=== PATIENT | female | born 1965 | race Caucasian/White ===

== ENCOUNTER 2018-05-10 04:48 | Emergency (ER) | payer MEDICARE, MEDICAID, SELFPAY ==
[2018-05-10 04:48] VITALS: BP 152/80; PULSE 110; RESP 22; TEMP 36.9; O2SAT 99; BMI 29.7
--- NOTE | 2018-05-10 05:00 | CT_ITS ---
STUDY: CT BRAIN WITHOUT CONTRAST REASON FOR EXAM: Female, 52 years old. Headaches RADIATION DOSAGE (If Supplied By Facility): CTDIvol = ( 44.99 ) mGy, DLP = ( 779.24 ) mGycm TECHNIQUE: Transaxial CT imaging of the brain was performed without administration of intravenous contrast material. Individualized dose optimization techniques were used for this CT. COMPARISON: None. FINDINGS: Normal soft tissue structures. Normal calvarium. Normal size ventricles and extra-axial spaces for the patient's age. Normal white matter tracts of the cerebral hemispheres. Normal basal ganglia and thalami. Normal brainstem. Normal cerebellum. There is no intracranial hemorrhage. There are no findings of an acute ischemic infarction. Normal visualized paranasal sinuses. CT/Brain/Head without Contrast IMPRESSION: Normal unenhanced CT scan of the brain. No acute findings in the brain Electronically Signed: Zay Rodriguez, at 6:03 EDT Tel , Service support ,
--- NOTE | 2018-05-10 05:00 | EKG12_ITS ---
Test Reason : GEN ILL Blood Pressure : / mmHG Vent. Rate : 093 BPM Atrial Rate : 093 BPM P-R Int : 148 ms QRS Dur : 088 ms QT Int : 370 ms P-R-T Axes : 048 003 013 degrees QTc Int : 460 ms Normal sinus rhythm Normal ECG Confirmed by ELEN DELVALLE, FELTON ([id number]), editor publications MARLON GALEANA ([id number]) on 05/11/2018 11:53:00 AM Referred By: CF Confirmed By:FELTON MYRICK MD
--- NOTE | 2018-05-10 05:00 | RAD_ITS ---
STUDY: X-RAY CHEST REASON FOR EXAM: Female, 52 years old. Cough TECHNIQUE: 1 view COMPARISON: None. FINDINGS: The lungs are clear and expanded. There is no demonstrated pleural abnormality. Normal size heart. Normal mediastinum and elvie. Normal visualized pulmonary arteries. Normal visualized aortic arch and descending thoracic aorta. Normal visualized thoracic spine. Normal visualized ribs, clavicles, and shoulders. There is no demonstrated abnormality of the visualized soft tissue structures of the upper abdomen. RAD/Chest 1 View (Portable) IMPRESSION: Normal x-ray examination of the chest. No acute findings in the lungs Electronically Signed: Zay Rodriguez, at 5:36 EDT Tel , Service support ,
--- NOTE | 2018-05-10 05:05 | ED.VISSUMM ---
- ER Visit Summary Date of Service: 05/10/18 Chief Complaint: [Lightheadedness, nausea] History of Present Illness: The patient is a 52 F [that presents with multiple complaints. Patient states that she stood up she felt lightheaded like she was going to pass out. She denies any chest pain or shortness of breath. She describes mild headache and nausea. No recent fall or trauma. She has a history of anxiety and depression and per friend at bedside states that she has been under a lot of stress lately. She overall appears well and in no acute distress. She denies any abdominal pain or urinary symptoms. No fever or recent illness. She denies recent travel. No other complaints.] Physical Examination: [General: The patient appears well and in no apparent distress. Patient is resting comfortably on cart. Skin: Warm, dry, no pallor noted. No rash. Head: Normocephalic, atraumatic Neck: Supple, nontender. No meningismus. Eye: PERRLA, EOMI ENT: Moist mucus membranes, pharynx within normal limits. Cardiovascular: Regular Rate and Rhythm, no gallups or rubs Respiratory: Patient is in no distress, no accessory muscle use, lungs are clear to auscultation, no wheezing, rales or rhonchi Musculoskeletal: normal ROM, no deformity, no tenderness, no swelling. 2+ radial and DP pulses symmetric. GI: No tenderness to palpation, no masses appreciated. No rebound, guarding, or rigidity noted. Neurological: A&O, normal strength and sensation. Psychiatric: Cooperative] Test Results: [Blood work overall unremarkable. Urinalysis not consistent with infection. HCG negative. Chest x-ray and CT imaging of the head showed no acute process.] Emergency Department Course and Treatment: [Patient was given Tylenol and IV fluids. Blood work, chest x-ray, EKG, and CT head imaging were obtained. Reevaluation at 0630 patient is sitting up in bed and states she feels improved. She has no new complaints. Her lightheadedness is resolved. She was able to ambulate in the emergency department without difficulty. At this time I feel she is stable for discharge and close follow-up with her primary provider. She was instructed to return with any new or worsening symptoms. Patient understands and is agreeable with this plan of care. Patient was discharged home in stable condition.] Treatment Plan: [see above] Disposition: [discharge home] Impression: [Lightheadedness - resolved, Near Syncope] This note was generated with [employer] dictation software. It may contain incorrect words, spelling, and punctuation that were not noted in review of the chart prior to signing ED Disposition - Plan for ED Patient: Disposition: Home or Assisted Living Chief Complaint: General Illness Instructions: ED Near Syncope Unkn, ED Dizziness [facility] Referrals: Raúl Eric MD [Primary Care Provider] -
[2018-05-10] MEDS: Acetaminophen 500 MG Tablet 1000 MG PO (05:08)
[2018-05-10] MEDS: 0.9% Normal Saline 1,000 ML 1000 ML IV (05:13)
[2018-05-10 05:14] LABS: Absolute Lymphocyte Count 2.09 X10^3/ul (0.83-4.51); Absolute Neutrophil Count 6.2 X10^3/uL (2.0-7.7); Basophil# 0.04 X10^3/uL; Basophil% 0.4 % (0-1); Eosinophil# 0.19 X10^3/uL; Eosinophils% 2.1 % (0-5); Hematocrit 35.2 % (37-47); Hemoglobin 11.7 g/dl (12.0-15.0); Lymphocyte # 2.09 X10^3/ul (4.0); Lymphocyte % 22.6 % (19-41); Mean Corp Hgb Conc 33.2 g/gl (32-36); Mean Corpuscular Hgb 28.3 pg (27.0-32.0); Monocyte% 7.6 % (0-10); Neutrophil # 6.19 X10^3/uL (2.7-7.7); Neutrophil % 67.1 % (47-70); Platelet Count 307 K/mm3 (150-450); RBC Distribution Width CV 13.2 % (11.6-14.6); RBC Distribution Width SD 40.7 fl (35.1-43.9); Red Blood Count 4.14 M/mm3 (4.2-5.4); White Blood Count 9.2 K/mm3 (4.4-11.0)
[2018-05-10 05:24] LABS: POSITIVE COUNT NO; POSITIVE DIFFERENTIAL NO; POSITIVE MORPHOLOGY NO
[2018-05-10 05:30] LABS: ALB/GLOB Ratio 0.9 RATIO (0.9-2.4); AST(SGOT) 15 U/L (15-37); Alanine Aminotransfer ALT/SGPT 20 U/L (13-56); Albumin, Serum 3.5 g/dL (3.2-5.0); Alkaline Phosphatase 107 U/L (45-117); Anion Gap 9 (5-15); BUN 29 mg/dL (7-18); BUN/Creat Ratio 29.2 RATIO (10-20); Calcium,Total 8.8 mg/dL (8.5-10.1); Chloride 106 mmol/L (98-107); Creatinine, Serum 0.99 mg/dL (0.55-1.02); EST Glomerular Filtration Rate 62 mL/min (>60); Est Glom Filt Rate - Afr Amer 75 mL/min (>60); Estimated Creatinine Clearance 62.23 ml/min; Globulin 3.9 g/dL (2.2-4.2); Glucose 132 mg/dL (74-106); Protein, Total 7.4 g/dL (6.4-8.2); Sodium Level 141 mmol/L (136-145)
[2018-05-10 06:01] LABS: Bacteria 0 SEEN /hpf (None Seen); Mucous, Urine 0 SEEN /hpf (<or=2+); Red Blood Cells-Urine 0 SEEN /hpf (0-5); White Blood Cells 0 SEEN /hpf (0-5)
[2018-05-10 06:05] LABS: Color, Urine Straw (Yellow); Glucose, Dipstick 100 mg/dl (Normal); Ketone-Dipstick Negative (Negative); Leukocyte Esterase-Dipstick Negative /ul (Negative); Nitrite-Dipstick Negative (Negative); Occult Blood-Urine Negative /ul (Negative); Protein-Dipstick Negative (Negative); Specific Gravity, Urine 1.005 (1.002-1.030); Urine Bilirubin Dipstick Negative (Negative); Urine Clarity Clear (Clear); Urine Urobilinogen Normal (Normal)
[2018-05-10 06:07] LABS: Internal QC Validated? YES +Cl - CLEAR BKGD; Pregnancy, Urine Negative Negative
[2018-05-10 06:16] LABS: Squamous Epithelial Cells - UA 0-5 SEEN /hpf (5-10)
--- NOTE | 2018-05-10 06:39 | ED.VISSUMM ---
- ER Visit Summary Date of Service: 05/10/18 Chief Complaint: [] History of Present Illness: The patient is a 52 F [] Physical Examination: [] Test Results: [] Emergency Department Course and Treatment: [] Treatment Plan: [] Disposition: [] Impression: [] This note was generated with [employer] dictation software. It may contain incorrect words, spelling, and punctuation that were not noted in review of the chart prior to signing ED Disposition - Plan for ED Patient: Disposition: Home or Assisted Living Chief Complaint: General Illness Instructions: ED Dizziness [facility], ED Near Syncope Unkn Referrals: Raúl Eric MD [Primary Care Provider] -
--- NOTE | 2018-05-10 06:42 | ED.DCSUM_ITS ---
- ER Visit Summary Date of Service: 05/10/18 Chief Complaint: [] History of Present Illness: The patient is a 52 F [] Physical Examination: [] Test Results: [] Emergency Department Course and Treatment: [] Treatment Plan: [] Disposition: [] Impression: [] This note was generated with [employer] dictation software. It may contain incorrect words, spelling, and punctuation that were not noted in review of the chart prior to signing ED Disposition - Plan for ED Patient: Disposition: Home or Assisted Living Chief Complaint: General Illness Instructions: ED Dizziness [facility], ED Near Syncope Unkn Referrals: Raúl Eric MD [Primary Care Provider] -
[2018-05-10 06:49] VITALS: BP 147/84; PULSE 89; PULSE 90; O2SAT 97
== END 2018-05-10 06:52 | disposition home or self-care (01) ==
PROVIDERS: Emergency Provider Emergency Medicine; Family Provider Family Medicine; PCP Family Medicine
DX: R55 Syncope and collapse (principal); E11.40 Type 2 diabetes mellitus with diabetic neuropathy, unspecified; E66.9 Obesity, unspecified; Z79.4 Long term (current) use of insulin; Z79.899 Other long term (current) drug therapy
CPT/HCPCS: 70450; 71045; 80053; 81001; 81025; 85025; 93005; 99285; J7030

== ENCOUNTER 2018-08-17 14:04 | Emergency (ER) | payer MEDICARE, MEDICAID, SELFPAY ==
[2018-08-17 14:06] VITALS: BP 145/78; PULSE 98; RESP 17; TEMP 36.9; O2SAT 100; BMI 28.5
--- NOTE | 2018-08-17 14:52 | RAD_ITS ---
STUDY: X-RAY - LEFT FOOT CLINICAL: Female, 53 years old. One-month history of pain bilaterally. TECHNIQUE: 3 view(s) of the foot. COMPARISON: Comparison is made with prior study dated January 27, 2015. FINDINGS: Normal talus, calcaneus, and tarsal bones. Normal visualized subtalar, talonavicular, calcaneocuboid, tarsal and tarsometatarsal articulations. Since prior study, the patient has undergone almost complete resection of the fifth metatarsal and fifth toe. Normal metatarsophalangeal joint of the great toe. Normal tibial and fibular sesamoid bones. Normal interphalangeal joint of the great toe. Normal phalanges of the great toe. Normal second through fifth metatarsophalangeal joints. Normal interphalangeal joints and phalanges of the lesser toes. Soft tissue swelling overlying the base of the fifth metatarsal. RAD/Foot min 3 Views IMPRESSION: Soft tissue swelling overlying the base of the fifth metatarsal. Status post resection of the mid and distal portion of the fifth metatarsal and fifth toe. Electronically Signed: Ronnie Saavedra MD at 15:10 EST Tel [phone], Service support ,
--- NOTE | 2018-08-17 14:52 | RAD_ITS ---
STUDY: X-RAY - RIGHT FOOT CLINICAL: Female, 53 years old. One-month history of pain. TECHNIQUE: 3 view(s) of the foot. COMPARISON: Comparison is made with prior examination dated October 08, 2014. FINDINGS: Normal talus, calcaneus, and tarsal bones. There now is evidence of sclerosis and inhomogeneous density of the tarsal bones. Charcot's deformity should be ruled out. The patient is status post amputation of the mid and distal portion of the fifth metatarsal as well as the fifth toe. Normal metatarsophalangeal joint of the great toe. Normal tibial and fibular sesamoid bones. Normal interphalangeal joint of the great toe. Normal phalanges of the great toe. Normal second through fifth metatarsophalangeal joints. Normal interphalangeal joints and phalanges of the lesser toes. Soft tissue swelling. RAD/Foot min 3 Views IMPRESSION: Status post amputation of the mid and distal portion of the fifth metatarsal and fifth toe. Irregular density of the distal row of the tarsal joints as well as tarsal metatarsal joint suggestive of a Charcot's deformity. Electronically Signed: Ronnie Saavedra MD at 15:34 EST Tel [phone], Service support ,
[2018-08-17] MEDS: 0.9% Normal Saline 1,000 ML 1000 ML IV (15:03)
[2018-08-17] MEDS: Morphine 4 MG/ML Syringe IV (15:03)
[2018-08-17] MEDS: Ondansetron 4 MG/2 ML Vial IV (15:03)
[2018-08-17 15:12] LABS: Absolute Neutrophil Count 9.4 X10^3/uL (2.0-7.7); Basophil# 0.02 X10^3/uL; Basophil% 0.2 % (0-1); Eosinophils% 0.8 % (0-5); Hematocrit 39.7 % (37-47); Hemoglobin 13.2 g/dl (12.0-15.0); Lymphocyte % 11.9 % (19-41); Mean Corp Hgb Conc 33.2 g/gl (32-36); Mean Corpuscular Hgb 28.7 pg (27.0-32.0); Mean Corpuscular Volume 86.3 fL (81-99); Mean Platelet Vol. 10.7 fl (6.2-12.0); Monocyte% 6.8 % (0-10); Neutrophil # 9.44 X10^3/uL (2.7-7.7); Neutrophil % 80.1 % (47-70); Platelet Count 346 K/mm3 (150-450); RBC Distribution Width CV 13.7 % (11.6-14.6); RBC Distribution Width SD 43.1 fl (35.1-43.9); White Blood Count 11.8 K/mm3 (4.4-11.0)
[2018-08-17 15:13] LABS: POSITIVE COUNT NO; POSITIVE DIFFERENTIAL NO; POSITIVE MORPHOLOGY NO
[2018-08-17 15:22] LABS: Anion Gap 9 (5-15); BUN 20 mg/dL (7-18); BUN/Creat Ratio 18.7 RATIO (10-20); Calcium,Total 9.5 mg/dL (8.5-10.1); Chloride 103 mmol/L (98-107); Creatinine, Serum 1.07 mg/dL (0.55-1.02); EST Glomerular Filtration Rate 57 mL/min (>60); Est Glom Filt Rate - Afr Amer 69 mL/min (>60); Estimated Creatinine Clearance 56.92 ml/min; Glucose 251 mg/dL (74-106); Potassium 3.6 mmol/L (3.5-5.1); Sodium Level 135 mmol/L (136-145)
--- NOTE | 2018-08-17 16:04 | ED.VISSUMM ---
- ER Visit Summary Date of Service: 08/17/18 Chief Complaint: Bilateral foot pain History of Present Illness: The patient is a [address] Mik Kirk and Dr. Allen. She reports that she has had her small toe amputated bilaterally by Dr. Guido 3-4 years ago. She reports that her right foot is chronically swollen. She states that she has pain in the bottom of her right foot that is 6 out of 10 with walking and she is pain-free at rest. She reports that her left foot began swelling this week. States that she has pain that is 7 out of 10 at rest there is an 8 out of 10 with walking. She describes the pain as throbbing. She denies any constitutional symptoms. No fever, chills, nausea, or vomiting. Physical Examination: Vitals: Stable. Afebrile. General: Well-nourished and well-developed. Head: Normocephalic atraumatic. Neck: Supple, no lymphadenopathy. No JVD. Nontender. Cardiovascular: Regular rate and rhythm. No murmurs. Respiratory: No respiratory distress. Clear to auscultation bilaterally. Abdominal: Soft, nontender, nondistended, normal bowel sounds. No guarding, rebound, or peritoneal signs. Back: Nontender. Extremities: 2+ dorsalis pedis pulse bilaterally. She has soft tissue swelling on the bottom of both feet over the area where the fifth metatarsal would be present. The swelling appears old. There is callus on both of them. There is approximately 2 mm central defect on both as well. There is no drainage. There is no surrounding erythema, induration, or fluctuance. Skin: Normal color, no rash. Neurologic: Alert and oriented ?3. Cranial nerves II through XII are intact. Normal strength and sensation. Psych: Normal affect. Test Results: CBC is remarkable for a white count of 11.8 with 80 segmented neutrophils and 12 lymphocytes. Chem-7 is more for sodium 135, BUN 20, creatinine 1.07, glucose 251. Clinical Impression(s) from Imaging Studies Foot X-Ray 08/17/18 14:52 IMPRESSION: Status post amputation of the mid and distal portion of the fifth metatarsal and fifth toe. Irregular density of the distal row of the tarsal joints as well as tarsal metatarsal joint suggestive of a Charcot's deformity. Electronically Signed: Ronnie Saavedra MD at 15:34 EST Tel [phone], Service support , Foot X-Ray 08/17/18 14:52 IMPRESSION: Soft tissue swelling overlying the base of the fifth metatarsal. Status post resection of the mid and distal portion of the fifth metatarsal and fifth toe. Electronically Signed: Ronnie Saavedra MD at 15:10 EST Tel [phone], Service support , Emergency Department Course and Treatment: Patient had her pain treated with morphine IV. She was also given doxycycline p.o. and Zofran IV. She is resting comfortably. Treatment Plan: Patient reports that she has brought in able to get her ankle foot orthotics filled. She also does not have her diabetic shoes. She states that both of these are at [facility] and they will not give them to her until August 28. She was placed in a walking boot on the left and already has one for the right. She was discussed with Dr. Allen and is scheduled to see him tomorrow. She will be discharged instructions to follow-up tomorrow as previously scheduled. She will be given doxycycline and [place]. Return to the emergency department for any worsening symptoms. Disposition: To home in improved and stable condition. Impression: 1. Postsurgical changes to feet bilaterally. This note was generated with [employer] dictation software. It may contain incorrect words, spelling, and punctuation that were not noted in review of the chart prior to signing ED Disposition - Plan for ED Patient: Disposition: Home or Assisted Living Chief Complaint: Lower Extremity Injury Instructions: Diabetes: Treating Minor Foot Infections Prescriptions: Hydrocodone Bitart/Apap 5-325 [[place] 5MG-325MG] 1 tablet PO Q4H PRN PRN 2 Days #10 tablet PRN Reason: Pain Doxycycline Monohydrate 100 mg PO BID #20 capsule Referrals: Landen Allen DPM [STAFF PHYSICIAN] - 1 Day for another exam
--- NOTE | 2018-08-17 16:08 | ED.DCSUM_ITS ---
- ER Visit Summary Date of Service: 08/17/18 Chief Complaint: Bilateral foot pain History of Present Illness: The patient is a [address] Mik Kirk and Dr. Allen. She reports that she has had her small toe amputated bilaterally by Dr. Guido 3-4 years ago. She reports that her right foot is chronically swollen. She states that she has pain in the bottom of her right foot that is 6 out of 10 with walking and she is pain-free at rest. She reports that her left foot began swelling this week. States that she has pain that is 7 out of 10 at rest there is an 8 out of 10 with walking. She describes the pain as throbbing. She denies any constitutional symptoms. No fever, chills, nausea, or vomiting. Physical Examination: Vitals: Stable. Afebrile. General: Well-nourished and well-developed. Head: Normocephalic atraumatic. Neck: Supple, no lymphadenopathy. No JVD. Nontender. Cardiovascular: Regular rate and rhythm. No murmurs. Respiratory: No respiratory distress. Clear to auscultation bilaterally. Abdominal: Soft, nontender, nondistended, normal bowel sounds. No guarding, rebound, or peritoneal signs. Back: Nontender. Extremities: 2+ dorsalis pedis pulse bilaterally. She has soft tissue swelling on the bottom of both feet over the area where the fifth metatarsal would be present. The swelling appears old. There is callus on both of them. There is approximately 2 mm central defect on both as well. There is no drainage. There is no surrounding erythema, induration, or fluctuance. Skin: Normal color, no rash. Neurologic: Alert and oriented ?3. Cranial nerves II through XII are intact. Normal strength and sensation. Psych: Normal affect. Test Results: CBC is remarkable for a white count of 11.8 with 80 segmented neutrophils and 12 lymphocytes. Chem-7 is more for sodium 135, BUN 20, creatinine 1.07, glucose 251. Clinical Impression(s) from Imaging Studies Foot X-Ray 08/17/18 14:52 IMPRESSION: Status post amputation of the mid and distal portion of the fifth metatarsal and fifth toe. Irregular density of the distal row of the tarsal joints as well as tarsal metatarsal joint suggestive of a Charcot's deformity. Electronically Signed: Ronnie Saavedra MD at 15:34 EST Tel [phone], Service support , Foot X-Ray 08/17/18 14:52 IMPRESSION: Soft tissue swelling overlying the base of the fifth metatarsal. Status post resection of the mid and distal portion of the fifth metatarsal and fifth toe. Electronically Signed: Ronnie Saavedra MD at 15:10 EST Tel [phone], Service support , Emergency Department Course and Treatment: Patient had her pain treated with morphine IV. She was also given doxycycline p.o. and Zofran IV. She is resting comfortably. Treatment Plan: Patient reports that she has brought in able to get her ankle foot orthotics filled. She also does not have her diabetic shoes. She states that both of these are at [email or web address] and they will not give them to her until August 28. She was placed in a walking boot on the left and already has one for the right. She was discussed with Dr. Allen and is scheduled to see him tomorrow. She will be discharged instructions to follow-up tomorrow as previously scheduled. She will be given doxycycline and [place]. Return to the emergency department for any worsening symptoms. Disposition: To home in improved and stable condition. Impression: 1. Postsurgical changes to feet bilaterally. This note was generated with [employer] dictation software. It may contain incorrect words, spelling, and punctuation that were not noted in review of the chart prior to signing ED Disposition - Plan for ED Patient: Disposition: Home or Assisted Living Chief Complaint: Lower Extremity Injury Instructions: Diabetes: Treating Minor Foot Infections Prescriptions: Hydrocodone Bitart/Apap 5-325 [[place] 5MG-325MG] 1 tablet PO Q4H PRN PRN 2 Days #10 tablet PRN Reason: Pain Doxycycline Monohydrate 100 mg PO BID #20 capsule Referrals: Landen Allen DPM [STAFF PHYSICIAN] - 1 Day for another exam
[2018-08-17 16:47] VITALS: BP 138/74; PULSE 61; RESP 15; O2SAT 97
[2018-08-17] MEDS: Doxycycline 100 MG CAPSULE PO (16:49)
== END 2018-08-17 16:53 | disposition home or self-care (01) ==
PROVIDERS: Emergency Provider Emergency Medicine; Family Provider Family Medicine; PCP Family Medicine
DX: M79.671 Pain in right foot (principal); M79.672 Pain in left foot; M79.89 Other specified soft tissue disorders; E11.9 Type 2 diabetes mellitus without complications; Z89.422 Acquired absence of other left toe(s); Z89.421 Acquired absence of other right toe(s)
CPT/HCPCS: 73630; 80048; 85025; 96361; 96374; 96375; 99285; J7030; A4216; J2405

== ENCOUNTER 2018-08-22 15:20 | Inpatient (IN) | payer MEDICARE, MEDICAID, SELFPAY ==
--- NOTE | 2018-08-22 15:41 | PCM.HP.STD ---
<Valencia Peterson - Last Filed: 08/22/18 16:40> Problem List (1) Back pain, chronic Status: Chronic (2) Hyponatremia Status: Chronic (3) Depression Status: Chronic (4) Diabetic foot ulcer associated with type 2 diabetes mellitus Status: Chronic (5) RLS (restless legs syndrome) Status: Chronic (6) Type II diabetes mellitus, uncontrolled Status: Chronic (7) Anxiety state Status: Chronic History of Present Illness Date of Admission: 08/22/18 Chief Complaint: Left foot diabetic ulcer, left foot pain. The patient is a 53 year old F who presents from podiatry office due to left foot diabetic ulcer. She follows with Dr. Allen. She was placed on doxycycline 08/18/18 following emergency room visit due to bilateral foot pain. Patient has diabetic ulcers bilateral lateral plantar aspect of feet. X-ray of the right foot 08/17/18 shows status post amputation of the mid and distal portion of the fifth metatarsal and fifth toe. Irregular density of the distal row of the tarsal joints as well as a tarsal metatarsal joint suggestive of charcot's deformity. Wound cx 08/17/18 positive for group B strep per podiatry office. Patient states she was to have surgery on the right foot when her left foot started to have swelling with pain 2 weeks ago. 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 She denies fever, chills. Denies GI/ complaints. Complains of significant left foot pain. She reports her diabetes is poorly controlled due to noncompliance with diet. Her past medical history includes type 2 diabetes mellitus, restless leg syndrome, depression, anxiety, chronic back pain, hyperlipidemia. Past Medical History Past Medical History (Chronic Problems): Chronic Problems Back pain, chronic (Chronic) Hyponatremia (Chronic) Depression (Chronic) Diabetic foot ulcer associated with type 2 diabetes mellitus (Chronic) RLS (restless legs syndrome) (Chronic) Type II diabetes mellitus, uncontrolled (Chronic) Anxiety state (Chronic) Allergies oxycodone [Oxycodone] Allergy (Verified 08/17/18 14:04) Rash oxycodone HCl [From OxyContin] Allergy (Verified 08/17/18 14:04) Rash Penicillins Allergy (Verified 08/17/18 14:04) Shortness of breath Home Medications: Ambulatory Orders Medication Instructions Recorded Insulin Detemir [Levemir FlexPen] 30 units SC BREAKFAST 01/13/14 Ropinirole HCl [Requip] 3 mg PO BID 01/13/14 Insulin Aspart [Novolog Flexpen] 15 units SC TIDCM 01/27/15 Doxycycline Monohydrate 100 mg PO BID #20 capsule 08/17/18 Alpha Lipoic Acid 600 mg PO DAILY 08/22/18 Ascorbic Acid 500 mg PO BID 08/22/18 Collagenase [Santyl] 1 applicatio TOPICAL DAILY 08/22/18 Ergocalciferol [Vitamin D] 50,000 unit PO GRAY 08/22/18 Gabapentin [Neurontin] 800 mg PO TID 08/22/18 Hydrocodone/Acetaminophen 1 tab PO Q4H PRN 08/22/18 [Hydrocodone-Acetamin 5-325 mg] Magnesium Oxide [Magnesium] 400 mg PO BID 08/22/18 Omeprazole [Prilosec] 20 mg PO DAILY 08/22/18 Rosuvastatin Calcium [Crestor] 40 mg PO DAILY 08/22/18 Surgical History: - - status post I&D of R foot 5th metatarsal abscess, 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 Bilateral carpal tunnel surgery 1994, right shoulder surgery in 1994, section x2. 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 She had had multiple strokes preceding that. Paternal History Items: - - Patient states her father when she was 5 years old, denies known medical history, denies known cardiac history. Sibling History Items: - - She has one brother who is secondary to cancer and she does not know what kind of cancer he had. She also has 3 brothers with a history of cardiovascular disease, stents and coronary artery bypass grafting. Review of Systems Constitutional: Denies: Chills, Fever, Weight Change HEENT: Denies: Head Aches, Sinus Congestion, Sinus Drainage Cardiovascular: Denies: Chest Pain, Light Headedness, Palpitations, Syncope Respiratory: Denies: Cough, Shortness of breath at rest, Sputum production Gastrointestinal: Reports: Nausea - attributed to oral antibiotic. Denies: Abdominal Pain, Vomiting Genitourinary: Denies: Dysuria Musculoskeletal: Reports: - - Left foot pain. Denies: Joint Pain, Joint Tenderness Skin: Reports: Wounds - bilateral foot diabetic ulcers Neurological: Reports: - - Chronic diabetic neuropathy. Denies: Focal weakness, Numbness, Tingling Psychiatric: Reports: Anxiety, Depression Hematologic/ Lymphatic: Denies: Easy Bruising, Easy Bleeding VTE Information - Inpt Only VTE Present on Admission: No VTE Mechan Device Prophylaxis: None VTE Pharm Prophylaxis ordered?: Yes - Physical Exam General: Alert, Oriented x3, Cooperative, No apparent distress HEENT: Atraumatic, PERRLA, EOMI, Normocephalic Neck: Supple, No JVD, Negative Carotid Bruits Lungs: Clear to auscultation, Normal air movement Cardiovascular: Regular rate, Regular Rhythm, Normal S1, Normal S2, No murmurs Abdomen: Bowel Sounds Present, Soft, Non Tender, Non-Distended Extremities: No clubbing, No cyanosis, No edema Skin: - - Diabetic ulcer bilateral lateral plantar aspect of feet. Left foot with mild serosanguineous drainage. No foul odor. Left foot generalized erythema and warmth. Musculoskeletal: No Tenderness to Palpation of Joints or Extremities, - - Bilateral charcot foot deformity. Neurological: Cranial nerves II-XII grossly intact, Neuro grossly intact Psych/Mental Status: Normal Affect, Appropriate Assessment/Plan All Active Problems Hepatitis B (Resolved) 1. Left foot diabetic ulcer with cellulitis-Failed outpatient antibiotic therapy with doxy. Following with podiatry, Dr. Allen. X-ray of the right foot 08/17/18 shows status post amputation of the mid and distal portion of the fifth metatarsal and fifth toe. Irregular density of the distal row of the tarsal joints as well as a tarsal metatarsal joint suggestive of charcot's deformity. ID consult. Obtain MRI LLE. Wound cx 08/17/18 positive for group B strep. IV flagyl, IV levaquin and IV vancomycin. oxyir PRN for pain. PT/OT. Wound RN consult. Repeat wound culture. 2. Type 2 diabetes mellitus, poorly controlled, associated diabetic neuropathy-most recent hemoglobin A1c 12.8%. Accu-Cheks before meals at bedtime with sliding scale insulin. Continue home Levemir regimen. Repeat hemoglobin A1c. 3. Chronic back pain-PT/OT. PRN pain regimen. Continue gabapentin regimen. 4. Restless leg syndrome-continue Requip regimen. 5. Hyperlipidemia-continue statin. 6. Depression/anxiety-no longer on regimen. DVT prophylaxis- SCDs. This patient was seen by BRIAN Mathews under the supervision of Dr. Humphries. <Annie Duran - Last Filed: 08/22/18 18:11> History of Present Illness The patient is a 53 year old F [] Past Medical History Allergies oxycodone [Oxycodone] Allergy (Verified 08/17/18 14:04) Rash oxycodone HCl [From OxyContin] Allergy (Verified 08/17/18 14:04) Rash Penicillins Allergy (Verified 08/17/18 14:04) Shortness of breath - Physical Exam Vital Signs Temp Pulse Resp BP Pulse Ox 98.4 F 90 18 140/68 H 98 08/22/18 16:36 08/22/18 16:36 08/22/18 16:36 08/22/18 16:36 08/22/18 16:36 Oxygen Delivery Method Room Air Weight: 80.649 kg Body Mass Index (BMI) 28.7 Intake and Output for Last 24 Hours 08/20/18 08/21/18 08/22/18 23:59 23:59 23:59 Intake Total 550 / 550 Output Total 250 / 250 Balance 300 / 300 Laboratory Tests Past 24 Hrs 08/22/18 08/22/18 08/22/18 16:15 16:50 16:50 ESR PT INR Sodium 136 Potassium 4.0 Chloride 101 Carbon Dioxide 25.0 Anion Gap 10 BUN 17 Creatinine 0.96 Estim Creat Clear Calc 63.44 Est GFR (MDRD) Af Amer 78 Est GFR (MDRD) Non-Af 65 BUN/Creatinine Ratio 17.7 Glucose 353 H Hemoglobin A1c 12.0 H Calcium 8.9 Total Bilirubin 0.40 AST 6 L ALT 16 Alkaline Phosphatase 111 C-React Prot Ext Range Total Protein 7.7 Albumin 3.0 L Globulin 4.7 H Albumin/Globulin Ratio 0.6 L S.aureus Protein A PCR Pending MRSA (PCR) Pending 08/22/18 08/22/18 08/22/18 16:50 16:50 16:50 ESR 123 H PT 13.8 INR 1.1 Sodium Potassium Chloride Carbon Dioxide Anion Gap BUN Creatinine Estim Creat Clear Calc Est GFR (MDRD) Af Amer Est GFR (MDRD) Non-Af BUN/Creatinine Ratio Glucose Hemoglobin A1c Calcium Total Bilirubin AST ALT Alkaline Phosphatase C-React Prot Ext Range Pending Total Protein Albumin Globulin Albumin/Globulin Ratio S.aureus Protein A PCR MRSA (PCR) POC Glucose 08/22/18 16:23 POC Glucose 383 H Assessment/Plan This patient was seen in conjunction with Valencia Peterson NP. I have independently interviewed and examined the patient and reviewed pertinent historical, laboratory, and other data. Please refer to her note for patient's presentation, findings, and recommendations. 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 Patient has history of bilateral ray amputations done 3/4 years ago. She admits to being noncompliant with her diet. Her last HbA1c was reported 12.8 more than 3 months ago. She has been following up with a ticket dispenser changer for chronic nonhealing ulcers. She is being sent here with concern for possible osteomyelitis. PMHx: Type II DM complicated by peripheral neuropathy, chronic bilateral feet ulcers, anxiety/depression, restless leg, chronic pain syndrome/peripheral neuropathy PSHx: Status post section, hysterectomy, bilateral re-amputations, right shoulder surgery FHX: Diabetes in mother, hypertension, strokes, history of heart disease in her brothers SHx: Denies any use of alcohol, or smoking. Denies use of illicit drugs Physical Exam: Vitals: Temperature of 98.4F, heart rate 90, blood pressure 140/68, respiratory rate 18, SPO2 90% on room air Gen: Comfortable, not pale, not jaundiced, alert oriented x3 CVS:HS I +II, regular, no murmurs RESP: Clinically clear to auscultation GI: BS present, soft, nontender, no palpable organs EXT: Bilateral chronic plantar ulcers, Charcot foot, status post biulateral rayamputation with scars, mild differential warmth of the left foot, with mild erythema ASSESSMENT: 1. Left diabetic infected foot ulcer with cellulitis 2. Bilateral chronic diabetic foot ulcers 3. Type II DM with peripheral neuropathy 4. Hypertension 5. Anxiety/depression 6. Restless leg syndrome 7. Penicillin allergy Penicillin allergy Meds reviewed Plan: ID, podiatry consult MRI of the left foot IV Levaquin, Flagyl, vancomycin Local wound care and further management per Podiatry Blood sugar control Pain control Continue home meds Code Visit Inpatient E&M: 67699 Init Hosp L3
[2018-08-22 16:02] VITALS: BMI 28.7
--- NOTE | 2018-08-22 16:30 | MRI_ITS ---
STUDY: MRI LEFT MIDFOOT WITH AND WITHOUT CONTRAST REASON FOR EXAM: Left lateral foot wound, diabetic ulcer for 2 weeks. TECHNIQUE: Standardized fat and water weighted pulse sequences were obtained in all 3 orthogonal planes before and after intravenous administration of 9 mL of Gadavist. COMPARISON: Radiographs 08/17/2018 and MRI images 01/27/2015. FINDINGS: Normal talonavicular articulation. Normal calcaneocuboid articulation. There is arthropathy of the navicular-cuneiform articulations with chondral thinning and mild subchondral bone edema (inversion recovery sagittal images 8-15). Normal intercuneiform articulations. Normal first tarsometatarsal articulation. Normal Lisfranc ligament. There is arthropathy of the second through fifth tarsometatarsal joints with chondral thinning and mild subchondral bone edema adjacent to the second tarsometatarsal joint (inversion recovery sagittal images 12, 13) and third tarsometatarsal joint (inversion recovery sagittal images 15, 16), and mild subchondral cystic change/slight bone edema adjacent to the fourth and fifth tarsometatarsal joints (inversion recovery sagittal images 18, 19). There is amputation of the fifth metatarsal at the level of the proximal diaphysis without demonstrated recurrent osteomyelitis. Normal tibialis anterior tendon. Normal extensor hallucis longus tendon. Normal extensor digitorum longus tendons. Normal peroneus longus tendon and distal insertion. Normal peroneus brevis tendon and distal insertion. There is atrophy with partial fat replacement of the intrinsic muscles of the foot (T1 sagittal images 7-17) suggestive of peripheral neuropathy. There is also contrast enhancement of the flexor digitorum brevis and abductor digiti minimi muscles (postcontrast T1 sagittal images 9-16) suggestive of myositis. There is edema in the subcutis adipose space particularly at the lateral aspect of the foot with contrast enhancement (postcontrast T1 series 9 images 15-27) consistent with cellulitis. There is no demonstrated soft tissue abscess. There is callus at the plantar aspect of the fifth metatarsal (T1 sagittal images 16-18). There is a small ganglion cyst dorsal to the medial aspect of the navicular-cuneiform articulations (inversion recovery sagittal images 7-9) measuring 0.9 cm in length. MRI/Lower Ext No Joint W/WO Cont IMPRESSION: Cellulitis without demonstrated soft tissue abscess. Arthropathy of the navicular-cuneiform and second through fifth tarsometatarsal joints suggestive of neuropathic osteoarthropathy. Myositis of the flexor digitorum brevis and abductor digiti minimi muscles. Atrophy of the intrinsic muscles of the foot suggestive of peripheral neuropathy. Amputation of the fifth digit at the level of the proximal metatarsal diaphysis without demonstrated recurrent osteomyelitis. Electronically Signed: Saqib Roberts MD at 7:55 EST Tel , Service support ,
[2018-08-22 16:36] VITALS: BP 140/68; PULSE 90; RESP 18; TEMP 36.9; O2SAT 98
[2018-08-22 16:45] LABS: Bedside Glucose 383 mg/dL (70-110)
[2018-08-22 17:06] LABS: Erythrocyte Sedimentation Rate 123 mm/hr (0-30)
[2018-08-22 17:15] LABS: International Normalized Ratio 1.1; Prothrombin Time (Protime)PT. 13.8 SECONDS (11.7-14.9)
[2018-08-22] MEDS: levoFLOXacin IV 750 MG/150 ML BAG 100 MG IV (17:17)
[2018-08-22] MEDS: 0.9% Normal Saline 1,000 ML 100 ML IV (17:17)
[2018-08-22] MEDS: 0.9% NaCl Peripheral Flush Adult/Peds IV ×2 (17:21→20:34)
[2018-08-22 17:29] LABS: ALB/GLOB Ratio 0.6 RATIO (0.9-2.4); AST(SGOT) 6 U/L (15-37); Alanine Aminotransfer ALT/SGPT 16 U/L (13-56); Alkaline Phosphatase 111 U/L (45-117); Anion Gap 10 (5-15); BUN 17 mg/dL (7-18); BUN/Creat Ratio 17.7 RATIO (10-20); Calcium,Total 8.9 mg/dL (8.5-10.1); Chloride 101 mmol/L (98-107); Creatinine, Serum 0.96 mg/dL (0.55-1.02); EST Glomerular Filtration Rate 65 mL/min (>60); Est Glom Filt Rate - Afr Amer 78 mL/min (>60); Estimated Creatinine Clearance 63.44 ml/min; Globulin 4.7 g/dL (2.2-4.2); Glucose 353 mg/dL (74-106); Protein, Total 7.7 g/dL (6.4-8.2); Sodium Level 136 mmol/L (136-145)
[2018-08-22] MEDS: Insulin Lispro 100 UNIT/ML INSULN.PEN SC ×2 (17:30→22:18)
[2018-08-22 18:00] VITALS: PULSE 99
[2018-08-22] MEDS: Pramipexole Di-HCl 0.5 MG Tablet 1.5 MG PO (18:07)
[2018-08-22] MEDS: HYDROcodone Bitartrate/Apap 5/325 Tablet PO (18:08)
[2018-08-22 19:38] LABS: M R Staph aureus DNA By PCR Negative (Negative); Probe Check PASS; Staph aureus DNA By PCR POSITIVE (Negative)
[2018-08-22 20:33] VITALS: BP 100/55; PULSE 87; RESP 16; TEMP 37; O2SAT 96
[2018-08-22 21:05] VITALS: PULSE 84
[2018-08-22 22:01] LABS: Bedside Glucose 326 mg/dL (70-110)
[2018-08-22] MEDS: Gabapentin 800 MG Tablet PO (22:26)
[2018-08-22] MEDS: Ascorbic Acid 500 MG Tablet PO (22:26)
[2018-08-22] MEDS: Atorvastatin Calcium 80 MG Tablet PO (22:26)
[2018-08-23] VITALS (15 sets, daily range): BP systolic 100–123; BP diastolic 58–78; PULSE 64–83; RESP 16–18; TEMP 36.2–37; O2SAT 94–100; BMI 28.7
--- NOTE | 2018-08-23 | BON_PTH ---
PATIENT: DIONY ROCHA LOC: [facility] U#:[id number] AGE/SX: 53/F ROOM: MN320 RE08/22/[address]: Dr. Raúl Perez DO : 1965 BED: 1 DIS: 08/25/2018 SPEC #: [id number] RECD: 08/23/18 18:55 STATUS: LON REQ #: [id number] ANEL: 08/23/18 00:[address]: Landen Allen DEPT: SURGICAL PATHOLOGY RECD BY: Ge Chairez ENTERED: 08/24/18 12:33 SP TYPE: Bone OTHR DR: MD Dr. Raúl Toscano MD Dr. Mark Tereletsky, DO Dr. Matthew Testrake, DPM Dr. Kike Tello MD Tissues: Bone of foot, NOS Procedures: Decalcification bone/plaque Surgery Specimen Level III Comments: @ Ordering doctor for DEC edited from to @ by SARAH at 08/24/18 161 @ Ordering doctor for III edited from to @ by SARAH at 08/24/18 1611 @ Submitting doctor edited from to @ eden SMITH at 08/24/181610 HEADER OPERATION: Incision, drainage diabetic foot ulcer with bone biopsy PRE-OP DIAGNOSIS: Diabetic foot infection with ulceration, left foot TISSUE SUBMITTED: 5th metatarsal bone biopsy, left foot MICROSCOPIC DIAGNOSIS Fifth metatarsal bone, left foot, core biopsy: A piece of bone with reactive changes, negative for acute osteomyelitis. MARY ANN:aristides 08/30/18 MICROSCOPIC DESCRIPTION Slides are reviewed. GROSS DESCRIPTION Received in fixative is one container labeled with the patient's name and designated fifth metatarsal bone biopsy. The specimen consists of a cylindrical fragment of mahajan bone measuring 1 cm in length and 0.1 cm in average diameter. The specimen is submitted in its entirety in 1 cassette after decalcification. / AM:sp 08/24/18 TC:5 CPT: 83581, 59221
[2018-08-23 00:31] LABS: Bedside Glucose 264 mg/dL (70-110)
[2018-08-23] MEDS: HYDROcodone Bitartrate/Apap 5/325 Tablet PO ×3 (00:34→20:31)
--- NOTE | 2018-08-23 00:56 | PCM.RX.CS ---
Consult Pharmacy has been consulted to manage selected antiobiotic: Vancomycin Type of Consult: New start Suspected Infection: Skin/Soft tissue Labs: Sodium 136 mmol/L (136-145) 08/22/18 16:50 Potassium 4.0 mmol/L (3.5-5.1) 08/22/18 16:50 Chloride 101 mmol/L (98-107) 08/22/18 16:50 Carbon Dioxide 25.0 mmol/L (21.0-32.0) 08/22/18 16:50 Anion Gap 10 (5-15) 08/22/18 16:50 BUN 17 mg/dL (7-18) 08/22/18 16:50 Creatinine 0.96 mg/dL (0.55-1.02) 08/22/18 16:50 Est GFR (MDRD) Af Amer 78 mL/min (>60) 08/22/18 16:50 Est GFR (MDRD) Non-Af 65 mL/min (>60) 08/22/18 16:50 BUN/Creatinine Ratio 17.7 RATIO (10-20) 08/22/18 16:50 Glucose 353 mg/dL (74-106) H 08/22/18 16:50 Weight used for dosin.6 kg Estimated Creatinine Clearance: 63.4 Goal Trough: 15-20 mcg/mL Pharmacy Plan for Drug Dosing: Pharmacy Service will continue to monitor and adjust dosing as required. Medications Vancomycin HCl (Vancomycin) 1,000 mg in 200 mls @ 200 mls/hr IV Q12H TAB Discontinued Medications Vancomycin HCl 1,250 mg/ (Sodium Chloride) 275 mls @ 167 mls/hr IV X1 ONE Stop: 08/22/18 19:38 Last Admin: 08/22/18 20:30 Dose: 167 mls/hr Follow-Up Labs: Trough Vancomycin Labs to be done on [date and time ordered]: 08/24 @ 2222
[2018-08-23] MEDS: Gabapentin 800 MG Tablet PO ×2 (06:01→23:04)
[2018-08-23 06:13] LABS: Absolute Lymphocyte Count 1.55 X10^3/ul (0.83-4.51); Absolute Neutrophil Count 4.6 X10^3/uL (2.0-7.7); Basophil# 0.02 X10^3/uL; Basophil% 0.3 % (0-1); Eosinophil# 0.16 X10^3/uL; Eosinophils% 2.4 % (0-5); Hematocrit 32.6 % (37-47); Hemoglobin 10.6 g/dl (12.0-15.0); Lymphocyte # 1.55 X10^3/ul (4.0); Mean Corp Hgb Conc 32.5 g/gl (32-36); Mean Corpuscular Hgb 28.6 pg (27.0-32.0); Mean Corpuscular Volume 87.9 fL (81-99); Mean Platelet Vol. 10.5 fl (6.2-12.0); Monocyte# 0.44 X10^3/uL; Monocyte% 6.5 % (0-10); Neutrophil # 4.55 X10^3/uL (2.7-7.7); Neutrophil % 67.7 % (47-70); Platelet Count 312 K/mm3 (150-450); RBC Distribution Width CV 13.5 % (11.6-14.6); RBC Distribution Width SD 43.4 fl (35.1-43.9); Red Blood Count 3.71 M/mm3 (4.2-5.4); White Blood Count 6.7 K/mm3 (4.4-11.0)
[2018-08-23 06:23] LABS: POSITIVE COUNT NO; POSITIVE DIFFERENTIAL NO; POSITIVE MORPHOLOGY NO
[2018-08-23 06:30] LABS: Anion Gap 9 (5-15); BUN 15 mg/dL (7-18); BUN/Creat Ratio 17.6 RATIO (10-20); Calcium,Total 8.5 mg/dL (8.5-10.1); Chloride 105 mmol/L (98-107); Creatinine, Serum 0.85 mg/dL (0.55-1.02); EST Glomerular Filtration Rate 74 mL/min (>60); Est Glom Filt Rate - Afr Amer 90 mL/min (>60); Estimated Creatinine Clearance 71.65 ml/min; Glucose 302 mg/dL (74-106); Potassium 3.8 mmol/L (3.5-5.1); Sodium Level 138 mmol/L (136-145)
[2018-08-23] MEDS: Insulin Lispro 100 UNIT/ML INSULN.PEN SC ×3 (06:58→23:05)
--- NOTE | 2018-08-23 07:01 | CON.PCM_ITS ---
Reason for Consult Date of Consultation: 08/23/18 Reason for Consultation: diabetic foot infection, left foot History of Present Illness: The patient is a 53 year old F with diabetic foot infection of left foot. She has ulceration of b/l foot for greater than 2 weeks. she initially tried to treat herself. when her foot was not responding to her care, she presented to the emergency room last at which time she was prescribed doxycycline. She was seen by me on Tuesday last week and we placed in her b/l boots with peg assisted offloading. wound culture was performed and culture grew out group b strep and staph aureus sensitive to doxycycline. she presented to my clinic yesterday. her right foot has improved but her left foot was more swollen and painful with drainage present. patient states she has not eaten any food in two days. patient was subsequently admitted to hospital and mri was performed last night. patient is diabetic x many years. she is very noncompliant with her diabetic management. she has not seen her pcp in over one year so she has not been able to get diabetic shoes that were ordered. She reports to walking barefoot at home and very rarely uses her diabetic shoes while in the house. She has been informed that these wounds do place her at risk of losing her leg but she does not wish to accept this. Past Medical History Past Medical History (Chronic Problems): Chronic Problems Back pain, chronic (Chronic) Hyponatremia (Chronic) Depression (Chronic) Diabetic foot ulcer associated with type 2 diabetes mellitus (Chronic) RLS (restless legs syndrome) (Chronic) Type II diabetes mellitus, uncontrolled (Chronic) Anxiety state (Chronic) Allergies oxycodone [Oxycodone] Allergy (Verified 08/17/18 14:04) Rash oxycodone HCl [From OxyContin] Allergy (Verified 08/17/18 14:04) Rash Penicillins Allergy (Verified 08/17/18 14:04) Shortness of breath Home Medications: Ambulatory Orders Medication Instructions Recorded Insulin Detemir [Levemir FlexPen] 30 units SC BREAKFAST 01/13/14 Ropinirole HCl [Requip] 3 mg PO BID 01/13/14 Insulin Aspart [Novolog Flexpen] 15 units SC TIDCM 01/27/15 Doxycycline Monohydrate 100 mg PO BID #20 capsule 08/17/18 Alpha Lipoic Acid 600 mg PO DAILY 08/22/18 Ascorbic Acid 500 mg PO BID 08/22/18 Collagenase [Santyl] 1 applicatio TOPICAL DAILY 08/22/18 Ergocalciferol [Vitamin D] 50,000 unit PO GRAY 08/22/18 Gabapentin [Neurontin] 800 mg PO TID 08/22/18 Hydrocodone/Acetaminophen 1 tab PO Q4H PRN 08/22/18 [Hydrocodone-Acetamin 5-325 mg] Magnesium Oxide [Magnesium] 400 mg PO BID 08/22/18 Omeprazole [Prilosec] 20 mg PO DAILY 08/22/18 Rosuvastatin Calcium [Crestor] 40 mg PO DAILY 08/22/18 Surgical History: - - status post I&D of R foot 5th metatarsal abscess, 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 Bilateral carpal tunnel surgery 1994, right shoulder surgery in 1994, section x2. 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 She had had multiple strokes preceding that. Paternal History Items: - - Patient states her father when she was 5 years old, denies known medical history, denies known cardiac history. Sibling History Items: - - She has one brother who is secondary to cancer and she does not know what kind of cancer he had. She also has 3 brothers with a history of cardiovascular disease, stents and coronary artery bypass grafting. Objective: patient is alert and orientated x 3. no acute distress Vascular: DP and PT pulses are palpable b/l. cft is less than 5 seconds. skin temperature is warm to warm. no erythema is noted to b/l lower extremity. Derm: there is full thickness ulceration to plantar left 5th metatarsal base. ulceration is approximately 6 mm in diameter. it has lateral extension along the lateral arch with evidence of bullae. there is serous sanginous drainage present. no foul odor present. The right foot has very superficial ulceration, about 5 mm with no signs of infection. M/s: charcot changes are noted b/l with prominent 5th metatarsal base. no calf pain present to b/l lower extremity. - Physical Exam Vital Signs Temp Pulse Resp BP Pulse Ox 98.2 F 77 16 100/61 94 08/23/18 03:00 08/23/18 03:59 08/23/18 03:00 08/23/18 03:00 08/23/18 03:00 Oxygen Delivery Method Room Air Weight: 80.649 kg Body Mass Index (BMI) 28.7 Intake and Output for Last 24 Hours 08/21/18 08/22/18 08/23/18 23:59 23:59 23:59 Intake Total 1171 / 1171 737 / 737 Output Total 250 / 250 Balance 921 / 921 737 / 737 Laboratory Tests Past 24 Hrs 08/22/18 08/22/18 08/22/18 16:15 16:50 16:50 WBC RBC Hgb Hct MCV MCH MCHC RDW RDW Differential Plt Count MPV Immature Gran % (Auto) Neut % (Auto) Lymph % (Auto) [place] % (Auto) Eos % (Auto) Baso % (Auto) Absolute Neuts (auto) Absolute Lymphs (auto) Total Counted ESR PT INR Sodium 136 Potassium 4.0 Chloride 101 Carbon Dioxide 25.0 Anion Gap 10 BUN 17 Creatinine 0.96 Estim Creat Clear Calc 63.44 Est GFR (MDRD) Af Amer 78 Est GFR (MDRD) Non-Af 65 BUN/Creatinine Ratio 17.7 Glucose 353 H Hemoglobin A1c 12.0 H Calcium 8.9 Total Bilirubin 0.40 AST 6 L ALT 16 Alkaline Phosphatase 111 C-React Prot Ext Range Total Protein 7.7 Albumin 3.0 L Globulin 4.7 H Albumin/Globulin Ratio 0.6 L S.aureus Protein A PCR POSITIVE H MRSA (PCR) Negative 08/22/18 08/22/18 08/22/18 16:50 16:50 16:50 WBC RBC Hgb Hct MCV MCH MCHC RDW RDW Differential Plt Count MPV Immature Gran % (Auto) Neut % (Auto) Lymph % (Auto) [place] % (Auto) Eos % (Auto) Baso % (Auto) Absolute Neuts (auto) Absolute Lymphs (auto) Total Counted ESR 123 H PT 13.8 INR 1.1 Sodium Potassium Chloride Carbon Dioxide Anion Gap BUN Creatinine Estim Creat Clear Calc Est GFR (MDRD) Af Amer Est GFR (MDRD) Non-Af BUN/Creatinine Ratio Glucose Hemoglobin A1c Calcium Total Bilirubin AST ALT Alkaline Phosphatase C-React Prot Ext Range 115.00 H Total Protein Albumin Globulin Albumin/Globulin Ratio S.aureus Protein A PCR MRSA (PCR) 08/23/18 08/23/18 06:00 06:00 WBC 6.7 RBC 3.71 L Hgb 10.6 L Hct 32.6 L MCV 87.9 MCH 28.6 MCHC 32.5 RDW 13.5 RDW Differential 43.4 Plt Count 312 MPV 10.5 Immature Gran % (Auto) 0.100 Neut % (Auto) 67.7 Lymph % (Auto) 23.0 [place] % (Auto) 6.5 Eos % (Auto) 2.4 Baso % (Auto) 0.3 Absolute Neuts (auto) 4.6 Absolute Lymphs (auto) 1.55 Total Counted Not Reportable ESR PT INR Sodium 138 Potassium 3.8 Chloride 105 Carbon Dioxide 24.0 Anion Gap 9 BUN 15 Creatinine 0.85 Estim Creat Clear Calc 71.65 Est GFR (MDRD) Af Amer 90 Est GFR (MDRD) Non-Af 74 BUN/Creatinine Ratio 17.6 Glucose 302 H Hemoglobin A1c Calcium 8.5 Total Bilirubin AST ALT Alkaline Phosphatase C-React Prot Ext Range 100.00 H Total Protein Albumin Globulin Albumin/Globulin Ratio S.aureus Protein A PCR MRSA (PCR) POC Glucose 08/23/18 08/22/18 08/22/18 00:24 21:57 16:23 POC Glucose 264 H 326 H 383 H Assessment/Plan All Active Problems Hepatitis B (Resolved) 1. diabetic foot infection Discussed diabetic foot infection at great detail. This patient is unfortunately very noncompliant. she has history of ulceration of b/l feet and in the past, she has never taken them serious. She has always accepted that she has healed in past so she is inclined to feel that she can heal any ulceration. she has been ordered diabetic shoes and afo but has yet to get these as she has not been seen by her pcp. Her a1c recently was tested at psychiatric and is greater than 12.8. this patient is very noncompliant and is certainly at risk of amputation. I feel she is finally taking her foot issues serious. on exam, she does have serous sanginous discharge to left foot ulceration. This ulceration would benefit from surgical debridement. Further, there appears to be lateral extension of her plantar foot ulceration that communicates with ulceration. this too will need to be debrided. I informed patient the etiology of these ulcerations are likely the underlying hypertrophic bone of 5th metatarsal base. I have discussed I&D with possible bone resection. If bone is infected, patient would benefit from ray resection. I informed patient risk of developing equinovarus deformity if entire ray is removed. she does not wish to proceed with any bone resection if no infection present in bone. Despite telling her that this bone will likely be source of further ulceration/infection, she does not wish to proceed with bone resection. she would only consent to I&D with possible wound vac application if bone is not infected. Will await MRI results. will plan for some form of surgical debridement this evening. will keep patient npo. 2. right foot ulceration. continue with silvercel and peg assisted offloading boot while ambulator. 3. Diabetes: patient would greatly benefit from nutrition consult/diabetic management. patient is very poorlyl controlled diabetic with noncompliance
[2018-08-23 07:05] LABS: Bedside Glucose 386 mg/dL (70-110)
--- NOTE | 2018-08-23 08:09 | NURSING ---
Was consulted for left foot diabetic ulcer. pt is scheduled for surgery with Dr Allen today who was already in to see patient and changed dressing according to KELSIE Nair. will follow as needed post op.
[2018-08-23] MEDS: Vancomycin IV 1,000 MG/200 ML BAG 200 MG IV (08:26)
[2018-08-23] MEDS: Ascorbic Acid 500 MG Tablet PO ×2 (10:02→23:06)
[2018-08-23] MEDS: Pantoprazole Sodium 20 MG Tablet PO (10:02)
--- NOTE | 2018-08-23 11:04 | PCM.PROGNOTE ---
Subjective: Patient seen and examined. Left foot pain improved. Denies fever, chills. Denies nausea, vomiting. Complains of headache which she states is been ongoing for 3 days. No other complaints. - Physical Exam General: Alert, Oriented x3, Cooperative, No apparent distress HEENT: Atraumatic, PERRLA, EOMI, Normocephalic Neck: Supple, No JVD, Negative Carotid Bruits Lungs: Clear to auscultation, Normal air movement Cardiovascular: Regular rate, Regular Rhythm, Normal S1, Normal S2, No murmurs Abdomen: Bowel Sounds Present, Soft, Non Tender, Non-Distended Extremities: No clubbing, No cyanosis, No edema, Capillary Refill Less than 3 Seconds Skin: - - Diabetic ulcer bilateral lateral plantar aspect of feet. Left foot with mild serosanguineous drainage. No foul odor. Left foot generalized erythema and warmth. Musculoskeletal: No Tenderness to Palpation of Joints or Extremities Neurological: Cranial nerves II-XII grossly intact, Neuro grossly intact Psych/Mental Status: Normal Affect, Appropriate Vital Signs Temp Pulse Resp BP Pulse Ox 98 F 82 16 111/58 L 97 08/23/18 09:41 08/23/18 09:41 08/23/18 09:41 08/23/18 09:41 08/23/18 09:41 Oxygen Delivery Method Room Air Weight: 177 lb 12.8 oz Body Mass Index (BMI) 28.7 Intake and Output for Last 24 Hours 08/21/18 08/22/18 08/23/18 23:59 23:59 23:59 Intake Total 1171 / 1171 737 / 737 Output Total 250 / 250 Balance 921 / 921 737 / 737 Microbiology Past 72 Hours 08/22/18 16:15 Gram Stain - Final Wound Abcess - Left Foot Wound Culture - Preliminary Gram positive organism Laboratory Tests Past 24 Hrs 08/22/18 08/22/18 08/22/18 16:15 16:50 16:50 WBC RBC Hgb Hct MCV MCH MCHC RDW RDW Differential Plt Count MPV Immature Gran % (Auto) Neut % (Auto) Lymph % (Auto) [place] % (Auto) Eos % (Auto) Baso % (Auto) Absolute Neuts (auto) Absolute Lymphs (auto) Total Counted ESR PT INR Sodium 136 Potassium 4.0 Chloride 101 Carbon Dioxide 25.0 Anion Gap 10 BUN 17 Creatinine 0.96 Estim Creat Clear Calc 63.44 Est GFR (MDRD) Af Amer 78 Est GFR (MDRD) Non-Af 65 BUN/Creatinine Ratio 17.7 Glucose 353 H Hemoglobin A1c 12.0 H Calcium 8.9 Total Bilirubin 0.40 AST 6 L ALT 16 Alkaline Phosphatase 111 C-React Prot Ext Range Total Protein 7.7 Albumin 3.0 L Globulin 4.7 H Albumin/Globulin Ratio 0.6 L S.aureus Protein A PCR POSITIVE H MRSA (PCR) Negative 08/22/18 08/22/18 08/22/18 16:50 16:50 16:50 WBC RBC Hgb Hct MCV MCH MCHC RDW RDW Differential Plt Count MPV Immature Gran % (Auto) Neut % (Auto) Lymph % (Auto) [place] % (Auto) Eos % (Auto) Baso % (Auto) Absolute Neuts (auto) Absolute Lymphs (auto) Total Counted ESR 123 H PT 13.8 INR 1.1 Sodium Potassium Chloride Carbon Dioxide Anion Gap BUN Creatinine Estim Creat Clear Calc Est GFR (MDRD) Af Amer Est GFR (MDRD) Non-Af BUN/Creatinine Ratio Glucose Hemoglobin A1c Calcium Total Bilirubin AST ALT Alkaline Phosphatase C-React Prot Ext Range 115.00 H Total Protein Albumin Globulin Albumin/Globulin Ratio S.aureus Protein A PCR MRSA (PCR) 08/23/18 08/23/18 06:00 06:00 WBC 6.7 RBC 3.71 L Hgb 10.6 L Hct 32.6 L MCV 87.9 MCH 28.6 MCHC 32.5 RDW 13.5 RDW Differential 43.4 Plt Count 312 MPV 10.5 Immature Gran % (Auto) 0.100 Neut % (Auto) 67.7 Lymph % (Auto) 23.0 [place] % (Auto) 6.5 Eos % (Auto) 2.4 Baso % (Auto) 0.3 Absolute Neuts (auto) 4.6 Absolute Lymphs (auto) 1.55 Total Counted Not Reportable ESR PT INR Sodium 138 Potassium 3.8 Chloride 105 Carbon Dioxide 24.0 Anion Gap 9 BUN 15 Creatinine 0.85 Estim Creat Clear Calc 71.65 Est GFR (MDRD) Af Amer 90 Est GFR (MDRD) Non-Af 74 BUN/Creatinine Ratio 17.6 Glucose 302 H Hemoglobin A1c Calcium 8.5 Total Bilirubin AST ALT Alkaline Phosphatase C-React Prot Ext Range 100.00 H Total Protein Albumin Globulin Albumin/Globulin Ratio S.aureus Protein A PCR MRSA (PCR) POC Glucose 08/23/18 08/23/18 08/22/18 06:55 00:24 21:57 POC Glucose 386 H 264 H 326 H 08/22/18 16:23 POC Glucose 383 H Medical Necessity - Tobacco Use Smoking Status: Never smoker Assessment/Plan All Active Problems Hepatitis B (Resolved) 1. Left foot diabetic ulcer with cellulitis-Failed outpatient antibiotic therapy with doxy. Following with podiatry, Dr. Allen. X-ray of the right foot 08/17/18 shows status post amputation of the mid and distal portion of the fifth metatarsal and fifth toe. Irregular density of the distal row of the tarsal joints as well as a tarsal metatarsal joint suggestive of charcot's deformity. ID consulted. MRI LLE without abscess or osteomyelitis. Wound cx 08/17/18 positive for group B strep. Wound culture on admission showing preliminary gram positive organism. IV flagyl, IV levaquin and IV vancomycin. oxyir PRN for pain. PT/OT. Wound RN consult. Plan for surgical debridement by podiatry this evening. Patient has chronic right diabetic foot ulceration as well, does not appear infected. Continue silvecel, kerlex, offloading boot. 2. Type 2 diabetes mellitus, poorly controlled, associated diabetic neuropathy-Hemoglobin A1c 12%. Accu-Cheks before meals at bedtime with sliding scale insulin. Continue scheduled Humalog 15 units 3 times daily. Home Levemir regimen increased to 20 units twice daily. Nutrition consult for diabetes education. 3. Chronic back pain-PT/OT. PRN pain regimen. Continue gabapentin regimen. 4. Restless leg syndrome-continue Requip regimen. 5. Hyperlipidemia-continue statin. 6. Depression/anxiety-no longer on regimen. DVT prophylaxis- SCDs. Can begin pharmacologic prophylaxis following surgery when okay per podiatry. This patient was seen by BRIAN Mathews under the supervision of Dr. Perez.
[2018-08-23] MEDS: levoFLOXacin IV 750 MG/150 ML BAG 100 MG IV (11:23)
[2018-08-23] MEDS: 0.9% Normal Saline 1,000 ML 100 ML IV (11:23)
[2018-08-23] MEDS: Insulin Lispro 100 UNIT/ML INSULN.PEN 15 UNIT SC (11:25)
[2018-08-23 11:35] LABS: Bedside Glucose 470 mg/dL (70-110)
--- NOTE | 2018-08-23 12:05 | CASEMGMT ---
RN CM Face to Face with patient for initial transition planning/care coordination assessment. RN CM introduced self and role at [facility]. Patient lying in bed, alert and oriented. Patient willing to participate in assessment and is able to answer all questions appropriately. Care providers, pharmacy, and demographics verified. Patient wishes to discharge home with HHC if needed, agreeable to [facility]. Per Patient, Dr. Allen's office call [facility] on Tuesday to arrange for HHC and no one had called her. Patient states that she has no reliable support at home or anyone that could help with dressing changes or IV ATB if needed. Patient states she is not sure if she would go to SNF because she has a dog to take care of and no one to help. Patient states that she frequently misses doctor appointment because she cannot get a ride. 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 States that daughter is available sometimes, also has a son but his car is broken. Patient states she has no further needs or concerns at this time. Referral made to LUCRETIA Tobar for transportation resources and information regarding Directions Home for assistance. CM to follow for discharge planning needs that may arise. PCP: Jeaneth Specialists: Alejandro parimutuel ticket checker Preferred Pharmacy: [facility] Insurance: DANIEL BRAMBILA Prescription Benefit: Yes Living Will/HPOA: None, declined additional information LNOK: Daughter and Son Living Arrangements: Patient lives alone in 1 story house with 2 steps to enter home. Patient states she will not be able to get into house with her foot ulcers. Transportation: Daughter not reliable all the time. LUCRETIA to give resources. DME/HHC: Patient has BSC, walker, and wheelchair at home. Also has glucometer to test BS but is out of strips due to she cannot get to pharmacy. Disposition Plan: HHC vs SNF. TBD by coarse of treatment and needs at discharge. Erika MANLEY, RN, CM
--- NOTE | 2018-08-23 12:32 | CON.PCM_ITS ---
Problem List (1) Diabetic foot ulcer associated with type 2 diabetes mellitus Status: Chronic Reason for Consult: foot infection Consulted by: Dr. Allen History of Present Illness: The patient is a 53 year old F with uncontrolled T2DM with peripheral neuropathy and recurrent foot ulcers who presented with L foot infected ulcer for about 2 weeks. L lateral foot with no trauma but ulcer with brown foul smelling drainage and pain. No fever or chills. Started on doxy a few days ago with no improvement. Some nausea. Came to hospital, MRI done, started on vanc, levaquin, flagyl. Surgery planned for today. Full ROS performed and neg except as noted above. - Medical History Past Medical History (Chronic Problems): Chronic Problems Back pain, chronic (Chronic) Hyponatremia (Chronic) Depression (Chronic) Diabetic foot ulcer associated with type 2 diabetes mellitus (Chronic) RLS (restless legs syndrome) (Chronic) Type II diabetes mellitus, uncontrolled (Chronic) Anxiety state (Chronic) Allergies/Adverse Reactions: Allergies oxycodone [Oxycodone] Allergy (Verified 08/17/18 14:04) Rash oxycodone HCl [From OxyContin] Allergy (Verified 08/17/18 14:04) Rash Penicillins Allergy (Verified 08/17/18 14:04) Shortness of breath Home Medications: Ambulatory Orders Medication Instructions Recorded Insulin Detemir [Levemir FlexPen] 30 units SC BREAKFAST 01/13/14 Ropinirole HCl [Requip] 3 mg PO BID 01/13/14 Insulin Aspart [Novolog Flexpen] 15 units SC TIDCM 01/27/15 Doxycycline Monohydrate 100 mg PO BID #20 capsule 08/17/18 Alpha Lipoic Acid 600 mg PO DAILY 08/22/18 Ascorbic Acid 500 mg PO BID 08/22/18 Collagenase [Santyl] 1 applicatio TOPICAL DAILY 08/22/18 Ergocalciferol [Vitamin D] 50,000 unit PO GRAY 08/22/18 Gabapentin [Neurontin] 800 mg PO TID 08/22/18 Hydrocodone/Acetaminophen 1 tab PO Q4H PRN 08/22/18 [Hydrocodone-Acetamin 5-325 mg] Magnesium Oxide [Magnesium] 400 mg PO BID 08/22/18 Omeprazole [Prilosec] 20 mg PO DAILY 08/22/18 Rosuvastatin Calcium [Crestor] 40 mg PO DAILY 08/22/18 - Social History SMOKING STATUS:: Never smoker Vital Signs Temp Pulse Resp BP Pulse Ox 98 F 82 16 111/58 L 97 08/23/18 09:41 08/23/18 09:41 08/23/18 09:41 08/23/18 09:41 08/23/18 09:41 Oxygen Delivery Method Room Air Weight: 80.649 kg Body Mass Index (BMI) 28.7 Microbiology Past 72 Hours 08/22/18 16:15 Gram Stain - Final Wound Abcess - Left Foot Wound Culture - Preliminary Gram positive organism Laboratory Tests Past 24 Hrs 08/22/18 08/22/18 08/22/18 16:15 16:50 16:50 WBC RBC Hgb Hct MCV MCH MCHC RDW RDW Differential Plt Count MPV Immature Gran % (Auto) Neut % (Auto) Lymph % (Auto) [place] % (Auto) Eos % (Auto) Baso % (Auto) Absolute Neuts (auto) Absolute Lymphs (auto) Total Counted ESR PT INR Sodium 136 Potassium 4.0 Chloride 101 Carbon Dioxide 25.0 Anion Gap 10 BUN 17 Creatinine 0.96 Estim Creat Clear Calc 63.44 Est GFR (MDRD) Af Amer 78 Est GFR (MDRD) Non-Af 65 BUN/Creatinine Ratio 17.7 Glucose 353 H Hemoglobin A1c 12.0 H Calcium 8.9 Total Bilirubin 0.40 AST 6 L ALT 16 Alkaline Phosphatase 111 C-React Prot Ext Range Total Protein 7.7 Albumin 3.0 L Globulin 4.7 H Albumin/Globulin Ratio 0.6 L S.aureus Protein A PCR POSITIVE H MRSA (PCR) Negative 08/22/18 08/22/18 08/22/18 16:50 16:50 16:50 WBC RBC Hgb Hct MCV MCH MCHC RDW RDW Differential Plt Count MPV Immature Gran % (Auto) Neut % (Auto) Lymph % (Auto) [place] % (Auto) Eos % (Auto) Baso % (Auto) Absolute Neuts (auto) Absolute Lymphs (auto) Total Counted ESR 123 H PT 13.8 INR 1.1 Sodium Potassium Chloride Carbon Dioxide Anion Gap BUN Creatinine Estim Creat Clear Calc Est GFR (MDRD) Af Amer Est GFR (MDRD) Non-Af BUN/Creatinine Ratio Glucose Hemoglobin A1c Calcium Total Bilirubin AST ALT Alkaline Phosphatase C-React Prot Ext Range 115.00 H Total Protein Albumin Globulin Albumin/Globulin Ratio S.aureus Protein A PCR MRSA (PCR) 08/23/18 08/23/18 06:00 06:00 WBC 6.7 RBC 3.71 L Hgb 10.6 L Hct 32.6 L MCV 87.9 MCH 28.6 MCHC 32.5 RDW 13.5 RDW Differential 43.4 Plt Count 312 MPV 10.5 Immature Gran % (Auto) 0.100 Neut % (Auto) 67.7 Lymph % (Auto) 23.0 [place] % (Auto) 6.5 Eos % (Auto) 2.4 Baso % (Auto) 0.3 Absolute Neuts (auto) 4.6 Absolute Lymphs (auto) 1.55 Total Counted Not Reportable ESR PT INR Sodium 138 Potassium 3.8 Chloride 105 Carbon Dioxide 24.0 Anion Gap 9 BUN 15 Creatinine 0.85 Estim Creat Clear Calc 71.65 Est GFR (MDRD) Af Amer 90 Est GFR (MDRD) Non-Af 74 BUN/Creatinine Ratio 17.6 Glucose 302 H Hemoglobin A1c Calcium 8.5 Total Bilirubin AST ALT Alkaline Phosphatase C-React Prot Ext Range 100.00 H Total Protein Albumin Globulin Albumin/Globulin Ratio S.aureus Protein A PCR MRSA (PCR) - Other Studies Radiology: [] reviewed Other Studies: [] Route of nutrition/ use of supplements: [] Nutritional Intake: [] IV Site: [] Tirado Catheter: [] - Physical Exam General: Alert, Oriented x3, Cooperative, No apparent distress HEENT: Atraumatic, PERRLA, EOMI Neck: Supple, No Nodes Lungs: Clear to auscultation, Normal air movement Cardiovascular: Regular rate, Regular Rhythm Abdomen: Soft, Non Tender, Non-Distended Extremities: No edema Skin: Ulcer/ Wound - feet wrapped IV Site: Peripheral, without redness Musculoskeletal: No Tenderness to Palpation of Joints or Extremities Neurological: Cranial nerves II-XII grossly intact, - - peripheral neuropathy - Assessment/Plan Antibiotics: [] Assessment/Plan: [] L foot infected ulcer with uncontrolled DM and neuropathy - recent cx with MSSA and GBS. Cx here with GPC so far. MRSA pcr neg. Will narrow abx to cefepime and flagyl. Has tolerated ceftriaxone in our system in the past. OR today for debridement. No osteo seen on MRI. Will follow, thank you, d/w Dr. Allen.
[2018-08-23] MEDS: 0.9% NaCl Peripheral Flush Adult/Peds IV (12:43)
[2018-08-23] MEDS: Ketorolac 15 MG/ML Vial IV (12:43)
--- NOTE | 2018-08-23 14:10 | RAD_ITS ---
STUDY: X-RAY - LEFT FOOT CLINICAL: Female, 53 years old. Drainage abscess TECHNIQUE: 4 view(s) of the foot. COMPARISON: None. FINDINGS: 4 images were submitted, as radiology support for c-arm imaging in the operating room. This is not a diagnostic examination. Images for documentation purposes only. Fluoroscopy time if reported: 7 seconds RAD/Foot 2 Views IMPRESSION: Intraoperative fluoroscopic image guidance. Electronically Signed: Carmelita Bettencourt MD at 2:52 EST , Service support ,
[2018-08-23 14:55] LABS: Bedside Glucose 74 mg/dL (70-110)
--- NOTE | 2018-08-23 14:58 | CASEMGMT ---
Social Work Note SW received referral from RN BEKA Lundy regarding transportation resources and [facility] [place] resources. LUCRETIA met with pt. SW introduced self and role at [facility]. SW educated pt on transportation resources in [facility] and [facility]. SW encouraged pt to follow up with transportation services in [facility] and to make an appointment with [facility] at discharge to see about programs that she may qualify for. SW asked pt about support. Pt states that she has a daughter who she has a good relationship with but states that her daughter is busy. Pt states that she has a cousin but her cousin has to take care of her mother and son and often busy as well. Pt states that she has a who lives in [place]. Pt states that her was born in [place] and they have been for two years. Pt states that she has visited her and that her is trying to get his Visa approved to move to the [place]. Pt state that her and her are able to talk daily. Pt states that her is good emotional support for her. SW asked pt if she had any issues or concerns at this time. Pt denied. Pt states she will just need HHC set up at discharge. SW explained that HHC will only be out a few times a week. Pt states understanding. Plan: HHC vs. SNF Erika Tobar STITCH BONDER MACHINE OPERATOR HELPER, WARPER FIXER
[2018-08-23 15:15] LABS: Bedside Glucose 145 mg/dL (70-110)
--- NOTE | 2018-08-23 15:51 | NURSING ---
PT GIVEN [place] BATH BY STAFF WHEN SHE CALLED OUT STATING THAT SHE FEELS WEAK AND DIAPHORETIC. PT IS ALERT AND RESPONSIVE. BLOOD SUGAR RETAKEN AND WNL AND VS ALSO. PT QUESTIONS IF HER BLOOD SUGAR IS LOW AT 147 BECAUSE SHE HAS NOT EATEN. PT HAS HAD UNCONTROLLED BLOOD SUGARS WHERE 360'S WERE NORMAL FOR HER. EDUCATION PROVIDED THAT HER BODY IS ADJUSTING TO BLOOD SUGARS BEING THERAPEUTIC. REPORT CALLED TO AC AND PT IS TRANSPORTED DOWN.
[2018-08-23 15:56] LABS: Bedside Glucose 55 mg/dL (70-110)
--- NOTE | 2018-08-23 16:07 | EKG12_ITS ---
Test Reason : CP Blood Pressure : / mmHG Vent. Rate : 067 BPM Atrial Rate : 067 BPM P-R Int : 162 ms QRS Dur : 094 ms QT Int : 454 ms P-R-T Axes : 042 015 -06 degrees QTc Int : 479 ms Normal sinus rhythm Nonspecific T wave abnormality Prolonged QT Abnormal ECG When compared with ECG of 10-MAY-2018 05:09, No significant change was found Confirmed by OTTO DELVALLE, DOMINIQUE ([id number]), newspaper copy editor MARLON GALEANA ([id number]) on 08/28/2018 1:54:48 PM Referred By: Annie Duran Confirmed By:DOMINIQUE MENJIVAR MD
[2018-08-23 16:31] LABS: Bedside Glucose 211 mg/dL (70-110)
--- NOTE | 2018-08-23 18:20 | PCM.IMDPSTOP ---
Immediate Post-Op Note Date of Procedure: 08/23/18 Primary Surgeon/Physician: Landen Allen DPM green building design specialist: None Pre-Operative Diagnosis: diabetic foot ulceration with infection, left foot Post-Operative Diagnosis: diabetic foot ulceration with infection Surgery/Procedure Performed:: Incision and drainage of left foot with bone biopsy of 5th metatarsal Description of Surgical Findings:: very bad ulceration of left foot with considerable undermining, nonviable tissue. ulceration measures 3.5 cm x 2.5 cm x 1.0 cm depth following debridement. Estimated Blood Loss: 50 cc Specimen's removed: left 5th metatarsal for pathology and micro Type of Anesthesia:: Local MAC ASA Class: ASA3 Severe Disease
[2018-08-23 18:41] LABS: Bedside Glucose 256 mg/dL (70-110)
--- NOTE | 2018-08-23 20:56 | OP.PCM_ITS ---
Report of Operation Date of Procedure: 08/23/18 Pre-Operative Diagnosis: diabetic foot ulceration with infection, left foot Post-Operative Diagnosis: diabetic foot ulceration with infection Surgery/Procedure Performed:: Incision and drainage of left foot with bone biopsy of 5th metatarsal Description of Surgical Findings:: very bad ulceration of left foot with considerable undermining, nonviable tissue. ulceration measures 3.5 cm x 2.5 cm x 1.0 cm depth following debridement. director chemistry: None Type of Anesthesia:: Local MAC Specimen's removed: left 5th metatarsal for pathology and micro Estimated Blood Loss (mL): 50 cc Description of Procedure: Patient is a noncompliant 53 year old female with poorly controlled diabetes. She developed ulceration to b/l 5th metatarsal approximately 2 weeks ago. She initially tried to treat herself but failed to achieve any improvement. she presented to the [facility] room last and was placed on doxycycline. She was seen by me the following day at which time the ulceration appeared stable. A wound culture was performed and grew out mssa and group b Strep. I attempted to contact patient over weekend regarding culture but her voice mail was not activated and I was unable to get in touch with this patient. She was treated with peg assisted offloading boot. her right foot ulceration has slowly progressed but over the past few days, her left foot ulceration was worsening and there has been drainage present. she presented to my clinic yeste and was found to have draining foot wound of left lower extremity. she was admitted to the hospital and further work-up of left foot ulceration was performed. MRI of the left foot was performed. the mri was concerning for cellulitis but no evidence of osteomyelitis or abscess was noted. ESR and CRP were both elevated. WBC was normal. On exam, patient has full thickness ulceration of left plantar foot just distal to remaining 5t metatarsal base. there appears to be lateral extension of this ulceration. I have proposed to patient incision and drainage of left foot ulceration, debridement of nonviable tissue and likely wound vac application. I have suggested to patient partial 5t ray resection of remaining base of left foot. certainly any complete resection of left 5th metatarsal base could result in equinovarus. I do believe that partial 5th ray resection of remaining bone may be of benefit to heal this ulceration. I have offered and recommended resection of bone but patient is not willing to consent to this at this time. I have informed patient that it is very well possible that this may be required in the future. she understands this but she is not willing to consent to this. she is however willing to consent to I&D of left foot, debridement of ulceration and bone biopsy of 5th metatarsal. I have discussed risks of this procedure. patient now fully understands the severity of this ulceration, this being potential for below knee amputation. she also understands the likely need for post-op wound vac and possible iv antibiotics. patient fully understands that even with devoted efforts to saving this foot, she is at risk of below knee amputation. other risks include hematoma, sepsis, . patient consents to proceed with I&D, debridement with bone biopsy. It should be noted that this patient is very poorly controlled diabetic and noncompliant. She admits that prior to seeing me yesterday, she is often times walking barefoot. Her diet is poorly controlled and consists of soda, candy, pizza, chips. Her a1c was greater than 12.0 and her sugars have been in high 300-400s this past several weeks. patient informed that sugars this high are prone to slow to nonhealing. patient understands this. Patient was seen by anesthesia department prior to surgery and found to be stable for mac anesthesia. She was transferred to operating room and placed on operating room table in supine position. she was administered mac anesthesia. the left foot was prepped and draped in usual aseptic technique. 4 cc of lidocaine plain was used but patient has no feeling in her left foot. timeout was performed making note of procedure. Attention was then directed to the left foot ulceration. the ulceration was found to be approximately 6 mm in diameter but presents with significant fibrin slough and serous/sanginous drainage. Full thickness debridement thru the subcutaneous tissue was performed. there was lateral extension with undermining of the left foot ulceration. It was determined given the presence of undermining and drainage that this tissue was nonviable. using 15 blade and forceps, the skin extending to ulceration was d ebrided. a full thickness debridement was performed. manipulation/compression of foot was performed and there was purulent drainage with undermining distal and proximal to ulceration. the ulceration was incised both proximally and distally. all remaining purulence was evacuated. following debridement, there was wound that measured 3.5 cm x 2.5 cm x 1.0 cm depth. this wound was to level of plantar periosteum. no bone was visible. pulse lavage was performed with 5000 cc of normal saline. Next, using clean instrumentation, a percutaneous biopsy of 5th metatarsal was performed. The biopsy was performed thru a separate dorsal incision to avoid contamination from ulceration. the bone was found to be firm on biopsy. xray confirmed placement of biopsy. two samples were obtained. one was sent for pathology and the other was sent for micro. hemostasis was achieved with cautery. a post-op dressing was applied consisting of guaze, alison, abd, brando. patient was awakened and found to be in stable condition. She was transferred to pacu in stable condition. I will consult wound nurse to apply wound vac on post-op day #1. she will require wound vac at discharge I recommend patient to go to rehab. I think rehab is best for this patient to stay off her foot. she needs to be total nwb to left foot with wound vac and can be partial weightbearing to right heel with peg assisted offloading boot. she will require silvercel to right foot ulceration and boot. she will require wound vac to left foot. will await culture results. if bone is infected, further ray resection vs bka may be necessary
[2018-08-23 22:29] LABS: Hematocrit 31.8 % (37-47); Hemoglobin 10.2 g/dl (12.0-15.0)
[2018-08-23] MEDS: Pramipexole Di-HCl 0.5 MG Tablet 1.5 MG PO (22:57)
[2018-08-23] MEDS: Atorvastatin Calcium 80 MG Tablet PO (23:04)
[2018-08-23] MEDS: metroNIDAZOLE 500 MG Tablet PO (23:06)
[2018-08-23 23:11] LABS: Bedside Glucose 368 mg/dL (70-110)
[2018-08-24] VITALS (7 sets, daily range): BP systolic 103–157; BP diastolic 61–79; PULSE 73–86; RESP 16–18; TEMP 36.6–36.9; O2SAT 93–99
[2018-08-24] MEDS: 0.9% NaCl Peripheral Flush Adult/Peds IV ×2 (00:59→05:36)
[2018-08-24] MEDS: HYDROcodone Bitartrate/Apap 5/325 Tablet PO ×4 (02:49→22:50)
[2018-08-24] MEDS: Gabapentin 800 MG Tablet PO ×3 (05:36→21:40)
[2018-08-24] MEDS: metroNIDAZOLE 500 MG Tablet PO ×3 (05:36→21:40)
[2018-08-24] MEDS: Acetaminophen 325 MG Tablet 650 MG PO (05:42)
--- NOTE | 2018-08-24 05:45 | NURSING ---
instructed pt to leave dressing, foam boot & scd on her right foot as she has removed them. pt states she needs a break from them at this time.
--- NOTE | 2018-08-24 07:01 | PCM.PN.SRG ---
Subjective: patient seen at bedside this morning. patient is s/p debridement of left foot ulceration. patient denies n/v/f/c. patient does complain of pain to left foot. Objective: patient is alert and orientated x 3. Vascular: DP and PT pulses are palpable to b/l lower extremity. no edema is noted b/l. no erythema is present. Derm: there is full thickness wound to left foot. wound has mostly granular base. no purulence noted. no erythema is noted. wound to left foot measures 3.5 cm x 2.5 cm x 1.0 cm. there is periosteum present in wound bed. there is ulceration to right foot that appears stable with vinicius-wound hyperkeratosis. no local signs of infection present. no exposed tendon, capsule or bone. ulceration of right foot measures 6 mm in diameter. m/s: no calf pain present b/l. - Physical Exam Vital Signs Temp Pulse Resp BP Pulse Ox 98.2 F 73 18 103/61 96 08/24/18 02:40 08/24/18 02:40 08/24/18 02:40 08/24/18 02:40 08/24/18 02:40 Oxygen Flow Rate (L/min) 1 Oxygen Delivery Method Room Air Weight: 80.65 kg Body Mass Index (BMI) 28.7 Intake and Output for Last 24 Hours 08/22/18 08/23/18 08/24/18 23:59 23:59 23:59 Intake Total 1171 / 1171 3587 / 3587 1033 / 1033 Output Total 250 / 250 700 / 700 Balance 921 / 921 3587 / 3587 333 / 333 Microbiology Past 72 Hours 08/22/18 16:15 Gram Stain - Final Wound Abcess - Left Foot Wound Culture - Preliminary Gram positive organism Laboratory Tests Past 24 Hrs 08/23/18 22:20 Hgb 10.2 L Hct 31.8 L POC Glucose 08/23/18 08/23/18 08/23/18 23:01 18:34 16:23 POC Glucose 368 H 256 H 211 H 08/23/18 08/23/18 08/23/18 15:52 15:11 14:53 POC Glucose 55 L 145 H 74 08/23/18 08/23/18 11:21 06:55 POC Glucose 470 H* 386 H Medical Necessity - Tobacco Use Smoking Status: Never smoker Assessment/Plan All Active Problems Hepatitis B (Resolved) patient was examined and informed of current findings. right foot ulceration is stable. debridement of right foot ulceration was performed of all nonviable tissue with 15 blade. continue with silvercel and peg assisted offloading boot. continue with offloading heel boots while in bed. left foot ulceration s/p debridement yesterday. awaiting bone biopsy from pathology and micro. no evidence of purulence today. foot appears stable. will consult wound nurse to apply wound vac to left foot. patient will need wound vac for significant duration. informed patient that this ulceration will likely require 2 months or longer to achieve healing and given her history of noncompliance and poorly controlled diabetes, she could be at risk of longer period of healing time. I have discussed risk of below knee amputation. she finally understands that this is a real possibility. I do feel patient is best suited for rehab placement at discharge. plan is to await bone cultures. if bone cultures negative for osteomyelitis, she would like to try and see if this will heal without bone resection. she will need wound vac. I will discuss with Tiffany of wound care today regarding wound vac. she needs wound vac with either adaptic vs white foam as there is periosteum present in wound. will need wound vac changes every other day with pressure set at 125 mm hg. if bone cultures positive for osteomyelitis, patient still wishes to try and save this foot. she understands she is at risk of amputation.
[2018-08-24 07:15] LABS: Bedside Glucose 237 mg/dL (70-110)
[2018-08-24] MEDS: Insulin Lispro 100 UNIT/ML INSULN.PEN SC ×2 (07:56→22:33)
[2018-08-24] MEDS: Insulin Lispro 100 UNIT/ML INSULN.PEN 15 UNIT SC ×2 (07:56→12:36)
[2018-08-24 08:03] LABS: Hematocrit 29.7 % (37-47); Hemoglobin 9.7 g/dl (12.0-15.0); Mean Corp Hgb Conc 32.7 g/gl (32-36); Mean Corpuscular Hgb 28.8 pg (27.0-32.0); Mean Corpuscular Volume 88.1 fL (81-99); Mean Platelet Vol. 10.4 fl (6.2-12.0); Platelet Count 323 K/mm3 (150-450); RBC Distribution Width CV 12.9 % (11.6-14.6); RBC Distribution Width SD 40.2 fl (35.1-43.9); Red Blood Count 3.37 M/mm3 (4.2-5.4); White Blood Count 7.9 K/mm3 (4.4-11.0)
[2018-08-24 08:04] LABS: Scan Indicated on CBC? Y/N NO
[2018-08-24 08:35] LABS: Vancomycin, Trough Level 5.5 ug/mL (5.0-15.0)
[2018-08-24 08:36] LABS: Anion Gap 11 (5-15); BUN 15 mg/dL (7-18); BUN/Creat Ratio 15.5 RATIO (10-20); Chloride 107 mmol/L (98-107); Creatinine, Serum 0.97 mg/dL (0.55-1.02); EST Glomerular Filtration Rate 64 mL/min (>60); Est Glom Filt Rate - Afr Amer 77 mL/min (>60); Estimated Creatinine Clearance 62.79 ml/min; Glucose 200 mg/dL (74-106); Potassium 3.8 mmol/L (3.5-5.1); Sodium Level 142 mmol/L (136-145)
--- NOTE | 2018-08-24 09:46 | NURSING ---
wound photo: right foot
--- NOTE | 2018-08-24 09:46 | NURSING ---
wound photo: left foot
--- NOTE | 2018-08-24 10:20 | CASEMGMT ---
Social Work Note RN Tiffany updated this pt that pt is agreeable to SNF at discharge now. SW met with pt. Pt confirms that she is agreeable to SNF and would like [facility]. SW called Diya Hernandez, quality management, to send referral to [facility]. Plan: [facility] pending acceptance and pre-cert Erika Tobar AUTOMOTIVE SALES SPECIALIST, SENIOR SOFTWARE ANALYST
--- NOTE | 2018-08-24 10:28 | CASEMGMT ---
Per LUCRETIA James, referral needs faxed to [facility]. Voicemail left for Muna at [facility]. Referral faxed, confirmation received. Valencia Hernandez LPN Clinical Support
--- NOTE | 2018-08-24 10:40 | PCM.PN.ID ---
Subjective: Feeling better, pus drained from foot yesterday, no fever, no rash/itching with iv abx. - Physical Exam General: Alert, Cooperative, No apparent distress Lungs: Clear to auscultation, Normal air movement Cardiovascular: Regular rate, Regular Rhythm Abdomen: Soft, Non Tender, Non-Distended Skin: Incision - L foot wrapped Vital Signs Temp Pulse Resp BP Pulse Ox 98.4 F 75 16 121/66 H 93 08/24/18 07:42 08/24/18 07:42 08/24/18 07:42 08/24/18 07:42 08/24/18 07:42 Oxygen Flow Rate (L/min) 1 Oxygen Delivery Method Room Air Weight: 80.65 kg Body Mass Index (BMI) 28.7 Intake and Output for Last 24 Hours 08/22/18 08/23/18 08/24/18 23:59 23:59 23:59 Intake Total 1171 / 1171 3587 / 3587 1033 / 1033 Output Total 250 / 250 700 / 700 Balance 921 / 921 3587 / 3587 333 / 333 Microbiology Past 72 Hours 08/23/18 18:00 Gram Stain - Final Bone - Left Foot 08/22/18 16:15 Gram Stain - Final Wound Abcess - Left Foot Wound Culture - Preliminary Staphylococcus aureus Streptococcus group B Anaerobic Culture - Preliminary Checking for anaerobes, further studies to follow. Laboratory Tests Past 24 Hrs 08/23/18 08/24/18 08/24/18 22:20 07:52 07:52 WBC 7.9 RBC 3.37 L Hgb 10.2 L 9.7 L Hct 31.8 L 29.7 L MCV 88.1 MCH 28.8 MCHC 32.7 RDW 12.9 RDW Differential 40.2 Plt Count 323 MPV 10.4 Sodium Potassium Chloride Carbon Dioxide Anion Gap BUN Creatinine Estim Creat Clear Calc Est GFR (MDRD) Af Amer Est GFR (MDRD) Non-Af BUN/Creatinine Ratio Glucose Calcium Vancomycin Trough 5.5 08/24/18 07:52 WBC RBC Hgb Hct MCV MCH MCHC RDW RDW Differential Plt Count MPV Sodium 142 Potassium 3.8 Chloride 107 Carbon Dioxide 24.0 Anion Gap 11 BUN 15 Creatinine 0.97 Estim Creat Clear Calc 62.79 Est GFR (MDRD) Af Amer 77 Est GFR (MDRD) Non-Af 64 BUN/Creatinine Ratio 15.5 Glucose 200 H Calcium 8.0 L Vancomycin Trough POC Glucose 08/24/18 08/23/18 08/23/18 06:59 23:01 18:34 POC Glucose 237 H 368 H 256 H 08/23/18 08/23/18 08/23/18 16:23 15:52 15:11 POC Glucose 211 H 55 L 145 H 08/23/18 08/23/18 14:53 11:21 POC Glucose 74 470 H* Medical Necessity - Tobacco Use Smoking Status: Never smoker Route of nutrition/ use of supplements: [] Nutritional Intake: [] IV Site: [] Tirado Catheter: [] - Assessment/Plan Antibiotics: [] Assessment/Plan: [] L foot infected ulcer with uncontrolled DM and neuropathy - recent cx with MSSA and GBS. Cx here with same so far. MRSA pcr neg. Cont cefepime and flagyl. Taken to OR 08/[address] Allen with pus drained and bone bx sent. Will follow
[2018-08-24] MEDS: Pantoprazole Sodium 20 MG Tablet PO (10:58)
[2018-08-24] MEDS: Ascorbic Acid 500 MG Tablet PO ×2 (10:58→21:41)
[2018-08-24 11:16] LABS: Bedside Glucose 147 mg/dL (70-110)
--- NOTE | 2018-08-24 11:20 | CASEMGMT ---
Received call from Muna at [facility], inquiring if PT/OT notes available yet and whether patient will be discharged on any IV antibiotics. PT/OT notes faxed to Muna, confirmation received. Call placed to LUCRETIA Willett regarding IV antibiotics, Erika will follow up with physician. Valencia Hernandez LPN Clinical Support
--- NOTE | 2018-08-24 13:47 | PCM.PROGNOTE ---
Subjective: Currently no pain. Some nausea no vomiting today. No BM x 3 days. Does not want to try laxatives yet. No Fever or chill. Wound vac in place. - Physical Exam General: Alert, Oriented x3, Cooperative HEENT: Atraumatic, PERRLA, EOMI, Normocephalic Neck: Supple, No JVD, Negative Carotid Bruits Lungs: Clear to auscultation, Normal air movement Cardiovascular: Regular rate, No murmurs Abdomen: Bowel Sounds Present, Soft, Non Tender Extremities: No edema, Capillary Refill Less than 3 Seconds Skin: No rashes, No breakdown Musculoskeletal: No Tenderness to Palpation of Joints or Extremities Neurological: Cranial nerves II-XII grossly intact Psych/Mental Status: Normal Affect, Appropriate, Alert and oriented to time, place, person, mood and affect Vital Signs Temp Pulse Resp BP Pulse Ox 98.4 F 77 16 121/66 H 93 08/24/18 07:42 08/24/18 10:00 08/24/18 07:42 08/24/18 07:42 08/24/18 07:42 Oxygen Flow Rate (L/min) 1 Oxygen Delivery Method Room Air Weight: 177 lb 12.845 oz Body Mass Index (BMI) 28.7 Intake and Output for Last 24 Hours 08/22/18 08/23/18 08/24/18 23:59 23:59 23:59 Intake Total 1171 / 1171 3587 / 3587 1033 / 1033 Output Total 250 / 250 700 / 700 Balance 921 / 921 3587 / 3587 333 / 333 Microbiology Past 72 Hours 08/23/18 18:00 Gram Stain - Final Bone - Left Foot 08/22/18 16:15 Gram Stain - Final Wound Abcess - Left Foot Wound Culture - Preliminary Staphylococcus aureus Streptococcus group B Anaerobic Culture - Preliminary Checking for anaerobes, further studies to follow. Laboratory Tests Past 24 Hrs 08/23/18 08/24/18 08/24/18 22:20 07:52 07:52 WBC 7.9 RBC 3.37 L Hgb 10.2 L 9.7 L Hct 31.8 L 29.7 L MCV 88.1 MCH 28.8 MCHC 32.7 RDW 12.9 RDW Differential 40.2 Plt Count 323 MPV 10.4 Sodium Potassium Chloride Carbon Dioxide Anion Gap BUN Creatinine Estim Creat Clear Calc Est GFR (MDRD) Af Amer Est GFR (MDRD) Non-Af BUN/Creatinine Ratio Glucose Calcium Vancomycin Trough 5.5 08/24/18 07:52 WBC RBC Hgb Hct MCV MCH MCHC RDW RDW Differential Plt Count MPV Sodium 142 Potassium 3.8 Chloride 107 Carbon Dioxide 24.0 Anion Gap 11 BUN 15 Creatinine 0.97 Estim Creat Clear Calc 62.79 Est GFR (MDRD) Af Amer 77 Est GFR (MDRD) Non-Af 64 BUN/Creatinine Ratio 15.5 Glucose 200 H Calcium 8.0 L Vancomycin Trough POC Glucose 08/24/18 08/24/18 08/23/18 11:05 06:59 23:01 POC Glucose 147 H 237 H 368 H 08/23/18 08/23/18 08/23/18 18:34 16:23 15:52 POC Glucose 256 H 211 H 55 L 08/23/18 08/23/18 15:11 14:53 POC Glucose 145 H 74 Medical Necessity - Tobacco Use Smoking Status: Never smoker Assessment/Plan All Active Problems Hepatitis B (Resolved) 1. L foot diabetic ulcer with cellulitis - initial wound cultures with strep/staph.. S/p surgical incision and drainage of left foot with bone biopsy of the fifth metatarsals postop day #1. Infectious disease and podiatry following. Bone biopsy pending. Continue Flagyl and cefepime. 2. Type 2 diabetes mellitus-poorly controlled-A1c 12%. Continue insulin as ordered and titrate to response. 3. Chronic back pain-stable continue gabapentin. 4. Restless leg syndrome -continue Requip 5. Hyperlipidemia-statin 6. Depression anxiety-currently not on oral medications. DVT prophylaxis: SCDs Discharge planning: Wound VAC is in place, await final cultures and antibiotic recommendation, plan is for detention at discharge. This patient was seen by Donovan Samuels PA-C under the supervision of Doctor Perez.
[2018-08-24] MEDS: Polyethylene Glycol 3350 17 GM PACKET PO (13:52)
[2018-08-24 16:11] LABS: Bedside Glucose 124 mg/dL (70-110)
[2018-08-24] MEDS: Insulin Lispro 100 UNIT/ML INSULN.PEN 10 UNIT SC (17:04)
[2018-08-24] MEDS: Magnesium Hydroxide 30 ML UDC PO (17:09)
[2018-08-24] MEDS: Atorvastatin Calcium 80 MG Tablet PO (21:40)
[2018-08-24 22:45] LABS: Bedside Glucose 254 mg/dL (70-110)
[2018-08-24] MEDS: Bisacodyl 5 MG Tablet PO (23:00)
[2018-08-25] VITALS: RESP 16; O2SAT 99
[2018-08-25] MEDS: HYDROcodone Bitartrate/Apap 5/325 Tablet PO ×2 (03:13→11:56)
[2018-08-25 03:27] VITALS: BP 120/64; PULSE 76; RESP 16; TEMP 36.7; O2SAT 98
[2018-08-25 06:07] LABS: Hematocrit 31.6 % (37-47); Hemoglobin 10.1 g/dl (12.0-15.0)
[2018-08-25] MEDS: metroNIDAZOLE 500 MG Tablet PO ×2 (06:33→13:37)
[2018-08-25] MEDS: Gabapentin 800 MG Tablet PO ×2 (06:35→13:38)
[2018-08-25 06:41] LABS: Bedside Glucose 127 mg/dL (70-110)
--- NOTE | 2018-08-25 07:20 | PCM.PROGNOTE ---
Subjective: patient seen at bedside this morning. no events over night. pain is controlled to left foot. patient denies n/v/f/c. Objective: Patient is alert and orientated x 3. patient does not appear in any distress right foot with stable, noninfected superficial ulceration with no drainage. there is no erythema present to right foot. no signs of infection to right foot. left foot is dressed with wound vac. wound culture: group b strep; staph aureus. bone culture: no growth to date - Physical Exam Vital Signs Temp Pulse Resp BP Pulse Ox 98.1 F 76 16 120/64 98 08/25/18 03:27 08/25/18 03:27 08/25/18 03:27 08/25/18 03:27 08/25/18 03:27 Oxygen Flow Rate (L/min) 1 Oxygen Delivery Method Room Air Weight: 80.65 kg Body Mass Index (BMI) 28.7 Intake and Output for Last 24 Hours 08/23/18 08/24/18 08/25/18 23:59 23:59 23:59 Intake Total 3587 / 3587 1273 / 1273 577 / 577 Output Total 700 / 700 400 / 400 Balance 3587 / 3587 573 / 573 177 / 177 Microbiology Past 72 Hours 08/23/18 18:00 Gram Stain - Final Bone - Left Foot 08/22/18 16:15 Gram Stain - Final Wound Abcess - Left Foot Wound Culture - Preliminary Staphylococcus aureus Streptococcus group B Anaerobic Culture - Preliminary Checking for anaerobes, further studies to follow. Laboratory Tests Past 24 Hrs 08/24/18 08/24/18 08/24/18 07:52 07:52 07:52 WBC 7.9 RBC 3.37 L Hgb 9.7 L Hct 29.7 L MCV 88.1 MCH 28.8 MCHC 32.7 RDW 12.9 RDW Differential 40.2 Plt Count 323 MPV 10.4 Sodium 142 Potassium 3.8 Chloride 107 Carbon Dioxide 24.0 Anion Gap 11 BUN 15 Creatinine 0.97 Estim Creat Clear Calc 62.79 Est GFR (MDRD) Af Amer 77 Est GFR (MDRD) Non-Af 64 BUN/Creatinine Ratio 15.5 Glucose 200 H Calcium 8.0 L Vancomycin Trough 5.5 08/25/18 05:42 WBC RBC Hgb 10.1 L Hct 31.6 L MCV MCH MCHC RDW RDW Differential Plt Count MPV Sodium Potassium Chloride Carbon Dioxide Anion Gap BUN Creatinine Estim Creat Clear Calc Est GFR (MDRD) Af Amer Est GFR (MDRD) Non-Af BUN/Creatinine Ratio Glucose Calcium Vancomycin Trough POC Glucose 08/25/18 08/24/18 08/24/18 06:21 22:31 16:02 POC Glucose 127 H 254 H 124 H 08/24/18 11:05 POC Glucose 147 H Medical Necessity - Tobacco Use Smoking Status: Never smoker Assessment/Plan All Active Problems Hepatitis B (Resolved) Patient right foot appears stable. continue with silvercel and peg assisted offloading boot. I foresee significant benefit in patient going to rehab to allow her to stay off her foot. If she remains partial weightbearing to right heel, I foresee good chances of healing. left foot has wound vac intact. will continue for now. suspect she will need this for duration to exceed 4 weeks or longer. currently, bone culture does not show any bacterial growth. continue with wound vac and antibiotics. nwb to left foot. if cultures negative on bone, can discharge to rehab. she will require weekly f/u with me in my outpatient clinic.
[2018-08-25 07:35] VITALS: BP 130/76; PULSE 79; RESP 16; TEMP 36.4; O2SAT 97
[2018-08-25] MEDS: Ascorbic Acid 500 MG Tablet PO (08:33)
[2018-08-25] MEDS: Pantoprazole Sodium 20 MG Tablet PO (08:33)
[2018-08-25] MEDS: 0.9% NaCl Peripheral Flush Adult/Peds IV (08:33)
[2018-08-25] MEDS: Insulin Lispro 100 UNIT/ML INSULN.PEN 10 UNIT SC ×2 (08:35→11:57)
[2018-08-25] MEDS: Pramipexole Di-HCl 0.5 MG Tablet 1.5 MG PO (10:26)
--- NOTE | 2018-08-25 11:40 | PCM.TXEXTCAR ---
- Diet 08/24/18 09:33 Diet: Calorie Controlled Type of Dietary Supplement:: Glucerna Shake Is pt able to select menu?: Yes How many daily calories?: 1800 calorie - Routine Orders/Code Status Enema Frequency: Daily PRN Suppository Type: Dulcolax 10mg Suppository Frequency: Daily PRN Routine Lab Work: CBC - 5 days, BMP - 5 days Code Status: Full Code - Wound(s) LEFT PLANTAR ULCER Wound Type: Neuropathic/Diabetic Foot Ulcer Dressing Change: KCI wound VAC RIGHT PLANTAR ULCER Wound Type: Neuropathic/Diabetic Foot Ulcer Dressing Change: AntiMicrobial (Aquacel AG, etc) right heel Dressing Change: Continue Wound Vac. Care per ortho. Partial weightbearing to right heel, silvercel and peg assisted offloading boot. - Therapies Weight Bearing: heel touch Physical Therapy: Eval and Treat Occupational Therapy: Eval and Treat - Problem/Diagnosis (1) Cellulitis Status: Acute Current Visit: Yes (2) Diabetic foot ulcer associated with type 2 diabetes mellitus Status: Acute Current Visit: No (3) HLD (hyperlipidemia) Status: Chronic Current Visit: Yes (4) Back pain, chronic Status: Chronic Current Visit: No (5) Depression Status: Chronic Current Visit: No (6) RLS (restless legs syndrome) Status: Chronic Current Visit: No (7) Type II diabetes mellitus, uncontrolled Status: Chronic Current Visit: No - Allergies/Procedures Done in Hospital Allergies/Adverse Reactions: Allergies oxycodone [Oxycodone] Allergy (Verified 08/17/18 14:04) Rash oxycodone HCl [From OxyContin] Allergy (Verified 08/17/18 14:04) Rash Penicillins Allergy (Verified 08/17/18 14:04) Shortness of breath Procedures: Wound Vac placement - Type of Care/Length of Stay Estimated LOS: Convalescent Care Less Than 30 days Type of Care Needed: Skilled Rehab Potential: Fair Prognosis: Fair - Additional Orders/Day of Discharge Day of Discharge: 08/25/18 - Dietary and Speech Recommendations Dietitian Recommendations/Changes: Rec adv JOSHUA to 1800 calorie diet. Rec Ted 1 packet BID for wound healing--ordered through pharmacy and d/c Glucerna shake once Ted ordered. Will provide Ensure Clear w/ meals while on clear liquid diet. - Follow Up Care Primary Care Physician: Raúl Eric MD [Primary Care Provider] - Please follow up with your Primary Care Physician in: 2 weeks Please Follow Up With: Landen Allen DPM When: 1 week
--- NOTE | 2018-08-25 11:51 | PCM.PN.ID ---
Patient Problems: Active and Suspected Problems Cellulitis (Acute) Subjective: Feeling ok, c/o hard stools, no fever, no n/v/d. - Physical Exam General: Alert, Cooperative, No apparent distress Lungs: Clear to auscultation, Normal air movement Cardiovascular: Regular rate, Regular Rhythm Abdomen: Soft, Non Tender, Non-Distended Skin: Incision - foot wrapped Vital Signs Temp Pulse Resp BP Pulse Ox 97.5 F L 79 16 130/76 H 97 08/25/18 07:35 08/25/18 07:35 08/25/18 07:35 08/25/18 07:35 08/25/18 07:35 Oxygen Flow Rate (L/min) 1 Oxygen Delivery Method Room Air Weight: 80.65 kg Body Mass Index (BMI) 28.7 Intake and Output for Last 24 Hours 08/23/18 08/24/18 08/25/18 23:59 23:59 23:59 Intake Total 3587 / 3587 1273 / 1273 577 / 577 Output Total 700 / 700 400 / 400 Balance 3587 / 3587 573 / 573 177 / 177 Microbiology Past 72 Hours 08/23/18 18:00 Gram Stain - Final Bone - Left Foot Wound Culture - Preliminary No growth-Final to follow 08/22/18 16:15 Gram Stain - Final Wound Abcess - Left Foot Wound Culture - Final Staphylococcus aureus Streptococcus agalactiae (B) Anaerobic Culture - Preliminary Checking for anaerobes, further studies to follow. Laboratory Tests Past 24 Hrs 08/25/18 05:42 Hgb 10.1 L Hct 31.6 L POC Glucose 08/25/18 08/24/18 08/24/18 06:21 22:31 16:02 POC Glucose 127 H 254 H 124 H Medical Necessity - Tobacco Use Smoking Status: Never smoker Route of nutrition/ use of supplements: [] Nutritional Intake: [] IV Site: [] Tirado Catheter: [] - Assessment/Plan Antibiotics: [] Assessment/Plan: [] L foot infected ulcer with uncontrolled DM and neuropathy - recent cx with MSSA and GBS. Cx here with same so far. MRSA pcr neg. Taken to OR 08/[address] Allen with pus drained and bone bx sent. No osteo seen on MRI. Plan will be for discharge to [facility] on bactrim, keflex, and flagyl with stop date 09/02/18. Will follow, d/w primary team.
[2018-08-25] MEDS: Insulin Lispro 100 UNIT/ML INSULN.PEN SC (11:57)
[2018-08-25 12:20] LABS: Bedside Glucose 188 mg/dL (70-110)
[2018-08-25] MEDS: Ondansetron ODT 4 MG Tablet PO (12:35)
[2018-08-25 13:01] VITALS: BP 126/72; PULSE 83; RESP 16; TEMP 36.9; O2SAT 96
[2018-08-25] MEDS: Cephalexin 500 MG Capsule PO (13:37)
[2018-08-25] MEDS: Smz/Tmp Ds Tablet 1 TABLET PO (13:37)
--- NOTE | 2018-08-25 14:39 | CASEMGMT ---
Addendum entered by Erika Tobar 08/25/18 14:45: SW placed a call to Muna at [facility] and left her a message that pt has decided to go to TCU at [facility] now and won't be going to [facility]. Original Note: Social Work Note SW faxed updated clinicals to Muna at [facility]. SW received message from Muna at [facility] stating she is able to accept pt and is just waiting to get a wound vac delieverd to [facility]. SW in to update pt on acceptance to [facility]. Per pt, physician mentioned having pt stay at [facility] in TCU and pt prefers to stay at [facility] now. SW explained that this worker will have to check on bed availability and will have to check if TCU is able to accept pt. Pt states understanding. SW placed a call to Traci in TCU to provide referral. Per Traci she is able to accept pt today. LUCRETIA updated pt of acceptance to TCU. Pt states understanding. Plan: Discharge to TCU today Erika Tobar IT FIELD TECHNICIAN, DIE WELDER
--- NOTE | 2018-08-25 14:45 | PCM.DC.SUM ---
Discharge Date and Diagnosis - Problem List Patient Problems: Active and Suspected Problems Cellulitis (Acute) Date of Admission: 08/22/18 Date of Discharge: 08/25/18 - Primary Discharge Diagnosis Active and Suspected Problems Left foot diabetic ulcer with cellulitis, streptococcal and staphylococcal, MSSA Type 2 diabetes mellitus, poorly controlled A1c 12% Chronic back pain Restless leg syndrome Hyperlipidemia Depression and anxiety - Secondary Discharge Diagnosis Chronic Problems HLD (hyperlipidemia) (Chronic) Back pain, chronic (Chronic) Hyponatremia (Chronic) Depression (Chronic) RLS (restless legs syndrome) (Chronic) Type II diabetes mellitus, uncontrolled (Chronic) Anxiety state (Chronic) Hospital Course and Treatment Imaging Results: MRI/Lower Ext No Joint W/WO Cont IMPRESSION: Cellulitis without demonstrated soft tissue abscess. Arthropathy of the navicular-cuneiform and second through fifth tarsometatarsal joints suggestive of neuropathic osteoarthropathy. Myositis of the flexor digitorum brevis and abductor digiti minimi muscles. Atrophy of the intrinsic muscles of the foot suggestive of peripheral neuropathy. Amputation of the fifth digit at the level of the proximal metatarsal diaphysis without demonstrated recurrent osteomyelitis. RAD/Foot 2 Views IMPRESSION: Intraoperative fluoroscopic image guidance. 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 She had recently been on doxycycline and had not had improvement in her wounds. She had had a previous amputation of the mid and distal portion of the fifth metatarsal and fifth toe. She was admitted to the general medical floor with podiatry on consult, she was taken to the operating room on 08/23/2018. While here she was on Flagyl and cefepime. Cultures demonstrated Streptococcus agalactia and MSSA. Infectious disease was consulted. She was placed on p.o. Flagyl, Doxy, Keflex to continue as an outpatient. She was advised to have partial weightbearing with the boot per podiatry. Wound care was provided, a wound VAC was placed. With the severity of her wound, chronic wounds, and related debility, intermediate was recommended. She was agreeable, and she was discharged to intermediate in stable condition. She will need to follow-up weekly with podiatry, and she will need to follow-up with her PCP in 2 weeks. Fungal, acid-fast cultures are pending. Bone culture preliminary is negative. Please note insulin therapy was adjusted while here as an A1c was 12%, and she is very poorly controlled. This patient was seen by Donovan Samuels PA-C under the supervision of Doctor Chris. [] Patient Problems: Active and Suspected Problems Cellulitis (Acute) - Physical Exam General: Alert, Oriented x3, Cooperative HEENT: Atraumatic, PERRLA, EOMI, Normocephalic Neck: Supple, No JVD, Negative Carotid Bruits Lungs: Clear to auscultation, Normal air movement Cardiovascular: Regular rate, No murmurs Abdomen: Bowel Sounds Present, Soft, Non Tender Extremities: No edema, Capillary Refill Less than 3 Seconds Skin: No rashes, No breakdown Musculoskeletal: No Tenderness to Palpation of Joints or Extremities Neurological: Cranial nerves II-XII grossly intact Psych/Mental Status: Normal Affect, Appropriate Vital Signs Temp Pulse Resp BP Pulse Ox 98.5 F 83 16 126/72 H 96 08/25/18 13:01 08/25/18 13:01 08/25/18 13:01 08/25/18 13:01 08/25/18 13:01 Oxygen Flow Rate (L/min) 1 Oxygen Delivery Method Room Air Weight: 177 lb 12.845 oz Body Mass Index (BMI) 28.7 Intake and Output for Last 24 Hours 08/23/18 08/24/18 08/25/18 23:59 23:59 23:59 Intake Total 3587 / 3587 1273 / 1273 577 / 577 Output Total 700 / 700 400 / 400 Balance 3587 / 3587 573 / 573 177 / 177 Microbiology Past 72 Hours 08/23/18 18:00 Gram Stain - Final Bone - Left Foot Wound Culture - Preliminary No growth-Final to follow 08/22/18 16:15 Gram Stain - Final Wound Abcess - Left Foot Wound Culture - Final Staphylococcus aureus Streptococcus agalactiae (B) Anaerobic Culture - Preliminary Checking for anaerobes, further studies to follow. Laboratory Tests Past 24 Hrs 08/25/18 05:42 Hgb 10.1 L Hct 31.6 L POC Glucose 08/25/18 08/25/18 08/24/18 11:54 06:21 22:31 POC Glucose 188 H 127 H 254 H 08/24/18 16:02 POC Glucose 124 H Discharge Diet: 1800 Calorie Control Diet Discharge Activity: Return to Normal Activity Home Medications: Medications to take at Discharge Ropinirole HCl [Requip] 3 mg PO BID 01/13/14 Insulin Aspart [Novolog Flexpen] 15 units SC TIDCM 01/27/15 Ascorbic Acid 500 mg PO BID 08/22/18 Collagenase [Santyl] 1 applicatio TOPICAL DAILY 08/22/18 Ergocalciferol [Vitamin D] 50,000 unit PO GRAY 08/22/18 Gabapentin [Neurontin] 800 mg PO TID 08/22/18 Omeprazole [Prilosec] 20 mg PO DAILY 08/22/18 Rosuvastatin Calcium [Crestor] 40 mg PO DAILY 08/22/18 Acetaminophen [Tylenol Tablet] 650 mg PO Q6H PRN PRN tablet 08/25/18 Bisacodyl [Dulcolax] 5 mg PO DAILY PRN PRN tablet 08/25/18 Cephalexin [Keflex] 500 mg PO Q8 #32 cap 08/25/18 Hydrocodone/Acetaminophen [Hydrocodone-Acetamin 5-325 mg] 1 tab PO Q4H PRN PRN 2 Days #12 tab 08/25/18 Insulin Glargine [Lantus SoloStar Pen] 30 units SC BID pen 08/25/18 Magnesium Hydroxide [Milk Of Magnesia] 30 ml PO DAILY PRN PRN udc 08/25/18 Metronidazole [Flagyl] 500 mg PO TID #32 tab 08/25/18 Psyllium [Metamucil] 1 packet PO DAILY PRN PRN packet 08/25/18 Smz/Tmp Ds [Bactrim Ds] 1 tab PO BID #16 tab 08/25/18 Following Prescrptions Were Given to Patient: Cephalexin [Keflex] 500 mg PO Q8 #32 cap Hydrocodone/Acetaminophen [Hydrocodone-Acetamin 5-325 mg] 1 tab PO Q4H PRN PRN 2 Days #12 tab PRN Reason: Mod-Severe Pain (4-07/19) Metronidazole [Flagyl] 500 mg PO TID #32 tab Smz/Tmp Ds [Bactrim Ds] 1 tab PO BID #16 tab Primary Care Physician: Raúl Eric MD [Primary Care Provider] - Please follow up with your Primary Care Physician in: 2 weeks Please Follow Up With: Landen Allen DPM When: 1 week Disposition: Half-Way facility Minutes spent on discharge:: 35 Patient Condition:: Stable Medical Necessity - Tobacco Use Smoking Status: Never smoker Meaningful Use Info Meaningful Use Diagnoses (Choose all that apply): None applicable
--- NOTE | 2018-08-25 14:52 | DS.PCM_ITS ---
Discharge Date and Diagnosis - Problem List Patient Problems: Active and Suspected Problems Cellulitis (Acute) Date of Admission: 08/22/18 Date of Discharge: 08/25/18 - Primary Discharge Diagnosis Active and Suspected Problems Left foot diabetic ulcer with cellulitis, streptococcal and staphylococcal, MSSA Type 2 diabetes mellitus, poorly controlled A1c 12% Chronic back pain Restless leg syndrome Hyperlipidemia Depression and anxiety - Secondary Discharge Diagnosis Chronic Problems HLD (hyperlipidemia) (Chronic) Back pain, chronic (Chronic) Hyponatremia (Chronic) Depression (Chronic) RLS (restless legs syndrome) (Chronic) Type II diabetes mellitus, uncontrolled (Chronic) Anxiety state (Chronic) Hospital Course and Treatment Imaging Results: MRI/Lower Ext No Joint W/WO Cont IMPRESSION: Cellulitis without demonstrated soft tissue abscess. Arthropathy of the navicular-cuneiform and second through fifth tarsometatarsal joints suggestive of neuropathic osteoarthropathy. Myositis of the flexor digitorum brevis and abductor digiti minimi muscles. Atrophy of the intrinsic muscles of the foot suggestive of peripheral neuropathy. Amputation of the fifth digit at the level of the proximal metatarsal diaphysis without demonstrated recurrent osteomyelitis. RAD/Foot 2 Views IMPRESSION: Intraoperative fluoroscopic image guidance. 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 She had recently been on doxycycline and had not had improvement in her wounds. She had had a previous amputation of the mid and distal portion of the fifth metatarsal and fifth toe. She was admitted to the general medical floor with podiatry on consult, she was taken to the operating room on 08/23/2018. While here she was on Flagyl and cefepime. Cultures demonstrated Streptococcus agalactia and MSSA. Infectious disease was consulted. She was placed on p.o. Flagyl, Doxy, Keflex to continue as an outpatient. She was advised to have partial weightbearing with the boot per podiatry. Wound care was provided, a wound VAC was placed. With the severity of her wound, chronic wounds, and related debility, custodial was recommended. She was agreeable, and she was discharged to custodial in stable condition. She will need to follow- up weekly with podiatry, and she will need to follow-up with her PCP in 2 weeks. Fungal, acid-fast cultures are pending. Bone culture preliminary is negative. Please note insulin therapy was adjusted while here as an A1c was 12%, and she is very poorly controlled. This patient was seen by Donovan Samuels PA-C under the supervision of Doctor Chris. [] Patient Problems: Active and Suspected Problems Cellulitis (Acute) - Physical Exam General: Alert, Oriented x3, Cooperative HEENT: Atraumatic, PERRLA, EOMI, Normocephalic Neck: Supple, No JVD, Negative Carotid Bruits Lungs: Clear to auscultation, Normal air movement Cardiovascular: Regular rate, No murmurs Abdomen: Bowel Sounds Present, Soft, Non Tender Extremities: No edema, Capillary Refill Less than 3 Seconds Skin: No rashes, No breakdown Musculoskeletal: No Tenderness to Palpation of Joints or Extremities Neurological: Cranial nerves II-XII grossly intact Psych/Mental Status: Normal Affect, Appropriate Vital Signs Temp Pulse Resp BP Pulse Ox 98.5 F 83 16 126/72 H 96 08/25/18 13:01 08/25/18 13:01 08/25/18 13:01 08/25/18 13:01 08/25/18 13:01 Oxygen Flow Rate (L/min) 1 Oxygen Delivery Method Room Air Weight: 177 lb 12.845 oz Body Mass Index (BMI) 28.7 Intake and Output for Last 24 Hours 08/23/18 08/24/18 08/25/18 23:59 23:59 23:59 Intake Total 3587 / 3587 1273 / 1273 577 / 577 Output Total 700 / 700 400 / 400 Balance 3587 / 3587 573 / 573 177 / 177 Microbiology Past 72 Hours 08/23/18 18:00 Gram Stain - Final Bone - Left Foot Wound Culture - Preliminary No growth-Final to follow 08/22/18 16:15 Gram Stain - Final Wound Abcess - Left Foot Wound Culture - Final Staphylococcus aureus Streptococcus agalactiae (B) Anaerobic Culture - Preliminary Checking for anaerobes, further studies to follow. Laboratory Tests Past 24 Hrs 08/25/18 05:42 Hgb 10.1 L Hct 31.6 L POC Glucose 08/25/18 08/25/18 08/24/18 11:54 06:21 22:31 POC Glucose 188 H 127 H 254 H 08/24/18 16:02 POC Glucose 124 H Discharge Diet: 1800 Calorie Control Diet Discharge Activity: Return to Normal Activity Home Medications: Medications to take at Discharge Ropinirole HCl [Requip] 3 mg PO BID 01/13/14 Insulin Aspart [Novolog Flexpen] 15 units SC TIDCM 01/27/15 Ascorbic Acid 500 mg PO BID 08/22/18 Collagenase [Santyl] 1 applicatio TOPICAL DAILY 08/22/18 Ergocalciferol [Vitamin D] 50,000 unit PO GRAY 08/22/18 Gabapentin [Neurontin] 800 mg PO TID 08/22/18 Omeprazole [Prilosec] 20 mg PO DAILY 08/22/18 Rosuvastatin Calcium [Crestor] 40 mg PO DAILY 08/22/18 Acetaminophen [Tylenol Tablet] 650 mg PO Q6H PRN PRN tablet 08/25/18 Bisacodyl [Dulcolax] 5 mg PO DAILY PRN PRN tablet 08/25/18 Cephalexin [Keflex] 500 mg PO Q8 #32 cap 08/25/18 Hydrocodone/Acetaminophen [Hydrocodone-Acetamin 5-325 mg] 1 tab PO Q4H PRN PRN 2 Days #12 tab 08/25/18 Insulin Glargine [Lantus SoloStar Pen] 30 units SC BID pen 08/25/18 Magnesium Hydroxide [Milk Of Magnesia] 30 ml PO DAILY PRN PRN udc 08/25/18 Metronidazole [Flagyl] 500 mg PO TID #32 tab 08/25/18 Psyllium [Metamucil] 1 packet PO DAILY PRN PRN packet 08/25/18 Smz/Tmp Ds [Bactrim Ds] 1 tab PO BID #16 tab 08/25/18 Following Prescrptions Were Given to Patient: Cephalexin [Keflex] 500 mg PO Q8 #32 cap Hydrocodone/Acetaminophen [Hydrocodone-Acetamin 5-325 mg] 1 tab PO Q4H PRN PRN 2 Days #12 tab PRN Reason: Mod-Severe Pain (4-07/19) Metronidazole [Flagyl] 500 mg PO TID #32 tab Smz/Tmp Ds [Bactrim Ds] 1 tab PO BID #16 tab Primary Care Physician: Raúl Eric MD [Primary Care Provider] - Please follow up with your Primary Care Physician in: 2 weeks Please Follow Up With: Landen Allen DPM When: 1 week Disposition: Snf facility Minutes spent on discharge:: 35 Patient Condition:: Stable Medical Necessity - Tobacco Use Smoking Status: Never smoker Meaningful Use Info Meaningful Use Diagnoses (Choose all that apply): None applicable
[2018-08-25 15:00] VITALS: BP 126/72; PULSE 83; RESP 16; TEMP 36.9; O2SAT 96
--- NOTE | 2018-08-25 15:26 | NURSING ---
ALL BELONGINGS PACKED AND READY FOR TCU. DR. TORRES UP AND IN ROOM TO SEE HOWEVER.
== END 2018-08-25 15:33 | disposition skilled nursing facility (03) | DRG 623 ==
PROVIDERS: Nurse Practitioner Family; Physician Assistant; Podiatrist Foot & Ankle Surgery; Admitting Provider Internal Medicine; Family Provider Family Medicine; PCP Family Medicine; Referring Provider Internal Medicine; Visit Provider Internal Medicine
PROC: 0JBR0ZZ Excision of Left Foot Subcutaneous Tissue and Fascia, Open Approach (ICD-10-PCS; principal; 2018-08-23 07:15)
DX: E11.621 Type 2 diabetes mellitus with foot ulcer (principal); L03.116 Cellulitis of left lower limb; E11.65 Type 2 diabetes mellitus with hyperglycemia; E11.42 Type 2 diabetes mellitus with diabetic polyneuropathy; L97.529 Non-pressure chronic ulcer of other part of left foot with unspecified severity; L97.519 Non-pressure chronic ulcer of other part of right foot with unspecified severity; Z23 Encounter for immunization; E78.5 Hyperlipidemia, unspecified; G25.81 Restless legs syndrome; G89.29 Other chronic pain; M54.9 Dorsalgia, unspecified; B95.61 Methicillin susceptible Staphylococcus aureus infection as the cause of diseases classified elsewhere; B95.1 Streptococcus, group B, as the cause of diseases classified elsewhere; Z88.0 Allergy status to penicillin; E11.610 Type 2 diabetes mellitus with diabetic neuropathic arthropathy; Z79.4 Long term (current) use of insulin; F41.9 Anxiety disorder, unspecified; F32.9 Major depressive disorder, single episode, unspecified; Z91.19 Patient's noncompliance with other medical treatment and regimen; Z89.422 Acquired absence of other left toe(s); Z89.421 Acquired absence of other right toe(s)
CPT/HCPCS: 36415; 73620; 73720; 76000; 80048; 80053; 80202; 82962; 83036; 85014; 85018; 85025; 85027; 85610; 85652; 86140; 87015; 87070; 87075; 87077; 87102; 87116; 87186; 87205; 87206; 87640; 88304; 88311; 93005; 97161; 97165; 97530; 97535; 97802; A9585; J7030; J7050; 90686; A4216; J2405

== ENCOUNTER 2018-08-25 15:39 | Inpatient (IN) | payer MEDICARE, MEDICAID, SELFPAY ==
[2018-08-23 14:45] VITALS: BMI 28.7
[2018-08-25 16:00] VITALS: BP 115/56; PULSE 77; RESP 16; TEMP 36.9; O2SAT 96
[2018-08-25 17:05] LABS: Bedside Glucose 115 mg/dL (70-110)
--- NOTE | 2018-08-25 17:14 | PCM.HP.STD ---
Problem List (1) Neuropathic pain Status: Chronic (2) GERD (gastroesophageal reflux disease) Status: Chronic (3) Hypomagnesemia Status: Chronic (4) Cellulitis Status: Acute (5) Back pain, chronic Status: Chronic (6) Hyponatremia Status: Chronic (7) Depression Status: Chronic (8) Diabetic foot ulcer associated with type 2 diabetes mellitus Status: Acute (9) RLS (restless legs syndrome) Status: Chronic (10) Type II diabetes mellitus, uncontrolled Status: Chronic History of Present Illness Date of Admission: 08/25/18 Chief Complaint: Here for rehabilitation, strengthening, wound care, prior to discharge home alone. The patient is a 53 year old Female with below past medical history with followin08/22/2018 Admit to Hospital. Left foot pain, left foot diabetic ulcer. Sees Dr. Allen, on Doxycycline. 08/17/2018 wound culture grew Group B strep. IV Vancomycin, Levaquin, Flagyl for infected foot. 08/22/2018 MRI left midfoot negative osteomyelitis. 08/23/2018 Dr. Tello culture grew MSSA, GBS, GPC. MRSA negative. Antibiotics narrowed to Cefepime, Flagyl. 08/23/2018 Dr. Allen incised and drainage left foot with bone biopsy of 5th metatarsal. 08/24/2018 Dr. Tello culture MSSA, GBS. Continue Cefepime, Flagyl. 08/24/2018 Wound VAC to left foot. 08/25/2018 Dr. Tello recommended transitioning antibiotics to oral Bactrim, Keflex, Flagyl. 08/25/2018 Admit to TCU with debility, here for rehabilitation, strengthening, wound care prior to discharge home. Past Medical History Past Medical History (Chronic Problems): Chronic Problems HLD (hyperlipidemia) (Chronic) Neuropathic pain (Chronic) GERD (gastroesophageal reflux disease) (Chronic) Hypomagnesemia (Chronic) Back pain, chronic (Chronic) Hyponatremia (Chronic) Depression (Chronic) RLS (restless legs syndrome) (Chronic) Type II diabetes mellitus, uncontrolled (Chronic) Anxiety state (Chronic) Allergies oxycodone [Oxycodone] Allergy (Verified 08/17/18 14:04) Rash oxycodone HCl [From OxyContin] Allergy (Verified 08/17/18 14:04) Rash Penicillins Allergy (Verified 08/17/18 14:04) Shortness of breath Home Medications: Ambulatory Orders Medication Instructions Recorded Ropinirole HCl [Requip] 3 mg PO BID 01/13/14 Insulin Aspart [Novolog Flexpen] 15 units SC TIDCM 01/27/15 Ascorbic Acid 500 mg PO BID 08/22/18 Collagenase [Santyl] 1 applicatio TOPICAL DAILY 08/22/18 Ergocalciferol [Vitamin D] 50,000 unit PO GRAY 08/22/18 Gabapentin [Neurontin] 800 mg PO TID 08/22/18 Omeprazole [Prilosec] 20 mg PO DAILY 08/22/18 Rosuvastatin Calcium [Crestor] 40 mg PO DAILY 08/22/18 Acetaminophen [Tylenol Tablet] 650 mg PO Q6H PRN PRN tablet 08/25/18 Bisacodyl [Dulcolax] 5 mg PO DAILY PRN PRN tablet 08/25/18 Cephalexin [Keflex] 500 mg PO Q8 08/25/18 Hydrocodone/Acetaminophen 1 tab PO Q4H PRN PRN 2 Days #12 tab 08/25/18 [Hydrocodone-Acetamin 5-325 mg] Insulin Glargine [Lantus SoloStar 30 units SC BID 08/25/18 Pen] Magnesium Hydroxide [Milk Of 30 ml PO DAILY PRN PRN udc 08/25/18 Magnesia] Metronidazole [Flagyl] 500 mg PO TID 08/25/18 Psyllium [Metamucil] 1 packet PO DAILY PRN PRN packet 08/25/18 Smz/Tmp Ds [Bactrim Ds] 1 tablet PO BID 08/25/18 Surgical History: - - status post I&D of R foot 5th metatarsal abscess, 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 Bilateral carpal tunnel surgery 1994, right shoulder surgery in 1994, section x2. 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 Smoking Status: Never smoker Tobacco Use: Non-smoker Alcohol: None Drugs: None - *Family History Maternal History Items: Diabetes, Hypertension, - - Her mother at the age of 67 to a blood clot to the brain. She had had multiple strokes preceding that. Paternal History Items: - - Patient states her father when she was 5 years old, denies known medical history, denies known cardiac history. Sibling History Items: - - She has one brother who is secondary to cancer and she does not know what kind of cancer he had. She also has 3 brothers with a history of cardiovascular disease, stents and coronary artery bypass grafting. Review of Systems Constitutional: Denies: Chills, Fever, Weight Change HEENT: Denies: Head Aches, Sinus Congestion, Sinus Drainage Cardiovascular: Denies: Chest Pain, Palpitations Respiratory: Denies: Cough, Shortness of breath at rest, Sputum production Gastrointestinal: Denies: Abdominal Pain, Nausea, Vomiting Genitourinary: Denies: Dysuria Musculoskeletal: Denies: Joint Pain, Joint Tenderness Skin: Denies: Rash, Wounds Neurological: Denies: Numbness, Tingling, Focal weakness Psychiatric: Denies: Anxiety, Depression, Homicidal Ideations, Suicidal Ideations Hematologic/ Lymphatic: Denies: Easy Bruising, Easy Bleeding VTE Information - Inpt Only VTE Present on Admission: No VTE Mechan Device Prophylaxis: Knee High ROCIO Hose VTE Pharm Prophylaxis ordered?: Yes - Physical Exam General: Alert, Oriented x3, Cooperative HEENT: Atraumatic, PERRLA, EOMI, Normocephalic Neck: Supple, No JVD, Negative Carotid Bruits Lungs: Clear to auscultation, Normal air movement Cardiovascular: Regular rate, No murmurs Abdomen: Bowel Sounds Present, Soft, Non Tender Extremities: No edema, Capillary Refill Less than 3 Seconds Skin: No rashes, No breakdown, Ulcer/ Wound - Left foot wound with wound VAC. Musculoskeletal: No Tenderness to Palpation of Joints or Extremities Neurological: Cranial nerves II-XII grossly intact Psych/Mental Status: Normal Affect, Appropriate Vital Signs Temp Pulse Resp BP Pulse Ox 98.5 F 77 16 115/56 L 96 08/25/18 16:00 08/25/18 16:00 08/25/18 16:00 08/25/18 16:00 08/25/18 16:00 Oxygen Delivery Method Room Air Body Mass Index (BMI) 28.7 POC Glucose 08/25/18 16:52 POC Glucose 115 H Assessment/Plan All Active Problems Cellulitis (Acute) Diabetic foot ulcer associated with type 2 diabetes mellitus (Acute) Hepatitis B (Resolved) 53 year old female with below past medical history significant for uncontrolled Diabetes Mellitus II, hospitalized for infected left diabetic foot ulcer, underwent debridement 08/23/[address] Allen, admitted to TCU with debility, here for rehabilitation, strengthening, wound care, prior to discharge home. Debility - PT/OT. Pain - Tylenol 1000MG Q6H PRN mild pain, Oxycodone 5MG Q4H PRN moderate pain. Bowel - Miralax 17GM daily, Senna/colace 1 tablet BID, Dulcolax 10MG PO daily PRN. Pneumonia vaccination - Administer Prevnar 13 and/or Pneumovax 23 as necessary. DVT prophylaxis - Lovenox 40MG SC daily. Vitamin C deficiency - Vitamin C 500MG BID. Hyperlipidemia - Atorvastatin 80MG QHS. Left foot ulcer infection - Keflex 500MG Q8H, Flagyl 50MG TID, Bactrim DS BID thru 09/02/2018, Dr. Tello following. Left foot wound - Wound Vac, Santyl topically daily, Ted 1 packet BID. Vitamin D deficiency - D2 50,000 units per week. Diabetic polyneuropathy - Gabapentin 800MG TID. Diabetes Mellitus II - Lantus 30 units BID, Humalog 15 units TID. GERD - Pantoprazole 40MG daily. Restless Leg syndrome - Mirapex 1.5MG BID.
--- NOTE | 2018-08-25 17:19 | HP.PCM_ITS ---
Problem List (1) Neuropathic pain Status: Chronic (2) GERD (gastroesophageal reflux disease) Status: Chronic (3) Hypomagnesemia Status: Chronic (4) Cellulitis Status: Acute (5) Back pain, chronic Status: Chronic (6) Hyponatremia Status: Chronic (7) Depression Status: Chronic (8) Diabetic foot ulcer associated with type 2 diabetes mellitus Status: Acute (9) RLS (restless legs syndrome) Status: Chronic (10) Type II diabetes mellitus, uncontrolled Status: Chronic History of Present Illness Date of Admission: 08/25/18 Chief Complaint: Here for rehabilitation, strengthening, wound care, prior to discharge home alone. The patient is a 53 year old Female with below past medical history with followin08/22/2018 Admit to Hospital. Left foot pain, left foot diabetic ulcer. Sees Dr. Allen, on Doxycycline. 08/17/2018 wound culture grew Group B strep. IV Vancomycin, Levaquin, Flagyl for infected foot. 08/22/2018 MRI left midfoot negative osteomyelitis. 08/23/2018 Dr. Tello culture grew MSSA, GBS, GPC. MRSA negative. Antibiotics narrowed to Cefepime, Flagyl. 08/23/2018 Dr. Allen incised and drainage left foot with bone biopsy of 5th metatarsal. 08/24/2018 Dr. Tello culture MSSA, GBS. Continue Cefepime, Flagyl. 08/24/2018 Wound VAC to left foot. 08/25/2018 Dr. Tello recommended transitioning antibiotics to oral Bactrim, Keflex, Flagyl. 08/25/2018 Admit to TCU with debility, here for rehabilitation, strengthening, wound care prior to discharge home. Past Medical History Past Medical History (Chronic Problems): Chronic Problems HLD (hyperlipidemia) (Chronic) Neuropathic pain (Chronic) GERD (gastroesophageal reflux disease) (Chronic) Hypomagnesemia (Chronic) Back pain, chronic (Chronic) Hyponatremia (Chronic) Depression (Chronic) RLS (restless legs syndrome) (Chronic) Type II diabetes mellitus, uncontrolled (Chronic) Anxiety state (Chronic) Allergies oxycodone [Oxycodone] Allergy (Verified 08/17/18 14:04) Rash oxycodone HCl [From OxyContin] Allergy (Verified 08/17/18 14:04) Rash Penicillins Allergy (Verified 08/17/18 14:04) Shortness of breath Home Medications: Ambulatory Orders Medication Instructions Recorded Ropinirole HCl [Requip] 3 mg PO BID 01/13/14 Insulin Aspart [Novolog Flexpen] 15 units SC TIDCM 01/27/15 Ascorbic Acid 500 mg PO BID 08/22/18 Collagenase [Santyl] 1 applicatio TOPICAL DAILY 08/22/18 Ergocalciferol [Vitamin D] 50,000 unit PO GRAY 08/22/18 Gabapentin [Neurontin] 800 mg PO TID 08/22/18 Omeprazole [Prilosec] 20 mg PO DAILY 08/22/18 Rosuvastatin Calcium [Crestor] 40 mg PO DAILY 08/22/18 Acetaminophen [Tylenol Tablet] 650 mg PO Q6H PRN PRN tablet 08/25/18 Bisacodyl [Dulcolax] 5 mg PO DAILY PRN PRN tablet 08/25/18 Cephalexin [Keflex] 500 mg PO Q8 08/25/18 Hydrocodone/Acetaminophen 1 tab PO Q4H PRN PRN 2 Days #12 tab 08/25/18 [Hydrocodone-Acetamin 5-325 mg] Insulin Glargine [Lantus SoloStar 30 units SC BID 08/25/18 Pen] Magnesium Hydroxide [Milk Of 30 ml PO DAILY PRN PRN udc 08/25/18 Magnesia] Metronidazole [Flagyl] 500 mg PO TID 08/25/18 Psyllium [Metamucil] 1 packet PO DAILY PRN PRN packet 08/25/18 Smz/Tmp Ds [Bactrim Ds] 1 tablet PO BID 08/25/18 Surgical History: - - status post I&D of R foot 5th metatarsal abscess, 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 Bilateral carpal tunnel surgery 1994, right shoulder surgery in 1994, section x2. 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 Smoking Status: Never smoker Tobacco Use: Non-smoker Alcohol: None Drugs: None - *Family History Maternal History Items: Diabetes, Hypertension, - - Her mother at the age of 67 to a blood clot to the brain. She had had multiple strokes preceding that. Paternal History Items: - - Patient states her father when she was 5 years old, denies known medical history, denies known cardiac history. Sibling History Items: - - She has one brother who is secondary to cancer and she does not know what kind of cancer he had. She also has 3 brothers with a history of cardiovascular disease, stents and coronary artery bypass grafting. Review of Systems Constitutional: Denies: Chills, Fever, Weight Change HEENT: Denies: Head Aches, Sinus Congestion, Sinus Drainage Cardiovascular: Denies: Chest Pain, Palpitations Respiratory: Denies: Cough, Shortness of breath at rest, Sputum production Gastrointestinal: Denies: Abdominal Pain, Nausea, Vomiting Genitourinary: Denies: Dysuria Musculoskeletal: Denies: Joint Pain, Joint Tenderness Skin: Denies: Rash, Wounds Neurological: Denies: Numbness, Tingling, Focal weakness Psychiatric: Denies: Anxiety, Depression, Homicidal Ideations, Suicidal Ideations Hematologic/ Lymphatic: Denies: Easy Bruising, Easy Bleeding VTE Information - Inpt Only VTE Present on Admission: No VTE Mechan Device Prophylaxis: Knee High ROCIO Hose VTE Pharm Prophylaxis ordered?: Yes - Physical Exam General: Alert, Oriented x3, Cooperative HEENT: Atraumatic, PERRLA, EOMI, Normocephalic Neck: Supple, No JVD, Negative Carotid Bruits Lungs: Clear to auscultation, Normal air movement Cardiovascular: Regular rate, No murmurs Abdomen: Bowel Sounds Present, Soft, Non Tender Extremities: No edema, Capillary Refill Less than 3 Seconds Skin: No rashes, No breakdown, Ulcer/ Wound - Left foot wound with wound VAC. Musculoskeletal: No Tenderness to Palpation of Joints or Extremities Neurological: Cranial nerves II-XII grossly intact Psych/Mental Status: Normal Affect, Appropriate Vital Signs Temp Pulse Resp BP Pulse Ox 98.5 F 77 16 115/56 L 96 08/25/18 16:00 08/25/18 16:00 08/25/18 16:00 08/25/18 16:00 08/25/18 16:00 Oxygen Delivery Method Room Air Body Mass Index (BMI) 28.7 POC Glucose 08/25/18 16:52 POC Glucose 115 H Assessment/Plan All Active Problems Cellulitis (Acute) Diabetic foot ulcer associated with type 2 diabetes mellitus (Acute) Hepatitis B (Resolved) 53 year old female with below past medical history significant for uncontrolled Diabetes Mellitus II, hospitalized for infected left diabetic foot ulcer, underwent debridement 08/23/[address] Allen, admitted to TCU with debility, here for rehabilitation, strengthening, wound care, prior to discharge home. * Debility - PT/OT. * Pain - Tylenol 1000MG Q6H PRN mild pain, Oxycodone 5MG Q4H PRN moderate pain. * Bowel - Miralax 17GM daily, Senna/colace 1 tablet BID, Dulcolax 10MG PO daily PRN. * Pneumonia vaccination - Administer Prevnar 13 and/or Pneumovax 23 as necessary. * DVT prophylaxis - Lovenox 40MG SC daily. * Vitamin C deficiency - Vitamin C 500MG BID. * Hyperlipidemia - Atorvastatin 80MG QHS. * Left foot ulcer infection - Keflex 500MG Q8H, Flagyl 50MG TID, Bactrim DS BID thru 09/02/2018, Dr. Tello following. * Left foot wound - Wound Vac, Santyl topically daily, Ted 1 packet BID. * Vitamin D deficiency - D2 50,000 units per week. * Diabetic polyneuropathy - Gabapentin 800MG TID. * Diabetes Mellitus II - Lantus 30 units BID, Humalog 15 units TID. * GERD - Pantoprazole 40MG daily. * Restless Leg syndrome - Mirapex 1.5MG BID.
[2018-08-25] MEDS: Insulin Lispro 100 UNIT/ML INSULN.PEN 15 UNIT SC (18:14)
[2018-08-25] MEDS: Ondansetron ODT 4 MG Tablet PO (18:50)
[2018-08-25] MEDS: oxyCODONE 5 MG Tablet PO (19:01)
--- NOTE | 2018-08-25 20:19 | NURSING ---
This nurse went to pt room to introduce self, make initial 'rounding' down [place]. Explained orders for ss enema; pt unaware what an enema is and how it works. Refused, saying she has 'never put anything in that end' and would prefer something to drink. Also refused all scheduled meds at this point but stated the prn oxyir was helpful in reducing pain. Said that zofran helped nausea 'a little'. RN aware. Continuing to monitor.
[2018-08-25 20:56] VITALS: BMI 31.5
[2018-08-25 21:03] VITALS: BMI 31.6
[2018-08-25 21:06] LABS: Bedside Glucose 105 mg/dL (70-110)
[2018-08-25] MEDS: Gabapentin 800 MG Tablet PO (21:20)
[2018-08-26 06:50] LABS: Bedside Glucose 127 mg/dL (70-110)
[2018-08-26] MEDS: Glucerna Shake 120 ML LIQUID PO ×2 (07:14→21:04)
[2018-08-26 07:15] LABS: Absolute Lymphocyte Count 1.51 X10^3/ul (0.83-4.51); Absolute Neutrophil Count 6.3 X10^3/uL (2.0-7.7); Basophil# 0.03 X10^3/uL; Basophil% 0.4 % (0-1); Eosinophil# 0.14 X10^3/uL; Eosinophils% 1.6 % (0-5); Hemoglobin 10.9 g/dl (12.0-15.0); Lymphocyte # 1.51 X10^3/ul (4.0); Lymphocyte % 17.6 % (19-41); Mean Corp Hgb Conc 31.1 g/gl (32-36); Mean Corpuscular Hgb 27.7 pg (27.0-32.0); Mean Corpuscular Volume 89.1 fL (81-99); Mean Platelet Vol. 10.2 fl (6.2-12.0); Monocyte# 0.54 X10^3/uL; Monocyte% 6.3 % (0-10); Neutrophil # 6.33 X10^3/uL (2.7-7.7); Platelet Count 374 K/mm3 (150-450); RBC Distribution Width CV 13.3 % (11.6-14.6); RBC Distribution Width SD 43.5 fl (35.1-43.9); Red Blood Count 3.93 M/mm3 (4.2-5.4); White Blood Count 8.6 K/mm3 (4.4-11.0)
[2018-08-26] MEDS: Enoxaparin 40 MG/0.4 ML Syringe SC (07:16)
[2018-08-26] MEDS: Polyethylene Glycol 3350 17 GM PACKET PO (07:16)
[2018-08-26] MEDS: Gabapentin 800 MG Tablet PO ×2 (07:18→14:19)
[2018-08-26] MEDS: Pramipexole Di-HCl 0.5 MG Tablet 1.5 MG PO ×2 (07:18→18:12)
[2018-08-26] MEDS: Collagenase 30gm Tube 1 APPLIC TOPICAL (07:19)
[2018-08-26] MEDS: Pantoprazole Sodium 20 MG Tablet PO (07:19)
[2018-08-26] MEDS: Senna/Docusate Sodium 1 Tablet PO ×2 (07:20→18:13)
[2018-08-26] MEDS: metroNIDAZOLE 500 MG Tablet PO ×2 (07:21→14:24)
[2018-08-26] MEDS: Ascorbic Acid 500 MG Tablet PO ×2 (07:21→18:12)
[2018-08-26] MEDS: Smz/Tmp Ds Tablet 1 TABLET PO ×2 (07:21→18:16)
[2018-08-26 07:22] LABS: POSITIVE COUNT NO; POSITIVE DIFFERENTIAL NO; POSITIVE MORPHOLOGY NO
[2018-08-26] MEDS: Cephalexin 500 MG Capsule PO ×3 (07:22→20:39)
[2018-08-26 07:29] LABS: Anion Gap 7 (5-15); BUN 10 mg/dL (7-18); BUN/Creat Ratio 11.5 RATIO (10-20); Calcium,Total 8.7 mg/dL (8.5-10.1); Chloride 106 mmol/L (98-107); Creatinine, Serum 0.87 mg/dL (0.55-1.02); EST Glomerular Filtration Rate 72 mL/min (>60); Est Glom Filt Rate - Afr Amer 88 mL/min (>60); Estimated Creatinine Clearance 70.01 ml/min; Glucose 158 mg/dL (74-106); Sodium Level 139 mmol/L (136-145)
--- NOTE | 2018-08-26 08:02 | PCM.PN.SRG ---
Subjective: patient seen at bedside this morning. she has no complaints. She denies n/v/f/c. she does report twisting her right foot yesterday. she has pain to her right foot and ankle. Objective: patient is alert and orientated x 3. patient does not appear to be in any distress right foot with superficial, 4 mm noninfected ulceration. there is no drainage, no redness, no pain. ulceration appears stable and is improving. Left foot with full-thickness ulceration that has no drainage, no foul odor, no redness, no signs of infection. Wound has increased granulation tissue with use of wound vac. Wound presents with ~95% granulation tissue. no exposed bone. with deep probing of wound and manipulation of wound, there is no purulence or signs of abscess. patient does have pain to right ankle. there does not appear to be any bruising or dislocation. - Physical Exam Vital Signs Temp Pulse Resp BP Pulse Ox 98.5 F 77 16 115/56 L 96 08/25/18 16:00 08/25/18 16:00 08/25/18 16:00 08/25/18 16:00 08/25/18 16:00 Oxygen Delivery Method Room Air Weight: 88.706 kg Body Mass Index (BMI) 31.5 Intake and Output for Last 24 Hours 08/24/18 08/25/18 08/26/18 23:59 23:59 23:59 Intake Total 60 / 60 Balance 60 / 60 Laboratory Tests Past 24 Hrs 08/26/18 08/26/18 06:32 06:32 WBC 8.6 RBC 3.93 L Hgb 10.9 L Hct 35.0 L MCV 89.1 MCH 27.7 MCHC 31.1 L RDW 13.3 RDW Differential 43.5 Plt Count 374 MPV 10.2 Immature Gran % (Auto) 0.100 Neut % (Auto) 74.0 H Lymph % (Auto) 17.6 L [place] % (Auto) 6.3 Eos % (Auto) 1.6 Baso % (Auto) 0.4 Absolute Neuts (auto) 6.3 Absolute Lymphs (auto) 1.51 Total Counted Not Reportable Sodium 139 Potassium 4.0 Chloride 106 Carbon Dioxide 26.0 Anion Gap 7 BUN 10 Creatinine 0.87 Estim Creat Clear Calc 70.01 Est GFR (MDRD) Af Amer 88 Est GFR (MDRD) Non-Af 72 BUN/Creatinine Ratio 11.5 Glucose 158 H Calcium 8.7 POC Glucose 08/26/18 08/25/18 08/25/18 06:24 20:56 16:52 POC Glucose 127 H 105 115 H Medical Necessity - Tobacco Use Smoking Status: Never smoker Tobacco Use: Non-smoker Assessment/Plan All Active Problems Cellulitis (Acute) Diabetic foot ulcer associated with type 2 diabetes mellitus (Acute) Hepatitis B (Resolved) patient was examined and informed of current findings on exam, her right foot shows significant improvement. the rodriguez to this ulceration is staying off her foot. I want her to continue with peg assisted offloading boot and heel weightbearing to right foot. will continue with silvercel. her left foot ulceration shows increased granulation tissue with no signs of deep infection. she will continue to benefit from wound vac. Will have nursing apply wound vac every other day. wound vac will be set at 125 mm hg continuous. Will have nursing apply adaptic followed by mauro foam. wound vac is necessary to decrease size of wound and increase granulation tissue. once wound is superficial, consider switch to srinivas. patient did roll her right foot and ankle. will check xrays of right foot and ankle. will also order post-op xrays on left foot. will follow patient once weekly unless condition worsens requiring daily evaluation. nursing to apply dressing change to right foot daily .
--- NOTE | 2018-08-26 08:10 | RAD_ITS ---
STUDY: X-RAY - RIGHT ANKLE REASON FOR EXAM: Female, 53 years old. Injury. TECHNIQUE: 3 view(s) of the ankle. COMPARISON: None. FINDINGS: Normal visualized distal tibia and fibula. Degenerative changes the medial and lateral malleolus are present with cortical irregularity likely secondary to previous injury versus degenerative change. Early degenerative change of the anterior tibial talar joint is present. Normal visualized talus and calcaneus. Diffuse midfoot degenerative changes are present with large dorsal osteophyte formation and heterotopic ossification along the inferior aspect of the metatarsophalangeal joints and lateral metatarsal phalangeal joint is present. The soft tissue structures are unremarkable. RAD/Ankle min 3 Views IMPRESSION: Medial and lateral malleolus degenerative change and midfoot degenerative changes as above. No evidence of definitive acute fracture. Electronically Signed: Kyle Warren DO at 8:38 EST , Service support ,
--- NOTE | 2018-08-26 08:11 | RAD_ITS ---
STUDY: X-RAY - RIGHT FOOT CLINICAL: Female, 53 years old. Injury. TECHNIQUE: 3 view(s) of the foot. COMPARISON: 17 August 2018. FINDINGS: There is demineralization of the rear and midfoot bones. Diffuse degenerative changes of the midfoot are present with large dorsal osteophyte formation. Degenerative changes throughout the tarsal metatarsal joints are present with sclerosis and underlying lucencies. There is amputation of the proximal fifth metatarsal. Normal metatarsophalangeal joint of the great toe. Normal tibial and fibular sesamoid bones. Normal interphalangeal joint of the great toe. Normal phalanges of the great toe. Normal second through fifth metatarsophalangeal joints. Normal interphalangeal joints and phalanges of the lesser toes. The soft tissue structures are unremarkable. RAD/Foot min 3 Views IMPRESSION: Interval underlying lucencies of the tarsometatarsal joints particularly along the second and third metatarsal can be seen in May BE due to previous injury with acute on chronic injury not excluded. Underlying infectious etiology cannot be excluded. If concern for mid foot infection recommend MRI imaging versus nuclear medicine bone scan for further assessment. Additional degenerative changes as above. Electronically Signed: Kyle Warren DO at 8:55 EST , Service support ,
--- NOTE | 2018-08-26 08:12 | RAD_ITS ---
STUDY: X-RAY - LEFT FOOT CLINICAL: Female, 53 years old. Infection TECHNIQUE: 3 view(s) of the foot. COMPARISON: None. FINDINGS: There are status post amputation changes through the proximal shaft of the fifth metatarsal. There is a soft tissue defect at the surgical site. The remaining osseous structures and articular surfaces of the left foot appear intact. There is no soft tissue gas or radiopaque foreign body. RAD/Foot min 3 Views IMPRESSION: Status post amputation changes through the proximal shaft of the fifth metatarsal. Electronically Signed: Juanjo Antunez MD at 9:01 EST , Service support ,
[2018-08-26] MEDS: Insulin Lispro 100 UNIT/ML INSULN.PEN 15 UNIT SC ×3 (08:17→18:13)
[2018-08-26] MEDS: oxyCODONE 5 MG Tablet PO ×2 (08:31→14:20)
[2018-08-26] MEDS: Iron Polysaccharide Complex 150 MG CAPSULE PO (10:00)
[2018-08-26] MEDS: Tuberculin,Purif.prot.deriv. 50 TU/ML Vial 5 ML ID (10:01)
[2018-08-26 11:26] LABS: Bedside Glucose 338 mg/dL (70-110)
--- NOTE | 2018-08-26 14:23 | NURSING ---
dr castellon notified of pt refusing enema last night, new order for mag citrate x1.
[2018-08-26] MEDS: Magnesium Citrate 300 ML PO (15:49)
--- NOTE | 2018-08-26 15:59 | NURSING ---
Aware of Vitals at 1600 today
[2018-08-26 16:00] VITALS: BP 105/49; PULSE 81; RESP 14; TEMP 36.5; O2SAT 14
[2018-08-26 17:00] LABS: Bedside Glucose 240 mg/dL (70-110)
[2018-08-26] MEDS: Ondansetron ODT 4 MG Tablet PO (18:29)
[2018-08-26 19:26] LABS: Bedside Glucose 138 mg/dL (70-110)
[2018-08-26 20:00] VITALS: PULSE 68; RESP 18; O2SAT 94
--- NOTE | 2018-08-26 20:34 | NURSING ---
GIVEN SSE PER ORDER. PATIENT ABLE TO RETAIN 50O CC THEN STARTED TO EXPELL CLEAR SOLUTION. WILL CONT TO MONITOR. SAME REPORTED TO KELSIE STRINGER.
[2018-08-26 20:56] LABS: Bedside Glucose 69 mg/dL (70-110)
[2018-08-26 21:25] LABS: Bedside Glucose 112 mg/dL (70-110)
[2018-08-27] MEDS: oxyCODONE 5 MG Tablet PO (02:07)
[2018-08-27] MEDS: Ondansetron ODT 4 MG Tablet PO ×2 (02:55→08:52)
[2018-08-27] MEDS: Smz/Tmp Ds Tablet 1 TABLET PO ×2 (06:50→18:01)
[2018-08-27] MEDS: Gabapentin 800 MG Tablet PO ×3 (06:50→21:32)
[2018-08-27] MEDS: Cephalexin 500 MG Capsule PO ×3 (06:50→21:32)
[2018-08-27] MEDS: Pramipexole Di-HCl 0.5 MG Tablet 1.5 MG PO ×2 (06:50→18:01)
[2018-08-27] MEDS: Senna/Docusate Sodium 1 Tablet PO ×2 (06:51→18:01)
[2018-08-27] MEDS: metroNIDAZOLE 500 MG Tablet PO ×3 (06:52→21:31)
[2018-08-27] MEDS: Pantoprazole Sodium 20 MG Tablet PO (06:52)
[2018-08-27] MEDS: Glucerna Shake 120 ML LIQUID PO (06:52)
[2018-08-27] MEDS: Ascorbic Acid 500 MG Tablet PO (06:52)
[2018-08-27] MEDS: Enoxaparin 40 MG/0.4 ML Syringe SC (06:54)
[2018-08-27 06:55] LABS: Bedside Glucose 132 mg/dL (70-110)
[2018-08-27] MEDS: Polyethylene Glycol 3350 17 GM PACKET PO (06:55)
[2018-08-27] MEDS: Bisacodyl 5 MG Tablet 10 MG PO (08:52)
[2018-08-27] MEDS: Insulin Lispro 100 UNIT/ML INSULN.PEN 15 UNIT SC ×2 (08:57→18:00)
[2018-08-27] MEDS: Iron Polysaccharide Complex 150 MG CAPSULE PO (08:58)
[2018-08-27 09:06] LABS: Bedside Glucose 161 mg/dL (70-110)
--- NOTE | 2018-08-27 09:13 | NURSING ---
Addendum entered by Vivian Acharya Mannie 08/27/18 11:27: dr torres aware of results of KUB, new order for golytelty Original Note: Addendum entered by Vivian Acharya Mannie 08/27/18 09:35: Dr Torres notified, new order for KUB this AM Original Note: PT C/O NAUSEA D/T CONSTIPATION. REPORTS ZOFRAN GIVEN EARLIER WAS EFFECTIVE-REQUESTING MORE. ZOFRAN GIVEN. PT REPORTS ZOFRAN IS WORKING SO DULCOLAX GIVEN PO. AM MEDS GIVEN PER PT OK. PT ASSISTED TO BSC. AID INFORMED THIS NURSE THAT PT HAD EMESIS WHILE SITTING ON BSC. DR TORRES NOTIFIED OF PT'S CONSTIPATION THIS AM AND ORDERED A KUB. PT INFORMED. WILL MONITOR.
--- NOTE | 2018-08-27 09:38 | RAD_ITS ---
STUDY: X-RAY - ABDOMEN/PELVIS REASON FOR EXAM: Female, 53 years old. The patient TECHNIQUE: Single AP view of the abdomen / pelvis. COMPARISON: None. FINDINGS: Normal visualized lung bases. There is a moderate amount of colonic fecal material. There is no demonstrated free abdominal air. The liver is partially visualized. The renal silhouettes are mostly obscured. The symphysis pubis is out of the [id number] on this study. There are calcified phleboliths in the pelvis. There are diffuse degenerative changes of the visualized lumbar spine. RAD/Abdomen Single View IMPRESSION: Limited study.. Moderate constipation. Electronically Signed: Milli Haq MD at 10:00 EST Tel , Service support ,
[2018-08-27 11:41] LABS: Bedside Glucose 96 mg/dL (70-110)
[2018-08-27 12:35] LABS: Bedside Glucose 67 mg/dL (70-110)
[2018-08-27 13:31] LABS: Bedside Glucose 176 mg/dL (70-110)
[2018-08-27] MEDS: Electrolyte Solution/Peg's 4000 ML 2000 ML PO (14:46)
--- NOTE | 2018-08-27 14:50 | NURSING ---
RESTING IN BED. REPORTS SL LESS NAUSEA AFTER MED FIRM BM. STATES CONT TO FEEL SL CONSTIPATED. AGREEABLE TO STARTING NULYTELY. WILL CONT TO MONITOR.
[2018-08-27] MEDS: Acetaminophen 500 MG Tablet 1000 MG PO (15:54)
[2018-08-27 15:55] VITALS: BP 119/64; PULSE 90; RESP 16; TEMP 36.9; O2SAT 95
[2018-08-27 17:06] LABS: Bedside Glucose 244 mg/dL (70-110)
[2018-08-27 19:01] LABS: Bedside Glucose 205 mg/dL (70-110)
[2018-08-27] MEDS: proMETHazine 25 MG Tablet PO (19:59)
[2018-08-27 20:00] VITALS: PULSE 80; RESP 20; O2SAT 94
[2018-08-27 21:11] LABS: Bedside Glucose 106 mg/dL (70-110)
[2018-08-27] MEDS: Atorvastatin Calcium 80 MG Tablet PO (21:32)
[2018-08-28] MEDS: proMETHazine 25 MG Tablet PO (06:16)
[2018-08-28 06:45] LABS: Bedside Glucose 188 mg/dL (70-110)
--- NOTE | 2018-08-28 07:01 | NURSING ---
PATIENT NAUSEATED THIS AM AND REFUSED ALL 0600 MEDS. AGREED TO TAKE PHENERGAN AND WAIT AND THEN TAKE MEDS LATER. ALSO REQUESTED SOMETHING FOR ANXIETY. WAS ON SOMETHING IN THE PAST. FELT SOB RESP 18 HOB ELEVATED WITH EFFECT. SPO2 CHECKED IT WAS 98% PULSE WAS 85. WILL CONT TO MONITOR. SAME REPORTED TO SIOMARARN AND SANJAY RN
[2018-08-28] MEDS: Smz/Tmp Ds Tablet 1 TABLET PO (09:08)
[2018-08-28] MEDS: metroNIDAZOLE 500 MG Tablet PO (09:09)
[2018-08-28] MEDS: Cephalexin 500 MG Capsule PO ×3 (09:10→21:54)
[2018-08-28] MEDS: Polyethylene Glycol 3350 17 GM PACKET PO (09:10)
[2018-08-28] MEDS: Enoxaparin 40 MG/0.4 ML Syringe SC (09:10)
[2018-08-28] MEDS: Pramipexole Di-HCl 0.5 MG Tablet 1.5 MG PO ×3 (09:11→22:40)
[2018-08-28] MEDS: Gabapentin 800 MG Tablet PO ×3 (09:12→21:54)
[2018-08-28] MEDS: Ascorbic Acid 500 MG Tablet PO ×2 (09:13→17:23)
[2018-08-28] MEDS: Senna/Docusate Sodium 1 Tablet PO ×2 (09:13→17:23)
[2018-08-28] MEDS: Pantoprazole Sodium 20 MG Tablet PO (09:13)
[2018-08-28] MEDS: Iron Polysaccharide Complex 150 MG CAPSULE PO (09:14)
[2018-08-28] MEDS: Insulin Lispro 100 UNIT/ML INSULN.PEN 15 UNIT SC ×2 (09:15→17:29)
[2018-08-28] MEDS: oxyCODONE 5 MG Tablet PO ×2 (09:17→21:53)
--- NOTE | 2018-08-28 10:17 | NURSING ---
JERRISENIOR NATIONAL ACCOUNT MANAGER NURSE CHANGED PT WOUND VAC AND RIGHT FOOT DRESSING.
--- NOTE | 2018-08-28 10:33 | NURSING ---
new order for Hydroxyzine PRN for pt c/o anxiety.
--- NOTE | 2018-08-28 10:58 | PCM.PN.RX ---
<DalitriciaabdullahiGómez D - Last Filed: 08/28/18 10:58> Progress Note - Pharmacy Subjective: TCU Admission Objective: Allergies oxycodone [Oxycodone] Allergy (Verified 08/17/18 14:04) Rash oxycodone HCl [From OxyContin] Allergy (Verified 08/17/18 14:04) Rash Penicillins Allergy (Verified 08/17/18 14:04) Shortness of breath Current Medications Generic Name Dose Route Start Last Admin Trade Name Freq PRN Reason Stop Dose Admin Acetaminophen 1,000 mg 08/25/18 17:30 08/27/18 15:54 Tylenol PO 1,000 mg Q6H PRN Administration MILD PAIN (1-310) Ascorbic Acid 500 mg 08/25/18 18:00 08/28/18 09:13 Vitamin C PO 500 mg BID TAB Administration Atorvastatin Calcium 80 mg 08/25/18 22:00 08/27/18 21:32 Lipitor PO 80 mg QHS TAB Administration Bisacodyl 10 mg 08/25/18 17:30 08/27/18 08:52 Dulcolax PO 10 mg DAILY PRN PRN Administration Constipation Cephalexin 500 mg 08/26/18 07:00 08/28/18 09:10 Keflex PO 09/03/18 07:00 500 mg Q8 TAB Administration Enoxaparin Sodium 40 mg 08/26/18 06:00 08/28/18 09:10 Lovenox SC 40 mg DAILY@0600 TAB Administration Ergocalciferol 50,000 unit 08/27/18 06:00 08/27/18 06:52 Vitamin D PO 50,000 unit GRAY TAB Administration Gabapentin 800 mg 08/25/18 22:00 08/28/18 09:12 Neurontin PO 800 mg TID TAB Administration Hydroxyzine Pamoate 25 mg 08/28/18 10:45 Vistaril Pamoate Capsule PO Q6H PRN PRN ANXIETY Insulin Glargine 30 units 08/25/18 18:00 08/28/18 09:16 Lantus ([facility]) SC 30 u BID TAB Administration Insulin Human Lispro 15 unit 08/25/18 17:45 08/28/18 09:15 Humalog Kwikpen ([facility]) SC 15 u TIDCM TAB Administration Metronidazole 500 mg 08/26/18 07:00 08/28/18 09:09 Flagyl PO 09/03/18 07:00 500 mg TID TAB Administration Nutritional Formula 1 packet 08/25/18 17:00 08/28/18 09:14 Ted - [place] Flavor PO 1 packet BIDCM TAB Administration Nutritional Formula (Lactose Free) 120 ml 08/26/18 06:00 08/28/18 09:07 Glucerna Shake PO Not Given 4X/DAY TAB Ondansetron HCl 4 mg 08/25/18 18:33 08/27/18 08:52 Zofran Odt PO 4 mg Q6H PRN PRN Administration NAUSEA Oxycodone HCl 5 mg 08/25/18 17:29 08/27/18 02:07 Oxyir PO 5 mg Q4H PRN PRN Administration MODERATE PAIN (4-5/10) Pantoprazole Sodium 20 mg 08/26/18 06:00 08/28/18 09:13 Protonix PO 20 mg DAILY TAB Administration Polyethylene Glycol 17 gm 08/26/18 06:00 08/28/18 09:10 Miralax PO 17 gm DAILY [facility] Administration Polysaccharide Iron Complex 150 mg 08/26/18 09:30 08/28/18 09:14 Ferrex 150 PO 150 mg DAILYCM [facility] Administration Pramipexole Dihydrochloride 1.5 mg 08/25/18 18:00 08/28/18 09:11 Mirapex PO 1.5 mg BID TAB Administration Promethazine HCl 25 mg 08/27/18 15:59 08/28/18 06:16 Phenergan Tablet PO 25 mg Q6H PRN PRN Administration NAUSEA/VOMITING Senna/Docusate Sodium 1 tablet 08/25/18 18:00 08/28/18 09:13 Senokot-S, Natacha-Colace PO 1 tablet BID TAB Administration Trimethoprim/Sulfamethoxazole 1 tablet 08/26/18 07:00 08/28/18 09:08 Bactrim Ds PO 09/03/18 07:00 1 tablet BID TAB Administration Tuberculin PPD 5 tu 09/02/18 10:00 Tubersol, Aplisol, Ppd ID 09/02/18 10:01 X1 ONE Problem List Neuropathic pain (Chronic) GERD (gastroesophageal reflux disease) (Chronic) Hypomagnesemia (Chronic) Vital Signs Temp Pulse Resp BP Pulse Ox 98.5 F 80 20 H 119/64 94 08/27/18 15:55 08/27/18 20:00 08/27/18 20:00 08/27/18 15:55 08/27/18 20:00 Oxygen Delivery Method Room Air Weight: 88.706 kg Body Mass Index (BMI) 31.5 Sodium 139 mmol/L (136-145) 08/26/18 06:32 Potassium 4.0 mmol/L (3.5-5.1) 08/26/18 06:32 Chloride 106 mmol/L (98-107) 08/26/18 06:32 Carbon Dioxide 26.0 mmol/L (21.0-32.0) 08/26/18 06:32 Anion Gap 7 (5-15) 08/26/18 06:32 BUN 10 mg/dL (7-18) 08/26/18 06:32 Creatinine 0.87 mg/dL (0.55-1.02) 08/26/18 06:32 Est GFR (MDRD) Af Amer 88 mL/min (>60) 08/26/18 06:32 Est GFR (MDRD) Non-Af 72 mL/min (>60) 08/26/18 06:32 BUN/Creatinine Ratio 11.5 RATIO (10-20) 08/26/18 06:32 Glucose 158 mg/dL (74-106) H 08/26/18 06:32 Assessment/Plan: 1) Pain APAP for mild pain, oxycodone for moderate pain, gabapentin. Continue to monitor prn medication use, daily pain scores. 2) DM2 Insulin glargine twice daily, lispro with meals, atorvastatin. Continue to monitor BGT, s/s hyper/hypoglycemia, lipids. 3) ID Cephalexin, SMX/TMP, metronidazole. ID following. Continue to monitor renal function, electrolytes, s/s infection. 4) GI Pantoprazole daily, ondansetron prn, promethazine prn. Continue to monitor prn medication use, s/s GI distress. 5) Nutrition Ted, Fe, Glucerna, D, C. Continue to monitor clinically. 6) DVT PPx Enoxaparin daily. Continue to monitor s/s bleeding/clot. 7) RLS Pramipexole. Continue to monitor for restless legs. Psychotropic Medications: None Unnecessary Medications: None Bowel Regimen: 8) Senna/s, PEG, prn bisacodyl. Continue to monitor prn medication use, for constipation/diarrhea. Date of Note:: 08/28/18 - Provider Comments Provider responsibility: Provider responsible to enter orders to implement recommendations <Chauncey Hassan Chi - Last Filed: 08/28/18 18:02> Progress Note - Pharmacy Subjective: [] Objective: Allergies oxycodone [Oxycodone] Allergy (Verified 08/17/18 14:04) Rash oxycodone HCl [From OxyContin] Allergy (Verified 08/17/18 14:04) Rash Penicillins Allergy (Verified 08/17/18 14:04) Shortness of breath Current Medications Generic Name Dose Route Start Last Admin Trade Name Freq PRN Reason Stop Dose Admin Acetaminophen 1,000 mg 08/25/18 17:30 08/27/18 15:54 Tylenol PO 1,000 mg Q6H PRN Administration MILD PAIN (1-3/10) Ascorbic Acid 500 mg 08/25/18 18:00 08/28/18 17:23 Vitamin C PO 500 mg BID TAB Administration Atorvastatin Calcium 80 mg 08/25/18 22:00 08/27/18 21:32 Lipitor PO 80 mg QHS TAB Administration Bisacodyl 10 mg 08/25/18 17:30 08/27/18 08:52 Dulcolax PO 10 mg DAILY PRN PRN Administration Constipation Cephalexin 500 mg 08/26/18 07:00 08/28/18 17:19 Keflex PO 09/03/18 07:00 500 mg Q8 TAB Administration Enoxaparin Sodium 40 mg 08/26/18 06:00 08/28/18 09:10 Lovenox SC 40 mg DAILY@0600 TAB Administration Ergocalciferol 50,000 unit 08/27/18 06:00 08/27/18 06:52 Vitamin D PO 50,000 unit GRAY TAB Administration Gabapentin 800 mg 08/25/18 22:00 08/28/18 17:20 Neurontin PO 800 mg TID TAB Administration Hydroxyzine Pamoate 25 mg 08/28/18 10:45 Vistaril Pamoate Capsule PO Q6H PRN PRN ANXIETY Sodium Chloride 1,000 mls @ 100 mls/hr 08/28/18 12:15 08/28/18 15:17 IV 100 mls/hr .Q10H TAB Administration Insulin Glargine 30 units 08/25/18 18:00 08/28/18 17:30 Lantus ([facility]) SC 30 u BID TAB Administration Insulin Human Lispro 15 unit 08/25/18 17:45 08/28/18 17:29 Humalog Kwikpen ([facility]) SC 15 u TIDCM TAB Administration Metoclopramide HCl 10 mg 08/28/18 12:30 08/28/18 15:34 Reglan IV 08/30/18 14:00 10 mg ACHS TAB Administration Nutritional Formula 1 packet 08/25/18 17:00 08/28/18 17:21 Ted - [place] Flavor PO 1 packet BIDCM [facility] Administration Nutritional Formula (Lactose Free) 120 ml 08/26/18 06:00 08/28/18 17:21 Glucerna Shake PO Not Given 4X/DAY [facility] Ondansetron HCl 4 mg 08/25/18 18:33 08/28/18 11:04 Zofran Odt PO 4 mg Q6H PRN PRN Administration NAUSEA Oxycodone HCl 5 mg 08/25/18 17:29 08/28/18 09:17 Oxyir PO 5 mg Q4H PRN PRN Administration MODERATE PAIN (4-5/10) Pantoprazole Sodium 20 mg 08/26/18 06:00 08/28/18 09:13 Protonix PO 20 mg DAILY [facility] Administration Polyethylene Glycol 17 gm 08/26/18 06:00 08/28/18 09:10 Miralax PO 17 gm DAILY [facility] Administration Polysaccharide Iron Complex 150 mg 08/26/18 09:30 08/28/18 09:14 Ferrex 150 PO 150 mg DAILYCM [facility] Administration Pramipexole Dihydrochloride 1.5 mg 08/25/18 18:00 08/28/18 17:22 Mirapex PO 1.5 mg BID [facility] Administration Promethazine HCl 25 mg 08/27/18 15:59 08/28/18 06:16 Phenergan Tablet PO 25 mg Q6H PRN PRN Administration NAUSEA/VOMITING Senna/Docusate Sodium 1 tablet 08/25/18 18:00 08/28/18 17:23 Senokot-S, Natacha-Colace PO 1 tablet BID TAB Administration Tuberculin PPD 5 tu 09/02/18 10:00 Tubersol, Aplisol, Ppd ID 09/02/18 10:01 X1 ONE Problem List Neuropathic pain (Chronic) GERD (gastroesophageal reflux disease) (Chronic) Hypomagnesemia (Chronic) Vital Signs Temp Pulse Resp BP Pulse Ox 98.3 F 93 20 H 114/62 93 08/28/18 15:50 08/28/18 15:50 08/28/18 15:50 08/28/18 15:50 08/28/18 15:50 Oxygen Delivery Method Room Air Weight: 88.706 kg Body Mass Index (BMI) 31.5 Sodium 139 mmol/L (136-145) 08/26/18 06:32 Potassium 4.0 mmol/L (3.5-5.1) 08/26/18 06:32 Chloride 106 mmol/L (98-107) 08/26/18 06:32 Carbon Dioxide 26.0 mmol/L (21.0-32.0) 08/26/18 06:32 Anion Gap 7 (5-15) 08/26/18 06:32 BUN 10 mg/dL (7-18) 08/26/18 06:32 Creatinine 0.87 mg/dL (0.55-1.02) 08/26/18 06:32 Est GFR (MDRD) Af Amer 88 mL/min (>60) 08/26/18 06:32 Est GFR (MDRD) Non-Af 72 mL/min (>60) 08/26/18 06:32 BUN/Creatinine Ratio 11.5 RATIO (10-20) 08/26/18 06:32 Glucose 158 mg/dL (74-106) H 08/26/18 06:32 Assessment/Plan: Psychotropic Medications: Unnecessary Medications: Bowel Regimen: - Provider Comments Provider responsibility: Provider responsible to enter orders to implement recommendations Provider Comments to Recommendations by Pharmacy: Agree
[2018-08-28] MEDS: Ondansetron ODT 4 MG Tablet PO ×2 (11:04→21:53)
--- NOTE | 2018-08-28 11:04 | PHA.CONS_ITS ---
<DalitriciaabdullahiGómez D - Last Filed: 08/28/18 10:58> Progress Note - Pharmacy Subjective: TCU Admission Objective: Allergies oxycodone [Oxycodone] Allergy (Verified 08/17/18 14:04) Rash oxycodone HCl [From OxyContin] Allergy (Verified 08/17/18 14:04) Rash Penicillins Allergy (Verified 08/17/18 14:04) Shortness of breath Current Medications Generic Name Dose Route Start Last Admin Trade Name Freq PRN Reason Stop Dose Admin Acetaminophen 1,000 mg 08/25/18 17:30 08/27/18 15:54 Tylenol PO 1,000 mg Q6H PRN Administration MILD PAIN (1-310) Ascorbic Acid 500 mg 08/25/18 18:00 08/28/18 09:13 Vitamin C PO 500 mg BID TAB Administration Atorvastatin Calcium 80 mg 08/25/18 22:00 08/27/18 21:32 Lipitor PO 80 mg QHS TAB Administration Bisacodyl 10 mg 08/25/18 17:30 08/27/18 08:52 Dulcolax PO 10 mg DAILY PRN PRN Administration Constipation Cephalexin 500 mg 08/26/18 07:00 08/28/18 09:10 Keflex PO 09/03/18 07:00 500 mg Q8 TAB Administration Enoxaparin Sodium 40 mg 08/26/18 06:00 08/28/18 09:10 Lovenox SC 40 mg DAILY@0600 TAB Administration Ergocalciferol 50,000 unit 08/27/18 06:00 08/27/18 06:52 Vitamin D PO 50,000 unit GRAY TAB Administration Gabapentin 800 mg 08/25/18 22:00 08/28/18 09:12 Neurontin PO 800 mg TID TAB Administration Hydroxyzine Pamoate 25 mg 08/28/18 10:45 Vistaril Pamoate Capsule PO Q6H PRN PRN ANXIETY Insulin Glargine 30 units 08/25/18 18:00 08/28/18 09:16 Lantus ([facility]) SC 30 u BID TAB Administration Insulin Human Lispro 15 unit 08/25/18 17:45 08/28/18 09:15 Humalog Kwikpen ([facility]) SC 15 u TIDCM TAB Administration Metronidazole 500 mg 08/26/18 07:00 08/28/18 09:09 Flagyl PO 09/03/18 07:00 500 mg TID TAB Administration Nutritional Formula 1 packet 08/25/18 17:00 08/28/18 09:14 Ted - [place] Flavor PO 1 packet BIDCM TAB Administration Nutritional Formula (Lactose Free) 120 ml 08/26/18 06:00 08/28/18 09:07 Glucerna Shake PO Not Given 4X/DAY TAB Ondansetron HCl 4 mg 08/25/18 18:33 08/27/18 08:52 Zofran Odt PO 4 mg Q6H PRN PRN Administration NAUSEA Oxycodone HCl 5 mg 08/25/18 17:29 08/27/18 02:07 Oxyir PO 5 mg Q4H PRN PRN Administration MODERATE PAIN (4-5/10) Pantoprazole Sodium 20 mg 08/26/18 06:00 08/28/18 09:13 Protonix PO 20 mg DAILY TAB Administration Polyethylene Glycol 17 gm 08/26/18 06:00 08/28/18 09:10 Miralax PO 17 gm DAILY [facility] Administration Polysaccharide Iron Complex 150 mg 08/26/18 09:30 08/28/18 09:14 Ferrex 150 PO 150 mg DAILYCM [facility] Administration Pramipexole Dihydrochloride 1.5 mg 08/25/18 18:00 08/28/18 09:11 Mirapex PO 1.5 mg BID TAB Administration Promethazine HCl 25 mg 08/27/18 15:59 08/28/18 06:16 Phenergan Tablet PO 25 mg Q6H PRN PRN Administration NAUSEA/VOMITING Senna/Docusate Sodium 1 tablet 08/25/18 18:00 08/28/18 09:13 Senokot-S, Natacha-Colace PO 1 tablet BID TAB Administration Trimethoprim/Sulfamethoxazole 1 tablet 08/26/18 07:00 08/28/18 09:08 Bactrim Ds PO 09/03/18 07:00 1 tablet BID TAB Administration Tuberculin PPD 5 tu 09/02/18 10:00 Tubersol, Aplisol, Ppd ID 09/02/18 10:01 X1 ONE Problem List Neuropathic pain (Chronic) GERD (gastroesophageal reflux disease) (Chronic) Hypomagnesemia (Chronic) Vital Signs Temp Pulse Resp BP Pulse Ox 98.5 F 80 20 H 119/64 94 08/27/18 15:55 08/27/18 20:00 08/27/18 20:00 08/27/18 15:55 08/27/18 20:00 Oxygen Delivery Method Room Air Weight: 88.706 kg Body Mass Index (BMI) 31.5 Sodium 139 mmol/L (136-145) 08/26/18 06:32 Potassium 4.0 mmol/L (3.5-5.1) 08/26/18 06:32 Chloride 106 mmol/L (98-107) 08/26/18 06:32 Carbon Dioxide 26.0 mmol/L (21.0-32.0) 08/26/18 06:32 Anion Gap 7 (5-15) 08/26/18 06:32 BUN 10 mg/dL (7-18) 08/26/18 06:32 Creatinine 0.87 mg/dL (0.55-1.02) 08/26/18 06:32 Est GFR (MDRD) Af Amer 88 mL/min (>60) 08/26/18 06:32 Est GFR (MDRD) Non-Af 72 mL/min (>60) 08/26/18 06:32 BUN/Creatinine Ratio 11.5 RATIO (10-20) 08/26/18 06:32 Glucose 158 mg/dL (74-106) H 08/26/18 06:32 Assessment/Plan: 1) Pain APAP for mild pain, oxycodone for moderate pain, gabapentin. Continue to monitor prn medication use, daily pain scores. 2) DM2 Insulin glargine twice daily, lispro with meals, atorvastatin. Continue to monitor BGT, s/s hyper/hypoglycemia, lipids. 3) ID Cephalexin, SMX/TMP, metronidazole. ID following. Continue to monitor renal function, electrolytes, s/s infection. 4) GI Pantoprazole daily, ondansetron prn, promethazine prn. Continue to monitor prn medication use, s/s GI distress. 5) Nutrition Ted, Fe, Glucerna, D, C. Continue to monitor clinically. 6) DVT PPx Enoxaparin daily. Continue to monitor s/s bleeding/clot. 7) RLS Pramipexole. Continue to monitor for restless legs. Psychotropic Medications: None Unnecessary Medications: None Bowel Regimen: 8) Senna/s, PEG, prn bisacodyl. Continue to monitor prn medication use, for constipation/diarrhea. Date of Note:: 08/28/18 - Provider Comments Provider responsibility: Provider responsible to enter orders to implement recommendations <Chauncey Hassan Chi - Last Filed: 08/28/18 18:02> Progress Note - Pharmacy Subjective: [] Objective: Allergies oxycodone [Oxycodone] Allergy (Verified 08/17/18 14:04) Rash oxycodone HCl [From OxyContin] Allergy (Verified 08/17/18 14:04) Rash Penicillins Allergy (Verified 08/17/18 14:04) Shortness of breath Current Medications Generic Name Dose Route Start Last Admin Trade Name Freq PRN Reason Stop Dose Admin Acetaminophen 1,000 mg 08/25/18 17:30 08/27/18 15:54 Tylenol PO 1,000 mg Q6H PRN Administration MILD PAIN (1-3/10) Ascorbic Acid 500 mg 08/25/18 18:00 08/28/18 17:23 Vitamin C PO 500 mg BID TAB Administration Atorvastatin Calcium 80 mg 08/25/18 22:00 08/27/18 21:32 Lipitor PO 80 mg QHS TAB Administration Bisacodyl 10 mg 08/25/18 17:30 08/27/18 08:52 Dulcolax PO 10 mg DAILY PRN PRN Administration Constipation Cephalexin 500 mg 08/26/18 07:00 08/28/18 17:19 Keflex PO 09/03/18 07:00 500 mg Q8 TAB Administration Enoxaparin Sodium 40 mg 08/26/18 06:00 08/28/18 09:10 Lovenox SC 40 mg DAILY@0600 TAB Administration Ergocalciferol 50,000 unit 08/27/18 06:00 08/27/18 06:52 Vitamin D PO 50,000 unit GRAY TAB Administration Gabapentin 800 mg 08/25/18 22:00 08/28/18 17:20 Neurontin PO 800 mg TID TAB Administration Hydroxyzine Pamoate 25 mg 08/28/18 10:45 Vistaril Pamoate Capsule PO Q6H PRN PRN ANXIETY Sodium Chloride 1,000 mls @ 100 mls/hr 08/28/18 12:15 08/28/18 15:17 IV 100 mls/hr .Q10H TAB Administration Insulin Glargine 30 units 08/25/18 18:00 08/28/18 17:30 Lantus ([facility]) SC 30 u BID TAB Administration Insulin Human Lispro 15 unit 08/25/18 17:45 08/28/18 17:29 Humalog Kwikpen ([facility]) SC 15 u TIDCM TAB Administration Metoclopramide HCl 10 mg 08/28/18 12:30 08/28/18 15:34 Reglan IV 08/30/18 14:00 10 mg ACHS TAB Administration Nutritional Formula 1 packet 08/25/18 17:00 08/28/18 17:21 Ted - [place] Flavor PO 1 packet BIDCM [facility] Administration Nutritional Formula (Lactose Free) 120 ml 08/26/18 06:00 08/28/18 17:21 Glucerna Shake PO Not Given 4X/DAY [facility] Ondansetron HCl 4 mg 08/25/18 18:33 08/28/18 11:04 Zofran Odt PO 4 mg Q6H PRN PRN Administration NAUSEA Oxycodone HCl 5 mg 08/25/18 17:29 08/28/18 09:17 Oxyir PO 5 mg Q4H PRN PRN Administration MODERATE PAIN (4-5/10) Pantoprazole Sodium 20 mg 08/26/18 06:00 08/28/18 09:13 Protonix PO 20 mg DAILY [facility] Administration Polyethylene Glycol 17 gm 08/26/18 06:00 08/28/18 09:10 Miralax PO 17 gm DAILY [facility] Administration Polysaccharide Iron Complex 150 mg 08/26/18 09:30 08/28/18 09:14 Ferrex 150 PO 150 mg DAILYCM [facility] Administration Pramipexole Dihydrochloride 1.5 mg 08/25/18 18:00 08/28/18 17:22 Mirapex PO 1.5 mg BID [facility] Administration Promethazine HCl 25 mg 08/27/18 15:59 08/28/18 06:16 Phenergan Tablet PO 25 mg Q6H PRN PRN Administration NAUSEA/VOMITING Senna/Docusate Sodium 1 tablet 08/25/18 18:00 08/28/18 17:23 Senokot-S, Natacha-Colace PO 1 tablet BID TAB Administration Tuberculin PPD 5 tu 09/02/18 10:00 Tubersol, Aplisol, Ppd ID 09/02/18 10:01 X1 ONE Problem List Neuropathic pain (Chronic) GERD (gastroesophageal reflux disease) (Chronic) Hypomagnesemia (Chronic) Vital Signs Temp Pulse Resp BP Pulse Ox 98.3 F 93 20 H 114/62 93 08/28/18 15:50 08/28/18 15:50 08/28/18 15:50 08/28/18 15:50 08/28/18 15:50 Oxygen Delivery Method Room Air Weight: 88.706 kg Body Mass Index (BMI) 31.5 Sodium 139 mmol/L (136-145) 08/26/18 06:32 Potassium 4.0 mmol/L (3.5-5.1) 08/26/18 06:32 Chloride 106 mmol/L (98-107) 08/26/18 06:32 Carbon Dioxide 26.0 mmol/L (21.0-32.0) 08/26/18 06:32 Anion Gap 7 (5-15) 08/26/18 06:32 BUN 10 mg/dL (7-18) 08/26/18 06:32 Creatinine 0.87 mg/dL (0.55-1.02) 08/26/18 06:32 Est GFR (MDRD) Af Amer 88 mL/min (>60) 08/26/18 06:32 Est GFR (MDRD) Non-Af 72 mL/min (>60) 08/26/18 06:32 BUN/Creatinine Ratio 11.5 RATIO (10-20) 08/26/18 06:32 Glucose 158 mg/dL (74-106) H 08/26/18 06:32 Assessment/Plan: Psychotropic Medications: Unnecessary Medications: Bowel Regimen: - Provider Comments Provider responsibility: Provider responsible to enter orders to implement recommendations Provider Comments to Recommendations by Pharmacy: Agree
--- NOTE | 2018-08-28 11:08 | NURSING ---
Per Tiffany, wound nurse, wound vac will be changed qMWF.
--- NOTE | 2018-08-28 11:14 | NURSING ---
PT HAS THREW UP ALL HER MEDS AND GLUCERNA THAT CAME ON TRAY. BLOOD SUGAR CHECKED. PT STATES SHE FEELS NAUSEATED. PRN GIVEN. KELSIE MCCAULEY AWARE
[2018-08-28 11:16] LABS: Bedside Glucose 140 mg/dL (70-110)
--- NOTE | 2018-08-28 12:17 | NURSING ---
Pt having nausea and vomiting, 4 episodes of emesis today. Unable to keep food, fluids or meds down. Phenergan and zofran ineffective. Dr. Hassan notified, NO for IV NS @ 60mL/hr and IV reglan 10mg IV qACHS x 2 days. Patient updated.
[2018-08-28] MEDS: 0.9% Normal Saline 1,000 ML 100 ML IV (15:17)
[2018-08-28] MEDS: Metoclopramide 10 MG/2 ML Vial IV ×3 (15:34→21:59)
--- NOTE | 2018-08-28 15:36 | NURSING ---
22g IV inserted into right wrist, patient tolerated well. Dr. Allen called, xray's reviewed, patient to be NWB to left foot and heel weight bearing to right foot. Patient to wear boot she has in her room while out of bed and for therapy. Dr. Allen to come in tonight to see patient. Patient up in bed eating lunch, feeling better. IVF running. Will continue to monitor.
--- NOTE | 2018-08-28 15:41 | NURSING ---
D/T nausea and vomiting, Dr. Omer benoit'c'cy flagyl and bactrim. Patient updated.
[2018-08-28 15:50] VITALS: BP 114/62; PULSE 93; RESP 20; TEMP 36.8; O2SAT 93
--- NOTE | 2018-08-28 15:53 | NURSING ---
wound photo: left foot
--- NOTE | 2018-08-28 15:53 | NURSING ---
wound photo: right foot
--- NOTE | 2018-08-28 16:07 | NURSING ---
PT REFUSING 1400 MEDS UNTIL SHE FEELS BETTER AND CAN KEEP THEM DOWN,PER PT STATEMENT
[2018-08-28 16:56] LABS: Bedside Glucose 241 mg/dL (70-110)
--- NOTE | 2018-08-28 17:33 | NURSING ---
PT FEELING MUCH BETTER. WAS ABLE TO EAT AND KEEP IT DOWN. MEDS GIVEN. PT TALKING AND HAPPIER.
--- NOTE | 2018-08-28 18:22 | NURSING ---
NO for lexapro 10mg PO daily.
--- NOTE | 2018-08-28 19:31 | PCM.PN.SRG ---
Subjective: Patient seen at bedside this evening. had some upset stomach issues earlier but that has since resolved. patient has no pain to her feet. Patient did twist her right foot over weekend and has xrays to review. Objective: alert and orientated x 3. no acute distress left foot has wound vac in place. reviewed picture from notes. it appears nice and granular without signs of infection. right foot has very superficial ulceration. The ulceration appears to be healing without signs of infection. there is no redness or drainage. Right foot appears stable. xrays of right foot and ankle reviewed. there is arthritic changes of right ankle. no fracture. xrays of right foot have concerns of new lucency of metatarsals. xrays of left foot show no signs of infection. - Physical Exam Vital Signs Temp Pulse Resp BP Pulse Ox 98.3 F 93 20 H 114/62 93 08/28/18 15:50 08/28/18 15:50 08/28/18 15:50 08/28/18 15:50 08/28/18 15:50 Oxygen Delivery Method Room Air Weight: 88.706 kg Body Mass Index (BMI) 31.5 Intake and Output for Last 24 Hours 08/26/18 08/27/18 08/28/18 23:59 23:59 23:59 Intake Total 720 / 720 600 / 600 560 / 560 Balance 720 / 720 600 / 600 560 / 560 POC Glucose 08/28/18 08/28/18 08/28/18 16:45 10:58 06:23 POC Glucose 241 H 140 H 188 H 08/27/18 21:06 POC Glucose 106 Medical Necessity - Tobacco Use Smoking Status: Never smoker Tobacco Use: Non-smoker Assessment/Plan All Active Problems Cellulitis (Acute) Diabetic foot ulcer associated with type 2 diabetes mellitus (Acute) Hepatitis B (Resolved) patient left foot reviewed with chart review. pictures today show healing without signs of infection. no nonviable tissue present. will continue wound wound vac and antibiotics per id. right foot ulceration appears to be healing nicely. there are no signs of infection. reviewed xray. xray shows new lucency. this new findings could be related to infection vs charcot vs recent injury. recommend continued offloading boot. while infection of bone is possible, the ulceration is almost healed and clinically there are no signs of infection. I recommend mri to further evaluate. will also discuss with radiology to discuss her case clinically.
[2018-08-28 21:26] LABS: Bedside Glucose 262 mg/dL (70-110)
[2018-08-28] MEDS: Atorvastatin Calcium 80 MG Tablet PO (21:54)
[2018-08-28 22:00] VITALS: PULSE 74; RESP 18; O2SAT 94
--- NOTE | 2018-08-28 23:53 | NURSING ---
Pts IV was d/c'd d/t leaking. Pt does not want another IV inserted at this time. Dr. Hassna aware and new order to DC IV fluids.
--- NOTE | 2018-08-29 00:29 | NURSING ---
Pt c/o restless legs, kicking both legs up to mid section, lying in bed on stomach kicking legs behind her in the air. Moaning and yelling loudly, kicking bed side table and trash can. RN aware, Dr. Hassan called, and pt given extra dose of 1.5mg mirapex per request at 2250, after prn oxyir 5mg was ineffective an hour earlier. Pt stated it takes one hour to work. Was observed by multiple staff members getting out of bed alone without calling for assistance, balancing on one leg while kicking the other, putting weight on both heels which are wrapped in dressings/wound vac, and lying in bed completely sideways with feet and upper body dangling from sides. Pt did not want to listen to staff who asked her to please call for assistance and to try and relax in bed. Pt is requiring constant monitoring for safety. RN aware, continuing to monitor and encourage rest.
[2018-08-29] MEDS: Glucerna Shake 120 ML LIQUID PO ×4 (06:27→20:16)
[2018-08-29] MEDS: Escitalopram Oxalate 10 MG Tablet PO (06:28)
[2018-08-29] MEDS: Enoxaparin 40 MG/0.4 ML Syringe SC (06:28)
[2018-08-29] MEDS: Cephalexin 500 MG Capsule PO ×3 (06:28→20:18)
[2018-08-29] MEDS: Pantoprazole Sodium 20 MG Tablet PO (06:29)
[2018-08-29] MEDS: Ascorbic Acid 500 MG Tablet PO ×2 (06:29→18:54)
[2018-08-29] MEDS: Gabapentin 800 MG Tablet PO ×3 (06:29→20:19)
[2018-08-29] MEDS: Senna/Docusate Sodium 1 Tablet PO (06:29)
[2018-08-29 06:46] LABS: Bedside Glucose 107 mg/dL (70-110)
[2018-08-29] MEDS: Insulin Lispro 100 UNIT/ML INSULN.PEN 15 UNIT SC ×3 (07:59→18:55)
[2018-08-29] MEDS: Iron Polysaccharide Complex 150 MG CAPSULE PO (07:59)
--- NOTE | 2018-08-29 09:30 | NURSING ---
OFF UNIT AT MRI OF FOOT
--- NOTE | 2018-08-29 10:42 | PCM.PN.ID ---
Subjective: Was having n/v yesterday, bactrim and flagyl stopped, sx improved this AM. C/o blurry vision. No fever. - Physical Exam General: Alert, Cooperative, No apparent distress Lungs: Clear to auscultation, Normal air movement Cardiovascular: Regular rate, Regular Rhythm Abdomen: Soft, Non Tender, Non-Distended Skin: Incision - foot wrapped Vital Signs Temp Pulse Resp BP Pulse Ox 98.3 F 74 18 114/62 94 08/28/18 15:50 08/28/18 22:00 08/28/18 22:00 08/28/18 15:50 08/28/18 22:00 Oxygen Delivery Method Room Air Weight: 88.706 kg Body Mass Index (BMI) 31.5 Intake and Output for Last 24 Hours 08/27/18 08/28/18 08/29/18 23:59 23:59 23:59 Intake Total 600 / 600 560 / 560 240 / 240 Balance 600 / 600 560 / 560 240 / 240 POC Glucose 08/29/18 08/28/18 08/28/18 06:39 21:13 16:45 POC Glucose 107 262 H 241 H 08/28/18 10:58 POC Glucose 140 H Medical Necessity - Tobacco Use Smoking Status: Never smoker Tobacco Use: Non-smoker Route of nutrition/ use of supplements: [] Nutritional Intake: [] IV Site: [] Tirado Catheter: [] - Assessment/Plan Antibiotics: [] Assessment/Plan: [] L foot MSSA abscess with uncontrolled DM and neuropathy - recent cx with MSSA and GBS. Cx here with same so far. MRSA pcr neg. Taken to OR 08/[address] Allen with pus drained and bone bx sent. No osteo seen on MRI. Stopped bactrim/flagyl due to n/v, continue keflex with stop date 09/02/18. Will follow
[2018-08-29] MEDS: Pramipexole Di-HCl 0.5 MG Tablet 1.5 MG PO (11:02)
--- NOTE | 2018-08-29 11:10 | CASEMGMT ---
Addendum entered by Danette Moss 08/29/18 11:56: Reviewed and approved social work student MDS documentation. ERIN Vargas, FINANCIAL INVESTMENT MANAGER Original Note: Brief interview for mental status (BIMS) and mood (PHQ-9) completed on this day. BIMS score 14/15. PHQ-9 score 8/25. Ginger Levine social work student
[2018-08-29 11:21] LABS: Bedside Glucose 301 mg/dL (70-110)
[2018-08-29] MEDS: oxyCODONE 5 MG Tablet PO ×2 (12:01→18:34)
--- NOTE | 2018-08-29 12:15 | NURSING ---
Addendum entered by Vivian Patrizia Mannie 08/29/18 15:36: AFTER REVIEWING MEDICATIONS, NOTIFIED DR TORRES OF PT TAKING [facility] THERAPEUTIC INTERCHANGE OF MIRAPEX IN PLACE OF HER REQUIP. PER PHARMACOLOGY SIDE EFFECT SHOWS VISION CHANGES. NEW ORDER TO RESTART HOME MEDICATION. PHARMACY NOTIFIED AND WILL ORDER Original Note: PT C/O BLURRY VISION, APPARENTLY IT HAS BEEN HAPPENING FOR SEVERAL DAYS. PT VERY VAGUE. PT REPORTS THAT SHE HAS APPT MADE WITH EYE DR TOMORROW AT [address] [place] [address] TORRES MADE AWARE, NO NEW ORDERS. NEUROCHECK DONE & WNL'S. PT RESTING IN BED, CALL LIGHT IN REACH.
--- NOTE | 2018-08-29 13:57 | CASEMGMT ---
Plan of care meeting held. Resident present. No discharge date set at this time. Resident to continue with further care and treatment on the Transitional Care Unit. Resident plans to discharge to home alone. Support given. Will continue to follow. ERIN Vargas, PROOF CLERK
--- NOTE | 2018-08-29 14:27 | NURSING ---
Addendum entered by Vivian Chand 08/29/18 18:49: pt being transferred to [facility], waiting on room then will set up transport. Boot wounds on bilat feet were dressed with aquacel AG and wrapped with alison for transfer. wound vac removed from lt foot. Original Note: Addendum entered by Vivian Chand 08/29/18 17:45: dr king here assessing pts wounds on both feet. reviewed MRI. may be transferring to [facility] Original Note: FAXED MRI RESULTS TO DR KING AT THIS TIME
[2018-08-29 15:49] VITALS: BP 110/59; PULSE 90; RESP 18; TEMP 36.8; O2SAT 95
[2018-08-29 17:01] LABS: Bedside Glucose 165 mg/dL (70-110)
--- NOTE | 2018-08-29 18:32 | PCM.PN.SRG ---
Subjective: Patient is seen at bedside this afternoon. Patient pain is controlled on medication. patient denies n/v/f/c. she does have diarrhea. she is tolerating keflex for left foot infection. she does have new mri of right foot to review. she has no other podiatry complaints. she does complain of blurred vision. Objective: patient is alert and orientated x 3. She does not appear to be in any distress. Vascular: DP and PT pulses are palpable b/l. CFT is less than 5 seconds. skin temperature is warm to warm. Derm: there is eschar to right foot that does not appear clinically infected. ulceration was sharply debrided thru dermis and epidermis with 15 blade. there is no purulence or signs of infection. left foot has large full thickness ulceration with mostly granulation tissue. no purulence is noted. no bone is exposed to left foot. m/s: there is b/l 5th ray amputation with plantar prominence consistent with charcot history b/l. MRI reviewed of right foot. no evidence of osteomyelitis. there is fluid collection to plantar 5th metatarsal base concerning for abscess. - Physical Exam Vital Signs Temp Pulse Resp BP Pulse Ox 98.2 F 90 18 110/59 L 95 08/29/18 15:49 08/29/18 15:49 08/29/18 15:49 08/29/18 15:49 08/29/18 15:49 Oxygen Delivery Method Room Air Weight: 86.381 kg Body Mass Index (BMI) 31.5 Intake and Output for Last 24 Hours 08/27/18 08/28/18 08/29/18 23:59 23:59 23:59 Intake Total 600 / 600 560 / 560 360 / 360 Balance 600 / 600 560 / 560 360 / 360 POC Glucose 08/29/18 08/29/18 08/29/18 16:57 11:09 06:39 POC Glucose 165 H 301 H 107 08/28/18 21:13 POC Glucose 262 H Medical Necessity - Tobacco Use Smoking Status: Never smoker Tobacco Use: Non-smoker Assessment/Plan All Active Problems Cellulitis (Acute) Diabetic foot ulcer associated with type 2 diabetes mellitus (Acute) Hepatitis B (Resolved) Patient left foot appears stable and improving with wound vac. will continue with wound vac with dressing change mwf and continuous 125. discussed right foot. ulceration appears stable with superficial eschar. Patient right foot has remained stable throughout her past hospitalization and has shown remarkable improvement. Patient recently twisted her right foot and ankle prompting to get xray. xray shows new lucency. because of lucency, an mri was ordered which does show fluid collection concerning for abscess. Today, debridement of plantar foot ulceration was performed thru dermis and epidermis with 15 blade. no purulence was noted. bleeding controlled with pressure. while it is possible this fluid collection was infact the ulceration, cannot exclude something deep. Recommend transfer to hospital and will possibly consider deep debridement. I unfortunately will not be able to continue her care so I will transfer to [facility] and she will be under care of Dr. Sarah Rodriguez. She can f/u with me after her hospitalization.
[2018-08-29 20:00] VITALS: PULSE 80; RESP 16; O2SAT 96
[2018-08-29] MEDS: Atorvastatin Calcium 80 MG Tablet PO (20:18)
--- NOTE | 2018-08-29 21:01 | PCM.DC ---
- Discharge Diagnoses Current Active Problems: Current Active and Chronic Problems Neuropathic pain (Chronic) GERD (gastroesophageal reflux disease) (Chronic) Hypomagnesemia (Chronic) You will use the following diet at home:: No restrictions, Regular Your food should be the consistency of: Regular Your liquids should be the consistency of: Regular/Thin Discharge Activity: Use Walker Weight Bearing Status: Partial weight bearing - Right heel, left foot NWB. Call your doctor if you observe: Fever of 101 or Higher, Inability to urinate, Inability to have a bowel movement, Shortness of breath, Chest pain, Uncontrolled pain Allergies/Adverse Reactions: Allergies oxycodone [Oxycodone] Allergy (Verified 08/17/18 14:04) Rash oxycodone HCl [From OxyContin] Allergy (Verified 08/17/18 14:04) Rash Penicillins Allergy (Verified 08/17/18 14:04) Shortness of breath Medications to take at Discharge Insulin Aspart [Novolog Flexpen] 15 units SC TIDCM 01/27/15 Ascorbic Acid 500 mg PO BID 08/22/18 Ergocalciferol [Vitamin D] 50,000 unit PO GRAY 08/22/18 Gabapentin [Neurontin] 800 mg PO TID 08/22/18 Omeprazole [Prilosec] 20 mg PO DAILY 08/22/18 Rosuvastatin Calcium [Crestor] 40 mg PO DAILY 08/22/18 Bisacodyl [Dulcolax] 5 mg PO DAILY PRN PRN tablet 08/25/18 Cephalexin [Keflex] 500 mg PO Q8 08/25/18 Insulin Glargine [Lantus SoloStar Pen] 30 units SC BID 08/25/18 Acetaminophen [Tylenol] 1,000 mg PO Q6H PRN tablet 08/29/18 Enoxaparin [Lovenox] 40 mg SC DAILY@0600 syringe 08/29/18 Escitalopram Oxalate [Lexapro] 10 mg PO DAILY tablet 08/29/18 Glucerna Shake 120 ml PO 4X/DAY liquid 08/29/18 Iron Polysaccharide Complex [Ferrex 150] 150 mg PO DAILYCM capsule 08/29/18 Nutritional Supplement [Ted - ORANGE FLAVOR] 1 packet PO BIDCM packet 08/29/18 Ondansetron [Zofran Odt] 4 mg PO Q6H PRN PRN tablet 08/29/18 Polyethylene Glycol 3350 [Miralax] 17 gm PO DAILY packet 08/29/18 Ropinirole HCl [Requip] 3 mg PO 1000,2200 tablet 08/29/18 Senna/Docusate Sodium [Senokot-S] 1 tablet PO BID tablet 08/29/18 hydrOXYzine pamoate capsule [Vistaril pamoate capsule] 25 mg PO Q6H PRN PRN capsule 08/29/18 proMETHazine tablet [Phenergan tablet] 25 mg PO Q6H PRN PRN tablet 08/29/18 Primary Care Physician: Raúl Eric MD [Primary Care Provider] - Please follow up with your Primary Care Physician in: 1 week. Test Results: Test results from this visit will be discussed in further detail at your follow-up appointment, if applicable. Please Follow Up With: [facility] When: 2 weeks. Proposed Discharge Date: 08/29/18
--- NOTE | 2018-08-29 21:04 | DCINST_ITS ---
- Discharge Diagnoses Current Active Problems: Current Active and Chronic Problems Neuropathic pain (Chronic) GERD (gastroesophageal reflux disease) (Chronic) Hypomagnesemia (Chronic) You will use the following diet at home:: No restrictions, Regular Your food should be the consistency of: Regular Your liquids should be the consistency of: Regular/Thin Discharge Activity: Use Walker Weight Bearing Status: Partial weight bearing - Right heel, left foot NWB. Call your doctor if you observe: Fever of 101 or Higher, Inability to urinate, Inability to have a bowel movement, Shortness of breath, Chest pain, Uncontrolled pain Allergies/Adverse Reactions: Allergies oxycodone [Oxycodone] Allergy (Verified 08/17/18 14:04) Rash oxycodone HCl [From OxyContin] Allergy (Verified 08/17/18 14:04) Rash Penicillins Allergy (Verified 08/17/18 14:04) Shortness of breath Medications to take at Discharge Insulin Aspart [Novolog Flexpen] 15 units SC TIDCM 01/27/15 Ascorbic Acid 500 mg PO BID 08/22/18 Ergocalciferol [Vitamin D] 50,000 unit PO GRAY 08/22/18 Gabapentin [Neurontin] 800 mg PO TID 08/22/18 Omeprazole [Prilosec] 20 mg PO DAILY 08/22/18 Rosuvastatin Calcium [Crestor] 40 mg PO DAILY 08/22/18 Bisacodyl [Dulcolax] 5 mg PO DAILY PRN PRN tablet 08/25/18 Cephalexin [Keflex] 500 mg PO Q8 08/25/18 Insulin Glargine [Lantus SoloStar Pen] 30 units SC BID 08/25/18 Acetaminophen [Tylenol] 1,000 mg PO Q6H PRN tablet 08/29/18 Enoxaparin [Lovenox] 40 mg SC DAILY@0600 syringe 08/29/18 Escitalopram Oxalate [Lexapro] 10 mg PO DAILY tablet 08/29/18 Glucerna Shake 120 ml PO 4X/DAY liquid 08/29/18 Iron Polysaccharide Complex [Ferrex 150] 150 mg PO DAILYCM capsule 08/29/18 Nutritional Supplement [Ted - ORANGE FLAVOR] 1 packet PO BIDCM packet 08/29/18 Ondansetron [Zofran Odt] 4 mg PO Q6H PRN PRN tablet 08/29/18 Polyethylene Glycol 3350 [Miralax] 17 gm PO DAILY packet 08/29/18 Ropinirole HCl [Requip] 3 mg PO 1000,2200 tablet 08/29/18 Senna/Docusate Sodium [Senokot-S] 1 tablet PO BID tablet 08/29/18 hydrOXYzine pamoate capsule [Vistaril pamoate capsule] 25 mg PO Q6H PRN PRN capsule 08/29/18 proMETHazine tablet [Phenergan tablet] 25 mg PO Q6H PRN PRN tablet 08/29/18 Primary Care Physician: Raúl Eric MD [Primary Care Provider] - Please follow up with your Primary Care Physician in: 1 week. Test Results: Test results from this visit will be discussed in further detail at your follow- up appointment, if applicable. Please Follow Up With: [facility] When: 2 weeks. Proposed Discharge Date: 08/29/18
--- NOTE | 2018-08-29 21:04 | PCM.DC.SUM ---
Discharge Date and Diagnosis Date of Admission: 08/25/18 Date of Discharge: 08/29/18 - Secondary Discharge Diagnosis Chronic Problems HLD (hyperlipidemia) (Chronic) Neuropathic pain (Chronic) GERD (gastroesophageal reflux disease) (Chronic) Hypomagnesemia (Chronic) Back pain, chronic (Chronic) Hyponatremia (Chronic) Depression (Chronic) RLS (restless legs syndrome) (Chronic) Type II diabetes mellitus, uncontrolled (Chronic) Anxiety state (Chronic) Hospital Course and Treatment Imaging Results: 08/25/18 16:04 Diet: Calorie Controlled Type of Dietary Supplement:: Glucerna Shake How many daily calories?: 1800 calorie Clinical Impression(s) from Imaging Studies Ankle X-Ray 08/26/18 08:10 IMPRESSION: Medial and lateral malleolus degenerative change and midfoot degenerative changes as above. No evidence of definitive acute fracture. Electronically Signed: Kyle Warren DO at 8:38 EST , Service support , Foot X-Ray 08/26/18 08:12 IMPRESSION: Status post amputation changes through the proximal shaft of the fifth metatarsal. Electronically Signed: Juanjo Antunez MD at 9:01 EST , Service support , KUB X-Ray 08/27/18 09:38 IMPRESSION: Limited study.. Moderate constipation. Electronically Signed: Milli Haq MD at 10:00 EST Tel , Service support , Labs (Last 48 Hours) 08/27/18 08/28/18 08/28/18 21:06 06:23 10:58 POC Glucose 106 188 H 140 H 08/28/18 08/28/18 08/29/18 16:45 21:13 06:39 POC Glucose 241 H 262 H 107 08/29/18 08/29/18 11:09 16:57 POC Glucose 301 H 165 H Consultations 08/25/18 Consult: Onc/Wound/composition professor Routine Comment: Operations: None, - - Incision and drainage of left foot with bone biopsy of the fifth metatarsal Procedures: None Summary of Care Provided: The patient is a 53 year old Female with below past medical history significant for uncontrolled Diabetes Mellitus II, hospitalized for infected left diabetic foot ulcer, underwent debridement 08/23/[address] Allen, admitted to TCU with debility, here for rehabilitation, strengthening, wound care, prior to discharge home. 08/29/2018 MRI right foot shows right foot plantar abscess, Dr. Allen recommended transfer to [facility], as he will be out of town. Discharge to [facility] for further care. - Physical Exam Vital Signs Temp Pulse Resp BP Pulse Ox 98.2 F 90 18 110/59 L 95 08/29/18 15:49 08/29/18 15:49 08/29/18 15:49 08/29/18 15:49 08/29/18 15:49 Oxygen Delivery Method Room Air Weight: 86.381 kg Body Mass Index (BMI) 31.5 Intake and Output for Last 24 Hours 08/27/18 08/28/18 08/29/18 23:59 23:59 23:59 Intake Total 600 / 600 560 / 560 900 / 900 Balance 600 / 600 560 / 560 900 / 900 POC Glucose 08/29/18 08/29/18 08/29/18 16:57 11:09 06:39 POC Glucose 165 H 301 H 107 08/28/18 21:13 POC Glucose 262 H Discharge Diet: No Restrictions Discharge Activity: Use Walker Weight Bearing Status: Partial weight bearing - Right heel, left foot NWB. Call your doctor if you observe: Fever of 101 or Higher, Inability to urinate, Inability to have a bowel movement, Shortness of breath, Chest pain, Uncontrolled pain Home Medications: Medications to take at Discharge Insulin Aspart [Novolog Flexpen] 15 units SC TIDCM 01/27/15 Ascorbic Acid 500 mg PO BID 08/22/18 Ergocalciferol [Vitamin D] 50,000 unit PO GRAY 08/22/18 Gabapentin [Neurontin] 800 mg PO TID 08/22/18 Omeprazole [Prilosec] 20 mg PO DAILY 08/22/18 Rosuvastatin Calcium [Crestor] 40 mg PO DAILY 08/22/18 Bisacodyl [Dulcolax] 5 mg PO DAILY PRN PRN tablet 08/25/18 Cephalexin [Keflex] 500 mg PO Q8 08/25/18 Insulin Glargine [Lantus SoloStar Pen] 30 units SC BID 08/25/18 Acetaminophen [Tylenol] 1,000 mg PO Q6H PRN tablet 08/29/18 Enoxaparin [Lovenox] 40 mg SC DAILY@0600 syringe 08/29/18 Escitalopram Oxalate [Lexapro] 10 mg PO DAILY tablet 08/29/18 Glucerna Shake 120 ml PO 4X/DAY liquid 08/29/18 Iron Polysaccharide Complex [Ferrex 150] 150 mg PO DAILYCM capsule 08/29/18 Nutritional Supplement [Ted - ORANGE FLAVOR] 1 packet PO BIDCM packet 08/29/18 Ondansetron [Zofran Odt] 4 mg PO Q6H PRN PRN tablet 08/29/18 Polyethylene Glycol 3350 [Miralax] 17 gm PO DAILY packet 08/29/18 Ropinirole HCl [Requip] 3 mg PO 1000,2200 tablet 08/29/18 Senna/Docusate Sodium [Senokot-S] 1 tablet PO BID tablet 08/29/18 hydrOXYzine pamoate capsule [Vistaril pamoate capsule] 25 mg PO Q6H PRN PRN capsule 08/29/18 proMETHazine tablet [Phenergan tablet] 25 mg PO Q6H PRN PRN tablet 08/29/18 Primary Care Physician: Raúl Eric MD [Primary Care Provider] - Please follow up with your Primary Care Physician in: 1 week. Please Follow Up With: [facility] When: 2 weeks. Disposition: Acute care Hospital Minutes spent on discharge:: 30 Patient Condition:: Guarded Medical Necessity - Tobacco Use Smoking Status: Never smoker Tobacco Use: Non-smoker Meaningful Use Info Meaningful Use Diagnoses (Choose all that apply): None applicable
[2018-08-29 21:25] LABS: Bedside Glucose 214 mg/dL (70-110)
--- NOTE | 2018-08-29 21:38 | PCA ---
Called [facility] for wound vac package pick up and stop billing date, on this day. Spoke with Pricila, reference number [id number]
--- NOTE | 2018-08-30 04:00 | NURSING ---
[facility] called. There still is not any rooms available.
[2018-08-30] MEDS: oxyCODONE 5 MG Tablet PO ×2 (06:43→11:28)
[2018-08-30] MEDS: Glucerna Shake 120 ML LIQUID PO (06:45)
[2018-08-30] MEDS: Enoxaparin 40 MG/0.4 ML Syringe SC (06:46)
[2018-08-30] MEDS: Cephalexin 500 MG Capsule PO (06:46)
[2018-08-30] MEDS: Escitalopram Oxalate 10 MG Tablet PO (06:46)
[2018-08-30] MEDS: Gabapentin 800 MG Tablet PO (06:47)
[2018-08-30] MEDS: Ascorbic Acid 500 MG Tablet PO (06:48)
[2018-08-30] MEDS: Pantoprazole Sodium 20 MG Tablet PO (06:48)
[2018-08-30 06:51] LABS: Bedside Glucose 207 mg/dL (70-110)
[2018-08-30] MEDS: Insulin Lispro 100 UNIT/ML INSULN.PEN 15 UNIT SC ×2 (07:31→11:23)
[2018-08-30] MEDS: Iron Polysaccharide Complex 150 MG CAPSULE PO (07:57)
--- NOTE | 2018-08-30 10:00 | NURSING ---
[facility] called, have bed for pt G80 bed 35 . will set up transport by [facility]
--- NOTE | 2018-08-30 10:30 | NURSING ---
Pt is being discharged to [facility] for further surgery d/t MRI results of the right foot. Dr Allen arranged for the transfer. the wound VAC was removed from the left foot last evening. dressings to bilateral feet are to remain in place for transfer.
[2018-08-30 10:33] VITALS: PULSE 83; RESP 18; O2SAT 96
--- NOTE | 2018-08-30 10:42 | NURSING ---
PER KELSIE GUTHRIE DO NOT CHANGE WOUND DRESSINGS TODAY.
--- NOTE | 2018-08-30 10:52 | NURSING ---
Addendum entered by Vivian Chand 08/30/18 11:44: report called to [facility] at this time. Original Note: Addendum entered by Vivian Chand 08/30/18 10:54: transport set up for 11:30am Original Note: Attempted to call report to [facility], nurse busy will call back.
[2018-08-30 11:06] LABS: Bedside Glucose 314 mg/dL (70-110)
[2018-08-30] MEDS: Ondansetron ODT 4 MG Tablet PO (11:22)
[2018-08-30 11:34] VITALS: BP 133/74; PULSE 80; RESP 16; TEMP 36.7; O2SAT 94
--- NOTE | 2018-08-30 11:35 | NURSING ---
transport here to take pt via cot to [facility] main [place]
== END 2018-08-30 11:48 | disposition short-term general hospital (02) | DRG 950 ==
PROVIDERS: Admitting Provider Family Medicine Geriatric Medicine; Family Provider Family Medicine; PCP Family Medicine; Referring Provider Family Medicine Geriatric Medicine; Visit Provider Family Medicine Geriatric Medicine
DX: Z48.817 Encounter for surgical aftercare following surgery on the skin and subcutaneous tissue (principal); E11.42 Type 2 diabetes mellitus with diabetic polyneuropathy; E11.621 Type 2 diabetes mellitus with foot ulcer; L97.529 Non-pressure chronic ulcer of other part of left foot with unspecified severity; K21.9 Gastro-esophageal reflux disease without esophagitis; G25.81 Restless legs syndrome; E11.65 Type 2 diabetes mellitus with hyperglycemia; G89.29 Other chronic pain; F32.9 Major depressive disorder, single episode, unspecified; F41.1 Generalized anxiety disorder; E78.5 Hyperlipidemia, unspecified; E55.9 Vitamin D deficiency, unspecified; Z23 Encounter for immunization; Z86.19 Personal history of other infectious and parasitic diseases
CPT/HCPCS: 36415; 73610; 73630; 74018; 80048; 82962; 85025; 90732; 97110; 97116; 97162; 97166; 97530; 97535; 97802; G0009; J7030

== ENCOUNTER → 2018-08-29 08:15 | Outpatient (CLI) | payer MEDICARE, MEDICAID, SELFPAY ==
[2018-08-25 20:56] VITALS: BMI 31.5
--- NOTE | 2018-08-29 09:15 | MRI_ITS ---
STUDY: MRI RIGHT FOOT WITH AND WITHOUT CONTRAST REASON FOR EXAM: Concern for infection at the second and third metatarsals. TECHNIQUE: Standardized fat and water weighted pulse sequences were obtained in all 3 orthogonal planes before and after intravenous administration of 8 mL of Gadavist. COMPARISON: Radiographs 08/26/2018 and MRI images 01/14/2014. FINDINGS: Normal talonavicular articulation. Normal calcaneocuboid articulation. There is chondral thinning of the navicular-cuneiform articulations and second through fifth tarsometatarsal joints (T2 series 8 images 8-18) with bone edema and cystic changes particularly at the second and third tarsometatarsal joints (inversion recovery sagittal images 8-20) with mild contrast enhancement of the tarsal bones of the midfoot and second through fifth proximal metatarsals (postcontrast T1 sagittal images 9-20). 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 Normal first tarsometatarsal joint. Normal Lisfranc ligament. There is amputation of the fifth digit at the level of the proximal metatarsal. Normal tibialis anterior tendon. Normal extensor hallucis longus tendon. Normal extensor digitorum longus tendons. Normal peroneus longus tendon and distal insertion. Normal peroneus brevis tendon and distal insertion. There is atrophy with partial fat replacement of the intrinsic muscles of the foot (T1 sagittal images 8-19) suggestive of peripheral neuropathy. There is a small fluid collection in the subcutis adipose space plantar to the amputated fifth metatarsal (T2 series 8 images 14, 15; inversion recovery sagittal images 17, 18) measuring 1.0 x 0.9 cm (transverse x length) with mild contrast enhancement of the wall (postcontrast T1 sagittal images 17, 18) suggestive of a small soft tissue abscess. There is a lobulated ganglion cyst dorsal to the medial navicular-cuneiform articulation (inversion recovery sagittal image 9) measuring approximately 1.7 cm in length. MRI/Lower Ext No Joint W/WO Cont IMPRESSION: Neuropathic osteoarthropathy with subchondral cystic change at the second and third tarsometatarsal joints without demonstrated osteomyelitis. Small soft tissue abscess plantar to the amputated fifth metatarsal. Atrophy of the intrinsic muscles of the foot suggestive of peripheral neuropathy. Ganglion cyst dorsal to the medial navicular-cuneiform articulation. Electronically Signed: Saqib Roberts MD at 12:28 EST Tel , Service support ,
== END ==
PROVIDERS: Family Provider Family Medicine; PCP Family Medicine; Referring Provider Podiatrist Foot & Ankle Surgery; Visit Provider Podiatrist Foot & Ankle Surgery
DX: M86.8X7 Other osteomyelitis, ankle and foot (principal)
CPT/HCPCS: 73720; A9585; A4216

== ENCOUNTER 2018-09-05 15:06 | Inpatient (IN) | payer MEDICARE, MEDICAID, SELFPAY ==
[2018-09-05 15:19] VITALS: BP 129/72; PULSE 80; RESP 16; TEMP 36.8; O2SAT 98
[2018-09-05 15:37] VITALS: BMI 30.2
[2018-09-05 15:39] VITALS: BMI 30.2
--- NOTE | 2018-09-05 15:45 | NURSING ---
Dietary supplement not ordered d/t weight gain, pt states is just from not moving as much with wounds.
--- NOTE | 2018-09-05 16:01 | NURSING ---
pt arrived from [facility] via cot at [id number]
[2018-09-05 17:15] LABS: Bedside Glucose 189 mg/dL (70-110)
[2018-09-05] MEDS: Magnesium Oxide 400 MG Tablet PO (18:00)
[2018-09-05] MEDS: Ascorbic Acid 500 MG Tablet PO (18:00)
[2018-09-05] MEDS: Insulin Lispro 100 UNIT/ML INSULN.PEN 20 UNIT SC (18:03)
--- NOTE | 2018-09-05 19:37 | PCM.HP.STD ---
Problem List (1) Cellulitis Status: Chronic (2) Neuropathic pain Status: Chronic (3) GERD (gastroesophageal reflux disease) Status: Chronic (4) Hypomagnesemia Status: Chronic (5) Back pain, chronic Status: Chronic (6) Hyponatremia Status: Chronic (7) Depression Status: Chronic (8) Diabetic foot ulcer associated with type 2 diabetes mellitus Status: Acute (9) RLS (restless legs syndrome) Status: Chronic (10) Type II diabetes mellitus, uncontrolled Status: Chronic History of Present Illness Date of Admission: 09/05/18 Chief Complaint: Here for rehabilitation, strengthening, prior to discharge home alone. The patient is a 53 year old Female with below past medical history significant for uncontrolled Diabetes Mellitus II, hospitalized for infected left diabetic foot ulcer, underwent debridement 08/23/[address] Allen, admitted to TCU with debility, here for rehabilitation, strengthening, wound care. 08/29/2018 Transferred to [facility] for right plantar 5th metatarsal base abscess noted on MRI. Patient monitored, serial exams, no surgery performed. 09/05/2018 Admit to TCU with debility, here for rehabilitation, strengthening, wound care, prior to discharge home alone. Past Medical History Past Medical History (Chronic Problems): Chronic Problems HLD (hyperlipidemia) (Chronic) Cellulitis (Chronic) Neuropathic pain (Chronic) GERD (gastroesophageal reflux disease) (Chronic) Hypomagnesemia (Chronic) Back pain, chronic (Chronic) Hyponatremia (Chronic) Depression (Chronic) RLS (restless legs syndrome) (Chronic) Type II diabetes mellitus, uncontrolled (Chronic) Anxiety state (Chronic) Allergies oxycodone HCl [From OxyContin] Allergy (Verified 08/17/18 14:04) Rash Penicillins Allergy (Verified 08/17/18 14:04) Shortness of breath Home Medications: Ambulatory Orders Medication Instructions Recorded Insulin Aspart [Novolog Flexpen] 20 units SC TIDCM 01/27/15 Ascorbic Acid 500 mg PO BID 08/22/18 Ergocalciferol [Vitamin D] 50,000 unit PO GRAY 08/22/18 Gabapentin [Neurontin] 800 mg PO TID 08/22/18 Omeprazole [Prilosec] 20 mg PO DAILY 08/22/18 Rosuvastatin Calcium [Crestor] 40 mg PO DAILY 08/22/18 Bisacodyl [Dulcolax] 5 mg PO DAILY PRN PRN tablet 08/25/18 Cephalexin [Keflex] 500 mg PO Q8 08/25/18 Insulin Glargine [Lantus SoloStar 30 units SC BREAKFAST 08/25/18 Pen] Polyethylene Glycol 3350 [Miralax] 17 gm PO DAILY packet 08/29/18 proMETHazine tablet [Phenergan 25 mg PO Q6H PRN PRN tablet 08/29/18 tablet] Acetaminophen [Tylenol] 650 mg PO Q6H PRN PRN 09/05/18 Carboxymethylcellulose Sodium 1 each EACH EYE 4X/DAY 09/05/18 [Refresh Celluvisc] Docusate Sodium [Colace] 100 mg PO BID PRN 09/05/18 Insulin Glargine [Lantus (BKC)] 35 units SC QHS 09/05/18 Iron Polysaccharide Complex 150 mg PO DAILYCM 09/05/18 [Ferrex 150] Lactobacillus Rhamnosus GG 1 each PO DAILY 09/05/18 [Culturelle] Magnesium Oxide [Mag-Ox 400] 400 mg PO BID 09/05/18 Oxycodone [Oxyir] 5 mg PO Q8H PRN PRN 09/05/18 Ropinirole HCl [Requip] 3 mg PO 1000,2200 09/05/18 Simethicone 80 mg PO 4X/DAY PRN PRN 09/05/18 Surgical History: - - status post I&D of R foot 5th metatarsal abscess, 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 Bilateral carpal tunnel surgery 1994, right shoulder surgery in 1994, section x2. 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 She had had multiple strokes preceding that. Paternal History Items: - - Patient states her father when she was 5 years old, denies known medical history, denies known cardiac history. Sibling History Items: - - She has one brother who is secondary to cancer and she does not know what kind of cancer he had. She also has 3 brothers with a history of cardiovascular disease, stents and coronary artery bypass grafting. Review of Systems Constitutional: Denies: Chills, Fever, Weight Change HEENT: Denies: Head Aches, Sinus Congestion, Sinus Drainage Cardiovascular: Denies: Chest Pain, Palpitations Respiratory: Denies: Cough, Shortness of breath at rest, Sputum production Gastrointestinal: Denies: Abdominal Pain, Nausea, Vomiting Genitourinary: Denies: Dysuria Musculoskeletal: Denies: Joint Pain, Joint Tenderness Skin: Denies: Rash, Wounds Neurological: Denies: Numbness, Tingling, Focal weakness Psychiatric: Denies: Anxiety, Depression, Homicidal Ideations, Suicidal Ideations Hematologic/ Lymphatic: Denies: Easy Bruising, Easy Bleeding VTE Information - Inpt Only VTE Present on Admission: No VTE Mechan Device Prophylaxis: Knee High ROCIO Hose VTE Pharm Prophylaxis ordered?: Yes - Physical Exam General: Alert, Oriented x3, Cooperative HEENT: Atraumatic, PERRLA, EOMI, Normocephalic Neck: Supple, No JVD, Negative Carotid Bruits Lungs: Clear to auscultation, Normal air movement Cardiovascular: Regular rate, No murmurs Abdomen: Bowel Sounds Present, Soft, Non Tender Extremities: No edema, Capillary Refill Less than 3 Seconds Skin: No rashes, No breakdown, - - Bilateral lower extremities dressed with Kerlix, MYLA wraps. Musculoskeletal: No Tenderness to Palpation of Joints or Extremities Neurological: Cranial nerves II-XII grossly intact Psych/Mental Status: Normal Affect, Appropriate Vital Signs Temp Pulse Resp BP Pulse Ox 98.2 F 80 16 129/72 H 98 09/05/18 15:19 09/05/18 15:19 09/05/18 15:19 09/05/18 15:19 09/05/18 15:19 Oxygen Delivery Method Room Air Weight: 85.2 kg Body Mass Index (BMI) 30.2 Intake and Output for Last 24 Hours 09/03/18 09/04/18 09/05/18 23:59 23:59 23:59 Intake Total 240 / 240 Balance 240 / 240 POC Glucose 09/05/18 17:11 POC Glucose 189 H Assessment/Plan All Active Problems Diabetic foot ulcer associated with type 2 diabetes mellitus (Acute) Hepatitis B (Resolved) 53 year old female with below past medical history significant for uncontrolled diabetes mellitus, admitted from [facility] [place] for presumed right foot plantar abscess, no surgery performed, to TCU with debility, here for rehabilitation, strengthening, wound care, prior to discharge home alone. Debility - PT/OT. Pain - Tylenol 1000MG Q6H PRN mild pain, Oxycodone 5MG Q8H PRN severe pain. Bowel - Miralax 17GM daily, Senna/colace 1 tablet BID, Dulcolax 5MG daily PRN. Pneumonia vaccination - Administer Prevnar 13 and/or Pneumovax 23 as necessary. DVT prophylaxis - Lovenox 40MG SC daily. Vitamin C deficiency - Vitamin C 500MG BID. Hyperlipidemia - Atorvastatin 80MG QHS. Cellulitis of foot - Keflex 500MG Q8H thru 09/08/2018. Vitamin D deficiency - D2 50,000 units per week. Depression - Lexapro 10MG daily. Diabetes Mellitus II - Lantus 30 units QAM, 35 units QHS, Humalog 20 units TIDAC. Iron deficiency anemia - Ferrex 150MG daily. GI prophylaxis - Lactobacillus 1 tablet daily. Hypomagnesemia - Magnesium Oxide 400MG BID. GERD - Pantoprazole 20MG daily. Dry eye - Artificial 1GTT 4x/day. Nausea - Phenergan 25Mg Q6H PRN. Restless Leg syndrome - Requip 3MG BID. Gas - Simethicone 80MG 4x/day PRN.
--- NOTE | 2018-09-05 19:43 | HP.PCM_ITS ---
Problem List (1) Cellulitis Status: Chronic (2) Neuropathic pain Status: Chronic (3) GERD (gastroesophageal reflux disease) Status: Chronic (4) Hypomagnesemia Status: Chronic (5) Back pain, chronic Status: Chronic (6) Hyponatremia Status: Chronic (7) Depression Status: Chronic (8) Diabetic foot ulcer associated with type 2 diabetes mellitus Status: Acute (9) RLS (restless legs syndrome) Status: Chronic (10) Type II diabetes mellitus, uncontrolled Status: Chronic History of Present Illness Date of Admission: 09/05/18 Chief Complaint: Here for rehabilitation, strengthening, prior to discharge home alone. The patient is a 53 year old Female with below past medical history significant for uncontrolled Diabetes Mellitus II, hospitalized for infected left diabetic foot ulcer, underwent debridement 08/23/[address] Allen, admitted to TCU with debility, here for rehabilitation, strengthening, wound care. 08/29/2018 Transferred to [facility] for right plantar 5th metatarsal base abscess noted on MRI. Patient monitored, serial exams, no surgery performed. 09/05/2018 Admit to TCU with debility, here for rehabilitation, strengthening, wound care, prior to discharge home alone. Past Medical History Past Medical History (Chronic Problems): Chronic Problems HLD (hyperlipidemia) (Chronic) Cellulitis (Chronic) Neuropathic pain (Chronic) GERD (gastroesophageal reflux disease) (Chronic) Hypomagnesemia (Chronic) Back pain, chronic (Chronic) Hyponatremia (Chronic) Depression (Chronic) RLS (restless legs syndrome) (Chronic) Type II diabetes mellitus, uncontrolled (Chronic) Anxiety state (Chronic) Allergies oxycodone HCl [From OxyContin] Allergy (Verified 08/17/18 14:04) Rash Penicillins Allergy (Verified 08/17/18 14:04) Shortness of breath Home Medications: Ambulatory Orders Medication Instructions Recorded Insulin Aspart [Novolog Flexpen] 20 units SC TIDCM 01/27/15 Ascorbic Acid 500 mg PO BID 08/22/18 Ergocalciferol [Vitamin D] 50,000 unit PO GRAY 08/22/18 Gabapentin [Neurontin] 800 mg PO TID 08/22/18 Omeprazole [Prilosec] 20 mg PO DAILY 08/22/18 Rosuvastatin Calcium [Crestor] 40 mg PO DAILY 08/22/18 Bisacodyl [Dulcolax] 5 mg PO DAILY PRN PRN tablet 08/25/18 Cephalexin [Keflex] 500 mg PO Q8 08/25/18 Insulin Glargine [Lantus SoloStar 30 units SC BREAKFAST 08/25/18 Pen] Polyethylene Glycol 3350 [Miralax] 17 gm PO DAILY packet 08/29/18 proMETHazine tablet [Phenergan 25 mg PO Q6H PRN PRN tablet 08/29/18 tablet] Acetaminophen [Tylenol] 650 mg PO Q6H PRN PRN 09/05/18 Carboxymethylcellulose Sodium 1 each EACH EYE 4X/DAY 09/05/18 [Refresh Celluvisc] Docusate Sodium [Colace] 100 mg PO BID PRN 09/05/18 Insulin Glargine [Lantus (BKC)] 35 units SC QHS 09/05/18 Iron Polysaccharide Complex 150 mg PO DAILYCM 09/05/18 [Ferrex 150] Lactobacillus Rhamnosus GG 1 each PO DAILY 09/05/18 [Culturelle] Magnesium Oxide [Mag-Ox 400] 400 mg PO BID 09/05/18 Oxycodone [Oxyir] 5 mg PO Q8H PRN PRN 09/05/18 Ropinirole HCl [Requip] 3 mg PO 1000,2200 09/05/18 Simethicone 80 mg PO 4X/DAY PRN PRN 09/05/18 Surgical History: - - status post I&D of R foot 5th metatarsal abscess, 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 Bilateral carpal tunnel surgery 1994, right shoulder surgery in 1994, section x2. 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 She had had multiple strokes preceding that. Paternal History Items: - - Patient states her father when she was 5 years old, denies known medical history, denies known cardiac history. Sibling History Items: - - She has one brother who is secondary to cancer and she does not know what kind of cancer he had. She also has 3 brothers with a history of cardiovascular disease, stents and coronary artery bypass grafting. Review of Systems Constitutional: Denies: Chills, Fever, Weight Change HEENT: Denies: Head Aches, Sinus Congestion, Sinus Drainage Cardiovascular: Denies: Chest Pain, Palpitations Respiratory: Denies: Cough, Shortness of breath at rest, Sputum production Gastrointestinal: Denies: Abdominal Pain, Nausea, Vomiting Genitourinary: Denies: Dysuria Musculoskeletal: Denies: Joint Pain, Joint Tenderness Skin: Denies: Rash, Wounds Neurological: Denies: Numbness, Tingling, Focal weakness Psychiatric: Denies: Anxiety, Depression, Homicidal Ideations, Suicidal Ideations Hematologic/ Lymphatic: Denies: Easy Bruising, Easy Bleeding VTE Information - Inpt Only VTE Present on Admission: No VTE Mechan Device Prophylaxis: Knee High ROCIO Hose VTE Pharm Prophylaxis ordered?: Yes - Physical Exam General: Alert, Oriented x3, Cooperative HEENT: Atraumatic, PERRLA, EOMI, Normocephalic Neck: Supple, No JVD, Negative Carotid Bruits Lungs: Clear to auscultation, Normal air movement Cardiovascular: Regular rate, No murmurs Abdomen: Bowel Sounds Present, Soft, Non Tender Extremities: No edema, Capillary Refill Less than 3 Seconds Skin: No rashes, No breakdown, - - Bilateral lower extremities dressed with Kerlix, MYLA wraps. Musculoskeletal: No Tenderness to Palpation of Joints or Extremities Neurological: Cranial nerves II-XII grossly intact Psych/Mental Status: Normal Affect, Appropriate Vital Signs Temp Pulse Resp BP Pulse Ox 98.2 F 80 16 129/72 H 98 09/05/18 15:19 09/05/18 15:19 09/05/18 15:19 09/05/18 15:19 09/05/18 15:19 Oxygen Delivery Method Room Air Weight: 85.2 kg Body Mass Index (BMI) 30.2 Intake and Output for Last 24 Hours 09/03/18 09/04/18 09/05/18 23:59 23:59 23:59 Intake Total 240 / 240 Balance 240 / 240 POC Glucose 09/05/18 17:11 POC Glucose 189 H Assessment/Plan All Active Problems Diabetic foot ulcer associated with type 2 diabetes mellitus (Acute) Hepatitis B (Resolved) 53 year old female with below past medical history significant for uncontrolled diabetes mellitus, admitted from [facility] [place] for presumed right foot plantar abscess, no surgery performed, to TCU with debility, here for rehabilitation, strengthening, wound care, prior to discharge home alone. * Debility - PT/OT. * Pain - Tylenol 1000MG Q6H PRN mild pain, Oxycodone 5MG Q8H PRN severe pain. * Bowel - Miralax 17GM daily, Senna/colace 1 tablet BID, Dulcolax 5MG daily PRN. * Pneumonia vaccination - Administer Prevnar 13 and/or Pneumovax 23 as necessary. * DVT prophylaxis - Lovenox 40MG SC daily. * Vitamin C deficiency - Vitamin C 500MG BID. * Hyperlipidemia - Atorvastatin 80MG QHS. * Cellulitis of foot - Keflex 500MG Q8H thru 09/08/2018. * Vitamin D deficiency - D2 50,000 units per week. * Depression - Lexapro 10MG daily. * Diabetes Mellitus II - Lantus 30 units QAM, 35 units QHS, Humalog 20 units TIDAC. * Iron deficiency anemia - Ferrex 150MG daily. * GI prophylaxis - Lactobacillus 1 tablet daily. * Hypomagnesemia - Magnesium Oxide 400MG BID. * GERD - Pantoprazole 20MG daily. * Dry eye - Artificial 1GTT 4x/day. * Nausea - Phenergan 25Mg Q6H PRN. * Restless Leg syndrome - Requip 3MG BID. * Gas - Simethicone 80MG 4x/day PRN.
[2018-09-05] MEDS: oxyCODONE 5 MG Tablet PO (20:35)
[2018-09-05] MEDS: Cephalexin 500 MG Capsule PO (20:37)
[2018-09-05] MEDS: Atorvastatin Calcium 80 MG Tablet PO (20:38)
[2018-09-05 21:00] LABS: Bedside Glucose 178 mg/dL (70-110)
--- NOTE | 2018-09-06 05:44 | PCM.PN.RX ---
<HaileyGómez D - Last Filed: 09/06/18 05:44> Progress Note - Pharmacy Subjective: TCU Admission Objective: Allergies oxycodone HCl [From OxyContin] Allergy (Verified 08/17/18 14:04) Rash Penicillins Allergy (Verified 08/17/18 14:04) Shortness of breath Current Medications Generic Name Dose Route Start Last Admin Trade Name Freq PRN Reason Stop Dose Admin Acetaminophen 1,000 mg 09/05/18 19:55 Tylenol PO Q6H PRN MILD PAIN (1-3/10) Ascorbic Acid 500 mg 09/05/18 18:00 09/05/18 18:00 Vitamin C PO 500 mg BID [facility] Administration Atorvastatin Calcium 80 mg 09/05/18 22:00 09/05/18 20:38 Lipitor PO 80 mg QHS [facility] Administration Bisacodyl 5 mg 09/05/18 16:03 Dulcolax PO DAILY PRN PRN Constipation Cephalexin 500 mg 09/05/18 22:00 09/05/18 20:37 Keflex PO 09/08/18 06:01 500 mg Q8 TAB Administration Enoxaparin Sodium 40 mg 09/06/18 06:00 Lovenox SC DAILY@0600 [facility] Ergocalciferol 50,000 unit 09/10/18 10:00 Vitamin D PO GRAY [facility] Escitalopram Oxalate 10 mg 09/06/18 06:00 Lexapro PO DAILY [facility] Insulin Glargine 30 units 09/06/18 08:00 Lantus ([facility]) SC BREAKFAST [facility] Insulin Glargine 35 units 09/05/18 22:00 09/05/18 21:09 Lantus ([facility]) SC 35 u QHS [facility] Administration Insulin Human Lispro 20 unit 09/05/18 17:00 09/05/18 18:03 Humalog Kwikpen ([facility]) SC 20 u 0800,1200,1700 [facility] Administration Lactobacillus Acidophilus 1 tablet 09/06/18 06:00 Acidophilus PO DAILY [facility] Magnesium Oxide 400 mg 09/05/18 18:00 09/05/18 18:00 Mag-Ox 400 PO 400 mg BID TAB Administration Oxycodone HCl 5 mg 09/05/18 16:03 09/05/18 20:35 Oxyir PO 5 mg Q8H PRN PRN Administration SEVERE PAIN (6-10/10) Pantoprazole Sodium 20 mg 09/06/18 06:00 Protonix PO DAILY [facility] Polyethylene Glycol 17 gm 09/06/18 06:00 Miralax PO DAILY [facility] Polysaccharide Iron Complex 150 mg 09/06/18 08:00 [facility]rex [facility] Promethazine HCl 25 mg 09/05/18 16:03 Phenergan Tablet PO Q6H PRN PRN NAUSEA/VOMITING Ropinirole HCl 3 mg 09/05/18 22:00 09/05/18 20:37 Requip PO 3 mg 1000,2200 [facility] Administration Senna/Docusate Sodium 1 tablet 09/06/18 06:00 Senokot-S, Natacha-Colace PO BID [facility] Simethicone 80 mg 09/05/18 16:03 Mylicon PO 4X/DAY PRN PRN Gas Tuberculin PPD 5 tu 09/06/18 10:00 Tubersol, Aplisol, Ppd ID 09/06/18 10:01 X1 ONE Tuberculin PPD 5 09/13/18 10:00 Tubersol, Aplisol, Ppd ID 09/13/18 10:01 X1 ONE Vital Signs Temp Pulse Resp BP Pulse Ox 98.2 F 80 16 129/72 H 98 09/05/18 15:19 09/05/18 15:19 09/05/18 15:19 09/05/18 15:19 09/05/18 15:19 Oxygen Delivery Method Room Air Weight: 85.2 kg Body Mass Index (BMI) 30.2 Assessment/Plan: 1) Pain APAP for mild pain, oxycodone for severe pain, gabapentin. Continue to monitor prn medication use, daily pain scores. 2) DM2 Insulin glargine twice daily, lispro with meals, atorvastatin. Continue to monitor BGT, s/s hyper/hypoglycemia, lipids. 3) ID Cephalexin until 09/08. ID following. Continue to monitor s/s infection. 4) GI Pantoprazole daily, lactobacillus, promethazine prn, simethicone prn. Continue to monitor prn medication use, s/s GI distress. 5) Nutrition Ted, Fe, Glucerna, D, C, Mg. Continue to monitor clinically. 6) DVT PPx Enoxaparin daily. Continue to monitor s/s bleeding/clot. 7) RLS Ropinirole. Continue to monitor for restless legs. Psychotropic Medications: 8) Depression Escitalopram daily. Continue to monitor for depression Unnecessary Medications: None Bowel Regimen: 9) Senna/s, PEG, prn bisacodyl. Continue to monitor prn medication use, for constipation/diarrhea. Date of Note:: 09/06/18 - Provider Comments Provider responsibility: Provider responsible to enter orders to implement recommendations <Chauncey Hassan Chi - Last Filed: 09/06/18 08:10> Progress Note - Pharmacy Subjective: [] Objective: Allergies oxycodone HCl [From OxyContin] Allergy (Verified 08/17/18 14:04) Rash Penicillins Allergy (Verified 08/17/18 14:04) Shortness of breath Current Medications Generic Name Dose Route Start Last Admin Trade Name Freq PRN Reason Stop Dose Admin Acetaminophen 1,000 mg 09/05/18 19:55 Tylenol PO Q6H PRN MILD PAIN (1-3/10) Ascorbic Acid 500 mg 09/05/18 18:00 09/06/18 05:58 Vitamin C PO 500 mg BID TAB Administration Atorvastatin Calcium 80 mg 09/05/18 22:00 09/05/18 20:38 Lipitor PO 80 mg QHS TAB Administration Bisacodyl 5 mg 09/05/18 16:03 Dulcolax PO DAILY PRN PRN Constipation Cephalexin 500 mg 09/05/18 22:00 09/06/18 05:58 Keflex PO 09/08/18 06:01 500 mg Q8 TAB Administration Enoxaparin Sodium 40 mg 09/06/18 06:00 09/06/18 05:58 Lovenox SC 40 mg DAILY@0600 TAB Administration Ergocalciferol 50,000 unit 09/10/18 10:00 Vitamin D PO GRAY TAB Escitalopram Oxalate 10 mg 09/06/18 06:00 09/06/18 05:58 Lexapro PO 10 mg DAILY TAB Administration Insulin Glargine 30 units 09/06/18 08:00 Lantus ([facility]) SC BREAKFAST [facility] Insulin Glargine 35 units 09/05/18 22:00 09/05/18 21:09 Lantus ([facility]) SC 35 u QHS TAB Administration Insulin Human Lispro 20 unit 09/05/18 17:00 09/05/18 18:03 Humalog Kwikpen ([facility]) SC 20 u 0800,1200,1700 TAB Administration Lactobacillus Acidophilus 1 tablet 09/06/18 06:00 09/06/18 05:58 Acidophilus PO 1 tablet DAILY TAB Administration Magnesium Oxide 400 mg 09/05/18 18:00 09/06/18 05:58 Mag-Ox 400 PO 400 mg BID TAB Administration Oxycodone HCl 5 mg 09/05/18 16:03 09/06/18 05:56 Oxyir PO 5 mg Q8H PRN PRN Administration SEVERE PAIN (6-10/10) Pantoprazole Sodium 20 mg 09/06/18 06:00 09/06/18 05:58 Protonix PO 20 mg DAILY TAB Administration Polyethylene Glycol 17 gm 09/06/18 06:00 09/06/18 05:57 Miralax PO 17 gm DAILY [facility] Administration Polysaccharide Iron Complex 150 mg 09/06/18 08:00 Ferrex 150 [facility] Promethazine HCl 25 mg 09/05/18 16:03 Phenergan Tablet PO Q6H PRN PRN NAUSEA/VOMITING Ropinirole HCl 3 mg 09/05/18 22:00 09/05/18 20:37 Requip PO 3 mg 1000,2200 [facility] Administration Senna/Docusate Sodium 1 tablet 09/06/18 06:00 09/06/18 05:59 Senokot-S, Natacha-Colace PO 1 tablet BID [facility] Administration Simethicone 80 mg 09/05/18 16:03 Mylicon PO 4X/DAY PRN PRN Gas Tuberculin PPD 5 09/06/18 10:00 Tubersol, Aplisol, Ppd ID 09/06/18 10:01 X1 ONE Tuberculin PPD 5 09/13/18 10:00 Tubersol, Aplisol, Ppd ID 09/13/18 10:01 X1 ONE Vital Signs Temp Pulse Resp BP Pulse Ox 98.2 F 80 16 129/72 H 98 09/05/18 15:19 09/05/18 15:19 09/05/18 15:19 09/05/18 15:19 09/05/18 15:19 Oxygen Delivery Method Room Air Weight: 85.2 kg Body Mass Index (BMI) 30.2 Sodium 140 mmol/L (136-145) 09/06/18 05:10 Potassium 4.2 mmol/L (3.5-5.1) 09/06/18 05:10 Chloride 104 mmol/L (98-107) 09/06/18 05:10 Carbon Dioxide 28.0 mmol/L (21.0-32.0) 09/06/18 05:10 Anion Gap 8 (5-15) 09/06/18 05:10 BUN 20 mg/dL (7-18) H 09/06/18 05:10 Creatinine 1.05 mg/dL (0.55-1.02) H 09/06/18 05:10 Est GFR (MDRD) Af Amer 71 mL/min (>60) 09/06/18 05:10 Est GFR (MDRD) Non-Af 58 mL/min (>60) L 09/06/18 05:10 BUN/Creatinine Ratio 19.0 RATIO (10-20) 09/06/18 05:10 Glucose 307 mg/dL (74-106) H 09/06/18 05:10 Assessment/Plan: Psychotropic Medications: Unnecessary Medications: Bowel Regimen: - Provider Comments Provider responsibility: Provider responsible to enter orders to implement recommendations Provider Comments to Recommendations by Pharmacy: Agree
--- NOTE | 2018-09-06 05:54 | PHA.CONS_ITS ---
<HaileyGómez D - Last Filed: 09/06/18 05:44> Progress Note - Pharmacy Subjective: TCU Admission Objective: Allergies oxycodone HCl [From OxyContin] Allergy (Verified 08/17/18 14:04) Rash Penicillins Allergy (Verified 08/17/18 14:04) Shortness of breath Current Medications Generic Name Dose Route Start Last Admin Trade Name Freq PRN Reason Stop Dose Admin Acetaminophen 1,000 mg 09/05/18 19:55 Tylenol PO Q6H PRN MILD PAIN (1-3/10) Ascorbic Acid 500 mg 09/05/18 18:00 09/05/18 18:00 Vitamin C PO 500 mg BID [facility] Administration Atorvastatin Calcium 80 mg 09/05/18 22:00 09/05/18 20:38 Lipitor PO 80 mg QHS [facility] Administration Bisacodyl 5 mg 09/05/18 16:03 Dulcolax PO DAILY PRN PRN Constipation Cephalexin 500 mg 09/05/18 22:00 09/05/18 20:37 Keflex PO 09/08/18 06:01 500 mg Q8 TAB Administration Enoxaparin Sodium 40 mg 09/06/18 06:00 Lovenox SC DAILY@0600 [facility] Ergocalciferol 50,000 unit 09/10/18 10:00 Vitamin D PO GRAY [facility] Escitalopram Oxalate 10 mg 09/06/18 06:00 Lexapro PO DAILY [facility] Insulin Glargine 30 units 09/06/18 08:00 Lantus ([facility]) SC BREAKFAST [facility] Insulin Glargine 35 units 09/05/18 22:00 09/05/18 21:09 Lantus ([facility]) SC 35 u QHS [facility] Administration Insulin Human Lispro 20 unit 09/05/18 17:00 09/05/18 18:03 Humalog Kwikpen ([facility]) SC 20 u 0800,1200,1700 [facility] Administration Lactobacillus Acidophilus 1 tablet 09/06/18 06:00 Acidophilus PO DAILY [facility] Magnesium Oxide 400 mg 09/05/18 18:00 09/05/18 18:00 Mag-Ox 400 PO 400 mg BID TAB Administration Oxycodone HCl 5 mg 09/05/18 16:03 09/05/18 20:35 Oxyir PO 5 mg Q8H PRN PRN Administration SEVERE PAIN (6-10/10) Pantoprazole Sodium 20 mg 09/06/18 06:00 Protonix PO DAILY [facility] Polyethylene Glycol 17 gm 09/06/18 06:00 Miralax PO DAILY [facility] Polysaccharide Iron Complex 150 mg 09/06/18 08:00 [facility] Promethazine HCl 25 mg 09/05/18 16:03 Phenergan Tablet PO Q6H PRN PRN NAUSEA/VOMITING Ropinirole HCl 3 mg 09/05/18 22:00 09/05/18 20:37 Requip PO 3 mg 1000,2200 [facility] Administration Senna/Docusate Sodium 1 tablet 09/06/18 06:00 Senokot-S, Natacha-Colace PO BID [facility] Simethicone 80 mg 09/05/18 16:03 Mylicon PO 4X/DAY PRN PRN Gas Tuberculin PPD 5 tu 09/06/18 10:00 Tubersol, Aplisol, Ppd ID 09/06/18 10:01 X1 ONE Tuberculin PPD 5 09/13/18 10:00 Tubersol, Aplisol, Ppd ID 09/13/18 10:01 X1 ONE Vital Signs Temp Pulse Resp BP Pulse Ox 98.2 F 80 16 129/72 H 98 09/05/18 15:19 09/05/18 15:19 09/05/18 15:19 09/05/18 15:19 09/05/18 15:19 Oxygen Delivery Method Room Air Weight: 85.2 kg Body Mass Index (BMI) 30.2 Assessment/Plan: 1) Pain APAP for mild pain, oxycodone for severe pain, gabapentin. Continue to monitor prn medication use, daily pain scores. 2) DM2 Insulin glargine twice daily, lispro with meals, atorvastatin. Continue to monitor BGT, s/s hyper/hypoglycemia, lipids. 3) ID Cephalexin until 09/08. ID following. Continue to monitor s/s infection. 4) GI Pantoprazole daily, lactobacillus, promethazine prn, simethicone prn. Continue to monitor prn medication use, s/s GI distress. 5) Nutrition Ted, Fe, Glucerna, D, C, Mg. Continue to monitor clinically. 6) DVT PPx Enoxaparin daily. Continue to monitor s/s bleeding/clot. 7) RLS Ropinirole. Continue to monitor for restless legs. Psychotropic Medications: 8) Depression Escitalopram daily. Continue to monitor for depression Unnecessary Medications: None Bowel Regimen: 9) Senna/s, PEG, prn bisacodyl. Continue to monitor prn medication use, for constipation/diarrhea. Date of Note:: 09/06/18 - Provider Comments Provider responsibility: Provider responsible to enter orders to implement recommendations <Chauncey Hassan Chi - Last Filed: 09/06/18 08:10> Progress Note - Pharmacy Subjective: [] Objective: Allergies oxycodone HCl [From OxyContin] Allergy (Verified 08/17/18 14:04) Rash Penicillins Allergy (Verified 08/17/18 14:04) Shortness of breath Current Medications Generic Name Dose Route Start Last Admin Trade Name Freq PRN Reason Stop Dose Admin Acetaminophen 1,000 mg 09/05/18 19:55 Tylenol PO Q6H PRN MILD PAIN (1-3/10) Ascorbic Acid 500 mg 09/05/18 18:00 09/06/18 05:58 Vitamin C PO 500 mg BID TAB Administration Atorvastatin Calcium 80 mg 09/05/18 22:00 09/05/18 20:38 Lipitor PO 80 mg QHS TAB Administration Bisacodyl 5 mg 09/05/18 16:03 Dulcolax PO DAILY PRN PRN Constipation Cephalexin 500 mg 09/05/18 22:00 09/06/18 05:58 Keflex PO 09/08/18 06:01 500 mg Q8 TAB Administration Enoxaparin Sodium 40 mg 09/06/18 06:00 09/06/18 05:58 Lovenox SC 40 mg DAILY@0600 TAB Administration Ergocalciferol 50,000 unit 09/10/18 10:00 Vitamin D PO GRAY TAB Escitalopram Oxalate 10 mg 09/06/18 06:00 09/06/18 05:58 Lexapro PO 10 mg DAILY TAB Administration Insulin Glargine 30 units 09/06/18 08:00 Lantus ([facility]) SC BREAKFAST [facility] Insulin Glargine 35 units 09/05/18 22:00 09/05/18 21:09 Lantus ([facility]) SC 35 u QHS TAB Administration Insulin Human Lispro 20 unit 09/05/18 17:00 09/05/18 18:03 Humalog Kwikpen ([facility]) SC 20 u 0800,1200,1700 TAB Administration Lactobacillus Acidophilus 1 tablet 09/06/18 06:00 09/06/18 05:58 Acidophilus PO 1 tablet DAILY TAB Administration Magnesium Oxide 400 mg 09/05/18 18:00 09/06/18 05:58 Mag-Ox 400 PO 400 mg BID TAB Administration Oxycodone HCl 5 mg 09/05/18 16:03 09/06/18 05:56 Oxyir PO 5 mg Q8H PRN PRN Administration SEVERE PAIN (6-10/10) Pantoprazole Sodium 20 mg 09/06/18 06:00 09/06/18 05:58 Protonix PO 20 mg DAILY TAB Administration Polyethylene Glycol 17 gm 09/06/18 06:00 09/06/18 05:57 Miralax PO 17 gm DAILY [facility] Administration Polysaccharide Iron Complex 150 mg 09/06/18 08:00 Ferrex 150 [facility] Promethazine HCl 25 mg 09/05/18 16:03 Phenergan Tablet PO Q6H PRN PRN NAUSEA/VOMITING Ropinirole HCl 3 mg 09/05/18 22:00 09/05/18 20:37 Requip PO 3 mg 1000,2200 [facility] Administration Senna/Docusate Sodium 1 tablet 09/06/18 06:00 09/06/18 05:59 Senokot-S, Natacha-Colace PO 1 tablet BID [facility] Administration Simethicone 80 mg 09/05/18 16:03 Mylicon PO 4X/DAY PRN PRN Gas Tuberculin PPD 5 09/06/18 10:00 Tubersol, Aplisol, Ppd ID 09/06/18 10:01 X1 ONE Tuberculin PPD 5 09/13/18 10:00 Tubersol, Aplisol, Ppd ID 09/13/18 10:01 X1 ONE Vital Signs Temp Pulse Resp BP Pulse Ox 98.2 F 80 16 129/72 H 98 09/05/18 15:19 09/05/18 15:19 09/05/18 15:19 09/05/18 15:19 09/05/18 15:19 Oxygen Delivery Method Room Air Weight: 85.2 kg Body Mass Index (BMI) 30.2 Sodium 140 mmol/L (136-145) 09/06/18 05:10 Potassium 4.2 mmol/L (3.5-5.1) 09/06/18 05:10 Chloride 104 mmol/L (98-107) 09/06/18 05:10 Carbon Dioxide 28.0 mmol/L (21.0-32.0) 09/06/18 05:10 Anion Gap 8 (5-15) 09/06/18 05:10 BUN 20 mg/dL (7-18) H 09/06/18 05:10 Creatinine 1.05 mg/dL (0.55-1.02) H 09/06/18 05:10 Est GFR (MDRD) Af Amer 71 mL/min (>60) 09/06/18 05:10 Est GFR (MDRD) Non-Af 58 mL/min (>60) L 09/06/18 05:10 BUN/Creatinine Ratio 19.0 RATIO (10-20) 09/06/18 05:10 Glucose 307 mg/dL (74-106) H 09/06/18 05:10 Assessment/Plan: Psychotropic Medications: Unnecessary Medications: Bowel Regimen: - Provider Comments Provider responsibility: Provider responsible to enter orders to implement recommendations Provider Comments to Recommendations by Pharmacy: Agree
[2018-09-06] MEDS: oxyCODONE 5 MG Tablet PO ×2 (05:56→17:20)
[2018-09-06] MEDS: Polyethylene Glycol 3350 17 GM PACKET PO (05:57)
[2018-09-06] MEDS: Escitalopram Oxalate 10 MG Tablet PO (05:58)
[2018-09-06] MEDS: Magnesium Oxide 400 MG Tablet PO ×2 (05:58→17:20)
[2018-09-06] MEDS: Ascorbic Acid 500 MG Tablet PO ×2 (05:58→17:20)
[2018-09-06] MEDS: Cephalexin 500 MG Capsule PO ×3 (05:58→20:34)
[2018-09-06] MEDS: Pantoprazole Sodium 20 MG Tablet PO (05:58)
[2018-09-06] MEDS: Enoxaparin 40 MG/0.4 ML Syringe SC (05:58)
[2018-09-06] MEDS: Senna/Docusate Sodium 1 Tablet PO (05:59)
[2018-09-06 06:09] LABS: Absolute Lymphocyte Count 1.71 X10^3/ul (0.83-4.51); Absolute Neutrophil Count 6.7 X10^3/uL (2.0-7.7); Basophil# 0.02 X10^3/uL; Basophil% 0.2 % (0-1); Eosinophil# 0.11 X10^3/uL; Eosinophils% 1.2 % (0-5); Hematocrit 33.8 % (37-47); Hemoglobin 10.7 g/dl (12.0-15.0); Lymphocyte # 1.71 X10^3/ul (4.0); Mean Corp Hgb Conc 31.7 g/gl (32-36); Mean Corpuscular Hgb 28.1 pg (27.0-32.0); Mean Corpuscular Volume 88.7 fL (81-99); Mean Platelet Vol. 10.4 fl (6.2-12.0); Monocyte# 0.45 X10^3/uL; Neutrophil # 6.69 X10^3/uL (2.7-7.7); Neutrophil % 74.4 % (47-70); Platelet Count 424 K/mm3 (150-450); RBC Distribution Width CV 13.6 % (11.6-14.6); RBC Distribution Width SD 43.5 fl (35.1-43.9); Red Blood Count 3.81 M/mm3 (4.2-5.4)
[2018-09-06 06:13] LABS: Anion Gap 8 (5-15); BUN 20 mg/dL (7-18); Calcium,Total 8.9 mg/dL (8.5-10.1); Chloride 104 mmol/L (98-107); Creatinine, Serum 1.05 mg/dL (0.55-1.02); EST Glomerular Filtration Rate 58 mL/min (>60); Est Glom Filt Rate - Afr Amer 71 mL/min (>60); Estimated Creatinine Clearance 58.01 ml/min; Glucose 307 mg/dL (74-106); Potassium 4.2 mmol/L (3.5-5.1); Sodium Level 140 mmol/L (136-145)
[2018-09-06 06:24] LABS: POSITIVE COUNT NO; POSITIVE DIFFERENTIAL NO; POSITIVE MORPHOLOGY NO
[2018-09-06 07:01] LABS: Bedside Glucose 278 mg/dL (70-110)
[2018-09-06] MEDS: Insulin Lispro 100 UNIT/ML INSULN.PEN 20 UNIT SC ×3 (08:07→17:21)
[2018-09-06] MEDS: Iron Polysaccharide Complex 150 MG CAPSULE PO (08:07)
--- NOTE | 2018-09-06 11:14 | NURSING ---
wound photo: left plantar foot
--- NOTE | 2018-09-06 11:14 | NURSING ---
wound photo: right plantar foot
[2018-09-06] MEDS: Acetaminophen 500 MG Tablet 1000 MG PO (11:33)
[2018-09-06] MEDS: Tuberculin,Purif.prot.deriv. 50 TU/ML Vial 5 ML ID (11:34)
--- NOTE | 2018-09-06 11:39 | NURSING ---
Addendum entered by Tigist Lee 09/06/18 12:03: Spoke with underwriting sales representative at [employer]. They do not provide diabetic shoes for patients in long term/hospital setting. Will fax paperwork or MD to sign and patient to call when discharged home to have shoes ordered. Original Note: [facility].
[2018-09-06 11:56] LABS: Bedside Glucose 203 mg/dL (70-110)
[2018-09-06] MEDS: proMETHazine 25 MG Tablet PO (13:05)
--- NOTE | 2018-09-06 14:56 | NURSING ---
KELSIE GUTHRIE WOUND NURSE CHANGED PT DRESSINGS TODAY AND WOUND VAC.
--- NOTE | 2018-09-06 15:48 | CHAPLAIN ---
attempted visit with patient as requested but patient was in bed and said she is not feeling well enough to visit today
[2018-09-06 16:00] VITALS: BP 145/76; PULSE 77; RESP 18; TEMP 37; O2SAT 98
[2018-09-06 17:10] LABS: Bedside Glucose 172 mg/dL (70-110)
--- NOTE | 2018-09-06 19:31 | CON.PCM_ITS ---
Reason for Consult Date of Consultation: 09/06/18 Reason for Consultation: b/l foot ulceration History of Present Illness: The patient is a 53 noncompliant diabetic female who has ulceration of b/l feet. she has ulceration of left foot treated with wound vac. she is tolerating wound vac changes nicely. she has no pain. patient has ulceration of right foot that she was sent to [facility]. It was determined that in absence of infection, mri findings are likely that of bursitis. patient denies any n/v/f/c. patient has no other complaints. Past Medical History Past Medical History (Chronic Problems): Chronic Problems HLD (hyperlipidemia) (Chronic) Cellulitis (Chronic) Neuropathic pain (Chronic) GERD (gastroesophageal reflux disease) (Chronic) Hypomagnesemia (Chronic) Back pain, chronic (Chronic) Hyponatremia (Chronic) Depression (Chronic) RLS (restless legs syndrome) (Chronic) Type II diabetes mellitus, uncontrolled (Chronic) Anxiety state (Chronic) Allergies oxycodone HCl [From OxyContin] Allergy (Verified 08/17/18 14:04) Rash Penicillins Allergy (Verified 08/17/18 14:04) Shortness of breath Home Medications: Ambulatory Orders Medication Instructions Recorded Insulin Aspart [Novolog Flexpen] 20 units SC TIDCM 01/27/15 Ascorbic Acid 500 mg PO BID 08/22/18 Ergocalciferol [Vitamin D] 50,000 unit PO GRAY 08/22/18 Gabapentin [Neurontin] 800 mg PO TID 08/22/18 Omeprazole [Prilosec] 20 mg PO DAILY 08/22/18 Rosuvastatin Calcium [Crestor] 40 mg PO DAILY 08/22/18 Bisacodyl [Dulcolax] 5 mg PO DAILY PRN PRN tablet 08/25/18 Cephalexin [Keflex] 500 mg PO Q8 08/25/18 Insulin Glargine [Lantus SoloStar 30 units SC BREAKFAST 08/25/18 Pen] Polyethylene Glycol 3350 [Miralax] 17 gm PO DAILY packet 08/29/18 proMETHazine tablet [Phenergan 25 mg PO Q6H PRN PRN tablet 08/29/18 tablet] Acetaminophen [Tylenol] 650 mg PO Q6H PRN PRN 09/05/18 Carboxymethylcellulose Sodium 1 each EACH EYE 4X/DAY 09/05/18 [Refresh Celluvisc] Docusate Sodium [Colace] 100 mg PO BID PRN 09/05/18 Insulin Glargine [Lantus ([facility])] 35 units SC QHS 09/05/18 Iron Polysaccharide Complex 150 mg PO DAILYCM 09/05/18 [Ferrex 150] Lactobacillus Rhamnosus GG 1 each PO DAILY 09/05/18 [Culturelle] Magnesium Oxide [Mag-Ox 400] 400 mg PO BID 09/05/18 Oxycodone [Oxyir] 5 mg PO Q8H PRN PRN 09/05/18 Ropinirole HCl [Requip] 3 mg PO 1000,2200 09/05/18 Simethicone 80 mg PO 4X/DAY PRN PRN 09/05/18 Surgical History: - - status post I&D of R foot 5th metatarsal abscess, 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 Bilateral carpal tunnel surgery 1994, right shoulder surgery in 1994, section x2. 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 She had had multiple strokes preceding that. Paternal History Items: - - Patient states her father when she was 5 years old, denies known medical history, denies known cardiac history. Sibling History Items: - - She has one brother who is secondary to cancer and she does not know what kind of cancer he had. She also has 3 brothers with a history of cardiovascular disease, stents and coronary artery bypass grafting. Objective: Patient is alert and orientated x 3. patient does not appear in any distress left foot has wound vac intact and maintaining suction. review of chart shows wound that is nice and granular without signs of infection. right foot has mostly healed ulceration with small eschar and vinicius-wound hyperkeratosis. there does not appear to be any signs of infection. no other ulcerations are noted. - Physical Exam Vital Signs Temp Pulse Resp BP Pulse Ox 98.6 F 77 18 145/76 H 98 09/06/18 16:00 09/06/18 16:00 09/06/18 16:00 09/06/18 16:00 09/06/18 16:00 Oxygen Delivery Method Room Air Weight: 85.2 kg Body Mass Index (BMI) 30.2 Intake and Output for Last 24 Hours 09/04/18 09/05/18 09/06/18 23:59 23:59 23:59 Intake Total 240 / 240 1200 / 1200 Balance 240 / 240 1200 / 1200 Laboratory Tests Past 24 Hrs 09/06/18 09/06/18 05:10 05:10 WBC 9.0 RBC 3.81 L Hgb 10.7 L Hct 33.8 L MCV 88.7 MCH 28.1 MCHC 31.7 L RDW 13.6 RDW Differential 43.5 Plt Count 424 MPV 10.4 Immature Gran % (Auto) 0.200 Neut % (Auto) 74.4 H Lymph % (Auto) 19.0 [place] % (Auto) 5.0 Eos % (Auto) 1.2 Baso % (Auto) 0.2 Absolute Neuts (auto) 6.7 Absolute Lymphs (auto) 1.71 Total Counted Not Reportable Sodium 140 Potassium 4.2 Chloride 104 Carbon Dioxide 28.0 Anion Gap 8 BUN 20 H Creatinine 1.05 H Estim Creat Clear Calc 58.01 Est GFR (MDRD) Af Amer 71 Est GFR (MDRD) Non-Af 58 L BUN/Creatinine Ratio 19.0 Glucose 307 H Calcium 8.9 POC Glucose 09/06/18 09/06/18 09/06/18 17:04 11:40 06:49 POC Glucose 172 H 203 H 278 H 09/05/18 20:53 POC Glucose 178 H Assessment/Plan All Active Problems Diabetic foot ulcer associated with type 2 diabetes mellitus (Acute) Hepatitis B (Resolved) diabetic foot ulceration of left foot:Continue with wound vac. Will need changed every tuesday, tuesday and Tuesday. Continue with nwb. In a few weeks, consider skin substitute as outpatient. Diabetic foot ulceration of right foot. ulceration is essentially healed. today, black eschar was debrided. it is more of callus. callus debrided with 15 blade. no deep ulceration present. no signs of infection. recommend lotion to her right foot and amerigel to right foot superficial ulceration with small guaze wrap. she is to continue with peg assisted offloading boot. I will round on patient once weekly unless condition worsens prompting me to see her more. Patient will benefit from continued nwb of left foot. all questions answered.
[2018-09-06] MEDS: Atorvastatin Calcium 80 MG Tablet PO (20:35)
[2018-09-06 20:59] VITALS: PULSE 78; RESP 18; O2SAT 96
[2018-09-06 21:31] LABS: Bedside Glucose 256 mg/dL (70-110)
[2018-09-07] MEDS: oxyCODONE 5 MG Tablet PO ×2 (01:51→20:53)
[2018-09-07] MEDS: Escitalopram Oxalate 10 MG Tablet PO (05:46)
[2018-09-07] MEDS: Cephalexin 500 MG Capsule PO ×3 (05:46→20:54)
[2018-09-07] MEDS: Enoxaparin 40 MG/0.4 ML Syringe SC (05:47)
[2018-09-07] MEDS: Senna/Docusate Sodium 1 Tablet PO (05:47)
[2018-09-07] MEDS: Pantoprazole Sodium 20 MG Tablet PO (05:47)
[2018-09-07] MEDS: Magnesium Oxide 400 MG Tablet PO ×2 (05:47→17:36)
[2018-09-07] MEDS: Polyethylene Glycol 3350 17 GM PACKET PO (05:47)
[2018-09-07] MEDS: Ascorbic Acid 500 MG Tablet PO ×2 (05:48→17:36)
[2018-09-07 05:51] LABS: Bedside Glucose 196 mg/dL (70-110)
[2018-09-07] MEDS: Insulin Lispro 100 UNIT/ML INSULN.PEN 20 UNIT SC ×3 (08:15→17:36)
[2018-09-07] MEDS: Iron Polysaccharide Complex 150 MG CAPSULE PO (08:15)
[2018-09-07 10:46] LABS: Bedside Glucose 233 mg/dL (70-110)
--- NOTE | 2018-09-07 13:02 | CASEMGMT ---
Social Work Met with resident in room. Resident requesting for discharge date to be set for 09/09/18. Team is agreeable to discharge date and recommending for resident to continue with physical and occupational therapy as well as residential at time of discharge. Resident is agreeable to recommendation and requesting for home healtah care to be set up through [facility] ([facility] Resident aware that currently recommendation would be for resident to utilize a knee walker at home in the community. Resident aware that knee walker's are not covered by insurance. Resident voicing to be unable to afford a knee walker and plans to return to using a wheelchair and rollaider as resident did prior when resident was first non-weight bearing. Resident reporting to be able to set up own transportation via family or friend. Resident declining for this socially responsible investment adviser to contact resident family in regards to discharge date. Support given. [facility] This socially responsible investment adviser making referral for physical and occupational therapy as well as residential. Order to be completed. Proposed discharge date: 09/09/18 PLAN: Discharge to home alone with home health care at time of discharge. ERIN Vargas, CANNON CREWMEMBER
[2018-09-07 14:55] VITALS: BP 127/67; PULSE 80; RESP 15; TEMP 36.9; O2SAT 93
--- NOTE | 2018-09-07 16:37 | CHAPLAIN ---
Type of Pastoral Visit _x__ Initial Visit ___ Follow-up Visit ___ On-call Visit ___ General Patient Visit ___ Spiritual Assessment ___ Family Conference ___ Bereavement ___ Rapid Response ___ Code Blue ___ Other (describe below) Pastoral Care Referral From _x__ Patient ___ Family ___ Nurse ___ Physician ___ Driller And Reamer ___ Acrobatic Dancer ___ Other (describe below) Sacrament/Intervention _x__ Active listening ___ Anointing ___ Religion ___ Bereavement ___ Communion ___ Stacey exploration ___ _x__ Life review ___ Prayer ___ Reconciliation ___ Sacrament of Sick _x__ Supportive presence ___ Wedding ___ Other (describe below) Pastoral Comments
[2018-09-07 16:51] LABS: Bedside Glucose 212 mg/dL (70-110)
--- NOTE | 2018-09-07 20:01 | DCINST_ITS ---
You will use the following diet at home:: No restrictions, Regular Your food should be the consistency of: Regular Your liquids should be the consistency of: Regular/Thin Discharge Activity: - - Use wheelchair, rollator. Weight Bearing Status: No weight bearing Call your doctor if you observe: Fever of 101 or Higher, Inability to urinate, Inability to have a bowel movement, Shortness of breath, Chest pain, Uncontrolled pain Allergies/Adverse Reactions: Allergies oxycodone HCl [From OxyContin] Allergy (Verified 08/17/18 14:04) Rash Penicillins Allergy (Verified 08/17/18 14:04) Shortness of breath Medications to take at Discharge Insulin Aspart [Novolog Flexpen] 20 units SC TIDCM 01/27/15 Ascorbic Acid 500 mg PO BID 08/22/18 Ergocalciferol [Vitamin D] 50,000 unit PO GRAY 08/22/18 Gabapentin [Neurontin] 800 mg PO TID 08/22/18 Omeprazole [Prilosec] 20 mg PO DAILY 08/22/18 Rosuvastatin Calcium [Crestor] 40 mg PO DAILY 08/22/18 Insulin Glargine [Lantus SoloStar Pen] 30 units SC BREAKFAST 08/25/18 Carboxymethylcellulose Sodium [Refresh Celluvisc] 1 each EACH EYE 4X/DAY 09/05/18 Insulin Glargine [Lantus SoloStar Pen] 35 units SC QHS 09/05/18 Magnesium Oxide [Mag-Ox 400] 400 mg PO BID 09/05/18 Ropinirole HCl [Requip] 3 mg PO 1000,2200 09/05/18 Acetaminophen [Tylenol] 1,000 mg PO Q6H PRN tablet 09/07/18 Escitalopram Oxalate [Lexapro] 10 mg PO DAILY #30 tablet 09/07/18 Gabapentin [Neurontin] 800 mg PO TIDCM tablet 09/07/18 Iron Polysaccharide Complex [Ferrex 150] 150 mg PO DAILYCM #30 capsule 09/07/18 Lactobacillus Rhamnosus GG [Culturelle] 1 each PO DAILY #30 capsule 09/07/18 Oxycodone [Oxyir] 5 mg PO Q8H PRN PRN 3 Days #10 tab 09/07/18 Polyethylene Glycol 3350 [Miralax] 17 gm PO DAILY #30 packet 09/07/18 Simethicone 80 mg PO 4X/DAY PRN PRN #120 tab.chew 09/07/18 proMETHazine tablet [Phenergan tablet] 25 mg PO Q6H PRN PRN #30 tablet 09/07/18 The following prescriptions were given: proMETHazine tablet [Phenergan tablet] 25 mg PO Q6H PRN PRN #30 tablet PRN Reason: NAUSEA/VOMITING Oxycodone [Oxyir] 5 mg PO Q8H PRN PRN 3 Days #10 tab PRN Reason: Severe Pain (-07/19) Escitalopram Oxalate [Lexapro] 10 mg PO DAILY #30 tablet Iron Polysaccharide Complex [Ferrex 150] 150 mg PO DAILYCM #30 capsule Lactobacillus Rhamnosus GG [Culturelle] 1 each PO DAILY #30 capsule Polyethylene Glycol 3350 [Miralax] 17 gm PO DAILY #30 packet Simethicone 80 mg PO 4X/DAY PRN PRN #120 tab.chew PRN Reason: Gas Primary Care Physician: Raúl Eric MD [Primary Care Provider] - Please follow up with your Primary Care Physician in: 1 week. Test Results: Test results from this visit will be discussed in further detail at your follow- up appointment, if applicable. Please Follow Up With: Landen Allen DPM CANCELED Please Follow Up With: Justin May NP-C CANCELED 09/06/18 Please Follow Up With: Raúl Eric MD CANCELED 09/06/18 Proposed Discharge Date: 09/09/18
--- NOTE | 2018-09-07 20:03 | DS.PCM_ITS ---
Discharge Date and Diagnosis Date of Admission: 09/05/18 Date of Discharge: 09/09/18 - Secondary Discharge Diagnosis Chronic Problems HLD (hyperlipidemia) (Chronic) Cellulitis (Chronic) Neuropathic pain (Chronic) GERD (gastroesophageal reflux disease) (Chronic) Hypomagnesemia (Chronic) Back pain, chronic (Chronic) Hyponatremia (Chronic) Depression (Chronic) RLS (restless legs syndrome) (Chronic) Type II diabetes mellitus, uncontrolled (Chronic) Anxiety state (Chronic) Hospital Course and Treatment Imaging Results: 09/05/18 17:32 Diet: Cardiac: Carb-Controlled Type of Dietary Supplement:: Glucerna Shake Is pt able to select menu?: Yes Diet Comments: 1600 calories Labs (Last 48 Hours) 09/05/18 09/06/18 09/06/18 20:53 05:10 05:10 WBC 9.0 RBC 3.81 L Hgb 10.7 L Hct 33.8 L MCV 88.7 MCH 28.1 MCHC 31.7 L RDW 13.6 RDW Differential 43.5 Plt Count 424 MPV 10.4 Immature Gran % (Auto) 0.200 Neut % (Auto) 74.4 H Lymph % (Auto) 19.0 [place] % (Auto) 5.0 Eos % (Auto) 1.2 Baso % (Auto) 0.2 Absolute Neuts (auto) 6.7 Absolute Lymphs (auto) 1.71 Total Counted Not Reportable Sodium 140 Potassium 4.2 Chloride 104 Carbon Dioxide 28.0 Anion Gap 8 BUN 20 H Creatinine 1.05 H Estim Creat Clear Calc 58.01 Est GFR (MDRD) Af Amer 71 Est GFR (MDRD) Non-Af 58 L BUN/Creatinine Ratio 19.0 Glucose 307 H Calcium 8.9 POC Glucose 178 H 09/06/18 09/06/18 09/06/18 06:49 11:40 17:04 WBC RBC Hgb Hct MCV MCH MCHC RDW RDW Differential Plt Count MPV Immature Gran % (Auto) Neut % (Auto) Lymph % (Auto) [place] % (Auto) Eos % (Auto) Baso % (Auto) Absolute Neuts (auto) Absolute Lymphs (auto) Total Counted Sodium Potassium Chloride Carbon Dioxide Anion Gap BUN Creatinine Estim Creat Clear Calc Est GFR (MDRD) Af Amer Est GFR (MDRD) Non-Af BUN/Creatinine Ratio Glucose Calcium POC Glucose 278 H 203 H 172 H 09/06/18 09/07/18 09/07/18 21:29 05:43 10:36 WBC RBC Hgb Hct MCV MCH MCHC RDW RDW Differential Plt Count MPV Immature Gran % (Auto) Neut % (Auto) Lymph % (Auto) [place] % (Auto) Eos % (Auto) Baso % (Auto) Absolute Neuts (auto) Absolute Lymphs (auto) Total Counted Sodium Potassium Chloride Carbon Dioxide Anion Gap BUN Creatinine Estim Creat Clear Calc Est GFR (MDRD) Af Amer Est GFR (MDRD) Non-Af BUN/Creatinine Ratio Glucose Calcium POC Glucose 256 H 196 H 233 H 09/07/18 16:31 WBC RBC Hgb Hct MCV MCH MCHC RDW RDW Differential Plt Count MPV Immature Gran % (Auto) Neut % (Auto) Lymph % (Auto) [place] % (Auto) Eos % (Auto) Baso % (Auto) Absolute Neuts (auto) Absolute Lymphs (auto) Total Counted Sodium Potassium Chloride Carbon Dioxide Anion Gap BUN Creatinine Estim Creat Clear Calc Est GFR (MDRD) Af Amer Est GFR (MDRD) Non-Af BUN/Creatinine Ratio Glucose Calcium POC Glucose 212 H Consultations 09/05/18 Consult: Onc/Wound/epidemiology intern Routine Comment: Reason for Consult:: lt foot wound vac Operations: None, - Procedures: None Summary of Care Provided: The patient is a 53 year old Female with below past medical history significant for uncontrolled diabetes mellitus, admitted from [facility] for presumed right foot plantar abscess, no surgery performed, to TCU with debility, here for rehabilitation, strengthening, wound care, prior to discharge home alone. Discharge home alone with Home Health Services. - Physical Exam Vital Signs Temp Pulse Resp BP Pulse Ox 98.5 F 80 15 127/67 H 93 09/07/18 14:55 09/07/18 14:55 09/07/18 14:55 09/07/18 14:55 09/07/18 14:55 Oxygen Delivery Method Room Air Weight: 85.2 kg Body Mass Index (BMI) 30.2 Intake and Output for Last 24 Hours 09/05/18 09/06/18 09/07/18 23:59 23:59 23:59 Intake Total 240 / 240 1200 / 1200 900 / 900 Balance 240 / 240 1200 / 1200 900 / 900 POC Glucose 09/07/18 09/07/18 09/07/18 16:31 10:36 05:43 POC Glucose 212 H 233 H 196 H 09/06/18 21:29 POC Glucose 256 H Discharge Diet: No Restrictions Discharge Activity: - - Use wheelchair, rollator. Weight Bearing Status: No weight bearing Call your doctor if you observe: Fever of 101 or Higher, Inability to urinate, Inability to have a bowel movement, Shortness of breath, Chest pain, Uncontrolled pain Home Medications: Medications to take at Discharge Insulin Aspart [Novolog Flexpen] 20 units SC TIDCM 01/27/15 Ascorbic Acid 500 mg PO BID 08/22/18 Ergocalciferol [Vitamin D] 50,000 unit PO GRAY 08/22/18 Gabapentin [Neurontin] 800 mg PO TID 08/22/18 Omeprazole [Prilosec] 20 mg PO DAILY 08/22/18 Rosuvastatin Calcium [Crestor] 40 mg PO DAILY 08/22/18 Insulin Glargine [Lantus SoloStar Pen] 30 units SC BREAKFAST 08/25/18 Carboxymethylcellulose Sodium [Refresh Celluvisc] 1 each EACH EYE 4X/DAY 09/05/18 Insulin Glargine [Lantus SoloStar Pen] 35 units SC QHS 09/05/18 Magnesium Oxide [Mag-Ox 400] 400 mg PO BID 09/05/18 Ropinirole HCl [Requip] 3 mg PO 1000,2200 09/05/18 Acetaminophen [Tylenol] 1,000 mg PO Q6H PRN tablet 09/07/18 Escitalopram Oxalate [Lexapro] 10 mg PO DAILY #30 tablet 09/07/18 Gabapentin [Neurontin] 800 mg PO TIDCM tablet 09/07/18 Iron Polysaccharide Complex [Ferrex 150] 150 mg PO DAILYCM #30 capsule 09/07/18 Lactobacillus Rhamnosus GG [Culturelle] 1 each PO DAILY #30 capsule 09/07/18 Oxycodone [Oxyir] 5 mg PO Q8H PRN PRN 3 Days #10 tab 09/07/18 Polyethylene Glycol 3350 [Miralax] 17 gm PO DAILY #30 packet 09/07/18 Simethicone 80 mg PO 4X/DAY PRN PRN #120 tab.chew 09/07/18 proMETHazine tablet [Phenergan tablet] 25 mg PO Q6H PRN PRN #30 tablet 09/07/18 Following Prescrptions Were Given to Patient: proMETHazine tablet [Phenergan tablet] 25 mg PO Q6H PRN PRN #30 tablet PRN Reason: NAUSEA/VOMITING Oxycodone [Oxyir] 5 mg PO Q8H PRN PRN 3 Days #10 tab PRN Reason: Severe Pain (6-07/19) Escitalopram Oxalate [Lexapro] 10 mg PO DAILY #30 tablet Iron Polysaccharide Complex [Ferrex 150] 150 mg PO DAILYCM #30 capsule Lactobacillus Rhamnosus GG [Culturelle] 1 each PO DAILY #30 capsule Polyethylene Glycol 3350 [Miralax] 17 gm PO DAILY #30 packet Simethicone 80 mg PO 4X/DAY PRN PRN #120 tab.chew PRN Reason: Gas Primary Care Physician: Raúl Eric MD [Primary Care Provider] - Please follow up with your Primary Care Physician in: 1 week. Please Follow Up With: Landen Allen DPM CANCELED Please Follow Up With: Justin May NP-C CANCELED 09/06/18 Please Follow Up With: Raúl Eric MD CANCELED 09/06/18 Disposition: Home with Home Health Minutes spent on discharge:: 35 Patient Condition:: Stable Medical Necessity - Tobacco Use Smoking Status: Never smoker Tobacco Use: Non-smoker Meaningful Use Info Meaningful Use Diagnoses (Choose all that apply): None applicable
--- NOTE | 2018-09-07 20:03 | HHNOTE_ITS ---
Home Health Note - Plan Overview of reason of hospitalization: The patient is a 53 year old Female with below past medical history significant for uncontrolled diabetes mellitus, admitted from [facility] for presumed right foot plantar abscess, no surgery performed, to TCU with debility, here for rehabilitation, strengthening, wound care, prior to discharge home alone. Discharge home alone with Home Health Services. Problems: Complete List of Medical Problems HLD (hyperlipidemia) (Chronic) Cellulitis (Chronic) Neuropathic pain (Chronic) GERD (gastroesophageal reflux disease) (Chronic) Hypomagnesemia (Chronic) Back pain, chronic (Chronic) Hyponatremia (Chronic) Depression (Chronic) Diabetic foot ulcer associated with type 2 diabetes mellitus (Acute) RLS (restless legs syndrome) (Chronic) Type II diabetes mellitus, uncontrolled (Chronic) Anxiety state (Chronic) - Requirements and Reasons Disciplines Needed/Ordered: Mcfp, Physical Therapy Reason for Disciplines: Disease Specific Monitoring/education, Medication Management/Knowledge Deficit, Wound Care, Gait Training, Stair Training, Fall Prevention, Home Safety/Equipment Instruction, Balance and/or Posture Training, Transfer Training Related To: Limited/Poor Endurance, Physical Impairments, Unsteady Gait/Balance, Fall Risk Patient is unable to leave the home: Without Aid of Supportive Devices (crutches, cane, wheelchair, walker), Without the assistance of another person - Additional Disciplines Additional Disciplines Needed/Ordered: Occupational Therapy
[2018-09-07] MEDS: Atorvastatin Calcium 80 MG Tablet PO (20:54)
[2018-09-07 21:16] LABS: Bedside Glucose 279 mg/dL (70-110)
[2018-09-07] MEDS: Gabapentin 800 MG Tablet PO (21:28)
[2018-09-07 22:20] VITALS: PULSE 74; RESP 18; O2SAT 95
[2018-09-08] MEDS: oxyCODONE 5 MG Tablet PO ×2 (06:31→15:48)
[2018-09-08] MEDS: Ascorbic Acid 500 MG Tablet PO ×2 (06:35→17:47)
[2018-09-08] MEDS: Magnesium Oxide 400 MG Tablet PO ×2 (06:35→17:47)
[2018-09-08] MEDS: Escitalopram Oxalate 10 MG Tablet PO (06:35)
[2018-09-08] MEDS: Pantoprazole Sodium 20 MG Tablet PO (06:35)
[2018-09-08] MEDS: Enoxaparin 40 MG/0.4 ML Syringe SC (06:37)
[2018-09-08] MEDS: Cephalexin 500 MG Capsule PO (06:37)
[2018-09-08 06:55] LABS: Bedside Glucose 173 mg/dL (70-110)
[2018-09-08] MEDS: Iron Polysaccharide Complex 150 MG CAPSULE PO (08:39)
[2018-09-08] MEDS: Insulin Lispro 100 UNIT/ML INSULN.PEN 20 UNIT SC ×3 (08:39→17:48)
[2018-09-08] MEDS: Gabapentin 800 MG Tablet PO ×3 (08:39→17:47)
--- NOTE | 2018-09-08 09:30 | CASEMGMT ---
Brief interview for mental status (BIMS) and resident mood interview (PHQ-9) completed on this day. BIMS score 15. PHQ-9 score 02/03.
--- NOTE | 2018-09-08 09:35 | CASEMGMT ---
Social Work Spoke with resident in room. This nursing home social worker collaborating with resident on further support within the home. Resident asking about the [place] [facility] Waiver. This nursing home social worker providing resident with application and assisting resident in completing application. Application for the [place] [facility] Waiver completed and faxed to [facility]. Resident still planning to discharge to home on 09/09/18 at this time. Resident aware that it can take several weeks to a month or even longer to establish with the [facility] Care Waiver. Support given. Proposed discharge date: 09/09/18 PLAN: Discharge to home alone with home health care. ERIN Vargas, [employer]VANC[employer] PRACTICE REGISTERED NURSE
[2018-09-08 10:00] VITALS: PULSE 72
[2018-09-08 11:25] LABS: Bedside Glucose 222 mg/dL (70-110)
--- NOTE | 2018-09-08 14:56 | MDS.RN ---
Pain interview for nica 09/09/18 completed.
[2018-09-08 15:43] VITALS: BP 126/61; PULSE 77; RESP 16; TEMP 36.6; O2SAT 96
[2018-09-08 16:56] LABS: Bedside Glucose 191 mg/dL (70-110)
[2018-09-08] MEDS: Atorvastatin Calcium 80 MG Tablet PO (20:40)
[2018-09-08 20:56] LABS: Bedside Glucose 359 mg/dL (70-110)
[2018-09-09] MEDS: oxyCODONE 5 MG Tablet PO (01:31)
[2018-09-09] MEDS: Glycerin/Hypromellose/PEG400 15 ml Bottle 1 DRP EACH EYE (05:56)
[2018-09-09] MEDS: Magnesium Oxide 400 MG Tablet PO (05:57)
[2018-09-09] MEDS: Ascorbic Acid 500 MG Tablet PO (05:57)
[2018-09-09] MEDS: Enoxaparin 40 MG/0.4 ML Syringe SC (05:57)
[2018-09-09] MEDS: Pantoprazole Sodium 20 MG Tablet PO (05:57)
[2018-09-09] MEDS: Escitalopram Oxalate 10 MG Tablet PO (05:57)
[2018-09-09 07:06] LABS: Bedside Glucose 237 mg/dL (70-110)
[2018-09-09] MEDS: Iron Polysaccharide Complex 150 MG CAPSULE PO (08:00)
[2018-09-09] MEDS: Gabapentin 800 MG Tablet PO (08:00)
[2018-09-09] MEDS: Insulin Lispro 100 UNIT/ML INSULN.PEN 20 UNIT SC (08:00)
[2018-09-09 11:40] LABS: Bedside Glucose 123 mg/dL (70-110)
[2018-09-09 13:23] VITALS: BP 115/64; PULSE 82; RESP 20; TEMP 36.6; O2SAT 95
--- NOTE | 2018-09-18 14:52 | MDS.RN ---
Information for the mds was obtained from review of the clinical record, interview of resident, staff, and direct observation of resident's care. resident was one assist for adls, not 2+
--- OUTSIDE RECORDS SUMMARY | 2018-11-01 07:38 | XMS RPT_ITS ---
:1965 Author Organization OHIP Support Name Relationship Address Phone D Unavailable Unavailable Unavailable ZICKEFOOSE, MARIXA Unavailable Unavailable + [place] [address] D Unavailable Unavailable Unavailable ZICKEFOOSE, MARIXA Unavailable Unavailable + [place] [address] D Unavailable Unavailable Unavailable ZICKEFOOSE, MARIXA Unavailable Unavailable + [place] [address] D Unavailable Unavailable Unavailable ZICKEFOOSE, MARIXA Unavailable Unavailable + [place] [address] D Unavailable Unavailable Unavailable ZICKEFOOSE, MARIXA Unavailable [address] + [place] [address] D Unavailable Unavailable Unavailable ZICKEFOOSE, MARIXA Unavailable [address] + [place] [address] D Unavailable Unavailable Unavailable ZICKEFOOSE, MARIXA Unavailable [address] + [place] [address] D Unavailable Unavailable Unavailable ZICKEFOOSE, MARIXA Unavailable [address] + [place] [address] D Unavailable Unavailable Unavailable ZICKEFOOSE, MARIXA Unavailable [address] + [place] [address] D Unavailable Unavailable Unavailable ZICKEFOOSE, MARIXA Unavailable [address] + [place] [address] D Unavailable Unavailable Unavailable ZICKEFOOSE, MARIXA Unavailable [address] + [place] [address] D Unavailable Unavailable Unavailable ZICKEFOOSE, MARIXA Unavailable [address] + [place] [address] D Unavailable Unavailable Unavailable ZICKEFOOSE, MARIXA Unavailable [address] + [place] [address] D Unavailable Unavailable Unavailable ZICKEFOOSE, MARIXA Unavailable [address] + [place] [address] D Unavailable Unavailable Unavailable ZICKEFOOSE, MARIXA Unavailable [address] + [place] [address] D Unavailable Unavailable Unavailable ZICKEFOOSE, MARIXA Unavailable [address] + [place] [address] D Unavailable Unavailable Unavailable ZICKEFOOSE, MARIXA Unavailable [address] + [place] [address] D Unavailable Unavailable Unavailable ZICKEFOOSE, MARIXA Unavailable [address] + [place] [address] D Unavailable Unavailable Unavailable ZICKEFOOSE, MARIXA Unavailable [address] + [place] [address] D Unavailable Unavailable Unavailable D Unavailable Unavailable Unavailable ZICKEFOOSE, MARIXA Unavailable [address] + [place] [address] D Unavailable Unavailable Unavailable MIZER, CAREN Unavailable [address] + [place] [address] ZICKEFOOSE, MARIXA Unavailable [address] + [place] [address] ARTRIP, KERA Unavailable [address] + [place] [address] Care Team Providers Name Role Phone ALEJANDRO, SENDY Attending Unavailable TESTRAKE, SENDY Referring Unavailable TESTRAKE, SENDY Referring Unavailable TESTRAKE, SENDY Referring Unavailable TESTRAKE, SENDY Attending Unavailable TESTRAKE, SENDY Referring Unavailable TESTRAKE, SENDY Attending Unavailable TESTRAKE, SENDY Referring Unavailable TESTRAKE, SENDY Referring Unavailable HOWARD ANDREWS Attending Unavailable TESTRAKE, SENDY Referring Unavailable ELDERBROCKALESSANDRO Referring Unavailable TESTRAKE, SENDY Attending Unavailable TESTRAKE, SENDY Referring Unavailable TESTRAKE, SENDY Attending Unavailable TESTRAKE, SENDY Referring Unavailable JARED, MADONNA (RES) Admitting Unavailable HARPER THOMPSON Attending Unavailable ZENY, INDIO Barclay Attending Unavailable INDIO MOURA Attending Unavailable JARED, MADONNA (RES) Referring Unavailable JUANJO TAVARES Attending Unavailable JARED, MADONNA (RES) Referring Unavailable TESTRAKE, SENDY Attending Unavailable TESTRAKE, SENDY Referring Unavailable TESTRAKE, SENDY Attending Unavailable TESTRAKE, SENDY Referring Unavailable Rosemary, Dr. Isidro Admitting Unavailable Rosemary, Dr. Isidro Attending Unavailable Markel, Saravanan Attending Unavailable Paintsil, Milford Referring Unavailable Elderbrock, Alessandro Primary Care Unavailable Agyepong, Gopi Admitting Unavailable Markel, Onamia Consulting Unavailable Jotim, Kali Attending Unavailable Agyepong, Gopi Admitting Unavailable Agyepong, Gopi Attending Unavailable [facility] [place] [place] Primary [facility] Unavailable Markel, Saravanan Consulting Unavailable Jopperi, Kali Consulting Unavailable Agyepong, Gopi Admitting Unavailable Jopperi, Kali Attending Unavailable [facility] [place], [facility] Primary Care Unavailable Markel, Onamia Consulting Unavailable Jopperi, Kali Consulting Unavailable Agyepong, Gopi Admitting Unavailable Markel, Saravanan Attending Unavailable [facility] [place], [facility] Primary Care Unavailable Markel, Saravanan Consulting Unavailable Jopperi, Kali Consulting Unavailable Agyepong, Gopi Admitting Unavailable Jopperi, Kali Attending Unavailable [facility] [place], [place] Primary Care Unavailable Markel, Saravanan Consulting Unavailable Jopperi, Kali Consulting Unavailable [facility] [place], [facility] Primary Care Unavailable Harrison Tim Attending Unavailable Eldergreat neck, Alessandro Primary Care Unavailable Richie Hughes Attending Unavailable Alessandro Perez Attending Unavailable Paintsil, Milford Admitting Unavailable Paintsil, Milford Referring Unavailable [facility] [place], [facility] Primary Care Unavailable Testrake, Sendy Consulting Unavailable Kike Tello Consulting Unavailable Testrake, Sendy Attending Unavailable [facility] [place], [place] Primary Care Unavailable Eldergreat neck, Alessandro Primary Care Unavailable Ashelfah, Ghasem Admitting Unavailable Ashelfah, Ghasem Attending Unavailable Avinash, Gagan Consulting Unavailable Ashelfah, Ghasem Admitting Unavailable Ashelfah, Ghasem Attending Unavailable [facility] [place] [place] Primary Care Unavailable Ashelfah, Ghasem Consulting Unavailable Ashelfah, Ghasem Admitting Unavailable Avinash, Gagan Attending Unavailable [facility] [place], [place] Primary Care Unavailable Avinash, Gagan Consulting Unavailable Ashelfah, Ghasem Consulting Unavailable Ashelfah, Ghasem Admitting Unavailable Ashelfah, Ghasem Attending Unavailable [facility] [place], [place] Primary Care Unavailable Avinash, Gagan Consulting Unavailable Ashelfah, Ghasem Consulting Unavailable Paintsil, Milford Admitting Unavailable Paintsil, [place]ford Referring Unavailable [facility] [place], [place] Primary Care Unavailable Testrake, Sendy Consulting Unavailable Paintsil, Milford Attending Unavailable Kike Tello Consulting Unavailable Paintsil, Milford Consulting Unavailable Paintsil, Milford Admitting Unavailable Paintsil, Milford Referring Unavailable Elderbro, [place] Primary Care Unavailable Testrake, Sendy Consulting Unavailable Aelssandro Perez Attending Unavailable Kike Tello Consulting Unavailable TerAlessandro briones Consulting Unavailable Alessandro Perez Attending Unavailable Paintsil, Milford Admitting Unavailable Paintsil, Milford Referring Unavailable Elderbro, [place] Primary Care Unavailable Testrake, Sendy Consulting Unavailable Kike Tello Consulting Unavailable Alessandro Perez Consulting Unavailable Mo, Chauncey Chi Admitting Unavailable Mo, Chauncey Chi Attending Unavailable Mo, Chauncey Chi Referring Unavailable [facility] Primary Care Unavailable Testrake, Sendy Attending Unavailable Testrake, Sendy Referring Unavailable [facility] Primary Care Unavailable Mo, Chauncey Chi Admitting Unavailable Mo, Chauncey Chi Attending Unavailable Mo, Chauncey Chi Referring Unavailable [facility] Primary Care Unavailable Testrake, Sendy Consulting Unavailable Donovan Samuels Attending Unavailable PROBLEMS PROBLEMS DATE TYPE CONDITION / CODE ATTENDING STATUS SOURCE 09/22/2018 Unknown Z95.5 - Presence of Kali Prado Active [place] coronary angioplasty Community implant and graft / Hospital Z95.5(ICD-10) Repository 09/22/2018 Unknown I25.10 - Jotim, Kali Active [place] Atherosclerotic heart Community disease of [facility] coronary artery Repository without angina pectoris / I25.10(ICD-10) 09/22/2018 Unknown E78.5 - Joppkaran, Kali Active [place] Hyperlipidemia, Community unspecified / Hospital E78.5(ICD-10) Repository 09/22/2018 Unknown I21.4 - Non-ST JoKali dumont Active [place] elevation (NSTEMI) [facility] myocardial infarction Hospital / I21.4(ICD-10) Repository 09/11/2018 Unknown E11.621 - Type 2 Mo, Chauncey Chi Active [place] diabetes mellitus with Community foot ulcer / Hospital E11.621(ICD-10) Repository 09/11/2018 Unknown L97.509 - Non-pressure Mo, Chauncey Chi Active [place] chronic ulcer of other Community part of unspecified Hospital foot with unspecified Repository severity / L97.509(ICD-10) 09/11/2018 Unknown R53.81 - Other malaise Mo, Chauncey Chi Active [place] / R53.81(ICD-10) [facility] Hospital Repository 09/05/2018 Active Type 2 diabetes THOMPSONHARPER Active [place] mellitus with diabetic Clinic Main neuropathic [place] arthropathy / Repository E11.610(ICD-10) 09/05/2018 Active Type 2 diabetes YARA HARPER Active [place] mellitus with diabetic Clinic Main polyneuropathy / [place] E11.42(ICD-10) Repository 09/05/2018 Active Hyperlipidemia, HARPER THOMPSON Active [place] unspecified / Clinic Main E78.5(ICD-10) [place] Repository 09/05/2018 Active Restless legs syndrome HARPER THOMPSON Active [place] / G25.81(ICD-10) Clinic Main [place] Repository 09/05/2018 Active Type 2 diabetes THOMPSON HARPER Active [place] mellitus with diabetic Clinic Main neuropathy, [place] unspecified / Repository E11.40(ICD-10) 09/05/2018 Active Type 2 diabetes YARA HARPER Active [place] mellitus with Clinic Main hyperglycemia / [place] E11.65(ICD-10) Repository 09/05/2018 Active Other visual THOMPSON HARPER Active [place] disturbances / Clinic Main H53.8(ICD-10) [place] Repository 09/05/2018 Active Other injury of YARA HARPER Active [place] unspecified body Clinic Main region, initial [place] encounter / Repository T14.8XXA(ICD-10) 09/05/2018 Active Local infection of the JUSTIN THOMPSONM Active [place] skin and subcutaneous Clinic Main tissue, unspecified / [place] L08.9(ICD-10) Repository 08/30/2018 Active Diarrhea, unspecified THOMPSON, HARPER Active [place] / R19.7(ICD-10) Clinic Main [place] Repository 08/30/2018 Unknown Z48.817 - Encounter Chauncey Hassan Chi Active [place] for surgical aftercare Community following surgery on Hospital the skin and Repository subcutaneous tissue / Z48.817(ICD-10) 09/18/2018 Unknown R94.31 - Abnormal Markel, Onamia Active [place] electrocardiogram Community [ECG] [EKG] / Hospital R94.31(ICD-10) Repository 08/18/2018 Active Type 2 diabetes NA Active [place] mellitus with foot Clinic [facility] ulcer / [place] E11.621(ICD-10) Repository 08/18/2018 Active Non-pressure chronic NA Active [place] ulcer of left heel and Clinic Main midfoot with fat layer [place] exposed / Repository L97.422(ICD-10) 08/18/2018 Active Non-pressure chronic NA Active [place] ulcer of right heel Clinic Main and midfoot with fat [place] layer exposed / Repository L97.412(ICD-10) 09/18/2018 Unknown M79.671 - Pain in Ellen, Active [place] right foot / [facility] Community M79.671(ICD-10) Hospital Repository 08/02/2018 Active Encounter for NA Active [place] screening for lipoid Clinic Main disorders / [place] Z13.220(ICD-10) Repository 08/02/2018 Active Vitamin D deficiency, NA Active [place] unspecified / Clinic Main E55.9(ICD-10) [place] Repository 08/02/2018 Active Other specified NA Active [place] abnormal findings of Clinic Main blood chemistry / [place] R79.89(ICD-10) Repository 06/13/2018 Active Pain in right ankle NA Active [place] and joints of right Clinic Main foot / M25.571(ICD-10) [place] Repository 06/13/2018 Active Other chronic pain / NA Active [place] G89.29(ICD-10) Clinic Main [place] Repository 04/25/2018 Active Sprain of other NA Active [place] ligament of right Clinic Main ankle, initial [place] encounter / Repository S93.491A(ICD-10) 04/25/2018 Active Effusion, right ankle NA Active [place] / M25.471(ICD-10) Clinic Main [place] Repository 04/25/2018 Active Primary NA Active [place] osteoarthritis, Clinic Main unspecified ankle and [place] foot / M19.079(ICD-10) Repository 04/25/2018 Active Pain in right foot / NA Active [place] M79.671(ICD-10) Clinic Main [place] Repository PROCEDURES PROCEDURES No Procedure Records FoundRESULTS RESULTS PROGRESS Observed: 09/26/2018 Status: COMPLETED Source: [place] 3:42 PM [facility] REPOSITORY HNO ID: [id number] Author: Pasha Bundy (Rn) Service: (none) Author Type: Registered Nurse Type: Progress Notes Filed: 09/26/2018 3:47 PM Note Text: PRIMARY CARE COORDINATION FOLLOW-UP NOTE Provider Action/FYI Noted, Thank You Patient identified by name and date of . YES Bottle Caser plan for next outreach: Follow for Care needs Signature Sophia Pak RN September 26, 2018 PROGRESS Observed: 09/26/2018 Status: COMPLETED Source: [place] 12:32 PM [facility] [place] REPOSITORY HNO ID: [id number] Author: Kaylyn Harrison Ma Service: (none) Author Type: (none) Type: Progress Notes Filed: 09/26/2018 3:47 PM Note Text: I'm routing this pt to be Care Coordinated due to multiple medical issues and re-occurrence with going into the hospital. This message and ER documentation has been sent to Sophia Pak. Kaylyn Harrison Ma PROGRESS Observed: 09/25/2018 Status: COMPLETED Source: [place] 5:39 PM [facility] REPOSITORY HNO ID: [id number] Author: Alessandro Eric Service: (none) Author Type: Physician Type: Progress Notes Filed: 09/26/2018 3:47 PM Note Text: We should try to see her for TCM. Alessandro Eric MD PROGRESS Observed: 09/25/2018 Status: COMPLETED Source: [place] 12:27 PM [facility] REPOSITORY HNO ID: [id number] Author: Kaylyn Harrison Ma Service: (none) Author Type: (none) Type: Progress Notes Filed: 09/26/2018 3:47 PM Note Text: We've received paperwork from [facility] where pt was admitted from 09/23/18-09/24/18 for NSTEMI. On discharge pt is to f/u with Cardiology in 1-2 weeks. Pt also admitted from 09/20/18-09/22/18 Please review pt paperwork (on desk), let me know if this is someone you want to see as she has frequent hospital stays/visits. Kaylyn Harrison Ma 12 LEAD ELECTROCARDIOGRAM Observed: 09/25/2018 Status: F Source: [place] 7:[address] [facility] REPOSITORY [facility] Cardiovascular Services [address] [place] [address] 12 Lead EKG 09/21/18 0911 MR#: [id number] Acct: [id number] Name: DIONY CARRILLO Rep #: [id number] : 1965 53 From: Saravanan Jean Baptiste MD Attending Dr: Deepa Irizarry Status: DIS MITCH Ordering Dr: Anjum Asencio DO Date: 09/23/18 Location: [facility] Sex: F C Admitted: 09/23/18 Test Reason : POST PCI Blood Pressure : / mmHG Vent. Rate : 076 BPM Atrial Rate : 076 BPM P-R Int : 164 ms QRS Dur : 084 ms QT Int : 410 ms P-R-T Axes : 040 024 075 degrees QTc Int : 461 ms Normal sinus rhythm Septal infarct , age undetermined Abnormal ECG When compared with ECG of 21-SEP-2018 00:51, MANUAL COMPARISON REQUIRED, DATA IS UNCONFIRMED Confirmed by MARKEL DELVALLE, SARAVANAN ([id number]), food editor MARLON GALEANA ([id number]) on 09/25/2018 7:58:11 AM Referred By: Confirmed By:SARAVANAN JEAN BAPTISTE MD 09/25/18 0758 Date Saravanan Jean Baptiste MD CC: Deepa Irizarry; Alessandro Eric MD; Anjum Asencio DO Signed 12 LEAD ELECTROCARDIOGRAM Observed: 09/25/2018 Status: F Source: [place] 7:57 AM [facility] REPOSITORY [facility] Cardiovascular Services [address] [place] [address] 12 Lead EKG 09/21/18 1155 MR#: [id number] Acct: [id number] Name: DIONY CARRILLOE Rep #: [id number] : 1965 53 From: Saravanan Jean Baptiste MD Attending Dr: Kali Prado DO Status: DIS IN Ordering Dr: Gustavo Cleary MD Date: 09/21/18 Location: ICU Sex: F C Admitted: 09/21/18 Test Reason : CHEST PAIN Blood Pressure : / mmHG Vent. Rate : 081 BPM Atrial Rate : 081 BPM P-R Int : 162 ms QRS Dur : 086 ms QT Int : 396 ms P-R-T Axes : 027 016 083 degrees QTc Int : 460 ms Normal sinus rhythm Septal infarct , age undetermined Abnormal ECG No previous ECGs available Confirmed by SARAVANAN JEAN BAPTISTE MD ([id number]), food editor MARLON GALEANA ([id number]) on 09/25/2018 7:57:16 AM Referred By: DILCIA Confirmed By:SARAVANAN JEAN BAPTISTE MD 09/25/18 0757 Date Saravanan Jean Baptiste MD CC: Gustavo Cleary MD; Kali Prado DO; Alessandro Eric MD Signed 12 LEAD ELECTROCARDIOGRAM Observed: 09/25/2018 Status: F Source: [place] 7:[address] [facility] REPOSITORY [facility] Cardiovascular Services [address] [place] [id number] 12 Lead EKG 09/22/18 0409 MR#: [id number] Acct: [id number] Name: DIONY CARRILLO Rep #: [id number] : 1965 53 From: Saravanan Jean Baptiste MD Attending Dr: Kali Prado DO Status: DIS IN Ordering Dr: Gustavo Cleary MD Date: 09/22/18 Location: ICU Sex: F C Admitted: 09/21/18 Test Reason : AM EKG Blood Pressure : / mmHG Vent. Rate : 082 BPM Atrial Rate : 082 BPM P-R Int : 156 ms QRS Dur : 082 ms QT Int : 414 ms P-R-T Axes : 047 014 145 degrees QTc Int : 483 ms Normal sinus rhythm Septal infarct , age undetermined T wave abnormality, consider lateral ischemia Abnormal ECG When compared with ECG of 21-SEP-2018 09:11, MANUAL COMPARISON REQUIRED, DATA IS UNCONFIRMED Confirmed by MARKEL DELVALLE, SARAVANAN ([id number]), food editor MARLON GALEANA ([id number]) on 09/25/2018 7:55:54 AM Referred By: TERESSA Confirmed By:SARAVANAN JEAN BAPTISTE MD 09/25/18 0756 Date Saravanan Jean Baptiste MD CC: Gustavo Cleary MD; Kali Prado DO; Alessandro Eric MD Signed CNPTOUTREACH Observed: 09/25/2018 Status: COMPLETED Source: [place] 12:00 AM [facility] REPOSITORY Patient Outreach (FAMPWS) DIONY CARRILLO ([id number]) 1965 F Date Time Provider Department 09/25/18 ALESSANDRO ERIC During your visit today, we recorded the following information about you: Kaylyn Harrison Ma 09/26/2018 3:47 PM Signed We've received paperwork from [facility] where pt was admitted from 09/23/18-09/24/18 for NSTEMI. On discharge pt is to f/u with Cardiology in 1- 2 weeks. Pt also admitted from 09/20/18-09/22/18 Please review pt paperwork (on desk), let me know if this is someone you want to see as she has frequent hospital stays/visits. Kalyyn Eric MD 09/26/2018 3:47 PM Signed We should try to see her for TCM. MD Kaylyn Castillo Ma 09/26/2018 3:47 PM Signed I'm routing this pt to be Care Coordinated due to multiple medical issues and re-occurrence with going into the hospital. This message and ER documentation has been sent to Sophia Pak. Kaylyn Pak RN 09/26/2018 3:47 PM Signed PRIMARY CARE COORDINATION FOLLOW-UP NOTE Provider Action/FYI Noted, Thank You Patient identified by name and date of . YES Bottle Caser plan for next outreach: Follow for Care needs Signature Sophia Pak RN September 26, 2018 Allergies As of Date: 09/25/2018 Noted Allergy Reaction OXYCONTIN (OXYCODONE HCL) 09/27/2007 Comments: itch PENICILLINS 06/02/2007 4 - Hives REQUIP (ROPINIROLE) 11/18/2015 5 - Intolerance Comments: Vomiting, panic attacks, itching Date Reviewed: 09/19/2018 Reviewed by: Cecy Carbajal RN - Fully Assessed Reason for Visit: Transition Of Care [2061] Cmt: Hospital f/u. Stripper [facility] [employer] [facility] [8576] Reason For Visit History Recorded Prescriptions as of 09/25/2018 Sig: ACETAMINOPHEN 325 MG TABLET Take 2 tablets by mouth every* ASCORBIC ACID (VITAMIN C) 500* Take 1 tablet by mouth twice * BLOOD SUGAR DIAGNOSTIC STRIPS Check blood sugar readings 2-* BLOOD SUGAR DIAGNOSTIC STRIPS Test blood sugar(s) 3- 4 times* BLOOD SUGAR DIAGNOSTIC STRIPS Use as instructed. Tests bloo* BLOOD-GLUCOSE METER 1 Units as directed. Dx: E11.* BLOOD-GLUCOSE METER KIT 1 Each as needed. CARBOXYMETHYLCELLULOSE SODIUM* Use 1 Drop in both eyes four * DOCUSATE SODIUM 100 MG CAPSULE Take 1 capsule by mouth twice* ERGOCALCIFEROL (VITAMIN D2) 5* Take 1 capsule by mouth once * INSULIN ASPART U-100 100 UNI* Inject 20 Units subcutaneousl* INSULIN GLARGINE (U-100) 100 * Inject 30 units subcutaneousl* PEN NEEDLE, DIABETIC 31 GAUGE* Use as directed four times da* LANCETS Check blood sugar readings 2-* LANCETS Test 2-3 times a day MAGNESIUM OXIDE 400 MG (241.3* Take 1 tablet by mouth twice * OMEPRAZOLE 20 MG CAPSULE,JR* Take 1 capsule by mouth daily* OXYCODONE 5 MG TABLET Take 1 tablet by mouth every * PROMETHAZINE 25 MG TABLET Take 1 tablet by mouth every * PSYLLIUM ORAL PACKET Take 1 Packet by mouth once d* ROPINIROLE 3 MG TABLET Take 1 tablet by mouth twice * ROSUVASTATIN 40 MG TABLET Take 1 tablet by mouth once d* SIMETHICONE 80 MG CHEWABLE TA* Take 1 tablet by mouth four t* Problem List As Of Date 09/25/2018 Noted Resolved Reaction, adjustment, with depressed mood, prol*INVALID FOR* More... Diabetic polyneuropathy associated with type 2 *INVALID FOR* More... Restless legs syndrome (RLS) [G25.81] INVALID FOR* More... 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 Osteomyelitis (HCC) [M86.9] INVALID FOR* More... Clostridium difficile infection [B96.89] INVALID FOR* More... Urinary hesitancy [R39.11] INVALID FOR*05/30/2015 More... SUMMARY INVALID FOR* More... Urinary hesitancy [R39.11] INVALID FOR*06/04/2015 More... RLS (restless legs syndrome) [G25.81] INVALID FOR* More... Anxiety neurosis [F41.1] INVALID FOR* More... Positive urine drug screen [R82.5] INVALID FOR* More... Charcot foot due to diabetes mellitus (HCC) [E1*INVALID FOR* Wound infection [T14.8XXA, L08.9] INVALID FOR* More... Hyperlipidemia [E78.5] INVALID FOR* More... Blurry vision [H53.8] INVALID FOR* More... Diarrhea [R19.7] INVALID FOR*09/05/2018 More... Obesity, Class I, BMI 30-34.9 [E66.9] INVALID FOR* Encounter Status:Closed by SOPHIA PAK on 09/26/18 DISCHARGE SUMMARY Observed: 09/24/2018 Status: F Source: [place] 1:[address] [facility] REPOSITORY [facility] Medical Records Department [address] [place] [address] Discharge Summary 09/24/18 1336 MR#: [id number] Acct: [id number] Name: DIONY CARRILLO Rep #: [id number] : 1965 53 From: Deepa Irizarry MD PCP: Jeaneth DELVALLE,Alessandro Status: DIS MITCH Y Location: [place] [address] Discharge Date and Diagnosis Date of Admission: 09/23/18 Date of Discharge: 09/24/18 - Primary Discharge Diagnosis Chest pain in context of recent history of acute non-ST elevation PR status post PCI/DARA to mid and proximal LAD, acute or new coronary syndrome ruled out, could be due to coronary vasospasm. - Secondary Discharge Diagnosis Chronic Problems (Last Updated 09/23/18 @ 13:26 by Deepa Irizarry MD) HLD (hyperlipidemia) (Chronic) Neuropathic pain (Chronic) GERD (gastroesophageal reflux disease) (Chronic) Hypomagnesemia (Chronic) Back pain, chronic (Chronic) Depression (Chronic) Diabetic foot ulcer associated with type 2 diabetes mellitus (Chronic) RLS (restless legs syndrome) (Chronic) Type II diabetes mellitus, uncontrolled (Chronic) Anxiety state (Chronic) Hospital Course and Treatment Imaging Results: Clinical Impression(s) from Imaging Studies Chest X-Ray 09/23/18 11:55 Consultations 09/23/18 15:16 Consult: Onc/Wound/cook chili Routine Comment: Reason for Consult:: left foot wound Dr. Da Silva, cardiology. Operations: None, - Procedures: EKG Summary of Care Provided: Patient seen and examined on the day of discharge and appeared to be stable to be discharged home. She denied any more chest pain. She denied any associated symptoms such as shortness of breath, dizziness, palpitation, nausea, sweating, syncope or presyncope. Her vital signs are stable. The patient is a 53 year old F presented to the emergency room because of chest pain and she was admitted for observation. The day before admission, patient had acute ST elevation PR, underwent cardiac catheterization and she had PCI/DARA to mid and proximal LAD. During this admission, EKG performed and repeated this morning and both revealed no evidence of acute ischemic changes. Her troponin was elevated but was trending down from 2 days ago when she was admitted for acute ST elevation PR. Overnight, repeat troponin was trending down. Today, patient has no more chest pain. Her vital signs remained stable. Cardiology consulted and recommended start patient on isosorbide mononitrate daily for possible coronary vasospasm. Today, patient felt better, no more pain. Her vital signs remained stable. Routine blood work was unremarkable. Patient was discharged home in a stable medical condition, discharged on her medications including aspirin, Plavix, statins, beta-blockers and MYLA inhibitors, started on isosorbide mononitrate, recommended follow-up with PCP in 1 week and follow-up with cardiology in 2 weeks. - Physical Exam General: Alert, Oriented x3, Cooperative, No apparent distress HEENT: Atraumatic, PERRLA, EOMI, Normocephalic Oral: Moist Mucosa, No Gingival or Mucosal Lesions/ Ulcerations Neck: Supple, No JVD, Negative Carotid Bruits, Trachea Midline, Thyroid Normal Size and Texture Lungs: Clear to auscultation, No rhonchi, No wheeze, No rales Cardiovascular: Regular rate, Regular Rhythm, Normal S1, Normal S2 Abdomen: Bowel Sounds Present, Soft, Non Tender, Non-Distended, No Hepato-splenomegaly Extremities: No clubbing, No cyanosis, No edema Skin: No rashes Lymphatic: No Cervical, Supraclavicular, or Inguinal Adenopathy Neurological: Cranial nerves II-XII grossly intact, Neuro grossly intact Psych/Mental Status: Normal Affect, Appropriate Vital Signs Temp Pulse Resp BP Pulse Ox 98.1 F 91 14 153/88 H 97 09/24/18 09:05 09/24/18 11:00 09/24/18 09:05 09/24/18 09:05 09/24/18 09:05 Oxygen Delivery Method Room Air Weight: 183 lb 4.8 oz Body Mass Index (BMI) 29.5 Finger Stick Blood Glucose 227 Intake and Output for Last 24 Hours Intake Total 240 / 240 500 / 500 Balance 240 / 240 500 / 500 Laboratory Tests Past 24 Hrs Troponin I 2.380 H* 2.240 H* POC Glucose POC Glucose 391 H 298 H 280 H POC Glucose 318 H Discharge Activity: Return to Normal Activity Weight Bearing Status: Full weight bearing Call your doctor if you observe: Fever of 101 or Higher, Shortness of breath, Dizziness, Fainting spells, Chest pain, Increased palpitations (irregular heartbeat), Uncontrolled pain Home Medications: Medications to take at Discharge Acetaminophen [Tylenol Tablet] 650 mg PO Q6H PRN PRN 09/20/18 Ascorbic Acid [Vitamin C] 500 mg PO BIDCM 09/20/18 Celluvisc 1 drop OP 4X/DAY 09/20/18 Gabapentin [Neurontin] 800 mg PO TIDCM 09/20/18 Insulin Aspart [Novolog Flexpen] 20 units SC TIDCM 09/20/18 Insulin Glargine [Lantus SoloStar Pen] 30 units SC 0800 09/20/18 Ropinirole HCl [Requip] 3 mg PO BID 09/20/18 Clopidogrel Bisulfate [Plavix] 75 mg PO DAILY #30 tab 09/22/18 Aspirin E.C. [Ecotrin] 81 mg PO DAILY 09/23/18 Atorvastatin Calcium [Lipitor] 80 mg PO QHS 09/23/18 Lisinopril [Zestril] 5 mg PO DAILY 09/23/18 Metoprolol Tartrate [Lopressor (beta kunal)] 12.5 mg PO BID 09/23/18 Omeprazole [Prilosec] 20 mg PO DAILY 09/23/18 Rosuvastatin Calcium [Crestor] 40 mg PO QHS 09/23/18 Isosorbide Mononitrate [Imdur] 30 mg PO DAILY #30 tablet 09/24/18 Following Prescrptions Were Given to Patient: Isosorbide Mononitrate [Imdur] 30 mg PO DAILY #30 tablet Primary Care Physician: Alessandro Eric MD [Primary Care Provider] - Please follow up with your Primary Care Physician in: 1 week. Please Follow Up With: Saravanan Jean Baptiste MD When: 2 weeks. Disposition: Home Minutes spent on discharge:: 24 Patient Condition:: Stable Medical Necessity - Tobacco Use Smoking Status: Never smoker Meaningful Use Info Meaningful Use Diagnoses (Choose all that apply): None applicable Code Visit OBSV E AND M: 20213 Observation care discharge 09/24/18 1342 <Electronically signed by Deepa Irizarry MD> Date Deepa Irizarry MD Cosigner Signature (if applicable): Date CC: Saravanan Jean Baptiste MD; Deepa Irizarry; Alessandro Eric MD Signed DISCHARGE INSTRUCTION Observed: 09/24/2018 Status: F Source: [place] 11:[address] [facility] REPOSITORY [facility] Medical Records Department [address] [place] [address] Instructions for Home/Discharge Instructions 09/24/18 1142 MR#: [id number] Acct: [id number] Name: DIONY CARRILLO Rep #: [id number] : 1965 53 From: Deepa Irizarry MD PCP: Jeaneth DELVALLE,Alessandro Status: ADM MITCH - Discharge Diagnoses Current Active Problems: Current Active and Chronic Problems (Last Updated 09/23/18 @ 13:26 by Deepa Irizarry MD) Chest pain (Acute) You will use the following diet at home:: Calorie/Carbohydrate Controlled (specify 1200, 1400, etc) - 1800 jose., Cardiac Your food should be the consistency of: Regular Discharge Activity: Return to Normal Activity Weight Bearing Status: Full weight bearing Call your doctor if you observe: Fever of 101 or Higher, Shortness of breath, Dizziness, Fainting spells, Chest pain, Increased palpitations (irregular heartbeat), Uncontrolled pain Allergies/Adverse Reactions: Allergies oxycodone HCl [From OxyContin] Allergy (Verified 09/20/18 20:55) Rash Penicillins Allergy (Verified 09/20/18 20:55) Shortness of breath Medications to take at Discharge Acetaminophen [Tylenol Tablet] 650 mg PO Q6H PRN PRN 09/20/18 Ascorbic Acid [Vitamin C] 500 mg PO BIDCM 09/20/18 Celluvisc 1 drop OP 4X/DAY 09/20/18 Gabapentin [Neurontin] 800 mg PO TIDCM 09/20/18 Insulin Aspart [Novolog Flexpen] 20 units SC TIDCM 09/20/18 Insulin Glargine [Lantus SoloStar Pen] 30 units SC 0800 09/20/18 Ropinirole HCl [Requip] 3 mg PO BID 09/20/18 Clopidogrel Bisulfate [Plavix] 75 mg PO DAILY #30 tab 09/22/18 Aspirin E.C. [Ecotrin] 81 mg PO DAILY 09/23/18 Atorvastatin Calcium [Lipitor] 80 mg PO QHS 09/23/18 Lisinopril [Zestril] 5 mg PO DAILY 09/23/18 Metoprolol Tartrate [Lopressor (beta kunal)] 12.5 mg PO BID 09/23/18 Omeprazole [Prilosec] 20 mg PO DAILY 09/23/18 Rosuvastatin Calcium [Crestor] 40 mg PO QHS 09/23/18 Isosorbide Mononitrate [Imdur] 30 mg PO DAILY #30 tablet 09/24/18 The following prescriptions were given: Isosorbide Mononitrate [Imdur] 30 mg PO DAILY #30 tablet Primary Care Physician: Alessandro Eric MD [Primary Care Provider] - Please follow up with your Primary Care Physician in: 1 week. Test Results: Test results from this visit will be discussed in further detail at your follow-up appointment, if applicable. Please Follow Up With: Saravanan Jean Baptiste MD When: 2 weeks. 09/24/18 1143 <Electronically signed by Deepa Irizarry MD> Date Deepa Irizarry MD CC: Gagan Da Silva MD; Alessandro Eric MD CONSULTATION Observed: 09/24/2018 Status: F Source: [place] 11:41 [facility] REPOSITORY [facility] Medical Records Department [address] [place] [address] Consultation 09/24/18 1135 MR#: [id number] Acct: [id number] Name: DIONY CARRILLO Rep #: [id number] : 1965 53 From: Gagan Da Silva MD PCP: Jeaneth DELVALLE,Alessandro Status: ADM MITCH Y Location: [place] [address] Problem List (1) Chest pain Status: Acute Reason for Consult Date of Consultation: 09/24/18 History of Present Illness: The patient is a 53 year old F who was admitted to the hospital recently with a non-ST elevation myocardial infarction. Subsequently she has had coronary angiography performed which showed significant lesions in the mid and proximal left anterior descending artery. Successful percutaneous revascularization was performed with placement of 2 drug-eluting stent. Patient was then discharged home. Yesterday, the patient again experienced some left-sided chest discomfort. She describes it as different from her symptoms when she had a non-ST elevation myocardial infarction. Denies any associated shortness of breath. No nausea or vomiting. She describes some radiation to the left shoulder. She cannot identify any precipitating, exacerbating or relieving factors. Presently she is pain-free. [] Past Medical History Allergies/Adverse Reactions: Allergies oxycodone HCl [From OxyContin] Allergy (Verified 09/20/18 20:55) Rash Penicillins Allergy (Verified 09/20/18 20:55) Shortness of breath Home Medications: Ambulatory Orders Medication Instructions Recorded Past Medical History (Chronic Problems): Chronic Problems (Last Updated 09/23/18 @ 13:26 by Deepa Irizarry MD) HLD (hyperlipidemia) (Chronic) Neuropathic pain (Chronic) GERD (gastroesophageal reflux disease) (Chronic) Hypomagnesemia (Chronic) Back pain, chronic (Chronic) Depression (Chronic) Diabetic foot ulcer associated with type 2 diabetes mellitus (Chronic) RLS (restless legs syndrome) (Chronic) Type II diabetes mellitus, uncontrolled (Chronic) Anxiety state (Chronic) Surgical History: - - status post I AND D of R foot 5th metatarsal abscess, 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 Bilateral carpal tunnel surgery 1994, right shoulder surgery in 1994, section x2. Psychiatric History: Anxiety, Depression BEHAVIORAL THERAPIST History: No pertinent BEHAVIORAL THERAPIST history - *Family History Maternal History Items: Cancer - Patient had a brother who had testicular cancer; and later cancer in his stomach., Diabetes, Hypertension, - - Her mother at the age of 67 to a blood clot to the brain. She had had multiple strokes preceding that. Patient had 3 brothers who had bypass surgery in their 50s. Paternal History Items: - - Patient states her father when she was 5 years old, denies known medical history, denies known cardiac history. Sibling History Items: - - She has one brother who is secondary to cancer and she does not know what kind of cancer he had. She also has 3 brothers with a history of cardiovascular disease, stents and coronary artery bypass grafting. Lives: Alone Smoking Status: Never smoker Alcohol: None Drugs: None Review of Systems - Review of Systems General: Denies: Fever, Chills HEENT: Denies: Vision Change Cardiovascular: Reports: Chest Discomfort at Rest. Denies: Shortness of Breath, Orthopnea, PND Respiratory: Denies: Cough, Hemoptysis Gastrointestinal: Denies: Abdominal Discomfort, Jaundice, Nausea Hematologic/ Lymphatic: Denies: Easy Brusing, Easy Bleeding Subjectve: Comfortable. No apparent distress Objective: Vital Signs Temp Pulse Resp BP Pulse Ox 98.1 F 91 14 153/88 H 97 09/24/18 09:05 09/24/18 11:00 09/24/18 09:05 09/24/18 09:05 09/24/18 09:05 Oxygen Delivery Method Room Air Weight: 83.143 kg Body Mass Index (BMI) 29.5 Finger Stick Blood Glucose 227 Intake and Output for Last 24 Hours Intake Total 240 / 240 Balance 240 / 240 General: Healthy Appearing, Awake, Alert, Oriented x 3, No Acute Distress HEENT: Atraumatic, Normocephalic Oral: Moist Mucosa Neck: Supple, No JVD Lungs: Clear to auscultation Cardiovascular: Regular Rhythm, Normal S1, Normal S2 Abdomen: Bowel Sounds Present, Soft, Non Tender Extremities: No edema Neurological: No Focal Motor or Sensory Deficit Psych/Mental Status: Appropriate 09/23/18 11:45: WBC 7.7, RBC 4.08 L, Hgb 11.5 L, Hct 34.9 L, MCV 85.5, MCH 28.2, MCHC 33.0, RDW 13.4, RDW Differential 41.6, Plt Count 319, MPV 10.8, Immature Gran % (Auto) 0.100, Neut % (Auto) 74.8 H, Lymph % (Auto) 16.3 L, [place] % (Auto) 5.2, Eos % (Auto) 3.2, Baso % (Auto) 0.4, Absolute Neuts (auto) 5.8, Total Counted Not Reportable 09/23/18 11:45: Sodium 139, Potassium 3.8, Chloride 104, Carbon Dioxide 27.0, Anion Gap 8, BUN 8, Creatinine 0.86, Est GFR (MDRD) Af Amer 89, Est GFR (MDRD) Non-Af 74, BUN/Creatinine Ratio 9.3 L, Glucose 255 H, Calcium 9.2, Troponin I 2.570 H* 09/23/18 14:34: Troponin I 2.380 H* 09/23/18 17:50: Troponin I 2.240 H* Rhythm: Normal sinus rhythm EKG: EKG shows T wave changes in anterior leads that are similar to the ones on previous EKG. ECHO: Stress Test: Cardiac Cath: PCI: CT Surgery: Holter monitor: EPS: PPM: CXR: Chest CT Scan: Assessment/Plan 1. Chest pain. Patient clearly identifies it as different than her anginal/coronary symptoms. Presently pain-free. Troponins trending down from her recent non-ST elevation myocardial infarction. Doubt acute coronary syndrome. Continue present medications. No further investigation. For the possibility that she may have had some vasospasm, start on Imdur 30 mg once daily. 2. Counseled regarding the portance of compliance with medications. 3. Hypertension. Continue current medications. Add Imdur. Titrate medications as needed. 4. Dyslipidemia. Follow-up as outpatient with Dr. Jean Baptiste in 1-2 weeks time. 09/24/18 1141 <Electronically signed by Gagan Da Silva MD> Date Gagan Da Silva MD Cosigner Signature (if applicable): Date CC: Gagan Da Silva MD; Alessandro Eric MD Signed DISCHARGE INSTRUCTION Observed: 09/24/2018 Status: F Source: [place] 11:[address] [facility] REPOSITORY [facility] Medical Records Department [address] [place] [address] Instructions for Home/Discharge Instructions 09/24/18 1135 MR#: [id number] Acct: [id number] Name: DIONY CARRILLO Rep #: [id number] : 1965 53 From: Deepa Irizarry MD PCP: Alessandro Eric MD Status: ADM MITCH You will use the following diet at home:: Calorie/Carbohydrate Controlled (specify 1200, 1400, etc) - 1800 jose., Cardiac Your food should be the consistency of: Regular, Mechanical soft (ground) Discharge Activity: Return to Normal Activity Weight Bearing Status: Full weight bearing Call your doctor if you observe: Fever of 101 or Higher, Shortness of breath, Dizziness, Fainting spells, Chest pain, Increased palpitations (irregular heartbeat), Uncontrolled pain Allergies/Adverse Reactions: Allergies oxycodone HCl [From OxyContin] Allergy (Verified 09/20/18 20:55) Rash Penicillins Allergy (Verified 09/20/18 20:55) Shortness of breath Medications to take at Discharge Acetaminophen [Tylenol Tablet] 650 mg PO Q6H PRN PRN 09/20/18 Ascorbic Acid [Vitamin C] 500 mg PO BIDCM 09/20/18 Celluvisc 1 drop OP 4X/DAY 09/20/18 Gabapentin [Neurontin] 800 mg PO TIDCM 09/20/18 Insulin Aspart [Novolog Flexpen] 20 units SC TIDCM 09/20/18 Insulin Glargine [Lantus SoloStar Pen] 30 units SC 0800 09/20/18 Ropinirole HCl [Requip] 3 mg PO BID 09/20/18 Clopidogrel Bisulfate [Plavix] 75 mg PO DAILY #30 tab 09/22/18 Aspirin E.C. [Ecotrin] 81 mg PO DAILY 09/23/18 Atorvastatin Calcium [Lipitor] 80 mg PO QHS 09/23/18 Lisinopril [Zestril] 5 mg PO DAILY 09/23/18 Metoprolol Tartrate [Lopressor (beta kunal)] 12.5 mg PO BID 09/23/18 Omeprazole [Prilosec] 20 mg PO DAILY 09/23/18 Rosuvastatin Calcium [Crestor] 40 mg PO QHS 09/23/18 Primary Care Physician: Alessandro Eric MD [Primary Care Provider] - Please follow up with your Primary Care Physician in: 1 week. Test Results: Test results from this visit will be discussed in further detail at your follow-up appointment, if applicable. Please Follow Up With: Saravanan Jean Baptiste MD When: 2 weeks. 09/24/18 1136 <Electronically signed by Deepa Irizarry MD> Date Deepa Irizarry MD CC: Gagan Da Silva MD; Alessandro Eric MD BEDSIDE GLUCOSE Collected: 09/24/2018 Status: F Source: [place] 11:[address] [facility] REPOSITORY TYPE CODE TESTS RESULT OUT OF REFERENCE UNITS RANGE LAB L501.080 70-110 mg/dL High BEDSIDE GLU 391 Result Comment: MANAGEMENT OF PATIENT CARE PER NURSING PROTOCOL Performed By: #### L501.080 #### [facility] Point of Care [address] [place], [place] [id number] BEDSIDE GLUCOSE Collected: 09/24/2018 Status: F Source: [place] 7:[address] [facility] REPOSITORY TYPE CODE TESTS RESULT OUT OF REFERENCE UNITS RANGE LAB L501.080 70-110 mg/dL High BEDSIDE GLU 298 Result Comment: MANAGEMENT OF PATIENT CARE PER NURSING PROTOCOL Performed By: #### L501.080 #### [facility] Point of Care [address] [place] [address] BEDSIDE GLUCOSE Collected: 09/24/2018 Status: F Source: [place] 4:[address] [facility] REPOSITORY TYPE CODE TESTS RESULT OUT OF REFERENCE UNITS RANGE LAB L501.080 70-110 mg/dL High BEDSIDE GLU 280 Result Comment: MANAGEMENT OF PATIENT CARE PER NURSING PROTOCOL Performed By: #### L501.080 #### [facility] Point of Care [address] [place], [place] [address] BEDSIDE GLUCOSE Collected: 09/23/2018 Status: F Source: [place] 9:[address] [facility] REPOSITORY TYPE CODE TESTS RESULT OUT OF REFERENCE UNITS RANGE LAB L501.080 70-110 mg/dL High BEDSIDE GLU 318 Result Comment: MANAGEMENT OF PATIENT CARE PER NURSING PROTOCOL Performed By: #### L501.080 #### [facility] Point of Care [address] [place] [address] TROPONIN-I Collected: 09/23/2018 Status: F Source: [place] 5:[address] [facility] REPOSITORY Order Comment: 'TROP' Serial specimen #1, #2 or #3: 3 TYPE CODE TESTS RESULT OUT OF RANGE REFERENCE UNITS LAB L501.4010 <0.045 ng/mL High alert 2.240 TROPONIN-I Result Comment: Critical Result(s) Called GENEVIEVE NIEVES at: 19:35:30 09/23/2018 by: JERAD ASHTON TROPONIN-I EXPECTED VALUES <0.045 Negative 0.045 - 0.590 Consistent with Cardiac Damage > OR = 0.600 Critical Value Not every elevated troponin is indicative of PR. These values should be used with clinical judgement in examining the patient's clinical picture for diagnosis. To establish a diagnosis of PR versus myocardial injury, there must be a demonstrated rise and/or fall in the troponin values, in addition to ischemic symptoms, EKG changes, new regional wall motion abnormality, and/or angiographical evidence. PLEASE NOTE: REFERENCE RANGES EDITED 18 Performed By: #### L501.4010 #### [facility] [address] [place], [place], [address] HISTORY AND PHYSICAL Observed: 09/23/2018 Status: F Source: [place] EXAM 1:[address] [facility] REPOSITORY [facility] Medical Records Department [address] [place] [address] History and Physical 09/23/18 1326 MR#: [id number] Acct: [id number] Name: GERARDODIONY ARNOLD Rep #: [id number] : 1965 53 From: Deepa Irizarry MD PCP: Jeaneth DELVALLE,Alessandro Status: ADM MITCH Y Location: [place] [address] Problem List (1) NSTEMI (non-ST elevated myocardial infarction) Status: Acute (2) HLD (hyperlipidemia) Status: Chronic (3) GERD (gastroesophageal reflux disease) Status: Chronic (4) Depression Status: Chronic (5) RLS (restless legs syndrome) Status: Chronic (6) Type II diabetes mellitus, uncontrolled Status: Chronic (7) Anxiety state Status: Chronic History of Present Illness Date of Admission: 09/23/18 Chief Complaint: Chest pain. The patient is a 53 year old F with past medical history as mentioned above presented to the emergency room because of chest pain. Her symptoms started last night around 8 PM when she was sitting on a chair, started complaining of left-sided chest pain, dull aching pain, 7 out of 10 severity, intermittent, radiates to her left arm, no associated symptoms and no aggravating or relieving factors. She denied associated shortness of breath, palpitation, dizziness, sweating, nausea or vomiting. She mentioned the pain has been intermittent, comes and goes and nothing specific that brings pain up. Patient was discharged from the hospital yesterday, was admitted for acute non-ST elevation PR, underwent cardiac catheterization with PTCA/DARA to mid LAD and proximal LAD. She stated that she did not take her Plavix today. In the emergency department, her vital signs are stable. Her routine blood work was remarkable for chronic anemia, otherwise normal. Her troponin is 2.57. Troponin was 7.73-day before yesterday. Her EKG revealed normal sinus rhythm, no evidence of acute ST elevation. Chest x-ray showed no acute findings. She is being admitted for chest pain for evaluation. Past Medical History Past Medical History (Chronic Problems): Chronic Problems (Last Updated 09/23/18 @ 13:26 by Deepa Irizarry MD) HLD (hyperlipidemia) (Chronic) Neuropathic pain (Chronic) GERD (gastroesophageal reflux disease) (Chronic) Hypomagnesemia (Chronic) Back pain, chronic (Chronic) Depression (Chronic) Diabetic foot ulcer associated with type 2 diabetes mellitus (Chronic) RLS (restless legs syndrome) (Chronic) Type II diabetes mellitus, uncontrolled (Chronic) Anxiety state (Chronic) Medical History: Medical History (Last Updated 09/23/18 @ 13:26 by Deepa Irizarry MD) HLD (hyperlipidemia) (Chronic) E78.5 Allergies oxycodone HCl [From OxyContin] Allergy (Verified 09/20/18 20:55) Rash Penicillins Allergy (Verified 09/20/18 20:55) Shortness of breath Home Medications: Ambulatory Orders Medication Instructions Recorded Acetaminophen [Tylenol Tablet] 650 mg PO Q6H PRN PRN 09/20/18 Ascorbic Acid [Vitamin C] 500 mg PO BIDCM 09/20/18 Celluvisc 1 drop OP 4X/DAY 09/20/18 Gabapentin [Neurontin] 800 mg PO TIDCM 09/20/18 Surgical History: - - status post I AND D of R foot 5th metatarsal abscess, 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 Bilateral carpal tunnel surgery 1994, right shoulder surgery in 1994, section x2. Psychiatric History: Anxiety, Depression BEHAVIORAL THERAPIST History: No pertinent BEHAVIORAL THERAPIST history Lives: Alone Smoking Status: Never smoker Alcohol: None Drugs: None - *Family History Maternal History Items: Cancer - Patient had a brother who had testicular cancer; and later cancer in his stomach., Diabetes, Hypertension, - - Her mother at the age of 67 to a blood clot to the brain. She had had multiple strokes preceding that. Patient had 3 brothers who had bypass surgery in their 50s. Paternal History Items: - - Patient states her father when she was 5 years old, denies known medical history, denies known cardiac history. Sibling History Items: - - She has one brother who is secondary to cancer and she does not know what kind of cancer he had. She also has 3 brothers with a history of cardiovascular disease, stents and coronary artery bypass grafting. Review of Systems Constitutional: Denies: Anorexia, Chills, Fever, Weakness Eyes: Denies: Blurred vision, Double vision, Drainage, Redness HEENT: Denies: Difficulty Hearing, Ear Pain, Eye Pain, Nasal Congestion, Sore Throat Cardiovascular: Reports: Chest Pain. Denies: Chest Pressure, Chest Tightness, Edema, Heaviness, Light Headedness, Orthopnea, Paroxysmal Noc. Dyspnea, Syncope Respiratory: Denies: Cough, Pleuritic Pain, Shortness of Breath, Sputum production, Wheezing Gastrointestinal: Denies: Abdominal Pain, Constipation, Diarrhea, Nausea, Vomiting Genitourinary: Denies: Dysuria, Frequency, Hematuria Musculoskeletal: Denies: Arm Pain, Back Pain, Foot Pain Skin: Denies: Dryness, Rash Neurological: Denies: Balance problems, Double vision, Change in Speech, Slurred speech, Headaches, Incoordination, Numbness Psychiatric: Reports: Anxiety. Denies: Depression Endocrine: Denies: Change in Body Habitus, Polydipsia VTE Information - Inpt Only VTE Present on Admission: No VTE Mechan Device Prophylaxis: None VTE Pharm Prophylaxis ordered?: No Patient Problems: Active and Suspected Problems (Last Updated 09/23/18 @ 13:26 by Deepa Irizarry MD) NSTEMI (non-ST elevated myocardial infarction) (Acute) - Physical Exam General: Alert, Oriented x3, Cooperative, No apparent distress HEENT: Atraumatic, PERRLA, EOMI, Normocephalic Oral: Moist Mucosa, No Gingival or Mucosal Lesions/ Ulcerations Neck: Supple, No JVD, Negative Carotid Bruits, Trachea Midline, Thyroid Normal Size and Texture Lungs: Clear to auscultation, Normal air movement, No rhonchi, No wheeze, No rales Cardiovascular: Regular rate, Regular Rhythm, Normal S1, Normal S2, No murmurs, PMI Normal Abdomen: Bowel Sounds Present, Soft, Non Tender, Non-Distended, No Hepato-splenomegaly Extremities: No clubbing, No cyanosis, No edema Skin: No rashes, Ulcer/ Wound Lymphatic: No Cervical, Supraclavicular, or Inguinal Adenopathy Neurological: Cranial nerves II-XII grossly intact, Motor Exam 5/5 strength throughout Psych/Mental Status: Normal Affect, Appropriate, Alert and oriented to time, place, person, mood and affect Vital Signs Temp Pulse Resp BP Pulse Ox 98.6 F 93 16 141/87 H 97 09/23/18 11:33 09/23/18 12:55 09/23/18 12:55 09/23/18 12:55 09/23/18 12:55 Oxygen Delivery Method Room Air Weight: 180 lb Body Mass Index (BMI) 29.0 Finger Stick Blood Glucose 227 Laboratory Tests Past 24 Hrs WBC 7.7 RBC 4.08 L Hgb 11.5 L Hct 34.9 L MCV 85.5 MCH 28.2 MCHC 33.0 RDW 13.4 RDW Differential 41.6 Clinical Impression(s) from Imaging Studies Chest X-Ray 09/23/18 11:55 Assessment/Plan All Active Problems (Last Updated 09/23/18 @ 13:26 by Deepa Irizarry MD) NSTEMI (non-ST elevated myocardial infarction) (Acute) This is a 52 years old female patient presented to the emergency room because of chest pain, she was discharged from the hospital yesterday after admission for acute non-ST elevation PR status post PCI/DARA to mid and proximal LAD and she is being admitted for evaluation. #1 chest pain: Patient was discharged from the hospital yesterday after she had PTCI/DARA to mid and proximal LAD. EKG from today reviewed, showed no acute ST elevation. Troponin is 2.5, trending down compared to the one from before yesterday. Chest x-ray showed no acute findings. Patient stated that she did not take her Plavix today. Vital signs are stable. Plan: Admit to PCU for observation, cardiac monitoring, serial cardiac enzymes, repeat EKG tomorrow morning, sublingual nitroglycerin as needed for pain, continue aspirin, Plavix, statins, cardiology consult. #2 CAD status post stents: Status post PCI/DARA to mid and proximal LAD that was done 2 days ago. Plan as above, continue aspirin, Plavix and statins, cardiology consult. 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 Plan for ADA diet, Accu-Cheks, insulin sliding scale, continue home doses of Lantus and pre-meal NovoLog. #4 hyperlipidemia: Continue statins. #5 depression/anxiety/restless leg syndrome: She is only on Requip for restless legs. She is not suicidal homicidal. #6 chronic back pain/neuropathic pain: Continue gabapentin and Tylenol as needed. #7 DVT prophylaxis: Low-risk patient, no prophylaxis indicated, ambulate. This note was generated with [employer] software. It may contain incorrect words, spelling, and punctuation that were not noted in checking the note before signing. Code Visit OBSV E AND M: [id number] Initial observation care L3 09/23/18 0285 <Electronically signed by Deepa Irizarry MD> Date Deepa Irizarry MD Cosigner Signature: Date (if applicable) CC: Deepa Irizarry; Alessandro Eric MD Signed EMERGENCY DEPARTMENT Observed: 09/23/2018 Status: F Source: [place] SUMMARY 12:[address] [facility] REPOSITORY [facility] Medical Records Department [address] [place] [address] Emergency Department Summary 09/23/18 1249 MR#: [id number] Acct: [id number] Name: DIONY CARRILLO Rep #: [id number] : 1965 53 From: Anjum Asencio DO PCP: Alessandro Eric MD Status: PRE ER - ER Visit Summary Date of Service: 09/23/18 Chief Complaint: [Chest pain] History of Present Illness: The patient is a 53 F [presents to the emergency department complaint of chest discomfort that started around 8 PM last night. Patient states the pain is been somewhat intermittent and has been lasting up to an hour at a time. She describes it as dull and a pressure-like sensation in her left chest. No real radiation of the pain. She denies any shortness of breath or diaphoresis. Patient tells me that 2 days ago she was admitted to the hospital and underwent a heart catheterization and had 2 stents placed for a non-ST elevation PR. Patient denies recent travel or surgery.] EMS gave patient aspirin and nitro which seemed to help her pain. She currently rates her pain a 4 out of 10. Physical Examination: [HEENT-PERRLA, EOMI. Cranial nerves II through XII grossly intact. TMs clear. Mucous membranes moist. No adenopathy. Cardiovascular-regular rate and rhythm without murmur or ectopy Lungs-clear to auscultation, chest wall stable without crepitus or subcu emphysema Abdomen-normoactive bowel sounds, soft, nontender, no rebound or rigidity, no peritoneal signs. Extremities-intact 4, normal range of motion, normal pulses, atraumatic] Test Results: [EKG obtained on arrival shows sinus rhythm with a ventricular rate of 90 bpm with old septal infarct noted and some nonspecific ST changes. When compared with prior EKG no new changes noted. CBC with differential showed a white count 7.7, hemoglobin 11.5, hematocrit 35, platelets 319. History is unremarkable. Troponin was 2.57 and 2 days ago it was over 7.] Emergency Department Course and Treatment: [Patient received 1 sublingual nitro which did improve her pain and she had an inch of Nitropaste placed to the anterior chest wall.] Treatment Plan: [This point the etiology of her chest pains unclear her troponin is down from 2 days ago but it is unclear if its on its way back up. I will discuss case with hospitalist evaluate for admission] Disposition: [Admit] Impression: [Chest pain-rule out acute coronary syndrome] This note was generated with [employer] dictation software. It may contain incorrect words, spelling, and punctuation that were not noted in review of the chart prior to signing ED Disposition - Plan for ED Patient: Chief Complaint: Chest Pain Referrals: Alessandro Eric MD [Primary Care Provider] - What to do if you have Problems For any increased pain, shortness of breath, bleeding, nausea or vomiting, chest pain, or any unexpected problems, contact your Primary Care Provider. Call [facility] ([phone]) or report to the closest Emergency Room. Call 911 if necessary. 09/23/18 1252 <Electronically signed by Anjum Asencio DO> Date Anjum Asencio DO Cosigner Signature (If Indicated): Date CC: Alessandro Eric MD CHEST 1 VIEW Observed: 09/23/2018 Status: F Source: [place] (PORTABLE) 11:[address] [facility] REPOSITORY [facility] Imaging Services [address] [place] [address] Chest 1 View (Portable) MR#: [id number] Acct: [id number] Name: DIONY CARRILLO Rep #: [id number] : 1965 F 53 From: Nathan Mcghee MD PCP: Alessandro Eric MD Status: PRE ER Study: Chest 1 View (Portable) Date of Exam: 09/23/18 Exam# [id number] Ordering Dr: Anjum Asencio DO STUDY: X-RAY CHEST REASON FOR EXAM: Female, 53 years old. Chest pain TECHNIQUE: Single view of the chest was obtained COMPARISON: September 20, 2018 chest radiograph FINDINGS: Chronic size is within normal limits. Minimal platelike atelectasis in the lung bases. No definite lung consolidation. No pleural effusion. Mild perihilar streaky opacities. No pneumothorax. IMPRESSION: Mild perihilar congestive changes. No evidence for focal airspace disease. Stable lung findings Electronically Signed: Nathan Mcghee, at 12:36 EST Tel , Service support , RAD/Chest 1 View (Portable) CC: Alessandro Eric MD; Anjum Asencio DO Mobile Lounge Driver Or Operator: Signed CBC W/DIFF, AUTOMATED Collected: 09/23/2018 Status: F Source: [place] 11:[address] [facility] REPOSITORY TYPE CODE TESTS RESULT OUT OF RANGE REFERENCE UNITS LAB L100.1000 4.4-11.0 K/mm3 Normal WBC 7.7 LAB L100.1200 4.2-5.4 M/mm3 Low RBC 4.08 LAB L100.1300 12.0-15.0 g/dl Low HGB 11.5 LAB L100.1400 37-47 % Low HCT 34.9 LAB L100.1500 81-99 fL Normal MCV 85.5 LAB L100.1600 27.0-32.0 pg Normal MCH 28.2 LAB L100.1700 32-36 g/gl Normal MCHC 33.0 LAB L100.1810 11.6-14.6 % Normal RDW CV 13.4 LAB L100.1820 35.1-43.9 fl Normal RDW SD 41.6 LAB L100.1900 150-450 K/mm3 Normal PLT 319 LAB L100.2000 6.2-12.0 fl Normal MPV 10.8 LAB L100.2100 47-70 % High NEUT% 74.8 LAB L100.2200 19-41 % Low LY% 16.3 LAB L100.2300 0-10 % Normal MONO% 5.2 LAB L100.2400 0-5 % Normal EO% 3.2 LAB L100.2500 0-1 % Normal BASO% 0.4 LAB L100.2550 0.0-0.9 % Normal IM GRAN % 0.100 Result Comment: IG% - Immature Granulocytes (promyelocytes, myelocytes and metamyelocytes) > 1% indicates that a LEFT SHIFT is Present. LAB L100.2620 2.0-7.7 X10 3/uL Normal Absolute Neut 5.8 LAB L100.2720 0.83-4.51 X10 3/ul Normal Absolute Lymph 1.26 Performed By: #### L100.0100 #### [facility] [address] [place], [place], [address] BASIC METABOLIC Collected: 09/23/2018 Status: F Source: [place] PROFILE ([facility]) 11:[address] [facility] REPOSITORY TYPE CODE TESTS RESULT OUT OF RANGE REFERENCE UNITS LAB L501.0100 74-106 mg/dL High GLU 255 Result Comment: Glucose result greater than or equal to 200 mg/dL suggests DIABETES MELLITUS per A.D.A. criteria. Please note revised GLUCOSE reference range effective 2017. LAB L501.1000 7-18 mg/dL Normal BUN 8 LAB L501.1100 0.55-1.02 mg/dL Normal CREAT,SERUM 0.86 Result Comment: The validity of the calculated GFR AND GFRAA in patients over 70 years has not been determined. Clinical correlation is essential. LAB L501.1110 >60 mL/min Normal EST GFR 74 Result Comment: Non- GFR Calc LAB L501.1115 >60 mL/min Normal EST GFR - AA 89 Result Comment: GFR Calc LAB L501.1255 ml/min Normal Estimated CRCL 70.82 LAB L501.1300 10-20 RATIO Low BUN/CRE 9.3 LAB L501.2200 8.5-10 mg/dL Normal .1 CA 9.2 LAB L501.5300 136-14 mmol/L Normal 5 NA 139 LAB L501.5600 3.5-5. mmol/L Normal 1 K 3.8 LAB L501.5900 98-107 mmol/L Normal CL 104 LAB L501.6100 21.0-3 mmol/L Normal 2.0 CO2 27.0 LAB L501.6200 5-15 Normal GAP 8 Performed By: #### L500.2500, L501.4010 #### [facility] [address] [place], [address] TROPONIN-I Collected: 09/23/2018 Status: F Source: [place] 11:[address] [facility] REPOSITORY TYPE CODE TESTS RESULT OUT OF RANGE REFERENCE UNITS LAB L501.4010 <0.045 ng/mL High alert 2.570 TROPONIN-I Result Comment: Critical Result(s) Called at: 12:21:39 09/23/2018 by: Bill Roman RN (ER). TROPONIN-I EXPECTED VALUES <0.045 Negative 0.045 - 0.590 Consistent with Cardiac Damage > OR = 0.600 Critical Value Not every elevated troponin is indicative of PR. These values should be used with clinical judgement in examining the patient's clinical picture for diagnosis. To establish a diagnosis of PR versus myocardial injury, there must be a demonstrated rise and/or fall in the troponin values, in addition to ischemic symptoms, EKG changes, new regional wall motion abnormality, and/or angiographical evidence. PLEASE NOTE: REFERENCE RANGES EDITED 18 Performed By: #### L500.2500, L501.4010 #### [facility] [address] [place], [address] 12 LEAD ELECTROCARDIOGRAM Observed: 09/22/2018 Status: F Source: [place] 11:[address] [facility] REPOSITORY [facility] Cardiovascular Services [address] [place] [address] [place] [address] 12 Lead EKG 09/21/18 0051 MR#: [id number] Acct: [id number] Name: DIONY CARRILLO Rep #: [id number] : 1965 53 From: Saravanan Jean Baptiste MD Attending Dr: Kali Prado DO Status: DIS IN Ordering Dr: Gopi Bach MD Date: 09/21/18 Location: ICU Sex: F C Admitted: 09/21/18 Test Reason : ADMITIING CP EKG Blood Pressure : / mmHG Vent. Rate : 092 BPM Atrial Rate : 092 BPM P-R Int : 158 ms QRS Dur : 088 ms QT Int : 330 ms P-R-T Axes : 043 016 093 degrees QTc Int : 408 ms Normal sinus rhythm Septal infarct , age undetermined Abnormal ECG When compared with ECG of 20-SEP-2018 21:17, MANUAL COMPARISON REQUIRED, DATA IS UNCONFIRMED Confirmed by MARKEL DELVALLE, SARAVANAN ([id number]), food editor MARLON GALEANA ([id number]) on 09/22/2018 10:59:58 AM Referred By: MEGGAN Confirmed By:SARAVANAN JEAN BAPTISTE MD 09/22/18 1059 Date Saravanan Jean Baptiste MD CC: Kali Prado DO; Gopi Bach MD; Alessandro Eric MD Signed ECHOCARDIOGRAM COMPLETE Observed: 09/22/2018 Status: F Source: [place] 10:[address] [facility] REPOSITORY [facility] Cardiovascular Services [address] [place] [address] Echo Complete 09/22/18 0739 MR#: [id number] Acct: [id number] Name: DIONY CARRILLO Rep #: [id number] : 1965 53 From: Saravanan Jean Baptiste MD Attending Dr: Kali Prado DO Status: DIS IN Ordering Dr: Saravanan Jean Baptiste MD Date: 09/21/18 Location: ICU Sex: F C Admitted: 09/21/18 Reason For Study: S/P PR Procedure This was a 2D Doppler, Color Flow transthoracic echocardiogram. Exam performed portable in ICU/CCU. Left Ventricle Normal LV size. The estimated ejection fraction is 50 %. Stage 1 diastolic dysfunction. Mild segmental systolic dysfunction (see wall motion). [place] : Hypokinetic. Right Ventricle Normal RV size. Normal systolic function. Atria Normal left atrium. Normal right atrium. Mitral Valve Normal mitral valve. Mild (1+) eccentric mitral valve insufficiency. Tricuspid Valve Normal tricuspid valve. Mild tricuspid valve insufficiency. Pulmonary artery systolic pressure is 26 mmHg. Aortic Valve Normal aortic valve. Pulmonic Valve Normal pulmonic valve. Great Vessels Normal aortic root. The pulmonary artery is normal size. Normal inferior vena cava. Pericardium/Pleural No pericardial effusion. MMode/2D Measurements AND Calculations LVIDd: 4.5 cm IVSd: 0.97 cm Ao root diam: 2.9 cm LVIDs: 3.0 cm LVPWd: 1.0 cm RVDd: 2.7 cm FS: 33.1 % LAV(MOD-bp): 52.0 ml EDV(MOD-sp4): 106.1 ml EDV(MOD-sp2): 85.1 ml LAV(MOD-bp) Indexed: 27.1 ml/m2 ESV(MOD-sp4): 51.9 ml EF(MOD-sp2): 55.2 % LAV(MOD-sp2): 41.6 ml EF(MOD-sp4): 51.1 % LAV(MOD-sp4): 55.5 ml SV(MOD-sp4): 54.2 ml SV(MOD-sp2): 46.9 ml LA A4 area: 19.6 cm2 LA dimension(2D): 3.9 cm RA A4 area: 12.9 cm2 Time Measurements MV dec time: 0.16 sec Doppler Measurements AND Calculations MV E max lex: 86.1 cm/sec Lat Peak E' Lex: 7.7 cm/sec Med Peak E' Lex: 5.9 cm/sec MV A max lex: 103.1 cm/sec E/E' lat: 11.2 E/E' med: 14.5 MV E/A: 0.84 Ao V2 max: 121.2 cm/sec LV V1 max: 81.4 cm/sec PA V2 max: 99.3 cm/sec Ao max P.9 mmHg LV V1 max P.7 mmHg TR max lex: 238.6 cm/sec TR max P.9 mmHg Interpretation Summary Normal LV size. The estimated ejection fraction is 50 %. Stage 1 diastolic dysfunction. Mild tricuspid valve insufficiency. [place] : Hypokinetic. Mild segmental systolic dysfunction (see wall motion). Ordering Physician: Saravanan Jean Baptiste Referring Physician: MD Alessandro Eric Performed By: Judit Cr, RDCS, RVT 09/22/18 1025 Date Saravanan Jean Baptiste MD CC: Saravanan Jean Baptiste MD; Kali Prado DO; Alessandro Eric MD Date Dictated: 09/22/18 0739 Date Transcribed: 09/22/18 1025 Mobile Lounge Driver Or Operator: Signed 12 LEAD ELECTROCARDIOGRAM Observed: 09/22/2018 Status: F Source: [place] 9:[address] [facility] REPOSITORY [facility] Cardiovascular Services [address] [place] [address] 12 Lead EKG 09/20/182116 MR#: [id number] Acct: [id number] Name: DIONY CARRILLO Rep #: [id number] : 1965 53 From: Saravanan Jean Baptiste MD Attending Dr: Kali Prado DO Status: ADM IN Ordering Dr: Lexie Savage MD Date: 09/20/18 Location: ICU Sex: F C Admitted: 09/21/18 Test Reason : CP Blood Pressure : / mmHG Vent. Rate : 105 BPM Atrial Rate : 105 BPM P-R Int : 152 ms QRS Dur : 086 ms QT Int : 344 ms P-R-T Axes : 066 -01 083 degrees QTc Int : 454 ms Sinus tachycardia Septal infarct , age undetermined Abnormal ECG Confirmed by SARAVANAN JEAN BAPTISTE MD ([id number]), food editor MARLON GALEANA ([id number]) on 09/22/2018 9:50:19 AM Referred By: DR SAVAGE Confirmed By:SARAVANAN JEAN BAPTISTE MD 09/22/18 0950 Date Saravanan Jean Baptiste MD CC: Kali Prado DO; Lexie Savage MD; Alessandro Eric MD Signed DISCHARGE SUMMARY Observed: 09/22/2018 Status: F Source: [place] 7:[address] [facility] REPOSITORY [facility] Medical Records Department [address] [place] [address] Discharge Summary 09/22/18 0751 MR#: [id number] Acct: [id number] Name: DIONY CARRILLO Rep #: [id number] : 1965 53 From: Kali Prado DO PCP: Alessandro Eric MD Status: ADM IN Y Location: ICU [id number] Discharge Date and Diagnosis - Problem List Patient Problems: Active and Suspected Problems (Last Updated 09/21/18 @ 09:42 by Karin Mcdermott) NSTEMI (non-ST elevated myocardial infarction) (Acute) History of coronary artery stent placement (Acute 09/21/18) PCI-DARA mid LAD with a 2.25 x 16 mm Promus Synergy Stent, DARA proximal LAD with a 2.5 x 12mm Promus Synergy Stent 09/21/18 Atherosclerosis of coronary artery of [place] heart without angina pectoris (Acute) PCI-DARA mid LAD with a 2.25 x 16 mm Promus Synergy Stent, DARA proximal LAD with a 2.5 x 12mm Promus Synergy Stent 09/21/18 NSTEMI (non-ST elevated myocardial infarction) (Acute) Date of Admission: 09/20/18 Date of Discharge: 09/22/18 - Primary Discharge Diagnosis Active and Suspected Problems (Last Updated 09/21/18 @ 09:42 by Karin Mcdermott) NSTEMI (non-ST elevated myocardial infarction) (Acute) History of coronary artery stent placement (Acute 09/21/18) PCI-DARA mid LAD with a 2.25 x 16 mm Promus Synergy Stent, DARA proximal LAD with a 2.5 x 12mm Promus Synergy Stent 09/21/18 Atherosclerosis of coronary artery of [place] heart without angina pectoris (Acute) PCI-DARA mid LAD with a 2.25 x 16 mm Promus Synergy Stent, DARA proximal LAD with a 2.5 x 12mm Promus Synergy Stent 09/21/18 NSTEMI (non-ST elevated myocardial infarction) (Acute) - Secondary Discharge Diagnosis Chronic Problems (Last Updated 09/21/18 @ 09:42 by Karin Mcdermott) HLD (hyperlipidemia) (Chronic) Cellulitis (Chronic) Neuropathic pain (Chronic) GERD (gastroesophageal reflux disease) (Chronic) Hypomagnesemia (Chronic) Back pain, chronic (Chronic) Hyponatremia (Chronic) Depression (Chronic) Diabetic foot ulcer associated with type 2 diabetes mellitus (Chronic) RLS (restless legs syndrome) (Chronic) Type II diabetes mellitus, uncontrolled (Chronic) Anxiety state (Chronic) Hospital Course and Treatment Consultations 09/21/18 01:35 Consult: Onc/Wound/cook chili Routine Comment: Reason for Consult:: wound to outer left foot Operations: None, - Procedures: Cardiac catheterization Summary of Care Provided: The patient is a 53 year old F with chest pain. Initial troponins were 0.253 and then peaked as high as 7.73. Patient underwent a left heart catheterization and received a drug-eluting stent to the left anterior descending artery. Patient will continue with aspirin, Plavix and high intensity statin. Patient will follow up with cardiology as well as cardiac rehab. Patient was also noted to have severe hypoglycemia with blood sugars over 500. Patient was resumed back on her home dose of insulin and her blood sugars have improved. Patient has been instructed to for compliance of her medications. Patient Problems: Active and Suspected Problems (Last Updated 09/21/18 @ 09:42 by Karin Mcdermott) NSTEMI (non-ST elevated myocardial infarction) (Acute) History of coronary artery stent placement (Acute 09/21/18) PCI-DARA mid LAD with a 2.25 x 16 mm Promus Synergy Stent, DARA proximal LAD with a 2.5 x 12mm Promus Synergy Stent 09/21/18 Atherosclerosis of coronary artery of [place] heart without angina pectoris (Acute) PCI-DARA mid LAD with a 2.25 x 16 mm Promus Synergy Stent, DARA proximal LAD with a 2.5 x 12mm Promus Synergy Stent 09/21/18 NSTEMI (non-ST elevated myocardial infarction) (Acute) - Physical Exam General: - - Groggy but wakes to voice. Follows commands. HEENT: Atraumatic, Normocephalic Oral: Moist Mucosa, No Gingival or Mucosal Lesions/ Ulcerations Neck: No Nodes, Thyroid Normal Size and Texture Lungs: Clear to auscultation, Normal air movement, No rhonchi, No wheeze Cardiovascular: Regular rate, Regular Rhythm, Normal S1, Normal S2, No murmurs Abdomen: Bowel Sounds Present, Soft, Non Tender, Non-Distended, No Hepato-splenomegaly Psych/Mental Status: Flat Affect Vital Signs Temp Pulse Resp BP Pulse Ox 36.6 C 79 19 H 112/57 L 96 09/22/18 00:00 09/22/18 06:00 09/22/18 06:00 09/22/18 06:00 09/22/18 06:00 Oxygen Flow Rate (L/min) 2 Oxygen Delivery Method Room Air Weight: 82.554 kg Body Mass Index (BMI) 29.3 Finger Stick Blood Glucose 227 Intake and Output for Last 24 Hours Intake Total 5560 / 5560 120 / 120 Output Total 2500 / 2500 325 / 325 Balance 3060 / 3060 -205 / -205 Laboratory Tests Past 24 Hrs WBC 8.8 8.9 RBC 3.32 L 3.53 L Hgb 9.4 L 10.0 L Hct 29.2 L 30.9 L MCV 88.0 87.5 MCH 28.3 28.3 POC Glucose POC Glucose 189 H 195 H 189 H POC Glucose 237 H 101 157 H POC Glucose 220 H Discharge Diet: Low fat/ Low Cholesterol, 1800 Calorie Control Diet Discharge Activity: Return to Normal Activity Call your doctor if you observe: Shortness of breath, Chest pain Home Medications: Medications to take at Discharge Acetaminophen [Tylenol Tablet] 650 mg PO Q6H PRN PRN 09/20/18 Ascorbic Acid [Vitamin C] 500 mg PO BIDCM 09/20/18 Celluvisc 1 drop OP 4X/DAY 09/20/18 Gabapentin [Neurontin] 800 mg PO TIDCM 09/20/18 Insulin Aspart [Novolog Flexpen] 20 units SC TIDCM 09/20/18 Insulin Glargine [Lantus SoloStar Pen] 30 units SC 0800 09/20/18 Omeprazole [Prilosec] 20 mg PO DAILY 09/20/18 Oxycodone [Oxyir] 5 mg PO Q8H PRN PRN 09/20/18 Ropinirole HCl [Requip] 3 mg PO BID 09/20/18 Rosuvastatin Calcium [Crestor] 40 mg PO DAILY 09/20/18 proMETHazine tablet [Phenergan tablet] 25 mg PO Q6H PRN 09/20/18 Aspirin E.C. [Ecotrin] 81 mg PO DAILY@0800 tablet 09/22/18 Atorvastatin Calcium [Lipitor] 80 mg PO QHS #30 tablet 09/22/18 Clopidogrel Bisulfate [Plavix] 75 mg PO DAILY #30 tablet 09/22/18 Lisinopril [Zestril] 5 mg PO DAILY #30 tablet 09/22/18 Metoprolol Tartrate [Lopressor (beta kunal)] 12.5 mg PO BID #60 tablet 09/22/18 Following Prescrptions Were Given to Patient: Atorvastatin Calcium [Lipitor] 80 mg PO QHS #30 tablet Clopidogrel Bisulfate [Plavix] 75 mg PO DAILY #30 tablet Lisinopril [Zestril] 5 mg PO DAILY #30 tablet Metoprolol Tartrate [Lopressor (beta kunal)] 12.5 mg PO BID #60 tablet Other Amb Orders: Phase II, Outpatient Cardiac Rehab Location: None Selected Primary Care Physician: Alessandro Eric MD [Primary Care Provider] - Within 2 Weeks Please Follow Up With: Saravanan Jean Baptiste MD When: 2-4 weeks Disposition: Home Minutes spent on discharge:: 28 Patient Condition:: Good Medical Necessity - Tobacco Use Smoking Status: Never smoker Meaningful Use Info Meaningful Use Diagnoses (Choose all that apply): AMI - AMI Aspirin given w/in 24hrs of arrival?: Yes ASA at discharge?: Yes Statins at discharge?: Yes Myla/ARB at discharge?: Yes Beta Knual at discharge?: Yes Done w/ Acute PR measure.: Yes Code Visit Inpatient E AND M: [id number] Disch Hosp 09/22/18 0755 <Electronically signed by Kali Prado DO> Date Kali Prado DO Cosigner Signature (if applicable): Date CC: Saravanan Jean Baptiste MD; Kali Prado DO; Alessandro Eric MD Signed DISCHARGE INSTRUCTION Observed: 09/22/2018 Status: F Source: [place] 7:[address] [facility] REPOSITORY [facility] Medical Records Department [address] [place] [address] Instructions for Home/Discharge Instructions 09/22/18 0750 MR#: [id number] Acct: [id number] Name: DIONY CARRILLO Rep #: [id number] : 1965 53 From: Kali Prado DO PCP: Alessandro Eric MD Status: ADM IN - Discharge Diagnoses Current Active Problems: Current Active and Chronic Problems (Last Updated 09/21/18 @ 09:42 by Karin Mcdermott) History of coronary artery stent placement (Acute 09/21/18) PCI-DARA mid LAD with a 2.25 x 16 mm Promus Synergy Stent, DARA proximal LAD with a 2.5 x 12mm Promus Synergy Stent 09/21/18 Atherosclerosis of coronary artery of [place] heart without angina pectoris (Acute) PCI-DARA mid LAD with a 2.25 x 16 mm Promus Synergy Stent, DARA proximal LAD with a 2.5 x 12mm [employer] Synergy Stent 09/21/18 NSTEMI (non-ST elevated myocardial infarction) (Acute) You will use the following diet at home:: Calorie/Carbohydrate Controlled (specify 1200, 1400, etc) - 1800 calories/day, Cardiac Your food should be the consistency of: Regular Your liquids should be the consistency of: Regular/Thin Discharge Activity: Return to Normal Activity Call your doctor if you observe: Shortness of breath, Chest pain Allergies/Adverse Reactions: Allergies oxycodone HCl [From OxyContin] Allergy (Verified 09/20/18 20:55) Rash Penicillins Allergy (Verified 09/20/18 20:55) Shortness of breath Medications to take at Discharge Acetaminophen [Tylenol Tablet] 650 mg PO Q6H PRN PRN 09/20/18 Ascorbic Acid [Vitamin C] 500 mg PO BIDCM 09/20/18 Celluvisc 1 drop OP 4X/DAY 09/20/18 Gabapentin [Neurontin] 800 mg PO TIDCM 09/20/18 Insulin Aspart [Novolog Flexpen] 20 units SC TIDCM 09/20/18 Insulin Glargine [Lantus SoloStar Pen] 30 units SC 0800 09/20/18 Omeprazole [Prilosec] 20 mg PO DAILY 09/20/18 Oxycodone [Oxyir] 5 mg PO Q8H PRN PRN 09/20/18 Ropinirole HCl [Requip] 3 mg PO BID 09/20/18 Rosuvastatin Calcium [Crestor] 40 mg PO DAILY 09/20/18 proMETHazine tablet [Phenergan tablet] 25 mg PO Q6H PRN 09/20/18 Aspirin E.C. [Ecotrin] 81 mg PO DAILY@0800 tablet 09/22/18 Atorvastatin Calcium [Lipitor] 80 mg PO QHS #30 tablet 09/22/18 Clopidogrel Bisulfate [Plavix] 75 mg PO DAILY #30 tablet 09/22/18 Lisinopril [Zestril] 5 mg PO DAILY #30 tablet 09/22/18 Metoprolol Tartrate [Lopressor (beta kunal)] 12.5 mg PO BID #60 tablet 09/22/18 The following prescriptions were given: Atorvastatin Calcium [Lipitor] 80 mg PO QHS #30 tablet Clopidogrel Bisulfate [Plavix] 75 mg PO DAILY #30 tablet Lisinopril [Zestril] 5 mg PO DAILY #30 tablet Metoprolol Tartrate [Lopressor (beta kunal)] 12.5 mg PO BID #60 tablet Orders to be completed after discharge: Phase II, Outpatient Cardiac Rehab Location: None Selected Primary Care Physician: Alessandro Eric MD [Primary Care Provider] - Within 2 Weeks Test Results: Test results from this visit will be discussed in further detail at your follow-up appointment, if applicable. Please Follow Up With: Saravanan Jean Baptiste MD When: 2-4 weeks Proposed Discharge Date: 09/22/18 Cardiac Rehab Referral Please Follow Up with Cardiac Rehabilitation:: 2 Weeks Cardiac Rehabilitation was informed of this Referral:: No 09/22/18 0751 <Electronically signed by Kali Prado DO> Date Kali Prado DO CC: Saravanan Jean Baptiste MD; Alessandro Eric MD BEDSIDE GLUCOSE Collected: 09/22/2018 Status: F Source: [place] 5:[address] [facility] REPOSITORY TYPE CODE TESTS RESULT OUT OF REFERENCE UNITS RANGE LAB L501.080 70-110 mg/dL High BEDSIDE GLU 189 Result Comment: Dr Ponce Followed Insulin Given MANAGEMENT OF PATIENT CARE PER NURSING PROTOCOL Performed By: #### L501.080 #### [facility] Point of Care [address] [place], [place] [address] CBC-COMPLETE BLOOD CNT Collected: 09/22/2018 Status: F Source: [place] NO DIFF 4:[address] [facility] REPOSITORY TYPE CODE TESTS RESULT OUT OF RANGE REFERENCE UNITS LAB L100.1000 4.4-11.0 K/mm3 Normal WBC 6.9 LAB L100.1200 4.2-5.4 M/mm3 Low RBC 3.39 LAB L100.1300 12.0-15.0 g/dl Low HGB 9.6 LAB L100.1400 37-47 % Low HCT 29.9 LAB L100.1500 81-99 fL Normal MCV 88.2 LAB L100.1600 27.0-32.0 pg Normal MCH 28.3 LAB L100.1700 32-36 g/gl Normal MCHC 32.1 LAB L100.1810 11.6-14.6 % Normal RDW CV 13.4 LAB L100.1820 35.1-43.9 fl Normal RDW SD 41.0 LAB L100.1900 150-450 K/mm3 Normal PLT 264 LAB L100.2000 6.2-12.0 fl Normal MPV 11.1 Performed By: #### L100.0500 #### [facility] [address] [place], [place], [address] BASIC METABOLIC Collected: 09/22/2018 Status: F Source: [place] PROFILE (BMP) 4:[address] [facility] REPOSITORY TYPE CODE TESTS RESULT OUT OF RANGE REFERENCE UNITS LAB L501.0100 74-106 mg/dL High GLU 191 Result Comment: Fasting Glucose result greater than or equal to 126 mg/dL suggests DIABETES MELLITUS per A.D.A. criteria. Please note revised GLUCOSE reference range effective 2017. LAB L501.1000 7-18 mg/dL Normal BUN 10 LAB L501.1100 0.55-1.02 mg/dL Normal CREAT,SERUM 0.78 Result Comment: The validity of the calculated GFR AND GFRAA in patients over 70 years has not been determined. Clinical correlation is essential. LAB L501.1110 >60 mL/min Normal EST GFR 83 Result Comment: Non- GFR Calc LAB L501.1115 >60 mL/min Normal EST GFR - AA 100 Result Comment: GFR Calc LAB L501.1255 ml/min Normal Estimated CRCL 78.08 LAB L501.1300 10-20 RATIO Normal BUN/CRE 12.9 LAB L501.2200 8.5-10 mg/dL Low .1 CA 8.0 LAB L501.5300 136-14 mmol/L Normal 5 NA 142 LAB L501.5600 3.5-5. mmol/L Normal 1 K 4.0 LAB L501.5900 98-107 mmol/L High CL 112 LAB L501.6100 21.0-3 mmol/L Normal 2.0 CO2 22.0 LAB L501.6200 5-15 Normal GAP 8 Performed By: #### L500.2500, L500.4100 #### [facility] [address] [place], [place], [id number] LIPID PROFILE Collected: 09/22/2018 Status: F Source: [place] 4:[address] [facility] REPOSITORY TYPE CODE TESTS RESULT OUT OF RANGE REFERENCE UNITS LAB L501.4900 200 mg/dL Normal CHOL 193 Result Comment: <200 mg/dL Desirable 200-240 mg/dL Borderline >240 mg/dL High Risk LAB L501.5000 mg/dL High TRIG 219 Result Comment: The drugs N-Acetylcysteine and Metamizole may falsely depress this assay. Serum Triglycerides Reference Interval Normal <150 mg/dL Borderline high 150 - 199 mg/dL High 200 - 499 mg/dL Very High > or = 500 mg/dL LAB L501.6400 mg/dL Low HDL 36 Result Comment: The drugs N-Acetylcysteine and Metamizole may falsely depress this assay. Reference Range HDL <40 mg/dL Low HDL Cholesterol HDL >or= 60 mg/dL High HDL Cholesterol LAB L501.6500 0-130 mg/dL Normal LDL 113 LAB L501.6600 5-40 mg/dL High VLDL 44 Performed By: #### L500.2500, L500.4100 #### [facility] [address] [place], [address] BEDSIDE GLUCOSE Collected: 09/22/2018 Status: F Source: [place] 2:[address] [facility] REPOSITORY TYPE CODE TESTS RESULT OUT OF REFERENCE UNITS RANGE LAB L501.080 70-110 mg/dL High BEDSIDE GLU 195 Result Comment: MANAGEMENT OF PATIENT CARE PER NURSING PROTOCOL Performed By: #### L501.080 #### [facility] Point of Care [address] [place] [address] BEDSIDE GLUCOSE Collected: 09/21/2018 Status: F Source: [place] 10:[address] [facility] REPOSITORY TYPE CODE TESTS RESULT OUT OF REFERENCE UNITS RANGE LAB L501.080 70-110 mg/dL High BEDSIDE GLU 189 Result Comment: MANAGEMENT OF PATIENT CARE PER NURSING PROTOCOL Performed By: #### L501.080 #### [facility] Point of Care [address] [place] [address] BEDSIDE GLUCOSE Collected: 09/21/2018 Status: F Source: [place] 7:[address] [facility] REPOSITORY TYPE CODE TESTS RESULT OUT OF REFERENCE UNITS RANGE LAB L501.080 70-110 mg/dL High BEDSIDE GLU 237 Result Comment: Dr Orders Followed Insulin Given MANAGEMENT OF PATIENT CARE PER NURSING PROTOCOL Performed By: #### L501.080 #### [facility] Point of Care [address] [place] [address] BEDSIDE GLUCOSE Collected: 09/21/2018 Status: F Source: [place] 4:[address] [facility] REPOSITORY TYPE CODE TESTS RESULT OUT OF RANGE REFERENCE UNITS LAB L501.080 70-110 mg/dL Normal BEDSIDE GLU 101 Result Comment: MANAGEMENT OF PATIENT CARE PER NURSING PROTOCOL Performed By: #### L501.080 #### [facility] Point of Care [address] [place] [address] CBC W/DIFF, AUTOMATED Collected: 09/21/2018 Status: F Source: [place] 4:[address] [facility] REPOSITORY TYPE CODE TESTS RESULT OUT OF RANGE REFERENCE UNITS LAB L100.1000 4.4-11.0 K/mm3 Normal WBC 8.9 LAB L100.1200 4.2-5.4 M/mm3 Low RBC 3.53 LAB L100.1300 12.0-15.0 g/dl Low HGB 10.0 LAB L100.1400 37-47 % Low HCT 30.9 LAB L100.1500 81-99 fL Normal MCV 87.5 LAB L100.1600 27.0-32.0 pg Normal MCH 28.3 LAB L100.1700 32-36 g/gl Normal MCHC 32.4 LAB L100.1810 11.6-14.6 % Normal RDW CV 13.7 LAB L100.1820 35.1-43.9 fl Normal RDW SD 43.7 LAB L100.1900 150-450 K/mm3 Normal PLT 245 LAB L100.2000 6.2-12.0 fl Normal MPV 10.7 LAB L100.2100 47-70 % Normal NEUT% 69.9 LAB L100.2200 19-41 % Low LY% 16.7 LAB L100.2300 0-10 % Normal MONO% 8.2 LAB L100.2400 0-5 % Normal EO% 4.4 LAB L100.2500 0-1 % Normal BASO% 0.7 LAB L100.2550 0.0-0.9 % Normal IM GRAN % 0.100 Result Comment: IG% - Immature Granulocytes (promyelocytes, myelocytes and metamyelocytes) > 1% indicates that a LEFT SHIFT is Present. LAB L100.2620 2.0-7.7 X10 3/uL Normal Absolute Neut 6.2 LAB L100.2720 0.83-4.51 X10 3/ul Normal Absolute Lymph 1.49 Performed By: #### L100.0100 #### [facility] [address] [place], [place], [address] ABDOMEN/PELVIS WITHOUT Observed: 09/21/2018 Status: F Source: [place] CONT 4:[address] [facility] REPOSITORY [facility] Imaging Services [address] [place] [address] Abdomen/Pelvis without Cont MR#: [id number] Acct: [id number] Name: DIONY CARRILLO Rep #: [id number] : 1965 F 53 From: Jefe Cesar MD PCP: Alessandro Eric MD Status: ADM IN Study: Abdomen/Pelvis without Cont Date of Exam: 09/21/18 Exam# [id number] Ordering Dr: Gustavo Cleary MD STUDY: CT ABDOMEN AND PELVIS WITHOUT CONTRAST REASON FOR EXAM: Female, 53 years old. Decreased hemoglobin status post catheterization RADIATION DOSAGE (If Supplied By Facility): CTDIvol = ( 12.46 ) mGy, DLP = ( 659.94 ) mGycm TECHNIQUE: Transaxial images were obtained from the dome of the diaphragm to the symphysis pubis without oral contrast, and without intravenous contrast. Sagittal and coronal images were reconstructed. Individualized dose optimization techniques were used for this CT. COMPARISON: None. FINDINGS: There is minor atelectasis within the dependent portion of the lungs bilaterally. The visualized portions of the heart are within normal limits. Normal liver. There is increased attenuation within the gallbladder possibly due to tiny calcified gallstones or vicarious excretion of contrast from prior contrast studies. Normal spleen. Normal pancreas. Normal bilateral adrenal glands. Normal right kidney. Normal left kidney. Normal visualized stomach. Normal small intestine. Normal colon. The appendix is visualized and appears normal. Minor atherosclerotic changes of the aorta without evidence for aneurysm.. Normal inferior vena cava. Normal retroperitoneum. There is mild prominence of the uterus which is deviated towards the left depressing the dome of the bladder. Small fat-containing umbilical hernia. Lumbar spine demonstrates mild spondylosis. There is mild stranding in the fat of the right groin consistent with recent catheterization however there is no appreciable hematoma. CT/Abdomen/Pelvis without Cont IMPRESSION: Post catheterization stranding in the right inguinal fat but no evidence for hematoma in the groin or retroperitoneal bleed. Possible tiny calcified stones in the gallbladder versus vicarious excretion of contrast. This may be differentiated with gallbladder sonogram if clinically warranted Electronically Signed: Jefe Cesar MD at 16:57 EST , Service support , CC: Gustavo Cleary MD; Alessandro Eric MD Mobile Lounge Driver Or Operator: Signed CBC W/DIFF, AUTOMATED Collected: 09/21/2018 Status: F Source: [place] 2:[address] [facility] REPOSITORY TYPE CODE TESTS RESULT OUT OF RANGE REFERENCE UNITS LAB L100.1000 4.4-11.0 K/mm3 Normal WBC 8.8 LAB L100.1200 4.2-5.4 M/mm3 Low RBC 3.32 LAB L100.1300 12.0-15.0 g/dl Low HGB 9.4 LAB L100.1400 37-47 % Low HCT 29.2 LAB L100.1500 81-99 fL Normal MCV 88.0 LAB L100.1600 27.0-32.0 pg Normal MCH 28.3 LAB L100.1700 32-36 g/gl Normal MCHC 32.2 LAB L100.1810 11.6-14.6 % Normal RDW CV 13.3 LAB L100.1820 35.1-43.9 fl Normal RDW SD 40.7 LAB L100.1900 150-450 K/mm3 Normal PLT 272 LAB L100.2000 6.2-12.0 fl Normal MPV 10.7 LAB L100.2100 47-70 % Normal NEUT% 63.8 LAB L100.2200 19-41 % Normal LY% 24.1 LAB L100.2300 0-10 % Normal MONO% 6.6 LAB L100.2400 0-5 % Normal EO% 4.8 LAB L100.2500 0-1 % Normal BASO% 0.6 LAB L100.2550 0.0-0.9 % Normal IM GRAN % 0.100 Result Comment: IG% - Immature Granulocytes (promyelocytes, myelocytes and metamyelocytes) > 1% indicates that a LEFT SHIFT is Present. LAB L100.2620 2.0-7.7 X10 3/uL Normal Absolute Neut 5.6 LAB L100.2720 0.83-4.51 X10 3/ul Normal Absolute Lymph 2.12 Performed By: #### L100.0100 #### [facility] [address] [place], [address] BEDSIDE GLUCOSE Collected: 09/21/2018 Status: F Source: [place] 2:[address] [facility] REPOSITORY TYPE CODE TESTS RESULT OUT OF REFERENCE UNITS RANGE LAB L501.080 70-110 mg/dL High BEDSIDE GLU 157 Result Comment: MANAGEMENT OF PATIENT CARE PER NURSING PROTOCOL Performed By: #### L501.080 #### [facility] Point of Care [address] [place] [address] CONSULTATION Observed: 09/21/2018 Status: F Source: [place] 11:[address] [facility] REPOSITORY [facility] Medical Records Department [address] [place] [address] Consultation 09/21/18 0641 MR#: [id number] Acct: [id number] Name: DIONY CARRILLO Rep #: [id number] : 1965 53 From: Saravanan Jean Baptiste MD PCP: Alessandro Eric MD Status: ADM IN Y Location: ICU [id number] Reason for Consult Date of Consultation: 09/21/18 Reason for Consultation: Chest pain History of Present Illness: The patient is a 53 year old F with a history of diabetes mellitus who presented to the emergency room with chest discomfort. She says that she started having the above approximately 2 hours prior to calling the emergency medical services. She described it as a heaviness as well as radiating to the left side of her neck and back. She apparently was in so much discomfort that she is also called her family members who found her on the floor. She was brought to the emergency room was evaluated she was noted to have an elevated blood sugar. Her blood sugar was apparently elevated at home as well and she took 25 units of insulin. An electrocardiogram performed in the emergency room did not demonstrate any significant ischemic changes her cardiac troponin enzymes were mildly abnormal. Cardiology was called in the emergency room for evaluation and management. Since being admitted to the progressive care unit she has denied any worsening of her chest discomfort. She thinks that she has had some twinges however since admission. At this particular time she is free of any chest discomfort. She has had no dizziness or diaphoresis no near syncope or syncope. [] Past Medical History Allergies/Adverse Reactions: Allergies oxycodone HCl [From OxyContin] Allergy (Verified 09/20/18 20:55) Rash Penicillins Allergy (Verified 09/20/18 20:55) Shortness of breath Home Medications: Ambulatory Orders Medication Instructions Recorded Past Medical History (Chronic Problems): Chronic Problems HLD (hyperlipidemia) (Chronic) Cellulitis (Chronic) Neuropathic pain (Chronic) GERD (gastroesophageal reflux disease) (Chronic) Hypomagnesemia (Chronic) Back pain, chronic (Chronic) Hyponatremia (Chronic) Depression (Chronic) RLS (restless legs syndrome) (Chronic) Type II diabetes mellitus, uncontrolled (Chronic) Anxiety state (Chronic) Surgical History: - - status post I AND D of R foot 5th metatarsal abscess, 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 Bilateral carpal tunnel surgery 1994, right shoulder surgery in 1994, section x2. Psychiatric History: Anxiety, Depression BEHAVIORAL THERAPIST History: No pertinent BEHAVIORAL THERAPIST history - *Family History Maternal History Items: Cancer - Patient had a brother who had testicular cancer; and later cancer in his stomach., Diabetes, Hypertension, - - Her mother at the age of 67 to a blood clot to the brain. She had had multiple strokes preceding that. Patient had 3 brothers who had bypass surgery in their 50s. Paternal History Items: - - Patient states her father when she was 5 years old, denies known medical history, denies known cardiac history. Sibling History Items: - - She has one brother who is secondary to cancer and she does not know what kind of cancer he had. She also has 3 brothers with a history of cardiovascular disease, stents and coronary artery bypass grafting. Smoking Status: Never smoker Alcohol: None Review of Systems - Review of Systems General: Denies: Fever, Night Sweats, Fatigue HEENT: Denies: Vision Change Cardiovascular: Reports: Chest Discomfort, Chest Discomfort at Rest, Chest Tightness. Denies: Shortness of Breath, Orthopnea, PND, Peripheral Edema, Palpitations, Lightheadedness, Dizziness, Near Syncope, Syncope Respiratory: Denies: Cough, Sputum Production, Hemoptysis Gastrointestinal: Denies: Indigestion, Hematemesis, Hematochezia, Melena Genitourinary: Denies: Dysuria, Hematuria Muscoloskeletal: Denies: Myalgias Skin: Denies: Rash Neurological: Denies: Dizziness Psychiatric: Reports: Anxiety Endocrine: Denies: Unexplained Weight Loss Hematologic/ Lymphatic: Denies: Anemia Subjectve: Lady in no distress Objective: Vital Signs Temp Pulse Resp BP Pulse Ox 97.6 F L 84 18 131/77 H 98 09/21/18 03:40 09/21/18 06:22 09/21/18 03:40 09/21/18 03:40 09/21/18 03:40 Oxygen Flow Rate (L/min) 2 Oxygen Delivery Method Nasal Cannula Weight: 182 lb 12.211 oz Body Mass Index (BMI) 29.3 Finger Stick Blood Glucose 227 Intake and Output for Last 24 Hours Intake Total 1277 / 1277 Output Total 675 / 675 Balance 602 / 602 General: Awake, Alert, Oriented x 3 HEENT: PERRL, EOMI, Sclera Non Icteric Neck: Supple, Good ROM, No Lymph Node Enlargement Lungs: Clear to auscultation Cardiovascular: Regular Rhythm, Normal S1, Normal S2, No Murmurs, No Rubs, No Gallops Vascular: No Carotid Bruits, Normal Femoral Pulses, Normal Radial Pulses, Normal Dorsalis Pedal Pulse, Normal Posterior Tibial Pulses Abdomen: Bowel Sounds Present, Soft, Non Tender, No HSM, No Organomegaly Extremities: No Cyanosis, No Clubbing, No edema Skin: Ulcers Lymphatic: No Lymph Node Enlargement Neurological: No Focal Motor or Sensory Deficit Psych/Mental Status: Flat Affect 09/20/18 21:45: WBC 9.2, RBC 4.13 L, Hgb 11.7 L, Hct 35.8 L, MCV 86.7, MCH 28.3, MCHC 32.7, RDW 13.5, RDW Differential 42.3, Plt Count 362, MPV 10.8, Immature Gran % (Auto) 0.000, Neut % (Auto) 65.9, Lymph % (Auto) 24.0, [place] % (Auto) 4.2, Eos % (Auto) 5.2 H, Baso % (Auto) 0.7, Absolute Neuts (auto) 6.1, Total Counted Not Reportable 09/20/18 21:45: Sodium 137, Potassium 3.6, Chloride 101, Carbon Dioxide 24.0, Anion Gap 12, BUN 24 H, Creatinine 1.12 H, Est GFR (MDRD) Af Amer 65, Est GFR (MDRD) Non-Af 54 L, BUN/Creatinine Ratio 21.4 H, Glucose 443 H, Calcium 8.8, Phosphorus 3.4, Magnesium 1.9, Total Bilirubin 0.20, Direct Bilirubin 0.06, Troponin I 0.253 H 09/20/18 22:13: VBG pH 7.36, VBG pO2 45 H, VBG O2 Sat (Calc) 79 H, VBG O2 Content 23, VBG Base Excess -4 L 09/21/18 01:20: Troponin I 3.210 H* 09/21/18 03:48: Troponin I 5.020 H* 09/21/18 03:48: Triglycerides 293 H, Cholesterol 248 H, LDL Cholesterol 146 H, VLDL Cholesterol 59 H, HDL Cholesterol 43 09/21/18 03:48: WBC 9.2, RBC 3.73 L, Hgb 10.8 L, Hct 32.3 L, MCV 86.6, MCH 29.0, MCHC 33.4, RDW 13.1, RDW Differential 39.7, Plt Count 332, MPV 10.9, Immature Gran % (Auto) 0.200, Neut % (Auto) 64.7, Lymph % (Auto) 23.1, [place] % (Auto) 6.8, Eos % (Auto) 4.5, Baso % (Auto) 0.7, Absolute Neuts (auto) 6.0, Total Counted Not Reportable 09/21/18 03:48: PT 14.4, INR 1.1, APTT 39.4 H 09/21/18 03:48: Sodium 141, Potassium 3.8, Chloride 108 H, Carbon Dioxide 23.0, Anion Gap 10, BUN 17, Creatinine 0.70, Est GFR (MDRD) Af Amer 112, Est GFR (MDRD) Non-Af 93, BUN/Creatinine Ratio 24.2 H, Glucose 149 H, Calcium 8.5 Rhythm: EKG: Normal sinus rhythm with no acute changes Assessment/Plan 1. Chest pain-NSTEMI * Patient presents with chest discomfort and is noted to have a non-ST elevation myocardial infarction. * Agree with the plan as instituted * Continue aspirin * Continue beta-kunal * Patient loaded with clopidogrel * High intensity statin * Will scheduled for cardiac catheterization this morning. The risk benefits and alternatives explained to the patient who understands and agrees to proceed * 2. Hyperlipidemia * The patient has markedly elevated lipid profile * High intensity statins have been recommended * 3. Hypertension * Patient noted to be hypertensive on presentation and will recommend starting an MYLA inhibitor in addition to the beta-kunal * Thank you for allowing me to participate in the care of your patient. Please don't hesitate to call if any issues arise 09/21/18 1115 <Electronically signed by Saravanan Jean Baptiste MD> Date Saravanan Jean Baptiste MD Cosigner Signature (if applicable): Date CC: Saravanan Jean Baptiste MD; Alessandro Eric MD Signed BEDSIDE GLUCOSE Collected: 09/21/2018 Status: F Source: [place] 11:[address] [facility] REPOSITORY TYPE CODE TESTS RESULT OUT OF REFERENCE UNITS RANGE LAB L501.080 70-110 mg/dL High BEDSIDE GLU 220 Result Comment: MANAGEMENT OF PATIENT CARE PER NURSING PROTOCOL Performed By: #### L501.080 #### [facility] Point of Care [address] [place] [address] HISTORY AND PHYSICAL Observed: 09/21/2018 Status: F Source: [place] EXAM 9:[address] [facility] REPOSITORY [facility] Medical Records Department [address] [place] [address] History and Physical 09/20/18 2341 MR#: [id number] Acct: [id number] Name: DIONY CARRILLO Rep #: [id number] : 1965 53 From: Gopi Bach MD PCP: Alessandro Eric MD Status: ADM IN Y Location: ICU [id number] Problem List (1) NSTEMI (non-ST elevated myocardial infarction) Status: Acute (2) HLD (hyperlipidemia) Status: Chronic (3) RLS (restless legs syndrome) Status: Chronic (4) Type II diabetes mellitus, uncontrolled Status: Chronic (5) Diabetic foot ulcer associated with type 2 diabetes mellitus Status: Chronic History of Present Illness Date of Admission: 09/20/18 Chief Complaint: chest Pain The patient is a 53 year old F with a significant history of diabetes; hyperlipidemia who presented with excruciating sudden onset left-sided dull chest pain that radiated to her upper back. Her Pain was constant but it gradually eased up by the time that the paramedics came. Associated with her symptoms is nausea without vomiting. She denies any diaphoresis. She denies any alleviating or aggravating factors to her pain. At the time of her chest pain she also checked her blood glucose and her blood glucose was more than 600 for which reason she gave herself 25 units of short- acting insulin. At emergency department she was given IV fluids with potassium which dropped her blood glucose. She was found to have a normal pH and no anion gap. Cardiology was consulted and recommendation was to give therapeutic dose of Lovenox and to load patient with Plavix; and cardiology will see patient in a.m. Patient had elevated troponin at emergency department which trended up significantly. At the time of my examination patient reported that her chest pain had gone. Patient reported that in some time past she had chest pain for which reason she came to our hospital and was airlifted to the hospital. She reported that a cath at that time showed only Little blockage. She reports of 3 brothers who had heart cath in their 50S; and a sister at age 62 who had a CABG on the same day the patient presented to the emergency department (09/20/2018) Past Medical History Past Medical History (Chronic Problems): Chronic Problems HLD (hyperlipidemia) (Chronic) Cellulitis (Chronic) Neuropathic pain (Chronic) GERD (gastroesophageal reflux disease) (Chronic) Hypomagnesemia (Chronic) Back pain, chronic (Chronic) Hyponatremia (Chronic) Depression (Chronic) Diabetic foot ulcer associated with type 2 diabetes mellitus (Chronic) RLS (restless legs syndrome) (Chronic) Type II diabetes mellitus, uncontrolled (Chronic) Anxiety state (Chronic) Allergies oxycodone HCl [From OxyContin] Allergy (Verified 09/20/18 20:55) Rash Penicillins Allergy (Verified 09/20/18 20:55) Shortness of breath Home Medications: Ambulatory Orders Medication Instructions Recorded Surgical History: - - status post I AND D of R foot 5th metatarsal abscess, R 5th toe amputation, and partial R 5th metatarsal amputation all in 2014. Bilateral carpal tunnel surgery 1994, right shoulder surgery in 1994, section x2. Psychiatric History: Anxiety, Depression BEHAVIORAL THERAPIST History: No pertinent BEHAVIORAL THERAPIST history Smoking Status: Never smoker Alcohol: None - *Family History Maternal History Items: Cancer - Patient had a brother who had testicular cancer; and later cancer in his stomach., Diabetes, Hypertension, - - Her mother at the age of 67 to a blood clot to the brain. She had had multiple strokes preceding that. Patient had 3 brothers who had bypass surgery in their 50s. Paternal History Items: - - Patient states her father when she was 5 years old, denies known medical history, denies known cardiac history. Sibling History Items: - - She has one brother who is secondary to cancer and she does not know what kind of cancer he had. She also has 3 brothers with a history of cardiovascular disease, stents and coronary artery bypass grafting. Review of Systems Constitutional: Denies: Chills, Fever, Weight Change HEENT: Denies: Head Aches, Sinus Congestion, Sinus Drainage Cardiovascular: Reports: Chest Pain. Denies: Palpitations Respiratory: Denies: Cough, Shortness of breath at rest, Sputum production Gastrointestinal: Reports: Nausea. Denies: Abdominal Pain, Vomiting Genitourinary: Denies: Dysuria Musculoskeletal: Reports: Back Pain. Denies: Joint Pain, Joint Tenderness Skin: Denies: Rash, Wounds Neurological: Denies: Numbness, Tingling, Focal weakness Psychiatric: Denies: Anxiety, Depression, Homicidal Ideations, Suicidal Ideations Hematologic/ Lymphatic: Denies: Easy Bruising, Easy Bleeding VTE Information - Inpt Only VTE Present on Admission: No VTE Mechan Device Prophylaxis: None VTE Pharm Prophylaxis ordered?: Yes Patient Problems: Active and Suspected Problems NSTEMI (non-ST elevated myocardial infarction) (Acute) - Physical Exam General: Alert, Oriented x3, Cooperative HEENT: Atraumatic, PERRLA, EOMI, Normocephalic Neck: Supple, No JVD, Negative Carotid Bruits, - - Tender chest. Lungs: Clear to auscultation, Normal air movement Cardiovascular: Regular rate, No murmurs Abdomen: Bowel Sounds Present, Soft, Non Tender Extremities: No edema, Capillary Refill Less than 3 Seconds Skin: No rashes, No breakdown Musculoskeletal: No Tenderness to Palpation of Joints or Extremities Neurological: Cranial nerves II-XII grossly intact Psych/Mental Status: Normal Affect, Appropriate Vital Signs Temp Pulse Resp BP Pulse Ox 98.5 F 99 19 H 147/85 H 99 09/20/18 20:56 09/20/18 23:09 18 23:09 09/20/18 23:09 09/20/18 23:09 Oxygen Delivery Method Room Air Weight: 86.4 kg Body Mass Index (BMI) 30.7 Finger Stick Blood Glucose 560 Laboratory Tests Past 24 Hrs WBC 9.2 RBC 4.13 L Hgb 11.7 L Hct 35.8 L MCV 86.7 MCH 28.3 POC Glucose POC Glucose 227 H > 500 H* Assessment/Plan All Active Problems NSTEMI (non-ST elevated myocardial infarction) (Acute) Hepatitis B (Resolved) The patient is a 53 year old F with a significant history of diabetes; hyperlipidemia who presented with excruciating sudden onset left-sided dull chest pain that radiated to her upper back; and with a strong family history of heart disease who was found to have steady increase in her troponin consistent with non-ST elevation PR. Chest pain Admit to a monitored bed on PCU CXR independently reviewed confirms non acute cardiopulmonary process EKG did not show ST elevations. Received aspirin 324 at emergency department ASA 81 mg p.o. daily ordered; SL NTG 0.4 mg prn as needed for chest pain Morphine as needed for chest pain. Serial cardiac enzymes shows trending troponin. Stat EKG as needed for chest pain. Received therapeutic dose of Lovenox at emergency department. Received loading dose of aspirin at emergency department. Maintenance dose of Plavix continued. On home Rosuvastatin 40 mg daily. Will change to Lipitor 80 mg while inpatient here. Fasting Lipids ordered. We will start patient on low-dose metoprolol. Cardiology consult for evaluation for possible cardiac cath. Case was discussed with tow operator. Acute hyperglycemia On admission blood glucose was not within goal. At home patient reported blood glucose of more than 600 for which she took 25 units of short-acting insulin. Patient takes Lantus 30 units every morning. However on the day of admission she reported that because she was busy she did not take her morning dose of Lantus. Likely her acute hypoglycemia was because she did not take her morning dose of Lantus. Correction scale insulin for every 4 hours while patient n.p.o. Normal saline with potassium as patient is npo for preparation for likely cath. Left lateral diabetic ulcer. Patient reported that she had a wound VAC that was removed on the same day of admission. Patient reported that she had a debridement and was on p.o. and IV antibiotics for infection. She completed antibiotic therapy. Wound care consult. Home oxycodone as needed continued Hyperlipidemia We will check fasting lipids On home rosuvastatin. Will change to Lipitor 80 mg while inpatient. Elevated Blood pressure without diagnosis of HTN Because of concomitant non-ST elevation PR we will start patient on metoprolol 12.5 mg p.o. twice daily. DVT prophylaxis Not indicated at this time as patient received therapeutic dosing for non-ST elevation PR. Consider DVT prophylaxis when indicated in due course. Code Visit Inpatient E AND M: 70650 Init Hosp L3 09/21/18 09 <Electronically signed by Gopi Bach MD> Date Gopi Bach MD Cosigner Signature: Date (if applicable) CC: Gopi Bach MD; Alessandro Eric MD Signed ACT ACTIVATED CLOTTING Collected: 09/21/2018 Status: F Source: [place] TIME 8:[address] [facility] REPOSITORY TYPE CODE TESTS RESULT OUT OF RANGE REFERENCE UNITS LAB L9100.0100 74-137 sec High ACTk CLOT 191 TIME Performed By: #### L9100.0100 #### [facility] Point of Care [address] [place], [place] [address] TROPONIN-I Collected: 09/21/2018 Status: F Source: [place] 6:[address] [facility] REPOSITORY TYPE CODE TESTS RESULT OUT OF RANGE REFERENCE UNITS LAB L501.4010 <0.045 ng/mL High alert 7.730 TROPONIN-I Result Comment: Critical Result(s) Called at: 07:34:12 09/21/2018 by: Elizabeth Guevara TROPONIN-I EXPECTED VALUES <0.045 Negative 0.045 - 0.590 Consistent with Cardiac Damage > OR = 0.600 Critical Value Not every elevated troponin is indicative of PR. These values should be used with clinical judgement in examining the patient's clinical picture for diagnosis. To establish a diagnosis of PR versus myocardial injury, there must be a demonstrated rise and/or fall in the troponin values, in addition to ischemic symptoms, EKG changes, new regional wall motion abnormality, and/or angiographical evidence. PLEASE NOTE: REFERENCE RANGES EDITED 18 Performed By: #### L501.4010 #### [facility] [address] [place], [address] BEDSIDE GLUCOSE Collected: 09/21/2018 Status: F Source: [place] 6:[address] [facility] REPOSITORY TYPE CODE TESTS RESULT OUT OF REFERENCE UNITS RANGE LAB L501.080 70-110 mg/dL High BEDSIDE GLU 212 Result Comment: MANAGEMENT OF PATIENT CARE PER NURSING PROTOCOL Performed By: #### L501.080 #### [facility] Point of Care [address] [place], [place] [address] CBC W/DIFF, AUTOMATED Collected: 09/21/2018 Status: F Source: [place] 3:[address] [facility] REPOSITORY TYPE CODE TESTS RESULT OUT OF RANGE REFERENCE UNITS LAB L100.1000 4.4-11.0 K/mm3 Normal WBC 9.2 LAB L100.1200 4.2-5.4 M/mm3 Low RBC 3.73 LAB L100.1300 12.0-15.0 g/dl Low HGB 10.8 LAB L100.1400 37-47 % Low HCT 32.3 LAB L100.1500 81-99 fL Normal MCV 86.6 LAB L100.1600 27.0-32.0 pg Normal MCH 29.0 LAB L100.1700 32-36 g/gl Normal MCHC 33.4 LAB L100.1810 11.6-14.6 % Normal RDW CV 13.1 LAB L100.1820 35.1-43.9 fl Normal RDW SD 39.7 LAB L100.1900 150-450 K/mm3 Normal PLT 332 LAB L100.2000 6.2-12.0 fl Normal MPV 10.9 LAB L100.2100 47-70 % Normal NEUT% 64.7 LAB L100.2200 19-41 % Normal LY% 23.1 LAB L100.2300 0-10 % Normal MONO% 6.8 LAB L100.2400 0-5 % Normal EO% 4.5 LAB L100.2500 0-1 % Normal BASO% 0.7 LAB L100.2550 0.0-0.9 % Normal IM GRAN % 0.200 Result Comment: IG% - Immature Granulocytes (promyelocytes, myelocytes and metamyelocytes) > 1% indicates that a LEFT SHIFT is Present. LAB L100.2620 2.0-7.7 X10 3/uL Normal Absolute Neut 6.0 LAB L100.2720 0.83-4.51 X10 3/ul Normal Absolute Lymph 2.13 Performed By: #### L100.0100 #### [facility] [address] [place], [place], [id number] PROTHROMBIN TIME W/INR Collected: 09/21/2018 Status: F Source: [place] 3:[address] [facility] REPOSITORY TYPE CODE TESTS RESULT OUT OF RANGE REFERENCE UNITS LAB L300.4150 11.7-14.9 SECONDS Normal PROTIME 14.4 LAB L300.4200 Normal INR 1.1 Performed By: #### L300.3900, L300.4310, L500.2500 #### [facility] [address] [place], [place], [id number] PARTIAL THROMBOPLAST Collected: 09/21/2018 Status: F Source: [place] TIME 3:[address] [facility] REPOSITORY TYPE CODE TESTS RESULT OUT OF REFERENCE UNITS RANGE LAB L300.4310 24.1-36.2 Seconds High PTT 39.4 Performed By: #### L300.3900, L300.4310, L500.2500 #### [facility] [address] [place], [place], [id number] BASIC METABOLIC Collected: 09/21/2018 Status: F Source: [place] PROFILE (BMP) 3:[address] [facility] REPOSITORY TYPE CODE TESTS RESULT OUT OF RANGE REFERENCE UNITS LAB L501.0100 74-106 mg/dL High GLU 149 Result Comment: Fasting Glucose result greater than or equal to 126 mg/dL suggests DIABETES MELLITUS per A.D.A. criteria. Please note revised GLUCOSE reference range effective 2017. LAB L501.1000 7-18 mg/dL Normal BUN 17 LAB L501.1100 0.55-1.02 mg/dL Normal CREAT,SERUM 0.70 Result Comment: The validity of the calculated GFR AND GFRAA in patients over 70 years has not been determined. Clinical correlation is essential. LAB L501.1110 >60 mL/min Normal EST GFR 93 Result Comment: Non- GFR Calc LAB L501.1115 >60 mL/min Normal EST GFR - AA 112 Result Comment: GFR Calc LAB L501.1255 ml/min Normal Estimated CRCL 87.01 LAB L501.1300 10-20 RATIO High BUN/CRE 24.2 LAB L501.2200 8.5-10 mg/dL Normal .1 CA 8.5 LAB L501.5300 136-14 mmol/L Normal 5 NA 141 LAB L501.5600 3.5-5. mmol/L Normal 1 K 3.8 LAB L501.5900 98-107 mmol/L High CL 108 LAB L501.6100 21.0-3 mmol/L Normal 2.0 CO2 23.0 LAB L501.6200 5-15 Normal GAP 10 Performed By: #### L300.3900, L300.4310, L500.2500 #### [facility] [address] [place], [address] TROPONIN-I Collected: 09/21/2018 Status: F Source: [place] 3:[address] [facility] REPOSITORY Order Comment: 'TROP' Serial specimen #1, #2 or #3: 3 TYPE CODE TESTS RESULT OUT OF RANGE REFERENCE UNITS LAB L501.4010 <0.045 ng/mL High alert 5.020 TROPONIN-I Result Comment: Critical Result(s) Called at: 04:51:17 09/21/2018 by: YANETH SINGH TO JERRI HOLT TROPONIN-I EXPECTED VALUES <0.045 Negative 0.045 - 0.590 Consistent with Cardiac Damage > OR = 0.600 Critical Value Not every elevated troponin is indicative of PR. These values should be used with clinical judgement in examining the patient's clinical picture for diagnosis. To establish a diagnosis of PR versus myocardial injury, there must be a demonstrated rise and/or fall in the troponin values, in addition to ischemic symptoms, EKG changes, new regional wall motion abnormality, and/or angiographical evidence. PLEASE NOTE: REFERENCE RANGES EDITED 18 Performed By: #### L501.4010 #### [facility] [address] [place], [address] LIPID PROFILE Collected: 09/21/2018 Status: F Source: [place] 3:[address] [facility] REPOSITORY TYPE CODE TESTS RESULT OUT OF RANGE REFERENCE UNITS LAB L501.4900 200 mg/dL High CHOL 248 Result Comment: <200 mg/dL Desirable 200-240 mg/dL Borderline >240 mg/dL High Risk LAB L501.5000 mg/dL High TRIG 293 Result Comment: The drugs N-Acetylcysteine and Metamizole may falsely depress this assay. Serum Triglycerides Reference Interval Normal <150 mg/dL Borderline high 150 - 199 mg/dL High 200 - 499 mg/dL Very High > or = 500 mg/dL LAB L501.6400 mg/dL Normal HDL 43 Result Comment: The drugs N-Acetylcysteine and Metamizole may falsely depress this assay. Reference Range HDL <40 mg/dL Low HDL Cholesterol HDL >or= 60 mg/dL High HDL Cholesterol LAB L501.6500 0-130 mg/dL High LDL 146 LAB L501.6600 5-40 mg/dL High VLDL 59 Performed By: #### L500.4100 #### [facility] [address] [place], [place], [address] TROPONIN-I Collected: 09/21/2018 Status: F Source: [place] 1:[address] [facility] REPOSITORY Order Comment: 'TROP' Serial specimen #1, #2 or #3: 2 TYPE CODE TESTS RESULT OUT OF RANGE REFERENCE UNITS LAB L501.4010 <0.045 ng/mL High alert 3.210 TROPONIN-I Result Comment: Critical Result(s) Called at: 02:09:22 09/21/2018 by: YANETH SINGH TO AIMEE WHITTEN TROPONIN-I EXPECTED VALUES <0.045 Negative 0.045 - 0.590 Consistent with Cardiac Damage > OR = 0.600 Critical Value Not every elevated troponin is indicative of PR. These values should be used with clinical judgement in examining the patient's clinical picture for diagnosis. To establish a diagnosis of PR versus myocardial injury, there must be a demonstrated rise and/or fall in the troponin values, in addition to ischemic symptoms, EKG changes, new regional wall motion abnormality, and/or angiographical evidence. PLEASE NOTE: REFERENCE RANGES EDITED 18 Performed By: #### L501.4010 #### [facility] [address] [place], [address] EMERGENCY DEPARTMENT Observed: 09/21/2018 Status: F Source: [place] SUMMARY 12:[address] [facility] REPOSITORY [facility] Medical Records Department [address] [address] Emergency Department Summary 09/20/18 2123 MR#: [id number] Acct: [id number] Name: DIONY CARRILLO Rep #: [id number] : 1965 53 From: Lexie Savage MD PCP: Alessandro Eric MD Status: ADM MITCH - ER Visit Summary Date of Service: 09/20/18 Chief Complaint: Chest pain , hyperglycemia History of Present Illness: The patient is a 53 F who presents for chest pain and hyperglycemia. Patient began having chest pain 2 hours prior to calling EMS. She also had nausea and diarrhea. She called EMS because she was in so much discomfort. Pain was left-sided radiating into the back. She checked her blood sugar at home and it was greater than 600. She took 25 units of insulin. Patient family found her on the floor crying but patient denies a fall. She just laid down because she was in pain. Patient denies any recent illness. She denies any medication noncompliance. Patient denies fever, sore throat, URI symptoms, shortness of breath, abdominal pain, or other complaints other than chronic restless leg. Patient does not smoke. Physical Examination: Vital signs: afebrile, hemodynamically stable, no hypoxia on room air General: well nourished, well developed, in no distress, constant large movements of the right lower extremity Skin: warm, dry, no rash, no pallor HEENT: normocephalic and atraumatic; PERRL, EOMI, dry mucous membranes Cardiovascular: Tachycardic rate and rhythm without murmurs, no peripheral edema, 2+ pulses all distal extremities Respiratory: No increased work of breathing, lungs are clear to auscultation bilaterally, no rales, rhonchi or wheezing Abdominal: Abdomen is soft, nontender with normoactive bowel sounds, no guarding or rebound, no masses MSK: Moves all extremities, no deformities, normal strength Neuro: Awake and alert, oriented 4. No facial droop, sensation and motor function intact and symmetric Test Results: Abnormal Lab Results WBC 9.2 RBC 4.13 L Hgb 11.7 L WBC RBC Hgb Clinical Impression(s) from Imaging Studies Chest X-Ray 09/20/18 21:35 IMPRESSION: Decreased inspiratory effort without acute cardiopulmonary disease or major interval change. Electronically Signed: Arben Richards DO at 22:04 EST Tel [phone], Service support , Medications Given Potassium Chloride 40 meq/ (Lactated Ringer's) 1,020 mls @ 250 mls/hr IV .Q4H5M [facility] Last Admin: 09/20/18 23:27 Dose: 250 mls/hr Discontinued Medications Aspirin (Aspirin, Baby) 324 mg PO X1 ONE Stop: 09/20/18 22:35 Last Admin: 09/20/18 22:57 Dose: 324 mg Clopidogrel Bisulfate (Plavix) 300 mg PO X1 ONE Stop: 09/20/18 23:34 Last Admin: 09/21/18 00:11 Dose: 300 mg Enoxaparin Sodium (Lovenox) 90 mg SC X1 ONE Stop: 09/20/18 23:34 Last Admin: 09/21/18 00:11 Dose: 90 mg Sodium Chloride () 1,000 mls @ 999 mls/hr IV .Q1H1M ONE Stop: 09/20/18 22:22 Last Admin: 09/20/18 21:48 Dose: 999 mls/hr Emergency Department Course and Treatment: Blood sugar was 560. Patient was given IV fluids for hydration. Labs were performed. EKG showed a sinus tachycardia with no ischemic changes or ectopy. Patient's chest x-ray showed no acute process. BMP showed no anion gap, normal bicarb, glucose of 443. ABG showed a normal pH, normal CO2, no evidence of a metabolic acidosis. She was given lactated Ringer's with potassium chloride in anticipation that she might require insulin, and her potassium was on the low end of normal. Troponin was elevated at 0.253, and compared to patient's prior troponins, this is elevated. Patient was reevaluated and is not having any chest pain, shortness of breath, abdominal pain, back pain neck pain or any other symptoms at this time. Her blood sugar after IV fluids was 227. This was without any insulin given in the emergency department. Because of the elevated troponin and the chest pain at onset of patient's symptoms, she was discussed with Dr. Jean Baptiste. He recommended a dose of Lovenox and Plavix. He will see her first thing in the morning on consult. Patient was admitted to the hospitalist for further management of her hyperglycemia and of her resolved chest pain with elevated troponin. Treatment Plan: [] Disposition: [] Impression: Chest pain, elevated troponin, hyperglycemia This note was generated with [employer] dictation software. It may contain incorrect words, spelling, and punctuation that were not noted in review of the chart prior to signing ED Disposition - Plan for ED Patient: Disposition: Acute Care Hospital [facility] Chief Complaint: Hyperglycemia What to do if you have Problems For any increased pain, shortness of breath, bleeding, nausea or vomiting, chest pain, or any unexpected problems, contact your Primary Care Provider. Call [facility] ([phone]) or report to the closest Emergency Room. Call 911 if necessary. 09/21/18 0036 <Electronically signed by Lexie Savage MD> Date Lexie Savage MD Cosigner Signature (If Indicated): Date CC: Alessandro Eric MD BEDSIDE GLUCOSE Collected: 09/20/2018 Status: F Source: [place] 11:[address] [facility] REPOSITORY TYPE CODE TESTS RESULT OUT OF REFERENCE UNITS RANGE LAB L501.080 70-110 mg/dL High BEDSIDE GLU 227 Result Comment: MANAGEMENT OF PATIENT CARE PER NURSING PROTOCOL Performed By: #### L501.080 #### [facility] Point of Care [address] [place], [place] [id number] VENOUS BLOOD GAS Collected: 09/20/2018 Status: F Source: [place] 10:[address] [facility] REPOSITORY TYPE CODE TESTS RESULT OUT OF RANGE REFERENCE UNITS LAB L9000.9990 Normal BLD GAS TYPE SHAUN LAB L9001.1000 L Normal SITE Brachial LAB L9001.1050 O2 Normal Delivery Dev Nasal Can LAB L9001.1055 /min Normal LPM 2.0 LAB L9001.1104 ED Normal Results To MD LAB L9001.1105 Normal Time Given 2210 LAB L9002.1110 7.32-7.42 Normal VBGpH - I-STAT 7.36 LAB L9002.1212 41-51 mmHg Low VBG pCO2 - 38.3 ISTA LAB L9002.1310 25-40 mmHg High 45 VBG PO2 I-STAT LAB L9002.2300 22-26 mmol/L 22 Normal VBG HCO3 ISTAT LAB L9002.2400 -1.0-3.5 mmol/L Low -4 VBG BE ISTAT LAB L9002.2410 50-70 % High 79 VBG SO2 ISTAT LAB L9002.2415 23-33 mmol/L [address] ISTAT Performed By: #### L9000.0810 #### [facility] Point of Care [address] [place] [address] CBC W/DIFF, AUTOMATED Collected: 09/20/2018 Status: F Source: [place] 9:[address] [facility] REPOSITORY TYPE CODE TESTS RESULT OUT OF RANGE REFERENCE UNITS LAB L100.1000 4.4-11.0 K/mm3 Normal WBC 9.2 LAB L100.1200 4.2-5.4 M/mm3 Low RBC 4.13 LAB L100.1300 12.0-15.0 g/dl Low HGB 11.7 LAB L100.1400 37-47 % Low HCT 35.8 LAB L100.1500 81-99 fL Normal MCV 86.7 LAB L100.1600 27.0-32.0 pg Normal MCH 28.3 LAB L100.1700 32-36 g/gl Normal MCHC 32.7 LAB L100.1810 11.6-14.6 % Normal RDW CV 13.5 LAB L100.1820 35.1-43.9 fl Normal RDW SD 42.3 LAB L100.1900 150-450 K/mm3 Normal PLT 362 LAB L100.2000 6.2-12.0 fl Normal MPV 10.8 LAB L100.2100 47-70 % Normal NEUT% 65.9 LAB L100.2200 19-41 % Normal LY% 24.0 LAB L100.2300 0-10 % Normal MONO% 4.2 LAB L100.2400 0-5 % High EO% 5.2 LAB L100.2500 0-1 % Normal BASO% 0.7 LAB L100.2550 0.0-0.9 % Normal IM GRAN % 0.000 Result Comment: IG% - Immature Granulocytes (promyelocytes, myelocytes and metamyelocytes) > 1% indicates that a LEFT SHIFT is Present. LAB L100.2620 2.0-7.7 X10 3/uL Normal Absolute Neut 6.1 LAB L100.2720 0.83-4.51 X10 3/ul Normal Absolute Lymph 2.21 Performed By: #### L100.0100 #### [facility] [address] [place], [address] BASIC METABOLIC Collected: 09/20/2018 Status: F Source: [place] PROFILE ([facility]) 9:[address] [facility] REPOSITORY TYPE CODE TESTS RESULT OUT OF RANGE REFERENCE UNITS LAB L501.0100 74-106 mg/dL High GLU 443 Result Comment: Glucose result greater than or equal to 200 mg/dL suggests DIABETES MELLITUS per A.D.A. criteria. Please note revised GLUCOSE reference range effective 2017. LAB L501.1000 7-18 mg/dL High BUN 24 LAB L501.1100 0.55-1.02 mg/dL High CREAT,SERUM 1.12 Result Comment: The validity of the calculated GFR AND GFRAA in patients over 70 years has not been determined. Clinical correlation is essential. LAB L501.1110 >60 mL/min Low EST GFR 54 Result Comment: Non- GFR Calc LAB L501.1115 >60 mL/min Normal EST GFR - AA 65 Result Comment: GFR Calc LAB L501.1255 ml/min Normal Estimated CRCL 54.38 LAB L501.1300 10-20 RATIO High BUN/CRE 21.4 LAB L501.2200 8.5-10 mg/dL Normal .1 CA 8.8 LAB L501.5300 136-14 mmol/L Normal 5 NA 137 LAB L501.5600 3.5-5. mmol/L Normal 1 K 3.6 LAB L501.5900 98-107 mmol/L Normal CL 101 LAB L501.6100 21.0-3 mmol/L Normal 2.0 CO2 24.0 LAB L501.6200 5-15 Normal GAP 12 Performed By: #### L500.2500, L500.3400, L501.2300, L501.4010, L501.5200 #### [facility] [address] [place], [place], [id number] LIVER PROFILE Collected: 09/20/2018 Status: F Source: [place] 9:[address] [facility] REPOSITORY TYPE CODE TESTS RESULT OUT OF RANGE REFERENCE UNITS LAB L501.1500 6.4-8.2 g/dL Normal T PROT 7.9 LAB L501.1800 3.2-5.0 g/dL Normal ALB 3.6 LAB L501.1950 2.2-4.2 g/dL High GLOB 4.3 LAB L501.4100 15-37 U/L Normal AST 17 LAB L501.4305 45-117 U/L Normal ALK P 104 LAB L501.4405 13-56 U/L Normal ALT 31 LAB L501.4600 0.20-1.00 mg/dL Normal T BILI 0.20 LAB L501.4700 0.00-0.30 mg/dL Normal D BILI 0.06 Performed By: #### L500.2500, L500.3400, L501.2300, L501.4010, L501.5200 #### [facility] [address] [place], [address] PHOSPHORUS Collected: 09/20/2018 Status: F Source: [place] 9:[address] [facility] REPOSITORY TYPE CODE TESTS RESULT OUT OF RANGE REFERENCE UNITS LAB L501.2300 2.5-4.9 mg/dL Normal PHOS 3.4 Performed By: #### L500.2500, L500.3400, L501.2300, L501.4010, L501.5200 #### [facility] [address] [place], [place], [address] TROPONIN-I Collected: 09/20/2018 Status: F Source: [place] 9:[address] [facility] REPOSITORY TYPE CODE TESTS RESULT OUT OF RANGE REFERENCE UNITS LAB L501.4010 <0.045 ng/mL High 0.253 TROPONIN-I Result Comment: TROPONIN-I EXPECTED VALUES <0.045 Negative 0.045 - 0.590 Consistent with Cardiac Damage > OR = 0.600 Critical Value Not every elevated troponin is indicative of PR. These values should be used with clinical judgement in examining the patient's clinical picture for diagnosis. To establish a diagnosis of PR versus myocardial injury, there must be a demonstrated rise and/or fall in the troponin values, in addition to ischemic symptoms, EKG changes, new regional wall motion abnormality, and/or angiographical evidence. PLEASE NOTE: REFERENCE RANGES EDITED 18 Performed By: #### L500.2500, L500.3400, L501.2300, L501.4010, L501.5200 #### [facility] [address] [place], [place], [address] MAGNESIUM Collected: 09/20/2018 Status: F Source: [place] 9:[address] [facility] REPOSITORY TYPE CODE TESTS RESULT OUT OF RANGE REFERENCE UNITS LAB L501.5200 1.6-2.6 mg/dL Normal MG 1.9 Performed By: #### L500.2500, L500.3400, L501.2300, L501.4010, L501.5200 #### [facility] [address] [place], [address] CHEST 1 VIEW Observed: 09/20/2018 Status: F Source: [place] (PORTABLE) 9:[address] [facility] REPOSITORY [facility] Imaging Services [address] [place] [address] Chest 1 View (Portable) MR#: [id number] Acct: [id number] Name: DIONY CARRILLO Rep #: [id number] : 1965 F 53 From: Arben Richards DO PCP: Alessandro Eric MD Status: REG ER Study: Chest 1 View (Portable) Date of Exam: 09/20/18 Exam# [id number] Ordering Dr: Lexie Savage MD STUDY: X-RAY CHEST REASON FOR EXAM: Female, 53 years old. Elevated blood sugar. Does chest pain. Patient states chest pain could be related to anxiety. TECHNIQUE: Single AP portable view of the chest. COMPARISON: May 10, 2018. FINDINGS: Telemetry wires overlie the chest. There is a slightly decreased inspiratory effort when compared to prior study. There is no new mass or infiltrate. There is no demonstrated pleural abnormality. Normal size heart. Normal mediastinum and elvie. Normal visualized pulmonary arteries. Normal visualized aortic arch and descending thoracic aorta. No visualized osseous changes. There is no demonstrated abnormality of the visualized soft tissue structures of the upper abdomen. RAD/Chest 1 View (Portable) IMPRESSION: Decreased inspiratory effort without acute cardiopulmonary disease or major interval change. Electronically Signed: Arben Richards DO at 22:04 EST Tel [phone], Service support , CC: Lexie Savage MD; Alessandro Eric MD Mobile Lounge Driver Or Operator: Signed BEDSIDE GLUCOSE Collected: 09/20/2018 Status: F Source: [place] 9:[address] [facility] REPOSITORY TYPE CODE TESTS RESULT OUT OF REFERENCE UNITS RANGE LAB L501.080 70-110 mg/dL High alert BEDSIDE GLU > 500 Result Comment: Dr Ponce Followed MANAGEMENT OF PATIENT CARE PER NURSING PROTOCOL Performed By: #### L501.080 #### [facility] Point of Care [address] [place] [address] PROGRESS Observed: 09/19/2018 Status: COMPLETED Source: [place] 2:29 PM [facility] REPOSITORY O ID: [id number] Author: Sendy Allen Service: (none) Author Type: Physician Type: Progress Notes Filed: 09/19/2018 2:34 PM Note Text: Follow up podiatric office visit for: Chief Complaint: This 53 year old who presents for follow up:left foot ulceration and callus of right foot Patient presents wearing regular sneakers on right foot and slippers with wound vac on left foot Patient denies any pain to b/l feet. Patient denies n/v/f/c. Patient has no other complaints. PAIN EVALUATION No data found. Hemoglobin A1C Date Value Ref Range Status 08/30/2018 11.7 (H) 4.3 - 5.6 % Final Comment: [place] [employer] guidelines indicate that patients with HgbA1c in the range 5.7-6.4% are at increased risk for development of diabetes, and intervention by lifestyle modification may be beneficial. HgbA1c greater or equal to 6.5% is considered diagnostic of diabetes. PCP: Alessandro Eric MD PAST MEDICAL HISTORY Diagnosis Date - Chronic depressive personality disorder - Degenerative disc disease - Diabetes mellitus without mention of complication Diabetes mellitus - Fallen arches (Broken) on both sides - Polyneuropathy in diabetes(357.2) - Restless legs syndrome (RLS) Current Outpatient Prescriptions: acetaminophen (TYLENOL) 325 mg tablet Take 2 tablets by mouth every 6 hours as needed. ascorbic acid, vitamin C, (VITAMIN C) 500 mg tablet Take 1 tablet by mouth twice daily. Take with iron (ferrous sulfate). blood sugar diagnostic (ACCU-CHEK MEGAN PLUS TEST STRP) test strip Check blood sugar readings 2-3 times daily and as needed. Insulin dependent. Dx: E11.40 blood sugar diagnostic (ACCU-CHEK MEGAN) test strip Test blood sugar(s) 3-4 times daily. Dx: Type 1 DM - Uncontrolled E 10.65 Insulin: Yes blood sugar diagnostic (CONTOUR NEXT TEST STRIPS) test strip Use as instructed. Tests blood sugars 3 to 4 times a day. E10.65; Insulin: yes. Blood-Glucose Meter (ACCU-CHEK MEGAN CONNECT METER) misc 1 Units as directed. Dx: E11.40 Blood-Glucose Meter (BLOOD GLUCOSE MONITORING) monitoring kit 1 Each as needed. carboxymethylcellulose sodium (CELLUVISC) 1 % dlgl Use 1 Drop in both eyes four times daily. docusate sodium (COLACE) 100 mg capsule Take 1 capsule by mouth twice daily as needed for Constipation. ergocalciferol, vitamin D2, (DRISDOL) 50,000 unit capsule Take 1 capsule by mouth once each week. insulin aspart U-100 (NOVOLOG FLEXPEN U-100 INSULIN) 100 unit/mL inpn Inject 20 Units subcutaneously three times daily with meals. insulin glargine (LANTUS SOLOSTAR U-100 INSULIN) 100 unit/mL (3 mL) inpn Inject 30 units subcutaneously in the AM and 35 units in the PM insulin needles, DISPOSABLE, (PEN NEEDLE) 31 gauge x 5/16 ndle Use as directed four times daily Lancets (ACCU-CHEK MULTICLIX LANCET) lancets Check blood sugar readings 2-3 times daily. Insulin dependent. Dx: E11.40 Lancets lancets Test 2-3 times a day magnesium oxide (MAG-OX) 400 mg tablet Take 1 tablet by mouth twice daily. omeprazole (PRILOSEC) 20 mg capsule Take 1 capsule by mouth daily before breakfast. 1/2 hr before meal. oxyCODONE IR (ROXICODONE) 5 mg immediate release tablet Take 1 tablet by mouth every 8 hours as needed. promethazine (PHENERGAN) 25 mg tablet Take 1 tablet by mouth every 6 hours as needed. psyllium (KONSYL) packet Take 1 Packet by mouth once daily. rOPINIRole Hydrochloride 3 mg tablet Take 1 tablet by mouth twice daily. rosuvastatin (CRESTOR) 40 mg tablet Take 1 tablet by mouth once daily. simethicone, chewable (MYLICON) 80 mg chewable tablet Take 1 tablet by mouth four times daily as needed (GI upset). gabapentin (NEURONTIN) 800 mg tablet Take 1 tablet by mouth three times daily for 30 days. lactobacillus rhamnosus (CULTURELLE) 10 billion cell capsule Take 1 capsule by mouth once daily for 7 days. No current facility-administered medications for this visit. ALLERGIES Allergen Reactions - Oxycontin [Oxycodon* itch - Penicillins Hives - Requip [Ropinirole] Intolerance Vomiting, panic attacks, itching PAST SURGICAL HISTORY Procedure Laterality Date - DELIVERY ONLY , low cervical - EGD W/O OR W/BRUSH/WASH 05/10/2012 EGD - LIGATE FALLOPIAN TUBE Tubal ligation - PAST SURGICAL HISTORY OF removal right 5th metatarsal - PICC LINE INSERT/CONSULT 06/14/2014 - REPAIR ROTATOR CUFF,ACUTE 1996 Rotator cuf repair right, Dr Alvarado - [facility] N/CARPAL TUNNEL SURG 1996 Carpal tunnel decomp, right, Dr Alvarado - [facility] N/CARPAL TUNNEL SURG 2009 Carpal tunnel decomp, LEFT REVIEW OF SYSTEMS: CONSTITUTIONAL: No fevers, chills, nightsweats, unintended weight loss HEENT: Denies frequent or severe heaches, nasal congestion/sinus symptoms, problematic allergy problems. EYES: No diplopia or blurry vision. CARDIOVASCULAR: No chest pain, dyspnea, palpitations, orthopnea, PND, ankle edema. PULM: No dyspnea, unexplained cough. GI: No dysphagia/odynophagia, problematic reflux, constipation, diarrhea, changes in stool habits, hematochezia, melena. : No new urinary complaints, including dysuria, gross hematuria or pyuria. NEURO: No new balance problems, peripheral weakness/paresthesias or numbness of concern. MUSC-SKEL: No new joint pain, swelling, or erythema. PSY: No concerns regarding depression, anxiety or panic. INTEGUMENTARY: Ulceration of left foot Physical Exam: Constitutional: Pt is a well developed 53 year old female who is alert, oriented, cooperative and in no apparent distress. OBJECTIVE: NVSI unchanged from previous visit. Dermatological: Ulceration to left foot is 100% granular with no exposed tendon, capsule or bone. There is mild periwound maceration. No signs of infection are present to left foot ulceration. No other ulceration present to the left foot. Ulceration of left foot measures 3.1 x 2.0 x 0.1 cm. Right foot has healed callus. There is dryness to b/l feet Musculoskeletal/Orthopaedic: Patient has no pain to palpation of b/l feet ASSESSMENT: (E11.621, L97.422) Diabetic ulcer of left midfoot associated with type 2 diabetes mellitus, with fat layer exposed (HCC) (primary encounter diagnosis) (E11.49) Other diabetic neurological complication associated with type 2 diabetes mellitus (HCC) PLAN: 1. History and physical examination completed today. 2. Patient ulceration of left foot has improved significantly. There is maceration of left foot. Will hold wound vac x 1 week. Will apply vanessa to left foot ulceration. Will run insurance for epifix. I believe epifix will help to heal this ulceration. Patient did wear slippers on left foot. She is not following direction set forth, that is to wear boot with peg assisted offloading. Patient needs to be compliant with boot on left foot 3. Right foot remains healed. Recommend lotion to feet daily. She can wear diabetic shoes on right foot 4. F/u in 1 week for possible epifix is approved. Sendy Allen DPM CNOV Observed: 09/19/2018 Status: COMPLETED Source: [place] 1:10 PM [facility] REPOSITORY Office Visit (PODIWS) DIONY CARRILLO ([id number]) 1965 F Date Time Provider Department 09/19/18 1:10 PM SENDY ALLEN PODIWS During your visit today, we recorded the following information about you: Cecy Carbajal RN 09/19/2018 2:34 PM Signed AMB ROOMING INTAKE FLOWSHEET DATA Risk Screening Do you have concerns about personal safety or safety in the home?: No Patient presents for follow up of L lateral foot ulcer. Wound vac removed. Skin surrounding ulcer appears macerated. Foul odor noted. Bleeding noted. Pt states home health nurses left wound vac on for 4 days and it was just changed yesterday. She denies n/v/f/c. Cecy Carbajal RN 09/19/2018 1:35 PM Addendum Hold wound vac for 1 week. Apply Vanessa daily to ulcer of L foot. Continue boot Sendy Allen DPM 09/19/2018 2:34 PM Signed Follow up podiatric office visit for: Chief Complaint: This 53 year old who presents for follow up:left foot ulceration and callus of right foot Patient presents wearing regular sneakers on right foot and slippers with wound vac on left foot Patient denies any pain to b/l feet. Patient denies n/v/f/c. Patient has no other complaints. PAIN EVALUATION No data found. Hemoglobin A1C Date Value Ref Range Status 08/30/2018 11.7 (H) 4.3 - 5.6 % Final Comment: [place] Diabetes [employer] guidelines indicate that patients with HgbA1c in the range 5.7-6.4% are at increased risk for development of diabetes, and intervention by lifestyle modification may be beneficial. HgbA1c greater or equal to 6.5% is considered diagnostic of diabetes. PCP: Alessandro Eric MD PAST MEDICAL HISTORY Diagnosis Date - Chronic depressive personality disorder - Degenerative disc disease - Diabetes mellitus without mention of complication Diabetes mellitus - Fallen arches (Broken) on both sides - Polyneuropathy in diabetes(357.2) - Restless legs syndrome (RLS) Current Outpatient Prescriptions: acetaminophen (TYLENOL) 325 mg tablet Take 2 tablets by mouth every 6 hours as needed. ascorbic acid, vitamin C, (VITAMIN C) 500 mg tablet Take 1 tablet by mouth twice daily. Take with iron (ferrous sulfate). blood sugar diagnostic (ACCU-CHEK MEGAN PLUS TEST STRP) test strip Check blood sugar readings 2-3 times daily and as needed. Insulin dependent. Dx: E11.40 blood sugar diagnostic (ACCU-CHEK MEGAN) test strip Test blood sugar(s) 3-4 times daily. Dx: Type 1 DM - Uncontrolled E 10.65 Insulin: Yes blood sugar diagnostic (CONTOUR NEXT TEST STRIPS) test strip Use as instructed. Tests blood sugars 3 to 4 times a day. E10.65; Insulin: yes. Blood-Glucose Meter (ACCU-CHEK MEGAN CONNECT METER) misc 1 Units as directed. Dx: E11.40 Blood-Glucose Meter (BLOOD GLUCOSE MONITORING) monitoring kit 1 Each as needed. carboxymethylcellulose sodium (CELLUVISC) 1 % dlgl Use 1 Drop in both eyes four times daily. docusate sodium (COLACE) 100 mg capsule Take 1 capsule by mouth twice daily as needed for Constipation. ergocalciferol, vitamin D2, (DRISDOL) 50,000 unit capsule Take 1 capsule by mouth once each week. insulin aspart U-100 (NOVOLOG FLEXPEN U-100 INSULIN) 100 unit/mL inpn Inject 20 Units subcutaneously three times daily with meals. insulin glargine (LANTUS SOLOSTAR U-100 INSULIN) 100 unit/mL (3 mL) inpn Inject 30 units subcutaneously in the AM and 35 units in the PM insulin needles, DISPOSABLE, (PEN NEEDLE) 31 gauge x 5/16 ndle Use as directed four times daily Lancets (ACCU-CHEK MULTICLIX LANCET) lancets Check blood sugar readings 2-3 times daily. Insulin dependent. Dx: E11.40 Lancets lancets Test 2-3 times a day magnesium oxide (MAG-OX) 400 mg tablet Take 1 tablet by mouth twice daily. omeprazole (PRILOSEC) 20 mg capsule Take 1 capsule by mouth daily before breakfast. 1/2 hr before meal. oxyCODONE IR (ROXICODONE) 5 mg immediate release tablet Take 1 tablet by mouth every 8 hours as needed. promethazine (PHENERGAN) 25 mg tablet Take 1 tablet by mouth every 6 hours as needed. psyllium (KONSYL) packet Take 1 Packet by mouth once daily. rOPINIRole Hydrochloride 3 mg tablet Take 1 tablet by mouth twice daily. rosuvastatin (CRESTOR) 40 mg tablet Take 1 tablet by mouth once daily. simethicone, chewable (MYLICON) 80 mg chewable tablet Take 1 tablet by mouth four times daily as needed (GI upset). gabapentin (NEURONTIN) 800 mg tablet Take 1 tablet by mouth three times daily for 30 days. lactobacillus rhamnosus (CULTURELLE) 10 billion cell capsule Take 1 capsule by mouth once daily for 7 days. No current facility-administered medications for this visit. ALLERGIES Allergen Reactions - Oxycontin [Oxycodon* itch - Penicillins Hives - Requip [Ropinirole] Intolerance Vomiting, panic attacks, itching PAST SURGICAL HISTORY Procedure Laterality Date - DELIVERY ONLY , low cervical - EGD W/O OR W/BRUSH/WASH 05/10/2012 EGD - LIGATE FALLOPIAN TUBE Tubal ligation - PAST SURGICAL HISTORY OF removal right 5th metatarsal - PICC LINE INSERT/CONSULT 06/14/2014 - REPAIR ROTATOR CUFF,ACUTE 1996 Rotator cuf repair right, Dr Alvarado - [facility] N/CARPAL TUNNEL SURG 1996 Carpal tunnel decomp, right, Dr Alvarado - [facility] N/CARPAL TUNNEL SURG 2009 Carpal tunnel decomp, LEFT REVIEW OF SYSTEMS: CONSTITUTIONAL: No fevers, chills, nightsweats, unintended weight loss HEENT: Denies frequent or severe heaches, nasal congestion/sinus symptoms, problematic allergy problems. EYES: No diplopia or blurry vision. CARDIOVASCULAR: No chest pain, dyspnea, palpitations, orthopnea, PND, ankle edema. PULM: No dyspnea, unexplained cough. GI: No dysphagia/odynophagia, problematic reflux, constipation, diarrhea, changes in stool habits, hematochezia, melena. : No new urinary complaints, including dysuria, gross hematuria or pyuria. NEURO: No new balance problems, peripheral weakness/paresthesias or numbness of concern. MUSC-SKEL: No new joint pain, swelling, or erythema. PSY: No concerns regarding depression, anxiety or panic. INTEGUMENTARY: Ulceration of left foot Physical Exam: Constitutional: Pt is a well developed 53 year old female who is alert, oriented, cooperative and in no apparent distress. OBJECTIVE: NVSI unchanged from previous visit. Dermatological: Ulceration to left foot is 100% granular with no exposed tendon, capsule or bone. There is mild periwound maceration. No signs of infection are present to left foot ulceration. No other ulceration present to the left foot. Ulceration of left foot measures 3.1 x 2.0 x 0.1 cm. Right foot has healed callus. There is dryness to b/l feet Musculoskeletal/Orthopaedic: Patient has no pain to palpation of b/l feet ASSESSMENT: (E11.621, L97.422) Diabetic ulcer of left midfoot associated with type 2 diabetes mellitus, with fat layer exposed (HCC) (primary encounter diagnosis) (E11.49) Other diabetic neurological complication associated with type 2 diabetes mellitus (HCC) PLAN: 1. History and physical examination completed today. 2. Patient ulceration of left foot has improved significantly. There is maceration of left foot. Will hold wound vac x 1 week. Will apply vanessa to left foot ulceration. Will run insurance for epifix. I believe epifix will help to heal this ulceration. Patient did wear slippers on left foot. She is not following direction set forth, that is to wear boot with peg assisted offloading. Patient needs to be compliant with boot on left foot 3. Right foot remains healed. Recommend lotion to feet daily. She can wear diabetic shoes on right foot 4. F/u in 1 week for possible epifix is approved. Sendy Allen DPM Referring Provider: SENDY ALLEN [[id number]] Allergies As of Date: 09/19/2018 Noted Allergy Reaction OXYCONTIN (OXYCODONE HCL) 09/27/2007 Comments: itch PENICILLINS 06/02/2007 4 - Hives REQUIP (ROPINIROLE) 11/18/2015 5 - Intolerance Comments: Vomiting, panic attacks, itching Date Reviewed: 09/19/2018 Reviewed by: Cecy Carbajal RN - Fully Assessed Reason for Visit: Follow Up [171] Primary Visit Diagnosis:Diabetic ulcer of left midfoot associated with type 2 diabetes mellitus, with fat layer exposed (HCC) [E11.621, L97.422] Other Visit Diagnosis:Other diabetic neurological complication associated with type 2 diabetes mellitus (HCC) [E11.49] Prescriptions as of 09/19/2018 Sig: ACETAMINOPHEN 325 MG TABLET Take 2 tablets by mouth every* ASCORBIC ACID (VITAMIN C) 500* Take 1 tablet by mouth twice * BLOOD SUGAR DIAGNOSTIC STRIPS Check blood sugar readings 2-* BLOOD SUGAR DIAGNOSTIC STRIPS Test blood sugar(s) 3- 4 times* BLOOD SUGAR DIAGNOSTIC STRIPS Use as instructed. Tests bloo* BLOOD-GLUCOSE METER 1 Units as directed. Dx: E11.* BLOOD-GLUCOSE METER KIT 1 Each as needed. CARBOXYMETHYLCELLULOSE SODIUM* Use 1 Drop in both eyes four * DOCUSATE SODIUM 100 MG CAPSULE Take 1 capsule by mouth twice* ERGOCALCIFEROL (VITAMIN D2) 5* Take 1 capsule by mouth once * INSULIN ASPART U-100 100 UNI* Inject 20 Units subcutaneousl* INSULIN GLARGINE (U-100) 100 * Inject 30 units subcutaneousl* PEN NEEDLE, DIABETIC 31 GAUGE* Use as directed four times da* LANCETS Check blood sugar readings 2-* LANCETS Test 2-3 times a day MAGNESIUM OXIDE 400 MG (241.3* Take 1 tablet by mouth twice * OMEPRAZOLE 20 MG CAPSULE,RJ* Take 1 capsule by mouth daily* OXYCODONE 5 MG TABLET Take 1 tablet by mouth every * PROMETHAZINE 25 MG TABLET Take 1 tablet by mouth every * PSYLLIUM ORAL PACKET Take 1 Packet by mouth once d* ROPINIROLE 3 MG TABLET Take 1 tablet by mouth twice * ROSUVASTATIN 40 MG TABLET Take 1 tablet by mouth once d* SIMETHICONE 80 MG CHEWABLE TA* Take 1 tablet by mouth four t* GABAPENTIN 800 MG TABLET Take 1 tablet by mouth three * LACTOBACILLUS RHAMNOSUS GG 10* Take 1 capsule by mouth once * Problem List As Of Date 09/19/2018 Noted Resolved Reaction, adjustment, with depressed mood, prol*INVALID FOR* More... Diabetic polyneuropathy associated with type 2 *INVALID FOR* More... Restless legs syndrome (RLS) [G25.81] INVALID FOR* More... 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 Osteomyelitis (HCC) [M86.9] INVALID FOR* More... Clostridium difficile infection [B96.89] INVALID FOR* More... Urinary hesitancy [R39.11] INVALID FOR*05/30/2015 More... SUMMARY INVALID FOR* More... Urinary hesitancy [R39.11] INVALID FOR*06/04/2015 More... RLS (restless legs syndrome) [G25.81] INVALID FOR* More... Anxiety neurosis [F41.1] INVALID FOR* More... Positive urine drug screen [R82.5] INVALID FOR* More... Charcot foot due to diabetes mellitus (HCC) [E1*INVALID FOR* Wound infection [T14.8XXA, L08.9] INVALID FOR* More... Hyperlipidemia [E78.5] INVALID FOR* More... Blurry vision [H53.8] INVALID FOR* More... Diarrhea [R19.7] INVALID FOR*09/05/2018 More... Obesity, Class I, BMI 30-34.9 [E66.9] INVALID FOR* Other instructions from your clinician: Hold wound vac for 1 week. Apply Vanessa daily to ulcer of L foot. Continue boot Encounter Status:Closed by SENDY ALLEN DPM on 09/19/18 PROGRESS Observed: 09/19/2018 Status: COMPLETED Source: [place] 1:04 PM [facility] REPOSITORY HNO ID: [id number] Author: Cecy Carbajal RN Service: (none) Author Type: (none) Type: Progress Notes Filed: 09/19/2018 2:34 PM Note Text: AMB ROOMING INTAKE FLOWSHEET DATA Risk Screening Do you have concerns about personal safety or safety in the home?: No Patient presents for follow up of L lateral foot ulcer. Wound vac removed. Skin surrounding ulcer appears macerated. Foul odor noted. Bleeding noted. Pt states home health nurses left wound vac on for 4 days and it was just changed yesterday. She denies n/v/f/c. PROGRESS Observed: 09/12/2018 Status: COMPLETED Source: [place] 2:10 PM [facility] REPOSITORY HNO ID: [id number] Author: Alvina SelfRt) Lilian Galeana Service: (none) Author Type: Ground Crew Chief Type: Progress Notes Filed: 09/12/2018 2:10 PM Note Text: Radiology Service Progress Note PATIENT NAME: Diony Carrillo DATE OF SERVICE: September 12, 2018 TIME: 2:10 PM PATIENT IDENTITY VERIFICATION COMPLETED USING TWO (2) METHODS: Patient confirmed name verbally and Date of . PATIENT GENDER DATA: Female. status: : No status: NO. PATIENT RELEVANT IMPLANT DATA REVIEWED: Not Applicable RADIOLOGY DEPARTMENT: General X-ray: Exam(s) Completed: Lower Extremity X-Ray(s): Feet, Bilateral: PERIPHERAL IV DATA: Not applicable SIGNED BY: RT Juhi September 12, 2018 2:10 PM XR FOOT 3V AP/LAT/OBL Observed: 09/12/2018 Status: F Source: [place] 2:09 PM [facility] [place] REPOSITORY * * *Final Report* * * DATE OF EXAM: Sep 12 2018 2:09PM EDGAR [id number] - XR FOOT 3V AP/LAT/OBL GABRIELA / PROCEDURE REASON: multiple diagnoses * * * * Physician Interpretation * * * * HISTORY: 53-YEAR-OLD FEMALE WITH Diabetic ulcer of right midfoot associated with type 2 diabetes mellitus, with fat layer exposed (HCC) Diabetic ulcer of right midfoot associated with type 2 diabetes mellitus, with fat layer exposed (HCC) Diabetic ulcer of left midfoot associated with type 2 diabetes mellitus, with fat layer exposed (HCC) Diabetic ulcer of left midfoot associated with type 2 diabetes mellitus, with fat layer e.... follow up to open wound on the planter surface of the left foot (BB hubbard area of interest). TECHNIQUE: XR FOOT 3V AP/LAT/OBL GABRIELA Laterality: BILATERAL Number of different views (projections): 3- each COMPARISON: RESULT: Right foot: Status post amputation of the fifth ray from the level of the proximal metaphysis of the fifth metatarsal. Mild hallux valgus. Narrowing of second through fifth tarsometatarsal joints with radiolucency with a fragment of bone dorsally seen on lateral view the second tarsometatarsal joint most likely consistent with a fracture. No periosteal reaction or other evidence of osteomyelitis at this time. Left foot: Status post amputation of the left fifth Ray from level of proximal metaphysis of the metatarsal. A Beekley was placed in the area of concern. No evidence of osteomyelitis at this time. IMPRESSION: STATUS POST BILATERAL FIFTH METATARSAL TARSAL AMPUTATION. MIDFOOT DEGENERATIVE CHANGES OF THE RIGHT WITH FRAGMENTATION CONSISTENT WITH NEUROPATHIC JOINT. NO DEFINITE RADIOGRAPHIC EVIDENCE OF OSTEOMYELITIS AND NO CHANGE COMPARED TO PREVIOUS EXAM. Mobile Lounge Driver Or Operator: PSCB Transcribe Date/Time: Sep 13 2018 2:44P Dictated by : AMBROSIO IVEY MD This examination was interpreted and the report reviewed and electronically signed by: AMBROSIO IVEY MD on Sep 13 2018 2:50PM EST [id number] PROGRESS Observed: 09/12/2018 Status: COMPLETED Source: [place] 2:08 PM [facility] REPOSITORY HNO ID: [id number] Author: Cecy Carbajal RN Service: (none) Author Type: (none) Type: Progress Notes Filed: 09/12/2018 2:08 PM Note Text: Wet to dry dressing placed on L foot. Secured with alison and MYLA. PROGRESS Observed: 09/12/2018 Status: COMPLETED Source: [place] 1:08 PM [facility] REPOSITORY HNO ID: [id number] Author: Sendy Allen Service: (none) Author Type: Physician Type: Progress Notes Filed: 09/12/2018 1:56 PM Note Text: Follow up podiatric office visit for: Chief Complaint: This 53 year old who presents for follow up:b/l foot ulceration Patient is using wound vac to left foot. She denies n/v/f/c. She has completed antibiotic Patient has been wearing diabetic shoes on right foot as the ulceration has healed. She states she has been applying lotion to right foot bid. She states her pain is on/off. She has no other complaints. PAIN EVALUATION 09/12/2018 Pain Score: 8 Pain Location: Foot-Left Duration Amount of Time: 3 Duration Units: Weeks Frequency: Intermittent Intervention: Relaxation;Medication Hemoglobin A1C Date Value Ref Range Status 08/30/2018 11.7 (H) 4.3 - 5.6 % Final Comment: [place] [employer] guidelines indicate that patients with HgbA1c in the range 5.7-6.4% are at increased risk for development of diabetes, and intervention by lifestyle modification may be beneficial. HgbA1c greater or equal to 6.5% is considered diagnostic of diabetes. PCP: Alessandro Eric MD PAST MEDICAL HISTORY Diagnosis Date - Chronic depressive personality disorder - Degenerative disc disease - Diabetes mellitus without mention of complication Diabetes mellitus - Fallen arches (Broken) on both sides - Polyneuropathy in diabetes(357.2) - Restless legs syndrome (RLS) Current Outpatient Prescriptions: rOPINIRole Hydrochloride 3 mg tablet Take 1 tablet by mouth twice daily. blood sugar diagnostic (CONTOUR NEXT TEST STRIPS) test strip Use as instructed. Tests blood sugars 3 to 4 times a day. E10.65; Insulin: yes. acetaminophen (TYLENOL) 325 mg tablet Take 2 tablets by mouth every 6 hours as needed. carboxymethylcellulose sodium (CELLUVISC) 1 % dlgl Use 1 Drop in both eyes four times daily. docusate sodium (COLACE) 100 mg capsule Take 1 capsule by mouth twice daily as needed for Constipation. insulin glargine (LANTUS SOLOSTAR U-100 INSULIN) 100 unit/mL (3 mL) inpn Inject 30 units subcutaneously in the AM and 35 units in the PM insulin aspart U-100 (NOVOLOG FLEXPEN U-100 INSULIN) 100 unit/mL inpn Inject 20 Units subcutaneously three times daily with meals. lactobacillus rhamnosus (CULTURELLE) 10 billion cell capsule Take 1 capsule by mouth once daily for 7 days. simethicone, chewable (MYLICON) 80 mg chewable tablet Take 1 tablet by mouth four times daily as needed (GI upset). oxyCODONE IR (ROXICODONE) 5 mg immediate release tablet Take 1 tablet by mouth every 8 hours as needed. psyllium (KONSYL) packet Take 1 Packet by mouth once daily. promethazine (PHENERGAN) 25 mg tablet Take 1 tablet by mouth every 6 hours as needed. Blood-Glucose Meter (ACCU-CHEK MEGAN CONNECT METER) misc 1 Units as directed. Dx: E11.40 magnesium oxide (MAG-OX) 400 mg tablet Take 1 tablet by mouth twice daily. omeprazole (PRILOSEC) 20 mg capsule Take 1 capsule by mouth daily before breakfast. 1/2 hr before meal. rosuvastatin (CRESTOR) 40 mg tablet Take 1 tablet by mouth once daily. insulin needles, DISPOSABLE, (PEN NEEDLE) 31 gauge x 5/16 ndle Use as directed four times daily ergocalciferol, vitamin D2, (DRISDOL) 50,000 unit capsule Take 1 capsule by mouth once each week. ascorbic acid, vitamin C, (VITAMIN C) 500 mg tablet Take 1 tablet by mouth twice daily. Take with iron (ferrous sulfate). blood sugar diagnostic (ACCU-CHEK MEGAN) test strip Test blood sugar(s) 3-4 times daily. Dx: Type 1 DM - Uncontrolled E 10.65 Insulin: Yes blood sugar diagnostic (ACCU-CHEK MEGAN PLUS TEST STRP) test strip Check blood sugar readings 2-3 times daily and as needed. Insulin dependent. Dx: E11.40 Lancets (ACCU-CHEK MULTICLIX LANCET) lancets Check blood sugar readings 2-3 times daily. Insulin dependent. Dx: E11.40 Blood-Glucose Meter (BLOOD GLUCOSE MONITORING) monitoring kit 1 Each as needed. Lancets lancets Test 2-3 times a day gabapentin (NEURONTIN) 800 mg tablet Take 1 tablet by mouth three times daily for 30 days. No current facility-administered medications for this visit. ALLERGIES Allergen Reactions - Oxycontin [Oxycodon* itch - Penicillins Hives - Requip [Ropinirole] Intolerance Vomiting, panic attacks, itching PAST SURGICAL HISTORY Procedure Laterality Date - DELIVERY ONLY , low cervical - EGD W/O OR W/BRUSH/WASH 05/10/2012 EGD - LIGATE FALLOPIAN TUBE Tubal ligation - PAST SURGICAL HISTORY OF removal right 5th metatarsal - PICC LINE INSERT/CONSULT 06/14/2014 - REPAIR ROTATOR CUFF,ACUTE 1996 Rotator cuf repair right, Dr Alvarado - [facility] N/CARPAL TUNNEL SURG 1996 Carpal tunnel decomp, right, Dr Alvarado - [facility] MEDIAN N/CARPAL TUNNEL SURG 2008 Carpal tunnel decomp, LEFT REVIEW OF SYSTEMS: CONSTITUTIONAL: No fevers, chills, nightsweats, unintended weight loss HEENT: Denies frequent or severe heaches, nasal congestion/sinus symptoms, problematic allergy problems. EYES: No diplopia or blurry vision. CARDIOVASCULAR: No chest pain, dyspnea, palpitations, orthopnea, PND, ankle edema. PULM: No dyspnea, unexplained cough. GI: No dysphagia/odynophagia, problematic reflux, constipation, diarrhea, changes in stool habits, hematochezia, melena. : No new urinary complaints, including dysuria, gross hematuria or pyuria. NEURO: No new balance problems, peripheral weakness/paresthesias or numbness of concern. MUSC-SKEL: No new joint pain, swelling, or erythema. PSY: No concerns regarding depression, anxiety or panic. INTEGUMENTARY: Ulceration present to b/l feet Physical Exam: Constitutional: Pt is a well developed 53 year old female who is alert, oriented, cooperative and in no apparent distress. OBJECTIVE: NVSI unchanged from previous visit. Dermatological: The plantar aspect of left foot has full thickness ulceration that is 3.5 cm x 2.0 cm x 0.3 cm. There is no exposed tendo, capsule or bone. There is no drainage or signs of infection. Right foot is dry. Past ulceration appears healed with mild callus . There is callus to right hallux and right lateral foot. No signs of infection was noted. Musculoskeletal/Orthopaedic: Patient has no pain to palpation of b/l feet ASSESSMENT: (E11.621, L97.412) Diabetic ulcer of right midfoot associated with type 2 diabetes mellitus, with fat layer exposed (HCC) (primary encounter diagnosis) (E11.621, L97.422) Diabetic ulcer of left midfoot associated with type 2 diabetes mellitus, with fat layer exposed (HCC) PLAN: 1. History and physical examination completed today. 2. Left foot ulceration is stable. Continue with wound vac at 125 mm hg continuous with changes mwf. 3. Will plan for skin substitute once wound is appropriate to do so. 4. Right foot ulceration is healed. There is small callus to right hallux and lateral arch. This was debrided today with sanding disk. 5. Continue with lotion to feet daily. 6. She is ok to wear her diabetic shoes on right foot. 7. F/u in 1 week BRITTANIE StarkOV Observed: 09/12/2018 Status: COMPLETED Source: [place] 12:55 PM [facility] REPOSITORY Office Visit (PODIWS) DIONY CARRILLO ([id number]) 1965 F Date Time Provider Department 09/12/18 12:55 PM SENDY ALLEN PODIWS During your visit today, we recorded the following information about you: Cecy Carbajal RN 09/12/2018 1:56 PM Signed AMB ROOMING INTAKE FLOWSHEET DATA Risk Screening Do you have concerns about personal safety or safety in the home?: No Pain Pain Score: 8/10 Pain Location: Foot-Left Duration Amount of Time: 3 Duration Units: Weeks Frequency: Intermittent Intervention: Relaxation, Medication Patient is here to follow up from the hospital. She was discharged from [facility] two days ago. She states she has home health through [facility] coming to her house for wound vac changes and therapy. She c/o intermittent pain to L foot that is relieved with rest and pain medication that was prescribed from [facility]. She admits to nausea and states she vomitted yesterday. She states she can't eat anything, everything makes her feel sick. Denies any fever. Senyd Allen, BRITTANIE 09/12/2018 1:56 PM Signed Follow up podiatric office visit for: Chief Complaint: This 53 year old who presents for follow up:b/l foot ulceration Patient is using wound vac to left foot. She denies n/v/f/c. She has completed antibiotic Patient has been wearing diabetic shoes on right foot as the ulceration has healed. She states she has been applying lotion to right foot bid. She states her pain is on/off. She has no other complaints. PAIN EVALUATION 09/12/2018 Pain Score: 8 Pain Location: Foot-Left Duration Amount of Time: 3 Duration Units: Weeks Frequency: Intermittent Intervention: Relaxation;Medication Hemoglobin A1C Date Value Ref Range Status 08/30/2018 11.7 (H) 4.3 - 5.6 % Final Comment: [place] Diabetes [employer] guidelines indicate that patients with HgbA1c in the range 5.7-6.4% are at increased risk for development of diabetes, and intervention by lifestyle modification may be beneficial. HgbA1c greater or equal to 6.5% is considered diagnostic of diabetes. PCP: Alessandro Eric MD PAST MEDICAL HISTORY Diagnosis Date - Chronic depressive personality disorder - Degenerative disc disease - Diabetes mellitus without mention of complication Diabetes mellitus - Fallen arches (Broken) on both sides - Polyneuropathy in diabetes(357.2) - Restless legs syndrome (RLS) Current Outpatient Prescriptions: rOPINIRole Hydrochloride 3 mg tablet Take 1 tablet by mouth twice daily. blood sugar diagnostic (CONTOUR NEXT TEST STRIPS) test strip Use as instructed. Tests blood sugars 3 to 4 times a day. E10.65; Insulin: yes. acetaminophen (TYLENOL) 325 mg tablet Take 2 tablets by mouth every 6 hours as needed. carboxymethylcellulose sodium (CELLUVISC) 1 % dlgl Use 1 Drop in both eyes four times daily. docusate sodium (COLACE) 100 mg capsule Take 1 capsule by mouth twice daily as needed for Constipation. insulin glargine (LANTUS SOLOSTAR U-100 INSULIN) 100 unit/mL (3 mL) inpn Inject 30 units subcutaneously in the AM and 35 units in the PM insulin aspart U-100 (NOVOLOG FLEXPEN U-100 INSULIN) 100 unit/mL inpn Inject 20 Units subcutaneously three times daily with meals. lactobacillus rhamnosus (CULTURELLE) 10 billion cell capsule Take 1 capsule by mouth once daily for 7 days. simethicone, chewable (MYLICON) 80 mg chewable tablet Take 1 tablet by mouth four times daily as needed (GI upset). oxyCODONE IR (ROXICODONE) 5 mg immediate release tablet Take 1 tablet by mouth every 8 hours as needed. psyllium (KONSYL) packet Take 1 Packet by mouth once daily. promethazine (PHENERGAN) 25 mg tablet Take 1 tablet by mouth every 6 hours as needed. Blood-Glucose Meter (ACCU-CHEK MEGAN CONNECT METER) misc 1 Units as directed. Dx: E11.40 magnesium oxide (MAG-OX) 400 mg tablet Take 1 tablet by mouth twice daily. omeprazole (PRILOSEC) 20 mg capsule Take 1 capsule by mouth daily before breakfast. 1/2 hr before meal. rosuvastatin (CRESTOR) 40 mg tablet Take 1 tablet by mouth once daily. insulin needles, DISPOSABLE, (PEN NEEDLE) 31 gauge x 5/16 ndle Use as directed four times daily ergocalciferol, vitamin D2, (DRISDOL) 50,000 unit capsule Take 1 capsule by mouth once each week. ascorbic acid, vitamin C, (VITAMIN C) 500 mg tablet Take 1 tablet by mouth twice daily. Take with iron (ferrous sulfate). blood sugar diagnostic (ACCU-CHEK MEGAN) test strip Test blood sugar(s) 3-4 times daily. Dx: Type 1 DM - Uncontrolled E 10.65 Insulin: Yes blood sugar diagnostic (ACCU-CHEK MEGAN PLUS TEST STRP) test strip Check blood sugar readings 2-3 times daily and as needed. Insulin dependent. Dx: E11.40 Lancets (ACCU-CHEK MULTICLIX LANCET) lancets Check blood sugar readings 2-3 times daily. Insulin dependent. Dx: E11.40 Blood-Glucose Meter (BLOOD GLUCOSE MONITORING) monitoring kit 1 Each as needed. Lancets lancets Test 2-3 times a day gabapentin (NEURONTIN) 800 mg tablet Take 1 tablet by mouth three times daily for 30 days. No current facility-administered medications for this visit. ALLERGIES Allergen Reactions - Oxycontin [Oxycodon* itch - Penicillins Hives - Requip [Ropinirole] Intolerance Vomiting, panic attacks, itching PAST SURGICAL HISTORY Procedure Laterality Date - DELIVERY ONLY , low cervical - EGD W/O OR W/BRUSH/WASH 05/10/2012 EGD - LIGATE FALLOPIAN TUBE Tubal ligation - PAST SURGICAL HISTORY OF removal right 5th metatarsal - PICC LINE INSERT/CONSULT 06/14/2014 - REPAIR ROTATOR CUFF,ACUTE 1996 Rotator cuf repair right, Dr Alvarado - [facility] N/CARPAL TUNNEL SURG 1996 Carpal tunnel decomp, right, Dr Alvarado - [facility]IAN N/CARPAL TUNNEL SURG 2008 Carpal tunnel decomp, LEFT REVIEW OF SYSTEMS: CONSTITUTIONAL: No fevers, chills, nightsweats, unintended weight loss HEENT: Denies frequent or severe heaches, nasal congestion/sinus symptoms, problematic allergy problems. EYES: No diplopia or blurry vision. CARDIOVASCULAR: No chest pain, dyspnea, palpitations, orthopnea, PND, ankle edema. PULM: No dyspnea, unexplained cough. GI: No dysphagia/odynophagia, problematic reflux, constipation, diarrhea, changes in stool habits, hematochezia, melena. : No new urinary complaints, including dysuria, gross hematuria or pyuria. NEURO: No new balance problems, peripheral weakness/paresthesias or numbness of concern. MUSC-SKEL: No new joint pain, swelling, or erythema. PSY: No concerns regarding depression, anxiety or panic. INTEGUMENTARY: Ulceration present to b/l feet Physical Exam: Constitutional: Pt is a well developed 53 year old female who is alert, oriented, cooperative and in no apparent distress. OBJECTIVE: NVSI unchanged from previous visit. Dermatological: The plantar aspect of left foot has full thickness ulceration that is 3.5 cm x 2.0 cm x 0.3 cm. There is no exposed tendo, capsule or bone. There is no drainage or signs of infection. Right foot is dry. Past ulceration appears healed with mild callus . There is callus to right hallux and right lateral foot. No signs of infection was noted. Musculoskeletal/Orthopaedic: Patient has no pain to palpation of b/l feet ASSESSMENT: (E11.621, L97.412) Diabetic ulcer of right midfoot associated with type 2 diabetes mellitus, with fat layer exposed (HCC) (primary encounter diagnosis) (E11.621, L97.422) Diabetic ulcer of left midfoot associated with type 2 diabetes mellitus, with fat layer exposed (HCC) PLAN: 1. History and physical examination completed today. 2. Left foot ulceration is stable. Continue with wound vac at 125 mm hg continuous with changes mwf. 3. Will plan for skin substitute once wound is appropriate to do so. 4. Right foot ulceration is healed. There is small callus to right hallux and lateral arch. This was debrided today with sanding disk. 5. Continue with lotion to feet daily. 6. She is ok to wear her diabetic shoes on right foot. 7. F/u in 1 week BRITTANIE Stark RN 09/12/2018 2:09 PM Addendum Continue wound vac to L foot 125 mmHg continous pressure. Change MWF. Cecy Carbajal RN 09/12/2018 2:08 PM Signed Wet to dry dressing placed on L foot. Secured with alison and MYLA. Referring Provider: SELF [[id number]] Allergies As of Date: 09/12/2018 Noted Allergy Reaction OXYCONTIN (OXYCODONE HCL) 09/27/2007 Comments: itch PENICILLINS 06/02/2007 4 - Hives REQUIP (ROPINIROLE) 11/18/2015 5 - Intolerance Comments: Vomiting, panic attacks, itching Date Reviewed: 09/12/2018 Reviewed by: Cecy Carbajal RN - Fully Assessed Reason for Visit: Hospital Follow Up [177] Primary Visit Diagnosis:Diabetic ulcer of right midfoot associated with type 2 diabetes mellitus, with fat layer exposed (HCC) [E11.621, L97.412] Other Visit Diagnosis:Diabetic ulcer of left midfoot associated with type 2 diabetes mellitus, with fat layer exposed (HCC) [E11.621, L97.422] Order(s):XR FOOT GENERAL 3V AP/LAT/OBL BILAT [[id number]] Order #: [id number] FUTURE Prescriptions as of 09/12/2018 Sig: ROPINIROLE 3 MG TABLET Take 1 tablet by mouth twice * BLOOD SUGAR DIAGNOSTIC STRIPS Use as instructed. Tests bloo* ACETAMINOPHEN 325 MG TABLET Take 2 tablets by mouth every* CARBOXYMETHYLCELLULOSE SODIUM* Use 1 Drop in both eyes four * DOCUSATE SODIUM 100 MG CAPSULE Take 1 capsule by mouth twice* INSULIN GLARGINE (U-100) 100 * Inject 30 units subcutaneousl* INSULIN ASPART U-100 100 UNI* Inject 20 Units subcutaneousl* LACTOBACILLUS RHAMNOSUS GG 10* Take 1 capsule by mouth once * SIMETHICONE 80 MG CHEWABLE TA* Take 1 tablet by mouth four t* OXYCODONE 5 MG TABLET Take 1 tablet by mouth every * PSYLLIUM ORAL PACKET Take 1 Packet by mouth once d* PROMETHAZINE 25 MG TABLET Take 1 tablet by mouth every * BLOOD-GLUCOSE METER 1 Units as directed. Dx: E11.* MAGNESIUM OXIDE 400 MG (241.3* Take 1 tablet by mouth twice * OMEPRAZOLE 20 MG CAPSULE,JR* Take 1 capsule by mouth daily* ROSUVASTATIN 40 MG TABLET Take 1 tablet by mouth once d* PEN NEEDLE, DIABETIC 31 GAUGE* Use as directed four times da* ERGOCALCIFEROL (VITAMIN D2) 5* Take 1 capsule by mouth once * ASCORBIC ACID (VITAMIN C) 500* Take 1 tablet by mouth twice * BLOOD SUGAR DIAGNOSTIC STRIPS Test blood sugar(s) 3- 4 times* BLOOD SUGAR DIAGNOSTIC STRIPS Check blood sugar readings 2-* LANCETS Check blood sugar readings 2-* BLOOD-GLUCOSE METER KIT 1 Each as needed. LANCETS Test 2-3 times a day GABAPENTIN 800 MG TABLET Take 1 tablet by mouth three * Problem List As Of Date 09/12/2018 Noted Resolved Reaction, adjustment, with depressed mood, prol*INVALID FOR* More... Diabetic polyneuropathy associated with type 2 *INVALID FOR* More... Restless legs syndrome (RLS) [G25.81] INVALID FOR* More... 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 Osteomyelitis (HCC) [M86.9] INVALID FOR* More... Clostridium difficile infection [B96.89] INVALID FOR* More... Urinary hesitancy [R39.11] INVALID FOR*05/30/2015 More... SUMMARY INVALID FOR* More... Urinary hesitancy [R39.11] INVALID FOR*06/04/2015 More... RLS (restless legs syndrome) [G25.81] INVALID FOR* More... Anxiety neurosis [F41.1] INVALID FOR* More... Positive urine drug screen [R82.5] INVALID FOR* More... Charcot foot due to diabetes mellitus (HCC) [E1*INVALID FOR* Wound infection [T14.8XXA, L08.9] INVALID FOR* More... Hyperlipidemia [E78.5] INVALID FOR* More... Blurry vision [H53.8] INVALID FOR* More... Diarrhea [R19.7] INVALID FOR*09/05/2018 More... Obesity, Class I, BMI 30-34.9 [E66.9] INVALID FOR* Other instructions from your clinician: Continue wound vac to L foot 125 mmHg continous pressure. Change MWF. Disposition: Return in about 1 week (around 09/19/2018) for ulcer, L foot. Follow-up and Disposition History Recorded Encounter Status:Closed by SENDY ALLEN DPM on 09/12/18 PROGRESS Observed: 09/12/2018 Status: COMPLETED Source: [place] 12:54 PM [facility] REPOSITORY HNO ID: [id number] Author: Cecy Carbajal RN Service: (none) Author Type: (none) Type: Progress Notes Filed: 09/12/2018 1:56 PM Note Text: AMB ROOMING INTAKE FLOWSHEET DATA Risk Screening Do you have concerns about personal safety or safety in the home?: No Pain Pain Score: 8/10 Pain Location: Foot-Left Duration Amount of Time: 3 Duration Units: Weeks Frequency: Intermittent Intervention: Relaxation, Medication Patient is here to follow up from the hospital. She was discharged from [facility] two days ago. She states she has home health through [facility] coming to her house for wound vac changes and therapy. She c/o intermittent pain to L foot that is relieved with rest and pain medication that was prescribed from [facility]. She admits to nausea and states she vomitted yesterday. She states she can't eat anything, everything makes her feel sick. Denies any fever. BEDSIDE GLUCOSE Collected: 09/09/2018 Status: F Source: [place] 11:[address] [facility] REPOSITORY TYPE CODE TESTS RESULT OUT OF REFERENCE UNITS RANGE LAB L501.080 70-110 mg/dL High BEDSIDE GLU 123 Result Comment: MANAGEMENT OF PATIENT CARE PER NURSING PROTOCOL Performed By: #### L501.080 #### [facility] Point [facility] [address] [place] [address] BEDSIDE GLUCOSE Collected: 09/09/2018 Status: F Source: [place] 6:[address] [facility] REPOSITORY TYPE CODE TESTS RESULT OUT OF REFERENCE UNITS RANGE LAB L501.080 70-110 mg/dL High BEDSIDE GLU 237 Result Comment: MANAGEMENT OF PATIENT CARE PER NURSING PROTOCOL Performed By: #### L501.080 #### [facility] Point of Care [address] [place] [address] BEDSIDE GLUCOSE Collected: 09/08/2018 Status: F Source: [place] 8:[address] [facility] REPOSITORY TYPE CODE TESTS RESULT OUT OF REFERENCE UNITS RANGE LAB L501.080 70-110 mg/dL High BEDSIDE GLU 359 Result Comment: MANAGEMENT OF PATIENT CARE PER NURSING PROTOCOL Performed By: #### L501.080 #### [facility] Point of Care [address] [place] [address] BEDSIDE GLUCOSE Collected: 09/08/2018 Status: F Source: [place] 4:[address] [facility] REPOSITORY TYPE CODE TESTS RESULT OUT OF REFERENCE UNITS RANGE LAB L501.080 70-110 mg/dL High BEDSIDE GLU 191 Result Comment: MANAGEMENT OF PATIENT CARE PER NURSING PROTOCOL Performed By: #### L501.080 #### [facility] Point of Care [address] [place] [address] BEDSIDE GLUCOSE Collected: 09/08/2018 Status: F Source: [place] 11:[address] [facility] REPOSITORY TYPE CODE TESTS RESULT OUT OF REFERENCE UNITS RANGE LAB L501.080 70-110 mg/dL High BEDSIDE GLU 222 Result Comment: MANAGEMENT OF PATIENT CARE PER NURSING PROTOCOL Performed By: #### L501.080 #### [facility] Laboratory Point of Care [address] [place] [address] 12 LEAD ELECTROCARDIOGRAM Observed: 09/08/2018 Status: F Source: [place] 9:[address] [facility] REPOSITORY [facility] Cardiovascular Services [address] [place] [address] 12 Lead EKG 08/23/18 1615 MR#: [id number] Acct: [id number] Name: DIONY CARRILLO Rep #: [id number] : 1965 53 From: Saravanan Jean Baptiste MD Attending Dr: Alessandro Perez DO Status: DIS IN Ordering Dr: Venu Mccoy MD Date: 08/23/18 Location: [facility] Sex: F C Admitted: 08/22/18 Test Reason : CP Blood Pressure : / mmHG Vent. Rate : 067 BPM Atrial Rate : 067 BPM P-R Int : 162 ms QRS Dur : 094 ms QT Int : 454 ms P-R-T Axes : 042 015 -06 degrees QTc Int : 479 ms Normal sinus rhythm Nonspecific T wave abnormality Prolonged QT Abnormal ECG When compared with ECG of 10-MAY-2018 05:09, No significant change was found Confirmed by SARAVANAN JEAN BAPTISTE MD ([id number]), food editor MARLON GALEANA ([id number]) on 08/28/2018 1:54:48 PM Referred By: Annie Duran Confirmed By:SARAVANAN JEAN BAPTISTE MD 08/28/18 1354 Date Saravanan Jean Baptiste MD CC: Annie Duran MD; Venu Mccoy MD; Alessandro Eric MD; Alessandro Perez DO Signed BEDSIDE GLUCOSE Collected: 09/08/2018 Status: F Source: [place] 6:[address] [facility] REPOSITORY TYPE CODE TESTS RESULT OUT OF REFERENCE UNITS RANGE LAB L501.080 70-110 mg/dL High BEDSIDE GLU 173 Result Comment: MANAGEMENT OF PATIENT CARE PER NURSING PROTOCOL Performed By: #### L501.080 #### [facility] Laboratory Point of Care [address] [place] [address] BEDSIDE GLUCOSE Collected: 09/07/2018 Status: F Source: [place] 9:[address] [facility] REPOSITORY TYPE CODE TESTS RESULT OUT OF REFERENCE UNITS RANGE LAB L501.080 70-110 mg/dL High BEDSIDE GLU 279 Result Comment: MANAGEMENT OF PATIENT CARE PER NURSING PROTOCOL Performed By: #### L501.080 #### [facility] Laboratory Point of Care [address] [place] [address] DISCHARGE SUMMARY Observed: 09/07/2018 Status: F Source: [place] 8:[address] [facility] REPOSITORY [facility] Medical Records Department [address] [place] [address] Discharge Summary 09/07/182000 MR#: [id number] Acct: [id number] Name: DIONY CARRILLO Rep #: [id number] : 1965 53 From: Chauncey Hassan MD PCP: Alessandro Eric MD Status: ADM IN Location: [place] [address] Discharge Date and Diagnosis Date of Admission: 09/05/18 Date of Discharge: 09/09/18 - Secondary Discharge Diagnosis Chronic Problems HLD (hyperlipidemia) (Chronic) Cellulitis (Chronic) Neuropathic pain (Chronic) GERD (gastroesophageal reflux disease) (Chronic) Hypomagnesemia (Chronic) Back pain, chronic (Chronic) Hyponatremia (Chronic) Depression (Chronic) RLS (restless legs syndrome) (Chronic) Type II diabetes mellitus, uncontrolled (Chronic) Anxiety state (Chronic) Hospital Course and Treatment Imaging Results: 09/05/18 17:32 Diet: Cardiac: Carb-Controlled Type of Dietary Supplement:: Glucerna [place]ke Is pt able to select menu?: Yes Diet Comments: 1600 calories Labs (Last 48 Hours) WBC RBC Hgb Hct MCV MCH MCHC RDW RDW Differential Plt Count MPV Immature Gran % (Auto) Consultations 09/05/18 Consult: Onc/Wound/cook chili Routine Comment: Reason for Consult:: lt foot wound vac Operations: None, - Procedures: None Summary of Care Provided: The patient is a 53 year old Female with below past medical history significant for uncontrolled diabetes mellitus, admitted from [facility] for presumed right foot plantar abscess, no surgery performed, to TCU with debility, here for rehabilitation, strengthening, wound care, prior to discharge home alone. Discharge home alone with Home Health Services. - Physical Exam Vital Signs Temp Pulse Resp BP Pulse Ox 98.5 F 80 15 127/67 H 93 09/07/18 14:55 09/07/18 14:55 09/07/18 14:55 09/07/18 14:55 09/07/18 14:55 Oxygen Delivery Method Room Air Weight: 85.2 kg Body Mass Index (BMI) 30.2 Intake and Output for Last 24 Hours Intake Total 240 / 240 1200 / 1200 900 / 900 Balance 240 / 240 1200 / 1200 900 / 900 POC Glucose POC Glucose 212 H 233 H 196 H POC Glucose 256 H Discharge Diet: No Restrictions Discharge Activity: - - Use wheelchair, rollator. Weight Bearing Status: No weight bearing Call your doctor if you observe: Fever of 101 or Higher, Inability to urinate, Inability to have a bowel movement, Shortness of breath, Chest pain, Uncontrolled pain Home Medications: Medications to take at Discharge Insulin Aspart [Novolog Flexpen] 20 units SC TIDCM 01/27/15 Ascorbic Acid 500 mg PO BID 08/22/18 Ergocalciferol [Vitamin D] 50,000 unit PO GRAY 08/22/18 Gabapentin [Neurontin] 800 mg PO TID 08/22/18 Omeprazole [Prilosec] 20 mg PO DAILY 08/22/18 Rosuvastatin Calcium [Crestor] 40 mg PO DAILY 08/22/18 Insulin Glargine [Lantus SoloStar Pen] 30 units SC BREAKFAST 08/25/18 Carboxymethylcellulose Sodium [Refresh Celluvisc] 1 each EACH EYE 4X/DAY 09/05/18 Insulin Glargine [Lantus SoloStar Pen] 35 units SC QHS 09/05/18 Magnesium Oxide [Mag-Ox 400] 400 mg PO BID 09/05/18 Ropinirole HCl [Requip] 3 mg PO 1000,2200 09/05/18 Acetaminophen [Tylenol] 1,000 mg PO Q6H PRN tablet 09/07/18 Escitalopram Oxalate [Lexapro] 10 mg PO DAILY #30 tablet 09/07/18 Gabapentin [Neurontin] 800 mg PO TIDCM tablet 09/07/18 Iron Polysaccharide Complex [Ferrex 150] 150 mg PO DAILYCM #30 capsule 09/07/18 Lactobacillus Rhamnosus GG [Culturelle] 1 each PO DAILY #30 capsule 09/07/18 Oxycodone [Oxyir] 5 mg PO Q8H PRN PRN 3 Days #10 tab 09/07/18 Polyethylene Glycol 3350 [Miralax] 17 gm PO DAILY #30 packet 09/07/18 Simethicone 80 mg PO 4X/DAY PRN PRN #120 tab.chew 09/07/18 proMETHazine tablet [Phenergan tablet] 25 mg PO Q6H PRN PRN #30 tablet 09/07/18 Following Prescrptions Were Given to Patient: proMETHazine tablet [Phenergan tablet] 25 mg PO Q6H PRN PRN #30 tablet PRN Reason: NAUSEA/VOMITING Oxycodone [Oxyir] 5 mg PO Q8H PRN PRN 3 Days #10 tab PRN Reason: Severe Pain (6-10/10) Escitalopram Oxalate [Lexapro] 10 mg PO DAILY #30 tablet Iron Polysaccharide Complex [Ferrex 150] 150 mg PO DAILYCM #30 capsule Lactobacillus Rhamnosus GG [Culturelle] 1 each PO DAILY #30 capsule Polyethylene Glycol 3350 [Miralax] 17 gm PO DAILY #30 packet Simethicone 80 mg PO 4X/DAY PRN PRN #120 tab.chew PRN Reason: Gas Primary Care Physician: Alessandro Eric MD [Primary Care Provider] - Please follow up with your Primary Care Physician in: 1 week. Please Follow Up With: Sendy Allen DPM CANCELED Please Follow Up With: Justin Philippe NP-C CANCELED 09/06/18 Please Follow Up With: Alessandro Eric MD CANCELED 09/06/18 Disposition: Home with Home Health Minutes spent on discharge:: 35 Patient Condition:: Stable Medical Necessity - Tobacco Use Smoking Status: Never smoker Tobacco Use: Non-smoker Meaningful Use Info Meaningful Use Diagnoses (Choose all that apply): None applicable 09/07/182002 <Electronically signed by Chauncey Hassan MD> Date Chauncey Hassan MD Cosigner Signature (if applicable): Date CC: Alessandro Eric MD; Chauncey Hassan MD Signed HOME HEALTH PROGRESS Observed: 09/07/2018 Status: F Source: [place] NOTE 8:[address] [facility] REPOSITORY [facility] Medical Records Department [address] [place] [address] Home Health Progress Note Ozkn-[id number] Encounter Encounter Date: 09/07/182002 MR#: [id number] Acct: [id number] Name: DIONY CARRILLO Rep #: [id number] : 1965 53 From: Chauncey Hassan MD PCP: Alessandro Eric MD Status: ADM IN Location: [place] [address] Home Health Note - Plan Overview of reason of hospitalization: The patient is a 53 year old Female with below past medical history significant for uncontrolled diabetes mellitus, admitted from [facility] for presumed right foot plantar abscess, no surgery performed, to [facility] with debility, here for rehabilitation, strengthening, wound care, prior to discharge home alone. Discharge home alone with Home Health Services. Problems: Complete List of Medical Problems HLD (hyperlipidemia) (Chronic) Cellulitis (Chronic) Neuropathic pain (Chronic) GERD (gastroesophageal reflux disease) (Chronic) Hypomagnesemia (Chronic) Back pain, chronic (Chronic) Hyponatremia (Chronic) Depression (Chronic) Diabetic foot ulcer associated with type 2 diabetes mellitus (Acute) RLS (restless legs syndrome) (Chronic) Type II diabetes mellitus, uncontrolled (Chronic) Anxiety state (Chronic) - Requirements and Reasons Disciplines Needed/Ordered: Penitentiary, Physical Therapy Reason for Disciplines: Disease Specific Monitoring/education, Medication Management/Knowledge Deficit, Wound Care, Gait Training, Stair Training, Fall Prevention, Home Safety/Equipment Instruction, Balance and/or Posture Training, Transfer Training Related To: Limited/Poor Endurance, Physical Impairments, Unsteady Gait/Balance, Fall Risk Patient is unable to leave the home: Without Aid of Supportive Devices (crutches, cane, wheelchair, walker), Without the assistance of another person - Additional Disciplines Additional Disciplines Needed/Ordered: Occupational Therapy 09/07/182002 <Electronically signed by Chauncey Hassan MD> Date Chauncey Hassan MD Cosigner Signature (if indicated): Date CC: Signed DISCHARGE INSTRUCTION Observed: 09/07/2018 Status: F Source: [place] 8:[address] [facility] REPOSITORY [facility] Medical Records Department [address] [place] [address] Instructions for Home/Discharge Instructions 09/07/181958 MR#: [id number] Acct: [id number] Name: DIONY CARRILLO Rep #: [id number] : 1965 53 From: Chauncey Hassan MD PCP: Jeaneth DELVALLE,Alessandro Status: ADM IN You will use the following diet at home:: No restrictions, Regular Your food should be the consistency of: Regular Your liquids should be the consistency of: Regular/Thin Discharge Activity: - - Use wheelchair, rollator. Weight Bearing Status: No weight bearing Call your doctor if you observe: Fever of 101 or Higher, Inability to urinate, Inability to have a bowel movement, Shortness of breath, Chest pain, Uncontrolled pain Allergies/Adverse Reactions: Allergies oxycodone HCl [From OxyContin] Allergy (Verified 08/17/18 14:04) Rash Penicillins Allergy (Verified 08/17/18 14:04) Shortness of breath Medications to take at Discharge Insulin Aspart [Novolog Flexpen] 20 units SC TIDCM 01/27/15 Ascorbic Acid 500 mg PO BID 08/22/18 Ergocalciferol [Vitamin D] 50,000 unit PO GRAY 08/22/18 Gabapentin [Neurontin] 800 mg PO TID 08/22/18 Omeprazole [Prilosec] 20 mg PO DAILY 08/22/18 Rosuvastatin Calcium [Crestor] 40 mg PO DAILY 08/22/18 Insulin Glargine [Lantus SoloStar Pen] 30 units SC BREAKFAST 08/25/18 Carboxymethylcellulose Sodium [Refresh Celluvisc] 1 each EACH EYE 4X/DAY 09/05/18 Insulin Glargine [Lantus SoloStar Pen] 35 units SC QHS 09/05/18 Magnesium Oxide [Mag-Ox 400] 400 mg PO BID 09/05/18 Ropinirole HCl [Requip] 3 mg PO 1000,2200 09/05/18 Acetaminophen [Tylenol] 1,000 mg PO Q6H PRN tablet 09/07/18 Escitalopram Oxalate [Lexapro] 10 mg PO DAILY #30 tablet 09/07/18 Gabapentin [Neurontin] 800 mg PO TIDCM tablet 09/07/18 Iron Polysaccharide Complex [Ferrex 150] 150 mg PO DAILYCM #30 capsule 09/07/18 Lactobacillus Rhamnosus GG [Culturelle] 1 each PO DAILY #30 capsule 09/07/18 Oxycodone [Oxyir] 5 mg PO Q8H PRN PRN 3 Days #10 tab 09/07/18 Polyethylene Glycol 3350 [Miralax] 17 gm PO DAILY #30 packet 09/07/18 Simethicone 80 mg PO 4X/DAY PRN PRN #120 tab.chew 09/07/18 proMETHazine tablet [Phenergan tablet] 25 mg PO Q6H PRN PRN #30 tablet 09/07/18 The following prescriptions were given: proMETHazine tablet [Phenergan tablet] 25 mg PO Q6H PRN PRN #30 tablet PRN Reason: NAUSEA/VOMITING Oxycodone [Oxyir] 5 mg PO Q8H PRN PRN 3 Days #10 tab PRN Reason: Severe Pain (6-10) Escitalopram Oxalate [Lexapro] 10 mg PO DAILY #30 tablet Iron Polysaccharide Complex [Ferrex 150] 150 mg PO DAILYCM #30 capsule Lactobacillus Rhamnosus GG [Culturelle] 1 each PO DAILY #30 capsule Polyethylene Glycol 3350 [Miralax] 17 gm PO DAILY #30 packet Simethicone 80 mg PO 4X/DAY PRN PRN #120 tab.chew PRN Reason: Gas Primary Care Physician: Alessandro Eric MD [Primary Care Provider] - Please follow up with your Primary Care Physician in: 1 week. Test Results: Test results from this visit will be discussed in further detail at your follow-up appointment, if applicable. Please Follow Up With: Sendy Allen DPM CANCELED Please Follow Up With: Justin Philippe NP-C CANCELED 09/06/18 Please Follow Up With: Alessandro Eric MD CANCELED 09/06/18 Proposed Discharge Date: 09/09/18 09/07/182000 <Electronically signed by Chauncey Hassan MD> Date Chauncey Hassan MD CC: BRITTANIE Allen; Alessandro Eric MD BEDSIDE GLUCOSE Collected: 09/07/2018 Status: F Source: [place] 4:[address] [facility] REPOSITORY TYPE CODE TESTS RESULT OUT OF REFERENCE UNITS RANGE LAB L501.080 70-110 mg/dL High BEDSIDE GLU 212 Result Comment: MANAGEMENT OF PATIENT CARE PER NURSING PROTOCOL Performed By: #### L501.080 #### [facility] Point of Care [address] [place], [place] [address] BEDSIDE GLUCOSE Collected: 09/07/2018 Status: F Source: [place] 10:[address] [facility] REPOSITORY TYPE CODE TESTS RESULT OUT OF REFERENCE UNITS RANGE LAB L501.080 70-110 mg/dL High BEDSIDE GLU 233 Result Comment: MANAGEMENT OF PATIENT CARE PER NURSING PROTOCOL Performed By: #### L501.080 #### [facility] Point of Care [address] [place] [address] BEDSIDE GLUCOSE Collected: 09/07/2018 Status: F Source: [place] 5:[address] [facility] REPOSITORY TYPE CODE TESTS RESULT OUT OF REFERENCE UNITS RANGE LAB L501.080 70-110 mg/dL High BEDSIDE GLU 196 Result Comment: MANAGEMENT OF PATIENT CARE PER NURSING PROTOCOL Performed By: #### L501.080 #### [facility] Point of Care [address] [place] [address] BEDSIDE GLUCOSE Collected: 09/06/2018 Status: F Source: [place] 9:[address] [facility] REPOSITORY TYPE CODE TESTS RESULT OUT OF REFERENCE UNITS RANGE LAB L501.080 70-110 mg/dL High BEDSIDE GLU 256 Result Comment: MANAGEMENT OF PATIENT CARE PER NURSING PROTOCOL Performed By: #### L501.080 #### [facility] Point of Care [address] [facility] [place] [address] CONSULTATION Observed: 09/06/2018 Status: F Source: [place] 7:[address] [facility] Medical Records Department [address] [place] [address] Consultation 09/06/181926 MR#: [id number] Acct: [id number] Name: DIONY CARRILLO Rep #: [id number] : 1965 53 From: Sendy Allen DPM PCP: Alessandro Eric MD Status: ADM IN Location: [place] [address] Reason for Consult Date of Consultation: 09/06/18 Reason for Consultation: b/l foot ulceration History of Present Illness: The patient is a 53 noncompliant diabetic female who has ulceration of b/l feet. she has ulceration of left foot treated with wound vac. she is tolerating wound vac changes nicely. she has no pain. patient has ulceration of right foot that she was sent to [facility] [place]. It was determined that in absence of infection, mri findings are likely that of bursitis. patient denies any n/v/f/c. patient has no other complaints. Past Medical History Past Medical History (Chronic Problems): Chronic Problems HLD (hyperlipidemia) (Chronic) Cellulitis (Chronic) Neuropathic pain (Chronic) GERD (gastroesophageal reflux disease) (Chronic) Hypomagnesemia (Chronic) Back pain, chronic (Chronic) Hyponatremia (Chronic) Depression (Chronic) RLS (restless legs syndrome) (Chronic) Type II diabetes mellitus, uncontrolled (Chronic) Anxiety state (Chronic) Allergies oxycodone HCl [From OxyContin] Allergy (Verified 08/17/18 14:04) Rash Penicillins Allergy (Verified 08/17/18 14:04) Shortness of breath Home Medications: Ambulatory Orders Medication Instructions Recorded Insulin Aspart [Novolog Flexpen] 20 units SC TIDCM 01/27/15 Surgical History: - - status post I AND D of R foot 5th metatarsal abscess, 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 Bilateral carpal tunnel surgery 1994, right shoulder surgery in 1994, section x2. Psychiatric History: Anxiety, Depression BEHAVIORAL THERAPIST History: No pertinent BEHAVIORAL THERAPIST history Lives: Alone Smoking Status: Never smoker Tobacco Use: Non-smoker Alcohol: None Drugs: None - *Family History Maternal History Items: Diabetes, Hypertension, - - Her mother at the age of 67 to a blood clot to the brain. She had had multiple strokes preceding that. Paternal History Items: - - Patient states her father when she was 5 years old, denies known medical history, denies known cardiac history. Sibling History Items: - - She has one brother who is secondary to cancer and she does not know what kind of cancer he had. She also has 3 brothers with a history of cardiovascular disease, stents and coronary artery bypass grafting. Objective: Patient is alert and orientated x 3. patient does not appear in any distress left foot has wound vac intact and maintaining suction. review of chart shows wound that is nice and granular without signs of infection. right foot has mostly healed ulceration with small eschar and vinicius-wound hyperkeratosis. there does not appear to be any signs of infection. no other ulcerations are noted. - Physical Exam Vital Signs Temp Pulse Resp BP Pulse Ox 98.6 F 77 18 145/76 H 98 09/06/18 16:00 09/06/18 16:00 09/06/18 16:00 09/06/18 16:00 09/06/18 16:00 Oxygen Delivery Method Room Air Weight: 85.2 kg Body Mass Index (BMI) 30.2 Intake and Output for Last 24 Hours Intake Total 240 / 240 1200 / 1200 Balance 240 / 240 1200 / 1200 Laboratory Tests Past 24 Hrs WBC 9.0 RBC 3.81 L Hgb 10.7 L Hct 33.8 L MCV 88.7 MCH 28.1 MCHC 31.7 L POC Glucose POC Glucose 172 H 203 H 278 H POC Glucose 178 H Assessment/Plan All Active Problems Diabetic foot ulcer associated with type 2 diabetes mellitus (Acute) Hepatitis B (Resolved) diabetic foot ulceration of left foot:Continue with wound vac. Will need changed every tuesday, tuesday and Tuesday. Continue with nwb. In a few weeks, consider skin substitute as outpatient. Diabetic foot ulceration of right foot. ulceration is essentially healed. today, black eschar was debrided. it is more of callus. callus debrided with 15 blade. no deep ulceration present. no signs of infection. recommend lotion to her right foot and amerigel to right foot superficial ulceration with small guaze wrap. she is to continue with peg assisted offloading boot. I will round on patient once weekly unless condition worsens prompting me to see her more. Patient will benefit from continued nwb of left foot. all questions answered. 09/06/181944 <Electronically signed by Sendy Allen DPM> Date Sendy Allen DPM Cosigner Signature (if applicable): Date CC: BRITTANIE Allen; Alessandro Eric MD; Chauncey Hassan MD Signed BEDSIDE GLUCOSE Collected: 09/06/2018 Status: F Source: [place] 5:[address] [facility] REPOSITORY TYPE CODE TESTS RESULT OUT OF REFERENCE UNITS RANGE LAB L501.080 70-110 mg/dL High BEDSIDE GLU 172 Result Comment: MANAGEMENT OF PATIENT CARE PER NURSING PROTOCOL Performed By: #### L501.080 #### [facility] Point of Care [address] [place] [address] BEDSIDE GLUCOSE Collected: 09/06/2018 Status: F Source: [place] 11:[address] [facility] REPOSITORY TYPE CODE TESTS RESULT OUT OF REFERENCE UNITS RANGE LAB L501.080 70-110 mg/dL High BEDSIDE GLU 203 Result Comment: MANAGEMENT OF PATIENT CARE PER NURSING PROTOCOL Performed By: #### L501.080 #### [place] Point of Care [address] [place] [address] BEDSIDE GLUCOSE Collected: 09/06/2018 Status: F Source: [place] 6:[address] [facility] REPOSITORY TYPE CODE TESTS RESULT OUT OF REFERENCE UNITS RANGE LAB L501.080 70-110 mg/dL High BEDSIDE GLU 278 Result Comment: MANAGEMENT OF PATIENT CARE PER NURSING PROTOCOL Performed By: #### L501.080 #### [place] [facility] Point of Care [address] [place] [address] BASIC METABOLIC Collected: 09/06/2018 Status: F Source: [place] PROFILE (BMP) 5:[address] [facility] REPOSITORY TYPE CODE TESTS RESULT OUT OF RANGE REFERENCE UNITS LAB L501.0100 74-106 mg/dL High GLU 307 Result Comment: Glucose result greater than or equal to 200 mg/dL suggests DIABETES MELLITUS per A.D.A. criteria. Please note revised GLUCOSE reference range effective 2017. LAB L501.1000 7-18 mg/dL High BUN 20 LAB L501.1100 0.55-1.02 mg/dL High CREAT,SERUM 1.05 Result Comment: The validity of the calculated GFR AND GFRAA in patients over 70 years has not been determined. Clinical correlation is essential. LAB L501.1110 >60 mL/min Low EST GFR 58 Result Comment: Non- GFR Calc LAB L501.1115 >60 mL/min Normal EST GFR - AA 71 Result Comment: GFR Calc LAB L501.1255 ml/min Normal Estimated CRCL 58.01 LAB L501.1300 10-20 RATIO Normal BUN/CRE 19.0 LAB L501.2200 8.5-10 mg/dL Normal .1 CA 8.9 LAB L501.5300 136-14 mmol/L Normal 5 NA 140 LAB L501.5600 3.5-5. mmol/L Normal 1 K 4.2 LAB L501.5900 98-107 mmol/L Normal CL 104 LAB L501.6100 21.0-3 mmol/L Normal 2.0 CO2 28.0 LAB L501.6200 5-15 Normal GAP 8 Performed By: #### L500.2500 #### [facility] [place], [address] CBC W/DIFF, AUTOMATED Collected: 09/06/2018 Status: F Source: [place] 5:[address] [facility] REPOSITORY TYPE CODE TESTS RESULT OUT OF RANGE REFERENCE UNITS LAB L100.1000 4.4-11.0 K/mm3 Normal WBC 9.0 LAB L100.1200 4.2-5.4 M/mm3 Low RBC 3.81 LAB L100.1300 12.0-15.0 g/dl Low HGB 10.7 LAB L100.1400 37-47 % Low HCT 33.8 LAB L100.1500 81-99 fL Normal MCV 88.7 LAB L100.1600 27.0-32.0 pg Normal MCH 28.1 LAB L100.1700 32-36 g/gl Low MCHC 31.7 LAB L100.1810 11.6-14.6 % Normal RDW CV 13.6 LAB L100.1820 35.1-43.9 fl Normal RDW SD 43.5 LAB L100.1900 150-450 K/mm3 Normal PLT 424 LAB L100.2000 6.2-12.0 fl Normal MPV 10.4 LAB L100.2100 47-70 % High NEUT% 74.4 LAB L100.2200 19-41 % Normal LY% 19.0 LAB L100.2300 0-10 % Normal MONO% 5.0 LAB L100.2400 0-5 % Normal EO% 1.2 LAB L100.2500 0-1 % Normal BASO% 0.2 LAB L100.2550 0.0-0.9 % Normal IM GRAN % 0.200 Result Comment: IG% - Immature Granulocytes (promyelocytes, myelocytes and metamyelocytes) > 1% indicates that a LEFT SHIFT is Present. LAB L100.2620 2.0-7.7 X10 3/uL Normal Absolute Neut 6.7 LAB L100.2720 0.83-4.51 X10 3/ul Normal Absolute Lymph 1.71 Performed By: #### L100.0100 #### [facility] [address] [place], [address] BEDSIDE GLUCOSE Collected: 09/05/2018 Status: F Source: [place] 8:[address] [facility] REPOSITORY TYPE CODE TESTS RESULT OUT OF REFERENCE UNITS RANGE LAB L501.080 70-110 mg/dL High BEDSIDE GLU 178 Result Comment: MANAGEMENT OF PATIENT CARE PER NURSING PROTOCOL Performed By: #### L501.080 #### [facility] Point of Care [address] [place] [address] HISTORY AND PHYSICAL Observed: 09/05/2018 Status: F Source: [place] EXAM 7:[address] [facility] REPOSITORY [facility] Medical Records Department [address] [facility] [place] [address] History and Physical 09/05/187 MR#: [id number] Acct: [id number] Name: DIONY CARRILLO Rep #: [id number] : 1965 53 From: Chauncey Hassan MD PCP: Alessandro Eric MD Status: ADM IN Y Location: [place] [address] Problem List (1) Cellulitis Status: Chronic (2) Neuropathic pain Status: Chronic (3) GERD (gastroesophageal reflux disease) Status: Chronic (4) Hypomagnesemia Status: Chronic (5) Back pain, chronic Status: Chronic (6) Hyponatremia Status: Chronic (7) Depression Status: Chronic (8) Diabetic foot ulcer associated with type 2 diabetes mellitus Status: Acute (9) RLS (restless legs syndrome) Status: Chronic (10) Type II diabetes mellitus, uncontrolled Status: Chronic History of Present Illness Date of Admission: 09/05/18 Chief Complaint: Here for rehabilitation, strengthening, prior to discharge home alone. The patient is a 53 year old Female with below past medical history significant for uncontrolled Diabetes Mellitus II, hospitalized for infected left diabetic foot ulcer, underwent debridement 08/23/[address] Allen, admitted to TCU with debility, here for rehabilitation, strengthening, wound care. 08/29/2018 Transferred to [facility] for right plantar 5th metatarsal base abscess noted on MRI. Patient monitored, serial exams, no surgery performed. 09/05/2018 Admit to TCU with debility, here for rehabilitation, strengthening, wound care, prior to discharge home alone. Past Medical History Past Medical History (Chronic Problems): Chronic Problems HLD (hyperlipidemia) (Chronic) Cellulitis (Chronic) Neuropathic pain (Chronic) GERD (gastroesophageal reflux disease) (Chronic) Hypomagnesemia (Chronic) Back pain, chronic (Chronic) Hyponatremia (Chronic) Depression (Chronic) RLS (restless legs syndrome) (Chronic) Type II diabetes mellitus, uncontrolled (Chronic) Anxiety state (Chronic) Allergies oxycodone HCl [From OxyContin] Allergy (Verified 08/17/18 14:04) Rash Penicillins Allergy (Verified 08/17/18 14:04) Shortness of breath Home Medications: Ambulatory Orders Medication Instructions Recorded Insulin Aspart [Novolog Flexpen] 20 units SC TIDCM 01/27/15 Surgical History: - - status post I AND D of R foot 5th metatarsal abscess, 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 Bilateral carpal tunnel surgery 1994, right shoulder surgery in 1994, section x2. Psychiatric History: Anxiety, Depression BEHAVIORAL THERAPIST History: No pertinent BEHAVIORAL THERAPIST history Lives: Alone Smoking Status: Never smoker Tobacco Use: Non-smoker Alcohol: None Drugs: None - *Family History Maternal History Items: Diabetes, Hypertension, - - Her mother at the age of 67 to a blood clot to the brain. She had had multiple strokes preceding that. Paternal History Items: - - Patient states her father when she was 5 years old, denies known medical history, denies known cardiac history. Sibling History Items: - - She has one brother who is secondary to cancer and she does not know what kind of cancer he had. She also has 3 brothers with a history of cardiovascular disease, stents and coronary artery bypass grafting. Review of Systems Constitutional: Denies: Chills, Fever, Weight Change HEENT: Denies: Head Aches, Sinus Congestion, Sinus Drainage Cardiovascular: Denies: Chest Pain, Palpitations Respiratory: Denies: Cough, Shortness of breath at rest, Sputum production Gastrointestinal: Denies: Abdominal Pain, Nausea, Vomiting Genitourinary: Denies: Dysuria Musculoskeletal: Denies: Joint Pain, Joint Tenderness Skin: Denies: Rash, Wounds Neurological: Denies: Numbness, Tingling, Focal weakness Psychiatric: Denies: Anxiety, Depression, Homicidal Ideations, Suicidal Ideations Hematologic/ Lymphatic: Denies: Easy Bruising, Easy Bleeding VTE Information - Inpt Only VTE Present on Admission: No VTE Mechan Device Prophylaxis: Knee High ROCIO Hose VTE Pharm Prophylaxis ordered?: Yes - Physical Exam General: Alert, Oriented x3, Cooperative HEENT: Atraumatic, PERRLA, EOMI, Normocephalic Neck: Supple, No JVD, Negative Carotid Bruits Lungs: Clear to auscultation, Normal air movement Cardiovascular: Regular rate, No murmurs Abdomen: Bowel Sounds Present, Soft, Non Tender Extremities: No edema, Capillary Refill Less than 3 Seconds Skin: No rashes, No breakdown, - - Bilateral lower extremities dressed with Kerlix, MYLA wraps. Musculoskeletal: No Tenderness to Palpation of Joints or Extremities Neurological: Cranial nerves II-XII grossly intact Psych/Mental Status: Normal Affect, Appropriate Vital Signs Temp Pulse Resp BP Pulse Ox 98.2 F 80 16 129/72 H 98 09/05/18 15:19 09/05/18 15:19 09/05/18 15:19 09/05/18 15:19 09/05/18 15:19 Oxygen Delivery Method Room Air Weight: 85.2 kg Body Mass Index (BMI) 30.2 Intake and Output for Last 24 Hours Intake Total 240 / 240 Balance 240 / 240 POC Glucose POC Glucose 189 H Assessment/Plan All Active Problems Diabetic foot ulcer associated with type 2 diabetes mellitus (Acute) Hepatitis B (Resolved) 53 year old female with below past medical history significant for uncontrolled diabetes mellitus, admitted from [facility] for presumed right foot plantar abscess, no surgery performed, to TCU with debility, here for rehabilitation, strengthening, wound care, prior to discharge home alone. * Debility - PT/OT. * Pain - Tylenol 1000MG Q6H PRN mild pain, Oxycodone 5MG Q8H PRN severe pain. * Bowel - Miralax 17GM daily, Senna/colace 1 tablet BID, Dulcolax 5MG daily PRN. * Pneumonia vaccination - Administer Prevnar 13 and/or Pneumovax 23 as necessary. * DVT prophylaxis - Lovenox 40MG SC daily. * Vitamin C deficiency - Vitamin C 500MG BID. * Hyperlipidemia - Atorvastatin 80MG QHS. * Cellulitis of foot - Keflex 500MG Q8H thru 09/08/2018. * Vitamin D deficiency - D2 50,000 units per week. * Depression - Lexapro 10MG daily. * Diabetes Mellitus II - Lantus 30 units QAM, 35 units QHS, Humalog 20 units TIDAC. * Iron deficiency anemia - Ferrex 150MG daily. * GI prophylaxis - Lactobacillus 1 tablet daily. * Hypomagnesemia - Magnesium Oxide 400MG BID. * GERD - Pantoprazole 20MG daily. * Dry eye - Artificial 1GTT 4x/day. * Nausea - Phenergan 25Mg Q6H PRN. * Restless Leg syndrome - Requip 3MG BID. * Gas - Simethicone 80MG 4x/day PRN. 09/05/181953 <Electronically signed by Chauncey Hassan MD> Date Chauncey Hassan MD Cosigner Signature: Date (if applicable) CC: Alessandro Eric MD; Chauncey Hassan MD Signed BEDSIDE GLUCOSE Collected: 09/05/2018 Status: F Source: [place] 5:[address] [facility] REPOSITORY TYPE CODE TESTS RESULT OUT OF REFERENCE UNITS RANGE LAB L501.080 70-110 mg/dL High BEDSIDE GLU 189 Result Comment: Dr Ponce Followed MANAGEMENT OF PATIENT CARE PER NURSING PROTOCOL Performed By: #### L501.080 #### [facility] Laboratory Point of Care [address] [place], [place] [address] NURSING PROG Observed: 09/05/2018 Status: COMPLETED Source: [place] 1:29 PM [facility] REPOSITORY HNO ID: [id number] Author: Sharita (Rn) KELSIE Dejesus Service: (none) Author Type: Registered Nurse Type: Nursing Progress Note Filed: 09/05/2018 1:30 PM Note Text: Nursing Progress Note Patient Name: Diony Carrillo Patient Location: G080 035/G080-35 Daily Note:Pt dc to [facility]. Left the unit in stretcher. Pain med given. VS stable. DC paper and prescription reviewed with facility RN and pt. Verbalized understanding. No concerns or questions noted. This note was completed by: Sharita Dejesus RN CASE MANAGEM Observed: 09/05/2018 Status: COMPLETED Source: [place] 10:28 AM [facility] REPOSITORY HNO ID: [id number] Author: Caren Novoa Service: Care Management Author Type: Insulation Worker Interior Surface Type: Care Mgt Progress Note Filed: 09/05/2018 10:28 AM Note Text: CARE MANAGEMENT PROGRESS NOTE SERVICE DATE: 09/05/2018 SERVICE TIME: 1021 LOS: 6 days IM letter given to patient on 09/05/2018. SIGNATURE: Caren Novoa, PATIENT NAME: Diony Carrillo DATE: September 05, 2018 TIME: 10:28 AM PAGER/CONTACT #:[id number] PROGRESS Observed: 09/05/2018 Status: COMPLETED Source: [place] 10:00 AM [facility] REPOSITORY HNO ID: [id number] Author: Juanjo Tavares Service: (none) Author Type: Physician Type: Progress Notes Filed: 09/05/2018 10:06 AM Note Text: Minimally narrow angles, non-occludable without PAS Healthy nerves OU No indication for LPI Eye pain resolved - possibly related to dry eyes agree I have confirmed and edited as necessary the relevant ophthalmic history, ROS, and the neuro exam findings as obtained by others. I have seen and examined this patient. I have discussed the case and the management of this patient's care with the Resident/Fellow, if applicable. I also have reviewed and agree with the assessment and plan as stated above and agree with all of its relevant components. Juanjo Tavares MD September 05, 2018 10:04 AM CONSULT PROG Observed: 09/05/2018 Status: COMPLETED Source: [place] 8:42 AM [facility] REPOSITORY HNO ID: [id number] Author: Eileen (Israel Merritt DPM Service: Podiatry Author Type: Resident Type: Consult Progress Note Filed: 09/05/2018 8:45 AM Note Text: PODIATRIC MEDICINE AND SURGERY CONSULT PROGRESS NOTE PODIATRY STAFF [employer] PROFESSOR: Deepika Jensen DPM Please first [place] [phone] with questions/concerns. FOLLOW UP: Left foot open wound, right foot open wound ASSESSMENT: 53 year old female with past medical history significant for uncontrolled DM2 (HgbA1c 12.2%), diabetic neuropathy, s/p R fifth ray amputation, Charcot deformities b/l, hyperlipidemia, restless leg syndrome with wound to b/l feet . PLAN AND RECOMMENDATIONS: - Pt is okay to be discharged back to SNF from a podiatry standpoint. - Spoke with [facility] radiology fellow, read of right foot MRI shoes nonspecific fluid collection with wall enhancement in subcutaneous tissue right above ulcer. On exam ulcer is very superficial, can not exude any pus, ulcer is not draining, warm, cellulitic, or painful. Fluid collection is abscess vs. adventicial bursa, due to lack of any signs of infection we will hold off on deep debridement at this time. - Continuous wound vac applied to left foot today. Right foot dressed with DSD. Dressing should remain clean, dry, and intact. Podiatry will perform dressing changes. - Heel WB for transfers to Right foot, NWB to left foot. Ok to use walker, crutches, or other assistive device(s) to use the restroom or for Physical Therapy. - Elevate LLE at or above the level of the heart. - Antibiotics per ID recommendations. Wound culture taken at OSH. - Pain management per primary team. - Podiatry will continue to follow. DISCHARGE INSTRUCTIONS: - Follow up appointment: Pt will follow with Dr. Allen at rehab facility - Weight bearing status: Non-weightbearing to the L foot heel WB for transfers to right foot with the assistance of crutches, walker. - Wound care: Right foot dressing with betadine, restore silver, gauze, kerlix. Left foot with wound vac. Dressings need to remain clean and dry. Recommend sponge bath or cast protector until first follow up appointment. - Home wound VAC instructions for HHC/SNF. - VAC changes every 48-72hrs. - Apply adhesive drape to wound edges to window the wound. Next cut black foam to size (should be slightly smaller than wound bed) and place in wound bed. Then apply adhesive drape over top of black foam to create a seal. Next cut hole in adhesive drape overlying black foam to the size of the suction hole of TRAC pad. Do not place TRAC pad on healthy skin (may have to bridge foam if depending on location). - VAC settings to 125 mmHg continuous - Please place padding (4x4s, ABDs, or some kind of equivalent) under hose as well as to anterior ankle and posterior heel to prevent rubbing and pressure wounds prior to wrapping with Kerlix and MYLA. INTERVAL HISTORY: Afebrile and hemodynamically stable overnight per recorded vital signs. Denies nausea, vomiting, fever, chills, calf pain, chest pain, shortness of breath, or diarrhea. Current hospital medications: insulin glargine 35 Units pen (long acting) (LANTUS SOLOSTAR, BASAGLAR KWIKPEN) 35 Units SUBCUTANEOUS AT BEDTIME insulin lispro 20 Units injection (rapid acting) (HumaLOG) 20 Units SUBCUTANEOUS TID w MEALS cephALEXin 500 mg cap(s) (KEFLEX) 500 mg ORAL q 6 H carboxymethylcellulose sodium 1 Drop (CELLUVISC) 1 Drop BOTH EYES QID simethicone, chewable 80 mg tab(s) (MYLICON) 80 mg ORAL QID PRN lactobacillus rhamnosus 10 billion cell (CULTURELLE) capsule 1 capsule ORAL DAILY carboxymethylcellulose sodium 1-2 Drop (CELLUVISC) 1-2 Drop BOTH EYES PRN NaCl 0.9% 3-5 mL 3-5 mL INTRAVENOUS q 12 H NaCl 0.9% 2-10 mL 2-10 mL INTRAVENOUS q 12 H acetaminophen 650 mg tab(s) (TYLENOL) 650 mg ORAL q 6 H PRN docusate sodium 100 mg cap(s) (COLACE) 100 mg ORAL BID PRN gabapentin 800 mg tab(s) (NEURONTIN) 800 mg ORAL TID promethazine 12.5 mg tab(s) (PHENERGAN) 12.5 mg ORAL q 6 H PRN rosuvastatin 40 mg tab(s) (CRESTOR) 40 mg ORAL DAILY insulin glargine 30 Units pen (long acting) (LANTUS SOLOSTAR, BASAGLAR KWIKPEN) 30 Units SUBCUTANEOUS DAILY (8 AM) oxyCODONE IR 5 mg tab(s) (ROXICODONE) 5 mg ORAL q [address] 20 mg tab(s) (PROTONIX) 20 mg ORAL BEFORE BREAKFAST DAILY ascorbic acid (vitamin C) 500 mg tab(s) (VITAMIN C) 500 mg ORAL BID w MEALS dextrose 40 % 15 g 15 g ORAL PRN glucagon 1 mg injection (GLUCAGEN) 1 mg INTRAMUSCULAR PRN dextrose 50 % 12.5 g injection 12.5 g INTRAVENOUS PRN sodium hypochlorite (Dakin's Half-Strength) 0.25 % in empty bag Total Volume 480 mL topical irrigation 6 mL/hr IRRIGATION CONTINUOUS rOPINIRole 1.5 mg tab(s) (REQUIP) 1.5 mg ORAL BID insulin lispro injection (rapid acting) (HumaLOG) SUBCUTANEOUS w MEALS AND HS REVIEW OF SYSTEMS: As states in interval history. OBJECTIVE: BP 108/51 Pulse 79 Temp 36.7 ?C (98 ?F) (Oral) Resp 18 Ht 167.6 cm (5' 6) Wt 91 kg (200 lb 9.9 oz) SpO2 97% BMI 32.38 kg/m? Alert and oriented to person, place, and time. No acute distress. Pedal pulses are palpable. CFT is brisk to the distal toes B/L. Able to actively dorsiflex and plantarflex the B/L foot. B/L dressings are clean, dry, and intact without erythema or lymphangiitis beyond the borders of the dressing. Wound vac in place with adequate pressure maintained. No audible or reported leaks present. Verbal consent obtained prior to obtaining photo. All efforts were made to exclude PHI. LABS: Recent Labs 09/05/18 0540 09/04/18 0556 WBC 10.52 9.98 HB 10.7* 11.0* HCT 33.8* 33.9* PLT 401* 393 NA 139 139 K 4.3 4.5 CHLOR 101 103 CO2 21* 22 CREAT 0.90 0.86 BUN 17 16 GLUC 202* 246* CA 9.6 9.5 CRP Date Value Ref Range Status 08/30/2018 0.4 <0.9 mg/dL Final WSR Date Value Ref Range Status 08/30/2018 87 (H) 0 - 20 mm/hr Final PT INR Date Value Ref Range Status 08/30/2018 1.0 0.9 - 1.3 Final Comment: Vitamin K Antagonist (VKA) Therapeutic Range: INR 2 to 3 (Target INR of 2.5) Note: For patients treated with VKA drugs, such as warfarin, the [employer] 2012 Guideline recommends a therapeutic INR range of 2 to 3 (target INR of 2.5). This recommendation includes high-risk patients with antiphospholipid syndrome with previous arterial or venous thromboembolism, current-generation mechanical or bioprosthetic aortic heart valve replacement. Note: Patients with mechanical aortic valve replacement and additional risk factors for thromboembolic events (atrial fibrillation, previous thromboembolism, LV dysfunction, hypercoagulable conditions) or an older generation mechanical AVR (i.e., ball in-Cage) or any mechanical MVR should have a INR therapeutic range of 2.5 to 3.5 (target INR of 3). Celso GH, et al. Chest 2012, 141:7S-47S Luda RA, et al. [facility] 2017, 70: 252-289 APTT Date Value Ref Range Status 08/30/2018 25.1 23.0 - 32.4 sec Final Comment: Unfractionated Heparin Therapeutic Ranges: Standard Heparin Nomogram: 53 to 78 seconds (anti-Xa level of 0.3 to 0.7 U/ml) Low Dose/ACS Nomogram: 49 to 67 seconds (anti-Xa level of 0.2 to 0.5 U/ml) Stroke Treatment Nomogram: 49 to 67 seconds (anti-Xa level of 0.2 to 0.5 U/ml) Note: The APTT therapeutic range has been determined for the current lot of laboratory APTT reagent in use throughout the [facility]. Hemoglobin A1C (%) Date Value 08/30/2018 11.7 08/02/2018 12.2 03/03/2017 12.4 11/26/2016 11.2 01/01/2016 11.2 MICROBIOLOGY: IMAGING: VASCULAR STUDIES: Eileen Merritt DPM, PGY-1 [place] [phone] with questions/concerns. September 05, 2018 8:45 AM CNDS Observed: 09/05/2018 Status: COMPLETED Source: [place] 8:37 AM [facility] REPOSITORY [facility] ID: [id number] Author: Joana Grier Service: Hospital Medicine Author Type: Nurse Practitioner Type: Discharge Summaries Filed: 09/05/2018 8:47 AM Note Text: Attestation signed by Harper Thompson at 09/05/2018 4:04 PM [facility] STAFF PHYSICIAN NOTE OF PERSONAL INVOLVEMENT IN CARE I have reviewed the discharge note obtained and documented by?Joana Grier ?.?I have explored in detail?with the patient?the HPI and ROS.?I have discussed the case and management of the patient's care with Joana Grier ??. I have reviewed available labs, and my exam and A/P are in agreement with the documentation above. Total time spent was more than 35 minutes between 9 am and 4 pm today ?? Harper Thompson MD [facility] [id number] DISCHARGE SUMMARY PATIENT NAME: Diony Carrillo ADMISSION DATE: 08/30/2018 DISCHARGE DATE: 09/05/2018 ATTENDING PHYSICIAN: Harper Thompson Code Status: Full Code Highest Readmission Risk Score: 14 The 30 day readmissions risk score is derived from an internally validated risk model which evaluates patient level characteristics, utilization history, medication orders and lab results up until the day of discharge. Patients with a score of 40 or above are considered highest risk for readmission. Specific patient level drivers will be listed at the bottom of the summary. REASON FOR HOSPITALIZATION: Diabetic Foot Ulcers DIAGNOSIS: Active Problems: Wound infection Uncontrolled type 2 diabetes with neuropathy (HCC) Diabetic polyneuropathy associated with type 2 diabetes mellitus (HCC) Charcot foot due to diabetes mellitus (HCC) Hyperlipidemia Restless legs syndrome (RLS) Blurry vision Resolved Problems: Diarrhea Ruled Out OPERATIONS DURING HOSPITALIZATION: None PROCEDURES DURING HOSPITALIZATION: No procedures performed HOSPITAL COURSE: Diony Carrillo is a 53 year-old female with PMH significant for uncontrolled DM2 (HgbA1c 12.2%), diabetic neuropathy, s/p R fifth ray amputation, Charcot deformities b/l, medical non-compliance, hyperlipidemia, restless leg syndrome, who presented as a transfer from [facility] for further management of b/l diabetic foot ulcers. History obtained from patient, outside records, Epic review. The patient is followed in [place], [place] by Podiatry, Dr. Allen, for b/l foot ulcers. On 08/18 pt seen in office with Dr. Allen and noted to have new b/l ulcers. Per Dr. Allen's documentation, pt had presented to OSH the day prior 08/17 with pain to b/l feet and complaint of ulcerations for ~ 2 weeks. She was given antibiotics and d/c. Per Dr. Allen's documentation on 08/18 office visit: Full thickness debridement of b/l foot ulceration thru dermis, epidermis, subcutaneous tissue was performed with tissue nippers and 15 blade. Wound culture was sent of left foot given vinicius-wound erythema. ?There is no fluctuance or drainage present. ?She is on doxycycline. ?She will continue. ?Will monitor culture results. ?She was placed in boot with peg assisted offloading, wheelchair, and advised to complete daily dressing changes with silvercel. She was advised to return 08/22 for follow-up. On 08/22, L foot ulcer with concern for abscess, referred for admission to [facility]. Cultures from 08/18 grew GPC, GBS. On admission 08/22 she was placed on IV vanco, levaquin, flagyl. MRI L foot 08/22 without reported evidence of OM. 08/23 she underwent IANDD, bone biopsy. 08/23 cultures with MSSA, GBS, bone bx preliminary was negative. Antibiotic regimen tailored to cefepime and flagyl and thereafter modified to oral regimen of bactrim/flagyl/keflex. Bactrim and flagyl were d/c after pt experienced N/V. She was continued on keflex (course to be completed 09/02/18), wound VAC to L foot, and discharged 08/25 to SNF where she was to be followed by her Pharmacy Operations Specialist. Repeat XR L foot with no sign of infection. XR R foot with new metatarsal lucency. 08/29/2018 MRI right foot with right foot plantar abscess, Dr. Allen recommended transfer to [facility]. The patient was HDS and afebrile on admission to [facility]. Podiatry and Infectious Disease were consulted. Radiology provided a second read of OSH MRI R foot, notable for non-specific fluid collection with wall enhancement in subcutaneous tissue above R foot plantar surface ulcer. Per Podiatry ulcer is superficial on exam, no purulent drainage, no evidence of cellulitis. Due to lack of any signs of infection, Podiatry recommended no role for deep debridement. ID in agreement, and recommended completion of four additional days of PO keflex to complete a total of 2-week course. The patient reported new onset blurry vision and Ophthalmology was consulted. Exam notable for diabetic proliferative retinopathy and Avastin injections were administered. She is being discharged to SNF with wound vac to left foot and dressing changes to right foot. Follow up is scheduled with internal medicine and podiatry. Transitions of Care Critical Issues: SPECIALIST FOLLOW-UP: Podiatry and Internal Medicine RODRIGUEZ MEDICATION CHANGES: Lantus and lispro increased LABS AND PROCEDURES PENDING AT DISCHARGE: No pending results. CONSULTING TEAMS DURING HOSPITALIZATION: Podiatry, Infectious Disease, Ophthalmology PATIENT CONDITION AT DISCHARGE: Stable DISCHARGE DISPOSITION: [facility] Discharge Physical Exam: VITAL SIGNS: BP 108/51 Pulse 79 Temp 36.7 ?C (98 ?F) (Oral) Resp 18 Ht 167.6 cm (5' 6) Wt 91 kg (200 lb 9.9 oz) SpO2 97% BMI 32.38 kg/m? Physical Exam Performed: GENERAL: Alert, no distress, cooperative. Obese SKIN: Skin color, texture, turgor normal. HEAD/SINUSES: No significant findings EYES: PERRLA, EOMI. Conjunctiva clear. LUNGS: Lungs clear to auscultation, Good diaphragmatic excursion CARDIAC: Normal S1 and S2; no rubs, murmurs, or gallops ABDOMEN: Abdomen soft, non-tender, BS normal, No masses or organomegaly EXTREMITIES: b/l LE generalized edema. B/l foot charcot deformities. 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 R plantar superficial wound. L foot surgical wound to VAC dressing, serous drng NEURO: diminished sensation b/l feet to level of mid-ruiz. Diminished sensation to b/l palms. Cranial nerves II-XII intact PULSES: 2+ radial INFORMATION PROVIDED TO PATIENT: Discharge instructions provided to the patient and facility. DIET: Resume pre-hospital diet Low carb diet: 3-5 carbs/meal, <200 mg cholesterol, low saturated fat DISCHARGE INSTRUCTIONS: - Follow up appointment: Pt will follow with Dr. Allen at rehab facility - Weight bearing status: Non-weightbearing to the L foot heel WB for transfers to right foot with the assistance of crutches, walker. - Wound care: Right foot dressing with betadine, restore silver, gauze, kerlix. Left foot with wound vac. Dressings need to remain clean and dry. Recommend sponge bath or cast protector until first follow up appointment. - Home wound VAC instructions for HHC/SNF. - VAC changes every 48-72hrs. - Apply adhesive drape to wound edges to window the wound. Next cut black foam to size (should be slightly smaller than wound bed) and place in wound bed. Then apply adhesive drape over top of black foam to create a seal. Next cut hole in adhesive drape overlying black foam to the size of the suction hole of TRAC pad. Do not place TRAC pad on healthy skin (may have to bridge foam if depending on location). - VAC settings to 125 mmHg continuous - Please place padding (4x4s, ABDs, or some kind of equivalent) under hose as well as to anterior ankle and posterior heel to prevent rubbing and pressure wounds prior to wrapping with Kerlix and MYLA. ALLERGIES Allergen Reactions - Oxycontin [Oxycodon* itch - Penicillins Hives - Requip [Ropinirole] Intolerance Vomiting, panic attacks, itching DISCHARGE MEDICATION: Current Discharge Medication List START taking these medications acetaminophen (TYLENOL) 650 mg Take 650 mg by mouth every 6 hours as needed. carboxymethylcellulose sodium (CELLUVISC) 1 Drop Use 1 Drop in both eyes four times daily. cephALEXin (KEFLEX) 500 mg Take 500 mg by mouth every 6 hours. Qty: 8 capsule Refills: 0 docusate sodium (COLACE) 100 mg Take 100 mg by mouth twice daily as needed for Constipation. lactobacillus rhamnosus (CULTURELLE) 1 capsule Take 1 capsule by mouth once daily. simethicone, chewable (MYLICON) 80 mg Take 80 mg by mouth four times daily as needed (GI upset). CONTINUE these medications which have CHANGED insulin glargine (LANTUS SOLOSTAR U-100 INSULIN) 100 unit/mL (3 mL) inpn Inject 30 units subcutaneously in the AM and 35 units in the PM insulin aspart U-100 (NovoLOG) 20 Units Inject 20 Units subcutaneously three times daily with meals. Qty: 135 Pen Refills: 0 Associated Diagnoses:Uncontrolled type 2 diabetes with neuropathy (HCC) CONTINUE these medications which have NOT CHANGED oxyCODONE IR (ROXICODONE) 5 mg Take 5 mg by mouth every 8 hours as needed. Earliest Fill Date: 08/28/18 Refills: 0 gabapentin (NEURONTIN) 800 mg Take 800 mg by mouth three times daily. Qty: 90 tablet Refills: 0 Associated Diagnoses:Diabetes mellitus with neurological manifestations, uncontrolled (HCC); Thoracic radiculitis Blood-Glucose Meter 1 Units 1 Units as directed. Dx: E11.40 Qty: 1 Each Refills: 0 Associated Diagnoses:Uncontrolled type 2 diabetes with neuropathy (HCC) rOPINIRole Hydrochloride 3 mg Take 3 mg by mouth twice daily. Qty: 180 tablet Refills: 1 Associated Diagnoses:RLS (restless legs syndrome) rosuvastatin (CRESTOR) 40 mg Take 40 mg by mouth once daily. Qty: 90 tablet Refills: 1 Associated Diagnoses:Disorder of lipoid metabolism; Mixed hyperlipidemia insulin needles, DISPOSABLE, (PEN NEEDLE) 31 gauge x 5/16 ndle Use as directed four times daily Qty: 400 Each Refills: 3 ascorbic acid (vitamin C) (VITAMIN C) 500 mg Take 500 mg by mouth twice daily. Take with iron (ferrous sulfate). Qty: 60 tablet Refills: 0 Associated Diagnoses:RLS (restless legs syndrome) !! blood sugar diagnostic (ACCU-CHEK MEGAN) test strip Test blood sugar(s) 3-4 times daily. Dx: Type 1 DM - Uncontrolled E 10.65 Insulin: Yes Qty: 100 Strip Refills: 11 !! blood sugar diagnostic (ACCU-CHEK MEGAN PLUS TEST STRP) test strip Check blood sugar readings 2-3 times daily and as needed. Insulin dependent. Dx: E11.40 Qty: 100 Strip Refills: 11 Associated Diagnoses:Uncontrolled type 2 diabetes with neuropathy (HCC) !! Lancets (ACCU-CHEK MULTICLIX LANCET) lancets Check blood sugar readings 2-3 times daily. Insulin dependent. Dx: E11.40 Qty: 100 Each Refills: 11 Associated Diagnoses:Uncontrolled type 2 diabetes with neuropathy (HCC) Blood-Glucose Meter 1 Each 1 Each as needed. Qty: 1 Each Refills: 0 !! Lancets lancets Test 2-3 times a day Qty: 100 Each Refills: 0 psyllium (KONSYL) 1 Packet Take 1 Packet by mouth once daily. promethazine (PHENERGAN) 25 mg Take 25 mg by mouth every 6 hours as needed. magnesium oxide (MAG-OX) 400 mg Take 400 mg by mouth twice daily. Qty: 60 tablet Refills: 2 omeprazole (PriLOSEC) 20 mg Take 20 mg by mouth daily before breakfast. 1/2 hr before meal. Qty: 30 capsule Refills: 11 ergocalciferol (vitamin D2) (DRISDOL) 50,000 Units Take 50,000 Units by mouth once each week. Qty: 12 capsule Refills: 0 Associated Diagnoses:Vitamin D deficiency; RLS (restless legs syndrome) !! - Potential duplicate medications found. Please discuss with provider. FUTURE APPOINTMENTS: Appointments for Next 60 Days Date Time Provider Location Dept Phone 09/05/2018 8:30 AM JUANJO TAVARES OPHT i Bldg [phone] 09/06/2018 1:00 PM JUSTIN PHILIPPE (FILM HISTORIAN) COUNT INCLUDES THE [facility] [phone] 09/06/2018 2:25 PM ASSESSMENT PODI COUNT INCLUDES THE [facility] WSTR COUNT INCLUDES THE [facility] [phone] 09/06/2018 2:45 PM SENDY ALLEN COUNT INCLUDES THE [facility] [phone] 09/11/2018 2:00 PM ALESSANDRO ERIC COUNT INCLUDES THE [facility] [phone] The patient's risk for 30-day readmission is determined using the following contributing factors: Pt variables contributing to increased readmission risk: 20 Active Medication Orders 16 Most Recent BUN Result 9.6 First Resulted Calcium During Admission 1 Insurance - Medicare TIME OF CARE: Discharge Management: I personally spent greater than 30 minutes involved in the discharge management of this patient. SIGNATURE: Joana Grier APRN.CNP PATIENT NAME: Diony Carrillo DATE: September 05, 2018 TIME: 8:38 AM PAGER/CONTACT #: [phone] CASE MANAGEM Observed: 09/05/2018 Status: COMPLETED Source: [place] 7:51 AM [facility] [place] REPOSITORY HNO ID: [id number] Author: Ginna Rosas) Emilia Service: Care Management Author Type: Small Lot Operator Type: Care Mgt Progress Note Filed: 09/05/2018 8:19 AM Note Text: CARE MANAGEMENT DISCHARGE NOTE SERVICE DATE: 09/05/2018 SERVICE TIME: 7:51 AM LOS: 6 days Admission Date: 08/30/2018 DISCHARGE ARRANGEMENT (list agency and phone number) [facility] facility: Was an expedited discharge program used? No Provider: [facility] CAREGIVER ASSESSMENT: Caregiver is ready, willing and able to meet the patient's needs as recommended by the inter-professional team? Yes Patient's transition needs and plan for meeting these needs: Pt will have needs met at SNF. Does the patient have an acute stroke diagnosis, or has the patient had a stroke during this admission? No HANDOFF COMMUNICATION: Alessandro Eric MD - (Inactive), In Basket (Active) [address] [facility] [phone] (Ph) TRANSPORTATION ARRANGEMENTS: Mode of Transportation: Ambulance Transportation Agency and Phone #: [facility] Newsome [phone] . Date of Trip: 09/05/18 Type of Service: BLS Non-emergency Is Patient Medicaid Pending: No Discussion of financial coverage occurred with Patient . Crematorium Operator [place] [facility] [place] [facility] Financial Care Management Responsibility: None Estimated Charge: n/a Approving Spindle Setter: n/a ADDITIONAL CONTACT RESOURCES: Needs Prior to Discharge: Ready for Discharge Pt is medically ready. Pt will dc to [facility] via [facility] Newsome at 1PM. RN to RN report number [phone]. DC instructions sent to facility. SIGNATURE: ERIN Fleming PATIENT NAME: Diony Carrillo DATE: September 05, 2018 TIME: 7:51 AM PAGER/CONTACT #: [phone] CBC Collected: 09/05/2018 Status: F Source: [place] 5:40 AM [facility] REPOSITORY TYPE CODE TESTS RESULT OUT OF REFERENCE UNITS RANGE LAB WBC 3.70-11.00 k/uL WBC 10.52 LAB RBC 3.90-5.20 m/uL Low RBC 3.80 LAB HGB 11.5-15.5 g/dL Low Hemoglobin 10.7 LAB HCT 36.0-46.0 % Low Hematocrit 33.8 LAB MCV 80.0-100.0 fL MCV 88.9 LAB MCH 26.0-34.0 pG MCH 28.2 LAB MCHC 30.5-36.0 g/dL MCHC 31.7 LAB RDWCV 11.5-15.0 % RDW-CV 13.3 LAB PLTCT 150-400 k/uL Platelet High Count 401 LAB MPV 9.0-12.7 fL MPV 10.5 LAB ABSNUC <0.01 k/uL Absolute nRBC <0.01 Performed By: #### CBC, BMP #### [facility] [address] [id number] BASIC METABOLIC PANL Collected: 09/05/2018 Status: F Source: [place] 5:40 AM [facility] REPOSITORY TYPE CODE TESTS RESULT OUT OF REFERENCE UNITS RANGE LAB GLU 74-99 mg/dL High Glucose 202 Result Comment: The [place] Diabetes Association (ADA) provides guidance for cutoff values for fasting glucose and random glucose. The ADA defines fasting as no caloric intake for at least 8 hours. Fas ting plasma glucose results between 100 to 125 mg/dL indicate increased risk for diabetes (prediabetes). Fasting plasma glucose results greater than or equal to 126 mg/dL meet the criteria for diagnosis of diabetes. In the absence of unequivocal hyperglycemia, results should be confirmed by repeat testing. In a patient with classic symptoms of hyperglycemia or hyperglycemic crisis, random plasma glucose results greater than or equal to 200 mg/dL meet the criteria for diagnosis of diabetes. Reference: Standards of Medical Care in Diabetes 2016, [place] Diabetes Association. Diabetes Care. 2016.39(Suppl 1). LAB BUN 7-21 mg/dL BUN 17 LAB CRET 0.58-0.96 mg/dL Creatinine 0.90 LAB NA 136-144 mmol/L Sodium 139 LAB K 3.7-5.1 mmol/L Potassium 4.3 LAB CL 97-105 mmol/L Chloride 101 LAB CO2 22-30 mmol/L CO2 Low 21 LAB AGAP 9-18 mmol/L Anion Gap 17 LAB CA 8.5-10.2 mg/dL Calcium, Total 9.6 LAB GFRAA eGFR- Amer. >60 LAB GFRNAA . eGFR-All Other Races >60 Result Comment: eGFR (Estimated GFR) Units of measure: mL/min/1.73 meters squared eGFR is derived from the reexpressed MDRD Study equation using the following parameters: serum creatinine, age, gender and race. The creatinine assay has been calibrated to be traceable to IDMS. An eGFR <60 mL/min/1.73m2 for >3 months is consistent with chronic kidney disease. Refer to KDOQI guidelines for clinical interpretation. In patients with unstable renal function, e.g. those with acute kidney injury, the eGFR may not accurately reflect actual GFR. Performed By: #### CBC, BMP #### [facility] [address] [address] PROGRESS Observed: 09/04/2018 Status: COMPLETED Source: [place] 3:35 PM [facility] REPOSITORY HNO ID: [id number] Author: Joana Grier Service: Hospital Medicine Author Type: Nurse Practitioner Type: Progress Notes Filed: 09/04/2018 3:39 PM Note Text: HOSPITAL MEDICINE PROGRESS NOTE NIGHT AND WEEKEND COVERAGE: Days: 7:30am - 5:30pm, please page me for patient issues. Nights: 5:30pm - 7:30am, please page GIM overnight coverage pager [phone] SUBJECTIVE Interval HPI: Patient reports her eye is feeling much better today. She endorses some pain to her foot, but nothing significant. She is medically stable for discharge to SNF tomorrow 1pm. They are unable to accommodate the veraflo vac. Discussed with podiatry, they will change to continuous vac tomorrow prior to discharge. OBJECTIVE 09/03/18 1509 09/03/18 2018 09/03/18 2346 09/04/18 0802 BP: 111/60 132/60 117/50 (!) 120/48 Pulse: 79 78 77 76 Resp: Temp: 36.9 ?C (98.4 ?F) 36.9 ?C (98.4 ?F) 37.1 ?C (98.8 ?F) 36.8 ?C (98.2 ?F) TempSrc: Oral Oral Oral Oral SpO2: 97% 100% 98% 95% Weight: Height: Physical Exam Performed: GENERAL: Alert, no distress, cooperative. Obese SKIN: Skin color, texture, turgor normal. HEAD/SINUSES: No significant findings EYES: PERRLA, EOMI. Conjunctiva clear. LUNGS: Lungs clear to auscultation, Good diaphragmatic excursion CARDIAC: Normal S1 and S2; no rubs, murmurs, or gallops ABDOMEN: Abdomen soft, non-tender, BS normal, No masses or organomegaly EXTREMITIES: b/l LE generalized edema. B/l foot charcot deformities. 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 R plantar superficial wound. L foot surgical wound with granulation tissue present, to Veraflo VAC dressing, serous drng NEURO: diminished sensation b/l feet to level of mid-ruiz. Diminished sensation to b/l palms. Cranial nerves II-XII intact PULSES: 2+ radial Lines, Drains, and Airways Line Peripheral 09/01/18 1626 Short Right Antecubital 20 Gauge 2 days Reviewed lines, drains, AND airways. Need to be continued Medications: Reviewed Diagnostic tests reviewed: Most recent imaging and labs CARE COORDINATION: Diony Carrillo is a 53 year-old female with PMH significant for uncontrolled DM2 (HgbA1c 12.2%), diabetic neuropathy, s/p R fifth ray amputation, Charcot deformities b/l, medical non-compliance, hyperlipidemia, restless leg syndrome, who presented as a transfer from [facility] for further management of b/l diabetic foot ulcers. History obtained from patient, outside records, Epic review. The patient is followed in [place], [place] by Podiatry, Dr. Allen, for b/l foot ulcers. On 08/18 pt seen in office with Dr. Allen and noted to have new b/l ulcers. Per Dr. Allen's documentation, pt had presented to OSH the day prior 08/17 with pain to b/l feet and complaint of ulcerations for ~ 2 weeks. She was given antibiotics and d/c. Per Dr. Allen's documentation on 08/18 office visit: Full thickness debridement of b/l foot ulceration thru dermis, epidermis, subcutaneous tissue was performed with tissue nippers and 15 blade. Wound culture was sent of left foot given vinicius-wound erythema. There is no fluctuance or drainage present. She is on doxycycline. She iwll continue. Will monitor culture results. She was placed in boot with peg assisted offloading, wheelchair, and advised to complete daily dressing changes with silvercel. She was advised to return 08/22 for follow-up. On 08/22, L foot ulcer with concern for abscess, referred for admission to [facility]. Cultures from 08/18 grew GPC, GBS. On admission 08/22 she was placed on IV vanco, levaquin, flagyl. MRI L foot 08/22 without reported evidence of OM. 08/23 she underwent IANDD, bone biopsy. 08/23 cultures with MSSA, GBS, bone bx preliminary was negative. Antibiotic regimen tailored to cefepime and flagyl and thereafter modified to oral regimen of bactrim/flagyl/keflex. Bactrim and flagyl were d/c after pt experienced N/V. She was continued on keflex (course to be completed 09/02/18), wound VAC to L foot, and discharged 08/25 to SNF where she was to be followed by her Pharmacy Operations Specialist. Repeat XR L foot with no sign of infection. XR R foot with new metatarsal lucency. 08/29/2018 MRI right foot with right foot plantar abscess, Dr. Allen recommended transfer to [facility]. The patient was HDS and afebrile on admission to [facility]. Podiatry and ID were consulted. ASSESSMENT AND PLAN Active Hospital Problems as of 09/04/2018 Noted - Resolved Hospital Wound infection 08/30/2018 - Present Current Assessment AND Plan Presented as a transfer from [facility] for further management of b/l diabetic foot ulcers. Followed in [place], [place] by Podiatry, Dr. Allen 08/18 pt seen in office with Dr. Allen and noted to have new b/l ulcers. Pt had presented to OSH the day prior 08/17 with pain to b/l feet and complaint of ulcerations for ~ 2 weeks. She was given antibiotics and d/c. Per Dr. Allen's documentation on 08/18 office visit: Full thickness debridement of b/l foot ulceration thru dermis, epidermis, subcutaneous tissue was performed with tissue nippers and 15 blade. Wound culture was sent of left foot given vinicius-wound erythema. There is no fluctuance or drainage present. She is on doxycycline. She iwll continue. Will monitor culture results. She was placed in boot with peg assisted offloading, wheelchair, and advised to complete daily dressing changes with silvercel. She was advised to return 08/22 for follow-up. On 08/22, L foot ulcer with concern for abscess, referred for admission to [facility]. Cultures from 08/18 grew GPC, GBS. On admission 08/22 she was placed on IV vanco, levaquin, flagyl. MRI L foot 08/22 without reported evidence of OM. 08/23 she underwent IANDD, bone biopsy. 08/23 cultures with MSSA, GBS, bone bx preliminary was negative. Antibiotic regimen tailored to cefepime and flagyl and thereafter modified to oral regimen of bactrim/flagyl/keflex. Bactrim and flagyl were d/c after pt experienced N/V. She was continued on keflex (course to be completed 09/02/18), wound VAC to L foot, and discharged 08/25 to SNF where she was to be followed by her Pharmacy Operations Specialist. Repeat XR L foot with no sign of infection. XR R foot with new metatarsal lucency. 08/29/2018 MRI right foot with right foot plantar abscess Dr. Allen recommended transfer to [facility] Pt HDS and afebrile on arrival to F Plan: Podiatry and ID following Outside imaging uploaded, request to Radiology for 2nd read, spoke with [id number], non-specific fluid collection at 5th metatarsal stump; Rad communicated with Pod as well Per Podiatry: due to lack of any signs of infection we will hold off on deep debridement at this time L foot to Veraflo VAC dressing, appreciate discharge wound care instructions Per ID, may complete additional 4 days of PO keflex to complete 2-week course NWB for now, may pivot R heel Elevate b/l LE PT/OT Will return to SNF tomorrow Uncontrolled type 2 diabetes with neuropathy (HCC) 05/23/2015 - Present Current Assessment AND Plan IDDM, home regimen lantus 30 units and humalog 15u/meal HgbA1c 12.2% Non-compliant with diet Plan: Lantus 30 units AM, 35 units hs humalog 20units prandial SSI Hypoglycemia protocol Carb-controlled diet Diabetic polyneuropathy associated with type 2 diabetes mellitus (HCC) 06/02/2007 - Present Current Assessment AND Plan Polyneuropathy in uncontrolled DM Diminished sensation in stocking/glove pattern Plan: Continue neurontin 800mg TID Charcot foot due to diabetes mellitus (HCC) 06/21/2018 - Present Hyperlipidemia 08/30/2018 - Present Current Assessment AND Plan Continue crestor Restless legs syndrome (RLS) 06/02/2007 - Present Current Assessment AND Plan Continue requip Blurry vision 08/31/2018 - Present Current Assessment AND Plan Pt reports today 08/31 b/l blurry vision x 4 days No eye pain, drainage, itching Plan: Coordinate evaluation with ophthal S/p avastin injection 09/01 Seen by ophtho again today, and they will follow up tomorrow morning with resource specialist teacher Glucose control as above Artificial tears PRN Diarrhea 09/02/2018 - Present Current Assessment AND Plan Diarrhea overnight, described as watery Reports history of C diff Recent antibiotic use and hospital/SNF admissions Plan: Cdiff negative Simethicone for GI upset culturelle initiated VTE Prophylaxis: VTE prophylaxis appropriate Disposition: SNF Plan of care discussed with: Patient, RN, BEKA/LUCRETIA, Podiatry, and Attending ?? SIGNATURE: Joana Grier CNP PATIENT NAME: Diony Carrillo DATE: September 04, 2018 TIME: 3:36 PM PAGER/CONTACT #: [phone] CASE MANAGEM Observed: 09/04/2018 Status: COMPLETED Source: [place] 1:53 PM [facility] REPOSITORY [facility] ID: [id number] Author: Ginna Nieto (Sw) Service: Care Management Author Type: Small Lot Operator Type: Care Mgt Progress Note Filed: 09/04/2018 1:55 PM Note Text: CARE MANAGEMENT PROGRESS NOTE SERVICE DATE: 09/04/2018 SERVICE TIME: 1:53 PM LOS: 5 days Needs Prior to Discharge: Ready for Discharge [facility] Pt will discharge to [facility] SNF via [facility] Newsome at 1pm Tuesday09/05/18. Primary team and pt updated. SIGNATURE: ERIN Fleming PATIENT NAME: Diony Carrillo DATE: September 04, 2018 TIME: 1:53 PM PAGER/CONTACT #: [phone] CONSULT PROG Observed: 09/04/2018 Status: COMPLETED Source: [place] 1:23 PM [facility] [place] REPOSITORY HNO ID: [id number] Author: Eileen (Lelia) BRITTANIE Merritt Service: Podiatry Author Type: Resident Type: Consult Progress Note Filed: 09/04/2018 1:58 PM Note Text: PODIATRIC MEDICINE AND SURGERY CONSULT PROGRESS NOTE PODIATRY STAFF [employer] RESOURCES PROFESSOR: Deepika Jensen DPM Please first [place] [phone] with questions/concerns. FOLLOW UP: Left foot open wound, right foot open wound ASSESSMENT: 53 year old female with past medical history significant for uncontrolled DM2 (HgbA1c 12.2%), diabetic neuropathy, s/p R fifth ray amputation, Charcot deformities b/l, hyperlipidemia, restless leg syndrome with wound to b/l feet . PLAN AND RECOMMENDATIONS: - Pt is okay to be discharged back to SNF from a podiatry standpoint. - Spoke with [facility] radiology fellow, read of right foot MRI shoes nonspecific fluid collection with wall enhancement in subcutaneous tissue right above ulcer. On exam ulcer is very superficial, can not exude any pus, ulcer is not draining, warm, cellulitic, or painful. Fluid collection is abscess vs. adventicial bursa, due to lack of any signs of infection we will hold off on deep debridement at this time. - Veraflo wound vac with dakins irrigation applied to left foot changed yesterday. Will convert pt to continuous wound vac tomorrow in preparation for discharge tomorrow. Right foot dressed with DSD. Dressing should remain clean, dry, and intact. Podiatry will perform dressing changes. - Heel WB for transfers to Right foot, NWB to left foot. Ok to use walker, crutches, or other assistive device(s) to use the restroom or for Physical Therapy. - Elevate LLE at or above the level of the heart. - Antibiotics per ID recommendations. Wound culture taken at OSH. - Pain management per primary team. - Podiatry will continue to follow. DISCHARGE INSTRUCTIONS: - Follow up appointment: Pt will follow with Dr. Allen at rehab facility - Weight bearing status: Non-weightbearing to the L foot heel WB for transfers to right foot with the assistance of crutches, walker. - Wound care: Dressings need to remain clean and dry. Recommend sponge bath or cast protector until first follow up appointment. - Home wound VAC instructions for C/SNF. - VAC changes every 48-72hrs. - Apply adhesive drape to wound edges to window the wound. Next cut black foam to size (should be slightly smaller than wound bed) and place in wound bed. Then apply adhesive drape over top of black foam to create a seal. Next cut hole in adhesive drape overlying black foam to the size of the suction hole of TRAC pad. Do not place TRAC pad on healthy skin (may have to bridge foam if depending on location). - VAC settings to 125 mmHg continuous - Please place padding (4x4s, ABDs, or some kind of equivalent) under hose as well as to anterior ankle and posterior heel to prevent rubbing and pressure wounds prior to wrapping with Kerlix and MYLA. INTERVAL HISTORY: Afebrile and hemodynamically stable overnight per recorded vital signs. Denies nausea, vomiting, fever, chills, calf pain, chest pain, shortness of breath, or diarrhea. Current hospital medications: insulin glargine 35 Units pen (long acting) (LANTUS SOLOSTAR, BASAGLAR KWIKPEN) 35 Units SUBCUTANEOUS AT BEDTIME cephALEXin 500 mg cap(s) (KEFLEX) 500 mg ORAL q 6 H carboxymethylcellulose sodium 1 Drop (CELLUVISC) 1 Drop BOTH EYES QID insulin lispro 15 Units injection (rapid acting) (HumaLOG) 15 Units SUBCUTANEOUS TID w MEALS simethicone, chewable 80 mg tab(s) (MYLICON) 80 mg ORAL QID PRN lactobacillus rhamnosus 10 billion cell (CULTURELLE) capsule 1 capsule ORAL DAILY carboxymethylcellulose sodium 1-2 Drop (CELLUVISC) 1-2 Drop BOTH EYES PRN NaCl 0.9% 3-5 mL 3-5 mL INTRAVENOUS q 12 H NaCl 0.9% 2-10 mL 2-10 mL INTRAVENOUS q 12 H acetaminophen 650 mg tab(s) (TYLENOL) 650 mg ORAL q 6 H PRN docusate sodium 100 mg cap(s) (COLACE) 100 mg ORAL BID PRN gabapentin 800 mg tab(s) (NEURONTIN) 800 mg ORAL TID promethazine 12.5 mg tab(s) (PHENERGAN) 12.5 mg ORAL q 6 H PRN rosuvastatin 40 mg tab(s) (CRESTOR) 40 mg ORAL DAILY insulin glargine 30 Units pen (long acting) (LANTUS SOLOSTAR, BASAGLAR KWIKPEN) 30 Units SUBCUTANEOUS DAILY (8 AM) oxyCODONE IR 5 mg tab(s) (ROXICODONE) 5 mg ORAL q [address] 20 mg tab(s) (PROTONIX) 20 mg ORAL BEFORE BREAKFAST DAILY ascorbic acid (vitamin C) 500 mg tab(s) (VITAMIN C) 500 mg ORAL BID w MEALS dextrose 40 % 15 g 15 g ORAL PRN glucagon 1 mg injection (GLUCAGEN) 1 mg INTRAMUSCULAR PRN dextrose 50 % 12.5 g injection 12.5 g INTRAVENOUS PRN sodium hypochlorite (Dakin's Half-Strength) 0.25 % in empty bag Total Volume 480 mL topical irrigation 6 mL/hr IRRIGATION CONTINUOUS rOPINIRole 1.5 mg tab(s) (REQUIP) 1.5 mg ORAL BID insulin lispro injection (rapid acting) (HumaLOG) SUBCUTANEOUS w MEALS AND HS REVIEW OF SYSTEMS: As states in interval history. OBJECTIVE: BP (!) 120/48 Pulse 76 Temp 36.8 ?C (98.2 ?F) (Oral) Resp 18 Ht 167.6 cm (5' 6) Wt 91 kg (200 lb 9.9 oz) SpO2 95% BMI 32.38 kg/m? Alert and oriented to person, place, and time. No acute distress. Pedal pulses are palpable. CFT is brisk to the distal toes B/L. Able to actively dorsiflex and plantarflex the B/L foot. B/L dressings are clean, dry, and intact without erythema or lymphangiitis beyond the borders of the dressing. Wound vac in place with adequate pressure maintained. No audible or reported leaks present. Verbal consent obtained prior to obtaining photo. All efforts were made to exclude PHI. LABS: Recent Labs 11/26/18 0556 09/02/18 0711 WBC 9.98 10.61 HB 11.0* 11.7 HCT 33.9* 36.5 PLT 393 374 NA 139 139 K 4.5 4.4 CHLOR 103 100 CO2 22 26 CREAT 0.86 0.92 BUN 16 17 GLUC 246* 144* TPROT -- 7.6 ALB -- 4.0 CA 9.5 9.5 ALKPHOS -- 94 TBILI -- 0.2 AST -- 39* ALT -- 59* CRP Date Value Ref Range Status 08/30/2018 0.4 <0.9 mg/dL Final WSR Date Value Ref Range Status 08/30/2018 87 (H) 0 - 20 mm/hr Final PT INR Date Value Ref Range Status 08/30/2018 1.0 0.9 - 1.3 Final Comment: Vitamin K Antagonist (VKA) Therapeutic Range: INR 2 to 3 (Target INR of 2.5) Note: For patients treated with VKA drugs, such as warfarin, the [employer] 2012 Guideline recommends a therapeutic INR range of 2 to 3 (target INR of 2.5). This recommendation includes high-risk patients with antiphospholipid syndrome with previous arterial or venous thromboembolism, current-generation mechanical or bioprosthetic aortic heart valve replacement. Note: Patients with mechanical aortic valve replacement and additional risk factors for thromboembolic events (atrial fibrillation, previous thromboembolism, LV dysfunction, hypercoagulable conditions) or an older generation mechanical AVR (i.e., ball in-Cage) or any mechanical MVR should have a INR therapeutic range of 2.5 to 3.5 (target INR of 3). Celso ROSS, et al. Chest 2012, 141:7S-47S Luda RA, et al. JACC 2017, 70: 252-289 APTT Date Value Ref Range Status 08/30/2018 25.1 23.0 - 32.4 sec Final Comment: Unfractionated Heparin Therapeutic Ranges: Standard Heparin Nomogram: 53 to 78 seconds (anti-Xa level of 0.3 to 0.7 U/ml) Low Dose/ACS Nomogram: 49 to 67 seconds (anti-Xa level of 0.2 to 0.5 U/ml) Stroke Treatment Nomogram: 49 to 67 seconds (anti-Xa level of 0.2 to 0.5 U/ml) Note: The APTT therapeutic range has been determined for the current lot of laboratory APTT reagent in use throughout the [facility]. Hemoglobin A1C (%) Date Value 08/30/2018 11.7 08/02/2018 12.2 03/03/2017 12.4 11/26/2016 11.2 01/01/2016 11.2 MICROBIOLOGY: IMAGING: VASCULAR STUDIES: Eileen Merritt DPM, PGY-1 Please first [place] [phone] with questions/concerns. September 04, 2018 1:28 PM CONSULT PROG Observed: 09/04/2018 Status: COMPLETED Source: [place] 11:28 AM [facility] REPOSITORY HNO ID: [id number] Author: Indio Moura Service: Ophthalmology Author Type: Physician Type: Consult Progress Note Filed: 09/04/2018 11:33 AM Note Text: She says the discomfort is much better Both eyes. Usually, complaints after injections relate to the iodine disinfectant and corneal irritation. Corneas are clear Both eyes and on talking to her, it was more hurts and not gritty or scratchy and the latter is more corneal while the former could be other things, eg. Elevated eye pressure. Her IOPs are normal now (17 and 18). But, it makes sense to recheck this better and see a glaucoma MD. I spoke with Dr Tavares and he prefers to see her when she is not dilated so he will add her in for tomorrow. I have asked for that appointment. Please call tomorrow AM to confirm and send her over to [facility]; the front office coordinator number is [phone] (I think) but just please leave the floor 30 mins before the appt which should show in [employer]. My note from today is also in our OPD Epic. Thank you. Indio Moura MD 09/04/2018 PROGRESS Observed: 09/04/2018 Status: COMPLETED Source: [place] 11:01 AM [facility] REPOSITORY HNO ID: [id number] Author: Indio Moura Service: (none) Author Type: Physician Type: Progress Notes Filed: 09/04/2018 2:38 PM Note Text: Not as blurry now, vision is better Patient is agitated, shaking her legs (wrestless legs) Pt had injections Both eyes on Tuesday Both eyes started to hurt Tuesday sinai LE better now RE still bothers her some, not near as much Asks if needs new glasses and I had told her last visit she may but too early to recheckl refraction may be fluctuating due to fluctuating BS and once her BSs are stable, advise repeat refraction. Was hurting and could not touch the eyelid No FB sense Drops made it hurt more No buring Like a throbbing like being hit in the eye IOPs OK today 17 and 18 but shallow chambers Both eyes. ?Occludable or occluded? Ask a glaucoma colleague ... Dr Tavares says he would rather see her tomorrow when she is not dilated. Her IOPs are good now and she says it is feeling better so tomorrow should be fine. I have confirmed and edited as necessary the relevant ophthalmic history, ROS, and the neuro exam findings as obtained by others. I have seen and examined Diony Carrillo. I have discussed the case and the management of this patient's care with the Resident/Fellow, if applicable. I also have reviewed and agree with the assessment and plan as stated above and agree with all of its relevant components. Indio Moura MD 09/04/2018 PLAN OF CARE Observed: 09/04/2018 Status: COMPLETED Source: [place] 9:32 AM [facility] REPOSITORY HNO ID: [id number] Author: Dallas Valderrama (Director Of Corporate Sponsorships) Service: (none) Author Type: (none) Type: Plan of Care Filed: 09/04/2018 9:33 AM Note Text: MERCHANDISING REPRESENTATIVE BEDSIDE DELIVERY SURVEY 1. Patient to use [facility] Bedside Delivery - YES 2. If fax, patient would like us to fax prescriptions to Pharmacy of choice a. Pharmacy: b. Location: c. Phone: 3. Insurance card on file - YES 4. Credit card for payment - N/A No prescriptions yet. Please page [phone] upon discharge. CBC Collected: 09/04/2018 Status: F Source: [place] 5:56 AM [facility] REPOSITORY TYPE CODE TESTS RESULT OUT OF REFERENCE UNITS RANGE LAB WBC 3.70-11.00 k/uL WBC 9.98 LAB RBC 3.90-5.20 m/uL Low RBC 3.83 LAB HGB 11.5-15.5 g/dL Low Hemoglobin 11.0 LAB HCT 36.0-46.0 % Low Hematocrit 33.9 LAB MCV 80.0-100.0 fL MCV 88.5 LAB MCH 26.0-34.0 pG MCH 28.7 LAB MCHC 30.5-36.0 g/dL MCHC 32.4 LAB RDWCV 11.5-15.0 % RDW-CV 13.4 LAB PLTCT 150-400 k/uL Platelet Count 393 LAB MPV 9.0-12.7 fL MPV 10.8 LAB ABSNUC <0.01 k/uL Absolute nRBC <0.01 Performed By: #### CBC, BMP #### [facility] [address] [place], [place] [address] BASIC METABOLIC PANL Collected: 09/04/2018 Status: F Source: [place] 5:56 AM [facility] REPOSITORY TYPE CODE TESTS RESULT OUT OF REFERENCE UNITS RANGE LAB GLU 74-99 mg/dL High Glucose 246 Result Comment: The [place] Diabetes [employer] (ADA) provides guidance for cutoff values for fasting glucose and random glucose. The ADA defines fasting as no caloric intake for at least 8 hours. Fas ting plasma glucose results between 100 to 125 mg/dL indicate increased risk for diabetes (prediabetes). Fasting plasma glucose results greater than or equal to 126 mg/dL meet the criteria for diagnosis of diabetes. In the absence of unequivocal hyperglycemia, results should be confirmed by repeat testing. In a patient with classic symptoms of hyperglycemia or hyperglycemic crisis, random plasma glucose results greater than or equal to 200 mg/dL meet the criteria for diagnosis of diabetes. Reference: Standards of Medical Care in Diabetes 2016, [place] Diabetes Association. Diabetes Care. 2016.39(Suppl 1). LAB BUN 7-21 mg/dL BUN 16 LAB CRET 0.58-0.96 mg/dL Creatinine 0.86 LAB NA 136-144 mmol/L Sodium 139 LAB K 3.7-5.1 mmol/L Potassium 4.5 LAB CL 97-105 mmol/L Chloride 103 LAB CO2 22-30 mmol/L CO2 22 LAB AGAP 9-18 mmol/L Anion Gap 14 LAB CA 8.5-10.2 mg/dL Calcium, Total 9.5 LAB GFRAA eGFR- Amer. >60 LAB GFRNAA . eGFR-All Other Races >60 Result Comment: eGFR (Estimated GFR) Units of measure: mL/min/1.73 meters squared eGFR is derived from the reexpressed MDRD Study equation using the following parameters: serum creatinine, age, gender and race. The creatinine assay has been calibrated to be traceable to IDMS. An eGFR <60 mL/min/1.73m2 for >3 months is consistent with chronic kidney disease. Refer to KDOQI guidelines for clinical interpretation. In patients with unstable renal function, e.g. those with acute kidney injury, the eGFR may not accurately reflect actual GFR. Performed By: #### CBC, BMP #### [facility] [employer] [address] [place], [place] [address] CONSULT PROG Observed: 09/03/2018 Status: COMPLETED Source: [place] 5:08 PM [facility] REPOSITORY HNO ID: [id number] Author: Valencia ([place] Bo Service: Ophthalmology Author Type: Resident Type: Consult Progress Note Filed: 09/03/2018 5:12 PM Note Text: Ophthalmology Progress Note September 03, 2018 5:08 PM HPI: Patient complaining of left eye pain with eye movement. Denies significant redness, decreased vision. Feels vision is stable. Exam (portable slit lamp): VA: 20/70 at near OD, 20/30 at near OS (with reading glasses) Lids: normal OU Conj/sclera: trace injection inferotemporal OU at site of injection, no significant redness Cornea: no abrasions or staining defects OU AC: quiet/deep OU Iris: round/reactive OU A/P: - likely irritation/pain related to betadine used to sterilize eye prior to injection - washed left eye out copiously with eye wash at bedside - pt reportedly immediate relief and improvement - recommend artificial tears, 1 drop QID OU - discussed infection precautions -- significant eye redness, significant eye pain, decreased vision Valencia Bo MD Ophthalmology Resident, PGY-3 Pager [phone] On-call pager [phone] PROGRESS Observed: 09/03/2018 Status: COMPLETED Source: [place] 12:01 PM [facility] REPOSITORY HNO ID: [id number] Author: Dinorah Bermudez Service: Hospital Medicine Author Type: Nurse Practitioner Type: Progress Notes Filed: 09/03/2018 12:03 PM Note Text: SERVICE DATE: 09/03/2018 SERVICE TIME: 12:01 PM HOSPITAL MEDICINE PROGRESS NOTE NIGHT AND WEEKEND COVERAGE: Days: [phone], please page me for patient issues. Nights: [phone], please page Team GI 2 - 8th floor: [phone] SUBJECTIVE Interval Events: awake, alert. No events overnight. One loose stool this morning. Cdiff negative. No n/v. Reporting b/l eye pain. No drainage, redness, or itching. No chest pain, dyspnea, dizziness, fever, chills. OBJECTIVE BP 124/55 Pulse 76 Temp (Src) 97.4 (Oral) Resp 18 Ht 5' 6 (1.68m) Wt 200 lb 9.9 oz (91.0kg) SpO2 96% BMI 32.40 kg/(m2). Physical Exam Performed: GENERAL: Alert, no distress, cooperative. Obese SKIN: Skin color, texture, turgor normal. HEAD/SINUSES: No significant findings EYES: PERRLA, EOMI. Conjunctiva clear. LUNGS: Lungs clear to auscultation, Good diaphragmatic excursion CARDIAC: Normal S1 and S2; no rubs, murmurs, or gallops ABDOMEN: Abdomen soft, non-tender, BS normal, No masses or organomegaly EXTREMITIES: b/l LE generalized edema. B/l foot charcot deformities. 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 R plantar superficial wound. L foot surgical wound with granulation tissue present, to Veraflo VAC dressing, serous drng NEURO: diminished sensation b/l feet to level of mid-ruiz. Diminished sensation to b/l palms. Cranial nerves II-XII intact PULSES: 2+ radial, 2+ carotid Lines, Drains, and Airways Line Peripheral 09/01/18 1626 Short Right Antecubital 20 Gauge 1 day Reviewed lines, drains, AND airways. Need to be continued peripheral IV Medications: Reviewed Diagnostic tests reviewed: Most recent labs Recent Labs 09/02/18 0711 09/01/18 0621 08/31/18 0557 WBC 10.61 10.50 10.89 RBC 4.11 3.79* 3.67* HB 11.7 10.8* 10.4* HCT 36.5 33.9* 32.9* PLT 374 342 314 MCV 88.8 89.4 89.6 MCH 28.5 28.5 28.3 MPV 10.5 10.6 10.6 ABSNEUT 8.14* 7.79* 7.90* NEUTP 76.7 74.2 72.5 LYMPHP 15.1 16.2 17.4 MONOP 6.3 7.3 7.4 EODINP 1.6 1.8 2.1 Recent Labs 09/02/18 0711 09/01/18 0621 08/31/18 0557 GLUC 144* 298* 253* NA 139 133* 137 K 4.4 4.9 4.8 CHLOR 100 95* 99 CO2 26 23 26 CREAT 0.92 0.98* 0.86 BUN 17 19 16 ANION 13 15 12 CA 9.5 9.1 9.1 TPROT 7.6 7.2 6.7 ALB 4.0 3.4* 3.3* TBILI 0.2 0.2 <0.2* ALKPHOS 94 89 85 AST 39* 43* 62* ALT 59* 63* 68* Most recent labs CARE COORDINATION: Diony Carrillo is a 53 year-old female with PMH significant for uncontrolled DM2 (HgbA1c 12.2%), diabetic neuropathy, s/p R fifth ray amputation, Charcot deformities b/l, medical non-compliance, hyperlipidemia, restless leg syndrome, who presented as a transfer from [facility] for further management of b/l diabetic foot ulcers. History obtained from patient, outside records, Epic review. The patient is followed in [place], [place] by Podiatry, Dr. Allen, for b/l foot ulcers. On 08/18 pt seen in office with Dr. Allen and noted to have new b/l ulcers. Per Dr. Allen's documentation, pt had presented to OSH the day prior 08/17 with pain to b/l feet and complaint of ulcerations for ~ 2 weeks. She was given antibiotics and d/c. Per Dr. Allen's documentation on 08/18 office visit: Full thickness debridement of b/l foot ulceration thru dermis, epidermis, subcutaneous tissue was performed with tissue nippers and 15 blade. Wound culture was sent of left foot given vinicius-wound erythema. There is no fluctuance or drainage present. She is on doxycycline. She iwll continue. Will monitor culture results. She was placed in boot with peg assisted offloading, wheelchair, and advised to complete daily dressing changes with silvercel. She was advised to return 08/22 for follow-up. On 08/22, L foot ulcer with concern for abscess, referred for admission to [facility]. Cultures from 08/18 grew GPC, GBS. On admission 08/22 she was placed on IV vanco, levaquin, flagyl. MRI L foot 08/22 without reported evidence of OM. 08/23 she underwent IANDD, bone biopsy. 08/23 cultures with MSSA, GBS, bone bx preliminary was negative. Antibiotic regimen tailored to cefepime and flagyl and thereafter modified to oral regimen of bactrim/flagyl/keflex. Bactrim and flagyl were d/c after pt experienced N/V. She was continued on keflex (course to be completed 09/02/18), wound VAC to L foot, and discharged 08/25 to SNF where she was to be followed by her Pharmacy Operations Specialist. Repeat XR L foot with no sign of infection. XR R foot with new metatarsal lucency. 08/29/2018 MRI right foot with right foot plantar abscess, Dr. Allen recommended transfer to [facility]. The patient was HDS and afebrile on admission to [facility]. Podiatry and ID were consulted. ASSESSMENT AND PLAN Assessment AND Plan, all Hosp Problems Active Hospital Problems as of 09/03/2018 Noted - Resolved Hospital Wound infection 08/30/2018 - Present Current Assessment AND Plan Presented as a transfer from [facility] for further management of b/l diabetic foot ulcers. Followed in [place], [place] by Podiatry, Dr. Allen 08/18 pt seen in office with Dr. Allen and noted to have new b/l ulcers. Pt had presented to OSH the day prior 08/17 with pain to b/l feet and complaint of ulcerations for ~ 2 weeks. She was given antibiotics and d/c. Per Dr. Allen's documentation on 08/18 office visit: Full thickness debridement of b/l foot ulceration thru dermis, epidermis, subcutaneous tissue was performed with tissue nippers and 15 blade. Wound culture was sent of left foot given vinicius-wound erythema. There is no fluctuance or drainage present. She is on doxycycline. She iwll continue. Will monitor culture results. She was placed in boot with peg assisted offloading, wheelchair, and advised to complete daily dressing changes with silvercel. She was advised to return 08/22 for follow-up. On 08/22, L foot ulcer with concern for abscess, referred for admission to [facility]. Cultures from 08/18 grew GPC, GBS. On admission 08/22 she was placed on IV vanco, levaquin, flagyl. MRI L foot 08/22 without reported evidence of OM. 08/23 she underwent IANDD, bone biopsy. 08/23 cultures with MSSA, GBS, bone bx preliminary was negative. Antibiotic regimen tailored to cefepime and flagyl and thereafter modified to oral regimen of bactrim/flagyl/keflex. Bactrim and flagyl were d/c after pt experienced N/V. She was continued on keflex (course to be completed 09/02/18), wound VAC to L foot, and discharged 08/25 to SNF where she was to be followed by her Pharmacy Operations Specialist. Repeat XR L foot with no sign of infection. XR R foot with new metatarsal lucency. 08/29/2018 MRI right foot with right foot plantar abscess Dr. Allen recommended transfer to [facility] Pt HDS and afebrile on arrival to [facility] Plan: Podiatry and ID following Outside imaging uploaded, request to Radiology for 2nd read, spoke with [id number], non-specific fluid collection at 5th metatarsal stump; Rad communicated with Pod as well Per Podiatry: due to lack of any signs of infection we will hold off on deep debridement at this time L foot to Veraflo VAC dressing, appreciate discharge wound care instructions. coordinate with SNF on Tuesday to assess their ability to provide Veraflo dressing, and if unable contact Podiatry on-call Per ID, may complete additional 4 days of PO keflex to complete 2-week course NWB for now, may pivot R heel Elevate b/l LE PT/OT Will return to SNF Uncontrolled type 2 diabetes with neuropathy (HCC) 05/23/2015 - Present Current Assessment AND Plan IDDM, home regimen lantus 30 units and humalog 15u/meal HgbA1c 12.2% Non-compliant with diet Plan: Lantus 30 units AM, 30 units hs humalog 15units prandial SSI Hypoglycemia protocol Carb-controlled diet Diabetic polyneuropathy associated with type 2 diabetes mellitus (HCC) 06/02/2007 - Present Current Assessment AND Plan Polyneuropathy in uncontrolled DM Diminished sensation in stocking/glove pattern Plan: Continue neurontin 800mg TID Charcot foot due to diabetes mellitus (HCC) 06/21/2018 - Present Hyperlipidemia 08/30/2018 - Present Current Assessment AND Plan Continue crestor Restless legs syndrome (RLS) 06/02/2007 - Present Current Assessment AND Plan Continue requip Blurry vision 08/31/2018 - Present Current Assessment AND Plan Pt reports today 08/31 b/l blurry vision x 4 days No eye pain, drainage, itching Plan: Coordinate evaluation with ophthal S/p avastin injection 09/01 C/o worsening pain today OU, Ophthalmology contacted Glucose control as above Diarrhea 09/02/2018 - Present Current Assessment AND Plan Diarrhea overnight, described as watery Reports history of C diff Recent antibiotic use and hospital/SNF admissions Plan: Cdiff negative Simethicone for GI upset culturelle initiated Medication and Non-Pharmacologic VTE Prophylaxis/Anticoagulants 08/30/18 1345 pneumatic compression stockings (tx,ks) VTE Prophylaxis: VTE prophylaxis appropriate Plan of care discussed with: Attending, Patient and RN SIGNATURE: Dinorah Bermudez APRN.CNP PATIENT NAME: Diony Carrillo DATE: September 03, 2018 TIME: 12:01 PM PAGER/CONTACT #: [phone] PLAN OF CARE Observed: 09/03/2018 Status: COMPLETED Source: [place] 9:22 AM [facility] [place] REPOSITORY HNO ID: [id number] Author: Eileen Merritt DPM Service: Podiatry Author Type: Resident Type: Plan of Care Filed: 09/03/2018 9:25 AM Note Text: Right foot dressing changed today with betadine, restore silver, gauze, kerlix. No signs of infection to right foot. Pt is okay to be discharged from a podiatry standpoint. Please page [phone] if questions about getting veraflo vac vs. Continuous vac to facility. DISCHARGE INSTRUCTIONS: - Follow up appointment: Pt will follow with Dr. Allen at rehab facility - Weight bearing status: Non-weightbearing to the Left foot, heel WB for transfers to right foot with the assistance of crutches, walker. - Wound care: Dressings need to remain clean and dry. Recommend sponge bath or cast protector. - Home wound VAC instructions for HHC/SNF. - VAC changes every 48-72hrs. - Apply adhesive drape to wound edges to window the wound. Next cut black foam to size (should be slightly smaller than wound bed) and place in wound bed. Then apply adhesive drape over top of black foam to create a seal. Next cut hole in adhesive drape overlying black foam to the size of the suction hole of TRAC pad. Do not place TRAC pad on healthy skin (may have to bridge foam if depending on location). - VAC settings to 125 mmHg continuous, 8ml Dakins soak 10 mins every 3.5 hours. - Please place padding (4x4s, ABDs, or some kind of equivalent) under hose as well as to anterior ankle and posterior heel to prevent rubbing and pressure wounds prior to wrapping with Kerlix and MYLA. Eileen Merritt DPM, PGY-1 Please page #[phone] on weekends and after 5PM September 03, 2018 9:24 AM [facility] OCCULT BLD Collected: 09/02/2018 Status: F Source: [facility] 4:23 PM [facility] REPOSITORY TYPE CODE TESTS RESULT OUT OF RANGE REFERENCE UNITS LAB IFO Negative Specimen Abnormal Immuno rejected because Alert FOB a stool sample was received in a container. The test can only be performed if stool is placed into the IFOBT collection vial ([place]eballos no. [id number]) at the time of collection. Submit vial to the laboratory. Result Comment: Account Credited Performed By: #### IFOBT #### [facility] [address] [place], [place] [address] CONSULT PROG Observed: 09/02/2018 Status: COMPLETED Source: [place] 1:10 PM [facility] REPOSITORY HNO ID: [id number] Author: Eileen Merritt DPM Service: Podiatry Author Type: Resident Type: Consult Progress Note Filed: 09/02/2018 1:15 PM Note Text: PODIATRIC MEDICINE AND SURGERY CONSULT PROGRESS NOTE PODIATRY STAFF [employer] PROFESSOR: Sarah Simons DPM Please first [place] [phone] with questions/concerns. FOLLOW UP: Left foot open wound, right foot open wound ASSESSMENT: 53 year old female with past medical history significant for uncontrolled DM2 (HgbA1c 12.2%), diabetic neuropathy, s/p R fifth ray amputation, Charcot deformities b/l, hyperlipidemia, restless leg syndrome with wound to b/l feet . PLAN AND RECOMMENDATIONS: - Pt is okay to be discharged back to SNF from a podiatry standpoint. - Spoke with [facility] radiology fellow, read of right foot MRI shoes nonspecific fluid collection with wall enhancement in subcutaneous tissue right above ulcer. On exam ulcer is very superficial, can not exude any pus, ulcer is not draining, warm, cellulitic, or painful. Fluid collection is abscess vs. adventicial bursa, due to lack of any signs of infection we will hold off on deep debridement at this time. Can resume antibiotics for left foot that pt was getting at OSH. - Veraflo wound vac with dakins irrigation applied to left foot changed today. Right foot dressed with DSD. Dressing should remain clean, dry, and intact. Podiatry will perform dressing changes. - Heel WB for transfers to Right foot, NWB to left foot. Ok to use walker, crutches, or other assistive device(s) to use the restroom or for Physical Therapy. - Elevate LLE at or above the level of the heart. - Antibiotics per ID recommendations. Wound culture taken at OSH. - Pain management per primary team. - Podiatry will continue to follow. DISCHARGE INSTRUCTIONS: - Follow up appointment: Pt will follow with Dr. Allen at rehab facility - Weight bearing status: Non-weightbearing to the L foot heel WB for transfers to right foot with the assistance of crutches, walker. - Wound care: Dressings need to remain clean and dry. Recommend sponge bath or cast protector until first follow up appointment. - Home wound VAC instructions for [facility]/SNF. - VAC changes every 48-72hrs. - Apply adhesive drape to wound edges to window the wound. Next cut black foam to size (should be slightly smaller than wound bed) and place in wound bed. Then apply adhesive drape over top of black foam to create a seal. Next cut hole in adhesive drape overlying black foam to the size of the suction hole of TRAC pad. Do not place TRAC pad on healthy skin (may have to bridge foam if depending on location). - VAC settings to 125 mmHg continuous, 8ml Dakins soak 10 mins every 3.5 hours. - Please place padding (4x4s, ABDs, or some kind of equivalent) under hose as well as to anterior ankle and posterior heel to prevent rubbing and pressure wounds prior to wrapping with Kerlix and MYLA. INTERVAL HISTORY: Afebrile and hemodynamically stable overnight per recorded vital signs. Denies nausea, vomiting, fever, chills, calf pain, chest pain, shortness of breath, or diarrhea. Current hospital medications: oxyCODONE IR 5 mg tab(s) (ROXICODONE) 5 mg ORAL ONCE insulin lispro 15 Units injection (rapid acting) (HumaLOG) 15 Units SUBCUTANEOUS TID w MEALS insulin glargine 20 Units pen (long acting) (LANTUS SOLOSTAR, BASAGLAR KWIKPEN) 20 Units SUBCUTANEOUS AT BEDTIME simethicone, chewable 80 mg tab(s) (MYLICON) 80 mg ORAL QID PRN lactobacillus rhamnosus 10 billion cell (CULTURELLE) capsule 1 capsule ORAL DAILY carboxymethylcellulose sodium 1-2 Drop (CELLUVISC) 1-2 Drop BOTH EYES PRN senna 8.6 mg tab(s) (SENOKOT) 1 tablet ORAL BID NaCl 0.9% 3-5 mL 3-5 mL INTRAVENOUS q 12 H NaCl 0.9% 2-10 mL 2-10 mL INTRAVENOUS q 12 H acetaminophen 650 mg tab(s) (TYLENOL) 650 mg ORAL q 6 H PRN docusate sodium 100 mg cap(s) (COLACE) 100 mg ORAL BID PRN gabapentin 800 mg tab(s) (NEURONTIN) 800 mg ORAL TID promethazine 12.5 mg tab(s) (PHENERGAN) 12.5 mg ORAL q 6 H PRN rosuvastatin 40 mg tab(s) (CRESTOR) 40 mg ORAL DAILY insulin glargine 30 Units pen (long acting) (LANTUS SOLOSTAR, BASAGLAR KWIKPEN) 30 Units SUBCUTANEOUS DAILY (8 AM) oxyCODONE IR 5 mg tab(s) (ROXICODONE) 5 mg ORAL q [address] 20 mg tab(s) (PROTONIX) 20 mg ORAL BEFORE BREAKFAST DAILY ascorbic acid (vitamin C) 500 mg tab(s) (VITAMIN C) 500 mg ORAL BID w MEALS dextrose 40 % 15 g 15 g ORAL PRN glucagon 1 mg injection (GLUCAGEN) 1 mg INTRAMUSCULAR PRN dextrose 50 % 12.5 g injection 12.5 g INTRAVENOUS PRN sodium hypochlorite (Dakin's Half-Strength) 0.25 % in empty bag Total Volume 480 mL topical irrigation 6 mL/hr IRRIGATION CONTINUOUS rOPINIRole 1.5 mg tab(s) (REQUIP) 1.5 mg ORAL BID insulin lispro injection (rapid acting) (HumaLOG) SUBCUTANEOUS w MEALS AND HS REVIEW OF SYSTEMS: As states in interval history. OBJECTIVE: BP (!) 122/45 Pulse 82 Temp 36.8 ?C (98.3 ?F) (Oral) Resp 16 Ht 167.6 cm (5' 6) SpO2 98% BMI 30.18 kg/m? Alert and oriented to person, place, and time. No acute distress. Pedal pulses are palpable. CFT is brisk to the distal toes B/L. Able to actively dorsiflex and plantarflex the B/L foot. B/L dressings are clean, dry, and intact without erythema or lymphangiitis beyond the borders of the dressing. Wound vac in place with adequate pressure maintained. No audible or reported leaks present. Verbal consent obtained prior to obtaining photo. All efforts were made to exclude PHI. LABS: Recent Labs 09/02/18 0711 09/01/18 0621 08/31/18 0557 WBC 10.61 10.50 10.89 HB 11.7 10.8* 10.4* HCT 36.5 33.9* 32.9* PLT 374 342 314 NA 139 133* 137 K 4.4 4.9 4.8 CHLOR 100 95* 99 CO2 26 23 26 CREAT 0.92 0.98* 0.86 BUN 17 19 16 GLUC 144* 298* 253* TPROT 7.6 7.2 6.7 ALB 4.0 3.4* 3.3* CA 9.5 9.1 9.1 ALKPHOS 94 89 85 TBILI 0.2 0.2 <0.2* AST 39* 43* 62* ALT 59* 63* 68* CRP Date Value Ref Range Status 08/30/2018 0.4 <0.9 mg/dL Final WSR Date Value Ref Range Status 08/30/2018 87 (H) 0 - 20 mm/hr Final PT INR Date Value Ref Range Status 08/30/2018 1.0 0.9 - 1.3 Final Comment: Vitamin K Antagonist (VKA) Therapeutic Range: INR 2 to 3 (Target INR of 2.5) Note: For patients treated with VKA drugs, such as warfarin, the [employer] 2012 Guideline recommends a therapeutic INR range of 2 to 3 (target INR of 2.5). This recommendation includes high-risk patients with antiphospholipid syndrome with previous arterial or venous thromboembolism, current-generation mechanical or bioprosthetic aortic heart valve replacement. Note: Patients with mechanical aortic valve replacement and additional risk factors for thromboembolic events (atrial fibrillation, previous thromboembolism, LV dysfunction, hypercoagulable conditions) or an older generation mechanical AVR (i.e., ball in-Cage) or any mechanical MVR should have a INR therapeutic range of 2.5 to 3.5 (target INR of 3). Celso GH, et al. Chest 2012, 141:7S-47S Luda RA, et al. [facility] 2017, 70: 252-289 APTT Date Value Ref Range Status 08/30/2018 25.1 23.0 - 32.4 sec Final Comment: Unfractionated Heparin Therapeutic Ranges: Standard Heparin Nomogram: 53 to 78 seconds (anti-Xa level of 0.3 to 0.7 U/ml) Low Dose/ACS Nomogram: 49 to 67 seconds (anti-Xa level of 0.2 to 0.5 U/ml) Stroke Treatment Nomogram: 49 to 67 seconds (anti-Xa level of 0.2 to 0.5 U/ml) Note: The APTT therapeutic range has been determined for the current lot of laboratory APTT reagent in use throughout the [facility]. Hemoglobin A1C (%) Date Value 08/30/2018 11.7 08/02/2018 12.2 03/03/2017 12.4 11/26/2016 11.2 01/01/2016 11.2 MICROBIOLOGY: IMAGING: VASCULAR STUDIES: Eileen Merritt DPM, PGY-1 Please first [place] [phone] with questions/concerns. September 02, 2018 12:07 PM PROGRESS Observed: 09/02/2018 Status: COMPLETED Source: [place] 11:34 AM [facility] REPOSITORY HNO ID: [id number] Author: Dinorah Bermudez Service: Hospital Medicine Author Type: Nurse Practitioner Type: Progress Notes Filed: 09/02/2018 11:35 AM Note Text: SERVICE DATE: 09/02/2018 SERVICE TIME: 11:35 AM HOSPITAL MEDICINE PROGRESS NOTE NIGHT AND WEEKEND COVERAGE: Days: [phone], please page me for patient issues. Nights: [phone], please page Team GIM 2 - 8th floor: [phone] SUBJECTIVE Interval Events: awake, alert. Reports diarrhea and GI distress overnight. Appetite unaffected, no n/v. Denies fever, chills, chest pain, dyspnea, dizziness. OBJECTIVE BP 111/51 Pulse 71 Temp (Src) 98 (Oral) Resp 16 Ht 5' 6 (1.68m) SpO2 98% Physical Exam Performed: GENERAL: Alert, no distress, cooperative. Obese SKIN: Skin color, texture, turgor normal. HEAD/SINUSES: No significant findings EYES: PERRLA, EOMI LUNGS: Lungs clear to auscultation, Good diaphragmatic excursion CARDIAC: Normal S1 and S2; no rubs, murmurs, or gallops ABDOMEN: Abdomen soft, non-tender, BS normal, No masses or organomegaly EXTREMITIES: b/l LE generalized edema. B/l foot charcot deformities. 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 R plantar superficial wound. L foot surgical wound with granulation tissue present, to Veraflo VAC dressing, serous drng NEURO: diminished sensation b/l feet to level of mid-ruiz. Diminished sensation to b/l palms. Cranial nerves II-XII intact PULSES: 2+ radial, 2+ carotid Lines, Drains, and Airways Line Peripheral 09/01/18 1626 Short Right Antecubital 20 Gauge less than 1 day Reviewed lines, drains, AND airways. Need to be continued peripheral IV Medications: Reviewed Diagnostic tests reviewed: Most recent labs Recent Labs 09/02/18 0711 09/01/18 0621 08/31/18 0557 WBC 10.61 10.50 10.89 RBC 4.11 3.79* 3.67* HB 11.7 10.8* 10.4* HCT 36.5 33.9* 32.9* PLT 374 342 314 MCV 88.8 89.4 89.6 MCH 28.5 28.5 28.3 MPV 10.5 10.6 10.6 ABSNEUT 8.14* 7.79* 7.90* NEUTP 76.7 74.2 72.5 LYMPHP 15.1 16.2 17.4 MONOP 6.3 7.3 7.4 EODINP 1.6 1.8 2.1 Recent Labs 09/02/18 0711 09/01/18 0621 08/31/18 0557 GLUC 144* 298* 253* NA 139 133* 137 K 4.4 4.9 4.8 CHLOR 100 95* 99 CO2 26 23 26 CREAT 0.92 0.98* 0.86 BUN 17 19 16 ANION 13 15 12 CA 9.5 9.1 9.1 TPROT 7.6 7.2 6.7 ALB 4.0 3.4* 3.3* TBILI 0.2 0.2 <0.2* ALKPHOS 94 89 85 AST 39* 43* 62* ALT 59* 63* 68* Most recent labs CARE COORDINATION: Diony Carrillo is a 53 year-old female with PMH significant for uncontrolled DM2 (HgbA1c 12.2%), diabetic neuropathy, s/p R fifth ray amputation, Charcot deformities b/l, medical non-compliance, hyperlipidemia, restless leg syndrome, who presented as a transfer from [facility] for further management of b/l diabetic foot ulcers. History obtained from patient, outside records, Epic review. The patient is followed in [place], [place] by Podiatry, Dr. Allen, for b/l foot ulcers. On 08/18 pt seen in office with Dr. Allen and noted to have new b/l ulcers. Per Dr. Allen's documentation, pt had presented to OSH the day prior 08/17 with pain to b/l feet and complaint of ulcerations for ~ 2 weeks. She was given antibiotics and d/c. Per Dr. Allen's documentation on 08/18 office visit: Full thickness debridement of b/l foot ulceration thru dermis, epidermis, subcutaneous tissue was performed with tissue nippers and 15 blade. Wound culture was sent of left foot given vinicius-wound erythema. There is no fluctuance or drainage present. She is on doxycycline. She iwll continue. Will monitor culture results. She was placed in boot with peg assisted offloading, wheelchair, and advised to complete daily dressing changes with silvercel. She was advised to return 08/22 for follow-up. On 08/22, L foot ulcer with concern for abscess, referred for admission to [facility]. Cultures from 08/18 grew GPC, GBS. On admission 08/22 she was placed on IV vanco, levaquin, flagyl. MRI L foot 08/22 without reported evidence of OM. 08/23 she underwent IANDD, bone biopsy. 08/23 cultures with MSSA, GBS, bone bx preliminary was negative. Antibiotic regimen tailored to cefepime and flagyl and thereafter modified to oral regimen of bactrim/flagyl/keflex. Bactrim and flagyl were d/c after pt experienced N/V. She was continued on keflex (course to be completed 09/02/18), wound VAC to L foot, and discharged 08/25 to SNF where she was to be followed by her Pharmacy Operations Specialist. Repeat XR L foot with no sign of infection. XR R foot with new metatarsal lucency. 08/29/2018 MRI right foot with right foot plantar abscess, Dr. Allen recommended transfer to [facility]. The patient was HDS and afebrile on admission to [facility]. Podiatry and ID were consulted. ASSESSMENT AND PLAN Assessment AND Plan, all Hosp Problems Active Hospital Problems as of 09/02/2018 Noted - Resolved Hospital Wound infection 08/30/2018 - Present Current Assessment AND Plan Presented as a transfer from [facility] for further management of b/l diabetic foot ulcers. Followed in [place], [place] by Podiatry, Dr. Allen 08/18 pt seen in office with Dr. Allen and noted to have new b/l ulcers. Pt had presented to OSH the day prior 08/17 with pain to b/l feet and complaint of ulcerations for ~ 2 weeks. She was given antibiotics and d/c. Per Dr. Allen's documentation on 08/18 office visit: Full thickness debridement of b/l foot ulceration thru dermis, epidermis, subcutaneous tissue was performed with tissue nippers and 15 blade. Wound culture was sent of left foot given vinicius-wound erythema. There is no fluctuance or drainage present. She is on doxycycline. She iwll continue. Will monitor culture results. She was placed in boot with peg assisted offloading, wheelchair, and advised to complete daily dressing changes with silvercel. She was advised to return 08/22 for follow-up. On 08/22, L foot ulcer with concern for abscess, referred for admission to [facility]. Cultures from 08/18 grew GPC, GBS. On admission 08/22 she was placed on IV vanco, levaquin, flagyl. MRI L foot 08/22 without reported evidence of OM. 08/23 she underwent IANDD, bone biopsy. 08/23 cultures with MSSA, GBS, bone bx preliminary was negative. Antibiotic regimen tailored to cefepime and flagyl and thereafter modified to oral regimen of bactrim/flagyl/keflex. Bactrim and flagyl were d/c after pt experienced N/V. She was continued on keflex (course to be completed 09/02/18), wound VAC to L foot, and discharged 08/25 to SNF where she was to be followed by her Pharmacy Operations Specialist. Repeat XR L foot with no sign of infection. XR R foot with new metatarsal lucency. 08/29/2018 MRI right foot with right foot plantar abscess Dr. Allen recommended transfer to [facility] Pt HDS and afebrile on arrival to F Plan: Podiatry and ID following Outside imaging uploaded, request to Radiology for 2nd read, spoke with [id number], non-specific fluid collection at 5th metatarsal stump; Rad communicated with Pod as well Per Podiatry: due to lack of any signs of infection we will hold off on deep debridement at this time L foot to Veraflo VAC dressing Per ID, no role for antibiotics at present NWB for now, may pivot R heel Elevate b/l LE PT/OT Will return to SNF Uncontrolled type 2 diabetes with neuropathy (HCC) 05/23/2015 - Present Current Assessment AND Plan IDDM, home regimen lantus 30 units and humalog 15u/meal HgbA1c 12.2% Non-compliant with diet Plan: Lantus 30 units AM, 20 units hs humalog 15units prandial SSI Hypoglycemia protocol Carb-controlled diet Diabetic polyneuropathy associated with type 2 diabetes mellitus (HCC) 06/02/2007 - Present Current Assessment AND Plan Polyneuropathy in uncontrolled DM Diminished sensation in stocking/glove pattern Plan: Continue neurontin 800mg TID Charcot foot due to diabetes mellitus (HCC) 06/21/2018 - Present Hyperlipidemia 08/30/2018 - Present Current Assessment AND Plan Continue crestor Restless legs syndrome (RLS) 06/02/2007 - Present Current Assessment AND Plan Continue requip Blurry vision 08/31/2018 - Present Current Assessment AND Plan Pt reports today 08/31 b/l blurry vision x 4 days No eye pain, drainage, itching Plan: Coordinate evaluation with ophthal Glucose control as above Diarrhea 09/02/2018 - Present Current Assessment AND Plan Diarrhea overnight, described as watery Reports history of C diff Recent antibiotic use and hospital/SNF admissions Plan: Collect Cdiff sample Simethicone for GI upset culturelle Medication and Non-Pharmacologic VTE Prophylaxis/Anticoagulants 08/30/18 1345 pneumatic compression stockings (tx,ks) VTE Prophylaxis: VTE prophylaxis appropriate Plan of care discussed with: Attending, Patient, Case Management, RN and Consultants: Podiatry SIGNATURE: Dinorah Bermudez APRN.CNP PATIENT NAME: Diony Carrillo DATE: September 02, 2018 TIME: 11:35 AM PAGER/CONTACT #: [phone] CONSULT PROG Observed: 09/02/2018 Status: COMPLETED Source: [place] 9:21 AM [facility] REPOSITORY [facility] ID: [id number] Author: Courtney Mcclellan Service: Infectious Disease Author Type: Physician Type: Consult Progress Note Filed: 09/02/2018 2:43 PM Note Text: INFECTIOUS DISEASE BONE AND JOINT SERVICE PROGRESS NOTE Date: September 02, 2018 Patient Name: Diony Carrillo Interval events: mild diarrhea. MEDICATIONS Medications reviewed. Current hospital medications: oxyCODONE IR 5 mg tab(s) (ROXICODONE) 5 mg ORAL ONCE insulin lispro 15 Units injection (rapid acting) (HumaLOG) 15 Units SUBCUTANEOUS TID w MEALS insulin glargine 20 Units pen (long acting) (LANTUS SOLOSTAR, BASAGLAR KWIKPEN) 20 Units SUBCUTANEOUS AT BEDTIME carboxymethylcellulose sodium 1-2 Drop (CELLUVISC) 1-2 Drop BOTH EYES PRN senna 8.6 mg tab(s) (SENOKOT) 1 tablet ORAL BID NaCl 0.9% 3-5 mL 3-5 mL INTRAVENOUS q 12 H NaCl 0.9% 2-10 mL 2-10 mL INTRAVENOUS q 12 H acetaminophen 650 mg tab(s) (TYLENOL) 650 mg ORAL q 6 H PRN docusate sodium 100 mg cap(s) (COLACE) 100 mg ORAL BID PRN gabapentin 800 mg tab(s) (NEURONTIN) 800 mg ORAL TID promethazine 12.5 mg tab(s) (PHENERGAN) 12.5 mg ORAL q 6 H PRN rosuvastatin 40 mg tab(s) (CRESTOR) 40 mg ORAL DAILY insulin glargine 30 Units pen (long acting) (LANTUS SOLOSTAR, BASAGLAR KWIKPEN) 30 Units SUBCUTANEOUS DAILY (8 AM) oxyCODONE IR 5 mg tab(s) (ROXICODONE) 5 mg ORAL q [address] 20 mg tab(s) (PROTONIX) 20 mg ORAL BEFORE BREAKFAST DAILY ascorbic acid (vitamin C) 500 mg tab(s) (VITAMIN C) 500 mg ORAL BID w MEALS dextrose 40 % 15 g 15 g ORAL PRN glucagon 1 mg injection (GLUCAGEN) 1 mg INTRAMUSCULAR PRN dextrose 50 % 12.5 g injection 12.5 g INTRAVENOUS PRN sodium hypochlorite (Dakin's Half-Strength) 0.25 % in empty bag Total Volume 480 mL topical irrigation 6 mL/hr IRRIGATION CONTINUOUS rOPINIRole 1.5 mg tab(s) (REQUIP) 1.5 mg ORAL BID insulin lispro injection (rapid acting) (HumaLOG) SUBCUTANEOUS w MEALS AND HS EXAMINATION: Vital signs: BP 111/51 Pulse 71 Temp 36.7 ?C (98 ?F) (Oral) Resp 16 Ht 167.6 cm (5' 6) SpO2 98% BMI 30.18 kg/m? Temp (24hrs), Av.7 ?C (98 ?F), Min:36.4 ?C (97.5 ?F), Max:36.8 ?C (98.3 ?F) Constitutional: Looks well. Oriented to time, place and person. Skin: No rashes. Affected joint: vac on left lateral foot. Right foot superficial wound. Not evidence of infection. Others: Vascular access sites appear fine. peripheral LABORATORY DATA: WBC (k/uL) Date Value 09/02/2018 10.61 09/01/2018 10.50 08/31/2018 10.89 Hemoglobin (g/dL) Date Value 09/02/2018 11.7 09/01/2018 10.8 08/31/2018 10.4 Platelet Count (k/uL) Date Value 09/02/2018 374 09/01/2018 342 08/31/2018 314 Creatinine (mg/dL) Date Value 09/02/2018 0.92 09/01/2018 0.98 08/31/2018 0.86 Vancomycin Pre (no units) Date Value 08/13/2014 6.2 08/07/2014 15.9 07/22/2014 9.3 MICROBIOLOGY DATA: 08/23/18 at [facility] left foot abscess: MSSA and group B strep ( susc to all, not clinda) ? 5th metatarsal bone bx- no growth ? ? RADIOLOGY DATA: MRI second read pending ? ASSESSMENT: Ms. Carrillo is a 53 year old female with PMhx significant for DM2, charcot neuroarthropathy, peripheral neuropathy, DJD, tranferred from OSH for management of DFI. 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 Treated with bactrim, flagyl and keflex but was nauseated on these. Repeat imaging 08/29 with nonspecific changes. Clinical picture not consistent with infection on the right. . ? ? RECOMMENDATIONS: OK to restart keflex 500 q 6 hours for another week for the left foot for another 4 days to complete 2 weeks. I will sign off Signature: Courtney Mcclellan MD Pager: [phone] Date and Time of Service: September 02, 2018 C DIFFICILE PCR Collected: 09/02/2018 Status: F Source: [place] 7:35 AM [facility] REPOSITORY TYPE CODE TESTS RESULT OUT OF REFERENCE UNITS RANGE LAB CDFRES C difficile PCR Negative for C. difficile toxin by PCR Performed By: #### CDPCR #### [facility] [employer] [facility] [place] [address] CBC AND DIFFERENTIAL Collected: 09/02/2018 Status: F Source: [place] 7:11 AM [facility] REPOSITORY TYPE CODE TESTS RESULT OUT OF REFERENCE UNITS RANGE LAB WBC 3.70-11.00 k/uL WBC 10.61 LAB RBC 3.90-5.20 m/uL RBC 4.11 LAB HGB 11.5-15.5 g/dL Hemoglobin 11.7 LAB HCT 36.0-46.0 % Hematocrit 36.5 LAB MCV 80.0-100.0 fL MCV 88.8 LAB MCH 26.0-34.0 pG MCH 28.5 LAB MCHC 30.5-36.0 g/dL MCHC 32.1 LAB RDWCV 11.5-15.0 % RDW-CV 13.2 LAB PLTCT 150-400 k/uL Platelet Count 374 LAB MPV 9.0-12.7 fL MPV 10.5 LAB ANEUT % Neut% 76.7 LAB AANEUT 1.45-7.50 k/uL Abs Neut High 8.14 LAB ALYMP % Lymph% 15.1 LAB AALYMP 1.00-4.00 k/uL Abs Lymph 1.60 LAB AMONO % [place]% 6.3 LAB AAMONO <0.87 k/uL Abs [place] 0.67 LAB AEOS % Eosin% 1.6 LAB AAEOS <0.46 k/uL Abs Eosin 0.17 LAB ABASO % Baso% 0.3 LAB AABASO <0.11 k/uL Abs Baso 0.03 LAB AUNRBC 0 /100 WBC NRBCs 0.0 LAB ABNRBC <0.01 k/uL Absolute nRBC <0.01 LAB DTYP DTYPE Auto Diff Performed By: #### CBCDIF, CMP #### [facility] [employer] [address] [place], [place] [address] COMP METABOLIC PANEL Collected: 09/02/2018 Status: F Source: [place] 7:11 AM [facility] REPOSITORY TYPE CODE TESTS RESULT OUT OF REFERENCE UNITS RANGE LAB TP 6.3-8.0 g/dL Protein, Total 7.6 LAB ALB 3.9-4.9 g/dL Albumin 4.0 LAB CA 8.5-10.2 mg/dL Calcium, Total 9.5 LAB TBIL 0.2-1.3 mg/dL Bilirubin, Total 0.2 LAB ALKP 34-123 U/L Alkaline Phosphatase 94 LAB AST 13-35 U/L AST High 39 LAB GLU 74-99 mg/dL Glucose High 144 Result Comment: The [place] Diabetes [employer] (ADA) provides guidance for cutoff values for fasting glucose and random glucose. The ADA defines fasting as no caloric intake for at least 8 hours. Fas ting plasma glucose results between 100 to 125 mg/dL indicate increased risk for diabetes (prediabetes). Fasting plasma glucose results greater than or equal to 126 mg/dL meet the criteria for diagnosis of diabetes. In the absence of unequivocal hyperglycemia, results should be confirmed by repeat testing. In a patient with classic symptoms of hyperglycemia or hyperglycemic crisis, random plasma glucose results greater than or equal to 200 mg/dL meet the criteria for diagnosis of diabetes. Reference: Standards of Medical Care in Diabetes 2016, [place] [employer] Association. Diabetes Care. 2016.39(Suppl 1). LAB BUN 7-21 mg/dL BUN 17 LAB CRET 0.58-0.96 mg/dL Creatinine 0.92 LAB NA 136-144 mmol/L Sodium 139 LAB K 3.7-5.1 mmol/L Potassium 4.4 LAB CL 97-105 mmol/L Chloride 100 LAB CO2 22-30 mmol/L CO2 26 LAB AGAP 9-18 mmol/L Anion Gap 13 LAB ALT 7-38 U/L ALT High 59 LAB GFRAA eGFR- Amer. >60 LAB GFRNAA . eGFR-All Other Races >60 Result Comment: eGFR (Estimated GFR) Units of measure: mL/min/1.73 meters squared eGFR is derived from the reexpressed MDRD Study equation using the following parameters: serum creatinine, age, gender and race. The creatinine assay has been calibrated to be traceable to IDMS. An eGFR <60 mL/min/1.73m2 for >3 months is consistent with chronic kidney disease. Refer to KDOQI guidelines for clinical interpretation. In patients with unstable renal function, e.g. those with acute kidney injury, the eGFR may not accurately reflect actual GFR. Performed By: #### CBCDIF, CMP #### [facility] [address] [place], [place] [address] NURSING PROG Observed: 09/02/2018 Status: COMPLETED Source: [place] 6:17 AM [facility] REPOSITORY HNO ID: [id number] Author: Emery Tejada (Rn) KELSIE Ta Service: (none) Author Type: Registered Nurse Type: Nursing Progress Note Filed: 09/02/2018 6:18 AM Note Text: Nursing Progress Note Patient Name: Diony Carrillo Patient Location: [place] [address] Daily Note:09/02/2018 @ 0532 c/o diarrhea and cramp like abdominal pain GIM paged @ 0617 pt still c/o c/o diarrhea and cramp like abdominal pain AND diarrhea GIM paged again This note was completed by: Emery Ta RN THERAPY NT Observed: 09/01/2018 Status: COMPLETED Source: [place] 4:26 PM [facility] REPOSITORY HNO ID: [id number] Author: Funmi SelfPtRashaun Cha Service: Physical Therapy Author Type: Physical Therapist Type: Therapy (PT/OT/Speech/Resp) Filed: 09/01/2018 5:08 PM Note Text: Physical Therapy Evaluation SERVICE DATE: 09/01/2018 SERVICE TIME: 1616 to 1642 ROOM: [place] [address] Recommended Discharge Disposition: Subacute/SNF Recommended Discharge Disposition Comments: For ongoing therapy and wound care needs Justification For Post Acute Needs: Anticipate that patient will require daily (5x/wk) skilled therapy in a post-acute facility setting at the time of acute hospital discharge Anticipated Discharge Needs: Undetermined PT Recommendations to Nursing: Transfer to/from chair;With assist of 1 person PT 6 Clicks Score: 14 Precautions/Activity Restrictions: Fall Risk;Weight Bearing Restrictions Extremity With Weight Bearing Restricted: Right Lower Extremity;Left Lower Extremity Left Lower Extremity Weight Bearing Status: NWB Right Lower Extremity Weight Bearing Status: Heel Weight Bearing ASSESSMENT : Patient admitted with possible abscess to R foot, has WB restrictions per podiatry of R LE heel WB, and LLE NWB, currently with VAC dressing L foot; From PT perspective presents with impaired Range of Motion, Strength/Tone, Pain, Sensation, Balance, Functional Mobility, Activity Tolerance and skin integrity impacting the ability to function without assistance from caregivers. Patient requires CGA with transfers to via modified stand pivot transfer. Does not have shoe to assist with heel WB (believes it is at facility), and had difficulty maintaining weight only on heel of RLE. Until shoe is available, will be limited to transfers only, may progress to more standing/minimal gait with shoe- will need to assess. Patient reports she was only home 5 days prior to admission to OSH 2 wks ago, and had difficulty managing self care from . Pt requires skilled therapy to address current functional limitations and impairments as well as to progress activities within safe limits. Recommend SA/SNF placement at d/c to address patient's functional impairments. Patient Disposition at Start of Session: Supine in Bed Patient Disposition at End of Session: Supine in Bed Tolerated Full Session Physical Therapy Problem List: Education Deficit;Pain;Safety Deficits;Decreased Strength;Functional Mobility Impairment;Sensory Deficit;Decreased Skin Integrity Patient /Caregiver Goals: Care For Self (Heal wounds) Goals for Plan of Care: Able to perform HEP with: Independent Transfer sit to/from stand with: Minimal Assistance (with appropriate foot wear to allow R heel WB, L NWB) Transfer: Bed to wheelchair with mod IND maintaining R heel WB and L NWB Propel wheelchair with: Independent Distance: 300 ft ROM: Improve ankle ROM to +10 degrees to allow improved ability to heel weight bear Goal: Improve activity tolerance to tolerate > 45 min functional activity Rehab Potential: Good PLAN: Treatment Frequency (times per week): 2 Current admission Treatment Interventions: Education;Functional Mobility Training;Strengthening;Balance Training;Neuromuscular Re-education;Joint Mobility;Wheelchair Management and Training Plan of Care developed with: Patient TREATMENT INTERVENTIONS: Therapy Diagnosis: Reduced mobility-other Interventions Provided: Evaluation;Therapeutic Activity (61685) $ Evaluation-Low (51687) Billed Units: 1 unit Therapeutic Activity (93957) Treatment Minutes: 8 1 unit Skilled Intervention(s): Instructed in WB status, Provided instruction in safety, sequencing with transfer bed to , wc to/from toilet, wc to bed. Verbal cues for heel WB on RLE and demonstration of increased knee extension to keep weight back on heel with transfers. Instructed in LE AROM exercises-declined to perform at this time due to pain. Educated in benefits of activity, complications of bedrest/inactivity, progression of mobility, d/c recommendations and PT POC while in hospital. Total Timed Code Treatment Minutes: 8 Total Treatment Time (minutes): 28 FUNCTIONAL G CODE: PT 6 Clicks Score: 14 (09/01/18 161) Mobility: Walking and Moving Around Current Status (G8978): CL (09/01/18 161) Mobility: Walking and Moving Around Goal Status (G8979): CK (09/01/181615) Based on clinical assessment and the score on the 6 Clicks Functional Assessment Tool, the G code and corresponding severity modifiers are documented above. SUBJECTIVE: Current Hospital Course: Chart reviewed; Per EPIC: 53 year old female who was admitted for possible abscess to right foot Patient was seen in office 08/[address] Allen and noted to have new b/l ulcers. Patient had presented to OSH the day prior 08/17 with pain to b/l feet and complaint of ulcerations for ~ 2 weeks. She was given antibiotics and d/c. Wound was debrided in office 08/18 and cultures were taken and placed in offloading shoe. She was advised to return 08/22 for follow-up. On 08/22, L foot ulcer with concern for abscess, referred for admission to [facility]. On admission 08/22 she was placed on IV vanco, levaquin, flagyl. MRI L foot 08/22 without reported evidence of OM. 08/23 she underwent IANDD, bone biopsy. 08/23 cultures with MSSA, GBS, bone bx preliminary was negative. Patient was given bactrim, flagyl and keflex. Patient was nauseated on bactrim and flagyl and they were discontinued. ?Patient was put on a wound vac for her left foot while at [facility]. Patient was discharged to SNF 08/25, xrays b/l ordered, L foot with no signs osseous signs of infection. Xray R foot showed metatarsal lucency. MRI taken on 08/29 revealed right foot plantar abscess Relevant Past Medical History: uncontrolled DM2 (HgbA1c 12.2%), diabetic neuropathy, s/p R fifth ray amputation, Charcot deformities b/l, hyperlipidemia, restless leg syndrome with wound to b/l feet . Patient Report: It's been 2 weeks since I've been in the hospital Home Environment Patient Lives With: Self/Alone (spouse in [place]) Assistance Available: None Entry To Home: Stairs Number Of Stairs Into Home: 3 Number Of Stairs To Bed/Bath: 0 Equipment Owned: Commode-Bedside;Wheelchair;Rollator;Wheeled Walker Prior Functional Level: Required Assistance Prior Functional Level Comments: At SNF prior to admission; only home 5 days before hospital admission; able to transfer into , but was having difficulty managing tasks from . OBJECTIVE: CURRENT FUNCTIONAL STATUS: Current Functional Mobility Assist Level Additional Information Rolling Supine to Sit Modified Independent (HOB elevated) Sit to Supine Modified Independent (HOB elevated) Scooting Supervision Sit to Stand (NT d/t WB restrictions) Stand to Sit Bed to Chair Contact Guard Assistance Bed To Chair Transfer Type: (modified stand pivot) Toilet/Commode Contact Guard Assistance Gait (unable d/t WB restrictions) Stairs Curb Step Car Transfer Wheelchair Mobility: Manual Wheelchair Propulsion Manual Wheelchair Propulsion: Minimal Assistance (with turns in bathroom due to tight space) Distance Wheelchair Propelled (feet): 20 ft Please see discipline specific clinical documentation flowsheet for complete details for this therapy evaluation/treatment. SIGNATURE: Funmi Cha PT PATIENT NAME: Diony Carrillo DATE: September 01, 2018 TIME: 4:26 PM NUTRITION Observed: 09/01/2018 Status: COMPLETED Source: [place] 4:25 PM [facility] REPOSITORY [facility] ID: [id number] Author: Jerri Hernandez Service: Nutrition Therapy Author Type: Registered Dietitian Type: Nutrition Filed: 09/01/2018 4:41 PM Note Text: NUTRITION THERAPY SCREENING NOTE SERVICE DATE: 09/01/2018 SERVICE TIME: 1420 NUTRITION CARE PLAN Patient's weight is stable and nutritional intake is adequate. Patient is not at risk for malnutrition at this time. Intervention: Carb controlled diet Boost GC x 2 Discharge Nutrition Recommendations: As above Per HPI:53 year old female with past medical history significant for uncontrolled DM2 (HgbA1c 12.2%), diabetic neuropathy, s/p R fifth ray amputation, Charcot deformities b/l, hyperlipidemia, restless leg syndrome with wound to b/l feet . Plans to return to SNF with OSH. Pt reports she is eating without problems, although her intakes were poor for a couple of days prior to admission. She related to a change in medication that made her nauseous. Normally has a good appetite and N/V resolved now. Current Diet Order DIET CARBOHYDRATE CONTROLLED Order Specific Question: Carbohydrate Control Answer: 3-5 CARBS/MEAL Nutritional Intake Prior to Admission: See above Anthropometrics: Height:167.6cm per pt Admission 86.381kg at OSH on 08/30 Current Weight: There is no height or weight on file to calculate BMI. overweight Pt reports UBW of 165 - 170# (75 - 77.27KG) OSH - 80.65kg 08/26/18 Last Wt 06/10/17 : 84.8 kg (187 lb) 06/02/17 : 82.9 kg (182 lb 12.8 oz) 03/08/17 : 80.3 kg (177 lb) 03/03/17 : 79.8 kg (176 lb) 12/22/16 : 78.5 kg (173 lb) 11/23/16 : 77.6 kg (171 lb) 09/25/16 : 75.5 kg (166 lb 6.4 oz) 04/27/16 : 74.8 kg (165 lb) 03/29/16 : 76.7 kg (169 lb) 01/01/16 : 73.9 kg (163 lb) 11/18/15 : 72.1 kg (159 lb) 09/24/15 : 72.6 kg (160 lb) 05/29/15 : 75.8 kg (167 lb) 04/25/15 : 74.8 kg (165 lb) 03/05/15 : 76.2 kg (168 lb) 02/18/15 : 75.8 kg (167 lb) 12/05/14 : 75.3 kg (166 lb) 08/30/14 : 80.3 kg (177 lb) 07/10/14 : 73 kg (160 lb 15 oz) 07/04/14 : 73 kg (160 lb 15 oz) Recent Labs 09/01/18 0621 08/30/18 1448 GLUC 298* < > -- BUN 19 < > -- CREAT 0.98* < > -- NA 133* < > -- K 4.9 < > -- CHLOR 95* < > -- CO2 23 < > -- ALB 3.4* < > -- CRP -- -- 0.4 HB 10.8* < > -- HCT 33.9* < > -- WBC 10.50 < > -- < > = values in this interval not displayed. MNT Billing Type: Initial Assess/15 min 2 units SIGNATURE: Jerri Ion David, MS RDN-AP LD CNSC PATIENT NAME: Diony Carrillo DATE: September 01, 2018 TIME: 4:25 PM PAGER: [phone] PROGRESS Observed: 09/01/2018 Status: COMPLETED Source: [place] 2:43 PM [facility] REPOSITORY [facility] ID: [id number] Author: Dinorah Bermudez Service: Hospital Medicine Author Type: Nurse Practitioner Type: Progress Notes Filed: 09/01/2018 2:45 PM Note Text: SERVICE DATE: 09/01/2018 SERVICE TIME: 2:43 PM HOSPITAL MEDICINE PROGRESS NOTE NIGHT AND WEEKEND COVERAGE: Days: [phone], please page me for patient issues. Nights: [phone], please page Team GI 2 - 8th floor: [phone] SUBJECTIVE Interval Events: awake, alert, no events overnight. Pain In Left foot only, and only when moving. No fever, chills, chest pain, dizziness, dyspnea, n/v/d. OBJECTIVE BP 129/55 Pulse 74 Temp (Src) 98.1 (Oral) Resp 18 SpO2 98% Physical Exam Performed: GENERAL: Alert, no distress, cooperative. Obese SKIN: Skin color, texture, turgor normal. HEAD/SINUSES: No significant findings EYES: PERRLA, EOMI LUNGS: Lungs clear to auscultation, Good diaphragmatic excursion CARDIAC: Normal S1 and S2; no rubs, murmurs, or gallops ABDOMEN: Abdomen soft, non-tender, BS normal, No masses or organomegaly EXTREMITIES: b/l LE generalized edema. B/l foot charcot deformities. 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 R plantar superficial wound. L foot surgical wound with granulation tissue present, to VAC, serous drainage NEURO: diminished sensation b/l feet to level of mid-ruiz. Diminished sensation to b/l palms. Cranial nerves II-XII intact PULSES: 2+ radial, 2+ carotid Lines, Drains, and Airways Line Peripheral 08/30/18 2208 Right Forearm 22 Gauge 1 day Reviewed lines, drains, AND airways. Need to be continued peripheral IV Medications: Reviewed Diagnostic tests reviewed: Most recent labs Recent Labs 09/01/1862008/31/18 0557 08/30/18 1447 WBC 10.50 10.89 8.48 RBC 3.79* 3.67* 3.86* HB 10.8* 10.4* 10.9* HCT 33.9* 32.9* 34.6* PLT 342 314 369 MCV 89.4 89.6 89.6 MCH 28.5 28.3 28.2 MPV 10.6 10.6 10.2 ABSNEUT 7.79* 7.90* 6.15 NEUTP 74.2 72.5 72.5 LYMPHP 16.2 17.4 17.8 MONOP 7.3 7.4 7.0 EODINP 1.8 2.1 2.2 Recent Labs 09/01/18 0621 08/31/18 0557 08/30/18 1447 GLUC 298* 253* 219* NA 133* 137 137 K 4.9 4.8 4.6 CHLOR 95* 99 96* CO2 23 26 27 CREAT 0.98* 0.86 0.83 BUN 19 16 20 ANION 15 12 14 CA 9.1 9.1 9.6 TPROT 7.2 6.7 7.2 ALB 3.4* 3.3* 3.9 TBILI 0.2 <0.2* 0.2 ALKPHOS 89 85 90 AST 43* 62* 83* ALT 63* 68* 77* Most recent labs CARE COORDINATION: Diony Carrillo is a 53 year-old female with PMH significant for uncontrolled DM2 (HgbA1c 12.2%), diabetic neuropathy, s/p R fifth ray amputation, Charcot deformities b/l, medical non-compliance, hyperlipidemia, restless leg syndrome, who presented as a transfer from [facility] for further management of b/l diabetic foot ulcers. History obtained from patient, outside records, Epic review. The patient is followed in [place], [place] by Podiatry, Dr. Allen, for b/l foot ulcers. On 08/18 pt seen in office with Dr. Allen and noted to have new b/l ulcers. Per Dr. Allen's documentation, pt had presented to OSH the day prior 08/17 with pain to b/l feet and complaint of ulcerations for ~ 2 weeks. She was given antibiotics and d/c. Per Dr. Allen's documentation on 08/18 office visit: Full thickness debridement of b/l foot ulceration thru dermis, epidermis, subcutaneous tissue was performed with tissue nippers and 15 blade. Wound culture was sent of left foot given vinicius-wound erythema. There is no fluctuance or drainage present. She is on doxycycline. She iwll continue. Will monitor culture results. She was placed in boot with peg assisted offloading, wheelchair, and advised to complete daily dressing changes with silvercel. She was advised to return 08/22 for follow-up. On 08/22, L foot ulcer with concern for abscess, referred for admission to [facility]. Cultures from 08/18 grew GPC, GBS. On admission 08/22 she was placed on IV vanco, levaquin, flagyl. MRI L foot 08/22 without reported evidence of OM. 08/23 she underwent IANDD, bone biopsy. 08/23 cultures with MSSA, GBS, bone bx preliminary was negative. Antibiotic regimen tailored to cefepime and flagyl and thereafter modified to oral regimen of bactrim/flagyl/keflex. Bactrim and flagyl were d/c after pt experienced N/V. She was continued on keflex (course to be completed 09/02/18), wound VAC to L foot, and discharged 08/25 to SNF where she was to be followed by her Pharmacy Operations Specialist. Repeat XR L foot with no sign of infection. XR R foot with new metatarsal lucency. 08/29/2018 MRI right foot with right foot plantar abscess, Dr. Allen recommended transfer to [facility]. The patient was HDS and afebrile on admission to [facility]. Podiatry and ID were consulted. ASSESSMENT AND PLAN Assessment AND Plan, all Hosp Problems Active Hospital Problems as of 09/01/2018 Noted - Resolved Hospital Wound infection 08/30/2018 - Present Current Assessment AND Plan Presented as a transfer from [facility] for further management of b/l diabetic foot ulcers. Followed in [place], [place] by Podiatry, Dr. Allen 08/18 pt seen in office with Dr. Allen and noted to have new b/l ulcers. Pt had presented to OSH the day prior 08/17 with pain to b/l feet and complaint of ulcerations for ~ 2 weeks. She was given antibiotics and d/c. Per Dr. Allen's documentation on 08/18 office visit: Full thickness debridement of b/l foot ulceration thru dermis, epidermis, subcutaneous tissue was performed with tissue nippers and 15 blade. Wound culture was sent of left foot given vinicius-wound erythema. There is no fluctuance or drainage present. She is on doxycycline. She iwll continue. Will monitor culture results. She was placed in boot with peg assisted offloading, wheelchair, and advised to complete daily dressing changes with silvercel. She was advised to return 08/22 for follow-up. On 08/22, L foot ulcer with concern for abscess, referred for admission to [facility]. Cultures from 08/18 grew GPC, GBS. On admission 08/22 she was placed on IV vanco, levaquin, flagyl. MRI L foot 08/22 without reported evidence of OM. 08/23 she underwent IANDD, bone biopsy. 08/23 cultures with MSSA, GBS, bone bx preliminary was negative. Antibiotic regimen tailored to cefepime and flagyl and thereafter modified to oral regimen of bactrim/flagyl/keflex. Bactrim and flagyl were d/c after pt experienced N/V. She was continued on keflex (course to be completed 09/02/18), wound VAC to L foot, and discharged 08/25 to SNF where she was to be followed by her Pharmacy Operations Specialist. Repeat XR L foot with no sign of infection. XR R foot with new metatarsal lucency. 08/29/2018 MRI right foot with right foot plantar abscess Dr. Allen recommended transfer to [facility] Pt HDS and afebrile on arrival to [facility] Plan: Consult to Podiatry and ID, appreciate recs Outside imaging uploaded, request to Radiology for 2nd read, spoke with Radiology, today 09/01, non-specific fluid collection at 5th metatarsal stump; Rad communicated with Pod as well L foot to VAC dressing Hold off antibiotic therapy for now NWB for now, may pivot R heel Elevate b/l LE PT/OT Uncontrolled type 2 diabetes with neuropathy (HCC) 05/23/2015 - Present Current Assessment AND Plan IDDM, home regimen lantus 30 units and humalog 15u/meal HgbA1c 12.2% Non-compliant with diet Plan: Continue home regimen and uptitrate insulin as warranted SSI Hypoglycemia protocol Carb-controlled diet DM education Diabetic polyneuropathy associated with type 2 diabetes mellitus (HCC) 06/02/2007 - Present Current Assessment AND Plan Polyneuropathy in uncontrolled DM Diminished sensation in stocking/glove pattern Plan: Continue neurontin 800mg TID Charcot foot due to diabetes mellitus (HCC) 06/21/2018 - Present Hyperlipidemia 08/30/2018 - Present Current Assessment AND Plan Continue crestor Restless legs syndrome (RLS) 06/02/2007 - Present Current Assessment AND Plan Continue requip Blurry vision 08/31/2018 - Present Current Assessment AND Plan Pt reports today 08/31 b/l blurry vision x 4 days No eye pain, drainage, itching Plan: Coordinate evaluation with ophthal Glucose control as above Medication and Non-Pharmacologic VTE Prophylaxis/Anticoagulants 08/30/18 1345 pneumatic compression stockings (tx,ks) VTE Prophylaxis: VTE prophylaxis appropriate Plan of care discussed with: Attending, Patient, Case Management, RN and Consultants: Radiology, Podiatry SIGNATURE: Dinorah Bermudez APRN.CNP PATIENT NAME: Diony Carrillo DATE: September 01, 2018 TIME: 2:43 PM PAGER/CONTACT #: [phone] CASE MGT INIT Observed: 09/01/2018 Status: COMPLETED Source: [facility] 2:34 PM CLINIC MAIN CAMPUS REPOSITORY [facility] ID: [id number] Author: Ginna Nieto (Sw) Service: Care Management Author Type: Small Lot Operator Type: Care Mgt Initial Assessment Filed: 09/01/2018 2:55 PM Note Text: CARE MANAGEMENT: ASSESSMENT AND DISCHARGE PLAN NO WEEKEND DISCHARGE SERVICE DATE: 09/01/2018 SERVICE TIME: 2:05 PM PRIMARY CARE PHYSICIAN: Alessandro Eric MD ADMISSION STATUS: Inpatient Needs Prior to Discharge: To Be Determined 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 No Advance Directive: Health Literacy: 1. How often do you need to have someone help you when you read instructions, pamphlets, or other written material from your doctor or pharmacy? Sometimes - 3 2. How confident are you filling out medical forms by yourself? Somewhat - 3 If Patient scores > 3 on either question, the following interventions were put into place: Use of plain language and active listening with Patient and family, Teach back methods employed to ensure comprehension, Use concrete and specific phrases, avoid medical jargon, Forms of communication used with patient and family and Sit with Patient FUNCTIONAL AND COGNITIVE/BEHAVIORAL PRIOR TO ADMISSION: Baseline Mental Status: Alert AND Oriented, Person, Place , Time and Situation Functional Status: Needs Assistance Does Patient Currently Receive Any Community Services or Home Care? None Equipment Prior to Admission: Wheelchair Has the Patient Been in a Penitentiary Facility in the Past 30 days? Yes. Where and Dates: [facility] SOCIAL: Living Arrangement: Home Lives With: Alone Financial Resources: Disabled Primary Contact: Extended Emergency Contact Information Primary Emergency Contact: DavidMarixa Mobile Relation: Daughter Secondary Emergency Contact: Caren Trevino Mobile Relation: Friend Supportive: Yes Other Important Patient Contacts: None Caregiver Assessment: Caregiver is ready, willing and able to meet the patient's needs as recommended by the inter-professional team? Pt needs SNF placement. Patient's transition needs and plan for meeting these needs: Pt needs SNF placement, does not have supports in the community. Does the patient have an acute stroke diagnosis, or has the patient had a stroke during this admission? No Medication Adherence: I am convinced of the importance of my prescription medication: Agree mostly - 0 I worry that my prescription medication will do more harm than good to me Disagree somewhat - 4 I feel financially burdened by my [id number] expenses for my prescription medication: Disagree mostly -0 Patient is categorized as low risk < 2 Are you interested in bedside delivery of your medications? Yes Food Concerns: In the Last Month, Have You had Trouble Getting Food? No trouble getting food During the Last Month, Have You Worried Whether Your Food Would Run Out Before You Had Enough Money to Buy More? No Is the Patient Psychosocially Complex? Yes, refer to Social Work. ASSESSMENT AND PLAN: Medical Needs: 2 or more chronic diseases Psychosocial Needs: None FREEDOM OF CHOICE EXPLAINED: Preference: [facility] SNF POTENTIAL TRANSITION PLANS Penitentiary Facility/Intermediate Care Facility Pt is from [facility], pt would like to return at time of dc. Pt stated her is in [place]; is working on getting his VISA. Pt stated her daughter is unreliable and cannot help her around the home or to get to her appointments. Pt stated at the SNF they are working on setting her up with transport for her to get to and from her appointments as long as they are in the [place] area. Pt stated they are also working on getting her setup with HHC and [facility] for when she returns home. Referral sent to [facility]. SW left a message at admissions inquiring if pt could return to SNF this weekend. SW will resume care of pt Tuesday09/04/18. SIGNATURE: ERIN Fleming PATIENT NAME: Diony Carrillo DATE: September 01, 2018 TIME: 2:34 PM PAGER/CONTACT #: [phone] CONSULT PROG Observed: 09/01/2018 Status: COMPLETED Source: [place] 1:38 PM [facility] [place] REPOSITORY [facility] ID: [id number] Author: Eileen Merritt DPM Service: Podiatry Author Type: Resident Type: Consult Progress Note Filed: 09/01/2018 3:07 PM Note Text: PODIATRIC MEDICINE AND SURGERY CONSULT PROGRESS NOTE PODIATRY STAFF [employer]OURCES PROFESSOR: Sarah Simons DPM Please first [place] [phone] with questions/concerns. FOLLOW UP: Left foot open wound, right foot open wound ASSESSMENT: 53 year old female with past medical history significant for uncontrolled DM2 (HgbA1c 12.2%), diabetic neuropathy, s/p R fifth ray amputation, Charcot deformities b/l, hyperlipidemia, restless leg syndrome with wound to b/l feet . PLAN AND RECOMMENDATIONS: - Spoke with [facility] radiology fellow, read of right foot MRI shoes nonspecific fluid collection with wall enhancement in subcutaneous tissue right above ulcer. On exam ulcer is very superficial, can not exude any pus, ulcer is not draining, warm, cellulitic, or painful. Fluid collection is abscess vs. adventicial bursa, due to lack of any signs of infection we will hold off on deep debridement at this time. Can resume antibiotics for left foot that pt was getting at OSH. - Veraflo wound vac with dakins irrigation applied to left foot to be changed tomorrow. Right foot dressed with DSD. Dressing should remain clean, dry, and intact. Podiatry will perform dressing changes. - Heel WB for transfers to Right foot, NWB to left foot. Ok to use walker, crutches, or other assistive device(s) to use the restroom or for Physical Therapy. - Elevate LLE at or above the level of the heart. - Antibiotics per ID recommendations. Wound culture taken at OSH. - Pain management per primary team. - Podiatry will continue to follow. INTERVAL HISTORY: Afebrile and hemodynamically stable overnight per recorded vital signs. Denies nausea, vomiting, fever, chills, calf pain, chest pain, shortness of breath, or diarrhea. Current hospital medications: insulin lispro 20 Units injection (rapid acting) (HumaLOG) 20 Units SUBCUTANEOUS TID w MEALS senna 8.6 mg tab(s) (SENOKOT) 1 tablet ORAL BID insulin glargine 15 Units pen (long acting) (LANTUS SOLOSTAR, BASAGLAR KWIKPEN) 15 Units SUBCUTANEOUS AT BEDTIME NaCl 0.9% 3-5 mL 3-5 mL INTRAVENOUS q 12 H NaCl 0.9% 2-10 mL 2-10 mL INTRAVENOUS q 12 H acetaminophen 650 mg tab(s) (TYLENOL) 650 mg ORAL q 6 H PRN docusate sodium 100 mg cap(s) (COLACE) 100 mg ORAL BID PRN gabapentin 800 mg tab(s) (NEURONTIN) 800 mg ORAL TID promethazine 12.5 mg tab(s) (PHENERGAN) 12.5 mg ORAL q 6 H PRN rosuvastatin 40 mg tab(s) (CRESTOR) 40 mg ORAL DAILY insulin glargine 30 Units pen (long acting) (LANTUS SOLOSTAR, BASAGLAR KWIKPEN) 30 Units SUBCUTANEOUS DAILY (8 AM) oxyCODONE IR 5 mg tab(s) (ROXICODONE) 5 mg ORAL q [address] 20 mg tab(s) (PROTONIX) 20 mg ORAL BEFORE BREAKFAST DAILY ascorbic acid (vitamin C) 500 mg tab(s) (VITAMIN C) 500 mg ORAL BID w MEALS dextrose 40 % 15 g 15 g ORAL PRN glucagon 1 mg injection (GLUCAGEN) 1 mg INTRAMUSCULAR PRN dextrose 50 % 12.5 g injection 12.5 g INTRAVENOUS PRN sodium hypochlorite (Dakin's Half-Strength) 0.25 % in empty bag Total Volume 480 mL topical irrigation 6 mL/hr IRRIGATION CONTINUOUS rOPINIRole 1.5 mg tab(s) (REQUIP) 1.5 mg ORAL BID insulin lispro injection (rapid acting) (HumaLOG) SUBCUTANEOUS w MEALS AND HS REVIEW OF SYSTEMS: As states in interval history. OBJECTIVE: BP 129/55 Pulse 74 Temp 36.7 ?C (98.1 ?F) (Oral) Resp 18 SpO2 98% Alert and oriented to person, place, and time. No acute distress. Pedal pulses are palpable. CFT is brisk to the distal toes B/L. Able to actively dorsiflex and plantarflex the B/L foot. B/L dressings are clean, dry, and intact without erythema or lymphangiitis beyond the borders of the dressing. Wound vac in place with adequate pressure maintained. No audible or reported leaks present. Verbal consent obtained prior to obtaining photo. All efforts were made to exclude PHI. LABS: Recent Labs 09/01/18 0621 08/31/18 0557 08/30/18 1447 WBC 10.50 10.89 8.48 HB 10.8* 10.4* 10.9* HCT 33.9* 32.9* 34.6* PLT 342 314 369 NA 133* 137 137 K 4.9 4.8 4.6 CHLOR 95* 99 96* CO2 23 26 27 CREAT 0.98* 0.86 0.83 BUN 19 16 20 GLUC 298* 253* 219* TPROT 7.2 6.7 7.2 ALB 3.4* 3.3* 3.9 CA 9.1 9.1 9.6 ALKPHOS 89 85 90 TBILI 0.2 <0.2* 0.2 AST 43* 62* 83* ALT 63* 68* 77* CRP Date Value Ref Range Status 08/30/2018 0.4 <0.9 mg/dL Final WSR Date Value Ref Range Status 08/30/2018 87 (H) 0 - 20 mm/hr Final PT INR Date Value Ref Range Status 08/30/2018 1.0 0.9 - 1.3 Final Comment: Vitamin K Antagonist (VKA) Therapeutic Range: INR 2 to 3 (Target INR of 2.5) Note: For patients treated with VKA drugs, such as warfarin, the [employer] 2012 Guideline recommends a therapeutic INR range of 2 to 3 (target INR of 2.5). This recommendation includes high-risk patients with antiphospholipid syndrome with previous arterial or venous thromboembolism, current-generation mechanical or bioprosthetic aortic heart valve replacement. Note: Patients with mechanical aortic valve replacement and additional risk factors for thromboembolic events (atrial fibrillation, previous thromboembolism, LV dysfunction, hypercoagulable conditions) or an older generation mechanical AVR (i.e., ball in-Cage) or any mechanical MVR should have a INR therapeutic range of 2.5 to 3.5 (target INR of 3). Celso GH, et al. Chest 2012, 141:7S-47S Luda RA, et al. [facility] 2017, 70: 252-289 APTT Date Value Ref Range Status 08/30/2018 25.1 23.0 - 32.4 sec Final Comment: Unfractionated Heparin Therapeutic Ranges: Standard Heparin Nomogram: 53 to 78 seconds (anti-Xa level of 0.3 to 0.7 U/ml) Low Dose/ACS Nomogram: 49 to 67 seconds (anti-Xa level of 0.2 to 0.5 U/ml) Stroke Treatment Nomogram: 49 to 67 seconds (anti-Xa level of 0.2 to 0.5 U/ml) Note: The APTT therapeutic range has been determined for the current lot of laboratory APTT reagent in use throughout the [facility]. Hemoglobin A1C (%) Date Value 08/30/2018 11.7 08/02/2018 12.2 03/03/2017 12.4 11/26/2016 11.2 01/01/2016 11.2 MICROBIOLOGY: IMAGING: VASCULAR STUDIES: Eileen Merritt DPM, PGY-1 Please first [place] [phone] with questions/concerns. August 31, 2018 12:07 PM CONSULT Observed: 09/01/2018 Status: COMPLETED Source: [place] 12:09 PM [facility] REPOSITORY HNO ID: [id number] Author: Indio Moura Service: Ophthalmology Author Type: Physician Type: Consults Filed: 09/01/2018 12:49 PM Note Text: She has high risk Proliferative diabetic retinopathy Both eyes and I suggest starting anti VEGF injections Both eyes which we will do today. There is a lengthy note in our OPD EPIC chart; please look on the OPD side of EPIC. Thank you very much. It is normal to experience mild blurring of vision, mild irritation/burning for the first 1-2 days. If this is the case, the patient can use artificial tears 6x daily both eyes PRN and Tylenol (or whatever analgesic is permitted for this patient). Patient counseled to mention to care team if severe decrease in vision, severe pain. Kike Garcia MD PGY4 resident Indio Moura MD 09/01/2018 PROGRESS Observed: 09/01/2018 Status: COMPLETED Source: [place] 10:22 AM [facility] REPOSITORY HNO ID: [id number] Author: Kike (Lelia) Radha Service: (none) Author Type: Resident Type: Progress Notes Filed: 09/01/2018 12:43 PM Note Text: Pt is an inpatient now 20 year h/o Diabetes Mellitus In hospital for her feet (infection) Seen by Dr Bo for an inpatient consult last night -- 1. Diabetes mellitus - Describes fluctuating vision over past days - Had a HAMILTON for about 6 hr and then got blurry Both eyes - BS was at 500 when had surgery and then dropped to 55 and has been all over the place - DME unlikely to explain blurry vision as OCT macula 09/01/18 with only mild extrafoveal fluid - Suspect blurred vision due to lens changes from uncontrolled BG vs. slightly enlarged PATSY on FA with mild IS/OS irregularity - Needs BG/BP control per primary team Lab Results Component Value Date HBA1C 11.7 08/30/2018 HBA1C 12.2 08/02/2018 HBA1C 12.4 03/03/2017 2. Proliferative diabetic retinopathy OU RIGHT - likely high risk (NVD appears > 1/3 disc area) - FA 09/01/18 with NVE and NVD - Likely PRP or Avastin LEFT - High risk (NVD + vit heme) - FA 09/01/18 with NVE and NVD - PRP or Avastin Kike Garcia Ophthalmology resident Reduced acuity is likely refractive due to fluctuating BS -- once BS stable, can refract PRN Suggest Avastin Both eyes and then Panretinal laser photocoagulation Both eyes over time I reviewed the risks, benefits, alternatives, plan and the patient gives her consent and would like to proceed. Indio Moura MD, 09/01/2018. I have confirmed and edited as necessary the relevant ophthalmic history, ROS, and the neuro exam findings as obtained by others. I have seen and examined Diony Carrillo. I have discussed the case and the management of this patient's care with the Resident/Fellow, if applicable. I also have reviewed and agree with the assessment and plan as stated above and agree with all of its relevant components. Indio Moura MD 09/01/2018 THERAPY NT Observed: 09/01/2018 Status: COMPLETED Source: [place] 10:15 AM [facility] REPOSITORY HNO ID: [id number] Author: Funmi Cha Service: Physical Therapy Author Type: Physical Therapist Type: Therapy (PT/OT/Speech/Resp) Filed: 09/01/2018 10:16 AM Note Text: PHYSICAL THERAPY MISSED VISIT SERVICE DATE: 09/01/2018 SERVICE TIME: 1012 to 1012 ROOM: [place] [id number] ([address])) Attempted Evaluation. Patient not seen due to Test/Procedure. Will f/u as able. Would like to clarify WB status with podiatry as note indicates NWB to B/L LE. Use of post op shoe while ambulating. Ok to use walker, crutches, or other assistive device(s) to use the restroom or for Physical Therapy SIGNATURE: Funmi Cha PT PATIENT NAME: Diony Carrillo DATE: September 01, 2018 TIME: 10:15 AM CONSULT PROG Observed: 09/01/2018 Status: COMPLETED Source: [place] 10:14 AM [facility] REPOSITORY HNO ID: [id number] Author: Courtney Mcclellan Service: Infectious Disease Author Type: Physician Type: Consult Progress Note Filed: 09/01/2018 4:53 PM Note Text: INFECTIOUS DISEASE BONE AND JOINT SERVICE PROGRESS NOTE Date: September 01, 2018 Patient Name: Diony Carrillo Interval events: still complains of left foot pain. No changes MEDICATIONS Medications reviewed. Current hospital medications: insulin lispro 20 Units injection (rapid acting) (HumaLOG) 20 Units SUBCUTANEOUS TID w MEALS senna 8.6 mg tab(s) (SENOKOT) 1 tablet ORAL BID insulin glargine 15 Units pen (long acting) (LANTUS SOLOSTAR, BASAGLAR KWIKPEN) 15 Units SUBCUTANEOUS AT BEDTIME NaCl 0.9% 3-5 mL 3-5 mL INTRAVENOUS q 12 H NaCl 0.9% 2-10 mL 2-10 mL INTRAVENOUS q 12 H acetaminophen 650 mg tab(s) (TYLENOL) 650 mg ORAL q 6 H PRN docusate sodium 100 mg cap(s) (COLACE) 100 mg ORAL BID PRN gabapentin 800 mg tab(s) (NEURONTIN) 800 mg ORAL TID promethazine 12.5 mg tab(s) (PHENERGAN) 12.5 mg ORAL q 6 H PRN rosuvastatin 40 mg tab(s) (CRESTOR) 40 mg ORAL DAILY insulin glargine 30 Units pen (long acting) (LANTUS SOLOSTAR, BASAGLAR KWIKPEN) 30 Units SUBCUTANEOUS DAILY (8 AM) oxyCODONE IR 5 mg tab(s) (ROXICODONE) 5 mg ORAL q [address] 20 mg tab(s) (PROTONIX) 20 mg ORAL BEFORE BREAKFAST DAILY ascorbic acid (vitamin C) 500 mg tab(s) (VITAMIN C) 500 mg ORAL BID w MEALS dextrose 40 % 15 g 15 g ORAL PRN glucagon 1 mg injection (GLUCAGEN) 1 mg INTRAMUSCULAR PRN dextrose 50 % 12.5 g injection 12.5 g INTRAVENOUS PRN sodium hypochlorite (Dakin's Half-Strength) 0.25 % in empty bag Total Volume 480 mL topical irrigation 6 mL/hr IRRIGATION CONTINUOUS rOPINIRole 1.5 mg tab(s) (REQUIP) 1.5 mg ORAL BID insulin lispro injection (rapid acting) (HumaLOG) SUBCUTANEOUS w MEALS AND HS EXAMINATION: Vital signs: BP 119/63 Pulse 79 Temp 36.8 ?C (98.2 ?F) (Oral) Resp 16 SpO2 97% Temp (24hrs), Av.9 ?C (98.5 ?F), Min:36.8 ?C (98.2 ?F), Max:37.5 ?C (99.5 ?F) Constitutional: Looks well. Oriented to time, place and person. Skin: No rashes. Affected joint: left 5th toe amputation. wound vac in place without erythema. Others: Vascular access sites appear fine. peripheral IV LABORATORY DATA: WBC (k/uL) Date Value 09/01/2018 10.50 08/31/2018 10.89 08/30/2018 8.48 Hemoglobin (g/dL) Date Value 09/01/2018 10.8 08/31/2018 10.4 08/30/2018 10.9 Platelet Count (k/uL) Date Value 09/01/2018 342 08/31/2018 314 08/30/2018 369 Creatinine (mg/dL) Date Value 09/01/2018 0.98 08/31/2018 0.86 08/30/2018 0.83 Vancomycin Pre (no units) Date Value 08/13/2014 6.2 08/07/2014 15.9 07/22/2014 9.3 MICROBIOLOGY DATA: 08/23/18 at [facility] left foot abscess: MSSA and group B strep ( susc to all, not clinda) 5th metatarsal bone bx- no growth RADIOLOGY DATA: MRI second read pending ASSESSMENT: Ms. Carrillo is a 53 year old female with PMhx significant for DM2, charcot neuroarthropathy, peripheral neuropathy, DJD, tranferred from OSH for management of DFI. 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 Treated with bactrim, flagyl and keflex but was nauseated on these. Repeat imaging 08/29 with ? abscess of right plantar foot. This is being reevaluated. ? RECOMMENDATIONS: continue to hold abx. If repeat read is negative, do not see need for further abx as bone cxs were negative at surgery. I am christian education director this weekend and available for questions. Signature: Courtney Mcclellan MD Pager: [phone] Date and Time of Service: September 01, 2018 CBC AND DIFFERENTIAL Collected: 09/01/2018 Status: F Source: [place] 6:21 AM [facility] REPOSITORY TYPE CODE TESTS RESULT OUT OF REFERENCE UNITS RANGE LAB WBC 3.70-11.00 k/uL WBC 10.50 LAB RBC 3.90-5.20 m/uL Low RBC 3.79 LAB HGB 11.5-15.5 g/dL Low Hemoglobin 10.8 LAB HCT 36.0-46.0 % Low Hematocrit 33.9 LAB MCV 80.0-100.0 fL MCV 89.4 LAB MCH 26.0-34.0 pG MCH 28.5 LAB MCHC 30.5-36.0 g/dL MCHC 31.9 LAB RDWCV 11.5-15.0 % RDW-CV 13.2 LAB PLTCT 150-400 k/uL Platelet Count 342 LAB MPV 9.0-12.7 fL MPV 10.6 LAB ANEUT % Neut% 74.2 LAB AANEUT 1.45-7.50 k/uL Abs Neut High 7.79 LAB ALYMP % Lymph% 16.2 LAB AALYMP 1.00-4.00 k/uL Abs Lymph 1.70 LAB AMONO % [place]% 7.3 LAB AAMONO <0.87 k/uL Abs [place] 0.77 LAB AEOS % Eosin% 1.8 LAB AAEOS <0.46 k/uL Abs Eosin 0.19 LAB ABASO % Baso% 0.5 LAB AABASO <0.11 k/uL Abs Baso 0.05 LAB AUNRBC 0 /100 WBC NRBCs 0.0 LAB ABNRBC <0.01 k/uL Absolute nRBC <0.01 LAB DTYP DTYPE Auto Diff Performed By: #### CBCDIF, CMP #### [facility] [address] [place], [place] [address] COMP METABOLIC PANEL Collected: 09/01/2018 Status: F Source: [place] 6:21 AM [facility] REPOSITORY TYPE CODE TESTS RESULT OUT OF REFERENCE UNITS RANGE LAB TP 6.3-8.0 g/dL Protein, Total 7.2 LAB ALB 3.9-4.9 g/dL Low Albumin 3.4 LAB CA 8.5-10.2 mg/dL Calcium, Total 9.1 LAB TBIL 0.2-1.3 mg/dL Bilirubin, Total 0.2 LAB ALKP 34-123 U/L Alkaline Phosphatase 89 LAB AST 13-35 U/L AST High 43 LAB GLU 74-99 mg/dL Glucose High 298 Result Comment: The [place] [employer] (ADA) provides guidance for cutoff values for fasting glucose and random glucose. The ADA defines fasting as no caloric intake for at least 8 hours. Fas ting plasma glucose results between 100 to 125 mg/dL indicate increased risk for diabetes (prediabetes). Fasting plasma glucose results greater than or equal to 126 mg/dL meet the criteria for diagnosis of diabetes. In the absence of unequivocal hyperglycemia, results should be confirmed by repeat testing. In a patient with classic symptoms of hyperglycemia or hyperglycemic crisis, random plasma glucose results greater than or equal to 200 mg/dL meet the criteria for diagnosis of diabetes. Reference: Standards of Medical Care in Diabetes 2016, [place] [employer]. Diabetes Care. 2016.39(Suppl 1). LAB BUN 7-21 mg/dL BUN 19 LAB CRET 0.58-0.96 mg/dL Creatinine High 0.98 LAB NA 136-144 mmol/L Low Sodium 133 LAB K 3.7-5.1 mmol/L Potassium 4.9 LAB CL 97-105 mmol/L Low Chloride 95 LAB CO2 22-30 mmol/L CO2 23 LAB AGAP 9-18 mmol/L Anion Gap 15 LAB ALT 7-38 U/L ALT High 63 LAB GFRAA eGFR- Amer. >60 LAB GFRNAA . eGFR-All Other Races 59 Result Comment: eGFR (Estimated GFR) Units of measure: mL/min/1.73 meters squared eGFR is derived from the reexpressed MDRD Study equation using the following parameters: serum creatinine, age, gender and race. The creatinine assay has been calibrated to be traceable to IDMS. An eGFR <60 mL/min/1.73m2 for >3 months is consistent with chronic kidney disease. Refer to KDOQI guidelines for clinical interpretation. In patients with unstable renal function, e.g. those with acute kidney injury, the eGFR may not accurately reflect actual GFR. Performed By: #### CBCDIF, CMP #### [facility] [address] [place], [place] [address] PROGRESS Observed: 08/31/2018 Status: COMPLETED Source: [place] 2:56 PM [facility] REPOSITORY HNO ID: [id number] Author: Valencia Bo Service: (none) Author Type: Resident Type: Progress Notes Filed: 08/31/2018 3:38 PM Note Text: IDDM2 with PDR OU, high-risk OS, possible high-risk OD - poorly controlled BS - A1C 11.7 on 08/30/18 - vision decline x 4 days OU - exam with trace NVI OS, NVD and NVE OS>OD - discussed will likely need treatment, discussed possible treatment options including laser/injections Plan: - return tomorrow 09/01/18 at 9:[address] Moura - consider FA tomorrow Valencia Bo MD Ophthalmology Resident Resident on-call visit only CONSULT PROG Observed: 08/31/2018 Status: COMPLETED Source: [place] 12:07 PM [facility] REPOSITORY HNO ID: [id number] Author: Eileen (ResRashaun Merritt DPM Service: Podiatry Author Type: Resident Type: Consult Progress Note Filed: 08/31/2018 12:13 PM Note Text: PODIATRIC MEDICINE AND SURGERY CONSULT PROGRESS NOTE PODIATRY STAFF [employer] RESOURCES PROFESSOR: Sarah Simons DPM Please first [place] [phone] with questions/concerns. FOLLOW UP: Left foot open wound, right foot open wound ASSESSMENT: 53 year old female with past medical history significant for uncontrolled DM2 (HgbA1c 12.2%), diabetic neuropathy, s/p R fifth ray amputation, Charcot deformities b/l, hyperlipidemia, restless leg syndrome with wound to b/l feet . PLAN AND RECOMMENDATIONS: - Recommend 2nd read of right foot MRI from OSH, if this is unable to be done please have pt get a new MRI right foot. - Veraflo wound vac with dakins irrigation applied to left foot today. Right foot dressed with DSD. Dressing should remain clean, dry, and intact. Podiatry will perform dressing changes. - NWB to B/L LE. Use of post op shoe while ambulating. Ok to use walker, crutches, or other assistive device(s) to use the restroom or for Physical Therapy. - Elevate LLE at or above the level of the heart. - Antibiotics per ID recommendations. Wound culture taken at OSH. - Pain management per primary team. - Podiatry will continue to follow. INTERVAL HISTORY: Afebrile and hemodynamically stable overnight per recorded vital signs. Denies nausea, vomiting, fever, chills, calf pain, chest pain, shortness of breath, or diarrhea. Current hospital medications: senna 8.6 mg tab(s) (SENOKOT) 1 tablet ORAL BID insulin glargine 15 Units pen (long acting) (LANTUS SOLOSTAR, BASAGLAR KWIKPEN) 15 Units SUBCUTANEOUS AT BEDTIME NaCl 0.9% 3-5 mL 3-5 mL INTRAVENOUS q 12 H NaCl 0.9% 2-10 mL 2-10 mL INTRAVENOUS q 12 H acetaminophen 650 mg tab(s) (TYLENOL) 650 mg ORAL q 6 H PRN docusate sodium 100 mg cap(s) (COLACE) 100 mg ORAL BID PRN gabapentin 800 mg tab(s) (NEURONTIN) 800 mg ORAL TID promethazine 12.5 mg tab(s) (PHENERGAN) 12.5 mg ORAL q 6 H PRN rosuvastatin 40 mg tab(s) (CRESTOR) 40 mg ORAL DAILY insulin lispro 15 Units injection (rapid acting) (HumaLOG) 15 Units SUBCUTANEOUS TID w MEALS insulin glargine 30 Units pen (long acting) (LANTUS SOLOSTAR, BASAGLAR KWIKPEN) 30 Units SUBCUTANEOUS DAILY (8 AM) oxyCODONE IR 5 mg tab(s) (ROXICODONE) 5 mg ORAL q [address] 20 mg tab(s) (PROTONIX) 20 mg ORAL BEFORE BREAKFAST DAILY ascorbic acid (vitamin C) 500 mg tab(s) (VITAMIN C) 500 mg ORAL BID w MEALS dextrose 40 % 15 g 15 g ORAL PRN glucagon 1 mg injection (GLUCAGEN) 1 mg INTRAMUSCULAR PRN dextrose 50 % 12.5 g injection 12.5 g INTRAVENOUS PRN sodium hypochlorite (Dakin's Half-Strength) 0.25 % in empty bag Total Volume 480 mL topical irrigation 6 mL/hr IRRIGATION CONTINUOUS rOPINIRole 1.5 mg tab(s) (REQUIP) 1.5 mg ORAL BID insulin lispro injection (rapid acting) (HumaLOG) SUBCUTANEOUS w MEALS AND HS REVIEW OF SYSTEMS: As states in interval history. OBJECTIVE: BP 128/60 Pulse 73 Temp 36.9 ?C (98.5 ?F) (Oral) Resp 18 SpO2 94% Alert and oriented to person, place, and time. No acute distress. Pedal pulses are palpable. CFT is brisk to the distal toes B/L. Able to actively dorsiflex and plantarflex the B/L foot. B/L dressings are clean, dry, and intact without erythema or lymphangiitis beyond the borders of the dressing. Wound vac in place with adequate pressure maintained. No audible or reported leaks present. Verbal consent obtained prior to obtaining photo. All efforts were made to exclude PHI. LABS: Recent Labs 08/31/18 0557 08/30/18 1447 WBC 10.89 8.48 HB 10.4* 10.9* HCT 32.9* 34.6* PLT 314 369 NA 137 137 K 4.8 4.6 CHLOR 99 96* CO2 26 27 CREAT 0.86 0.83 BUN 16 20 GLUC 253* 219* TPROT 6.7 7.2 ALB 3.3* 3.9 CA 9.1 9.6 ALKPHOS 85 90 TBILI <0.2* 0.2 AST 62* 83* ALT 68* 77* CRP Date Value Ref Range Status 08/30/2018 0.4 <0.9 mg/dL Final WSR Date Value Ref Range Status 08/30/2018 87 (H) 0 - 20 mm/hr Final PT INR Date Value Ref Range Status 08/30/2018 1.0 0.9 - 1.3 Final Comment: Vitamin K Antagonist (VKA) Therapeutic Range: INR 2 to 3 (Target INR of 2.5) Note: For patients treated with VKA drugs, such as warfarin, the [employer] 2012 Guideline recommends a therapeutic INR range of 2 to 3 (target INR of 2.5). This recommendation includes high-risk patients with antiphospholipid syndrome with previous arterial or venous thromboembolism, current-generation mechanical or bioprosthetic aortic heart valve replacement. Note: Patients with mechanical aortic valve replacement and additional risk factors for thromboembolic events (atrial fibrillation, previous thromboembolism, LV dysfunction, hypercoagulable conditions) or an older generation mechanical AVR (i.e., ball in-Cage) or any mechanical MVR should have a INR therapeutic range of 2.5 to 3.5 (target INR of 3). Celso GH, et al. Chest 2012, 141:7S-47S Luda BABCOCK, et al. [facility] 2017, 70: 252-289 APTT Date Value Ref Range Status 08/30/2018 25.1 23.0 - 32.4 sec Final Comment: Unfractionated Heparin Therapeutic Ranges: Standard Heparin Nomogram: 53 to 78 seconds (anti-Xa level of 0.3 to 0.7 U/ml) Low Dose/ACS Nomogram: 49 to 67 seconds (anti-Xa level of 0.2 to 0.5 U/ml) Stroke Treatment Nomogram: 49 to 67 seconds (anti-Xa level of 0.2 to 0.5 U/ml) Note: The APTT therapeutic range has been determined for the current lot of laboratory APTT reagent in use throughout the [facility]. Hemoglobin A1C (%) Date Value 08/30/2018 11.7 08/02/2018 12.2 03/03/2017 12.4 11/26/2016 11.2 01/01/2016 11.2 MICROBIOLOGY: IMAGING: VASCULAR STUDIES: Eileen Merritt DPM, PGY-1 Please [place] [phone] with questions/concerns. August 31, 2018 12:07 PM PROGRESS Observed: 08/31/2018 Status: COMPLETED Source: [place] 10:39 AM [facility] REPOSITORY HNO ID: [id number] Author: Dinorah Bermudez Service: Hospital Medicine Author Type: Nurse Practitioner Type: Progress Notes Filed: 08/31/2018 10:39 AM Note Text: SERVICE DATE: 08/31/2018 SERVICE TIME: 10:39 AM HOSPITAL MEDICINE PROGRESS NOTE NIGHT AND WEEKEND COVERAGE: Days: [phone], please page me for patient issues. Nights: [phone], please page Team GI 2 - 8th floor: [id number] SUBJECTIVE Interval Events: awake, alert, no events overnight. apin in L foot with movement only. No fever, chills, chest pain, dizziness, dyspnea, n/v/d. Does report blurry vision x4 days, no eye pain/drianage/itching. OBJECTIVE BP 128/60 Pulse 73 Temp (Src) 98.5 (Oral) Resp 18 SpO2 94% Physical Exam Performed: GENERAL: Alert, no distress, cooperative. Obese SKIN: Skin color, texture, turgor normal. HEAD/SINUSES: No significant findings EYES: PERRLA, EOMI LUNGS: Lungs clear to auscultation, Good diaphragmatic excursion CARDIAC: Normal S1 and S2; no rubs, murmurs, or gallops ABDOMEN: Abdomen soft, non-tender, BS normal, No masses or organomegaly EXTREMITIES: b/l LE generalized edema. B/l foot charcot deformities. 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 R plantar superficial wound. L foot surgical wound with granulation tissue present. NEURO: diminished sensation b/l feet to level of mid-ruiz. Diminished sensation to b/l palms. Cranial nerves II-XII intact PULSES: 2+ radial, 2+ carotid Lines, Drains, and Airways Line Peripheral 08/30/18 2208 Right Forearm 22 Gauge less than 1 day Reviewed lines, drains, AND airways. Need to be continued peripheral IV Medications: Reviewed Diagnostic tests reviewed: Most recent labs Recent Labs 08/31/1857 08/30/18 1447 08/02/18 1210 WBC 10.89 8.48 10.34 RBC 3.67* 3.86* 4.56 HB 10.4* 10.9* 13.0 HCT 32.9* 34.6* 40.6 PLT 314 369 324 MCV 89.6 89.6 89.0 MCH 28.3 28.2 28.5 MPV 10.6 10.2 11.8 ABSNEUT 7.90* 6.15 8.29* NEUTP 72.5 72.5 80.1 LYMPHP 17.4 17.8 13.0 MONOP 7.4 7.0 5.3 EODINP 2.1 2.2 0.9 Recent Labs 08/31/18 0557 08/30/18 1447 08/02/18 1210 GLUC 253* 219* Test reordered by [facility]. NA 137 137 Test reordered by [facility]. K 4.8 4.6 Test reordered by [facility]. CHLOR 99 96* Test reordered by [facility]. CO2 26 27 Test reordered by [facility]. CREAT 0.86 0.83 Test reordered by [facility]. BUN 16 20 Test reordered by [facility]. ANION 12 14 Test reordered by [facility]. CA 9.1 9.6 Test reordered by [facility]. TPROT 6.7 7.2 Test reordered by [facility]. ALB 3.3* 3.9 Test reordered by [facility]. TBILI <0.2* 0.2 Test reordered by [facility]. ALKPHOS 85 90 Test reordered by [facility]. AST 62* 83* Test reordered by [facility]. ALT 68* 77* Test reordered by [facility]. Most recent labs CARE COORDINATION: Diony Carrillo is a 53 year-old female with PMH significant for uncontrolled DM2 (HgbA1c 12.2%), diabetic neuropathy, s/p R fifth ray amputation, Charcot deformities b/l, medical non-compliance, hyperlipidemia, restless leg syndrome, who presented as a transfer from [facility] for further management of b/l diabetic foot ulcers. History obtained from patient, outside records, Epic review. The patient is followed in [place], [place] by Podiatry, Dr. Allen, for b/l foot ulcers. On 08/18 pt seen in office with Dr. Allen and noted to have new b/l ulcers. Per Dr. Allen's documentation, pt had presented to OSH the day prior 08/17 with pain to b/l feet and complaint of ulcerations for ~ 2 weeks. She was given antibiotics and d/c. Per Dr. Allen's documentation on 08/18 office visit: Full thickness debridement of b/l foot ulceration thru dermis, epidermis, subcutaneous tissue was performed with tissue nippers and 15 blade. Wound culture was sent of left foot given vinicius-wound erythema. There is no fluctuance or drainage present. She is on doxycycline. She iwll continue. Will monitor culture results. She was placed in boot with peg assisted offloading, wheelchair, and advised to complete daily dressing changes with silvercel. She was advised to return 08/22 for follow-up. On 08/22, L foot ulcer with concern for abscess, referred for admission to [facility]. Cultures from 08/18 grew GPC, GBS. On admission 08/22 she was placed on IV vanco, levaquin, flagyl. MRI L foot 08/22 without reported evidence of OM. 08/23 she underwent IANDD, bone biopsy. 08/23 cultures with MSSA, GBS, bone bx preliminary was negative. Antibiotic regimen tailored to cefepime and flagyl and thereafter modified to oral regimen of bactrim/flagyl/keflex. Bactrim and flagyl were d/c after pt experienced N/V. She was continued on keflex (course to be completed 09/02/18), wound VAC to L foot, and discharged 08/25 to [facility] where she was to be followed by her Pharmacy Operations Specialist. Repeat XR L foot with no sign of infection. XR R foot with new metatarsal lucency. 08/29/2018 MRI right foot with right foot plantar abscess, Dr. Allen recommended transfer to [facility]. The patient was HDS and afebrile on admission to [facility]. Podiatry and ID were consulted. ASSESSMENT AND PLAN Assessment AND Plan, all Hosp Problems Active Hospital Problems as of 08/31/2018 Noted - Resolved Hospital Wound infection 08/30/2018 - Present Current Assessment AND Plan Presented as a transfer from [facility] for further management of b/l diabetic foot ulcers. Followed in [place], [place] by Podiatry, Dr. Allen 08/18 pt seen in office with Dr. Allen and noted to have new b/l ulcers. Pt had presented to OSH the day prior 08/17 with pain to b/l feet and complaint of ulcerations for ~ 2 weeks. She was given antibiotics and d/c. Per Dr. Allen's documentation on 08/18 office visit: Full thickness debridement of b/l foot ulceration thru dermis, epidermis, subcutaneous tissue was performed with tissue nippers and 15 blade. Wound culture was sent of left foot given vinicius-wound erythema. There is no fluctuance or drainage present. She is on doxycycline. She iwll continue. Will monitor culture results. She was placed in boot with peg assisted offloading, wheelchair, and advised to complete daily dressing changes with silvercel. She was advised to return 08/22 for follow-up. On 08/22, L foot ulcer with concern for abscess, referred for admission to [facility]. Cultures from 08/18 grew GPC, GBS. On admission 08/22 she was placed on IV vanco, levaquin, flagyl. MRI L foot 08/22 without reported evidence of OM. 08/23 she underwent IANDD, bone biopsy. 08/23 cultures with MSSA, GBS, bone bx preliminary was negative. Antibiotic regimen tailored to cefepime and flagyl and thereafter modified to oral regimen of bactrim/flagyl/keflex. Bactrim and flagyl were d/c after pt experienced N/V. She was continued on keflex (course to be completed 09/02/18), wound VAC to L foot, and discharged 08/25 to SNF where she was to be followed by her Pharmacy Operations Specialist. Repeat XR L foot with no sign of infection. XR R foot with new metatarsal lucency. 08/29/2018 MRI right foot with right foot plantar abscess Dr. Allen recommended transfer to [facility] Pt HDS and afebrile on arrival to [facility] Plan: Consult to Podiatry and ID, appreciate recs Outside imaging uploaded, request to Radiology for 2nd read, spoke with Radiology, Dr. Lewis, today 08/31 and plan for 2nd read this afternoon Wet-to-dry dressing for now to L foot, Podiatry to place VAC Hold off antibiotic therapy for now NWB for now, may pivot R heel Elevate b/l LE PT/OT Uncontrolled type 2 diabetes with neuropathy (HCC) 05/23/2015 - Present Current Assessment AND Plan IDDM, home regimen lantus 30 units and humalog 15u/meal HgbA1c 12.2% Non-compliant with diet Plan: Continue home regimen and uptitrate insulin as warranted SSI Hypoglycemia protocol Carb-controlled diet DM education Diabetic polyneuropathy associated with type 2 diabetes mellitus (HCC) 06/02/2007 - Present Current Assessment AND Plan Polyneuropathy in uncontrolled DM Diminished sensation in stocking/glove pattern Plan: Continue neurontin 800mg TID Charcot foot due to diabetes mellitus (HCC) 06/21/2018 - Present Hyperlipidemia 08/30/2018 - Present Current Assessment AND Plan Continue crestor Restless legs syndrome (RLS) 06/02/2007 - Present Current Assessment AND Plan Continue requip Blurry vision 08/31/2018 - Present Current Assessment AND Plan Pt reports today 08/31 b/l blurry vision x 4 days No eye pain, drainage, itching Plan: Coordinate evaluation with ophthal Glucose control as above Medication and Non-Pharmacologic VTE Prophylaxis/Anticoagulants 08/30/18 1345 pneumatic compression stockings (tx,oh) VTE Prophylaxis: VTE prophylaxis appropriate Plan of care discussed with: Attending, Patient, RN and Consultants: Radiology, Ophthal SIGNATURE: Dinorah Bermudez APRN.CNP PATIENT NAME: Diony Carrillo DATE: August 31, 2018 TIME: 10:39 AM PAGER/CONTACT #: [phone] COMP METABOLIC PANEL Collected: 08/31/2018 Status: F Source: [place] 5:57 AM [facility] [place] REPOSITORY TYPE CODE TESTS RESULT OUT OF REFERENCE UNITS RANGE LAB TP 6.3-8.0 g/dL Protein, Total 6.7 LAB ALB 3.9-4.9 g/dL Low Albumin 3.3 LAB CA 8.5-10.2 mg/dL Calcium, Total 9.1 LAB TBIL 0.2-1.3 mg/dL Low Bilirubin, Total <0.2 LAB ALKP 34-123 U/L Alkaline Phosphatase 85 LAB AST 13-35 U/L AST High 62 LAB GLU 74-99 mg/dL Glucose High 253 Result Comment: The [place] Diabetes Association (ADA) provides guidance for cutoff values for fasting glucose and random glucose. The ADA defines fasting as no caloric intake for at least 8 hours. Fas ting plasma glucose results between 100 to 125 mg/dL indicate increased risk for diabetes (prediabetes). Fasting plasma glucose results greater than or equal to 126 mg/dL meet the criteria for diagnosis of diabetes. In the absence of unequivocal hyperglycemia, results should be confirmed by repeat testing. In a patient with classic symptoms of hyperglycemia or hyperglycemic crisis, random plasma glucose results greater than or equal to 200 mg/dL meet the criteria for diagnosis of diabetes. Reference: Standards of Medical Care in Diabetes 2016, [place] Diabetes Association. Diabetes Care. 2016.39(Suppl 1). LAB BUN 7-21 mg/dL BUN 16 LAB CRET 0.58-0.96 mg/dL Creatinine 0.86 LAB NA 136-144 mmol/L Sodium 137 LAB K 3.7-5.1 mmol/L Potassium 4.8 LAB CL 97-105 mmol/L Chloride 99 LAB CO2 22-30 mmol/L CO2 26 LAB AGAP 9-18 mmol/L Anion Gap 12 LAB ALT 7-38 U/L ALT High 68 LAB GFRAA eGFR- Amer. >60 LAB GFRNAA . eGFR-All Other Races >60 Result Comment: eGFR (Estimated GFR) Units of measure: mL/min/1.73 meters squared eGFR is derived from the reexpressed MDRD Study equation using the following parameters: serum creatinine, age, gender and race. The creatinine assay has been calibrated to be traceable to IDMS. An eGFR <60 mL/min/1.73m2 for >3 months is consistent with chronic kidney disease. Refer to KDOQI guidelines for clinical interpretation. In patients with unstable renal function, e.g. those with acute kidney injury, the eGFR may not accurately reflect actual GFR. Performed By: #### CMP, CBCDIF #### [facility] [address] [place], [place] [address] CBC AND DIFFERENTIAL Collected: 08/31/2018 Status: F Source: [place] 5:57 AM [facility] REPOSITORY TYPE CODE TESTS RESULT OUT OF REFERENCE UNITS RANGE LAB WBC 3.70-11.00 k/uL WBC 10.89 LAB RBC 3.90-5.20 m/uL Low RBC 3.67 LAB HGB 11.5-15.5 g/dL Low Hemoglobin 10.4 LAB HCT 36.0-46.0 % Low Hematocrit 32.9 LAB MCV 80.0-100.0 fL MCV 89.6 LAB MCH 26.0-34.0 pG MCH 28.3 LAB MCHC 30.5-36.0 g/dL MCHC 31.6 LAB RDWCV 11.5-15.0 % RDW-CV 12.9 LAB PLTCT 150-400 k/uL Platelet Count 314 LAB MPV 9.0-12.7 fL MPV 10.6 LAB ANEUT % Neut% 72.5 LAB AANEUT 1.45-7.50 k/uL Abs Neut High 7.90 LAB ALYMP % Lymph% 17.4 LAB AALYMP 1.00-4.00 k/uL Abs Lymph 1.89 LAB AMONO % [place]% 7.4 LAB AAMONO <0.87 k/uL Abs [place] 0.81 LAB AEOS % Eosin% 2.1 LAB AAEOS <0.46 k/uL Abs Eosin 0.23 LAB ABASO % Baso% 0.6 LAB AABASO <0.11 k/uL Abs Baso 0.06 LAB AUNRBC 0 /100 WBC NRBCs 0.0 LAB ABNRBC <0.01 k/uL Absolute nRBC <0.01 LAB DTYP DTYPE Auto Diff Performed By: #### CMP, CBCDIF #### [facility] [address] [place], [place] [address] HISTORY PHYSICAL Observed: 08/30/2018 Status: COMPLETED Source: [place] 4:27 PM [facility] REPOSITORY HNO ID: [id number] Author: Dinorah Bermudez Service: Hospital Medicine Author Type: Nurse Practitioner Type: HANDP Filed: 08/30/2018 5:25 PM Note Text: Attestation signed by Ethan Sanchez at 08/31/2018 4:43 PM [facility] STAFF PHYSICIAN NOTE OF PERSONAL INVOLVEMENT IN CARE I have reviewed the history and physical examination obtained and documented by the resident and I personally participated in the rodriguez components. I have discussed the case and management of the patient's care. The following comments revise or confirm relevant rodriguez components of the note. 53 yo, obese wf with htn uncontrolled dm prior diabetic neuropathy/charcots' prior rt 5th ray amputation medical non-compliance transfered from [facility] for further management of bilaeral diabetic foot ulcers. seen her pods doc for her new b/l ulcers of ~ 2 weeks(08/18) and was debrided and on f/u admitted to [facility] on 08/22 after the culture from 08/18 grew gpcs, gbs and was rxed with on iv vanco/levaquin/ flagyl and an mri foot was done: which was without evidence of om, but was subjected to IANDd / bone biopsy on 08/23 with c/s with mssa, gbs with , bone bx preliminary was negative-> abx changed to cefepime/flagyl--> to oral bactrim/flagyl/keflex( first 2 were d/betsy after sideeffects) and keflex was continued till 09/02 with wound vac to L foot, and discharged on 08/25 to snf. an mri on 08/29 (after earlier xrays showed ?lucency) to right foot with suggested plantar abscess and pt was transfered to [facility] for further rx -podiatry was called -id input requested -will follow closely Ethan Sanchez MD 4:42 PM [facility] MEDICINE HISTORY AND PHYSICAL EXAM SERVICE DATE: 08/30/2018 SERVICE TIME: 14:30 Primary Care Physician: Alessandro Eric MD NIGHT AND WEEKEND COVERAGE: Days: [phone], please page me for patient issues. Nights: [phone], please page Team [facility] 2 - 8th floor: [phone] Subjective CHIEF COMPLAINT: B/l foot ulcers HPI: Diony Carrillo is a 53 year-old female with PMH significant for uncontrolled DM2 (HgbA1c 12.2%), diabetic neuropathy, s/p R fifth ray amputation, Charcot deformities b/l, medical non-compliance, hyperlipidemia, restless leg syndrome, who presented as a transfer from [facility] for further management of b/l diabetic foot ulcers. History obtained from patient, outside records, Epic review. The patient is followed in [place], [place] by Podiatry, Dr. Allen, for b/l foot ulcers. On 08/18 pt seen in office with Dr. Allen and noted to have new b/l ulcers. Per Dr. Allen's documentation, pt had presented to OSH the day prior 08/17 with pain to b/l feet and complaint of ulcerations for ~ 2 weeks. She was given antibiotics and d/c. Per Dr. Allen's documentation on 08/18 office visit: Full thickness debridement of b/l foot ulceration thru dermis, epidermis, subcutaneous tissue was performed with tissue nippers and 15 blade. Wound culture was sent of left foot given vinicius-wound erythema. There is no fluctuance or drainage present. She is on doxycycline. She iwll continue. Will monitor culture results. She was placed in boot with peg assisted offloading, wheelchair, and advised to complete daily dressing changes with silvercel. She was advised to return 08/22 for follow-up. On 08/22, L foot ulcer with concern for abscess, referred for admission to [facility]. Cultures from 08/18 grew GPC, GBS. On admission 08/22 she was placed on IV vanco, levaquin, flagyl. MRI L foot 08/22 without reported evidence of OM. 08/23 she underwent IANDD, bone biopsy. 08/23 cultures with MSSA, GBS, bone bx preliminary was negative. Antibiotic regimen tailored to cefepime and flagyl and thereafter modified to oral regimen of bactrim/flagyl/keflex. Bactrim and flagyl were d/c after pt experienced N/V. She was continued on keflex (course to be completed 09/02/18), wound VAC to L foot, and discharged 08/25 to SNF where she was to be followed by her Pharmacy Operations Specialist. Repeat XR L foot with no sign of infection. XR R foot with new metatarsal lucency. 08/29/2018 MRI right foot with right foot plantar abscess, Dr. Allen recommended transfer to [facility]. The patient was HDS and afebrile on admission to [facility]. PAST MEDICAL HISTORY Diagnosis Date - Chronic depressive personality disorder - Degenerative disc disease - Diabetes mellitus without mention of complication Diabetes mellitus - Fallen arches (Broken) on both sides - Polyneuropathy in diabetes(357.2) - Restless legs syndrome (RLS) PAST SURGICAL HISTORY Procedure Laterality Date - DELIVERY ONLY , low cervical - EGD W/O OR W/BRUSH/WASH 05/10/2012 EGD - LIGATE FALLOPIAN TUBE Tubal ligation - PAST SURGICAL HISTORY OF removal right 5th metatarsal - PICC LINE INSERT/CONSULT 06/14/2014 - REPAIR ROTATOR CUFF,ACUTE 1997 Rotator cuf repair right, Dr Alvarado - [facility] N/CARPAL TUNNEL SURG 1996 Carpal tunnel decomp, right, Dr Christiano CHAMORRO MEDIAN N/CARPAL TUNNEL SURG 2008 Carpal tunnel decomp, LEFT FAMILY HISTORY Problem Relation Age of Onset - Hypertension Mother - Diabetes Mother - Stroke Mother - Diabetes Sister - Diabetes Brother X-3 - Heart Brother X-3 - Breast Cancer Paternal Aunt x5 - Cancer Brother testicular, Social History Substance Use Topics - Smoking status: Never Smoker - Smokeless tobacco: Never Used - Alcohol use No MEDICATIONS: Reviewed Prescriptions Prior to Admission: insulin glargine (LANTUS SOLOSTAR U-100 INSULIN) 100 unit/mL (3 mL) inpn Inject 30 Units subcutaneously twice daily. Disp: Rfl: 08/30/2018 at Unknown time oxyCODONE IR (ROXICODONE) 5 mg immediate release tablet Take 1 tablet by mouth every 8 hours as needed. Disp: Rfl: 0 08/30/2018 at Unknown time gabapentin (NEURONTIN) 800 mg tablet Take 1 tablet by mouth three times daily for 30 days. Disp: 90 tablet Rfl: 0 08/30/2018 at Unknown time insulin aspart U-100 (NOVOLOG FLEXPEN U-100 INSULIN) 100 unit/mL inpn Inject 15 Units subcutaneously three times daily with meals. Disp: 135 Pen Rfl: 0 08/30/2018 at Unknown time Blood-Glucose Meter (ACCU-CHEK MEGAN CONNECT METER) misc 1 Units as directed. Dx: E11.40 Disp: 1 Each Rfl: 0 08/30/2018 at Unknown time rOPINIRole Hydrochloride 3 mg tablet Take 1 tablet by mouth twice daily. Disp: 180 tablet Rfl: 1 08/30/2018 at Unknown time rosuvastatin (CRESTOR) 40 mg tablet Take 1 tablet by mouth once daily. Disp: 90 tablet Rfl: 1 08/30/2018 at Unknown time insulin needles, DISPOSABLE, (PEN NEEDLE) 31 gauge x 5/16 ndle Use as directed four times daily Disp: 400 Each Rfl: 3 08/30/2018 at Unknown time ascorbic acid, vitamin C, (VITAMIN C) 500 mg tablet Take 1 tablet by mouth twice daily. Take with iron (ferrous sulfate). Disp: 60 tablet Rfl: 0 08/30/2018 at Unknown time blood sugar diagnostic (ACCU-CHEK MEGAN) test strip Test blood sugar(s) 3-4 times daily. Dx: Type 1 DM - Uncontrolled E 10.65 Insulin: Yes Disp: 100 Strip Rfl: 11 08/30/2018 at Unknown time blood sugar diagnostic (ACCU-CHEK MEGAN PLUS TEST STRP) test strip Check blood sugar readings 2-3 times daily and as needed. Insulin dependent. Dx: E11.40 Disp: 100 Strip Rfl: 08/30/2018 at Unknown time Lancets (ACCU-CHEK MULTICLIX LANCET) lancets Check blood sugar readings 2-3 times daily. Insulin dependent. Dx: E11.40 Disp: 100 Each Rfl: 11 08/30/2018 at Unknown time Blood-Glucose Meter (BLOOD GLUCOSE MONITORING) monitoring kit 1 Each as needed. Disp: 1 Each Rfl: 0 08/30/2018 at Unknown time Lancets lancets Test 2-3 times a day Disp: 100 Each Rfl: 0 08/30/2018 at Unknown time psyllium (KONSYL) packet Take 1 Packet by mouth once daily. Disp: Rfl: promethazine (PHENERGAN) 25 mg tablet Take 1 tablet by mouth every 6 hours as needed. Disp: Rfl: Unknown at Unknown time magnesium oxide (MAG-OX) 400 mg tablet Take 1 tablet by mouth twice daily. Disp: 60 tablet Rfl: 2 Unknown at Unknown time omeprazole (PRILOSEC) 20 mg capsule Take 1 capsule by mouth daily before breakfast. 1/2 hr before meal. Disp: 30 capsule Rfl: 11 Unknown at Unknown time ergocalciferol, vitamin D2, (DRISDOL) 50,000 unit capsule Take 1 capsule by mouth once each week. Disp: 12 capsule Rfl: 0 Unknown at Unknown time ALLERGIES Allergen Reactions - Oxycontin [Oxycodon* itch - Penicillins Hives - Requip [Ropinirole] Intolerance Vomiting, panic attacks, itching REVIEW OF SYSTEM: PAIN ASSESSMENT: + acute pain from L foot surgical site. GENERAL: No weight loss, malaise or fevers HEENT: Negative for frequent or significant headaches, No changes in hearing or vision, no nose bleeds or other nasal problems NECK: Negative for lumps, goiter, pain and significant neck swelling RESPIRATORY: Negative for cough, hemoptysis, wheezing, COPD, dyspnea or shortness of breath CARDIOVASCULAR: Negative for chest pain, leg swelling, hypertension, CHF or palpitations GI: No nausea, vomiting, or diarrhea : No history of dysuria, frequency or incontinence MUSCULOSKELETAL: Negative for joint pain or swelling, back pain or muscle pain SKIN: Negative for lesions, rash, and itching PSYCH: + anxiety, depression. HEMATOLOGY/LYMPHOLOGY: Negative for prolonged bleeding, bruising easily or swollen nodes ENDOCRINE: Negative for cold or heat intolerance, goiter NEURO: No history of headaches, syncope, paralysis, seizures or tremors Objective PHYSICAL EXAM: BP 135/75 Pulse 80 Temp (Src) 98.1 (Oral) Resp 16 SpO2 92% Physical Exam Performed: GENERAL: Alert, no distress, cooperative. Obese SKIN: Skin color, texture, turgor normal. HEAD/SINUSES: No significant findings EYES: PERRLA, EOMI EARS: External ears normal, canals clear NOSE: Nares normal. Septum midline. OROPHARYNX: Lips, mucosa, and tongue normal. Teeth and gums normal. Oropharynx normal. NECK: No jugulovenous distention, No carotid bruits, Carotid pulse normal contour, Supple BACK: Back symmetric, Normal curvature, ROM normal, No CVAT. LUNGS: Lungs clear to auscultation, Good diaphragmatic excursion CARDIAC: Normal S1 and S2; no rubs, murmurs, or gallops ABDOMEN: Abdomen soft, non-tender, BS normal, No masses or organomegaly EXTREMITIES: b/l LE generalized edema. B/l foot charcot deformities. 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 R plantar superficial wound. L foot surgical wound with granulation tissue present. NEURO: diminished sensation b/l feet to level of mid-ruiz. Diminished sensation to b/l palms. Cranial nerves II-XII intact PULSES: 2+ radial, 2+ carotid Lines, Drains, and Airways No matching active lines, drains, or airways Reviewed lines, drains, AND airways. Need to be continued needs peripheral IV placed DATA: Diagnostic tests reviewed for today's visit: Most recent labs and imaging results. Assessment/Plan Active Hospital Problems as of 08/30/2018 Noted - Resolved Hospital Wound infection 08/30/2018 - Present Current Assessment AND Plan Presented as a transfer from [facility] for further management of b/l diabetic foot ulcers. Followed in [place], [place] by Podiatry, Dr. Allen 08/18 pt seen in office with Dr. Allen and noted to have new b/l ulcers. Pt had presented to OSH the day prior 11/8 with pain to b/l feet and complaint of ulcerations for ~ 2 weeks. She was given antibiotics and d/c. Per Dr. Allen's documentation on 08/18 office visit: Full thickness debridement of b/l foot ulceration thru dermis, epidermis, subcutaneous tissue was performed with tissue nippers and 15 blade. Wound culture was sent of left foot given vinicius-wound erythema. There is no fluctuance or drainage present. She is on doxycycline. She iwll continue. Will monitor culture results. She was placed in boot with peg assisted offloading, wheelchair, and advised to complete daily dressing changes with silvercel. She was advised to return 08/22 for follow-up. On 08/22, L foot ulcer with concern for abscess, referred for admission to [facility]. Cultures from 08/18 grew GPC, GBS. On admission 08/22 she was placed on IV vanco, levaquin, flagyl. MRI L foot 08/22 without reported evidence of OM. 08/23 she underwent IANDD, bone biopsy. 08/23 cultures with MSSA, GBS, bone bx preliminary was negative. Antibiotic regimen tailored to cefepime and flagyl and thereafter modified to oral regimen of bactrim/flagyl/keflex. Bactrim and flagyl were d/c after pt experienced N/V. She was continued on keflex (course to be completed 09/02/18), wound VAC to L foot, and discharged 08/25 to SNF where she was to be followed by her Pharmacy Operations Specialist. Repeat XR L foot with no sign of infection. XR R foot with new metatarsal lucency. 08/29/2018 MRI right foot with right foot plantar abscess Dr. 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) 05/23/2015 - Present Current Assessment AND Plan IDDM, home regimen lantus 30 units and humalog 15u/meal HgbA1c 12.2% Non-compliant with diet Plan: Continue home regimen and uptitrate insulin as warranted SSI Hypoglycemia protocol Carb-controlled diet DM education Diabetic polyneuropathy associated with type 2 diabetes mellitus (HCC) 06/02/2007 - Present Current Assessment AND Plan Polyneuropathy in uncontrolled DM Diminished sensation in stocking/glove pattern Plan: Continue neurontin 800mg TID Charcot foot due to diabetes mellitus (HCC) 06/21/2018 - Present Hyperlipidemia 08/30/2018 - Present Current Assessment AND Plan Continue crestor Restless legs syndrome (RLS) 06/02/2007 - Present Current Assessment AND Plan Continue requip Medication and Non-Pharmacologic VTE Prophylaxis/Anticoagulants 08/30/18 1345 pneumatic compression stockings (fl,oh) VTE Prophylaxis: VTE prophylaxis appropriate Disposition: TBD Plan of care discussed with: Attending, Patient, Case Management, RN and Consultants: Podiatry SIGNATURE: Dinorah Bermudez APRN.CNP PATIENT NAME: Diony Carrillo DATE: August 30, 2018 TIME: 4:27 PM PAGER/CONTACT #: [phone] etx [phone] CONSULT Observed: 08/30/2018 Status: COMPLETED Source: [place] 4:04 PM [facility] [place] REPOSITORY HNO ID: [id number] Author: Sarah Simons Service: Podiatry Author Type: Physician Type: Consults Filed: 08/31/2018 10:15 AM Note Text: PODIATRIC MEDICINE AND SURGERY CONSULT HISTORY AND PHYSICAL PODIATRY STAFF [employer] PROFESSOR: Sarah Simons DPM Please first [place] [phone]/ with questions/concerns. Consulting Service: Medicine Requesting Provider: ETHAN SANCHEZ Opinion/advice regarding: Foot ulcer ASSESSMENT: 53 year old female with past medical history significant for uncontrolled DM2 (HgbA1c 12.2%), diabetic neuropathy, s/p R fifth ray amputation, Charcot deformities b/l, hyperlipidemia, restless leg syndrome with wound to b/l feet . PLAN AND RECOMMENDATIONS: - Patient appears stable at this time. Right foot does not appear to be acutely infected. Attempted bedside IANDD on the right, unsuccesful with no purulence. Discussed with patient a potential bursitis or abscess to the R. MRI will need to be read prior to decision of surgical intervention. Hold antibiotics for now, due to potential need for IANDD and cultures. - Order was placed for 2nd MRI read by radiology, might need repeat MRI depending on the read - Order was placed for veraflo vac on the left foot with dakins - B/L foot dressing temporarily with saline wet to dry and gauze and kerlix . Dressing should remain clean, dry, and intact. Podiatry will perform dressing changes - NWB to B/L LE. May use right heel to pivot to bedside camode. - Elevate B/L LE at or above the level of the heart. - Pain management per primary team. - Podiatry will continue to follow. HPI: Patient is a 53 year old female who was admitted for possible abscess to right foot. Followed by Dr. Allen Patient was seen in office 08/[address] Allen and noted to have new b/l ulcers. Patient had presented to OSH the day prior 08/17 with pain to b/l feet and complaint of ulcerations for ~ 2 weeks. She was given antibiotics and d/c. Wound was debrided in office 08/18 and cultures were taken and placed in offloading shoe. She was advised to return 08/22 for follow-up. On 08/22, L foot ulcer with concern for abscess, referred for admission to [facility]. On admission 08/22 she was placed on IV vanco, levaquin, flagyl. MRI L foot 08/22 without reported evidence of OM. 08/23 she underwent IANDD, bone biopsy. 08/23 cultures with MSSA, GBS, bone bx preliminary was negative. Patient was given bactrim, flagyl and keflex. Patient was nauseated on bactrim and flagyl and they were discontinued. Patient was put on a wound vac for her left foot while at [facility]. Patient was discharged to SNF 08/25, xrays b/l ordered, L foot with no signs osseous signs of infection. Xray R foot showed metatarsal lucency. MRI taken on 08/29 revealed right foot plantar abscess. Podiatric consultation was requested for abscess. Patient denies fever, chills, chest pain, shortness of breath, and diarrhea. Does state she has been having some nausea. PAST MEDICAL HISTORY Diagnosis Date - Chronic depressive personality disorder - Degenerative disc disease - Diabetes mellitus without mention of complication Diabetes mellitus - Fallen arches (Broken) on both sides - Polyneuropathy in diabetes(357.2) - Restless legs syndrome (RLS) PAST SURGICAL HISTORY Procedure Laterality Date - DELIVERY ONLY , low cervical - EGD W/O OR W/BRUSH/WASH 05/10/2012 EGD - LIGATE FALLOPIAN TUBE Tubal ligation - PAST SURGICAL HISTORY OF removal right 5th metatarsal - PICC LINE INSERT/CONSULT 06/14/2014 - REPAIR ROTATOR CUFF,ACUTE 1996 Rotator cuf repair right, Dr Alvarado - PEDRO PABLO MEDIAN N/CARPAL TUNNEL SURG 1996 Carpal tunnel decomp, right, Dr Christiano CHAMORRO MEDIAN N/CARPAL TUNNEL SURG 2008 Carpal tunnel decomp, LEFT Current hospital medications: NaCl 0.9% 3-5 mL 3-5 mL INTRAVENOUS q 12 H NaCl 0.9% 2-10 mL 2-10 mL INTRAVENOUS q 12 H acetaminophen 650 mg tab(s) (TYLENOL) 650 mg ORAL q 6 H PRN docusate sodium 100 mg cap(s) (COLACE) 100 mg ORAL BID PRN gabapentin 800 mg tab(s) (NEURONTIN) 800 mg ORAL TID promethazine 12.5 mg tab(s) (PHENERGAN) 12.5 mg ORAL q 6 H PRN rosuvastatin 40 mg tab(s) (CRESTOR) 40 mg ORAL DAILY rOPINIRole 3 mg tab(s) (REQUIP) 3 mg ORAL BID insulin lispro 15 Units injection (rapid acting) (HumaLOG) 15 Units SUBCUTANEOUS TID w MEALS [START ON 08/31/2018] insulin glargine 30 Units pen (long acting) (LANTUS SOLOSTAR, BASAGLAR KWIKPEN) 30 Units SUBCUTANEOUS DAILY (8 AM) oxyCODONE IR 5 mg tab(s) (ROXICODONE) 5 mg ORAL q 6 H PRN [START ON 08/31/2018] pantoprazole DR 20 mg tab(s) (PROTONIX) 20 mg ORAL BEFORE BREAKFAST DAILY ascorbic acid (vitamin C) 500 mg tab(s) (VITAMIN C) 500 mg ORAL BID w MEALS dextrose 40 % 15 g 15 g ORAL PRN glucagon 1 mg injection (GLUCAGEN) 1 mg INTRAMUSCULAR PRN dextrose 50 % 12.5 g injection 12.5 g INTRAVENOUS PRN insulin lispro injection (rapid acting) (HumaLOG) SUBCUTANEOUS w MEALS ALLERGIES Allergen Reactions - Oxycontin [Oxycodon* itch - Penicillins Hives - Requip [Ropinirole] Intolerance Vomiting, panic attacks, itching FAMILY HISTORY Problem Relation Age of Onset - Hypertension Mother - Diabetes Mother - Stroke Mother - Diabetes Sister - Diabetes Brother X-3 - Heart Brother X-3 - Breast Cancer Paternal Aunt x5 - Cancer Brother testicular, Social History Marital status: Single Spouse name: Maximus Years of education: 13 Number of children: 2 Occupational History 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 Social History Main Topics Smoking status: Never Smoker Smokeless tobacco: Never Used Alcohol use: No Drug use: No Sexual activity: Yes Partners with: Male control/protection: Tubal Ligation REVIEW OF SYSTEMS: General: no fever, chills or acute changes in weight in the last 6 months Skin: no rashes, pruritis or dry skin Eyes: no blurred or double vision or eye pain Cardiac: denies chest pain, heart palpitations or orthopnea Pulmonary: denies wheezing, productive cough or exertional dyspnea GI: nausea Neuro: numbness/tingling in feet Musc: denies history of upper or lower extremity weakness Endocrine: denies polyuria, polydipsia, nocturia, blurry vision or excessive fatigue Hematology: Negative for anemia, easy bleeding and bruising. OBJECTIVE: BP 135/75 Pulse 80 Temp 36.7 ?C (98.1 ?F) (Oral) Resp 16 SpO2 92% GENERAL: Alert and oriented to person, place, and time No acute distress VASCULAR: Dorsalis pedis and posterior tibial pulses are palpable bilaterally Skin temperature is warm to warm from the tibial tuberosity to the toes bilaterally Hair growth noted to the toes bilaterally Plantar lateral edema bilaterally R>L NEUROLOGIC: Gross sensation diminshed to touch at the foot bilaterally Protective sensation via [place]rain monofilament testing is not-intact bilaterally MUSCULOSKELETAL: Structural Deformities: B/L partial 5th ray resection 5/5 muscle strength for dorsiflexion, plantarflexion, abduction, and adduction on the right and deferred muscle strength on the left due to pain. Ankle joint ROM decreased bilaterally Pain on palpation to lateral fluid mass, pain to left foot surrounding incision site. INTEGUMENTARY: Surgical wound with sutures in place noted on the left Possible fluctuant mass noted to plantar lateral right foot. Verbal consent obtained prior to obtaining photo. All efforts were made to exclude PHI. LABS: Recent Labs 08/30/18 1447 WBC 8.48 HB 10.9* HCT 34.6* PLT 369 CRP Date Value Ref Range Status 04/19/2016 0.5 0.0 - 1.0 mg/dL Final WSR Date Value Ref Range Status 04/19/2016 24 (H) 0 - 15 mm/hr Final PT INR Date Value Ref Range Status 08/30/2018 1.0 0.9 - 1.3 Final Comment: Vitamin K Antagonist (VKA) Therapeutic Range: INR 2 to 3 (Target INR of 2.5) Note: For patients treated with VKA drugs, such as warfarin, the [place] [employer] 2012 Guideline recommends a therapeutic INR range of 2 to 3 (target INR of 2.5). This recommendation includes high-risk patients with antiphospholipid syndrome with previous arterial or venous thromboembolism, current-generation mechanical or bioprosthetic aortic heart valve replacement. Note: Patients with mechanical aortic valve replacement and additional risk factors for thromboembolic events (atrial fibrillation, previous thromboembolism, LV dysfunction, hypercoagulable conditions) or an older generation mechanical AVR (i.e., ball in-Cage) or any mechanical MVR should have a INR therapeutic range of 2.5 to 3.5 (target INR of 3). Celso GH, et al. Chest 2012, 141:7S-47S Luda RA, et al. [facility] 2017, 70: 252-289 APTT Date Value Ref Range Status 08/30/2018 25.1 23.0 - 32.4 sec Final Comment: Unfractionated Heparin Therapeutic Ranges: Standard Heparin Nomogram: 53 to 78 seconds (anti-Xa level of 0.3 to 0.7 U/ml) Low Dose/ACS Nomogram: 49 to 67 seconds (anti-Xa level of 0.2 to 0.5 U/ml) Stroke Treatment Nomogram: 49 to 67 seconds (anti-Xa level of 0.2 to 0.5 U/ml) Note: The APTT therapeutic range has been determined for the current lot of laboratory APTT reagent in use throughout the [facility]. Hemoglobin A1C (%) Date Value 08/02/2018 12.2 03/03/2017 12.4 11/26/2016 11.2 01/01/2016 11.2 09/29/2015 13.1 MICROBIOLOGY: 08/23 IANDD cultures with MSSA, GBS, bone bx preliminary was negative. IMAGING: XRAY and MRI from OSH 08/29/2018 MRI right foot with right foot plantar abscess VASCULAR STUDIES: n/a Tray Hammond DPM, PGY-1 Please first [place] [phone] with questions/concerns. August 30, 2018 4:[address] [facility] STAFF PHYSICIAN NOTE OF PERSONAL INVOLVEMENT IN CARE I have reviewed the progress note obtained and documented by the resident and I personally participated in the rodriguez components. I have discussed the case and management of the patient's care with the resident and am in agreement with the plan. On exam, there are no clinical signs of infection to the right foot. Patient has had recent history of injury to the right foot and well as history of charcot to the b/l foot. The ulceration to the right foot is less than 1.0 cm in diameter, is limited to breakdown of skin, and there is a large osseous prominence deep to the ulceration. Clinical suspicion of an adventitial bursa seen on MRI of the right foot and not and abscess. Recommend infectious disease consult and radiology 2nd read of the right foot MRI. Left foot continue wound vac of left foot ulceration s/p OR debridement by Dr. Allen. Thank you for the consult. SIGNATURE: Sarah Simons DPM PAGER: [phone] DATE of SERVICE: August 31, 2018 TIME of SERVICE: 10:10 AM CONSULT Observed: 08/30/2018 Status: COMPLETED Source: [facility] 3:32 PM [facility] REPOSITORY O ID: [id number] Author: Courtney Mcclellan Service: Infectious Disease Author Type: Physician Type: Consults Filed: 08/31/2018 11:13 AM Note Text: INITIAL CONSULT INFECTIOUS DISEASE SERVICE DATE: 08/30/2018 SERVICE TIME: 3:33pm We were asked to evaluate Ms. Diony Carrillo, a 53 year old yo female by Dr. Sanchez for diabetic foot infection. Our findings and recommendations will be communicated through the shared medical record. Subjective HPI: Ms. 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 Patient is followed by Dr. Allen outpatient podiatry. Patient had presented to OSH 08/17 with b/l ulcers and placed on doxy. Cultures taken on 08/18 grew GPC, GBS. On 08/22 she was admitted again for DFI and placed on vanc, flagyl, levaquin and on 08/23 underwent L IANDD with bone bx (negative) and wound vac application. She was placed on bactrim and flagyl with keflex added soon after. The bactrim and flagyl were d/c'd d/t nausea and vomiting nd the keflex was taken until 09/02. On 08/29 repeat MRI showed R foot abscess and XR showed new metatarsal lucency. She was transferred to [facility] for care. 08/30 bedside IANDD unsuccessful, looking for new in house read of MRI to confirm abscess. Admits to pain plantar lateral L foot. Currently denies f/c/n/v. CURRENT ANTIBIOTICS: Holding per podiatry Current other medications reviewed. Current Facility-Administered Medications: NaCl 0.9% 3-5 mL 3-5 mL INTRAVENOUS q 12 H NaCl 0.9% 2-10 mL 2-10 mL INTRAVENOUS q 12 H acetaminophen 650 mg tab(s) (TYLENOL) 650 mg ORAL q 6 H PRN docusate sodium 100 mg cap(s) (COLACE) 100 mg ORAL BID PRN promethazine 12.5 mg tab(s) (PHENERGAN) 12.5 mg ORAL q 6 H PRN insulin lispro 15 Units injection (rapid acting) (HumaLOG) 15 Units SUBCUTANEOUS TID w MEALS oxyCODONE IR 5 mg tab(s) (ROXICODONE) 5 mg ORAL q 6 H PRN ascorbic acid (vitamin C) 500 mg tab(s) (VITAMIN C) 500 mg ORAL BID w MEALS dextrose 40 % 15 g 15 g ORAL PRN Or glucagon 1 mg injection (GLUCAGEN) 1 mg INTRAMUSCULAR PRN Or dextrose 50 % 12.5 g injection 12.5 g INTRAVENOUS PRN insulin lispro injection (rapid acting) (HumaLOG) SUBCUTANEOUS w MEALS PAST MEDICAL HISTORY Diagnosis Date - Chronic depressive personality disorder - Degenerative disc disease - Diabetes mellitus without mention of complication Diabetes mellitus - Fallen arches (Broken) on both sides - Polyneuropathy in diabetes(357.2) - Restless legs syndrome (RLS) PAST SURGICAL HISTORY Procedure Laterality Date - DELIVERY ONLY , low cervical - EGD W/O OR W/BRUSH/WASH 05/10/2012 EGD - LIGATE FALLOPIAN TUBE Tubal ligation - PAST SURGICAL HISTORY OF removal right 5th metatarsal - PICC LINE INSERT/CONSULT 06/14/2014 - REPAIR ROTATOR CUFF,ACUTE 1996 Rotator cuf repair right, Dr Alvarado - [facility] MEDIAN N/CARPAL TUNNEL SURG 1996 Carpal tunnel decomp, right, Dr Alvarado - PEDRO PABLO MEDIAN N/CARPAL TUNNEL SURG 2008 Carpal tunnel decomp, LEFT Social History Marital status: Single Spouse name: Maximus Years of education: 13 Number of children: 2 Occupational History 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 Social History Main Topics Smoking status: Never Smoker Smokeless tobacco: Never Used Alcohol use: No Drug use: No Sexual activity: Yes Partners with: Male control/protection: Tubal Ligation FAMILY HISTORY Problem Relation Age of Onset - Hypertension Mother - Diabetes Mother - Stroke Mother - Diabetes Sister - Diabetes Brother X-3 - Heart Brother X-3 - Breast Cancer Paternal Aunt x5 - Cancer Brother testicular, ALLERGIES Allergen Reactions - Oxycontin [Oxycodon* itch - Penicillins Hives - Requip [Ropinirole] Intolerance Vomiting, panic attacks, itching Objective REVIEW OF SYSTEMS: GENERAL: Denies fever, chills, night sweats, or changes in weight. HEENT: Negative for frequent or significant headaches. No changes in hearing or vision, no nose bleeds or other nasal problems RESPIRATORY: Denies any cough, dyspnea, or wheezing. CARDIOVASCULAR: Denies any chest pain with exertion or at rest, palpitations, syncope, or edema. GASTROINTESTINAL: Denies nausea, vomiting, abdominal pain, heartburn, diarrhea or other changes in bowel habit. Denies melena. MUSCULOSKELETAL: Denies any joint swelling, crepitus, joint pain, or loss of range of motion. Denies back pain. NEURO: Denies any headaches, tremors, dizziness, vertigo, memory loss, or confusion. No weakness, numbness or tingling. HEMATOLOGY/LYMPHATIC/IMMUNOLOGIC: Denies anemia, bruising, bleeding abnormalities, HIV risk factors ENDOCRINE: Denies any heat or cold intolerance, polyuria or polydipsia. PHYSICAL EXAM:Temp (24hrs), Av.3 ?C (99.1 ?F), Min:37.3 ?C (99.1 ?F), Max:37.3 ?C (99.1 ?F) Temp (120hrs), Av.3 ?C (99.1 ?F), Min:37.3 ?C (99.1 ?F), Max:37.3 ?C (99.1 ?F) GENERAL APPEARANCE: Patient in no acute distress. SKIN: b/l partial 5th ray amputations with L surgical wound sutures in place. Fluctuant mass L plantar lateral L foot. Skin color, texture, turgor normal. No peripheral signs of infectious endocarditis HEAD/SINUSES: No significant findings. EYES: PERRLA, EOMI, conjunctivae clear. EARS: External ears normal. NOSE: Nares normal. Septum midline. OROPHARYNX: Lips, mucosa, and tongue normal. Teeth and gums normal. Oropharynx normal. NECK: Supple, full range of motion, no lymphadenopathy, normal thyroid, no carotid bruits, no JVD. BACK: no CVA tenderness, no spinal point tenderness, no paraspinal tenderness LUNGS: Normal breath sounds, clear to auscultation, percussion normal, no wheezes, or crackles. HEART: Normal PMI, Regular rate/rhythm, normal heart sounds, and no murmurs. ABDOMEN: Soft, non tender, no palpable masses, normal bowel sounds, no abdominal bruits, No hepatosplenomegaly. EXTREMITIES: TTP L plantar lateral foot No edema noted. NEURO: Awake, alert and oriented x3, no involuntary motions. LABS: WBC (k/uL) Date Value 08/02/2018 10.34 11/26/2016 8.19 01/01/2016 7.36 06/23/2015 9.66 06/18/2015 6.52 Creatinine (mg/dL) Date Value 08/02/2018 Test reordered by [facility]. 08/02/2018 0.85 11/26/2016 0.79 01/01/2016 0.70 06/23/2015 0.91 Lab Results Component Value Date NEUTP 80.1 08/02/2018 ABSNEUT 8.29 08/02/2018 LYMPHP 13.0 08/02/2018 ABSLYMPH 1.34 08/02/2018 ABSMONO 0.55 08/02/2018 EODINP 0.9 08/02/2018 ABSEOSIN 0.09 08/02/2018 BASOP 0.7 08/02/2018 ABSBASO 0.07 08/02/2018 Lab Results Component Value Date PLT 324 08/02/2018 HB 13.0 08/02/2018 HCT 40.6 08/02/2018 ALB Test reordered by [facility]. 08/02/2018 CA Test reordered by [facility]. 08/02/2018 TBILI Test reordered by [facility]. 08/02/2018 ALKPHOS Test reordered by [facility]. 08/02/2018 AST Test reordered by [facility]. 08/02/2018 GLUC Test reordered by [facility]. 08/02/2018 BUN Test reordered by [facility]. 08/02/2018 NA Test reordered by [facility]. 08/02/2018 K Test reordered by [facility]. 08/02/2018 CHLOR Test reordered by [facility]. 08/02/2018 CO2 Test reordered by [facility]. 08/02/2018 ANION Test reordered by [facility]. 08/02/2018 ALT Test reordered by [facility]. 08/02/2018 WSR (mm/hr) Date Value 04/19/2016 24 CRP (mg/dL) Date Value 04/19/2016 0.5 Vancomycin Pre (no units) Date Value 08/13/2014 6.2 08/07/2014 15.9 07/22/2014 9.3 07/15/2014 39.3 07/08/2014 18.2 Vancomycin, result (ug/mL) Date Value 06/05/2015 25.9 05/31/2015 22.6 05/29/2015 13.5 MICROBIOLOGY: WOUND CULTURE AND GRAM STAIN [[id number]] Microbiology Report ? Staphylococcus Aureus (VMIC) Clindamycin 0.25 Susceptible Doxycycline 4 Susceptible Erythromycin <=0.25 Susceptible Gentamicin <=0.5 Susceptible Oxacillin 0.5 Susceptible Rifampin <=0.5 Susceptible Tetracycline >=16 Resistant Trimeth sulfameth <=10 Susceptible Vancomycin <=0.5 Susceptible *Comments, please click link to view FOOT LEFT 08/18/2018 3:10 AM 08/22/2018 11:16 AM Smear Result: Few Gram positive cocci in pairs and chains Rare Polymorphonuclear leukocytes Culture: Moderate Streptococcus agalactiae (Group B streptococcus) Susceptibility testing not performed on beta hemolytic streptococci due to predictable susceptibility to penicillin and other beta lactams. For testing, call Microbiology within 72 hours. Moderate Staphylococcus aureus Rare skin lee ann Final result IMAGING: In house MRI read pending DATA: Diagnostic Tests Reviewed for Today's Visit: Most recent labs and imaging results. Impression Ms. 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 Recommendations To be d/w staff Thank you very much for inviting us to participate in the care of this patient. SIGNATURE: Barrett Reynaga DPM PATIENT NAME: Diony Carrillo DATE: August 30, 2018 TIME: 3:33 PM PAGER/CONTACT #: [phone] ID STAFF: I saw and evaluated the patient. I reviewed the History, Exam, and Assessment as documented by Dr. Reynaga. The following reflects my findings: agree fully with findings. Agree with holding abx until OR cxs can be obtained, then we can construct antibiotic plan. Courtney Mcclellan MD pager [phone] Observed: 08/30/2018 Status: F Source: [facility] BLOOD CULTURE 3:03 PM [facility] REPOSITORY Culture Result - No growth 5 days Performed By: #### BLCUL #### [facility] [address] [place], [place] [address] HEMOGLOBIN A1C Collected: 08/30/2018 Status: F Source: [facility] 2:50 PM [facility] REPOSITORY TYPE CODE TESTS RESULT OUT OF REFERENCE UNITS RANGE LAB HGBA1C 4.3-5.6 % High Hemoglobin A1c 11.7 Result Comment: [place] [employer] guidelines indicate that patients with HgbA1c in the range 5.7-6.4% are at increased risk for development of diabetes, and intervention by lifestyle modification may be beneficial. HgbA1c greater or equal to 6.5% is considered diagnostic of diabetes. LAB HBA0 mg/dL Est. Average Glucose 289 Result Comment: eAG: (Estimated average glucose) is a calculated value from HgbA1c and is service representative of the average blood glucose level in the last 2-3 month period. Performed By: #### HBA1C #### [facility] [employer] [address] [place], [place] [address] PROTIME Collected: 08/30/2018 Status: F Source: [facility] 2:49 PM [facility] REPOSITORY TYPE CODE TESTS RESULT OUT OF RANGE REFERENCE UNITS LAB PSEC 9.7-13.0 sec PT Sec 10.3 LAB INR 0.9-1.3 PT INR 1.0 Result Comment: Vitamin K Antagonist (VKA) Therapeutic Range: INR 2 to 3 (Target INR of 2.5) Note: For patients treated with VKA drugs, such as warfarin, the [place] [employer] 2012 Guideline recommends a therapeutic INR range of 2 to 3 (target INR of 2.5). This recommendation includes high-risk patients with antiphospholipid syndrome with previous arterial or venous thromboembolism, current-generation mechanical or bioprosthetic aortic heart valve replacement. Note: Patients with mechanical aortic valve replacement and additional risk factors for thromboembolic events (atrial fibrillation, previous thromboembolism, LV dysfunction, hypercoagulable conditions) or an older generation mechanical AVR (i.e., ball in-Cage) or any mechanical MVR should have a INR therapeutic range of 2.5 to 3.5 (target INR of 3). Celso GH, et al. Chest 2012, 141:7S-47S Luda RA, et al. [facility] 2017, 70: 252-289 Performed By: #### PT, PTT #### [facility] [employer] [address] [place], [place] [address] APTT Collected: 08/30/2018 Status: F Source: [facility] 2:49 PM [facility] REPOSITORY TYPE CODE TESTS RESULT OUT OF RANGE REFERENCE UNITS LAB APTT 23.0-32.4 sec APTT 25.1 Result Comment: Unfractionated Heparin Therapeutic Ranges: Standard Heparin Nomogram: 53 to 78 seconds (anti-Xa level of 0.3 to 0.7 U/ml) Low Dose/ACS Nomogram: 49 to 67 seconds (anti-Xa level of 0.2 to 0.5 U/ml) Stroke Treatment Nomogram: 49 to 67 seconds (anti-Xa level of 0.2 to 0.5 U/ml) Note: The APTT therapeutic range has been determined for the current lot of laboratory APTT reagent in use throughout the [facility]. Performed By: #### PT, PTT #### [place] [address] TYPE AND SCREEN Collected: 08/30/2018 Status: F Source: [facility] 2:49 PM [facility] REPOSITORY TYPE CODE TESTS RESULT OUT OF REFERENCE UNITS RANGE LAB %ABR O ABO/RH(D) POSITIVE LAB % Antibody NEG Screen Performed By: #### TSCR #### [place] [address] C-REACTIVE PROTEIN Collected: 08/30/2018 Status: F Source: [facility] 2:48 PM [facility] REPOSITORY TYPE CODE TESTS RESULT OUT OF REFERENCE UNITS RANGE LAB CRP <0.9 mg/dL C-Reactive 0.4 Protein Performed By: #### CRP, WSR #### [place] [address] SED RATE WESTERGREN Collected: 08/30/2018 Status: F Source: [facility] 2:48 PM [facility] REPOSITORY TYPE CODE TESTS RESULT OUT OF REFERENCE UNITS RANGE LAB WSR 0-20 mm/hr Sed Rate High Westergren 87 Performed By: #### CRP, WSR #### [place] [id number] [place] [address] CBC AND DIFFERENTIAL Collected: 08/30/2018 Status: F Source: [facility] 2:47 PM [facility] REPOSITORY TYPE CODE TESTS RESULT OUT OF REFERENCE UNITS RANGE LAB WBC 3.70-11.00 k/uL WBC 8.48 LAB RBC 3.90-5.20 m/uL Low RBC 3.86 LAB HGB 11.5-15.5 g/dL Low Hemoglobin 10.9 LAB HCT 36.0-46.0 % Low Hematocrit 34.6 LAB MCV 80.0-100.0 fL MCV 89.6 LAB MCH 26.0-34.0 pG MCH 28.2 LAB MCHC 30.5-36.0 g/dL MCHC 31.5 LAB RDWCV 11.5-15.0 % RDW-CV 13.0 LAB PLTCT 150-400 k/uL Platelet Count 369 LAB MPV 9.0-12.7 fL MPV 10.2 LAB ANEUT % Neut% 72.5 LAB AANEUT 1.45-7.50 k/uL Abs Neut 6.15 LAB ALYMP % Lymph% 17.8 LAB AALYMP 1.00-4.00 k/uL Abs Lymph 1.51 LAB AMONO % [place]% 7.0 LAB AAMONO <0.87 k/uL Abs [place] 0.59 LAB AEOS % Eosin% 2.2 LAB AAEOS <0.46 k/uL Abs Eosin 0.19 LAB ABASO % Baso% 0.5 LAB AABASO <0.11 k/uL Abs Baso 0.04 LAB AUNRBC 0 /100 WBC NRBCs 0.0 LAB ABNRBC <0.01 k/uL Absolute nRBC <0.01 LAB DTYP DTYPE Auto Diff Performed By: #### CBCDIF, CMP #### [facility] [address] [place], [place] [address] COMP METABOLIC PANEL Collected: 08/30/2018 Status: F Source: [facility] 2:47 PM [facility] REPOSITORY TYPE CODE TESTS RESULT OUT OF REFERENCE UNITS RANGE LAB TP 6.3-8.0 g/dL Protein, Total 7.2 LAB ALB 3.9-4.9 g/dL Albumin 3.9 LAB CA 8.5-10.2 mg/dL Calcium, Total 9.6 LAB TBIL 0.2-1.3 mg/dL Bilirubin, Total 0.2 LAB ALKP 34-123 U/L Alkaline Phosphatase 90 LAB AST 13-35 U/L AST High 83 LAB GLU 74-99 mg/dL Glucose High 219 Result Comment: The [place] Diabetes Association (ADA) provides guidance for cutoff values for fasting glucose and random glucose. The ADA defines fasting as no caloric intake for at least 8 hours. Fas ting plasma glucose results between 100 to 125 mg/dL indicate increased risk for diabetes (prediabetes). Fasting plasma glucose results greater than or equal to 126 mg/dL meet the criteria for diagnosis of diabetes. In the absence of unequivocal hyperglycemia, results should be confirmed by repeat testing. In a patient with classic symptoms of hyperglycemia or hyperglycemic crisis, random plasma glucose results greater than or equal to 200 mg/dL meet the criteria for diagnosis of diabetes. Reference: Standards of Medical Care in Diabetes 2016, [place] Diabetes Association. Diabetes Care. 2016.39(Suppl 1). LAB BUN 7-21 mg/dL BUN 20 LAB CRET 0.58-0.96 mg/dL Creatinine 0.83 LAB NA 136-144 mmol/L Sodium 137 LAB K 3.7-5.1 mmol/L Potassium 4.6 LAB CL 97-105 mmol/L Low Chloride 96 LAB CO2 22-30 mmol/L CO2 27 LAB AGAP 9-18 mmol/L Anion Gap 14 LAB ALT 7-38 U/L ALT High 77 LAB GFRAA eGFR- Amer. >60 LAB GFRNAA . eGFR-All Other Races >60 Result Comment: eGFR (Estimated GFR) Units of measure: mL/min/1.73 meters squared eGFR is derived from the reexpressed MDRD Study equation using the following parameters: serum creatinine, age, gender and race. The creatinine assay has been calibrated to be traceable to IDMS. An eGFR <60 mL/min/1.73m2 for >3 months is consistent with chronic kidney disease. Refer to KDOQI guidelines for clinical interpretation. In patients with unstable renal function, e.g. those with acute kidney injury, the eGFR may not accurately reflect actual GFR. Performed By: #### CBCDIF, CMP #### [facility] [employer] [place], [place] [address] Observed: 08/30/2018 Status: F Source: [place] BLOOD CULTURE 2:45 PM [facility] REPOSITORY Culture Result - No growth 5 days Performed By: #### BLCUL #### [facility] [employer] [place] [id number] NURSING PROG Observed: 08/30/2018 Status: COMPLETED Source: [place] 2:08 PM [facility] REPOSITORY HNO ID: [id number] Author: Honey (Rn) KELSIE Torres Service: (none) Author Type: Registered Nurse Type: Nursing Progress Note Filed: 08/30/2018 2:08 PM Note Text: Nursing Progress Note Patient Name: Diony Carrillo Patient Location: [place] [address] pt admit to floor in stable condition, md has been paged This note was completed by: Honey Torres RN BEDSIDE GLUCOSE Collected: 08/30/2018 Status: F Source: [place] 10:[address] [facility] REPOSITORY TYPE CODE TESTS RESULT OUT OF REFERENCE UNITS RANGE LAB L501.080 70-110 mg/dL High BEDSIDE GLU 314 Result Comment: MANAGEMENT OF PATIENT CARE PER NURSING PROTOCOL Performed By: #### L501.080 #### [facility] Laboratory Point of Care [address] [place] [address] BEDSIDE GLUCOSE Collected: 08/30/2018 Status: F Source: [place] 6:[address] [facility] REPOSITORY TYPE CODE TESTS RESULT OUT OF REFERENCE UNITS RANGE LAB L501.080 70-110 mg/dL High BEDSIDE GLU 207 Result Comment: MANAGEMENT OF PATIENT CARE PER NURSING PROTOCOL Performed By: #### L501.080 #### [facility] Laboratory Point of Care [address] [place] [address] BEDSIDE GLUCOSE Collected: 08/29/2018 Status: F Source: [place] 9:[address] [facility] REPOSITORY TYPE CODE TESTS RESULT OUT OF REFERENCE UNITS RANGE LAB L501.080 70-110 mg/dL High BEDSIDE GLU 214 Result Comment: MANAGEMENT OF PATIENT CARE PER NURSING PROTOCOL Performed By: #### L501.080 #### [facility] Point [facility] [address] [place] [address] DISCHARGE SUMMARY Observed: 08/29/2018 Status: F Source: [place] 9:[address] [facility] REPOSITORY [facility] Medical Records Department [address] [place] [address] Discharge Summary 08/29/18 2104 MR#: [id number] Acct: [id number] Name: DIONY CARRILLO Rep #: [id number] : 1965 53 From: Chauncey Hassan MD PCP: Jeaneth DELVALLE,Alessandro Status: ADM IN Y Location: [place] [address] Discharge Date and Diagnosis Date of Admission: 08/25/18 Date of Discharge: 08/29/18 - Secondary Discharge Diagnosis Chronic Problems HLD (hyperlipidemia) (Chronic) Neuropathic pain (Chronic) GERD (gastroesophageal reflux disease) (Chronic) Hypomagnesemia (Chronic) Back pain, chronic (Chronic) Hyponatremia (Chronic) Depression (Chronic) RLS (restless legs syndrome) (Chronic) Type II diabetes mellitus, uncontrolled (Chronic) Anxiety state (Chronic) Hospital Course and Treatment Imaging Results: 08/25/18 16:04 Diet: Calorie Controlled Type of Dietary Supplement:: Glucerna Shake How many daily calories?: 1800 calorie Clinical Impression(s) from Imaging Studies Ankle X-Ray 08/26/18 08:10 IMPRESSION: Medial and lateral malleolus degenerative change and midfoot degenerative changes as above. No evidence of definitive acute fracture. Electronically Signed: Kyle Warren DO at 8:38 EST , Service support , Foot X-Ray 08/26/18 08:12 IMPRESSION: Status post amputation changes through the proximal shaft of the fifth metatarsal. Electronically Signed: Juanjo Antunez MD at 9:01 EST , Service support , KUB X-Ray 08/27/18 09:38 IMPRESSION: Limited study.. Moderate constipation. Electronically Signed: Milli Haq MD at 10:00 EST Tel , Service support , Labs (Last 48 Hours) POC Glucose 106 188 H 140 H POC Glucose 241 H 262 H 107 POC Glucose 301 H 165 H Consultations 08/25/18 Consult: Onc/Wound/cook chili Routine Comment: Operations: None, - - Incision and drainage of left foot with bone biopsy of the fifth metatarsal Procedures: None Summary of Care Provided: The patient is a 53 year old Female with below past medical history significant for uncontrolled Diabetes Mellitus II, hospitalized for infected left diabetic foot ulcer, underwent debridement 08/23/[address] Allen, admitted to TCU with debility, here for rehabilitation, strengthening, wound care, prior to discharge home. 08/29/2018 MRI right foot shows right foot plantar abscess, Dr. Allen recommended transfer to [facility], as he will be out of town. Discharge to [facility] for further care. - Physical Exam Vital Signs Temp Pulse Resp BP Pulse Ox 98.2 F 90 18 110/59 L 95 08/29/18 15:49 08/29/18 15:49 08/29/18 15:49 08/29/18 15:49 08/29/18 15:49 Oxygen Delivery Method Room Air Weight: 86.381 kg Body Mass Index (BMI) 31.5 Intake and Output for Last 24 Hours Intake Total 600 / 600 560 / 560 900 / 900 Balance 600 / 600 560 / 560 900 / 900 POC Glucose POC Glucose 165 H 301 H 107 POC Glucose 262 H Discharge Diet: No Restrictions Discharge Activity: Use Walker Weight Bearing Status: Partial weight bearing - Right heel, left foot NWB. Call your doctor if you observe: Fever of 101 or Higher, Inability to urinate, Inability to have a bowel movement, Shortness of breath, Chest pain, Uncontrolled pain Home Medications: Medications to take at Discharge Insulin Aspart [Novolog Flexpen] 15 units SC TIDCM 01/27/15 Ascorbic Acid 500 mg PO BID 08/22/18 Ergocalciferol [Vitamin D] 50,000 unit PO GRAY 08/22/18 Gabapentin [Neurontin] 800 mg PO TID 08/22/18 Omeprazole [Prilosec] 20 mg PO DAILY 08/22/18 Rosuvastatin Calcium [Crestor] 40 mg PO DAILY 08/22/18 Bisacodyl [Dulcolax] 5 mg PO DAILY PRN PRN tablet 08/25/18 Cephalexin [Keflex] 500 mg PO Q8 08/25/18 Insulin Glargine [Lantus SoloStar Pen] 30 units SC BID 08/25/18 Acetaminophen [Tylenol] 1,000 mg PO Q6H PRN tablet 08/29/18 Enoxaparin [Lovenox] 40 mg SC DAILY@0600 syringe 08/29/18 Escitalopram Oxalate [Lexapro] 10 mg PO DAILY tablet 08/29/18 Glucerna Shake 120 ml PO 4X/DAY liquid 08/29/18 Iron Polysaccharide Complex [Ferrex 150] 150 mg PO DAILYCM capsule 08/29/18 Nutritional Supplement [Ted - ORANGE FLAVOR] 1 packet PO BIDCM packet 08/29/18 Ondansetron [Zofran Odt] 4 mg PO Q6H PRN PRN tablet 08/29/18 Polyethylene Glycol 3350 [Miralax] 17 gm PO DAILY packet 08/29/18 Ropinirole HCl [Requip] 3 mg PO 1000,2200 tablet 08/29/18 Senna/Docusate Sodium [Senokot-S] 1 tablet PO BID tablet 08/29/18 hydrOXYzine pamoate capsule [Vistaril pamoate capsule] 25 mg PO Q6H PRN PRN capsule 08/29/18 proMETHazine tablet [Phenergan tablet] 25 mg PO Q6H PRN PRN tablet 08/29/18 Primary Care Physician: Alessandro Eric MD [Primary Care Provider] - Please follow up with your Primary Care Physician in: 1 week. Please Follow Up With: [facility] When: 2 weeks. Disposition: Acute care Hospital Minutes spent on discharge:: 30 Patient Condition:: Guarded Medical Necessity - Tobacco Use Smoking Status: Never smoker Tobacco Use: Non-smoker Meaningful Use Info Meaningful Use Diagnoses (Choose all that apply): None applicable 08/29/182105 <Electronically signed by Chauncey Hassan MD> Date Chauncey Hassan MD Cosigner Signature (if applicable): Date CC: Alessandro Eric MD; Chauncey Hassan MD Signed DISCHARGE INSTRUCTION Observed: 08/29/2018 Status: F Source: [place] 9:[address] [facility] REPOSITORY [facility] Medical Records Department [address] [place] [address] Instructions for Home/Discharge Instructions 08/29/182100 MR#: [id number] Acct: [id number] Name: DIONY CARRILLO Rep #: [id number] : 1965 53 From: Chauncey Hassan MD PCP: Alessandro Eric MD Status: ADM IN - Discharge Diagnoses Current Active Problems: Current Active and Chronic Problems Neuropathic pain (Chronic) GERD (gastroesophageal reflux disease) (Chronic) Hypomagnesemia (Chronic) You will use the following diet at home:: No restrictions, Regular Your food should be the consistency of: Regular Your liquids should be the consistency of: Regular/Thin Discharge Activity: Use Walker Weight Bearing Status: Partial weight bearing - Right heel, left foot NWB. Call your doctor if you observe: Fever of 101 or Higher, Inability to urinate, Inability to have a bowel movement, Shortness of breath, Chest pain, Uncontrolled pain Allergies/Adverse Reactions: Allergies oxycodone [Oxycodone] Allergy (Verified 08/17/18 14:04) Rash oxycodone HCl [From OxyContin] Allergy (Verified 08/17/18 14:04) Rash Penicillins Allergy (Verified 08/17/18 14:04) Shortness of breath Medications to take at Discharge Insulin Aspart [Novolog Flexpen] 15 units SC TIDCM 01/27/15 Ascorbic Acid 500 mg PO BID 08/22/18 Ergocalciferol [Vitamin D] 50,000 unit PO GRAY 08/22/18 Gabapentin [Neurontin] 800 mg PO TID 08/22/18 Omeprazole [Prilosec] 20 mg PO DAILY 08/22/18 Rosuvastatin Calcium [Crestor] 40 mg PO DAILY 08/22/18 Bisacodyl [Dulcolax] 5 mg PO DAILY PRN PRN tablet 08/25/18 Cephalexin [Keflex] 500 mg PO Q8 08/25/18 Insulin Glargine [Lantus SoloStar Pen] 30 units SC BID 08/25/18 Acetaminophen [Tylenol] 1,000 mg PO Q6H PRN tablet 08/29/18 Enoxaparin [Lovenox] 40 mg SC DAILY@0600 syringe 08/29/18 Escitalopram Oxalate [Lexapro] 10 mg PO DAILY tablet 08/29/18 Glucerna Shake 120 ml PO 4X/DAY liquid 08/29/18 Iron Polysaccharide Complex [Ferrex 150] 150 mg PO DAILYCM capsule 08/29/18 Nutritional Supplement [Ted - ORANGE FLAVOR] 1 packet PO BIDCM packet 08/29/18 Ondansetron [Zofran Odt] 4 mg PO Q6H PRN PRN tablet 08/29/18 Polyethylene Glycol 3350 [Miralax] 17 gm PO DAILY packet 08/29/18 Ropinirole HCl [Requip] 3 mg PO 1000,2200 tablet 08/29/18 Senna/Docusate Sodium [Senokot-S] 1 tablet PO BID tablet 08/29/18 hydrOXYzine pamoate capsule [Vistaril pamoate capsule] 25 mg PO Q6H PRN PRN capsule 08/29/18 proMETHazine tablet [Phenergan tablet] 25 mg PO Q6H PRN PRN tablet 08/29/18 Primary Care Physician: Alessandro Eric MD [Primary Care Provider] - Please follow up with your Primary Care Physician in: 1 week. Test Results: Test results from this visit will be discussed in further detail at your follow-up appointment, if applicable. Please Follow Up With: [facility] When: 2 weeks. Proposed Discharge Date: 08/29/18 08/29/182103 <Electronically signed by Chauncey Hassan MD> Date Chauncey Hassan MD CC: Alessandro Eric MD BEDSIDE GLUCOSE Collected: 08/29/2018 Status: F Source: [place] 4:[address] [facility] REPOSITORY TYPE CODE TESTS RESULT OUT OF REFERENCE UNITS RANGE LAB L501.080 70-110 mg/dL High BEDSIDE GLU 165 Result Comment: MANAGEMENT OF PATIENT CARE PER NURSING PROTOCOL Performed By: #### L501.080 #### [facility] Laboratory Point of Care [address] [place] [address] BEDSIDE GLUCOSE Collected: 08/29/2018 Status: F Source: [place] 11:[address] [facility] REPOSITORY TYPE CODE TESTS RESULT OUT OF REFERENCE UNITS RANGE LAB L501.080 70-110 mg/dL High BEDSIDE GLU 301 Result Comment: MANAGEMENT OF PATIENT CARE PER NURSING PROTOCOL Performed By: #### L501.080 #### [facility] Point of Care [address] [place] [address] LOWER EXT NO JOINT Observed: 08/29/2018 Status: F Source: [place] W/WO CONT 8:[address] [facility] REPOSITORY [facility] Imaging Services [address] [place] [address] Lower Ext No Joint W/WO Cont MR#: [id number] Acct: [id number] Name: DIONY CARRILLO Rep #: [id number] : 1965 F 53 From: Saqib Roberts MD PCP: Alessandro Eric MD Status: REG CLI Study: Lower Ext No Joint W/WO Cont Date of Exam: 08/29/18 Exam# [id number] Ordering Dr: Sendy Allen DPM STUDY: MRI RIGHT FOOT WITH AND WITHOUT CONTRAST REASON FOR EXAM: Concern for infection at the second and third metatarsals. TECHNIQUE: Standardized fat and water weighted pulse sequences were obtained in all 3 orthogonal planes before and after intravenous administration of 8 mL of Gadavist. COMPARISON: Radiographs 08/26/2018 and MRI images 01/14/2014. FINDINGS: Normal talonavicular articulation. Normal calcaneocuboid articulation. There is chondral thinning of the navicular-cuneiform articulations and second through fifth tarsometatarsal joints (T2 series 8 images 8-18) with bone edema and cystic changes particularly at the second and third tarsometatarsal joints (inversion recovery sagittal images 8-20) with mild contrast enhancement of the tarsal bones of the midfoot and second through fifth proximal metatarsals (postcontrast T1 sagittal images 9-20). 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 Normal first tarsometatarsal joint. Normal Lisfranc ligament. There is amputation of the fifth digit at the level of the proximal metatarsal. Normal tibialis anterior tendon. Normal extensor hallucis longus tendon. Normal extensor digitorum longus tendons. Normal peroneus longus tendon and distal insertion. Normal peroneus brevis tendon and distal insertion. There is atrophy with partial fat replacement of the intrinsic muscles of the foot (T1 sagittal images 8-19) suggestive of peripheral neuropathy. There is a small fluid collection in the subcutis adipose space plantar to the amputated fifth metatarsal (T2 series 8 images 14, 15; inversion recovery sagittal images 17, 18) measuring 1.0 x 0.9 cm (transverse x length) with mild contrast enhancement of the wall (postcontrast T1 sagittal images 17, 18) suggestive of a small soft tissue abscess. There is a lobulated ganglion cyst dorsal to the medial navicular-cuneiform articulation (inversion recovery sagittal image 9) measuring approximately 1.7 cm in length. MRI/Lower Ext No Joint W/WO Cont IMPRESSION: Neuropathic osteoarthropathy with subchondral cystic change at the second and third tarsometatarsal joints without demonstrated osteomyelitis. Small soft tissue abscess plantar to the amputated fifth metatarsal. Atrophy of the intrinsic muscles of the foot suggestive of peripheral neuropathy. Ganglion cyst dorsal to the medial navicular-cuneiform articulation. Electronically Signed: Saqib Roberts MD at 12:28 EST Tel , Service support , CC: BRITTANIE Allen; Alessandro Eric MD Mobile Lounge Driver Or Operator: Signed BEDSIDE GLUCOSE Collected: 08/29/2018 Status: F Source: [place] 6:[address] [facility] REPOSITORY TYPE CODE TESTS RESULT OUT OF RANGE REFERENCE UNITS LAB L501.080 70-110 mg/dL Normal BEDSIDE GLU 107 Result Comment: MANAGEMENT OF PATIENT CARE PER NURSING PROTOCOL Performed By: #### L501.080 #### [facility] Point of Care [address] [place] [address] MR OUTSIDE CD DICOM Observed: 08/29/2018 Status: F Source: [place] IMPORT -NBNR 12:00 AM [facility] REPOSITORY Images were obtained outside of [facility] [id number] MR OUTSIDE CD DICOM Observed: 08/29/2018 Status: F Source: [place] IMPORT -NBNR 12:00 AM [facility] REPOSITORY Images were obtained outside of [facility] [id number] MR OUTSIDE CD DICOM Observed: 08/29/2018 Status: F Source: [place] IMPORT -NBNR 12:00 AM [facility] REPOSITORY * * *Final Report* * * DATE OF EXAM: Aug 29 2018 12:00AM OUT 0001 - MR OUTSIDE CD DICOM IMPORT -NBNR / PROCEDURE REASON: Previous report is inadequate. * * * * Physician Interpretation * * * * EXAMINATION: OUTSIDE IMAGE INTERPRETATION Indication for the Request / Reason for Overread: Previous report is inadequate. Specific Issue(s) Discussed: concern for abscess Images Reviewed: MRI of the right foot performed on 08/29/2018 12:00 AM . Image Quality: technically adequate images Overread Date: 09/04/2018 8:40 AM MQ: Over_2 Comparison: August 18 radiographs and June 13 ankle MRI. Earlier MRI 01/03/2015, radiographs 01/02/2015, and radiographs 06/19/2014 also reviewed. RESULT: MRI of the right foot was performed with images obtained before and after the intravenous administration of contrast (unspecified type and dose). Examination includes sagittal T1 and STIR, short axis TI and T2, and long axis TII. Post contrast (unspecified) fat-suppressed T1 sagittal and short axis are also submitted. Some short axis images were unable to be visualized for technical reasons. No ulceration is identified. Thickening of the skin of the plantar midfoot laterally, plantar to the residual fifth metatarsal in this patient who has had transmetatarsal amputation of the fifth ray. There is smooth cortication of the resection margin . There is underlying area of signal abnormality which on T1-weighted images extends over 3.2 cm longitudinally but is associated with a smaller area of rim enhancing fluid spanning 1.9 cm longitudinally by 0.4 x 0.7 cm in short axis. There is a small round area of enhancement measuring 0.3 cm in diameter associated with heterotopic ossification along the resection margin medially (4:19, 10:19). This is more conspicuous or new when compared to the previous examination and is concerning for a small focus of osteomyelitis. Otherwise, marrow intensity is preserved in the residual fifth ray. Extensive signal abnormalities are present throughout the remainder of the mid foot at the first through fourth tarsometatarsal joints. This includes joint effusion, synovitis, areas of subchondral edema and cystlike change, and some bony fragmentation especially at the second. Findings are similar to the previous examinations and are most consistent with neuropathic change. Joint effusions otherwise are not identified. Tendons are intact. There are typical neuropathic muscle changes of fatty replacement and atrophy. IMPRESSION: STATUS POST RIGHT FIFTH TRANSMETATARSAL AMPUTATION. SMALL FOCUS OF OSTEOMYELITIS AND ADJACENT HETEROTOPIC OSSIFICATION AT THE RESECTION MARGIN WITH SMALL PLANTAR SUBCUTANEOUS ABSCESS. ADVANCED MID FOOT NEUROPATHIC CHANGES OF THE TARSOMETATARSAL JOINTS. IMPRESSION: Mobile Lounge Driver Or Operator: PSCB Transcribe Date/Time: Sep 04 2018 8:40A Dictated by : FELICE MI MD This examination was interpreted and the report reviewed and electronically signed by: FELICE MI MD on Sep 04 2018 9:03AM EST BEDSIDE GLUCOSE Collected: 08/28/2018 Status: F Source: [place] 9:[address] [facility] REPOSITORY TYPE CODE TESTS RESULT OUT OF REFERENCE UNITS RANGE LAB L501.080 70-110 mg/dL High BEDSIDE GLU 262 Result Comment: MANAGEMENT OF PATIENT CARE PER NURSING PROTOCOL Performed By: #### L501.080 #### [facility] Laboratory Point of Care [address] [place], [place] [address] BEDSIDE GLUCOSE Collected: 08/28/2018 Status: F Source: [place] 4:[address] [facility] REPOSITORY TYPE CODE TESTS RESULT OUT OF REFERENCE UNITS RANGE LAB L501.080 70-110 mg/dL High BEDSIDE GLU 241 Result Comment: Dr Ponce Followed MANAGEMENT OF PATIENT CARE PER NURSING PROTOCOL Performed By: #### L501.080 #### [facility] Laboratory Point of Care [address] [place] [address] PROGRESS Observed: 08/28/2018 Status: COMPLETED Source: [place] 1:01 PM [facility] REPOSITORY HNO ID: [id number] Author: Justin Grant) Lalo Service: (none) Author Type: Nurse Practitioner Type: Progress Notes Filed: 08/28/2018 1:01 PM Note Text: Noted. Justin Philippe APRN.CNP PROGRESS Observed: 08/28/2018 Status: COMPLETED Source: [place] 12:34 PM [facility] REPOSITORY HNO ID: [id number] Author: Kaylyn Harrison Ma Service: (none) Author Type: (none) Type: Progress Notes Filed: 08/28/2018 1:01 PM Note Text: TRANSITION CARE MANAGEMENT (TCM) INITIAL CONTACT Septic Tank Service Technician Outreach Provider Action/FYI: - Pt currently in [facility] TCU and on a Wound-Vac. Has Wound Nurse changing dressings up to TID per week. Dr. Allen coming in once per week to check on patient. Pt is partial weightbearing to right heel, silvercel and peg assisted offloading boot. Pt unsure if will be able to get transportation, but should from [facility]. - Pt states that she may be in the TCU anywhere from 30-90 days. She is needing to f/u due to DM being uncontrolled and needing DM shoes and medications. A1c while at [facility] was 12% and insulin therapy was adjusted while in, poorly controlled. - This pt has not been seen in our office for an extended time. Update list from discharge at the hospital, to the best we can until pt comes in with TCU list. - Infection Disease has been consulted, but at this present time no one has been in to see this patient per Alli (Nurse). Dr. Tello is ID consult at [facility]. - Pt has had cultures, multiple imaging and labs done while at [facility]. She follows with Dr. Allen at [facility] for Podiatry. Initial contact with patient post discharge, spoke to patient on August 28, 2018 and Nurse Alli at TCU. Patient identified by name and . TRANSITION CARE MANAGEMENT INITIAL OUTREACH DOCUMENTATION: No flowsheet data found. SUMMARY: -Pt discharged from [facility] on 08/25/18. -Admitted for: Cellulitis on 08/22/18 Do you have a hospital follow up appointment with your PCP? Appointment on 09/06/18 with 1:00 pm. No. Assist patient with follow-up appointment within 1-14 calendar days from discharge date. If patient prefers not to schedule follow-up appointment at this time, notify PCP. This appt was made with Tea. MEDICATIONS: Many patients have questions or concerns about their medications once they are home. Were you prescribed any new medications? If yes, what are those medications? Lantus 30 units bid SC (from Levemir 30 units bid), Metamucil 1 packet daily, Bactrim DS 1 tab po bid #16 tabs, Milk of Magnesia 30 ml daily prn, Flaygyl 500 mg TID #32 tabs, Keflex 500 mg po q8hrs, Tylenol 650 mg po q hrs prn, Santyl topical daily. Switched to Oxydodone 5 mg prn, Phenergan PRN. Were you told to hold any medications? [place] has been replaced with Oxycodone per Nurse Alli at [facility]. Were any of your medications discontinued? If yes, what are those medications? Tylenol with Codeine has been changed to Tylenol no Codeine. Unsure with D/c if any other meds have been d/c. Do you have any questions about getting or taking your medications? No Your discharge instructions/After visit Summary (AVS) are important in guiding you through the recovery process. Is there anything I might help you understand? No Do you have all the necessary equipment and supplies at home? Yes Medical records from recent hospitalization: [facility] BEDSIDE GLUCOSE Collected: 08/28/2018 Status: F Source: [place] 10:[address] [facility] REPOSITORY TYPE CODE TESTS RESULT OUT OF REFERENCE UNITS RANGE LAB L501.080 70-110 mg/dL High BEDSIDE GLU 140 Result Comment: MANAGEMENT OF PATIENT CARE PER NURSING PROTOCOL Performed By: #### L501.080 #### [facility] Laboratory Point of Care [address] [place] [address] BEDSIDE GLUCOSE Collected: 08/28/2018 Status: F Source: [place] 6:[address] [facility] REPOSITORY TYPE CODE TESTS RESULT OUT OF REFERENCE UNITS RANGE LAB L501.080 70-110 mg/dL High BEDSIDE GLU 188 Result Comment: MANAGEMENT OF PATIENT CARE PER NURSING PROTOCOL Performed By: #### L501.080 #### [facility] Laboratory Point of Care [address] [place] [address] CNPTOUTREACH Observed: 08/28/2018 Status: COMPLETED Source: [place] 12:00 AM [facility] REPOSITORY Patient Outreach (FAMPWS) DIONY CARRILLO ([id number]) 1965 F Date Time Provider Department 08/28/18 [facility] During your visit today, we recorded the following information about you: Kaylyn Harrison Ma 08/28/2018 1:01 PM Signed TRANSITION CARE MANAGEMENT (TCM) INITIAL CONTACT [employer] Service Technician Outreach Provider Action/FYI: - Pt currently in [facility] TCU and on a Wound-Vac. Has Wound Nurse changing dressings up to TID per week. Dr. Allen coming in once per week to check on patient. Pt is partial weightbearing to right heel, silvercel and peg assisted offloading boot. Pt unsure if will be able to get transportation, but should from [facility]. - Pt states that she may be in the TCU anywhere from 30-90 days. She is needing to f/u due to DM being uncontrolled and needing DM shoes and medications. A1c while at [facility] was 12% and insulin therapy was adjusted while in, poorly controlled. - This pt has not been seen in our office for an extended time. Update list from discharge at the hospital, to the best we can until pt comes in with TCU list. - Infection Disease has been consulted, but at this present time no one has been in to see this patient per Alli (Nurse). Dr. Tello is ID consult at [facility]. - Pt has had cultures, multiple imaging and labs done while at [facility]. She follows with Dr. Allen at [facility] for Podiatry. Initial contact with patient post discharge, spoke to patient on August 28, 2018 and Nurse Alli at TCU. Patient identified by name and . TRANSITION CARE MANAGEMENT INITIAL OUTREACH DOCUMENTATION: No flowsheet data found. SUMMARY: -Pt discharged from [facility] on 08/25/18. -Admitted for: Cellulitis on 08/22/18 Do you have a hospital follow up appointment with your PCP? Appointment on 09/06/18 with 1:00 pm. No. Assist patient with follow-up appointment within 1-14 calendar days from discharge date. If patient prefers not to schedule follow- up appointment at this time, notify PCP. This appt was made with Alli chauhan Nurse. MEDICATIONS: Many patients have questions or concerns about their medications once they are home. Were you prescribed any new medications? If yes, what are those medications? Lantus 30 units bid SC (from Levemir 30 units bid), Metamucil 1 packet daily, Bactrim DS 1 tab po bid #16 tabs, Milk of Magnesia 30 ml daily prn, Flaygyl 500 mg TID #32 tabs, Keflex 500 mg po q8hrs, Tylenol 650 mg po q hrs prn, Santyl topical daily. Switched to Oxydodone 5 mg prn, Phenergan PRN. Were you told to hold any medications? [place] has been replaced with Oxycodone per Nurse Alli at [facility]. Were any of your medications discontinued? If yes, what are those medications? Tylenol with Codeine has been changed to Tylenol no Codeine. Unsure with D/c if any other meds have been d/c. Do you have any questions about getting or taking your medications? No Your discharge instructions/After visit Summary (AVS) are important in guiding you through the recovery process. Is there anything I might help you understand? No Do you have all the necessary equipment and supplies at home? Yes Medical records from recent hospitalization: [facility] Justin Philippe APRN.CNP 08/28/2018 1:01 PM Signed Noted. Justin Philippe APRN.CNP Allergies As of Date: 08/28/2018 Noted Allergy Reaction OXYCONTIN (OXYCODONE HCL) 09/27/2007 Comments: itch PENICILLINS 06/02/2007 4 - Hives REQUIP (ROPINIROLE) 11/18/2015 5 - Intolerance Comments: Vomiting, panic attacks, itching Date Reviewed: 08/22/2018 Reviewed by: Cecy Carbajal RN - Fully Assessed Reason for Visit: Hospital Follow Up [177] Cmt: TCM Prescriptions as of 08/28/2018 Sig: GABAPENTIN 800 MG TABLET Take 1 tablet by mouth three * INSULIN ASPART U-100 100 UNI* Inject 15 Units subcutaneousl* INSULIN DETEMIR (U-100) 100 U* Inject 30 Units subcutaneousl* BLOOD-GLUCOSE METER 1 Units as directed. Dx: E11.* ROPINIROLE 3 MG TABLET Take 1 tablet by mouth twice * MAGNESIUM OXIDE 400 MG (241.3* Take 1 tablet by mouth twice * OMEPRAZOLE 20 MG CAPSULE,JR* Take 1 capsule by mouth daily* ROSUVASTATIN 40 MG TABLET Take 1 tablet by mouth once d* PEN NEEDLE, DIABETIC 31 GAUGE* Use as directed four times da* ERGOCALCIFEROL (VITAMIN D2) 5* Take 1 capsule by mouth once * ALPHA LIPOIC ACID 600 MG CAPS* Take 600 mg by mouth once arnold* ASCORBIC ACID (VITAMIN C) 500* Take 1 tablet by mouth twice * BLOOD SUGAR DIAGNOSTIC STRIPS Test blood sugar(s) 3- 4 times* BLOOD SUGAR DIAGNOSTIC STRIPS Check blood sugar readings 2-* LANCETS Check blood sugar readings 2-* BLOOD-GLUCOSE METER KIT 1 Each as needed. LANCETS Test 2-3 times a day INSULIN GLARGINE (U-100) 100 * Inject 30 Units subcutaneousl* OXYCODONE 5 MG TABLET Take 1 tablet by mouth every * PSYLLIUM ORAL PACKET Take 1 Packet by mouth once d* PROMETHAZINE 25 MG TABLET Take 1 tablet by mouth every * DOXYCYCLINE MONOHYDRATE 100 M* Take 1 capsule by mouth twice* ACETAMINOPHEN 300 MG-CODEINE * Problem List As Of Date 08/28/2018 Noted Resolved Reaction, adjustment, with depressed mood, prol*INVALID FOR* More... Diabetic polyneuropathy associated with type 2 *INVALID FOR* More... 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 Osteomyelitis (HCC) [M86.9] INVALID FOR* Priority: A More... Clostridium difficile infection [B96.89] INVALID FOR* Priority: C More... Urinary hesitancy [R39.11] INVALID FOR*05/30/2015 Priority: D More... SUMMARY INVALID FOR* Priority: Very Severe More... Urinary hesitancy [R39.11] INVALID FOR*06/04/2015 More... RLS (restless legs syndrome) [G25.81] INVALID FOR* More... Anxiety neurosis [F41.1] INVALID FOR* More... Positive urine drug screen [R82.5] INVALID FOR* More... Charcot foot due to diabetes mellitus (HCC) [E1*INVALID FOR* Encounter Status:Closed by JUSTIN PHILIPPE CNP on 08/28/18 BEDSIDE GLUCOSE Collected: 08/27/2018 Status: F Source: [place] 9:[address] [facility] REPOSITORY TYPE CODE TESTS RESULT OUT OF RANGE REFERENCE UNITS LAB L501.080 70-110 mg/dL Normal BEDSIDE GLU 106 Result Comment: MANAGEMENT OF PATIENT CARE PER NURSING PROTOCOL Performed By: #### L501.080 #### [facility] Point of Care [address] [place], [place] [id number] BEDSIDE GLUCOSE Collected: 08/27/2018 Status: F Source: [place] 6:[address] [facility] REPOSITORY TYPE CODE TESTS RESULT OUT OF REFERENCE UNITS RANGE LAB L501.080 70-110 mg/dL High BEDSIDE GLU 205 Result Comment: MANAGEMENT OF PATIENT CARE PER NURSING PROTOCOL Performed By: #### L501.080 #### [facility] Point of Care [address] [place] [address] BEDSIDE GLUCOSE Collected: 08/27/2018 Status: F Source: [place] 4:[address] [facility] REPOSITORY TYPE CODE TESTS RESULT OUT OF REFERENCE UNITS RANGE LAB L501.080 70-110 mg/dL High BEDSIDE GLU 244 Result Comment: Dr Orders Followed MANAGEMENT OF PATIENT CARE PER NURSING PROTOCOL Performed By: #### L501.080 #### [facility] Point of Care [address] [place] [address] BEDSIDE GLUCOSE Collected: 08/27/2018 Status: F Source: [place] 1:[address] [facility] REPOSITORY TYPE CODE TESTS RESULT OUT OF REFERENCE UNITS RANGE LAB L501.080 70-110 mg/dL High BEDSIDE GLU 176 Result Comment: MANAGEMENT OF PATIENT CARE PER NURSING PROTOCOL Performed By: #### L501.080 #### [facility] Point of Care [address] [place] [address] BEDSIDE GLUCOSE Collected: 08/27/2018 Status: F Source: [place] 12:[address] [facility] REPOSITORY TYPE CODE TESTS RESULT OUT OF REFERENCE UNITS RANGE LAB L501.080 70-110 mg/dL Low BEDSIDE GLU 67 Result Comment: Snack Given MANAGEMENT OF PATIENT CARE PER NURSING PROTOCOL Performed By: #### L501.080 #### [facility] Point of Care [address] [place] [address] BEDSIDE GLUCOSE Collected: 08/27/2018 Status: F Source: [place] 11:[address] [facility] REPOSITORY TYPE CODE TESTS RESULT OUT OF RANGE REFERENCE UNITS LAB L501.080 70-110 mg/dL Normal BEDSIDE GLU 96 Result Comment: MANAGEMENT OF PATIENT CARE PER NURSING PROTOCOL Performed By: #### L501.080 #### [facility] Point of Care [address] [place] [address] ABDOMEN SINGLE VIEW Observed: 08/27/2018 Status: F Source: [place] 9:[address] [facility] REPOSITORY [facility] Imaging Services [address] [place] [address] Abdomen Single View MR#: [id number] Acct: [id number] Name: DIONY CARRILLO Rep #: [id number] : 1965 F 53 From: Milli Haq MD PCP: Alessandro Eric MD Status: ADM IN Study: Abdomen Single View Date of Exam: 08/27/18 Exam# [id number] Ordering Dr: Chauncey Hassan MD STUDY: X-RAY - ABDOMEN/PELVIS REASON FOR EXAM: Female, 53 years old. The patient TECHNIQUE: Single AP view of the abdomen / pelvis. COMPARISON: None. FINDINGS: Normal visualized lung bases. There is a moderate amount of colonic fecal material. There is no demonstrated free abdominal air. The liver is partially visualized. The renal silhouettes are mostly obscured. The symphysis pubis is out of the kgyls-bp-ahze on this study. There are calcified phleboliths in the pelvis. There are diffuse degenerative changes of the visualized lumbar spine. RAD/Abdomen Single View IMPRESSION: Limited study.. Moderate constipation. Electronically Signed: Milli Haq MD at 10:00 EST Tel , Service support , CC: Alessandro Eric MD; Chauncey Hassan MD Mobile Lounge Driver Or Operator: Signed BEDSIDE GLUCOSE Collected: 08/27/2018 Status: F Source: [place] 8:[address] [facility] REPOSITORY TYPE CODE TESTS RESULT OUT OF REFERENCE UNITS RANGE LAB L501.080 70-110 mg/dL High BEDSIDE GLU 161 Result Comment: MANAGEMENT OF PATIENT CARE PER NURSING PROTOCOL Performed By: #### L501.080 #### [facility] Point of Care [address] [place] [address] BEDSIDE GLUCOSE Collected: 08/27/2018 Status: F Source: [place] 6:[address] [facility] REPOSITORY TYPE CODE TESTS RESULT OUT OF REFERENCE UNITS RANGE LAB L501.080 70-110 mg/dL High BEDSIDE GLU 132 Result Comment: MANAGEMENT OF PATIENT CARE PER NURSING PROTOCOL Performed By: #### L501.080 #### [facility] Point of Care [address] [place] [address] BEDSIDE GLUCOSE Collected: 08/26/2018 Status: F Source: [place] 9:[address] [facility] REPOSITORY TYPE CODE TESTS RESULT OUT OF REFERENCE UNITS RANGE LAB L501.080 70-110 mg/dL High BEDSIDE GLU 112 Result Comment: Dr Orders Followed MANAGEMENT OF PATIENT CARE PER NURSING PROTOCOL Performed By: #### L501.080 #### [facility] Point of Care [address] [place] [address] BEDSIDE GLUCOSE Collected: 08/26/2018 Status: F Source: [place] 8:[address] [facility] REPOSITORY TYPE CODE TESTS RESULT OUT OF REFERENCE UNITS RANGE LAB L501.080 70-110 mg/dL Low BEDSIDE GLU 69 Result Comment: Dr Orders Followed MANAGEMENT OF PATIENT CARE PER NURSING PROTOCOL Performed By: #### L501.080 #### [facility] Point of Care [address] [place] [address] BEDSIDE GLUCOSE Collected: 08/26/2018 Status: F Source: [place] 7:[address] [facility] REPOSITORY TYPE CODE TESTS RESULT OUT OF REFERENCE UNITS RANGE LAB L501.080 70-110 mg/dL High BEDSIDE GLU 138 Result Comment: MANAGEMENT OF PATIENT CARE PER NURSING PROTOCOL Performed By: #### L501.080 #### [facility] Point of Care [address] [place] [address] BEDSIDE GLUCOSE Collected: 08/26/2018 Status: F Source: [place] 4:[address] [facility] REPOSITORY TYPE CODE TESTS RESULT OUT OF REFERENCE UNITS RANGE LAB L501.080 70-110 mg/dL High BEDSIDE GLU 240 Result Comment: Dr Orders Followed MANAGEMENT OF PATIENT CARE PER NURSING PROTOCOL Performed By: #### L501.080 #### [facility] Point of Care [address] [place] [address] BEDSIDE GLUCOSE Collected: 08/26/2018 Status: F Source: [place] 11:[address] [facility] REPOSITORY TYPE CODE TESTS RESULT OUT OF REFERENCE UNITS RANGE LAB L501.080 70-110 mg/dL High BEDSIDE GLU 338 Result Comment: MANAGEMENT OF PATIENT CARE PER NURSING PROTOCOL Performed By: #### L501.080 #### [facility] Point of Care [address] [place] [address] FOOT MIN 3 VIEWS Observed: 08/26/2018 Status: F Source: [place] 8:[address] [facility] REPOSITORY [facility] Imaging Services [address] [place] [address] Foot min 3 Views MR#: [id number] Acct: [id number] Name: DIONY CARRILLO Rep #: [id number] : 1965 F 53 From: Kyle Warren DO PCP: Alessandro Eric MD Status: ADM IN Study: Foot min 3 Views Date of Exam: 08/26/18 Exam# [id number] Ordering Dr: Sendy Allen DPM STUDY: X-RAY - RIGHT FOOT CLINICAL: Female, 53 years old. Injury. TECHNIQUE: 3 view(s) of the foot. COMPARISON: 17 August 2018. FINDINGS: There is demineralization of the rear and midfoot bones. Diffuse degenerative changes of the midfoot are present with large dorsal osteophyte formation. Degenerative changes throughout the tarsal metatarsal joints are present with sclerosis and underlying lucencies. There is amputation of the proximal fifth metatarsal. Normal metatarsophalangeal joint of the great toe. Normal tibial and fibular sesamoid bones. Normal interphalangeal joint of the great toe. Normal phalanges of the great toe. Normal second through fifth metatarsophalangeal joints. Normal interphalangeal joints and phalanges of the lesser toes. The soft tissue structures are unremarkable. RAD/Foot min 3 Views IMPRESSION: Interval underlying lucencies of the tarsometatarsal joints particularly along the second and third metatarsal can be seen in May BE due to previous injury with acute on chronic injury not excluded. Underlying infectious etiology cannot be excluded. If concern for mid foot infection recommend MRI imaging versus nuclear medicine bone scan for further assessment. Additional degenerative changes as above. Electronically Signed: Kyle WarrenDO at 8:55 EST , Service support , CC: BRITTANIE Allen; Alessandro Eric MD Mobile Lounge Driver Or Operator: Signed FOOT MIN 3 VIEWS Observed: 08/26/2018 Status: F Source: [place] 8:[address] [facility] REPOSITORY [facility] Imaging Services [address] [place], [place] [address] [place] [address] Foot min 3 Views MR#: [id number] Acct: [id number] Name: DIONY CARRILLO Rep #: [id number] : 1965 F 53 From: Juanjo Antunez MD PCP: Alessandro Eric MD Status: ADM IN Study: Foot min 3 Views Date of Exam: 08/26/18 Exam# [id number] Ordering Dr: Sendy Allen DPM STUDY: X-RAY - LEFT FOOT CLINICAL: Female, 53 years old. Infection TECHNIQUE: 3 view(s) of the foot. COMPARISON: None. FINDINGS: There are status post amputation changes through the proximal shaft of the fifth metatarsal. There is a soft tissue defect at the surgical site. The remaining osseous structures and articular surfaces of the left foot appear intact. There is no soft tissue gas or radiopaque foreign body. RAD/Foot min 3 Views IMPRESSION: Status post amputation changes through the proximal shaft of the fifth metatarsal. Electronically Signed: Juanjo Antunez MD at 9:01 EST , Service support , CC: BRITTANIE Allen; Alessandro Eric MD Mobile Lounge Driver Or Operator: Signed ANKLE MIN 3 VIEWS Observed: 08/26/2018 Status: F Source: [place] 8:[address] [facility] REPOSITORY [facility] Imaging Services [address] [place] [address] Ankle min 3 Views MR#: [id number] Acct: [id number] Name: DIONY CARRILLO Rep #: [id number] : 1965 F 53 From: Kyle Warren DO PCP: Alessandro Eric MD Status: ADM IN Study: Ankle min 3 Views Date of Exam: 08/26/18 Exam# [id number] Ordering Dr: Sendy Allen DPM STUDY: X-RAY - RIGHT ANKLE REASON FOR EXAM: Female, 53 years old. Injury. TECHNIQUE: 3 view(s) of the ankle. COMPARISON: None. FINDINGS: Normal visualized distal tibia and fibula. Degenerative changes the medial and lateral malleolus are present with cortical irregularity likely secondary to previous injury versus degenerative change. Early degenerative change of the anterior tibial talar joint is present. Normal visualized talus and calcaneus. Diffuse midfoot degenerative changes are present with large dorsal osteophyte formation and heterotopic ossification along the inferior aspect of the metatarsophalangeal joints and lateral metatarsal phalangeal joint is present. The soft tissue structures are unremarkable. RAD/Ankle min 3 Views IMPRESSION: Medial and lateral malleolus degenerative change and midfoot degenerative changes as above. No evidence of definitive acute fracture. Electronically Signed: Kyle Warren DO at 8:38 EST , Service support , CC: BRITTANIE Eric MD Mobile Lounge Driver Or Operator: Signed TRANSFER TO EXTENDED Observed: 08/26/2018 Status: F Source: [facility] 7:[address] [facility] REPOSITORY [facility] Medical Records Department [address] [place] [address] Transfer to Extended Care MR#: [id number] Acct: [id number] Name: DIONY CARRILLO Rep #: [id number] : 1965 53 From: Donovan GRANADO PCP: Alessandro Eric MD Status: DIS IN DIONY CARRILLO (Patient) (Health Ins. Claim No.) (Day of Discharge to Facility) Certification of patient admission REQUIRED AT TIME OF ADMISSION. I CERTIFY THAT POST-HOSPITAL ECF SERVICES ARE REQUIRED TO BE GIVEN ON AN IN-PATIENT BASIS BECAUSE OF THE ABOVE NAMED PATIENT'S NEED FOR [facility] CARE ON A CONTINUING BASIS FOR THE CONDITION(S) FOR WHICH HE/SHE WAS RECEIVING IN-PATIENT HOSPITAL SERVICES PRIOR TO HIS/HER TRANSFER TO THE ECF. 08/25/18 1145 <Electronically signed by Donovan GRANADO> Date Donovan GRANADO - Diet 08/24/18 09:33 Diet: Calorie Controlled Type of Dietary Supplement:: Glucerna Shake Is pt able to select menu?: Yes How many daily calories?: 1800 calorie - Routine Orders/Code Status Enema Frequency: Daily PRN Suppository Type: Dulcolax 10mg Suppository Frequency: Daily PRN Routine Lab Work: CBC - 5 days, BMP - 5 days Code Status: Full Code - Wound(s) LEFT PLANTAR ULCER Wound Type: Neuropathic/Diabetic Foot Ulcer Dressing Change: KCI wound VAC RIGHT PLANTAR ULCER Wound Type: Neuropathic/Diabetic Foot Ulcer Dressing Change: AntiMicrobial (Aquacel AG, etc) right heel Dressing Change: Continue Wound Vac. Care per ortho. Partial weightbearing to right heel, silvercel and peg assisted offloading boot. - Therapies Weight Bearing: heel touch Physical Therapy: Eval and Treat Occupational Therapy: Eval and Treat - Problem/Diagnosis (1) Cellulitis Status: Acute Current Visit: Yes (2) Diabetic foot ulcer associated with type 2 diabetes mellitus Status: Acute Current Visit: No (3) HLD (hyperlipidemia) Status: Chronic Current Visit: Yes (4) Back pain, chronic Status: Chronic Current Visit: No (5) Depression Status: Chronic Current Visit: No (6) RLS (restless legs syndrome) Status: Chronic Current Visit: No (7) Type II diabetes mellitus, uncontrolled Status: Chronic Current Visit: No - Allergies/Procedures Done in Hospital Allergies/Adverse Reactions: Allergies oxycodone [Oxycodone] Allergy (Verified 08/17/18 14:04) Rash oxycodone HCl [From OxyContin] Allergy (Verified 08/17/18 14:04) Rash Penicillins Allergy (Verified 08/17/18 14:04) Shortness of breath Procedures: Wound Vac placement - Type of Care/Length of Stay Estimated LOS: Convalescent Care Less Than 30 days Type of Care Needed: Skilled Rehab Potential: Fair Prognosis: Fair - Additional Orders/Day of Discharge Day of Discharge: 08/25/18 - Dietary and Speech Recommendations Dietitian Recommendations/Changes: Rec adv JOSHUA to 1800 calorie diet. Rec Ted 1 packet BID for wound healing--ordered through pharmacy and d/c Glucerna shake once Ted ordered. Will provide Ensure Clear w/ meals while on clear liquid diet. - Follow Up Care Primary Care Physician: Alessandro Eric MD [Primary Care Provider] - Please follow up with your Primary Care Physician in: 2 weeks Please Follow Up With: Sendy Allen DPM When: 1 week 08/25/18 1145 <Electronically signed by Donovan GRANADO> Date Donovan GRANADO CC: BRITTANIE Allen; Alessandro Eric MD; Kike Tello MD Signed DISCHARGE SUMMARY Observed: 08/26/2018 Status: F Source: [place] 7:[address] [facility] REPOSITORY [facility] Medical Records Department [address] [place] [address] Discharge Summary 08/25/18 1445 MR#: [id number] Acct: [id number] Name: MENGGAGANDEEPDIONY Rep #: [id number] : 1965 53 From: Donovan GRANADO PCP: Jeaneth DELVALLE,Alessandro Status: DIS IN Y Location: MS3 DI515-3 Discharge Date and Diagnosis - Problem List Patient Problems: Active and Suspected Problems Cellulitis (Acute) Date of Admission: 08/22/18 Date of Discharge: 08/25/18 - Primary Discharge Diagnosis Active and Suspected Problems Left foot diabetic ulcer with cellulitis, streptococcal and staphylococcal, MSSA Type 2 diabetes mellitus, poorly controlled A1c 12% Chronic back pain Restless leg syndrome Hyperlipidemia Depression and anxiety - Secondary Discharge Diagnosis Chronic Problems HLD (hyperlipidemia) (Chronic) Back pain, chronic (Chronic) Hyponatremia (Chronic) Depression (Chronic) RLS (restless legs syndrome) (Chronic) Type II diabetes mellitus, uncontrolled (Chronic) Anxiety state (Chronic) Hospital Course and Treatment Imaging Results: MRI/Lower Ext No Joint W/WO Cont IMPRESSION: Cellulitis without demonstrated soft tissue abscess. Arthropathy of the navicular-cuneiform and second through fifth tarsometatarsal joints suggestive of neuropathic osteoarthropathy. Myositis of the flexor digitorum brevis and abductor digiti minimi muscles. Atrophy of the intrinsic muscles of the foot suggestive of peripheral neuropathy. Amputation of the fifth digit at the level of the proximal metatarsal diaphysis without demonstrated recurrent osteomyelitis. RAD/Foot 2 Views IMPRESSION: Intraoperative fluoroscopic image guidance. 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 She had recently been on doxycycline and had not had improvement in her wounds. She had had a previous amputation of the mid and distal portion of the fifth metatarsal and fifth toe. She was admitted to the general medical floor with podiatry on consult, she was taken to the operating room on 08/23/2018. While here she was on Flagyl and cefepime. Cultures demonstrated Streptococcus agalactia and MSSA. Infectious disease was consulted. She was placed on p.o. Flagyl, Doxy, Keflex to continue as an outpatient. She was advised to have partial weightbearing with the boot per podiatry. Wound care was provided, a wound VAC was placed. With the severity of her wound, chronic wounds, and related debility, assisted was recommended. She was agreeable, and she was discharged to assisted in stable condition. She will need to follow-up weekly with podiatry, and she will need to follow-up with her PCP in 2 weeks. Fungal, acid-fast cultures are pending. Bone culture preliminary is negative. Please note insulin therapy was adjusted while here as an A1c was 12%, and she is very poorly controlled. This patient was seen by Donovan Samuels PA-C under the supervision of Doctor Perez. [] Patient Problems: Active and Suspected Problems Cellulitis (Acute) - Physical Exam General: Alert, Oriented x3, Cooperative HEENT: Atraumatic, PERRLA, EOMI, Normocephalic Neck: Supple, No JVD, Negative Carotid Bruits Lungs: Clear to auscultation, Normal air movement Cardiovascular: Regular rate, No murmurs Abdomen: Bowel Sounds Present, Soft, Non Tender Extremities: No edema, Capillary Refill Less than 3 Seconds Skin: No rashes, No breakdown Musculoskeletal: No Tenderness to Palpation of Joints or Extremities Neurological: Cranial nerves II-XII grossly intact Psych/Mental Status: Normal Affect, Appropriate Vital Signs Temp Pulse Resp BP Pulse Ox 98.5 F 83 16 126/72 H 96 08/25/18 13:01 08/25/18 13:01 08/25/18 13:01 08/25/18 13:01 08/25/18 13:01 Oxygen Flow Rate (L/min) 1 Oxygen Delivery Method Room Air Weight: 177 lb 12.845 oz Body Mass Index (BMI) 28.7 Intake and Output for Last 24 Hours Intake Total 3587 / 3587 1273 / 1273 577 / 577 Output Total 700 / 700 400 / 400 Balance 3587 / 3587 573 / 573 177 / 177 Microbiology Past 72 Hours 08/23/18 18:00 Gram Stain - Final Bone - Left Foot Wound Culture - Preliminary 08/22/18 16:15 Gram Stain - Final Laboratory Tests Past 24 Hrs Hgb 10.1 L Hct 31.6 L POC Glucose POC Glucose 188 H 127 H 254 H POC Glucose 124 H Discharge Diet: 1800 Calorie Control Diet Discharge Activity: Return to Normal Activity Home Medications: Medications to take at Discharge Ropinirole HCl [Requip] 3 mg PO BID 01/13/14 Insulin Aspart [Novolog Flexpen] 15 units SC TIDCM 01/27/15 Ascorbic Acid 500 mg PO BID 08/22/18 Collagenase [Santyl] 1 applicatio TOPICAL DAILY 08/22/18 Ergocalciferol [Vitamin D] 50,000 unit PO GRAY 08/22/18 Gabapentin [Neurontin] 800 mg PO TID 08/22/18 Omeprazole [Prilosec] 20 mg PO DAILY 08/22/18 Rosuvastatin Calcium [Crestor] 40 mg PO DAILY 08/22/18 Acetaminophen [Tylenol Tablet] 650 mg PO Q6H PRN PRN tablet 08/25/18 Bisacodyl [Dulcolax] 5 mg PO DAILY PRN PRN tablet 08/25/18 Cephalexin [Keflex] 500 mg PO Q8 #32 cap 08/25/18 Hydrocodone/Acetaminophen [Hydrocodone-Acetamin 5-325 mg] 1 tab PO Q4H PRN PRN 2 Days #12 tab 08/25/18 Insulin Glargine [Lantus SoloStar Pen] 30 units SC BID pen 08/25/18 Magnesium Hydroxide [Milk Of Magnesia] 30 ml PO DAILY PRN PRN udc 08/25/18 Metronidazole [Flagyl] 500 mg PO TID #32 tab 08/25/18 Psyllium [Metamucil] 1 packet PO DAILY PRN PRN packet 08/25/18 Smz/Tmp Ds [Bactrim Ds] 1 tab PO BID #16 tab 08/25/18 Following Prescrptions Were Given to Patient: Cephalexin [Keflex] 500 mg PO Q8 #32 cap Hydrocodone/Acetaminophen [Hydrocodone-Acetamin 5-325 mg] 1 tab PO Q4H PRN PRN 2 Days #12 tab PRN Reason: Mod-Severe Pain (4-10/) Metronidazole [Flagyl] 500 mg PO TID #32 tab Smz/Tmp Ds [Bactrim Ds] 1 tab PO BID #16 tab Primary Care Physician: Alessandro Eric MD [Primary Care Provider] - Please follow up with your Primary Care Physician in: 2 weeks Please Follow Up With: Sendy Allen DPM When: 1 week Disposition: Penitentiary facility Minutes spent on discharge:: 35 Patient Condition:: Stable Medical Necessity - Tobacco Use Smoking Status: Never smoker Meaningful Use Info Meaningful Use Diagnoses (Choose all that apply): None applicable 08/25/18 1453 <Electronically signed by Donovan GRANADO> Date Donovan GRANADO 08/26/18 0746<Electronically signed by Alessandro Perez DO> Cosigner Signature (if applicable): Date Alessandro Perez DO CC: LOY Samuels; Alessandro Eric MD; Alessanrdo Perez DO Signed CBC W/DIFF, AUTOMATED Collected: 08/26/2018 Status: F Source: [place] 6:[address] [facility] REPOSITORY TYPE CODE TESTS RESULT OUT OF RANGE REFERENCE UNITS LAB L100.1000 4.4-11.0 K/mm3 Normal WBC 8.6 LAB L100.1200 4.2-5.4 M/mm3 Low RBC 3.93 LAB L100.1300 12.0-15.0 g/dl Low HGB 10.9 LAB L100.1400 37-47 % Low HCT 35.0 LAB L100.1500 81-99 fL Normal MCV 89.1 LAB L100.1600 27.0-32.0 pg Normal MCH 27.7 LAB L100.1700 32-36 g/gl Low MCHC 31.1 LAB L100.1810 11.6-14.6 % Normal RDW CV 13.3 LAB L100.1820 35.1-43.9 fl Normal RDW SD 43.5 LAB L100.1900 150-450 K/mm3 Normal PLT 374 LAB L100.2000 6.2-12.0 fl Normal MPV 10.2 LAB L100.2100 47-70 % High NEUT% 74.0 LAB L100.2200 19-41 % Low LY% 17.6 LAB L100.2300 0-10 % Normal MONO% 6.3 LAB L100.2400 0-5 % Normal EO% 1.6 LAB L100.2500 0-1 % Normal BASO% 0.4 LAB L100.2550 0.0-0.9 % Normal IM GRAN % 0.100 Result Comment: IG% - Immature Granulocytes (promyelocytes, myelocytes and metamyelocytes) > 1% indicates that a LEFT SHIFT is Present. LAB L100.2620 2.0-7.7 X10 3/uL Normal Absolute Neut 6.3 LAB L100.2720 0.83-4.51 X10 3/ul Normal Absolute Lymph 1.51 Performed By: #### L100.0100 #### [facility] [address] [place], [address] BASIC METABOLIC Collected: 08/26/2018 Status: F Source: [place] PROFILE (BMP) 6:[address] [facility] REPOSITORY TYPE CODE TESTS RESULT OUT OF RANGE REFERENCE UNITS LAB L501.0100 74-106 mg/dL High GLU 158 Result Comment: Fasting Glucose result greater than or equal to 126 mg/dL suggests DIABETES MELLITUS per A.D.A. criteria. Please note revised GLUCOSE reference range effective 2017. LAB L501.1000 7-18 mg/dL Normal BUN 10 LAB L501.1100 0.55-1.02 mg/dL Normal CREAT,SERUM 0.87 Result Comment: The validity of the calculated GFR AND GFRAA in patients over 70 years has not been determined. Clinical correlation is essential. LAB L501.1110 >60 mL/min Normal EST GFR 72 Result Comment: Non- GFR Calc LAB L501.1115 >60 mL/min Normal EST GFR - AA 88 Result Comment: GFR Calc LAB L501.1255 ml/min Normal Estimated CRCL 70.01 LAB L501.1300 10-20 RATIO Normal BUN/CRE 11.5 LAB L501.2200 8.5-10 mg/dL Normal .1 CA 8.7 LAB L501.5300 136-14 mmol/L Normal 5 NA 139 LAB L501.5600 3.5-5. mmol/L Normal 1 K 4.0 LAB L501.5900 98-107 mmol/L Normal CL 106 LAB L501.6100 21.0-3 mmol/L Normal 2.0 CO2 26.0 LAB L501.6200 5-15 Normal GAP 7 Performed By: #### L500.2500 #### [facility] [address] [facility] [address] BEDSIDE GLUCOSE Collected: 08/26/2018 Status: F Source: [place] 6:[address] [facility] REPOSITORY TYPE CODE TESTS RESULT OUT OF REFERENCE UNITS RANGE LAB L501.080 70-110 mg/dL High BEDSIDE GLU 127 Result Comment: MANAGEMENT OF PATIENT CARE PER NURSING PROTOCOL Performed By: #### L501.080 #### [facility] Point of [facility] [address] [place] [address] BEDSIDE GLUCOSE Collected: 08/25/2018 Status: F Source: [place] 8:[address] [facility] REPOSITORY TYPE CODE TESTS RESULT OUT OF RANGE REFERENCE UNITS LAB L501.080 70-110 mg/dL Normal BEDSIDE GLU 105 Result Comment: MANAGEMENT OF PATIENT CARE PER NURSING PROTOCOL Performed By: #### L501.080 #### [facility] Point of Care [address] [place] [address] HISTORY AND PHYSICAL Observed: 08/25/2018 Status: F Source: [place] EXAM 5:[address] [facility] REPOSITORY [facility] Medical Records Department [address] [place] [id number] History and Physical 08/25/18 1714 MR#: [id number] Acct: [id number] Name: DIONY CARRILLO Rep #: [id number] : 1965 53 From: Chauncey Hassan MD PCP: Alessandro Eric MD Status: ADM IN Location: [place] [address] Problem List (1) Neuropathic pain Status: Chronic (2) GERD (gastroesophageal reflux disease) Status: Chronic (3) Hypomagnesemia Status: Chronic (4) Cellulitis Status: Acute (5) Back pain, chronic Status: Chronic (6) Hyponatremia Status: Chronic (7) Depression Status: Chronic (8) Diabetic foot ulcer associated with type 2 diabetes mellitus Status: Acute (9) RLS (restless legs syndrome) Status: Chronic (10) Type II diabetes mellitus, uncontrolled Status: Chronic History of Present Illness Date of Admission: 08/25/18 Chief Complaint: Here for rehabilitation, strengthening, wound care, prior to discharge home alone. The patient is a 53 year old Female with below past medical history with followin08/22/2018 Admit to Hospital. Left foot pain, left foot diabetic ulcer. Sees Dr. Allen, on Doxycycline. 08/17/2018 wound culture grew Group B strep. IV Vancomycin, Levaquin, Flagyl for infected foot. 08/22/2018 MRI left midfoot negative osteomyelitis. 08/23/2018 Dr. Tello culture grew MSSA, GBS, GPC. MRSA negative. Antibiotics narrowed to Cefepime, Flagyl. 08/23/2018 Dr. Allen incised and drainage left foot with bone biopsy of 5th metatarsal. 08/24/2018 Dr. Tello culture MSSA, GBS. Continue Cefepime, Flagyl. 08/24/2018 Wound VAC to left foot. 08/25/2018 Dr. Tello recommended transitioning antibiotics to oral Bactrim, Keflex, Flagyl. 08/25/2018 Admit to TCU with debility, here for rehabilitation, strengthening, wound care prior to discharge home. Past Medical History Past Medical History (Chronic Problems): Chronic Problems HLD (hyperlipidemia) (Chronic) Neuropathic pain (Chronic) GERD (gastroesophageal reflux disease) (Chronic) Hypomagnesemia (Chronic) Back pain, chronic (Chronic) Hyponatremia (Chronic) Depression (Chronic) RLS (restless legs syndrome) (Chronic) Type II diabetes mellitus, uncontrolled (Chronic) Anxiety state (Chronic) Allergies oxycodone [Oxycodone] Allergy (Verified 08/17/18 14:04) Rash oxycodone HCl [From OxyContin] Allergy (Verified 08/17/18 14:04) Rash Penicillins Allergy (Verified 08/17/18 14:04) Shortness of breath Home Medications: Ambulatory Orders Medication Instructions Recorded Ropinirole HCl [Requip] 3 mg PO BID 01/13/14 Surgical History: - - status post I AND D of R foot 5th metatarsal abscess, R 5th toe amputation, and partial R 5th metatarsal amputation all in 2014. Bilateral carpal tunnel surgery 1994, right shoulder surgery in 1994, section x2. Psychiatric History: Anxiety, Depression BEHAVIORAL THERAPIST History: No pertinent BEHAVIORAL THERAPIST history Lives: Alone - Spouse in [place], met online, talked for 1 year, then visited in [place]. Smoking Status: Never smoker Tobacco Use: Non-smoker Alcohol: None Drugs: None - *Family History Maternal History Items: Diabetes, Hypertension, - - Her mother at the age of 67 to a blood clot to the brain. She had had multiple strokes preceding that. Paternal History Items: - - Patient states her father when she was 5 years old, denies known medical history, denies known cardiac history. Sibling History Items: - - She has one brother who is secondary to cancer and she does not know what kind of cancer he had. She also has 3 brothers with a history of cardiovascular disease, stents and coronary artery bypass grafting. Review of Systems Constitutional: Denies: Chills, Fever, Weight Change HEENT: Denies: Head Aches, Sinus Congestion, Sinus Drainage Cardiovascular: Denies: Chest Pain, Palpitations Respiratory: Denies: Cough, Shortness of breath at rest, Sputum production Gastrointestinal: Denies: Abdominal Pain, Nausea, Vomiting Genitourinary: Denies: Dysuria Musculoskeletal: Denies: Joint Pain, Joint Tenderness Skin: Denies: Rash, Wounds Neurological: Denies: Numbness, Tingling, Focal weakness Psychiatric: Denies: Anxiety, Depression, Homicidal Ideations, Suicidal Ideations Hematologic/ Lymphatic: Denies: Easy Bruising, Easy Bleeding VTE Information - Inpt Only VTE Present on Admission: No VTE Mechan Device Prophylaxis: Knee High ROCIO Hose VTE Pharm Prophylaxis ordered?: Yes - Physical Exam General: Alert, Oriented x3, Cooperative HEENT: Atraumatic, PERRLA, EOMI, Normocephalic Neck: Supple, No JVD, Negative Carotid Bruits Lungs: Clear to auscultation, Normal air movement Cardiovascular: Regular rate, No murmurs Abdomen: Bowel Sounds Present, Soft, Non Tender Extremities: No edema, Capillary Refill Less than 3 Seconds Skin: No rashes, No breakdown, Ulcer/ Wound - Left foot wound with wound VAC. Musculoskeletal: No Tenderness to Palpation of Joints or Extremities Neurological: Cranial nerves II-XII grossly intact Psych/Mental Status: Normal Affect, Appropriate Vital Signs Temp Pulse Resp BP Pulse Ox 98.5 F 77 16 115/56 L 96 08/25/18 16:00 08/25/18 16:00 08/25/18 16:00 08/25/18 16:00 08/25/18 16:00 Oxygen Delivery Method Room Air Body Mass Index (BMI) 28.7 POC Glucose POC Glucose 115 H Assessment/Plan All Active Problems Cellulitis (Acute) Diabetic foot ulcer associated with type 2 diabetes mellitus (Acute) Hepatitis B (Resolved) 53 year old female with below past medical history significant for uncontrolled Diabetes Mellitus II, hospitalized for infected left diabetic foot ulcer, underwent debridement 08/23/[address] Allen, admitted to TCU with debility, here for rehabilitation, strengthening, wound care, prior to discharge home. * Debility - PT/OT. * Pain - Tylenol 1000MG Q6H PRN mild pain, Oxycodone 5MG Q4H PRN moderate pain. * Bowel - Miralax 17GM daily, Senna/colace 1 tablet BID, Dulcolax 10MG PO daily PRN. * Pneumonia vaccination - Administer Prevnar 13 and/or Pneumovax 23 as necessary. * DVT prophylaxis - Lovenox 40MG SC daily. * Vitamin C deficiency - Vitamin C 500MG BID. * Hyperlipidemia - Atorvastatin 80MG QHS. * Left foot ulcer infection - Keflex 500MG Q8H, Flagyl 50MG TID, Bactrim DS BID thru 09/02/2018, Dr. Tello following. * Left foot wound - Wound Vac, Santyl topically daily, Ted 1 packet BID. * Vitamin D deficiency - D2 50,000 units per week. * Diabetic polyneuropathy - Gabapentin 800MG TID. * Diabetes Mellitus II - Lantus 30 units BID, Humalog 15 units TID. * GERD - Pantoprazole 40MG daily. * Restless Leg syndrome - Mirapex 1.5MG BID. 08/25/18 4770 <Electronically signed by Chauncey Hassan MD> Date Chauncey Hassan MD Cosigner Signature: Date (if applicable) CC: Alessadnro Eric MD; Chauncey Hassan MD Signed BEDSIDE GLUCOSE Collected: 08/25/2018 Status: F Source: [place] 4:[address] [facility] REPOSITORY TYPE CODE TESTS RESULT OUT OF REFERENCE UNITS RANGE LAB L501.080 70-110 mg/dL High BEDSIDE GLU 115 Result Comment: MANAGEMENT OF PATIENT CARE PER NURSING PROTOCOL Performed By: #### L501.080 #### [facility] Point of Care [address] [place] [address] BEDSIDE GLUCOSE Collected: 08/25/2018 Status: F Source: [place] 11:[address] [facility] REPOSITORY TYPE CODE TESTS RESULT OUT OF REFERENCE UNITS RANGE LAB L501.080 70-110 mg/dL High BEDSIDE GLU 188 Result Comment: MANAGEMENT OF PATIENT CARE PER NURSING PROTOCOL Performed By: #### L501.080 #### [facility] Point of Care [address] [place] [address] BEDSIDE GLUCOSE Collected: 08/25/2018 Status: F Source: [place] 6:[address] [facility] REPOSITORY TYPE CODE TESTS RESULT OUT OF REFERENCE UNITS RANGE LAB L501.080 70-110 mg/dL High BEDSIDE GLU 127 Result Comment: MANAGEMENT OF PATIENT CARE PER NURSING PROTOCOL Performed By: #### L501.080 #### [facility] Point of Care [address] [place] [address] HH, HEMOGLOBIN AND Collected: 08/25/2018 Status: F Source: [place] HEMATOCRIT 5:[address] [facility] REPOSITORY TYPE CODE TESTS RESULT OUT OF RANGE REFERENCE UNITS LAB L100.1300 12.0-15.0 g/dl Low HGB 10.1 LAB L100.1400 37-47 % Low HCT 31.6 Performed By: #### L100.0600 #### [facility] [address] [place], [address] BEDSIDE GLUCOSE Collected: 08/24/2018 Status: F Source: [place] 10:[address] [facility] REPOSITORY TYPE CODE TESTS RESULT OUT OF REFERENCE UNITS RANGE LAB L501.080 70-110 mg/dL High BEDSIDE GLU 254 Result Comment: MANAGEMENT OF PATIENT CARE PER NURSING PROTOCOL Performed By: #### L501.080 #### [facility] Point of Care [address] [place], [place] [id number] BEDSIDE GLUCOSE Collected: 08/24/2018 Status: F Source: [place] 4:[address] [facility] REPOSITORY TYPE CODE TESTS RESULT OUT OF REFERENCE UNITS RANGE LAB L501.080 70-110 mg/dL High BEDSIDE GLU 124 Result Comment: MANAGEMENT OF PATIENT CARE PER NURSING PROTOCOL Performed By: #### L501.080 #### [facility] Point of Care [address] [place] [address] BEDSIDE GLUCOSE Collected: 08/24/2018 Status: F Source: [place] 11:[address] [facility] REPOSITORY TYPE CODE TESTS RESULT OUT OF REFERENCE UNITS RANGE LAB L501.080 70-110 mg/dL High BEDSIDE GLU 147 Result Comment: MANAGEMENT OF PATIENT CARE PER NURSING PROTOCOL Performed By: #### L501.080 #### [facility] Point of Care [address] [place] [address] CBC-COMPLETE BLOOD CNT Collected: 08/24/2018 Status: F Source: [place] NO DIFF 7:[address] [facility] REPOSITORY TYPE CODE TESTS RESULT OUT OF RANGE REFERENCE UNITS LAB L100.1000 4.4-11.0 K/mm3 Normal WBC 7.9 LAB L100.1200 4.2-5.4 M/mm3 Low RBC 3.37 LAB L100.1300 12.0-15.0 g/dl Low HGB 9.7 LAB L100.1400 37-47 % Low HCT 29.7 LAB L100.1500 81-99 fL Normal MCV 88.1 LAB L100.1600 27.0-32.0 pg Normal MCH 28.8 LAB L100.1700 32-36 g/gl Normal MCHC 32.7 LAB L100.1810 11.6-14.6 % Normal RDW CV 12.9 LAB L100.1820 35.1-43.9 fl Normal RDW SD 40.2 LAB L100.1900 150-450 K/mm3 Normal PLT 323 LAB L100.2000 6.2-12.0 fl Normal MPV 10.4 Performed By: #### L100.0500 #### [facility] [address] [place], [address] VANCOMYCIN, TROUGH Collected: 08/24/2018 Status: F Source: [place] LEVEL 7:[address] [facility] REPOSITORY Order Comment: Time Medication is to be Given? 0830 TYPE CODE TESTS RESULT OUT OF RANGE REFERENCE UNITS LAB L501.8820 5.0-15.0 ug/mL Normal VANCO, TROUGH 5.5 Result Comment: VANCOMYCIN STANDARED DRUG THERAPY TROUGH LEVEL: 5.0 - 15.0 mg/L VANCOMYCIN HIGH INTENSITY THERAPY TROUGH LEVEL: 15.0 - 20.0 mg/L High Intensity therapy recommended for serious life threatening infections include: - Meningitis -Endocarditis -Pneumonia (Ventilator/Healtcare Associated) -Sepsis PLEASE CONTACT PHARMACY SERVICES (#[id number]) FOR INTERPRETATION OF RESULTS. Performed By: #### L501.8820 #### [facility] [address] [place], [address] BASIC METABOLIC Collected: 08/24/2018 Status: F Source: [place] PROFILE (BMP) 7:[address] [facility] REPOSITORY TYPE CODE TESTS RESULT OUT OF RANGE REFERENCE UNITS LAB L501.0100 74-106 mg/dL High GLU 200 Result Comment: Glucose result greater than or equal to 200 mg/dL suggests DIABETES MELLITUS per A.D.A. criteria. Please note revised GLUCOSE reference range effective 2017. LAB L501.1000 7-18 mg/dL Normal BUN 15 LAB L501.1100 0.55-1.02 mg/dL Normal CREAT,SERUM 0.97 Result Comment: The validity of the calculated GFR AND GFRAA in patients over 70 years has not been determined. Clinical correlation is essential. LAB L501.1110 >60 mL/min Normal EST GFR 64 Result Comment: Non- GFR Calc LAB L501.1115 >60 mL/min Normal EST GFR - AA 77 Result Comment: GFR Calc LAB L501.1255 ml/min Normal Estimated CRCL 62.79 LAB L501.1300 10-20 RATIO Normal BUN/CRE 15.5 LAB L501.2200 8.5-10 mg/dL Low .1 CA 8.0 LAB L501.5300 136-14 mmol/L Normal 5 NA 142 LAB L501.5600 3.5-5. mmol/L Normal 1 K 3.8 LAB L501.5900 98-107 mmol/L Normal CL 107 LAB L501.6100 21.0-3 mmol/L Normal 2.0 CO2 24.0 LAB L501.6200 5-15 Normal GAP 11 Performed By: #### L500.2500 #### [facility] [address] [place], [place], [address] BEDSIDE GLUCOSE Collected: 08/24/2018 Status: F Source: [place] 6:[address] [facility] REPOSITORY TYPE CODE TESTS RESULT OUT OF REFERENCE UNITS RANGE LAB L501.080 70-110 mg/dL High BEDSIDE GLU 237 Result Comment: MANAGEMENT OF PATIENT CARE PER NURSING PROTOCOL Performed By: #### L501.080 #### [facility] Point of Care [address] [place], [place] [address] CNOP Observed: 08/24/2018 Status: COMPLETED Source: [place] 12:00 AM [facility] REPOSITORY Operative Note (Enc) (PODIWS) Progress Notes: Cecy Carbajal RN 08/24/2018 4:57 PM Signed OPERATIVE NOTATION FOR [facility] SURGICAL PROCEDURE. August 23 2018 Diony Niru Carrillo 1965 [id number] female PROCEDURE: Incision and drainage, R SURGEON: Sendy Allen DPM [place]'S MATE: None DEPT: WQ PROVIDER: Sendy Allen DPM POS: [id number] DIAGNOSIS: (E11.621, L97.412) Diabetic ulcer of right midfoot associated with type 2 diabetes mellitus, with fat layer exposed (HCC) (primary encounter diagnosis) ASA CLASS: 2 - mild FINDINGS: see path in GoChime COMPLICATIONS: None PMHx - PAST MEDICAL HISTORY Diagnosis Date - Chronic depressive personality disorder - Degenerative disc disease - Diabetes mellitus without mention of complication Diabetes mellitus - Fallen arches (Broken) on both sides - Polyneuropathy in diabetes(357.2) - Restless legs syndrome (RLS) COMORBIDITIES - DM Type 2 Post Op Occurrences - None Wound Classification - Clean Operative note dictated in the [facility] dictation system. Encounter Status:Closed by CECY CARBAJAL RN on 08/24/18 BEDSIDE GLUCOSE Collected: 08/23/2018 Status: F Source: [place] 11:[address] [facility] REPOSITORY TYPE CODE TESTS RESULT OUT OF REFERENCE UNITS RANGE LAB L501.080 70-110 mg/dL High BEDSIDE GLU 368 Result Comment: MANAGEMENT OF PATIENT CARE PER NURSING PROTOCOL Performed By: #### L501.080 #### [facility] Point of Care [address] [place], [place] [id number] HH, HEMOGLOBIN AND Collected: 08/23/2018 Status: F Source: [place] HEMATOCRIT 10:[address] [facility] REPOSITORY TYPE CODE TESTS RESULT OUT OF RANGE REFERENCE UNITS LAB L100.1300 12.0-15.0 g/dl Low HGB 10.2 LAB L100.1400 37-47 % Low HCT 31.8 Performed By: #### L100.0600 #### [facility] [address] [place], [place], [address] BEDSIDE GLUCOSE Collected: 08/23/2018 Status: F Source: [place] 6:[address] [facility] REPOSITORY TYPE CODE TESTS RESULT OUT OF REFERENCE UNITS RANGE LAB L501.080 70-110 mg/dL High BEDSIDE GLU 256 Result Comment: MANAGEMENT OF PATIENT CARE PER NURSING PROTOCOL Performed By: #### L501.080 #### [facility] Point of Care [address] [place], [place] [id number] Observed: 08/23/2018 Status: F Source: [place] CULTURE, DEEP WOUND 6:[address] [facility] REPOSITORY Order Date: 05/11/17 Comments: 5TH METATARSAL BONE BIOPSY Gram Stain Gram Stain No White Blood Cells No organisms seen Wound Culture No growth aerobically. Cult, Anaerobic No growth in 5 days. Performed By: #### M100.1500 #### [facility] [address] [place], [place], [address] PROGRESS Observed: 08/23/2018 Status: COMPLETED Source: [place] 4:55 PM [facility] [place] REPOSITORY HNO ID: [id number] Author: Cecy Carbajal RN Service: (none) Author Type: (none) Type: Progress Notes Filed: 08/24/2018 4:57 PM Note Text: OPERATIVE NOTATION FOR [facility] SURGICAL PROCEDURE. August 23 2018 Diony Carrillo 1965 [id number] female PROCEDURE: Incision and drainage, R SURGEON: Sendy Allen DPM [place] MATE: None DEPT: WQ PROVIDER: Sendy Allen DPM POS: 2W3=HWDJPSOSL DIAGNOSIS: (E11.621, L97.412) Diabetic ulcer of right midfoot associated with type 2 diabetes mellitus, with fat layer exposed (HCC) (primary encounter diagnosis) ASA CLASS: 2 - mild FINDINGS: see path in [employer] COMPLICATIONS: None PMHx - PAST MEDICAL HISTORY Diagnosis Date - Chronic depressive personality disorder - Degenerative disc disease - Diabetes mellitus without mention of complication Diabetes mellitus - Fallen arches (Broken) on both sides - Polyneuropathy in diabetes(357.2) - Restless legs syndrome (RLS) COMORBIDITIES - DM Type 2 Post Op Occurrences - None Wound Classification - Clean Operative note dictated in the [facility] dictation system. BEDSIDE GLUCOSE Collected: 08/23/2018 Status: F Source: [place] 4:[address] [facility] REPOSITORY TYPE CODE TESTS RESULT OUT OF REFERENCE UNITS RANGE LAB L501.080 70-110 mg/dL High BEDSIDE GLU 211 Result Comment: MANAGEMENT OF PATIENT CARE PER NURSING PROTOCOL Performed By: #### L501.080 #### [facility] Laboratory Point of Care [address] [place] [address] BEDSIDE GLUCOSE Collected: 08/23/2018 Status: F Source: [place] 3:[address] [facility] REPOSITORY TYPE CODE TESTS RESULT OUT OF REFERENCE UNITS RANGE LAB L501.080 70-110 mg/dL Low BEDSIDE GLU 55 Result Comment: MANAGEMENT OF PATIENT CARE PER NURSING PROTOCOL Performed By: #### L501.080 #### [facility] Laboratory Point of Care [address] [place] [address] BEDSIDE GLUCOSE Collected: 08/23/2018 Status: F Source: [place] 3:[address] [facility] REPOSITORY TYPE CODE TESTS RESULT OUT OF REFERENCE UNITS RANGE LAB L501.080 70-110 mg/dL High BEDSIDE GLU 145 Result Comment: MANAGEMENT OF PATIENT CARE PER NURSING PROTOCOL Performed By: #### L501.080 #### [facility] Point of Care [address] [place] [address] BEDSIDE GLUCOSE Collected: 08/23/2018 Status: F Source: [place] 2:[address] [facility] REPOSITORY TYPE CODE TESTS RESULT OUT OF RANGE REFERENCE UNITS LAB L501.080 70-110 mg/dL Normal BEDSIDE GLU 74 Result Comment: MANAGEMENT OF PATIENT CARE PER NURSING PROTOCOL Performed By: #### L501.080 #### [facility] Point of Care [address] [place] [address] FOOT 2 VIEWS Observed: 08/23/2018 Status: F Source: [place] 2:[address] [facility] REPOSITORY [facility] Imaging Services [address] [place] [address] Foot 2 Views MR#: [id number] Acct: [id number] Name: DIONY CARRILLO Rep #: [id number] : 1965 F 53 From: Carmelita Bettencourt MD PCP: Alessandro Eric MD Status: ADM IN Study: Foot 2 Views Date of Exam: 08/23/18 Exam# [id number] Ordering Dr: Sendy Allen DPM STUDY: X-RAY - LEFT FOOT CLINICAL: Female, 53 years old. Drainage abscess TECHNIQUE: 4 view(s) of the foot. COMPARISON: None. FINDINGS: 4 images were submitted, as radiology support for c-arm imaging in the operating room. This is not a diagnostic examination. Images for documentation purposes only. Fluoroscopy time if reported: 7 seconds RAD/Foot 2 Views IMPRESSION: Intraoperative fluoroscopic image guidance. Electronically Signed: Carmelita Bettencourt MD at 2:52 EST , Service support , CC: BRITTANIE Allen; Alessandro Eric MD Mobile Lounge Driver Or Operator: Signed CONSULTATION Observed: 08/23/2018 Status: F Source: [place] 12:[address] [facility] REPOSITORY [facility] Medical Records Department [address] [place] [address] Consultation 08/23/18 1227 MR#: [id number] Acct: [id number] Name: DIONY CARRILLO Rep #: [id number] : 1965 53 From: Kike Tello MD PCP: Alessandro Eric MD Status: ADM IN Y Location: [place] [address] Problem List (1) Diabetic foot ulcer associated with type 2 diabetes mellitus Status: Chronic Reason for Consult: foot infection Consulted by: Dr. Allen History of Present Illness: The patient is a 53 year old F with uncontrolled T2DM with peripheral neuropathy and recurrent foot ulcers who presented with L foot infected ulcer for about 2 weeks. L lateral foot with no trauma but ulcer with brown foul smelling drainage and pain. No fever or chills. Started on doxy a few days ago with no improvement. Some nausea. Came to hospital, MRI done, started on vanc, levaquin, flagyl. Surgery planned for today. Full ROS performed and neg except as noted above. - Medical History Past Medical History (Chronic Problems): Chronic Problems Back pain, chronic (Chronic) Hyponatremia (Chronic) Depression (Chronic) Diabetic foot ulcer associated with type 2 diabetes mellitus (Chronic) RLS (restless legs syndrome) (Chronic) Type II diabetes mellitus, uncontrolled (Chronic) Anxiety state (Chronic) Allergies/Adverse Reactions: Allergies oxycodone [Oxycodone] Allergy (Verified 08/17/18 14:04) Rash oxycodone HCl [From OxyContin] Allergy (Verified 08/17/18 14:04) Rash Penicillins Allergy (Verified 08/17/18 14:04) Shortness of breath Home Medications: Ambulatory Orders Medication Instructions Recorded Insulin Detemir [Levemir FlexPen] 30 units SC BREAKFAST 01/13/14 Ropinirole HCl [Requip] 3 mg PO BID 01/13/14 Insulin Aspart [Novolog Flexpen] 15 units SC TIDCM 01/27/15 - Social History SMOKING STATUS:: Never smoker Vital Signs Temp Pulse Resp BP Pulse Ox 98 F 82 16 111/58 L 97 08/23/18 09:41 08/23/18 09:41 08/23/18 09:41 08/23/18 09:41 08/23/18 09:41 Oxygen Delivery Method Room Air Weight: 80.649 kg Body Mass Index (BMI) 28.7 Microbiology Past 72 Hours 08/22/18 16:15 Gram Stain - Final Wound Abcess - Left Foot Wound Culture - Preliminary Laboratory Tests Past 24 Hrs WBC RBC Hgb Hct MCV MCH MCHC RDW RDW Differential Plt Count MPV Immature Gran % (Auto) WBC RBC Hgb Hct WBC 6.7 RBC 3.71 L Hgb 10.6 L Hct 32.6 L MCV 87.9 MCH 28.6 MCHC 32.5 RDW 13.5 RDW Differential 43.4 - Other Studies Radiology: [] reviewed Other Studies: [] Route of nutrition/ use of supplements: [] Nutritional Intake: [] IV Site: [] Tirado Catheter: [] - Physical Exam General: Alert, Oriented x3, Cooperative, No apparent distress HEENT: Atraumatic, PERRLA, EOMI Neck: Supple, No Nodes Lungs: Clear to auscultation, Normal air movement Cardiovascular: Regular rate, Regular Rhythm Abdomen: Soft, Non Tender, Non-Distended Extremities: No edema Skin: Ulcer/ Wound - feet wrapped IV Site: Peripheral, without redness Musculoskeletal: No Tenderness to Palpation of Joints or Extremities Neurological: Cranial nerves II-XII grossly intact, - - peripheral neuropathy - Assessment/Plan Antibiotics: [] Assessment/Plan: [] L foot infected ulcer with uncontrolled DM and neuropathy - recent cx with MSSA and GBS. Cx here with GPC so far. MRSA pcr neg. Will narrow abx to cefepime and flagyl. Has tolerated ceftriaxone in our system in the past. OR today for debridement. No osteo seen on MRI. Will follow, thank you, d/w Dr. Allen. 08/23/18 5397 <Electronically signed by Kike Tello MD> Date Kike Tello MD Cosigner Signature (if applicable): Date CC: BRITTANIE Allen; Annie Duran MD; Alessandro Eric MD; Kike Tello MD Signed BEDSIDE GLUCOSE Collected: 08/23/2018 Status: F Source: [place] 11:[address] [facility] REPOSITORY TYPE CODE TESTS RESULT OUT OF REFERENCE UNITS RANGE LAB L501.080 70-110 mg/dL High alert BEDSIDE GLU 470 Result Comment: MANAGEMENT OF PATIENT CARE PER NURSING PROTOCOL Performed By: #### L501.080 #### [facility] Point of Care [address] [place] [address] BEDSIDE GLUCOSE Collected: 08/23/2018 Status: F Source: [place] 6:[address] [facility] REPOSITORY TYPE CODE TESTS RESULT OUT OF REFERENCE UNITS RANGE LAB L501.080 70-110 mg/dL High BEDSIDE GLU 386 Result Comment: MANAGEMENT OF PATIENT CARE PER NURSING PROTOCOL Performed By: #### L501.080 #### [facility] Point of Care [address] [place] [address] CBC W/DIFF, AUTOMATED Collected: 08/23/2018 Status: F Source: [place] 6:[address] [facility] REPOSITORY TYPE CODE TESTS RESULT OUT OF RANGE REFERENCE UNITS LAB L100.1000 4.4-11.0 K/mm3 Normal WBC 6.7 LAB L100.1200 4.2-5.4 M/mm3 Low RBC 3.71 LAB L100.1300 12.0-15.0 g/dl Low HGB 10.6 LAB L100.1400 37-47 % Low HCT 32.6 LAB L100.1500 81-99 fL Normal MCV 87.9 LAB L100.1600 27.0-32.0 pg Normal MCH 28.6 LAB L100.1700 32-36 g/gl Normal MCHC 32.5 LAB L100.1810 11.6-14.6 % Normal RDW CV 13.5 LAB L100.1820 35.1-43.9 fl Normal RDW SD 43.4 LAB L100.1900 150-450 K/mm3 Normal PLT 312 LAB L100.2000 6.2-12.0 fl Normal MPV 10.5 LAB L100.2100 47-70 % Normal NEUT% 67.7 LAB L100.2200 19-41 % Normal LY% 23.0 LAB L100.2300 0-10 % Normal MONO% 6.5 LAB L100.2400 0-5 % Normal EO% 2.4 LAB L100.2500 0-1 % Normal BASO% 0.3 LAB L100.2550 0.0-0.9 % Normal IM GRAN % 0.100 Result Comment: IG% - Immature Granulocytes (promyelocytes, myelocytes and metamyelocytes) > 1% indicates that a LEFT SHIFT is Present. LAB L100.2620 2.0-7.7 X10 3/uL Normal Absolute Neut 4.6 LAB L100.2720 0.83-4.51 X10 3/ul Normal Absolute Lymph 1.55 Performed By: #### L100.0100 #### [facility] [address] [place], [place], [address] BASIC METABOLIC Collected: 08/23/2018 Status: F Source: [place] PROFILE (BMP) 6:[address] [facility] REPOSITORY TYPE CODE TESTS RESULT OUT OF RANGE REFERENCE UNITS LAB L501.0100 74-106 mg/dL High GLU 302 Result Comment: Glucose result greater than or equal to 200 mg/dL suggests DIABETES MELLITUS per A.D.A. criteria. Please note revised GLUCOSE reference range effective 2017. LAB L501.1000 7-18 mg/dL Normal BUN 15 LAB L501.1100 0.55-1.02 mg/dL Normal CREAT,SERUM 0.85 Result Comment: The validity of the calculated GFR AND GFRAA in patients over 70 years has not been determined. Clinical correlation is essential. LAB L501.1110 >60 mL/min Normal EST GFR 74 Result Comment: Non- GFR Calc LAB L501.1115 >60 mL/min Normal EST GFR - AA 90 Result Comment: GFR Calc LAB L501.1255 ml/min Normal Estimated CRCL 71.65 LAB L501.1300 10-20 RATIO Normal BUN/CRE 17.6 LAB L501.2200 8.5-10 mg/dL Normal .1 CA 8.5 LAB L501.5300 136-14 mmol/L Normal 5 NA 138 LAB L501.5600 3.5-5. mmol/L Normal 1 K 3.8 LAB L501.5900 98-107 mmol/L Normal CL 105 LAB L501.6100 21.0-3 mmol/L Normal 2.0 CO2 24.0 LAB L501.6200 5-15 Normal GAP 9 Performed By: #### L500.2500, L501.6710 #### [facility] [address] [place], [address] CRP Collected: 08/23/2018 Status: F Source: [place] 6:[address] [facility] REPOSITORY TYPE CODE TESTS RESULT OUT OF RANGE REFERENCE UNITS LAB L501.6710 0.0-3.0 mg/L High 100.00 C-REACTIVE PROT Result Comment: C-Reactive Protein (CRP) provides useful information for the diagnosis, therapy and monitoring of inflammatory processes and associated diseases. For the evaluation of Relative Risk for Cardiovascular Disease, a High Sensitivity CRP (HSCRP) should be ordered. Performed By: #### L500.2500, L501.6710 #### [facility] [address] [place], [address] BEDSIDE GLUCOSE Collected: 08/23/2018 Status: F Source: [place] 12:[address] [facility] REPOSITORY TYPE CODE TESTS RESULT OUT OF REFERENCE UNITS RANGE LAB L501.080 70-110 mg/dL High BEDSIDE GLU 264 Result Comment: MANAGEMENT OF PATIENT CARE PER NURSING PROTOCOL Performed By: #### L501.080 #### [facility] Point of Care [address] [place] [address] BONE (FX/NONFRACTURE) Observed: 08/23/2018 Status: F Source: [place] 12:[address] [facility] REPOSITORY Patient: DIONY CARRILLO : 1965 (53/F) Acct Num: [id number] Phys: Alessandro Perez DO Unit Num: [id number] Loc: [place]3 [id number] Specimen: [id number] Received: 08/23/181854 Spec Type: Bone TISSUES 1 TISSUES: Bone of foot, NOS GROSS DESCRIPTION Received in fixative is one container labeled with the patient's name and designated fifth metatarsal bone biopsy. The specimen consists of a cylindrical fragment of mahajan bone measuring 1 cm in length and 0.1 cm in average diameter. The specimen is submitted in its entirety in 1 cassette after decalcification. / AM:sp 08/24/18 TC:5 CPT: 98739, 79754 HEADER OPERATION: Incision, drainage diabetic foot ulcer with bone biopsy PRE-OP DIAGNOSIS: Diabetic foot infection with ulceration, left foot TISSUE SUBMITTED: 5th metatarsal bone biopsy, left foot MICROSCOPIC DESCRIPTION Slides are reviewed. MICROSCOPIC DIAGNOSIS Fifth metatarsal bone, left foot, core biopsy: A piece of bone with reactive changes, negative for acute osteomyelitis. SJ:aristides 08/30/18 Signed Luis Robledo 08/30/18 <signature on file> Performed By: #### PBON #### [facility] [address] [place], [address] BEDSIDE GLUCOSE Collected: 08/22/2018 Status: F Source: [place] 9:[address] [facility] REPOSITORY TYPE CODE TESTS RESULT OUT OF REFERENCE UNITS RANGE LAB L501.080 70-110 mg/dL High BEDSIDE GLU 326 Result Comment: MANAGEMENT OF PATIENT CARE PER NURSING PROTOCOL Performed By: #### L501.080 #### [facility] Point of Care [address] [place] [address] HISTORY AND PHYSICAL Observed: 08/22/2018 Status: F Source: [place] EXAM 6:[address] [facility] REPOSITORY [facility] Medical Records Department [address] [facility] [place] [address] History and Physical 08/22/18 1541 MR#: [id number] Acct: [id number] Name: DIONY CARRILLO Rep #: [id number] : 1965 53 From: Valencia Peterson EMBLEM DRAWER INMavisC PCP: Alessandro Eric MD Status: ADM IN Y Location: [place]3 [id number] <Valencia Peterson - Last Filed: 08/22/18 16:40> Problem List (1) Back pain, chronic Status: Chronic (2) Hyponatremia Status: Chronic (3) Depression Status: Chronic (4) Diabetic foot ulcer associated with type 2 diabetes mellitus Status: Chronic (5) RLS (restless legs syndrome) Status: Chronic (6) Type II diabetes mellitus, uncontrolled Status: Chronic (7) Anxiety state Status: Chronic History of Present Illness Date of Admission: 08/22/18 Chief Complaint: Left foot diabetic ulcer, left foot pain. The patient is a 53 year old F who presents from podiatry office due to left foot diabetic ulcer. She follows with Dr. Allen. She was placed on doxycycline 08/18/18 following emergency room visit due to bilateral foot pain. Patient has diabetic ulcers bilateral lateral plantar aspect of feet. X-ray of the right foot 08/17/18 shows status post amputation of the mid and distal portion of the fifth metatarsal and fifth toe. Irregular density of the distal row of the tarsal joints as well as a tarsal metatarsal joint suggestive of charcot's deformity. Wound cx 08/17/18 positive for group B strep per podiatry office. Patient states she was to have surgery on the right foot when her left foot started to have swelling with pain 2 weeks ago. 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 She denies fever, chills. Denies GI/ complaints. Complains of significant left foot pain. She reports her diabetes is poorly controlled due to noncompliance with diet. Her past medical history includes type 2 diabetes mellitus, restless leg syndrome, depression, anxiety, chronic back pain, hyperlipidemia. Past Medical History Past Medical History (Chronic Problems): Chronic Problems Back pain, chronic (Chronic) Hyponatremia (Chronic) Depression (Chronic) Diabetic foot ulcer associated with type 2 diabetes mellitus (Chronic) RLS (restless legs syndrome) (Chronic) Type II diabetes mellitus, uncontrolled (Chronic) Anxiety state (Chronic) Allergies oxycodone [Oxycodone] Allergy (Verified 08/17/18 14:04) Rash oxycodone HCl [From OxyContin] Allergy (Verified 08/17/18 14:04) Rash Penicillins Allergy (Verified 08/17/18 14:04) Shortness of breath Home Medications: Ambulatory Orders Medication Instructions Recorded Insulin Detemir [Levemir FlexPen] 30 units SC BREAKFAST 01/13/14 Ropinirole HCl [Requip] 3 mg PO BID 01/13/14 Insulin Aspart [Novolog Flexpen] 15 units SC TIDCM 01/27/15 Surgical History: - - status post I AND D of R foot 5th metatarsal abscess, 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 Bilateral carpal tunnel surgery 1994, right shoulder surgery in 1994, section x2. Psychiatric History: Anxiety, Depression BEHAVIORAL THERAPIST History: No pertinent BEHAVIORAL THERAPIST history Lives: Spouse/ Significant Other Smoking Status: Never smoker Alcohol: None Drugs: None - *Family History Maternal History Items: Diabetes, Hypertension, - - Her mother at the age of 67 to a blood clot to the brain. She had had multiple strokes preceding that. Paternal History Items: - - Patient states her father when she was 5 years old, denies known medical history, denies known cardiac history. Sibling History Items: - - She has one brother who is secondary to cancer and she does not know what kind of cancer he had. She also has 3 brothers with a history of cardiovascular disease, stents and coronary artery bypass grafting. Review of Systems Constitutional: Denies: Chills, Fever, Weight Change HEENT: Denies: Head Aches, Sinus Congestion, Sinus Drainage Cardiovascular: Denies: Chest Pain, Light Headedness, Palpitations, Syncope Respiratory: Denies: Cough, Shortness of breath at rest, Sputum production Gastrointestinal: Reports: Nausea - attributed to oral antibiotic. Denies: Abdominal Pain, Vomiting Genitourinary: Denies: Dysuria Musculoskeletal: Reports: - - Left foot pain. Denies: Joint Pain, Joint Tenderness Skin: Reports: Wounds - bilateral foot diabetic ulcers Neurological: Reports: - - Chronic diabetic neuropathy. Denies: Focal weakness, Numbness, Tingling Psychiatric: Reports: Anxiety, Depression Hematologic/ Lymphatic: Denies: Easy Bruising, Easy Bleeding VTE Information - Inpt Only VTE Present on Admission: No VTE Mechan Device Prophylaxis: None VTE Pharm Prophylaxis ordered?: Yes - Physical Exam General: Alert, Oriented x3, Cooperative, No apparent distress HEENT: Atraumatic, PERRLA, EOMI, Normocephalic Neck: Supple, No JVD, Negative Carotid Bruits Lungs: Clear to auscultation, Normal air movement Cardiovascular: Regular rate, Regular Rhythm, Normal S1, Normal S2, No murmurs Abdomen: Bowel Sounds Present, Soft, Non Tender, Non-Distended Extremities: No clubbing, No cyanosis, No edema Skin: - - Diabetic ulcer bilateral lateral plantar aspect of feet. Left foot with mild serosanguineous drainage. No foul odor. Left foot generalized erythema and warmth. Musculoskeletal: No Tenderness to Palpation of Joints or Extremities, - - Bilateral charcot foot deformity. Neurological: Cranial nerves II-XII grossly intact, Neuro grossly intact Psych/Mental Status: Normal Affect, Appropriate Assessment/Plan All Active Problems Hepatitis B (Resolved) 1. Left foot diabetic ulcer with cellulitis-Failed outpatient antibiotic therapy with doxy. Following with podiatry, Dr. Allen. X-ray of the right foot 08/17/18 shows status post amputation of the mid and distal portion of the fifth metatarsal and fifth toe. Irregular density of the distal row of the tarsal joints as well as a tarsal metatarsal joint suggestive of charcot's deformity. ID consult. Obtain MRI LLE. Wound cx 08/17/18 positive for group B strep. IV flagyl, IV levaquin and IV vancomycin. oxyir PRN for pain. PT/OT. Wound RN consult. Repeat wound culture. 2. Type 2 diabetes mellitus, poorly controlled, associated diabetic neuropathy-most recent hemoglobin A1c 12.8%. Accu-Cheks before meals at bedtime with sliding scale insulin. Continue home Levemir regimen. Repeat hemoglobin A1c. 3. Chronic back pain-PT/OT. PRN pain regimen. Continue gabapentin regimen. 4. Restless leg syndrome-continue Requip regimen. 5. Hyperlipidemia-continue statin. 6. Depression/anxiety-no longer on regimen. DVT prophylaxis- SCDs. This patient was seen by BRIAN Mathews under the supervision of Dr. Humphries. <Annie Duran - Last Filed: 08/22/18 18:11> History of Present Illness The patient is a 53 year old F [] Past Medical History Allergies oxycodone [Oxycodone] Allergy (Verified 08/17/18 14:04) Rash oxycodone HCl [From OxyContin] Allergy (Verified 08/17/18 14:04) Rash Penicillins Allergy (Verified 08/17/18 14:04) Shortness of breath - Physical Exam Vital Signs Temp Pulse Resp BP Pulse Ox 98.4 F 90 18 140/68 H 98 08/22/18 16:36 08/22/18 16:36 08/22/18 16:36 08/22/18 16:36 08/22/18 16:36 Oxygen Delivery Method Room Air Weight: 80.649 kg Body Mass Index (BMI) 28.7 Intake and Output for Last 24 Hours Intake Total 550 / 550 Output Total 250 / 250 Balance 300 / 300 Laboratory Tests Past 24 Hrs ESR ESR 123 H PT 13.8 INR 1.1 Sodium Potassium Chloride Carbon Dioxide Anion Gap POC Glucose POC Glucose 383 H Assessment/Plan This patient was seen in conjunction with Valencia Peterson NP. I have independently interviewed and examined the patient and reviewed pertinent historical, laboratory, and other data. Please refer to her note for patient's presentation, findings, and recommendations. 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 Patient has history of bilateral ray amputations done 3/4 years ago. She admits to being noncompliant with her diet. Her last HbA1c was reported 12.8 more than 3 months ago. She has been following up with a digging machine operator for chronic nonhealing ulcers. She is being sent here with concern for possible osteomyelitis. PMHx: Type II DM complicated by peripheral neuropathy, chronic bilateral feet ulcers, anxiety/depression, restless leg, chronic pain syndrome/peripheral neuropathy PSHx: Status post section, hysterectomy, bilateral re-amputations, right shoulder surgery FHX: Diabetes in mother, hypertension, strokes, history of heart disease in her brothers SHx: Denies any use of alcohol, or smoking. Denies use of illicit drugs Physical Exam: Vitals: Temperature of 98.4F, heart rate 90, blood pressure 140/68, respiratory rate 18, SPO2 90% on room air Gen: Comfortable, not pale, not jaundiced, alert oriented x3 CVS:HS I +II, regular, no murmurs RESP: Clinically clear to auscultation GI: BS present, soft, nontender, no palpable organs EXT: Bilateral chronic plantar ulcers, Charcot foot, status post biulateral rayamputation with scars, mild differential warmth of the left foot, with mild erythema ASSESSMENT: 1. Left diabetic infected foot ulcer with cellulitis 2. Bilateral chronic diabetic foot ulcers 3. Type II DM with peripheral neuropathy 4. Hypertension 5. Anxiety/depression 6. Restless leg syndrome 7. Penicillin allergy Penicillin allergy Meds reviewed Plan: ID, podiatry consult MRI of the left foot IV Levaquin, Flagyl, vancomycin Local wound care and further management per Podiatry Blood sugar control Pain control Continue home meds Code Visit Inpatient E AND M: [id number] Init Hosp L3 08/22/18 1640 <Electronically signed by Valencia RUDOLPHC> Date Valencia RUDOLPHC 08/22/18 1811<Electronically signed by Annie Duran MD> Cosigner Signature: Date (if applicable) Annie Duran MD CC: EMBLEM DRAWER IN-C Valencia Peterson; Annie Duran MD; Alessandro Eric MD Signed ERYTHROCYTE SED RATE Collected: 08/22/2018 Status: F Source: [place] 4:[address] [facility] REPOSITORY TYPE CODE TESTS RESULT OUT OF RANGE REFERENCE UNITS LAB L102.0000 0-30 mm/hr High SED RATE 123 Performed By: #### L101.9900 #### [facility] [address] [place], [address] PROTHROMBIN TIME W/INR Collected: 08/22/2018 Status: F Source: [place] 4:[address] [facility] REPOSITORY TYPE CODE TESTS RESULT OUT OF RANGE REFERENCE UNITS LAB L300.4150 11.7-14.9 SECONDS Normal PROTIME 13.8 LAB L300.4200 Normal INR 1.1 Performed By: #### L300.3900 #### [facility] Laboratory [address] [place], [address] COMPREHENSIVE METABOLIC Collected: 08/22/2018 Status: F Source: [facility] 4:[address] [facility] REPOSITORY TYPE CODE TESTS RESULT OUT OF RANGE REFERENCE UNITS LAB L501.0100 74-106 mg/dL High GLU 353 Result Comment: Glucose result greater than or equal to 200 mg/dL suggests DIABETES MELLITUS per A.D.A. criteria. Please note revised GLUCOSE reference range effective 2017. LAB L501.1000 7-18 mg/dL Normal BUN 17 LAB L501.1100 0.55-1.02 mg/dL Normal CREAT,SERUM 0.96 Result Comment: The validity of the calculated GFR AND GFRAA in patients over 70 years has not been determined. Clinical correlation is essential. LAB L501.1110 >60 mL/min Normal EST GFR 65 Result Comment: Non- GFR Calc LAB L501.1115 >60 mL/min Normal EST GFR - AA 78 Result Comment: GFR Calc LAB L501.1255 ml/min Normal Estimated CRCL 63.44 LAB L501.1300 10-20 RATIO Normal BUN/CRE 17.7 LAB L501.1500 6.4-8. g/dL Normal 2 T PROT 7.7 LAB L501.1800 3.2-5. g/dL Low 0 ALB 3.0 LAB L501.1950 2.2-4. g/dL High 2 GLOB 4.7 LAB L501.2000 0.9-2. RATIO Low 4 A/G 0.6 LAB L501.2200 8.5-10 mg/dL Normal .1 CA 8.9 LAB L501.4100 15-37 U/L Low AST 6 LAB L501.4305 45-117 U/L Normal ALK P 111 LAB L501.4405 13-56 U/L Normal ALT 16 LAB L501.4600 0.20-1 mg/dL Normal .00 T BILI 0.40 LAB L501.5300 136-14 mmol/L Normal 5 NA 136 LAB L501.5600 3.5-5. mmol/L Normal 1 K 4.0 LAB L501.5900 98-107 mmol/L Normal CL 101 LAB L501.6100 21.0-3 mmol/L Normal 2.0 CO2 25.0 LAB L501.6200 5-15 Normal GAP 10 Performed By: #### L500.4050 #### [facility] Laboratory [address] [place], [address] HEMOGLOBIN A1C Collected: 08/22/2018 Status: F Source: [place] 4:[address] [facility] REPOSITORY TYPE CODE TESTS RESULT OUT OF RANGE REFERENCE UNITS LAB L501.9985 4.2-6.3 % High HGB A1C 12.0 Performed By: #### L501.9985 #### [facility] Laboratory [address] [place], [address] CRP Collected: 08/22/2018 Status: F Source: [place] 4:[address] [facility] REPOSITORY TYPE CODE TESTS RESULT OUT OF RANGE REFERENCE UNITS LAB L501.6710 0.0-3.0 mg/L High 115.00 C-REACTIVE PROT Result Comment: C-Reactive Protein (CRP) provides useful information for the diagnosis, therapy and monitoring of inflammatory processes and associated diseases. For the evaluation of Relative Risk for Cardiovascular Disease, a High Sensitivity CRP (HSCRP) should be ordered. Performed By: #### L501.6710 #### [facility] [address] [place], [address] LOWER EXT NO JOINT Observed: 08/22/2018 Status: F Source: [place] W/WO CONT 4:[address] [facility] REPOSITORY [facility] Imaging Services [address] [place] [address] Lower Ext No Joint W/WO Cont MR#: [id number] Acct: [id number] Name: DIONY CARRILLO Rep #: [id number] : 1965 F 53 From: Saqib Roberts MD PCP: Jeaneth DELVALLE,Alessandro Status: ADM IN Study: Lower Ext No Joint W/WO Cont Date of Exam: 08/22/18 Exam# [id number] Ordering Dr: Annie Duran MD STUDY: MRI LEFT MIDFOOT WITH AND WITHOUT CONTRAST REASON FOR EXAM: Left lateral foot wound, diabetic ulcer for 2 weeks. TECHNIQUE: Standardized fat and water weighted pulse sequences were obtained in all 3 orthogonal planes before and after intravenous administration of 9 mL of Gadavist. COMPARISON: Radiographs 08/17/2018 and MRI images 01/27/2015. FINDINGS: Normal talonavicular articulation. Normal calcaneocuboid articulation. There is arthropathy of the navicular-cuneiform articulations with chondral thinning and mild subchondral bone edema (inversion recovery sagittal images 8-15). Normal intercuneiform articulations. Normal first tarsometatarsal articulation. Normal Lisfranc ligament. There is arthropathy of the second through fifth tarsometatarsal joints with chondral thinning and mild subchondral bone edema adjacent to the second tarsometatarsal joint (inversion recovery sagittal images 12, 13) and third tarsometatarsal joint (inversion recovery sagittal images 15, 16), and mild subchondral cystic change/slight bone edema adjacent to the fourth and fifth tarsometatarsal joints (inversion recovery sagittal images 18, 19). There is amputation of the fifth metatarsal at the level of the proximal diaphysis without demonstrated recurrent osteomyelitis. Normal tibialis anterior tendon. Normal extensor hallucis longus tendon. Normal extensor digitorum longus tendons. Normal peroneus longus tendon and distal insertion. Normal peroneus brevis tendon and distal insertion. There is atrophy with partial fat replacement of the intrinsic muscles of the foot (T1 sagittal images 7-17) suggestive of peripheral neuropathy. There is also contrast enhancement of the flexor digitorum brevis and abductor digiti minimi muscles (postcontrast T1 sagittal images 9-16) suggestive of myositis. There is edema in the subcutis adipose space particularly at the lateral aspect of the foot with contrast enhancement (postcontrast T1 series 9 images 15-27) consistent with cellulitis. There is no demonstrated soft tissue abscess. There is callus at the plantar aspect of the fifth metatarsal (T1 sagittal images 16-18). There is a small ganglion cyst dorsal to the medial aspect of the navicular-cuneiform articulations (inversion recovery sagittal images 7-9) measuring 0.9 cm in length. MRI/Lower Ext No Joint W/WO Cont IMPRESSION: Cellulitis without demonstrated soft tissue abscess. Arthropathy of the navicular-cuneiform and second through fifth tarsometatarsal joints suggestive of neuropathic osteoarthropathy. Myositis of the flexor digitorum brevis and abductor digiti minimi muscles. Atrophy of the intrinsic muscles of the foot suggestive of peripheral neuropathy. Amputation of the fifth digit at the level of the proximal metatarsal diaphysis without demonstrated recurrent osteomyelitis. Electronically Signed: Saqib Roberts MD at 7:55 EST Tel , Service support , CC: Annie Duran MD; Alessandro Eric MD Mobile Lounge Driver Or Operator: Signed BEDSIDE GLUCOSE Collected: 08/22/2018 Status: F Source: [facility] 4:[address] [facility] REPOSITORY TYPE CODE TESTS RESULT OUT OF REFERENCE UNITS RANGE LAB L501.080 70-110 mg/dL High BEDSIDE GLU 383 Result Comment: MANAGEMENT OF PATIENT CARE PER NURSING PROTOCOL Performed By: #### L501.080 #### [facility] Laboratory Point of Care [address] [place] [address] MRSA WOUND DNA BY Collected: 08/22/2018 Status: F Source: [facility] PCR 4:[address] [facility] REPOSITORY Order Comment: Order Date: 08/22/18 TYPE CODE TESTS RESULT OUT OF RANGE REFERENCE UNITS LAB L8200.1100 Negative Normal MRSA Negative RESULT LAB L8200.1150 Negative High SA RESULT POSITIVE Performed By: #### L8200.1075 #### [facility] [address] [place], [address] Observed: 08/22/2018 Status: F Source: [place] CULTURE, DEEP WOUND 4:[address] [facility] REPOSITORY Order Date: 08/22/18 Has pt arrived? Y Gram Stain Gram Stain No White Blood Cells No organisms seen Wound Culture ORGANISM 1: Staphylococcus aureus Amount Growth 2+ ORGANISM 2: Streptococcus agalactiae (B) Amount Growth 2+ Staphylococcus aureus: REACTION Benzylpenicillin NF >=0.5 R Cefoxitin *NF - Clindamycin $$ <=0.25 S Inducable Clindamycin Resistan - Erythromycin $ <=0.25 S Gentamicin $ <=0.5 S Levofloxacin $ 0.25 S Linezolid $$$$ 2 S Moxifloxicin *NF <=0.25 S Oxacillin NF 0.5 S Tigecycline $$$$ <=0.12 S Rifampin $$ <=0.5 S Tetracycline NF >=16 R Trimethoprim/Sulfametho $ <=10 S Vancomycin $ 1 S (NF) indicates non-formulary drug at [facility]. Approval by Infectious Disease Specialist required before non-formulary drugs may be ordered and/or dispensed. * CLSI guidelines does not recommend testing of cephalosporins. This interpretation is deduced from Beta-lactam/penicillin results. Streptococcus agalactiae (B): REACTION Ampicillin $ <=0.25 S Benzylpenicillin NF <=0.06 S Ceftriaxone $ <=0.12 S Clindamycin $$ >=1 R Inducable Clindamycin Resistan - Linezolid $$$$ <=2 S Vancomycin $ 0.5 S (NF) indicates non-formulary drug at [facility]. Approval by Infectious Disease Specialist required before non-formulary drugs may be ordered and/or dispensed. * CLSI guidelines does not recommend testing of cephalosporins. This interpretation is deduced from Beta-lactam/penicillin results. Cult, Anaerobic No anaerobic bacteria isolated. Performed By: #### M100.1500 #### [facility] Laboratory [facility] [place], [address] PROGRESS Observed: 08/22/2018 Status: COMPLETED Source: [place] 3:03 PM [facility] REPOSITORY O ID: [id number] Author: Cecy Carbajal RN Service: (none) Author Type: (none) Type: Progress Notes Filed: 08/22/2018 3:05 PM Note Text: Aquacel Ag applied to ulcer of R plantar foot. Covered with sterile 4x4 and secured with alison. MYLA wrap applied to R foot and ankle per patient request. Wet to dry dressing applied to ulcer of L plantar foot. MYLA wrap applied to L foot and ankle per patient request. PROGRESS Observed: 08/22/2018 Status: COMPLETED Source: [place] 2:44 PM [facility] [place] REPOSITORY HNO ID: [id number] Author: Sendy Allen Service: (none) Author Type: Physician Type: Progress Notes Filed: 08/22/2018 3:05 PM Note Text: Follow up podiatric office visit for: Chief Complaint: This 53 year old who presents for follow up:b/l foot ulceration. Patient is currently taking doxycycline and using b/l boot with peg assisted offloading. She states over the past two days, she has lost her appetitie. She now is having more pain to her left foot. She has no issues with right foot. PAIN EVALUATION 08/22/2018 Pain Score: 5 Pain Location: Foot-Left Description: Aching Duration Units: Unknown Frequency: Intermittent Intervention: Relaxation;Reposition Hemoglobin A1C Date Value Ref Range Status 08/02/2018 12.2 (H) 4.3 - 5.6 % Final PCP: Alessandro Eric MD PAST MEDICAL HISTORY Diagnosis Date - Chronic depressive personality disorder - Degenerative disc disease - Diabetes mellitus without mention of complication Diabetes mellitus - Fallen arches (Broken) on both sides - Polyneuropathy in diabetes(357.2) - Restless legs syndrome (RLS) Current Outpatient Prescriptions: insulin aspart U-100 (NOVOLOG FLEXPEN U-100 INSULIN) 100 unit/mL inpn Inject 15 Units subcutaneously three times daily with meals. insulin detemir U-100 (LEVEMIR FLEXPEN) 100 unit/mL (3 mL) inpn injection Inject 30 Units subcutaneously daily before breakfast. Blood-Glucose Meter (ACCU-CHEK MEGAN CONNECT METER) misc 1 Units as directed. Dx: E11.40 rOPINIRole Hydrochloride 3 mg tablet Take 1 tablet by mouth twice daily. magnesium oxide (MAG-OX) 400 mg tablet Take 1 tablet by mouth twice daily. acetaminophen-codeine (TYLENOL-COD #3) 300-30 mg per tablet omeprazole (PRILOSEC) 20 mg capsule Take 1 capsule by mouth daily before breakfast. 1/2 hr before meal. rosuvastatin (CRESTOR) 40 mg tablet Take 1 tablet by mouth once daily. insulin needles, DISPOSABLE, (PEN NEEDLE) 31 gauge x 5/16 ndle Use as directed four times daily ergocalciferol, vitamin D2, (DRISDOL) 50,000 unit capsule Take 1 capsule by mouth once each week. Alpha Lipoic Acid 600 mg cap Take 600 mg by mouth once daily. ascorbic acid, vitamin C, (VITAMIN C) 500 mg tablet Take 1 tablet by mouth twice daily. Take with iron (ferrous sulfate). blood sugar diagnostic (ACCU-CHEK MEGAN) test strip Test blood sugar(s) 3-4 times daily. Dx: Type 1 DM - Uncontrolled E 10.65 Insulin: Yes blood sugar diagnostic (ACCU-CHEK MEGAN PLUS TEST STRP) test strip Check blood sugar readings 2-3 times daily and as needed. Insulin dependent. Dx: E11.40 Lancets (ACCU-CHEK MULTICLIX LANCET) lancets Check blood sugar readings 2-3 times daily. Insulin dependent. Dx: E11.40 Blood-Glucose Meter (BLOOD GLUCOSE MONITORING) monitoring kit 1 Each as needed. Lancets lancets Test 2-3 times a day gabapentin (NEURONTIN) 800 mg tablet Take 1 tablet by mouth three times daily for 30 days. doxycycline monohydrate (MONODOX) 100 mg capsule Take 1 capsule by mouth twice daily. No current facility-administered medications for this visit. ALLERGIES Allergen Reactions - Oxycontin [Oxycodon* itch - Penicillins Hives - Requip [Ropinirole] Intolerance Vomiting, panic attacks, itching PAST SURGICAL HISTORY Procedure Laterality Date - DELIVERY ONLY , low cervical - EGD W/O OR W/BRUSH/WASH 05/10/2012 EGD - LIGATE FALLOPIAN TUBE Tubal ligation - PAST SURGICAL HISTORY OF removal right 5th metatarsal - PICC LINE INSERT/CONSULT 06/14/2014 - REPAIR ROTATOR CUFF,ACUTE 1996 Rotator cuf repair right, Dr Alvarado - [facility] N/CARPAL TUNNEL SURG 1996 Carpal tunnel decomp, right, Dr Alvarado - [facility] N/CARPAL TUNNEL SURG 2009 Carpal tunnel decomp, LEFT Physical Exam: Constitutional: Pt is a well developed 53 year old female who is alert, oriented, cooperative and in no apparent distress. OBJECTIVE: NVSI unchanged from previous visit. Dermatological: There is full thickness ulceration of left foot that measures 0.6 cm in diameter. The lateral extension of left foot ulceration does have evidence of epithelial separation. This is concerning for abscess vs blistering vs worsening of ulceration. No alvarado purulence is expression with probing of wound. There is minimal erythema present to left foot. The right foot has ulceration that measures 0.5 cm in diameter. No signs of infection to right foot. Musculoskeletal/Orthopaedic: Patient has pain to palpation of left foot xrays of b/l foot reviewed. There is no evidence of osteomyelitis on xray. There is hypertrophic bone formation of b/l fifth metatarsal ASSESSMENT: (E11.621, L97.422) Diabetic ulcer of left midfoot associated with type 2 diabetes mellitus, with fat layer exposed (HCC) (primary encounter diagnosis) (E11.621, L97.412) Diabetic ulcer of right midfoot associated with type 2 diabetes mellitus, with fat layer exposed ([facility]) Specimen Request (Final) CCM Swab Smear Result (Abnormal) (Final) CCM Few Gram positive cocci in pairs and chains Smear Result (Final) CCM Rare Polymorphonuclear leukocytes Culture (Abnormal) (Final) [facility] Moderate Streptococcus agalactiae (Group B streptococcus) Susceptibility testing not performed on beta hemolytic streptococci due to predictable susceptibility to penicillin and other beta lactams. For testing, call ?Microbiology within 72 hours. Culture (Abnormal) (Final) [facility] Moderate Staphylococcus aureus Culture (Final) CCM Rare skin lee ann Culture AND Susceptibility Antibiotic Organism Organism Organism Organism Staphylococcus aureus CLINDAMYCIN ?0.25 ? S Final DOXYCYCLINE ?4 ? S Final ERYTHROMYCIN ?<=0.25 ? S Final GENTAMICIN ?<=0.5 ? S Final OXACILLIN ?0.5 ? S Final RIFAMPIN ?<=0.5 ? S Final TETRACYCLINE ?>=16 ? R Final TRIMETH SULFAMETH ?<=10 ? S Final VANCOMYCIN ?<=0.5 ? S Final PLAN: 1. Patient left foot shows concern for worsening ulceration with lateral extension vs blistering vs concern for abscess. Today at bedside under sterile technique, I examined and probed the ulceration. No evidence of alvarado purulence was encountered . There does appear to be lateral extension of plantar foot ulceration. This is concerning for worsening ulceration vs abscess. Today, recommend hospitalization for mri and further treatment. I discussed treatment going forward. If mri suggests abscess/osteomyelitis, I believe 5th ray resection will be necessary. Certainly this places her at risk of developing an equinovarus deformity. She does have afo ordered so if she were to develop this deformity, I believe she will be fine. If mri shows no abscess, will plan for wound debridement and wound vac application with possible bone biopsy. Either way, I believe patient is looking at extended duration with wound vac therapy. Patient will be admitted to [facility]. Will start her on IV antibiotics. Will get mri. Possible surgery tomorrow pending mri. Will consult ID. Patient is at great risk of lower leg amputation. Patient will greatly benefit from nutrition consult. Her diabetes is very poorly controlled. Sendy Allen DPM CNOV Observed: 08/22/2018 Status: COMPLETED Source: [place] 1:45 PM [facility] REPOSITORY Office Visit (PODIWS) DIONY CARRILLO ([id number]) 1965 F Date Time Provider Department 08/22/18 1:45 PM SENDY ALLEN PODIWS During your visit today, we recorded the following information about you: Cecy Carbajal RN 08/22/2018 3:05 PM Signed AMB ROOMING INTAKE FLOWSHEET DATA Risk Screening Do you have concerns about personal safety or safety in the home?: No Pain Pain Score: 5/10 Pain Location: Foot-Left Description: Aching Duration Units: Unknown Frequency: Intermittent Intervention: Relaxation, Reposition Patient presents to f/u on ulcers of bilateral feet. She presents to clinic fully WB, wearing boot on both feet. She states she got a wheelchair and uses it at home. She continues to apply Aquacel to both feet daily. She continues to take doxycycline. She reports that she has been unable to eat the past 2 days and has vomitted twice. She is not sure if vomitting is caused by doxycycline, she states she has taken it in the past without problems. Sendy Allen DPM 08/22/2018 3:05 PM Signed Follow up podiatric office visit for: Chief Complaint: This 53 year old who presents for follow up:b/l foot ulceration. Patient is currently taking doxycycline and using b/l boot with peg assisted offloading. She states over the past two days, she has lost her appetitie. She now is having more pain to her left foot. She has no issues with right foot. PAIN EVALUATION 08/22/2018 Pain Score: 5 Pain Location: Foot-Left Description: Aching Duration Units: Unknown Frequency: Intermittent Intervention: Relaxation;Reposition Hemoglobin A1C Date Value Ref Range Status 08/02/2018 12.2 (H) 4.3 - 5.6 % Final PCP: Alessandro Eric MD PAST MEDICAL HISTORY Diagnosis Date - Chronic depressive personality disorder - Degenerative disc disease - Diabetes mellitus without mention of complication Diabetes mellitus - Fallen arches (Broken) on both sides - Polyneuropathy in diabetes(357.2) - Restless legs syndrome (RLS) Current Outpatient Prescriptions: insulin aspart U-100 (NOVOLOG FLEXPEN U-100 INSULIN) 100 unit/mL inpn Inject 15 Units subcutaneously three times daily with meals. insulin detemir U-100 (LEVEMIR FLEXPEN) 100 unit/mL (3 mL) inpn injection Inject 30 Units subcutaneously daily before breakfast. Blood-Glucose Meter (ACCU-CHEK MEGAN CONNECT METER) misc 1 Units as directed. Dx: E11.40 rOPINIRole Hydrochloride 3 mg tablet Take 1 tablet by mouth twice daily. magnesium oxide (MAG-OX) 400 mg tablet Take 1 tablet by mouth twice daily. acetaminophen-codeine (TYLENOL-COD #3) 300-30 mg per tablet omeprazole (PRILOSEC) 20 mg capsule Take 1 capsule by mouth daily before breakfast. 1/2 hr before meal. rosuvastatin (CRESTOR) 40 mg tablet Take 1 tablet by mouth once daily. insulin needles, DISPOSABLE, (PEN NEEDLE) 31 gauge x 5/16 ndle Use as directed four times daily ergocalciferol, vitamin D2, (DRISDOL) 50,000 unit capsule Take 1 capsule by mouth once each week. Alpha Lipoic Acid 600 mg cap Take 600 mg by mouth once daily. ascorbic acid, vitamin C, (VITAMIN C) 500 mg tablet Take 1 tablet by mouth twice daily. Take with iron (ferrous sulfate). blood sugar diagnostic (ACCU-CHEK MEGAN) test strip Test blood sugar(s) 3-4 times daily. Dx: Type 1 DM - Uncontrolled E 10.65 Insulin: Yes blood sugar diagnostic (ACCU-CHEK MEGAN PLUS TEST STRP) test strip Check blood sugar readings 2-3 times daily and as needed. Insulin dependent. Dx: E11.40 Lancets (ACCU-CHEK MULTICLIX LANCET) lancets Check blood sugar readings 2-3 times daily. Insulin dependent. Dx: E11.40 Blood-Glucose Meter (BLOOD GLUCOSE MONITORING) monitoring kit 1 Each as needed. Lancets lancets Test 2-3 times a day gabapentin (NEURONTIN) 800 mg tablet Take 1 tablet by mouth three times daily for 30 days. doxycycline monohydrate (MONODOX) 100 mg capsule Take 1 capsule by mouth twice daily. No current facility-administered medications for this visit. ALLERGIES Allergen Reactions - Oxycontin [Oxycodon* itch - Penicillins Hives - Requip [Ropinirole] Intolerance Vomiting, panic attacks, itching PAST SURGICAL HISTORY Procedure Laterality Date - DELIVERY ONLY , low cervical - EGD W/O OR W/BRUSH/WASH 05/10/2012 EGD - LIGATE FALLOPIAN TUBE Tubal ligation - PAST SURGICAL HISTORY OF removal right 5th metatarsal - PICC LINE INSERT/CONSULT 06/14/2014 - REPAIR ROTATOR CUFF,ACUTE 1996 Rotator cuf repair right, Dr Alvarado - [facility] N/CARPAL TUNNEL SURG 1996 Carpal tunnel decomp, right, Dr Alvarado - [facility]/CARPAL TUNN[facility] SUR[facility] 2008 Carpal tunnel decomp, LEFT Physical Exam: Constitutional: Pt is a well developed 53 year old female who is alert, oriented, cooperative and in no apparent distress. OBJECTIVE: NVSI unchanged from previous visit. Dermatological: There is full thickness ulceration of left foot that measures 0.6 cm in diameter. The lateral extension of left foot ulceration does have evidence of epithelial separation. This is concerning for abscess vs blistering vs worsening of ulceration. No alvarado purulence is expression with probing of wound. There is minimal erythema present to left foot. The right foot has ulceration that measures 0.5 cm in diameter. No signs of infection to right foot. Musculoskeletal/Orthopaedic: Patient has pain to palpation of left foot xrays of b/l foot reviewed. There is no evidence of osteomyelitis on xray. There is hypertrophic bone formation of b/l fifth metatarsal ASSESSMENT: (E11.621, L97.422) Diabetic ulcer of left midfoot associated with type 2 diabetes mellitus, with fat layer exposed (HCC) (primary encounter diagnosis) (E11.621, L97.412) Diabetic ulcer of right midfoot associated with type 2 diabetes mellitus, with fat layer exposed (HCC) Specimen Request (Final) [facility] Swab Smear Result (Abnormal) (Final) [facility] Few Gram positive cocci in pairs and chains Smear Result (Final) [facility]CM Rare Polymorphonuclear leukocytes Culture (Abnormal) (Final) [facility] Moderate Streptococcus agalactiae (Group B streptococcus) Susceptibility testing not performed on beta hemolytic streptococci due to predictable susceptibility to penicillin and other beta lactams. For testing, call ?Microbiology within 72 hours. Culture (Abnormal) (Final) [facility]CM Moderate Staphylococcus aureus Culture (Final) CCM Rare skin lee ann Culture AND Susceptibility Antibiotic Organism Organism Organism Organism Staphylococcus aureus CLINDAMYCIN ?0.25 ? S Final DOXYCYCLINE ?4 ? S Final ERYTHROMYCIN ?<=0.25 ? S Final GENTAMICIN ?<=0.5 ? S Final OXACILLIN ?0.5 ? S Final RIFAMPIN ?<=0.5 ? S Final TETRACYCLINE ?>=16 ? R Final TRIMETH SULFAMETH ?<=10 ? S Final VANCOMYCIN ?<=0.5 ? S Final PLAN: 1. Patient left foot shows concern for worsening ulceration with lateral extension vs blistering vs concern for abscess. Today at bedside under sterile technique, I examined and probed the ulceration. No evidence of alvarado purulence was encountered . There does appear to be lateral extension of plantar foot ulceration. This is concerning for worsening ulceration vs abscess. Today, recommend hospitalization for mri and further treatment. I discussed treatment going forward. If mri suggests abscess/osteomyelitis, I believe 5th ray resection will be necessary. Certainly this places her at risk of developing an equinovarus deformity. She does have afo ordered so if she were to develop this deformity, I believe she will be fine. If mri shows no abscess, will plan for wound debridement and wound vac application with possible bone biopsy. Either way, I believe patient is looking at extended duration with wound vac therapy. Patient will be admitted to [facility]. Will start her on IV antibiotics. Will get mri. Possible surgery tomorrow pending mri. Will consult ID. Patient is at great risk of lower leg amputation. Patient will greatly benefit from nutrition consult. Her diabetes is very poorly controlled. BRITTANIE Stark RN 08/22/2018 3:05 PM Signed GiveNextel Ag applied to ulcer of R plantar foot. Covered with sterile 4x4 and secured with alison. MYLA wrap applied to R foot and ankle per patient request. Wet to dry dressing applied to ulcer of L plantar foot. MYLA wrap applied to L foot and ankle per patient request. Referring Provider: SENDY ALLEN [[id number]] Allergies As of Date: 08/22/2018 Noted Allergy Reaction OXYCONTIN (OXYCODONE HCL) 09/27/2007 Comments: itch PENICILLINS 06/02/2007 4 - Hives REQUIP (ROPINIROLE) 11/18/2015 5 - Intolerance Comments: Vomiting, panic attacks, itching Date Reviewed: 08/22/2018 Reviewed by: Cecy Carbajal RN - Fully Assessed Reason for Visit: Follow Up [171] Primary Visit Diagnosis:Diabetic ulcer of left midfoot associated with type 2 diabetes mellitus, with fat layer exposed (HCC) [E11.621, L97.422] Other Visit Diagnosis:Diabetic ulcer of right midfoot associated with type 2 diabetes mellitus, with fat layer exposed (HCC) [E11.621, L97.412] Prescriptions as of 08/22/2018 Sig: INSULIN ASPART U-100 100 UNI* Inject 15 Units subcutaneousl* INSULIN DETEMIR (U-100) 100 U* Inject 30 Units subcutaneousl* BLOOD-GLUCOSE METER 1 Units as directed. Dx: E11.* ROPINIROLE 3 MG TABLET Take 1 tablet by mouth twice * MAGNESIUM OXIDE 400 MG (241.3* Take 1 tablet by mouth twice * ACETAMINOPHEN 300 MG-CODEINE * OMEPRAZOLE 20 MG CAPSULE,JR* Take 1 capsule by mouth daily* ROSUVASTATIN 40 MG TABLET Take 1 tablet by mouth once d* PEN NEEDLE, DIABETIC 31 GAUGE* Use as directed four times da* ERGOCALCIFEROL (VITAMIN D2) 5* Take 1 capsule by mouth once * ALPHA LIPOIC ACID 600 MG CAPS* Take 600 mg by mouth once arnold* ASCORBIC ACID (VITAMIN C) 500* Take 1 tablet by mouth twice * BLOOD SUGAR DIAGNOSTIC STRIPS Test blood sugar(s) 3- 4 times* BLOOD SUGAR DIAGNOSTIC STRIPS Check blood sugar readings 2-* LANCETS Check blood sugar readings 2-* BLOOD-GLUCOSE METER KIT 1 Each as needed. LANCETS Test 2-3 times a day GABAPENTIN 800 MG TABLET Take 1 tablet by mouth three * DOXYCYCLINE MONOHYDRATE 100 M* Take 1 capsule by mouth twice* Problem List As Of Date 08/22/2018 Noted Resolved Reaction, adjustment, with depressed mood, prol*INVALID FOR* More... Diabetic polyneuropathy associated with type 2 *INVALID FOR* More... 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 Osteomyelitis (HCC) [M86.9] INVALID FOR* Priority: A More... Clostridium difficile infection [B96.89] INVALID FOR* Priority: C More... Urinary hesitancy [R39.11] INVALID FOR*05/30/2015 Priority: D More... SUMMARY INVALID FOR* Priority: Very Severe More... Urinary hesitancy [R39.11] INVALID FOR*06/04/2015 More... RLS (restless legs syndrome) [G25.81] INVALID FOR* More... Anxiety neurosis [F41.1] INVALID FOR* More... Positive urine drug screen [R82.5] INVALID FOR* More... Charcot foot due to diabetes mellitus (HCC) [E1*INVALID FOR* Encounter Status:Closed by SENDY ALLEN DPM on 08/22/18 PROGRESS Observed: 08/22/2018 Status: COMPLETED Source: [place] 1:42 PM [facility] REPOSITORY HNO ID: [id number] Author: Cecy Carbajal RN Service: (none) Author Type: (none) Type: Progress Notes Filed: 08/22/2018 3:05 PM Note Text: AMB ROOMING INTAKE FLOWSHEET DATA Risk Screening Do you have concerns about personal safety or safety in the home?: No Pain Pain Score: 5/10 Pain Location: Foot-Left Description: Aching Duration Units: Unknown Frequency: Intermittent Intervention: Relaxation, Reposition Patient presents to f/u on ulcers of bilateral feet. She presents to clinic fully WB, wearing boot on both feet. She states she got a wheelchair and uses it at home. She continues to apply Aquacel to both feet daily. She continues to take doxycycline. She reports that she has been unable to eat the past 2 days and has vomitted twice. She is not sure if vomitting is caused by doxycycline, she states she has taken it in the past without problems. PROGRESS Observed: 08/18/2018 Status: COMPLETED Source: [place] 12:35 PM [facility] [place] REPOSITORY HNO ID: [id number] Author: Sophia Lay (Rt) Lilian Kimbrough Service: (none) Author Type: Ground Crew Chief Type: Progress Notes Filed: 08/18/2018 12:48 PM Note Text: Radiology Service Progress Note PATIENT NAME: Diony Carrillo DATE OF SERVICE: August 18, 2018 TIME: 12:35 PM PATIENT IDENTITY VERIFICATION COMPLETED USING TWO (2) METHODS: Patient confirmed name verbally and Date of . PATIENT GENDER DATA: Female. status: : No status: NO. PATIENT RELEVANT IMPLANT DATA REVIEWED: Not Applicable RADIOLOGY DEPARTMENT: General X-ray: Exam(s) Completed: Lower Extremity X-Ray(s): Foot, Bilateral: PERIPHERAL IV DATA: Not applicable SIGNED BY: RT Mia August 18, 2018 12:35 PM PROGRESS Observed: 08/18/2018 Status: COMPLETED Source: [place] 10:35 AM [facility] [place] REPOSITORY HNO ID: [id number] Author: Sendy Allen Service: (none) Author Type: Physician Type: Progress Notes Filed: 08/18/2018 11:07 PM Note Text: Follow up podiatric office visit for: Chief Complaint: This 53 year old who presents for evaluation of b/l feet. Patient was last seen by me in may for charcot foot and was sent to Dr. Howard Andrews for surgical consultation. She has been seen by Dr. Andrews who recommended AFO. Patient had afo made but per patient report, she is not able to get afo until Aug 28. She also was given prescription for diabetic shoes but she states that since she has not seen her pcp in over one year, she is unable to get her shoes. Of note, patient developed ulcerations to plantar feet b/l. She developed ulcer to right foot >2 weeks ago and ulcer to left foot ~9 days ago. She did not make any office appointment as she figured she could manage these herself with santyl. She has been using boot to right foot. She developed pain in her b/l feet so she presented to hospital yesterday. She was placed in boot on left foot. Patient was given antibiotic but she is unsure what she was given. Patient denies n/v/f/c. PAIN EVALUATION No data found. 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 insulin aspart U-100 (NOVOLOG FLEXPEN U-100 INSULIN) 100 unit/mL inpn Inject 15 Units subcutaneously three times daily with meals. insulin detemir U-100 (LEVEMIR FLEXPEN) 100 unit/mL (3 mL) inpn injection Inject 30 Units subcutaneously daily before breakfast. Blood-Glucose Meter (ACCU-CHEK MEGAN CONNECT METER) misc 1 Units as directed. Dx: E11.40 rOPINIRole Hydrochloride 3 mg tablet Take 1 tablet by mouth twice daily. magnesium oxide (MAG-OX) 400 mg tablet Take 1 tablet by mouth twice daily. doxycycline monohydrate (MONODOX) 100 mg capsule Take 1 capsule by mouth twice daily. acetaminophen-codeine (TYLENOL-COD #3) 300-30 mg per tablet omeprazole (PRILOSEC) 20 mg capsule Take 1 capsule by mouth daily before breakfast. 1/2 hr before meal. rosuvastatin (CRESTOR) 40 mg tablet Take 1 tablet by mouth once daily. insulin needles, DISPOSABLE, (PEN NEEDLE) 31 gauge x 5/16 ndle Use as directed four times daily ergocalciferol, vitamin D2, (DRISDOL) 50,000 unit capsule Take 1 capsule by mouth once each week. Alpha Lipoic Acid 600 mg cap Take 600 mg by mouth once daily. ascorbic acid, vitamin C, (VITAMIN C) 500 mg tablet Take 1 tablet by mouth twice daily. Take with iron (ferrous sulfate). blood sugar diagnostic (ACCU-CHEK MEGAN) test strip Test blood sugar(s) 3-4 times daily. Dx: Type 1 DM - Uncontrolled E 10.65 Insulin: Yes blood sugar diagnostic (ACCU-CHEK MEGAN PLUS TEST STRP) test strip Check blood sugar readings 2-3 times daily and as needed. Insulin dependent. Dx: E11.40 Lancets (ACCU-CHEK MULTICLIX LANCET) lancets Check blood sugar readings 2-3 times daily. Insulin dependent. Dx: E11.40 Blood-Glucose Meter (BLOOD GLUCOSE MONITORING) monitoring kit 1 Each as needed. Lancets lancets Test 2-3 times a day No current facility-administered medications for this visit. ALLERGIES Allergen Reactions - Oxycontin [Oxycodon* itch - Penicillins Hives - Requip [Ropinirole] Intolerance Vomiting, panic attacks, itching PAST SURGICAL HISTORY Procedure Laterality Date - DELIVERY ONLY , low cervical - EGD W/O OR W/BRUSH/WASH 05/10/2012 EGD - LIGATE FALLOPIAN TUBE Tubal ligation - PAST SURGICAL HISTORY OF removal right 5th metatarsal - PICC LINE INSERT/CONSULT 06/14/2014 - REPAIR ROTATOR CUFF,ACUTE 1996 Rotator cuf repair right, Dr Alvarado - [facility] N/CARPAL TUNNEL SURG 1996 Carpal tunnel decomp, right, Dr Alvarado - [facility] N/CARPAL TUNNEL SURG 2009 Carpal tunnel decomp, LEFT REVIEW OF SYSTEMS: CONSTITUTIONAL: No fevers, chills, nightsweats, unintended weight loss HEENT: Denies frequent or severe heaches, nasal congestion/sinus symptoms, problematic allergy problems. EYES: No diplopia or blurry vision. CARDIOVASCULAR: No chest pain, dyspnea, palpitations, orthopnea, PND, ankle edema. PULM: No dyspnea, unexplained cough. GI: No dysphagia/odynophagia, problematic reflux, constipation, diarrhea, changes in stool habits, hematochezia, melena. : No new urinary complaints, including dysuria, gross hematuria or pyuria. NEURO: No new balance problems, peripheral weakness/paresthesias or numbness of concern. MUSC-SKEL: Pain present to b/l feet. PSY: No concerns regarding depression, anxiety or panic. INTEGUMENTARY: ulcer of b/l feet Physical Exam: Constitutional: Pt is a well developed 53 year old female who is alert, oriented, cooperative and in no apparent distress. OBJECTIVE: NVSI unchanged from previous visit. Dermatological: There is hyperkeratosis to plantar aspect of lateral midfoot. Both callus was debrided with tissue nippers and 15 blade. There is full thickness ulceration with granular base to plantar lateral midfoot b/l. The left foot ulceration is 1.0 cm x 1.0 cm x 0.3 cm. No exposed tendon, capsule or bone. There is very minimal erythema present. No fluctuance. No purulence. Right foot ulceration is 1.0 cm x 0.9 cm x 0.3 cm. No exposed tendon, capsule or bone. Musculoskeletal/Orthopaedic: Patient has pain to palpation of b/l feet There is swelling of b/l foot. No deep calf pain present. There is b/l 5th ray amputation. ASSESSMENT: (E11.621, L97.422) Diabetic ulcer of left midfoot associated with type 2 diabetes mellitus, with fat layer exposed (HCC) (primary encounter diagnosis (E11.621, L97.412) Diabetic ulcer of right midfoot associated with type 2 diabetes mellitus, with fat layer exposed (HCC) PLAN: 1. History and physical examination completed today. 2. Discussed ulceration of b/l foot. These ulcerations are full thickness. Full thickness debridement of b/l foot ulceration thru dermis, epidermis, subcutaneous tissue was performed with tissue nippers and 15 blade. bleeding present and controlled with pressure. Wound culture was sent of left foot given vinicius-wound erythema. There is no fluctuance or drainage present. She is on doxycycline. She iwll continue. Will monitor culture results. 3. I have discussed care for b/l foot ulceration. This is complicated case in that patient takes care of herself, does not stay off her feet and has not followed in past with getting diabetic shoes or afo. She has afo prescribed by Dr. Andrews which has been approved but per patient, she does not receive until aug 28. She has diabetic shoes prescribed but according to patient this has not been accepted. I suspect this is due to the fact she has not seen her pcp in over one year. Recommend she make follow-up with her pcp. 4. Today, I discussed total contact casting. She does have very little redness on left foot so I will place her in boot with peg assisted offloading and she is instructed to perform daily dressing changes daily with silvercel. I want her to monitor for any progression or regression of redness. She was prescribed wheel chair and she will remain off her foot in wheel chair at all times. 5. I will see her back on Tuesday for possible total contact casting. 6. I have contacted case management to facilitate home health to assist in providing care for her so that she may not have to be on her feet at home. 7. xrays ordered of B/l feet 8. Patient does not fully understand the severity of these ulcerations and potential risk of amputation. I discussed this today and she now understands. 9. Reviewed her diet. Her diet is filled with sodas, pastas, snacks, sweets. She needs to work on diet otherwise, her sugars will not improve. Will pace order for nutrition consult. Sendy Allen DPM CNOV Observed: 08/18/2018 Status: COMPLETED Source: [place] 10:10 AM [facility] REPOSITORY Office Visit (PODIWS) DIONY CARRILLO ([id number]) 1965 F Date Time Provider Department 08/18/18 10:10 AM SENDY ALLEN During your visit today, we recorded the following information about you: Sendy Allen DPM 08/18/2018 11:07 PM Signed Follow up podiatric office visit for: Chief Complaint: This 53 year old who presents for evaluation of b/l feet. Patient was last seen by me in may for charcot foot and was sent to Dr. Howard Andrews for surgical consultation. She has been seen by Dr. Andrews who recommended AFO. Patient had afo made but per patient report, she is not able to get afo until Aug 28. She also was given prescription for diabetic shoes but she states that since she has not seen her pcp in over one year, she is unable to get her shoes. Of note, patient developed ulcerations to plantar feet b/l. She developed ulcer to right foot >2 weeks ago and ulcer to left foot ~9 days ago. She did not make any office appointment as she figured she could manage these herself with santyl. She has been using boot to right foot. She developed pain in her b/l feet so she presented to hospital yesterday. She was placed in boot on left foot. Patient was given antibiotic but she is unsure what she was given. Patient denies n/v/f/c. PAIN EVALUATION No data found. 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 insulin aspart U-100 (NOVOLOG FLEXPEN U-100 INSULIN) 100 unit/mL inpn Inject 15 Units subcutaneously three times daily with meals. insulin detemir U-100 (LEVEMIR FLEXPEN) 100 unit/mL (3 mL) inpn injection Inject 30 Units subcutaneously daily before breakfast. Blood-Glucose Meter (ACCU-CHEK MEGAN CONNECT METER) misc 1 Units as directed. Dx: E11.40 rOPINIRole Hydrochloride 3 mg tablet Take 1 tablet by mouth twice daily. magnesium oxide (MAG-OX) 400 mg tablet Take 1 tablet by mouth twice daily. doxycycline monohydrate (MONODOX) 100 mg capsule Take 1 capsule by mouth twice daily. acetaminophen-codeine (TYLENOL-COD #3) 300-30 mg per tablet omeprazole (PRILOSEC) 20 mg capsule Take 1 capsule by mouth daily before breakfast. 1/2 hr before meal. rosuvastatin (CRESTOR) 40 mg tablet Take 1 tablet by mouth once daily. insulin needles, DISPOSABLE, (PEN NEEDLE) 31 gauge x 5/16 ndle Use as directed four times daily ergocalciferol, vitamin D2, (DRISDOL) 50,000 unit capsule Take 1 capsule by mouth once each week. Alpha Lipoic Acid 600 mg cap Take 600 mg by mouth once daily. ascorbic acid, vitamin C, (VITAMIN C) 500 mg tablet Take 1 tablet by mouth twice daily. Take with iron (ferrous sulfate). blood sugar diagnostic (ACCU-CHEK MEGAN) test strip Test blood sugar(s) 3-4 times daily. Dx: Type 1 DM - Uncontrolled E 10.65 Insulin: Yes blood sugar diagnostic (ACCU-CHEK MEGAN PLUS TEST STRP) test strip Check blood sugar readings 2-3 times daily and as needed. Insulin dependent. Dx: E11.40 Lancets (ACCU-CHEK MULTICLIX LANCET) lancets Check blood sugar readings 2-3 times daily. Insulin dependent. Dx: E11.40 Blood-Glucose Meter (BLOOD GLUCOSE MONITORING) monitoring kit 1 Each as needed. Lancets lancets Test 2-3 times a day No current facility-administered medications for this visit. ALLERGIES Allergen Reactions - Oxycontin [Oxycodon* itch - Penicillins Hives - Requip [Ropinirole] Intolerance Vomiting, panic attacks, itching PAST SURGICAL HISTORY Procedure Laterality Date - DELIVERY ONLY , low cervical - EGD W/O OR W/BRUSH/WASH 05/10/2012 EGD - LIGATE FALLOPIAN TUBE Tubal ligation - PAST SURGICAL HISTORY OF removal right 5th metatarsal - PICC LINE INSERT/CONSULT 06/14/2014 - REPAIR ROTATOR CUFF,ACUTE 1996 Rotator cuf repair right, Dr Alvarado - [facility] N/CARPAL TUNNEL SURG 1996 Carpal tunnel decomp, right, Dr Alvarado - [facility] N/CARPAL TUNNEL SURG 2009 Carpal tunnel decomp, LEFT REVIEW OF SYSTEMS: CONSTITUTIONAL: No fevers, chills, nightsweats, unintended weight loss HEENT: Denies frequent or severe heaches, nasal congestion/sinus symptoms, problematic allergy problems. EYES: No diplopia or blurry vision. CARDIOVASCULAR: No chest pain, dyspnea, palpitations, orthopnea, PND, ankle edema. PULM: No dyspnea, unexplained cough. GI: No dysphagia/odynophagia, problematic reflux, constipation, diarrhea, changes in stool habits, hematochezia, melena. : No new urinary complaints, including dysuria, gross hematuria or pyuria. NEURO: No new balance problems, peripheral weakness/paresthesias or numbness of concern. MUSC-SKEL: Pain present to b/l feet. PSY: No concerns regarding depression, anxiety or panic. INTEGUMENTARY: ulcer of b/l feet Physical Exam: Constitutional: Pt is a well developed 53 year old female who is alert, oriented, cooperative and in no apparent distress. OBJECTIVE: NVSI unchanged from previous visit. Dermatological: There is hyperkeratosis to plantar aspect of lateral midfoot. Both callus was debrided with tissue nippers and 15 blade. There is full thickness ulceration with granular base to plantar lateral midfoot b/l. The left foot ulceration is 1.0 cm x 1.0 cm x 0.3 cm. No exposed tendon, capsule or bone. There is very minimal erythema present. No fluctuance. No purulence. Right foot ulceration is 1.0 cm x 0.9 cm x 0.3 cm. No exposed tendon, capsule or bone. Musculoskeletal/Orthopaedic: Patient has pain to palpation of b/l feet There is swelling of b/l foot. No deep calf pain present. There is b/l 5th ray amputation. ASSESSMENT: (E11.621, L97.422) Diabetic ulcer of left midfoot associated with type 2 diabetes mellitus, with fat layer exposed (HCC) (primary encounter diagnosis (E11.621, L97.412) Diabetic ulcer of right midfoot associated with type 2 diabetes mellitus, with fat layer exposed (HCC) PLAN: 1. History and physical examination completed today. 2. Discussed ulceration of b/l foot. These ulcerations are full thickness. Full thickness debridement of b/l foot ulceration thru dermis, epidermis, subcutaneous tissue was performed with tissue nippers and 15 blade. bleeding present and controlled with pressure. Wound culture was sent of left foot given vinicius-wound erythema. There is no fluctuance or drainage present. She is on doxycycline. She iwll continue. Will monitor culture results. 3. I have discussed care for b/l foot ulceration. This is complicated case in that patient takes care of herself, does not stay off her feet and has not followed in past with getting diabetic shoes or afo. She has afo prescribed by Dr. Andrews which has been approved but per patient, she does not receive until aug 28. She has diabetic shoes prescribed but according to patient this has not been accepted. I suspect this is due to the fact she has not seen her pcp in over one year. Recommend she make follow-up with her pcp. 4. Today, I discussed total contact casting. She does have very little redness on left foot so I will place her in boot with peg assisted offloading and she is instructed to perform daily dressing changes daily with silvercel. I want her to monitor for any progression or regression of redness. She was prescribed wheel chair and she will remain off her foot in wheel chair at all times. 5. I will see her back on Tuesday for possible total contact casting. 6. I have contacted case management to facilitate home health to assist in providing care for her so that she may not have to be on her feet at home. 7. xrays ordered of B/l feet 8. Patient does not fully understand the severity of these ulcerations and potential risk of amputation. I discussed this today and she now understands. 9. Reviewed her diet. Her diet is filled with sodas, pastas, snacks, sweets. She needs to work on diet otherwise, her sugars will not improve. Will pace order for nutrition consult. BRITTANIE Stark RN 08/18/2018 11:27 AM Signed Apply Snowman Ag every day to ulcers of both feet. Continue to wear bilateral boots. It is critical that you stay off of your feet and use a wheelchair. Follow up next week for possible cast. Referring Provider: SELF [[id number]] Allergies As of Date: 08/18/2018 Noted Allergy Reaction OXYCONTIN (OXYCODONE HCL) 09/27/2007 Comments: itch PENICILLINS 06/02/2007 4 - Hives REQUIP (ROPINIROLE) 11/18/2015 5 - Intolerance Comments: Vomiting, panic attacks, itching Date Reviewed: 08/18/2018 Reviewed by: Darlene Stein LPN - Fully Assessed Reason for Visit: Established Patient [175] Primary Visit Diagnosis:Diabetic ulcer of left midfoot associated with type 2 diabetes mellitus, with fat layer exposed (HCC) [E11.621, L97.422] Other Visit Diagnoses:Diabetic ulcer of right midfoot associated with type 2 diabetes mellitus, with fat layer exposed (HCC) [E11.621, L97.412] Other diabetic neurological complication associated with type 2 diabetes mellitus (HCC) [E11.49] Order(s):XR FOOT GENERAL 3V AP/LAT/OBL BILAT [[id number]] Order #: [id number] FUTURE WOUND CULTURE AND GRAM STAIN [SQWCUL] Order #: [id number] HEAVY DUTY WHEELCHAIR [[id number]] Order #: [id number] CONSULT TO NUTRITION THERAPY [9044] Order #: [id number]: 1 Prescriptions as of 08/18/2018 Sig: GABAPENTIN 800 MG TABLET Take 1 tablet by mouth three * INSULIN ASPART U-100 100 UNI* Inject 15 Units subcutaneousl* INSULIN DETEMIR (U-100) 100 U* Inject 30 Units subcutaneousl* BLOOD-GLUCOSE METER 1 Units as directed. Dx: E11.* ROPINIROLE 3 MG TABLET Take 1 tablet by mouth twice * MAGNESIUM OXIDE 400 MG (241.3* Take 1 tablet by mouth twice * DOXYCYCLINE MONOHYDRATE 100 M* Take 1 capsule by mouth twice* ACETAMINOPHEN 300 MG-CODEINE * OMEPRAZOLE 20 MG CAPSULE,JR* Take 1 capsule by mouth daily* ROSUVASTATIN 40 MG TABLET Take 1 tablet by mouth once d* PEN NEEDLE, DIABETIC 31 GAUGE* Use as directed four times da* ERGOCALCIFEROL (VITAMIN D2) 5* Take 1 capsule by mouth once * ALPHA LIPOIC ACID 600 MG CAPS* Take 600 mg by mouth once arnold* ASCORBIC ACID (VITAMIN C) 500* Take 1 tablet by mouth twice * BLOOD SUGAR DIAGNOSTIC STRIPS Test blood sugar(s) 3- 4 times* BLOOD SUGAR DIAGNOSTIC STRIPS Check blood sugar readings 2-* LANCETS Check blood sugar readings 2-* BLOOD-GLUCOSE METER KIT 1 Each as needed. LANCETS Test 2-3 times a day Problem List As Of Date 08/18/2018 Noted Resolved Reaction, adjustment, with depressed mood, prol*INVALID FOR* More... Diabetic polyneuropathy associated with type 2 *INVALID FOR* More... 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 Osteomyelitis (HCC) [M86.9] INVALID FOR* Priority: A More... Clostridium difficile infection [B96.89] INVALID FOR* Priority: C More... Urinary hesitancy [R39.11] INVALID FOR*05/30/2015 Priority: D More... SUMMARY INVALID FOR* Priority: Very Severe More... Urinary hesitancy [R39.11] INVALID FOR*06/04/2015 More... RLS (restless legs syndrome) [G25.81] INVALID FOR* More... Anxiety neurosis [F41.1] INVALID FOR* More... Positive urine drug screen [R82.5] INVALID FOR* More... Charcot foot due to diabetes mellitus (HCC) [E1*INVALID FOR* Other instructions from your clinician: Apply Aquacel Ag every day to ulcers of both feet. Continue to wear bilateral boots. It is critical that you stay off of your feet and use a wheelchair. Follow up next week for possible cast. Encounter Status:Closed by SENDY ALLEN DPM on 08/18/18 WOUND Observed: 08/18/2018 Status: F Source: [place] CULTURE/STAIN 3:10 AM [facility] [place] REPOSITORY Sp. Request/Comment: - Swab Smear Result - Few Gram positive cocci in pairs and chains --> ABNORMAL ALERT Rare Polymorphonuclear leukocytes Culture Result - Moderate Streptococcus agalactiae (Group B streptococcus) --> ABNORMAL ALERT Susceptibility testing not performed on beta hemolytic streptococci due to predictable susceptibility to penicillin and other beta lactams. For testing, call Microbiology within 72 hours. --> ABNORMAL ALERT Moderate --> ABNORMAL ALERT Staphylococcus aureus --> ABNORMAL ALERT Rare skin lee ann ORGANISM: Staphylococcus aureus METHOD: Minimum inhibitory concentration(Vitek) Antibiotic Interp MIKE Status Erythromycin SUSCEPTIBLE <=0.25 F Clindamycin SUSCEPTIBLE 0.25 F Tetracycline RESISTANT >=16 F Vancomycin SUSCEPTIBLE <=0.5 F Oxacillin SUSCEPTIBLE 0.5 F Oxacillin susceptible staphylococci are susceptible to other penicillinase stable penicillins, beta lactam/beta lactamase inhibitor combinations, anti staphyloccal cephems, and carbapenems. Trimeth sulfameth SUSCEPTIBLE <=10 F Gentamicin SUSCEPTIBLE <=0.5 F Rifampin SUSCEPTIBLE <=0.5 F Rifampin should not be used alone for antimicrobial therapy. Doxycycline SUSCEPTIBLE 4 F Performed By: #### WCUL #### [facility] [address] [place], [place] [address] EMERGENCY DEPARTMENT Observed: 08/17/2018 Status: F Source: [place] SUMMARY 5:[address] [facility] REPOSITORY [facility] Medical Records Department [address] [place] [address] Emergency Department Summary 08/17/18 1604 MR#: [id number] Acct: [id number] Name: DIONY CARRILLO Rep #: [id number] : 1965 53 From: Richie Hughes MD PCP: Alessandro Eric MD Status: DEP ER - ER Visit Summary Date of Service: 08/17/18 Chief Complaint: Bilateral foot pain History of Present Illness: The patient is a [address] Mik Kirk and Dr. Allen. She reports that she has had her small toe amputated bilaterally by Dr. Guido 3-4 years ago. She reports that her right foot is chronically swollen. She states that she has pain in the bottom of her right foot that is 6 out of 10 with walking and she is pain-free at rest. She reports that her left foot began swelling this week. States that she has pain that is 7 out of 10 at rest there is an 8 out of 10 with walking. She describes the pain as throbbing. She denies any constitutional symptoms. No fever, chills, nausea, or vomiting. Physical Examination: Vitals: Stable. Afebrile. General: Well-nourished and well-developed. Head: Normocephalic atraumatic. Neck: Supple, no lymphadenopathy. No JVD. Nontender. Cardiovascular: Regular rate and rhythm. No murmurs. Respiratory: No respiratory distress. Clear to auscultation bilaterally. Abdominal: Soft, nontender, nondistended, normal bowel sounds. No guarding, rebound, or peritoneal signs. Back: Nontender. Extremities: 2+ dorsalis pedis pulse bilaterally. She has soft tissue swelling on the bottom of both feet over the area where the fifth metatarsal would be present. The swelling appears old. There is callus on both of them. There is approximately 2 mm central defect on both as well. There is no drainage. There is no surrounding erythema, induration, or fluctuance. Skin: Normal color, no rash. Neurologic: Alert and oriented 3. Cranial nerves II through XII are intact. Normal strength and sensation. Psych: Normal affect. Test Results: CBC is remarkable for a white count of 11.8 with 80 segmented neutrophils and 12 lymphocytes. Chem-7 is more for sodium 135, BUN 20, creatinine 1.07, glucose 251. Clinical Impression(s) from Imaging Studies Foot X-Ray 08/17/18 14:52 IMPRESSION: Status post amputation of the mid and distal portion of the fifth metatarsal and fifth toe. Irregular density of the distal row of the tarsal joints as well as tarsal metatarsal joint suggestive of a Charcot's deformity. Electronically Signed: Ronnie Saavedra MD at 15:34 EST Tel [phone], Service support , Foot X-Ray 08/17/18 14:52 IMPRESSION: Soft tissue swelling overlying the base of the fifth metatarsal. Status post resection of the mid and distal portion of the fifth metatarsal and fifth toe. Electronically Signed: Ronnie Saavedra MD at 15:10 EST Tel [phone], Service support , Emergency Department Course and Treatment: Patient had her pain treated with morphine IV. She was also given doxycycline p.o. and Zofran IV. She is resting comfortably. Treatment Plan: Patient reports that she has brought in able to get her ankle foot orthotics filled. She also does not have her diabetic shoes. She states that both of these are at [facility] and they will not give them to her until August 28. She was placed in a walking boot on the left and already has one for the right. She was discussed with Dr. Allen and is scheduled to see him tomorrow. She will be discharged instructions to follow-up tomorrow as previously scheduled. She will be given doxycycline and [place]. Return to the emergency department for any worsening symptoms. Disposition: To home in improved and stable condition. Impression: 1. Postsurgical changes to feet bilaterally. This note was generated with [employer] dictation software. It may contain incorrect words, spelling, and punctuation that were not noted in review of the chart prior to signing ED Disposition - Plan for ED Patient: Disposition: Home or Assisted Living Chief Complaint: Lower Extremity Injury Instructions: Diabetes: Treating Minor Foot Infections Prescriptions: Hydrocodone Bitart/Apap 5-325 [[place] 5MG-325MG] 1 tablet PO Q4H PRN PRN 2 Days #10 tablet PRN Reason: Pain Doxycycline Monohydrate 100 mg PO BID #20 capsule Referrals: Sendy Allen DPM [STAFF PHYSICIAN] - 1 Day for another exam What to do if you have Problems For any increased pain, shortness of breath, bleeding, nausea or vomiting, chest pain, or any unexpected problems, contact your Primary Care Provider. Call [facility] ([phone]) or report to the closest Emergency Room. Call 911 if necessary. 08/17/18 9488 <Electronically signed by Richie Hughes MD> Date Richie Hughes MD Cosigner Signature (If Indicated): Date CC: Alessandro Eric MD CBC W/DIFF, AUTOMATED Collected: 08/17/2018 Status: F Source: [place] 3:[address] [facility] REPOSITORY TYPE CODE TESTS RESULT OUT OF RANGE REFERENCE UNITS LAB L100.1000 4.4-11.0 K/mm3 High WBC 11.8 LAB L100.1200 4.2-5.4 M/mm3 Normal RBC 4.60 LAB L100.1300 12.0-15.0 g/dl Normal HGB 13.2 LAB L100.1400 37-47 % Normal HCT 39.7 LAB L100.1500 81-99 fL Normal MCV 86.3 LAB L100.1600 27.0-32.0 pg Normal MCH 28.7 LAB L100.1700 32-36 g/gl Normal MCHC 33.2 LAB L100.1810 11.6-14.6 % Normal RDW CV 13.7 LAB L100.1820 35.1-43.9 fl Normal RDW SD 43.1 LAB L100.1900 150-450 K/mm3 Normal PLT 346 LAB L100.2000 6.2-12.0 fl Normal MPV 10.7 LAB L100.2100 47-70 % High NEUT% 80.1 LAB L100.2200 19-41 % Low LY% 11.9 LAB L100.2300 0-10 % Normal MONO% 6.8 LAB L100.2400 0-5 % Normal EO% 0.8 LAB L100.2500 0-1 % Normal BASO% 0.2 LAB L100.2550 0.0-0.9 % Normal IM GRAN % 0.200 Result Comment: IG% - Immature Granulocytes (promyelocytes, myelocytes and metamyelocytes) > 1% indicates that a LEFT SHIFT is Present. LAB L100.2620 2.0-7.7 X10 3/uL High Absolute Neut 9.4 LAB L100.2720 0.83-4.51 X10 3/ul Normal Absolute Lymph 1.40 Performed By: #### L100.0100 #### [facility] [address] [place], [place], [id number] BASIC METABOLIC Collected: 08/17/2018 Status: F Source: [place] PROFILE (BMP) 3:[address] [facility] REPOSITORY TYPE CODE TESTS RESULT OUT OF RANGE REFERENCE UNITS LAB L501.0100 74-106 mg/dL High GLU 251 Result Comment: Glucose result greater than or equal to 200 mg/dL suggests DIABETES MELLITUS per A.D.A. criteria. Please note revised GLUCOSE reference range effective 2017. LAB L501.1000 7-18 mg/dL High BUN 20 LAB L501.1100 0.55-1.02 mg/dL High CREAT,SERUM 1.07 Result Comment: The validity of the calculated GFR AND GFRAA in patients over 70 years has not been determined. Clinical correlation is essential. LAB L501.1110 >60 mL/min Low EST GFR 57 Result Comment: Non- GFR Calc LAB L501.1115 >60 mL/min Normal EST GFR - AA 69 Result Comment: GFR Calc LAB L501.1255 ml/min Normal Estimated CRCL 56.92 LAB L501.1300 10-20 RATIO Normal BUN/CRE 18.7 LAB L501.2200 8.5-10 mg/dL Normal .1 CA 9.5 LAB L501.5300 136-14 mmol/L Low 5 NA 135 LAB L501.5600 3.5-5. mmol/L Normal 1 K 3.6 LAB L501.5900 98-107 mmol/L Normal CL 103 LAB L501.6100 21.0-3 mmol/L Normal 2.0 CO2 23.0 LAB L501.6200 5-15 Normal GAP 9 Performed By: #### L500.2500 #### [facility] [address] [place], [address] FOOT MIN 3 VIEWS Observed: 08/17/2018 Status: F Source: [place] 2:[address] [facility] REPOSITORY [facility] Imaging Services [address] [place] [address] Foot min 3 Views MR#: [id number] Acct: [id number] Name: DIONY CARRILLO Rep #: [id number] : 1965 F 53 From: Ronnie Saavedra MD PCP: Alessandro Eric MD Status: REG ER Study: Foot min 3 Views Date of Exam: 08/17/18 Exam# [id number] Ordering Dr: Richie Hughes MD STUDY: X-RAY - LEFT FOOT CLINICAL: Female, 53 years old. One-month history of pain bilaterally. TECHNIQUE: 3 view(s) of the foot. COMPARISON: Comparison is made with prior study dated January 27, 2015. FINDINGS: Normal talus, calcaneus, and tarsal bones. Normal visualized subtalar, talonavicular, calcaneocuboid, tarsal and tarsometatarsal articulations. Since prior study, the patient has undergone almost complete resection of the fifth metatarsal and fifth toe. Normal metatarsophalangeal joint of the great toe. Normal tibial and fibular sesamoid bones. Normal interphalangeal joint of the great toe. Normal phalanges of the great toe. Normal second through fifth metatarsophalangeal joints. Normal interphalangeal joints and phalanges of the lesser toes. Soft tissue swelling overlying the base of the fifth metatarsal. RAD/Foot min 3 Views IMPRESSION: Soft tissue swelling overlying the base of the fifth metatarsal. Status post resection of the mid and distal portion of the fifth metatarsal and fifth toe. Electronically Signed: Ronnie Saavedra MD at 15:10 EST Tel [phone], Service support , CC: Alessandro Eric MD; Richie Hughes MD Mobile Lounge Driver Or Operator: Signed FOOT MIN 3 VIEWS Observed: 08/17/2018 Status: F Source: [place] 2:[address] [facility] REPOSITORY [facility] Imaging Services [address] [place] [address] Foot min 3 Views MR#: [id number] Acct: [id number] Name: MENGGAGANDEEPDIONY M Rep #: [id number] : 1965 F 53 From: Rnonie Saavedra MD PCP: Alessandro Eric MD Status: REG ER Study: Foot min 3 Views Date of Exam: 08/17/18 Exam# [id number] Ordering Dr: Richie Hughes MD STUDY: X-RAY - RIGHT FOOT CLINICAL: Female, 53 years old. One-month history of pain. TECHNIQUE: 3 view(s) of the foot. COMPARISON: Comparison is made with prior examination dated October 08, 2014. FINDINGS: Normal talus, calcaneus, and tarsal bones. There now is evidence of sclerosis and inhomogeneous density of the tarsal bones. Charcot's deformity should be ruled out. The patient is status post amputation of the mid and distal portion of the fifth metatarsal as well as the fifth toe. Normal metatarsophalangeal joint of the great toe. Normal tibial and fibular sesamoid bones. Normal interphalangeal joint of the great toe. Normal phalanges of the great toe. Normal second through fifth metatarsophalangeal joints. Normal interphalangeal joints and phalanges of the lesser toes. Soft tissue swelling. RAD/Foot min 3 Views IMPRESSION: Status post amputation of the mid and distal portion of the fifth metatarsal and fifth toe. Irregular density of the distal row of the tarsal joints as well as tarsal metatarsal joint suggestive of a Charcot's deformity. Electronically Signed: Ronnie Saavedra MD at 15:34 EST Tel [phone], Service support , CC: Alessandro Eric MD; Richie Hughes MD Mobile Lounge Driver Or Operator: Signed ALBUMIN/CREAT RATIO Collected: 08/02/2018 Status: F Source: [place] 12:11 PM [facility] REPOSITORY TYPE CODE TESTS RESULT OUT OF REFERENCE UNITS RANGE LAB UCRR 20-300 mg/dL 68.6 Creatinine,Ur ine,Ran LAB UALBR 0.0-23.0 mg/L <12.0 Albumin Urine Random LAB UALBCR 0-30 mg/g Not Albumin/Creat calculated Ratio Performed By: #### UACR #### [facility] [address] [place], [place] [address] CBC AND DIFFERENTIAL Collected: 08/02/2018 Status: F Source: [place] 12:10 PM [facility] REPOSITORY TYPE CODE TESTS RESULT OUT OF REFERENCE UNITS RANGE LAB WBC 3.70-11.00 k/uL WBC 10.34 LAB RBC 3.90-5.20 m/uL RBC 4.56 LAB HGB 11.5-15.5 g/dL Hemoglobin 13.0 LAB HCT 36.0-46.0 % Hematocrit 40.6 LAB MCV 80.0-100.0 fL MCV 89.0 LAB MCH 26.0-34.0 pG MCH 28.5 LAB MCHC 30.5-36.0 g/dL MCHC 32.0 LAB RDWCV 11.5-15.0 % RDW-CV 13.6 LAB PLTCT 150-400 k/uL Platelet Count 324 LAB MPV 9.0-12.7 fL MPV 11.8 LAB ANEUT % Neut% 80.1 LAB AANEUT 1.45-7.50 k/uL Abs Neut High 8.29 LAB ALYMP % Lymph% 13.0 LAB AALYMP 1.00-4.00 k/uL Abs Lymph 1.34 LAB AMONO % [place]% 5.3 LAB AAMONO <0.87 k/uL Abs [place] 0.55 LAB AEOS % Eosin% 0.9 LAB AAEOS <0.46 k/uL Abs Eosin 0.09 LAB ABASO % Baso% 0.7 LAB AABASO <0.11 k/uL Abs Baso 0.07 LAB AUNRBC 0 /100 WBC NRBCs 0.0 LAB ABNRBC <0.01 k/uL Absolute nRBC <0.01 LAB DTYP DTYPE Auto Diff Performed By: #### CBCDIF, CMP, VITD, HBA1C #### [facility] [address] [place], [place] [address] COMP METABOLIC PANEL Collected: 08/02/2018 Status: F Source: [place] 12:10 PM [facility] REPOSITORY TYPE CODE TESTS RESULT OUT OF REFERENCE UNITS RANGE LAB TP 6.3-8.0 g/dL Test reordered by Protein, [facility]. Total Result Comment: [facility] Account Credited LAB ALB 3.9-4.9 g/dL Test Albumin reordered by [facility]. Result Comment: [facility] Account Credited LAB CA 8.5-10.2 mg/dL Test Calcium, Total reordered by [facility]. Result Comment: [place] [address] Account Credited LAB TBIL 0.2-1.3 mg/dL Bilirubin, Test Total reordered by [facility]. Result Comment: [place] [address] Account Credited LAB ALKP 34-123 U/L Alkaline Test Phosphatase reordered by [facility]. Result Comment: [place] [address] Account Credited LAB AST 13-35 U/L Test AST reordered by [facility]. Result Comment: [place] [address] Account Credited LAB GLU 74-99 mg/dL Test Glucose reordered by [facility]. Result Comment: [place] [address] Account Credited LAB BUN 7-21 mg/dL Test BUN reordered by [facility]. Result Comment: [place] [address] Account Credited LAB CRET 0.58-0.96 mg/dL Creatinine Test reordered by [facility]. Result Comment: [place] [address] Account Credited LAB NA 136-144 mmol/L Test Sodium reordered by [facility]. Result Comment: [place] [address] Account Credited LAB K 3.7-5.1 mmol/L Test Potassium reordered by [facility]. Result Comment: [place] [address] Account Credited LAB CL 97-105 mmol/L Test Chloride reordered by [facility]. Result Comment: [place] [address] Account Credited LAB CO2 22-30 mmol/L Test CO2 reordered by [facility]. Result Comment: [place] [address] Account Credited LAB AGAP 9-18 mmol/L Test Anion Gap reordered by [facility]. Result Comment: [place] [address] Account Credited LAB ALT 7-38 U/L Test reordered ALT by [facility]. Result Comment: [place] [address] Account Credited LAB GFRAA eGFR- Amer. Test reordered by [facility]. Result Comment: [place] [address] Account Credited LAB GFRNAA . eGFR-All Test Other Races reordered by [facility]. Result Comment: [place] [id number] Account Credited LAB GFRPED eGFR-Ped. Test Factor reordered by [facility]. Result Comment: [place] [id number] Account Credited Performed By: #### CBCDIF, CMP, VITD, HBA1C #### [facility] [employer] [address] [place] [address] VITAMIN D 25 HYDROXY Collected: 08/02/2018 Status: F Source: [place] 12:10 PM [facility] REPOSITORY TYPE CODE TESTS RESULT OUT OF REFERENCE UNITS RANGE LAB VITD 31.0-80.0 ng/mL Low Vitamin D 25 13.9 Hydroxy Result Comment: Classification of 25 [place] Vitamin D status: Insufficiency/Moderate Deficiency: < or = 30 ng/mL Sufficiency/Optimal Levels: 31 to 80 ng/mL Toxicity: > 100 ng/mL Test performed by chemiluminescent immunoassay. Performed By: #### CBCDIF, CMP, VITD, HBA1C #### [facility] [employer] [facility] [place] [address] HEMOGLOBIN A1C Collected: 08/02/2018 Status: F Source: [place] 12:10 [facility] REPOSITORY TYPE CODE TESTS RESULT OUT OF REFERENCE UNITS RANGE LAB HGBA1C 4.3-5.6 % High Hemoglobin A1c 12.2 LAB HBA0 mg/dL Est. Average Glucose 303 Result Comment: eAG: (Estimated average glucose) is a calculated value from HgbA1c and is service representative of the average blood glucose level in the last 2-3 month period. Performed By: #### CBCDIF, CMP, VITD, HBA1C #### [facility] [employer] [facility] [place] [address] COMP METABOLIC PANEL Collected: 08/02/2018 Status: F Source: [place] 12:03 PM [facility] REPOSITORY TYPE CODE TESTS RESULT OUT OF REFERENCE UNITS RANGE LAB TP 6.3-8.0 g/dL Protein, Total 7.5 LAB ALB 3.9-4.9 g/dL Albumin 4.3 LAB CA 8.5-10.2 mg/dL Calcium, Total 9.6 LAB TBIL 0.2-1.3 mg/dL Bilirubin, Total 0.2 LAB ALKP 34-123 U/L Alkaline Phosphatase 106 LAB AST 13-35 U/L AST 18 LAB GLU 74-99 mg/dL Glucose High 404 Result Comment: The [place] Diabetes Association (ADA) provides guidance for cutoff values for fasting glucose and random glucose. The ADA defines fasting as no caloric intake for at least 8 hours. Fas ting plasma glucose results between 100 to 125 mg/dL indicate increased risk for diabetes (prediabetes). Fasting plasma glucose results greater than or equal to 126 mg/dL meet the criteria for diagnosis of diabetes. In the absence of unequivocal hyperglycemia, results should be confirmed by repeat testing. In a patient with classic symptoms of hyperglycemia or hyperglycemic crisis, random plasma glucose results greater than or equal to 200 mg/dL meet the criteria for diagnosis of diabetes. Reference: Standards of Medical Care in Diabetes 2016, [place] Diabetes Association. Diabetes Care. 2016.39(Suppl 1). LAB BUN 7-21 mg/dL BUN High 23 LAB CRET 0.58-0.96 mg/dL Creatinine 0.85 LAB NA 136-144 mmol/L Low Sodium 132 LAB K 3.7-5.1 mmol/L Potassium 4.7 LAB CL 97-105 mmol/L Low Chloride 96 LAB CO2 22-30 mmol/L Low CO2 21 LAB AGAP 9-18 mmol/L Anion Gap 15 LAB ALT 7-38 U/L ALT 16 LAB GFRAA eGFR- Amer. >60 LAB GFRNAA . eGFR-All Other Races >60 Result Comment: eGFR (Estimated GFR) Units of measure: mL/min/1.73 meters squared eGFR is derived from the reexpressed MDRD Study equation using the following parameters: serum creatinine, age, gender and race. The creatinine assay has been calibrated to be traceable to IDMS. An eGFR <60 mL/min/1.73m2 for >3 months is consistent with chronic kidney disease. Refer to KDOQI guidelines for clinical interpretation. In patients with unstable renal function, e.g. those with acute kidney injury, the eGFR may not accurately reflect actual GFR. Performed By: #### CMP #### [facility] [employer] [address] [place], [place] [address] PROGRESS Observed: 06/21/2018 Status: COMPLETED Source: [place] 3:35 PM [facility] [place] REPOSITORY HNO ID: [id number] Author: Howard Andrews Service: (none) Author Type: Physician Type: Progress Notes Filed: 06/21/2018 9:04 PM Note Text: New Patient Referring Physician: Dr. Alejandro Marrufo Gerardo is a 52 year old female referred by Dr. Allen for right foot/ankle pain she has her 5th toe amputated in 2014. She has had an MRI of the ankle on 04/25. She states that she has charcot foot and neuropathy in her ankle and foot. Her ankle pain is on the lateral aspect of her ankle and goes into the anterior aspect of her ankle. She does have a lump in the lateral ankle as well as the lateral boarder of her foot. She states dg there foot pain is in this area as well as the dorsal aspect of her foot. Pain is rated at a 7/10 ache, throbbing. She has remained in the boot for the last month. CCXR 04/25 CCMRI 06/13 Do you have a metal allergy?: No Current Outpatient Prescriptions: gabapentin (NEURONTIN) 800 mg tablet Take 1 tablet by mouth three times daily for 30 days. Disp: 90 tablet Rfl: 0 insulin aspart U-100 (NOVOLOG FLEXPEN U-100 INSULIN) 100 unit/mL inpn Inject 15 Units subcutaneously three times daily with meals. Disp: 135 Pen Rfl: 0 insulin detemir U-100 (LEVEMIR FLEXPEN) 100 unit/mL (3 mL) inpn injection Inject 30 Units subcutaneously daily before breakfast. Disp: 90 Pen Rfl: 0 Blood-Glucose Meter (ACCU-CHEK MEGAN CONNECT METER) misc 1 Units as directed. Dx: E11.40 Disp: 1 Each Rfl: 0 rOPINIRole Hydrochloride 3 mg tablet Take 1 tablet by mouth twice daily. Disp: 180 tablet Rfl: 1 magnesium oxide (MAG-OX) 400 mg tablet Take 1 tablet by mouth twice daily. Disp: 60 tablet Rfl: 2 doxycycline monohydrate (MONODOX) 100 mg capsule Take 1 capsule by mouth twice daily. Disp: 14 capsule Rfl: 0 acetaminophen-codeine (TYLENOL-COD #3) 300-30 mg per tablet Disp: Rfl: 1 omeprazole (PRILOSEC) 20 mg capsule Take 1 capsule by mouth daily before breakfast. 1/2 hr before meal. Disp: 30 capsule Rfl: 11 rosuvastatin (CRESTOR) 40 mg tablet Take 1 tablet by mouth once daily. Disp: 90 tablet Rfl: 1 insulin needles, DISPOSABLE, (PEN NEEDLE) 31 gauge x 5/16 ndle Use as directed four times daily Disp: 400 Each Rfl: 3 ergocalciferol, vitamin D2, (DRISDOL) 50,000 unit capsule Take 1 capsule by mouth once each week. Disp: 12 capsule Rfl: 0 Alpha Lipoic Acid 600 mg cap Take 600 mg by mouth once daily. Disp: 30 capsule Rfl: 5 ascorbic acid, vitamin C, (VITAMIN C) 500 mg tablet Take 1 tablet by mouth twice daily. Take with iron (ferrous sulfate). Disp: 60 tablet Rfl: 0 blood sugar diagnostic (ACCU-CHEK MEGAN) test strip Test blood sugar(s) 3-4 times daily. Dx: Type 1 DM - Uncontrolled E 10.65 Insulin: Yes Disp: 100 Strip Rfl: 11 blood sugar diagnostic (ACCU-CHEK MEGAN PLUS TEST STRP) test strip Check blood sugar readings 2-3 times daily and as needed. Insulin dependent. Dx: E11.40 Disp: 100 Strip Rfl: 11 Lancets (ACCU-CHEK MULTICLIX LANCET) lancets Check blood sugar readings 2-3 times daily. Insulin dependent. Dx: E11.40 Disp: 100 Each Rfl: 11 Blood-Glucose Meter (BLOOD GLUCOSE MONITORING) monitoring kit 1 Each as needed. Disp: 1 Each Rfl: 0 Lancets lancets Test 2-3 times a day Disp: 100 Each Rfl: 0 No current facility-administered medications for this visit. Allergies As of Date: 06/21/2018 Allergen Noted Reaction OXYCONTIN [OXYCODONE HCL] 09/27/2007 PENICILLINS 06/02/2007 Hives REQUIP [ROPINIROLE] 11/18/2015 Intolerance Fully Assessed 06/21/2018 PAST MEDICAL HISTORY Diagnosis Date - Chronic depressive personality disorder - Degenerative disc disease - Diabetes mellitus without mention of complication Diabetes mellitus - Fallen arches (Broken) on both sides - Polyneuropathy in diabetes(357.2) - Restless legs syndrome (RLS) PAST SURGICAL HISTORY Procedure Laterality Date - DELIVERY ONLY , low cervical - EGD W/O OR W/BRUSH/WASH 05/10/2012 EGD - LIGATE FALLOPIAN TUBE Tubal ligation - PAST SURGICAL HISTORY OF removal right 5th metatarsal - PICC LINE INSERT/CONSULT 06/14/2014 - REPAIR ROTATOR CUFF,ACUTE 1996 Rotator cuf repair right, Dr Alvarado - [facility] N/CARPAL TUNNEL SURG 1996 Carpal tunnel decomp, right, Dr Alvarado - [facility]/CARPAL TUNNEL SURG 2009 Carpal tunnel decomp, LEFT Occupation: none -occupational requirements: none Recreational Activities: none Activities restrictions as follows: none Location: Ankle Right and Foot Right Is the patient having any pain? Yes LOCATION: right foot/ankle PAIN SCALE: 7 on a scale of 0-10 PAIN CHARACTER: aching and throbbing DURATION: (How long have you had the pain?) 3 years FREQUENCY: (How often does the pain occur?) occurs daily Pain Onset:progressive Does the pain radiate? No Associated Factors: deformities Precipitating Factors: Standing and Walking Relieving Factors: resting Progression: Constant Previous Treatment as follows: surgery in 2014 ROS: Have you had any problems or treatment of the following? If yes please describe. Head:No Eyes:No Ears, nose or throat: No Lungs: No Heart or blood pressure: No Stomach or Bowels: No Kidney or Bladder: No Female organs: No Nerve or mental illness: No DM: Yes: type 2 Peripheral Vascular Disease: No Inflammatory Arthritis: No Other: none Bleeding Disorders: No FAMILY HISTORY: Has any member of your immediate family (parents or siblings) had this same problem? If so , who? and what? No SOCIAL HISTORY Marital Status: Tobacco: Non-smoker, never smoked Alcohol: No alcohol consumption WORKERS' COMPENSATION CLAIM Have you missed work for this problem? No If yes, what dates have you missed? Pending Litigation? No What tests have been done for this problem? X-Rays and MRI Scan The patient's pertinent medical history from [facility] has been reviewed. PFOMIS forms have been reviewed. The patient's history of present illness has been confirmed. PHYSICAL EXAM: right ankle, right foot Physical examination reveals an alert and oriented patient who is in no acute distress while sitting and is of normal mood and affect. There were no vitals taken for this visit. Gait Cycle: Normal No, Limp: antalgic:right. Inspection: Alignment:. Previous fifth ray amputation. Prominent lateral fifth metatarsal base, slight varus deformity of the hindfoot Symmetry: Swelling: yes. Redness: no. Ecchymosis: no Effusion: 0 Palpation: Warmth: no, Tenderness:dorsal midfoot, anterior ankle joint line. Lateral ankle and peroneal tendons ROM: Ankle- Normal. Strength: 5 Stability: Ligamentous instability: no Specialized Tests: negative Neurologic Status: Abnormal, no sensation below ankle due to neuropathy Vascular Status: abnormal; 1+ DP/PT Skin: Normal; well healed surgical incision over the 5th toe, no open wounds Bony dorsal prominence over the midfoot Xrays: none today * * *Final Report* * * DATE OF EXAM: Apr 25 2018 ?3:08PM ? WRX ? 5297 ?- ?XR ANKLE 3V AP/LAT/OBL RT ?/ PROCEDURE REASON: multiple diagnoses ?? ? * * * * Physician Interpretation * * * * ?HISTORY: 52-YEAR-OLD FEMALE WITH ? Pain in right foot ? . ?pain on the lateral side of the right foot mid-hidfoot area, for 1 week. (accession [id number]), Lateral right ankle pain after an injury 3 months ago. (accession [id number]) TECHNIQUE: XR FOOT 3V AP/LAT/OBL RT, XR ANKLE 3V AP/LAT/OBL RT ?? Laterality: ?RIGHT ?? Number of different views (projections): 3 COMPARISON: Right foot done on 07/12/2017 in right ankle done on 01/30/2014 RESULT: ?Right ankle: The ankle mortise is maintained. ?There is a small exostosis about the medial malleolus consistent with remote ligament avulsion which is healed. ?There are small calcifications plantar to the lateral malleolus consistent with remote ligament injuries. ?There is an ossicle plantar to the medial malleolus adjacent to the talus consistent with a remote ligament avulsion. ?Os trigonum is present. ?Calcaneal enthesophyte insertion of the Achilles tendon. 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 ?Remote healed fracture of the stump of the proximal fifth metatarsal. ?Cortical thickening of the second through fourth metatarsal diaphyses. ?Narrowing of the second and third tarsometatarsal joints and the fifth tarsometatarsal joint. ?Narrowing of the navicular medial cuneiform articulation. ?Calcification dorsal to the cuneiforms consistent with posttraumatic changes. ?Soft tissue swelling about the midfoot dorsally. MRI: none today * * *Final Report* * * DATE OF EXAM: Jun 11:00AM ? WRM ? 0164 ?- ?MRI ANKLE WO IVCON RT ?/ PROCEDURE REASON: multiple diagnoses ?? ? * * * * Physician Interpretation * * * * ?MRI Right Ankle INDICATION: Lateral sided ankle pain of the right ankle. Chronic in nature. Concern for talofibular injury of the right ankle. History of ulcer of the right foot. COMPARISON: None. TECHNIQUE: Multiplanar PD, T1 and T2 weighted images. RESULT: The exam is, otherwise secondary to motion. Anterior talofibular ligament: Attenuated and ill-defined without focal edema likely sequela of remote injury Posterior talofibular ligament: Within normal limits. Anterior-inferior tibiofibular ligament: Within normal limits. Posterior tibiofibular ligament: Within normal limits. Calcaneofibular ligament: Ill-defined, likely sequela of injury. Deltoid ligament: Attenuated and ill-defined, likely sequela of remote injury. Spring ligament: Thickening, likely chronic degenerative stress changes. Posterior tibial tendon: There is and tendinosis without tearing. Flexor digitorum longus tendon: Within normal limits. Flexor hallucis longus tendon: Within normal limits. Increased signal within the muscle, likely related to chronic strain. Peroneal tendons: Split tear of the peroneus brevis with associated tendinosis. Extensor tendons: Within normal limits. Achilles' tendon: Within normal limits. Bone marrow: There is postsurgical changes of distal fifth metatarsal amputation. There are degenerative changes of the tibiotalar joint with full thickness cartilage loss, most predominantly laterally with underlying cystic changes. There are severe degenerative and neuropathic changes at the navicular cuneiform and cuboid articulations as well all the visualized tarsometatarsal articulations with marrow edema and subchondral cystic change. Deformity of the distal fibula and medial malleolus at the attachment of the lateral and medial ligaments, likely from remote injury Talar dome: full thickness cartilage loss anterolaterally. Plantar fascia: Within normal limits. The tarsal tunnel and sinus tarsi are within normal limits. Joint fluid: ?No joint effusion or synovitis. There is soft tissue edema in the foot and to a lesser extent ankle. 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 Rx given. Discussed appropriate lacing options for her shoe. Discussed surgical options include midfoot fusion and tibiotalar fusion. Patient would like to try the nonoperative treatments for now. Follow up in 6 weeks for re-evaluation. Discussed diabetic control as well. HPI explored in detail with patient and edited as necessary. This note was partially generated using [employer] voice recognition system, and there may be some incorrect words, spellings, and punctuation that were not noted in checking the note before saving. Howard ALARCONOV Observed: 06/21/2018 Status: COMPLETED Source: [place] 3:30 PM [facility] REPOSITORY Office Visit ([place]) DIONY CARRILLO ([id number]) 1965 F Date Time Provider Department 06/21/18 3:30 PM HOWARD ANDREWS During your visit today, we recorded the following information about you: Howard Andrews MD 06/21/2018 9:04 PM Signed New Patient Referring Physician: Dr. Alejandro Carrillo is a 52 year old female referred by Dr. Allen for right foot/ankle pain she has her 5th toe amputated in 2014. She has had an MRI of the ankle on 04/25. She states that she has charcot foot and neuropathy in her ankle and foot. Her ankle pain is on the lateral aspect of her ankle and goes into the anterior aspect of her ankle. She does have a lump in the lateral ankle as well as the lateral boarder of her foot. She states dg there foot pain is in this area as well as the dorsal aspect of her foot. Pain is rated at a 7/10 ache, throbbing. She has remained in the boot for the last month. CCXR 04/25 CCMRI 06/13 Do you have a metal allergy?: No Current Outpatient Prescriptions: gabapentin (NEURONTIN) 800 mg tablet Take 1 tablet by mouth three times daily for 30 days. Disp: 90 tablet Rfl: 0 insulin aspart U-100 (NOVOLOG FLEXPEN U-100 INSULIN) 100 unit/mL inpn Inject 15 Units subcutaneously three times daily with meals. Disp: 135 Pen Rfl: 0 insulin detemir U-100 (LEVEMIR FLEXPEN) 100 unit/mL (3 mL) inpn injection Inject 30 Units subcutaneously daily before breakfast. Disp: 90 Pen Rfl: 0 Blood-Glucose Meter (ACCU-CHEK MEGAN CONNECT METER) misc 1 Units as directed. Dx: E11.40 Disp: 1 Each Rfl: 0 rOPINIRole Hydrochloride 3 mg tablet Take 1 tablet by mouth twice daily. Disp: 180 tablet Rfl: 1 magnesium oxide (MAG-OX) 400 mg tablet Take 1 tablet by mouth twice daily. Disp: 60 tablet Rfl: 2 doxycycline monohydrate (MONODOX) 100 mg capsule Take 1 capsule by mouth twice daily. Disp: 14 capsule Rfl: 0 acetaminophen-codeine (TYLENOL-COD #3) 300-30 mg per tablet Disp: Rfl: 1 omeprazole (PRILOSEC) 20 mg capsule Take 1 capsule by mouth daily before breakfast. 1/2 hr before meal. Disp: 30 capsule Rfl: 11 rosuvastatin (CRESTOR) 40 mg tablet Take 1 tablet by mouth once daily. Disp: 90 tablet Rfl: 1 insulin needles, DISPOSABLE, (PEN NEEDLE) 31 gauge x 5/16 ndle Use as directed four times daily Disp: 400 Each Rfl: 3 ergocalciferol, vitamin D2, (DRISDOL) 50,000 unit capsule Take 1 capsule by mouth once each week. Disp: 12 capsule Rfl: 0 Alpha Lipoic Acid 600 mg cap Take 600 mg by mouth once daily. Disp: 30 capsule Rfl: 5 ascorbic acid, vitamin C, (VITAMIN C) 500 mg tablet Take 1 tablet by mouth twice daily. Take with iron (ferrous sulfate). Disp: 60 tablet Rfl: 0 blood sugar diagnostic (ACCU-CHEK MEGAN) test strip Test blood sugar(s) 3-4 times daily. Dx: Type 1 DM - Uncontrolled E 10.65 Insulin: Yes Disp: 100 Strip Rfl: 11 blood sugar diagnostic (ACCU-CHEK MEGAN PLUS TEST STRP) test strip Check blood sugar readings 2-3 times daily and as needed. Insulin dependent. Dx: E11.40 Disp: 100 Strip Rfl: 11 Lancets (ACCU-CHEK MULTICLIX LANCET) lancets Check blood sugar readings 2-3 times daily. Insulin dependent. Dx: E11.40 Disp: 100 Each Rfl: 11 Blood-Glucose Meter (BLOOD GLUCOSE MONITORING) monitoring kit 1 Each as needed. Disp: 1 Each Rfl: 0 Lancets lancets Test 2-3 times a day Disp: 100 Each Rfl: 0 No current facility-administered medications for this visit. Allergies As of Date: 06/21/2018 Allergen Noted Reaction OXYCONTIN [OXYCODONE HCL] 09/27/2007 PENICILLINS 06/02/2007 Hives REQUIP [ROPINIROLE] 11/18/2015 Intolerance Fully Assessed 06/21/2018 PAST MEDICAL HISTORY Diagnosis Date - Chronic depressive personality disorder - Degenerative disc disease - Diabetes mellitus without mention of complication Diabetes mellitus - Fallen arches (Broken) on both sides - Polyneuropathy in diabetes(357.2) - Restless legs syndrome (RLS) PAST SURGICAL HISTORY Procedure Laterality Date - DELIVERY ONLY , low cervical - EGD W/O OR W/BRUSH/WASH 05/10/2012 EGD - LIGATE FALLOPIAN TUBE Tubal ligation - PAST SURGICAL HISTORY OF removal right 5th metatarsal - PICC LINE INSERT/CONSULT 06/14/2014 - REPAIR ROTATOR CUFF,ACUTE 1996 Rotator cuf repair right, Dr Alvarado - [facility] N/CARPAL TUNNEL SURG 1996 Carpal tunnel decomp, right, Dr Alvarado - [facility] N/CARPAL TUNNEL SURG 2008 Carpal tunnel decomp, LEFT Occupation: none -occupational requirements: none Recreational Activities: none Activities restrictions as follows: none Location: Ankle Right and Foot Right Is the patient having any pain? Yes LOCATION: right foot/ankle PAIN SCALE: 7 on a scale of 0-10 PAIN CHARACTER: aching and throbbing DURATION: (How long have you had the pain?) 3 years FREQUENCY: (How often does the pain occur?) occurs daily Pain Onset:progressive Does the pain radiate? No Associated Factors: deformities Precipitating Factors: Standing and Walking Relieving Factors: resting Progression: Constant Previous Treatment as follows: surgery in 2014 ROS: Have you had any problems or treatment of the following? If yes please describe. Head:No Eyes:No Ears, nose or throat: No Lungs: No Heart or blood pressure: No Stomach or Bowels: No Kidney or Bladder: No Female organs: No Nerve or mental illness: No DM: Yes: type 2 Peripheral Vascular Disease: No Inflammatory Arthritis: No Other: none Bleeding Disorders: No FAMILY HISTORY: Has any member of your immediate family (parents or siblings) had this same problem? If so , who? and what? No SOCIAL HISTORY Marital Status: Tobacco: Non-smoker, never smoked Alcohol: No alcohol consumption WORKERS' COMPENSATION CLAIM Have you missed work for this problem? No If yes, what dates have you missed? Pending Litigation? No What tests have been done for this problem? X-Rays and MRI Scan The patient's pertinent medical history from Psychiatric has been reviewed. PFOMIS forms have been reviewed. The patient's history of present illness has been confirmed. PHYSICAL EXAM: right ankle, right foot Physical examination reveals an alert and oriented patient who is in no acute distress while sitting and is of normal mood and affect. There were no vitals taken for this visit. Gait Cycle: Normal No, Limp: antalgic:right. Inspection: Alignment:. Previous fifth ray amputation. Prominent lateral fifth metatarsal base, slight varus deformity of the hindfoot Symmetry: Swelling: yes. Redness: no. Ecchymosis: no Effusion: 0 Palpation: Warmth: no, Tenderness:dorsal midfoot, anterior ankle joint line. Lateral ankle and peroneal tendons ROM: Ankle- Normal. Strength: 5 Stability: Ligamentous instability: no Specialized Tests: negative Neurologic Status: Abnormal, no sensation below ankle due to neuropathy Vascular Status: abnormal; 1+ DP/PT Skin: Normal; well healed surgical incision over the 5th toe, no open wounds Bony dorsal prominence over the midfoot Xrays: none today * * *Final Report* * * DATE OF EXAM: Apr 25 2018 ?3:08PM ? WRX ? 5297 ?- ?XR ANKLE 3V AP/LAT/OBL RT ?/ PROCEDURE REASON: multiple diagnoses ?? ? * * * * Physician Interpretation * * * * ?HISTORY: 52-YEAR-OLD FEMALE WITH ? Pain in right foot ? . ?pain on the lateral side of the right foot mid-hidfoot area, for 1 week. (accession [id number]), Lateral right ankle pain after an injury 3 months ago. (accession [id number]) TECHNIQUE: XR FOOT 3V AP/LAT/OBL RT, XR ANKLE 3V AP/LAT/OBL RT ?? Laterality: ?RIGHT ?? Number of different views (projections): 3 COMPARISON: Right foot done on 07/12/2017 in right ankle done on 01/30/2014 RESULT: ?Right ankle: The ankle mortise is maintained. ?There is a small exostosis about the medial malleolus consistent with remote ligament avulsion which is healed. ?There are small calcifications plantar to the lateral malleolus consistent with remote ligament injuries. ?There is an ossicle plantar to the medial malleolus adjacent to the talus consistent with a remote ligament avulsion. ?Os trigonum is present. ?Calcaneal enthesophyte insertion of the Achilles tendon. 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 ?Remote healed fracture of the stump of the proximal fifth metatarsal. ?Cortical thickening of the second through fourth metatarsal diaphyses. ?Narrowing of the second and third tarsometatarsal joints and the fifth tarsometatarsal joint. ?Narrowing of the navicular medial cuneiform articulation. ?Calcification dorsal to the cuneiforms consistent with posttraumatic changes. ?Soft tissue swelling about the midfoot dorsally. MRI: none today * * *Final Report* * * DATE OF EXAM: Jun 11:00AM ? WRM ? 0164 ?- ?MRI ANKLE WO IVCON RT ?/ PROCEDURE REASON: multiple diagnoses ?? ? * * * * Physician Interpretation * * * * ?MRI Right Ankle INDICATION: Lateral sided ankle pain of the right ankle. Chronic in nature. Concern for talofibular injury of the right ankle. History of ulcer of the right foot. COMPARISON: None. TECHNIQUE: Multiplanar PD, T1 and T2 weighted images. RESULT: The exam is, otherwise secondary to motion. Anterior talofibular ligament: Attenuated and ill-defined without focal edema likely sequela of remote injury Posterior talofibular ligament: Within normal limits. Anterior-inferior tibiofibular ligament: Within normal limits. Posterior tibiofibular ligament: Within normal limits. Calcaneofibular ligament: Ill-defined, likely sequela of injury. Deltoid ligament: Attenuated and ill-defined, likely sequela of remote injury. Spring ligament: Thickening, likely chronic degenerative stress changes. Posterior tibial tendon: There is and tendinosis without tearing. Flexor digitorum longus tendon: Within normal limits. Flexor hallucis longus tendon: Within normal limits. Increased signal within the muscle, likely related to chronic strain. Peroneal tendons: Split tear of the peroneus brevis with associated tendinosis. Extensor tendons: Within normal limits. Achilles' tendon: Within normal limits. Bone marrow: There is postsurgical changes of distal fifth metatarsal amputation. There are degenerative changes of the tibiotalar joint with full thickness cartilage loss, most predominantly laterally with underlying cystic changes. There are severe degenerative and neuropathic changes at the navicular cuneiform and cuboid articulations as well all the visualized tarsometatarsal articulations with marrow edema and subchondral cystic change. Deformity of the distal fibula and medial malleolus at the attachment of the lateral and medial ligaments, likely from remote injury Talar dome: full thickness cartilage loss anterolaterally. Plantar fascia: Within normal limits. The tarsal tunnel and sinus tarsi are within normal limits. Joint fluid: ?No joint effusion or synovitis. There is soft tissue edema in the foot and to a lesser extent ankle. 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 Rx given. Discussed appropriate lacing options for her shoe. Discussed surgical options include midfoot fusion and tibiotalar fusion. Patient would like to try the nonoperative treatments for now. Follow up in 6 weeks for re-evaluation. Discussed diabetic control as well. HPI explored in detail with patient and edited as necessary. This note was partially generated using [employer] voice recognition system, and there may be some incorrect words, spellings, and punctuation that were not noted in checking the note before saving. Howard Andrews M.D. 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 Dx: E11.* ROPINIROLE 3 MG TABLET Take 1 tablet by mouth twice * MAGNESIUM OXIDE 400 MG (241.3* Take 1 tablet by mouth twice * DOXYCYCLINE MONOHYDRATE 100 M* Take 1 capsule by mouth twice* ACETAMINOPHEN 300 MG-CODEINE * OMEPRAZOLE 20 MG CAPSULE,JR* Take 1 capsule by mouth daily* ROSUVASTATIN 40 MG TABLET Take 1 tablet by mouth once d* PEN NEEDLE, DIABETIC 31 GAUGE* Use as directed four times da* ERGOCALCIFEROL (VITAMIN D2) 5* Take 1 capsule by mouth once * ALPHA LIPOIC ACID 600 MG CAPS* Take 600 mg by mouth once arnold* ASCORBIC ACID (VITAMIN C) 500* Take 1 tablet by mouth twice * BLOOD SUGAR DIAGNOSTIC STRIPS Test blood sugar(s) 3- 4 times* BLOOD SUGAR DIAGNOSTIC STRIPS Check blood sugar readings 2-* LANCETS Check blood sugar readings 2-* BLOOD-GLUCOSE METER KIT 1 Each as needed. LANCETS Test 2-3 times a day Problem List As Of Date 06/21/2018 Noted Resolved Reaction, adjustment, with depressed mood, prol*INVALID FOR* More... Diabetic polyneuropathy associated with type 2 *INVALID FOR* More... 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 Osteomyelitis (HCC) [M86.9] INVALID FOR* Priority: A More... Clostridium difficile infection [B96.89] INVALID FOR* Priority: C More... Urinary hesitancy [R39.11] INVALID FOR*05/30/2015 Priority: D More... SUMMARY INVALID FOR* Priority: Very Severe More... Urinary hesitancy [R39.11] INVALID FOR*06/04/2015 More... RLS (restless legs syndrome) [G25.81] INVALID FOR* More... Anxiety neurosis [F41.1] INVALID FOR* More... Positive urine drug screen [R82.5] INVALID FOR* More... Charcot foot due to diabetes mellitus (HCC) [E1*INVALID FOR* Encounter Status:Closed by HOWARD ANDREWS MD on 06/21/18 PROGRESS Observed: 06/21/2018 Status: COMPLETED Source: [place] 3:14 PM [facility] [place] REPOSITORY HNO ID: [id number] Author: Erica Santoro Service: (none) Author Type: Septic Tank Service Technician Type: Progress Notes Filed: 06/21/2018 3:18 PM Note Text: Will send a letter to the patient .(regular mail ) PROGRESS Observed: 06/19/2018 Status: COMPLETED Source: [place] 9:40 AM [facility] REPOSITORY HNO ID: [id number] Author: Erica Santoro Service: (none) Author Type: Septic Tank Service Technician Type: Progress Notes Filed: 06/21/2018 3:18 PM Note Text: Unable to leave a voice mail message mailbox is not setup. Erica Santoro MA PROGRESS Observed: 06/16/2018 Status: COMPLETED Source: [place] 2:41 PM [facility] [place] REPOSITORY HNO ID: [id number] Author: Erica Santoro Service: (none) Author Type: Septic Tank Service Technician Type: Progress Notes Filed: 06/21/2018 3:18 PM Note Text: Unable to leave a voice message, it is Not setup. Erica Santoro MA MRI ANKLE WO IVCON Observed: 06/13/2018 Status: F Source: [place] RT 11:00 AM [facility] [place] REPOSITORY * * *Final Report* * * DATE OF EXAM: Jun 13 2018 11:00AM Niru 0164 - MRI ANKLE WO IVCON RT / PROCEDURE REASON: multiple diagnoses * * * * Physician Interpretation * * * * MRI Right Ankle INDICATION: Lateral sided ankle pain of the right ankle. Chronic in nature. Concern for talofibular injury of the right ankle. History of ulcer of the right foot. COMPARISON: None. TECHNIQUE: Multiplanar PD, T1 and T2 weighted images. RESULT: The exam is, otherwise secondary to motion. Anterior talofibular ligament: Attenuated and ill-defined without focal edema likely sequela of remote injury Posterior talofibular ligament: Within normal limits. Anterior-inferior tibiofibular ligament: Within normal limits. Posterior tibiofibular ligament: Within normal limits. Calcaneofibular ligament: Ill-defined, likely sequela of injury. Deltoid ligament: Attenuated and ill-defined, likely sequela of remote injury. Spring ligament: Thickening, likely chronic degenerative stress changes. Posterior tibial tendon: There is and tendinosis without tearing. Flexor digitorum longus tendon: Within normal limits. Flexor hallucis longus tendon: Within normal limits. Increased signal within the muscle, likely related to chronic strain. Peroneal tendons: Split tear of the peroneus brevis with associated tendinosis. Extensor tendons: Within normal limits. Achilles' tendon: Within normal limits. Bone marrow: There is postsurgical changes of distal fifth metatarsal amputation. There are degenerative changes of the tibiotalar joint with full thickness cartilage loss, most predominantly laterally with underlying cystic changes. There are severe degenerative and neuropathic changes at the navicular cuneiform and cuboid articulations as well all the visualized tarsometatarsal articulations with marrow edema and subchondral cystic change. Deformity of the distal fibula and medial malleolus at the attachment of the lateral and medial ligaments, likely from remote injury Talar dome: full thickness cartilage loss anterolaterally. Plantar fascia: Within normal limits. The tarsal tunnel and sinus tarsi are within normal limits. Joint fluid: No joint effusion or synovitis. There is soft tissue edema in the foot and to a lesser extent ankle. IMPRESSION: 1. DEGENERATIVE CHANGES OF THE TIBIOTALAR JOINT LATERALLY, LIKELY POSTTRAUMATIC IN ETIOLOGY. 2. DEGENERATIVE AND NEUROPATHIC ARTHROPATHY AT THE MIDFOOT. 3. SPLIT TEAR OF THE PERONEUS BREVIS. 4. REMOTE ANKLE LIGAMENTOUS AREAS Mobile Lounge Driver Or Operator: WILLIAM Transcribe Date/Time: Jun 13 2018 11:21A Dictated by : ANNELISE LEWIS MD This examination was interpreted and the report reviewed and electronically signed by: MADIHA FORDE MD on Jun 13 2018 1:26PM EST [id number] PROGRESS Observed: 06/13/2018 Status: COMPLETED Source: [place] 10:54 AM [facility] REPOSITORY HNO ID: [id number] Author: Lilian Gamble (Rt) Service: (none) Author Type: Ground Crew Chief Type: Progress Notes Filed: 06/13/2018 10:54 AM Note Text: Radiology Service Progress Note PATIENT NAME: Diony Carrillo DATE OF SERVICE: June 13, 2018 TIME: 10:54 AM PATIENT IDENTITY VERIFICATION COMPLETED USING TWO (2) METHODS: Patient confirmed name verbally and Date of . PATIENT GENDER DATA: Female. status: : No status: NO. PATIENT RELEVANT IMPLANT DATA REVIEWED: Yes RADIOLOGY DEPARTMENT: MR; Exam(s) Completed: Lower MSK: Ankle/Hind Foot, right PERIPHERAL IV DATA: Not applicable SIGNED BY: RT Tye June 13, 2018 10:54 AM PROGRESS Observed: 06/13/2018 Status: COMPLETED Source: [place] 8:09 AM [facility] REPOSITORY HNO ID: [id number] Author: Erica Santoro Service: (none) Author Type: Septic Tank Service Technician Type: Progress Notes Filed: 06/21/2018 3:18 PM Note Text: [facility] CARE GAP REGISTRY DOCUMENTATION (OUTSIDE TEAMLET) Provider Action/FYI: Patient has appointment scheduled, needs lab ordered, needs Foot and Eye exam, Mammogram, IFOBT PSR Action/FYI: Call to remind patient to get labs Prior appointment Patient identified by name and date of . Last BP/Labs: Blood Pressure: Last 3 Encounter BP Readings: Date: BP: 06/10/2017 120/80 06/02/2017 104/70 03/08/2017 93/66 Lipids: Cholesterol, Total (mg/dL) Date Value 01/01/2016 388 02/20/2014 166 HDL Cholesterol (mg/dL) Date Value 01/01/2016 60 02/20/2014 49 LDL Cholesterol (mg/dL) Date Value 01/01/2016 264 02/20/2014 67 Triglyceride (mg/dL) Date Value 01/01/2016 322 02/20/2014 251 HGB A1C: Lab Results Component Value Date HBA1C 12.4 03/03/2017 HBA1C 11.2 11/26/2016 HBA1C 11.2 01/01/2016 TSH: TSH (uU/mL) Date Value 01/01/2016 2.950 ) ? Patient has the following care gap registry disease diagnosis:DM ? Patient has the following open care gaps:DM - Need Urine Albumin / NOT checked in last 12 months ? Needs dilated eye exam - HM overdue ? Has CrCl < 60ml/min and does NOT have Hemoglobin or Hematocrit in last 12 months ? Last HGBA1C is NOT under 9% ? Last office visit: 06/10/2017 ? Future office visit:Physical in Sep 2018 Erica Santoro MA PROGRESS Observed: 05/31/2018 Status: COMPLETED Source: [place] 11:22 AM [facility] REPOSITORY O ID: [id number] Author: Sendy Allen Service: (none) Author Type: Physician Type: Progress Notes Filed: 05/31/2018 11:27 AM Note Text: Follow up podiatric office visit for: Chief Complaint: This 52 year old who presents for follow up:right ankle pain. Patient also presents for follow-up right foot ulceration Patient has been doing the following since last visit: patient has been using boot but states the ankle is still causing her pain. She states any time she walks, there is pain. She has mri scheduled on June 13. She is here for follow-up ulcer of right foot. She had been applying santyl. She believes she is now healed. PAIN EVALUATION No data found. Hemoglobin A1C Date Value Ref Range Status 03/03/2017 12.4 (H) 4.3 - 5.6 % Final Comment: [place] [employer] guidelines indicate that patients with HgbA1c in the range 5.7-6.4% are at increased risk for development of diabetes, and intervention by lifestyle modification may be beneficial. HgbA1c greater or equal to 6.5% is considered diagnostic of diabetes. PCP: Alessandro Eric MD PAST MEDICAL HISTORY Diagnosis Date - Chronic depressive personality disorder - Degenerative disc disease - Diabetes mellitus without mention of complication Diabetes mellitus - Fallen arches (Broken) on both sides - Polyneuropathy in diabetes(357.2) - Restless legs syndrome (RLS) Current Outpatient Prescriptions: gabapentin (NEURONTIN) 800 mg tablet Take 1 tablet by mouth three times daily for 30 days. insulin aspart U-100 (NOVOLOG FLEXPEN U-100 INSULIN) 100 unit/mL inpn Inject 15 Units subcutaneously three times daily with meals. insulin detemir U-100 (LEVEMIR FLEXPEN) 100 unit/mL (3 mL) inpn injection Inject 30 Units subcutaneously daily before breakfast. Blood-Glucose Meter (ACCU-CHEK MEGAN CONNECT METER) misc 1 Units as directed. Dx: E11.40 collagenase (SANTYL) ointment Apply 1 application to affected area once daily. APPLY TO AFFECTED AREA collagenase (SANTYL) ointment Apply 1 application to affected area once daily. APPLY TO AFFECTED AREA rOPINIRole Hydrochloride 3 mg tablet Take 1 tablet by mouth twice daily. magnesium oxide (MAG-OX) 400 mg tablet Take 1 tablet by mouth twice daily. doxycycline monohydrate (MONODOX) 100 mg capsule Take 1 capsule by mouth twice daily. acetaminophen-codeine (TYLENOL-COD #3) 300-30 mg per tablet omeprazole (PRILOSEC) 20 mg capsule Take 1 capsule by mouth daily before breakfast. 1/2 hr before meal. rosuvastatin (CRESTOR) 40 mg tablet Take 1 tablet by mouth once daily. insulin needles, DISPOSABLE, (PEN NEEDLE) 31 gauge x 5/16 ndle Use as directed four times daily ergocalciferol, vitamin D2, (DRISDOL) 50,000 unit capsule Take 1 capsule by mouth once each week. Alpha Lipoic Acid 600 mg cap Take 600 mg by mouth once daily. ascorbic acid, vitamin C, (VITAMIN C) 500 mg tablet Take 1 tablet by mouth twice daily. Take with iron (ferrous sulfate). blood sugar diagnostic (ACCU-CHEK MEGAN) test strip Test blood sugar(s) 3-4 times daily. Dx: Type 1 DM - Uncontrolled E 10.65 Insulin: Yes blood sugar diagnostic (ACCU-CHEK MEGAN PLUS TEST STRP) test strip Check blood sugar readings 2-3 times daily and as needed. Insulin dependent. Dx: E11.40 Lancets (ACCU-CHEK MULTICLIX LANCET) lancets Check blood sugar readings 2-3 times daily. Insulin dependent. Dx: E11.40 Blood-Glucose Meter (BLOOD GLUCOSE MONITORING) monitoring kit 1 Each as needed. Lancets lancets Test 2-3 times a day No current facility-administered medications for this visit. ALLERGIES Allergen Reactions - Oxycontin [Oxycodon* itch - Penicillins Hives - Requip [Ropinirole] Intolerance Vomiting, panic attacks, itching PAST SURGICAL HISTORY Procedure Laterality Date - DELIVERY ONLY , low cervical - EGD W/O OR W/BRUSH/WASH 05/10/2012 EGD - LIGATE FALLOPIAN TUBE Tubal ligation - PAST SURGICAL HISTORY OF removal right 5th metatarsal - PICC LINE INSERT/CONSULT 06/14/2014 - REPAIR ROTATOR CUFF,ACUTE 1996 Rotator cuf repair right, Dr Alvarado - [facility]/CARPAL TUNNEL SURG 1996 Carpal tunnel decomp, right, Dr Alvarado - [facility] N/CARPAL TUNNEL SURG 2008 Carpal tunnel decomp, LEFT REVIEW OF SYSTEMS MUSCULOSKELETAL: right ankle pain Physical Exam: Constitutional: Pt is a well developed 52 year old female who is alert, oriented, cooperative and in no apparent distress. OBJECTIVE: NVSI unchanged from previous visit. Dermatological: Nails 1-4 b/l are normal. Webspaces clean and dry 1-3 b/l. Skin appears well hydrated and supple. good color, texture, turgor. No open lesions present. No callosities present. Prior ulceration to right foot is now healed Musculoskeletal/Orthopaedic: Patient has pain to palpation of right medial and lateral ankle. rom of right ankle is decreased and there is pain mmt of b/l lower extremity is 5/5 ASSESSMENT: (S93.491A) Sprain of anterior talofibular ligament of right ankle, initial encounter (primary encounter diagnosis) (M25.471) Swelling of ankle joint, right (L97.512) Ulcer of toe of right foot, with fat layer exposed ([facility]) PLAN: 1. History and physical examination completed today. 2. Discussed ongoing right ankle pain. Per patient, there is no improvement. I would continue with boot and await mri. I did discuss physical therapy. She states she has no way of getting to therapy. I did discuss doing home rom exercises against light resistance as tolerated. She may consider but at this time, has no means of doing this. I would recommend she try this. 3. Ulcer of right foot is now healed. Continue with lotion to feet daily and diabetic shoes to left foot. 4. F/u after mri. Sendy Allen DPM CNOV Observed: 05/31/2018 Status: COMPLETED Source: [place] 10:55 AM [facility] REPOSITORY Office Visit (PODIWS) DIONY CARRILLO ([id number]) 1965 F Date Time Provider Department 05/31/18 10:55 AM SENDY ALLEN PODIWS During your visit today, we recorded the following information about you: Sendy Allen DPM 05/31/2018 11:27 AM Signed Follow up podiatric office visit for: Chief Complaint: This 52 year old who presents for follow up:right ankle pain. Patient also presents for follow-up right foot ulceration Patient has been doing the following since last visit: patient has been using boot but states the ankle is still causing her pain. She states any time she walks, there is pain. She has mri scheduled on June 13. She is here for follow-up ulcer of right foot. She had been applying santyl. She believes she is now healed. PAIN EVALUATION No data found. Hemoglobin A1C Date Value Ref Range Status 03/03/2017 12.4 (H) 4.3 - 5.6 % Final Comment: [place] Diabetes [employer] guidelines indicate that patients with HgbA1c in the range 5.7-6.4% are at increased risk for development of diabetes, and intervention by lifestyle modification may be beneficial. HgbA1c greater or equal to 6.5% is considered diagnostic of diabetes. PCP: Alessandro Eric MD PAST MEDICAL HISTORY Diagnosis Date - Chronic depressive personality disorder - Degenerative disc disease - Diabetes mellitus without mention of complication Diabetes mellitus - Fallen arches (Broken) on both sides - Polyneuropathy in diabetes(357.2) - Restless legs syndrome (RLS) Current Outpatient Prescriptions: gabapentin (NEURONTIN) 800 mg tablet Take 1 tablet by mouth three times daily for 30 days. insulin aspart U-100 (NOVOLOG FLEXPEN U-100 INSULIN) 100 unit/mL inpn Inject 15 Units subcutaneously three times daily with meals. insulin detemir U-100 (LEVEMIR FLEXPEN) 100 unit/mL (3 mL) inpn injection Inject 30 Units subcutaneously daily before breakfast. Blood-Glucose Meter (ACCU-CHEK MEGAN CONNECT METER) misc 1 Units as directed. Dx: E11.40 collagenase (SANTYL) ointment Apply 1 application to affected area once daily. APPLY TO AFFECTED AREA collagenase (SANTYL) ointment Apply 1 application to affected area once daily. APPLY TO AFFECTED AREA rOPINIRole Hydrochloride 3 mg tablet Take 1 tablet by mouth twice daily. magnesium oxide (MAG-OX) 400 mg tablet Take 1 tablet by mouth twice daily. doxycycline monohydrate (MONODOX) 100 mg capsule Take 1 capsule by mouth twice daily. acetaminophen-codeine (TYLENOL-COD #3) 300-30 mg per tablet omeprazole (PRILOSEC) 20 mg capsule Take 1 capsule by mouth daily before breakfast. 1/2 hr before meal. rosuvastatin (CRESTOR) 40 mg tablet Take 1 tablet by mouth once daily. insulin needles, DISPOSABLE, (PEN NEEDLE) 31 gauge x 5/16 ndle Use as directed four times daily ergocalciferol, vitamin D2, (DRISDOL) 50,000 unit capsule Take 1 capsule by mouth once each week. Alpha Lipoic Acid 600 mg cap Take 600 mg by mouth once daily. ascorbic acid, vitamin C, (VITAMIN C) 500 mg tablet Take 1 tablet by mouth twice daily. Take with iron (ferrous sulfate). blood sugar diagnostic (ACCU-CHEK MEGAN) test strip Test blood sugar(s) 3-4 times daily. Dx: Type 1 DM - Uncontrolled E 10.65 Insulin: Yes blood sugar diagnostic (ACCU-CHEK MEGAN PLUS TEST STRP) test strip Check blood sugar readings 2-3 times daily and as needed. Insulin dependent. Dx: E11.40 Lancets (ACCU-CHEK MULTICLIX LANCET) lancets Check blood sugar readings 2-3 times daily. Insulin dependent. Dx: E11.40 Blood-Glucose Meter (BLOOD GLUCOSE MONITORING) monitoring kit 1 Each as needed. Lancets lancets Test 2-3 times a day No current facility-administered medications for this visit. ALLERGIES Allergen Reactions - Oxycontin [Oxycodon* itch - Penicillins Hives - Requip [Ropinirole] Intolerance Vomiting, panic attacks, itching PAST SURGICAL HISTORY Procedure Laterality Date - DELIVERY ONLY , low cervical - EGD W/O OR W/BRUSH/WASH 05/10/2012 EGD - LIGATE FALLOPIAN TUBE Tubal ligation - PAST SURGICAL HISTORY OF removal right 5th metatarsal - PICC LINE INSERT/CONSULT 06/14/2014 - REPAIR ROTATOR CUFF,ACUTE 1996 Rotator cuf repair right, Dr Alvarado - [facility]/CARPAL TUNNEL SURG 1996 Carpal tunnel decomp, right, Dr Alvarado - [facility]/CARPAL TUNNEL SURG 2008 Carpal tunnel decomp, LEFT REVIEW OF SYSTEMS MUSCULOSKELETAL: right ankle pain Physical Exam: Constitutional: Pt is a well developed 52 year old female who is alert, oriented, cooperative and in no apparent distress. OBJECTIVE: NVSI unchanged from previous visit. Dermatological: Nails 1-4 b/l are normal. Webspaces clean and dry 1-3 b/l. Skin appears well hydrated and supple. good color, texture, turgor. No open lesions present. No callosities present. Prior ulceration to right foot is now healed Musculoskeletal/Orthopaedic: Patient has pain to palpation of right medial and lateral ankle. rom of right ankle is decreased and there is pain mmt of b/l lower extremity is 5/5 ASSESSMENT: (S93.981A) Sprain of anterior talofibular ligament of right ankle, initial encounter (primary encounter diagnosis) (M25.471) Swelling of ankle joint, right (L97.512) Ulcer of toe of right foot, with fat layer exposed (HCC) PLAN: 1. History and physical examination completed today. 2. Discussed ongoing right ankle pain. Per patient, there is no improvement. I would continue with boot and await mri. I did discuss physical therapy. She states she has no way of getting to therapy. I did discuss doing home rom exercises against light resistance as tolerated. She may consider but at this time, has no means of doing this. I would recommend she try this. 3. Ulcer of right foot is now healed. Continue with lotion to feet daily and diabetic shoes to left foot. 4. F/u after mri. Sendy Allen DPM Referring Provider: SENDY ALLEN [[id number]] Allergies As of Date: 05/31/2018 Noted Allergy Reaction OXYCONTIN (OXYCODONE HCL) 09/27/2007 Comments: itch PENICILLINS 06/02/2007 4 - Hives REQUIP (ROPINIROLE) 11/18/2015 5 - Intolerance Comments: Vomiting, panic attacks, itching Date Reviewed: 05/31/2018 Reviewed by: Mary King Ma - Fully Assessed Reason for Visit: Follow Up [171] Primary Visit Diagnosis:Sprain of anterior talofibular ligament of right ankle, initial encounter [S93.491A] Other Visit Diagnoses:Swelling of ankle joint, right [M25.471] Ulcer of toe of right foot, with fat layer exposed (HCC) [L97.512] Prescriptions as of 05/31/2018 Sig: GABAPENTIN 800 MG TABLET Take 1 tablet by mouth three * INSULIN ASPART U-100 100 UNI* Inject 15 Units subcutaneousl* INSULIN DETEMIR (U-100) 100 U* Inject 30 Units subcutaneousl* BLOOD-GLUCOSE METER 1 Units as directed. Dx: E11.* COLLAGENASE CLOSTRIDIUM HISTO* Apply 1 application to affect* COLLAGENASE CLOSTRIDIUM HISTO* Apply 1 application to affect* ROPINIROLE 3 MG TABLET Take 1 tablet by mouth twice * MAGNESIUM OXIDE 400 MG (241.3* Take 1 tablet by mouth twice * DOXYCYCLINE MONOHYDRATE 100 M* Take 1 capsule by mouth twice* ACETAMINOPHEN 300 MG-CODEINE * OMEPRAZOLE 20 MG CAPSULE,JR* Take 1 capsule by mouth daily* ROSUVASTATIN 40 MG TABLET Take 1 tablet by mouth once d* PEN NEEDLE, DIABETIC 31 GAUGE* Use as directed four times da* ERGOCALCIFEROL (VITAMIN D2) 5* Take 1 capsule by mouth once * ALPHA LIPOIC ACID 600 MG CAPS* Take 600 mg by mouth once arnlod* ASCORBIC ACID (VITAMIN C) 500* Take 1 tablet by mouth twice * BLOOD SUGAR DIAGNOSTIC STRIPS Test blood sugar(s) 3- 4 times* BLOOD SUGAR DIAGNOSTIC STRIPS Check blood sugar readings 2-* LANCETS Check blood sugar readings 2-* BLOOD-GLUCOSE METER KIT 1 Each as needed. LANCETS Test 2-3 times a day Problem List As Of Date 05/31/2018 Noted Resolved Reaction, adjustment, with depressed mood, prol*INVALID FOR* More... NEUROPATHY IN DIABETES [E11.42] INVALID FOR* More... 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 Osteomyelitis (HCC) [M86.9] INVALID FOR* Priority: A More... Clostridium difficile infection [B96.89] INVALID FOR* Priority: C More... Urinary hesitancy [R39.11] INVALID FOR*05/30/2015 Priority: D More... SUMMARY INVALID FOR* Priority: Very Severe More... Urinary hesitancy [R39.11] INVALID FOR*06/04/2015 More... RLS (restless legs syndrome) [G25.81] INVALID FOR* More... Anxiety neurosis [F41.1] INVALID FOR* More... Positive urine drug screen [R82.5] INVALID FOR* More... Encounter Status:Closed by SENDY ALLEN DPM on 05/31/18 [id number] Observed: 05/24/2018 Status: COMPLETED Source: [place] 12:00 AM [facility] REPOSITORY Patient Outreach (FAMPWS) DIONY CARRILLO ([id number]) 1965 F Date Time Provider Department 05/24/18 ERICA SANTORO) ROSINAPWS During your visit today, we recorded the following information about you: Erica Santoro MA 06/21/2018 3:18 PM Signed [facility] CARE GAP REGISTRY DOCUMENTATION (OUTSIDE TEAMLET) Provider Action/FYI: Patient has appointment scheduled, needs lab ordered, needs Foot and Eye exam, Mammogram, IFOBT PSR Action/FYI: Call to remind patient to get labs Prior appointment Patient identified by name and date of . Last BP/Labs: Blood Pressure: Last 3 Encounter BP Readings: Date: BP: 06/10/2017 120/80 06/02/2017 104/70 03/08/2017 93/66 Lipids: Cholesterol, Total (mg/dL) Date Value 01/01/2016 388 02/20/2014 166 HDL Cholesterol (mg/dL) Date Value 01/01/2016 60 02/20/2014 49 LDL Cholesterol (mg/dL) Date Value 01/01/2016 264 02/20/2014 67 Triglyceride (mg/dL) Date Value 01/01/2016 322 02/20/2014 251 HGB A1C: Lab Results Component Value Date HBA1C 12.4 03/03/2017 HBA1C 11.2 11/26/2016 HBA1C 11.2 01/01/2016 TSH: TSH (uU/mL) Date Value 01/01/2016 2.950 ) ? Patient has the following care gap registry disease diagnosis:DM ? Patient has the following open care gaps:DM - Need Urine Albumin / NOT checked in last 12 months ? Needs dilated eye exam - HM overdue ? Has CrCl < 60ml/min and does NOT have Hemoglobin or Hematocrit in last 12 months ? Last HGBA1C is NOT under 9% ? Last office visit: 06/10/2017 ? Future office visit:Physical in Sep 2018 PEBBLES Andrew MA 06/21/2018 3:18 PM Signed Unable to leave a voice message, it is Not setup. PEBBLES Andrew MA 06/21/2018 3:18 PM Signed Unable to leave a voice mail message mailbox is not setup. PEBBLES Andrew MA 06/21/2018 3:18 PM Signed Will send a letter to the patient .(regular mail ) Allergies As of Date: 05/24/2018 Noted Allergy Reaction OXYCONTIN (OXYCODONE HCL) 09/27/2007 Comments: itch PENICILLINS 06/02/2007 4 - Hives REQUIP (ROPINIROLE) 11/18/2015 5 - Intolerance Comments: Vomiting, panic attacks, itching Date Reviewed: 05/17/2018 Reviewed by: Cecy Carbajal RN - Fully Assessed Reason for Visit: [facility]/Care Gap Outreach [[id number]] Primary Visit Diagnosis:Uncontrolled type 2 diabetes with neuropathy (HCC) [E11.40, E11.65] Other Visit Diagnoses:Screening for hyperlipidemia [Z13.220] Low vitamin D level [R79.89] Encounter for screening fecal occult blood testing [Z12.11] Encounter for screening mammogram for breast cancer [Z12.31] Vitamin D deficiency [E55.9] Order(s):HGB A1C [[id number]] Order #: [id number] FUTURE ALBUMIN/CREAT RATIO RND UR [SQUACR] Order #: [id number] FUTURE COMP METABOLIC PANEL [SQCMP] Order #: [id number] FUTURE LIPID PANEL BASIC [SQLIPB] Order #: [id number] FUTURE CBC + DIFF [SQCBCDIF] Order #: [id number] FUTURE FECAL OCCULT BLOOD TEST [SQIFOBT] Order #: [id number] FUTURE LOY SCREENING [[id number]] Order #: [id number] FUTURE VITAMIN D 25 HYDROXY [SQVITD] Order #: [id number] FUTURE Prescriptions as of 05/24/2018 Sig: GABAPENTIN 800 MG TABLET Take 1 tablet by mouth three * INSULIN ASPART U-100 100 UNI* Inject 15 Units subcutaneousl* INSULIN DETEMIR (U-100) 100 U* Inject 30 Units subcutaneousl* BLOOD-GLUCOSE METER 1 Units as directed. Dx: E11.* COLLAGENASE CLOSTRIDIUM HISTO* Apply 1 application to affect* COLLAGENASE CLOSTRIDIUM HISTO* Apply 1 application to affect* MELOXICAM 15 MG TABLET Take 1 tablet by mouth once d* ROPINIROLE 3 MG TABLET Take 1 tablet by mouth twice * MAGNESIUM OXIDE 400 MG (241.3* Take 1 tablet by mouth twice * DOXYCYCLINE MONOHYDRATE 100 M* Take 1 capsule by mouth twice* ACETAMINOPHEN 300 MG-CODEINE * OMEPRAZOLE 20 MG CAPSULE,JR* Take 1 capsule by mouth daily* ROSUVASTATIN 40 MG TABLET Take 1 tablet by mouth once d* PEN NEEDLE, DIABETIC 31 GAUGE* Use as directed four times da* ERGOCALCIFEROL (VITAMIN D2) 5* Take 1 capsule by mouth once * ALPHA LIPOIC ACID 600 MG CAPS* Take 600 mg by mouth once arnold* ASCORBIC ACID (VITAMIN C) 500* Take 1 tablet by mouth twice * BLOOD SUGAR DIAGNOSTIC STRIPS Test blood sugar(s) 3- 4 times* BLOOD SUGAR DIAGNOSTIC STRIPS Check blood sugar readings 2-* LANCETS Check blood sugar readings 2-* BLOOD-GLUCOSE METER KIT 1 Each as needed. LANCETS Test 2-3 times a day Problem List As Of Date 05/24/2018 Noted Resolved Reaction, adjustment, with depressed mood, prol*INVALID FOR* More... NEUROPATHY IN DIABETES [E11.42] INVALID FOR* More... 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 Osteomyelitis (HCC) [M86.9] INVALID FOR* Priority: A More... Clostridium difficile infection [B96.89] INVALID FOR* Priority: C More... Urinary hesitancy [R39.11] INVALID FOR*05/30/2015 Priority: D More... SUMMARY INVALID FOR* Priority: Very Severe More... Urinary hesitancy [R39.11] INVALID FOR*06/04/2015 More... RLS (restless legs syndrome) [G25.81] INVALID FOR* More... Anxiety neurosis [F41.1] INVALID FOR* More... Positive urine drug screen [R82.5] INVALID FOR* More... Follow-up and Disposition History Recorded Letter Text [facility] Alessandro Vaughn MD [address], [place] [address] Dear Diony Carrillo Your health care is very important to us. Our records indicate that you may be due for a diabetic eye exam. If you have had a diabetic eye exam within the last year, please have your records sent to us so that we may update your medical records. There is a medical records of release of information included in this letter. Please take the release to your eye doctor for future appointments to have your records forwarded to us. Important facts about diabetic eye exams Diabetic retinal exams should be done yearly for all patients with a diagnosis of diabetes. Risks such as diabetic retinopathy can be reduced with blood glucose control and early detection of potential problems. Diabetic retinopathy is damage to the small blood vessels in the retina that can lead to blindness Thank you, Alessandro Vaughn MD Letter Text Family Medicine [facility] [address] [facility] [address] Dept: [phone] rEica Santoro MA, Population Health M.A. June 21, 2018 Diony Carrillo [address] [facility] [address] Dear Ms. Carrillo In an effort to serve your healthcare needs, it has come to the attention of Alessandro Eric MD, your Primary Care Provider, that you are overdue for routine health care. We've attempted to contact you and have been unsuccessful. Please call the office at [phone] to schedule an appointment for Follow Up. In addition, you are due for the following health maintenance(s) Health Maintenance Due: ANNUAL PCP TEAM CHRONIC DISEASE VISIT due on 1983 DTAP,TDAP,TD(1 - Tdap) due on 03/11/2010 DILATED RETINAL EXAM due on 03/08/2014 COLORECTAL CANCER SCREENING,SEE MODIFIER due on 2015 MAMMOGRAM due on 03/12/2016 URINE ALBUMIN:CREATININE RATIO due on 09/29/2016 LDL CHOLESTEROL due on 12/31/2016 PAP EVERY 5 YEARS due on 02/20/2017 HBA1C due on 06/03/2017 DIABETIC FOOT EXAM due on 12/22/2017 INFLUENZA(1) due on 06/10/2018 If any of these routine health care items were completed by an outside facility, please have that office fax the results to [phone] Attn: Alessandro Eric MD or bring the records with you to your appointment. We will gladly update your record. If you have any questions, please feel free to call the office at [phone] or message us via [employer]. Thank you for choosing the [facility]. Sincerely, Erica Santoro MA, Population Health M.A. (electronically signed to expedite mailing) Encounter Status:Closed by ERICA SANTORO on 06/21/18 PROGRESS Observed: 05/17/2018 Status: COMPLETED Source: [place] 3:11 PM [facility] REPOSITORY HNO ID: [id number] Author: Sendy Allen Service: (none) Author Type: Physician Type: Progress Notes Filed: 05/18/2018 12:44 PM Note Text: ? Sendy Allen DPM Department of Podiatry [address] [place] [address] Dept: [phone] Dept 05/17/2018 Initial Podiatric Office Visit: HPI: Diony Carrillo is a 52 year old female. Patient presents for follow up of R ankle sprain. Patient complains of pain that increases with her activity level. Pain is rated at 3-9/10, and described as aching. She c/o mild swelling and hearing a crunching sound when she walks. She has not been wearing a boot as advised at last office visit. She does not think she needs to wear boot if foot is not fractured. Patient is a diabetic but did not check her blood sugar today. She has new sore of right midfoot but thinks it is from her shoe. She denies n/v/f/c. She is concerned that left 1st and 2nd toes are rubbing causing friction. 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 insulin aspart U-100 (NOVOLOG FLEXPEN U-100 INSULIN) 100 unit/mL inpn Inject 15 Units subcutaneously three times daily with meals. insulin detemir U-100 (LEVEMIR FLEXPEN) 100 unit/mL (3 mL) inpn injection Inject 30 Units subcutaneously daily before breakfast. Blood-Glucose Meter (ACCU-CHEK MEGAN CONNECT METER) misc 1 Units as directed. Dx: E11.40 meloxicam (MOBIC) 15 mg tablet Take 1 tablet by mouth once daily. rOPINIRole Hydrochloride 3 mg tablet Take 1 tablet by mouth twice daily. magnesium oxide (MAG-OX) 400 mg tablet Take 1 tablet by mouth twice daily. acetaminophen-codeine (TYLENOL-COD #3) 300-30 mg per tablet omeprazole (PRILOSEC) 20 mg capsule Take 1 capsule by mouth daily before breakfast. 1/2 hr before meal. rosuvastatin (CRESTOR) 40 mg tablet Take 1 tablet by mouth once daily. insulin needles, DISPOSABLE, (PEN NEEDLE) 31 gauge x 5/16 ndle Use as directed four times daily ergocalciferol, vitamin D2, (DRISDOL) 50,000 unit capsule Take 1 capsule by mouth once each week. Alpha Lipoic Acid 600 mg cap Take 600 mg by mouth once daily. ascorbic acid, vitamin C, (VITAMIN C) 500 mg tablet Take 1 tablet by mouth twice daily. Take with iron (ferrous sulfate). blood sugar diagnostic (ACCU-CHEK MEGAN) test strip Test blood sugar(s) 3-4 times daily. Dx: Type 1 DM - Uncontrolled E 10.65 Insulin: Yes blood sugar diagnostic (ACCU-CHEK MEGAN PLUS TEST STRP) test strip Check blood sugar readings 2-3 times daily and as needed. Insulin dependent. Dx: E11.40 Lancets (ACCU-CHEK MULTICLIX LANCET) lancets Check blood sugar readings 2-3 times daily. Insulin dependent. Dx: E11.40 Blood-Glucose Meter (BLOOD GLUCOSE MONITORING) monitoring kit 1 Each as needed. Lancets lancets Test 2-3 times a day doxycycline monohydrate (MONODOX) 100 mg capsule Take 1 capsule by mouth twice daily. No current facility-administered medications for this visit. ALLERGIES Allergen Reactions - Oxycontin [Oxycodon* itch - Penicillins Hives - Requip [Ropinirole] Intolerance Vomiting, panic attacks, itching PAST SURGICAL HISTORY Procedure Laterality Date - DELIVERY ONLY , low cervical - EGD W/O OR W/BRUSH/WASH 05/10/2012 EGD - LIGATE FALLOPIAN TUBE Tubal ligation - PAST SURGICAL HISTORY OF removal right 5th metatarsal - PICC LINE INSERT/CONSULT 06/14/2014 - REPAIR ROTATOR CUFF,ACUTE 1996 Rotator cuf repair right, Dr Alvarado - [facility] N/CARPAL TUNNEL SURG 1996 Carpal tunnel decomp, right, Dr Alvarado - [facility] N/CARPAL TUNNEL SURG 2008 Carpal tunnel decomp, LEFT FAMILY HISTORY Problem Relation Age of Onset - Hypertension Mother - Diabetes Mother - Stroke Mother - Diabetes Sister - Diabetes Brother X-3 - Heart Brother X-3 - Breast Cancer Paternal Aunt x5 - Cancer Brother testicular, Social History Marital status: Single Spouse name: Maximus Years of education: 13 Number of children: 2 Occupational History 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 EYES: No diplopia or blurry vision. CARDIOVASCULAR: No chest pain, dyspnea, palpitations, orthopnea, PND, ankle edema. PULM: No dyspnea, unexplained cough. GI: No dysphagia/odynophagia, problematic reflux, constipation, diarrhea, changes in stool habits, hematochezia, melena. : No new urinary complaints, including dysuria, gross hematuria or pyuria. NEURO: No new balance problems, peripheral weakness/paresthesias or numbness of concern. MUSC-SKEL: Pain of right ankle PSY: No concerns regarding depression, anxiety or panic. INTEGUMENTARY: No new skin changes (rash, new or changing mole, new growth) Physical Exam: Constitutional: Pt is a well developed 52 year old female who is alert, oriented and cooperative Eyes: Following during examination. No redness or drainage. Respiratory: RR normal and nonlabored. Even breathing. No evidence of distress or shortness of breath. Psychology: Patient is engaged during conversation. Normal affect and mood. Does not appear depressed or anxious during encounter. Vascular: Dorsalis pedis and posterior tibial pulses palpable as b/l Capillary Fill time < 5 seconds to digits 1-4 b/l Skin temperature warm to warm proximal to distal b/l Hair growth present to digits Neurological: absent light touch/epicritic sensation Vibratory sensation absent to hallux b/l absent protective sensation, significant neurological deficits Dermatological: Nails 1-5 b/l appear Normal. Webspaces clean and dry 1-4 b/l. Skin appears well hydrated and supple. good color, texture, turgor. Callosities present right 3rd metatarsal. No ulceration following debridement of plantar callus. There is dorsal foot ulceration of right foot. Eschar was removed and there is 0.6 cm diameter ulceration with no redness, no signs of infection. No ulceration of left foot. Musculoskeletal/Orthopaedic: Patient has pain to palpation of right lateral ankle Right lateral ankle is swollen. 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 +5/5 muscle strength dorsiflexion, plantarflexion, inversion, eversion b/l Radiographs: xrays of right foot and ankle ankle reviewed. No acute fracture noted. 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 There is arthritis of right midfoot. ASSESSMENT: (M25.471) Swelling of ankle joint, right (primary encounter diagnosis) (S93.491A) Sprain of anterior talofibular ligament of right ankle, initial encounter (L97.512) Ulcer of toe of right foot, with fat layer exposed ([facility]) (M25.571, G89.29) Chronic pain of right ankle (E11.49) Other diabetic neurological complication associated with type 2 diabetes mellitus ([facility]) PLAN: 1. History and physical examination performed. 2. Patient was examined and informed of current findings 3. Discussed right ankle pain. Last office visit, recommended boot but patient elected not to use. Informed patient that she likely has sprain and immobilization would be of benefit. She is going to be more compliant. At night while sleeping, she can wear ankle brace. I did have discussion regarding possible charcot. I suspect more ankle sprain and less that of charcot. I did discuss casting but she again declined. 4. Given her chronic pain and past remote injury of ankle, recommend mri for further assessment of ankle 5. Discussed new ulceration of right foot. Sharp debridement of all nonviable tissue was performed. Debridement performed with 15 blade. Recommend boot and use of santyl daily. 6. Callus debrided to plantar foot with 15 blade as courtesy. 7. f/u in 2 weeks Sendy Allen DPM CNOV Observed: 05/17/2018 Status: COMPLETED Source: [place] 2:55 PM [facility] REPOSITORY Office Visit (PODIWS) DIONY CARRILLO ([id number]) 1965 F Date Time Provider Department 05/17/18 2:55 PM SENDY ALLEN PODCLOITLDE During your visit today, we recorded the following information about you: Sendy Allen DPM 05/18/2018 12:44 PM Signed ? Sendy Allen DPM Department of Podiatry [address] [place] [address] Dept: [phone] Dept 05/17/2018 Initial Podiatric Office Visit: HPI: Diony Carrillo is a 52 year old female. Patient presents for follow up of R ankle sprain. Patient complains of pain that increases with her activity level. Pain is rated at 3-9/10, and described as aching. She c/o mild swelling and hearing a crunching sound when she walks. She has not been wearing a boot as advised at last office visit. She does not think she needs to wear boot if foot is not fractured. Patient is a diabetic but did not check her blood sugar today. She has new sore of right midfoot but thinks it is from her shoe. She denies n/v/f/c. She is concerned that left 1st and 2nd toes are rubbing causing friction. 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 insulin aspart U-100 (NOVOLOG FLEXPEN U-100 INSULIN) 100 unit/mL inpn Inject 15 Units subcutaneously three times daily with meals. insulin detemir U-100 (LEVEMIR FLEXPEN) 100 unit/mL (3 mL) inpn injection Inject 30 Units subcutaneously daily before breakfast. Blood-Glucose Meter (ACCU-CHEK MEGAN CONNECT METER) misc 1 Units as directed. Dx: E11.40 meloxicam (MOBIC) 15 mg tablet Take 1 tablet by mouth once daily. rOPINIRole Hydrochloride 3 mg tablet Take 1 tablet by mouth twice daily. magnesium oxide (MAG-OX) 400 mg tablet Take 1 tablet by mouth twice daily. acetaminophen-codeine (TYLENOL-COD #3) 300-30 mg per tablet omeprazole (PRILOSEC) 20 mg capsule Take 1 capsule by mouth daily before breakfast. 1/2 hr before meal. rosuvastatin (CRESTOR) 40 mg tablet Take 1 tablet by mouth once daily. insulin needles, DISPOSABLE, (PEN NEEDLE) 31 gauge x 5/16 ndle Use as directed four times daily ergocalciferol, vitamin D2, (DRISDOL) 50,000 unit capsule Take 1 capsule by mouth once each week. Alpha Lipoic Acid 600 mg cap Take 600 mg by mouth once daily. ascorbic acid, vitamin C, (VITAMIN C) 500 mg tablet Take 1 tablet by mouth twice daily. Take with iron (ferrous sulfate). blood sugar diagnostic (ACCU-CHEK MEGAN) test strip Test blood sugar(s) 3-4 times daily. Dx: Type 1 DM - Uncontrolled E 10.65 Insulin: Yes blood sugar diagnostic (ACCU-CHEK MEGAN PLUS TEST STRP) test strip Check blood sugar readings 2-3 times daily and as needed. Insulin dependent. Dx: E11.40 Lancets (ACCU-CHEK MULTICLIX LANCET) lancets Check blood sugar readings 2-3 times daily. Insulin dependent. Dx: E11.40 Blood-Glucose Meter (BLOOD GLUCOSE MONITORING) monitoring kit 1 Each as needed. Lancets lancets Test 2-3 times a day doxycycline monohydrate (MONODOX) 100 mg capsule Take 1 capsule by mouth twice daily. No current facility-administered medications for this visit. ALLERGIES Allergen Reactions - Oxycontin [Oxycodon* itch - Penicillins Hives - Requip [Ropinirole] Intolerance Vomiting, panic attacks, itching PAST SURGICAL HISTORY Procedure Laterality Date - DELIVERY ONLY , low cervical - EGD W/O OR W/BRUSH/WASH 05/10/2012 EGD - LIGATE FALLOPIAN TUBE Tubal ligation - PAST SURGICAL HISTORY OF removal right 5th metatarsal - PICC LINE INSERT/CONSULT 06/14/2014 - REPAIR ROTATOR CUFF,ACUTE 1996 Rotator cuf repair right, Dr Alvarado - [facility] N/CARPAL TUNNEL SURG 1996 Carpal tunnel decomp, right, Dr Alvarado - [facility] N/CARPAL TUNNEL SURG 2008 Carpal tunnel decomp, LEFT FAMILY HISTORY Problem Relation Age of Onset - Hypertension Mother - Diabetes Mother - Stroke Mother - Diabetes Sister - Diabetes Brother X-3 - Heart Brother X-3 - Breast Cancer Paternal Aunt x5 - Cancer Brother testicular, Social History Marital status: Single Spouse name: Maximus Years of education: 13 Number of children: 2 Occupational History 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 EYES: No diplopia or blurry vision. CARDIOVASCULAR: No chest pain, dyspnea, palpitations, orthopnea, PND, ankle edema. PULM: No dyspnea, unexplained cough. GI: No dysphagia/odynophagia, problematic reflux, constipation, diarrhea, changes in stool habits, hematochezia, melena. : No new urinary complaints, including dysuria, gross hematuria or pyuria. NEURO: No new balance problems, peripheral weakness/paresthesias or numbness of concern. MUSC-SKEL: Pain of right ankle PSY: No concerns regarding depression, anxiety or panic. INTEGUMENTARY: No new skin changes (rash, new or changing mole, new growth) Physical Exam: Constitutional: Pt is a well developed 52 year old female who is alert, oriented and cooperative Eyes: Following during examination. No redness or drainage. Respiratory: RR normal and nonlabored. Even breathing. No evidence of distress or shortness of breath. Psychology: Patient is engaged during conversation. Normal affect and mood. Does not appear depressed or anxious during encounter. Vascular: Dorsalis pedis and posterior tibial pulses palpable as b/l Capillary Fill time < 5 seconds to digits 1-4 b/l Skin temperature warm to warm proximal to distal b/l Hair growth present to digits Neurological: absent light touch/epicritic sensation Vibratory sensation absent to hallux b/l absent protective sensation, significant neurological deficits Dermatological: Nails 1-5 b/l appear Normal. Webspaces clean and dry 1-4 b/l. Skin appears well hydrated and supple. good color, texture, turgor. Callosities present right 3rd metatarsal. No ulceration following debridement of plantar callus. There is dorsal foot ulceration of right foot. Eschar was removed and there is 0.6 cm diameter ulceration with no redness, no signs of infection. No ulceration of left foot. Musculoskeletal/Orthopaedic: Patient has pain to palpation of right lateral ankle Right lateral ankle is swollen. 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 +5/5 muscle strength dorsiflexion, plantarflexion, inversion, eversion b/l Radiographs: xrays of right foot and ankle ankle reviewed. No acute fracture noted. 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 There is arthritis of right midfoot. ASSESSMENT: (M25.471) Swelling of ankle joint, right (primary encounter diagnosis) (S93.491A) Sprain of anterior talofibular ligament of right ankle, initial encounter (L97.512) Ulcer of toe of right foot, with fat layer exposed ([facility]) (M25.571, G89.29) Chronic pain of right ankle (E11.49) Other diabetic neurological complication associated with type 2 diabetes mellitus ([facility]CC) PLAN: 1. History and physical examination performed. 2. Patient was examined and informed of current findings 3. Discussed right ankle pain. Last office visit, recommended boot but patient elected not to use. Informed patient that she likely has sprain and immobilization would be of benefit. She is going to be more compliant. At night while sleeping, she can wear ankle brace. I did have discussion regarding possible charcot. I suspect more ankle sprain and less that of charcot. I did discuss casting but she again declined. 4. Given her chronic pain and past remote injury of ankle, recommend mri for further assessment of ankle 5. Discussed new ulceration of right foot. Sharp debridement of all nonviable tissue was performed. Debridement performed with 15 blade. Recommend boot and use of santyl daily. 6. Callus debrided to plantar foot with 15 blade as courtesy. 7. f/u in 2 weeks BRITTANIE Stark RN 05/17/2018 3:51 PM Signed Apply Santyl daily Wear the boot on your R foot. It is ok to wear an ankle brace at night. Schedule your MRI. Referring Provider: SENDY ALLEN [[id number]] Allergies As of Date: 05/17/2018 Noted Allergy Reaction OXYCONTIN (OXYCODONE HCL) 09/27/2007 Comments: itch PENICILLINS 06/02/2007 4 - Hives REQUIP (ROPINIROLE) 11/18/2015 5 - Intolerance Comments: Vomiting, panic attacks, itching Date Reviewed: 05/17/2018 Reviewed by: Cecy Carbajal RN - Fully Assessed Reason for Visit: Follow Up [171] Primary Visit Diagnosis:Swelling of ankle joint, right [M25.471] Other Visit Diagnoses:Sprain of anterior talofibular ligament of right ankle, initial encounter [S93.491A] Ulcer of toe of right foot, with fat layer exposed (HCC) [L97.512] Chronic pain of right ankle [M25.571, G89.29] Other diabetic neurological complication associated with type 2 diabetes mellitus (HCC) [E11.49] Order(s):collagenase (SANTYL) ointmentApply 1 application to affected area once daily. APPLY TO AFFECTED AREADisp: 90 gRfl: 2 MRI ANKLE WO IVCON RT [[id number]] Order #: [id number] FUTURE collagenase (SANTYL) ointmentApply 1 application to affected area once daily. APPLY TO AFFECTED AREADisp: 90 gRfl: 2 DIAB SHOE FOR DENSITY INSERT [[id number]] Order #: [id number] Prescriptions as of 05/17/2018 Sig: GABAPENTIN 800 MG TABLET Take 1 tablet by mouth three * INSULIN ASPART U-100 100 UNI* Inject 15 Units subcutaneousl* INSULIN DETEMIR (U-100) 100 U* Inject 30 Units subcutaneousl* BLOOD-GLUCOSE METER 1 Units as directed. Dx: E11.* MELOXICAM 15 MG TABLET Take 1 tablet by mouth once d* ROPINIROLE 3 MG TABLET Take 1 tablet by mouth twice * MAGNESIUM OXIDE 400 MG TABLET Take 1 tablet by mouth twice * ACETAMINOPHEN 300 MG-CODEINE * OMEPRAZOLE 20 MG CAPSULE,JR* Take 1 capsule by mouth daily* ROSUVASTATIN 40 MG TABLET Take 1 tablet by mouth once d* PEN NEEDLE, DIABETIC 31 GAUGE* Use as directed four times da* ERGOCALCIFEROL (VITAMIN D2) 5* Take 1 capsule by mouth once * ALPHA LIPOIC ACID 600 MG CAPS* Take 600 mg by mouth once arnold* ASCORBIC ACID (VITAMIN C) 500* Take 1 tablet by mouth twice * BLOOD SUGAR DIAGNOSTIC STRIPS Test blood sugar(s) 3- 4 times* BLOOD SUGAR DIAGNOSTIC STRIPS Check blood sugar readings 2-* LANCETS Check blood sugar readings 2-* BLOOD-GLUCOSE METER KIT 1 Each as needed. LANCETS Test 2-3 times a day COLLAGENASE CLOSTRIDIUM HISTO* Apply 1 application to affect* COLLAGENASE CLOSTRIDIUM HISTO* Apply 1 application to affect* DOXYCYCLINE MONOHYDRATE 100 M* Take 1 capsule by mouth twice* Problem List As Of Date 05/17/2018 Noted Resolved Reaction, adjustment, with depressed mood, prol*INVALID FOR* More... NEUROPATHY IN DIABETES [E11.42] INVALID FOR* More... 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 Osteomyelitis (HCC) [M86.9] INVALID FOR* Priority: A More... Clostridium difficile infection [B96.89] INVALID FOR* Priority: C More... Urinary hesitancy [R39.11] INVALID FOR*05/30/2015 Priority: D More... SUMMARY INVALID FOR* Priority: Very Severe More... Urinary hesitancy [R39.11] INVALID FOR*06/04/2015 More... RLS (restless legs syndrome) [G25.81] INVALID FOR* More... Anxiety neurosis [F41.1] INVALID FOR* More... Positive urine drug screen [R82.5] INVALID FOR* More... Other instructions from your clinician: Apply Santyl daily Wear the boot on your R foot. It is ok to wear an ankle brace at night. Schedule your MRI. Prescriptions ordered this encounter Disp Refills Start End COLLAGENASE CLOSTRIDIUM HISTOLYTICUM* 90 g 2 05/17/2018 06/16/2018 Route: TOPICAL Sig: Apply 1 application to affected area once daily. APPLY TO AFFECTED AREA COLLAGENASE CLOSTRIDIUM HISTOLYTICUM* 90 g 2 05/17/2018 06/16/2018 Route: TOPICAL Sig: Apply 1 application to affected area once daily. APPLY TO AFFECTED AREA Disposition: Return in about 2 weeks (around 05/31/2018) for ulcer, R foot. Follow-up and Disposition History Recorded Encounter Status:Closed by SENDY ALLEN DPM on 05/18/18 12 LEAD ELECTROCARDIOGRAM Observed: 05/11/2018 Status: F Source: [place] 11:[address] [facility] Cardiovascular Services [address] [place] [address] 12 Lead EKG 05/10/18 0509 MR#: [id number] Acct: [id number] Name: DIONY CARRILLO Rep #: [id number] : 1965 52 From: Clifford Barlow MD Attending Dr: Status: DEP ER Ordering Dr: Shahriar Tim MD Date: 05/10/18 Location: ED Sex: F C Admitted: Test Reason : GEN ILL Blood Pressure : / mmHG Vent. Rate : 093 BPM Atrial Rate : 093 BPM P-R Int : 148 ms QRS Dur : 088 ms QT Int : 370 ms P-R-T Axes : 048 003 013 degrees QTc Int : 460 ms Normal sinus rhythm Normal ECG Confirmed by ELEN DELVALLE, CLIFFORD ([id number]), food editor MARLON GALEANA ([id number]) on 05/11/2018 11:53:00 AM Referred By: CF Confirmed By:CLIFFORD BARLOW MD 05/11/18 1153 Date Clifford Barlow MD CC: Harrison Tim MD; Alessandro Eric MD Signed EMERGENCY DEPARTMENT Observed: 05/10/2018 Status: F Source: [place] [facility] Medical Records Department [address] [place] [address] Emergency Department Summary 05/10/18 0639 MR#: [id number] Acct: [id number] Name: DIONY CARRILLO Rep #: [id number] : 1965 52 From: Shahriar Tim MD PCP: Alessandro Eric MD Status: REG ER - ER Visit Summary Date of Service: 05/10/18 Chief Complaint: [] History of Present Illness: The patient is a 52 F [] Physical Examination: [] Test Results: [] Emergency Department Course and Treatment: [] Treatment Plan: [] Disposition: [] Impression: [] This note was generated with [employer] software. It may contain incorrect words, spelling, and punctuation that were not noted in review of the chart prior to signing ED Disposition - Plan for ED Patient: Disposition: Home or Assisted Living Chief Complaint: General Illness Instructions: ED Dizziness UKO, ED Near Syncope Unkn Referrals: Alessandro Eric MD [Primary Care Provider] - What to do if you have Problems For any increased pain, shortness of breath, bleeding, nausea or vomiting, chest pain, or any unexpected problems, contact your Primary Care Provider. Call [facility] ([phone]) or report to the closest Emergency Room. Call 911 if necessary. 05/10/18 0642 <Electronically signed by Shahriar Tim MD> Date Shahriar Tim MD Cosigner Signature (If Indicated): Date CC: Alessandro Eric MD EMERGENCY DEPARTMENT Observed: 05/10/2018 Status: F Source: [place] SUMMARY 6:[address] [facility] REPOSITORY [facility] Medical Records Department [address] [place] [address] Emergency Department Summary 05/10/18 0505 MR#: [id number] Acct: [id number] Name: DIONY CARRILLO Rep #: [id number] : 1965 52 From: Shahriar Tim MD PCP: Alessandro Eric MD Status: REG ER - ER Visit Summary Date of Service: 05/10/18 Chief Complaint: [Lightheadedness, nausea] History of Present Illness: The patient is a 52 F [that presents with multiple complaints. Patient states that she stood up she felt lightheaded like she was going to pass out. She denies any chest pain or shortness of breath. She describes mild headache and nausea. No recent fall or trauma. She has a history of anxiety and depression and per friend at bedside states that she has been under a lot of stress lately. She overall appears well and in no acute distress. She denies any abdominal pain or urinary symptoms. No fever or recent illness. She denies recent travel. No other complaints.] Physical Examination: [General: The patient appears well and in no apparent distress. Patient is resting comfortably on cart. Skin: Warm, dry, no pallor noted. No rash. Head: Normocephalic, atraumatic Neck: Supple, nontender. No meningismus. Eye: PERRLA, EOMI ENT: Moist mucus membranes, pharynx within normal limits. Cardiovascular: Regular Rate and Rhythm, no gallups or rubs Respiratory: Patient is in no distress, no accessory muscle use, lungs are clear to auscultation, no wheezing, rales or rhonchi Musculoskeletal: normal ROM, no deformity, no tenderness, no swelling. 2+ radial and DP pulses symmetric. GI: No tenderness to palpation, no masses appreciated. No rebound, guarding, or rigidity noted. Neurological: A AND O, normal strength and sensation. Psychiatric: Cooperative] Test Results: [Blood work overall unremarkable. Urinalysis not consistent with infection. HCG negative. Chest x-ray and CT imaging of the head showed no acute process.] Emergency Department Course and Treatment: [Patient was given Tylenol and IV fluids. Blood work, chest x-ray, EKG, and CT head imaging were obtained. Reevaluation at 0630 patient is sitting up in bed and states she feels improved. She has no new complaints. Her lightheadedness is resolved. She was able to ambulate in the emergency department without difficulty. At this time I feel she is stable for discharge and close follow-up with her primary provider. She was instructed to return with any new or worsening symptoms. Patient understands and is agreeable with this plan of care. Patient was discharged home in stable condition.] Treatment Plan: [see above] Disposition: [discharge home] Impression: [Lightheadedness - resolved, Near Syncope] This note was generated with [employer] dictation software. It may contain incorrect words, spelling, and punctuation that were not noted in review of the chart prior to signing ED Disposition - Plan for ED Patient: Disposition: Home or Assisted Living Chief Complaint: General Illness Instructions: ED Near Syncope Unkn, ED Dizziness UKO Referrals: Alessandro Eric MD [Primary Care Provider] - What to do if you have Problems For any increased pain, shortness of breath, bleeding, nausea or vomiting, chest pain, or any unexpected problems, contact your Primary Care Provider. Call [facility] ([phone]) or report to the closest Emergency Room. Call 911 if necessary. 05/10/18 0638 <Electronically signed by Shahriar Tim MD> Date Shahriar Tim MD Cosigner Signature (If Indicated): Date CC: Alessandro Eric MD URINALYSIS, COMPLETE Collected: 05/10/2018 Status: F Source: [place] 5:[address] [facility] REPOSITORY Order Comment: Order Date: 05/10/18 How was Urine Obtained? MACHINIST SUPERVISOR TO SPECIFY TYPE CODE TESTS RESULT OUT OF RANGE REFERENCE UNITS LAB L400.3000 Yellow COLOR Normal Straw LAB L400.3050 Clear Normal CLARITY Clear LAB L400.3200 Normal mg/dl High GLUCOSE, UR 100 LAB L400.3300 Negative mg/dL Normal BILIRUBIN URINE Negative LAB L400.3400 Negative mg/dl Normal KETONE UR Negative LAB L400.3465 1.002-1.030 Normal SP.GR. DIPSTX 1.005 LAB L400.3550 5.0 - 8.0 pH UR Normal 7.0 LAB L400.3600 Negative mg/dl PROT Normal DIPSTX Negative LAB L400.3700 Normal mg/dl Normal UROBILI Normal LAB L400.3750 Negative Normal NITRITE UR Negative LAB L400.3780 Negative /ul Normal OCCULT BLOOD-UR Negative LAB L400.3800 Negative /ul LEUK Normal ESTERASE Negative LAB L400.4050 0-5 /hpf WBC 0 Normal SEEN LAB L400.4100 0-5 /hpf 0 Normal RBC-UA SEEN LAB L400.4150 5-10 /hpf SQUAM Normal EPI 0-5 SEEN LAB L400.4300 None Seen /hpf 0 Normal BACTERIA SEEN LAB L400.4350 <or=2+ /hpf 0 Normal MUCUS, URINE SEEN Performed By: #### L400.0001 #### [facility] [address] [place], [address] ,URINE Collected: 05/10/2018 Status: F Source: [place] 5:[address] [facility] REPOSITORY Order Comment: Order Date: 05/10/18 TYPE CODE TESTS RESULT OUT OF REFERENCE UNITS RANGE LAB L400.8000 Negative Normal HCGUQUAL Negative Result Comment: Very dilute urine specimens, as indicated by a low specific gravity, may not contain service representative levels of hCG. If is still suspected, a first morning urine specimen should be collected 48 hours later and tested. Performed By: #### L400.7600 #### [facility] [address] [place], [address] CHEST 1 VIEW Observed: 05/10/2018 Status: F Source: [place] (PORTABLE) 5:[address] [facility] REPOSITORY [facility] Imaging Services [address] [place] [address] Chest 1 View (Portable) MR#: [id number] Acct: [id number] Name: DIONY CARRILLO Rep #: [id number] : 1965 F 52 From: Zay Rodriguez MD PCP: Alessandro Eric MD Status: REG ER Study: Chest 1 View (Portable) Date of Exam: 05/10/18 Exam# [id number] Ordering Dr: Shahriar Tim MD STUDY: X-RAY CHEST REASON FOR EXAM: Female, 52 years old. Cough TECHNIQUE: 1 view COMPARISON: None. FINDINGS: The lungs are clear and expanded. There is no demonstrated pleural abnormality. Normal size heart. Normal mediastinum and elvie. Normal visualized pulmonary arteries. Normal visualized aortic arch and descending thoracic aorta. Normal visualized thoracic spine. Normal visualized ribs, clavicles, and shoulders. There is no demonstrated abnormality of the visualized soft tissue structures of the upper abdomen. RAD/Chest 1 View (Portable) IMPRESSION: Normal x-ray examination of the chest. No acute findings in the lungs Electronically Signed: Zay Rodriguez, at 5:36 EDT Tel , Service support , CC: Harrison Tim MD; Alessandro Eric MD Mobile Lounge Driver Or Operator: Signed BRAIN/HEAD WITHOUT Observed: 05/10/2018 Status: F Source: [place] CONTRAST 5:[address] [facility] REPOSITORY [facility] Imaging Services [address] [place] [address] Brain/Head without Contrast MR#: [id number] Acct: [id number] Name: DIONY CARRILLO Rep #: [id number] : 1965 F 52 From: Zay Rodriguez MD PCP: Alessandro Eric MD Status: REG ER Study: Brain/Head without Contrast Date of Exam: 05/10/18 Exam# [id number] Ordering Dr: Shahriar Tim MD STUDY: CT BRAIN WITHOUT CONTRAST REASON FOR EXAM: Female, 52 years old. Headaches RADIATION DOSAGE (If Supplied By Facility): CTDIvol = ( 44.99 ) mGy, DLP = ( 779.24 ) mGycm TECHNIQUE: Transaxial CT imaging of the brain was performed without administration of intravenous contrast material. Individualized dose optimization techniques were used for this CT. COMPARISON: None. FINDINGS: Normal soft tissue structures. Normal calvarium. Normal size ventricles and extra-axial spaces for the patient's age. Normal white matter tracts of the cerebral hemispheres. Normal basal ganglia and thalami. Normal brainstem. Normal cerebellum. There is no intracranial hemorrhage. There are no findings of an acute ischemic infarction. Normal visualized paranasal sinuses. CT/Brain/Head without Contrast IMPRESSION: Normal unenhanced CT scan of the brain. No acute findings in the brain Electronically Signed: Zay Rodriguez, at 6:03 EDT Tel , Service support , CC: Harrison Tim MD; Alessandro Eric MD Mobile Lounge Driver Or Operator: Signed CBC W/DIFF, AUTOMATED Collected: 05/10/2018 Status: F Source: [place] 4:[address] [facility] REPOSITORY TYPE CODE TESTS RESULT OUT OF RANGE REFERENCE UNITS LAB L100.1000 4.4-11.0 K/mm3 Normal WBC 9.2 LAB L100.1200 4.2-5.4 M/mm3 Low RBC 4.14 LAB L100.1300 12.0-15.0 g/dl Low HGB 11.7 LAB L100.1400 37-47 % Low HCT 35.2 LAB L100.1500 81-99 fL Normal MCV 85.0 LAB L100.1600 27.0-32.0 pg Normal MCH 28.3 LAB L100.1700 32-36 g/gl Normal MCHC 33.2 LAB L100.1810 11.6-14.6 % Normal RDW CV 13.2 LAB L100.1820 35.1-43.9 fl Normal RDW SD 40.7 LAB L100.1900 150-450 K/mm3 Normal PLT 307 LAB L100.2000 6.2-12.0 fl Normal MPV 11.0 LAB L100.2100 47-70 % Normal NEUT% 67.1 LAB L100.2200 19-41 % Normal LY% 22.6 LAB L100.2300 0-10 % Normal MONO% 7.6 LAB L100.2400 0-5 % Normal EO% 2.1 LAB L100.2500 0-1 % Normal BASO% 0.4 LAB L100.2550 0.0-0.9 % Normal IM GRAN % 0.200 Result Comment: IG% - Immature Granulocytes (promyelocytes, myelocytes and metamyelocytes) > 1% indicates that a LEFT SHIFT is Present. LAB L100.2620 2.0-7.7 X10 3/uL Normal Absolute Neut 6.2 LAB L100.2720 0.83-4.51 X10 3/ul Normal Absolute Lymph 2.09 Performed By: #### L100.0100 #### [facility] [address] [place], [address] COMPREHENSIVE METABOLIC Collected: 05/10/2018 Status: F Source: [facility] 4:[address] [facility] REPOSITORY TYPE CODE TESTS RESULT OUT OF RANGE REFERENCE UNITS LAB L501.0100 74-106 mg/dL High GLU 132 Result Comment: Fasting Glucose result greater than or equal to 126 mg/dL suggests DIABETES MELLITUS per A.D.A. criteria. Please note revised GLUCOSE reference range effective 2017. LAB L501.1000 7-18 mg/dL High BUN 29 LAB L501.1100 0.55-1.02 mg/dL Normal CREAT,SERUM 0.99 Result Comment: The validity of the calculated GFR AND GFRAA in patients over 70 years has not been determined. Clinical correlation is essential. LAB L501.1110 >60 mL/min Normal EST GFR 62 Result Comment: Non- GFR Calc LAB L501.1115 >60 mL/min Normal EST GFR - AA 75 Result Comment: GFR Calc LAB L501.1255 ml/min Normal Estimated CRCL 62.23 LAB L501.1300 10-20 RATIO High BUN/CRE 29.2 LAB L501.1500 6.4-8. g/dL Normal 2 T PROT 7.4 LAB L501.1800 3.2-5. g/dL Normal 0 ALB 3.5 LAB L501.1950 2.2-4. g/dL Normal 2 GLOB 3.9 LAB L501.2000 0.9-2. RATIO Normal 4 A/G 0.9 LAB L501.2200 8.5-10 mg/dL Normal .1 CA 8.8 LAB L501.4100 15-37 U/L Normal AST 15 LAB L501.4305 45-117 U/L Normal ALK P 107 LAB L501.4405 13-56 U/L Normal ALT 20 LAB L501.4600 0.20-1 mg/dL Normal .00 T BILI 0.20 LAB L501.5300 136-14 mmol/L Normal 5 NA 141 LAB L501.5600 3.5-5. mmol/L Normal 1 K 4.0 LAB L501.5900 98-107 mmol/L Normal CL 106 LAB L501.6100 21.0-3 mmol/L Normal 2.0 CO2 26.0 LAB L501.6200 5-15 Normal GAP 9 Performed By: #### L500.4050 #### [facility] [address] [place] [address]. [place], [address] XR ANKLE 3V AP/LAT/OBL Observed: 04/25/2018 Status: F Source: [place] 3:08 PM [facility] REPOSITORY * * *Final Report* * * DATE OF EXAM: Apr 25 2018 3:08PM WRX [id number] - XR ANKLE 3V AP/LAT/OBL RT / PROCEDURE REASON: multiple diagnoses * * * * Physician Interpretation * * * * HISTORY: 52-YEAR-OLD FEMALE WITH Pain in right foot . pain on the lateral side of the right foot mid-hidfoot area, for 1 week. (accession [id number]), Lateral right ankle pain after an injury 3 months ago. (accession [id number]) TECHNIQUE: XR FOOT 3V AP/LAT/OBL RT, XR ANKLE 3V AP/LAT/OBL RT Laterality: RIGHT Number of different views (projections): 3 COMPARISON: Right foot done on 07/12/2017 in right ankle done on 01/30/2014 RESULT: Right ankle: The ankle mortise is maintained. There is a small exostosis about the medial malleolus consistent with remote ligament avulsion which is healed. There are small calcifications plantar to the lateral malleolus consistent with remote ligament injuries. There is an ossicle plantar to the medial malleolus adjacent to the talus consistent with a remote ligament avulsion. Os trigonum is present. Calcaneal enthesophyte insertion of the Achilles tendon. 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 Remote healed fracture of the stump of the proximal fifth metatarsal. Cortical thickening of the second through fourth metatarsal diaphyses. Narrowing of the second and third tarsometatarsal joints and the fifth tarsometatarsal joint. Narrowing of the navicular medial cuneiform articulation. Calcification dorsal to the cuneiforms consistent with posttraumatic changes. Soft tissue swelling about the midfoot dorsally. IMPRESSION: POSTTRAUMATIC CHANGES OF LIGAMENT INJURIES ABOUT THE ANKLE WITH CALCIFICATIONS AND CALCIFIC BODIES PRESENT UNCHANGED FROM PREVIOUS EXAM. STATUS POST AMPUTATION OF THE FIFTH RAY. POSTTRAUMATIC AND DEGENERATIVE CHANGES ABOUT THE MIDFOOT UNCHANGED FROM PREVIOUS EXAM. Mobile Lounge Driver Or Operator: WILLIAM Transcribe Date/Time: Apr 25 2018 3:31P Dictated by : AMBROSIO IVEY MD This examination was interpreted and the report reviewed and electronically signed by: AMBROSIO IVEY MD on Apr 25 2018 3:36PM EST [id number] Observed: 04/25/2018 Status: COMPLETED Source: [place] 2:56 PM [facility] REPOSITORY HNO ID: [id number] Author: Alice Segovia (Rt) Lilian Jalloh Service: (none) Author Type: Ground Crew Chief Type: Progress Notes Filed: 04/25/2018 3:09 PM Note Text: Radiology Service Progress Note PATIENT NAME: Diony Carrillo DATE OF SERVICE: April 25, 2018 TIME: 2:56 PM PATIENT IDENTITY VERIFICATION COMPLETED USING TWO (2) METHODS: Patient confirmed name verbally and Date of . PATIENT GENDER DATA: Female. status: : No status: NO. PATIENT RELEVANT IMPLANT DATA REVIEWED: Not Applicable RADIOLOGY DEPARTMENT: General X-ray: Exam(s) Completed: Lower Extremity X-Ray(s): Ankle, Right: PERIPHERAL IV DATA: Not applicable SIGNED BY: RT Socorro April 25, 2018 2:56 PM PROGRESS Observed: 04/25/2018 Status: COMPLETED Source: [place] 2:16 PM [facility] REPOSITORY HNO ID: [id number] Author: Sendy Allen Service: (none) Author Type: Physician Type: Progress Notes Filed: 04/28/2018 4:42 PM Note Text: ? Sendy Allen DPM Department of Podiatry [address] [place] [address] Dept: [phone] Dept 04/25/2018 Initial Podiatric Office Visit: HPI: Diony Carrillo is a 52 year old female. Patient presents with possible R foot fracture. Patient reports injured her foot 3 months ago while in [place] and she believed it to be sprained. Reports that she was not seen in [place] for symptoms. Patient states she was evaluated at [facility] on 04/18/18 for R foot pain and swelling. She had xrays and was informed that she had a hairline fracture. She was placed in a splint and given crutches and told to stay off her foot. Patient removed splint herself and has been wearing post op shoe and using crutches. Patient is a diabetic but has not checked her blood sugar today. Nursing attempted to retrieve records from [facility] with no success. She has new XR to review. PCP: Alessandro Eric MD PAST MEDICAL HISTORY Diagnosis Date - Chronic depressive personality disorder - Degenerative disc disease - Diabetes mellitus without mention of complication Diabetes mellitus - Fallen arches (Broken) on both sides - Polyneuropathy in diabetes(357.2) - Restless legs syndrome (RLS) Current Outpatient Prescriptions: rOPINIRole Hydrochloride 3 mg tablet Take 1 tablet by mouth twice daily. insulin aspart (NOVOLOG FLEXPEN) 100 unit/mL inpn Inject 15 Units subcutaneously three times daily with meals. insulin detemir (LEVEMIR FLEXPEN) 100 unit/mL (3 mL) inpn injection Inject 30 Units subcutaneously daily before breakfast. gabapentin (NEURONTIN) 800 mg tablet Take 1 tablet by mouth three times daily for 30 days. magnesium oxide (MAG-OX) 400 mg tablet Take 1 tablet by mouth twice daily. doxycycline monohydrate (MONODOX) 100 mg capsule Take 1 capsule by mouth twice daily. acetaminophen-codeine (TYLENOL-COD #3) 300-30 mg per tablet omeprazole (PRILOSEC) 20 mg capsule Take 1 capsule by mouth daily before breakfast. 1/2 hr before meal. rosuvastatin (CRESTOR) 40 mg tablet Take 1 tablet by mouth once daily. insulin needles, DISPOSABLE, (PEN NEEDLE) 31 gauge x 5/16 ndle Use as directed four times daily ergocalciferol, vitamin D2, (DRISDOL) 50,000 unit capsule Take 1 capsule by mouth once each week. Alpha Lipoic Acid 600 mg cap Take 600 mg by mouth once daily. ascorbic acid, vitamin C, (VITAMIN C) 500 mg tablet Take 1 tablet by mouth twice daily. Take with iron (ferrous sulfate). blood sugar diagnostic (ACCU-CHEK MEGAN) test strip Test blood sugar(s) 3-4 times daily. Dx: Type 1 DM - Uncontrolled E 10.65 Insulin: Yes Blood-Glucose Meter (ACCU-CHEK MEGAN CONNECT METER) misc 1 Units as directed. Dx: E11.40 blood sugar diagnostic (ACCU-CHEK MEGAN PLUS TEST STRP) test strip Check blood sugar readings 2-3 times daily and as needed. Insulin dependent. Dx: E11.40 Lancets (ACCU-CHEK MULTICLIX LANCET) lancets Check blood sugar readings 2-3 times daily. Insulin dependent. Dx: E11.40 Blood-Glucose Meter (BLOOD GLUCOSE MONITORING) monitoring kit 1 Each as needed. Lancets lancets Test 2-3 times a day No current facility-administered medications for this visit. ALLERGIES Allergen Reactions - Oxycontin [Oxycodon* itch - Penicillins Hives - Requip [Ropinirole] Intolerance Vomiting, panic attacks, itching PAST SURGICAL HISTORY Procedure Laterality Date - DELIVERY ONLY , low cervical - EGD W/O OR W/BRUSH/WASH 05/10/2012 EGD - LIGATE FALLOPIAN TUBE Tubal ligation - PAST SURGICAL HISTORY OF removal right 5th metatarsal - PICC LINE INSERT/CONSULT 06/14/2014 - REPAIR ROTATOR CUFF,ACUTE 1996 Rotator cuf repair right, Dr Alvarado - [facility] MEDIAN N/CARPAL TUNNEL SURG 1996 Carpal tunnel decomp, right, Dr Alvarado - REVISE MEDIAN N/CARPAL TUNNEL SURG 2008 Carpal tunnel decomp, LEFT FAMILY HISTORY Problem Relation Age of Onset - Hypertension Mother - Diabetes Mother - Stroke Mother - Diabetes Sister - Diabetes Brother X-3 - Heart Brother X-3 - Breast Cancer Paternal Aunt x5 - Cancer Brother testicular, Social History Marital status: Single Spouse name: Maximus Years of education: 13 Number of children: 2 Occupational History 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 EYES: No diplopia or blurry vision. CARDIOVASCULAR: No chest pain, dyspnea, palpitations, orthopnea, PND, ankle edema. PULM: No dyspnea, unexplained cough. GI: No dysphagia/odynophagia, problematic reflux, constipation, diarrhea, changes in stool habits, hematochezia, melena. : No new urinary complaints, including dysuria, gross hematuria or pyuria. NEURO: No new balance problems, peripheral weakness/paresthesias or numbness of concern. MUSC-SKEL: No new joint pain, swelling, or erythema. PSY: No concerns regarding depression, anxiety or panic. INTEGUMENTARY: No new skin changes (rash, new or changing mole, new growth) Physical Exam: Constitutional: Pt is a well developed 52 year old female who is alert, oriented and cooperative Eyes: Following during examination. No redness or drainage. Respiratory: RR normal and nonlabored. Even breathing. No evidence of distress or shortness of breath. Psychology: Patient is engaged during conversation. Normal affect and mood. Does not appear depressed or anxious during encounter. Vascular: Dorsalis pedis and posterior tibial pulses palpable as b/l Capillary Fill time < 5 seconds to digits 1-4 b/l Skin temperature warm to warm proximal to distal b/l Hair growth present to digits Neurological: absent light touch/epicritic sensation Vibratory sensation diminished to hallux b/l diminished protective sensation, significant neurological deficits Dermatological: Nails 1-4b/l appear Normal. Webspaces clean and dry 1-4 b/l. Skin appears dry and scaly. good color, texture, turgor. Callosities absent.Open lesions absent. Wound: Not present. Musculoskeletal/Orthopaedic: Patient has pain to palpation of lateral right foot and to right ankle Mild swelling is present to right ankle. No calf pain noted. AJ ROM is full with knee extended and flexed 1st MPJ is decreased when loaded and no pain or crepitus are noted with ROM. MTJ, STJ are full and free of pain and crepitus. +5/5 muscle strength dorsiflexion, plantarflexion, inversion, eversion b/l b/l 5th metatarsal amputation Radiographs: 3 views of right foot shows no acute fracture. ASSESSMENT: (S93.491A) Sprain of anterior talofibular ligament of right ankle, initial encounter (primary encounter diagnosis) (M25.471) Swelling of ankle joint, right (M19.079) Arthritis of ankle PLAN: Patient was examined and informed of current findings Discussed right foot and ankle pain. Apparently this patient injured this ankle 3 months ago and has been walking on a sprain since then. xrays of foot reviewed but shows no acute bony process. Recommend ankle xray. Informed patient that my greatest concern is that of charcot but on exam, there is no significant rise in temperature of right foot compared to left. Specifically there was no more than 1 degree of difference in temperature on right than left. There was no swelling or redness or excessive warmth. Suspect mostly arthritis of foot and sprain. Nevertheless, I did discuss concern of charcot and discussed casting. She declined stating she is unable to walk in cast. I informed patient the cast would rest her foot which may help her pain. She declined. I will place her in boot and get xray. I will have her follow-up in 1-2 weeks If any changes occur, she is to present to office. Sendy Allen DPM PROGRESS Observed: 04/25/2018 Status: COMPLETED Source: [place] 2:12 PM [facility] [place] REPOSITORY O ID: [id number] Author: Alvina Pappas) Lilian Galeana Service: (none) Author Type: Ground Crew Chief Type: Progress Notes Filed: 04/25/2018 2:12 PM Note Text: Radiology Service Progress Note PATIENT NAME: Diony Carrillo DATE OF SERVICE: April 25, 2018 TIME: 2:12 PM PATIENT IDENTITY VERIFICATION COMPLETED USING TWO (2) METHODS: Patient confirmed name verbally and Date of . PATIENT GENDER DATA: Female. status: : No status: NO. PATIENT RELEVANT IMPLANT DATA REVIEWED: Not Applicable RADIOLOGY DEPARTMENT: General X-ray: Exam(s) Completed: Lower Extremity X-Ray(s): Foot, Right and Wt. Bearing: PERIPHERAL IV DATA: Not applicable SIGNED BY: Alvina Galeana, RT April 25, 2018 2:12 PM XR FOOT 3V AP/LAT/OBL Observed: 04/25/2018 Status: F Source: [place] RT 2:11 PM [facility] * * *Final Report* * * DATE OF EXAM: Apr 25 2018 2:11PM [id number] - XR FOOT 3V AP/LAT/OBL RT / PROCEDURE REASON: Pain in right foot * * * * Physician Interpretation * * * * HISTORY: 52-YEAR-OLD FEMALE WITH Pain in right foot . pain on the lateral side of the right foot mid-hidfoot area, for 1 week. (accession [id number]), Lateral right ankle pain after an injury 3 months ago. (accession [id number]) TECHNIQUE: XR FOOT 3V AP/LAT/OBL RT, XR ANKLE 3V AP/LAT/OBL RT Laterality: RIGHT Number of different views (projections): 3 COMPARISON: Right foot done on 07/12/2017 in right ankle done on 01/30/2014 RESULT: Right ankle: The ankle mortise is maintained. There is a small exostosis about the medial malleolus consistent with remote ligament avulsion which is healed. There are small calcifications plantar to the lateral malleolus consistent with remote ligament injuries. There is an ossicle plantar to the medial malleolus adjacent to the talus consistent with a remote ligament avulsion. Os trigonum is present. Calcaneal enthesophyte insertion of the Achilles tendon. 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 Remote healed fracture of the stump of the proximal fifth metatarsal. Cortical thickening of the second through fourth metatarsal diaphyses. Narrowing of the second and third tarsometatarsal joints and the fifth tarsometatarsal joint. Narrowing of the navicular medial cuneiform articulation. Calcification dorsal to the cuneiforms consistent with posttraumatic changes. Soft tissue swelling about the midfoot dorsally. IMPRESSION: POSTTRAUMATIC CHANGES OF LIGAMENT INJURIES ABOUT THE ANKLE WITH CALCIFICATIONS AND CALCIFIC BODIES PRESENT UNCHANGED FROM PREVIOUS EXAM. STATUS POST AMPUTATION OF THE FIFTH RAY. POSTTRAUMATIC AND DEGENERATIVE CHANGES ABOUT THE MIDFOOT UNCHANGED FROM PREVIOUS EXAM. Mobile Lounge Driver Or Operator: PSCB Transcribe Date/Time: Apr 25 2018 3:31P Dictated by : AMBROSIO IVEY MD This examination was interpreted and the report reviewed and electronically signed by: AMBROSIO IVEY MD on Apr 25 2018 3:36PM EST [id number] Observed: 04/25/2018 Status: COMPLETED Source: [place] 1:40 PM [facility] REPOSITORY Office Visit (PODIWS) DIONY CARRILLO ([id number]) 1965 F Date Time Provider Department 04/25/18 1:40 PM SENDY ALLEN During your visit today, we recorded the following information about you: Sendy Allen DPM 04/28/2018 4:42 PM Signed ? Sedny Allen DPM Department of Podiatry 1 [facility] [address] Dept: [phone] Dept 04/25/2018 Initial Podiatric Office Visit: HPI: Diony Carrillo is a 52 year old female. Patient presents with possible R foot fracture. Patient reports injured her foot 3 months ago while in [place] and she believed it to be sprained. Reports that she was not seen in [place] for symptoms. Patient states she was evaluated at [facility] on 04/18/18 for R foot pain and swelling. She had xrays and was informed that she had a hairline fracture. She was placed in a splint and given crutches and told to stay off her foot. Patient removed splint herself and has been wearing post op shoe and using crutches. Patient is a diabetic but has not checked her blood sugar today. Nursing attempted to retrieve records from [facility] with no success. She has new XR to review. PCP: Alessandro Eric MD PAST MEDICAL HISTORY Diagnosis Date - Chronic depressive personality disorder - Degenerative disc disease - Diabetes mellitus without mention of complication Diabetes mellitus - Fallen arches (Broken) on both sides - Polyneuropathy in diabetes(357.2) - Restless legs syndrome (RLS) Current Outpatient Prescriptions: rOPINIRole Hydrochloride 3 mg tablet Take 1 tablet by mouth twice daily. insulin aspart (NOVOLOG FLEXPEN) 100 unit/mL inpn Inject 15 Units subcutaneously three times daily with meals. insulin detemir (LEVEMIR FLEXPEN) 100 unit/mL (3 mL) inpn injection Inject 30 Units subcutaneously daily before breakfast. gabapentin (NEURONTIN) 800 mg tablet Take 1 tablet by mouth three times daily for 30 days. magnesium oxide (MAG-OX) 400 mg tablet Take 1 tablet by mouth twice daily. doxycycline monohydrate (MONODOX) 100 mg capsule Take 1 capsule by mouth twice daily. acetaminophen-codeine (TYLENOL-COD #3) 300-30 mg per tablet omeprazole (PRILOSEC) 20 mg capsule Take 1 capsule by mouth daily before breakfast. 1/2 hr before meal. rosuvastatin (CRESTOR) 40 mg tablet Take 1 tablet by mouth once daily. insulin needles, DISPOSABLE, (PEN NEEDLE) 31 gauge x 5/16 ndle Use as directed four times daily ergocalciferol, vitamin D2, (DRISDOL) 50,000 unit capsule Take 1 capsule by mouth once each week. Alpha Lipoic Acid 600 mg cap Take 600 mg by mouth once daily. ascorbic acid, vitamin C, (VITAMIN C) 500 mg tablet Take 1 tablet by mouth twice daily. Take with iron (ferrous sulfate). blood sugar diagnostic (ACCU-CHEK MEGAN) test strip Test blood sugar(s) 3-4 times daily. Dx: Type 1 DM - Uncontrolled E 10.65 Insulin: Yes Blood-Glucose Meter (ACCU-CHEK MEGAN CONNECT METER) misc 1 Units as directed. Dx: E11.40 blood sugar diagnostic (ACCU-CHEK MEGAN PLUS TEST STRP) test strip Check blood sugar readings 2-3 times daily and as needed. Insulin dependent. Dx: E11.40 Lancets (ACCU-CHEK MULTICLIX LANCET) lancets Check blood sugar readings 2-3 times daily. Insulin dependent. Dx: E11.40 Blood-Glucose Meter (BLOOD GLUCOSE MONITORING) monitoring kit 1 Each as needed. Lancets lancets Test 2-3 times a day No current facility-administered medications for this visit. ALLERGIES Allergen Reactions - Oxycontin [Oxycodon* itch - Penicillins Hives - Requip [Ropinirole] Intolerance Vomiting, panic attacks, itching PAST SURGICAL HISTORY Procedure Laterality Date - DELIVERY ONLY , low cervical - EGD W/O OR W/BRUSH/WASH 05/10/2012 EGD - LIGATE FALLOPIAN TUBE Tubal ligation - PAST SURGICAL HISTORY OF removal right 5th metatarsal - PICC LINE INSERT/CONSULT 06/14/2014 - REPAIR ROTATOR CUFF,ACUTE 1996 Rotator cuf repair right, Dr Alvarado - REVISE MEDIAN N/CARPAL TUNNEL SURG 1996 Carpal tunnel decomp, right, Dr Alvarado - PEDRO PABLO MEDIAN N/CARPAL TUNNEL SURG 2008 Carpal tunnel decomp, LEFT FAMILY HISTORY Problem Relation Age of Onset - Hypertension Mother - Diabetes Mother - Stroke Mother - Diabetes Sister - Diabetes Brother X-3 - Heart Brother X-3 - Breast Cancer Paternal Aunt x5 - Cancer Brother testicular, Social History Marital status: Single Spouse name: Maximus Years of education: 13 Number of children: 2 Occupational History 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 EYES: No diplopia or blurry vision. CARDIOVASCULAR: No chest pain, dyspnea, palpitations, orthopnea, PND, ankle edema. PULM: No dyspnea, unexplained cough. GI: No dysphagia/odynophagia, problematic reflux, constipation, diarrhea, changes in stool habits, hematochezia, melena. : No new urinary complaints, including dysuria, gross hematuria or pyuria. NEURO: No new balance problems, peripheral weakness/paresthesias or numbness of concern. MUSC-SKEL: No new joint pain, swelling, or erythema. PSY: No concerns regarding depression, anxiety or panic. INTEGUMENTARY: No new skin changes (rash, new or changing mole, new growth) Physical Exam: Constitutional: Pt is a well developed 52 year old female who is alert, oriented and cooperative Eyes: Following during examination. No redness or drainage. Respiratory: RR normal and nonlabored. Even breathing. No evidence of distress or shortness of breath. Psychology: Patient is engaged during conversation. Normal affect and mood. Does not appear depressed or anxious during encounter. Vascular: Dorsalis pedis and posterior tibial pulses palpable as b/l Capillary Fill time < 5 seconds to digits 1-4 b/l Skin temperature warm to warm proximal to distal b/l Hair growth present to digits Neurological: absent light touch/epicritic sensation Vibratory sensation diminished to hallux b/l diminished protective sensation, significant neurological deficits Dermatological: Nails 1-4b/l appear Normal. Webspaces clean and dry 1-4 b/l. Skin appears dry and scaly. good color, texture, turgor. Callosities absent.Open lesions absent. Wound: Not present. Musculoskeletal/Orthopaedic: Patient has pain to palpation of lateral right foot and to right ankle Mild swelling is present to right ankle. No calf pain noted. AJ ROM is full with knee extended and flexed 1st MPJ is decreased when loaded and no pain or crepitus are noted with ROM. MTJ, STJ are full and free of pain and crepitus. +5/5 muscle strength dorsiflexion, plantarflexion, inversion, eversion b/l b/l 5th metatarsal amputation Radiographs: 3 views of right foot shows no acute fracture. ASSESSMENT: (S93.491A) Sprain of anterior talofibular ligament of right ankle, initial encounter (primary encounter diagnosis) (M25.471) Swelling of ankle joint, right (M19.079) Arthritis of ankle PLAN: Patient was examined and informed of current findings Discussed right foot and ankle pain. Apparently this patient injured this ankle 3 months ago and has been walking on a sprain since then. xrays of foot reviewed but shows no acute bony process. Recommend ankle xray. Informed patient that my greatest concern is that of charcot but on exam, there is no significant rise in temperature of right foot compared to left. Specifically there was no more than 1 degree of difference in temperature on right than left. There was no swelling or redness or excessive warmth. Suspect mostly arthritis of foot and sprain. Nevertheless, I did discuss concern of charcot and discussed casting. She declined stating she is unable to walk in cast. I informed patient the cast would rest her foot which may help her pain. She declined. I will place her in boot and get xray. I will have her follow-up in 1-2 weeks If any changes occur, she is to present to office. Sendy Allen DPM Referring Provider: SENDY ALLEN [[id number]] Allergies As of Date: 04/25/2018 Noted Allergy Reaction OXYCONTIN (OXYCODONE HCL) 09/27/2007 Comments: itch PENICILLINS 06/02/2007 4 - Hives REQUIP (ROPINIROLE) 11/18/2015 5 - Intolerance Comments: Vomiting, panic attacks, itching Date Reviewed: 04/25/2018 Reviewed by: Mary King Ma - Fully Assessed Reason for Visit: ED Follow-up [821] Primary Visit Diagnosis:Sprain of anterior talofibular ligament of right ankle, initial encounter [S93.491A] Other Visit Diagnoses:Swelling of ankle joint, right [M25.471] Arthritis of ankle [M19.079] Order(s):XR ANKLE GENERAL 3V AP/LAT/OBL RT [[id number]] Order #: [id number] FUTURE PNEUMATI WALKING BOOT PREFAB [[id number]] Order #: [id number] meloxicam (MOBIC) 15 mg tabletTake 1 tablet by mouth once daily.Disp: 30 tabletRfl: 0 Prescriptions as of 04/25/2018 Sig: MELOXICAM 15 MG TABLET Take 1 tablet by mouth once d* ROPINIROLE 3 MG TABLET Take 1 tablet by mouth twice * INSULIN ASPART U-100 100 UNI* Inject 15 Units subcutaneousl* INSULIN DETEMIR (U-100) 100 U* Inject 30 Units subcutaneousl* GABAPENTIN 800 MG TABLET Take 1 tablet by mouth three * MAGNESIUM OXIDE 400 MG TABLET Take 1 tablet by mouth twice * DOXYCYCLINE MONOHYDRATE 100 M* Take 1 capsule by mouth twice* ACETAMINOPHEN 300 MG-CODEINE * OMEPRAZOLE 20 MG CAPSULE,JR* Take 1 capsule by mouth daily* ROSUVASTATIN 40 MG TABLET Take 1 tablet by mouth once d* PEN NEEDLE, DIABETIC 31 GAUGE* Use as directed four times da* ERGOCALCIFEROL (VITAMIN D2) 5* Take 1 capsule by mouth once * ALPHA LIPOIC ACID 600 MG CAPS* Take 600 mg by mouth once arnold* ASCORBIC ACID (VITAMIN C) 500* Take 1 tablet by mouth twice * BLOOD SUGAR DIAGNOSTIC STRIPS Test blood sugar(s) 3- 4 times* BLOOD-GLUCOSE METER 1 Units as directed. Dx: E11.* BLOOD SUGAR DIAGNOSTIC STRIPS Check blood sugar readings 2-* LANCETS Check blood sugar readings 2-* BLOOD-GLUCOSE METER KIT 1 Each as needed. LANCETS Test 2-3 times a day Problem List As Of Date 04/25/2018 Noted Resolved Reaction, adjustment, with depressed mood, prol*INVALID FOR* More... NEUROPATHY IN DIABETES [E11.42] INVALID FOR* More... 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 Osteomyelitis (HCC) [M86.9] INVALID FOR* Priority: A More... Clostridium difficile infection [B96.89] INVALID FOR* Priority: C More... Urinary hesitancy [R39.11] INVALID FOR*05/30/2015 Priority: D More... SUMMARY INVALID FOR* Priority: Very Severe More... Urinary hesitancy [R39.11] INVALID FOR*06/04/2015 More... RLS (restless legs syndrome) [G25.81] INVALID FOR* More... Anxiety neurosis [F41.1] INVALID FOR* More... Positive urine drug screen [R82.5] INVALID FOR* More... Prescriptions ordered this encounter Disp Refills Start End MELOXICAM 15 MG TABLET 30 t* 0 04/25/2018 05/25/2018 Route: ORAL Sig: Take 1 tablet by mouth once daily. Encounter Status:Closed by SENDY ALLEN DPM on 04/28/18 ANKLE Observed: 04/18/2018 Status: F Source: [facility] 8:30 PM [facility] REPOSITORY Final Report Accession No: [id number] Performed: Apr 18 2018 8:30PM Examination: RIGHT ANKLE RIGHT ANKLE X-RAY THREE VIEWS HISTORY: Pain. COMPARISON: None. FINDINGS: There is soft tissue swelling. There is a tiny avulsion fracture of indeterminate age off the lateral malleolus or lateral talar facet. There is an old fracture fragment adjacent to the medial talus. There is an old medial malleolar fracture. There is no dislocation. There are degenerative or neuropathic changes at the tarsometatarsal joints. IMPRESSION: Soft tissue swelling; tiny avulsion fracture of indeterminate age of the lateral malleolus or lateral talar facet. Old medial malleolar fracture and old fracture fragment adjacent to the medial talus. Degenerative or neuropathic changes at the tarsometatarsal joints. Interpreting Physician: BRITTANY SOTO M.D. Trans: [email or web address] : cc: OBSOLETBasia Observed: 11/03/2017 Status: COMPLETED Source: [place] 12:00 AM [facility] REPOSITORY Refill (FAMDenyWS) DIONY CARRILLO ([id number]) 1965 F Date Time Provider Department 11/03/17 ALESSANDRO ERICWS During your visit today, we recorded the following information about you: Sabine Marino QUEENIE 11/03/2017 2:29 PM Signed Patient calling from [facility] and asking for these rx refills and will have her daughter picking supervisor and mial to her. Please advise Patient has been identified by name and date of : Yes Patient phones for refill(s): Pending Prescriptions Disp Refills INSULIN ASPART 100 UNIT/ML SUBCUTANEOUS PEN 135 Pen 1 Sig: Inject 15 Units subcutaneously three times daily with meals. JENNIFER: No INSULIN DETEMIR 100 UNIT/ML (3 ML) SUBCUTANEOUS PEN 90 Pen 3 Sig: Inject 30 Units subcutaneously daily before breakfast. JENNIFER: No GABAPENTIN 800 MG TABLET 90 tablet 2 Sig: Take 1 tablet by mouth three times daily. JENNIFER: No Date of last office visit in primary care: 06/10/2017, has appt 11/10/2017 Last 2 Encounter Wt Readings: Date: Wt: 06/10/2017 84.8 kg (187 lb) 06/02/2017 82.9 kg (182 lb 12.8 oz) Previous labs/tests for medication: Diabetes: Hemoglobin A1C (%) Date Value 03/03/2017 12.4 11/26/2016 11.2 Please advise. Thank you. Sabine Philippe CNP, CNP 11/03/2017 2:31 PM Signed [facility] website checked and validated. All prescriptions have been APPROPRIATELY filled. No suspicious activity was identified.- 11/03/2017 by Justin Philippe CNP The following approved medication requests have been transmitted electronically. Signed Prescriptions Disp Refills insulin aspart (NOVOLOG FLEXPEN) 100 unit/mL inpn 135 Pen 0 Sig: Inject 15 Units subcutaneously three times daily with meals. JENNIFER: No Authorizing Provider: JUSTIN PHILIPPE) insulin detemir (LEVEMIR FLEXPEN) 100 unit/mL (3 mL) inpn injection 90 Pen 0 Sig: Inject 30 Units subcutaneously daily before breakfast. JENNIFER: No Authorizing Provider: JUSTIN PHILIPPE) gabapentin (NEURONTIN) 800 mg tablet 90 tablet 0 Sig: Take 1 tablet by mouth three times daily for 30 days. 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, E11.65] Diabetes mellitus with neurological manifestations, uncontrolled (HCC) [E11.49, E11.65] Thoracic radiculitis [M54.14] Order(s):insulin aspart (NOVOLOG FLEXPEN) 100 unit/mL inpnInject 15 Units subcutaneously three times daily with meals.Disp: 135 PenRfl: 0 insulin detemir (LEVEMIR FLEXPEN) 100 unit/mL (3 mL) inpn injectionInject 30 Units subcutaneously daily before breakfast.Disp: 90 PenRfl: 0 gabapentin (NEURONTIN) 800 mg tabletTake 1 tablet by mouth three times daily for 30 days.Disp: 90 tabletRfl: 0 Prescriptions as of 11/03/2017 Sig: INSULIN ASPART 100 UNIT/ML GRAY* Inject 15 Units subcutaneousl* INSULIN DETEMIR 100 UNIT/ML (* Inject 30 Units subcutaneousl* GABAPENTIN 800 MG TABLET Take 1 tablet by mouth three * MAGNESIUM OXIDE 400 MG TABLET Take 1 tablet by mouth twice * DOXYCYCLINE MONOHYDRATE 100 M* Take 1 capsule by mouth twice* ACETAMINOPHEN 300 MG-CODEINE * OMEPRAZOLE 20 MG CAPSULE,JR* Take 1 capsule by mouth daily* ROSUVASTATIN 40 MG TABLET Take 1 tablet by mouth once d* ROPINIROLE 3 MG TABLET Take 1 tablet by mouth twice * PEN NEEDLE, DIABETIC 31 GAUGE* Use as directed four times da* ERGOCALCIFEROL (VITAMIN D2) 5* Take 1 capsule by mouth once * ALPHA LIPOIC ACID 600 MG CAPS* Take 600 mg by mouth once arnold* ASCORBIC ACID (VITAMIN C) 500* Take 1 tablet by mouth twice * BLOOD SUGAR DIAGNOSTIC STRIPS Test blood sugar(s) 3- 4 times* BLOOD-GLUCOSE METER 1 Units as directed. Dx: E11.* BLOOD SUGAR DIAGNOSTIC STRIPS Check blood sugar readings 2-* LANCETS Check blood sugar readings 2-* BLOOD-GLUCOSE METER KIT 1 Each as needed. LANCETS Test 2-3 times a day Problem List As Of Date 11/03/2017 Noted Resolved Reaction, adjustment, with depressed mood, prol*INVALID FOR* More... NEUROPATHY IN DIABETES [E11.42] INVALID FOR* More... 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 Osteomyelitis (HCC) [M86.9] INVALID FOR* Priority: A More... Clostridium difficile infection [B96.89] INVALID FOR* Priority: C More... Urinary hesitancy [R39.11] INVALID FOR*05/30/2015 Priority: D More... SUMMARY INVALID FOR* Priority: Very Severe More... Urinary hesitancy [R39.11] INVALID FOR*06/04/2015 More... RLS (restless legs syndrome) [G25.81] INVALID FOR* More... Anxiety neurosis [F41.1] INVALID FOR* More... Positive urine drug screen [R82.5] INVALID FOR* More... Prescriptions ordered this encounter Disp Refills Start End INSULIN ASPART 100 UNIT/ML SUBCUTANE* 135 * 0 11/03/2017 Route: SUBCUTANEOUS Sig: Inject 15 Units subcutaneously three times daily with meals. INSULIN DETEMIR 100 UNIT/ML (3 ML) S* 90 P* 0 11/03/2017 Route: SUBCUTANEOUS Sig: Inject 30 Units subcutaneously daily before breakfast. GABAPENTIN 800 MG TABLET 90 t* 0 11/03/2017 12/03/2017 Route: ORAL Sig: Take 1 tablet by mouth three times daily for 30 days. Medications Discontinued During This Encounter insulin aspart (NOVOLOG FLEXPEN) 100* 135 * 1 06/10/2017 11/03/2017 Route: SUBCUTANEOUS Sig: Inject 15 Units subcutaneously three times daily with meals. Disc: Reason for discontinue is not on file. insulin detemir (LEVEMIR FLEXPEN) 10* 90 mL 3 06/10/2017 11/03/2017 Route: SUBCUTANEOUS Sig: Inject 30 Units subcutaneously daily before breakfast. Disc: Reason for discontinue is not on file. gabapentin (NEURONTIN) 800 mg tablet 90 t* 2 03/03/2017 11/03/2017 Route: ORAL Sig: Take 1 tablet by mouth three times daily. Disc: Reason for discontinue is not on file. Encounter Status:Closed by JUSTIN PHILIPPE CNP on 11/03/17 HAWK Observed: 11/02/2017 Status: COMPLETED Source: [place] 12:00 AM [facility] RE[facility] DIONY CARRILLO ([id number]) 1965 F Date Time Provider Department 11/02/17 [facility] your visit today, we recorded the following information about you: Digna Warner, RN, RN 11/02/2017 12:29 PM Signed Pt called from [facility] to voice that she needs a letter stating that it is ok for her medications to be mailed and for the pt to have them in [facility] or they will be confiscated. Daughter or niece will pick this letter up. Pt will call back tomorrow with a contact number for someone to pick letter up. Alessandro Eric MD 11/02/2017 4:32 PM Signed OK; letter done MD Raquel Castillo Ma 11/02/2017 4:34 PM Signed rx at med rec. Sabine Marino LPN 11/03/2017 2:31 PM Signed Patient returned call from [facility] and went over notes about letter and will contact daughter to come and picking supervisor letter for her and mail it to her. Allergies As of Date: 11/02/2017 Noted Allergy Reaction OXYCONTIN (OXYCODONE HCL) 09/27/2007 Comments: itch PENICILLINS 06/02/2007 4 - Hives REQUIP (ROPINIROLE) 11/18/2015 5 - Intolerance Comments: Vomiting, panic attacks, itching Date Reviewed: 07/22/2017 Reviewed by: Cecy Carbajal RN - Fully Assessed Reason for Visit: letter [Other] Cmt: [place]/ medications Prescriptions as of 11/02/2017 Sig: MAGNESIUM OXIDE 400 MG TABLET Take 1 tablet by mouth twice * DOXYCYCLINE MONOHYDRATE 100 M* Take 1 capsule by mouth twice* ACETAMINOPHEN 300 MG-CODEINE * OMEPRAZOLE 20 MG CAPSULE,JR* Take 1 capsule by mouth daily* ROSUVASTATIN 40 MG TABLET Take 1 tablet by mouth once d* ROPINIROLE 3 MG TABLET Take 1 tablet by mouth twice * X INSULIN ASPART 100 UNIT/ML GRAY* Inject 15 Units subcutaneousl* X INSULIN DETEMIR 100 UNIT/ML (* Inject 30 Units subcutaneousl* PEN NEEDLE, DIABETIC 31 GAUGE* Use as directed four times da* ERGOCALCIFEROL (VITAMIN D2) 5* Take 1 capsule by mouth once * ALPHA LIPOIC ACID 600 MG CAPS* Take 600 mg by mouth once arnold* ASCORBIC ACID (VITAMIN C) 500* Take 1 tablet by mouth twice * X GABAPENTIN 800 MG TABLET Take 1 tablet by mouth three * BLOOD SUGAR DIAGNOSTIC STRIPS Test blood sugar(s) 3- 4 times* BLOOD-GLUCOSE METER 1 Units as directed. Dx: E11.* BLOOD SUGAR DIAGNOSTIC STRIPS Check blood sugar readings 2-* LANCETS Check blood sugar readings 2-* BLOOD-GLUCOSE METER KIT 1 Each as needed. LANCETS Test 2-3 times a day Problem List As Of Date 11/02/2017 Noted Resolved Reaction, adjustment, with depressed mood, prol*INVALID FOR* More... NEUROPATHY IN DIABETES [E11.42] INVALID FOR* More... 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 Osteomyelitis (HCC) [M86.9] INVALID FOR* Priority: A More... Clostridium difficile infection [B96.89] INVALID FOR* Priority: C More... Urinary hesitancy [R39.11] INVALID FOR*05/30/2015 Priority: D More... SUMMARY INVALID FOR* Priority: Very Severe More... Urinary hesitancy [R39.11] INVALID FOR*06/04/2015 More... RLS (restless legs syndrome) [G25.81] INVALID FOR* More... Anxiety neurosis [F41.1] INVALID FOR* More... Positive urine drug screen [R82.5] INVALID FOR* More... Letter Text Alessandro Eric MD [address], [place] [address] 11/02/2017 Diony Carrillo [facility]# [id number] [facility] [place] [id number] TO WHOM IT MAY CONCERN: This is to certify that Ms. Diony Carrillo has been under my care for diabetes. She needs to have her insulin mailed to her in [place] so that she can continue to take this medication. Sincerely yours, Alessandro Eric MD Encounter Status:Closed by RAQUEL ALVAREZ MA on 11/02/17 PROGRESS Observed: 10/14/2017 Status: COMPLETED Source: [place] 3:31 PM [facility] REPOSITORY HNO ID: [id number] Author: Erica Segovia Ma Agapito Service: (none) Author Type: Septic Tank Service Technician Type: Progress Notes Filed: 10/14/2017 3:36 PM Note Text: Team let meeting with Dr. Eric Patient is non compliant. IRLANDATOUTREACH Observed: 10/14/2017 Status: COMPLETED Source: [place] 12:00 AM [facility] REPOSITORY Patient Outreach (FAMPWS) GERARDODIONY Marrufo ([id number]) 1965 F Date Time Provider Department 10/14/17 [facility] During your visit today, we recorded the following information about you: Erica Santoro MA 10/14/2017 3:36 PM Signed Team let meeting with Dr. Eric Patient is non compliant. Allergies As of Date: 10/14/2017 Noted Allergy Reaction OXYCONTIN (OXYCODONE HCL) 09/27/2007 Comments: itch PENICILLINS 06/02/2007 4 - Hives REQUIP (ROPINIROLE) 11/18/2015 5 - Intolerance Comments: Vomiting, panic attacks, itching Date Reviewed: 07/22/2017 Reviewed by: Cecy Carbajal RN - Fully Assessed Reason for Visit: PHMA/Care Gap Outreach [8270] Prescriptions as of 10/14/2017 Sig: MAGNESIUM OXIDE 400 MG TABLET Take 1 tablet by mouth twice * DOXYCYCLINE MONOHYDRATE 100 M* Take 1 capsule by mouth twice* ACETAMINOPHEN 300 MG-CODEINE * OMEPRAZOLE 20 MG CAPSULE,JR* Take 1 capsule by mouth daily* INSULIN ASPART 100 UNIT/ML GRAY* Inject 15 Units subcutaneousl* INSULIN DETEMIR 100 UNIT/ML (* Inject 30 Units subcutaneousl* ROSUVASTATIN 40 MG TABLET Take 1 tablet by mouth once d* ROPINIROLE 3 MG TABLET Take 1 tablet by mouth twice * PEN NEEDLE, DIABETIC 31 GAUGE* Use as directed four times da* ERGOCALCIFEROL (VITAMIN D2) 5* Take 1 capsule by mouth once * ALPHA LIPOIC ACID 600 MG CAPS* Take 600 mg by mouth once arnold* ASCORBIC ACID (VITAMIN C) 500* Take 1 tablet by mouth twice * GABAPENTIN 800 MG TABLET Take 1 tablet by mouth three * BLOOD SUGAR DIAGNOSTIC STRIPS Test blood sugar(s) 3- 4 times* BLOOD-GLUCOSE METER 1 Units as directed. Dx: E11.* BLOOD SUGAR DIAGNOSTIC STRIPS Check blood sugar readings 2-* LANCETS Check blood sugar readings 2-* BLOOD-GLUCOSE METER KIT 1 Each as needed. LANCETS Test 2-3 times a day Problem List As Of Date 10/14/2017 Noted Resolved Reaction, adjustment, with depressed mood, prol*INVALID FOR* More... NEUROPATHY IN DIABETES [E11.42] INVALID FOR* More... 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 Osteomyelitis (HCC) [M86.9] INVALID FOR* Priority: A More... Clostridium difficile infection [B96.89] INVALID FOR* Priority: C More... Urinary hesitancy [R39.11] INVALID FOR*05/30/2015 Priority: D More... SUMMARY INVALID FOR* Priority: Very Severe More... Urinary hesitancy [R39.11] INVALID FOR*06/04/2015 More... RLS (restless legs syndrome) [G25.81] INVALID FOR* More... Anxiety neurosis [F41.1] INVALID FOR* More... Positive urine drug screen [R82.5] INVALID FOR* More... Encounter Status:Closed by ERICA SANTORO on 10/14/17 ALLERGIES ALLERGIES DATE TYPE / NAME / CODE REACTION SEVERITY SOURCE CODE 09/20/2018 Drug oxycodone Rash Unknown [place] Allergy/41 HCl/[id number](RX Community 6049198( NORM) Hospital OMED CT) Repository 09/20/2018 Drug Penicillins/F0010 Shortness of Unknown [place] Allergy/41 49265(RXNORM) breath Community 6846093([facility] OMED [facility]) Repository 08/17/2018 Drug oxycodone/[id number] Rash Unknown [place] Allergy/41 558(RXNORM) Community 1918304([facility] OME CT) Repository 11/18/2015 DRUG ROPINIROLE INTOLERANCE [place] [address] [address] [place] 3506420(SN Repository OMED CT) 09/27/2007 DRUG OXYCODONE HCL [place] [address] [address] [place] 5394211( Repository OMED CT) 06/02/2007 Drug PENICILLINS HIVES [facility] Class/[address] [place] [address](SNOM Repository ED CT) ENCOUNTERS ENCOUNTERS ADMIT/DISCHARGE ACCOUNT NUMBER ADMITTING ENCOUNTER LOCATION SOURCE CLASS 09/23/2018/09/24/20 [id number] [place], Ambulatory [place] 18 Ghasem [facility] ding:PCURoom Repository : SVN084Hqt: 1 09/23/2018 [id number] [place], Ambulatory BMSBuilding: [place] Ghasem [facility] Repository 09/23/2018 [id number] [place], Ambulatory BMSBuilding: [place] Ghasem BMS.CF.[facility] Repository 09/23/2018 [id number] [place], Ambulatory BMSBuilding: [place] Ghasem [facility]MS[facility] Repository 09/21/2018/09/22/20 [id number] Agyepong, Inpatient [place] 18 Gopi Encounter [facility] ding:ICURoom Repository : [id number]: 1 09/21/2018 [id number] Agyep[place], Ambulatory BMSBuilding: [place] Gopi BMS.[facility] Repository 09/21/2018 [id number] Agyepong, Ambulatory BMSBuilding: [place] Nguyễn BMS.[facility] Repository 09/21/2018 [id number] Agyepong, Ambulatory BMSBuilding: [place] Nguyễn BMS.CF.[facility] Repository 09/21/2018 [id number] Agyepong, Ambulatory BMSBuilding: [place] Nguyễn BMS.[facility] Repository 09/19/2018/09/19/20 [id number] Ambulatory [address] [place] Repository 09/12/2018/09/12/20 [id number] Ambulatory [address] Repository 09/12/2018/09/13/20 [id number] Ambulatory [address] Repository 09/05/2018/09/09/20 [id number] Chauncey Hassan Chi Inpatient [facility] 18 Encounter [facility] ding:TCURoom Repository : QEN09Hde: 1 09/05/2018/09/11/20 [id number] Ambulatory [address] [place] Repository 09/04/2018/09/07/20 [id number] Ambulatory [address] Repository 09/01/2018/09/06/20 [id number] Ambulatory [address] Repository 08/30/2018/09/05/20 [id number] JARED, Inpatient [address] (RES) Encounter [facility] Repository 08/29/2018 [id number] Ambulatory [facility] ding:MRI Repository 08/25/2018/08/30/20 [id number] Chauncey Hassan Chi Inpatient [facility] 18 Encounter [facility] ding:TCURoom Repository : [id number]: 1 08/23/2018 [id number] Ambulatory [facility] Repository 08/23/2018 [id number] Ambulatory BMSBuilding: [facility] Repository 08/22/2018/08/25/20 [id number] [place], [place] Inpatient [facility] 18 Encounter [facility] ding:QD3Jbkl Repository : [id number]: 1 08/22/2018 [id number] [place], [place] Ambulatory BMSBuilding: [place] BMS.[facility] Repository 08/22/2018 [id number] [place] Ambulatory BMSBuilding: [place] [facility]MS.[facility] Repository 08/22/2018 [id number] [place] Ambulatory BMSBuilding: [place] [facility]MS[facility] Repository 08/22/2018/08/25/20 [id number] Ambulatory BMSBuilding: [place] 18 [facility] Repository 08/22/2018/08/23/20 [id number] Ambulatory [address] [place] Repository 08/18/2018/08/18/20 [id number] Ambulatory [address] [place] Repository 08/18/2018/08/21/20 [id number] Ambulatory [address] Repository 08/17/2018/08/17/20 [id number] Emergency [address] ding:ED Repository 08/02/2018/08/02/20 [id number] Ambulatory [address] [place] Repository 06/21/2018/06/23/20 [id number] Ambulatory [address] [place] Repository 06/13/2018/06/13/20 [id number] Ambulatory [address] [place] Repository 05/31/2018/05/31/20 [id number] Ambulatory [address] [place] Repository 05/17/2018/05/18/20 [id number] Ambulatory [address] [place] Repository 05/10/2018/05/10/20 [id number] Emergency [address] ding:ED Repository 04/25/2018/04/25/20 [id number] Ambulatory [address] [place] Repository 04/25/2018/04/25/20 [id number] Ambulatory [address] [place] Repository 04/25/2018/05/01/20 [id number] Ambulatory [address] [place] Repository 04/18/2018/04/18/[id number] Franca Riley[address] lding:E Sharps mica Schulte Vanessa DeptRoom: [facility] A1E Z3MWOak: Repository A1E A1ED25 PAYERS PAYERS ENCOUNTER GUARANTOR PAYER SUBSCRIBER SOURCE 09/23/2018 DIONY ARNOLD Primary DIONY Gimenez [id number] Insurance:MEDICARE SALAHDOB: Community [facility] [facility] [id number] Number: Repository [address]Gou: 330 [id number] [phone] () Date:2018-09-23 09/23/2018 Secondary DIONY CLAYTON [place] Insurance:MEDICAIDPol SALAHDOB: Community icy Number: [id number] Hospital [id number] Repository Date:2018-09-23 09/23/2018 Tertiary NOT GIVENUNK [place] Insurance:SELF PAY [facility] Number: Effective Repository Date:2018-09-23 09/23/2018 DIONY ARNOLD Primary DIONY Gimenez [id number] Insurance:MEDICARE SALAHDOB: Community [id number] [place] Number: Repository [address]Imt: 330 [id number] [phone] (HP) Date:2018-09-23 09/23/2018 Secondary DIONY CLAYTON [place] Insurance:MEDICAIDPol SALAHDOB: Community icy Number: [id number] Hospital [id number] Repository Date:2018-09-23 09/23/2018 Tertiary NOT GIVENUNK [place] Insurance:SELF PAY [facility] Number: Effective Repository Date:2018-09-23 09/23/2018 DIONY CLAYTON Primary DIONY Gimenez [id number] Insurance:MEDICARE SALAHDOB: Community [facility] [id number] [place] Number: Repository [address]Ctn: 330 [id number] [phone] () Date:2018-09-23 09/23/2018 Secondary DIONY CLAYTON [place] Insurance:MEDICAIDPol SALAHDOB: Community icy Number: [id number] Hospital [id number] Repository Date:2018-09-23 09/23/2018 Tertiary NOT GIVENUNK [place] Insurance:SELF PAY [facility] Number: Effective Repository Date:2018-09-23 09/23/2018 DIONY ARNOLD Primary DIONY [place] [id number] Insurance:MEDICARE SALAHDOB: Community [facility] [id number] Number: Repository [address]Npg: 330 [id number] [phone] (HP) Date:2018-09-23 09/23/2018 Secondary DIONY ARNOLD [place] Insurance:MEDICAIDPol SALAHDOB: Community icy Number: [id number] Hospital [id number] Repository Date:2018-09-23 09/23/2018 Tertiary NOT GIVENUNK [place] Insurance:SELF PAY [facility] Number: Effective Repository Date:2018-09-23 09/21/2018 DIONY Marrufo Primary DIONY Marrufo [place] [id number] Insurance:MEDICARE SALAHDOB: [facility] [id number] Number: Repository [address]Mwd: 330 [id number] [phone] (HP) Date:2018-09-20 09/21/2018 Secondary DIONY Marrufo [place] Insurance:MEDICAIDPol SALAHDOB: [facility] icy Number: [id number] Hospital [id number] Repository Date:2018-09-20 09/21/2018 Tertiary NOT GIVENUNK [place] Insurance:SELF PAY [facility] Number: Effective Repository Date:2018-09-20 09/21/2018 DIONY Marurfo Primary DIONY Marrufo [place] [id number] Insurance:MEDICARE SALAHDOB: Community [facility] [id number] [facility]aritan [facility], [place] Number: Repository [address]Coy: 330 [id number] [phone] (HP) Date:2018-09-20 09/21/2018 Secondary DIONY M [place] Insurance:MEDICAIDPol SALAHDOB: [facility] icy Number: [id number] Hospital [id number] Repository Date:2018-09-20 09/21/2018 Tertiary NOT GIVENUNK [place] Insurance:SELF PAY Community [facility] Number: Effective Repository Date:2018-09-20 09/21/2018 DIONY Marrufo Primary DIONY [place] [id number] Insurance:MEDICARE SALAHDOB: Community [facility] [id number], [place] Number: Repository [address]Amo: 330 [id number] [phone] (HP) Date:2018-09-20 09/21/2018 Secondary DIONY Marrufo [place] Insurance:MEDICAIDPol SALAHDOB: Community icy Number: [id number] Hospital [id number] Repository Date:2018-09-20 09/21/2018 Tertiary NOT GIVENUNK [place] Insurance:SELF PAY [facility] Number: Effective Repository Date:2018-09-21 09/21/2018 DIONY Marrufo Primary DIONY [place] [id number] Insurance:MEDICARE SALAHDOB: Community [facility] [id number] [facility]aritan [facility], [place] Number: Repository [address]Koo: 330 [id number] [phone] (HP) Date:2018-09-20 09/21/2018 Secondary DIONY Marrufo [place] Insurance:MEDICAIDPol SALAHDOB: Community icy Number: [id number] Hospital [id number] Repository Date:2018-09-20 09/21/2018 Tertiary NOT GIVENUNK [place] Insurance:SELF PAY [facility] Number: Effective Repository Date:2018-09-21 09/21/2018 DIONY Marrufo Primary DIONY [place] [id number] Insurance:MEDICARE SALAHDOB: Community [facility] [id number] Samaritan [facility], [place] Number: Repository [address]Nad: 330 [id number] [phone] (HP) Date:2018-09-20 09/21/2018 Secondary DIONY Marrufo [place] Insurance:MEDICAIDPol SALAHDOB: Community icy Number: [id number] Hospital [id number] Repository Date:2018-09-20 09/21/2018 Tertiary NOT GIVENUNK [place] Insurance:SELF PAY Community [facility] Number: Effective Repository Date:2018-09-21 09/05/2018 DIONY Marrufo Primary DIONY Marrufo [place] [id number] Insurance:MEDICARE SALAHDOB: Community [facility] [id number] [facility]aritan [facility] Number: Repository [address]Sgx: 330 [id number] [phone] (HP) Date:2018-09-05 09/05/2018 Secondary DIONY Marrufo [place] Insurance:MEDICAIDPol SALAHDOB: Community icy Number: [id number] Hospital [id number] Repository Date:2018-09-05 09/05/2018 Tertiary NOT GIVENUNK [place] Insurance:SELF PAY [facility] Number: Effective Repository Date:2018-09-05 08/29/2018 DIONY Marrufo Primary DIONY Marrufo [place] [id number] Insurance:MEDICARE [facility] [id number] Samaritan [facility], [place] Number: Repository [address]Drp: 330 [id number] [phone] (HP) Date:2018-08-29 08/29/2018 Secondary DIONY Marrufo [place] Insurance:MEDICAIDPol SALAHDOB: [facility] icy Number: [id number] Hospital [id number] Repository Date:2018-08-29 08/29/2018 Tertiary NOT GIVENUNK [place] Insurance:SELF PAY [facility] Number: Effective Repository Date:2018-08-29 08/25/2018 DIONY Marrufo Primary DIONY Marrufo [place] [id number] Insurance:MEDICARE SALAHDOB: Community [facility] [id number] Samaritan [facility], [place] Number: Repository [address]Vfz: 330 [id number] [phone] (HP) Date:2018-08-25 08/25/2018 Secondary DIONY Marrufo [place] Insurance:MEDICAIDPol SALAHDOB: [facility] icy Number: [id number] Hospital [id number] Repository Date:2018-08-25 08/25/2018 Tertiary NOT GIVENUNK [place] Insurance:SELF PAY Community [facility] Number: Effective Repository Date:2018-08-25 08/23/2018 DIONY Marrufo Primary DIONY [place] [id number] Insurance:MEDICARE SALAHDOB: Community [facility] [id number] Samaritan [facility] Number: Repository [address]Tih: 330 [id number] [phone] (HP) Date:2018-08-22 08/23/2018 Secondary DIONY Marrufo [place] Insurance:MEDICAIDPol SALAHDOB: [facility] icy Number: [id number] Hospital [id number] Repository Date:2018-08-22 08/23/2018 Tertiary NOT GIVENUNK [place] Insurance:SELF PAY [facility] Number: Effective Repository Date:2018-08-22 08/23/2018 DIONY Marrufo Primary DIONY Marrufo [place] [id number] Insurance:MEDICARE SALAHDOB: [facility] [id number] Samaritan [facility], [place] Number: Repository [address]Ldl: 330 [id number] [phone] (HP) Date:2018-08-22 08/23/2018 Secondary DIONY Marrufo [place] Insurance:MEDICAIDPol SALAHDOB: [facility] icy Number: [id number] Hospital [id number] Repository Date:2018-08-22 08/23/2018 Tertiary NOT GIVENUNK [place] Insurance:SELF PAY [facility] Number: Effective Repository Date:2018-08-23 08/22/2018 DIONY Marrufo Primary DIONY Marrufo [place] [id number] Insurance:MEDICARE SALAHDOB: Community [place] [id number] [place] Number: Repository [phone]: 330 [id number] [phone] (HP) Date:2018-08-22 08/22/2018 Secondary DIONY Marrufo [place] Insurance:MEDICAIDPol SALAHDOB: [facility] icy Number: [id number] [id number] Repository Date:2018-08-22 08/22/2018 Tertiary NOT GIVENUNK [place] Insurance:SELF PAY [facility] Number: Effective Repository Date:2018-08-22 08/22/2018 DIONY Marrufo Primary DIONY [place] [id number] Insurance:MEDICARE SALAHDOB: Community [place] [facility] [id number] [place] Number[place] Repository [id number]: 330 [id number] [phone] (HP) Date:2018-08-22 08/22/2018 Secondary DIONY Marrufo [place] Insurance:MEDICAIDPol SALAHDOB: [facility] icy Number: [id number] Hospital [id number] Repository Date:2018-08-22 08/22/2018 Tertiary NOT GIVENUNK [place] Insurance:SELF PAY [facility] Number: Effective Repository Date:2018-08-22 08/22/2018 DIONY Marrufo Primary DIONY Marrufo [place] [id number] Insurance:MEDICARE SALAHDOB: [facility] [id number] Number[place] Repository [id number]: 330 [id number] [phone] (HP) Date:2018-08-22 08/22/2018 Secondary DIONY Marrufo [place] Insurance:MEDICAIDPol SALAHDOB: [facility] icy Number: [id number] Hospital [id number] Repository Date:2018-08-22 08/22/2018 Tertiary NOT GIVENUNK [place] Insurance:SELF PAY [facility] Number: Effective Repository Date:2018-08-22 08/22/2018 DIONY Marrufo Primary DIONY Marrufo [place] [id number] Insurance:MEDICARE [facility] [id number] Number[place] Repository [phone]: 330 [id number] [phone] (HP) Date:2018-08-22 08/22/2018 Secondary DIONY Marrufo [place] Insurance:MEDICAIDPol SALAHDOB: [facility] icy Number: [id number] Hospital [id number] Repository Date:2018-08-22 08/22/2018 Tertiary NOT GIVENUNK [place] Insurance:SELF PAY [facility] Effective Rep[facility] Date:2018-08-22 08/22/2018 DIONY Marrufo Primary DIONY Marrufo [place] [id number] Insurance:MEDICARE SALAHDOB: Community [place] [facility] [id number] Number[place]ository [phone]: 330 [id number] [phone] (HP) Date:2018-08-22 08/22/2018 Secondary DIONY Mrarufo [place] Insurance:MEDICAIDPol SALAHDOB: [facility] icy Number: [id number] [id number] Repository Date:2018-08-22 08/22/2018 Tertiary NOT GIVENUNK [place] Insurance:SELF PAY [facility] Number: Effective Repository Date:2018-08-22 08/17/2018 DIONY Marrufo Primary DIONY Marrufo [place] [id number] Insurance:MEDICARE SALAHDOB: [facility] [place] [facility] [id number] Repository [id number]: 330 [id number] [phone] (HP) Date:2018-08-17 08/17/2018 Secondary DIONY Marrufo [place] Insurance:MEDICAIDPol SALAHDOB: [facility] icy Number: [id number] Hospital [id number] Repository Date:2018-08-17 08/17/2018 Tertiary NOT GIVENUNK [place] Insurance:SELF PAY [facility] Number: Effective Repository Date:2018-08-17 05/10/2018 Diony Marrufo Primary DIONY Marrufo [place] [id number] Insurance:MEDICARE MILLERDOB: Community [place] [id number] [place] Number[facility] Repository [id number]: 330 [id number] [phone] () Date:2018-05-10 05/10/2018 Secondary NOT GIVENUNK [place] Insurance:SELF PAY [facility] Number: Effective Repository Date:2018-05-10 04/18/2018 Primary DIONY Marrufo [facility] Insurance:MedicarePol MILLERDOB: [facility] icy Number: [id number] [facility] [id number] 1 [place] Repository Date:Plan Name:VIKTOR Ordaz [id number]: () 04/18/2018 [facility] DIONY [facility] Insurance:MedicarePol MILLERDOB: [place] [facility] icy Number: [id number] [facility] [id number] 1 [place] Repository Date:Plan Name:VIKTOR Ordaz [id number]: ()
== END 2018-09-09 12:30 | disposition home health service (06) | DRG 948 ==
PROVIDERS: Admitting Provider Family Medicine Geriatric Medicine; Family Provider Family Medicine; PCP Family Medicine; Referring Provider Family Medicine Geriatric Medicine; Visit Provider Family Medicine Geriatric Medicine
DX: R53.81 Other malaise (principal); L03.119 Cellulitis of unspecified part of limb; E78.5 Hyperlipidemia, unspecified; E11.621 Type 2 diabetes mellitus with foot ulcer; K21.9 Gastro-esophageal reflux disease without esophagitis; G25.81 Restless legs syndrome; D50.9 Iron deficiency anemia, unspecified; E83.42 Hypomagnesemia; E55.9 Vitamin D deficiency, unspecified; F32.9 Major depressive disorder, single episode, unspecified; E11.40 Type 2 diabetes mellitus with diabetic neuropathy, unspecified; G89.29 Other chronic pain; L97.529 Non-pressure chronic ulcer of other part of left foot with unspecified severity; E11.65 Type 2 diabetes mellitus with hyperglycemia; F41.9 Anxiety disorder, unspecified; Z86.19 Personal history of other infectious and parasitic diseases
CPT/HCPCS: 36415; 80048; 82962; 85025; 97110; 97116; 97163; 97166; 97530; 97535; 97802

== ENCOUNTER 2018-09-20 20:54 | Inpatient (IN) | payer MEDICARE, MEDICAID, SELFPAY ==
[2018-09-20 20:56] VITALS: BP 151/82; PULSE 108; RESP 18; TEMP 36.9; O2SAT 98; BMI 30.7
[2018-09-20 21:21] LABS: Bedside Glucose > 500 mg/dL (70-110)
--- NOTE | 2018-09-20 21:22 | EKG12_ITS ---
Test Reason : CP Blood Pressure : / mmHG Vent. Rate : 105 BPM Atrial Rate : 105 BPM P-R Int : 152 ms QRS Dur : 086 ms QT Int : 344 ms P-R-T Axes : 066 -01 083 degrees QTc Int : 454 ms Sinus tachycardia Septal infarct , age undetermined Abnormal ECG Confirmed by OTTO DELVALLE, DOMINIQUE ([id number]), assistant editor MARLON GALEANA ([id number]) on 09/22/2018 9:50:19 AM Referred By: DR SAVAGE Confirmed By:DOMINIQUE MENJIVAR MD
--- NOTE | 2018-09-20 21:23 | ED.VISSUMM ---
- ER Visit Summary Date of Service: 09/20/18 Chief Complaint: Chest pain , hyperglycemia History of Present Illness: The patient is a 53 F who presents for chest pain and hyperglycemia. Patient began having chest pain 2 hours prior to calling EMS. She also had nausea and diarrhea. She called EMS because she was in so much discomfort. Pain was left-sided radiating into the back. She checked her blood sugar at home and it was greater than 600. She took 25 units of insulin. Patient family found her on the floor crying but patient denies a fall. She just laid down because she was in pain. Patient denies any recent illness. She denies any medication noncompliance. Patient denies fever, sore throat, URI symptoms, shortness of breath, abdominal pain, or other complaints other than chronic restless leg. Patient does not smoke. Physical Examination: Vital signs: afebrile, hemodynamically stable, no hypoxia on room air General: well nourished, well developed, in no distress, constant large movements of the right lower extremity Skin: warm, dry, no rash, no pallor HEENT: normocephalic and atraumatic; PERRL, EOMI, dry mucous membranes Cardiovascular: Tachycardic rate and rhythm without murmurs, no peripheral edema, 2+ pulses all distal extremities Respiratory: No increased work of breathing, lungs are clear to auscultation bilaterally, no rales, rhonchi or wheezing Abdominal: Abdomen is soft, nontender with normoactive bowel sounds, no guarding or rebound, no masses MSK: Moves all extremities, no deformities, normal strength Neuro: Awake and alert, oriented ?4. No facial droop, sensation and motor function intact and symmetric Test Results: Abnormal Lab Results 09/20/18 09/20/18 09/20/18 21:13 21:45 21:45 WBC 9.2 RBC 4.13 L Hgb 11.7 L Hct 35.8 L MCV 86.7 MCH 28.3 MCHC 32.7 RDW 13.5 RDW Differential 42.3 Plt Count 362 MPV 10.8 Immature Gran % (Auto) 0.000 Neut % (Auto) 65.9 Lymph % (Auto) 24.0 Daniels % (Auto) 4.2 Eos % (Auto) 5.2 H Baso % (Auto) 0.7 Absolute Neuts (auto) 6.1 Absolute Lymphs (auto) 2.21 Total Counted Not Reportable Specimen Type Sample Site VBG pH VBG pO2 VBG O2 Sat (Calc) VBG O2 Content VBG Base Excess POC Mix VBG pCO2 Pt Tmp O2 Delivery Device Liter Flow Blood Gas Notified Whom Blood Gas Notified Time Sodium 137 Potassium 3.6 Chloride 101 Carbon Dioxide 24.0 Anion Gap 12 BUN 24 H Creatinine 1.12 H Estim Creat Clear Calc 54.38 Est GFR (MDRD) Af Amer 65 Est GFR (MDRD) Non-Af 54 L BUN/Creatinine Ratio 21.4 H Glucose 443 H Calcium 8.8 Phosphorus 3.4 Magnesium 1.9 Total Bilirubin 0.20 Direct Bilirubin 0.06 AST 17 ALT 31 Alkaline Phosphatase 104 Troponin I 0.253 H Total Protein 7.9 Albumin 3.6 Globulin 4.3 H POC Glucose > 500 H* 09/20/18 09/20/18 22:13 23:23 WBC RBC Hgb Hct MCV MCH MCHC RDW RDW Differential Plt Count MPV Immature Gran % (Auto) Neut % (Auto) Lymph % (Auto) Daniels % (Auto) Eos % (Auto) Baso % (Auto) Absolute Neuts (auto) Absolute Lymphs (auto) Total Counted Specimen Type SHAUN Sample Site L Brachial VBG pH 7.36 VBG pO2 45 H VBG O2 Sat (Calc) 79 H VBG O2 Content 23 VBG Base Excess -4 L POC Mix VBG pCO2 Pt Tmp 38.3 L O2 Delivery Device Nasal Can Liter Flow 2.0 Blood Gas Notified Whom ED MD Blood Gas Notified Time 2210 Sodium Potassium Chloride Carbon Dioxide Anion Gap BUN Creatinine Estim Creat Clear Calc Est GFR (MDRD) Af Amer Est GFR (MDRD) Non-Af BUN/Creatinine Ratio Glucose Calcium Phosphorus Magnesium Total Bilirubin Direct Bilirubin AST ALT Alkaline Phosphatase Troponin I Total Protein Albumin Globulin POC Glucose 227 H Clinical Impression(s) from Imaging Studies Chest X-Ray 09/20/18 21:35 IMPRESSION: Decreased inspiratory effort without acute cardiopulmonary disease or major interval change. Electronically Signed: Arben Richards DO at 22:04 EST Tel [phone], Service support , Medications Given Potassium Chloride 40 meq/ (Lactated Ringer's) 1,020 mls @ 250 mls/hr IV .Q4H5M TAB Last Admin: 09/20/18 23:27 Dose: 250 mls/hr Discontinued Medications Aspirin (Aspirin, Baby) 324 mg PO X1 ONE Stop: 09/20/18 22:35 Last Admin: 09/20/18 22:57 Dose: 324 mg Clopidogrel Bisulfate (Plavix) 300 mg PO X1 ONE Stop: 09/20/18 23:34 Last Admin: 09/21/18 00:11 Dose: 300 mg Enoxaparin Sodium (Lovenox) 90 mg SC X1 ONE Stop: 09/20/18 23:34 Last Admin: 09/21/18 00:11 Dose: 90 mg Sodium Chloride () 1,000 mls @ 999 mls/hr IV .Q1H1M ONE Stop: 09/20/18 22:22 Last Admin: 09/20/18 21:48 Dose: 999 mls/hr Emergency Department Course and Treatment: Blood sugar was 560. Patient was given IV fluids for hydration. Labs were performed. EKG showed a sinus tachycardia with no ischemic changes or ectopy. Patient's chest x-ray showed no acute process. BMP showed no anion gap, normal bicarb, glucose of 443. ABG showed a normal pH, normal CO2, no evidence of a metabolic acidosis. She was given lactated Ringer's with potassium chloride in anticipation that she might require insulin, and her potassium was on the low end of normal. Troponin was elevated at 0.253, and compared to patient's prior troponins, this is elevated. Patient was reevaluated and is not having any chest pain, shortness of breath, abdominal pain, back pain neck pain or any other symptoms at this time. Her blood sugar after IV fluids was 227. This was without any insulin given in the emergency department. Because of the elevated troponin and the chest pain at onset of patient's symptoms, she was discussed with Dr. Jean Baptiste. He recommended a dose of Lovenox and Plavix. He will see her first thing in the morning on consult. Patient was admitted to the hospitalist for further management of her hyperglycemia and of her resolved chest pain with elevated troponin. Treatment Plan: [] Disposition: [] Impression: Chest pain, elevated troponin, hyperglycemia This note was generated with Modern Feedation software. It may contain incorrect words, spelling, and punctuation that were not noted in review of the chart prior to signing ED Disposition - Plan for ED Patient: Disposition: Acute Care Hospital [facility] Chief Complaint: Hyperglycemia
--- NOTE | 2018-09-20 21:35 | RAD_ITS ---
STUDY: X-RAY CHEST REASON FOR EXAM: Female, 53 years old. Elevated blood sugar. Does chest pain. Patient states chest pain could be related to anxiety. TECHNIQUE: Single AP portable view of the chest. COMPARISON: May 10, 2018. FINDINGS: Telemetry wires overlie the chest. There is a slightly decreased inspiratory effort when compared to prior study. There is no new mass or infiltrate. There is no demonstrated pleural abnormality. Normal size heart. Normal mediastinum and elvie. Normal visualized pulmonary arteries. Normal visualized aortic arch and descending thoracic aorta. No visualized osseous changes. There is no demonstrated abnormality of the visualized soft tissue structures of the upper abdomen. RAD/Chest 1 View (Portable) IMPRESSION: Decreased inspiratory effort without acute cardiopulmonary disease or major interval change. Electronically Signed: Arben Richards DO at 22:04 EST Tel [phone], Service support ,
[2018-09-20] MEDS: 0.9% Normal Saline 1,000 ML 999 ML IV (21:48)
[2018-09-20 22:03] LABS: Absolute Lymphocyte Count 2.21 X10^3/ul (0.83-4.51); Absolute Neutrophil Count 6.1 X10^3/uL (2.0-7.7); Basophil# 0.06 X10^3/uL; Basophil% 0.7 % (0-1); Eosinophil# 0.48 X10^3/uL; Eosinophils% 5.2 % (0-5); Hematocrit 35.8 % (37-47); Hemoglobin 11.7 g/dl (12.0-15.0); Lymphocyte # 2.21 X10^3/ul (4.0); Mean Corp Hgb Conc 32.7 g/gl (32-36); Mean Corpuscular Hgb 28.3 pg (27.0-32.0); Mean Corpuscular Volume 86.7 fL (81-99); Mean Platelet Vol. 10.8 fl (6.2-12.0); Monocyte# 0.39 X10^3/uL; Monocyte% 4.2 % (0-10); Neutrophil # 6.05 X10^3/uL (2.7-7.7); Neutrophil % 65.9 % (47-70); Platelet Count 362 K/mm3 (150-450); RBC Distribution Width CV 13.5 % (11.6-14.6); RBC Distribution Width SD 42.3 fl (35.1-43.9); Red Blood Count 4.13 M/mm3 (4.2-5.4); White Blood Count 9.2 K/mm3 (4.4-11.0)
[2018-09-20 22:15] LABS: Blood Gas Specimen Type VEN; O2 Delivery Device Nasal Can; SITE L Brachial; Time Given 2210; VBG BASE EXCESS -4 mmol/L (-1.0-3.5); VBG Bicarbonate 22 mmol/L (22-26); VBG Oxygen Content 23 mmol/L (23-33); VBG PO2 45 mmHg (25-40); VBG SO2 79 % (50-70); VBG pCO2 38.3 mmHg (41-51); VBG pH 7.36 (7.32-7.42)
[2018-09-20 22:17] LABS: POSITIVE COUNT NO; POSITIVE DIFFERENTIAL NO; POSITIVE MORPHOLOGY NO
[2018-09-20 22:27] LABS: AST(SGOT) 17 U/L (15-37); Alanine Aminotransfer ALT/SGPT 31 U/L (13-56); Albumin, Serum 3.6 g/dL (3.2-5.0); Alkaline Phosphatase 104 U/L (45-117); Anion Gap 12 (5-15); BUN 24 mg/dL (7-18); BUN/Creat Ratio 21.4 RATIO (10-20); Bilirubin, Direct 0.06 mg/dL (0.00-0.30); Calcium,Total 8.8 mg/dL (8.5-10.1); Chloride 101 mmol/L (98-107); Creatinine, Serum 1.12 mg/dL (0.55-1.02); EST Glomerular Filtration Rate 54 mL/min (>60); Est Glom Filt Rate - Afr Amer 65 mL/min (>60); Estimated Creatinine Clearance 54.38 ml/min; Globulin 4.3 g/dL (2.2-4.2); Glucose 443 mg/dL (74-106); Magnesium 1.9 mg/dL (1.6-2.6); Phosphorus 3.4 mg/dL (2.5-4.9); Potassium 3.6 mmol/L (3.5-5.1); Protein, Total 7.9 g/dL (6.4-8.2); Sodium Level 137 mmol/L (136-145)
[2018-09-20] MEDS: Aspirin 81 MG TAB.CHEW 324 MG PO (22:57)
[2018-09-20 23:09] VITALS: BP 147/85; PULSE 99; RESP 19; O2SAT 99
[2018-09-20 23:36] LABS: Bedside Glucose 227 mg/dL (70-110)
--- NOTE | 2018-09-20 23:41 | HP.PCM_ITS ---
Problem List (1) NSTEMI (non-ST elevated myocardial infarction) Status: Acute (2) HLD (hyperlipidemia) Status: Chronic (3) RLS (restless legs syndrome) Status: Chronic (4) Type II diabetes mellitus, uncontrolled Status: Chronic (5) Diabetic foot ulcer associated with type 2 diabetes mellitus Status: Chronic History of Present Illness Date of Admission: 09/20/18 Chief Complaint: chest Pain The patient is a 53 year old F with a significant history of diabetes; hyperlipidemia who presented with excruciating sudden onset left-sided dull chest pain that radiated to her upper back. Her Pain was constant but it gradually eased up by the time that the paramedics came. Associated with her symptoms is nausea without vomiting. She denies any diaphoresis. She denies any alleviating or aggravating factors to her pain. At the time of her chest pain she also checked her blood glucose and her blood glucose was more than 600 for which reason she gave herself 25 units of short- acting insulin. At emergency department she was given IV fluids with potassium which dropped her blood glucose. She was found to have a normal pH and no anion gap. Cardiology was consulted and recommendation was to give therapeutic dose of Lovenox and to load patient with Plavix; and cardiology will see patient in a.m. Patient had elevated troponin at emergency department which trended up significantly. At the time of my examination patient reported that her chest pain had gone. Patient reported that in some time past she had chest pain for which reason she came to our hospital and was airlifted to the hospital. She reported that a cath at that time showed only Little blockage. She reports of 3 brothers who had heart cath in their 50S; and a sister at age 62 who had a CABG on the same day the patient presented to the emergency department (09/20/2018) Past Medical History Past Medical History (Chronic Problems): Chronic Problems HLD (hyperlipidemia) (Chronic) Cellulitis (Chronic) Neuropathic pain (Chronic) GERD (gastroesophageal reflux disease) (Chronic) Hypomagnesemia (Chronic) Back pain, chronic (Chronic) Hyponatremia (Chronic) Depression (Chronic) Diabetic foot ulcer associated with type 2 diabetes mellitus (Chronic) RLS (restless legs syndrome) (Chronic) Type II diabetes mellitus, uncontrolled (Chronic) Anxiety state (Chronic) Allergies oxycodone HCl [From OxyContin] Allergy (Verified 09/20/18 20:55) Rash Penicillins Allergy (Verified 09/20/18 20:55) Shortness of breath Home Medications: Ambulatory Orders Medication Instructions Recorded Acetaminophen [Tylenol] 650 mg PO Q6H PRN PRN 09/20/18 Ascorbic Acid [Vitamin C] 500 mg PO BIDCM 09/20/18 Celluvisc 1 drop OP 4X/DAY 09/20/18 Gabapentin [Neurontin] 800 mg PO TIDCM 09/20/18 Insulin Aspart [Novolog Flexpen 20 units SC TIDCM 09/20/18 ([facility])] Insulin Glargine [Lantus ([facility])] 30 units SC 0800 09/20/18 Omeprazole [Prilosec] 20 mg PO DAILY 09/20/18 Oxycodone [Oxyir] 5 mg PO Q8H PRN PRN 09/20/18 Ropinirole HCl [Requip] 3 mg PO BID 09/20/18 Rosuvastatin Calcium [Crestor] 40 mg PO DAILY 09/20/18 proMETHazine tablet [Phenergan 25 mg PO Q6H PRN 09/20/18 tablet] Surgical History: - - status post I&D of R foot 5th metatarsal abscess, 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 Bilateral carpal tunnel surgery 1994, right shoulder surgery in 1994, section x2. 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 She had had multiple strokes preceding that. Patient had 3 brothers who had bypass surgery in their 50s. Paternal History Items: - - Patient states her father when she was 5 years old, denies known medical history, denies known cardiac history. Sibling History Items: - - She has one brother who is secondary to cancer and she does not know what kind of cancer he had. She also has 3 brothers with a history of cardiovascular disease, stents and coronary artery bypass grafting. Review of Systems Constitutional: Denies: Chills, Fever, Weight Change HEENT: Denies: Head Aches, Sinus Congestion, Sinus Drainage Cardiovascular: Reports: Chest Pain. Denies: Palpitations Respiratory: Denies: Cough, Shortness of breath at rest, Sputum production Gastrointestinal: Reports: Nausea. Denies: Abdominal Pain, Vomiting Genitourinary: Denies: Dysuria Musculoskeletal: Reports: Back Pain. Denies: Joint Pain, Joint Tenderness Skin: Denies: Rash, Wounds Neurological: Denies: Numbness, Tingling, Focal weakness Psychiatric: Denies: Anxiety, Depression, Homicidal Ideations, Suicidal Ideations Hematologic/ Lymphatic: Denies: Easy Bruising, Easy Bleeding VTE Information - Inpt Only VTE Present on Admission: No VTE Mechan Device Prophylaxis: None VTE Pharm Prophylaxis ordered?: Yes Patient Problems: Active and Suspected Problems NSTEMI (non-ST elevated myocardial infarction) (Acute) - Physical Exam General: Alert, Oriented x3, Cooperative HEENT: Atraumatic, PERRLA, EOMI, Normocephalic Neck: Supple, No JVD, Negative Carotid Bruits, - - Tender chest. Lungs: Clear to auscultation, Normal air movement Cardiovascular: Regular rate, No murmurs Abdomen: Bowel Sounds Present, Soft, Non Tender Extremities: No edema, Capillary Refill Less than 3 Seconds Skin: No rashes, No breakdown Musculoskeletal: No Tenderness to Palpation of Joints or Extremities Neurological: Cranial nerves II-XII grossly intact Psych/Mental Status: Normal Affect, Appropriate Vital Signs Temp Pulse Resp BP Pulse Ox 98.5 F 99 19 H 147/85 H 99 09/20/18 20:56 09/20/18 23:09 09/20/18 23:09 09/20/18 23:09 09/20/18 23:09 Oxygen Delivery Method Room Air Weight: 86.4 kg Body Mass Index (BMI) 30.7 Finger Stick Blood Glucose 560 Laboratory Tests Past 24 Hrs 09/20/18 09/20/18 09/20/18 21:45 21:45 22:13 WBC 9.2 RBC 4.13 L Hgb 11.7 L Hct 35.8 L MCV 86.7 MCH 28.3 MCHC 32.7 RDW 13.5 RDW Differential 42.3 Plt Count 362 MPV 10.8 Immature Gran % (Auto) 0.000 Neut % (Auto) 65.9 Lymph % (Auto) 24.0 [place] % (Auto) 4.2 Eos % (Auto) 5.2 H Baso % (Auto) 0.7 Absolute Neuts (auto) 6.1 Absolute Lymphs (auto) 2.21 Total Counted Not Reportable Specimen Type SHAUN Sample Site L Brachial VBG pH 7.36 VBG pO2 45 H VBG O2 Sat (Calc) 79 H VBG O2 Content 23 VBG Base Excess -4 L POC Mix VBG pCO2 Pt Tmp 38.3 L O2 Delivery Device Nasal Can Liter Flow 2.0 Blood Gas Notified Whom ED Blood Gas Notified Time 2210 Sodium 137 Potassium 3.6 Chloride 101 Carbon Dioxide 24.0 Anion Gap 12 BUN 24 H Creatinine 1.12 H Estim Creat Clear Calc 54.38 Est GFR (MDRD) Af Amer 65 Est GFR (MDRD) Non-Af 54 L BUN/Creatinine Ratio 21.4 H Glucose 443 H Calcium 8.8 Phosphorus 3.4 Magnesium 1.9 Total Bilirubin 0.20 Direct Bilirubin 0.06 AST 17 ALT 31 Alkaline Phosphatase 104 Troponin I 0.253 H Total Protein 7.9 Albumin 3.6 Globulin 4.3 H POC Glucose 09/20/18 09/20/18 23:23 21:13 POC Glucose 227 H > 500 H* Assessment/Plan All Active Problems NSTEMI (non-ST elevated myocardial infarction) (Acute) Hepatitis B (Resolved) The patient is a 53 year old F with a significant history of diabetes; hyperlipidemia who presented with excruciating sudden onset left-sided dull chest pain that radiated to her upper back; and with a strong family history of heart disease who was found to have steady increase in her troponin consistent with non-ST elevation VT. Chest pain Admit to a monitored bed on PCU CXR independently reviewed confirms non acute cardiopulmonary process EKG did not show ST elevations. Received aspirin 324 at emergency department ASA 81 mg p.o. daily ordered; SL NTG 0.4 mg prn as needed for chest pain Morphine as needed for chest pain. Serial cardiac enzymes shows trending troponin. Stat EKG as needed for chest pain. Received therapeutic dose of Lovenox at emergency department. Received loading dose of aspirin at emergency department. Maintenance dose of Plavix continued. On home Rosuvastatin 40 mg daily. Will change to Lipitor 80 mg while inpatient here. Fasting Lipids ordered. We will start patient on low-dose metoprolol. Cardiology consult for evaluation for possible cardiac cath. Case was discussed with application security consultant. Acute hyperglycemia On admission blood glucose was not within goal. At home patient reported blood glucose of more than 600 for which she took 25 units of short-acting insulin. Patient takes Lantus 30 units every morning. However on the day of admission she reported that because she was busy she did not take her morning dose of Lantus. Likely her acute hypoglycemia was because she did not take her morning dose of Lantus. Correction scale insulin for every 4 hours while patient n.p.o. Normal saline with potassium as patient is npo for preparation for likely cath. Left lateral diabetic ulcer. Patient reported that she had a wound VAC that was removed on the same day of admission. Patient reported that she had a debridement and was on p.o. and IV antibiotics for infection. She completed antibiotic therapy. Wound care consult. Home oxycodone as needed continued Hyperlipidemia We will check fasting lipids On home rosuvastatin. Will change to Lipitor 80 mg while inpatient. Elevated Blood pressure without diagnosis of HTN Because of concomitant non-ST elevation VT we will start patient on metoprolol 12.5 mg p.o. twice daily. DVT prophylaxis Not indicated at this time as patient received therapeutic dosing for non-ST elevation VT. Consider DVT prophylaxis when indicated in due course. Code Visit Inpatient E&M: 74618 Init Hosp L3
[2018-09-21] VITALS (44 sets, daily range): BP systolic 66–156; BP diastolic 31–93; PULSE 46–100; RESP 11–24; TEMP 36.4–37.1; O2SAT 96–100; BMI 29.3; BMI 29.4
[2018-09-21] MEDS: Enoxaparin 100 MG/ML Syringe 90 MG SC (00:11)
[2018-09-21] MEDS: Clopidogrel Bisulfate 300 MG Tablet PO (00:11)
--- NOTE | 2018-09-21 01:51 | EKG12_ITS ---
Test Reason : ADMITIING CP EKG Blood Pressure : / mmHG Vent. Rate : 092 BPM Atrial Rate : 092 BPM P-R Int : 158 ms QRS Dur : 088 ms QT Int : 330 ms P-R-T Axes : 043 016 093 degrees QTc Int : 408 ms Normal sinus rhythm Septal infarct , age undetermined Abnormal ECG When compared with ECG of 20-SEP-2018 21:17, MANUAL COMPARISON REQUIRED, DATA IS UNCONFIRMED Confirmed by OTTO DELVALLE, DOMINIQUE ([id number]), sound editor MARLON GALEANA ([id number]) on 09/22/2018 10:59:58 AM Referred By: MEGGAN Confirmed By:DOMINIQUE MENJIVAR MD
[2018-09-21] MEDS: Atorvastatin Calcium 80 MG Tablet PO ×2 (03:40→21:26)
[2018-09-21] MEDS: Metoprolol Tartrate 25 MG Tablet 12.5 MG PO ×2 (03:41→06:22)
[2018-09-21 04:14] LABS: Absolute Lymphocyte Count 2.13 X10^3/ul (0.83-4.51); Basophil# 0.06 X10^3/uL; Basophil% 0.7 % (0-1); Eosinophil# 0.41 X10^3/uL; Eosinophils% 4.5 % (0-5); Hematocrit 32.3 % (37-47); Hemoglobin 10.8 g/dl (12.0-15.0); Lymphocyte # 2.13 X10^3/ul (4.0); Lymphocyte % 23.1 % (19-41); Mean Corp Hgb Conc 33.4 g/gl (32-36); Mean Corpuscular Volume 86.6 fL (81-99); Mean Platelet Vol. 10.9 fl (6.2-12.0); Monocyte# 0.63 X10^3/uL; Monocyte% 6.8 % (0-10); Neutrophil # 5.96 X10^3/uL (2.7-7.7); Neutrophil % 64.7 % (47-70); Platelet Count 332 K/mm3 (150-450); RBC Distribution Width CV 13.1 % (11.6-14.6); RBC Distribution Width SD 39.7 fl (35.1-43.9); Red Blood Count 3.73 M/mm3 (4.2-5.4); White Blood Count 9.2 K/mm3 (4.4-11.0)
[2018-09-21 04:18] LABS: POSITIVE COUNT NO; POSITIVE DIFFERENTIAL NO; POSITIVE MORPHOLOGY NO
[2018-09-21 04:30] LABS: International Normalized Ratio 1.1; Prothrombin Time (Protime)PT. 14.4 SECONDS (11.7-14.9)
[2018-09-21 04:31] LABS: Partial Thromboplast Time 39.4 Seconds (24.1-36.2)
[2018-09-21 04:49] LABS: Anion Gap 10 (5-15); BUN 17 mg/dL (7-18); BUN/Creat Ratio 24.2 RATIO (10-20); Calcium,Total 8.5 mg/dL (8.5-10.1); Chloride 108 mmol/L (98-107); EST Glomerular Filtration Rate 93 mL/min (>60); Est Glom Filt Rate - Afr Amer 112 mL/min (>60); Estimated Creatinine Clearance 87.01 ml/min; Glucose 149 mg/dL (74-106); Potassium 3.8 mmol/L (3.5-5.1); Sodium Level 141 mmol/L (136-145)
[2018-09-21 04:52] LABS: Cholesterol 248 mg/dL (200); High Density Lipoprotein 43 mg/dL; Triglycerides 293 mg/dL; Very Low Density Lipoprotein 59 mg/dL (5-40)
[2018-09-21] MEDS: Clopidogrel Bisulfate 75 MG Tablet PO (06:22)
[2018-09-21] MEDS: Gabapentin 800 MG Tablet PO ×3 (06:22→19:28)
[2018-09-21] MEDS: Aspirin E.C. 81 MG Tablet PO (06:22)
[2018-09-21] MEDS: Pramipexole Di-HCl 0.5 MG Tablet 1.5 MG PO ×2 (06:23→21:26)
[2018-09-21 06:36] LABS: Bedside Glucose 212 mg/dL (70-110)
--- NOTE | 2018-09-21 06:41 | PCM.CONS.C ---
Reason for Consult Date of Consultation: 09/21/18 Reason for Consultation: Chest pain History of Present Illness: The patient is a 53 year old F with a history of diabetes mellitus who presented to the emergency room with chest discomfort. She says that she started having the above approximately 2 hours prior to calling the emergency medical services. She described it as a heaviness as well as radiating to the left side of her neck and back. She apparently was in so much discomfort that she is also called her family members who found her on the floor. She was brought to the emergency room was evaluated she was noted to have an elevated blood sugar. Her blood sugar was apparently elevated at home as well and she took 25 units of insulin. An electrocardiogram performed in the emergency room did not demonstrate any significant ischemic changes her cardiac troponin enzymes were mildly abnormal. Cardiology was called in the emergency room for evaluation and management. Since being admitted to the progressive care unit she has denied any worsening of her chest discomfort. She thinks that she has had some twinges however since admission. At this particular time she is free of any chest discomfort. She has had no dizziness or diaphoresis no near syncope or syncope. [] Past Medical History Allergies/Adverse Reactions: Allergies oxycodone HCl [From OxyContin] Allergy (Verified 09/20/18 20:55) Rash Penicillins Allergy (Verified 09/20/18 20:55) Shortness of breath Home Medications: Ambulatory Orders Medication Instructions Recorded Acetaminophen [Tylenol] 650 mg PO Q6H PRN PRN 09/20/18 Ascorbic Acid [Vitamin C] 500 mg PO BIDCM 09/20/18 Celluvisc 1 drop OP 4X/DAY 09/20/18 Gabapentin [Neurontin] 800 mg PO TIDCM 09/20/18 Insulin Aspart [Novolog Flexpen 20 units SC TIDCM 09/20/18 ([facility])] Insulin Glargine [Lantus ([facility])] 30 units SC 0800 09/20/18 Omeprazole [Prilosec] 20 mg PO DAILY 09/20/18 Oxycodone [Oxyir] 5 mg PO Q8H PRN PRN 09/20/18 Ropinirole HCl [Requip] 3 mg PO BID 09/20/18 Rosuvastatin Calcium [Crestor] 40 mg PO DAILY 09/20/18 proMETHazine tablet [Phenergan 25 mg PO Q6H PRN 09/20/18 tablet] Past Medical History (Chronic Problems): Chronic Problems HLD (hyperlipidemia) (Chronic) Cellulitis (Chronic) Neuropathic pain (Chronic) GERD (gastroesophageal reflux disease) (Chronic) Hypomagnesemia (Chronic) Back pain, chronic (Chronic) Hyponatremia (Chronic) Depression (Chronic) RLS (restless legs syndrome) (Chronic) Type II diabetes mellitus, uncontrolled (Chronic) Anxiety state (Chronic) Surgical History: - - status post I&D of R foot 5th metatarsal abscess, 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 Bilateral carpal tunnel surgery 1994, right shoulder surgery in 1994, section x2. 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 She had had multiple strokes preceding that. Patient had 3 brothers who had bypass surgery in their 50s. Paternal History Items: - - Patient states her father when she was 5 years old, denies known medical history, denies known cardiac history. Sibling History Items: - - She has one brother who is secondary to cancer and she does not know what kind of cancer he had. She also has 3 brothers with a history of cardiovascular disease, stents and coronary artery bypass grafting. Smoking Status: Never smoker Alcohol: None Review of Systems - Review of Systems General: Denies: Fever, Night Sweats, Fatigue HEENT: Denies: Vision Change Cardiovascular: Reports: Chest Discomfort, Chest Discomfort at Rest, Chest Tightness. Denies: Shortness of Breath, Orthopnea, PND, Peripheral Edema, Palpitations, Lightheadedness, Dizziness, Near Syncope, Syncope Respiratory: Denies: Cough, Sputum Production, Hemoptysis Gastrointestinal: Denies: Indigestion, Hematemesis, Hematochezia, Melena Genitourinary: Denies: Dysuria, Hematuria Muscoloskeletal: Denies: Myalgias Skin: Denies: Rash Neurological: Denies: Dizziness Psychiatric: Reports: Anxiety Endocrine: Denies: Unexplained Weight Loss Hematologic/ Lymphatic: Denies: Anemia Subjectve: Lady in no distress Objective: Vital Signs Temp Pulse Resp BP Pulse Ox 97.6 F L 84 18 131/77 H 98 09/21/18 03:40 09/21/18 06:22 09/21/18 03:40 09/21/18 03:40 09/21/18 03:40 Oxygen Flow Rate (L/min) 2 Oxygen Delivery Method Nasal Cannula Weight: 182 lb 12.211 oz Body Mass Index (BMI) 29.3 Finger Stick Blood Glucose 227 Intake and Output for Last 24 Hours 09/19/18 09/20/18 09/21/18 23:59 23:59 23:59 Intake Total 1277 / 1277 Output Total 675 / 675 Balance 602 / 602 General: Awake, Alert, Oriented x 3 HEENT: PERRL, EOMI, Sclera Non Icteric Neck: Supple, Good ROM, No Lymph Node Enlargement Lungs: Clear to auscultation Cardiovascular: Regular Rhythm, Normal S1, Normal S2, No Murmurs, No Rubs, No Gallops Vascular: No Carotid Bruits, Normal Femoral Pulses, Normal Radial Pulses, Normal Dorsalis Pedal Pulse, Normal Posterior Tibial Pulses Abdomen: Bowel Sounds Present, Soft, Non Tender, No HSM, No Organomegaly Extremities: No Cyanosis, No Clubbing, No edema Skin: Ulcers Lymphatic: No Lymph Node Enlargement Neurological: No Focal Motor or Sensory Deficit Psych/Mental Status: Flat Affect 09/20/18 21:45: WBC 9.2, RBC 4.13 L, Hgb 11.7 L, Hct 35.8 L, MCV 86.7, MCH 28.3, MCHC 32.7, RDW 13.5, RDW Differential 42.3, Plt Count 362, MPV 10.8, Immature Gran % (Auto) 0.000, Neut % (Auto) 65.9, Lymph % (Auto) 24.0, [place] % (Auto) 4.2, Eos % (Auto) 5.2 H, Baso % (Auto) 0.7, Absolute Neuts (auto) 6.1, Total Counted Not Reportable 09/20/18 21:45: Sodium 137, Potassium 3.6, Chloride 101, Carbon Dioxide 24.0, Anion Gap 12, BUN 24 H, Creatinine 1.12 H, Est GFR (MDRD) Af Amer 65, Est GFR (MDRD) Non-Af 54 L, BUN/Creatinine Ratio 21.4 H, Glucose 443 H, Calcium 8.8, Phosphorus 3.4, Magnesium 1.9, Total Bilirubin 0.20, Direct Bilirubin 0.06, Troponin I 0.253 H 09/20/18 22:13: VBG pH 7.36, VBG pO2 45 H, VBG O2 Sat (Calc) 79 H, VBG O2 Content 23, VBG Base Excess -4 L 09/21/18 01:20: Troponin I 3.210 H* 09/21/18 03:48: Troponin I 5.020 H* 09/21/18 03:48: Triglycerides 293 H, Cholesterol 248 H, LDL Cholesterol 146 H, VLDL Cholesterol 59 H, HDL Cholesterol 43 09/21/18 03:48: WBC 9.2, RBC 3.73 L, Hgb 10.8 L, Hct 32.3 L, MCV 86.6, MCH 29.0, MCHC 33.4, RDW 13.1, RDW Differential 39.7, Plt Count 332, MPV 10.9, Immature Gran % (Auto) 0.200, Neut % (Auto) 64.7, Lymph % (Auto) 23.1, [place] % (Auto) 6.8, Eos % (Auto) 4.5, Baso % (Auto) 0.7, Absolute Neuts (auto) 6.0, Total Counted Not Reportable 09/21/18 03:48: PT 14.4, INR 1.1, APTT 39.4 H 09/21/18 03:48: Sodium 141, Potassium 3.8, Chloride 108 H, Carbon Dioxide 23.0, Anion Gap 10, BUN 17, Creatinine 0.70, Est GFR (MDRD) Af Amer 112, Est GFR (MDRD) Non-Af 93, BUN/Creatinine Ratio 24.2 H, Glucose 149 H, Calcium 8.5 Rhythm: EKG: Normal sinus rhythm with no acute changes Assessment/Plan 1. Chest pain-NSTEMI Patient presents with chest discomfort and is noted to have a non-ST elevation myocardial infarction. Agree with the plan as instituted Continue aspirin Continue beta-kunal Patient loaded with clopidogrel High intensity statin Will scheduled for cardiac catheterization this morning. The risk benefits and alternatives explained to the patient who understands and agrees to proceed 2. Hyperlipidemia The patient has markedly elevated lipid profile High intensity statins have been recommended 3. Hypertension Patient noted to be hypertensive on presentation and will recommend starting an MYLA inhibitor in addition to the beta-kunal Thank you for allowing me to participate in the care of your patient. Please don't hesitate to call if any issues arise
[2018-09-21] MEDS: 0.9% Normal Saline 1,000 ML 15 ML IV (06:43)
--- NOTE | 2018-09-21 06:45 | CON.PCM_ITS ---
Reason for Consult Date of Consultation: 09/21/18 Reason for Consultation: Chest pain History of Present Illness: The patient is a 53 year old F with a history of diabetes mellitus who presented to the emergency room with chest discomfort. She says that she started having the above approximately 2 hours prior to calling the emergency medical services. She described it as a heaviness as well as radiating to the left side of her neck and back. She apparently was in so much discomfort that she is also called her family members who found her on the floor. She was brought to the emergency room was evaluated she was noted to have an elevated blood sugar. Her blood sugar was apparently elevated at home as well and she took 25 units of insulin. An electrocardiogram performed in the emergency room did not demonstrate any significant ischemic changes her cardiac troponin enzymes were mildly abnormal. Cardiology was called in the emergency room for evaluation and management. Since being admitted to the progressive care unit she has denied any worsening of her chest discomfort. She thinks that she has had some twinges however since admission. At this particular time she is free of any chest discomfort. She has had no dizziness or diaphoresis no near syncope or syncope. [] Past Medical History Allergies/Adverse Reactions: Allergies oxycodone HCl [From OxyContin] Allergy (Verified 09/20/18 20:55) Rash Penicillins Allergy (Verified 09/20/18 20:55) Shortness of breath Home Medications: Ambulatory Orders Medication Instructions Recorded Acetaminophen [Tylenol] 650 mg PO Q6H PRN PRN 09/20/18 Ascorbic Acid [Vitamin C] 500 mg PO BIDCM 09/20/18 Celluvisc 1 drop OP 4X/DAY 09/20/18 Gabapentin [Neurontin] 800 mg PO TIDCM 09/20/18 Insulin Aspart [Novolog Flexpen 20 units SC TIDCM 09/20/18 ([facility])] Insulin Glargine [Lantus (BK)] 30 units SC 0800 09/20/18 Omeprazole [Prilosec] 20 mg PO DAILY 09/20/18 Oxycodone [Oxyir] 5 mg PO Q8H PRN PRN 09/20/18 Ropinirole HCl [Requip] 3 mg PO BID 09/20/18 Rosuvastatin Calcium [Crestor] 40 mg PO DAILY 09/20/18 proMETHazine tablet [Phenergan 25 mg PO Q6H PRN 09/20/18 tablet] Past Medical History (Chronic Problems): Chronic Problems HLD (hyperlipidemia) (Chronic) Cellulitis (Chronic) Neuropathic pain (Chronic) GERD (gastroesophageal reflux disease) (Chronic) Hypomagnesemia (Chronic) Back pain, chronic (Chronic) Hyponatremia (Chronic) Depression (Chronic) RLS (restless legs syndrome) (Chronic) Type II diabetes mellitus, uncontrolled (Chronic) Anxiety state (Chronic) Surgical History: - - status post I&D of R foot 5th metatarsal abscess, 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 Bilateral carpal tunnel surgery 1994, right shoulder surgery in 1994, section x2. 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 She had had multiple strokes preceding that. Patient had 3 brothers who had bypass surgery in their 50s. Paternal History Items: - - Patient states her father when she was 5 years old, denies known medical history, denies known cardiac history. Sibling History Items: - - She has one brother who is secondary to cancer and she does not know what kind of cancer he had. She also has 3 brothers with a history of cardiovascular disease, stents and coronary artery bypass grafting. Smoking Status: Never smoker Alcohol: None Review of Systems - Review of Systems General: Denies: Fever, Night Sweats, Fatigue HEENT: Denies: Vision Change Cardiovascular: Reports: Chest Discomfort, Chest Discomfort at Rest, Chest Tightness. Denies: Shortness of Breath, Orthopnea, PND, Peripheral Edema, Palpitations, Lightheadedness, Dizziness, Near Syncope, Syncope Respiratory: Denies: Cough, Sputum Production, Hemoptysis Gastrointestinal: Denies: Indigestion, Hematemesis, Hematochezia, Melena Genitourinary: Denies: Dysuria, Hematuria Muscoloskeletal: Denies: Myalgias Skin: Denies: Rash Neurological: Denies: Dizziness Psychiatric: Reports: Anxiety Endocrine: Denies: Unexplained Weight Loss Hematologic/ Lymphatic: Denies: Anemia Subjectve: Lady in no distress Objective: Vital Signs Temp Pulse Resp BP Pulse Ox 97.6 F L 84 18 131/77 H 98 09/21/18 03:40 09/21/18 06:22 09/21/18 03:40 09/21/18 03:40 09/21/18 03:40 Oxygen Flow Rate (L/min) 2 Oxygen Delivery Method Nasal Cannula Weight: 182 lb 12.211 oz Body Mass Index (BMI) 29.3 Finger Stick Blood Glucose 227 Intake and Output for Last 24 Hours 09/19/18 09/20/18 09/21/18 23:59 23:59 23:59 Intake Total 1277 / 1277 Output Total 675 / 675 Balance 602 / 602 General: Awake, Alert, Oriented x 3 HEENT: PERRL, EOMI, Sclera Non Icteric Neck: Supple, Good ROM, No Lymph Node Enlargement Lungs: Clear to auscultation Cardiovascular: Regular Rhythm, Normal S1, Normal S2, No Murmurs, No Rubs, No Gallops Vascular: No Carotid Bruits, Normal Femoral Pulses, Normal Radial Pulses, Normal Dorsalis Pedal Pulse, Normal Posterior Tibial Pulses Abdomen: Bowel Sounds Present, Soft, Non Tender, No HSM, No Organomegaly Extremities: No Cyanosis, No Clubbing, No edema Skin: Ulcers Lymphatic: No Lymph Node Enlargement Neurological: No Focal Motor or Sensory Deficit Psych/Mental Status: Flat Affect 09/20/18 21:45: WBC 9.2, RBC 4.13 L, Hgb 11.7 L, Hct 35.8 L, MCV 86.7, MCH 28.3, MCHC 32.7, RDW 13.5, RDW Differential 42.3, Plt Count 362, MPV 10.8, Immature Gran % (Auto) 0.000, Neut % (Auto) 65.9, Lymph % (Auto) 24.0, [place] % (Auto) 4.2, Eos % (Auto) 5.2 H, Baso % (Auto) 0.7, Absolute Neuts (auto) 6.1, Total Counted Not Reportable 09/20/18 21:45: Sodium 137, Potassium 3.6, Chloride 101, Carbon Dioxide 24.0, Anion Gap 12, BUN 24 H, Creatinine 1.12 H, Est GFR (MDRD) Af Amer 65, Est GFR (MDRD) Non-Af 54 L, BUN/Creatinine Ratio 21.4 H, Glucose 443 H, Calcium 8.8, Phosphorus 3.4, Magnesium 1.9, Total Bilirubin 0.20, Direct Bilirubin 0.06, Troponin I 0.253 H 09/20/18 22:13: VBG pH 7.36, VBG pO2 45 H, VBG O2 Sat (Calc) 79 H, VBG O2 Content 23, VBG Base Excess -4 L 09/21/18 01:20: Troponin I 3.210 H* 09/21/18 03:48: Troponin I 5.020 H* 09/21/18 03:48: Triglycerides 293 H, Cholesterol 248 H, LDL Cholesterol 146 H, VLDL Cholesterol 59 H, HDL Cholesterol 43 09/21/18 03:48: WBC 9.2, RBC 3.73 L, Hgb 10.8 L, Hct 32.3 L, MCV 86.6, MCH 29.0, MCHC 33.4, RDW 13.1, RDW Differential 39.7, Plt Count 332, MPV 10.9, Immature Gran % (Auto) 0.200, Neut % (Auto) 64.7, Lymph % (Auto) 23.1, Oxford % (Auto) 6.8, Eos % (Auto) 4.5, Baso % (Auto) 0.7, Absolute Neuts (auto) 6.0, Total Counted Not Reportable 09/21/18 03:48: PT 14.4, INR 1.1, APTT 39.4 H 09/21/18 03:48: Sodium 141, Potassium 3.8, Chloride 108 H, Carbon Dioxide 23.0, Anion Gap 10, BUN 17, Creatinine 0.70, Est GFR (MDRD) Af Amer 112, Est GFR (MDRD) Non-Af 93, BUN/Creatinine Ratio 24.2 H, Glucose 149 H, Calcium 8.5 Rhythm: EKG: Normal sinus rhythm with no acute changes Assessment/Plan 1. Chest pain-NSTEMI * Patient presents with chest discomfort and is noted to have a non-ST elevation myocardial infarction. * Agree with the plan as instituted * Continue aspirin * Continue beta-kunal * Patient loaded with clopidogrel * High intensity statin * Will scheduled for cardiac catheterization this morning. The risk benefits and alternatives explained to the patient who understands and agrees to proceed * 2. Hyperlipidemia * The patient has markedly elevated lipid profile * High intensity statins have been recommended * 3. Hypertension * Patient noted to be hypertensive on presentation and will recommend starting an MYLA inhibitor in addition to the beta-kunal * Thank you for allowing me to participate in the care of your patient. Please don't hesitate to call if any issues arise
--- NOTE | 2018-09-21 06:50 | ECHOD_ITS ---
Reason For Study: S/P NM Procedure This was a 2D Doppler, Color Flow transthoracic echocardiogram. Exam performed portable in ICU/CCU. Left Ventricle Normal LV size. The estimated ejection fraction is 50 %. Stage 1 diastolic dysfunction. Mild segmental systolic dysfunction (see wall motion). Perris : Hypokinetic. Right Ventricle Normal RV size. Normal systolic function. Atria Normal left atrium. Normal right atrium. Mitral Valve Normal mitral valve. Mild (1+) eccentric mitral valve insufficiency. Tricuspid Valve Normal tricuspid valve. Mild tricuspid valve insufficiency. Pulmonary artery systolic pressure is 26 mmHg. Aortic Valve Normal aortic valve. Pulmonic Valve Normal pulmonic valve. Great Vessels Normal aortic root. The pulmonary artery is normal size. Normal inferior vena cava. Pericardium/Pleural No pericardial effusion. MMode/2D Measurements & Calculations LVIDd: 4.5 cm IVSd: 0.97 cm Ao root diam: 2.9 cm LVIDs: 3.0 cm LVPWd: 1.0 cm RVDd: 2.7 cm FS: 33.1 % LAV(MOD-bp): 52.0 ml EDV(MOD-sp4): 106.1 ml EDV(MOD-sp2): 85.1 ml LAV(MOD-bp) Indexed: 27.1 ml/m2 ESV(MOD-sp4): 51.9 ml EF(MOD-sp2): 55.2 % LAV(MOD-sp2): 41.6 ml EF(MOD-sp4): 51.1 % LAV(MOD-sp4): 55.5 ml SV(MOD-sp4): 54.2 ml SV(MOD-sp2): 46.9 ml LA A4 area: 19.6 cm2 LA dimension(2D): 3.9 cm RA A4 area: 12.9 cm2 Time Measurements MV dec time: 0.16 sec Doppler Measurements & Calculations MV E max rhys: 86.1 cm/sec Lat Peak E' Rhys: 7.7 cm/sec Med Peak E' Rhys: 5.9 cm/sec MV A max rhys: 103.1 cm/sec E/E' lat: 11.2 E/E' med: 14.5 MV E/A: 0.84 Ao V2 max: 121.2 cm/sec LV V1 max: 81.4 cm/sec PA V2 max: 99.3 cm/sec Ao max P.9 mmHg LV V1 max P.7 mmHg TR max rhys: 238.6 cm/sec TR max P.9 mmHg Interpretation Summary Normal LV size. The estimated ejection fraction is 50 %. Stage 1 diastolic dysfunction. Mild tricuspid valve insufficiency. Perris : Hypokinetic. Mild segmental systolic dysfunction (see wall motion). Ordering Physician: Saravanan Jean Baptiste Referring Physician: MD Jeaneth Raúl Performed By: Judit Cr, ELENI, RVT
[2018-09-21] MEDS: Lisinopril 5 MG Tablet PO (07:05)
--- NOTE | 2018-09-21 08:09 | CL.D_ITS ---
Patient Name: DIONY ROCHA Study Date: 09/21/2018 Performing: Saravanan Jean Baptiste MD Ht: 66.14 inches 168 cm : 1965 Wt: 182.98 lbs 83 kg Age: 53 Gender: female BSA: 1.93 PROCEDURE(S) PERFORMED IL25-OBZ/COR/LV QR68-PCI W OR WO PTCA, SINGLE CORONARY ARTERY CLINICAL PROFILE AND INDICATIONS Indications: ACS <= 24 hrs Heart Failure: None Stress/Imaging Stress/Image Study Performed: No CONCLUSIONS Significant disease noted in the proximal mid and distal LAD and moderate disease in the left circumf dawson artery. RECOMMENDATIONS Referred for immediate PCI DESCRIPTION OF PROCEDURE The patient arrived to the procedure lab. The risks and benefits of the procedure as well as a full d escription of our services here and current unavailability of surgical backup were fully explained to the patient and/or their significant other prior to the catheterization. The Timeout was completed, verifying the correct patient and procedure. The patient's procedural site was prepped and draped in the usual fashion. Local anesthetic was given subcutaneously to right groin region with Lidocaine 2%. Using a modified Seldinger technique, arterial access was obtained via the right femoral artery, a 5 Fr sheath was inserted. Left Coronary Artery selective angiography was performed in multiple views u sing a 5 Fr. JL4 catheter. Right Coronary Artery selective angiography was then performed in multiple views using a 5 Fr. 3DRC (Timmy) catheter. Left Ventriculography was performed in SERNA projection using a 5 Fr. Pigtail catheter. LV to AO pullback pressures were then recorded. CORONARY ANGIOGRAPHY DOMINANCE: Right Dominant LEFT HEART ASSESSMENT Left Ventricular Ejection Fraction: by LV Gram 45 % Anterior Hypokinesis - Mild Depressed Left Ventricular systolic function LEFT MAIN: Angiographically normal LEFT ANTERIOR DECENDING ARTERY: PROX LAD: 50 % Stenosis MID LAD: 80 % Stenosis DISTAL LAD: 70 % Stenosis CIRCUMFLEX ARTERY: MID CIRC: 60 % Stenosis RIGHT CORONARY ARTERY: Angiographically normal COMPLICATIONS PROCEDURE MEDICATIONS Versed 1 mg IV Versed 1 mg IV Oxygen: 2 L/min via nasal cannula SUMMARY OF HEMODYNAMIC DATA Time AIR REST ECG 07:23:48 AO 137/70 (93) SA 07:48:50 AO 111/70 (88) 07:53:34 LV 111/13, 20 07:59:35 LV 113/12, 18 07:59:41 LV 110/5, 21 08:00:21 LVp 110/4, 21 08:00:24 AO 104/55 (76) 08:00:29 Signed By Saravanan Jean Baptiste MD On 09/21/2018 08:09:34 Saravanan Jean Baptiste MD
[2018-09-21 08:56] LABS: ACT Activated Clotting Time 191 sec (74-137)
--- NOTE | 2018-09-21 09:04 | CL.I_ITS ---
Patient Name: DIONY ROCHA Study Date: 09/21/2018 Performing: Gustavo Cleary MD Ht: 66 inches 168 cm : 1965 Wt: 183.2 lbs 83 kg Age: 53 Gender: female BSA: 1.93 PROCEDURE(S) PERFORMED JJ42-GJV W OR WO PTCA, SINGLE CORONARY ARTERY CLINICAL PROFILE AND CO-MORBIDITIES Patient presents with NSTEMI for urgent cardiac cath Indications: ACS <= 24 hrs, ACS <= 24 hrs Heart Failure: NYHA Class: 1, NYHA Class: 1, Newly Diagnosed: Yes, Heart Failure Type: Systolic Stress/Imaging Stress/Image Study Performed: No Stress/Image Study Performed: No Angina Classification Anginal Classification w/in 2 Weeks: CCS IV CAD Presentations: Unstable angina. Comorbidities/Risk Factors: Current/Recent Smoker (< 1year) Hypertension Dyslipidemia CONCLUSIONS Successful PTCA/DARA mid LAD with a 2.25 x 16 Promus Synergy, postdilated throughout with a 2.5 x 8 NC Balloon; 85%-->0%, no dissection. Successful PTCA/DARA proximal LAD with a 2.5 x 12 Promus Synergy, post dilated with a 2.5 x 8 NC ballo on; 75%-->0%, no dissection.\ RECOMMENDATIONS Highly recommend quitting all tobacco products Follow up with primary foreign language interpreter Risk factor modification ASA Indefinitley Plavix for at least 12 months Routine post interventional care Refer for Outpatient Cardiac Rehab Manual sheath removal per protocol Follow up with Dr. Jean Baptiste Medical management of distal LAD extremely tortuous and small caliber vessel, as well as ostial mid L CX unless pt has recurrent anginal symptoms or lateral ischemia on imaging study. DESCRIPTION OF PROCEDURE The patient arrived to the procedure lab. The risks and benefits of the procedure as well as a full d escription of our services here and current unavailability of surgical backup were fully explained to the patient and/or their significant other prior to the catheterization. The Timeout was completed, verifying the correct patient and procedure. The patient's procedural site was prepped and draped in the usual fashion. Local anesthetic was given subcutaneously to right groin region with Lidocaine 2% Using a modified Seldinger technique,arterial access was obtained via the right femoral artery, a 5Fr sheath was inserted. Left Coronary Artery selective angiography was performed in multiple views usin g a 5 Fr. JL4 catheter. Right Coronary Artery selective angiography was then performed in multiple vi ews using a 5 Fr. 3DRC (Timmy) catheter. Left Ventriculography was performed in SERNA projection usi ng a 5 Fr. Pigtail catheter. LV to AO pullback pressures were then recorded.The images were reviewed and options discussed. A decision was then made to proceed with an Intervention, IVUS o r other adjunct procedure. Arterial sheath was exchanged for a 6 Fr Sheath. EBU 3.5 Guide catheter was inserted and engaged into the LCA. BMw Guide wire was advanced to the LAD. 2.0x 12 Emerge Balloon catheter was inserted. B alloon catheter was advanced across lesion in the LAD, mid. PTCA balloon inflated at 7 atms for 12 se cs. Angiogram performed post balloon dilatation. PTCA balloon inflated at 7 atms for 13 secs. Angiogr am performed post balloon dilatation. 2.25 x 16 Synergy Drug Eluting stent was inserted. Drug Eluting stent was advanced across the lesion in the LAD, mid. Angiogram performed post stent deployment. 2.5 x 8 NC Emerge Balloon catheter was inserted. Balloon catheter was inserted post stent. 2.5 x 12 Syne rgy Drug Eluting stent was inserted. Drug Eluting stent was advanced across the lesion in the LAD, pr oximal. Angiogram performed pre stent deployment. Angiogram performed post stent deployment. 2.5 x 8 NC Emerge Balloon catheter was inserted. Balloon catheter was inserted post stent. Angiogram performed post balloon dilatation. Contrast was injected through the sheath and the Right I liac and Femoral artery were assessed for possible closure device. The arterial sheath was pulled an d a Mynx closure device was deployed for hemostasis INTERVENTION INFORMATION LESION SITE: LAD (Mid) Lesion Complexity: Non-High/Non-C, lesion at bifurcation: No, thrombus present: No, lesion length: 16 mm, culprit lesion: Yes Pre Stenosis: 85 % Pre intervention GAEL flow: 3 PROCEDURE: Drug Eluting Stent with pre and post dilatation Post Stenosis: 0 % Post intervention GAEL flow: 3 Lesion Devices: Medtronic 6 Fr EBU3.5 100cm Guide Catheter Mann .014 [employer] [place] Straight 190cm Contreras Sci EMERGE MR 2.00x12 BALLOON Contreras Sci Synergy MR DARA 2.25x16 Contreras Sci NC EMERGE MR 2.50x08 BALLOON LESION SITE: LAD (Proximal) Lesion Complexity: High/C, lesion at bifurcation: No, thrombus present: No, lesion length: 12 mm, cul prit lesion: No Pre Stenosis: 75 % Pre intervention GAEL flow: 3 PROCEDURE: Drug Eluting Stent with pre and post dilatation Post Stenosis: 0 % Post intervention GAEL flow: 3 Lesion Devices: Medtronic 6 Fr EBU3.5 100cm Guide Catheter Mann .014 [employer] [place] Straight 190cm Contreras Sci EMERGE MR 2.00x12 BALLOON Contreras Sci NC EMERGE MR 2.50x08 BALLOON Contreras Sci Synergy MR DARA 2.50x12 COMPLICATIONS No Complications PROCEDURE MEDICATIONS Versed 1 mg IV Versed 1 mg IV Versed 1 mg IV Versed 1 mg IV Oxygen: 2 L/min via nasal cannula Heparin 6000 unit(s) IV 09/21/2018 08:16:19 Nitro 200 mcg IC 09/21/2018 08:19:16 Nitro 200 mcg IC 09/21/2018 08:19:16 IV Bolus: .9 NaCl 300 ml total 09/21/2018 08:44:07 IV Fluids: .9 NaCl increased to WO ml/hr 09/21/2018 08:17:18 SUMMARY OF HEMODYNAMIC DATA Time AIR REST ECG 07:23:48 AO 137/70 (93) SA 07:48:50 AO 111/70 (88) 07:53:34 LV 111/13, 20 07:59:35 LV 113/12, 18 07:59:41 LV 110/5, 21 08:00:21 LVp 110/4, 21 08:00:24 AOp 104/55 (76) 08:00:29 RM AIR REST 08:58:50 Signed By Gustavo Cleary MD On 09/22/2018 13:53:12 Signed By Gustavo Cleary MD On 09/21/2018 09:03:36 Gustavo Cleary MD
[2018-09-21] MEDS: 0.9% Normal Saline 1,000 ML 150 ML IV (09:15)
--- NOTE | 2018-09-21 09:59 | EKG12_ITS ---
Test Reason : CHEST PAIN Blood Pressure : / mmHG Vent. Rate : 081 BPM Atrial Rate : 081 BPM P-R Int : 162 ms QRS Dur : 086 ms QT Int : 396 ms P-R-T Axes : 027 016 083 degrees QTc Int : 460 ms Normal sinus rhythm Septal infarct , age undetermined Abnormal ECG No previous ECGs available Confirmed by OTTO DELVALLE, DOMINIQUE ([id number]), magazine editor MARLON GALEANA ([id number]) on 09/25/2018 7:57:16 AM Referred By: DILCIA Confirmed By:DOMINIQUE MENJIVAR MD
[2018-09-21 11:10] LABS: Bedside Glucose 220 mg/dL (70-110)
--- NOTE | 2018-09-21 11:38 | PCM.PN.HOSP ---
Patient Problems: Active and Suspected Problems (Last Updated 09/21/18 @ 09:42 by Karin Mcdermott) History of coronary artery stent placement (Acute 09/21/18) PCI-DARA mid LAD with a 2.25 x 16 mm Promus Synergy Stent, DARA proximal LAD with a 2.5 x 12mm Promus Synergy Stent 09/21/18 Atherosclerosis of coronary artery of [place] heart without angina pectoris (Acute) PCI-DARA mid LAD with a 2.25 x 16 mm Promus Synergy Stent, DARA proximal LAD with a 2.5 x 12mm Promus Synergy Stent 09/21/18 NSTEMI (non-ST elevated myocardial infarction) (Acute) Subjective: No further chest pain. No shortness of breath. Feels tired. Vitals/I&O's: Vital Signs Temp Pulse Resp BP Pulse Ox 36.8 C 81 13 135/75 H 100 09/21/18 06:50 09/21/18 11:00 09/21/18 11:00 09/21/18 11:00 09/21/18 11:00 Oxygen Flow Rate (L/min) 2 Oxygen Delivery Method Nasal Cannula Weight: 82.9 kg Body Mass Index (BMI) 29.3 Finger Stick Blood Glucose 227 Intake and Output for Last 24 Hours 09/19/18 09/20/18 09/21/18 23:59 23:59 23:59 Intake Total 1277 / 1277 Output Total 675 / 675 Balance 602 / 602 General: Alert, Cooperative, No apparent distress HEENT: Atraumatic, Normocephalic Oral: Moist Mucosa, No Gingival or Mucosal Lesions/ Ulcerations Neck: No Nodes, Thyroid Normal Size and Texture Lungs: Clear to auscultation, Normal air movement, No rhonchi, No wheeze Cardiovascular: Regular rate, Regular Rhythm, Normal S1, Normal S2, No murmurs Abdomen: Bowel Sounds Present, Soft, Non Tender, Non-Distended, No Hepato-splenomegaly Extremities: No edema, No Calf Tenderness Skin: No rashes, No breakdown Musculoskeletal: No Tenderness to Palpation of Joints or Extremities, No Muscle Wasting Psych/Mental Status: Flat Affect Laboratory Results 09/20/18 21:13: POC Glucose > 500 H* 09/20/18 21:45: WBC 9.2, RBC 4.13 L, Hgb 11.7 L, Hct 35.8 L, MCV 86.7, MCH 28.3, MCHC 32.7, RDW 13.5, RDW Differential 42.3, Plt Count 362, MPV 10.8, Immature Gran % (Auto) 0.000, Neut % (Auto) 65.9, Lymph % (Auto) 24.0, [place] % (Auto) 4.2, Eos % (Auto) 5.2 H, Baso % (Auto) 0.7, Absolute Neuts (auto) 6.1, Absolute Lymphs (auto) 2.21, Total Counted Not Reportable 09/20/18 21:45: Sodium 137, Potassium 3.6, Chloride 101, Carbon Dioxide 24.0, Anion Gap 12, BUN 24 H, Creatinine 1.12 H, Estim Creat Clear Calc 54.38, Est GFR (MDRD) Af Amer 65, Est GFR (MDRD) Non-Af 54 L, BUN/Creatinine Ratio 21.4 H, Glucose 443 H, Calcium 8.8, Phosphorus 3.4, Magnesium 1.9, Total Bilirubin 0.20, Direct Bilirubin 0.06, AST 17, ALT 31, Alkaline Phosphatase 104, Troponin I 0.253 H, Total Protein 7.9, Albumin 3.6, Globulin 4.3 H 09/20/18 22:13: Specimen Type SHAUN, Sample Site L Brachial, VBG pH 7.36, VBG pO2 45 H, VBG O2 Sat (Calc) 79 H, VBG O2 Content 23, VBG Base Excess -4 L, POC Mix VBG pCO2 Pt Tmp 38.3 L, O2 Delivery Device Nasal Can, Liter Flow 2.0, Blood Gas Notified Whom ED , Blood Gas Notified Time 220909/20/18 23:23: POC Glucose 227 H 09/21/18 01:20: Troponin I 3.210 H* 09/21/18 03:48: Troponin I 5.020 H* 09/21/18 03:48: Triglycerides 293 H, Cholesterol 248 H, LDL Cholesterol 146 H, VLDL Cholesterol 59 H, HDL Cholesterol 43 09/21/18 03:48: WBC 9.2, RBC 3.73 L, Hgb 10.8 L, Hct 32.3 L, MCV 86.6, MCH 29.0, MCHC 33.4, RDW 13.1, RDW Differential 39.7, Plt Count 332, MPV 10.9, Immature Gran % (Auto) 0.200, Neut % (Auto) 64.7, Lymph % (Auto) 23.1, [place] % (Auto) 6.8, Eos % (Auto) 4.5, Baso % (Auto) 0.7, Absolute Neuts (auto) 6.0, Absolute Lymphs (auto) 2.13, Total Counted Not Reportable 09/21/18 03:48: PT 14.4, INR 1.1, APTT 39.4 H 09/21/18 03:48: Sodium 141, Potassium 3.8, Chloride 108 H, Carbon Dioxide 23.0, Anion Gap 10, BUN 17, Creatinine 0.70, Estim Creat Clear Calc 87.01, Est GFR (MDRD) Af Amer 112, Est GFR (MDRD) Non-Af 93, BUN/Creatinine Ratio 24.2 H, Glucose 149 H, Calcium 8.5 09/21/18 06:21: POC Glucose 212 H 09/21/18 06:50: Troponin I 7.730 H* 09/21/18 08:44: Activated Clotting Time 191 H 09/21/18 11:02: POC Glucose 220 H Current Medications Acetaminophen (Tylenol) 650 mg PO Q6H PRN PRN PRN Reason: Mild Pain (0-2/10) [facility] ([facility] Aspirin (Ecotrin) 81 mg PO DAILY@0800 [facility] Last Admin: 09/21/18 06:22 Dose: 81 mg Atorvastatin Calcium (Lipitor) 80 mg PO QHS [facility] Last Admin: 09/21/18 03:40 Dose: 80 mg Atropine Sulfate () 0.5 mg IV UD PRN PRN Reason: HR <50 bpm Bisacodyl (Dulcolax) 5 mg PO DAILY PRN PRN PRN Reason: Constipation Clopidogrel Bisulfate (Plavix) 75 mg PO DAILY [facility] Last Admin: 09/21/18 06:22 Dose: 75 mg Dextrose (D50w Syringe) 0 gm IV X1 PRN; Protocol PRN Reason: Hypoglycemia Diazepam (Valium) 5 mg PO Q6H PRN PRN PRN Reason: BACK SPASMS/ANXIETY Gabapentin (Neurontin) 800 mg PO TIDCM [facility] Last Admin: 09/21/18 06:22 Dose: 800 mg Glucagon () 1 mg IM .X1 PRN PRN Reason: Hypoglycemia Heparin Sodium (Beef Lung) (Heparin 500 Unit/5 Ml (100/Ml)) 500 unit IV UD PRN PRN Reason: HEPARIN FLUSH Potassium Chloride/Sodium Chloride () 1,000 mls @ 75 mls/hr IV .[id number] [facility] Stop: 09/21/18 16:31 Last Admin: 09/21/18 03:36 Dose: 75 mls/hr Sodium Chloride () 1,000 mls @ 150 mls/hr IV .Q6H40M [facility] Stop: 09/21/18 16:38 Insulin Human Lispro (Humalog Kwikpen (Bkc)) 0 unit SQ Q4 [facility]; Protocol Last Admin: 09/21/18 06:39 Dose: Not Given Labetalol HCl (Trandate) 5 mg IV X1 PRN PRN Reason: SBP > 160 when pulling sheath Lisinopril (Zestril) 5 mg PO DAILY [facility] Last Admin: 09/21/18 07:05 Dose: 5 mg Magnesium Hydroxide (Milk Of Magnesia) 30 ml PO DAILY PRN PRN Reason: Constipation Metoclopramide HCl (Reglan) 5 mg IV Q6H PRN PRN Reason: NAUSEA/VOMITING Metoprolol Tartrate (Lopressor (Beta Tin)) 12.5 mg PO BID [facility] Last Admin: 09/21/18 06:22 Dose: 12.5 mg Morphine Sulfate () 1 - 2 mg IV Q4H PRN PRN PRN Reason: PAIN Nitroglycerin (Nitrostat) 0.4 mg SUBLINGUAL Q5M PRN PRN Reason: CHEST PAIN Ondansetron HCl (Zofran) 4 mg IV Q8H PRN PRN PRN Reason: NAUSEA Oxycodone HCl (Oxyir) 5 mg PO Q8H PRN PRN PRN Reason: PAIN Pramipexole Dihydrochloride (Mirapex) 1.5 mg PO BID [facility] Last Admin: 09/21/18 06:23 Dose: 1.5 mg Promethazine HCl (Phenergan) 12.5 mg IV Q6H PRN PRN PRN Reason: NAUSEA/VOMITING Sodium Chloride () 5 - 15 ml IV UD PRN PRN Reason: SALINE FLUSH Sodium Chloride () 500 ml IV BOLUS PRN PRN Reason: VASO-VAGAL PROTOCOL Medical Necessity - Tobacco Use Smoking Status: Never smoker Assessment/Plan All Active Problems (Last Updated 09/21/18 @ 09:42 by Karin Mcdermott) History of coronary artery stent placement (Acute 09/21/18) Atherosclerosis of coronary artery of [place] heart without angina pectoris (Acute) NSTEMI (non-ST elevated myocardial infarction) (Acute) Hepatitis B (Resolved) 1. Non-STEMI Status post PCI to the LAD Continue aspirin, Plavix and high intensity statin 2. Diabetes mellitus type 2 Uncontrolled Resume her on Lantus and scheduled NovoLog 3. DVT prophylaxis with SCDs Code Visit Inpatient E&M: 02490 Subs Hosp L2
--- NOTE | 2018-09-21 11:41 | PN_ITS ---
Patient Problems: Active and Suspected Problems (Last Updated 09/21/18 @ 09:42 by Karin Mcdermott) History of coronary artery stent placement (Acute 09/21/18) PCI-DARA mid LAD with a 2.25 x 16 mm Promus Synergy Stent, DARA proximal LAD with a 2.5 x 12mm Promus Synergy Stent 09/21/18 Atherosclerosis of coronary artery of [place] heart without angina pectoris (Acute) PCI-DARA mid LAD with a 2.25 x 16 mm Promus Synergy Stent, DARA proximal LAD with a 2.5 x 12mm Promus Synergy Stent 09/21/18 NSTEMI (non-ST elevated myocardial infarction) (Acute) Subjective: No further chest pain. No shortness of breath. Feels tired. Vitals/I&O's: Vital Signs Temp Pulse Resp BP Pulse Ox 36.8 C 81 13 135/75 H 100 09/21/18 06:50 09/21/18 11:00 09/21/18 11:00 09/21/18 11:00 09/21/18 11:00 Oxygen Flow Rate (L/min) 2 Oxygen Delivery Method Nasal Cannula Weight: 82.9 kg Body Mass Index (BMI) 29.3 Finger Stick Blood Glucose 227 Intake and Output for Last 24 Hours 09/19/18 09/20/18 09/21/18 23:59 23:59 23:59 Intake Total 1277 / 1277 Output Total 675 / 675 Balance 602 / 602 General: Alert, Cooperative, No apparent distress HEENT: Atraumatic, Normocephalic Oral: Moist Mucosa, No Gingival or Mucosal Lesions/ Ulcerations Neck: No Nodes, Thyroid Normal Size and Texture Lungs: Clear to auscultation, Normal air movement, No rhonchi, No wheeze Cardiovascular: Regular rate, Regular Rhythm, Normal S1, Normal S2, No murmurs Abdomen: Bowel Sounds Present, Soft, Non Tender, Non-Distended, No Hepato- splenomegaly Extremities: No edema, No Calf Tenderness Skin: No rashes, No breakdown Musculoskeletal: No Tenderness to Palpation of Joints or Extremities, No Muscle Wasting Psych/Mental Status: Flat Affect Laboratory Results 09/20/18 21:13: POC Glucose > 500 H* 09/20/18 21:45: WBC 9.2, RBC 4.13 L, Hgb 11.7 L, Hct 35.8 L, MCV 86.7, MCH 28.3, MCHC 32.7, RDW 13.5, RDW Differential 42.3, Plt Count 362, MPV 10.8, Immature Gran % (Auto) 0.000, Neut % (Auto) 65.9, Lymph % (Auto) 24.0, [place] % (Auto) 4.2, Eos % (Auto) 5.2 H, Baso % (Auto) 0.7, Absolute Neuts (auto) 6.1, Absolute Lymphs (auto) 2.21, Total Counted Not Reportable 09/20/18 21:45: Sodium 137, Potassium 3.6, Chloride 101, Carbon Dioxide 24.0, Anion Gap 12, BUN 24 H, Creatinine 1.12 H, Estim Creat Clear Calc 54.38, Est GFR (MDRD) Af Amer 65, Est GFR (MDRD) Non-Af 54 L, BUN/Creatinine Ratio 21.4 H, Glucose 443 H, Calcium 8.8, Phosphorus 3.4, Magnesium 1.9, Total Bilirubin 0.20, Direct Bilirubin 0.06, AST 17, ALT 31, Alkaline Phosphatase 104, Troponin I 0.253 H, Total Protein 7.9, Albumin 3.6, Globulin 4.3 H 09/20/18 22:13: Specimen Type SHAUN, Sample Site L Brachial, VBG pH 7.36, VBG pO2 45 H, VBG O2 Sat (Calc) 79 H, VBG O2 Content 23, VBG Base Excess -4 L, POC Mix VBG pCO2 Pt Tmp 38.3 L, O2 Delivery Device Nasal Can, Liter Flow 2.0, Blood Gas Notified Whom ED , Blood Gas Notified Time 220909/20/18 23:23: POC Glucose 227 H 09/21/18 01:20: Troponin I 3.210 H* 09/21/18 03:48: Troponin I 5.020 H* 09/21/18 03:48: Triglycerides 293 H, Cholesterol 248 H, LDL Cholesterol 146 H, VLDL Cholesterol 59 H, HDL Cholesterol 43 09/21/18 03:48: WBC 9.2, RBC 3.73 L, Hgb 10.8 L, Hct 32.3 L, MCV 86.6, MCH 29.0, MCHC 33.4, RDW 13.1, RDW Differential 39.7, Plt Count 332, MPV 10.9, Immature Gran % (Auto) 0.200, Neut % (Auto) 64.7, Lymph % (Auto) 23.1, [place] % (Auto) 6.8, Eos % (Auto) 4.5, Baso % (Auto) 0.7, Absolute Neuts (auto) 6.0, Absolute Lymphs (auto) 2.13, Total Counted Not Reportable 09/21/18 03:48: PT 14.4, INR 1.1, APTT 39.4 H 09/21/18 03:48: Sodium 141, Potassium 3.8, Chloride 108 H, Carbon Dioxide 23.0, Anion Gap 10, BUN 17, Creatinine 0.70, Estim Creat Clear Calc 87.01, Est GFR (MDRD) Af Amer 112, Est GFR (MDRD) Non-Af 93, BUN/Creatinine Ratio 24.2 H, Glucose 149 H, Calcium 8.5 09/21/18 06:21: POC Glucose 212 H 09/21/18 06:50: Troponin I 7.730 H* 09/21/18 08:44: Activated Clotting Time 191 H 09/21/18 11:02: POC Glucose 220 H Current Medications Acetaminophen (Tylenol) 650 mg PO Q6H PRN PRN PRN Reason: Mild Pain (0-2/10) Ascorbic [facility] (Vitamin C) [facility] Aspirin (Ecotrin) 81 mg PO DAILY@0800 [facility] Last Admin: 09/21/18 06:22 Dose: 81 mg Atorvastatin Calcium (Lipitor) 80 mg PO QHS [facility] Last Admin: 09/21/18 03:40 Dose: 80 mg Atropine Sulfate () 0.5 mg IV UD PRN PRN Reason: HR <50 bpm Bisacodyl (Dulcolax) 5 mg PO DAILY PRN PRN PRN Reason: Constipation Clopidogrel Bisulfate (Plavix) 75 mg PO DAILY [facility] Last Admin: 09/21/18 06:22 Dose: 75 mg Dextrose (D50w Syringe) 0 gm IV X1 PRN; Protocol PRN Reason: Hypoglycemia Diazepam (Valium) 5 mg PO Q6H PRN PRN PRN Reason: BACK SPASMS/ANXIETY Gabapentin (Neurontin) 800 mg PO TIDCM [facility] Last Admin: 09/21/18 06:22 Dose: 800 mg Glucagon () 1 mg IM .X1 PRN PRN Reason: Hypoglycemia Heparin Sodium (Beef Lung) (Heparin 500 Unit/5 Ml (100/Ml)) 500 unit IV UD PRN PRN Reason: HEPARIN FLUSH Potassium Chloride/Sodium Chloride () 1,000 mls @ 75 mls/hr IV .[id number] [facility] Stop: 09/21/18 16:31 Last Admin: 09/21/18 03:36 Dose: 75 mls/hr Sodium Chloride () 1,000 mls @ 150 mls/hr IV .Q6H40M [facility] Stop: 09/21/18 16:38 Insulin Human Lispro (Humalog Kwikpen (Bkc)) 0 unit SQ Q4 [facility]; Protocol Last Admin: 09/21/18 06:39 Dose: Not Given Labetalol HCl (Trandate) 5 mg IV X1 PRN PRN Reason: SBP > 160 when pulling sheath Lisinopril (Zestril) 5 mg PO DAILY [facility] Last Admin: 09/21/18 07:05 Dose: 5 mg Magnesium Hydroxide (Milk Of Magnesia) 30 ml PO DAILY PRN PRN Reason: Constipation Metoclopramide HCl (Reglan) 5 mg IV Q6H PRN PRN Reason: NAUSEA/VOMITING Metoprolol Tartrate (Lopressor (Beta Tin)) 12.5 mg PO BID [facility] Last Admin: 09/21/18 06:22 Dose: 12.5 mg Morphine Sulfate () 1 - 2 mg IV Q4H PRN PRN PRN Reason: PAIN Nitroglycerin (Nitrostat) 0.4 mg SUBLINGUAL Q5M PRN PRN Reason: CHEST PAIN Ondansetron HCl (Zofran) 4 mg IV Q8H PRN PRN PRN Reason: NAUSEA Oxycodone HCl (Oxyir) 5 mg PO Q8H PRN PRN PRN Reason: PAIN Pramipexole Dihydrochloride (Mirapex) 1.5 mg PO BID [facility] Last Admin: 09/21/18 06:23 Dose: 1.5 mg Promethazine HCl (Phenergan) 12.5 mg IV Q6H PRN PRN PRN Reason: NAUSEA/VOMITING Sodium Chloride () 5 - 15 ml IV UD PRN PRN Reason: SALINE FLUSH Sodium Chloride () 500 ml IV BOLUS PRN PRN Reason: VASO-VAGAL PROTOCOL Medical Necessity - Tobacco Use Smoking Status: Never smoker Assessment/Plan All Active Problems (Last Updated 09/21/18 @ 09:42 by Karin Mcdermott) History of coronary artery stent placement (Acute 09/21/18) Atherosclerosis of coronary artery of [place] heart without angina pectoris (Acute) NSTEMI (non-ST elevated myocardial infarction) (Acute) Hepatitis B (Resolved) 1. Non-STEMI * Status post PCI to the LAD * Continue aspirin, Plavix and high intensity statin 2. Diabetes mellitus type 2 * Uncontrolled * Resume her on Lantus and scheduled NovoLog 3. DVT prophylaxis with SCDs Code Visit Inpatient E&M: 60508 Subs Hosp L2
[2018-09-21] MEDS: oxyCODONE 5 MG Tablet PO (11:50)
[2018-09-21] MEDS: Morphine 2 MG/ML Syringe IV (12:12)
[2018-09-21] MEDS: Insulin Lispro 100 UNIT/ML INSULN.PEN SQ ×3 (12:17→22:26)
[2018-09-21] MEDS: Insulin Lispro 100 UNIT/ML INSULN.PEN 20 UNIT SC ×2 (12:19→19:29)
--- NOTE | 2018-09-21 13:21 | CRPHASE1_ITS ---
Patient Data/Charges [employer]:: Gustavo Cleary PCP:: Raúl Eric Date/Diagnosis #1:: 09/20/2018 PCI Risk Factors/Lifestyle Smoking Status: Never smoker Hx Hypertension: No Hx Diabetes Mellitus Type 2: Yes Hx Metabolic Disorders: Yes Hx Dyslipidemia: Yes Hx Obesity: Yes Height: 5 ft 6 in Weight:: 182 lb BMI: 29.3 Stress: Recent, Long-standing Family History: Cancer, Diabetes, Heart Disease, Hypertension Laboratory Values: Cardiac Rehab Phase I Labs Triglycerides 293 mg/dL (-199) H 09/21/18 03:48 Cholesterol 248 mg/dL (200) H 09/21/18 03:48 LDL Cholesterol 146 mg/dL (0-130) H 09/21/18 03:48 HDL Cholesterol 43 mg/dL (40-) 09/21/18 03:48 Phase I Education Given On:: [place], Nutrition, Antiplatelet medication, CHF, Smoking cessation, Diabetes - Type I, Diabetes - Type II Issues Affecting Care:: None Medical/Surgical History Angina:: Yes Cardiomyopathy:: No Valve Disease/Replacement:: No Pulmonary:: No COPD:: No Asthma:: No Diabetes Type II:: Yes Hypertension:: No Dyslipidemia:: Yes Arrhythmias:: No Arthritis:: Yes GERD:: Yes Cancer:: No Renal:: No Depression:: Yes Anxiety:: Yes CABG: No PTCA:: Yes ICD:: No Pacemaker:: No Discharge/Home/Social Eval Discharge Disposition: Home
--- NOTE | 2018-09-21 13:23 | CRPH1.INSTRU ---
General Education CAD and cardiac anatomy and function:: Not instructed Explanation of diagnoses and procedures:: Needs reinforcement Sign/Symptoms of HI:: Needs reinforcement Antiplatelet therapy: Needs reinforcement Proper use of NTG-SL: Not instructed Emergency procedures and activation of EMS: Needs reinforcement Compliance of all prescribed medications: Needs reinforcement Smoking Patient Nicotine/Smoking Risk Factors Are:: Never smoked Dyslipidemia Recommendations Include:: Lipid profile not available Dyslipidemia Response Code:: Not instructed Overweight/Obesity Patient Overweight/Obesity Risk Factors Are:: Overweight = 26-29 Overweight/Obesity:: Needs reinforcement Hypertension Hypertension:: Needs reinforcement, Not instructed Heart Disease Patient Heart Disease Risk Factors Are:: Family history of heart disease < 65 years old Heart Disease Response Code:: Needs reinforcement Diabetes Patient Diabetes Risk Factors Are:: Elevated blood sugars Diabetes:: Needs reinforcement Metabolic Syndrome Patient Metabolic Syndrome Risk Factors Are [3 of 5]:: Fasting blood sugar > 100 mg/dL, Waist circumference > 35 [female] or 40 [male], Hypertension Recommendations Include:: Reinforce compliance to risk factor modifications, Patient is diabetic Metabolic Syndrome Response Code:: Needs reinforcement Sedentary Sedentary Response Code:: Not instructed Stress Recommendations Include:: Identification of stressors, and assessment of coping skills Stress Response Code:: Needs reinforcement
--- NOTE | 2018-09-21 13:26 | CRPH1.INST_ITS ---
General Education CAD and cardiac anatomy and function:: Not instructed Explanation of diagnoses and procedures:: Needs reinforcement Sign/Symptoms of DC:: Needs reinforcement Antiplatelet therapy: Needs reinforcement Proper use of NTG-SL: Not instructed Emergency procedures and activation of EMS: Needs reinforcement Compliance of all prescribed medications: Needs reinforcement Smoking Patient Nicotine/Smoking Risk Factors Are:: Never smoked Dyslipidemia Recommendations Include:: Lipid profile not available Dyslipidemia Response Code:: Not instructed Overweight/Obesity Patient Overweight/Obesity Risk Factors Are:: Overweight = 26-29 Overweight/Obesity:: Needs reinforcement Hypertension Hypertension:: Needs reinforcement, Not instructed Heart Disease Patient Heart Disease Risk Factors Are:: Family history of heart disease < 65 years old Heart Disease Response Code:: Needs reinforcement Diabetes Patient Diabetes Risk Factors Are:: Elevated blood sugars Diabetes:: Needs reinforcement Metabolic Syndrome Patient Metabolic Syndrome Risk Factors Are [3 of 5]:: Fasting blood sugar > 100 mg/dL, Waist circumference > 35 [female] or 40 [male], Hypertension Recommendations Include:: Reinforce compliance to risk factor modifications, Patient is diabetic Metabolic Syndrome Response Code:: Needs reinforcement Sedentary Sedentary Response Code:: Not instructed Stress Recommendations Include:: Identification of stressors, and assessment of coping skills Stress Response Code:: Needs reinforcement
[2018-09-21] MEDS: Atropine Sulfate 1 MG/10 ML Syringe 0.5 MG IV (14:19)
[2018-09-21 14:20] LABS: Bedside Glucose 157 mg/dL (70-110)
[2018-09-21 14:38] LABS: Absolute Lymphocyte Count 2.12 X10^3/ul (0.83-4.51); Absolute Neutrophil Count 5.6 X10^3/uL (2.0-7.7); Basophil# 0.05 X10^3/uL; Basophil% 0.6 % (0-1); Eosinophil# 0.42 X10^3/uL; Eosinophils% 4.8 % (0-5); Hematocrit 29.2 % (37-47); Hemoglobin 9.4 g/dl (12.0-15.0); Lymphocyte # 2.12 X10^3/ul (4.0); Lymphocyte % 24.1 % (19-41); Mean Corp Hgb Conc 32.2 g/gl (32-36); Mean Corpuscular Hgb 28.3 pg (27.0-32.0); Mean Platelet Vol. 10.7 fl (6.2-12.0); Monocyte# 0.58 X10^3/uL; Monocyte% 6.6 % (0-10); Neutrophil # 5.63 X10^3/uL (2.7-7.7); Neutrophil % 63.8 % (47-70); POSITIVE COUNT NO; POSITIVE DIFFERENTIAL NO; POSITIVE MORPHOLOGY NO; Platelet Count 272 K/mm3 (150-450); RBC Distribution Width CV 13.3 % (11.6-14.6); RBC Distribution Width SD 40.7 fl (35.1-43.9); Red Blood Count 3.32 M/mm3 (4.2-5.4); White Blood Count 8.8 K/mm3 (4.4-11.0)
--- NOTE | 2018-09-21 15:16 | NURSING ---
wound photo: left foot
--- NOTE | 2018-09-21 16:22 | CT_ITS ---
STUDY: CT ABDOMEN AND PELVIS WITHOUT CONTRAST REASON FOR EXAM: Female, 53 years old. Decreased hemoglobin status post catheterization RADIATION DOSAGE (If Supplied By Facility): CTDIvol = ( 12.46 ) mGy, DLP = ( 659.94 ) mGycm TECHNIQUE: Transaxial images were obtained from the dome of the diaphragm to the symphysis pubis without oral contrast, and without intravenous contrast. Sagittal and coronal images were reconstructed. Individualized dose optimization techniques were used for this CT. COMPARISON: None. FINDINGS: There is minor atelectasis within the dependent portion of the lungs bilaterally. The visualized portions of the heart are within normal limits. Normal liver. There is increased attenuation within the gallbladder possibly due to tiny calcified gallstones or vicarious excretion of contrast from prior contrast studies. Normal spleen. Normal pancreas. Normal bilateral adrenal glands. Normal right kidney. Normal left kidney. Normal visualized stomach. Normal small intestine. Normal colon. The appendix is visualized and appears normal. Minor atherosclerotic changes of the aorta without evidence for aneurysm.. Normal inferior vena cava. Normal retroperitoneum. There is mild prominence of the uterus which is deviated towards the left depressing the dome of the bladder. Small fat-containing umbilical hernia. Lumbar spine demonstrates mild spondylosis. There is mild stranding in the fat of the right groin consistent with recent catheterization however there is no appreciable hematoma. CT/Abdomen/Pelvis without Cont IMPRESSION: Post catheterization stranding in the right inguinal fat but no evidence for hematoma in the groin or retroperitoneal bleed. Possible tiny calcified stones in the gallbladder versus vicarious excretion of contrast. This may be differentiated with gallbladder sonogram if clinically warranted Electronically Signed: Jefe Cesar MD at 16:57 EST , Service support ,
[2018-09-21 16:36] LABS: Absolute Lymphocyte Count 1.49 X10^3/ul (0.83-4.51); Absolute Neutrophil Count 6.2 X10^3/uL (2.0-7.7); Basophil# 0.06 X10^3/uL; Basophil% 0.7 % (0-1); Eosinophil# 0.39 X10^3/uL; Eosinophils% 4.4 % (0-5); Hematocrit 30.9 % (37-47); Lymphocyte # 1.49 X10^3/ul (4.0); Lymphocyte % 16.7 % (19-41); Mean Corp Hgb Conc 32.4 g/gl (32-36); Mean Corpuscular Hgb 28.3 pg (27.0-32.0); Mean Corpuscular Volume 87.5 fL (81-99); Mean Platelet Vol. 10.7 fl (6.2-12.0); Monocyte# 0.73 X10^3/uL; Monocyte% 8.2 % (0-10); Neutrophil # 6.23 X10^3/uL (2.7-7.7); Neutrophil % 69.9 % (47-70); Platelet Count 245 K/mm3 (150-450); RBC Distribution Width CV 13.7 % (11.6-14.6); RBC Distribution Width SD 43.7 fl (35.1-43.9); Red Blood Count 3.53 M/mm3 (4.2-5.4); White Blood Count 8.9 K/mm3 (4.4-11.0)
[2018-09-21 16:41] LABS: POSITIVE COUNT NO; POSITIVE DIFFERENTIAL NO; POSITIVE MORPHOLOGY NO
[2018-09-21 17:05] LABS: Bedside Glucose 101 mg/dL (70-110)
[2018-09-21] MEDS: Ascorbic Acid 500 MG Tablet PO (19:31)
[2018-09-21 19:36] LABS: Bedside Glucose 237 mg/dL (70-110)
[2018-09-21 22:35] LABS: Bedside Glucose 189 mg/dL (70-110)
[2018-09-22] VITALS (11 sets, daily range): BP systolic 92–129; BP diastolic 39–64; PULSE 75–91; RESP 19–27; TEMP 36.6–36.9; O2SAT 94–98
[2018-09-22] MEDS: Insulin Lispro 100 UNIT/ML INSULN.PEN SQ ×3 (02:08→08:55)
[2018-09-22 02:16] LABS: Bedside Glucose 195 mg/dL (70-110)
[2018-09-22 04:48] LABS: Hematocrit 29.9 % (37-47); Hemoglobin 9.6 g/dl (12.0-15.0); Mean Corp Hgb Conc 32.1 g/gl (32-36); Mean Corpuscular Hgb 28.3 pg (27.0-32.0); Mean Corpuscular Volume 88.2 fL (81-99); Mean Platelet Vol. 11.1 fl (6.2-12.0); Platelet Count 264 K/mm3 (150-450); RBC Distribution Width CV 13.4 % (11.6-14.6); Red Blood Count 3.39 M/mm3 (4.2-5.4); White Blood Count 6.9 K/mm3 (4.4-11.0)
[2018-09-22 04:53] LABS: Scan Indicated on CBC? Y/N NO
[2018-09-22 05:01] LABS: Anion Gap 8 (5-15); BUN 10 mg/dL (7-18); BUN/Creat Ratio 12.9 RATIO (10-20); Chloride 112 mmol/L (98-107); Cholesterol 193 mg/dL (200); Creatinine, Serum 0.78 mg/dL (0.55-1.02); EST Glomerular Filtration Rate 83 mL/min (>60); Est Glom Filt Rate - Afr Amer 100 mL/min (>60); Estimated Creatinine Clearance 78.08 ml/min; Glucose 191 mg/dL (74-106); High Density Lipoprotein 36 mg/dL; Sodium Level 142 mmol/L (136-145); Triglycerides 219 mg/dL; Very Low Density Lipoprotein 44 mg/dL (5-40)
[2018-09-22 05:36] LABS: Bedside Glucose 189 mg/dL (70-110)
--- NOTE | 2018-09-22 06:38 | PN.CARD_ITS ---
Subjectve: Patient seen and evaluated. Appears to be doing well. No cardiac complaints overnight. Objective: Vital Signs Temp Pulse Resp BP Pulse Ox 97.9 F 79 19 H 112/57 L 96 09/22/18 00:00 09/22/18 06:00 09/22/18 06:00 09/22/18 06:00 09/22/18 06:00 Oxygen Flow Rate (L/min) 2 Oxygen Delivery Method Room Air Weight: 182 lb Body Mass Index (BMI) 29.3 Finger Stick Blood Glucose 227 Intake and Output for Last 24 Hours 09/20/18 09/21/18 09/22/18 23:59 23:59 23:59 Intake Total 5560 / 5560 120 / 120 Output Total 2500 / 2500 325 / 325 Balance 3060 / 3060 -205 / -205 General: Awake, Alert, Oriented x 3 HEENT: PERRL, EOMI, Sclera Non Icteric Neck: Supple, Good ROM, No Lymph Node Enlargement Lungs: Clear to auscultation Cardiovascular: Regular Rhythm, Normal S1, Normal S2, No Murmurs, No Rubs, No Gallops Vascular: No Carotid Bruits, Normal Femoral Pulses, Normal Radial Pulses, Normal Dorsalis Pedal Pulse, Normal Posterior Tibial Pulses Abdomen: Bowel Sounds Present, Soft, Non Tender, No HSM, No Organomegaly Extremities: No Cyanosis, No Clubbing, No edema Neurological: No Focal Motor or Sensory Deficit 09/21/18 06:50: Troponin I 7.730 H* 09/21/18 14:30: WBC 8.8, RBC 3.32 L, Hgb 9.4 L, Hct 29.2 L, MCV 88.0, MCH 28.3, MCHC 32.2, RDW 13.3, RDW Differential 40.7, Plt Count 272, MPV 10.7, Immature Gran % (Auto) 0.100, Neut % (Auto) 63.8, Lymph % (Auto) 24.1, [place] % (Auto) 6.6, Eos % (Auto) 4.8, Baso % (Auto) 0.6, Absolute Neuts (auto) 5.6, Total Counted Not Reportable 09/21/18 16:30: WBC 8.9, RBC 3.53 L, Hgb 10.0 L, Hct 30.9 L, MCV 87.5, MCH 28.3, MCHC 32.4, RDW 13.7, RDW Differential 43.7, Plt Count 245, MPV 10.7, Immature Gran % (Auto) 0.100, Neut % (Auto) 69.9, Lymph % (Auto) 16.7 L, [place] % (Auto) 8.2, Eos % (Auto) 4.4, Baso % (Auto) 0.7, Absolute Neuts (auto) 6.2, Total Counted Not Reportable 09/22/18 04:30: Sodium 142, Potassium 4.0, Chloride 112 H, Carbon Dioxide 22.0, Anion Gap 8, BUN 10, Creatinine 0.78, Est GFR (MDRD) Af Amer 100, Est GFR (MDRD) Non-Af 83, BUN/Creatinine Ratio 12.9, Glucose 191 H, Calcium 8.0 L, Triglycerides 219 H, Cholesterol 193, LDL Cholesterol 113, VLDL Cholesterol 44 H , HDL Cholesterol 36 L 09/22/18 04:30: WBC 6.9, RBC 3.39 L, Hgb 9.6 L, Hct 29.9 L, MCV 88.2, MCH 28.3, MCHC 32.1, RDW 13.4, RDW Differential 41.0, Plt Count 264, MPV 11.1 Rhythm: EKG: ECHO: Stress Test: Cardiac Cath: PCI: CT Surgery: Holter monitor: EPS: PPM: CXR: Chest CT Scan: Medical Necessity - Tobacco Use Smoking Status: Never smoker Assessment/Plan 1. Chest pain-NSTEMI * Patient presents with chest discomfort and is noted to have a non-ST elevation myocardial infarction. * Agree with the plan as instituted * Continue aspirin * Continue beta-kunal * Patient loaded with clopidogrel * High intensity statin * Cardiac catheterization demonstrated normal left main coronary artery * Left anterior descending artery with high-grade mid segment stenosis and moderate distal stenosis * Left circumflex artery with mid to distal moderate stenosis * Right coronary artery with no high-grade stenosis * Patient underwent angioplasty and stenting with a drug-eluting stent to the mid left anterior descending artery successfully. The hemoglobin has remained stable overnight and the creatinine has also remained stable. * Patient can be discharged on the current medical therapy for outpatient follow-up and cardiac rehabilitation. 2. Hyperlipidemia * The patient has markedly elevated lipid profile * High intensity statins have been recommended * 3. Hypertension * Patient noted to be hypertensive on presentation and will recommend starting an MYLA inhibitor in addition to the beta-kunal * Thank you for allowing me to participate in the care of your patient. Please don't hesitate to call if any issues arise
--- NOTE | 2018-09-22 07:50 | PCM.DC ---
- Discharge Diagnoses Current Active Problems: Current Active and Chronic Problems (Last Updated 09/21/18 @ 09:42 by Karin Mcdermott) History of coronary artery stent placement (Acute 09/21/18) PCI-DARA mid LAD with a 2.25 x 16 mm Promus Synergy Stent, DARA proximal LAD with a 2.5 x 12mm Promus Synergy Stent 09/21/18 Atherosclerosis of coronary artery of [place] heart without angina pectoris (Acute) PCI-DARA mid LAD with a 2.25 x 16 mm Promus Synergy Stent, DARA proximal LAD with a 2.5 x 12mm Promus Synergy Stent 09/21/18 NSTEMI (non-ST elevated myocardial infarction) (Acute) You will use the following diet at home:: Calorie/Carbohydrate Controlled (specify 1200, 1400, etc) - 1800 calories/day, Cardiac Your food should be the consistency of: Regular Your liquids should be the consistency of: Regular/Thin Discharge Activity: Return to Normal Activity Call your doctor if you observe: Shortness of breath, Chest pain Allergies/Adverse Reactions: Allergies oxycodone HCl [From OxyContin] Allergy (Verified 09/20/18 20:55) Rash Penicillins Allergy (Verified 09/20/18 20:55) Shortness of breath Medications to take at Discharge Acetaminophen [Tylenol Tablet] 650 mg PO Q6H PRN PRN 09/20/18 Ascorbic Acid [Vitamin C] 500 mg PO BIDCM 09/20/18 Celluvisc 1 drop OP 4X/DAY 09/20/18 Gabapentin [Neurontin] 800 mg PO TIDCM 09/20/18 Insulin Aspart [Novolog Flexpen] 20 units SC TIDCM 09/20/18 Insulin Glargine [Lantus SoloStar Pen] 30 units SC 0800 09/20/18 Omeprazole [Prilosec] 20 mg PO DAILY 09/20/18 Oxycodone [Oxyir] 5 mg PO Q8H PRN PRN 09/20/18 Ropinirole HCl [Requip] 3 mg PO BID 09/20/18 Rosuvastatin Calcium [Crestor] 40 mg PO DAILY 09/20/18 proMETHazine tablet [Phenergan tablet] 25 mg PO Q6H PRN 09/20/18 Aspirin E.C. [Ecotrin] 81 mg PO DAILY@0800 tablet 09/22/18 Atorvastatin Calcium [Lipitor] 80 mg PO QHS #30 tablet 09/22/18 Clopidogrel Bisulfate [Plavix] 75 mg PO DAILY #30 tablet 09/22/18 Lisinopril [Zestril] 5 mg PO DAILY #30 tablet 09/22/18 Metoprolol Tartrate [Lopressor (beta kunal)] 12.5 mg PO BID #60 tablet 09/22/18 The following prescriptions were given: Atorvastatin Calcium [Lipitor] 80 mg PO QHS #30 tablet Clopidogrel Bisulfate [Plavix] 75 mg PO DAILY #30 tablet Lisinopril [Zestril] 5 mg PO DAILY #30 tablet Metoprolol Tartrate [Lopressor (beta kunal)] 12.5 mg PO BID #60 tablet Orders to be completed after discharge: Phase II, Outpatient Cardiac Rehab Location: None Selected Primary Care Physician: Raúl Eric MD [Primary Care Provider] - Within 2 Weeks Test Results: Test results from this visit will be discussed in further detail at your follow-up appointment, if applicable. Please Follow Up With: Saravanan Jean Baptiste MD When: 2-4 weeks Proposed Discharge Date: 09/22/18 Cardiac Rehab Referral Please Follow Up with Cardiac Rehabilitation:: 2 Weeks Cardiac Rehabilitation was informed of this Referral:: No
--- NOTE | 2018-09-22 07:51 | PCM.DC.SUM ---
Discharge Date and Diagnosis - Problem List Patient Problems: Active and Suspected Problems (Last Updated 09/21/18 @ 09:42 by Karin Mcdermott) NSTEMI (non-ST elevated myocardial infarction) (Acute) History of coronary artery stent placement (Acute 09/21/18) PCI-DARA mid LAD with a 2.25 x 16 mm Promus Synergy Stent, DARA proximal LAD with a 2.5 x 12mm Promus Synergy Stent 09/21/18 Atherosclerosis of coronary artery of [place] heart without angina pectoris (Acute) PCI-DARA mid LAD with a 2.25 x 16 mm Promus Synergy Stent, DARA proximal LAD with a 2.5 x 12mm Promus Synergy Stent 09/21/18 NSTEMI (non-ST elevated myocardial infarction) (Acute) Date of Admission: 09/20/18 Date of Discharge: 09/22/18 - Primary Discharge Diagnosis Active and Suspected Problems (Last Updated 09/21/18 @ 09:42 by Karin Mcdermott) NSTEMI (non-ST elevated myocardial infarction) (Acute) History of coronary artery stent placement (Acute 09/21/18) PCI-DARA mid LAD with a 2.25 x 16 mm Promus Synergy Stent, DARA proximal LAD with a 2.5 x 12mm Promus Synergy Stent 09/21/18 Atherosclerosis of coronary artery of [place] heart without angina pectoris (Acute) PCI-DARA mid LAD with a 2.25 x 16 mm Promus Synergy Stent, DARA proximal LAD with a 2.5 x 12mm Promus Synergy Stent 09/21/18 NSTEMI (non-ST elevated myocardial infarction) (Acute) - Secondary Discharge Diagnosis Chronic Problems (Last Updated 09/21/18 @ 09:42 by Karin Mcdermott) HLD (hyperlipidemia) (Chronic) Cellulitis (Chronic) Neuropathic pain (Chronic) GERD (gastroesophageal reflux disease) (Chronic) Hypomagnesemia (Chronic) Back pain, chronic (Chronic) Hyponatremia (Chronic) Depression (Chronic) Diabetic foot ulcer associated with type 2 diabetes mellitus (Chronic) RLS (restless legs syndrome) (Chronic) Type II diabetes mellitus, uncontrolled (Chronic) Anxiety state (Chronic) Hospital Course and Treatment Consultations 09/21/18 01:35 Consult: Onc/Wound/fleet operations manager Routine Comment: Reason for Consult:: wound to outer left foot Operations: None, - Procedures: Cardiac catheterization Summary of Care Provided: The patient is a 53 year old F with chest pain. Initial troponins were 0.253 and then peaked as high as 7.73. Patient underwent a left heart catheterization and received a drug-eluting stent to the left anterior descending artery. Patient will continue with aspirin, Plavix and high intensity statin. Patient will follow up with cardiology as well as cardiac rehab. Patient was also noted to have severe hypoglycemia with blood sugars over 500. Patient was resumed back on her home dose of insulin and her blood sugars have improved. Patient has been instructed to for compliance of her medications. Patient Problems: Active and Suspected Problems (Last Updated 09/21/18 @ 09:42 by Karin Mcedrmott) NSTEMI (non-ST elevated myocardial infarction) (Acute) History of coronary artery stent placement (Acute 09/21/18) PCI-DARA mid LAD with a 2.25 x 16 mm Promus Synergy Stent, DARA proximal LAD with a 2.5 x 12mm Promus Synergy Stent 09/21/18 Atherosclerosis of coronary artery of [place] heart without angina pectoris (Acute) PCI-DARA mid LAD with a 2.25 x 16 mm Promus Synergy Stent, DARA proximal LAD with a 2.5 x 12mm Promus Synergy Stent 09/21/18 NSTEMI (non-ST elevated myocardial infarction) (Acute) - Physical Exam General: - - Groggy but wakes to voice. Follows commands. HEENT: Atraumatic, Normocephalic Oral: Moist Mucosa, No Gingival or Mucosal Lesions/ Ulcerations Neck: No Nodes, Thyroid Normal Size and Texture Lungs: Clear to auscultation, Normal air movement, No rhonchi, No wheeze Cardiovascular: Regular rate, Regular Rhythm, Normal S1, Normal S2, No murmurs Abdomen: Bowel Sounds Present, Soft, Non Tender, Non-Distended, No Hepato-splenomegaly Psych/Mental Status: Flat Affect Vital Signs Temp Pulse Resp BP Pulse Ox 36.6 C 79 19 H 112/57 L 96 09/22/18 00:00 09/22/18 06:00 09/22/18 06:00 09/22/18 06:00 09/22/18 06:00 Oxygen Flow Rate (L/min) 2 Oxygen Delivery Method Room Air Weight: 82.554 kg Body Mass Index (BMI) 29.3 Finger Stick Blood Glucose 227 Intake and Output for Last 24 Hours 09/20/18 09/21/18 09/22/18 23:59 23:59 23:59 Intake Total 5560 / 5560 120 / 120 Output Total 2500 / 2500 325 / 325 Balance 3060 / 3060 -205 / -205 Laboratory Tests Past 24 Hrs 09/21/18 09/21/18 09/21/18 08:44 14:30 16:30 WBC 8.8 8.9 RBC 3.32 L 3.53 L Hgb 9.4 L 10.0 L Hct 29.2 L 30.9 L MCV 88.0 87.5 MCH 28.3 28.3 MCHC 32.2 32.4 RDW 13.3 13.7 RDW Differential 40.7 43.7 Plt Count 272 245 MPV 10.7 10.7 Immature Gran % (Auto) 0.100 0.100 Neut % (Auto) 63.8 69.9 Lymph % (Auto) 24.1 16.7 L [place] % (Auto) 6.6 8.2 Eos % (Auto) 4.8 4.4 Baso % (Auto) 0.6 0.7 Absolute Neuts (auto) 5.6 6.2 Absolute Lymphs (auto) 2.12 1.49 Total Counted Not Reportable Not Reportable Activated Clotting Time 191 H Sodium Potassium Chloride Carbon Dioxide Anion Gap BUN Creatinine Estim Creat Clear Calc Est GFR (MDRD) Af Amer Est GFR (MDRD) Non-Af BUN/Creatinine Ratio Glucose Calcium Triglycerides Cholesterol LDL Cholesterol VLDL Cholesterol HDL Cholesterol 09/22/18 09/22/18 04:30 04:30 WBC 6.9 RBC 3.39 L Hgb 9.6 L Hct 29.9 L MCV 88.2 MCH 28.3 MCHC 32.1 RDW 13.4 RDW Differential 41.0 Plt Count 264 MPV 11.1 Immature Gran % (Auto) Neut % (Auto) Lymph % (Auto) [place] % (Auto) Eos % (Auto) Baso % (Auto) Absolute Neuts (auto) Absolute Lymphs (auto) Total Counted Activated Clotting Time Sodium 142 Potassium 4.0 Chloride 112 H Carbon Dioxide 22.0 Anion Gap 8 BUN 10 Creatinine 0.78 Estim Creat Clear Calc 78.08 Est GFR (MDRD) Af Amer 100 Est GFR (MDRD) Non-Af 83 BUN/Creatinine Ratio 12.9 Glucose 191 H Calcium 8.0 L Triglycerides 219 H Cholesterol 193 LDL Cholesterol 113 VLDL Cholesterol 44 H HDL Cholesterol 36 L POC Glucose 09/22/18 09/22/18 09/21/18 05:29 02:07 22:24 POC Glucose 189 H 195 H 189 H 09/21/18 09/21/18 09/21/18 19:27 16:59 14:10 POC Glucose 237 H 101 157 H 09/21/18 11:02 POC Glucose 220 H Discharge Diet: Low fat/ Low Cholesterol, 1800 Calorie Control Diet Discharge Activity: Return to Normal Activity Call your doctor if you observe: Shortness of breath, Chest pain Home Medications: Medications to take at Discharge Acetaminophen [Tylenol Tablet] 650 mg PO Q6H PRN PRN 09/20/18 Ascorbic Acid [Vitamin C] 500 mg PO BIDCM 09/20/18 Celluvisc 1 drop OP 4X/DAY 09/20/18 Gabapentin [Neurontin] 800 mg PO TIDCM 09/20/18 Insulin Aspart [Novolog Flexpen] 20 units SC TIDCM 09/20/18 Insulin Glargine [Lantus SoloStar Pen] 30 units SC 0800 09/20/18 Omeprazole [Prilosec] 20 mg PO DAILY 09/20/18 Oxycodone [Oxyir] 5 mg PO Q8H PRN PRN 09/20/18 Ropinirole HCl [Requip] 3 mg PO BID 09/20/18 Rosuvastatin Calcium [Crestor] 40 mg PO DAILY 09/20/18 proMETHazine tablet [Phenergan tablet] 25 mg PO Q6H PRN 09/20/18 Aspirin E.C. [Ecotrin] 81 mg PO DAILY@0800 tablet 09/22/18 Atorvastatin Calcium [Lipitor] 80 mg PO QHS #30 tablet 09/22/18 Clopidogrel Bisulfate [Plavix] 75 mg PO DAILY #30 tablet 09/22/18 Lisinopril [Zestril] 5 mg PO DAILY #30 tablet 09/22/18 Metoprolol Tartrate [Lopressor (beta tin)] 12.5 mg PO BID #60 tablet 09/22/18 Following Prescrptions Were Given to Patient: Atorvastatin Calcium [Lipitor] 80 mg PO QHS #30 tablet Clopidogrel Bisulfate [Plavix] 75 mg PO DAILY #30 tablet Lisinopril [Zestril] 5 mg PO DAILY #30 tablet Metoprolol Tartrate [Lopressor (beta tin)] 12.5 mg PO BID #60 tablet Other Amb Orders: Phase II, Outpatient Cardiac Rehab Location: None Selected Primary Care Physician: Raúl Eric MD [Primary Care Provider] - Within 2 Weeks Please Follow Up With: Saravanan Jean Baptiste MD When: 2-4 weeks Disposition: Home Minutes spent on discharge:: 28 Patient Condition:: Good Medical Necessity - Tobacco Use Smoking Status: Never smoker Meaningful Use Info Meaningful Use Diagnoses (Choose all that apply): AMI - AMI Aspirin given w/in 24hrs of arrival?: Yes ASA at discharge?: Yes Statins at discharge?: Yes [place]/ARB at discharge?: Yes Beta Tin at discharge?: Yes Done w/ Acute MA measure.: Yes Code Visit Inpatient E&M: 99926 Disch Hosp
--- NOTE | 2018-09-22 08:50 | CASEMGMT ---
KELSIE IRELAND ASSESSMENT Face to Face with patient for initial transition planning/care coordination assessment. KELSIE IRELAND introduced self and role at [facility]. Pt voices understanding and consents to assessment at this time. Pt resting in bed in no distress at this time. Pt is A/O at this time and answers all questions appropriately. Care providers, pharmacy, and demographics verified/updated at this time. PCP: Jeaneth Specialists: Trixie doctor, Dr Cleary Preferred Pharmacy: [facility] Insurance: [facility], [place] Prescription Benefit: Yes Living Will/HPOA: does not have LW or HCPOA. States does not want to talk with SW at this time to complete paperwork. Provided information on advanced directives and given Social Service rac card with number to call if chooses in the future to utilize [facility] social work for advanced directive completion. Educated patient that, if patient so chooses, can come back to [facility] and meet with a SW as an outpatient to complete health care advanced directives. Patient expresses understanding. LNOK: Daughter Living Arrangements: Lives alone in one-story home. 3 steps to enter. Transportation: Pt states she does not drive and that her daughter provides transportation for her. Pt given [facility] transport services information/contact number. DME: has the following DME: Grab bars, rollator, W/C. Pt states is interested in Medical alert information. This was given to her. Denies need for further DME at this time. HHC: Pt is current with [facility] for SN, PT/OT. Pt states wishes to continue with their services when she returns home. Call placed to QUEENIE Olivares, @ [facility] and she was made aware pt is discharging today. SNF: States she was just in TCU about a week ago. Pt wishes to return home with continued HHC and states has no concerns with going home at time of discharge. Pt states does not smoke or drink ETOH. CM to follow for any further discharge planning needs that may arise. Pt voices no further concerns/needs at this time. Advised pt to ask for CM if any further questions/concerns/needs arise. Voices understanding. D/C Plan: Home w/resumption of [facility] HHC, family support, and discharge plans in place. Delta MANLEY RN, CM
[2018-09-22] MEDS: Insulin Lispro 100 UNIT/ML INSULN.PEN 20 UNIT SC (08:53)
[2018-09-22] MEDS: Gabapentin 800 MG Tablet PO (08:54)
[2018-09-22] MEDS: Aspirin E.C. 81 MG Tablet PO (08:54)
[2018-09-22] MEDS: Ascorbic Acid 500 MG Tablet PO (08:56)
[2018-09-22] MEDS: Metoprolol Tartrate 25 MG Tablet 12.5 MG PO (08:57)
[2018-09-22] MEDS: Clopidogrel Bisulfate 75 MG Tablet PO (08:58)
[2018-09-22] MEDS: Pramipexole Di-HCl 0.5 MG Tablet 1.5 MG PO (08:58)
[2018-09-22] MEDS: Pantoprazole Sodium 20 MG Tablet PO (08:59)
--- NOTE | 2018-09-22 09:59 | EKG12_ITS ---
Test Reason : AM EKG Blood Pressure : / mmHG Vent. Rate : 082 BPM Atrial Rate : 082 BPM P-R Int : 156 ms QRS Dur : 082 ms QT Int : 414 ms P-R-T Axes : 047 014 145 degrees QTc Int : 483 ms Normal sinus rhythm Septal infarct , age undetermined T wave abnormality, consider lateral ischemia Abnormal ECG When compared with ECG of 21-SEP-2018 09:11, MANUAL COMPARISON REQUIRED, DATA IS UNCONFIRMED Confirmed by OTTO DELVALLE, DOMINIQUE ([id number]), avid editor MARLON GALEANA ([id number]) on 09/25/2018 7:55:54 AM Referred By: TERESSA Confirmed By:DOMINIQUE MENJIVAR MD
--- NOTE | 2018-09-25 13:52 | CASEMGMT ---
KELSIE [facility] Discharge Follow-up Phone Call: AJAY: Henrique Strata: 3 Call Date: 09/25/18 Discharge Date: 09/22/18 Time of Call: 1350 Duration: 0 ? Admitting Diagnosis: NSTEMI This RN BEKA attempted to contact pt via telephone for discharge follow-up. No answer received. No voicemail available. Will attempt again at a later time. Gus Aleman RN
== END 2018-09-22 09:30 | disposition home or self-care (01) | DRG 247 ==
LOC: ED 21:49 → PCU 09-21 00:06 → ICU 09-21 08:29
PROVIDERS: Internal Medicine Cardiovascular Disease; Admitting Provider Hospitalist; Emergency Provider Emergency Medicine; Family Provider Family Medicine; PCP Family Medicine
DX: I21.4 Non-ST elevation (NSTEMI) myocardial infarction (principal); I25.10 Atherosclerotic heart disease of native coronary artery without angina pectoris; E78.5 Hyperlipidemia, unspecified; G25.81 Restless legs syndrome; L97.509 Non-pressure chronic ulcer of other part of unspecified foot with unspecified severity; K21.9 Gastro-esophageal reflux disease without esophagitis; E11.621 Type 2 diabetes mellitus with foot ulcer; E11.65 Type 2 diabetes mellitus with hyperglycemia; F41.9 Anxiety disorder, unspecified; F32.9 Major depressive disorder, single episode, unspecified; Z82.49 Family history of ischemic heart disease and other diseases of the circulatory system; Z79.4 Long term (current) use of insulin; Z79.899 Other long term (current) drug therapy; Z89.421 Acquired absence of other right toe(s); G89.29 Other chronic pain; M54.9 Dorsalgia, unspecified
CPT/HCPCS: 36415; 36600; 71045; 74176; 80048; 80061; 80076; 82803; 82962; 83735; 84100; 84484; 85025; 85027; 85347; 85610; 85730; 92928; 93005; 93306; 93458; 99152; 99153; 99285; C1760; J7030; J7120; C1725; C1769; C1874; C1887; C9600; Q9967

== ENCOUNTER 2018-09-23 11:32 | Observation (INO) | payer MEDICARE, MEDICAID, SELFPAY ==
[2018-09-21 00:25] VITALS: BMI 29.3
[2018-09-21 13:23] VITALS: BMI 29.3
[2018-09-23] VITALS (13 sets, daily range): BP systolic 130–141; BP diastolic 67–87; PULSE 85–97; RESP 16–18; TEMP 36.8–37.1; O2SAT 96–98; BMI 29.0; BMI 29.5; BMI 29.6
--- NOTE | 2018-09-23 11:55 | EKG12_ITS ---
Test Reason : POST PCI Blood Pressure : / mmHG Vent. Rate : 076 BPM Atrial Rate : 076 BPM P-R Int : 164 ms QRS Dur : 084 ms QT Int : 410 ms P-R-T Axes : 040 024 075 degrees QTc Int : 461 ms Normal sinus rhythm Septal infarct , age undetermined Abnormal ECG When compared with ECG of 21-SEP-2018 00:51, MANUAL COMPARISON REQUIRED, DATA IS UNCONFIRMED Confirmed by OTTO DELVALLE, DOMINIQUE ([id number]), editorial intern MARLON GALEANA ([id number]) on 09/25/2018 7:58:11 AM Referred By: Confirmed By:DOMINIQUE MENJIVAR MD
--- NOTE | 2018-09-23 11:55 | RAD_ITS ---
STUDY: X-RAY CHEST REASON FOR EXAM: Female, 53 years old. Chest pain TECHNIQUE: Single view of the chest was obtained COMPARISON: September 20, 2018 chest radiograph FINDINGS: Chronic size is within normal limits. Minimal platelike atelectasis in the lung bases. No definite lung consolidation. No pleural effusion. Mild perihilar streaky opacities. No pneumothorax. IMPRESSION: Mild perihilar congestive changes. No evidence for focal airspace disease. Stable lung findings Electronically Signed: Nathan Mcghee, at 12:36 EST Tel , Service support , RAD/Chest 1 View (Portable)
[2018-09-23 12:03] LABS: Absolute Lymphocyte Count 1.26 X10^3/ul (0.83-4.51); Absolute Neutrophil Count 5.8 X10^3/uL (2.0-7.7); Basophil# 0.03 X10^3/uL; Basophil% 0.4 % (0-1); Eosinophil# 0.25 X10^3/uL; Eosinophils% 3.2 % (0-5); Hematocrit 34.9 % (37-47); Hemoglobin 11.5 g/dl (12.0-15.0); Lymphocyte # 1.26 X10^3/ul (4.0); Lymphocyte % 16.3 % (19-41); Mean Corpuscular Hgb 28.2 pg (27.0-32.0); Mean Corpuscular Volume 85.5 fL (81-99); Mean Platelet Vol. 10.8 fl (6.2-12.0); Monocyte% 5.2 % (0-10); Neutrophil # 5.78 X10^3/uL (2.7-7.7); Neutrophil % 74.8 % (47-70); POSITIVE COUNT NO; POSITIVE DIFFERENTIAL NO; POSITIVE MORPHOLOGY NO; Platelet Count 319 K/mm3 (150-450); RBC Distribution Width CV 13.4 % (11.6-14.6); RBC Distribution Width SD 41.6 fl (35.1-43.9); Red Blood Count 4.08 M/mm3 (4.2-5.4); White Blood Count 7.7 K/mm3 (4.4-11.0)
[2018-09-23 12:21] LABS: Anion Gap 8 (5-15); BUN 8 mg/dL (7-18); BUN/Creat Ratio 9.3 RATIO (10-20); Calcium,Total 9.2 mg/dL (8.5-10.1); Chloride 104 mmol/L (98-107); Creatinine, Serum 0.86 mg/dL (0.55-1.02); EST Glomerular Filtration Rate 74 mL/min (>60); Est Glom Filt Rate - Afr Amer 89 mL/min (>60); Estimated Creatinine Clearance 70.82 ml/min; Glucose 255 mg/dL (74-106); Potassium 3.8 mmol/L (3.5-5.1); Sodium Level 139 mmol/L (136-145)
[2018-09-23] MEDS: 0.9% Normal Saline 1,000 ML 150 ML IV (12:48)
--- NOTE | 2018-09-23 12:49 | ED.VISSUMM ---
- ER Visit Summary Date of Service: 09/23/18 Chief Complaint: [Chest pain] History of Present Illness: The patient is a 53 F [presents to the emergency department complaint of chest discomfort that started around 8 PM last night. Patient states the pain is been somewhat intermittent and has been lasting up to an hour at a time. She describes it as dull and a pressure-like sensation in her left chest. No real radiation of the pain. She denies any shortness of breath or diaphoresis. Patient tells me that 2 days ago she was admitted to the hospital and underwent a heart catheterization and had 2 stents placed for a non-ST elevation [place]. Patient denies recent travel or surgery.] EMS gave patient aspirin and nitro which seemed to help her pain. She currently rates her pain a 4 out of 10. Physical Examination: [HELORENZO-PERRLA, EOMI. Cranial nerves II through XII grossly intact. TMs clear. Mucous membranes moist. No adenopathy. Cardiovascular-regular rate and rhythm without murmur or ectopy Lungs-clear to auscultation, chest wall stable without crepitus or subcu emphysema Abdomen-normoactive bowel sounds, soft, nontender, no rebound or rigidity, no peritoneal signs. Extremities-intact ?4, normal range of motion, normal pulses, atraumatic] Test Results: [EKG obtained on arrival shows sinus rhythm with a ventricular rate of 90 bpm with old septal infarct noted and some nonspecific ST changes. When compared with prior EKG no new changes noted. CBC with differential showed a white count 7.7, hemoglobin 11.5, hematocrit 35, platelets 319. History is unremarkable. Troponin was 2.57 and 2 days ago it was over 7.] Emergency Department Course and Treatment: [Patient received 1 sublingual nitro which did improve her pain and she had an inch of Nitropaste placed to the anterior chest wall.] Treatment Plan: [This point the etiology of her chest pains unclear her troponin is down from 2 days ago but it is unclear if its on its way back up. I will discuss case with hospitalist evaluate for admission] Disposition: [Admit] Impression: [Chest pain-rule out acute coronary syndrome] This note was generated with [employer] software. It may contain incorrect words, spelling, and punctuation that were not noted in review of the chart prior to signing ED Disposition - Plan for ED Patient: Chief Complaint: Chest Pain Referrals: Raúl Eric MD [Primary Care Provider] -
--- NOTE | 2018-09-23 12:52 | ED.DCSUM_ITS ---
- ER Visit Summary Date of Service: 09/23/18 Chief Complaint: [Chest pain] History of Present Illness: The patient is a 53 F [presents to the emergency department complaint of chest discomfort that started around 8 PM last night. Patient states the pain is been somewhat intermittent and has been lasting up to an hour at a time. She describes it as dull and a pressure-like sensation in her left chest. No real radiation of the pain. She denies any shortness of breath or diaphoresis. Patient tells me that 2 days ago she was admitted to the hospital and underwent a heart catheterization and had 2 stents placed for a non-ST elevation [place]. Patient denies recent travel or surgery.] EMS gave patient aspirin and nitro which seemed to help her pain. She currently rates her pain a 4 out of 10. Physical Examination: [HELORENZO-PERRLA, EOMI. Cranial nerves II through XII grossly intact. TMs clear. Mucous membranes moist. No adenopathy. Cardiovascular-regular rate and rhythm without murmur or ectopy Lungs-clear to auscultation, chest wall stable without crepitus or subcu emp hysema Abdomen-normoactive bowel sounds, soft, nontender, no rebound or rigidity, no peritoneal signs. Extremities-intact ?4, normal range of motion, normal pulses, atraumatic] Test Results: [EKG obtained on arrival shows sinus rhythm with a ventricular rate of 90 bpm with old septal infarct noted and some nonspecific ST changes. When compared with prior EKG no new changes noted. CBC with differential showed a white count 7.7, hemoglobin 11.5, hematocrit 35, platelets 319. History is unremarkable. Troponin was 2.57 and 2 days ago it was over 7.] Emergency Department Course and Treatment: [Patient received 1 sublingual nitro which did improve her pain and she had an inch of Nitropaste placed to the anterior chest wall.] Treatment Plan: [This point the etiology of her chest pains unclear her troponin is down from 2 days ago but it is unclear if its on its way back up. I will discuss case with hospitalist evaluate for admission] Disposition: [Admit] Impression: [Chest pain-rule out acute coronary syndrome] This note was generated with [employer] software. It may contain incorrect words, spelling, and punctuation that were not noted in review of the chart prior to signing ED Disposition - Plan for ED Patient: Chief Complaint: Chest Pain Referrals: Raúl Eric MD [Primary Care Provider] -
[2018-09-23] MEDS: Nitroglycerin Oint 1 INCH PACKET TRANSDERM. (12:53)
--- NOTE | 2018-09-23 13:23 | NURSING ---
PCU OBS ELMER FERREIRA
--- NOTE | 2018-09-23 13:26 | PCM.HP.STD ---
Problem List (1) NSTEMI (non-ST elevated myocardial infarction) Status: Acute (2) HLD (hyperlipidemia) Status: Chronic (3) GERD (gastroesophageal reflux disease) Status: Chronic (4) Depression Status: Chronic (5) RLS (restless legs syndrome) Status: Chronic (6) Type II diabetes mellitus, uncontrolled Status: Chronic (7) Anxiety state Status: Chronic History of Present Illness Date of Admission: 09/23/18 Chief Complaint: Chest pain. The patient is a 53 year old F with past medical history as mentioned above presented to the emergency room because of chest pain. Her symptoms started last night around 8 PM when she was sitting on a chair, started complaining of left-sided chest pain, dull aching pain, 7 out of 10 severity, intermittent, radiates to her left arm, no associated symptoms and no aggravating or relieving factors. She denied associated shortness of breath, palpitation, dizziness, sweating, nausea or vomiting. She mentioned the pain has been intermittent, comes and goes and nothing specific that brings pain up. Patient was discharged from the hospital yesterday, was admitted for acute non-ST elevation LA, underwent cardiac catheterization with PTCA/DARA to mid LAD and proximal LAD. She stated that she did not take her Plavix today. In the emergency department, her vital signs are stable. Her routine blood work was remarkable for chronic anemia, otherwise normal. Her troponin is 2.57. Troponin was 7.73-day before yesterday. Her EKG revealed normal sinus rhythm, no evidence of acute ST elevation. Chest x-ray showed no acute findings. She is being admitted for chest pain for evaluation. Past Medical History Past Medical History (Chronic Problems): Chronic Problems (Last Updated 09/23/18 @ 13:26 by Deepa Irizarry MD) HLD (hyperlipidemia) (Chronic) Neuropathic pain (Chronic) GERD (gastroesophageal reflux disease) (Chronic) Hypomagnesemia (Chronic) Back pain, chronic (Chronic) Depression (Chronic) Diabetic foot ulcer associated with type 2 diabetes mellitus (Chronic) RLS (restless legs syndrome) (Chronic) Type II diabetes mellitus, uncontrolled (Chronic) Anxiety state (Chronic) Medical History: Medical History (Last Updated 09/23/18 @ 13:26 by Deepa Irizarry MD) HLD (hyperlipidemia) (Chronic) E78.5 Allergies oxycodone HCl [From OxyContin] Allergy (Verified 09/20/18 20:55) Rash Penicillins Allergy (Verified 09/20/18 20:55) Shortness of breath Home Medications: Ambulatory Orders Medication Instructions Recorded Acetaminophen [Tylenol Tablet] 650 mg PO Q6H PRN PRN 09/20/18 Ascorbic Acid [Vitamin C] 500 mg PO BIDCM 09/20/18 Celluvisc 1 drop OP 4X/DAY 09/20/18 Gabapentin [Neurontin] 800 mg PO TIDCM 09/20/18 Insulin Aspart [Novolog Flexpen] 20 units SC TIDCM 09/20/18 Insulin Glargine [Lantus SoloStar 30 units SC 0800 09/20/18 Pen] Ropinirole HCl [Requip] 3 mg PO BID 09/20/18 Clopidogrel Bisulfate [Plavix] 75 mg PO DAILY #30 tablet 09/22/18 Aspirin E.C. [Ecotrin] 81 mg PO DAILY 09/23/18 Rosuvastatin Calcium [Crestor] 20 mg PO QHS 09/23/18 Surgical History: - - status post I&D of R foot 5th metatarsal abscess, 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 Bilateral carpal tunnel surgery 1994, right shoulder surgery in 1994, section x2. 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 She had had multiple strokes preceding that. Patient had 3 brothers who had bypass surgery in their 50s. Paternal History Items: - - Patient states her father when she was 5 years old, denies known medical history, denies known cardiac history. Sibling History Items: - - She has one brother who is secondary to cancer and she does not know what kind of cancer he had. She also has 3 brothers with a history of cardiovascular disease, stents and coronary artery bypass grafting. Review of Systems Constitutional: Denies: Anorexia, Chills, Fever, Weakness Eyes: Denies: Blurred vision, Double vision, Drainage, Redness HEENT: Denies: Difficulty Hearing, Ear Pain, Eye Pain, Nasal Congestion, Sore Throat Cardiovascular: Reports: Chest Pain. Denies: Chest Pressure, Chest Tightness, Edema, Heaviness, Light Headedness, Orthopnea, Paroxysmal Noc. Dyspnea, Syncope Respiratory: Denies: Cough, Pleuritic Pain, Shortness of Breath, Sputum production, Wheezing Gastrointestinal: Denies: Abdominal Pain, Constipation, Diarrhea, Nausea, Vomiting Genitourinary: Denies: Dysuria, Frequency, Hematuria Musculoskeletal: Denies: Arm Pain, Back Pain, Foot Pain Skin: Denies: Dryness, Rash Neurological: Denies: Balance problems, Double vision, Change in Speech, Slurred speech, Headaches, Incoordination, Numbness Psychiatric: Reports: Anxiety. Denies: Depression Endocrine: Denies: Change in Body Habitus, Polydipsia VTE Information - Inpt Only VTE Present on Admission: No VTE Mechan Device Prophylaxis: None VTE Pharm Prophylaxis ordered?: No Patient Problems: Active and Suspected Problems (Last Updated 09/23/18 @ 13:26 by Deepa Irizarry MD) NSTEMI (non-ST elevated myocardial infarction) (Acute) - Physical Exam General: Alert, Oriented x3, Cooperative, No apparent distress HEENT: Atraumatic, PERRLA, EOMI, Normocephalic Oral: Moist Mucosa, No Gingival or Mucosal Lesions/ Ulcerations Neck: Supple, No JVD, Negative Carotid Bruits, Trachea Midline, Thyroid Normal Size and Texture Lungs: Clear to auscultation, Normal air movement, No rhonchi, No wheeze, No rales Cardiovascular: Regular rate, Regular Rhythm, Normal S1, Normal S2, No murmurs, PMI Normal Abdomen: Bowel Sounds Present, Soft, Non Tender, Non-Distended, No Hepato-splenomegaly Extremities: No clubbing, No cyanosis, No edema Skin: No rashes, Ulcer/ Wound Lymphatic: No Cervical, Supraclavicular, or Inguinal Adenopathy Neurological: Cranial nerves II-XII grossly intact, Motor Exam 5/5 strength throughout Psych/Mental Status: Normal Affect, Appropriate, Alert and oriented to time, place, person, mood and affect Vital Signs Temp Pulse Resp BP Pulse Ox 98.6 F 93 16 141/87 H 97 09/23/18 11:33 09/23/18 12:55 09/23/18 12:55 09/23/18 12:55 09/23/18 12:55 Oxygen Delivery Method Room Air Weight: 180 lb Body Mass Index (BMI) 29.0 Finger Stick Blood Glucose 227 Laboratory Tests Past 24 Hrs 09/23/18 09/23/18 11:45 11:45 WBC 7.7 RBC 4.08 L Hgb 11.5 L Hct 34.9 L MCV 85.5 MCH 28.2 MCHC 33.0 RDW 13.4 RDW Differential 41.6 Plt Count 319 MPV 10.8 Immature Gran % (Auto) 0.100 Neut % (Auto) 74.8 H Lymph % (Auto) 16.3 L [place] % (Auto) 5.2 Eos % (Auto) 3.2 Baso % (Auto) 0.4 Absolute Neuts (auto) 5.8 Absolute Lymphs (auto) 1.26 Total Counted Not Reportable Sodium 139 Potassium 3.8 Chloride 104 Carbon Dioxide 27.0 Anion Gap 8 BUN 8 Creatinine 0.86 Estim Creat Clear Calc 70.82 Est GFR (MDRD) Af Amer 89 Est GFR (MDRD) Non-Af 74 BUN/Creatinine Ratio 9.3 L Glucose 255 H Calcium 9.2 Troponin I 2.570 H* Clinical Impression(s) from Imaging Studies Chest X-Ray 09/23/18 11:55 Assessment/Plan All Active Problems (Last Updated 09/23/18 @ 13:26 by Deepa Irizarry MD) NSTEMI (non-ST elevated myocardial infarction) (Acute) This is a 52 years old female patient presented to the emergency room because of chest pain, she was discharged from the hospital yesterday after admission for acute non-ST elevation LA status post PCI/DARA to mid and proximal LAD and she is being admitted for evaluation. #1 chest pain: Patient was discharged from the hospital yesterday after she had PTCI/DARA to mid and proximal LAD. EKG from today reviewed, showed no acute ST elevation. Troponin is 2.5, trending down compared to the one from before yesterday. Chest x-ray showed no acute findings. Patient stated that she did not take her Plavix today. Vital signs are stable. Plan: Admit to PCU for observation, cardiac monitoring, serial cardiac enzymes, repeat EKG tomorrow morning, sublingual nitroglycerin as needed for pain, continue aspirin, Plavix, statins, cardiology consult. #2 CAD status post stents: Status post PCI/DARA to mid and proximal LAD that was done 2 days ago. Plan as above, continue aspirin, Plavix and statins, cardiology consult. 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 Plan for ADA diet, Accu-Cheks, insulin sliding scale, continue home doses of Lantus and pre-meal NovoLog. #4 hyperlipidemia: Continue statins. #5 depression/anxiety/restless leg syndrome: She is only on Requip for restless legs. She is not suicidal homicidal. #6 chronic back pain/neuropathic pain: Continue gabapentin and Tylenol as needed. #7 DVT prophylaxis: Low-risk patient, no prophylaxis indicated, ambulate. This note was generated with [employer] dictation software. It may contain incorrect words, spelling, and punctuation that were not noted in checking the note before signing. Code Visit OBSV E&M: 96942 Initial observation care L3
--- NOTE | 2018-09-23 13:30 | HP.PCM_ITS ---
Problem List (1) NSTEMI (non-ST elevated myocardial infarction) Status: Acute (2) HLD (hyperlipidemia) Status: Chronic (3) GERD (gastroesophageal reflux disease) Status: Chronic (4) Depression Status: Chronic (5) RLS (restless legs syndrome) Status: Chronic (6) Type II diabetes mellitus, uncontrolled Status: Chronic (7) Anxiety state Status: Chronic History of Present Illness Date of Admission: 09/23/18 Chief Complaint: Chest pain. The patient is a 53 year old F with past medical history as mentioned above presented to the emergency room because of chest pain. Her symptoms started last night around 8 PM when she was sitting on a chair, started complaining of left-sided chest pain, dull aching pain, 7 out of 10 severity, intermittent, radiates to her left arm, no associated symptoms and no aggravating or relieving factors. She denied associated shortness of breath, palpitation, dizziness, sweating, nausea or vomiting. She mentioned the pain has been intermittent, comes and goes and nothing specific that brings pain up. Patient was discharged from the hospital yesterday, was admitted for acute non-ST elevation UT, underwent cardiac catheterization with PTCA/DARA to mid LAD and proximal LAD. She stated that she did not take her Plavix today. In the emergency department, her vital signs are stable. Her routine blood work was remarkable for chronic anemia, otherwise normal. Her troponin is 2.57. Troponin was 7.73-day before yesterday. Her EKG revealed normal sinus rhythm, no evidence of acute ST elevation. Chest x-ray showed no acute findings. She is being admitted for c hest pain for evaluation. Past Medical History Past Medical History (Chronic Problems): Chronic Problems (Last Updated 09/23/18 @ 13:26 by Deepa Irizarry MD) HLD (hyperlipidemia) (Chronic) Neuropathic pain (Chronic) GERD (gastroesophageal reflux disease) (Chronic) Hypomagnesemia (Chronic) Back pain, chronic (Chronic) Depression (Chronic) Diabetic foot ulcer associated with type 2 diabetes mellitus (Chronic) RLS (restless legs syndrome) (Chronic) Type II diabetes mellitus, uncontrolled (Chronic) Anxiety state (Chronic) Medical History: Medical History (Last Updated 09/23/18 @ 13:26 by Deepa Irizarry MD) HLD (hyperlipidemia) (Chronic) E78.5 Allergies oxycodone HCl [From OxyContin] Allergy (Verified 09/20/18 20:55) Rash Penicillins Allergy (Verified 09/20/18 20:55) Shortness of breath Home Medications: Ambulatory Orders Medication Instructions Recorded Acetaminophen [Tylenol Tablet] 650 mg PO Q6H PRN PRN 09/20/18 Ascorbic Acid [Vitamin C] 500 mg PO BIDCM 09/20/18 Celluvisc 1 drop OP 4X/DAY 09/20/18 Gabapentin [Neurontin] 800 mg PO TIDCM 09/20/18 Insulin Aspart [Novolog Flexpen] 20 units SC TIDCM 09/20/18 Insulin Glargine [Lantus SoloStar 30 units SC 0800 09/20/18 Pen] Ropinirole HCl [Requip] 3 mg PO BID 09/20/18 Clopidogrel Bisulfate [Plavix] 75 mg PO DAILY #30 tablet 09/22/18 Aspirin E.C. [Ecotrin] 81 mg PO DAILY 09/23/18 Rosuvastatin Calcium [Crestor] 20 mg PO QHS 09/23/18 Surgical History: - - status post I&D of R foot 5th metatarsal abscess, 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 Bilateral carpal tunnel surgery 1994, right shoulder surgery in 1994, section x2. 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 She had had multiple strokes preceding that. Patient had 3 brothers who had bypass surgery in their 50s. Paternal History Items: - - Patient states her father when she was 5 years old, denies known medical history, denies known cardiac history. Sibling History Items: - - She has one brother who is secondary to cancer and she does not know what kind of cancer he had. She also has 3 brothers with a history of cardiovascular disease, stents and coronary artery bypass grafting. Review of Systems Constitutional: Denies: Anorexia, Chills, Fever, Weakness Eyes: Denies: Blurred vision, Double vision, Drainage, Redness HEENT: Denies: Difficulty Hearing, Ear Pain, Eye Pain, Nasal Congestion, Sore Throat Cardiovascular: Reports: Chest Pain. Denies: Chest Pressure, Chest Tightness, Edema, Heaviness, Light Headedness, Orthopnea, Paroxysmal Noc. Dyspnea, Syncope Respiratory: Denies: Cough, Pleuritic Pain, Shortness of Breath, Sputum production, Wheezing Gastrointestinal: Denies: Abdominal Pain, Constipation, Diarrhea, Nausea, Vomiting Genitourinary: Denies: Dysuria, Frequency, Hematuria Musculoskeletal: Denies: Arm Pain, Back Pain, Foot Pain Skin: Denies: Dryness, Rash Neurological: Denies: Balance problems, Double vision, Change in Speech, Slurred speech, Headaches, Incoordination, Numbness Psychiatric: Reports: Anxiety. Denies: Depression Endocrine: Denies: Change in Body Habitus, Polydipsia VTE Information - Inpt Only VTE Present on Admission: No VTE Mechan Device Prophylaxis: None VTE Pharm Prophylaxis ordered?: No Patient Problems: Active and Suspected Problems (Last Updated 09/23/18 @ 13:26 by Deepa Irizarry MD) NSTEMI (non-ST elevated myocardial infarction) (Acute) - Physical Exam General: Alert, Oriented x3, Cooperative, No apparent distress HEENT: Atraumatic, PERRLA, EOMI, Normocephalic Oral: Moist Mucosa, No Gingival or Mucosal Lesions/ Ulcerations Neck: Supple, No JVD, Negative Carotid Bruits, Trachea Midline, Thyroid Normal Size and Texture Lungs: Clear to auscultation, Normal air movement, No rhonchi, No wheeze, No rales Cardiovascular: Regular rate, Regular Rhythm, Normal S1, Normal S2, No murmurs, PMI Normal Abdomen: Bowel Sounds Present, Soft, Non Tender, Non-Distended, No Hepato- splenomegaly Extremities: No clubbing, No cyanosis, No edema Skin: No rashes, Ulcer/ Wound Lymphatic: No Cervical, Supraclavicular, or Inguinal Adenopathy Neurological: Cranial nerves II-XII grossly intact, Motor Exam 5/5 strength throughout Psych/Mental Status: Normal Affect, Appropriate, Alert and oriented to time, place, person, mood and affect Vital Signs Temp Pulse Resp BP Pulse Ox 98.6 F 93 16 141/87 H 97 09/23/18 11:33 09/23/18 12:55 09/23/18 12:55 09/23/18 12:55 09/23/18 12:55 Oxygen Delivery Method Room Air Weight: 180 lb Body Mass Index (BMI) 29.0 Finger Stick Blood Glucose 227 Laboratory Tests Past 24 Hrs 09/23/18 09/23/18 11:45 11:45 WBC 7.7 RBC 4.08 L Hgb 11.5 L Hct 34.9 L MCV 85.5 MCH 28.2 MCHC 33.0 RDW 13.4 RDW Differential 41.6 Plt Count 319 MPV 10.8 Immature Gran % (Auto) 0.100 Neut % (Auto) 74.8 H Lymph % (Auto) 16.3 L [place] % (Auto) 5.2 Eos % (Auto) 3.2 Baso % (Auto) 0.4 Absolute Neuts (auto) 5.8 Absolute Lymphs (auto) 1.26 Total Counted Not Reportable Sodium 139 Potassium 3.8 Chloride 104 Carbon Dioxide 27.0 Anion Gap 8 BUN 8 Creatinine 0.86 Estim Creat Clear Calc 70.82 Est GFR (MDRD) Af Amer 89 Est GFR (MDRD) Non-Af 74 BUN/Creatinine Ratio 9.3 L Glucose 255 H Calcium 9.2 Troponin I 2.570 H* Clinical Impression(s) from Imaging Studies Chest X-Ray 09/23/18 11:55 Assessment/Plan All Active Problems (Last Updated 09/23/18 @ 13:26 by Deepa Irizarry MD) NSTEMI (non-ST elevated myocardial infarction) (Acute) This is a 52 years old female patient presented to the emergency room because of chest pain, she was discharged from the hospital yesterday after admission for acute non-ST elevation UT status post PCI/DARA to mid and proximal LAD and she is being admitted for evaluation. #1 chest pain: Patient was discharged from the hospital yesterday after she had PTCI/DARA to mid and proximal LAD. EKG from today reviewed, showed no acute ST elevation. Troponin is 2.5, trending down compared to the one from before yesterday. Chest x-ray showed no acute findings. Patient stated that she did not take her Plavix today. Vital signs are stable. Plan: Admit to PCU for observation, cardiac monitoring, serial cardiac enzymes, repeat EKG tomorrow morning, sublingual nitroglycerin as needed for pain, continue aspirin, Plavix, statins, cardiology consult. #2 CAD status post stents: Status post PCI/DARA to mid and proximal LAD that was done 2 days ago. Plan as above, continue aspirin, Plavix and statins, cardiology consult. 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 Plan for ADA diet, Accu-Cheks, insulin sliding scale, continue home doses of Lantus and pre-meal NovoLog. #4 hyperlipidemia: Continue statins. #5 depression/anxiety/restless leg syndrome: She is only on Requip for restless legs. She is not suicidal homicidal. #6 chronic back pain/neuropathic pain: Continue gabapentin and Tylenol as needed. #7 DVT prophylaxis: Low-risk patient, no prophylaxis indicated, ambulate. This note was generated with [employer] dictation software. It may contain incorrect words, spelling, and punctuation that were not noted in checking the note before signing. Code Visit OBSV E&M: 48516 Initial observation care L3
--- NOTE | 2018-09-23 13:57 | EKG12_ITS ---
Test Reason : CP Blood Pressure : / mmHG Vent. Rate : 090 BPM Atrial Rate : 090 BPM P-R Int : 150 ms QRS Dur : 088 ms QT Int : 386 ms P-R-T Axes : 038 025 116 degrees QTc Int : 472 ms Normal sinus rhythm Septal infarct , age undetermined Abnormal ECG Confirmed by OTTO DELVALLE, DOMINIQUE ([id number]), online editor MARLON GALEANA ([id number]) on 09/27/2018 3:54:14 PM Referred By: ADDIE Confirmed By:DOMINIQUE MENJIVAR MD
[2018-09-23] MEDS: Insulin Lispro 100 UNIT/ML INSULN.PEN 20 UNIT SC (16:02)
[2018-09-23] MEDS: Clopidogrel Bisulfate 75 MG Tablet PO (16:04)
[2018-09-23] MEDS: Ascorbic Acid 500 MG Tablet PO (16:04)
[2018-09-23] MEDS: Gabapentin 800 MG Tablet PO (16:04)
--- NOTE | 2018-09-23 16:14 | NURSING ---
nutritional assessment cued to order supplement. Not ordered on nursing end d/t diet order containing order for glucerna shake with trays.
[2018-09-23] MEDS: Insulin Lispro 100 UNIT/ML INSULN.PEN SC (21:21)
[2018-09-23] MEDS: Pramipexole Di-HCl 0.5 MG Tablet 1.5 MG PO (21:22)
[2018-09-23] MEDS: Metoprolol Tartrate 25 MG Tablet 12.5 MG PO (21:24)
[2018-09-23] MEDS: Atorvastatin Calcium 80 MG Tablet PO (21:24)
[2018-09-23 21:31] LABS: Bedside Glucose 318 mg/dL (70-110)
[2018-09-24] VITALS (7 sets, daily range): BP systolic 132–153; BP diastolic 76–88; PULSE 75–91; RESP 14; TEMP 36.7–37; O2SAT 96–98
[2018-09-24] MEDS: Acetaminophen 325 MG Tablet 650 MG PO (01:07)
--- NOTE | 2018-09-24 01:15 | EKG12_ITS ---
Test Reason : CP Blood Pressure : / mmHG Vent. Rate : 086 BPM Atrial Rate : 086 BPM P-R Int : 152 ms QRS Dur : 088 ms QT Int : 398 ms P-R-T Axes : 049 031 126 degrees QTc Int : 476 ms Normal sinus rhythm Septal infarct , age undetermined T wave abnormality, consider anterolateral ischemia Abnormal ECG When compared with ECG of 23-SEP-2018 14:08, MANUAL COMPARISON REQUIRED, DATA IS UNCONFIRMED Confirmed by OTTO DELVALLE, DOMINIQUE ([id number]), desk editor MARLON GALEANA ([id number]) on 09/27/2018 4:00:18 PM Referred By: DEYVI Confirmed By:DOMINIQUE MENJIVAR MD
--- NOTE | 2018-09-24 01:18 | NURSING ---
Pt c/o being woken up with chest pain/pressure /10 and slight headache /. Tylenol given for headache. Before Nitro could be given patient began to feel better, states pain is more of an ache now and only 3/10. refusing Nitro at this time. Will obtain EKG.
[2018-09-24 04:56] LABS: Bedside Glucose 280 mg/dL (70-110)
[2018-09-24 07:35] LABS: Bedside Glucose 298 mg/dL (70-110)
[2018-09-24] MEDS: Insulin Lispro 100 UNIT/ML INSULN.PEN SC ×2 (08:59→11:09)
[2018-09-24] MEDS: Aspirin E.C. 81 MG Tablet PO (09:00)
[2018-09-24] MEDS: Insulin Lispro 100 UNIT/ML INSULN.PEN 20 UNIT SC ×2 (09:00→11:09)
[2018-09-24] MEDS: Gabapentin 800 MG Tablet PO ×2 (09:01→11:08)
[2018-09-24] MEDS: Metoprolol Tartrate 25 MG Tablet 12.5 MG PO (09:01)
[2018-09-24] MEDS: Ascorbic Acid 500 MG Tablet PO (09:01)
[2018-09-24] MEDS: Lisinopril 5 MG Tablet PO (09:02)
[2018-09-24] MEDS: Pramipexole Di-HCl 0.5 MG Tablet 1.5 MG PO (09:02)
[2018-09-24] MEDS: Clopidogrel Bisulfate 75 MG Tablet PO (09:02)
[2018-09-24 11:15] LABS: Bedside Glucose 391 mg/dL (70-110)
--- NOTE | 2018-09-24 11:36 | DCINST_ITS ---
You will use the following diet at home:: Calorie/Carbohydrate Controlled (specify 1200, 1400, etc) - 1800 jose., Cardiac Your food should be the consistency of: Regular, Mechanical soft (ground) Discharge Activity: Return to Normal Activity Weight Bearing Status: Full weight bearing Call your doctor if you observe: Fever of 101 or Higher, Shortness of breath, Dizziness, Fainting spells, Chest pain, Increased palpitations (irregular heartbeat), Uncontrolled pain Allergies/Adverse Reactions: Allergies oxycodone HCl [From OxyContin] Allergy (Verified 09/20/18 20:55) Rash Penicillins Allergy (Verified 09/20/18 20:55) Shortness of breath Medications to take at Discharge Acetaminophen [Tylenol Tablet] 650 mg PO Q6H PRN PRN 09/20/18 Ascorbic Acid [Vitamin C] 500 mg PO BIDCM 09/20/18 Celluvisc 1 drop OP 4X/DAY 09/20/18 Gabapentin [Neurontin] 800 mg PO TIDCM 09/20/18 Insulin Aspart [Novolog Flexpen] 20 units SC TIDCM 09/20/18 Insulin Glargine [Lantus SoloStar Pen] 30 units SC 0800 09/20/18 Ropinirole HCl [Requip] 3 mg PO BID 09/20/18 Clopidogrel Bisulfate [Plavix] 75 mg PO DAILY #30 tab 09/22/18 Aspirin E.C. [Ecotrin] 81 mg PO DAILY 09/23/18 Atorvastatin Calcium [Lipitor] 80 mg PO QHS 09/23/18 Lisinopril [Zestril] 5 mg PO DAILY 09/23/18 Metoprolol Tartrate [Lopressor (beta kunal)] 12.5 mg PO BID 09/23/18 Omeprazole [Prilosec] 20 mg PO DAILY 09/23/18 Rosuvastatin Calcium [Crestor] 40 mg PO QHS 09/23/18 Primary Care Physician: Raúl Eric MD [Primary Care Provider] - Please follow up with your Primary Care Physician in: 1 week. Test Results: Test results from this visit will be discussed in further detail at your follow- up appointment, if applicable. Please Follow Up With: Saravanan Jean Baptiste MD When: 2 weeks.
--- NOTE | 2018-09-24 11:39 | CON.PCM_ITS ---
Problem List (1) Chest pain Status: Acute Reason for Consult Date of Consultation: 09/24/18 History of Present Illness: The patient is a 53 year old F who was admitted to the hospital recently with a non-ST elevation myocardial infarction. Subsequently she has had coronary angiography performed which showed significant lesions in the mid and proximal left anterior descending artery. Successful percutaneous revascularization was performed with placement of 2 drug-eluting stent. Patient was then discharged home. Yesterday, the patient again experienced some left-sided chest discomfort. She describes it as different from her symptoms when she had a non-ST elevation myocardial infarction. Denies any associated shortness of breath. No nausea or vomiting. She describes some radiation to the left shoulder. She cannot identify any precipitating, exacerbating or relieving factors. Presently she is pain-free. [] Past Medical History Allergies/Adverse Reactions: Allergies oxycodone HCl [From OxyContin] Allergy (Verified 09/20/18 20:55) Rash Penicillins Allergy (Verified 09/20/18 20:55) Shortness of breath Home Medications: Ambulatory Orders Medication Instructions Recorded Acetaminophen [Tylenol Tablet] 650 mg PO Q6H PRN PRN 09/20/18 Ascorbic Acid [Vitamin C] 500 mg PO BIDCM 09/20/18 Celluvisc 1 drop OP 4X/DAY 09/20/18 Gabapentin [Neurontin] 800 mg PO TIDCM 09/20/18 Insulin Aspart [Novolog Flexpen] 20 units SC TIDCM 09/20/18 Insulin Glargine [Lantus SoloStar 30 units SC 0800 09/20/18 Pen] Ropinirole HCl [Requip] 3 mg PO BID 09/20/18 Clopidogrel Bisulfate [Plavix] 75 mg PO DAILY #30 tab 09/22/18 Aspirin E.C. [Ecotrin] 81 mg PO DAILY 09/23/18 Atorvastatin Calcium [Lipitor] 80 mg PO QHS 09/23/18 Lisinopril [Zestril] 5 mg PO DAILY 09/23/18 Metoprolol Tartrate [Lopressor 12.5 mg PO BID 09/23/18 (Beta Tin)] Omeprazole [Prilosec] 20 mg PO DAILY 09/23/18 Rosuvastatin Calcium [Crestor] 40 mg PO QHS 09/23/18 Past Medical History (Chronic Problems): Chronic Problems (Last Updated 09/23/18 @ 13:26 by Deepa Irizarry MD) HLD (hyperlipidemia) (Chronic) Neuropathic pain (Chronic) GERD (gastroesophageal reflux disease) (Chronic) Hypomagnesemia (Chronic) Back pain, chronic (Chronic) Depression (Chronic) Diabetic foot ulcer associated with type 2 diabetes mellitus (Chronic) RLS (restless legs syndrome) (Chronic) Type II diabetes mellitus, uncontrolled (Chronic) Anxiety state (Chronic) Surgical History: - - status post I&D of R foot 5th metatarsal abscess, 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 Bilateral carpal tunnel surgery 1994, right shoulder surgery in 1994, section x2. 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 She had had multiple strokes preceding that. Patient had 3 brothers who had bypass surgery in their 50s. Paternal History Items: - - Patient states her father when she was 5 years old, denies known medical history, denies known cardiac history. Sibling History Items: - - She has one brother who is secondary to cancer and she does not know what kind of cancer he had. She also has 3 brothers with a history of cardiovascular disease, stents and coronary artery bypass grafting. Lives: Alone Smoking Status: Never smoker Alcohol: None Drugs: None Review of Systems - Review of Systems General: Denies: Fever, Chills HEENT: Denies: Vision Change Cardiovascular: Reports: Chest Discomfort at Rest. Denies: Shortness of Breath, Orthopnea, PND Respiratory: Denies: Cough, Hemoptysis Gastrointestinal: Denies: Abdominal Discomfort, Jaundice, Nausea Hematologic/ Lymphatic: Denies: Easy Brusing, Easy Bleeding Subjectve: Comfortable. No apparent distress Objective: Vital Signs Temp Pulse Resp BP Pulse Ox 98.1 F 91 14 153/88 H 97 09/24/18 09:05 09/24/18 11:00 09/24/18 09:05 09/24/18 09:05 09/24/18 09:05 Oxygen Delivery Method Room Air Weight: 83.143 kg Body Mass Index (BMI) 29.5 Finger Stick Blood Glucose 227 Intake and Output for Last 24 Hours 09/22/18 09/23/18 09/24/18 23:59 23:59 23:59 Intake Total 240 / 240 Balance 240 / 240 General: Healthy Appearing, Awake, Alert, Oriented x 3, No Acute Distress HEENT: Atraumatic, Normocephalic Oral: Moist Mucosa Neck: Supple, No JVD Lungs: Clear to auscultation Cardiovascular: Regular Rhythm, Normal S1, Normal S2 Abdomen: Bowel Sounds Present, Soft, Non Tender Extremities: No edema Neurological: No Focal Motor or Sensory Deficit Psych/Mental Status: Appropriate 09/23/18 11:45: WBC 7.7, RBC 4.08 L, Hgb 11.5 L, Hct 34.9 L, MCV 85.5, MCH 28.2, MCHC 33.0, RDW 13.4, RDW Differential 41.6, Plt Count 319, MPV 10.8, Immature Gran % (Auto) 0.100, Neut % (Auto) 74.8 H, Lymph % (Auto) 16.3 L, [place] % (Auto) 5.2, Eos % (Auto) 3.2, Baso % (Auto) 0.4, Absolute Neuts (auto) 5.8, Total Counted Not Reportable 09/23/18 11:45: Sodium 139, Potassium 3.8, Chloride 104, Carbon Dioxide 27.0, Anion Gap 8, BUN 8, Creatinine 0.86, Est GFR (MDRD) Af Amer 89, Est GFR (MDRD) Non-Af 74, BUN/Creatinine Ratio 9.3 L, Glucose 255 H, Calcium 9.2, Troponin I 2.570 H* 09/23/18 14:34: Troponin I 2.380 H* 09/23/18 17:50: Troponin I 2.240 H* Rhythm: Normal sinus rhythm EKG: EKG shows T wave changes in anterior leads that are similar to the ones on previous EKG. ECHO: Stress Test: Cardiac Cath: PCI: CT Surgery: Holter monitor: EPS: PPM: CXR: Chest CT Scan: Assessment/Plan 1. Chest pain. Patient clearly identifies it as different than her anginal/coronary symptoms. Presently pain-free. Troponins trending down from her recent non-ST elevation myocardial infarction. Doubt acute coronary syndrome. Continue present medications. No further investigation. For the possibility that she may have had some vasospasm, start on Imdur 30 mg once daily. 2. Counseled regarding the portance of compliance with medications. 3. Hypertension. Continue current medications. Add Imdur. Titrate medications as needed. 4. Dyslipidemia. Follow-up as outpatient with Dr. Jean Baptiste in 1-2 weeks time.
--- NOTE | 2018-09-24 11:43 | DCINST_ITS ---
- Discharge Diagnoses Current Active Problems: Current Active and Chronic Problems (Last Updated 09/23/18 @ 13:26 by Deepa Irizarry MD) Chest pain (Acute) You will use the following diet at home:: Calorie/Carbohydrate Controlled (specify 1200, 1400, etc) - 1800 jose., Cardiac Your food should be the consistency of: Regular Discharge Activity: Return to Normal Activity Weight Bearing Status: Full weight bearing Call your doctor if you observe: Fever of 101 or Higher, Shortness of breath, Dizziness, Fainting spells, Chest pain, Increased palpitations (irregular heartbeat), Uncontrolled pain Allergies/Adverse Reactions: Allergies oxycodone HCl [From OxyContin] Allergy (Verified 09/20/18 20:55) Rash Penicillins Allergy (Verified 09/20/18 20:55) Shortness of breath Medications to take at Discharge Acetaminophen [Tylenol Tablet] 650 mg PO Q6H PRN PRN 09/20/18 Ascorbic Acid [Vitamin C] 500 mg PO BIDCM 09/20/18 Celluvisc 1 drop OP 4X/DAY 09/20/18 Gabapentin [Neurontin] 800 mg PO TIDCM 09/20/18 Insulin Aspart [Novolog Flexpen] 20 units SC TIDCM 09/20/18 Insulin Glargine [Lantus SoloStar Pen] 30 units SC 0800 09/20/18 Ropinirole HCl [Requip] 3 mg PO BID 09/20/18 Clopidogrel Bisulfate [Plavix] 75 mg PO DAILY #30 tab 09/22/18 Aspirin E.C. [Ecotrin] 81 mg PO DAILY 09/23/18 Atorvastatin Calcium [Lipitor] 80 mg PO QHS 09/23/18 Lisinopril [Zestril] 5 mg PO DAILY 09/23/18 Metoprolol Tartrate [Lopressor (beta kunal)] 12.5 mg PO BID 09/23/18 Omeprazole [Prilosec] 20 mg PO DAILY 09/23/18 Rosuvastatin Calcium [Crestor] 40 mg PO QHS 09/23/18 Isosorbide Mononitrate [Imdur] 30 mg PO DAILY #30 tablet 09/24/18 The following prescriptions were given: Isosorbide Mononitrate [Imdur] 30 mg PO DAILY #30 tablet Primary Care Physician: Raúl Eric MD [Primary Care Provider] - Please follow up with your Primary Care Physician in: 1 week. Test Results: Test results from this visit will be discussed in further detail at your follow- up appointment, if applicable. Please Follow Up With: Saravanan Jean Baptiste MD When: 2 weeks.
--- NOTE | 2018-09-24 13:36 | PCM.DC.SUM ---
Discharge Date and Diagnosis Date of Admission: 09/23/18 Date of Discharge: 09/24/18 - Primary Discharge Diagnosis Chest pain in context of recent history of acute non-ST elevation [place] status post PCI/DARA to mid and proximal LAD, acute or new coronary syndrome ruled out, could be due to coronary vasospasm. - Secondary Discharge Diagnosis Chronic Problems (Last Updated 09/23/18 @ 13:26 by Deepa Irizarry MD) HLD (hyperlipidemia) (Chronic) Neuropathic pain (Chronic) GERD (gastroesophageal reflux disease) (Chronic) Hypomagnesemia (Chronic) Back pain, chronic (Chronic) Depression (Chronic) Diabetic foot ulcer associated with type 2 diabetes mellitus (Chronic) RLS (restless legs syndrome) (Chronic) Type II diabetes mellitus, uncontrolled (Chronic) Anxiety state (Chronic) Hospital Course and Treatment Imaging Results: Clinical Impression(s) from Imaging Studies Chest X-Ray 09/23/18 11:55 Consultations 09/23/18 15:16 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 Da Silva, cardiology. Operations: None, - Procedures: EKG Summary of Care Provided: Patient seen and examined on the day of discharge and appeared to be stable to be discharged home. She denied any more chest pain. She denied any associated symptoms such as shortness of breath, dizziness, palpitation, nausea, sweating, syncope or presyncope. Her vital signs are stable. The patient is a 53 year old F presented to the emergency room because of chest pain and she was admitted for observation. The day before admission, patient had acute ST elevation GA, underwent cardiac catheterization and she had PCI/DARA to mid and proximal LAD. During this admission, EKG performed and repeated this morning and both revealed no evidence of acute ischemic changes. Her troponin was elevated but was trending down from 2 days ago when she was admitted for acute ST elevation GA. Overnight, repeat troponin was trending down. Today, patient has no more chest pain. Her vital signs remained stable. Cardiology consulted and recommended start patient on isosorbide mononitrate daily for possible coronary vasospasm. Today, patient felt better, no more pain. Her vital signs remained stable. Routine blood work was unremarkable. Patient was discharged home in a stable medical condition, discharged on her medications including aspirin, Plavix, statins, beta-blockers and MYLA inhibitors, started on isosorbide mononitrate, recommended follow-up with PCP in 1 week and follow-up with cardiology in 2 weeks. - Physical Exam General: Alert, Oriented x3, Cooperative, No apparent distress HEENT: Atraumatic, PERRLA, EOMI, Normocephalic Oral: Moist Mucosa, No Gingival or Mucosal Lesions/ Ulcerations Neck: Supple, No JVD, Negative Carotid Bruits, Trachea Midline, Thyroid Normal Size and Texture Lungs: Clear to auscultation, No rhonchi, No wheeze, No rales Cardiovascular: Regular rate, Regular Rhythm, Normal S1, Normal S2 Abdomen: Bowel Sounds Present, Soft, Non Tender, Non-Distended, No Hepato-splenomegaly Extremities: No clubbing, No cyanosis, No edema Skin: No rashes Lymphatic: No Cervical, Supraclavicular, or Inguinal Adenopathy Neurological: Cranial nerves II-XII grossly intact, Neuro grossly intact Psych/Mental Status: Normal Affect, Appropriate Vital Signs Temp Pulse Resp BP Pulse Ox 98.1 F 91 14 153/88 H 97 09/24/18 09:05 09/24/18 11:00 09/24/18 09:05 09/24/18 09:05 09/24/18 09:05 Oxygen Delivery Method Room Air Weight: 183 lb 4.8 oz Body Mass Index (BMI) 29.5 Finger Stick Blood Glucose 227 Intake and Output for Last 24 Hours 09/22/18 09/23/18 09/24/18 23:59 23:59 23:59 Intake Total 240 / 240 500 / 500 Balance 240 / 240 500 / 500 Laboratory Tests Past 24 Hrs 09/23/18 09/23/18 14:34 17:50 Troponin I 2.380 H* 2.240 H* POC Glucose 09/24/18 09/24/18 09/24/18 11:07 07:31 04:43 POC Glucose 391 H 298 H 280 H 09/23/18 21:20 POC Glucose 318 H Discharge Activity: Return to Normal Activity Weight Bearing Status: Full weight bearing Call your doctor if you observe: Fever of 101 or Higher, Shortness of breath, Dizziness, Fainting spells, Chest pain, Increased palpitations (irregular heartbeat), Uncontrolled pain Home Medications: Medications to take at Discharge Acetaminophen [Tylenol Tablet] 650 mg PO Q6H PRN PRN 09/20/18 Ascorbic Acid [Vitamin C] 500 mg PO BIDCM 09/20/18 Celluvisc 1 drop OP 4X/DAY 09/20/18 Gabapentin [Neurontin] 800 mg PO TIDCM 09/20/18 Insulin Aspart [Novolog Flexpen] 20 units SC TIDCM 09/20/18 Insulin Glargine [Lantus SoloStar Pen] 30 units SC 0800 09/20/18 Ropinirole HCl [Requip] 3 mg PO BID 09/20/18 Clopidogrel Bisulfate [Plavix] 75 mg PO DAILY #30 tab 09/22/18 Aspirin E.C. [Ecotrin] 81 mg PO DAILY 09/23/18 Atorvastatin Calcium [Lipitor] 80 mg PO QHS 09/23/18 Lisinopril [Zestril] 5 mg PO DAILY 09/23/18 Metoprolol Tartrate [Lopressor (beta kunal)] 12.5 mg PO BID 09/23/18 Omeprazole [Prilosec] 20 mg PO DAILY 09/23/18 Rosuvastatin Calcium [Crestor] 40 mg PO QHS 09/23/18 Isosorbide Mononitrate [Imdur] 30 mg PO DAILY #30 tablet 09/24/18 Following Prescrptions Were Given to Patient: Isosorbide Mononitrate [Imdur] 30 mg PO DAILY #30 tablet Primary Care Physician: Raúl Eric MD [Primary Care Provider] - Please follow up with your Primary Care Physician in: 1 week. Please Follow Up With: Saravanan Jean Baptiste MD When: 2 weeks. Disposition: Home Minutes spent on discharge:: 24 Patient Condition:: Stable Medical Necessity - Tobacco Use Smoking Status: Never smoker Meaningful Use Info Meaningful Use Diagnoses (Choose all that apply): None applicable Code Visit OBSV E&M: 99889 Observation care discharge
--- NOTE | 2018-09-24 13:41 | DS.PCM_ITS ---
Discharge Date and Diagnosis Date of Admission: 09/23/18 Date of Discharge: 09/24/18 - Primary Discharge Diagnosis Chest pain in context of recent history of acute non-ST elevation [place] status post PCI/DARA to mid and proximal LAD, acute or new coronary syndrome ruled out, could be due to coronary vasospasm. - Secondary Discharge Diagnosis Chronic Problems (Last Updated 09/23/18 @ 13:26 by Deepa Irizarry MD) HLD (hyperlipidemia) (Chronic) Neuropathic pain (Chronic) GERD (gastroesophageal reflux disease) (Chronic) Hypomagnesemia (Chronic) Back pain, chronic (Chronic) Depression (Chronic) Diabetic foot ulcer associated with type 2 diabetes mellitus (Chronic) RLS (restless legs syndrome) (Chronic) Type II diabetes mellitus, uncontrolled (Chronic) Anxiety state (Chronic) Hospital Course and Treatment Imaging Results: Clinical Impression(s) from Imaging Studies Chest X-Ray 09/23/18 11:55 Consultations 09/23/18 15:16 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 Da Silva, cardiology. Operations: None, - Procedures: EKG Summary of Care Provided: Patient seen and examined on the day of discharge and appeared to be stable to be discharged home. She denied any more chest pain. She denied any associated symptoms such as shortness of breath, dizziness, palpitation, nausea, sweating, syncope or presyncope. Her vital signs are stable. The patient is a 53 year old F presented to the emergency room because of chest pain and she was admitted for observation. The day before admission, patient had acute ST elevation SD, underwent cardiac catheterization and she had PCI/DARA to mid and proximal LAD. During this admission, EKG performed and repeated this morning and both revealed no evidence of acute ischemic changes. Her troponin was elevated but was trending down from 2 days ago when she was admitted for acute ST elevation SD. Overnight, repeat troponin was trending down. Today, patient has no more chest pain. Her vital signs remained stable. Cardiology consulted and recommended start patient on isosorbide mononitrate daily for possible coronary vasospasm. Today, patient felt better, no more pain. Her vital signs remained stable. Routine blood work was unremarkable. Patient was discharged home in a stable medical condition, discharged on her medications including aspirin, Plavix, statins, beta-blockers and MYLA inhibitors, started on isosorbide mononitrate, recommended follow-up with PCP in 1 week and follow-up with cardiology in 2 weeks. - Physical Exam General: Alert, Oriented x3, Cooperative, No apparent distress HEENT: Atraumatic, PERRLA, EOMI, Normocephalic Oral: Moist Mucosa, No Gingival or Mucosal Lesions/ Ulcerations Neck: Supple, No JVD, Negative Carotid Bruits, Trachea Midline, Thyroid Normal Size and Texture Lungs: Clear to auscultation, No rhonchi, No wheeze, No rales Cardiovascular: Regular rate, Regular Rhythm, Normal S1, Normal S2 Abdomen: Bowel Sounds Present, Soft, Non Tender, Non-Distended, No Hepato- splenomegaly Extremities: No clubbing, No cyanosis, No edema Skin: No rashes Lymphatic: No Cervical, Supraclavicular, or Inguinal Adenopathy Neurological: Cranial nerves II-XII grossly intact, Neuro grossly intact Psych/Mental Status: Normal Affect, Appropriate Vital Signs Temp Pulse Resp BP Pulse Ox 98.1 F 91 14 153/88 H 97 09/24/18 09:05 09/24/18 11:00 09/24/18 09:05 09/24/18 09:05 09/24/18 09:05 Oxygen Delivery Method Room Air Weight: 183 lb 4.8 oz Body Mass Index (BMI) 29.5 Finger Stick Blood Glucose 227 Intake and Output for Last 24 Hours 09/22/18 09/23/18 09/24/18 23:59 23:59 23:59 Intake Total 240 / 240 500 / 500 Balance 240 / 240 500 / 500 Laboratory Tests Past 24 Hrs 09/23/18 09/23/18 14:34 17:50 Troponin I 2.380 H* 2.240 H* POC Glucose 09/24/18 09/24/18 09/24/18 11:07 07:31 04:43 POC Glucose 391 H 298 H 280 H 09/23/18 21:20 POC Glucose 318 H Discharge Activity: Return to Normal Activity Weight Bearing Status: Full weight bearing Call your doctor if you observe: Fever of 101 or Higher, Shortness of breath, Dizziness, Fainting spells, Chest pain, Increased palpitations (irregular heartbeat), Uncontrolled pain Home Medications: Medications to take at Discharge Acetaminophen [Tylenol Tablet] 650 mg PO Q6H PRN PRN 09/20/18 Ascorbic Acid [Vitamin C] 500 mg PO BIDCM 09/20/18 Celluvisc 1 drop OP 4X/DAY 09/20/18 Gabapentin [Neurontin] 800 mg PO TIDCM 09/20/18 Insulin Aspart [Novolog Flexpen] 20 units SC TIDCM 09/20/18 Insulin Glargine [Lantus SoloStar Pen] 30 units SC 0800 09/20/18 Ropinirole HCl [Requip] 3 mg PO BID 09/20/18 Clopidogrel Bisulfate [Plavix] 75 mg PO DAILY #30 tab 09/22/18 Aspirin E.C. [Ecotrin] 81 mg PO DAILY 09/23/18 Atorvastatin Calcium [Lipitor] 80 mg PO QHS 09/23/18 Lisinopril [Zestril] 5 mg PO DAILY 09/23/18 Metoprolol Tartrate [Lopressor (beta kunal)] 12.5 mg PO BID 09/23/18 Omeprazole [Prilosec] 20 mg PO DAILY 09/23/18 Rosuvastatin Calcium [Crestor] 40 mg PO QHS 09/23/18 Isosorbide Mononitrate [Imdur] 30 mg PO DAILY #30 tablet 09/24/18 Following Prescrptions Were Given to Patient: Isosorbide Mononitrate [Imdur] 30 mg PO DAILY #30 tablet Primary Care Physician: Raúl Eric MD [Primary Care Provider] - Please follow up with your Primary Care Physician in: 1 week. Please Follow Up With: Saravanan Jean Baptiste MD When: 2 weeks. Disposition: Home Minutes spent on discharge:: 24 Patient Condition:: Stable Medical Necessity - Tobacco Use Smoking Status: Never smoker Meaningful Use Info Meaningful Use Diagnoses (Choose all that apply): None applicable Code Visit OBSV E&M: 78190 Observation care discharge
--- OUTSIDE RECORDS SUMMARY | 2018-12-27 10:59 | XMS RPT_ITS ---
:1965 Author Organization OHIP Support Name Relationship Address Phone D Unavailable Unavailable Unavailable ZICKEFOOSE, MARIXA Unavailable Unavailable + [place] [address] D Unavailable Unavailable Unavailable ZICKEFOOSE, MARIXA Unavailable . + [place] [address] D Unavailable Unavailable Unavailable ZICKEFOOSE, MARIXA Unavailable Unavailable + [place] [address] D Unavailable Unavailable Unavailable ZICKEFOOSE, MARIXA Unavailable Unavailable + [place] [address] D Unavailable Unavailable Unavailable ZICKEFOOSE, MARIXA Unavailable Unavailable + [place] [address] D Unavailable Unavailable Unavailable ZICKEFOOSE, MARIXA Unavailable Unavailable + [place] [address] D Unavailable Unavailable Unavailable ZICKEFOOSE, MARIXA Unavailable Unavailable + [place] [address] D Unavailable Unavailable Unavailable ZICKEFOOSE, MARIXA Unavailable Unavailable + [place] [address] D Unavailable Unavailable Unavailable ZICKEFOOSE, MARIXA Unavailable Unavailable + [place] [address] D Unavailable Unavailable Unavailable ZICKEFOOSE, MARIXA Unavailable [address] + [place] [address] D Unavailable Unavailable Unavailable ZICKEFOOSE, MARIXA Unavailable [address] + [place] [address] D Unavailable Unavailable Unavailable ZICKEFOOSE, MARIXA Unavailable [address] + [place] [address] D Unavailable Unavailable Unavailable ZICKEFOOSE, MARIXA Unavailable [address] + [place] [address] D Unavailable Unavailable Unavailable ZICKEFOOSE, MARIXA Unavailable [address] + [place] [address] D Unavailable Unavailable Unavailable ZICKEFOOSE, MARIXA Unavailable [address] + [place] [address] D Unavailable Unavailable Unavailable ZICKEFOOSE, MARIXA Unavailable [address] + [place] [address] D Unavailable Unavailable Unavailable ZICKEFOOSE, MARIXA Unavailable [address] + [place] [address] D Unavailable Unavailable Unavailable ZICKEFOOSE, MARIXA Unavailable [address] + [place] [address] D Unavailable Unavailable Unavailable ZICKEFOOSE, MARIXA Unavailable [address] + [place] [address] D Unavailable Unavailable Unavailable ZICKEFOOSE, MARIXA Unavailable [address] + [place] [address] D Unavailable Unavailable Unavailable ZICKEFOOSE, MARIXA Unavailable [address] + [place] [address] D Unavailable Unavailable Unavailable ZICKEFOOSE, MARIXA Unavailable [address] + [place] [address] D Unavailable Unavailable Unavailable D Unavailable Unavailable Unavailable ZICKEFOOSE, MARIXA Unavailable [address] + [place] [address] D Unavailable Unavailable Unavailable D Unavailable Unavailable Unavailable ZICKEFOOSE, MARIXA Unavailable Unavailable + [place] [address] KERA MANDUJANO Unavailable [address] [facility] + [place] [address] Care Team Providers Name Role Phone SENDY ALLEN Attending Unavailable TESTRAÁNGELA, SENDY Referring Unavailable TESTSENDY CUNNINGHAM Referring Unavailable TESTRAKE, SENDY Referring Unavailable TESTRAKE, SENDY Attending Unavailable TESTRAKE, SENDY Referring Unavailable TESTRAKE, SENDY Attending Unavailable TESTRAKE, SENDY Referring Unavailable TESTRAKE, SENDY Referring Unavailable HOWARD ANDREWS Attending Unavailable TESTRAKE, SENDY Referring Unavailable ELDERBROCKALESSANDRO Referring Unavailable TESTRAKE, SENDY Attending Unavailable TESTRAKE, SENDY Referring Unavailable TESTRAKE, SENDY Attending Unavailable TESTRAKE, SENDY Referring Unavailable TESS COLEMAN (RES) Admitting Unavailable HARPER THOMPSON Attending Unavailable INDIO MOURA Attending Unavailable INDIO MOURA Attending Unavailable TESS COLEMAN (RES) Referring Unavailable JUANJO TAVARES Attending Unavailable TESS COLEMAN (RES) Referring Unavailable TESTRAKE, SENDY Attending Unavailable TESTRAKE, SENDY Referring Unavailable TESTRAKE, SENDY Attending Unavailable TESTRAKE, SENDY Referring Unavailable TESTRAKE, SENDY Attending Unavailable TESTRAKE, SENDY Referring Unavailable TESTRAKE, SENDY Referring Unavailable ELDERBROCK, ALESSANDRO Tejada Attending Unavailable TESTRAKE, SENDY Attending Unavailable TESTRAKE, SENDY Referring Unavailable TESTRAKE, SENDY Attending Unavailable TESTRAKE, SENDY Referring Unavailable TESTRAKE, SENDY Attending Unavailable TESTRAKE, SENDY Referring Unavailable Dr. Sanna Riley Admitting Unavailable Rosemary, Dr. Isidro Attending Unavailable [facility] Unavailable Ashelfah, Ghasem Admitting Unavailable Ashelfah, Ghasem Attending Unavailable Avinash, Gagan Consulting Unavailable Ashelfah, Ghasem Admitting Unavailable Ashelfah, Ghasem Attending Unavailable [facility] Unavailable Ashelfah, Ghasem Consulting Unavailable Ashelfah, Ghasem Admitting Unavailable Avinash, Gagan Attending Unavailable [facility] Unavailable Avinash, Gagan Consulting Unavailable Ashelfah, Ghasem Consulting Unavailable Ashelfah, Ghasem Admitting Unavailable Ashelfah, Ghasem Attending Unavailable [facility] Unavailable Avinash, Gagan Consulting Unavailable Ashelfah, Ghasem Consulting Unavailable [facility] Unavailable Henna Lou Attending Unavailable Saravanan Jean Baptiste Attending Unavailable Gopi Bach Referring Unavailable Donovan Samuels Attending Unavailable Agyepong, Gopi Admitting Unavailable Jopperi, Kali Attending Unavailable Elderclarita, Alessandro Primary Care Unavailable Markel, Saravanan Consulting Unavailable Jopperi, Kali Consulting Unavailable Agyepong, Gopi Admitting Unavailable Jopperi, Kali Attending Unavailable Elderclarita, [place] Primary Care Unavailable Markel, Saravanan Consulting Unavailable Jopperi, Kali Consulting Unavailable Agyepong, Gopi Admitting Unavailable Agyepong, Gopi Attending Unavailable Elderclarita, [place] Primary Care Unavailable Markel, Sylvester Consulting Unavailable Jopperi, Kali Consulting Unavailable [facility], [place] [facility] Unavailable Agyepong, Gopi Admitting Unavailable Markel, Saravanan Consulting Unavailable Jopperi, Kali Attending Unavailable Markel, Saravanan Attending Unavailable Paintsil, [place] Referring Unavailable Markel, Sylvester Attending Unavailable [facility], Alessandro Referring Unavailable Agyepong, Gopi Admitting Unavailable Markel, Sylvester Attending Unavailable Elderclarita, [place] Primary Care Unavailable Markel, Saravanan Consulting Unavailable Jopperi, Kali Consulting Unavailable Mo, Chauncey Chi Admitting Unavailable Mo, Chauncey Chi Attending Unavailable Mo, Chauncey Chi Referring Unavailable [facility], [place] Primary Care Unavailable Testrake, Sendy Consulting Unavailable Testrake, Sendy Attending Unavailable Testrake, Sendy Referring Unavailable [facility], [place] Primary Care Unavailable Mo, Chauncey Chi Admitting Unavailable Mo, Chauncey Chi Attending Unavailable Mo, Chauncey Chi Referring Unavailable [facility], [place] Primary Care Unavailable [place], [place] Admitting Unavailable [place], [place] Referring Unavailable [facility], [place] Primary Care Unavailable Testrake, Sendy Consulting Unavailable Tereletsky, Alessandro Attending Unavailable Omer, Kike Consulting Unavailable Tereletsky, Alessandro Consulting Unavailable [place], [place] Admitting Unavailable [place], [place] Referring Unavailable [facility], [place] Primary Care Unavailable Testrake, Sendy Consulting Unavailable Tereletsky, Alessandro Attending Unavailable Omer, Kike Consulting Unavailable Tereletsky, Alessandro Consulting Unavailable [place], [place] Admitting Unavailable [place], [place] Referring Unavailable Elderclarita, [place] Primary Care Unavailable Testrake, Sendy Consulting Unavailable [place], [place] Attending Unavailable Omer, Kike Consulting Unavailable [place], [place] Consulting Unavailable Testrake, Sendy Attending Unavailable [facility], [place] Primary Care Unavailable [place], [place] Admitting Unavailable [place], [place] Referring Unavailable Alessanrdo Eric Primary Care Unavailable Sendy Allen Consulting Unavailable Alessandro Perez Attending Unavailable Kike Tello Consulting Unavailable Alessandro Eric Primary Care Unavailable Richie Hughes Attending Unavailable Alessandro Eric Primary Care Unavailable Harrison Tim Attending Unavailable PROBLEMS PROBLEMS DATE TYPE CONDITION / CODE ATTENDING STATUS SOURCE Unknown I21.4 - Non-ST elevation Markel, Sylvester Active [facility] (NSTEMI) myocardial Community infarction / Hospital I21.4(ICD-10) Repository Unknown E78.00 - Pure Markel, Sylvester Active [facility] hypercholesterolemia, Community unspecified / Hospital E78.00(ICD-10) Repository Unknown E78.0 - Pure Markel, Saravanan Active [facility] hypercholesterolemia / Community E78.0(ICD-10) Hospital Repository Unknown I10 - Essential (primary) Markel, Saravanan Active [facility] hypertension / Community I10(ICD-10) Hospital Repository Unknown Z95.5 - Presence of Joppkaran, Kali Active [facility] coronary angioplasty Community implant and graft / Hospital Z95.5(ICD-10) Repository Unknown 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, 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 / Repository I25.10(ICD-10) Unknown E78.5 - Hyperlipidemia, Jopperi, Kali Active [facility] unspecified / Community E78.5(ICD-10) Hospital Repository Unknown R53.81 - Other malaise / Mo, Chauncey Chi Active [facility] R53.81(ICD-10) Community Hospital Repository Unknown E11.621 - Type 2 diabetes Mo, Chauncey Chi Active [facility] mellitus with foot ulcer Community / E11.621(ICD-10) Hospital Repository Unknown L97.509 - Non-pressure Mo, Chauncey Chi Active [facility] chronic ulcer of other Community part of unspecified foot Hospital with unspecified severity Repository / L97.509(ICD-10) Active Type 2 diabetes mellitus HARPER THOMPSON Active [place] [facility] with diabetic neuropathic Clinic Main arthropathy / [place] E11.610(ICD-10) Repository Active Type 2 diabetes mellitus HARPER THOMPSON Active [place] [facility] with diabetic Clinic Main polyneuropathy / [place] E11.42(ICD-10) Repository Active Hyperlipidemia, HARPER THOMPSON Active [facility] [facility] unspecified / Clinic Main E78.5(ICD-10) [place] Repository Active Restless legs syndrome / HARPER THOMPSON Active [facility] [facility] G25.81(ICD-10) Clinic Main [place] Repository Active Type 2 diabetes mellitus HARPER THOMPSON Active [place] [facility] with diabetic neuropathy, Clinic Main unspecified / [place] E11.40(ICD-10) Repository Active Type 2 diabetes mellitus HARPER THOMPSON Active [place] [facility] with hyperglycemia / Clinic Main E11.65(ICD-10) [place] Repository Active Other visual disturbances HARPER THOMPSON Active [place] [facility] / H53.8(ICD-10) Clinic Main [place] Repository Active Other injury of HARPER THOMPSON Active [facility] [facility] unspecified body region, Clinic Main initial encounter / [place] T14.8XXA(ICD-10) Repository Active Local infection of the HARPER THOMPSON Active [facility] [facility] skin and subcutaneous Clinic Main tissue, unspecified / [place] L08.9(ICD-10) Repository Active Diarrhea, unspecified / HARPER THOMPSON Active [facility] [facility] R19.7(ICD-10) Clinic Main [place] Repository Unknown Z48.817 - Encounter for Mo, Chauncey Chi Active [facility] surgical aftercare Community following surgery on the Hospital skin and subcutaneous Repository tissue / Z48.817(ICD-10) Unknown R94.31 - Abnormal Markel, Saravanan Active [facility] electrocardiogram [ECG] Community [EKG] / R94.31(ICD-10) Hospital Repository Active Type 2 diabetes mellitus NA Active [place] [facility] with foot ulcer / Clinic Main E11.621(ICD-10) [place] Repository Active Non-pressure chronic NA Active [place] [facility] ulcer of left heel and Clinic Main midfoot with fat layer [place] exposed / L97.422(ICD-10) Repository Active Non-pressure chronic NA Active [place] [facility] ulcer of right heel and Clinic Main midfoot with fat layer [place] exposed / L97.412(ICD-10) Repository Unknown M79.671 - Pain in right Richie Hughes Active [facility] foot / M79.671(ICD-10) [facility] [place] Encounter for screening NA Active [place] [facility] for lipoid disorders / Clinic Main Z13.220(ICD-10) [place] Repository Active Vitamin D deficiency, NA Active [facility] [facility] unspecified / Clinic Main E55.9(ICD-10) [place] Repository Active Other specified abnormal NA Active [facility] [facility] findings of blood Clinic Main chemistry / [place] R79.89(ICD-10) Repository Active Pain in right ankle and NA Active [facility] [facility] joints of right foot / Clinic Main M25.571(ICD-10) [place] Repository Active Other chronic pain / NA Active [facility] [facility] G89.29(ICD-10) Clinic Main [place] Repository Unknown R42 - Dizziness and Fridrich, Active [facility] giddiness / R42(ICD-10) [facility] Rep[facility] Active Sprain of other ligament NA Active [place] [facility] of right ankle, initial Clinic Main encounter / [place] S93.491A(ICD-10) Repository Active Effusion, right ankle / NA Active [facility] [facility] M25.471(ICD-10) Clinic Main [place] Repository Active Primary osteoarthritis, NA Active [facility] [facility] unspecified ankle and Clinic Main foot / M19.079(ICD-10) [place] Repository Active Pain in right foot / NA Active [facility] [facility] M79.671(ICD-10) Clinic Main [place] Repository PROCEDURES PROCEDURES No Procedure Records FoundRESULTS RESULTS PROGRESS Observed: 10/31/2018 Status: COMPLETED Source: [facility] 4:05 PM [facility] REPOSITORY HNO ID: [id number] Author: Sendy Allen Service: (none) Author Type: Physician Type: Progress Notes Filed: 10/31/2018 4:20 PM Note Text: Follow up podiatric office visit for: Chief Complaint: This 53 year old who presents for follow up:left foot ulceration. Patient had epifix applied to her left foot last week. She was issued boot several appointments ago and has wheel chair and crutches. Unfortunately, patient presents early this week because there is large amounts of dry blood on her left foot. Patient states that she was forced to walk on her foot without crutches or wheel chair the other day when going to the store. She states her son would not allow her to use her crutches. As a result, she states her ulceration is larger. She denies any n/v/f/c. Patient does complain of pain to right ankle. She has afo orderd by Dr. Andrews. She received but claims that it needs modified. She states that she called to have it modified but has not heard back. PAIN EVALUATION No data found. Hemoglobin A1C Date Value Ref Range Status 08/30/2018 11.7 (H) 4.3 - 5.6 % Final Comment: [place] [employer] guidelines indicate that patients with [...] Fallen arches (Broken) on both sides - History of heart attack 09/20/2018 - NSTEMI (non-ST elevated myocardial infarction) (HCC) 09/2018 - Polyneuropathy in diabetes(357.2) - Restless legs syndrome (RLS) Current Outpatient Prescriptions: lisinopril (ZESTRIL, PRINIVIL) 5 mg tablet Take 1 tablet by mouth once daily. atorvastatin (LIPITOR) 80 mg tablet Take 1 tablet by mouth once daily. clopidogrel (PLAVIX) 75 mg tablet Take 1 tablet by mouth once daily. promethazine (PHENERGAN) 25 mg tablet EVERY 6 HOURS NEEDED PRN For NAUSEA/VOMITING escitalopram oxalate (LEXAPRO) 10 mg tablet DAILY isosorbide mononitrate ER (IMDUR) 30 mg 24 hr tablet DAILY metoprolol tartrate, short acting, (LOPRESSOR) 25 mg tablet Take 12.5 mg by mouth twice daily. insulin detemir U-100 (LEVEMIR FLEXPEN) 100 unit/mL (3 mL) inpn injection Inject 30 units subcutaneously daily at breakfast rOPINIRole Hydrochloride 3 mg tablet Take 1 tablet by mouth twice daily. blood sugar diagnostic (CONTOUR NEXT TEST STRIPS) test strip Use as instructed. Tests blood sugars 3 to 4 times a day. E10.65; Insulin: yes. docusate sodium (COLACE) 100 mg capsule Take 1 capsule by mouth twice daily as needed for Constipation. insulin aspart U-100 (NOVOLOG FLEXPEN U-100 INSULIN) 100 unit/mL inpn Inject 20 Units subcutaneously three times daily with meals. simethicone, chewable (MYLICON) 80 mg chewable tablet Take 1 tablet by mouth four times daily as needed (GI upset). promethazine (PHENERGAN) 25 mg tablet Take 1 tablet by mouth every 6 hours as needed. Blood-Glucose Meter (ACCU-CHEK MEGAN CONNECT METER) misc 1 Units as directed. Dx: E11.40 magnesium oxide (MAG-OX) 400 mg tablet Take 1 tablet by mouth twice daily. insulin needles, DISPOSABLE, (PEN NEEDLE) 31 gauge x 5/16 ndle Use as directed four times daily ascorbic acid, vitamin C, (VITAMIN C) 500 [...] Lancets lancets Test 2-3 times a day lactobacillus rhamnosus (CULTURELLE) 10 billion cell capsule Take 1 capsule by mouth once daily for 7 days. oxyCODONE IR (ROXICODONE) 5 mg immediate release tablet Take 1 tablet by mouth every 8 hours as needed. gabapentin (NEURONTIN) 800 mg tablet Take 1 [...] HISTORY OF removal right 5th metatarsal - PAST SURGICAL HISTORY OF 09/21/2018 cardiac stent x 2 - PAST SURGICAL HISTORY OF N/A 09/2018 Heart Cath with stent placement - PICC LINE INSERT/CONSULT 06/14/2014 - REPAIR [...] peripheral weakness/paresthesias or numbness of concern. MUSC-SKEL: Right ankle pain PSY: No concerns regarding depression, anxiety or panic. INTEGUMENTARY: Ulceration of left foot Physical Exam: Constitutional: Pt is a well developed 53 year old female who is alert, oriented, cooperative and in no apparent distress. OBJECTIVE: NVSI unchanged from previous visit. Dermatological: Large ulceration to left foot that is larger today than last week. There is ulceration with vinicius-wound hyperkeratosis. Ulceration measures 2.0 cm x 1.6 cm. There is no drainage or local signs of infection. There is no exposed tendon or bone. 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 Plantarflexion, dorsiflexion, inversion and eversion is 5/5 ASSESSMENT: (E11.621, L97.422) Diabetic ulcer of left midfoot associated with type 2 diabetes mellitus, with fat layer exposed ([facility]) (primary encounter diagnosis) (E11.42) Diabetic polyneuropathy associated with type 2 diabetes mellitus ([facility]) (Z91.19) Noncompliance PLAN: Discussed ulceration of left foot. I am very disappointed with patient because she is not following direction. She claims that her son would not allow her to use her crutches and she subsequently had to place weight on her foot. I had long discussion with patient regarding her behavior. If she does not follow direction, she is just wasting her time and likely going to end up losing her foot. I informed patient of mortality rate in diabetic patients with lower leg amputation. She needs to start being compliant and take ownership of her foot otherwise, she is going to be at risk of amputation. Today, debridement of ulceration with tissue nippers was performed thru dermis, epidermis, subcutaneous tissue. Ulceration is larger today. Last week we applied epifix but the ulceration is now larger. I informed her that I am going to hold on graft today because she is obviously not following my recommendations. She is just wasting the graft if she continues to walk on this foot. I am going to recommend vanessa daily. She will continue with boot. I am going to have her come in as scheduled on . I discussed casting. I feel it is time we try cast. We have discussed casting in past but felt that due to drainage, it could be difficult for casting. I feel at this time, there is no alternatives because she is not following direction. I am going to recommend cast. If she walks on cast, she will be at risk of major complications. Callus filed to right foot as courtesy. She does have right ankle pain. She has afo ordered and she received but she needed modified. She states she has not heard back from [facility]. Of note, I called [facility]. Patient had 2 hour appointment yesterday but did not show up for her appointment. This behavior appears to be consistent with Diony. She is at risk of major amputation if she does not take responsibility of her health. Sendy Allen DPM PROGRESS Observed: 10/31/2018 Status: COMPLETED Source: [facility] 4:02 PM [facility] REPOSITORY HNO ID: [id number] Author: Cecy Carbajal RN Service: (none) Author Type: (none) Type: Progress Notes Filed: 10/31/2018 4:20 PM Note Text: Vanessa applied to ulceration of L plantar foot. Covered with 4x4 and secured with alison and BRANDO. PROGRESS Observed: 10/31/2018 Status: COMPLETED Source: [facility] 2:44 PM [facility] REPOSITORY HNO ID: [id number] Author: Cecy Carbajal RN Service: (none) Author Type: (none) Type: Progress Notes Filed: 10/31/2018 4:20 PM Note Text: AMB ROOMING INTAKE FLOWSHEET DATA Risk Screening Do you have concerns about personal safety or safety in the home?: No Patient is here to follow up on ulcer of L foot. She had Epifix applied at her [facility] on 10/20/18 and cancelled her follow up on 10/26/18. She feels that ulcer is looking worse because she recently went to the store with her son and left her crutches at home. She did a lot of walking around in the store and feels that as a result her ulcer got worse. Denies n/v/f/c. CNOV Observed: 10/31/2018 Status: COMPLETED Source: [facility] 2:40 PM [facility] REPOSITORY Office Visit (PODIWS) DIONY CARRILLO ([id number]) 1965 F Date Time Provider Department 10/31/18 2:40 PM SENDY ALLEN PODIWS During your visit today, we recorded the following information about you: Cecy Carbajal RN 10/31/2018 4:20 PM Signed AMB ROOMING INTAKE FLOWSHEET DATA Risk Screening Do you have concerns about personal safety or safety in the home?: No Patient is here to follow up on ulcer of L foot. She had Epifix applied at her [facility] on 10/20/18 and cancelled her follow up on 10/26/18. She feels that ulcer is looking worse because she recently went to the store with her son and left her crutches at home. She did a lot of walking around in the store and feels that as a result her ulcer got worse. Denies n/v/f/c. Cecy Carbajal RN 10/31/2018 3:28 PM Signed Apply Vanessa every day to wound on L foot. Cover with 4x4 and alison. Follow up on for Total Contact Cast. Cecy Carbajal RN 10/31/2018 4:20 PM Signed Vanessa applied to ulceration of L plantar foot. Covered with 4x4 and secured with alison and BRANDO. Sendy Allen DPM 10/31/2018 4:20 PM Signed Follow up podiatric office visit for: Chief Complaint: This 53 year old who presents for follow up:left foot ulceration. Patient had epifix applied to her left foot last week. She was issued boot several appointments ago and has wheel chair and crutches. Unfortunately, patient presents early this week because there is large amounts of dry blood on her left foot. Patient states that she was forced to walk on her foot without crutches or wheel chair the other day when going to the store. She states her son would not allow her to use her crutches. As a result, she states her ulceration is larger. She denies any n/v/f/c. Patient does complain of pain to right ankle. She has afo orderd by Dr. Andrews. She received but claims that it needs modified. She states that she called to have it modified but has not heard back. PAIN EVALUATION No data found. Hemoglobin A1C Date Value Ref Range Status 08/30/2018 11.7 (H) 4.3 - 5.6 % Final Comment: [place] [employer] guidelines indicate that patients with [...] Fallen arches (Broken) on both sides - History of heart attack 09/20/2018 - NSTEMI (non-ST elevated myocardial infarction) (HCC) 09/2018 - Polyneuropathy in diabetes(357.2) - Restless legs syndrome (RLS) Current Outpatient Prescriptions: lisinopril (ZESTRIL, PRINIVIL) 5 mg tablet Take 1 tablet by mouth once daily. atorvastatin (LIPITOR) 80 mg tablet Take 1 tablet by mouth once daily. clopidogrel (PLAVIX) 75 mg tablet Take 1 tablet by mouth once daily. promethazine (PHENERGAN) 25 mg tablet EVERY 6 HOURS NEEDED PRN For NAUSEA/VOMITING escitalopram oxalate (LEXAPRO) 10 mg tablet DAILY isosorbide mononitrate ER (IMDUR) 30 mg 24 hr tablet DAILY metoprolol tartrate, short acting, (LOPRESSOR) 25 mg tablet Take 12.5 mg by mouth twice daily. insulin detemir U-100 (LEVEMIR FLEXPEN) 100 unit/mL (3 mL) inpn injection Inject 30 units subcutaneously daily at breakfast rOPINIRole Hydrochloride 3 mg tablet Take 1 tablet by mouth twice daily. blood sugar diagnostic (CONTOUR NEXT TEST STRIPS) test strip Use as instructed. Tests blood sugars 3 to 4 times a day. E10.65; Insulin: yes. docusate sodium (COLACE) 100 mg capsule Take 1 capsule by mouth twice daily as needed for Constipation. insulin aspart U-100 (NOVOLOG FLEXPEN U-100 INSULIN) 100 unit/mL inpn Inject 20 Units subcutaneously three times daily with meals. simethicone, chewable (MYLICON) 80 mg chewable tablet Take 1 tablet by mouth four times daily as needed (GI upset). promethazine (PHENERGAN) 25 mg tablet Take 1 tablet by mouth every 6 hours as needed. Blood-Glucose Meter (ACCU-CHEK MEGAN CONNECT METER) misc 1 Units as directed. Dx: E11.40 magnesium oxide (MAG-OX) 400 mg tablet Take 1 tablet by mouth twice daily. insulin needles, DISPOSABLE, (PEN NEEDLE) 31 gauge x 5/16 ndle Use as directed four times daily ascorbic acid, vitamin C, (VITAMIN C) 500 [...] Lancets lancets Test 2-3 times a day lactobacillus rhamnosus (CULTURELLE) 10 billion cell capsule Take 1 capsule by mouth once daily for 7 days. oxyCODONE IR (ROXICODONE) 5 mg immediate release tablet Take 1 tablet by mouth every 8 hours as needed. gabapentin (NEURONTIN) 800 mg tablet Take 1 [...] HISTORY OF removal right 5th metatarsal - PAST SURGICAL HISTORY OF 09/21/2018 cardiac stent x 2 - PAST SURGICAL HISTORY OF N/A 09/2018 Heart Cath with stent placement - PICC LINE INSERT/CONSULT 06/14/2014 - REPAIR [...] peripheral weakness/paresthesias or numbness of concern. MUSC-SKEL: Right ankle pain PSY: No concerns regarding depression, anxiety or panic. INTEGUMENTARY: Ulceration of left foot Physical Exam: Constitutional: Pt is a well developed 53 year old female who is alert, oriented, cooperative and in no apparent distress. OBJECTIVE: NVSI unchanged from previous visit. Dermatological: Large ulceration to left foot that is larger today than last week. There is ulceration with vinicius-wound hyperkeratosis. Ulceration measures 2.0 cm x 1.6 cm. There is no drainage or local signs of infection. There is no exposed tendon or bone. 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 Plantarflexion, dorsiflexion, inversion and eversion is 5/5 ASSESSMENT: (E11.621, L97.422) Diabetic ulcer of left midfoot associated with type 2 diabetes mellitus, with fat layer exposed ([facility]) (primary encounter diagnosis) (E11.42) Diabetic polyneuropathy associated with type 2 diabetes mellitus ([facility]) (Z91.19) Noncompliance PLAN: Discussed ulceration of left foot. I am very disappointed with patient because she is not following direction. She claims that her son would not allow her to use her crutches and she subsequently had to place weight on her foot. I had long discussion with patient regarding her behavior. If she does not follow direction, she is just wasting her time and likely going to end up losing her foot. I informed patient of mortality rate in diabetic patients with lower leg amputation. She needs to start being compliant and take ownership of her foot otherwise, she is going to be at risk of amputation. Today, debridement of ulceration with tissue nippers was performed thru dermis, epidermis, subcutaneous tissue. Ulceration is larger today. Last week we applied epifix but the ulceration is now larger. I informed her that I am going to hold on graft today because she is obviously not following my recommendations. She is just wasting the graft if she continues to walk on this foot. I am going to recommend vanessa daily. She will continue with boot. I am going to have her come in as scheduled on . I discussed casting. I feel it is time we try cast. We have discussed casting in past but felt that due to drainage, it could be difficult for casting. I feel at this time, there is no alternatives because she is not following direction. I am going to recommend cast. If she walks on cast, she will be at risk of major complications. Callus filed to right foot as courtesy. She does have right ankle pain. She has afo ordered and she received but she needed modified. She states she has not heard back from [facility]. Of note, I called [facility]. Patient had 2 hour appointment yesterday but did not show up for her appointment. This behavior appears to be consistent with Diony. She is at risk of major amputation if she does not take responsibility of her health. Sendy Allen DPM Referring Provider: SENDY ALLEN [[id number]] Allergies As of Date: 10/31/2018 Noted Allergy Reaction OXYCONTIN (OXYCODONE HCL) 09/27/2007 Comments: itch PENICILLINS 06/02/2007 4 - Hives REQUIP (ROPINIROLE) 11/18/2015 5 - Intolerance Comments: Vomiting, panic attacks, itching Date Reviewed: 10/31/2018 Reviewed by: Cecy Carbajal RN - Fully Assessed Reason for Visit: Follow Up [171] Primary Visit Diagnosis:Diabetic ulcer of left midfoot associated with type 2 diabetes mellitus, with fat layer exposed (HCC) [E11.621, L97.422] Other Visit Diagnoses:Diabetic polyneuropathy associated with type 2 diabetes mellitus ([facility]) [E11.42] Noncompliance [Z91.19] Prescriptions as of 10/31/2018 Sig: LISINOPRIL 5 MG TABLET Take 1 tablet by mouth once d* ATORVASTATIN 80 MG TABLET Take 1 tablet by mouth once d* CLOPIDOGREL 75 MG TABLET Take 1 tablet by mouth once d* PROMETHAZINE 25 MG TABLET EVERY 6 HOURS NEEDED PRN F* ESCITALOPRAM 10 MG TABLET DAILY ISOSORBIDE MONONITRATE ER 30 * DAILY METOPROLOL TARTRATE 25 MG TAB* Take 12.5 mg by mouth twice d* INSULIN DETEMIR (U-100) 100 U* Inject 30 units subcutaneousl* ROPINIROLE 3 MG TABLET Take 1 tablet by mouth twice * BLOOD SUGAR DIAGNOSTIC STRIPS Use as instructed. Tests bloo* DOCUSATE SODIUM 100 MG CAPSULE Take 1 capsule by mouth twice* INSULIN ASPART U-100 100 UNI* Inject 20 Units subcutaneousl* SIMETHICONE 80 MG CHEWABLE TA* Take 1 tablet by mouth four t* PROMETHAZINE 25 MG TABLET Take 1 tablet by mouth every * BLOOD-GLUCOSE METER 1 Units as directed. Dx: E11.* MAGNESIUM OXIDE 400 MG (241.3* Take 1 tablet by mouth twice * PEN NEEDLE, DIABETIC 31 GAUGE* Use as directed four times da* ASCORBIC ACID (VITAMIN C) 500* Take 1 tablet by mouth twice * BLOOD SUGAR DIAGNOSTIC STRIPS Test blood sugar(s) 3- 4 times* BLOOD SUGAR DIAGNOSTIC STRIPS Check blood sugar readings 2-* LANCETS Check blood sugar readings 2-* BLOOD-GLUCOSE METER KIT 1 Each as needed. LANCETS Test 2-3 times a day LACTOBACILLUS RHAMNOSUS GG 10* Take 1 capsule by mouth once * OXYCODONE 5 MG TABLET Take 1 tablet by mouth every * GABAPENTIN 800 MG TABLET Take 1 tablet by mouth three * Problem List As Of Date 10/31/2018 Noted Resolved Reaction, adjustment, with depressed mood, [...] INVALID FOR* Other instructions from your clinician: Apply Vanessa every day to wound on L foot. Cover with 4x4 and alison. Follow up on for Total Contact Cast. Encounter Status:Closed by SENDY ALLEN DPM on 10/31/18 OBSOLETE Observed: 10/30/2018 Status: COMPLETED Source: [facility] 12:00 AM [facility] REPOSITORY Refill (FAMDenyWS) DIONY CARRILLO ([id number]) 1965 F Date Time Provider Department 10/30/18 ALESSANDRO ERIC During your visit today, we recorded the following information about you: Alessandro Eric MD 10/30/2018 3:08 PM Signed OK to refill as ordered MD Raquel Castillo Ma 10/30/2018 3:24 PM Signed The following approved medication requests have been transmitted electronically. Signed Prescriptions Disp Refills lisinopril (ZESTRIL, PRINIVIL) 5 mg tablet 90 tablet 1 Sig: Take 1 tablet by mouth once daily. JENNIFER: No Authorizing Provider: ALESSANDRO ERIC atorvastatin (LIPITOR) 80 mg tablet 90 tablet 1 Sig: Take 1 tablet by mouth once daily. JENNIFER: No Authorizing Provider: ALESSANDRO ERIC clopidogrel (PLAVIX) 75 mg tablet 90 tablet 1 Sig: Take 1 tablet by mouth once daily. JENNIFER: No Authorizing Provider: ALESSANDRO ERIC Ma Allergies As of Date: 10/30/2018 Noted Allergy Reaction OXYCONTIN (OXYCODONE HCL) 09/27/2007 Comments: itch PENICILLINS 06/02/2007 4 - Hives REQUIP (ROPINIROLE) 11/18/2015 5 - Intolerance Comments: Vomiting, panic attacks, itching Date Reviewed: 10/20/2018 Reviewed by: Cecy Carbajal RN - Fully Assessed Reason for Visit: Refill Request [94] Order(s):lisinopril (ZESTRIL, PRINIVIL) 5 mg tabletTake 1 tablet by mouth once daily.Disp: 90 tabletRfl: 1 atorvastatin (LIPITOR) 80 mg tabletTake 1 tablet by mouth once daily.Disp: 90 tabletRfl: 1 clopidogrel (PLAVIX) 75 mg tabletTake 1 tablet by mouth once daily.Disp: 90 tabletRfl: 1 Prescriptions as of 10/30/2018 Sig: LISINOPRIL 5 MG TABLET Take 1 tablet by mouth once d* ATORVASTATIN 80 MG TABLET Take 1 tablet by mouth once d* CLOPIDOGREL 75 MG TABLET Take 1 tablet by mouth once d* PROMETHAZINE 25 MG TABLET EVERY 6 HOURS NEEDED PRN F* ESCITALOPRAM 10 MG TABLET DAILY ISOSORBIDE MONONITRATE ER 30 * DAILY METOPROLOL TARTRATE 25 MG TAB* Take 12.5 mg by mouth twice d* INSULIN DETEMIR (U-100) 100 U* Inject 30 units subcutaneousl* ROPINIROLE 3 MG TABLET Take 1 tablet by mouth twice * BLOOD SUGAR DIAGNOSTIC STRIPS Use as instructed. Tests bloo* DOCUSATE SODIUM 100 MG CAPSULE Take 1 capsule by mouth twice* INSULIN ASPART U-100 100 UNI* Inject 20 Units subcutaneousl* LACTOBACILLUS RHAMNOSUS GG 10* Take 1 capsule by mouth once * SIMETHICONE 80 MG CHEWABLE TA* Take 1 tablet by mouth four t* OXYCODONE 5 MG TABLET Take 1 tablet by mouth every * PROMETHAZINE 25 MG TABLET Take 1 tablet by mouth every * GABAPENTIN 800 MG TABLET Take 1 tablet by mouth three * BLOOD-GLUCOSE METER 1 Units as directed. Dx: E11.* MAGNESIUM OXIDE 400 MG (241.3* Take 1 tablet by mouth twice * PEN NEEDLE, DIABETIC 31 GAUGE* Use as directed four times da* ASCORBIC ACID (VITAMIN C) 500* Take 1 tablet by mouth twice * BLOOD SUGAR DIAGNOSTIC STRIPS Test blood sugar(s) 3- 4 times* BLOOD SUGAR DIAGNOSTIC STRIPS Check blood sugar readings 2-* LANCETS Check blood sugar readings 2-* BLOOD-GLUCOSE METER KIT 1 Each as needed. LANCETS Test 2-3 times a day Problem List As Of Date 10/30/2018 Noted Resolved Reaction, adjustment, with depressed mood, [...] Class I, BMI 30-34.9 [E66.9] INVALID FOR* Prescriptions ordered this encounter Disp Refills Start End LISINOPRIL 5 MG TABLET 90 t* 1 10/30/2018 Route: ORAL Sig: Take 1 tablet by mouth once daily. ATORVASTATIN 80 MG TABLET 90 t* 1 10/30/2018 Route: ORAL Sig: Take 1 tablet by mouth once daily. CLOPIDOGREL 75 MG TABLET 90 t* 1 10/30/2018 Route: ORAL Sig: Take 1 tablet by mouth once daily. Medications Discontinued During This Encounter lisinopril (ZESTRIL, PRINIVIL) 5 mg * 09/22/2018 10/30/2018 Class: Historical Med Route: ORAL Sig: Take 1 tablet by mouth once daily. Disc: Reason for discontinue is not on file. atorvastatin (LIPITOR) 80 mg tablet 09/22/2018 10/30/2018 Class: Historical Med Sig: AT BEDTIME Disc: Reason for discontinue is not on file. clopidogrel (PLAVIX) 75 mg tablet 09/22/2018 10/30/2018 Class: Historical Med Sig: DAILY Disc: Reason for discontinue is not on file. Encounter Status:Closed by RAQUEL ALVAREZ MA on 10/30/18 PROGRESS Observed: 10/20/2018 Status: COMPLETED Source: [facility] 4:40 PM [facility] REPOSITORY HNO ID: [id number] Author: Cecy Carbajal RN Service: (none) Author Type: (none) Type: Progress Notes Filed: 10/23/2018 11:27 PM Note Text: EpiFix #1 LOT # [id number] EXP 05/10/2023 Cecy Carbajal RN PROGRESS Observed: 10/20/2018 Status: COMPLETED Source: [facility] 4:10 PM [facility] REPOSITORY HNO ID: [id number] Author: Sendy Allen Service: (none) Author Type: Physician Type: Progress Notes Filed: 10/23/2018 11:27 PM Note Text: Follow up podiatric office visit for: Chief Complaint: This 53 year old who presents for follow up:left foot ulceration. Patient has been applying aquacel to ulceration. She denies any n/v/f/c. She is using boot and trying her hardest to stay off her left foot. She has pain to right foot but pain is tolerable. Her ulceration of right foot remains healed. She has no other complaints. PAIN EVALUATION No data found. Hemoglobin A1C Date Value Ref Range Status 08/30/2018 11.7 (H) 4.3 - 5.6 % Final Comment: [place] [employer] guidelines indicate that patients with [...] Fallen arches (Broken) on both sides - History of heart attack 09/20/2018 - NSTEMI (non-ST elevated myocardial infarction) (HCC) 09/2018 - Polyneuropathy in diabetes(357.2) - Restless legs syndrome (RLS) Current Outpatient Prescriptions: lisinopril (ZESTRIL, PRINIVIL) 5 mg tablet Take 1 tablet by mouth once daily. promethazine (PHENERGAN) 25 mg tablet EVERY 6 HOURS NEEDED PRN For NAUSEA/VOMITING escitalopram oxalate (LEXAPRO) 10 mg tablet DAILY atorvastatin (LIPITOR) 80 mg tablet AT BEDTIME isosorbide mononitrate ER (IMDUR) 30 mg 24 hr tablet DAILY metoprolol tartrate, short acting, (LOPRESSOR) 25 mg tablet Take 12.5 mg by mouth twice daily. clopidogrel (PLAVIX) 75 mg tablet DAILY insulin detemir U-100 (LEVEMIR FLEXPEN) 100 unit/mL (3 mL) inpn injection Inject 30 units subcutaneously daily at breakfast rOPINIRole Hydrochloride 3 mg tablet Take 1 tablet by mouth twice daily. blood sugar diagnostic (CONTOUR NEXT TEST STRIPS) test strip Use as instructed. Tests blood sugars 3 to 4 times a day. E10.65; Insulin: yes. docusate sodium (COLACE) 100 mg capsule Take 1 capsule by mouth twice daily as needed for Constipation. insulin aspart U-100 (NOVOLOG FLEXPEN U-100 INSULIN) 100 unit/mL inpn Inject 20 Units subcutaneously three times daily with meals. simethicone, chewable (MYLICON) 80 mg chewable tablet Take 1 tablet by mouth four times daily as needed (GI upset). promethazine (PHENERGAN) 25 mg tablet Take 1 tablet by mouth every 6 hours as needed. Blood-Glucose Meter (ACCU-CHEK MEGAN CONNECT METER) misc 1 Units as directed. Dx: E11.40 magnesium oxide (MAG-OX) 400 mg tablet Take 1 tablet by mouth twice daily. insulin needles, DISPOSABLE, (PEN NEEDLE) 31 gauge x 5/16 ndle Use as directed four times daily ascorbic acid, vitamin C, (VITAMIN C) 500 [...] Lancets lancets Test 2-3 times a day lactobacillus rhamnosus (CULTURELLE) 10 billion cell capsule Take 1 capsule by mouth once daily for 7 days. oxyCODONE IR (ROXICODONE) 5 mg immediate release tablet Take 1 tablet by mouth every 8 hours as needed. gabapentin (NEURONTIN) 800 mg tablet Take 1 [...] HISTORY OF removal right 5th metatarsal - PAST SURGICAL HISTORY OF 09/21/2018 cardiac stent x 2 - PAST SURGICAL HISTORY OF N/A 09/2018 Heart Cath with stent placement - PICC LINE INSERT/CONSULT 06/14/2014 - REPAIR [...] b/l are normal. Webspaces clean and dry 1-4 b/l. Skin appears well hydrated and supple. good color, texture, turgor. Ulceration to left foot measures 1.6 cm x 0.7. Ulceration is granular with periwound hyperkeratosis. No exposed tendon or bone. No signs of infection. Right foot ulceration remains healed. ASSESSMENT: (E11.621, L97.422) Diabetic ulcer of left midfoot associated with type 2 diabetes mellitus, with fat layer exposed (HCC) (primary encounter diagnosis) (E11.42) Diabetic polyneuropathy associated with type 2 diabetes mellitus (HCC) (M25.571, G89.29) Chronic pain of right ankle PLAN: Patient was examined and informed of current findings Discussed ulceration of left foot. Ulceration does appear to be reducing in size. Ulceration appears granular without signs of infection. Today, sharp debridement of ulceration was performed with 15 blade. Discussed options to include aquacel vs proceeding skin substiute. She has been approved epifix. Discussed risks vs benefits of epifix. She elected to proceed with epifix. Application of Epifix dressing #1 measuring a total of 2 square centimeters to wound today. Application per protocol with application of wound veil and steri-strips as well as Aquacel Ag, bolster dressing, kerlix and coban. Pt instructed to keep dressing in place for the next week. CPT [id number] sq/cm. Notable 0 % of graft was wasted today and disposed of due to not needed for size of wound. Patient should keep dressing dry, clean and intact until next visit. RTC 1 week for re-evaluation of wound and possible application of another epifix graft. Sendy Allen DPM PROGRESS Observed: 10/20/2018 Status: COMPLETED Source: [facility] 3:49 PM [facility] REPOSITORY HNO ID: [id number] Author: Cecy Carbajal RN Service: (none) Author Type: (none) Type: Progress Notes Filed: 10/23/2018 11:27 PM Note Text: AMB ROOMING INTAKE FLOWSHEET DATA Risk Screening Do you have concerns about personal safety or safety in the home?: No Patient presents for follow up of ulceration, L foot and application of Epifix. Pt states she has been applying Vanessa and alternating with silver alginate. She is wearing boot and staying off of her foot. Denies n/v/f/c. Blood sugar was 230 mg/dL today. CNOV Observed: 10/20/2018 Status: COMPLETED Source: [facility] 3:30 PM [facility] REPOSITORY Office Visit (PODIWS) DIONY CARRILLO ([id number]) 1965 F Date Time Provider Department 10/20/18 3:30 PM SENDY ALLEN PODIWS During your visit today, we recorded the following information about you: Cecy Carbajal RN 10/23/2018 11:27 PM Signed AMB ROOMING INTAKE FLOWSHEET DATA Risk Screening Do you have concerns about personal safety or safety in the home?: No Patient presents for follow up of ulceration, L foot and application of Epifix. Pt states she has been applying Vanessa and alternating with silver alginate. She is wearing boot and staying off of her foot. Denies n/v/f/c. Blood sugar was 230 mg/dL today. Sendy Allen, BRITTANIE 10/23/2018 11:27 PM Signed Follow up podiatric office visit for: Chief Complaint: This 53 year old who presents for follow up:left foot ulceration. Patient has been applying aquacel to ulceration. She denies any n/v/f/c. She is using boot and trying her hardest to stay off her left foot. She has pain to right foot but pain is tolerable. Her ulceration of right foot remains healed. She has no other complaints. PAIN EVALUATION No data found. Hemoglobin A1C Date Value Ref Range Status 08/30/2018 11.7 (H) 4.3 - 5.6 % Final Comment: [place] [employer] guidelines indicate that patients with [...] Fallen arches (Broken) on both sides - History of heart attack 09/20/2018 - NSTEMI (non-ST elevated myocardial infarction) ([facility]) 09/2018 - Polyneuropathy in diabetes(357.2) - Restless legs syndrome (RLS) Current Outpatient Prescriptions: lisinopril (ZESTRIL, PRINIVIL) 5 mg tablet Take 1 tablet by mouth once daily. promethazine (PHENERGAN) 25 mg tablet EVERY 6 HOURS NEEDED PRN For NAUSEA/VOMITING escitalopram oxalate (LEXAPRO) 10 mg tablet DAILY atorvastatin (LIPITOR) 80 mg tablet AT BEDTIME isosorbide mononitrate ER (IMDUR) 30 mg 24 hr tablet DAILY metoprolol tartrate, short acting, (LOPRESSOR) 25 mg tablet Take 12.5 mg by mouth twice daily. clopidogrel (PLAVIX) 75 mg tablet DAILY insulin detemir U-100 (LEVEMIR FLEXPEN) 100 unit/mL (3 mL) inpn injection Inject 30 units subcutaneously daily at breakfast rOPINIRole Hydrochloride 3 mg tablet Take 1 tablet by mouth twice daily. blood sugar diagnostic (CONTOUR NEXT TEST STRIPS) test strip Use as instructed. Tests blood sugars 3 to 4 times a day. E10.65; Insulin: yes. docusate sodium (COLACE) 100 mg capsule Take 1 capsule by mouth twice daily as needed for Constipation. insulin aspart U-100 (NOVOLOG FLEXPEN U-100 INSULIN) 100 unit/mL inpn Inject 20 Units subcutaneously three times daily with meals. simethicone, chewable (MYLICON) 80 mg chewable tablet Take 1 tablet by mouth four times daily as needed (GI upset). promethazine (PHENERGAN) 25 mg tablet Take 1 tablet by mouth every 6 hours as needed. Blood-Glucose Meter (ACCU-CHEK MEGAN CONNECT METER) misc 1 Units as directed. Dx: E11.40 magnesium oxide (MAG-OX) 400 mg tablet Take 1 tablet by mouth twice daily. insulin needles, DISPOSABLE, (PEN NEEDLE) 31 gauge x 5/16 ndle Use as directed four times daily ascorbic acid, vitamin C, (VITAMIN C) 500 [...] Lancets lancets Test 2-3 times a day lactobacillus rhamnosus (CULTURELLE) 10 billion cell capsule Take 1 capsule by mouth once daily for 7 days. oxyCODONE IR (ROXICODONE) 5 mg immediate release tablet Take 1 tablet by mouth every 8 hours as needed. gabapentin (NEURONTIN) 800 mg tablet Take 1 [...] HISTORY OF removal right 5th metatarsal - PAST SURGICAL HISTORY OF 09/21/2018 cardiac stent x 2 - PAST SURGICAL HISTORY OF N/A 09/2018 Heart Cath with stent placement - PICC LINE INSERT/CONSULT 06/14/2014 - REPAIR ROTATOR CUFF,ACUTE 1996 Rotator cuf repair right, Dr Alvarado - [facility] N/CARPAL TUNNEL SURG 1996 Carpal tunnel decomp, right, Dr Alvaardo - [facility]/CARPAL TUNNEL SURG 2008 Carpal tunnel decomp, LEFT Physical Exam: Constitutional: Pt is a well developed 53 year old female who is alert, oriented, cooperative and in no apparent distress. OBJECTIVE: NVSI unchanged from previous visit. Dermatological: Nails 1-4 b/l are normal. Webspaces clean and dry 1-4 b/l. Skin appears well hydrated and supple. good color, texture, turgor. Ulceration to left foot measures 1.6 cm x 0.7. Ulceration is granular with periwound hyperkeratosis. No exposed tendon or bone. No signs of infection. Right foot ulceration remains healed. ASSESSMENT: (E11.621, L97.422) Diabetic ulcer of left midfoot associated with type 2 diabetes mellitus, with fat layer exposed (HCC) (primary encounter diagnosis) (E11.42) Diabetic polyneuropathy associated with type 2 diabetes mellitus ([facility]) (M25.571, G89.29) Chronic pain of right ankle PLAN: Patient was examined and informed of current findings Discussed ulceration of left foot. Ulceration does appear to be reducing in size. Ulceration appears granular without signs of infection. Today, sharp debridement of ulceration was performed with 15 blade. Discussed options to include aquacel vs proceeding skin substiute. She has been approved epifix. Discussed risks vs benefits of epifix. She elected to proceed with epifix. Application of Epifix dressing #1 measuring a total of 2 square centimeters to wound today. Application per protocol with application of wound veil and steri-strips as well as Aquacel Ag, bolster dressing, kerlix and coban. Pt instructed to keep dressing in place for the next week. CPT [id number] sq/cm. Notable 0 % of graft was wasted today and disposed of due to not needed for size of wound. Patient should keep dressing dry, clean and intact until next visit. RTC 1 week for re-evaluation of wound and possible application of another epifix graft. BRITTANIE Stark DPM 10/20/2018 4:35 PM Signed Change 4x4 and cling daily. DO NOT GET WET. If you notice a rash developing from steri strips, remove and contact office. Cecy Carbajal RN 10/23/2018 11:27 PM Signed EpiFix #1 LOT # [id number] EXP 05/10/2023 Cecy Carbajal RN Referring Provider: SENDY ALLEN [[id number]] Allergies As of Date: 10/20/2018 Noted Allergy Reaction OXYCONTIN (OXYCODONE HCL) 09/27/2007 Comments: itch PENICILLINS 06/02/2007 4 - Hives REQUIP (ROPINIROLE) 11/18/2015 5 - Intolerance Comments: Vomiting, panic attacks, itching Date Reviewed: 10/20/2018 Reviewed by: Cecy Carbajal RN - Fully Assessed Reason for Visit: Recheck [92] Primary Visit Diagnosis:Diabetic ulcer of left midfoot associated with type 2 diabetes mellitus, with fat layer exposed ([facility]) [E11.621, L97.422] Other Visit Diagnoses:Diabetic polyneuropathy associated with type 2 diabetes mellitus ([facility]) [E11.42] Chronic pain of right ankle [M25.571, G89.29] Prescriptions as of 10/20/2018 Sig: LISINOPRIL 5 MG TABLET Take 1 tablet by mouth once d* PROMETHAZINE 25 MG TABLET EVERY 6 HOURS NEEDED PRN F* ESCITALOPRAM 10 MG TABLET DAILY ATORVASTATIN 80 MG TABLET AT BEDTIME ISOSORBIDE MONONITRATE ER 30 * DAILY METOPROLOL TARTRATE 25 MG TAB* Take 12.5 mg by mouth twice d* CLOPIDOGREL 75 MG TABLET DAILY INSULIN DETEMIR (U-100) 100 U* Inject 30 units subcutaneousl* ROPINIROLE 3 MG TABLET Take 1 tablet by mouth twice * BLOOD SUGAR DIAGNOSTIC STRIPS Use as instructed. Tests bloo* DOCUSATE SODIUM 100 MG CAPSULE Take 1 capsule by mouth twice* INSULIN ASPART U-100 100 UNI* Inject 20 Units subcutaneousl* SIMETHICONE 80 MG CHEWABLE TA* Take 1 tablet by mouth four t* PROMETHAZINE 25 MG TABLET Take 1 tablet by mouth every * BLOOD-GLUCOSE METER 1 Units as directed. Dx: E11.* MAGNESIUM OXIDE 400 MG (241.3* Take 1 tablet by mouth twice * PEN NEEDLE, DIABETIC 31 GAUGE* Use as directed four times da* ASCORBIC ACID (VITAMIN C) 500* Take 1 tablet by mouth twice * BLOOD SUGAR DIAGNOSTIC STRIPS Test blood sugar(s) 3- 4 times* BLOOD SUGAR DIAGNOSTIC STRIPS Check blood sugar readings 2-* LANCETS Check blood sugar readings 2-* BLOOD-GLUCOSE METER KIT 1 Each as needed. LANCETS Test 2-3 times a day LACTOBACILLUS RHAMNOSUS GG 10* Take 1 capsule by mouth once * OXYCODONE 5 MG TABLET Take 1 tablet by mouth every * GABAPENTIN 800 MG TABLET Take 1 tablet by mouth three * Problem List As Of Date 10/20/2018 Noted Resolved Reaction, adjustment, with depressed mood, [...] INVALID FOR* Other instructions from your clinician: Change 4x4 and cling daily. DO NOT GET WET. If you notice a rash developing from steri strips, remove and contact office. Encounter Status:Closed by SENDY ALLEN DPM on 10/23/18 CONSULTATION Observed: 10/19/2018 Status: F Source: [place] 7:50 PM [facility] [place], [place] REPOSITORY [facility] Medical Records Department [address] [place] [id number] Consultation 08/23/18 0654 MR#: [id number] Acct: [id number] Name: DIONY CARRILLO Rep #: [id number] : 1965 53 From: Sendy Allen DPM PCP: Jeaneth DELVALLE,Alessandro Status: DIS IN Y Location: [place]3 [id number] Reason for Consult Date of Consultation: 08/23/18 Reason for Consultation: diabetic foot infection, left foot History of Present Illness: The patient is a 53 year old F with diabetic foot infection of left foot. She has ulceration of b/l foot for greater than 2 weeks. she initially tried to treat herself. when her foot was not responding to her care, she presented to the emergency room last at which time she was prescribed doxycycline. She was seen by me on Tuesday last week and we placed in her b/l boots with peg assisted offloading. wound culture was performed and culture grew out group b strep and staph aureus sensitive to doxycycline. she presented to my clinic yesterday. her right foot has improved but her left foot was more swollen and painful with drainage present. patient states she has not eaten any food in two days. patient was subsequently admitted to hospital and mri was performed last night. patient is diabetic x many years. she is very noncompliant with her diabetic management. she has not seen her pcp in over one year so she has not been able to get diabetic shoes that were ordered. She reports to walking barefoot at home and very rarely uses her diabetic shoes while in the house. She has been informed that these wounds do place her at risk of losing her leg but she does not wish to accept this. Past Medical History Past Medical History (Chronic [...] 1994, section x2. 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 Objective: patient is alert and orientated x 3. no acute distress Vascular: DP and PT pulses are palpable b/l. cft is less than 5 seconds. skin temperature is warm to warm. no erythema is noted to b/l lower extremity. Derm: there is full thickness ulceration to plantar left 5th metatarsal base. ulceration is approximately 6 mm in diameter. it has lateral extension along the lateral arch with evidence of bullae. there is serous sanginous drainage present. no foul odor present. The right foot has very superficial ulceration, about 5 mm with no signs of infection. M/s: charcot changes are noted b/l with prominent 5th metatarsal base. no calf pain present to b/l lower extremity. - Physical Exam Vital Signs Temp Pulse Resp BP Pulse Ox 98.2 F 77 16 100/61 94 08/23/18 03:00 08/23/18 03:59 08/23/18 03:00 08/23/18 03:00 08/23/18 03:00 Oxygen Delivery Method Room Air Weight: 80.649 kg Body Mass Index (BMI) 28.7 Intake and Output for Last 24 Hours Intake Total 1171 / 1171 737 / 737 Output Total 250 / 250 Balance 921 / 921 737 / 737 Laboratory Tests Past 24 Hrs WBC RBC Hgb Hct MCV MCH MCHC RDW RDW Differential Plt Count MPV Immature Gran % (Auto) WBC RBC Hgb Hct WBC 6.7 RBC 3.71 L Hgb 10.6 L Hct 32.6 L MCV 87.9 MCH 28.6 MCHC 32.5 RDW 13.5 RDW Differential 43.4 POC Glucose POC Glucose 264 H 326 H 383 H Assessment/Plan All Active Problems Hepatitis B (Resolved) 1. diabetic foot infection Discussed diabetic foot infection at great detail. This patient is unfortunately very noncompliant. she has history of ulceration of b/l feet and in the past, she has never taken them serious. She has always accepted that she has healed in past so she is inclined to feel that she can heal any ulceration. she has been ordered diabetic shoes and afo but has yet to get these as she has not been seen by her pcp. Her a1c recently was tested at [facility] and is greater than 12.8. this patient is very noncompliant and is certainly at risk of amputation. I feel she is finally taking her foot issues serious. on exam, she does have serous sanginous discharge to left foot ulceration. This ulceration would benefit from surgical debridement. Further, there appears to be lateral extension of her plantar foot ulceration that communicates with ulceration. this too will need to be debrided. I informed patient the etiology of these ulcerations are likely the underlying hypertrophic bone of 5th metatarsal base. I have discussed I AND D with possible bone resection. If bone is infected, patient would benefit from ray resection. I informed patient risk of developing equinovarus deformity if entire ray is removed. she does not wish to proceed with any bone resection if no infection present in bone. Despite telling her that this bone will likely be source of further ulceration/infection, she does not wish to proceed with bone resection. she would only consent to I AND D with possible wound vac application if bone is not infected. Will await MRI results. will plan for some form of surgical debridement this evening. will keep patient npo. 2. right foot ulceration. continue with silvercel and peg assisted offloading boot while ambulator. 3. Diabetes: patient would greatly benefit from nutrition consult/diabetic management. patient is very poorlyl controlled diabetic with noncompliance 10/19/18 1950 <Electronically signed by Sendy Allen DPM> Date Sendy Allen DPM Cosigner Signature (if applicable): Date CC: BRITTANIE Allen; Annie Duran MD; Alessandro Eric MD; Kike Tello MD Signed OPERATIVE REPORT Observed: 10/19/2018 Status: F Source: [place] 7:50 PM [facility] [place], [place] REPOSITORY [facility] Medical Records Department [address] [place] [address] Operative Report 08/23/[id number] MR#: [id number] Acct: [id number] Name: DIONY CARRILLO Rep #: [id number] : 1965 53 From: Sendy Allen DPM PCP: Alessandro Eric MD Status: DIS IN Y Location: MS3 [id number] Report of Operation Date of Procedure: 08/23/18 Pre-Operative Diagnosis: diabetic foot ulceration with infection, left foot Post-Operative Diagnosis: diabetic foot ulceration with infection Surgery/Procedure Performed:: Incision and drainage of left foot with bone biopsy of 5th metatarsal Description of Surgical Findings:: very bad ulceration of left foot with considerable undermining, nonviable tissue. ulceration measures 3.5 cm x 2.5 cm x 1.0 cm depth following debridement. 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 She developed ulceration to b/l 5th metatarsal approximately 2 weeks ago. She initially tried to treat herself but failed to achieve any improvement. she presented to the [facility] last and was placed on doxycycline. She was seen by me the following day at which time the ulceration appeared stable. A wound culture was performed and grew out mssa and group b Strep. I attempted to contact patient over weekend regarding culture but her voice mail was not activated and I was unable to get in touch with this patient. She was treated with peg assisted offloading boot. her right foot ulceration has slowly progressed but over the past few days, her left foot ulceration was worsening and there has been drainage present. she presented to my clinic yesterday and was found to have draining foot wound of left lower extremity. she was admitted to the hospital and further work- up of left foot ulceration was performed. MRI of the left foot was performed. the mri was concerning for cellulitis but no evidence of osteomyelitis or abscess was noted. ESR and CRP were both elevated. WBC was normal. On exam, patient has full thickness ulceration of left plantar foot just distal to remaining 5t metatarsal base. there appears to be lateral extension of this ulceration. I have proposed to patient incision and drainage of left foot ulceration, debridement of nonviable tissue and likely wound vac application. I have suggested to patient partial 5t ray resection of remaining base of left foot. certainly any complete resection of left 5th metatarsal base could result in equinovarus. I do believe that partial 5th ray resection of remaining bone may be of benefit to heal this ulceration. I have offered and recommended resection of bone but patient is not willing to consent to this at this time. I have informed patient that it is very well possible that this may be required in the future. she understands this but she is not willing to consent to this. she is however willing to consent to I AND D of left foot, debridement of ulceration and bone biopsy of 5th metatarsal. I have discussed risks of this procedure. patient now fully understands the severity of this ulceration, this being potential for below knee amputation. she also understands the likely need for post-op wound vac and possible iv antibiotics. patient fully understands that even with devoted efforts to saving this foot, she is at risk of below knee amputation. other risks include hematoma, sepsis, . patient consents to proceed with I AND D, debridement with bone biopsy. It should be noted that this patient is very poorly controlled diabetic and noncompliant. She admits that prior to seeing me yesterday, she is often times walking barefoot. Her diet is poorly controlled and consists of soda, candy, pizza, chips. Her a1c was greater than 12.0 and her sugars have been in high 300-400s this past several weeks. patient informed that sugars this high are prone to slow to nonhealing. patient understands this. Patient was seen by anesthesia department prior to surgery and found to be stable for mac anesthesia. She was transferred to operating room and placed on operating room table in supine position. she was administered mac anesthesia. the left foot was prepped and draped in usual aseptic technique. 4 cc of lidocaine plain was used but patient has no feeling in her left foot. timeout was performed making note of procedure. Attention was then directed to the left foot ulceration. the ulceration was found to be approximately 6 mm in diameter but presents with significant fibrin slough and serous/sanginous drainage. Full thickness debridement thru the subcutaneous tissue was performed. there was lateral extension with undermining of the left foot ulceration. It was determined given the presence of undermining and drainage that this tissue was nonviable. using 15 blade and forceps, the skin extending to ulceration was debrided. a full thickness debridement was performed. manipulation/compression of foot was performed and there was purulent drainage with undermining distal and proximal to ulceration. the ulceration was incised both proximally and distally. all remaining purulence was evacuated. following debridement, there was wound that measured 3.5 cm x 2.5 cm x 1.0 cm depth. this wound was to level of plantar periosteum. no bone was visible. pulse lavage was performed with 5000 cc of normal saline. Next, using clean instrumentation, a percutaneous biopsy of 5th metatarsal was performed. The biopsy was performed thru a separate dorsal incision to avoid contamination from ulceration. the bone was found to be firm on biopsy. xray confirmed placement of biopsy. two samples were obtained. one was sent for pathology and the other was sent for micro. hemostasis was achieved with cautery. a post-op dressing was applied consisting of guaze, alison, abd, brando. patient was awakened and found to be in stable condition. She was transferred to pacu in stable condition. I will consult wound nurse to apply wound vac on post-op day #1. she will require wound vac at discharge I recommend patient to go to rehab. I think rehab is best for this patient to stay off her foot. she needs to be total nwb to left foot with wound vac and can be partial weightbearing to right heel with peg assisted offloading boot. she will require silvercel to right foot ulceration and boot. she will require wound vac to left foot. will await culture results. if bone is infected, further ray resection vs bka may be necessary 10/19/18 1950 <Electronically signed by Sendy Allen DPM> Date Sendy Allen DPM CC: BRITTANIE Allen; Annie uDran MD; Alessandro Eric MD; Kike Tello MD Signed PROGRESS Observed: 10/16/2018 Status: COMPLETED Source: [facility] 9:01 AM [facility] REPOSITORY HNO ID: [id number] Author: Sendy Allen Service: (none) Author Type: Physician Type: Progress Notes Filed: 10/16/2018 9:08 AM Note Text: Follow up podiatric office visit for: Chief Complaint: This 53 year old who presents for follow up:left foot ulceration. Patient is applying vanessa to her left foot ulceration. She states she is using her boot at home but she presents to clinic without her boot. She is not even wearing shoes to office appointment. She denies any drainage of left foot. She denies n/v/f/c. She has no ulceration of right foot. Of note, she has yet to contact [facility]amp regarding b/l afo. PAIN EVALUATION No data found. Hemoglobin A1C Date Value Ref Range Status 08/30/2018 11.7 (H) 4.3 - 5.6 % Final Comment: [place] [employer] guidelines indicate that patients with [...] Fallen arches (Broken) on both sides - History of heart attack 09/20/2018 - NSTEMI (non-ST elevated myocardial infarction) (HCC) 09/2018 - Polyneuropathy in diabetes(357.2) - Restless legs syndrome (RLS) Current Outpatient Prescriptions: lisinopril (ZESTRIL, PRINIVIL) 5 mg tablet Take 1 tablet by mouth once daily. promethazine (PHENERGAN) 25 mg tablet EVERY 6 HOURS NEEDED PRN For NAUSEA/VOMITING escitalopram oxalate (LEXAPRO) 10 mg tablet DAILY atorvastatin (LIPITOR) 80 mg tablet AT BEDTIME isosorbide mononitrate ER (IMDUR) 30 mg 24 hr tablet DAILY metoprolol tartrate, short acting, (LOPRESSOR) 25 mg tablet Take 12.5 mg by mouth twice daily. clopidogrel (PLAVIX) 75 mg tablet DAILY insulin detemir U-100 (LEVEMIR FLEXPEN) 100 unit/mL (3 mL) inpn injection Inject 30 units subcutaneously daily at breakfast rOPINIRole Hydrochloride 3 mg tablet Take 1 tablet by mouth twice daily. blood sugar diagnostic (CONTOUR NEXT TEST STRIPS) test strip Use as instructed. Tests blood sugars 3 to 4 times a day. E10.65; Insulin: yes. docusate sodium (COLACE) 100 mg capsule Take 1 capsule by mouth twice daily as needed for Constipation. insulin aspart U-100 (NOVOLOG FLEXPEN U-100 INSULIN) 100 unit/mL inpn Inject 20 Units subcutaneously three times daily with meals. simethicone, chewable (MYLICON) 80 mg chewable tablet [...] 1 tablet by mouth twice daily. insulin needles, DISPOSABLE, (PEN NEEDLE) 31 gauge x 5/16 ndle Use as directed four times daily ascorbic acid, vitamin C, (VITAMIN C) 500 [...] Lancets lancets Test 2-3 times a day lactobacillus rhamnosus (CULTURELLE) 10 billion cell capsule Take 1 capsule by mouth once daily for 7 days. gabapentin (NEURONTIN) 800 mg tablet Take 1 [...] HISTORY OF removal right 5th metatarsal - PAST SURGICAL HISTORY OF 09/21/2018 cardiac stent x 2 - PAST SURGICAL HISTORY OF N/A 09/2018 Heart Cath with stent placement - PICC LINE INSERT/CONSULT 06/14/2014 - REPAIR [...] weakness/paresthesias or numbness of concern. MUSC-SKEL: Pain in right ankle PSY: No concerns regarding depression, anxiety or panic. INTEGUMENTARY: Ulcer of left foot Physical Exam: Constitutional: Pt is a well developed 53 year old female who is alert, oriented, cooperative and in no apparent distress. OBJECTIVE: NVSI unchanged from previous visit. Dermatological: Superficial ulceration of left 5th metatarsal. Ulceration measures 1.8 cm x 1.0 cm. There is granular base with vinicius-wound hyperkeratosis. There is no exposed tendon or bone. There are no local signs of infection. Right foot has no open sores. No signs of infection b/l feet. 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 History and physical examination completed today. 2. Patient ulceration of left foot shows reduction in size. Today, the periwound area was debrided with tissue nippers of all noviable tissue. Discussed casting vs continued use of boot and vanessa. Patient would like to continue with vanessa and boot. She was recommended to use boot and nwb of left foot at all times. Will order epifix to be applied at next office visit. 3. Right foot has no ulceration. Continue with diabetic shoes. 4. Recommend she contact uSamp to discuss status of afo. Sendy Allen DPM PROGRESS Observed: 10/16/2018 Status: COMPLETED Source: [place] 7:43 AM [facility] REPOSITORY HNO ID: [id number] Author: Cecy Carbajal RN Service: (none) Author Type: (none) Type: Progress Notes Filed: 10/16/2018 9:08 AM Note Text: Vanessa applied to ulcer of L lateral foot. Covered with a 4x4, alison and BRANDO. PROGRESS Observed: 10/13/2018 Status: COMPLETED Source: [facility] 3:53 PM [facility] REPOSITORY HNO ID: [id number] Author: Mary King Ma Service: (none) Author Type: (none) Type: Progress Notes Filed: 10/16/2018 9:08 AM Note Text: AMB ROOMING INTAKE FLOWSHEET DATA Risk Screening Do you have concerns about personal safety or safety in the home?: No Patient presents for L lateral 5th ulceration. She has been applying vanessa daily to ulceration. Admits to having to WB at times when restrooming d/t wheelchair does not fit. She is diabetic, but did not check sugar today. Mary King Ma CNOV Observed: 10/13/2018 Status: COMPLETED Source: [place] 3:30 PM [facility] REPOSITORY Office Visit (PODIWS) MENGDIONY DONIS ([id number]) 1965 F Date Time Provider Department 10/13/18 3:30 PM SENDY ALLEN During your visit today, we recorded the following information about you: Mary King Ma 10/16/2018 9:08 AM Signed AMB ROOMING INTAKE FLOWSHEET DATA Risk Screening Do you have concerns about personal safety or safety in the home?: No Patient presents for L lateral 5th ulceration. She has been applying vanessa daily to ulceration. Admits to having to WB at times when restrooming d/t wheelchair does not fit. She is diabetic, but did not check sugar today. Mary Carbajal RN 10/13/2018 4:25 PM Signed Continue to apply Vanessa daily to ulcer of L lateral foot Wear boot on L foot. Stay NWB Cecy Carbajal RN 10/16/2018 9:08 AM Signed Vanessa applied to ulcer of L lateral foot. Covered with a 4x4, alison and BRANDO. Sendy Allen DPM 10/16/2018 9:08 AM Signed Follow up podiatric office visit for: Chief Complaint: This 53 year old who presents for follow up:left foot ulceration. Patient is applying vanessa to her left foot ulceration. She states she is using her boot at home but she presents to clinic without her boot. She is not even wearing shoes to office appointment. She denies any drainage of left foot. She denies n/v/f/c. She has no ulceration of right foot. Of note, she has yet to contact uSamp regarding b/l afo. PAIN EVALUATION No data found. Hemoglobin A1C Date Value Ref Range Status 08/30/2018 11.7 (H) 4.3 - 5.6 % Final Comment: [place] [employer] guidelines indicate that patients with [...] Fallen arches (Broken) on both sides - History of heart attack 09/20/2018 - NSTEMI (non-ST elevated myocardial infarction) (HCC) 09/2018 - Polyneuropathy in diabetes(357.2) - Restless legs syndrome (RLS) Current Outpatient Prescriptions: lisinopril (ZESTRIL, PRINIVIL) 5 mg tablet Take 1 tablet by mouth once daily. promethazine (PHENERGAN) 25 mg tablet EVERY 6 HOURS NEEDED PRN For NAUSEA/VOMITING escitalopram oxalate (LEXAPRO) 10 mg tablet DAILY atorvastatin (LIPITOR) 80 mg tablet AT BEDTIME isosorbide mononitrate ER (IMDUR) 30 mg 24 hr tablet DAILY metoprolol tartrate, short acting, (LOPRESSOR) 25 mg tablet Take 12.5 mg by mouth twice daily. clopidogrel (PLAVIX) 75 mg tablet DAILY insulin detemir U-100 (LEVEMIR FLEXPEN) 100 unit/mL (3 mL) inpn injection Inject 30 units subcutaneously daily at breakfast rOPINIRole Hydrochloride 3 mg tablet Take 1 tablet by mouth twice daily. blood sugar diagnostic (CONTOUR NEXT TEST STRIPS) test strip Use as instructed. Tests blood sugars 3 to 4 times a day. E10.65; Insulin: yes. docusate sodium (COLACE) 100 mg capsule Take 1 capsule by mouth twice daily as needed for Constipation. insulin aspart U-100 (NOVOLOG FLEXPEN U-100 INSULIN) 100 unit/mL inpn Inject 20 Units subcutaneously three times daily with meals. simethicone, chewable (MYLICON) 80 mg chewable tablet [...] 1 tablet by mouth twice daily. insulin needles, DISPOSABLE, (PEN NEEDLE) 31 gauge x 5/16 ndle Use as directed four times daily ascorbic acid, vitamin C, (VITAMIN C) 500 [...] Lancets lancets Test 2-3 times a day lactobacillus rhamnosus (CULTURELLE) 10 billion cell capsule Take 1 capsule by mouth once daily for 7 days. gabapentin (NEURONTIN) 800 mg tablet Take 1 [...] HISTORY OF removal right 5th metatarsal - PAST SURGICAL HISTORY OF 09/21/2018 cardiac stent x 2 - PAST SURGICAL HISTORY OF N/A 09/2018 Heart Cath with stent placement - PICC LINE INSERT/CONSULT 06/14/2014 - REPAIR [...] weakness/paresthesias or numbness of concern. MUSC-SKEL: Pain in right ankle PSY: No concerns regarding depression, anxiety or panic. INTEGUMENTARY: Ulcer of left foot Physical Exam: Constitutional: Pt is a well developed 53 year old female who is alert, oriented, cooperative and in no apparent distress. OBJECTIVE: NVSI unchanged from previous visit. Dermatological: Superficial ulceration of left 5th metatarsal. Ulceration measures 1.8 cm x 1.0 cm. There is granular base with vinicius-wound hyperkeratosis. There is no exposed tendon or bone. There are no local signs of infection. Right foot has no open sores. No signs of infection b/l feet. 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 History and physical examination completed today. 2. Patient ulceration of left foot shows reduction in size. Today, the periwound area was debrided with tissue nippers of all noviable tissue. Discussed casting vs continued use of boot and vanessa. Patient would like to continue with vanessa and boot. She was recommended to use boot and nwb of left foot at all times. Will order epifix to be applied at next office visit. 3. Right foot has no ulceration. Continue with diabetic shoes. 4. Recommend she contact [facility] to discuss status of afo. Sendy Allen DPM Referring Provider: SENDY ALLEN [[id number]] Allergies As of Date: 10/13/2018 Noted Allergy Reaction OXYCONTIN (OXYCODONE HCL) 09/27/2007 Comments: itch PENICILLINS 06/02/2007 4 - Hives REQUIP (ROPINIROLE) 11/18/2015 5 - Intolerance Comments: Vomiting, panic attacks, itching Date Reviewed: 10/13/2018 Reviewed by: Mary King Ma - Fully Assessed Reason for Visit: Follow Up [171] Primary Visit Diagnosis:Diabetic ulcer of left midfoot associated with type 2 diabetes mellitus, with fat layer exposed (HCC) [E11.621, L97.422] Other Visit Diagnoses:Diabetic polyneuropathy associated with type 2 diabetes mellitus (HCC) [E11.42] Chronic pain of right ankle [M25.571, G89.29] Prescriptions as of 10/13/2018 Sig: LISINOPRIL 5 MG TABLET Take 1 tablet by mouth once d* PROMETHAZINE 25 MG TABLET EVERY 6 HOURS NEEDED PRN F* ESCITALOPRAM 10 MG TABLET DAILY ATORVASTATIN 80 MG TABLET AT BEDTIME ISOSORBIDE MONONITRATE ER 30 * DAILY METOPROLOL TARTRATE 25 MG TAB* Take 12.5 mg by mouth twice d* CLOPIDOGREL 75 MG TABLET DAILY INSULIN DETEMIR (U-100) 100 U* Inject 30 units subcutaneousl* ROPINIROLE 3 MG TABLET Take 1 tablet by mouth twice * BLOOD SUGAR DIAGNOSTIC STRIPS Use as instructed. Tests bloo* DOCUSATE SODIUM 100 MG CAPSULE Take 1 capsule by mouth twice* INSULIN ASPART U-100 100 UNI* Inject 20 Units subcutaneousl* SIMETHICONE 80 MG CHEWABLE TA* Take 1 [...] GAUGE* Use as directed four times da* ASCORBIC ACID (VITAMIN C) 500* Take 1 tablet by mouth twice * BLOOD SUGAR DIAGNOSTIC STRIPS Test blood sugar(s) 3- 4 times* BLOOD SUGAR DIAGNOSTIC STRIPS Check blood sugar readings 2-* LANCETS Check blood sugar readings 2-* BLOOD-GLUCOSE METER KIT 1 Each as needed. LANCETS Test 2-3 times a day LACTOBACILLUS RHAMNOSUS GG 10* Take 1 capsule by mouth once * GABAPENTIN 800 MG TABLET Take 1 tablet by mouth three * Problem List As Of Date 10/13/2018 Noted Resolved Reaction, adjustment, with depressed mood, [...] FOR* Other instructions from your clinician: Continue to apply Vanessa daily to ulcer of L lateral foot Wear boot on L foot. Stay NWB Encounter Status:Closed by SENDY ALLEN DPM on 10/16/18 PROGRESS Observed: 10/09/2018 Status: COMPLETED Source: [facility] 10:30 AM [facility] REPOSITORY HNO ID: [id number] Author: Alessandro Eric Service: (none) Author Type: Physician Type: Progress Notes Filed: 10/09/2018 11:23 AM Note Text: Chief Complaint Patient presents with: Hospital Follow Up HPI Diony Carrillo is a 53 year old female who presents here today for a Hospital follow up. Pt here today for multiple hospital admission follow ups. Pt originally in [facility] hospital from 08/30/18 due to Left foot DM infection. Pt was in skilled for a while for foot care. Pt then back in [facility] ER due to chest pain and found to have OH, STEMI from 09/20/18-09/22/18 and then re-admitted from 09/23/18-09/24/18. Pt now and was living in [place] and has plans to return once she is better here. She lives at home alone, but daughter is around. She is non-weightbearing and using crutches and wheelchair to ambulate. DM - Checking sugars 1-2 daily with FBS ranging in the 200's. Denies any hypoglycemic events. Admits to neuropathy in bilateral feet. Following with Dr. Allen once a week due to prior admission with a foot infection. Pain - In a lot of pain today rated a 7/10 today. Notes having a flare up in sciatic symptoms. Smacking her legs on exam due to pain and moaning. States that she feels nauseated. Pain is throbbing and aching. Started last night and has not improved. RLS are not controlled and on Requip 3 mg 2 tabs at bedtime. When pain is extreme she is using Oxycodone 5 mg at bedtime to control this. She notes that she only has 2 pills left and needs refills. Taking Gabapentin 800 mg TID for pain. Chest pain - During nursing intake pt starts grabbing her chest and saying she's having chest pain with radiation down into her left arm. Declined wanted to go to ER at the moment due to feeling its stress from all over body pain. Went away shortly there after. Following with Dr. Jean Baptiste just last week with no visit until January. Pt states that she was not given Nitro but taking Baby Aspirin 81 mg. Notes that in the hospital she was given 4 baby aspirin. Yeast infection - Needs another prescription for Diflucan for a yeast infection. Past medical history, appointments, medications, allergies reviewed. Previous Medical History PAST MEDICAL HISTORY Diagnosis Date - Chronic depressive personality disorder - Degenerative disc disease - Diabetes mellitus without mention of complication Diabetes mellitus - Fallen arches (Broken) on both sides - History of heart attack 09/20/2018 - NSTEMI (non-ST elevated myocardial infarction) (HCC) 09/2018 - Polyneuropathy in diabetes(357.2) - Restless legs syndrome (RLS) Previous Surgical History PAST SURGICAL HISTORY Procedure Laterality Date - DELIVERY ONLY , low cervical - EGD W/O OR W/BRUSH/WASH 05/10/2012 EGD - LIGATE FALLOPIAN TUBE Tubal ligation - PAST SURGICAL HISTORY OF removal right 5th metatarsal - PAST SURGICAL HISTORY OF 09/21/2018 cardiac stent x 2 - PAST SURGICAL HISTORY OF N/A 09/2018 Heart Cath with stent placement - PICC LINE INSERT/CONSULT 06/14/2014 - REPAIR ROTATOR CUFF,ACUTE 1996 Rotator cuf repair right, Dr Alvarado - [facility] N/CARPAL TUNNEL SURG 1996 Carpal tunnel decomp, right, Dr Alvarado - [facility] N/CARPAL TUNNEL SURG 2008 Carpal tunnel decomp, LEFT Family History FAMILY HISTORY Problem Relation Age of Onset - Hypertension Mother - Diabetes Mother - Stroke Mother - Diabetes Sister - Heart Attack Sister triple bypass - Diabetes Brother X-3 - Heart Attack Brother triple bypass - other (Other) Brother blind AND deaf - Heart Brother X-3 - Heart Attack Brother - Breast Cancer Paternal Aunt x5 - Cancer Brother testicular, - Heart Attack Brother triple bypass Patient Allergies ALLERGIES Allergen Reactions - Oxycontin [Oxycodon* itch - Penicillins Hives - Requip [Ropinirole] Intolerance Vomiting, panic attacks, itching Current Medications Current Outpatient Prescriptions on File Prior to Visit: ascorbic acid, vitamin C, (VITAMIN C) 500 [...] MONITORING) monitoring kit 1 Each as needed. docusate sodium (COLACE) 100 mg capsule Take 1 capsule by mouth twice daily as needed for Constipation. gabapentin (NEURONTIN) 800 mg tablet Take 1 tablet by mouth three times daily for 30 days. insulin aspart U-100 (NOVOLOG FLEXPEN U-100 INSULIN) 100 unit/mL inpn Inject 20 Units subcutaneously three times daily with meals. insulin needles, DISPOSABLE, (PEN NEEDLE) 31 gauge x 5/16 ndle Use as directed four times daily lactobacillus rhamnosus (CULTURELLE) 10 billion cell capsule Take 1 capsule by mouth once daily for 7 days. Lancets (ACCU-CHEK MULTICLIX LANCET) lancets Check blood sugar readings 2-3 times daily. Insulin dependent. Dx: E11.40 Lancets lancets Test 2-3 times a day promethazine (PHENERGAN) 25 mg tablet Take 1 tablet by mouth every 6 hours as needed. rOPINIRole Hydrochloride 3 mg tablet Take 1 tablet by mouth twice daily. rosuvastatin (CRESTOR) 40 mg tablet Take 1 tablet by mouth once daily. simethicone, chewable (MYLICON) 80 mg chewable tablet Take 1 tablet by mouth four times daily as needed (GI upset). magnesium oxide (MAG-OX) 400 mg tablet Take 1 tablet by mouth twice daily. oxyCODONE IR (ROXICODONE) 5 mg immediate release tablet Take 1 tablet by mouth every 8 hours as needed. No current facility-administered medications on file prior to visit. 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 Lungs: lungs clear to auscultation. No wheezing, rhonchi, rales. Heart: RRR without murmur, gallop, or rubs. No ectopy. Health Maintenance List ANNUAL PCP TEAM CHRONIC DISEASE VISIT due on 1983 DTAP,TDAP,TD(1 - Tdap) due on 03/11/2010 COLORECTAL CANCER SCREENING,SEE MODIFIER due on 2015 MAMMOGRAM due on 03/12/2016 LDL CHOLESTEROL due on 12/31/2016 PAP EVERY 5 YEARS due on 02/20/2017 DIABETIC FOOT EXAM due on 12/22/2017 HPV EVERY 5 YEARS due on 01/24/2019 STATIN MED ADHERENCE due on 10/10/2018 DIABETES MED ADHERENCE due on 10/10/2018 HBA1C due on 11/30/2018 URINE ALBUMIN:CREATININE RATIO due on 08/02/2019 DILATED RETINAL EXAM due on 09/04/2019 ONE PNEUMOVAX PRIOR TO AGE 65 Completed INFLUENZA Completed HEPATITIS C SCREENING Completed Data reviewed [facility] Records ASSESSMENT/PLAN: 1. Hospital discharge follow-up - ICD9: V67.59, ICD10: Z09 (primary diagnosis) - follow up in 3 months 2. 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 Charcot foot due to diabetes mellitus (HCC) - ICD9: 250.60, 713.5, ICD10: E11.610 - Cont f/u with Dr. Allen 4. Diabetic ulcer of left foot associated with diabetes mellitus due to underlying condition, limited to breakdown of skin, unspecified part of foot (HCC) - ICD9: 249.80, 707.15, ICD10: E08.621, L97.521 - cont f/u with Dr. Allen 5. NSTEMI (non-ST elevated myocardial infarction) (HCC) - ICD9: 410.70, ICD10: I21.4 - Cardiology - Take 80 mg only d/c Crestor 6. Sciatic nerve pain, unspecified laterality - ICD9: 724.3, ICD10: M54.30 - Stretching, Tens unit - Monitor 7. Restless legs syndrome (RLS) - ICD9: 333.94, ICD10: G25.81 - Continue current medication regimen. 8. Vaginal yeast infection - ICD9: 112.1, ICD10: B37.3 Diflucan ordered 3 mo f/u I agree with the Chief Complaint, ROS, and Past Histories independently gathered by the clinical credit support specialist and the remaining scribed note accurately describes my personal service to the patient. Alessandro Eric MD The documentation for this note was completed by Kaylyn Harrison Ma acting as scribe for Alessandro Eric MD. October 09, 2018 10:30 AM. CNOV Observed: 10/09/2018 Status: COMPLETED Source: [facility] 10:00 AM [facility] REPOSITORY Office Visit (FAMPWS) DIONY CARRILLO ([id number]) 1965 F Date Time Provider Department 10/09/18 10:00 AM ALESSANDRO ERIC FAMPWS During your visit today, we recorded the following information about you: Pulse Respiration Blood pressure 84/minute 20/minute 132/76 Alessandro Eric MD 10/09/2018 11:23 AM Signed Chief Complaint Patient presents with: Hospital Follow Up HPI Diony Carrillo is a 53 year old female who presents here today for a Hospital follow up. Pt here today for multiple hospital admission follow ups. Pt originally in [facility] hospital from 08/30/18 due to Left foot DM infection. Pt was in skilled for a while for foot care. Pt then back in [facility] ER due to chest pain and found to have OH, STEMI from 09/20/18-09/22/18 and then re-admitted from 09/23/18-09/24/18. Pt now and was living in [place] and has plans to return once she is better here. She lives at home alone, but daughter is around. She is non-weightbearing and using crutches and wheelchair to ambulate. DM - Checking sugars 1-2 daily with FBS ranging in the 200's. Denies any hypoglycemic events. Admits to neuropathy in bilateral feet. Following with Dr. Allen once a week due to prior admission with a foot infection. Pain - In a lot of pain today rated a 7/10 today. Notes having a flare up in sciatic symptoms. Smacking her legs on exam due to pain and moaning. States that she feels nauseated. Pain is throbbing and aching. Started last night and has not improved. RLS are not controlled and on Requip 3 mg 2 tabs at bedtime. When pain is extreme she is using Oxycodone 5 mg at bedtime to control this. She notes that she only has 2 pills left and needs refills. Taking Gabapentin 800 mg TID for pain. Chest pain - During nursing intake pt starts grabbing her chest and saying she's having chest pain with radiation down into her left arm. Declined wanted to go to ER at the moment due to feeling its stress from all over body pain. Went away shortly there after. Following with Dr. Jean Baptiste just last week with no visit until January. Pt states that she was not given Nitro but taking Baby Aspirin 81 mg. Notes that in the hospital she was given 4 baby aspirin. Yeast infection - Needs another prescription for Diflucan for a yeast infection. Past medical history, appointments, medications, allergies reviewed. Previous Medical History PAST MEDICAL HISTORY Diagnosis Date - Chronic depressive personality disorder - Degenerative disc disease - Diabetes mellitus without mention of complication Diabetes mellitus - Fallen arches (Broken) on both sides - History of heart attack 09/20/2018 - NSTEMI (non-ST elevated myocardial infarction) (HCC) 09/2018 - Polyneuropathy in diabetes(357.2) - Restless legs syndrome (RLS) Previous Surgical History PAST SURGICAL HISTORY Procedure Laterality Date - DELIVERY ONLY , low cervical - EGD W/O OR W/BRUSH/WASH 05/10/2012 EGD - LIGATE FALLOPIAN TUBE Tubal ligation - PAST SURGICAL HISTORY OF removal right 5th metatarsal - PAST SURGICAL HISTORY OF 09/21/2018 cardiac stent x 2 - PAST SURGICAL HISTORY OF N/A 09/2018 Heart Cath with stent placement - PICC LINE INSERT/CONSULT 06/14/2014 - REPAIR ROTATOR CUFF,ACUTE 1996 Rotator cuf repair right, Dr Alvarado - [facility] N/CARPAL TUNNEL SURG 1996 Carpal tunnel decomp, right, Dr Alvarado - [facility] N/CARPAL TUNNEL SURG 2008 Carpal tunnel decomp, LEFT Family History FAMILY HISTORY Problem Relation Age of Onset - Hypertension Mother - Diabetes Mother - Stroke Mother - Diabetes Sister - Heart Attack Sister triple bypass - Diabetes Brother X-3 - Heart Attack Brother triple bypass - other (Other) Brother blind AND deaf - Heart Brother X-3 - Heart Attack Brother - Breast Cancer Paternal Aunt x5 - Cancer Brother testicular, - Heart Attack Brother triple bypass Patient Allergies ALLERGIES Allergen Reactions - Oxycontin [Oxycodon* itch - Penicillins Hives - Requip [Ropinirole] Intolerance Vomiting, panic attacks, itching Current Medications Current Outpatient Prescriptions on File Prior to Visit: ascorbic acid, vitamin C, (VITAMIN C) 500 mg tablet Take 1 tablet by mouth twice daily. Take with iron (ferrous sulfate). blood sugar diagnostic (ACCU-CHEK MGEAN PLUS TEST STRP) test strip Check blood [...] MONITORING) monitoring kit 1 Each as needed. docusate sodium (COLACE) 100 mg capsule Take 1 capsule by mouth twice daily as needed for Constipation. gabapentin (NEURONTIN) 800 mg tablet Take 1 tablet by mouth three times daily for 30 days. insulin aspart U-100 (NOVOLOG FLEXPEN U-100 INSULIN) 100 unit/mL inpn Inject 20 Units subcutaneously three times daily with meals. insulin needles, DISPOSABLE, (PEN NEEDLE) 31 gauge x 5/16 ndle Use as directed four times daily lactobacillus rhamnosus (CULTURELLE) 10 billion cell capsule Take 1 capsule by mouth once daily for 7 days. Lancets (ACCU-CHEK MULTICLIX LANCET) lancets Check blood sugar readings 2-3 times daily. Insulin dependent. Dx: E11.40 Lancets lancets Test 2-3 times a day promethazine (PHENERGAN) 25 mg tablet Take 1 tablet by mouth every 6 hours as needed. rOPINIRole Hydrochloride 3 mg tablet Take 1 tablet by mouth twice daily. rosuvastatin (CRESTOR) 40 mg tablet Take 1 tablet by mouth once daily. simethicone, chewable (MYLICON) 80 mg chewable tablet Take 1 tablet by mouth four times daily as needed (GI upset). magnesium oxide (MAG-OX) 400 mg tablet Take 1 tablet by mouth twice daily. oxyCODONE IR (ROXICODONE) 5 mg immediate release tablet Take 1 tablet by mouth every 8 hours as needed. No current facility-administered medications on file prior to visit. 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 Lungs: lungs clear to auscultation. No wheezing, rhonchi, rales. Heart: RRR without murmur, gallop, or rubs. No ectopy. Health Maintenance List ANNUAL PCP TEAM CHRONIC DISEASE VISIT due on 1983 DTAP,TDAP,TD(1 - Tdap) due on 03/11/2010 COLORECTAL CANCER SCREENING,SEE MODIFIER due on 2015 MAMMOGRAM due on 03/12/2016 LDL CHOLESTEROL due on 12/31/2016 PAP EVERY 5 YEARS due on 02/20/2017 DIABETIC FOOT EXAM due on 12/22/2017 HPV EVERY 5 YEARS due on 01/24/2019 STATIN MED ADHERENCE due on 10/10/2018 DIABETES MED ADHERENCE due on 10/10/2018 HBA1C due on 11/30/2018 URINE ALBUMIN:CREATININE RATIO due on 08/02/2019 DILATED RETINAL EXAM due on 09/04/2019 ONE PNEUMOVAX PRIOR TO AGE 65 Completed INFLUENZA Completed HEPATITIS C SCREENING Completed Data reviewed [facility] Records ASSESSMENT/PLAN: 1. Hospital discharge follow-up - ICD9: V67.59, ICD10: Z09 (primary diagnosis) - follow up in 3 months 2. 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 Charcot foot due to diabetes mellitus (HCC) - ICD9: 250.60, 713.5, ICD10: E11.610 - Cont f/u with Dr. Allen 4. Diabetic ulcer of left foot associated with diabetes mellitus due to underlying condition, limited to breakdown of skin, unspecified part of foot (HCC) - ICD9: 249.80, 707.15, ICD10: E08.621, L97.521 - cont f/u with Dr. Allen 5. NSTEMI (non-ST elevated myocardial infarction) (HCC) - ICD9: 410.70, ICD10: I21.4 - Cardiology - Take 80 mg only d/c Crestor 6. Sciatic nerve pain, unspecified laterality - ICD9: 724.3, ICD10: M54.30 - Stretching, Tens unit - Monitor 7. Restless legs syndrome (RLS) - ICD9: 333.94, ICD10: G25.81 - Continue current medication regimen. 8. Vaginal yeast infection - ICD9: 112.1, ICD10: B37.3 Diflucan ordered 3 mo f/u I agree with the Chief Complaint, ROS, and Past Histories independently gathered by the clinical credit support specialist and the remaining scribed note accurately describes my personal service to the patient. Alessandro Eric MD The documentation for this note was completed by Kaylyn Harrison Ma acting as scribe for Alessandro Eric MD. October 09, 2018 10:30 AM. Kaylyn Harrison Ma 10/09/2018 10:56 AM Signed Stop taking Crestor only Atorvastatin 80 mg Referring Provider: SELF [[id number]] Allergies As of Date: 10/09/2018 Noted Allergy Reaction OXYCONTIN (OXYCODONE HCL) 09/27/2007 Comments: itch PENICILLINS 06/02/2007 4 - Hives REQUIP (ROPINIROLE) 11/18/2015 5 - Intolerance Comments: Vomiting, panic attacks, itching Date Reviewed: 10/09/2018 Reviewed by: Kaylyn Harrison Ma - Fully Assessed Reason for Visit: Hospital Follow Up [177] Primary Visit Diagnosis:Hospital discharge follow-up [Z09] Other Visit Diagnoses:Uncontrolled type 2 diabetes with neuropathy ([facility]) [E11.40, E11.65] Charcot foot due to diabetes mellitus ([facility]) [E11.610] Diabetic ulcer of left foot associated with diabetes mellitus due to underlying condition, limited to breakdown of skin, unspecified part of foot ([facility]) [E08.621, L97.521] NSTEMI (non-ST elevated myocardial infarction) ([facility]) [I21.4] Sciatic nerve pain, unspecified laterality [M54.30] Restless legs syndrome (RLS) [G25.81] Vaginal yeast infection [B37.3] Order(s):fluconazole (DIFLUCAN) 150 mg tabletTake 1 tablet by mouth one time only for 1 dose. Repeat in 3 days as needed.Disp: 2 tabletRfl: 0 Prescriptions as of 10/09/2018 Sig: ASCORBIC ACID (VITAMIN C) 500* Take 1 tablet by mouth twice * ATORVASTATIN 80 MG TABLET AT BEDTIME BLOOD SUGAR DIAGNOSTIC STRIPS Check blood sugar readings 2-* BLOOD SUGAR DIAGNOSTIC STRIPS Test blood sugar(s) 3- 4 times* BLOOD SUGAR DIAGNOSTIC STRIPS Use as instructed. Tests bloo* BLOOD-GLUCOSE METER 1 Units as directed. Dx: E11.* BLOOD-GLUCOSE METER KIT 1 Each as needed. CLOPIDOGREL 75 MG TABLET DAILY DOCUSATE SODIUM 100 MG CAPSULE Take 1 capsule by mouth twice* ESCITALOPRAM 10 MG TABLET DAILY GABAPENTIN 800 MG TABLET Take 1 tablet by mouth three * INSULIN ASPART U-100 100 UNI* Inject 20 Units subcutaneousl* PEN NEEDLE, DIABETIC 31 GAUGE* Use as directed four times da* ISOSORBIDE MONONITRATE ER 30 * DAILY LACTOBACILLUS RHAMNOSUS GG 10* Take 1 capsule by mouth once * LANCETS Check blood sugar readings 2-* LANCETS Test 2-3 times a day LISINOPRIL 5 MG TABLET Take 1 tablet by mouth once d* METOPROLOL TARTRATE 25 MG TAB* Take 12.5 mg by mouth twice d* PROMETHAZINE 25 MG TABLET Take 1 tablet by mouth every * PROMETHAZINE 25 MG TABLET EVERY 6 HOURS NEEDED PRN F* ROPINIROLE 3 MG TABLET Take 1 tablet by mouth twice * SIMETHICONE 80 MG CHEWABLE TA* Take 1 tablet by mouth four t* FLUCONAZOLE 150 MG TABLET Take 1 tablet by mouth one ti* INSULIN DETEMIR (U-100) 100 U* Inject 30 units subcutaneousl* MAGNESIUM OXIDE 400 MG (241.3* Take 1 tablet by mouth twice * OXYCODONE 5 MG TABLET Take 1 tablet by mouth every * Problem List As Of Date 10/09/2018 Noted Resolved Reaction, adjustment, with depressed mood, [...] INVALID FOR* Other instructions from your clinician: Stop taking Crestor only Atorvastatin 80 mg Prescriptions ordered this encounter Disp Refills Start End FLUCONAZOLE 150 MG TABLET 2 ta* 0 10/09/2018 10/09/2018 Route: ORAL Sig: Take 1 tablet by mouth one time only for 1 dose. Repeat in 3 days as needed. Medications Discontinued During This Encounter acetaminophen (TYLENOL) 325 mg tablet 09/05/2018 10/09/2018 Class: Med Update Route: ORAL Sig: Take 2 tablets by mouth every 6 hours as needed. Disc: Discontinued by Patient carboxymethylcellulose sodium (CELLU* 09/05/2018 10/09/2018 Class: Med Update Route: BOTH EYES Sig: Use 1 Drop in both eyes four times daily. Patient not taking: Reported on 09/29/2018 Disc: Discontinued by Patient ergocalciferol, vitamin D2, (DRISDOL* 12 c* 0 03/09/2017 10/09/2018 Route: ORAL Sig: Take 1 capsule by mouth once each week. Disc: Course of therapy completed clopidogrel (PLAVIX) 75 mg tablet 10/09/2018 Class: Historical Med Route: ORAL Sig: Take 75 mg by mouth once daily. Disc: Duplicate Entry insulin glargine (LANTUS SOLOSTAR U-* 09/05/2018 10/09/2018 Class: Med Update Sig: Inject 30 units subcutaneously in the AM and 35 units in the PM Disc: Changing Therapy/Dosage Form omeprazole (PRILOSEC) 20 mg capsule 30 c* 11 06/14/2017 10/09/2018 Route: ORAL Sig: Take 1 capsule by mouth daily before breakfast. 1/2 hr before meal. Disc: Discontinued by Patient psyllium (KONSYL) packet 08/28/2018 10/09/2018 Class: Historical Med Route: ORAL Sig: Take 1 Packet by mouth once daily. Disc: Discontinued by Patient rosuvastatin (CRESTOR) 40 mg tablet 90 t* 1 06/10/2017 10/09/2018 Route: ORAL Sig: Take 1 tablet by mouth once daily. Disc: Reason for discontinue is not on file. Disposition: Return in about 3 months (around 01/07/2019). Follow-up and Disposition History Recorded Encounter Status:Closed by ALESSANDRO ERIC MD on 10/09/18 PROGRESS Observed: 10/05/2018 Status: COMPLETED Source: [facility] 3:47 PM [facility] REPOSITORY HNO ID: [id number] Author: Pasha Cortes (Rn) Service: (none) Author Type: Registered Nurse Type: Progress Notes Filed: 10/05/2018 4:14 PM Note Text: PRIMARY CARE COORDINATION PRE-VISIT ASSESSMENT Provider Action/FYI: Call to Pt left a vm to check on symptoms, status. Patient has been identified by name and date of . Next Office Visit: 10/09/2018 Last Office Visit Plan/Progress: 06/10/2017 Patient Concerns: Medication Review: Address in future encounter Health Maintenance: ANNUAL PCP TEAM CHRONIC DISEASE VISIT due on 1983 DTAP,TDAP,TD(1 - Tdap) due on 03/11/2010 COLORECTAL CANCER SCREENING,SEE MODIFIER due on 2015 MAMMOGRAM due on 03/12/2016 LDL CHOLESTEROL due on 12/31/2016 PAP EVERY 5 YEARS due on 02/20/2017 DIABETIC FOOT EXAM due on 12/22/2017 HPV EVERY 5 YEARS due on 01/24/2019 Interventions/PCC Plan of Care: Early symptoms awareness to prevent complications Thank you, Signature Sophia Pak, ABIGAIL October 05, 2018 CNPTOUTREACH Observed: 10/05/2018 Status: COMPLETED Source: [facility] 12:00 AM [facility] REPOSITORY Patient Outreach (FAMPWS) DIONY CARRILLO ([id number]) 1965 F Date Time Provider Department 10/05/18 PASHA CORTES (RN) FAMPWS During your visit today, we recorded the following information about you: Sophia Pak RN 10/05/2018 4:14 PM Signed PRIMARY CARE COORDINATION PRE-VISIT ASSESSMENT Provider Action/FYI: Call to Pt left a vm to check on symptoms, status. Patient has been identified by name and date of . Next Office Visit: 10/09/2018 Last Office Visit Plan/Progress: 06/10/2017 Patient Concerns: Medication Review: Address in future encounter Health Maintenance: ANNUAL PCP TEAM CHRONIC DISEASE VISIT due on 1983 DTAP,TDAP,TD(1 - Tdap) due on 03/11/2010 COLORECTAL CANCER SCREENING,SEE MODIFIER due on 2015 MAMMOGRAM due on 03/12/2016 LDL CHOLESTEROL due on 12/31/2016 PAP EVERY 5 YEARS due on 02/20/2017 DIABETIC FOOT EXAM due on 12/22/2017 HPV EVERY 5 YEARS due on 01/24/2019 Interventions/PCC Plan of Care: Early symptoms awareness to prevent complications Thank you, Signature Sophia Pak RN October 05, 2018 Allergies As of Date: 10/05/2018 Noted Allergy Reaction OXYCONTIN (OXYCODONE HCL) 09/27/2007 Comments: itch PENICILLINS 06/02/2007 4 - Hives REQUIP (ROPINIROLE) 11/18/2015 5 - Intolerance Comments: Vomiting, panic attacks, itching Date Reviewed: 09/29/2018 Reviewed by: Mary Anne Chacon RN - Fully Assessed 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 [[id number]] Prescriptions as of 10/05/2018 Sig: ACETAMINOPHEN 325 MG TABLET Take 2 [...] 1 Drop in both eyes four * Patient not taking: Reported on 09/29/2018 CLINDAMYCIN HCL 300 MG CAPSULE Take 1 capsule by mouth three* CLOPIDOGREL 75 MG TABLET Take 75 mg by mouth once elissa* DOCUSATE SODIUM 100 MG CAPSULE Take 1 capsule by mouth twice* ERGOCALCIFEROL (VITAMIN D2) 5* Take 1 capsule by mouth once * GABAPENTIN 800 MG TABLET Take 1 tablet by mouth three * INSULIN ASPART U-100 100 UNI* Inject 20 Units subcutaneousl* INSULIN GLARGINE (U-100) 100 * Inject 30 units subcutaneousl* PEN NEEDLE, DIABETIC 31 GAUGE* Use as directed four times da* LACTOBACILLUS RHAMNOSUS GG 10* Take 1 capsule by mouth once * LANCETS Check blood sugar readings 2-* LANCETS [...] four t* Problem List As Of Date 10/05/2018 Noted Resolved Reaction, adjustment, with depressed mood, [...] FOR* Encounter Status:Closed by SOPHIA PAK on 10/05/18 12 LEAD ELECTROCARDIOGRAM Observed: 10/04/2018 Status: F Source: [facility] 2:39 PM [facility] [place] [place] REPOSITORY [facility] Cardiovascular Services [address] [place] [id number] Lead EKG 09/28/18 1659 MR#: [id number] Acct: [id number] Name: DIONY CARRILLO Rep #: [id number] : 1965 53 From: Gustavo Ha MD Attending Dr: Status: DEP ER Ordering Dr: Henna Lou MD Date: 09/28/18 Location: ED Sex: F C Admitted: Test Reason : CP Blood Pressure : / mmHG Vent. Rate : 071 BPM Atrial Rate : 071 BPM P-R Int : 150 ms QRS Dur : 086 ms QT Int : 404 ms P-R-T Axes : 039 024 121 degrees QTc Int : 439 ms Normal sinus rhythm Septal infarct , age undetermined T wave abnormality, consider anterolateral ischemia Abnormal ECG Confirmed by GUSTAVO HA ([id number]), development editor MARLON GALEANA ([id number]) on 10/04/2018 2:39:28 PM Referred By: RERE Confirmed By:GUSTAVO HA 10/04/18 1439 Date Gustavo Ha MD CC: Henna Lou MD; Alessandro Eric MD Signed PROGRESS Observed: 09/29/2018 Status: COMPLETED Source: [facility] 10:46 AM [facility] REPOSITORY O ID: [id number] Author: Sendy Allen Service: (none) Author Type: Physician Type: Progress Notes Filed: 09/29/2018 12:13 PM Note Text: Follow up podiatric office visit for: Chief Complaint: This 53 year old who presents for follow up:ulceration of left foot and callus to right foot. Patient has been applying vanessa to left foot. She has been wearing the boot to left lower extremity. She has been applying lotion to her right foot. Of note, patient s/p cardiac stenting due to experiencing heart attack last week. She states she has developed a small bump to her left foot. She is unsure if she bumped this on her bed due to restless leg. She has no other complaints. PAIN EVALUATION No data found. Hemoglobin A1C Date Value Ref Range Status 08/30/2018 11.7 (H) 4.3 - 5.6 % Final Comment: [place] [employer] guidelines indicate that patients with [...] Fallen arches (Broken) on both sides - History of heart attack 09/20/2018 - Polyneuropathy in diabetes(357.2) - Restless legs [...] MONITORING) monitoring kit 1 Each as needed. clopidogrel (PLAVIX) 75 mg tablet Take 75 mg by mouth once daily. docusate sodium (COLACE) 100 mg capsule Take 1 capsule by mouth twice daily as needed for Constipation. ergocalciferol, vitamin D2, (DRISDOL) 50,000 unit capsule Take 1 capsule by mouth once each week. gabapentin (NEURONTIN) 800 mg tablet Take 1 [...] ndle Use as directed four times daily lactobacillus rhamnosus (CULTURELLE) 10 billion cell capsule Take 1 capsule by mouth once daily for 7 days. Lancets (ACCU-CHEK MULTICLIX LANCET) lancets Check blood sugar readings 2-3 times daily. Insulin dependent. Dx: E11.40 Lancets lancets Test 2-3 times a day magnesium oxide (MAG-OX) 400 mg tablet Take 1 tablet by mouth twice daily. omeprazole (PRILOSEC) 20 mg capsule Take 1 capsule by mouth daily before breakfast. 1/2 hr before meal. promethazine (PHENERGAN) 25 mg tablet Take 1 tablet by mouth every 6 hours as needed. rOPINIRole Hydrochloride 3 mg tablet Take 1 tablet by mouth twice daily. rosuvastatin (CRESTOR) 40 mg tablet Take 1 tablet by mouth once daily. simethicone, chewable (MYLICON) 80 mg chewable tablet Take 1 tablet by mouth four times daily as needed (GI upset). carboxymethylcellulose sodium (CELLUVISC) 1 % dlgl Use 1 Drop in both eyes four times daily. (Patient not taking: Reported on 09/29/2018 ) clindamycin (CLEOCIN) 300 mg capsule Take 1 capsule by mouth three times daily for 7 days. oxyCODONE IR (ROXICODONE) 5 mg immediate release tablet Take 1 tablet by mouth every 8 hours as needed. psyllium (KONSYL) packet Take 1 Packet by mouth once daily. No current facility-administered medications for this visit. ALLERGIES Allergen Reactions - Oxycontin [Oxycodon* itch - Penicillins Hives - Requip [Ropinirole] Intolerance Vomiting, panic attacks, itching PAST SURGICAL HISTORY Procedure Laterality Date - DELIVERY ONLY , low cervical - EGD W/O OR W/BRUSH/WASH 05/10/2012 EGD - LIGATE FALLOPIAN TUBE Tubal ligation - PAST SURGICAL HISTORY OF removal right 5th metatarsal - PAST SURGICAL HISTORY OF 09/21/2018 cardiac stent x 2 - PICC LINE INSERT/CONSULT 06/14/2014 - REPAIR [...] OBJECTIVE: NVSI unchanged from previous visit. Dermatological: Hyperkeratosis is present to right foot. No ulceration is present to right foot. Skin is well hydrated to right foot. There is ulceration to left lateral foot with granular base. The periphery of ulceration has hyperkeratotic tissue and dryness. The ulceration has no drainage or signs of infection. ulceratoin measures 2.1 cm x 1.5 cm. There is severe dryness and callus of left heel. No signs of infection. There is small raised lesion of left foot but no signs of fluctuance or signs of infection. This was debrided and she has small open sore without signs of infection. 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 History and physical examination completed today. 2. Patient was examined and informed of current findings 3. Callus to right foot debrided with 15 blade. Continue with lotion and diabetic shoes 4. Ulceration debrided to left foot of nonviable tissue. Continue with vanessa and boot. I had applied for epifix but her insurance card that she provided was not up to date so will resubmit. Ulceration does appear to be improving. 5. Will order xray of left foot 6. Patient to f/u in 2 weeks 7. I am out of office next week. Offered referral to wound center but patient declined. She wants to f/u here. She will present to hospital if she has any issues. Sendy Allen DPM PROGRESS Observed: 09/29/2018 Status: COMPLETED Source: [facility] 10:18 AM [facility] REPOSITORY HNO ID: [id number] Author: Lilian Reynaga (Rt) Service: (none) Author Type: Fire Hydrant Mechanic Type: Progress Notes Filed: 09/29/2018 10:19 AM Note Text: Radiology Service Progress Note PATIENT NAME: Diony Carrillo DATE OF SERVICE: September 29, 2018 TIME: 10:19 AM PATIENT IDENTITY VERIFICATION COMPLETED USING TWO (2) METHODS: Patient confirmed name verbally and Date of . PATIENT GENDER DATA: Female. status: : No status: NO. PATIENT RELEVANT IMPLANT DATA REVIEWED: Not Applicable RADIOLOGY DEPARTMENT: General X-ray: Exam(s) Completed: Lower Extremity X-Ray(s): Foot, Left: PERIPHERAL IV DATA: Not applicable SIGNED BY: RT Juhi September 29, 2018 10:19 AM XR FOOT 3V AP/LAT/OBL Observed: 09/29/2018 Status: F Source: [facility] 10:15 AM [facility] REPOSITORY * * *Final Report* * * DATE OF EXAM: Sep 29 2018 10:15AM [id number] [id number] - XR FOOT 3V AP/LAT/OBL LT / PROCEDURE REASON: multiple diagnoses * * * * Physician Interpretation * * * * HISTORY: 53-YEAR-OLD FEMALE WITH Diabetic ulcer of left midfoot associated with type 2 diabetes mellitus, with fat layer exposed (HCC) Diabetic ulcer of left midfoot associated with type 2 diabetes mellitus, with fat layer exposed (HCC) Swelling of ankle joint, right . 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 No new periosteal reaction. No lytic lesions. No radiographic evidence of osteomyelitis. IMPRESSION: NO EVIDENCE OF OSTEOMYELITIS, NO CHANGE COMPARED TO THE PREVIOUS EXAM. Car Designer: PSCB Transcribe Date/Time: Sep 29 2018 5:28P Dictated by : AMBROSIO IVEY MD This examination was interpreted and the report reviewed and electronically signed by: AMBROSIO IVEY MD on Sep 29 2018 5:30PM EST [id number] PROGRESS Observed: 09/29/2018 Status: COMPLETED Source: [facility] 9:21 AM [facility] REPOSITORY HNO ID: [id number] Author: Mary Anne Chacon RN Service: (none) Author Type: (none) Type: Progress Notes Filed: 09/29/2018 12:13 PM Note Text: AMB ROOMING INTAKE FLOWSHEET DATA Risk Screening Do you have concerns about personal safety or safety in the home?: No Using prism daily. Home health nurses come in daily to change her dressing. Still having scant drainage. Denies having pain. Mary Anne Chacon RN CNOV Observed: 09/29/2018 Status: COMPLETED Source: [facility] 8:55 AM [facility] REPOSITORY Office Visit (PODIWS) DIONY CARRILLO ([id number]) 1965 F Date Time Provider Department 09/29/18 8:55 AM SENDY ALLEN During your visit today, we recorded the following information about you: Mayr Anne Chacon RN 09/29/2018 12:13 PM Signed AMB ROOMING INTAKE FLOWSHEET DATA Risk Screening Do you have concerns about personal safety or safety in the home?: No Using prism daily. Home health nurses come in daily to change her dressing. Still having scant drainage. Denies having pain. Mary Anne Carbajal RN 09/29/2018 9:47 AM Addendum Apply Vanessa daily to L foot. Cover with a 4x4 and secure with alison. Continue boot on L foot. Apply lotion daily. Apply bandaid and neosporin to smaller wound on L foot. Sendy Allen DPM 09/29/2018 12:13 PM Signed Follow up podiatric office visit for: Chief Complaint: This 53 year old who presents for follow up:ulceration of left foot and callus to right foot. Patient has been applying vanessa to left foot. She has been wearing the boot to left lower extremity. She has been applying lotion to her right foot. Of note, patient s/p cardiac stenting due to experiencing heart attack last week. She states she has developed a small bump to her left foot. She is unsure if she bumped this on her bed due to restless leg. She has no other complaints. PAIN EVALUATION No data found. Hemoglobin A1C Date Value Ref Range Status 08/30/2018 11.7 (H) 4.3 - 5.6 % Final Comment: [place] [employer] guidelines indicate that patients with [...] Fallen arches (Broken) on both sides - History of heart attack 09/20/2018 - Polyneuropathy in diabetes(357.2) - Restless legs [...] MONITORING) monitoring kit 1 Each as needed. clopidogrel (PLAVIX) 75 mg tablet Take 75 mg by mouth once daily. docusate sodium (COLACE) 100 mg capsule Take 1 capsule by mouth twice daily as needed for Constipation. ergocalciferol, vitamin D2, (DRISDOL) 50,000 unit capsule Take 1 capsule by mouth once each week. gabapentin (NEURONTIN) 800 mg tablet Take 1 [...] ndle Use as directed four times daily lactobacillus rhamnosus (CULTURELLE) 10 billion cell capsule Take 1 capsule by mouth once daily for 7 days. Lancets (ACCU-CHEK MULTICLIX LANCET) lancets Check blood sugar readings 2-3 times daily. Insulin dependent. Dx: E11.40 Lancets lancets Test 2-3 times a day magnesium oxide (MAG-OX) 400 mg tablet Take 1 tablet by mouth twice daily. omeprazole (PRILOSEC) 20 mg capsule Take 1 capsule by mouth daily before breakfast. 1/2 hr before meal. promethazine (PHENERGAN) 25 mg tablet Take 1 tablet by mouth every 6 hours as needed. rOPINIRole Hydrochloride 3 mg tablet Take 1 tablet by mouth twice daily. rosuvastatin (CRESTOR) 40 mg tablet Take 1 tablet by mouth once daily. simethicone, chewable (MYLICON) 80 mg chewable tablet Take 1 tablet by mouth four times daily as needed (GI upset). carboxymethylcellulose sodium (CELLUVISC) 1 % dlgl Use 1 Drop in both eyes four times daily. (Patient not taking: Reported on 09/29/2018 ) clindamycin (CLEOCIN) 300 mg capsule Take 1 capsule by mouth three times daily for 7 days. oxyCODONE IR (ROXICODONE) 5 mg immediate release tablet Take 1 tablet by mouth every 8 hours as needed. psyllium (KONSYL) packet Take 1 Packet by mouth once daily. No current facility-administered medications for this visit. ALLERGIES Allergen Reactions - Oxycontin [Oxycodon* itch - Penicillins Hives - Requip [Ropinirole] Intolerance Vomiting, panic attacks, itching PAST SURGICAL HISTORY Procedure Laterality Date - DELIVERY ONLY , low cervical - EGD W/O OR W/BRUSH/WASH 05/10/2012 EGD - LIGATE FALLOPIAN TUBE Tubal ligation - PAST SURGICAL HISTORY OF removal right 5th metatarsal - PAST SURGICAL HISTORY OF 09/21/2018 cardiac stent x 2 - PICC LINE INSERT/CONSULT 06/14/2014 - REPAIR [...] OBJECTIVE: NVSI unchanged from previous visit. Dermatological: Hyperkeratosis is present to right foot. No ulceration is present to right foot. Skin is well hydrated to right foot. There is ulceration to left lateral foot with granular base. The periphery of ulceration has hyperkeratotic tissue and dryness. The ulceration has no drainage or signs of infection. ulceratoin measures 2.1 cm x 1.5 cm. There is severe dryness and callus of left heel. No signs of infection. There is small raised lesion of left foot but no signs of fluctuance or signs of infection. This was debrided and she has small open sore without signs of infection. 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 History and physical examination completed today. 2. Patient was examined and informed of current findings 3. Callus to right foot debrided with 15 blade. Continue with lotion and diabetic shoes 4. Ulceration debrided to left foot of nonviable tissue. Continue with vanessa and boot. I had applied for epifix but her insurance card that she provided was not up to date so will resubmit. Ulceration does appear to be improving. 5. Will order xray of left foot 6. Patient to f/u in 2 weeks 7. I am out of office next week. Offered referral to wound center but patient declined. She wants to f/u here. She will present to hospital if she has any issues. Sendy Allen DPM Referring Provider: SENDY ALLEN [[id number]] Allergies As of Date: 09/29/2018 Noted Allergy Reaction OXYCONTIN (OXYCODONE HCL) 09/27/2007 Comments: itch PENICILLINS 06/02/2007 4 - Hives REQUIP (ROPINIROLE) 11/18/2015 5 - Intolerance Comments: Vomiting, panic attacks, itching Date Reviewed: 09/29/2018 Reviewed by: Mary Anne Chacon RN - Fully Assessed Reason for Visit: Established Patient [175] Cmt: 1 week follow up ulcer left lateral foot Primary Visit Diagnosis:Other diabetic neurological complication associated with type 2 diabetes mellitus (HCC) [E11.49] Other Visit Diagnoses:Diabetic ulcer of left midfoot associated with type 2 diabetes mellitus, with fat layer exposed ([facility]) [E11.621, L97.422] Swelling of ankle joint, right [M25.471] Order(s):XR FOOT GENERAL 3V AP/LAT/OBL LT [[id number]] Order #: [id number] FUTURE clindamycin (CLEOCIN) 300 mg capsuleTake 1 capsule by mouth three times daily for 7 days.Disp: 21 capsuleRfl: 0 Prescriptions as of 09/29/2018 Sig: ACETAMINOPHEN 325 MG TABLET Take 2 [...] BLOOD-GLUCOSE METER KIT 1 Each as needed. CLOPIDOGREL 75 MG TABLET Take 75 mg by mouth once elissa* DOCUSATE SODIUM 100 MG CAPSULE Take 1 capsule by mouth twice* ERGOCALCIFEROL (VITAMIN D2) 5* Take 1 capsule by mouth once * GABAPENTIN 800 MG TABLET Take 1 tablet by mouth three * INSULIN ASPART U-100 100 UNI* Inject 20 Units subcutaneousl* INSULIN GLARGINE (U-100) 100 * Inject 30 units subcutaneousl* PEN NEEDLE, DIABETIC 31 GAUGE* Use as directed four times da* LACTOBACILLUS RHAMNOSUS GG 10* Take 1 capsule by mouth once * LANCETS Check blood sugar readings 2-* LANCETS Test 2-3 times a day MAGNESIUM OXIDE 400 MG (241.3* Take 1 tablet by mouth twice * OMEPRAZOLE 20 MG CAPSULE,JR* Take 1 capsule by mouth daily* PROMETHAZINE 25 MG TABLET Take 1 tablet by mouth every * ROPINIROLE 3 MG TABLET Take 1 tablet by mouth twice * ROSUVASTATIN 40 MG TABLET Take 1 tablet by mouth once d* SIMETHICONE 80 MG CHEWABLE TA* Take 1 tablet by mouth four t* CARBOXYMETHYLCELLULOSE SODIUM* Use 1 Drop in both eyes four * Patient not taking: Reported on 09/29/2018 CLINDAMYCIN HCL 300 MG CAPSULE Take 1 capsule by mouth three* OXYCODONE 5 MG TABLET Take 1 tablet by mouth every * PSYLLIUM ORAL PACKET Take 1 Packet by mouth once d* Medication notes this encounter INSULIN GLARGINE (U-100) 100 UNIT/ML (3 ML) SUBCUTANEOUS PEN >> Mary Anne Chacon RN 09/29/2018 9:13 AM >> MARY ANNE CHACON RN TueSep 29, 2018 9:13 AM Only am dose OXYCODONE 5 MG TABLET >> Mary Anne Chacon RN 09/29/2018 9:14 AM >> MARY ANNE CHACON RN TueSep 29, 2018 9:14 AM rx completed Problem List As Of Date 09/29/2018 Noted Resolved Reaction, adjustment, with depressed mood, [...] INVALID FOR* Other instructions from your clinician: Apply Vanessa daily to L foot. Cover with a 4x4 and secure with alison. Continue boot on L foot. Apply lotion daily. Apply bandaid and neosporin to smaller wound on L foot. Prescriptions ordered this encounter Disp Refills Start End CLINDAMYCIN HCL 300 MG CAPSULE 21 c* 0 09/29/2018 10/06/2018 Route: ORAL Sig: Take 1 capsule by mouth three times daily for 7 days. Encounter Status:Closed by SENDY ALLEN DPM on 09/29/18 EMERGENCY DEPARTMENT Observed: 09/28/2018 Status: F Source: [facility] SUMMARY 6:38 PM [facility] [place] [place] REPOSITORY [facility] Medical Records Department [address] [place] [address] Emergency Department Summary 09/28/18 1713 MR#: [id number] Acct: [id number] Name: DIONY CARRILLO Rep #: [id number] : 1965 53 From: Henna Lou MD PCP: Alessandro Eric MD Status: REG ER - ER Visit Summary Date of Service: 09/28/18 Chief Complaint: Dizziness History of Present Illness: The patient is a 53 F presenting with dizziness. She states she was at [facility] and had an episode of diarrhea. She states she felt dizzy like she was going to pass out. She denies vertigo. Denies chest pain or shortness of breath. She has nausea with no vomiting. She denies blood in her stool. She was recently admitted to the hospital from 09/20- 09/22/2018 and from 09/23-09/24/2018. She had PCI with DARA to mid LAD and DARA to proximal LAD on 09/21/2018. She was seen by Dr. Jean Baptiste today for follow-up visit. She states when she was seen today she was feeling well. She states she has been taking her medication as directed. Denies other complaints. Physical Examination: Vitals are stable. Patient is afebrile. Alert no acute distress. HEENT exam is unremarkable. Neck is supple. Lungs are clear and equal bilaterally. Heart is regular rate and rhythm. Abdomen is soft nontender nondistended. No guarding or rebound Extremities are unremarkable. Skin is warm and dry. No focal neurologic deficit. Remainder of exam is unremarkable. Emergency Department Course and Treatment: EKG is sinus rate of 71, lateral T wave inversion and Wellens pattern in V2, this is similar to previous. CBC normal except hemoglobin 10.9. Chemistries show glucose 120, BUN 24, creatinine 1.22. Previous creatinine was 0.86. Troponin 0.073 which is trending down. Chest x-ray shows no acute process. Orthostatic vital signs: pulse went from 73 to 78 and her blood pressure went from 99/55 to 90/60 with standing. She was dizzy with standing. She states she has had problems with dizziness with standing in the past and recently started new medications after her NSTEMI. She is on Imdur 30 mg once a day, lisinopril 5 mg once a day and metoprolol 12.5 mg twice a day. She states she just noticed today that she is supposed to cut her metoprolol in half and has been taking 25 mg twice a day instead of her prescribed 12.5 mg twice a day. Discussed with Dr. Jean Baptiste. He recommends discharge home. She will take her metoprolol as directed. Advised return to ED for worsening complaints. Disposition: Discharge home Impression: Dizziness This note was generated with [employer] dictation software. It may contain incorrect words, spelling, and punctuation that were not noted in review of the chart prior to signing ED Disposition - Plan for ED Patient: Chief Complaint: Dizziness Instructions: ED Dizziness [facility] Referrals: Alessandro Eric MD [Primary Care Provider] - What to do if you have Problems For any increased pain, shortness of breath, bleeding, nausea or vomiting, chest pain, or any unexpected problems, contact your Primary Care Provider. Call [email or web address] [facility] ([phone]) or report to the closest Emergency Room. Call 911 if necessary. 09/28/18 1584 <Electronically signed by Henna Lou MD> Date Henna Lou MD Cosigner Signature (If Indicated): Date CC: Alessandro Eric MD DISCHARGE INSTRUCTION Observed: 09/28/2018 Status: F Source: [place] 6:28 PM [facility] Medical Records Department [address] [place] [address] Discharge Instruction 09/28/181826 MR#: [id number] Acct: [id number] Name: DIONY CARRILLO Rep #: [id number] : 1965 53 From: Henna Lou MD PCP: Alessandro Eric MD Status: REG ER ED Disposition - Plan for ED Patient: Chief Complaint: Dizziness Instructions: ED Dizziness [facility] Referrals: Alessandro Eric MD [Primary Care Provider] - What to do if you have Problems For any increased pain, shortness of breath, bleeding, nausea or vomiting, chest pain, or any unexpected problems, contact your Primary Care Provider. Call [facility] ([phone]) or report to the closest Emergency Room. Call 911 if necessary. 09/28/181827 <Electronically signed by Henna Lou MD> Date Henna Lou MD Cosigner Signature (If Indicated): Date CC: Alessandro Eric MD CHEST 1 VIEW Observed: 09/28/2018 Status: F Source: [place] (PORTABLE) 5:10 PM [facility] Imaging Services [address] [place] [address] Chest 1 View (Portable) MR#: [id number] Acct: [id number] Name: DIONY CARRILLO Rep #: [id number] : 1965 F 53 From: Giuliano Lopez MD PCP: Alessandro Eric MD Status: REG ER Study: Chest 1 View (Portable) Date of Exam: 09/28/18 Exam# [id number] Ordering Dr: Henna Lou MD STUDY: X-RAY CHEST REASON FOR EXAM: Female, 53 years old. Substernal chest pain TECHNIQUE: Single AP portable view of the chest. COMPARISON: 09/24/2018 FINDINGS: EKG leads overlie the chest The lungs are clear and expanded. There [...] IMPRESSION: Normal x-ray examination of the chest. Electronically Signed: Ambrosio Lopez MD at 17:53 EST , Service support , CC: Henna Lou MD; Alessandro Eric MD Car Designer: Signed CBC W/DIFF, AUTOMATED Collected: 09/28/2018 Status: F Source: [place] 5:00 PM [facility] [place], [place] REPOSITORY TYPE CODE TESTS RESULT OUT OF RANGE REFERENCE UNITS LAB L100.1000 4.4-11.0 K/mm3 Normal WBC 9.2 LAB L100.1200 4.2-5.4 M/mm3 Low RBC 3.89 LAB L100.1300 12.0-15.0 g/dl Low HGB 10.9 LAB L100.1400 37-47 % Low HCT 33.8 LAB L100.1500 81-99 fL Normal MCV 86.9 LAB L100.1600 27.0-32.0 pg Normal MCH 28.0 LAB L100.1700 32-36 g/gl Normal MCHC 32.2 LAB L100.1810 11.6-14.6 % Normal RDW CV 13.4 LAB L100.1820 35.1-43.9 fl Normal RDW SD 42.6 LAB L100.1900 150-450 K/mm3 Normal PLT 357 LAB L100.2000 6.2-12.0 fl Normal MPV 10.5 LAB L100.2100 47-70 % High NEUT% 71.0 LAB L100.2200 19-41 % Normal LY% 19.3 LAB L100.2300 0-10 % Normal MONO% 6.9 LAB L100.2400 0-5 % Normal EO% 2.1 LAB L100.2500 0-1 % Normal BASO% 0.5 LAB L100.2550 0.0-0.9 % Normal IM GRAN % 0.200 Result Comment: IG% - Immature Granulocytes (promyelocytes, myelocytes and metamyelocytes) > 1% indicates that a LEFT SHIFT is Present. LAB L100.2620 2.0-7.7 X10 3/uL Normal Absolute Neut 6.5 LAB L100.2720 0.83-4.51 X10 3/ul Normal Absolute Lymph 1.77 Performed By: #### L100.0100 #### [facility] [address] [place], [place], [address] BASIC METABOLIC Collected: 09/28/2018 Status: F Source: [place] PROFILE ([facility]) 5:00 PM [facility] [place], [place] REPOSITORY TYPE CODE TESTS RESULT OUT OF RANGE REFERENCE UNITS LAB L501.0100 74-106 mg/dL High GLU 120 Result Comment: Fasting Glucose result from 100 to 125 mg/dL suggests IMPAIRED HOMEOSTASIS per A.D.A. criteria. Please note revised GLUCOSE reference range effective 2017. LAB L501.1000 7-18 mg/dL High BUN 24 LAB L501.1100 0.55-1.02 mg/dL High CREAT,SERUM 1.22 Result Comment: The validity of the calculated GFR AND GFRAA in patients over 70 years has not been determined. Clinical correlation is essential. LAB L501.1110 >60 mL/min Low EST GFR 49 Result Comment: Non- GFR Calc LAB L501.1115 >60 mL/min Low EST GFR - AA 59 Result Comment: GFR Calc LAB L501.1255 ml/min Normal Estimated CRCL 49.92 LAB L501.1300 10-20 RATIO Normal BUN/CRE 19.7 LAB L501.2200 8.5-10 mg/dL Normal .1 CA 9.4 LAB L501.5300 136-14 mmol/L Normal 5 NA 139 LAB L501.5600 3.5-5. mmol/L Normal 1 K 3.7 LAB L501.5900 98-107 mmol/L Normal CL 105 LAB L501.6100 21.0-3 mmol/L Normal 2.0 CO2 25.0 LAB L501.6200 5-15 Normal GAP 9 Performed By: #### L500.2500, L501.4010 #### [facility] [address] [place], [place], [id number] TROPONIN-I Collected: 09/28/2018 Status: F Source: [place] 5:00 PM [facility] [place], [place] REPOSITORY TYPE CODE TESTS RESULT OUT OF RANGE REFERENCE UNITS LAB L501.4010 <0.045 ng/mL High 0.073 TROPONIN-I Result Comment: TROPONIN-I EXPECTED VALUES <0.045 Negative 0.045 - 0.590 Consistent with Cardiac Damage > OR = 0.600 Critical Value Not every elevated troponin is indicative of OH. These values should be used with clinical judgement in examining the patient's clinical picture for diagnosis. To establish a diagnosis of OH versus myocardial injury, there must be a demonstrated rise and/or fall in the troponin values, in addition to ischemic symptoms, EKG changes, new regional wall motion abnormality, and/or angiographical evidence. PLEASE NOTE: REFERENCE RANGES EDITED 18 Performed By: #### L500.2500, L501.4010 #### [facility] [address] [place], [place], [id number] BEDSIDE GLUCOSE Collected: 09/28/2018 Status: F Source: [place] 4:58 PM [facility] [place], [place] REPOSITORY TYPE CODE TESTS RESULT OUT OF REFERENCE UNITS RANGE LAB L501.080 70-110 mg/dL High BEDSIDE GLU 120 Result Comment: MANAGEMENT OF PATIENT CARE PER NURSING PROTOCOL Performed By: #### L501.080 #### [facility] Point of Care [address] [place] [address] CARDIOLOGY VISIT Observed: 09/28/2018 Status: F Source: [place] REPORT 3:35 PM [facility] [place], [place] REPOSITORY [facility] [address] [place] [address] OFFICE VISIT Date of Service: 09/28/18 MR#: [id number] Acct: [id number] Name: DIONY CARRILLO Rep #: [id number] : 1965 Provider: Saravanan Jean Baptiste MD Age/Sex: 53/F Location: [facility] Status: Signed HPI HPI Chief Complaint: Follow up Details: DIONY CARRILLO, is a 53 F who presents to the office today for a follow-up visit. She had presented with an acute coronary syndrome underwent a cardiac catheterization which demonstrated significant lesions in the proximal and mid left anterior descending artery. She underwent angioplasty and stenting with a 2.25 x 16 Promus Synergy stent in the mid LAD and a 2.5 x 12 Promus Synergy stent in the proximal left anterior descending artery. She is been doing well since going home her major issues are related to her restless leg syndrome. She is also had occasional atypical chest discomfort. She has been compliant with her medications. She is not had any neck arm or jaw discomfort suggest angina. Her physical exam here today demonstrates clear lung pena regular rate and rhythm and no pedal edema. Intake Vital Signs09/28/18 Height 5 ft 6 in 09/28/18 Weight: 181 lb 09/28/18 Body Mass Index (BMI) 29.2 09/28/18 Blood Pressure 122/68 H 09/28/18 Blood Pressure Location Lt brachial Intake Visit Reasons: DC ICU 09-22 Brush Hand Required: No Is patient in pain?: Yes Allergies oxycodone HCl [From OxyContin] Allergy (Verified 09/28/18 14:53) Rash Penicillins Allergy (Verified 09/28/18 14:53) Shortness of breath Medications Acetaminophen [Tylenol Tablet] 650 mg PO Q6H PRN PRN 09/20/18 [History Confirmed 09/23/18] Ascorbic Acid [Vitamin C] 500 mg PO BIDCM 09/20/18 [History Confirmed 09/23/18] Gabapentin [Neurontin] 800 mg PO TIDCM 09/20/18 [History Confirmed 09/28/18] Insulin Aspart [Novolog Flexpen] 20 units SUBCUT TIDCM 09/20/18 [History Confirmed 09/28/18] Insulin Glargine [Lantus SoloStar Pen] 30 units SUBCUT 0800 09/20/18 [History Confirmed 09/28/18] Ropinirole HCl [Requip] 3 mg PO BID 09/20/18 [History Confirmed 09/28/18] Clopidogrel Bisulfate [Plavix] 75 mg PO DAILY #30 tab 09/22/18 [Rx Confirmed 09/28/18] Aspirin E.C. [Ecotrin] 81 mg PO DAILY 09/23/18 [History Confirmed 09/28/18] Atorvastatin Calcium [Lipitor] 80 mg PO QHS 09/23/18 [History Confirmed 09/28/18] Lisinopril [Zestril] 5 mg PO DAILY 09/23/18 [History Confirmed 09/28/18] Metoprolol Tartrate [Lopressor (beta kunal)] 12.5 mg PO BID 09/23/18 [History Confirmed 09/28/18] Omeprazole [Prilosec] 20 mg PO DAILY 09/23/18 [History Confirmed 09/28/18] Rosuvastatin Calcium [Crestor] 40 mg PO QHS 09/23/18 [History Confirmed 09/28/18] Isosorbide Mononitrate [Imdur] 30 mg PO DAILY #30 tab 09/24/18 [Rx Confirmed 09/28/18] escitalopram 10 mg tablet 10 mg PO DAILY 09/28/18 [History Confirmed 09/28/18] promethazine 25 mg tablet 25 mg PO Q6H PRN 09/28/18 [History Confirmed 09/28/18] PFSH Medical History HLD (hyperlipidemia) (Chronic) Social History Smoking Status: Never smoker ROS Const Const: Negative for fatigue, weakness, night sweats, excessive sweating, frequent falls, headache(s) or daytime sleepiness Eyes Eyes: Negative for loss of peripheral vision, transient loss of vision, blind spots, double vision or blurry vision ENT ENT: Positive for dizziness; negative for headache(s), balance problems, Nosebleed/epistaxis, tongue swelling or lip swelling Cardio Chest Pain: Yes Character: dull Palpitations: No Edema: None Muscle aches with walking: None Resp Respiratory: Negative for SOB at rest, SOB orthopnea\SOB lying down, Cough, paroxysmal nocturnal dyspnea or SOB with activity GI GI: Negative nausea, vomiting, heartburn, black,tarry stools or bright, red blood in stools : Negative for hematuria Musc Musc: Negative for balance problems, muscle aches/ myalgia, muscle weakness or joint pain Skin Skin: Negative non-healing lesions, unusual bruising or rash Neuro Neuro: Positive for dizziness and lightheadedness; negative for weakness, frequent falls, headache(s), double vision, orthostatic symptoms, blurry vision or lack of coordination Amador Hematologic/Lymphatic: Negative for easy bruising or easy bleeding Endo Endo: Negative for fatigue, excessive sweating, cold intolerance, heat intolerance, increased thirst/drinking or hair loss Psych Psych: Negative for anxiety or depression Allergy Allergy/Immunology: Negative for throat swelling, Negative for tongue swelling, Negative for hives, Negative for rash, Negative for lip swelling Cardiology Exam Const Appearance: cooperative, healthy appearing, well developed, well groomed and no acute distress Nutritional Appearance: well nourished and average body habitus Orientation: alert, awake and oriented x3 Head Head: normal to inspection, normocephalic and atraumatic Ears: hearing grossly normal bilaterally and external ears normal Nose: external nose normal, nasal mucous membranes and turbinates normal, nares normal, septum normal, no nasal discharge Face and Sinus: face symmetric Mouth: oral mucosae normal, tongue normal, oropharynx normal and moist mucous membranes Teeth and gingiva: dentition normal Throat: posterior oropharynx normal, tonsils normal and uvula midline Eyes General: appearance normal, both eyes and all related structures Eyelids: eyelids normal Conjunctivae: conjunctivae normal Pupils: PERRL, normal by confrontation and accommodation normal EOM: EOM intact bilaterally Neck Neck: normal visual inspection, trachea midline and no JVD JVD: +5 Carotids: normal carotid upstroke and bounding pulses Chest Chest inspection: normal inspection of the chest, symmetric chest movement and normal respiratory effort Auscultation: Bilateral: Clear to Auscultation Cardio Palpation: normal PMI Rate: regular rate Rhythm: regular rhythm Heart sounds: S1 normal, S2 normal and normal, physiologic split S2; negative rub, gallop or murmur GI GI: normal to inspection, soft, no hepatosplenomegaly and bowel sounds present Neuro General: alert, awake, oriented x3, no focal sensory deficit, gait normal and moves all extremities Skin Skin: no rashes or lesions noted Extremities Pulses: Normal: Right Femoral Pulse, Left Femoral Pulse, Right Dorsalis Pedis Pulse, Left Dorsalis Pedis Pulse, Right Posterior Tibial Pulse, Left Posterior Tibial Pulse, Right Radial Pulse, Left Radial Pulse Lower Extremity Edema: None: Bilateral Musculoskel Musculoskeletal: No joint tenderness Psych Psychological: normal affect Assessment AND Plan 1. NSTEMI (non-ST elevated myocardial infarction) I21.4 Plan She is status post non-ST elevation myocardial infarction with angioplasty and stenting of the left anterior descending artery. I do not think that she will be an appropriate candidate for cardiac rehabilitation. I would like to see her again in approximately 4 months. She tells me that she may be in [place] and I have suggested to her that if she is leaving she should obtain appropriate prescriptions for the journey. 2. Pure hypercholesterolemia E78.00; E78.0 Plan She does have a history of hyperlipidemia. She remain on high intensity statin. Repeat lipid profile be performed at her next visit. 3. Essential hypertension I10 Plan She does have a history of hypertension her blood pressure appears to be under good control on the current medical therapy. I would not recommend we make any other changes. Thank you for allowing me to participate in the care of your patient. Please don't hesitate to call if any issues arise Plan Detail Follow Up 4 Months (mmm) Coding Level of Care Code Off vis,est,level 4 Diagnoses NSTEMI (non-ST elevated myocardial infarction) I21.4 Pure hypercholesterolemia E78.00; E78.0 Hyperlipidemia type: pure hypercholesterolemia Essential hypertension I10 Hypertension type: essential hypertension Coding Level of Care Code Off vis,est,level 4 Diagnoses NSTEMI (non-ST elevated myocardial infarction) I21.4 Pure hypercholesterolemia E78.00; E78.0 Hyperlipidemia type: pure hypercholesterolemia Essential hypertension I10 Hypertension type: essential hypertension 09/28/18 1535 <Electronically signed by Saravanan Jean Baptiste MD> Date Saravanan Jean Baptiste MD Cosigner Signature: Date (if applicable) CC: Alessandro Eric MD 12 LEAD ELECTROCARDIOGRAM Observed: 09/27/2018 Status: F Source: [place] 4:00 PM [facility] [place], [place] REPOSITORY [facility] Cardiovascular Services [address] [place] [address] 12 Lead EKG 09/24/18 0134 MR#: [id number] Acct: [id number] Name: DIONY CARRILLO Rep #: [id number] : 1965 53 From: Saravanan Jean Baptiste MD Attending Dr: Deepa Irizarry Status: DIS MITCH Ordering Dr: Deepa Irizarry MD Date: 09/24/18 Location: [facility] Sex: F C Admitted: 09/23/18 Test Reason : CP Blood Pressure : / mmHG Vent. Rate : 086 BPM Atrial Rate : 086 BPM P-R Int : 152 ms QRS Dur : 088 ms QT Int : 398 ms P-R-T Axes : 049 031 126 degrees QTc Int : 476 ms Normal sinus rhythm Septal infarct , age undetermined T wave abnormality, consider anterolateral ischemia Abnormal ECG When compared with ECG of 23-SEP-2018 14:08, MANUAL COMPARISON REQUIRED, DATA IS UNCONFIRMED Confirmed by SARAVANAN JEAN BAPTISTE MD ([id number]), development editor MARLON GALEANA ([id number]) on 09/27/2018 4:00:18 PM Referred By: DEYVI Confirmed By:SARAVANAN JEAN BAPTISTE MD 09/27/18 1600 Date Saravanan Jean Baptiste MD CC: Deepa Irizarry; Alessandro Eric MD Signed 12 LEAD ELECTROCARDIOGRAM Observed: 09/27/2018 Status: F Source: [place] 3:54 PM [facility] REPOSITORY [facility] Cardiovascular Services [address] [place] [address] 12 Lead EKG 09/23/18 1137 MR#: [id number] Acct: [id number] Name: DIONY CARRILLO Rep #: [id number] : 1965 53 From: Saravanan Jean Baptiste MD Attending Dr: Deepa Irizarry Status: DIS MITCH Ordering Dr: Deepa Irizarry MD Date: 09/23/18 Location: [facility] Sex: F C Admitted: 09/23/18 Test Reason : CP Blood Pressure : / mmHG Vent. Rate : 090 BPM Atrial Rate : 090 BPM P-R Int : 150 ms QRS Dur : 088 ms QT Int : 386 ms P-R-T Axes : 038 025 116 degrees QTc Int : 472 ms Normal sinus rhythm Septal infarct , age undetermined Abnormal ECG Confirmed by MARKEL DELVALLE, SARAVANAN ([id number]), development editor MARLON GALEANA ([id number]) on 09/27/2018 3:54:14 PM Referred By: RU Confirmed By:SARAVANAN JEAN BAPTISTE MD 09/27/18 1554 Date Saravanan Jean Baptiste MD CC: Deepa Irizarry; Alessandro Eric MD Signed PROGRESS Observed: 09/27/2018 Status: COMPLETED Source: [place] 3:15 PM [facility] REPOSITORY HNO ID: [id number] Author: Pasha Cortes (Abigail) Service: (none) Author Type: Registered Nurse Type: Progress Notes Filed: 10/05/2018 3:13 PM Note Text: PRIMARY CARE COORDINATION FOLLOW-UP NOTE Provider Action/FYI Call to Pt unable to leave a , to schedule with Pcp and review medications Patient identified by name and date of . YES Summary: Pt needs medications reviewed and appt with Pcp within 7-14 days Dispatcher Tow Truck plan for next outreach: Early symptom awareness and communication to Pcp / CUSTODY OFFICER to prevent complications Gary Pak RN September 27, 2018 PROGRESS Observed: 09/26/2018 Status: COMPLETED Source: [place] 4:44 PM [facility] REPOSITORY HNO ID: [id number] Author: Pasha Cortes (Rn) Service: (none) Author Type: Registered Nurse Type: Progress Notes Filed: 10/05/2018 3:13 PM Note Text: TRANSITION CARE MANAGEMENT (TCM) INITIAL CONTACT Provider Action/FYI: 1. Spk with Pt who notes she was seen at [facility] for throbbing in her chest, Pt noted OH was ruled out. She may have had too much stress 2. Pt denies Sob or swelling or other unusual symptoms 3. Appt with Podiatry [facility] 09/29/18 Initial contact with patient post discharge, spoke to Pt. Patient identified by name and . TRANSITION CARE MANAGEMENT: Date of Outreach: 09/26/2018 Outreach Attempt 1: Contact Made Date of Discharge 09/24/2018 Some recent data might be hidden SUMMARY: -Pt discharged from [facility] on 09/24/18. -Follow up appointment TBD -Medication review done ( Pt was unable to talk at this time). -Admitted for: CP ( Recent Acute OH S/p PCI / DARA) CONCERNS: Pt denies needs or concerns NEW MEDICATIONS: MEDS HELD/DISCONTINUED: BRIEF HOSPITAL COURSE: [facility] Discharge Excerpt Imaging Results: Clinical Impression(s) from Imaging Studies Chest X-Ray 09/23/18 11:55 Consultations 09/23/18 15:16 Consult: Onc/Wound/apartment maintenance manager Routine Comment: Reason for Consult:: left foot [...] before admission, patient had acute ST elevation OH, underwent cardiac catheterization and she had PCI/DARA to mid and proximal LAD. During this admission, EKG performed and repeated this morning and both revealed no evidence of acute ischemic changes. Her troponin was elevated but was trending down from 2 days ago when she was admitted for acute ST elevation OH. Overnight, repeat troponin was trending down. Today, [...] medications including aspirin, Plavix, statins, beta-blockers and BRANDO inhibitors, started on isosorbide mononitrate, recommended follow-up with PCP in 1 week and follow-up with cardiology in 2 weeks. Thank You Sophia Pak RN September 26, 2018 4:44 PM PROGRESS Observed: 09/26/2018 Status: COMPLETED Source: [place] 3:42 PM [facility] REPOSITORY HNO ID: [id number] Author: Pasha Cortes (Rn) Service: (none) Author Type: Registered Nurse Type: Progress Notes Filed: 09/26/2018 3:47 PM Note Text: PRIMARY CARE COORDINATION FOLLOW-UP NOTE Provider Action/FYI Noted, Thank You Patient identified by name and date of . YES Dispatcher Tow Truck plan for next outreach: Follow for Care needs Signature Sophia Pak RN September 26, 2018 PROGRESS Observed: 09/26/2018 Status: COMPLETED Source: [place] 12:32 PM [facility] REPOSITORY HNO ID: [id number] Author: Kaylyn Harrison Ma Service: (none) Author Type: (none) Type: Progress Notes Filed: 09/26/2018 3:47 PM Note Text: I'm routing this pt to be Care Coordinated due to multiple medical issues and re-occurrence with going into the hospital. This message and ER documentation has been sent to Sophia Pak. Kaylyn Harrison Ma CNPTOUTREACH Observed: 09/26/2018 Status: COMPLETED Source: [place] 12:00 AM [facility] REPOSITORY Patient Outreach (FAMPWS) DIONY CARRILLO ([id number]) 1965 F Date Time Provider Department 09/26/18 PASHA SelfRN) ROSINAPWS During your visit today, we recorded the following information about you: Sophia Pak RN 10/05/2018 3:13 PM Signed TRANSITION CARE MANAGEMENT (TCM) INITIAL CONTACT Provider Action/FYI: 1. Spk with Pt who notes she was seen at [facility] for throbbing in her chest, Pt noted OH was ruled out. She may have had too much stress 2. Pt denies Sob or swelling or other unusual symptoms 3. Appt with Podiatry [facility] 09/29/18 Initial contact with patient post discharge, spoke to Pt. Patient identified by name and . TRANSITION CARE MANAGEMENT: Date of Outreach: 09/26/2018 Outreach Attempt 1: Contact Made Date of Discharge 09/24/2018 Some recent data might be hidden SUMMARY: -Pt discharged from [facility] on 09/24/18. -Follow up appointment TBD -Medication review done ( Pt was unable to talk at this time). -Admitted for: CP ( Recent Acute OH S/p PCI / DARA) CONCERNS: Pt denies needs or concerns NEW MEDICATIONS: MEDS HELD/DISCONTINUED: BRIEF HOSPITAL COURSE: [facility] Discharge Excerpt Imaging Results: Clinical Impression(s) from Imaging Studies Chest X-Ray 09/23/18 11:55 Consultations 09/23/18 15:16 Consult: Onc/Wound/apartment maintenance manager Routine Comment: Reason for Consult:: left foot [...] before admission, patient had acute ST elevation OH, underwent cardiac catheterization and she had PCI/DARA to mid and proximal LAD. During this admission, EKG performed and repeated this morning and both revealed no evidence of acute ischemic changes. Her troponin was elevated but was trending down from 2 days ago when she was admitted for acute ST elevation OH. Overnight, repeat troponin was trending down. Today, [...] medications including aspirin, Plavix, statins, beta-blockers and BRANDO inhibitors, started on isosorbide mononitrate, recommended follow-up with PCP in 1 week and follow-up with cardiology in 2 weeks. Thank You Sophia Pak RN September 26, 2018 4:44 PM Sophia Pak RN 10/05/2018 3:13 PM Signed PRIMARY CARE COORDINATION FOLLOW-UP NOTE Provider Action/FYI Call to Pt unable to leave a vm, to schedule with Pcp and review medications Patient identified by name and date of . YES Summary: Pt needs medications reviewed and appt with Pcp within 7-14 days Dispatcher Tow Truck plan for next outreach: Early symptom awareness and communication to Pcp / CUSTODY OFFICER to prevent complications Signature Sophia Pak RN September 27, 2018 Allergies As of Date: 09/26/2018 Noted Allergy Reaction OXYCONTIN (OXYCODONE HCL) 09/27/2007 Comments: itch PENICILLINS 06/02/2007 4 - Hives REQUIP (ROPINIROLE) 11/18/2015 5 - Intolerance Comments: Vomiting, panic attacks, itching Date Reviewed: 09/19/2018 Reviewed by: Cecy Carbajal RN - Fully Assessed Reason for Visit: Transition Of Care [4074] Cmt: [facility] 09/23/18-09/24/18 Dx:CP Prescriptions as of 09/26/2018 Sig: ACETAMINOPHEN 325 MG TABLET Take 2 [...] 1 Drop in both eyes four * Patient not taking: Reported on 09/29/2018 DOCUSATE SODIUM 100 MG CAPSULE Take 1 capsule by mouth twice* ERGOCALCIFEROL (VITAMIN D2) 5* Take 1 capsule by mouth once * GABAPENTIN 800 MG TABLET Take 1 tablet by mouth three * INSULIN ASPART U-100 100 UNI* Inject 20 Units subcutaneousl* INSULIN GLARGINE (U-100) 100 * Inject 30 units subcutaneousl* PEN NEEDLE, DIABETIC 31 GAUGE* Use as directed four times da* LACTOBACILLUS RHAMNOSUS GG 10* Take 1 capsule by mouth once * LANCETS Check blood sugar readings 2-* LANCETS [...] four t* Problem List As Of Date 09/26/2018 Noted Resolved Reaction, adjustment, with depressed mood, [...] FOR* Encounter Status:Closed by SOPHIA PAK on 10/05/18 PROGRESS Observed: 09/25/2018 Status: COMPLETED Source: MCADOO 5:39 PM [facility] REPOSITORY HNO ID: [id number] Author: Alessandro Eric Service: (none) Author Type: Physician Type: Progress Notes Filed: 09/26/2018 3:47 PM Note Text: We should try to see her for TCM. Alessandro Eric MD PROGRESS Observed: 09/25/2018 Status: COMPLETED Source: MCADOO 12:27 PM [facility] REPOSITORY HNO ID: [id number] Author: Kaylyn Harrisno Ma Service: (none) Author Type: (none) Type: Progress Notes Filed: 09/26/2018 3:47 PM Note Text: We've received paperwork from [facility] where pt was admitted from 09/23/18-09/24/18 for NSTEMI. On discharge pt is to f/u with Cardiology in 1-2 weeks. Pt also admitted from 09/20/18-09/22/18 Please review pt paperwork (on desk), let me know if this is someone you want to see as she has frequent hospital stays/visits. Kaylyn Harrison Ma 12 LEAD ELECTROCARDIOGRAM Observed: 09/25/2018 Status: F Source: [place] 7:58 AM [facility] REPOSITORY [facility] Cardiovascular Services [address] [place] [address] 12 Lead EKG 09/21/18 0911 MR#: [id number] Acct: [id number] Name: DIONY CARRILLO Rep #: [id number] : 1965 53 From: Saravanan Jean Baptiste MD Attending Dr: Deepa Irizarry Status: DIS MITCH Ordering Dr: Anjum Asencio DO Date: 09/23/18 Location: [facility] Sex: F C Admitted: 09/23/18 Test Reason [...] COMPARISON REQUIRED, DATA IS UNCONFIRMED Confirmed by SARAVANAN JEAN BAPTISTE MD ([id number]), development editor MARLON GALEANA ([id number]) on 09/25/2018 7:58:11 AM Referred By: Confirmed By:SARAVANAN JEAN BAPTISTE MD 09/25/18 0758 Date Saravanan Jean Baptiste MD CC: Deepa Irizarry; Alessandro Eric MD; Anjum Asencio DO Signed 12 LEAD ELECTROCARDIOGRAM Observed: 09/25/2018 Status: F Source: [place] 7:57 AM [facility] REPOSITORY [facility] Cardiovascular Services [address] [place] [address] 12 Lead EKG 09/21/18 1155 MR#: [id number] Acct: [id number] Name: DIONY CARRILLO Rep #: [id number] : 1965 53 From: Saravanan Jean Baptiste MD Attending Dr: Jopperi DO,Kali Status: DIS IN Ordering Dr: Gustavo Ha MD Date: 09/21/18 Location: ICU Sex: F [...] Confirmed by SARAVANAN JEAN BAPTISTE MD ([id number]), development editor MARLON GALEANA ([id number]) on 09/25/2018 7:57:16 AM Referred By: DILCIA Confirmed By:SARAVANAN JEAN BAPTISTE MD 09/25/18 0757 Date Saravanan Jean Baptiste MD CC: Gustavo Ha MD; Kali Prado DO; Alessandro Eric MD Signed 12 LEAD ELECTROCARDIOGRAM Observed: 09/25/2018 Status: F Source: [place] 7:56 AM [facility] [place] [place] REPOSITORY [facility] Cardiovascular Services [address] [place] [address] 12 Lead EKG 09/22/18 0409 MR#: [id number] Acct: [id number] Name: DIONY CARRILLO Rep #: [id number] : 1965 53 From: Saravanan Jean Baptiste MD Attending Dr: Kali Prado DO Status: DIS IN Ordering Dr: Gustavo Ha MD Date: 09/22/18 Location: ICU Sex: F [...] COMPARISON REQUIRED, DATA IS UNCONFIRMED Confirmed by SARAVANAN JEAN BAPTISTE MD ([id number]), development editor MARLON GALEANA ([id number]) on 09/25/2018 7:55:54 AM Referred By: TERESSA Confirmed By:SARAVANAN JEAN BAPTISTE MD 09/25/18 0756 Date Saravanan Jean Baptiste MD CC: Gustavo Ha MD; Kali Prado DO; Alessandro Eric MD Signed CNPTOUTREACH Observed: 09/25/2018 Status: COMPLETED Source: [place]AD[place] 12:00 AM [facility] REPOSITORY Patient Outreach (FAMPWS) DIONY CARRILLO ([id number]) 1965 F Date Time Provider Department 09/25/18 [facility] During your visit today, we recorded the following information about you: Kaylyn Harrison Ma 09/26/2018 3:47 PM Signed We've received paperwork from [facility] where pt was admitted from 09/23/18-09/24/18 for NSTEMI. On discharge pt is to f/u with Cardiology in 1- 2 weeks. Pt also admitted from 09/20/18-09/22/18 Please review pt paperwork (on desk), let me know if this is someone you want to see as she has frequent hospital stays/visits. Kaylyn Eric MD 09/26/2018 3:47 PM Signed We should try to see her for TCM. MD Kaylyn Castillo Ma 09/26/2018 3:47 PM Signed I'm routing this pt to be Care Coordinated due to multiple medical issues and re-occurrence with going into the hospital. This message and ER documentation has been sent to Sophia Pak. Kaylyn Pak, RN 09/26/2018 3:47 PM Signed PRIMARY CARE COORDINATION FOLLOW-UP NOTE Provider Action/FYI Noted, Thank You Patient identified by name and date of . YES Dispatcher Tow Truck plan for next outreach: Follow for Care needs Signature Sophia Pak RN September 26, 2018 Allergies As of Date: 09/25/2018 Noted Allergy Reaction OXYCONTIN (OXYCODONE HCL) 09/27/2007 Comments: itch PENICILLINS 06/02/2007 4 - Hives REQUIP (ROPINIROLE) 11/18/2015 5 - Intolerance Comments: Vomiting, panic attacks, itching Date Reviewed: 09/19/2018 Reviewed by: Cecy Carbajal RN - Fully Assessed Reason for Visit: Transition Of Care [9304] Cmt: Hospital f/u. University Administrative Assistant Chronic Care [4090] Reason For Visit History Recorded Prescriptions as [...] DISCHARGE SUMMARY Observed: 09/24/2018 Status: F Source: [place] 1:42 PM [facility] [place] [place] REPOSITORY [facility] Medical Records Department [address] [place] [address] Discharge Summary 09/24/18 1336 MR#: [id number] Acct: [id number] Name: DIONY CARRILLO Rep #: [id number] : 1965 53 From: Deepa Irizarry MD PCP: Jeaneth DELVALLE,Alessandro Status: DIS MITCH Y Location: [place] [address] Discharge Date and Diagnosis Date of Admission: 09/23/18 Date of Discharge: 09/24/18 - Primary Discharge Diagnosis Chest pain in context of recent history of acute non-ST elevation OH status post PCI/DARA to mid and proximal [...] X-Ray 09/23/18 11:55 Consultations 09/23/18 15:16 Consult: Onc/Wound/apartment maintenance manager Routine Comment: Reason for Consult:: left foot [...] before admission, patient had acute ST elevation OH, underwent cardiac catheterization and she had PCI/DARA to mid and proximal LAD. During this admission, EKG performed and repeated this morning and both revealed no evidence of acute ischemic changes. Her troponin was elevated but was trending down from 2 days ago when she was admitted for acute ST elevation OH. Overnight, repeat troponin was trending down. Today, [...] medications including aspirin, Plavix, statins, beta-blockers and BRANDO inhibitors, started on isosorbide mononitrate, recommended follow-up [...] applicable Code Visit OBSV E AND M: 12647 Observation care discharge 09/24/18 1342 <Electronically signed by Deepa Irizarry MD> Date Deepa Irizarry MD Cosigner Signature (if applicable): Date CC: Saravanan Jean Baptiste MD; Deepa Irizarry; Alessandro Eric MD Signed DISCHARGE INSTRUCTION Observed: 09/24/2018 Status: F Source: [place] 11:43 AM [facility] [place] [place] REPOSITORY [facility] Medical Records Department [address] [place] [address] Instructions for Home/Discharge Instructions 09/24/18 1142 MR#: [id number] Acct: [id number] Name: DIONY CARRILLO Rep #: [id number] : 1965 53 From: Deepa Irizarry MD PCP: Alessandro Eric MD Status: ADM MITCH - Discharge Diagnoses Current [...] MD CONSULTATION Observed: 09/24/2018 Status: F Source: [place] 11:41 AM [facility] [place] [place] REPOSITORY [facility] Medical Records Department [address] [place] [address] Consultation 09/24/18 1135 MR#: [id number] Acct: [id number] Name: DIONY CARRILLO Rep #: [id number] : 1965 53 From: Gagan Da Silva MD PCP: Alessandro Eric MD Status: ADM MITCH Y Location: [place] [address] Problem List (1) Chest pain Status: Acute [...] 1994, section x2. 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: No pertinent CONTROL EQUIPMENT ELECTRICIAN history - *Family History Maternal History Items: [...] 74.8 H, Lymph % (Auto) 16.3 L, [place] % (Auto) 5.2, Eos % (Auto) 3.2, [...] 09/24/2018 Status: F Source: [place] 11:36 AM [facility] [place] [place] REPOSITORY [facility] Medical Records Department [address] [place] [address] Instructions for Home/Discharge Instructions 09/24/18 1135 MR#: [id number] Acct: [id number] Name: DIONY CARRILLO Rep #: [id number] : 1965 53 From: Deepa Irizarry MD [...] 09/24/2018 Status: F Source: [place] 11:07 AM [facility] [place] [place] REPOSITORY TYPE CODE TESTS RESULT OUT OF REFERENCE UNITS RANGE LAB L501.080 70-110 mg/dL High BEDSIDE GLU 391 Result Comment: MANAGEMENT OF PATIENT CARE PER NURSING PROTOCOL Performed By: #### L501.080 #### [facility] Point of Care [address] [place] [address] BEDSIDE GLUCOSE Collected: 09/24/2018 Status: F Source: [place] 7:31 AM [facility] [place] [place] REPOSITORY TYPE CODE TESTS RESULT OUT OF REFERENCE UNITS RANGE LAB L501.080 70-110 mg/dL High BEDSIDE GLU 298 Result Comment: MANAGEMENT OF PATIENT CARE PER NURSING PROTOCOL Performed By: #### L501.080 #### [facility] Point of Care [address] [place] [address] BEDSIDE GLUCOSE Collected: 09/24/2018 Status: F Source: [place] 4:43 AM [facility] [place] [place] REPOSITORY TYPE CODE TESTS RESULT OUT OF REFERENCE UNITS RANGE LAB L501.080 70-110 mg/dL High BEDSIDE GLU 280 Result Comment: MANAGEMENT OF PATIENT CARE PER NURSING PROTOCOL Performed By: #### L501.080 #### [facility] Point of Care [address] [place] [address] BEDSIDE GLUCOSE Collected: 09/23/2018 Status: F Source: [place] 9:20 PM [facility] [place] [place] REPOSITORY TYPE CODE TESTS RESULT OUT OF REFERENCE UNITS RANGE LAB L501.080 70-110 mg/dL High BEDSIDE GLU 318 Result Comment: MANAGEMENT OF PATIENT CARE PER NURSING PROTOCOL Performed By: #### L501.080 #### [facility] Point of Care [address] [facility] [place] [address] TROPONIN-I Collected: 09/23/2018 Status: F Source: [place] 5:50 PM [facility] [place] [place] REPOSITORY Order Comment: 'TROP' Serial specimen #1, [...] Not every elevated troponin is indicative of OH. These values should be used with clinical judgement in examining the patient's clinical picture for diagnosis. To establish a diagnosis of OH versus myocardial injury, there must be a demonstrated rise and/or fall in the troponin values, in addition to ischemic symptoms, EKG changes, new regional wall motion abnormality, and/or angiographical evidence. PLEASE NOTE: REFERENCE RANGES EDITED 18 Performed By: #### L501.4010 #### [facility] [address] [facility], [address] HISTORY AND PHYSICAL Observed: 09/23/2018 Status: F Source: [place] EXAM 1:45 PM [facility] [place] [place] REPOSITORY [facility] [place] [address] History and Physical 09/23/18 1326 MR#: [id number] Acct: [id number] Name: DIONY CARRILLO Rep #: [id number] : 1965 53 From: Deepa Irizarry MD PCP: Elderbrock MD,Alessandro Status: ADM MITCH Y Location: [place] [address] Problem List (1) NSTEMI (non-ST elevated myocardial [...] yesterday, was admitted for acute non-ST elevation OH, underwent cardiac catheterization with PTCA/DARA to mid [...] 1994, section x2. 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: No pertinent CONTROL EQUIPMENT ELECTRICIAN history Lives: Alone Smoking Status: Never smoker [...] yesterday after admission for acute non-ST elevation OH status post PCI/DARA to mid and proximal [...] indicated, ambulate. This note was generated with [employer] dictation software. It may contain incorrect words, spelling, and punctuation that were not noted in checking the note before signing. Code Visit OBSV E AND M: 98340 Initial observation care L3 09/23/18 1345 <Electronically signed by Deepa Irizarry MD> Date Deepa Irizarry MD [facility] Signature: Date (if applicable) CC: Deepa Irizarry; Alessandro Eric MD Signed EMERGENCY DEPARTMENT Observed: 09/23/2018 Status: F Source: [place] SUMMARY 12:52 PM [facility] [place] [place] REPOSITORY [facility] Medical Records Department [address] [place] [address] Emergency Department Summary 09/23/18 1249 MR#: [id number] Acct: [id number] Name: DIONY CARRILLO Rep #: [id number] : 1965 53 From: Anjum Asencio DO [...] 2 stents placed for a non-ST elevation OH. Patient denies recent travel or surgery.] EMS [...] coronary syndrome] This note was generated with [employer] dictation software. It may contain incorrect words, [...] problems, contact your Primary Care Provider. Call [email or web address] [facility] ([phone]) or report to the closest Emergency Room. Call 911 if necessary. 09/23/18 1252 <Electronically signed by Anjum Asencio DO> Date Anjum Asencio DO Cosigner Signature (If Indicated): Date CC: Alessandro Eric MD CHEST 1 VIEW Observed: 09/23/2018 Status: F Source: [place] (PORTABLE) 11:56 AM [facility] [place] [place] REPOSITORY [facility] Imaging Services [facility] [address] [place] [address] Chest 1 View (Portable) MR#: [id number] Acct: [id number] Name: DIONY CARRILLO Rep #: [id number] : 1965 F 53 From: Nathan Mcghee MD PCP: Alessandro Eric MD Status: PRE ER Study: Chest 1 View (Portable) Date of Exam: 09/23/18 Exam# [id number] Ordering Dr: Anjum Asencio DO STUDY: X-RAY [...] CC: Alessandro Eric MD; Anjum Asencio DO Car Designer: Signed CBC W/DIFF, AUTOMATED Collected: 09/23/2018 Status: F Source: [place] 11:45 AM [facility] [place] [place] REPOSITORY TYPE CODE TESTS RESULT OUT OF [...] Lymph 1.26 Performed By: #### L100.0100 #### [facility] [address] [place], [address] BASIC METABOLIC Collected: 09/23/2018 Status: F Source: [place] PROFILE ([facility]) 11:45 AM [facility] [place] [place] REPOSITORY TYPE CODE TESTS RESULT OUT OF [...] 8 Performed By: #### L500.2500, L501.4010 #### [facility] [address] [place], [address] TROPONIN-I Collected: 09/23/2018 Status: F Source: [place] 11:45 AM [facility] [place] [place] REPOSITORY TYPE CODE TESTS RESULT OUT OF RANGE REFERENCE UNITS LAB L501.4010 <0.045 ng/mL High alert 2.570 TROPONIN-I Result Comment: Critical Result(s) Called at: 12:21:39 09/23/2018 by: Bill Roman RN (ER). TROPONIN-I EXPECTED VALUES <0.045 Negative 0.045 - 0.590 Consistent with Cardiac Damage > OR = 0.600 Critical Value Not every elevated troponin is indicative of OH. These values should be used with clinical judgement in examining the patient's clinical picture for diagnosis. To establish a diagnosis of OH versus myocardial injury, there must be a demonstrated rise and/or fall in the troponin values, in addition to ischemic symptoms, EKG changes, new regional wall motion abnormality, and/or angiographical evidence. PLEASE NOTE: REFERENCE RANGES EDITED 18 Performed By: #### L500.2500, L501.4010 #### [facility] [address] [facility] [place], [address] 12 LEAD ELECTROCARDIOGRAM Observed: 09/22/2018 Status: F Source: [place] 11:00 AM [facility] [place] [place] REPOSITORY [facility] Cardiovascular Services [address] [place] [address] 12 Lead EKG 09/21/18 0051 MR#: [id number] Acct: [id number] Name: DIONY CARRILLO Rep #: [id number] : 1965 53 From: Saravanan Jean Baptiste [...] COMPARISON REQUIRED, DATA IS UNCONFIRMED Confirmed by SARAVANAN JEAN BAPTISTE MD ([id number]), development editor MARLON GALEANA ([id number]) on 09/22/2018 10:59:58 AM Referred By: MEGGAN Confirmed By:SARAVANAN JEAN BAPTISTE MD 09/22/18 1059 Date Saravanan Jean Baptiste MD CC: Kali Prado DO; Gopi Bach MD; Alessandro Eric MD Signed ECHOCARDIOGRAM COMPLETE Observed: 09/22/2018 Status: F Source: [place] 10:26 AM [facility] Cardiovascular Services [address] [place] [address] Echo Complete 09/22/18 0739 MR#: [id number] Acct: [id number] Name: DIONY CARRILLO Rep #: [id number] : 1965 53 From: Saravanan Jean Baptiste MD Attending Dr: Kali Prado DO Status: DIS IN Ordering Dr: Saravanan Jean Baptiste MD Date: 09/21/18 Location: ICU Sex: F C Admitted: 09/21/18 Reason For Study: S/P OH Procedure This was a 2D Doppler, Color Flow transthoracic echocardiogram. Exam performed portable in ICU/CCU. Left Ventricle Normal LV size. The estimated ejection fraction is 50 %. Stage 1 diastolic dysfunction. Mild segmental systolic dysfunction (see wall motion). Urania : Hypokinetic. Right Ventricle Normal RV size. [...] 1 diastolic dysfunction. Mild tricuspid valve insufficiency. Urania : Hypokinetic. Mild segmental systolic dysfunction (see wall motion). Ordering Physician: Saravanan Jean Baptiste Referring Physician: MD Alessandro Eric Performed By: Judit Cr, ELENI, RVT 09/22/18 1025 Date Saravanan Jean Baptiste MD CC: Saravanan Jean Baptiste MD; Kali Prado DO; Alessandro Eric MD Date Dictated: 09/22/18 0739 Date Transcribed: 09/22/18 1025 Car Designer: Signed 12 LEAD ELECTROCARDIOGRAM Observed: 09/22/2018 Status: F Source: [place] 9:50 AM [facility] [place] [place] REPOSITORY [facility] Cardiovascular Services [address] [place] [address] 12 Lead EKG 09/20/187 MR#: [id number] Acct: [id number] Name: DIONY CARRILLO Rep #: [id number] : 1965 53 From: Saravanan Jean Baptiste [...] age undetermined Abnormal ECG Confirmed by SARAVANAN JENA BAPTISTE MD ([id number]), development editor MARLON GALEANA ([id number]) on 09/22/2018 9:50:19 AM Referred By: DR SAVAGE Confirmed By:SARAVANAN JEAN BAPTISTE MD 09/22/18 0950 Date Saravanan Jean Baptiste MD CC: Kali Prado DO; Lexie Savage MD; Alessandro Eric MD Signed DISCHARGE SUMMARY Observed: 09/22/2018 Status: F Source: [place] 7:55 AM [facility] [place] [place] REPOSITORY [facility] Medical Records Department [address] [place] [address] Discharge Summary 09/22/18 0751 MR#: [id number] Acct: [id number] Name: DIONY CARRILLO Rep #: [id number] : 1965 53 From: Kali Prado DO PCP: Alessandro Eric MD Status: ADM IN Y Location: ICU [id number] Discharge Date and Diagnosis - Problem List [...] Stent 09/21/18 Atherosclerosis of coronary artery of ambler heart without angina pectoris (Acute) PCI-DARA mid [...] Stent 09/21/18 Atherosclerosis of coronary artery of ambler heart without angina pectoris (Acute) PCI-DARA mid [...] Course and Treatment Consultations 09/21/18 01:35 Consult: Onc/Wound/apartment maintenance manager Routine Comment: Reason for Consult:: wound to [...] Stent 09/21/18 Atherosclerosis of coronary artery of ambler heart without angina pectoris (Acute) PCI-DARA mid [...] at discharge?: Yes Statins at discharge?: Yes Brando/ARB at discharge?: Yes Beta Kunal at discharge?: Yes Done w/ Acute OH measure.: Yes Code Visit Inpatient E AND M: 44585 Disch Hosp 09/22/18 0755 <Electronically signed by Kali Prado DO> Date Kali Goodwinigner Signature (if applicable): Date CC: Saravanan Jean Baptiste MD; Kali Prado DO; Alessandro Eric MD Signed DISCHARGE INSTRUCTION Observed: 09/22/2018 Status: F Source: [place] 7:51 AM [facility] [place] [place] REPOSITORY [facility] Medical Records Department [address] [place] [address] Instructions for Home/Discharge Instructions 09/22/18 0750 MR#: [id number] Acct: [id number] Name: DIONY CARRILLO Rep #: [id number] : 1965 53 From: Kali Prado DO [...] Stent 09/21/18 Atherosclerosis of coronary artery of ambler heart without angina pectoris (Acute) PCI-DARA mid [...] 09/22/2018 Status: F Source: [place] 5:29 AM [facility] [place] [place] REPOSITORY TYPE CODE TESTS RESULT OUT OF REFERENCE UNITS RANGE LAB L501.080 70-110 mg/dL High BEDSIDE GLU 189 Result Comment: Dr Ponce Followed Insulin Given MANAGEMENT OF PATIENT CARE PER NURSING PROTOCOL Performed By: #### L501.080 #### [facility] Point of Care [address] [place] [address] CBC-COMPLETE BLOOD CNT Collected: 09/22/2018 Status: F Source: [place] NO DIFF 4:30 AM [facility] [place] [place] REPOSITORY TYPE CODE TESTS RESULT OUT OF [...] MPV 11.1 Performed By: #### L100.0500 #### [facility] [address] [place], [place], [address] BASIC METABOLIC Collected: 09/22/2018 Status: F Source: [place] PROFILE (BMP) 4:30 AM [facility] [place] [place] REPOSITORY TYPE CODE TESTS RESULT OUT OF [...] 8 Performed By: #### L500.2500, L500.4100 #### [facility] [address] [facility] [place], [address] LIPID PROFILE Collected: 09/22/2018 Status: F Source: [place] 4:30 AM [facility] [place] [place] REPOSITORY TYPE CODE TESTS RESULT OUT OF [...] 44 Performed By: #### L500.2500, L500.4100 #### [facility] [address] [facility], [place], [address] BEDSIDE GLUCOSE Collected: 09/22/2018 Status: F Source: [place] 2:07 AM [facility] [place] [place] REPOSITORY TYPE CODE TESTS RESULT OUT OF REFERENCE UNITS RANGE LAB L501.080 70-110 mg/dL High BEDSIDE GLU 195 Result Comment: MANAGEMENT OF PATIENT CARE PER NURSING PROTOCOL Performed By: #### L501.080 #### [facility] Point of Care [address] [place], [place] [address] BEDSIDE GLUCOSE Collected: 09/21/2018 Status: F Source: [place] 10:24 PM [facility] [place] [place] REPOSITORY TYPE CODE TESTS RESULT OUT OF REFERENCE UNITS RANGE LAB L501.080 70-110 mg/dL High BEDSIDE GLU 189 Result Comment: MANAGEMENT OF PATIENT CARE PER NURSING PROTOCOL Performed By: #### L501.080 #### [facility] Point of Care [address] [place] [address] BEDSIDE GLUCOSE Collected: 09/21/2018 Status: F Source: [place] 7:27 PM [facility] [place] [place] REPOSITORY TYPE CODE TESTS RESULT OUT OF REFERENCE UNITS RANGE LAB L501.080 70-110 mg/dL High BEDSIDE GLU 237 Result Comment: Dr Orders Followed Insulin Given MANAGEMENT OF PATIENT CARE PER NURSING PROTOCOL Performed By: #### L501.080 #### [facility] Point of Care [address] [place] [address] BEDSIDE GLUCOSE Collected: 09/21/2018 Status: F Source: [place] 4:59 PM [facility] [place] [place] REPOSITORY TYPE CODE TESTS RESULT OUT OF RANGE REFERENCE UNITS LAB L501.080 70-110 mg/dL Normal BEDSIDE GLU 101 Result Comment: MANAGEMENT OF PATIENT CARE PER NURSING PROTOCOL Performed By: #### L501.080 #### [facility] Point of Care [address] [place] [address] CBC W/DIFF, AUTOMATED Collected: 09/21/2018 Status: F Source: [place] 4:30 PM [facility] [place] [place] REPOSITORY TYPE CODE TESTS RESULT OUT OF [...] Lymph 1.49 Performed By: #### L100.0100 #### [facility] [address] [facility] [place], [address] ABDOMEN/PELVIS WITHOUT Observed: 09/21/2018 Status: F Source: [place] CONT 4:23 PM [facility] [place] [place] REPOSITORY [facility] Imaging Services [address] [place] [address] Abdomen/Pelvis without Cont MR#: [id number] Acct: [id number] Name: DIONY CARRILLO Rep #: [id number] : 1965 F 53 From: Jefe Cesar MD PCP: Elderbrock MD,Alessandro Status: ADM IN Study: Abdomen/Pelvis without Cont Date of Exam: 09/21/18 Exam# [id number] Ordering Dr: Gustavo Ha MD STUDY: CT ABDOMEN AND PELVIS WITHOUT [...] EST , Service support , CC: Gustavo Ha MD; Alessandro Eric MD Car Designer: Signed CBC W/DIFF, AUTOMATED Collected: 09/21/2018 Status: F Source: [place] 2:30 PM [facility] [place] [place] REPOSITORY TYPE CODE TESTS RESULT OUT OF [...] Lymph 2.12 Performed By: #### L100.0100 #### [facility] [address] [place], [place], [address] BEDSIDE GLUCOSE Collected: 09/21/2018 Status: F Source: PERNELL 2:10 PM [facility] [place], [place] REPOSITORY TYPE CODE TESTS RESULT OUT OF REFERENCE UNITS RANGE LAB L501.080 70-110 mg/dL High BEDSIDE GLU 157 Result Comment: MANAGEMENT OF PATIENT CARE PER NURSING PROTOCOL Performed By: #### L501.080 #### [facility] Point of Care [address] [place] [address] CONSULTATION Observed: 09/21/2018 Status: F Source: PERNELL 11:15 AM [facility] [place], [place] REPOSITORY [facility] Medical Records Department [address] [place] [address] Consultation 09/21/18 0641 MR#: [id number] Acct: [id number] Name: DIONY CARRILLO Rep #: [id number] : 1965 53 From: Saravanan Jean Baptiste MD PCP: Alessandro Eric MD Status: ADM IN Y Location: ICU [place] [address] Reason for Consult Date of Consultation: 09/21/18 [...] 1994, section x2. 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: No pertinent CONTROL EQUIPMENT ELECTRICIAN history - *Family History Maternal History Items: [...] % (Auto) 65.9, Lymph % (Auto) 24.0, [place] % (Auto) 4.2, Eos % (Auto) 5.2 [...] % (Auto) 64.7, Lymph % (Auto) 23.1, [place] % (Auto) 6.8, Eos % (Auto) 4.5, [...] on presentation and will recommend starting an BRANDO inhibitor in addition to the beta-kunal * [...] BEDSIDE GLUCOSE Collected: 09/21/2018 Status: F Source: HULL 11:02 AM [facility] [place] [place] REPOSITORY TYPE CODE TESTS RESULT OUT OF REFERENCE UNITS RANGE LAB L501.080 70-110 mg/dL High BEDSIDE GLU 220 Result Comment: MANAGEMENT OF PATIENT CARE PER NURSING PROTOCOL Performed By: #### L501.080 #### [facility] Point of Care [address] [facility] [place] [address] HISTORY AND PHYSICAL Observed: 09/21/2018 Status: F Source: HULL EXAM 9:09 AM [facility] [place] [place] REPOSITORY [facility] Medical Records Department [address] [place] [address] History and Physical 09/20/18 2341 MR#: [id number] Acct: [id number] Name: DIONY CARRILLO Rep #: [id number] : 1965 53 From: Gopi Bach MD PCP: Alessandro Eric MD Status: ADM IN Y Location: ICU [id number] Problem List (1) NSTEMI (non-ST elevated myocardial [...] 1994, section x2. 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: No pertinent CONTROL EQUIPMENT ELECTRICIAN history Smoking Status: Never smoker Alcohol: None [...] 147/85 H 99 09/20/18 20:56 09/20/18 23:09 09/20/18 23:09 09/20/18 23:09 09/20/18 23:09 Oxygen Delivery [...] in her troponin consistent with non-ST elevation OH. Chest pain Admit to a monitored bed [...] possible cardiac cath. Case was discussed with elementary reading specialist. Acute hyperglycemia On admission blood glucose was [...] of HTN Because of concomitant non-ST elevation OH we will start patient on metoprolol 12.5 mg p.o. twice daily. DVT prophylaxis Not indicated at this time as patient received therapeutic dosing for non-ST elevation OH. Consider DVT prophylaxis when indicated in due course. Code Visit Inpatient E AND M: 49622 Init Hosp L3 09/21/18908 <Electronically signed by Gopi Bach MD> Date Gopi Bach MD Cosign Signature: Date (if applicable) CC: Gopi Bach MD; Alessandro Eric MD Signed ACT ACTIVATED CLOTTING Collected: 09/21/2018 Status: F Source: PERNELL TIME 8:44 AM [facility] [place] [place] REPOSITORY TYPE CODE TESTS RESULT OUT OF RANGE REFERENCE UNITS LAB L9100.0100 74-137 sec High ACTk CLOT 191 TIME Performed By: #### L9100.0100 #### [facility] Point of Care [address] [place] [address] TROPONIN-I Collected: 09/21/2018 Status: F Source: PERNELL 6:50 AM [facility] [place] [place] REPOSITORY TYPE CODE TESTS RESULT OUT OF RANGE REFERENCE UNITS LAB L501.4010 <0.045 ng/mL High alert 7.730 TROPONIN-I Result Comment: Critical Result(s) Called at: 07:34:12 09/21/2018 by: Elizabeth Guevara TROPONIN-I EXPECTED VALUES <0.045 Negative 0.045 - 0.590 Consistent with Cardiac Damage > OR = 0.600 Critical Value Not every elevated troponin is indicative of OH. These values should be used with clinical judgement in examining the patient's clinical picture for diagnosis. To establish a diagnosis of OH versus myocardial injury, there must be a demonstrated rise and/or fall in the troponin values, in addition to ischemic symptoms, EKG changes, new regional wall motion abnormality, and/or angiographical evidence. PLEASE NOTE: REFERENCE RANGES EDITED 18 Performed By: #### L501.4010 #### [facility] [address] [place], [address] BEDSIDE GLUCOSE Collected: 09/21/2018 Status: F Source: HULL 6:21 AM [facility] [place] [place] REPOSITORY TYPE CODE TESTS RESULT OUT OF REFERENCE UNITS RANGE LAB L501.080 70-110 mg/dL High BEDSIDE GLU 212 Result Comment: MANAGEMENT OF PATIENT CARE PER NURSING PROTOCOL Performed By: #### L501.080 #### [facility] Point of Care [address] [place] [address] CBC W/DIFF, AUTOMATED Collected: 09/21/2018 Status: F Source: HULL 3:48 AM [facility] [place] [place] REPOSITORY TYPE CODE TESTS RESULT OUT OF [...] Lymph 2.13 Performed By: #### L100.0100 #### [facility] [address] [place], [place], [id number] PROTHROMBIN TIME W/INR Collected: 09/21/2018 Status: F Source: PER[place]LL 3:48 AM [facility] [place] [place] REPOSITORY TYPE CODE TESTS RESULT OUT OF RANGE REFERENCE UNITS LAB L300.4150 11.7-14.9 SECONDS Normal PROTIME 14.4 LAB L300.4200 Normal INR 1.1 Performed By: #### L300.3900, L300.4310, L500.2500 #### [facility] [address] [place] [id number] PARTIAL THROMBOPLAST Collected: 09/21/2018 Status: F Source: HULL TIME 3:48 AM [facility] [place] [place] REPOSITORY TYPE CODE TESTS RESULT OUT OF REFERENCE UNITS RANGE LAB L300.4310 24.1-36.2 Seconds High PTT 39.4 Performed By: #### L300.3900, L300.4310, L500.2500 #### [facility] [address] [facility] [id number] BASIC METABOLIC Collected: 09/21/2018 Status: F Source: PER[place] PROFILE (BMP) 3:48 AM [facility] [place] [place] REPOSITORY TYPE CODE TESTS RESULT OUT OF [...] Performed By: #### L300.3900, L300.4310, L500.2500 #### [facility] [address] [place], [address] TROPONIN-I Collected: 09/21/2018 Status: F Source: HULL 3:48 AM [facility] [place] [place] REPOSITORY Order Comment: 'TROP' Serial specimen #1, #2 or #3: 3 TYPE CODE TESTS RESULT OUT OF RANGE REFERENCE UNITS LAB L501.4010 <0.045 ng/mL High alert 5.020 TROPONIN-I Result Comment: Critical Result(s) Called at: 04:51:17 09/21/2018 by: YANETH HOLT TROPONIN-I EXPECTED VALUES <0.045 Negative 0.045 - 0.590 Consistent with Cardiac Damage > OR = 0.600 Critical Value Not every elevated troponin is indicative of OH. These values should be used with clinical judgement in examining the patient's clinical picture for diagnosis. To establish a diagnosis of OH versus myocardial injury, there must be a demonstrated rise and/or fall in the troponin values, in addition to ischemic symptoms, EKG changes, new regional wall motion abnormality, and/or angiographical evidence. PLEASE NOTE: REFERENCE RANGES EDITED 18 Performed By: #### L501.4010 #### [facility] [address] [place], [address] LIPID PROFILE Collected: 09/21/2018 Status: F Source: HULL 3:48 AM [facility] [place] [place] REPOSITORY TYPE CODE TESTS RESULT OUT OF [...] VLDL 59 Performed By: #### L500.4100 #### [facility] [address] [place], [address] TROPONIN-I Collected: 09/21/2018 Status: F Source: PERNELL 1:20 AM [facility] [place] [place] REPOSITORY Order Comment: 'TROP' Serial specimen #1, #2 or #3: 2 TYPE CODE TESTS RESULT OUT OF RANGE REFERENCE UNITS LAB L501.4010 <0.045 ng/mL High alert 3.210 TROPONIN-I Result Comment: Critical Result(s) Called at: 02:09:22 09/21/2018 by: YANETH WHITTEN TROPONIN-I EXPECTED VALUES <0.045 Negative 0.045 - 0.590 Consistent with Cardiac Damage > OR = 0.600 Critical Value Not every elevated troponin is indicative of OH. These values should be used with clinical judgement in examining the patient's clinical picture for diagnosis. To establish a diagnosis of OH versus myocardial injury, there must be a demonstrated rise and/or fall in the troponin values, in addition to ischemic symptoms, EKG changes, new regional wall motion abnormality, and/or angiographical evidence. PLEASE NOTE: REFERENCE RANGES EDITED 18 Performed By: #### L501.4010 #### [facility] [address] [place], [address] EMERGENCY DEPARTMENT Observed: 09/21/2018 Status: F Source: HULL SUMMARY 12:36 AM [facility] [place] [place] REPOSITORY [facility] Medical Records Department [address] [place] [address] Emergency Department Summary 09/20/183 MR#: [id number] Acct: [id number] Name: DIONY CARRILLO Rep #: [id number] : 1965 53 From: Lexie Savage MD [...] Arben Richards DO at 22:04 EST Tel [phone], Service support , Medications Given Potassium Chloride 40 meq/ (Lactated Ringer's) 1,020 mls @ 250 mls/hr IV .Q4H5M TAB Last Admin: 09/20/18 23:27 Dose: 250 mls/hr [...] troponin, hyperglycemia This note was generated with [employer] dictation software. It may contain incorrect words, spelling, and punctuation that were not noted in review of the chart prior to signing ED Disposition - Plan for ED Patient: Disposition: Acute Care Hospital [facility] Chief Complaint: Hyperglycemia What to do if you have Problems For any increased pain, shortness of breath, bleeding, nausea or vomiting, chest pain, or any unexpected problems, contact your Primary Care Provider. Call [facility] ([phone]) or report to the closest Emergency Room. Call 911 if necessary. 09/21/18 0036 <Electronically signed by Lexie Savage MD> Date Lexie Savage MD Cosigner Signature (If Indicated): Date CC: Alessandro Eric MD BEDSIDE GLUCOSE Collected: 09/20/2018 Status: F Source: PERNELL 11:23 PM [facility] [place] [place] REPOSITORY TYPE CODE TESTS RESULT OUT OF REFERENCE UNITS RANGE LAB L501.080 70-110 mg/dL High BEDSIDE GLU 227 Result Comment: MANAGEMENT OF PATIENT CARE PER NURSING PROTOCOL Performed By: #### L501.080 #### [facility] Point of Care [address] [place] [address] VENOUS BLOOD GAS Collected: 09/20/2018 Status: F Source: HULL 10:13 PM [facility] [place] [place] REPOSITORY TYPE CODE TESTS RESULT OUT OF [...] CT ISTAT Performed By: #### L9000.0810 #### [facility] Point of Care [address] [place] [address] CBC W/DIFF, AUTOMATED Collected: 09/20/2018 Status: F Source: PERNELL 9:45 PM [facility] [place] [place] REPOSITORY TYPE CODE TESTS RESULT OUT OF [...] Lymph 2.21 Performed By: #### L100.0100 #### [facility] [address] [place], [place], [address] BASIC METABOLIC Collected: 09/20/2018 Status: F Source: HULL PROFILE ([facility]) 9:45 PM [facility] [place] [place] REPOSITORY TYPE CODE TESTS RESULT OUT OF [...] #### L500.2500, L500.3400, L501.2300, L501.4010, L501.5200 #### [facility] [address] [facility] [place], [address] LIVER PROFILE Collected: 09/20/2018 Status: F Source: HULL 9:45 PM [facility] [place] [place] REPOSITORY TYPE CODE TESTS RESULT OUT OF [...] #### L500.2500, L500.3400, L501.2300, L501.4010, L501.5200 #### [facility] [address] [facility] [place], [address] PHOSPHORUS Collected: 09/20/2018 Status: F Source: HULL 9:45 PM [facility] [place] [place] REPOSITORY TYPE CODE TESTS RESULT OUT OF RANGE REFERENCE UNITS LAB L501.2300 2.5-4.9 mg/dL Normal PHOS 3.4 Performed By: #### L500.2500, L500.3400, L501.2300, L501.4010, L501.5200 #### [facility] [address] [place], [address] TROPONIN-I Collected: 09/20/2018 Status: F Source: HULL 9:45 PM [facility] [place] [place] REPOSITORY TYPE CODE TESTS RESULT OUT OF RANGE REFERENCE UNITS LAB L501.4010 <0.045 ng/mL High 0.253 TROPONIN-I Result Comment: TROPONIN-I EXPECTED VALUES <0.045 Negative 0.045 - 0.590 Consistent with Cardiac Damage > OR = 0.600 Critical Value Not every elevated troponin is indicative of OH. These values should be used with clinical judgement in examining the patient's clinical picture for diagnosis. To establish a diagnosis of OH versus myocardial injury, there must be a demonstrated rise and/or fall in the troponin values, in addition to ischemic symptoms, EKG changes, new regional wall motion abnormality, and/or angiographical evidence. PLEASE NOTE: REFERENCE RANGES EDITED 18 Performed By: #### L500.2500, L500.3400, L501.2300, L501.4010, L501.5200 #### [facility] [address] [facility] [place], [address] MAGNESIUM Collected: 09/20/2018 Status: F Source: HULL 9:45 PM [facility] [place] [place] REPOSITORY TYPE CODE TESTS RESULT OUT OF RANGE REFERENCE UNITS LAB L501.5200 1.6-2.6 mg/dL Normal MG 1.9 Performed By: #### L500.2500, L500.3400, L501.2300, L501.4010, L501.5200 #### [facility] [address] [place], [address] CHEST 1 VIEW Observed: 09/20/2018 Status: F Source: HULL (PORTABLE) 9:24 PM [facility] [place] [place] REPOSITORY [facility] Imaging Services [address] [place] [address] Chest 1 View (Portable) MR#: [id number] Acct: [id number] Name: DIONY CARRILLO Rep #: [id number] : 1965 F 53 From: Arben Richards DO PCP: Alessandro Eric MD Status: REG ER Study: Chest 1 View (Portable) Date of Exam: 09/20/18 Exam# [id number] Ordering Dr: Lexie Savage MD STUDY: X-RAY [...] Arben Richards DO at 22:04 EST Tel [phone], Service support , CC: Lexie Savage MD; Alessandro Eric MD Car Designer: Signed BEDSIDE GLUCOSE Collected: 09/20/2018 Status: F Source: PERNELL 9:13 PM [facility] [place] [place] REPOSITORY TYPE CODE TESTS RESULT OUT OF REFERENCE UNITS RANGE LAB L501.080 70-110 mg/dL High alert BEDSIDE GLU > 500 Result Comment: Dr Ponce Followed MANAGEMENT OF PATIENT CARE PER NURSING PROTOCOL Performed By: #### L501.080 #### [facility] Point of Care [address] [place], [place] [address] PROGRESS Observed: 09/19/2018 Status: COMPLETED Source: MCADOO 2:29 PM [facility] REPOSITORY HNO ID: [id number] Author: Sendy Allen Service: (none) Author Type: [...] (H) 4.3 - 5.6 % Final Comment: [place] [employer] guidelines indicate that patients with [...] DPM CNOV Observed: 09/19/2018 Status: COMPLETED Source: [place] 1:10 PM [facility] REPOSITORY Office Visit (PODIWS) DIONY CARRILLO ([id number]) 1965 F Date Time Provider Department 09/19/18 1:10 PM SENDY ALLEN PODCLOTILDE During your visit today, we recorded the following information about you: Cecy Carbajal RN 09/19/2018 2:34 PM Signed AMB ROOMING INTAKE FLOWSHEET DATA Risk Screening Do you have concerns about personal safety or safety in the home?: No Patient presents for follow up of L lateral foot ulcer. Wound vac removed. Skin surrounding ulcer appears macerated. Foul odor noted. Bleeding noted. states home health nurses left wound vac [...] (H) 4.3 - 5.6 % Final Comment: [place] guidelines indicate that patients with [...] Sendy Allen DPM Referring Provider: SENDY ALLEN [[id number]] Allergies As of Date: 09/19/2018 Noted Allergy Reaction OXYCONTIN (OXYCODONE HCL) 09/27/2007 Comments: itch PENICILLINS 06/02/2007 4 - Hives REQUIP (ROPINIROLE) 11/18/2015 5 - Intolerance Comments: Vomiting, panic attacks, itching Date Reviewed: 09/19/2018 Reviewed by: Ccey Carbajal RN - Fully Assessed Reason for [...] 09/19/18 PROGRESS Observed: 09/19/2018 Status: COMPLETED Source: [facility] 1:04 PM [facility] REPOSITORY HNO ID: [id number] Author: Cecy Carbajal RN Service: (none) Author [...] n/v/f/c. PROGRESS Observed: 09/12/2018 Status: COMPLETED Source: [place] 2:10 PM [facility] REPOSITORY HNO ID: [id number] Author: Lilian Reynaga (Rt) Service: (none) Author Type: Fire Hydrant Mechanic Type: Progress Notes Filed: 09/12/2018 2:10 PM [...] 3V AP/LAT/OBL Observed: 09/12/2018 Status: F Source: MCADOO GABRIELA 2:09 PM [facility] REPOSITORY * * *Final Report* * * DATE OF EXAM: Sep 12 2018 2:09PM WRX [id number] - XR FOOT 3V AP/LAT/OBL GABRIELA [...] AND NO CHANGE COMPARED TO PREVIOUS EXAM. Car Designer: PSCB Transcribe Date/Time: Sep 13 2018 2:44P Dictated by : AMBROSIO IVEY MD This examination was interpreted and the report reviewed and electronically signed by: AMBROSIO IVEY MD on Sep 13 2018 2:50PM EST [id number] PROGRESS Observed: 09/12/2018 Status: COMPLETED Source: [facility] 2:08 PM [facility] REPOSITORY HNO ID: [id number] Author: Cecy Carbajal RN Service: (none) Author Type: (none) Type: Progress Notes Filed: 09/12/2018 2:08 PM Note Text: Wet to dry dressing placed on L foot. Secured with alison and BRANDO. PROGRESS Observed: 09/12/2018 Status: COMPLETED Source: MCADOO 1:08 PM [facility] REPOSITORY HNO ID: [id number] Author: Sendy Allen Service: (none) Author Type: [...] (H) 4.3 - 5.6 % Final Comment: [place] [employer] guidelines indicate that patients with [...] 7. F/u in 1 week BRITTANIE Stark Observed: 09/12/2018 Status: COMPLETED Source: [place] 12:55 PM [facility] REPOSITORY Office Visit (PODIWS) DIONY CARRILLO ([id number]) 1965 F Date Time Provider Department 09/12/18 [...] from the hospital. She was discharged from [facility] two days ago. She states she has home health through [facility] coming to her house for wound vac changes and therapy. She c/o intermittent pain to L foot that is relieved with rest and pain medication that was prescribed from [facility]. She admits to nausea and states she vomitted yesterday. She states she can't eat anything, everything makes her feel sick. Denies any fever. Sendy BRITTANIE Allen 09/12/2018 1:56 PM Signed Follow up podiatric [...] (H) 4.3 - 5.6 % Final Comment: [place] [employer] guidelines indicate that patients with [...] on L foot. Secured with alison and BRANDO. Referring Provider: SELF [[id number]] Allergies As of [...] mellitus, with fat layer exposed (HCC) [E11.621, L97422] Order(s):XR FOOT GENERAL 3V AP/LAT/OBL BILAT [[id number]] Order #: [id number] FUTURE Prescriptions as of 09/12/2018 Sig: ROPINIROLE [...] 09/12/18 PROGRESS Observed: 09/12/2018 Status: COMPLETED Source: [facility] 12:54 PM [facility] REPOSITORY O ID: [id number] Author: Cecy Carbajal RN Service: (none) Author [...] from the hospital. She was discharged from [facility] two days ago. She states she has home health through [facility] coming to her house for wound vac changes and therapy. She c/o intermittent pain to L foot that is relieved with rest and pain medication that was prescribed from [facility]. She admits to nausea and states she vomitted yesterday. She states she can't eat anything, everything makes her feel sick. Denies any fever. BEDSIDE GLUCOSE Collected: 09/09/2018 Status: F Source: PERNELL 11:34 AM [facility] [place] [place] REPOSITORY TYPE CODE TESTS RESULT OUT OF REFERENCE UNITS RANGE LAB L501.080 70-110 mg/dL High BEDSIDE GLU 123 Result Comment: MANAGEMENT OF PATIENT CARE PER NURSING PROTOCOL Performed By: #### L501.080 #### [facility] Point of Care [address] [place] [address] BEDSIDE GLUCOSE Collected: 09/09/2018 Status: F Source: PERNELL 6:46 AM [facility] [place] [place] REPOSITORY TYPE CODE TESTS RESULT OUT OF REFERENCE UNITS RANGE LAB L501.080 70-110 mg/dL High BEDSIDE GLU 237 Result Comment: MANAGEMENT OF PATIENT CARE PER NURSING PROTOCOL Performed By: #### L501.080 #### [facility] Point of Care [address] [place] [address] BEDSIDE GLUCOSE Collected: 09/08/2018 Status: F Source: PERNELL 8:48 PM [facility] [place] [place] REPOSITORY TYPE CODE TESTS RESULT OUT OF REFERENCE UNITS RANGE LAB L501.080 70-110 mg/dL High BEDSIDE GLU 359 Result Comment: MANAGEMENT OF PATIENT CARE PER NURSING PROTOCOL Performed By: #### L501.080 #### [facility] Point of Care [address] [place] [address] BEDSIDE GLUCOSE Collected: 09/08/2018 Status: F Source: PER[place]LL 4:51 PM [facility] [place] [place] REPOSITORY TYPE CODE TESTS RESULT OUT OF REFERENCE UNITS RANGE LAB L501.080 70-110 mg/dL High BEDSIDE GLU 191 Result Comment: MANAGEMENT OF PATIENT CARE PER NURSING PROTOCOL Performed By: #### L501.080 #### [facility] Point of Care [address] [place] [address] BEDSIDE GLUCOSE Collected: 09/08/2018 Status: F Source: HULL 11:14 AM [facility] [place] [place] REPOSITORY TYPE CODE TESTS RESULT OUT OF REFERENCE UNITS RANGE LAB L501.080 70-110 mg/dL High BEDSIDE GLU 222 Result Comment: MANAGEMENT OF PATIENT CARE PER NURSING PROTOCOL Performed By: #### L501.080 #### [facility] Point of Care [address] [place] [address] 12 LEAD ELECTROCARDIOGRAM Observed: 09/08/2018 Status: F Source: HULL 9:09 AM [facility] [place] [place] REPOSITORY [facility] Cardiovascular Services [address] [place] [address] 12 Lead EKG 08/23/18 1615 MR#: [id number] Acct: [id number] Name: DIONY CARRILLO Rep #: [id number] : 1965 53 From: Saravanan Jean Baptiste MD Attending Dr: Alessandro Perez DO Status: DIS IN Ordering Dr: Venu Mccoy MD Date: 08/23/18 Location: [facility] Sex: F C Admitted: 08/22/18 Test Reason [...] Confirmed by SARAVANAN JEAN BAPTISTE MD ([id number]), development editor MARLON GALEANA ([id number]) on 08/28/2018 1:54:48 PM Referred By: Annie Duran Confirmed By:SARAVANAN JEAN BAPTISTE MD 08/28/18 9368 Date Saravanan Jean Baptiste MD CC: Annie Duran MD; Venu Mccoy MD; Alessandro Eric MD; Alessandro Perez DO Signed BEDSIDE GLUCOSE Collected: 09/08/2018 Status: F Source: [place]LL 6:45 AM [facility] [place] [place] REPOSITORY TYPE CODE TESTS RESULT OUT OF REFERENCE UNITS RANGE LAB L501.080 70-110 mg/dL High BEDSIDE GLU 173 Result Comment: MANAGEMENT OF PATIENT CARE PER NURSING PROTOCOL Performed By: #### L501.080 #### [facility] Point of Care [address] [place] [address] BEDSIDE GLUCOSE Collected: 09/07/2018 Status: F Source: [place]LL 9:07 PM [facility] [place] [place] REPOSITORY TYPE CODE TESTS RESULT OUT OF REFERENCE UNITS RANGE LAB L501.080 70-110 mg/dL High BEDSIDE GLU 279 Result Comment: MANAGEMENT OF PATIENT CARE PER NURSING PROTOCOL Performed By: #### L501.080 #### [facility] Point of Care [address] [place] [address] DISCHARGE SUMMARY Observed: 09/07/2018 Status: F Source: [place] 8:03 PM [facility] [place] [place] REPOSITORY [facility] Medical Records Department [address] [place] [address] Discharge Summary 09/07/182000 MR#: [id number] Acct: [id number] Name: DIONY CARRILLO Rep #: [id number] : 1965 53 From: Chauncey Hassan MD PCP: Alessandro Eric MD Status: ADM IN Y Location: [place] [address] Discharge Date and Diagnosis Date of Admission: [...] Cardiac: Carb-Controlled Type of Dietary Supplement:: Glucerna Shake Is pt able to select menu?: Yes Diet Comments: 1600 calories Labs (Last 48 Hours) WBC RBC Hgb Hct MCV MCH MCHC RDW RDW Differential Plt Count MPV Immature Gran % (Auto) Consultations 09/05/18 Consult: Onc/Wound/apartment maintenance manager Routine Comment: Reason for Consult:: lt foot wound vac Operations: None, - Procedures: None Summary of Care Provided: The patient is a 53 year old Female with below past medical history significant for uncontrolled diabetes mellitus, admitted from [facility] for presumed right foot plantar abscess, [...] Days #10 tab PRN Reason: Severe Pain (6-07/19) Escitalopram Oxalate [Lexapro] 10 mg PO DAILY [...] HEALTH PROGRESS Observed: 09/07/2018 Status: F Source: HULL NOTE 8:03 PM [facility] [place] [place] REPOSITORY [facility] Medical Records Department [address] [place] [id number] Home Health Progress Note [id number] Encounter Encounter Date: 09/07/182002 MR#: [id number] Acct: [id number] Name: DIONY CARRILLO Rep #: [id number] : 1965 53 From: Chauncey Hassan MD PCP: Alessandro Eric MD Status: ADM IN Location: [place] [address] Home Health Note - Plan Overview of reason of hospitalization: The patient is a 53 year old Female with below past medical history significant for uncontrolled diabetes mellitus, admitted from [facility] for presumed right foot plantar abscess, no surgery performed, to [facility] with debility, here for rehabilitation, strengthening, wound [...] (Chronic) - Requirements and Reasons Disciplines Needed/Ordered: Care Home, Physical Therapy Reason for Disciplines: Disease Specific [...] DISCHARGE INSTRUCTION Observed: 09/07/2018 Status: F Source: HULL 8:01 PM [facility] [place] [place] REPOSITORY [facility] Medical Records Department [address] [place] [address] Instructions for Home/Discharge Instructions 09/07/181958 MR#: [id number] Acct: [id number] Name: DIONY CARRILLO Rep #: [id number] : 1965 53 From: Chauncey Hassan MD [...] Days #10 tab PRN Reason: Severe Pain (6-07/19) Escitalopram Oxalate [Lexapro] 10 mg PO DAILY [...] 09/07/2018 Status: F Source: PERNELL 4:31 PM [facility] [place] [place] REPOSITORY TYPE CODE TESTS RESULT OUT OF REFERENCE UNITS RANGE LAB L501.080 70-110 mg/dL High BEDSIDE GLU 212 Result Comment: MANAGEMENT OF PATIENT CARE PER NURSING PROTOCOL Performed By: #### L501.080 #### [facility] Point of Care [address] [place] [address] BEDSIDE GLUCOSE Collected: 09/07/2018 Status: F Source: PER[place] 10:36 AM [facility] [place] [place] REPOSITORY TYPE CODE TESTS RESULT OUT OF REFERENCE UNITS RANGE LAB L501.080 70-110 mg/dL High BEDSIDE GLU 233 Result Comment: MANAGEMENT OF PATIENT CARE PER NURSING PROTOCOL Performed By: #### L501.080 #### [facility] Point of Care [address] [place] [address] BEDSIDE GLUCOSE Collected: 09/07/2018 Status: F Source: PERNE[place] 5:43 AM [facility] [place] [place] REPOSITORY TYPE CODE TESTS RESULT OUT OF REFERENCE UNITS RANGE LAB L501.080 70-110 mg/dL High BEDSIDE GLU 196 Result Comment: MANAGEMENT OF PATIENT CARE PER NURSING PROTOCOL Performed By: #### L501.080 #### [facility] Point of Care [address] [place] [address] BEDSIDE GLUCOSE Collected: 09/06/2018 Status: F Source: HULL 9:29 PM [facility] [place] [place] REPOSITORY TYPE CODE TESTS RESULT OUT OF REFERENCE UNITS RANGE LAB L501.080 70-110 mg/dL High BEDSIDE GLU 256 Result Comment: MANAGEMENT OF PATIENT CARE PER NURSING PROTOCOL Performed By: #### L501.080 #### [facility] Point of Care [address] [facility] [place] [address] CONSULTATION Observed: 09/06/2018 Status: F Source: HULL 7:45 PM [facility] [place] [place] REPOSITORY [facility] Medical Records Department [address] [facility] [place] [address] Consultation 09/06/18 192 MR#: [id number] Acct: [id number] Name: DIONY CARRILLO Rep #: [id number] : 1965 53 From: Sendy Allen DPM PCP: Alessandro Eric MD Status: ADM IN Location: [place] [address] Reason for Consult Date of Consultation: 09/06/18 Reason for Consultation: b/l foot ulceration History of Present Illness: The patient is a 53 noncompliant diabetic female who has ulceration of b/l feet. she has ulceration of left foot treated with wound vac. she is tolerating wound vac changes nicely. she has no pain. patient has ulceration of right foot that she was sent to [facility]. It was determined that in absence of [...] 1994, section x2. 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: No pertinent CONTROL EQUIPMENT ELECTRICIAN history Lives: Alone Smoking Status: Never smoker [...] 09/06/2018 Status: F Source: [place] 5:04 PM [facility] [place] [place] REPOSITORY TYPE CODE TESTS RESULT OUT OF REFERENCE UNITS RANGE LAB L501.080 70-110 mg/dL High BEDSIDE GLU 172 Result Comment: MANAGEMENT OF PATIENT CARE PER NURSING PROTOCOL Performed By: #### L501.080 #### [facility] Point of Care [address] [place], [place] [address] BEDSIDE GLUCOSE Collected: 09/06/2018 Status: F Source: PERNE[place] 11:40 AM [facility] [place] [place] REPOSITORY TYPE CODE TESTS RESULT OUT OF REFERENCE UNITS RANGE LAB L501.080 70-110 mg/dL High BEDSIDE GLU 203 Result Comment: MANAGEMENT OF PATIENT CARE PER NURSING PROTOCOL Performed By: #### L501.080 #### [facility] Point of Care [address] [place] [address] BEDSIDE GLUCOSE Collected: 09/06/2018 Status: F Source: PER[place] 6:49 AM [facility] [place] [place] REPOSITORY TYPE CODE TESTS RESULT OUT OF REFERENCE UNITS RANGE LAB L501.080 70-110 mg/dL High BEDSIDE GLU 278 Result Comment: MANAGEMENT OF PATIENT CARE PER NURSING PROTOCOL Performed By: #### L501.080 #### [facility] Point of Care [address] [place] [address] BASIC METABOLIC Collected: 09/06/2018 Status: F Source: [place] PROFILE (BMP) 5:10 AM [facility] [place] [place] REPOSITORY TYPE CODE TESTS RESULT OUT OF [...] GAP 8 Performed By: #### L500.2500 #### [facility] [address] [place], [place], [address] CBC W/DIFF, AUTOMATED Collected: 09/06/2018 Status: F Source: PER[place] 5:10 AM [facility] [place] [place] REPOSITORY TYPE CODE TESTS RESULT OUT OF [...] Lymph 1.71 Performed By: #### L100.0100 #### [facility] [address] [place], [address] BEDSIDE GLUCOSE Collected: 09/05/2018 Status: F Source: HULL 8:53 PM [facility] [place] [place] REPOSITORY TYPE CODE TESTS RESULT OUT OF REFERENCE UNITS RANGE LAB L501.080 70-110 mg/dL High BEDSIDE GLU 178 Result Comment: MANAGEMENT OF PATIENT CARE PER NURSING PROTOCOL Performed By: #### L501.080 #### [facility] Point of Care [address] [place] [address] HISTORY AND PHYSICAL Observed: 09/05/2018 Status: F Source: HULL EXAM 7:54 PM [facility] [place] [place] REPOSITORY [facility] Medical Records Department [address] [place] [address] History and Physical 09/05/18 1937 MR#: [id number] Acct: [id number] Name: DIONY CARRILLO Rep #: [id number] : 1965 53 From: Chauncey Hassan MD PCP: Alessandro Eric MD Status: ADM IN Location: [place] [address] Problem List (1) Cellulitis Status: Chronic (2) [...] rehabilitation, strengthening, wound care. 08/29/2018 Transferred to [facility] for right plantar 5th metatarsal base [...] 1994, section x2. 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 Musculoskeletal: No Tenderness to Palpation of [...] significant for uncontrolled diabetes mellitus, admitted from [facility] for presumed right foot plantar abscess, [...] BEDSIDE GLUCOSE Collected: 09/05/2018 Status: F Source: HULL 5:11 PM [facility] [place] [place] REPOSITORY TYPE CODE TESTS RESULT OUT OF REFERENCE UNITS RANGE LAB L501.080 70-110 mg/dL High BEDSIDE GLU 189 Result Comment: Dr Ponce Followed MANAGEMENT OF PATIENT CARE PER NURSING PROTOCOL Performed By: #### L501.080 #### [facility] Point of Care [address] [place] [address] NURSING PROG Observed: 09/05/2018 Status: COMPLETED Source: MCADOO 1:29 PM [facility] REPOSITORY HNO ID: [id number] Author: Sharita (Rn) ABIGAIL Dejesus Service: (none) Author Type: Registered Nurse Type: Nursing Progress Note Filed: 09/05/2018 1:30 PM Note Text: Nursing Progress Note Patient Name: Diony Carrillo Patient Location: [place] [address]80- Daily Note:Pt dc to [facility]. Left the unit in stretcher. Pain med given. VS stable. DC paper and prescription reviewed with facility RN and pt. Verbalized understanding. No concerns or questions noted. This note was completed by: Sharita Dejesus RN CASE MANAGEM Observed: 09/05/2018 Status: COMPLETED Source: MCADOO 10:28 AM [facility] REPOSITORY HNO ID: [id number] Author: Caren Novoa Service: Care Management Author Type: Bioinformatics Software Engineer Type: Care Mgt Progress Note Filed: 09/05/2018 10:28 AM Note Text: CARE MANAGEMENT PROGRESS NOTE SERVICE DATE: 09/05/2018 SERVICE TIME: 1021 LOS: 6 days IM letter given to patient on 09/05/2018. SIGNATURE: Caren Sommer, PATIENT NAME: Diony Carrillo DATE: September 05, 2018 TIME: 10:28 AM PAGER/CONTACT #:[phone] PROGRESS Observed: 09/05/2018 Status: COMPLETED Source: MCADOO 10:00 AM [facility] REPOSITORY HNO ID: [id number] Author: Juanjo Tavares Service: (none) Author Type: [...] CONSULT PROG Observed: 09/05/2018 Status: COMPLETED Source: MCAD[place] 8:42 AM [facility] REPOSITORY HNO ID: [id number] Author: Eileen Merritt DPM Service: Podiatry Author Type: Resident Type: Consult Progress Note Filed: 09/05/2018 8:45 AM Note Text: PODIATRIC MEDICINE AND SURGERY CONSULT PROGRESS NOTE PODIATRY STAFF ONCOLOGY ACCOUNT SPECIALIST: Deepika Jensen DPM Please first page Podiatry [place] [phone] with questions/concerns. FOLLOW UP: Left foot open [...] wounds prior to wrapping with Kerlix and BRANDO. INTERVAL HISTORY: Afebrile and hemodynamically stable overnight [...] with VKA drugs, such as warfarin, the [place] [employer] 2012 Guideline recommends [...] Chest 2012, 141:7S-47S Luda RA, et al. [facility] 2017, 70: 252-289 APTT Date Value Ref [...] laboratory APTT reagent in use throughout the [facility]. Hemoglobin A1C (%) Date Value 08/30/2018 11.7 08/02/2018 12.2 03/03/2017 12.4 11/26/2016 11.2 01/01/2016 11.2 MICROBIOLOGY: IMAGING: VASCULAR STUDIES: Eileen Merritt DPM, PGY-1 Please first page Podiatry [place] [phone] with questions/concerns. September 05, 2018 8:45 AM CNDS Observed: 09/05/2018 Status: COMPLETED Source: MCADOO 8:37 AM [facility] REPOSITORY O ID: [id number] Author: Joana Grier Service: Hospital Medicine Author Type: Nurse Practitioner Type: Discharge Summaries Filed: 09/05/2018 8:47 AM Note Text: Attestation signed by Harper Thompson at 09/05/2018 4:04 PM [facility] STAFF PHYSICIAN NOTE OF PERSONAL INVOLVEMENT IN [...] 4 pm today ?? Harper Thompson MD [facility] [id number] DISCHARGE SUMMARY PATIENT NAME: Diony Carrillo ADMISSION [...] syndrome, who presented as a transfer from [facility] for further management of b/l diabetic foot ulcers. History obtained from patient, outside records, Epic review. The patient is followed in [place], [place] by Podiatry, Dr. Allen, for b/l [...] concern for abscess, referred for admission to [facility]. Cultures from 08/18 grew GPC, GBS. On [...] she was to be followed by her Rice Drier Operator. Repeat XR L foot with no sign of infection. XR R foot with new metatarsal lucency. 08/29/2018 MRI right foot with right foot plantar abscess, Dr. Allen recommended transfer to [facility]. The patient was HDS and afebrile on admission to [facility]. Podiatry and Infectious Disease were consulted. [...] PATIENT CONDITION AT DISCHARGE: Stable DISCHARGE DISPOSITION: Care Home Facility Discharge Physical Exam: VITAL SIGNS: BP [...] wounds prior to wrapping with Kerlix and BRANDO. ALLERGIES Allergen Reactions - Oxycontin [Oxycodon* itch [...] 8:30 AM [facility]UAN[facility] TAVARES OPHT i Bldg [phone] 09/06/2018 1:00 PM JUSTIN PHILIPPE (CUSTODY OFFICER) [facility] [place] [phone] 09/06/2018 2:25 PM ASSESSMENT PODI [facility] WSTR [facility] [place] [phone] 09/06/2018 2:45 PM SENDY ALLEN [facility] [place] [phone] 09/11/2018 2:00 PM ALESSANDRO ERIC [facility] [place] [phone] The patient's risk for 30-day readmission is [...] 05, 2018 TIME: 8:38 AM PAGER/CONTACT #: [phone] CASE MANAGEM Observed: 09/05/2018 Status: COMPLETED Source: MCADOO 7:51 AM [facility] REPOSITORY HNO ID: [id number] Author: Ginna Nieto (Sw) Service: Care Management Author Type: Server Developer Type: Care Mgt Progress Note Filed: 09/05/2018 8:19 AM Note Text: CARE MANAGEMENT DISCHARGE NOTE SERVICE DATE: 09/05/2018 SERVICE TIME: 7:51 AM LOS: 6 days Admission Date: 08/30/2018 DISCHARGE ARRANGEMENT (list agency and phone number) custodial facility: Was an expedited discharge program used? No Provider: [facility] CAREGIVER ASSESSMENT: Caregiver is ready, willing and able to meet the patient's needs as recommended by the inter-professional team? Yes Patient's transition needs and plan for meeting these needs: Pt will have needs met at SNF. Does the patient have an acute stroke diagnosis, or has the patient had a stroke during this admission? No HANDOFF COMMUNICATION: Alessandro Eric MD - (Inactive), In [facility] (Active) [address] [facility] [phone] (Ph) TRANSPORTATION ARRANGEMENTS: Mode of Transportation: Ambulance Transportation Agency and Phone #: Rafiq Newsome [phone] . Date of Trip: 09/05/18 Type of Service: BLS Non-emergency Is Patient Medicaid Pending: No Discussion of financial coverage occurred with Patient . Math Professor Location: [facility] Destination: [facility] Financial Care Management Responsibility: None Estimated Charge: n/a Approving Broom Stitcher: n/a ADDITIONAL CONTACT RESOURCES: Needs Prior to Discharge: Ready for Discharge Pt is medically ready. Pt will dc to [facility] via Rafiq Newsome at 1PM. RN to RN report number [phone]. DC instructions sent to facility. SIGNATURE: ERIN Fleming PATIENT NAME: Diony Carrillo DATE: September 05, 2018 TIME: 7:51 AM PAGER/CONTACT #: [phone] CBC Collected: 09/05/2018 Status: F Source: MCADOO 5:40 AM [facility] REPOSITORY TYPE CODE TESTS RESULT OUT OF [...] <0.01 Performed By: #### CBC, BMP #### [facility] [address] [place] [address] BASIC METABOLIC PANL Collected: 09/05/2018 Status: F Source: [place] 5:40 AM [facility] REPOSITORY TYPE CODE TESTS RESULT OUT OF REFERENCE UNITS RANGE LAB GLU 74-99 mg/dL High Glucose 202 Result Comment: The [place] Diabetes Association (ADA) provides guidance for cutoff [...] Standards of Medical Care in Diabetes 2016, [place] [employer]. Diabetes Care. 2016.39(Suppl 1). LAB [...] GFR. Performed By: #### CBC, BMP #### [facility] [address] [place], [place] [address] PROGRESS Observed: 09/04/2018 Status: COMPLETED Source: MCAD[place] 3:35 PM [facility] REPOSITORY HNO ID: [id number] Author: Joana Grier Service: Hospital Medicine Author Type: Nurse Practitioner Type: Progress Notes Filed: 09/04/2018 3:39 PM Note Text: HOSPITAL MEDICINE PROGRESS NOTE NIGHT AND WEEKEND COVERAGE: Days: 7:30am - 5:30pm, please page me for patient issues. Nights: 5:30pm - 7:30am, please page GIM overnight coverage pager [phone] SUBJECTIVE Interval HPI: Patient reports her eye [...] 120/48 Pulse: [phone] Resp: 16 16 17 18 Temp: 36.9 ?C (98.4 ?F) 36.9 ?C [...] syndrome, who presented as a transfer from [facility] for further management of b/l diabetic foot ulcers. History obtained from patient, outside records, Epic review. The patient is followed in [place], [place] by Podiatry, Dr. Allen, for b/l [...] concern for abscess, referred for admission to [facility]. Cultures from 08/18 grew GPC, GBS. On [...] she was to be followed by her Rice Drier Operator. Repeat XR L foot with no sign of infection. XR R foot with new metatarsal lucency. 08/29/2018 MRI right foot with right foot plantar abscess, Dr. Allen recommended transfer to [facility]. The patient was HDS and afebrile on admission to [facility]. Podiatry and ID were consulted. ASSESSMENT AND PLAN Active Hospital Problems as of 09/04/2018 Noted - Resolved Hospital Wound infection 08/30/2018 - Present Current Assessment AND Plan Presented as a transfer from [facility] for further management of b/l diabetic foot ulcers. Followed in [place], [place] by Podiatry, Dr. Allen 08/18 pt [...] concern for abscess, referred for admission to [facility]. Cultures from 08/18 grew GPC, GBS. On [...] she was to be followed by her Rice Drier Operator. Repeat XR L foot with no sign of infection. XR R foot with new metatarsal lucency. 08/29/2018 MRI right foot with right foot plantar abscess Dr. Allen recommended transfer to [facility] Pt HDS and afebrile on arrival to [facility] Plan: Podiatry and ID following Outside imaging uploaded, request to Radiology for 2nd read, spoke with [id number], non-specific fluid collection at 5th metatarsal stump; [...] they will follow up tomorrow morning with software qa system specialist Glucose control as above Artificial tears PRN [...] 04, 2018 TIME: 3:36 PM PAGER/CONTACT #: [phone] CASE MANAGEM Observed: 09/04/2018 Status: COMPLETED Source: MCADOO 1:53 PM [facility] REPOSITORY HNO ID: [id number] Author: Ginna Rosas) Emilia Service: Care Management Author Type: Server Developer Type: Care Mgt Progress Note Filed: 09/04/2018 1:55 PM Note Text: CARE MANAGEMENT PROGRESS NOTE SERVICE DATE: 09/04/2018 SERVICE TIME: 1:53 PM LOS: 5 days Needs Prior to Discharge: Ready for Discharge Pt has been accepted at [facility]. Pt will discharge to [facility] via Rafiq Newsome at 1pm Tuesday09/05/18. Primary team and pt updated. SIGNATURE: ERIN Fleming PATIENT NAME: Diony Carrillo DATE: September 04, 2018 TIME: 1:53 PM PAGER/CONTACT #: [phone] CONSULT PROG Observed: 09/04/2018 Status: COMPLETED Source: [place] 1:23 PM [facility] REPOSITORY HNO ID: [id number] Author: Eileen (Israel Merritt DPM Service: Podiatry Author Type: Resident Type: Consult Progress Note Filed: 09/04/2018 1:58 PM Note Text: PODIATRIC MEDICINE AND SURGERY CONSULT PROGRESS NOTE PODIATRY STAFF ONCOLOGY ACCOUNT SPECIALIST: Deepika Jensen DPM Please first page Podiatry [place] [phone] with questions/concerns. FOLLOW UP: Left foot open [...] wounds prior to wrapping with Kerlix and BRANDO. INTERVAL HISTORY: Afebrile and hemodynamically stable overnight [...] made to exclude PHI. LABS: Recent Labs 09/04/18 0556 09/02/18 0711 WBC 9.98 10.61 HB [...] with VKA drugs, such as warfarin, the [place] [employer]icians 2012 Guideline recommends [...] Chest 2012, 141:7S-47S Luda RA, et al. [facility] 2017, 70: 252-289 APTT Date Value Ref [...] laboratory APTT reagent in use throughout the [facility]. Hemoglobin A1C (%) Date Value 08/30/2018 11.7 08/02/2018 12.2 03/03/2017 12.4 11/26/2016 11.2 01/01/2016 11.2 MICROBIOLOGY: IMAGING: VASCULAR STUDIES: Eileen Merritt DPM, PGY-1 Please first page Podiatry [place] [phone] with questions/concerns. September 04, 2018 1:28 PM CONSULT PROG Observed: 09/04/2018 Status: COMPLETED Source: [place]AD[place] 11:28 AM [facility] REPOSITORY HNO ID: [id number] Author: Indio Moura Service: Ophthalmology Author Type: [...] send her over to [facility]; the front maker lockstitch number is [phone] (I think) but just please leave the floor 30 mins before the appt which should show in Epic. My note from today is also in our OPD Epic. Thank you. Indio Moura MD 09/04/2018 PROGRESS Observed: 09/04/2018 Status: COMPLETED Source: MCAD[place] 11:01 AM [facility] REPOSITORY HNO ID: [id number] Author: Indio Moura Service: (none) Author Type: [...] OF CARE Observed: 09/04/2018 Status: COMPLETED Source: [place] 9:32 AM [facility] REPOSITORY HNO ID: [id number] Author: Dallas Valderrama (Supervisor Accounts Receivable) Service: (none) Author Type: (none) Type: Plan of Care Filed: 09/04/2018 9:33 AM Note Text: EMBEDDED SOFTWARE ENGINEER BEDSIDE DELIVERY SURVEY 1. Patient to use [facility] Bedside Delivery - YES 2. If fax, patient would like us to fax prescriptions to Pharmacy of choice a. Pharmacy: b. Location: c. Phone: 3. Insurance card on file - YES 4. Credit card for payment - N/A No prescriptions yet. Please page [phone] upon discharge. CBC Collected: 09/04/2018 Status: F Source: MCADOO 5:56 AM [facility] REPOSITORY TYPE CODE TESTS RESULT OUT OF [...] <0.01 Performed By: #### CBC, BMP #### [facility] [address] [place], [place] [address] BASIC METABOLIC PANL Collected: 09/04/2018 Status: F Source: MCADOO 5:56 AM [facility] REPOSITORY TYPE CODE TESTS RESULT OUT OF REFERENCE UNITS RANGE LAB GLU 74-99 mg/dL High Glucose 246 Result Comment: The [place] Diabetes Association (ADA) provides guidance for cutoff [...] Standards of Medical Care in Diabetes 2016, [place] [employer]. Diabetes Care. 2016.39(Suppl 1). LAB [...] GFR. Performed By: #### CBC, BMP #### [facility] [address] [place] [address] CONSULT PROG Observed: 09/03/2018 Status: COMPLETED Source: [place] 5:08 PM [facility] REPOSITORY HNO ID: [id number] Author: Valencia Bo Service: Ophthalmology Author Type: Resident Type: [...] Valencia Bo MD Ophthalmology Resident, PGY-3 Pager [phone] On-call pager [phone] PROGRESS Observed: 09/03/2018 Status: COMPLETED Source: [place] 12:01 PM [facility] REPOSITORY HNO ID: [id number] Author: Dinorah Bermudez Service: Hospital Medicine Author Type: Nurse Practitioner Type: Progress Notes Filed: 09/03/2018 12:03 PM Note Text: SERVICE DATE: 09/03/2018 SERVICE TIME: 12:01 PM HOSPITAL MEDICINE PROGRESS NOTE NIGHT AND WEEKEND COVERAGE: Days: [phone], please page me for patient issues. Nights: [phone], please page Team JOE 2 - 8th floor: [phone] SUBJECTIVE Interval Events: awake, alert. No events [...] syndrome, who presented as a transfer from [facility] for further management of b/l diabetic foot ulcers. History obtained from patient, outside records, Epic review. The patient is followed in [place], [place] by Podiatry, Dr. Allen, for b/l [...] concern for abscess, referred for admission to [facility]. Cultures from 08/18 grew GPC, GBS. On [...] she was to be followed by her Rice Drier Operator. Repeat XR L foot with no sign of infection. XR R foot with new metatarsal lucency. 08/29/2018 MRI right foot with right foot plantar abscess, Dr. Allen recommended transfer to [facility]. The patient was HDS and afebrile on admission to [facility]. Podiatry and ID were consulted. ASSESSMENT AND PLAN Assessment AND Plan, all Hosp Problems Active Hospital Problems as of 09/03/2018 Noted - Resolved Hospital Wound infection 08/30/2018 - Present Current Assessment AND Plan Presented as a transfer from [facility] for further management of b/l diabetic foot ulcers. Followed in [place], [place] by Podiatry, Dr. Allen 08/18 pt [...] concern for abscess, referred for admission to [facility]. Cultures from 08/18 grew GPC, GBS. On [...] she was to be followed by her Rice Drier Operator. Repeat XR L foot with no sign of infection. XR R foot with new metatarsal lucency. 08/29/2018 MRI right foot with right foot plantar abscess Dr. Allen recommended transfer to [facility] Pt HDS and afebrile on arrival to [facility] Plan: Podiatry and ID following Outside imaging uploaded, request to Radiology for 2nd read, spoke with [id number]/23, non-specific fluid collection at 5th metatarsal stump; [...] VTE Prophylaxis/Anticoagulants 08/30/18 1345 pneumatic compression stockings (sd,oh) VTE Prophylaxis: VTE prophylaxis appropriate Plan of care discussed with: Attending, Patient and RN SIGNATURE: Dinorah Bermudez APRN.CNP PATIENT NAME: Diony Carrillo DATE: September 03, 2018 TIME: 12:01 PM PAGER/CONTACT #: [phone] PLAN OF CARE Observed: 09/03/2018 Status: COMPLETED Source: [facility] 9:22 AM [facility] REPOSITORY O ID: [id number] Author: Eileen Merritt DPM Service: Podiatry Author Type: Resident Type: Plan of Care Filed: 09/03/2018 9:25 AM Note Text: Right foot dressing changed today with betadine, restore silver, gauze, kerlix. No signs of infection to right foot. Pt is okay to be discharged from a podiatry standpoint. Please page [phone] if questions about getting veraflo vac vs. [...] wounds prior to wrapping with Kerlix and BRANDO. Eileen Merritt DPM, PGY-1 Please page #[phone] on weekends and after 5PM September 03, 2018 9:24 AM FECAL OCCULT BLD Collected: 09/02/2018 Status: F Source: [facility] 4:23 PM [facility] REPOSITORY TYPE CODE TESTS RESULT OUT OF RANGE REFERENCE UNITS LAB IFO Negative Specimen Abnormal Immuno rejected because Alert FOB a stool sample was received in a container. The test can only be performed if stool is placed into the IFOBT collection vial (Ceballos no. [id number]) at the time of collection. Submit vial to the laboratory. Result Comment: Account Credited Performed By: #### IFOBT #### [facility] [address] [place], [place] [address] CONSULT PROG Observed: 09/02/2018 Status: COMPLETED Source: [facility] 1:10 PM [facility] REPOSITORY HNO ID: [id number] Author: Eileen (Israel Merritt DPM Service: Podiatry Author Type: Resident Type: Consult Progress Note Filed: 09/02/2018 1:15 PM Note Text: PODIATRIC MEDICINE AND SURGERY CONSULT PROGRESS NOTE PODIATRY STAFF ONCOLOGY ACCOUNT SPECIALIST: Sarah Simons DPM Please first page Podiatry [place] [phone] with questions/concerns. FOLLOW UP: Left foot open [...] wounds prior to wrapping with Kerlix and BRANDO. INTERVAL HISTORY: Afebrile and hemodynamically stable overnight [...] with VKA drugs, such as warfarin, the [place] [employer] 2012 Guideline recommends [...] Chest 2012, 141:7S-47S Luda RA, et al. [facility] 2017, 70: 252-289 APTT Date Value Ref [...] laboratory APTT reagent in use throughout the [facility]. Hemoglobin A1C (%) Date Value 08/30/2018 11.7 08/02/2018 12.2 03/03/2017 12.4 11/26/2016 11.2 01/01/2016 11.2 MICROBIOLOGY: IMAGING: VASCULAR STUDIES: Eileen Merritt DPM, PGY-1 Please first page Podiatry [place] [phone] with questions/concerns. September 02, 2018 12:07 PM PROGRESS Observed: 09/02/2018 Status: COMPLETED Source: [facility] 11:34 AM [facility] REPOSIT[facility] HNO ID: [id number] Author: Dinorah Bermudez Service: Hospital Medicine Author Type: Nurse Practitioner Type: Progress Notes Filed: 09/02/2018 11:35 AM Note Text: SERVICE DATE: 09/02/2018 SERVICE TIME: 11:35 AM HOSPITAL MEDICINE PROGRESS NOTE NIGHT AND WEEKEND COVERAGE: Days: [phone], please page me for patient issues. Nights: [phone], please page Team GIM 2 - 8th floor: [phone] SUBJECTIVE Interval Events: awake, alert. Reports diarrhea [...] syndrome, who presented as a transfer from [facility] for further management of b/l diabetic foot ulcers. History obtained from patient, outside records, Epic review. The patient is followed in [place], [place] by Podiatry, Dr. Allen, for b/l [...] concern for abscess, referred for admission to [facility]. Cultures from 08/18 grew GPC, GBS. On [...] she was to be followed by her Rice Drier Operator. Repeat XR L foot with no sign of infection. XR R foot with new metatarsal lucency. 08/29/2018 MRI right foot with right foot plantar abscess, Dr. Allen recommended transfer to [facility]. The patient was HDS and afebrile on admission to [facility]. Podiatry and ID were consulted. ASSESSMENT AND PLAN Assessment AND Plan, all Hosp Problems Active Hospital Problems as of 09/02/2018 Noted - Resolved Hospital Wound infection 08/30/2018 - Present Current Assessment AND Plan Presented as a transfer from [facility] for further management of b/l diabetic foot ulcers. Followed in [place], [place] by Podiatry, Dr. Allen 08/18 pt [...] concern for abscess, referred for admission to [facility]. Cultures from 08/18 grew GPC, GBS. On [...] she was to be followed by her Rice Drier Operator. Repeat XR L foot with no sign of infection. XR R foot with new metatarsal lucency. 08/29/2018 MRI right foot with right foot plantar abscess Dr. Allen recommended transfer to [facility] Pt HDS and afebrile on arrival to [facility] Plan: Podiatry and ID following Outside imaging uploaded, request to Radiology for 2nd read, spoke with Nendsctno10/23, non-specific fluid collection at 5th metatarsal stump; [...] VTE Prophylaxis/Anticoagulants 08/30/18 1345 pneumatic compression stockings (sd,nm) VTE Prophylaxis: VTE prophylaxis appropriate Plan of care discussed with: Attending, Patient, Case Management, RN and Consultants: Podiatry SIGNATURE: Dinorah Bermudez APRN.CNP PATIENT NAME: Diony Carrillo DATE: September 02, 2018 TIME: 11:35 AM PAGER/CONTACT #: [phone] CONSULT PROG Observed: 09/02/2018 Status: COMPLETED Source: [facility] 9:21 AM [facility] REPOSITORY HNO ID: [id number] Author: Courtney Mcclellan Service: Infectious Disease Author [...] 15.9 07/22/2014 9.3 MICROBIOLOGY DATA: 08/23/18 at [facility] left foot abscess: MSSA and group B strep ( susc to all, not clinda) ? 5th metatarsal bone bx- no growth ? ? RADIOLOGY DATA: MRI second read pending ? ASSESSMENT: Ms. Carrillo is a 53 year old female with PMhx significant for DM2, charcot neuroarthropathy, peripheral neuropathy, DJD, tranferred from OSH for management of DFI. 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 Treated with bactrim, [...] sign off Signature: Courtney Mcclellan MD Pager: [phone] Date and Time of Service: September 02, 2018 C DIFFICILE PCR Collected: 09/02/2018 Status: F Source: [facility] 7:35 AM [facility] REPOSITORY TYPE CODE TESTS RESULT OUT OF REFERENCE UNITS RANGE LAB CDFRES C difficile PCR Negative for C. difficile toxin by PCR Performed By: #### CDPCR #### [facility] [address], [place] [address] CBC AND DIFFERENTIAL Collected: 09/02/2018 Status: F Source: [facility] 7:11 AM [facility] REPOSITORY TYPE CODE TESTS RESULT OUT OF [...] k/uL Abs Lymph 1.60 LAB AMONO % [place]% 6.3 LAB AAMONO <0.87 k/uL Abs [place] 0.67 LAB AEOS % Eosin% 1.6 LAB AAEOS <0.46 k/uL Abs Eosin 0.17 LAB ABASO % Baso% 0.3 LAB AABASO <0.11 k/uL Abs Baso 0.03 LAB AUNRBC 0 /100 WBC NRBCs 0.0 LAB ABNRBC <0.01 k/uL Absolute nRBC <0.01 LAB DTYP DTYPE Auto Diff Performed By: #### CBCDIF, CMP #### [facility] [employer] [address] [place] [id number] COMP METABOLIC PANEL Collected: 09/02/2018 Status: F Source: [facility] 7:11 AM [facility] REPOSITORY TYPE CODE TESTS RESULT OUT OF REFERENCE UNITS RANGE LAB TP 6.3-8.0 g/dL Protein, Total 7.6 LAB ALB 3.9-4.9 g/dL Albumin 4.0 LAB CA 8.5-10.2 mg/dL Calcium, Total 9.5 LAB TBIL 0.2-1.3 mg/dL Bilirubin, Total 0.2 LAB ALKP 34-123 U/L Alkaline Phosphatase 94 LAB AST 13-35 U/L AST High 39 LAB GLU 74-99 mg/dL Glucose High 144 Result Comment: The [place] [employer] (ADA) provides guidance for cutoff [...] Standards of Medical Care in Diabetes 2016, [place] [employer]. Diabetes Care. 2016.39(Suppl 1). LAB [...] By: #### CBCDIF, CMP #### [facility] [address] [place] [address] NURSING PROG Observed: 09/02/2018 Status: COMPLETED Source: [facility] 6:17 AM [facility] REPOSITORY HNO ID: [id number] Author: Emery Tejada (Rn) ABIGAIL Ta Service: (none) Author Type: Registered Nurse Type: Nursing Progress Note Filed: 09/02/2018 6:18 AM Note Text: Nursing Progress Note Patient Name: Diony Carrillo Patient Location: [place] [address] Daily Note:09/02/2018 @ 0532 c/o diarrhea and cramp like abdominal pain GIM paged @ 0617 pt still c/o c/o diarrhea and cramp like abdominal pain AND diarrhea GIM paged again This note was completed by: Emery Ta RN THERAPY NT Observed: 09/01/2018 Status: COMPLETED Source: [facility] 4:26 PM [facility] REPOSITORY HNO ID: [id number] Author: Funmi (Pt) Semaj Service: Physical Therapy Author Type: Physical Therapist Type: Therapy (PT/OT/Speech/Resp) Filed: 09/01/2018 5:08 PM Note Text: Physical Therapy Evaluation SERVICE DATE: 09/01/2018 SERVICE TIME: 1616 to 1642 ROOM: [place] [address] Recommended Discharge Disposition: Subacute/SNF Recommended Discharge Disposition [...] home 5 days prior to admission to [facility] 2 wks ago, and had difficulty managing [...] Diagnosis: Reduced mobility-other Interventions Provided: Evaluation;Therapeutic Activity (90182) $ Evaluation-Low (83847) Billed Units: 1 unit Therapeutic Activity (51850) Treatment Minutes: 8 1 unit Skilled Intervention(s): [...] CODE: PT 6 Clicks Score: 14 (09/01/18 1616) Mobility: Walking and Moving Around Current Status (G8978): CL (09/01/18 1616) Mobility: Walking and Moving Around Goal Status (G8979): CK (09/01/18 1616) Based on clinical assessment and the score [...] concern for abscess, referred for admission to [facility]. On admission 08/22 she was placed on [...] vac for her left foot while at [facility]. Patient was discharged to SNF 08/25, xrays [...] Environment Patient Lives With: Self/Alone (spouse in [place]) Assistance Available: None Entry To Home: Stairs Number Of Stairs Into Home: 3 Number Of Stairs To Bed/Bath: 0 Equipment Owned: Commode-Bedside;Wheelchair;Rollator;Wheeled Walker Prior Functional Level: Required Assistance Prior Functional Level Comments: At [facility] prior to admission; only home 5 days [...] PM NUTRITION Observed: 09/01/2018 Status: COMPLETED Source: [facility] 4:25 PM [facility] REPOSITORY O ID: [id number] Author: Tiffany Hernandez Service: Nutrition Therapy Author Type: Registered Dietitian Type: Nutrition Filed: 09/01/2018 4:41 PM Note Text: NUTRITION THERAPY SCREENING NOTE SERVICE DATE: 09/01/2018 SERVICE TIME: 142 NUTRITION CARE PLAN Patient's weight is stable [...] b/l feet . Plans to return to [facility] with OSH. Pt reports she is eating [...] Type: Initial Assess/15 min 2 units SIGNATURE: Tiffany Hernandez, MS RDN-AP LD [facility] PATIENT NAME: Diony Carrillo DATE: September 01, 2018 TIME: 4:25 PM PAGER: [phone] PROGRESS Observed: 09/01/2018 Status: COMPLETED Source: [facility] 2:43 PM [facility] REPOSITORY HNO ID: [id number] Author: Dinorah Bermudez Service: Hospital Medicine Author Type: Nurse Practitioner Type: Progress Notes Filed: 09/01/2018 2:45 PM Note Text: SERVICE DATE: 09/01/2018 SERVICE TIME: 2:43 PM HOSPITAL MEDICINE PROGRESS NOTE NIGHT AND WEEKEND COVERAGE: Days: [phone], please page me for patient issues. Nights: [phone], please page Team GI 2 - 8th floor: [phone] SUBJECTIVE Interval Events: awake, alert, no events [...] tests reviewed: Most recent labs Recent Labs 09/01/18 0621 08/31/18 0557 08/30/18 1447 WBC 10.50 10.89 8.48 RBC 3.79* 3.67* 3.86* HB 10.8* 10.4* 10.9* HCT 33.9* 32.9* 34.6* PLT 342 314 369 MCV 89.4 89.6 89.6 MCH 28.5 28.3 28.2 MPV 10.6 10.6 10.2 ABSNEUT 7.79* 7.90* 6.15 NEUTP 74.2 72.5 72.5 LYMPHP 16.2 17.4 17.8 MONOP 7.3 7.4 7.0 EODINP 1.8 2.1 2.2 Recent Labs 09/01/18 0608/31/18 0557 08/30/18 1447 GLUC 298* 253* 219* [...] syndrome, who presented as a transfer from [facility] for further management of b/l diabetic foot ulcers. History obtained from patient, outside records, Epic review. The patient is followed in [place], [place] by Podiatry, Dr. Allen, for b/l [...] concern for abscess, referred for admission to [facility]. Cultures from 08/18 grew GPC, GBS. On [...] she was to be followed by her Rice Drier Operator. Repeat XR L foot with no sign of infection. XR R foot with new metatarsal lucency. 08/29/2018 MRI right foot with right foot plantar abscess, Dr. Allen recommended transfer to [facility]. The patient was HDS and afebrile on admission to [facility]. Podiatry and ID were consulted. ASSESSMENT AND PLAN Assessment AND Plan, all Hosp Problems Active Hospital Problems as of 09/01/2018 Noted - Resolved Hospital Wound infection 08/30/2018 - Present Current Assessment AND Plan Presented as a transfer from [facility] for further management of b/l diabetic foot ulcers. Followed in [place], [place] by Podiatry, Dr. Allen 08/18 pt [...] concern for abscess, referred for admission to [facility]. Cultures from 08/18 grew GPC, GBS. On [...] she was to be followed by her Rice Drier Operator. Repeat XR L foot with no sign of infection. XR R foot with new metatarsal lucency. 08/29/2018 MRI right foot with right foot plantar abscess Dr. Allen recommended transfer to [facility] Pt HDS and afebrile on arrival [...] stockings (fl,oh) VTE Prophylaxis: VTE prophylaxis appropriate Plan of care discussed with: Attending, Patient, Case Management, RN and Consultants: Radiology, Podiatry SIGNATURE: Dinorah Bermudez APRN.CNP PATIENT NAME: Diony Carrillo DATE: September 01, 2018 TIME: 2:43 PM PAGER/CONTACT #: [phone] CASE MGT INIT Observed: 09/01/2018 Status: COMPLETED Source: [facility] 2:34 PM [facility] REPOSITORY HNO ID: [id number] Author: Ginna Nieto (Sw) Service: Care Management Author Type: Server Developer Type: Care Mgt Initial Assessment Filed: 09/01/2018 2:55 PM Note Text: CARE MANAGEMENT: ASSESSMENT AND DISCHARGE PLAN NO WEEKEND DISCHARGE SERVICE DATE: 09/01/2018 SERVICE TIME: 2:05 PM PRIMARY CARE PHYSICIAN: Alessandro Eric MD ADMISSION STATUS: Inpatient Needs Prior to Discharge: To Be Determined MEDICAL: Patient/Repairer Pump Stated Goals: To have reduction in pain [...] Wheelchair Has the Patient Been in a Care Home Facility in the Past 30 days? Yes. Where and Dates: [facility] SOCIAL: Living Arrangement: Home Lives With: Alone Financial Resources: Disabled Primary Contact: Extended Emergency Contact Information Primary Emergency Contact: Marixa Hernandez Mobile Relation: Daughter Secondary Emergency Contact: Caren [...] 4 I feel financially burdened by my ptf-li-midicb expenses for my prescription medication: Disagree mostly [...] Needs: None FREEDOM OF CHOICE EXPLAINED: Preference: [facility] POTENTIAL TRANSITION PLANS Care Home Facility/Intermediate Care Facility Pt is from [facility], pt would like to return at time of dc. Pt stated her is in [place]; is working on getting his VISA. Pt stated her daughter is unreliable and cannot help her around the home or to get to her appointments. Pt stated at the SNF they are working on setting her up with transport for her to get to and from her appointments as long as they are in the [place] area. Pt stated they are also working on getting her setup with HHC and LEAD MACHINIST for when she returns home. Referral sent to [facility]. SW left a message at admissions inquiring if pt could return to SNF this weekend. SW will resume care of pt Tuesday09/04/18. SIGNATURE: ERIN Fleming PATIENT NAME: Diony Carrillo DATE: September 01, 2018 TIME: 2:34 PM PAGER/CONTACT #: [phone] CONSULT PROG Observed: 09/01/2018 Status: COMPLETED Source: [facility] 1:38 PM [facility] REPOSITORY HNO ID: [id number] Author: Eileen Merritt DPM Service: Podiatry Author Type: Resident Type: Consult Progress Note Filed: 09/01/2018 3:07 PM Note Text: PODIATRIC MEDICINE AND SURGERY CONSULT PROGRESS NOTE PODIATRY STAFF ONCOLOGY ACCOUNT SPECIALIST: Sarah Simons DPM Please first page Podiatry [place] [phone] with questions/concerns. FOLLOW UP: Left foot open [...] with VKA drugs, such as warfarin, the [place] [employer] 2012 Guideline recommends [...] Chest 2012, 141:7S-47S Luda RA, et al. [facility] 2017, 70: 252-289 APTT Date Value Ref [...] laboratory APTT reagent in use throughout the [facility]. Hemoglobin A1C (%) Date Value 08/30/2018 11.7 08/02/2018 12.2 03/03/2017 12.4 11/26/2016 11.2 01/01/2016 11.2 MICROBIOLOGY: IMAGING: VASCULAR STUDIES: Eileen Merritt DPM, PGY-1 Please first page Podiatry [place] [phone] with questions/concerns. August 31, 2018 12:07 PM CONSULT Observed: 09/01/2018 Status: COMPLETED Source: [facility] 12:09 PM [facility] REPOSITORY HNO ID: [id number] Author: Indio Moura Service: Ophthalmology Author Type: [...] 09/01/2018 PROGRESS Observed: 09/01/2018 Status: COMPLETED Source: [facility] 10:22 AM [facility] REPOSITORY HNO ID: [id number] Author: Kike (Lelia) Radha Service: (none) Author [...] THERAPY NT Observed: 09/01/2018 Status: COMPLETED Source: [facility] 10:15 AM [facility] REPOSITORY HNO ID: [id number] Author: Funmi (Enrique) Semaj Service: Physical Therapy Author Type: Physical Therapist Type: Therapy (PT/OT/Speech/Resp) Filed: 09/01/2018 10:16 AM Note Text: PHYSICAL THERAPY MISSED VISIT SERVICE DATE: 09/01/2018 SERVICE TIME: 1012 to 1012 ROOM: [place] [address] ([address]) Attempted Evaluation. Patient not seen due to Test/Procedure. Will f/u as able. Would like to clarify WB status with podiatry as note indicates NWB to B/L LE. Use of post op shoe while ambulating. Ok to use walker, crutches, or other assistive device(s) to use the restroom or for Physical Therapy SIGNATURE: Funmi Cha, PT PATIENT NAME: Diony Carrillo DATE: September 01, 2018 TIME: 10:15 AM CONSULT PROG Observed: 09/01/2018 Status: COMPLETED Source: [facility] 10:14 AM [facility] REPOSITORY HNO ID: [id number] Author: Courtney Mcclellan Service: Infectious Disease Author [...] 15.9 07/22/2014 9.3 MICROBIOLOGY DATA: 08/23/18 at [facility] left foot abscess: MSSA and group B strep ( susc to all, not clinda) 5th metatarsal bone bx- no growth RADIOLOGY DATA: MRI second read pending ASSESSMENT: Ms. Carrillo is a 53 year old female with PMhx significant for DM2, charcot neuroarthropathy, peripheral neuropathy, DJD, tranferred from OSH for management of DFI. 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 Treated with bactrim, flagyl and keflex but was nauseated on these. Repeat imaging 08/29 with ? abscess of right plantar foot. This is being reevaluated. ? RECOMMENDATIONS: continue to hold abx. If repeat read is negative, do not see need for further abx as bone cxs were negative at surgery. 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 Signature: Courtney Mcclellan MD Pager: [phone] Date and Time of Service: September 01, 2018 CBC AND DIFFERENTIAL Collected: 09/01/2018 Status: F Source: [facility] 6:21 AM [facility] REPOSITORY TYPE CODE TESTS RESULT OUT OF [...] k/uL Abs Lymph 1.70 LAB AMONO % [place]% 7.3 LAB AAMONO <0.87 k/uL Abs [place] 0.77 LAB AEOS % Eosin% 1.8 LAB AAEOS <0.46 k/uL Abs Eosin 0.19 LAB ABASO % Baso% 0.5 LAB AABASO <0.11 k/uL Abs Baso 0.05 LAB AUNRBC 0 /100 WBC NRBCs 0.0 LAB ABNRBC <0.01 k/uL Absolute nRBC <0.01 LAB DTYP DTYPE Auto Diff Performed By: #### CBCDIF, CMP #### [facility] [address] [place] [address] COMP METABOLIC PANEL Collected: 09/01/2018 Status: F Source: [facility] 6:21 AM [facility] REPOSITORY TYPE CODE TESTS RESULT OUT OF REFERENCE UNITS RANGE LAB TP 6.3-8.0 g/dL Protein, Total 7.2 LAB ALB 3.9-4.9 g/dL Low Albumin 3.4 LAB CA 8.5-10.2 mg/dL Calcium, Total 9.1 LAB TBIL 0.2-1.3 mg/dL Bilirubin, Total 0.2 LAB ALKP 34-123 U/L Alkaline Phosphatase 89 LAB AST 13-35 U/L AST High 43 LAB GLU 74-99 mg/dL Glucose High 298 Result Comment: The [place] Diabetes [employer] (ADA) provides guidance for cutoff [...] Standards of Medical Care in Diabetes 2016, [place] [employer]. Diabetes Care. 2016.39(Suppl 1). LAB [...] By: #### CBCDIF, CMP #### [facility] [address] [place] [id number] PROGRESS Observed: 08/31/2018 Status: COMPLETED Source: [facility] 2:56 PM [facility] REPOSITORY HNO ID: [id number] Author: Valencia (Res) Anupam Service: (none) Author Type: Resident Type: Progress [...] CONSULT PROG Observed: 08/31/2018 Status: COMPLETED Source: [facility] 12:07 PM [facility] REPOSITORY HNO ID: [id number] Author: Eileen (ResRashaun Merritt DPM Service: Podiatry Author Type: Resident Type: Consult Progress Note Filed: 08/31/2018 12:13 PM Note Text: PODIATRIC MEDICINE AND SURGERY CONSULT PROGRESS NOTE PODIATRY STAFF ONCOLOGY ACCOUNT SPECIALIST: Sarah Simons DPM Please first page Podiatry [place] [phone] with questions/concerns. FOLLOW UP: Left foot open [...] with VKA drugs, such as warfarin, the [place] [employer] 2012 Guideline recommends [...] 2.5 to 3.5 (target INR of 3). Kurtyabrett GH, et al. Chest 2012, 141:7S-47S Luda RA, et al. [facility] 2017, 70: 252-289 APTT Date Value Ref [...] laboratory APTT reagent in use throughout the [facility]. Hemoglobin A1C (%) Date Value 08/30/2018 11.7 08/02/2018 12.2 03/03/2017 12.4 11/26/2016 11.2 01/01/2016 11.2 MICROBIOLOGY: IMAGING: VASCULAR STUDIES: Eileen Merirtt DPM, PGY-1 Please first page Podiatry [place] [phone] with questions/concerns. August 31, 2018 12:07 PM PROGRESS Observed: 08/31/2018 Status: COMPLETED Source: [facility] 10:39 AM [facility] REPOSITORY HNO ID: [id number] Author: Dinorah Bermudez Service: Hospital Medicine Author Type: Nurse Practitioner Type: Progress Notes Filed: 08/31/2018 10:39 AM Note Text: SERVICE DATE: 08/31/2018 SERVICE TIME: 10:39 AM HOSPITAL MEDICINE PROGRESS NOTE NIGHT AND WEEKEND COVERAGE: Days: [phone], please page me for patient issues. Nights: [phone], please page Team GIM 2 - 8th floor: [phone] SUBJECTIVE Interval Events: awake, alert, no events [...] tests reviewed: Most recent labs Recent Labs 08/31/18 0557 08/30/18 1447 08/02/18 1210 WBC 10.89 8.48 [...] 1210 GLUC 253* 219* Test reordered by [facility]. NA 137 137 Test reordered by [facility]. K 4.8 4.6 Test reordered by [facility] [facility]. CHLOR 99 96* Test reordered by [facility]. CO2 26 27 Test reordered by [facility]. CREAT 0.86 0.83 Test reordered by [facility]. BUN 16 20 Test reordered by [facility]. ANION 12 14 Test reordered by [facility]. CA 9.1 9.6 Test reordered by [facility]. TPROT 6.7 7.2 Test reordered by [facility]. ALB 3.3* 3.9 Test reordered by [facility]. TBILI <0.2* 0.2 Test reordered by [facility]. ALKPHOS 85 90 Test reordered by [facility]. AST 62* 83* Test reordered by [facility]. ALT 68* 77* Test reordered by [facility]. Most recent labs CARE COORDINATION: Diony Carrillo is a 53 year-old female with PMH significant for uncontrolled DM2 (HgbA1c 12.2%), diabetic neuropathy, s/p R fifth ray amputation, Charcot deformities b/l, medical non-compliance, hyperlipidemia, restless leg syndrome, who presented as a transfer from [facility] for further management of b/l diabetic foot ulcers. History obtained from patient, outside records, Epic review. The patient is followed in [place], [place] by Podiatry, Dr. Allen, for b/l [...] concern for abscess, referred for admission to [facility]. Cultures from 08/18 grew GPC, GBS. On [...] she was to be followed by her Rice Drier Operator. Repeat XR L foot with no sign of infection. XR R foot with new metatarsal lucency. 08/29/2018 MRI right foot with right foot plantar abscess, Dr. Allen recommended transfer to [facility]. The patient was HDS and afebrile on admission to [facility]. Podiatry and ID were consulted. ASSESSMENT AND PLAN Assessment AND Plan, all Hosp Problems Active Hospital Problems as of 08/31/2018 Noted - Resolved Hospital Wound infection 08/30/2018 - Present Current Assessment AND Plan Presented as a transfer from [facility] for further management of b/l diabetic foot ulcers. Followed in [place], [place] by Podiatry, Dr. Allen 08/18 pt [...] concern for abscess, referred for admission to [facility]. Cultures from 08/18 grew GPC, GBS. On [...] she was to be followed by her Rice Drier Operator. Repeat XR L foot with no sign of infection. XR R foot with new metatarsal lucency. 08/29/2018 MRI right foot with right foot plantar abscess Dr. Allen recommended transfer to [facility] Pt HDS and afebrile on arrival [...] VTE Prophylaxis/Anticoagulants 08/30/18 1345 pneumatic compression stockings (sd,oh) VTE Prophylaxis: VTE prophylaxis appropriate Plan of care discussed with: Attending, Patient, RN and Consultants: Radiology, Ophthal SIGNATURE: Dinorah Bermudez APRN.CNP PATIENT NAME: Diony Carrillo DATE: August 31, 2018 TIME: 10:39 AM PAGER/CONTACT #: [phone] COMP METABOLIC PANEL Collected: 08/31/2018 Status: F Source: MCADOO 5:57 AM [facility] REPOSITORY TYPE CODE TESTS RESULT OUT OF REFERENCE UNITS RANGE LAB TP 6.3-8.0 g/dL Protein, Total 6.7 LAB ALB 3.9-4.9 g/dL Low Albumin 3.3 LAB CA 8.5-10.2 mg/dL Calcium, Total 9.1 LAB TBIL 0.2-1.3 mg/dL Low Bilirubin, Total <0.2 LAB ALKP 34-123 U/L Alkaline Phosphatase 85 LAB AST 13-35 U/L AST High 62 LAB GLU 74-99 mg/dL Glucose High 253 Result Comment: The [place] Diabetes Association (ADA) provides guidance for cutoff [...] Standards of Medical Care in Diabetes 2016, [place] [employer]. Diabetes Care. 2016.39(Suppl 1). LAB [...] GFR. Performed By: #### CMP, CBCDIF #### [facility] [address] [place], [place] [address] CBC AND DIFFERENTIAL Collected: 08/31/2018 Status: F Source: MCADOO 5:57 AM [facility] REPOSITORY TYPE CODE TESTS RESULT [...] k/uL Abs Lymph 1.89 LAB AMONO % [place]% 7.4 LAB AAMONO <0.87 k/uL Abs [place] 0.81 LAB AEOS % Eosin% 2.1 LAB AAEOS <0.46 k/uL Abs Eosin 0.23 LAB ABASO % Baso% 0.6 LAB AABASO <0.11 k/uL Abs Baso 0.06 LAB AUNRBC 0 /100 WBC NRBCs 0.0 LAB ABNRBC <0.01 k/uL Absolute nRBC <0.01 LAB DTYP DTYPE Auto Diff Performed By: #### CMP, CBCDIF #### [facility] [address] [place], [place] [address] HISTORY PHYSICAL Observed: 08/30/2018 Status: COMPLETED Source: MCADOO 4:27 PM [facility] REPOSITORY HNO ID: [id number] Author: Dinorah Bermudez Service: Hospital Medicine Author Type: Nurse Practitioner Type: HANDP Filed: 08/30/2018 5:25 PM Note Text: Attestation signed by Ethan Sanchez at 08/31/2018 4:43 PM [facility] STAFF PHYSICIAN NOTE OF PERSONAL INVOLVEMENT IN [...] 5th ray amputation medical non-compliance transfered from [facility] for further management of bilaeral diabetic foot ulcers. seen her pods doc for her new b/l ulcers of ~ 2 weeks(08/18) and was debrided and on f/u admitted to [facility] on 08/22 after the culture from 08/18 [...] plantar abscess and pt was transfered to [facility] for further rx -podiatry was called -id input requested -will follow closely Ethan Sanchez MD 4:42 PM DEPARTMENT OF [facility] MEDICINE HISTORY AND PHYSICAL EXAM SERVICE DATE: 08/30/2018 SERVICE TIME: 14:30 Primary Care Physician: Alessandro Eric MD NIGHT AND WEEKEND COVERAGE: Days: [phone], please page me for patient issues. Nights: [phone], please page Team GI 2 - 8th floor: [phone] Subjective CHIEF COMPLAINT: B/l foot ulcers HPI: Diony Carrillo is a 53 year-old female with PMH significant for uncontrolled DM2 (HgbA1c 12.2%), diabetic neuropathy, s/p R fifth ray amputation, Charcot deformities b/l, medical non-compliance, hyperlipidemia, restless leg syndrome, who presented as a transfer from [facility] for further management of b/l diabetic foot ulcers. History obtained from patient, outside records, Epic review. The patient is followed in [place], [place] by Podiatry, Dr. Allen, for b/l [...] concern for abscess, referred for admission to [facility]. Cultures from 08/18 grew GPC, GBS. On [...] she was to be followed by her Rice Drier Operator. Repeat XR L foot with no sign of infection. XR R foot with new metatarsal lucency. 08/29/2018 MRI right foot with right foot plantar abscess, Dr. Allen recommended transfer to [facility]. The patient was HDS and afebrile on admission to [facility]. PAST MEDICAL HISTORY Diagnosis Date - [...] REPAIR ROTATOR CUFF,ACUTE 1996 Rotator cuf repair , Dr Alvarado - [facility] MEDIAN N/CARPAL TUNNEL SURG 1996 Carpal tunnel decomp, Dr Christiano amezcua - PEDRO PABLO MEDIAN N/CARPAL TUNNEL SURG 2009 Carpal tunnel decomp, LEFT FAMILY HISTORY Problem [...] Dx: E11.40 Disp: 100 Strip Rfl: 11 08/30/2018 at Unknown time Lancets (ACCU-CHEK MULTICLIX [...] AND Plan Presented as a transfer from [facility] for further management of b/l diabetic foot ulcers. Followed in [place], [place] by Podiatry, Dr. Allen 08/18 pt [...] concern for abscess, referred for admission to [facility]. Cultures from 08/18 grew GPC, GBS. On [...] she was to be followed by her Rice Drier Operator. Repeat XR L foot with no sign of infection. XR R foot with new metatarsal lucency. 08/29/2018 MRI right foot with right foot plantar abscess Dr. Allen recommended transfer to [facility] Pt HDS and afebrile on arrival [...] VTE Prophylaxis/Anticoagulants 08/30/18 1345 pneumatic compression stockings (sd,oh) VTE Prophylaxis: VTE prophylaxis appropriate Disposition: TBD Plan of care discussed with: Attending, Patient, Case Management, RN and Consultants: Podiatry SIGNATURE: Dinorah Bermudez APRN.CNP PATIENT NAME: Diony Carrillo DATE: August 30, 2018 TIME: 4:27 PM PAGER/CONTACT #: [phone] etx [phone] CONSULT Observed: 08/30/2018 Status: COMPLETED Source: MCADOO 4:04 PM [facility] REPOSITORY HNO ID: [id number] Author: Sarah Simons Service: Podiatry Author Type: Physician Type: Consults Filed: 08/31/2018 10:15 AM Note Text: PODIATRIC MEDICINE AND SURGERY CONSULT HISTORY AND PHYSICAL PODIATRY STAFF ONCOLOGY ACCOUNT SPECIALIST: Sarah Simons DPM Please first [place] Podiatry [place] [phone]/ with questions/concerns. Consulting Service: Medicine Requesting Provider: [...] concern for abscess, referred for admission to [facility]. On admission 08/22 she was placed on [...] vac for her left foot while at [facility]. Patient was discharged to SNF 08/25, xrays [...] at the foot bilaterally Protective sensation via Bruce-Efrain monofilament testing is not-intact bilaterally MUSCULOSKELETAL: Structural [...] with VKA drugs, such as warfarin, the [place] [employer]icians 2012 Guideline recommends [...] Chest 2012, 141:7S-47S Luda RA, et al. [facility] 2017, 70: 252-289 APTT Date Value Ref [...] laboratory APTT reagent in use throughout the [facility]. Hemoglobin A1C (%) Date Value 08/02/2018 12.2 03/03/2017 12.4 11/26/2016 11.2 01/01/2016 11.2 09/29/2015 13.1 MICROBIOLOGY: 08/23 IANDD cultures with MSSA, GBS, bone bx preliminary was negative. IMAGING: XRAY and MRI from OSH 08/29/2018 MRI right foot with right foot plantar abscess VASCULAR STUDIES: n/a Tray Hammond DPM, PGY-1 Please first [place]iat[place] [phone] with questions/concerns. August 30, 2018 4:05 PM [facility] STAFF PHYSICIAN NOTE OF PERSONAL INVOLVEMENT IN [...] the consult. SIGNATURE: Sarah Simons DPM PAGER: [phone] DATE of SERVICE: August 31, 2018 TIME of SERVICE: 10:10 AM CONSULT Observed: 08/30/2018 Status: COMPLETED Source: MCADOO 3:32 PM [facility] REPOSITORY O ID: [id number] Author: Courtney Mcclellan Service: Infectious Disease Author [...] new metatarsal lucency. She was transferred to [facility] for care. 08/30 bedside IANDD unsuccessful, looking [...] (mg/dL) Date Value 08/02/2018 Test reordered by [facility]. 08/02/2018 0.85 11/26/2016 0.79 01/01/2016 0.70 06/23/2015 0.91 Lab Results Component Value Date NEUTP 80.1 08/02/2018 ABSNEUT 8.29 08/02/2018 LYMPHP 13.0 08/02/2018 ABSLYMPH 1.34 08/02/2018 ABSMONO 0.55 08/02/2018 EODINP 0.9 08/02/2018 ABSEOSIN 0.09 08/02/2018 BASOP 0.7 08/02/2018 ABSBASO 0.07 08/02/2018 Lab Results Component Value Date PLT 324 08/02/2018 HB 13.0 08/02/2018 HCT 40.6 08/02/2018 ALB Test reordered by [facility]. 08/02/2018 CA Test reordered by [facility]. 08/02/2018 TBILI Test reordered by [facility]. 08/02/2018 ALKPHOS Test reordered by [facility]. 08/02/2018 AST Test reordered by [facility]. 08/02/2018 GLUC Test reordered by [facility]. 08/02/2018 BUN Test reordered by [facility]. 08/02/2018 NA Test reordered by [facility]. 08/02/2018 K Test reordered by [facility]. 08/02/2018 CHLOR Test reordered by [facility]. 08/02/2018 CO2 Test reordered by [facility]. 08/02/2018 ANION Test reordered by [facility]. 08/02/2018 ALT Test reordered by [facility]. 08/02/2018 WSR (mm/hr) Date Value 04/19/2016 24 CRP (mg/dL) Date Value 04/19/2016 0.5 Vancomycin Pre (no units) Date Value 08/13/2014 6.2 08/07/2014 15.9 07/22/2014 9.3 07/15/2014 39.3 07/08/2014 18.2 Vancomycin, result (ug/mL) Date Value 06/05/2015 25.9 05/31/2015 22.6 05/29/2015 13.5 MICROBIOLOGY: WOUND CULTURE AND GRAM STAIN [[id number]] Microbiology Report ? Staphylococcus Aureus (VMIC) Clindamycin [...] 30, 2018 TIME: 3:33 PM PAGER/CONTACT #: [phone] ID STAFF: I saw and evaluated the patient. I reviewed the History, Exam, and Assessment as documented by Dr. Reynaga. The following reflects my findings: agree fully with findings. Agree with holding abx until OR cxs can be obtained, then we can construct antibiotic plan. Courtney Mcclellan MD pager [phone] Observed: 08/30/2018 Status: F Source: MCADOO BLOOD CULTURE 3:03 PM [facility] REPOSITORY Culture Result - No growth 5 days Performed By: #### BLCUL #### [facility] [address] [place], [place] [address] HEMOGLOBIN A1C Collected: 08/30/2018 Status: F Source: MCADOO 2:50 PM [facility] REPOSITORY TYPE CODE TESTS RESULT OUT OF REFERENCE UNITS RANGE LAB HGBA1C 4.3-5.6 % High Hemoglobin A1c 11.7 Result Comment: [place] [employer] guidelines indicate that patients with HgbA1c in the range 5.7-6.4% are at increased risk for development of diabetes, and intervention by lifestyle modification may be beneficial. HgbA1c greater or equal to 6.5% is considered diagnostic of diabetes. LAB HBA0 mg/dL Est. Average Glucose 289 Result Comment: eAG: (Estimated average glucose) is a calculated value from HgbA1c and is vendor representatives of the average blood glucose level in the last 2-3 month period. Performed By: #### HBA1C #### [facility] [employer] [address] [place], [place] [address] PROTIME Collected: 08/30/2018 Status: F Source: MCADOO 2:49 PM [facility] REPOSITORY TYPE CODE TESTS RESULT OUT OF RANGE REFERENCE UNITS LAB PSEC 9.7-13.0 sec PT Sec 10.3 LAB INR 0.9-1.3 PT INR 1.0 Result Comment: Vitamin K Antagonist (VKA) Therapeutic Range: INR 2 to 3 (Target INR of 2.5) Note: For patients treated with VKA drugs, such as warfarin, the [place] [employer]icians 2012 Guideline recommends [...] Chest 2012, 141:7S-47S Luda RA, et al. JAC 2017, 70: 252-289 Performed By: #### PT, PTT #### [facility] [employer] [address], [place] [id number] APTT Collected: 08/30/2018 Status: F Source: MCADOO 2:49 PM [facility] REPOSITORY TYPE CODE TESTS RESULT OUT OF [...] laboratory APTT reagent in use throughout the [facility]. Performed By: #### PT, PTT #### [place] [address] TYPE AND SCREEN Collected: 08/30/2018 Status: F Source: MCADOO 2:49 PM [facility] REPOSITORY TYPE CODE TESTS RESULT OUT OF REFERENCE UNITS RANGE LAB %ABR O ABO/RH(D) POSITIVE LAB % Antibody NEG Screen Performed By: #### TSCR #### [place] [address] C-REACTIVE PROTEIN Collected: 08/30/2018 Status: F Source: MCADOO 2:48 PM [facility] REPOSITORY TYPE CODE TESTS RESULT OUT OF REFERENCE UNITS RANGE LAB CRP <0.9 mg/dL C-Reactive 0.4 Protein Performed By: #### CRP, WSR #### [place] [address] SED RATE WESTERGREN Collected: 08/30/2018 Status: F Source: MCADOO 2:48 PM [facility] REPOSITORY TYPE CODE TESTS RESULT OUT OF REFERENCE UNITS RANGE LAB WSR 0-20 mm/hr Sed Rate High Westergren 87 Performed By: #### CRP, WSR #### [place] [address] CBC AND DIFFERENTIAL Collected: 08/30/2018 Status: F Source: MCADOO 2:47 PM [facility] REPOSITORY TYPE CODE TESTS RESULT OUT OF [...] k/uL Abs Lymph 1.51 LAB AMONO % [place]% 7.0 LAB AAMONO <0.87 k/uL Abs [place] 0.59 LAB AEOS % Eosin% 2.2 LAB AAEOS <0.46 k/uL Abs Eosin 0.19 LAB ABASO % Baso% 0.5 LAB AABASO <0.11 k/uL Abs Baso 0.04 LAB AUNRBC 0 /100 WBC NRBCs 0.0 LAB ABNRBC <0.01 k/uL Absolute nRBC <0.01 LAB DTYP DTYPE Auto Diff Performed By: #### CBCDIF, CMP #### [facility] [address] [place], [place] [address] COMP METABOLIC PANEL Collected: 08/30/2018 Status: F Source: MCADOO 2:47 PM [facility] REPOSITORY TYPE CODE TESTS RESULT OUT OF REFERENCE UNITS RANGE LAB TP 6.3-8.0 g/dL Protein, Total 7.2 LAB ALB 3.9-4.9 g/dL Albumin 3.9 LAB CA 8.5-10.2 mg/dL Calcium, Total 9.6 LAB TBIL 0.2-1.3 mg/dL Bilirubin, Total 0.2 LAB ALKP 34-123 U/L Alkaline Phosphatase 90 LAB AST 13-35 U/L AST High 83 LAB GLU 74-99 mg/dL Glucose High 219 Result Comment: The [place] Diabetes Association (ADA) provides guidance for cutoff [...] Standards of Medical Care in Diabetes 2016, [place] [employer]. Diabetes Care. 2016.39(Suppl 1). LAB [...] GFR. Performed By: #### CBCDIF, CMP #### [facility] [employer] [address] [place], [place] [address] Observed: 08/30/2018 Status: F Source: MCADOO BLOOD CULTURE 2:45 PM [facility] REPOSITORY Culture Result - No growth 5 days Performed By: #### BLCUL #### [facility] [employer] [address] [place], [place] [address] NURSING PROG Observed: 08/30/2018 Status: COMPLETED Source: MCADOO 2:08 PM [facility] REPOSITORY HNO ID: [id number] Author: Honey (Rn) ABIGAIL Torres Service: (none) Author Type: Registered Nurse Type: Nursing Progress Note Filed: 08/30/2018 2:08 PM Note Text: Nursing Progress Note Patient Name: Diony Carrillo Patient Location: [place] [id number] pt admit to floor in stable condition, md has been paged This note was completed by: Honey Torres RN BEDSIDE GLUCOSE Collected: 08/30/2018 Status: F Source: PERNELL 10:58 AM [facility] [place] [place] REPOSITORY TYPE CODE TESTS RESULT OUT OF REFERENCE UNITS RANGE LAB L501.080 70-110 mg/dL High BEDSIDE GLU 314 Result Comment: MANAGEMENT OF PATIENT CARE PER NURSING PROTOCOL Performed By: #### L501.080 #### [facility] Point of Care [address] [place] [address] BEDSIDE GLUCOSE Collected: 08/30/2018 Status: F Source: PERNELL 6:42 AM [facility] [place] [place] REPOSITORY TYPE CODE TESTS RESULT OUT OF REFERENCE UNITS RANGE LAB L501.080 70-110 mg/dL High BEDSIDE GLU 207 Result Comment: MANAGEMENT OF PATIENT CARE PER NURSING PROTOCOL Performed By: #### L501.080 #### [facility] Point [facility] Care [address] [place] [address] BEDSIDE GLUCOSE Collected: 08/29/2018 Status: F Source: PERNELL 9:16 PM [facility] [place] [place] REPOSITORY TYPE CODE TESTS RESULT OUT OF REFERENCE UNITS RANGE LAB L501.080 70-110 mg/dL High BEDSIDE GLU 214 Result Comment: MANAGEMENT OF PATIENT CARE PER NURSING PROTOCOL Performed By: #### L501.080 #### [facility] Point of Care [address] [place] [address] DISCHARGE SUMMARY Observed: 08/29/2018 Status: F Source: PER[place]LL 9:06 PM [facility] [place] [place] REPOSITORY [facility] Medical Records Department [address] [place] [address] Discharge Summary 08/29/182103 MR#: [id number] Acct: [id number] Name: DIONY CARRILLO Rep #: [id number] : 1965 53 From: Chauncey Hassan MD PCP: Jeaneth DELVALLE,Alessandro Status: ADM IN Location: [place] [address] Discharge Date and Diagnosis Date of Admission: [...] 301 H 165 H Consultations 08/25/18 Consult: Onc/Wound/apartment maintenance manager Routine Comment: Operations: None, - - Incision [...] plantar abscess, Dr. Allen recommended transfer to [facility], as he will be out of town. Discharge to [facility] for further care. - Physical Exam [...] in: 1 week. Please Follow Up With: [facility] When: 2 weeks. Disposition: Acute care Hospital [...] 08/29/2018 Status: F Source: PER[place] 9:04 PM [facility] [place] [place] REPOSITORY [facility] Medical Records Department [address] [place] [address] Instructions for Home/Discharge Instructions 08/29/182100 MR#: [id number] Acct: [id number] Name: DIONY CARRILLO Rep #: [id number] : 1965 53 From: Chauncey Hassan MD [...] appointment, if applicable. Please Follow Up With: [facility] When: 2 weeks. Proposed Discharge Date: 08/29/18 08/29/182103 <Electronically signed by Chauncey Hassan MD> Date Chauncey Hassan MD CC: Alessandro Eric MD BEDSIDE GLUCOSE Collected: 08/29/2018 Status: F Source: PER[place] 4:57 PM [facility] [place] [place] REPOSITORY TYPE CODE TESTS RESULT OUT OF REFERENCE UNITS RANGE LAB L501.080 70-110 mg/dL High BEDSIDE GLU 165 Result Comment: MANAGEMENT OF PATIENT CARE PER NURSING PROTOCOL Performed By: #### L501.080 #### [facility] Point of Care [address] [place] [address] BEDSIDE GLUCOSE Collected: 08/29/2018 Status: F Source: PER[place] 11:09 AM [facility] [place] [place] REPOSITORY TYPE CODE TESTS RESULT OUT OF REFERENCE UNITS RANGE LAB L501.080 70-110 mg/dL High BEDSIDE GLU 301 Result Comment: MANAGEMENT OF PATIENT CARE PER NURSING PROTOCOL Performed By: #### L501.080 #### [facility] Point of Care [address] [place] [address] LOWER EXT NO JOINT Observed: 08/29/2018 Status: F Source: HULL W/WO CONT 8:36 AM [facility] [place] [place] REPOSITORY [facility] Imaging Services [address] [place] [address] Lower Ext No Joint W/WO Cont MR#: [id number] Acct: [id number] Name: DIONY CARRILLO Rep #: [id number] : 1965 F 53 From: Saqib Roberts MD PCP: Alessandro Eric MD Status: REG CLI Study: Lower Ext No Joint W/WO Cont Date of Exam: 08/29/18 Exam# [id number] Ordering Dr: Sendy Allen DPM STUDY: MRI [...] , CC: BRITTANIE Allen; Alessandro Eric MD Car Designer: Signed BEDSIDE GLUCOSE Collected: 08/29/2018 Status: F Source: [place] 6:39 AM [facility] [place] [place] REPOSITORY TYPE CODE TESTS RESULT OUT OF RANGE REFERENCE UNITS LAB L501.080 70-110 mg/dL Normal BEDSIDE GLU 107 Result Comment: MANAGEMENT OF PATIENT CARE PER NURSING PROTOCOL Performed By: #### L501.080 #### [facility] Point of Care [address] [place] [address] MR OUTSIDE CD DICOM Observed: 08/29/2018 Status: F Source: OTOOLE IMPORT -NBNR 12:00 AM [facility] REPOSITORY Images were obtained outside of [facility] [id number] MR OUTSIDE CD DICOM Observed: 08/29/2018 Status: F Source: OTOOLE IMPORT -NBNR 12:00 AM [facility] REPOSITORY Images were obtained outside of [facility] [id number] MR OUTSIDE CD DICOM Observed: 08/29/2018 Status: F Source: OTOOLE IMPORT -NBNR 12:00 AM [facility] REPOSITORY * * *Final Report* * * [...] NEUROPATHIC CHANGES OF THE TARSOMETATARSAL JOINTS. IMPRESSION: Car Designer: WILLIAM Transcribe Date/Time: Sep 04 2018 8:40A Dictated by : FELICE MI MD This examination was interpreted and the report reviewed and electronically signed by: FELICE MI MD on Sep 04 2018 9:03AM EST BEDSIDE GLUCOSE Collected: 08/28/2018 Status: F Source: PER[place] 9:13 PM [facility] [place] [place] REPOSITORY TYPE CODE TESTS RESULT OUT OF REFERENCE UNITS RANGE LAB L501.080 70-110 mg/dL High BEDSIDE GLU 262 Result Comment: MANAGEMENT OF PATIENT CARE PER NURSING PROTOCOL Performed By: #### L501.080 #### [facility] Point of Care [address] [place] [address] BEDSIDE GLUCOSE Collected: 08/28/2018 Status: F Source: [place] 4:45 PM [facility] [place] [place] REPOSITORY TYPE CODE TESTS RESULT OUT OF REFERENCE UNITS RANGE LAB L501.080 70-110 mg/dL High BEDSIDE GLU 241 Result Comment: Dr Ponce Followed MANAGEMENT OF PATIENT CARE PER NURSING PROTOCOL Performed By: #### L501.080 #### [facility] Point [facility] Care [address] [place] [address] PROGRESS Observed: 08/28/2018 Status: COMPLETED Source: MCADOO 1:01 PM [facility] REPOSITORY HNO ID: [id number] Author: Justin Grant) Lalo Service: (none) Author Type: Nurse Practitioner Type: Progress Notes Filed: 08/28/2018 1:01 PM Note Text: Noted. Justin Philippe APRN.CNP PROGRESS Observed: 08/28/2018 Status: COMPLETED Source: MCADOO 12:34 PM [facility] REPOSITORY HNO ID: [id number] Author: Kaylyn Harrison Ma Service: (none) Author Type: (none) Type: Progress Notes Filed: 08/28/2018 1:01 PM Note Text: TRANSITION CARE MANAGEMENT (TCM) INITIAL CONTACT Bliss Press Operator Outreach Provider Action/FYI: - Pt currently in [facility] TCU and on a Wound-Vac. Has Wound Nurse changing dressings up to TID per week. Dr. Allen coming in once per week to check on patient. Pt is partial weightbearing to right heel, silvercel and peg assisted offloading boot. Pt unsure if will be able to get transportation, but should from [facility]. - Pt states that she may be in the TCU anywhere from 30-90 days. She is needing to f/u due to DM being uncontrolled and needing DM shoes and medications. A1c while at [facility] was 12% and insulin therapy was adjusted [...] (Nurse). Dr. Tello is ID consult at [facility]. - Pt has had cultures, multiple imaging and labs done while at [facility]. She follows with Dr. Allen at [facility] for Podiatry. Initial contact with patient post discharge, spoke to patient on August 28, 2018 and Nurse Alli at TCU. Patient identified by name and . TRANSITION CARE MANAGEMENT INITIAL OUTREACH DOCUMENTATION: No flowsheet data found. SUMMARY: -Pt discharged from [facility] on 08/25/18. -Admitted for: Cellulitis on 08/22/18 [...] Were you told to hold any medications? [place] has been replaced with Oxycodone per Nurse Alli at [facility]. Were any of your medications discontinued? If [...] home? Yes [facility] BEDSIDE GLUCOSE Collected: 08/28/2018 Status: F Source: HULL 10:58 AM [facility] [place], [place] REPOSITORY TYPE CODE TESTS RESULT OUT OF REFERENCE UNITS RANGE LAB L501.080 70-110 mg/dL High BEDSIDE GLU 140 Result Comment: MANAGEMENT OF PATIENT CARE PER NURSING PROTOCOL Performed By: #### L501.080 #### [facility] Point of Care [address] [place] [address] BEDSIDE GLUCOSE Collected: 08/28/2018 Status: F Source: PERNELL 6:23 AM [facility] [place] [place] REPOSITORY TYPE CODE TESTS RESULT OUT OF REFERENCE UNITS RANGE LAB L501.080 70-110 mg/dL High BEDSIDE GLU 188 Result Comment: MANAGEMENT OF PATIENT CARE PER NURSING PROTOCOL Performed By: #### L501.080 #### [facility] [address] [place] [address] [facility] Observed: 08/28/2018 Status: COMPLETED Source: MCADOO 12:00 AM [facility] REPOSITORY Patient Outreach (FAMPWS) MENGDIONY DONIS Niru ([id number]) 1965 F Date Time Provider Department 08/28/18 [facility] During your visit today, we recorded the following information about you: Kaylyn Zelayatrent Gordon 08/28/2018 1:01 PM Signed TRANSITION CARE MANAGEMENT (TCM) INITIAL CONTACT Bliss Press Operator Outreach Provider Action/FYI: - Pt currently in [facility] TCU and on a Wound-Vac. Has Wound Nurse changing dressings up to TID per week. Dr. Allen coming in once per week to check on patient. Pt is partial weightbearing to right heel, silvercel and peg assisted offloading boot. Pt unsure if will be able to get transportation, but should from [facility]. - Pt states that she may be in the TCU anywhere from 30-90 days. She is needing to f/u due to DM being uncontrolled and needing DM shoes and medications. A1c while at [facility] was 12% and insulin therapy was adjusted [...] (Nurse). Dr. Tello is ID consult at [facility]. - Pt has had cultures, multiple imaging and labs done while at [facility]. She follows with Dr. Allen at [facility] for Podiatry. Initial contact with patient post discharge, spoke to patient on August 28, 2018 and Nurse Alli at [facility]. Patient identified by name and . TRANSITION CARE MANAGEMENT INITIAL OUTREACH DOCUMENTATION: No flowsheet data found. SUMMARY: -Pt discharged from [facility] on 08/25/18. -Admitted for: Cellulitis on 08/22/18 [...] Were you told to hold any medications? [place] has been replaced with Oxycodone per Nurse Alli at [facility]. Were any of your medications discontinued? If [...] home? Yes Medical records from recent hospitalization: [facility] Justin Philippe APRN.CNP 08/28/2018 1:01 PM Signed Noted. Justin Philippe APRN.CNP Allergies As of Date: 08/28/2018 Noted Allergy Reaction OXYCONTIN (OXYCODONE HCL) 09/27/2007 Comments: itch PENICILLINS 06/02/2007 4 - Hives REQUIP (ROPINIROLE) 11/18/2015 5 - Intolerance Comments: Vomiting, panic attacks, itching Date Reviewed: 08/22/2018 Reviewed by: Cecy Whitmyer RN - Fully Assessed Reason for Visit: [...] 08/27/2018 Status: F Source: PERNELL 9:06 PM [facility] [place], [place] REPOSITORY TYPE CODE TESTS RESULT OUT OF RANGE REFERENCE UNITS LAB L501.080 70-110 mg/dL Normal BEDSIDE GLU 106 Result Comment: MANAGEMENT OF PATIENT CARE PER NURSING PROTOCOL Performed By: #### L501.080 #### [facility] Point of Care [address] [place], [place] [address] BEDSIDE GLUCOSE Collected: 08/27/2018 Status: F Source: PERNELL 6:58 PM [facility] [place] [place] REPOSITORY TYPE CODE TESTS RESULT OUT OF REFERENCE UNITS RANGE LAB L501.080 70-110 mg/dL High BEDSIDE GLU 205 Result Comment: MANAGEMENT OF PATIENT CARE PER NURSING PROTOCOL Performed By: #### L501.080 #### [facility] Point of Care [address] [place] [address] BEDSIDE GLUCOSE Collected: 08/27/2018 Status: F Source: PERNELL 4:48 PM [facility] [place] [place] REPOSITORY TYPE CODE TESTS RESULT OUT OF REFERENCE UNITS RANGE LAB L501.080 70-110 mg/dL High BEDSIDE GLU 244 Result Comment: Dr Kris Followed MANAGEMENT OF PATIENT CARE PER NURSING PROTOCOL Performed By: #### L501.080 #### [facility] Point of Care [address] [place] [address] BEDSIDE GLUCOSE Collected: 08/27/2018 Status: F Source: PERNELL 1:25 PM [facility] [place] [place] REPOSITORY TYPE CODE TESTS RESULT OUT OF REFERENCE UNITS RANGE LAB L501.080 70-110 mg/dL High BEDSIDE GLU 176 Result Comment: MANAGEMENT OF PATIENT CARE PER NURSING PROTOCOL Performed By: #### L501.080 #### [facility] Point of Care [address] [place] [address] BEDSIDE GLUCOSE Collected: 08/27/2018 Status: F Source: PERNELL 12:29 PM [facility] [place] [place] REPOSITORY TYPE CODE TESTS RESULT OUT OF REFERENCE UNITS RANGE LAB L501.080 70-110 mg/dL Low BEDSIDE GLU 67 Result Comment: Snack Given MANAGEMENT OF PATIENT CARE PER NURSING PROTOCOL Performed By: #### L501.080 #### [facility] Point of Care [address] [place] [address] BEDSIDE GLUCOSE Collected: 08/27/2018 Status: F Source: PERNELL 11:26 AM [facility] [place] [place] REPOSITORY TYPE CODE TESTS RESULT OUT OF RANGE REFERENCE UNITS LAB L501.080 70-110 mg/dL Normal BEDSIDE GLU 96 Result Comment: MANAGEMENT OF PATIENT CARE PER NURSING PROTOCOL Performed By: #### L501.080 #### [facility] Point of Care [address] [place] [address] ABDOMEN SINGLE VIEW Observed: 08/27/2018 Status: F Source: PERNELL 9:12 AM [facility] [place] [place] REPOSITORY [facility] Imaging Services [address] [place] [address] Abdomen Single View MR#: [id number] Acct: [id number] Name: DIONY CARRILLO Rep #: [id number] : 1965 F 53 From: Milli Haq MD PCP: Alessnadro Eric MD Status: ADM IN Study: Abdomen Single View Date of Exam: 08/27/18 Exam# [id number] Ordering Dr: Chauncey Hassan MD STUDY: X-RAY [...] The symphysis pubis is out of the aggth-cp-navv on this study. There are calcified phleboliths in the pelvis. There are diffuse degenerative changes of the visualized lumbar spine. RAD/Abdomen Single View IMPRESSION: Limited study.. Moderate constipation. Electronically Signed: Milli Haq MD at 10:00 EST Tel , Service support , CC: Alessandro Eric MD; Chauncey Hsasan MD Car Designer: Signed BEDSIDE GLUCOSE Collected: 08/27/2018 Status: F Source: PERNELL 8:56 AM [facility] [place] [place] REPOSITORY TYPE CODE TESTS RESULT OUT OF REFERENCE UNITS RANGE LAB L501.080 70-110 mg/dL High BEDSIDE GLU 161 Result Comment: MANAGEMENT OF PATIENT CARE PER NURSING PROTOCOL Performed By: #### L501.080 #### [facility] Point of Care [address] [place] [address] BEDSIDE GLUCOSE Collected: 08/27/2018 Status: F Source: PERNELL 6:25 AM [facility] [place] [place] REPOSITORY TYPE CODE TESTS RESULT OUT OF REFERENCE UNITS RANGE LAB L501.080 70-110 mg/dL High BEDSIDE GLU 132 Result Comment: MANAGEMENT OF PATIENT CARE PER NURSING PROTOCOL Performed By: #### L501.080 #### [facility] Point of Care [address] [place] [address] BEDSIDE GLUCOSE Collected: 08/26/2018 Status: F Source: PERNELL 9:17 PM [facility] [place] [place] REPOSITORY TYPE CODE TESTS RESULT OUT OF REFERENCE UNITS RANGE LAB L501.080 70-110 mg/dL High BEDSIDE GLU 112 Result Comment: Dr Orders Followed MANAGEMENT OF PATIENT CARE PER NURSING PROTOCOL Performed By: #### L501.080 #### [facility] Point of Care [address] [place] [address] BEDSIDE GLUCOSE Collected: 08/26/2018 Status: F Source: PERNELL 8:49 PM [facility] [place] [place] REPOSITORY TYPE CODE TESTS RESULT OUT OF REFERENCE UNITS RANGE LAB L501.080 70-110 mg/dL Low BEDSIDE GLU 69 Result Comment: Dr Orders Followed MANAGEMENT OF PATIENT CARE PER NURSING PROTOCOL Performed By: #### L501.080 #### [facility] Point of Care [address] [place] [address] BEDSIDE GLUCOSE Collected: 08/26/2018 Status: F Source: PERNELL 7:18 PM [facility] [place] [place] REPOSITORY TYPE CODE TESTS RESULT OUT OF REFERENCE UNITS RANGE LAB L501.080 70-110 mg/dL High BEDSIDE GLU 138 Result Comment: MANAGEMENT OF PATIENT CARE PER NURSING PROTOCOL Performed By: #### L501.080 #### [facility] Point of Care [address] [place] [address] BEDSIDE GLUCOSE Collected: 08/26/2018 Status: F Source: PERNELL 4:56 PM [facility] [place] [place] REPOSITORY TYPE CODE TESTS RESULT OUT OF REFERENCE UNITS RANGE LAB L501.080 70-110 mg/dL High BEDSIDE GLU 240 Result Comment: Dr Orders Followed MANAGEMENT OF PATIENT CARE PER NURSING PROTOCOL Performed By: #### L501.080 #### [facility] Point of Care [address] [place] [address] BEDSIDE GLUCOSE Collected: 08/26/2018 Status: F Source: PERNELL 11:10 AM [facility] [place] [place] REPOSITORY TYPE CODE TESTS RESULT OUT OF REFERENCE UNITS RANGE LAB L501.080 70-110 mg/dL High BEDSIDE GLU 338 Result Comment: MANAGEMENT OF PATIENT CARE PER NURSING PROTOCOL Performed By: #### L501.080 #### [facility] Point of Care [address] [place] [address] FOOT MIN 3 VIEWS Observed: 08/26/2018 Status: F Source: PERNELL 8:12 AM [facility] [place] [place] REPOSITORY [facility] Imaging Services [address] [place] [address] Foot min 3 Views MR#: [id number] Acct: [id number] Name: DIONY CARRILLO Rep #: [id number] : 1965 F 53 From: Kyle Warren DO PCP: Alessandro Eric MD Status: ADM IN Study: Foot min 3 Views Date of Exam: 08/26/18 Exam# [id number] Ordering Dr: Sendy Allen DPM STUDY: X-RAY [...] degenerative changes as above. Electronically Signed: Kyle DO Kelvin at 8:55 EST , Service support , CC: BRITTANIE Allen; Alessandro Eric MD Car Designer: Signed FOOT MIN 3 VIEWS Observed: 08/26/2018 Status: F Source: PERNELL 8:12 AM [facility] [place] [place] REPOSITORY [facility] Imaging Services [address] [place] [address] Foot min 3 Views MR#: [id number] Acct: [id number] Name: DIONY CARRILLO Rep #: [id number] : 1965 F 53 From: Juanjo Antunez MD PCP: Alessandro Eric MD Status: ADM IN Study: Foot min 3 Views Date of Exam: 08/26/18 Exam# [id number] Ordering Dr: Sendy Allen DPM STUDY: X-RAY [...] , CC: BRITTANIE Allen; Alessandro Eric MD Car Designer: Signed ANKLE MIN 3 VIEWS Observed: 08/26/2018 Status: F Source: PERNELL 8:11 AM [facility] REPOSITORY [facility] Imaging Services [address] [place] [address] Ankle min 3 Views MR#: [id number] Acct: [id number] Name: DIONY CARRILLO Rep #: [id number] : 1965 F 53 From: Kyle Warren DO PCP: Alessandro Eric MD Status: ADM IN Study: Ankle min 3 Views Date of Exam: 08/26/18 Exam# [id number] Ordering Dr: Sedny Allen DPM STUDY: X-RAY - RIGHT ANKLE [...] , CC: BRITTANIE Allen; Alessandro Eric MD Car Designer: Signed TRANSFER TO [facility] Observed: 08/26/2018 Status: F Source: HULL CARE 7:46 AM [facility] REPOSITORY [facility] Medical Records Department [address] [place] [address] Transfer to [facility] Care MR#: [id number] Acct: [id number] Name: DIONY CARRILLO Rep #: [id number] : 1965 53 From: Donovan GRANADO PCP: Alessandro Eric MD Status: DIS IN DIONY CARRILLO (Patient) (Health Ins. Claim No.) (Day of Discharge to Facility) Certification of patient admission REQUIRED AT TIME OF ADMISSION. I CERTIFY THAT POST-HOSPITAL ECF SERVICES ARE REQUIRED TO BE GIVEN ON AN IN-PATIENT BASIS BECAUSE OF THE ABOVE NAMED PATIENT'S NEED FOR LONG TERM CARE ON A CONTINUING BASIS FOR THE CONDITION(S) FOR WHICH HE/SHE WAS RECEIVING IN-PATIENT HOSPITAL SERVICES PRIOR TO HIS/HER TRANSFER TO THE F. 08/25/18 1145 <Electronically signed by Donovan GRANADO> Date oDnovan GRANADO - Diet 08/24/18 09:33 Diet: Calorie [...] 08/26/2018 Status: F Source: PERNELL 7:46 AM [facility] [place] [place] REPOSITORY [facility] Medical Records Department [address] [place] [address] [place] [address] Discharge Summary 08/25/18 1445 MR#: [id number] Acct: [id number] Name: DIONY CARRILLO Rep #: [id number] : 1965 53 From: Donovan GRANADO PCP: Elderbrock MD,Alessandro Status: DIS IN Y Location: MS3 [id number] Discharge Date and Diagnosis - Problem List [...] image guidance. Consultations Podiatry-[facility] 08/22/18 15:54 Consult: Onc/Wound/apartment maintenance manager Routine Comment: Operations: - - Incision and [...] presented to the hospital sent from the heavy media operator office for a left foot diabetic [...] her wound, chronic wounds, and related debility, [facility] was recommended. She was agreeable, and she was discharged to [facility] in stable condition. She will need to [...] Samuels PA-C under the supervision of Doctor Chris. [] Patient Problems: Active and Suspected Problems [...] Days #12 tab PRN Reason: Mod-Severe Pain (4-10/10) Metronidazole [Flagyl] 500 mg PO TID #32 tab Smz/Tmp Ds [Bactrim Ds] 1 tab PO BID #16 tab Primary Care Physician: Alessandro Eric MD [Primary Care Provider] - Please follow up with your Primary Care Physician in: 2 weeks Please Follow Up With: Sendy Allen DPM When: 1 week Disposition: Care Home facility Minutes spent on discharge:: 35 Patient Condition:: Stable Medical Necessity - Tobacco Use Smoking Status: Never smoker Meaningful Use Info Meaningful Use Diagnoses (Choose all that apply): None applicable 08/25/18 1453 <Electronically signed by Donovan Samuels PA> Date Donovan GRANADO 08/26/18 0746<Electronically signed by Alessandro Perez DO> Cosigner Signature (if applicable): Date Alessandro Perez DO CC: LOY Sameuls; Alessandro Eric MD; Alessandro Perez DO Signed CBC W/DIFF, AUTOMATED Collected: 08/26/2018 Status: F Source: PERNELL 6:32 AM [facility] [place] [place] REPOSITORY TYPE CODE TESTS RESULT OUT OF [...] Lymph 1.51 Performed By: #### L100.0100 #### [facility] [address] [place], [address] BASIC METABOLIC Collected: 08/26/2018 Status: F Source: HULL PROFILE (BMP) 6:32 AM [facility] [place] [place] REPOSITORY TYPE CODE TESTS RESULT OUT OF [...] GAP 7 Performed By: #### L500.2500 #### [facility] [address] [place], [address] BEDSIDE GLUCOSE Collected: 08/26/2018 Status: F Source: PERNELL 6:24 AM [facility] [place] [place] REPOSITORY TYPE CODE TESTS RESULT OUT OF REFERENCE UNITS RANGE LAB L501.080 70-110 mg/dL High BEDSIDE GLU 127 Result Comment: MANAGEMENT OF PATIENT CARE PER NURSING PROTOCOL Performed By: #### L501.080 #### [facility] Point of Care [address] [place] [address] BEDSIDE GLUCOSE Collected: 08/25/2018 Status: F Source: PERNELL 8:56 PM [facility] [place] [place] REPOSITORY TYPE CODE TESTS RESULT OUT OF RANGE REFERENCE UNITS LAB L501.080 70-110 mg/dL Normal BEDSIDE GLU 105 Result Comment: MANAGEMENT OF PATIENT CARE PER NURSING PROTOCOL Performed By: #### L501.080 #### [facility] Point of Care [address] [facility] [place] [address] HISTORY AND PHYSICAL Observed: 08/25/2018 Status: F Source: HULL EXAM 5:28 PM [facility] [place] [place] REPOSITORY [facility] Medical Records Department [address] [facility] [place] [address] History and Physical 08/25/18 1714 MR#: [id number] Acct: [id number] Name: DIONY CARRILLO Rep #: [id number] : 1965 53 From: Chauncey Hassan MD PCP: Jeaneth DELVALLE,Alessandro Status: ADM IN Location: [address] Problem List (1) Neuropathic pain Status: Chronic [...] 1994, section x2. 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: No pertinent CONTROL EQUIPMENT ELECTRICIAN history Lives: Alone - Spouse in [place], met online, talked for 1 year, then visited in [place]. Smoking Status: Never smoker Tobacco Use: Non-smoker [...] Leg syndrome - Mirapex 1.5MG BID. 08/25/18 0367 <Electronically signed by Chauncey Hassan MD> Date Chauncey Hassan MD Cosigner Signature: Date (if applicable) CC: Alessandro Eric MD; Chauncey Hassan MD Signed BEDSIDE GLUCOSE Collected: 08/25/2018 Status: F Source: PERNELL 4:52 PM [facility] [place] [place] REPOSITORY TYPE CODE TESTS RESULT OUT OF REFERENCE UNITS RANGE LAB L501.080 70-110 mg/dL High BEDSIDE GLU 115 Result Comment: MANAGEMENT OF PATIENT CARE PER NURSING PROTOCOL Performed By: #### L501.080 #### [facility] Point of Care [address] [place] [address] BEDSIDE GLUCOSE Collected: 08/25/2018 Status: F Source: PERNELL 11:54 AM [facility] [place] [place] REPOSITORY TYPE CODE TESTS RESULT OUT OF REFERENCE UNITS RANGE LAB L501.080 70-110 mg/dL High BEDSIDE GLU 188 Result Comment: MANAGEMENT OF PATIENT CARE PER NURSING PROTOCOL Performed By: #### L501.080 #### [facility] Point of Care [address] [place] [address] BEDSIDE GLUCOSE Collected: 08/25/2018 Status: F Source: PER[place]LL 6:21 AM [facility] [place] [place] REPOSITORY TYPE CODE TESTS RESULT OUT OF REFERENCE UNITS RANGE LAB L501.080 70-110 mg/dL High BEDSIDE GLU 127 Result Comment: MANAGEMENT OF PATIENT CARE PER NURSING PROTOCOL Performed By: #### L501.080 #### [facility] Point of Care [address] [place] [address] HH, HEMOGLOBIN AND Collected: 08/25/2018 Status: F Source: [place] HEMATOCRIT 5:42 AM [facility] [place] REPOSITORY TYPE CODE TESTS RESULT OUT OF RANGE REFERENCE UNITS LAB L100.1300 12.0-15.0 g/dl Low HGB 10.1 LAB L100.1400 37-47 % Low HCT 31.6 Performed By: #### L100.0600 #### [facility] [address] [place], [address] BEDSIDE GLUCOSE Collected: 08/24/2018 Status: F Source: PER[place]LL 10:31 PM [facility] [place] [place] REPOSITORY TYPE CODE TESTS RESULT OUT OF REFERENCE UNITS RANGE LAB L501.080 70-110 mg/dL High BEDSIDE GLU 254 Result Comment: MANAGEMENT OF PATIENT CARE PER NURSING PROTOCOL Performed By: #### L501.080 #### [facility] Point of Care [address] [place], [place] [address] BEDSIDE GLUCOSE Collected: 08/24/2018 Status: F Source: PER[place]LL 4:02 PM [facility] [place] [place] REPOSITORY TYPE CODE TESTS RESULT OUT OF REFERENCE UNITS RANGE LAB L501.080 70-110 mg/dL High BEDSIDE GLU 124 Result Comment: MANAGEMENT OF PATIENT CARE PER NURSING PROTOCOL Performed By: #### L501.080 #### [facility] Point of Care [address] [place], [place] [address] BEDSIDE GLUCOSE Collected: 08/24/2018 Status: F Source: PER[place]LL 11:05 AM [facility] [place] [place] REPOSITORY TYPE CODE TESTS RESULT OUT OF REFERENCE UNITS RANGE LAB L501.080 70-110 mg/dL High BEDSIDE GLU 147 Result Comment: MANAGEMENT OF PATIENT CARE PER NURSING PROTOCOL Performed By: #### L501.080 #### [facility] Point of Care [address] [facility] [place], [place] [address] CBC-COMPLETE BLOOD CNT Collected: 08/24/2018 Status: F Source: PER[place] NO DIFF 7:52 AM [facility] [place] [place] REPOSITORY TYPE CODE TESTS RESULT OUT OF [...] MPV 10.4 Performed By: #### L100.0500 #### [facility] [address] [place], [address] VANCOMYCIN, TROUGH Collected: 08/24/2018 Status: F Source: [place] LEVEL 7:52 AM [facility] [place] [place] REPOSITORY Order Comment: Time Medication is to [...] (Ventilator/Healtcare Associated) -Sepsis PLEASE CONTACT PHARMACY SERVICES (#[id number]) FOR INTERPRETATION OF RESULTS. Performed By: #### L501.8820 #### [facility] [address] [place], [address] BASIC METABOLIC Collected: 08/24/2018 Status: F Source: [place] PROFILE (BMP) 7:52 AM [facility] [place] [place] REPOSITORY TYPE CODE TESTS RESULT OUT OF [...] GAP 11 Performed By: #### L500.2500 #### [facility] [address] [place], [address] BEDSIDE GLUCOSE Collected: 08/24/2018 Status: F Source: HULL 6:59 AM [facility] [place] [place] REPOSITORY TYPE CODE TESTS RESULT OUT OF REFERENCE UNITS RANGE LAB L501.080 70-110 mg/dL High BEDSIDE GLU 237 Result Comment: MANAGEMENT OF PATIENT CARE PER NURSING PROTOCOL Performed By: #### L501.080 #### [facility] Point of Care [address] [place] [address] CNOP Observed: 08/24/2018 Status: COMPLETED Source: MCADOO 12:00 AM [facility] REPOSITORY Operative Note (Enc) (PODIWS) Progress Notes: Cecy Carbajal RN 08/24/2018 4:57 PM Signed OPERATIVE NOTATION FOR [facility] SURGICAL PROCEDURE. August 23 2018 Diony Carrillo 1965 [id number] female PROCEDURE: Incision and drainage, R SURGEON: Sendy Aleln DPM PSYCHOLOGICAL ASSISTANT: None DEPT: WQ PROVIDER: Sendy Allen DPM POS: [id number] DIAGNOSIS: (E11.621, L97.412) Diabetic ulcer of right midfoot associated with type 2 diabetes mellitus, with fat layer exposed (HCC) (primary encounter diagnosis) ASA CLASS: 2 - mild FINDINGS: see path in [employer]redUPtech COMPLICATIONS: None PMHx - PAST MEDICAL HISTORY Diagnosis Date - Chronic depressive personality disorder - Degenerative disc disease - Diabetes mellitus without mention of complication Diabetes mellitus - Fallen arches (Broken) on both sides - Polyneuropathy in diabetes(357.2) - Restless legs syndrome (RLS) COMORBIDITIES - DM Type 2 Post Op Occurrences - None Wound Classification - Clean Operative note dictated in the [facility] dictation system. Encounter Status:Closed by CECY CARBAJAL RN on 08/24/18 BEDSIDE GLUCOSE Collected: 08/23/2018 Status: F Source: PER[place]LL 11:01 PM [facility] [place] [place] REPOSITORY TYPE CODE TESTS RESULT OUT OF REFERENCE UNITS RANGE LAB L501.080 70-110 mg/dL High BEDSIDE GLU 368 Result Comment: MANAGEMENT OF PATIENT CARE PER NURSING PROTOCOL Performed By: #### L501.080 #### [facility] Point of Care [address] [facility]. [place], [place] [id number] HH, HEMOGLOBIN AND Collected: 08/23/2018 Status: F Source: [place] HEMATOCRIT 10:20 PM [facility] [place], [place] REPOSITORY TYPE CODE TESTS RESULT OUT OF RANGE REFERENCE UNITS LAB L100.1300 12.0-15.0 g/dl Low HGB 10.2 LAB L100.1400 37-47 % Low HCT 31.8 Performed By: #### L100.0600 #### [facility] [address] [place], [place], [address] BEDSIDE GLUCOSE Collected: 08/23/2018 Status: F Source: [place] 6:34 PM [facility] [place] [place] REPOSITORY TYPE CODE TESTS RESULT OUT OF REFERENCE UNITS RANGE LAB L501.080 70-110 mg/dL High BEDSIDE GLU 256 Result Comment: MANAGEMENT OF PATIENT CARE PER NURSING PROTOCOL Performed By: #### L501.080 #### [facility] Point of Care [address] [facility]. [place], [place] [address] Observed: 08/23/2018 Status: F Source: [place] CULTURE, DEEP WOUND 6:00 PM [facility] [place] [place] REPOSITORY Order Date: 05/11/17 Comments: 5TH METATARSAL BONE BIOPSY Gram Stain Gram Stain No White Blood Cells No organisms seen Wound Culture No growth aerobically. Cult, Anaerobic No growth in 5 days. Performed By: #### M100.1500 #### [facility] [address] [facility] [place], [address] [place]B Observed: 08/23/2018 Status: F Source: [place] CULT/SMEAR [id number] 6:00 PM [facility] [place] [place] REPOSITORY Comments: 5TH METATARSAL BONE BIOPSY AFB Smear/Fluor TESTING PERFORMED AT [facility]. ORIGINAL REPORT ON FILE IN LAB CONTAINS ADDITIONAL TEST SITE INFORMATION. Smear, Acid Fast Tissue Grinding Smear: Negative AFB Cult TESTING PERFORMED AT [facility]. ORIGINAL REPORT ON FILE IN LAB CONTAINS ADDITIONAL TEST SITE INFORMATION. Culture, Acid Fast NO ACID-FAST BACILLI ISOLATED AFTER 6 WEEKS. Performed By: #### M100.3880 #### [facility] [address] [place], [address] Observed: 08/23/2018 Status: F Source: [place] ELLIOTT W/ 6:00 PM [facility] [place] [place] [id number] REPOSITORY Comments: 5TH METATARSAL BONE BIOPSY Is this test to exclude patient from TB Isolation? Payal [id number] TESTING PERFORMED AT [facility]. ORIGINAL REPORT ON FILE IN LAB CONTAINS ADDITIONAL TEST SITE INFORMATION. CUF No yeast or mold isolated after [address] TESTING PERFORMED AT [facility]. ORIGINAL REPORT ON FILE IN LAB CONTAINS ADDITIONAL TEST SITE INFORMATION. Fungus Stain No yeast or mold observed. Performed By: #### M600.1900 #### [facility] [place], [address] PROGRESS Observed: 08/23/2018 Status: COMPLETED Source: [place] 4:55 PM [facility] REPOSITORY [facility] ID: [id number] Author: Cecy Carbajal RN Service: (none) Author Type: (none) Type: Progress Notes Filed: 08/24/2018 4:57 PM Note Text: OPERATIVE NOTATION FOR [facility] SURGICAL PROCEDURE. August 23 2018 Diony Carrillo 1965 [id number] female PROCEDURE: Incision and drainage, R SURGEON: Sendy Allen DPM PSYCHOLOGICAL ASSISTANT: None DEPT: WQ PROVIDER: Sendy Allen DPM POS: [id number] DIAGNOSIS: (E11.621, L97.412) Diabetic ulcer of right [...] - Clean Operative note dictated in the [facility] dictation system. BEDSIDE GLUCOSE Collected: 08/23/2018 Status: F Source: [place] 4:23 PM [facility] [place] [place] REPOSITORY TYPE CODE TESTS RESULT OUT OF REFERENCE UNITS RANGE LAB L501.080 70-110 mg/dL High BEDSIDE GLU 211 Result Comment: MANAGEMENT OF PATIENT CARE PER NURSING PROTOCOL Performed By: #### L501.080 #### [facility] Point of Care [address] [place] [address] BEDSIDE GLUCOSE Collected: 08/23/2018 Status: F Source: [place] 3:52 PM [facility] [place] [place] REPOSITORY TYPE CODE TESTS RESULT OUT OF REFERENCE UNITS RANGE LAB L501.080 70-110 mg/dL Low BEDSIDE GLU 55 Result Comment: MANAGEMENT OF PATIENT CARE PER NURSING PROTOCOL Performed By: #### L501.080 #### [facility] Point of [facility] [address] [place] [address] BEDSIDE GLUCOSE Collected: 08/23/2018 Status: F Source: [place] 3:11 PM [facility] [place] [place] REPOSITORY TYPE CODE TESTS RESULT OUT OF REFERENCE UNITS RANGE LAB L501.080 70-110 mg/dL High BEDSIDE GLU 145 Result Comment: MANAGEMENT OF PATIENT CARE PER NURSING PROTOCOL Performed By: #### L501.080 #### [facility] Point [facility] [address] [place] [address] BEDSIDE GLUCOSE Collected: 08/23/2018 Status: F Source: [place] 2:53 PM [facility] [place] [place] REPOSITORY TYPE CODE TESTS RESULT OUT OF RANGE REFERENCE UNITS LAB L501.080 70-110 mg/dL Normal BEDSIDE GLU 74 Result Comment: MANAGEMENT OF PATIENT CARE PER NURSING PROTOCOL Performed By: #### L501.080 #### [facility] Point [facility] [address] [place] [address] FOOT 2 VIEWS Observed: 08/23/2018 Status: F Source: [place]ULL 2:11 PM [facility] [place] [place] REPOSITORY [facility] Imaging Services [address] [place] [address] Foot 2 Views MR#: [id number] Acct: [id number] Name: DIONY CARRILLO Rep #: [id number] : 1965 F 53 From: Carmelita Bettencourt MD PCP: Alessandro Eric MD Status: ADM IN Study: Foot 2 Views Date of Exam: 08/23/18 Exam# [id number] Ordering Dr: Sendy Allen DPM STUDY: X-RAY [...] , CC: BRITTANIE Allen; Alessandro Eric MD Car Designer: Signed CONSULTATION Observed: 08/23/2018 Status: F Source: [place] 12:32 PM [facility] [place] [place] REPOSITORY [facility] Medical Records Department [address] [place] [address] Consultation 08/23/18 1227 MR#: [id number] Acct: [id number] Name: DIONY CARRILLO Rep #: [id number] : 1965 53 From: Kike Tello MD PCP: Alessandro Eric MD Status: ADM IN Y Location: [facility] [id number] Problem List (1) Diabetic foot ulcer associated [...] follow, thank you, d/w Dr. Allen. 08/23/18 1232 <Electronically signed by Kike Tello MD> Date Kike Tello MD Cosigner Signature (if applicable): Date CC: BRITTANIE Allen; Annie Duran MD; Alessandro Eric MD; Kike Tello MD Signed BEDSIDE GLUCOSE Collected: 08/23/2018 Status: F Source: [place] 11:21 AM [facility] [place] [place] REPOSITORY TYPE CODE TESTS RESULT OUT OF REFERENCE UNITS RANGE LAB L501.080 70-110 mg/dL High alert BEDSIDE GLU 470 Result Comment: MANAGEMENT OF PATIENT CARE PER NURSING PROTOCOL Performed By: #### L501.080 #### [facility] Point of Care [address] [place] [address] BEDSIDE GLUCOSE Collected: 08/23/2018 Status: F Source: [place]ULL 6:55 AM [facility] [place] [place] REPOSITORY TYPE CODE TESTS RESULT OUT OF REFERENCE UNITS RANGE LAB L501.080 70-110 mg/dL High BEDSIDE GLU 386 Result Comment: MANAGEMENT OF PATIENT CARE PER NURSING PROTOCOL Performed By: #### L501.080 #### [facility] Point of Care [address] [place], [place] [address] CBC W/DIFF, AUTOMATED Collected: 08/23/2018 Status: F Source: HULL 6:00 AM [facility] [place] [place] REPOSITORY TYPE CODE TESTS RESULT OUT OF [...] Lymph 1.55 Performed By: #### L100.0100 #### [facility] [address] [place], [address] BASIC METABOLIC Collected: 08/23/2018 Status: F Source: [place] PROFILE (BMP) 6:00 AM [facility] [place] [place] REPOSITORY TYPE CODE TESTS RESULT OUT OF [...] 9 Performed By: #### L500.2500, L501.6710 #### [facility] [address] [place], [address] CRP Collected: 08/23/2018 Status: F Source: [place] 6:00 AM [facility] [place] [place] REPOSITORY TYPE CODE TESTS RESULT OUT OF RANGE REFERENCE UNITS LAB L501.6710 0.0-3.0 mg/L High 100.00 C-REACTIVE PROT Result Comment: C-Reactive Protein (CRP) provides useful information for the diagnosis, therapy and monitoring of inflammatory processes and associated diseases. For the evaluation of Relative Risk for Cardiovascular Disease, a High Sensitivity CRP (HSCRP) should be ordered. Performed By: #### L500.2500, L501.6710 #### [facility] [address] [place], [address] BEDSIDE GLUCOSE Collected: 08/23/2018 Status: F Source: [place] 12:24 AM [facility] [place] [place] REPOSITORY TYPE CODE TESTS RESULT OUT OF REFERENCE UNITS RANGE LAB L501.080 70-110 mg/dL High BEDSIDE GLU 264 Result Comment: MANAGEMENT OF PATIENT CARE PER NURSING PROTOCOL Performed By: #### L501.080 #### [facility] Point of [facility] [address] [place] [address] BONE (FX/NONFRACTURE) Observed: 08/23/2018 Status: F Source: [place] 12:00 AM [facility] [place] [place] REPOSITORY Patient: DIONY CARRILLO : 1965 (53/F) Acct Num: [id number] Phys: Alessandro Perez DO Unit Num: [id number] Loc: MS3 [id number] Specimen: [id number] Received: 08/23/181854 Spec Type: Bone TISSUES 1 [...] after decalcification. / AM:sp 08/24/18 TC:5 CPT: 68214, 70172 HEADER OPERATION: Incision, drainage diabetic foot ulcer [...] on file> Performed By: #### PBON #### [facility] [address] [place], [address] BEDSIDE GLUCOSE Collected: 08/22/2018 Status: F Source: [place] 9:57 PM [facility] [place] [place] REPOSITORY TYPE CODE TESTS RESULT OUT OF REFERENCE UNITS RANGE LAB L501.080 70-110 mg/dL High BEDSIDE GLU 326 Result Comment: MANAGEMENT OF PATIENT CARE PER NURSING PROTOCOL Performed By: #### L501.080 #### [facility] Point of Care [address] [place] [address] HISTORY AND PHYSICAL Observed: 08/22/2018 Status: F Source: [place] EXAM 6:11 PM [facility] [place] [place] REPOSITORY [facility] Medical Records Department [address] [facility] [place] [address] History and Physical 08/22/18 1541 MR#: [id number] Acct: [id number] Name: DIONY CARRILLO Rep #: [id number] : 1965 53 From: Valencia Peterson MANAGER EDUCATION-C PCP: Alessandro Eric MD Status: ADM IN Y Location: [facility] [id number] <Valencia Peterson - Last Filed: 08/22/18 16:40> [...] 1994, section x2. 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: No pertinent CONTROL EQUIPMENT ELECTRICIAN history Lives: Spouse/ Significant Other Smoking Status: [...] prophylaxis- SCDs. This patient was seen by RONNI MathewsC under the supervision of Dr. Humphries. <Annie Duarn - Last Filed: 08/22/18 18:11> History of [...] in as a direct admission from the heavy media operator office for chronic bilateral left wounds, worse in the left leg. Patient has history of bilateral ray amputations done 3/4 years ago. She admits to being noncompliant with her diet. Her last HbA1c was reported 12.8 more than 3 months ago. She has been following up with a heavy media operator for chronic nonhealing ulcers. She is [...] meds Code Visit Inpatient E AND M: 20796 Init Hosp L3 08/22/18 1640 <Electronically signed by Valencia TORRES> Date Valencia TORRES 11/13/18 1811<Electronically signed by Annie Duran MD> Cosigner Signature: Date (if applicable) Annie Duran MD CC: BRIAN Peterson; Annie Duran MD; Alessandro Eric MD Signed ERYTHROCYTE SED RATE Collected: 08/22/2018 Status: F Source: [place] 4:50 PM [facility] [place] [place] REPOSITORY TYPE CODE TESTS RESULT OUT OF RANGE REFERENCE UNITS LAB L102.0000 0-30 mm/hr High SED RATE 123 Performed By: #### L101.9900 #### [facility] [address] [place], [place], [address] PROTHROMBIN TIME W/INR Collected: 08/22/2018 Status: F Source: [place] 4:50 PM [facility] [place] [place] REPOSITORY TYPE CODE TESTS RESULT OUT OF RANGE REFERENCE UNITS LAB L300.4150 11.7-14.9 SECONDS Normal PROTIME 13.8 LAB L300.4200 Normal INR 1.1 Performed By: #### L300.3900 #### [facility] [address] [place], [address] COMPREHENSIVE METABOLIC Collected: 08/22/2018 Status: F Source: [facility] 4:50 PM [facility] [place] [place] REPOSITORY TYPE CODE TESTS RESULT OUT OF [...] GAP 10 Performed By: #### L500.4050 #### [facility] [address] [place], [place], [address] HEMOGLOBIN A1C Collected: 08/22/2018 Status: F Source: [place] 4:50 PM [facility] [place] [place] REPOSITORY TYPE CODE TESTS RESULT OUT OF RANGE REFERENCE UNITS LAB L501.9985 4.2-6.3 % High HGB A1C 12.0 Performed By: #### L501.9985 #### [facility] [address] [place], [place], [address] CRP Collected: 08/22/2018 Status: F Source: [place] 4:50 PM [facility] [place] [place] REPOSITORY TYPE CODE TESTS RESULT OUT OF RANGE REFERENCE UNITS LAB L501.6710 0.0-3.0 mg/L High 115.00 C-REACTIVE PROT Result Comment: C-Reactive Protein (CRP) provides useful information for the diagnosis, therapy and monitoring of inflammatory processes and associated diseases. For the evaluation of Relative Risk for Cardiovascular Disease, a High Sensitivity CRP (HSCRP) should be ordered. Performed By: #### L501.6710 #### [facility] [address] [place], [address] LOWER EXT NO JOINT Observed: 08/22/2018 Status: F Source: [place] W/WO CONT 4:33 PM [facility] [place] [place] REPOSITORY [facility] Imaging Services [address] [place] [address] Lower Ext No Joint W/WO Cont MR#: [id number] Acct: [id number] Name: DIONY CARRILLO Rep #: [id number] : 1965 F 53 From: Saqib Roberts MD PCP: Alessandro Eric MD Status: ADM IN Study: Lower Ext No Joint W/WO Cont Date of Exam: 08/22/18 Exam# [id number] Ordering Dr: Annie Duran MD STUDY: MRI [...] CC: Annie Duran MD; Alessandro Eric MD Car Designer: Signed BEDSIDE GLUCOSE Collected: 08/22/2018 Status: F Source: [place] 4:23 PM [facility] REPOSITORY TYPE CODE TESTS RESULT OUT OF REFERENCE UNITS RANGE LAB L501.080 70-110 mg/dL High BEDSIDE GLU 383 Result Comment: MANAGEMENT OF PATIENT CARE PER NURSING PROTOCOL Performed By: #### L501.080 #### [facility] Point of Care [address] [place] [address] MRSA WOUND DNA BY Collected: 08/22/2018 Status: F Source: [place] PCR 4:15 PM [facility] [place] [place] REPOSITORY Order Comment: Order Date: 08/22/18 TYPE CODE TESTS RESULT OUT OF RANGE REFERENCE UNITS LAB L8200.1100 Negative Normal MRSA Negative RESULT LAB L8200.1150 Negative High SA RESULT POSITIVE Performed By: #### L8200.1075 #### [facility] [address] [place], [address] Observed: 08/22/2018 Status: F Source: [place] CULTURE, DEEP WOUND 4:15 PM [facility] [place] [place] REPOSITORY Order Date: 08/22/18 Has pt arrived? [...] 1 S (NF) indicates non-formulary drug at [facility]. Approval by Infectious Disease Specialist required [...] 0.5 S (NF) indicates non-formulary drug at [facility]. Approval by Infectious Disease Specialist required before non-formulary drugs may be ordered and/or dispensed. * CLSI guidelines does not recommend testing of cephalosporins. This interpretation is deduced from Beta-lactam/penicillin results. Cult, Anaerobic No anaerobic bacteria isolated. Performed By: #### M100.1500 #### [facility] [address] [place], [address] PROGRESS Observed: 08/22/2018 Status: COMPLETED Source: [place] 3:03 PM [facility] REPOSITORY HNO ID: [id number] Author: Cecy Carbajal RN Service: (none) Author Type: (none) Type: Progress Notes Filed: 08/22/2018 3:05 PM Note Text: Aquacel Ag applied to ulcer of R plantar foot. Covered with sterile 4x4 and secured with alison. BRANDO wrap applied to R foot and ankle per patient request. Wet to dry dressing applied to ulcer of L plantar foot. BRANDO wrap applied to L foot and ankle per patient request. PROGRESS Observed: 08/22/2018 Status: COMPLETED Source: [place] 2:44 PM [facility] REPOSITORY HNO ID: [id number] Author: Sendy Allen Service: (none) Author Type: [...] 2 diabetes mellitus, with fat layer exposed ([facility]) Specimen Request (Final) CCM Swab Smear Result [...] vac therapy. Patient will be admitted to [facility]. Will start her on IV antibiotics. Will get mri. Possible surgery tomorrow pending mri. Will consult ID. Patient is at great risk of lower leg amputation. Patient will greatly benefit from nutrition consult. Her diabetes is very poorly controlled. Sendy Allen DPM CNOV Observed: 08/22/2018 Status: COMPLETED Source: [place] 1:45 PM [facility] REPOSITORY Office Visit (PODIWS) DIONY CARRILLO ([id number]) 1965 F Date Time Provider Department 08/22/18 1:45 PM SENDY ALLEN During your visit today, [...] N/CARPAL TUNNEL SURG 1996 Carpal tunnel decomp, Dr Christiano amezcua - [facility] N/CARPAL TUNNEL SURG 2009 [...] fat layer exposed ([facility]) Specimen Request (Final) CCM Swab Smear Result [...] vac therapy. Patient will be admitted to [facility]. Will start her on IV antibiotics. Will get mri. Possible surgery tomorrow pending mri. Will consult ID. Patient is at great risk of lower leg amputation. Patient will greatly benefit from nutrition consult. Her diabetes is very poorly controlled. BRITTANIE Stark RN 08/22/2018 3:05 PM Signed Aquacel Ag applied to ulcer of R plantar foot. Covered with sterile 4x4 and secured with alison. BRANDO wrap applied to R foot and ankle per patient request. Wet to dry dressing applied to ulcer of L plantar foot. BRANDO wrap applied to L foot and ankle per patient request. Referring Provider: SENDY ALLEN [[id number]] Allergies As of Date: 08/22/2018 Noted Allergy [...] 08/22/18 PROGRESS Observed: 08/22/2018 Status: COMPLETED Source: [place] 1:42 PM [facility] REPOSITORY [facility] ID: [id number] Author: Cecy Carbajal RN Service: (none) Author [...] problems. PROGRESS Observed: 08/18/2018 Status: COMPLETED Source: [place] 12:35 PM [facility] REPOSITORY [facility] ID: [id number] Author: Lilian Bellamy (Rt) Service: (none) Author Type: Fire Hydrant Mechanic Type: Progress Notes Filed: 08/18/2018 12:48 PM [...] PM PROGRESS Observed: 08/18/2018 Status: COMPLETED Source: [place] 10:35 AM [facility] REPOSITORY O ID: [id number] Author: Sendy Allen Service: (none) Author Type: [...] DPM CNOV Observed: 08/18/2018 Status: COMPLETED Source: [place] 10:10 AM [facility] REPOSITORY Office Visit (PODIWS) DIONY CARRILLO ([id number]) 1965 F Date Time Provider Department 08/18/18 [...] (H) 4.3 - 5.6 % Final PCP: Alessnadro Eric MD PAST MEDICAL HISTORY Diagnosis Date [...] Stark RN 08/18/2018 11:27 AM Signed Apply Aquacel Ag every day to ulcers [...] [E11.49] Order(s):XR FOOT GENERAL 3V AP/LAT/OBL BILAT [[id number]] Order #: [id number] FUTURE WOUND CULTURE AND GRAM STAIN [SQWCUL] Order #: [id number] HEAVY DUTY WHEELCHAIR [[id number]] Order #: [id number] CONSULT TO NUTRITION THERAPY [9086] Order #: [id number]: 1 Prescriptions as of 08/18/2018 Sig: GABAPENTIN [...] 08/18/18 WOUND Observed: 08/18/2018 Status: F Source: [place] CULTURE/STAIN 3:10 AM [facility] REPOSITORY Sp. Request/Comment: - Swab Smear Result [...] Doxycycline SUSCEPTIBLE 4 F Performed By: #### REFUGIO #### [facility] [address] [place], [place] [address] EMERGENCY DEPARTMENT Observed: 08/17/2018 Status: F Source: [place] SUMMARY 5:46 PM [facility] [place] [place] REPOSITORY [facility] Medical Records Department [address] [place] [address] Emergency Department Summary 08/17/18 1604 MR#: [id number] Acct: [id number] Name: DIONY CARRILLO Rep #: [id number] : 1965 53 From: Richie Hughes MD [...] Ronnie Saavedra MD at 15:34 EST Tel [phone], Service support , Foot X-Ray 08/17/18 14:52 IMPRESSION: Soft tissue swelling overlying the base of the fifth metatarsal. Status post resection of the mid and distal portion of the fifth metatarsal and fifth toe. Electronically Signed: Ronnie Saavedra MD at 15:10 EST Tel [phone], Service support , Emergency Department Course and Treatment: Patient had her pain treated with morphine IV. She was also given doxycycline p.o. and Zofran IV. She is resting comfortably. Treatment Plan: Patient reports that she has brought in able to get her ankle foot orthotics filled. She also does not have her diabetic shoes. She states that both of these are at [facility] and they will not give them to her until August 28. She was placed in a walking boot on the left and already has one for the right. She was discussed with Dr. Allen and is scheduled to see him tomorrow. She will be discharged instructions to follow-up tomorrow as previously scheduled. She will be given doxycycline and [place]. Return to the emergency department for any worsening symptoms. Disposition: To home in improved and stable condition. Impression: 1. Postsurgical changes to feet bilaterally. This note was generated with [employer] software. It may contain incorrect words, spelling, and punctuation that were not noted in review of the chart prior to signing ED Disposition - Plan for ED Patient: Disposition: Home or Assisted Living Chief Complaint: Lower Extremity Injury Instructions: Diabetes: Treating Minor Foot Infections Prescriptions: Hydrocodone Bitart/Apap 5-325 [[place] 5MG-325MG] 1 tablet PO Q4H PRN PRN [...] your Primary Care Provider. Call [facility] ([phone]) or report to the closest Emergency Room. Call 911 if necessary. 08/17/18 1746 <Electronically signed by Richie Hughes MD> Date Richie Hughes MD Cosigner Signature (If Indicated): Date CC: Alessandro Eric MD CBC W/DIFF, AUTOMATED Collected: 08/17/2018 Status: F Source: [place] 3:01 PM [facility] [place] [place] REPOSITORY TYPE CODE TESTS RESULT OUT OF [...] Lymph 1.40 Performed By: #### L100.0100 #### [facility] [address] [place], [address] BASIC METABOLIC Collected: 08/17/2018 Status: F Source: [place] PROFILE (BMP) 3:01 PM [facility] [place] [place] REPOSITORY TYPE CODE TESTS RESULT OUT OF [...] GAP 9 Performed By: #### L500.2500 #### [facility] [address] [place], [address] FOOT MIN 3 VIEWS Observed: 08/17/2018 Status: F Source: [place] 2:39 PM [facility] [place] [place] REPOSITORY [facility] Imaging Services [address] [place] [address] Foot min 3 Views MR#: [id number] Acct: [id number] Name: DIONY CARRILLO Rep #: [id number] : 1965 F 53 From: Ronnie Saavedra MD PCP: Jeaneth DELVALLE,Alessandro Status: REG ER Study: Foot min 3 Views Date of Exam: 08/17/18 Exam# [id number] Ordering Dr: Richie Hughes MD STUDY: X-RAY [...] Ronnie Saavedra MD at 15:10 EST Tel [phone], Service support , CC: Alessandro Eric MD; Richie Hughes MD Car Designer: Signed FOOT MIN 3 VIEWS Observed: 08/17/2018 Status: F Source: [place] 2:39 PM [facility] [place] [place] REPOSITORY [facility] Imaging Services [address] [place] [address] Foot min 3 Views MR#: [id number] Acct: [id number] Name: DIONY CARRILLO Rep #: [id number] : 1965 F 53 From: Ronnie Saavedra MD PCP: Alessandro Eric MD Status: REG ER Study: Foot min 3 Views Date of Exam: 08/17/18 Exam# [id number] Ordering Dr: Richie Hughes MD STUDY: X-RAY [...] Ronnie Saavedra MD at 15:34 EST Tel [phone], Service support , CC: Alessandro Eric MD; Richie Hughes MD Car Designer: Signed ALBUMIN/CREAT RATIO Collected: 08/02/2018 Status: F Source: [place] 12:11 PM [facility] REPOSITORY TYPE CODE TESTS RESULT OUT OF REFERENCE UNITS RANGE LAB UCRR 20-300 mg/dL 68.6 Creatinine,Ur ine,Ran LAB UALBR 0.0-23.0 mg/L <12.0 Albumin Urine Random LAB UALBCR 0-30 mg/g Not Albumin/Creat calculated Ratio Performed By: #### UACR #### [facility] [facility] [address] [place] [address] CBC AND DIFFERENTIAL Collected: 08/02/2018 Status: F Source: MCADOO 12:10 PM [facility] REPOSITORY TYPE CODE TESTS RESULT OUT OF [...] k/uL Abs Lymph 1.34 LAB AMONO % [place]% 5.3 LAB AAMONO <0.87 k/uL Abs [place] 0.55 LAB AEOS % Eosin% 0.9 LAB AAEOS <0.46 k/uL Abs Eosin 0.09 LAB ABASO % Baso% 0.7 LAB AABASO <0.11 k/uL Abs Baso 0.07 LAB AUNRBC 0 /100 WBC NRBCs 0.0 LAB ABNRBC <0.01 k/uL Absolute nRBC <0.01 LAB DTYP DTYPE Auto Diff Performed By: #### CBCDIF, CMP, VITD, HBA1C #### [facility] [address] [place], [place] [address] COMP METABOLIC PANEL Collected: 08/02/2018 Status: F Source: MCADOO 12:10 PM [facility] REPOSITORY TYPE CODE TESTS RESULT OUT OF REFERENCE UNITS RANGE LAB TP 6.3-8.0 g/dL Test reordered by Protein, [facility]. Total Result Comment: [place] [address] Account Credited LAB ALB 3.9-4.9 g/dL Test Albumin reordered by [facility]. Result Comment: [place] [address] Account Credited LAB CA 8.5-10.2 mg/dL Test Calcium, Total reordered by [facility]. Result Comment: [place] [address] Account Credited LAB TBIL 0.2-1.3 mg/dL Bilirubin, Test Total reordered by [facility]. Result Comment: [place] [address] Account Credited LAB ALKP 34-123 U/L Alkaline Test Phosphatase reordered by [facility]. Result Comment: [place] [address] Account Credited LAB AST 13-35 U/L Test AST reordered by [facility]. Result Comment: [place] [address] Account Credited LAB GLU 74-99 mg/dL Test Glucose reordered by [facility]. Result Comment: [place] [address] Account Credited LAB BUN 7-21 mg/dL Test BUN reordered by [facility]. Result Comment: [place] [address] Account Credited LAB CRET 0.58-0.96 mg/dL Creatinine Test reordered by [facility]. Result Comment: [place] Account Credited LAB NA 136-144 mmol/L Test Sodium reordered by [facility]. Result Comment: [place] [id number] Account Credited LAB K 3.7-5.1 mmol/L Test Potassium reordered by [facility]. Result Comment: [place] [id number] Account Credited LAB CL 97-105 mmol/L Test Chloride reordered by [facility]. Result Comment: A[place] [facility] Account Credited LAB CO2 22-30 mmol/L Test CO2 reordered by [facility]. Result Comment: [place] [facility] Account Credited LAB AGAP 9-18 mmol/L Test Anion Gap reordered by [facility]. Result Comment: [place] [address] Account Credited LAB ALT 7-38 U/L Test reordered ALT by [facility]. Result Comment: [place] [address] Account Credited LAB GFRAA eGFR- Amer. Test reordered by [facility]. Result Comment: [place] [address] Account Credited LAB GFRNAA . eGFR-All Test Other Races reordered by [facility]. Result Comment: [place] [address] Account Credited LAB GFRPED eGFR-Ped. Test Factor reordered by [facility]. Result Comment: [place] [address] Account Credited Performed By: #### CBCDIF, CMP, VITD, HBA1C #### [facility] [employer] [address] [place] [address] VITAMIN D 25 HYDROXY Collected: 08/02/2018 Status: F Source: MCADOO 12:10 PM [facility] REPOSITORY TYPE CODE TESTS RESULT OUT OF REFERENCE UNITS RANGE LAB VITD 31.0-80.0 ng/mL Low Vitamin D 25 13.9 Hydroxy Result Comment: Classification of 25 [place] Vitamin D status: Insufficiency/Moderate Deficiency: < or = 30 ng/mL Sufficiency/Optimal Levels: 31 to 80 ng/mL Toxicity: > 100 ng/mL Test performed by chemiluminescent immunoassay. Performed By: #### CBCDIF, CMP, VITD, HBA1C #### [facility] [employer] [address] [place] [address] HEMOGLOBIN A1C Collected: 08/02/2018 Status: F Source: MCADOO 12:10 PM [facility] REPOSITORY TYPE CODE TESTS RESULT OUT OF REFERENCE UNITS RANGE LAB HGBA1C 4.3-5.6 % High Hemoglobin A1c 12.2 LAB HBA0 mg/dL Est. Average Glucose 303 Result Comment: eAG: (Estimated average glucose) is a calculated value from HgbA1c and is vendor representatives of the average blood glucose level in the last 2-3 month period. Performed By: #### CBCDIF, CMP, VITD, HBA1C #### [facility] [address] [place], [place] [address] COMP METABOLIC PANEL Collected: 08/02/2018 Status: F Source: MCADOO 12:03 PM [facility] REPOSITORY TYPE CODE TESTS RESULT OUT OF REFERENCE UNITS RANGE LAB TP 6.3-8.0 g/dL Protein, Total 7.5 LAB ALB 3.9-4.9 g/dL Albumin 4.3 LAB CA 8.5-10.2 mg/dL Calcium, Total 9.6 LAB TBIL 0.2-1.3 mg/dL Bilirubin, Total 0.2 LAB ALKP 34-123 U/L Alkaline Phosphatase 106 LAB AST 13-35 U/L AST 18 LAB GLU 74-99 mg/dL Glucose High 404 Result Comment: The [place] Diabetes Association (ADA) provides guidance for cutoff [...] Standards of Medical Care in Diabetes 2016, [place] Diabetes Association. Diabetes Care. 2016.39(Suppl 1). LAB [...] actual GFR. Performed By: #### CMP #### [facility] [employer] [address] [place] [id number] PROGRESS Observed: 06/21/2018 Status: COMPLETED Source: MCADOO 3:35 PM [facility] REPOSITORY HNO ID: [id number] Author: Howard Andrews Service: (none) Author Type: Physician Type: Progress Notes Filed: 06/21/2018 9:04 PM Note Text: New Patient Referring Physician: Dr. Alejandro Martinezbasia Carrillo is a 52 year old female [...] CUFF,ACUTE 1996 Rotator cuf repair right, Dr Christiano CHAMORRO MEDIAN N/CARPAL TUNNEL SURG 1996 Carpal tunnel [...] Scan The patient's pertinent medical history from [facility] has been reviewed. PFOMIS forms have been [...] foot mid-hidfoot area, for 1 week. (accession [id number]), Lateral right ankle pain after an injury 3 months ago. (accession [id number]) TECHNIQUE: XR FOOT 3V AP/LAT/OBL RT, XR [...] E11.65) Uncontrolled type 2 diabetes with neuropathy ([facility]) (E11.42) Diabetic polyneuropathy associated with type 2 diabetes mellitus ([facility]) (S86.301A) Injury of peroneal tendon of right [...] necessary. This note was partially generated using [employer] voice recognition system, and there may be some incorrect words, spellings, and punctuation that were not noted in checking the note before saving. Howard SINGH Observed: 06/21/2018 Status: COMPLETED Source: MCADOO 3:30 PM [facility] REPOSITORY Office Visit (GIOVANA) DIONY CARRILLO ([id number]) 1965 F Date Time Provider Department 06/21/18 3:30 PM HOWARD ANDREWS During your visit today, we recorded the following information about you: Howard Andrews MD 06/21/2018 9:04 PM Signed New Patient Referring Physician: Dr. Alejandro Marrufo [...] CUFF,ACUTE 1996 Rotator cuf repair right, Dr Christiano CHAMORRO MEDIAN N/CARPAL TUNNEL SURG 1996 Carpal tunnel decomp, right, Dr Christiano CALI N/CARPAL TUNNEL SURG 2008 Carpal tunnel decomp, [...] Scan The patient's pertinent medical history from [facility] has been reviewed. PFOMIS forms have been [...] foot mid-hidfoot area, for 1 week. (accession [id number]), Lateral right ankle pain after an injury 3 months ago. (accession [id number]) TECHNIQUE: XR FOOT 3V AP/LAT/OBL RT, XR [...] E11.65) Uncontrolled type 2 diabetes with neuropathy ([facility]) (E11.42) Diabetic polyneuropathy associated with type 2 diabetes mellitus ([facility]) (S86.301A) Injury of peroneal tendon of right [...] necessary. This note was partially generated using [employer] voice recognition system, and there may be some incorrect words, spellings, and punctuation that were not noted in checking the note before saving. Howard Andrews M.D. Referring Provider: SENDY ALLEN [[id number]] Allergies As of Date: 06/21/2018 Noted Allergy [...] [M19.271] Order(s):CONSULT TO ORTHOTIC/PROSTHETIC [19991112] Order #: [id number]: 1 Prescriptions as of 06/21/2018 Sig: GABAPENTIN [...] 06/21/18 PROGRESS Observed: 06/21/2018 Status: COMPLETED Source: MCADOO 3:14 PM [facility] REPOSITORY HNO ID: [id number] Author: Erica Santoro Service: (none) Author Type: Bliss Press Operator Type: Progress Notes Filed: 06/21/2018 3:18 PM Note Text: Will send a letter to the patient .(regular mail ) PROGRESS Observed: 06/19/2018 Status: COMPLETED Source: MCADOO 9:40 AM [facility] REPOSITORY HNO ID: [id number] Author: Erica Santoro Service: (none) Author Type: Bliss Press Operator Type: Progress Notes Filed: 06/21/2018 3:18 PM Note Text: Unable to leave a voice mail message mailbox is not setup. Erica Santoro MA PROGRESS Observed: 06/16/2018 Status: COMPLETED Source: MCADOO 2:41 PM [facility] REPOSITORY HNO ID: [id number] Author: Erica Santoro Service: (none) Author Type: Bliss Press Operator Type: Progress Notes Filed: 06/21/2018 3:18 PM Note Text: Unable to leave a voice message, it is Not setup. Erica Santoro MA MRI ANKLE WO IVCON Observed: 06/13/2018 Status: F Source: MCADOO RT 11:00 AM [facility] REPOSITORY * * *Final Report* * * DATE OF EXAM: Jun 13 2018 11:00AM [facility] 0164 - MRI ANKLE WO IVCON RT [...] PERONEUS BREVIS. 4. REMOTE ANKLE LIGAMENTOUS AREAS Car Designer: PSCB Transcribe Date/Time: Jun 13 2018 11:21A Dictated by : ANNELISE LEWIS MD This examination was interpreted and the report reviewed and electronically signed by: MADIHA FORDE MD on Jun 13 2018 1:26PM EST [id number] PROGRESS Observed: 06/13/2018 Status: COMPLETED Source: MCADOO 10:54 AM [facility] REPOSITORY O ID: [id number] Author: Lilian Gamble (Rt) Service: (none) Author Type: Fire Hydrant Mechanic Type: Progress Notes Filed: 06/13/2018 10:54 AM [...] AM PROGRESS Observed: 06/13/2018 Status: COMPLETED Source: MCADOO 8:09 AM [facility] REPOSITORY HNO ID: [id number] Author: Erica Santoro Service: (none) Author Type: Bliss Press Operator Type: Progress Notes Filed: 06/21/2018 3:18 PM Note Text: [facility] CARE GAP REGISTRY DOCUMENTATION (OUTSIDE TEAMLET) Provider [...] MA PROGRESS Observed: 05/31/2018 Status: COMPLETED Source: MCADOO 11:22 AM [facility] REPOSITORY HNO ID: [id number] Author: Sendy Allen Service: (none) Author Type: [...] (H) 4.3 - 5.6 % Final Comment: [place] Diabetes Association guidelines indicate that patients with [...] 2009 Carpal tunnel decomp, LEFT REVIEW OF SYSTEMS [...] of b/l lower extremity is 5/5 ASSESSMENT: (S93.231A) Sprain of anterior talofibular ligament of right [...] DPM CNOV Observed: 05/31/2018 Status: COMPLETED Source: MCADOO 10:55 AM [facility] REPOSITORY Office Visit (PODIWS) DIONY CARRILLO ([id number]) 1965 F Date Time Provider Department 05/31/18 [...] (H) 4.3 - 5.6 % Final Comment: [place] Diabetes Association guidelines indicate that patients with [...] 2009 Carpal tunnel decomp, LEFT REVIEW OF SYSTEMS [...] Sendy Allen DPM Referring Provider: SENDY ALLEN [[id number]] Allergies As of Date: 05/31/2018 Noted Allergy [...] Status:Closed by SENDY ALLEN DPM on 05/31/18 CNPTOUTREACH Observed: 05/24/2018 Status: COMPLETED Source: MCADOO 12:00 AM [facility] REPOSITORY Patient Outreach (FAMPWS) DIONY CARRILLO ([id number]) 1965 F Date Time Provider Department 05/24/18 ERICA SANTORO) FAMPWS During your visit today, we recorded the following information about you: Erica Santoro MA 06/21/2018 3:18 PM Signed [facility] CARE GAP REGISTRY DOCUMENTATION (OUTSIDE TEAMLET) [...] Assessed Reason for Visit: [facility]/Care Gap Outreach [[id number]] Primary Visit Diagnosis:Uncontrolled type 2 diabetes with neuropathy (HCC) [E11.40, E11.65] Other Visit Diagnoses:Screening for hyperlipidemia [Z13.220] Low vitamin D level [R79.89] Encounter for screening fecal occult blood testing [Z12.11] Encounter for screening mammogram for breast cancer [Z12.31] Vitamin D deficiency [E55.9] Order(s):HGB A1C [CDPTQ3G] Order #: [id number] FUTURE ALBUMIN/CREAT RATIO RND UR [SQUACR] Order #: [id number] FUTURE COMP METABOLIC PANEL [SQCMP] Order #: [id number] FUTURE LIPID PANEL BASIC [SQLIPB] Order #: [id number] FUTURE CBC + DIFF [SQCBCDIF] Order #: [id number] FUTURE FECAL OCCULT BLOOD TEST [SQIFOBT] Order #: [id number] FUTURE LOY SCREENING [4111247] Order #: [id number] FUTURE VITAMIN D 25 HYDROXY [SQVITD] Order #: [id number] FUTURE Prescriptions as of 05/24/2018 Sig: GABAPENTIN [...] Follow-up and Disposition History Recorded Letter Text [facility] Department of Family Medicine Alessandro Vaughn MD [address] [place], [place] [address] Dear Diony Carrillo Your health care is [...] Alessandro Vaughn MD Letter Text Family Medicine [place] [address] [facility] [address] Dept: [phone] Erica Santoro MA, Population Health M.A. June 21, 2018 Diony Carrillo [address] [facility] [address] Dear Jessica Orellanakory In an effort to serve your healthcare needs, it has come to the attention of Alessandro Eric MD, your Primary Care Provider, that you are overdue for routine health care. We've attempted to contact you and have been unsuccessful. Please call the office at [phone] to schedule an appointment for Follow Up. [...] have that office fax the results to [phone] Attn: Alessandro Eric MD or bring the records with you to your appointment. We will gladly update your record. If you have any questions, please feel free to call the office at [phone] or message us via [employer]. Thank you for choosing the [facility]. Sincerely, Erica Santoro MA, Population [employer] M.A. (electronically signed to expedite mailing) Encounter Status:Closed by ERICA SANTORO on 06/21/18 PROGRESS Observed: 05/17/2018 Status: COMPLETED Source: MCADOO 3:11 PM [facility] REPOSITORY HNO ID: [id number] Author: Sendy Allen Service: (none) Author Type: Physician Type: Progress Notes Filed: 05/18/2018 12:44 PM Note Text: ? Sendy Allen DPM Department of Podiatry [address] [facility] [address] Dept: [phone] Dept 05/17/2018 Initial Podiatric Office Visit: HPI: [...] TUNNEL SURG 2009 Carpal tunnel decomp, LEFT FAMILY HISTORY Problem [...] right foot, with fat layer exposed (HCC) (M25.571, G89.29) Chronic pain of right ankle [...] DPM CNOV Observed: 05/17/2018 Status: COMPLETED Source: MCADOO 2:55 PM [facility] REPOSITORY Office Visit (PODIWS) DIONY CARRILLO ([id number]) 1965 F Date Time Provider Department 05/17/18 2:55 PM SENDY ALLEN PODCLOTILDE During your visit today, we recorded the following information about you: Sendy Allen DPM 05/18/2018 12:44 PM Signed ? Sendy Allen DPM Department of Podiatry [address] [place] [address] Dept: [phone] Dept 05/17/2018 Initial Podiatric Office Visit: HPI: [...] TUNNEL SURG 2009 Carpal tunnel decomp, LEFT FAMILY HISTORY Problem [...] right foot, with fat layer exposed (HCC) (M25.571, G89.29) Chronic pain of right ankle [...] Schedule your MRI. Referring Provider: SENDY ALLEN [[id number]] Allergies As of Date: 05/17/2018 Noted Allergy [...] of right foot, with fat layer exposed ([facility]) [L97.512] Chronic pain of right ankle [M25.571, G89.29] Other diabetic neurological complication associated with type 2 diabetes mellitus (HCC) [E11.49] Order(s):collagenase (SANTYL) ointmentApply 1 application to affected area once daily. APPLY TO AFFECTED AREADisp: 90 gRfl: 2 MRI ANKLE WO IVCON RT [[id number]] Order #: [id number] FUTURE collagenase (SANTYL) ointmentApply 1 application to affected area once daily. APPLY TO AFFECTED AREADisp: 90 gRfl: 2 DIAB SHOE FOR DENSITY INSERT [[id number]] Order #: [id number] Prescriptions as of 05/17/2018 Sig: GABAPENTIN 800 [...] LEAD ELECTROCARDIOGRAM Observed: 05/11/2018 Status: F Source: HULL 11:53 AM [facility] [place] [place] REPOSITORY [facility] Cardiovascular Services [address] [place] [address] 12 Lead EKG 05/10/18 0509 MR#: [id number] Acct: [id number] Name: DIONY CARRILLO Rep #: [id number] : 1965 52 From: Clifford Barlow MD [...] Normal sinus rhythm Normal ECG Confirmed by CLIFFORD BARLOW MD ([id number]), development editor MARLON GALEANA ([id number]) on 05/11/2018 11:53:00 AM Referred By: CF Confirmed By:CLIFFORD BARLOW MD 05/11/18 1153 Date Clifford Barlow MD CC: Harrison Tim MD; Alessandro Eric MD Signed EMERGENCY DEPARTMENT Observed: 05/10/2018 Status: F Source: [place] SUMMARY 6:43 AM [facility] [place] [place] REPOSITORY [facility] Medical Records Department [address] [place] [address] Emergency Department Summary 05/10/18 0639 MR#: [id number] Acct: [id number] Name: DIONY CARRILLO Rep #: [id number] : 1965 52 From: Shahriar Tim MD PCP: Alessandro Eric MD Status: REG ER - ER Visit Summary Date of Service: 05/10/18 Chief Complaint: [] History of Present Illness: The patient is a 52 F [] Physical Examination: [] Test Results: [] Emergency Department Course and Treatment: [] Treatment Plan: [] Disposition: [] Impression: [] This note was generated with Palmaz Scientification software. It may contain incorrect words, spelling, [...] your Primary Care Provider. Call [facility] ([phone]) or report to the closest Emergency Room. Call 911 if necessary. 05/10/18 0642 <Electronically signed by Shahriar Tim MD> Date Shahriar Tim MD Cosigner Signature (If Indicated): Date CC: Alessandro Eric MD EMERGENCY DEPARTMENT Observed: 05/10/2018 Status: F Source: [place] SUMMARY 6:38 AM [facility] [place] [place] REPOSITORY [facility] Medical Records Department [address] [place] [address] Emergency Department Summary 05/10/18 0505 MR#: [id number] Acct: [id number] Name: DIONY CARRILLO Rep #: [id number] : 1965 52 From: Shahriar Tim MD [...] Near Syncope] This note was generated with Dream Village dictation software. It may contain incorrect words, [...] problems, contact your Primary Care Provider. Call [email or web address] ([phone]) or report to the closest Emergency Room. Call 911 if necessary. 05/10/18 0672 <Electronically signed by Shahriar Tim MD> Date Shahriar Tim MD Cosigner Signature (If Indicated): Date CC: Alessandro Eric MD URINALYSIS, COMPLETE Collected: 05/10/2018 Status: F Source: HULL 5:52 AM [facility] [place] [place] REPOSITORY Order Comment: Order Date: 05/10/18 How was Urine Obtained? BENCH LOOM WEAVER TO SPECIFY TYPE CODE TESTS RESULT OUT [...] URINE SEEN Performed By: #### L400.0001 #### [facility] [address] [place], [address] ,URINE Collected: 05/10/2018 Status: F Source: HULL 5:52 [facility] REPOSITORY Order Comment: Order Date: 05/10/18 TYPE CODE TESTS RESULT OUT OF REFERENCE UNITS RANGE LAB L400.8000 Negative Normal HCGUQUAL Negative Result Comment: Very dilute urine specimens, as indicated by a low specific gravity, may not contain vendor representatives levels of hCG. If is still suspected, a first morning urine specimen should be collected 48 hours later and tested. Performed By: #### L400.7600 #### [facility] [address] [place], [address] CHEST 1 VIEW Observed: 05/10/2018 Status: F Source: HULL (PORTABLE) 5:02 AM [facility] [place] [place] REPOSITORY [facility] Imaging Services [address] [place] [address] Chest 1 View (Portable) MR#: [id number] Acct: [id number] Name: DIONY CARRILLO Rep #: [id number] : 1965 F 52 From: Zay Rodriguez MD PCP: Jeaneth DELVALLE,Alessandro Status: REG ER Study: Chest 1 View (Portable) Date of Exam: 05/10/18 Exam# [id number] Ordering Dr: Shahriar Tim MD STUDY: X-RAY [...] CC: Harrison Tim MD; Alessandro Eric MD Car Designer: Signed BRAIN/HEAD WITHOUT Observed: 05/10/2018 Status: F Source: [place] CONTRAST 5:02 AM [facility] [place] [place] REPOSITORY [facility] Imaging Services [address] [place] [address] Brain/Head without Contrast MR#: [id number] Acct: [id number] Name: DIONY CARRILLO Rep #: [id number] : 1965 F 52 From: Zay Rodriguez MD PCP: Alessandro Eric MD Status: REG ER Study: Brain/Head without Contrast Date of Exam: 05/10/18 Exam# [id number] Ordering Dr: Shahriar Tim MD STUDY: CT [...] CC: Harrison Tim MD; Alessandro Eric MD Car Designer: Signed CBC W/DIFF, AUTOMATED Collected: 05/10/2018 Status: F Source: [place] 4:59 AM [facility] [place] [place] REPOSITORY TYPE CODE TESTS RESULT OUT OF [...] Lymph 2.09 Performed By: #### L100.0100 #### [facility] [address] [place], [address] COMPREHENSIVE METABOLIC Collected: 05/10/2018 Status: F Source: [place] [facility] 4:59 AM [facility] [place] [place] REPOSITORY TYPE CODE TESTS RESULT OUT OF [...] GAP 9 Performed By: #### L500.4050 #### [facility] [address] [place], [place], [address] XR ANKLE 3V AP/LAT/OBL Observed: 04/25/2018 Status: F Source: MCADOO RT 3:08 PM [facility] REPOSITORY * * *Final Report* * * DATE OF EXAM: Apr 25 2018 3:08PM WRX 5297 - XR ANKLE 3V AP/LAT/OBL RT / PROCEDURE REASON: multiple diagnoses * * * * Physician Interpretation * * * * HISTORY: 52-YEAR-OLD FEMALE WITH Pain in right foot . pain on the lateral side of the right foot mid-hidfoot area, for 1 week. (accession [id number]), Lateral right ankle pain after an injury 3 months ago. (accession [id number]) TECHNIQUE: XR FOOT 3V AP/LAT/OBL RT, XR [...] ABOUT THE MIDFOOT UNCHANGED FROM PREVIOUS EXAM. Car Designer: WILLIAM Transcribe Date/Time: Apr 25 2018 3:31P Dictated by : AMBROSIO IVEY MD This examination was interpreted and the report reviewed and electronically signed by: AMBROSIO IVEY MD on Apr 25 2018 3:36PM EST [id number] Observed: 04/25/2018 Status: COMPLETED Source: MCADOO 2:56 PM [facility] REPOSITORY HNO ID: [id number] Author: Alice Segovia (Rt) Lilian Jalloh Service: (none) Author Type: Fire Hydrant Mechanic Type: Progress Notes Filed: 04/25/2018 3:09 PM [...] PM PROGRESS Observed: 04/25/2018 Status: COMPLETED Source: [facility] 2:16 PM [facility] REPOSITORY HNO ID: [id number] Author: Sendy Allen Service: (none) Author Type: Physician Type: Progress Notes Filed: 04/28/2018 4:42 PM Note Text: ? Sendy Allen DPM Department of Podiatry [address] [place] [address] Dept: [phone] Dept 04/25/2018 Initial Podiatric Office Visit: HPI: Diony Carrillo is a 52 year old female. Patient presents with possible R foot fracture. Patient reports injured her foot 3 months ago while in [place] and she believed it to be sprained. Reports that she was not seen in [place] for symptoms. Patient states she was evaluated at [place] ED on 04/18/18 for R foot pain [...] today. Nursing attempted to retrieve records from [place] ED with no success. She has new XR [...] right foot shows no acute fracture. ASSESSMENT: (S93.071A) Sprain of anterior talofibular ligament of right [...] DPM PROGRESS Observed: 04/25/2018 Status: COMPLETED Source: MCADOO 2:12 PM [facility] REPOSITORY HNO ID: [id number] Author: Alvina (Rt) Lilian Galeana Service: (none) Author Type: Fire Hydrant Mechanic Type: Progress Notes Filed: 04/25/2018 2:12 PM [...] DATA: Not applicable SIGNED BY: RT Juhi April 25, 2018 2:12 PM XR FOOT 3V AP/LAT/OBL Observed: 04/25/2018 Status: F Source: [facility] 2:11 PM [facility] REPOSITORY * * *Final Report* * * DATE OF EXAM: Apr 25 2018 2:11PM WRX 5337 - XR FOOT 3V AP/LAT/OBL RT / PROCEDURE REASON: Pain in right foot * * * * Physician Interpretation * * * * HISTORY: 52-YEAR-OLD FEMALE WITH Pain in right foot . pain on the lateral side of the right foot mid-hidfoot area, for 1 week. (accession [id number]), Lateral right ankle pain after an injury 3 months ago. (accession [id number]) TECHNIQUE: XR FOOT 3V AP/LAT/OBL RT, XR [...] ABOUT THE MIDFOOT UNCHANGED FROM PREVIOUS EXAM. Car Designer: PSCB Transcribe Date/Time: Apr 25 2018 3:31P Dictated by : AMBROSIO IVEY MD This examination was interpreted and the report reviewed and electronically signed by: AMBROSIO IVEY MD on Apr 25 2018 3:36PM EST [id number] Observed: 04/25/2018 Status: COMPLETED Source: [facility] 1:40 PM [facility] REPOSITORY Office Visit (PODIWS) DIONY CARRILLO ([id number]) 1965 F Date Time Provider Department 04/25/18 1:40 PM SENDY ALLEN PODCLOTILDE During your visit today, we recorded the following information about you: Sendy Allen DPM 04/28/2018 4:42 PM Signed ? Sendy Allen DPM Department of Podiatry [facility] [address] Dept: [phone] Dept 04/25/2018 Initial Podiatric Office Visit: HPI: Diony Carrillo is a 52 year old female. Patient presents with possible R foot fracture. Patient reports injured her foot 3 months ago while in [place] and she believed it to be sprained. Reports that she was not seen in [place] for symptoms. Patient states she was evaluated at [place] [facility] on 04/18/18 for R foot pain [...] today. Nursing attempted to retrieve records from [place] [facility] with no success. She has new XR [...] Sendy Allen DPM Referring Provider: SENDY ALLEN [[id number]] Allergies As of Date: 04/25/2018 Noted Allergy [...] [M19.079] Order(s):XR ANKLE GENERAL 3V AP/LAT/OBL RT [[id number]] Order #: [id number] FUTURE PNEUMATI WALKING BOOT PREFAB [[id number]] Order #: [id number] meloxicam (MOBIC) 15 mg tabletTake 1 tablet [...] 04/28/18 ANKLE Observed: 04/18/2018 Status: F Source: [facility] 8:30 PM [facility] REPOSITORY Final Report Accession No: [id number] Performed: Apr 18 2018 8:30PM Examination: [...] joints. Interpreting Physician: BRITTANY SOTO M.D. Trans: alyssaolfe : cc: OBSOLETE Observed: 11/03/2017 Status: COMPLETED Source: [facility] 12:00 AM [facility] REPOSITORY Refill (FAMPWS) MENGDIONY DONIS ([id number]) 1965 F Date Time Provider Department 11/03/17 [facility] your visit today, we recorded the following information about you: Sabine Ned JEORME 11/03/2017 2:29 PM Signed Patient calling from [facility] and asking for these rx refills and will have her daughter roll picker and mial to her. Please advise Patient [...] Please advise. Thank you. Sabine Philippe CNP, CUSTODY OFFICER 11/03/2017 2:31 PM Signed [facility] website checked and validated. All prescriptions have [...] JENNIFER: No Authorizing Provider: JUSTIN PHILIPPE) Justin hPilippe CNP Allergies As of Date: 11/03/2017 Noted [...] 11/03/17 HAWK Observed: 11/02/2017 Status: COMPLETED Source: [facility] 12:00 AM [facility] REPOSITORY [facility] DIONY CARRILLO ([id number]) 1965 F Date Time Provider Department 11/02/17 ALESSANDRO ERIC During your visit today, we recorded the following information about you: Digna Warner RN, RN 11/02/2017 12:29 PM Signed Pt called from [facility] to voice that she needs a letter stating that it is ok for her medications to be mailed and for the pt to have them in [place] or they will be confiscated. Daughter or niece will pick this letter up. Pt will call back tomorrow with a contact number for someone to pick letter up. Alessandro Eric MD 11/02/2017 4:32 PM Signed OK; letter done MD Raquel Castillo Ma 11/02/2017 4:34 PM Signed rx at [facility]. Sabine Marino LPN 11/03/2017 2:31 PM Signed Patient returned call from [facility] and went over notes about letter and will contact daughter to come and roll picker letter for her and mail it to [...] More... Letter Text Alessandro Eric MD [address] [place], [place] [address] 11/02/2017 Diony Carrillo CC# [id number] [facility] [address] TO WHOM IT MAY CONCERN: This is to certify that Ms. Diony Carrillo has been under my care for diabetes. She needs to have her insulin mailed to her in [place] so that she can continue to take this medication. Sincerely yours, Alessandro Eric MD Encounter Status:Closed by RAQUEL ALVAREZ MA on 11/02/17 ALLERGIES ALLERGIES DATE TYPE / NAME / CODE REACTION SEVERITY SOURCE CODE 09/28/2018 Drug oxycodone Rash Unknown [place] Allergy/41 HCl/F018014135(RX Community 3466969(SN NORM) [facility] ([place] Repository 09/28/2018 Drug Penicillins/F0010 Shortness of Unknown [place] Allergy/41 66136(RXNORM) breath Community 9545407([facility]) Repository 08/17/2018 Drug oxycodone/B309881 Rash Unknown [place] Allergy/41 558(RXNORM) Community 3528561([facility]) Repository 11/18/2015 DRUG ROPINIROLE INTOLERANCE [address] 7943678( Repository OMED CT) 09/27/2007 DRUG OXYCODONE HCL [address] 5787438( Repository OMED CT) 06/02/2007 Drug PENICILLINS HIVES [facility] Class/[address] [place] [address](SN Repository ED CT) ENCOUNTERS ENCOUNTERS ADMIT/DISCHARGE ACCOUNT NUMBER ADMITTING ENCOUNTER LOCATION SOURCE CLASS 10/31/2018/11/01/19 [id number] Ambulatory [address] Repository 10/20/2018/10/24/19 [id number] Ambulatory [address] Repository 10/13/2018/10/16/19 [id number] Ambulatory [address] Repository 10/09/2018/10/11/19 [id number] Ambulatory [address] Repository 09/29/2018/09/29/20 [id number] Ambulatory [address] Repository 09/29/2018/10/02/20 [id number] Ambulatory [address] Repository 09/28/2018/09/28/20 [id number] Emergency [address] ding:ED Repository 09/28/2018/09/28/20 [id number] Ambulatory BMSBuilding: Pernell 18 BMS.[facility] Repository 09/23/2018/09/24/20 [id number] [place], Ambulatory [place] [address] ding:PCURoom Repository : RNN182Hwa: 1 09/23/2018 [id number] [place], Ambulatory BMSBuilding: Pernell Ghasem BMS.[facility] Repository 09/23/2018 [id number] [place], Ambulatory BMSBuilding: [place]ell Ghasem BMS..[facility] Repository 09/23/2018 [id number] [place], Ambulatory BMSBuilding: [place]ell Ghasem BMS.[facility] Repository 09/21/2018/09/22/20 [id number] Ambulatory BMSBuilding: [place] 18 [facility] Repository 09/21/2018 [id number] Agyep[place], Ambulatory BMSBuilding: Pernell Gopi BMS.[facility] Repository 09/21/2018 [id number] Agyepong, Ambulatory BMSBuilding: [place]ora Gopi BMS.[facility] Repository 09/21/2018 [id number] Agyepong, Ambulatory BMSBuilding: [place]ora Gopi BMS.[facility] Repository 09/21/2018/09/22/20 [id number] Agyepong, Inpatient Pernell Pernell 18 Gopi [facility] ding:ICURoom Repository : [id number]: 1 09/21/2018 [id number] [place]yep[place], Ambulatory BMSBuilding: [place] Gopi BMS.CF.[facility] Repository 09/19/2018/09/19/20 [id number] Ambulatory [address] Repository 09/12/2018/09/12/20 [id number] Ambulatory [address] [place] Repository 09/12/2018/09/13/20 [id number] Ambulatory [address] [place] Repository 09/05/2018/09/09/20 [id number] Chauncey Hassan Chi Inpatient P[place]ell Pernell 18 [facility] ding:TCURoom Repository : REW90Kjz: 1 09/05/2018/09/11/20 [id number] Ambulatory [address] [place] Repository 09/04/2018/09/07/20 [id number] Ambulatory [address] Repository 09/01/2018/09/06/20 [id number] Ambulatory [address] Repository 08/30/2018/09/05/20 [id number] JARED, Inpatient [address] (RES) Encounter [facility] Repository 08/29/2018 [id number] Ambulatory [facility] ding:MRI Repository 08/25/2018/08/30/20 [id number] Chauncey Hassan Chi Inpatient [address] ding:TCURoom Repository : ECG82Thp: 1 08/23/2018 [id number] [facility]ulatory [facility] Repository 08/23/2018 [id number] Ambulatory BMSBuilding: [facility] Repository 08/22/2018/08/25/20 [id number] Ambulatory BMSBuilding: [address] Repository 08/22/2018 [id number] [place] Ambulatory BMSBuilding: [place]ora BMS.[facility] Repository 08/22/2018 [id number] [place] Ambulatory BMSBuilding: Pernell BMS.[facility] Repository 08/22/2018 [id number] [place] Ambulatory BMSBuilding: [place] BMS.[facility] Repository 08/22/2018/08/25/20 [id number] [place] Inpatient [place] [address] Encounter [facility] ding:KZ3Clcw Repository : MI951Lgl: 1 08/22/2018/08/23/20 [id number] Ambulatory [address] Repository 08/18/2018/08/18/20 [id number] Ambulatory [address] [place] Repository 08/18/2018/08/21/20 [id number] Ambulatory [address] [place] Repository 08/17/2018/08/17/20 [id number] Emergency [address] ding:ED Repository 08/02/2018/08/02/20 [id number] Ambulatory [address] [place] Repository 06/21/2018/06/23/20 [id number] Ambulatory [address] [place] Repository 06/13/2018/06/13/20 [id number] Ambulatory [address] [place] Repository 05/31/2018/05/31/20 [id number] Ambulatory [address] [place] Repository 05/17/2018/05/18/20 [id number] Ambulatory [address] [place] Repository 05/10/2018/05/10/20 [id number] Emergency [address] ding:ED Repository 04/25/2018/04/25/20 [id number] Ambulatory [address] [place] Repository 04/25/2018/04/25/20 [id number] Ambulatory [address] [place] Repository 04/25/2018/05/01/20 [id number] Ambulatory [address] [place] Repository 04/18/2018/04/18/[id number] Rosemary Emergency [address] lding:[address] and Emergency [place] DeptRoom: [place] [address]E C8VOEyh: Repository A1E A1ED25 PAYERS PAYERS ENCOUNTER GUARANTOR PAYER SUBSCRIBER SOURCE 09/28/2018 DIONY CLAYTON Primary DIONY CLAYTON [place]ora [id number] Insurance:MEDICARE SALAHDOB: [facility] PART A [id number] Repository [address]Xvu: [phone] [id number] [phone] () Date:2018-09-28 09/28/2018 Secondary DIONY CLAYTON [place] Insurance:MEDICAIDPol SALAHDOB: Community icy Number: [id number] Hospital [id number] Repository Date:2018-09-28 09/28/2018 Tertiary NOT GIVENUNK [place] Insurance:SELF PAY [facility] Number: Effective Repository Date:2018-09-28 09/28/2018 DIONY CLAYTON Primary DIONY ARNOLD [place] [id number] Insurance:MEDICARE SALAHDOB: Community [place] PART A [facility] [id number] [place] Number: Repository [address]Exh: 330 [id number] [phone] (HP) Date:2018-09-22 09/28/2018 Secondary DIONY CLAYTON [place] Insurance:MEDICAIDPol SALAHDOB: Community icy Number: [id number] Hospital [id number] Repository Date:2018-09-22 09/28/2018 Tertiary NOT GIVENUNK [place] Insurance:SELF PAY [facility] Number: Effective Repository Date:2018-09-28 09/23/2018 DIONY CLAYTON Primary DIONY ARNOLD [place] [id number] Insurance:MEDICARE SALAHDOB: Community [place] PART A [facility] [id number] [facility] [place] [facility] [place] Number: Repository [address]Pqm: 330 [id number] [phone] (HP) Date:2018-09-23 09/23/2018 Secondary DIONY CLAYTON [place] Insurance:MEDICAIDPol SALAHDOB: Community icy Number: [id number] Hospital [id number] Repository Date:2018-09-23 09/23/2018 Tertiary NOT GIVENUNK [place] Insurance:SELF PAY [facility] Number: Effective Repository Date:2018-09-23 09/23/2018 DIONY CLAYTON Primary DIONYRYAN ARNOLD [place] [id number] Insurance:MEDICARE SALAHDOB: Community [place] PART A [facility] [id number] [facility] [place] Number[place] Repository [address]Dak: 330 [id number] [phone] (HP) Date:2018-09-23 09/23/2018 Secondary DIONY CLAYTON [place] Insurance:MEDICAIDPol SALAHDOB: Community icy Number: [id number] Hospital [id number] Repository Date:2018-09-23 09/23/2018 Tertiary NOT GIVENUNK [place] Insurance:SELF PAY [facility] Number: Effective Repository Date:2018-09-23 09/23/2018 DIONY CLAYTON Primary DIONY CLAYTON [place] [id number] Insurance:MEDICARE SALAHDOB: Community [place] PART A [facility] [id number] Hospital [facility] [place] Number: Repository [address]Wam: 330 [id number] [phone] (HP) Date:2018-09-23 09/23/2018 Secondary DIONY CLAYTON [place] Insurance:MEDICAIDPol SALAHDOB: Community icy Number: [id number] Hospital [id number] Repository Date:2018-09-23 09/23/2018 Tertiary NOT GIVENUNK [place] Insurance:SELF PAY [facility] Number: Effective Repository Date:2018-09-23 09/23/2018 DIONY CLAYTON Primary DIONY ARNOLD [place] [id number] Insurance:MEDICARE SALAHDOB: Community [place] PART A [facility] [id number] Hospital - [place] Number: Repository [address]Wqq: 330 [id number] [phone] (HP) Date:2018-09-23 09/23/2018 Secondary DIONY CLAYTON [place] Insurance:MEDICAIDPol SALAHDOB: Community icy Number: [id number] Hospital [id number] Repository Date:2018-09-23 09/23/2018 Tertiary NOT GIVENUNK [place] Insurance:SELF PAY [facility] Number: Effective Repository Date:2018-09-23 09/21/2018 DIONY CLAYTON Primary DIONY CLAYTON [place] [id number] Insurance:MEDICARE SALAHDOB: Community [place] PART A [facility] [id number] [facility] Number: Repository [address]Feb: 330 [id number] [phone] (HP) Date:2018-09-20 09/21/2018 Secondary DIONY CLAYTON [place] Insurance:MEDICAIDPol SALAHDOB: Community icy Number: [id number] Hospital [id number] Repository Date:2018-09-20 09/21/2018 Tertiary NOT GIVENUNK [place] Insurance:SELF PAY [facility] Number: Effective Repository Date:2018-09-21 09/21/2018 DIONY ARNOLD Primary DIONY ARNOLD [place] [id number] Insurance:MEDICARE SALAHDOB: Community [place] PART A [facility] [id number] [facility] [place] Number: Repository [address]Drc: 330 [id number] [phone] (HP) Date:2018-09-20 09/21/2018 Secondary DIONY CLAYTON [place] Insurance:MEDICAIDPol SALAHDOB: [facility] icy Number: [id number] Hospital [id number] Repository Date:2018-09-20 09/21/2018 Tertiary NOT GIVENUNK [place] Insurance:SELF PAY [facility] Number: Effective Repository Date:2018-09-21 09/21/2018 DIONY ARNOLD Primary DIONY ARNOLD [place]ell [id number] Insurance:MEDICARE SALAHDOB: Community [place] PART A [facility] [id number] Highlands [facility] [place] Number: Repository [address]Dea: 330 [id number] [phone] (HP) Date:2018-09-20 09/21/2018 Secondary DIONY CLAYTON [place] Insurance:MEDICAIDPol SALAHDOB: [facility] icy Number: [id number] Hospital [id number] Repository Date:2018-09-20 09/21/2018 Tertiary NOT GIVENUNK [place] Insurance:SELF PAY [facility] Number: Effective Repository Date:2018-09-21 09/21/2018 DIONY Marrufo Primary DIONY Marrufo [place] [id number] Insurance:MEDICARE SALAHDOB: Community [place] PART A [facility] [id number] [place] Number: Repository [address]Chl: 330 [id number] [phone] (HP) Date:2018-09-20 09/21/2018 Secondary DIONY M [place] Insurance:MEDICAIDPol SALAHDOB: Community icy Number: [id number] Hospital [id number] Repository Date:2018-09-20 09/21/2018 Tertiary NOT GIVENUNK [place] Insurance:SELF PAY [facility] Number: Effective Repository Date:2018-09-20 09/21/2018 DIONY Marrufo Primary DIONY Marrufo [place] [id number] Insurance:MEDICARE SALAHDOB: Community [place] PART A [facility] [id number] Hospital [facility] [place] Number: Repository [address]Qgh: 330 [id number] [phone] (HP) Date:2018-09-20 09/21/2018 Secondary DIONY M [place] Insurance:MEDICAIDPol SALAHDOB: [facility] icy Number: [id number] Hospital [id number] Repository Date:2018-09-20 09/21/2018 Tertiary NOT GIVENUNK [place] Insurance:SELF PAY [facility] Number: Effective Repository Date:2018-09-20 09/21/2018 DIONY Marrufo Primary DIONY Marrufo [place] [id number] Insurance:MEDICARE SALAHDOB: [facility] BATDO PART A [facility] [id number] Hospital - [place] Number: Repository [address]Slh: 330 [id number] [phone] (HP) Date:2018-09-20 09/21/2018 Secondary DIONY M [place] Insurance:MEDICAIDPol SALAHDOB: [facility] ic Number: [id number] Hospital [id number] Repository Date:2018-09-20 09/21/2018 Tertiary NOT GIVENUNK [place] Insurance:SELF PAY [facility] Number: Effective Repository Date:2018-09-21 09/05/2018 DIONY Marrufo Primary DIONY Marrufo [place] [id number] Insurance:MEDICARE SALAHDOB: Community [place] PART A [facility] [id number] Hospital [facility] [place] Number: Repository [address]Dvm: 330 [id number] [phone] (HP) Date:2018-09-05 09/05/2018 Secondary DIONY M [place] Insurance:MEDICAIDPol SALAHDOB: [facility] icy Number: [id number] Hospital [id number] Repository Date:2018-09-05 09/05/2018 Tertiary NOT GIVENUNK [place] Insurance:SELF PAY [facility] Number: Effective Repository Date:2018-09-05 08/29/2018 DIONY Marrufo Primary DIONY Marrufo [place] [id number] Insurance:MEDICARE SALAHDOB: [facility] [place] PART A [facility] [id number] Hospital - [place] Number: Repository [address]Qnt: 330 [id number] [phone] (HP) Date:2018-08-29 08/29/2018 Secondary DIONY Niru [place] Insurance:MEDICAIDPol SALAHDOB: [facility] icy Number: [id number] Hospital [id number] Repository Date:2018-08-29 08/29/2018 Tertiary NOT GIVENUNK [place] Insurance:SELF PAY [facility] Number: Effective Repository Date:2018-08-29 08/25/2018 DIONY Marrufo Primary DIONY Marrufo [place] [id number] Insurance:MEDICARE [facility]HDOB[facility] [id number] Hospital - [place] Number: Repository [address]Tki: 330 [id number] [phone] (HP) Date:2018-08-25 08/25/2018 Secondary DIONY Niru [place] Insurance:MEDICAIDPol SALAHDOB: [facility] icy Number: [id number] Hospital [id number] Repository Date:2018-08-25 08/25/2018 Tertiary NOT GIVENUNK [place] Insurance:SELF PAY [facility] Number: Effective Repository Date:2018-08-25 08/23/2018 DIONY Marrufo Primary DIONY Marrufo [place] [id number] Insurance:MEDICARE SALAHDOB: Community [place] PART A [facility] [id number] Hospital - [place] Number: Repository [address]Pfp: 330 [id number] [phone] (HP) Date:2018-08-22 08/23/2018 Secondary DIONY M [place] Insurance:MEDICAIDPol SALAHDOB: Community icy Number: [id number] Hospital [id number] Repository Date:2018-08-22 08/23/2018 Tertiary NOT GIVENUNK [place] Insurance:SELF PAY [facility] Number: Effective Repository Date:2018-08-22 08/23/2018 DIONY Marrufo Primary DIONY Marrufo [place] [id number] Insurance:MEDICARE SALAHDOB: [facility] [id number] [facility] [place] Number: Repository [address]Zli: 330 [id number] [phone] (HP) Date:2018-08-22 08/23/2018 Secondary DIONY M [place] Insurance:MEDICAIDPol SALAHDOB: [facility] icy Number: [id number] Hospital [id number] Repository Date:2018-08-22 08/23/2018 Tertiary NOT GIVENUNK [place] Insurance:SELF PAY [facility] Number: Effective Repository Date:2018-08-23 08/22/2018 DIONY Marrufo Primary DIONY Marrufo P[place] [id number] Insurance:MEDICARE SALAHDOB: [facility] PART A [facility] [id number] [facility] [place] Number: Repository [address]Zwa: 330 [id number] [phone] (HP) Date:2018-08-22 08/22/2018 Secondary DIONY M [place] Insurance:MEDICAIDPol SALAHDOB: [facility] ic Number: [id number] Hospital [id number] Repository Date:2018-08-22 08/22/2018 Tertiary NOT GIVENUNK [place] Insurance:SELF PAY [facility] Number: Effective Repository Date:2018-08-22 08/22/2018 DIONY Marrufo Primary DIONY Marrufo P[place]ell [id number] Insurance:MEDICARE SALAHDOB: [facility] [id number] Hospital [facility] [place] Number: Repository [address]Ddx: 330 [id number] [phone] (HP) Date:2018-08-22 08/22/2018 Secondary DIONY M [place] Insurance:MEDICAIDPol SALAHDOB: Community icy Number: [id number] Hospital [id number] Repository Date:2018-08-22 08/22/2018 Tertiary NOT GIVENUNK [place] Insurance:SELF PAY [facility] Number: Effective Repository Date:2018-08-22 08/22/2018 DIONY Marrufo Primary DIONY Marrufo P[place] [id number] Insurance:MEDICARE SALAHDOB: [facility] [place] PART A [facility] [id number] Hospital [facility] [place] Number: Repository [address]Vdg: 330 [id number] [phone] (HP) Date:2018-08-22 08/22/2018 Secondary DIONY Niru [place] Insurance:MEDICAIDPol SALAHDOB: [facility] ic Number: [id number] Hospital [id number] Repository Date:2018-08-22 08/22/2018 Tertiary NOT GIVENUNK [place] Insurance:SELF PAY [facility] Number: Effective Repository Date:2018-08-22 08/22/2018 DIONY Marrufo Primary DIONY Marrufo [place] [id number] Insurance:MEDICARE SALAHDOB: [facility] [id number] Hospital [facility] [place] Number: Repository [address]Kgo: 330 [id number] [phone] (HP) Date:2018-08-22 08/22/2018 Secondary DIONY Niru [place] Insurance:MEDICAIDPol SALAHDOB: [facility] Number: [id number] Hospital [id number] Repository Date:2018-08-22 08/22/2018 Tertiary NOT GIVENUNK [place] Insurance:SELF PAY [facility] Number: Effective Repository Date:2018-08-22 08/22/2018 DIONY Marrufo Primary DIONY Marrufo [place] [id number] Insurance:MEDICARE SALAHDOB: [facility] BATDO PART A [facility] [id number] Hospital [facility] [place] Number: Repository [address]Jva: 330 [id number] [phone] (HP) Date:2018-08-22 08/22/2018 Secondary DIONY M [place] Insurance:MEDICAIDPol SALAHDOB: Community icy Number: [id number] Hospital [id number] Repository Date:2018-08-22 08/22/2018 Tertiary NOT GIVENUNK [place] Insurance:SELF PAY [facility] Number: Effective Repository Date:2018-08-22 08/17/2018 DIONY Marrufo Primary DIONY Marrufo [place] [id number] Insurance:MEDICARE SALAHDOB: Community [place] PART A [facility] [id number] Number: Repository [address]Jpf: 330 [id number] [phone] (HP) Date:2018-08-17 08/17/2018 Secondary DIONY Niru [place] Insurance:MEDICAIDPol SALAHDOB: [facility] icy Number: [id number] Hospital [id number] Repository Date:2018-08-17 08/17/2018 Tertiary NOT GIVENUNK Pernell Insurance:SELF PAY [facility]: Effective Repository Date:2018-08-17 05/10/2018 DIONY ARNOLD Primary DIONY ARNOLD Pernell [id number] Insurance:MEDICARE SALAHDOB: [facility] [id number] Repository [id number]: 330 [id number] [phone] (HP) Date:2018-05-10 05/10/2018 Secondary DIONY ARNOLD Dora Insurance:MEDICAIDPol SALAHDOB: [facility] icy Number: [id number] [id number] Repository Date:2018-05-10 05/10/2018 Tertiary NOT GIVENUNK Pernell Insurance:SELF PAY [facility] Number: Effective Repository Date:2018-05-10 04/18/2018 Primary DIONY M [facility] Insurance:MedicarePol MILLERDOB: [facility] icy Number: [id number] [facility] [id number] [address] [place] [address] Repository Date:Plan Name:[facility] [id number]: () 04/18/2018 Secondary DIONY M [facility] Insurance:MedicarePol MILLERDOB: [place] Number: [id number] [facility] [id number] 1 [facility] Repository Date:Plan Name:VIKTOR Ordaz [id number]: ()
== END 2018-09-24 11:36 | disposition home or self-care (01) ==
LOC: ED 13:13 → PCU 13:39
PROVIDERS: Admitting Provider Hospitalist; Emergency Provider Emergency Medicine; Family Provider Family Medicine; PCP Family Medicine; Visit Provider Hospitalist
DX: R07.89 Other chest pain (principal); I21.4 Non-ST elevation (NSTEMI) myocardial infarction; E78.5 Hyperlipidemia, unspecified; K21.9 Gastro-esophageal reflux disease without esophagitis; G25.81 Restless legs syndrome; E11.65 Type 2 diabetes mellitus with hyperglycemia; F41.9 Anxiety disorder, unspecified; Z95.5 Presence of coronary angioplasty implant and graft; Z79.899 Other long term (current) drug therapy; Z79.02 Long term (current) use of antithrombotics/antiplatelets; Z79.4 Long term (current) use of insulin; Z79.82 Long term (current) use of aspirin; G89.29 Other chronic pain; E11.40 Type 2 diabetes mellitus with diabetic neuropathy, unspecified; F32.9 Major depressive disorder, single episode, unspecified
CPT/HCPCS: 36415; 71045; 80048; 82962; 84484; 85025; 93005; 96360; 96361; 97802; 99218; 99284; J7030; A4216; G0378

== ENCOUNTER 2018-09-28 16:53 | Emergency (ER) | payer MEDICARE, MEDICAID, SELFPAY ==
[2018-09-21 13:23] VITALS: BMI 29.3
[2018-09-28 14:52] VITALS: BMI 29.2
[2018-09-28 16:54] VITALS: BP 100/56; PULSE 70; RESP 14; TEMP 36.8; O2SAT 96; BMI 29.7
--- NOTE | 2018-09-28 17:09 | EKG12_ITS ---
Test Reason : CP Blood Pressure : / mmHG Vent. Rate : 071 BPM Atrial Rate : 071 BPM P-R Int : 150 ms QRS Dur : 086 ms QT Int : 404 ms P-R-T Axes : 039 024 121 degrees QTc Int : 439 ms Normal sinus rhythm Septal infarct , age undetermined T wave abnormality, consider anterolateral ischemia Abnormal ECG Confirmed by SHIRA HA ([id number]), city editor MARLON GALEANA ([id number]) on 10/04/2018 2:39:28 PM Referred By: RERE Confirmed By:SHIRA HA
[2018-09-28 17:10] LABS: Bedside Glucose 120 mg/dL (70-110)
[2018-09-28 17:15] VITALS: BP 100/48; BP 90/60; BP 99/55; PULSE 73; PULSE 75; PULSE 78
--- NOTE | 2018-09-28 17:16 | ED.DCSUM_ITS ---
- ER Visit Summary Date of Service: 09/28/18 Chief Complaint: Dizziness History of Present Illness: The patient is a 53 F presenting with dizziness. She states she was at [employer] and had an episode of diarrhea. She states she felt dizzy like she was going to pass out. She denies vertigo. Denies chest pain or shortness of breath. She has nausea with no vomiting. She denies blood in her stool. She was recently admitted to the hospital from 09/20- 09/22/2018 and from 09/23-09/24/2018. She had PCI with DARA to mid LAD and DARA to proximal LAD on 09/21/2018. She was seen by Dr. Jean Baptiste today for follow-up visit. She states when she was seen today she was feeling well. She states she has been taking her medication as directed. Denies other complaints. Physical Examination: Vitals are stable. Patient is afebrile. Alert no acute distress. HEENT exam is unremarkable. Neck is supple. Lungs are clear and equal bilaterally. Heart is regular rate and rhythm. Abdomen is soft nontender nondistended. No guarding or rebound Extremities are unremarkable. Skin is warm and dry. No focal neurologic deficit. Remainder of exam is unremarkable. Emergency Department Course and Treatment: EKG is sinus rate of 71, lateral T wave inversion and Wellens pattern in V2, this is similar to previous. CBC normal except hemoglobin 10.9. Chemistries show glucose 120, BUN 24, creatinine 1.22. Previous creatinine was 0.86. Troponin 0.073 which is trending down. Chest x-ray shows no acute process. Orthostatic vital signs: pulse went from 73 to 78 and her blood pressure went from 99/55 to 90/60 with standing. She was dizzy with standing. She states she has had problems with dizziness with standing in the past and recently started new medications after her NSTEMI. She is on Imdur 30 mg once a day, lisinopril 5 mg once a day and metoprolol 12.5 mg twice a day. She states she just noticed today that she is supposed to cut her metoprolol in half and has been taking 25 mg twice a day instead of her prescribed 12.5 mg twice a day. Discussed with Dr. Jean Baptiste. He recommends discharge home. She will take her metoprolol as directed. Advised return to ED for worsening complaints. Disposition: Discharge home Impression: Dizziness This note was generated with [employer] dictation software. It may contain incorrect words, spelling, and punctuation that were not noted in review of the chart prior to signing ED Disposition - Plan for ED Patient: Chief Complaint: Dizziness Instructions: ED Dizziness [facility] Referrals: Raúl Eric MD [Primary Care Provider] -
[2018-09-28 17:24] LABS: Absolute Lymphocyte Count 1.77 X10^3/ul (0.83-4.51); Absolute Neutrophil Count 6.5 X10^3/uL (2.0-7.7); Basophil# 0.05 X10^3/uL; Basophil% 0.5 % (0-1); Eosinophil# 0.19 X10^3/uL; Eosinophils% 2.1 % (0-5); Hematocrit 33.8 % (37-47); Hemoglobin 10.9 g/dl (12.0-15.0); Lymphocyte # 1.77 X10^3/ul (4.0); Lymphocyte % 19.3 % (19-41); Mean Corp Hgb Conc 32.2 g/gl (32-36); Mean Corpuscular Volume 86.9 fL (81-99); Mean Platelet Vol. 10.5 fl (6.2-12.0); Monocyte# 0.63 X10^3/uL; Monocyte% 6.9 % (0-10); Neutrophil # 6.49 X10^3/uL (2.7-7.7); Platelet Count 357 K/mm3 (150-450); RBC Distribution Width CV 13.4 % (11.6-14.6); RBC Distribution Width SD 42.6 fl (35.1-43.9); Red Blood Count 3.89 M/mm3 (4.2-5.4); White Blood Count 9.2 K/mm3 (4.4-11.0)
--- NOTE | 2018-09-28 17:24 | RAD_ITS ---
STUDY: X-RAY CHEST REASON FOR EXAM: Female, 53 years old. Substernal chest pain TECHNIQUE: Single AP portable view of the chest. COMPARISON: 09/24/2018 FINDINGS: EKG leads overlie the chest The lungs are clear and expanded. There is no demonstrated pleural abnormality. Normal size heart. Normal mediastinum and elvie. Normal visualized pulmonary arteries. Normal visualized aortic arch and descending thoracic aorta. Normal visualized thoracic spine. Normal visualized ribs, clavicles, and shoulders. There is no demonstrated abnormality of the visualized soft tissue structures of the upper abdomen. RAD/Chest 1 View (Portable) IMPRESSION: Normal x-ray examination of the chest. Electronically Signed: Garrick Lopez MD at 17:53 EST , Service support ,
[2018-09-28 17:28] LABS: POSITIVE COUNT NO; POSITIVE DIFFERENTIAL NO; POSITIVE MORPHOLOGY NO
[2018-09-28] MEDS: Aspirin 81 MG TAB.CHEW 324 MG PO (17:29)
[2018-09-28] MEDS: 0.9% Normal Saline 1,000 ML 1000 ML IV (17:29)
[2018-09-28 17:40] LABS: Anion Gap 9 (5-15); BUN 24 mg/dL (7-18); BUN/Creat Ratio 19.7 RATIO (10-20); Calcium,Total 9.4 mg/dL (8.5-10.1); Chloride 105 mmol/L (98-107); Creatinine, Serum 1.22 mg/dL (0.55-1.02); EST Glomerular Filtration Rate 49 mL/min (>60); Est Glom Filt Rate - Afr Amer 59 mL/min (>60); Estimated Creatinine Clearance 49.92 ml/min; Glucose 120 mg/dL (74-106); Potassium 3.7 mmol/L (3.5-5.1); Sodium Level 139 mmol/L (136-145)
[2018-09-28 18:00] VITALS: O2SAT 98
--- NOTE | 2018-09-28 18:27 | ED.DEP ---
ED Disposition - Plan for ED Patient: Chief Complaint: Dizziness Instructions: ED Dizziness [facility] Referrals: Raúl Eric MD [Primary Care Provider] -
[2018-09-28 18:46] VITALS: BP 105/59; PULSE 84; RESP 17; O2SAT 98
--- NOTE | 2018-09-28 18:46 | ED.RN ---
IV DC'ED, CATHETER INTACT, SMALL GAUZE DRESSING PLACED. DISCHARGE INSTRUCTIONS GIVEN TO AND REVIEWED WITH PATIENT, PATIENT DENIES QUESTIONS OR CONCERNS AND VOICES UNDERSTANDING OF DISCHARGE INSTRUCTIONS. PT TO PRIVATE VEHICLE VIA WHEELCHAIR.
== END 2018-09-28 18:47 | disposition home or self-care (01) ==
PROVIDERS: Emergency Provider Emergency Medicine; Family Provider Family Medicine; PCP Family Medicine
DX: R42 Dizziness and giddiness (principal); R11.0 Nausea; R19.7 Diarrhea, unspecified; E11.9 Type 2 diabetes mellitus without complications; G25.81 Restless legs syndrome; M54.9 Dorsalgia, unspecified; G89.29 Other chronic pain; K21.9 Gastro-esophageal reflux disease without esophagitis; F32.9 Major depressive disorder, single episode, unspecified; F41.9 Anxiety disorder, unspecified; Z79.02 Long term (current) use of antithrombotics/antiplatelets; Z79.4 Long term (current) use of insulin; Z79.899 Other long term (current) drug therapy; I25.2 Old myocardial infarction; Z95.5 Presence of coronary angioplasty implant and graft
CPT/HCPCS: 71045; 80048; 82962; 84484; 85025; 93005; 96360; 99285; J7030; A4216

== ENCOUNTER 2018-11-05 19:34 | Emergency (ER) | payer MEDICARE, MEDICAID, SELFPAY ==
[2018-09-21 13:23] VITALS: BMI 29.3
[2018-11-05 19:35] VITALS: BP 136/81; PULSE 98; RESP 17; TEMP 36.7; O2SAT 99; BMI 30.4
--- NOTE | 2018-11-05 19:45 | ED.VISSUMM ---
- ER Visit Summary Date of Service: 11/05/18 Chief Complaint: There is something growing on my foot History of Present Illness: The patient is a 53 F who is here for a wound check. Patient had an I&D in August by Dr. Forbes. She states the wound has been closing ever since the surgery. Her daughter looked at it this evening and thought there was something growing out of it so she came here. She has not had a fever. Denies any significant drainage. No redness. She also complains of itching. It is all over her body. She took nothing for this at home. Physical Examination: Vital signs reviewed. Heart is regular rate and rhythm. Lungs are clear. Abdomen soft. Skin exam reveals excoriations on the body from where she has been itching. There is a wound on the bottom left foot from a previous I&D. There is granulation tissue growing. There is no necrotic tissue. No erythema. No purulent drainage. Test Results: None performed Emergency Department Course and Treatment: The patient's wound looks like it is healing with granulation tissue. I do not see any abnormal tissue. There is no necrosis. There is no signs of infection. She states that she saw Dr. Forbes this week and he thought it looked well. I will give her Benadryl to help with the itching. She will follow-up with her shank sorter Treatment Plan: [] Disposition: Discharge Impression: Wound check, itching This note was generated with Evtron dictation software. It may contain incorrect words, spelling, and punctuation that were not noted in review of the chart prior to signing ED Disposition - Plan for ED Patient: Chief Complaint: Wound Check Referrals: Raúl Eric MD [Primary Care Provider] -
--- NOTE | 2018-11-05 19:48 | ED.DCSUM_ITS ---
- ER Visit Summary Date of Service: 11/05/18 Chief Complaint: There is something growing on my foot History of Present Illness: The patient is a 53 F who is here for a wound check. Patient had an I&D in August by Dr. Forbes. She states the wound has been closing ever since the surgery. Her daughter looked at it this evening and thought there was something growing out of it so she came here. She has not had a fever. Denies any significant drainage. No redness. She also complains of itching. It is all over her body. She took nothing for this at home. Physical Examination: Vital signs reviewed. Heart is regular rate and rhythm. Lungs are clear. Abdomen soft. Skin exam reveals excoriations on the body from where she has been itching. There is a wound on the bottom left foot from a previous I&D. There is granulation tissue growing. There is no necrotic tissue . No erythema. No purulent drainage. Test Results: None performed Emergency Department Course and Treatment: The patient's wound looks like it is healing with granulation tissue. I do not see any abnormal tissue. There is no necrosis. There is no signs of infection. She states that she saw Dr. Forbes this week and he thought it looked well. I will give her Benadryl to help with the itching. She will follow-up with her public finance specialist Treatment Plan: [] Disposition: Discharge Impression: Wound check, itching This note was generated with ID.me dictation software. It may contain incorrect words, spelling, and punctuation that were not noted in review of the chart prior to signing ED Disposition - Plan for ED Patient: Chief Complaint: Wound Check Referrals: Raúl Eric MD [Primary Care Provider] -
--- NOTE | 2018-11-05 19:48 | ED.DEP ---
ED Disposition - Plan for ED Patient: Disposition: Home or Assisted Living Chief Complaint: Wound Check Instructions: ED Wound Check Post Op No Infec Referrals: Raúl Eric MD [Primary Care Provider] -
[2018-11-05] MEDS: DiphenhydrAMINE 25 MG Capsule PO (20:12)
[2018-11-05 20:43] VITALS: BP 136/81; PULSE 98; RESP 17; O2SAT 99
== END 2018-11-05 20:44 | disposition home or self-care (01) ==
PROVIDERS: Emergency Provider Emergency Medicine; Family Provider Family Medicine; PCP Family Medicine
DX: L29.9 Pruritus, unspecified (principal); I25.10 Atherosclerotic heart disease of native coronary artery without angina pectoris; E11.9 Type 2 diabetes mellitus without complications; I10 Essential (primary) hypertension; K21.9 Gastro-esophageal reflux disease without esophagitis; Z79.02 Long term (current) use of antithrombotics/antiplatelets; Z79.4 Long term (current) use of insulin; Z79.891 Long term (current) use of opiate analgesic; Z79.899 Other long term (current) drug therapy
CPT/HCPCS: 99283

== ENCOUNTER 2018-11-08 11:09 | Inpatient (IN) | payer MEDICARE, MEDICAID, SELFPAY ==
[2018-09-21 13:23] VITALS: BMI 29.3
[2018-11-08 11:30] VITALS: BMI 29.9
--- NOTE | 2018-11-08 11:36 | HP.PCM_ITS ---
Problem List (1) HLD (hyperlipidemia) Status: Chronic Qualifiers: Hyperlipidemia type: pure hypercholesterolemia Qualified Code(s): E78.00 - Pure hypercholesterolemia, unspecified; E78.0 - Pure hypercholesterolemia (2) Neuropathic pain Status: Chronic (3) GERD (gastroesophageal reflux disease) Status: Chronic (4) Hypomagnesemia Status: Chronic (5) Back pain, chronic Status: Chronic (6) Depression Status: Chronic (7) Diabetic foot ulcer associated with type 2 diabetes mellitus Status: Acute Qualifiers: Diabetes mellitus terminal clerk insulin use: with custodial use Qualified Code(s): E11.621 - Type 2 diabetes mellitus with foot ulcer; L97.509 - Non- pressure chronic ulcer of other part of unspecified foot with unspecified severity; Z79.4 - meterman (current) use of insulin (8) RLS (restless legs syndrome) Status: Chronic (9) Type II diabetes mellitus, uncontrolled Status: Chronic (10) Anxiety state Status: Chronic History of Present Illness Date of Admission: 11/08/18 Chief Complaint: Left foot ulceration The patient is a 53 year old F with past medical history significant for CAD status post non-STEMI in August 2018 for which patient underwent intervention, diabetes mellitus type 2 on long-term insulin use with complications including diabetic neuropathy with diabetic foot ulcerations. Patient was apparently on admission for diabetic foot abscess in August 2018 underwent wound debridement transferred to the transitional care unit following medical stabilization in the hospital. Wound cultures during patient hospital stay came back positive for group B strep as well as methicillin sensitive staph aureus. 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 Patient states she did notice increasing discharge over the past week. She also did notice some swelling as well as redness and some pain. Patient admission assessment was consistent with diabetic foot infection with suspected osteomyelitis. Broad-spectrum antibiotic initiated admitted to regular nursing floor Past Medical History Past Medical History (Chronic Problems): Chronic Problems (Last Reviewed 09/28/18 @ 15:32 by Saravanan Jean Baptiste MD) HLD (hyperlipidemia) (Chronic) Neuropathic pain (Chronic) GERD (gastroesophageal reflux disease) (Chronic) Hypomagnesemia (Chronic) Back pain, chronic (Chronic) Depression (Chronic) RLS (restless legs syndrome) (Chronic) Type II diabetes mellitus, uncontrolled (Chronic) Anxiety state (Chronic) Medical History: Medical History (Last Reviewed 09/28/18 @ 15:32 by Saravanan Jean Baptiste MD) HLD (hyperlipidemia) (Chronic) E78.5 Allergies oxycodone HCl [From OxyContin] Allergy (Verified 11/05/18 19:35) Rash Penicillins Allergy (Verified 11/05/18 19:35) Shortness of breath Home Medications: Ambulatory Orders Medication Instructions Recorded Acetaminophen [Tylenol Tablet] 650 mg PO Q6H PRN PRN 09/20/18 Ascorbic Acid [Vitamin C] 500 mg PO BIDCM 09/20/18 Gabapentin [Neurontin] 800 mg PO TIDCM 09/20/18 Insulin Aspart [Novolog Flexpen] 20 units SUBCUT TIDCM 09/20/18 Insulin Glargine [Lantus SoloStar 30 units SUBCUT 0800 09/20/18 Pen] Ropinirole HCl [Requip] 3 mg PO BID 09/20/18 Clopidogrel Bisulfate [Plavix] 75 mg PO DAILY #30 tab 09/22/18 Aspirin E.C. [Ecotrin] 81 mg PO DAILY 09/23/18 Atorvastatin Calcium [Lipitor] 80 mg PO QHS 09/23/18 Lisinopril [Zestril] 5 mg PO DAILY 09/23/18 Metoprolol Tartrate [Lopressor 12.5 mg PO BID 09/23/18 (beta kunal)] Omeprazole [Prilosec] 20 mg PO DAILY 09/23/18 Rosuvastatin Calcium [Crestor] 40 mg PO QHS 09/23/18 Isosorbide Mononitrate [Imdur] 30 mg PO DAILY #30 tab 09/24/18 escitalopram 10 mg tablet 10 mg PO DAILY 09/28/18 promethazine 25 mg tablet 25 mg PO Q6H PRN 09/28/18 Surgical History: - - status post I&D of R foot 5th metatarsal abscess, 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 Bilateral carpal tunnel surgery 1994, right shoulder surgery in 1994, section x2. Psychiatric History: Anxiety, Depression COMMUNITY SUPPORT ASSOCIATE History: No pertinent COMMUNITY SUPPORT ASSOCIATE history Smoking Status: Never smoker - *Family History Maternal History Items: Cancer - Patient had a brother who had testicular cancer; and later cancer in his stomach., Diabetes, Hypertension, - - Her mother at the age of 67 to a blood clot to the brain. She had had multiple strokes preceding that. Patient had 3 brothers who had bypass surgery in their 50s. Paternal History Items: - - Patient states her father when she was 5 years old, denies known medical history, denies known cardiac history. Sibling History Items: - - She has one brother who is secondary to cancer and she does not know what kind of cancer he had. She also has 3 brothers with a history of cardiovascular disease, stents and coronary artery bypass grafting. Review of Systems Constitutional: Denies: Anorexia, Chills, Fever, Night Sweats, Weight Change HEENT: Denies: Head Aches, Sinus Congestion, Sinus Drainage Cardiovascular: Denies: Chest Pain, Orthopnea, Palpitations, Paroxysmal Noc. Dyspnea Respiratory: Denies: Cough, Shortness of breath at rest, Shortness of breath upon exertion, Sputum production Gastrointestinal: Denies: Abdominal Pain, Hematemesis, Hematochezia, Nausea, Melena, Vomiting Genitourinary: Denies: Dysuria, Frequency, Hematuria, Urgency Musculoskeletal: Reports: Leg Pain. Denies: Joint Pain, Joint Tenderness Skin: Reports: Pruritis, Rash, Skin Changes, Wounds Neurological: Denies: Focal weakness, Numbness, Tingling Psychiatric: Denies: Homicidal Ideations, Suicidal Ideations Hematologic/ Lymphatic: Denies: Easy Bruising, Easy Bleeding VTE Information - Inpt Only VTE Present on Admission: No VTE Mechan Device Prophylaxis: Knee High ROCIO Hose VTE Pharm Prophylaxis ordered?: Yes Objective: GENERAL: cooperative HEENT: Atraumatic; moist oral mucosa EYES; Anicteric, Normal Conjunctiva NECK; supple, normal thyroid, no distended JVD. RESPIRATORY: Diminished to auscultation bilaterally, CARDIOVASCULAR: Regular S1 S2, no audible murmurs GI: soft, non-tender, normoactive bowel sounds, : No Renal angle tenderness; EXTREMITIES: An area of ulceration measuring about 3 cm on the plantar surface of the left foot medially with surrounding areas of edema MUSCULOSKELETAL: No Joint Tenderness; no muscle waisting NEURO: Awake; no lateralizing signs. SKIN: Cracked hubbard on both upper and lower extremities in addition to trunk PSYCH; flat affect - Physical Exam Weight: 84.3 kg Body Mass Index (BMI) 29.9 Finger Stick Blood Glucose 120 Assessment/Plan All Active Problems (Last Reviewed 09/28/18 @ 15:32 by Saravanan Jean Baptiste MD) Chest pain (Acute) NSTEMI (non-ST elevated myocardial infarction) (Resolved) Diabetic foot ulcer associated with type 2 diabetes mellitus (Acute) Patient is a 53-year-old lady with history of diabetes mellitus type 2 with complications including diabetic polyneuropathy as well as diabetic foot infections presented with worsening diabetic foot ulceration with edema and copious discharge 1. Acute diabetic foot infection involving the left foot plantar surface. Patient has been admitted to regular nursing floor antibiotics initiated per protocol with Levaquin and Flagyl as well as vancomycin. Patient apparently has allergies to penicillin. Cultures were sent. MRI of the left foot ordered to rule out osteomyelitis. Patient was placed to podiatry Dr. Allen discussed with him next 2. Diabetes mellitus type 2 with complications including diabetic foot infections as well as polyneuropathy. Did continue patient home insulin regimen in addition to Accu-Cheks before meals and at bedtime with sliding scale coverage 3. CAD with previous PCI DARA to mid and proximal LAD in September 2018 4. Hypertension-blood pressure controlled, home medications continued with dose adjustment as needed 5. Dyslipidemia-patient is on statin therapy, continued at home dose 6. Depression with anxiety 7. Restless leg syndrome: Patient is on ropinirole 8. Chronic back pain 9. Diabetic polyneuropathy patient is on gabapentin 10. Obesity with BMI of 30.0 weight loss advised 11. DVT prophylaxis SC Lovenox Code Visit Inpatient E&M: 20976 Init Hosp L3
--- NOTE | 2018-11-08 11:49 | MRI_ITS ---
STUDY: MRI LEFT FOOT WITH AND WITHOUT CONTRAST REASON FOR EXAM: Open wound, abscess at fifth metatarsal base. TECHNIQUE: Standardized fat and water weighted pulse sequences were obtained in all 3 orthogonal planes. COMPARISON: MRI images 08/22/2018 and radiographs 08/26/2018. FINDINGS: Although there is image degradation secondary to patient motion, there is still significant diagnostically useful information available from this examination. Normal talonavicular articulation. Normal calcaneocuboid articulation. There is arthropathy of the navicular-cuneiform articulations with chondral thinning and mild subchondral bone edema (inversion recovery sagittal images 10-15). Normal intercuneiform articulations. Normal first tarsometatarsal articulation. Normal Lisfranc ligament. There is arthropathy of the second through fifth tarsometatarsal joints with chondral thinning and mild subchondral bone edema (inversion recovery sagittal images 11-16). There is amputation of the fifth metatarsal at the level the proximal diaphysis. There is interval development of mild bone edema in the distal aspect of the amputated fifth metatarsal (inversion recovery sagittal image 16) without corresponding decreased T1 bone marrow signal and therefore either representing reactive bone edema or early osteomyelitis. Normal tibialis anterior tendon. Normal extensor hallucis longus tendon. Normal extensor digitorum longus tendons. Normal peroneus longus tendon and distal insertion. Normal peroneus brevis tendon and distal insertion. There is atrophy with fat replacement of the intrinsic muscles of the foot (T1 sagittal images 7-15) suggestive of peripheral neuropathy. There is edema in the intrinsic musculature of the proximal lateral forefoot (inversion recovery sagittal images 12, 13) suggestive of myositis. There is edema in the subcutis adipose space at the plantar lateral aspect of the foot with contrast enhancement (postcontrast T1 sagittal images 12-18) consistent with cellulitis. There is a fluid collection in the plantar lateral subcutis adipose space at the level of the fifth metatarsal amputation (T2 series 6 image 19) measuring approximately 0.9 cm in greatest dimension with wall enhancement (postcontrast T1 series 10 image 19) suggestive of abscess. MRI/Lower Ext No Joint W/WO Cont IMPRESSION: Small fluid collection with wall enhancement at the plantar lateral aspect of the foot suggestive of abscess. Interval development of mild bone edema in the distal aspect of the amputated fifth metatarsal, either reactive bone edema or early osteomyelitis. Arthropathy of the navicular-cuneiform and second through fifth tarsometatarsal joints suggestive of neuropathic arthropathy. Edema in the musculature of the proximal lateral forefoot, suggestive of myositis. Atrophy of the intrinsic muscles of the foot suggestive of peripheral arthropathy. Electronically Signed: Saqib Roberts MD at 16:10 EST Tel , Service support ,
[2018-11-08 12:00] VITALS: BP 128/61; PULSE 84; RESP 18; TEMP 36.9; O2SAT 98
--- NOTE | 2018-11-08 12:03 | PCM.CONS.GEN ---
Reason for Consult Date of Consultation: 11/08/18 Reason for Consultation: diabetic foot ulceration of left foot History of Present Illness: The patient is a 53 year old F with chronic diabetic foot ulceration of left foot >2 months in duration. She has been followed by me for ulceration and was recently admitted for this same ulceration in late 2017. She was treated in august with I and D and wound vac therapy where she was admitted to TCU. Upon discharge from TCU, her wound was progressing well and we transitioned from wound vac to srinivas and boot with peg assisted offloading. Unfortunately, over the last few weeks, this patient has not been staying off her foot. She has been going to the grocery store and laundry mat. she reports that her son will not allow her to use her crutches so she has been more active lately. She was seen by me last Tuesday and her wound was stable free of any infection. Over the past weekend, she was concerned that her wound was getting infected so she presented to emergency room. She was evaluated by the ED and found to have stable ulceration, free of infection. I saw her yesterday and her wound was much larger. there was significant fibrotic appearance to the wound with undermining. there was no drainage or pus but the wound measurements were considerably much larger. Tissue culture was performed at [facility] and is growing gram positive cocci. Patient was seen yesterday and we discussed need for wound vac. unfortunately, many home health agencies will not treat her because of either insurance or because she is not compliant with her arranged home care visits. Because of new bacterial growth on culture and her demonstrated noncompliance, I have recommended hospitalization for mri. I informed patient that pending mri, she may require bone resection vs antibiotics with planned discharge to rehab. Past Medical History Past Medical History (Chronic Problems): Chronic Problems (Last Reviewed 09/28/18 @ 15:32 by Saravanan Jean Baptiste MD) HLD (hyperlipidemia) (Chronic) Neuropathic pain (Chronic) GERD (gastroesophageal reflux disease) (Chronic) Hypomagnesemia (Chronic) Back pain, chronic (Chronic) Depression (Chronic) Diabetic foot ulcer associated with type 2 diabetes mellitus (Chronic) RLS (restless legs syndrome) (Chronic) Type II diabetes mellitus, uncontrolled (Chronic) Anxiety state (Chronic) Medical History: Medical History (Last Reviewed 09/28/18 @ 15:32 by Saravanan Jean Baptiste MD) HLD (hyperlipidemia) (Chronic) E78.5 Allergies oxycodone HCl [From OxyContin] Allergy (Verified 11/05/18 19:35) Rash Penicillins Allergy (Verified 11/05/18 19:35) Shortness of breath Home Medications: Ambulatory Orders Medication Instructions Recorded Acetaminophen [Tylenol Tablet] 650 mg PO Q6H PRN PRN 09/20/18 Ascorbic Acid [Vitamin C] 500 mg PO BIDCM 09/20/18 Gabapentin [Neurontin] 800 mg PO TIDCM 09/20/18 Insulin Aspart [Novolog Flexpen] 20 units SUBCUT TIDCM 09/20/18 Insulin Glargine [Lantus SoloStar 30 units SUBCUT 0800 09/20/18 Pen] Ropinirole HCl [Requip] 3 mg PO BID 09/20/18 Clopidogrel Bisulfate [Plavix] 75 mg PO DAILY #30 tab 09/22/18 Aspirin E.C. [Ecotrin] 81 mg PO DAILY 09/23/18 Atorvastatin Calcium [Lipitor] 80 mg PO QHS 09/23/18 Lisinopril [Zestril] 5 mg PO DAILY 09/23/18 Metoprolol Tartrate [Lopressor 12.5 mg PO BID 09/23/18 (beta kunal)] Omeprazole [Prilosec] 20 mg PO DAILY 09/23/18 Rosuvastatin Calcium [Crestor] 40 mg PO QHS 09/23/18 Isosorbide Mononitrate [Imdur] 30 mg PO DAILY #30 tab 09/24/18 escitalopram 10 mg tablet 10 mg PO DAILY 09/28/18 promethazine 25 mg tablet 25 mg PO Q6H PRN 09/28/18 Surgical History: - - status post I&D of R foot 5th metatarsal abscess, 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 Bilateral carpal tunnel surgery 1994, right shoulder surgery in 1994, section x2. 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 She had had multiple strokes preceding that. Patient had 3 brothers who had bypass surgery in their 50s. Paternal History Items: - - Patient states her father when she was 5 years old, denies known medical history, denies known cardiac history. Sibling History Items: - - She has one brother who is secondary to cancer and she does not know what kind of cancer he had. She also has 3 brothers with a history of cardiovascular disease, stents and coronary artery bypass grafting. Objective: Patient is alert and orientated x 3. She does not appear in any distress Vascular: DP and PT pulses are palpable b/l. CFT is less than 5 seconds. Skin temperature is warm to warm. no erythema is noted Derm: there is full thickness ulceration of left foot with mostly granular appearance. there is some fibrotic slough that was removed with 4x4. there is no purulence or exposed tendon or bone. There is undermining along the medial aspect of wound. ulceration measures approximately 3.5 cm x 2.5 cm x 0.2 cm in depth. M/S: there is b/l 5th ray amputation. there is equinovarus deformity of b/l foot. there is mild swelling present to left lateral foot - Physical Exam Weight: 84.3 kg Body Mass Index (BMI) 29.9 Finger Stick Blood Glucose 120 Assessment/Plan All Active Problems (Last Reviewed 09/28/18 @ 15:32 by Saravanan Jean Baptiste MD) Chest pain (Acute) NSTEMI (non-ST elevated myocardial infarction) (Acute) Patient was examined and informed of plan of care. This patient is noncompliant 53 year old female with poorly controlled diabetes. She has large ulceration to left foot that was getting better but due to her lack of compliance and continued ambulation to left foot, this ulceration is getting progressively larger. I have admitted patient for further work-up of ulceration. I would like to get mri of left foot. will specifically evaluate for osteomyelitis of left 5th metatarsal base. I have informed her that if there is osteomyelitis in 5th metatarsal, further resection may need to be discussed. I have informed her that if further resection is performed, it certainly could lead to further deformity of foot. I have discussed bka as alternative options but she is not interested in this. she would like to save her leg. Current culture from [facility] is growing gram positive cocci. Recommend ID consultation to discuss role of IV antibiotics as alternative to any further amputation. IF mri negative for any abscess or osteomyelitis, would plan to treat with wound vac therapy. I do feel strong that the only way this ulceration will heal is if patient were to become compliant. I do not believe she is willing to remain off this foot at home. I feel she is being too active which is why this ulceration is worsening. I feel she needs extended placement in rehab facility. patient agreeable to going pending further work-up. I will consult wound nurse.
[2018-11-08 12:25] LABS: Absolute Lymphocyte Count 1.34 X10^3/ul (0.83-4.51); Absolute Neutrophil Count 5.1 X10^3/uL (2.0-7.7); Basophil# 0.03 X10^3/uL; Basophil% 0.4 % (0-1); Eosinophil# 0.17 X10^3/uL; Eosinophils% 2.4 % (0-5); Hematocrit 33.3 % (37-47); Hemoglobin 10.5 g/dl (12.0-15.0); Lymphocyte # 1.34 X10^3/ul (4.0); Lymphocyte % 18.9 % (19-41); Mean Corp Hgb Conc 31.5 g/gl (32-36); Mean Corpuscular Hgb 27.3 pg (27.0-32.0); Mean Corpuscular Volume 86.5 fL (81-99); Mean Platelet Vol. 10.4 fl (6.2-12.0); Monocyte# 0.46 X10^3/uL; Monocyte% 6.5 % (0-10); Neutrophil # 5.08 X10^3/uL (2.7-7.7); Neutrophil % 71.8 % (47-70); Platelet Count 331 K/mm3 (150-450); RBC Distribution Width CV 13.1 % (11.6-14.6); RBC Distribution Width SD 40.7 fl (35.1-43.9); Red Blood Count 3.85 M/mm3 (4.2-5.4); White Blood Count 7.1 K/mm3 (4.4-11.0)
[2018-11-08 12:29] LABS: POSITIVE COUNT NO; POSITIVE DIFFERENTIAL NO; POSITIVE MORPHOLOGY NO
[2018-11-08] MEDS: oxyCODONE 5 MG Tablet PO ×3 (12:37→23:24)
[2018-11-08] MEDS: DiphenhydrAMINE 25 MG Capsule PO ×2 (12:37→19:35)
[2018-11-08 12:39] LABS: ALB/GLOB Ratio 0.7 RATIO (0.9-2.4); AST(SGOT) 12 U/L (15-37); Alanine Aminotransfer ALT/SGPT 21 U/L (13-56); Albumin, Serum 3.1 g/dL (3.2-5.0); Alkaline Phosphatase 105 U/L (45-117); Anion Gap 9 (5-15); BUN 20 mg/dL (7-18); BUN/Creat Ratio 17.4 RATIO (10-20); Calcium,Total 8.9 mg/dL (8.5-10.1); Chloride 105 mmol/L (98-107); Creatinine, Serum 1.15 mg/dL (0.55-1.02); EST Glomerular Filtration Rate 52 mL/min (>60); Est Glom Filt Rate - Afr Amer 63 mL/min (>60); Estimated Creatinine Clearance 52.96 ml/min; Globulin 4.2 g/dL (2.2-4.2); Glucose 226 mg/dL (74-106); Magnesium 2.2 mg/dL (1.6-2.6); Potassium 4.5 mmol/L (3.5-5.1); Protein, Total 7.3 g/dL (6.4-8.2); Sodium Level 141 mmol/L (136-145)
--- NOTE | 2018-11-08 12:40 | NURSING ---
wound photo: left heel
[2018-11-08 12:55] LABS: Hemoglobin A1c 11.8 % (4.2-6.3)
[2018-11-08] MEDS: levoFLOXacin IV 750 MG/150 ML BAG 100 MG IV (12:58)
[2018-11-08] MEDS: 0.9% Normal Saline 1,000 ML 75 ML IV (12:59)
[2018-11-08 13:20] LABS: Bedside Glucose 180 mg/dL (70-110)
[2018-11-08] MEDS: Insulin Lispro 100 UNIT/ML INSULN.PEN SQ ×2 (13:22→16:48)
--- NOTE | 2018-11-08 14:53 | CASEMGMT ---
Social Work Note Physician had informed RN BEKA Lundy that he would like pt to go to TCU at discharge. This worker had placed a call to TCU yesterday and left a message regarding referral. LUCRETIA spoke with Traci in TCU. Per Traci she doesn't have any beds at this time. Pt would have to be at [facility] until Tuesday for Medicare to cover pt going to SNF. LUCRETIA will follow up with pt tomorrow to confirm discharge plans. Plan: SNF [facility] [employer], [employer]
[2018-11-08 16:07] LABS: M R Staph aureus DNA By PCR Negative (Negative); Probe Check PASS; Specimen Processing Control PASS; Staph aureus DNA By PCR NEGATIVE (Negative)
[2018-11-08] MEDS: Insulin Lispro 100 UNIT/ML INSULN.PEN 20 UNIT SC (16:48)
[2018-11-08 16:55] LABS: Bedside Glucose 265 mg/dL (70-110)
[2018-11-08] MEDS: Gabapentin 800 MG Tablet PO (17:16)
[2018-11-08 18:39] VITALS: BP 128/74; PULSE 80; RESP 18; TEMP 36.7; O2SAT 97
[2018-11-08] MEDS: Acetaminophen 325 MG Tablet 650 MG PO (19:27)
[2018-11-08 19:32] VITALS: BP 134/81; PULSE 98; RESP 18; TEMP 37.4; O2SAT 99
[2018-11-08 19:51] LABS: Bedside Glucose 87 mg/dL (70-110)
[2018-11-08 21:25] VITALS: PULSE 98
[2018-11-08] MEDS: Metoprolol Tartrate 25 MG Tablet 12.5 MG PO (21:25)
[2018-11-08] MEDS: Pramipexole Di-HCl 0.5 MG Tablet 1.5 MG PO (21:25)
[2018-11-08] MEDS: Atorvastatin Calcium 80 MG Tablet PO (21:26)
[2018-11-08] MEDS: Zolpidem Tartrate 5 MG Tablet PO (23:24)
[2018-11-09] VITALS (12 sets, daily range): BP systolic 104–146; BP diastolic 50–79; PULSE 74–93; RESP 14–16; TEMP 36.2–36.7; O2SAT 92–98; BMI 30.5
[2018-11-09] MEDS: oxyCODONE 5 MG Tablet PO ×3 (03:27→21:01)
[2018-11-09] MEDS: DiphenhydrAMINE 25 MG Capsule PO (03:27)
--- NOTE | 2018-11-09 04:22 | EKG12_ITS ---
Test Reason : AM EKG Blood Pressure : / mmHG Vent. Rate : 075 BPM Atrial Rate : 075 BPM P-R Int : 174 ms QRS Dur : 086 ms QT Int : 400 ms P-R-T Axes : 032 012 033 degrees QTc Int : 446 ms Normal sinus rhythm Normal ECG When compared with ECG of 28-SEP-2018 16:59, ST elevation now present in Lateral leads T wave inversion no longer evident in Anterolateral leads Confirmed by OTTO DELVALLE, DOMINIQUE ([id number]), advertising editor MARLON GALEANA ([id number]) on 11/10/2018 3:46:57 PM Referred By: Rodney Yates Confirmed By:DOMINIQUE MENJIVAR MD
[2018-11-09 05:46] LABS: Absolute Lymphocyte Count 1.96 X10^3/ul (0.83-4.51); Absolute Neutrophil Count 3.4 X10^3/uL (2.0-7.7); Basophil# 0.04 X10^3/uL; Basophil% 0.7 % (0-1); Eosinophils% 3.3 % (0-5); Hematocrit 29.5 % (37-47); Hemoglobin 9.2 g/dl (12.0-15.0); Lymphocyte # 1.96 X10^3/ul (4.0); Lymphocyte % 32.6 % (19-41); Mean Corp Hgb Conc 31.2 g/gl (32-36); Mean Corpuscular Hgb 27.7 pg (27.0-32.0); Mean Corpuscular Volume 88.9 fL (81-99); Mean Platelet Vol. 10.7 fl (6.2-12.0); Monocyte# 0.38 X10^3/uL; Monocyte% 6.3 % (0-10); Neutrophil # 3.43 X10^3/uL (2.7-7.7); Neutrophil % 56.9 % (47-70); Platelet Count 300 K/mm3 (150-450); RBC Distribution Width CV 13.2 % (11.6-14.6); RBC Distribution Width SD 40.6 fl (35.1-43.9); Red Blood Count 3.32 M/mm3 (4.2-5.4)
[2018-11-09 05:47] LABS: POSITIVE COUNT NO; POSITIVE DIFFERENTIAL NO; POSITIVE MORPHOLOGY NO
[2018-11-09 05:48] LABS: Erythrocyte Sedimentation Rate 82 mm/hr (0-30)
[2018-11-09 06:02] LABS: Anion Gap 10 (5-15); BUN 20 mg/dL (7-18); BUN/Creat Ratio 21.4 RATIO (10-20); Calcium,Total 8.2 mg/dL (8.5-10.1); Chloride 107 mmol/L (98-107); Creatinine, Serum 0.94 mg/dL (0.55-1.02); EST Glomerular Filtration Rate 67 mL/min (>60); Est Glom Filt Rate - Afr Amer 81 mL/min (>60); Estimated Creatinine Clearance 64.79 ml/min; Glucose 300 mg/dL (74-106); Potassium 4.3 mmol/L (3.5-5.1); Sodium Level 138 mmol/L (136-145)
[2018-11-09] MEDS: Insulin Lispro 100 UNIT/ML INSULN.PEN SQ ×4 (06:57→21:42)
[2018-11-09 07:00] LABS: Bedside Glucose 276 mg/dL (70-110)
[2018-11-09] MEDS: Gabapentin 800 MG Tablet PO ×2 (07:33→17:52)
[2018-11-09] MEDS: Isosorbide Mononitrate 30 MG Tablet PO (07:33)
[2018-11-09] MEDS: Pantoprazole Sodium 20 MG Tablet PO (07:33)
[2018-11-09] MEDS: Metoprolol Tartrate 25 MG Tablet 12.5 MG PO ×2 (07:33→21:04)
[2018-11-09] MEDS: Escitalopram Oxalate 10 MG Tablet PO (07:35)
[2018-11-09] MEDS: Pramipexole Di-HCl 0.5 MG Tablet 1.5 MG PO ×2 (07:35→21:04)
--- NOTE | 2018-11-09 07:36 | PCM.PN.SRG ---
Subjective: patient seen at bedside this morning. She denies n/v/f/c. she states pain is well controlled. tolerating antibiotics. Objective: Patient is alert and orientated x 3. No acute distress vascular: DP and PT pulses are palpable to left foot. CFT is less than 5 seconds. Skin temperature is warm to warm. minimal erythema is present to left foot. Derm: there is ulceration of left foot with mix of hypergranular tissue and fibrotic appearance. There is sero-purulent drainage present. ulceration measures 3.5 cm x 2.5 cm x 0.2 cm. M/s: no calf pain present to left foot. MRI reviewed. there are reactive changes of distal 5th metatarsal amputation site. there small collection of fluid plantar lateral aspect of left foot concerning for abscess. - Physical Exam Vital Signs Temp Pulse Resp BP Pulse Ox 97.9 F 74 16 122/50 H 98 11/09/18 07:27 11/09/18 07:33 11/09/18 07:27 11/09/18 07:27 11/09/18 07:27 Oxygen Delivery Method Room Air Weight: 85.8 kg Body Mass Index (BMI) 30.5 Finger Stick Blood Glucose 120 Intake and Output for Last 24 Hours 11/07/18 11/08/18 11/09/18 23:59 23:59 23:59 Intake Total 625 / 625 2434 / 2434 Balance 625 / 625 2434 / 2434 Laboratory Tests Past 24 Hrs 11/08/18 11/08/18 11/08/18 12:10 12:10 12:10 WBC 7.1 RBC 3.85 L Hgb 10.5 L Hct 33.3 L MCV 86.5 MCH 27.3 MCHC 31.5 L RDW 13.1 RDW Differential 40.7 Plt Count 331 MPV 10.4 Immature Gran % (Auto) 0.000 Neut % (Auto) 71.8 H Lymph % (Auto) 18.9 L Mineral % (Auto) 6.5 Eos % (Auto) 2.4 Baso % (Auto) 0.4 Absolute Neuts (auto) 5.1 Absolute Lymphs (auto) 1.34 Total Counted Not Reportable ESR Sodium 141 Potassium 4.5 Chloride 105 Carbon Dioxide 27.0 Anion Gap 9 BUN 20 H Creatinine 1.15 H Estim Creat Clear Calc 52.96 Est GFR (MDRD) Af Amer 63 Est GFR (MDRD) Non-Af 52 L BUN/Creatinine Ratio 17.4 Glucose 226 H Hemoglobin A1c 11.8 H Calcium 8.9 Magnesium 2.2 Total Bilirubin 0.30 AST 12 L ALT 21 Alkaline Phosphatase 105 C-React Prot Ext Range Total Protein 7.3 Albumin 3.1 L Globulin 4.2 Albumin/Globulin Ratio 0.7 L S.aureus Protein A PCR MRSA (PCR) 11/08/18 11/09/18 11/09/18 12:35 05:24 05:24 WBC RBC Hgb Hct MCV MCH MCHC RDW RDW Differential Plt Count MPV Immature Gran % (Auto) Neut % (Auto) Lymph % (Auto) Mineral % (Auto) Eos % (Auto) Baso % (Auto) Absolute Neuts (auto) Absolute Lymphs (auto) Total Counted ESR 82 H Sodium 138 Potassium 4.3 Chloride 107 Carbon Dioxide 21.0 Anion Gap 10 BUN 20 H Creatinine 0.94 Estim Creat Clear Calc 64.79 Est GFR (MDRD) Af Amer 81 Est GFR (MDRD) Non-Af 67 BUN/Creatinine Ratio 21.4 H Glucose 300 H Hemoglobin A1c Calcium 8.2 L Magnesium Total Bilirubin AST ALT Alkaline Phosphatase C-React Prot Ext Range 21.70 H Total Protein Albumin Globulin Albumin/Globulin Ratio S.aureus Protein A PCR NEGATIVE MRSA (PCR) Negative 11/09/18 05:24 WBC 6.0 RBC 3.32 L Hgb 9.2 L Hct 29.5 L MCV 88.9 MCH 27.7 MCHC 31.2 L RDW 13.2 RDW Differential 40.6 Plt Count 300 MPV 10.7 Immature Gran % (Auto) 0.200 Neut % (Auto) 56.9 Lymph % (Auto) 32.6 Mineral % (Auto) 6.3 Eos % (Auto) 3.3 Baso % (Auto) 0.7 Absolute Neuts (auto) 3.4 Absolute Lymphs (auto) 1.96 Total Counted Not Reportable ESR Sodium Potassium Chloride Carbon Dioxide Anion Gap BUN Creatinine Estim Creat Clear Calc Est GFR (MDRD) Af Amer Est GFR (MDRD) Non-Af BUN/Creatinine Ratio Glucose Hemoglobin A1c Calcium Magnesium Total Bilirubin AST ALT Alkaline Phosphatase C-React Prot Ext Range Total Protein Albumin Globulin Albumin/Globulin Ratio S.aureus Protein A PCR MRSA (PCR) POC Glucose 11/09/18 11/08/1811/08/19 06:53 19:44 16:46 POC Glucose 276 H 87 265 H 11/08/18 13:06 POC Glucose 180 H Medical Necessity - Tobacco Use Smoking Status: Never smoker Assessment/Plan All Active Problems (Last Reviewed 09/28/18 @ 15:32 by Saravanan Jean Baptiste MD) Chest pain (Acute) NSTEMI (non-ST elevated myocardial infarction) (Resolved) Diabetic foot ulcer associated with type 2 diabetes mellitus (Acute) patient was examined and informed of current findings. I reviewed mri yesterday and again this morning with patient. she has what appears to be reactive changes vs early osteomyelitis of left 5th metatarsal. there is very small fluid collection, about 0.9 cm. I have proposed to patient I&D and bone resection. I feel the hypertrophic bone is contributing to slow healing of this ulceration. Patient is very carcamo on avoiding further ray resection. There is risk of further varus deformity of hindfoot by resecting additional 5th ray but given chronic wound, i feel that cutting more bone is in her best interest. She is not willing to consent to further bone resection. she is willing to proceed with I&D and bone biopsy. I have informed her that following I&D, it is likely she will require wound vac for several weeks followed by rehab placement as I feel this patient is not capable of staying off her foot. I have discussed risks of procedure not limited to failure to heal wound, recurrent abscess, further need of amputation. Patient understands plan of care. I am going to order consult to ID as I do feel she will benefit from course of antibiotics post-op. I do feel that patient does not fully grasp the severity of this ulceration and need of staying off her foot. I am going to place consult to podiatry for 2nd opinion regarding nonhealing wound. I have spoken with Dr. Segovia who will see patient today. patient is npo after 9:30 for planned procedure this afternoon.
--- NOTE | 2018-11-09 07:39 | PCM.PN.HOSP ---
Subjective: Patient seen. MRI obtained the day prior demonstrated Small fluid collection with wall enhancement at the plantar lateral aspect of the foot suggestive of abscess. Interval development of mild bone edema in the distal aspect of the amputated fifth metatarsal, either reactive bone edema or early osteomyelitis. She has been seen by podiatry plans for patient to undergo intervention with incision and drainage and bone resection Objective: GENERAL: cooperative HEENT: Atraumatic; moist oral mucosa EYES; Anicteric, Normal Conjunctiva NECK; supple, normal thyroid, no distended JVD. RESPIRATORY: Diminished to auscultation bilaterally, CARDIOVASCULAR: Regular S1 S2, no audible murmurs GI: soft, non-tender, normoactive bowel sounds, : No Renal angle tenderness; EXTREMITIES: An area of ulceration measuring about 3 cm on the plantar surface of the left foot medially with surrounding areas of edema MUSCULOSKELETAL: No Joint Tenderness; no muscle waisting NEURO: Awake; no lateralizing signs. SKIN: scratch hubbard on both upper and lower extremities in addition to trunk PSYCH; flat affect Vitals/I&O's: Vital Signs Temp Pulse Resp BP Pulse Ox 97.9 F 74 16 122/50 H 98 11/09/18 07:27 11/09/18 07:33 11/09/18 07:27 11/09/18 07:27 11/09/18 07:27 Oxygen Delivery Method Room Air Weight: 85.8 kg Body Mass Index (BMI) 30.5 Finger Stick Blood Glucose 120 Intake and Output for Last 24 Hours 11/07/18 11/08/18 11/09/18 23:59 23:59 23:59 Intake Total 625 / 625 2434 / 2434 Balance 625 / 625 2434 / 2434 Laboratory Results 11/08/18 12:10: Hemoglobin A1c 11.8 H 11/08/18 12:10: WBC 7.1, RBC 3.85 L, Hgb 10.5 L, Hct 33.3 L, MCV 86.5, MCH 27.3, MCHC 31.5 L, RDW 13.1, RDW Differential 40.7, Plt Count 331, MPV 10.4, Immature Gran % (Auto) 0.000, Neut % (Auto) 71.8 H, Lymph % (Auto) 18.9 L, [place] % (Auto) 6.5, Eos % (Auto) 2.4, Baso % (Auto) 0.4, Absolute Neuts (auto) 5.1, Absolute Lymphs (auto) 1.34, Total Counted Not Reportable 11/08/18 12:10: Sodium 141, Potassium 4.5, Chloride 105, Carbon Dioxide 27.0, Anion Gap 9, BUN 20 H, Creatinine 1.15 H, Estim Creat Clear Calc 52.96, Est GFR (MDRD) Af Amer 63, Est GFR (MDRD) Non-Af 52 L, BUN/Creatinine Ratio 17.4, Glucose 226 H, Calcium 8.9, Magnesium 2.2, Total Bilirubin 0.30, AST 12 L, ALT 21, Alkaline Phosphatase 105, Total Protein 7.3, Albumin 3.1 L, Globulin 4.2, Albumin/Globulin Ratio 0.7 L 11/08/18 12:35: S.aureus Protein A PCR NEGATIVE, MRSA (PCR) Negative 11/08/18 13:06: POC Glucose 180 H 11/08/18 16:46: POC Glucose 265 H 11/08/18 19:44: POC Glucose 87 11/09/18 05:24: Sodium 138, Potassium 4.3, Chloride 107, Carbon Dioxide 21.0, Anion Gap 10, BUN 20 H, Creatinine 0.94, Estim Creat Clear Calc 64.79, Est GFR (MDRD) Af Amer 81, Est GFR (MDRD) Non-Af 67, BUN/Creatinine Ratio 21.4 H, Glucose 300 H, Calcium 8.2 L, C-React Prot Ext Range 21.70 H 11/09/18 05:24: ESR 82 H 11/09/18 05:24: WBC 6.0, RBC 3.32 L, Hgb 9.2 L, Hct 29.5 L, MCV 88.9, MCH 27.7, MCHC 31.2 L, RDW 13.2, RDW Differential 40.6, Plt Count 300, MPV 10.7, Immature Gran % (Auto) 0.200, Neut % (Auto) 56.9, Lymph % (Auto) 32.6, [place] % (Auto) 6.3, Eos % (Auto) 3.3, Baso % (Auto) 0.7, Absolute Neuts (auto) 3.4, Absolute Lymphs (auto) 1.96, Total Counted Not Reportable 11/09/18 06:53: POC Glucose 276 H Current Medications Acetaminophen (Tylenol) 650 mg PO Q6H PRN PRN PRN Reason: Mild Pain (scale 0-3)/T>100.7 Last Admin: 11/08/18 19:27 Dose: 650 mg Al Hydroxide/Mg Hydroxide (Mylanta Ii) 30 ml PO Q6H PRN PRN PRN Reason: Gastric burning Ascorbic [facility] (Vitamin C) [facility] Aspirin (Ecotrin) 81 mg PO DAILY@0800 [facility] Last Admin: 11/09/18 07:25 Dose: Not Given Atorvastatin Calcium (Lipitor) 80 mg PO QHS [facility] Last Admin: 11/08/18 21:26 Dose: 80 mg Clopidogrel Bisulfate (Plavix) 75 mg PO DAILY [facility] Last Admin: 11/09/18 07:26 Dose: Not Given Dextrose (D50w Syringe) 0 gm IV X1 PRN; Protocol PRN Reason: Hypoglycemia Diphenhydramine HCl (Benadryl) 25 mg PO TID PRN PRN PRN Reason: ITCHING Last Admin: 11/09/18 03:27 Dose: 25 mg Docusate Sodium (Colace) 100 mg PO BID PRN PRN Reason: Constipation Enoxaparin Sodium (Lovenox) 40 mg SC DAILY@1000 [facility] Last Admin: 11/09/18 07:26 Dose: Not Given Escitalopram Oxalate (Lexapro) 10 mg PO DAILY [facility] Last Admin: 11/09/18 07:35 Dose: 10 mg Gabapentin (Neurontin) 800 mg PO TIDCM [facility] Last Admin: 11/09/18 07:33 Dose: 800 mg Glucagon () 1 mg IM .X1 PRN PRN Reason: Hypoglycemia Metronidazole (Flagyl) 500 mg in 100 mls @ 100 mls/hr IV Q8 [facility] Last Admin: 11/09/18 05:06 Dose: 100 mls/hr Sodium Chloride () 1,000 mls @ 75 mls/hr IV .[id number] [facility] Last Admin: 11/09/18 01:35 Dose: Not Given Levofloxacin (Levaquin Iv) 750 mg in 150 mls @ 100 mls/hr IV Q24 [facility] Last Admin: 11/08/18 12:58 Dose: 100 mls/hr Vancomycin IV Pharmacy to Dose (1 ea/ Sodium Chloride) 500 mls @ 250 mls/hr IV X1 PRN; Protocol PRN Reason: Rx to Dose Vancomycin HCl 750 mg/ Sodium (Chloride) 265 mls @ 250 mls/hr IV Q12H [facility] Last Admin: 11/09/18 06:05 Dose: 250 mls/hr Insulin Glargine (Lantus (Bkc)) 30 units SC 0800 [facility] Last Admin: 11/09/18 07:25 Dose: Not Given Insulin Human Lispro (Humalog Kwikpen (Bk)) 0 unit SQ ACHS [facility]; Protocol Last Admin: 11/09/18 06:57 Dose: 6 u Insulin Human Lispro (Humalog Kwikpen (Bkc)) 20 unit SC 0800,1200,1700 [facility] Last Admin: 11/09/18 07:25 Dose: Not Given Isosorbide Mononitrate (Imdur) 30 mg PO DAILY [facility] Last Admin: 11/09/18 07:33 Dose: 30 mg Lisinopril (Zestril) 5 mg PO DAILY [facility] Magnesium Hydroxide (Milk Of Magnesia) 30 ml PO DAILY PRN PRN PRN Reason: Constipation Metoprolol Tartrate (Lopressor (Beta Tin)) 12.5 mg PO BID [facility] Last Admin: 11/09/18 07:33 Dose: 12.5 mg Non-Formulary Medication (Magnesium Oxide [Magnesium Oxide]) 400 mg PO BID [facility] Nutritional Formula (Lactose Free) (Glucerna Shake) 120 ml PO TIDCM [facility] Last Admin: 11/09/18 07:25 Dose: Not Given Ondansetron HCl (Zofran) 4 mg IV Q8H PRN PRN PRN Reason: NAUSEA Oxycodone HCl (Oxyir) 5 mg PO Q4H PRN PRN PRN Reason: PAIN Last Admin: 11/09/18 07:38 Dose: 5 mg Pantoprazole Sodium (Protonix) 20 mg PO DAILY [facility] Last Admin: 11/09/18 07:33 Dose: 20 mg Pramipexole Dihydrochloride (Mirapex) 1.5 mg PO BID [facility] Last Admin: 11/09/18 07:35 Dose: 1.5 mg Sodium Chloride () 5 - 15 ml IV UD PRN PRN Reason: SALINE FLUSH Zolpidem Tartrate (Ambien (Generic)) 5 mg PO QHS PRN PRN PRN Reason: INSOMNIA Last Admin: 11/08/18 23:24 Dose: 5 mg Medical Necessity - Tobacco Use Smoking Status: Never smoker Assessment/Plan All Active Problems (Last Reviewed 09/28/18 @ 15:32 by Saravanan Jean Baptiste MD) Chest pain (Acute) NSTEMI (non-ST elevated myocardial infarction) (Resolved) Diabetic foot ulcer associated with type 2 diabetes mellitus (Acute) Patient is a 53-year-old lady with history of diabetes mellitus type 2 with complications including diabetic polyneuropathy as well as diabetic foot infections presented with worsening diabetic foot ulceration with edema and copious discharge 1. Acute diabetic foot infection (plantar surface abscess and early osteomyelitis involving the distal aspect of the fifth metatarsal bone). Patient has been admitted to regular nursing floor antibiotics initiated per protocol with Levaquin and Flagyl as well as vancomycin. Patient apparently has allergies to penicillin. Cultures were sent. MRI of the left foot ordered as below. Consult was placed to podiatry medicine Dr. Aleln; Case discussed with him. Also added infectious disease consultation. MRSA screen on admission negative vancomycin discontinued 2. Diabetes mellitus type 2 with complications including diabetic foot infections as well as polyneuropathy. Did continue patient home insulin regimen in addition to Accu-Cheks before meals and at bedtime with sliding scale coverage 3. CAD with previous PCI DARA to mid and proximal LAD in September 2018 4. Hypertension-blood pressure controlled, home medications continued with dose adjustment as needed 5. Dyslipidemia-patient is on statin therapy, continued at home dose 6. Depression with anxiety 7. Restless leg syndrome: Patient is on ropinirole 8. Chronic back pain 9. Diabetic polyneuropathy patient is on gabapentin 10. Obesity with BMI of 30.0 weight loss advised 11. DVT prophylaxis SC Lovenox Clinical Impression(s) from Imaging Studies Lower Extremity MRI 11/08/18 11:49 IMPRESSION: Small fluid collection with wall enhancement at the plantar lateral aspect of the foot suggestive of abscess. Interval development of mild bone edema in the distal aspect of the amputated fifth metatarsal, either reactive bone edema or early osteomyelitis. Arthropathy of the navicular-cuneiform and second through fifth tarsometatarsal joints suggestive of neuropathic arthropathy. Edema in the musculature of the proximal lateral forefoot, suggestive of myositis. Atrophy of the intrinsic muscles of the foot suggestive of peripheral arthropathy. Electronically Signed: Saqib Roberts MD at 16:10 EST Tel , Service support , Code Visit Inpatient E&M: 12592 Subs Hosp L3
--- NOTE | 2018-11-09 07:42 | PN_ITS ---
Subjective: Patient seen. MRI obtained the day prior demonstrated Small fluid collection with wall enhancement at the plantar lateral aspect of the foot suggestive of abscess. Interval development of mild bone edema in the distal aspect of the amputated fifth metatarsal, either reactive bone edema or early osteomyelitis. She has been seen by podiatry plans for patient to undergo intervention with incision and drainage and bone resection Objective: GENERAL: cooperative HEENT: Atraumatic; moist oral mucosa EYES; Anicteric, Normal Conjunctiva NECK; supple, normal thyroid, no distended JVD. RESPIRATORY: Diminished to auscultation bilaterally, CARDIOVASCULAR: Regular S1 S2, no audible murmurs GI: soft, non-tender, normoactive bowel sounds, : No Renal angle tenderness; EXTREMITIES: An area of ulceration measuring about 3 cm on the plantar surface of the left foot medially with surrounding areas of edema MUSCULOSKELETAL: No Joint Tenderness; no muscle waisting NEURO: Awake; no lateralizing signs. SKIN: scratch hubbard on both upper and lower extremities in addition to trunk PSYCH; flat affect Vitals/I&O's: Vital Signs Temp Pulse Resp BP Pulse Ox 97.9 F 74 16 122/50 H 98 11/09/18 07:27 11/09/18 07:33 11/09/18 07:27 11/09/18 07:27 11/09/18 07:27 Oxygen Delivery Method Room Air Weight: 85.8 kg Body Mass Index (BMI) 30.5 Finger Stick Blood Glucose 120 Intake and Output for Last 24 Hours 11/07/18 11/08/18 11/09/18 23:59 23:59 23:59 Intake Total 625 / 625 2434 / 2434 Balance 625 / 625 2434 / 2434 Laboratory Results 11/08/18 12:10: Hemoglobin A1c 11.8 H 11/08/18 12:10: WBC 7.1, RBC 3.85 L, Hgb 10.5 L, Hct 33.3 L, MCV 86.5, MCH 27.3, MCHC 31.5 L, RDW 13.1, RDW Differential 40.7, Plt Count 331, MPV 10.4, Immature Gran % (Auto) 0.000, Neut % (Auto) 71.8 H, Lymph % (Auto) 18.9 L, [place] % (Auto) 6.5, Eos % (Auto) 2.4, Baso % (Auto) 0.4, Absolute Neuts (auto) 5.1, Absolute Lymphs (auto) 1.34, Total Counted Not Reportable 11/08/18 12:10: Sodium 141, Potassium 4.5, Chloride 105, Carbon Dioxide 27.0, Anion Gap 9, BUN 20 H, Creatinine 1.15 H, Estim Creat Clear Calc 52.96, Est GFR (MDRD) Af Amer 63, Est GFR (MDRD) Non-Af 52 L, BUN/Creatinine Ratio 17.4, Glucose 226 H, Calcium 8.9, Magnesium 2.2, Total Bilirubin 0.30, AST 12 L, ALT 21, Alkaline Phosphatase 105, Total Protein 7.3, Albumin 3.1 L, Globulin 4.2, Albumin/Globulin Ratio 0.7 L 11/08/18 12:35: S.aureus Protein A PCR NEGATIVE, MRSA (PCR) Negative 11/08/18 13:06: POC Glucose 180 H 11/08/18 16:46: POC Glucose 265 H 11/08/18 19:44: POC Glucose 87 11/09/18 05:24: Sodium 138, Potassium 4.3, Chloride 107, Carbon Dioxide 21.0, Anion Gap 10, BUN 20 H, Creatinine 0.94, Estim Creat Clear Calc 64.79, Est GFR (MDRD) Af Amer 81, Est GFR (MDRD) Non-Af 67, BUN/Creatinine Ratio 21.4 H, G lucose 300 H, Calcium 8.2 L, C-React Prot Ext Range 21.70 H 11/09/18 05:24: ESR 82 H 11/09/18 05:24: WBC 6.0, RBC 3.32 L, Hgb 9.2 L, Hct 29.5 L, MCV 88.9, MCH 27.7, MCHC 31.2 L, RDW 13.2, RDW Differential 40.6, Plt Count 300, MPV 10.7, Immature Gran % (Auto) 0.200, Neut % (Auto) 56.9, Lymph % (Auto) 32.6, [place] % (Auto) 6.3, Eos % (Auto) 3.3, Baso % (Auto) 0.7, Absolute Neuts (auto) 3.4, Absolute Lymphs (auto) 1.96, Total Counted Not Reportable 11/09/18 06:53: POC Glucose 276 H Current Medications Acetaminophen (Tylenol) 650 mg PO Q6H PRN PRN PRN Reason: Mild Pain (scale 0-3)/T>100.7 Last Admin: 11/08/18 19:27 Dose: 650 mg Al Hydroxide/Mg Hydroxide (Mylanta Ii) 30 ml PO Q6H PRN PRN PRN Reason: Gastric burning [facility]orbic [facility]amin C) [facility] Aspirin (Ecotrin) 81 mg PO DAILY@0800 [facility] Last Admin: 11/09/18 07:25 Dose: Not Given Atorvastatin Calcium (Lipitor) 80 mg PO QHS [facility] Last Admin: 11/08/18 21:26 Dose: 80 mg Clopidogrel Bisulfate (Plavix) 75 mg PO DAILY [facility] Last Admin: 11/09/18 07:26 Dose: Not Given Dextrose (D50w Syringe) 0 gm IV X1 PRN; Protocol PRN Reason: Hypoglycemia Diphenhydramine HCl (Benadryl) 25 mg PO TID PRN PRN PRN Reason: ITCHING Last Admin: 11/09/18 03:27 Dose: 25 mg Docusate Sodium (Colace) 100 mg PO BID PRN PRN Reason: Constipation Enoxaparin Sodium (Lovenox) 40 mg SC DAILY@1000 [facility] Last Admin: 11/09/18 07:26 Dose: Not Given Escitalopram Oxalate (Lexapro) 10 mg PO DAILY [facility] Last Admin: 11/09/18 07:35 Dose: 10 mg Gabapentin (Neurontin) 800 mg PO TIDCM [facility] Last Admin: 11/09/18 07:33 Dose: 800 mg Glucagon () 1 mg IM .X1 PRN PRN Reason: Hypoglycemia Metronidazole (Flagyl) 500 mg in 100 mls @ 100 mls/hr IV Q8 [facility] Last Admin: 11/09/18 05:06 Dose: 100 mls/hr Sodium Chloride () 1,000 mls @ 75 mls/hr IV .[id number] [facility] Last Admin: 11/09/18 01:35 Dose: Not Given Levofloxacin (Levaquin Iv) 750 mg in 150 mls @ 100 mls/hr IV Q24 [facility] Last Admin: 11/08/18 12:58 Dose: 100 mls/hr Vancomycin IV Pharmacy to Dose (1 ea/ Sodium Chloride) 500 mls @ 250 mls/hr IV X1 PRN; Protocol PRN Reason: Rx to Dose Vancomycin HCl 750 mg/ Sodium (Chloride) 265 mls @ 250 mls/hr IV Q12H [facility] Last Admin: 11/09/18 06:05 Dose: 250 mls/hr Insulin Glargine (Lantus (Bkc)) 30 units SC 0800 [facility] Last Admin: 11/09/18 07:25 Dose: Not Given Insulin Human Lispro (Humalog Kwikpen (Bk)) 0 unit SQ ACHS [facility]; Protocol Last Admin: 11/09/18 06:57 Dose: 6 u Insulin Human Lispro (Humalog Kwikpen (Bkc)) 20 unit SC 0800,1200,1700 [facility] Last Admin: 11/09/18 07:25 Dose: Not Given Isosorbide Mononitrate (Imdur) 30 mg PO DAILY [facility] Last Admin: 11/09/18 07:33 Dose: 30 mg Lisinopril (Zestril) 5 mg PO DAILY [facility] Magnesium Hydroxide (Milk Of Magnesia) 30 ml PO DAILY PRN PRN PRN Reason: Constipation Metoprolol Tartrate (Lopressor (Beta Tin)) 12.5 mg PO BID [facility] Last Admin: 11/09/18 07:33 Dose: 12.5 mg Non-Formulary Medication (Magnesium Oxide [Magnesium Oxide]) 400 mg PO BID [facility] Nutritional Formula (Lactose Free) (Glucerna Shake) 120 ml PO TIDCM [facility] Last Admin: 11/09/18 07:25 Dose: Not Given Ondansetron HCl (Zofran) 4 mg IV Q8H PRN PRN PRN Reason: NAUSEA Oxycodone HCl (Oxyir) 5 mg PO Q4H PRN PRN PRN Reason: PAIN Last Admin: 11/09/18 07:38 Dose: 5 mg Pantoprazole Sodium (Protonix) 20 mg PO DAILY [facility] Last Admin: 11/09/18 07:33 Dose: 20 mg Pramipexole Dihydrochloride (Mirapex) 1.5 mg PO BID [facility] Last Admin: 11/09/18 07:35 Dose: 1.5 mg Sodium Chloride () 5 - 15 ml IV UD PRN PRN Reason: SALINE FLUSH Zolpidem Tartrate (Ambien (Generic)) 5 mg PO QHS PRN PRN PRN Reason: INSOMNIA Last Admin: 11/08/18 23:24 Dose: 5 mg Medical Necessity - Tobacco Use Smoking Status: Never smoker Assessment/Plan All Active Problems (Last Reviewed 09/28/18 @ 15:32 by Saravanan Jean Baptiste MD) Chest pain (Acute) NSTEMI (non-ST elevated myocardial infarction) (Resolved) Diabetic foot ulcer associated with type 2 diabetes mellitus (Acute) Patient is a 53-year-old lady with history of diabetes mellitus type 2 with complications including diabetic polyneuropathy as well as diabetic foot infections presented with worsening diabetic foot ulceration with edema and copious discharge 1. Acute diabetic foot infection (plantar surface abscess and early osteomyelitis involving the distal aspect of the fifth metatarsal bone). Patient has been admitted to regular nursing floor antibiotics initiated per protocol with Levaquin and Flagyl as well as vancomycin. Patient apparently has allergies to penicillin. Cultures were sent. MRI of the left foot ordered as below. Consult was placed to podiatry medicine Dr. Allen; Case discussed with him. Also added infectious disease consultation. MRSA screen on admission negative vancomycin discontinued 2. Diabetes mellitus type 2 with complications including diabetic foot infections as well as polyneuropathy. Did continue patient home insulin regimen in addition to Accu-Cheks before meals and at bedtime with sliding scale coverage 3. CAD with previous PCI DARA to mid and proximal LAD in September 2018 4. Hypertension-blood pressure controlled, home medications continued with dose adjustment as needed 5. Dyslipidemia-patient is on statin therapy, continued at home dose 6. Depression with anxiety 7. Restless leg syndrome: Patient is on ropinirole 8. Chronic back pain 9. Diabetic polyneuropathy patient is on gabapentin 10. Obesity with BMI of 30.0 weight loss advised 11. DVT prophylaxis SC Lovenox Clinical Impression(s) from Imaging Studies Lower Extremity MRI 11/08/18 11:49 IMPRESSION: Small fluid collection with wall enhancement at the plantar lateral aspect of the foot suggestive of abscess. Interval development of mild bone edema in the distal aspect of the amputated fifth metatarsal, either reactive bone edema or early osteomyelitis. Arthropathy of the navicular-cuneiform and second through fifth tarsometatarsal joints suggestive of neuropathic arthropathy. Edema in the musculature of the proximal lateral forefoot, suggestive of myositis. Atrophy of the intrinsic muscles of the foot suggestive of peripheral arthropathy. Electronically Signed: Saqib Roberts MD at 16:10 EST Tel , Service support , Code Visit Inpatient E&M: 77448 Subs Hosp L3
[2018-11-09] MEDS: Ondansetron 4 MG/2 ML Vial IV (08:59)
[2018-11-09 09:06] LABS: Bedside Glucose 316 mg/dL (70-110)
[2018-11-09 09:31] LABS: Internal QC Validated? YES +Cl - CLEAR BKGD; Pregnancy, Urine Negative Negative
[2018-11-09] MEDS: 0.9% Normal Saline 1,000 ML 75 ML IV (10:01)
[2018-11-09] MEDS: levoFLOXacin IV 750 MG/150 ML BAG 100 MG IV (10:01)
[2018-11-09] MEDS: Ascorbic Acid 500 MG Tablet PO ×2 (10:01→17:52)
[2018-11-09] MEDS: Magnesium Oxide 400 MG Tablet PO ×2 (10:01→21:03)
[2018-11-09] MEDS: Lisinopril 5 MG Tablet PO (10:01)
--- NOTE | 2018-11-09 10:42 | PCM.HP.ID ---
Problem List (1) Osteomyelitis Status: Acute Reason for Consult: osteo Consulted by: Dr. Allen History of Present Illness: The patient is a 53 year old F with DM neuropathy and past MSSA and GBS infection of L foot in 08/2018 who presented with several weeks of worsening L heel ulcer with drainage, pain, and redness. Pain is mild currently. No fever or chills. Given keflex for one day prior to coming to hospital. MRI showed likely osteo. Seen by podiatry. Surgery planned for I&D. On levaquin and flagyl. Full ROS performed and neg except as noted above. - Medical History Past Medical History (Chronic Problems): Chronic Problems (Last Reviewed 09/28/18 @ 15:32 by Saravanan Jean Baptiste MD) HLD (hyperlipidemia) (Chronic) Neuropathic pain (Chronic) GERD (gastroesophageal reflux disease) (Chronic) Hypomagnesemia (Chronic) Back pain, chronic (Chronic) Depression (Chronic) RLS (restless legs syndrome) (Chronic) Type II diabetes mellitus, uncontrolled (Chronic) Anxiety state (Chronic) Allergies/Adverse Reactions: Allergies oxycodone [From OxyContin] Allergy (Verified 11/08/18 13:15) Shortness of breath Penicillins Allergy (Verified 11/05/18 19:35) Shortness of breath Home Medications: Ambulatory Orders Medication Instructions Recorded Ascorbic Acid [Vitamin C] 500 mg PO BIDCM 09/20/18 Gabapentin [Neurontin] 800 mg PO TIDCM 09/20/18 Insulin Aspart [Novolog Flexpen] 20 units SUBCUT TIDCM 09/20/18 Insulin Glargine [Lantus SoloStar 30 units SUBCUT 0800 09/20/18 Pen] Ropinirole HCl [Requip] 3 mg PO BID 09/20/18 Clopidogrel Bisulfate [Plavix] 75 mg PO DAILY #30 tab 09/22/18 Atorvastatin Calcium [Lipitor] 80 mg PO QHS 09/23/18 Lisinopril [Zestril] 5 mg PO DAILY 09/23/18 Metoprolol Tartrate [Lopressor 12.5 mg PO BID 09/23/18 (beta kunal)] Isosorbide Mononitrate [Imdur] 30 mg PO DAILY #30 tab 09/24/18 escitalopram 10 mg tablet 10 mg PO DAILY 09/28/18 promethazine 25 mg tablet 25 mg PO Q6H PRN 09/28/18 Docusate Sodium [Colace] 100 mg PO BID PRN 11/08/18 Magnesium Oxide 400 mg PO BID 11/08/18 Oxycodone [Oxyir] 5 mg PO Q8H PRN PRN 11/08/18 - Social History SMOKING STATUS:: Never smoker Vital Signs Temp Pulse Resp BP Pulse Ox 97.9 F 74 16 122/50 H 98 11/09/18 07:27 11/09/18 07:33 11/09/18 07:27 11/09/18 07:27 11/09/18 07:27 Oxygen Delivery Method Room Air Weight: 85.8 kg Body Mass Index (BMI) 30.5 Finger Stick Blood Glucose 120 Microbiology Past 72 Hours 11/08/18 12:35 Gram Stain - Final Wound Abcess - Other Laboratory Tests Past 24 Hrs 11/08/18 11/08/18 11/08/18 12:10 12:10 12:10 WBC 7.1 RBC 3.85 L Hgb 10.5 L Hct 33.3 L MCV 86.5 MCH 27.3 MCHC 31.5 L RDW 13.1 RDW Differential 40.7 Plt Count 331 MPV 10.4 Immature Gran % (Auto) 0.000 Neut % (Auto) 71.8 H Lymph % (Auto) 18.9 L [place] % (Auto) 6.5 Eos % (Auto) 2.4 Baso % (Auto) 0.4 Absolute Neuts (auto) 5.1 Absolute Lymphs (auto) 1.34 Total Counted Not Reportable ESR Sodium 141 Potassium 4.5 Chloride 105 Carbon Dioxide 27.0 Anion Gap 9 BUN 20 H Creatinine 1.15 H Estim Creat Clear Calc 52.96 Est GFR (MDRD) Af Amer 63 Est GFR (MDRD) Non-Af 52 L BUN/Creatinine Ratio 17.4 Glucose 226 H Hemoglobin A1c 11.8 H Calcium 8.9 Magnesium 2.2 Total Bilirubin 0.30 AST 12 L ALT 21 Alkaline Phosphatase 105 C-React Prot Ext Range Total Protein 7.3 Albumin 3.1 L Globulin 4.2 Albumin/Globulin Ratio 0.7 L Urine Test S.aureus Protein A PCR MRSA (PCR) 11/08/18 11/08/18 11/09/18 12:35 19:40 05:24 WBC RBC Hgb Hct MCV MCH MCHC RDW RDW Differential Plt Count MPV Immature Gran % (Auto) Neut % (Auto) Lymph % (Auto) [place] % (Auto) Eos % (Auto) Baso % (Auto) Absolute Neuts (auto) Absolute Lymphs (auto) Total Counted ESR Sodium 138 Potassium 4.3 Chloride 107 Carbon Dioxide 21.0 Anion Gap 10 BUN 20 H Creatinine 0.94 Estim Creat Clear Calc 64.79 Est GFR (MDRD) Af Amer 81 Est GFR (MDRD) Non-Af 67 BUN/Creatinine Ratio 21.4 H Glucose 300 H Hemoglobin A1c Calcium 8.2 L Magnesium Total Bilirubin AST ALT Alkaline Phosphatase C-React Prot Ext Range 21.70 H Total Protein Albumin Globulin Albumin/Globulin Ratio Urine Test Negative S.aureus Protein A PCR NEGATIVE MRSA (PCR) Negative 11/09/18 11/09/18 05:24 05:24 WBC 6.0 RBC 3.32 L Hgb 9.2 L Hct 29.5 L MCV 88.9 MCH 27.7 MCHC 31.2 L RDW 13.2 RDW Differential 40.6 Plt Count 300 MPV 10.7 Immature Gran % (Auto) 0.200 Neut % (Auto) 56.9 Lymph % (Auto) 32.6 [place] % (Auto) 6.3 Eos % (Auto) 3.3 Baso % (Auto) 0.7 Absolute Neuts (auto) 3.4 Absolute Lymphs (auto) 1.96 Total Counted Not Reportable ESR 82 H Sodium Potassium Chloride Carbon Dioxide Anion Gap BUN Creatinine Estim Creat Clear Calc Est GFR (MDRD) Af Amer Est GFR (MDRD) Non-Af BUN/Creatinine Ratio Glucose Hemoglobin A1c Calcium Magnesium Total Bilirubin AST ALT Alkaline Phosphatase C-React Prot Ext Range Total Protein Albumin Globulin Albumin/Globulin Ratio Urine Test S.aureus Protein A PCR MRSA (PCR) - Other Studies Radiology: [] reviewed Other Studies: [] Route of nutrition/ use of supplements: [] Nutritional Intake: [] IV Site: [] Tirado Catheter: [] - Physical Exam General: Alert, Oriented x3, Cooperative, No apparent distress HEENT: Atraumatic, PERRLA, EOMI Neck: Supple, No Nodes Lungs: Clear to auscultation, Normal air movement Cardiovascular: Regular rate, Regular Rhythm, No murmurs Abdomen: Soft, Non Tender, Non-Distended Extremities: Edema - mild Skin: Ulcer/ Wound - reviewed photo of L heel ulcer IV Site: Peripheral, without redness Musculoskeletal: No Tenderness to Palpation of Joints or Extremities Neurological: Cranial nerves II-XII grossly intact - Assessment/Plan Antibiotics: [] Assessment/Plan: [] L heel osteo with DM neuropathy - had MSSA and GBS infection of foot 08/2018. Tolerates cephalosporins with no issue. PCN makes her swell up. Staph aureus pcr of wound here negative. Wound cx pending. Will need surgical debridement and then 6 week course of abx. ECF placement planned. On levaquin and flagyl. Will follow cx data. Will follow, thank you, d/w Dr. Allen.
--- NOTE | 2018-11-09 11:07 | CASEMGMT ---
Social Work Note SW attempted to meet with pt to discuss discharge plans. Pt states that she is tired and wants this worker to return later after lunch. Erika Tobar FITNESS CONSULTANT, PEDAL ASSEMBLER
[2018-11-09 12:25] LABS: Bedside Glucose 380 mg/dL (70-110)
--- NOTE | 2018-11-09 14:23 | NURSING ---
pt left for surgery
--- NOTE | 2018-11-09 14:40 | CASEMGMT ---
Social Work Note SW attempted to meet with pt to follow up from discussion earlier. Pt currently off floor. SW will attempt to see pt later today as time permits or tomorrow. Plan: Likely SNF. Physician is requesting pt go to SNF at discharge. SW to meet with pt to confirm discharge plans. Erika Tobar LUBE WORKER, FOOD CRITIC
--- NOTE | 2018-11-09 15:30 | BON_PTH ---
PATIENT: DIONY ROCHA LOC: MS3 U#:[id number] AGE/SX: 53/F ROOM: [facility] RE11/08/[address]: Dr. Rodney Yates MD : [id number] BED: 1 DIS: 11/12/2018 SPEC #: [id number] RECD: 11/10/18 07:15 STATUS: LON REQ #: [id number] ANEL: 11/09/18 15:[address]: Landen Allen DEPT: SURGICAL PATHOLOGY RECD BY: Ge Chairez ENTERED: 11/10/18 09:10 SP TYPE: Bone OTHR DR: MD Dr. Raúl Villela MD Dr. Michael Jack, DPM Dr. Landen Allen, DPM Dr. Kike Tello MD Tissues: A - Bone of foot, NOS B - Bone of foot, NOS Procedures: PAS Fungus (control) Decalcification bone/plaque Special Stain Group I Surgery Specimen Level IV Comments: @ Ordering doctor for DEC edited from to @ by STEVEN at 11/10/18 1030 @ Ordering doctor for SUIII edited from to DR.MTESTR Mia HARRIS at 11/10/18 1030 @ Submitting doctor edited from to @ eden HARRIS at 11/10/18 1030 HEADER OPERATION: Incision and drainage, bone biopsy, foot PRE-OP DIAGNOSIS: Diabetic foot infection, osteomyelitis, ulceration left foot TISSUE SUBMITTED: A - Bone biopsy fifth metatarsal left foot, B - Soft tissue ulceration left foot MICROSCOPIC DIAGNOSIS A. Left foot, fifth metatarsal, biopsy: Reactive and reparative change. No evidence of osteomyelitis. B. Left foot soft tissue at ulceration, biopsy: Granulation with associated fibrinoid material and acute inflammation. Negative for fungal organisms. See comment. AM:aristides 11/15/18 COMMENT B. PASF stain with matched control was used in the evaluation of this case. MICROSCOPIC DESCRIPTION Slides are reviewed. GROSS DESCRIPTION A - Received in fixative is one container labeled with the patient's name and designated bone biopsy fifth metatarsal. The specimen consists of a single elongated fragment of mahajan bone measuring 1.2 x 0.2 x 0.1 cm. The specimen is totally submitted in one cassette after decalcification. B - Received in fixative is one container labeled with the patient's name and designated soft tissue ulceration. The specimen consists of a single irregular fragment of mahajan tissue measuring 1 x 1 x 0.8 cm. The specimen is bisected and totally submitted in one cassette. / VANDA:aristides 11/10/18 TC:2 CPT: 31945 x2, 18524, 35923
[2018-11-09] MEDS: THROMBIN (RECOMBINANT) 20,000 UNIT VIAL 20000 UNIT TOPICAL (15:56)
--- NOTE | 2018-11-09 16:10 | PCA ---
pt off floor
--- NOTE | 2018-11-09 16:48 | PCM.IMDPSTOP ---
Immediate Post-Op Note Date of Procedure: 11/09/18 Primary Surgeon/Physician: Landen Allen DPM creping machine operator: None Pre-Operative Diagnosis: diabetic foot ulceration. osteomyelitis left foot Post-Operative Diagnosis: diabetic foot ulceration. osteomyelitis Surgery/Procedure Performed:: Incision and drainage of left foot ulceration with bone biopsy Description of Surgical Findings:: Prominent nonviable hypergranular tissue with small collection of serous drainage. Estimated Blood Loss: 40 ml Specimen's removed: 5th metatarsal biopsy for pathology and micro. soft-tissue ulceration biopsy Type of Anesthesia:: General ASA Class: ASA3 Severe Disease
--- NOTE | 2018-11-09 16:52 | OP.PN_ITS ---
Immediate Post-Op Note Date of Procedure: 11/09/18 Primary Surgeon/Physician: Landen Allen DPM petrol tanker driver: None Pre-Operative Diagnosis: diabetic foot ulceration. osteomyelitis left foot Post-Operative Diagnosis: diabetic foot ulceration. osteomyelitis Surgery/Procedure Performed:: Incision and drainage of left foot ulceration with bone biopsy Description of Surgical Findings:: Prominent nonviable hypergranular tissue with small collection of serous drainage. Estimated Blood Loss: 40 ml Specimen's removed: 5th metatarsal biopsy for pathology and micro. soft-tissue ulceration biopsy Type of Anesthesia:: General ASA Class: ASA3 Severe Disease
--- NOTE | 2018-11-09 17:30 | OP.PCM_ITS ---
Report of Operation Date of Procedure: 11/09/18 Pre-Operative Diagnosis: diabetic foot ulceration. osteomyelitis left foot Post-Operative Diagnosis: diabetic foot ulceration. osteomyelitis Surgery/Procedure Performed:: Incision and drainage of left foot ulceration with bone biopsy Description of Surgical Findings:: Prominent nonviable hypergranular tissue with small collection of serous drainage. Type of Anesthesia:: General Specimen's removed: 5th metatarsal biopsy for pathology and micro. soft-tissue ulceration biopsy Estimated Blood Loss (mL): 40 ml Description of Procedure: Patient is a 53 year old female with diabetes and noncompliant behavior. she has chronic ulceration of left foot that has been present since late fall 2017. She was admitted here for ulceration and underwent I&D and bone biopsy. She was found to have no evidence of osteomyelitis in August and she was discharged to TCU with wound vac therapy. Over several weeks, she was later transitioned into peg assisted offloading boot and crutches. She was progressing well until 2 weeks ago when she started walking without the peg assisted offloading boot. Subsequently, her ulceration became larger and she was noticing significant amounts of drainage. She presented to my clinic this past Tuesday where her foot was examined. Her foot did not show any signs of drainage or redness but due to increased size of wound and complaint of drainage, a culture was performed of tissue. gram positive cocci and strep was confirmed on culture. I originally planned to have her receive home care/wound vac therapy but due to cultures, I recommended admission to hospital. she was directly admitted to hospital yesterday and MRI was obtained. MRI shows reactive changes of 5th metatarsal concerning for osteomyelitis. There is abnormal signal on t2 about 9mm concerning for abscess. I discussed these mri findings with patient. I informed her that I suspect the bone is likely contributing to slow wound healing and I proposed I&D with resection of hypertrophic bone. It is my opinion that if this bone was not present, she may be more apt to heal this w ound if she were to become more compliant. despite my recommendations, she is not agreeable to further bone resection. She is only agreeable to I&D and biopsy. I discussed my concerns that if this bone is not resected, she may still have difficulty healing. she understands this. I did place consult for 2nd opinion but at time of surgery, this had not been completed. I discussed proceeding without 2nd opinion. She is fine with this so long as I do not cut any additional bone out. I discussed risks of this procedure not limited to infection, pain, swelling, bleeding, need for wound vac, need for repeat procedure to remove bone, need for IV antibiotics, possible recurrent abscess until this wound heals, loss of leg, loss of life. Patient informed that the fluid collection on mri could be very small abscess that is leading to infection and/or it could be related to scar tissue. Given the recent drainage, patient agreeable to I&D with biopsy. She will not consent for further bone resection. all risks were discussed with patient. patient consents to proceed. Patient understands plan for post-op will be wound vac on pod#1. she will need wound vac for prolonged duration. She will likely transition to rehab facility once cultures finalized. she will need wound vac changes at 125 mm hg continuous changed on //. Once wound becomes superficial, will discuss casting. Patient was transferred from pre-op holding area and placed on operating room table in supine position. she was identified by name and procedure. The left lower extremity was prepped and draped in usual aseptic technique. Injection was then given to left ankle with 5 cc of lidocaine plain. time out was performed. Attention was then directed to the plantar left foot where there was large ulceration with mix of hypergranular tissue and fibrotic base. there was undermining along plantar medial ulcer. All nonviable hypergranular tissue was debrided. once the plantar hypergranular tissue was expressed, small collection of serous drainage was removed. I examined the ulceration in all planes, that is distally, proximally, medially and laterally. I incised the distal and proximal ulceration to assure no remaining fluid. It was deemed intra-op that any fluid present had been completely removed. I then debrided prominent scar tissue/hypergranular tissue. There was some evidence of bursae that was sent for pathology Cautery was performed with bovie as needed. The wound was then irrigated with normal saline. Approximately 5500 ml was used for irrigation. topical thrombin and gel foam was then used to aide in further hemostasis. Attention was then directed to the dorsal aspect of left foot. using xray, the hypertrophic bone was idenitified. a small 1 mm incision was performed. a jamsheedy needle was used to obtain biopsy of 5th metatarsal. The bone was very soft. this was sent for pathology and micro. AFter obtaining biopsy, the wound was irrigated and closed with 2-0 prolene. the proximal and distal ulceration was then closed with prolene. wound was measured to plantar left foot. wound measured 3 cm x 2 cm x 1 cm depth. there is undermining along medial and lateral aspect of wound. The wound is in direct proximity to hypertrophic bone that this patient will not consent to resection. wound was dressed with adaptic, 4x4, alison, abd and brando patient was awakened and found to be in stable condition. she will be admitted to floor. will start wound vac on Tuesday. ID following patient and will plan for antibiotics at discharge.
[2018-11-09 17:50] LABS: Bedside Glucose 307 mg/dL (70-110)
[2018-11-09] MEDS: metroNIDAZOLE 500 MG Tablet PO ×2 (17:52→21:04)
[2018-11-09] MEDS: Insulin Lispro 100 UNIT/ML INSULN.PEN 20 UNIT SC (17:53)
[2018-11-09] MEDS: Glucerna Shake 120 ML LIQUID PO (17:55)
--- NOTE | 2018-11-09 19:04 | PCA ---
pt off floor
[2018-11-09] MEDS: Atorvastatin Calcium 80 MG Tablet PO (21:04)
[2018-11-09 21:45] LABS: Bedside Glucose 280 mg/dL (70-110)
[2018-11-10] VITALS (7 sets, daily range): BP systolic 95–141; BP diastolic 40–72; PULSE 73–84; RESP 14–16; TEMP 36.6–37.3; O2SAT 93–99
[2018-11-10] MEDS: 0.9% Normal Saline 1,000 ML 75 ML IV (04:59)
[2018-11-10 06:09] LABS: Anion Gap 11 (5-15); BUN 16 mg/dL (7-18); BUN/Creat Ratio 18.6 RATIO (10-20); Calcium,Total 8.3 mg/dL (8.5-10.1); Chloride 105 mmol/L (98-107); Creatinine, Serum 0.86 mg/dL (0.55-1.02); EST Glomerular Filtration Rate 73 mL/min (>60); Est Glom Filt Rate - Afr Amer 88 mL/min (>60); Estimated Creatinine Clearance 70.82 ml/min; Glucose 259 mg/dL (74-106); Potassium 4.3 mmol/L (3.5-5.1); Sodium Level 141 mmol/L (136-145)
[2018-11-10 06:13] LABS: Vancomycin, Trough Level 6.5 ug/mL (5.0-15.0)
[2018-11-10] MEDS: metroNIDAZOLE 500 MG Tablet PO ×3 (06:30→22:20)
[2018-11-10] MEDS: Insulin Lispro 100 UNIT/ML INSULN.PEN SQ ×4 (06:36→22:24)
--- NOTE | 2018-11-10 07:16 | PCM.PN.SRG ---
Patient Problems: Active and Suspected Problems (Last Reviewed 09/28/18 @ 15:32 by Saravanan Jean Baptiste MD) Osteomyelitis (Acute) Subjective: Patient seen at bedside this morning s/p I&D of left foot with bone biopsy. she denies n/v/f/c. She has no pain to left foot. she is tolerating antibiotics nicely. Objective: Patient is alert and orientated x 3. she does not appear to be in any distress left foot with post-op dressing intact. minimal strike thru. left foot dressing removed. there is full thickness ulceration, about 3 cm x 2 cm x 1 cm depth. there is no purulence. there is no active bleeding. wound appears granular without necrosis. there is no redness present to left foot. no calf pain present to left lower extremity. no ulceration present to right foot - Physical Exam Vital Signs Temp Pulse Resp BP Pulse Ox 98.1 F 73 16 95/46 L 93 11/10/18 02:00 11/10/18 02:00 11/10/18 02:00 11/10/18 02:00 11/10/18 02:00 Oxygen Delivery Method Room Air Weight: 85.8 kg Body Mass Index (BMI) 30.5 Finger Stick Blood Glucose 120 Intake and Output for Last 24 Hours 11/08/18 11/09/18 11/10/18 23:59 23:59 23:59 Intake Total 625 / 625 4402 / 4402 814 / 814 Output Total 200 / 200 Balance 625 / 625 4202 / 4202 814 / 814 Microbiology Past 72 Hours 11/08/18 12:35 Gram Stain - Final Wound Abcess - Other Wound Culture - Preliminary Gram positive organism Laboratory Tests Past 24 Hrs 11/08/18 11/10/18 11/10/18 19:40 05:28 05:28 Sodium 141 Potassium 4.3 Chloride 105 Carbon Dioxide 25.0 Anion Gap 11 BUN 16 Creatinine 0.86 Estim Creat Clear Calc 70.82 Est GFR (MDRD) Af Amer 88 Est GFR (MDRD) Non-Af 73 BUN/Creatinine Ratio 18.6 Glucose 259 H Calcium 8.3 L Urine Test Negative Vancomycin Trough 6.5 POC Glucose 11/09/18 11/09/18 11/09/18 21:41 17:34 12:05 POC Glucose 280 H 307 H 380 H 11/09/18 08:57 POC Glucose 316 H Medical Necessity - Tobacco Use Smoking Status: Never smoker Assessment/Plan All Active Problems (Last Reviewed 09/28/18 @ 15:32 by Saravanan Jean Baptiste MD) Chest pain (Acute) Osteomyelitis (Acute) NSTEMI (non-ST elevated myocardial infarction) (Resolved) Diabetic foot ulcer associated with type 2 diabetes mellitus (Acute) Patient was examined and bedside. she is pod #1 s/p I&D with bone biopsy. I discussed my intra-op findings with patient. I am very concerned that the remaining bone of 5th metatarsal is contributing to this ulceration and I do believe that further resection would help to resolve this ulceration. Unfortunately, patient will not consent for further bone resection. In addition, the bone was very soft intra-op so I suspect the reactive changes on MRI are very concerning for osteomyelitis. her tissue culture from [facility] is growing staph aureus and group b strep. she is on antibiotics and followed by ID. I have discussed findings with ID and I would consider IV antibiotics at discharge. today, the wound was irrigated with 1000 cc of normal saline. no active drainage or purulence is noted. I am going to have nursing staff apply wound vac set for 125 mm hg continuous. this can be changed m,w,f. Will need adaptic and black foam. Will continue with antibiotics per ID. I will be away this weekend so I will consult Dr. perry to round on patient over weekend. there is no need for dressing change unless conditions dictate change. I will see her again tuesday afternoon. My plan for her is to discharge to rehab with wound vac changes mwf as outlined above. I strongly advise her to remain in rehab until this wound is either healed or almost healed. she has no way of caring for herself at home which is one reason this ulceration is not healing. Patient stable today.
[2018-11-10 07:21] LABS: Bedside Glucose 249 mg/dL (70-110)
[2018-11-10] MEDS: Aspirin E.C. 81 MG Tablet PO (08:01)
[2018-11-10] MEDS: Ascorbic Acid 500 MG Tablet PO ×2 (08:01→17:05)
[2018-11-10] MEDS: Clopidogrel Bisulfate 75 MG Tablet PO (08:02)
[2018-11-10] MEDS: Pantoprazole Sodium 20 MG Tablet PO (08:02)
[2018-11-10] MEDS: Pramipexole Di-HCl 0.5 MG Tablet 1.5 MG PO ×2 (08:03→22:21)
[2018-11-10] MEDS: Gabapentin 800 MG Tablet PO ×3 (08:07→17:05)
[2018-11-10] MEDS: Ondansetron 4 MG/2 ML Vial IV (08:07)
[2018-11-10] MEDS: Escitalopram Oxalate 10 MG Tablet PO (08:07)
[2018-11-10] MEDS: oxyCODONE 5 MG Tablet PO ×2 (08:07→22:19)
[2018-11-10] MEDS: Isosorbide Mononitrate 30 MG Tablet PO (08:11)
[2018-11-10] MEDS: Enoxaparin 40 MG/0.4 ML Syringe SC (08:11)
[2018-11-10] MEDS: Metoprolol Tartrate 25 MG Tablet 12.5 MG PO ×2 (08:11→22:22)
[2018-11-10] MEDS: Magnesium Oxide 400 MG Tablet PO ×2 (08:12→22:21)
[2018-11-10] MEDS: Lisinopril 5 MG Tablet PO (08:12)
[2018-11-10] MEDS: Glucerna Shake 120 ML LIQUID PO ×3 (08:13→17:06)
[2018-11-10] MEDS: Insulin Lispro 100 UNIT/ML INSULN.PEN 20 UNIT SC ×2 (08:16→17:05)
--- NOTE | 2018-11-10 08:42 | PN_ITS ---
Patient Problems: Active and Suspected Problems (Last Reviewed 09/28/18 @ 15:32 by Saravanan Jean Baptiste MD) Osteomyelitis (Acute) Subjective: Patient underwent incision and drainage of left foot ulceration with bone biopsy 11/09/2018. Her wound culture so far positive for gram-positive organisms final identification and sensitivities pending. Patient blood glucose controlled not optimal her insulin dose adjusted Objective: GENERAL: cooperative HEENT: Atraumatic; moist oral mucosa EYES; Anicteric, Normal Conjunctiva NECK; supple, normal thyroid, no distended JVD. RESPIRATORY: Diminished to auscultation bilaterally, CARDIOVASCULAR: Regular S1 S2, no audible murmurs GI: soft, non-tender, normoactive bowel sounds, : No Renal angle tenderness; EXTREMITIES: Left foot in surgical dressing MUSCULOSKELETAL: No Joint Tenderness; no muscle waisting NEURO: Awake; no lateralizing signs. SKIN: scratch hubbard on both upper and lower extremities in addition to trunk PSYCH; flat affect Vitals/I&O's: Vital Signs Temp Pulse Resp BP Pulse Ox 98.1 F 77 16 124/63 H 99 11/10/18 08:20 11/10/18 08:20 11/10/18 08:20 11/10/18 08:20 11/10/18 08:20 Oxygen Delivery Method Room Air Weight: 87.997 kg Body Mass Index (BMI) 30.5 Finger Stick Blood Glucose 120 Intake and Output for Last 24 Hours 11/08/18 11/09/18 11/10/18 23:59 23:59 23:59 Intake Total 625 / 625 4402 / 4402 814 / 814 Output Total 200 / 200 Balance 625 / 625 4202 / 4202 814 / 814 Microbiology Past 72 Hours 11/08/18 12:35 Wound Abcess - Other Gram Stain - Final 11/08/18 12:35 Wound Abcess - Other Wound Culture - Preliminary Gram positive organism 11/08/18 12:35 Wound Abcess - Other Anaerobic Culture - Preliminary Checking for anaerobes, further studies to follow. Laboratory Results 11/08/18 19:40: Urine Test Negative 11/09/18 08:57: POC Glucose 316 H 11/09/18 12:05: POC Glucose 380 H 11/09/18 17:34: POC Glucose 307 H 11/09/18 21:41: POC Glucose 280 H 11/10/18 05:28: Sodium 141, Potassium 4.3, Chloride 105, Carbon Dioxide 25.0, Anion Gap 11, BUN 16, Creatinine 0.86, Estim Creat Clear Calc 70.82, Est GFR (MDRD) Af Amer 88, Est GFR (MDRD) Non-Af 73, BUN/Creatinine Ratio 18.6, Glucose 259 H, Calcium 8.3 L 11/10/18 05:28: Vancomycin Trough 6.5 11/10/18 06:35: POC Glucose 249 H Current Medications Acetaminophen (Tylenol) 650 mg PO Q6H PRN PRN PRN Reason: Mild Pain (scale 0-3)/T>100.7 Last Admin: 11/08/18 19:27 Dose: 650 mg Al Hydroxide/Mg Hydroxide (Mylanta Ii) 30 ml PO Q6H PRN PRN PRN Reason: Gastric burning Ascorbic Acid (Vitamin C) 500 mg PO BIDCM [facility] Last Admin: 11/10/18 08:01 Dose: 500 mg Aspirin (Ecotrin) 81 mg PO DAILY@0800 [facility] Last Admin: 11/10/18 08:01 Dose: 81 mg Atorvastatin Calcium (Lipitor) 80 mg PO QHS [facility] Last Admin: 11/09/18 21:04 Dose: 80 mg Clopidogrel Bisulfate (Plavix) 75 mg PO DAILY [facility] Last Admin: 11/10/18 08:02 Dose: 75 mg Dextrose (D50w Syringe) 0 gm IV X1 PRN; Protocol PRN Reason: Hypoglycemia Diphenhydramine HCl (Benadryl) 25 mg PO TID PRN PRN PRN Reason: ITCHING Last Admin: 11/09/18 03:27 Dose: 25 mg Docusate Sodium (Colace) 100 mg PO BID PRN PRN Reason: Constipation Enoxaparin Sodium (Lovenox) 40 mg SC DAILY@1000 [facility] Last Admin: 11/10/18 08:11 Dose: 40 mg Escitalopram Oxalate (Lexapro) 10 mg PO DAILY [facility] Last Admin: 11/10/18 08:07 Dose: 10 mg Gabapentin (Neurontin) 800 mg PO TIDCM [facility] Last Admin: 11/10/18 08:07 Dose: 800 mg Glucagon () 1 mg IM .X1 PRN PRN Reason: Hypoglycemia Levofloxacin (Levaquin Iv) 750 mg in 150 mls @ 100 mls/hr IV Q24 [facility] Last Admin: 11/09/18 10:01 Dose: 100 mls/hr Insulin Glargine (Lantus (Bk)) 30 units SC 0800 [facility] Last Admin: 11/10/18 08:10 Dose: 30 u Insulin Human Lispro (Humalog Kwikpen (Bk)) 0 unit SQ ACHS [facility]; Protocol Last Admin: 11/10/18 06:36 Dose: 4 u Insulin Human Lispro (Humalog Kwikpen ([facility])) 20 unit SC 0800,1200,1700 [facility] Last Admin: 11/10/18 08:16 Dose: 20 u Isosorbide Mononitrate (Imdur) 30 mg PO DAILY [facility] Last Admin: 11/10/18 08:11 Dose: 30 mg Lisinopril (Zestril) 5 mg PO DAILY [facility] Last Admin: 11/10/18 08:12 Dose: 5 mg Magnesium Hydroxide (Milk Of Magnesia) 30 ml PO DAILY PRN PRN PRN Reason: Constipation Magnesium Oxide (Mag-Ox 400) 400 mg PO BID [facility] Last Admin: 11/10/18 08:12 Dose: 400 mg Metoprolol Tartrate (Lopressor (Beta Tin)) 12.5 mg PO BID [facility] Last Admin: 11/10/18 08:11 Dose: 12.5 mg Metronidazole (Flagyl) 500 mg PO TID [facility] Last Admin: 11/10/18 06:30 Dose: 500 mg Nutritional Formula (Lactose Free) (Glucerna Shake) 120 ml PO TIDCM [facility] Last Admin: 11/10/18 08:13 Dose: 120 ml Ondansetron HCl (Zofran) 4 mg IV Q8H PRN PRN PRN Reason: NAUSEA Last Admin: 11/10/18 08:07 Dose: 4 mg Oxycodone HCl (Oxyir) 5 mg PO Q4H PRN PRN PRN Reason: PAIN Last Admin: 11/10/18 08:07 Dose: 5 mg Pantoprazole Sodium (Protonix) 20 mg PO DAILY [facility] Last Admin: 11/10/18 08:02 Dose: 20 mg Pramipexole Dihydrochloride (Mirapex) 1.5 mg PO BID [facility] Last Admin: 11/10/18 08:03 Dose: 1.5 mg Sodium Chloride () 5 - 15 ml IV UD PRN PRN Reason: SALINE FLUSH Zolpidem Tartrate (Ambien (Generic)) 5 mg PO QHS PRN PRN PRN Reason: INSOMNIA Last Admin: 11/08/18 23:24 Dose: 5 mg Medical Necessity - Tobacco Use Smoking Status: Never smoker Assessment/Plan All Active Problems (Last Reviewed 09/28/18 @ 15:32 by Saravanan Jean Baptiste MD) Chest pain (Acute) Osteomyelitis (Acute) NSTEMI (non-ST elevated myocardial infarction) (Resolved) Diabetic foot ulcer associated with type 2 diabetes mellitus (Acute) Patient is a 53-year-old lady with history of diabetes mellitus type 2 with complications including diabetic polyneuropathy as well as diabetic foot infections presented with worsening diabetic foot ulceration with edema and copious discharge 1. Acute diabetic foot infection (plantar surface abscess and early osteomyelitis involving the distal aspect of the fifth metatarsal bone). Patient has been admitted to regular nursing floor antibiotics initiated per protocol with Levaquin and Flagyl as well as vancomycin. Patient apparently has allergies to penicillin. Cultures were sent. MRI of the left foot ordered as below. Consult was placed to podiatry medicine Dr. Allen; Case discussed with him. Also added infectious disease consultation. MRSA screen on admission negative vancomycin discontinued. Patient underwent incision and drainage of left foot ulceration with bone biopsy 11/09/2018. Her wound culture so far positive for gram-positive organisms final identification and sensitivities pending. Patient was also seen in consultation by Dr. Tello his notes and recommendations reviewed. 2. Diabetes mellitus type 2 with complications including diabetic foot infecti ons as well as polyneuropathy. Did continue patient home insulin regimen with adjustment of doses as needed in addition to Accu-Cheks before meals and at bedtime with sliding scale coverage 3. CAD with previous PCI DARA to mid and proximal LAD in September 2018 4. Hypertension-blood pressure controlled, home medications continued with dose adjustment as needed 5. Dyslipidemia-patient is on statin therapy, continued at home dose 6. Depression with anxiety 7. Restless leg syndrome: Patient is on ropinirole 8. Chronic back pain 9. Diabetic polyneuropathy patient is on gabapentin 10. Obesity with BMI of 30.0 weight loss advised 11. DVT prophylaxis SC Lovenox Code Visit Inpatient E&M: 37241 Subs Hosp L3
[2018-11-10] MEDS: levoFLOXacin IV 750 MG/150 ML BAG 100 MG IV (09:40)
--- NOTE | 2018-11-10 10:59 | NURSING ---
wound photo: Left Dorsal Foot
--- NOTE | 2018-11-10 11:00 | CASEMGMT ---
Social Work Note SW met with pt to confirm discharge plans. Pt states that she would like a referral sent to [facility]. SW explained that this worker will send referral and will check on bed availability. Pt states understanding. SW received consult from physician for Mental Health. SW asked pt about Mental Health. Pt states that she has a history of anxiety and depression and it has gotten worse lately. Pt state that she misses her who lives in [place]. Pt states that she met her online and she has been to [place] to visit but he hasn't been to [facility]. Pt states that her was trying to come to [facility] but his visa didn't go through. Pt states that she had an attorney general to help her in regards to getting her to [facility] but her attorney general stopped seeing her as she had too many health complications. Pt states it has been 7 months since she has seen her . Pt states that her daughter recently moved back in with her and is able to help her but not all the time as her daughter works and her daughter as her own anxiety. Pt states that other stress includes her health. Pt states that her foot started to go bad at the end of last year and then she had a heart attack and now she is back with foot problems again. Pt became tearful throughout conversation. SW offered support to pt. Pt states that she used to go to counseling a long time ago. Pt denied any current Suicidal/Homicidal thoughts/plans/ideations. LUCRETIA educated pt to at [facility] and offered to make referral for pt. Pt agreeable to referral. LUCRETIA placed a call to Diony at [facility] who states he will see pt today. LUCRETIA placed a call to Muna at [facility] and provided referral. SW placed a call to Muna and left her a message informing her of referral. Plan: [facility] pending acceptance Erika Tobar DELIVERY CLERK, FREIGHT CAR LOADER
[2018-11-10 11:11] LABS: Bedside Glucose 210 mg/dL (70-110)
[2018-11-10] MEDS: Mag Hydrox/Al Hydrox/Simeth 30 ML UDC PO (12:26)
--- NOTE | 2018-11-10 12:27 | PN.ID_ITS ---
Patient Problems: Active and Suspected Problems (Last Reviewed 09/28/18 @ 15:32 by Saravanan Jean Baptiste MD) Osteomyelitis (Acute) Subjective: Feeling ok, some foot pain, no fever. - Physical Exam General: Alert, Cooperative, No apparent distress Lungs: Clear to auscultation, Normal air movement Cardiovascular: Regular rate, Regular Rhythm Abdomen: Soft, Non Tender, Non-Distended Skin: Ulcer/ Wound - wound vac in place Vital Signs Temp Pulse Resp BP Pulse Ox 98 F 75 16 114/66 98 11/10/18 11:15 11/10/18 11:15 11/10/18 11:15 11/10/18 11:15 11/10/18 11:15 Oxygen Delivery Method Room Air Weight: 87.997 kg Body Mass Index (BMI) 30.5 Finger Stick Blood Glucose 120 Intake and Output for Last 24 Hours 11/08/18 11/09/18 11/10/18 23:59 23:59 23:59 Intake Total 625 / 625 4402 / 4402 1064 / 1064 Output Total 200 / 200 Balance 625 / 625 4202 / 4202 1064 / 1064 Microbiology Past 72 Hours 11/09/18 16:32 Gram Stain - Final Biopsy - Bone 11/08/18 12:35 Gram Stain - Final Wound Abcess - Other Wound Culture - Preliminary Gram positive organism Anaerobic Culture - Preliminary Checking for anaerobes, further studies to follow. Laboratory Tests Past 24 Hrs 11/10/18 11/10/18 05:28 05:28 Sodium 141 Potassium 4.3 Chloride 105 Carbon Dioxide 25.0 Anion Gap 11 BUN 16 Creatinine 0.86 Estim Creat Clear Calc 70.82 Est GFR (MDRD) Af Amer 88 Est GFR (MDRD) Non-Af 73 BUN/Creatinine Ratio 18.6 Glucose 259 H Calcium 8.3 L Vancomycin Trough 6.5 POC Glucose 11/10/18 11/10/18 11/09/18 11:08 06:35 21:41 POC Glucose 210 H 249 H 280 H 11/09/18 11/09/18 17:34 12:05 POC Glucose 307 H 380 H Medical Necessity - Tobacco Use Smoking Status: Never smoker Route of nutrition/ use of supplements: [] Nutritional Intake: [] IV Site: [] Tirado Catheter: [] - Assessment/Plan Antibiotics: [] Assessment/Plan: [] L heel osteo with DM neuropathy - had MSSA and GBS infection of foot 08/2018. Tolerates cephalosporins with no issue. PCN makes her swell up. Staph aureus pcr of wound here negative. Wound cx with GP organism. Taken for debridement and wound vac 11/09/[address] Allen. Will order picc and plan on 6 weeks of iv ceftriaxone and po flagyl. Weekly bmp, cbc, and esr while on iv abx. Will follow, d/w insurance case manager, rx written, ID follow-up in 2-3 weeks.
--- NOTE | 2018-11-10 12:32 | BH.NOTE ---
BH: Inpatient Note - Notes Behavioral Health Inpatient Note: 11/10/18 12:32 Referral to [facility] from social work due to depression, stressors, and anxiety. Met with pt in her room. Cooperative. Denies active suicidal ideations, plan, or intent. No hx of attempts. Reports stressors which include her medical issues. Reports that her foot was improving however she began to walk on it sooner and ended up re-injuring herself. Reports that she is looking at 6 additional weeks of rehab. Additional stressors include some conflict with adult children and who lives [place]. Pt reports that she had recently spent 9 months with in [place]. She is struggling with making a decisions to move to be with or stay in [place] with her adult children. Difficulty with obtaining 's visa. Reports moderate depression and anxiety. Endorses crying spells, lack of energy, increased sleep, hopeless, and some passive thoughts of . Currently on Lexapro through PCP Dr. Eric, however sees little benefit. We discussed out mental health treatment. Reports positive experience with therapist Emani at [facility] 5 years ago however was discharged due to a no-show. We discussed how this does not mean she cannot call back and re-engage. Pt agreeable. Current plan is for pt to enter rehab facility for the next 6 weeks. She was given referrals to MH providers and [facility] programs and encouraged to follow up.
--- NOTE | 2018-11-10 15:30 | CASEMGMT ---
Social Work Note SW received call from Muna at [facility] stating she is able to accept pt and pt is able to discharge to [facility] over the weekend. LUCRETIA updated pt of this. [facility]000 completed in [place]. Original on pt's chart. Green sheet on chart. Plan: [facility] once medically cleared Erika Tobar PLASTERER JOURNEYMAN, FREIGHT INSPECTOR
[2018-11-10 15:56] LABS: Bedside Glucose 173 mg/dL (70-110)
--- NOTE | 2018-11-10 17:24 | NURSING ---
called [facility] to get time for picc line placement. [facility] had not given a time for placement yet. they will call back with time.
--- NOTE | 2018-11-10 20:32 | NURSING ---
IV access called asking if PICC or midline to be placed. I read Dr. Tello report which stated PICC placement with 6w ceftriaxone. The IV access, Zach, reports he will be here in 30-45m for placement.
--- NOTE | 2018-11-10 22:05 | NURSING ---
coil rewind machine operator completed procedure
[2018-11-10] MEDS: Zolpidem Tartrate 5 MG Tablet PO (22:19)
[2018-11-10] MEDS: Docusate Sodium 100 MG Capsule PO (22:20)
[2018-11-10] MEDS: Atorvastatin Calcium 80 MG Tablet PO (22:21)
[2018-11-10 22:45] LABS: Bedside Glucose 305 mg/dL (70-110)
[2018-11-11] VITALS (7 sets, daily range): BP systolic 124–149; BP diastolic 65–88; PULSE 70–80; RESP 16–18; TEMP 36.6–37.1; O2SAT 98–99
[2018-11-11] MEDS: 0.9% NaCl Peripheral Flush Adult/Peds IV ×5 (05:57→21:22)
[2018-11-11] MEDS: metroNIDAZOLE 500 MG Tablet PO ×3 (05:57→22:34)
[2018-11-11 07:27] LABS: Anion Gap 10 (5-15); BUN 13 mg/dL (7-18); BUN/Creat Ratio 14.6 RATIO (10-20); Calcium,Total 8.5 mg/dL (8.5-10.1); Chloride 105 mmol/L (98-107); Creatinine, Serum 0.89 mg/dL (0.55-1.02); EST Glomerular Filtration Rate 71 mL/min (>60); Est Glom Filt Rate - Afr Amer 85 mL/min (>60); Estimated Creatinine Clearance 68.43 ml/min; Glucose 263 mg/dL (74-106); Sodium Level 141 mmol/L (136-145)
--- NOTE | 2018-11-11 07:27 | PCM.PN.HOSP ---
Patient Problems: Active and Suspected Problems (Last Reviewed 09/28/18 @ 15:32 by Saravanan Jean Baptiste MD) Osteomyelitis (Acute) Subjective: Patient seen had a PICC line placed the day prior plan is for patient to be [facility] pending insurance precertification Objective: GENERAL: cooperative HEENT: Atraumatic; moist oral mucosa EYES; Anicteric, Normal Conjunctiva NECK; supple, normal thyroid, no distended JVD. RESPIRATORY: Diminished to auscultation bilaterally, CARDIOVASCULAR: Regular S1 S2, no audible murmurs GI: soft, non-tender, normoactive bowel sounds, : No Renal angle tenderness; EXTREMITIES: Left foot in surgical dressing MUSCULOSKELETAL: No Joint Tenderness; no muscle waisting NEURO: Awake; no lateralizing signs. SKIN: scratch hubbard on both upper and lower extremities in addition to trunk PSYCH; flat affect Vitals/I&O's: Vital Signs Temp Pulse Resp BP Pulse Ox 98 F 72 16 136/70 H 98 11/11/18 02:46 11/11/18 02:46 11/11/18 02:46 11/11/18 02:46 11/11/18 02:46 Oxygen Delivery Method Room Air Weight: 87.997 kg Body Mass Index (BMI) 30.5 Finger Stick Blood Glucose 120 Intake and Output for Last 24 Hours 11/09/18 11/10/18 11/11/18 23:59 23:59 23:59 Intake Total 4402 / 4402 1364 / 1364 1190 / 1190 Output Total 200 / 200 Balance 4202 / 4202 1364 / 1364 1190 / 1190 Microbiology Past 72 Hours 11/09/18 16:32 Biopsy - Bone Gram Stain - Final 11/08/18 12:35 Wound Abcess - Other Gram Stain - Final 11/08/18 12:35 Wound Abcess - Other Wound Culture - Preliminary Gram positive organism 11/08/18 12:35 Wound Abcess - Other Anaerobic Culture - Preliminary Checking for anaerobes, further studies to follow. Laboratory Results 11/10/18 11:08: POC Glucose 210 H 11/10/18 15:49: POC Glucose 173 H 11/10/18 22:18: POC Glucose 305 H 11/11/18 05:55: Sodium 141, Potassium 4.0, Chloride 105, Carbon Dioxide 26.0, Anion Gap 10, BUN 13, Creatinine 0.89, Estim Creat Clear Calc 68.43, Est GFR (MDRD) Af Amer 85, Est GFR (MDRD) Non-Af 71, BUN/Creatinine Ratio 14.6, Glucose 263 H, Calcium 8.5 Current Medications Acetaminophen (Tylenol) 650 mg PO Q6H PRN PRN PRN Reason: Mild Pain (scale 0-3)/T>100.7 Last Admin: 11/08/18 19:27 Dose: 650 mg Al Hydroxide/Mg Hydroxide (Mylanta Ii) 30 ml PO Q6H PRN PRN PRN Reason: Gastric burning Last Admin: 11/10/18 12:26 Dose: 30 ml Ascorbic Acid (Vitamin C) 500 mg PO BIDCM [facility] Last Admin: 11/10/18 17:05 Dose: 500 mg Aspirin (Ecotrin) 81 mg PO DAILY@0800 [facility] Last Admin: 11/10/18 08:01 Dose: 81 mg Atorvastatin Calcium (Lipitor) 80 mg PO QHS [facility] Last Admin: 11/10/18 22:21 Dose: 80 mg Clopidogrel Bisulfate (Plavix) 75 mg PO DAILY [facility] Last Admin: 11/10/18 08:02 Dose: 75 mg Dextrose (D50w Syringe) 0 gm IV X1 PRN; Protocol PRN Reason: Hypoglycemia Diphenhydramine HCl (Benadryl) 25 mg PO TID PRN PRN PRN Reason: ITCHING Last Admin: 11/09/18 03:27 Dose: 25 mg Docusate Sodium (Colace) 100 mg PO BID PRN PRN Reason: Constipation Last Admin: 11/10/18 22:20 Dose: 100 mg Enoxaparin Sodium (Lovenox) 40 mg SC DAILY@1000 [facility] Last Admin: 11/10/18 08:11 Dose: 40 mg Escitalopram Oxalate (Lexapro) 10 mg PO DAILY [facility] Last Admin: 11/10/18 08:07 Dose: 10 mg Gabapentin (Neurontin) 800 mg PO TIDCM [facility] Last Admin: 11/10/18 17:05 Dose: 800 mg Glucagon () 1 mg IM .X1 PRN PRN Reason: Hypoglycemia Ceftriaxone Sodium 2 gm/ (Sodium Chloride) 50 mls @ 100 mls/hr IV Q24 [facility] Last Admin: 11/10/18 13:10 Dose: 100 mls/hr Insulin Glargine (Lantus (Bkc)) 30 units SC 0800 [facility] Last Admin: 11/10/18 08:10 Dose: 30 u Insulin Glargine (Lantus (Bkc)) 20 units SC QHS [facility] Last Admin: 11/10/18 22:22 Dose: 20 u Insulin Human Lispro (Humalog Kwikpen (Bk)) 0 unit SQ ACHS [facility]; Protocol Last Admin: 11/10/18 22:24 Dose: 6 u Insulin Human Lispro (Humalog Kwikpen ([facility])) 20 unit SC 0800,1200,1700 [facility] Last Admin: 11/10/18 17:05 Dose: 20 u Isosorbide Mononitrate (Imdur) 30 mg PO DAILY [facility] Last Admin: 11/10/18 08:11 Dose: 30 mg Lisinopril (Zestril) 5 mg PO DAILY [facility] Last Admin: 11/10/18 08:12 Dose: 5 mg Magnesium Hydroxide (Milk Of Magnesia) 30 ml PO DAILY PRN PRN PRN Reason: Constipation Magnesium Oxide (Mag-Ox 400) 400 mg PO BID [facility] Last Admin: 11/10/18 22:21 Dose: 400 mg Metoprolol Tartrate (Lopressor (Beta Tin)) 12.5 mg PO BID [facility] Last Admin: 11/10/18 22:22 Dose: 12.5 mg Metronidazole (Flagyl) 500 mg PO TID [facility] Last Admin: 11/11/18 05:57 Dose: 500 mg Nutritional Formula (Lactose Free) (Glucerna Shake) 120 ml PO TIDCM [facility] Last Admin: 11/10/18 17:06 Dose: 120 ml Ondansetron HCl (Zofran) 4 mg IV Q8H PRN PRN PRN Reason: NAUSEA Last Admin: 11/10/18 08:07 Dose: 4 mg Oxycodone HCl (Oxyir) 5 mg PO Q4H PRN PRN PRN Reason: PAIN Last Admin: 11/10/18 22:19 Dose: 5 mg Pantoprazole Sodium (Protonix) 20 mg PO DAILY [facility] Last Admin: 11/10/18 08:02 Dose: 20 mg Pramipexole Dihydrochloride (Mirapex) 1.5 mg PO BID [facility] Last Admin: 11/10/18 22:21 Dose: 1.5 mg Sodium Chloride () 5 - 15 ml IV UD PRN PRN Reason: SALINE FLUSH Last Admin: 11/11/18 05:59 Dose: 10 ml Zolpidem Tartrate (Ambien (Generic)) 5 mg PO QHS PRN PRN PRN Reason: INSOMNIA Last Admin: 11/10/18 22:19 Dose: 5 mg Medical Necessity - Tobacco Use Smoking Status: Never smoker Assessment/Plan All Active Problems (Last Reviewed 09/28/18 @ 15:32 by Saravanan Jean Baptiste MD) Chest pain (Acute) Osteomyelitis (Acute) NSTEMI (non-ST elevated myocardial infarction) (Resolved) Diabetic foot ulcer associated with type 2 diabetes mellitus (Acute) Patient is a 53-year-old lady with history of diabetes mellitus type 2 with complications including diabetic polyneuropathy as well as diabetic foot infections presented with worsening diabetic foot ulceration with edema and copious discharge 1. Acute diabetic foot infection (plantar surface abscess and early osteomyelitis involving the distal aspect of the fifth metatarsal bone). Patient has been admitted to regular nursing floor antibiotics initiated per protocol with Levaquin and Flagyl as well as vancomycin. Patient apparently has allergies to penicillin. Cultures were sent. MRI of the left foot ordered as below. Consult was placed to podiatry medicine Dr. Allen; Case discussed with him. Also added infectious disease consultation. MRSA screen on admission negative vancomycin discontinued. Patient underwent incision and drainage of left foot ulceration with bone biopsy 11/09/2018. Her wound culture so far positive for gram-positive organisms final identification and sensitivities pending. Patient was also seen in consultation by Dr. Tello his notes and recommendations reviewed. 2. Diabetes mellitus type 2 with complications including diabetic foot infections as well as polyneuropathy. Did continue patient home insulin regimen with adjustment of doses as needed in addition to Accu-Cheks before meals and at bedtime with sliding scale coverage 3. CAD with previous PCI DARA to mid and proximal LAD in September 2018 4. Hypertension-blood pressure controlled, home medications continued with dose adjustment as needed 5. Dyslipidemia-patient is on statin therapy, continued at home dose 6. Depression with anxiety 7. Restless leg syndrome: Patient is on ropinirole 8. Chronic back pain 9. Diabetic polyneuropathy patient is on gabapentin 10. Obesity with BMI of 30.0 weight loss advised 11. DVT prophylaxis SC Lovenox Code Visit Inpatient E&M: 11802 Subs Hosp L2
[2018-11-11 07:45] LABS: Bedside Glucose 234 mg/dL (70-110)
[2018-11-11] MEDS: Ondansetron 4 MG/2 ML Vial IV ×2 (09:10→21:13)
[2018-11-11] MEDS: Insulin Lispro 100 UNIT/ML INSULN.PEN 20 UNIT SC (09:12)
[2018-11-11] MEDS: Insulin Lispro 100 UNIT/ML INSULN.PEN SQ ×2 (09:13→22:36)
--- NOTE | 2018-11-11 09:20 | NURSING ---
pt playing a game on phone when nurse entered room.
--- NOTE | 2018-11-11 09:32 | TREXTCAR_ITS ---
- Diet 11/09/18 17:10 ADA [Diet: Cardiac: Calorie-Controlled] Type of Dietary Supplement:: Glucerruben Villasenorke Is pt able to select menu?: Yes How many daily calories?: 1800 calorie - Routine Orders/Code Status Routine Lab Work: CBC - q weekly, BMP - q weekly Code Status: Full Code - Wound(s) left foot Wound Type: Open Surgical Wound Dressing Change: Adaptic and wound va - Therapies Physical Therapy: Eval and Treat Occupational Therapy: Eval and Treat - Problem/Diagnosis (1) HLD (hyperlipidemia) Status: Chronic Current Visit: No (2) Neuropathic pain Status: Chronic Current Visit: No (3) GERD (gastroesophageal reflux disease) Status: Chronic Current Visit: No (4) Hypomagnesemia Status: Chronic Current Visit: No (5) Back pain, chronic Status: Chronic Current Visit: No (6) Depression Status: Chronic Current Visit: No (7) Diabetic foot ulcer associated with type 2 diabetes mellitus Status: Acute Current Visit: No (8) RLS (restless legs syndrome) Status: Chronic Current Visit: No (9) Type II diabetes mellitus, uncontrolled Status: Chronic Current Visit: No (10) Anxiety state Status: Chronic Current Visit: No - Allergies/Procedures Done in Hospital Allergies/Adverse Reactions: Allergies oxycodone [From OxyContin] Allergy (Verified 11/08/18 13:15) Shortness of breath Penicillins Allergy (Verified 11/05/18 19:35) Shortness of breath - Type of Care/Length of Stay Estimated LOS: Convalescent Care Less Than 30 days Type of Care Needed: Skilled Rehab Potential: Good Prognosis: Good - Additional Orders/Day of Discharge Day of Discharge: 11/11/18 - Dietary and Speech Recommendations Dietitian Recommendations/Changes: Rec diet change to 1800 calorie controlled. Rec 1 packet Ted BID for wound healing. Rec outpatient referal to [facility] - Follow Up Care Primary Care Physician: Raúl Eric MD [Primary Care Provider] - Please Follow Up With: Landen Allen DPM When: in 1 week
--- NOTE | 2018-11-11 10:09 | PCM.DC.SUM ---
Discharge Date and Diagnosis - Problem List Patient Problems: Active and Suspected Problems (Last Reviewed 09/28/18 @ 15:32 by Saravanan Jean Baptiste MD) Osteomyelitis (Acute) Date of Admission: 11/08/18 Date of Discharge: 11/11/18 - Primary Discharge Diagnosis Active and Suspected Problems (Last Reviewed 09/28/18 @ 15:32 by Saravanan Jean Baptiste MD) Osteomyelitis (Acute) - Secondary Discharge Diagnosis Chronic Problems (Last Reviewed 09/28/18 @ 15:32 by Saravanan Jean Baptiste MD) HLD (hyperlipidemia) (Chronic) Neuropathic pain (Chronic) GERD (gastroesophageal reflux disease) (Chronic) Hypomagnesemia (Chronic) Back pain, chronic (Chronic) Depression (Chronic) RLS (restless legs syndrome) (Chronic) Type II diabetes mellitus, uncontrolled (Chronic) Anxiety state (Chronic) Hospital Course and Treatment Imaging Results: Clinical Impression(s) from Imaging Studies Lower Extremity MRI 11/08/18 11:49 IMPRESSION: Small fluid collection with wall enhancement at the plantar lateral aspect of the foot suggestive of abscess. Interval development of mild bone edema in the distal aspect of the amputated fifth metatarsal, either reactive bone edema or early osteomyelitis. Arthropathy of the navicular-cuneiform and second through fifth tarsometatarsal joints suggestive of neuropathic arthropathy. Edema in the musculature of the proximal lateral forefoot, suggestive of myositis. Atrophy of the intrinsic muscles of the foot suggestive of peripheral arthropathy. Electronically Signed: Saqib Roberts MD at 16:10 EST Tel , Service support , Microbiology 11/09/18 16:32 Biopsy - Bone Gram Stain - Final 11/09/18 16:32 Biopsy - Bone Wound Culture - Preliminary No growth-Final to follow 11/08/18 12:35 Wound Abcess - Other Gram Stain - Final 11/08/18 12:35 Wound Abcess - Other Wound Culture - Final Streptococcus agalactiae (B) Staphylococcus epidermidis 11/08/18 12:35 Wound Abcess - Other Anaerobic Culture - Preliminary Checking for anaerobes, further studies to follow. Consultations 11/08/18 11:40 Consult: Onc/Wound/blank driller Routine Comment: Operations: None, - Summary of Care Provided: Patient is a 53-year-old lady with history of diabetes mellitus type 2 with complications including diabetic polyneuropathy as well as diabetic foot infections presented with worsening diabetic foot ulceration with edema and copious discharge 1. Acute diabetic foot infection (plantar surface abscess and early osteomyelitis involving the distal aspect of the fifth metatarsal bone). Patient has been admitted to regular nursing floor antibiotics initiated per protocol with Levaquin and Flagyl as well as vancomycin. Patient apparently has allergies to penicillin. Cultures were sent. MRI of the left foot ordered as below. Consult was placed to podiatry medicine Dr. Allen; Case discussed with him. Also added infectious disease consultation. MRSA screen on admission negative vancomycin discontinued. Patient underwent incision and drainage of left foot ulceration with bone biopsy 11/09/2018. Her wound culture so far positive for gram-positive organisms final identification and sensitivities pending. Patient was also seen in consultation by Dr. Tello his notes and recommendations reviewed. He recommended for patient to be discharged on Rocephin and Flagyl for total of 6 weeks 2. Diabetes mellitus type 2 with complications including diabetic foot infections as well as polyneuropathy. Did continue patient home insulin regimen with adjustment of doses as needed in addition to Accu-Cheks before meals and at bedtime with sliding scale coverage 3. CAD with previous PCI DARA to mid and proximal LAD in September 2018 4. Hypertension-blood pressure controlled, home medications continued with dose adjustment as needed 5. Dyslipidemia-patient is on statin therapy, continued at home dose 6. Depression with anxiety 7. Restless leg syndrome: Patient is on ropinirole 8. Chronic back pain 9. Diabetic polyneuropathy patient is on gabapentin 10. Obesity with BMI of 30.0 weight loss advised 11. DVT prophylaxis SC Lovenox Patient Problems: Active and Suspected Problems (Last Reviewed 09/28/18 @ 15:32 by Saravanan Jean Baptiste MD) Osteomyelitis (Acute) Objective: GENERAL: cooperative HEENT: Atraumatic; moist oral mucosa EYES; Anicteric, Normal Conjunctiva NECK; supple, normal thyroid, no distended JVD. RESPIRATORY: Diminished to auscultation bilaterally, CARDIOVASCULAR: Regular S1 S2, no audible murmurs GI: soft, non-tender, normoactive bowel sounds, : No Renal angle tenderness; EXTREMITIES: Left foot in surgical dressing NEURO: Awake; no lateralizing signs. SKIN: scratch hubbard on both upper and lower extremities in addition to trunk - Physical Exam Vital Signs Temp Pulse Resp BP Pulse Ox 98.4 F 70 16 149/88 H 98 11/11/18 08:56 11/11/18 09:00 11/11/18 08:56 11/11/18 08:56 11/11/18 08:56 Oxygen Delivery Method Room Air Weight: 87.634 kg Body Mass Index (BMI) 30.5 Finger Stick Blood Glucose 120 Intake and Output for Last 24 Hours 11/09/18 11/10/18 11/11/18 23:59 23:59 23:59 Intake Total 4402 / 4402 1364 / 1364 1190 / 1190 Output Total 200 / 200 Balance 4202 / 4202 1364 / 1364 1190 / 1190 Microbiology Past 72 Hours 11/09/18 16:32 Gram Stain - Final Biopsy - Bone Wound Culture - Preliminary No growth-Final to follow 11/08/18 12:35 Gram Stain - Final Wound Abcess - Other Wound Culture - Final Streptococcus agalactiae (B) Staphylococcus epidermidis Anaerobic Culture - Preliminary Checking for anaerobes, further studies to follow. Laboratory Tests Past 24 Hrs 11/11/18 05:55 Sodium 141 Potassium 4.0 Chloride 105 Carbon Dioxide 26.0 Anion Gap 10 BUN 13 Creatinine 0.89 Estim Creat Clear Calc 68.43 Est GFR (MDRD) Af Amer 85 Est GFR (MDRD) Non-Af 71 BUN/Creatinine Ratio 14.6 Glucose 263 H Calcium 8.5 POC Glucose 11/11/18 11/10/18 11/10/18 07:35 22:18 15:49 POC Glucose 234 H 305 H 173 H 11/10/18 11:08 POC Glucose 210 H Discharge Diet: 1800 Calorie Control Diet Discharge Activity: Return to Normal Activity, May not drive while taking narcotic pain medications. Home Medications: Medications to take at Discharge Ascorbic Acid [Vitamin C] 500 mg PO BIDCM 09/20/18 Gabapentin [Neurontin] 800 mg PO TIDCM 09/20/18 Insulin Aspart [Novolog Flexpen] 20 units SUBCUT TIDCM 09/20/18 Insulin Glargine [Lantus SoloStar Pen] 30 units SUBCUT 0800 09/20/18 Ropinirole HCl [Requip] 3 mg PO BID 09/20/18 Clopidogrel Bisulfate [Plavix] 75 mg PO DAILY #30 tab 09/22/18 Atorvastatin Calcium [Lipitor] 80 mg PO QHS 09/23/18 Lisinopril [Zestril] 5 mg PO DAILY 09/23/18 Metoprolol Tartrate [Lopressor (beta kunal)] 12.5 mg PO BID 09/23/18 Isosorbide Mononitrate [Imdur] 30 mg PO DAILY #30 tab 09/24/18 escitalopram 10 mg tablet 10 mg PO DAILY 09/28/18 promethazine 25 mg tablet 25 mg PO Q6H PRN 09/28/18 Docusate Sodium [Colace] 100 mg PO BID PRN 11/08/18 Magnesium Oxide 400 mg PO BID 11/08/18 Oxycodone [Oxyir] 5 mg PO Q8H PRN PRN 11/08/18 Ceftriaxone 2 gm IV Q24 40 Days #40 vial 11/10/18 Metronidazole [Flagyl] 500 mg PO TID 40 Days #120 tab 11/10/18 Acetaminophen [Tylenol Tablet] 650 mg PO Q6H PRN PRN tablet 11/11/18 Insulin Glargine [Lantus SoloStar Pen] 20 units SC QHS pen 11/11/18 Insulin Lispro [Humalog KwikPen] See Protocol SQ ACHS insuln.pen 11/11/18 Mag Hydrox/Al Hydrox/Simeth [Mylanta II] 30 ml PO Q6H PRN PRN udc 11/11/18 Magnesium Hydroxide [Milk Of Magnesia] 30 ml PO DAILY PRN PRN udc 11/11/18 Oxycodone [Oxyir] 5 mg PO Q4H PRN PRN 3 Days #18 tab 11/11/18 Pantoprazole Sodium [Protonix] 20 mg PO DAILY tablet 11/11/18 Zolpidem Tartrate [Ambien] 5 mg PO QHS PRN PRN #7 tab 11/11/18 Following Prescrptions Were Given to Patient: Ceftriaxone 2 gm IV Q24 40 Days #40 vial Metronidazole [Flagyl] 500 mg PO TID 40 Days #120 tab Oxycodone [Oxyir] 5 mg PO Q4H PRN PRN 3 Days #18 tab PRN Reason: Pain Zolpidem Tartrate [Ambien] 5 mg PO QHS PRN PRN #7 tab PRN Reason: Insomnia Primary Care Physician: Raúl Eric MD [Primary Care Provider] - Please Follow Up With: Landen Allen DPM When: in 1 week Disposition: Assisted facility Minutes spent on discharge:: 45 Patient Condition:: Stable Medical Necessity - Tobacco Use Smoking Status: Never smoker Meaningful Use Info Meaningful Use Diagnoses (Choose all that apply): None applicable Code Visit Inpatient E&M: 34437 Disch Hosp
[2018-11-11 10:22] LABS: Bedside Glucose 198 mg/dL (70-110)
[2018-11-11] MEDS: Glucerna Shake 120 ML LIQUID PO ×2 (10:26→16:56)
[2018-11-11] MEDS: Metoprolol Tartrate 25 MG Tablet 12.5 MG PO ×2 (10:27→22:37)
[2018-11-11] MEDS: Pramipexole Di-HCl 0.5 MG Tablet 1.5 MG PO ×2 (10:29→22:35)
[2018-11-11] MEDS: Gabapentin 800 MG Tablet PO ×3 (10:29→16:57)
[2018-11-11] MEDS: Pantoprazole Sodium 20 MG Tablet PO (10:30)
[2018-11-11] MEDS: Lisinopril 5 MG Tablet PO (10:30)
[2018-11-11] MEDS: Isosorbide Mononitrate 30 MG Tablet PO (10:30)
[2018-11-11] MEDS: Ascorbic Acid 500 MG Tablet PO ×2 (10:30→16:57)
[2018-11-11] MEDS: Enoxaparin 40 MG/0.4 ML Syringe SC (10:31)
[2018-11-11] MEDS: Magnesium Oxide 400 MG Tablet PO ×2 (10:31→22:37)
[2018-11-11] MEDS: Clopidogrel Bisulfate 75 MG Tablet PO (10:31)
[2018-11-11] MEDS: Escitalopram Oxalate 10 MG Tablet PO (10:35)
[2018-11-11] MEDS: Aspirin E.C. 81 MG Tablet PO (10:36)
--- NOTE | 2018-11-11 11:47 | NURSING ---
Report called to receiving nurse Bowen at [facility].
--- NOTE | 2018-11-11 12:07 | NURSING ---
Nurse William at [facility] was informed that pt did not eat very much for breakfast, does not want to have lunch, so this nurse will not give insulin that is ordered. Has wound vac, which will be removed and covered with wet to dry drsg.
--- NOTE | 2018-11-11 12:15 | NURSING ---
[facility] called informed hospital vac removed, confirm # [id number]
--- NOTE | 2018-11-11 13:03 | NURSING ---
Aware [facility] had sent a text message that pt said she does not feel good, had emesis states she thinks she thew her pills, none viewed by nurse. any new orders [facility] [id number] no reply. transport here. sent Dr. Yates a message asking if still sending/discharging patient that transport is here. response what do you think... you are seeing her now. As [facility] stated responded I feel uncomfortable sending her like that but you are the doc. Dr. Yates responded Lets keep her will try again tomorrow. recieved order to Cancel Discharge 13:08 NURSE CONSULTANT states pt feels like her glucose is dropping. This nurse informed primary RN and went in to check OT, OT 60 pt awake and talking, given snacks. pt pertaking in them. Primary RN informed of this.
[2018-11-11 13:42] LABS: Bedside Glucose 60 mg/dL (70-110)
[2018-11-11 13:42] LABS: Bedside Glucose 108 mg/dL (70-110)
[2018-11-11] MEDS: proMETHazine 25 MG/ML Syringe 12.5 MG IM (15:21)
[2018-11-11] MEDS: oxyCODONE 5 MG Tablet PO ×2 (15:32→22:38)
[2018-11-11 15:41] LABS: Bedside Glucose 179 mg/dL (70-110)
[2018-11-11] MEDS: Insulin Lispro 100 UNIT/ML INSULN.PEN 10 UNIT SC (16:58)
[2018-11-11 17:01] LABS: Bedside Glucose 236 mg/dL (70-110)
[2018-11-11] MEDS: Atorvastatin Calcium 80 MG Tablet PO (22:37)
[2018-11-11 23:26] LABS: Bedside Glucose 363 mg/dL (70-110)
[2018-11-12] VITALS (7 sets, daily range): BP systolic 99–127; BP diastolic 54–71; PULSE 78–90; RESP 16–18; TEMP 37–37.2; O2SAT 94–98
[2018-11-12] MEDS: proMETHazine 25 MG/ML Syringe 12.5 MG IM (04:36)
[2018-11-12 04:41] LABS: Bedside Glucose 191 mg/dL (70-110)
[2018-11-12] MEDS: Ondansetron 4 MG/2 ML Vial IV ×2 (06:06→13:10)
[2018-11-12] MEDS: 0.9% NaCl Peripheral Flush Adult/Peds IV ×3 (06:07→14:04)
--- NOTE | 2018-11-12 06:11 | NURSING ---
pt. c/o of having trouble catching breath while lying slightly flat. Took pt. pulse ox and it was 96% and raised HOB
--- NOTE | 2018-11-12 06:16 | EKG12_ITS ---
Test Reason : CP Blood Pressure : / mmHG Vent. Rate : 079 BPM Atrial Rate : 079 BPM P-R Int : 172 ms QRS Dur : 086 ms QT Int : 388 ms P-R-T Axes : 040 022 017 degrees QTc Int : 444 ms Normal sinus rhythm Normal ECG When compared with ECG of 09-NOV-2018 04:50, ST no longer elevated in Lateral leads Confirmed by OTTO DELVALLE, DOMINIQUE ([id number]), art editor MARLON GALEANA ([id number]) on 11/15/2018 2:25:04 PM Referred By: Rodney Yates Confirmed By:DOMINIQUE MENJIVAR MD
[2018-11-12] MEDS: oxyCODONE 5 MG Tablet PO ×2 (06:37→13:09)
[2018-11-12] MEDS: metroNIDAZOLE 500 MG Tablet PO ×2 (06:37→14:04)
[2018-11-12] MEDS: Insulin Lispro 100 UNIT/ML INSULN.PEN SQ ×2 (06:38→12:08)
[2018-11-12 06:46] LABS: Bedside Glucose 175 mg/dL (70-110)
--- NOTE | 2018-11-12 07:27 | NURSING ---
0600 pt. c/o of slight chest pain and asked if she could have an aspirin to chew on. This put 2L on oxygen on patient. Requested STAT EKG and paged hospitalist. Hospitalist ordered x1 nitro tab. Took pt's vitals and pt. c/o more of shoulder pain rather than chest pain. EKG was cleared as ok by hospitalist and oxyir was given for shoulder pain. Vitals stable. Pt. resting in bed playing a game on her phone with no further complaints.
--- NOTE | 2018-11-12 08:23 | PCM.PROGNOTE ---
Patient Problems: Active and Suspected Problems (Last Reviewed 09/28/18 @ 15:32 by Saravanan Jean Baptiste MD) Osteomyelitis (Acute) Subjective: This 53 year old diabetic female was seen resting comfortably in her bed this morning. This patient is being seen for today as consult for Dr. Allen. Patient is POD #3 s/p I&D of ulcer to left lateral foot with bone biopsy. Patient has appetite this morning. She relates that she is feeling better today than she did yesterday. She relates that her pain is well controlled. She denies any feelings of vomiting, fever, or chills currently. She relates the nausea she was experiencing yesterday is subsiding. - Physical Exam General: Alert, Oriented x3, Cooperative Extremities: Capillary Refill Less than 3 Seconds - To distal digits 1-4 of the left foot, No Calf Tenderness - negative gabriel and araiza sign Skin: - - Wound vac left in place today. There is no surrounding erythema/cellulitis apprecited today. No pain on palpation in area around surgical site. Wound vac secured with no leaks appreciated. Musculoskeletal: - - No pain with manipulation around surgical site Neurological: - - epicritic sensation absent to lower extremity Psych/Mental Status: Normal Affect, Appropriate Vital Signs Temp Pulse Resp BP Pulse Ox 98.6 F 90 18 114/59 L 96 11/12/18 07:58 11/12/18 08:02 11/12/18 07:58 11/12/18 07:58 11/12/18 07:58 Oxygen Flow Rate (L/min) 2 Oxygen Delivery Method Room Air Weight: 87.634 kg Body Mass Index (BMI) 30.5 Finger Stick Blood Glucose 120 Intake and Output for Last 24 Hours 11/10/18 11/11/18 11/12/18 23:59 23:59 23:59 Intake Total 1364 / 1364 1190 / 1190 600 / 600 Balance 1364 / 1364 1190 / 1190 600 / 600 Microbiology Past 72 Hours 11/09/18 16:32 Gram Stain - Final Biopsy - Bone Wound Culture - Final No growth aerobically. Anaerobic Culture - Preliminary No growth in 48 hours. 11/08/18 12:35 Gram Stain - Final Wound Abcess - Other Wound Culture - Final Streptococcus agalactiae (B) Staphylococcus epidermidis Anaerobic Culture - Final No anaerobic bacteria isolated. POC Glucose 11/12/18 11/12/18 11/11/18 06:34 04:35 22:29 POC Glucose 175 H 191 H 363 H 11/11/18 11/11/18 11/11/18 16:52 15:16 13:33 POC Glucose 236 H 179 H 108 11/11/18 11/11/18 13:06 10:15 POC Glucose 60 L 198 H Medical Necessity - Tobacco Use Smoking Status: Never smoker Assessment/Plan All Active Problems (Last Reviewed 09/28/18 @ 15:32 by Saravanan Jean Baptiste MD) Chest pain (Acute) Osteomyelitis (Acute) NSTEMI (non-ST elevated myocardial infarction) (Resolved) Diabetic foot ulcer associated with type 2 diabetes mellitus (Acute) s/p I&D with bone biopsy of left foot POD #3 DM with neuropathy OM other comorbidities This patient was carefully examined and evaluated in detail today as a courtesy consult visit for Dr. Allen. Wound vac examined and noted to be secured with no leaks. There is no cellulitis surrounding vac or any other signs of local infection currently appreciated to the area. No calf pain or tenderness. Patient's pain is well controlled. Her vital signs are stable. Her nausea she noted yesterday has continued to resolve. Patient is currently on IV antibiotics and being followed by the medical team as well as ID. Dr. Allen recommends this patient reamain in rehab/ecf until ulcer is healed or almost healed. Patient to be discharged with wound vac per Dr. Allen. If any issues arise, please contact Dr. Allen and he can contact me as needed for this patient.
--- NOTE | 2018-11-12 08:49 | DS.PCM_ITS ---
Discharge Date and Diagnosis - Problem List Patient Problems: Active and Suspected Problems (Last Reviewed 09/28/18 @ 15:32 by Saravanan Jean Baptiste MD) Osteomyelitis (Acute) Date of Admission: 11/08/18 Date of Discharge: 11/12/18 - Primary Discharge Diagnosis Active and Suspected Problems (Last Reviewed 09/28/18 @ 15:32 by Saravanan Jean Baptiste MD) Osteomyelitis (Acute) - Secondary Discharge Diagnosis Chronic Problems (Last Reviewed 09/28/18 @ 15:32 by Saravanan Jean Baptiste MD) HLD (hyperlipidemia) (Chronic) Neuropathic pain (Chronic) GERD (gastroesophageal reflux disease) (Chronic) Hypomagnesemia (Chronic) Back pain, chronic (Chronic) Depression (Chronic) RLS (restless legs syndrome) (Chronic) Type II diabetes mellitus, uncontrolled (Chronic) Anxiety state (Chronic) Hospital Course and Treatment Imaging Results: Microbiology 11/09/18 16:32 Biopsy - Bone Gram Stain - Final 11/09/18 16:32 Biopsy - Bone Wound Culture - Final No growth aerobically. 11/09/18 16:32 Biopsy - Bone Anaerobic Culture - Preliminary No growth in 48 hours. 11/08/18 12:35 Wound Abcess - Other Gram Stain - Final 11/08/18 12:35 Wound Abcess - Other Wound Culture - Final Streptococcus agalactiae (B) Staphylococcus epidermidis 11/08/18 12:35 Wound Abcess - Other Anaerobic Culture - Final No anaerobic bacteria isolated. Clinical Impression(s) from Imaging Studies Lower Extremity MRI 11/08/18 11:49 IMPRESSION: Small fluid collection with wall enhancement at the plantar lateral aspect of the foot suggestive of abscess. Interval development of mild bone edema in the distal aspect of the amputated fifth metatarsal, either reactive bone edema or early osteomyelitis. Arthropathy of the navicular-cuneiform and second through fifth tarsometatarsal joints suggestive of neuropathic arthropathy. Edema in the musculature of the proximal lateral forefoot, suggestive of myositis. Atrophy of the intrinsic muscles of the foot suggestive of peripheral arthropathy. Electronically Signed: Saqib Roberts MD at 16:10 EST Tel , Service support , Consultations 11/08/18 11:40 Consult: Onc/Wound/laboratory technologist Routine Comment: Operations: None, - Summary of Care Provided: Patient is a 53-year-old lady with history of diabetes mellitus type 2 with complications including diabetic polyneuropathy as well as diabetic foot infections presented with worsening diabetic foot ulceration with edema and copious discharge 1. Acute diabetic foot infection (plantar surface abscess and early osteomyelitis involving the distal aspect of the fifth metatarsal bone). Patient has been admitted to regular nursing floor antibiotics initiated per protocol with Levaquin and Flagyl as well as vancomycin. Patient apparently has allergies to penicillin. Cultures were sent. MRI of the left foot ordered as below. Consult was placed to podiatry medicine Dr. Allen; Case discussed with him. Also added infectious disease consultation. MRSA screen on admission negative vancomycin discontinued. Patient underwent incision and drainage of left foot ulceration with bone biopsy 11/09/2018. Her wound culture so far positive for gram-positive organisms final identification and sensitivities pending. Patient was also seen in consultation by Dr. Tello his notes and recommendations reviewed. He recommended for patient to be discharged on Rocephin and Flagyl for total of 6 weeks 2. Diabetes mellitus type 2 with complications including diabetic foot infections as well as polyneuropathy. Did continue patient home insulin regimen with adjustment of doses as needed in addition to Accu-Cheks before meals and at bedtime with sliding scale coverage 3. CAD with previous PCI DARA to mid and proximal LAD in September 2018 4. Hypertension-blood pressure controlled, home medications continued with dose adjustment as needed 5. Dyslipidemia-patient is on statin therapy, continued at home dose 6. Depression with anxiety 7. Restless leg syndrome: Patient is on ropinirole 8. Chronic back pain 9. Diabetic polyneuropathy patient is on gabapentin 10. Obesity with BMI of 30.0 weight loss advised 11. DVT prophylaxis SC Lovenox Patient Problems: Active and Suspected Problems (Last Reviewed 09/28/18 @ 15:32 by Saravanan Jean Baptiste MD) Osteomyelitis (Acute) - Physical Exam General: Alert HEENT: Atraumatic Neck: Supple Lungs: Clear to auscultation Cardiovascular: Regular rate, Regular Rhythm Extremities: No clubbing Neurological: Neuro grossly intact Psych/Mental Status: Flat Affect Vital Signs Temp Pulse Resp BP Pulse Ox 98.6 F 90 18 114/59 L 96 11/12/18 07:58 11/12/18 08:02 11/12/18 07:58 11/12/18 07:58 11/12/18 07:58 Oxygen Flow Rate (L/min) 2 Oxygen Delivery Method Room Air Weight: 87.634 kg Body Mass Index (BMI) 30.5 Finger Stick Blood Glucose 120 Intake and Output for Last 24 Hours 11/10/18 11/11/18 11/12/18 23:59 23:59 23:59 Intake Total 1364 / 1364 1190 / 1190 600 / 600 Balance 1364 / 1364 1190 / 1190 600 / 600 Microbiology Past 72 Hours 11/09/18 16:32 Gram Stain - Final Biopsy - Bone Wound Culture - Final No growth aerobically. Anaerobic Culture - Preliminary No growth in 48 hours. 11/08/18 12:35 Gram Stain - Final Wound Abcess - Other Wound Culture - Final Streptococcus agalactiae (B) Staphylococcus epidermidis Anaerobic Culture - Final No anaerobic bacteria isolated. POC Glucose 11/12/18 11/12/18 11/11/18 06:34 04:35 22:29 POC Glucose 175 H 191 H 363 H 11/11/18 11/11/18 11/11/18 16:52 15:16 13:33 POC Glucose 236 H 179 H 108 11/11/18 11/11/18 13:06 10:15 POC Glucose 60 L 198 H Discharge Diet: 1800 Calorie Control Diet Discharge Activity: Return to Normal Activity, May not drive while taking narcotic pain medications. Home Medications: Medications to take at Discharge Ascorbic Acid [Vitamin C] 500 mg PO BIDCM 09/20/18 Gabapentin [Neurontin] 800 mg PO TIDCM 09/20/18 Insulin Aspart [Novolog Flexpen] 20 units SUBCUT TIDCM 09/20/18 Insulin Glargine [Lantus SoloStar Pen] 30 units SUBCUT 0800 09/20/18 Ropinirole HCl [Requip] 3 mg PO BID 09/20/18 Clopidogrel Bisulfate [Plavix] 75 mg PO DAILY #30 tab 09/22/18 Atorvastatin Calcium [Lipitor] 80 mg PO QHS 09/23/18 Lisinopril [Zestril] 5 mg PO DAILY 09/23/18 Metoprolol Tartrate [Lopressor (beta kunal)] 12.5 mg PO BID 09/23/18 Isosorbide Mononitrate [Imdur] 30 mg PO DAILY #30 tab 09/24/18 escitalopram 10 mg tablet 10 mg PO DAILY 09/28/18 promethazine 25 mg tablet 25 mg PO Q6H PRN 09/28/18 Docusate Sodium [Colace] 100 mg PO BID PRN 11/08/18 Magnesium Oxide 400 mg PO BID 11/08/18 Oxycodone [Oxyir] 5 mg PO Q8H PRN PRN 11/08/18 Ceftriaxone 2 gm IV Q24 40 Days #40 vial 11/10/18 Metronidazole [Flagyl] 500 mg PO TID 40 Days #120 tab 11/10/18 Acetaminophen [Tylenol Tablet] 650 mg PO Q6H PRN PRN tablet 11/11/18 Insulin Glargine [Lantus SoloStar Pen] 20 units SC QHS pen 11/11/18 Insulin Lispro [Humalog KwikPen] See Protocol SQ ACHS insuln.pen 11/11/18 Mag Hydrox/Al Hydrox/Simeth [Mylanta II] 30 ml PO Q6H PRN PRN udc 11/11/18 Magnesium Hydroxide [Milk Of Magnesia] 30 ml PO DAILY PRN PRN udc 11/11/18 Oxycodone [Oxyir] 5 mg PO Q4H PRN PRN 3 Days #18 tab 11/11/18 Pantoprazole Sodium [Protonix] 20 mg PO DAILY tablet 11/11/18 Zolpidem Tartrate [Ambien] 5 mg PO QHS PRN PRN #7 tab 11/11/18 Following Prescrptions Were Given to Patient: Ceftriaxone 2 gm IV Q24 40 Days #40 vial Metronidazole [Flagyl] 500 mg PO TID 40 Days #120 tab Oxycodone [Oxyir] 5 mg PO Q4H PRN PRN 3 Days #18 tab PRN Reason: Pain Zolpidem Tartrate [Ambien] 5 mg PO QHS PRN PRN #7 tab PRN Reason: Insomnia Primary Care Physician: Raúl Eric MD [Primary Care Provider] - Please Follow Up With: Landen Allen DPM When: in 1 week Disposition: Intermediate facility Minutes spent on discharge:: 35 Medical Necessity - Tobacco Use Smoking Status: Never smoker Meaningful Use Info Meaningful Use Diagnoses (Choose all that apply): None applicable Code Visit Inpatient E&M: 18043 Disch Hosp
[2018-11-12] MEDS: Glucerna Shake 120 ML LIQUID PO ×2 (09:04→12:11)
[2018-11-12] MEDS: Pramipexole Di-HCl 0.5 MG Tablet 1.5 MG PO (09:05)
[2018-11-12] MEDS: Metoprolol Tartrate 25 MG Tablet 12.5 MG PO (09:06)
[2018-11-12] MEDS: Ascorbic Acid 500 MG Tablet PO (09:07)
[2018-11-12] MEDS: Isosorbide Mononitrate 30 MG Tablet PO (09:07)
[2018-11-12] MEDS: Enoxaparin 40 MG/0.4 ML Syringe SC (09:08)
[2018-11-12] MEDS: Lisinopril 5 MG Tablet PO (09:08)
[2018-11-12] MEDS: Clopidogrel Bisulfate 75 MG Tablet PO (09:08)
[2018-11-12] MEDS: Magnesium Oxide 400 MG Tablet PO (09:08)
[2018-11-12] MEDS: Gabapentin 800 MG Tablet PO ×2 (09:09→12:07)
[2018-11-12] MEDS: Aspirin E.C. 81 MG Tablet PO (09:09)
[2018-11-12] MEDS: Insulin Lispro 100 UNIT/ML INSULN.PEN 10 UNIT SC ×2 (09:10→12:07)
[2018-11-12] MEDS: Escitalopram Oxalate 10 MG Tablet PO (09:14)
--- NOTE | 2018-11-12 09:17 | NURSING ---
pt ate sausage and egg sandwich, drank all of her glucerna and finished oatmeal with brown sugar prior to giving 0800 o'clock insulin of 10 units.
[2018-11-12] MEDS: Pantoprazole Sodium 20 MG Tablet PO (10:29)
[2018-11-12 10:36] LABS: Bedside Glucose 164 mg/dL (70-110)
[2018-11-12 10:36] LABS: Bedside Glucose 239 mg/dL (70-110)
[2018-11-12 12:26] LABS: Bedside Glucose 281 mg/dL (70-110)
--- NOTE | 2018-11-12 14:06 | NURSING ---
Report called to Mary at [facility].
--- NOTE | 2018-11-12 15:12 | NURSING ---
1109 Trisha, pt daughter, was called and she said was is out of town but could be here by 1500 to take her mother to [facility] since there is no wheelchair van service available today.
--- NOTE | 2018-11-12 15:49 | NURSING ---
I notified for vac picker box operator/removal. reference number [id number]
== END 2018-11-12 15:52 | disposition skilled nursing facility (03) | DRG 623 ==
PROVIDERS: Anesthesiology; Podiatrist Foot & Ankle Surgery; Admitting Provider Internal Medicine; Family Provider Family Medicine; PCP Family Medicine; Referring Provider Internal Medicine; Visit Provider Internal Medicine
PROC: 0QBP0ZX Excision of Left Metatarsal, Open Approach, Diagnostic (ICD-10-PCS; principal; 2018-11-09 15:20)
DX: E11.621 Type 2 diabetes mellitus with foot ulcer (principal); L97.429 Non-pressure chronic ulcer of left heel and midfoot with unspecified severity; M86.8X7 Other osteomyelitis, ankle and foot; E78.5 Hyperlipidemia, unspecified; E11.69 Type 2 diabetes mellitus with other specified complication; G25.81 Restless legs syndrome; K21.9 Gastro-esophageal reflux disease without esophagitis; E11.65 Type 2 diabetes mellitus with hyperglycemia; B95.1 Streptococcus, group B, as the cause of diseases classified elsewhere; E11.42 Type 2 diabetes mellitus with diabetic polyneuropathy; I25.10 Atherosclerotic heart disease of native coronary artery without angina pectoris; F41.8 Other specified anxiety disorders; I10 Essential (primary) hypertension; E66.9 Obesity, unspecified; G89.29 Other chronic pain; M54.9 Dorsalgia, unspecified; I25.2 Old myocardial infarction; Z68.30 Body mass index [BMI] 30.0-30.9, adult; Z79.899 Other long term (current) drug therapy; Z95.5 Presence of coronary angioplasty implant and graft; Z79.4 Long term (current) use of insulin; L29.9 Pruritus, unspecified; Z79.02 Long term (current) use of antithrombotics/antiplatelets; Z79.891 Long term (current) use of opiate analgesic
CPT/HCPCS: 36415; 36569; 73720; 76000; 80048; 80053; 80202; 81025; 82962; 83036; 83735; 85025; 85652; 86140; 87070; 87075; 87186; 87205; 87640; 88304; 88305; 88311; 88312; 93005; 97110; 97162; 97165; 97535; 97802; 99283; A9585; J7030; J7040; J7050; A4216; J0696; J2405

== ENCOUNTER 2018-11-22 17:21 | Emergency (ER) | payer MEDICARE, MEDICAID, SELFPAY ==
[2018-09-21 13:23] VITALS: BMI 29.3
[2018-11-09 03:32] VITALS: BMI 30.5
[2018-11-22 17:23] VITALS: BP 144/99; PULSE 89; RESP 16; TEMP 36.9; O2SAT 99; BMI 29.0
--- NOTE | 2018-11-22 17:38 | ED.VISSUMM ---
- ER Visit Summary Date of Service: 11/22/18 Chief Complaint: IV antibiotics and PICC line dressing change History of Present Illness: The patient is a 53 F with recent treatment for osteomyelitis who presents to receive IV antibiotics and get her PICC dressing changed. Patient was recently admitted for osteomyelitis of the left foot secondary to a diabetic ulcer. Patient was discharged into the care of a intermediate facility and was receiving daily antibiotics and a right upper arm PICC line. Patient was discharged yesterday from the intermediate facility and home health was supposed to provide her with her IV antibiotics today. However the arrangements for home health did not happen, and patient was going to miss her dose today. She spoke with her representative personal service who recommended she come to the emergency department for her antibiotics. Patient states a different agency will be coming up tomorrow, and her antibiotics will be administered by a home health nurse tomorrow. Patient denies any fever or any constitutional symptoms. She has cleaned and wrapped her wound site on the left foot by herself and has no complaints. She does complain of mild pain around the site of the PICC line. Physical Examination: Vital signs: afebrile, hemodynamically stable, no hypoxia on room air General: well nourished, well developed, in no distress Skin: warm, dry, no rash, no pallor HEENT: normocephalic and atraumatic; PERRL, EOMI, moist mucous membranes Cardiovascular: regular rate and rhythm without murmurs, no peripheral edema, 2+ pulses all distal extremities Respiratory: No increased work of breathing, lungs are clear to auscultation bilaterally, no rales, rhonchi or wheezing Abdominal: Abdomen is soft, nontender with normoactive bowel sounds, no guarding or rebound, no masses MSK: Moves all extremities, no deformities, normal strength, right upper arm with a PICC line in place, small amount of dried blood around the insertion site, no erythema, induration, purulent drainage, contusion or any other abnormality other than mild tenderness to the inner arm. Left foot is wrapped in an [place] bandage. Underneath there is a healing wound to the plantar surface of the lateral foot, no induration or exudate noted. Neuro: Awake and alert, oriented ?4. No facial droop, sensation and motor function intact and symmetric Test Results: [] Emergency Department Course and Treatment: Patient's discharge summary was reviewed from her hospitalization, and she is to receive daily Rocephin 2 g IV. This was administered in her PICC line. Patient states she has the oral antibiotics at home and has all her other medications that she is supposed to take. The PICC line site was redressed. Patient will be discharged once antibiotics have been administered. Treatment Plan: [] Disposition: [] Impression: Left foot osteomyelitis, IV antibiotic administration, PICC line dressing change This note was generated with [employer] software. It may contain incorrect words, spelling, and punctuation that were not noted in review of the chart prior to signing ED Disposition - Plan for ED Patient: Referrals: Raúl Eric MD [Primary Care Provider] -
--- NOTE | 2018-11-22 17:42 | ED.DCSUM_ITS ---
- ER Visit Summary Date of Service: 11/22/18 Chief Complaint: IV antibiotics and PICC line dressing change History of Present Illness: The patient is a 53 F with recent treatment for osteomyelitis who presents to receive IV antibiotics and get her PICC dressing changed. Patient was recently admitted for osteomyelitis of the left foot secondary to a diabetic ulcer. Patient [facility] and was receiving daily antibiotics and a right upper arm PICC line. Patient was discharged yesterday from the penitentiary facility and home health was supposed to provide her with her IV antibiotics today. However the arrangements for home health did not happen, and patient was going to miss her dose today. She spoke with her senior windows systems engineer who recommended she come to the emergency department for her antibiotics. Patient states a different agency will be coming up tomorrow, and her antibiotics will be administered by a home health nurse tomorrow. Patient denies any fever or any constitutional symptoms. She has cleaned and wrapped her wound site on the left foot by herself and has no complaints. She does complain of mild pain around the site of the PICC line. Physical Examination: Vital signs: afebrile, hemodynamically stable, no hypoxia on room air General: well nourished, well developed, in no distress Skin: warm, dry, no rash, no pallor HEENT: normocephalic and atraumatic; PERRL, EOMI, moist mucous membranes Cardiovascular: regular rate and rhythm without murmurs, no peripheral edema, 2+ pulses all distal extremities Respiratory: No increased work of breathing, lungs are clear to auscultation bilaterally, no rales, rhonchi or wheezing Abdominal: Abdomen is soft, nontender with normoactive bowel sounds, no guarding or rebound, no masses MSK: Moves all extremities, no deformities, normal strength, right upper arm wit h a PICC line in place, small amount of dried blood around the insertion site, no erythema, induration, purulent drainage, contusion or any other abnormality other than mild tenderness to the inner arm. Left foot is wrapped in an [place] bandage. Underneath there is a healing wound to the plantar surface of the lateral foot, no induration or exudate noted. Neuro: Awake and alert, oriented ?4. No facial droop, sensation and motor function intact and symmetric Test Results: [] Emergency Department Course and Treatment: Patient's discharge summary was reviewed from her hospitalization, and she is to receive daily Rocephin 2 g IV. This was administered in her PICC line. Patient states she has the oral antibiotics at home and has all her other medications that she is supposed to take. The PICC line site was redressed. Patient will be discharged once antibiotics have been administered. Treatment Plan: [] Disposition: [] Impression: Left foot osteomyelitis, IV antibiotic administration, PICC line dressing change This note was generated with [employer] software. It may contain incorrect words, spelling, and punctuation that were not noted in review of the chart prior to signing ED Disposition - Plan for ED Patient: Referrals: Raúl Eric MD [Primary Care Provider] -
--- NOTE | 2018-11-22 17:42 | ED.DEP ---
ED Disposition - Plan for ED Patient: Disposition: Home or Assisted Living Instructions: ED PICC Line Care Referrals: Raúl Eric MD [Primary Care Provider] - 1-2 Days if not improving Additional Instructions: Keep your appointment with your doctor tomorrow. If you have any worsening of your condition or any new concerning symptoms, please return immediately to the emergency department for another evaluation.
[2018-11-22 19:05] LABS: Bedside Glucose 51 mg/dL (70-110)
[2018-11-22 19:22] VITALS: PULSE 94; RESP 18; TEMP 36.5; O2SAT 98
== END 2018-11-22 19:31 | disposition home or self-care (01) ==
LOC: ED 18:45
PROVIDERS: Emergency Provider Emergency Medicine; Family Provider Family Medicine; PCP Family Medicine
DX: M86.8X7 Other osteomyelitis, ankle and foot (principal); E11.621 Type 2 diabetes mellitus with foot ulcer; L97.529 Non-pressure chronic ulcer of other part of left foot with unspecified severity; Z79.4 Long term (current) use of insulin; Z79.02 Long term (current) use of antithrombotics/antiplatelets; Z79.891 Long term (current) use of opiate analgesic; Z79.899 Other long term (current) drug therapy
CPT/HCPCS: 82962; 96365; 99282; J7050; A4216; J0696

== ENCOUNTER 2018-12-20 23:10 | Inpatient (IN) | payer MEDICARE, MEDICAID, SELFPAY ==
[2018-09-21 13:23] VITALS: BMI 29.3
[2018-12-20 23:11] VITALS: BP 156/78; PULSE 110; RESP 18; TEMP 37.8; O2SAT 98; BMI 29.0
[2018-12-21] VITALS (23 sets, daily range): BP systolic 82–128; BP diastolic 40–75; PULSE 18–109; RESP 16–22; TEMP 36.5–37.6; O2SAT 95–99; BMI 30.1
--- NOTE | 2018-12-21 01:36 | RAD_ITS ---
STUDY: X-RAY - RIGHT FOOT CLINICAL: Female, 53 years old. Diabetic skin ulceration adjacent to the lateral malleolus. TECHNIQUE: 3 view(s) of the foot. COMPARISON: Radiographs of the right foot dated August 26, 2018. FINDINGS: Normal talus, calcaneus, and tarsal bones. There are degenerative changes at the intertarsal articulations with what appear to be erosions as well. The patient appears to have partial amputation of the mid and distal fifth metatarsal. Metatarsals otherwise have a normal appearance. Normal metatarsophalangeal joint of the great toe. Normal tibial and fibular sesamoid bones. Normal interphalangeal joint of the great toe. Normal phalanges of the great toe. Normal second through fifth metatarsophalangeal joints. Normal interphalangeal joints and phalanges of the lesser toes. There is moderate soft tissue swelling. There are bone fragments at the tarsometatarsal reticulation probably unchanged since the previous study. There is a lucency within the soft tissues adjacent to lateral malleolus that correspond to the ulceration mentioned in history. RAD/Foot min 3 Views IMPRESSION: 1. Moderately severe soft tissue swelling with evidence for ulceration of the lateral ankle. 2. Postoperative appearance of the foot with findings consistent with a neuropathic joint. Electronically Signed: Shirley Santos MD at 3:35 EDT , Service support ,
--- NOTE | 2018-12-21 01:36 | RAD_ITS ---
STUDY: X-RAY - RIGHT ANKLE REASON FOR EXAM: Female, 53 years old. Skin ulcer TECHNIQUE: 3 view(s) of the ankle. COMPARISON: None. FINDINGS: There is degenerative arthrosis of the tibiotalar joint and the tarsometatarsal joints. There is NO fracture or malalignment. There is generalized soft tissue swelling of the ankle greater on the lateral side. There is NO subcutaneous air or foreign body. 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 There is NO fracture or malalignment. There is NO destructive bony abnormality. There is generalized soft tissue swelling of the ankle greater on the lateral side. Electronically Signed: Dave Abrams MD at 3:41 EDT , Service support ,
[2018-12-21] MEDS: 0.9% Normal Saline 1,000 ML 999 ML IV (02:23)
[2018-12-21 02:30] LABS: Absolute Lymphocyte Count 0.99 X10^3/ul (0.83-4.51); Absolute Neutrophil Count 17.2 X10^3/uL (2.0-7.7); Basophil# 0.04 X10^3/uL; Basophil% 0.2 % (0-1); Eosinophil# 0.06 X10^3/uL; Eosinophils% 0.3 % (0-5); Hematocrit 35.8 % (37-47); Hemoglobin 11.6 g/dl (12.0-15.0); Lymphocyte # 0.99 X10^3/ul (4.0); Lymphocyte % 5.1 % (19-41); Mean Corp Hgb Conc 32.4 g/gl (32-36); Mean Corpuscular Hgb 27.2 pg (27.0-32.0); Mean Platelet Vol. 11.2 fl (6.2-12.0); Monocyte# 1.02 X10^3/uL; Monocyte% 5.3 % (0-10); Neutrophil % 88.9 % (47-70); Platelet Count 306 K/mm3 (150-450); RBC Distribution Width CV 14.2 % (11.6-14.6); Red Blood Count 4.26 M/mm3 (4.2-5.4); White Blood Count 19.4 K/mm3 (4.4-11.0)
[2018-12-21 02:32] LABS: POSITIVE COUNT NO; POSITIVE DIFFERENTIAL NO; POSITIVE MORPHOLOGY NO
[2018-12-21 02:36] LABS: Erythrocyte Sedimentation Rate 54 mm/hr (0-30)
[2018-12-21] MEDS: Pramipexole Di-HCl 0.25 MG Tablet PO (02:50)
[2018-12-21] MEDS: Ondansetron 4 MG/2 ML Vial IV ×2 (02:50→08:11)
[2018-12-21] MEDS: Morphine 4 MG/ML Syringe IV (02:53)
[2018-12-21 02:58] LABS: Anion Gap 8 (5-15); BUN 26 mg/dL (7-18); Calcium,Total 8.8 mg/dL (8.5-10.1); Chloride 103 mmol/L (98-107); Creatinine, Serum 1.13 mg/dL (0.55-1.02); EST Glomerular Filtration Rate 53 mL/min (>60); Est Glom Filt Rate - Afr Amer 65 mL/min (>60); Glucose 299 mg/dL (74-106); Lactic Acid 2.1 mmol/L (0.4-2.0); Potassium 3.8 mmol/L (3.5-5.1); Sodium Level 134 mmol/L (136-145)
--- NOTE | 2018-12-21 03:48 | PCM.HP.STD ---
Problem List (1) Severe sepsis Status: Acute (2) Wound of foot Status: Acute (3) HLD (hyperlipidemia) Status: Chronic Qualifiers: Hyperlipidemia type: pure hypercholesterolemia Qualified Code(s): E78.00 - Pure hypercholesterolemia, unspecified; E78.0 - Pure hypercholesterolemia (4) Neuropathic pain Status: Chronic (5) GERD (gastroesophageal reflux disease) Status: Chronic (6) Back pain, chronic Status: Chronic Qualifiers: Back pain location: back pain in unspecified location Back pain laterality: unspecified Qualified Code(s): M54.9 - Dorsalgia, unspecified; G89.29 - Other chronic pain (7) Depression Status: Chronic Qualifiers: Depression Type: unspecified Qualified Code(s): F32.9 - Major depressive disorder, single episode, unspecified (8) RLS (restless legs syndrome) Status: Chronic (9) Type II diabetes mellitus, uncontrolled Status: Chronic Qualifiers: Glycemic state: with hyperglycemia Qualified Code(s): E11.65 - Type 2 diabetes mellitus with hyperglycemia (10) Anxiety state Status: Chronic (11) CAD (coronary artery disease) Status: Chronic Qualifiers: Coronary Disease-Associated Artery/Lesion type: unspecified vessel or lesion type [place] vs. transplanted heart: unspecified whether [place] or transplanted heart Associated angina: angina presence unspecified Qualified Code(s): I25.10 - Atherosclerotic heart disease of [place] coronary artery without angina pectoris (12) HTN (hypertension) Status: Chronic Qualifiers: Hypertension type: essential hypertension Qualified Code(s): I10 - Essential (primary) hypertension History of Present Illness Date of Admission: 12/21/18 Chief Complaint: R foot wound, redness, streaking. The patient is a 53 y/o F w/ PMHx: Diabetes mellitus type II w/ Neuropathy, Overweight, HTN, HLD, CAD s/p PCI DARA mid and proximal LAD 09/2018, RLS, Anxiety and Depression, History of notable BL LE diabetic foot wounds/ulcers w/ more recent admission and intervention per Dr. Allen on 11/09/18 with incision and drainage of the left foot ulceration with a bone biopsy confirmed osteomyelitis who presents to the [facility] ED on 12/21/18 with diabetic skin ulceration adjacent to the lateral malleolus with onset of ulcer times approximately 1 week with evaluation outpatient MRI requested; however she was unable to make this visit, who now presents with onset on evening prior sudden periwound erythema, increased pain with lymphangitic streaking up the leg with nausea without emesis. In the ED work-up included T 100, heart rate 110, BP 156/70--> 94/50, respiratory rate 18, 98% on room air, CBC with WBC 419.4, hemoglobin 11.6, platelet 306 with left shift, ESR 54, BMP with sodium 134, BUN/creatinine 26/1.13 (baseline creatinine 0.9), glucose 299, lactic acid 2.1, CRP 38.10, culture x2 pending per ED, plain film right ankle with degenerative arthrosis of the tibial talar joint and the tarsometatarsal joints with no fracture or malalignment, no destructive bony abnormality, generalized soft tissue swelling of the ankle greater on the lateral side, right foot plain film with moderately severe soft tissue swelling with evidence for ulceration of the lateral ankle with postoperative appearance of the foot with findings consistent with neuropathic joint. In the ED patient administered vancomycin, normal saline, clindamycin. Past Medical History Past Medical History (Chronic Problems): Chronic Problems (Last Reviewed 09/28/18 @ 15:32 by Saravanan Jean Baptiste MD) CAD (coronary artery disease) (Chronic) HTN (hypertension) (Chronic) HLD (hyperlipidemia) (Chronic) Neuropathic pain (Chronic) GERD (gastroesophageal reflux disease) (Chronic) Hypomagnesemia (Chronic) Back pain, chronic (Chronic) Depression (Chronic) RLS (restless legs syndrome) (Chronic) Type II diabetes mellitus, uncontrolled (Chronic) Anxiety state (Chronic) Medical History: Medical History (Last Reviewed 09/28/18 @ 15:32 by Saravanan Jean Baptiste MD) HLD (hyperlipidemia) (Chronic) E78.5 Allergies oxycodone [From OxyContin] Allergy (Verified 12/20/18 23:10) Shortness of breath Penicillins Allergy (Verified 12/20/18 23:10) Shortness of breath Home Medications: Ambulatory Orders Medication Instructions Recorded Ascorbic Acid [Vitamin C] 500 mg PO BIDCM 09/20/18 Gabapentin [Neurontin] 800 mg PO TIDCM 09/20/18 Insulin Aspart [Novolog Flexpen] 20 units SUBCUT TIDCM 09/20/18 Insulin Glargine [Lantus SoloStar 30 units SUBCUT 0800 09/20/18 Pen] Ropinirole HCl [Requip] 3 mg PO BID 09/20/18 Clopidogrel Bisulfate [Plavix] 75 mg PO DAILY #30 tab 09/22/18 Atorvastatin Calcium [Lipitor] 80 mg PO QHS 09/23/18 Lisinopril [Zestril] 5 mg PO DAILY 09/23/18 Metoprolol Tartrate [Lopressor 12.5 mg PO BID 09/23/18 (beta kunal)] escitalopram 10 mg tablet 10 mg PO DAILY 09/28/18 promethazine 25 mg tablet 25 mg PO Q6H PRN 09/28/18 Insulin Lispro [Humalog KwikPen] See Protocol SQ ACHS insuln.pen 11/11/18 Mag Hydrox/Al Hydrox/Simeth 30 ml PO Q6H PRN PRN udc 11/11/18 [Mylanta II] Magnesium Hydroxide [Milk Of 30 ml PO DAILY PRN PRN udc 11/11/18 Magnesia] Zolpidem Tartrate [Ambien] 5 mg PO QHS PRN PRN #7 tab 11/11/18 Surgical History: - - Severel R foot toe ambuations and I+Ds, BL carpal tunnel surgery 1994, right shoulder surgery in 1994, section x2, most recently LLE I+D. 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 She had had multiple strokes preceding that. Patient had 3 brothers who had bypass surgery in their 50s. Paternal History Items: - - Patient states her father when she was 5 years old, denies known medical history, denies known cardiac history. Sibling History Items: - - She has one brother who is secondary to cancer and she does not know what kind of cancer he had. She also has 3 brothers with a history of cardiovascular disease, stents and coronary artery bypass grafting. Review of Systems Constitutional: Reports: Chills, Fever, Malaise, Weakness, Fatigue. Denies: Weight Change HEENT: Denies: Head Aches, Sinus Congestion, Sinus Drainage Cardiovascular: Denies: Chest Pain, Palpitations Respiratory: Denies: Cough, Shortness of breath at rest, Sputum production Gastrointestinal: Reports: Nausea. Denies: Abdominal Pain, Vomiting Genitourinary: Denies: Dysuria Musculoskeletal: Reports: Leg Pain. Denies: Joint Pain, Joint Tenderness Skin: Reports: Skin Changes, Wounds. Denies: Rash Neurological: Denies: Numbness, Tingling, Focal weakness Psychiatric: Reports: Anxiety, Depression. Denies: Homicidal Ideations, Suicidal Ideations Hematologic/ Lymphatic: Reports: Easy Bruising, Easy Bleeding VTE Information - Inpt Only VTE Present on Admission: No VTE Mechan Device Prophylaxis: SCD's VTE Pharm Prophylaxis ordered?: Yes Patient Problems: Active and Suspected Problems (Last Reviewed 09/28/18 @ 15:32 by Saravanan Jean Baptiste MD) Severe sepsis (Acute) Wound of foot (Acute) Subjective: Laying in the ED bed, fatigued appearance, notes ongoing discomfort to the right ankle. Objective: Physical Examination: General: awake, alert, oriented x 3 and cooperative, laying in the ED bed, fatigued and ill-appearing. Skin: normal color, turgor, no icterus, cyanosis except notable right lateral malleolus approximate quarter sized diabetic foot ulcer with periwound erythema, streaking up the leg, edematous, tender to palpation, no market purulent drainage. HEENT: AT/NC, EOMI, PERRLA, dry MM, no carotid bruits or JVD noted. Lungs: CTA bilaterally, moderate effort, mild decrease BL bases, no rales, ronchi or wheezing. Heart: Mildly tachycardic with regular rhythm; no gallop, rub audible. Abdomen: soft, overweight, NTTP, ND, normal BS, no HSM. Extremities: no cyanosis, clubbing, see skin, right lower extremity ankle to distal ruiz edema. Neurological: patient awake, alert, oriented x 3; cognitive function intact; pupils equally reactive to light and accomodation; cranial nerves II-XII grossly normal, moving all 4 extremities, no focal deficits, strength fairly globally decreased secondary to acute presentation. Psychiatric: affect appears fatigued, ill-appearing, no acute evidence of depressive or anxiety feelings. - Physical Exam Vital Signs Temp Pulse Resp BP Pulse Ox 99.4 F H 96 18 94/50 L 98 03/14/19 03:12 12/21/18 03:12 12/21/18 03:12 12/21/18 03:12 12/21/18 03:12 Oxygen Delivery Method Room Air Weight: 180 lb Body Mass Index (BMI) 29.0 Finger Stick Blood Glucose 52 Laboratory Tests Past 24 Hrs 12/21/18 12/21/18 12/21/18 02:16 02:16 02:16 WBC 19.4 H RBC 4.26 Hgb 11.6 L Hct 35.8 L MCV 84.0 MCH 27.2 MCHC 32.4 RDW 14.2 RDW Differential 43.0 Plt Count 306 MPV 11.2 Immature Gran % (Auto) 0.200 Neut % (Auto) 88.9 H Lymph % (Auto) 5.1 L [place] % (Auto) 5.3 Eos % (Auto) 0.3 Baso % (Auto) 0.2 Absolute Neuts (auto) 17.2 H Absolute Lymphs (auto) 0.99 Total Counted Not Reportable ESR 54 H Sodium 134 L Potassium 3.8 Chloride 103 Carbon Dioxide 23.0 Anion Gap 8 BUN 26 H Creatinine 1.13 H Estim Creat Clear Calc 53.90 Est GFR (MDRD) Af Amer 65 Est GFR (MDRD) Non-Af 53 L BUN/Creatinine Ratio 23.0 H Glucose 299 H Lactic Acid 2.1 H Calcium 8.8 C-React Prot Ext Range 38.10 H Assessment/Plan All Active Problems (Last Reviewed 09/28/18 @ 15:32 by Saravanan Jean Baptiste MD) Chest pain (Acute) Osteomyelitis (Acute) Severe sepsis (Acute) Wound of foot (Acute) NSTEMI (non-ST elevated myocardial infarction) (Resolved) Diabetic foot ulcer associated with type 2 diabetes mellitus (Acute) The patient is a 53 y/o F w/ PMHx: Diabetes mellitus type II w/ Neuropathy, Overweight, HTN, HLD, CAD s/p PCI DARA mid and proximal LAD 09/2018, RLS, Anxiety and Depression, History of notable BL LE diabetic foot wounds/ulcers w/ more recent admission and intervention per Dr. Allen on 11/09/18 with incision and drainage of the left foot ulceration with a bone biopsy confirmed osteomyelitis who presents to the [facility] ED on 12/21/18 with diabetic skin ulceration adjacent to the lateral malleolus with onset of ulcer times approximately 1 week with evaluation outpatient MRI requested; however she was unable to make this visit, who now presents with onset on evening prior sudden periwound erythema, increased pain with lymphangitic streaking up the leg with nausea without emesis. (1) Severe Sepsis secondary to Infected Diabetic Foot Ulcer, R Lateral Malleolus w/ Cellulitis: In the ED work-up included T1 100, heart rate 110, BP 156/70--> 94/50, respiratory rate 18, 98% on room air, CBC with WBC 419.4, hemoglobin 11.6, platelet 306 with left shift, ESR 54, BMP with sodium 134, BUN/creatinine 26/1.13 (baseline creatinine 0.9), glucose 299, lactic acid 2.1, CRP 38.10, culture x2 pending per ED, plain film right ankle with degenerative arthrosis of the tibial talar joint and the tarsometatarsal joints with no fracture or malalignment, no destructive bony abnormality, generalized soft tissue swelling of the ankle greater on the lateral side, right foot plain film with moderately severe soft tissue swelling with evidence for ulceration of the lateral ankle with postoperative appearance of the foot with findings consistent with neuropathic joint. In the ED patient administered vancomycin, normal saline, clindamycin. Will admit to [facility], maintain on IV Vancomycin, Levaquin and Flayl pending wound Cx as noted, Infectious Disease Dr. Tello and Podiatry Dr. Allen consulted, plan repeat CBC in AM, continue affected extremity elevation above heart when seated and in bed, monitor erythema outline with VS checks. Wound RN consulted. MRI R ankle ordered, pending. Presentation complicated by recent PCI w/ asa, plavix usage, will not stop at this time given timeline, allow diet given MRI pending also. May need to consider cardiology assessment if OR needed. (2) CAD: Status post recent PCI 09/2018 w/ DARA mid and proximal LAD, continue home regimen asa, plavix, statin, BB, ARB. (3) Diabetes mellitus type II w/ polyneuropathy: Continue home insulin regimen, ADA diet, accu checks w/ ISS, HgbA1c pending, vision consulted for education and teaching, continue gabapentin regimen. (4) Hypertension: Continue home regimen including lisinopril, metoprolol, PRN hydralazine. (5) Hyperlipidemia: Continue home statin regimen. (6) Anxiety and depression: Continue home regimen of escitalopram. (7) Restless leg syndrome: Continue home requip regimen. (8) Depression and anxiety: Continue home lexapro regimen. (9) Chronic back pain: Continue home regimen gabapentin previously on methadone, has been off for several years. (10) Restless leg syndrome continue home Requip regimen. (11) DVT prophylaxis: SCDs, Lovenox. Code Visit Inpatient E&M: 74519 Init Hosp L3
--- NOTE | 2018-12-21 03:51 | HP.PCM_ITS ---
Problem List (1) Severe sepsis Status: Acute (2) Wound of foot Status: Acute (3) HLD (hyperlipidemia) Status: Chronic Qualifiers: Hyperlipidemia type: pure hypercholesterolemia Qualified Code(s): E78.00 - Pure hypercholesterolemia, unspecified; E78.0 - Pure hypercholesterolemia (4) Neuropathic pain Status: Chronic (5) GERD (gastroesophageal reflux disease) Status: Chronic (6) Back pain, chronic Status: Chronic Qualifiers: Back pain location: back pain in unspecified location Back pain laterality: unspecified Qualified Code(s): M54.9 - Dorsalgia, unspecified; G89.29 - Other chronic pain (7) Depression Status: Chronic Qualifiers: Depression Type: unspecified Qualified Code(s): F32.9 - Major depressive disorder, single episode, unspecified (8) RLS (restless legs syndrome) Status: Chronic (9) Type II diabetes mellitus, uncontrolled Status: Chronic Qualifiers: Glycemic state: with hyperglycemia Qualified Code(s): E11.65 - Type 2 diabetes mellitus with hyperglycemia (10) Anxiety state Status: Chronic (11) CAD (coronary artery disease) Status: Chronic Qualifiers: Coronary Disease-Associated Artery/Lesion type: unspecified vessel or lesion type [place] vs. transplanted heart: unspecified whether [place] or transplanted heart Associated angina: angina presence unspecified Qualified Code(s): I25.10 - Atherosclerotic heart disease of [place] coronary artery without angina pectoris (12) HTN (hypertension) Status: Chronic Qualifiers: Hypertension type: essential hypertension Qualified Code(s): I10 - Essential (primary) hypertension History of Present Illness Date of Admission: 12/21/18 Chief Complaint: R foot wound, redness, streaking. The patient is a 53 y/o F w/ PMHx: Diabetes mellitus type II w/ Neuropathy, Overweight, HTN, HLD, CAD s/p PCI DARA mid and proximal LAD 09/2018, RLS, Anxiety and Depression, History of notable BL LE diabetic foot wounds/ulcers w/ more recent admission and intervention per Dr. Allen on 11/09/18 with incision and drainage of the left foot ulceration with a bone biopsy confirmed osteomyelitis who presents to the [facility] ED on 12/21/18 with diabetic skin ulceration adjacent to the lateral malleolus with onset of ulcer times approximately 1 week with evaluation outpatient MRI requested; however she was unable to make this visit, who now presents with onset on evening prior sudden periwound erythema, increased pain with lymphangitic streaking up the leg with nausea without emesis. In the ED work-up included T 100, heart rate 110, BP 156/70--> 94/50, respiratory rate 18, 98% on room air, CBC with WBC 419.4, hemoglobin 11.6, platelet 306 with left shift, ESR 54, BMP with sodium 134, BUN/creatinine 26/1.13 (baseline creatinine 0.9), glucose 299, lactic acid 2.1, CRP 38.10, culture x2 pending per ED, plain film right ankle with degenerative arthrosis of the tibial talar joint and the tarsometatarsal joints with no fracture or malalignment, no destructive bony abnormality, generalized soft tissue swelling of the ankle greater on the lateral side, right foot plain film with moderately severe soft tissue swelling with evidence for ulceration of the lateral ankle with postoperative appearance of the foot with findings consistent with neuropathic joint. In the ED patient administered vancomycin, normal saline, clindamycin. Past Medical History Past Medical History (Chronic Problems): Chronic Problems (Last Reviewed 09/28/18 @ 15:32 by Saravanan Jean Baptiste MD) CAD (coronary artery disease) (Chronic) HTN (hypertension) (Chronic) HLD (hyperlipidemia) (Chronic) Neuropathic pain (Chronic) GERD (gastroesophageal reflux disease) (Chronic) Hypomagnesemia (Chronic) Back pain, chronic (Chronic) Depression (Chronic) RLS (restless legs syndrome) (Chronic) Type II diabetes mellitus, uncontrolled (Chronic) Anxiety state (Chronic) Medical History: Medical History (Last Reviewed 09/28/18 @ 15:32 by Saravanan Jean Baptiste MD) HLD (hyperlipidemia) (Chronic) E78.5 Allergies oxycodone [From OxyContin] Allergy (Verified 12/20/18 23:10) Shortness of breath Penicillins Allergy (Verified 12/20/18 23:10) Shortness of breath Home Medications: Ambulatory Orders Medication Instructions Recorded Ascorbic Acid [Vitamin C] 500 mg PO BIDCM 09/20/18 Gabapentin [Neurontin] 800 mg PO TIDCM 09/20/18 Insulin Aspart [Novolog Flexpen] 20 units SUBCUT TIDCM 09/20/18 Insulin Glargine [Lantus SoloStar 30 units SUBCUT 0800 09/20/18 Pen] Ropinirole HCl [Requip] 3 mg PO BID 09/20/18 Clopidogrel Bisulfate [Plavix] 75 mg PO DAILY #30 tab 09/22/18 Atorvastatin Calcium [Lipitor] 80 mg PO QHS 09/23/18 Lisinopril [Zestril] 5 mg PO DAILY 09/23/18 Metoprolol Tartrate [Lopressor 12.5 mg PO BID 09/23/18 (beta kunal)] escitalopram 10 mg tablet 10 mg PO DAILY 09/28/18 promethazine 25 mg tablet 25 mg PO Q6H PRN 09/28/18 Insulin Lispro [Humalog KwikPen] See Protocol SQ ACHS insuln.pen 11/11/18 Mag Hydrox/Al Hydrox/Simeth 30 ml PO Q6H PRN PRN udc 11/11/18 [Mylanta II] Magnesium Hydroxide [Milk Of 30 ml PO DAILY PRN PRN udc 11/11/18 Magnesia] Zolpidem Tartrate [Ambien] 5 mg PO QHS PRN PRN #7 tab 11/11/18 Surgical History: - - Severel R foot toe ambuations and I+Ds, BL carpal tunnel surgery 1994, right shoulder surgery in 1994, section x2, most recently LLE I+D. Psychiatric History: Anxiety, Depression UNIT DIRECTOR History: No pertinent UNIT DIRECTOR history Lives: Spouse/ Significant Other Smoking Status: Never smoker Tobacco Use: Non-smoker Alcohol: None Drugs: None - *Family History Maternal History Items: Cancer - Patient had a brother who had testicular cancer; and later cancer in his stomach., Diabetes, Hypertension, - - Her mother at the age of 67 to a blood clot to the brain. She had had multiple strokes preceding that. Patient had 3 brothers who had bypass surgery in their 50s. Paternal History Items: - - Patient states her father when she was 5 years old, denies known medical history, denies known cardiac history. Sibling History Items: - - She has one brother who is secondary to cancer and she does not know what kind of cancer he had. She also has 3 brothers with a history of cardiovascular disease, stents and coronary artery bypass grafting. Review of Systems Constitutional: Reports: Chills, Fever, Malaise, Weakness, Fatigue. Denies: W eight Change HEENT: Denies: Head Aches, Sinus Congestion, Sinus Drainage Cardiovascular: Denies: Chest Pain, Palpitations Respiratory: Denies: Cough, Shortness of breath at rest, Sputum production Gastrointestinal: Reports: Nausea. Denies: Abdominal Pain, Vomiting Genitourinary: Denies: Dysuria Musculoskeletal: Reports: Leg Pain. Denies: Joint Pain, Joint Tenderness Skin: Reports: Skin Changes, Wounds. Denies: Rash Neurological: Denies: Numbness, Tingling, Focal weakness Psychiatric: Reports: Anxiety, Depression. Denies: Homicidal Ideations, Suicidal Ideations Hematologic/ Lymphatic: Reports: Easy Bruising, Easy Bleeding VTE Information - Inpt Only VTE Present on Admission: No VTE Mechan Device Prophylaxis: SCD's VTE Pharm Prophylaxis ordered?: Yes Patient Problems: Active and Suspected Problems (Last Reviewed 09/28/18 @ 15:32 by Saravanan Jean Baptiste MD) Severe sepsis (Acute) Wound of foot (Acute) Subjective: Laying in the ED bed, fatigued appearance, notes ongoing discomfort to the right ankle. Objective: Physical Examination: General: awake, alert, oriented x 3 and cooperative, laying in the ED bed, fatigued and ill-appearing. Skin: normal color, turgor, no icterus, cyanosis except notable right lateral malleolus approximate quarter sized diabetic foot ulcer with periwound erythema, streaking up the leg, edematous, tender to palpation, no market purulent dr bird. HEENT: AT/NC, EOMI, PERRLA, dry MM, no carotid bruits or JVD noted. Lungs: CTA bilaterally, moderate effort, mild decrease BL bases, no rales, ronchi or wheezing. Heart: Mildly tachycardic with regular rhythm; no gallop, rub audible. Abdomen: soft, overweight, NTTP, ND, normal BS, no HSM. Extremities: no cyanosis, clubbing, see skin, right lower extremity ankle to distal ruiz edema. Neurological: patient awake, alert, oriented x 3; cognitive function intact; pupils equally reactive to light and accomodation; cranial nerves II-XII grossly normal, moving all 4 extremities, no focal deficits, strength fairly globally decreased secondary to acute presentation. Psychiatric: affect appears fatigued, ill-appearing, no acute evidence of depressive or anxiety feelings. - Physical Exam Vital Signs Temp Pulse Resp BP Pulse Ox 99.4 F H 96 18 94/50 L 98 12/21/18 03:12 12/21/18 03:12 12/21/18 03:12 12/21/18 03:12 12/21/18 03:12 Oxygen Delivery Method Room Air Weight: 180 lb Body Mass Index (BMI) 29.0 Finger Stick Blood Glucose 52 Laboratory Tests Past 24 Hrs 12/21/18 12/21/18 12/21/18 02:16 02:16 02:16 WBC 19.4 H RBC 4.26 Hgb 11.6 L Hct 35.8 L MCV 84.0 MCH 27.2 MCHC 32.4 RDW 14.2 RDW Differential 43.0 Plt Count 306 MPV 11.2 Immature Gran % (Auto) 0.200 Neut % (Auto) 88.9 H Lymph % (Auto) 5.1 L [place] % (Auto) 5.3 Eos % (Auto) 0.3 Baso % (Auto) 0.2 Absolute Neuts (auto) 17.2 H Absolute Lymphs (auto) 0.99 Total Counted Not Reportable ESR 54 H Sodium 134 L Potassium 3.8 Chloride 103 Carbon Dioxide 23.0 Anion Gap 8 BUN 26 H Creatinine 1.13 H Estim Creat Clear Calc 53.90 Est GFR (MDRD) Af Amer 65 Est GFR (MDRD) Non-Af 53 L BUN/Creatinine Ratio 23.0 H Glucose 299 H Lactic Acid 2.1 H Calcium 8.8 C-React Prot Ext Range 38.10 H Assessment/Plan All Active Problems (Last Reviewed 09/28/18 @ 15:32 by Saravanan Jean Baptiste MD) Chest pain (Acute) Osteomyelitis (Acute) Severe sepsis (Acute) Wound of foot (Acute) NSTEMI (non-ST elevated myocardial infarction) (Resolved) Diabetic foot ulcer associated with type 2 diabetes mellitus (Acute) The patient is a 53 y/o F w/ PMHx: Diabetes mellitus type II w/ Neuropathy, Overweight, HTN, HLD, CAD s/p PCI DARA mid and proximal LAD 09/2018, RLS, Anxiety and Depression, History of notable BL LE diabetic foot wounds/ulcers w/ more recent admission and intervention per Dr. Allen on 11/09/18 with incision and drainage of the left foot ulceration with a bone biopsy confirmed osteomyelitis who presents to the [facility] ED on 12/21/18 with diabetic skin ulceration adjacent to the lateral malleolus with onset of ulcer times approximately 1 week with evaluation outpatient MRI requested; however she was unable to make this visit, who now presents with onset on evening prior sudden periwound erythema, increased pain with lymphangitic streaking up the leg with nausea without emesis. (1) Severe Sepsis secondary to Infected Diabetic Foot Ulcer, R Lateral Malleolus w/ Cellulitis: In the ED work-up included T1 100, heart rate 110, BP 156/70--> 94/50, respiratory rate 18, 98% on room air, CBC with WBC 419.4, hemoglobin 11.6, platelet 306 with left shift, ESR 54, BMP with sodium 134, BUN/creatinine 26/1.13 (baseline creatinine 0.9), glucose 299, lactic acid 2.1, CRP 38.10, culture x2 pending per ED, plain film right ankle with degenerative arthrosis of the tibial talar joint and the tarsometatarsal joints with no fracture or malalignment, no destructive bony abnormality, generalized soft tissue swelling of the ankle greater on the lateral side, right foot plain film with moderately severe soft tissue swelling with evidence for ulceration of the lateral ankle with postoperative appearance of the foot with findings consistent with neurop athic joint. In the ED patient administered vancomycin, normal saline, clindamycin. Will admit to [facility], maintain on IV Vancomycin, Levaquin and Flayl pending wound Cx as noted, Infectious Disease Dr. Tello and Podiatry Dr. Allen consulted, plan repeat CBC in AM, continue affected extremity elevation above heart when seated and in bed, monitor erythema outline with VS checks. Wound RN consulted. MRI R ankle ordered, pending. Presentation complicated by recent PCI w/ asa, plavix usage, will not stop at this time given timeline, allow diet given MRI pending also. May need to consider cardiology assessment if OR needed. (2) CAD: Status post recent PCI 09/2018 w/ DARA mid and proximal LAD, continue home regimen asa, plavix, statin, BB, ARB. (3) Diabetes mellitus type II w/ polyneuropathy: Continue home insulin regimen, ADA diet, accu checks w/ ISS, HgbA1c pending, vision consulted for education and teaching, continue gabapentin regimen. (4) Hypertension: Continue home regimen including lisinopril, metoprolol, PRN hydralazine. (5) Hyperlipidemia: Continue home statin regimen. (6) Anxiety and depression: Continue home regimen of escitalopram. (7) Restless leg syndrome: Continue home requip regimen. (8) Depression and anxiety: Continue home lexapro regimen. (9) Chronic back pain: Continue home regimen gabapentin previously on methadone, has been off for several years. (10) Restless leg syndrome continue home Requip regimen. (11) DVT prophylaxis: SCDs, Lovenox. Code Visit Inpatient E&M: 02141 Init Hosp L3
--- NOTE | 2018-12-21 04:09 | ED.DCSUM_ITS ---
- ER Visit Summary Date of Service: 12/21/18 Chief Complaint: Right foot wound History of Present Illness: The patient is a 53 F who presents with a right foot wound. It is been present for 1 week. She does not know if there was any injury. She does have a history of neuropathy. She developed redness pain and swelling tonight. She noticed red streaks going up to about the level of her knee. She reports nausea. No fevers. No vomiting. Physical Examination: Heart rate 103 temperature 99.4 Moist mucous membranes Heart regular tachycardia Lungs are clear Abdomen soft There is a 2 cm open wound over the lateral right ankle with surrounding erythema and soft tissue swelling she has lymphangitic streaking up the lower leg to about the level of the knee she has palpable pulses brisk capillary refill Test Results: Labs notable for white count 19.4. Glucose 299, BUN 26, creatinine 1.13. Lactic acid slightly elevated at 2.1. ESR 54, CRP 38.1. Ankle x-ray on my review shows no bony erosion. Emergency Department Course and Treatment: Patient was treated with IV clindamycin and vancomycin. She has a penicillin allergy. She was also given morphine and Zofran for pain. Patient was discussed with the hospitalist and admitted for further treatment. Treatment Plan: [] Disposition: Discharge Impression: Right buttock wound infection Cellulitis Severe sepsis This note was generated with [employer] dictation software. It may contain incorrect words, spelling, and punctuation that were not noted in review of the chart prior to signing ED Disposition - Plan for ED Patient: Referrals: Raúl Eric MD [Primary Care Provider] -
--- NOTE | 2018-12-21 04:09 | ED.RN ---
dr. fuentes informed of pt bp. fluid bolus running. will continue to monitor. no new orders at this time.
[2018-12-21 06:11] LABS: Absolute Lymphocyte Count 1.65 X10^3/ul (0.83-4.51); Absolute Neutrophil Count 15.5 X10^3/uL (2.0-7.7); Basophil# 0.03 X10^3/uL; Basophil% 0.2 % (0-1); Eosinophil# 0.05 X10^3/uL; Eosinophils% 0.3 % (0-5); Hematocrit 30.2 % (37-47); Hemoglobin 9.5 g/dl (12.0-15.0); Lymphocyte # 1.65 X10^3/ul (4.0); Lymphocyte % 9.1 % (19-41); Mean Corp Hgb Conc 31.5 g/gl (32-36); Mean Corpuscular Hgb 26.7 pg (27.0-32.0); Mean Corpuscular Volume 84.8 fL (81-99); Mean Platelet Vol. 11.3 fl (6.2-12.0); Monocyte# 0.88 X10^3/uL; Monocyte% 4.8 % (0-10); Neutrophil # 15.51 X10^3/uL (2.7-7.7); Neutrophil % 85.3 % (47-70); Platelet Count 282 K/mm3 (150-450); RBC Distribution Width CV 14.3 % (11.6-14.6); Red Blood Count 3.56 M/mm3 (4.2-5.4); White Blood Count 18.2 K/mm3 (4.4-11.0)
[2018-12-21 06:14] LABS: Anion Gap 9 (5-15); BUN 25 mg/dL (7-18); BUN/Creat Ratio 24.3 RATIO (10-20); Calcium,Total 7.8 mg/dL (8.5-10.1); Chloride 104 mmol/L (98-107); Creatinine, Serum 1.03 mg/dL (0.55-1.02); EST Glomerular Filtration Rate 60 mL/min (>60); Est Glom Filt Rate - Afr Amer 72 mL/min (>60); Estimated Creatinine Clearance 59.13 ml/min; Glucose 344 mg/dL (74-106); Magnesium 1.5 mg/dL (1.6-2.6); Potassium 3.9 mmol/L (3.5-5.1); Sodium Level 134 mmol/L (136-145)
[2018-12-21 06:19] LABS: POSITIVE COUNT NO; POSITIVE DIFFERENTIAL NO; POSITIVE MORPHOLOGY NO
[2018-12-21 06:20] LABS: Reflex Lactate? Y
[2018-12-21] MEDS: 0.9% Normal Saline 1,000 ML 125 ML IV ×3 (06:31→18:24)
--- NOTE | 2018-12-21 06:52 | PCM.RX.CS ---
Consult Pharmacy has been consulted to manage selected antiobiotic: Vancomycin Type of Consult: New start Suspected Infection: Sepsis Labs: Sodium 134 mmol/L (136-145) L 12/21/18 05:50 Potassium 3.9 mmol/L (3.5-5.1) 12/21/18 05:50 Chloride 104 mmol/L (98-107) 12/21/18 05:50 Carbon Dioxide 21.0 mmol/L (21.0-32.0) 12/21/18 05:50 Anion Gap 9 (5-15) 12/21/18 05:50 BUN 25 mg/dL (7-18) H 12/21/18 05:50 Creatinine 1.03 mg/dL (0.55-1.02) H 12/21/18 05:50 Est GFR (MDRD) Af Amer 72 mL/min (>60) 12/21/18 05:50 Est GFR (MDRD) Non-Af 60 mL/min (>60) 12/21/18 05:50 BUN/Creatinine Ratio 24.3 RATIO (10-20) H 12/21/18 05:50 Glucose 344 mg/dL (74-106) H 12/21/18 05:50 Weight used for dosin.5 kg Estimated Creatinine Clearance: 59.13 Goal Trough: 10-15 mcg/mL Pharmacy Plan for Drug Dosing: Pharmacy Service will continue to monitor and adjust dosing as required. Medications Vancomycin HCl (Vancomycin) 1,000 mg in 200 mls @ 200 mls/hr IV Q12H TAB Discontinued Medications Vancomycin HCl 1,250 mg/ (Dextrose) 275 mls @ 250 mls/hr IV X1 ONE Stop: 12/21/18 02:43 Last Admin: 12/21/18 03:09 Dose: 250 mls/hr Follow-Up Labs: Trough Vancomycin Labs to be done on [date and time ordered]: 12/22 @ 1500
[2018-12-21 07:03] LABS: Lactic Acid 1.4 mmol/L (0.4-2.0)
[2018-12-21 07:54] LABS: Hemoglobin A1c 12.2 % (4.2-6.3)
--- NOTE | 2018-12-21 07:59 | MRI_ITS ---
STUDY: MRI RIGHT ANKLE WITHOUT CONTRAST REASON FOR EXAM: Diabetic ulcer, abscess adjacent to the lateral malleolus. TECHNIQUE: Standardized fat and water weighted pulse sequences were obtained in all 3 orthogonal planes. COMPARISON: Radiographs 12/21/2018 and MRI images 08/29/2018. FINDINGS: There is edema in the subcutis adipose space. There is a fluid collection in the subcutis adipose space superficial to the lateral malleolus (T2 coronal images 14-16; T2 axial images 15-17) measuring 1.8 x 0.7 x 1.6 cm (AP x transverse x length) suggestive of an abscess. There is a small ganglion cyst dorsal to the navicular-cuneiform articulation as on the prior study (inversion recovery sagittal image 16). Normal posterior tibialis tendon. Normal flexor digitorum longus tendon. Normal flexor hallucis longus tendon. Normal peroneus longus and brevis tendons. Normal tibialis anterior tendon. Normal extensor hallucis longus tendon. Normal extensor digitorum longus tendons. Normal Achilles tendon and teno-osseous insertion. Normal plantar fascia. Normal plantar calcaneal tubercles. There is atrophy with fat replacement of the intrinsic muscles of the rearfoot. Normal distal tibiofibular syndesmotic ligamentous complex. Normal lateral ligamentous complex. Normal subtalar ligaments and sinus tarsi. Normal deltoid ligamentous complexes. There is enthesopathy of the medial malleolus. Normal plantar calcaneonavicular (spring) ligament. There is mild arthrosis with mild chondral thinning of the tibiotalar articulation (T1 sagittal image 13). Normal talar dome. Normal subtalar articulations. Normal talonavicular articulation. Normal calcaneocuboid articulation. There is neuropathic osteoarthropathy of the midfoot and second through fifth tarsometatarsal joints (inversion recovery sagittal images 8-19) as on the prior study. 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 There is an os trigonum. There is no bone edema of the distal fibula to indicate osteomyelitis. MRI/Lower Ext Joint Only (Routine) IMPRESSION: Soft tissue abscess adjacent to the lateral malleolus without MRI manifestations of osteomyelitis of the lateral malleolus. 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 Atrophy of the intrinsic muscles of the foot consistent with peripheral neuropathy. Mild tibiotalar arthrosis. Electronically Signed: Saqib Roberts MD at 12:12 EDT Tel , Service support ,
[2018-12-21] MEDS: Insulin Lispro 100 UNIT/ML INSULN.PEN SC ×2 (08:09→22:06)
[2018-12-21] MEDS: Insulin Lispro 100 UNIT/ML INSULN.PEN 20 UNIT SC ×3 (08:09→18:53)
[2018-12-21] MEDS: HYDROcodone Bitartrate/Apap 5/325 Tablet PO (08:10)
--- NOTE | 2018-12-21 08:14 | NURSING ---
there are no meds on unit for this pt besides her insulin and norco
[2018-12-21 08:20] LABS: Bedside Glucose 342 mg/dL (70-110)
[2018-12-21] MEDS: Morphine 2 MG/ML Syringe IV ×2 (08:36→13:35)
[2018-12-21] MEDS: Ascorbic Acid 500 MG Tablet PO ×2 (10:10→18:53)
[2018-12-21] MEDS: Gabapentin 800 MG Tablet PO ×2 (10:10→18:53)
[2018-12-21] MEDS: Enoxaparin 40 MG/0.4 ML Syringe SC (10:12)
[2018-12-21] MEDS: Pramipexole Di-HCl 1 MG Tablet 1.5 MG PO ×2 (10:12→21:49)
[2018-12-21] MEDS: Clopidogrel Bisulfate 75 MG Tablet PO (10:13)
[2018-12-21] MEDS: Escitalopram Oxalate 10 MG Tablet PO (10:13)
--- NOTE | 2018-12-21 10:40 | NURSING ---
rocephin has not been delivered to unit at this time
--- NOTE | 2018-12-21 10:43 | NURSING ---
wound photo: right lateral ankle
--- NOTE | 2018-12-21 10:44 | NEWVISION ---
wound photo: left lateral plantar foot
[2018-12-21 11:26] LABS: Bedside Glucose 225 mg/dL (70-110)
--- NOTE | 2018-12-21 12:55 | EKG12_ITS ---
Test Reason : PREOP Blood Pressure : / mmHG Vent. Rate : 085 BPM Atrial Rate : 085 BPM P-R Int : 154 ms QRS Dur : 082 ms QT Int : 374 ms P-R-T Axes : 053 020 026 degrees QTc Int : 445 ms Normal sinus rhythm Septal infarct , age undetermined Abnormal ECG When compared with ECG of 12-NOV-2018 06:25, Septal infarct is now Present Confirmed by SHIRA HA ([id number]), non linear editor JUSTINA KOWALSKI ([id number]) on 12/25/2018 5:11:22 PM Referred By: Ashely Barakat Confirmed By:SHIRA HA
[2018-12-21 13:33] LABS: International Normalized Ratio 1.2; Prothrombin Time (Protime)PT. 14.8 SECONDS (11.7-14.9)
[2018-12-21 13:34] LABS: Partial Thromboplast Time 37.7 Seconds (24.1-36.2)
[2018-12-21] MEDS: 0.9% NaCl Peripheral Flush Adult/Peds IV (13:36)
--- NOTE | 2018-12-21 13:46 | CASEMGMT ---
Addendum entered by Alida Blum 12/21/18 16:14: [facility] phone: [phone] Original Note: KELSIE IRELAND NOTE: Call received from Hiro @ [facility]. She states pt is currently active with them and is receiving long-term and PT services. [facility] resumption order placed. Delta MANLEY RN CM
--- NOTE | 2018-12-21 13:47 | PCM.HP.ID ---
Problem List (1) Diabetic foot ulcer associated with type 2 diabetes mellitus Status: Acute Qualifiers: Diabetes mellitus care home insulin use: with exterminator helper use Qualified Code(s): E11.621 - Type 2 diabetes mellitus with foot ulcer; L97.509 - Non-pressure chronic ulcer of other part of unspecified foot with unspecified severity; Z79.4 - [facility] (current) use of insulin Reason for Consult: foot infection Consulted by: Dr Perez History of Present Illness: The patient is a 53 year old F with DM, recurrent foot infections, presented with 3 days of progressive R lateral ankle pain, redness, swelling. No drainage, shallow scabbed ulcer. Mild chills. Had been on iv ceftriaxone until about a week ago for L foot osteo, cx with mSSE and strep at that time. Admitted here, started on vanc/levaquin after dose of clinda in ED. Redness improved. No n/v/d. MRI done this AM. Full ROS performed and neg except as noted above. - Medical History Past Medical History (Chronic Problems): Chronic Problems (Last Reviewed 09/28/18 @ 15:32 by Saravanan Jean Baptiste MD) CAD (coronary artery disease) (Chronic) HTN (hypertension) (Chronic) HLD (hyperlipidemia) (Chronic) Neuropathic pain (Chronic) GERD (gastroesophageal reflux disease) (Chronic) Hypomagnesemia (Chronic) Back pain, chronic (Chronic) Depression (Chronic) RLS (restless legs syndrome) (Chronic) Type II diabetes mellitus, uncontrolled (Chronic) Anxiety state (Chronic) Allergies/Adverse Reactions: Allergies oxycodone [From OxyContin] Allergy (Verified 12/20/18 23:10) Shortness of breath Penicillins Allergy (Verified 12/20/18 23:10) Shortness of breath Home Medications: Ambulatory Orders Medication Instructions Recorded Ascorbic Acid [Vitamin C] 500 mg PO BIDCM 09/20/18 Gabapentin [Neurontin] 800 mg PO TIDCM 09/20/18 Insulin Aspart [Novolog Flexpen] 20 units SUBCUT TIDCM 09/20/18 Insulin Glargine [Lantus SoloStar 30 units SUBCUT 0800 09/20/18 Pen] Ropinirole HCl [Requip] 3 mg PO BID 09/20/18 Atorvastatin Calcium [Lipitor] 80 mg PO QHS 09/23/18 Lisinopril [Zestril] 5 mg PO DAILY 09/23/18 Metoprolol Tartrate [Lopressor 12.5 mg PO BID 09/23/18 (beta kunal)] escitalopram 10 mg tablet 10 mg PO DAILY 09/28/18 promethazine 25 mg tablet 25 mg PO Q6H PRN 09/28/18 Insulin Lispro [Humalog KwikPen] See Protocol SQ ACHS insuln.pen 11/11/18 Mag Hydrox/Al Hydrox/Simeth 30 ml PO Q6H PRN PRN udc 11/11/18 [Mylanta II] Magnesium Hydroxide [Milk Of 30 ml PO DAILY PRN PRN udc 11/11/18 Magnesia] Clopidogrel Bisulfate [Plavix] 75 mg PO DAILY 12/21/18 - Social History SMOKING STATUS:: Never smoker Vital Signs Temp Pulse Resp BP Pulse Ox 98.4 F 84 18 89/44 L 96 12/21/18 13:28 12/21/18 13:28 12/21/18 13:28 12/21/18 13:28 12/21/18 13:28 Oxygen Delivery Method Room Air Weight: 84.538 kg Body Mass Index (BMI) 30.0 Finger Stick Blood Glucose 52 Laboratory Tests Past 24 Hrs 12/21/18 12/21/18 12/21/18 02:16 02:16 02:16 WBC 19.4 H RBC 4.26 Hgb 11.6 L Hct 35.8 L MCV 84.0 MCH 27.2 MCHC 32.4 RDW 14.2 RDW Differential 43.0 Plt Count 306 MPV 11.2 Immature Gran % (Auto) 0.200 Neut % (Auto) 88.9 H Lymph % (Auto) 5.1 L [place] % (Auto) 5.3 Eos % (Auto) 0.3 Baso % (Auto) 0.2 Absolute Neuts (auto) 17.2 H Absolute Lymphs (auto) 0.99 Total Counted Not Reportable ESR 54 H PT INR APTT Sodium 134 L Potassium 3.8 Chloride 103 Carbon Dioxide 23.0 Anion Gap 8 BUN 26 H Creatinine 1.13 H Estim Creat Clear Calc 53.90 Est GFR (MDRD) Af Amer 65 Est GFR (MDRD) Non-Af 53 L BUN/Creatinine Ratio 23.0 H Glucose 299 H Hemoglobin A1c Lactic Acid 2.1 H Calcium 8.8 Magnesium Total Bilirubin Direct Bilirubin AST ALT Alkaline Phosphatase C-React Prot Ext Range 38.10 H Total Protein Albumin 12/21/18 12/21/18 12/21/18 05:50 05:50 05:50 WBC 18.2 H RBC 3.56 L Hgb 9.5 L Hct 30.2 L MCV 84.8 MCH 26.7 L MCHC 31.5 L RDW 14.3 RDW Differential 43.0 Plt Count 282 MPV 11.3 Immature Gran % (Auto) 0.300 Neut % (Auto) 85.3 H Lymph % (Auto) 9.1 L [place] % (Auto) 4.8 Eos % (Auto) 0.3 Baso % (Auto) 0.2 Absolute Neuts (auto) 15.5 H Absolute Lymphs (auto) 1.65 Total Counted Not Reportable ESR PT INR APTT Sodium 134 L Potassium 3.9 Chloride 104 Carbon Dioxide 21.0 Anion Gap 9 BUN 25 H Creatinine 1.03 H Estim Creat Clear Calc 59.13 Est GFR (MDRD) Af Amer 72 Est GFR (MDRD) Non-Af 60 BUN/Creatinine Ratio 24.3 H Glucose 344 H Hemoglobin A1c 12.2 H Lactic Acid Calcium 7.8 L Magnesium 1.5 L Total Bilirubin Direct Bilirubin AST ALT Alkaline Phosphatase C-React Prot Ext Range Total Protein Albumin 12/21/18 12/21/18 12/21/18 06:25 13:15 13:15 WBC RBC Hgb Hct MCV MCH MCHC RDW RDW Differential Plt Count MPV Immature Gran % (Auto) Neut % (Auto) Lymph % (Auto) [place] % (Auto) Eos % (Auto) Baso % (Auto) Absolute Neuts (auto) Absolute Lymphs (auto) Total Counted ESR PT 14.8 INR 1.2 APTT 37.7 H Sodium Potassium Chloride Carbon Dioxide Anion Gap BUN Creatinine Estim Creat Clear Calc Est GFR (MDRD) Af Amer Est GFR (MDRD) Non-Af BUN/Creatinine Ratio Glucose Hemoglobin A1c Lactic Acid 1.4 Calcium Magnesium Total Bilirubin Pending Direct Bilirubin Pending AST Pending ALT Pending Alkaline Phosphatase Pending C-React Prot Ext Range Total Protein Pending Albumin Pending - Other Studies Radiology: [] reviewed Other Studies: [] Route of nutrition/ use of supplements: [] Nutritional Intake: [] IV Site: [] Tirado Catheter: [] - Physical Exam General: Alert, Oriented x3, Cooperative, No apparent distress HEENT: Atraumatic, PERRLA, EOMI Neck: Supple, No Nodes Lungs: Clear to auscultation, Normal air movement Cardiovascular: Regular rate, Regular Rhythm Abdomen: Soft, Non Tender, Non-Distended Extremities: Edema - mild BLE Skin: Ulcer/ Wound - on bilateral feet. R lateral ankle with 1-2cm dry ulcer, surrounding swelling and improving erythema IV Site: Peripheral, without edema Neurological: Cranial nerves II-XII grossly intact - Assessment/Plan Antibiotics: [] Assessment/Plan: [] Active and Suspected Problems (Last Reviewed 09/28/18 @ 15:32 by Saravanan Jean Baptiste MD) Severe sepsis (Acute) Wound of foot (Acute) R ankle infected ulcer causing severe sepsis- MRI does not show osteo. Wound care and podiatry to see. Will need abscess drained if possible. Cont vanc, change levaquin to ceftriaxone; has tolerated it well in the past. L foot infection appears to be resolved with healing ulcer. Elevated ESR. Lactate improving. Will follow, thank you.
[2018-12-21 13:50] LABS: AST(SGOT) 6 U/L (15-37); Alanine Aminotransfer ALT/SGPT 16 U/L (13-56); Albumin, Serum 2.7 g/dL (3.2-5.0); Alkaline Phosphatase 95 U/L (45-117); Bilirubin, Direct 0.07 mg/dL (0.00-0.30); Globulin 3.6 g/dL (2.2-4.2); Protein, Total 6.3 g/dL (6.4-8.2)
--- NOTE | 2018-12-21 14:33 | CASEMGMT ---
Social Work Note Physician updated this worker that pt is agreeable to [facility] at discharge. SW faxed referral and placed a call to Muna at [facility] and left her a message regarding referral. Plan: [facility] Tuesday pending acceptance Erika SALAZAR, 3D MODELER
[2018-12-21] MEDS: Vancomycin IV 1,000 MG/200 ML BAG 200 MG IV (14:46)
[2018-12-21 14:56] LABS: Bedside Glucose 160 mg/dL (70-110)
--- NOTE | 2018-12-21 15:01 | NURSING ---
report called to [facility]. daughter kyle called and updated at pt's request
--- NOTE | 2018-12-21 15:05 | CASEMGMT ---
Addendum entered by Alida Blum 12/21/18 15:44: This assessment occurred @ 1140. Original Note: RN CM COLLEGE BASKETBALL COACH CM to room to meet with patient for initial transition planning/care coordination assessment. RN BEKA introduced self and role at [facility]. Pt voices understanding and consents to assessment at this time. Pt resting in bed in no distress at this time. Pt is A/O at this time and answers all questions appropriately. Care providers, pharmacy, and demographics verified/updated at this time. PCP: Jeaneth Specialists: Darryl Allen Ofori--geographic information system analyst Preferred Pharmacy: [facility] Insurance: [employer], [employer] Prescription Benefit: Yes Living Will/HPOA: [facility] does not have LW or HCPOA . Interested in more information but [facility] does not want to talk with SW at this time to complete paperwork. Provided information on advanced directives and given Social Service rac card with number to call if chooses in the future to utilize [facility] social work for advanced directive completion. Educated patient that, if patient so chooses, can come back to [facility] and meet with a SW as an outpatient to complete health care advanced directives. Patient expresses understanding. LNOK: Daughter who lives with her and son who lives in [place] Living Arrangements: Daughter and 5-yr-old grandson live with her. Transportation: Daughter DME: has the following DME: Crutches, rollator, W/C, Glucometer and supplies. Has shower chair and BSC but does not use. Does not have oxygen, BIPAP/CPAP, or nebulizer. Pt states no need for further DME at this time. HHC/SNF: Was just recently @ [facility] in November. was only there for about 2 weeks and then she was discharged home with [facility]. Pt states the reason she returned home is because my daughter wanted me to come home. currently has C through [facility] a [facility] nurse comes weekly for dressing changes and that she does her own daily dressing changes. She states PT also comes once a week. Pt states she was getting IV atb's through [facility] but [facility], Insurance wouldn't pay for it anymore. Pt states [facility] was also managing her wound vac but that she no longer has a wound vac. Pt states she prefers to return home with [facility] but may consider returning back to [facility] depending on what she needs @ discharge. Pt states does not smoke or drink ETOH. CM to follow for any further discharge planning/needs. Pt voices no further concerns/needs at this time. Advised pt to ask for CM if any further questions/concerns/needs arise. Voices understanding. Pt's discharge plan/goal: Home w/HHC but states will consider SNF if needed. Delta LEEN RN CM
--- NOTE | 2018-12-21 16:26 | CASEMGMT ---
Social Work Note SW received message from Muna at [facility] stating she is unable to accept pt. SW to follow up with pt tomorrow to confirm discharge plans. Plan: SNF pending acceptance Erika Tobar MANAGER WILLOW, QUARANTINE INSPECTOR
--- NOTE | 2018-12-21 16:28 | RAD_ITS ---
STUDY: X-RAY - RIGHT ANKLE REASON FOR EXAM: Female, 53 years old. Ankle pain TECHNIQUE: 1 view(s) of the ankle. COMPARISON: None. FINDINGS: There is a single fluoroscopic image. This is a lateral view of the ankle showing tibia, fibula, talus and calcaneus and an overlying radiopaque metallic instrument. NO acute bony abnormalities are seen. RAD/Ankle 2 Views IMPRESSION: As above. Electronically Signed: Dave Abrams MD at 4:48 EDT , Service support ,
--- NOTE | 2018-12-21 16:39 | PCM.HOSP.N ---
Hospitalist Note Patient was seen and examined today, she was admitted early this morning with an infection in the soft tissues around her right lateral malleolus area. Patient is a poorly controlled type II diabetic who is noncompliant, her last reviewed hemoglobin A1c was 12.2. Patient lives with her daughter, it is unknown how much medical help her daughter is at home but I suspect her daughter does not provide much medical help for the patient. I talked to the patient today, she states she is willing to go to an extended care facility for a short period of time for rehab, I also talked with Dr. Allen (podiatry) who was in her room today and he told the patient he felt he needed to take the patient to surgery today for debridement of her right ankle area due to an abscess in this area and that she would need a wound VAC placed postop. He stated that there is no signs of osteomyelitis at this time. I talked to the patient about which senior care she would like to go to, she states she has been in [facility] before and would not object to going back there. She will undergo surgery this afternoon, I feel she is stable for surgery at this time. Patient had 1 stent inserted in September 2018 for coronary artery disease. I also talked with infectious diseases today about the patient. I spent some time today talking to the patient about how poorly her diabetes is controlled, there was not much conversation about how she manages her diabetes from the patient, I feel she is noncompliant with her medical care including her type 2 diabetes. Podiatry states that she has missed office appointments.
--- NOTE | 2018-12-21 16:46 | CCHN_ITS ---
Hospitalist Note Patient was seen and examined today, she was admitted early this morning with an infection in the soft tissues around her right lateral malleolus area. Patient is a poorly controlled type II diabetic who is noncompliant, her last reviewed hemoglobin A1c was 12.2. Patient lives with her daughter, it is unknown how much medical help her daughter is at home but I suspect her daughter does not provide much medical help for the patient. I talked to the patient today, she states she is willing to go to an extended care facility for a short period of time for rehab, I also talked with Dr. Allen (podiatry) who was in her room today and he told the patient he felt he needed to take the patient to surgery today for debridement of her right ankle area due to an abscess in this area and that she would need a wound VAC placed postop. He stated that there is no signs of osteomyelitis at this time. I talked to the patient about which fci she would like to go to, she states she has been in [facility] before and would not object to going back there. She will undergo surgery this afternoon, I feel she is stable for surgery at this time. Patient had 1 stent inserted in September 2018 for coronary artery disease. I also talked with infectious diseases today about the patient. I spent some time today talking to the patient about how poorly her diabetes is controlled, there was not much conversation about how she manages her diabetes from the patient, I feel she is noncompliant with her medical care including her type 2 diabetes. Podiatry states that she has missed office appointments.
--- NOTE | 2018-12-21 17:43 | PCM.OPRPT ---
Report of Operation Date of Procedure: 12/21/18 Pre-Operative Diagnosis: abscess, right ankle Post-Operative Diagnosis: abscess, right ankle Description of Surgical Findings:: prominent abscess, right anterior lateral ankle joint . abscess noted to extend to anterior lateral ankle/fibula Type of Anesthesia:: Local MAC Specimen's removed: wound culture to right ankle Estimated Blood Loss (mL): 40 ml Description of Procedure: Patient is a noncompliant patient with diabetes who has ulceration of b/l lower extremity. her left foot ulceration is progressing with treatment and nwb. unfortunately, she developed ulceration of right lateral ankle about 2 weeks ago. we attempted to get mri but patient did not follow thru with scheduling of mri. She was scheduled for follow-up last week but patient called and cancelled. in fact, she cancelled twice last week. she was last seen this past Tuesday and her ankle appeared stable. She apparently developed redness to her right ankle and presented to hospital where she was ultimately admitted. mri performed today shows abscess of right lateral ankle. there is no evidence of osteomyelitis on mri or xray. I discussed procedure with patient, that being I&D. I discussed risks of this procedure. the largest risk would be creating a wound that may require wound vac treatment. other risk include deep space infection, osteomyelitis, loss of leg. patient understands that she does have significant arthritis of ankle and history of charcot but this will not be corrected until her sugars are better controlled and there is no infection. patient informed that she will likely require wound vac at discharge. all questions answered and no guarantees expressed patient was transferred to the operating room and placed on the operating room table. she was placed under mac anesthesia and the right lower extremity was prepped and draped in usual aseptic technique. the right ankle lower extremity was injected with 1% lidocaine plain. Attention was directed to the right ankle. Using intra-op fluroscopy, incision was planned. incision was placed along the anterior lateral ankle. The incision was planned and corresponded with area of ulceration. An incision was placed along the distal fibula and extended thru the ulceration extending to the heel. careful dissection was performed to avoid any injury to sural nerve or tendinous structures. I dissected without use of tourniquet although tourniquet was applied, it was never inflated. Upon entering the subcutaneous tissue, there was large abscess that was expressed. This was cultured. all nonviable tissue was excised. I extended my incision proximally as well as distally. All nonviable tissue was excised. the entire ulceration was excised. Inspection of the anterior lateral ankle at site of abscess was further evaluated. There was no evidence of remaining abscess anterior laterally. I evaluated the posterior lateral compartment. I did not express any further abscess. there was no evidence of extension to ankle joint. The abscess was located just to anterior lateral ankle along distal fibula. After the abscess was evacuated, the entire incision was irrigated with 5000 cc of normal saline. all bleeding was controlled. the proximal and distal incision was closed with 2-0 prolene using simple interrupted technique. there is full thickness ulceration at site of prior ulceration. the ulceration measures 1.1 cm x 1.0 cm x 0.8 cm depth. The foot was then dressed with betadine soaked adaptic, 4x4 guaze, alison and abd/brando. all counts were correct at time of dressing application. patient will return to floor. will continue with antibiotics. will evaluate patient on pod #1. Will jana have nursing apply wound vac on pod #1. she will require wound vac at discharge. I would prefer she go to nursing facility as I do not trust that she will be compliant at home now with two ulcerations. - Complications none
[2018-12-21 18:26] LABS: Bedside Glucose 271 mg/dL (70-110)
--- NOTE | 2018-12-21 20:18 | PCM.CONS.GEN ---
Reason for Consult Date of Consultation: 12/21/18 Reason for Consultation: abscess, right ankle History of Present Illness: The patient is a 53 year old F currently admitted for infection of right ankle. Patient is a noncompliant female with diabetes who has ulcerations of b/l lower extremity. she has been followed by me and was recently seen this past Tuesday for evaluation of left foot ulceration and right ankle ulceration. She has ulceration of left foot that was treated several months ago with I&D and attempted IV antibiotics. She had been discharged to nursing facility but was discharged as she was noncompliant with care and leaving facility for extended hours without permission As a result, IV antibiotics were discontinued. Her ulceration of left foot has been followed and we are currently treating with offloading boot, nwb and srinivas. her ulceration of left foot has been improving. About 2 weeks ago, she developed blister to right lateral ankle. This developed rather quickly with no past injury. I ordered mri and one was ordered at [facility] but patient did not accept the scheduled appointment. she scheduled mri for this week. She was seen for this blister two weeks ago and was recommended betadine. She had an appointment scheduled with me last Tuesday but cancelled and rescheduled for last Tuesday. On of last week, she rescheduled for this past Tuesday. I saw patient this past tuesday and both feet appeared stable. Patient states that yesterday, her right leg started turning red and swollen. she presented to hospital at which time she was admitted for cellulitis of right ankle. Patient does complain of pain to right lateral ankle. Patient reports nausea. patient denies diarrhea and vomiting. Past Medical History Past Medical History (Chronic Problems): Chronic Problems (Last Reviewed 09/28/18 @ 15:32 by Saravanan Jean Baptiste MD) CAD (coronary artery disease) (Chronic) HTN (hypertension) (Chronic) HLD (hyperlipidemia) (Chronic) Neuropathic pain (Chronic) GERD (gastroesophageal reflux disease) (Chronic) Hypomagnesemia (Chronic) Back pain, chronic (Chronic) Depression (Chronic) RLS (restless legs syndrome) (Chronic) Type II diabetes mellitus, uncontrolled (Chronic) Anxiety state (Chronic) Medical History: Medical History (Last Reviewed 09/28/18 @ 15:32 by Saravanan Jean Baptiste MD) HLD (hyperlipidemia) (Chronic) E78.5 Allergies oxycodone [From OxyContin] Allergy (Verified 12/20/18 23:10) Shortness of breath Penicillins Allergy (Verified 12/20/18 23:10) Shortness of breath Home Medications: Ambulatory Orders Medication Instructions Recorded Ascorbic Acid [Vitamin C] 500 mg PO BIDCM 09/20/18 Gabapentin [Neurontin] 800 mg PO TIDCM 09/20/18 Insulin Aspart [Novolog Flexpen] 20 units SUBCUT TIDCM 09/20/18 Insulin Glargine [Lantus SoloStar 30 units SUBCUT 0800 09/20/18 Pen] Ropinirole HCl [Requip] 3 mg PO BID 09/20/18 Atorvastatin Calcium [Lipitor] 80 mg PO QHS 09/23/18 Lisinopril [Zestril] 5 mg PO DAILY 09/23/18 Metoprolol Tartrate [Lopressor 12.5 mg PO BID 09/23/18 (beta kunal)] escitalopram 10 mg tablet 10 mg PO DAILY 09/28/18 promethazine 25 mg tablet 25 mg PO Q6H PRN 09/28/18 Insulin Lispro [Humalog KwikPen] See Protocol SQ ACHS insuln.pen 11/11/18 Mag Hydrox/Al Hydrox/Simeth 30 ml PO Q6H PRN PRN udc 11/11/18 [Mylanta II] Magnesium Hydroxide [Milk Of 30 ml PO DAILY PRN PRN udc 11/11/18 Magnesia] Clopidogrel Bisulfate [Plavix] 75 mg PO DAILY 12/21/18 Surgical History: - - Severel R foot toe ambuations and I+Ds, BL carpal tunnel surgery 1994, right shoulder surgery in 1994, section x2, most recently LLE I+D. Psychiatric History: Anxiety, Depression C D STRIPPER History: No pertinent C D STRIPPER history Lives: Spouse/ Significant Other Smoking Status: Never smoker Tobacco Use: Non-smoker Alcohol: None Drugs: None - *Family History Maternal History Items: Cancer - Patient had a brother who had testicular cancer; and later cancer in his stomach., Diabetes, Hypertension, - - Her mother at the age of 67 to a blood clot to the brain. She had had multiple strokes preceding that. Patient had 3 brothers who had bypass surgery in their 50s. Paternal History Items: - - Patient states her father when she was 5 years old, denies known medical history, denies known cardiac history. Sibling History Items: - - She has one brother who is secondary to cancer and she does not know what kind of cancer he had. She also has 3 brothers with a history of cardiovascular disease, stents and coronary artery bypass grafting. Patient Problems: Active and Suspected Problems (Last Reviewed 09/28/18 @ 15:32 by Saravanan Jean Baptiste MD) Severe sepsis (Acute) Wound of foot (Acute) Objective: Patient is alert and orientated x 3. patient does not appear in any distress. vascular: DP and PT pulses are palpable to b/l lower extremity. CFT is less than 5 seconds. Skin temperature is warm to warm. Derm: there is superficial granular ulceration of left lateral foot that appears to be progressing nicely without infection. there is no evidence of bone exposed to left foot. there is ulceration to lateral aspect of right ankle. there is significant vinicius-wound erythema with concerning abscess. there is drainage expressed from ulceration. m/s: there is swelling of right anterior lateral ankle. MRI reviewed of right ankle. there is abscess to anterior lateral ankle that is continuous with ulceration. - Physical Exam Vital Signs Temp Pulse Resp BP Pulse Ox 98.7 F 91 16 101/60 97 12/21/18 18:44 12/21/18 18:44 12/21/18 18:44 12/21/18 18:44 12/21/18 18:44 Oxygen Delivery Method Room Air Weight: 84.538 kg Body Mass Index (BMI) 30.0 Finger Stick Blood Glucose 271 Intake and Output for Last 24 Hours 12/19/18 12/20/18 12/21/18 23:59 23:59 23:59 Intake Total 3065 / 3065 Output Total 500 / 500 Balance 2565 / 2565 Laboratory Tests Past 24 Hrs 12/21/18 12/21/18 12/21/18 02:16 02:16 02:16 WBC 19.4 H RBC 4.26 Hgb 11.6 L Hct 35.8 L MCV 84.0 MCH 27.2 MCHC 32.4 RDW 14.2 RDW Differential 43.0 Plt Count 306 MPV 11.2 Immature Gran % (Auto) 0.200 Neut % (Auto) 88.9 H Lymph % (Auto) 5.1 L [place] % (Auto) 5.3 Eos % (Auto) 0.3 Baso % (Auto) 0.2 Absolute Neuts (auto) 17.2 H Absolute Lymphs (auto) 0.99 Total Counted Not Reportable ESR 54 H PT INR APTT Sodium 134 L Potassium 3.8 Chloride 103 Carbon Dioxide 23.0 Anion Gap 8 BUN 26 H Creatinine 1.13 H Estim Creat Clear Calc 53.90 Est GFR (MDRD) Af Amer 65 Est GFR (MDRD) Non-Af 53 L BUN/Creatinine Ratio 23.0 H Glucose 299 H Hemoglobin A1c Lactic Acid 2.1 H Calcium 8.8 Magnesium Total Bilirubin Direct Bilirubin AST ALT Alkaline Phosphatase C-React Prot Ext Range 38.10 H Total Protein Albumin Globulin 12/21/18 12/21/18 12/21/18 05:50 05:50 05:50 WBC 18.2 H RBC 3.56 L Hgb 9.5 L Hct 30.2 L MCV 84.8 MCH 26.7 L MCHC 31.5 L RDW 14.3 RDW Differential 43.0 Plt Count 282 MPV 11.3 Immature Gran % (Auto) 0.300 Neut % (Auto) 85.3 H Lymph % (Auto) 9.1 L [place] % (Auto) 4.8 Eos % (Auto) 0.3 Baso % (Auto) 0.2 Absolute Neuts (auto) 15.5 H Absolute Lymphs (auto) 1.65 Total Counted Not Reportable ESR PT INR APTT Sodium 134 L Potassium 3.9 Chloride 104 Carbon Dioxide 21.0 Anion Gap 9 BUN 25 H Creatinine 1.03 H Estim Creat Clear Calc 59.13 Est GFR (MDRD) Af Amer 72 Est GFR (MDRD) Non-Af 60 BUN/Creatinine Ratio 24.3 H Glucose 344 H Hemoglobin A1c 12.2 H Lactic Acid Calcium 7.8 L Magnesium 1.5 L Total Bilirubin Direct Bilirubin AST ALT Alkaline Phosphatase C-React Prot Ext Range Total Protein Albumin Globulin 12/21/18 12/21/18 12/21/18 06:25 13:15 13:15 WBC RBC Hgb Hct MCV MCH MCHC RDW RDW Differential Plt Count MPV Immature Gran % (Auto) Neut % (Auto) Lymph % (Auto) [place] % (Auto) Eos % (Auto) Baso % (Auto) Absolute Neuts (auto) Absolute Lymphs (auto) Total Counted ESR PT 14.8 INR 1.2 APTT 37.7 H Sodium Potassium Chloride Carbon Dioxide Anion Gap BUN Creatinine Estim Creat Clear Calc Est GFR (MDRD) Af Amer Est GFR (MDRD) Non-Af BUN/Creatinine Ratio Glucose Hemoglobin A1c Lactic Acid 1.4 Calcium Magnesium Total Bilirubin 0.20 Direct Bilirubin 0.07 AST 6 L ALT 16 Alkaline Phosphatase 95 C-React Prot Ext Range Total Protein 6.3 L Albumin 2.7 L Globulin 3.6 POC Glucose 12/21/18 12/21/18 12/21/18 18:20 14:44 11:16 POC Glucose 271 H 160 H 225 H 12/21/18 07:57 POC Glucose 342 H Assessment/Plan All Active Problems (Last Reviewed 09/28/18 @ 15:32 by Saravanan Jean Baptiste MD) Chest pain (Acute) Osteomyelitis (Acute) Severe sepsis (Acute) Wound of foot (Acute) NSTEMI (non-ST elevated myocardial infarction) (Resolved) Diabetic foot ulcer associated with type 2 diabetes mellitus (Acute) Patient was examined and informed of current findings. this patient has cellulitis and abscess of right anterior lateral ankle. She needs I&D. There does not appear to be any evidence of osteomyelitis. I discussed the need for I&D and she is agreeable to this. Due to the existing ulceration and skin void, I have informed patient that it is likely that I will not be able to achieve closure and will require wound vac upon discharge. I have discussed risks not limited to infection, pain, swelling, bleeding, deep space infection, abscess, osteomyelitis, loss of leg. I again informed patient that she will likely require wound vac at discharge. this patient is very noncompliant. in addition to noncompliance, she has no control of her sugars. if she does not take better control of her diabetes, she is at significant risk of loss of leg and even . her left leg does show improvement. in fact, it appears better than it did earlier this week. I will continue with srinivas and nwb to left foot. I suspect being in hospital and staying off her foot will allow this ulceration to progress towards healing. will plan for I&D this evening. will consult nursing on pod #1 for wound vac application. she will require wound vac at discharge continue with antibiotics per id.
[2018-12-21] MEDS: Atorvastatin Calcium 80 MG Tablet PO (21:49)
[2018-12-21] MEDS: Metoprolol Tartrate 25 MG Tablet 12.5 MG PO (21:50)
[2018-12-21 22:05] LABS: Bedside Glucose 256 mg/dL (70-110)
[2018-12-22] VITALS (8 sets, daily range): BP systolic 116–141; BP diastolic 56–76; PULSE 84–108; RESP 16–18; TEMP 36.8–37.5; O2SAT 94–99
[2018-12-22] MEDS: 0.9% Normal Saline 1,000 ML 125 ML IV ×2 (02:25→14:34)
[2018-12-22] MEDS: Acetaminophen 325 MG Tablet 650 MG PO (02:31)
[2018-12-22] MEDS: Vancomycin IV 1,000 MG/200 ML BAG 200 MG IV ×2 (02:39→16:30)
[2018-12-22 06:56] LABS: Bedside Glucose 323 mg/dL (70-110)
--- NOTE | 2018-12-22 07:13 | PCM.PN.SRG ---
Patient Problems: Active and Suspected Problems (Last Reviewed 09/28/18 @ 15:32 by Saravanan Jean Baptiste MD) Severe sepsis (Acute) Wound of foot (Acute) Subjective: Patient seen at bedside this morning with Tiffany Stubbs RN. Patient denies n/v/f/c. patient denies pain to b/l lower extremity. she has no other complaints. Objective: patient is alert and orientated x 3. she does not appear in any distress. Vascular: DP and PT pulses are palpable to b/l lower extremity. CFT is brisk. Skin temperature is warm to warm. Erythema that was present to right lower extremity is much improved. Derm: there is full thickness ulceration to anterior lateral aspect of right ankle. the ulceration measures 1.1 cm x 1.0 cm x 0.8 cm. there is no drainage on exam today. The redness to right lateral leg is improved. ulceration has mostly granular appearance. there is some evidence of separation of dermis along the lateral aspect of right ankle just lateral to incision. there is noninfected ulceration of left foot. the ulceration has granular base without exposed tendon or bone. M/S: ROM of right foot and ankle is full. MMT is 5/5 for plantarflexion, dorsiflexion, inversion and eversion to right ankle. there is no calf pain b/l. - Physical Exam Vital Signs Temp Pulse Resp BP Pulse Ox 99.5 F H 93 16 116/56 L 99 12/22/18 02:00 12/22/18 06:00 12/22/18 06:00 12/22/18 02:00 12/22/18 02:00 Oxygen Delivery Method Room Air Weight: 84.538 kg Body Mass Index (BMI) 30.0 Finger Stick Blood Glucose 271 Intake and Output for Last 24 Hours 12/20/18 12/21/18 12/22/18 23:59 23:59 23:59 Intake Total 3704 / 3704 977 / 977 Output Total 900 / 900 Balance 2804 / 2804 977 / 977 Laboratory Tests Past 24 Hrs 12/21/18 12/21/18 12/21/18 05:50 13:15 13:15 PT 14.8 INR 1.2 APTT 37.7 H Hemoglobin A1c 12.2 H Total Bilirubin 0.20 Direct Bilirubin 0.07 AST 6 L ALT 16 Alkaline Phosphatase 95 Total Protein 6.3 L Albumin 2.7 L Globulin 3.6 POC Glucose 12/22/18 12/21/18 12/21/18 06:51 21:58 18:20 POC Glucose 323 H 256 H 271 H 12/21/18 12/21/18 12/21/18 14:44 11:16 07:57 POC Glucose 160 H 225 H 342 H Medical Necessity - Tobacco Use Smoking Status: Never smoker Tobacco Use: Non-smoker Assessment/Plan All Active Problems (Last Reviewed 09/28/18 @ 15:32 by Saravanan Jean Baptiste MD) Chest pain (Acute) Osteomyelitis (Acute) Severe sepsis (Acute) Wound of foot (Acute) NSTEMI (non-ST elevated myocardial infarction) (Resolved) Diabetic foot ulcer associated with type 2 diabetes mellitus (Acute) Patient was examined in presence of nursing staff the right ankle looks much better today. the redness is improved, there is no drainage of right leg, pain is improved. My plan was to apply wound vac to right leg but on exam today, there is some separation of dermis likely from swelling and severity of infection prior to I&D. I am going to hold on wound vac application today. I will dress wound with betadine and aquacel. once the blistering/maceration improves, she will likely require wound vac. will defer antibiotics to ID. I will discuss with ID given the location of abscess relative bone and tendon on length of antibiotics required. The left foot ulceration appears stable. srinivas will be applied to left foot. continue nwb. Weightbearing status: nwb left foot with boot and crutches. partial weightbearing to right heel with surgical shoe. disposition: recommend she stay in hospital until cultures are final and antibiotics can be arranged. prefer rehab placement. Patient informed that if she does not become more compliant with care not only regarding her diabetes but her foot ulcerations, she is at high risk of amputation.
--- NOTE | 2018-12-22 07:29 | NURSING ---
wound photo: right lateral ankle
[2018-12-22] MEDS: Gabapentin 800 MG Tablet PO ×2 (08:24→18:12)
[2018-12-22] MEDS: Ascorbic Acid 500 MG Tablet PO ×2 (08:24→18:25)
[2018-12-22] MEDS: Insulin Lispro 100 UNIT/ML INSULN.PEN SC ×3 (08:26→18:11)
[2018-12-22] MEDS: Insulin Lispro 100 UNIT/ML INSULN.PEN 20 UNIT SC ×2 (08:27→18:11)
[2018-12-22] MEDS: Pramipexole Di-HCl 1 MG Tablet 1.5 MG PO (09:27)
[2018-12-22] MEDS: Enoxaparin 40 MG/0.4 ML Syringe SC (09:28)
[2018-12-22] MEDS: Clopidogrel Bisulfate 75 MG Tablet PO (09:28)
[2018-12-22] MEDS: Lisinopril 5 MG Tablet PO (09:28)
[2018-12-22] MEDS: Escitalopram Oxalate 10 MG Tablet PO (09:29)
[2018-12-22] MEDS: Metoprolol Tartrate 25 MG Tablet 12.5 MG PO (09:29)
[2018-12-22] MEDS: HYDROcodone Bitartrate/Apap 5/325 Tablet PO (09:30)
[2018-12-22] MEDS: Ondansetron 4 MG/2 ML Vial IV ×2 (09:32→18:10)
--- NOTE | 2018-12-22 09:51 | CASEMGMT ---
Social Work Note SW met with pt and updated that [facility] is unable to accept. Pt asked about TCU. SW explained that pt is in copay days under Medicare and TCU doesn't accept Medicaid so pt would be responsible for copay. SW explained to pt that if she goes to a different SNF then Medicaid would cover the copay that Medicare. Pt states I will have to think about it. SW provided pt with list of area SNF and encouraged her to review list and then this worker will check back with pt later today. Pt states understand. Plan: SNF pending acceptance Erika Tobar MANUFACTURING PLANT TECHNICIAN, CEMENT BASED MATERIALS PUMP TENDER
--- NOTE | 2018-12-22 10:28 | NURSING ---
0730-DR MCCORMICKKE IN ROOM WITH JERRI AND RT ANKLE OPEN AREA IRRIGATED AND REDRESSED. PT YOVANA WELL. MYLA WRAP ON AND DRSG MAINTAINED.
[2018-12-22 10:40] LABS: Bedside Glucose 245 mg/dL (70-110)
[2018-12-22 12:05] LABS: Bedside Glucose 166 mg/dL (70-110)
--- NOTE | 2018-12-22 12:48 | CASEMGMT ---
Addendum entered by Erika Tobar 12/22/18 15:25: SW spoke with Samantha at [facility] and they are able to accept pt Tuesday. Plan: [facility] Tuesday. Green sheet on chart. SW completed convalescent 7000 in HENS. Original on pt's chart. Original Note: Social Work Note SW back in to speak with pt regarding SNF. Pt is agreeable to [facility]. LUCRETIA spoke with Josie at [facility] who states she has female beds available and will review referral. SW faxed referral to [facility]. Plan: [facility] pending acceptance Erika Tobar WORKERS COMPENSATION ADMINISTRATOR, POLISHING WHEEL REPAIRER
--- NOTE | 2018-12-22 13:35 | PN.ID_ITS ---
Patient Problems: Active and Suspected Problems (Last Reviewed 09/28/18 @ 15:32 by Saravanan Jean Baptiste MD) Severe sepsis (Acute) Wound of foot (Acute) Subjective: Feeling ok, pain controlled, no fever - Physical Exam General: Alert, Cooperative, No apparent distress Lungs: Clear to auscultation, Normal air movement Cardiovascular: Regular rate, Regular Rhythm Abdomen: Soft, Non Tender, Non-Distended Skin: Ulcer/ Wound - wrapped R ankle Vital Signs Temp Pulse Resp BP Pulse Ox 98.2 F 97 18 123/61 H 94 12/22/18 08:00 12/22/18 09:29 12/22/18 08:00 12/22/18 09:29 12/22/18 08:00 Oxygen Delivery Method Room Air Weight: 84.538 kg Body Mass Index (BMI) 30.0 Finger Stick Blood Glucose 271 Intake and Output for Last 24 Hours 12/20/18 12/21/18 12/22/18 23:59 23:59 23:59 Intake Total 3704 / 3704 1964 / 1964 Output Total 900 / 900 900 / 900 Balance 2804 / 2804 1064 / 1064 Microbiology Past 72 Hours 12/21/18 16:44 Wound Culture - Preliminary Biopsy - Ankle Staphylococcus aureus Laboratory Tests Past 24 Hrs 12/21/18 12/21/18 13:15 13:15 PT 14.8 INR 1.2 APTT 37.7 H Total Bilirubin 0.20 Direct Bilirubin 0.07 AST 6 L ALT 16 Alkaline Phosphatase 95 Total Protein 6.3 L Albumin 2.7 L Globulin 3.6 POC Glucose 12/22/18 12/22/18 12/22/18 11:59 10:35 06:51 POC Glucose 166 H 245 H 323 H 12/21/18 12/21/18 12/21/18 21:58 18:20 14:44 POC Glucose 256 H 271 H 160 H Medical Necessity - Tobacco Use Smoking Status: Never smoker Tobacco Use: Non-smoker Route of nutrition/ use of supplements: [] Nutritional Intake: [] IV Site: [] Tirado Catheter: [] - Assessment/Plan Antibiotics: [] Assessment/Plan: [] Active and Suspected Problems (Last Reviewed 09/28/18 @ 15:32 by Saravanan Jean Baptiste MD) Severe sepsis (Acute) Wound of foot (Acute) R ankle MSSA abscess causing severe sepsis- MRI does not show osteo. Taken to OR 12/[address] Allen for I&D. Cx now with staph aureus. On vanc/ ceftriaxone. No joint involvement seen. May be candidate for oral abx, plan on 10 day total course. Will follow
[2018-12-22 15:32] LABS: Vancomycin, Trough Level 10.3 ug/mL (5.0-15.0)
[2018-12-22] MEDS: proMETHazine 25 MG/ML Syringe 6.25 MG IV ×2 (16:30→22:09)
--- NOTE | 2018-12-22 16:57 | PCM.RX.CS ---
Consult Pharmacy has been consulted to manage selected antiobiotic: Vancomycin Type of Consult: Follow-up Suspected Infection: Sepsis Prior Doses of Antibiotics Received/Current Regimen: Currently on 1gm iv q12h Labs: Sodium 134 mmol/L (136-145) L 12/21/18 05:50 Potassium 3.9 mmol/L (3.5-5.1) 12/21/18 05:50 Chloride 104 mmol/L (98-107) 12/21/18 05:50 Carbon Dioxide 21.0 mmol/L (21.0-32.0) 12/21/18 05:50 Anion Gap 9 (5-15) 12/21/18 05:50 BUN 25 mg/dL (7-18) H 12/21/18 05:50 Creatinine 1.03 mg/dL (0.55-1.02) H 12/21/18 05:50 Est GFR (MDRD) Af Amer 72 mL/min (>60) 12/21/18 05:50 Est GFR (MDRD) Non-Af 60 mL/min (>60) 12/21/18 05:50 BUN/Creatinine Ratio 24.3 RATIO (10-20) H 12/21/18 05:50 Glucose 344 mg/dL (74-106) H 12/21/18 05:50 Vancomycin Trough 10.3 ug/mL (5.0-15.0) 12/22/18 14:27 Microbiology: Microbiology 12/21/18 16:44 Biopsy - Ankle Gram Stain - Final 12/21/18 16:44 Biopsy - Ankle Wound Culture - Preliminary Staphylococcus aureus Weight used for dosin.5 kg Estimated Creatinine Clearance: ~59ml/min Goal Trough: 15-20 mcg/mL Pharmacy Plan for Drug Dosing: Trough level of 12.22.18 was 10.3. Will increase dose to 1250mg iv q12h with trough goal of 15-20mcg/ml. Renal status reviewed. New trough level ordered for 12.24.18 before 4th dose of new regimen. Pharmacy Service will continue to monitor and adjust dosing as required. Follow-Up Labs: Trough Vancomycin - 12.24.18 @1530 before 1600 dose
[2018-12-22 17:30] LABS: Bedside Glucose 186 mg/dL (70-110)
--- NOTE | 2018-12-22 19:18 | PCM.PROGNOTE ---
Patient Problems: Active and Suspected Problems (Last Reviewed 09/28/18 @ 15:32 by Saravanan Jean Baptiste MD) Severe sepsis (Acute) Wound of foot (Acute) Subjective: She was seen and examined today, I had a discussion with her about going to an extended care facility for postop care and rehab, initially she was opposed to this but later on she talked with pediatric social worker and agreed to go to a [facility]. Patient's blood sugars seem to be overall in better control. Patient's wound is growing out staph. Sensitivities for the staph are to follow. - Physical Exam General: Alert, Oriented x3, Cooperative, No apparent distress, Well developed HEENT: Atraumatic, PERRLA, EOMI, Normocephalic Oral: Moist Mucosa Neck: Supple, No Nuchal Rigidity, Trachea Midline, Thyroid Normal Size and Texture Lungs: Clear to auscultation, Normal air movement, No rhonchi, No wheeze, No rales Cardiovascular: Regular rate, Regular Rhythm, Normal S1, Normal S2, No murmurs, No Ectopic Activity Abdomen: Bowel Sounds Present, Soft, Non Tender, Non-Distended Extremities: No clubbing, No cyanosis, Capillary Refill Less than 3 Seconds Skin: No rashes, No breakdown Neurological: Cranial nerves II-XII grossly intact, Neuro grossly intact, Sensory exam intact to light touch and pain, Coordination normal Psych/Mental Status: Normal Affect, Appropriate, Alert and oriented to time, place, person, mood and affect Vital Signs Temp Pulse Resp BP Pulse Ox 98.2 F 97 18 123/61 H 94 12/22/18 08:00 12/22/18 09:29 12/22/18 08:00 12/22/18 09:29 12/22/18 16:10 Oxygen Delivery Method Room Air Weight: 84.538 kg Body Mass Index (BMI) 30.0 Finger Stick Blood Glucose 271 Intake and Output for Last 24 Hours 12/20/18 12/21/18 12/22/18 23:59 23:59 23:59 Intake Total 3704 / 3704 3881 / 3881 Output Total 900 / 900 1850 / 1850 Balance 2804 / 2804 203 / 203 Microbiology Past 72 Hours 12/21/18 16:44 Gram Stain - Final Biopsy - Ankle Wound Culture - Preliminary Staphylococcus aureus Laboratory Tests Past 24 Hrs 12/22/18 14:27 Vancomycin Trough 10.3 POC Glucose 12/22/18 12/22/18 12/22/18 17:25 11:59 10:35 POC Glucose 186 H 166 H 245 H 12/22/18 12/21/18 06:51 21:58 POC Glucose 323 H 256 H Medical Necessity - Tobacco Use Smoking Status: Never smoker Tobacco Use: Non-smoker Assessment/Plan All Active Problems (Last Reviewed 09/28/18 @ 15:32 by Saravanan Jean Baptiste MD) Chest pain (Resolved) Osteomyelitis (Resolved) Severe sepsis (Acute) Wound of foot (Acute) NSTEMI (non-ST elevated myocardial infarction) (Resolved) Diabetic foot ulcer associated with type 2 diabetes mellitus (Acute) #1 severe sepsis secondary to staph aureus due to right foot wound secondary to neuropathy from type 2 diabetes-continue antibiotic coverage per infectious diseases #2 abscess right ankle tissue secondary to staph aureus, postop day #1 I&D right ankle area-sensitivities are to follow #3 uncontrolled type 2 diabetes secondary to long-standing noncompliance with medical regimen-I told the patient was important for her to go to a retirement facility so that her blood sugars could be monitored and this would ensure the best healing of her wound. #4 coronary artery disease-stable #5 hypertension #6 hyperlipidemia #7 chronic kidney disease stage III secondary to type 2 diabetes #8 anxiety disorder #9 restless leg syndrome We are waiting approval for patient to be transferred to a retirement facility Code Visit Inpatient E&M: 93545 Subs Hosp L2
--- NOTE | 2018-12-22 19:22 | PN_ITS ---
Patient Problems: Active and Suspected Problems (Last Reviewed 09/28/18 @ 15:32 by Saravanan Jean Baptiste MD) Severe sepsis (Acute) Wound of foot (Acute) Subjective: She was seen and examined today, I had a discussion with her about going to an extended care facility for postop care and rehab, initially she was opposed to this but later on she talked with social science teacher and agreed to go to a care home. Patient's blood sugars seem to be overall in better control. Patient's wound is growing out staph. Sensitivities for the staph are to follow. - Physical Exam General: Alert, Oriented x3, Cooperative, No apparent distress, Well developed HEENT: Atraumatic, PERRLA, EOMI, Normocephalic Oral: Moist Mucosa Neck: Supple, No Nuchal Rigidity, Trachea Midline, Thyroid Normal Size and Texture Lungs: Clear to auscultation, Normal air movement, No rhonchi, No wheeze, No rales Cardiovascular: Regular rate, Regular Rhythm, Normal S1, Normal S2, No murmurs, No Ectopic Activity Abdomen: Bowel Sounds Present, Soft, Non Tender, Non-Distended Extremities: No clubbing, No cyanosis, Capillary Refill Less than 3 Seconds Skin: No rashes, No breakdown Neurological: Cranial nerves II-XII grossly intact, Neuro grossly intact, Sensory exam intact to light touch and pain, Coordination normal Psych/Mental Status: Normal Affect, Appropriate, Alert and oriented to time, place, person, mood and affect Vital Signs Temp Pulse Resp BP Pulse Ox 98.2 F 97 18 123/61 H 94 12/22/18 08:00 12/22/18 09:29 12/22/18 08:00 12/22/18 09:29 12/22/18 16:10 Oxygen Delivery Method Room Air Weight: 84.538 kg Body Mass Index (BMI) 30.0 Finger Stick Blood Glucose 271 Intake and Output for Last 24 Hours 12/20/18 12/21/18 12/22/18 23:59 23:59 23:59 Intake Total 3704 / 3704 3881 / 3881 Output Total 900 / 900 1850 / 1850 Balance 2804 / 2804 203 / 203 Microbiology Past 72 Hours 12/21/18 16:44 Gram Stain - Final Biopsy - Ankle Wound Culture - Preliminary Staphylococcus aureus Laboratory Tests Past 24 Hrs 12/22/18 14:27 Vancomycin Trough 10.3 POC Glucose 12/22/18 12/22/18 12/22/18 17:25 11:59 10:35 POC Glucose 186 H 166 H 245 H 12/22/18 12/21/18 06:51 21:58 POC Glucose 323 H 256 H Medical Necessity - Tobacco Use Smoking Status: Never smoker Tobacco Use: Non-smoker Assessment/Plan All Active Problems (Last Reviewed 09/28/18 @ 15:32 by Saravanan Jean Baptiste MD) Chest pain (Resolved) Osteomyelitis (Resolved) Severe sepsis (Acute) Wound of foot (Acute) NSTEMI (non-ST elevated myocardial infarction) (Resolved) Diabetic foot ulcer associated with type 2 diabetes mellitus (Acute) #1 severe sepsis secondary to staph aureus due to right foot wound secondary to neuropathy from type 2 diabetes-continue antibiotic coverage per infectious diseases #2 abscess right ankle tissue secondary to staph aureus, postop day #1 I&D right ankle area-sensitivities are to follow #3 uncontrolled type 2 diabetes secondary to long-standing noncompliance with medical regimen-I told the patient was important for her to go to a half-way facility so that her blood sugars could be monitored and this would ensure the best healing of her wound. #4 coronary artery disease-stable #5 hypertension #6 hyperlipidemia #7 chronic kidney disease stage III secondary to type 2 diabetes #8 anxiety disorder #9 restless leg syndrome We are waiting approval for patient to be transferred to a half-way facility Code Visit Inpatient E&M: 94838 Subs Hosp L2
[2018-12-22 22:20] LABS: Bedside Glucose 118 mg/dL (70-110)
[2018-12-23] VITALS (11 sets, daily range): BP systolic 113–150; BP diastolic 61–87; PULSE 75–101; RESP 14–18; TEMP 36.7–37.1; O2SAT 94–100
[2018-12-23] MEDS: HYDROcodone Bitartrate/Apap 5/325 Tablet PO ×3 (02:08→20:20)
[2018-12-23] MEDS: 0.9% Normal Saline 1,000 ML 125 ML IV ×2 (03:07→14:12)
[2018-12-23 06:40] LABS: Bedside Glucose 87 mg/dL (70-110)
--- NOTE | 2018-12-23 07:58 | PN.SURG_ITS ---
Patient Problems: Active and Suspected Problems (Last Reviewed 09/28/18 @ 15:32 by Saravanan Jean Baptiste MD) Severe sepsis (Acute) Wound of foot (Acute) Subjective: patient is a noncomliant female with poorly controlled diabetes admitted for severe sepsis stemming from abscess of right ankle. she is 2 days post-op from incision and drainage. patient denies pain to b/l lower extremity. she does complain of calf pain of right lower extremity. she denies n/v/f/c. of note, nursing staff informs me that patient has family members bringing her outside foot. patient had taco yao on evening. she has bottle of soda at bedside but it is not open at this time. Objective: patient is alert and orientated x 3. she does not appear in any distress. right lower extremity has full thickness wound with periwound maceration and peeling of dermis. The redness that was previously present prior to surgery is now resolved. there is no drainage present to right lower extremity ulceration. There is full thickness wound that measures 1.1 cm x 1.0 cm x 0.8 cm and there is undermining proximally, distally, medially and laterally. left foot does have ulceration that is granular, superficial and free of infection. ulceration of left foot continues to heal. wound culture of right ankle now staph aureus. - Physical Exam Vital Signs Temp Pulse Resp BP Pulse Ox 98.8 F 92 16 125/68 H 99 12/23/18 02:08 12/23/18 02:08 12/23/18 02:08 12/23/18 02:08 12/23/18 02:08 Oxygen Delivery Method Room Air Weight: 84.538 kg Body Mass Index (BMI) 30.0 Finger Stick Blood Glucose 271 Intake and Output for Last 24 Hours 12/21/18 12/22/18 12/23/18 23:59 23:59 23:59 Intake Total 3704 / 3704 3881 / 3881 1388 / 1388 Output Total 900 / 900 1850 / 1850 Balance 2804 / 2804 2031 / 2031 1388 / 1388 Microbiology Past 72 Hours 12/21/18 16:44 Gram Stain - Final Biopsy - Ankle Wound Culture - Preliminary Staphylococcus aureus Laboratory Tests Past 24 Hrs 12/22/18 14:27 Vancomycin Trough 10.3 POC Glucose 12/23/18 12/22/1812/22/19 06:32 22:11 17:25 POC Glucose 87 118 H 186 H 12/22/18 12/22/18 11:59 10:35 POC Glucose 166 H 245 H Medical Necessity - Tobacco Use Smoking Status: Never smoker Tobacco Use: Non-smoker Assessment/Plan All Active Problems (Last Reviewed 09/28/18 @ 15:32 by Saravanan Jean Baptiste MD) Chest pain (Resolved) Osteomyelitis (Resolved) Severe sepsis (Acute) Wound of foot (Acute) NSTEMI (non-ST elevated myocardial infarction) (Resolved) Diabetic foot ulcer associated with type 2 diabetes mellitus (Acute) patient is a NONCOMPLIANT female with poorly controlled diabetes now with b/l lower extremity ulceration. Her right foot ulceration was evaluated today. On exam, there is no purulence and erythema is improving. There is peeling of dermis along the lateral incision. This was debrided with sterile instrumentation. The wound was irrigated with sterile saline and wound was packed open today. This wound really would benefit from wound vac but because the skin is so macerated today, I do not feel comfortable with wound vac. Today, the wound was dressed with betadine, sterile packing, 4x4 guaze, alison and compressive brando. I will continue to evaluate this wound and once maceration improves, will apply wound vac. I hope to be able to have wound vac applied tomorrow or Tuesday. I will have infectious disease arrange antibiotics. there was no deep joint extension of abscess but given depth of wound, I will discuss terminal operations supervisor IV antibiotics or oral antibiotics until this wound improves. I informed patient that she is at high risk of lower leg amputation. This is because she has large wound with significatn skin loss and she is poorly controlled diabetic who demonstrates noncompliant behaviors. she understands she is at risk of amputation. Patient does complain of right calf pain. she has no pain with compression of leg. I will notify hospitalist and discuss doppler. her left foot does appear to be improving. continue with nwb to left foot. srinivas applied. with continued nwb, I do believe this wound has capability of healing. disposition: senior living. I would consider discharge early next week.
[2018-12-23 08:10] LABS: Absolute Lymphocyte Count 1.54 X10^3/ul (0.83-4.51); Absolute Neutrophil Count 7.7 X10^3/uL (2.0-7.7); Basophil# 0.03 X10^3/uL; Basophil% 0.3 % (0-1); Eosinophil# 0.16 X10^3/uL; Eosinophils% 1.6 % (0-5); Hematocrit 29.4 % (37-47); Hemoglobin 9.2 g/dl (12.0-15.0); Lymphocyte # 1.54 X10^3/ul (4.0); Lymphocyte % 15.6 % (19-41); Mean Corp Hgb Conc 31.3 g/gl (32-36); Mean Corpuscular Hgb 26.4 pg (27.0-32.0); Mean Corpuscular Volume 84.2 fL (81-99); Mean Platelet Vol. 10.7 fl (6.2-12.0); Monocyte# 0.45 X10^3/uL; Monocyte% 4.6 % (0-10); Neutrophil # 7.69 X10^3/uL (2.7-7.7); Neutrophil % 77.8 % (47-70); Platelet Count 233 K/mm3 (150-450); RBC Distribution Width SD 46.5 fl (35.1-43.9); Red Blood Count 3.49 M/mm3 (4.2-5.4); White Blood Count 9.9 K/mm3 (4.4-11.0)
[2018-12-23 08:12] LABS: POSITIVE COUNT NO; POSITIVE DIFFERENTIAL NO; POSITIVE MORPHOLOGY NO
[2018-12-23] MEDS: Ondansetron 4 MG/2 ML Vial IV ×2 (08:34→16:27)
[2018-12-23] MEDS: Insulin Lispro 100 UNIT/ML INSULN.PEN 20 UNIT SC (08:36)
[2018-12-23 08:56] LABS: Bedside Glucose 89 mg/dL (70-110)
[2018-12-23] MEDS: Ascorbic Acid 500 MG Tablet PO ×2 (09:09→16:29)
[2018-12-23] MEDS: Gabapentin 800 MG Tablet PO ×3 (09:09→21:51)
[2018-12-23] MEDS: Pramipexole Di-HCl 1 MG Tablet 1.5 MG PO ×2 (09:10→21:51)
[2018-12-23] MEDS: Lisinopril 5 MG Tablet PO (09:10)
[2018-12-23] MEDS: Escitalopram Oxalate 10 MG Tablet PO (09:11)
[2018-12-23] MEDS: Metoprolol Tartrate 25 MG Tablet 12.5 MG PO ×2 (09:11→21:51)
[2018-12-23] MEDS: Enoxaparin 40 MG/0.4 ML Syringe SC (09:11)
[2018-12-23] MEDS: Clopidogrel Bisulfate 75 MG Tablet PO (09:11)
--- NOTE | 2018-12-23 09:50 | VDLE_ITS ---
Reason For Study: RLE swelling RIGHT GSV is normal. CFV is compressible, spontaneous, phasic, competent and demonstrates normal augmentation. FV is compressible, spontaneous, phasic, competent and demonstrates normal augmentation. POP V is compressible, spontaneous, phasic, competent and demonstrates normal augmentation. T/P Trunk is compressible. PTV is compressible. RT PerV is compressible. Procedure Exam performed portable in patient room. A preliminary report was called and/or faxed to [facility]. Interpretation Summary There is no evidence of right lower extremity deep vein thrombosis. Right greater saphenous vein appears patent and compressible segmentally. Ordering Physician: Annie Duran Referring Physician: Ashely Barakat Performed By: Caren Good, RDGEORGINA, RVT
--- NOTE | 2018-12-23 09:56 | PCM.PN.HOSP ---
Patient Problems: Active and Suspected Problems (Last Reviewed 09/28/18 @ 15:32 by Saravanan Jean Baptiste MD) Severe sepsis (Acute) Wound of foot (Acute) Subjective: Patient was seen and examined. She denied any complaints to me. She had howevere complained of severe pain to nursing earlier. Admitted to nausea last night with an episode of vomiting. Admits to feeling cold but no fever ROS was negative. Vitals/I&O's: Vital Signs Temp Pulse Resp BP Pulse Ox 98.2 F 90 18 150/87 H 100 12/23/18 08:08 12/23/18 09:11 12/23/18 08:08 12/23/18 08:08 12/23/18 08:08 Oxygen Delivery Method Room Air Weight: 84.538 kg Body Mass Index (BMI) 30.0 Finger Stick Blood Glucose 271 Intake and Output for Last 24 Hours 12/21/18 12/22/18 12/23/18 23:59 23:59 23:59 Intake Total 3704 / 3704 3881 / 3881 1388 / 1388 Output Total 900 / 900 1850 / 1850 Balance 2804 / 2804 2031 / 2031 1388 / 1388 General: Alert, Oriented x3, Cooperative, No apparent distress HEENT: Atraumatic, PERRLA, EOMI, Normocephalic Oral: Moist Mucosa Neck: Supple Lungs: Clear to auscultation, Normal air movement Cardiovascular: Regular rate, Regular Rhythm, Normal S1, Normal S2, No murmurs Abdomen: Bowel Sounds Present, Soft, Non Tender, Non-Distended, No Hepato-splenomegaly Extremities: - - Bilateral lower extremity is wrapped in MYLA-wraps Skin: No rashes Musculoskeletal: No Tenderness to Palpation of Joints or Extremities Lymphatic: No Cervical, Supraclavicular, or Inguinal Adenopathy Neurological: Cranial nerves II-XII grossly intact, Neuro grossly intact Psych/Mental Status: Normal Affect, Appropriate Microbiology Past 72 Hours 12/21/18 16:44 Biopsy - Ankle Gram Stain - Final 12/21/18 16:44 Biopsy - Ankle Wound Culture - Final Staphylococcus aureus Laboratory Results 12/22/18 10:35: POC Glucose 245 H 12/22/18 11:59: POC Glucose 166 H 12/22/18 14:27: Vancomycin Trough 10.3 12/22/18 17:25: POC Glucose 186 H 12/22/18 22:11: POC Glucose 118 H 12/23/18 06:32: POC Glucose 87 12/23/18 07:30: WBC 9.9, RBC 3.49 L, Hgb 9.2 L, Hct 29.4 L, MCV 84.2, MCH 26.4 L, MCHC 31.3 L, RDW 15.0 H, RDW Differential 46.5 H, Plt Count 233, MPV 10.7, Immature Gran % (Auto) 0.100, Neut % (Auto) 77.8 H, Lymph % (Auto) 15.6 L, Tyrrell % (Auto) 4.6, Eos % (Auto) 1.6, Baso % (Auto) 0.3, Absolute Neuts (auto) 7.7, Absolute Lymphs (auto) 1.54, Total Counted Not Reportable 12/23/18 08:45: POC Glucose 89 Current Medications Acetaminophen (Tylenol) 650 mg PO Q6H PRN PRN PRN Reason: Non-cardiac pain (mod-severe) Last Admin: 12/22/18 02:31 Dose: 650 mg Hydrocodone Bitart/Acetaminophen (Arden 5mg-325mg) 1 - 2 tablet PO Q6H PRN PRN PRN Reason: Moderate-severe pain Last Admin: 12/23/18 08:35 Dose: 2 tablet Al Hydroxide/Mg Hydroxide (Mylanta Ii) 30 ml PO Q6H PRN PRN PRN Reason: Gastric burning Ascorbic Acid (Vitamin C) 500 mg PO BIDCM [facility] Last Admin: 12/23/18 09:09 Dose: 500 mg Atorvastatin Calcium (Lipitor) 80 mg PO QHS [facility] Last Admin: 12/22/18 22:59 Dose: Not Given Clopidogrel Bisulfate (Plavix) 75 mg PO DAILY [facility] Last Admin: 12/23/18 09:11 Dose: 75 mg Enoxaparin Sodium (Lovenox) 40 mg SC DAILY@1000 [facility] Last Admin: 12/23/18 09:11 Dose: 40 mg Escitalopram Oxalate (Lexapro) 10 mg PO DAILY [facility] Last Admin: 12/23/18 09:11 Dose: 10 mg Gabapentin (Neurontin) 800 mg PO 0800,1700,2200 [facility] Last Admin: 12/23/18 09:09 Dose: 800 mg Hydralazine HCl (Apresoline Iv) 10 mg IV Q4H PRN PRN PRN Reason: SBP > 160 Sodium Chloride () 1,000 mls @ 125 mls/hr IV .Q8H [facility] Last Admin: 12/23/18 03:07 Dose: 125 mls/hr Metronidazole (Flagyl) 500 mg in 100 mls @ 100 mls/hr IV Q8 [facility] Last Admin: 12/23/18 06:29 Dose: 100 mls/hr Vancomycin IV Pharmacy to Dose (1 ea/ Sodium Chloride) 500 mls @ 250 mls/hr IV X1 PRN; Protocol PRN Reason: Rx to Dose Ceftriaxone Sodium 2 gm/ (Sodium Chloride) 50 mls @ 100 mls/hr IV Q24 [facility] Last Admin: 12/23/18 09:09 Dose: 100 mls/hr Vancomycin HCl 1,250 mg/ (Sodium Chloride) 275 mls @ 167 mls/hr IV Q12H [facility] Last Admin: 12/23/18 04:19 Dose: 167 mls/hr Insulin Glargine (Lantus (Bkc)) 30 units SC 0800 [facility] Last Admin: 12/23/18 08:36 Dose: 30 u Insulin Human Lispro (Humalog Kwikpen (Bkc)) 0 unit SC ACHS [facility]; Protocol Last Admin: 12/23/18 06:33 Dose: Not Given Insulin Human Lispro (Humalog Kwikpen (Bkc)) 20 unit SC TIDCM [facility] Last Admin: 12/23/18 08:36 Dose: 20 u Lisinopril (Zestril) 5 mg PO DAILY [facility] Last Admin: 12/23/18 09:10 Dose: 5 mg Magnesium Hydroxide (Milk Of Magnesia) 30 ml PO DAILY PRN PRN PRN Reason: Constipation Magnesium Hydroxide (Milk Of Magnesia) 30 ml PO DAILY PRN PRN PRN Reason: Constipation Metoprolol Tartrate (Lopressor (Beta Tin)) 12.5 mg PO BID [facility] Last Admin: 12/23/18 09:11 Dose: 12.5 mg Morphine Sulfate () 1 - 2 mg IV Q4H PRN PRN PRN Reason: PAIN Last Admin: 12/21/18 13:35 Dose: 2 mg Ondansetron HCl (Zofran) 4 mg IV Q8H PRN PRN PRN Reason: NAUSEA/VOMITING Last Admin: 12/23/18 08:34 Dose: 4 mg Pramipexole Dihydrochloride (Mirapex) 1.5 mg PO BID TAB Last Admin: 12/23/18 09:10 Dose: 1.5 mg Promethazine HCl (Phenergan) 6.25 mg IV Q4H PRN PRN PRN Reason: NAUSEA/VOMITING Last Admin: 12/22/18 22:09 Dose: 6.25 mg Sodium Chloride () 5 - 15 ml IV UD PRN PRN Reason: SALINE FLUSH Last Admin: 12/21/18 13:36 Dose: 15 ml Zolpidem Tartrate (Ambien (Generic)) 5 mg PO QHS PRN PRN PRN Reason: INSOMNIA Medical Necessity - Tobacco Use Smoking Status: Never smoker Tobacco Use: Non-smoker Assessment/Plan All Active Problems (Last Reviewed 09/28/18 @ 15:32 by Saravanan Jean Baptiste MD) Chest pain (Resolved) Osteomyelitis (Resolved) Severe sepsis (Acute) Wound of foot (Acute) NSTEMI (non-ST elevated myocardial infarction) (Resolved) Diabetic foot ulcer associated with type 2 diabetes mellitus (Acute) 53-year-old female with past medical history of type 2 diabetes, hypertension, hyperlipidemia, CKD stage III, who comes in with right foot wound infection and found to be in severe sepsis. 1.Severe sepsis secondary to MSSA right ankle abscess, improved, Stable vitals, no leukocytosis, on vancomycin and ceftriaxone Wound cultures growing staph aureus, negative blood cultures 2. MSSA right ankle status post I & D on 12/21/18, local wound exam notes by podiatry was noted. Aware of plans for wound VAC later on. Will follow-up on podiatry recommendations. 3. Right lower leg swelling, significantly swollen more than the left, Doppler ultrasound preliminarily negative. 4. Type 2 DM, complicated by neuropathy, history of noncompliance, sugars are better controlled today, Continue on 30 units of Lantus, 20 units pre-meal lispro as well as insulin sliding scale, continue to monitor blood sugars with Accu-Cheks and insulin sliding scale 5. CAD, no acute symptomatic, on plavix, statin 6. Hypertension, controlled, on Lisinopril, metoprololwill continue to monitor 7. Hyperlipidemia, on statin 8. CKD stage 3 secondary diabetic nephropathy, stable, Cr at 1.03, labs in am 9. Anxiety disorder, on Lexapro 10. DVT PPx- Lovenox SC Code Visit Inpatient E&M: 57775 Subs Hosp L2
--- NOTE | 2018-12-23 10:51 | NURSING ---
called to room per medical educator that pt having a panic attack-observed pt from doorway and resp were @ 18/min and breathing appears normal, once pt aware nurse in room resp increased to about 30 minute, pox is 99% on room air, pt instructed to try and slow breathing down , given cool cloth for face and sat upright in bed-lungs clear--pulse is 75 amd resp have slowed to 18/min-skin is warm and dry will check blood sugar
[2018-12-23 11:06] LABS: Bedside Glucose 182 mg/dL (70-110)
[2018-12-23 15:01] LABS: Bedside Glucose 147 mg/dL (70-110)
[2018-12-23] MEDS: Insulin Lispro 100 UNIT/ML INSULN.PEN SC ×2 (16:28→22:09)
[2018-12-23 16:36] LABS: Bedside Glucose 155 mg/dL (70-110)
[2018-12-23] MEDS: Atorvastatin Calcium 80 MG Tablet PO (21:51)
[2018-12-23] MEDS: proMETHazine 25 MG/ML Syringe 6.25 MG IV (22:50)
[2018-12-23 23:26] LABS: Bedside Glucose 194 mg/dL (70-110)
[2018-12-24 02:46] VITALS: BP 137/71; PULSE 83; RESP 18; TEMP 36.7; O2SAT 93
[2018-12-24] MEDS: Ondansetron 4 MG/2 ML Vial IV ×3 (02:49→20:50)
[2018-12-24 02:50] VITALS: PULSE 83
[2018-12-24] MEDS: HYDROcodone Bitartrate/Apap 5/325 Tablet PO (02:53)
[2018-12-24] MEDS: 0.9% Normal Saline 1,000 ML 125 ML IV (02:54)
[2018-12-24] MEDS: proMETHazine 25 MG/ML Syringe 6.25 MG IV ×2 (05:50→23:54)
[2018-12-24 06:49] LABS: Absolute Neutrophil Count 8.2 X10^3/uL (2.0-7.7); Basophil# 0.02 X10^3/uL; Basophil% 0.2 % (0-1); Eosinophil# 0.12 X10^3/uL; Eosinophils% 1.2 % (0-5); Hematocrit 28.3 % (37-47); Hemoglobin 8.9 g/dl (12.0-15.0); Lymphocyte % 10.1 % (19-41); Mean Corp Hgb Conc 31.4 g/gl (32-36); Mean Corpuscular Hgb 26.7 pg (27.0-32.0); Mean Platelet Vol. 10.7 fl (6.2-12.0); Monocyte% 5.1 % (0-10); Neutrophil # 8.24 X10^3/uL (2.7-7.7); Neutrophil % 83.2 % (47-70); Platelet Count 259 K/mm3 (150-450); RBC Distribution Width CV 15.2 % (11.6-14.6); RBC Distribution Width SD 47.4 fl (35.1-43.9); Red Blood Count 3.33 M/mm3 (4.2-5.4); White Blood Count 9.9 K/mm3 (4.4-11.0)
[2018-12-24 06:50] LABS: POSITIVE COUNT NO; POSITIVE DIFFERENTIAL NO; POSITIVE MORPHOLOGY NO
[2018-12-24 07:41] LABS: Bedside Glucose 147 mg/dL (70-110)
[2018-12-24 08:19] VITALS: BP 158/82; PULSE 80; PULSE 87; RESP 16; TEMP 36.7; O2SAT 93
[2018-12-24] MEDS: Gabapentin 800 MG Tablet PO ×2 (08:35→21:44)
[2018-12-24] MEDS: Enoxaparin 40 MG/0.4 ML Syringe SC (08:35)
[2018-12-24 08:36] VITALS: PULSE 87
[2018-12-24] MEDS: Escitalopram Oxalate 10 MG Tablet PO (08:36)
[2018-12-24] MEDS: Metoprolol Tartrate 25 MG Tablet 12.5 MG PO ×2 (08:36→21:45)
[2018-12-24] MEDS: Clopidogrel Bisulfate 75 MG Tablet PO (08:36)
[2018-12-24] MEDS: Ascorbic Acid 500 MG Tablet PO (08:37)
[2018-12-24] MEDS: Pramipexole Di-HCl 1 MG Tablet 1.5 MG PO ×2 (08:38→21:45)
[2018-12-24] MEDS: Lisinopril 5 MG Tablet PO (08:40)
[2018-12-24] MEDS: Magnesium Hydroxide 30 ML UDC PO (08:44)
--- NOTE | 2018-12-24 08:52 | NURSING ---
administered po meds and mom, pt immediately had 300 cc emesis.
--- NOTE | 2018-12-24 09:05 | NURSING ---
Dr. Stockton assessing pt now.
--- NOTE | 2018-12-24 09:06 | RAD_ITS ---
STUDY: X-RAY - ABDOMEN/PELVIS REASON FOR EXAM: Female, 53 years old. Nausea and vomiting TECHNIQUE: Supine abdomen COMPARISON: None. FINDINGS: Excluded lung bases. There is an unremarkable bowel gas pattern. There is no demonstrated free abdominal air. The visualized liver, spleen and kidneys are grossly normal in size and morphology. There are calcified phleboliths in the pelvis. There are diffuse degenerative changes of the visualized lumbar spine. RAD/Abdomen Single View (Portable) IMPRESSION: Nonobstructive bowel gas pattern. Electronically Signed: Shan Cadet MD at 10:21 EDT , Service support ,
--- NOTE | 2018-12-24 10:42 | PCM.PN.HOSP ---
Patient Problems: Active and Suspected Problems (Last Reviewed 09/28/18 @ 15:32 by Saravanan Jean Baptiste MD) Severe sepsis (Acute) Wound of foot (Acute) Subjective: Patient was seen and examined. Complains of abdominal discomfort. Had some loose stools the previous day. Denies fever, chills, abdominal pain. ROS is negative. Objective: Physical exam: General: Alert, Oriented x3, Cooperative, No apparent distress, not on oxygen HEENT: Atraumatic, PERRLA, EOMI, Normocephalic Oral: Moist Mucosa Neck: Supple Lungs: Clear to auscultation, Normal air movement Cardiovascular: Regular rate, Regular Rhythm, Normal S1, Normal S2, No murmurs Abdomen: Bowel Sounds Present, Soft, Non Tender, Non-Distended, No Hepato-splenomegaly Extremities: - - Bilateral lower extremity is wrapped in MYLA-wraps Skin: No rashes Musculoskeletal: No Tenderness to Palpation of Joints or Extremities Lymphatic: No Cervical, Supraclavicular, or Inguinal Adenopathy Neurological: Cranial nerves II-XII grossly intact, Neuro grossly intact Psych/Mental Status: Normal Affect, Appropriate Vitals/I&O's: Vital Signs Temp Pulse Resp BP Pulse Ox 98.1 F 87 16 158/82 H 93 12/24/18 08:19 12/24/18 08:36 12/24/18 08:19 12/24/18 08:19 12/24/18 08:19 Oxygen Delivery Method Room Air Weight: 84.538 kg Body Mass Index (BMI) 30.0 Finger Stick Blood Glucose 271 Intake and Output for Last 24 Hours 12/22/18 12/23/18 12/24/18 23:59 23:59 23:59 Intake Total 3881 / 3881 3411 / 3411 1846 / 1846 Output Total 1850 / 1850 500 / 500 400 / 400 Balance 2030 / 2030 2911 / 2911 1446 / 1446 Microbiology Past 72 Hours 12/21/18 16:44 Biopsy - Ankle Gram Stain - Final 12/21/18 16:44 Biopsy - Ankle Wound Culture - Final Staphylococcus aureus 12/21/18 16:44 Biopsy - Ankle Anaerobic Culture - Preliminary Checking for anaerobes, further studies to follow. 12/21/18 02:23 Blood Culture (Wb) - Anticubital Right Blood Culture - Preliminary No growth in 48 hours. 12/21/18 02:16 Blood Culture (Wb) - Anticubital Left Blood Culture - Preliminary No growth in 48 hours. Laboratory Results 12/23/18 11:02: POC Glucose 182 H 12/23/18 14:57: POC Glucose 147 H 12/23/18 16:20: POC Glucose 155 H 12/23/18 22:02: POC Glucose 194 H 12/24/18 05:36: WBC 9.9, RBC 3.33 L, Hgb 8.9 L, Hct 28.3 L, MCV 85.0, MCH 26.7 L, MCHC 31.4 L, RDW 15.2 H, RDW Differential 47.4 H, Plt Count 259, MPV 10.7, Immature Gran % (Auto) 0.200, Neut % (Auto) 83.2 H, Lymph % (Auto) 10.1 L, [place] % (Auto) 5.1, Eos % (Auto) 1.2, Baso % (Auto) 0.2, Absolute Neuts (auto) 8.2 H, Absolute Lymphs (auto) 1.00, Total Counted Not Reportable 12/24/18 07:34: POC Glucose 147 H Current Medications Acetaminophen (Tylenol) 650 mg PO Q6H PRN PRN PRN Reason: Non-cardiac pain (mod-severe) Last Admin: 12/22/18 02:31 Dose: 650 mg Al Hydroxide/Mg Hydroxide (Mylanta Ii) 30 ml PO Q6H PRN PRN PRN Reason: Gastric burning Ascorbic Acid (Vitamin C) 500 mg PO BIDCM [facility] Last Admin: 12/24/18 08:37 Dose: 500 mg Atorvastatin Calcium (Lipitor) 80 mg PO QHS [facility] Last Admin: 12/23/18 21:51 Dose: 80 mg Clopidogrel Bisulfate (Plavix) 75 mg PO DAILY [facility] Last Admin: 12/24/18 08:36 Dose: 75 mg Enoxaparin Sodium (Lovenox) 40 mg SC DAILY@1000 [facility] Last Admin: 12/24/18 08:35 Dose: 40 mg Escitalopram Oxalate (Lexapro) 10 mg PO DAILY [facility] Last Admin: 12/24/18 08:36 Dose: 10 mg Gabapentin (Neurontin) 800 mg PO 0800,1700,2200 [facility] Last Admin: 12/24/18 08:35 Dose: 800 mg Hydralazine HCl (Apresoline Iv) 10 mg IV Q4H PRN PRN PRN Reason: SBP > 160 Sodium Chloride () 1,000 mls @ 125 mls/hr IV .Q8H [facility] Last Admin: 12/24/18 02:54 Dose: 125 mls/hr Vancomycin IV Pharmacy to Dose (1 ea/ Sodium Chloride) 500 mls @ 250 mls/hr IV X1 PRN; Protocol PRN Reason: Rx to Dose Ceftriaxone Sodium 2 gm/ (Sodium Chloride) 50 mls @ 100 mls/hr IV Q24 [facility] Last Admin: 12/24/18 10:24 Dose: 100 mls/hr Vancomycin HCl 1,250 mg/ (Sodium Chloride) 275 mls @ 167 mls/hr IV Q12H [facility] Last Admin: 12/24/18 03:30 Dose: 167 mls/hr Insulin Glargine (Lantus (Bkc)) 30 units SC 0800 [facility] Last Admin: 12/24/18 08:40 Dose: 30 u Insulin Human Lispro (Humalog Kwikpen (Bk)) 0 unit SC ACHS [facility]; Protocol Last Admin: 12/24/18 07:40 Dose: Not Given Lisinopril (Zestril) 5 mg PO DAILY [facility] Last Admin: 12/24/18 08:40 Dose: 5 mg Magnesium Hydroxide (Milk Of Magnesia) 30 ml PO DAILY PRN PRN PRN Reason: Constipation Last Admin: 12/24/18 08:44 Dose: 30 ml Magnesium Hydroxide (Milk Of Magnesia) 30 ml PO DAILY PRN PRN PRN Reason: Constipation Metoprolol Tartrate (Lopressor (Beta Tin)) 12.5 mg PO BID [facility] Last Admin: 12/24/18 08:36 Dose: 12.5 mg Morphine Sulfate () 1 - 2 mg IV Q4H PRN PRN PRN Reason: PAIN Last Admin: 12/21/18 13:35 Dose: 2 mg Ondansetron HCl (Zofran) 4 mg IV Q8H PRN PRN PRN Reason: NAUSEA/VOMITING Last Admin: 12/24/18 10:24 Dose: 4 mg Oxycodone HCl (Oxyir) 5 mg PO Q6H PRN PRN PRN Reason: SEVERE PAIN (6-10/10) Pramipexole Dihydrochloride (Mirapex) 1.5 mg PO BID TAB Last Admin: 12/24/18 08:38 Dose: 1.5 mg Promethazine HCl (Phenergan) 6.25 mg IV Q4H PRN PRN PRN Reason: NAUSEA/VOMITING Last Admin: 12/24/18 05:50 Dose: 6.25 mg Sodium Chloride () 5 - 15 ml IV UD PRN PRN Reason: SALINE FLUSH Last Admin: 12/21/18 13:36 Dose: 15 ml Zolpidem Tartrate (Ambien (Generic)) 5 mg PO QHS PRN PRN PRN Reason: INSOMNIA Medical Necessity - Tobacco Use Smoking Status: Never smoker Tobacco Use: Non-smoker Assessment/Plan All Active Problems (Last Reviewed 09/28/18 @ 15:32 by Saravanan Jean Baptiste MD) Chest pain (Resolved) Osteomyelitis (Resolved) Severe sepsis (Acute) Wound of foot (Acute) NSTEMI (non-ST elevated myocardial infarction) (Resolved) Diabetic foot ulcer associated with type 2 diabetes mellitus (Acute) 53-year-old female with past medical history of type 2 diabetes, hypertension, hyperlipidemia, CKD stage III, who comes in with right foot wound infection and found to be in severe sepsis. 1. Nausea and vomiting, likely medication-related, metronidazole discontinued, Abdominal KUB showed nonspecific bowel pattern Will continue to monitor. 2. Severe sepsis secondary to MSSA right ankle abscess, improved, Stable vitals, no leukocytosis, on vancomycin and ceftriaxone Wound cultures growing staph aureus, negative blood cultures 3. MSSA right ankle status post I & D on 12/21/18, local wound exam notes by podiatry was noted. Aware of plans for wound VAC later on. Will follow-up on podiatry recommendations. 4. Right lower leg swelling, significantly swollen more than the left, Doppler ultrasound preliminarily negative. Likely a local effect 5. Type 2 DM, complicated by neuropathy, history of noncompliance, sugars are better controlled today, Continue on 30 units of Lantus, 20 units pre-meal lispro as well as insulin sliding scale, Continue to monitor blood sugars with Accu-Cheks and insulin sliding scale 6. CAD, no acute symptomatic, on plavix, statin 7. Hypertension, controlled, on Lisinopril, metoprolol\ Will continue to monitor 8. Hyperlipidemia, on statin 9. CKD stage 3 secondary diabetic nephropathy, stable, Cr at 1.03, labs in am 10. Anxiety disorder, on Lexapro 11. DVT PPx- Lovenox SC 12. Disposition: Possible DC to SNF in the next 2-3 days, when ok by podiatry Code Visit Inpatient E&M: 53929 Subs Hosp L2
[2018-12-24] MEDS: Morphine 2 MG/ML Syringe IV ×2 (11:11→16:15)
[2018-12-24 11:18] LABS: Bacteria 0 SEEN /hpf (None Seen); Mucous, Urine 0 SEEN /hpf (<or=2+); White Blood Cells 0 SEEN /hpf (0-5)
[2018-12-24 11:21] LABS: Color, Urine Yellow (Yellow); Glucose, Dipstick 250 mg/dl (Normal); Ketone-Dipstick 50 mg/dl (Negative); Leukocyte Esterase-Dipstick 100 /ul (Negative); Nitrite-Dipstick Negative (Negative); Occult Blood-Urine 250 /ul (Negative); Protein-Dipstick 30 mg/dl (Negative); Specific Gravity, Urine 1.015 (1.002-1.030); Urine Bilirubin Dipstick Negative (Negative); Urine Clarity Cloudy (Clear); Urine Urobilinogen Normal (Normal)
[2018-12-24 11:25] LABS: Bedside Glucose 162 mg/dL (70-110)
[2018-12-24 11:27] LABS: Red Blood Cells-Urine > 100 SEEN /hpf (0-5); Squamous Epithelial Cells - UA 0-5 SEEN /hpf (5-10)
--- NOTE | 2018-12-24 11:37 | PCM.PROGNOTE ---
Patient Problems: Active and Suspected Problems (Last Reviewed 09/28/18 @ 15:32 by Saravanan Jean Baptiste MD) Severe sepsis (Acute) Wound of foot (Acute) Subjective: patient seen at bedside this morning. she complains of nausea. she does complain of pain to right ankle but pain is tolerable. she has no other complaints. Objective: patient is alert and oreintated x3. she does not appear in any distress. right lateral ankle with full thickness wound with mostly granular base. the wound measures ~1.1 cm x 1.0 cm x 0.8 cm. there is no purulence expressed from wound. there is no erythema. the vinicius-wound maceration is improved. there is healing blistering of right lateral incision. there is pain to palpation of right lateral incision where blistering present. no pain with rom of right ankle. no calf pain present. left foot wound measures 1.6 cm x 1.0 cm. there is granular base. there is no signs of infection to left foot. no other ulcerations noted. - Physical Exam Vital Signs Temp Pulse Resp BP Pulse Ox 98.1 F 87 16 158/82 H 93 12/24/18 08:19 12/24/18 08:36 12/24/18 08:19 12/24/18 08:19 12/24/18 08:19 Oxygen Delivery Method Room Air Weight: 84.538 kg Body Mass Index (BMI) 30.0 Finger Stick Blood Glucose 271 Intake and Output for Last 24 Hours 12/22/18 12/23/18 12/24/18 23:59 23:59 23:59 Intake Total 3881 / 3881 3411 / 3411 1846 / 1846 Output Total 1850 / 1850 500 / 500 400 / 400 Balance 2030 / 2030 2911 / 2911 1446 / 1446 Microbiology Past 72 Hours 12/21/18 16:44 Gram Stain - Final Biopsy - Ankle Wound Culture - Final Staphylococcus aureus Anaerobic Culture - Preliminary Checking for anaerobes, further studies to follow. 12/21/18 02:23 Blood Culture - Preliminary Blood Culture (Wb) - Anticubital Right No growth in 48 hours. 12/21/18 02:16 Blood Culture - Preliminary Blood Culture (Wb) - Anticubital Left No growth in 48 hours. Laboratory Tests Past 24 Hrs 12/24/18 12/24/18 05:36 09:06 WBC 9.9 RBC 3.33 L Hgb 8.9 L Hct 28.3 L MCV 85.0 MCH 26.7 L MCHC 31.4 L RDW 15.2 H RDW Differential 47.4 H Plt Count 259 MPV 10.7 Immature Gran % (Auto) 0.200 Neut % (Auto) 83.2 H Lymph % (Auto) 10.1 L [place] % (Auto) 5.1 Eos % (Auto) 1.2 Baso % (Auto) 0.2 Absolute Neuts (auto) 8.2 H Absolute Lymphs (auto) 1.00 Total Counted Not Reportable Urine Color Yellow Urine Clarity Cloudy Urine pH 6.0 Ur Specific [place] 1.015 Urine Protein 30 H Urine Glucose (UA) 250 H Urine Ketones 50 H Urine Occult Blood 250 H Urine Nitrite Negative Urine Bilirubin Negative Urine Urobilinogen Normal Ur Leukocyte Esterase 100 H Urine RBC > 100 SEEN Urine WBC 0 SEEN Ur Squamous Epith Cells 0-5 SEEN Urine Bacteria 0 SEEN Urine Mucus 0 SEEN POC Glucose 12/24/18 12/24/18 12/23/18 11:17 07:34 22:02 POC Glucose 162 H 147 H 194 H 12/23/18 12/23/18 16:20 14:57 POC Glucose 155 H 147 H Medical Necessity - Tobacco Use Smoking Status: Never smoker Tobacco Use: Non-smoker Assessment/Plan All Active Problems (Last Reviewed 09/28/18 @ 15:32 by Saravanan Jean Baptiste MD) Chest pain (Resolved) Osteomyelitis (Resolved) Severe sepsis (Acute) Wound of foot (Acute) NSTEMI (non-ST elevated myocardial infarction) (Resolved) Diabetic foot ulcer associated with type 2 diabetes mellitus (Acute) patient was examined and informed of current findings. her right lower extremity ulceration s/p I&D does appear to be free of any purulence or cellulitis. there is full thickness wound that I do believe would benefit with wound vac. Unfortunately, I feel the vinicius-wound blistering does make challenges for wound vac at this time. The wound was irrigated under sterile technique. The right lateral ankle ulceration was packed open and the entire lateral leg was dressed with betadine and sterile dressing. did not apply and nonadherent dressing today or yesterday because of maceration as I do not want any dressing to lead to further maceration. again, I think she would benefit from wound vac but at this time given the quality of vinicius-wound, I am going to hold on wound vac. i will have Tiffany Reddy evaluate wound tomorrow and possible wound vac application tomorrow. I am going to consult plastic surgery for evaluation of lateral leg wound. I am going to have them evaluate to see if there would be any benefit from plastic surgery for coverage along ulceration of right lateral leg. I spoke with plastic surgery regarding consult. per discussion with plastic surgery, she is not ideal candidate for any rotational skin flap based on poor control of sugars. will continue with local wound care and will apply wound vac once soft-tissue around ulceration permits application of wound vac. patient will continue with antibiotics per ID. Flagyl was discontinued today by primary due to nausea. the left foot ulceration does appear to be healing with offloading. she will continue with nwb to left foot with peg assisted offloading. she will be weightbearing to right foot with surgical shoe. disposition: patient will discharge to nursing facility later this week pending she is tolerating antibiotics and wound free of infection. patient understands she is at risk of lowing her leg. xrays of ankle ordered. no acute fracture or bone infection identified.
--- NOTE | 2018-12-24 11:51 | RAD_ITS ---
STUDY: X-RAY - RIGHT ANKLE REASON FOR EXAM: Female, 53 years old. Right ankle pain TECHNIQUE: 3 view(s) of the ankle. COMPARISON: 12/21/2018 FINDINGS: Soft tissue swelling with lateral defect correlates to area of surgery evident on fluoroscopic images of 12/21/2018. No destructive bony process. There is an old osseous density adjacent to the medial talus which is stable. Normal tibiotalar articulation and ankle mortise. The fifth metatarsus is partially surgically absent. RAD/Ankle min 3 Views IMPRESSION: 1. Persistent soft tissue swelling in the lateral ankle, in region of abscess evident on prior MRI of 12/21/2018. 2. No alvarado bony destruction seen on the current exam. Electronically Signed: Shan Cadet MD at 13:03 EDT , Service support ,
[2018-12-24] MEDS: Insulin Lispro 100 UNIT/ML INSULN.PEN SC ×2 (12:57→16:11)
[2018-12-24 13:06] LABS: Bedside Glucose 162 mg/dL (70-110)
[2018-12-24 16:21] LABS: Bedside Glucose 150 mg/dL (70-110)
[2018-12-24 16:31] LABS: Vancomycin, Trough Level 13.3 ug/mL (5.0-15.0)
[2018-12-24] MEDS: Bisacodyl 10 MG Suppository RECTAL (17:31)
[2018-12-24] MEDS: Morphine 2 MG/ML Syringe 1 MG IV (20:50)
[2018-12-24 21:00] VITALS: BP 149/75; PULSE 96; RESP 18; TEMP 37.4; O2SAT 94
[2018-12-24 21:45] VITALS: BP 149/75; PULSE 96
[2018-12-24] MEDS: Atorvastatin Calcium 80 MG Tablet PO (21:45)
[2018-12-24] MEDS: Zolpidem Tartrate 5 MG Tablet PO (23:59)
[2018-12-25] VITALS (8 sets, daily range): BP systolic 147–169; BP diastolic 78–95; PULSE 92–101; RESP 16–18; TEMP 36.6–37.3; O2SAT 93–95
[2018-12-25 00:26] LABS: Bedside Glucose 109 mg/dL (70-110)
[2018-12-25] MEDS: 0.9% Normal Saline 1,000 ML 100 ML IV ×2 (02:36→14:38)
[2018-12-25] MEDS: hydrALAZINE 20 MG/ML Vial 10 MG IV (04:41)
[2018-12-25 06:00] LABS: Bedside Glucose 122 mg/dL (70-110)
[2018-12-25 06:18] LABS: Absolute Neutrophil Count 7.5 X10^3/uL (2.0-7.7); Basophil# 0.02 X10^3/uL; Basophil% 0.2 % (0-1); Eosinophil# 0.12 X10^3/uL; Eosinophils% 1.3 % (0-5); Hematocrit 30.2 % (37-47); Hemoglobin 9.3 g/dl (12.0-15.0); Lymphocyte % 11.7 % (19-41); Mean Corp Hgb Conc 30.8 g/gl (32-36); Mean Corpuscular Hgb 26.5 pg (27.0-32.0); Mean Platelet Vol. 10.7 fl (6.2-12.0); Monocyte# 0.62 X10^3/uL; Monocyte% 6.6 % (0-10); Neutrophil # 7.49 X10^3/uL (2.7-7.7); Neutrophil % 79.8 % (47-70); Platelet Count 306 K/mm3 (150-450); RBC Distribution Width CV 14.9 % (11.6-14.6); Red Blood Count 3.51 M/mm3 (4.2-5.4); White Blood Count 9.4 K/mm3 (4.4-11.0)
[2018-12-25 06:28] LABS: POSITIVE COUNT NO; POSITIVE DIFFERENTIAL NO; POSITIVE MORPHOLOGY NO
[2018-12-25 06:35] LABS: Anion Gap 7 (5-15); BUN 6 mg/dL (7-18); BUN/Creat Ratio 9.3 RATIO (10-20); Calcium,Total 7.4 mg/dL (8.5-10.1); Chloride 111 mmol/L (98-107); Creatinine, Serum 0.65 mg/dL (0.55-1.02); EST Glomerular Filtration Rate 102 mL/min (>60); Est Glom Filt Rate - Afr Amer 123 mL/min (>60); Glucose 102 mg/dL (74-106); Potassium 3.3 mmol/L (3.5-5.1); Sodium Level 140 mmol/L (136-145)
--- NOTE | 2018-12-25 08:47 | NURSING ---
wound photo: right lateral ankle
--- NOTE | 2018-12-25 08:48 | NURSING ---
wound photo: left plantar foot
[2018-12-25] MEDS: Gabapentin 800 MG Tablet PO ×3 (09:15→21:37)
[2018-12-25] MEDS: Metoprolol Tartrate 25 MG Tablet 12.5 MG PO ×2 (09:18→21:37)
[2018-12-25] MEDS: Ascorbic Acid 500 MG Tablet PO ×2 (09:18→17:10)
[2018-12-25] MEDS: Pramipexole Di-HCl 1 MG Tablet 1.5 MG PO ×2 (09:21→21:38)
[2018-12-25] MEDS: Enoxaparin 40 MG/0.4 ML Syringe SC (09:21)
[2018-12-25] MEDS: Clopidogrel Bisulfate 75 MG Tablet PO (09:22)
[2018-12-25] MEDS: Escitalopram Oxalate 10 MG Tablet PO (09:22)
[2018-12-25] MEDS: Lisinopril 5 MG Tablet PO (09:25)
[2018-12-25] MEDS: proMETHazine 25 MG/ML Syringe 6.25 MG IV (09:25)
[2018-12-25] MEDS: Morphine 2 MG/ML Syringe 1 MG IV (09:25)
[2018-12-25] MEDS: 0.9% NaCl Peripheral Flush Adult/Peds IV (09:26)
--- NOTE | 2018-12-25 10:28 | PCM.PN.ID ---
Patient Problems: Active and Suspected Problems (Last Reviewed 09/28/18 @ 15:32 by Saravanan Jean Baptiste MD) Severe sepsis (Acute) Wound of foot (Acute) Subjective: Still some n/v, no fever, some pain in leg. - Physical Exam General: Alert, Cooperative, No apparent distress Lungs: Clear to auscultation, Normal air movement Cardiovascular: Regular rate, Regular Rhythm Abdomen: Soft, Non Tender, Non-Distended Skin: Ulcer/ Wound - legs wrapped Vital Signs Temp Pulse Resp BP Pulse Ox 99.1 F 101 H 18 150/83 H 93 12/25/18 09:15 12/25/18 09:18 12/25/18 09:15 12/25/18 09:15 12/25/18 09:15 Oxygen Delivery Method Room Air Weight: 84.538 kg Body Mass Index (BMI) 30.0 Finger Stick Blood Glucose 271 Intake and Output for Last 24 Hours 12/23/18 12/24/18 12/25/18 23:59 23:59 23:59 Intake Total 3411 / 3411 3410 / 3410 1477 / 1477 Output Total 500 / 500 800 / 800 600 / 600 Balance 2911 / 2911 2610 / 2610 877 / 877 Microbiology Past 72 Hours 12/21/18 16:44 Gram Stain - Final Biopsy - Ankle Wound Culture - Final Staphylococcus aureus Anaerobic Culture - Final No anaerobic bacteria isolated. 12/21/18 02:23 Blood Culture - Preliminary Blood Culture (Wb) - Anticubital Right No growth in 48 hours. 12/21/18 02:16 Blood Culture - Preliminary Blood Culture (Wb) - Anticubital Left No growth in 48 hours. Laboratory Tests Past 24 Hrs 12/24/18 12/24/18 12/25/18 09:06 15:40 05:10 WBC 9.4 RBC 3.51 L Hgb 9.3 L Hct 30.2 L MCV 86.0 MCH 26.5 L MCHC 30.8 L RDW 14.9 H RDW Differential 45.0 H Plt Count 306 MPV 10.7 Immature Gran % (Auto) 0.400 Neut % (Auto) 79.8 H Lymph % (Auto) 11.7 L [place] % (Auto) 6.6 Eos % (Auto) 1.3 Baso % (Auto) 0.2 Absolute Neuts (auto) 7.5 Absolute Lymphs (auto) 1.10 Total Counted Not Reportable Sodium Potassium Chloride Carbon Dioxide Anion Gap BUN Creatinine Estim Creat Clear Calc Est GFR (MDRD) Af Amer Est GFR (MDRD) Non-Af BUN/Creatinine Ratio Glucose Calcium Urine Color Yellow Urine Clarity Cloudy Urine pH 6.0 Ur Specific [place] 1.015 Urine Protein 30 H Urine Glucose (UA) 250 H Urine Ketones 50 H Urine Occult Blood 250 H Urine Nitrite Negative Urine Bilirubin Negative Urine Urobilinogen Normal Ur Leukocyte Esterase 100 H Urine RBC > 100 SEEN Urine WBC 0 SEEN Ur Squamous Epith Cells 0-5 SEEN Urine Bacteria 0 SEEN Urine Mucus 0 SEEN Vancomycin Trough 13.3 12/25/18 05:10 WBC RBC Hgb Hct MCV MCH MCHC RDW RDW Differential Plt Count MPV Immature Gran % (Auto) Neut % (Auto) Lymph % (Auto) [place] % (Auto) Eos % (Auto) Baso % (Auto) Absolute Neuts (auto) Absolute Lymphs (auto) Total Counted Sodium 140 Potassium 3.3 L Chloride 111 H Carbon Dioxide 22.0 Anion Gap 7 BUN 6 L Creatinine 0.65 Estim Creat Clear Calc 93.70 Est GFR (MDRD) Af Amer 123 Est GFR (MDRD) Non-Af 102 BUN/Creatinine Ratio 9.3 L Glucose 102 Calcium 7.4 L Urine Color Urine Clarity Urine pH Ur Specific [place] Urine Protein Urine Glucose (UA) Urine Ketones Urine Occult Blood Urine Nitrite Urine Bilirubin Urine Urobilinogen Ur Leukocyte Esterase Urine RBC Urine WBC Ur Squamous Epith Cells Urine Bacteria Urine Mucus Vancomycin Trough POC Glucose 12/25/18 12/24/18 12/24/18 05:48 23:52 16:09 POC Glucose 122 H 109 150 H 12/24/18 12/24/18 12:55 11:17 POC Glucose 162 H 162 H Medical Necessity - Tobacco Use Smoking Status: Never smoker Tobacco Use: Non-smoker Route of nutrition/ use of supplements: [] Nutritional Intake: [] IV Site: [] Tirado Catheter: [] - Assessment/Plan Antibiotics: [] Assessment/Plan: [] Active and Suspected Problems (Last Reviewed 09/28/18 @ 15:32 by Saravanan Jean Baptiste MD) Severe sepsis (Acute) Wound of foot (Acute) R ankle MSSA abscess causing severe sepsis- MRI does not show osteo. Taken to OR 12/[address] Testrake for I&D. Cx now with MSSA. Narrow abx to cefazolin. Plan on 2 week total course from day of surgery. Wound still macerated. Plastic surgery to see. Will follow, d/w bilingual patient support caseworker
--- NOTE | 2018-12-25 10:31 | PCM.PN.HOSP ---
Patient Problems: Active and Suspected Problems (Last Reviewed 12/25/18 @ 16:03 by Jamee Sawant PA-C) Intractable nausea and vomiting (Acute) Severe sepsis (Acute) Wound of foot (Acute) Subjective: Patient was seen and examined. She complained of persistent nausea and vomiting. Had KUB done yesterday that showed no ileus. She has had multiple bowel movemnets. No fever but chills. Objective: Physical exam: General: Alert, Oriented x3, Cooperative, No apparent distress, not on oxygen HEENT: Atraumatic, PERRLA, EOMI, Normocephalic Oral: Moist Mucosa Neck: Supple Lungs: Clear to auscultation, Normal air movement Cardiovascular: Regular rate, Regular Rhythm, Normal S1, Normal S2, No murmurs Abdomen: Bowel Sounds Present, Soft, Non Tender, Non-Distended, No Hepato-splenomegaly Extremities: - - Bilateral lower extremity is wrapped in MYLA-wraps Skin: No rashes Musculoskeletal: No Tenderness to Palpation of Joints or Extremities Lymphatic: No Cervical, Supraclavicular, or Inguinal Adenopathy Neurological: Cranial nerves II-XII grossly intact, Neuro grossly intact Psych/Mental Status: Normal Affect, Appropriate Vitals/I&O's: Vital Signs Temp Pulse Resp BP Pulse Ox 99.1 F 101 H 18 150/83 H 93 12/25/18 09:15 12/25/18 09:18 12/25/18 09:15 12/25/18 09:15 12/25/18 09:15 Oxygen Delivery Method Room Air Weight: 84.538 kg Body Mass Index (BMI) 30.0 Finger Stick Blood Glucose 271 Intake and Output for Last 24 Hours 12/23/18 12/24/18 12/25/18 23:59 23:59 23:59 Intake Total 3411 / 3411 3410 / 3410 1477 / 1477 Output Total 500 / 500 800 / 800 600 / 600 Balance 2911 / 2911 2610 / 2610 877 / 877 Microbiology Past 72 Hours 12/21/18 16:44 Biopsy - Ankle Gram Stain - Final 12/21/18 16:44 Biopsy - Ankle Wound Culture - Final Staphylococcus aureus 12/21/18 16:44 Biopsy - Ankle Anaerobic Culture - Final No anaerobic bacteria isolated. 12/21/18 02:23 Blood Culture (Wb) - Anticubital Right Blood Culture - Preliminary No growth in 48 hours. 12/21/18 02:16 Blood Culture (Wb) - Anticubital Left Blood Culture - Preliminary No growth in 48 hours. Laboratory Results 12/24/18 09:06: Urine Color Yellow, Urine Clarity Cloudy, Urine pH 6.0, Ur Specific Glady 1.015, Urine Protein 30 H, Urine Glucose (UA) 250 H, Urine Ketones 50 H, Urine Occult Blood 250 H, Urine Nitrite Negative, Urine Bilirubin Negative, Urine Urobilinogen Normal, Ur Leukocyte Esterase 100 H, Urine RBC > 100 SEEN, Urine WBC 0 SEEN, Ur Squamous Epith Cells 0-5 SEEN, Urine Bacteria 0 SEEN, Urine Mucus 0 SEEN 12/24/18 11:17: POC Glucose 162 H 12/24/18 12:55: POC Glucose 162 H 12/24/18 15:40: Vancomycin Trough 13.3 12/24/18 16:09: POC Glucose 150 H 12/24/18 23:52: POC Glucose 109 12/25/18 05:10: WBC 9.4, RBC 3.51 L, Hgb 9.3 L, Hct 30.2 L, MCV 86.0, MCH 26.5 L, MCHC 30.8 L, RDW 14.9 H, RDW Differential 45.0 H, Plt Count 306, MPV 10.7, Immature Gran % (Auto) 0.400, Neut % (Auto) 79.8 H, Lymph % (Auto) 11.7 L, [place] % (Auto) 6.6, Eos % (Auto) 1.3, Baso % (Auto) 0.2, Absolute Neuts (auto) 7.5, Absolute Lymphs (auto) 1.10, Total Counted Not Reportable 12/25/18 05:10: Sodium 140, Potassium 3.3 L, Chloride 111 H, Carbon Dioxide 22.0, Anion Gap 7, BUN 6 L, Creatinine 0.65, Estim Creat Clear Calc 93.70, Est GFR (MDRD) Af Amer 123, Est GFR (MDRD) Non-Af 102, BUN/Creatinine Ratio 9.3 L, Glucose 102, Calcium 7.4 L 12/25/18 05:48: POC Glucose 122 H Current Medications Acetaminophen (Tylenol) 650 mg PO Q6H PRN PRN PRN Reason: Non-cardiac pain (mod-severe) Last Admin: 12/22/18 02:31 Dose: 650 mg Al Hydroxide/Mg Hydroxide (Mylanta Ii) 30 ml PO Q6H PRN PRN PRN Reason: Gastric burning Ascorbic Acid (Vitamin C) 500 mg PO BIDCM [facility] Last Admin: 12/25/18 09:18 Dose: 500 mg Atorvastatin Calcium (Lipitor) 80 mg PO QHS [facility] Last Admin: 12/24/18 21:45 Dose: 80 mg Bisacodyl (Dulcolax) 10 mg RECTAL DAILY [facility] Last Admin: 12/25/18 09:18 Dose: Not Given Clopidogrel Bisulfate (Plavix) 75 mg PO DAILY [facility] Last Admin: 12/25/18 09:22 Dose: 75 mg Enoxaparin Sodium (Lovenox) 40 mg SC DAILY@1000 [facility] Last Admin: 12/25/18 09:21 Dose: 40 mg Escitalopram Oxalate (Lexapro) 10 mg PO DAILY [facility] Last Admin: 12/25/18 09:22 Dose: 10 mg Gabapentin (Neurontin) 800 mg PO 0800,1700,2200 [facility] Last Admin: 12/25/18 09:15 Dose: 800 mg Hydralazine HCl (Apresoline Iv) 10 mg IV Q4H PRN PRN PRN Reason: SBP > 160 Last Admin: 12/25/18 04:41 Dose: 10 mg Sodium Chloride () 1,000 mls @ 100 mls/hr IV .Q10H [facility] Last Admin: 12/25/18 02:36 Dose: 100 mls/hr Cefazolin Sodium 2 gm/ Sodium (Chloride) 110 mls @ 150 mls/hr IV Q8 [facility] Insulin Glargine (Lantus (Bkc)) 30 units SC 0800 [facility] Last Admin: 12/24/18 08:40 Dose: 30 u Insulin Human Lispro (Humalog Kwikpen (Bkc)) 0 unit SC Q6 [facility]; Protocol Last Admin: 12/25/18 05:50 Dose: Not Given Lisinopril (Zestril) 5 mg PO DAILY [facility] Last Admin: 12/25/18 09:25 Dose: 5 mg Magnesium Hydroxide (Milk Of Magnesia) 30 ml PO DAILY PRN PRN PRN Reason: Constipation Last Admin: 12/24/18 08:44 Dose: 30 ml Magnesium Hydroxide (Milk Of Magnesia) 30 ml PO DAILY PRN PRN PRN Reason: Constipation Metoprolol Tartrate (Lopressor (Beta Tin)) 12.5 mg PO BID [facility] Last Admin: 12/25/18 09:18 Dose: 12.5 mg Morphine Sulfate () 1 mg IV Q4H PRN PRN PRN Reason: PAIN Last Admin: 12/25/18 09:25 Dose: 1 mg Ondansetron HCl (Zofran) 4 mg IV Q8H PRN PRN PRN Reason: NAUSEA/VOMITING Last Admin: 12/24/18 20:50 Dose: 4 mg Oxycodone HCl (Oxyir) 5 mg PO Q6H PRN PRN PRN Reason: SEVERE PAIN (6-10/10) Pramipexole Dihydrochloride (Mirapex) 1.5 mg PO BID [facility] Last Admin: 12/25/18 09:21 Dose: 1.5 mg Promethazine HCl (Phenergan) 6.25 mg IV Q4H PRN PRN PRN Reason: NAUSEA/VOMITING Last Admin: 12/25/18 09:25 Dose: 6.25 mg Sodium Chloride () 5 - 15 ml IV UD PRN PRN Reason: SALINE FLUSH Last Admin: 12/25/18 09:26 Dose: 5 ml Zolpidem Tartrate (Ambien (Generic)) 5 mg PO QHS PRN PRN PRN Reason: INSOMNIA Last Admin: 12/24/18 23:59 Dose: 5 mg Medical Necessity - Tobacco Use Smoking Status: Never smoker Tobacco Use: Non-smoker Assessment/Plan All Active Problems (Last Reviewed 12/25/18 @ 16:03 by Jamee Sawant PA-C) Intractable nausea and vomiting (Acute) Chest pain (Resolved) Osteomyelitis (Resolved) Severe sepsis (Acute) Wound of foot (Acute) NSTEMI (non-ST elevated myocardial infarction) (Resolved) Diabetic foot ulcer associated with type 2 diabetes mellitus (Acute) 53-year-old female with past medical history of type 2 diabetes, hypertension, hyperlipidemia, CKD stage III, who comes in with right foot wound infection and found to be in severe sepsis. 1. Nausea and vomiting, unclear etiology for now, ileus ruled out with nonspecific bowel pattern on KUB Suspect gastroparesis, will start on reglan IV, PPI General surgery consult 2. Severe sepsis secondary to MSSA right ankle abscess, improving Stable vitals, no leukocytosis, on vancomycin and ceftriaxone Wound cultures growing staph aureus, negative blood cultures 3. MSSA right ankle status post I & D on 12/21/18, local wound exam notes by podiatry was noted. Wound appears macerated, Plastic surgery consulted, will await definitive recommendations. 4. Right lower leg swelling, significantly swollen more than the left, Doppler ultrasound preliminarily negative. Likely a local effect 5. Type 2 DM, complicated by neuropathy, history of noncompliance, sugars are better controlled Continue on 30 units of Lantus, 20 units pre-meal lispro as well as insulin sliding scale, Continue to monitor blood sugars with Accu-Cheks and insulin sliding scale 6. CAD, no acute symptomatic, on plavix, statin 7. Hypertension, controlled, on Lisinopril, metoprolol\ Will continue to monitor 8. Hyperlipidemia, on statin 9. CKD stage 3 secondary diabetic nephropathy, stable, Cr at 1.03, labs in am 10. Anxiety disorder, on Lexapro 11. DVT PPx- Lovenox SC 12. Disposition: Possible DC to SNF in the next 2-3 days, when ok by podiatry Code Visit Inpatient E&M: 46418 Subs Hosp L2
[2018-12-25] MEDS: Potassium Chloride 10mEq/100mL 10 MEQ/100 ML IV.SOLN. 100 MEQ IV BOLUS ×4 (11:20→14:38)
[2018-12-25] MEDS: oxyCODONE 5 MG Tablet PO ×3 (11:23→23:21)
[2018-12-25 11:56] LABS: Bedside Glucose 129 mg/dL (70-110)
--- NOTE | 2018-12-25 12:16 | CASEMGMT ---
Social Work: Spoke with hospitalist who states that patient will not be ready for D/C today. TC to [facility]. Update given. will continue to follow to assist as needed with D/C planning. FRANCISCO Grimes
--- NOTE | 2018-12-25 13:59 | CON.PCM_ITS ---
<Landen Allen - Last Filed: 12/25/18 15:23> Reason for Consult History of Present Illness: The patient is a 53 year old F [] Past Medical History Past Medical History (Chronic Problems): Chronic Problems (Last Reviewed 12/25/18 @ 16:03 by Jamee Sawant PA-C) CAD (coronary artery disease) (Chronic) HTN (hypertension) (Chronic) HLD (hyperlipidemia) (Chronic) Neuropathic pain (Chronic) GERD (gastroesophageal reflux disease) (Chronic) Hypomagnesemia (Chronic) Back pain, chronic (Chronic) Depression (Chronic) RLS (restless legs syndrome) (Chronic) Type II diabetes mellitus, uncontrolled (Chronic) Anxiety state (Chronic) Medical History: Medical History (Last Reviewed 09/28/18 @ 15:32 by Saravanan Jean Baptiste MD) HLD (hyperlipidemia) (Chronic) E78.5 Allergies oxycodone [From OxyContin] Allergy (Verified 12/20/18 23:10) Shortness of breath Penicillins Allergy (Verified 12/20/18 23:10) Shortness of breath metronidazole Adverse Reaction (Verified 12/24/18 17:28) Nausea Home Medications: Ambulatory Orders Medication Instructions Recorded Ascorbic Acid [Vitamin C] 500 mg PO BIDCM 09/20/18 Gabapentin [Neurontin] 800 mg PO TIDCM 09/20/18 Insulin Aspart [Novolog Flexpen] 20 units SUBCUT TIDCM 09/20/18 Insulin Glargine [Lantus SoloStar 30 units SUBCUT 0800 09/20/18 Pen] Ropinirole HCl [Requip] 3 mg PO BID 09/20/18 Atorvastatin Calcium [Lipitor] 80 mg PO QHS 09/23/18 Lisinopril [Zestril] 5 mg PO DAILY 09/23/18 Metoprolol Tartrate [Lopressor 12.5 mg PO BID 09/23/18 (beta tin)] escitalopram 10 mg tablet 10 mg PO DAILY 09/28/18 promethazine 25 mg tablet 25 mg PO Q6H PRN 09/28/18 Insulin Lispro [Humalog KwikPen] See Protocol SQ ACHS insuln.pen 11/11/18 Mag Hydrox/Al Hydrox/Simeth 30 ml PO Q6H PRN PRN udc 11/11/18 [Mylanta II] Magnesium Hydroxide [Milk Of 30 ml PO DAILY PRN PRN udc 11/11/18 Magnesia] Clopidogrel Bisulfate [Plavix] 75 mg PO DAILY 12/21/18 Patient Problems: Active and Suspected Problems (Last Reviewed 12/25/18 @ 16:03 by Jamee Sawant PA-C) Intractable nausea and vomiting (Acute) Severe sepsis (Acute) Wound of foot (Acute) - Physical Exam Vital Signs Temp Pulse Resp BP Pulse Ox 98.9 F 98 16 169/95 H 95 12/25/18 14:40 12/25/18 14:50 12/25/18 14:40 12/25/18 14:50 12/25/18 14:40 Oxygen Delivery Method Room Air Weight: 84.538 kg Body Mass Index (BMI) 30.0 Finger Stick Blood Glucose 271 Intake and Output for Last 24 Hours 12/23/18 12/24/18 12/25/18 23:59 23:59 23:59 Intake Total 3411 / 3411 3410 / 3410 2141 / 2141 Output Total 500 / 500 800 / 800 1700 / 1700 Balance 2911 / 2911 2610 / 2610 441 / 441 Microbiology Past 72 Hours 12/21/18 16:44 Gram Stain - Final Biopsy - Ankle Wound Culture - Final Staphylococcus aureus Anaerobic Culture - Final No anaerobic bacteria isolated. 12/21/18 02:23 Blood Culture - Preliminary Blood Culture (Wb) - Anticubital Right No growth in 48 hours. 12/21/18 02:16 Blood Culture - Preliminary Blood Culture (Wb) - Anticubital Left No growth in 48 hours. Laboratory Tests Past 24 Hrs 12/24/18 12/25/18 12/25/18 15:40 05:10 05:10 WBC 9.4 RBC 3.51 L Hgb 9.3 L Hct 30.2 L MCV 86.0 MCH 26.5 L MCHC 30.8 L RDW 14.9 H RDW Differential 45.0 H Plt Count 306 MPV 10.7 Immature Gran % (Auto) 0.400 Neut % (Auto) 79.8 H Lymph % (Auto) 11.7 L [place] % (Auto) 6.6 Eos % (Auto) 1.3 Baso % (Auto) 0.2 Absolute Neuts (auto) 7.5 Absolute Lymphs (auto) 1.10 Total Counted Not Reportable Sodium 140 Potassium 3.3 L Chloride 111 H Carbon Dioxide 22.0 Anion Gap 7 BUN 6 L Creatinine 0.65 Estim Creat Clear Calc 93.70 Est GFR (MDRD) Af Amer 123 Est GFR (MDRD) Non-Af 102 BUN/Creatinine Ratio 9.3 L Glucose 102 Calcium 7.4 L Magnesium Vancomycin Trough 13.3 12/25/18 05:10 WBC RBC Hgb Hct MCV MCH MCHC RDW RDW Differential Plt Count MPV Immature Gran % (Auto) Neut % (Auto) Lymph % (Auto) [place] % (Auto) Eos % (Auto) Baso % (Auto) Absolute Neuts (auto) Absolute Lymphs (auto) Total Counted Sodium Potassium Chloride Carbon Dioxide Anion Gap BUN Creatinine Estim Creat Clear Calc Est GFR (MDRD) Af Amer Est GFR (MDRD) Non-Af BUN/Creatinine Ratio Glucose Calcium Magnesium 1.7 Vancomycin Trough POC Glucose 12/25/18 12/25/18 12/24/18 11:52 05:48 23:52 POC Glucose 129 H 122 H 109 12/24/18 16:09 POC Glucose 150 H Assessment/Plan All Active Problems (Last Reviewed 12/25/18 @ 16:03 by Jamee Sawant PA-C) Intractable nausea and vomiting (Acute) Chest pain (Resolved) Osteomyelitis (Resolved) Severe sepsis (Acute) Wound of foot (Acute) NSTEMI (non-ST elevated myocardial infarction) (Resolved) Diabetic foot ulcer associated with type 2 diabetes mellitus (Acute) <Shayne Taylor - Last Filed: 12/25/18 17:50> Reason for Consult Date of Consultation: 12/25/18 Reason for Consultation: Diabetic ulcer abscess right lateral malleolus. REFERRING PHYSICIAN: Dr. Allen. [employer] INTEGRATION DEVELOPER: Dr. Taylor. History of Present Illness: The patient is a 53 year old F [] Past Medical History Medical History: Medical History (Last Reviewed 12/25/18 @ 16:03 by Jamee Sawant PA-C) HLD (hyperlipidemia) (Chronic) E78.5 Allergies oxycodone [From OxyContin] Allergy (Verified 12/20/18 23:10) Shortness of breath Penicillins Allergy (Verified 12/20/18 23:10) Shortness of breath metronidazole Adverse Reaction (Verified 12/24/18 17:28) Nausea Current Medications Acetaminophen (Tylenol) 650 mg PO Q6H PRN PRN PRN Reason: Non-cardiac pain (mod-severe) Last Admin: 12/22/18 02:31 Dose: 650 mg Al Hydroxide/Mg Hydroxide (Mylanta Ii) 30 ml PO Q6H PRN PRN PRN Reason: Gastric burning Ascorbic Acid (Vitamin C) 500 mg PO BIDCM [facility] Last Admin: 12/25/18 09:18 Dose: 500 mg Atorvastatin Calcium (Lipitor) 80 mg PO QHS [facility] Last Admin: 12/24/18 21:45 Dose: 80 mg Bisacodyl (Dulcolax) 10 mg RECTAL DAILY [facility] Last Admin: 12/25/18 09:18 Dose: Not Given Clopidogrel Bisulfate (Plavix) 75 mg PO DAILY [facility] Last Admin: 12/25/18 09:22 Dose: 75 mg Enoxaparin Sodium (Lovenox) 40 mg SC DAILY@1000 [facility] Last Admin: 12/25/18 09:21 Dose: 40 mg Gabapentin (Neurontin) 800 mg PO 0800,1700,2200 [facility] Last Admin: 12/25/18 09:15 Dose: 800 mg Hydralazine HCl (Apresoline Iv) 10 mg IV Q4H PRN PRN PRN Reason: SBP > 160 Last Admin: 12/25/18 04:41 Dose: 10 mg Sodium Chloride () 1,000 mls @ 100 mls/hr IV .Q10H [facility] Last Admin: 12/25/18 02:36 Dose: 100 mls/hr Cefazolin Sodium 2 gm/ Sodium (Chloride) 110 mls @ 150 mls/hr IV Q8 [facility] Potassium Chloride () 10 meq in 100 mls @ 100 mls/hr IV BOLUS Q1H [facility] Stop: 12/25/18 14:59 Last Admin: 12/25/18 13:39 Dose: 100 mls/hr Pantoprazole Sodium 40 mg/ (Sodium Chloride) 110 mls @ 330 mls/hr IV Q12 [facility] Insulin Glargine (Lantus (Bkc)) 30 units SC 0800 [facility] Last Admin: 12/24/18 08:40 Dose: 30 u Insulin Human Lispro (Humalog Kwikpen (Bkc)) 0 unit SC Q6 [facility]; Protocol Last Admin: 12/25/18 11:53 Dose: Not Given Lisinopril (Zestril) 5 mg PO DAILY [facility] Last Admin: 12/25/18 09:25 Dose: 5 mg Magnesium Hydroxide (Milk Of Magnesia) 30 ml PO DAILY PRN PRN PRN Reason: Constipation Last Admin: 12/24/18 08:44 Dose: 30 ml Magnesium Hydroxide (Milk Of Magnesia) 30 ml PO DAILY PRN PRN PRN Reason: Constipation Metoclopramide HCl (Reglan) 5 mg IV Q6H PRN PRN PRN Reason: NAUSEA Metoprolol Tartrate (Lopressor (Beta Tin)) 12.5 mg PO BID [facility] Last Admin: 12/25/18 09:18 Dose: 12.5 mg Morphine Sulfate () 1 mg IV Q4H PRN PRN PRN Reason: PAIN Last Admin: 12/25/18 09:25 Dose: 1 mg Ondansetron HCl (Zofran) 4 mg IV Q8H PRN PRN PRN Reason: NAUSEA/VOMITING Last Admin: 12/24/18 20:50 Dose: 4 mg Oxycodone HCl (Oxyir) 5 mg PO Q6H PRN PRN PRN Reason: SEVERE PAIN (6-10/10) Last Admin: 12/25/18 11:23 Dose: 5 mg Pramipexole Dihydrochloride (Mirapex) 1.5 mg PO BID [facility] Last Admin: 12/25/18 09:21 Dose: 1.5 mg Promethazine HCl (Phenergan) 6.25 mg IV Q4H PRN PRN PRN Reason: NAUSEA/VOMITING Last Admin: 12/25/18 09:25 Dose: 6.25 mg Sodium Chloride () 5 - 15 ml IV UD PRN PRN Reason: SALINE FLUSH Last Admin: 12/25/18 09:26 Dose: 5 ml Zolpidem Tartrate (Ambien (Generic)) 5 mg PO QHS PRN PRN PRN Reason: INSOMNIA Last Admin: 12/24/18 23:59 Dose: 5 mg Surgical History: - - Severel R foot toe ambuations and I+Ds, BL carpal tunnel surgery 1994, right shoulder surgery in 1994, section x2, most recently LLE I+D. Psychiatric History: Anxiety, Depression BOX FEEDER History: No pertinent BOX FEEDER history Lives: Spouse/ Significant Other Smoking Status: Never smoker Tobacco Use: Non-smoker Alcohol: None Drugs: None - *Family History Maternal History Items: Cancer - Patient had a brother who had testicular cancer; and later cancer in his stomach., Diabetes, Hypertension, - - Her mother at the age of 67 to a blood clot to the brain. She had had multiple strokes preceding that. Patient had 3 brothers who had bypass surgery in their 50s. Paternal History Items: - - Patient states her father when she was 5 years old, denies known medical history, denies known cardiac history. Sibling History Items: - - She has one brother who is secondary to cancer and she does not know what kind of cancer he had. She also has 3 brothers with a history of cardiovascular disease, stents and coronary artery bypass grafting. - Physical Exam Vital Signs Temp Pulse Resp BP Pulse Ox 99.1 F 101 H 18 150/83 H 93 12/25/18 09:15 12/25/18 09:18 12/25/18 09:15 12/25/18 09:15 12/25/18 09:15 Oxygen Delivery Method Room Air Weight: 186 lb 5.99 oz Body Mass Index (BMI) 30.0 Finger Stick Blood Glucose 271 Intake and Output for Last 24 Hours 12/23/18 12/24/18 12/25/18 23:59 23:59 23:59 Intake Total 3411 / 3411 3410 / 3410 2141 / 2141 Output Total 500 / 500 800 / 800 1700 / 1700 Balance 2911 / 2911 2610 / 2610 441 / 441 Microbiology Past 72 Hours 12/21/18 16:44 Gram Stain - Final Biopsy - Ankle Wound Culture - Final Staphylococcus aureus Anaerobic Culture - Final No anaerobic bacteria isolated. 12/21/18 02:23 Blood Culture - Preliminary Blood Culture (Wb) - Anticubital Right No growth in 48 hours. 12/21/18 02:16 Blood Culture - Preliminary Blood Culture (Wb) - Anticubital Left No growth in 48 hours. Laboratory Tests Past 24 Hrs 12/24/18 12/25/18 12/25/18 15:40 05:10 05:10 WBC 9.4 RBC 3.51 L Hgb 9.3 L Hct 30.2 L MCV 86.0 MCH 26.5 L MCHC 30.8 L RDW 14.9 H RDW Differential 45.0 H Plt Count 306 MPV 10.7 Immature Gran % (Auto) 0.400 Neut % (Auto) 79.8 H Lymph % (Auto) 11.7 L [place] % (Auto) 6.6 Eos % (Auto) 1.3 Baso % (Auto) 0.2 Absolute Neuts (auto) 7.5 Absolute Lymphs (auto) 1.10 Total Counted Not Reportable Sodium 140 Potassium 3.3 L Chloride 111 H Carbon Dioxide 22.0 Anion Gap 7 BUN 6 L Creatinine 0.65 Estim Creat Clear Calc 93.70 Est GFR (MDRD) Af Amer 123 Est GFR (MDRD) Non-Af 102 BUN/Creatinine Ratio 9.3 L Glucose 102 Calcium 7.4 L Magnesium Vancomycin Trough 13.3 12/25/18 05:10 WBC RBC Hgb Hct MCV MCH MCHC RDW RDW Differential Plt Count MPV Immature Gran % (Auto) Neut % (Auto) Lymph % (Auto) [place] % (Auto) Eos % (Auto) Baso % (Auto) Absolute Neuts (auto) Absolute Lymphs (auto) Total Counted Sodium Potassium Chloride Carbon Dioxide Anion Gap BUN Creatinine Estim Creat Clear Calc Est GFR (MDRD) Af Amer Est GFR (MDRD) Non-Af BUN/Creatinine Ratio Glucose Calcium Magnesium Pending Vancomycin Trough POC Glucose 12/25/18 12/25/18 12/24/18 11:52 05:48 23:52 POC Glucose 129 H 122 H 109 12/24/18 16:09 POC Glucose 150 H
[2018-12-25 14:09] LABS: Magnesium 1.7 mg/dL (1.6-2.6)
[2018-12-25] MEDS: Metoclopramide 10 MG/2 ML Vial 5 MG IV (14:38)
[2018-12-25] MEDS: Cefazolin 2 GM in 0.9% Normal Saline 100 ML IV ×2 (14:38→21:37)
--- NOTE | 2018-12-25 15:50 | NURSING ---
Dr Allen in to see patient. Dr Taylor had also been in to see patient earlier and plans to take patient for more surgical debridement tomorrow or Tuesday.
--- NOTE | 2018-12-25 15:57 | PCM.CONS.GEN ---
Problem List (1) Intractable nausea and vomiting Status: Acute Reason for Consult Date of Consultation: 12/25/18 Reason for Consultation: Intractable nausea/vomiting History of Present Illness: The patient is a 53 year old F who presented to ED with right foot/ankle abscess and left foot ulceration. During this hospitalization she was also noted to have intractable nausea, vomiting. She is a poorly controlled diabetic. She also notes bloating. She denies these symptoms as an outpatient. Patient is maintained on Plavix secondary to a myocardial infraction in September. Patient also had cardiac stents placed. 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 She notes reflux. She denies taking PPI's. Past Medical History Past Medical History (Chronic Problems): Chronic Problems (Last Reviewed 12/25/18 @ 16:03 by Jamee Sawant PA-C) CAD (coronary artery disease) (Chronic) HTN (hypertension) (Chronic) HLD (hyperlipidemia) (Chronic) Neuropathic pain (Chronic) GERD (gastroesophageal reflux disease) (Chronic) Hypomagnesemia (Chronic) Back pain, chronic (Chronic) Depression (Chronic) RLS (restless legs syndrome) (Chronic) Type II diabetes mellitus, uncontrolled (Chronic) Anxiety state (Chronic) Medical History: Medical History (Last Reviewed 12/25/18 @ 16:03 by Jamee Sawant PA-C) HLD (hyperlipidemia) (Chronic) E78.5 Allergies oxycodone [From OxyContin] Allergy (Verified 12/20/18 23:10) Shortness of breath Penicillins Allergy (Verified 12/20/18 23:10) Shortness of breath metronidazole Adverse Reaction (Verified 12/24/18 17:28) Nausea Home Medications: Ambulatory Orders Medication Instructions Recorded Ascorbic Acid [Vitamin C] 500 mg PO BIDCM 09/20/18 Gabapentin [Neurontin] 800 mg PO TIDCM 09/20/18 Insulin Aspart [Novolog Flexpen] 20 units SUBCUT TIDCM 09/20/18 Insulin Glargine [Lantus SoloStar 30 units SUBCUT 0800 09/20/18 Pen] Ropinirole HCl [Requip] 3 mg PO BID 09/20/18 Atorvastatin Calcium [Lipitor] 80 mg PO QHS 09/23/18 Lisinopril [Zestril] 5 mg PO DAILY 09/23/18 Metoprolol Tartrate [Lopressor 12.5 mg PO BID 09/23/18 (beta kunal)] escitalopram 10 mg tablet 10 mg PO DAILY 09/28/18 promethazine 25 mg tablet 25 mg PO Q6H PRN 09/28/18 Insulin Lispro [Humalog KwikPen] See Protocol SQ ACHS insuln.pen 11/11/18 Mag Hydrox/Al Hydrox/Simeth 30 ml PO Q6H PRN PRN udc 11/11/18 [Mylanta II] Magnesium Hydroxide [Milk Of 30 ml PO DAILY PRN PRN udc 11/11/18 Magnesia] Clopidogrel Bisulfate [Plavix] 75 mg PO DAILY 12/21/18 Surgical History: - - Severel R foot toe ambuations and I+Ds, BL carpal tunnel surgery 1994, right shoulder surgery in 1994, section x2, most recently LLE I+D. 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 She had had multiple strokes preceding that. Patient had 3 brothers who had bypass surgery in their 50s. Paternal History Items: - - Patient states her father when she was 5 years old, denies known medical history, denies known cardiac history. Sibling History Items: - - She has one brother who is secondary to cancer and she does not know what kind of cancer he had. She also has 3 brothers with a history of cardiovascular disease, stents and coronary artery bypass grafting. Review of Systems Constitutional: Reports: Anorexia HEENT: Denies: Head Aches, Sinus Congestion, Sinus Drainage Cardiovascular: Denies: Chest Pain, Palpitations Respiratory: Denies: Cough, Shortness of breath at rest, Sputum production Gastrointestinal: Reports: Nausea, Vomiting, - - bloating Genitourinary: Denies: Dysuria Musculoskeletal: Reports: Foot Pain, Leg Pain Skin: Denies: Rash, Wounds Neurological: Reports: Balance problems Psychiatric: Reports: Anxiety, Depression Hematologic/ Lymphatic: Reports: Anemia, Easy Bruising, Easy Bleeding Patient Problems: Active and Suspected Problems (Last Reviewed 12/25/18 @ 16:03 by Jamee Sawant PA-C) Intractable nausea and vomiting (Acute) Severe sepsis (Acute) Wound of foot (Acute) - Physical Exam General: Alert, Oriented x3, Cooperative HEENT: Atraumatic, PERRLA, EOMI, Normocephalic Neck: Supple, No JVD, Negative Carotid Bruits Lungs: Clear to auscultation, Normal air movement Cardiovascular: Regular rate, No murmurs Abdomen: Soft, Hypoactive Bowel Sounds, Distended, Tender - epigastric region Extremities: No edema, Capillary Refill Less than 3 Seconds Skin: Ulcer/ Wound - bilateral feet/ankle Musculoskeletal: No Tenderness to Palpation of Joints or Extremities Neurological: Neuro grossly intact Psych/Mental Status: Normal Affect Vital Signs Temp Pulse Resp BP Pulse Ox 98.9 F 98 16 169/95 H 95 12/25/18 14:40 12/25/18 14:50 12/25/18 14:40 12/25/18 14:50 12/25/18 14:40 Oxygen Delivery Method Room Air Weight: 186 lb 5.99 oz Body Mass Index (BMI) 30.0 Finger Stick Blood Glucose 271 Intake and Output for Last 24 Hours 12/23/18 12/24/18 12/25/18 23:59 23:59 23:59 Intake Total 3411 / 3411 3410 / 3410 2141 / 2141 Output Total 500 / 500 800 / 800 1700 / 1700 Balance 2911 / 2911 2610 / 2610 441 / 441 Microbiology Past 72 Hours 12/21/18 16:44 Gram Stain - Final Biopsy - Ankle Wound Culture - Final Staphylococcus aureus Anaerobic Culture - Final No anaerobic bacteria isolated. 12/21/18 02:23 Blood Culture - Preliminary Blood Culture (Wb) - Anticubital Right No growth in 48 hours. 12/21/18 02:16 Blood Culture - Preliminary Blood Culture (Wb) - Anticubital Left No growth in 48 hours. Laboratory Tests Past 24 Hrs 12/24/18 12/25/18 12/25/18 15:40 05:10 05:10 WBC 9.4 RBC 3.51 L Hgb 9.3 L Hct 30.2 L MCV 86.0 MCH 26.5 L MCHC 30.8 L RDW 14.9 H RDW Differential 45.0 H Plt Count 306 MPV 10.7 Immature Gran % (Auto) 0.400 Neut % (Auto) 79.8 H Lymph % (Auto) 11.7 L [place] % (Auto) 6.6 Eos % (Auto) 1.3 Baso % (Auto) 0.2 Absolute Neuts (auto) 7.5 Absolute Lymphs (auto) 1.10 Total Counted Not Reportable Sodium 140 Potassium 3.3 L Chloride 111 H Carbon Dioxide 22.0 Anion Gap 7 BUN 6 L Creatinine 0.65 Estim Creat Clear Calc 93.70 Est GFR (MDRD) Af Amer 123 Est GFR (MDRD) Non-Af 102 BUN/Creatinine Ratio 9.3 L Glucose 102 Calcium 7.4 L Magnesium Vancomycin Trough 13.3 12/25/18 05:10 WBC RBC Hgb Hct MCV MCH MCHC RDW RDW Differential Plt Count MPV Immature Gran % (Auto) Neut % (Auto) Lymph % (Auto) [place] % (Auto) Eos % (Auto) Baso % (Auto) Absolute Neuts (auto) Absolute Lymphs (auto) Total Counted Sodium Potassium Chloride Carbon Dioxide Anion Gap BUN Creatinine Estim Creat Clear Calc Est GFR (MDRD) Af Amer Est GFR (MDRD) Non-Af BUN/Creatinine Ratio Glucose Calcium Magnesium 1.7 Vancomycin Trough POC Glucose 12/25/18 12/25/18 12/24/18 11:52 05:48 23:52 POC Glucose 129 H 122 H 109 12/24/18 16:09 POC Glucose 150 H Assessment/Plan All Active Problems (Last Reviewed 12/25/18 @ 16:03 by Jamee Sawant PA-C) Intractable nausea and vomiting (Acute) Chest pain (Resolved) Osteomyelitis (Resolved) Severe sepsis (Acute) Wound of foot (Acute) NSTEMI (non-ST elevated myocardial infarction) (Resolved) Diabetic foot ulcer associated with type 2 diabetes mellitus (Acute) I have been consulted in conjunction with Dr. Aden Impression: Intractable nausea, vomiting Plan: I have briefly discussed this patient with Dr. Aden. After further discussion with Dr. Aden, we will plan to obtain an upper GI study and gastric emptying study. An EGD was also discussed, however we will decide on whether to proceed with this procedure following the results of the imaging. This has been discussed with the patient. We will plan to proceed once time permits. Patient and her daughter have had the opportunity to ask and have questions answered. Patient verbally understands and agrees with the plan. Code Visit Office Visits / Consults: [id number] IP Consult L3
--- NOTE | 2018-12-25 15:59 | PN.SURG_ITS ---
Patient Problems: Active and Suspected Problems (Last Reviewed 09/28/18 @ 15:32 by Saravanan Jean Baptiste MD) Severe sepsis (Acute) Wound of foot (Acute) Subjective: Patient seen at bedside this afternoon. Patient denies vomiting, fever, chills. does complain of nausea. Dr. Cook is on consult. Dr. Taylor has seen patient and has discussed possible further surgical debridement with patient and possible wound vac application. patient with no other complaints. Objective: Patient is alert and orientated x 3. patient does not appear in any distress vascular: Dp and PT pulses are palpable b/l. CFT is less than 5 seconds. skin temperature is warm to warm. no erythema is present to b/l lower extremity Derm: there is full thickness ulceration of right lateral ankle. There is mixture of fibrotic/granular tissue in base of ulceration. there is deroofed blister to the lateral aspect of right ankle. no drainage is noted to right lateral ankle. no signs of cellulitis. left foot ulceration is superficial and shows reduction in size. there is vinicius- wound hyperkeratosis which was debrided today. the left foot ulceration measures 1.3 cm x 0.8 cm. there are no signs of infection. m/s: there is mild pain to palpation of right lateral ankle. xrays of right ankle reviewed. there is soft-tissue swelling. no gas in soft tissue. no evidence of bone infection. - Physical Exam Vital Signs Temp Pulse Resp BP Pulse Ox 98.9 F 98 16 169/95 H 95 12/25/18 14:40 12/25/18 14:50 12/25/18 14:40 12/25/18 14:50 12/25/18 14:40 Oxygen Delivery Method Room Air Weight: 84.538 kg Body Mass Index (BMI) 30.0 Finger Stick Blood Glucose 271 Intake and Output for Last 24 Hours 12/23/18 12/24/18 12/25/18 23:59 23:59 23:59 Intake Total 3411 / 3411 3410 / 3410 2141 / 2141 Output Total 500 / 500 800 / 800 1700 / 1700 Balance 2911 / 2911 2610 / 2610 441 / 441 Microbiology Past 72 Hours 12/21/18 16:44 Gram Stain - Final Biopsy - Ankle Wound Culture - Final Staphylococcus aureus Anaerobic Culture - Final No anaerobic bacteria isolated. 12/21/18 02:23 Blood Culture - Preliminary Blood Culture (Wb) - Anticubital Right No growth in 48 hours. 12/21/18 02:16 Blood Culture - Preliminary Blood Culture (Wb) - Anticubital Left No growth in 48 hours. Laboratory Tests Past 24 Hrs 12/24/18 12/25/18 12/25/18 15:40 05:10 05:10 WBC 9.4 RBC 3.51 L Hgb 9.3 L Hct 30.2 L MCV 86.0 MCH 26.5 L MCHC 30.8 L RDW 14.9 H RDW Differential 45.0 H Plt Count 306 MPV 10.7 Immature Gran % (Auto) 0.400 Neut % (Auto) 79.8 H Lymph % (Auto) 11.7 L [place] % (Auto) 6.6 Eos % (Auto) 1.3 Baso % (Auto) 0.2 Absolute Neuts (auto) 7.5 Absolute Lymphs (auto) 1.10 Total Counted Not Reportable Sodium 140 Potassium 3.3 L Chloride 111 H Carbon Dioxide 22.0 Anion Gap 7 BUN 6 L Creatinine 0.65 Estim Creat Clear Calc 93.70 Est GFR (MDRD) Af Amer 123 Est GFR (MDRD) Non-Af 102 BUN/Creatinine Ratio 9.3 L Glucose 102 Calcium 7.4 L Magnesium Vancomycin Trough 13.3 12/25/18 05:10 WBC RBC Hgb Hct MCV MCH MCHC RDW RDW Differential Plt Count MPV Immature Gran % (Auto) Neut % (Auto) Lymph % (Auto) [place] % (Auto) Eos % (Auto) Baso % (Auto) Absolute Neuts (auto) Absolute Lymphs (auto) Total Counted Sodium Potassium Chloride Carbon Dioxide Anion Gap BUN Creatinine Estim Creat Clear Calc Est GFR (MDRD) Af Amer Est GFR (MDRD) Non-Af BUN/Creatinine Ratio Glucose Calcium Magnesium 1.7 Vancomycin Trough POC Glucose 12/25/18 12/25/18 12/24/18 11:52 05:48 23:52 POC Glucose 129 H 122 H 109 12/24/18 16:09 POC Glucose 150 H Medical Necessity - Tobacco Use Smoking Status: Never smoker Tobacco Use: Non-smoker Assessment/Plan All Active Problems (Last Reviewed 09/28/18 @ 15:32 by Saravanan Jean Baptiste MD) Chest pain (Resolved) Osteomyelitis (Resolved) Severe sepsis (Acute) Wound of foot (Acute) NSTEMI (non-ST elevated myocardial infarction) (Resolved) Diabetic foot ulcer associated with type 2 diabetes mellitus (Acute) patient was examined this afternoon. the right lateral leg ulceration appears free of any infection. There is no drainage. there is maceration along incision and therefore, we have elected to hold on wound vac application. I have consulted plastic surgery to discuss options of for possible rotational flap. patient hemoglobin A1C is poorly controlled and likely not ideal candidate. Dr. Taylor has evaluated patient and after discussing with Tiffany Campo and patient herself, there is possible plan for Dr. Taylor to transfer care and perform debridement and application of wound vac. I will discuss with Dr. Taylor. If Dr. Taylor would like to transfer care to perform debridement, I would be fine with this. patient would then follow-up for right ankle with Dr. Taylor. her left foot ulceration appears stable. today, sharp debridement of nonviable tissue was performed with 15 blade. bleeding present and controlled with pressure. will continue with srinivas and nwb to left foot. she is instructed to remain nwb to allow this foot ulceration to heal.
[2018-12-25 17:20] LABS: Bedside Glucose 122 mg/dL (70-110)
--- NOTE | 2018-12-25 17:52 | CON.PCM_ITS ---
Reason for Consult Date of Consultation: 12/25/18 Reason for Consultation: Diabetic ulcer abscess right lateral malleolus. REFERRING PHYSICIAN: Dr. Allen. SHALLOT PACKER: Dr. Tyalor. History of Present Illness: The patient is a 53 year old F was recently admitted to the hospital on 12/21/18 with a right foot infection. Her WBC was 19.4 and has improved to 9.4 after surgery on 12/22/[address] Allen where he performed an incision and drainage of a right lateral ankle infection. Wound care was started with Betadine dressings and was changed to a Silver dressing. Initially a VAC was planned but was put on hold because of persistent swelling in the foolt and maceration of the periwound area and worsening of the surrounding compromised skin. She is currently on Ancef for a wound culture that showed Staphylococcus aureus. She denies fever. Her HgbA1c is elevated at 12.2. She had an MRI on 12/21/18. It showed soft tissue abscess adjacent to the lateral malleolus without MRI manifestations of osteomyelitis of the lateral malleolus. I was asked to evaluate this patient for surgical options for treatment. Past Medical History Past Medical History (Chronic Problems): Chronic Problems (Last Reviewed 12/25/18 @ 16:03 by Jamee Sawant PA-C) CAD (coronary artery disease) (Chronic) HTN (hypertension) (Chronic) HLD (hyperlipidemia) (Chronic) Neuropathic pain (Chronic) GERD (gastroesophageal reflux disease) (Chronic) Hypomagnesemia (Chronic) Back pain, chronic (Chronic) Depression (Chronic) RLS (restless legs syndrome) (Chronic) Type II diabetes mellitus, uncontrolled (Chronic) Anxiety state (Chronic) Medical History: Medical History (Last Reviewed 12/25/18 @ 16:03 by Jamee Sawant PA-C) HLD (hyperlipidemia) (Chronic) E78.5 Allergies oxycodone [From OxyContin] Allergy (Verified 12/20/18 23:10) Shortness of breath Penicillins Allergy (Verified 12/20/18 23:10) Shortness of breath metronidazole Adverse Reaction (Verified 12/24/18 17:28) Nausea Current Medications Acetaminophen (Tylenol) 650 mg PO Q6H PRN Al Hydroxide/Mg Hydroxide (Mylanta Ii) 30 ml PO Q6H PRN Ascorbic Acid (Vitamin C) 500 mg PO BIDCM TAB Atorvastatin Calcium (Lipitor) 80 mg PO QHS [facility] Clopidogrel Bisulfate (Plavix) 75 mg PO DAILY [facility] Enoxaparin Sodium (Lovenox) 40 mg SC DAILY@1000 [facility] Gabapentin (Neurontin) 800 mg PO 0800,1700,2200 [facility] Hydralazine HCl (Apresoline Iv) 10 mg IV Q4H PRN Cefazolin Sodium 2 gm/ Sodium (Chloride) 110 mls @ 150 mls/hr IV Q8 [facility] Pantoprazole Sodium 40 mg/ (Sodium Chloride) 110 mls @ 330 mls/hr IV Q12H Insulin Glargine (Lantus (Bkc)) 30 units SC 0800 [facility] Insulin Human Lispro (Humalog Kwikpen (Bkc)) 0 unit SC Q6 [facility]; Protocol Lisinopril (Zestril) 5 mg PO DAILY [facility] Magnesium Hydroxide (Milk Of Magnesia) 30 ml PO DAILY PRN Metoclopramide HCl (Reglan) 5 mg IV Q6H PRN Metoprolol Tartrate (Lopressor (Beta Tin)) 12.5 mg PO BID [facility] Morphine Sulfate () 1 mg IV Q4H PRN Ondansetron HCl (Zofran) 4 mg IV Q8H PRN Oxycodone HCl (Oxyir) 5 mg PO Q6H PRN Pramipexole Dihydrochloride (Mirapex) 1.5 mg PO BID [facility] Promethazine HCl (Phenergan) 6.25 mg IV Q4H PRN Zolpidem Tartrate (Ambien (Generic)) 5 mg PO QHS PRN Home Medications: Ambulatory Orders Medication Instructions Recorded Ascorbic Acid [Vitamin C] 500 mg PO BIDCM 09/20/18 Gabapentin [Neurontin] 800 mg PO TIDCM 09/20/18 Insulin Aspart [Novolog Flexpen] 20 units SUBCUT TIDCM 09/20/18 Insulin Glargine [Lantus SoloStar 30 units SUBCUT 0800 09/20/18 Pen] Ropinirole HCl [Requip] 3 mg PO BID 09/20/18 Atorvastatin Calcium [Lipitor] 80 mg PO QHS 09/23/18 Lisinopril [Zestril] 5 mg PO DAILY 09/23/18 Metoprolol Tartrate [Lopressor 12.5 mg PO BID 09/23/18 (beta tin)] escitalopram 10 mg tablet 10 mg PO DAILY 09/28/18 promethazine 25 mg tablet 25 mg PO Q6H PRN 09/28/18 Insulin Lispro [Humalog KwikPen] See Protocol SQ ACHS insuln.pen 11/11/18 Mag Hydrox/Al Hydrox/Simeth 30 ml PO Q6H PRN PRN udc 11/11/18 [Mylanta II] Magnesium Hydroxide [Milk Of 30 ml PO DAILY PRN PRN udc 11/11/18 Magnesia] Clopidogrel Bisulfate [Plavix] 75 mg PO DAILY 12/21/18 Surgical History: - - Severel R foot toe amputations and I+Ds, BL carpal tunnel surgery 1994, right shoulder surgery in 1994, section x2, most recently LLE I+D. Psychiatric History: Anxiety, Depression [employer]IC[employer] History: No pertinent [employer] history Lives: Spouse/ Significant Other Smoking Status: Never smoker Tobacco Use: Non-smoker Alcohol: None Drugs: None - *Family History Maternal History Items: Cancer - Patient had a brother who had testicular cancer; and later cancer in his stomach., Diabetes, Hypertension, - - Her mother at the age of 67 to a blood clot to the brain. She had had multiple strokes preceding that. Patient had 3 brothers who had bypass surgery in their 50s. Paternal History Items: - - Patient states her father when she was 5 years old, denies known medical history, denies known cardiac history. Sibling History Items: - - She has one brother who is secondary to cancer and she does not know what kind of cancer he had. She also has 3 brothers with a history of cardiovascular disease, stents and coronary artery bypass grafting. Review of Systems Comment: Constitutional: Reports: Chills, Fever, Malaise, Weakness, Fatigue. Denies: Weight Change. HEENT: Denies: Head Aches, Sinus Congestion, Sinus Drainage. Cardiovascular: Denies: Chest Pain, Palpitations. Respiratory: Denies: Cough, Shortness of breath at rest, Sputum production. Gastrointestinal: Reports: Nausea. Denies: Abdominal Pain, Vomiting. Genitourinary: Denies: Dysuria. Musculoskeletal: Reports: Leg Pain. Denies: Joint Pain, Joint Tenderness. Skin: Reports: Skin Changes, Wounds. Denies: Rash. Neurological: Denies: Numbness, Tingling, Focal weakness. Psychiatric: Reports: Anxiety, Depression. Denies: Homicidal Ideations, Suicidal Ideations. Hematologic/ Lymphatic: Reports: Easy Bruising, Easy Bleeding Patient Problems: Active and Suspected Problems (Last Reviewed 12/25/18 @ 16:03 by Jamee Sawant PA-C) Hemoglobin A1c greater than 9.0% (Acute) 12.2 Diabetic ulcer of right ankle (Acute) diabetic ulcer abscess right lateral malleolus Abscess of right lower leg (Acute) diabetic ulcer abscess right lateral malleolus Intractable nausea and vomiting (Acute) Severe sepsis (Acute) Wound of foot (Acute) - Physical Exam General: awake, alert, oriented x 3. Skin: normal color, turgor, no icterus, cyanosis except notable right lateral malleolus approximate quarter sized diabetic foot ulcer with periwound erythema, streaking up the leg, edematous, tender to palpation, no market purulent drainage. HEENT: EOMI, PERRLA, dry MM. Lungs: CTA bilaterally. Heart: regular rate and rhythm. Abdomen: soft, Non distended. Extremities: no cyanosis, clubbing. Edema in right lower extremity. On the right lateral malleolus is a diabetic ulcer abscess that measures 2 x 2 cm. No exposed bone. Surrounding skin maceration. Vertical incision with sutures both superior to the ulcer and inferior to the ulcer measures 4 cm. Compromised skin posterior to ulcer. Dermis is red and swollen. Slightly indurated. Area of compromise measures 3 cm. Surrounding cellulitis. Some fluctuance. Some yellowish drainage. Neurological: cranial nerves II-XII grossly intact. Psychiatric: affect appears fatigued, ill-appearing, no acute evidence of depressive or anxiety feelings. Vital Signs Temp Pulse Resp BP Pulse Ox 98.9 F 98 16 169/95 H 95 12/25/18 14:40 12/25/18 14:50 12/25/18 14:40 12/25/18 14:50 12/25/18 14:40 Oxygen Delivery Method Room Air Weight: 186 lb 5.99 oz Body Mass Index (BMI) 30.0 Finger Stick Blood Glucose 271 Intake and Output for Last 24 Hours 12/23/18 12/24/18 12/25/18 23:59 23:59 23:59 Intake Total 3411 / 3411 3410 / 3410 3024 / 3024 Output Total 500 / 500 800 / 800 1700 / 1700 Balance 2911 / 2911 2610 / 2610 1324 / 1324 Microbiology Past 72 Hours 12/21/18 16:44 Gram Stain - Final Biopsy - Ankle Wound Culture - Final Staphylococcus aureus Anaerobic Culture - Final No anaerobic bacteria isolated. 12/21/18 02:23 Blood Culture - Preliminary Blood Culture (Wb) - Anticubital Right No growth in 48 hours. 12/21/18 02:16 Blood Culture - Preliminary Blood Culture (Wb) - Anticubital Left No growth in 48 hours. Laboratory Tests Past 24 Hrs 12/25/18 12/25/18 12/25/18 05:10 05:10 05:10 WBC 9.4 RBC 3.51 L Hgb 9.3 L Hct 30.2 L MCV 86.0 MCH 26.5 L MCHC 30.8 L RDW 14.9 H RDW Differential 45.0 H Plt Count 306 MPV 10.7 Immature Gran % (Auto) 0.400 Neut % (Auto) 79.8 H Lymph % (Auto) 11.7 L Brooks % (Auto) 6.6 Eos % (Auto) 1.3 Baso % (Auto) 0.2 Absolute Neuts (auto) 7.5 Absolute Lymphs (auto) 1.10 Total Counted Not Reportable Sodium 140 Potassium 3.3 L Chloride 111 H Carbon Dioxide 22.0 Anion Gap 7 BUN 6 L Creatinine 0.65 Estim Creat Clear Calc 93.70 Est GFR (MDRD) Af Amer 123 Est GFR (MDRD) Non-Af 102 BUN/Creatinine Ratio 9.3 L Glucose 102 Calcium 7.4 L Magnesium 1.7 POC Glucose 12/25/18 12/25/18 12/25/18 17:12 11:52 05:48 POC Glucose 122 H 129 H 122 H 12/24/18 23:52 POC Glucose 109 Diagnostic Data Foot X-Ray 12/21/18 01:36 IMPRESSION: 1. Moderately severe soft tissue swelling with evidence for ulceration of the lateral ankle. 2. Postoperative appearance of the foot with findings consistent with a neuropathic joint. Electronically Signed: Shirley Santos MD at 3:35 EDT , Service support , Lower Extremity MRI 12/21/18 07:59 IMPRESSION: Soft tissue abscess adjacent to the lateral malleolus without MRI manifestations of osteomyelitis of the lateral malleolus. 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 Atrophy of the intrinsic muscles of the foot consistent with peripheral neuropathy. Mild tibiotalar arthrosis. Electronically Signed: Saqib Roberts MD at 12:12 EDT Tel , Service support , Ankle X-Ray 12/24/18 11:51 IMPRESSION: 1. Persistent soft tissue swelling in the lateral ankle, in region of abscess evident on prior MRI of 12/21/2018. 2. No alvarado bony destruction seen on the current exam. Electronically Signed: Shan Cadet MD at 13:03 EDT , Service support , Assessment/Plan All Active Problems (Last Reviewed 12/25/18 @ 16:03 by Jamee Sawant PA-C) Hemoglobin A1c greater than 9.0% (Acute) Diabetic ulcer of right ankle (Acute) Abscess of right lower leg (Acute) Intractable nausea and vomiting (Acute) Chest pain (Resolved) Osteomyelitis (Resolved) Severe sepsis (Acute) Wound of foot (Acute) NSTEMI (non-ST elevated myocardial infarction) (Resolved) Diabetic foot ulcer associated with type 2 diabetes mellitus (Acute) 1. Nonhealing diabetic ulcer abscess right lateral malleolus. 2. Diabetes mellitus. MRI reviewed. Wound shows Staphylococcus aureus. She is currently on Ancef. There is maceration in the periwound area. The sutures superiorly and inferiorly are loose as there is surrounding edema. The sutured portion of the wound is unstable. Healing will be suboptimal. The ulcer is not ready for the VAC. At present there is a daily Silver dressing change. The VAC will be a reasonable choice for wound care after additional aggressive operative debridement. Recommend further operative intervention with incision and drainage and excisional debridement of the infection and surrounding compromised skin and soft tissue. The sutures will be removed as well. At the time of surgery, tissue will be sent to Pathology for analysis to rule out carcinoma and to Microbiology for culture. A positive culture may necessitate antibiotic modification. If the infection extends down to the bone than a partial ostectomy for osteomyelitis will be done. The additional operative intervention will make the wound bigger initially but it will make the wound care more manageable at the [facility] and make the VAC more e ffective in stabilizing the wound for an eventual skin graft. May also be a candidate for a local flap as well. At the time of the skin graft or flap which is elective, the patient's diabetes mellitus needs to be in better control with a HgbA1c less than 8. Anticipate increased metabolic demands from the wound and from the infection. Will check a Prealbumin and encourage nutritional supplementation with protein to help the healing process. Discussed with the patient the importance of better diabetes control with a drastic lowering of her HgbA1c. A persistent double digit HgbA1c increases the risk for an eventual leg amputation. Patient voices understanding. Patient was informed of the risks and complications of the procedure including alternatives to surgery. These were discussed with the patient personally. Patient voices understanding and wishes to proceed. Will schedule the surgery in the next 1-2 days. After discharge, can followup [facility]. Discussed with Dr. Allen. Code Visit Inpatient E&M: 13465 Init Hosp L2 - ICD-10 - L02.415, E11.622, R73.09
[2018-12-25] MEDS: Zolpidem Tartrate 5 MG Tablet PO (21:37)
[2018-12-25] MEDS: Atorvastatin Calcium 80 MG Tablet PO (21:39)
[2018-12-25] MEDS: Insulin Lispro 100 UNIT/ML INSULN.PEN SC (23:25)
[2018-12-25 23:31] LABS: Bedside Glucose 172 mg/dL (70-110)
[2018-12-26] VITALS (8 sets, daily range): BP systolic 147–157; BP diastolic 70–84; PULSE 85–96; RESP 16–18; TEMP 36.8–37.2; O2SAT 92–96; BMI 29.9
[2018-12-26] MEDS: 0.9% Normal Saline 1,000 ML 100 ML IV ×2 (03:22→15:08)
[2018-12-26 05:10] LABS: Absolute Neutrophil Count 5.9 X10^3/uL (2.0-7.7); Basophil# 0.04 X10^3/uL; Basophil% 0.5 % (0-1); Eosinophil# 0.22 X10^3/uL; Eosinophils% 2.8 % (0-5); Hematocrit 26.9 % (37-47); Hemoglobin 8.1 g/dl (12.0-15.0); Lymphocyte % 13.8 % (19-41); Mean Corp Hgb Conc 30.1 g/gl (32-36); Mean Corpuscular Hgb 26.1 pg (27.0-32.0); Mean Corpuscular Volume 86.8 fL (81-99); Mean Platelet Vol. 10.2 fl (6.2-12.0); Monocyte# 0.65 X10^3/uL; Monocyte% 8.1 % (0-10); Neutrophil # 5.91 X10^3/uL (2.7-7.7); POSITIVE COUNT NO; POSITIVE DIFFERENTIAL NO; POSITIVE MORPHOLOGY NO; Platelet Count 274 K/mm3 (150-450); RBC Distribution Width CV 14.9 % (11.6-14.6); RBC Distribution Width SD 45.1 fl (35.1-43.9)
[2018-12-26 05:22] LABS: Anion Gap 9 (5-15); BUN 6 mg/dL (7-18); BUN/Creat Ratio 8.8 RATIO (10-20); Calcium,Total 7.2 mg/dL (8.5-10.1); Chloride 110 mmol/L (98-107); Creatinine, Serum 0.68 mg/dL (0.55-1.02); EST Glomerular Filtration Rate 96 mL/min (>60); Est Glom Filt Rate - Afr Amer 116 mL/min (>60); Estimated Creatinine Clearance 89.57 ml/min; Glucose 165 mg/dL (74-106); Potassium 3.3 mmol/L (3.5-5.1); Sodium Level 141 mmol/L (136-145)
[2018-12-26] MEDS: Insulin Lispro 100 UNIT/ML INSULN.PEN SC ×3 (05:57→23:47)
[2018-12-26] MEDS: Cefazolin 2 GM in 0.9% Normal Saline 100 ML IV ×3 (05:58→22:44)
[2018-12-26] MEDS: Morphine 2 MG/ML Syringe 1 MG IV ×3 (05:58→22:27)
--- NOTE | 2018-12-26 08:21 | PCM.PN.SRG ---
Patient Problems: Active and Suspected Problems (Last Reviewed 12/25/18 @ 16:03 by Jamee Sawant PA-C) Intractable nausea and vomiting (Acute) Severe sepsis (Acute) Wound of foot (Acute) Subjective: Patient evaluated resting comfortably in bed. She denies nausea, vomiting overnight and with clear liquids. Patient is now noting diarrhea today. She is scheduled to undergo a procedure with Dr. Taylor today or possibly tomorrow for wound debridement and wound vac placement. She denies abdominal pain. - Physical Exam General: Alert, Oriented x3, Cooperative Abdomen: Soft, Non Tender, Hypoactive Bowel Sounds Vital Signs Temp Pulse Resp BP Pulse Ox 98.4 F 86 16 157/84 H 92 12/26/18 03:25 12/26/18 03:25 12/26/18 03:25 12/26/18 03:25 12/26/18 03:25 Oxygen Delivery Method Room Air Weight: 186 lb 5.99 oz Body Mass Index (BMI) 30.0 Finger Stick Blood Glucose 271 Intake and Output for Last 24 Hours 12/24/18 12/25/18 12/26/18 23:59 23:59 23:59 Intake Total 3410 / 3410 3024 / 3024 1200 / 1200 Output Total 800 / 800 1700 / 1700 Balance 2610 / 2610 1324 / 1324 1200 / 1200 Microbiology Past 72 Hours 12/21/18 02:16 Blood Culture - Final Blood Culture (Wb) - Anticubital Left No growth in 5 days. 12/21/18 02:23 Blood Culture - Final Blood Culture (Wb) - Anticubital Right No growth in 5 days. 12/26/18 03:09 C. difficile DNA Amplification - Final Stool 12/21/18 16:44 Gram Stain - Final Biopsy - Ankle Wound Culture - Final Staphylococcus aureus Anaerobic Culture - Final No anaerobic bacteria isolated. Laboratory Tests Past 24 Hrs 12/25/18 12/26/18 12/26/18 05:10 04:58 04:58 WBC 8.0 RBC 3.10 L Hgb 8.1 L Hct 26.9 L MCV 86.8 MCH 26.1 L MCHC 30.1 L RDW 14.9 H RDW Differential 45.1 H Plt Count 274 MPV 10.2 Immature Gran % (Auto) 0.800 Neut % (Auto) 74.0 H Lymph % (Auto) 13.8 L Howard % (Auto) 8.1 Eos % (Auto) 2.8 Baso % (Auto) 0.5 Absolute Neuts (auto) 5.9 Absolute Lymphs (auto) 1.10 Total Counted Not Reportable Sodium 141 Potassium 3.3 L Chloride 110 H Carbon Dioxide 22.0 Anion Gap 9 BUN 6 L Creatinine 0.68 Estim Creat Clear Calc 89.57 Est GFR (MDRD) Af Amer 116 Est GFR (MDRD) Non-Af 96 BUN/Creatinine Ratio 8.8 L Glucose 165 H Calcium 7.2 L Magnesium 1.7 POC Glucose 12/25/18 12/25/18 12/25/18 23:24 17:12 11:52 POC Glucose 172 H 122 H 129 H Medical Necessity - Tobacco Use Smoking Status: Never smoker Tobacco Use: Non-smoker Assessment/Plan All Active Problems (Last Reviewed 12/25/18 @ 16:03 by Jamee Sawant PA-C) Intractable nausea and vomiting (Acute) Chest pain (Resolved) Osteomyelitis (Resolved) Severe sepsis (Acute) Wound of foot (Acute) NSTEMI (non-ST elevated myocardial infarction) (Resolved) Diabetic foot ulcer associated with type 2 diabetes mellitus (Acute) I have been consulted in conjunction with Dr. Aden Impression: Intractable nausea, vomiting Discussed patient with Dr. Aden Will proceed with upper GI and gastric emptying study If these are normal, will consider EGD We will proceed with the images as time permits. We will continue to monitor this patient Code Visit Inpatient E&M: [id number] [facility] Hosp L1
[2018-12-26] MEDS: Ondansetron 4 MG/2 ML Vial IV (09:15)
--- NOTE | 2018-12-26 09:18 | NURSING ---
wound photo: right lateral ankle
[2018-12-26] MEDS: Metoprolol Tartrate 25 MG Tablet 12.5 MG PO ×2 (09:30→22:42)
[2018-12-26] MEDS: Lisinopril 5 MG Tablet PO (09:33)
--- NOTE | 2018-12-26 10:16 | PCM.PN.ID ---
Patient Problems: Active and Suspected Problems (Last Reviewed 12/25/18 @ 16:03 by Jamee Sawant PA-C) Intractable nausea and vomiting (Acute) Severe sepsis (Acute) Wound of foot (Acute) Subjective: OR for debridement today, no fever, feeling about the same, still pain in R ankle. - Physical Exam General: Alert, Cooperative, No apparent distress Lungs: Clear to auscultation, Normal air movement Cardiovascular: Regular rate, Regular Rhythm Abdomen: Soft, Non Tender, Non-Distended Skin: No rashes Vital Signs Temp Pulse Resp BP Pulse Ox 98.2 F 86 18 153/77 H 95 12/26/18 09:10 12/26/18 09:30 12/26/18 09:10 12/26/18 09:10 12/26/18 09:10 Oxygen Delivery Method Room Air Weight: 84.538 kg Body Mass Index (BMI) 30.0 Finger Stick Blood Glucose 271 Intake and Output for Last 24 Hours 12/24/18 12/25/18 12/26/18 23:59 23:59 23:59 Intake Total 3410 / 3410 3024 / 3024 1200 / 1200 Output Total 800 / 800 1700 / 1700 Balance 2610 / 2610 1324 / 1324 1200 / 1200 Microbiology Past 72 Hours 12/21/18 02:16 Blood Culture - Final Blood Culture (Wb) - Anticubital Left No growth in 5 days. 12/21/18 02:23 Blood Culture - Final Blood Culture (Wb) - Anticubital Right No growth in 5 days. 12/26/18 03:09 C. difficile DNA Amplification - Final Stool 12/21/18 16:44 Gram Stain - Final Biopsy - Ankle Wound Culture - Final Staphylococcus aureus Anaerobic Culture - Final No anaerobic bacteria isolated. Laboratory Tests Past 24 Hrs 12/25/18 12/26/18 12/26/18 05:10 04:58 04:58 WBC 8.0 RBC 3.10 L Hgb 8.1 L Hct 26.9 L MCV 86.8 MCH 26.1 L MCHC 30.1 L RDW 14.9 H RDW Differential 45.1 H Plt Count 274 MPV 10.2 Immature Gran % (Auto) 0.800 Neut % (Auto) 74.0 H Lymph % (Auto) 13.8 L [place] % (Auto) 8.1 Eos % (Auto) 2.8 Baso % (Auto) 0.5 Absolute Neuts (auto) 5.9 Absolute Lymphs (auto) 1.10 Total Counted Not Reportable Sodium 141 Potassium 3.3 L Chloride 110 H Carbon Dioxide 22.0 Anion Gap 9 BUN 6 L Creatinine 0.68 Estim Creat Clear Calc 89.57 Est GFR (MDRD) Af Amer 116 Est GFR (MDRD) Non-Af 96 BUN/Creatinine Ratio 8.8 L Glucose 165 H Calcium 7.2 L Magnesium 1.7 POC Glucose 12/25/18 12/25/18 12/25/18 23:24 17:12 11:52 POC Glucose 172 H 122 H 129 H Medical Necessity - Tobacco Use Smoking Status: Never smoker Tobacco Use: Non-smoker Route of nutrition/ use of supplements: [] Nutritional Intake: [] IV Site: [] Tirado Catheter: [] - Assessment/Plan Antibiotics: [] Assessment/Plan: [] Active and Suspected Problems (Last Reviewed 09/28/18 @ 15:32 by Saravanan Jean Baptiste MD) Severe sepsis (Acute) Wound of foot (Acute) R ankle MSSA abscess causing severe sepsis- MRI does not show osteo. Taken to OR 12/[address] Allen for I&D. Cx now with MSSA. Narrowed abx to cefazolin. Plan on 2 week total course from day of surgery. Wound still macerated. Plastic surgery take to OR today Will follow
--- NOTE | 2018-12-26 10:40 | PCM.PN.HOSP ---
Patient Problems: Active and Suspected Problems (Last Reviewed 12/25/18 @ 16:03 by Jamee Sawant PA-C) Intractable nausea and vomiting (Acute) Severe sepsis (Acute) Wound of foot (Acute) Subjective: Patient was seen and examined. Tolerating a clear liquid diet. Surgery planned by plastic surgery has been postponed till tomorrow. Still has nausea but beginning to feel hungry. Objective: Physical exam: General: Alert, Oriented x3, Cooperative, No apparent distress, not on oxygen HEENT: Atraumatic, PERRLA, EOMI, Normocephalic Oral: Moist Mucosa Neck: Supple Lungs: Clear to auscultation, Normal air movement Cardiovascular: Regular rate, Regular Rhythm, Normal S1, Normal S2, No murmurs Abdomen: Bowel Sounds Present, Soft, Non Tender, Non-Distended, No Hepato-splenomegaly Extremities: - - Bilateral lower extremity is wrapped in MYLA-wraps Skin: No rashes Musculoskeletal: No Tenderness to Palpation of Joints or Extremities Lymphatic: No Cervical, Supraclavicular, or Inguinal Adenopathy Neurological: Cranial nerves II-XII grossly intact, Neuro grossly intact Psych/Mental Status: Normal Affect, Appropriate Vitals/I&O's: Vital Signs Temp Pulse Resp BP Pulse Ox 98.2 F 86 18 153/77 H 95 12/26/18 09:10 12/26/18 09:30 12/26/18 09:10 12/26/18 09:10 12/26/18 09:10 Oxygen Delivery Method Room Air Weight: 84.538 kg Body Mass Index (BMI) 30.0 Finger Stick Blood Glucose 271 Intake and Output for Last 24 Hours 12/24/18 12/25/18 12/26/18 23:59 23:59 23:59 Intake Total 3410 / 3410 3024 / 3024 1200 / 1200 Output Total 800 / 800 1700 / 1700 Balance 2610 / 2610 1324 / 1324 1200 / 1200 Microbiology Past 72 Hours 12/21/18 02:16 Blood Culture (Wb) - Anticubital Left Blood Culture - Final No growth in 5 days. 12/21/18 02:23 Blood Culture (Wb) - Anticubital Right Blood Culture - Final No growth in 5 days. 12/26/18 03:09 Stool C. difficile DNA Amplification - Final 12/21/18 16:44 Biopsy - Ankle Gram Stain - Final 12/21/18 16:44 Biopsy - Ankle Wound Culture - Final Staphylococcus aureus 12/21/18 16:44 Biopsy - Ankle Anaerobic Culture - Final No anaerobic bacteria isolated. Laboratory Results 12/25/18 05:10: Magnesium 1.7 12/25/18 11:52: POC Glucose 129 H 12/25/18 17:12: POC Glucose 122 H 12/25/18 23:24: POC Glucose 172 H 12/26/18 04:58: WBC 8.0, RBC 3.10 L, Hgb 8.1 L, Hct 26.9 L, MCV 86.8, MCH 26.1 L, MCHC 30.1 L, RDW 14.9 H, RDW Differential 45.1 H, Plt Count 274, MPV 10.2, Immature Gran % (Auto) 0.800, Neut % (Auto) 74.0 H, Lymph % (Auto) 13.8 L, [place] % (Auto) 8.1, Eos % (Auto) 2.8, Baso % (Auto) 0.5, Absolute Neuts (auto) 5.9, Absolute Lymphs (auto) 1.10, Total Counted Not Reportable 12/26/18 04:58: Sodium 141, Potassium 3.3 L, Chloride 110 H, Carbon Dioxide 22.0, Anion Gap 9, BUN 6 L, Creatinine 0.68, Estim Creat Clear Calc 89.57, Est GFR (MDRD) Af Amer 116, Est GFR (MDRD) Non-Af 96, BUN/Creatinine Ratio 8.8 L, Glucose 165 H, Calcium 7.2 L Current Medications Acetaminophen (Tylenol) 650 mg PO Q6H PRN PRN PRN Reason: Non-cardiac pain (mod-severe) Last Admin: 12/22/18 02:31 Dose: 650 mg Al Hydroxide/Mg Hydroxide (Mylanta Ii) 30 ml PO Q6H PRN PRN PRN Reason: Gastric burning [facility] Last Admin: 12/26/18 07:35 Dose: Not Given Atorvastatin Calcium (Lipitor) 80 mg PO QHS [facility] Last Admin: 12/25/18 21:39 Dose: 80 mg Clopidogrel Bisulfate (Plavix) 75 mg PO DAILY [facility] Last Admin: 12/26/18 09:07 Dose: Not Given Enoxaparin Sodium (Lovenox) 40 mg SC DAILY@1000 [facility] Last Admin: 12/26/18 09:08 Dose: Not Given Gabapentin (Neurontin) 800 mg PO 0800,1700,2200 [facility] Last Admin: 12/26/18 07:35 Dose: Not Given Hydralazine HCl (Apresoline Iv) 10 mg IV Q4H PRN PRN PRN Reason: SBP > 160 Last Admin: 12/25/18 04:41 Dose: 10 mg Sodium Chloride () 1,000 mls @ 100 mls/hr IV .Q10H [facility] Last Admin: 12/26/18 03:22 Dose: 100 mls/hr Cefazolin Sodium 2 gm/ Sodium (Chloride) 110 mls @ 150 mls/hr IV Q8 [facility] Last Admin: 12/26/18 05:58 Dose: 150 mls/hr Pantoprazole Sodium 40 mg/ (Sodium Chloride) 110 mls @ 330 mls/hr IV Q12 [facility] Last Admin: 12/26/18 09:15 Dose: 330 mls/hr Insulin Glargine (Lantus (Bkc)) 30 units SC 0800 [facility] Last Admin: 12/24/18 08:40 Dose: 30 u Insulin Human Lispro (Humalog Kwikpen (Bkc)) 0 unit SC Q6 [facility]; Protocol Last Admin: 12/26/18 05:57 Dose: 2 u Lisinopril (Zestril) 5 mg PO DAILY [facility] Last Admin: 12/26/18 09:33 Dose: 5 mg Magnesium Hydroxide (Milk Of Magnesia) 30 ml PO DAILY PRN PRN PRN Reason: Constipation Last Admin: 12/24/18 08:44 Dose: 30 ml Magnesium Hydroxide (Milk Of Magnesia) 30 ml PO DAILY PRN PRN PRN Reason: Constipation Metoclopramide HCl (Reglan) 5 mg IV Q6H PRN PRN PRN Reason: NAUSEA Last Admin: 12/25/18 14:38 Dose: 5 mg Metoprolol Tartrate (Lopressor (Beta Tin)) 12.5 mg PO BID [facility] Last Admin: 12/26/18 09:30 Dose: 12.5 mg Morphine Sulfate () 1 mg IV Q4H PRN PRN PRN Reason: PAIN Last Admin: 12/26/18 05:58 Dose: 1 mg Ondansetron HCl (Zofran) 4 mg IV Q8H PRN PRN PRN Reason: NAUSEA/VOMITING Last Admin: 12/26/18 09:15 Dose: 4 mg Oxycodone HCl (Oxyir) 5 mg PO Q6H PRN PRN PRN Reason: SEVERE PAIN (6-10/10) Last Admin: 12/25/18 23:21 Dose: 5 mg Pramipexole Dihydrochloride (Mirapex) 1.5 mg PO BID TAB Last Admin: 12/26/18 09:07 Dose: Not Given Promethazine HCl (Phenergan) 6.25 mg IV Q4H PRN PRN PRN Reason: NAUSEA/VOMITING Last Admin: 12/25/18 09:25 Dose: 6.25 mg Sodium Chloride () 5 - 15 ml IV UD PRN PRN Reason: SALINE FLUSH Last Admin: 12/25/18 09:26 Dose: 5 ml Zolpidem Tartrate (Ambien (Generic)) 5 mg PO QHS PRN PRN PRN Reason: INSOMNIA Last Admin: 12/25/18 21:37 Dose: 5 mg Medical Necessity - Tobacco Use Smoking Status: Never smoker Tobacco Use: Non-smoker Assessment/Plan All Active Problems (Last Reviewed 12/25/18 @ 16:03 by Jamee Sawant PA-C) Intractable nausea and vomiting (Acute) Chest pain (Resolved) Osteomyelitis (Resolved) Severe sepsis (Acute) Wound of foot (Acute) NSTEMI (non-ST elevated myocardial infarction) (Resolved) Diabetic foot ulcer associated with type 2 diabetes mellitus (Acute) 53-year-old female with past medical history of type 2 diabetes, hypertension, hyperlipidemia, CKD stage III, who comes in with right foot wound infection and found to be in severe sepsis. 1. Nausea and vomiting, unclear etiology, improving, on reglan as well as phenergan prn Gastric emptying study planned, will continue to monitor. 2. Severe sepsis secondary to MSSA right ankle abscess, improving Stable vitals, no leukocytosis, on vancomycin and ceftriaxone Wound cultures growing staph aureus, negative blood cultures 3. MSSA right ankle abscess status post I & D on 12/21/18, local wound exam notes by podiatry was noted. Wound appears macerated, Plastic surgery consulted, will await definitive recommendations. 4. Type 2 DM, complicated by neuropathy, history of noncompliance, sugars are better controlled Continue on 30 units of Lantus, 20 units pre-meal lispro as well as insulin sliding scale, Continue to monitor blood sugars with Accu-Cheks and insulin sliding scale 5. CAD, no acute symptomatic, on plavix, statin 6. Hypertension, controlled, on Lisinopril, metoprolol\ Will continue to monitor 7. Hyperlipidemia, on statin 8. CKD stage 3 secondary diabetic nephropathy, stable, Cr at 1.03, labs in am 9. Anxiety disorder, on Lexapro 10. DVT PPx- Lovenox SC Code Visit Inpatient E&M: 63203 Subs Hosp L2
[2018-12-26 12:16] LABS: Bedside Glucose 169 mg/dL (70-110)
[2018-12-26 12:16] LABS: Bedside Glucose 165 mg/dL (70-110)
--- NOTE | 2018-12-26 13:22 | CASEMGMT ---
Social Work Note SW faxed updated clinicals to [facility] and updated them that pt is not ready for discharge. Plan: [facility] once medically cleared Erika Tobar SCREEN ST[employer]CHER, [employer]PER[employer]
--- NOTE | 2018-12-26 15:16 | PCM.PN.SRG ---
Patient Problems: Active and Suspected Problems (Last Reviewed 12/25/18 @ 16:03 by Jamee Sawant PA-C) Intractable nausea and vomiting (Acute) Severe sepsis (Acute) Wound of foot (Acute) Subjective: patient seen at bedside this afternoon. patient has no new complaints. Patient possibly going to surgery this afternoon by plastic surgery. Objective: Patient alert and orientated x 3. patient does not appear in any distress left foot has stable ulceration with granular base. there is no exposed tendon capsule or bone. there is no signs of infection. right lower extremity has dressing applied and recently changed by nursing staff. - Physical Exam Vital Signs Temp Pulse Resp BP Pulse Ox 98.6 F 85 18 147/70 H 95 12/26/18 13:50 12/26/18 13:50 12/26/18 13:50 12/26/18 13:50 12/26/18 13:50 Oxygen Delivery Method Room Air Weight: 84.5 kg Body Mass Index (BMI) 29.9 Finger Stick Blood Glucose 271 Intake and Output for Last 24 Hours 12/24/18 12/25/18 12/26/18 23:59 23:59 23:59 Intake Total 3410 / 3410 3024 / 3024 2068 / 2068 Output Total 800 / 800 1700 / 1700 1050 / 1050 Balance 2610 / 2610 1324 / 1324 1018 / 1018 Microbiology Past 72 Hours 12/21/18 02:16 Blood Culture - Final Blood Culture (Wb) - Anticubital Left No growth in 5 days. 12/21/18 02:23 Blood Culture - Final Blood Culture (Wb) - Anticubital Right No growth in 5 days. 12/26/18 03:09 C. difficile DNA Amplification - Final Stool 12/21/18 16:44 Gram Stain - Final Biopsy - Ankle Wound Culture - Final Staphylococcus aureus Anaerobic Culture - Final No anaerobic bacteria isolated. Laboratory Tests Past 24 Hrs 12/26/18 12/26/18 04:58 04:58 WBC 8.0 RBC 3.10 L Hgb 8.1 L Hct 26.9 L MCV 86.8 MCH 26.1 L MCHC 30.1 L RDW 14.9 H RDW Differential 45.1 H Plt Count 274 MPV 10.2 Immature Gran % (Auto) 0.800 Neut % (Auto) 74.0 H Lymph % (Auto) 13.8 L [place] % (Auto) 8.1 Eos % (Auto) 2.8 Baso % (Auto) 0.5 Absolute Neuts (auto) 5.9 Absolute Lymphs (auto) 1.10 Total Counted Not Reportable Sodium 141 Potassium 3.3 L Chloride 110 H Carbon Dioxide 22.0 Anion Gap 9 BUN 6 L Creatinine 0.68 Estim Creat Clear Calc 89.57 Est GFR (MDRD) Af Amer 116 Est GFR (MDRD) Non-Af 96 BUN/Creatinine Ratio 8.8 L Glucose 165 H Calcium 7.2 L POC Glucose 12/26/18 12/26/18 12/25/18 12:11 05:56 23:24 POC Glucose 165 H 169 H 172 H 12/25/18 17:12 POC Glucose 122 H Medical Necessity - Tobacco Use Smoking Status: Never smoker Tobacco Use: Non-smoker Assessment/Plan All Active Problems (Last Reviewed 12/25/18 @ 16:03 by Jamee Sawant PA-C) Intractable nausea and vomiting (Acute) Chest pain (Resolved) Osteomyelitis (Resolved) Severe sepsis (Acute) Wound of foot (Acute) NSTEMI (non-ST elevated myocardial infarction) (Resolved) Diabetic foot ulcer associated with type 2 diabetes mellitus (Acute) patient was examined and informed of current findings discussed left foot ulceration. ulceration does appear to be healing. continue with srinivas and nwb. I will continue to follow-up this ulceration weekly in my clinic. her right leg ulceration was debrided last week. the integrity of the periwound tissue has kept me from applying wound vac. I have consulted plastic surgery who has plans of taking patient to the operating room for further debridement with possible wound vac application. she may be candidate for skin graft or rotational flap per plastic surgery once her sugars are better controlled. I will defer the right ankle to Dr. Taylor who plans on taking patient to operating room. patient is free to discharge from a podiatric stand point on left foot.
--- NOTE | 2018-12-26 15:30 | NURSING ---
Pt informed her diet has changed to full liquids, instructed to go easy and to call nurse so she can check her blood glucose prior to eating.
[2018-12-26] MEDS: Ascorbic Acid 500 MG Tablet PO (16:17)
[2018-12-26] MEDS: Gabapentin 800 MG Tablet PO ×2 (16:18→22:40)
[2018-12-26 16:30] LABS: Bedside Glucose 166 mg/dL (70-110)
[2018-12-26] MEDS: Loperamide 2 MG Capsule PO (18:46)
[2018-12-26] MEDS: 0.9% NaCl Peripheral Flush Adult/Peds IV (22:26)
[2018-12-26] MEDS: Atorvastatin Calcium 80 MG Tablet PO (22:40)
[2018-12-26] MEDS: Pramipexole Di-HCl 1 MG Tablet 1.5 MG PO (22:43)
[2018-12-26 23:01] LABS: Bedside Glucose 294 mg/dL (70-110)
[2018-12-26] MEDS: oxyCODONE 5 MG Tablet PO (23:51)
[2018-12-26] MEDS: Zolpidem Tartrate 5 MG Tablet PO (23:51)
[2018-12-27] VITALS (14 sets, daily range): BP systolic 89–165; BP diastolic 44–85; PULSE 74–93; RESP 15–20; TEMP 36.5–37.1; O2SAT 92–100; BMI 29.9
[2018-12-27] MEDS: 0.9% Normal Saline 1,000 ML 100 ML IV (01:40)
[2018-12-27] MEDS: Cefazolin 2 GM in 0.9% Normal Saline 100 ML IV ×3 (06:16→23:25)
[2018-12-27] MEDS: Insulin Lispro 100 UNIT/ML INSULN.PEN SC ×4 (06:24→22:38)
[2018-12-27 06:26] LABS: Hematocrit 27.2 % (37-47); Hemoglobin 8.2 g/dl (12.0-15.0); Mean Corp Hgb Conc 30.1 g/gl (32-36); Mean Corpuscular Hgb 26.1 pg (27.0-32.0); Mean Corpuscular Volume 86.6 fL (81-99); Mean Platelet Vol. 10.1 fl (6.2-12.0); Platelet Count 322 K/mm3 (150-450); RBC Distribution Width CV 14.9 % (11.6-14.6); RBC Distribution Width SD 45.2 fl (35.1-43.9); Red Blood Count 3.14 M/mm3 (4.2-5.4); White Blood Count 7.9 K/mm3 (4.4-11.0)
[2018-12-27 06:28] LABS: Scan Indicated on CBC? Y/N NO
[2018-12-27 06:36] LABS: Bedside Glucose 249 mg/dL (70-110)
[2018-12-27 06:40] LABS: Anion Gap 7 (5-15); BUN 5 mg/dL (7-18); BUN/Creat Ratio 6.5 RATIO (10-20); Calcium,Total 7.9 mg/dL (8.5-10.1); Chloride 109 mmol/L (98-107); Creatinine, Serum 0.77 mg/dL (0.55-1.02); EST Glomerular Filtration Rate 83 mL/min (>60); Est Glom Filt Rate - Afr Amer 100 mL/min (>60); Glucose 258 mg/dL (74-106); Potassium 3.2 mmol/L (3.5-5.1); Sodium Level 142 mmol/L (136-145)
--- NOTE | 2018-12-27 08:01 | PCM.PN.HOSP ---
Patient Problems: Active and Suspected Problems (Last Reviewed 12/25/18 @ 16:03 by Jamee Sawant PA-C) Intractable nausea and vomiting (Acute) Severe sepsis (Acute) Wound of foot (Acute) Subjective: Patient was seen and examined. Denied any fever or chills. Nausea is much improved. Feels hungry. Complains of intermittent blurred vision. Objective: Physical exam: General: Alert, Oriented x3, Cooperative, No apparent distress, not on oxygen HEENT: Atraumatic, PERRLA, EOMI, Normocephalic Oral: Moist Mucosa Neck: Supple Lungs: Clear to auscultation, Normal air movement Cardiovascular: Regular rate, Regular Rhythm, Normal S1, Normal S2, No murmurs Abdomen: Bowel Sounds Present, Soft, Non Tender, Non-Distended, No Hepato-splenomegaly Extremities: - - Bilateral lower extremity is wrapped in MYLA-wraps Skin: No rashes Musculoskeletal: No Tenderness to Palpation of Joints or Extremities Lymphatic: No Cervical, Supraclavicular, or Inguinal Adenopathy Neurological: Cranial nerves II-XII grossly intact, Neuro grossly intact Psych/Mental Status: Normal Affect, Appropriate Vitals/I&O's: Vital Signs Temp Pulse Resp BP Pulse Ox 98.8 F 82 20 H 129/64 H 93 12/27/18 03:40 12/27/18 03:40 12/27/18 03:40 12/27/18 03:40 12/27/18 03:40 Oxygen Delivery Method Room Air Weight: 84.5 kg Body Mass Index (BMI) 29.9 Finger Stick Blood Glucose 271 Intake and Output for Last 24 Hours 12/25/18 12/26/18 12/27/18 23:59 23:59 23:59 Intake Total 3024 / 3024 2876 / 2876 1310 / 1310 Output Total 1700 / 1700 1400 / 1400 1500 / 1500 Balance 1324 / 1324 1476 / 1476 -190 / -190 Microbiology Past 72 Hours 12/21/18 02:16 Blood Culture (Wb) - Anticubital Left Blood Culture - Final No growth in 5 days. 12/21/18 02:23 Blood Culture (Wb) - Anticubital Right Blood Culture - Final No growth in 5 days. 12/26/18 03:09 Stool C. difficile DNA Amplification - Final 12/21/18 16:44 Biopsy - Ankle Gram Stain - Final 12/21/18 16:44 Biopsy - Ankle Wound Culture - Final Staphylococcus aureus 12/21/18 16:44 Biopsy - Ankle Anaerobic Culture - Final No anaerobic bacteria isolated. Laboratory Results 12/26/18 05:56: POC Glucose 169 H 12/26/18 12:11: POC Glucose 165 H 12/26/18 16:15: POC Glucose 166 H 12/26/18 22:57: POC Glucose 294 H 12/27/18 05:50: WBC 7.9, RBC 3.14 L, Hgb 8.2 L, Hct 27.2 L, MCV 86.6, MCH 26.1 L, MCHC 30.1 L, RDW 14.9 H, RDW Differential 45.2 H, Plt Count 322, MPV 10.1 12/27/18 05:50: Sodium 142, Potassium 3.2 L, Chloride 109 H, Carbon Dioxide 26.0, Anion Gap 7, BUN 5 L, Creatinine 0.77, Estim Creat Clear Calc 79.10, Est GFR (MDRD) Af Amer 100, Est GFR (MDRD) Non-Af 83, BUN/Creatinine Ratio 6.5 L, Glucose 258 H, Calcium 7.9 L 12/27/18 06:22: POC Glucose 249 H Current Medications Acetaminophen (Tylenol) 650 mg PO Q6H PRN PRN PRN Reason: Non-cardiac pain (mod-severe) Last Admin: 12/22/18 02:31 Dose: 650 mg Al Hydroxide/Mg Hydroxide (Mylanta Ii) 30 ml PO Q6H PRN PRN PRN Reason: Gastric burning Ascorbic [facility] (Vitamin C) [facility] Last Admin: 12/26/18 16:17 Dose: 500 mg Atorvastatin Calcium (Lipitor) 80 mg PO QHS [facility] Last Admin: 12/26/18 22:40 Dose: 80 mg Clopidogrel Bisulfate (Plavix) 75 mg PO DAILY [facility] Last Admin: 12/27/18 07:54 Dose: Not Given Enoxaparin Sodium (Lovenox) 40 mg SC DAILY@1000 [facility] Last Admin: 12/27/18 07:54 Dose: Not Given Gabapentin (Neurontin) 800 mg PO 0800,1700,2200 [facility] Last Admin: 12/26/18 22:40 Dose: 800 mg Hydralazine HCl (Apresoline Iv) 10 mg IV Q4H PRN PRN PRN Reason: SBP > 160 Last Admin: 12/25/18 04:41 Dose: 10 mg Sodium Chloride () 1,000 mls @ 100 mls/hr IV .Q10H [facility] Last Admin: 12/27/18 01:40 Dose: 100 mls/hr Cefazolin Sodium 2 gm/ Sodium (Chloride) 110 mls @ 150 mls/hr IV Q8 [facility] Last Admin: 12/27/18 06:16 Dose: 150 mls/hr Pantoprazole Sodium 40 mg/ (Sodium Chloride) 110 mls @ 330 mls/hr IV Q12 [facility] Last Admin: 12/26/18 22:41 Dose: 330 mls/hr Potassium Chloride () 10 meq in 100 mls @ 100 mls/hr IV BOLUS Q1H [facility] Stop: 12/27/18 11:59 Insulin Glargine (Lantus (Bkc)) 30 units SC 0800 [facility] Last Admin: 12/24/18 08:40 Dose: 30 u Insulin Human Lispro (Humalog Kwikpen (Bkc)) 0 unit SC Q6 [facility]; Protocol Last Admin: 12/27/18 06:24 Dose: 4 u Lisinopril (Zestril) 5 mg PO DAILY [facility] Last Admin: 12/26/18 09:33 Dose: 5 mg Loperamide HCl (Imodium) 2 mg PO Q2H PRN PRN PRN Reason: Diarrhea Last Admin: 12/26/18 18:46 Dose: 2 mg Magnesium Hydroxide (Milk Of Magnesia) 30 ml PO DAILY PRN PRN PRN Reason: Constipation Last Admin: 12/24/18 08:44 Dose: 30 ml Magnesium Hydroxide (Milk Of Magnesia) 30 ml PO DAILY PRN PRN PRN Reason: Constipation Metoclopramide HCl (Reglan) 5 mg IV Q6H PRN PRN PRN Reason: NAUSEA Last Admin: 12/25/18 14:38 Dose: 5 mg Metoprolol Tartrate (Lopressor (Beta Tin)) 12.5 mg PO BID [facility] Last Admin: 12/26/18 22:42 Dose: 12.5 mg Morphine Sulfate () 1 mg IV Q4H PRN PRN PRN Reason: PAIN Last Admin: 12/26/18 22:27 Dose: 1 mg Ondansetron HCl (Zofran) 4 mg IV Q8H PRN PRN PRN Reason: NAUSEA/VOMITING Last Admin: 12/26/18 09:15 Dose: 4 mg Oxycodone HCl (Oxyir) 5 mg PO Q6H PRN PRN PRN Reason: SEVERE PAIN (6-10/10) Last Admin: 12/26/18 23:51 Dose: 5 mg Pramipexole Dihydrochloride (Mirapex) 1.5 mg PO BID TAB Last Admin: 12/26/18 22:43 Dose: 1.5 mg Promethazine HCl (Phenergan) 6.25 mg IV Q4H PRN PRN PRN Reason: NAUSEA/VOMITING Last Admin: 12/25/18 09:25 Dose: 6.25 mg Sodium Chloride () 5 - 15 ml IV UD PRN PRN Reason: SALINE FLUSH Last Admin: 12/26/18 22:26 Dose: 10 ml Throat Lozenges (Cepacol Sore Throat Lozenge) 2 lozenge MUCOUS MEM Q2H PRN PRN PRN Reason: SORE THROAT Zolpidem Tartrate (Ambien (Generic)) 5 mg PO QHS PRN PRN PRN Reason: INSOMNIA Last Admin: 12/26/18 23:51 Dose: 5 mg Medical Necessity - Tobacco Use Smoking Status: Never smoker Tobacco Use: Non-smoker Assessment/Plan All Active Problems (Last Reviewed 12/25/18 @ 16:03 by Jamee Sawant PA-C) Intractable nausea and vomiting (Acute) Chest pain (Resolved) Osteomyelitis (Resolved) Severe sepsis (Acute) Wound of foot (Acute) NSTEMI (non-ST elevated myocardial infarction) (Resolved) Diabetic foot ulcer associated with type 2 diabetes mellitus (Acute) 53-year-old female with past medical history of type 2 diabetes, hypertension, hyperlipidemia, CKD stage III, who comes in with right foot wound infection and found to be in severe sepsis. 1. MSSA right ankle abscess status post I & D on 12/21/18, status post wound debridement today plastic surgery Further wound recommendations per plastic surgery 2. Nausea and vomiting, improved, on Reglan IV, gastric emptying studies planned 3. Severe sepsis secondary to MSSA right ankle abscess, improving Stable vitals, no leukocytosis, on vancomycin and ceftriaxone Wound cultures growing staph aureus, negative blood cultures 4. Type 2 DM, complicated by neuropathy, history of noncompliance, sugars are better controlled Continue on 30 units of Lantus, 20 units pre-meal lispro as well as insulin sliding scale, Continue to monitor blood sugars with Accu-Cheks and insulin sliding scale 5. CAD, no acute symptomatic, on plavix, statin 6. Hypertension, controlled, on Lisinopril, metoprolol Will continue to monitor 7. Hyperlipidemia, on statin 8. CKD stage 3 secondary diabetic nephropathy, stable 9. Anxiety disorder, on Lexapro 10. DVT PPx- Lovenox SC Code Visit Inpatient E&M: 92324 Subs Hosp L2
--- NOTE | 2018-12-27 08:47 | NURSING ---
right lateral ankle dressing left in place since patient is having surgery later today. dressing to the left plantar foot changed as ordered. see intervention.
--- NOTE | 2018-12-27 08:58 | PCM.PN.SRG ---
Patient Problems: Active and Suspected Problems (Last Reviewed 12/25/18 @ 16:03 by Jamee Sawant PA-C) Intractable nausea and vomiting (Acute) Severe sepsis (Acute) Wound of foot (Acute) - Physical Exam General: Alert, Oriented x3, Cooperative Abdomen: Soft, Non Tender, Hypoactive Bowel Sounds, Distended - slightly Vital Signs Temp Pulse Resp BP Pulse Ox 98.6 F 81 16 150/73 H 96 12/27/18 08:14 12/27/18 08:14 12/27/18 08:14 12/27/18 08:14 12/27/18 08:14 Oxygen Delivery Method Room Air Weight: 186 lb 4.65 oz Body Mass Index (BMI) 29.9 Finger Stick Blood Glucose 271 Intake and Output for Last 24 Hours 12/25/18 12/26/18 12/27/18 23:59 23:59 23:59 Intake Total 3024 / 3024 2876 / 2876 1310 / 1310 Output Total 1700 / 1700 1400 / 1400 1500 / 1500 Balance 1324 / 1324 1476 / 1476 -190 / -190 Microbiology Past 72 Hours 12/21/18 02:16 Blood Culture - Final Blood Culture (Wb) - Anticubital Left No growth in 5 days. 12/21/18 02:23 Blood Culture - Final Blood Culture (Wb) - Anticubital Right No growth in 5 days. 12/26/18 03:09 C. difficile DNA Amplification - Final Stool 12/21/18 16:44 Gram Stain - Final Biopsy - Ankle Wound Culture - Final Staphylococcus aureus Anaerobic Culture - Final No anaerobic bacteria isolated. Laboratory Tests Past 24 Hrs 12/27/18 12/27/18 05:50 05:50 WBC 7.9 RBC 3.14 L Hgb 8.2 L Hct 27.2 L MCV 86.6 MCH 26.1 L MCHC 30.1 L RDW 14.9 H RDW Differential 45.2 H Plt Count 322 MPV 10.1 Sodium 142 Potassium 3.2 L Chloride 109 H Carbon Dioxide 26.0 Anion Gap 7 BUN 5 L Creatinine 0.77 Estim Creat Clear Calc 79.10 Est GFR (MDRD) Af Amer 100 Est GFR (MDRD) Non-Af 83 BUN/Creatinine Ratio 6.5 L Glucose 258 H Calcium 7.9 L POC Glucose 12/27/18 12/26/18 12/26/18 06:22 22:57 16:15 POC Glucose 249 H 294 H 166 H 12/26/18 12/26/18 12:11 05:56 POC Glucose 165 H 169 H Medical Necessity - Tobacco Use Smoking Status: Never smoker Tobacco Use: Non-smoker Assessment/Plan All Active Problems (Last Reviewed 12/25/18 @ 16:03 by Jamee Sawant PA-C) Intractable nausea and vomiting (Acute) Chest pain (Resolved) Osteomyelitis (Resolved) Severe sepsis (Acute) Wound of foot (Acute) NSTEMI (non-ST elevated myocardial infarction) (Resolved) Diabetic foot ulcer associated with type 2 diabetes mellitus (Acute) I have been consulted in conjunction with Dr. Aden Impression: Intractable nausea, vomiting Will proceed with upper GI and gastric emptying study We will proceed with the images as time permits. Patient is scheduled for surgery today No new concerns form the nursing staff overnight We will continue to monitor this patient Code Visit Inpatient E&M: 21583 [facility] Hosp L1
[2018-12-27] MEDS: Potassium Chloride 10mEq/100mL 10 MEQ/100 ML IV.SOLN. 100 MEQ IV BOLUS ×4 (09:38→14:58)
[2018-12-27] MEDS: Metoprolol Tartrate 25 MG Tablet 12.5 MG PO ×2 (10:12→20:35)
--- NOTE | 2018-12-27 12:23 | NURSING ---
Addendum entered by Selma Mcgraw 12/27/18 12:23: pt transported off unit at this time for surgery by VIJAY Hunter Original Note: report called to Vanessa in [facility]
[2018-12-27 12:25] LABS: Bedside Glucose 216 mg/dL (70-110)
--- NOTE | 2018-12-27 13:10 | PCA ---
pt off floor
--- NOTE | 2018-12-27 13:59 | OP.PCM_ITS ---
Report of Operation Date of Procedure: 12/27/18 Pre-Operative Diagnosis: 1. Nonhealing diabetic ulcer abscess right lateral malleolus. 2. Diabetes mellitus. Post-Operative Diagnosis: 1. Nonhealing necrotizing diabetic ulcer abscess right lateral malleolus. 2. Diabetes mellitus. Surgery/Procedure Performed:: Surgical preparation right lateral malleolus with incision and drainage and excisional debridement necrotizing diabetic ulcer abscess (40 cm2). Description of Surgical Findings:: The patient is a 53 year old F was recently admitted to the hospital on 12/21/18 with a right foot infection. Her WBC was 19.4 and has improved to 9.4 after surgery on 12/22/[address] Allen where he performed an incision and drainage of a right lateral ankle infection. Wound care was started with Betadine dressings and was changed to a Silver dressing. Initially a VAC was planned but was put on hold because of persistent swelling in the foolt and maceration of the periwound area and worsening of the surrounding compromised skin. She is currently on Ancef for a wound culture that showed Staphylococcus aureus. She denies fever. Her HgbA1c is elevated at 12.2. She had an MRI on 12/21/18. It showed soft tissue abscess adjacent to the lateral malleolus without MRI manifestations of osteomyelitis of the lateral malleolus. I was asked to evaluate this patient for surgical options for treatment. Patient was informed of the risks and complications of the procedure including alternatives to surgery. These were discussed with the patient personally. Patient voices understanding and wishes to proceed. Size of defect right lateral malleolus - 5 x 8 x 1.3 cm. x ray service technician: None Type of Anesthesia:: General Specimen's removed: Diabetic ulcer abscess right lateral malleolus to Pathology and Microbiology. Drains: None. Estimated Blood Loss (mL): 25 ml. Description of Procedure: Patient was taken to OR in supine position and was placed under general anesthesia. The right lateral ankle and foot was prepped and draped in the usual fashion. SCD's were placed for DVT prophylaxis. Perioperative antibiotics were given intravenously. I proceeded with a wide incision and drainage of the diabetic ulcer abscess as there was continued drainage and maceration of the ulcer. A small amount of pus was seen and an extensive amount of fat necrosis. The underlying fascia, peroneal retinaculum, and periosteum appeared thickened and inflamed. There was no exposed bone or joint. Some of the surrounding soft tissue appeared nonviable and was debrided and excised. A large curette was used to sharply debride the thickened and inflamed fascia, peroneal retinaculum, and periosteum. The overlying skin was macerated with some surrounding compromise posteriorly and was debrided and excised. Some of the tissue was sent to Microbiology for culture. A positive culture may necessitate antibiotic modification. The rest of the tissue was sent to Pathology for analysis to rule out carcinoma. The remaining wound appeared viable with good bleeding skin and wound edges. Hemostasis was obtained with electrocautery. The wound was irrigated with saline. The wound was then dressed with Mepitel nonadherent dressing followed by Kerlix gauze and Betadine followed by a dry Kerlix gauze and a compression MYLA wrap. The size of the wound after the incision and drainage and excisional debridement was 5 x 8 x 1.3 cm. Patient tolerated the procedure well and was sent to PACU in satisfactory condition. Patient will be sent upstairs for continued postop care. The VAC will be placed tomorrow. After discharge, will followup at [facility]. Once the HgbA1c decreases to below 8, we can consider delayed closure with skin grafting. Grafts/Implants Used: None. - Complications None. - Admit VTE Documentation VTE Present on Admission: No VTE Mechan Device Prophylaxis: SCD's VTE Pharm Prophylaxis ordered?: Yes Code Visit Surgery Charges CPT - 56193 ICD-10 - L02.415, M79.89, E11.622, R73.09 70005 L02.415, M79.89, E11.622, R73.09
--- NOTE | 2018-12-27 14:26 | NURSING ---
student nurses charting reviewed and used for educational learning purposes. dena
[2018-12-27 14:31] LABS: Bedside Glucose 163 mg/dL (70-110)
--- NOTE | 2018-12-27 14:46 | CASEMGMT ---
Social Work Note SW faxed updated clinicals to Mary. LUCRETIA spoke with Josie at [facility] and updated her that pt is not ready for discharge yet. Plan: [facility] once medically cleared Erika Tobar UNIX ADMINISTRATOR, TISSUE SPECIALIST
--- NOTE | 2018-12-27 15:17 | PCA ---
pt off floor
--- NOTE | 2018-12-27 16:00 | UL_PTH ---
PATIENT: DIONY ROCHA LOC: MS3 U#:[id number] AGE/SX: 53/F ROOM: [facility] RE12/21/[address]: Dr. Annie Duran MD : 1965 BED: 1 DIS: 12/29/2018 SPEC #: [id number] RECD: 12/27/18 16:49 STATUS: LON REQ #: [id number] ANEL: 12/27/18 16:[address]: Landen Allen DEPT: SURGICAL PATHOLOGY RECD BY: Malik Taylor ENTERED: 12/28/18 10:24 SP TYPE: ULCER OTHR DR: MD Dr. Ashely Toscano MD Dr. Daniel Peabody, MD Dr. James A Slaby, MD Dr. Mark Elderbrock, MD Dr. Robert Leininger, MD Tissues: Right ankle Procedures: Surgery Specimen Level III HEADER OPERATION: Incision and drainage, abscess, ankle PRE-OP DIAGNOSIS: Right ankle abscess TISSUE SUBMITTED: Diabetic ulcer abscess right lateral malleolus MICROSCOPIC DIAGNOSIS Skin and soft tissue of right lateral malleolus, excision: Ulceration with associated acute and chronic inflammation, granulation, hyperkeratosis and fat necrosis. AM:aristides 12/29/18 MICROSCOPIC DESCRIPTION Slides are reviewed. GROSS DESCRIPTION Received in fixative is one container labeled with the patient's name and designated diabetic ulcer abscess right lateral malleolus. The specimen consists of a piece of skin with underlying tissue measuring 8 x 4.5 cm and up to 1 cm in thickness. The specimen is previously, partially bisected. The skin surface shows focal extensive area of ulceration. No mass lesion is identified. Director Case sections are submitted in two cassettes. / SJ:aristides 12/28/18 TC:2 CPT: 80194
[2018-12-27] MEDS: 0.9% Normal Saline 1,000 ML 75 ML IV (17:08)
[2018-12-27] MEDS: Gabapentin 800 MG Tablet PO ×2 (17:09→22:38)
[2018-12-27] MEDS: Ascorbic Acid 500 MG Tablet PO (17:09)
[2018-12-27 18:16] LABS: Bedside Glucose 181 mg/dL (70-110)
[2018-12-27] MEDS: Morphine 2 MG/ML Syringe 1 MG IV (20:33)
[2018-12-27] MEDS: 0.9% NaCl Peripheral Flush Adult/Peds IV (20:36)
[2018-12-27 22:15] LABS: Bedside Glucose 344 mg/dL (70-110)
[2018-12-27] MEDS: Pramipexole Di-HCl 1 MG Tablet 1.5 MG PO (22:38)
[2018-12-27] MEDS: Atorvastatin Calcium 80 MG Tablet PO (22:38)
[2018-12-27] MEDS: oxyCODONE 5 MG Tablet PO (22:39)
[2018-12-27] MEDS: BENZOCAINE/MENTHOL 1 LOZENGE 2 LOZENGE MUCOUS MEM (22:45)
[2018-12-27] MEDS: Zolpidem Tartrate 5 MG Tablet PO (23:33)
[2018-12-28] VITALS (7 sets, daily range): BP systolic 132–158; BP diastolic 59–86; PULSE 78–92; RESP 16–18; TEMP 36.8–37.3; O2SAT 92–93
[2018-12-28] MEDS: oxyCODONE 5 MG Tablet PO ×2 (04:27→14:45)
[2018-12-28 05:46] LABS: Absolute Lymphocyte Count 1.29 X10^3/ul (0.83-4.51); Absolute Neutrophil Count 5.5 X10^3/uL (2.0-7.7); Basophil# 0.04 X10^3/uL; Basophil% 0.5 % (0-1); Eosinophil# 0.23 X10^3/uL; Hematocrit 28.3 % (37-47); Hemoglobin 8.5 g/dl (12.0-15.0); Lymphocyte # 1.29 X10^3/ul (4.0); Lymphocyte % 16.7 % (19-41); Mean Corpuscular Hgb 26.2 pg (27.0-32.0); Mean Corpuscular Volume 87.1 fL (81-99); Mean Platelet Vol. 10.3 fl (6.2-12.0); Monocyte# 0.59 X10^3/uL; Monocyte% 7.6 % (0-10); Neutrophil % 71.3 % (47-70); Platelet Count 324 K/mm3 (150-450); RBC Distribution Width CV 15.1 % (11.6-14.6); RBC Distribution Width SD 45.8 fl (35.1-43.9); Red Blood Count 3.25 M/mm3 (4.2-5.4); White Blood Count 7.7 K/mm3 (4.4-11.0)
[2018-12-28 05:50] LABS: POSITIVE COUNT NO; POSITIVE DIFFERENTIAL NO; POSITIVE MORPHOLOGY NO
[2018-12-28 06:06] LABS: Anion Gap 7 (5-15); BUN 7 mg/dL (7-18); BUN/Creat Ratio 7.2 RATIO (10-20); Calcium,Total 8.1 mg/dL (8.5-10.1); Chloride 105 mmol/L (98-107); Creatinine, Serum 0.97 mg/dL (0.55-1.02); EST Glomerular Filtration Rate 64 mL/min (>60); Est Glom Filt Rate - Afr Amer 78 mL/min (>60); Estimated Creatinine Clearance 62.79 ml/min; Glucose 304 mg/dL (74-106); Potassium 3.8 mmol/L (3.5-5.1); Prealbumin 9.1 mg/dL (20.0-40.0); Sodium Level 139 mmol/L (136-145)
[2018-12-28] MEDS: Insulin Lispro 100 UNIT/ML INSULN.PEN SC ×2 (06:50→11:09)
[2018-12-28] MEDS: 0.9% Normal Saline 1,000 ML 75 ML IV (06:51)
[2018-12-28] MEDS: Cefazolin 2 GM in 0.9% Normal Saline 100 ML IV ×3 (06:51→22:58)
[2018-12-28 07:06] LABS: Bedside Glucose 283 mg/dL (70-110)
--- NOTE | 2018-12-28 07:44 | RAD_ITS ---
STUDY: X-RAY - LEFT FOOT CLINICAL: Follow-up. TECHNIQUE: 3 view(s) of the foot. COMPARISON: Radiographs 08/26/2018. FINDINGS: Normal talus, calcaneus, and tarsal bones. Normal visualized subtalar, talonavicular, calcaneocuboid, tarsal and tarsometatarsal articulations. There is amputation of the fifth digit at the level proximal metatarsal without interval change. Normal metatarsophalangeal joint of the great toe. Normal tibial and fibular sesamoid bones. Normal interphalangeal joint of the great toe. Normal phalanges of the great toe. Normal second through fourth metatarsophalangeal joints. Normal interphalangeal joints and phalanges of the second through fourth toes. The soft tissue structures are unremarkable. RAD/Foot min 3 Views IMPRESSION: Amputation of the fifth digit without interval change. Electronically Signed: Saqib Roberts MD at 10:49 EDT Tel , Service support ,
--- NOTE | 2018-12-28 08:09 | PN.SURG_ITS ---
Patient Problems: Active and Suspected Problems (Last Reviewed 12/25/18 @ 16:03 by Jamee Sawant PA-C) Intractable nausea and vomiting (Acute) Severe sepsis (Acute) Wound of foot (Acute) Subjective: Patient was seen at bedside this morning. she denies pain to b/l lower extremity. she denies n/v/f/c. she is pod#1 from debridement of right leg ulceration by Dr. Shayne Taylor. patient has no other complaints. Objective: patient is alert and orientated x 3. left foot with superficial ulceration with periwound hyperkeratosis. there is no local signs of infection. there is granular base. there is no exposed tendon or bone. ulceration appears to be healing nicely without any signs of infection. right lower extremity bandaged - Physical Exam Vital Signs Temp Pulse Resp BP Pulse Ox 98.8 F 87 16 143/69 H 92 12/28/18 02:36 12/28/18 02:36 12/28/18 02:36 12/28/18 02:36 12/28/18 02:36 Oxygen Flow Rate (L/min) 1 Oxygen Delivery Method Room Air Weight: 84.5 kg Body Mass Index (BMI) 29.9 Finger Stick Blood Glucose 163 Intake and Output for Last 24 Hours 12/26/18 12/27/18 12/28/18 23:59 23:59 23:59 Intake Total 2876 / 2876 2493 / 2493 1542 / 1542 Output Total 1400 / 1400 2125 / 2125 1600 / 1600 Balance 1476 / 1476 368 / 368 -58 / -58 Microbiology Past 72 Hours 12/21/18 02:16 Blood Culture - Final Blood Culture (Wb) - Anticubital Left No growth in 5 days. 12/21/18 02:23 Blood Culture - Final Blood Culture (Wb) - Anticubital Right No growth in 5 days. 12/26/18 03:09 C. difficile DNA Amplification - Final Stool 12/21/18 16:44 Gram Stain - Final Biopsy - Ankle Wound Culture - Final Staphylococcus aureus Anaerobic Culture - Final No anaerobic bacteria isolated. Laboratory Tests Past 24 Hrs 12/28/18 12/28/18 04:56 04:56 WBC 7.7 RBC 3.25 L Hgb 8.5 L Hct 28.3 L MCV 87.1 MCH 26.2 L MCHC 30.0 L RDW 15.1 H RDW Differential 45.8 H Plt Count 324 MPV 10.3 Immature Gran % (Auto) 0.900 Neut % (Auto) 71.3 H Lymph % (Auto) 16.7 L [place] % (Auto) 7.6 Eos % (Auto) 3.0 Baso % (Auto) 0.5 Absolute Neuts (auto) 5.5 Absolute Lymphs (auto) 1.29 Total Counted Not Reportable Sodium 139 Potassium 3.8 Chloride 105 Carbon Dioxide 27.0 Anion Gap 7 BUN 7 Creatinine 0.97 Estim Creat Clear Calc 62.79 Est GFR (MDRD) Af Amer 78 Est GFR (MDRD) Non-Af 64 BUN/Creatinine Ratio 7.2 L Glucose 304 H Calcium 8.1 L Prealbumin 9.1 L POC Glucose 12/28/18 12/27/18 12/27/18 06:46 22:12 17:32 POC Glucose 283 H 344 H 181 H 12/27/18 12/27/18 14:26 12:11 POC Glucose 163 H 216 H Medical Necessity - Tobacco Use Smoking Status: Never smoker Tobacco Use: Non-smoker Assessment/Plan All Active Problems (Last Reviewed 12/25/18 @ 16:03 by Jamee Sawant PA-C) Intractable nausea and vomiting (Acute) Chest pain (Resolved) Osteomyelitis (Resolved) Severe sepsis (Acute) Wound of foot (Acute) NSTEMI (non-ST elevated myocardial infarction) (Resolved) Diabetic foot ulcer associated with type 2 diabetes mellitus (Acute) patient left foot ulceration appears to be healing without signs of infection. today, nonviable tissue was debrided with 15 blade. bleeding was controlled with pressure. there are no signs of infection. I want her to continue with boot and nwb to left lower extremity. I am going to order plain film xrays. although there is no signs of infection, I have informed patient the longer this ulceration remains open, the greater the risk of bone infection. past xrays have been negative. left foot appears stable. once she is cleared for discharge for right lower extremity, I will be ok with her discharge from podiatry stand point. patient will need srinivas applied to left foot daily at residential. will sign off if xrays negative
--- NOTE | 2018-12-28 08:47 | PN.SURG_ITS ---
Patient Problems: Active and Suspected Problems (Last Reviewed 12/25/18 @ 16:03 by Jamee Sawant PA-C) Intractable nausea and vomiting (Acute) Severe sepsis (Acute) Wound of foot (Acute) Subjective: Patient evaluated sitting up in bed. Patient denies nausea, vomiting. She continues to note abdominal bloating. She notes Reglan helped. - Physical Exam General: Alert, Oriented x3, Cooperative Abdomen: Bowel Sounds Present, Soft, Distended Vital Signs Temp Pulse Resp BP Pulse Ox 98.8 F 87 16 143/69 H 92 12/28/18 02:36 12/28/18 02:36 12/28/18 02:36 12/28/18 02:36 12/28/18 02:36 Oxygen Flow Rate (L/min) 1 Oxygen Delivery Method Room Air Weight: 186 lb 4.65 oz Body Mass Index (BMI) 29.9 Finger Stick Blood Glucose 163 Intake and Output for Last 24 Hours 12/26/18 12/27/18 12/28/18 23:59 23:59 23:59 Intake Total 2876 / 2876 2493 / 2493 1542 / 1542 Output Total 1400 / 1400 2125 / 2125 1600 / 1600 Balance 1476 / 1476 368 / 368 -58 / -58 Microbiology Past 72 Hours 12/21/18 02:16 Blood Culture - Final Blood Culture (Wb) - Anticubital Left No growth in 5 days. 12/21/18 02:23 Blood Culture - Final Blood Culture (Wb) - Anticubital Right No growth in 5 days. 12/26/18 03:09 C. difficile DNA Amplification - Final Stool 12/21/18 16:44 Gram Stain - Final Biopsy - Ankle Wound Culture - Final Staphylococcus aureus Anaerobic Culture - Final No anaerobic bacteria isolated. Laboratory Tests Past 24 Hrs 12/28/18 12/28/18 04:56 04:56 WBC 7.7 RBC 3.25 L Hgb 8.5 L Hct 28.3 L MCV 87.1 MCH 26.2 L MCHC 30.0 L RDW 15.1 H RDW Differential 45.8 H Plt Count 324 MPV 10.3 Immature Gran % (Auto) 0.900 Neut % (Auto) 71.3 H Lymph % (Auto) 16.7 L [place] % (Auto) 7.6 Eos % (Auto) 3.0 Baso % (Auto) 0.5 Absolute Neuts (auto) 5.5 Absolute Lymphs (auto) 1.29 Total Counted Not Reportable Sodium 139 Potassium 3.8 Chloride 105 Carbon Dioxide 27.0 Anion Gap 7 BUN 7 Creatinine 0.97 Estim Creat Clear Calc 62.79 Est GFR (MDRD) Af Amer 78 Est GFR (MDRD) Non-Af 64 BUN/Creatinine Ratio 7.2 L Glucose 304 H Calcium 8.1 L Prealbumin 9.1 L POC Glucose 12/28/18 12/27/18 12/27/18 06:46 22:12 17:32 POC Glucose 283 H 344 H 181 H 12/27/18 12/27/18 14:26 12:11 POC Glucose 163 H 216 H Medical Necessity - Tobacco Use Smoking Status: Never smoker Tobacco Use: Non-smoker Assessment/Plan All Active Problems (Last Reviewed 12/25/18 @ 16:03 by Jamee Sawant PA-C) Intractable nausea and vomiting (Acute) Chest pain (Resolved) Osteomyelitis (Resolved) Severe sepsis (Acute) Wound of foot (Acute) NSTEMI (non-ST elevated myocardial infarction) (Resolved) Diabetic foot ulcer associated with type 2 diabetes mellitus (Acute) I have been consulted in conjunction with Dr. Aden Impression: Intractable nausea, vomiting Will proceed with upper GI and gastric emptying study No new concerns form the nursing staff overnight We will continue to monitor this patient Spoke with radiology who will look at their schedule and talk with nuclear medicine for testing Code Visit Inpatient E&M: [id number] [facility] H[facility] L1
[2018-12-28] MEDS: Morphine 2 MG/ML Syringe 1 MG IV (09:03)
[2018-12-28] MEDS: Enoxaparin 40 MG/0.4 ML Syringe SC (09:03)
--- NOTE | 2018-12-28 10:15 | RAD_ITS ---
UPPER GI STUDY-SMALL BOWEL FOLLOW-THROUGH STUDY REASON FOR EXAM: Female, 53 years old. ABD PAIN/ABN CT SCAN CRAMPING, LOWER ABD PAIN/PRESSURE ON AND OFF DIARRHEA/CONSTIPATION FLUOROSCOPY TIME (if supplied): (12:05) minutes/seconds TECHNIQUE: Multiple views of the abdomen were performed after barium ingestion fluoroscopic examination of the terminal ileal loop is also performed with 24 spot views were obtained. 7 overhead films were obtained. COMPARISON: None. FINDINGS: SCRAP BUNCH MAKER VIEW: The bowel gas pattern is unremarkable there is no evidence of free air in the abdomen. UPPER GI STUDY The esophagus appears normal in size and shape it shows unremarkable mucosal pattern. There is no evidence of hiatal hernia or abnormal vascular compression. The stomach is normal in size shape and position the gastric mucosal folds are unremarkable. The duodenum and bulb and duodenal loop are unremarkable. The duodenal jejunal junction is in normal anatomic position to the left of the vertebral body of T12. SMALL BOWEL FOLLOW-THROUGH: Normal progression of barium is seen throughout different parts of the small bowel the cecum is reached at approximately 2 hours after barium ingestion. The duodenum, jejunum, and ileum mucosal pattern is unremarkable. Fluoroscopic examination of the terminal loop shows no abnormality. RAD/Upper GI/w Small Bowel IMPRESSION: Unremarkable study. Electronically Signed: Graciela Jensen, at 14:12 EDT Tel , Service support ,
--- NOTE | 2018-12-28 10:17 | PN.ID_ITS ---
Patient Problems: Active and Suspected Problems (Last Reviewed 12/25/18 @ 16:03 by Jamee Sawant PA-C) Necrotizing soft tissue infection (Acute) Hemoglobin A1c greater than 9.0% (Acute) 12.2 Diabetic ulcer of right ankle (Acute) diabetic ulcer abscess right lateral malleolus Abscess of right lower leg (Acute) diabetic ulcer abscess right lateral malleolus Intractable nausea and vomiting (Acute) Severe sepsis (Acute) Wound of foot (Acute) Subjective: No nausea, no diarrhea. Feeling ok, no fever. - Physical Exam General: Alert, Cooperative, No apparent distress Lungs: Clear to auscultation, Normal air movement Cardiovascular: Regular rate, Regular Rhythm Abdomen: Soft, Non Tender, Non-Distended Skin: Ulcer/ Wound - bandaged Vital Signs Temp Pulse Resp BP Pulse Ox 98.3 F 83 18 150/69 H 92 12/28/18 08:36 12/28/18 08:36 12/28/18 08:36 12/28/18 08:36 12/28/18 08:36 Oxygen Flow Rate (L/min) 1 Oxygen Delivery Method Room Air Weight: 84.5 kg Body Mass Index (BMI) 29.9 Finger Stick Blood Glucose 163 Intake and Output for Last 24 Hours 12/26/18 12/27/18 12/28/18 23:59 23:59 23:59 Intake Total 2876 / 2876 2493 / 2493 1542 / 1542 Output Total 1400 / 1400 2125 / 2125 1600 / 1600 Balance 1476 / 1476 368 / 368 -58 / -58 Microbiology Past 72 Hours 12/21/18 02:16 Blood Culture - Final Blood Culture (Wb) - Anticubital Left No growth in 5 days. 12/21/18 02:23 Blood Culture - Final Blood Culture (Wb) - Anticubital Right No growth in 5 days. 12/26/18 03:09 C. difficile DNA Amplification - Final Stool 12/21/18 16:44 Gram Stain - Final Biopsy - Ankle Wound Culture - Final Staphylococcus aureus Anaerobic Culture - Final No anaerobic bacteria isolated. Laboratory Tests Past 24 Hrs 12/28/18 12/28/18 04:56 04:56 WBC 7.7 RBC 3.25 L Hgb 8.5 L Hct 28.3 L MCV 87.1 MCH 26.2 L MCHC 30.0 L RDW 15.1 H RDW Differential 45.8 H Plt Count 324 MPV 10.3 Immature Gran % (Auto) 0.900 Neut % (Auto) 71.3 H Lymph % (Auto) 16.7 L [place] % (Auto) 7.6 Eos % (Auto) 3.0 Baso % (Auto) 0.5 Absolute Neuts (auto) 5.5 Absolute Lymphs (auto) 1.29 Total Counted Not Reportable Sodium 139 Potassium 3.8 Chloride 105 Carbon Dioxide 27.0 Anion Gap 7 BUN 7 Creatinine 0.97 Estim Creat Clear Calc 62.79 Est GFR (MDRD) Af Amer 78 Est GFR (MDRD) Non-Af 64 BUN/Creatinine Ratio 7.2 L Glucose 304 H Calcium 8.1 L Prealbumin 9.1 L POC Glucose 12/28/18 12/27/18 12/27/18 06:46 22:12 17:32 POC Glucose 283 H 344 H 181 H 12/27/18 12/27/18 14:26 12:11 POC Glucose 163 H 216 H Medical Necessity - Tobacco Use Smoking Status: Never smoker Tobacco Use: Non-smoker Route of nutrition/ use of supplements: [] Nutritional Intake: [] IV Site: [] Tirado Catheter: [] - Assessment/Plan Antibiotics: [] Assessment/Plan: [] Active and Suspected Problems (Last Reviewed 09/28/18 @ 15:32 by Saravanan Jean Baptiste MD) Severe sepsis (Acute) Wound of foot (Acute) R ankle MSSA abscess causing severe sepsis- MRI does not show osteo. Taken to OR 12/[address] Allen for I&D. Cx now with MSSA. Narrowed abx to cefazolin. Taken to OR 12/[address] Taylor, cx pending. Will follow
--- NOTE | 2018-12-28 10:41 | PN_ITS ---
Patient Problems: Active and Suspected Problems (Last Reviewed 12/25/18 @ 16:03 by Jamee Sawant PA-C) Intractable nausea and vomiting (Acute) Severe sepsis (Acute) Wound of foot (Acute) Subjective: Patient was seen and examined. Had postsurgical wound debridement done yesterday. Wound cultures negative so far. Wound VAC is on. Gastric emptying was done today - results pending Objective: Physical exam: General: Alert, Oriented x3, Cooperative, No apparent distress, not on oxygen HEENT: Atraumatic, PERRLA, EOMI, Normocephalic Oral: Moist Mucosa Neck: Supple Lungs: Clear to auscultation, Normal air movement Cardiovascular: Regular rate, Regular Rhythm, Normal S1, Normal S2, No murmurs Abdomen: Bowel Sounds Present, Soft, Non Tender, Non-Distended, No Hepato- splenomegaly Extremities: - - Bilateral lower extremity is wrapped in MYLA-wraps Skin: No rashes Musculoskeletal: No Tenderness to Palpation of Joints or Extremities Lymphatic: No Cervical, Supraclavicular, or Inguinal Adenopathy Neurological: Cranial nerves II-XII grossly intact, Neuro grossly intact Psych/Mental Status: Normal Affect, Appropriate Vitals/I&O's: Vital Signs Temp Pulse Resp BP Pulse Ox 98.3 F 83 18 150/69 H 92 12/28/18 08:36 12/28/18 08:36 12/28/18 08:36 12/28/18 08:36 12/28/18 08:36 Oxygen Flow Rate (L/min) 1 Oxygen Delivery Method Room Air Weight: 84.5 kg Body Mass Index (BMI) 29.9 Finger Stick Blood Glucose 163 Intake and Output for Last 24 Hours 12/26/18 12/27/18 12/28/18 23:59 23:59 23:59 Intake Total 2876 / 2876 2493 / 2493 1542 / 1542 Output Total 1400 / 1400 2125 / 2125 1600 / 1600 Balance 1476 / 1476 368 / 368 -58 / -58 Microbiology Past 72 Hours 12/21/18 02:16 Blood Culture (Wb) - Anticubital Left Blood Culture - Final No growth in 5 days. 12/21/18 02:23 Blood Culture (Wb) - Anticubital Right Blood Culture - Final No growth in 5 days. 12/26/18 03:09 Stool C. difficile DNA Amplification - Final 12/21/18 16:44 Biopsy - Ankle Gram Stain - Final 12/21/18 16:44 Biopsy - Ankle Wound Culture - Final Staphylococcus aureus 12/21/18 16:44 Biopsy - Ankle Anaerobic Culture - Final No anaerobic bacteria isolated. Laboratory Results 12/27/18 12:11: POC Glucose 216 H 12/27/18 14:26: POC Glucose 163 H 12/27/18 17:32: POC Glucose 181 H 12/27/18 22:12: POC Glucose 344 H 12/28/18 04:56: WBC 7.7, RBC 3.25 L, Hgb 8.5 L, Hct 28.3 L, MCV 87.1, MCH 26.2 L , MCHC 30.0 L, RDW 15.1 H, RDW Differential 45.8 H, Plt Count 324, MPV 10.3, Immature Gran % (Auto) 0.900, Neut % (Auto) 71.3 H, Lymph % (Auto) 16.7 L, [place] % (Auto) 7.6, Eos % (Auto) 3.0, Baso % (Auto) 0.5, Absolute Neuts (auto) 5.5, Absolute Lymphs (auto) 1.29, Total Counted Not Reportable 12/28/18 04:56: Sodium 139, Potassium 3.8, Chloride 105, Carbon Dioxide 27.0, Anion Gap 7, BUN 7, Creatinine 0.97, Estim Creat Clear Calc 62.79, Est GFR (MDRD) Af Amer 78, Est GFR (MDRD) Non-Af 64, BUN/Creatinine Ratio 7.2 L, Glucose 304 H, Calcium 8.1 L, Prealbumin 9.1 L 12/28/18 06:46: POC Glucose 283 H Current Medications Acetaminophen (Tylenol) 650 mg PO Q6H PRN PRN PRN Reason: Non-cardiac pain (mod-severe) Last Admin: 12/22/18 02:31 Dose: 650 mg Al Hydroxide/Mg Hydroxide (Mylanta Ii) 30 ml PO Q6H PRN PRN PRN Reason: Gastric burning [facility]) [facility] Last Admin: 12/28/18 07:35 Dose: Not Given Atorvastatin Calcium (Lipitor) 80 mg PO QHS [facility] Last Admin: 12/27/18 22:38 Dose: 80 mg Clopidogrel Bisulfate (Plavix) 75 mg PO DAILY [facility] Last Admin: 12/27/18 07:54 Dose: Not Given Enoxaparin Sodium (Lovenox) 40 mg SC DAILY@1000 [facility] Last Admin: 12/28/18 09:03 Dose: 40 mg Gabapentin (Neurontin) 800 mg PO 0800,1700,2200 [facility] Last Admin: 12/28/18 07:35 Dose: Not Given Hydralazine HCl (Apresoline Iv) 10 mg IV Q4H PRN PRN PRN Reason: SBP > 160 Last Admin: 12/25/18 04:41 Dose: 10 mg Cefazolin Sodium 2 gm/ Sodium (Chloride) 110 mls @ 150 mls/hr IV Q8 [facility] Last Admin: 12/28/18 06:51 Dose: 150 mls/hr Pantoprazole Sodium 40 mg/ (Sodium Chloride) 110 mls @ 330 mls/hr IV Q12 [facility] Last Admin: 12/28/18 09:03 Dose: 330 mls/hr Insulin Glargine (Lantus (Bk)) 32 units SC 0800 [facility] Insulin Human Lispro (Humalog Kwikpen (Bkc)) 0 unit SC ACHS [facility]; Protocol Last Admin: 12/28/18 06:50 Dose: 6 u Lisinopril (Zestril) 5 mg PO DAILY [facility] Last Admin: 12/27/18 10:10 Dose: Not Given Loperamide HCl (Imodium) 2 mg PO Q2H PRN PRN PRN Reason: Diarrhea Last Admin: 12/26/18 18:46 Dose: 2 mg Magnesium Hydroxide (Milk Of Magnesia) 30 ml PO DAILY PRN PRN PRN Reason: Constipation Last Admin: 12/24/18 08:44 Dose: 30 ml Magnesium Hydroxide (Milk Of Magnesia) 30 ml PO DAILY PRN PRN PRN Reason: Constipation Metoclopramide HCl (Reglan) 5 mg IV Q6H PRN PRN PRN Reason: NAUSEA Last Admin: 12/25/18 14:38 Dose: 5 mg Metoprolol Tartrate (Lopressor (Beta Tin)) 12.5 mg PO BID [facility] Last Admin: 12/27/18 20:35 Dose: 12.5 mg Morphine Sulfate () 1 mg IV Q4H PRN PRN PRN Reason: PAIN Last Admin: 12/28/18 09:03 Dose: 1 mg Nutritional Formula (Ted - Dunn Flavor) 1 packet PO BIDCM [facility] Last Admin: 12/28/18 07:35 Dose: Not Given Ondansetron HCl (Zofran) 4 mg IV Q8H PRN PRN PRN Reason: NAUSEA/VOMITING Last Admin: 12/26/18 09:15 Dose: 4 mg Oxycodone HCl (Oxyir) 5 mg PO Q6H PRN PRN PRN Reason: SEVERE PAIN (6-10/10) Last Admin: 12/28/18 04:27 Dose: 5 mg Pramipexole Dihydrochloride (Mirapex) 1.5 mg PO BID TAB Last Admin: 12/27/18 22:38 Dose: 1.5 mg Sodium Chloride () 5 - 15 ml IV UD PRN PRN Reason: SALINE FLUSH Last Admin: 12/27/18 20:36 Dose: 10 ml Throat Lozenges (Cepacol Sore Throat Lozenge) 2 lozenge MUCOUS MEM Q2H PRN PRN PRN Reason: SORE THROAT Last Admin: 12/27/18 22:45 Dose: 2 lozenge Zolpidem Tartrate (Ambien (Generic)) 5 mg PO QHS PRN PRN PRN Reason: INSOMNIA Last Admin: 12/27/18 23:33 Dose: 5 mg Medical Necessity - Tobacco Use Smoking Status: Never smoker Tobacco Use: Non-smoker Assessment/Plan All Active Problems (Last Reviewed 12/25/18 @ 16:03 by Jamee Sawant PA-C) Necrotizing soft tissue infection (Acute) Hemoglobin A1c greater than 9.0% (Acute) Diabetic ulcer of right ankle (Acute) Abscess of right lower leg (Acute) Intractable nausea and vomiting (Acute) Chest pain (Resolved) Osteomyelitis (Resolved) Severe sepsis (Acute) Wound of foot (Acute) NSTEMI (non-ST elevated myocardial infarction) (Resolved) Diabetic foot ulcer associated with type 2 diabetes mellitus (Acute) 53-year-old female with past medical history of type 2 diabetes, hypertension, hyperlipidemia, CKD stage III, who comes in with right foot wound infection and found to be in severe sepsis. 1. MSSA right ankle abscess status post I & D on 12/21/18, status post wound debridement on 12/27/18, s/p wound vac, on IV cefazolin, ID consulted 2. Nausea and vomiting, improved, gastric emptying studies today, results pe nding, on reglan prn 3. Severe sepsis secondary to MSSA right ankle abscess, improving, patient, stable vitals, no leukocytosis, on IV cefazolin Wound cultures growing staph aureus, negative blood cultures 4. Type 2 DM, complicated by neuropathy, history of noncompliance, sugars are slightly uncontrolled Will increase Lantus to 38 units, will add 5 units premeal as well as insulin sliding scale, Continue to monitor blood sugars with Accu-Cheks and insulin sliding scale 5. CAD, no acute symptomatic, on plavix, statin 6. Hypertension, controlled, on Lisinopril, metoprolol Will continue to monitor 7. Hyperlipidemia, on statin 8. CKD stage 3 secondary diabetic nephropathy, stable 9. Anxiety disorder, on Lexapro 10. DVT PPx- Lovenox SC Code Visit Inpatient E&M: 36425 Subs Hosp L2
[2018-12-28 11:15] LABS: Bedside Glucose 264 mg/dL (70-110)
--- NOTE | 2018-12-28 12:10 | NURSING ---
wound photo: right lateral malleolus
--- NOTE | 2018-12-28 13:06 | CASEMGMT ---
Social Work Note Pt is not ready for discharge today. LUCRETIA placed a call to Josie at [facility] and updated her that pt is not ready for discharge today and that pt had a wound vac placed today. LUCRETIA faxed updated clinicals to [facility]. Plan: [facility] once medically cleared Erika Tobar HEAD USHER, SOILED LINEN DISTRIBUTOR
--- NOTE | 2018-12-28 13:31 | PCM.PN.SRG ---
Patient Problems: Active and Suspected Problems (Last Reviewed 12/25/18 @ 16:03 by Jamee Sawant PA-C) Intractable nausea and vomiting (Acute) Severe sepsis (Acute) Wound of foot (Acute) Subjective: Postop #1 Patient is resting comfortably. VAC applied today. She tolerated reasonably well. - Physical Exam General: Alert, Oriented x3 HEENT: PERRLA, EOMI Oral: Moist Mucosa Neck: Supple Abdomen: Soft, Non-Distended Skin: Ulcer/ Wound - right lateral malleolus wound is stable. No active bleeding seen. No further evidence of infection. VAC applied today without difficulty. Vital Signs Temp Pulse Resp BP Pulse Ox 98.3 F 83 18 150/69 H 92 12/28/18 08:36 12/28/18 08:36 12/28/18 08:36 12/28/18 08:36 12/28/18 08:36 Oxygen Flow Rate (L/min) 1 Oxygen Delivery Method Room Air Weight: 186 lb 4.65 oz Body Mass Index (BMI) 29.9 Finger Stick Blood Glucose 163 Intake and Output for Last 24 Hours 12/26/18 12/27/18 12/28/18 23:59 23:59 23:59 Intake Total 2876 / 2876 2493 / 2493 1830 / 1830 Output Total 1400 / 1400 2125 / 2125 1600 / 1600 Balance 1476 / 1476 368 / 368 230 / 230 Microbiology Past 72 Hours 12/27/18 14:30 Gram Stain - Final Tissue - Ankle Wound Culture - Preliminary No growth-Final to follow 12/21/18 02:16 Blood Culture - Final Blood Culture (Wb) - Anticubital Left No growth in 5 days. 12/21/18 02:23 Blood Culture - Final Blood Culture (Wb) - Anticubital Right No growth in 5 days. 12/26/18 03:09 C. difficile DNA Amplification - Final Stool Laboratory Tests Past 24 Hrs 12/28/18 12/28/18 04:56 04:56 WBC 7.7 RBC 3.25 L Hgb 8.5 L Hct 28.3 L MCV 87.1 MCH 26.2 L MCHC 30.0 L RDW 15.1 H RDW Differential 45.8 H Plt Count 324 MPV 10.3 Immature Gran % (Auto) 0.900 Neut % (Auto) 71.3 H Lymph % (Auto) 16.7 L [place] % (Auto) 7.6 Eos % (Auto) 3.0 Baso % (Auto) 0.5 Absolute Neuts (auto) 5.5 Absolute Lymphs (auto) 1.29 Total Counted Not Reportable Sodium 139 Potassium 3.8 Chloride 105 Carbon Dioxide 27.0 Anion Gap 7 BUN 7 Creatinine 0.97 Estim Creat Clear Calc 62.79 Est GFR (MDRD) Af Amer 78 Est GFR (MDRD) Non-Af 64 BUN/Creatinine Ratio 7.2 L Glucose 304 H Calcium 8.1 L Prealbumin 9.1 L POC Glucose 12/28/18 12/28/18 12/27/18 11:07 06:46 22:12 POC Glucose 264 H 283 H 344 H 12/27/18 12/27/18 17:32 14:26 POC Glucose 181 H 163 H Medical Necessity - Tobacco Use Smoking Status: Never smoker Tobacco Use: Non-smoker Assessment/Plan All Active Problems (Last Reviewed 12/25/18 @ 16:03 by Jamee Sawant PA-C) Necrotizing soft tissue infection (Acute) Hemoglobin A1c greater than 9.0% (Acute) Diabetic ulcer of right ankle (Acute) Abscess of right lower leg (Acute) Intractable nausea and vomiting (Acute) Chest pain (Resolved) Osteomyelitis (Resolved) Severe sepsis (Acute) Wound of foot (Acute) NSTEMI (non-ST elevated myocardial infarction) (Resolved) Diabetic foot ulcer associated with type 2 diabetes mellitus (Acute) 1. Nonhealing diabetic ulcer abscess right lateral malleolus. 2. Diabetes mellitus. Right lateral malleolus wound is stable. No active bleeding seen. VAC applied today without difficulty. Culture shows Staphylococcus aureus. She is currently on Ancef. Operative cultures are pending. Anticipate increased metabolic demands from the wound and from the infection. Prealbumin was 9.1. Encourage nutritional supplementation with protein to help the healing process. Discussed with the patient the importance of better diabetes control with a drastic lowering of her HgbA1c. A persistent double digit HgbA1c increases the risk for an eventual leg amputation. Patient voices understanding. After discharge, can followup at the Wound Center. If there is a plateau in the healing process, can proceed with delayed closure with skin grafting. At the time of the skin graft or flap which is elective, the patient's diabetes mellitus needs to be in better control with a HgbA1c less than 8.
[2018-12-28] MEDS: Lisinopril 5 MG Tablet PO (14:41)
[2018-12-28] MEDS: Metoprolol Tartrate 25 MG Tablet 12.5 MG PO ×2 (14:41→22:59)
[2018-12-28] MEDS: Clopidogrel Bisulfate 75 MG Tablet PO (14:41)
[2018-12-28] MEDS: Pramipexole Di-HCl 1 MG Tablet 1.5 MG PO ×2 (14:42→22:59)
[2018-12-28 16:25] LABS: Bedside Glucose 173 mg/dL (70-110)
[2018-12-28] MEDS: Ondansetron 4 MG/2 ML Vial IV (17:16)
[2018-12-28] MEDS: Gabapentin 800 MG Tablet PO ×2 (19:13→22:59)
[2018-12-28] MEDS: Atorvastatin Calcium 80 MG Tablet PO (22:58)
[2018-12-28] MEDS: 0.9% NaCl Peripheral Flush Adult/Peds IV (23:00)
[2018-12-28] MEDS: Pantoprazole Sodium 40 MG Tablet PO (23:07)
[2018-12-28 23:11] LABS: Bedside Glucose 164 mg/dL (70-110)
[2018-12-29] MEDS: Insulin Lispro 100 UNIT/ML INSULN.PEN SC ×2 (00:01→12:45)
[2018-12-29 02:18] VITALS: BP 147/79; PULSE 84; RESP 18; TEMP 36.6; O2SAT 95
[2018-12-29] MEDS: Ondansetron 4 MG/2 ML Vial IV (02:29)
[2018-12-29] MEDS: 0.9% NaCl Peripheral Flush Adult/Peds IV ×2 (02:29→06:34)
[2018-12-29] MEDS: oxyCODONE 5 MG Tablet PO (02:37)
[2018-12-29] MEDS: Cefazolin 2 GM in 0.9% Normal Saline 100 ML IV ×2 (06:35→13:44)
[2018-12-29 06:46] LABS: Bedside Glucose 142 mg/dL (70-110)
--- NOTE | 2018-12-29 08:00 | NM_ITS ---
CLINICAL: 53-year-old diabetic female with reported history of chronic nausea. SEMI-SOLID PHASE 99m Tc SULFUR COLLOID GASTRIC EMPTYING STUDY COMPARISON: None available FINDINGS: The patient was administered 1.1 mCi of 99m Tc sulfur colloid mixed with oatmeal and consumed per os. Image acquisitions in the anterior-posterior projections for a total of 60 minutes. There is prompt visualization of the stomach. There is no gastroesophageal reflux identified. The T1/2 linear fit was calculated to be 32.34 minutes, (Normal: 12-56 minutes). NM/Gastric Emptying Study IMPRESSION: 1. NORMAL 99m Tc sulfur colloid semi-solid phase (oatmeal) gastric emptying imaging examination. A. There is normal and preserved semi-solid phase gastric emptying compared to normal controls with maintained first order kinetics throughout all components of the examination. (Lynette et al, J Nucl Med Tech 38: 186, 2010). Electronically Signed: Scot Barakat DO at 12:29 EDT Tel , Service support ,
--- NOTE | 2018-12-29 09:02 | NURSING ---
wound photo: left plantar foot
[2018-12-29 09:03] VITALS: BP 164/81; PULSE 91; RESP 18; TEMP 36.9; O2SAT 91
--- NOTE | 2018-12-29 09:20 | NURSING ---
to radiology for testing
--- NOTE | 2018-12-29 10:37 | PCM.TXEXTCAR ---
- Diet 12/29/18 07:19 NPO [Diet: Nothing Per Oral] Type of Dietary Supplement:: Glucerna Shake Is pt able to select menu?: Yes - Routine Orders/Code Status Routine Lab Work: CBC - within 3 days, BMP - within 3 days - Wound(s) right ankle Wound Type: Neuropathic/Diabetic Foot Ulcer bottom left foot Wound Type: Neuropathic/Diabetic Foot Ulcer Dressing Change: Adaptic right lateral ankle Wound Type: Neuropathic/Diabetic Foot Ulcer Dressing Change: applied KCI wound VAC LEFT FOOT Wound Type: Neuropathic/Diabetic Foot Ulcer Dressing Change: Vanessa with dry dressing - Therapies Extremity Affected:: Bilateral Lower Physical Therapy: Eval and Treat Occupational Therapy: Eval and Treat - Allergies/Procedures Done in Hospital Allergies/Adverse Reactions: Allergies oxycodone [From OxyContin] Allergy (Verified 12/20/18 23:10) Shortness of breath Penicillins Allergy (Verified 12/20/18 23:10) Shortness of breath metronidazole Adverse Reaction (Verified 12/24/18 17:28) Nausea Procedures: Wound Vac placement - Type of Care/Length of Stay Estimated LOS: Convalescent Care Less Than 30 days Type of Care Needed: Skilled Rehab Potential: Good Prognosis: Good - Additional Orders/Day of Discharge Additional Orders: Continue on continuous wound VAC to the foot. Wound VAC wound changes every other day or 3 times a week. Strict blood sugar control. Day of Discharge: 12/29/18 - Dietary and Speech Recommendations Dietitian Recommendations/Changes: Suggest readvance diet as tolerated to 1800 calorie, cardiac with Glucerna ONS at meals as tolerated. Continue 1 packet Ted BID for wound healing--order from pharmacy. - Follow Up Care Primary Care Physician: Raúl Eric MD [Primary Care Provider] - Please follow up with your Primary Care Physician in: within 1-2 weeks of discharge Please Follow Up With: Shayne Taylor MD When: in 1 month at the wound center
--- NOTE | 2018-12-29 11:00 | NURSING ---
return to floor
--- NOTE | 2018-12-29 11:58 | DS.PCM_ITS ---
Discharge Date and Diagnosis - Problem List Patient Problems: Active and Suspected Problems (Last Reviewed 12/25/18 @ 16:03 by Jamee Sawant PA-C) Intractable nausea and vomiting (Acute) Severe sepsis (Acute) Wound of foot (Acute) Date of Admission: 12/21/18 Date of Discharge: 12/29/18 - Primary Discharge Diagnosis Active and Suspected Problems (Last Reviewed 12/25/18 @ 16:03 by Jamee Sawant PA-C) MSSA right ankle abscess status post I&D, status post wound debridement Severe sepsis secondary to MSSA right ankle abscess Intractable nausea and vomiting Hyperglycemia, poorly controlled type 2 diabetes - Secondary Discharge Diagnosis Chronic Problems (Last Reviewed 12/25/18 @ 16:03 by Jamee Sawant PA-C) CAD (coronary artery disease) (Chronic) HTN (hypertension) (Chronic) HLD (hyperlipidemia) (Chronic) Neuropathic pain (Chronic) GERD (gastroesophageal reflux disease) (Chronic) Hypomagnesemia (Chronic) Back pain, chronic (Chronic) Depression (Chronic) RLS (restless legs syndrome) (Chronic) Type II diabetes mellitus, uncontrolled (Chronic) Anxiety state (Chronic) Hospital Course and Treatment Imaging Results: 12/29/18 08:00 Gastric Emptying Study [NM] Routine Consultations 12/21/18 05:33 Consult: Onc/Wound/pressure test operator Routine Comment: ID General surgery Operations: None, - Procedures: - - Gastric emptying study Summary of Care Provided: 53-year-old female with past medical history of type 2 diabetes, hypertension, hyperlipidemia, CKD stage III, who comes in with right foot wound infection and found to be in severe sepsis. 1. MSSA right ankle abscess status post I & D on 12/21/18, status post wound debridement on 12/27/18, s/p wound vac, managed on IV antibiotics Discharged on 2 more days of Keflex. 2. Nausea and vomiting, improved, gastric emptying studies negative, discharged on Reglan as needed 3. Severe sepsis secondary to MSSA right ankle abscess, improving, patient, stable vitals, no leukocytosis, ound cultures growing staph aureus, negative blood cultures 4. Type 2 DM, complicated by neuropathy, history of noncompliance, sugars were slightly uncontrolled in this admission, managed on Lantus, pre-meal insulin as well as insulin sliding scale. 5. CAD, no acute symptomatic, on plavix, statin 6. Hypertension, controlled, on Lisinopril, metoprolol 7. Hyperlipidemia, on statin 8. CKD stage 3 secondary diabetic nephropathy, stable 9. Anxiety disorder, on Lexapro Patient Problems: Active and Suspected Problems (Last Reviewed 12/25/18 @ 16:03 by Jamee Sawant PA-C) Intractable nausea and vomiting (Acute) Severe sepsis (Acute) Wound of foot (Acute) Subjective: On the day of discharge, patient was seen and examined. Feels improved. Denies any fever or chills. Objective: Physical exam: General: Alert, Oriented x3, Cooperative, No apparent distress, not on oxygen HEENT: Atraumatic, PERRLA, EOMI, Normocephalic Oral: Moist Mucosa Neck: Supple Lungs: Clear to auscultation, Normal air movement Cardiovascular: Regular rate, Regular Rhythm, Normal S1, Normal S2, No murmurs Abdomen: Bowel Sounds Present, Soft, Non Tender, Non-Distended, No Hepato- splenomegaly Extremities: - - Bilateral lower extremity is wrapped in MYLA-wraps Skin: No rashes Musculoskeletal: No Tenderness to Palpation of Joints or Extremities Lymphatic: No Cervical, Supraclavicular, or Inguinal Adenopathy Neurological: Cranial nerves II-XII grossly intact, Neuro grossly intact Psych/Mental Status: Normal Affect, Appropriate - Physical Exam Vital Signs Temp Pulse Resp BP Pulse Ox 98.5 F 91 18 164/81 H 91 12/29/18 09:03 12/29/18 09:03 12/29/18 09:03 12/29/18 09:03 12/29/18 09:03 Oxygen Flow Rate (L/min) 1 Oxygen Delivery Method Room Air Weight: 84.5 kg Body Mass Index (BMI) 29.9 Finger Stick Blood Glucose 163 Intake and Output for Last 24 Hours 12/27/18 12/28/18 12/29/18 23:59 23:59 23:59 Intake Total 2493 / 2493 2146 / 2146 365 / 365 Output Total 2125 / 2125 1600 / 1600 Balance 368 / 368 546 / 546 365 / 365 Microbiology Past 72 Hours 12/27/18 14:30 Gram Stain - Final Tissue - Ankle Wound Culture - Preliminary Staphylococcus aureus POC Glucose 12/29/18 12/28/18 12/28/18 06:32 23:05 16:20 POC Glucose 142 H 164 H 173 H Discharge Diet: Low fat/ Low Cholesterol, 2000 mg Sodium Diet, Carb Control Diet Discharge Activity: Return to Normal Activity Home Medications: Medications to take at Discharge Ascorbic Acid [Vitamin C] 500 mg PO BIDCM 09/20/18 Gabapentin [Neurontin] 800 mg PO TIDCM 09/20/18 Ropinirole HCl [Requip] 3 mg PO BID 09/20/18 Atorvastatin Calcium [Lipitor] 80 mg PO QHS 09/23/18 Lisinopril [Zestril] 5 mg PO DAILY 09/23/18 Metoprolol Tartrate [Lopressor (beta kunal)] 12.5 mg PO BID 09/23/18 escitalopram 10 mg tablet 10 mg PO DAILY 09/28/18 Mag Hydrox/Al Hydrox/Simeth [Mylanta II] 30 ml PO Q6H PRN PRN udc 11/11/18 Magnesium Hydroxide [Milk Of Magnesia] 30 ml PO DAILY PRN PRN udc 11/11/18 Clopidogrel Bisulfate [Plavix] 75 mg PO DAILY 12/21/18 Acetaminophen [Tylenol Tablet] 650 mg PO Q6H PRN PRN tablet 12/29/18 Cephalexin [Keflex] 500 mg PO 4X/DAY #48 capsule 12/29/18 Insulin Glargine [Lantus SoloStar Pen] 38 units SC 0800 pen 12/29/18 Insulin Lispro [Humalog KwikPen] 5 unit SQ BREAKFAST insuln.pen 12/29/18 Insulin Lispro [Humalog KwikPen] 5 unit SQ DINNER insuln.pen 12/29/18 Insulin Lispro [Humalog KwikPen] 5 unit SQ LUNCH insuln.pen 12/29/18 Insulin Lispro [Humalog KwikPen] See Protocol SC ACHS insuln.pen 12/29/18 Iron Polysaccharide Complex [Ferrex 150] 150 mg PO DAILYCM capsule 12/29/18 Metoclopramide [Reglan] 10 mg PO TID PRN #30 tablet 12/29/18 Nutritional Supplement [Ted - ORANGE FLAVOR] 1 packet PO BIDCM packet 12/29/18 Oxycodone [Oxyir] 5 mg PO Q6H PRN PRN 5 Days #20 tab 12/29/18 Pantoprazole Sodium [Protonix] 40 mg PO BID tablet 03/22/19 Following Prescrptions Were Given to Patient: Oxycodone [Oxyir] 5 mg PO Q6H PRN PRN 5 Days #20 tab PRN Reason: Severe Pain (6-07/19) Metoclopramide [Reglan] 10 mg PO TID PRN #30 tablet PRN Reason: Nausea/Vomiting Cephalexin [Keflex] 500 mg PO 4X/DAY #48 capsule Primary Care Physician: Raúl Eric MD [Primary Care Provider] - Please follow up with your Primary Care Physician in: within 1-2 weeks of discharge Please Follow Up With: Shayne Taylor MD When: in 1 month at the wound center Disposition: Care Home facility Minutes spent on discharge:: 55 Patient Condition:: Stable Medical Necessity - Tobacco Use Smoking Status: Never smoker Tobacco Use: Non-smoker Meaningful Use Info Meaningful Use Diagnoses (Choose all that apply): None applicable Code Visit Inpatient E&M: 28185 Disch Hosp
[2018-12-29] MEDS: Gabapentin 800 MG Tablet PO (12:42)
[2018-12-29] MEDS: Ascorbic Acid 500 MG Tablet PO (12:42)
[2018-12-29 12:43] VITALS: BP 164/84; PULSE 91
[2018-12-29] MEDS: Metoprolol Tartrate 25 MG Tablet 12.5 MG PO (12:43)
[2018-12-29] MEDS: Enoxaparin 40 MG/0.4 ML Syringe SC (12:43)
[2018-12-29] MEDS: Pramipexole Di-HCl 1 MG Tablet 1.5 MG PO (12:44)
[2018-12-29] MEDS: Pantoprazole Sodium 40 MG Tablet PO (12:44)
[2018-12-29] MEDS: Clopidogrel Bisulfate 75 MG Tablet PO (12:44)
[2018-12-29] MEDS: Insulin Lispro 100 UNIT/ML INSULN.PEN SQ (12:45)
[2018-12-29] MEDS: Lisinopril 5 MG Tablet PO (12:45)
[2018-12-29 13:01] LABS: Bedside Glucose 213 mg/dL (70-110)
[2018-12-29 13:37] VITALS: BP 157/82; PULSE 92; RESP 18; TEMP 36.8; O2SAT 96
--- NOTE | 2018-12-29 13:59 | CASEMGMT ---
Addendum entered by Erika Tobar 12/29/18 15:31: LUCRETIA placed a call to Hiro at [facility] and updated her that pt will be discharged to [facility] today. Original Note: Social Work Note Pt is being discharged today. LUCRETIA faxed completed discharge paperwork to [facility] including transfer to extended care facility, signed medication list and any scripts. Originals in SNF folder and copy on pt's chart. LUCRETIA had completed [facility]escent [facility] in [facility] last week. Originals in SNF folder and copy on pt's chart. LUCRETIA arranged transportation via wheelchair van for 3:00pm. Transportation form on SNF folder and copy on pt's chart. LUCRETIA updated pt, RN and Josie at [facility] of transportation time. Plan: Pt to discharge to [facility] today skilled via wheelchair van with Bessy transporting Erika Tobar NEWSPAPER PRESS OPERATOR APPRENTICE, BOOKSEAMER BLINDSTITCH
--- NOTE | 2018-12-29 14:15 | NURSING ---
Wound VAC removed from the right lateral malleolus since patient is being discharged to the long-term. the wound VAC will be reapplied at the long-term. a wet to dry dressing was applied. wrapped with kerlix and an MYLA wrap.
--- NOTE | 2018-12-29 14:33 | PCM.PN.ID ---
Patient Problems: Active and Suspected Problems (Last Reviewed 12/25/18 @ 16:03 by Jamee Sawant PA-C) Intractable nausea and vomiting (Acute) Severe sepsis (Acute) Wound of foot (Acute) Subjective: Feeling ok, d/c today, no fever - Physical Exam General: Alert, Cooperative, No apparent distress Lungs: Clear to auscultation, Normal air movement Cardiovascular: Regular rate, Regular Rhythm Abdomen: Soft, Non Tender, Non-Distended Skin: Ulcer/ Wound Vital Signs Temp Pulse Resp BP Pulse Ox 98.3 F 92 18 157/82 H 96 12/29/18 13:37 12/29/18 13:37 12/29/18 13:37 12/29/18 13:37 12/29/18 13:37 Oxygen Flow Rate (L/min) 1 Oxygen Delivery Method Room Air Weight: 84.5 kg Body Mass Index (BMI) 29.9 Finger Stick Blood Glucose 163 Intake and Output for Last 24 Hours 12/27/18 12/28/18 12/29/18 23:59 23:59 23:59 Intake Total 2493 / 2493 2146 / 2146 905 / 905 Output Total 2125 / 2125 1600 / 1600 650 / 650 Balance 368 / 368 546 / 546 255 / 255 Microbiology Past 72 Hours 12/27/18 14:30 Gram Stain - Final Tissue - Ankle Wound Culture - Preliminary Staphylococcus aureus POC Glucose 12/29/18 12/29/18 12/28/18 12:39 06:32 23:05 POC Glucose 213 H 142 H 164 H 12/28/18 16:20 POC Glucose 173 H Medical Necessity - Tobacco Use Smoking Status: Never smoker Tobacco Use: Non-smoker Route of nutrition/ use of supplements: [] Nutritional Intake: [] IV Site: [] Tirado Catheter: [] - Assessment/Plan Antibiotics: [] Assessment/Plan: [] Active and Suspected Problems (Last Reviewed 09/28/18 @ 15:32 by Saravanan Jean Baptiste MD) Severe sepsis (Acute) Wound of foot (Acute) R ankle MSSA abscess causing severe sepsis- MRI does not show osteo. Taken to OR 12/[address] Allen for I&D. Cx now with MSSA. Narrowed abx to cefazolin. Taken to OR 12/[address] Taylor, cx showing rare staph. Ok for d/c on 12 more days of keflex. Will follow
== END 2018-12-29 15:35 | disposition skilled nursing facility (03) | DRG 854 ==
LOC: ED 12-21 01:44 → MS3 12-21 04:27
PROVIDERS: Anesthesiology; Internal Medicine; Internal Medicine Infectious Disease; Podiatrist Foot & Ankle Surgery; Surgery; Admitting Provider Family Medicine; Emergency Provider Emergency Medicine; Family Provider Family Medicine; PCP Family Medicine; Referring Provider Family Medicine; Visit Provider Internal Medicine
PROC: 0JBQ0ZZ Excision of Right Foot Subcutaneous Tissue and Fascia, Open Approach (ICD-10-PCS; principal; 2018-12-21 15:50)
DX: A41.01 Sepsis due to Methicillin susceptible Staphylococcus aureus (principal); L03.115 Cellulitis of right lower limb; L02.415 Cutaneous abscess of right lower limb; R65.20 Severe sepsis without septic shock; E11.42 Type 2 diabetes mellitus with diabetic polyneuropathy; I25.10 Atherosclerotic heart disease of native coronary artery without angina pectoris; G25.81 Restless legs syndrome; E78.5 Hyperlipidemia, unspecified; E11.621 Type 2 diabetes mellitus with foot ulcer; E11.628 Type 2 diabetes mellitus with other skin complications; L97.519 Non-pressure chronic ulcer of other part of right foot with unspecified severity; G89.29 Other chronic pain; M54.9 Dorsalgia, unspecified; R11.2 Nausea with vomiting, unspecified; E11.65 Type 2 diabetes mellitus with hyperglycemia; K21.9 Gastro-esophageal reflux disease without esophagitis; E83.42 Hypomagnesemia; I12.9 Hypertensive chronic kidney disease with stage 1 through stage 4 chronic kidney disease, or unspecified chronic kidney disease; E11.22 Type 2 diabetes mellitus with diabetic chronic kidney disease; N18.3 Chronic kidney disease, stage 3 (moderate); F41.9 Anxiety disorder, unspecified; Z79.4 Long term (current) use of insulin; Z95.5 Presence of coronary angioplasty implant and graft
CPT/HCPCS: 36415; 73600; 73610; 73630; 73721; 74018; 74249; 76000; 78264; 80048; 80076; 80202; 81001; 82962; 83036; 83605; 83735; 84134; 85025; 85027; 85610; 85652; 85730; 86140; 87015; 87040; 87070; 87075; 87077; 87102; 87116; 87186; 87205; 87206; 87493; 88304; 93005; 93971; 97110; 97162; 97165; 97530; 97535; 97802; 99282; A9541; J7030; J7050; A4216; J0696; J2405

== ENCOUNTER 2019-01-03 16:41 | Emergency (ER) | payer MEDICARE, MEDICAID, SELFPAY ==
[2018-09-21 13:23] VITALS: BMI 29.3
[2018-12-27 11:30] VITALS: BMI 29.9
[2019-01-03 16:44] VITALS: BP 150/107; PULSE 102; RESP 18; TEMP 36.8; O2SAT 97; BMI 31.0
--- NOTE | 2019-01-03 17:07 | NURSING ---
CALLED DR BAEZ AND LEFT MESSAGE FOR HIM TO CALL DR SHEA
--- NOTE | 2019-01-03 17:10 | ED.VISSUMM ---
- ER Visit Summary Date of Service: 01/03/19 Chief Complaint: Status post right ankle debridement sent from [facility] due to redness around the wound and low-grade fever History of Present Illness: The patient is a 53 F history of insulin-dependent diabetes, hypertension, CAD and RI, cardiac stents, edema, Charcot joint, bilateral lower extremity neuropathies. The last 2 weeks patient had a operations developer debrided a wound on her right lateral malleolus and then a second surgery by Dr. sandra Shannon for the same. The wound was cultured and was LIU a positive and was changed from Keflex to currently on doxycycline. Today noticed redness about the wound had a low-grade fever and was sent to the ER. She denies feeling ill. No chills. Physical Examination: Well-appearing middle-age female. No acute distress. Vital signs are stable and afebrile. H EENT exam unremarkable. Neck nontender no lymphadenopathy. Lungs clear to office bilaterally. Heart regular rhythm no murmur. Abdomen soft nontender normal bowel sounds no peritoneal signs. Back nontender. Extremities moves all 4. She has bilateral diabetic feet neuropathies with decreased sensation. She is able to dorsi and plantarflex. She is able to wiggle her toes. She has had small toe amputations bilaterally. The right lateral malleolus has a large circular debridement. There is minimal cellulitis inferior to the wound. Minimal swelling. No calf pain or tenderness. No cords or swelling in the calf. No streaking. She is awake and alert. She has known diabetic neuropathies in her feet. Test Results: CBC shows mildly elevated white count 11.8. Chronic anemia with a hemoglobin 8.9 which is her baseline. Electrolytes unremarkable gap is 6. Glucose is 310 she is diabetic. Creatinine is 1.1. Emergency Department Course and Treatment: Repeat exam patient is doing well at 1747. Wound does not look any different. I did discuss her care with Dr. Taylor and both he and are comfortable her being discharged back to the extended care facility. I reviewed her most recent cultures she recently was changed from Keflex to doxycycline and the wound cultures they did here at the hospital were sensitive to nearly all the antibiotics tested. Treatment Plan: Continue her doxycycline. Follow-up as an outpatient. Disposition: Discharge Impression: Wound check Status post right ankle wound debridement with prior wound infection This note was generated with Dragon dictation software. It may contain incorrect words, spelling, and punctuation that were not noted in review of the chart prior to signing ED Disposition - Plan for ED Patient: Referrals: Raúl Eric MD [Primary Care Provider] -
--- NOTE | 2019-01-03 17:13 | ED.DCSUM_ITS ---
- ER Visit Summary Date of Service: 01/03/19 Chief Complaint: Status post right ankle debridement sent from [facility] due to redness around the wound and low-grade fever History of Present Illness: The patient is a 53 F history of insulin-dependent diabetes, hypertension, CAD and [place], cardiac stents, edema, Charcot joint, bilateral lower extremity neuropathies. The last 2 weeks patient had a wildlife ecologist debrided a wound on her right lateral malleolus and then a second surgery by Dr. sandra Shannon for the same. The wound was cultured and was LIU a positive and was changed from Keflex to currently on doxycycline. Today noticed redness about the wound had a low-grade fever and was sent to the ER. She denies feeling ill. No chills. Physical Examination: Well-appearing middle-age female. No acute distress. Vital signs are stable and afebrile. H EENT exam unremarkable. Neck nontender no lymphadenopathy. Lungs clear to office bilaterally. Heart regular rhythm no murmur. Abdomen soft nontender normal bowel sounds no peritoneal signs. Back nontender. Extremities moves all 4. She has bilateral diabetic feet neuropathies with decreased sensation. She is able to dorsi and plantarflex. She is able to wiggle her toes. She has had small toe amputations bilaterally. The right lateral malleolus has a large circular debridement. There is minimal cellulitis inferior to the wound. Minimal swelling. No calf pain or tenderness. No cords or swelling in the calf. No streaking. She is awake and alert. She has known diabetic neuropathies in her feet. Test Results: CBC shows mildly elevated white count 11.8. Chronic anemia with a hemoglobin 8.9 which is her baseline. Electrolytes unremarkable gap is 6. Glucose is 310 she is diabetic. Creatinine is 1.1. Emergency Department Course and Treatment: Repeat exam patient is doing well at 1747. Wound does not look any different. I did discuss her care with Dr. Taylor and both he and are comfortable her being discharged back to the extended care facility. I reviewed her most recent cultures she recently was changed from Keflex to doxycycline and the wound cultures they did here at the hospital were sensitive to nearly all the antibiotics tested. Treatment Plan: Continue her doxycycline. Follow-up as an outpatient. Disposition: Discharge Impression: Wound check Status post right ankle wound debridement with prior wound infection This note was generated with Dragon dictation software. It may contain incorrect words, spelling, and punctuation that were not noted in review of the chart prior to signing ED Disposition - Plan for ED Patient: Referrals: Raúl Eric MD [Primary Care Provider] -
[2019-01-03 17:29] LABS: Absolute Lymphocyte Count 2.19 X10^3/ul (0.83-4.51); Absolute Neutrophil Count 8.7 X10^3/uL (2.0-7.7); Basophil# 0.04 X10^3/uL; Basophil% 0.3 % (0-1); Eosinophil# 0.21 X10^3/uL; Eosinophils% 1.8 % (0-5); Hematocrit 28.2 % (37-47); Hemoglobin 8.9 g/dl (12.0-15.0); Lymphocyte # 2.19 X10^3/ul (4.0); Lymphocyte % 18.5 % (19-41); Mean Corp Hgb Conc 31.6 g/gl (32-36); Mean Corpuscular Hgb 26.5 pg (27.0-32.0); Mean Corpuscular Volume 83.9 fL (81-99); Mean Platelet Vol. 9.8 fl (6.2-12.0); Monocyte# 0.67 X10^3/uL; Monocyte% 5.7 % (0-10); Neutrophil # 8.68 X10^3/uL (2.7-7.7); Neutrophil % 73.5 % (47-70); POSITIVE COUNT NO; POSITIVE DIFFERENTIAL NO; POSITIVE MORPHOLOGY NO; Platelet Count 411 K/mm3 (150-450); RBC Distribution Width CV 14.9 % (11.6-14.6); RBC Distribution Width SD 45.7 fl (35.1-43.9); Red Blood Count 3.36 M/mm3 (4.2-5.4); White Blood Count 11.8 K/mm3 (4.4-11.0)
[2019-01-03 17:41] LABS: Anion Gap 6 (5-15); BUN 31 mg/dL (7-18); BUN/Creat Ratio 27.4 RATIO (10-20); Calcium,Total 8.3 mg/dL (8.5-10.1); Chloride 100 mmol/L (98-107); Creatinine, Serum 1.13 mg/dL (0.55-1.02); EST Glomerular Filtration Rate 53 mL/min (>60); Est Glom Filt Rate - Afr Amer 65 mL/min (>60); Glucose 310 mg/dL (74-106); Potassium 4.4 mmol/L (3.5-5.1); Sodium Level 134 mmol/L (136-145)
--- NOTE | 2019-01-03 17:50 | ED.DEP ---
ED Disposition - Plan for ED Patient: Disposition: Home or Assisted Living Referrals: Shayne Taylor MD [STAFF PHYSICIAN] - Keep Kate appointment Additional Instructions: Continue her current antibiotics which should be doxycycline as I discussed this with Dr. Shayne Taylor. Follow-up with him as scheduled.
--- NOTE | 2019-01-03 18:09 | NURSING ---
CALLED [facility] FOR TRANSPORT
--- NOTE | 2019-01-03 18:10 | NURSING ---
ETA 30 MIN
--- NOTE | 2019-01-03 18:14 | ED.RN ---
RLE OPEN WOUND WAS PACKED WITH 4X4 WET TO DRY DRESSING AND COVERED WITH 4X4 AND SECURED WITH JAYME AND TAPE. PT TOLERATED WELL.
== END 2019-01-03 18:45 | disposition home or self-care (01) ==
PROVIDERS: Emergency Provider Emergency Medicine; Family Provider Family Medicine; PCP Family Medicine
DX: L03.115 Cellulitis of right lower limb (principal); I25.10 Atherosclerotic heart disease of native coronary artery without angina pectoris; E11.40 Type 2 diabetes mellitus with diabetic neuropathy, unspecified; I10 Essential (primary) hypertension; M14.60 Charcot's joint, unspecified site; I25.2 Old myocardial infarction; Z79.02 Long term (current) use of antithrombotics/antiplatelets; Z79.4 Long term (current) use of insulin; Z79.891 Long term (current) use of opiate analgesic; Z79.899 Other long term (current) drug therapy; Z89.422 Acquired absence of other left toe(s); Z89.421 Acquired absence of other right toe(s); Z95.5 Presence of coronary angioplasty implant and graft
CPT/HCPCS: 80048; 85025; 99285

== ENCOUNTER 2019-01-04 12:54 | Emergency (ER) | payer MEDICARE, MEDICAID, SELFPAY ==
[2018-09-21 13:23] VITALS: BMI 29.3
[2019-01-03 16:44] VITALS: BMI 31.0
[2019-01-04 12:55] VITALS: BP 126/69; PULSE 96; RESP 17; TEMP 36.7; O2SAT 98; BMI 29.0
[2019-01-04 13:02] VITALS: BP 126/69; PULSE 95; RESP 16; O2SAT 98
--- NOTE | 2019-01-04 13:08 | EKG12_ITS ---
Test Reason : HYPERGLYCEMIA Blood Pressure : / mmHG Vent. Rate : 090 BPM Atrial Rate : 090 BPM P-R Int : 146 ms QRS Dur : 076 ms QT Int : 388 ms P-R-T Axes : 045 023 012 degrees QTc Int : 474 ms Normal sinus rhythm Septal infarct (cited on or before 21-DEC-2018), age undetermined Abnormal ECG Confirmed by ELEN DELVALLE, FELTON ([id number]), graphic editor HARINI PHAM ([id number]) on 01/08/2019 1:59:50 PM Referred By: NANDA Confirmed By:FELTON MYRICK MD
[2019-01-04 13:20] LABS: Bedside Glucose 459 mg/dL (70-110)
--- NOTE | 2019-01-04 13:30 | CM.ED ---
Social Work Assessment Referral Date: 01/04/19 Date of Assessment: 01/04/19 Informant: DR. JERNIGAN Reason for Consult: DISCHARGE PLANNING Information obtained from: PATIENT AND STAFF AT [facility], ANDREW AND NIKKI Living Arrangements: PATIENT CURRENTLY RESIDES AT [facility] Employment/Financial: DISABLED Supports: PATIENT REPORTS GOOD SUPPORT FROM FAMILY. Social/Family Stressors: PATIENT STATES CONCERNED NURSING STAFF IS NOT GIVING HER ENOUGH INSULIN. NURSING STAFF AT [facility] REPORT PATIENT IS NON COMPLIANT WITH DIET AND MEDICATIONS. Mental Health History: PATIENT REPORTS HX OF ANXIETY AND DEPRESSION AND IS PRESCRIBED MEDICATION. Substance Abuse History: PATIENT DENIES ANY HX OF SUBSTANCE ABUSE. Interventions: SOCIAL SERVICE ASSESSMENT DISCUSSION ON PLAN OF CARE WITH NURSING STAFF AT [facility] Assessment: PATIENT IS A 53 Y/O FEMALE WHO PRESENTS TO ED FROM [facility] FOR HYPERGLYCEMIA. THIS WORKER RECEIVED PHONE CALLS FROM BOTH NIKKI AND ANDREW FROM [facility] REGARDING CONCERNS AND ISSUES WITH PATIENT. BOTH VOICE PATIENT WITH HX OF NON COMPLIANCE. DISCUSSED WITH THE STAFF SAFE AND APPROPRIATE D/C PLANNING. PATIENT TO RETURN TO [facility] FOR APPROPRIATE D/C PLANNING AND FOLLOW UP. PATIENT IN AGREEMENT. CASE CONFERENCE WITH DR. JERNIGAN WHO IS IN AGREEMENT WITH PLAN. PLAN: PATIENT TO RETURN TO [facility] FOR CONTINUATION OF CARE AND D/C PLANNING.
[2019-01-04] MEDS: 0.9% Normal Saline 1,000 ML 1000 ML IV (14:07)
[2019-01-04 14:13] LABS: Bacteria 0 SEEN /hpf (None Seen); Mucous, Urine 0 SEEN /hpf (<or=2+); Squamous Epithelial Cells - UA 0 SEEN /hpf (5-10); White Blood Cells 0 SEEN /hpf (0-5)
[2019-01-04 14:18] LABS: Absolute Lymphocyte Count 1.51 X10^3/ul (0.83-4.51); Absolute Neutrophil Count 8.1 X10^3/uL (2.0-7.7); Basophil# 0.05 X10^3/uL; Basophil% 0.5 % (0-1); Eosinophil# 0.16 X10^3/uL; Eosinophils% 1.5 % (0-5); Lymphocyte # 1.51 X10^3/ul (4.0); Lymphocyte % 14.4 % (19-41); Mean Corpuscular Hgb 26.4 pg (27.0-32.0); Mean Platelet Vol. 10.3 fl (6.2-12.0); Monocyte# 0.64 X10^3/uL; Monocyte% 6.1 % (0-10); Neutrophil # 8.13 X10^3/uL (2.7-7.7); Neutrophil % 77.2 % (47-70); POSITIVE COUNT NO; POSITIVE DIFFERENTIAL NO; POSITIVE MORPHOLOGY NO; Platelet Count 534 K/mm3 (150-450); RBC Distribution Width CV 15.1 % (11.6-14.6); RBC Distribution Width SD 46.7 fl (35.1-43.9); Red Blood Count 3.41 M/mm3 (4.2-5.4); White Blood Count 10.5 K/mm3 (4.4-11.0)
[2019-01-04 14:19] LABS: Anion Gap 3 (5-15); BUN 24 mg/dL (7-18); Calcium,Total 8.6 mg/dL (8.5-10.1); Chloride 103 mmol/L (98-107); Creatinine, Serum 1.33 mg/dL (0.55-1.02); EST Glomerular Filtration Rate 44 mL/min (>60); Est Glom Filt Rate - Afr Amer 54 mL/min (>60); Estimated Creatinine Clearance 45.79 ml/min; Glucose 414 mg/dL (74-106); Potassium 4.8 mmol/L (3.5-5.1); Sodium Level 136 mmol/L (136-145)
[2019-01-04 14:22] LABS: Glucose, Dipstick 1000 mg/dl (Normal); Ketone-Dipstick Negative (Negative); Leukocyte Esterase-Dipstick 25 /ul (Negative); Nitrite-Dipstick Negative (Negative); Occult Blood-Urine 250 /ul (Negative); Protein-Dipstick 30 mg/dl (Negative); Urine Bilirubin Dipstick Negative (Negative); Urine Clarity Sl. Cloudy (Clear); Urine Urobilinogen Normal (Normal)
[2019-01-04 14:25] LABS: Color, Urine SEE COMMENT BELOW (Yellow)
[2019-01-04 14:28] LABS: Red Blood Cells-Urine > 100 SEEN /hpf (0-5)
[2019-01-04 14:57] VITALS: BP 142/67; PULSE 98; RESP 16; TEMP 36.7; O2SAT 98
[2019-01-04 15:06] VITALS: BP 140/74; PULSE 90; RESP 18; O2SAT 97
--- NOTE | 2019-01-04 15:25 | ED.DCSUM_ITS ---
History of Present Illness Chief Complaint: Hyperglycemia Detail of Chief Complaint: halfway staff states patient noncompliant, patient accuses nursing sta Informant: Patient, SNF Context: Gradual Onset - Idea Devin Lincoln is wondering if my Quality: Many vague complaints Current Severity: - - Unable to determine Maximum Severity: - - Unknown Worsened by: Noncompliance by patient Relieved by: Nothing Associated Symptoms: Polyuria, polydipsia, nocturia and blurred vision Narrative: Patient is a middle-aged woman with history of insulin-dependent diabetes who was sent to the ER for evaluation because of elevated blood sugars. Per documentation patient noncompliant. Patient is accusatory that staff is not caring for her properly. Patient symptoms are consistent with hyperglycemia. Prior similar symptoms: Yes Recent Illness/Hospitalization: Yes - Past Medical History (1) Abscess of right lower leg Status: Acute Comment: diabetic ulcer abscess right lateral malleolus (2) Hemoglobin A1c greater than 9.0% Status: Acute Comment: 12.2 (3) Intractable nausea and vomiting Status: Acute (4) Wound of foot Status: Acute (5) Anxiety state Status: Chronic (6) Back pain, chronic Status: Chronic (7) CAD (coronary artery disease) Status: Chronic (8) Depression Status: Chronic (9) GERD (gastroesophageal reflux disease) Status: Chronic (10) HLD (hyperlipidemia) Status: Chronic (11) HTN (hypertension) Status: Chronic (12) Neuropathic pain Status: Chronic (13) RLS (restless legs syndrome) Status: Chronic (14) NSTEMI (non-ST elevated myocardial infarction) Status: Resolved (15) Osteomyelitis Status: Resolved Past Medical History - Allergies and Home Meds Allergies/Adverse Reactions: Allergies Penicillins Allergy (Verified 01/04/19 13:01) Shortness of breath metronidazole Adverse Reaction (Verified 01/04/19 13:01) Nausea OXYCONTIN Allergy (Uncoded 01/04/19 13:01) Shortness of breath Primary Care Physician: Raúl Eric MD [Primary Care Provider] - Prior records reviewed: Yes Surgical History: - - Severel R foot toe amputations and I+Ds, BL carpal tunnel surgery 1994, right shoulder surgery in 1994, section x2, most recently LLE I+D. Lives: Alone - I am doing well, Longterm Smoking Status: Never smoker Alcohol: None - Family History Maternal Family History: Reports: Cancer - Patient had a brother who had testicular cancer; and later cancer in his stomach., Diabetes, Hypertension, - - Her mother at the age of 67 to a blood clot to the brain. She had had multiple strokes preceding that. Patient had 3 brothers who had bypass surgery in their 50s. Paternal Family History: Reports: - - Patient states her father when she was 5 years old, denies known medical history, denies known cardiac history. Sibling Family History: Reports: - - She has one brother who is secondary to cancer and she does not know what kind of cancer he had. She also has 3 brothers with a history of cardiovascular disease, stents and coronary artery bypass grafting. Review of Systems General: Denies: Chills, Fever, Sweats Eyes: Denies: Visual changes - bilaterally, Diplopia ENT: Denies: Bilateral ear pain, Rhinorrhea, Sore throat Cardiovascular: Denies: Chest pain, Palpitations Respiratory: Denies: Dyspnea, Cough, Dyspnea on exertion Gastrointestinal: Denies: Abdominal pain, Nausea, Vomiting, Diarrhea, Melena, Hematochezia Genitourinary: Reports: Frequency Musculoskeletal: Reports: Myalgias, Arthralgias Skin: Reports: Wounds - Wound VAC noted and functioning Neurological: Denies: Headache, Weakness, Numbness Endocrine: Reports: Polyuria, Polydipsia, - Physical Exam Vital Signs/Narrative: Vital Signs Temp Pulse Resp BP Pulse Ox 01/04/19 15:06 90 18 140/74 H 97 01/04/19 14:57 98.0 F 98 16 142/67 H 98 01/04/19 13:02 95 16 126/69 H 98 01/04/19 12:55 98.1 F 96 17 126/69 H 98 Inital Vital Signs reviewed: Yes General: Well nourished, Well developed, Unkempt Head: Normocephalic, Atraumatic Eyes: Perrl, EOMI ENT: Moist mucous membranes, No rhinorrhea Neck: Supple, Nontender Cardiovascular: Regular rate, Regular rhythm, No murmurs Respiratory: No distress, CTA bilaterally, Chest nontender Abdomen: Soft, Nontender, Nondistended, Normal bowel sounds, No masses Back: Nontender, Normal Inspection Skin: No rash, Pallor Neurological: Alert, Oriented x3, Cranial nerves II-XII grossly intact, Normal Strength, Normal Sensation Psychological: Normal affect, Normal Mood Diagnostic/Tx/Re-eval Laboratory Results 01/04/19 01/04/19 01/04/19 13:15 13:55 13:55 WBC 10.5 RBC 3.41 L Hgb 9.0 L Hct 29.0 L MCV 85.0 MCH 26.4 L MCHC 31.0 L RDW 15.1 H RDW Differential 46.7 H Plt Count 534 H MPV 10.3 Immature Gran % (Auto) 0.300 Neut % (Auto) 77.2 H Lymph % (Auto) 14.4 L [place] % (Auto) 6.1 Eos % (Auto) 1.5 Baso % (Auto) 0.5 Absolute Neuts (auto) 8.1 H Absolute Lymphs (auto) 1.51 Total Counted Not Reportable Sodium 136 Potassium 4.8 Chloride 103 Carbon Dioxide 30.0 Anion Gap 3 L BUN 24 H Creatinine 1.33 H Estim Creat Clear Calc 45.79 Est GFR (MDRD) Af Amer 54 L Est GFR (MDRD) Non-Af 44 L BUN/Creatinine Ratio 18.0 Glucose 414 H Calcium 8.6 Urine Color Urine Clarity Urine pH Ur Specific [place] Urine Protein Urine Glucose (UA) Urine Ketones Urine Occult Blood Urine Nitrite Urine Bilirubin Urine Urobilinogen Ur Leukocyte Esterase Urine RBC Urine WBC Ur Squamous Epith Cells Urine Bacteria Urine Mucus POC Glucose 459 H* 01/04/19 14:10 WBC RBC Hgb Hct MCV MCH MCHC RDW RDW Differential Plt Count MPV Immature Gran % (Auto) Neut % (Auto) Lymph % (Auto) [place] % (Auto) Eos % (Auto) Baso % (Auto) Absolute Neuts (auto) Absolute Lymphs (auto) Total Counted Sodium Potassium Chloride Carbon Dioxide Anion Gap BUN Creatinine Estim Creat Clear Calc Est GFR (MDRD) Af Amer Est GFR (MDRD) Non-Af BUN/Creatinine Ratio Glucose Calcium Urine Color SEE COMMENT BELOW Urine Clarity Sl. Cloudy Urine pH 6.0 Ur Specific [place] 1.010 Urine Protein 30 H Urine Glucose (UA) 1000 H Urine Ketones Negative Urine Occult Blood 250 H Urine Nitrite Negative Urine Bilirubin Negative Urine Urobilinogen Normal Ur Leukocyte Esterase 25 H Urine RBC > 100 SEEN Urine WBC 0 SEEN Ur Squamous Epith Cells 0 SEEN Urine Bacteria 0 SEEN Urine Mucus 0 SEEN POC Glucose - Medical Decision Making IV fluids and subcu insulin for hyperglycemia. She has chronic anemia. CO2 and anion gap are normal. No change in renal function. To assess patient's complaints a basic minimal panel was obtained to assess glucose, CO2 and anion gap. Also determine if she had likely FMLA since there is history of such. CBC was obtained to assess white count as well as H&H and she appears pale. ready to wear department manager was consult because of possible placement issues. ED Disposition - Plan for ED Patient: Disposition: Home or Assisted Living Diagnosis: Hyperglycemia due to type 2 diabetes mellitus, Abscess of right lower leg, Back pain, chronic, CAD (coronary artery disease), Depression, Anxiety state, GERD (gastroesophageal reflux disease), HLD (hyperlipidemia), HTN (hypertension), Neuropathic pain, Type II diabetes mellitus, uncontrolled Instructions: ED Hyperglycemia Diabetic Referrals: Raúl Eric MD [Primary Care Provider] - As Needed
--- NOTE | 2019-01-04 15:54 | NURSING ---
CALLED [facility] FOR WHEELCHAIR TRANSPORT. ETA IS 1.5 HRS.
[2019-01-04] MEDS: Insulin Lispro 100 UNIT/ML INSULN.PEN 8 UNIT SC (16:09)
[2019-01-04 16:17] VITALS: BP 128/91; PULSE 90; RESP 17
--- NOTE | 2019-01-04 16:18 | ED.RN ---
IV DC'ED, CATHETER INTACT, SMALLL GAUZE DRESSING PLACED. PT BEGAN BLEEDING THROUGH DRESSING. DRESSING REMOVED, PRESSURE HELD, NEW DRESSING PLACED AND SECURED WITH GAUZE. DISCHARGE INSTRUCTIONS GIVEN TO AND REVIEWED WITH PATIENT, PATIENT DENIES QUESTIONS OR CONCERNS AND VOICES UNDERSTANDING OF DISCHARGE INSTRUCTIONS. PT TO PRIVATE VEHICLE VIA WHEELCHAIR.
== END 2019-01-04 16:19 | disposition home or self-care (01) ==
PROVIDERS: Emergency Provider Emergency Medicine; Family Provider Family Medicine; PCP Family Medicine
DX: E11.65 Type 2 diabetes mellitus with hyperglycemia (principal); Z91.19 Patient's noncompliance with other medical treatment and regimen; E11.622 Type 2 diabetes mellitus with other skin ulcer; L97.319 Non-pressure chronic ulcer of right ankle with unspecified severity; L02.415 Cutaneous abscess of right lower limb; E11.40 Type 2 diabetes mellitus with diabetic neuropathy, unspecified; R11.2 Nausea with vomiting, unspecified; I25.10 Atherosclerotic heart disease of native coronary artery without angina pectoris; E78.5 Hyperlipidemia, unspecified; G25.81 Restless legs syndrome; M54.9 Dorsalgia, unspecified; G89.29 Other chronic pain; D64.9 Anemia, unspecified; K21.9 Gastro-esophageal reflux disease without esophagitis; F32.9 Major depressive disorder, single episode, unspecified; F41.9 Anxiety disorder, unspecified; I25.2 Old myocardial infarction; Z79.02 Long term (current) use of antithrombotics/antiplatelets; Z79.4 Long term (current) use of insulin; Z79.891 Long term (current) use of opiate analgesic; Z79.899 Other long term (current) drug therapy
CPT/HCPCS: 80048; 81001; 82962; 85025; 93005; 96360; 96361; 99285; J7030

== ENCOUNTER 2019-01-06 02:13 | Emergency (ER) | payer MEDICARE, MEDICAID, SELFPAY ==
[2018-09-21 13:23] VITALS: BMI 29.3
[2019-01-06 02:14] VITALS: BP 116/59; PULSE 94; RESP 18; TEMP 36.7; O2SAT 96; BMI 30.2
--- NOTE | 2019-01-06 02:35 | ED.DCSUM_ITS ---
- ER Visit Summary Date of Service: 01/06/19 Chief Complaint: Leg and feet pain History of Present Illness: The patient is a 53 F who presents with neuropathy. She has a history of diabetic neuropathy. Her pain is similar to the pain that she has had with neuropathy but more severe. She complains of burning pain in her feet and aching pain in her legs. She is on gabapentin 3 times a day. She was also given oxycodone at the nursing facility. Her pain remained uncontrolled so she was sent here. She denies any fever chest pain shortness of breath nausea vomiting. She does have some diarrhea. She was recently hospitalized for an abscess at the right ankle that underwent incision and drainage by podiatry and then wound VAC by plastics. She grew out MSSA. He has been getting dressings to feet for wounds. Physical Examination: Afebrile vitals normal Patient appears uncomfortable crying and kicking her legs Heart is regular rate and rhythm Lungs are clear Abdomen soft Examination of the extremities shows a wound VAC over the right ankle there is edema of the right lower extremity there is no edema of the left lower extremity patient has no calf tenderness she has easily palpable and symmetric dorsalis pedis pulses with brisk capillary refill. She has severely diminished sensation which is chronic the wound on the left foot is clean and dry no erythema no drainage. Test Results: Labs notable for hemoglobin 7.7, hematocrit 25.1. BUN 35, creatinine 1.25. CPK normal. Emergency Department Course and Treatment: Patient was symptomatically treated here with IV morphine and IV Zofran. She reports improvement but not resolution of her pain. Of note her oxycodone was reduced 2 days ago when her symptoms began. She was decreased from oxycodone 5 mg 3 times a day down to oxycodone 5 mg 2 times a day. I believe this is most likely why she is having increased pain. She has no evidence of serious process such as ischemia. He was advised to have her hemoglobin rechecked. She does have anemia and was recently ill as low as 8.1 while hospitalized. I do not believe this is directly related to her current symptoms. She will be discharged back to her nursing facility.. She understands to return for new or worsening symptoms. She is agreeable to this plan. Treatment Plan: [] Disposition: Discharge Impression: Neuropathy This note was generated with [employer] dictation software. It may contain incorrect words, spelling, and punctuation that were not noted in review of the chart prior to signing ED Disposition - Plan for ED Patient: Referrals: Raúl Eric MD [Primary Care Provider] -
[2019-01-06] MEDS: Ondansetron 4 MG/2 ML Vial IV (02:39)
[2019-01-06] MEDS: Morphine 4 MG/ML Syringe IV (02:39)
[2019-01-06 02:54] LABS: Absolute Lymphocyte Count 2.35 X10^3/ul (0.83-4.51); Absolute Neutrophil Count 6.8 X10^3/uL (2.0-7.7); Basophil# 0.07 X10^3/uL; Basophil% 0.7 % (0-1); Eosinophil# 0.28 X10^3/uL; Eosinophils% 2.7 % (0-5); Hematocrit 25.1 % (37-47); Hemoglobin 7.7 g/dl (12.0-15.0); Lymphocyte # 2.35 X10^3/ul (4.0); Lymphocyte % 22.9 % (19-41); Mean Corp Hgb Conc 30.7 g/gl (32-36); Mean Corpuscular Hgb 25.9 pg (27.0-32.0); Mean Corpuscular Volume 84.5 fL (81-99); Mean Platelet Vol. 9.8 fl (6.2-12.0); Monocyte# 0.74 X10^3/uL; Monocyte% 7.2 % (0-10); Neutrophil # 6.78 X10^3/uL (2.7-7.7); Neutrophil % 66.3 % (47-70); POSITIVE COUNT NO; POSITIVE DIFFERENTIAL NO; POSITIVE MORPHOLOGY NO; Platelet Count 511 K/mm3 (150-450); RBC Distribution Width CV 15.3 % (11.6-14.6); RBC Distribution Width SD 47.2 fl (35.1-43.9); Red Blood Count 2.97 M/mm3 (4.2-5.4); White Blood Count 10.2 K/mm3 (4.4-11.0)
[2019-01-06 03:02] LABS: Anion Gap 4 (5-15); BUN 35 mg/dL (7-18); CPK Total, Creatine Kinase 57 U/L (26-192); Calcium,Total 8.5 mg/dL (8.5-10.1); Chloride 106 mmol/L (98-107); Creatinine, Serum 1.25 mg/dL (0.55-1.02); EST Glomerular Filtration Rate 48 mL/min (>60); Est Glom Filt Rate - Afr Amer 58 mL/min (>60); Estimated Creatinine Clearance 48.72 ml/min; Glucose 254 mg/dL (74-106); Potassium 4.6 mmol/L (3.5-5.1); Sodium Level 137 mmol/L (136-145)
--- NOTE | 2019-01-06 03:24 | ED.DEP ---
ED Disposition - Plan for ED Patient: Instructions: ED Neuropathy Peripheral Referrals: Raúl Eric MD [Primary Care Provider] -
--- NOTE | 2019-01-06 03:59 | ED.RN ---
I CALLED ELENI AT [facility] TO GIVE REPORT FOR PATIENT TO RETURN TO [facility].
[2019-01-06 04:04] VITALS: BP 91/78; PULSE 97; RESP 18; O2SAT 98
--- NOTE | 2019-01-06 04:23 | ED.RN ---
BILATERAL FEET WRAPPED WITH MYLA WRAPS. DR. JAVIER MADE AWARE OF BP OF 91/70. AWAITING [facility] TO TAKE HER BACK TO [facility].
== END 2019-01-06 04:44 | disposition home or self-care (01) ==
PROVIDERS: Emergency Provider Emergency Medicine; Family Provider Family Medicine; PCP Family Medicine
DX: E11.40 Type 2 diabetes mellitus with diabetic neuropathy, unspecified (principal); I10 Essential (primary) hypertension; I25.10 Atherosclerotic heart disease of native coronary artery without angina pectoris; D64.9 Anemia, unspecified; R19.7 Diarrhea, unspecified; K21.9 Gastro-esophageal reflux disease without esophagitis; Z72.0 Tobacco use; Z79.02 Long term (current) use of antithrombotics/antiplatelets; Z79.4 Long term (current) use of insulin; Z79.891 Long term (current) use of opiate analgesic; Z79.899 Other long term (current) drug therapy
CPT/HCPCS: 80048; 82550; 85025; 96374; 96375; 99285; A4216; J2405

== ENCOUNTER 2019-01-09 07:04 | Emergency (ER) | payer MEDICAID, SELFPAY ==
[2018-09-21 13:23] VITALS: BMI 29.3
[2019-01-09 07:05] VITALS: BP 136/66; PULSE 89; RESP 18; TEMP 36.7; O2SAT 99; BMI 29.2
--- NOTE | 2019-01-09 07:29 | ED.VISSUMM ---
- ER Visit Summary Date of Service: 01/09/19 Chief Complaint: Right ankle pain History of Present Illness: The patient is a 53 F with right ankle pain. The patient has a history of a right ankle wound and follows with Dr. Taylor. She has a wound vac and is currently a resident at [facility]. She had increasing pain last night. She has a great deal of pain and takes oxycodone, but last night her pain was so severe that she could not sleep. She received an oxycodone around 3 AM but had continued pain. No other new or associated symptoms. Physical Examination: Afebrile and vital signs are completely normal. Patient is tearful. Inspection shows a wound VAC in place. Surrounding skin is normal in color and not warm. I do not appreciate any bleeding or drainage. No edema or swelling noted. Calf soft and supple. Neurovascularly intact distally. Test Results: None performed Emergency Department Course and Treatment: After discussion and examination, it sounds like the patient's pain was not under control. She had labs on January 06. I see no evidence on exam or in her history of a worsening or new process, rather I think she needs pain control. I did notify Dr. Mojica. He believed this sounded reasonable. Patient received 1 dose of Dilaudid subcutaneous. On reevaluation, patient is much more comfortable. I believe she is appropriate for management at [facility] and does not need any further treatment here or any kind of diagnostic testing. All questions were answered. Patient was transferred back to her facility. Treatment Plan: As above Disposition: Discharge Impression: 1. Right ankle pain This note was generated with [employer] dictation software. It may contain incorrect words, spelling, and punctuation that were not noted in review of the chart prior to signing ED Disposition - Plan for ED Patient: Referrals: Raúl Eric MD [Primary Care Provider] -
--- NOTE | 2019-01-09 07:33 | ED.DEP ---
ED Disposition - Plan for ED Patient: Instructions: Understanding Chronic Pain Referrals: Shayne Taylor MD [STAFF PHYSICIAN] -
[2019-01-09] MEDS: HYDROmorphone 1 MG/ML Syringe SC (07:34)
== END 2019-01-09 08:34 | disposition home or self-care (01) ==
PROVIDERS: Emergency Provider Emergency Medicine; Family Provider Family Medicine; PCP Family Medicine
DX: M25.571 Pain in right ankle and joints of right foot (principal); I25.10 Atherosclerotic heart disease of native coronary artery without angina pectoris; E11.9 Type 2 diabetes mellitus without complications; I10 Essential (primary) hypertension; G25.81 Restless legs syndrome; K21.9 Gastro-esophageal reflux disease without esophagitis; F32.9 Major depressive disorder, single episode, unspecified; F41.9 Anxiety disorder, unspecified; Z79.02 Long term (current) use of antithrombotics/antiplatelets; Z79.4 Long term (current) use of insulin; Z79.891 Long term (current) use of opiate analgesic; Z79.899 Other long term (current) drug therapy; Z87.39 Personal history of other diseases of the musculoskeletal system and connective tissue
CPT/HCPCS: 96372; 99284

== ENCOUNTER 2019-01-09 17:33 | Emergency (ER) | payer MEDICARE, MEDICAID, SELFPAY ==
[2018-09-21 13:23] VITALS: BMI 29.3
[2019-01-09 07:05] VITALS: BMI 29.2
[2019-01-09 17:33] VITALS: BP 124/71; PULSE 100; RESP 18; O2SAT 97
[2019-01-09 17:34] VITALS: BP 124/71; PULSE 101; RESP 18; TEMP 36.6; O2SAT 97; BMI 29.0
--- NOTE | 2019-01-09 18:39 | ED.DCSUM_ITS ---
- ER Visit Summary Date of Service: 01/09/19 Chief Complaint: Low hemoglobin and right ankle wound History of Present Illness: The patient is a 53 F sent in from [facility]. Patient reports vaginal bleeding for the past 2 weeks. She had blood work today which revealed hemoglobin of 6.7 down from 7.7 on January 06. She was sent from the [facility] for a blood transfusion after they could not get a hold of the patient's doctor. Patient is scheduled for a blood transfusion as an outpatient tomorrow morning. Patient also complains of chronic right ankle wound and is requesting pain medication. She was already seen in the ER once for this today. She is on oxycodone regularly. She had a wound VAC on her right ankle that was removed prior to transport tonight. Physical Examination: Vital signs unremarkable. Patient standing at bedside in no acute distress. Head neck examination normal. Heart is regular rate and rhythm. Lung sounds are clear. Abdomen is soft and nontender. Extremity examination reveals her right ankle and foot to be wrapped in gauze. Test Results: I did review labs from the [facility]. Emergency Department Course and Treatment: At this time patient's vital signs are stable. They have an order for blood transfusion to be given tomorrow morning as an outpatient. There is no indication that it needs to be done emergently tonight. Patient is requesting something for pain for her ankle. She was observed by nursing staff standing on her bad ankle and shaking her good leg without difficulty. I observed her putting a pair of socks on over her right ankle dressing without sign of pain or discomfort. Patient will not be given additional pain medication in the emergency room. I spoke with Dr. Woody, on-call for the patient's primary care physician. He agrees the patient does not need an emergent blood transfusion tonight. Patient will be discharged back to [facility] and can return tomorrow for her scheduled blood transfusion. Treatment Plan: [] Disposition: Discharge Impression: 1. Anemia with scheduled blood transfusion pending 2. Chronic right ankle wound This note was generated with [employer] software. It may contain incorrect words, spelling, and punctuation that were not noted in review of the chart prior to signing ED Disposition - Plan for ED Patient: Disposition: Home or Assisted Living Instructions: ED Anemia Type Not Specified Referrals: Raúl Eric MD [Primary Care Provider] - Additional Instructions: Follow-up tomorrow for blood transfusion as scheduled.
[2019-01-09 18:43] VITALS: BP 128/79; PULSE 84; RESP 16; O2SAT 97
--- NOTE | 2019-01-09 18:44 | ED.RN ---
REPORT CALLED TO GABRIELLE IGLESIAS AT [facility]
== END 2019-01-09 19:09 | disposition home or self-care (01) ==
PROVIDERS: Emergency Provider Emergency Medicine; Family Provider Family Medicine; PCP Family Medicine
DX: N93.9 Abnormal uterine and vaginal bleeding, unspecified (principal); D64.9 Anemia, unspecified; S91.001A Unspecified open wound, right ankle, initial encounter; X58.XXXA Exposure to other specified factors, initial encounter; Y93.9 Activity, unspecified; Y92.9 Unspecified place or not applicable; Y99.9 Unspecified external cause status; M25.571 Pain in right ankle and joints of right foot; I25.10 Atherosclerotic heart disease of native coronary artery without angina pectoris; E11.9 Type 2 diabetes mellitus without complications; I10 Essential (primary) hypertension; G25.81 Restless legs syndrome; K21.9 Gastro-esophageal reflux disease without esophagitis; F32.9 Major depressive disorder, single episode, unspecified; F41.9 Anxiety disorder, unspecified; Z79.02 Long term (current) use of antithrombotics/antiplatelets; Z79.4 Long term (current) use of insulin; Z79.891 Long term (current) use of opiate analgesic; Z79.899 Other long term (current) drug therapy; I25.2 Old myocardial infarction; Z95.5 Presence of coronary angioplasty implant and graft; Z86.31 Personal history of diabetic foot ulcer; Z87.39 Personal history of other diseases of the musculoskeletal system and connective tissue
CPT/HCPCS: 96372; 99282; 99284

== ENCOUNTER → 2019-01-12 07:57 | Outpatient (CLI) | payer SELFPAY ==
[2018-09-21 13:23] VITALS: BMI 29.3
[2019-01-09 07:05] VITALS: BMI 29.2
[2019-01-09 17:34] VITALS: BMI 29.0
[2019-01-12] VITALS (7 sets, daily range): BP systolic 112–150; BP diastolic 55–72; PULSE 67–100; RESP 16–18; TEMP 36.1–37.1; O2SAT 91–98; BMI 29.0
[2019-01-12] MEDS: Furosemide 20 MG/2 ML VIAL IV (13:02)
== END ==
PROVIDERS: Family Provider Family Medicine; PCP Family Medicine; Referring Provider Family Medicine; Visit Provider Family Medicine
DX: D64.9 Anemia, unspecified (principal)
CPT/HCPCS: 36430; 86850; 86900; 86920; 86922; J7040; P9016; A4216; J1940

== ENCOUNTER 2019-02-05 10:30 | Outpatient (RCR) | payer MEDICARE, MEDICAID, SELFPAY ==
[2018-09-21 13:23] VITALS: BMI 29.3
[2019-01-12 08:09] VITALS: BMI 29.0
[2019-01-26 09:39] VITALS: BP 145/84; PULSE 94; RESP 18; TEMP 34.3
--- NOTE | 2019-01-26 10:44 | PCM.WC.HP ---
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: with termite control service representative use Qualified Code(s): E11.621 - Type 2 diabetes mellitus with foot ulcer; L97.509 - Non-pressure chronic ulcer of other part of unspecified foot with unspecified severity; Z79.4 - detention (current) use of insulin Code(s): E11.621 - Type 2 diabetes mellitus with foot ulcer; L97.509 - Non-pressure chronic ulcer of other part of unspecified foot with unspecified severity (3) Hemoglobin A1c greater than 9.0% Status: Chronic Current Visit: Yes Code(s): R73.09 - Other abnormal glucose Comment: 12.2 (4) Type II diabetes mellitus, uncontrolled Status: Chronic Current Visit: Yes Qualifiers: Glycemic state: with hyperglycemia Qualified Code(s): E11.65 - Type 2 diabetes mellitus with hyperglycemia Code(s): E11.65 - Type 2 diabetes mellitus with hyperglycemia History of Present Illness Date of Service: 01/26/19 Chief Complaint: Right ankle diabetic ulcer History of Wound: Patient had an I&D of her right lateral ankle infection on 12/22/[address] Allen. She was taken back to surgery on 12/27/[address] Taylor for a surgical preparation right lateral malleoluswith incision and drainage and exicisional debridement necrotizing diabetic ulcer abscess (40 cm2). Her wound cultures from 12/27/18 grew Staphylococcu aureus. She was treated with Unasyn and sent to [place] on Keflex and a wound VAC. On 12/28/18 her prealbumin was 9.1. On 12/21/18 her HgA1C was 12.2%. She now has home health to help with wound VAC changes. She is still seeing Dr. Allen for a diabetic foot ulcer on the plantar surface, lateral aspect of her left foot that srinivas is being applied to daily. Past Medical History Past Medical History: Chronic Problems (Last Reviewed 12/25/18 @ 16:03 by Jamee Sawant PA-C) Hemoglobin A1c greater than 9.0% (Chronic) 12.2 CAD (coronary artery disease) (Chronic) HTN (hypertension) (Chronic) HLD (hyperlipidemia) (Chronic) Neuropathic pain (Chronic) GERD (gastroesophageal reflux disease) (Chronic) Hypomagnesemia (Chronic) Back pain, chronic (Chronic) Depression (Chronic) Diabetic foot ulcer associated with type 2 diabetes mellitus (Chronic) RLS (restless legs syndrome) (Chronic) Type II diabetes mellitus, uncontrolled (Chronic) Anxiety state (Chronic) Surgical History: - - [place] R foot toe amputations and I+Ds, BL carpal tunnel surgery 1994, right shoulder surgery in 1994, section x2, most recently LLE I+D. Allergies/Adverse Reactions: Allergies Penicillins Allergy (Verified 01/09/19 17:35) Shortness of breath metronidazole Adverse Reaction (Verified 01/09/19 17:35) Nausea OXYCONTIN Allergy (Uncoded 01/09/19 17:35) Shortness of breath Home Medications: Ambulatory Orders Medication Instructions Recorded Ascorbic Acid [Vitamin C] 500 mg PO BIDCM 09/20/18 Gabapentin [Neurontin] 800 mg PO TIDCM 09/20/18 Ropinirole HCl [Requip] 3 mg PO BID 09/20/18 Atorvastatin Calcium [Lipitor] 80 mg PO QHS 09/23/18 Lisinopril [Zestril] 5 mg PO DAILY 09/23/18 Metoprolol Tartrate [Lopressor 12.5 mg PO BID 09/23/18 (beta kunal)] escitalopram 10 mg tablet 10 mg PO DAILY 09/28/18 Clopidogrel Bisulfate [Plavix] 75 mg PO DAILY 12/21/18 Metoclopramide [Reglan] 10 mg PO TID PRN #30 tablet 12/29/18 Acetaminophen [Tylenol Tablet] 650 mg PO Q6H PRN PRN 01/04/19 Doxycycline Hyclate 100 mg PO BID 01/04/19 Insulin Glargine,Hum.rec.anlog 40 unit SQ BREAKFAST 01/04/19 [Basaglar Kwikpen U-100] Insulin Lispro [Humalog KwikPen] 5 unit SQ TIDCM 01/04/19 Insulin Lispro [Humalog KwikPen] See Protocol SC TIDCM 01/04/19 Iron Polysaccharide Complex 150 mg PO DAILYCM 01/04/19 [Ferrex 150] Lactobacillus Acidophilus 1 cap PO DAILY 01/04/19 [Acidophilus Lactobacilli] Nutritional Supplement [Ted - 1 packet PO BIDCM 01/04/19 ORANGE FLAVOR] Oxycodone HCl 5 mg PO Q12H PRN PRN 01/04/19 Pantoprazole Sodium [Protonix] 40 mg PO BID 01/04/19 oxycodone-acetaminophen 5 mg-325 1 tab PO 4X/DAY PRN #30 tab 01/24/19 mg tablet - Family History Maternal Cancer - Patient had a brother who had testicular cancer; and later cancer in his stomach., Diabetes, Hypertension, - - Her mother at the age of 67 to a blood clot to the brain. She had had multiple strokes preceding that. Patient had 3 brothers who had bypass surgery in their 50s. Paternal - - Patient states her father when she was 5 years old, denies known medical history, denies known cardiac history. Sibling - - She has one brother who is secondary to cancer and she does not know what kind of cancer he had. She also has 3 brothers with a history of cardiovascular disease, stents and coronary artery bypass grafting. Smoking Status: Never smoker Review of Systems Constitutional: Denies: Chills, Fever, Weight Change Eyes: Denies: Pain, Vision Change HEENT: Denies: Difficulty Hearing, Difficulty Swallowing, Sinus Congestion Cardiovascular: Denies: Chest Pain, Palpitations Respiratory: Denies: Cough, Shortness of Breath Gastrointestinal: Denies: Diarrhea, Nausea, Vomiting Musculoskeletal: Reports: - - right ankle pain and left foot pain Skin: Reports: Wounds - Right lateral malleous ulcer and left plantar foot ulcer Neurological: Reports: Numbness - has diabetic neuropathy bilateral feet. Denies: Balance problems, Slurred speech - Physical Exam Vital Signs Temp Pulse Resp BP 93.7 F L 94 18 145/84 H 01/26/19 09:39 01/26/19 09:39 01/26/19 09:39 01/26/19 09:39 General: Alert, Oriented x3, Cooperative HEENT: Atraumatic Oral: Moist Mucosa Lungs: Clear to auscultation, Normal air movement Cardiovascular: Regular rate, Regular Rhythm Abdomen: Soft, Non Tender Extremities: No edema, Capillary Refill Less than 3 Seconds, No Calf Tenderness, Peripheral Pulses Normal Skin: Ulcer/ Wound - Right lateral malleolus and left foot plantar surface Wound Measurements and Assessment WC - Nurse 1 - General Ulcer Measurement Start: 01/26/19 09:35 Freq: Status: Active Protocol: Activity Type Activity Date Activity User E-Sign Co-Sign Detail Recorded Client Recorded Date Recorded By Document 01/26/19 09:39 DV [id number] 01/26/19 10:28 DV 01/26/19 09:39 Wound Center Nurse 1 [Ulcer Assessment] #5 Left Lateral Plantar -Combined with other wound No -Current Size (cm) - Length 1.3 -Current Size (cm) - Width 0.9 -Current Size (cm) - Depth 0.2 -Total Square Cm 1.17 -Date of Last Picture (Recall this 01/26/19 field) -Photo Taken Yes -Epithelialization None Present -Tunneling No -Undermining/Tunneling No -Circular Undermining No -Classification - Thickness Full Thickness without Exposed Support Structure -Exudate Amt Large -Exudate Type Sanguineous -Wound Margin Flat & Intact -Granulation Amt None Present (0 %) -Granulation Quality N/A -Slough/Fibrin Yes -Necrosis Amt Large (67-100%) -Necrotic Tissue Type Adherent Slough -Structure Exposed None/Limited to Skin Breakdown -Texture (Natacha-wound Skin Appearance) Assessed Scarring -Moisture (Natacha-wound Skin Appearance Assessed ) Weeping -Color (Natacha-wound Skin Appearance) Assessed Erythema -Temperature (Natacha-wound Skin Cool/Cold Appearance) -Tenderness on Palpation (Natacha-wound No Skin Appearance) -Ulcer Cleansing soap -Foul Odor after Cleansing No -Anesthetic Used 4% Lidocaine Solution #4 Right Lateral Malleolus-Post Op -Current Size (cm) - Length 7.5 -Current Size (cm) - Width 6.2 -Current Size (cm) - Depth 0.4 -Total Square Cm 46.50 -Date of Last Picture (Recall this 01/26/19 field) -Photo Taken Yes -Epithelialization None Present -Tunneling No -Undermining/Tunneling No -Circular Undermining No -Exudate Amt Large -Exudate Type Serosanguineous -Wound Margin Flat & Intact -Granulation Amt Large (67-100%) -Granulation Quality Red -Slough/Fibrin Yes -Necrosis Amt Medium (34-66%) -Necrotic Tissue Type Adherent Slough -Structure Exposed N/A -Texture (Natacha-wound Skin Appearance) Assessed Localized Edema Scarring -Moisture (Natacha-wound Skin Appearance Assessed ) Maceration -Color (Natacha-wound Skin Appearance) Assessed Erythema -Temperature (Natacha-wound Skin Cool/Cold Appearance) -Tenderness on Palpation (Natacha-wound Yes Skin Appearance) -Ulcer Cleansing Soap -Foul Odor after Cleansing No -Anesthetic Used 4% Lidocaine Solution WC - Nurse 2 - General Ulcer CM Notes Start: 01/26/19 09:35 Freq: Status: Active Protocol: Activity Type Activity Date Activity User E-Sign Co-Sign Detail Recorded Client Recorded Date Recorded By Document 01/26/19 10:28 DV [id number] 01/26/19 10:33 DV 01/26/19 10:28 Wound Center Nurse 2 [Procedure/Treatment] #5 Left Lateral Plantar -Time 10:30 -Correct Patient Yes -Correct Side, Site, Position Yes -Correct Procedure Yes -Procedure Performed Yes -Type of Procedure Debridement -Clinical Debridement Subcutaneous -Post Debridement Size (cm) - Length 8.5 -Post Debridement Size (cm) - Width 6.0 -Post Debridement Size (cm) - Depth 0.4 -Total Square Cm 51.00 -Wound/Ulcer Outcome Not Healed -Ulcer Cleansing soap -Foul Odor after Cleansing No -Bioengineered Tissue No -Bleeding Controlled with Pressure -Offloading No -Treatment Response Procedure Tolerated Well #4 Right Lateral Malleolus-Post Op -Time 10:30 -Correct Patient Yes -Correct Side, Site, Position Yes -Correct Procedure No -Procedure Performed No -Wound/Ulcer Outcome Not Healed [See Physician Procedure note for Specifics] Pain Scale: 0-10 Numeric [Pain] -Is Patient Pain Free? Yes Musculoskeletal: No Tenderness to Palpation of Joints or Extremities Neurological: Neuro grossly intact Psych/Mental Status: Normal Affect, Appropriate Debridement Note Post-Debridement Measurements/Treatment - Nurse 2 - General Ulcer CM Notes Start: 01/26/19 09:35 Freq: Status: Active Protocol: Activity Type Activity Date Activity User E-Sign Co-Sign Detail Recorded Client Recorded Date Recorded By Document 01/26/19 10:28 DV [id number] 01/26/19 10:33 DV 01/26/19 10:28 Wound Center Nurse 2 #5 Left Lateral Plantar -Time 10:30 -Correct Patient Yes -Correct Side, Site, Position Yes -Correct Procedure Yes -Procedure Performed Yes -Type of Procedure Debridement -Clinical Debridement Subcutaneous -Post Debridement Size (cm) - Length 8.5 -Post Debridement Size (cm) - Width 6.0 -Post Debridement Size (cm) - Depth 0.4 -Total Square Cm 51.00 -Wound/Ulcer Outcome Not Healed -Ulcer Cleansing soap -Foul Odor after Cleansing No -Bioengineered Tissue No -Bleeding Controlled with Pressure -Offloading No -Treatment Response Procedure Tolerated Well #4 Right Lateral Malleolus-Post Op -Time 10:30 -Correct Patient Yes -Correct Side, Site, Position Yes -Correct Procedure No -Procedure Performed No -Wound/Ulcer Outcome Not Healed Pain Scale: 0-10 Numeric Is Patient Pain Free? Yes Wound debrided: Right lateral malleolus Laterality: Right Type of Debridement: Excisional debridement Anesthesia Used: 4% Lidocaine Solution Depth: Down to and including healthy tissue, in the subcutaneous layer Percentage of wound debrided: 100 Instrument Used: 7mm curette Tissue Removed: Subcutaneous tissue and slough Severity: Fat Layer Exposed Amount of bleeding with debridement: Mild Bleeding Controlled with: Pressure Patient tolerated procedure well Assessment/Plan Active Problems (Last Reviewed 12/25/18 @ 16:03 by Jamee Sawant PA-C) Hemoglobin A1c greater than 9.0% (Chronic) 12.2 Diabetic ulcer of right ankle (Acute) diabetic ulcer abscess right lateral malleolus Diabetic foot ulcer associated with type 2 diabetes mellitus (Chronic) Type II diabetes mellitus, uncontrolled (Chronic) Assessment: Diabetic ulcer of right ankle -diabetic ulcer abscess right lateral malleolus. Diabetic foot ulcer associated with type 2 diabetes mellitus. Hemoglobin A1c greater than 9.0%. Type II diabetes mellitus, uncontrolled Plan: Patient was evaluated in the wound center today. Plan of care was reviewed with patient and her daughter. Her prealbumin 9.1 from 12/28/18. HgA1C 12.2% on 12/21/18. Her wound care to her right lateral malleolus is a wound VAC at [address] Allen is managing her left foot plantar ulcer with srinivas. Encouraged her to increase her protein intake. Encouraged her to try and keep her blood surgars under control. Her daughter would like the patient to see endocrinology. Instructed her to speak to her PCP for a referral. She was given percocet prescription on 01/24/19 (30 tabs) for pain. Her OARRS report was reviewed. No suspicious activity. She will follow up Tuesday. Code Visit [id number]
--- NOTE | 2019-01-26 11:20 | HP.PCM_ITS ---
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 technician terminal and repeater insulin use: with technician terminal and repeater use Qualified Code(s): E11.621 - Type 2 diabetes mellitus with foot ulcer; L97.509 - Non- pressure chronic ulcer of other part of unspecified foot with unspecified severity; 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 Code(s): E11.621 - Type 2 diabetes mellitus with foot ulcer; L97.509 - Non- pressure chronic ulcer of other part of unspecified foot with unspecified severity (3) Hemoglobin A1c greater than 9.0% Status: Chronic Current Visit: Yes Code(s): R73.09 - Other abnormal glucose Comment: 12.2 (4) Type II diabetes mellitus, uncontrolled Status: Chronic Current Visit: Yes Qualifiers: Glycemic state: with hyperglycemia Qualified Code(s): E11.65 - Type 2 diabetes mellitus with hyperglycemia Code(s): E11.65 - Type 2 diabetes mellitus with hyperglycemia History of Present Illness Date of Service: 01/26/19 Chief Complaint: Right ankle diabetic ulcer History of Wound: Patient had an I&D of her right lateral ankle infection on 12/22/[address] Allen. She was taken back to surgery on 12/27/[address] Taylor for a surgical preparation right lateral malleoluswith incision and drainage and exicisional debridement necrotizing diabetic ulcer abscess (40 cm2). Her wound cultures from 12/27/18 grew Staphylococcu aureus. She was treated with Unasyn and sent to [facility] on Keflex and a wound VAC. On 12/28/18 her prealbumin was 9.1. On 12/21/18 her HgA1C was 12.2%. She now has home health to help with wound VAC changes. She is still seeing Dr. Allen for a diabetic foot ulcer on the plantar surface, lateral aspect of her left foot that srinivas is being applied to daily. Past Medical History Past Medical History: Chronic Problems (Last Reviewed 12/25/18 @ 16:03 by Jamee Sawant PA-C) Hemoglobin A1c greater than 9.0% (Chronic) 12.2 CAD (coronary artery disease) (Chronic) HTN (hypertension) (Chronic) HLD (hyperlipidemia) (Chronic) Neuropathic pain (Chronic) GERD (gastroesophageal reflux disease) (Chronic) Hypomagnesemia (Chronic) Back pain, chronic (Chronic) Depression (Chronic) Diabetic foot ulcer associated with type 2 diabetes mellitus (Chronic) RLS (restless legs syndrome) (Chronic) Type II diabetes mellitus, uncontrolled (Chronic) Anxiety state (Chronic) Surgical History: - - [facility] R foot toe amputations and I+Ds, BL carpal tunnel surgery 1994, right shoulder surgery in 1994, section x2, most recently LLE I+D. Allergies/Adverse Reactions: Allergies Penicillins Allergy (Verified 01/09/19 17:35) Shortness of breath metronidazole Adverse Reaction (Verified 01/09/19 17:35) Nausea OXYCONTIN Allergy (Uncoded 01/09/19 17:35) Shortness of breath Home Medications: Ambulatory Orders Medication Instructions Recorded Ascorbic Acid [Vitamin C] 500 mg PO BIDCM 09/20/18 Gabapentin [Neurontin] 800 mg PO TIDCM 09/20/18 Ropinirole HCl [Requip] 3 mg PO BID 09/20/18 Atorvastatin Calcium [Lipitor] 80 mg PO QHS 09/23/18 Lisinopril [Zestril] 5 mg PO DAILY 09/23/18 Metoprolol Tartrate [Lopressor 12.5 mg PO BID 09/23/18 (beta kunal)] escitalopram 10 mg tablet 10 mg PO DAILY 09/28/18 Clopidogrel Bisulfate [Plavix] 75 mg PO DAILY 12/21/18 Metoclopramide [Reglan] 10 mg PO TID PRN #30 tablet 12/29/18 Acetaminophen [Tylenol Tablet] 650 mg PO Q6H PRN PRN 01/04/19 Doxycycline Hyclate 100 mg PO BID 01/04/19 Insulin Glargine,Hum.rec.anlog 40 unit SQ BREAKFAST 01/04/19 [Basaglar Kwikpen U-100] Insulin Lispro [Humalog KwikPen] 5 unit SQ TIDCM 01/04/19 Insulin Lispro [Humalog KwikPen] See Protocol SC TIDCM 01/04/19 Iron Polysaccharide Complex 150 mg PO DAILYCM 01/04/19 [Ferrex 150] Lactobacillus Acidophilus 1 cap PO DAILY 01/04/19 [Acidophilus Lactobacilli] Nutritional Supplement [Ted - 1 packet PO BIDCM 01/04/19 ORANGE FLAVOR] Oxycodone HCl 5 mg PO Q12H PRN PRN 01/04/19 Pantoprazole Sodium [Protonix] 40 mg PO BID 01/04/19 oxycodone-acetaminophen 5 mg-325 1 tab PO 4X/DAY PRN #30 tab 01/24/19 mg tablet - Family History Maternal Cancer - Patient had a brother who had testicular cancer; and later cancer in his stomach., Diabetes, Hypertension, - - Her mother at the age of 67 to a blood clot to the brain. She had had multiple strokes preceding that. Patient had 3 brothers who had bypass surgery in their 50s. Paternal - - Patient states her father when she was 5 years old, denies known medical history, denies known cardiac history. Sibling - - She has one brother who is secondary to cancer and she does not know what kind of cancer he had. She also has 3 brothers with a history of car diovascular disease, stents and coronary artery bypass grafting. Smoking Status: Never smoker Review of Systems Constitutional: Denies: Chills, Fever, Weight Change Eyes: Denies: Pain, Vision Change HEENT: Denies: Difficulty Hearing, Difficulty Swallowing, Sinus Congestion Cardiovascular: Denies: Chest Pain, Palpitations Respiratory: Denies: Cough, Shortness of Breath Gastrointestinal: Denies: Diarrhea, Nausea, Vomiting Musculoskeletal: Reports: - - right ankle pain and left foot pain Skin: Reports: Wounds - Right lateral malleous ulcer and left plantar foot ulcer Neurological: Reports: Numbness - has diabetic neuropathy bilateral feet. Denies: Balance problems, Slurred speech - Physical Exam Vital Signs Temp Pulse Resp BP 93.7 F L 94 18 145/84 H 01/26/19 09:39 01/26/19 09:39 01/26/19 09:39 01/26/19 09:39 General: Alert, Oriented x3, Cooperative HEENT: Atraumatic Oral: Moist Mucosa Lungs: Clear to auscultation, Normal air movement Cardiovascular: Regular rate, Regular Rhythm Abdomen: Soft, Non Tender Extremities: No edema, Capillary Refill Less than 3 Seconds, No Calf Tenderness, Peripheral Pulses Normal Skin: Ulcer/ Wound - Right lateral malleolus and left foot plantar surface Wound Measurements and Assessment WC - Nurse 1 - General Ulcer Measurement Start: 01/26/19 09:35 Freq: Status: Active Protocol: Activity Type Activity Date Activity User E-Sign Co-Sign Detail Recorded Client Recorded Date Recorded By Document 01/26/19 09:39 DV [id number] 01/26/19 10:28 DV 01/26/19 09:39 Wound Center Nurse 1 [Ulcer Assessment] #5 Left Lateral Plantar -Combined with other wound No -Current Size (cm) - Length 1.3 -Current Size (cm) - Width 0.9 -Current Size (cm) - Depth 0.2 -Total Square Cm 1.17 -Date of Last Picture (Recall this 01/26/19 field) -Photo Taken Yes -Epithelialization None Present -Tunneling No -Undermining/Tunneling No -Circular Undermining No -Classification - Thickness Full Thickness without Exposed Support Structure -Exudate Amt Large -Exudate Type Sanguineous -Wound Margin Flat & Intact -Granulation Amt None Present (0 %) -Granulation Quality N/A -Slough/Fibrin Yes -Necrosis Amt Large (67-100%) -Necrotic Tissue Type Adherent Slough -Structure Exposed None/Limited to Skin Breakdown -Texture (Natacha-wound Skin Appearance) Assessed Scarring -Moisture (Natacha-wound Skin Appearance Assessed ) Weeping -Color (Natacha-wound Skin Appearance) Assessed Erythema -Temperature (Natacha-wound Skin Cool/Cold Appearance) -Tenderness on Palpation (Natacha-wound No Skin Appearance) -Ulcer Cleansing soap -Foul Odor after Cleansing No -Anesthetic Used 4% Lidocaine Solution #4 Right Lateral Malleolus-Post Op -Current Size (cm) - Length 7.5 -Current Size (cm) - Width 6.2 -Current Size (cm) - Depth 0.4 -Total Square Cm 46.50 -Date of Last Picture (Recall this 01/26/19 field) -Photo Taken Yes -Epithelialization None Present -Tunneling No -Undermining/Tunneling No -Circular Undermining No -Exudate Amt Large -Exudate Type Serosanguineous -Wound Margin Flat & Intact -Granulation Amt Large (67-100%) -Granulation Quality Red -Slough/Fibrin Yes -Necrosis Amt Medium (34-66%) -Necrotic Tissue Type Adherent Slough -Structure Exposed N/A -Texture (Natacha-wound Skin Appearance) Assessed Localized Edema Scarring -Moisture (Natacha-wound Skin Appearance Assessed ) Maceration -Color (Natacha-wound Skin Appearance) Assessed Erythema -Temperature (Natacha-wound Skin Cool/Cold Appearance) -Tenderness on Palpation (Natacha-wound Yes Skin Appearance) -Ulcer Cleansing Soap -Foul Odor after Cleansing No -Anesthetic Used 4% Lidocaine Solution WC - Nurse 2 - General Ulcer CM Notes Start: 01/26/19 09:35 Freq: Status: Active Protocol: Activity Type Activity Date Activity User E-Sign Co-Sign Detail Recorded Client Recorded Date Recorded By Document 01/26/19 10:28 DV [id number] 01/26/19 10:33 DV 01/26/19 10:28 Wound Center Nurse 2 [Procedure/Treatment] #5 Left Lateral Plantar -Time 10:30 -Correct Patient Yes -Correct Side, Site, Position Yes -Correct Procedure Yes -Procedure Performed Yes -Type of Procedure Debridement -Clinical Debridement Subcutaneous -Post Debridement Size (cm) - Length 8.5 -Post Debridement Size (cm) - Width 6.0 -Post Debridement Size (cm) - Depth 0.4 -Total Square Cm 51.00 -Wound/Ulcer Outcome Not Healed -Ulcer Cleansing soap -Foul Odor after Cleansing No -Bioengineered Tissue No -Bleeding Controlled with Pressure -Offloading No -Treatment Response Procedure Tolerated Well #4 Right Lateral Malleolus-Post Op -Time 10:30 -Correct Patient Yes -Correct Side, Site, Position Yes -Correct Procedure No -Procedure Performed No -Wound/Ulcer Outcome Not Healed [See Physician Procedure note for Specifics] Pain Scale: 0-10 Numeric [Pain] -Is Patient Pain Free? Yes Musculoskeletal: No Tenderness to Palpation of Joints or Extremities Neurological: Neuro grossly intact Psych/Mental Status: Normal Affect, Appropriate Debridement Note Post-Debridement Measurements/Treatment - Nurse 2 - General Ulcer CM Notes Start: 01/26/19 09:35 Freq: Status: Active Protocol: Activity Type Activity Date Activity User E-Sign Co-Sign Detail Recorded Client Recorded Date Recorded By Document 01/26/19 10:28 DV [id number] 01/26/19 10:33 DV 01/26/19 10:28 Wound Center Nurse 2 #5 Left Lateral Plantar -Time 10:30 -Correct Patient Yes -Correct Side, Site, Position Yes -Correct Procedure Yes -Procedure Performed Yes -Type of Procedure Debridement -Clinical Debridement Subcutaneous -Post Debridement Size (cm) - Length 8.5 -Post Debridement Size (cm) - Width 6.0 -Post Debridement Size (cm) - Depth 0.4 -Total Square Cm 51.00 -Wound/Ulcer Outcome Not Healed -Ulcer Cleansing soap -Foul Odor after Cleansing No -Bioengineered Tissue No -Bleeding Controlled with Pressure -Offloading No -Treatment Response Procedure Tolerated Well #4 Right Lateral Malleolus-Post Op -Time 10:30 -Correct Patient Yes -Correct Side, Site, Position Yes -Correct Procedure No -Procedure Performed No -Wound/Ulcer Outcome Not Healed Pain Scale: 0-10 Numeric Is Patient Pain Free? Yes Wound debrided: Right lateral malleolus Laterality: Right Type of Debridement: Excisional debridement Anesthesia Used: 4% Lidocaine Solution Depth: Down to and including healthy tissue, in the subcutaneous layer Percentage of wound debrided: 100 Instrument Used: 7mm curette Tissue Removed: Subcutaneous tissue and slough Severity: Fat Layer Exposed Amount of bleeding with debridement: Mild Bleeding Controlled with: Pressure Patient tolerated procedure well Assessment/Plan Active Problems (Last Reviewed 12/25/18 @ 16:03 by Jamee Sawant PA-C) Hemoglobin A1c greater than 9.0% (Chronic) 12.2 Diabetic ulcer of right ankle (Acute) diabetic ulcer abscess right lateral malleolus Diabetic foot ulcer associated with type 2 diabetes mellitus (Chronic) Type II diabetes mellitus, uncontrolled (Chronic) Assessment: Diabetic ulcer of right ankle -diabetic ulcer abscess right lateral malleolus. Diabetic foot ulcer associated with type 2 diabetes mellitus. Hemoglobin A1c greater than 9.0%. Type II diabetes mellitus, uncontrolled Plan: Patient was evaluated in the wound center today. Plan of care was reviewed with patient and her daughter. Her prealbumin 9.1 from 12/28/18. HgA1C 12.2% on 12/21/18. Her wound care to her right lateral malleolus is a wound VAC at [address] Allen is managing her left foot plantar ulcer with srinivas. Encouraged her to increase her protein intake. Encouraged her to try and keep her blood surgars under control. Her daughter would like the patient to see endocrinology. Instructed her to speak to her PCP for a referral. She was given percocet prescription on 01/24/19 (30 tabs) for pain. Her OARRS report was reviewed. No suspicious activity. She will follow up Tuesday. Code Visit 30122
[2019-01-29 12:01] VITALS: BP 134/76; PULSE 109; RESP 18; TEMP 36.9; BMI 29.0
--- NOTE | 2019-01-29 13:05 | PN.PCM_ITS ---
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 insulin use: with bed bug exterminator use Qualified Code(s): E11.621 - Type 2 diabetes mellitus with foot ulcer; L97.509 - Non- pressure chronic ulcer of other part of unspecified foot with unspecified severity; Z79.4 - nursing home (current) use of insulin Code(s): E11.621 - Type 2 diabetes mellitus with foot ulcer; L97.509 - Non- pressure chronic ulcer of other part of unspecified foot with unspecified severity (3) Hemoglobin A1c greater than 9.0% Status: Chronic Current Visit: Yes Code(s): R73.09 - Other abnormal glucose Comment: 12.2 (4) Type II diabetes mellitus, uncontrolled Status: Chronic Current Visit: Yes Qualifiers: Glycemic state: with hyperglycemia Qualified Code(s): E11.65 - Type 2 diabetes mellitus with hyperglycemia Code(s): E11.65 - Type 2 diabetes mellitus with hyperglycemia Type of Wound Date of Service: 01/29/19 Chief Complaint: Right ankle diabetic ulcer History of Wound: Patient had an I&D of her right lateral ankle infection on 12/22/[address] Allen. She was taken back to surgery on 12/27/[address] Taylor for a surgical preparation right lateral malleoluswith incision and drainage and exicisional debridement necrotizing diabetic ulcer abscess (40 cm2). Her wound cultures from 12/27/18 grew Staphylococcu aureus. She was treated with Unasyn and sent to [place] on Keflex and a wound VAC. On 12/28/18 her prealbumin was 9.1. On 12/21/18 her HgA1C was 12.2%. She now has home health to help with wound VAC changes. We will apply for Appligraft to go on her right lateral ankle under the wound VAC. This should be beneficial to help with wound healing. She is still seeing Dr. Allen for a diabetic foot ulcer on the plantar surface, lateral aspect of her left foot that srinivas is being applied to daily. She would like to have us manage this ucler while she is coming to the wound center so she has one less appointment for her daughter to take her to. Since we are going to manage the left plantar ulcer, we will apply for Regranix daily to that area. That should help with wound healing. Progress of Wound: Stable. - Physical Exam Vital Signs Temp Pulse Resp BP 98.4 F 109 H 18 134/76 H 01/29/19 12:01 01/29/19 12:01 01/29/19 12:01 01/29/19 12:01 General: Alert, Oriented x3, Cooperative HEENT: Atraumatic Oral: Moist Mucosa Lungs: Normal air movement Cardiovascular: Regular rate Extremities: No edema, Capillary Refill Less than 3 Seconds, Diminished Peripheral Pulses Skin: Ulcer/ Wound - Right lateral malleolus and left plantar foot ulcers Wound Measurements and Assessment WC - Nurse 1 - General Ulcer Measurement Start: 01/26/19 09:35 Freq: Status: Active Protocol: Activity Type Activity Date Activity User E-Sign Co-Sign Detail Recorded Client Recorded Date Recorded By Document 01/29/19 12:01 [id number] 01/29/19 12:20 AN 01/29/19 12:01 Wound Center Nurse 1 [Ulcer Assessment] #5 Left Lateral Plantar -Current Size (cm) - Length 0.7 -Current Size (cm) - Width 0.5 -Current Size (cm) - Depth 0.2 -Total Square Cm 0.35 -Classification - Thickness Full Thickness without Exposed Support Structure -Exudate Amt Medium -Exudate Type Serosanguineous -Wound Margin Distinct, Outline Attached -Granulation Amt Large (67-100%) -Granulation Quality [place] -Slough/Fibrin Yes -Necrosis Amt Small (1-33%) -Necrotic Tissue Type Eschar -Texture (Natacha-wound Skin Appearance) Assessed Callus -Moisture (Natacha-wound Skin Appearance Assessed ) -Color (Natacha-wound Skin Appearance) Assessed -Temperature (Natacha-wound Skin No Abnormality Appearance) (Pt Warm) -Tenderness on Palpation (Natacha-wound No Skin Appearance) -Ulcer Cleansing Rinsed/ Irrigated with Saline -Foul Odor after Cleansing No -Anesthetic Used 4% Lidocaine Solution #4 Right Lateral Malleolus-Post Op -Current Size (cm) - Length 6.5 -Current Size (cm) - Width 6.6 -Current Size (cm) - Depth 0.4 -Total Square Cm 42.90 -Classification - Thickness Full Thickness without Exposed Support Structure -Exudate Amt Medium -Exudate Type Serosanguineous -Wound Margin Distinct, Outline Attached -Granulation Amt Small (1-33%) -Granulation Quality Red -Slough/Fibrin Yes -Necrosis Amt Large (67-100%) -Necrotic Tissue Type Adherent Slough -Structure Exposed Tendon -Texture (Natacha-wound Skin Appearance) Assessed Localized Edema -Moisture (Natacha-wound Skin Appearance Assessed ) Maceration -Color (Natacha-wound Skin Appearance) Assessed Erythema -Temperature (Natacha-wound Skin No Abnormality Appearance) (Pt Warm) -Tenderness on Palpation (Natacha-wound Yes Skin Appearance) -Ulcer Cleansing Rinsed/ Irrigated with Saline -Foul Odor after Cleansing Yes -Anesthetic Used 4% Lidocaine Solution WC - Nurse 2 - General Ulcer CM Notes Start: 01/26/19 09:35 Freq: Status: Active Protocol: Activity Type Activity Date Activity User E-Sign Co-Sign Detail Recorded Client Recorded Date Recorded By Document 01/29/19 12:51 LISSY [id number] 01/29/19 12:53 LISSY 01/29/19 12:51 Wound Center Nurse 2 [Procedure/Treatment] #5 Left Lateral Plantar -Time 12:51 -Correct Patient Yes -Correct Side, Site, Position Yes -Correct Procedure Yes -Procedure Performed Yes -Type of Procedure Debridement -Clinical Debridement Subcutaneous -Post Debridement Size (cm) - Length 1.0 -Post Debridement Size (cm) - Width 3.0 -Post Debridement Size (cm) - Depth 0.4 -Total Square Cm 3.00 -Wound/Ulcer Outcome Not Healed -Ulcer Cleansing Rinsed/ Irrigated with Saline -Foul Odor after Cleansing No -Bioengineered Tissue No -Bleeding Controlled with Pressure -Offloading No -Treatment Response Procedure Tolerated Well #4 Right Lateral Malleolus-Post Op -Time 12:52 -Correct Patient Yes -Correct Side, Site, Position Yes -Correct Procedure Yes -Procedure Performed Yes -Type of Procedure Debridement -Clinical Debridement Subcutaneous -Post Debridement Size (cm) - Length 7.8 -Post Debridement Size (cm) - Width 6.0 -Post Debridement Size (cm) - Depth 1.0 -Total Square Cm 46.80 -Wound/Ulcer Outcome Not Healed -Ulcer Cleansing Rinsed/ Irrigated with Saline -Foul Odor after Cleansing No -Bioengineered Tissue No -Bleeding Controlled with Pressure -Offloading No -Treatment Response Procedure Tolerated Well [See Physician Procedure note for Specifics] Pain Scale: 0-10 Numeric [Pain] -Is Patient Pain Free? Yes Musculoskeletal: No Tenderness to Palpation of Joints or Extremities Neurological: Neuro grossly intact Psych/Mental Status: Normal Affect, Appropriate Debridement Note Post-Debridement Measurements/Treatment WC - Nurse 2 - General Ulcer CM Notes Start: 01/26/19 09:35 Freq: Status: Active Protocol: Activity Type Activity Date Activity User E-Sign Co-Sign Detail Recorded Client Recorded Date Recorded By Document 01/26/19 10:28 DV [id number] 01/26/19 10:33 DV Document 01/29/19 12:51 [id number] 01/29/19 12:53 01/26/19 01/29/19 10:28 12:51 Wound Center Nurse 2 #5 Left Lateral Plantar -Time 10:30 12:51 -Correct Patient Yes Yes -Correct Side, Site, Position Yes Yes -Correct Procedure Yes Yes -Procedure Performed Yes Yes -Type of Procedure Debridement Debridement -Clinical Debridement Subcutaneous Subcutaneous -Post Debridement Size (cm) - Length 8.5 1.0 -Post Debridement Size (cm) - Width 6.0 3.0 -Post Debridement Size (cm) - Depth 0.4 0.4 -Total Square Cm 51.00 3.00 -Wound/Ulcer Outcome Not Healed Not Healed -Ulcer Cleansing soap Rinsed/ Irrigated with Saline -Foul Odor after Cleansing No No -Bioengineered Tissue No No -Bleeding Controlled with Pressure Pressure -Offloading No No -Treatment Response Procedure Procedure Tolerated Well Tolerated Well #4 Right Lateral Malleolus-Post Op -Time 10:30 12:52 -Correct Patient Yes Yes -Correct Side, Site, Position Yes Yes -Correct Procedure No Yes -Procedure Performed No Yes -Type of Procedure Debridement -Clinical Debridement Subcutaneous -Post Debridement Size (cm) - Length 7.8 -Post Debridement Size (cm) - Width 6.0 -Post Debridement Size (cm) - Depth 1.0 -Total Square Cm 46.80 -Wound/Ulcer Outcome Not Healed Not Healed -Ulcer Cleansing Rinsed/ Irrigated with Saline -Foul Odor after Cleansing No -Bioengineered Tissue No -Bleeding Controlled with Pressure -Offloading No -Treatment Response Procedure Tolerated Well Pain Scale: 0-10 Numeric Is Patient Pain Free? Yes Yes Wound debrided: Right lateral ankle/malleolus Laterality: Right Type of Debridement: Excisional debridement Anesthesia Used: 4% Lidocaine Solution Depth: Down to and including healthy tissue, in the subcutaneous layer Percentage of wound debrided: 100 Instrument Used: 7mm curette Tissue Removed: Subcutaneous tissue and slough Severity: Fat Layer Exposed Amount of bleeding with debridement: Mild Bleeding Controlled with: Pressure Patient tolerated procedure well - Additional Wound Wound debrided: Left plantar foot Laterality: Left Type of Debridement: Excisional debridement Anesthesia Used: 4% Lidocaine Solution Depth: Down to and including healthy tissue, in the subcutaneous layer Percentage of wound debrided: 100 Instrument Used: 5mm curette Tissue Removed: Subcutaneous tissue and slough Severity: Fat Layer Exposed Amount of bleeding with debridement: Mild Bleeding Controlled with: Pressure Patient tolerated procedure: Patient tolerated procedure well Assessment/Plan Active Problems (Last Updated 01/30/19 @ 09:58 by Zach Mitchell [employer]) Hemoglobin A1c greater than 9.0% (Chronic) 12.2 Diabetic ulcer of right ankle (Acute) diabetic ulcer abscess right lateral malleolus Diabetic foot ulcer associated with type 2 diabetes mellitus (Chronic) Type II diabetes mellitus, uncontrolled (Chronic) Assessment: Diabetic ulcer of right ankle -diabetic ulcer abscess right lateral malleolus. Diabetic foot ulcer associated with type 2 diabetes mellitus. Hemoglobin A1c greater than 9.0%. Type II diabetes mellitus, uncontrolled Plan: Patient was evaluated in the wound center today. Plan of care was reviewed with patient and her daughter. Her prealbumin 9.1 from 12/28/18. HgA1C 12.2% on 12/21/18. Her wound care to her right lateral malleolus is a wound VAC at 150 mmHg. We will apply for Appligraft to be applied under the wound VAC. She is complaining about right ankle pain, so will take a wound VAC holiday until Tuesday (2 days) when home health can reapply the vac. We also will switch her to a I wound VAC. Dr. Allen has been managing her left foot plantar ulcer with srinivas. The patient would like us to manage the left plantar ulcer at this time, just to help decrease the number of appointments her daughter needs to take her to. We will apply for Regranix to her left plantar diabetic foot ulcer. This should help expidite the ulcer healing. She will continue to use Srinivas until she receives the Regranix. She will continue to wear her Cam walker on her left. Encouraged her to increase her protein intake. Encouraged her to try and keep her blood surgars under control. Her daughter would like the patient to see endocrinology. Instructed her to speak to her PCP for a referral. She will follow up in one week. Code Visit [id number]
[2019-02-05 10:51] VITALS: BP 127/71; PULSE 105; RESP 22; TEMP 36.2; BMI 29.0
--- NOTE | 2019-02-05 12:42 | PCM.WC.PN ---
(1) Diabetic ulcer of right ankle Status: Chronic Current Visit: Yes Code(s): E11.622 - Type 2 diabetes mellitus with other skin ulcer; L97.319 - Non-pressure chronic ulcer of right ankle with unspecified severity Comment: diabetic ulcer abscess right lateral malleolus (2) Diabetic foot ulcer associated with type 2 diabetes mellitus Status: Chronic Current Visit: Yes Qualifiers: Diabetes mellitus intermediate insulin use: with intermediate use Qualified Code(s): E11.621 - Type 2 diabetes mellitus with foot ulcer; L97.509 - Non-pressure chronic ulcer of other part of unspecified foot with unspecified severity; Z79.4 - watermaster (current) use of insulin Code(s): E11.621 - Type 2 diabetes mellitus with foot ulcer; L97.509 - Non-pressure chronic ulcer of other part of unspecified foot with unspecified severity (3) Hemoglobin A1c greater than 9.0% Status: Chronic Current Visit: Yes Code(s): R73.09 - Other abnormal glucose Comment: 12.2 (4) Type II diabetes mellitus, uncontrolled Status: Chronic Current Visit: Yes Qualifiers: Glycemic state: with hyperglycemia Qualified Code(s): E11.65 - Type 2 diabetes mellitus with hyperglycemia Code(s): E11.65 - Type 2 diabetes mellitus with hyperglycemia Type of Wound Date of Service: 02/05/19 Chief Complaint: Right ankle diabetic ulcer History of Wound: Patient had an I&D of her right lateral ankle infection on 12/22/[address] Allen. She was taken back to surgery on 12/27/[address] Taylor for a surgical preparation right lateral malleoluswith incision and drainage and exicisional debridement necrotizing diabetic ulcer abscess (40 cm2). Her wound cultures from 12/27/18 grew Staphylococcu aureus. She was treated with Unasyn and sent to [place] on Keflex and a wound VAC. On 12/28/18 her prealbumin was 9.1. On 12/21/18 her HgA1C was 12.2%. She now has home health to help with wound VAC changes. We applied Appligraft #1 with adaptic wound veil. today on her right lateral ankle. She did not bring her wound VAC to the clinic, will have home health apply it today. This should be beneficial to help with wound healing. She is still seeing Dr. Allen for a diabetic foot ulcer on the plantar surface, lateral aspect of her left foot that srinivas is being applied to daily. She would like to have us manage this ucler while she is coming to the wound center so she has one less appointment for her daughter to take her to. We started Regranix to the left plantar ulcer. It appears worse with undermining. Will switch to aquacel silver. Will order a knee walker to keep her completely off loaded off of the left foot. Instructed her not to walk on her left foot. She had an MRI of that foot 08/22/18. Will monitor this closely because it may need a surgical debridement. Spoke with Dr. Allen's office about managing the care of her left plantar ulcer. Progress of Wound: Right lateral ankle improved. Left plantar ulcer increased size with undermining. - Physical Exam Vital Signs Temp Pulse Resp BP 97.1 F L 105 H 22 H 127/71 H 02/05/19 10:51 02/05/19 10:51 02/05/19 10:51 02/05/19 10:51 General: Alert, Oriented x3 HEENT: Atraumatic Oral: Moist Mucosa Lungs: Normal air movement Cardiovascular: Regular rate Extremities: No edema, Capillary Refill Less than 3 Seconds, Diminished Peripheral Pulses Skin: Ulcer/ Wound - Right lateral ankle ulcer and left plantar ulcer Wound Measurements and Assessment WC - Nurse 1 - General Ulcer Measurement Start: 01/26/19 09:35 Freq: Status: Active Protocol: Activity Type Activity Date Activity User E-Sign Co-Sign Detail Recorded Client Recorded Date Recorded By Document 02/05/19 10:51 DL [id number] 02/05/19 11:03 DL 02/05/19 10:51 Wound Center Nurse 1 [Ulcer Assessment] #5 Left Lateral Plantar -Current Size (cm) - Length 1 -Current Size (cm) - Width 1.8 -Current Size (cm) - Depth 0.3 -Total Square Cm 1.8 -Photo Taken No -Undermining/Tunneling Starts (O' 11 clock) -Undermining/Tunneling Ends (O'clock) 4 -Maximum Distance (cm) 0.5 -Exudate Amt Medium -Exudate Type Serosanguineous -Wound Margin Distinct, Outline Attached -Granulation Amt Small (1-33%) -Granulation Quality Frontier -Necrosis Amt Large (67-100%) -Necrotic Tissue Type Adherent Slough -Structure Exposed N/A -Texture (Natacha-wound Skin Appearance) Localized Edema Scarring -Moisture (Natacha-wound Skin Appearance Maceration ) -Color (Natacha-wound Skin Appearance) Erythema Rubor -Temperature (Natacha-wound Skin No Abnormality Appearance) (Pt Warm) -Tenderness on Palpation (Natacha-wound Yes Skin Appearance) -Ulcer Cleansing Rinsed/ Irrigated with Saline -Anesthetic Used 4% Lidocaine Solution 5% Lidocaine Gel #4 Right Lateral Malleolus-Post Op -Current Size (cm) - Length 7.5 -Current Size (cm) - Width 5.5 -Current Size (cm) - Depth 0.2 -Total Square Cm 41.25 -Photo Taken No -Exudate Amt Medium -Exudate Type Serosanguineous -Wound Margin Distinct, Outline Attached -Granulation Amt Medium (34-66%) -Granulation Quality Frontier -Necrosis Amt Medium (34-66%) -Necrotic Tissue Type Adherent Slough -Structure Exposed N/A -Texture (Natacha-wound Skin Appearance) Localized Edema Scarring -Color (Natacha-wound Skin Appearance) Erythema -Temperature (Natacha-wound Skin No Abnormality Appearance) (Pt Warm) -Tenderness on Palpation (Natacha-wound Yes Skin Appearance) -Ulcer Cleansing Rinsed/ Irrigated with Saline -Foul Odor after Cleansing No -Anesthetic Used 4% Lidocaine Solution 5% Lidocaine Gel WC - Nurse 2 - General Ulcer CM Notes Start: 01/26/19 09:35 Freq: Status: Active Protocol: Activity Type Activity Date Activity User E-Sign Co-Sign Detail Recorded Client Recorded Date Recorded By Document 02/05/19 11:37 LISSY [id number] 02/05/19 11:40 LISSY 02/05/19 11:37 Wound Center Nurse 2 [Procedure/Treatment] #5 Left Lateral Plantar -Time 11:37 -Correct Patient Yes -Correct Side, Site, Position Yes -Correct Procedure Yes -Procedure Performed Yes -Type of Procedure Debridement -Clinical Debridement Subcutaneous -Post Debridement Size (cm) - Length 1.7 -Post Debridement Size (cm) - Width 2.0 -Post Debridement Size (cm) - Depth 0.5 -Total Square Cm 3.40 -Wound/Ulcer Outcome Not Healed -Ulcer Cleansing Rinsed/ Irrigated with Saline -Foul Odor after Cleansing No -Bioengineered Tissue No -Bleeding Controlled with Pressure -Offloading Yes -Type of Offloading Camwalker -Treatment Response Procedure Tolerated Well #4 Right Lateral Malleolus-Post Op -Time 11:39 -Correct Patient Yes -Correct Side, Site, Position Yes -Correct Procedure Yes -Procedure Performed Yes -Type of Procedure Debridement -Clinical Debridement Subcutaneous -Post Debridement Size (cm) - Length 8 -Post Debridement Size (cm) - Width 5.5 -Post Debridement Size (cm) - Depth 0.3 -Total Square Cm 44.0 -Wound/Ulcer Outcome Not Healed -Ulcer Cleansing Rinsed/ Irrigated with Saline -Foul Odor after Cleansing No -Bioengineered Tissue Yes -Type of bioengineered Tissue Apligraf -Expiration Date 02/13/19 -Product Lot Number [id number] -Percent Used 100 -Saline Lot Number [id number] -Bleeding Controlled with Pressure -Offloading Yes -Type of Offloading Surgical Shoe -Treatment Response Procedure Tolerated Well [See Physician Procedure note for Specifics] Pain Scale: 0-10 Numeric [Pain] -Is Patient Pain Free? Yes Musculoskeletal: No Tenderness to Palpation of Joints or Extremities Neurological: Neuro grossly intact Psych/Mental Status: Normal Affect, Appropriate Debridement Note Post-Debridement Measurements/Treatment WC - Nurse 2 - General Ulcer CM Notes Start: 01/26/19 09:35 Freq: Status: Active Protocol: Activity Type Activity Date Activity User E-Sign Co-Sign Detail Recorded Client Recorded Date Recorded By Document 01/26/19 10:28 [id number] 01/26/19 10:33 Document 01/29/19 12:51 [id number] 01/29/19 12:53 Document 02/05/19 11:37 [id number] 02/05/19 11:40 01/26/19 01/29/19 02/05/19 10:28 12:51 11:37 Wound Center Nurse 2 #5 Left Lateral Plantar -Time 10:30 12:51 11:37 -Correct Patient Yes Yes Yes -Correct Side, Site, Position Yes Yes Yes -Correct Procedure Yes Yes Yes -Procedure Performed Yes Yes Yes -Type of Procedure Debridement Debridement Debridement -Clinical Debridement Subcutaneous Subcutaneous Subcutaneous -Post Debridement Size (cm) - Length 8.5 1.0 1.7 -Post Debridement Size (cm) - Width 6.0 3.0 2.0 -Post Debridement Size (cm) - Depth 0.4 0.4 0.5 -Total Square Cm 51.00 3.00 3.40 -Wound/Ulcer Outcome Not Healed Not Healed Not Healed -Ulcer Cleansing soap Rinsed/ Rinsed/ Irrigated with Irrigated with Saline Saline -Foul Odor after Cleansing No No No -Bioengineered Tissue No No No -Bleeding Controlled with Pressure Pressure Pressure -Offloading No No Yes -Type of Offloading Camwalker -Treatment Response Procedure Procedure Procedure Tolerated Well Tolerated Well Tolerated Well #4 Right Lateral Malleolus-Post Op -Time 10:30 12:52 11:39 -Correct Patient Yes Yes Yes -Correct Side, Site, Position Yes Yes Yes -Correct Procedure No Yes Yes -Procedure Performed No Yes Yes -Type of Procedure Debridement Debridement -Clinical Debridement Subcutaneous Subcutaneous -Post Debridement Size (cm) - Length 7.8 8 -Post Debridement Size (cm) - Width 6.0 5.5 -Post Debridement Size (cm) - Depth 1.0 0.3 -Total Square Cm 46.80 44.0 -Wound/Ulcer Outcome Not Healed Not Healed Not Healed -Ulcer Cleansing Rinsed/ Rinsed/ Irrigated with Irrigated with Saline Saline -Foul Odor after Cleansing No No -Bioengineered Tissue No Yes -Type of bioengineered Tissue Apligraf -Expiration Date 02/13/19 -Product Lot Number [id number] -Percent Used 100 -Saline Lot Number [id number] -Bleeding Controlled with Pressure Pressure -Offloading No Yes -Type of Offloading Surgical Shoe -Treatment Response Procedure Procedure Tolerated Well Tolerated Well Pain Scale: 0-10 Numeric Is Patient Pain Free? Yes Yes Yes Wound debrided: Right lateral ankle Laterality: Right Type of Debridement: Excisional debridement Anesthesia Used: 4% Lidocaine Solution Depth: Down to and including healthy tissue, in the subcutaneous layer Percentage of wound debrided: 100 Instrument Used: 7mm curette Tissue Removed: Subcutaneous tissue and slough Severity: Fat Layer Exposed Amount of bleeding with debridement: Mild Bleeding Controlled with: Pressure Patient tolerated procedure well - Additional Wound Wound debrided: Left plantar foot Laterality: Left Type of Debridement: Excisional debridement Anesthesia Used: 4% Lidocaine Solution Depth: in the subcutaneous layer Percentage of wound debrided: 100 Instrument Used: 3mm curette Tissue Removed: Subcutaneous tissue and slough Severity: Fat Layer Exposed Amount of bleeding with debridement: Mild Bleeding Controlled with: Pressure Patient tolerated procedure: Patient tolerated procedure well Assessment/Plan Active Problems (Last Updated 01/30/19 @ 09:58 by Zach Mitchell NP-C) Hemoglobin A1c greater than 9.0% (Chronic) 12.2 Diabetic ulcer of right ankle (Chronic) diabetic ulcer abscess right lateral malleolus Diabetic foot ulcer associated with type 2 diabetes mellitus (Chronic) Type II diabetes mellitus, uncontrolled (Chronic) Assessment: Diabetic ulcer of right ankle -diabetic ulcer abscess right lateral malleolus. Diabetic foot ulcer associated with type 2 diabetes mellitus. Hemoglobin A1c greater than 9.0%. Type II diabetes mellitus, uncontrolled Plan: Patient was evaluated in the wound center today. Plan of care was reviewed with patient and her daughter. Her prealbumin 9.1 from 12/28/18. HgA1C 12.2% on 12/21/18. Subcutaneous debridement was performed today. She tolerated it well. Her wound care to her right lateral malleolus is a wound VAC at 150 mmHg. We applied Appligraft #1 covered with a wound veil which was securred with steri strips today. Used 100% of the product. It is to be applied under the wound VAC. She did not bring her wound VAC today, so home health will need to apply it. Dr. Allen has been managing her left foot plantar ulcer with srinivas. The patient would like us to manage the left plantar ulcer at this time, just to help decrease the number of appointments her daughter needs to take her to. She was approved for Regranix to her left plantar diabetic foot ulcer and started it when she received it. Todays she presents with increased undermining of the left plantar ulcer. Her daughter is convinced it is because she was allowed to shower. Will stop the Regranix. Will start aquacel silver packed into the undermining. This may need to be surgically debrided. She is to not put any weight on that area. Ordered a knee scooter. She will continue to wear her Cam walker on her left but use the knee scooter also. Order to [employer] to looe has the Cam walker to see what adjustment need made to the boot. Encouraged her to increase her protein intake. Encouraged her to try and keep her blood surgars under control. Her daughter would like the patient to see endocrinology. Instructed her to speak to her PCP for a referral. She will follow up in one week. Dr. Taylor came in to evaluate the ulcers due to my concern for the need to have the left plantar surgically debrided. Will do conservative treatment at this time. I phoned Dr. Headley office and found she had an MRI of her left foot on 08/22/18. Informed them that we were going to manage her left plantar ulcer at this time and if Dr. Allen has any questions or concerns he is to contact me. She will follow up in one week. Dr. Taylor refilled her Percocet prescription. [facility] report reviewed. No unusual activity seen. Code Visit [id number]
--- NOTE | 2019-02-06 10:49 | PN.PCM_ITS ---
(1) Diabetic ulcer of right ankle Status: Chronic Current Visit: Yes Code(s): E11.622 - Type 2 diabetes mellitus with other skin ulcer; L97.319 - Non-pressure chronic ulcer of right ankle with unspecified severity Comment: diabetic ulcer abscess right lateral malleolus (2) Diabetic foot ulcer associated with type 2 diabetes mellitus Status: Chronic Current Visit: Yes Qualifiers: Diabetes mellitus senior living insulin use: with senior living use Qualified Code(s): E11.621 - Type 2 diabetes mellitus with foot ulcer; L97.509 - Non- pressure chronic ulcer of other part of unspecified foot with unspecified severity; Z79.4 - sausage smoker (current) use of insulin Code(s): E11.621 - Type 2 diabetes mellitus with foot ulcer; L97.509 - Non- pressure chronic ulcer of other part of unspecified foot with unspecified severity (3) Hemoglobin A1c greater than 9.0% Status: Chronic Current Visit: Yes Code(s): R73.09 - Other abnormal glucose Comment: 12.2 (4) Type II diabetes mellitus, uncontrolled Status: Chronic Current Visit: Yes Qualifiers: Glycemic state: with hyperglycemia Qualified Code(s): E11.65 - Type 2 diabetes mellitus with hyperglycemia Code(s): E11.65 - Type 2 diabetes mellitus with hyperglycemia Type of Wound Date of Service: 02/05/19 Chief Complaint: Right ankle diabetic ulcer History of Wound: Patient had an I&D of her right lateral ankle infection on 12/22/[address] Allen. She was taken back to surgery on 12/27/[address] Taylor for a surgical preparation right lateral malleoluswith incision and drainage and exicisional debridement necrotizing diabetic ulcer abscess (40 cm2). Her wound cultures from 12/27/18 grew Staphylococcu aureus. She was treated with Unasyn and sent to [facility] on Keflex and a wound VAC. On 12/28/18 her prealbumin was 9.1. On 12/21/18 her HgA1C was 12.2%. She now has home health to help with wound VAC changes. We applied Appligraft #1 with adaptic wound veil. today on her right lateral ankle. She did not bring her wound VAC to the clinic, will have home health apply it today. This should be beneficial to help with wound healing. She is still seeing Dr. Allen for a diabetic foot ulcer on the plantar surface, lateral aspect of her left foot that srinivas is being applied to daily. She would like to have us manage this ucler while she is coming to the wound center so she has one less appointment for her daughter to take her to. We started Regranix to the left plantar ulcer. It appears worse with undermining. Will switch to aquacel silver. Will order a knee walker to keep her completely off loaded off of the left foot. Instructed her not to walk on her left foot. She had an MRI of that foot 08/22/18. Will monitor this closely because it may need a surgical debridement. Spoke with Dr. Allen's office about managing the care of her left plantar ulcer. Progress of Wound: Right lateral ankle improved. Left plantar ulcer increased size with undermining. - Physical Exam Vital Signs Temp Pulse Resp BP 97.1 F L 105 H 22 H 127/71 H 02/05/19 10:51 02/05/19 10:51 02/05/19 10:51 02/05/19 10:51 General: Alert, Oriented x3 HEENT: Atraumatic Oral: Moist Mucosa Lungs: Normal air movement Cardiovascular: Regular rate Extremities: No edema, Capillary Refill Less than 3 Seconds, Diminished Peripheral Pulses Skin: Ulcer/ Wound - Right lateral ankle ulcer and left plantar ulcer Wound Measurements and Assessment WC - Nurse 1 - General Ulcer Measurement Start: 01/26/19 09:35 Freq: Status: Active Protocol: Activity Type Activity Date Activity User E-Sign Co-Sign Detail Recorded Client Recorded Date Recorded By Document 02/05/19 10:51 DL [id number] 02/05/19 11:03 DL 02/05/19 10:51 Wound Center Nurse 1 [Ulcer Assessment] #5 Left Lateral Plantar -Current Size (cm) - Length 1 -Current Size (cm) - Width 1.8 -Current Size (cm) - Depth 0.3 -Total Square Cm 1.8 -Photo Taken No -Undermining/Tunneling Starts (O' 11 clock) -Undermining/Tunneling Ends (O'clock) 4 -Maximum Distance (cm) 0.5 -Exudate Amt Medium -Exudate Type Serosanguineous -Wound Margin Distinct, Outline Attached -Granulation Amt Small (1-33%) -Granulation Quality [place] -Necrosis Amt Large (67-100%) -Necrotic Tissue Type Adherent Slough -Structure Exposed N/A -Texture (Natacha-wound Skin Appearance) Localized Edema Scarring -Moisture (Natacha-wound Skin Appearance Maceration ) -Color (Natacha-wound Skin Appearance) Erythema Rubor -Temperature (Natacha-wound Skin No Abnormality Appearance) (Pt Warm) -Tenderness on Palpation (Natacha-wound Yes Skin Appearance) -Ulcer Cleansing Rinsed/ Irrigated with Saline -Anesthetic Used 4% Lidocaine Solution 5% Lidocaine Gel #4 Right Lateral Malleolus-Post Op -Current Size (cm) - Length 7.5 -Current Size (cm) - Width 5.5 -Current Size (cm) - Depth 0.2 -Total Square Cm 41.25 -Photo Taken No -Exudate Amt Medium -Exudate Type Serosanguineous -Wound Margin Distinct, Outline Attached -Granulation Amt Medium (34-66%) -Granulation Quality [place] -Necrosis Amt Medium (34-66%) -Necrotic Tissue Type Adherent Slough -Structure Exposed N/A -Texture (Natacha-wound Skin Appearance) Localized Edema Scarring -Color (Natacha-wound Skin Appearance) Erythema -Temperature (Natacha-wound Skin No Abnormality Appearance) (Pt Warm) -Tenderness on Palpation (Natacha-wound Yes Skin Appearance) -Ulcer Cleansing Rinsed/ Irrigated with Saline -Foul Odor after Cleansing No -Anesthetic Used 4% Lidocaine Solution 5% Lidocaine Gel WC - Nurse 2 - General Ulcer CM Notes Start: 01/26/19 09:35 Freq: Status: Active Protocol: Activity Type Activity Date Activity User E-Sign Co-Sign Detail Recorded Client Recorded Date Recorded By Document 02/05/19 11:37 LISSY [id number] 02/05/19 11:40 LISSY 02/05/19 11:37 Wound Center Nurse 2 [Procedure/Treatment] #5 Left Lateral Plantar -Time 11:37 -Correct Patient Yes -Correct Side, Site, Position Yes -Correct Procedure Yes -Procedure Performed Yes -Type of Procedure Debridement -Clinical Debridement Subcutaneous -Post Debridement Size (cm) - Length 1.7 -Post Debridement Size (cm) - Width 2.0 -Post Debridement Size (cm) - Depth 0.5 -Total Square Cm 3.40 -Wound/Ulcer Outcome Not Healed -Ulcer Cleansing Rinsed/ Irrigated with Saline -Foul Odor after Cleansing No -Bioengineered Tissue No -Bleeding Controlled with Pressure -Offloading Yes -Type of Offloading Camwalker -Treatment Response Procedure Tolerated Well #4 Right Lateral Malleolus-Post Op -Time 11:39 -Correct Patient Yes -Correct Side, Site, Position Yes -Correct Procedure Yes -Procedure Performed Yes -Type of Procedure Debridement -Clinical Debridement Subcutaneous -Post Debridement Size (cm) - Length 8 -Post Debridement Size (cm) - Width 5.5 -Post Debridement Size (cm) - Depth 0.3 -Total Square Cm 44.0 -Wound/Ulcer Outcome Not Healed -Ulcer Cleansing Rinsed/ Irrigated with Saline -Foul Odor after Cleansing No -Bioengineered Tissue Yes -Type of bioengineered Tissue Apligraf -Expiration Date 02/13/19 -Product Lot Number [id number] -Percent Used 100 -Saline Lot Number [id number] -Bleeding Controlled with Pressure -Offloading Yes -Type of Offloading Surgical Shoe -Treatment Response Procedure Tolerated Well [See Physician Procedure note for Specifics] Pain Scale: 0-10 Numeric [Pain] -Is Patient Pain Free? Yes Musculoskeletal: No Tenderness to Palpation of Joints or Extremities Neurological: Neuro grossly intact Psych/Mental Status: Normal Affect, Appropriate Debridement Note Post-Debridement Measurements/Treatment WC - Nurse 2 - General Ulcer CM Notes Start: 01/26/19 09:35 Freq: Status: Active Protocol: Activity Type Activity Date Activity User E-Sign Co-Sign Detail Recorded Client Recorded Date Recorded By Document 01/26/19 10:28 [id number] 01/26/19 10:33 Document 01/29/19 12:51 [id number] 01/29/19 12:53 Document 02/05/19 11:37 [id number] 02/05/19 11:40 01/26/19 01/29/19 02/05/19 10:28 12:51 11:37 Wound Center Nurse 2 #5 Left Lateral Plantar -Time 10:30 12:51 11:37 -Correct Patient Yes Yes Yes -Correct Side, Site, Position Yes Yes Yes -Correct Procedure Yes Yes Yes -Procedure Performed Yes Yes Yes -Type of Procedure Debridement Debridement Debridement -Clinical Debridement Subcutaneous Subcutaneous Subcutaneous -Post Debridement Size (cm) - Length 8.5 1.0 1.7 -Post Debridement Size (cm) - Width 6.0 3.0 2.0 -Post Debridement Size (cm) - Depth 0.4 0.4 0.5 -Total Square Cm 51.00 3.00 3.40 -Wound/Ulcer Outcome Not Healed Not Healed Not Healed -Ulcer Cleansing soap Rinsed/ Rinsed/ Irrigated with Irrigated with Saline Saline -Foul Odor after Cleansing No No No -Bioengineered Tissue No No No -Bleeding Controlled with Pressure Pressure Pressure -Offloading No No Yes -Type of Offloading Camwalker -Treatment Response Procedure Procedure Procedure Tolerated Well Tolerated Well Tolerated Well #4 Right Lateral Malleolus-Post Op -Time 10:30 12:52 11:39 -Correct Patient Yes Yes Yes -Correct Side, Site, Position Yes Yes Yes -Correct Procedure No Yes Yes -Procedure Performed No Yes Yes -Type of Procedure Debridement Debridement -Clinical Debridement Subcutaneous Subcutaneous -Post Debridement Size (cm) - Length 7.8 8 -Post Debridement Size (cm) - Width 6.0 5.5 -Post Debridement Size (cm) - Depth 1.0 0.3 -Total Square Cm 46.80 44.0 -Wound/Ulcer Outcome Not Healed Not Healed Not Healed -Ulcer Cleansing Rinsed/ Rinsed/ Irrigated with Irrigated with Saline Saline -Foul Odor after Cleansing No No -Bioengineered Tissue No Yes -Type of bioengineered Tissue Apligraf -Expiration Date 02/13/19 -Product Lot Number [id number] -Percent Used 100 -Saline Lot Number [id number] -Bleeding Controlled with Pressure Pressure -Offloading No Yes -Type of Offloading Surgical Shoe -Treatment Response Procedure Procedure Tolerated Well Tolerated Well Pain Scale: 0-10 Numeric Is Patient Pain Free? Yes Yes Yes Wound debrided: Right lateral ankle Laterality: Right Type of Debridement: Excisional debridement Anesthesia Used: 4% Lidocaine Solution Depth: Down to and including healthy tissue, in the subcutaneous layer Percentage of wound debrided: 100 Instrument Used: 7mm curette Tissue Removed: Subcutaneous tissue and slough Severity: Fat Layer Exposed Amount of bleeding with debridement: Mild Bleeding Controlled with: Pressure Patient tolerated procedure well - Additional Wound Wound debrided: Left plantar foot Laterality: Left Type of Debridement: Excisional debridement Anesthesia Used: 4% Lidocaine Solution Depth: in the subcutaneous layer Percentage of wound debrided: 100 Instrument Used: 3mm curette Tissue Removed: Subcutaneous tissue and slough Severity: Fat Layer Exposed Amount of bleeding with debridement: Mild Bleeding Controlled with: Pressure Patient tolerated procedure: Patient tolerated procedure well Assessment/Plan Active Problems (Last Updated 01/30/19 @ 09:58 by Zach Mitchell NP-C) Hemoglobin A1c greater than 9.0% (Chronic) 12.2 Diabetic ulcer of right ankle (Chronic) diabetic ulcer abscess right lateral malleolus Diabetic foot ulcer associated with type 2 diabetes mellitus (Chronic) Type II diabetes mellitus, uncontrolled (Chronic) Assessment: Diabetic ulcer of right ankle -diabetic ulcer abscess right lateral malleolus. Diabetic foot ulcer associated with type 2 diabetes mellitus. Hemoglobin A1c greater than 9.0%. Type II diabetes mellitus, uncontrolled Plan: Patient was evaluated in the wound center today. Plan of care was reviewed with patient and her daughter. Her prealbumin 9.1 from 12/28/18. HgA1C 12.2% on 12/21/18. Subcutaneous debridement was performed today. She tolerated it well. Her wound care to her right lateral malleolus is a wound VAC at 150 mmHg. We applied Appligraft #1 covered with a wound veil which was securred with steri strips today. Used 100% of the product. It is to be applied under the wound VAC. She did not bring her wound VAC today, so home health will need to apply it. Dr. Allen has been managing her left foot plantar ulcer with srinivas. The patient would like us to manage the left plantar ulcer at this time, just to help decrease the number of appointments her daughter needs to take her to. She was approved for Regranix to her left plantar diabetic foot ulcer and started it when she received it. Todays she presents with increased undermining of the left plantar ulcer. Her daughter is convinced it is because she was allowed to shower. Will stop the Regranix. Will start aquacel silver packed into the undermining. This may need to be surgically debrided. She is to not put any weight on that area. Ordered a knee scooter. She will continue to wear her Cam walker on her left but use the knee scooter also. Order to [employer] to looe has the Cam walker to see what adjustment need made to the boot. Encouraged her to increase her protein intake. Encouraged her to try and keep her blood surgars under control. Her daughter would like the patient to see endocrinology. Instructed her to speak to her PCP for a referral. She will follow up in one week. Dr. Taylor came in to evaluate the ulcers due to my concern for the need to have the left plantar surgically debrided. Will do conservative treatment at this time. I phoned Dr. Headley office and found she had an MRI of her left foot on 08/22/18. Informed them that we were going to manage her left plantar ulcer at this time and if Dr. Allen has any questions or concerns he is to contact me. She will follow up in one week. Dr. Taylor refilled her Percocet prescription. [facility] report reviewed. No unusual activity seen. Code Visit [id number]
== END 2019-02-06 23:59 ==
LOC: WC 10:30
PROVIDERS: Family Provider Family Medicine; PCP Family Medicine; Visit Provider Nurse Practitioner Family
DX: E11.622 Type 2 diabetes mellitus with other skin ulcer (principal); L97.312 Non-pressure chronic ulcer of right ankle with fat layer exposed; E11.621 Type 2 diabetes mellitus with foot ulcer; E11.65 Type 2 diabetes mellitus with hyperglycemia; I25.10 Atherosclerotic heart disease of native coronary artery without angina pectoris; I10 Essential (primary) hypertension; E78.5 Hyperlipidemia, unspecified; K21.9 Gastro-esophageal reflux disease without esophagitis; G25.81 Restless legs syndrome; Z79.899 Other long term (current) drug therapy; Z79.02 Long term (current) use of antithrombotics/antiplatelets; Z79.4 Long term (current) use of insulin; E11.42 Type 2 diabetes mellitus with diabetic polyneuropathy; L97.522 Non-pressure chronic ulcer of other part of left foot with fat layer exposed
CPT/HCPCS: 11042; 11045; 15271; 15272; 97605; 99214; Q4101; G0463

== ENCOUNTER 2019-03-07 15:30 | Outpatient (RCR) | payer MEDICARE, MEDICAID, SELFPAY ==
[2018-09-21 13:23] VITALS: BMI 29.3
[2019-02-07 01:52] VITALS: BP 127/71; PULSE 105; RESP 22; TEMP 36.2
[2019-02-13 11:16] VITALS: BP 143/71; PULSE 110; RESP 18; TEMP 36.4; BMI 29.0
--- NOTE | 2019-02-13 16:21 | PN.PCM_ITS ---
(1) Abscess of right lower leg Status: Chronic Current Visit: Yes Code(s): L02.415 - Cutaneous abscess of right lower limb Comment: diabetic ulcer abscess right lateral malleolus (2) Diabetic ulcer of right ankle Status: Chronic Current Visit: Yes Code(s): E11.622 - Type 2 diabetes mellitus with other skin ulcer; L97.319 - Non-pressure chronic ulcer of right ankle with unspecified severity Comment: diabetic ulcer abscess right lateral malleolus (3) Diabetic foot ulcer associated with type 2 diabetes mellitus Status: Chronic Current Visit: Yes Qualifiers: Code(s): E11.621 - Type 2 diabetes mellitus with foot ulcer; L97.509 - Non- pressure chronic ulcer of other part of unspecified foot with unspecified severity (4) Type II diabetes mellitus, uncontrolled Status: Chronic Current Visit: Yes Qualifiers: Code(s): E11.65 - Type 2 diabetes mellitus with hyperglycemia (5) Hemoglobin A1c greater than 9.0% Status: Chronic Current Visit: Yes Code(s): R73.09 - Other abnormal glucose Comment: 12.2 Type of Wound Date of Service: 02/13/19 Chief Complaint: Right ankle diabetic ulcer History of Wound: Patient had an I&D of her right lateral ankle infection on 12/22/[address] Allen. She was taken back to surgery on 12/27/[address] Taylor for a surgical preparation right lateral malleoluswith incision and drainage and exicisional debridement necrotizing diabetic ulcer abscess (40 cm2). Her wound cultures from 12/27/18 grew Staphylococcu aureus. She was treated with Unasyn and sent to [facility] on Keflex and a wound VAC. On 12/28/18 her prealbumin was 9.1. On 12/21/18 her HgA1C was 12.2%. She now has home health to help with wound VAC changes. We applied Appligraft #2 with adaptic wound veil. today on her right lateral ankle. She did not bring her wound VAC to the clinic, will have home health apply it today. This should be beneficial to help with wound healing. She was seeing Dr. Allen for a diabetic foot ulcer on the plantar surface, lateral aspect of her left foot that srinivas was being applied to daily. She would like to have us manage this ucler while she is coming to the wound center so she has one less appointment for her daughter to take her to. Spoke with Dr. Allen and he agrees with this plan. We started Regranix to the left plantar ulcer. It appears worse with undermining. Will switch to aquacel silver. Ordered a knee walker to keep her completely off loaded off of the left foot, but it was not covered by insurance. Instructed her to try and refrain from walking on her left foot. She does have a wheelchair at home. She just got a new CAM walking boot. She had an MRI of that foot 08/22/18. Referring her to Dr. Edgar for evaluation of the left plantar ulcer that is becoming larger in size. Progress of Wound: Right lateral ankle improved. Left plantar ulcer increased size with undermining. - Physical Exam Vital Signs Temp Pulse Resp BP 97.5 F L 110 H 18 143/71 H 02/13/19 11:16 02/13/19 11:16 02/13/19 11:16 02/13/19 11:16 General: Alert, Oriented x3, Cooperative HEENT: Atraumatic Oral: Moist Mucosa Lungs: Normal air movement Cardiovascular: Regular rate Extremities: Capillary Refill Less than 3 Seconds, Diminished Peripheral Pulses Skin: Ulcer/ Wound - Right lateral ankle and left plantar ulcer Wound Measurements and Assessment WC - Nurse 1 - General Ulcer Measurement Start: 02/13/19 11:16 Freq: Status: Active Protocol: Activity Type Activity Date Activity User E-Sign Co-Sign Detail Recorded Client Recorded Date Recorded By Document 02/13/19 11:16 LISSY [id number] 02/13/19 11:21 LISSY 02/13/19 11:16 Wound Center Nurse 1 [Ulcer Assessment] #5 Left Lateral Plantar -Combined with other wound No -Current Size (cm) - Length 0.9 -Current Size (cm) - Width 1.8 -Current Size (cm) - Depth 1.8 -Total Square Cm 1.62 -Photo Taken No -Epithelialization None Present -Tunneling No -Undermining/Tunneling No -Circular Undermining No -Exudate Amt Medium -Exudate Type Serosanguineous -Wound Margin Flat & Intact -Granulation Amt Large (67-100%) -Granulation Quality Red -Slough/Fibrin Yes -Necrosis Amt Small (1-33%) -Necrotic Tissue Type Adherent Slough -Structure Exposed N/A -Texture (Natacha-wound Skin Appearance) Assessed Callus -Moisture (Natacha-wound Skin Appearance Assessed ) Dry/Scaly -Color (Natacha-wound Skin Appearance) Assessed -Temperature (Natacha-wound Skin No Abnormality Appearance) (Pt Warm) -Tenderness on Palpation (Natacha-wound No Skin Appearance) -Ulcer Cleansing Wound Cleanser -Foul Odor after Cleansing No -Anesthetic Used 4% Lidocaine Solution #4 Right Lateral Malleolus-Post Op -Combined with other wound No -Current Size (cm) - Length 7.3 -Current Size (cm) - Width 5.0 -Current Size (cm) - Depth 0.3 -Total Square Cm 36.50 -Epithelialization Small 1-33% -Tunneling No -Undermining/Tunneling No -Circular Undermining No -Exudate Amt Large -Exudate Type Serosanguineous -Wound Margin Flat & Intact -Granulation Amt Large (67-100%) -Granulation Quality Red -Slough/Fibrin Yes -Necrosis Amt Small (1-33%) -Necrotic Tissue Type Adherent Slough -Structure Exposed N/A -Texture (Natacha-wound Skin Appearance) Assessed Localized Edema -Moisture (Natacha-wound Skin Appearance Assessed ) Dry/Scaly -Color (Natacha-wound Skin Appearance) Assessed -Temperature (Natacha-wound Skin No Abnormality Appearance) (Pt Warm) -Tenderness on Palpation (Natacha-wound No Skin Appearance) -Ulcer Cleansing Wound Cleanser -Foul Odor after Cleansing No -Anesthetic Used 4% Lidocaine Solution 3. left hand dorsum -Combined with other wound No -Current Size (cm) - Length 0 -Current Size (cm) - Width 0 -Current Size (cm) - Depth 0 -Total Square Cm 0 -Photo Taken Yes -Epithelialization Large 67-100% -Tunneling No -Undermining/Tunneling No -Circular Undermining No [Edema Assessment] -Lower Limb Edema Present No WC - Nurse 2 - General Ulcer CM Notes Start: 02/13/19 11:16 Freq: Status: Active Protocol: Activity Type Activity Date Activity User E-Sign Co-Sign Detail Recorded Client Recorded Date Recorded By Document 02/13/19 11:31 LISSY [id number] 02/13/19 11:45 LISSY 02/13/19 11:31 Wound Center Nurse 2 [Procedure/Treatment] #5 Left Lateral Plantar -Time 11:32 -Correct Patient Yes -Correct Side, Site, Position Yes -Correct Procedure Yes -Procedure Performed Yes -Type of Procedure Debridement -Clinical Debridement Subcutaneous -Post Debridement Size (cm) - Length 1.8 -Post Debridement Size (cm) - Width 1.8 -Post Debridement Size (cm) - Depth 0.7 -Total Square Cm 3.24 -Wound/Ulcer Outcome Not Healed -Ulcer Cleansing Rinsed/ Irrigated with Saline -Foul Odor after Cleansing No -Bioengineered Tissue No -Bleeding Controlled with Pressure -Offloading Yes -Type of Offloading Camwalker -Treatment Response Procedure Tolerated Well #4 Right Lateral Malleolus-Post Op -Time 11:32 -Correct Patient Yes -Correct Side, Site, Position Yes -Correct Procedure Yes -Procedure Performed Yes -Type of Procedure Debridement -Clinical Debridement Subcutaneous -Post Debridement Size (cm) - Length 7.8 -Post Debridement Size (cm) - Width 5.3 -Post Debridement Size (cm) - Depth 0.3 -Total Square Cm 41.34 -Wound/Ulcer Outcome Not Healed -Ulcer Cleansing Rinsed/ Irrigated with Saline -Foul Odor after Cleansing No -Bioengineered Tissue Yes -Type of bioengineered Tissue Apligraf -Expiration Date 02/17/19 -Product Lot Number [id number] -Percent Used 100 -Saline Lot Number [id number] -Bleeding Controlled with Pressure -Offloading Yes -Type of Offloading Surgical Shoe -Treatment Response Procedure Tolerated Well [See Physician Procedure note for Specifics] Pain Scale: 0-10 Numeric [Pain] -Is Patient Pain Free? Yes Musculoskeletal: No Tenderness to Palpation of Joints or Extremities Neurological: Neuro grossly intact Psych/Mental Status: Normal Affect, Appropriate Debridement Note Post-Debridement Measurements/Treatment WC - Nurse 2 - General Ulcer CM Notes Start: 02/13/19 11:16 Freq: Status: Active Protocol: Activity Type Activity Date Activity User E-Sign Co-Sign Detail Recorded Client Recorded Date Recorded By Document 02/13/19 11:31 LISSY [id number] 02/13/19 11:45 LISSY 02/13/19 11:31 Wound Center Nurse 2 #5 Left Lateral Plantar -Time 11:32 -Correct Patient Yes -Correct Side, Site, Position Yes -Correct Procedure Yes -Procedure Performed Yes -Type of Procedure Debridement -Clinical Debridement Subcutaneous -Post Debridement Size (cm) - Length 1.8 -Post Debridement Size (cm) - Width 1.8 -Post Debridement Size (cm) - Depth 0.7 -Total Square Cm 3.24 -Wound/Ulcer Outcome Not Healed -Ulcer Cleansing Rinsed/ Irrigated with Saline -Foul Odor after Cleansing No -Bioengineered Tissue No -Bleeding Controlled with Pressure -Offloading Yes -Type of Offloading Camwalker -Treatment Response Procedure Tolerated Well #4 Right Lateral Malleolus-Post Op -Time 11:32 -Correct Patient Yes -Correct Side, Site, Position Yes -Correct Procedure Yes -Procedure Performed Yes -Type of Procedure Debridement -Clinical Debridement Subcutaneous -Post Debridement Size (cm) - Length 7.8 -Post Debridement Size (cm) - Width 5.3 -Post Debridement Size (cm) - Depth 0.3 -Total Square Cm 41.34 -Wound/Ulcer Outcome Not Healed -Ulcer Cleansing Rinsed/ Irrigated with Saline -Foul Odor after Cleansing No -Bioengineered Tissue Yes -Type of bioengineered Tissue Apligraf -Expiration Date 02/17/19 -Product Lot Number [id number] -Percent Used 100 -Saline Lot Number [id number] -Bleeding Controlled with Pressure -Offloading Yes -Type of Offloading Surgical Shoe -Treatment Response Procedure Tolerated Well Pain Scale: 0-10 Numeric Is Patient Pain Free? Yes Wound debrided: Left lateral ankle Laterality: Left Type of Debridement: Excisional debridement Anesthesia Used: 4% Lidocaine Solution Depth: Down to and including healthy tissue, in the subcutaneous layer Percentage of wound debrided: 100 Instrument Used: 7mm curette Tissue Removed: Subcutaneous tissue and slough Severity: Fat Layer Exposed Amount of bleeding with debridement: Mild Bleeding Controlled with: Pressure Patient tolerated procedure well - Additional Wound Wound debrided: Left plantar ulcer Laterality: Left Type of Debridement: Excisional debridement Anesthesia Used: 4% Lidocaine Solution Depth: Down to and including healthy tissue, in the subcutaneous layer Percentage of wound debrided: 100 Instrument Used: 3mm curette Tissue Removed: Subcutaneous tissue and slough Severity: Limited To Skin Breakdown Amount of bleeding with debridement: Mild Bleeding Controlled with: Pressure Patient tolerated procedure: Patient tolerated procedure well Assessment/Plan Active Problems (Last Updated 01/30/19 @ 09:58 by RONNI ZarateC) Hemoglobin A1c greater than 9.0% (Chronic) 12.2 Diabetic ulcer of right ankle (Chronic) diabetic ulcer abscess right lateral malleolus Abscess of right lower leg (Chronic) diabetic ulcer abscess right lateral malleolus Diabetic foot ulcer associated with type 2 diabetes mellitus (Chronic) Type II diabetes mellitus, uncontrolled (Chronic) Assessment: Diabetic ulcer of right ankle -diabetic ulcer abscess right lateral malleolus. Diabetic foot ulcer associated with type 2 diabetes mellitus. Hemoglobin A1c greater than 9.0%. Type II diabetes mellitus, uncontrolled Plan: Patient was evaluated in the wound center today. Plan of care was reviewed with patient and her daughter. Her prealbumin 9.1 from 12/28/18. HgA1C 12.2% on 12/21/18. Subcutaneous debridement was performed today. She tolerated it well. Her wound care to her right lateral malleolus is a wound VAC at 150 mmHg. We applied Appligraft #2 covered with a wound veil which was secured with steri strips today. Used 100% of the product. It is to be applied under the wound VAC. Dr. Allen has been managing her left foot plantar ulcer with srinivas. The patient would like us to manage the left plantar ulcer at this time, just to help decrease the number of appointments her daughter needs to take her to. I spoke with Dr. Allen and he is fine with this decision and stated that patient is very non compliant with her diabetes and her wound care. She was approved for Regranix to her left plantar diabetic foot ulcer and started it when she received it. She presented last week with increased undermining of the left plantar ulcer. Her daughter is convinced it is because she was allowed to shower. We stopped the Regranix and the showering and started aquacel silver packed into the undermining. Ordered a knee scooter but it is not covered by insurance. She has a wheelchair at home but does not use it. Encouraged her to try not to put any weight on that area. She received a new Cam walker this past week. MRI of her left foot on 08/22/18. Encouraged her to increase her protein intake. Encouraged her to try and keep her blood sugars under control. Her daughter would like the patient to see endocrinology, referral given. Will refer her to Dr. Edgar for further evaluation of the left plantar ulcer. It may need further surgical debridement. If Dr. Edgar would like to continue to manage the left plantar ulcer, she can apply the Appligraft to the left lateral ankle. Discussed the case with Dr. Taylor and he agrees with the plan of care. He would like to see the patient monthly to evaluate the right lateral ankle. Patient is to follow up in one week with Dr. Edgar for left plantar ulcer evaluation. Code Visit [id number]
--- NOTE | 2019-02-15 14:08 | WC ---
This nurse received a phone call from Yessy of [facility] concerning this patient. Yessy stated The patient removed her wound vac again and that they can no longer continue with her care Yessy reports at this time she is calling the patient and informing her that they are no longer going to provide wound care and to place a wet to dry dressing on her right ankle as she has done before until she can be seen here in the clinic. This nurse notified Yesenia FOURNIER of above. Yesenia informed this nurse that she will to speak with Dr. Taylor as to what we are to do.
[2019-02-16 11:21] VITALS: BP 136/79; PULSE 98; RESP 18; TEMP 36.4; BMI 29.0
[2019-02-21 15:50] VITALS: BP 128/68; PULSE 89; RESP 20; TEMP 37; BMI 29.0
--- NOTE | 2019-02-21 17:32 | PCM.WC.PN ---
(1) Ulcer of right lower extremity with fat layer exposed Status: Chronic Code(s): L97.912 - Non-pressure chronic ulcer of unspecified part of right lower leg with fat layer exposed (2) Chronic ulcer of left foot with fat layer exposed Status: Chronic Code(s): L97.522 - Non-pressure chronic ulcer of other part of left foot with fat layer exposed (3) Acquired varus deformity of right foot Status: Chronic Code(s): M21.171 - Varus deformity, not elsewhere classified, right ankle (4) Acquired varus deformity of left foot Status: Chronic Code(s): M21.172 - Varus deformity, not elsewhere classified, left ankle (5) Delayed wound healing Status: Chronic Code(s): T14.8XXD - Other injury of unspecified body region, subsequent encounter (6) Malnutrition Status: Chronic Code(s): E46 - Unspecified protein-calorie malnutrition (7) Diabetic foot ulcer associated with type 2 diabetes mellitus Status: Chronic Qualifiers: Code(s): E11.621 - Type 2 diabetes mellitus with foot ulcer; L97.509 - Non-pressure chronic ulcer of other part of unspecified foot with unspecified severity Type of Wound Date of Service: 02/21/19 Chief Complaint: Right ankle diabetic ulcer. left foot ulcer History of Wound: Patient had an I&D of her right lateral ankle infection on 12/22/[address] Allen. She was taken back to surgery on 12/27/[address] Taylor for a surgical preparation right lateral malleolus with incision and drainage and exicisional debridement necrotizing diabetic ulcer abscess (40 cm2). Her wound cultures from 12/27/18 grew Staphylococcu aureus. She was treated with Unasyn and sent to [facility] on Keflex and a wound VAC. On 12/28/18 her prealbumin was 9.1. On 12/21/18 her HgA1C was 12.2%. She now has home health to help with wound VAC changes. We applied Appligraft #2 with adaptic wound veil. today on her right lateral ankle. She did not bring her wound VAC to the clinic, will have home health apply it today. This should be beneficial to help with wound healing. She was seeing Dr. Aleln for a diabetic foot ulcer on the plantar surface, lateral aspect of her left foot that vanessa was being applied to daily. She would like to have us manage this ucler while she is coming to the wound center so she has one less appointment for her daughter to take her to. she has been using Regranix to the left plantar ulcer. It appears worse with undermining. She was recently switched to aquacel silver and advised to use a knee roller. Instructed her to try and refrain from walking on her left foot. She does have a wheelchair at home. She just got a new CAM walking boot. She had an MRI of that foot 08/22/18; this result is not viewable at [facility]. She denies fever, chills, nausea. She complains of restless leg syndrome. She has trouble staying off of her ulcers and walks. Progress of Wound: Stable bilateral - Physical Exam Vital Signs Temp Pulse Resp BP 98.6 F 89 20 H 128/68 H 02/21/19 15:50 02/21/19 15:50 02/21/19 15:50 02/21/19 15:50 General: Alert, Oriented x3, Cooperative HEENT: Atraumatic Extremities: No cyanosis, Capillary Refill Less than 3 Seconds, No Calf Tenderness - Negative for comparison bilateral, Diminished Peripheral Pulses, Edema, - - Varus with rotation of bilateral limbs that is reducible at the ankle to foot level. Prominent fifth metatarsal head and lateral column left foot. Skin: Ulcer/ Wound - No purulence, erythema, streaking, odor, or infection bilateral. No probe to bone bilateral. Pulses are granular with spares fibrous tissue. The plantar left ulcer site is undermining significantly, - - The peripheral skin is hairless and atrophic bilateral Wound Measurements and Assessment - Nurse 1 - General Ulcer Measurement Start: 02/13/19 11:16 Freq: Status: Active Protocol: Activity Type Activity Date Activity User E-Sign Co-Sign Detail Recorded Client Recorded Date Recorded By Document 02/21/19 15:50 [id number] 02/21/19 15:53 02/21/19 15:50 Wound Center Nurse 1 [Ulcer Assessment] #5 Left Lateral Plantar -Combined with other wound No -Current Size (cm) - Length 1.7 -Current Size (cm) - Width 1.8 -Current Size (cm) - Depth 0.3 -Total Square Cm 3.06 -Photo Taken No -Epithelialization None Present -Tunneling No -Undermining/Tunneling Yes -Undermining/Tunneling Starts (O' 5 clock) -Undermining/Tunneling Ends (O'clock) 11 -Maximum Distance (cm) 1.5 -Circular Undermining No -Exudate Amt Large -Exudate Type Serous -Wound Margin Distinct, Outline Attached -Granulation Amt Large (67-100%) -Granulation Quality Vamo Red -Slough/Fibrin Yes -Necrosis Amt Large (67-100%) -Necrotic Tissue Type Adherent Slough -Texture (Natacha-wound Skin Appearance) Assessed Callus -Moisture (Natacha-wound Skin Appearance Maceration ) -Color (Natacha-wound Skin Appearance) No Abnormality Assessed -Temperature (Natacha-wound Skin No Abnormality Appearance) (Pt Warm) -Tenderness on Palpation (Natacha-wound Yes Skin Appearance) -Ulcer Cleansing Rinsed/ Irrigated with Saline -Foul Odor after Cleansing No -Anesthetic Used 4% Lidocaine Solution #4 Right Lateral Malleolus-Post Op -Combined with other wound No -Current Size (cm) - Length 6.6 -Current Size (cm) - Width 4.7 -Current Size (cm) - Depth 0.1 -Total Square Cm 31.02 -Photo Taken No -Epithelialization Small 1-33% -Tunneling No -Undermining/Tunneling No -Circular Undermining No -Exudate Amt Small -Exudate Type Serosanguineous -Wound Margin Distinct, Outline Attached -Granulation Amt Large (67-100%) -Granulation Quality Vamo Red -Slough/Fibrin Yes -Necrosis Amt Large (67-100%) -Necrotic Tissue Type Adherent Slough -Texture (Natacha-wound Skin Appearance) Callus -Moisture (Natacha-wound Skin Appearance Maceration ) -Color (Natacha-wound Skin Appearance) No Abnormality -Temperature (Natacha-wound Skin No Abnormality Appearance) (Pt Warm) -Tenderness on Palpation (Natacha-wound Yes Skin Appearance) -Ulcer Cleansing Rinsed/ Irrigated with Saline -Foul Odor after Cleansing No -Anesthetic Used 4% Lidocaine Solution [Edema Assessment] -Lower Limb Edema Present NA WC - Nurse 2 - General Ulcer CM Notes Start: 02/13/19 11:16 Freq: Status: Active Protocol: Activity Type Activity Date Activity User E-Sign Co-Sign Detail Recorded Client Recorded Date Recorded By Document 02/21/19 16:48 AN [id number] 02/21/19 16:57 AN 02/21/19 16:48 Wound Center Nurse 2 [Procedure/Treatment] #5 Left Lateral Plantar -Time 16:49 -Correct Patient Yes -Correct Side, Site, Position Yes -Correct Procedure Yes -Procedure Performed Yes -Type of Procedure Debridement -Clinical Debridement Subcutaneous -Post Debridement Size (cm) - Length 1.8 -Post Debridement Size (cm) - Width 1.9 -Post Debridement Size (cm) - Depth 0.3 -Total Square Cm 3.42 -Wound/Ulcer Outcome Not Healed -Ulcer Cleansing Rinsed/ Irrigated with Saline -Foul Odor after Cleansing No -Bleeding Controlled with Pressure -Offloading Yes -Type of Offloading Camwalker -Treatment Response Procedure Tolerated Well #4 Right Lateral Malleolus-Post Op -Time 16:50 -Correct Patient Yes -Correct Side, Site, Position Yes -Correct Procedure Yes -Procedure Performed Yes -Type of Procedure Debridement -Clinical Debridement Subcutaneous -Post Debridement Size (cm) - Length 6.7 -Post Debridement Size (cm) - Width 4.8 -Post Debridement Size (cm) - Depth 0.1 -Total Square Cm 32.16 -Wound/Ulcer Outcome Not Healed -Ulcer Cleansing Rinsed/ Irrigated with Saline -Foul Odor after Cleansing No -Offloading Yes -Type of Offloading Camwalker -Treatment Response Procedure Tolerated Well [See Physician Procedure note for Specifics] Pain Scale: 0-10 Numeric [Pain] -Is Patient Pain Free? Yes Musculoskeletal: No Tenderness to Palpation of Joints or Extremities, Muscle Wasting Neurological: - - Lack of normal epicritic sensation light touch consistent with neuropathy bilaterally Psych/Mental Status: Normal Affect, Appropriate Debridement Note Post-Debridement Measurements/Treatment WC - Nurse 2 - General Ulcer CM Notes Start: 02/13/19 11:16 Freq: Status: Active Protocol: Activity Type Activity Date Activity User E-Sign Co-Sign Detail Recorded Client Recorded Date Recorded By Document 02/13/19 11:31 [email or web address] [id number] 02/13/19 11:45 Document 02/21/19 16:48 AN [id number] 02/21/19 16:57 AN 02/13/19 02/21/19 11:31 16:48 Wound Center Nurse 2 #5 Left Lateral Plantar -Time 11:32 16:49 -Correct Patient Yes Yes -Correct Side, Site, Position Yes Yes -Correct Procedure Yes Yes -Procedure Performed Yes Yes -Type of Procedure Debridement Debridement -Clinical Debridement Subcutaneous Subcutaneous -Post Debridement Size (cm) - Length 1.8 1.8 -Post Debridement Size (cm) - Width 1.8 1.9 -Post Debridement Size (cm) - Depth 0.7 0.3 -Total Square Cm 3.24 3.42 -Wound/Ulcer Outcome Not Healed Not Healed -Ulcer Cleansing Rinsed/ Rinsed/ Irrigated with Irrigated with Saline Saline -Foul Odor after Cleansing No No -Bioengineered Tissue No -Bleeding Controlled with Pressure Pressure -Offloading Yes Yes -Type of Offloading Camwalker Camwalker -Treatment Response Procedure Procedure Tolerated Well Tolerated Well #4 Right Lateral Malleolus-Post Op -Time 11:32 16:50 -Correct Patient Yes Yes -Correct Side, Site, Position Yes Yes -Correct Procedure Yes Yes -Procedure Performed Yes Yes -Type of Procedure Debridement Debridement -Clinical Debridement Subcutaneous Subcutaneous -Post Debridement Size (cm) - Length 7.8 6.7 -Post Debridement Size (cm) - Width 5.3 4.8 -Post Debridement Size (cm) - Depth 0.3 0.1 -Total Square Cm 41.34 32.16 -Wound/Ulcer Outcome Not Healed Not Healed -Ulcer Cleansing Rinsed/ Rinsed/ Irrigated with Irrigated with Saline Saline -Foul Odor after Cleansing No No -Bioengineered Tissue Yes -Type of bioengineered Tissue Apligraf -Expiration Date 02/17/19 -Product Lot Number [id number] -Percent Used 100 -Saline Lot Number [id number] -Bleeding Controlled with Pressure -Offloading Yes Yes -Type of Offloading Surgical Shoe Camwalker -Treatment Response Procedure Procedure Tolerated Well Tolerated Well Pain Scale: 0-10 Numeric Is Patient Pain Free? Yes Yes Wound debrided: lateral ankle Laterality: Right Wound Grade/Stage: grade 1 Type of Debridement: Excisional debridement Anesthesia Used: 5% Lidocaine Gel Depth: in the subcutaneous layer Percentage of wound debrided: 100 Instrument Used: #15 blade Tissue Removed: fibrous, devitalized subcutaneous, biofillm ,slough Severity: Fat Layer Exposed Amount of bleeding with debridement: Mild Bleeding Controlled with: Pressure Patient tolerated procedure well - Additional Wound Wound debrided: plantar foot Laterality: Left Wound Grade/Stage: grade 1 Type of Debridement: Excisional debridement Anesthesia Used: 5% Lidocaine Gel Depth: in the subcutaneous layer Percentage of wound debrided: 100 Instrument Used: #15 blade Tissue Removed: fibrous, devitalized subcutaneous, biofillm ,slough Severity: Fat Layer Exposed Amount of bleeding with debridement: Mild Bleeding Controlled with: Pressure Patient tolerated procedure: Patient tolerated procedure well Assessment/Plan Assessment: Diabetic ulcer of right ankle - diabetic ulcer abscess right lateral malleolus. Diabetic foot ulcer associated with type 2 diabetes mellitus. Hemoglobin A1c greater than 9.0%. Type II diabetes mellitus, uncontrolled. varus deformity bilateral lower extremities. malnutrition suspected. delayed healing Plan: Patient was evaluated in the wound center today. Subcutaneous excisional debridement was performed using clinical panel. Her labs were reviewed as were her previous wound care center notes in [facility]. She has had previous intervention with Dr. Florez consisting of standard wound care elements as well as advanced wound care product application. Her prealbumin 9.1 from 12/28/18. HgA1C 12.2% on 12/21/18. Her wound care to her right lateral malleolus is a wound VAC at 150 mmHg. Additional Apligraf will be considered; this is not available today. She was approved for Regranix to her left plantar diabetic foot ulcer and started it when she received it. She will continue to use Regranex and Vanessa on the left lower extremity. To continue knee roller use of left. There is concern due to the depth of this ulcer as well as undermining. She is reassured there is no probe to bone or purulence or odor. MRI of her left foot on 08/22/18 per chart review and this result will be recommended primary able to do this in [facility] at [facility]. She likely had this performed in outside facility. She was encouraged to increase her protein intake. She was also encouraged to try and keep her blood sugars under control. An endocrinology referral was previously recommended. Updated bilateral x-rays including right ankle and left foot were ordered today and she was advised to obtain these prior to her follow-up visit next week. Surgical debridement and further work-up for osteomyelitis will be considered to her status deterioration per chart review. The referral is appreciated. She will continue to follow-up with Dr. Taylor on a monthly basis.
--- NOTE | 2019-02-21 17:36 | PN.PCM_ITS ---
(1) Ulcer of right lower extremity with fat layer exposed Status: Chronic Code(s): L97.912 - Non-pressure chronic ulcer of unspecified part of right lower leg with fat layer exposed (2) Chronic ulcer of left foot with fat layer exposed Status: Chronic Code(s): L97.522 - Non-pressure chronic ulcer of other part of left foot with fat layer exposed (3) Acquired varus deformity of right foot Status: Chronic Code(s): M21.171 - Varus deformity, not elsewhere classified, right ankle (4) Acquired varus deformity of left foot Status: Chronic Code(s): M21.172 - Varus deformity, not elsewhere classified, left ankle (5) Delayed wound healing Status: Chronic Code(s): T14.8XXD - Other injury of unspecified body region, subsequent encounter (6) Malnutrition Status: Chronic Code(s): E46 - Unspecified protein-calorie malnutrition (7) Diabetic foot ulcer associated with type 2 diabetes mellitus Status: Chronic Qualifiers: Code(s): E11.621 - Type 2 diabetes mellitus with foot ulcer; L97.509 - Non- pressure chronic ulcer of other part of unspecified foot with unspecified severity Type of Wound Date of Service: 02/21/19 Chief Complaint: Right ankle diabetic ulcer. left foot ulcer History of Wound: Patient had an I&D of her right lateral ankle infection on 12/22/[address] Allen. She was taken back to surgery on 12/27/[address] Taylor for a surgical preparation right lateral malleolus with incision and drainage and exicisional debridement necrotizing diabetic ulcer abscess (40 cm2). Her wound cultures from 12/27/18 grew Staphylococcu aureus. She was treated with Unasyn and sent to [place] on Keflex and a wound VAC. On 12/28/18 her prealbumin was 9.1. On 12/21/18 her HgA1C was 12.2%. She now has home health to help with wound VAC changes. We applied Appligraft #2 with adaptic wound veil. today on her right lateral ankle. She did not bring her wound VAC to the clinic, will have home health apply it today. This should be beneficial to help with wound healing. She was seeing Dr. Allen for a diabetic foot ulcer on the plantar surface, lateral aspect of her left foot that vanessa was being applied to daily. She would like to have us manage this ucler while she is coming to the wound center so she has one less appointment for her daughter to take her to. she has been using Regranix to the left plantar ulcer. It appears worse with undermining. She was recently switched to aquacel silver and advised to use a knee roller. Instructed her to try and refrain from walking on her left foot. She does have a wheelchair at home. She just got a new CAM walking boot. She had an MRI of that foot 08/22/18; this result is not viewable at [facility]. She denies fever, chills, nausea. She complains of restless leg syndrome. She has trouble staying off of her ulcers and walks. Progress of Wound: Stable bilateral - Physical Exam Vital Signs Temp Pulse Resp BP 98.6 F 89 20 H 128/68 H 02/21/19 15:50 02/21/19 15:50 02/21/19 15:50 02/21/19 15:50 General: Alert, Oriented x3, Cooperative HEENT: Atraumatic Extremities: No cyanosis, Capillary Refill Less than 3 Seconds, No Calf Tenderness - Negative for comparison bilateral, Diminished Peripheral Pulses, Edema, - - Varus with rotation of bilateral limbs that is reducible at the ankle to foot level. Prominent fifth metatarsal head and lateral column left foot. Skin: Ulcer/ Wound - No purulence, erythema, streaking, odor, or infection bilateral. No probe to bone bilateral. Pulses are granular with spares fibrous tissue. The plantar left ulcer site is undermining significantly, - - The peripheral skin is hairless and atrophic bilateral Wound Measurements and Assessment - Nurse 1 - General Ulcer Measurement Start: 02/13/19 11:16 Freq: Status: Active Protocol: Activity Type Activity Date Activity User E-Sign Co-Sign Detail Recorded Client Recorded Date Recorded By Document 02/21/19 15:50 [id number] 02/21/19 15:53 02/21/19 15:50 Wound Center Nurse 1 [Ulcer Assessment] #5 Left Lateral Plantar -Combined with other wound No -Current Size (cm) - Length 1.7 -Current Size (cm) - Width 1.8 -Current Size (cm) - Depth 0.3 -Total Square Cm 3.06 -Photo Taken No -Epithelialization None Present -Tunneling No -Undermining/Tunneling Yes -Undermining/Tunneling Starts (O' 5 clock) -Undermining/Tunneling Ends (O'clock) 11 -Maximum Distance (cm) 1.5 -Circular Undermining No -Exudate Amt Large -Exudate Type Serous -Wound Margin Distinct, Outline Attached -Granulation Amt Large (67-100%) -Granulation Quality [place] Red -Slough/Fibrin Yes -Necrosis Amt Large (67-100%) -Necrotic Tissue Type Adherent Slough -Texture (Natacha-wound Skin Appearance) Assessed Callus -Moisture (Natacha-wound Skin Appearance Maceration ) -Color (Natacha-wound Skin Appearance) No Abnormality Assessed -Temperature (Natacha-wound Skin No Abnormality Appearance) (Pt Warm) -Tenderness on Palpation (Natacha-wound Yes Skin Appearance) -Ulcer Cleansing Rinsed/ Irrigated with Saline -Foul Odor after Cleansing No -Anesthetic Used 4% Lidocaine Solution #4 Right Lateral Malleolus-Post Op -Combined with other wound No -Current Size (cm) - Length 6.6 -Current Size (cm) - Width 4.7 -Current Size (cm) - Depth 0.1 -Total Square Cm 31.02 -Photo Taken No -Epithelialization Small 1-33% -Tunneling No -Undermining/Tunneling No -Circular Undermining No -Exudate Amt Small -Exudate Type Serosanguineous -Wound Margin Distinct, Outline Attached -Granulation Amt Large (67-100%) -Granulation Quality [place] Red -Slough/Fibrin Yes -Necrosis Amt Large (67-100%) -Necrotic Tissue Type Adherent Slough -Texture (Natacha-wound Skin Appearance) Callus -Moisture (Natacha-wound Skin Appearance Maceration ) -Color (Natacha-wound Skin Appearance) No Abnormality -Temperature (Natacha-wound Skin No Abnormality Appearance) (Pt Warm) -Tenderness on Palpation (Natacha-wound Yes Skin Appearance) -Ulcer Cleansing Rinsed/ Irrigated with Saline -Foul Odor after Cleansing No -Anesthetic Used 4% Lidocaine Solution [Edema Assessment] -Lower Limb Edema Present NA WC - Nurse 2 - General Ulcer CM Notes Start: 02/13/19 11:16 Freq: Status: Active Protocol: Activity Type Activity Date Activity User E-Sign Co-Sign Detail Recorded Client Recorded Date Recorded By Document 02/21/19 16:48 AN [id number] 02/21/19 16:57 AN 02/21/19 16:48 Wound Center Nurse 2 [Procedure/Treatment] #5 Left Lateral Plantar -Time 16:49 -Correct Patient Yes -Correct Side, Site, Position Yes -Correct Procedure Yes -Procedure Performed Yes -Type of Procedure Debridement -Clinical Debridement Subcutaneous -Post Debridement Size (cm) - Length 1.8 -Post Debridement Size (cm) - Width 1.9 -Post Debridement Size (cm) - Depth 0.3 -Total Square Cm 3.42 -Wound/Ulcer Outcome Not Healed -Ulcer Cleansing Rinsed/ Irrigated with Saline -Foul Odor after Cleansing No -Bleeding Controlled with Pressure -Offloading Yes -Type of Offloading Camwalker -Treatment Response Procedure Tolerated Well #4 Right Lateral Malleolus-Post Op -Time 16:50 -Correct Patient Yes -Correct Side, Site, Position Yes -Correct Procedure Yes -Procedure Performed Yes -Type of Procedure Debridement -Clinical Debridement Subcutaneous -Post Debridement Size (cm) - Length 6.7 -Post Debridement Size (cm) - Width 4.8 -Post Debridement Size (cm) - Depth 0.1 -Total Square Cm 32.16 -Wound/Ulcer Outcome Not Healed -Ulcer Cleansing Rinsed/ Irrigated with Saline -Foul Odor after Cleansing No -Offloading Yes -Type of Offloading Camwalker -Treatment Response Procedure Tolerated Well [See Physician Procedure note for Specifics] Pain Scale: 0-10 Numeric [Pain] -Is Patient Pain Free? Yes Musculoskeletal: No Tenderness to Palpation of Joints or Extremities, Muscle Wasting Neurological: - - Lack of normal epicritic sensation light touch consistent with neuropathy bilaterally Psych/Mental Status: Normal Affect, Appropriate Debridement Note Post-Debridement Measurements/Treatment WC - Nurse 2 - General Ulcer CM Notes Start: 02/13/19 11:16 Freq: Status: Active Protocol: Activity Type Activity Date Activity User E-Sign Co-Sign Detail Recorded Client Recorded Date Recorded By Document 02/13/19 11:31 [email or web address] [id number] 02/13/19 11:45 Document 02/21/19 16:48 AN [id number] 02/21/19 16:57 AN 02/13/19 02/21/19 11:31 16:48 Wound Center Nurse 2 #5 Left Lateral Plantar -Time 11:32 16:49 -Correct Patient Yes Yes -Correct Side, Site, Position Yes Yes -Correct Procedure Yes Yes -Procedure Performed Yes Yes -Type of Procedure Debridement Debridement -Clinical Debridement Subcutaneous Subcutaneous -Post Debridement Size (cm) - Length 1.8 1.8 -Post Debridement Size (cm) - Width 1.8 1.9 -Post Debridement Size (cm) - Depth 0.7 0.3 -Total Square Cm 3.24 3.42 -Wound/Ulcer Outcome Not Healed Not Healed -Ulcer Cleansing Rinsed/ Rinsed/ Irrigated with Irrigated with Saline Saline -Foul Odor after Cleansing No No -Bioengineered Tissue No -Bleeding Controlled with Pressure Pressure -Offloading Yes Yes -Type of Offloading Camwalker Camwalker -Treatment Response Procedure Procedure Tolerated Well Tolerated Well #4 Right Lateral Malleolus-Post Op -Time 11:32 16:50 -Correct Patient Yes Yes -Correct Side, Site, Position Yes Yes -Correct Procedure Yes Yes -Procedure Performed Yes Yes -Type of Procedure Debridement Debridement -Clinical Debridement Subcutaneous Subcutaneous -Post Debridement Size (cm) - Length 7.8 6.7 -Post Debridement Size (cm) - Width 5.3 4.8 -Post Debridement Size (cm) - Depth 0.3 0.1 -Total Square Cm 41.34 32.16 -Wound/Ulcer Outcome Not Healed Not Healed -Ulcer Cleansing Rinsed/ Rinsed/ Irrigated with Irrigated with Saline Saline -Foul Odor after Cleansing No No -Bioengineered Tissue Yes -Type of bioengineered Tissue Apligraf -Expiration Date 02/17/19 -Product Lot Number [id number] -Percent Used 100 -Saline Lot Number [id number] -Bleeding Controlled with Pressure -Offloading Yes Yes -Type of Offloading Surgical Shoe Camwalker -Treatment Response Procedure Procedure Tolerated Well Tolerated Well Pain Scale: 0-10 Numeric Is Patient Pain Free? Yes Yes Wound debrided: lateral ankle Laterality: Right Wound Grade/Stage: grade 1 Type of Debridement: Excisional debridement Anesthesia Used: 5% Lidocaine Gel Depth: in the subcutaneous layer Percentage of wound debrided: 100 Instrument Used: #15 blade Tissue Removed: fibrous, devitalized subcutaneous, biofillm ,slough Severity: Fat Layer Exposed Amount of bleeding with debridement: Mild Bleeding Controlled with: Pressure Patient tolerated procedure well - Additional Wound Wound debrided: plantar foot Laterality: Left Wound Grade/Stage: grade 1 Type of Debridement: Excisional debridement Anesthesia Used: 5% Lidocaine Gel Depth: in the subcutaneous layer Percentage of wound debrided: 100 Instrument Used: #15 blade Tissue Removed: fibrous, devitalized subcutaneous, biofillm ,slough Severity: Fat Layer Exposed Amount of bleeding with debridement: Mild Bleeding Controlled with: Pressure Patient tolerated procedure: Patient tolerated procedure well Assessment/Plan Assessment: Diabetic ulcer of right ankle - diabetic ulcer abscess right lateral malleolus. Diabetic foot ulcer associated with type 2 diabetes mellitus. Hemoglobin A1c greater than 9.0%. Type II diabetes mellitus, uncontrolled. varus deformity bilateral lower extremities. malnutrition suspected. delayed healing Plan: Patient was evaluated in the wound center today. Subcutaneous excisional debridement was performed using clinical panel. Her labs were reviewed as were her previous wound care center notes in [facility]. She has had previous intervention with Dr. Florez consisting of standard wound care elements as well as advanced wound care product application. Her prealbumin 9.1 from 12/28/18. HgA1C 12.2% on 12/21/18. Her wound care to her right lateral malleolus is a wound VAC at 150 mmHg. Additional Apligraf will be considered; this is not available today. She was approved for Regranix to her left plantar diabetic foot ulcer and started it when she received it. She will continue to use Regranex and Vanessa on the left lower extremity. To continue knee roller use of left. There is concern due to the depth of this ulcer as wel l as undermining. She is reassured there is no probe to bone or purulence or odor. MRI of her left foot on 08/22/18 per chart review and this result will be recommended primary able to do this in [facility] at [facility]. She likely had this performed in outside facility. She was encouraged to increase her protein intake. She was also encouraged to try and keep her blood sugars under control. An endocrinology referral was previously recommended. Updated bilateral x-rays including right ankle and left foot were ordered today and she was advised to obtain these prior to her follow-up visit next week. Surgical debridement and further work-up for osteomyelitis will be considered to her status deterioration per chart review. The referral is appreciated. She will continue to follow-up with Dr. Taylor on a monthly basis.
[2019-03-01 11:47] VITALS: BP 146/81; PULSE 86; RESP 18; TEMP 36.7; BMI 29.0
--- NOTE | 2019-03-01 12:56 | PCM.WC.PN ---
(1) Chronic ulcer of left foot with fat layer exposed Status: Chronic Current Visit: Yes Code(s): L97.522 - Non-pressure chronic ulcer of other part of left foot with fat layer exposed (2) Diabetic foot ulcer associated with type 2 diabetes mellitus Status: Chronic Current Visit: Yes Qualifiers: Code(s): E11.621 - Type 2 diabetes mellitus with foot ulcer; L97.509 - Non-pressure chronic ulcer of other part of unspecified foot with unspecified severity (3) Diabetic ulcer of right ankle Status: Chronic Current Visit: Yes Code(s): E11.622 - Type 2 diabetes mellitus with other skin ulcer; L97.319 - Non-pressure chronic ulcer of right ankle with unspecified severity Comment: diabetic ulcer abscess right lateral malleolus (4) Ulcer of right lower extremity with fat layer exposed Status: Chronic Current Visit: Yes Code(s): L97.912 - Non-pressure chronic ulcer of unspecified part of right lower leg with fat layer exposed Type of Wound Chief Complaint: Right ankle diabetic ulcer. left foot ulcer History of Wound: Patient had an I&D of her right lateral ankle infection on 12/22/[address] Allen. She was taken back to surgery on 12/27/[address] Taylor for a surgical preparation right lateral malleolus with incision and drainage and exicisional debridement necrotizing diabetic ulcer abscess (40 cm2). Her wound cultures from 12/27/18 grew Staphylococcu aureus. She was treated with Unasyn and sent to [place] on Keflex and a wound VAC. On 12/28/18 her prealbumin was 9.1. On 12/21/18 her HgA1C was 12.2%. She now has home health to help with wound VAC changes. We applied Appligraft #2 with adaptic wound veil. today on her right lateral ankle. She did not bring her wound VAC to the clinic, will have home health apply it today. This should be beneficial to help with wound healing. She was seeing Dr. Allen for a diabetic foot ulcer on the plantar surface, lateral aspect of her left foot that srinivas was being applied to daily. She would like to have us manage this ucler while she is coming to the wound center so she has one less appointment for her daughter to take her to. she has been using Regranix to the left plantar ulcer. It appears worse with undermining. She was recently switched to aquacel silver and advised to use a knee roller. Instructed her to try and refrain from walking on her left foot. She does have a wheelchair at home. She just got a new CAM walking boot. She had an MRI of that foot 08/22/18; this result is not viewable at [facility]. She denies fever, chills, nausea. She complains of restless leg syndrome. She has trouble staying off of her ulcers and walks. Progress of Wound: Courtesy visit for Dr. Edgar. Being ,managed bilateral foot ulcers. No new concerns at this time. - Physical Exam Vital Signs Temp Pulse Resp BP 98.0 F 86 18 146/81 H 03/01/19 11:47 03/01/19 11:47 03/01/19 11:47 03/01/19 11:47 General: Alert, Oriented x3, Cooperative, No apparent distress HEENT: Atraumatic, Normocephalic Oral: Moist Mucosa Neck: Supple Lungs: Normal air movement Extremities: No cyanosis Skin: Ulcer/ Wound Wound Measurements and Assessment WC - Nurse 1 - General Ulcer Measurement Start: 02/13/19 11:16 Freq: Status: Active Protocol: Activity Type Activity Date Activity User E-Sign Co-Sign Detail Recorded Client Recorded Date Recorded By Document 03/01/19 11:47 LISSY [id number] 03/01/19 11:56 LISSY 03/01/19 11:47 Wound Center Nurse 1 [Ulcer Assessment] #5 Left Lateral Plantar -Combined with other wound No -Current Size (cm) - Length 2.2 -Current Size (cm) - Width 2 -Current Size (cm) - Depth 2.0 -Total Square Cm 4.4 -Photo Taken No -Epithelialization None Present -Tunneling No -Undermining/Tunneling No -Circular Undermining No -Exudate Amt Large -Exudate Type Serosanguineous -Wound Margin Flat & Intact -Granulation Amt Large (67-100%) -Granulation Quality Red -Slough/Fibrin Yes -Necrosis Amt Small (1-33%) -Necrotic Tissue Type Adherent Slough -Structure Exposed N/A -Texture (Natacha-wound Skin Appearance) Assessed Callus -Moisture (Natacha-wound Skin Appearance Assessed ) Dry/Scaly -Color (Natacha-wound Skin Appearance) Assessed -Temperature (Natacha-wound Skin No Abnormality Appearance) (Pt Warm) -Tenderness on Palpation (Natacha-wound No Skin Appearance) -Ulcer Cleansing Wound Cleanser -Foul Odor after Cleansing No -Anesthetic Used 4% Lidocaine Solution #4 Right Lateral Malleolus-Post Op -Combined with other wound No -Current Size (cm) - Length 5.8 -Current Size (cm) - Width 3.7 -Current Size (cm) - Depth 0.1 -Total Square Cm 21.46 -Photo Taken No -Epithelialization Small 1-33% -Tunneling No -Undermining/Tunneling No -Circular Undermining No -Exudate Amt Medium -Exudate Type Serosanguineous -Wound Margin Flat & Intact -Granulation Amt Large (67-100%) -Granulation Quality Henry -Slough/Fibrin Yes -Necrosis Amt Small (1-33%) -Necrotic Tissue Type Adherent Slough -Structure Exposed N/A -Texture (Natacha-wound Skin Appearance) Assessed Localized Edema -Moisture (Natacha-wound Skin Appearance Assessed ) Dry/Scaly -Color (Natacha-wound Skin Appearance) Assessed -Temperature (Natacha-wound Skin No Abnormality Appearance) (Pt Warm) -Tenderness on Palpation (Natacha-wound No Skin Appearance) -Ulcer Cleansing Wound Cleanser -Foul Odor after Cleansing No -Anesthetic Used 4% Lidocaine Solution [Edema Assessment] -Lower Limb Edema Present No WC - Nurse 2 - General Ulcer CM Notes Start: 02/13/19 11:16 Freq: Status: Active Protocol: Activity Type Activity Date Activity User E-Sign Co-Sign Detail Recorded Client Recorded Date Recorded By Document 03/01/19 12:25 MW [id number] 03/01/19 12:33 MW 03/01/19 12:25 Wound Center Nurse 2 [Procedure/Treatment] #5 Left Lateral Plantar -Time 12:25 -Correct Patient Yes -Correct Side, Site, Position Yes -Correct Procedure Yes -Procedure Performed Yes -Type of Procedure Debridement -Clinical Debridement Subcutaneous -Post Debridement Size (cm) - Length 2.0 -Post Debridement Size (cm) - Width 2.0 -Post Debridement Size (cm) - Depth 1.6 -Total Square Cm 4.00 -Wound/Ulcer Outcome Not Healed -Ulcer Cleansing Rinsed/ Irrigated with Saline -Foul Odor after Cleansing No -Bioengineered Tissue No -Bleeding Controlled with Pressure -Offloading No -Treatment Response Procedure Tolerated Well #4 Right Lateral Malleolus-Post Op -Time 12:26 -Correct Patient Yes -Correct Side, Site, Position Yes -Correct Procedure Yes -Procedure Performed Yes -Type of Procedure Debridement -Clinical Debridement Subcutaneous -Post Debridement Size (cm) - Length 6.5 -Post Debridement Size (cm) - Width 4.0 -Post Debridement Size (cm) - Depth 0.2 -Total Square Cm 26.00 -Wound/Ulcer Outcome Not Healed -Ulcer Cleansing Rinsed/ Irrigated with Saline -Foul Odor after Cleansing No -Bioengineered Tissue Yes -Type of bioengineered Tissue Apligraf -Expiration Date 03/10/19 -Product Lot Number [id number] -Percent Used 100 -Saline Lot Number [id number] -Bleeding Controlled with Pressure -Offloading No -Treatment Response Procedure Tolerated Well [See Physician Procedure note for Specifics] Pain Scale: 0-10 Numeric [Pain] -Is Patient Pain Free? Yes Musculoskeletal: No Muscle Wasting Neurological: Cranial nerves II-XII grossly intact Psych/Mental Status: Normal Affect Debridement Note Post-Debridement Measurements/Treatment WC - Nurse 2 - General Ulcer CM Notes Start: 02/13/19 11:16 Freq: Status: Active Protocol: Activity Type Activity Date Activity User E-Sign Co-Sign Detail Recorded Client Recorded Date Recorded By Document 02/13/19 11:31 [id number] 02/13/19 11:45 JF Document 02/21/19 16:48 AN [id number] 02/21/19 16:57 AN Document 03/01/19 12:25 MW [id number] 03/01/19 12:33 MW 02/13/19 02/21/19 03/01/19 11:31 16:48 12:25 Wound Center Nurse 2 #5 Left Lateral Plantar -Time 11:32 16:49 12:25 -Correct Patient Yes Yes Yes -Correct Side, Site, Position Yes Yes Yes -Correct Procedure Yes Yes Yes -Procedure Performed Yes Yes Yes -Type of Procedure Debridement Debridement Debridement -Clinical Debridement Subcutaneous Subcutaneous Subcutaneous -Post Debridement Size (cm) - Length 1.8 1.8 2.0 -Post Debridement Size (cm) - Width 1.8 1.9 2.0 -Post Debridement Size (cm) - Depth 0.7 0.3 1.6 -Total Square Cm 3.24 3.42 4.00 -Wound/Ulcer Outcome Not Healed Not Healed Not Healed -Ulcer Cleansing Rinsed/ Rinsed/ Rinsed/ Irrigated with Irrigated with Irrigated with Saline Saline Saline -Foul Odor after Cleansing No No No -Bioengineered Tissue No No -Bleeding Controlled with Pressure Pressure Pressure -Offloading Yes Yes No -Type of Offloading Camwalker Camwalker -Treatment Response Procedure Procedure Procedure Tolerated Well Tolerated Well Tolerated Well #4 Right Lateral Malleolus-Post Op -Time 11:32 16:50 12:26 -Correct Patient Yes Yes Yes -Correct Side, Site, Position Yes Yes Yes -Correct Procedure Yes Yes Yes -Procedure Performed Yes Yes Yes -Type of Procedure Debridement Debridement Debridement -Clinical Debridement Subcutaneous Subcutaneous Subcutaneous -Post Debridement Size (cm) - Length 7.8 6.7 6.5 -Post Debridement Size (cm) - Width 5.3 4.8 4.0 -Post Debridement Size (cm) - Depth 0.3 0.1 0.2 -Total Square Cm 41.34 32.16 26.00 -Wound/Ulcer Outcome Not Healed Not Healed Not Healed -Ulcer Cleansing Rinsed/ Rinsed/ Rinsed/ Irrigated with Irrigated with Irrigated with Saline Saline Saline -Foul Odor after Cleansing No No No -Bioengineered Tissue Yes Yes -Type of bioengineered Tissue Apligraf Apligraf -Expiration Date 02/17/19 03/10/19 -Product Lot Number [id number] -Percent Used 100 100 -Saline Lot Number [id number] -Bleeding Controlled with Pressure Pressure -Offloading Yes Yes No -Type of Offloading Surgical Shoe Camwalker -Treatment Response Procedure Procedure Procedure Tolerated Well Tolerated Well Tolerated Well Pain Scale: 0-10 Numeric Is Patient Pain Free? Yes Yes Yes Wound debrided: Left foot (plantar) Wound Grade/Stage: Grade 2 Type of Debridement: Excisional debridement Anesthesia Used: 4% Lidocaine Solution Depth: Down to and including healthy tissue, in the subcutaneous layer Percentage of wound debrided: 100 Instrument Used: 5mm curette Tissue Removed: Slough and devitalized tissue Severity: Fat Layer Exposed Amount of bleeding with debridement: Mild Bleeding Controlled with: Pressure Patient tolerated procedure well - Additional Wound Wound debrided: Right foot (ankle) Wound Grade/Stage: Grade 2 Type of Debridement: Excisional debridement Anesthesia Used: 4% Lidocaine Solution Depth: Down to and including healthy tissue, in the subcutaneous layer Percentage of wound debrided: 100 Instrument Used: 5mm curette Tissue Removed: Slough and devitalized tissue Severity: Fat Layer Exposed Amount of bleeding with debridement: Mild Bleeding Controlled with: Pressure Patient tolerated procedure: Patient tolerated procedure well Assessment/Plan Active Problems (Last Updated 01/30/19 @ 09:58 by Zach Mitchell, [employer] TECH[employer]ICIAN-C) Ulcer of right lower extremity with fat layer exposed (Chronic) Chronic ulcer of left foot with fat layer exposed (Chronic) Diabetic ulcer of right ankle (Chronic) diabetic ulcer abscess right lateral malleolus Diabetic foot ulcer associated with type 2 diabetes mellitus (Chronic) Assessment: Diabetic ulcer of right ankle - diabetic ulcer abscess right lateral malleolus. Diabetic foot ulcer associated with type 2 diabetes mellitus. Hemoglobin A1c greater than 9.0%. Type II diabetes mellitus, uncontrolled. varus deformity bilateral lower extremities. malnutrition suspected. delayed healing Plan: Courtesy Visit for Dr. Edgar. Debridement of both ulcers done as documented above. Procedure was well-tolerated. Apligraf applied to the right foot (ankle) ulcer. Wound veil over top and secured with Steri-Strips. Continue Aquacel extra to left foot. Change daily. Offloading strongly recommended. Optimal blood sugar control and increased protein intake also discussed. All questions were answered and she was advised to call with any further questions or concerns. Follow-up with Dr. Edgar on Tuesday. This note was generated with [employer] software. It may contain incorrect words, spelling, and punctuation that were not noted in checking the note before signing.
--- NOTE | 2019-03-01 13:00 | PN.PCM_ITS ---
(1) Chronic ulcer of left foot with fat layer exposed Status: Chronic Current Visit: Yes Code(s): L97.522 - Non-pressure chronic ulcer of other part of left foot with fat layer exposed (2) Diabetic foot ulcer associated with type 2 diabetes mellitus Status: Chronic Current Visit: Yes Qualifiers: Code(s): E11.621 - Type 2 diabetes mellitus with foot ulcer; L97.509 - Non- pressure chronic ulcer of other part of unspecified foot with unspecified severity (3) Diabetic ulcer of right ankle Status: Chronic Current Visit: Yes Code(s): E11.622 - Type 2 diabetes mellitus with other skin ulcer; L97.319 - Non-pressure chronic ulcer of right ankle with unspecified severity Comment: diabetic ulcer abscess right lateral malleolus (4) Ulcer of right lower extremity with fat layer exposed Status: Chronic Current Visit: Yes Code(s): L97.912 - Non-pressure chronic ulcer of unspecified part of right lower leg with fat layer exposed Type of Wound Chief Complaint: Right ankle diabetic ulcer. left foot ulcer History of Wound: Patient had an I&D of her right lateral ankle infection on 12/22/[address] Allen. She was taken back to surgery on 12/27/[address] Taylor for a surgical preparation right lateral malleolus with incision and drainage and exicisional debridement necrotizing diabetic ulcer abscess (40 cm2). Her wound cultures from 12/27/18 grew Staphylococcu aureus. She was treated with Unasyn and sent to [place] on Keflex and a wound VAC. On 12/28/18 her prealbumin was 9.1. On 12/21/18 her HgA1C was 12.2%. She now has home health to help with wound VAC changes. We applied Appligraft #2 with adaptic wound veil. today on her right lateral ankle. She did not bring her wound VAC to the clinic, will have home health apply it today. This should be beneficial to help with wound healing. She was seeing Dr. Allen for a diabetic foot ulcer on the plantar surface, lateral aspect of her left foot that srinivas was being applied to daily. She would like to have us manage this ucler while she is coming to the wound center so she has one less appointment for her daughter to take her to. she has been using Regranix to the left plantar ulcer. It appears worse with undermining. She was recently switched to aquacel silver and advised to use a knee roller. Instructed her to try and refrain from walking on her left foot. She does have a wheelchair at home. She just got a new CAM walking boot. She had an MRI of that foot 08/22/18; this result is not viewable at [facility]. She denies fever, chills, nausea. She complains of restless leg syndrome. She has trouble staying off of her ulcers and walks. Progress of Wound: Courtesy visit for Dr. Edgar. Being ,managed bilateral foot ulcers. No new concerns at this time. - Physical Exam Vital Signs Temp Pulse Resp BP 98.0 F 86 18 146/81 H 03/01/19 11:47 03/01/19 11:47 03/01/19 11:47 03/01/19 11:47 General: Alert, Oriented x3, Cooperative, No apparent distress HEENT: Atraumatic, Normocephalic Oral: Moist Mucosa Neck: Supple Lungs: Normal air movement Extremities: No cyanosis Skin: Ulcer/ Wound Wound Measurements and Assessment WC - Nurse 1 - General Ulcer Measurement Start: 02/13/19 11:16 Freq: Status: Active Protocol: Activity Type Activity Date Activity User E-Sign Co-Sign Detail Recorded Client Recorded Date Recorded By Document 03/01/19 11:47 LISSY [id number] 03/01/19 11:56 LISSY 03/01/19 11:47 Wound Center Nurse 1 [Ulcer Assessment] #5 Left Lateral Plantar -Combined with other wound No -Current Size (cm) - Length 2.2 -Current Size (cm) - Width 2 -Current Size (cm) - Depth 2.0 -Total Square Cm 4.4 -Photo Taken No -Epithelialization None Present -Tunneling No -Undermining/Tunneling No -Circular Undermining No -Exudate Amt Large -Exudate Type Serosanguineous -Wound Margin Flat & Intact -Granulation Amt Large (67-100%) -Granulation Quality Red -Slough/Fibrin Yes -Necrosis Amt Small (1-33%) -Necrotic Tissue Type Adherent Slough -Structure Exposed N/A -Texture (Natacha-wound Skin Appearance) Assessed Callus -Moisture (Natacha-wound Skin Appearance Assessed ) Dry/Scaly -Color (Natacha-wound Skin Appearance) Assessed -Temperature (Natacha-wound Skin No Abnormality Appearance) (Pt Warm) -Tenderness on Palpation (Natacha-wound No Skin Appearance) -Ulcer Cleansing Wound Cleanser -Foul Odor after Cleansing No -Anesthetic Used 4% Lidocaine Solution #4 Right Lateral Malleolus-Post Op -Combined with other wound No -Current Size (cm) - Length 5.8 -Current Size (cm) - Width 3.7 -Current Size (cm) - Depth 0.1 -Total Square Cm 21.46 -Photo Taken No -Epithelialization Small 1-33% -Tunneling No -Undermining/Tunneling No -Circular Undermining No -Exudate Amt Medium -Exudate Type Serosanguineous -Wound Margin Flat & Intact -Granulation Amt Large (67-100%) -Granulation Quality [place] -Slough/Fibrin Yes -Necrosis Amt Small (1-33%) -Necrotic Tissue Type Adherent Slough -Structure Exposed N/A -Texture (Natacha-wound Skin Appearance) Assessed Localized Edema -Moisture (Natacha-wound Skin Appearance Assessed ) Dry/Scaly -Color (Natacha-wound Skin Appearance) Assessed -Temperature (Natacha-wound Skin No Abnormality Appearance) (Pt Warm) -Tenderness on Palpation (Natacha-wound No Skin Appearance) -Ulcer Cleansing Wound Cleanser -Foul Odor after Cleansing No -Anesthetic Used 4% Lidocaine Solution [Edema Assessment] -Lower Limb Edema Present No WC - Nurse 2 - General Ulcer CM Notes Start: 02/13/19 11:16 Freq: Status: Active Protocol: Activity Type Activity Date Activity User E-Sign Co-Sign Detail Recorded Client Recorded Date Recorded By Document 03/01/19 12:25 MW [id number] 03/01/19 12:33 MW 03/01/19 12:25 Wound Center Nurse 2 [Procedure/Treatment] #5 Left Lateral Plantar -Time 12:25 -Correct Patient Yes -Correct Side, Site, Position Yes -Correct Procedure Yes -Procedure Performed Yes -Type of Procedure Debridement -Clinical Debridement Subcutaneous -Post Debridement Size (cm) - Length 2.0 -Post Debridement Size (cm) - Width 2.0 -Post Debridement Size (cm) - Depth 1.6 -Total Square Cm 4.00 -Wound/Ulcer Outcome Not Healed -Ulcer Cleansing Rinsed/ Irrigated with Saline -Foul Odor after Cleansing No -Bioengineered Tissue No -Bleeding Controlled with Pressure -Offloading No -Treatment Response Procedure Tolerated Well #4 Right Lateral Malleolus-Post Op -Time 12:26 -Correct Patient Yes -Correct Side, Site, Position Yes -Correct Procedure Yes -Procedure Performed Yes -Type of Procedure Debridement -Clinical Debridement Subcutaneous -Post Debridement Size (cm) - Length 6.5 -Post Debridement Size (cm) - Width 4.0 -Post Debridement Size (cm) - Depth 0.2 -Total Square Cm 26.00 -Wound/Ulcer Outcome Not Healed -Ulcer Cleansing Rinsed/ Irrigated with Saline -Foul Odor after Cleansing No -Bioengineered Tissue Yes -Type of bioengineered Tissue Apligraf -Expiration Date 03/10/19 -Product Lot Number [id number] -Percent Used 100 -Saline Lot Number [id number] -Bleeding Controlled with Pressure -Offloading No -Treatment Response Procedure Tolerated Well [See Physician Procedure note for Specifics] Pain Scale: 0-10 Numeric [Pain] -Is Patient Pain Free? Yes Musculoskeletal: No Muscle Wasting Neurological: Cranial nerves II-XII grossly intact Psych/Mental Status: Normal Affect Debridement Note Post-Debridement Measurements/Treatment WC - Nurse 2 - General Ulcer CM Notes Start: 02/13/19 11:16 Freq: Status: Active Protocol: Activity Type Activity Date Activity User E-Sign Co-Sign Detail Recorded Client Recorded Date Recorded By Document 02/13/19 11:31 [id number] 02/13/19 11:45 JF Document 02/21/19 16:48 AN [id number] 02/21/19 16:57 AN Document 03/01/19 12:25 MW [id number] 03/01/19 12:33 MW 02/13/19 02/21/19 03/01/19 11:31 16:48 12:25 Wound Center Nurse 2 #5 Left Lateral Plantar -Time 11:32 16:49 12:25 -Correct Patient Yes Yes Yes -Correct Side, Site, Position Yes Yes Yes -Correct Procedure Yes Yes Yes -Procedure Performed Yes Yes Yes -Type of Procedure Debridement Debridement Debridement -Clinical Debridement Subcutaneous Subcutaneous Subcutaneous -Post Debridement Size (cm) - Length 1.8 1.8 2.0 -Post Debridement Size (cm) - Width 1.8 1.9 2.0 -Post Debridement Size (cm) - Depth 0.7 0.3 1.6 -Total Square Cm 3.24 3.42 4.00 -Wound/Ulcer Outcome Not Healed Not Healed Not Healed -Ulcer Cleansing Rinsed/ Rinsed/ Rinsed/ Irrigated with Irrigated with Irrigated with Saline Saline Saline -Foul Odor after Cleansing No No No -Bioengineered Tissue No No -Bleeding Controlled with Pressure Pressure Pressure -Offloading Yes Yes No -Type of Offloading Camwalker Camwalker -Treatment Response Procedure Procedure Procedure Tolerated Well Tolerated Well Tolerated Well #4 Right Lateral Malleolus-Post Op -Time 11:32 16:50 12:26 -Correct Patient Yes Yes Yes -Correct Side, Site, Position Yes Yes Yes -Correct Procedure Yes Yes Yes -Procedure Performed Yes Yes Yes -Type of Procedure Debridement Debridement Debridement -Clinical Debridement Subcutaneous Subcutaneous Subcutaneous -Post Debridement Size (cm) - Length 7.8 6.7 6.5 -Post Debridement Size (cm) - Width 5.3 4.8 4.0 -Post Debridement Size (cm) - Depth 0.3 0.1 0.2 -Total Square Cm 41.34 32.16 26.00 -Wound/Ulcer Outcome Not Healed Not Healed Not Healed -Ulcer Cleansing Rinsed/ Rinsed/ Rinsed/ Irrigated with Irrigated with Irrigated with Saline Saline Saline -Foul Odor after Cleansing No No No -Bioengineered Tissue Yes Yes -Type of bioengineered Tissue Apligraf Apligraf -Expiration Date 02/17/19 03/10/19 -Product Lot Number [id number] -Percent Used 100 100 -Saline Lot Number [id number] -Bleeding Controlled with Pressure Pressure -Offloading Yes Yes No -Type of Offloading Surgical Shoe Camwalker -Treatment Response Procedure Procedure Procedure Tolerated Well Tolerated Well Tolerated Well Pain Scale: 0-10 Numeric Is Patient Pain Free? Yes Yes Yes Wound debrided: Left foot (plantar) Wound Grade/Stage: Grade 2 Type of Debridement: Excisional debridement Anesthesia Used: 4% Lidocaine Solution Depth: Down to and including healthy tissue, in the subcutaneous layer Percentage of wound debrided: 100 Instrument Used: 5mm curette Tissue Removed: Slough and devitalized tissue Severity: Fat Layer Exposed Amount of bleeding with debridement: Mild Bleeding Controlled with: Pressure Patient tolerated procedure well - Additional Wound Wound debrided: Right foot (ankle) Wound Grade/Stage: Grade 2 Type of Debridement: Excisional debridement Anesthesia Used: 4% Lidocaine Solution Depth: Down to and including healthy tissue, in the subcutaneous layer Percentage of wound debrided: 100 Instrument Used: 5mm curette Tissue Removed: Slough and devitalized tissue Severity: Fat Layer Exposed Amount of bleeding with debridement: Mild Bleeding Controlled with: Pressure Patient tolerated procedure: Patient tolerated procedure well Assessment/Plan Active Problems (Last Updated 01/30/19 @ 09:58 by Zach Mitchell, [employer]) Ulcer of right lower extremity with fat layer exposed (Chronic) Chronic ulcer of left foot with fat layer exposed (Chronic) Diabetic ulcer of right ankle (Chronic) diabetic ulcer abscess right lateral malleolus Diabetic foot ulcer associated with type 2 diabetes mellitus (Chronic) Assessment: Diabetic ulcer of right ankle - diabetic ulcer abscess right lateral malleolus. Diabetic foot ulcer associated with type 2 diabetes mellitus. Hemoglobin A1c greater than 9.0%. Type II diabetes mellitus, uncontrolled. varus deformity bilateral lower extremities. malnutrition suspected. delayed healing Plan: Courtesy Visit for Dr. Edgar. Debridement of both ulcers done as documented above. Procedure was well-tolerated. Apligraf applied to the right foot (ankle) ulcer. Wound veil over top and secured with Steri-Strips. Continue Aquacel extra to left foot. Change daily. Offloading strongly r ecommended. Optimal blood sugar control and increased protein intake also discussed. All questions were answered and she was advised to call with any further questions or concerns. Follow-up with Dr. Edgar on Tuesday. This note was generated with [employer] dictation software. It may contain incorrect words, spelling, and punctuation that were not noted in checking the note before signing.
--- NOTE | 2019-03-01 13:40 | RAD_ITS ---
STUDY: X-RAY - RIGHT ANKLE REASON FOR EXAM: Female, 53 years old. Non-healing ulcer on lateral side, diabetic. TECHNIQUE: 3 view(s) of the ankle. COMPARISON: 12/24/2018 FINDINGS: No significant change. Diffuse soft tissue swelling most pronounced laterally and with appears to be irregularities of the soft tissues which could be skin wounds. Correlate clinically. Stable irregularities along both sides of the ankle joint consistent with degenerative changes. Probable old ununited avulsion fracture off of the medial wall of the talus. Degenerative changes of the midfoot are seen. RAD/Ankle min 3 Views IMPRESSION: No significant change. No focal destructive lesion of the bones seen. Electronically Signed: Alexis Rosales MD at 18:43 EDT , Service support ,
--- NOTE | 2019-03-01 13:50 | RAD_ITS ---
STUDY: X-RAY - LEFT FOOT CLINICAL: Female, 53 years old. 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 TECHNIQUE: 3 view(s) of the foot. COMPARISON: 12/28/2018. FINDINGS: On the lateral view, soft tissue swelling seen of the plantar aspect of the foot with a moderately large soft tissue ulcer. Correlate with physical exam. No evidence for soft tissue gas. No change or acute abnormality of the bones and joints. No definite focal destructive process of the bones. Stable appearance of amputation of most of the fifth metatarsal, and the entire fifth toe. Normal mineralization. RAD/Foot min 3 Views IMPRESSION: Plantar surface ulcer and soft tissue swelling. No definite change in the appearance of the bones or joints. No focal destructive lesions. Electronically Signed: Alexis Rosales MD at 18:19 EDT , Service support ,
[2019-03-07 15:28] VITALS: BP 139/78; PULSE 101; RESP 18; TEMP 37; BMI 29.0
--- NOTE | 2019-03-07 16:44 | PN.PCM_ITS ---
(1) Ulcer of right lower extremity with fat layer exposed Status: Chronic Code(s): L97.912 - Non-pressure chronic ulcer of unspecified part of right lower leg with fat layer exposed (2) Chronic ulcer of left foot with fat layer exposed Status: Chronic Code(s): L97.522 - Non-pressure chronic ulcer of other part of left foot with fat layer exposed (3) Acquired varus deformity of right foot Status: Chronic Code(s): M21.171 - Varus deformity, not elsewhere classified, right ankle (4) Acquired varus deformity of left foot Status: Chronic Code(s): M21.172 - Varus deformity, not elsewhere classified, left ankle (5) Delayed wound healing Status: Chronic Code(s): T14.8XXD - Other injury of unspecified body region, subsequent encounter (6) Malnutrition Status: Chronic Code(s): E46 - Unspecified protein-calorie malnutrition (7) Diabetic foot ulcer associated with type 2 diabetes mellitus Status: Chronic Qualifiers: Code(s): E11.621 - Type 2 diabetes mellitus with foot ulcer; L97.509 - Non- pressure chronic ulcer of other part of unspecified foot with unspecified severity Type of Wound Date of Service: 03/07/19 Chief Complaint: Right ankle diabetic ulcer. left foot ulcer History of Wound: Patient had an I&D of her right lateral ankle infection on 12/22/[address] Allen. She was taken back to surgery on 12/27/[address] Taylor for a surgical preparation right lateral malleolus with incision and drainage and exicisional debridement necrotizing diabetic ulcer abscess (40 cm2). Her wound cultures from 12/27/18 grew Staphylococcu aureus. She was treated with Unasyn and sent to [place] on Keflex and a wound VAC. On 12/28/18 her prealbumin was 9.1. On 12/21/18 her HgA1C was 12.2%. She now has home health to help with wound VAC changes. We applied Appligraft #2 with adaptic wound veil. today on her right lateral ankle. She had an Apligraf applied last week to the right ankle and this has remained intact. She is continuing to walk on the left foot ulcer. She did obtain x-rays of her left foot and right ankle she wants to return to [place] permanently at the end of the month because she has not been there for over a year as advised and is here to review this today. Progress of Wound: Stable bilateral - Physical Exam Vital Signs Temp Pulse Resp BP 98.6 F 101 H 18 139/78 H 03/07/19 15:28 03/07/19 15:28 03/07/19 15:28 03/07/19 15:28 General: Alert, Oriented x3, Cooperative, No apparent distress Extremities: No cyanosis, Capillary Refill Less than 3 Seconds, No Calf Tenderness - Negative Jaswinder and Nuñez signs bilateral, Diminished Peripheral Pulses, Edema - Mild, - - Various reducible attitude nonweightbearing bilateral lower extremities. Partial fifth ray resections are noted bilateral foot Skin: Ulcer/ Wound - No purulence, erythema, streaking, odor, or infection. The peripheral skin is hairless and atrophic. The Apligraf remains intact to the right lateral ankle with a wound veil and Steri-Strips that was placed last week. The left plantar lateral foot ulcer site probes deep with undermining and significant peripheral callus formation Wound Measurements and Assessment WC - Nurse 1 - General Ulcer Measurement Start: 02/13/19 11:16 Freq: Status: Active Protocol: Activity Type Activity Date Activity User E-Sign Co-Sign Detail Recorded Client Recorded Date Recorded By Document 03/07/19 15:28 MA [id number] 03/07/19 15:31 MT 03/07/19 15:28 Wound Center Nurse 1 [Ulcer Assessment] #5 Left Lateral Plantar -Current Size (cm) - Length 2.0 -Current Size (cm) - Width 2.1 -Current Size (cm) - Depth 0.3 -Total Square Cm 4.20 -Undermining/Tunneling Yes -Undermining/Tunneling Starts (O' 6 clock) -Undermining/Tunneling Ends (O'clock) 9 -Maximum Distance (cm) 1.3 -Exudate Amt Medium -Exudate Type Serosanguineous -Wound Margin Thickened & Rolled Under -Granulation Amt Large (67-100%) -Granulation Quality Pale [place] -Necrosis Amt Small (1-33%) -Necrotic Tissue Type Adherent Slough -Texture (Natacha-wound Skin Appearance) Assessed Callus -Moisture (Natacha-wound Skin Appearance Assessed ) -Color (Natacha-wound Skin Appearance) Assessed -Temperature (Natacha-wound Skin No Abnormality Appearance) (Pt Warm) -Tenderness on Palpation (Natacha-wound No Skin Appearance) -Ulcer Cleansing Rinsed/ Irrigated with Saline -Foul Odor after Cleansing No -Anesthetic Used 4% Lidocaine Solution #4 Right Lateral Malleolus-Post Op -Current Size (cm) - Length 0.1 -Current Size (cm) - Width 0.1 -Current Size (cm) - Depth 0.1 -Total Square Cm 0.01 [Edema Assessment] -Right Calf (cm) 35.5 -Right Ankle (cm) 21 -Left Calf (cm) 35.5 -Left Ankle (cm) 21 WC - Nurse 2 - General Ulcer CM Notes Start: 02/13/19 11:16 Freq: Status: Active Protocol: Activity Type Activity Date Activity User E-Sign Co-Sign Detail Recorded Client Recorded Date Recorded By Document 03/07/19 16:15 AN [id number] 03/07/19 16:16 AN 03/07/19 16:15 Wound Center Nurse 2 [Procedure/Treatment] #5 Left Lateral Plantar -Time 16:15 -Correct Patient Yes -Correct Side, Site, Position Yes -Correct Procedure Yes -Procedure Performed Yes -Type of Procedure Debridement -Clinical Debridement Subcutaneous -Post Debridement Size (cm) - Length 2.2 -Post Debridement Size (cm) - Width 2.1 -Post Debridement Size (cm) - Depth 0.3 -Total Square Cm 4.62 -Wound/Ulcer Outcome Not Healed -Ulcer Cleansing Rinsed/ Irrigated with Saline -Bioengineered Tissue No -Bleeding Controlled with Pressure -Offloading Yes -Type of Offloading Surgical Shoe -Treatment Response Procedure Tolerated Well #4 Right Lateral Malleolus-Post Op -Time 16:16 -Correct Patient Yes -Correct Side, Site, Position Yes -Correct Procedure Yes -Procedure Performed No -Wound/Ulcer Outcome Not Healed -Treatment Response Procedure Tolerated Well [See Physician Procedure note for Specifics] Pain Scale: 0-10 Numeric [Pain] -Is Patient Pain Free? Yes Musculoskeletal: No Tenderness to Palpation of Joints or Extremities, Muscle Wasting, - - Deformities noted. No pain with ulcer manipulation bilateral Neurological: - - Lack of normal epicritic sensation light touch consistent with neuropathy bilateral lower extremities Psych/Mental Status: Normal Affect, Appropriate Debridement Note Post-Debridement Measurements/Treatment WC - Nurse 2 - General Ulcer CM Notes Start: 02/13/19 11:16 Freq: Status: Active Protocol: Activity Type Activity Date Activity User E-Sign Co-Sign Detail Recorded Client Recorded Date Recorded By Document 02/13/19 11:31 JF [id number] 02/13/19 11:45 JF Document 02/21/19 16:48 AN [id number] 02/21/19 16:57 AN Document 03/01/19 12:25 MW [id number] 03/01/19 12:33 MW Document 03/07/19 16:15 AN [id number] 03/07/19 16:16 AN 02/13/19 02/21/19 03/01/19 11:31 16:48 12:25 Wound Center Nurse 2 #5 Left Lateral Plantar -Time 11:32 16:49 12:25 -Correct Patient Yes Yes Yes -Correct Side, Site, Position Yes Yes Yes -Correct Procedure Yes Yes Yes -Procedure Performed Yes Yes Yes -Type of Procedure Debridement Debridement Debridement -Clinical Debridement Subcutaneous Subcutaneous Subcutaneous -Post Debridement Size (cm) - Length 1.8 1.8 2.0 -Post Debridement Size (cm) - Width 1.8 1.9 2.0 -Post Debridement Size (cm) - Depth 0.7 0.3 1.6 -Total Square Cm 3.24 3.42 4.00 -Wound/Ulcer Outcome Not Healed Not Healed Not Healed -Ulcer Cleansing Rinsed/ Rinsed/ Rinsed/ Irrigated with Irrigated with Irrigated with Saline Saline Saline -Foul Odor after Cleansing No No No -Bioengineered Tissue No No -Bleeding Controlled with Pressure Pressure Pressure -Offloading Yes Yes No -Type of Offloading Camwalker Camwalker -Treatment Response Procedure Procedure Procedure Tolerated Well Tolerated Well Tolerated Well #4 Right Lateral Malleolus-Post Op -Time 11:32 16:50 12:26 -Correct Patient Yes Yes Yes -Correct Side, Site, Position Yes Yes Yes -Correct Procedure Yes Yes Yes -Procedure Performed Yes Yes Yes -Type of Procedure Debridement Debridement Debridement -Clinical Debridement Subcutaneous Subcutaneous Subcutaneous -Post Debridement Size (cm) - Length 7.8 6.7 6.5 -Post Debridement Size (cm) - Width 5.3 4.8 4.0 -Post Debridement Size (cm) - Depth 0.3 0.1 0.2 -Total Square Cm 41.34 32.16 26.00 -Wound/Ulcer Outcome Not Healed Not Healed Not Healed -Ulcer Cleansing Rinsed/ Rinsed/ Rinsed/ Irrigated with Irrigated with Irrigated with Saline Saline Saline -Foul Odor after Cleansing No No No -Bioengineered Tissue Yes Yes -Type of bioengineered Tissue Apligraf Apligraf -Expiration Date 02/17/19 03/10/19 -Product Lot Number [id number] -Percent Used 100 100 -Saline Lot Number [id number] -Bleeding Controlled with Pressure Pressure -Offloading Yes Yes No -Type of Offloading Surgical Shoe Camwalker -Treatment Response Procedure Procedure Procedure Tolerated Well Tolerated Well Tolerated Well Pain Scale: 0-10 Numeric Is Patient Pain Free? Yes Yes Yes 03/07/19 16:15 Wound Center Nurse 2 #5 Left Lateral Plantar -Time 16:15 -Correct Patient Yes -Correct Side, Site, Position Yes -Correct Procedure Yes -Procedure Performed Yes -Type of Procedure Debridement -Clinical Debridement Subcutaneous -Post Debridement Size (cm) - Length 2.2 -Post Debridement Size (cm) - Width 2.1 -Post Debridement Size (cm) - Depth 0.3 -Total Square Cm 4.62 -Wound/Ulcer Outcome Not Healed -Ulcer Cleansing Rinsed/ Irrigated with Saline -Foul Odor after Cleansing -Bioengineered Tissue No -Bleeding Controlled with Pressure -Offloading Yes -Type of Offloading Surgical Shoe -Treatment Response Procedure Tolerated Well #4 Right Lateral Malleolus-Post Op -Time 16:16 -Correct Patient Yes -Correct Side, Site, Position Yes -Correct Procedure Yes -Procedure Performed No -Type of Procedure -Clinical Debridement -Post Debridement Size (cm) - Length -Post Debridement Size (cm) - Width -Post Debridement Size (cm) - Depth -Total Square Cm -Wound/Ulcer Outcome Not Healed -Ulcer Cleansing -Foul Odor after Cleansing -Bioengineered Tissue -Type of bioengineered Tissue -Expiration Date -Product Lot Number -Percent Used -Saline Lot Number -Bleeding Controlled with -Offloading -Type of Offloading -Treatment Response Procedure Tolerated Well Pain Scale: 0-10 Numeric Is Patient Pain Free? Yes Wound debrided: plantar lateral foot Laterality: Left Wound Grade/Stage: grade 1 Type of Debridement: Excisional debridement Anesthesia Used: 5% Lidocaine Gel Depth: in the subcutaneous layer Percentage of wound debrided: 100 Instrument Used: #15 blade Tissue Removed: fibrous, devitalized subcutaneous, biofilm, slough Severity: Fat Layer Exposed Amount of bleeding with debridement: Mild Bleeding Controlled with: Pressure Patient tolerated procedure well Assessment/Plan Clinical Impression(s) from Imaging Studies Ankle X-Ray 03/01/19 13:40 IMPRESSION: No significant change. No focal destructive lesion of the bones seen. Electronically Signed: Alexis Rosales MD at 18:43 EDT , Service support , Foot X-Ray 03/01/19 13:50 IMPRESSION: Plantar surface ulcer and soft tissue swelling. No definite change in the appearance of the bones or joints. No focal destructive lesions. Electronically Signed: Alexis Rosales MD at 18:19 EDT , Service support , Assessment: Diabetic ulcer of right ankle - diabetic ulcer abscess right lateral malleolus. Diabetic foot ulcer associated with type 2 diabetes mellitus. Hemoglobin A1c significantly elevated. Type II diabetes mellitus with neuropathy, uncontrolled. varus deformity bilateral lower extremities. malnutrition suspected. delayed healing. Previous foot surgeries noted Plan: I reviewed and discussed her case. Debridement of both ulcers done as documented above. Procedure was well-tolerated. The Apligraf that was applied to the right ankle remains intact and a secondary dressing was applied today. To keep clean, dry, and intact until follow-up visit next week. To change left foot dressing daily with the same wound healing product, Aquacel Ag. Offloading strongly recommended. Optimal blood sugar control and increased protein intake also discussed. To obtain the recommended labs and blood flow studies that were ordered; as noted she was not able to do this yet. I reviewed her right ankle x-rays which did not demonstrate soft tissue emphysema or osseous destruction. The ankle mortise is well aligned. It is noted she had a previous resection of the distal part of the fifth metatarsal. The left foot x-rays were reviewed without soft tissue emphysema, foreign body,, obvious osseous destruction at the ulcer site. There is previous fifth ray resection noted with a large remaining proximal aspect of the fifth metatarsal that is lined up perfectly with the ulcer site. I recommended surgical excision of most of the fifth metatarsal that is remaining to alleviate this pressure point. Tendon transfers would be considered if she was more compliant and was able to undergo the recommended recovery. I do not any further surgical intervention for the right lower extremity. This patient is planning to travel back to [place] permanently in the end of the month and is not amenable to undergo any surgeries. She will consider this and will let me know if she changes her mind. She was reassured no local signs of infection noted today. Compliance was discussed with offloading. I also recommended a nutrition referral and this was provided today. She understands abnormal blood sugars are combination of poor health and eating habits that have accumulated over several decades.
== END 2019-03-09 23:59 ==
LOC: WC 15:30
PROVIDERS: Family Provider Family Medicine; PCP Family Medicine; Referring Provider Podiatrist; Visit Provider Podiatrist
DX: E11.622 Type 2 diabetes mellitus with other skin ulcer (principal); E11.621 Type 2 diabetes mellitus with foot ulcer; L97.312 Non-pressure chronic ulcer of right ankle with fat layer exposed; L97.522 Non-pressure chronic ulcer of other part of left foot with fat layer exposed; E11.65 Type 2 diabetes mellitus with hyperglycemia; E11.42 Type 2 diabetes mellitus with diabetic polyneuropathy; M21.171 Varus deformity, not elsewhere classified, right ankle; M21.172 Varus deformity, not elsewhere classified, left ankle
CPT/HCPCS: 11042; 11045; 15275; 73610; 73630; 97605; 99213; Q4101; G0463

== ENCOUNTER 2019-04-02 00:23 | Emergency (ER) | payer MEDICARE, MEDICAID, SELFPAY ==
[2018-09-21 13:23] VITALS: BMI 29.3
[2019-03-28 15:19] VITALS: BMI 29.0
[2019-04-02 00:23] VITALS: BP 120/62; PULSE 114; RESP 15; TEMP 37.6; BMI 29.0
--- NOTE | 2019-04-02 00:49 | RAD_ITS ---
HISTORY: WOUND CHECK ADDITIONAL HISTORY: None provided. COMPARISON: 03/01/2019 TECHNIQUE: Left foot 3 views Number of images including paperwork: 3 FINDINGS: BONES: No acute fracture. 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 No definite bone destructive changes are seen radiographically JOINTS: No subluxation. SOFT TISSUES: No distinct foreign body. Soft tissue swelling is present with ulcer noted along the plantar aspect of the foot at the level of the proximal fifth metatarsal. RAD/Foot min 3 Views IMPRESSION: No acute osseous abnormality. Soft tissue ulcer of the left foot. No definite bone destructive changes are seen radiographically. MRI more sensitive for osteomyelitis. at 0140 Reported and signed by: Josie Cruz MD Electronically Signed: Josie Cruz MD at 1:40 EDT Tel , Service support ,
--- NOTE | 2019-04-02 00:50 | ED.VISSUMM ---
- ER Visit Summary Date of Service: 04/02/19 Chief Complaint: Left foot wound History of Present Illness: The patient is a 53 F who presents with open wound to her left foot that is chronic. Patient states that today she noted some blackened area in the middle of the wound. Patient is concerned for possible infection. Patient admits to subjective chills. Patient denies any drainage. Patient admits to some paresthesias in her foot secondary to neuropathy. Patient denies any pain to the area. Patient admits to some nausea and vomiting. Patient states she goes to the wound center for this wound. Physical Examination: Vital signs are stable. Patient is afebrile. Patient is in no acute distress. Skin is warm and dry. There is a grade 3 ulcer over the plantar aspect of the left foot at the base of the fifth metatarsal. There is some fat layer exposure. There is some blackened area on this fat layer. There is no purulent discharge or drainage. There is no tenderness. There is some erythema and warmth around the ulceration extending to the dorsum of the foot. Pedal pulses are equal bilaterally. Test Results: CBC shows a mild anemia with a hemoglobin of 9.3 and hematocrit 28.9. These are consistent with prior results. Basic metabolic profile showed an elevated glucose of 589, sodium was 129. BUN and creatinine were slightly elevated at 25 and 1.24. X-ray of the left foot was obtained. There is no evidence of osteomyelitis. Emergency Department Course and Treatment: Patient was given a dose of Humalog here. Patient's repeat blood sugar was still greater than 500. Patient was given a repeat dose of Humalog. Patient's repeat blood sugar was 464. Patient was given a third dose of Humalog here. Patient was also given a dose of clindamycin. Patient was given a prescription for clindamycin. Patient was instructed to follow-up with her wound care center in 3 to 5 days. Patient understood and was agreeable with the plan. All questions were answered. Disposition: Discharge home Impression: 1. Left foot cellulitis 2. Chronic wound left foot 3. Hyperglycemia This note was generated with [employer] software. It may contain incorrect words, spelling, and punctuation that were not noted in review of the chart prior to signing ED Disposition - Plan for ED Patient: Disposition: Home or Assisted Living Diagnosis: Cellulitis of left foot, Chronic ulcer of left foot with fat layer exposed Instructions: Cellulitis Prescriptions: Clindamycin HCl [Cleocin] 300 mg PO Q6H #40 cap Prescription Printed Referrals: Raúl Eric MD [Primary Care Provider] - 5-7 Days
[2019-04-02 01:34] LABS: Absolute Neutrophil Count 8.3 X10^3/uL (2.0-7.7); Basophil# 0.02 X10^3/uL; Basophil% 0.2 % (0-1); Eosinophil# 0.06 X10^3/uL; Eosinophils% 0.6 % (0-5); Hematocrit 28.9 % (37-47); Hemoglobin 9.3 g/dl (12.0-15.0); Lymphocyte % 9.9 % (19-41); Mean Corp Hgb Conc 32.2 g/gl (32-36); Mean Corpuscular Hgb 26.3 pg (27.0-32.0); Mean Corpuscular Volume 81.9 fL (81-99); Mean Platelet Vol. 11.1 fl (6.2-12.0); Monocyte# 0.76 X10^3/uL; Monocyte% 7.5 % (0-10); Neutrophil # 8.27 X10^3/uL (2.7-7.7); Neutrophil % 81.6 % (47-70); Platelet Count 290 K/mm3 (150-450); RBC Distribution Width CV 14.2 % (11.6-14.6); Red Blood Count 3.53 M/mm3 (4.2-5.4); White Blood Count 10.1 K/mm3 (4.4-11.0)
[2019-04-02 01:40] LABS: POSITIVE COUNT NO; POSITIVE DIFFERENTIAL NO; POSITIVE MORPHOLOGY NO
--- NOTE | 2019-04-02 01:50 | ED.RN ---
critical lab value received from lab. glucose 589. dr. calderon notified.
[2019-04-02 01:51] LABS: Anion Gap 7 (5-15); BUN 25 mg/dL (7-18); BUN/Creat Ratio 20.2 RATIO (10-20); Calcium,Total 8.5 mg/dL (8.5-10.1); Chloride 98 mmol/L (98-107); Creatinine, Serum 1.24 mg/dL (0.55-1.02); EST Glomerular Filtration Rate 48 mL/min (>60); Est Glom Filt Rate - Afr Amer 58 mL/min (>60); Estimated Creatinine Clearance 49.12 ml/min; Glucose 589 mg/dL (74-106); Potassium 4.1 mmol/L (3.5-5.1); Sodium Level 129 mmol/L (136-145)
[2019-04-02 02:42] VITALS: RESP 16
[2019-04-02] MEDS: Insulin Lispro 100 UNIT/ML INSULN.PEN 15 UNIT SC ×3 (02:43→04:54)
[2019-04-02 03:21] LABS: Bedside Glucose > 500 mg/dL (70-110)
[2019-04-02 04:26] LABS: Bedside Glucose 464 mg/dL (70-110)
[2019-04-02 04:27] VITALS: BP 115/58; PULSE 88; RESP 16; TEMP 37.1; O2SAT 96
[2019-04-02] MEDS: Clindamycin HCl 150 MG Capsule 300 MG PO (05:22)
[2019-04-02 06:23] VITALS: BP 108/62; PULSE 89; RESP 16; O2SAT 96
[2019-04-02 06:25] VITALS: BP 108/62; PULSE 88; RESP 16; O2SAT 96
[2019-04-02] MEDS: Ondansetron ODT 4 MG Tablet PO (06:43)
[2019-04-02 06:50] LABS: Bedside Glucose 182 mg/dL (70-110)
== END 2019-04-02 06:44 | disposition home or self-care (01) ==
PROVIDERS: Emergency Provider Emergency Medicine; Family Provider Family Medicine; PCP Family Medicine
DX: L03.116 Cellulitis of left lower limb (principal); L97.522 Non-pressure chronic ulcer of other part of left foot with fat layer exposed; R11.2 Nausea with vomiting, unspecified; F11.20 Opioid dependence, uncomplicated; D64.9 Anemia, unspecified; R73.9 Hyperglycemia, unspecified; I25.10 Atherosclerotic heart disease of native coronary artery without angina pectoris; I10 Essential (primary) hypertension; G25.81 Restless legs syndrome; K21.9 Gastro-esophageal reflux disease without esophagitis; Z79.02 Long term (current) use of antithrombotics/antiplatelets; Z79.4 Long term (current) use of insulin; Z79.899 Other long term (current) drug therapy; Z87.39 Personal history of other diseases of the musculoskeletal system and connective tissue; Z95.5 Presence of coronary angioplasty implant and graft
CPT/HCPCS: 73630; 80048; 80307; 82962; 85025; 99284; A4216

== ENCOUNTER → 2019-04-02 17:04 | Outpatient (CLI) | payer MEDICARE, MEDICAID, SELFPAY ==
[2018-09-21 13:23] VITALS: BMI 29.3
[2019-04-02 00:23] VITALS: BMI 29.0
[2019-04-02 17:33] LABS: Amphetamine Urine VISTA NEGATIVE (<1000 ng/mL); Barbiturate Urine VISTA NEGATIVE (< 200 ng/mL); Benzodiazepine Urine VISTA NEGATIVE (< 200 ng/mL); Cocaine Urine VISTA NEGATIVE (< 300 ng/mL); Ecstacy Urine VISTA NEGATIVE (< 500 ng/mL); Methadone Urine VISTA NEGATIVE (< 300 ng/mL); PCP Urine VISTA NEGATIVE (< 25 ng/mL); THC Urine VISTA NEGATIVE (< 50 ng/mL); Vista UDS pH Range 5
== END ==
PROVIDERS: Family Provider Family Medicine; PCP Family Medicine; Visit Provider Anesthesiology Pain Medicine
DX: F11.20 Opioid dependence, uncomplicated (principal)
CPT/HCPCS: 80307

== ENCOUNTER 2019-04-04 15:15 | Outpatient (RCR) | payer MEDICARE, MEDICAID, SELFPAY ==
[2018-09-21 13:23] VITALS: BMI 29.3
[2019-03-10 01:09] VITALS: BP 139/78; PULSE 101; RESP 18; TEMP 37
[2019-03-22 11:53] VITALS: BP 148/86; PULSE 97; RESP 18; TEMP 36.8; BMI 29.0
--- NOTE | 2019-03-22 12:15 | PCM.WC.PN ---
(1) Ulcer of right lower extremity with fat layer exposed Status: Chronic Current Visit: No Code(s): L97.912 - Non-pressure chronic ulcer of unspecified part of right lower leg with fat layer exposed (2) Chronic ulcer of left foot with fat layer exposed Status: Chronic Current Visit: No Code(s): L97.522 - Non-pressure chronic ulcer of other part of left foot with fat layer exposed (3) Acquired varus deformity of right foot Status: Chronic Current Visit: No Code(s): M21.171 - Varus deformity, not elsewhere classified, right ankle (4) Acquired varus deformity of left foot Status: Chronic Current Visit: No Code(s): M21.172 - Varus deformity, not elsewhere classified, left ankle (5) Delayed wound healing Status: Chronic Current Visit: No Code(s): T14.8XXD - Other injury of unspecified body region, subsequent encounter (6) Malnutrition Status: Chronic Current Visit: No Code(s): E46 - Unspecified protein-calorie malnutrition (7) Diabetic foot ulcer associated with type 2 diabetes mellitus Status: Chronic Current Visit: No Qualifiers: Code(s): E11.621 - Type 2 diabetes mellitus with foot ulcer; L97.509 - Non-pressure chronic ulcer of other part of unspecified foot with unspecified severity Type of Wound Chief Complaint: Right ankle diabetic ulcer. left foot ulcer History of Wound: Patient had an I&D of her right lateral ankle infection on 12/22/[address] Allen. She was taken back to surgery on 12/27/[address] Taylor for a surgical preparation right lateral malleolus with incision and drainage and exicisional debridement necrotizing diabetic ulcer abscess (40 cm2). Her wound cultures from 12/27/18 grew Staphylococcu aureus. She was treated with Unasyn and sent to [place] on Keflex and a wound VAC. On 12/28/18 her prealbumin was 9.1. On 12/21/18 her HgA1C was 12.2%. She now has home health to help with wound VAC changes. We applied Appligraft #2 with adaptic wound veil. today on her right lateral ankle. She did not bring her wound VAC to the clinic, will have home health apply it today. This should be beneficial to help with wound healing. She was seeing Dr. Allen for a diabetic foot ulcer on the plantar surface, lateral aspect of her left foot that srinivas was being applied to daily. She would like to have us manage this ucler while she is coming to the wound center so she has one less appointment for her daughter to take her to. she has been using Regranix to the left plantar ulcer. It appears worse with undermining. She was recently switched to aquacel silver and advised to use a knee roller. Instructed her to try and refrain from walking on her left foot. She does have a wheelchair at home. She just got a new CAM walking boot. She had an MRI of that foot 08/22/18; this result is not viewable at [facility]. She denies fever, chills, nausea. She complains of restless leg syndrome. She has trouble staying off of her ulcers and walks. Progress of Wound: Courtesy visit for Dr. Edgar. Ulcers stable at this time. No new concerns at this time. - Physical Exam Vital Signs Temp Pulse Resp BP 98.2 F 97 18 148/86 H 03/22/19 11:53 03/22/19 11:53 03/22/19 11:53 03/22/19 11:53 General: Alert, Oriented x3, Cooperative, No apparent distress Extremities: Capillary Refill Less than 3 Seconds, No Calf Tenderness, Diminished Peripheral Pulses, Edema Skin: Ulcer/ Wound - No purulence, erythema, streaking, odor, or infection. The peripheral skin is hairless and atrophic. The left plantar lateral foot ulcer site probes deep with undermining and significant peripheral callus formation. No purulence, malodor, or streaking cellulitis to either ulcer site at this time. Wound Measurements and Assessment WC - Nurse 1 - General Ulcer Measurement Start: 03/22/19 11:53 Freq: Status: Active Protocol: Activity Type Activity Date Activity User E-Sign Co-Sign Detail Recorded Client Recorded Date Recorded By Document 03/22/19 11:53 RB [id number] 03/22/19 11:56 RB 03/22/19 11:53 Wound Center Nurse 1 [Ulcer Assessment] #5 Left Lateral Plantar -Combined with other wound No -Current Size (cm) - Length 2.3 -Current Size (cm) - Width 2.2 -Current Size (cm) - Depth 0.2 -Total Square Cm 5.06 -Tunneling No -Undermining/Tunneling No -Circular Undermining No -Exudate Amt Medium -Exudate Type Serosanguineous -Wound Margin Thickened -Granulation Amt Large (67-100%) -Granulation Quality [place] -Slough/Fibrin Yes -Necrosis Amt Small (1-33%) -Necrotic Tissue Type Adherent Slough -Structure Exposed N/A -Texture (Natacha-wound Skin Appearance) Assessed -Moisture (Natacha-wound Skin Appearance Assessed ) -Color (Natacha-wound Skin Appearance) Assessed -Temperature (Natacha-wound Skin No Abnormality Appearance) (Pt Warm) -Tenderness on Palpation (Natacha-wound No Skin Appearance) -Ulcer Cleansing Wound Cleanser -Foul Odor after Cleansing No -Anesthetic Used 5% Lidocaine Gel #4 Right Lateral Malleolus-Post Op -Combined with other wound No -Current Size (cm) - Length 4.6 -Current Size (cm) - Width 3 -Current Size (cm) - Depth 0.2 -Total Square Cm 13.8 -Tunneling No -Undermining/Tunneling No -Circular Undermining No -Exudate Amt Small -Exudate Type Serosanguineous -Wound Margin Thickened -Granulation Amt Medium (34-66%) -Granulation Quality [place] -Slough/Fibrin Yes -Necrosis Amt Small (1-33%) -Necrotic Tissue Type Adherent Slough -Structure Exposed N/A -Texture (Natacha-wound Skin Appearance) Callus -Moisture (Natacha-wound Skin Appearance Assessed ) -Color (Natacha-wound Skin Appearance) Assessed -Temperature (Natacha-wound Skin No Abnormality Appearance) (Pt Warm) -Tenderness on Palpation (Natacha-wound No Skin Appearance) -Ulcer Cleansing Wound Cleanser -Foul Odor after Cleansing No -Anesthetic Used 5% Lidocaine Gel [Edema Assessment] -Lower Limb Edema Present Yes -Right Calf (cm) 34 -Right Ankle (cm) 20.5 -Left Calf (cm) 33.5 -Left Ankle (cm) 19.8 WC - Nurse 2 - General Ulcer CM Notes Start: 03/22/19 11:53 Freq: Status: Active Protocol: Activity Type Activity Date Activity User E-Sign Co-Sign Detail Recorded Client Recorded Date Recorded By Document 03/22/19 11:58 AN [id number] 03/22/19 12:07 AN 03/22/19 11:58 Wound Center Nurse 2 [Procedure/Treatment] #5 Left Lateral Plantar -Time 12:05 -Correct Patient Yes -Correct Side, Site, Position Yes -Correct Procedure Yes -Procedure Performed Yes -Type of Procedure Debridement -Clinical Debridement Subcutaneous -Post Debridement Size (cm) - Length 2.1 -Post Debridement Size (cm) - Width 2.2 -Post Debridement Size (cm) - Depth 0.2 -Total Square Cm 4.62 -Wound/Ulcer Outcome Not Healed -Bleeding Controlled with Pressure -Offloading Yes -Type of Offloading Camwalker -Treatment Response Procedure Tolerated Well #4 Right Lateral Malleolus-Post Op -Time 12:05 -Correct Patient Yes -Correct Side, Site, Position Yes -Correct Procedure Yes -Procedure Performed Yes -Type of Procedure Debridement -Clinical Debridement Subcutaneous -Post Debridement Size (cm) - Length 4.5 -Post Debridement Size (cm) - Width 2.9 -Post Debridement Size (cm) - Depth 0.2 -Total Square Cm 13.05 -Wound/Ulcer Outcome Not Healed -Bioengineered Tissue Yes -Type of bioengineered Tissue Apligraf -Expiration Date 04/03/19 -Product Lot Number [id number] -Percent Used 100 -Saline Lot Number [id number] -Bleeding Controlled with Pressure -Offloading Yes -Type of Offloading Surgical Shoe -Treatment Response Procedure Tolerated Well [See Physician Procedure note for Specifics] Pain Scale: 0-10 Numeric [Pain] -Is Patient Pain Free? Yes Musculoskeletal: No Tenderness to Palpation of Joints or Extremities, Muscle Wasting, - - Deformities noted. No pain with ulcer manipulation bilateral Neurological: - - Lack of normal epicritic sensation light touch consistent with neuropathy bilateral lower extremities Psych/Mental Status: Normal Affect, Appropriate Debridement Note Post-Debridement Measurements/Treatment WC - Nurse 2 - General Ulcer CM Notes Start: 03/22/19 11:53 Freq: Status: Active Protocol: Activity Type Activity Date Activity User E-Sign Co-Sign Detail Recorded Client Recorded Date Recorded By Document 03/22/19 11:58 AN [id number] 03/22/19 12:07 AN 03/22/19 11:58 Wound Center Nurse 2 #5 Left Lateral Plantar -Time 12:05 -Correct Patient Yes -Correct Side, Site, Position Yes -Correct Procedure Yes -Procedure Performed Yes -Type of Procedure Debridement -Clinical Debridement Subcutaneous -Post Debridement Size (cm) - Length 2.1 -Post Debridement Size (cm) - Width 2.2 -Post Debridement Size (cm) - Depth 0.2 -Total Square Cm 4.62 -Wound/Ulcer Outcome Not Healed -Bleeding Controlled with Pressure -Offloading Yes -Type of Offloading Camwalker -Treatment Response Procedure Tolerated Well #4 Right Lateral Malleolus-Post Op -Time 12:05 -Correct Patient Yes -Correct Side, Site, Position Yes -Correct Procedure Yes -Procedure Performed Yes -Type of Procedure Debridement -Clinical Debridement Subcutaneous -Post Debridement Size (cm) - Length 4.5 -Post Debridement Size (cm) - Width 2.9 -Post Debridement Size (cm) - Depth 0.2 -Total Square Cm 13.05 -Wound/Ulcer Outcome Not Healed -Bioengineered Tissue Yes -Type of bioengineered Tissue Apligraf -Expiration Date 04/03/19 -Product Lot Number [id number] -Percent Used 100 -Saline Lot Number [id number] -Bleeding Controlled with Pressure -Offloading Yes -Type of Offloading Surgical Shoe -Treatment Response Procedure Tolerated Well Pain Scale: 0-10 Numeric Is Patient Pain Free? Yes Wound debrided: Plantar lateral foot Laterality: Left Type of Debridement: Excisional debridement Anesthesia Used: 5% Lidocaine Gel Depth: in the subcutaneous layer Percentage of wound debrided: 100 Instrument Used: #15 blade Tissue Removed: Fibrotic tissue, adherent slough, biofilm, devitalized subcutaneous tissue Severity: Fat Layer Exposed Amount of bleeding with debridement: Mild Bleeding Controlled with: Pressure Patient tolerated procedure well - Additional Wound Wound debrided: Right lateral ankle Laterality: Right Type of Debridement: Excisional debridement Anesthesia Used: 5% Lidocaine Gel Depth: in the subcutaneous layer Percentage of wound debrided: 100 Instrument Used: #15 blade Tissue Removed: Adherent slough, fibrin Severity: Fat Layer Exposed Amount of bleeding with debridement: Mild Bleeding Controlled with: Pressure Patient tolerated procedure: Patient tolerated procedure well Assessment/Plan Assessment: Diabetic ulcer of right ankle - diabetic ulcer abscess right lateral malleolus. Diabetic foot ulcer associated with type 2 diabetes mellitus. Hemoglobin A1c greater than 9.0%. Type II diabetes mellitus, uncontrolled. varus deformity bilateral lower extremities. malnutrition suspected. delayed healing Plan: Courtesy Visit for Dr. Edgar. Patient was carefully examined and evaluated in detail today. Subcutaneous excisional debridement of both ulcers done as noted in clinical panel. Procedure was well-tolerated. Apligraf applied to the right lateral ankle site followed by Steri-Strips, wound veil, another set of Steri-Strips and a dry sterile dressing. Patient is to keep everything from the wound veil layer and down clean dry and intact for the next week. Left foot ulcer site dressed with Aquacel Ag to the base followed by dry sterile dressing. Patient is to change her dressing in this manner on a daily basis. Offloading strongly recommended. Patient remains noncompliant in this. Optimal blood sugar control and increased protein intake also discussed. All questions were answered and she was advised to call with any further questions or concerns. All signs and symptoms of local and systemic infection were discussed with the patient today. She is instructed to go to the emergency room immediately if she notices any of these. Patient will follow back up with Dr. Edgar in 1 week. This note was generated with [employer] dictation software. It may contain incorrect words, spelling, and punctuation that were not noted in checking the note before signing.
--- NOTE | 2019-03-22 12:20 | PN.PCM_ITS ---
(1) Ulcer of right lower extremity with fat layer exposed Status: Chronic Current Visit: No Code(s): L97.912 - Non-pressure chronic ulcer of unspecified part of right lower leg with fat layer exposed (2) Chronic ulcer of left foot with fat layer exposed Status: Chronic Current Visit: No Code(s): L97.522 - Non-pressure chronic ulcer of other part of left foot with fat layer exposed (3) Acquired varus deformity of right foot Status: Chronic Current Visit: No Code(s): M21.171 - Varus deformity, not el sewhere classified, right ankle (4) Acquired varus deformity of left foot Status: Chronic Current Visit: No Code(s): M21.172 - Varus deformity, not elsewhere classified, left ankle (5) Delayed wound healing Status: Chronic Current Visit: No Code(s): T14.8XXD - Other injury of unspecified body region, subsequent encounter (6) Malnutrition Status: Chronic Current Visit: No Code(s): E46 - Unspecified protein-calorie malnutrition (7) Diabetic foot ulcer associated with type 2 diabetes mellitus Status: Chronic Current Visit: No Qualifiers: Code(s): E11.621 - Type 2 diabetes mellitus with foot ulcer; L97.509 - Non- pressure chronic ulcer of other part of unspecified foot with unspecified severity Type of Wound Chief Complaint: Right ankle diabetic ulcer. left foot ulcer History of Wound: Patient had an I&D of her right lateral ankle infection on 12/22/[address] Allen. She was taken back to surgery on 12/27/[address] Taylor for a surgical preparation right lateral malleolus with incision and drainage and exicisional debridement necrotizing diabetic ulcer abscess (40 cm2). Her wound cultures from 12/27/18 grew Staphylococcu aureus. She was treated with Unasyn and sent to [place] on Keflex and a wound VAC. On 12/28/18 her prealbumin was 9.1. On 12/21/18 her HgA1C was 12.2%. She now has home health to help with wound VAC changes. We applied Appligraft #2 with adaptic wound veil. today on her right lateral ankle. She did not bring her wound VAC to the clinic, will have home health apply it today. This should be beneficial to help with wound healing. She was seeing Dr. Allen for a diabetic foot ulcer on the plantar surface, lateral aspect of her left foot that srinivas was being applied to daily. She would like to have us manage this ucler while she is coming to the wound center so she has one less appointment for her daughter to take her to. she has been using Regranix to the left plantar ulcer. It appears worse with undermining. She was recently switched to aquacel silver and advised to use a knee roller. Instructed her to try and refrain from walking on her left foot. She does have a wheelchair at home. She just got a new CAM walking boot. She had an MRI of that foot 08/22/18; this result is not viewable at [facility]. She denies fever, chills, nausea. She complains of restless leg syndrome. She has trouble staying off of her ulcers and walks. Progress of Wound: Courtesy visit for Dr. Edgar. Ulcers stable at this time. No new concerns at this time. - Physical Exam Vital Signs Temp Pulse Resp BP 98.2 F 97 18 148/86 H 03/22/19 11:53 03/22/19 11:53 03/22/19 11:53 03/22/19 11:53 General: Alert, Oriented x3, Cooperative, No apparent distress Extremities: Capillary Refill Less than 3 Seconds, No Calf Tenderness, Diminished Peripheral Pulses, Edema Skin: Ulcer/ Wound - No purulence, erythema, streaking, odor, or infection. The peripheral skin is hairless and atrophic. The left plantar lateral foot ulcer site probes deep with undermining and significant peripheral callus formation. No purulence, malodor, or streaking cellulitis to either ulcer site at this time. Wound Measurements and Assessment WC - Nurse 1 - General Ulcer Measurement Start: 03/22/19 11:53 Freq: Status: Active Protocol: Activity Type Activity Date Activity User E-Sign Co-Sign Detail Recorded Client Recorded Date Recorded By Document 03/22/19 11:53 [id number] [id number] 03/22/19 11:56 RB 03/22/19 11:53 Wound Center Nurse 1 [Ulcer Assessment] #5 Left Lateral Plantar -Combined with other wound No -Current Size (cm) - Length 2.3 -Current Size (cm) - Width 2.2 -Current Size (cm) - Depth 0.2 -Total Square Cm 5.06 -Tunneling No -Undermining/Tunneling No -Circular Undermining No -Exudate Amt Medium -Exudate Type Serosanguineous -Wound Margin Thickened -Granulation Amt Large (67-100%) -Granulation Quality [place] -Slough/Fibrin Yes -Necrosis Amt Small (1-33%) -Necrotic Tissue Type Adherent Slough -Structure Exposed N/A -Texture (Natacha-wound Skin Appearance) Assessed -Moisture (Natacha-wound Skin Appearance Assessed ) -Color (Natacha-wound Skin Appearance) Assessed -Temperature (Natacha-wound Skin No Abnormality Appearance) (Pt Warm) -Tenderness on Palpation (Natacha-wound No Skin Appearance) -Ulcer Cleansing Wound Cleanser -Foul Odor after Cleansing No -Anesthetic Used 5% Lidocaine Gel #4 Right Lateral Malleolus-Post Op -Combined with other wound No -Current Size (cm) - Length 4.6 -Current Size (cm) - Width 3 -Current Size (cm) - Depth 0.2 -Total Square Cm 13.8 -Tunneling No -Undermining/Tunneling No -Circular Undermining No -Exudate Amt Small -Exudate Type Serosanguineous -Wound Margin Thickened -Granulation Amt Medium (34-66%) -Granulation Quality [place] -Slough/Fibrin Yes -Necrosis Amt Small (1-33%) -Necrotic Tissue Type Adherent Slough -Structure Exposed N/A -Texture (Natacha-wound Skin Appearance) Callus -Moisture (Natacha-wound Skin Appearance Assessed ) -Color (Natacha-wound Skin Appearance) Assessed -Temperature (Natacha-wound Skin No Abnormality Appearance) (Pt Warm) -Tenderness on Palpation (Natacha-wound No Skin Appearance) -Ulcer Cleansing Wound Cleanser -Foul Odor after Cleansing No -Anesthetic Used 5% Lidocaine Gel [Edema Assessment] -Lower Limb Edema Present Yes -Right Calf (cm) 34 -Right Ankle (cm) 20.5 -Left Calf (cm) 33.5 -Left Ankle (cm) 19.8 WC - Nurse 2 - General Ulcer CM Notes Start: 03/22/19 11:53 Freq: Status: Active Protocol: Activity Type Activity Date Activity User E-Sign Co-Sign Detail Recorded Client Recorded Date Recorded By Document 03/22/19 11:58 AN [id number] 03/22/19 12:07 AN 03/22/19 11:58 Wound Center Nurse 2 [Procedure/Treatment] #5 Left Lateral Plantar -Time 12:05 -Correct Patient Yes -Correct Side, Site, Position Yes -Correct Procedure Yes -Procedure Performed Yes -Type of Procedure Debridement -Clinical Debridement Subcutaneous -Post Debridement Size (cm) - Length 2.1 -Post Debridement Size (cm) - Width 2.2 -Post Debridement Size (cm) - Depth 0.2 -Total Square Cm 4.62 -Wound/Ulcer Outcome Not Healed -Bleeding Controlled with Pressure -Offloading Yes -Type of Offloading Camwalker -Treatment Response Procedure Tolerated Well #4 Right Lateral Malleolus-Post Op -Time 12:05 -Correct Patient Yes -Correct Side, Site, Position Yes -Correct Procedure Yes -Procedure Performed Yes -Type of Procedure Debridement -Clinical Debridement Subcutaneous -Post Debridement Size (cm) - Length 4.5 -Post Debridement Size (cm) - Width 2.9 -Post Debridement Size (cm) - Depth 0.2 -Total Square Cm 13.05 -Wound/Ulcer Outcome Not Healed -Bioengineered Tissue Yes -Type of bioengineered Tissue Apligraf -Expiration Date 04/03/19 -Product Lot Number [id number] -Percent Used 100 -Saline Lot Number [id number] -Bleeding Controlled with Pressure -Offloading Yes -Type of Offloading Surgical Shoe -Treatment Response Procedure Tolerated Well [See Physician Procedure note for Specifics] Pain Scale: 0-10 Numeric [Pain] -Is Patient Pain Free? Yes Musculoskeletal: No Tenderness to Palpation of Joints or Extremities, Muscle Wasting, - - Deformities noted. No pain with ulcer manipulation bilateral Neurological: - - Lack of normal epicritic sensation light touch consistent with neuropathy bilateral lower extremities Psych/Mental Status: Normal Affect, Appropriate Debridement Note Post-Debridement Measurements/Treatment WC - Nurse 2 - General Ulcer CM Notes Start: 03/22/19 11:53 Freq: Status: Active Protocol: Activity Type Activity Date Activity User E-Sign Co-Sign Detail Recorded Client Recorded Date Recorded By Document 03/22/19 11:58 AN [id number] 03/22/19 12:07 AN 03/22/19 11:58 Wound Center Nurse 2 #5 Left Lateral Plantar -Time 12:05 -Correct Patient Yes -Correct Side, Site, Position Yes -Correct Procedure Yes -Procedure Performed Yes -Type of Procedure Debridement -Clinical Debridement Subcutaneous -Post Debridement Size (cm) - Length 2.1 -Post Debridement Size (cm) - Width 2.2 -Post Debridement Size (cm) - Depth 0.2 -Total Square Cm 4.62 -Wound/Ulcer Outcome Not Healed -Bleeding Controlled with Pressure -Offloading Yes -Type of Offloading Camwalker -Treatment Response Procedure Tolerated Well #4 Right Lateral Malleolus-Post Op -Time 12:05 -Correct Patient Yes -Correct Side, Site, Position Yes -Correct Procedure Yes -Procedure Performed Yes -Type of Procedure Debridement -Clinical Debridement Subcutaneous -Post Debridement Size (cm) - Length 4.5 -Post Debridement Size (cm) - Width 2.9 -Post Debridement Size (cm) - Depth 0.2 -Total Square Cm 13.05 -Wound/Ulcer Outcome Not Healed -Bioengineered Tissue Yes -Type of bioengineered Tissue Apligraf -Expiration Date 04/03/19 -Product Lot Number [id number] -Percent Used 100 -Saline Lot Number [id number] -Bleeding Controlled with Pressure -Offloading Yes -Type of Offloading Surgical Shoe -Treatment Response Procedure Tolerated Well Pain Scale: 0-10 Numeric Is Patient Pain Free? Yes Wound debrided: Plantar lateral foot Laterality: Left Type of Debridement: Excisional debridement Anesthesia Used: 5% Lidocaine Gel Depth: in the subcutaneous layer Percentage of wound debrided: 100 Instrument Used: #15 blade Tissue Removed: Fibrotic tissue, adherent slough, biofilm, devitalized subcutaneous tissue Severity: Fat Layer Exposed Amount of bleeding with debridement: Mild Bleeding Controlled with: Pressure Patient tolerated procedure well - Additional Wound Wound debrided: Right lateral ankle Laterality: Right Type of Debridement: Excisional debridement Anesthesia Used: 5% Lidocaine Gel Depth: in the subcutaneous layer Percentage of wound debrided: 100 Instrument Used: #15 blade Tissue Removed: Adherent slough, fibrin Severity: Fat Layer Exposed Amount of bleeding with debridement: Mild Bleeding Controlled with: Pressure Patient tolerated procedure: Patient tolerated procedure well Assessment/Plan Assessment: Diabetic ulcer of right ankle - diabetic ulcer abscess right lateral malleolus. Diabetic foot ulcer associated with type 2 diabetes mellitus. Hemoglobin A1c greater than 9.0%. Type II diabetes mellitus, uncontrolled. varus deformity bilateral lower extremities. malnutrition suspected. delayed healing Plan: Courtesy Visit for Dr. Edgar. Patient was carefully examined and evaluated in detail today. Subcutaneous excisional debridement of both ulcers done as noted in clinical panel. Procedure was well-tolerated. Apligraf applied to the right lateral ankle site followed by Steri-Strips, wound veil, another set of Steri-Strips and a dry sterile dressing. Patient is to keep everything from the wound veil layer and down clean dry and intact for the next week. Left foot ulcer site dressed with Aquacel Ag to the base followed by dry sterile dressing. Patient is to change her dressing in this manner on a daily basis. Offloading strongly recommended. Patient remains noncompliant in this. Optimal blood sugar control and increased protein intake also discussed. All questions were answered and she was advised to call with any further questions or concerns. All signs and symptoms of local and systemic infection were discussed with the patient today. She is instructed to go to the emergency room immediately if she notices any of these. Patient will follow back up with Dr. Edgar in 1 week. This note was generated with [employer] dictation software. It may contain incorrect words, spelling, and punctuation that were not noted in checking the note before signing.
[2019-03-28 15:19] VITALS: BP 154/82; PULSE 103; RESP 18; TEMP 36.9; BMI 29.0
--- NOTE | 2019-03-28 17:33 | PCM.WC.PN ---
(1) Chronic ulcer of left foot with fat layer exposed Status: Chronic Current Visit: Yes Code(s): L97.522 - Non-pressure chronic ulcer of other part of left foot with fat layer exposed (2) Ulcer of right lower extremity with fat layer exposed Status: Chronic Current Visit: Yes Code(s): L97.912 - Non-pressure chronic ulcer of unspecified part of right lower leg with fat layer exposed (3) Type 2 diabetes mellitus with diabetic polyneuropathy Status: Chronic Current Visit: Yes Code(s): E11.42 - Type 2 diabetes mellitus with diabetic polyneuropathy (4) Acquired varus deformity of right foot Status: Chronic Current Visit: Yes Code(s): M21.171 - Varus deformity, not elsewhere classified, right ankle (5) Acquired varus deformity of left foot Status: Chronic Current Visit: Yes Code(s): M21.172 - Varus deformity, not elsewhere classified, left ankle (6) Delayed wound healing Status: Chronic Current Visit: Yes Code(s): T14.8XXD - Other injury of unspecified body region, subsequent encounter (7) Malnutrition Status: Chronic Current Visit: Yes Code(s): E46 - Unspecified protein-calorie malnutrition (8) Atherosclerosis of [place] coronary artery of [place] heart without angina pectoris Status: Chronic Current Visit: Yes Code(s): I25.10 - Atherosclerotic heart disease of [place] coronary artery without angina pectoris Comment: Successful PTCA/DARA mid LAD with a 2.25 x 16 Promus Synergy, postdilated throughout with a 2.5 x 8 NC Balloon; 85%-->0%, no dissection and successful PTCA/DARA proximal LAD with a 2.5 x 12 Promus Synergy, post dilated with a 2.5 x 8 NC balloon; 75%-->0%, no dissection on 09/21/2018 @ [facility]. (9) Hemoglobin A1c greater than 9.0% Status: Chronic Current Visit: Yes Code(s): R73.09 - Other abnormal glucose Comment: 12.2 Type of Wound Date of Service: 03/28/19 Chief Complaint: Right ankle diabetic ulcer. left foot ulcer History of Wound: Patient had an I&D of her right lateral ankle infection on 12/22/[address] Allen. She was taken back to surgery on 12/27/[address] Taylor for a surgical preparation right lateral malleolus with incision and drainage and exicisional debridement necrotizing diabetic ulcer abscess (40 cm2). Her wound cultures from 12/27/18 grew Staphylococcu aureus. She was treated with Unasyn and sent to [place] on Keflex and a wound VAC. On 12/28/18 her prealbumin was 9.1. On 12/21/18 her HgA1C was 12.2%. She now has home health to help with wound VAC changes. We applied Appligraft #2 with adaptic wound veil. today on her right lateral ankle. She did not bring her wound VAC to the clinic, will have home health apply it today. This should be beneficial to help with wound healing. She was seeing Dr. Allen for a diabetic foot ulcer on the plantar surface, lateral aspect of her left foot that srinivas was being applied to daily. She would like to have us manage this ucler while she is coming to the wound center so she has one less appointment for her daughter to take her to. she has been using Regranix to the left plantar ulcer. It appears worse with undermining. She was recently switched to aquacel silver and advised to use a knee roller. Instructed her to try and refrain from walking on her left foot. She does have a wheelchair at home. She just got a new CAM walking boot. She had an MRI of that foot 08/22/18; this result is not viewable at [facility]. She denies fever, chills, nausea. She complains of restless leg syndrome. She has trouble staying off of her ulcers and walks. She has an ankle-foot orthotic brace that was custom made and she was previous advised were to the right lower extremity. She previously refused to wear this and will consider at this time. She brought to clinic today for evaluation. Progress of Wound: Improving - Physical Exam Vital Signs Temp Pulse Resp BP 98.4 F 103 H 18 154/82 H 03/28/19 15:19 03/28/19 15:19 03/28/19 15:19 03/28/19 15:19 General: Alert, Oriented x3, Cooperative, No apparent distress Extremities: No cyanosis, Capillary Refill Less than 3 Seconds, No Calf Tenderness - Negative for impressive bilateral, Diminished Peripheral Pulses, Edema, - - Neutral inversion position bilateral lower extremities Skin: Ulcer/ Wound - No purulence, erythema, streaking, odor, or infection. Bilateral lower extremity ulcers are decreasing in size with peripheral epithelialization. Decreased drainage noted to the left foot ulcer site. There is callus formation at the left foot ulcer site. No bogginess or fluctuance Wound Measurements and Assessment WC - Nurse 1 - General Ulcer Measurement Start: 03/22/19 11:53 Freq: Status: Active Protocol: Activity Type Activity Date Activity User E-Sign Co-Sign Detail Recorded Client Recorded Date Recorded By Document 03/28/19 15:19 DL [id number] 03/28/19 15:28 DL 03/28/19 15:19 Wound Center Nurse 1 [Ulcer Assessment] #5 Left Lateral Plantar -Current Size (cm) - Length 2.2 -Current Size (cm) - Width 2.2 -Current Size (cm) - Depth 0.7 -Total Square Cm 4.84 -Photo Taken No -Exudate Amt Medium -Exudate Type Serosanguineous -Wound Margin Thickened -Granulation Amt Large (67-100%) -Granulation Quality Agar -Necrosis Amt Small (1-33%) -Necrotic Tissue Type Adherent Slough -Structure Exposed N/A -Texture (Natacha-wound Skin Appearance) Callus,Scarring -Moisture (Natacha-wound Skin Appearance Maceration ) -Color (Natacha-wound Skin Appearance) Rubor -Temperature (Natacha-wound Skin No Abnormality Appearance) (Pt Warm) -Tenderness on Palpation (Natacha-wound No Skin Appearance) -Ulcer Cleansing Wound Cleanser -Foul Odor after Cleansing No -Anesthetic Used 4% Lidocaine Solution #4 Right Lateral Malleolus-Post Op -Current Size (cm) - Length 3.4 -Current Size (cm) - Width 2.8 -Current Size (cm) - Depth 0.1 -Total Square Cm 9.52 -Photo Taken No -Exudate Amt Medium -Exudate Type Serosanguineous -Wound Margin Distinct, Outline Attached -Granulation Amt Large (67-100%) -Granulation Quality Hyper- granulation,Red -Necrosis Amt Small (1-33%) -Necrotic Tissue Type Adherent Slough -Structure Exposed N/A -Texture (Natacha-wound Skin Appearance) Scarring -Moisture (Natacha-wound Skin Appearance No Abnormality ) -Color (Natacha-wound Skin Appearance) Rubor -Temperature (Natacha-wound Skin No Abnormality Appearance) (Pt Warm) -Tenderness on Palpation (Natacha-wound No Skin Appearance) -Ulcer Cleansing Wound Cleanser -Foul Odor after Cleansing No -Anesthetic Used 4% Lidocaine Solution WC - Nurse 2 - General Ulcer CM Notes Start: 03/22/19 11:53 Freq: Status: Active Protocol: Activity Type Activity Date Activity User E-Sign Co-Sign Detail Recorded Client Recorded Date Recorded By Document 03/28/19 16:56 AN [id number] 03/28/19 16:58 AN 03/28/19 16:56 Wound Center Nurse 2 [Procedure/Treatment] #5 Left Lateral Plantar -Time 16:57 -Correct Patient Yes -Correct Side, Site, Position Yes -Correct Procedure Yes -Procedure Performed Yes -Type of Procedure Debridement -Clinical Debridement Subcutaneous -Post Debridement Size (cm) - Length 2.3 -Post Debridement Size (cm) - Width 2.3 -Post Debridement Size (cm) - Depth 0.8 -Total Square Cm 5.29 -Bleeding Controlled with Pressure -Type of Offloading Camwalker -Treatment Response Procedure Tolerated Well #4 Right Lateral Malleolus-Post Op -Time 16:57 -Correct Patient Yes -Correct Side, Site, Position Yes -Correct Procedure Yes -Procedure Performed Yes -Type of Procedure Debridement -Clinical Debridement Subcutaneous -Post Debridement Size (cm) - Length 3.5 -Post Debridement Size (cm) - Width 2.9 -Post Debridement Size (cm) - Depth 0.1 -Total Square Cm 10.15 -Wound/Ulcer Outcome Not Healed -Type of Offloading Camwalker -Treatment Response Procedure Tolerated Well [See Physician Procedure note for Specifics] Pain Scale: 0-10 Numeric [Pain] -Is Patient Pain Free? Yes Musculoskeletal: No Tenderness to Palpation of Joints or Extremities, Muscle Wasting, - - Bone prominence plantar lateral left foot Neurological: - - Lack of normal epicritic sensation light touch consistent with neuropathy Psych/Mental Status: Normal Affect, Appropriate Debridement Note Post-Debridement Measurements/Treatment WC - Nurse 2 - General Ulcer CM Notes Start: 03/22/19 11:53 Freq: Status: Active Protocol: Activity Type Activity Date Activity User E-Sign Co-Sign Detail Recorded Client Recorded Date Recorded By Document 03/22/19 11:58 AN [id number] 03/22/19 12:07 AN Document 03/28/19 16:56 AN [id number] 03/28/19 16:58 AN 03/22/19 03/28/19 11:58 16:56 Wound Center Nurse 2 #5 Left Lateral Plantar -Time 12:05 16:57 -Correct Patient Yes Yes -Correct Side, Site, Position Yes Yes -Correct Procedure Yes Yes -Procedure Performed Yes Yes -Type of Procedure Debridement Debridement -Clinical Debridement Subcutaneous Subcutaneous -Post Debridement Size (cm) - Length 2.1 2.3 -Post Debridement Size (cm) - Width 2.2 2.3 -Post Debridement Size (cm) - Depth 0.2 0.8 -Total Square Cm 4.62 5.29 -Wound/Ulcer Outcome Not Healed -Bleeding Controlled with Pressure Pressure -Offloading Yes -Type of Offloading Camwalker Camwalker -Treatment Response Procedure Procedure Tolerated Well Tolerated Well #4 Right Lateral Malleolus-Post Op -Time 12:05 16:57 -Correct Patient Yes Yes -Correct Side, Site, Position Yes Yes -Correct Procedure Yes Yes -Procedure Performed Yes Yes -Type of Procedure Debridement Debridement -Clinical Debridement Subcutaneous Subcutaneous -Post Debridement Size (cm) - Length 4.5 3.5 -Post Debridement Size (cm) - Width 2.9 2.9 -Post Debridement Size (cm) - Depth 0.2 0.1 -Total Square Cm 13.05 10.15 -Wound/Ulcer Outcome Not Healed Not Healed -Bioengineered Tissue Yes -Type of bioengineered Tissue Apligraf -Expiration Date 04/03/19 -Product Lot Number [id number] -Percent Used 100 -Saline Lot Number [id number] -Bleeding Controlled with Pressure -Offloading Yes -Type of Offloading Surgical Shoe Camwalker -Treatment Response Procedure Procedure Tolerated Well Tolerated Well Pain Scale: 0-10 Numeric Is Patient Pain Free? Yes Yes Wound debrided: lateral ankle Laterality: Right Wound Grade/Stage: grade 1 Type of Debridement: Excisional debridement Anesthesia Used: 5% Lidocaine Gel Depth: in the subcutaneous layer Percentage of wound debrided: 100 Instrument Used: #15 blade Tissue Removed: fibrous, devitalized subcutaneous, biofilm, slough Severity: Fat Layer Exposed Amount of bleeding with debridement: Mild Bleeding Controlled with: Pressure Patient tolerated procedure well - Additional Wound Wound debrided: plantar lateral foot Laterality: Left Wound Grade/Stage: grade 1 Type of Debridement: Excisional debridement Anesthesia Used: 5% Lidocaine Gel Depth: in the subcutaneous layer Percentage of wound debrided: 100 Instrument Used: #15 blade Tissue Removed: fibrous, devitalized subcutaneous, biofilm, slough, callous Severity: Fat Layer Exposed Amount of bleeding with debridement: Mild Bleeding Controlled with: Pressure Patient tolerated procedure: Patient tolerated procedure well Assessment/Plan Active Problems (Last Updated 01/30/19 @ 09:58 by Zach Mitchell, POST FORM REMOVER-C) Ulcer of right lower extremity with fat layer exposed (Chronic) Chronic ulcer of left foot with fat layer exposed (Chronic) 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) Acquired varus deformity of left foot (Chronic) Delayed wound healing (Chronic) Malnutrition (Chronic) Type 2 diabetes mellitus with diabetic polyneuropathy (Chronic) Atherosclerosis of [place] coronary artery of [place] heart without angina pectoris (Chronic) Successful PTCA/DARA mid LAD with a 2.25 x 16 Promus Synergy, postdilated throughout with a 2.5 x 8 NC Balloon; 85%-->0%, no dissection and successful PTCA/DARA proximal LAD with a 2.5 x 12 Promus Synergy, post dilated with a 2.5 x 8 NC balloon; 75%-->0%, no dissection on 09/21/2018 @ [facility]. Hemoglobin A1c greater than 9.0% (Chronic) 12.2 Assessment: Diabetic ulcer of right ankle - diabetic ulcer abscess right lateral malleolus. Diabetic foot ulcer associated with type 2 diabetes mellitus. Hemoglobin A1c greater than 9.0%. Type II diabetes mellitus, uncontrolled. varus deformity bilateral lower extremities. malnutrition suspected. delayed healing Plan: Patient was carefully examined and evaluated in detail today. Subcutaneous excisional debridement of both ulcers done as noted in clinical panel. Procedure was well-tolerated. Apligraf applied to the right lateral ankle site followed by Steri-Strips, wound veil, another set of Steri-Strips and a dry sterile dressing. Patient is to keep everything from the wound veil layer and down clean dry and intact for the next week. Left foot ulcer site dressed with Srinivas to the base followed by dry sterile dressing. She complained of extra moisture and maceration last week we will try to change wound care products this upcoming week. The patient is to change her dressing in this manner on a daily basis. Offloading strongly recommended. Patient remains noncompliant in this. Optimal blood sugar control and increased protein intake also discussed. All questions were answered and she was advised to call with any further questions or concerns. All signs and symptoms of local and systemic infection were discussed with the patient today. She is instructed to go to the emergency room immediately if she notices any of these. We previously discussed surgical recommendations including exostectomy of the fifth metatarsal base of the left foot, advanced ulcer excision and closure techniques and potential external fixation device application. [place] the next month and a half and understands that she is going to have this reconstructive surgery I recommend she stays during the postoperative time period. She was also advised to wear her ankle-foot orthotic to the right lower extremity to prevent tension on the ankle ulcer site that occurs with any ankle movement. It is noted the brace does have a hinging and this may need to be locked. We will see how she responds initially. To use a cane for ambulation assistance. I answered all of her questions. To return to the wound healing center 1 week or call sooner she has any questions or concerns.
[2019-04-04 15:24] VITALS: BP 153/78; PULSE 125; RESP 16; TEMP 37.5; BMI 29.0
--- NOTE | 2019-04-04 16:13 | PN.PCM_ITS ---
(1) Cellulitis of foot, left Status: Acute Code(s): L03.116 - Cellulitis of left lower limb Comment: treatment has been initiated in ER (2) Chronic ulcer of left foot with necrosis of muscle Status: Chronic Code(s): L97.523 - Non-pressure chronic ulcer of other part of left foot with necrosis of muscle (3) Ulcer of right lower extremity with fat layer exposed Status: Chronic Code(s): L97.912 - Non-pressure chronic ulcer of unspecified part of right lower leg with fat layer exposed (4) Type 2 diabetes mellitus with diabetic polyneuropathy Status: Chronic Code(s): E11.42 - Type 2 diabetes mellitus with diabetic polyneuropathy (5) Acquired varus deformity of right foot Status: Chronic Code(s): M21.171 - Varus deformity, not elsewhere classified, right ankle (6) Acquired varus deformity of left foot Status: Chronic Code(s): M21.172 - Varus deformity, not elsewhere classified, left ankle (7) Delayed wound healing Status: Chronic Code(s): T14.8XXD - Other injury of unspecified body region, subsequent encounter (8) Malnutrition Status: Chronic Code(s): E46 - Unspecified protein-calorie malnutrition (9) Atherosclerosis of [place] coronary artery of [place] heart without angina pectoris Status: Chronic Code(s): I25.10 - Atherosclerotic heart disease of [place] coronary artery without angina pectoris Comment: Successful PTCA/DARA mid LAD with a 2.25 x 16 Promus Synergy, postdilated throughout with a 2.5 x 8 NC Balloon; 85%-->0%, no dissection and successful PTCA/DARA proximal LAD with a 2.5 x 12 Promus Synergy, post dilated with a 2.5 x 8 NC balloon; 75%-->0%, no dissection on 09/21/2018 @ [facility]. (10) Hemoglobin A1c greater than 9.0% Status: Chronic Code(s): R73.09 - Other abnormal glucose Comment: 12.2 Type of Wound Date of Service: 04/04/19 Chief Complaint: Right ankle diabetic ulcer. left foot ulcer History of Wound: Patient had an I&D of her right lateral ankle infection on 12/22/[address] Allen. She was taken back to surgery on 12/27/[address] Taylor for a surgical preparation right lateral malleolus with incision and drainage and exicisional debridement necrotizing diabetic ulcer abscess (40 cm2). Her wound cultures from 12/27/18 grew Staphylococcu aureus. She was treated with Unasyn and sent to [facility] on Keflex and a wound VAC. On 12/28/18 her prealbumin was 9.1. On 12/21/18 her HgA1C was 12.2%. She now has home health to help with wound VAC changes. she has apligraft to right ankle and she relates this came off early. She ulcare has a left foot ulcer that had preveous surgical intervention. She would like to have us manage this ucler while she is coming to the wound center so she has one less appointment for her daughter to take her to. She denies fever, chills, nausea. She complains of restless leg syndrome. She relates the left foot ulcer got worse this past week and she presented to the emergency room on 04/02/19 in which labs were completed and she was started on clindamycin. She relates her chills have since resolved. She denies foot odor. She continues to walk on this site. Her glucose levels have also been very elevated. Progress of Wound: improving right ankle. worse left foot - Physical Exam Vital Signs Temp Pulse Resp BP 99.5 F H 125 H 16 153/78 H 04/04/19 15:24 04/04/19 15:24 04/04/19 15:24 04/04/19 15:24 General: Alert, Oriented x3, Cooperative, No apparent distress Extremities: No cyanosis, Capillary Refill Less than 3 Seconds, No Calf Tenderness - negative gabriel and araiza signs bilateral. bilateral inverted lower extremities with prominent plantar lateral foot. compartments to bilateral lower extremities remain soft to palpate, Diminished Peripheral Pulses, Edema Skin: Ulcer/ Wound - no purulence or odor on expression bilateral. no infection to right lower extremity. the left lower extremity has devitalized tendon/fascia tissue with continued ulcer undermining. This status is worse and there is increased inflammation and edema to plantar ulcer site. there is not any erythema, streaking, fluctuance or boginess on palpation, - - the peripheral skin is hairless and atrophic bilateral lower extremities Wound Measurements and Assessment WC - Nurse 1 - General Ulcer Measurement Start: 03/22/19 11:53 Freq: Status: Active Protocol: Activity Type Activity Date Activity User E-Sign Co-Sign Detail Recorded Client Recorded Date Recorded By Document 04/04/19 15:24 [facility] [id number] 04/04/19 15:37 [facility] 04/04/19 15:24 Wound Center Nurse 1 [Ulcer Assessment] #5 Left Lateral Plantar -Combined with other wound No -Current Size (cm) - Length 2.7 -Current Size (cm) - Width 2.5 -Current Size (cm) - Depth 1 -Total Square Cm 6.75 -Photo Taken No -Epithelialization None Present -Tunneling No -Undermining/Tunneling No -Circular Undermining No -Exudate Amt Medium -Exudate Type Serosanguineous -Wound Margin Distinct, Outline Attached -Granulation Amt Small (1-33%) -Granulation Quality Red -Slough/Fibrin Yes -Necrosis Amt Large (67-100%) -Necrotic Tissue Type Adherent Slough -Texture (Natacha-wound Skin Appearance) Assessed,Callus ,Localized Edema,Scarring -Moisture (Natacha-wound Skin Appearance Assessed,Dry/ ) Scaly -Color (Natacha-wound Skin Appearance) Assessed, Erythema -Temperature (Natacha-wound Skin No Abnormality Appearance) (Pt Warm) -Tenderness on Palpation (Natacha-wound Yes Skin Appearance) -Ulcer Cleansing soap and water -Foul Odor after Cleansing No -Anesthetic Used 5% Lidocaine Gel #4 Right Lateral Malleolus-Post Op -Combined with other wound No -Current Size (cm) - Length 4.5 -Current Size (cm) - Width 1.5 -Current Size (cm) - Depth 0.1 -Total Square Cm 6.75 -Photo Taken No -Epithelialization None Present -Tunneling No -Undermining/Tunneling No -Circular Undermining No -Exudate Amt Small -Exudate Type Serous -Wound Margin Flat & Intact -Granulation Amt Large (67-100%) -Granulation Quality [place] -Slough/Fibrin No -Necrosis Amt None Present (0 %) -Texture (Natacha-wound Skin Appearance) Assessed, Localized Edema ,Scarring -Moisture (Natacha-wound Skin Appearance Assessed ) -Color (Natacha-wound Skin Appearance) Assessed -Temperature (Natacha-wound Skin No Abnormality Appearance) (Pt Warm) -Tenderness on Palpation (Natacha-wound Yes Skin Appearance) -Ulcer Cleansing soap and water -Foul Odor after Cleansing No -Anesthetic Used 5% Lidocaine Gel WC - Nurse 2 - General Ulcer CM Notes Start: 03/22/19 11:53 Freq: Status: Active Protocol: Activity Type Activity Date Activity User E-Sign Co-Sign Detail Recorded Client Recorded Date Recorded By Document 04/04/19 15:56 JF [id number] 04/04/19 16:01 L[facility] 04/04/19 15:56 Wound Center Nurse 2 [Procedure/Treatment] #5 Left Lateral Plantar -Time 15:57 -Correct Patient Yes -Correct Side, Site, Position Yes -Correct Procedure Yes -Procedure Performed Yes -Type of Procedure Debridement -Clinical Debridement Subcutaneous -Post Debridement Size (cm) - Length 2.8 -Post Debridement Size (cm) - Width 2.5 -Post Debridement Size (cm) - Depth 1.0 -Total Square Cm 7.00 -Wound/Ulcer Outcome Not Healed -Ulcer Cleansing Rinsed/ Irrigated with Saline -Foul Odor after Cleansing No -Bioengineered Tissue No -Bleeding Controlled with Pressure -Offloading Yes -Type of Offloading Knee Walker -Treatment Response Procedure Tolerated Well #4 Right Lateral Malleolus-Post Op -Time 15:57 -Correct Patient Yes -Correct Side, Site, Position Yes -Correct Procedure Yes -Procedure Performed Yes -Type of Procedure Debridement -Clinical Debridement Subcutaneous -Post Debridement Size (cm) - Length 4.5 -Post Debridement Size (cm) - Width 1.6 -Post Debridement Size (cm) - Depth 0.2 -Total Square Cm 7.20 -Wound/Ulcer Outcome Not Healed -Ulcer Cleansing Rinsed/ Irrigated with Saline -Foul Odor after Cleansing No -Bioengineered Tissue No -Bleeding Controlled with Pressure -Offloading No -Treatment Response Procedure Tolerated Well [See Physician Procedure note for Specifics] Pain Scale: 0-10 Numeric [Pain] -Is Patient Pain Free? Yes Musculoskeletal: No Tenderness to Palpation of Joints or Extremities, Muscle Wasting, - Neurological: - - lack of epicritic sensation via light touch consistent with neuropathy bilateral lower extremities Psych/Mental Status: Normal Affect, Appropriate Debridement Note Post-Debridement Measurements/Treatment WC - Nurse 2 - General Ulcer CM Notes Start: 03/22/19 11:53 Freq: Status: Active Protocol: Activity Type Activity Date Activity User E-Sign Co-Sign Detail Recorded Client Recorded Date Recorded By Document 03/22/19 11:58 AN [id number] 03/22/19 12:07 AN Document 03/28/19 16:56 AN [id number] 03/28/19 16:58 AN Document 04/04/19 15:56 [id number] 04/04/19 16:01 JF 03/22/19 03/28/19 04/04/19 11:58 16:56 15:56 Wound Center Nurse 2 #5 Left Lateral Plantar -Time 12:05 16:57 15:57 -Correct Patient Yes Yes Yes -Correct Side, Site, Position Yes Yes Yes -Correct Procedure Yes Yes Yes -Procedure Performed Yes Yes Yes -Type of Procedure Debridement Debridement Debridement -Clinical Debridement Subcutaneous Subcutaneous Subcutaneous -Post Debridement Size (cm) - Length 2.1 2.3 2.8 -Post Debridement Size (cm) - Width 2.2 2.3 2.5 -Post Debridement Size (cm) - Depth 0.2 0.8 1.0 -Total Square Cm 4.62 5.29 7.00 -Wound/Ulcer Outcome Not Healed Not Healed -Ulcer Cleansing Rinsed/ Irrigated with Saline -Foul Odor after Cleansing No -Bioengineered Tissue No -Bleeding Controlled with Pressure Pressure Pressure -Offloading Yes Yes -Type of Offloading Camwalker Camwalker Knee Walker -Treatment Response Procedure Procedure Procedure Tolerated Well Tolerated Well Tolerated Well #4 Right Lateral Malleolus-Post Op -Time 12:05 16:57 15:57 -Correct Patient Yes Yes Yes -Correct Side, Site, Position Yes Yes Yes -Correct Procedure Yes Yes Yes -Procedure Performed Yes Yes Yes -Type of Procedure Debridement Debridement Debridement -Clinical Debridement Subcutaneous Subcutaneous Subcutaneous -Post Debridement Size (cm) - Length 4.5 3.5 4.5 -Post Debridement Size (cm) - Width 2.9 2.9 1.6 -Post Debridement Size (cm) - Depth 0.2 0.1 0.2 -Total Square Cm 13.05 10.15 7.20 -Wound/Ulcer Outcome Not Healed Not Healed Not Healed -Ulcer Cleansing Rinsed/ Irrigated with Saline -Foul Odor after Cleansing No -Bioengineered Tissue Yes No -Type of bioengineered Tissue Apligraf -Expiration Date 04/03/19 -Product Lot Number [id number] -Percent Used 100 -Saline Lot Number [id number] -Bleeding Controlled with Pressure Pressure -Offloading Yes No -Type of Offloading Surgical Shoe Camwalker -Treatment Response Procedure Procedure Procedure Tolerated Well Tolerated Well Tolerated Well Pain Scale: 0-10 Numeric Is Patient Pain Free? Yes Yes Yes Wound debrided: lateral ankle Laterality: Right Wound Grade/Stage: grade 1 Type of Debridement: Excisional debridement Anesthesia Used: 5% Lidocaine Gel Depth: in the subcutaneous layer Percentage of wound debrided: 100 Instrument Used: #15 blade Tissue Removed: fibrous, devitalized subcutaneous, biofilm, slough Severity: Fat Layer Exposed Amount of bleeding with debridement: Mild Bleeding Controlled with: Pressure Patient tolerated procedure well - Additional Wound Wound debrided: plantar lateral foot Laterality: Left Wound Grade/Stage: grade 3 Type of Debridement: Excisional debridement Anesthesia Used: 5% Lidocaine Gel Depth: in the subcutaneous layer Percentage of wound debrided: 100 Instrument Used: #15 blade Tissue Removed: fibrous, devitalized subcutaneous/tendon/fascia, biofilm, slough, callous Severity: Necrosis of Muscle Amount of bleeding with debridement: Moderate Bleeding Controlled with: Pressure, Compression and gauze Patient tolerated procedure: Patient tolerated procedure well Assessment/Plan Assessment: Diabetic ulcer of right ankle with fat layer exposed - right lateral malleolus, grade 1. Diabetic foot ulcer plantar lateral foot associated with type 2 diabetes mellitus, grade 3 (worse status noted today). recent cellulitis treated with oral antiboitics initiated in emergency room. Hemoglobin A1c greater than 9.0%. Type II diabetes mellitus, uncontrolled. varus deformity bilateral lower extremities. malnutrition suspected. delayed healing Plan: Patient was carefully examined and evaluated in detail today. Subcutaneous excisional debridement of both ulcers done and also tendon/devitalized fasia was debrided from left foot as noted in clinical panel. Procedure was well- tolerated. Her apligraft was not kept in place to the right ankle as advised. However this ulcer has a glazed appearance and a simple dressing was applied to allow continued incorportation of any remnant advanced product. This site appears improved and stable. Left foot ulcer site dressed with betadine soaked gauze to the base followed by dry sterile dressing after debridement was performed. wound vac placed on hold. There is deteriorization noted that has since been stabilized with the antibiotics she started after going to the ER last week. Although she did state she could not get a ride to get her antibitoics until yesterday (Alyssia). Her diagnostic data was reviewed from her ER visit including mild anemia and hyperglycemia of almost 500 mg/dL. A culture was obtained today for aerobic, anearobic, acid fast, fungal, mrsa pcr with the results pending. To continue antibiotics and monitor for any worsening status. Offloading strongly recommended. Patient remains noncompliant in this. Optimal blood sugar control and increased protein intake also discussed. All questions were answered and she was advised to call with any further questions or concerns. She is instructed to go to the emergency room immediately if she notices any of these. We previously discussed surgical recommendations including exostectomy of the fifth metatarsal base of the left foot, advanced ulcer excision and closure techniques and potential external fixation device application. [place] and understands that she is going to have this reconstructive surgery I recommend she stays during the postoperative time period. She was also advised to wear her ankle-foot orthotic to the right lower extremity to prevent tension on the ankle ulcer site that occurs with any ankle movement. It is noted the brace does have a hinging and this may need to be locked. She has used the brace and this is going ok so far To use a cane for ambulation assistance. I answered all of her questions. To return to the wound healing center 1 week or call sooner she has any questions or concerns.
== END 2019-04-08 23:59 ==
LOC: WC 15:15
PROVIDERS: Family Provider Family Medicine; PCP Family Medicine; Referring Provider Podiatrist; Visit Provider Podiatrist
DX: E11.621 Type 2 diabetes mellitus with foot ulcer (principal); L97.522 Non-pressure chronic ulcer of other part of left foot with fat layer exposed; M21.171 Varus deformity, not elsewhere classified, right ankle; M21.172 Varus deformity, not elsewhere classified, left ankle; E11.622 Type 2 diabetes mellitus with other skin ulcer; L97.312 Non-pressure chronic ulcer of right ankle with fat layer exposed; G25.81 Restless legs syndrome; L84 Corns and callosities; E11.65 Type 2 diabetes mellitus with hyperglycemia; Z91.19 Patient's noncompliance with other medical treatment and regimen; I25.10 Atherosclerotic heart disease of native coronary artery without angina pectoris; E11.42 Type 2 diabetes mellitus with diabetic polyneuropathy
CPT/HCPCS: 11042; 11043; 15271; 87015; 87070; 87075; 87077; 87101; 87116; 87176; 87186; 87205; 87206; Q4101

== ENCOUNTER 2019-04-07 14:42 | Inpatient (IN) | payer MEDICARE, MEDICAID, SELFPAY ==
[2018-09-21 13:23] VITALS: BMI 29.3
[2019-04-07] VITALS (7 sets, daily range): BP systolic 130–146; BP diastolic 68–80; PULSE 87–99; RESP 16–18; TEMP 36.5–37.6; O2SAT 95–98; BMI 29.9
--- NOTE | 2019-04-07 15:17 | RAD_ITS ---
STUDY: X-RAY - LEFT FOOT CLINICAL: Female, 53 years old. Infection of the lateral foot, diabetes TECHNIQUE: 3 view(s) of the foot. COMPARISON: 04/02/2019 FINDINGS: Normal talus, calcaneus, and tarsal bones. Normal visualized subtalar, talonavicular, calcaneocuboid, tarsal and tarsometatarsal articulations. 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 Normal metatarsophalangeal joint of the great toe. Normal tibial and fibular sesamoid bones. Normal interphalangeal joint of the great toe. Normal phalanges of the great toe. Normal second through fifth metatarsophalangeal joints. Normal interphalangeal joints and phalanges of the lesser toes. The soft tissue structures are otherwise unremarkable. RAD/Foot min 3 Views IMPRESSION: 1. Stable soft tissue swelling and ulcer of the lateral left foot 2. No alvarado bony destruction. 3. Partial metatarsal amputation. Electronically Signed: Shan Cadet MD at 16:01 EDT , Service support ,
--- NOTE | 2019-04-07 15:21 | ED.VISSUMM ---
- ER Visit Summary Date of Service: 04/07/19 Chief Complaint: Wound to left foot History of Present Illness: The patient is a 53 F diabetic who presents for evaluation of a chronic left foot wound. She is currently seeing the wound center for this. She was seen 3 days ago by . At that time she had some debridement done. Sent for culture which grew out Staphylococcus aureus and Streptococcus agalactiae. She states the wound has worsened and large amount of tissue fell off today. There is new increased redness and swelling. She has been doing Betadine soaked gauze over the wound. She has a walking boot and has tried to stay off of it as much as she can. Last hemoglobin A1c that I am aware of was greater than 12. She states her blood sugars have been elevated because of infection. Physical Examination: Afebrile vital signs are stable Gen: Well-nourished well-developed Head: Normocephalic atraumatic Eyes: Perrl EOMI ENT: TMs clear no rhinorrhea moist mucous membranes Neck: Supple no lymphadenopathy no JVD nontender CVS: Regular rate rhythm no murmurs normal S1-S2 Respiratory: No distress clear to auscultation bilaterally chest nontender Abdomen: Soft nontender nondistended normal bowel sounds no masses Back: Nontender Extremity: There is a large tissue defect on the plantar/lateral surface of the left foot. There is surrounding erythema and swelling. There is no lymphangitic streaking. The defect appears to be down to muscle. Skin: Normal color no rash Neuro: alert orientated ?3 CN II-XII intact normal strength sensation reflexes gait cerebellar Psych: Normal affect normal mood Test Results: White count is normal. Lactic acid normal. Blood sugar 386. X-rays do not reveal any obvious osteomyelitis. Emergency Department Course and Treatment: Based on cultures patient received vancomycin. I spoke with podiatry (Dr. Guadarrama) and our hospitalist (Dr. Prado). Our plan will be admission into the hospital. Impression: 1. Diabetic foot ulcer 2. Cellulitis left foot This note was generated with [employer]ation software. It may contain incorrect words, spelling, and punctuation that were not noted in review of the chart prior to signing ED Disposition - Plan for ED Patient: Referrals: Raúl Eric MD [Primary Care Provider] -
[2019-04-07 15:51] LABS: International Normalized Ratio 1.2; Prothrombin Time (Protime)PT. 14.7 SECONDS (11.7-14.9)
[2019-04-07 15:52] LABS: Partial Thromboplast Time 35.3 Seconds (24.1-36.2)
[2019-04-07 15:56] LABS: Absolute Lymphocyte Count 0.58 X10^3/ul (0.83-4.51); Absolute Neutrophil Count 5.1 X10^3/uL (2.0-7.7); Basophil# 0.03 X10^3/uL; Basophil% 0.5 % (0-1); Eosinophil# 0.14 X10^3/uL; Eosinophils% 2.2 % (0-5); Hematocrit 30.6 % (37-47); Hemoglobin 9.7 g/dl (12.0-15.0); Lymphocyte # 0.58 X10^3/ul (4.0); Lymphocyte % 9.3 % (19-41); Mean Corp Hgb Conc 31.7 g/gl (32-36); Mean Corpuscular Hgb 26.4 pg (27.0-32.0); Mean Corpuscular Volume 83.2 fL (81-99); Mean Platelet Vol. 10.1 fl (6.2-12.0); Monocyte# 0.42 X10^3/uL; Monocyte% 6.7 % (0-10); Neutrophil # 5.06 X10^3/uL (2.7-7.7); Neutrophil % 81.1 % (47-70); POSITIVE COUNT NO; POSITIVE DIFFERENTIAL YES; POSITIVE MORPHOLOGY NO; Platelet Count 370 K/mm3 (150-450); RBC Distribution Width CV 14.2 % (11.6-14.6); Red Blood Count 3.68 M/mm3 (4.2-5.4); White Blood Count 6.2 K/mm3 (4.4-11.0)
[2019-04-07 15:57] LABS: Differential Indicated SCAN CRITERIA MET
[2019-04-07 16:04] LABS: Lactic Acid 1.1 mmol/L (0.4-2.0)
[2019-04-07 16:11] LABS: Differential Comment SCANNED
[2019-04-07 16:18] LABS: ALB/GLOB Ratio 0.5 RATIO (0.9-2.4); AST(SGOT) 25 U/L (15-37); Alanine Aminotransfer ALT/SGPT 23 U/L (13-56); Albumin, Serum 2.7 g/dL (3.2-5.0); Alkaline Phosphatase 174 U/L (45-117); Anion Gap 5 (5-15); BUN 23 mg/dL (7-18); BUN/Creat Ratio 19.3 RATIO (10-20); Calcium,Total 9.2 mg/dL (8.5-10.1); Chloride 98 mmol/L (98-107); Creatinine, Serum 1.19 mg/dL (0.55-1.02); EST Glomerular Filtration Rate 50 mL/min (>60); Est Glom Filt Rate - Afr Amer 61 mL/min (>60); Estimated Creatinine Clearance 51.18 ml/min; Globulin 5.2 g/dL (2.2-4.2); Glucose 386 mg/dL (74-106); Potassium 4.8 mmol/L (3.5-5.1); Protein, Total 7.9 g/dL (6.4-8.2); Sodium Level 130 mmol/L (136-145)
--- NOTE | 2019-04-07 18:10 | NURSING ---
pt to [facility]. pt c/o of being incontinent of urine. inquired as if she is normally incontinent and pt replies yes. this has been a little more for the last 3 days. inquired if she has reached out to her PCP to share her concerns- pt replies she has not/did not notify her pcp.
--- NOTE | 2019-04-07 18:21 | HP.PCM_ITS ---
Problem List (1) Ulcer of right lower extremity with fat layer exposed Status: Chronic History of Present Illness Date of Admission: 04/07/19 Chief Complaint: foot wound The patient is a 53 year old F who was caring for her known chronic diabetic foot wound and then when she was caring for it noted that much the tissue had sloughed off today. Presented to the emergency room because of this. Patient had a very deep wound and review of cultures showed group B strep and MSSA from the 26. Patient did receive a vancomycin. Patient was on clindamycin. Patient has neuropathy and really does not have any pain there just has some numbness in her feet. 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 Atherosclerosis of [place] coronary artery of [place] heart without angina pectoris (Chronic) Successful PTCA/DARA mid LAD with a 2.25 x 16 Promus Synergy, postdilated throughout with a 2.5 x 8 NC Balloon; 85%-->0%, no dissection and successful PTCA/DARA proximal LAD with a 2.5 x 12 Promus Synergy, post dilated with a 2.5 x 8 NC balloon; 75%-->0%, no dissection on 09/21/2018 @ [facility]. Hemoglobin A1c greater than 9.0% (Chronic) 12.2 Diabetic ulcer of right ankle (Chronic) diabetic ulcer abscess right lateral malleolus Abscess of right lower leg (Chronic) diabetic ulcer abscess right lateral malleolus HTN (hypertension) (Chronic) HLD (hyperlipidemia) (Chronic) Neuropathic pain (Chronic) GERD (gastroesophageal reflux disease) (Chronic) Hypomagnesemia (Chronic) Back pain, chronic (Chronic) Depression (Chronic) Diabetic foot ulcer associated with type 2 diabetes mellitus (Chronic) RLS (restless legs syndrome) (Chronic) Type II diabetes mellitus, uncontrolled (Chronic) Anxiety state (Chronic) Medical History: Medical History (Last Reviewed 04/07/19 @ 18:22 by Kali Prado DO) Atherosclerosis of [place] coronary artery of [place] heart without angina pectoris (Chronic) I25.10 Successful PTCA/DARA mid LAD with a 2.25 x 16 Promus Synergy, postdilated throughout with a 2.5 x 8 NC Balloon; 85%-->0%, no dissection and successful PTCA/DARA proximal LAD with a 2.5 x 12 Promus Synergy, post dilated with a 2.5 x 8 NC balloon; 75%-->0%, no dissection on 09/21/2018 @ [facility]. Necrotizing soft tissue infection (Acute) M79.89 Diabetic ulcer of right ankle (Chronic) E11.622, L97.319 diabetic ulcer abscess right lateral malleolus Abscess of right lower leg (Chronic) L02.415 diabetic ulcer abscess right lateral malleolus Chest pain (Resolved) R07.9 Osteomyelitis (Resolved) M86.9 Severe sepsis (Acute) A41.9, R65.20 Wound of foot (Acute) S91.309A HTN (hypertension) (Chronic) I10 NSTEMI (non-ST elevated myocardial infarction) (Resolved) I21.4 HLD (hyperlipidemia) (Chronic) E78.5 Neuropathic pain (Chronic) M79.2 GERD (gastroesophageal reflux disease) (Chronic) K21.9 Hypomagnesemia (Chronic) E83.42 Back pain, chronic (Chronic) M54.9, G89.29 Depression (Chronic) F32.9 Diabetic foot ulcer associated with type 2 diabetes mellitus (Chronic) E11.621, L97.509 RLS (restless legs syndrome) (Chronic) Type II diabetes mellitus, uncontrolled (Chronic) E11.65 Anxiety state (Chronic) F41.1 Allergies Penicillins Allergy (Verified 04/07/19 14:43) Shortness of breath metronidazole Adverse Reaction (Verified 04/07/19 14:43) Nausea OXYCONTIN Allergy (Uncoded 04/07/19 14:43) Shortness of breath Home Medications: Ambulatory Orders Medication Instructions Recorded Ascorbic Acid [Vitamin C] 500 mg PO DAILY 09/20/18 Gabapentin [Neurontin] 900 mg PO TIDCM 09/20/18 Ropinirole HCl [Requip] 3 mg PO BID 09/20/18 Atorvastatin Calcium [Lipitor] 80 mg PO QHS 09/23/18 Lisinopril [Zestril] 5 mg PO DAILY 09/23/18 Metoprolol Tartrate [Lopressor 12.5 mg PO BID 09/23/18 (beta kunal)] escitalopram 10 mg tablet 10 mg PO DAILY 09/28/18 Clopidogrel Bisulfate [Plavix] 75 mg PO DAILY 12/21/18 Metoclopramide [Reglan] 10 mg PO TID PRN #30 tablet 12/29/18 Acetaminophen [Tylenol Tablet] 650 mg PO Q6H PRN PRN 01/04/19 Insulin Lispro [Humalog KwikPen] See Protocol SC TIDCM 01/04/19 Insulin Lispro [Humalog KwikPen] unit SQ TIDCM 01/04/19 Oxycodone HCl 5 mg PO TID 01/04/19 Calcium Carbonate [Tums] 500 mg PO Q4H PRN PRN 04/02/19 Clindamycin HCl [Cleocin] 300 mg PO Q6H #40 cap 04/02/19 Insulin Glargine,Hum.rec.anlog 30 unit SQ DAILY 04/02/19 [Lantus Solostar] Surgical History: Surgical History (Last Reviewed 04/07/19 @ 18:22 by Kali Prado DO) Stented coronary artery (Chronic) Z95.5 Successful PTCA/DARA mid LAD with a 2.25 x 16 Promus Synergy, postdilated throughout with a 2.5 x 8 NC Balloon; 85%-->0%, no dissection and successful PTCA/DARA proximal LAD with a 2.5 x 12 Promus Synergy, post dilated with a 2.5 x 8 NC balloon; 75%-->0%, no dissection on 09/21/2018 @ [facility]. Surgical History: - - Severel R foot toe amputations and I+Ds, BL carpal tunnel surgery 1994, right shoulder surgery in 1994, section x2, most recently LLE I+D. 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 She had had multiple strokes preceding that. Patient had 3 brothers who had bypass surgery in their 50s. Paternal History Items: - - Patient states her father when she was 5 years old, denies known medical history, denies known cardiac history. Sibling History Items: - - She has one brother who is secondary to cancer and she does not know what kind of cancer he had. She also has 3 brothers with a history of cardiovascular disease, stents and coronary artery bypass grafting. Review of Systems Constitutional: Reports: Chills - 2 days prior. Denies: Anorexia, Fever Eyes: Denies: Blurred vision, Double vision HEENT: Denies: Head Aches, Sinus Congestion, Sinus Drainage Cardiovascular: Denies: Chest Pain, Palpitations Respiratory: Reports: Cough. Denies: Shortness of Breath Gastrointestinal: Reports: Nausea. Denies: Abdominal Pain, Vomiting Genitourinary: Denies: Dysuria Musculoskeletal: Denies: Joint Pain, Joint Tenderness Skin: Denies: Rash, Wounds Neurological: Denies: Numbness, Tingling, Focal weakness Psychiatric: Denies: Anxiety, Depression Hematologic/ Lymphatic: Denies: Easy Bruising, Easy Bleeding, Hx of blood clot Comment: A 10 point review of systems were negative except as mentioned in the history of present illness and the other review of systems. VTE Information - Inpt Only VTE Present on Admission: No VTE Mechan Device Prophylaxis: None VTE Pharm Prophylaxis ordered?: Yes - Physical Exam General: Alert, Cooperative, No apparent distress HEENT: Atraumatic, Normocephalic Oral: Moist Mucosa, No Gingival or Mucosal Lesions/ Ulcerations Neck: No Nodes, Thyroid Normal Size and Texture Lungs: Clear to auscultation, Normal air movement, No rhonchi, No wheeze, No rales Cardiovascular: Regular rate, Regular Rhythm, Normal S1, Normal S2, No murmurs Abdomen: Bowel Sounds Present, Soft, Non Tender, Non-Distended Extremities: No edema, No Calf Tenderness Skin: - - Large plantar and lateral aspect of her left foot ulcer. Its least stage III-IV. No purulence could be expressed. No surrounding erythema. No odor. Right foot and ankle bandaged, did not remove. Musculoskeletal: No Tenderness to Palpation of Joints or Extremities, No Muscle Wasting Neurological: Neuro grossly intact, - - Mini sensation and left lower extremity Psych/Mental Status: Normal Affect, Appropriate Vital Signs Temp Pulse Resp BP Pulse Ox 37.3 C 87 18 137/70 H 97 04/07/19 17:57 04/07/19 17:57 04/07/19 17:57 04/07/19 17:57 04/07/19 17:57 Oxygen Delivery Method Room Air Weight: 84.368 kg Body Mass Index (BMI) 29.9 Finger Stick Blood Glucose 182 Laboratory Tests Past 24 Hrs 04/07/19 04/07/19 04/07/19 15:30 15:30 15:30 WBC 6.2 RBC 3.68 L Hgb 9.7 L Hct 30.6 L MCV 83.2 MCH 26.4 L MCHC 31.7 L RDW 14.2 RDW Differential 43.0 Plt Count 370 MPV 10.1 Immature Gran % (Auto) 0.200 Neut % (Auto) 81.1 H Lymph % (Auto) 9.3 L [place] % (Auto) 6.7 Eos % (Auto) 2.2 Baso % (Auto) 0.5 Absolute Neuts (auto) 5.1 Absolute Lymphs (auto) 0.58 L Total Counted Not Reportable Differential Comment SCANNED PT 14.7 INR 1.2 APTT 35.3 Sodium 130 L Potassium 4.8 Chloride 98 Carbon Dioxide 27.0 Anion Gap 5 BUN 23 H Creatinine 1.19 H Estim Creat Clear Calc 51.18 Est GFR (MDRD) Af Amer 61 Est GFR (MDRD) Non-Af 50 L BUN/Creatinine Ratio 19.3 Glucose 386 H Lactic Acid Calcium 9.2 Total Bilirubin 0.30 AST 25 ALT 23 Alkaline Phosphatase 174 H Total Protein 7.9 Albumin 2.7 L Globulin 5.2 H Albumin/Globulin Ratio 0.5 L 04/07/19 15:30 WBC RBC Hgb Hct MCV MCH MCHC RDW RDW Differential Plt Count MPV Immature Gran % (Auto) Neut % (Auto) Lymph % (Auto) [place] % (Auto) Eos % (Auto) Baso % (Auto) Absolute Neuts (auto) Absolute Lymphs (auto) Total Counted Differential Comment PT INR APTT Sodium Potassium Chloride Carbon Dioxide Anion Gap BUN Creatinine Estim Creat Clear Calc Est GFR (MDRD) Af Amer Est GFR (MDRD) Non-Af BUN/Creatinine Ratio Glucose Lactic Acid 1.1 Calcium Total Bilirubin AST ALT Alkaline Phosphatase Total Protein Albumin Globulin Albumin/Globulin Ratio Assessment/Plan All Active Problems (Last Updated 01/30/19 @ 09:58 by Zach Mitchell, DEMO COORDINATOR-C) Cellulitis of foot, left (Acute) Necrotizing soft tissue infection (Acute) Intractable nausea and vomiting (Acute) Chest pain (Resolved) Osteomyelitis (Resolved) Severe sepsis (Acute) Wound of foot (Acute) NSTEMI (non-ST elevated myocardial infarction) (Resolved) 1. Diabetic foot wound * Culture positive on the 26 for group B strep as well as MSSA. Both sensitive to vancomycin * We will continue with vancomycin * Consult podiatry and infectious disease. Dr. Guadarrama was contacted through the emergency room * Check ESR and CRP * Check MRI of her foot to evaluate for osteomyelitis * Foot x-ray showed no alvarado bony destruction * Nonweightbearing for now * Wound care consultation * Patient advised that she would likely require some surgery whether be a debridement or even partial amputation will be determined based on MRI results. * Check ankle-brachial index studies to see if she is vascularly intact to undergo surgery. 2. Diabetes mellitus type 2 * Uncontrolled * A1c from December 21 was 12.2 * Continue her basal insulin as well as sliding scale. Adjust insulin regimen accordingly. * Overall complicates her care. 3. Hypertension: Stable. Continue with lisinopril. 4. VTE prophylaxis with Lovenox. Moderate risk. Code Visit Inpatient E&M: 23752 Init Hosp L3
--- NOTE | 2019-04-07 18:49 | PCM.CONS.GEN ---
Reason for Consult Date of Consultation: 04/07/19 Reason for Consultation: Left foot ulcer and infection History of Present Illness: The patient is a 53 year old female with uncontrolled diabetes, previous right and left foot ulcerations and previous surgeries, nonadherence was admitted today for worsening left foot ulceration and infection. Patient relates she has had left foot and right ankle ulcerations since August 2018, relates she was following with Dr. Allen, as well as Dr. Taylor, relates she has been receiving grafts on right ankle and has been healing, relates left foot was healing until get got it wet and it opened up more. She now follows with Dr. Edgar at the wound center. Cultures obtained on 04/04/19 growing staph aureus and strep, patient was on oral antibiotics, but ulceration on left foot worsening with infection and she presented to ER. She was subsequently admitted due to worsening. Patient relates she is very stressed out at home, has to take care of her 5 year old grandson because her daughter works and goes out on dates. Patient relates her lives in [place] (states he has never been to [place]). She has been thinking about going to [place] to be with her , but can't due to her foot. She admits to walking all over her foot, although she is suppose to be off of her foot. She has uncontrolled diabetes, she relates she does not understand why, she relates I eat a healthy diet. She then states she only ate a fish sandwich and fries yesterday. She relates she just recently started to see an mail room clerk. 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 Atherosclerosis of [place] coronary artery of [place] heart without angina pectoris (Chronic) Successful PTCA/DARA mid LAD with a 2.25 x 16 Promus Synergy, postdilated throughout with a 2.5 x 8 NC Balloon; 85%-->0%, no dissection and successful PTCA/DARA proximal LAD with a 2.5 x 12 Promus Synergy, post dilated with a 2.5 x 8 NC balloon; 75%-->0%, no dissection on 09/21/2018 @ [facility]. Hemoglobin A1c greater than 9.0% (Chronic) 12.2 Diabetic ulcer of right ankle (Chronic) diabetic ulcer abscess right lateral malleolus Abscess of right lower leg (Chronic) diabetic ulcer abscess right lateral malleolus HTN (hypertension) (Chronic) HLD (hyperlipidemia) (Chronic) Neuropathic pain (Chronic) GERD (gastroesophageal reflux disease) (Chronic) Hypomagnesemia (Chronic) Back pain, chronic (Chronic) Depression (Chronic) Diabetic foot ulcer associated with type 2 diabetes mellitus (Chronic) RLS (restless legs syndrome) (Chronic) Type II diabetes mellitus, uncontrolled (Chronic) Anxiety state (Chronic) Medical History: Medical History (Last Reviewed 04/07/19 @ 18:22 by Kali Prado DO) Atherosclerosis of [place] coronary artery of [place] heart without angina pectoris (Chronic) I25.10 Successful PTCA/DARA mid LAD with a 2.25 x 16 Promus Synergy, postdilated throughout with a 2.5 x 8 NC Balloon; 85%-->0%, no dissection and successful PTCA/DARA proximal LAD with a 2.5 x 12 Promus Synergy, post dilated with a 2.5 x 8 NC balloon; 75%-->0%, no dissection on 09/21/2018 @ [facility]. Necrotizing soft tissue infection (Acute) M79.89 Diabetic ulcer of right ankle (Chronic) E11.622, L97.319 diabetic ulcer abscess right lateral malleolus Abscess of right lower leg (Chronic) L02.415 diabetic ulcer abscess right lateral malleolus Chest pain (Resolved) R07.9 Osteomyelitis (Resolved) M86.9 Severe sepsis (Acute) A41.9, R65.20 Wound of foot (Acute) S91.309A HTN (hypertension) (Chronic) I10 NSTEMI (non-ST elevated myocardial infarction) (Resolved) I21.4 HLD (hyperlipidemia) (Chronic) E78.5 Neuropathic pain (Chronic) M79.2 GERD (gastroesophageal reflux disease) (Chronic) K21.9 Hypomagnesemia (Chronic) E83.42 Back pain, chronic (Chronic) M54.9, G89.29 Depression (Chronic) F32.9 Diabetic foot ulcer associated with type 2 diabetes mellitus (Chronic) E11.621, L97.509 RLS (restless legs syndrome) (Chronic) Type II diabetes mellitus, uncontrolled (Chronic) E11.65 Anxiety state (Chronic) F41.1 Allergies Penicillins Allergy (Verified 04/07/19 14:43) Shortness of breath metronidazole Adverse Reaction (Verified 04/07/19 14:43) Nausea OXYCONTIN Allergy (Uncoded 04/07/19 14:43) Shortness of breath Home Medications: Ambulatory Orders Medication Instructions Recorded Ascorbic Acid [Vitamin C] 500 mg PO DAILY 09/20/18 Gabapentin [Neurontin] 900 mg PO TIDCM 09/20/18 Ropinirole HCl [Requip] 3 mg PO BID 09/20/18 Atorvastatin Calcium [Lipitor] 80 mg PO QHS 09/23/18 Lisinopril [Zestril] 5 mg PO DAILY 09/23/18 Metoprolol Tartrate [Lopressor 12.5 mg PO BID 09/23/18 (beta kunal)] escitalopram 10 mg tablet 10 mg PO DAILY 09/28/18 Clopidogrel Bisulfate [Plavix] 75 mg PO DAILY 12/21/18 Metoclopramide [Reglan] 10 mg PO TID PRN #30 tablet 12/29/18 Acetaminophen [Tylenol Tablet] 650 mg PO Q6H PRN PRN 01/04/19 Insulin Lispro [Humalog KwikPen] See Protocol SC TIDCM 01/04/19 Insulin Lispro [Humalog KwikPen] unit SQ TIDCM 01/04/19 Oxycodone HCl 5 mg PO TID 01/04/19 Calcium Carbonate [Tums] 500 mg PO Q4H PRN PRN 04/02/19 Clindamycin HCl [Cleocin] 300 mg PO Q6H #40 cap 04/02/19 Insulin Glargine,Hum.rec.anlog 30 unit SQ DAILY 04/02/19 [Lantus Solostar] Surgical History: Surgical History (Last Reviewed 04/07/19 @ 18:22 by Kali Prado DO) Stented coronary artery (Chronic) Z95.5 Successful PTCA/DARA mid LAD with a 2.25 x 16 Promus Synergy, postdilated throughout with a 2.5 x 8 NC Balloon; 85%-->0%, no dissection and successful PTCA/DARA proximal LAD with a 2.5 x 12 Promus Synergy, post dilated with a 2.5 x 8 NC balloon; 75%-->0%, no dissection on 09/21/2018 @ [facility]. Surgical History: - - Severel R foot toe amputations and I+Ds, BL carpal tunnel surgery 1994, right shoulder surgery in 1994, section x2, most recently LLE I+D. 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 Maternal History Items: Cancer - Patient had a brother who had testicular cancer; and later cancer in his stomach., Diabetes, Hypertension, - - Her mother at the age of 67 to a blood clot to the brain. She had had multiple strokes preceding that. Patient had 3 brothers who had bypass surgery in their 50s. Sibling History Items: - - She has one brother who is secondary to cancer and she does not know what kind of cancer he had. She also has 3 brothers with a history of cardiovascular disease, stents and coronary artery bypass grafting. Review of Systems Constitutional: Denies: Chills, Fever Gastrointestinal: Denies: Nausea, Vomiting Musculoskeletal: Reports: Foot Pain Skin: Reports: Wounds Neurological: Reports: Numbness - to feet - Physical Exam General: Alert, Oriented x3, Cooperative, No apparent distress Extremities: No cyanosis, Capillary Refill Less than 3 Seconds, No Calf Tenderness, Peripheral Pulses Normal, - - Left foot with 3cm x 5cm ulceration to the plantar lateral midfoot down to subcutaneous tissue layer and tendon layer, close to bone, there is fibrogranular base, there is light surrounding erythema and also edema to the foot, there is some serous drainage present, no alvarado purulence, no maloder, no visible abscess present, no blistering, no crepitus, no fluctuance to the left foot or to the right foot/ankle. Right lateral ankle has 1.5cm x 3cm ulcration down to subcutaneous tissue layer with mostly granular tissue - healthy and viable with no evidence of infection. Sensation is diminished to bilateral foot/ankle c/w peripheral neuropathy. No evidence of acute ischemia to the foot/ankle bilateral. Motor function intact bilateral foot/ankle. 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 Psych/Mental Status: Alert and oriented to time, place, person, mood and affect Vital Signs Temp Pulse Resp BP Pulse Ox 99.1 F 87 18 137/70 H 97 04/07/19 17:57 04/07/19 17:57 04/07/19 17:57 04/07/19 17:57 04/07/19 17:57 Oxygen Delivery Method Room Air Weight: 84.368 kg Body Mass Index (BMI) 29.9 Finger Stick Blood Glucose 182 Laboratory Tests Past 24 Hrs 04/07/19 04/07/19 04/07/19 15:30 15:30 15:30 WBC 6.2 RBC 3.68 L Hgb 9.7 L Hct 30.6 L MCV 83.2 MCH 26.4 L MCHC 31.7 L RDW 14.2 RDW Differential 43.0 Plt Count 370 MPV 10.1 Immature Gran % (Auto) 0.200 Neut % (Auto) 81.1 H Lymph % (Auto) 9.3 L [place] % (Auto) 6.7 Eos % (Auto) 2.2 Baso % (Auto) 0.5 Absolute Neuts (auto) 5.1 Absolute Lymphs (auto) 0.58 L Total Counted Not Reportable Differential Comment SCANNED PT 14.7 INR 1.2 APTT 35.3 Sodium 130 L Potassium 4.8 Chloride 98 Carbon Dioxide 27.0 Anion Gap 5 BUN 23 H Creatinine 1.19 H Estim Creat Clear Calc 51.18 Est GFR (MDRD) Af Amer 61 Est GFR (MDRD) Non-Af 50 L BUN/Creatinine Ratio 19.3 Glucose 386 H Lactic Acid Calcium 9.2 Total Bilirubin 0.30 AST 25 ALT 23 Alkaline Phosphatase 174 H Total Protein 7.9 Albumin 2.7 L Globulin 5.2 H Albumin/Globulin Ratio 0.5 L 04/07/19 15:30 WBC RBC Hgb Hct MCV MCH MCHC RDW RDW Differential Plt Count MPV Immature Gran % (Auto) Neut % (Auto) Lymph % (Auto) [place] % (Auto) Eos % (Auto) Baso % (Auto) Absolute Neuts (auto) Absolute Lymphs (auto) Total Counted Differential Comment PT INR APTT Sodium Potassium Chloride Carbon Dioxide Anion Gap BUN Creatinine Estim Creat Clear Calc Est GFR (MDRD) Af Amer Est GFR (MDRD) Non-Af BUN/Creatinine Ratio Glucose Lactic Acid 1.1 Calcium Total Bilirubin AST ALT Alkaline Phosphatase Total Protein Albumin Globulin Albumin/Globulin Ratio Assessment/Plan All Active Problems (Last Reviewed 04/07/19 @ 18:22 by Kali Prado DO) Cellulitis of foot, left (Acute) Necrotizing soft tissue infection (Acute) Intractable nausea and vomiting (Acute) Chest pain (Resolved) Osteomyelitis (Resolved) Severe sepsis (Acute) Wound of foot (Acute) NSTEMI (non-ST elevated myocardial infarction) (Resolved) Deep ulceration lateral left foot concerning for osteomyelitis Cellulitis left foot Left foot deformity, 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 An MRI has been ordered for further evaluation of the left foot Previous cultures from 04/04/19 show staph arueus and strep, but due to status change to left foot, new cultures obtained and sent to microbiology for further evaluation. Continue with IV antibiotic therapy at this time. Infectious Disease has been consulted. Noninvasive lower extremity arterial studies have been ordered. Ulcerations left foot and right ankle cleansed, and applied Aquacel and overlying gauze, kerlix and brando dressing. Change daily. We will check MRI as ordered and further debridement/possible surgical intervention will be concerned pending findings/results. Patient needs to be nonweightbearing left foot. Keep ulcerations offloaded at all times. Patient is at high risk for ultimate limb loss due to foot condition and overall patient's health status, along with her nonadherence. Reviewed importance of proper nutrition and blood sugar control to optimize foot health. Diabetes, and medical management per medicine team. Podiatry will continue to follow. Thank you for consultation.
[2019-04-07 19:50] LABS: Erythrocyte Sedimentation Rate 117 mm/hr (0-30)
--- NOTE | 2019-04-07 19:54 | PCM.RX.CS ---
Consult Pharmacy has been consulted to manage selected antiobiotic: Vancomycin Type of Consult: New start Suspected Infection: Skin/Soft tissue Prior Doses of Antibiotics Received/Current Regimen: Medications Vancomycin HCl 750 mg/ Sodium (Chloride) 265 mls @ 250 mls/hr IV Q12H TAB Discontinued Medications Vancomycin HCl 1,250 mg/ (Sodium Chloride) 275 mls @ 167 mls/hr IV X1 ONE Stop: 04/07/19 17:08 Last Admin: 04/07/19 15:59 Dose: 167 mls/hr Labs: Sodium 130 mmol/L (136-145) L 04/07/19 15:30 Potassium 4.8 mmol/L (3.5-5.1) 04/07/19 15:30 Chloride 98 mmol/L (98-107) 04/07/19 15:30 Carbon Dioxide 27.0 mmol/L (21.0-32.0) 04/07/19 15:30 5 (5-15) 04/07/19 15:30 BUN 23 mg/dL (7-18) H 04/07/19 15:30 1.19 mg/dL (0.55-1.02) H 04/07/19 15:30 Est GFR (MDRD) Af Amer 61 mL/min (>60) 04/07/19 15:30 Est GFR (MDRD) Non-Af 50 mL/min (>60) L 04/07/19 15:30 19.3 RATIO (10-20) 04/07/19 15:30 Glucose 386 mg/dL (74-106) H 04/07/19 15:30 Weight used for dosin.4 kg Estimated Creatinine Clearance: 51 Goal Trough: 15-20 mcg/mL Pharmacy Plan for Drug Dosing: Pharmacy Service will continue to monitor and adjust dosing as required. Follow-Up Labs: Trough Vancomycin Labs to be done on [date and time ordered]: 04/09/19 @0807
[2019-04-07 20:47] LABS: M R Staph aureus DNA By PCR Negative (Negative); Probe Check PASS; Staph aureus DNA By PCR POSITIVE (Negative)
--- NOTE | 2019-04-07 21:50 | RAD_ITS ---
STUDY: X-RAY - RIGHT ANKLE REASON FOR EXAM: Female, 53 years old. Ankle pain, ulceration TECHNIQUE: 3 view(s) of the ankle. COMPARISON: 03/01/2019 FINDINGS: There is soft tissue edema predominantly over the lateral aspect of the ankle with soft tissue ulceration.. There is new mild regular periosteal thickening and cortical thickening lateral distal fibula. There is stable bony exostosis mild cortical thickening medial malleolus. Normal visualized talus and calcaneus. There is sclerosis of osteophytes and mild subchondral cystic changes posterior hindfoot. Partial amputation fifth metatarsal is not well seen on this study There are no acute fractures. RAD/Ankle min 3 Views IMPRESSION: Cellulitis, with soft tissue ulceration most significant over the lateral ankle new periosteal reaction distal fibula suspicious for osteomyelitis, this can be further evaluated with MRI of the ankle stable osteoarthrosis Electronically Signed: Kike Burch, at 22:30 EDT Tel , Service support ,
[2019-04-07] MEDS: Metoprolol Tartrate 25 MG Tablet 12.5 MG PO (22:19)
[2019-04-07] MEDS: Atorvastatin Calcium 80 MG Tablet PO (22:20)
[2019-04-07] MEDS: MELATONIN 3 MG TABLET PO (22:20)
[2019-04-07] MEDS: Pramipexole Di-HCl 1 MG Tablet 1.5 MG PO (22:20)
[2019-04-07 22:36] LABS: Bedside Glucose 411 mg/dL (70-110)
[2019-04-07] MEDS: Insulin Lispro 100 UNIT/ML INSULN.PEN SC (22:46)
[2019-04-08] MEDS: oxyCODONE 5 MG Tablet PO (00:20)
[2019-04-08 03:17] VITALS: BP 109/76; PULSE 72; RESP 16; TEMP 36.6; O2SAT 97
[2019-04-08] MEDS: DiphenhydrAMINE 25 MG Capsule PO (03:21)
[2019-04-08 05:11] LABS: Absolute Lymphocyte Count 1.35 X10^3/ul (0.83-4.51); Absolute Neutrophil Count 2.6 X10^3/uL (2.0-7.7); Basophil# 0.02 X10^3/uL; Basophil% 0.4 % (0-1); Eosinophil# 0.19 X10^3/uL; Eosinophils% 4.1 % (0-5); Hematocrit 28.3 % (37-47); Hemoglobin 8.8 g/dl (12.0-15.0); Lymphocyte # 1.35 X10^3/ul (4.0); Lymphocyte % 29.4 % (19-41); Mean Corp Hgb Conc 31.1 g/gl (32-36); Mean Corpuscular Volume 83.5 fL (81-99); Mean Platelet Vol. 9.8 fl (6.2-12.0); Monocyte# 0.44 X10^3/uL; Monocyte% 9.6 % (0-10); Neutrophil # 2.58 X10^3/uL (2.7-7.7); Neutrophil % 56.3 % (47-70); POSITIVE COUNT NO; POSITIVE DIFFERENTIAL NO; POSITIVE MORPHOLOGY NO; Platelet Count 350 K/mm3 (150-450); RBC Distribution Width CV 14.1 % (11.6-14.6); RBC Distribution Width SD 42.9 fl (35.1-43.9); Red Blood Count 3.39 M/mm3 (4.2-5.4); White Blood Count 4.6 K/mm3 (4.4-11.0)
[2019-04-08 05:31] LABS: Anion Gap 8 (5-15); BUN 24 mg/dL (7-18); BUN/Creat Ratio 23.5 RATIO (10-20); Calcium,Total 8.7 mg/dL (8.5-10.1); Chloride 100 mmol/L (98-107); Creatinine, Serum 1.02 mg/dL (0.55-1.02); EST Glomerular Filtration Rate 60 mL/min (>60); Est Glom Filt Rate - Afr Amer 73 mL/min (>60); Estimated Creatinine Clearance 59.71 ml/min; Glucose 391 mg/dL (74-106); Potassium 4.6 mmol/L (3.5-5.1); Sodium Level 134 mmol/L (136-145)
[2019-04-08] MEDS: Insulin Lispro 100 UNIT/ML INSULN.PEN SC ×2 (06:52→12:36)
[2019-04-08 07:06] LABS: Bedside Glucose 323 mg/dL (70-110)
--- NOTE | 2019-04-08 08:19 | MRI_ITS ---
HISTORY:chronic ulcer/concern for osteo rt lateral ankle. Please compare to MR 0f 12/21/18 MRI EXAMINATION OF THE Right ANKLE COMPARISON: December 21, 2018 TECHNIQUE: Axial T1 and T2 oblique axial gradient echo, oblique axial STIR, coronal fat-suppressed T2 and sagittal STIR and T1 # of images including paperwork:[id number] FINDINGS: BONES; there is diffuse low signal that is seen within the middle cuneiform and to a lesser extent the navicular the lateral cuneiform and portions of the medial cuneiform. These areas demonstrate increased signal on STIR weighted imaging. This was present on the prior study. Minimal abnormal STIR signal is also seen within the base of the second metatarsal the third metatarsal the fourth and fifth metatarsals in the cuboid and to a lesser extent the calcaneus. These findings are compatible with neuropathic changes in the midfoot. There is amputation of the fifth metatarsal at the proximal diaphysis similar to prior study Again noted is subcutaneous edema that is seen overlying the lateral aspect of the ankle. No evidence of an abscess is seen on today's study. No evidence of osteomyelitis. TIBIOTALAR JOINT: There is a small tibiotalar joint effusion and probable mild synovitis. This was present on the prior study. Osteochondral surfaces of the tibiotalar joint are unremarkable. No loose bodies. SUBTALAR JOINT: There is no subtalar joint effusion. Osteochondral sufaces are intact. No loose bodies. OTHER TARSAL JOINTS: There is a septated fluid collection is seen lateral to the talus at the head and dorsal to the distal calcaneus. There is area measures approximately 1.7 cm AP by 1.2 cm transverse and is compatible with a ganglion cysts. There is associated synovitis.. LIGAMENTS: The anterior tibiofibular ligament is intact. The posterior tlbiofilular ligament is intact The anterior talofibular ligament is intact. The posterior talofibular ligament is intact. The calcaneofibular ligament is intact. The deltoid ligaments are intact. The ligaments of the tarasal sinus are intact. TENDONS: There is minimal fluid surrounding the posterior tibial tendon and flexor digitorum tendon at the level of the medial malleolus and just distal to it can be seen with tenosynovitis. No evidence of a tear. The flexor hallucis tendon is intact The Achilles tendon is intact The extensor tendons are intact Incomplete split thickness tear of the peroneus brevis tendon at the level of the lateral malleolus. This becomes normal at the level of the distal calcaneus. Fluid surrounds the peroneus longus tendon at the level of the Peroneal Tubercle on the calcaneus PLANTAR APONEUROSIS: The plantar aponeurosis is unremarkable. Atrophy of the intrinsic muscles of the rear foot similar to prior study. NEUROVASCULAR STRUCTURES: The posterior tibial neurovascular bundle appears normal, without intinsic or extrinsic masses or foci or signal alteration. IMPRESSION: No evidence of osteomyelitis There are abscess that is seen at the lateral aspect of the ankle on the prior study is not seen on today's study. There is persistent soft tissue thickening There is a tibiotalar effusion with suspected synovitis. Ganglion cyst seen adjacent to the talus and the calcaneus with suspected synovitis Neuropathic changes are again noted within the midfoot Atrophy of the hindfoot intrinsic muscle similar to prior study Question mild tenosynovitis involving the posterior tibial and flexor digitorum tendon Split thickness tear involving the peroneus brevis tendon as discussed at 1414 Reported and signed by: Milli Wyatt DO Electronically Signed: Milli Wyatt DO at 14:13 EDT Tel , Service support , MRI/Lower Ext Joint Only (Routine)
--- NOTE | 2019-04-08 08:26 | ART_ITS ---
Reason For Study: Chronic Ulcers Procedure A bilateral lower extremity continuous wave Doppler with analog waveform analysis,segmental pressures,and ankle brachial indexes without exercise. Left Segmental Pressures Left posterior tibial artery = 183mmHg. Left dorsalis pedis artery = 177mmHg. Left digit = 145 mmHg. Right Segmental Pressures Right brachial= 142mmHg. Right posterior tibial artery = 185mmHg. Right dorsalis pedis artery = 180mmHg. Right digit = 157 mmHg. Indices The right ankle brachial index by the posterior tibial artery is 1.30. The right ankle brachial index by the dorsalis pedis is 1.27. The right digital-brachial index is 1.11. The left ankle brachial index by the posterior tibial artery is 1.29. The left ankle brachial index by the dorsalis pedis is 1.25. The left digital-brachial index is 1.02. Interpretation Summary Triphasic Doppler waveforms are noted at ankle level bilaterally. Pulse-volume recording waveform amplitudes appear satisfactory at all levels bilaterally, including low-thigh, calf, ankle, and digital levels. Resting ankle-brachial indices are normal bilaterally. Digital-brachial indices are bilaterally normal. There is no evidence of significant arterial occlusive disease in the lower extremities bilaterally. Ordering Physician: Jefe Guadarrama Referring Physician: Raúl Eric Performed By: Mary Mitchell RDCS/RVT
[2019-04-08 09:09] VITALS: BP 137/72; PULSE 82; RESP 18; TEMP 36.8; O2SAT 95
[2019-04-08 09:12] VITALS: PULSE 82
[2019-04-08] MEDS: Metoprolol Tartrate 25 MG Tablet 12.5 MG PO ×2 (09:12→21:25)
[2019-04-08] MEDS: Clopidogrel Bisulfate 75 MG Tablet PO (09:12)
[2019-04-08] MEDS: Pramipexole Di-HCl 1 MG Tablet 1.5 MG PO ×2 (09:12→21:26)
[2019-04-08] MEDS: Lisinopril 5 MG Tablet PO (09:12)
[2019-04-08] MEDS: Gabapentin 300 MG Capsule 900 MG PO ×3 (09:13→16:38)
[2019-04-08] MEDS: Escitalopram Oxalate 10 MG Tablet PO (09:13)
[2019-04-08] MEDS: Enoxaparin 40 MG/0.4 ML Syringe SC (09:13)
--- NOTE | 2019-04-08 09:14 | PN_ITS ---
Subjective: Patient was seen this morning for follow up left foot and right ankle ulcerations. Patient resting in bed, ate breakfast this morning. Patient afebr ile, no complaints of fever, chills, nausea or vomiting. Right ankle xrays from yesterday concerning for new periosteal reaction to the lateral malleolus. - Physical Exam General: Alert, Oriented x3, Cooperative, No apparent distress Extremities: Capillary Refill Less than 3 Seconds, No Calf Tenderness, Peripheral Pulses Normal, - - Left foot with chronic ulceration to the plantar lateral midfoot down to subcutaneous tissue layer and tendon layer, close to bone, there is fibrogranular base, there is less surrounding erythema and and less edema to the foot, there is some serous drainage present, no alvarado purulence, no maloder, no visible abscess present, no blistering, no crepitus, no fluctuance to the left foot or to the right foot/ankle. Right lateral ankle has chronic ulcration down to subcutaneous tissue layer with mostly granular tissue - healthy and viable with no evidence of infection. No evidence of acute ischemia to the foot/ankle bilateral. Motor function intact bilateral foot/ankle. 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 Psych/Mental Status: Alert and oriented to time, place, person, mood and affect Vital Signs Temp Pulse Resp BP Pulse Ox 98.2 F 82 18 137/72 H 95 04/08/19 09:09 04/08/19 09:09 04/08/19 09:09 04/08/19 09:09 04/08/19 09:09 Oxygen Delivery Method Room Air Weight: 84.368 kg Body Mass Index (BMI) 29.9 Finger Stick Blood Glucose 182 Intake and Output for Last 24 Hours 04/06/19 04/07/19 04/08/19 23:59 23:59 23:59 Intake Total 654 / 654 Output Total 500 / 500 Balance 154 / 154 Laboratory Tests Past 24 Hrs 04/07/19 04/07/19 04/07/19 15:30 15:30 15:30 WBC 6.2 RBC 3.68 L Hgb 9.7 L Hct 30.6 L MCV 83.2 MCH 26.4 L MCHC 31.7 L RDW 14.2 RDW Differential 43.0 Plt Count 370 MPV 10.1 Immature Gran % (Auto) 0.200 Neut % (Auto) 81.1 H Lymph % (Auto) 9.3 L [place] % (Auto) 6.7 Eos % (Auto) 2.2 Baso % (Auto) 0.5 Absolute Neuts (auto) 5.1 Absolute Lymphs (auto) 0.58 L Total Counted Not Reportable Differential Comment SCANNED ESR PT 14.7 INR 1.2 APTT 35.3 Sodium 130 L Potassium 4.8 Chloride 98 Carbon Dioxide 27.0 Anion Gap 5 BUN 23 H Creatinine 1.19 H Estim Creat Clear Calc 51.18 Est GFR (MDRD) Af Amer 61 Est GFR (MDRD) Non-Af 50 L BUN/Creatinine Ratio 19.3 Glucose 386 H Lactic Acid Calcium 9.2 Total Bilirubin 0.30 AST 25 ALT 23 Alkaline Phosphatase 174 H C-React Prot Ext Range Total Protein 7.9 Albumin 2.7 L Globulin 5.2 H Albumin/Globulin Ratio 0.5 L S.aureus Protein A PCR MRSA (PCR) 04/07/19 04/07/19 04/07/19 15:30 15:30 15:30 WBC RBC Hgb Hct MCV MCH MCHC RDW RDW Differential Plt Count MPV Immature Gran % (Auto) Neut % (Auto) Lymph % (Auto) [place] % (Auto) Eos % (Auto) Baso % (Auto) Absolute Neuts (auto) Absolute Lymphs (auto) Total Counted Differential Comment ESR 117 H PT INR APTT Sodium Potassium Chloride Carbon Dioxide Anion Gap BUN Creatinine Estim Creat Clear Calc Est GFR (MDRD) Af Amer Est GFR (MDRD) Non-Af BUN/Creatinine Ratio Glucose Lactic Acid 1.1 Calcium Total Bilirubin AST ALT Alkaline Phosphatase C-React Prot Ext Range 155.00 H Total Protein Albumin Globulin Albumin/Globulin Ratio S.aureus Protein A PCR MRSA (PCR) 04/07/19 04/08/19 04/08/19 18:30 04:40 04:40 WBC 4.6 RBC 3.39 L Hgb 8.8 L Hct 28.3 L MCV 83.5 MCH 26.0 L MCHC 31.1 L RDW 14.1 RDW Differential 42.9 Plt Count 350 MPV 9.8 Immature Gran % (Auto) 0.200 Neut % (Auto) 56.3 Lymph % (Auto) 29.4 [place] % (Auto) 9.6 Eos % (Auto) 4.1 Baso % (Auto) 0.4 Absolute Neuts (auto) 2.6 Absolute Lymphs (auto) 1.35 Total Counted Not Reportable Differential Comment ESR PT INR APTT Sodium 134 L Potassium 4.6 Chloride 100 Carbon Dioxide 26.0 Anion Gap 8 BUN 24 H Creatinine 1.02 Estim Creat Clear Calc 59.71 Est GFR (MDRD) Af Amer 73 Est GFR (MDRD) Non-Af 60 BUN/Creatinine Ratio 23.5 H Glucose 391 H Lactic Acid Calcium 8.7 Total Bilirubin AST ALT Alkaline Phosphatase C-React Prot Ext Range Total Protein Albumin Globulin Albumin/Globulin Ratio S.aureus Protein A PCR POSITIVE H MRSA (PCR) Negative POC Glucose 04/08/19 04/07/19 06:50 22:27 POC Glucose 323 H 411 H Medical Necessity - Tobacco Use Smoking Status: Never smoker Assessment/Plan All Active Problems (Last Reviewed 04/07/19 @ 18:22 by Kali Prado DO) Cellulitis of foot, left (Acute) Necrotizing soft tissue infection (Acute) Intractable nausea and vomiting (Acute) Chest pain (Resolved) Osteomyelitis (Resolved) Severe sepsis (Acute) Wound of foot (Acute) NSTEMI (non-ST elevated myocardial infarction) (Resolved) Deep ulceration lateral left foot concerning for osteomyelitis Cellulitis left foot Left foot deformity, 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 ESR and CRP elevated consistent with osteomyelitis infection. MRI pending left foot. Reviewed right ankle xrays - new periosteal reaction noted lateral malleolus - due to chronicity of wound and xray changes MRI of right ankle ordered for further evaluation. Previous cultures from 04/04/19 show staph arueus and strep, but due to status change to left foot, new cultures have been obtained and sent to microbiology for further evaluation - results pending. Continue with IV antibiotic therapy at this time, patient on Vancomycin in which both the staph and strep were sensitive to. Infectious Disease has been consulted. Noninvasive lower extremity arterial studies have been ordered, and are pending. Ulcerations left foot and right ankle cleansed, and applied Aquacel and overlying gauze, kerlix and brando dressing. Change daily. We will check MRIs as ordered and further debridement/possible surgical intervention will be considered pending findings/results. Patient needs to be nonweightbearing left foot. Keep ulcerations offloaded at all times. Patient is at high risk for ultimate limb loss due to foot condition and overall patient's health status, along with her nonadherence. Reviewed importance of proper nutrition and blood sugar control to optimize foot health. Diabetes, and medical management per medicine team. Podiatry will continue to follow.
--- NOTE | 2019-04-08 10:00 | MRI_ITS ---
HISTORY:lt foot wound. Please compare to left foot MR 10/2018 MRI EXAMINATION OF THE Left FOOT COMPARISON: November 08, 2018 of the mid and hindfoot # of images including paperwork:157 TECHNIQUE: Sagittal T1 and STIR, axial T2, T1, and coronal T2-weighted images FINDINGS: The study is limited by motion Bones: There is abnormal signal on STIR weighted imaging that is seen within the lateral aspect of the navicular, the middle and lateral cuneiform and the base of the medial cuneiform. Also at the base of the second and third metatarsals. These areas demonstrate decreased signal on T1-weighted images. These findings are suspect for early neuropathic changes/stress reaction. There is been amputation of the majority of the fifth ray with only the remnant of the fifth metatarsal remaining Again noted is minimal increased signal on STIR-weighted imaging sagittal 17 series 4 that may represent reactive edema however it is normal-appearing on T1-weighted images. Signal intensity in the medial and lateral sesamoid bones is unremarkable Joints: Small joint effusions are seen at the tarsometatarsal joints with chondral thinning. Chondral thinning was seen on the prior study There is a small ganglion cyst seen extending from the anterior facet of the subtalar joint seen on image 19 series 4 coronal Ligaments: There is limited evaluation of the Lisfranc ligament complex on the study. There is no widening of the joint space. No grossly ominous abnormalities are noted Soft tissues: Suspected soft tissue ulcer seen at the plantar surface of the foot with heterogenous appearance on fluid weighted images in decreased signal on T1-weighted images. This is in the area of the prior cellulitis. On today's study there are small foci of decreased signal on all pulse sequences within the subcutaneous tissue as well as minimal within the intrinsic muscle of the foot. This is suspect for soft tissue gas. Without contrast is difficult to assess for an abscess. I do suspect there is a tiny abscess seen on image 11 series 6 axial approximately 6 mm transverse by 4 mm AP. Increased signal on T2-weighted images within the intrinsic plantar musculature also suggest myositis. This was present on the prior study. There may be a small fistula to the skin seen at the posterior lateral foot deep to the fifth metatarsal remnant Tendons: The visualized foot tendons are intact without splitting, increased or decreased caliber, or discontinuity identified. Neurovascular structures: No intrinsic or extrinsic mass along the course of the nerves or vessels is identified. MRI/Lower Ext/No Jt/w/o IMPRESSION: Study is limited without intravenous contrast in mildly limited by motion. There are reactive changes seen within the midfoot with arthritic changes also noted at the metatarsophalangeal joint Do not see evidence of osteomyelitis however there is probable cellulitis. There is a small abscess that is noted within the plantar subcutaneous tissue and probably a fistulous tract to the skin surface adjacent to the fifth metatarsal remnant. In addition there are foci of decreased signal within the subcutaneous tissue in the deep musculature of the foot that suggests gas. Correlate clinically at 1505 Reported and signed by: Milli Wyatt DO Electronically Signed: Milli Wyatt DO at 15:03 EDT Tel , Service support ,
[2019-04-08] MEDS: Ondansetron 4 MG/2 ML Vial IV (10:30)
--- NOTE | 2019-04-08 11:07 | PN_ITS ---
Subjective: Follow-upon diabetic foot ulcer Patient was seen and examined. She feels well. Denies any fever or chills. Had an MRI of foot today. No diarrhea, nausea or vomiting. Vitals/I&O's: Vital Signs Temp Pulse Resp BP Pulse Ox 98.2 F 82 18 137/72 H 95 04/08/19 09:09 04/08/19 09:12 04/08/19 09:09 04/08/19 09:09 04/08/19 09:09 Oxygen Delivery Method Room Air Weight: 84.368 kg Body Mass Index (BMI) 29.9 Finger Stick Blood Glucose 182 Intake and Output for Last 24 Hours 04/06/19 04/07/19 04/08/19 23:59 23:59 23:59 Intake Total 654 / 654 Output Total 500 / 500 Balance 154 / 154 General: Alert, Oriented x3, Cooperative, No apparent distress HEENT: Atraumatic, PERRLA, EOMI, Normocephalic Oral: Moist Mucosa Neck: Supple Lungs: Clear to auscultation, Normal air movement Cardiovascular: Regular rate, Regular Rhythm, Normal S1, Normal S2, No murmurs Abdomen: Bowel Sounds Present, Soft, Non Tender, Non-Distended, No Hepato- splenomegaly Extremities: No edema, - - MYLA-wrap dressings over both feet Skin: No rashes Musculoskeletal: No Tenderness to Palpation of Joints or Extremities Lymphatic: No Cervical, Supraclavicular, or Inguinal Adenopathy Neurological: Cranial nerves II-XII grossly intact, Neuro grossly intact Psych/Mental Status: Normal Affect, Appropriate Microbiology Past 72 Hours 04/07/19 18:30 Wound - Left Foot Gram Stain - Final Laboratory Results 04/07/19 15:30: WBC 6.2, RBC 3.68 L, Hgb 9.7 L, Hct 30.6 L, MCV 83.2, MCH 26.4 L , MCHC 31.7 L, RDW 14.2, RDW Differential 43.0, Plt Count 370, MPV 10.1, Immature Gran % (Auto) 0.200, Neut % (Auto) 81.1 H, Lymph % (Auto) 9.3 L, [place] % (Auto) 6.7, Eos % (Auto) 2.2, Baso % (Auto) 0.5, Absolute Neuts (auto) 5.1, Absolute Lymphs (auto) 0.58 L, Total Counted Not Reportable, Differential Comment SCANNED 04/07/19 15:30: PT 14.7, INR 1.2, APTT 35.3 04/07/19 15:30: Sodium 130 L, Potassium 4.8, Chloride 98, Carbon Dioxide 27.0, Anion Gap 5, BUN 23 H, Creatinine 1.19 H, Estim Creat Clear Calc 51.18, Est GFR (MDRD) Af Amer 61, Est GFR (MDRD) Non-Af 50 L, BUN/Creatinine Ratio 19.3, Glucose 386 H, Calcium 9.2, Total Bilirubin 0.30, AST 25, ALT 23, Alkaline Phosphatase 174 H, Total Protein 7.9, Albumin 2.7 L, Globulin 5.2 H, Albumin/Globulin Ratio 0.5 L 04/07/19 15:30: Lactic Acid 1.1 04/07/19 15:30: ESR 117 H 04/07/19 15:30: C-React Prot Ext Range 155.00 H 04/07/19 18:30: S.aureus Protein A PCR POSITIVE H, MRSA (PCR) Negative 04/07/19 22:27: POC Glucose 411 H 04/08/19 04:40: WBC 4.6, RBC 3.39 L, Hgb 8.8 L, Hct 28.3 L, MCV 83.5, MCH 26.0 L , MCHC 31.1 L, RDW 14.1, RDW Differential 42.9, Plt Count 350, MPV 9.8, Immature Gran % (Auto) 0.200, Neut % (Auto) 56.3, Lymph % (Auto) 29.4, [place] % (Auto) 9.6, Eos % (Auto) 4.1, Baso % (Auto) 0.4, Absolute Neuts (auto) 2.6, Absolute Lymphs (auto) 1.35, Total Counted Not Reportable 04/08/19 04:40: Sodium 134 L, Potassium 4.6, Chloride 100, Carbon Dioxide 26.0, Anion Gap 8, BUN 24 H, Creatinine 1.02, Estim Creat Clear Calc 59.71, Est GFR (MDRD) Af Amer 73, Est GFR (MDRD) Non-Af 60, BUN/Creatinine Ratio 23.5 H, Glucose 391 H, Calcium 8.7 06/30/19 06:50: POC Glucose 323 H Current Medications Acetaminophen (Tylenol) 650 mg PO Q6H PRN PRN PRN Reason: Mild Pain (1-3)/Temp > 100.7 F Ascorbic Acid (Vitamin C) 500 mg PO DAILY [facility] Last Admin: 04/08/19 10:29 Dose: Not Given Documented by: Atorvastatin Calcium (Lipitor) 80 mg PO QHS [facility] Last Admin: 04/07/19 22:20 Dose: 80 mg Documented by: Bisacodyl (Dulcolax) 5 mg PO DAILY PRN PRN PRN Reason: Constipation Calcium Carbonate (Tums) 500 mg PO Q4H PRN PRN PRN Reason: reflux Clopidogrel Bisulfate (Plavix) 75 mg PO DAILY [facility] Last Admin: 04/08/19 09:12 Dose: 75 mg Documented by: Dextrose (D50w Syringe) 0 gm IV X1 PRN; Protocol PRN Reason: Hypoglycemia Diphenhydramine HCl (Benadryl) 25 mg PO Q6H PRN PRN PRN Reason: ITCHING Last Admin: 04/08/19 03:21 Dose: 25 mg Documented by: Enoxaparin Sodium (Lovenox) 40 mg SC DAILY@1000 [facility] Last Admin: 04/08/19 09:13 Dose: 40 mg Documented by: Escitalopram Oxalate (Lexapro) 10 mg PO DAILY [facility] Last Admin: 04/08/19 09:13 Dose: 10 mg Documented by: Gabapentin (Neurontin) 900 mg PO TIDCM [facility] Last Admin: 04/08/19 09:13 Dose: 900 mg Documented by: Glucagon () 1 mg IM .X1 PRN PRN Reason: Hypoglycemia Vancomycin IV Pharmacy to Dose (1 ea/ Sodium Chloride) 500 mls @ 250 mls/hr IV PRN PRN; Protocol PRN Reason: Rx to Dose Vancomycin HCl 750 mg/ Sodium (Chloride) 265 mls @ 250 mls/hr IV Q12H [facility] Last Admin: 04/08/19 03:27 Dose: 250 mls/hr Documented by: Sodium Chloride () 250 mls @ 15 mls/hr IV .[id number] PRN PRN Reason: SALINE FLUSH Insulin Glargine (Lantus (Bkc)) 30 units SC DAILY [facility] Last Admin: 04/08/19 09:13 Dose: 30 units Documented by: Insulin Human Lispro (Humalog Kwikpen (Bkc)) 0 unit SC TIDAC [facility]; Protocol Last Admin: 04/08/19 06:52 Dose: 5 u Documented by: Lisinopril (Zestril) 5 mg PO DAILY [facility] Last Admin: 04/08/19 09:12 Dose: 5 mg Documented by: Melatonin (Melatonin) 3 mg PO QHS PRN PRN PRN Reason: INSOMNIA Last Admin: 04/07/19 22:20 Dose: 3 mg Documented by: Metoclopramide HCl (Reglan) 10 mg PO TID PRN PRN Reason: NAUSEA/VOMITING Metoprolol Tartrate (Lopressor (Beta Tin)) 12.5 mg PO BID [facility] Last Admin: 04/08/19 09:12 Dose: 12.5 mg Documented by: Ondansetron HCl (Zofran) 4 mg IV Q8H PRN PRN PRN Reason: NAUSEA/VOMITING Last Admin: 04/08/19 10:30 Dose: 4 mg Documented by: Oxycodone HCl (Oxyir) 5 mg PO TID PRN PRN Reason: PAIN Oxycodone HCl (Oxyir) 5 mg PO Q4H PRN PRN PRN Reason: Moderate Pain (4-6/10) Last Admin: 04/08/19 00:20 Dose: 5 mg Documented by: Pramipexole Dihydrochloride (Mirapex) 1.5 mg PO BID [facility] Last Admin: 04/08/19 09:12 Dose: 1.5 mg Documented by: Sodium Chloride () 10 - 40 ml IV UD PRN PRN Reason: SALINE FLUSH Throat Lozenges (Cepacol Sore Throat Lozenge) 1 lozenge MUCOUS MEM Q2H PRN PRN PRN Reason: Sore throat or cough Medical Necessity - Tobacco Use Smoking Status: Never smoker Assessment/Plan All Active Problems (Last Reviewed 04/07/19 @ 18:22 by Kali Prado DO) Cellulitis of foot, left (Acute) Necrotizing soft tissue infection (Acute) Intractable nausea and vomiting (Acute) Chest pain (Resolved) Osteomyelitis (Resolved) Severe sepsis (Acute) Wound of foot (Acute) NSTEMI (non-ST elevated myocardial infarction) (Resolved) 53-year-old female with past medical history of diabetic foot ulcer, follows with podiatry comes in with complaints of worsening bilateral feet ulcers. 1. 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 ESR 117, CRP 1.55, MRSA PCR negative, MRI of the left foot shows possible abscess involving the plantar subcutaneous tissue. MRI of right ankle shows no evidence of osteomyelitis, abscess over the lateral aspect of the ankle. on IV vancomycin, ID consulted, podiatry following 2. Type 2 DM, blood sugars are fairly uncontrolled, home Lantus was increased to 34 units daily, continue on insulin sliding scale with Accu-Cheks 3. Hypertension, controlled, continue home medications 4. DVT PPx- Lovenox SC Code Visit Inpatient E&M: 74751 Subs Hosp L2
[2019-04-08] MEDS: 0.9% NaCl Peripheral Flush Adult/Peds IV ×2 (12:36→16:38)
[2019-04-08] MEDS: Metoclopramide 10 MG Tablet PO (12:37)
[2019-04-08 15:01] LABS: Bedside Glucose 339 mg/dL (70-110)
[2019-04-08 16:38] VITALS: BP 132/75; PULSE 81; RESP 18; TEMP 36.8; O2SAT 95
[2019-04-08 16:51] LABS: Bedside Glucose 489 mg/dL (70-110)
[2019-04-08 17:59] LABS: Glucose 529 mg/dL (74-106)
[2019-04-08] MEDS: Insulin Lispro 100 UNIT/ML INSULN.PEN 10 UNIT SC (19:41)
[2019-04-08] MEDS: 0.9% Normal Saline 1,000 ML 100 ML IV (19:43)
[2019-04-08 20:46] VITALS: BP 156/71; PULSE 84; RESP 18; TEMP 37.2; O2SAT 95
[2019-04-08 21:25] VITALS: PULSE 82
[2019-04-08] MEDS: Atorvastatin Calcium 80 MG Tablet PO (21:33)
[2019-04-09] VITALS (12 sets, daily range): BP systolic 130–168; BP diastolic 61–91; PULSE 74–80; RESP 14–16; TEMP 36.6–36.8; O2SAT 92–98; BMI 29.9
[2019-04-09 00:45] LABS: Bedside Glucose 315 mg/dL (70-110)
--- NOTE | 2019-04-09 04:40 | PCM.RX.CS ---
Consult Pharmacy has been consulted to manage selected antiobiotic: Vancomycin Type of Consult: Follow-up Suspected Infection: Skin/Soft tissue Prior Doses of Antibiotics Received/Current Regimen: Medications Vancomycin HCl (Vancomycin) 1,000 mg in 200 mls @ 200 mls/hr IV Q12H TAB Discontinued Medications Vancomycin HCl 750 mg/ Sodium (Chloride) 265 mls @ 250 mls/hr IV Q12H TAB Last Admin: 04/09/19 03:43 Dose: 250 mls/hr Labs: Sodium 134 mmol/L (136-145) L 04/08/19 04:40 Potassium 4.6 mmol/L (3.5-5.1) 04/08/19 04:40 Chloride 100 mmol/L (98-107) 04/08/19 04:40 Carbon Dioxide 26.0 mmol/L (21.0-32.0) 04/08/19 04:40 8 (5-15) 04/08/19 04:40 BUN 24 mg/dL (7-18) H 04/08/19 04:40 1.02 mg/dL (0.55-1.02) 04/08/19 04:40 Est GFR (MDRD) Af Amer 73 mL/min (>60) 04/08/19 04:40 Est GFR (MDRD) Non-Af 60 mL/min (>60) 04/08/19 04:40 23.5 RATIO (10-20) H 04/08/19 04:40 Glucose 529 mg/dL (74-106) H* 04/08/19 16:55 Vancomycin Trough 12.0 ug/mL (5.0-15.0) 04/09/19 03:20 Microbiology: Microbiology 04/07/19 18:30 Wound - Left Foot Gram Stain - Final 04/07/19 18:30 Wound - Left Foot Wound Culture - Preliminary Beta streptococcus Staphylococcus species Weight used for dosin.4 kg Estimated Creatinine Clearance: 60 Goal Trough: 15-20 mcg/mL Pharmacy Plan for Drug Dosin04/09/19 trough level was 12.0, below target range of 15-20. Increased dose to 1000mg q12h and will re-draw trough before fourth new dose. Pharmacy Service will continue to monitor and adjust dosing as required. Follow-Up Labs: Trough Vancomycin Labs to be done on [date and time ordered]: 04/11/19 @[id number]
[2019-04-09] MEDS: Insulin Lispro 100 UNIT/ML INSULN.PEN SC ×3 (07:00→21:35)
[2019-04-09 07:05] LABS: Bedside Glucose 344 mg/dL (70-110)
--- NOTE | 2019-04-09 07:56 | PN_ITS ---
Subjective: The patient is a 53-year-old female with a past medical history of uncontrolled diabetes mellitus type 2, diabetic ulcers, diabetic polyneuropathy, coronary artery disease with history of PTCA/DARA to the mid LAD and proximal LAD, restless leg syndrome, chronic anxiety, chronic back pain, GERD, hyperlipidemia obesity and hypertension who was admitted to [facility] with a nonhealing diabetic foot ulcer. A culture taken by podiatry on 04/04/2019 was positive for group B strep as well as MSSA. She was started on vancomycin and consult was obtained with Dr. Guadarrama. MRI showed no evidence of osteomyelitis. There was persistent soft tissue thickening and a tibiotalar effusion. There were neuropathic changes seen in the midfoot. There was a small abscess noted within the plantar subcutaneous tissue and a probable fistulous tract to the skin surface adjacent to the fifth metatarsal remnant. There were foci of decreased signal within the subcutaneous tissue and the deep musculature of the foot that suggested gas. The wound was debrided on 04/08/2019 at the bedside by Dr. Guadarrama. Lower extremity arterial studies were ordered. She has been afebrile for 24 hours now. Vital signs are stable. She is maintaining appropriate oxygen saturation on room air. All lab and imaging was personally reviewed. White blood cell count has been normal since admission. She initially had a left shift but the very next day the differential was unremarkable. Hemoglobin on 04/08/2019 was 8.8 with a low MCV and a normal RDW. Sodium was initially 130 and the following day was up to 134. CRP is 155 and ESR is 117. Blood sugars are grossly uncontrolled PCR on discharge from the wound is positive for staph aureus and negative for MRSA. Wound culture from 04/07/2019 is growing beta Streptococcus and Staphylococcus species. Admits to being depressed even though she is on Lexapro 10 mg daily. She is currently caring for her grandson and is rather overwhelmed by this. She admits to not taking care of herself. She does sometimes check her blood sugars and they are always high. Hemoglobin A1c is 12.3. States her pain is adequately controlled. Denies nausea, vomiting, diarrhea. - Physical Exam General: Alert, Oriented x3, Cooperative, Well developed, Well nourished HEENT: Atraumatic, PERRLA, EOMI, Normocephalic Oral: Moist Mucosa Neck: Supple, No JVD Lungs: Clear to auscultation Cardiovascular: Regular rate, Regular Rhythm, Normal S1, Normal S2, No murmurs, No rub noted, No Gallop Abdomen: Bowel Sounds Present, Soft, Non Tender, Non-Distended Extremities: No cyanosis, No edema, - - she has had amputation of the fifth toe on both feet in the past. Skin: No rashes, - - The wound was recetnly dressed and I did not examine. Neurological: Cranial nerves II-XII grossly intact, Neuro grossly intact Psych/Mental Status: Flat Affect Vital Signs Temp Pulse Resp BP Pulse Ox 98.2 F 80 16 157/78 H 97 04/09/19 03:46 04/09/19 03:46 04/09/19 03:46 04/09/19 03:46 04/09/19 03:46 Oxygen Delivery Method Room Air Weight: 186 lb Body Mass Index (BMI) 29.9 Finger Stick Blood Glucose 182 Intake and Output for Last 24 Hours 04/07/19 04/08/19 04/09/19 23:59 23:59 23:59 Intake Total 1758 / 1758 1298 / 1298 Output Total 1200 / 1200 1000 / 1000 Balance 558 / 558 298 / 298 Microbiology Past 72 Hours 04/07/19 18:30 Gram Stain - Final Wound - Left Foot Wound Culture - Preliminary Beta streptococcus Staphylococcus species Laboratory Tests Past 24 Hrs 04/08/19 04/09/19 16:55 03:20 Glucose 529 H* Vancomycin Trough 12.0 POC Glucose 04/09/19 04/09/19 04/08/19 06:58 00:36 16:35 POC Glucose 344 H 315 H 489 H* 04/08/19 12:34 POC Glucose 339 H Medical Necessity - Tobacco Use Smoking Status: Never smoker Assessment/Plan All Active Problems (Last Reviewed 04/07/19 @ 18:22 by Kali Prado DO) Cellulitis of foot, left (Acute) Necrotizing soft tissue infection (Acute) Intractable nausea and vomiting (Acute) Chest pain (Resolved) Osteomyelitis (Resolved) Severe sepsis (Acute) Wound of foot (Acute) NSTEMI (non-ST elevated myocardial infarction) (Resolved) Impressions 1. Diabetic foot ulcers bilaterally possible osteomyelitis of the left foot. R lateral malleolus diabetic ulcer 2. Diabetes mellitus type 2-uncontrolled 3. Obesity 4. Depression-not adequately treated. Patient is receiving Lexapro but has not had any recent psychotherapy. She has been seen at the [facility], [place], operated by [facility] in the past. 5. Hypertension 6. Normocytic anemia-stable Adjust the insulin...add scheduled mealtime insulin and continue the SSI Continue Vanco Discussed with Dr. Guadarrama and he is taking the patient to surgery today for further debridement and for bone biopsy and culture Check iron studies and reticulocyte count Guaifenesin for dry nonproductive cough Code Visit Inpatient E&M: 62430 Subs Hosp L2
[2019-04-09 08:36] LABS: Hematocrit 29.7 % (37-47); Hemoglobin 9.2 g/dl (12.0-15.0)
[2019-04-09 08:57] LABS: Anion Gap 6 (5-15); BUN 19 mg/dL (7-18); Calcium,Total 8.9 mg/dL (8.5-10.1); Chloride 105 mmol/L (98-107); Creatinine, Serum 0.95 mg/dL (0.55-1.02); EST Glomerular Filtration Rate 65 mL/min (>60); Est Glom Filt Rate - Afr Amer 79 mL/min (>60); Estimated Creatinine Clearance 64.11 ml/min; Glucose 302 mg/dL (74-106); Magnesium 2.1 mg/dL (1.6-2.6); Phosphorus 3.5 mg/dL (2.5-4.9); Potassium 4.6 mmol/L (3.5-5.1); Sodium Level 137 mmol/L (136-145)
[2019-04-09 08:58] LABS: Hemoglobin A1c 12.3 % (4.2-6.3)
[2019-04-09] MEDS: 0.9% NaCl Peripheral Flush Adult/Peds IV (09:01)
[2019-04-09] MEDS: Ondansetron 4 MG/2 ML Vial IV (09:01)
[2019-04-09] MEDS: 0.9% Normal Saline 1,000 ML 100 ML IV (09:04)
[2019-04-09] MEDS: Lisinopril 5 MG Tablet PO (09:06)
[2019-04-09] MEDS: Metoprolol Tartrate 25 MG Tablet 12.5 MG PO ×2 (09:06→21:33)
[2019-04-09] MEDS: Gabapentin 300 MG Capsule 900 MG PO ×2 (09:06→16:37)
[2019-04-09] MEDS: oxyCODONE 5 MG Tablet PO ×2 (09:07→18:29)
[2019-04-09] MEDS: Escitalopram Oxalate 10 MG Tablet PO ×2 (09:07→18:35)
[2019-04-09] MEDS: Pramipexole Di-HCl 1 MG Tablet 1.5 MG PO ×2 (09:09→21:34)
[2019-04-09 09:31] LABS: Bedside Glucose 286 mg/dL (70-110)
--- NOTE | 2019-04-09 09:53 | PCM.HP.ID ---
Reason for Consult: Left diabetic foot infection Consulted by: Dr. Wei History of Present Illness: The patient is a 53 year old F [] This is a 53-year-old white female with a long-standing history of diabetes mellitus complicated by peripheral neuropathy, previous diabetic foot infections, coronary artery disease status post the placement who was admitted with progressive soft tissue infection of left foot. Patient is currently on parenteral vancomycin. Wound cultures of the left foot from recent debridement grew out MSSA and group B beta-hemolytic strep. Patient currently denies any fevers or chills no constitutional symptoms. She did undergo imaging studies including MRI of the left foot which I have reviewed. Patient is being taken to surgery by podiatry for debridement of the left foot and also bone biopsy. Overall clinically stable. No cardiopulmonary distress no gastrointestinal symptoms. - Medical History Past Medical History (Chronic Problems): Chronic Problems (Last Reviewed 04/07/19 @ 18:22 by Kali Prado DO) Ulcer of right lower extremity with fat layer exposed (Chronic) Chronic ulcer of left foot with fat layer exposed (Chronic) 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) Acquired varus deformity of left foot (Chronic) Delayed wound healing (Chronic) Malnutrition (Chronic) Type 2 diabetes mellitus with diabetic polyneuropathy (Chronic) Chronic ulcer of left foot with necrosis of muscle (Chronic) Stented coronary artery (Chronic) Successful PTCA/DARA mid LAD with a 2.25 x 16 Promus Synergy, postdilated throughout with a 2.5 x 8 NC Balloon; 85%-->0%, no dissection and successful PTCA/DARA proximal LAD with a 2.5 x 12 Promus Synergy, post dilated with a 2.5 x 8 NC balloon; 75%-->0%, no dissection on 09/21/2018 @ [facility]. Atherosclerosis of [place] coronary artery of [place] heart without angina pectoris (Chronic) Successful PTCA/DARA mid LAD with a 2.25 x 16 Promus Synergy, postdilated throughout with a 2.5 x 8 NC Balloon; 85%-->0%, no dissection and successful PTCA/DARA proximal LAD with a 2.5 x 12 Promus Synergy, post dilated with a 2.5 x 8 NC balloon; 75%-->0%, no dissection on 09/21/2018 @ [facility]. Hemoglobin A1c greater than 9.0% (Chronic) 12.2 Diabetic ulcer of right ankle (Chronic) diabetic ulcer abscess right lateral malleolus Abscess of right lower leg (Chronic) diabetic ulcer abscess right lateral malleolus HTN (hypertension) (Chronic) HLD (hyperlipidemia) (Chronic) Neuropathic pain (Chronic) GERD (gastroesophageal reflux disease) (Chronic) Hypomagnesemia (Chronic) Back pain, chronic (Chronic) Depression (Chronic) Diabetic foot ulcer associated with type 2 diabetes mellitus (Chronic) RLS (restless legs syndrome) (Chronic) Type II diabetes mellitus, uncontrolled (Chronic) Anxiety state (Chronic) Allergies/Adverse Reactions: Allergies Penicillins Allergy (Verified 04/07/19 14:43) Shortness of breath metronidazole Adverse Reaction (Verified 04/07/19 14:43) Nausea OXYCONTIN Allergy (Uncoded 04/07/19 14:43) Shortness of breath Home Medications: Ambulatory Orders Medication Instructions Recorded Ascorbic Acid [Vitamin C] 500 mg PO DAILY 09/20/18 Gabapentin [Neurontin] 900 mg PO TIDCM 09/20/18 Ropinirole HCl [Requip] 3 mg PO BID 09/20/18 Atorvastatin Calcium [Lipitor] 80 mg PO QHS 09/23/18 Lisinopril [Zestril] 5 mg PO DAILY 09/23/18 Metoprolol Tartrate [Lopressor 12.5 mg PO BID 09/23/18 (beta kunal)] escitalopram 10 mg tablet 10 mg PO DAILY 09/28/18 Clopidogrel Bisulfate [Plavix] 75 mg PO DAILY 12/21/18 Metoclopramide [Reglan] 10 mg PO TID PRN #30 tablet 12/29/18 Acetaminophen [Tylenol Tablet] 650 mg PO Q6H PRN PRN 01/04/19 Insulin Lispro [Humalog KwikPen] See Protocol SC TIDCM 01/04/19 Insulin Lispro [Humalog KwikPen] unit SQ TIDCM 01/04/19 Oxycodone HCl 5 mg PO TID 01/04/19 Calcium Carbonate [Tums] 500 mg PO Q4H PRN PRN 04/02/19 Clindamycin HCl [Cleocin] 300 mg PO Q6H #40 cap 04/02/19 Insulin Glargine,Hum.rec.anlog 30 unit SQ DAILY 04/02/19 [Lantus Solostar] - Social History SMOKING STATUS:: Never smoker Vital Signs Temp Pulse Resp BP Pulse Ox 98.2 F 79 16 168/91 H 95 04/09/19 09:00 04/09/19 09:06 04/09/19 09:00 04/09/19 09:00 04/09/19 09:00 Oxygen Delivery Method Room Air Weight: 84.368 kg Body Mass Index (BMI) 29.9 Finger Stick Blood Glucose 182 Microbiology Past 72 Hours 04/07/19 18:30 Gram Stain - Final Wound - Left Foot Wound Culture - Preliminary Beta streptococcus Staphylococcus species Laboratory Tests Past 24 Hrs 04/08/19 04/09/19 04/09/19 16:55 03:20 03:20 Hgb 9.2 L Hct 29.7 L Sodium Potassium Chloride Carbon Dioxide Anion Gap BUN Creatinine Estim Creat Clear Calc Est GFR (MDRD) Af Amer Est GFR (MDRD) Non-Af BUN/Creatinine Ratio Glucose 529 H* Hemoglobin A1c Calcium Phosphorus Magnesium Vancomycin Trough 12.0 04/09/19 04/09/19 03:20 03:20 Hgb Hct Sodium 137 Potassium 4.6 Chloride 105 Carbon Dioxide 26.0 Anion Gap 6 BUN 19 H Creatinine 0.95 Estim Creat Clear Calc 64.11 Est GFR (MDRD) Af Amer 79 Est GFR (MDRD) Non-Af 65 BUN/Creatinine Ratio 20.0 Glucose 302 H Hemoglobin A1c 12.3 H Calcium 8.9 Phosphorus 3.5 Magnesium 2.1 Vancomycin Trough - Other Studies Radiology: [] Other Studies: [] Route of nutrition/ use of supplements: [] Nutritional Intake: [] IV Site: [] Tirado Catheter: [] Patient is alert does not appear toxic lungs are clear heart exam S1-S2 abdomen soft nontender both feet dressings are in place. - Assessment/Plan Antibiotics: [] Assessment/Plan: [] Diabetic left foot infection with MSSA and group B beta-hemolytic strep. Patient has a severe penicillin allergy. Okay to continue parenteral vancomycin for now and follow her postop course. Patient is also getting a bone biopsy in lieu of the elevated inflammatory markers.
--- NOTE | 2019-04-09 10:10 | CASEMGMT ---
[facility] [place] Face to Face with patient for initial transition planning/care coordination assessment. RN BEKA introduced self and role at [facility]. Patient lying in bed, alert and oriented. Patient willing to participate in assessment and is able to answer all questions appropriately. Care providers, pharmacy, and demographics verified. Patient states that she is not sure of plan at discharge, but will do whatever the doctors tell her. Patient states she has no further needs or concerns at this time. CM to follow for discharge planning needs that may arise. PCP: Jeaneth Specialists: Herve, clinical unit educator; Markel, materials analyst; Juju, pain; Teresa, vending attendant Preferred Pharmacy: [facility] [place] Insurance: [facility], Accredible Prescription Benefit: yes Living Will/HPOA: none LNOK: daughter Living Arrangements: Patient states that she lives in a 1 story home with daughter staying with her. Patient states she is independent. 3 steps and railing to enter the home. Transportation: daughter DME/HHC: Pateint states she has a shower chair, BSC, grab bars, walker, rollator, and wheelchair. Patient states she has a glucometer and testing supplies at home but she has not been checking her BS due to babysitting her grandson, states she forgets. Hgb A1C is 12.3. RN BEKA discussed importance of testing and managing BS to help with wound healing. Patient states that she does not have plan for at discharge and will do whatever the doctors say. Patient has flat affect. Patient has been to [facility], [facility], and [place] in the past and states if she needs to go somewhere would prefer TCU. Patient states she has had [facility] in the past for HHC. Disposition Plan: TBD, will follow and plan accordingly based on course of treatment. Erika MANLEY, RN, CM
--- NOTE | 2019-04-09 10:54 | NURSING ---
Wound photo: left lateral foot
--- NOTE | 2019-04-09 10:56 | NURSING ---
wound photo: right lateral malleolus
--- NOTE | 2019-04-09 11:06 | CASEMGMT ---
Social Work Note SW placed a call to Samantha at [facility]. Per Samantha pt was discharged from [facility] on 01/22/2019. Erika Tobar OCCUPATIONAL THERAPY ASSIST, [employer] CAKE DECORATOR
[2019-04-09 12:26] LABS: Bedside Glucose 275 mg/dL (70-110)
--- NOTE | 2019-04-09 13:00 | RAD_ITS ---
STUDY: X-RAY - LEFT FOOT CLINICAL: Female, 53 years old. Left foot debridement TECHNIQUE: 4 view(s) of the foot. COMPARISON: April 07, 2019 FINDINGS: 4 fluoroscopic guided views were obtained during debridement of the plantar surface of the lateral foot as per clinical history. There is postop change status post resection of the small toe through the base of the fifth metatarsal. No radiopaque foreign bodies within the soft tissues RAD/Foot min 3 Views IMPRESSION: Fluoroscopic guided debridement of the plantar surface of the lateral foot Electronically Signed: Jefe Cesar MD at 16:09 EDT , Service support ,
--- NOTE | 2019-04-09 14:00 | BON_PTH ---
PATIENT: DIONY ROCHA LOC: MS3 U#:[id number] AGE/SX: 53/F ROOM: MS316 RE04/07/[address]: Dr. Vivian Wei DO : 1965 BED: 1 DIS: 04/11/2019 SPEC #: [id number] RECD: 04/09/19 15:43 STATUS: LON CHILANGO #: [id number] ANEL: 04/09/19 14:[address]: Jefe Guadarrama DEPT: SURGICAL PATHOLOGY RECD BY: Malik Taylor ENTERED: 04/10/19 09:48 SP TYPE: Bone OTHR DR: DO Dr. Kali Hutchinson DO Dr. Mark Elderbrock, MD Dr. Robert Leininger, MD Tissues: A - Bone of foot, NOS B - Bone of foot, NOS C - Left foot Procedures: PAS Fungus (control) Decalcification bone/plaque Special Stain Group I Surgery Specimen Level III AFB Stain (control) HEADER OPERATION: Debridement wound left foot biopsy PRE-OP DIAGNOSIS: Left foot abscess and osteomyelitis TISSUE SUBMITTED: A - Left third cuneiform/midfoot bone biopsy, B - Left fifth metatarsal bone biopsy, C - Left foot abscess MICROSCOPIC DIAGNOSIS A. Left third cuneiform/midfoot bone biopsy: A piece of bone, negative for acute osteomyelitis. B. Left fifth metatarsal bone, biopsy: A piece of bone with reactive changes, negative for acute osteomyelitis. C. Left foot abscess: Pieces of skin and soft tissue with ulceration, acute inflammation, granulation tissue reaction and abscess formation. Special stains for acid fast bacilli and fungi are negative for organisms; matched controls are appropriate. MARY ANN:aristides 04/18/19 MICROSCOPIC DESCRIPTION Slides are reviewed. GROSS DESCRIPTION A - Received in fixative is one container labeled with the patient's name and designated left third cuneiform/midfoot bone biopsy. The specimen consists of a single irregular fragment of light mahajan bone measuring 0.4 x 0.2 x 0.2 cm. The specimen is submitted in its entirety in one cassette after decalcification. B - Received in fixative is one container labeled with the patient's name and designated left fifth metatarsal bone biopsy. The specimen consists of multiple irregular fragments of white-mahajan bone that in aggregate measure 3 x 2.5 x 1 cm. Stave Planer Tender portions are submitted in one cassette after decalcification. C - Received in fixative is one container labeled with the patient's name and designated foot abscess. The specimen consists of multiple irregular fragments (greater than 10 fragments) of skin and light mahajan attached soft tissue that in aggregate measure 6 x 6 x 1 cm. Stave Planer Tender sections are submitted in one cassette. / AM:aristides 04/10/19 TC:2 CPT: 57485 x3, 69586 x2, 66666 x2
--- NOTE | 2019-04-09 14:53 | NURSING ---
1300-PT OFF UNIT VIA BED FOR SURGERY
[2019-04-09] MEDS: Bupivacaine Mpf 0.5% 30 ML VIAL (15:08)
--- NOTE | 2019-04-09 15:13 | PCM.OPRPT ---
Report of Operation Date of Procedure: 04/09/19 Pre-Operative Diagnosis: Abscess, cellulitis, osteomyelitis left foot Post-Operative Diagnosis: Same Surgery/Procedure Performed:: Debridement of all nonviable and infected soft tissue and bone left foot with bone biopsies of the left midfoot and 5th metatarsal blood splatter analyst: None Type of Anesthesia:: General Specimen's removed: 1. Bone biopsy of left midfoot (from 3rd cuneiform) sent to pathology and microbiology. 2. Bone biopsy of the left residual 5th metatarsal sent to pathology and microbiology. 3. 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 Patient was admitted with staph aureus and strep infection to left foot. MRI was obtained with showed abscess as well as possible osteomyelitis to the 5th metatarsal (bone marrow edema) and midfoot. Due to this she elected to undergo further debridement of all nonviable necrotic soft tissue and bone, with bone biopsies. Reviewed the possible benefits vs risks, goals, expectations and estimated healing time. Ultimately patient understands she is at risk for further infection, amputation, loss of limb, and loss of life, also persistent or even worsening infection and ultimate limb loss. Also advised patient risks also include but are not limited to need for further surgery, blood clots, weakness, transfer lesions, ischemia, bleeding, pain, chronic pain, deformity, numbness, swelling, inability to walk or wear shoes, charcot foot, complex regional pain syndrome, and again loss of limb, and loss of life. Patient expressed understanding and agreement. All of her questions were answered. The consent form was reviewed with patient, and the patient freely signed it. No guarantees were given nor implied. Patient understands she is at very high risk of limb loss due to her uncontrolled diabetes and nonadherence. I have reviewed and discussed with medicine team. Operative Procedure: The patient was brought back to the operating room and was placed on the operating room table in the supine position. The patient was carefully secured to the operating room table with a safety belt around her waist. The patient was already on IV antibiotics - Vancomycin per Infectious Disease service. A time out was performed and the patient was properly identified and the surgical plan was confirmed. The patient received general anesthesia per the anesthesia team. A well padded pneumatic tourniquet was applied to the left ankle. The left foot was scrubbed, prepped and draped in the usual aseptic fashion. Further attention was directed to the left foot, where there was significant large ulceration to the plantar lateral foot at site of residual 5th metatarsal base, there was significant fibrotic tissue with some granular tissue, there was undermining and tracking underneath the ulceration margins to the medial midfoot and lateral midfoot. There was chronic abscess formation to the site with nonviable subcutaneous tissue present, there was drainage consistent with infection. There was surrounding edema and some cellulitis. The residual 5th metatarsal bone was very prominent. The left foot was elevated for 3 minutes and the left ankle pneumatic tourniquet was inflated to 250mmHg. Using a #15 scalpel blade a small skin incision was made overlying the dorsal midfoot, careful dissection was completed down to the midfoot bone, specifically 3rd cuneiform, and a bone biopsy was taken using the Joshua bone biopsy kit - this was sent to pathology and microbiology for further evaluation. This was was hard and white with questionable yellow discoloration. The site was flushed out with copious amounts of normal saline solution and skin reapproximated using 4-0 Nylon. Using a #15 scalpel blade an incision was made overlying the dorsal residual 5th metatarsal bone, careful dissection was completed down to the bone. The prominent component of the 5th metatarsal bone was resected using a powered sagittal saw and bone cutting rongeur, this was was softer than normal. This resected bone was sent to pathology and microbiology for further evaluation. The site was flushed out with copious amounts of normal saline solution and skin reapproximated using 4-0 Nylon. At this time the ulceration was debrided in excisional fashion of all nonviable, infected tissue, including the base and the margins, excising the margins which undermined, and also the abscess was debrided and excised using a 15 scalpel blade. The wound was also debrided using the Versajet. This was debrided down to healthy viable bleeding tissue down to the deep fascia layer and bone at the level. Post debridement the ulcer measured 3.5cm x 6cm and 1cm in depth (pre debridement it was 2cm x 5cm and 0.7cm in depth). The pneumatic tourniquet was deflated (total time was 40 minutes). There was immediate return of warmth and perfusion to the foot and all of the toes. The tissues were bleeding and were healthy and viable at this time. CFT was less than 2 seconds to all toes on the left foot. A dressing of adaptic, 4x4 gauze, abd pads, and brando wrap were applied to the left foot. Fluoroscopic images were obtained and saved. These confirmed localization of the midfoot and 5th metatarsal, as well as proper resection of the prominent 5th metatarsal. The patient tolerated the above procedure and anesthesia well with no complications. Patient was transported to the recovery room with vital signs stable and in good condition. Post operative orders were placed. No weightbearing left foot, keep left foot elevated. Postoperative xrays of the left foot were obtained and reviewed, no complications seen. Post-op instructions were reviewed. Patient to be followed as inpatient. Grafts/Implants Used: None - Complications None
[2019-04-09 15:40] LABS: Bedside Glucose 263 mg/dL (70-110)
[2019-04-09] MEDS: Vancomycin IV 1,000 MG/200 ML BAG 200 MG IV (16:37)
[2019-04-09] MEDS: Insulin Lispro 100 UNIT/ML INSULN.PEN 6 UNIT SC (16:41)
--- NOTE | 2019-04-09 17:06 | NURSING ---
1600-pharmacy aware to send 10mg lexapro
--- NOTE | 2019-04-09 17:20 | RAD_ITS ---
HISTORY: post op left foot debridement EXAM/TECHNIQUE: XR Foot Min 3 Views: Left. COMPARISON: Fluoroscopic images same date. FINDINGS: # of images incl. paperwork: 3 Postoperative changes from recent debridement of the lateral left foot including resection of a portion of the residual shaft of the fifth metatarsal in the setting of remote previous left transmetatarsal amputation. There is soft tissue swelling and soft tissue air. No fracture or acute osseous abnormality is evident. Postoperative irregularity of the residual stump of the fifth metatarsal is noted. RAD/Foot min 3 Views IMPRESSION: Postoperative changes as above. at 2223 Reported and signed by: Juanjo Galloway MD Electronically Signed: Juanjo Galloway, at 22:22 EDT Tel , Service support ,
[2019-04-09 18:41] LABS: Bedside Glucose 389 mg/dL (70-110)
[2019-04-09] MEDS: guaiFENesin 1,200 MG Tablet 1200 MG PO (18:44)
[2019-04-09 20:10] LABS: Ferritin 92 ng/mL (8-252); Iron 32 ug/dL (50-170); Iron Binding Capacity,Total 285 ug/dL (250-450); PERCENT IRON SATURATION 11.2 % (15.0-55.0)
[2019-04-09 20:21] LABS: Immature Platelet Fraction 2.1 % (1.0-7.9); RET-HE 23.6 pg (30-35); Reticulocyte Count 1.59 % (0.5-1.5)
[2019-04-09] MEDS: Atorvastatin Calcium 80 MG Tablet PO (21:35)
[2019-04-09 21:41] LABS: Bedside Glucose 384 mg/dL (70-110)
[2019-04-10] VITALS (7 sets, daily range): BP systolic 100–156; BP diastolic 57–94; PULSE 65–85; RESP 16–18; TEMP 36.6–36.8; O2SAT 94–99
[2019-04-10] MEDS: oxyCODONE 5 MG Tablet PO ×4 (00:48→21:38)
[2019-04-10] MEDS: Vancomycin IV 1,000 MG/200 ML BAG 200 MG IV (03:58)
--- NOTE | 2019-04-10 07:24 | PN_ITS ---
Subjective: Day #4 antibiotics Postoperative day #1-status post debridement of all nonviable and infected soft tissue and bone of the left foot with bone biopsies of the left midfoot and fifth metatarsal All events of the past 24 hours of been reviewed Afebrile Systolic blood pressure is consistently elevated mildly Fluid balance since admission is positive approximately 2400. Blood sugars are not adequately controlled-patient was kept n.p.o. for the majority of the day yesterday in preparation for surgery by wanting to debride the left foot. Echocardiogram in September 2018 showed a 50% left ventricular ejection fraction with stage I diastolic dysfunction and mild TR. The apex was hypokinetic. Cardiac catheterization in September 2018 showed left main was angiographically normal, proximal LAD had 50% stenosis, mid LAD had 80% stenosis in the distal LAD had 70% stenosis. The RCA was angiographically normal and the circumflex artery had a 60% stenosis. Left ventriculogram showed a 45% EF and mild anterior hypokinesis. Underwent PTCA/DARA to the mid LAD. Lower extremity arterial study showed triphasic Doppler waveforms at the ankle bilaterally. Pulse?volume recording waveform amplitudes appear satisfactory at all levels including low thigh, calf, ankle and digital levels. ABIs are normal bilaterally. No evidence of significant arterial occlusive disease. Objective: PHYSICAL EXAM: GENERAL: alert, oriented X 3, Cooperative, NAD ORAL: moist mucosa, no mucosal lesions NECK: No JVD, supple, trachea midline LUNGS: CTA, symmetric chest expansion HEART: RRR, Normal S1 and S2, no rub, no gallop ABDOMEN: soft, NT, ND, BS present, no guarding with palpation EXTREMITIES: no edema, no cyanosis, the wounds were recently examined by Dr. Guadarrama and I did not take down the dressings. Please see his dictation for description of the wounds. SKIN: No rashes, no breakdown NEUROLOGIC: no focal neurologic deficits PSYCH: appropriate, normal affect, pleasant - Physical Exam Vital Signs Temp Pulse Resp BP Pulse Ox 98.2 F 75 16 156/94 H 94 04/10/19 02:00 04/10/19 02:00 04/10/19 02:00 04/10/19 02:00 04/10/19 02:00 Oxygen Delivery Method Room Air Weight: 186 lb Body Mass Index (BMI) 29.9 Finger Stick Blood Glucose 182 Intake and Output for Last 24 Hours 06/04/09/19 04/10/19 23:59 23:59 23:59 Intake Total 1758 / 1758 2432 / 2432 396 / 396 Output Total 1200 / 1200 1000 / 1000 Balance 558 / 558 1432 / 1432 396 / 396 Microbiology Past 72 Hours 04/07/19 15:30 Blood Culture - Preliminary Blood Culture (Wb) - Anticubital Left No growth in 48 hours. 04/07/19 18:30 Gram Stain - Final Wound - Left Foot Wound Culture - Preliminary Streptococcus group B Staphylococcus aureus Laboratory Tests Past 24 Hrs 04/09/19 04/09/19 04/09/19 03:20 03:20 03:20 Hgb 9.2 L Hct 29.7 L Immature Plt Fraction Retic Count Immature Retic Fraction Retic Hgb Equivalent Sodium 137 Potassium 4.6 Chloride 105 Carbon Dioxide 26.0 Anion Gap 6 BUN 19 H Creatinine 0.95 Estim Creat Clear Calc 64.11 Est GFR (MDRD) Af Amer 79 Est GFR (MDRD) Non-Af 65 BUN/Creatinine Ratio 20.0 Glucose 302 H Hemoglobin A1c 12.3 H Calcium 8.9 Phosphorus 3.5 Magnesium 2.1 Iron TIBC Iron Saturation Ferritin 04/09/19 04/09/19 03:20 03:20 Hgb Hct Immature Plt Fraction 2.1 Retic Count 1.59 H Immature Retic Fraction 22.90 H Retic Hgb Equivalent 23.6 L Sodium Potassium Chloride Carbon Dioxide Anion Gap BUN Creatinine Estim Creat Clear Calc Est GFR (MDRD) Af Amer Est GFR (MDRD) Non-Af BUN/Creatinine Ratio Glucose Hemoglobin A1c Calcium Phosphorus Magnesium Iron 32 L TIBC 285 Iron Saturation 11.2 L Ferritin 92 POC Glucose 04/09/19 04/09/19 04/09/19 21:32 18:34 15:32 POC Glucose 384 H 389 H 263 H 04/09/19 04/09/19 12:18 09:15 POC Glucose 275 H 286 H Medical Necessity - Tobacco Use Smoking Status: Never smoker Assessment/Plan All Active Problems (Last Reviewed 04/07/19 @ 18:22 by Kali Prado DO) Cellulitis of foot, left (Acute) Diabetic foot ulcers (Acute) Chest pain (Resolved) Intractable nausea and vomiting (Resolved) Malnutrition (Resolved) Necrotizing soft tissue infection (Resolved) Severe sepsis (Resolved) Impressions 1. Diabetic foot ulcers bilaterally possible osteomyelitis of the left foot. R lateral malleolus diabetic ulcer 2. Diabetes mellitus type 2-uncontrolled 3. Obesity 4. Depression-not adequately treated. Patient is receiving Lexapro but has not had any recent psychotherapy. She has been seen at the [facility] in the past. 5. Hypertension 6. Normocytic anemia-stable iron studies are not consistent with iron deficiency. Anemia may be due to chronic infection 7. Coronary artery disease with history of PTCA/DARA to the mid LAD in September 2018 8. Mild ischemic cardiomyopathy with a 45% ejection fraction on left ventriculogram in September 2018 9. Stage II?stage III chronic renal failure 10. Diabetic polyneuropathy of the lower extremities Check a microalbumin/creatinine ratio Lipid panel and repeat lab in the a.m. Continue to monitor blood sugars and adjust insulin as needed Code Visit Inpatient E&M: 60588 Subs Hosp L2
--- NOTE | 2019-04-10 08:34 | PN_ITS ---
Subjective: Patient was seen this morning for follow up on left foot, s/p debridement on 04/09/19. Patient resting comfortably in bed with no new complaints. No complaints of fever, chills, nausea or vomiting. - Physical Exam General: Alert, Oriented x3, Cooperative, No apparent distress Extremities: Capillary Refill Less than 3 Seconds, No Calf Tenderness, - - s/p debridement left foot - debridement site with healthy viable tissue down to deep fascia layer, no exposed bone, no maloder, no necrosis, no fluctuance, no purulence, no visible abscess, the cellulitis appears resolved at this time. No evidence of acute ischemia to the left foot or ankle. Musculoskeletal: No Tenderness to Palpation of Joints or Extremities Psych/Mental Status: Appropriate, Alert and oriented to time, place, person, mood and affect Vital Signs Temp Pulse Resp BP Pulse Ox 98.2 F 75 16 156/94 H 94 04/10/19 02:00 04/10/19 02:00 04/10/19 02:00 04/10/19 02:00 04/10/19 02:00 Oxygen Delivery Method Room Air Weight: 84.368 kg Body Mass Index (BMI) 29.9 Finger Stick Blood Glucose 182 Intake and Output for Last 24 Hours 04/08/19 04/09/19 04/10/19 23:59 23:59 23:59 Intake Total 1758 / 1758 2432 / 2432 396 / 396 Output Total 1200 / 1200 1000 / 1000 Balance 558 / 558 1432 / 1432 396 / 396 Microbiology Past 72 Hours 04/07/19 15:55 Blood Culture - Preliminary Blood Culture (Wb) - Anticubital Right No growth in 48 hours. 04/07/19 18:30 Gram Stain - Final Wound - Left Foot Wound Culture - Final Streptococcus agalactiae (B) Staphylococcus aureus 04/07/19 15:30 Blood Culture - Preliminary Blood Culture (Wb) - Anticubital Left No growth in 48 hours. Laboratory Tests Past 24 Hrs 04/09/19 04/09/19 04/09/19 03:20 03:20 03:20 Hgb 9.2 L Hct 29.7 L Immature Plt Fraction Retic Count Immature Retic Fraction Retic Hgb Equivalent Sodium 137 Potassium 4.6 Chloride 105 Carbon Dioxide 26.0 Anion Gap 6 BUN 19 H Creatinine 0.95 Estim Creat Clear Calc 64.11 Est GFR (MDRD) Af Amer 79 Est GFR (MDRD) Non-Af 65 BUN/Creatinine Ratio 20.0 Glucose 302 H Hemoglobin A1c 12.3 H Calcium 8.9 Phosphorus 3.5 Magnesium 2.1 Iron TIBC Iron Saturation Ferritin 04/09/19 04/09/19 03:20 03:20 Hgb Hct Immature Plt Fraction 2.1 Retic Count 1.59 H Immature Retic Fraction 22.90 H Retic Hgb Equivalent 23.6 L Sodium Potassium Chloride Carbon Dioxide Anion Gap BUN Creatinine Estim Creat Clear Calc Est GFR (MDRD) Af Amer Est GFR (MDRD) Non-Af BUN/Creatinine Ratio Glucose Hemoglobin A1c Calcium Phosphorus Magnesium Iron 32 L TIBC 285 Iron Saturation 11.2 L Ferritin 92 POC Glucose 04/09/19 04/09/19 04/09/19 21:32 18:34 15:32 POC Glucose 384 H 389 H 263 H 04/09/19 04/09/19 12:18 09:15 POC Glucose 275 H 286 H Medical Necessity - Tobacco Use Smoking Status: Never smoker Assessment/Plan All Active Problems (Last Reviewed 04/07/19 @ 18:22 by aKli Prado DO) Cellulitis of foot, left (Acute) Necrotizing soft tissue infection (Acute) Intractable nausea and vomiting (Acute) Chest pain (Resolved) Osteomyelitis (Resolved) Severe sepsis (Acute) Wound of foot (Acute) NSTEMI (non-ST elevated myocardial infarction) (Resolved) Deep ulceration lateral left foot w/ abscess and concerning for osteomyelitis s/p debridement and bone biopsies Cellulitis left foot Left foot deformity, 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 ESR and CRP elevated consistent with infection. s/p debridement and bone biopsies on 04/09/19. Ordered wound vac for left foot, continue with aquacel Ag dressing changes right ankle ulcer. Reviewed cultures - finals pending - ID has been consulted. Patient needs to be nonweightbearing left foot. Keep ulcerations offloaded at all times. Again, patient is at high risk for ultimate limb loss due to foot condition and overall patient's health status, along with her nonadherence. Reviewed importance of proper nutrition and blood sugar control to optimize foot health. Diabetes, and medical management per medicine team. Patient would benefit from intermediate placement due to lack of home support and need for wound care. Podiatry will continue to follow.
[2019-04-10] MEDS: Enoxaparin 40 MG/0.4 ML Syringe SC (08:41)
[2019-04-10] MEDS: Clopidogrel Bisulfate 75 MG Tablet PO (08:42)
[2019-04-10] MEDS: Multivitamins,Therapeutic Tablet 1 TABLET PO (08:42)
[2019-04-10] MEDS: Lisinopril 5 MG Tablet PO (08:42)
[2019-04-10] MEDS: Escitalopram Oxalate 20 MG Tablet PO (08:42)
[2019-04-10] MEDS: Metoprolol Tartrate 25 MG Tablet 12.5 MG PO ×2 (08:43→21:16)
[2019-04-10] MEDS: Gabapentin 300 MG Capsule 900 MG PO ×3 (08:43→17:43)
[2019-04-10] MEDS: Ascorbic Acid 500 MG Tablet PO ×2 (08:43→21:13)
[2019-04-10] MEDS: guaiFENesin 1,200 MG Tablet 1200 MG PO ×2 (08:43→21:13)
[2019-04-10] MEDS: Pramipexole Di-HCl 1 MG Tablet 1.5 MG PO ×2 (08:45→21:18)
[2019-04-10] MEDS: Insulin Lispro 100 UNIT/ML INSULN.PEN 6 UNIT SC ×3 (08:59→17:44)
[2019-04-10] MEDS: Insulin Lispro 100 UNIT/ML INSULN.PEN SC ×4 (09:00→21:20)
[2019-04-10 09:16] LABS: Bedside Glucose 373 mg/dL (70-110)
--- NOTE | 2019-04-10 09:26 | CASEMGMT ---
Addendum entered by Erika Lundy 04/10/19 14:19: KELSIE IRELAND received update from [facility] director, that they are able to accept the patient with anticipated discharge on 04/11/19. KELSIE IRELAND updated the patient and LUCRETIA Tobar regarding acceptance to TCU. Original Note: KELSIE IRELAND in to discuss discharge plans with patient. Patient would like TCU at discharge. KELSIE IRELAND informed patient that if would depend on bed availability. KELSIE IRELAND called [facility] in TCU to make referral. TCU has beds available and will review the patient. KELSIE IRELAND updated patient and LUCRETIA Tobar regarding referral to TCU.
--- NOTE | 2019-04-10 09:37 | NURSING ---
wound photo: left foot
--- NOTE | 2019-04-10 09:38 | NURSING ---
wound photo: left foot
[2019-04-10 10:08] LABS: Microalbumin:Creatinine Ratio 762.3 mg/g CRE (<30 mg/g CRE)
--- NOTE | 2019-04-10 10:37 | PCM.PN.ID ---
Subjective: Feeling ok, some nausea, no fever - Physical Exam General: Alert, Cooperative, No apparent distress Lungs: Clear to auscultation, Normal air movement Cardiovascular: Regular rate, Regular Rhythm Abdomen: Soft, Non Tender, Non-Distended Skin: Ulcer/ Wound - feet wrapped, reviewed photo Vital Signs Temp Pulse Resp BP Pulse Ox 98.2 F 85 16 150/85 H 97 04/10/19 08:00 04/10/19 08:43 04/10/19 08:00 04/10/19 08:00 04/10/19 08:00 Oxygen Delivery Method Room Air Weight: 84.368 kg Body Mass Index (BMI) 29.9 Finger Stick Blood Glucose 182 Intake and Output for Last 24 Hours 04/08/19 04/09/19 04/10/19 23:59 23:59 23:59 Intake Total 1758 / 1758 2432 / 2432 396 / 396 Output Total 1200 / 1200 1000 / 1000 Balance 558 / 558 1432 / 1432 396 / 396 Microbiology Past 72 Hours 04/07/19 15:55 Blood Culture - Preliminary Blood Culture (Wb) - Anticubital Right No growth in 48 hours. 04/07/19 18:30 Gram Stain - Final Wound - Left Foot Wound Culture - Final Streptococcus agalactiae (B) Staphylococcus aureus 04/07/19 15:30 Blood Culture - Preliminary Blood Culture (Wb) - Anticubital Left No growth in 48 hours. Laboratory Tests Past 24 Hrs 04/09/19 04/09/19 04/10/19 03:20 03:20 08:45 Immature Plt Fraction 2.1 Retic Count 1.59 H Immature Retic Fraction 22.90 H Retic Hgb Equivalent 23.6 L Iron 32 L TIBC 285 Iron Saturation 11.2 L Ferritin 92 Ur Random Microalbumin 388.0 Urine Creatinine 50.90 Microalb/Creat Ratio 762.3 H POC Glucose 04/10/19 04/09/19 04/09/19 08:58 21:32 18:34 POC Glucose 373 H 384 H 389 H 04/09/19 04/09/19 15:32 12:18 POC Glucose 263 H 275 H Medical Necessity - Tobacco Use Smoking Status: Never smoker Route of nutrition/ use of supplements: [] Nutritional Intake: [] IV Site: [] Tirado Catheter: [] - Assessment/Plan Antibiotics: [] Assessment/Plan: [] L DM foot suspected osteo - recent cx with MSSA and GBS. Will narrow vanc to cefazolin as she has tolerated cephalosporins with no issue in the past. Bone bx pending. Will follow
[2019-04-10 11:51] LABS: Bedside Glucose 284 mg/dL (70-110)
[2019-04-10] MEDS: Metoclopramide 10 MG Tablet PO (12:46)
[2019-04-10 17:41] LABS: Bedside Glucose 332 mg/dL (70-110)
--- NOTE | 2019-04-10 18:26 | NURSING ---
1230-THIS NURSE ATTEMPTED IV RESTART X2. 1ST ATTEMPT HAD GOOD BLOOD RETURN AND WAS ADVANCING EASILY BUT, PT WAS GRIMACING AND MOANING SAYING HOW MUCH IT HURTS, AND THE OTHER ONE DIDNT HURT. THE 2ND ATTEMPT VEIN ROLLED AND SINCE PT HAD THE COVERS PULLED UP OVER HER FACE, I DID NOT PROCEED. BEN Lemon RN ALSO ATTEMPTED X2. DR PADILLA AWARE AND ORDER FOR MIDLINE RECEIVED. CALL WAS PLACED TO IV ACCESS AT 1300 AND NOTIFIED
[2019-04-10] MEDS: Cefazolin 2 GM in 0.9% Normal Saline 100 ML IV (20:53)
[2019-04-10] MEDS: 0.9% NaCl Peripheral Flush Adult/Peds IV (21:00)
[2019-04-10] MEDS: Atorvastatin Calcium 80 MG Tablet PO (21:11)
[2019-04-10 21:35] LABS: Bedside Glucose 340 mg/dL (70-110)
[2019-04-11 03:23] VITALS: BP 112/57; PULSE 67; RESP 16; TEMP 36.4; O2SAT 96
[2019-04-11] MEDS: oxyCODONE 5 MG Tablet PO ×2 (03:39→11:56)
[2019-04-11] MEDS: 0.9% NaCl Peripheral Flush Adult/Peds IV ×6 (03:41→17:47)
[2019-04-11] MEDS: Cefazolin 2 GM in 0.9% Normal Saline 100 ML IV ×2 (06:26→14:03)
[2019-04-11 06:55] LABS: Absolute Lymphocyte Count 2.67 X10^3/ul (0.83-4.51); Absolute Neutrophil Count 4.7 X10^3/uL (2.0-7.7); Basophil# 0.02 X10^3/uL; Basophil% 0.2 % (0-1); Eosinophil# 0.23 X10^3/uL; Eosinophils% 2.8 % (0-5); Hematocrit 30.1 % (37-47); Hemoglobin 9.4 g/dl (12.0-15.0); Lymphocyte # 2.67 X10^3/ul (4.0); Lymphocyte % 32.5 % (19-41); Mean Corp Hgb Conc 31.2 g/gl (32-36); Mean Corpuscular Hgb 25.9 pg (27.0-32.0); Mean Corpuscular Volume 82.9 fL (81-99); Mean Platelet Vol. 10.2 fl (6.2-12.0); Monocyte# 0.55 X10^3/uL; Monocyte% 6.7 % (0-10); Neutrophil # 4.66 X10^3/uL (2.7-7.7); Neutrophil % 56.8 % (47-70); POSITIVE COUNT NO; POSITIVE DIFFERENTIAL NO; POSITIVE MORPHOLOGY NO; Platelet Count 435 K/mm3 (150-450); RBC Distribution Width CV 13.9 % (11.6-14.6); RBC Distribution Width SD 40.1 fl (35.1-43.9); Red Blood Count 3.63 M/mm3 (4.2-5.4); White Blood Count 8.2 K/mm3 (4.4-11.0)
[2019-04-11 07:20] LABS: Anion Gap 9 (5-15); BUN 28 mg/dL (7-18); BUN/Creat Ratio 29.8 RATIO (10-20); Calcium,Total 8.9 mg/dL (8.5-10.1); Chloride 103 mmol/L (98-107); Cholesterol 182 mg/dL (200); Creatinine, Serum 0.94 mg/dL (0.55-1.02); EST Glomerular Filtration Rate 66 mL/min (>60); Est Glom Filt Rate - Afr Amer 80 mL/min (>60); Estimated Creatinine Clearance 64.79 ml/min; Glucose 146 mg/dL (74-106); High Density Lipoprotein 33 mg/dL; Magnesium 1.8 mg/dL (1.6-2.6); Phosphorus 4.2 mg/dL (2.5-4.9); Potassium 3.8 mmol/L (3.5-5.1); Sodium Level 139 mmol/L (136-145); Triglycerides 256 mg/dL; Very Low Density Lipoprotein 51 mg/dL (5-40)
[2019-04-11] MEDS: Ascorbic Acid 500 MG Tablet PO (08:05)
[2019-04-11] MEDS: Insulin Lispro 100 UNIT/ML INSULN.PEN 8 UNIT SC (08:05)
[2019-04-11] MEDS: Gabapentin 300 MG Capsule 900 MG PO ×3 (08:06→17:44)
[2019-04-11] MEDS: guaiFENesin 1,200 MG Tablet 1200 MG PO (08:06)
[2019-04-11] MEDS: Escitalopram Oxalate 20 MG Tablet PO (08:06)
[2019-04-11] MEDS: Multivitamins,Therapeutic Tablet 1 TABLET PO (08:07)
[2019-04-11] MEDS: Enoxaparin 40 MG/0.4 ML Syringe SC (08:07)
[2019-04-11] MEDS: Lisinopril 5 MG Tablet PO (08:08)
[2019-04-11] MEDS: Clopidogrel Bisulfate 75 MG Tablet PO (08:08)
[2019-04-11] MEDS: Pramipexole Di-HCl 1 MG Tablet 1.5 MG PO (08:09)
[2019-04-11 08:13] VITALS: PULSE 74
[2019-04-11] MEDS: Metoprolol Tartrate 25 MG Tablet 12.5 MG PO (08:13)
[2019-04-11 08:19] VITALS: BP 131/72; PULSE 74; RESP 18; TEMP 37.2; O2SAT 96
[2019-04-11 08:20] VITALS: PULSE 80
--- NOTE | 2019-04-11 09:22 | CASEMGMT ---
Addendum entered by Erika Tobar 04/11/19 13:57: Pt is able to discharge to TCU once medically cleared. Green sheet on chart. Original Note: Social Work Note SW spoke with Lesley with TCU/RU and informed her that pt should be discharged to TCU today if medically cleared. Plan: TCU today if medically cleared Erika Tobar THERAPY COORDINATOR, GEODETIC ADVISOR
[2019-04-11] MEDS: Insulin Lispro 100 UNIT/ML INSULN.PEN SC (11:06)
[2019-04-11] MEDS: Insulin Lispro 100 UNIT/ML INSULN.PEN 12 UNIT SC (11:10)
[2019-04-11 11:16] LABS: Bedside Glucose 237 mg/dL (70-110)
[2019-04-11 13:56] VITALS: BP 98/58; PULSE 69; RESP 18; TEMP 37.1; O2SAT 95
--- NOTE | 2019-04-11 14:35 | PCM.PN.ID ---
Subjective: Picc in place, no fever, pain controlled. No diarrhea. - Physical Exam General: Alert, Cooperative, No apparent distress Cardiovascular: Regular rate, Regular Rhythm Abdomen: Soft, Non Tender, Non-Distended Skin: No rashes, Ulcer/ Wound - feet wrapped Vital Signs Temp Pulse Resp BP Pulse Ox 98.7 F 69 18 98/58 L 95 04/11/19 13:56 04/11/19 13:56 04/11/19 13:56 04/11/19 13:56 04/11/19 13:56 Oxygen Delivery Method Room Air Weight: 84.368 kg Body Mass Index (BMI) 29.9 Finger Stick Blood Glucose 182 Intake and Output for Last 24 Hours 04/09/19 04/10/19 04/11/19 23:59 23:59 23:59 Intake Total 2432 / 2432 1267 / 1267 350 / 350 Output Total 1000 / 1000 625 / 625 1800 / 1800 Balance 1432 / 1432 642 / 642 -1450 / -1450 Microbiology Past 72 Hours 04/09/19 14:39 Gram Stain - Final Bone - Left Foot Wound Culture - Preliminary No growth-Final to follow Anaerobic Culture - Preliminary No growth in 48 hours. 04/09/19 14:35 Gram Stain - Final Bone - Left Foot Wound Culture - Preliminary No growth-Final to follow Anaerobic Culture - Preliminary No growth in 48 hours. 04/07/19 18:30 Gram Stain - Final Wound - Left Foot Wound Culture - Final Streptococcus agalactiae (B) Staphylococcus aureus Anaerobic Culture - Preliminary Checking for anaerobes, further studies to follow. 04/07/19 15:55 Blood Culture - Preliminary Blood Culture (Wb) - Anticubital Right No growth in 48 hours. 04/07/19 15:30 Blood Culture - Preliminary Blood Culture (Wb) - Anticubital Left No growth in 48 hours. Laboratory Tests Past 24 Hrs 04/11/19 04/11/19 06:17 06:17 WBC 8.2 RBC 3.63 L Hgb 9.4 L Hct 30.1 L MCV 82.9 MCH 25.9 L MCHC 31.2 L RDW 13.9 RDW Differential 40.1 Plt Count 435 MPV 10.2 Immature Gran % (Auto) 1.000 H Neut % (Auto) 56.8 Lymph % (Auto) 32.5 Stanley % (Auto) 6.7 Eos % (Auto) 2.8 Baso % (Auto) 0.2 Absolute Neuts (auto) 4.7 Absolute Lymphs (auto) 2.67 Total Counted Not Reportable Sodium 139 Potassium 3.8 Chloride 103 Carbon Dioxide 27.0 Anion Gap 9 BUN 28 H Creatinine 0.94 Estim Creat Clear Calc 64.79 Est GFR (MDRD) Af Amer 80 Est GFR (MDRD) Non-Af 66 BUN/Creatinine Ratio 29.8 H Glucose 146 H Calcium 8.9 Phosphorus 4.2 Magnesium 1.8 Triglycerides 256 H Cholesterol 182 LDL Cholesterol 98 VLDL Cholesterol 51 H HDL Cholesterol 33 L POC Glucose 04/11/19 04/10/19 04/10/19 11:03 21:09 17:39 POC Glucose 237 H 340 H 332 H Medical Necessity - Tobacco Use Smoking Status: Never smoker Route of nutrition/ use of supplements: [] Nutritional Intake: [] IV Site: [] Tirado Catheter: [] - Assessment/Plan Antibiotics: [] Assessment/Plan: [] L DM foot suspected osteo - recent cx with MSSA and GBS. Cont cefazolin as she has tolerated cephalosporins with no issue in the past. Bone bx pending. Plan on 6 weeks of cefazolin, stop date 05/21/19. Weekly bmp, cbc, and esr while on iv abx. Will follow
[2019-04-11 16:30] LABS: Bedside Glucose 149 mg/dL (70-110)
[2019-04-11 16:40] LABS: Bedside Glucose 142 mg/dL (70-110)
--- NOTE | 2019-04-11 17:06 | TREXTCAR_ITS ---
- Diet 04/09/19 15:12 Diet: Calorie Controlled Is pt able to select menu?: Yes How many daily calories?: 1800 calorie - Routine Orders/Code Status Enema Type: Fleetz Enema Frequency: Daily PRN Suppository Type: Dulcolax 10mg Suppository Frequency: Daily PRN Routine Lab Work: - - CBC, BMP, ESR weekly while on Ancef - please fax the results to Dr. Tello Code Status: Full Code - Wound(s) LEFT FOOT Wound Type: Neuropathic/Diabetic Foot Ulcer right lateral foot intact purple (bruise vs necrosis) Wound Type: Neuropathic/Diabetic Foot Ulcer right outer ankle Wound Type: Neuropathic/Diabetic Foot Ulcer Dressing Change: AntiMicrobial (Aquacel AG, etc) right lower ext Wound Type: scattered scabs left lateral foot Wound Type: Neuropathic/Diabetic Foot Ulcer Dressing Change: applied KCI wound VAC - Therapies Weight Bearing: Non weight bearing Physical Therapy: Eval and Treat Occupational Therapy: Eval and Treat - Problem/Diagnosis (1) Diabetic foot ulcers Status: Acute Comment: BL Current Visit: Yes (2) Obesity (BMI 30.0-34.9) Status: Chronic Current Visit: Yes (3) Normocytic anemia Status: Chronic Current Visit: Yes (4) Ischemic cardiomyopathy Status: Chronic Comment: EF 45% Current Visit: Yes (5) Chronic renal failure Status: Chronic Current Visit: Yes (6) Diabetic polyneuropathy Status: Acute Comment: Stage II?3 Current Visit: Yes (7) Cellulitis of foot, left Status: Acute Comment: cellulitis and abscess of the left foot with possible osteomyelitis Current Visit: No (8) Intractable nausea and vomiting Status: Resolved Current Visit: No (9) Necrotizing soft tissue infection Status: Resolved Current Visit: No (10) Severe sepsis Status: Resolved Current Visit: No (11) Abscess of right lower leg Status: Chronic Comment: diabetic ulcer abscess right lateral malleolus Current Visit: No (12) Acquired varus deformity of left foot Status: Chronic Current Visit: No (13) Acquired varus deformity of right foot Status: Chronic Current Visit: No (14) Anxiety state Status: Chronic Current Visit: No (15) Atherosclerosis of k[place] coronary artery of kake heart without angina pectoris Status: Chronic Comment: Successful PTCA/DARA mid LAD with a 2.25 x 16 Promus Synergy, postdilated throughout with a 2.5 x 8 NC Balloon; 85%-->0%, no dissection and successful PTCA/DARA proximal LAD with a 2.5 x 12 Promus Synergy, post dilated with a 2.5 x 8 NC balloon; 75%-->0%, no dissection on 09/21/2018 @ [facility]. Current Visit: No (16) Back pain, chronic Status: Chronic Current Visit: No (17) Chronic ulcer of left foot with fat layer exposed Status: Chronic Current Visit: No (18) Chronic ulcer of left foot with necrosis of muscle Status: Chronic Current Visit: No (19) Delayed wound healing Status: Chronic Current Visit: No (20) Depression Status: Chronic Current Visit: No (21) Diabetic foot ulcer associated with type 2 diabetes mellitus Status: Chronic Current Visit: No (22) Diabetic ulcer of right ankle Status: Chronic Comment: diabetic ulcer abscess right lateral malleolus Current Visit: No (23) GERD (gastroesophageal reflux disease) Status: Chronic Current Visit: No (24) HLD (hyperlipidemia) Status: Chronic Current Visit: No (25) HTN (hypertension) Status: Chronic Current Visit: No (26) Hemoglobin A1c greater than 9.0% Status: Chronic Comment: 12.2 Current Visit: No (27) Hypomagnesemia Status: Chronic Current Visit: No (28) Malnutrition Status: Resolved Current Visit: No (29) Neuropathic pain Status: Chronic Current Visit: No (30) RLS (restless legs syndrome) Status: Chronic Current Visit: No (31) Stented coronary artery Status: Chronic Comment: Successful PTCA/DARA mid LAD with a 2.25 x 16 Promus Synergy, postdilated throughout with a 2.5 x 8 NC Balloon; 85%-->0%, no dissection and successful PTCA/DARA proximal LAD with a 2.5 x 12 Promus Synergy, post dilated with a 2.5 x 8 NC balloon; 75%-->0%, no dissection on 09/21/2018 @ [facility]. Current Visit: No (32) Type 2 diabetes mellitus with diabetic polyneuropathy Status: Chronic Current Visit: No (33) Type II diabetes mellitus, uncontrolled Status: Chronic Current Visit: No (34) Ulcer of right lower extremity with fat layer exposed Status: Chronic Current Visit: No (35) Chest pain Status: Resolved Current Visit: No (36) NSTEMI (non-ST elevated myocardial infarction) Status: Chronic Current Visit: No (37) Osteomyelitis Status: Suspected Current Visit: No - Allergies/Procedures Done in Hospital Allergies/Adverse Reactions: Allergies Penicillins Allergy (Verified 04/07/19 14:43) Shortness of breath metronidazole Adverse Reaction (Verified 04/07/19 14:43) Nausea OXYCONTIN Allergy (Uncoded 04/07/19 14:43) Shortness of breath Procedures: - - 04/09/2019-debridement of all nonviable and infected soft tissue and bone of the left foot with bone biopsies of the left midfoot and fifth metatarsal on 04/09/[address] Guadarrama - Type of Care/Length of Stay Estimated LOS: Convalescent Care Less Than 30 days Type of Care Needed: Skilled Rehab Potential: Fair Prognosis: Fair - Additional Orders/Day of Discharge H&P will serve as current which was dated: 04/07/19 Day of Discharge: 04/11/19 - Dietary and Speech Recommendations Dietitian Recommendations/Changes: Will add glucerna shake w/ meals for increased nutrition if consumed. Rec continue Ted bid to help w/ skin healing. - Follow Up Care Primary Care Physician: Raúl Eric MD [Primary Care Provider] - Please follow up with your Primary Care Physician in: Following discharge from TCU Please Follow Up With: Wound care center When: Following discharge from TCU - to see Dr. Edgar Please Follow Up With: Jefe Guadarrama DPM When: notify him of patient's admission to TCU
--- NOTE | 2019-04-11 17:18 | DS.PCM_ITS ---
Discharge Date and Diagnosis - Problem List Patient Problems: Active and Suspected Problems (Last Reviewed 04/07/19 @ 18:22 by Kali Prado DO) Diabetic foot ulcers (Acute) BL Diabetic polyneuropathy (Acute) Stage II?3 Date of Admission: 04/07/19 Date of Discharge: 04/11/19 - Primary Discharge Diagnosis Active and Suspected Problems (Last Reviewed 04/07/19 @ 18:22 by Kali Prado DO) Diabetic foot ulcers with cellulitis and abscess and suspected osteomyelitis L foot (Acute) - BL due to methicillin sensitive Staphylococcus aureus and group B strep Uncontrolled DM II with HGBA1C of 12.3 - Secondary Discharge Diagnosis Chronic Problems (Last Reviewed 04/07/19 @ 18:22 by Kali Prado DO) Ulcer of right lower extremity with fat layer exposed (Chronic) -right lateral malleolus Chronic ulcer of left foot with fat layer exposed (Chronic) 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) Acquired varus deformity of left foot (Chronic) Delayed wound healing (Chronic) Type 2 diabetes mellitus with diabetic polyneuropathy (Chronic) Chronic ulcer of left foot with necrosis of muscle (Chronic) Obesity (BMI 30.0-34.9) (Chronic) Normocytic anemia (Chronic) Ischemic cardiomyopathy (Chronic) EF 45% Chronic renal failure (Chronic) stage II - III Stented coronary artery (Chronic) Successful PTCA/DARA mid LAD with a 2.25 x 16 Promus Synergy, postdilated throughout with a 2.5 x 8 NC Balloon; 85%-->0%, no dissection and successful PTCA/DARA proximal LAD with a 2.5 x 12 Promus Synergy, post dilated with a 2.5 x 8 NC balloon; 75%-->0%, no dissection on 09/21/2018 @ [facility]. Atherosclerosis of [place] coronary artery of [place] heart without angina pectoris (Chronic) Successful PTCA/DARA mid LAD with a 2.25 x 16 Promus Synergy, postdilated throughout with a 2.5 x 8 NC Balloon; 85%-->0%, no dissection and successful PTCA/DARA proximal LAD with a 2.5 x 12 Promus Synergy, post dilated with a 2.5 x 8 NC balloon; 75%-->0%, no dissection on 09/21/2018 @ [facility]. right ankle (Chronic) diabetic ulcer abscess right lateral malleolus HTN (hypertension) (Chronic) NSTEMI (non-ST elevated myocardial infarction) (Chronic) HLD (hyperlipidemia) (Chronic) not adequately controlled with an LDL of 98 Neuropathic pain (Chronic) GERD (gastroesophageal reflux disease) (Chronic) Hypomagnesemia (Chronic) Back pain, chronic (Chronic) Depression (Chronic) - not adequately treated Diabetic foot ulcer associated with type 2 diabetes mellitus (Chronic) RLS (restless legs syndrome) (Chronic) Anxiety state (Chronic) non-compliance Hospital Course and Treatment Imaging Results: Clinical Impression(s) from Imaging Studies Foot X-Ray 04/07/19 15:17 IMPRESSION: 1. Stable soft tissue swelling and ulcer of the lateral left foot 2. No alvarado bony destruction. 3. Partial metatarsal amputation. Electronically Signed: Shan Cadet MD at 16:01 EDT , Service support , Ankle X-Ray 04/07/19 21:50 IMPRESSION: Cellulitis, with soft tissue ulceration most significant over the lateral ankle new periosteal reaction distal fibula suspicious for osteomyelitis, this can be further evaluated with MRI of the ankle stable osteoarthrosis Electronically Signed: Kike Burch at 22:30 EDT Tel , Service support , Lower Extremity MRI 04/08/19 08:19 Lower Extremity MRI 04/08/19 10:00 IMPRESSION: Study is limited without intravenous contrast in mildly limited by motion. There are reactive changes seen within the midfoot with arthritic changes also noted at the metatarsophalangeal joint Do not see evidence of osteomyelitis however there is probable cellulitis. There is a small abscess that is noted within the plantar subcutaneous tissue and probably a fistulous tract to the skin surface adjacent to the fifth metatarsal remnant. In addition there are foci of decreased signal within the subcutaneous tissue in the deep musculature of the foot that suggests gas. Correlate clinically at 1505 Reported and signed by: Milli Wyatt DO Electronically Signed: Milli Wyatt DO at 15:03 EDT Tel , Service support , Foot X-Ray 04/09/19 13:00 IMPRESSION: Fluoroscopic guided debridement of the plantar surface of the lateral foot Electronically Signed: Jefe Cesar MD at 16:09 EDT , Service support , Foot X-Ray 04/09/19 17:20 IMPRESSION: Postoperative changes as above. at 2223 Reported and signed by: Juanjo Galloway MD Electronically Signed: Juanjo Galloway, at 22:22 EDT Tel , Service support , Laboratory Results - last 24 hr 04/10/19 04/10/19 04/11/19 17:39 21:09 06:17 WBC 8.2 RBC 3.63 L Hgb 9.4 L Hct 30.1 L MCV 82.9 MCH 25.9 L MCHC 31.2 L RDW 13.9 RDW Differential 40.1 Plt Count 435 MPV 10.2 Immature Gran % (Auto) 1.000 H Neut % (Auto) 56.8 Lymph % (Auto) 32.5 Trigg % (Auto) 6.7 Eos % (Auto) 2.8 Baso % (Auto) 0.2 Absolute Neuts (auto) 4.7 Absolute Lymphs (auto) 2.67 Total Counted Not Reportable Sodium Potassium Chloride Carbon Dioxide Anion Gap BUN Creatinine Estim Creat Clear Calc Est GFR (MDRD) Af Amer Est GFR (MDRD) Non-Af BUN/Creatinine Ratio Glucose Calcium Phosphorus Magnesium Triglycerides Cholesterol LDL Cholesterol VLDL Cholesterol HDL Cholesterol POC Glucose 332 H 340 H 04/11/19 04/11/19 04/11/19 06:17 06:32 11:03 WBC RBC Hgb Hct MCV MCH MCHC RDW RDW Differential Plt Count MPV Immature Gran % (Auto) Neut % (Auto) Lymph % (Auto) Trigg % (Auto) Eos % (Auto) Baso % (Auto) Absolute Neuts (auto) Absolute Lymphs (auto) Total Counted Sodium 139 Potassium 3.8 Chloride 103 Carbon Dioxide 27.0 Anion Gap 9 BUN 28 H Creatinine 0.94 Estim Creat Clear Calc 64.79 Est GFR (MDRD) Af Amer 80 Est GFR (MDRD) Non-Af 66 BUN/Creatinine Ratio 29.8 H Glucose 146 H Calcium 8.9 Phosphorus 4.2 Magnesium 1.8 Triglycerides 256 H Cholesterol 182 LDL Cholesterol 98 VLDL Cholesterol 51 H HDL Cholesterol 33 L POC Glucose 149 H 237 H 04/11/19 16:32 WBC RBC Hgb Hct MCV MCH MCHC RDW RDW Differential Plt Count MPV Immature Gran % (Auto) Neut % (Auto) Lymph % (Auto) Trigg % (Auto) Eos % (Auto) Baso % (Auto) Absolute Neuts (auto) Absolute Lymphs (auto) Total Counted Sodium Potassium Chloride Carbon Dioxide Anion Gap BUN Creatinine Estim Creat Clear Calc Est GFR (MDRD) Af Amer Est GFR (MDRD) Non-Af BUN/Creatinine Ratio Glucose Calcium Phosphorus Magnesium Triglycerides Cholesterol LDL Cholesterol VLDL Cholesterol HDL Cholesterol POC Glucose 142 H Microbiology 04/09/19 14:39 Bone - Left Foot Gram Stain - Final 04/09/19 14:39 Bone - Left Foot Wound Culture - Preliminary No growth-Final to follow 04/09/19 14:39 Bone - Left Foot Anaerobic Culture - Preliminary No growth in 48 hours. 04/09/19 14:35 Bone - Left Foot Gram Stain - Final 04/09/19 14:35 Bone - Left Foot Wound Culture - Preliminary No growth-Final to follow 04/09/19 14:35 Bone - Left Foot Anaerobic Culture - Preliminary No growth in 48 hours. 04/07/19 18:30 Wound - Left Foot Gram Stain - Final 04/07/19 18:30 Wound - Left Foot Wound Culture - Final Streptococcus agalactiae (B) Staphylococcus aureus 04/07/19 18:30 Wound - Left Foot Anaerobic Culture - Preliminary Checking for anaerobes, further studies to follow. 04/07/19 15:55 Blood Culture (Wb) - Anticubital Right Blood Culture - Preliminary No growth in 48 hours. 04/07/19 15:30 Blood Culture (Wb) - Anticubital Left Blood Culture - Preliminary No growth in 48 hours. Consultations 04/07/19 18:27 Consult: Onc/Wound/staffing administrator Routine Comment: Dr. Sachin Guadarrama-podiatry Dr. Kike Tello-infectious disease Operations: - - 04/09/2019-Debridement of all nonviable and infected soft tissue and bone left foot with bone biopsies of the left midfoot and 5th metatarsal Procedures: - - Lower extremity arterial studies. Interpretation Summary Triphasic Doppler waveforms are noted at ankle level bilaterally. Pulse-volume recording waveform amplitudes appear satisfactory at all levels bilaterally, including low-thigh, calf, ankle, and digital levels. Resting ankle-brachial indices are normal bilaterally. Digital-brachial indices are bilaterally normal. There is no evidence of significant arterial occlusive disease in the lower extremities bilaterally. Summary of Care Provided: The patient is a 53-year-old female with a past medical history of uncontrolled diabetes mellitus type 2, diabetic ulcers, diabetic polyneuropathy, coronary artery disease with history of PTCA/DARA to the mid LAD and proximal LAD, restless leg syndrome, chronic anxiety, chronic back pain, GERD, hyper lipidemia obesity and hypertension who was admitted to [facility] with a nonhealing diabetic foot ulcer. A culture taken by podiatry on 04/04/2019 was positive for group B strep as well as MSSA. She was started on vancomycin and consult was obtained with Dr. Guadarrama. MRI showed no evidence of osteomyelitis. There was persistent soft tissue thickening and a tibiotalar effusion. There were neuropathic changes seen in the midfoot vs osteomyelitis. There was a small abscess noted within the plantar subcutaneous tissue and a probable fistulous tract to the skin surface adjacent to the fifth metatarsal remnant. There were foci of decreased signal within the subcutaneous tissue and the deep musculature of the foot that suggested gas. The wound was debrided on 04/08/2019 at the bedside by Dr. Guadarrama. Wound cultures were positive for MSSA and group B strep. Dr. Tello was consulted to manage the antibiotics. She was transitioned to Ancef on 04/10/2019. Lower extremity arterial studies showed no evidence of significant PVD. Insulin was adjusted daily to get the blood sugars better controlled. On 04/09/2019 she was taken to surgery by Dr. Guadarrama who performed debridement of all nonviable and infected soft tissue and bone of the left foot with bone biopsies of the left midfoot and the fifth metatarsal. Pathology and bone cultures are still pending at the time of DC. On 04/11/2019 the patient was afebrile with stable vital signs. She was 95 to 96% saturated on room air. The white blood cell count was 8.2 with an unremarkable differential. Hemoglobin was stable at 9.4 and platelets were within normal limits. BMP was remarkable for a BUN of 28 and the creatinine was 0.94, down from 1.19 at admission. Lipid panel showed an LDL of 98 with an HDL of 33. Triglycerides were elevated at 256. Fasting blood sugar on the morning of discharge was 149 and the blood sugar prior to lunch was 237. Prior to supper her blood sugar was 142. She is quite depressed and has not been caring for herself. She has been trying to take care of her grandson and this has been overwhelming for her. Lexapro was increased to 20 mg p.o. daily. I suspect that she would benefit greatly from psychotherapy. She has been to the [facility] in the past and I recommended she follow-up there for counseling. She was discharged to the transitional care unit on 04/11/2019 and will be on Ancef for 6 weeks with a termination date of 05/21/2019. She should have a weekly CBC, BMP and ESR and these results should be faxed to Dr. Tello weekly. She will follow-up in the wound care center post discharge. She can be seen in TCU by Dr. Guadarrama to follow the wound while she is in long-term. She will follow-up with her primary care physician, Dr. Eric, following discharge from TCU. PHYSICAL EXAM: GENERAL: alert, oriented X 3, Cooperative, NAD, appears overwhelmed and fatigued. She has many somatic complaints ORAL: moist mucosa, no mucosal lesions NECK: No JVD, supple, trachea midline LUNGS: CTA, symmetric chest expansion HEART: RRR, Normal S1 and S2, no rub, no gallop, no murmurs ABDOMEN: soft, NT, ND, BS present, no guarding with palpation EXTREMITIES: no edema, no cyanosis, no calf tenderness, she has had amputation of the fifth digit on both feet. SKIN: No rashes Both feet are dressed and I did not take down the dressings today. NEUROLOGIC: no focal neurologic deficits PSYCH: appropriate, very flat affect This note was generated with [employer] software. It may contain incorrect words, spelling, and punctuation that were not noted in checking the note before signing. Patient Problems: Active and Suspected Problems (Last Reviewed 04/07/19 @ 18:22 by Kali Prado DO) Diabetic foot ulcers (Acute) BL Diabetic polyneuropathy (Acute) Stage II?3 - Physical Exam Vital Signs Temp Pulse Resp BP Pulse Ox 98.7 F 69 18 98/58 L 95 04/11/19 13:56 04/11/19 13:56 04/11/19 13:56 04/11/19 13:56 04/11/19 13:56 Oxygen Delivery Method Room Air Weight: 186 lb Body Mass Index (BMI) 29.9 Finger Stick Blood Glucose 182 Intake and Output for Last 24 Hours 04/09/19 04/10/19 04/11/19 23:59 23:59 23:59 Intake Total 2432 / 2432 1267 / 1267 350 / 350 Output Total 1000 / 1000 625 / 625 1800 / 1800 Balance 1432 / 1432 642 / 642 -1450 / -1450 Microbiology Past 72 Hours 04/09/19 14:39 Gram Stain - Final Bone - Left Foot Wound Culture - Preliminary No growth-Final to follow Anaerobic Culture - Preliminary No growth in 48 hours. 04/09/19 14:35 Gram Stain - Final Bone - Left Foot Wound Culture - Preliminary No growth-Final to follow Anaerobic Culture - Preliminary No growth in 48 hours. 04/07/19 18:30 Gram Stain - Final Wound - Left Foot Wound Culture - Final Streptococcus agalactiae (B) Staphylococcus aureus Anaerobic Culture - Preliminary Checking for anaerobes, further studies to follow. 04/07/19 15:55 Blood Culture - Preliminary Blood Culture (Wb) - Anticubital Right No growth in 48 hours. 04/07/19 15:30 Blood Culture - Preliminary Blood Culture (Wb) - Anticubital Left No growth in 48 hours. Laboratory Tests Past 24 Hrs 04/11/19 04/11/19 06:17 06:17 WBC 8.2 RBC 3.63 L Hgb 9.4 L Hct 30.1 L MCV 82.9 MCH 25.9 L MCHC 31.2 L RDW 13.9 RDW Differential 40.1 Plt Count 435 MPV 10.2 Immature Gran % (Auto) 1.000 H Neut % (Auto) 56.8 Lymph % (Auto) 32.5 Trigg % (Auto) 6.7 Eos % (Auto) 2.8 Baso % (Auto) 0.2 Absolute Neuts (auto) 4.7 Absolute Lymphs (auto) 2.67 Total Counted Not Reportable Sodium 139 Potassium 3.8 Chloride 103 Carbon Dioxide 27.0 Anion Gap 9 BUN 28 H Creatinine 0.94 Estim Creat Clear Calc 64.79 Est GFR (MDRD) Af Amer 80 Est GFR (MDRD) Non-Af 66 BUN/Creatinine Ratio 29.8 H Glucose 146 H Calcium 8.9 Phosphorus 4.2 Magnesium 1.8 Triglycerides 256 H Cholesterol 182 LDL Cholesterol 98 VLDL Cholesterol 51 H HDL Cholesterol 33 L POC Glucose 04/11/19 04/11/19 04/11/19 16:32 11:03 06:32 POC Glucose 142 H 237 H 149 H 04/10/19 04/10/19 21:09 17:39 POC Glucose 340 H 332 H Home Medications: Medications to take at Discharge Ascorbic Acid [Vitamin C] 500 mg PO DAILY 09/20/18 Gabapentin [Neurontin] 900 mg PO TIDCM 09/20/18 Atorvastatin Calcium [Lipitor] 80 mg PO QHS 09/23/18 Lisinopril [Zestril] 5 mg PO DAILY 09/23/18 Metoprolol Tartrate [Lopressor (beta kunal)] 12.5 mg PO BID 09/23/18 escitalopram 10 mg tablet 10 mg PO DAILY 09/28/18 Clopidogrel Bisulfate [Plavix] 75 mg PO DAILY 12/21/18 Metoclopramide [Reglan] 10 mg PO TID PRN #30 tablet 12/29/18 Acetaminophen [Tylenol Tablet] 650 mg PO Q6H PRN PRN 01/04/19 Calcium Carbonate [Tums] 500 mg PO Q4H PRN PRN 04/02/19 Cefazolin 2 gm IV Q8 40 Days #120 vial 04/11/19 Guaifenesin [Mucinex] 1,200 mg PO BID tab 04/11/19 Insulin Glargine [Lantus SoloStar Pen] 30 units SUBCUT QHS pen 04/11/19 Insulin Glargine [Lantus SoloStar Pen] 45 units SUBCUT QAM pen 04/11/19 Insulin Lispro [Humalog KwikPen] 12 unit SUBCUT BREAKFAST insuln.pen 04/11/19 Insulin Lispro [Humalog KwikPen] 15 unit SUBCUT LUNCH insuln.pen 04/11/19 Insulin Lispro [Humalog KwikPen] 18 unit SUBCUT DINNER insuln.pen 04/11/19 Melatonin 3 mg PO QHS PRN PRN tab 04/11/19 Multivitamins,Therapeutic [Multivitamin] 1 tab PO DAILYCM tab 04/11/19 Nutritional Supplement [Ted - ORANGE FLAVOR] 1 packet PO BIDCM packet 04/11/19 Oxycodone [Oxyir] 5 mg PO Q4H PRN PRN 7 Days #30 tab 04/11/19 Pramipexole Di-HCl [Mirapex] 1.5 mg PO BID tab 04/11/19 Zinc Sulfate (50mg elemental) [Zinc Sulfate] 220 mg PO DAILY cap 04/11/19 Following Prescrptions Were Given to Patient: Cefazolin 2 gm IV Q8 40 Days #120 vial Prescription Printed Oxycodone [Oxyir] 5 mg PO Q4H PRN PRN 7 Days #30 tab PRN Reason: Moderate Pain (4-6/10) Prescription Printed Primary Care Physician: Raúl Eric MD [Primary Care Provider] - Please follow up with your Primary Care Physician in: Following discharge from TCU Please Follow Up With: Wound care center When: Following discharge from TCU - to see Dr. Edgar Please Follow Up With: Jefe Guadarrama DPM When: notify him of patient's admission to TCU Disposition: [facility] facility Minutes spent on discharge:: 40 Patient Condition:: Stable Medical Necessity - Tobacco Use Smoking Status: Never smoker Tobacco Use: Non-smoker Meaningful Use Info Meaningful Use Diagnoses (Choose all that apply): None applicable Code Visit Inpatient E&M: 00085 Disch Hosp
[2019-04-11] MEDS: Insulin Lispro 100 UNIT/ML INSULN.PEN 15 UNIT SC (17:47)
--- NOTE | 2019-04-11 17:59 | DCINST_ITS ---
Weight Bearing Status: No weight bearing - No weightbearing left foot Keep extremity elevated above heart level: Left Leg - Keep left foot elevated and offloaded with pillows, keep right lateral ankle ulcer offloaded with pillows Cleanse incision/area with: - - Change dressing left foot with Wound Vac q48-72 hours (3 times a week), settings 125 mmHg continuious. Right ankle ulcer - cleanse ulcer with normal saline solution, apply aquacel Ag with overlying gauze, kerlix and brando dressing - change daily. Allergies/Adverse Reactions: Allergies Penicillins Allergy (Verified 04/07/19 14:43) Shortness of breath metronidazole Adverse Reaction (Verified 04/07/19 14:43) Nausea OXYCONTIN Allergy (Uncoded 04/07/19 14:43) Shortness of breath Medications to take at Discharge Ascorbic Acid [Vitamin C] 500 mg PO DAILY 09/20/18 Gabapentin [Neurontin] 900 mg PO TIDCM 09/20/18 Atorvastatin Calcium [Lipitor] 80 mg PO QHS 09/23/18 Lisinopril [Zestril] 5 mg PO DAILY 09/23/18 Metoprolol Tartrate [Lopressor (beta kunal)] 12.5 mg PO BID 09/23/18 escitalopram 10 mg tablet 10 mg PO DAILY 09/28/18 Clopidogrel Bisulfate [Plavix] 75 mg PO DAILY 12/21/18 Metoclopramide [Reglan] 10 mg PO TID PRN #30 tablet 12/29/18 Acetaminophen [Tylenol Tablet] 650 mg PO Q6H PRN PRN 01/04/19 Calcium Carbonate [Tums] 500 mg PO Q4H PRN PRN 04/02/19 Cefazolin 2 gm IV Q8 40 Days #120 vial 04/11/19 Guaifenesin [Mucinex] 1,200 mg PO BID tab 04/11/19 Insulin Glargine [Lantus SoloStar Pen] 30 units SUBCUT QHS pen 04/11/19 Insulin Glargine [Lantus SoloStar Pen] 45 units SUBCUT QAM pen 04/11/19 Insulin Lispro [Humalog KwikPen] 12 unit SUBCUT BREAKFAST insuln.pen 04/11/19 Insulin Lispro [Humalog KwikPen] 15 unit SUBCUT LUNCH insuln.pen 04/11/19 Insulin Lispro [Humalog KwikPen] 18 unit SUBCUT DINNER insuln.pen 04/11/19 Melatonin 3 mg PO QHS PRN PRN tab 04/11/19 Multivitamins,Therapeutic [Multivitamin] 1 tab PO DAILYCM tab 04/11/19 Nutritional Supplement [Ted - ORANGE FLAVOR] 1 packet PO BIDCM packet 04/11/19 Oxycodone [Oxyir] 5 mg PO Q4H PRN PRN 7 Days #30 tab 04/11/19 Pramipexole Di-HCl [Mirapex] 1.5 mg PO BID tab 04/11/19 Zinc Sulfate (50mg elemental) [Zinc Sulfate] 220 mg PO DAILY cap 04/11/19 The following prescriptions were given: Cefazolin 2 gm IV Q8 40 Days #120 vial Prescription Printed Oxycodone [Oxyir] 5 mg PO Q4H PRN PRN 7 Days #30 tab PRN Reason: Moderate Pain (4-6/10) Prescription Printed Primary Care Physician: Raúl Eric MD [Primary Care Provider] - Please follow up with your Primary Care Physician in: Following discharge from TCU Test Results: Test results from this visit will be discussed in further detail at your follow- up appointment, if applicable. Please Follow Up With: Wound care center When: Following discharge from TCU - to see Dr. Edgar Please Follow Up With: Jefe Guadarrama DPM When: notify him of patient's admission to TCU
--- NOTE | 2019-04-11 19:00 | NURSING ---
Report called to Елена the receiving nurse in TCU.
== END 2019-04-11 19:05 | disposition skilled nursing facility (03) | DRG 623 ==
LOC: ED 16:20 → MS3 17:17
PROVIDERS: Internal Medicine; Podiatrist; Emergency Provider Emergency Medicine; Family Provider Family Medicine; PCP Family Medicine; Visit Provider Internal Medicine
PROC: 0JBR0ZZ Excision of Left Foot Subcutaneous Tissue and Fascia, Open Approach (ICD-10-PCS; principal; 2019-04-09 13:45)
DX: E11.621 Type 2 diabetes mellitus with foot ulcer (principal); L03.116 Cellulitis of left lower limb; L02.612 Cutaneous abscess of left foot; M86.8X7 Other osteomyelitis, ankle and foot; L97.312 Non-pressure chronic ulcer of right ankle with fat layer exposed; E11.65 Type 2 diabetes mellitus with hyperglycemia; E11.42 Type 2 diabetes mellitus with diabetic polyneuropathy; L97.523 Non-pressure chronic ulcer of other part of left foot with necrosis of muscle; E11.69 Type 2 diabetes mellitus with other specified complication; B95.61 Methicillin susceptible Staphylococcus aureus infection as the cause of diseases classified elsewhere; B95.1 Streptococcus, group B, as the cause of diseases classified elsewhere; I25.10 Atherosclerotic heart disease of native coronary artery without angina pectoris; E11.628 Type 2 diabetes mellitus with other skin complications; G25.81 Restless legs syndrome; E78.5 Hyperlipidemia, unspecified; E66.9 Obesity, unspecified; I10 Essential (primary) hypertension; I25.2 Old myocardial infarction; L84 Corns and callosities; E11.622 Type 2 diabetes mellitus with other skin ulcer; Z95.5 Presence of coronary angioplasty implant and graft; Z68.29 Body mass index [BMI] 29.0-29.9, adult; Z89.422 Acquired absence of other left toe(s); Z89.421 Acquired absence of other right toe(s); Z79.4 Long term (current) use of insulin; Z91.19 Patient's noncompliance with other medical treatment and regimen
CPT/HCPCS: 11042; 11043; 36415; 73610; 73630; 73718; 73721; 76000; 80048; 80053; 80061; 80202; 82043; 82570; 82728; 82947; 82962; 83036; 83540; 83550; 83605; 83735; 84100; 85014; 85018; 85025; 85045; 85610; 85652; 85730; 86140; 87015; 87040; 87070; 87075; 87077; 87101; 87102; 87116; 87176; 87186; 87205; 87206; 87640; 88304; 88305; 88307; 88311; 88312; 93923; 97802; 99284; J7030; J7050; A4216; J2405

== ENCOUNTER 2019-04-11 19:20 | Inpatient (IN) | payer MEDICARE, MEDICAID, SELFPAY ==
[2018-09-21 13:23] VITALS: BMI 29.3
[2019-04-09 12:07] VITALS: BMI 29.9
[2019-04-11 19:48] VITALS: BP 138/62; PULSE 76; RESP 20; TEMP 36.6; O2SAT 100
[2019-04-11] MEDS: 0.9% NaCl IVPB Med Flush (250 mL) 15 ML IV (20:50)
[2019-04-11] MEDS: 0.9% NaCl Midline IV Flush IV (20:52)
[2019-04-11 20:58] VITALS: BP 133/64; PULSE 74
[2019-04-11] MEDS: Metoprolol Tartrate 25 MG Tablet 12.5 MG PO (20:58)
[2019-04-11] MEDS: guaiFENesin 1,200 MG Tablet 1200 MG PO (20:59)
[2019-04-11] MEDS: Pramipexole Di-HCl 1 MG Tablet 1.5 MG PO (20:59)
[2019-04-11] MEDS: Atorvastatin Calcium 80 MG Tablet PO (20:59)
[2019-04-11] MEDS: oxyCODONE 5 MG Tablet PO (21:10)
[2019-04-11] MEDS: Cefazolin 2 GM in 0.9% Normal Saline 100 ML IV (21:11)
[2019-04-11 21:19] VITALS: BMI 29.7
--- NOTE | 2019-04-11 21:21 | PCM.HP.STD ---
Problem List (1) Coronary artery disease Status: Chronic (2) Anxiety Status: Chronic (3) Chronic ulcer of left foot with fat layer exposed Status: Chronic (4) Cellulitis of foot, left Status: Acute Comment: cellulitis and abscess of the left foot with possible osteomyelitis (5) Diabetic polyneuropathy Status: Chronic Comment: Stage II?3 (6) HTN (hypertension) Status: Chronic Qualifiers: (7) HLD (hyperlipidemia) Status: Chronic Qualifiers: (8) GERD (gastroesophageal reflux disease) Status: Chronic (9) Hypomagnesemia Status: Chronic (10) Depression Status: Chronic Qualifiers: (11) RLS (restless legs syndrome) Status: Chronic (12) Type II diabetes mellitus, uncontrolled Status: Chronic Qualifiers: History of Present Illness Date of Admission: 04/11/19 Chief Complaint: Here for rehabilitation, strengthening, intravenous antibiotics, wound care, prior to discharge home alone. The patient is a 53 year old Female with below past medical history presented to [facility] Emergency Department 04/07/2019 with left foot wound. 04/07/2019 X-ray left foot showed left lateral foot ulcer welling, partial metatarsal amputation. Diabetic chronic left foot wound, sees Dr. Edgar at wound center, debrided 3 days prior. Culture grew S. Aureus, S. Agalactiae. Wound worse, tissue fell off, patient has been betadine soak to wound. Off loading with walking boot. A1c > 12. WBC okay, Lactic acid okay, glucose 386, X-ray negative osteomyelitis. Vancomycin IV given. 04/07/2019 Admit to Hospital. Vancomycin for Group B beta strep, Methicillin sensitive staph aureus, left foot infection. 04/08/2019 MRI right ankle showed tibiotalar synovitis, negative for osteomyelitis. 04/08/2019 RALPH doppler negative for PAOD. 04/08/2019 MRI left foot negative osteomyelitis. Probable cellulitis, abscess. 04/09/2019 Dr. Amaya recommended continuing IV Vancomycin. 04/09/2019 Dr. Guadarrama performed debridement left foot with bone biopsy. 04/10/2019 Dr. Tello bone biopsy pending, MSSA, GBS, Narrow Vancomycin to Cefazolin. 04/11/2019 Dr. Tello recommended 6 weeks IV Cefazolin for osteomyelitis left foot. 04/11/2019 Admit to TCU with debility, here for rehabilitation, strengthening, intravenous antibiotics, wound care, prior to discharge home alone. Past Medical History Past Medical History (Chronic Problems): Chronic Problems (Last Reviewed 04/07/19 @ 18:22 by Kali Prado DO) Ulcer of right lower extremity with fat layer exposed (Chronic) Chronic ulcer of left foot with fat layer exposed (Chronic) 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) Acquired varus deformity of left foot (Chronic) Delayed wound healing (Chronic) Type 2 diabetes mellitus with diabetic polyneuropathy (Chronic) Chronic ulcer of left foot with necrosis of muscle (Chronic) Obesity (BMI 30.0-34.9) (Chronic) Normocytic anemia (Chronic) Ischemic cardiomyopathy (Chronic) EF 45% Chronic renal failure (Chronic) Diabetic polyneuropathy (Chronic) Stage II?3 Coronary artery disease (Chronic) Anxiety (Chronic) Stented coronary artery (Chronic) Successful PTCA/DARA mid LAD with a 2.25 x 16 Promus Synergy, postdilated throughout with a 2.5 x 8 NC Balloon; 85%-->0%, no dissection and successful PTCA/DARA proximal LAD with a 2.5 x 12 Promus Synergy, post dilated with a 2.5 x 8 NC balloon; 75%-->0%, no dissection on 09/21/2018 @ [facility]. Atherosclerosis of [place] coronary artery of [place] heart without angina pectoris (Chronic) Successful PTCA/DARA mid LAD with a 2.25 x 16 Promus Synergy, postdilated throughout with a 2.5 x 8 NC Balloon; 85%-->0%, no dissection and successful PTCA/DARA proximal LAD with a 2.5 x 12 Promus Synergy, post dilated with a 2.5 x 8 NC balloon; 75%-->0%, no dissection on 09/21/2018 @ [facility]. Hemoglobin A1c greater than 9.0% (Chronic) 12.2 Diabetic ulcer of right ankle (Chronic) diabetic ulcer abscess right lateral malleolus Abscess of right lower leg (Chronic) diabetic ulcer abscess right lateral malleolus HTN (hypertension) (Chronic) NSTEMI (non-ST elevated myocardial infarction) (Chronic) HLD (hyperlipidemia) (Chronic) Neuropathic pain (Chronic) GERD (gastroesophageal reflux disease) (Chronic) Hypomagnesemia (Chronic) Back pain, chronic (Chronic) Depression (Chronic) Diabetic foot ulcer associated with type 2 diabetes mellitus (Chronic) RLS (restless legs syndrome) (Chronic) Type II diabetes mellitus, uncontrolled (Chronic) Anxiety state (Chronic) Medical History: Medical History (Last Reviewed 04/07/19 @ 18:22 by Kali Prado DO) Atherosclerosis of [place] coronary artery of [place] heart without angina pectoris (Chronic) I25.10 Successful PTCA/DARA mid LAD with a 2.25 x 16 Promus Synergy, postdilated throughout with a 2.5 x 8 NC Balloon; 85%-->0%, no dissection and successful PTCA/DARA proximal LAD with a 2.5 x 12 Promus Synergy, post dilated with a 2.5 x 8 NC balloon; 75%-->0%, no dissection on 09/21/2018 @ [facility]. Diabetic ulcer of right ankle (Chronic) E11.622, L97.319 diabetic ulcer abscess right lateral malleolus Abscess of right lower leg (Chronic) L02.415 diabetic ulcer abscess right lateral malleolus Chest pain (Resolved) R07.9 Osteomyelitis (Suspected) M86.9 HTN (hypertension) (Chronic) I10 NSTEMI (non-ST elevated myocardial infarction) (Chronic) I21.4 HLD (hyperlipidemia) (Chronic) E78.5 Neuropathic pain (Chronic) M79.2 GERD (gastroesophageal reflux disease) (Chronic) K21.9 Hypomagnesemia (Chronic) E83.42 Back pain, chronic (Chronic) M54.9, G89.29 Depression (Chronic) F32.9 Diabetic foot ulcer associated with type 2 diabetes mellitus (Chronic) E11.621, L97.509 RLS (restless legs syndrome) (Chronic) Type II diabetes mellitus, uncontrolled (Chronic) E11.65 Anxiety state (Chronic) F41.1 Necrotizing soft tissue infection (Resolved) M79.89 Severe sepsis (Resolved) A41.9, R65.20 Allergies Penicillins Allergy (Verified 04/07/19 14:43) Shortness of breath metronidazole Adverse Reaction (Verified 04/07/19 14:43) Nausea OXYCONTIN Allergy (Uncoded 04/07/19 14:43) Shortness of breath Home Medications: Ambulatory Orders Medication Instructions Recorded Ascorbic Acid [Vitamin C] 500 mg PO DAILY 09/20/18 Gabapentin [Neurontin] 900 mg PO TIDCM 09/20/18 Atorvastatin Calcium [Lipitor] 80 mg PO QHS 09/23/18 Lisinopril [Zestril] 5 mg PO DAILY 09/23/18 Metoprolol Tartrate [Lopressor 12.5 mg PO BID 09/23/18 (beta kunal)] escitalopram 10 mg tablet 20 mg PO DAILY 09/28/18 Clopidogrel Bisulfate [Plavix] 75 mg PO DAILY 12/21/18 Metoclopramide [Reglan] 10 mg PO TID PRN #30 tablet 12/29/18 Acetaminophen [Tylenol Tablet] 650 mg PO Q6H PRN PRN 01/04/19 Calcium Carbonate [Tums] 500 mg PO Q4H PRN PRN 04/02/19 Cefazolin 2 gm IV Q8 04/11/19 Guaifenesin [Mucinex] 1,200 mg PO BID 04/11/19 Insulin Glargine [Lantus SoloStar 30 units SUBCUT QHS 04/11/19 Pen] Insulin Glargine [Lantus SoloStar 45 units SUBCUT QAM 04/11/19 Pen] Insulin Lispro [Humalog KwikPen] 12 unit SUBCUT BREAKFAST 04/11/19 Insulin Lispro [Humalog KwikPen] 15 unit SUBCUT LUNCH 04/11/19 Insulin Lispro [Humalog KwikPen] 18 unit SUBCUT DINNER 04/11/19 Melatonin 3 mg PO QHS PRN PRN tab 04/11/19 Multivitamins,Therapeutic 1 tab PO DAILYCM 04/11/19 [Multivitamin] Nutritional Supplement [Ted - 1 packet PO BIDCM 04/11/19 [place]LAVOR] Oxycodone [Oxyir] 5 mg PO Q4H PRN PRN 7 Days #30 tab 04/11/19 Pramipexole Di-HCl [Mirapex] 1.5 mg PO BID 04/11/19 Zinc Sulfate (50mg elemental) 220 mg PO DAILY 04/11/19 [Zinc Sulfate] Surgical History: Surgical History (Last Reviewed 04/07/19 @ 18:22 by Kali Prado DO) Stented coronary artery (Chronic) Z95.5 Successful PTCA/DARA mid LAD with a 2.25 x 16 Promus Synergy, postdilated throughout with a 2.5 x 8 NC Balloon; 85%-->0%, no dissection and successful PTCA/DARA proximal LAD with a 2.5 x 12 Promus Synergy, post dilated with a 2.5 x 8 NC balloon; 75%-->0%, no dissection on 09/21/2018 @ [facility]. Surgical History: angioplasty - with stent., - - Severel R foot toe amputations and I+Ds, BL carpal tunnel surgery 1994, right shoulder surgery in 1994, section x2, most recently LLE I+D. Psychiatric History: Anxiety, Depression MANAGER OF PROCUREMENT History: No pertinent MANAGER OF PROCUREMENT history Lives: Alone Smoking Status: Never smoker Tobacco Use: Non-smoker Alcohol: None Drugs: None - *Family History Paternal History Items: - - Patient states her father when she was 5 years old, denies known medical history, denies known cardiac history. Maternal History Items: Cancer - Patient had a brother who had testicular cancer; and later cancer in his stomach., Diabetes, Hypertension, - - Her mother at the age of 67 to a blood clot to the brain. She had had multiple strokes preceding that. Patient had 3 brothers who had bypass surgery in their 50s. Sibling History Items: - - She has one brother who is secondary to cancer and she does not know what kind of cancer he had. She also has 3 brothers with a history of cardiovascular disease, stents and coronary artery bypass grafting. Review of Systems Constitutional: Denies: Chills, Fever, Weight Change HEENT: Denies: Head Aches, Sinus Congestion, Sinus Drainage Cardiovascular: Denies: Chest Pain, Palpitations Respiratory: Denies: Cough, Shortness of breath at rest, Sputum production Gastrointestinal: Denies: Abdominal Pain, Nausea, Vomiting Genitourinary: Denies: Dysuria Musculoskeletal: Denies: Joint Pain, Joint Tenderness Skin: Denies: Rash, Wounds Neurological: Denies: Numbness, Tingling, Focal weakness Psychiatric: Denies: Anxiety, Depression, Homicidal Ideations, Suicidal Ideations Hematologic/ Lymphatic: Denies: Easy Bruising, Easy Bleeding VTE Information - Inpt Only VTE Present on Admission: No VTE Mechan Device Prophylaxis: Knee High ROCIO Hose VTE Pharm Prophylaxis ordered?: Yes - Physical Exam General: Alert, Oriented x3, Cooperative HEENT: Atraumatic, PERRLA, EOMI, Normocephalic Neck: Supple, No JVD, Negative Carotid Bruits Lungs: Clear to auscultation, Normal air movement Cardiovascular: Regular rate, No murmurs Abdomen: Bowel Sounds Present, Soft, Non Tender Extremities: No edema, Capillary Refill Less than 3 Seconds, - - Bilateral lower extremities dressed, brando wrapped. Wounds per wound nurse. Skin: No rashes, No breakdown Musculoskeletal: No Tenderness to Palpation of Joints or Extremities Neurological: Cranial nerves II-XII grossly intact Psych/Mental Status: Normal Affect, Appropriate Vital Signs Pulse BP 74 133/64 H 04/11/19 20:58 04/11/19 20:58 Weight: 83.461 kg Body Mass Index (BMI) 29.7 Finger Stick Blood Glucose 182 Assessment/Plan All Active Problems (Last Reviewed 04/07/19 @ 18:22 by Kali Prado DO) Cellulitis of foot, left (Acute) Diabetic foot ulcers (Acute) Chest pain (Resolved) Intractable nausea and vomiting (Resolved) Malnutrition (Resolved) Necrotizing soft tissue infection (Resolved) Severe sepsis (Resolved) 53 year old female with below past medical history hospitalized for left foot osteomyelitis, cultures growing MSSA, GBS, underwent debridement 04/09/[address] Guadarrama, admitted to TCU with debility, here for rehabilitation, strengthening, intravenous antibiotics, wound care, prior to discharge home alone. Debility - PT/OT. Pain - Tylenol 1000MG Q6H PRN mild pain, Oxycodone 5MG Q4H PRN moderate pain. Bowel - Miralax 17GM daily, Senna/colace 1 tablet BID, Dulcolax 10MG HI daily PRN. Pneumonia vaccination - Administer Prevnar 13 and/or Pneumovax 23 as necessary. DVT prophylaxis - Lovenox 40MG SC daily. Vitamin C deficiency - Vitamin C 500MG daily. Hyperlipidemia - Atorvastatin 80MG QHS. GERD - TUMS 500MG Q4H PRN. Left foot osteomyelitis - Cefazolin 2MG IV Q8H thru 05/21/2019, Dr. Tello, Dr. Guadarrama following. Coronary Artery Disease - Metoprolol 12.5MG BID, Lisinopril 5MG daily, Plavix 75MG daily. Depression - Lexapro 20MG daily. Diabetic polyneuropathy - Gabapentin 900MG TIDCM. Congestion - Mucinex 1200MG BID. Diabetes Mellitus II - Lantus 40 units BID, Humalog 26 units TIDAC. Insomnia - Melatonin 3MG QHS PRN. Nausea/vomiting - Reglan 10MG TID PRN. Nutrition - MVI daily, Ted 1 packet BID. Restless Leg syndrome - Mirapex 1.5MG BID. Zinc deficiency - Zinc 220MG daily.
[2019-04-11 21:36] VITALS: BMI 29.7
[2019-04-11 21:41] LABS: Bedside Glucose 170 mg/dL (70-110)
[2019-04-11 21:47] VITALS: PULSE 73; O2SAT 96
--- NOTE | 2019-04-11 22:04 | NURSING ---
Pt arrived from [facility] at 1916 via bed.
--- NOTE | 2019-04-11 22:51 | NURSING ---
Code status discussed with pt. pt wishes to me a full code
[2019-04-12] MEDS: Cefazolin 2 GM in 0.9% Normal Saline 100 ML IV ×3 (06:17→21:19)
[2019-04-12] MEDS: 0.9% NaCl Midline IV Flush IV ×2 (06:18→21:10)
[2019-04-12] MEDS: Glucerna Shake 120 ML LIQUID PO ×4 (06:18→21:15)
[2019-04-12] MEDS: Polyethylene Glycol 3350 17 GM PACKET PO (06:20)
[2019-04-12] MEDS: Lisinopril 5 MG Tablet PO (06:23)
[2019-04-12] MEDS: Pramipexole Di-HCl 1 MG Tablet 1.5 MG PO ×2 (06:23→17:30)
[2019-04-12] MEDS: Ascorbic Acid 500 MG Tablet PO (06:23)
[2019-04-12] MEDS: Escitalopram Oxalate 20 MG Tablet PO (06:23)
[2019-04-12] MEDS: Clopidogrel Bisulfate 75 MG Tablet PO (06:23)
[2019-04-12] MEDS: guaiFENesin 1,200 MG Tablet 1200 MG PO ×2 (06:23→17:33)
[2019-04-12] MEDS: Senna/Docusate Sodium 1 Tablet PO ×2 (06:23→17:30)
[2019-04-12 06:24] VITALS: BP 144/70; PULSE 77
[2019-04-12] MEDS: Metoprolol Tartrate 25 MG Tablet 12.5 MG PO ×2 (06:24→17:30)
[2019-04-12] MEDS: Enoxaparin 40 MG/0.4 ML Syringe SC (06:24)
[2019-04-12 06:46] LABS: Bedside Glucose 254 mg/dL (70-110)
[2019-04-12 07:57] LABS: Absolute Lymphocyte Count 1.74 X10^3/ul (0.83-4.51); Absolute Neutrophil Count 4.5 X10^3/uL (2.0-7.7); Basophil# 0.03 X10^3/uL; Basophil% 0.4 % (0-1); Eosinophil# 0.14 X10^3/uL; Hematocrit 33.7 % (37-47); Hemoglobin 10.5 g/dl (12.0-15.0); Lymphocyte # 1.74 X10^3/ul (4.0); Lymphocyte % 25.4 % (19-41); Mean Corp Hgb Conc 31.2 g/gl (32-36); Mean Corpuscular Hgb 25.9 pg (27.0-32.0); Mean Corpuscular Volume 83.2 fL (81-99); Mean Platelet Vol. 10.2 fl (6.2-12.0); Monocyte# 0.35 X10^3/uL; Monocyte% 5.1 % (0-10); Neutrophil # 4.52 X10^3/uL (2.7-7.7); Neutrophil % 66.2 % (47-70); Platelet Count 475 K/mm3 (150-450); RBC Distribution Width CV 13.9 % (11.6-14.6); RBC Distribution Width SD 40.5 fl (35.1-43.9); Red Blood Count 4.05 M/mm3 (4.2-5.4); White Blood Count 6.8 K/mm3 (4.4-11.0)
[2019-04-12 08:01] LABS: POSITIVE COUNT NO; POSITIVE DIFFERENTIAL NO; POSITIVE MORPHOLOGY NO
[2019-04-12 08:07] LABS: Erythrocyte Sedimentation Rate 43 mm/hr (0-30)
[2019-04-12 08:08] VITALS: O2SAT 99
[2019-04-12 08:23] LABS: Anion Gap 9 (5-15); BUN 24 mg/dL (7-18); BUN/Creat Ratio 22.4 RATIO (10-20); Calcium,Total 9.1 mg/dL (8.5-10.1); Chloride 102 mmol/L (98-107); Creatinine, Serum 1.07 mg/dL (0.55-1.02); EST Glomerular Filtration Rate 57 mL/min (>60); Est Glom Filt Rate - Afr Amer 69 mL/min (>60); Estimated Creatinine Clearance 56.92 ml/min; Glucose 268 mg/dL (74-106); Potassium 4.2 mmol/L (3.5-5.1); Sodium Level 139 mmol/L (136-145)
[2019-04-12] MEDS: Metoclopramide 10 MG Tablet PO ×3 (09:44→21:15)
[2019-04-12 11:10] LABS: Bedside Glucose 267 mg/dL (70-110)
[2019-04-12] MEDS: Gabapentin 300 MG Capsule 900 MG PO ×2 (11:45→17:29)
[2019-04-12] MEDS: Insulin Lispro 100 UNIT/ML INSULN.PEN 15 UNIT SC ×2 (11:49→14:56)
[2019-04-12] MEDS: Tuberculin,Purif.prot.deriv. 50 TU/ML Vial 5 ML ID (11:50)
[2019-04-12] MEDS: oxyCODONE 5 MG Tablet PO ×2 (12:47→23:42)
[2019-04-12 13:01] LABS: Bedside Glucose 476 mg/dL (70-110)
--- NOTE | 2019-04-12 13:41 | NURSING ---
Blood sugar after noon insulin 457, patient c/o feeling off Dr. Hassan notified, new order for x1 dose of humalog 15 units now.
[2019-04-12 14:06] VITALS: BP 120/84; PULSE 88; RESP 18; TEMP 36.8; O2SAT 94
--- NOTE | 2019-04-12 14:50 | PCM.PN.RX ---
<Gómez Hart D - Last Filed: 04/12/19 14:50> Progress Note - Pharmacy Subjective: TCU Admission Objective: Allergies Penicillins Allergy (Verified 04/07/19 14:43) Shortness of breath metronidazole Adverse Reaction (Verified 04/07/19 14:43) Nausea OXYCONTIN Allergy (Uncoded 04/07/19 14:43) Shortness of breath Current Medications Generic Name Dose Route Start Last Admin Trade Name Freq PRN Reason Stop Dose Admin Acetaminophen 1,000 mg 04/11/19 21:48 Tylenol PO Q6H PRN PRN MILD PAIN (-12/17) Ascorbic Acid 500 mg 04/12/19 06:00 04/12/19 06:23 Vitamin C PO 500 mg DAILY TAB Administration Atorvastatin Calcium 80 mg 04/11/19 22:00 04/11/19 20:59 Lipitor PO 80 mg QHS TAB Administration Bisacodyl 10 mg 04/11/19 20:07 Dulcolax RECTAL DAILY PRN CONSTIPATION Calcium Carbonate 500 mg 04/11/19 19:57 Tums PO Q4H PRN PRN reflux Clopidogrel Bisulfate 75 mg 04/12/19 06:00 04/12/19 06:23 Plavix PO 75 mg DAILY TAB Administration Dextrose 0 gm 04/12/19 07:01 D50w Syringe IV X1 PRN Hypoglycemia Protocol Enoxaparin Sodium 40 mg 04/12/19 06:00 04/12/19 06:24 Lovenox SC 40 mg DAILY@0600 TAB Administration Escitalopram Oxalate 20 mg 04/12/19 06:00 04/12/19 06:23 Lexapro PO 20 mg DAILY TAB Administration Gabapentin 900 mg 04/12/19 07:45 04/12/19 11:45 Neurontin PO 900 mg TIDCM TAB Administration Glucagon 1 mg 04/12/19 07:01 IM .X1 PRN Hypoglycemia Guaifenesin 1,200 mg 04/11/19 21:00 04/12/19 06:23 Mucinex PO 1,200 mg BID TAB Administration Cefazolin Sodium 2 gm/ Sodium 110 mls @ 150 mls/hr 04/11/19 22:00 04/12/19 06:17 Chloride IV 05/21/19 22:43 150 mls/hr Q8 TAB Administration Sodium Chloride 250 mls @ 15 mls/hr 04/11/19 20:25 04/11/19 20:50 IV 15 mls/hr .[id number] PRN Administration SALINE FLUSH Insulin Glargine 30 units 04/11/19 22:00 04/11/19 21:44 Lantus ([facility]) SC 30 units QHS TAB Administration Insulin Glargine 45 units 04/12/19 10:00 04/12/19 11:46 Lantus ([facility]) SC 45 units QAM TAB Administration Insulin Human Lispro 12 unit 04/12/19 08:00 04/12/19 10:48 Humalog Kwikpen ([facility]) SC Not Given BREAKFAST TAB Insulin Human Lispro 15 unit 04/12/19 12:00 04/12/19 11:49 Humalog Kwikpen ([facility]) SC 15 units LUNCH TAB Administration Insulin Human Lispro 18 unit 04/12/19 17:00 Humalog Kwikpen ([facility]) SC DINNER TAB Lisinopril 5 mg 04/12/19 06:00 04/12/19 06:23 Zestril PO 5 mg DAILY TAB Administration Melatonin 3 mg 04/11/19 19:58 Melatonin PO QHS PRN PRN INSOMNIA Metoclopramide HCl 10 mg 04/11/19 19:58 04/12/19 09:44 Reglan PO 10 mg TID PRN Administration NAUSEA/VOMITING Metoprolol Tartrate 12.5 mg 04/11/19 21:00 04/12/19 06:24 Lopressor (Beta Tin) PO 12.5 mg BID TAB Administration Multivitamins 1 tablet 04/12/19 08:00 04/12/19 10:49 Multivitamin PO Not Given DAILYCM [facility] Nutritional Formula 1 packet 04/12/19 08:00 04/12/19 10:49 Ted - [place] Flavor PO Not Given BIDCM [facility] Nutritional Formula (Lactose Free) 120 ml 04/12/19 06:00 04/12/19 11:45 Glucerna Shake PO 120 ml 4X/DAY TAB Administration Oxycodone HCl 5 mg 04/11/19 19:58 04/12/19 12:47 Oxyir PO 5 mg Q4H PRN PRN Administration Moderate Pain (4-6/10) Polyethylene Glycol 17 gm 04/12/19 06:00 04/12/19 06:20 Miralax PO 17 gm DAILY TAB Administration Pramipexole Dihydrochloride 1.5 mg 04/11/19 21:00 04/12/19 06:23 Mirapex PO 1.5 mg BID TAB Administration Senna/Docusate Sodium 1 tablet 04/12/19 06:00 04/12/19 06:23 Senokot-S, Natacha-Colace PO 1 tablet BID TAB Administration Sodium Chloride 10 - 40 ml 04/11/19 20:25 04/12/19 06:18 IV 20 ml UD PRN Administration Midline Flush Tuberculin PPD 5 tu 04/19/19 10:00 Tubersol, Aplisol, Ppd ID 04/19/19 10:01 X1 ONE Zinc Sulfate 220 mg 04/12/19 06:00 04/12/19 06:23 Zinc Sulfate PO 220 mg DAILY TAB Administration Problem List (Last Reviewed 04/07/19 @ 18:22 by Kali Prado DO) Coronary artery disease (Chronic) Anxiety (Chronic) Vital Signs Temp Pulse Resp BP Pulse Ox 98.2 F 88 18 120/84 H 94 04/12/19 14:06 04/12/19 14:06 04/12/19 14:06 04/12/19 14:06 04/12/19 14:06 Oxygen Delivery Method Room Air Weight: 83.461 kg Body Mass Index (BMI) 29.7 Finger Stick Blood Glucose 182 Sodium 139 mmol/L (136-145) 04/12/19 07:27 Potassium 4.2 mmol/L (3.5-5.1) 04/12/19 07:27 Chloride 102 mmol/L (98-107) 04/12/19 07:27 Carbon Dioxide 28.0 mmol/L (21.0-32.0) 04/12/19 07:27 9 (5-15) 04/12/19 07:27 BUN 24 mg/dL (7-18) H 04/12/19 07:27 1.07 mg/dL (0.55-1.02) H 04/12/19 07:27 Est GFR (MDRD) Af Amer 69 mL/min (>60) 04/12/19 07:27 Est GFR (MDRD) Non-Af 57 mL/min (>60) L 04/12/19 07:27 22.4 RATIO (10-20) H 04/12/19 07:27 Glucose 268 mg/dL (74-106) H 04/12/19 07:27 Assessment/Plan: 1) Pain APAP for mild pain, oxycodone for moderate pain, gabapentin. Continue to monitor prn medication use, daily pain scores. 2) DM2 Insulin glargine twice daily, lispro with meals, atorvastatin. Continue to monitor BGT, s/s hyper/hypoglycemia, lipids. 3) ID Cefazolin thru 05/21. Continue to monitor s/s infection. 4) GI Metoclopramide prn, Tums prn. Continue to monitor prn medication use, s/s GI distress. 5) Nutrition Ted, Glucerna, C, Zn, multivitamin. Continue to monitor clinically. 6) DVT PPx Enoxaparin daily. Continue to monitor s/s bleeding/clot. 7) RLS Pramipexole. Continue to monitor for restless legs. 8) CAD Metoprolo, lisinopril, clopidogrel. Continue to monitor BP/HR, for chest pain. Psychotropic Medications: 9) Depression Escitalopram daily. Continue to monitor for depression Unnecessary Medications: None Bowel Regimen: 10) Senna/s, PEG, prn bisacodyl. Continue to monitor prn medication use, for constipation/diarrhea. Date of Note:: 04/12/19 - Provider Comments Provider responsibility: Provider responsible to enter orders to implement recommendations <Chauncey Hassan Chi - Last Filed: 04/12/19 18:08> Progress Note - Pharmacy Subjective: [] Objective: Allergies Penicillins Allergy (Verified 04/07/19 14:43) Shortness of breath metronidazole Adverse Reaction (Verified 04/07/19 14:43) Nausea OXYCONTIN Allergy (Uncoded 04/07/19 14:43) Shortness of breath Current Medications Generic Name Dose Route Start Last Admin Trade Name Freq PRN Reason Stop Dose Admin Acetaminophen 1,000 mg 04/11/19 21:48 Tylenol PO Q6H PRN PRN MILD PAIN (1-310) Ascorbic Acid 500 mg 04/12/19 06:00 04/12/19 06:23 Vitamin C PO 500 mg DAILY TAB Administration Atorvastatin Calcium 80 mg 04/11/19 22:00 04/11/19 20:59 Lipitor PO 80 mg QHS TAB Administration Bisacodyl 10 mg 04/11/19 20:07 Dulcolax RECTAL DAILY PRN CONSTIPATION Calcium Carbonate 500 mg 04/11/19 19:57 Tums PO Q4H PRN PRN reflux Clopidogrel Bisulfate 75 mg 04/12/19 06:00 04/12/19 06:23 Plavix PO 75 mg DAILY TAB Administration Dextrose 0 gm 04/12/19 07:01 D50w Syringe IV X1 PRN Hypoglycemia Protocol Enoxaparin Sodium 40 mg 04/12/19 06:00 04/12/19 06:24 Lovenox SC 40 mg DAILY@0600 TAB Administration Escitalopram Oxalate 20 mg 04/12/19 06:00 04/12/19 06:23 Lexapro PO 20 mg DAILY TAB Administration Gabapentin 900 mg 04/12/19 07:45 04/12/19 17:29 Neurontin PO 900 mg TIDCM [facility] Administration Glucagon 1 mg 04/12/19 07:01 IM .X1 PRN Hypoglycemia Guaifenesin 1,200 mg 04/11/19 21:00 04/12/19 17:33 Mucinex PO 1,200 mg BID TAB Administration Cefazolin Sodium 2 gm/ Sodium 110 mls @ 150 mls/hr 04/11/19 22:00 04/12/19 14:57 Chloride IV 05/21/19 22:43 150 mls/hr Q8 TAB Administration Sodium Chloride 250 mls @ 15 mls/hr 04/11/19 20:25 04/11/19 20:50 IV 15 mls/hr .[id number] PRN Administration SALINE FLUSH Insulin Glargine 37 units 04/13/19 06:00 Lantus ([facility]) SC BID [facility] Insulin Human Lispro 25 unit 04/13/19 06:45 Humalog Kwikpen ([facility]) SC TIDAC [facility] Lisinopril 5 mg 04/12/19 06:00 04/12/19 06:23 Zestril PO 5 mg DAILY [facility] Administration Melatonin 3 mg 04/11/19 19:58 Melatonin PO QHS PRN PRN INSOMNIA Metoclopramide HCl 10 mg 04/11/19 19:58 04/12/19 14:57 Reglan PO 10 mg TID PRN Administration NAUSEA/VOMITING Metoprolol Tartrate 12.5 mg 04/11/19 21:00 04/12/19 17:30 Lopressor (Beta Tin) PO 12.5 mg BID TAB Administration Multivitamins 1 tablet 04/12/19 08:00 04/12/19 10:49 Multivitamin PO Not Given DAILYCM [facility] Nutritional Formula 1 packet 04/12/19 08:00 04/12/19 17:30 Ted - [place] Flavor PO 1 packet BIDCM TAB Administration Nutritional Formula (Lactose Free) 120 ml 04/12/19 06:00 04/12/19 17:34 Glucerna Shake PO 120 ml 4X/DAY TAB Administration Oxycodone HCl 5 mg 04/11/19 19:58 04/12/19 12:47 Oxyir PO 5 mg Q4H PRN PRN Administration Moderate Pain (4-6/10) Polyethylene Glycol 17 gm 04/12/19 06:00 04/12/19 06:20 Miralax PO 17 gm DAILY TAB Administration Pramipexole Dihydrochloride 1.5 mg 04/11/19 21:00 04/12/19 17:30 Mirapex PO 1.5 mg BID TAB Administration Senna/Docusate Sodium 1 tablet 04/12/19 06:00 04/12/19 17:30 Senokot-S, Natacha-Colace PO 1 tablet BID TAB Administration Sodium Chloride 10 - 40 ml 04/11/19 20:25 04/12/19 06:18 IV 20 ml UD PRN Administration Midline Flush Tuberculin PPD 5 tu 04/19/19 10:00 Tubersol, Aplisol, Ppd ID 04/19/19 10:01 X1 ONE Zinc Sulfate 220 mg 04/12/19 06:00 04/12/19 06:23 Zinc Sulfate PO 220 mg DAILY TAB Administration Problem List (Last Reviewed 04/07/19 @ 18:22 by Kali Prado DO) Coronary artery disease (Chronic) Anxiety (Chronic) Vital Signs Temp Pulse Resp BP Pulse Ox 98.2 F 88 18 120/84 H 94 04/12/19 14:06 04/12/19 17:30 04/12/19 14:06 04/12/19 17:30 04/12/19 14:06 Oxygen Delivery Method Room Air Weight: 83.461 kg Body Mass Index (BMI) 29.7 Finger Stick Blood Glucose 182 Sodium 139 mmol/L (136-145) 04/12/19 07:27 Potassium 4.2 mmol/L (3.5-5.1) 04/12/19 07:27 Chloride 102 mmol/L (98-107) 04/12/19 07:27 Carbon Dioxide 28.0 mmol/L (21.0-32.0) 04/12/19 07:27 9 (5-15) 04/12/19 07:27 BUN 24 mg/dL (7-18) H 04/12/19 07:27 1.07 mg/dL (0.55-1.02) H 04/12/19 07:27 Est GFR (MDRD) Af Amer 69 mL/min (>60) 04/12/19 07:27 Est GFR (MDRD) Non-Af 57 mL/min (>60) L 04/12/19 07:27 22.4 RATIO (10-20) H 04/12/19 07:27 Glucose 268 mg/dL (74-106) H 04/12/19 07:27 Assessment/Plan: Psychotropic Medications: Unnecessary Medications: Bowel Regimen: - Provider Comments Provider responsibility: Provider responsible to enter orders to implement recommendations Provider Comments to Recommendations by Pharmacy: Agree
[2019-04-12 17:15] LABS: Bedside Glucose 278 mg/dL (70-110)
[2019-04-12 17:30] VITALS: BP 120/84; PULSE 88
[2019-04-12] MEDS: Insulin Lispro 100 UNIT/ML INSULN.PEN 18 UNIT SC (17:33)
[2019-04-12 21:06] LABS: Bedside Glucose 235 mg/dL (70-110)
[2019-04-12] MEDS: 0.9% NaCl IVPB Med Flush (250 mL) 15 ML IV (21:06)
[2019-04-12] MEDS: Atorvastatin Calcium 80 MG Tablet PO (21:15)
[2019-04-12 23:51] LABS: Bedside Glucose 233 mg/dL (70-110)
[2019-04-13] MEDS: oxyCODONE 5 MG Tablet PO ×2 (05:28→16:57)
[2019-04-13] MEDS: Pramipexole Di-HCl 1 MG Tablet 1.5 MG PO ×2 (05:29→16:49)
[2019-04-13] MEDS: Senna/Docusate Sodium 1 Tablet PO ×2 (05:29→16:50)
[2019-04-13] MEDS: guaiFENesin 1,200 MG Tablet 1200 MG PO ×2 (05:29→16:49)
[2019-04-13] MEDS: Escitalopram Oxalate 20 MG Tablet PO (05:29)
[2019-04-13] MEDS: Lisinopril 5 MG Tablet PO (05:30)
[2019-04-13] MEDS: Ascorbic Acid 500 MG Tablet PO (05:30)
[2019-04-13] MEDS: Clopidogrel Bisulfate 75 MG Tablet PO (05:30)
[2019-04-13] MEDS: 0.9% NaCl Midline IV Flush IV ×3 (05:30→23:03)
[2019-04-13] MEDS: Polyethylene Glycol 3350 17 GM PACKET PO (05:30)
[2019-04-13] MEDS: Enoxaparin 40 MG/0.4 ML Syringe SC (05:30)
[2019-04-13] MEDS: Glucerna Shake 120 ML LIQUID PO ×3 (05:31→16:47)
[2019-04-13] MEDS: Cefazolin 2 GM in 0.9% Normal Saline 100 ML IV ×3 (05:31→21:33)
[2019-04-13 05:35] VITALS: BP 142/78; PULSE 75
[2019-04-13] MEDS: Metoprolol Tartrate 25 MG Tablet 12.5 MG PO ×2 (05:35→16:49)
[2019-04-13] MEDS: Metoclopramide 10 MG Tablet PO (05:38)
[2019-04-13 06:26] LABS: Bedside Glucose 306 mg/dL (70-110)
[2019-04-13] MEDS: Acetaminophen 500 MG Tablet 1000 MG PO ×2 (06:59→15:15)
[2019-04-13] MEDS: Gabapentin 300 MG Capsule 900 MG PO ×3 (09:26→16:48)
[2019-04-13] MEDS: Multivitamins,Therapeutic Tablet 1 TABLET PO (09:26)
[2019-04-13] MEDS: Insulin Lispro 100 UNIT/ML INSULN.PEN 26 UNIT SC ×2 (09:28→12:17)
--- NOTE | 2019-04-13 09:30 | PCM.PROGNOTE ---
Subjective: Patient was seen this morning for follow up on left foot, s/p debridement on 04/09/19. Patient resting comfortably in bed with no new complaints. No complaints of fever, chills, nausea or vomiting, chest pain, calf pain. She rates her pain at worse is a 1 out of 10. Her wound VAC is intact on the left foot and her dressing is clean and intact on the right ankle. - Physical Exam General: Alert, Oriented x3, Cooperative HEENT: Atraumatic Extremities: No cyanosis, Capillary Refill Less than 3 Seconds, No Calf Tenderness - Negative Jaswinder and Nuñez sign left, Diminished Peripheral Pulses, Edema - Decreased left foot, Tenderness - No pain with ulcer manipulation or surgical site left foot Skin: Ulcer/ Wound - No purulence, erythema, streaking, odor, infection, necrosis or deep tissue exposure left foot. Peripheral skin is hairless and atrophic. Bone biopsy incision sites are well aligned and coapted with suture in place, - - Dressing to right ankle is clean dry and intact Musculoskeletal: No Tenderness to Palpation of Joints or Extremities, Muscle Wasting, - - Prominent plantar lateral foot and varus attitude of the left lower extremity. Compartments soft to palpate left lower extremity. Active range of motion digits 1, 2, 3, 4 left Neurological: - - Lack of normal epicritic sensation light touch consistent with neuropathy left lower extremity Psych/Mental Status: Normal Affect, Appropriate Vital Signs Temp Pulse Resp BP Pulse Ox 98.2 F 75 18 142/78 H 94 04/12/19 14:06 04/13/19 05:35 04/12/19 14:06 04/13/19 05:35 04/12/19 14:06 Oxygen Delivery Method Room Air Weight: 83.461 kg Body Mass Index (BMI) 29.7 Finger Stick Blood Glucose 182 Intake and Output for Last 24 Hours 04/11/19 04/12/19 04/13/19 23:59 23:59 23:59 Intake Total 150 / 150 1246 / 1246 395 / 395 Balance 150 / 150 1246 / 1246 395 / 395 POC Glucose 04/13/19 04/12/19 04/12/19 06:10 23:46 21:00 POC Glucose 306 H 233 H 235 H 04/12/19 04/12/19 04/12/19 17:05 12:55 10:51 POC Glucose 278 H 476 H* 267 H Medical Necessity - Tobacco Use Smoking Status: Never smoker Tobacco Use: Non-smoker Assessment/Plan All Active Problems (Last Reviewed 04/07/19 @ 18:22 by Kali Prado DO) Cellulitis of foot, left (Acute) Diabetic foot ulcers (Acute) Chest pain (Resolved) Intractable nausea and vomiting (Resolved) Malnutrition (Resolved) Necrotizing soft tissue infection (Resolved) Severe sepsis (Resolved) Deep ulceration lateral left foot w/ abscess and concerning for osteomyelitis s/p debridement and bone biopsies; now POD #3 Cellulitis left foot resolved Left foot deformity, 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 Reviewed diagnostic data, no leukocytosis, patient remains afebrile. ESR and CRP elevated consistent with infection and trend will be rechecked for tomorrow the final result is still pending and they are without bacterial growth so far.. s/p debridement and bone biopsies on 04/09/19. Ordered wound vac for left foot, continue with aquacel Ag dressing changes right ankle ulcer. ID has been consulted. To continue antibiotics as advised. She appears to be responding clinically well. Patient needs to be nonweightbearing left foot. Keep ulcerations offloaded at all times. She was advised to wear her ankle-foot orthotic on the right lower extremity to reduce tension at this ulcer site and to avoid laying directly on the site while in bed. Again, patient is at high risk for ultimate limb loss due to foot condition and overall patient's health status, along with her non-adherence. Reviewed importance of proper nutrition and blood sugar control to optimize foot health. Ted nutritional supplementation has been ordered for daily use to optimize healing. Diabetes, DVT prophylaxis, and medical management per medicine team. I will continue to follow her closely while in-house. Please not hesitate call if you have any questions. Lavern Edgar DPM, [facility] [phone]
[2019-04-13 11:06] LABS: Bedside Glucose 364 mg/dL (70-110)
--- NOTE | 2019-04-13 11:07 | NURSING ---
wound photo: left foot
--- NOTE | 2019-04-13 11:08 | NURSING ---
wound photo: left foot
--- NOTE | 2019-04-13 11:08 | NURSING ---
wound photo: right lateral ankle
[2019-04-13 15:29] VITALS: BP 153/72; PULSE 84; RESP 16; TEMP 36.8; O2SAT 93
[2019-04-13 16:49] VITALS: PULSE 84
[2019-04-13 17:06] LABS: Bedside Glucose 111 mg/dL (70-110)
[2019-04-13] MEDS: Atorvastatin Calcium 80 MG Tablet PO (21:34)
[2019-04-13 21:35] LABS: Bedside Glucose 193 mg/dL (70-110)
[2019-04-14] MEDS: 0.9% NaCl Midline IV Flush IV ×4 (05:22→21:30)
[2019-04-14 05:33] VITALS: BP 136/75; PULSE 64
[2019-04-14] MEDS: Metoprolol Tartrate 25 MG Tablet 12.5 MG PO ×2 (05:33→17:28)
[2019-04-14] MEDS: Escitalopram Oxalate 20 MG Tablet PO (05:33)
[2019-04-14] MEDS: Lisinopril 5 MG Tablet PO (05:33)
[2019-04-14] MEDS: Ascorbic Acid 500 MG Tablet PO (05:33)
[2019-04-14] MEDS: Clopidogrel Bisulfate 75 MG Tablet PO (05:33)
[2019-04-14] MEDS: guaiFENesin 1,200 MG Tablet 1200 MG PO ×2 (05:33→17:29)
[2019-04-14] MEDS: Pramipexole Di-HCl 1 MG Tablet 1.5 MG PO ×2 (05:33→17:28)
[2019-04-14] MEDS: Enoxaparin 40 MG/0.4 ML Syringe SC (05:35)
[2019-04-14] MEDS: oxyCODONE 5 MG Tablet PO ×2 (06:18→17:27)
[2019-04-14] MEDS: Cefazolin 2 GM in 0.9% Normal Saline 100 ML IV ×3 (06:18→21:36)
[2019-04-14] MEDS: 0.9% NaCl IVPB Med Flush (250 mL) 15 ML IV ×2 (06:19→21:35)
[2019-04-14] MEDS: Metoclopramide 10 MG Tablet PO ×2 (06:27→21:31)
[2019-04-14 06:51] LABS: Bedside Glucose 209 mg/dL (70-110)
[2019-04-14] MEDS: Insulin Lispro 100 UNIT/ML INSULN.PEN 22 UNIT SC ×3 (07:55→17:34)
[2019-04-14] MEDS: Multivitamins,Therapeutic Tablet 1 TABLET PO (07:55)
[2019-04-14] MEDS: Gabapentin 300 MG Capsule 900 MG PO ×3 (07:55→17:27)
[2019-04-14 07:58] LABS: CRP 7.88 mg/L (0.0-3.0)
[2019-04-14 11:06] LABS: Bedside Glucose 240 mg/dL (70-110)
[2019-04-14] MEDS: Glucerna Shake 120 ML LIQUID PO ×3 (11:48→21:33)
[2019-04-14 14:57] VITALS: BP 126/61; PULSE 75; RESP 18; TEMP 36.8; O2SAT 100
[2019-04-14 16:41] LABS: Bedside Glucose 147 mg/dL (70-110)
[2019-04-14] MEDS: Senna/Docusate Sodium 1 Tablet PO (17:27)
[2019-04-14 17:28] VITALS: BP 126/61; PULSE 75
[2019-04-14 21:20] LABS: Bedside Glucose 96 mg/dL (70-110)
[2019-04-14] MEDS: Atorvastatin Calcium 80 MG Tablet PO (21:33)
[2019-04-15] MEDS: oxyCODONE 5 MG Tablet PO ×3 (03:55→23:28)
[2019-04-15] MEDS: Cefazolin 2 GM in 0.9% Normal Saline 100 ML IV ×3 (05:54→21:18)
[2019-04-15 05:55] VITALS: BP 138/63; PULSE 75
[2019-04-15] MEDS: Metoprolol Tartrate 25 MG Tablet 12.5 MG PO ×2 (05:55→16:54)
[2019-04-15] MEDS: Escitalopram Oxalate 20 MG Tablet PO (05:55)
[2019-04-15] MEDS: Acetaminophen 500 MG Tablet 1000 MG PO (05:55)
[2019-04-15] MEDS: Metoclopramide 10 MG Tablet PO ×2 (05:55→22:30)
[2019-04-15] MEDS: Senna/Docusate Sodium 1 Tablet PO ×2 (05:56→16:53)
[2019-04-15] MEDS: Clopidogrel Bisulfate 75 MG Tablet PO (05:56)
[2019-04-15] MEDS: guaiFENesin 1,200 MG Tablet 1200 MG PO ×2 (05:56→16:54)
[2019-04-15] MEDS: Lisinopril 5 MG Tablet PO (05:57)
[2019-04-15] MEDS: Ascorbic Acid 500 MG Tablet PO (05:57)
[2019-04-15] MEDS: Pramipexole Di-HCl 1 MG Tablet 1.5 MG PO ×2 (05:57→16:53)
[2019-04-15] MEDS: Glucerna Shake 120 ML LIQUID PO ×3 (05:58→16:50)
[2019-04-15] MEDS: Enoxaparin 40 MG/0.4 ML Syringe SC (05:59)
[2019-04-15] MEDS: 0.9% NaCl Midline IV Flush IV ×4 (06:00→21:20)
[2019-04-15 06:11] LABS: Bedside Glucose 239 mg/dL (70-110)
[2019-04-15] MEDS: Multivitamins,Therapeutic Tablet 1 TABLET PO (08:07)
[2019-04-15] MEDS: Gabapentin 300 MG Capsule 900 MG PO ×3 (08:07→16:53)
[2019-04-15] MEDS: Insulin Lispro 100 UNIT/ML INSULN.PEN 22 UNIT SC ×2 (08:08→11:27)
[2019-04-15 10:56] LABS: Bedside Glucose 269 mg/dL (70-110)
[2019-04-15 15:47] VITALS: BP 140/67; PULSE 76; RESP 17; TEMP 36.3; O2SAT 98
[2019-04-15 16:54] VITALS: BP 140/67; PULSE 76
[2019-04-15 17:01] LABS: Bedside Glucose 72 mg/dL (70-110)
[2019-04-15 18:15] LABS: Bedside Glucose 132 mg/dL (70-110)
[2019-04-15] MEDS: Atorvastatin Calcium 80 MG Tablet PO (21:18)
[2019-04-15] MEDS: MELATONIN 3 MG TABLET PO (21:19)
[2019-04-15] MEDS: 0.9% NaCl IVPB Med Flush (250 mL) 15 ML IV (21:22)
[2019-04-15 21:26] LABS: Bedside Glucose 167 mg/dL (70-110)
[2019-04-16] MEDS: Polyethylene Glycol 3350 17 GM PACKET PO (06:25)
[2019-04-16] MEDS: guaiFENesin 1,200 MG Tablet 1200 MG PO ×2 (06:25→18:02)
[2019-04-16] MEDS: Escitalopram Oxalate 20 MG Tablet PO (06:25)
[2019-04-16] MEDS: Senna/Docusate Sodium 1 Tablet PO ×2 (06:25→18:03)
[2019-04-16] MEDS: Ascorbic Acid 500 MG Tablet PO (06:25)
[2019-04-16] MEDS: Enoxaparin 40 MG/0.4 ML Syringe SC (06:25)
[2019-04-16] MEDS: Pramipexole Di-HCl 1 MG Tablet 1.5 MG PO ×2 (06:25→18:02)
[2019-04-16] MEDS: Clopidogrel Bisulfate 75 MG Tablet PO (06:25)
[2019-04-16] MEDS: Lisinopril 5 MG Tablet PO (06:25)
[2019-04-16 06:26] VITALS: BP 135/79; PULSE 85
[2019-04-16] MEDS: Cefazolin 2 GM in 0.9% Normal Saline 100 ML IV ×3 (06:26→21:02)
[2019-04-16] MEDS: Metoprolol Tartrate 25 MG Tablet 12.5 MG PO ×2 (06:26→18:02)
[2019-04-16] MEDS: Glucerna Shake 120 ML LIQUID PO ×4 (06:26→21:00)
[2019-04-16] MEDS: 0.9% NaCl Midline IV Flush IV ×3 (06:28→21:19)
[2019-04-16 06:41] LABS: Bedside Glucose 169 mg/dL (70-110)
[2019-04-16] MEDS: Insulin Lispro 100 UNIT/ML INSULN.PEN 16 UNIT SC ×3 (08:08→18:06)
[2019-04-16] MEDS: Gabapentin 300 MG Capsule 900 MG PO ×3 (08:08→18:00)
[2019-04-16] MEDS: Multivitamins,Therapeutic Tablet 1 TABLET PO (08:08)
[2019-04-16 11:11] LABS: Bedside Glucose 197 mg/dL (70-110)
[2019-04-16] MEDS: oxyCODONE 5 MG Tablet PO ×2 (14:38→21:00)
[2019-04-16] MEDS: Acetaminophen 500 MG Tablet 1000 MG PO (14:39)
--- NOTE | 2019-04-16 15:17 | NURSING ---
wound photo: right lateral ankle
--- NOTE | 2019-04-16 15:18 | NURSING ---
wound photo: left foot
--- NOTE | 2019-04-16 15:19 | NURSING ---
wound photo: left foot
[2019-04-16 16:00] VITALS: BP 155/75; PULSE 81; RESP 17; TEMP 36.5; O2SAT 97
[2019-04-16 17:06] LABS: Bedside Glucose 186 mg/dL (70-110)
[2019-04-16 18:02] VITALS: BP 155/75; PULSE 81
[2019-04-16] MEDS: Atorvastatin Calcium 80 MG Tablet PO (21:00)
[2019-04-16] MEDS: 0.9% NaCl IVPB Med Flush (250 mL) 15 ML IV (21:03)
[2019-04-16] MEDS: Metoclopramide 10 MG Tablet PO (21:14)
[2019-04-16 21:36] LABS: Bedside Glucose 174 mg/dL (70-110)
[2019-04-16] MEDS: MELATONIN 3 MG TABLET PO (22:52)
[2019-04-17] MEDS: Acetaminophen 500 MG Tablet 1000 MG PO ×2 (01:12→21:53)
[2019-04-17] MEDS: oxyCODONE 5 MG Tablet PO ×2 (01:12→10:59)
[2019-04-17] MEDS: Cefazolin 2 GM in 0.9% Normal Saline 100 ML IV ×3 (06:26→21:54)
[2019-04-17] MEDS: 0.9% NaCl Midline IV Flush IV ×3 (06:27→21:55)
[2019-04-17 06:36] LABS: Bedside Glucose 222 mg/dL (70-110)
[2019-04-17] MEDS: Glucerna Shake 120 ML LIQUID PO ×4 (08:49→21:53)
[2019-04-17] MEDS: Insulin Lispro 100 UNIT/ML INSULN.PEN 16 UNIT SC ×3 (08:49→17:38)
[2019-04-17] MEDS: Escitalopram Oxalate 20 MG Tablet PO (08:50)
[2019-04-17] MEDS: Pramipexole Di-HCl 1 MG Tablet 1.5 MG PO ×2 (08:50→17:36)
[2019-04-17] MEDS: Ascorbic Acid 500 MG Tablet PO (08:50)
[2019-04-17] MEDS: Clopidogrel Bisulfate 75 MG Tablet PO (08:50)
[2019-04-17] MEDS: Lisinopril 5 MG Tablet PO (08:50)
[2019-04-17] MEDS: Enoxaparin 40 MG/0.4 ML Syringe SC (08:50)
[2019-04-17 08:51] VITALS: PULSE 68
[2019-04-17] MEDS: Senna/Docusate Sodium 1 Tablet PO ×2 (08:51→17:40)
[2019-04-17] MEDS: Polyethylene Glycol 3350 17 GM PACKET PO (08:51)
[2019-04-17] MEDS: guaiFENesin 1,200 MG Tablet 1200 MG PO ×2 (08:51→17:40)
[2019-04-17] MEDS: Metoprolol Tartrate 25 MG Tablet 12.5 MG PO ×2 (08:51→17:36)
[2019-04-17] MEDS: Multivitamins,Therapeutic Tablet 1 TABLET PO (08:52)
[2019-04-17] MEDS: Gabapentin 300 MG Capsule 900 MG PO ×3 (08:52→17:35)
[2019-04-17 11:35] LABS: Bedside Glucose 169 mg/dL (70-110)
--- NOTE | 2019-04-17 15:06 | NURSING ---
IV cefazolin infused, went to flush midline and noticed leaking around dressing, pt shirt damp. Noted with flushing that oozes around insertion site. Tigist RN also in to assess, will notify Dr. Hassan and access service representative.
--- NOTE | 2019-04-17 15:34 | NURSING ---
it operations specialist notified of midline needing replaced, they will call with ETA.
[2019-04-17 15:39] VITALS: BP 123/73; PULSE 77; RESP 16; TEMP 37.4; O2SAT 95
[2019-04-17 16:55] LABS: Bedside Glucose 168 mg/dL (70-110)
[2019-04-17 17:36] VITALS: BP 123/73; PULSE 77
[2019-04-17 21:35] LABS: Bedside Glucose 105 mg/dL (70-110)
[2019-04-17] MEDS: Metoclopramide 10 MG Tablet PO (21:53)
[2019-04-17] MEDS: Atorvastatin Calcium 80 MG Tablet PO (21:53)
[2019-04-17] MEDS: 0.9% NaCl IVPB Med Flush (250 mL) 15 ML IV (21:54)
[2019-04-18] MEDS: oxyCODONE 5 MG Tablet PO ×5 (02:13→22:54)
[2019-04-18] MEDS: Senna/Docusate Sodium 1 Tablet PO ×2 (06:09→16:55)
[2019-04-18] MEDS: Polyethylene Glycol 3350 17 GM PACKET PO (06:09)
[2019-04-18] MEDS: Acetaminophen 500 MG Tablet 1000 MG PO ×2 (06:09→22:54)
[2019-04-18] MEDS: Escitalopram Oxalate 20 MG Tablet PO (06:09)
[2019-04-18] MEDS: Pramipexole Di-HCl 1 MG Tablet 1.5 MG PO ×2 (06:10→16:55)
[2019-04-18] MEDS: Lisinopril 5 MG Tablet PO (06:10)
[2019-04-18] MEDS: guaiFENesin 1,200 MG Tablet 1200 MG PO ×2 (06:10→16:55)
[2019-04-18] MEDS: Clopidogrel Bisulfate 75 MG Tablet PO (06:10)
[2019-04-18] MEDS: Ascorbic Acid 500 MG Tablet PO (06:10)
[2019-04-18 06:11] VITALS: BP 158/77; PULSE 78
[2019-04-18] MEDS: Glucerna Shake 120 ML LIQUID PO ×4 (06:11→21:44)
[2019-04-18] MEDS: Metoprolol Tartrate 25 MG Tablet 12.5 MG PO ×2 (06:11→16:55)
[2019-04-18] MEDS: Enoxaparin 40 MG/0.4 ML Syringe SC (06:12)
[2019-04-18] MEDS: 0.9% NaCl Midline IV Flush IV ×4 (06:13→21:40)
[2019-04-18] MEDS: Cefazolin 2 GM in 0.9% Normal Saline 100 ML IV ×3 (06:13→21:41)
[2019-04-18 06:30] LABS: Bedside Glucose 191 mg/dL (70-110)
--- NOTE | 2019-04-18 08:06 | NURSING ---
Dr Edgar into see pt this AM. Per Dr Edgar N.N.O., drsg changed to RLE.
--- NOTE | 2019-04-18 08:10 | PN_ITS ---
Subjective: Patient was seen this morning for follow up on left foot, s/p debridement on 04/09/19. Patient resting comfortably in bed with no new complaints. No complaints of fever, chills, nausea or vomiting, chest pain, calf pain. She denies pain. Her wound VAC is intact on the left foot and her dressing is clean and intact on the right ankle. - Physical Exam General: Alert, Oriented x3, Cooperative Extremities: No cyanosis, Capillary Refill Less than 3 Seconds, No Calf Tenderness - Negative Jaswinder and Nuñez sign bilateral. Varus attitude bilateral lower extremities at foot and ankle level, Diminished Peripheral Pulses, Edema - Bilateral lower extremities is mild Skin: Ulcer/ Wound - Right lateral ankle ulcer pre-debridement measurement is 2.0 x 1.6 x 0.1 cm and post debridement is 2.2 x 1.8 x 0.1 cm and the base is pale granular and healthy. The left foot bone biopsy sites are well approximated with nylon suture in place and the plantar ulceration pre- debridement measures 3.9 x 5.3 x 0.2 cm and post debridement is 4.0 x 5.5 x 0.2 cm. The base is granular and there is minimal moist maceration peripherally. There is no erythema, streaking, odor, infection, deep tissue exposure, eschar or necrosis to bilateral lower extremity. The peripheral skin is hairless and atrophic bilateral Musculoskeletal: No Tenderness to Palpation of Joints or Extremities, Muscle Wasting, - - No pain on palpation bilateral lower extremities. Compartments are soft to palpate bilateral lower extremities Neurological: - - Lack of normal epicritic sensation light touch consistent with neuropathy status bilateral lower extremities Psych/Mental Status: Normal Affect, Appropriate Vital Signs Temp Pulse Resp BP Pulse Ox 99.4 F H 78 16 158/77 H 95 04/17/19 15:39 04/18/19 06:11 04/17/19 15:39 04/18/19 06:11 04/17/19 15:39 Oxygen Delivery Method Room Air Weight: 83.461 kg Body Mass Index (BMI) 29.7 Finger Stick Blood Glucose 182 Intake and Output for Last 24 Hours 04/16/19 04/17/19 04/18/19 23:59 23:59 23:59 Intake Total 1726 / 1726 1280 / 1280 395 / 395 Balance 1726 / 1726 1280 / 1280 395 / 395 POC Glucose 04/18/19 04/17/19 04/17/19 06:14 21:32 16:48 POC Glucose 191 H 105 168 H 04/17/19 11:16 POC Glucose 169 H Medical Necessity - Tobacco Use Smoking Status: Never smoker Tobacco Use: Non-smoker Assessment/Plan All Active Problems (Last Reviewed 04/07/19 @ 18:22 by Kali Prado DO) Cellulitis of foot, left (Acute) Diabetic foot ulcers (Acute) Chest pain (Resolved) Intractable nausea and vomiting (Resolved) Malnutrition (Resolved) Necrotizing soft tissue infection (Resolved) Severe sepsis (Resolved) Deep ulceration lateral left foot w/ abscess and concerning for osteomyelitis s/p debridement and bone biopsies Cellulitis left foot resolved Left foot deformity, 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 Reviewed diagnostic data, no leukocytosis. Her vitals remained stable. She does have a low-grade fever of 99.4 and this is not symptomatic. Repeat labs will be ordered including CBC, ESR, and CRP. S/p debridement and bone biopsies on 04/09/19 were reviewed with no bacterial growth noted on the microbiology report. Infectious disease consultation. She continues on cefazolin at this time. Clinically she is improving to bilateral lower extremity ulcer sites. Patient needs to be nonweightbearing left foot. Keep ulcerations offloaded at all times. She was advised to wear her ankle-foot orthotic on the right lower extremity to reduce tension at this ulcer site and to avoid laying directly on the site while in bed. Subcutaneous excisional debridement was performed with medical instrumentation of the 15 blade scalpel to excise devitalized subcutaneous, fibrous, biofilm, slough tissue. She tolerated this well after verbal consent was obtained. Pressure was applied to maintain hemostasis. She did not have pain secondary to neuropathy. A dressing consisting of Aquacel Ag and gauze was applied to the r ight lower extremity. A dry gauze dressing was applied to the left lower extremity. Additionally, a wound VAC placed on continuous 125 and 150 mmHg will be applied later today. This patient is at high risk for ultimate limb loss due to foot condition and overall patient's health status, along with her non-adherence. Reviewed importance of proper nutrition and blood sugar control to optimize foot health. Ted nutritional supplementation has been ordered for daily use to optimize healing. Diabetes, DVT prophylaxis, and medical management per medicine team. I will continue to follow her closely while in-house on a weekly basis. Please not hesitate call if you have any questions. Lavern Edgar DPM, [facility] [phone]
[2019-04-18] MEDS: Multivitamins,Therapeutic Tablet 1 TABLET PO (08:26)
[2019-04-18] MEDS: Insulin Lispro 100 UNIT/ML INSULN.PEN 13 UNIT SC ×3 (08:26→17:16)
[2019-04-18] MEDS: Gabapentin 300 MG Capsule 900 MG PO ×3 (08:26→16:55)
--- NOTE | 2019-04-18 08:35 | NURSING ---
Dr Edgar here to change dressings to RT ankle and Lt foot, Tiffany wound nurse reapplied wound vac to LT foot as ordered.
--- NOTE | 2019-04-18 09:29 | CASEMGMT ---
Social Work IDT met with pt for care plan meeting. Discussed progressing well in therapy - adlib in the room and hallways per therapy. Continuing to work outside on uneven surfaces and back and arm strengthening. Potentially discharging from therapy in the next or two. Pt will remain skilled for nursing until wound vac DC'd and IV ATB stop 05/21. Tentative DC date 05/22. Provided info for pill dispenser upon admission to assist with better compliance at home. Report Developer meeting with pt to assist with better compliance of pt as well. Will continue to follow for DC planning. Martha Barahona, CARDIAC EXERCISE SPECIALIST PRODUCT EVANGELIST
[2019-04-18 11:15] LABS: Bedside Glucose 142 mg/dL (70-110)
[2019-04-18] MEDS: Metoclopramide 10 MG Tablet PO ×2 (12:35→21:44)
[2019-04-18] MEDS: 0.9% NaCl IVPB Med Flush (250 mL) 15 ML IV ×2 (12:35→21:37)
[2019-04-18 15:52] VITALS: BP 140/76; PULSE 80; RESP 18; TEMP 36.8; O2SAT 96
[2019-04-18 16:55] VITALS: PULSE 80
[2019-04-18 17:00] LABS: Bedside Glucose 277 mg/dL (70-110)
[2019-04-18 21:31] LABS: Bedside Glucose 342 mg/dL (70-110)
[2019-04-18 21:31] LABS: Bedside Glucose 352 mg/dL (70-110)
[2019-04-18] MEDS: Atorvastatin Calcium 80 MG Tablet PO (21:43)
[2019-04-19] MEDS: Lisinopril 5 MG Tablet PO (05:39)
[2019-04-19] MEDS: Ascorbic Acid 500 MG Tablet PO (05:39)
[2019-04-19] MEDS: Clopidogrel Bisulfate 75 MG Tablet PO (05:39)
[2019-04-19] MEDS: Metoclopramide 10 MG Tablet PO ×3 (05:39→20:55)
[2019-04-19] MEDS: Senna/Docusate Sodium 1 Tablet PO ×2 (05:39→20:41)
[2019-04-19] MEDS: Pramipexole Di-HCl 1 MG Tablet 1.5 MG PO ×2 (05:39→20:41)
[2019-04-19] MEDS: Glucerna Shake 120 ML LIQUID PO ×2 (05:40→12:23)
[2019-04-19] MEDS: guaiFENesin 1,200 MG Tablet 1200 MG PO ×2 (05:40→20:40)
[2019-04-19] MEDS: Polyethylene Glycol 3350 17 GM PACKET PO (05:40)
[2019-04-19] MEDS: Enoxaparin 40 MG/0.4 ML Syringe SC (05:40)
[2019-04-19] MEDS: 0.9% NaCl Midline IV Flush IV ×3 (05:40→20:58)
[2019-04-19] MEDS: Escitalopram Oxalate 20 MG Tablet PO (05:40)
[2019-04-19 05:41] VITALS: BP 126/63; PULSE 69
[2019-04-19] MEDS: Metoprolol Tartrate 25 MG Tablet 12.5 MG PO ×2 (05:41→20:41)
[2019-04-19] MEDS: oxyCODONE 5 MG Tablet PO ×3 (05:46→20:56)
[2019-04-19] MEDS: Cefazolin 2 GM in 0.9% Normal Saline 100 ML IV ×3 (05:48→21:03)
[2019-04-19 05:49] LABS: Absolute Neutrophil Count 4.9 X10^3/uL (2.0-7.7); Basophil# 0.04 X10^3/uL; Basophil% 0.5 % (0-1); Eosinophil# 0.16 X10^3/uL; Eosinophils% 2.1 % (0-5); Hematocrit 31.4 % (37-47); Hemoglobin 9.5 g/dl (12.0-15.0); Lymphocyte % 25.3 % (19-41); Mean Corp Hgb Conc 30.3 g/gl (32-36); Mean Corpuscular Hgb 25.5 pg (27.0-32.0); Mean Corpuscular Volume 84.2 fL (81-99); Mean Platelet Vol. 10.2 fl (6.2-12.0); Monocyte# 0.51 X10^3/uL; Monocyte% 6.8 % (0-10); Neutrophil # 4.89 X10^3/uL (2.7-7.7); Platelet Count 377 K/mm3 (150-450); RBC Distribution Width CV 14.6 % (11.6-14.6); RBC Distribution Width SD 42.2 fl (35.1-43.9); Red Blood Count 3.73 M/mm3 (4.2-5.4); White Blood Count 7.5 K/mm3 (4.4-11.0)
[2019-04-19 06:07] LABS: Anion Gap 7 (5-15); BUN 35 mg/dL (7-18); BUN/Creat Ratio 40.3 RATIO (10-20); Chloride 107 mmol/L (98-107); Creatinine, Serum 0.87 mg/dL (0.55-1.02); EST Glomerular Filtration Rate 72 mL/min (>60); Est Glom Filt Rate - Afr Amer 87 mL/min (>60); Estimated Creatinine Clearance 70.01 ml/min; Glucose 189 mg/dL (74-106); Potassium 4.6 mmol/L (3.5-5.1); Sodium Level 140 mmol/L (136-145)
[2019-04-19 06:12] LABS: Erythrocyte Sedimentation Rate 127 mm/hr (0-30)
[2019-04-19 06:15] LABS: POSITIVE COUNT NO; POSITIVE DIFFERENTIAL NO; POSITIVE MORPHOLOGY NO
[2019-04-19 06:23] LABS: CRP < 2.90 mg/L (0.0-3.0)
[2019-04-19 06:45] LABS: Bedside Glucose 182 mg/dL (70-110)
[2019-04-19] MEDS: Insulin Lispro 100 UNIT/ML INSULN.PEN 13 UNIT SC ×2 (08:57→12:25)
[2019-04-19] MEDS: Multivitamins,Therapeutic Tablet 1 TABLET PO (08:57)
[2019-04-19] MEDS: Gabapentin 300 MG Capsule 900 MG PO ×3 (08:57→20:39)
[2019-04-19 10:40] LABS: Bedside Glucose 250 mg/dL (70-110)
[2019-04-19] MEDS: Tuberculin,Purif.prot.deriv. 50 TU/ML Vial 5 ML ID (12:23)
[2019-04-19 20:30] VITALS: BP 133/71; PULSE 91; RESP 16; TEMP 36.6; O2SAT 99
[2019-04-19 20:41] VITALS: BP 133/71; PULSE 91
[2019-04-19] MEDS: Atorvastatin Calcium 80 MG Tablet PO (20:43)
[2019-04-19] MEDS: Acetaminophen 500 MG Tablet 1000 MG PO (20:56)
[2019-04-19] MEDS: 0.9% NaCl IVPB Med Flush (250 mL) 15 ML IV (20:56)
[2019-04-19 21:15] LABS: Bedside Glucose 362 mg/dL (70-110)
[2019-04-20] MEDS: Pramipexole Di-HCl 1 MG Tablet 1.5 MG PO ×2 (05:56→17:05)
[2019-04-20] MEDS: 0.9% NaCl Midline IV Flush IV ×3 (05:56→22:22)
[2019-04-20] MEDS: Polyethylene Glycol 3350 17 GM PACKET PO (05:57)
[2019-04-20] MEDS: Cefazolin 2 GM in 0.9% Normal Saline 100 ML IV ×3 (05:59→22:22)
[2019-04-20] MEDS: Glucerna Shake 120 ML LIQUID PO ×4 (06:00→21:54)
[2019-04-20 06:01] VITALS: BP 128/73; PULSE 77
[2019-04-20] MEDS: guaiFENesin 1,200 MG Tablet 1200 MG PO ×2 (06:01→17:03)
[2019-04-20] MEDS: Escitalopram Oxalate 20 MG Tablet PO (06:01)
[2019-04-20] MEDS: Ascorbic Acid 500 MG Tablet PO (06:01)
[2019-04-20] MEDS: Clopidogrel Bisulfate 75 MG Tablet PO (06:01)
[2019-04-20] MEDS: Metoclopramide 10 MG Tablet PO ×3 (06:01→21:51)
[2019-04-20] MEDS: Lisinopril 5 MG Tablet PO (06:01)
[2019-04-20] MEDS: Senna/Docusate Sodium 1 Tablet PO (06:01)
[2019-04-20] MEDS: Metoprolol Tartrate 25 MG Tablet 12.5 MG PO ×2 (06:01→17:03)
[2019-04-20] MEDS: Enoxaparin 40 MG/0.4 ML Syringe SC (06:01)
[2019-04-20] MEDS: oxyCODONE 5 MG Tablet PO ×4 (06:15→21:50)
[2019-04-20 06:41] LABS: Bedside Glucose 227 mg/dL (70-110)
[2019-04-20] MEDS: Insulin Lispro 100 UNIT/ML INSULN.PEN 13 UNIT SC ×3 (07:58→18:01)
[2019-04-20] MEDS: Multivitamins,Therapeutic Tablet 1 TABLET PO (07:58)
[2019-04-20] MEDS: Gabapentin 300 MG Capsule 900 MG PO ×3 (07:58→17:03)
[2019-04-20 11:30] LABS: Bedside Glucose 257 mg/dL (70-110)
[2019-04-20] MEDS: Acetaminophen 500 MG Tablet 1000 MG PO (12:30)
[2019-04-20 16:00] VITALS: BP 130/65; PULSE 78; RESP 16; TEMP 37.1; O2SAT 97
[2019-04-20 17:03] VITALS: BP 130/65; PULSE 78
[2019-04-20 17:20] LABS: Bedside Glucose 175 mg/dL (70-110)
[2019-04-20 21:41] LABS: Bedside Glucose 222 mg/dL (70-110)
[2019-04-20] MEDS: Atorvastatin Calcium 80 MG Tablet PO (21:52)
[2019-04-20] MEDS: 0.9% NaCl IVPB Med Flush (250 mL) 15 ML IV (22:22)
[2019-04-21] MEDS: oxyCODONE 5 MG Tablet PO ×4 (02:04→22:23)
[2019-04-21] MEDS: Glucerna Shake 120 ML LIQUID PO ×4 (05:58→22:24)
[2019-04-21] MEDS: Cefazolin 2 GM in 0.9% Normal Saline 100 ML IV ×3 (05:58→22:24)
[2019-04-21 05:59] VITALS: BP 155/80; PULSE 81
[2019-04-21] MEDS: Pramipexole Di-HCl 1 MG Tablet 1.5 MG PO ×2 (05:59→17:11)
[2019-04-21] MEDS: Metoprolol Tartrate 25 MG Tablet 12.5 MG PO ×2 (05:59→17:12)
[2019-04-21] MEDS: guaiFENesin 1,200 MG Tablet 1200 MG PO ×2 (05:59→17:11)
[2019-04-21] MEDS: Metoclopramide 10 MG Tablet PO ×3 (05:59→22:30)
[2019-04-21] MEDS: Clopidogrel Bisulfate 75 MG Tablet PO (06:00)
[2019-04-21] MEDS: Ascorbic Acid 500 MG Tablet PO (06:00)
[2019-04-21] MEDS: Lisinopril 5 MG Tablet PO (06:00)
[2019-04-21] MEDS: Enoxaparin 40 MG/0.4 ML Syringe SC (06:01)
[2019-04-21] MEDS: Escitalopram Oxalate 20 MG Tablet PO (06:01)
[2019-04-21] MEDS: 0.9% NaCl Midline IV Flush IV ×2 (06:03→22:34)
[2019-04-21 06:36] LABS: Bedside Glucose 322 mg/dL (70-110)
[2019-04-21] MEDS: Gabapentin 300 MG Capsule 900 MG PO ×3 (07:57→17:12)
[2019-04-21] MEDS: Multivitamins,Therapeutic Tablet 1 TABLET PO (07:57)
[2019-04-21] MEDS: Insulin Lispro 100 UNIT/ML INSULN.PEN 13 UNIT SC (07:58)
[2019-04-21 11:40] LABS: Bedside Glucose 240 mg/dL (70-110)
[2019-04-21] MEDS: Insulin Lispro 100 UNIT/ML INSULN.PEN 17 UNIT SC ×2 (12:10→17:14)
[2019-04-21] MEDS: Calcium Carbonate 500 MG Tablet PO (12:18)
[2019-04-21 16:00] VITALS: BP 134/76; PULSE 72; RESP 15; TEMP 36.6; O2SAT 97
[2019-04-21 16:51] LABS: Bedside Glucose 209 mg/dL (70-110)
[2019-04-21] MEDS: Acetaminophen 500 MG Tablet 1000 MG PO (17:08)
[2019-04-21 17:12] VITALS: BP 134/76; PULSE 72
[2019-04-21 21:21] LABS: Bedside Glucose 181 mg/dL (70-110)
[2019-04-21] MEDS: 0.9% NaCl IVPB Med Flush (250 mL) 15 ML IV (22:24)
[2019-04-21] MEDS: Atorvastatin Calcium 80 MG Tablet PO (22:30)
[2019-04-22] MEDS: oxyCODONE 5 MG Tablet PO ×4 (02:43→20:40)
[2019-04-22] MEDS: Glucerna Shake 120 ML LIQUID PO ×4 (06:36→20:39)
[2019-04-22] MEDS: Cefazolin 2 GM in 0.9% Normal Saline 100 ML IV ×3 (06:36→21:58)
[2019-04-22] MEDS: Clopidogrel Bisulfate 75 MG Tablet PO (06:37)
[2019-04-22] MEDS: Metoclopramide 10 MG Tablet PO ×3 (06:37→20:40)
[2019-04-22] MEDS: guaiFENesin 1,200 MG Tablet 1200 MG PO ×2 (06:37→17:03)
[2019-04-22] MEDS: Pramipexole Di-HCl 1 MG Tablet 1.5 MG PO ×2 (06:37→17:03)
[2019-04-22] MEDS: Senna/Docusate Sodium 1 Tablet PO (06:37)
[2019-04-22] MEDS: Ascorbic Acid 500 MG Tablet PO (06:38)
[2019-04-22] MEDS: Lisinopril 5 MG Tablet PO (06:38)
[2019-04-22] MEDS: Enoxaparin 40 MG/0.4 ML Syringe SC (06:38)
[2019-04-22 06:39] VITALS: BP 134/74; PULSE 73
[2019-04-22] MEDS: Metoprolol Tartrate 25 MG Tablet 12.5 MG PO ×2 (06:39→17:02)
[2019-04-22] MEDS: Escitalopram Oxalate 20 MG Tablet PO (06:39)
[2019-04-22 06:40] LABS: Bedside Glucose 263 mg/dL (70-110)
[2019-04-22] MEDS: 0.9% NaCl Midline IV Flush IV ×2 (06:45→22:04)
[2019-04-22] MEDS: Insulin Lispro 100 UNIT/ML INSULN.PEN 17 UNIT SC ×3 (07:41→17:05)
[2019-04-22] MEDS: Gabapentin 300 MG Capsule 900 MG PO ×3 (07:41→17:03)
[2019-04-22] MEDS: Multivitamins,Therapeutic Tablet 1 TABLET PO (07:41)
[2019-04-22 11:55] LABS: Bedside Glucose 158 mg/dL (70-110)
[2019-04-22] MEDS: Acetaminophen 500 MG Tablet 1000 MG PO (14:31)
[2019-04-22 15:42] VITALS: BP 112/56; PULSE 80; RESP 20; TEMP 36.8; O2SAT 96
[2019-04-22 17:02] VITALS: BP 112/56; PULSE 80
[2019-04-22 17:36] LABS: Bedside Glucose 171 mg/dL (70-110)
[2019-04-22] MEDS: Atorvastatin Calcium 80 MG Tablet PO (20:39)
[2019-04-22 21:11] LABS: Bedside Glucose 168 mg/dL (70-110)
[2019-04-22] MEDS: 0.9% NaCl IVPB Med Flush (250 mL) 15 ML IV (21:57)
[2019-04-23] MEDS: Glucerna Shake 120 ML LIQUID PO ×3 (05:16→17:35)
[2019-04-23] MEDS: oxyCODONE 5 MG Tablet PO ×2 (05:16→13:38)
[2019-04-23] MEDS: Lisinopril 5 MG Tablet PO (05:17)
[2019-04-23] MEDS: Senna/Docusate Sodium 1 Tablet PO ×2 (05:17→17:35)
[2019-04-23] MEDS: Escitalopram Oxalate 20 MG Tablet PO (05:17)
[2019-04-23] MEDS: Metoclopramide 10 MG Tablet PO ×3 (05:17→21:23)
[2019-04-23] MEDS: Pramipexole Di-HCl 1 MG Tablet 1.5 MG PO ×2 (05:17→17:34)
[2019-04-23 05:18] VITALS: BP 145/77; PULSE 80
[2019-04-23] MEDS: Enoxaparin 40 MG/0.4 ML Syringe SC (05:18)
[2019-04-23] MEDS: Metoprolol Tartrate 25 MG Tablet 12.5 MG PO ×2 (05:18→17:35)
[2019-04-23] MEDS: Clopidogrel Bisulfate 75 MG Tablet PO (05:18)
[2019-04-23] MEDS: Ascorbic Acid 500 MG Tablet PO (05:23)
[2019-04-23] MEDS: 0.9% NaCl Midline IV Flush IV ×2 (05:23→21:27)
[2019-04-23] MEDS: Cefazolin 2 GM in 0.9% Normal Saline 100 ML IV ×3 (05:23→21:26)
[2019-04-23] MEDS: guaiFENesin 1,200 MG Tablet 1200 MG PO ×2 (05:28→17:35)
[2019-04-23 06:26] LABS: Bedside Glucose 287 mg/dL (70-110)
--- NOTE | 2019-04-23 09:01 | NURSING ---
Patient may go on ALEX of 05/05/19 for family reunion.
[2019-04-23] MEDS: Multivitamins,Therapeutic Tablet 1 TABLET PO (09:03)
[2019-04-23] MEDS: Insulin Lispro 100 UNIT/ML INSULN.PEN 17 UNIT SC ×3 (09:03→17:34)
[2019-04-23] MEDS: Gabapentin 300 MG Capsule 900 MG PO ×3 (09:03→17:35)
[2019-04-23 11:11] LABS: Bedside Glucose 272 mg/dL (70-110)
--- NOTE | 2019-04-23 13:12 | MDS.RN ---
Information for the mds was obtained from review of the clinical record, interview of resident, staff, and direct observation of resident's care.
--- NOTE | 2019-04-23 13:17 | PCM.PN.ID ---
Subjective: Feeling ok, no fever, no n/v/d. - Physical Exam General: Alert, Cooperative, No apparent distress Lungs: Clear to auscultation, Normal air movement Cardiovascular: Regular rate, Regular Rhythm Abdomen: Soft, Non Tender, Non-Distended Skin: Ulcer/ Wound - reviewed photos Vital Signs Temp Pulse Resp BP Pulse Ox 98.3 F 80 20 H 145/77 H 96 04/22/19 15:42 04/23/19 05:18 04/22/19 15:42 04/23/19 05:18 04/22/19 15:42 Oxygen Delivery Method Room Air Weight: 83.461 kg Body Mass Index (BMI) 29.7 Finger Stick Blood Glucose 182 Intake and Output for Last 24 Hours 04/21/19 04/22/19 04/23/19 23:59 23:59 23:59 Intake Total 980 / 980 720 / 720 600 / 600 Balance 980 / 980 720 / 720 600 / 600 POC Glucose 04/23/19 04/23/19 04/22/19 10:47 06:03 21:06 POC Glucose 272 H 287 H 168 H 04/22/19 17:05 POC Glucose 171 H Medical Necessity - Tobacco Use Smoking Status: Never smoker Tobacco Use: Non-smoker Route of nutrition/ use of supplements: [] Nutritional Intake: [] IV Site: [] Tirado Catheter: [] - Assessment/Plan Antibiotics: [] Assessment/Plan: [] L DM foot suspected osteo - recent cx with MSSA and GBS. Cont cefazolin as she has tolerated cephalosporins with no issue in the past. Bone bx neg. Plan on 6 weeks of cefazolin, stop date 05/21/19. Weekly bmp, cbc, and esr while on iv abx. Will follow
--- NOTE | 2019-04-23 14:53 | NURSING ---
wound photo: left foot
--- NOTE | 2019-04-23 14:53 | NURSING ---
wound photo: left foot
--- NOTE | 2019-04-23 14:54 | NURSING ---
wound photo: right lateral ankle
[2019-04-23 15:19] VITALS: BP 146/77; PULSE 81; RESP 16; TEMP 36.8; O2SAT 96
[2019-04-23 17:11] LABS: Bedside Glucose 96 mg/dL (70-110)
[2019-04-23 17:35] VITALS: BP 146/77; PULSE 81
[2019-04-23] MEDS: Atorvastatin Calcium 80 MG Tablet PO (21:23)
[2019-04-23 21:26] LABS: Bedside Glucose 215 mg/dL (70-110)
[2019-04-24] MEDS: oxyCODONE 5 MG Tablet PO ×3 (00:52→21:19)
[2019-04-24] MEDS: Polyethylene Glycol 3350 17 GM PACKET PO (06:15)
[2019-04-24] MEDS: 0.9% NaCl Midline IV Flush IV ×3 (06:16→21:21)
[2019-04-24] MEDS: Cefazolin 2 GM in 0.9% Normal Saline 100 ML IV ×3 (06:22→21:26)
[2019-04-24 06:23] VITALS: BP 154/83; PULSE 81
[2019-04-24] MEDS: Lisinopril 5 MG Tablet PO (06:23)
[2019-04-24] MEDS: guaiFENesin 1,200 MG Tablet 1200 MG PO ×2 (06:23→17:57)
[2019-04-24] MEDS: Clopidogrel Bisulfate 75 MG Tablet PO (06:23)
[2019-04-24] MEDS: Pramipexole Di-HCl 1 MG Tablet 1.5 MG PO ×2 (06:23→17:57)
[2019-04-24] MEDS: Metoclopramide 10 MG Tablet PO ×3 (06:23→21:34)
[2019-04-24] MEDS: Ascorbic Acid 500 MG Tablet PO (06:23)
[2019-04-24] MEDS: Escitalopram Oxalate 20 MG Tablet PO (06:23)
[2019-04-24] MEDS: Metoprolol Tartrate 25 MG Tablet 12.5 MG PO ×2 (06:23→17:57)
[2019-04-24] MEDS: Senna/Docusate Sodium 1 Tablet PO ×2 (06:23→17:57)
[2019-04-24] MEDS: Glucerna Shake 120 ML LIQUID PO ×4 (06:26→21:24)
[2019-04-24] MEDS: Enoxaparin 40 MG/0.4 ML Syringe SC (06:27)
[2019-04-24 06:41] LABS: Bedside Glucose 275 mg/dL (70-110)
[2019-04-24] MEDS: Multivitamins,Therapeutic Tablet 1 TABLET PO (08:26)
[2019-04-24] MEDS: Insulin Lispro 100 UNIT/ML INSULN.PEN 17 UNIT SC ×3 (08:26→18:00)
[2019-04-24] MEDS: Gabapentin 300 MG Capsule 900 MG PO ×3 (08:26→17:55)
--- NOTE | 2019-04-24 09:07 | NURSING ---
dr castellon updated on pt requesting cream for shoulder pain, new order for sarna cream to bilat shoulders.
--- NOTE | 2019-04-24 10:43 | CASEMGMT ---
Social Work Upon completing MDS assessment with pt, pt disclosed increased depression, racing thoughts at night and feeling alone/failure. Pt accepted verbal and emotional support. Spoke with pt at length about the emotions she was feeling, how to process those, interventions that may assist, and f/u with counseling upon discharge. Pt tearful during visit and appreciative support. Encouraged pt to seek out this SW during stay for continued support. Pt agreed to physician reviewing sleep and depression medications. Left message for physician. Will continue to follow pt for further support. MARTIN AlmodovarW
[2019-04-24 11:10] LABS: Bedside Glucose 136 mg/dL (70-110)
[2019-04-24 16:00] VITALS: BP 145/79; PULSE 84; RESP 18; TEMP 37; O2SAT 96
[2019-04-24 16:56] LABS: Bedside Glucose 273 mg/dL (70-110)
[2019-04-24 17:57] VITALS: PULSE 84
[2019-04-24 21:21] LABS: Bedside Glucose 247 mg/dL (70-110)
[2019-04-24] MEDS: 0.9% NaCl IVPB Med Flush (250 mL) 15 ML IV (21:24)
[2019-04-24] MEDS: Atorvastatin Calcium 80 MG Tablet PO (21:34)
[2019-04-24] MEDS: Paroxetine 20 MG Tablet PO (21:34)
[2019-04-24] MEDS: MELATONIN 10 MG TABLET PO (21:34)
[2019-04-25] MEDS: oxyCODONE 5 MG Tablet PO ×4 (02:10→21:22)
[2019-04-25] MEDS: Lisinopril 5 MG Tablet PO (04:35)
[2019-04-25] MEDS: guaiFENesin 1,200 MG Tablet 1200 MG PO ×2 (04:35→17:54)
[2019-04-25] MEDS: Acetaminophen 500 MG Tablet 1000 MG PO (04:35)
[2019-04-25] MEDS: Ascorbic Acid 500 MG Tablet PO (04:35)
[2019-04-25] MEDS: Polyethylene Glycol 3350 17 GM PACKET PO (04:35)
[2019-04-25 04:36] VITALS: BP 127/54; PULSE 84
[2019-04-25] MEDS: Pramipexole Di-HCl 1 MG Tablet 1.5 MG PO ×2 (04:36→17:54)
[2019-04-25] MEDS: Clopidogrel Bisulfate 75 MG Tablet PO (04:36)
[2019-04-25] MEDS: Metoclopramide 10 MG Tablet PO ×3 (04:36→21:32)
[2019-04-25] MEDS: Senna/Docusate Sodium 1 Tablet PO ×2 (04:36→17:54)
[2019-04-25] MEDS: Metoprolol Tartrate 25 MG Tablet 12.5 MG PO ×2 (04:36→17:54)
[2019-04-25] MEDS: Glucerna Shake 120 ML LIQUID PO ×4 (04:37→21:22)
[2019-04-25] MEDS: Enoxaparin 40 MG/0.4 ML Syringe SC (04:38)
[2019-04-25] MEDS: 0.9% NaCl Midline IV Flush IV ×3 (04:38→21:31)
[2019-04-25] MEDS: Cefazolin 2 GM in 0.9% Normal Saline 100 ML IV ×3 (06:17→21:26)
[2019-04-25 06:41] LABS: Bedside Glucose 290 mg/dL (70-110)
[2019-04-25] MEDS: Gabapentin 300 MG Capsule 900 MG PO ×3 (09:12→17:53)
[2019-04-25] MEDS: Multivitamins,Therapeutic Tablet 1 TABLET PO (09:12)
[2019-04-25] MEDS: Insulin Lispro 100 UNIT/ML INSULN.PEN 17 UNIT SC ×2 (09:12→12:11)
[2019-04-25 12:01] LABS: Bedside Glucose 147 mg/dL (70-110)
--- NOTE | 2019-04-25 12:36 | PCM.PROGNOTE ---
Subjective: Patient was seen this morning for follow up on left foot, s/p debridement on 04/09/[address] Guadarrama. Patient resting comfortably in bed with no new complaints. She continues to deny pain. Her wound VAC is intact on the left foot and her dressing is clean and intact on the right ankle. No strikethrough noted. No complaints of fever, chills, nausea or vomiting, chest pain, calf pain. - Physical Exam General: Alert, Oriented x3, Cooperative, No apparent distress Extremities: No cyanosis, Capillary Refill Less than 3 Seconds, No Calf Tenderness - Negative Jaswinder and Nuñez signs bilateral, Diminished Peripheral Pulses, Edema - Mild bilateral lower extremity edema Skin: Ulcer/ Wound - Right lateral ankle ulcer pre-debridement measurement is 1.8 x 1.4 x 0.1 cm and post debridement is 2.0 x 1.6 x 0.1 cm and the base is pale granular and healthy. The left foot bone biopsy sites are well approximated with nylon suture in place. There is a small distal dehiscence to the lateral incision site measuring approximately 1.5 cm x 1 cm. No signs of infection surrounding this area. The plantar ulceration pre-debridement measures 3.4 x 5.0 x 0.2 cm and post debridement is 3.7 x 5.2 x 0.2 cm. The base is granular and there is minimal moist maceration peripherally. There is no cellulitis, streaking, odor, infection, deep tissue exposure, eschar or necrosis to bilateral lower extremity. The peripheral skin is hairless and atrophic bilateral Musculoskeletal: No Tenderness to Palpation of Joints or Extremities Neurological: - - Lack of epicritic sensation to the lower extremities bilateral Psych/Mental Status: Normal Affect, Appropriate Vital Signs Temp Pulse Resp BP Pulse Ox 98.6 F 84 18 127/54 H 96 04/24/19 16:00 04/25/19 04:36 04/24/19 16:00 04/25/19 04:36 04/24/19 16:00 Oxygen Delivery Method Room Air Weight: 88.932 kg Body Mass Index (BMI) 29.7 Finger Stick Blood Glucose 182 Intake and Output for Last 24 Hours 04/23/19 04/24/19 04/25/19 23:59 23:59 23:59 Intake Total 2354 / 2354 1070 / 1070 940 / 940 Balance 2354 / 2354 1070 / 1070 940 / 940 POC Glucose 04/25/19 04/25/19 04/24/19 11:10 06:21 21:10 POC Glucose 147 H 290 H 247 H 04/24/19 16:47 POC Glucose 273 H Medical Necessity - Tobacco Use Smoking Status: Never smoker Tobacco Use: Non-smoker Assessment/Plan All Active Problems (Last Reviewed 04/07/19 @ 18:22 by Kali Prado DO) Cellulitis of foot, left (Acute) Diabetic foot ulcers (Acute) Chest pain (Resolved) Intractable nausea and vomiting (Resolved) Malnutrition (Resolved) Necrotizing soft tissue infection (Resolved) Severe sepsis (Resolved) Deep ulceration lateral left foot w/ abscess and concerning for osteomyelitis s/p debridement and bone biopsies Cellulitis left foot resolved Left foot deformity, 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 Vital signs currently stable. She is s/p debridement and bone biopsies on 04/09/19 were reviewed with no bacterial growth noted on the microbiology report. Infectious disease consultation. She continues on antibiotics at this time. Clinically she continues to show improvement to bilateral lower extremity ulcer sites. Slight dehiscence appreciated to the distal aspect of the left lateral incision site. This is being covered with Aquacel Ag. Patient to continue to be nonweightbearing left foot and to keep ulcerations offloaded at all times. She was advised to wear her ankle-foot orthotic on the right lower extremity. A subcutaneous excisional debridement was performed with # 15 blade to excise devitalized subcutaneous, fibrous tissue, biofilm, slough tissue. She tolerated this well. Pressure was applied to maintain hemostasis. A dressing consisting of Aquacel Ag and gauze was applied to the right lower extremity. A dry gauze dressing was applied to the left lower extremity. Additionally, a wound VAC placed on continuous 125 and 150 mmHg will be applied later today by nursing staff. This patient continues to be high risk for ultimate limb loss due to foot condition and overall patient's health status, along with her non-adherence. Reviewed importance of proper nutrition and blood sugar control to optimize foot health. To continue with Ted for nutritional supplementation. Diabetes, DVT prophylaxis, and medical management per medicine team. Podiatry will continue to follow her closely while in-house on a weekly basis. Please not hesitate call if you have any questions.
[2019-04-25 16:20] VITALS: BP 121/54; PULSE 72; RESP 18; TEMP 36.5; O2SAT 95
[2019-04-25 16:55] LABS: Bedside Glucose 73 mg/dL (70-110)
[2019-04-25 17:54] VITALS: BP 121/54; PULSE 72
[2019-04-25 21:01] LABS: Bedside Glucose 277 mg/dL (70-110)
[2019-04-25] MEDS: 0.9% NaCl IVPB Med Flush (250 mL) 15 ML IV (21:23)
[2019-04-25] MEDS: Paroxetine 20 MG Tablet PO (21:32)
[2019-04-25] MEDS: MELATONIN 10 MG TABLET PO (21:32)
[2019-04-25] MEDS: Atorvastatin Calcium 80 MG Tablet PO (21:32)
[2019-04-26] MEDS: Acetaminophen 500 MG Tablet 1000 MG PO ×2 (02:03→23:06)
[2019-04-26] MEDS: oxyCODONE 5 MG Tablet PO ×4 (02:07→22:30)
[2019-04-26 06:16] LABS: Absolute Neutrophil Count 5.5 X10^3/uL (2.0-7.7); Basophil# 0.04 X10^3/uL; Basophil% 0.5 % (0-1); Eosinophil# 0.19 X10^3/uL; Eosinophils% 2.4 % (0-5); Hemoglobin 9.8 g/dL (12.0-15.0); Lymphocyte % 21.3 % (19-41); Mean Corp Hgb Conc 30.6 g/dL (32-36); Mean Corpuscular Hgb 26.9 pg (27.0-32.0); Mean Corpuscular Volume 87.9 fL (81-99); Mean Platelet Vol. 11.1 fl (6.2-12.0); Monocyte# 0.56 X10^3/uL; Neutrophil # 5.47 X10^3/uL (2.7-7.7); Neutrophil % 68.4 % (47-70); Platelet Count 365 K/mm3 (150-450); RBC Distribution Width CV 15.5 % (11.6-14.6); RBC Distribution Width SD 48.9 fl (35.1-43.9); Red Blood Count 3.64 M/mm3 (4.2-5.4)
[2019-04-26 06:20] LABS: Anion Gap 8 (5-15); BUN 45 mg/dL (7-18); BUN/Creat Ratio 43.3 RATIO (10-20); Calcium,Total 9.3 mg/dL (8.5-10.1); Chloride 109 mmol/L (98-107); Creatinine, Serum 1.04 mg/dL (0.55-1.02); EST Glomerular Filtration Rate 59 mL/min (>60); Est Glom Filt Rate - Afr Amer 71 mL/min (>60); Estimated Creatinine Clearance 58.56 ml/min; Glucose 243 mg/dL (74-106); Potassium 4.9 mmol/L (3.5-5.1); Sodium Level 139 mmol/L (136-145)
[2019-04-26 06:22] LABS: Erythrocyte Sedimentation Rate 68 mm/hr (0-30)
[2019-04-26] MEDS: Cefazolin 2 GM in 0.9% Normal Saline 100 ML IV ×3 (06:37→22:42)
[2019-04-26] MEDS: Glucerna Shake 120 ML LIQUID PO ×3 (06:37→17:36)
[2019-04-26 06:38] VITALS: BP 123/58; PULSE 66
[2019-04-26] MEDS: guaiFENesin 1,200 MG Tablet 1200 MG PO ×2 (06:38→17:40)
[2019-04-26] MEDS: Metoprolol Tartrate 25 MG Tablet 12.5 MG PO ×2 (06:38→17:39)
[2019-04-26] MEDS: Senna/Docusate Sodium 1 Tablet PO ×2 (06:39→17:41)
[2019-04-26] MEDS: Clopidogrel Bisulfate 75 MG Tablet PO (06:39)
[2019-04-26] MEDS: Ascorbic Acid 500 MG Tablet PO (06:39)
[2019-04-26] MEDS: Pramipexole Di-HCl 1 MG Tablet 1.5 MG PO ×2 (06:39→17:39)
[2019-04-26] MEDS: Metoclopramide 10 MG Tablet PO ×3 (06:39→22:32)
[2019-04-26] MEDS: Enoxaparin 40 MG/0.4 ML Syringe SC (06:40)
[2019-04-26] MEDS: Lisinopril 5 MG Tablet PO (06:40)
[2019-04-26] MEDS: 0.9% NaCl Midline IV Flush IV ×4 (06:42→22:38)
[2019-04-26 07:06] LABS: Bedside Glucose 239 mg/dL (70-110)
[2019-04-26] MEDS: Multivitamins,Therapeutic Tablet 1 TABLET PO (07:56)
[2019-04-26] MEDS: Gabapentin 300 MG Capsule 900 MG PO ×3 (07:57→17:38)
[2019-04-26] MEDS: Insulin Lispro 100 UNIT/ML INSULN.PEN 7 UNIT SC ×3 (07:57→17:37)
[2019-04-26 12:05] LABS: Bedside Glucose 275 mg/dL (70-110)
[2019-04-26 15:56] VITALS: BP 142/63; PULSE 75; RESP 19; TEMP 37; O2SAT 96
[2019-04-26 17:06] LABS: Bedside Glucose 302 mg/dL (70-110)
[2019-04-26 17:39] VITALS: BP 142/63; PULSE 75
[2019-04-26 21:16] LABS: Bedside Glucose 138 mg/dL (70-110)
[2019-04-26] MEDS: Paroxetine 20 MG Tablet PO (22:31)
[2019-04-26] MEDS: MELATONIN 10 MG TABLET PO (22:31)
[2019-04-26] MEDS: Atorvastatin Calcium 80 MG Tablet PO (22:31)
[2019-04-26] MEDS: 0.9% NaCl IVPB Med Flush (250 mL) 15 ML IV (22:38)
[2019-04-27] MEDS: oxyCODONE 5 MG Tablet PO ×4 (02:47→22:04)
[2019-04-27 06:24] VITALS: BP 142/73; PULSE 81
[2019-04-27] MEDS: Metoprolol Tartrate 25 MG Tablet 12.5 MG PO ×2 (06:24→17:14)
[2019-04-27] MEDS: Senna/Docusate Sodium 1 Tablet PO ×2 (06:24→17:14)
[2019-04-27] MEDS: Metoclopramide 10 MG Tablet PO (06:24)
[2019-04-27] MEDS: guaiFENesin 1,200 MG Tablet 1200 MG PO ×2 (06:24→17:14)
[2019-04-27] MEDS: Lisinopril 5 MG Tablet PO (06:24)
[2019-04-27] MEDS: Clopidogrel Bisulfate 75 MG Tablet PO (06:24)
[2019-04-27] MEDS: Polyethylene Glycol 3350 17 GM PACKET PO (06:24)
[2019-04-27] MEDS: Ascorbic Acid 500 MG Tablet PO (06:24)
[2019-04-27] MEDS: Pramipexole Di-HCl 1 MG Tablet 1.5 MG PO ×2 (06:24→17:15)
[2019-04-27] MEDS: 0.9% NaCl Midline IV Flush IV ×3 (06:26→21:55)
[2019-04-27] MEDS: Glucerna Shake 120 ML LIQUID PO ×4 (06:26→21:53)
[2019-04-27] MEDS: Enoxaparin 40 MG/0.4 ML Syringe SC (06:27)
[2019-04-27] MEDS: Acetaminophen 500 MG Tablet 1000 MG PO (06:33)
[2019-04-27 06:36] LABS: Bedside Glucose 301 mg/dL (70-110)
[2019-04-27] MEDS: Cefazolin 2 GM in 0.9% Normal Saline 100 ML IV ×3 (06:36→21:54)
[2019-04-27] MEDS: Insulin Lispro 100 UNIT/ML INSULN.PEN 7 UNIT SC ×3 (08:55→17:15)
[2019-04-27] MEDS: Gabapentin 300 MG Capsule 900 MG PO ×3 (08:56→17:15)
[2019-04-27] MEDS: Iron Polysaccharide Complex 150 MG CAPSULE PO (10:12)
[2019-04-27 10:56] LABS: Bedside Glucose 282 mg/dL (70-110)
--- NOTE | 2019-04-27 13:05 | NURSING ---
R' BACK FROM APPT WITH DR. MENJIVAR. NO N.O. NEXT F/U APPT 11/05/19 AT 1400.
[2019-04-27] MEDS: 0.9% NaCl IVPB Med Flush (250 mL) 15 ML IV (14:04)
[2019-04-27 15:04] VITALS: BP 149/69; PULSE 73; RESP 18; TEMP 36.7; O2SAT 97
[2019-04-27 17:00] LABS: Bedside Glucose 356 mg/dL (70-110)
[2019-04-27 17:14] VITALS: PULSE 73
[2019-04-27 21:25] LABS: Bedside Glucose 412 mg/dL (70-110)
--- NOTE | 2019-04-27 21:45 | NURSING ---
Dr. Hassan notified of patients hs blood sugar of 412. New order given for 30 units humalog x 1 then recheck blood sugar at 2300.
[2019-04-27] MEDS: MELATONIN 10 MG TABLET PO (21:57)
[2019-04-27] MEDS: Paroxetine 20 MG Tablet PO (21:58)
[2019-04-27] MEDS: Atorvastatin Calcium 80 MG Tablet PO (21:58)
[2019-04-27] MEDS: Zolpidem Tartrate 5 MG Tablet PO (22:04)
[2019-04-27] MEDS: Insulin Lispro 100 UNIT/ML INSULN.PEN 30 UNIT SC (22:05)
[2019-04-27 23:21] LABS: Bedside Glucose 211 mg/dL (70-110)
[2019-04-28] MEDS: Cefazolin 2 GM in 0.9% Normal Saline 100 ML IV ×3 (06:19→21:16)
[2019-04-28] MEDS: Glucerna Shake 120 ML LIQUID PO ×4 (06:19→22:02)
[2019-04-28 06:20] VITALS: BP 146/76; PULSE 81
[2019-04-28] MEDS: Pramipexole Di-HCl 1 MG Tablet 1.5 MG PO ×2 (06:20→17:28)
[2019-04-28] MEDS: Metoprolol Tartrate 25 MG Tablet 12.5 MG PO ×2 (06:20→17:28)
[2019-04-28] MEDS: Lisinopril 5 MG Tablet PO (06:21)
[2019-04-28] MEDS: Senna/Docusate Sodium 1 Tablet PO ×2 (06:21→17:29)
[2019-04-28] MEDS: Metoclopramide 10 MG Tablet PO (06:21)
[2019-04-28] MEDS: Ascorbic Acid 500 MG Tablet PO (06:21)
[2019-04-28] MEDS: guaiFENesin 1,200 MG Tablet 1200 MG PO ×2 (06:22→17:29)
[2019-04-28] MEDS: Enoxaparin 40 MG/0.4 ML Syringe SC (06:22)
[2019-04-28] MEDS: Clopidogrel Bisulfate 75 MG Tablet PO (06:22)
[2019-04-28] MEDS: Polyethylene Glycol 3350 17 GM PACKET PO (06:23)
[2019-04-28] MEDS: 0.9% NaCl Midline IV Flush IV ×3 (06:29→23:23)
[2019-04-28] MEDS: oxyCODONE 5 MG Tablet PO ×3 (06:33→19:47)
[2019-04-28 07:10] LABS: Bedside Glucose 182 mg/dL (70-110)
[2019-04-28] MEDS: Insulin Lispro 100 UNIT/ML INSULN.PEN 10 UNIT SC ×3 (09:45→17:27)
[2019-04-28] MEDS: Iron Polysaccharide Complex 150 MG CAPSULE PO (09:45)
[2019-04-28] MEDS: Multivitamins,Therapeutic Tablet 1 TABLET PO (09:45)
[2019-04-28] MEDS: Gabapentin 300 MG Capsule 900 MG PO ×3 (09:45→17:28)
[2019-04-28 11:16] LABS: Bedside Glucose 245 mg/dL (70-110)
--- NOTE | 2019-04-28 15:57 | NURSING ---
New order to D/C Reglan d/t causing patient to feel anxious.
[2019-04-28 15:58] VITALS: BP 157/90; PULSE 75; RESP 16; TEMP 36.9; O2SAT 98
[2019-04-28 17:11] LABS: Bedside Glucose 205 mg/dL (70-110)
[2019-04-28 17:28] VITALS: BP 157/90; PULSE 70
[2019-04-28 21:40] LABS: Bedside Glucose 196 mg/dL (70-110)
[2019-04-28] MEDS: Atorvastatin Calcium 80 MG Tablet PO (22:02)
[2019-04-28] MEDS: Paroxetine 20 MG Tablet PO (22:02)
[2019-04-28] MEDS: MELATONIN 10 MG TABLET PO (22:06)
[2019-04-28] MEDS: Zolpidem Tartrate 5 MG Tablet PO (23:25)
[2019-04-29 06:27] VITALS: BP 137/72; PULSE 83
[2019-04-29] MEDS: Metoprolol Tartrate 25 MG Tablet 12.5 MG PO ×2 (06:27→17:31)
[2019-04-29] MEDS: Senna/Docusate Sodium 1 Tablet PO ×2 (06:28→17:31)
[2019-04-29] MEDS: Lisinopril 5 MG Tablet PO (06:28)
[2019-04-29] MEDS: Ascorbic Acid 500 MG Tablet PO (06:28)
[2019-04-29] MEDS: Pramipexole Di-HCl 1 MG Tablet 1.5 MG PO ×2 (06:29→17:30)
[2019-04-29] MEDS: guaiFENesin 1,200 MG Tablet 1200 MG PO ×2 (06:30→17:31)
[2019-04-29] MEDS: Clopidogrel Bisulfate 75 MG Tablet PO (06:30)
[2019-04-29] MEDS: Enoxaparin 40 MG/0.4 ML Syringe SC (06:32)
[2019-04-29] MEDS: Cefazolin 2 GM in 0.9% Normal Saline 100 ML IV ×3 (06:40→22:12)
[2019-04-29] MEDS: 0.9% NaCl IVPB Med Flush (250 mL) 15 ML IV ×2 (06:40→20:52)
[2019-04-29] MEDS: 0.9% NaCl Midline IV Flush IV ×3 (06:40→20:51)
[2019-04-29] MEDS: Glucerna Shake 120 ML LIQUID PO ×2 (06:50→12:13)
[2019-04-29 07:31] LABS: Bedside Glucose 256 mg/dL (70-110)
[2019-04-29] MEDS: Gabapentin 300 MG Capsule 900 MG PO ×3 (08:18→17:29)
[2019-04-29] MEDS: Insulin Lispro 100 UNIT/ML INSULN.PEN 10 UNIT SC ×3 (08:18→17:34)
[2019-04-29] MEDS: Iron Polysaccharide Complex 150 MG CAPSULE PO (08:18)
[2019-04-29] MEDS: Multivitamins,Therapeutic Tablet 1 TABLET PO (08:19)
[2019-04-29 11:26] LABS: Bedside Glucose 207 mg/dL (70-110)
[2019-04-29] MEDS: Ondansetron ODT 4 MG Tablet PO (12:40)
[2019-04-29 16:00] VITALS: BP 147/72; PULSE 77; RESP 18; TEMP 37.2
[2019-04-29 17:15] LABS: Bedside Glucose 214 mg/dL (70-110)
[2019-04-29 17:31] VITALS: BP 147/72; PULSE 77
[2019-04-29] MEDS: Paroxetine 20 MG Tablet PO (20:50)
[2019-04-29] MEDS: oxyCODONE 5 MG Tablet PO (20:50)
[2019-04-29] MEDS: Acetaminophen 500 MG Tablet 1000 MG PO (20:51)
[2019-04-29] MEDS: MELATONIN 10 MG TABLET PO (20:51)
[2019-04-29] MEDS: Atorvastatin Calcium 80 MG Tablet PO (20:51)
[2019-04-29 21:45] LABS: Bedside Glucose 227 mg/dL (70-110)
[2019-04-29] MEDS: Zolpidem Tartrate 5 MG Tablet PO (23:48)
[2019-04-30] MEDS: Ascorbic Acid 500 MG Tablet PO (06:31)
[2019-04-30] MEDS: Senna/Docusate Sodium 1 Tablet PO ×2 (06:31→17:38)
[2019-04-30 06:32] VITALS: BP 134/77; PULSE 77
[2019-04-30] MEDS: Lisinopril 5 MG Tablet PO (06:32)
[2019-04-30] MEDS: Clopidogrel Bisulfate 75 MG Tablet PO (06:32)
[2019-04-30] MEDS: guaiFENesin 1,200 MG Tablet 1200 MG PO ×2 (06:32→17:38)
[2019-04-30] MEDS: Metoprolol Tartrate 25 MG Tablet 12.5 MG PO ×2 (06:32→17:38)
[2019-04-30] MEDS: Polyethylene Glycol 3350 17 GM PACKET PO (06:32)
[2019-04-30] MEDS: Pramipexole Di-HCl 1 MG Tablet 1.5 MG PO ×2 (06:32→17:38)
[2019-04-30] MEDS: Glucerna Shake 120 ML LIQUID PO ×3 (06:34→17:39)
[2019-04-30] MEDS: Enoxaparin 40 MG/0.4 ML Syringe SC (06:35)
[2019-04-30] MEDS: 0.9% NaCl Midline IV Flush IV ×3 (06:35→21:19)
[2019-04-30] MEDS: Cefazolin 2 GM in 0.9% Normal Saline 100 ML IV ×2 (06:49→12:48)
[2019-04-30 07:15] LABS: Bedside Glucose 226 mg/dL (70-110)
[2019-04-30] MEDS: Multivitamins,Therapeutic Tablet 1 TABLET PO (07:52)
[2019-04-30] MEDS: Gabapentin 300 MG Capsule 900 MG PO ×3 (07:52→17:38)
[2019-04-30] MEDS: Iron Polysaccharide Complex 150 MG CAPSULE PO (07:52)
[2019-04-30] MEDS: Insulin Lispro 100 UNIT/ML INSULN.PEN 10 UNIT SC ×4 (07:53→17:39)
--- NOTE | 2019-04-30 10:03 | PN_ITS ---
Subjective: Patient was seen this morning for bilateral foot ulcerations. She denies any pain to feet, no fever, chills, nausea, or diarrhea. - Physical Exam General: Alert, Oriented x3, Cooperative, No apparent distress Extremities: No cyanosis, Capillary Refill Less than 3 Seconds, No Calf Ten derness, Peripheral Pulses Normal, - - Right lateral ankle ulcer pre-debridement measurement is 1.8 x 1.4 x 0.1 cm with nonviable tissue present, post debridement is 1.9 x 1.5 x 0.1 cm and the base is granular and healthy. The left foot bone biopsy sites are well approximated with nylon sutures in place but distal dehiscence to the lateral incision site measuring approximately 1.4 cm x 0.9cm prior to debridement with nonviable tissue, measured 1.5cm x 1cm down to subcutaneous tissue with granular base and viable margins post debridement. The left foot plantar ulceration pre-debridement measures 2.9cm x 5.9 x 0.2 cm in depth with some nonviable tissue, and post debridement is 3cm x 6cm x 0.2 cm down to subcutanetous tissue layer with granular base and viable margins. There is no cellulitis, streaking, evidence of infection, deep tissue exposure, eschar or necrosis to bilateral lower extremity. The peripheral skin is hairless and atrophic bilateral, peripheral neuropathy present bilateral feet, no POP or pain on ROM to the foot/ankle. Musculoskeletal: No Tenderness to Palpation of Joints or Extremities Vital Signs Temp Pulse Resp BP Pulse Ox 98.9 F 77 18 134/77 H 98 04/29/19 16:00 04/30/19 06:32 04/29/19 16:00 04/30/19 06:32 04/28/19 15:58 Oxygen Delivery Method Room Air Weight: 88.932 kg Body Mass Index (BMI) 29.7 Finger Stick Blood Glucose 182 Intake and Output for Last 24 Hours 04/28/19 04/29/19 04/30/19 23:59 23:59 23:59 Intake Total 640 / 640 1062 / 1062 475 / 475 Balance 640 / 640 1062 / 1062 475 / 475 POC Glucose 04/30/19 04/29/19 04/29/19 06:18 21:39 17:02 POC Glucose 226 H 227 H 214 H 04/29/19 11:17 POC Glucose 207 H Medical Necessity - Tobacco Use Smoking Status: Never smoker Tobacco Use: Non-smoker Assessment/Plan All Active Problems (Last Reviewed 04/27/19 @ 12:50 by Saravanan Jean Baptiste MD) History of coronary artery stent placement (Resolved 09/21/18) NSTEMI (non-ST elevated myocardial infarction) (Resolved 09/2018) Chest pain (Resolved) Intractable nausea and vomiting (Resolved) Malnutrition (Resolved) Necrotizing soft tissue infection (Resolved) Severe sepsis (Resolved) Deep ulceration lateral left foot w/ abscess and osteomyelitis s/p debridement and bone biopsies Cellulitis left foot resolved Left foot deformity, 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 Overall right ankle and left foot ulcerations healing. A subcutaneous excisional debridement was performed with # 15 blade to excise devitalized subcutaneous, fibrous tissue, biofilm, slough tissue of ulcerations right ankle and left foot. She tolerated this well. Pressure was applied to maintain hemostasis. No anesthesia was needed due to patient's peripheral neuropathy. Post debridement measurements at noted above. There is some. dehiscence with ulceration to the distal aspect of the left lateral incision site. Sutures removed. Cleansed sites with normal saline solution and applied Aquacel Ag and gauze dressing to right ankle ulceration and wet to dry to left foot ulcerations with plan for wound vac to be reapplied. Patient to continue to be nonweightbearing left foot and to keep ulcerations offloaded at all times. She was advised to wear her ankle-foot orthotic on the right lower extremity. She continues on antibiotics at this time by infectious disease service. This patient continues to be high risk for ultimate limb loss due to foot condition and overall patient's health status, along with her non-adherence. Reviewed importance of proper nutrition and blood sugar control to optimize foot health. To continue with Ted for nutritional supplementation. Diabetes, DVT prophylaxis, and medical management per medicine team. Podiatry will continue to follow.
--- NOTE | 2019-04-30 10:16 | NURSING ---
Dr. Birmingham called to discuss pt's complaints related to antibiotic therapy
[2019-04-30 10:50] LABS: Bedside Glucose 197 mg/dL (70-110)
[2019-04-30] MEDS: oxyCODONE 5 MG Tablet PO ×3 (11:59→22:49)
[2019-04-30] MEDS: 0.9% NaCl IVPB Med Flush (250 mL) 15 ML IV (12:49)
[2019-04-30] MEDS: Ondansetron ODT 4 MG Tablet PO (13:07)
[2019-04-30] MEDS: hydrOXYzine PAM 25 MG Capsule 50 MG PO (13:27)
--- NOTE | 2019-04-30 13:56 | NURSING ---
R' BECAME VERY TEARFUL WHEN THIS NURSE WAS HOOKING UP ANTIBIOTIC. STATED IT WILL MAKE ME SICK ADMINISTERED ZOFRAN. THEN STATED THAT SHE WAS ITCHING AND WANTED HER IV OUT TO TAKE PO ANTIBIOTIC MEDS. INFORMED HER THAT SHE NEEDS THE IV ANTIBIOTICS AND DR. CARTER WOULD BE IN TO SEE HER TO DISCUSS CHANGING. PARIS George RN CALLED AND RECEIVED ORDER FOR VISTERIL WHICH WAS GIVEN. ALSO, INFORMED DR. TORRES R' TEARFUL AND WONDERING ABOUT INCREASING ANTIDEPRESSANT. DR. TORRES AWARE, NO N.O AT THIS TIME REGARDING ANTIDEPRESSANT. WOUND NURSE IN AT THIS TIME APPLYING WOUND VAC. R' STATES SHE FEELS BETTER. WILL CONT' TO MONITOR.
--- NOTE | 2019-04-30 14:04 | PCM.PN.ID ---
Subjective: C/o n/v, no fever, no diarrhea. - Physical Exam General: Alert, Cooperative, No apparent distress Lungs: Clear to auscultation, Normal air movement Cardiovascular: Regular rate, Regular Rhythm Abdomen: Soft, Non Tender, Non-Distended Skin: Ulcer/ Wound - L foot no drainage Vital Signs Temp Pulse Resp BP Pulse Ox 98.9 F 77 18 134/77 H 98 04/29/19 16:00 04/30/19 06:32 04/29/19 16:00 04/30/19 06:32 04/28/19 15:58 Oxygen Delivery Method Room Air Weight: 88.932 kg Body Mass Index (BMI) 29.7 Finger Stick Blood Glucose 182 Intake and Output for Last 24 Hours 04/28/19 04/29/19 04/30/19 23:59 23:59 23:59 Intake Total 640 / 640 1062 / 1062 835 / 835 Balance 640 / 640 1062 / 1062 835 / 835 POC Glucose 04/30/19 04/30/19 04/29/19 10:45 06:18 21:39 POC Glucose 197 H 226 H 227 H 04/29/19 17:02 POC Glucose 214 H Medical Necessity - Tobacco Use Smoking Status: Never smoker Tobacco Use: Non-smoker Route of nutrition/ use of supplements: [] Nutritional Intake: [] IV Site: [] Tirado Catheter: [] - Assessment/Plan Antibiotics: [] Assessment/Plan: [] L DM foot suspected osteo - recent cx with MSSA and GBS. On cefazolin as she has tolerated cephalosporins with no issue in the past. Bone bx neg. Plan on 6 weeks of cefazolin, stop date 05/21/19. Weekly bmp, cbc, and esr while on iv abx. Now c/o n/v with cefazolin, will change to ceftriaxone with same stop date to see if that helps. Will follow
--- NOTE | 2019-04-30 15:45 | NURSING ---
wound photo: left foot
--- NOTE | 2019-04-30 15:45 | NURSING ---
wound photo: left foot
--- NOTE | 2019-04-30 15:46 | NURSING ---
wound photo: right lateral ankle
[2019-04-30 15:59] VITALS: BP 130/54; PULSE 84; RESP 16; TEMP 36.8; O2SAT 96
[2019-04-30 17:16] LABS: Bedside Glucose 417 mg/dL (70-110)
--- NOTE | 2019-04-30 17:24 | NURSING ---
NOTIFIED DR. TORRES OF BS 417. ORDER HUMALOG 10UNITS X1 IN ADDITION TO 10UNITS HUMALOG THAT IS SCHEDULED.
[2019-04-30 17:38] VITALS: PULSE 84
--- NOTE | 2019-04-30 17:46 | NURSING ---
R' C/O TENDERNESS/PAIN/BURNING AROUND MIDLINE SITE. N.O. FOR FEED MILL TENDER TO EVAL.
[2019-04-30] MEDS: Zolpidem Tartrate 5 MG Tablet PO (21:18)
[2019-04-30] MEDS: Acetaminophen 500 MG Tablet 1000 MG PO (21:18)
[2019-04-30] MEDS: MELATONIN 10 MG TABLET PO (21:27)
[2019-04-30] MEDS: Atorvastatin Calcium 80 MG Tablet PO (21:27)
[2019-04-30] MEDS: Paroxetine 20 MG Tablet PO (21:27)
[2019-04-30 21:40] LABS: Bedside Glucose 449 mg/dL (70-110)
[2019-04-30] MEDS: Insulin Lispro 100 UNIT/ML INSULN.PEN 30 UNIT SC (22:51)
--- NOTE | 2019-04-30 23:19 | NURSING ---
Dr Hassan aware of pt's blood sugar, orders entered.
[2019-05-01] MEDS: guaiFENesin 1,200 MG Tablet 1200 MG PO ×2 (06:25→17:52)
[2019-05-01] MEDS: Pramipexole Di-HCl 1 MG Tablet 1.5 MG PO ×2 (06:25→17:52)
[2019-05-01] MEDS: Clopidogrel Bisulfate 75 MG Tablet PO (06:25)
[2019-05-01] MEDS: Ascorbic Acid 500 MG Tablet PO (06:25)
[2019-05-01] MEDS: Senna/Docusate Sodium 1 Tablet PO ×2 (06:25→17:52)
[2019-05-01] MEDS: Lisinopril 5 MG Tablet PO (06:25)
[2019-05-01 06:26] VITALS: BP 138/80; PULSE 73
[2019-05-01] MEDS: Metoprolol Tartrate 25 MG Tablet 12.5 MG PO ×2 (06:26→17:51)
[2019-05-01] MEDS: Polyethylene Glycol 3350 17 GM PACKET PO (06:27)
[2019-05-01] MEDS: Glucerna Shake 120 ML LIQUID PO ×2 (06:27→11:43)
[2019-05-01] MEDS: Enoxaparin 40 MG/0.4 ML Syringe SC (06:28)
[2019-05-01] MEDS: oxyCODONE 5 MG Tablet PO ×2 (06:34→18:00)
[2019-05-01 06:35] LABS: Bedside Glucose 143 mg/dL (70-110)
[2019-05-01] MEDS: Gabapentin 300 MG Capsule 900 MG PO ×3 (08:33→17:50)
[2019-05-01] MEDS: Iron Polysaccharide Complex 150 MG CAPSULE PO (08:33)
[2019-05-01] MEDS: Multivitamins,Therapeutic Tablet 1 TABLET PO (08:33)
[2019-05-01] MEDS: Calcium Carbonate 500 MG Tablet PO (08:38)
[2019-05-01] MEDS: Insulin Lispro 100 UNIT/ML INSULN.PEN 10 UNIT SC ×2 (08:39→11:43)
[2019-05-01] MEDS: 0.9% NaCl IVPB Med Flush (250 mL) 15 ML IV (10:16)
[2019-05-01] MEDS: 0.9% NaCl Midline IV Flush IV (10:17)
--- NOTE | 2019-05-01 10:39 | PCM.PN.ID ---
Subjective: Nausea much improved, no fever - Physical Exam General: Alert, Cooperative, No apparent distress Lungs: Clear to auscultation, Normal air movement Cardiovascular: Regular rate, Regular Rhythm Abdomen: Soft, Non Tender, Non-Distended Skin: Ulcer/ Wound - feet wrapped Vital Signs Temp Pulse Resp BP Pulse Ox 98.3 F 73 16 138/80 H 96 04/30/19 15:59 05/01/19 06:26 04/30/19 15:59 05/01/19 06:26 04/30/19 15:59 Oxygen Delivery Method Room Air Weight: 88.932 kg Body Mass Index (BMI) 29.7 Finger Stick Blood Glucose 182 Intake and Output for Last 24 Hours 04/29/19 04/30/19 05/01/19 23:59 23:59 23:59 Intake Total 1062 / 1062 1850 / 1850 270 / 270 Balance 1062 / 1062 1850 / 1850 270 / 270 POC Glucose 05/01/19 04/30/19 04/30/19 06:14 21:31 17:11 POC Glucose 143 H 449 H 417 H 04/30/19 10:45 POC Glucose 197 H Medical Necessity - Tobacco Use Smoking Status: Never smoker Tobacco Use: Non-smoker Route of nutrition/ use of supplements: [] Nutritional Intake: [] IV Site: [] Tirado Catheter: [] - Assessment/Plan Antibiotics: [] Assessment/Plan: [] L DM foot suspected osteo - recent cx with MSSA and GBS. On cefazolin as she has tolerated cephalosporins with no issue in the past. Bone bx neg. Plan on 6 weeks of cefazolin, stop date 05/21/19. Weekly bmp, cbc, and esr while on iv abx. Now c/o n/v with cefazolin, 04/30 change to ceftriaxone with same stop date to see if that helps. Nausea much improved this AM Will follow
[2019-05-01 11:31] LABS: Bedside Glucose 296 mg/dL (70-110)
[2019-05-01 16:00] VITALS: BP 152/78; PULSE 78; RESP 20; TEMP 36.8; O2SAT 97
[2019-05-01 17:06] LABS: Bedside Glucose 457 mg/dL (70-110)
[2019-05-01] MEDS: Insulin Lispro 100 UNIT/ML INSULN.PEN 30 UNIT SC (17:49)
[2019-05-01 17:51] VITALS: BP 152/78; PULSE 78
[2019-05-01] MEDS: Acetaminophen 500 MG Tablet 1000 MG PO (17:59)
[2019-05-01 19:56] LABS: Bedside Glucose 196 mg/dL (70-110)
[2019-05-01] MEDS: MELATONIN 10 MG TABLET PO (20:47)
[2019-05-01] MEDS: Paroxetine 20 MG Tablet PO (20:48)
[2019-05-01] MEDS: Atorvastatin Calcium 80 MG Tablet PO (20:48)
[2019-05-01 21:06] LABS: Bedside Glucose 195 mg/dL (70-110)
[2019-05-01] MEDS: Zolpidem Tartrate 5 MG Tablet PO (22:44)
[2019-05-02] MEDS: Glucerna Shake 120 ML LIQUID PO ×4 (05:47→20:21)
[2019-05-02] MEDS: oxyCODONE 5 MG Tablet PO ×3 (05:47→18:31)
[2019-05-02 05:48] VITALS: BP 168/86; PULSE 70
[2019-05-02] MEDS: Metoprolol Tartrate 25 MG Tablet 12.5 MG PO ×2 (05:48→17:33)
[2019-05-02] MEDS: Pramipexole Di-HCl 1 MG Tablet 1.5 MG PO ×2 (05:49→17:32)
[2019-05-02] MEDS: Clopidogrel Bisulfate 75 MG Tablet PO (05:49)
[2019-05-02] MEDS: Lisinopril 5 MG Tablet PO (05:49)
[2019-05-02] MEDS: Senna/Docusate Sodium 1 Tablet PO ×2 (05:49→17:32)
[2019-05-02] MEDS: Enoxaparin 40 MG/0.4 ML Syringe SC (05:49)
[2019-05-02] MEDS: guaiFENesin 1,200 MG Tablet 1200 MG PO ×2 (05:50→17:32)
[2019-05-02] MEDS: Ascorbic Acid 500 MG Tablet PO (05:50)
[2019-05-02 06:31] LABS: Bedside Glucose 221 mg/dL (70-110)
[2019-05-02] MEDS: Iron Polysaccharide Complex 150 MG CAPSULE PO (08:41)
[2019-05-02] MEDS: Gabapentin 300 MG Capsule 900 MG PO ×3 (08:41→17:32)
[2019-05-02] MEDS: Multivitamins,Therapeutic Tablet 1 TABLET PO (08:41)
[2019-05-02] MEDS: Insulin Lispro 100 UNIT/ML INSULN.PEN 17 UNIT SC ×2 (08:41→11:40)
[2019-05-02] MEDS: Acetaminophen 500 MG Tablet 1000 MG PO (08:50)
--- NOTE | 2019-05-02 08:51 | NURSING ---
pt c/o brown spot in vision to right eye x2 days. pt states had this happen at [place] and they did injections in eye. Will make appt with [facility]. will update dr castellon.
[2019-05-02] MEDS: 0.9% NaCl Midline IV Flush IV (10:28)
[2019-05-02 11:20] LABS: Bedside Glucose 175 mg/dL (70-110)
--- NOTE | 2019-05-02 12:32 | CASEMGMT ---
Social Work Completed PHQ-9 with pt. Pt reports mood improving. Physician increased medication and started on medication to help sleep better. Pt did not need to talk at this time. Will continue to follow. MARTIN AlmodovarW
[2019-05-02 16:00] VITALS: BP 138/73; PULSE 78; RESP 18; TEMP 36.2; O2SAT 98
[2019-05-02 16:51] LABS: Bedside Glucose 99 mg/dL (70-110)
[2019-05-02 17:33] VITALS: PULSE 78
--- NOTE | 2019-05-02 17:43 | NURSING ---
BLOOD SUGAR 99 TONIGHT, NEW ORDER TO HOLD HUMALOG BUT GIVE LANTUS ORDERED.
[2019-05-02] MEDS: Atorvastatin Calcium 80 MG Tablet PO (20:23)
[2019-05-02] MEDS: MELATONIN 10 MG TABLET PO (20:23)
[2019-05-02] MEDS: Paroxetine 20 MG Tablet PO (20:24)
[2019-05-02 21:31] LABS: Bedside Glucose 304 mg/dL (70-110)
[2019-05-02] MEDS: Zolpidem Tartrate 5 MG Tablet PO (22:48)
[2019-05-03] MEDS: Lisinopril 5 MG Tablet PO (04:36)
[2019-05-03] MEDS: guaiFENesin 1,200 MG Tablet 1200 MG PO ×2 (04:36→21:06)
[2019-05-03] MEDS: Ascorbic Acid 500 MG Tablet PO (04:36)
[2019-05-03] MEDS: Polyethylene Glycol 3350 17 GM PACKET PO (04:36)
[2019-05-03 04:37] VITALS: BP 133/78; PULSE 74
[2019-05-03] MEDS: Metoprolol Tartrate 25 MG Tablet 12.5 MG PO ×2 (04:37→21:08)
[2019-05-03] MEDS: Pramipexole Di-HCl 1 MG Tablet 1.5 MG PO ×2 (04:38→21:05)
[2019-05-03] MEDS: Clopidogrel Bisulfate 75 MG Tablet PO (04:38)
[2019-05-03] MEDS: Senna/Docusate Sodium 1 Tablet PO ×2 (04:38→21:05)
[2019-05-03] MEDS: oxyCODONE 5 MG Tablet PO ×3 (05:51→21:26)
[2019-05-03] MEDS: Glucerna Shake 120 ML LIQUID PO ×2 (05:54→12:15)
[2019-05-03 06:34] LABS: Absolute Neutrophil Count 4.1 X10^3/uL (2.0-7.7); Basophil# 0.04 X10^3/uL; Basophil% 0.6 % (0-1); Eosinophil# 0.27 X10^3/uL; Eosinophils% 4.3 % (0-5); Hematocrit 33.2 % (37-47); Lymphocyte % 20.6 % (19-41); Mean Corp Hgb Conc 30.1 g/dL (32-36); Mean Corpuscular Hgb 26.2 pg (27.0-32.0); Mean Corpuscular Volume 86.9 fL (81-99); Mean Platelet Vol. 10.8 fl (6.2-12.0); Monocyte# 0.54 X10^3/uL; Monocyte% 8.6 % (0-10); Neutrophil # 4.14 X10^3/uL (2.7-7.7); Neutrophil % 65.6 % (47-70); Platelet Count 306 K/mm3 (150-450); RBC Distribution Width CV 15.8 % (11.6-14.6); RBC Distribution Width SD 49.4 fl (35.1-43.9); Red Blood Count 3.82 M/mm3 (4.2-5.4); White Blood Count 6.3 K/mm3 (4.4-11.0)
[2019-05-03 06:46] LABS: Anion Gap 8 (5-15); BUN 41 mg/dL (7-18); BUN/Creat Ratio 43.7 RATIO (10-20); Calcium,Total 9.1 mg/dL (8.5-10.1); Chloride 107 mmol/L (98-107); Creatinine, Serum 0.94 mg/dL (0.55-1.02); EST Glomerular Filtration Rate 66 mL/min (>60); Est Glom Filt Rate - Afr Amer 80 mL/min (>60); Estimated Creatinine Clearance 64.79 ml/min; Glucose 271 mg/dL (74-106); Potassium 4.5 mmol/L (3.5-5.1); Sodium Level 139 mmol/L (136-145)
[2019-05-03 07:11] LABS: Bedside Glucose 287 mg/dL (70-110)
[2019-05-03 07:20] LABS: Erythrocyte Sedimentation Rate 83 mm/hr (0-30)
[2019-05-03] MEDS: Gabapentin 300 MG Capsule 900 MG PO ×3 (08:17→21:04)
[2019-05-03] MEDS: Multivitamins,Therapeutic Tablet 1 TABLET PO (08:18)
[2019-05-03] MEDS: Iron Polysaccharide Complex 150 MG CAPSULE PO (08:18)
[2019-05-03] MEDS: Insulin Lispro 100 UNIT/ML INSULN.PEN 17 UNIT SC ×3 (08:19→21:11)
[2019-05-03] MEDS: Acetaminophen 500 MG Tablet 1000 MG PO ×2 (08:23→15:14)
[2019-05-03 09:50] LABS: Bedside Glucose 212 mg/dL (70-110)
--- NOTE | 2019-05-03 09:53 | NURSING ---
Pt up to the bathroom in room prior to therapy per Malik. Pt c/o dizziness while standing and felt nauseated. Sitting BP 110/59, P 86. VS standing- BP 96/47, P 77, R 18, T 98.7 SpO2 97% on RA, BS 212. Reported to Giuliano IGLESIAS.
--- NOTE | 2019-05-03 10:07 | PCM.PN.ID ---
Subjective: Nausea resolved, no issue with new abx. No fever, no diarrhea. - Physical Exam General: Alert, Cooperative, No apparent distress Lungs: Clear to auscultation, Normal air movement Cardiovascular: Regular rate, Regular Rhythm Abdomen: Soft, Non Tender, Non-Distended Skin: Ulcer/ Wound - feet wrapped Vital Signs Temp Pulse Resp BP Pulse Ox 97.1 F L 74 18 133/78 H 98 05/02/19 16:00 05/03/19 04:37 05/02/19 16:00 05/03/19 04:37 05/02/19 16:00 Oxygen Delivery Method Room Air Weight: 88.932 kg Body Mass Index (BMI) 29.7 Finger Stick Blood Glucose 182 Intake and Output for Last 24 Hours 05/01/19 05/02/19 05/03/19 23:59 23:59 23:59 Intake Total 990 / 990 640 / 640 Balance 990 / 990 640 / 640 Laboratory Tests Past 24 Hrs 05/03/19 05/03/19 05:38 05:38 WBC 6.3 RBC 3.82 L Hgb 10.0 L Hct 33.2 L MCV 86.9 MCH 26.2 L MCHC 30.1 L RDW Std Deviation 49.4 H RDW Coeff of Fior 15.8 H Plt Count 306 MPV 10.8 Immature Gran % (Auto) 0.300 Neut % (Auto) 65.6 Lymph % (Auto) 20.6 [place] % (Auto) 8.6 Eos % (Auto) 4.3 Baso % (Auto) 0.6 Absolute Neuts (auto) 4.1 Absolute Lymphs (auto) 1.30 Total Counted Not Reportable ESR 83 H Sodium 139 Potassium 4.5 Chloride 107 Carbon Dioxide 24.0 Anion Gap 8 BUN 41 H Creatinine 0.94 Estim Creat Clear Calc 64.79 Est GFR (MDRD) Af Amer 80 Est GFR (MDRD) Non-Af 66 BUN/Creatinine Ratio 43.7 H Glucose 271 H Calcium 9.1 POC Glucose 05/03/19 05/03/19 05/02/19 09:45 06:21 21:14 POC Glucose 212 H 287 H 304 H 05/02/19 05/02/19 16:48 11:02 POC Glucose 99 175 H Medical Necessity - Tobacco Use Smoking Status: Never smoker Tobacco Use: Non-smoker Route of nutrition/ use of supplements: [] Nutritional Intake: [] IV Site: [] Tirado Catheter: [] - Assessment/Plan Antibiotics: [] Assessment/Plan: [] L DM foot suspected osteo - recent cx with MSSA and GBS. On cefazolin as she has tolerated cephalosporins with no issue in the past. Bone bx neg. Plan on 6 weeks of iv abx stop date 05/21/19. Weekly bmp, cbc, and esr while on iv abx. Developed n/v with cefazolin, 04/30 change to ceftriaxone with same stop date to see if that helps. Nausea much improved this AM Will follow
[2019-05-03 11:06] LABS: Bedside Glucose 135 mg/dL (70-110)
[2019-05-03] MEDS: 0.9% Normal Saline 1,000 ML 999 ML IV (11:07)
[2019-05-03] MEDS: 0.9% NaCl Midline IV Flush IV ×2 (11:07→23:23)
[2019-05-03] MEDS: Atorvastatin Calcium 80 MG Tablet PO (21:06)
[2019-05-03] MEDS: MELATONIN 10 MG TABLET PO (21:06)
[2019-05-03 21:08] VITALS: BP 146/74; PULSE 91
[2019-05-03] MEDS: Paroxetine 20 MG Tablet PO (21:18)
[2019-05-03 21:26] LABS: Bedside Glucose 340 mg/dL (70-110)
[2019-05-03] MEDS: Zolpidem Tartrate 5 MG Tablet PO (23:23)
[2019-05-04 06:28] VITALS: BP 127/46; PULSE 78
[2019-05-04] MEDS: Metoprolol Tartrate 25 MG Tablet 12.5 MG PO ×2 (06:28→17:44)
[2019-05-04] MEDS: Clopidogrel Bisulfate 75 MG Tablet PO (06:29)
[2019-05-04] MEDS: Pramipexole Di-HCl 1 MG Tablet 1.5 MG PO ×2 (06:29→17:45)
[2019-05-04] MEDS: Ascorbic Acid 500 MG Tablet PO (06:29)
[2019-05-04] MEDS: Lisinopril 5 MG Tablet PO (06:29)
[2019-05-04] MEDS: Senna/Docusate Sodium 1 Tablet PO (06:29)
[2019-05-04] MEDS: guaiFENesin 1,200 MG Tablet 1200 MG PO ×2 (06:29→17:43)
[2019-05-04] MEDS: Glucerna Shake 120 ML LIQUID PO ×3 (06:30→17:42)
[2019-05-04 06:51] LABS: Bedside Glucose 141 mg/dL (70-110)
--- NOTE | 2019-05-04 08:11 | CDU_ITS ---
Reason For Study: VERTIGO, VITREOUS HEMORRHAGE Rt. Velocities/BP Lt. Velocities/BP Prox CCA 94.8/14.4 cm/sec. Prox CCA 144.6/26.1 cm/sec. Mid CCA 82.2/14.6 cm/sec. Mid CCA 146.7/19.5 cm/sec. Dist CCA 82.2/18.3 cm/sec. Dist CCA 137.9/26.1 cm/sec. Prox ICA 111.2/16.3 cm/sec. Prox ICA 136.5/20.2 cm/sec. Mid ICA 123.9/36.3 cm/sec. Mid ICA 129.9/46.5 cm/sec. Dist ICA 58.8/18.3 cm/sec. Dist ICA 123.3/37.7 cm/sec. Rt. ICA/CCA = 123.9/94.8=1.3. Lt. ICA/CCA = 136.5/146.7=0.9. Prox ECA 113.1/8.9 cm/sec. Prox ECA 99.2/9.2 cm/sec. Rt. Vert. 82.2/17.1 cm/sec. Lt. Vert. 73.6/19.5 cm/sec. Right Extracranial There is homogeneous, smooth atherosclerotic plaque noted in the right common carotid artery. There is intimal thickening but no significant atherosclerotic plaque noted in the right internal carotid artery. The tortuous nature of the right internal carotid artery may result in flow velocities overestimating the degree of stenosis. There is no significant atherosclerotic plaque noted in the right external carotid artery. Antegrade flow is noted in the right vertebral artery. Left Extracranial There is homogeneous, smooth atherosclerotic plaque noted in the left common carotid artery. There is intimal thickening but no significant atherosclerotic plaque noted in the left internal carotid artery. The left internal carotid artery is very tortuous. There is no significant atherosclerotic plaque noted in the left external carotid artery. Antegrade flow is noted in the left vertebral artery. Procedure Carotid Duplex 46130. The exam was diagnostic. Exam performed portable in patient room. Interpretation Summary No significant atherosclerotic plaque or stenosis noted in the internal carotid arteries bilaterally. Flow within the vertebral arteries is antegrade bilaterally. Ordering Physician: Chauncey Hassan Referring Physician: Raúl Eric Performed By: Caren Good, ELENI, RVT
--- NOTE | 2019-05-04 08:12 | ECHOD_ITS ---
Reason For Study: S/P [facility] Procedure This was a 2D Doppler, Color Flow transthoracic echocardiogram. Exam performed portable in patient room. Left Ventricle Normal size and thickness. The estimated ejection fraction is 55 %. Diastolic function is indeterminate. No regional wall motion abnormalities noted. Right Ventricle Normal RV size. Normal systolic function. Atria Normal left atrium. Normal right atrium. No doppler evidence for ASD. Mitral Valve There is no mitral valve stenosis. Trivial mitral valve insufficiency. Tricuspid Valve There is no tricuspid stenosis. Unable to estimate RV systolic pressure due to insufficient tricuspid regurgitant envelope. Trivial tricuspid valve insufficiency. Aortic Valve Trisinus/trileaflet aortic valve. There is no aortic stenosis. No aortic valve insufficiency. Pulmonic Valve There is no pulmonic valvular stenosis. Trivial pulmonic valve insufficiency. Great Vessels Normal aortic root. Pericardium/Pleural No pericardial effusion. Medication Performed a rapid injection of agitated mix of 9 cc saline and 1cc air to assess for atrial septal defect. MMode/2D Measurements & Calculations LVIDd: 5.0 cm IVSd: 1.1 cm Ao root diam: 2.9 cm LVIDs: 3.5 cm LVPWd: 1.1 cm RVDd: 3.2 cm FS: 29.8 % LAV(MOD-bp): 61.7 ml EDV(MOD-sp4): 103.3 ml SV(MOD-sp4): 49.5 ml LAV(MOD-bp) Indexed: 31.1 ml/m2 ESV(MOD-sp4): 53.8 ml LAV(MOD-sp2): 57.9 ml EF(MOD-sp4): 47.9 % LAV(MOD-sp4): 53.1 ml LA dimension(2D): 3.9 cm LA A4 area: 20.0 cm2 RA A4 area: 15.7 cm2 Doppler Measurements & Calculations MV E max rhys: 88.0 cm/sec Lat Peak E' Rhys: 6.6 cm/sec Med Peak E' Rhys: 5.2 cm/sec MV A max rhys: 98.8 cm/sec E/E' lat: 13.3 E/E' med: 17.0 MV E/A: 0.89 Ao V2 max: 140.3 cm/sec LV V1 max: 94.2 cm/sec PA V2 max: 113.5 cm/sec Ao max P.9 mmHg LV V1 max P.6 mmHg TR max rhys: 240.4 cm/sec TR max P.1 mmHg Interpretation Summary The estimated ejection fraction is 55 %. Diastolic function is indeterminate. Trivial mitral valve insufficiency. Trivial tricuspid valve insufficiency. Ordering Physician: Chauncey Hassan Performed By: Geovanna Tate RDCS
--- NOTE | 2019-05-04 08:18 | NURSING ---
New orders from ophthalmology appointment, ECHO and BP carotid US d/t DX of vitreous hemorrhage. Appt with Dr. Britton on 05/09/19 at 1250.
[2019-05-04] MEDS: Ondansetron ODT 4 MG Tablet PO (08:51)
[2019-05-04] MEDS: Insulin Lispro 100 UNIT/ML INSULN.PEN 17 UNIT SC ×3 (08:53→17:46)
[2019-05-04] MEDS: Enoxaparin 40 MG/0.4 ML Syringe SC (08:56)
[2019-05-04] MEDS: Multivitamins,Therapeutic Tablet 1 TABLET PO (09:34)
[2019-05-04] MEDS: Gabapentin 300 MG Capsule 900 MG PO ×3 (09:34→17:44)
[2019-05-04] MEDS: Iron Polysaccharide Complex 150 MG CAPSULE PO (09:34)
[2019-05-04] MEDS: oxyCODONE 5 MG Tablet PO ×3 (09:40→22:45)
[2019-05-04] MEDS: 0.9% NaCl Midline IV Flush IV (10:48)
[2019-05-04 11:56] LABS: Bedside Glucose 108 mg/dL (70-110)
[2019-05-04 15:21] VITALS: BP 139/67; PULSE 80; RESP 18; TEMP 36.9; O2SAT 96
[2019-05-04 17:10] LABS: Bedside Glucose 247 mg/dL (70-110)
[2019-05-04 17:44] VITALS: BP 139/67; PULSE 80
[2019-05-04 21:06] LABS: Bedside Glucose 100 mg/dL (70-110)
[2019-05-04] MEDS: Zolpidem Tartrate 5 MG Tablet PO (22:36)
[2019-05-04] MEDS: Atorvastatin Calcium 80 MG Tablet PO (22:36)
[2019-05-04] MEDS: Paroxetine 20 MG Tablet PO (22:36)
[2019-05-04] MEDS: MELATONIN 10 MG TABLET PO (22:36)
[2019-05-05 06:27] VITALS: BP 146/76; PULSE 74
[2019-05-05] MEDS: Senna/Docusate Sodium 1 Tablet PO ×2 (06:27→23:26)
[2019-05-05] MEDS: Metoprolol Tartrate 25 MG Tablet 12.5 MG PO (06:27)
[2019-05-05] MEDS: Ascorbic Acid 500 MG Tablet PO (06:27)
[2019-05-05] MEDS: Clopidogrel Bisulfate 75 MG Tablet PO (06:27)
[2019-05-05] MEDS: Lisinopril 5 MG Tablet PO (06:27)
[2019-05-05] MEDS: guaiFENesin 1,200 MG Tablet 1200 MG PO ×2 (06:27→23:26)
[2019-05-05] MEDS: Pramipexole Di-HCl 1 MG Tablet 1.5 MG PO (06:27)
[2019-05-05] MEDS: Polyethylene Glycol 3350 17 GM PACKET PO (06:28)
[2019-05-05] MEDS: Enoxaparin 40 MG/0.4 ML Syringe SC (06:28)
[2019-05-05] MEDS: oxyCODONE 5 MG Tablet PO ×3 (06:33→23:56)
[2019-05-05 06:36] LABS: Bedside Glucose 266 mg/dL (70-110)
[2019-05-05] MEDS: 0.9% NaCl Midline IV Flush IV ×2 (06:39→09:46)
[2019-05-05] MEDS: Iron Polysaccharide Complex 150 MG CAPSULE PO (08:42)
[2019-05-05] MEDS: Insulin Lispro 100 UNIT/ML INSULN.PEN 17 UNIT SC (08:42)
[2019-05-05] MEDS: Gabapentin 300 MG Capsule 900 MG PO (08:42)
[2019-05-05] MEDS: Multivitamins,Therapeutic Tablet 1 TABLET PO (08:42)
--- NOTE | 2019-05-05 09:20 | NURSING ---
Addendum entered by Vivian Chand 05/05/19 12:22: Dr castellon updated, new order for PICC placement. INSURANCE BROKER aware and will place one in tomorrow. Original Note: LEENA midline will not flush, changed cap, position changes, still not flushing. RN geophysical laboratory supervisor notified, x1 attempt for iv stick in RT hand, unsuccessful. pt states she is a hard stick, took 13 times for insertion previously.
--- NOTE | 2019-05-05 11:13 | NURSING ---
Addendum entered by Елена Wilde 05/06/19 00:26: pt returned to unit 05/05/19 at 2245 Original Note: Pt off unit with knee walker for ALEX with family today, pt unable to give time of return. states she will call on way back to hospital
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
[2019-05-05 23:01] VITALS: BP 144/66; PULSE 87; RESP 18; TEMP 36.7; O2SAT 96
[2019-05-05 23:01] LABS: Bedside Glucose 287 mg/dL (70-110)
[2019-05-05] MEDS: MELATONIN 10 MG TABLET PO (23:28)
[2019-05-05] MEDS: Atorvastatin Calcium 80 MG Tablet PO (23:28)
[2019-05-05] MEDS: Paroxetine 20 MG Tablet PO (23:29)
[2019-05-05 23:38] LABS: Amphetamine Urine VISTA NEGATIVE (<1000 ng/mL); Barbiturate Urine VISTA NEGATIVE (< 200 ng/mL); Benzodiazepine Urine VISTA NEGATIVE (< 200 ng/mL); Cocaine Urine VISTA NEGATIVE (< 300 ng/mL); Ecstacy Urine VISTA NEGATIVE (< 500 ng/mL); Methadone Urine VISTA NEGATIVE (< 300 ng/mL); PCP Urine VISTA NEGATIVE (< 25 ng/mL); THC Urine VISTA NEGATIVE (< 50 ng/mL); Vista UDS pH Range 5
[2019-05-05] MEDS: Zolpidem Tartrate 5 MG Tablet PO (23:56)
[2019-05-06 00:19] VITALS: PULSE 81; O2SAT 99
[2019-05-06 06:10] VITALS: BP 150/81; PULSE 76
[2019-05-06] MEDS: Pramipexole Di-HCl 1 MG Tablet 1.5 MG PO ×2 (06:10→17:05)
[2019-05-06] MEDS: Lisinopril 5 MG Tablet PO (06:10)
[2019-05-06] MEDS: Clopidogrel Bisulfate 75 MG Tablet PO (06:10)
[2019-05-06] MEDS: guaiFENesin 1,200 MG Tablet 1200 MG PO ×2 (06:10→17:04)
[2019-05-06] MEDS: Metoprolol Tartrate 25 MG Tablet 12.5 MG PO ×2 (06:10→17:06)
[2019-05-06] MEDS: 0.9% NaCl Midline IV Flush IV ×3 (06:10→21:12)
[2019-05-06] MEDS: oxyCODONE 5 MG Tablet PO ×3 (06:10→22:34)
[2019-05-06] MEDS: Enoxaparin 40 MG/0.4 ML Syringe SC (06:10)
[2019-05-06] MEDS: Ascorbic Acid 500 MG Tablet PO (06:10)
[2019-05-06] MEDS: Senna/Docusate Sodium 1 Tablet PO ×2 (06:11→17:04)
[2019-05-06 06:31] LABS: Bedside Glucose 210 mg/dL (70-110)
--- NOTE | 2019-05-06 07:02 | NURSING ---
MEDICAL CLAIMS MANAGER called with ETA of between 10 & 11am
[2019-05-06 09:40] LABS: Bedside Glucose 221 mg/dL (70-110)
[2019-05-06 09:44] VITALS: BP 124/100; PULSE 87; RESP 20; TEMP 36.3; O2SAT 97
--- NOTE | 2019-05-06 09:46 | NURSING ---
Addendum entered by Vivian Chand 05/06/19 10:22: Dr Hassan updated, no new orders, monitor. Original Note: pt on toilet called out feeling lightheaded, nauseaous, and hands shaky. vitals done. lasted couple minutes. blood sugar rechecked 221. pt states that she took her own requip on her ALEX lastnight at 2100 & that she has felt this way before when she takes it. cool washcloth given. will recheck vitals. pt assisted back to bed, denies lightheadedness, still slightly shaking of hands. pt request hot tea and saltine crackers, given. pt has not ate brkfst yet d/t nausea.
--- NOTE | 2019-05-06 10:25 | NURSING ---
Addendum entered by Valencia Estevez 05/06/19 11:28: Dressing changed by Yamel with wireless field technician Addendum entered by Vivian Chand 05/06/19 10:55: No need to insert PICC line, Yamel able to flush midline w/good strong blood return. Feels it will be fine for the next 2 weeks if flushed and clamped appropriately. Original Note: wireless field technician Yamel arrived.
[2019-05-06] MEDS: 0.9% NaCl IVPB Med Flush (250 mL) 15 ML IV (10:58)
[2019-05-06] MEDS: Polyethylene Glycol 3350 17 GM PACKET PO (11:05)
[2019-05-06] MEDS: Ondansetron ODT 4 MG Tablet PO (11:08)
[2019-05-06 11:31] LABS: Bedside Glucose 252 mg/dL (70-110)
[2019-05-06] MEDS: Insulin Lispro 100 UNIT/ML INSULN.PEN 17 UNIT SC ×2 (12:33→17:45)
[2019-05-06] MEDS: Gabapentin 300 MG Capsule 900 MG PO ×2 (13:27→17:05)
[2019-05-06 15:46] LABS: Bedside Glucose 267 mg/dL (70-110)
[2019-05-06 16:00] VITALS: BP 135/67; PULSE 73; RESP 18; TEMP 37.1; O2SAT 99
[2019-05-06 17:06] VITALS: BP 135/67; PULSE 73
[2019-05-06] MEDS: Menthol/Camphor/Phenol 225ml Bottle 1 APPLIC TOPICAL (17:13)
[2019-05-06] MEDS: Atorvastatin Calcium 80 MG Tablet PO (21:05)
[2019-05-06] MEDS: Paroxetine 20 MG Tablet PO (21:06)
[2019-05-06] MEDS: MELATONIN 10 MG TABLET PO (21:06)
[2019-05-06] MEDS: Zolpidem Tartrate 5 MG Tablet PO (22:35)
[2019-05-07] MEDS: Menthol/Camphor/Phenol 225ml Bottle 1 APPLIC TOPICAL ×2 (02:57→23:03)
[2019-05-07] MEDS: oxyCODONE 5 MG Tablet PO ×3 (03:00→19:36)
[2019-05-07 05:54] VITALS: BP 139/80; PULSE 73
[2019-05-07] MEDS: Metoprolol Tartrate 25 MG Tablet 12.5 MG PO ×2 (05:54→17:59)
[2019-05-07] MEDS: Enoxaparin 40 MG/0.4 ML Syringe SC (05:55)
[2019-05-07] MEDS: guaiFENesin 1,200 MG Tablet 1200 MG PO ×2 (05:56→17:59)
[2019-05-07] MEDS: Pramipexole Di-HCl 1 MG Tablet 1.5 MG PO ×2 (05:56→17:59)
[2019-05-07] MEDS: Senna/Docusate Sodium 1 Tablet PO (05:57)
[2019-05-07] MEDS: Clopidogrel Bisulfate 75 MG Tablet PO (05:57)
[2019-05-07] MEDS: Lisinopril 5 MG Tablet PO (05:57)
[2019-05-07] MEDS: Ascorbic Acid 500 MG Tablet PO (05:57)
[2019-05-07 06:01] LABS: Bedside Glucose 280 mg/dL (70-110)
[2019-05-07] MEDS: Acetaminophen 500 MG Tablet 1000 MG PO (06:01)
--- NOTE | 2019-05-07 08:26 | RAD_ITS ---
STUDY: X-RAY - LEFT SHOULDER REASON FOR EXAM: Female, 53 years old. Left shoulder pain. No history of injury. TECHNIQUE: 4 view(s) of the shoulder. COMPARISON: None. FINDINGS: Normal glenohumeral articulation. Normal acromioclavicular joint. Normal acromion. Normal humeral head and visualized proximal humerus. The tip of a PICC line catheter is seen in the axillary region. Normal visualized pulmonary apex. RAD/Shoulder min 2 Views IMPRESSION: The tip of a PICC line catheter is seen in the axillary region. Electronically Signed: Ronnie Saavedra, at 13:31 EDT , Service support ,
[2019-05-07] MEDS: Gabapentin 300 MG Capsule 900 MG PO ×3 (09:18→17:59)
[2019-05-07] MEDS: Iron Polysaccharide Complex 150 MG CAPSULE PO (09:18)
[2019-05-07] MEDS: Multivitamins,Therapeutic Tablet 1 TABLET PO (09:19)
[2019-05-07] MEDS: Insulin Lispro 100 UNIT/ML INSULN.PEN 17 UNIT SC ×2 (09:20→12:50)
[2019-05-07] MEDS: 0.9% NaCl Midline IV Flush IV ×2 (10:44→22:59)
[2019-05-07 11:06] LABS: Bedside Glucose 232 mg/dL (70-110)
--- NOTE | 2019-05-07 15:31 | NURSING ---
wound photo: left foot
--- NOTE | 2019-05-07 15:32 | NURSING ---
wound photo: left foot
--- NOTE | 2019-05-07 15:33 | NURSING ---
wound photo: right lateral ankle
[2019-05-07 15:52] VITALS: BP 116/80; PULSE 78; RESP 20; TEMP 36.9; O2SAT 94
[2019-05-07 17:21] LABS: Bedside Glucose 101 mg/dL (70-110)
[2019-05-07 17:59] VITALS: BP 116/80; PULSE 78
--- NOTE | 2019-05-07 20:58 | PN_ITS ---
Subjective: Resident seen in room, sitting on bed, she has left shoulder pain today, X-ray left shoulder negative. She has left rotator cuff strain, will perform steroid injection of left subacromial bursa in AM. Vitals/I&O's: Vital Signs Temp Pulse Resp BP Pulse Ox 98.4 F 78 20 H 116/80 94 05/07/19 15:52 05/07/19 17:59 05/07/19 15:52 05/07/19 17:59 05/07/19 15:52 Oxygen Delivery Method Room Air Weight: 88.932 kg Body Mass Index (BMI) 29.7 Finger Stick Blood Glucose 182 Intake and Output for Last 24 Hours 05/05/19 05/06/19 05/07/19 23:59 23:59 23:59 Intake Total 240 / 240 850 / 850 960 / 960 Balance 240 / 240 850 / 850 960 / 960 Laboratory Results 05/07/19 05:53: POC Glucose 280 H 05/07/19 10:47: POC Glucose 232 H 05/07/19 17:14: POC Glucose 101 Past Medical History Past Medical History (Chronic Problems): Chronic Problems (Last Reviewed 04/27/19 @ 12:50 by Saravanan Jean Baptiste MD) Essential (primary) hypertension (Chronic) Ulcer of right lower extremity with fat layer exposed (Chronic) Chronic ulcer of left foot with fat layer exposed (Chronic) Ischemic cardiomyopathy (Chronic) EF 45% Atherosclerosis of [place] coronary artery of [place] heart without angina pectoris (Chronic) PCI-DARA mid LAD w/ 2.25 x 16 mm Promus Synergy, DARA prox LAD w/ 2.5 x 12 mm Promus Synergy 09/21/2018 HLD (hyperlipidemia) (Chronic) Medical History: Medical History (Last Reviewed 04/27/19 @ 12:50 by Saravanan Jean Baptiste MD) Essential (primary) hypertension (Chronic) I10 Ulcer of right lower extremity with fat layer exposed (Chronic) L97.912 Chronic ulcer of left foot with fat layer exposed (Chronic) L97.522 Ischemic cardiomyopathy (Chronic) I25.5 EF 45% Atherosclerosis of [place] coronary artery of [place] heart without angina pectoris (Chronic) I25.10 PCI-DARA mid LAD w/ 2.25 x 16 mm Promus Synergy, DARA prox LAD w/ 2.5 x 12 mm Promus Synergy 09/21/2018 NSTEMI (non-ST elevated myocardial infarction) (Resolved) Onset Date: 09/2018 I21.4 HLD (hyperlipidemia) (Chronic) E78.5 Anxiety F41.9 Abscess of right lower leg L02.415 diabetic ulcer abscess right lateral malleolus Acquired varus deformity of left foot M21.172 Acquired varus deformity of right foot M21.171 Back pain, chronic M54.9, G89.29 Cellulitis of foot, left L03.116 cellulitis and abscess of the left foot with possible osteomyelitis Chronic renal failure N18.9 Chronic ulcer of left foot with necrosis of muscle L97.523 Delayed wound healing T14.8XXD Depression F32.9 Diabetic foot ulcer associated with type 2 diabetes mellitus E11.621, L97.509 Diabetic polyneuropathy E11.42 Stage II?3 Diabetic ulcer of right ankle E11.622, L97.319 diabetic ulcer abscess right lateral malleolus GERD (gastroesophageal reflux disease) K21.9 Hypomagnesemia E83.42 Normocytic anemia D64.9 Obesity (BMI 30.0-34.9) E66.9 RLS (restless legs syndrome) Type 2 diabetes mellitus with diabetic polyneuropathy E11.42 Type II diabetes mellitus, uncontrolled E11.65 Osteomyelitis M86.9 Chest pain (Resolved) R07.9 Necrotizing soft tissue infection (Resolved) M79.89 Severe sepsis (Resolved) A41.9, R65.20 Hemoglobin A1c greater than 9.0% (Inactive) R73.09 12.2 Allergies Penicillins Allergy (Verified 04/27/19 12:25) Shortness of breath metronidazole Adverse Reaction (Verified 04/27/19 12:25) Nausea OXYCONTIN Allergy (Uncoded 04/27/19 12:25) Shortness of breath Home Medications: Ambulatory Orders Medication Instructions Recorded Ascorbic Acid [Vitamin C] 500 mg PO DAILY 09/20/18 Gabapentin [Neurontin] 900 mg PO TIDCM 09/20/18 Atorvastatin Calcium [Lipitor] 80 mg PO QHS 09/23/18 Lisinopril [Zestril] 5 mg PO DAILY 09/23/18 Metoprolol Tartrate [Lopressor 12.5 mg PO BID 09/23/18 (beta kunal)] escitalopram 10 mg tablet 20 mg PO DAILY 09/28/18 Clopidogrel Bisulfate [Plavix] 75 mg PO DAILY 03/14/19 Metoclopramide [Reglan] 10 mg PO TID PRN #30 tab 12/29/18 Acetaminophen [Tylenol Tablet] 650 mg PO Q6H PRN PRN 01/04/19 Calcium Carbonate [Tums] 500 mg PO Q4H PRN PRN 04/02/19 Cefazolin 2 gm IV Q8 04/11/19 Guaifenesin [Mucinex] 1,200 mg PO BID 04/11/19 Insulin Glargine [Lantus SoloStar 30 units SUBCUT QHS 04/11/19 Pen] Insulin Glargine [Lantus SoloStar 45 units SUBCUT QAM 04/11/19 Pen] Insulin Lispro [Humalog KwikPen] 12 unit SUBCUT BREAKFAST 04/11/19 Insulin Lispro [Humalog KwikPen] 15 unit SUBCUT LUNCH 04/11/19 Insulin Lispro [Humalog KwikPen] 18 unit SUBCUT DINNER 04/11/19 Melatonin 3 mg PO QHS PRN PRN tab 04/11/19 Multivitamins,Therapeutic 1 tab PO DAILYCM 04/11/19 [Multivitamin] Nutritional Supplement [Ted - 1 packet PO BIDCM 04/11/19 ORANGE FLAVOR] Pramipexole Di-HCl [Mirapex] 1.5 mg PO BID 04/11/19 Zinc Sulfate (50mg elemental) 220 mg PO DAILY 04/11/19 [Zinc Sulfate] Surgical History: Surgical History (Last Reviewed 04/27/19 @ 12:50 by Saravanan Jean Baptiste MD) History of coronary artery stent placement (Resolved) Onset Date: 09/21/18 Z95.5 PCI-DARA mid LAD w/ 2.25 x 16 mm Promus Synergy, DARA prox LAD w/ 2.5 x 12 mm Promus Synergy 09/21/2018 Surgical History: angioplasty - with stent., - - Severel R foot toe amputations and I+Ds, BL carpal tunnel surgery 1994, right shoulder surgery in 1994, section x2, most recently LLE I+D. Psychiatric History: Anxiety, Depression DATA STEWARD History: No pertinent DATA STEWARD history Lives: Alone Smoking Status: Never smoker Tobacco Use: Non-smoker Alcohol: None Drugs: None - *Family History Paternal History Items: - - Patient states her father when she was 5 years old, denies known medical history, denies known cardiac history. Maternal History Items: Cancer - Patient had a brother who had testicular cancer; and later cancer in his stomach., Diabetes, Hypertension, - - Her mother at the age of 67 to a blood clot to the brain. She had had multiple strokes preceding that. Patient had 3 brothers who had bypass surgery in their 50s. Sibling History Items: - - She has one brother who is secondary to cancer and she does not know what kind of cancer he had. She also has 3 brothers with a history of cardiovascular disease, stents and coronary artery bypass grafting. Capacity - Capacity Assessment Tool Can the patient make a choice & communicate that choice?: Yes Can the patient understand benefits, risks and alternatives?: Yes Can the patient make a logical, rational choice?: Yes Is the choice the patient makes consistent w/ their values?: Yes Is there an impending, emergent risk to the patient?: No Does the patient have an Advance Directive?: No Is there a Surrogate Available?: No i.e. HCPOA: No i.e. close relative (spouse, child, parent, sibling)?: No Review of Systems Constitutional: Denies: Chills, Fever, Weight Change HEENT: Denies: Head Aches, Sinus Congestion, Sinus Drainage Cardiovascular: Denies: Chest Pain, Palpitations Respiratory: Denies: Cough, Shortness of breath at rest, Sputum production Gastrointestinal: Denies: Abdominal Pain, Nausea, Vomiting Genitourinary: Denies: Dysuria Musculoskeletal: Reports: Joint Pain - Left shoulder pain.. Denies: Joint Tenderness Skin: Denies: Rash, Wounds Neurological: Denies: Numbness, Tingling, Focal weakness Psychiatric: Denies: Anxiety, Depression, Homicidal Ideations, Suicidal Ideations Hematologic/ Lymphatic: Denies: Easy Bruising, Easy Bleeding - Physical Exam General: Alert, Oriented x3, Cooperative HEENT: Atraumatic, PERRLA, EOMI, Normocephalic Neck: Supple, No JVD, Negative Carotid Bruits Lungs: Clear to auscultation, Normal air movement Cardiovascular: Regular rate, No murmurs Abdomen: Bowel Sounds Present, Soft, Non Tender Extremities: No edema, Capillary Refill Less than 3 Seconds Skin: No rashes, Ulcer/ Wound - Bilateral foot wounds per Dr. Guadrarama. Musculoskeletal: No Tenderness to Palpation of Joints or Extremities Neurological: Cranial nerves II-XII grossly intact Psych/Mental Status: Normal Affect, Appropriate Vital Signs Temp Pulse Resp BP Pulse Ox 98.4 F 78 20 H 116/80 94 05/07/19 15:52 05/07/19 17:59 05/07/19 15:52 05/07/19 17:59 05/07/19 15:52 Oxygen Delivery Method Room Air Weight: 88.932 kg Body Mass Index (BMI) 29.7 Finger Stick Blood Glucose 182 Intake and Output for Last 24 Hours 05/05/19 05/06/19 05/07/19 23:59 23:59 23:59 Intake Total 240 / 240 850 / 850 960 / 960 Balance 240 / 240 850 / 850 960 / 960 POC Glucose 05/07/19 05/07/19 05/07/19 17:14 10:47 05:53 POC Glucose 101 232 H 280 H Assessment/Plan All Active Problems (Last Reviewed 04/27/19 @ 12:50 by Saravanan Jean Baptiste MD) History of coronary artery stent placement (Resolved 09/21/18) NSTEMI (non-ST elevated myocardial infarction) (Resolved 09/2018) Chest pain (Resolved) Intractable nausea and vomiting (Resolved) Malnutrition (Resolved) Necrotizing soft tissue infection (Resolved) Severe sepsis (Resolved) 53 year old female with below past medical history hospitalized for left foot osteomyelitis, cultures growing MSSA, GBS, underwent debridement 04/09/[address] Guadarrama, admitted to TCU with debility, here for rehabilitation, strengthening, intravenous antibiotics, wound care, prior to discharge home alone. * Debility - PT/OT. * Pain - Tylenol 1000MG Q6H PRN mild pain, Oxycodone 5MG Q4H PRN moderate pain. * Bowel - Miralax 17GM daily, Senna/colace 1 tablet BID, Dulcolax 10MG OK daily PRN. * Pneumonia vaccination - Administer Prevnar 13 and/or Pneumovax 23 as necessary. * DVT prophylaxis - Lovenox 40MG SC daily. * Vitamin C deficiency - Vitamin C 500MG daily. * Hyperlipidemia - Atorvastatin 80MG QHS. * GERD - TUMS 500MG Q4H PRN. * Left foot osteomyelitis - Cefazolin discontinued due to nausea, Ceftriaxone 2MG IV Q8H thru 05/21/2019, Dr. Tello, Dr. Guadarrama following. * Coronary Artery Disease - Metoprolol 12.5MG BID, Lisinopril 5MG daily, Plavix 75MG daily. * Depression - Paroxetine 20MG QHS. * Diabetic polyneuropathy - Gabapentin 900MG TIDCM. * Congestion - Mucinex 1200MG BID. * Diabetes Mellitus II - Lantus 25 units BID, Humalog 17 units TIDAC. * Insomnia - Melatonin 10MG QHS, Zolpidem 5MG QHS PRN. * Nutrition - MVI daily, Ted 1 packet BID. * Restless Leg syndrome - Mirapex 1.5MG BID. * Zinc deficiency - Zinc 220MG daily. * Pruritus - Hydroxyzine 50MG Q6H PRN. * Iron deficiency anemia - Ferrex 150MG daily. * Skin irritation - Sarna TID PRN. * Nausea - Zofran 4MG Q8H PRN. * Rotator cuff syndrome - Left, plan steroid injection tomorrow.
[2019-05-07 21:30] LABS: Bedside Glucose 325 mg/dL (70-110)
--- NOTE | 2019-05-07 21:52 | NURSING ---
Pts blood sugar 325 this PM. Pts humalog was held earlier d/t a bs of 101. Pt requesting to get insulin tonight. Dr. Hassan aware, and new order for 20u humalog x1 and recheck bs in one hour. Will update pt.
[2019-05-07] MEDS: Insulin Lispro 100 UNIT/ML INSULN.PEN 20 UNIT SC (21:59)
[2019-05-07] MEDS: Zolpidem Tartrate 5 MG Tablet PO (22:59)
[2019-05-07] MEDS: Paroxetine 20 MG Tablet PO (23:02)
[2019-05-07] MEDS: MELATONIN 10 MG TABLET PO (23:02)
[2019-05-07] MEDS: Atorvastatin Calcium 80 MG Tablet PO (23:02)
[2019-05-07 23:11] LABS: Bedside Glucose 335 mg/dL (70-110)
[2019-05-08 03:16] LABS: Bedside Glucose 141 mg/dL (70-110)
[2019-05-08 06:15] VITALS: BP 147/72; PULSE 70
[2019-05-08] MEDS: Clopidogrel Bisulfate 75 MG Tablet PO (06:15)
[2019-05-08] MEDS: guaiFENesin 1,200 MG Tablet 1200 MG PO ×2 (06:15→16:56)
[2019-05-08] MEDS: Ascorbic Acid 500 MG Tablet PO (06:15)
[2019-05-08] MEDS: Metoprolol Tartrate 25 MG Tablet 12.5 MG PO ×2 (06:15→16:55)
[2019-05-08] MEDS: Lisinopril 5 MG Tablet PO (06:15)
[2019-05-08] MEDS: Pramipexole Di-HCl 1 MG Tablet 1.5 MG PO ×2 (06:15→16:55)
[2019-05-08] MEDS: Menthol/Camphor/Phenol 225ml Bottle 1 APPLIC TOPICAL ×2 (06:17→12:47)
[2019-05-08] MEDS: Enoxaparin 40 MG/0.4 ML Syringe SC (06:19)
[2019-05-08 06:56] LABS: Bedside Glucose 148 mg/dL (70-110)
--- NOTE | 2019-05-08 08:27 | PCM.TCUNOT ---
Subjective: Resident seen in room, sitting on bed, here for procedure only. Resident has left rotator cuff strain, X-ray left shoulder normal. After informed consent, the area was prepped and draped in sterile manner, anesthesia with vapocoolant spray, left subacromial bursa injected with Kenalog 40MG, Lidocaine 1% 1ML, no immediate complications. Vitals/I&O's: Vital Signs Temp Pulse Resp BP Pulse Ox 98.4 F 70 20 H 147/72 H 94 05/07/19 15:52 05/08/19 06:15 05/07/19 15:52 05/08/19 06:15 05/07/19 15:52 Oxygen Delivery Method Room Air Weight: 88.932 kg Body Mass Index (BMI) 29.7 Finger Stick Blood Glucose 182 Intake and Output for Last 24 Hours 05/06/19 05/07/19 05/08/19 23:59 23:59 23:59 Intake Total 850 / 850 960 / 960 Balance 850 / 850 960 / 960 Laboratory Results 05/07/19 10:47: POC Glucose 232 H 05/07/19 17:14: POC Glucose 101 05/07/19 21:13: POC Glucose 325 H 05/07/19 23:05: POC Glucose 335 H 05/08/19 03:09: POC Glucose 141 H 05/08/19 06:44: POC Glucose 148 H Past Medical History Past Medical History (Chronic Problems): Chronic Problems (Last Reviewed 04/27/19 @ 12:50 by Saravanan Jean Baptiste MD) Essential (primary) hypertension (Chronic) Ulcer of right lower extremity with fat layer exposed (Chronic) Chronic ulcer of left foot with fat layer exposed (Chronic) Ischemic cardiomyopathy (Chronic) EF 45% Atherosclerosis of [place] coronary artery of [place] heart without angina pectoris (Chronic) PCI-DARA mid LAD w/ 2.25 x 16 mm Promus Synergy, DARA prox LAD w/ 2.5 x 12 mm Promus Synergy 09/21/2018 HLD (hyperlipidemia) (Chronic) Medical History: Medical History (Last Reviewed 04/27/19 @ 12:50 by Saravanan Jean Baptiste MD) Essential (primary) hypertension (Chronic) I10 Ulcer of right lower extremity with fat layer exposed (Chronic) L97.912 Chronic ulcer of left foot with fat layer exposed (Chronic) L97.522 Ischemic cardiomyopathy (Chronic) I25.5 EF 45% Atherosclerosis of [place] coronary artery of [place] heart without angina pectoris (Chronic) I25.10 PCI-DARA mid LAD w/ 2.25 x 16 mm Promus Synergy, DARA prox LAD w/ 2.5 x 12 mm Promus Synergy 09/21/2018 NSTEMI (non-ST elevated myocardial infarction) (Resolved) Onset Date: 09/2018 I21.4 HLD (hyperlipidemia) (Chronic) E78.5 Anxiety F41.9 Abscess of right lower leg L02.415 diabetic ulcer abscess right lateral malleolus Acquired varus deformity of left foot M21.172 Acquired varus deformity of right foot M21.171 Back pain, chronic M54.9, G89.29 Cellulitis of foot, left L03.116 cellulitis and abscess of the left foot with possible osteomyelitis Chronic renal failure N18.9 Chronic ulcer of left foot with necrosis of muscle L97.523 Delayed wound healing T14.8XXD Depression F32.9 Diabetic foot ulcer associated with type 2 diabetes mellitus E11.621, L97.509 Diabetic polyneuropathy E11.42 Stage II?3 Diabetic ulcer of right ankle E11.622, L97.319 diabetic ulcer abscess right lateral malleolus GERD (gastroesophageal reflux disease) K21.9 Hypomagnesemia E83.42 Normocytic anemia D64.9 Obesity (BMI 30.0-34.9) E66.9 RLS (restless legs syndrome) Type 2 diabetes mellitus with diabetic polyneuropathy E11.42 Type II diabetes mellitus, uncontrolled E11.65 Osteomyelitis M86.9 Chest pain (Resolved) R07.9 Necrotizing soft tissue infection (Resolved) M79.89 Severe sepsis (Resolved) A41.9, R65.20 Hemoglobin A1c greater than 9.0% (Inactive) R73.09 12.2 Allergies Penicillins Allergy (Verified 04/27/19 12:25) Shortness of breath metronidazole Adverse Reaction (Verified 04/27/19 12:25) Nausea OXYCONTIN Allergy (Uncoded 04/27/19 12:25) Shortness of breath Home Medications: Ambulatory Orders Medication Instructions Recorded Ascorbic Acid [Vitamin C] 500 mg PO DAILY 09/20/18 Gabapentin [Neurontin] 900 mg PO TIDCM 09/20/18 Atorvastatin Calcium [Lipitor] 80 mg PO QHS 09/23/18 Lisinopril [Zestril] 5 mg PO DAILY 09/23/18 Metoprolol Tartrate [Lopressor 12.5 mg PO BID 09/23/18 (beta kunal)] escitalopram 10 mg tablet 20 mg PO DAILY 09/28/18 Clopidogrel Bisulfate [Plavix] 75 mg PO DAILY 12/21/18 Metoclopramide [Reglan] 10 mg PO TID PRN #30 tab 12/29/18 Acetaminophen [Tylenol Tablet] 650 mg PO Q6H PRN PRN 01/04/19 Calcium Carbonate [Tums] 500 mg PO Q4H PRN PRN 04/02/19 Cefazolin 2 gm IV Q8 04/11/19 Guaifenesin [Mucinex] 1,200 mg PO BID 04/11/19 Insulin Glargine [Lantus SoloStar 30 units SUBCUT QHS 04/11/19 Pen] Insulin Glargine [Lantus SoloStar 45 units SUBCUT QAM 04/11/19 Pen] Insulin Lispro [Humalog KwikPen] 12 unit SUBCUT BREAKFAST 04/11/19 Insulin Lispro [Humalog KwikPen] 15 unit SUBCUT LUNCH 04/11/19 Insulin Lispro [Humalog KwikPen] 18 unit SUBCUT DINNER 04/11/19 Melatonin 3 mg PO QHS PRN PRN tab 04/11/19 Multivitamins,Therapeutic 1 tab PO DAILYCM 04/11/19 [Multivitamin] Nutritional Supplement [Ted - 1 packet PO BIDCM 04/11/19 ORANGE FLAVOR] Pramipexole Di-HCl [Mirapex] 1.5 mg PO BID 04/11/19 Zinc Sulfate (50mg elemental) 220 mg PO DAILY 04/11/19 [Zinc Sulfate] Surgical History: Surgical History (Last Reviewed 04/27/19 @ 12:50 by Saravanan Jean Baptiste MD) History of coronary artery stent placement (Resolved) Onset Date: 09/21/18 Z95.5 PCI-DARA mid LAD w/ 2.25 x 16 mm Promus Synergy, DARA prox LAD w/ 2.5 x 12 mm Promus Synergy 09/21/2018 Surgical History: angioplasty - with stent., - - [place] R foot toe amputations and I+Ds, BL carpal tunnel surgery 1994, right shoulder surgery in 1994, section x2, most recently LLE I+D. 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 Maternal History Items: Cancer - Patient had a brother who had testicular cancer; and later cancer in his stomach., Diabetes, Hypertension, - - Her mother at the age of 67 to a blood clot to the brain. She had had multiple strokes preceding that. Patient had 3 brothers who had bypass surgery in their 50s. Sibling History Items: - - She has one brother who is secondary to cancer and she does not know what kind of cancer he had. She also has 3 brothers with a history of cardiovascular disease, stents and coronary artery bypass grafting. Capacity - Capacity Assessment Tool Can the patient make a choice & communicate that choice?: Yes Can the patient understand benefits, risks and alternatives?: Yes Can the patient make a logical, rational choice?: Yes Is the choice the patient makes consistent w/ their values?: Yes Is there an impending, emergent risk to the patient?: No Does the patient have an Advance Directive?: No Is there a Surrogate Available?: No i.e. HCPOA: No i.e. close relative (spouse, child, parent, sibling)?: No Review of Systems Constitutional: Denies: Chills, Fever, Weight Change HEENT: Denies: Head Aches, Sinus Congestion, Sinus Drainage Cardiovascular: Denies: Chest Pain, Palpitations Respiratory: Denies: Cough, Shortness of breath at rest, Sputum production Gastrointestinal: Denies: Abdominal Pain, Nausea, Vomiting Genitourinary: Denies: Dysuria Musculoskeletal: Reports: Joint Pain - Left shoulder pain.. Denies: Joint Tenderness Skin: Denies: Rash, Wounds Neurological: Denies: Numbness, Tingling, Focal weakness Psychiatric: Denies: Anxiety, Depression, Homicidal Ideations, Suicidal Ideations Hematologic/ Lymphatic: Denies: Easy Bruising, Easy Bleeding - Physical Exam Vital Signs Temp Pulse Resp BP Pulse Ox 98.4 F 70 20 H 147/72 H 94 05/07/19 15:52 05/08/19 06:15 05/07/19 15:52 05/08/19 06:15 05/07/19 15:52 Oxygen Delivery Method Room Air Weight: 88.932 kg Body Mass Index (BMI) 29.7 Finger Stick Blood Glucose 182 Intake and Output for Last 24 Hours 05/06/19 05/07/19 05/08/19 23:59 23:59 23:59 Intake Total 850 / 850 960 / 960 Balance 850 / 850 960 / 960 POC Glucose 05/08/19 05/08/19 05/07/19 06:44 03:09 23:05 POC Glucose 148 H 141 H 335 H 05/07/19 05/07/19 05/07/19 21:13 17:14 10:47 POC Glucose 325 H 101 232 H Assessment/Plan All Active Problems (Last Reviewed 04/27/19 @ 12:50 by Saravanan Jean Baptiste MD) History of coronary artery stent placement (Resolved 09/21/18) NSTEMI (non-ST elevated myocardial infarction) (Resolved 09/2018) Chest pain (Resolved) Intractable nausea and vomiting (Resolved) Malnutrition (Resolved) Necrotizing soft tissue infection (Resolved) Severe sepsis (Resolved) 53 year old female with below past medical history hospitalized for left foot osteomyelitis, cultures growing MSSA, GBS, underwent debridement 04/09/[address] Guadarrama, admitted to TCU with debility, here for rehabilitation, strengthening, intravenous antibiotics, wound care, prior to discharge home alone. Rotator cuff syndrome - Left, left subacromial bursa injected as documented above, no immediate complications, resident tolerated procedure well.
[2019-05-08] MEDS: oxyCODONE 5 MG Tablet PO ×2 (08:46→16:54)
[2019-05-08] MEDS: Gabapentin 300 MG Capsule 900 MG PO ×3 (08:47→16:55)
[2019-05-08] MEDS: Multivitamins,Therapeutic Tablet 1 TABLET PO (08:47)
[2019-05-08] MEDS: Iron Polysaccharide Complex 150 MG CAPSULE PO (08:47)
[2019-05-08] MEDS: Insulin Lispro 100 UNIT/ML INSULN.PEN 17 UNIT SC ×3 (08:49→18:01)
[2019-05-08] MEDS: 0.9% NaCl IVPB Med Flush (250 mL) 15 ML IV (09:53)
--- NOTE | 2019-05-08 10:38 | MDS.RN ---
Information for the mds was obtained from review of the clinical record, interview of resident, staff, and direct observation of resident's care..
[2019-05-08 11:15] LABS: Bedside Glucose 218 mg/dL (70-110)
[2019-05-08 15:07] VITALS: BP 122/71; PULSE 74; RESP 21; TEMP 36.8; O2SAT 96
[2019-05-08 16:55] VITALS: BP 122/71; PULSE 74
[2019-05-08] MEDS: Senna/Docusate Sodium 1 Tablet PO (16:56)
[2019-05-08 17:01] LABS: Bedside Glucose 183 mg/dL (70-110)
[2019-05-08 21:06] LABS: Bedside Glucose 334 mg/dL (70-110)
[2019-05-08] MEDS: Zolpidem Tartrate 5 MG Tablet PO (22:12)
[2019-05-08] MEDS: MELATONIN 10 MG TABLET PO (22:13)
[2019-05-08] MEDS: 0.9% NaCl Midline IV Flush IV (22:13)
[2019-05-08] MEDS: Paroxetine 20 MG Tablet PO (22:13)
[2019-05-08] MEDS: Atorvastatin Calcium 80 MG Tablet PO (22:13)
[2019-05-09 05:27] VITALS: BP 149/76; PULSE 76
[2019-05-09] MEDS: Enoxaparin 40 MG/0.4 ML Syringe SC (05:27)
[2019-05-09] MEDS: guaiFENesin 1,200 MG Tablet 1200 MG PO ×2 (05:27→20:16)
[2019-05-09] MEDS: Ascorbic Acid 500 MG Tablet PO (05:27)
[2019-05-09] MEDS: Lisinopril 5 MG Tablet PO (05:27)
[2019-05-09] MEDS: Metoprolol Tartrate 25 MG Tablet 12.5 MG PO ×2 (05:27→20:13)
[2019-05-09] MEDS: Pramipexole Di-HCl 1 MG Tablet 1.5 MG PO ×2 (05:27→20:15)
[2019-05-09] MEDS: Clopidogrel Bisulfate 75 MG Tablet PO (05:27)
[2019-05-09] MEDS: oxyCODONE 5 MG Tablet PO ×3 (05:28→20:10)
[2019-05-09 05:41] LABS: Bedside Glucose 197 mg/dL (70-110)
[2019-05-09] MEDS: Menthol/Camphor/Phenol 225ml Bottle 1 APPLIC TOPICAL ×3 (06:14→20:10)
--- NOTE | 2019-05-09 07:41 | PCM.PROGNOTE ---
Subjective: This 53-year-old female seen bedside for bilateral lower extremity wounds. It is noted that she did have a surgical debridement for prior infection of the left foot with bone biopsies. She has completed a course of IV antibiotics for treatment of osteomyelitis of the left foot. She has kept weight off of this foot while in the transitional care unit. She thinks her right ankle site has healed. She is apprehensive to wear her ankle-foot orthotic because it rubs on and near the wound site. - Physical Exam General: Alert, Oriented x3, Cooperative Skin: Ulcer/ Wound - Plantar lateral left foot ulcer measures 1.8 x 4.3 x 0.1 cm pre-debridement and 2.0 x 4.5 x 0.1 cm post debridement with healthy granular beefy red base. There is a dorsal lateral ulcer on the left foot that measures 0.9 x 1.3 x 1.8 cm and post debridement 1.0 x 1.5 x 2.0 cm with fibrous and granular base. This does probe to deeper structures and communicates with the other plantar ulcer. There is no necrosis, maceration, purulence, odor, erythema, streaking noted., - - Full epithelialization noted to lateral right ankle this site has healed. The skin is atrophic at the recently heel ulcer site. Musculoskeletal: No Tenderness to Palpation of Joints or Extremities, Muscle Wasting, - - Ray resection left foot noted Neurological: - - Lack of normal epicritic sensation light touch consistent with neuropathy status left and right lower extremities Psych/Mental Status: Normal Affect, Appropriate Vital Signs Temp Pulse Resp BP Pulse Ox 98.2 F 76 21 H 149/76 H 96 05/08/19 15:07 05/09/19 05:27 05/08/19 15:07 05/09/19 05:27 05/08/19 15:07 Oxygen Delivery Method Room Air Weight: 88.564 kg Body Mass Index (BMI) 29.7 Finger Stick Blood Glucose 182 Intake and Output for Last 24 Hours 05/07/19 05/08/19 05/09/19 23:59 23:59 23:59 Intake Total 960 / 960 840 / 840 Output Total 100 / 100 Balance 960 / 960 840 / 840 -100 / -100 POC Glucose 05/09/19 05/08/19 05/08/19 05:35 20:57 16:49 POC Glucose 197 H 334 H 183 H 05/08/19 10:53 POC Glucose 218 H Medical Necessity - Tobacco Use Smoking Status: Never smoker Tobacco Use: Non-smoker Assessment/Plan All Active Problems (Last Reviewed 05/08/19 @ 15:41 by Becky Sanfodr) History of coronary artery stent placement (Resolved 09/21/18) NSTEMI (non-ST elevated myocardial infarction) (Resolved 09/2018) Chest pain (Resolved) Intractable nausea and vomiting (Resolved) Malnutrition (Resolved) Necrotizing soft tissue infection (Resolved) Severe sepsis (Resolved) Deep ulceration lateral left foot w/ abscess and osteomyelitis s/p debridement and bone biopsies Cellulitis left foot resolved Left foot deformity, s/p 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 It is noted the right ankle has recently healed in the left foot ulcers are improving. To discontinue right lower extremity dressing. She will have her ankle-foot orthotic adjusted after discharge from the transitional care unit and then will resume use to prevent recurrent ulceration. A subcutaneous excisional debridement was performed with # 15 blade to excise devitalized subcutaneous, fibrous tissue, biofilm, slough tissue of ulcerations to the left foot. She tolerated this well. Pressure was applied to maintain hemostasis. No anesthesia was needed due to patient's peripheral neuropathy. Post debridement measurements at noted above. A new dressing was applied. She will resume wound VAC use; order was placed. Patient to continue to be nonweightbearing left foot and to keep ulcerations offloaded at all times. She continues on antibiotics at this time by infectious disease service. Her cultures demonstrated MSSA and GBS. Her antibiotic regimen was changed to ceftriaxone and her stop date is scheduled for May 21, 2019. Infectious disease is on consultation and recommendations are appreciated. This patient continues to be high risk for ultimate limb loss due to foot condition and overall patient's health status, along with her non-adherence. Reviewed importance of proper nutrition and blood sugar control to optimize foot health. To continue with Ted for nutritional supplementation. Diabetes, DVT prophylaxis, and medical management per medicine team is appreciated. Podiatry will continue to follow weekly. Please not hesitate to call if you have any questions. Lavern Edgar DPM, [facility] [phone]
--- NOTE | 2019-05-09 08:32 | NURSING ---
Dr. Edgar in to see patient this morning, continue with wound vac therapy at 150mmHg and D/C dressing to foot d/t healed status.
[2019-05-09] MEDS: Gabapentin 300 MG Capsule 900 MG PO ×3 (08:36→20:09)
[2019-05-09] MEDS: Iron Polysaccharide Complex 150 MG CAPSULE PO (08:36)
[2019-05-09] MEDS: Multivitamins,Therapeutic Tablet 1 TABLET PO (08:36)
[2019-05-09] MEDS: Insulin Lispro 100 UNIT/ML INSULN.PEN 17 UNIT SC ×3 (08:37→20:08)
[2019-05-09] MEDS: 0.9% NaCl Midline IV Flush IV ×2 (10:47→20:45)
[2019-05-09 11:11] LABS: Bedside Glucose 209 mg/dL (70-110)
--- NOTE | 2019-05-09 12:51 | NURSING ---
Pt is out of the building for an appt in [place]. wound VAC will be applied to the left foot when patient returns.
--- NOTE | 2019-05-09 14:41 | NURSING ---
Patient left for appointment at 0490
[2019-05-09 16:00] VITALS: BP 146/72; PULSE 91; RESP 20; TEMP 36.9; O2SAT 97
[2019-05-09 19:00] LABS: Bedside Glucose 230 mg/dL (70-110)
[2019-05-09 20:13] VITALS: BP 146/72; PULSE 91
[2019-05-09] MEDS: Senna/Docusate Sodium 1 Tablet PO (20:16)
[2019-05-09] MEDS: Paroxetine 20 MG Tablet PO (20:17)
[2019-05-09] MEDS: Atorvastatin Calcium 80 MG Tablet PO (20:17)
[2019-05-09] MEDS: MELATONIN 10 MG TABLET PO (20:45)
[2019-05-09 21:16] LABS: Bedside Glucose 271 mg/dL (70-110)
[2019-05-09] MEDS: Zolpidem Tartrate 5 MG Tablet PO (22:02)
[2019-05-09] MEDS: Glycerin/Hypromellose/PEG400 15 ml Bottle EACH EYE (22:05)
[2019-05-10] MEDS: guaiFENesin 1,200 MG Tablet 1200 MG PO ×2 (05:32→17:49)
[2019-05-10] MEDS: Ascorbic Acid 500 MG Tablet PO (05:32)
[2019-05-10] MEDS: Lisinopril 5 MG Tablet PO (05:32)
[2019-05-10] MEDS: Pramipexole Di-HCl 1 MG Tablet 1.5 MG PO ×2 (05:32→17:48)
[2019-05-10] MEDS: Senna/Docusate Sodium 1 Tablet PO ×2 (05:32→17:49)
[2019-05-10] MEDS: Enoxaparin 40 MG/0.4 ML Syringe SC (05:32)
[2019-05-10 05:33] VITALS: BP 143/78; PULSE 70
[2019-05-10] MEDS: Metoprolol Tartrate 25 MG Tablet 12.5 MG PO ×2 (05:33→17:50)
[2019-05-10] MEDS: Clopidogrel Bisulfate 75 MG Tablet PO (05:34)
[2019-05-10] MEDS: Glycerin/Hypromellose/PEG400 15 ml Bottle EACH EYE (05:42)
[2019-05-10 05:52] LABS: Absolute Lymphocyte Count 1.52 X10^3/uL (0.83-4.51); Absolute Neutrophil Count 6.3 X10^3/uL (2.0-7.7); Basophil# 0.04 X10^3/uL; Basophil% 0.5 % (0-1); Eosinophil# 0.15 X10^3/uL; Eosinophils% 1.8 % (0-5); Hematocrit 34.9 % (37-47); Hemoglobin 10.9 g/dL (12.0-15.0); Lymphocyte # 1.52 X10^3/ul (4.0); Lymphocyte % 17.9 % (19-41); Mean Corp Hgb Conc 31.2 g/dL (32-36); Mean Corpuscular Hgb 27.5 pg (27.0-32.0); Mean Corpuscular Volume 88.1 fL (81-99); Mean Platelet Vol. 10.9 fl (6.2-12.0); Monocyte# 0.46 X10^3/uL; Monocyte% 5.4 % (0-10); Neutrophil # 6.27 X10^3/uL (2.7-7.7); Neutrophil % 73.9 % (47-70); Platelet Count 325 K/mm3 (150-450); RBC Distribution Width CV 15.9 % (11.6-14.6); RBC Distribution Width SD 51.2 fl (35.1-43.9); Red Blood Count 3.96 M/mm3 (4.2-5.4); White Blood Count 8.5 K/mm3 (4.4-11.0)
[2019-05-10 06:06] LABS: Anion Gap 8 (5-15); BUN 54 mg/dL (7-18); BUN/Creat Ratio 52.4 RATIO (10-20); Calcium,Total 8.9 mg/dL (8.5-10.1); Chloride 108 mmol/L (98-107); Creatinine, Serum 1.03 mg/dL (0.55-1.02); EST Glomerular Filtration Rate 59 mL/min (>60); Est Glom Filt Rate - Afr Amer 72 mL/min (>60); Estimated Creatinine Clearance 59.13 ml/min; Glucose 219 mg/dL (74-106); Potassium 4.7 mmol/L (3.5-5.1); Sodium Level 138 mmol/L (136-145)
[2019-05-10 06:32] LABS: Erythrocyte Sedimentation Rate 83 mm/hr (0-30)
[2019-05-10] MEDS: oxyCODONE 5 MG Tablet PO ×3 (06:34→21:52)
[2019-05-10] MEDS: Menthol/Camphor/Phenol 225ml Bottle 1 APPLIC TOPICAL ×2 (06:35→16:24)
[2019-05-10 06:36] LABS: Bedside Glucose 209 mg/dL (70-110)
[2019-05-10] MEDS: Polyethylene Glycol 3350 17 GM PACKET PO (08:33)
[2019-05-10] MEDS: Gabapentin 300 MG Capsule 900 MG PO ×3 (08:33→17:48)
[2019-05-10] MEDS: Insulin Lispro 100 UNIT/ML INSULN.PEN 17 UNIT SC ×3 (08:33→17:46)
[2019-05-10] MEDS: Iron Polysaccharide Complex 150 MG CAPSULE PO (08:33)
[2019-05-10] MEDS: Multivitamins,Therapeutic Tablet 1 TABLET PO (08:33)
--- NOTE | 2019-05-10 09:57 | NURSING ---
Addendum entered by Mary Barton 05/10/19 12:42: Cool compress to LT eye. Eye drops added at this time. Original Note: notified eye DR, pt noted to have some slight hemmorhaging in LT lower eye of sclera and c/o pressure like pain in eyes. states the bleed is just from injection into eye yesterday. wants pt to use cool compresses to both eyes, use eye gtts that he gave her today like 6 times if needed. 1 gtt each eye 6times today. pt updated on all.
--- NOTE | 2019-05-10 10:56 | NURSING ---
Resident not in room at this time due to activities. Will give IV Rocephin when she returns.
[2019-05-10] MEDS: 0.9% NaCl Midline IV Flush IV ×2 (11:22→21:53)
[2019-05-10] MEDS: 0.9% NaCl IVPB Med Flush (250 mL) 15 ML IV (11:22)
[2019-05-10 11:30] LABS: Bedside Glucose 256 mg/dL (70-110)
[2019-05-10 16:00] VITALS: BP 132/62; PULSE 83; RESP 16; TEMP 36.9; O2SAT 99
[2019-05-10] MEDS: Acetaminophen 500 MG Tablet 1000 MG PO (16:25)
[2019-05-10 17:16] LABS: Bedside Glucose 173 mg/dL (70-110)
[2019-05-10 17:50] VITALS: PULSE 83
[2019-05-10 21:16] LABS: Bedside Glucose 203 mg/dL (70-110)
[2019-05-10] MEDS: Zolpidem Tartrate 5 MG Tablet PO (21:52)
[2019-05-10] MEDS: Atorvastatin Calcium 80 MG Tablet PO (21:55)
[2019-05-10] MEDS: MELATONIN 10 MG TABLET PO (21:56)
[2019-05-10] MEDS: Paroxetine 20 MG Tablet PO (21:56)
[2019-05-11 05:53] VITALS: BP 148/80; PULSE 74
[2019-05-11] MEDS: Metoprolol Tartrate 25 MG Tablet 12.5 MG PO ×2 (05:53→17:47)
[2019-05-11] MEDS: guaiFENesin 1,200 MG Tablet 1200 MG PO ×2 (05:54→17:48)
[2019-05-11] MEDS: Lisinopril 5 MG Tablet PO (05:55)
[2019-05-11] MEDS: Pramipexole Di-HCl 1 MG Tablet 1.5 MG PO ×2 (05:55→17:48)
[2019-05-11] MEDS: Ascorbic Acid 500 MG Tablet PO (05:55)
[2019-05-11] MEDS: Senna/Docusate Sodium 1 Tablet PO (05:55)
[2019-05-11] MEDS: Clopidogrel Bisulfate 75 MG Tablet PO (05:56)
[2019-05-11 06:15] LABS: Bedside Glucose 229 mg/dL (70-110)
[2019-05-11 08:15] LABS: Bedside Glucose 220 mg/dL (70-110)
[2019-05-11] MEDS: Calcium Carbonate 500 MG Tablet PO (08:17)
[2019-05-11] MEDS: Ondansetron ODT 4 MG Tablet PO (08:17)
[2019-05-11] MEDS: Iron Polysaccharide Complex 150 MG CAPSULE PO (08:19)
[2019-05-11] MEDS: Insulin Lispro 100 UNIT/ML INSULN.PEN 17 UNIT SC ×3 (08:19→17:47)
[2019-05-11] MEDS: Multivitamins,Therapeutic Tablet 1 TABLET PO (08:19)
[2019-05-11] MEDS: Gabapentin 300 MG Capsule 900 MG PO ×3 (08:19→17:47)
[2019-05-11] MEDS: 0.9% NaCl IVPB Med Flush (250 mL) 15 ML IV (10:44)
[2019-05-11 10:56] LABS: Bedside Glucose 167 mg/dL (70-110)
[2019-05-11] MEDS: oxyCODONE 5 MG Tablet PO ×2 (11:19→17:48)
[2019-05-11 15:47] VITALS: BP 149/83; PULSE 90; RESP 20; TEMP 37; O2SAT 97
[2019-05-11 17:21] LABS: Bedside Glucose 245 mg/dL (70-110)
[2019-05-11 17:47] VITALS: BP 149/83; PULSE 90
[2019-05-11 21:45] LABS: Bedside Glucose 276 mg/dL (70-110)
[2019-05-11] MEDS: Zolpidem Tartrate 5 MG Tablet PO (22:47)
[2019-05-11] MEDS: Paroxetine 20 MG Tablet PO (22:47)
[2019-05-11] MEDS: MELATONIN 10 MG TABLET PO (22:47)
[2019-05-11] MEDS: Atorvastatin Calcium 80 MG Tablet PO (22:47)
[2019-05-11 22:59] VITALS: RESP 18
[2019-05-12] MEDS: oxyCODONE 5 MG Tablet PO ×3 (00:02→21:18)
[2019-05-12] MEDS: Pramipexole Di-HCl 1 MG Tablet 1.5 MG PO ×2 (05:35→18:00)
[2019-05-12] MEDS: guaiFENesin 1,200 MG Tablet 1200 MG PO ×2 (05:35→18:00)
[2019-05-12] MEDS: Ascorbic Acid 500 MG Tablet PO (05:35)
[2019-05-12] MEDS: Clopidogrel Bisulfate 75 MG Tablet PO (05:35)
[2019-05-12] MEDS: Lisinopril 5 MG Tablet PO (05:35)
[2019-05-12 05:36] VITALS: BP 146/79; PULSE 79
[2019-05-12] MEDS: Metoprolol Tartrate 25 MG Tablet 12.5 MG PO ×2 (05:36→18:00)
[2019-05-12 06:51] LABS: Bedside Glucose 358 mg/dL (70-110)
[2019-05-12] MEDS: Gabapentin 300 MG Capsule 900 MG PO ×3 (07:55→18:00)
[2019-05-12] MEDS: Iron Polysaccharide Complex 150 MG CAPSULE PO (07:55)
[2019-05-12] MEDS: Multivitamins,Therapeutic Tablet 1 TABLET PO (07:55)
[2019-05-12] MEDS: Insulin Lispro 100 UNIT/ML INSULN.PEN 17 UNIT SC ×3 (07:56→17:58)
[2019-05-12] MEDS: 0.9% NaCl Midline IV Flush IV (10:34)
[2019-05-12] MEDS: Glycerin/Hypromellose/PEG400 15 ml Bottle EACH EYE (10:37)
[2019-05-12 11:21] LABS: Bedside Glucose 167 mg/dL (70-110)
[2019-05-12 16:00] VITALS: BP 133/74; PULSE 87; RESP 18; TEMP 36.3; O2SAT 98
[2019-05-12 17:10] LABS: Bedside Glucose 275 mg/dL (70-110)
[2019-05-12 18:00] VITALS: BP 133/74; PULSE 87
[2019-05-12] MEDS: Senna/Docusate Sodium 1 Tablet PO (18:01)
[2019-05-12] MEDS: Atorvastatin Calcium 80 MG Tablet PO (21:18)
[2019-05-12] MEDS: Paroxetine 20 MG Tablet PO (21:18)
[2019-05-12] MEDS: Menthol/Camphor/Phenol 225ml Bottle 1 APPLIC TOPICAL (21:19)
[2019-05-12] MEDS: MELATONIN 10 MG TABLET PO (21:22)
[2019-05-12 21:25] LABS: Bedside Glucose 119 mg/dL (70-110)
[2019-05-12] MEDS: Zolpidem Tartrate 5 MG Tablet PO (22:32)
[2019-05-13] MEDS: 0.9% NaCl Midline IV Flush IV ×2 (00:45→09:38)
[2019-05-13 06:24] VITALS: BP 135/77; PULSE 72
[2019-05-13] MEDS: Senna/Docusate Sodium 1 Tablet PO ×2 (06:24→16:46)
[2019-05-13] MEDS: guaiFENesin 1,200 MG Tablet 1200 MG PO ×2 (06:24→16:46)
[2019-05-13] MEDS: Metoprolol Tartrate 25 MG Tablet 12.5 MG PO ×2 (06:24→16:46)
[2019-05-13] MEDS: Clopidogrel Bisulfate 75 MG Tablet PO (06:24)
[2019-05-13] MEDS: Lisinopril 5 MG Tablet PO (06:24)
[2019-05-13] MEDS: Pramipexole Di-HCl 1 MG Tablet 1.5 MG PO ×2 (06:24→16:46)
[2019-05-13] MEDS: Ascorbic Acid 500 MG Tablet PO (06:24)
[2019-05-13 06:36] LABS: Bedside Glucose 225 mg/dL (70-110)
[2019-05-13] MEDS: Gabapentin 300 MG Capsule 900 MG PO ×3 (07:47→16:47)
[2019-05-13] MEDS: Multivitamins,Therapeutic Tablet 1 TABLET PO (07:47)
[2019-05-13] MEDS: Iron Polysaccharide Complex 150 MG CAPSULE PO (07:47)
[2019-05-13] MEDS: Insulin Lispro 100 UNIT/ML INSULN.PEN 17 UNIT SC ×3 (07:48→17:50)
[2019-05-13] MEDS: 0.9% NaCl IVPB Med Flush (250 mL) 15 ML IV (09:36)
[2019-05-13 10:51] LABS: Bedside Glucose 103 mg/dL (70-110)
[2019-05-13] MEDS: oxyCODONE 5 MG Tablet PO ×2 (12:18→21:37)
[2019-05-13] MEDS: Acetaminophen 500 MG Tablet 1000 MG PO ×2 (12:18→21:37)
[2019-05-13 16:00] VITALS: BP 137/78; PULSE 80; RESP 20; TEMP 36.8; O2SAT 96
[2019-05-13] MEDS: Glycerin/Hypromellose/PEG400 15 ml Bottle EACH EYE (16:44)
[2019-05-13 16:46] VITALS: PULSE 80
--- NOTE | 2019-05-13 16:52 | NURSING ---
Pt concerned about redness in left eye. Discussed with pt, pt states she has not been using cold compresses on eye regularly. Discussed use of eye gtts. PRN eye gtts used on eyes at this time.
[2019-05-13 17:40] LABS: Bedside Glucose 149 mg/dL (70-110)
[2019-05-13] MEDS: Paroxetine 20 MG Tablet PO (21:29)
[2019-05-13] MEDS: MELATONIN 10 MG TABLET PO (21:29)
[2019-05-13] MEDS: Atorvastatin Calcium 80 MG Tablet PO (21:29)
[2019-05-13] MEDS: Zolpidem Tartrate 5 MG Tablet PO (22:21)
[2019-05-13 22:46] LABS: Bedside Glucose 179 mg/dL (70-110)
[2019-05-14 00:01] LABS: Bedside Glucose 178 mg/dL (70-110)
[2019-05-14 05:16] VITALS: BP 142/74; PULSE 72
[2019-05-14] MEDS: Metoprolol Tartrate 25 MG Tablet 12.5 MG PO ×2 (05:16→18:05)
[2019-05-14] MEDS: Clopidogrel Bisulfate 75 MG Tablet PO (05:16)
[2019-05-14] MEDS: Ascorbic Acid 500 MG Tablet PO (05:16)
[2019-05-14] MEDS: Senna/Docusate Sodium 1 Tablet PO ×2 (05:16→18:06)
[2019-05-14] MEDS: Pramipexole Di-HCl 1 MG Tablet 1.5 MG PO ×2 (05:16→18:04)
[2019-05-14] MEDS: Polyethylene Glycol 3350 17 GM PACKET PO ×2 (05:16→07:49)
[2019-05-14] MEDS: guaiFENesin 1,200 MG Tablet 1200 MG PO ×2 (05:16→18:04)
[2019-05-14] MEDS: Lisinopril 5 MG Tablet PO (05:16)
[2019-05-14] MEDS: 0.9% NaCl Midline IV Flush IV ×3 (05:24→22:58)
[2019-05-14 06:25] LABS: Bedside Glucose 206 mg/dL (70-110)
[2019-05-14] MEDS: oxyCODONE 5 MG Tablet PO ×3 (07:46→22:54)
[2019-05-14] MEDS: Iron Polysaccharide Complex 150 MG CAPSULE PO (07:49)
[2019-05-14] MEDS: Gabapentin 300 MG Capsule 900 MG PO ×3 (07:49→18:04)
[2019-05-14] MEDS: Multivitamins,Therapeutic Tablet 1 TABLET PO (07:49)
[2019-05-14] MEDS: Acetaminophen 500 MG Tablet 1000 MG PO (07:55)
[2019-05-14] MEDS: Insulin Lispro 100 UNIT/ML INSULN.PEN 17 UNIT SC ×3 (08:02→18:02)
[2019-05-14] MEDS: 0.9% NaCl IVPB Med Flush (250 mL) 15 ML IV (10:36)
[2019-05-14 11:01] LABS: Bedside Glucose 158 mg/dL (70-110)
--- NOTE | 2019-05-14 13:38 | NURSING ---
talked with Dr Edgar this am and stated podiatry would be in to see patient today. will leave VAC in place at this time.
[2019-05-14 16:00] VITALS: BP 139/67; PULSE 88; RESP 20; TEMP 36.9; O2SAT 96
[2019-05-14 17:16] LABS: Bedside Glucose 274 mg/dL (70-110)
[2019-05-14 18:05] VITALS: BP 139/67; PULSE 88
[2019-05-14 21:51] LABS: Bedside Glucose 128 mg/dL (70-110)
--- NOTE | 2019-05-14 21:57 | PCM.DC ---
You will use the following diet at home:: No restrictions, Regular Your food should be the consistency of: Regular Your liquids should be the consistency of: Regular/Thin Discharge Activity: Return to Normal Activity, May Shower Weight Bearing Status: No weight bearing - Left lower extremity. Call your doctor if you observe: Fever of 101 or Higher, Inability to urinate, Inability to have a bowel movement, Shortness of breath, Chest pain, Uncontrolled pain Allergies/Adverse Reactions: Allergies Penicillins Allergy (Verified 04/27/19 12:25) Shortness of breath metronidazole Adverse Reaction (Verified 04/27/19 12:25) Nausea OXYCONTIN Allergy (Uncoded 04/27/19 12:25) Shortness of breath Medications to take at Discharge Ascorbic Acid [Vitamin C] 500 mg PO DAILY 09/20/18 Gabapentin [Neurontin] 900 mg PO TIDCM 09/20/18 Atorvastatin Calcium [Lipitor] 80 mg PO QHS 09/23/18 Lisinopril [Zestril] 5 mg PO DAILY 09/23/18 Metoprolol Tartrate [Lopressor (beta kunal)] 12.5 mg PO BID 09/23/18 Clopidogrel Bisulfate [Plavix] 75 mg PO DAILY 12/21/18 Calcium Carbonate [Tums] 500 mg PO Q4H PRN PRN 04/02/19 Guaifenesin [Mucinex] 1,200 mg PO BID 04/11/19 Melatonin 3 mg PO QHS PRN PRN tab 04/11/19 Multivitamins,Therapeutic [Multivitamin] 1 tab PO DAILYCM 04/11/19 Nutritional Supplement [Ted - ORANGE FLAVOR] 1 packet PO BIDCM 04/11/19 Zinc Sulfate (50mg elemental) [Zinc Sulfate] 220 mg PO DAILY 04/11/19 Acetaminophen [Tylenol] 1,000 mg PO Q6H PRN PRN tab 05/14/19 Insulin Glargine [Lantus SoloStar Pen] 25 units SUBCUT BID #1 pen 05/14/19 Insulin Lispro [Humalog KwikPen] 17 unit SUBCUT TIDCM #1 insuln.pen 05/14/19 Iron Polysaccharide Complex [Ferrex 150] 150 mg PO DAILYCM #30 cap 05/14/19 Mineral Oil/Petrolatum,White [Eucerin] 1 applic TOPICAL BID PRN PRN jar 08/05/19 Nutritional Supplement [Ted - [place] FLAVOR] 1 packet PO BIDCM #60 packet 05/14/19 Oxycodone [Oxyir] 5 mg PO Q4H PRN PRN 7 Days #42 tab 05/14/19 Paroxetine [Paxil] 20 mg PO QHS #30 tab 05/14/19 Peg 400/Hypromellose/Glycerin [Artificial Tears] 1 - 2 drp EACH EYE Q1H PRN bottle 05/14/19 Pramipexole Di-HCl [Mirapex] 1.5 mg PO BID #90 tab 05/14/19 Zolpidem Tartrate [Ambien] 5 mg PO QHS PRN PRN #30 tab 05/14/19 The following prescriptions were given: Zolpidem Tartrate [Ambien] 5 mg PO QHS PRN PRN #30 tab PRN Reason: Insomnia Prescription Printed Iron Polysaccharide Complex [Ferrex 150] 150 mg PO DAILYCM #30 cap Transmission Status: Pending to [facility]/pharmacy #[id number] Insulin Lispro [Humalog KwikPen] 17 unit SUBCUT TIDCM #1 insuln.pen Transmission Status: Pending to [facility]/pharmacy #[id number] Nutritional Supplement [Ted - ORANGE FLAVOR] 1 packet PO BIDCM #60 packet Transmission Status: Pending to [facility]pharmacy #[id number] Insulin Glargine [Lantus SoloStar Pen] 25 units SUBCUT BID #1 pen Transmission Status: Pending to [facility]pharmacy #[id number] Pramipexole Di-HCl [Mirapex] 1.5 mg PO BID #90 tab Transmission Status: Pending to [facility]pharmacy [id number] Oxycodone [Oxyir] 5 mg PO Q4H PRN PRN 7 Days #42 tab PRN Reason: Moderate Pain (4-6/10) Prescription Printed Paroxetine [Paxil] 20 mg PO QHS #30 tab Transmission Status: Pending to [facility]acy [id number] Primary Care Physician: Raúl Eric MD [Primary Care Provider] - Please follow up with your Primary Care Physician in: 1 week. Test Results: Test results from this visit will be discussed in further detail at your follow-up appointment, if applicable. Please Follow Up With: Saraavnan Jean Bapitste MD When: 2 weeks. Please Follow Up With: Monica Moore NP-C When: Cancel. Please Follow Up With: Dr. Crawford ([facility]) When: 2 weeks. Please Follow Up With: Scot Britton When: 2 weeks. Proposed Discharge Date: 05/22/19
--- NOTE | 2019-05-14 21:59 | DS.PCM_ITS ---
Discharge Date and Diagnosis Date of Admission: 04/11/19 Date of Discharge: 05/22/19 - Secondary Discharge Diagnosis Chronic Problems (Last Reviewed 05/08/19 @ 15:41 by Becky Sanford) Essential (primary) hypertension (Chronic) Ulcer of right lower extremity with fat layer exposed (Chronic) Chronic ulcer of left foot with fat layer exposed (Chronic) Ischemic cardiomyopathy (Chronic) EF 45% Atherosclerosis of [place] coronary artery of [place] heart without angina pectoris (Chronic) PCI-DARA mid LAD w/ 2.25 x 16 mm Promus Synergy, DARA prox LAD w/ 2.5 x 12 mm Promus Synergy 09/21/2018 HLD (hyperlipidemia) (Chronic) Hospital Course and Treatment Imaging Results: 04/18/19 14:59 Diet: Cardiac: Calorie-Controlled Is pt able to select menu?: Yes How many daily calories?: 1500 calorie Clinical Impression(s) from Imaging Studies Shoulder X-Ray 05/07/19 08:26 IMPRESSION: The tip of a PICC line catheter is seen in the axillary region. Electronically Signed: Ronnie Saavedra, at 13:31 EDT , Service support , Labs (Last 48 Hours) 05/13/19 05/13/19 05/13/19 06:23 10:41 17:30 POC Glucose 225 H 103 149 H 05/13/19 05/13/19 05/14/19 22:37 23:53 06:05 POC Glucose 179 H 178 H 206 H 05/14/19 05/14/19 05/14/19 10:46 17:01 21:05 POC Glucose 158 H 274 H 128 H Consultations 04/11/19 20:25 Consult: Onc/Wound/supervisor bridges and buildings Routine Comment: Reason for Consult:: Wound vac to LT foot Operations: None, - Procedures: None Summary of Care Provided: The patient is a 53 year old Female with below past medical history hospitalized for left foot osteomyelitis, cultures growing MSSA, GBS, underwent debridement 04/09/[address] Guadarrama, admitted to TCU with debility, here for rehabilitation, strengthening, intravenous antibiotics, wound care, prior to discharge home alone. On TCU, Lexapro changed to Paroxetine for increase anxiety. 05/08/2019 Resident underwent left subacromial bursa steroid injection for left rotator cuff strain. Discharge home alone, [facility]. - Physical Exam Vital Signs Temp Pulse Resp BP Pulse Ox 98.4 F 88 20 H 139/67 H 96 05/14/19 16:00 05/14/19 18:05 05/14/19 16:00 05/14/19 18:05 05/14/19 16:00 Oxygen Delivery Method Room Air Weight: 88.564 kg Body Mass Index (BMI) 29.7 Finger Stick Blood Glucose 182 Intake and Output for Last 24 Hours 05/12/19 05/13/19 05/14/19 23:59 23:59 23:59 Intake Total 1200 / 1200 1160 / 1160 600 / 600 Balance 1200 / 1200 1160 / 1160 600 / 600 POC Glucose 05/14/19 05/14/19 05/14/19 21:05 17:01 10:46 POC Glucose 128 H 274 H 158 H 05/14/19 05/13/19 05/13/19 06:05 23:53 22:37 POC Glucose 206 H 178 H 179 H Discharge Diet: No Restrictions Discharge Activity: Return to Normal Activity, May Shower Weight Bearing Status: No weight bearing - Left lower extremity. Call your doctor if you observe: Fever of 101 or Higher, Inability to urinate, Inability to have a bowel movement, Shortness of breath, Chest pain, Uncontrolled pain Home Medications: Medications to take at Discharge Ascorbic Acid [Vitamin C] 500 mg PO DAILY 09/20/18 Gabapentin [Neurontin] 900 mg PO TIDCM 09/20/18 Atorvastatin Calcium [Lipitor] 80 mg PO QHS 09/23/18 Lisinopril [Zestril] 5 mg PO DAILY 09/23/18 Metoprolol Tartrate [Lopressor (beta kunal)] 12.5 mg PO BID 09/23/18 Clopidogrel Bisulfate [Plavix] 75 mg PO DAILY 12/21/18 Calcium Carbonate [Tums] 500 mg PO Q4H PRN PRN 04/02/19 Guaifenesin [Mucinex] 1,200 mg PO BID 04/11/19 Melatonin 3 mg PO QHS PRN PRN tab 04/11/19 Multivitamins,Therapeutic [Multivitamin] 1 tab PO DAILYCM 04/11/19 Nutritional Supplement [Ted - ORANGE FLAVOR] 1 packet PO BIDCM 04/11/19 Zinc Sulfate (50mg elemental) [Zinc Sulfate] 220 mg PO DAILY 04/11/19 Acetaminophen [Tylenol] 1,000 mg PO Q6H PRN PRN tab 05/14/19 Insulin Glargine [Lantus SoloStar Pen] 25 units SUBCUT BID #1 pen 05/14/19 Insulin Lispro [Humalog KwikPen] 17 unit SUBCUT TIDCM #1 insuln.pen 05/14/19 Iron Polysaccharide Complex [Ferrex 150] 150 mg PO DAILYCM #30 cap 05/14/19 Mineral Oil/Petrolatum,White [Eucerin] 1 applic TOPICAL BID PRN PRN jar 05/14/19 Nutritional Supplement [Ted - ORANGE FLAVOR] 1 packet PO BIDCM #60 packet 05/14/19 Oxycodone [Oxyir] 5 mg PO Q4H PRN PRN 7 Days #42 tab 05/14/19 Paroxetine [Paxil] 20 mg PO QHS #30 tab 05/14/19 Peg 400/Hypromellose/Glycerin [Artificial Tears] 1 - 2 drp EACH EYE Q1H PRN bottle 05/14/19 Pramipexole Di-HCl [Mirapex] 1.5 mg PO BID #90 tab 05/14/19 Zolpidem Tartrate [Ambien] 5 mg PO QHS PRN PRN #30 tab 05/14/19 Following Prescrptions Were Given to Patient: Zolpidem Tartrate [Ambien] 5 mg PO QHS PRN PRN #30 tab PRN Reason: Insomnia Prescription Printed Iron Polysaccharide Complex [Ferrex 150] 150 mg PO DAILYCM #30 cap Transmission Status: Pending to [id number] Insulin Lispro [Humalog KwikPen] 17 unit SUBCUT TIDCM #1 insuln.pen Transmission Status: Pending to [id number] Nutritional Supplement [Ted - ORANGE FLAVOR] 1 packet PO BIDCM #60 packet Transmission Status: Pending to [id number] Insulin Glargine [Lantus SoloStar Pen] 25 units SUBCUT BID #1 pen Transmission Status: Pending to [id number] Pramipexole Di-HCl [Mirapex] 1.5 mg PO BID #90 tab Transmission Status: Pending to [id number] Oxycodone [Oxyir] 5 mg PO Q4H PRN PRN 7 Days #42 tab PRN Reason: Moderate Pain (4-6/10) Prescription Printed Paroxetine [Paxil] 20 mg PO QHS #30 tab Transmission Status: Pending to [id number] Primary Care Physician: Raúl Eric MD [Primary Care Provider] - Please follow up with your Primary Care Physician in: 1 week. Please Follow Up With: Saravanan Jean Baptiste MD When: 2 weeks. Please Follow Up With: Monica Moore NP-C When: Cancel. Please Follow Up With: Dr. Crawford ([facility]) When: 2 weeks. Please Follow Up With: Scot Britton When: 2 weeks. Please Follow Up With: Jefe Guadarrama DPM When: 1 week. Disposition: Home with Home Health Minutes spent on discharge:: 35 Patient Condition:: Stable Medical Necessity - Tobacco Use Smoking Status: Never smoker Tobacco Use: Non-smoker Meaningful Use Info Meaningful Use Diagnoses (Choose all that apply): None applicable
--- NOTE | 2019-05-14 22:02 | PCM.PN.HH ---
Home Health Note - Plan Problems: Complete List of Medical Problems (Last Reviewed 05/08/19 @ 15:41 by Becky Sanford) Essential (primary) hypertension (Chronic) Ulcer of right lower extremity with fat layer exposed (Chronic) Chronic ulcer of left foot with fat layer exposed (Chronic) Ischemic cardiomyopathy (Chronic) Atherosclerosis of [place] coronary artery of [place] heart without angina pectoris (Chronic) HLD (hyperlipidemia) (Chronic) - Requirements and Reasons Disciplines Needed/Ordered: Group Home Reason for Disciplines: Disease Specific Monitoring/education, Medication Management/Knowledge Deficit, Wound Care, Drainage Devices/Tube Care Related To: Change in Medical Treatment Plan, Physical Impairments, Fall Risk Patient is unable to leave the home: Without Aid of Supportive Devices (crutches, cane, wheelchair, walker), Without the assistance of another person Medically Contraindicated related to: Weight Bearing Status
[2019-05-14] MEDS: Paroxetine 20 MG Tablet PO (22:54)
[2019-05-14] MEDS: MELATONIN 10 MG TABLET PO (22:54)
[2019-05-14] MEDS: Zolpidem Tartrate 5 MG Tablet PO (22:54)
[2019-05-14] MEDS: Atorvastatin Calcium 80 MG Tablet PO (22:54)
[2019-05-14] MEDS: Menthol/Camphor/Phenol 225ml Bottle 1 APPLIC TOPICAL (22:56)
[2019-05-14 23:46] LABS: Bedside Glucose 238 mg/dL (70-110)
[2019-05-15] MEDS: Menthol/Camphor/Phenol 225ml Bottle 1 APPLIC TOPICAL ×2 (05:15→22:23)
[2019-05-15 05:22] VITALS: BP 125/70; PULSE 81
[2019-05-15] MEDS: Lisinopril 5 MG Tablet PO (05:22)
[2019-05-15] MEDS: Senna/Docusate Sodium 1 Tablet PO ×2 (05:22→17:47)
[2019-05-15] MEDS: Ascorbic Acid 500 MG Tablet PO (05:22)
[2019-05-15] MEDS: Metoprolol Tartrate 25 MG Tablet 12.5 MG PO ×2 (05:22→17:46)
[2019-05-15] MEDS: guaiFENesin 1,200 MG Tablet 1200 MG PO ×2 (05:22→17:47)
[2019-05-15] MEDS: Clopidogrel Bisulfate 75 MG Tablet PO (05:22)
[2019-05-15] MEDS: Pramipexole Di-HCl 1 MG Tablet 1.5 MG PO ×2 (05:23→17:46)
[2019-05-15] MEDS: Ondansetron ODT 4 MG Tablet PO (05:30)
[2019-05-15] MEDS: oxyCODONE 5 MG Tablet PO ×3 (06:34→21:40)
[2019-05-15 06:41] LABS: Bedside Glucose 249 mg/dL (70-110)
[2019-05-15] MEDS: Multivitamins,Therapeutic Tablet 1 TABLET PO (08:23)
[2019-05-15] MEDS: Iron Polysaccharide Complex 150 MG CAPSULE PO (08:23)
[2019-05-15] MEDS: Insulin Lispro 100 UNIT/ML INSULN.PEN 17 UNIT SC ×2 (08:23→17:45)
[2019-05-15] MEDS: Gabapentin 300 MG Capsule 900 MG PO ×3 (08:23→17:45)
[2019-05-15] MEDS: 0.9% NaCl IVPB Med Flush (250 mL) 15 ML IV (09:25)
[2019-05-15] MEDS: Calcium Carbonate 500 MG Tablet PO (09:25)
--- NOTE | 2019-05-15 10:43 | NURSING ---
Pt states that podiatry was not in yesterday to see her and the VAC was not changed. VAC dressing changed at this time. pt tolerated well. wound dimensions are greatly improved. see wound photos.
--- NOTE | 2019-05-15 11:01 | NURSING ---
wound photo: left foot
--- NOTE | 2019-05-15 11:02 | NURSING ---
wound photo: left lateral foot
--- NOTE | 2019-05-15 11:52 | NURSING ---
BLOOD SUGAR 76 AT LUNCH. HELD INSULIN, WILL UPDATE DR. TORRES. R' HAS NOT ORDERED LUNCH TRAY AND ENCOURAGED TO DO SO AT THIS TIME. DENIES ANY S/SX OF HYPOGLYCEMIA. WILL MONITOR.
--- NOTE | 2019-05-15 14:27 | CASEMGMT ---
Social Work Spoke with pt to confirm discharge plans. Pt will discharge home on 05/22 with wound vac and [facility]. Pt will f/u with wound clinic. No DME needs. Pt reports no other needs. Martha Barahona, [employer]CHNICIAN
[2019-05-15 17:30] LABS: Bedside Glucose 218 mg/dL (70-110)
[2019-05-15 17:46] VITALS: PULSE 98
[2019-05-15 21:21] LABS: Bedside Glucose 233 mg/dL (70-110)
[2019-05-15] MEDS: Atorvastatin Calcium 80 MG Tablet PO (21:41)
[2019-05-15] MEDS: MELATONIN 10 MG TABLET PO (21:41)
[2019-05-15] MEDS: Paroxetine 20 MG Tablet PO (21:42)
[2019-05-15] MEDS: 0.9% NaCl Midline IV Flush IV (21:43)
[2019-05-15] MEDS: Zolpidem Tartrate 5 MG Tablet PO (22:22)
[2019-05-16] MEDS: oxyCODONE 5 MG Tablet PO ×3 (06:42→20:14)
[2019-05-16 06:44] VITALS: BP 139/86; PULSE 80
[2019-05-16] MEDS: Metoprolol Tartrate 25 MG Tablet 12.5 MG PO ×2 (06:44→17:24)
[2019-05-16] MEDS: Ascorbic Acid 500 MG Tablet PO (06:44)
[2019-05-16] MEDS: Pramipexole Di-HCl 1 MG Tablet 1.5 MG PO ×2 (06:44→17:24)
[2019-05-16] MEDS: Clopidogrel Bisulfate 75 MG Tablet PO (06:44)
[2019-05-16] MEDS: guaiFENesin 1,200 MG Tablet 1200 MG PO ×2 (06:44→17:23)
[2019-05-16] MEDS: Lisinopril 5 MG Tablet PO (06:44)
[2019-05-16] MEDS: Senna/Docusate Sodium 1 Tablet PO ×2 (06:45→17:23)
[2019-05-16 06:46] LABS: Bedside Glucose 228 mg/dL (70-110)
[2019-05-16 08:11] LABS: Bedside Glucose 77 mg/dL (70-110)
[2019-05-16 08:11] LABS: Bedside Glucose 76 mg/dL (70-110)
[2019-05-16] MEDS: Multivitamins,Therapeutic Tablet 1 TABLET PO (08:56)
[2019-05-16] MEDS: Insulin Lispro 100 UNIT/ML INSULN.PEN 17 UNIT SC ×2 (08:56→11:35)
[2019-05-16] MEDS: Gabapentin 300 MG Capsule 900 MG PO ×3 (08:56→17:23)
[2019-05-16] MEDS: Iron Polysaccharide Complex 150 MG CAPSULE PO (08:56)
[2019-05-16] MEDS: 0.9% NaCl IVPB Med Flush (250 mL) 15 ML IV (10:30)
[2019-05-16] MEDS: 0.9% NaCl Midline IV Flush IV (10:43)
[2019-05-16 11:06] LABS: Bedside Glucose 142 mg/dL (70-110)
[2019-05-16] MEDS: Menthol/Camphor/Phenol 225ml Bottle 1 APPLIC TOPICAL ×3 (11:35→20:15)
[2019-05-16 12:51] LABS: Bedside Glucose 35 mg/dL (70-110)
[2019-05-16 13:10] LABS: Bedside Glucose 103 mg/dL (70-110)
--- NOTE | 2019-05-16 13:32 | NURSING ---
Pt sitting up in bed and stating, I just don't feel right. BS checked, 35, OJ given. This nurse stayed with pt. Pt. stating she is feeling much better after about 10 mins. BS 103 when rechecked. Cont to monitor.
--- NOTE | 2019-05-16 14:49 | NURSING ---
Home VAC is approved and in the patient's room to be placed before patient is discharged home. nursing staff and patient aware the VAC is in room. This nurse is off until 05/23/19.
[2019-05-16 16:00] VITALS: BP 116/72; PULSE 78; RESP 20; TEMP 36.7; O2SAT 97
[2019-05-16 17:11] LABS: Bedside Glucose 98 mg/dL (70-110)
[2019-05-16 17:24] VITALS: BP 116/72; PULSE 78
[2019-05-16] MEDS: Atorvastatin Calcium 80 MG Tablet PO (20:16)
[2019-05-16] MEDS: Paroxetine 20 MG Tablet PO (20:16)
[2019-05-16] MEDS: MELATONIN 10 MG TABLET PO (20:16)
[2019-05-16 21:06] LABS: Bedside Glucose 163 mg/dL (70-110)
[2019-05-16] MEDS: Zolpidem Tartrate 5 MG Tablet PO (23:58)
[2019-05-17] MEDS: Ascorbic Acid 500 MG Tablet PO (05:41)
[2019-05-17] MEDS: Senna/Docusate Sodium 1 Tablet PO ×2 (05:41→21:54)
[2019-05-17] MEDS: Pramipexole Di-HCl 1 MG Tablet 1.5 MG PO ×2 (05:42→21:55)
[2019-05-17 05:43] VITALS: BP 124/64; PULSE 77
[2019-05-17] MEDS: guaiFENesin 1,200 MG Tablet 1200 MG PO ×2 (05:43→21:54)
[2019-05-17] MEDS: Metoprolol Tartrate 25 MG Tablet 12.5 MG PO (05:43)
[2019-05-17] MEDS: Lisinopril 5 MG Tablet PO (05:43)
[2019-05-17] MEDS: Clopidogrel Bisulfate 75 MG Tablet PO (05:44)
[2019-05-17 06:15] LABS: Absolute Lymphocyte Count 1.61 X10^3/uL (0.83-4.51); Absolute Neutrophil Count 7.3 X10^3/uL (2.0-7.7); Basophil# 0.04 X10^3/uL; Basophil% 0.4 % (0-1); Eosinophil# 0.13 X10^3/uL; Eosinophils% 1.4 % (0-5); Hematocrit 39.1 % (37-47); Hemoglobin 11.8 g/dL (12.0-15.0); Lymphocyte # 1.61 X10^3/ul (4.0); Lymphocyte % 16.8 % (19-41); Mean Corp Hgb Conc 30.2 g/dL (32-36); Mean Corpuscular Hgb 26.7 pg (27.0-32.0); Mean Corpuscular Volume 88.5 fL (81-99); Mean Platelet Vol. 10.7 fl (6.2-12.0); Monocyte# 0.44 X10^3/uL; Monocyte% 4.6 % (0-10); Neutrophil # 7.31 X10^3/uL (2.7-7.7); Neutrophil % 76.5 % (47-70); Platelet Count 364 K/mm3 (150-450); RBC Distribution Width CV 15.8 % (11.6-14.6); RBC Distribution Width SD 50.9 fl (35.1-43.9); Red Blood Count 4.42 M/mm3 (4.2-5.4); White Blood Count 9.6 K/mm3 (4.4-11.0)
[2019-05-17 06:28] LABS: Anion Gap 9 (5-15); BUN 60 mg/dL (7-18); BUN/Creat Ratio 56.6 RATIO (10-20); Calcium,Total 9.1 mg/dL (8.5-10.1); Chloride 106 mmol/L (98-107); Creatinine, Serum 1.06 mg/dL (0.55-1.02); EST Glomerular Filtration Rate 57 mL/min (>60); Est Glom Filt Rate - Afr Amer 70 mL/min (>60); Estimated Creatinine Clearance 57.46 ml/min; Glucose 197 mg/dL (74-106); Potassium 4.5 mmol/L (3.5-5.1); Sodium Level 140 mmol/L (136-145)
[2019-05-17 06:40] LABS: Erythrocyte Sedimentation Rate 87 mm/hr (0-30)
[2019-05-17] MEDS: oxyCODONE 5 MG Tablet PO ×3 (06:48→21:54)
--- NOTE | 2019-05-17 06:50 | NURSING ---
Addendum entered by Vivian Chand 05/17/19 10:26: Dr Hassan updated, new order to consult Dr Glynn. office notified of consult order and that plant is for pt to go home on 05/22 Original Note: Into give patient her lantus this morning. Patient by sink washing up in tears. When asked what is wrong patient states I can hardly get ready by myself my left shoulder pain is so bad. It feels like my other shoulder did when I had to get rotator cuff surgery. Will update Dr. Hassan
[2019-05-17 06:51] LABS: Bedside Glucose 201 mg/dL (70-110)
[2019-05-17] MEDS: Insulin Lispro 100 UNIT/ML INSULN.PEN 13 UNIT SC ×2 (08:37→21:56)
[2019-05-17] MEDS: Gabapentin 300 MG Capsule 900 MG PO ×3 (08:38→21:55)
[2019-05-17] MEDS: Iron Polysaccharide Complex 150 MG CAPSULE PO (08:38)
[2019-05-17] MEDS: Polyethylene Glycol 3350 17 GM PACKET PO (08:38)
[2019-05-17] MEDS: Multivitamins,Therapeutic Tablet 1 TABLET PO (08:38)
--- NOTE | 2019-05-17 10:37 | PN.ID_ITS ---
Subjective: Foot improving, no fever, c/o shoulder pain and mild nausea due to that. - Physical Exam General: Alert, Cooperative, No apparent distress Lungs: Clear to auscultation, Normal air movement Cardiovascular: Regular rate, Regular Rhythm Abdomen: Soft, Non Tender, Non-Distended Skin: Ulcer/ Wound - foot wrapped Vital Signs Temp Pulse Resp BP Pulse Ox 98.1 F 77 20 H 124/64 H 97 05/16/19 16:00 05/17/19 05:43 05/16/19 16:00 05/17/19 05:43 05/16/19 16:00 Oxygen Delivery Method Room Air Weight: 88.564 kg Body Mass Index (BMI) 29.7 Finger Stick Blood Glucose 182 Intake and Output for Last 24 Hours 05/15/19 05/16/19 05/17/19 23:59 23:59 23:59 Intake Total 907 / 907 960 / 960 240 / 240 Balance 907 / 907 960 / 960 240 / 240 Laboratory Tests Past 24 Hrs 05/17/19 05/17/19 05:36 05:36 WBC 9.6 RBC 4.42 Hgb 11.8 L Hct 39.1 MCV 88.5 MCH 26.7 L MCHC 30.2 L RDW Std Deviation 50.9 H RDW Coeff of [place] 15.8 H Plt Count 364 MPV 10.7 Immature Gran % (Auto) 0.300 Neut % (Auto) 76.5 H Lymph % (Auto) 16.8 L [place] % (Auto) 4.6 Eos % (Auto) 1.4 Baso % (Auto) 0.4 Absolute Neuts (auto) 7.3 Absolute Lymphs (auto) 1.61 Total Counted Not Reportable ESR 87 H Sodium 140 Potassium 4.5 Chloride 106 Carbon Dioxide 25.0 Anion Gap 9 BUN 60 H Creatinine 1.06 H Estim Creat Clear Calc 57.46 Est GFR (MDRD) Af Amer 70 Est GFR (MDRD) Non-Af 57 L BUN/Creatinine Ratio 56.6 H Glucose 197 H Calcium 9.1 POC Glucose 05/17/19 05/16/19 05/16/19 06:30 20:57 17:02 POC Glucose 201 H 163 H 98 05/16/19 05/16/19 05/16/19 13:04 12:47 10:51 POC Glucose 103 35 L* 142 H Medical Necessity - Tobacco Use Smoking Status: Never smoker Tobacco Use: Non-smoker Route of nutrition/ use of supplements: [] Nutritional Intake: [] IV Site: [] Tirado Catheter: [] - Assessment/Plan Antibiotics: [] Assessment/Plan: [] L DM foot suspected osteo - recent cx with MSSA and GBS. She has tolerated cephalosporins with no issue in the past. Bone bx neg. Plan on 6 weeks of iv abx stop date 05/21/19. Weekly bmp, cbc, and esr while on iv abx. Developed n/v with cefazolin, 04/30 change to ceftriaxone with same stop date which has helped. Will follow
[2019-05-17] MEDS: 0.9% NaCl IVPB Med Flush (250 mL) 15 ML IV (10:43)
[2019-05-17] MEDS: 0.9% NaCl Midline IV Flush IV ×2 (10:43→21:54)
[2019-05-17 11:06] LABS: Bedside Glucose 180 mg/dL (70-110)
--- NOTE | 2019-05-17 12:21 | NURSING ---
Pt requesting ALEX to see sister at [facility], eun she is in CCU not doing well. Dr. Hassan approved, with pt saying she will be back by 2300 or before. Wound vac removed and wtd dressing applied to pt lt ankle. Taken out by daughter in WC.
--- NOTE | 2019-05-17 12:46 | NURSING ---
Barry Ortiz PA-c from [facility] her to see pt for consult, unable d/t pt being ALEX. He states he will be back tomorrow to see pt.
[2019-05-17 16:00] VITALS: BP 136/76; PULSE 97; RESP 20; TEMP 36.1; O2SAT 98
[2019-05-17 21:41] LABS: Bedside Glucose 462 mg/dL (70-110)
[2019-05-17] MEDS: Atorvastatin Calcium 80 MG Tablet PO (21:54)
[2019-05-17] MEDS: Paroxetine 20 MG Tablet PO (21:54)
[2019-05-17] MEDS: MELATONIN 10 MG TABLET PO (21:55)
[2019-05-17] MEDS: Zolpidem Tartrate 5 MG Tablet PO (22:53)
[2019-05-18 06:32] VITALS: BP 143/66; PULSE 79
[2019-05-18] MEDS: Metoprolol Tartrate 25 MG Tablet 12.5 MG PO ×2 (06:32→17:33)
[2019-05-18] MEDS: Senna/Docusate Sodium 1 Tablet PO ×2 (06:32→17:33)
[2019-05-18] MEDS: guaiFENesin 1,200 MG Tablet 1200 MG PO ×2 (06:32→17:32)
[2019-05-18] MEDS: Lisinopril 5 MG Tablet PO (06:32)
[2019-05-18] MEDS: Ascorbic Acid 500 MG Tablet PO (06:32)
[2019-05-18] MEDS: Clopidogrel Bisulfate 75 MG Tablet PO (06:32)
[2019-05-18] MEDS: Pramipexole Di-HCl 1 MG Tablet 1.5 MG PO ×2 (06:32→17:32)
[2019-05-18 06:56] LABS: Bedside Glucose 279 mg/dL (70-110)
--- NOTE | 2019-05-18 08:22 | MDS.RN ---
Information for the mds was obtained from review of the clinical record, interview of resident, staff, and direct observation of resident's care.
[2019-05-18] MEDS: Gabapentin 300 MG Capsule 900 MG PO ×3 (09:01→17:33)
[2019-05-18] MEDS: Iron Polysaccharide Complex 150 MG CAPSULE PO (09:02)
[2019-05-18] MEDS: Multivitamins,Therapeutic Tablet 1 TABLET PO (09:02)
[2019-05-18] MEDS: Insulin Lispro 100 UNIT/ML INSULN.PEN 13 UNIT SC ×3 (09:02→17:34)
[2019-05-18] MEDS: Polyethylene Glycol 3350 17 GM PACKET PO (09:02)
[2019-05-18] MEDS: oxyCODONE 5 MG Tablet PO ×3 (09:07→19:58)
[2019-05-18] MEDS: 0.9% NaCl IVPB Med Flush (250 mL) 15 ML IV (11:03)
[2019-05-18 11:21] LABS: Bedside Glucose 179 mg/dL (70-110)
[2019-05-18] MEDS: 0.9% NaCl Midline IV Flush IV ×2 (11:47→19:58)
[2019-05-18] MEDS: Acetaminophen 500 MG Tablet 1000 MG PO (15:01)
[2019-05-18 15:35] VITALS: BP 139/79; PULSE 85; RESP 18; TEMP 37; O2SAT 96
[2019-05-18 17:15] LABS: Bedside Glucose 152 mg/dL (70-110)
[2019-05-18 17:33] VITALS: BP 139/79; PULSE 85
[2019-05-18] MEDS: MELATONIN 10 MG TABLET PO (19:59)
[2019-05-18] MEDS: Atorvastatin Calcium 80 MG Tablet PO (19:59)
[2019-05-18] MEDS: Paroxetine 20 MG Tablet PO (20:00)
[2019-05-18 21:35] LABS: Bedside Glucose 176 mg/dL (70-110)
[2019-05-19] MEDS: Pramipexole Di-HCl 1 MG Tablet 1.5 MG PO ×2 (04:47→17:15)
[2019-05-19] MEDS: Ascorbic Acid 500 MG Tablet PO (04:47)
[2019-05-19] MEDS: Senna/Docusate Sodium 1 Tablet PO ×2 (04:47→17:16)
[2019-05-19] MEDS: Lisinopril 5 MG Tablet PO (04:47)
[2019-05-19] MEDS: Clopidogrel Bisulfate 75 MG Tablet PO (04:47)
[2019-05-19] MEDS: guaiFENesin 1,200 MG Tablet 1200 MG PO ×2 (04:47→17:16)
[2019-05-19 04:48] VITALS: BP 125/66; PULSE 79
[2019-05-19] MEDS: Metoprolol Tartrate 25 MG Tablet 12.5 MG PO ×2 (04:48→17:15)
[2019-05-19] MEDS: oxyCODONE 5 MG Tablet PO ×3 (04:55→22:18)
[2019-05-19 06:30] LABS: Bedside Glucose 320 mg/dL (70-110)
[2019-05-19] MEDS: Multivitamins,Therapeutic Tablet 1 TABLET PO (07:52)
[2019-05-19] MEDS: Iron Polysaccharide Complex 150 MG CAPSULE PO (07:52)
[2019-05-19] MEDS: Gabapentin 300 MG Capsule 900 MG PO ×3 (07:52→17:16)
[2019-05-19] MEDS: Insulin Lispro 100 UNIT/ML INSULN.PEN 13 UNIT SC ×3 (07:53→17:17)
[2019-05-19] MEDS: 0.9% NaCl IVPB Med Flush (250 mL) 15 ML IV (10:34)
[2019-05-19] MEDS: 0.9% NaCl Midline IV Flush IV (10:34)
[2019-05-19 11:40] LABS: Bedside Glucose 106 mg/dL (70-110)
[2019-05-19] MEDS: Acetaminophen 500 MG Tablet 1000 MG PO (12:50)
[2019-05-19 14:16] VITALS: BP 146/71; PULSE 82; RESP 18; TEMP 36.8; O2SAT 98
[2019-05-19 16:51] LABS: Bedside Glucose 175 mg/dL (70-110)
[2019-05-19 17:15] VITALS: PULSE 82
[2019-05-19 20:21] LABS: Bedside Glucose 61 mg/dL (70-110)
[2019-05-19 20:46] LABS: Bedside Glucose 78 mg/dL (70-110)
[2019-05-19] MEDS: MELATONIN 10 MG TABLET PO (22:17)
[2019-05-19] MEDS: Zolpidem Tartrate 5 MG Tablet PO (22:17)
[2019-05-19] MEDS: Paroxetine 20 MG Tablet PO (22:17)
[2019-05-19] MEDS: Atorvastatin Calcium 80 MG Tablet PO (22:17)
[2019-05-19 23:21] LABS: Bedside Glucose 297 mg/dL (70-110)
[2019-05-20 06:31] LABS: Bedside Glucose 187 mg/dL (70-110)
[2019-05-20] MEDS: Lisinopril 5 MG Tablet PO (06:41)
[2019-05-20] MEDS: Clopidogrel Bisulfate 75 MG Tablet PO (06:41)
[2019-05-20] MEDS: Pramipexole Di-HCl 1 MG Tablet 1.5 MG PO ×2 (06:41→17:19)
[2019-05-20 06:42] VITALS: BP 139/85; PULSE 69
[2019-05-20] MEDS: Metoprolol Tartrate 25 MG Tablet 12.5 MG PO ×2 (06:42→17:20)
[2019-05-20] MEDS: Ascorbic Acid 500 MG Tablet PO (06:42)
[2019-05-20] MEDS: guaiFENesin 1,200 MG Tablet 1200 MG PO ×2 (06:42→17:20)
[2019-05-20] MEDS: Insulin Lispro 100 UNIT/ML INSULN.PEN 13 UNIT SC ×3 (07:39→17:20)
[2019-05-20] MEDS: Multivitamins,Therapeutic Tablet 1 TABLET PO (07:39)
[2019-05-20] MEDS: Iron Polysaccharide Complex 150 MG CAPSULE PO (07:39)
[2019-05-20] MEDS: Gabapentin 300 MG Capsule 900 MG PO ×3 (07:39→17:19)
[2019-05-20] MEDS: 0.9% NaCl IVPB Med Flush (250 mL) 15 ML IV (10:31)
[2019-05-20] MEDS: oxyCODONE 5 MG Tablet PO ×2 (10:31→22:36)
[2019-05-20] MEDS: Acetaminophen 500 MG Tablet 1000 MG PO (10:31)
[2019-05-20 11:57] LABS: Bedside Glucose 133 mg/dL (70-110)
[2019-05-20 14:14] VITALS: BP 135/80; PULSE 79; RESP 20; TEMP 36.6; O2SAT 99
[2019-05-20 16:56] LABS: Bedside Glucose 200 mg/dL (70-110)
[2019-05-20] MEDS: Senna/Docusate Sodium 1 Tablet PO (17:18)
[2019-05-20 17:20] VITALS: PULSE 79
[2019-05-20 21:26] LABS: Bedside Glucose 214 mg/dL (70-110)
[2019-05-20] MEDS: Zolpidem Tartrate 5 MG Tablet PO (22:36)
[2019-05-20] MEDS: Paroxetine 20 MG Tablet PO (22:38)
[2019-05-20] MEDS: MELATONIN 10 MG TABLET PO (22:38)
[2019-05-20] MEDS: Atorvastatin Calcium 80 MG Tablet PO (22:38)
[2019-05-20] MEDS: 0.9% NaCl Midline IV Flush IV (22:39)
[2019-05-21 06:25] VITALS: BP 133/76; PULSE 72
[2019-05-21] MEDS: Clopidogrel Bisulfate 75 MG Tablet PO (06:25)
[2019-05-21] MEDS: Lisinopril 5 MG Tablet PO (06:25)
[2019-05-21] MEDS: Ascorbic Acid 500 MG Tablet PO (06:25)
[2019-05-21] MEDS: Metoprolol Tartrate 25 MG Tablet 12.5 MG PO ×2 (06:25→16:28)
[2019-05-21] MEDS: Pramipexole Di-HCl 1 MG Tablet 1.5 MG PO ×2 (06:25→16:28)
[2019-05-21] MEDS: guaiFENesin 1,200 MG Tablet 1200 MG PO ×2 (06:25→16:27)
[2019-05-21] MEDS: Senna/Docusate Sodium 1 Tablet PO ×2 (06:25→16:27)
[2019-05-21 06:26] LABS: Bedside Glucose 220 mg/dL (70-110)
--- NOTE | 2019-05-21 07:23 | NURSING ---
Spoke with Dr Segovia on the phone this morning; he is not able to make it in today to debride pt's wound. Pt to have wound vac changed today, and it okay to be DC'd home tomorrow. Pt to F/U with wound clinic on DC.
[2019-05-21] MEDS: Insulin Lispro 100 UNIT/ML INSULN.PEN 13 UNIT SC ×3 (08:24→17:10)
[2019-05-21] MEDS: Iron Polysaccharide Complex 150 MG CAPSULE PO (08:25)
[2019-05-21] MEDS: Gabapentin 300 MG Capsule 900 MG PO ×3 (08:25→16:27)
[2019-05-21] MEDS: Multivitamins,Therapeutic Tablet 1 TABLET PO (08:26)
[2019-05-21] MEDS: oxyCODONE 5 MG Tablet PO ×2 (08:30→13:40)
[2019-05-21] MEDS: 0.9% NaCl Midline IV Flush IV (10:13)
[2019-05-21] MEDS: 0.9% NaCl IVPB Med Flush (250 mL) 15 ML IV (10:13)
[2019-05-21] MEDS: Polyethylene Glycol 3350 17 GM PACKET PO (10:15)
[2019-05-21 10:56] LABS: Bedside Glucose 312 mg/dL (70-110)
[2019-05-21 15:33] VITALS: BP 132/72; PULSE 79; RESP 18; TEMP 36.7; O2SAT 97
[2019-05-21] MEDS: Menthol/Camphor/Phenol 225ml Bottle 1 APPLIC TOPICAL (16:06)
[2019-05-21 16:28] VITALS: PULSE 79
[2019-05-21 17:06] LABS: Bedside Glucose 345 mg/dL (70-110)
--- NOTE | 2019-05-21 18:15 | NURSING ---
Addendum entered by Erika Moore 05/21/19 18:30: R' ATE AROUND 1600. SON HAD BROUGHT IN FOOD. EXTRA 10UNITS OF HUMALOG GIVEN AT THIS TIME. R' STATES SON IS BRINING DINNER LATE TONIGHT. Original Note: BLOOD SUGAR 345 TONIGHT. R' DID NOT ORDER DINNER. DR. TORRES ORDERED ADDITIONAL 10 UNITS HUMALOG. R' STATES SHE IS HAVING SON BRING IN DINNER. EXTRA HUMALOG NOT ADMINISTERED AT THIS TIME UNTIL SHE EATS.
[2019-05-21] MEDS: Insulin Lispro 100 UNIT/ML INSULN.PEN 10 UNIT SC (18:28)
[2019-05-21] MEDS: Atorvastatin Calcium 80 MG Tablet PO (21:08)
[2019-05-21] MEDS: Paroxetine 20 MG Tablet PO (21:08)
[2019-05-21] MEDS: MELATONIN 10 MG TABLET PO (21:09)
[2019-05-21 21:41] LABS: Bedside Glucose 392 mg/dL (70-110)
[2019-05-21] MEDS: Zolpidem Tartrate 5 MG Tablet PO (22:50)
[2019-05-22 05:56] VITALS: BP 137/78; PULSE 85
[2019-05-22] MEDS: Pramipexole Di-HCl 1 MG Tablet 1.5 MG PO (05:56)
[2019-05-22] MEDS: Metoprolol Tartrate 25 MG Tablet 12.5 MG PO (05:56)
[2019-05-22] MEDS: Clopidogrel Bisulfate 75 MG Tablet PO (05:57)
[2019-05-22] MEDS: Senna/Docusate Sodium 1 Tablet PO (05:57)
[2019-05-22] MEDS: Ascorbic Acid 500 MG Tablet PO (05:57)
[2019-05-22] MEDS: guaiFENesin 1,200 MG Tablet 1200 MG PO (05:57)
[2019-05-22] MEDS: Lisinopril 5 MG Tablet PO (05:58)
[2019-05-22 06:10] LABS: Bedside Glucose 324 mg/dL (70-110)
[2019-05-22] MEDS: Iron Polysaccharide Complex 150 MG CAPSULE PO (08:31)
[2019-05-22] MEDS: Insulin Lispro 100 UNIT/ML INSULN.PEN 10 UNIT SC (08:31)
[2019-05-22] MEDS: Multivitamins,Therapeutic Tablet 1 TABLET PO (08:31)
[2019-05-22] MEDS: Gabapentin 300 MG Capsule 900 MG PO ×2 (08:31→12:08)
[2019-05-22] MEDS: Insulin Lispro 100 UNIT/ML INSULN.PEN 13 UNIT SC (08:33)
[2019-05-22] MEDS: oxyCODONE 5 MG Tablet PO (09:59)
--- NOTE | 2019-05-22 10:01 | NURSING ---
pt called out requesting pain med rated 7/10. pt was resting in bed in prone position, noted that pt had extreme jerky movements of lower legs and hips. Alert and oriented. Going home today at 4pm
[2019-05-22 11:08] VITALS: PULSE 78; RESP 18; O2SAT 98
[2019-05-22 11:26] LABS: Bedside Glucose 72 mg/dL (70-110)
--- NOTE | 2019-05-22 14:57 | NURSING ---
KELSIE Riggins notified [facility] to pickling operator wound vac.
== END 2019-05-22 14:50 | disposition home health service (06) | DRG 940 ==
PROVIDERS: Podiatrist; Admitting Provider Family Medicine Geriatric Medicine; Family Provider Family Medicine; PCP Family Medicine; Visit Provider Family Medicine Geriatric Medicine
DX: Z48.817 Encounter for surgical aftercare following surgery on the skin and subcutaneous tissue (principal); M86.8X7 Other osteomyelitis, ankle and foot; E11.52 Type 2 diabetes mellitus with diabetic peripheral angiopathy with gangrene; L03.116 Cellulitis of left lower limb; L97.312 Non-pressure chronic ulcer of right ankle with fat layer exposed; E11.621 Type 2 diabetes mellitus with foot ulcer; I25.10 Atherosclerotic heart disease of native coronary artery without angina pectoris; F32.9 Major depressive disorder, single episode, unspecified; F41.1 Generalized anxiety disorder; G25.81 Restless legs syndrome; E78.5 Hyperlipidemia, unspecified; E11.42 Type 2 diabetes mellitus with diabetic polyneuropathy; K21.9 Gastro-esophageal reflux disease without esophagitis; E11.69 Type 2 diabetes mellitus with other specified complication; L97.522 Non-pressure chronic ulcer of other part of left foot with fat layer exposed; I12.9 Hypertensive chronic kidney disease with stage 1 through stage 4 chronic kidney disease, or unspecified chronic kidney disease; E11.65 Type 2 diabetes mellitus with hyperglycemia; I25.2 Old myocardial infarction; E11.22 Type 2 diabetes mellitus with diabetic chronic kidney disease; N18.9 Chronic kidney disease, unspecified; E11.622 Type 2 diabetes mellitus with other skin ulcer; I25.5 Ischemic cardiomyopathy; G89.29 Other chronic pain; E60 Dietary zinc deficiency; M75.102 Unspecified rotator cuff tear or rupture of left shoulder, not specified as traumatic; D50.9 Iron deficiency anemia, unspecified; B95.61 Methicillin susceptible Staphylococcus aureus infection as the cause of diseases classified elsewhere
CPT/HCPCS: 36415; 73030; 80048; 80307; 82962; 85025; 85652; 86140; 93306; 93880; 97014; 97032; 97110; 97116; 97161; 97166; 97530; 97535; 97802; 97803; J7030; J7050; A4216; G0283; J0696

== ENCOUNTER 2019-04-18 15:00 | Outpatient (RCR) | payer MEDICARE, MEDICAID, SELFPAY ==
[2018-09-21 13:23] VITALS: BMI 29.3
== END 2019-04-18 23:59 | disposition home or self-care (01) ==
LOC: DC 15:00
PROVIDERS: Family Provider Family Medicine; PCP Family Medicine; Visit Provider Podiatrist
DX: Z71.3 Dietary counseling and surveillance (principal); E11.621 Type 2 diabetes mellitus with foot ulcer; T14.8XXD Other injury of unspecified body region, subsequent encounter
CPT/HCPCS: G0108

== ENCOUNTER → 2019-05-24 15:40 | Outpatient (CLI) | payer MEDICARE, MEDICAID, SELFPAY ==
[2018-09-21 13:23] VITALS: BMI 29.3
[2019-04-27 12:24] VITALS: BMI 31.3
== END ==
PROVIDERS: Family Provider Family Medicine; PCP Family Medicine; Referring Provider Podiatrist; Visit Provider Podiatrist
DX: L03.115 Cellulitis of right lower limb (principal); L98.499 Non-pressure chronic ulcer of skin of other sites with unspecified severity

== ENCOUNTER → 2019-05-24 17:29 | Outpatient (CLI) | payer SELFPAY ==
[2018-09-21 13:23] VITALS: BMI 29.3
[2019-04-27 12:24] VITALS: BMI 31.3
== END ==
PROVIDERS: Visit Provider Podiatrist
DX: L97.319 Non-pressure chronic ulcer of right ankle with unspecified severity (principal); L03.115 Cellulitis of right lower limb
CPT/HCPCS: 87070; 87075; 87205

== ENCOUNTER 2019-06-06 16:15 | Outpatient (RCR) | payer MEDICARE, MEDICAID, SELFPAY ==
[2018-09-21 13:23] VITALS: BMI 29.3
[2019-04-07 17:57] VITALS: BMI 29.9
[2019-04-09 00:48] VITALS: BP 153/78; PULSE 125; RESP 16; TEMP 37.5
[2019-04-27 12:24] VITALS: BMI 31.3
[2019-05-30 16:13] VITALS: BP 162/88; PULSE 103; RESP 16; TEMP 37; BMI 29.0
--- NOTE | 2019-06-02 07:52 | PN.PCM_ITS ---
(1) Type 2 diabetes mellitus with diabetic polyneuropathy Status: Chronic Current Visit: Yes Code(s): E11.42 - Type 2 diabetes mellitus with diabetic polyneuropathy (2) Delayed wound healing Status: Chronic Current Visit: Yes Code(s): T14.8XXD - Other injury of unspecified body region, subsequent encounter (3) Malnutrition Status: Chronic Current Visit: Yes Code(s): E46 - Unspecified protein- calorie malnutrition (4) Ulcer of right lower extremity with fat layer exposed Status: Chronic Current Visit: Yes Code(s): L97.912 - Non-pressure chronic ulcer of unspecified part of right lower leg with fat layer exposed (5) Chronic ulcer of left foot with fat layer exposed Status: Chronic Current Visit: Yes Code(s): L97.522 - Non-pressure chronic ulcer of other part of left foot with fat layer exposed Type of Wound Date of Service: 06/02/19 Chief Complaint: Right ankle diabetic ulcer. left foot ulcer History of Wound: This 53-year-old female returns to clinic for a new recurrent right ankle ulcer that opened when she tried to wear her brace and she was then. This was about 2 weeks ago. She is also following up for left foot ulcer that was previously infected and underwent widespread debridement with bone biopsy which were negative. She is completed and long-term possible antibiotics. She denies pain. She denies fever, chills, nausea, vomiting. She is with her family member today. She wears offloading immobilizing device to the left lower extremity. Progress of Wound: Improving left foot. Recurrent right ankle, no infection - Physical Exam Vital Signs Temp Pulse Resp BP 98.6 F 103 H 16 162/88 H 05/30/19 16:13 05/30/19 16:13 05/30/19 16:13 05/30/19 16:13 General: Alert, Oriented x3, Cooperative, No apparent distress HEENT: Atraumatic Extremities: Capillary Refill Less than 3 Seconds, No Calf Tenderness, Diminished Peripheral Pulses, Edema Skin: Ulcer/ Wound - No pain, erythema, streaking, odor, infection. the peripheral skin is hairless and atrophic. Wound Measurements and Assessment WC - Nurse 1 - General Ulcer Measurement Start: 05/30/19 16:07 Freq: Status: Active Protocol: Activity Type Activity Date Activity User E-Sign Co-Sign Detail Recorded Client Recorded Date Recorded By Document 05/30/19 16:13 JF [id number] 05/30/19 16:21 JF 05/30/19 16:13 Wound Center Nurse 1 [Ulcer Assessment] 8-left lateral dorsal foot -Combined with other wound No -Current Size (cm) - Length 1.5 -Current Size (cm) - Width 0.5 -Current Size (cm) - Depth 0.5 -Total Square Cm 0.75 -Photo Taken Yes -Epithelialization Medium 34-66% -Tunneling No -Undermining/Tunneling No -Circular Undermining No -Exudate Amt Small -Exudate Type Serosanguineous -Wound Margin Flat & Intact -Granulation Amt None Present (0 %) -Slough/Fibrin Yes -Necrosis Amt Large (67-100%) -Necrotic Tissue Type Adherent Slough -Structure Exposed N/A -Texture (Natacha-wound Skin Appearance) Assessed -Moisture (Natacha-wound Skin Appearance Assessed,Dry/ ) Scaly -Color (Natacha-wound Skin Appearance) Assessed -Temperature (Natacha-wound Skin No Abnormality Appearance) (Pt Warm) -Tenderness on Palpation (Natacha-wound No Skin Appearance) -Ulcer Cleansing Wound Cleanser -Foul Odor after Cleansing No -Anesthetic Used 4% Lidocaine Solution 7-left plantar -Combined with other wound No -Current Size (cm) - Length 2.1 -Current Size (cm) - Width 2.4 -Current Size (cm) - Depth 0.1 -Total Square Cm 5.04 -Photo Taken Yes -Epithelialization Medium 34-66% -Tunneling No -Undermining/Tunneling No -Circular Undermining No -Exudate Amt Medium -Exudate Type Serosanguineous -Wound Margin Flat & Intact -Granulation Amt Large (67-100%) -Granulation Quality Red -Slough/Fibrin Yes -Necrosis Amt Small (1-33%) -Necrotic Tissue Type Adherent Slough -Structure Exposed N/A -Texture (Natacha-wound Skin Appearance) Assessed,Callus -Moisture (Natacha-wound Skin Appearance Assessed,Dry/ ) Scaly -Color (Natacha-wound Skin Appearance) Assessed -Temperature (Natacha-wound Skin No Abnormality Appearance) (Pt Warm) -Tenderness on Palpation (Natacha-wound No Skin Appearance) -Ulcer Cleansing Rinsed/ Irrigated with Saline -Foul Odor after Cleansing No -Anesthetic Used 4% Lidocaine Solution 6-right ankle -Combined with other wound No -Current Size (cm) - Length 1.9 -Current Size (cm) - Width 2.5 -Current Size (cm) - Depth 0.1 -Total Square Cm 4.75 -Photo Taken Yes -Epithelialization Medium 34-66% -Tunneling No -Undermining/Tunneling No -Circular Undermining No -Exudate Amt Medium -Exudate Type Serosanguineous -Wound Margin Flat & Intact -Granulation Amt Large (67-100%) -Granulation Quality Red -Slough/Fibrin Yes -Necrosis Amt Small (1-33%) -Necrotic Tissue Type Adherent Slough -Structure Exposed Fat Layer Exposed -Texture (Natacha-wound Skin Appearance) Assessed,Callus -Moisture (Natacha-wound Skin Appearance Assessed,Dry/ ) Scaly -Color (Natacha-wound Skin Appearance) Assessed -Temperature (Natacha-wound Skin No Abnormality Appearance) (Pt Warm) -Tenderness on Palpation (Natacha-wound No Skin Appearance) -Ulcer Cleansing Wound Cleanser -Foul Odor after Cleansing No -Anesthetic Used 4% Lidocaine Solution [Edema Assessment] -Lower Limb Edema Present Yes -Right Calf (cm) 34.5 -Right Ankle (cm) 20.7 -Left Calf (cm) 34.1 -Left Ankle (cm) 20.4 WC - Nurse 2 - General Ulcer CM Notes Start: 05/30/19 16:07 Freq: Status: Active Protocol: Activity Type Activity Date Activity User E-Sign Co-Sign Detail Recorded Client Recorded Date Recorded By Document 05/30/19 16:34 AN [id number] 05/30/19 16:41 AN 05/30/19 16:34 Wound Center Nurse 2 [Procedure/Treatment] 8-left lateral dorsal foot -Time 16:36 -Correct Patient Yes -Correct Side, Site, Position Yes -Correct Procedure Yes -Procedure Performed Yes -Type of Procedure Debridement -Clinical Debridement Subcutaneous -Post Debridement Size (cm) - Length 1.6 -Post Debridement Size (cm) - Width 0.6 -Post Debridement Size (cm) - Depth 0.5 -Total Square Cm 0.96 -Wound/Ulcer Outcome Not Healed -Ulcer Cleansing Rinsed/ Irrigated with Saline -Foul Odor after Cleansing No -Bioengineered Tissue No -Bleeding Controlled with Pressure -Offloading Yes -Type of Offloading Surgical Shoe -Treatment Response Procedure Tolerated Well 7-left plantar -Time 16:36 -Correct Patient Yes -Correct Side, Site, Position Yes -Correct Procedure Yes -Procedure Performed Yes -Type of Procedure Debridement -Clinical Debridement Subcutaneous -Post Debridement Size (cm) - Length 2.2 -Post Debridement Size (cm) - Width 2.5 -Post Debridement Size (cm) - Depth 0.1 -Total Square Cm 5.50 -Wound/Ulcer Outcome Not Healed -Ulcer Cleansing Rinsed/ Irrigated with Saline -Foul Odor after Cleansing No -Bioengineered Tissue No -Bleeding Controlled with Pressure -Offloading Yes -Type of Offloading Surgical Shoe -Treatment Response Procedure Tolerated Well 6-right ankle -Time 16:36 -Correct Patient Yes -Correct Side, Site, Position Yes -Correct Procedure Yes -Procedure Performed Yes -Type of Procedure Debridement -Clinical Debridement Subcutaneous -Post Debridement Size (cm) - Length 2.0 -Post Debridement Size (cm) - Width 2.6 -Post Debridement Size (cm) - Depth 0.1 -Total Square Cm 5.20 -Wound/Ulcer Outcome Not Healed -Ulcer Cleansing Rinsed/ Irrigated with Saline -Foul Odor after Cleansing No -Bioengineered Tissue No -Bleeding Controlled with Pressure -Offloading Yes -Type of Offloading Surgical Shoe -Treatment Response Procedure Tolerated Well [See Physician Procedure note for Specifics] Pain Scale: 0-10 Numeric [Pain] -Is Patient Pain Free? Yes Musculoskeletal: No Tenderness to Palpation of Joints or Extremities, Muscle Wasting, - - negative gabriel and araiza signs bilateral. varus rotation of bilateral lower extremities Neurological: - - Lack of normal epicritic sensation light touch consistent with neuropathy bilateral lower extremity Psych/Mental Status: Normal Affect, Appropriate Debridement Note Post-Debridement Measurements/Treatment WC - Nurse 2 - General Ulcer CM Notes Start: 05/30/19 16:07 Freq: Status: Active Protocol: Activity Type Activity Date Activity User E-Sign Co-Sign Detail Recorded Client Recorded Date Recorded By Document 05/30/19 16:34 AN [id number] 05/30/19 16:41 AN 05/30/19 16:34 Wound Center Nurse 2 8-left lateral dorsal foot -Time 16:36 -Correct Patient Yes -Correct Side, Site, Position Yes -Correct Procedure Yes -Procedure Performed Yes -Type of Procedure Debridement -Clinical Debridement Subcutaneous -Post Debridement Size (cm) - Length 1.6 -Post Debridement Size (cm) - Width 0.6 -Post Debridement Size (cm) - Depth 0.5 -Total Square Cm 0.96 -Wound/Ulcer Outcome Not Healed -Ulcer Cleansing Rinsed/ Irrigated with Saline -Foul Odor after Cleansing No -Bioengineered Tissue No -Bleeding Controlled with Pressure -Offloading Yes -Type of Offloading Surgical Shoe -Treatment Response Procedure Tolerated Well 7-left plantar -Time 16:36 -Correct Patient Yes -Correct Side, Site, Position Yes -Correct Procedure Yes -Procedure Performed Yes -Type of Procedure Debridement -Clinical Debridement Subcutaneous -Post Debridement Size (cm) - Length 2.2 -Post Debridement Size (cm) - Width 2.5 -Post Debridement Size (cm) - Depth 0.1 -Total Square Cm 5.50 -Wound/Ulcer Outcome Not Healed -Ulcer Cleansing Rinsed/ Irrigated with Saline -Foul Odor after Cleansing No -Bioengineered Tissue No -Bleeding Controlled with Pressure -Offloading Yes -Type of Offloading Surgical Shoe -Treatment Response Procedure Tolerated Well 6-right ankle -Time 16:36 -Correct Patient Yes -Correct Side, Site, Position Yes -Correct Procedure Yes -Procedure Performed Yes -Type of Procedure Debridement -Clinical Debridement Subcutaneous -Post Debridement Size (cm) - Length 2.0 -Post Debridement Size (cm) - Width 2.6 -Post Debridement Size (cm) - Depth 0.1 -Total Square Cm 5.20 -Wound/Ulcer Outcome Not Healed -Ulcer Cleansing Rinsed/ Irrigated with Saline -Foul Odor after Cleansing No -Bioengineered Tissue No -Bleeding Controlled with Pressure -Offloading Yes -Type of Offloading Surgical Shoe -Treatment Response Procedure Tolerated Well Pain Scale: 0-10 Numeric Is Patient Pain Free? Yes Wound debrided: latreral ankle Laterality: Right Wound Grade/Stage: grade 1 Type of Debridement: Excisional debridement Anesthesia Used: 5% Lidocaine Gel Depth: in the subcutaneous layer Percentage of wound debrided: 100 Instrument Used: #15 blade Tissue Removed: fibrous, devitalized subcutaneous, biofim, slough Severity: Fat Layer Exposed Amount of bleeding with debridement: Mild Bleeding Controlled with: Pressure Patient tolerated procedure well - Additional Wound Wound debrided: plantar lateral foot Laterality: Left Wound Grade/Stage: grade 3 Type of Debridement: Excisional debridement Anesthesia Used: 5% Lidocaine Gel Depth: in the subcutaneous layer Percentage of wound debrided: 100 Instrument Used: #15 blade Tissue Removed: fibrous, devitalized subcutaneous, biofim, slough Severity: Fat Layer Exposed Amount of bleeding with debridement: Mild Bleeding Controlled with: Pressure Patient tolerated procedure: Patient tolerated procedure well Assessment/Plan Active Problems (This Medical Record has been edited. Action required.) Type 2 diabetes mellitus with diabetic polyneuropathy (Chronic) Delayed wound healing (Chronic) Malnutrition (Chronic) Ulcer of right lower extremity with fat layer exposed (Chronic) Chronic ulcer of left foot with fat layer exposed (Chronic) Assessment: Diabetic ulcer of right ankle -recurrent and no signs of infection, grade 1. Ulcer plantar left foot, grade 3 treated previously medically and surgically for infection--stable today. Diabetic foot ulcer associated with type 2 diabetes mellitus. Hemoglobin A1c greater than 9.0%. varus deformity bilateral lower extremities. malnutrition suspected. delayed healing Plan: Patient was carefully examined and evaluated in detail today. Subcutaneous excisional debridement of both ulcers done as noted in clinical panel. Procedure was well-tolerated. To discontinue wound VAC. I recommend changing the dressing daily with Vanessa to the right ankle and plantar lateral left foot and Aquacel Ag packed into the lateral left foot ulcer site. The patient is to change her dressing in this manner on a daily basis. Additionally advanced wound healing proximal will be considered in the course of IV antibiotics I do not recommend wearing right foot also to avoid pressure ulcers; she will schedule this appointment with antibiotics to have this addressed. To new immobilization offloading device to the extremity and to try to remaining nonweightbearing status. Offloading strongly recommended. Patient remains noncompliant in this. Optimal blood sugar control and increased protein intake also discussed. All questions were answered and she was advised to call with any further questions or concerns. All signs and symptoms of local and systemic infection were discussed with the patient today. She is instructed to go to the emergency room immediately if she notices any of these. We previously discussed surgical recommendations including exostectomy of the fifth metatarsal base of the left foot, advanced ulcer excision and closure techniques and potential external fixation device application. To use a cane or knee roller for ambulation assistance. I answered all of her questions. To return to the wound healing center 1 week or call sooner she has any questions or concerns.
[2019-06-06 15:26] VITALS: BP 143/77; PULSE 100; RESP 18; TEMP 36.9; BMI 29.0
--- NOTE | 2019-06-06 16:08 | PCM.WC.PN ---
(1) Chronic ulcer of left foot with fat layer exposed Status: Chronic Current Visit: Yes Code(s): L97.522 - Non-pressure chronic ulcer of other part of left foot with fat layer exposed (2) Ulcer of right lower extremity with fat layer exposed Status: Chronic Current Visit: Yes Code(s): L97.912 - Non-pressure chronic ulcer of unspecified part of right lower leg with fat layer exposed (3) Type 2 diabetes mellitus with diabetic polyneuropathy Status: Chronic Current Visit: Yes Code(s): E11.42 - Type 2 diabetes mellitus with diabetic polyneuropathy (4) Delayed wound healing Status: Chronic Current Visit: Yes Code(s): T14.8XXD - Other injury of unspecified body region, subsequent encounter (5) Malnutrition Status: Chronic Current Visit: Yes Code(s): E46 - Unspecified protein-calorie malnutrition (6) Diarrhea Status: Acute Current Visit: Yes Code(s): R19.7 - Diarrhea, unspecified (7) Hyperglycemia Status: Acute Current Visit: Yes Code(s): R73.9 - Hyperglycemia, unspecified Type of Wound Date of Service: 06/06/19 Chief Complaint: Right ankle diabetic ulcer. left foot ulcer History of Wound: This 53-year-old female returns to clinic for a right ankle ulcer and left foot ulcer. These were previously infected and she had surgical intervention and drainage with bone biopsies performed. This infection has since resolved and she completed a course of IV antibiotics and care plan in the transitional care unit. She has been undergoing dressing changes at home with Vanessa and Aquacel Ag. She wears a surgical shoe to the right lower extremity and remains nonweightbearing to left lower extremity with the use of crutches. She denies fever, chills, or foot pain. She is very uncomfortable and is unable to stay seated in her chair. She reports diarrhea with an onset of this morning. She relates she is also dizzy and has nausea. She thinks her blood sugar levels high and request we checked this. She denies odor or redness from the foot. Progress of Wound: Improving left foot. stable right ankle ulcer - Physical Exam Vital Signs Temp Pulse Resp BP 98.4 F 100 18 143/77 H 06/06/19 15:26 06/06/19 15:26 06/06/19 15:26 06/06/19 15:26 General: Alert, Oriented x3, Cooperative, No apparent distress Extremities: No cyanosis, Capillary Refill Less than 3 Seconds, No Calf Tenderness - Negative Jaswinder and Nuñez signs of bilateral, Diminished Peripheral Pulses, Edema, - - Fifth ray resections noted bilateral. Flexible varus attitude of the foot upon the leg bilateral. Decreased ankle dorsiflexion bilateral. Compartments are soft to palpate bilateral. There is no bogginess or fluctuance on palpation of bilateral foot or lower extremity. Skin: Ulcer/ Wound - No purulence, erythema, streaking, odor, necrosis, maceration, acute signs of infection bilateral. There is no probe to bone to bilateral lower externally ulcers. The peripheral skin is hairless and atrophic. Wound Measurements and Assessment WC - Nurse 1 - General Ulcer Measurement Start: 05/30/19 16:07 Freq: Status: Active Protocol: Activity Type Activity Date Activity User E-Sign Co-Sign Detail Recorded Client Recorded Date Recorded By Document 06/06/19 15:26 ZIGGY [id number] 06/06/19 15:36 ZIGGY 06/06/19 15:26 Wound Center Nurse 1 [Ulcer Assessment] 8-left lateral dorsal foot -Combined with other wound No -Current Size (cm) - Length 1 -Current Size (cm) - Width 0.4 -Current Size (cm) - Depth 1 -Total Square Cm 0.4 -Tunneling No -Undermining/Tunneling No -Circular Undermining No -Exudate Amt Small -Exudate Type Serosanguineous -Wound Margin Thickened & Rolled Under -Granulation Amt Medium (34-66%) -Granulation Quality [place] -Slough/Fibrin Yes -Necrosis Amt Medium (34-66%) -Necrotic Tissue Type Adherent Slough -Structure Exposed N/A -Texture (Natacha-wound Skin Appearance) Assessed -Moisture (Natacha-wound Skin Appearance Maceration ) -Color (Natacha-wound Skin Appearance) Assessed -Temperature (Natacha-wound Skin No Abnormality Appearance) (Pt Warm) -Tenderness on Palpation (Natacha-wound No Skin Appearance) -Ulcer Cleansing Wound Cleanser -Foul Odor after Cleansing No -Anesthetic Used 4% Lidocaine Solution 7-left plantar -Combined with other wound No -Current Size (cm) - Length 2 -Current Size (cm) - Width 2.9 -Current Size (cm) - Depth 0.1 -Total Square Cm 5.8 -Tunneling No -Undermining/Tunneling No -Circular Undermining No -Exudate Amt Small -Exudate Type Serosanguineous -Wound Margin Flat & Intact -Granulation Amt Large (67-100%) -Granulation Quality Red -Slough/Fibrin Yes -Necrosis Amt Small (1-33%) -Necrotic Tissue Type Adherent Slough -Structure Exposed N/A -Texture (Natacha-wound Skin Appearance) Assessed,Callus -Moisture (Natacha-wound Skin Appearance Dry/Scaly ) -Color (Natacha-wound Skin Appearance) Assessed -Temperature (Natacha-wound Skin No Abnormality Appearance) (Pt Warm) -Tenderness on Palpation (Natacha-wound No Skin Appearance) -Ulcer Cleansing Wound Cleanser -Foul Odor after Cleansing No -Anesthetic Used 4% Lidocaine Solution 6-right ankle -Combined with other wound No -Current Size (cm) - Length 2.4 -Current Size (cm) - Width 1.8 -Current Size (cm) - Depth 0.1 -Total Square Cm 4.32 -Tunneling No -Undermining/Tunneling No -Circular Undermining No -Exudate Amt Small -Exudate Type Serosanguineous -Wound Margin Distinct, Outline Attached -Granulation Amt Large (67-100%) -Granulation Quality [place] -Slough/Fibrin Yes -Necrosis Amt Small (1-33%) -Necrotic Tissue Type Adherent Slough -Structure Exposed N/A -Texture (Natacha-wound Skin Appearance) Assessed -Moisture (Natacha-wound Skin Appearance Maceration ) -Color (Natacha-wound Skin Appearance) Assessed -Temperature (Natacha-wound Skin No Abnormality Appearance) (Pt Warm) -Tenderness on Palpation (Natacha-wound No Skin Appearance) -Ulcer Cleansing Wound Cleanser -Foul Odor after Cleansing No -Anesthetic Used 4% Lidocaine Solution [Edema Assessment] -Lower Limb Edema Present Yes -Right Calf (cm) 34.3 -Right Ankle (cm) 20 -Left Calf (cm) 33.9 -Left Ankle (cm) 20 WC - Nurse 2 - General Ulcer CM Notes Start: 05/30/19 16:07 Freq: Status: Active Protocol: Activity Type Activity Date Activity User E-Sign Co-Sign Detail Recorded Client Recorded Date Recorded By Document 06/06/19 15:59 AN [id number] 06/06/19 16:03 AN 06/06/19 15:59 Wound Center Nurse 2 [Procedure/Treatment] 8-left lateral dorsal foot -Time 16:00 -Correct Patient Yes -Correct Side, Site, Position Yes -Correct Procedure Yes -Procedure Performed Yes -Type of Procedure Debridement -Clinical Debridement Subcutaneous -Post Debridement Size (cm) - Length 1.1 -Post Debridement Size (cm) - Width 0.4 -Post Debridement Size (cm) - Depth 1.0 -Total Square Cm 0.44 -Wound/Ulcer Outcome Not Healed -Ulcer Cleansing Rinsed/ Irrigated with Saline -Foul Odor after Cleansing No -Bioengineered Tissue No -Bleeding Controlled with Pressure -Offloading Yes -Treatment Response Procedure Tolerated Well 7-left plantar -Time 16:01 -Correct Patient Yes -Correct Side, Site, Position Yes -Correct Procedure Yes -Procedure Performed Yes -Type of Procedure Debridement -Clinical Debridement Subcutaneous -Post Debridement Size (cm) - Length 2.1 -Post Debridement Size (cm) - Width 3.0 -Post Debridement Size (cm) - Depth 0.1 -Total Square Cm 6.30 -Wound/Ulcer Outcome Not Healed -Ulcer Cleansing Rinsed/ Irrigated with Saline -Foul Odor after Cleansing No -Bioengineered Tissue No -Bleeding Controlled with Pressure -Offloading Yes -Treatment Response Procedure Tolerated Well 6-right ankle -Time 16:02 -Correct Patient Yes -Correct Side, Site, Position Yes -Correct Procedure Yes -Procedure Performed Yes -Type of Procedure Debridement -Clinical Debridement Subcutaneous -Post Debridement Size (cm) - Length 2.5 -Post Debridement Size (cm) - Width 1.9 -Post Debridement Size (cm) - Depth 0.1 -Total Square Cm 4.75 -Wound/Ulcer Outcome Not Healed -Ulcer Cleansing Rinsed/ Irrigated with Saline -Foul Odor after Cleansing No -Bioengineered Tissue No -Bleeding Controlled with Pressure -Offloading Yes -Type of Offloading Surgical Shoe -Treatment Response Procedure Tolerated Well [See Physician Procedure note for Specifics] Pain Scale: 0-10 Numeric [Pain] -Is Patient Pain Free? Yes Musculoskeletal: No Tenderness to Palpation of Joints or Extremities, Muscle Wasting Neurological: - - Lack of normal epicritic sensation light touch consistent with neuropathy bilateral lower extremities Psych/Mental Status: Normal Affect, Appropriate Debridement Note Post-Debridement Measurements/Treatment WC - Nurse 2 - General Ulcer CM Notes Start: 05/30/19 16:07 Freq: Status: Active Protocol: Activity Type Activity Date Activity User E-Sign Co-Sign Detail Recorded Client Recorded Date Recorded By Document 05/30/19 16:34 AN [id number] 05/30/19 16:41 AN Document 06/06/19 15:59 AN [id number] 06/06/19 16:03 AN 05/30/19 06/06/19 16:34 15:59 Wound Center Nurse 2 8-left lateral dorsal foot -Time 16:36 16:00 -Correct Patient Yes Yes -Correct Side, Site, Position Yes Yes -Correct Procedure Yes Yes -Procedure Performed Yes Yes -Type of Procedure Debridement Debridement -Clinical Debridement Subcutaneous Subcutaneous -Post Debridement Size (cm) - Length 1.6 1.1 -Post Debridement Size (cm) - Width 0.6 0.4 -Post Debridement Size (cm) - Depth 0.5 1.0 -Total Square Cm 0.96 0.44 -Wound/Ulcer Outcome Not Healed Not Healed -Ulcer Cleansing Rinsed/ Rinsed/ Irrigated with Irrigated with Saline Saline -Foul Odor after Cleansing No No -Bioengineered Tissue No No -Bleeding Controlled with Pressure Pressure -Offloading Yes Yes -Type of Offloading Surgical Shoe -Treatment Response Procedure Procedure Tolerated Well Tolerated Well 7-left plantar -Time 16:36 16:01 -Correct Patient Yes Yes -Correct Side, Site, Position Yes Yes -Correct Procedure Yes Yes -Procedure Performed Yes Yes -Type of Procedure Debridement Debridement -Clinical Debridement Subcutaneous Subcutaneous -Post Debridement Size (cm) - Length 2.2 2.1 -Post Debridement Size (cm) - Width 2.5 3.0 -Post Debridement Size (cm) - Depth 0.1 0.1 -Total Square Cm 5.50 6.30 -Wound/Ulcer Outcome Not Healed Not Healed -Ulcer Cleansing Rinsed/ Rinsed/ Irrigated with Irrigated with Saline Saline -Foul Odor after Cleansing No No -Bioengineered Tissue No No -Bleeding Controlled with Pressure Pressure -Offloading Yes Yes -Type of Offloading Surgical Shoe -Treatment Response Procedure Procedure Tolerated Well Tolerated Well 6-right ankle -Time 16:36 16:02 -Correct Patient Yes Yes -Correct Side, Site, Position Yes Yes -Correct Procedure Yes Yes -Procedure Performed Yes Yes -Type of Procedure Debridement Debridement -Clinical Debridement Subcutaneous Subcutaneous -Post Debridement Size (cm) - Length 2.0 2.5 -Post Debridement Size (cm) - Width 2.6 1.9 -Post Debridement Size (cm) - Depth 0.1 0.1 -Total Square Cm 5.20 4.75 -Wound/Ulcer Outcome Not Healed Not Healed -Ulcer Cleansing Rinsed/ Rinsed/ Irrigated with Irrigated with Saline Saline -Foul Odor after Cleansing No No -Bioengineered Tissue No No -Bleeding Controlled with Pressure Pressure -Offloading Yes Yes -Type of Offloading Surgical Shoe Surgical Shoe -Treatment Response Procedure Procedure Tolerated Well Tolerated Well Pain Scale: 0-10 Numeric Is Patient Pain Free? Yes Yes Wound debrided: plantar foot Laterality: Left Wound Grade/Stage: grade 3 Type of Debridement: Excisional debridement Anesthesia Used: 5% Lidocaine Gel Depth: in the subcutaneous layer Percentage of wound debrided: 100 Instrument Used: #15 blade Tissue Removed: fibrous, devitalized subcutaneous, biofilm, slough Severity: Fat Layer Exposed Amount of bleeding with debridement: Mild Bleeding Controlled with: Pressure Patient tolerated procedure well - Additional Wound Wound debrided: dorsal lateral foot Laterality: Left Wound Grade/Stage: grade 3 Type of Debridement: Excisional debridement Anesthesia Used: 5% Lidocaine Gel Depth: in the subcutaneous layer Percentage of wound debrided: 100 Instrument Used: #15 blade Tissue Removed: fibrous, devitalized subcutaneous, biofilm, slough Severity: Fat Layer Exposed Amount of bleeding with debridement: Mild Bleeding Controlled with: Pressure Patient tolerated procedure: Patient tolerated procedure well - Additional Wound Wound debrided: lateral ankle Laterality: Right Wound Grade/Stage: grade 1 Type of Debridement: Excisional debridement Anesthesia Used: 5% Lidocaine Gel Depth: in the subcutaneous layer Percentage of wound debrided: 100 Instrument Used: #15 blade Tissue Removed: fibrous, devitalized subcutaneous, biofilm, slough Severity: Fat Layer Exposed Amount of bleeding with debridement: Mild Bleeding Controlled with: Pressure Patient tolerated procedure: Patient tolerated procedure well Assessment/Plan Active Problems (This Medical Record has been edited. Action required.) Type 2 diabetes mellitus with diabetic polyneuropathy (Chronic) Delayed wound healing (Chronic) Malnutrition (Chronic) Diarrhea (Acute) Hyperglycemia (Acute) Ulcer of right lower extremity with fat layer exposed (Chronic) Chronic ulcer of left foot with fat layer exposed (Chronic) Assessment: Diabetic ulcer of right ankle -recurrent and no signs of infection, grade 1. Ulcer plantar left foot, grade 3 treated previously medically and surgically for infection--stable today. Diabetic foot ulcer associated with type 2 diabetes mellitus. Hemoglobin A1c greater than 9.0%. varus deformity bilateral lower extremities. malnutrition suspected. delayed healing. Hyperglycemia, 399 mg/dL. Diarrhea new onset Plan: Patient was carefully examined and evaluated in detail today. Subcutaneous excisional debridement of both ulcers done as noted in clinical panel. Procedure was well-tolerated. I recommend changing the dressing daily with Vanessa to the right ankle and plantar lateral left foot and Aquacel Ag packed into the lateral left foot ulcer site. The patient is to change her dressing in this manner on a daily basis. Additionally advanced wound healing product application is recommended. Prior authorization will be initiated for epi-fix, amniotic cord cell derived product. This is medically necessary for limb salvage. It is noted she is already been undergoing a comprehensive wound healing plan and has delayed and nonhealing. She has suspected adequate vascular perfusion for healing. Prior authorization will be initiated. The indications, planned procedure, benefits, risk, and anticipated healing time is were discussed. She is amendable. To new immobilization offloading device to the extremity and to try to remaining nonweightbearing status. Offloading strongly recommended. Patient remains noncompliant in this. Optimal blood sugar control and increased protein intake also discussed. All questions were answered and she was advised to call with any further questions or concerns. All signs and symptoms of local and systemic infection were discussed with the patient today. Her diarrhea and hyperglycemia is noted today. She does not appear well and is very uncomfortable. I recommend she was emergency room for further evaluation. She does not feel safe returning home at this time. We previously discussed surgical recommendations including exostectomy of the fifth metatarsal base of the left foot, advanced ulcer excision and closure techniques and potential external fixation device application. To use a cane or knee roller for ambulation assistance. I answered all of her questions. To return to the wound healing center 1 week or call sooner she has any questions or concerns.
[2019-06-06 16:10] LABS: Bedside Glucose 399 mg/dL (70-110)
[2019-06-06 16:20] VITALS: BMI 29.0
--- NOTE | 2019-06-06 16:20 | WC ---
Dr Edgar request blood sugar test at wound center now . Pt complaining of S/S high blood sugar at visit.. OT performed and OT was 399 .
== END 2019-06-09 23:59 ==
LOC: WC 16:15
PROVIDERS: Family Provider Family Medicine; PCP Family Medicine; Referring Provider Podiatrist; Visit Provider Podiatrist
DX: E11.621 Type 2 diabetes mellitus with foot ulcer (principal); E11.42 Type 2 diabetes mellitus with diabetic polyneuropathy; L97.522 Non-pressure chronic ulcer of other part of left foot with fat layer exposed; E11.622 Type 2 diabetes mellitus with other skin ulcer; L97.312 Non-pressure chronic ulcer of right ankle with fat layer exposed; Z91.19 Patient's noncompliance with other medical treatment and regimen; E11.65 Type 2 diabetes mellitus with hyperglycemia
CPT/HCPCS: 11042; 82962

== ENCOUNTER 2019-06-06 21:47 | Emergency (ER) | payer MEDICARE, MEDICAID, SELFPAY ==
[2018-09-21 13:23] VITALS: BMI 29.3
[2019-06-06 16:20] VITALS: BMI 29.0
[2019-06-06 21:48] VITALS: BP 93/66; PULSE 75; RESP 18; TEMP 36.8; O2SAT 94; BMI 36.9
--- NOTE | 2019-06-06 21:49 | ED.RN ---
CALLED FOR EKG PER RN REQUEST, PULLED OLD EKGS FOR
--- NOTE | 2019-06-06 21:59 | EKG12_ITS ---
Test Reason : WEAKNESS Blood Pressure : / mmHG Vent. Rate : 077 BPM Atrial Rate : 077 BPM P-R Int : 156 ms QRS Dur : 084 ms QT Int : 398 ms P-R-T Axes : 036 000 032 degrees QTc Int : 450 ms Normal sinus rhythm Minimal voltage criteria for LVH, may be normal variant Borderline ECG Confirmed by SHIRA HA ([id number]), metropolitan editor KAROLINA DE LA O ([id number]) on 06/12/2019 9:38:40 AM Referred By: DC Confirmed By:SHIRA HA
[2019-06-06 22:02] VITALS: BP 93/66; PULSE 84; RESP 17; O2SAT 96
[2019-06-06] MEDS: 0.9% Normal Saline 1,000 ML 999 ML IV (22:04)
[2019-06-06 22:21] LABS: Absolute Lymphocyte Count 1.27 X10^3/uL (0.83-4.51); Absolute Neutrophil Count 7.2 X10^3/uL (2.0-7.7); Basophil# 0.02 X10^3/uL; Basophil% 0.2 % (0-1); Eosinophil# 0.13 X10^3/uL; Eosinophils% 1.4 % (0-5); Hematocrit 33.4 % (37-47); Hemoglobin 10.9 g/dL (12.0-15.0); Lymphocyte # 1.27 X10^3/ul (4.0); Lymphocyte % 13.8 % (19-41); Mean Corp Hgb Conc 32.6 g/dL (32-36); Mean Corpuscular Hgb 28.2 pg (27.0-32.0); Mean Corpuscular Volume 86.5 fL (81-99); Mean Platelet Vol. 10.7 fl (6.2-12.0); Monocyte# 0.56 X10^3/uL; Monocyte% 6.1 % (0-10); NRBC Flagged by Analyzer 0 % (0-5); Neutrophil # 7.17 X10^3/uL (2.7-7.7); Neutrophil % 78.1 % (47-70); Platelet Count 283 K/mm3 (150-450); RBC Distribution Width CV 14.3 % (11.6-14.6); RBC Distribution Width SD 44.8 fl (35.1-43.9); Red Blood Count 3.86 M/mm3 (4.2-5.4); White Blood Count 9.2 K/mm3 (4.4-11.0)
[2019-06-06] MEDS: Ondansetron 4 MG/2 ML Vial IV (22:27)
[2019-06-06 22:30] LABS: Prothrombin Time (Protime)PT. 13.3 SECONDS (11.7-14.9)
[2019-06-06 22:31] LABS: Partial Thromboplast Time 27.1 Seconds (24.1-36.2)
[2019-06-06 22:41] LABS: ALB/GLOB Ratio 0.7 RATIO (0.9-2.4); AST(SGOT) 11 U/L (15-37); Alanine Aminotransfer ALT/SGPT 23 U/L (13-56); Alkaline Phosphatase 146 U/L (45-117); Anion Gap 4 (5-15); BUN 26 mg/dL (7-18); BUN/Creat Ratio 23.4 RATIO (10-20); Chloride 105 mmol/L (98-107); Creatinine, Serum 1.11 mg/dL (0.55-1.02); EST Glomerular Filtration Rate 55 mL/min (>60); Est Glom Filt Rate - Afr Amer 66 mL/min (>60); Estimated Creatinine Clearance 46.36 ml/min; Globulin 4.2 g/dL (2.2-4.2); Glucose 243 mg/dL (74-106); Lactic Acid 1.2 mmol/L (0.4-2.0); Potassium 4.6 mmol/L (3.5-5.1); Protein, Total 7.2 g/dL (6.4-8.2); Sodium Level 136 mmol/L (136-145)
[2019-06-06 23:00] VITALS: BP 109/57; PULSE 87; RESP 17; O2SAT 94
[2019-06-06 23:51] VITALS: BP 118/64; PULSE 86; RESP 17; O2SAT 95
--- NOTE | 2019-06-06 23:51 | ED.DCSUM_ITS ---
History of Present Illness Chief Complaint: Weakness Narrative: Patient presented secondary to nausea vomiting diarrhea and generalized weakness. Patient has a recent history of having surgery secondary to diabetic foot ulcer. Patient states that over the course the last 2 weeks she has been having profuse watery diarrhea multiple episodes per day, she reports even up to 10. Patient states that the diarrhea is loose and watery, non-mucousy, nonbloody. Patient states that in the last 24 hours however she has developed significant nausea and vomiting as well. This is nonbloody and nonbilious. Is not been associated with any abdominal pain. Patient denies any fevers. Patient states she was feeling weak, so she came into the emergency department for further evaluation. Past Medical History - Allergies and Home Meds Allergies/Adverse Reactions: Allergies Penicillins Allergy (Verified 06/06/19 21:47) Shortness of breath metronidazole Adverse Reaction (Verified 06/06/19 21:47) Nausea OXYCONTIN Allergy (Uncoded 05/29/19 13:30) Shortness of breath Primary Care Physician: Raúl Eric MD [Primary Care Provider] - Past Medical History: - - Diabetes Surgical History: angioplasty - with stent., - - Severel R foot toe amputations and I+Ds, BL carpal tunnel surgery 1994, right shoulder surgery in 1994, section x2, most recently LLE I+D. Smoking Status: Never smoker - Family History Paternal Family History: Reports: - - Patient states her father when she was 5 years old, denies known medical history, denies known cardiac history. Maternal Family History: Reports: Cancer - Patient had a brother who had testicular cancer; and later cancer in his stomach., Diabetes, Hypertension, - - Her mother at the age of 67 to a blood clot to the brain. She had had multiple strokes preceding that. Patient had 3 brothers who had bypass surgery in their 50s. Sibling Family History: Reports: - - She has one brother who is secondary to cancer and she does not know what kind of cancer he had. She also has 3 brothers with a history of cardiovascular disease, stents and coronary artery bypass grafting. Review of Systems All systems negative except as indicated General: Reports: Malaise. Denies: Fever Cardiovascular: Denies: Chest pain Respiratory: Denies: Dyspnea Gastrointestinal: Reports: Nausea, Vomiting, Diarrhea. Denies: Abdominal pain Musculoskeletal: Reports: - - Diabetic foot ulcers status post operation Neurological: Reports: Weakness. Denies: Parasthesia, Numbness Physical Exam Vital Signs/Narrative: Vital Signs Temp Pulse Resp BP Pulse Ox 06/06/19 23:00 87 17 109/57 L 94 06/06/19 22:02 84 17 93/66 96 06/06/19 21:48 98.2 F 75 18 93/66 94 Inital Vital Signs reviewed: Yes - Mild hypotension on presentation General: Well nourished, Well developed, No Acute Distress Head: Normocephalic, Atraumatic Eyes: Perrl, EOMI ENT: Moist mucous membranes, No rhinorrhea Neck: Supple, Nontender Cardiovascular: Regular rate, Regular rhythm, No murmurs Respiratory: No distress, CTA bilaterally, Chest nontender Abdomen: Soft, Nontender, Nondistended, Normal bowel sounds Back: Nontender, Normal Inspection Extremities: No edema, - - Patient's dressings from her diabetic foot wounds are clean dry and intact Skin: Normal color, No rash Neurological: Alert, Oriented x3, Cranial nerves II-XII grossly intact, Normal Strength, Normal Sensation Psychological: Normal affect, Normal Mood Diagnostic/Tx/Re-eval - Medical Decision Making Patient presented secondary to nausea vomiting and diarrhea. Patient's diarrhea is associated with recent admission for diabetic foot ulcer so there is at least some concern for the possibility of C. difficile. Cultures were obtained on this patient and she was given fluid resuscitation. Patient was given Zofran for treatment of her nausea. CBC was unremarkable making the diagnosis of C. difficile somewhat less likely. Patient's CMP was also grossly unremarkable and did not show significant evidence of acute kidney injury, acidosis there was an indeterminant elevation of the patient's alkaline phosphatase. No evidence of electrolyte derangements. Patient's abdominal exam is benign I do not believe that imaging is indicated. Repeat evaluation of the patient at 2350 shows symptomatic improvement and improvement of her blood pressures. Her lactic acid was negative. At this point the patient likely is having a diarrheal illness and some concomitant vomiting, but I do not believe that she meets admission criteria at this point. Patient will be sent home with Zofran and instructions to follow-up with primary care for results of her C. difficile panel. Patient understands signs and symptoms which to return. Patient was discharged in im proved condition. ED Disposition - Plan for ED Patient: Disposition: Home or Assisted Living Diagnosis: Nausea vomiting and diarrhea Instructions: GASTROENTERITIS, Viral (6y-Adult) Prescriptions: Ondansetron [Zofran Odt] 4 mg PO Q8H PRN PRN #10 tab PRN Reason: Nausea Prescription Printed Referrals: Raúl Eric MD [Primary Care Provider] - 2 Days
--- NOTE | 2019-06-07 00:06 | NURSING ---
ATTEMPTED TO CALL [facility] HER DAUGHTER BUT JUST RANGED
== END 2019-06-07 01:23 | disposition home or self-care (01) ==
PROVIDERS: Emergency Provider Emergency Medicine; Family Provider Family Medicine; PCP Family Medicine
DX: R11.2 Nausea with vomiting, unspecified (principal); R19.7 Diarrhea, unspecified; E11.621 Type 2 diabetes mellitus with foot ulcer; E11.42 Type 2 diabetes mellitus with diabetic polyneuropathy; L97.522 Non-pressure chronic ulcer of other part of left foot with fat layer exposed; E11.622 Type 2 diabetes mellitus with other skin ulcer; L97.312 Non-pressure chronic ulcer of right ankle with fat layer exposed; I95.9 Hypotension, unspecified; Z91.19 Patient's noncompliance with other medical treatment and regimen; Z79.02 Long term (current) use of antithrombotics/antiplatelets; Z79.4 Long term (current) use of insulin; Z79.899 Other long term (current) drug therapy; Z88.0 Allergy status to penicillin; Z88.1 Allergy status to other antibiotic agents; Z88.5 Allergy status to narcotic agent; Z89.421 Acquired absence of other right toe(s)
CPT/HCPCS: 11042; 80053; 82962; 83605; 85025; 85610; 85730; 87040; 87493; 87506; 93005; 96361; 96374; 99285; J7030; A4216; J2405

== ENCOUNTER 2019-06-12 23:07 | Inpatient (IN) | payer MEDICARE, MEDICAID, SELFPAY ==
[2018-09-21 13:23] VITALS: BMI 29.3
[2019-06-12 23:08] VITALS: BP 160/95; PULSE 113; RESP 18; TEMP 36.4; O2SAT 97; BMI 30.7
--- NOTE | 2019-06-12 23:11 | ED.RN ---
PT STATES SHE WAS SEEN IN [facility] OVER THE WEEKEND FOR THE SAME. HAS ANTIBIOTIC AT THE PHARMACY THAT SHE HASN'T PICKED UP BUT HAS ANOTHER ONE AT HOME THAT STARTS WITH A C THAT SHE CAN TAKE, BUT IS NOT CURRENTLY. PT CALLED DR. PEÑA'S OFFICE ABOUT HER LEG, SPOKE WITH THE NURSE, WHO ADVISED HER NOT TO COME TO THE ED. HAS APPT WITH WOUND CENTER TOMORROW IN AM.
--- NOTE | 2019-06-12 23:14 | ED.RN ---
PT SITTING IN TRIAGE RUBBING LEGS, ROCKING BACK AND FORTH. AT TIMES SHE WILL KICK HER LEG OUT.
--- NOTE | 2019-06-12 23:24 | RAD_ITS ---
STUDY: X-RAY - LEFT FOOT CLINICAL: Female, 53 years old. Multiple skin ulcerations TECHNIQUE: 3 view(s) of the foot. COMPARISON: None. FINDINGS: Normal talus, calcaneus, and tarsal bones. Normal visualized subtalar, talonavicular, calcaneocuboid, tarsal and tarsometatarsal articulations. 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 There is new soft tissue calcification formation at the distal aspect of the remaining fifth metatarsal. Additionally noted is a lucency involving the residual fifth metatarsal. No definite bony destruction. Normal metatarsophalangeal joint of the great toe. Normal tibial and fibular sesamoid bones. Normal interphalangeal joint of the great toe. Normal phalanges of the great toe. Normal second through fifth metatarsophalangeal joints. Normal interphalangeal joints and phalanges of the lesser toes. The soft tissue structures are unremarkable. RAD/Foot min 3 Views IMPRESSION: Status post fifth proximal metatarsal amputation with interval small amount of soft tissue calcification at the distal aspect of the remaining metatarsal. There is also interval development of linear lucency through the residual metatarsal stump representing likely an subacute fracture involving the fifth metatarsal.. There is overlying soft tissue ulceration. Remaining bones and joint spaces are intact. Electronically Signed: Harrison Nuno, at 0:25 EDT Tel , Service support ,
--- NOTE | 2019-06-12 23:31 | ED.DCSUM_ITS ---
History of Present Illness Chief Complaint: Cellulitis Narrative: Patient is a 53-year-old female who presents with a left foot infection. She is diabetic. She has been undergoing wound care for an ulcer on her left foot. She was prescribed Keflex by her corporate director talent assessment, Dr. Guadarrama. However she has unfortunately been noncompliant. She has missed at least a dose every day. Her symptoms were not improving. Her home nurse noted that her left foot was appearing worse. She went to [facility] emergency department and was evaluated and prescribed 2 new antibiotics. She did not fill and start her prescription. She continues to worsen. No fevers. No nausea or vomiting. She is also had diarrhea for 2 weeks. She was recently seen in the emergency department for this. I was able to review cultures. Her stool culture did come back positive for your sending enterocolitis. She is still having diarrhea. Past Medical History - Allergies and Home Meds Allergies/Adverse Reactions: Allergies Penicillins Allergy (Verified 06/12/19 23:24) Shortness of breath metronidazole Adverse Reaction (Verified 06/12/19 23:24) Nausea OXYCONTIN Allergy (Uncoded 06/12/19 23:24) Shortness of breath Primary Care Physician: Raúl Eric MD [Primary Care Provider] - Past Medical History: - - Diabetes, hypertension, hyperlipidemia, coronary disease Surgical History: angioplasty - with stent., - - Severel R foot toe amputations and I+Ds, BL carpal tunnel surgery 1994, right shoulder surgery in 1994, section x2, most recently LLE I+D. Smoking Status: Never smoker - Family History Paternal Family History: Reports: - - Patient states her father when she was 5 years old, denies known medical history, denies known cardiac history. Maternal Family History: Reports: Cancer - Patient had a brother who had testicular c ancer; and later cancer in his stomach., Diabetes, Hypertension, - - Her mother at the age of 67 to a blood clot to the brain. She had had multiple strokes preceding that. Patient had 3 brothers who had bypass surgery in their 50s. Sibling Family History: Reports: - - She has one brother who is secondary to cancer and she does not know what kind of cancer he had. She also has 3 brothers with a history of cardiovascular disease, stents and coronary artery bypass grafting. Review of Systems All systems negative except as indicated General: Denies: Fever Cardiovascular: Denies: Chest pain Respiratory: Denies: Dyspnea Gastrointestinal: Reports: Diarrhea. Denies: Nausea, Vomiting Musculoskeletal: Reports: - - Left foot pain and wound Skin: Reports: Wounds Physical Exam Vital Signs/Narrative: Vital Signs Temp Pulse Resp BP Pulse Ox 06/12/19 23:08 97.6 F L 113 H 18 160/95 H 97 General: Well nourished Head: Normocephalic Eyes: EOMI ENT: Moist mucous membranes Neck: Supple Cardiovascular: - - Heart is regular tachycardia I do not appreciate murmur, gallop, rub Respiratory: No distress, CTA bilaterally Abdomen: Soft Extremities: - - Patient has a 1 cm ulceration on the lateral side of the left foot. She has had a prior fifth toe amputation. The foot is erythematous with soft tissue swelling and hot to the touch. Neurological: Alert Psychological: Normal affect Diagnostic/Tx/Re-eval Impressions Foot X-Ray 06/12/19 23:24 IMPRESSION: Status post fifth proximal metatarsal amputation with interval small amount of soft tissue calcification at the distal aspect of the remaining metatarsal. There is also interval development of linear lucency through the residual metatarsal stump representing likely an subacute fracture involving the fifth metatarsal.. There is overlying soft tissue ulceration. Remaining bones and joint spaces are intact. Electronically Signed: Baljeetjeremiasalla Nuno, at 0:25 EDT Tel , Service support , 06/12/19 23:24 Foot min 3 Views [RAD] Stat Laboratory Results 06/12/19 06/12/19 06/12/19 23:40 23:40 23:40 WBC 8.9 RBC 3.58 L Hgb 10.0 L Hct 31.1 L MCV 86.9 MCH 27.9 MCHC 32.2 RDW Std Deviation 45.8 H RDW Coeff of Firo 14.4 Plt Count 372 MPV 10.5 Immature Gran % (Auto) 0.400 Neut % (Auto) 69.6 Lymph % (Auto) 20.6 [place] % (Auto) 6.9 Eos % (Auto) 1.9 Baso % (Auto) 0.6 Absolute Neuts (auto) 6.2 Absolute Lymphs (auto) 1.83 Nucleated RBC % 0 Sodium 134 L Potassium 4.7 Chloride 101 Carbon Dioxide 27.0 Anion Gap 6 BUN 21 H Creatinine 1.14 H Estim Creat Clear Calc 53.43 Est GFR (MDRD) Af Amer 64 Est GFR (MDRD) Non-Af 53 L BUN/Creatinine Ratio 18.4 Glucose 466 H* Lactic Acid 1.3 Calcium 9.2 - Medical Decision Making Work-up as above. Labs notable only for hyperglycemia with a glucose of 466. Patient did not take her insulin tonight. Her x-ray shows postsurgical changes. She was treated here with IV fluids and IV vancomycin. She was also given Cipro which should cover her recent positive stool culture as well. She will be discussed with the hospitalist and admitted. ED Disposition - Plan for ED Patient: Disposition: Acute Care [facility] Diagnosis: Diabetic foot infection, Enteritis, Yersinia enterocolitica Referrals: Raúl Eric MD [Primary Care Provider] -
[2019-06-12] MEDS: 0.9% Normal Saline 1,000 ML 1000 ML IV (23:42)
[2019-06-13] VITALS (11 sets, daily range): BP systolic 124–209; BP diastolic 59–133; PULSE 81–109; RESP 16–18; TEMP 36.4–37.1; O2SAT 94–99; BMI 32.4
[2019-06-13 00:01] LABS: Absolute Lymphocyte Count 1.83 X10^3/uL (0.83-4.51); Absolute Neutrophil Count 6.2 X10^3/uL (2.0-7.7); Basophil# 0.05 X10^3/uL; Basophil% 0.6 % (0-1); Eosinophil# 0.17 X10^3/uL; Eosinophils% 1.9 % (0-5); Hematocrit 31.1 % (37-47); Lymphocyte # 1.83 X10^3/ul (4.0); Lymphocyte % 20.6 % (19-41); Mean Corp Hgb Conc 32.2 g/dL (32-36); Mean Corpuscular Hgb 27.9 pg (27.0-32.0); Mean Corpuscular Volume 86.9 fL (81-99); Mean Platelet Vol. 10.5 fl (6.2-12.0); Monocyte# 0.61 X10^3/uL; Monocyte% 6.9 % (0-10); NRBC Flagged by Analyzer 0 % (0-5); Neutrophil % 69.6 % (47-70); Platelet Count 372 K/mm3 (150-450); RBC Distribution Width CV 14.4 % (11.6-14.6); RBC Distribution Width SD 45.8 fl (35.1-43.9); Red Blood Count 3.58 M/mm3 (4.2-5.4); White Blood Count 8.9 K/mm3 (4.4-11.0)
[2019-06-13 00:20] LABS: Anion Gap 6 (5-15); BUN 21 mg/dL (7-18); BUN/Creat Ratio 18.4 RATIO (10-20); Calcium,Total 9.2 mg/dL (8.5-10.1); Chloride 101 mmol/L (98-107); Creatinine, Serum 1.14 mg/dL (0.55-1.02); EST Glomerular Filtration Rate 53 mL/min (>60); Est Glom Filt Rate - Afr Amer 64 mL/min (>60); Estimated Creatinine Clearance 53.43 ml/min; Glucose 466 mg/dL (74-106); Potassium 4.7 mmol/L (3.5-5.1); Sodium Level 134 mmol/L (136-145)
--- NOTE | 2019-06-13 00:21 | ED.RN ---
lab called with critical lab results. glucose 466. Dr. Boss made aware. no new orders at this time
[2019-06-13 00:25] LABS: Lactic Acid 1.3 mmol/L (0.4-2.0)
[2019-06-13] MEDS: Ciprofloxacin 400 MG/200 ML BAG 200 MG IV (00:40)
--- NOTE | 2019-06-13 00:48 | PCM.HP.STD ---
Problem List (1) Type 2 diabetes mellitus with diabetic polyneuropathy Status: Chronic (2) Diabetic foot infection Status: Acute History of Present Illness Date of Admission: 06/13/19 Chief Complaint: swelling and pain around left foot wound The patient is a 53 year old F with a significant history of CKD; hypertension; left leg syndrome; diabetic with polyneuropathy; hyperlipidemia; ischemic cardiomyopathy; diabetic wound with multiple toe amputations and feet and who frequently goes to the wound clinic presenting with swelling and pain around left foot wound . Her home care nurse noted an increased swelling and redness around her left foot wound for which reason patient was advised to go to emergency department. She went to emergency department at [facility] where she was given two prescriptions. However she could not flower buncher or picker those prescriptions. Also reportedly she was prescribed Keflex recently but she could not take the Keflex exactly as prescribed. Also patient has diarrhea that has been going for about 2 weeks. On this presentation, at the emergency department she was started on vancomycin. However while the vancomycin was infusing her IV site was noted to be red and she had some itching. She was given Benadryl and the vancomycin was subsequently discontinued. Also patient was started on ciprofloxacin to cover for Yersinia enterocolitica that was seen in her stool cultures about a week ago. Also at the emergency department her blood glucose was severely elevated. She Follows up with Dr. Guadarrama, podiatry and Dr. Lavern Edgar Patient has seen Dr. Tello, infectious disease specialist in the past. Past Medical History Past Medical History (Chronic Problems): Chronic Problems (This Medical Record has been edited. Action required.) Type 2 diabetes mellitus with diabetic polyneuropathy (Chronic) Delayed wound healing (Chronic) Malnutrition (Chronic) Essential (primary) hypertension (Chronic) Ulcer of right lower extremity with fat layer exposed (Chronic) Chronic ulcer of left foot with fat layer exposed (Chronic) Ischemic cardiomyopathy (Chronic) EF 45% Atherosclerosis of [place] coronary artery of [place] heart without angina pectoris (Chronic) PCI-DARA mid LAD w/ 2.25 x 16 mm Promus Synergy, DARA prox LAD w/ 2.5 x 12 mm Promus Synergy 09/21/2018 HLD (hyperlipidemia) (Chronic) Medical History: Medical History (This Medical Record has been edited. Action required.) Essential (primary) hypertension (Chronic) I10 Ulcer of right lower extremity with fat layer exposed (Chronic) L97.912 Chronic ulcer of left foot with fat layer exposed (Chronic) L97.522 Ischemic cardiomyopathy (Chronic) I25.5 EF 45% Atherosclerosis of [place] coronary artery of [place] heart without angina pectoris (Chronic) I25.10 PCI-DARA mid LAD w/ 2.25 x 16 mm Promus Synergy, DARA prox LAD w/ 2.5 x 12 mm Promus Synergy 09/21/2018 NSTEMI (non-ST elevated myocardial infarction) (Resolved) Onset Date: 09/2018 I21.4 HLD (hyperlipidemia) (Chronic) E78.5 Abscess of right lower leg L02.415 diabetic ulcer abscess right lateral malleolus Acquired varus deformity of left foot M21.172 Acquired varus deformity of right foot M21.171 Anxiety F41.9 Back pain, chronic M54.9, G89.29 Cellulitis of foot, left L03.116 cellulitis and abscess of the left foot with possible osteomyelitis Chronic renal failure N18.9 Chronic ulcer of left foot with necrosis of muscle L97.523 Delayed wound healing T14.8XXD Depression F32.9 Diabetic foot ulcer associated with type 2 diabetes mellitus E11.621, L97.509 Diabetic polyneuropathy E11.42 Stage II?3 Diabetic ulcer of right ankle E11.622, L97.319 diabetic ulcer abscess right lateral malleolus GERD (gastroesophageal reflux disease) K21.9 Hypomagnesemia E83.42 Normocytic anemia D64.9 Obesity (BMI 30.0-34.9) E66.9 RLS (restless legs syndrome) Type 2 diabetes mellitus with diabetic polyneuropathy E11.42 Type II diabetes mellitus, uncontrolled E11.65 Osteomyelitis M86.9 Chest pain (Resolved) R07.9 Necrotizing soft tissue infection (Resolved) M79.89 Severe sepsis (Resolved) A41.9, R65.20 Hemoglobin A1c greater than 9.0% (Inactive) R73.09 12.2 Allergies Penicillins Allergy (Verified 06/12/19 23:24) Shortness of breath metronidazole Adverse Reaction (Verified 06/12/19 23:24) Nausea OXYCONTIN Allergy (Uncoded 06/12/19 23:24) Shortness of breath Home Medications: Ambulatory Orders Medication Instructions Recorded Gabapentin [Neurontin] 900 mg PO TIDCM 09/20/18 Atorvastatin Calcium [Lipitor] 80 mg PO QHS 09/23/18 Lisinopril [Zestril] 5 mg PO DAILY 09/23/18 Metoprolol Tartrate [Lopressor 12.5 mg PO BID 09/23/18 (beta kunal)] Clopidogrel Bisulfate [Plavix] 75 mg PO DAILY 12/21/18 Calcium Carbonate [Tums] 500 mg PO Q4H PRN PRN 04/02/19 Melatonin 3 mg PO QHS PRN PRN tab 04/11/19 Multivitamins,Therapeutic 1 tab PO DAILYCM 04/11/19 [Multivitamin] Zinc Sulfate (50mg elemental) 220 mg PO DAILY 04/11/19 [Zinc Sulfate] Insulin Glargine [Lantus SoloStar 25 units SUBCUT BID #1 pen 05/14/19 Pen] Insulin Lispro [Humalog KwikPen] 17 unit SUBCUT TIDCM #1 insuln.pen 05/14/19 Iron Polysaccharide Complex 150 mg PO DAILYCM #30 cap 05/14/19 [Ferrex 150] Paroxetine [Paxil] 20 mg PO QHS #30 tab 05/14/19 Pramipexole Di-HCl [Mirapex] 1.5 mg PO BID #90 tab 05/14/19 Zolpidem Tartrate [Ambien] 5 mg PO QHS PRN PRN #30 tab 05/14/19 Ondansetron [Zofran Odt] 4 mg PO Q8H PRN PRN #10 tab 06/06/19 Surgical History: Surgical History (This Medical Record has been edited. Action required.) History of coronary artery stent placement (Resolved) Onset Date: 09/21/18 Z95.5 PCI-DARA mid LAD w/ 2.25 x 16 mm Promus Synergy, DARA prox LAD w/ 2.5 x 12 mm Promus Synergy 09/21/2018 Surgical History: angioplasty - with stent., - - Severel R foot toe amputations and I+Ds, BL carpal tunnel surgery 1994, right shoulder surgery in 1994, section x2, most recently LLE I+D. Psychiatric History: Anxiety, Depression HALL TENDER History: No pertinent HALL TENDER history Lives: Alone Smoking Status: Never smoker - *Family History Paternal History Items: - - Patient states her father when she was 5 years old, denies known medical history, denies known cardiac history. Maternal History Items: Cancer - Patient had a brother who had testicular cancer; and later cancer in his stomach., Diabetes, Hypertension, - - Her mother at the age of 67 to a blood clot to the brain. She had had multiple strokes preceding that. Patient had 3 brothers who had bypass surgery in their 50s. Sibling History Items: - - She has one brother who is secondary to cancer and she does not know what kind of cancer he had. She also has 3 brothers with a history of cardiovascular disease, stents and coronary artery bypass grafting. Review of Systems Constitutional: Denies: Chills, Fever, Weight Change HEENT: Denies: Head Aches, Sinus Congestion, Sinus Drainage Cardiovascular: Denies: Chest Pain, Palpitations Respiratory: Denies: Cough, Shortness of breath at rest, Sputum production Gastrointestinal: Reports: Diarrhea. Denies: Abdominal Pain, Nausea, Vomiting Genitourinary: Denies: Dysuria Musculoskeletal: Reports: Foot Pain. Denies: Joint Pain Skin: Reports: Skin Changes - Redness of left foot, Wounds - Bilateral leg wounds. Denies: Rash Neurological: Denies: Confusion, Focal weakness Psychiatric: Denies: Anxiety, Depression, Homicidal Ideations, Suicidal Ideations Hematologic/ Lymphatic: Denies: Easy Bruising, Easy Bleeding VTE Information - Inpt Only VTE Present on Admission: No VTE Mechan Device Prophylaxis: None VTE Pharm Prophylaxis ordered?: Yes Patient Problems: Active and Suspected Problems (This Medical Record has been edited. Action required.) Diabetic foot infection (Acute) Enteritis, Yersinia enterocolitica (Acute) - Physical Exam General: Alert, Oriented x3, Cooperative, - - Patient moving her left leg repeatedly HEENT: Atraumatic, PERRLA, EOMI, Normocephalic Neck: Supple, No JVD, Negative Carotid Bruits Lungs: Clear to auscultation, Normal air movement Cardiovascular: Regular rate, No murmurs Abdomen: Bowel Sounds Present, Soft, Non Tender Extremities: - - Deformity of bilateral foot; multiple toe amputations. Skin: - - Right ankle wound. Left plantar wound; Wound of dorsal side of left foot with yellow pus. Musculoskeletal: No Muscle Wasting Neurological: Cranial nerves II-XII grossly intact Psych/Mental Status: Normal Affect, Appropriate Vital Signs Temp Pulse Resp BP Pulse Ox 98.8 F 109 H 18 209/133 H 98 06/13/19 00:41 06/13/19 00:41 06/13/19 00:41 06/13/19 00:41 06/13/19 00:41 Oxygen Delivery Method Room Air Weight: 86.183 kg Body Mass Index (BMI) 30.7 Finger Stick Blood Glucose 182 Laboratory Tests Past 24 Hrs 06/12/19 06/12/19 06/12/19 23:40 23:40 23:40 WBC 8.9 RBC 3.58 L Hgb 10.0 L Hct 31.1 L MCV 86.9 MCH 27.9 MCHC 32.2 RDW Std Deviation 45.8 H RDW Coeff of Fior 14.4 Plt Count 372 MPV 10.5 Immature Gran % (Auto) 0.400 Neut % (Auto) 69.6 Lymph % (Auto) 20.6 [place] % (Auto) 6.9 Eos % (Auto) 1.9 Baso % (Auto) 0.6 Absolute Neuts (auto) 6.2 Absolute Lymphs (auto) 1.83 Nucleated RBC % 0 Sodium 134 L Potassium 4.7 Chloride 101 Carbon Dioxide 27.0 Anion Gap 6 BUN 21 H Creatinine 1.14 H Estim Creat Clear Calc 53.43 Est GFR (MDRD) Af Amer 64 Est GFR (MDRD) Non-Af 53 L BUN/Creatinine Ratio 18.4 Glucose 466 H* Lactic Acid 1.3 Calcium 9.2 Assessment/Plan All Active Problems (This Medical Record has been edited. Action required.) Diarrhea (Acute) Hyperglycemia (Acute) Diabetic foot infection (Acute) Enteritis, Yersinia enterocolitica (Acute) History of coronary artery stent placement (Resolved 09/21/18) NSTEMI (non-ST elevated myocardial infarction) (Resolved 09/2018) Chest pain (Resolved) Intractable nausea and vomiting (Resolved) Malnutrition (Resolved) Necrotizing soft tissue infection (Resolved) Severe sepsis (Resolved) The patient is a 53 year old F with a significant history of CKD; hypertension; left leg syndrome; diabetic with polyneuropathy; hyperlipidemia; ischemic cardiomyopathy; diabetic wound with multiple toe amputations and feet and who who frequently goes to the wound clinic presenting with swelling and pain around left foot wound and found to have pus from the wound consistent with diabetic wound infection. Diabetic foot infection Patient has right ankle wound that does not look infected. She has left plantar foot wound; and on the dorsal part of the left foot she has wound with pus that looks infected. Vancomycin was stopped shelter because of redness at site and itching. Patient was given Benadryl. She reported lightheadedness at the emergency department that probably was from the Benadryl. Received ciprofloxacin for Yersinia enterocolitica which should also help with her infection. Of note patient has SOB and an issue with her throat when she takes penicillin. Discussed with emergency department doctor to start daptomycin. Daptomycin re-ordered inpatient. Home statin discontinued due to increased risk of rhabdomyolysis. We will add Merrem because of risk of Pseudomonas in the setting of patient frequenting wound care center. Consult infectious disease and podiatry to optimize management. Trend CBC. PRN oxycodone; and PRN morphine IV ordered. Zofran for antiemetics as needed. Acute hyperglycemia On presentation her blood glucose was 466. Check ketone level. Patient reports that she has missed some insulin doses. Received 14 units of Humalog at the emergency department. We will put patient on correction scale insulin q. ACHS and 2 AM. Reportedly she takes prandial insulin about 15 units at home. Continue patient on prandial insulin 10 units 3 times daily. Reportedly she takes Lantus 25 units each morning at home; continue. Adjust insulin regimen as necessary. Restless leg syndrome At the emergency department patient was seen repeatedly moving her left leg. She reported that since age 5 she has had restless leg syndrome that is progressively worsened. Continue home Mirapex. Patient received Mirapex in the emergency department. CAD Reportedly she had 1 or 2 stents in September 2018. Metoprolol and lisinopril continued Plavix continued Diabetic polyneuropathy High-dose gabapentin continued. Hypertension On presentation her blood pressure was not within goal Lisinopril and metoprolol continued Trend blood pressure and adjust blood pressure medication CKD stage III Stable DVT Prophylaxis Subcutaneous heparin ordered. Code Visit Inpatient E&M: 17296 Init Hosp L3
--- NOTE | 2019-06-13 00:49 | ED.RN ---
LEFT ARM RED AT IV SITE. PT C/O THAT IT IS REALLY ITCHY. DR JAVIER NOTIFIED. VANCOMYCIN D/C. BENADRYL ORDERED. NOTRIFIUED OF BP200'S, TRANSDATE ORDERED
[2019-06-13] MEDS: Insulin Lispro 100 UNIT/ML INSULN.PEN 14 UNIT SC (00:50)
[2019-06-13] MEDS: 0.9% Normal Saline 1,000 ML 999 ML IV (00:52)
[2019-06-13] MEDS: Pramipexole Di-HCl 1 MG Tablet PO (00:55)
[2019-06-13] MEDS: DiphenhydrAMINE 50 MG/ML Syringe 25 MG IV (00:55)
--- NOTE | 2019-06-13 03:42 | ED.RN ---
see down time charting from 2 am to 4 am
[2019-06-13 03:46] LABS: Bedside Glucose 314 mg/dL (70-110)
[2019-06-13] MEDS: Insulin Lispro 100 UNIT/ML INSULN.PEN SC ×3 (04:02→21:01)
[2019-06-13 06:18] LABS: Absolute Lymphocyte Count 1.36 X10^3/uL (0.83-4.51); Absolute Neutrophil Count 4.9 X10^3/uL (2.0-7.7); Basophil# 0.03 X10^3/uL; Basophil% 0.4 % (0-1); Eosinophil# 0.14 X10^3/uL; Hematocrit 27.2 % (37-47); Hemoglobin 8.6 g/dL (12.0-15.0); Lymphocyte # 1.36 X10^3/ul (4.0); Lymphocyte % 19.5 % (19-41); Mean Corp Hgb Conc 31.6 g/dL (32-36); Mean Corpuscular Volume 88.6 fL (81-99); Mean Platelet Vol. 10.2 fl (6.2-12.0); Monocyte# 0.48 X10^3/uL; Monocyte% 6.9 % (0-10); NRBC Flagged by Analyzer 0 % (0-5); Neutrophil # 4.92 X10^3/uL (2.7-7.7); Neutrophil % 70.8 % (47-70); Platelet Count 323 K/mm3 (150-450); RBC Distribution Width CV 14.3 % (11.6-14.6); RBC Distribution Width SD 46.7 fl (35.1-43.9); Red Blood Count 3.07 M/mm3 (4.2-5.4)
[2019-06-13 06:41] LABS: Anion Gap 7 (5-15); BUN 19 mg/dL (7-18); BUN/Creat Ratio 21.4 RATIO (10-20); Calcium,Total 8.1 mg/dL (8.5-10.1); Chloride 111 mmol/L (98-107); Creatinine, Serum 0.89 mg/dL (0.55-1.02); EST Glomerular Filtration Rate 70 mL/min (>60); Est Glom Filt Rate - Afr Amer 85 mL/min (>60); Estimated Creatinine Clearance 68.43 ml/min; Glucose 205 mg/dL (74-106); Potassium 3.6 mmol/L (3.5-5.1); Sodium Level 141 mmol/L (136-145)
[2019-06-13 06:44] LABS: Erythrocyte Sedimentation Rate 106 mm/hr (0-30)
[2019-06-13] MEDS: oxyCODONE 5 MG Tablet PO ×3 (07:05→21:03)
[2019-06-13] MEDS: Iron Polysaccharide Complex 150 MG CAPSULE PO (08:18)
[2019-06-13] MEDS: Gabapentin 300 MG Capsule 900 MG PO ×3 (08:19→16:46)
[2019-06-13] MEDS: Multivitamins,Therapeutic Tablet 1 TABLET PO (08:19)
[2019-06-13] MEDS: Insulin Lispro 100 UNIT/ML INSULN.PEN 10 UNIT SC ×3 (08:20→17:42)
[2019-06-13 08:35] LABS: Bedside Glucose 142 mg/dL (70-110)
--- NOTE | 2019-06-13 09:06 | NURSING ---
wound photo: right lateral ankle
--- NOTE | 2019-06-13 09:06 | NURSING ---
wound photo: left lateral foot
--- NOTE | 2019-06-13 09:07 | NURSING ---
wound photo: left plantar foot
[2019-06-13] MEDS: Metoprolol Tartrate 25 MG Tablet 12.5 MG PO ×2 (10:42→21:01)
[2019-06-13] MEDS: Glucerna Shake 120 ML LIQUID PO ×4 (10:42→21:11)
[2019-06-13] MEDS: Clopidogrel Bisulfate 75 MG Tablet PO (10:42)
[2019-06-13] MEDS: Pramipexole Di-HCl 1 MG Tablet 1.5 MG PO ×2 (10:43→21:03)
[2019-06-13] MEDS: Morphine 2 MG/ML Syringe IV (10:46)
[2019-06-13] MEDS: 0.9% NaCl Peripheral Flush Adult/Peds IV ×3 (10:47→21:04)
[2019-06-13 10:56] LABS: Bedside Glucose 132 mg/dL (70-110)
--- NOTE | 2019-06-13 11:37 | NURSING ---
This RN was notified by VIJAY Truong that pt has a visitor that brought an in to visit. Patient is on isolation due to past bacterial infection and as we await wound cultures. Both visitor and patient notified that infant must be taken out of room and explained that it is to protect . Understanding verbalized and visitor states that she is on her way out. This RN thanked both visitor and patient.
--- NOTE | 2019-06-13 12:06 | MRI_ITS ---
HISTORY:OOsteomyelitis LEFT FOOTopen wound MT's , top and plantar area since 12/2018, surgery in 12/2018, fever , pain OOsteomyelitis LEFT FOOTopen wound MT's , top and plantar area since 12/2018, surgery in 12/2018, fever , pain EXAMINATION: MR Forefoot WO/W Contrast TECHNIQUE: Multiplanar and multisequence MR images of the left forefoot... IV Contrast dosage and agent: 18 cc of dotarem COMPARISON: April 08, 2019 FINDINGS: BONE: Again noted is abnormal signal seen within the navicular, the medial and lateral cuneiform as well as the middle cuneiform. These changes were seen on the prior study. Again noted is amputation of the majority of the fifth ray. Abnormal signal is seen within the remnant of the fifth ray on both T1 and T2-weighted images. This is new since the prior study and is compatible with osteomyelitis. Abnormal signal is also seen at the base of the fourth metatarsal which has increased when compared to prior study. This is seen on both T1 and T2-weighted images at the plantar surface of the proximal metaphysis seen best on sagittal image 10 series 8. This has the appearance of a cortical breakthrough and is also suspect for early osteomyelitis. Abnormal signal at the base of the third metatarsal is most likely secondary to stress reaction with similar changes at the base of the second metatarsal. These changes were seen on the prior study SOFT TISSUES: There is diffuse subcutaneous edema at the foot that enhances with contrast compatible with cellulitis. A defect is seen at the lateral dorsal aspect of the foot seen best in axial postcontrast image 17 series 9 spoke for fistulous tract. This extends to the soft tissue lateral to and adjacent to the base of the fourth metatarsal and is suspect for an abscess. This area from the skin surface extends approximately 3.3 cm in craniocaudad and approximately 1.2 cm transverse. It also extends approximately 3 cm AP. Suspect foci of gas within the soft tissues best seen on sagittal images 4. Also seen on axial postcontrast image 15. Enhancement of the intrinsic muscles of the foot seen at the dorsum of the foot as well as at the lateral and lateral inferior aspect of the foot compatible with myositis. Fluid is seen surrounding the extensor digitorum tendons compatible with tenosynovitis. This may be infectious tenosynovitis. Similar changes involving the posterior tibialis tendon and the flexor digitorum tendon at the level of the sustentaculum juanjose. MRI/Lower Ext No Joint W/WO Cont IMPRESSION: Findings compatible with osteomyelitis involving the fifth metatarsal remnant. There is also osteomyelitis involving the base of the fourth metatarsal. Diffuse cellulitis. Myositis as discussed There is an abscess seen adjacent to the base of the fourth metatarsal extending from the skin surface as discussed Again noted are probable neuropathic is in the midfoot. at 2127 Reported and signed by: Milli Wyatt DO Electronically Signed: Milli Wyatt DO at 21:25 EDT Tel , Service support ,
--- NOTE | 2019-06-13 12:08 | CON.PCM_ITS ---
Problem List (1) Diabetic foot infection Status: Acute Reason for Consult: foot infection Consulted by: Dr. Perez History of Present Illness: The patient is a 53 year old F with h/o recurrent foot osteo, presented yesterday with 1-2 days of L foot pain/swelling/redness/purulent drainage. Had some associated fever, nausea, headache. Treated for infected R lateral ankle ulcer with keflex a few weeks ago by Dr. Guadarrama. Also c/o diarrhea for past 2 weeks, slowly improving. Seen in [place] ED, given abx which she had not filled. With worsening foot, did start taking some leftover keflex. Came to ED, had some rash and itching with vanc, given cipro for yersinia in stool, admitted on dapto/meropenem. Feeling better, redness streaking up LLE improved. Full ROS performed and neg except as noted above. - Medical History Past Medical History (Chronic Problems): Chronic Problems (This Medical Record has been edited. Action required.) Type 2 diabetes mellitus with diabetic polyneuropathy (Chronic) Delayed wound healing (Chronic) Malnutrition (Chronic) Essential (primary) hypertension (Chronic) Ulcer of right lower extremity with fat layer exposed (Chronic) Chronic ulcer of left foot with fat layer exposed (Chronic) Ischemic cardiomyopathy (Chronic) EF 45% Atherosclerosis of [place] coronary artery of [place] heart without angina pectoris (Chronic) PCI-DARA mid LAD w/ 2.25 x 16 mm Promus Synergy, DARA prox LAD w/ 2.5 x 12 mm Promus Synergy 09/21/2018 HLD (hyperlipidemia) (Chronic) Allergies/Adverse Reactions: Allergies Penicillins Allergy (Verified 06/12/19 23:24) Shortness of breath vancomycin Allergy (Verified 06/13/19 00:58) Itching metronidazole Adverse Reaction (Verified 06/12/19 23:24) Nausea OXYCONTIN Allergy (Uncoded 06/12/19 23:24) Shortness of breath Home Medications: Ambulatory Orders Medication Instructions Recorded Gabapentin [Neurontin] 900 mg PO TIDCM 09/20/18 Atorvastatin Calcium [Lipitor] 80 mg PO QHS 09/23/18 Lisinopril [Zestril] 5 mg PO DAILY 09/23/18 Metoprolol Tartrate [Lopressor 12.5 mg PO BID 09/23/18 (beta kunal)] Clopidogrel Bisulfate [Plavix] 75 mg PO DAILY 12/21/18 Calcium Carbonate [Tums] 500 mg PO Q4H PRN PRN 04/02/19 Melatonin 3 mg PO QHS PRN PRN tab 04/11/19 Multivitamins,Therapeutic 1 tab PO DAILYCM 04/11/19 [Multivitamin] Zinc Sulfate (50mg elemental) 220 mg PO DAILY 04/11/19 [Zinc Sulfate] Insulin Glargine [Lantus SoloStar 25 units SUBCUT BID #1 pen 05/14/19 Pen] Insulin Lispro [Humalog KwikPen] 17 unit SUBCUT TIDCM #1 insuln.pen 05/14/19 Iron Polysaccharide Complex 150 mg PO DAILYCM #30 cap 05/14/19 [Ferrex 150] Paroxetine [Paxil] 20 mg PO QHS #30 tab 05/14/19 Pramipexole Di-HCl [Mirapex] 1.5 mg PO BID #90 tab 05/14/19 Zolpidem Tartrate [Ambien] 5 mg PO QHS PRN PRN #30 tab 05/14/19 Ondansetron [Zofran Odt] 4 mg PO Q8H PRN PRN #10 tab 06/06/19 - Social History SMOKING STATUS:: Never smoker Vital Signs Temp Pulse Resp BP Pulse Ox 98 F 95 16 126/59 H 99 06/13/19 10:29 06/13/19 10:42 06/13/19 10:29 06/13/19 10:42 06/13/19 10:29 Oxygen Delivery Method Room Air Weight: 91.1 kg Body Mass Index (BMI) 32.4 Finger Stick Blood Glucose 182 Microbiology Past 72 Hours 06/13/19 01:20 Gram Stain - Final Wound - Left Foot Laboratory Tests Past 24 Hrs 06/12/19 06/12/19 06/12/19 23:40 23:40 23:40 WBC 8.9 RBC 3.58 L Hgb 10.0 L Hct 31.1 L MCV 86.9 MCH 27.9 MCHC 32.2 RDW Std Deviation 45.8 H RDW Coeff of Fior 14.4 Plt Count 372 MPV 10.5 Immature Gran % (Auto) 0.400 Neut % (Auto) 69.6 Lymph % (Auto) 20.6 [place] % (Auto) 6.9 Eos % (Auto) 1.9 Baso % (Auto) 0.6 Absolute Neuts (auto) 6.2 Absolute Lymphs (auto) 1.83 Nucleated RBC % 0 ESR Sodium 134 L Potassium 4.7 Chloride 101 Carbon Dioxide 27.0 Anion Gap 6 BUN 21 H Creatinine 1.14 H Estim Creat Clear Calc 53.43 Est GFR (MDRD) Af Amer 64 Est GFR (MDRD) Non-Af 53 L BUN/Creatinine Ratio 18.4 Glucose 466 H* Lactic Acid 1.3 Calcium 9.2 C-React Prot Ext Range Acetone Level S.aureus Protein A PCR MRSA (PCR) 06/12/19 06/13/19 06/13/19 23:40 05:45 05:45 WBC 7.0 RBC 3.07 L Hgb 8.6 L Hct 27.2 L MCV 88.6 MCH 28.0 MCHC 31.6 L RDW Std Deviation 46.7 H RDW Coeff of Fior 14.3 Plt Count 323 MPV 10.2 Immature Gran % (Auto) 0.400 Neut % (Auto) 70.8 H Lymph % (Auto) 19.5 [place] % (Auto) 6.9 Eos % (Auto) 2.0 Baso % (Auto) 0.4 Absolute Neuts (auto) 4.9 Absolute Lymphs (auto) 1.36 Nucleated RBC % 0 ESR Sodium 141 Potassium 3.6 Chloride 111 H Carbon Dioxide 23.0 Anion Gap 7 BUN 19 H Creatinine 0.89 Estim Creat Clear Calc 68.43 Est GFR (MDRD) Af Amer 85 Est GFR (MDRD) Non-Af 70 BUN/Creatinine Ratio 21.4 H Glucose 205 H Lactic Acid Calcium 8.1 L C-React Prot Ext Range 35.60 H Acetone Level NEGATIVE S.aureus Protein A PCR MRSA (PCR) 06/13/19 06/13/19 05:45 11:50 WBC RBC Hgb Hct MCV MCH MCHC RDW Std Deviation RDW Coeff of Fior Plt Count MPV Immature Gran % (Auto) Neut % (Auto) Lymph % (Auto) [place] % (Auto) Eos % (Auto) Baso % (Auto) Absolute Neuts (auto) Absolute Lymphs (auto) Nucleated RBC % ESR 106 H Sodium Potassium Chloride Carbon Dioxide Anion Gap BUN Creatinine Estim Creat Clear Calc Est GFR (MDRD) Af Amer Est GFR (MDRD) Non-Af BUN/Creatinine Ratio Glucose Lactic Acid Calcium C-React Prot Ext Range Acetone Level S.aureus Protein A PCR Pending MRSA (PCR) Pending - Other Studies Radiology: [] reviewed Other Studies: [] Route of nutrition/ use of supplements: [] Nutritional Intake: [] IV Site: [] Tirado Catheter: [] - Physical Exam General: Alert, Oriented x3, Cooperative, No apparent distress HEENT: Atraumatic, PERRLA, EOMI Neck: Supple, No Nodes Lungs: Clear to auscultation, Normal air movement Cardiovascular: Regular rate, Regular Rhythm Abdomen: Soft, Non Tender, Non-Distended Extremities: Edema Skin: Ulcer/ Wound - L lateral foot probes to bone; surrounding redness and swelling IV Site: Peripheral, without redness Musculoskeletal: No Tenderness to Palpation of Joints or Extremities Neurological: Cranial nerves II-XII grossly intact - Assessment/Plan Antibiotics: [] Assessment/Plan: [] Active and Suspected Problems (This Medical Record has been edited. Action requi red.) Diabetic foot infection (Acute) Enteritis, Yersinia enterocolitica (Acute) L foot osteomyelitis with uncontrolled DM, recurrent infections - will culture foot and do staph pcr. Ordering MRI to look for abscess. Change dapto to vanc at slow infusion rate for suspected Red Man. Has tolerated vanc in past without issue. Will pre-treat with benadryl. Tolerates cephalosporins generally, but will continue meropenem for now. Will follow, thank you, d/w Dr. Guadarrama.
--- NOTE | 2019-06-13 12:37 | PCM.CONS.GEN ---
Reason for Consult Date of Consultation: 06/13/19 Reason for Consultation: Recurrent left foot infection History of Present Illness: The patient is a 53 year old female with uncontrolled diabetes and other comorbidities was admitted for recurrent left foot infection. She had completed course of antibiotics of osteomyelitis left foot, was healing well, she relates she did walk on her foot, was suppose to be nonweightbearing, noted foot became red and swollen, she went to [place] ER was prescribed antibiotics which she did not take. Redness and worsening noted and she has been admitted for further treatment and management. She has diarrhea as well, does not relate to any fever or chills. Past Medical History Past Medical History (Chronic Problems): Chronic Problems (This Medical Record has been edited. Action required.) Type 2 diabetes mellitus with diabetic polyneuropathy (Chronic) Delayed wound healing (Chronic) Malnutrition (Chronic) Essential (primary) hypertension (Chronic) Ulcer of right lower extremity with fat layer exposed (Chronic) Chronic ulcer of left foot with fat layer exposed (Chronic) Ischemic cardiomyopathy (Chronic) EF 45% Atherosclerosis of [place] coronary artery of [place] heart without angina pectoris (Chronic) PCI-DAAR mid LAD w/ 2.25 x 16 mm Promus Synergy, DARA prox LAD w/ 2.5 x 12 mm Promus Synergy 09/21/2018 HLD (hyperlipidemia) (Chronic) Medical History: Medical History (This Medical Record has been edited. Action required.) Essential (primary) hypertension (Chronic) I10 Ulcer of right lower extremity with fat layer exposed (Chronic) L97.912 Chronic ulcer of left foot with fat layer exposed (Chronic) L97.522 Ischemic cardiomyopathy (Chronic) I25.5 EF 45% Atherosclerosis of [place] coronary artery of [place] heart without angina pectoris (Chronic) I25.10 PCI-DARA mid LAD w/ 2.25 x 16 mm Promus Synergy, DARA prox LAD w/ 2.5 x 12 mm Promus Synergy 09/21/2018 NSTEMI (non-ST elevated myocardial infarction) (Resolved) Onset Date: 09/2018 I21.4 HLD (hyperlipidemia) (Chronic) E78.5 Abscess of right lower leg L02.415 diabetic ulcer abscess right lateral malleolus Acquired varus deformity of left foot M21.172 Acquired varus deformity of right foot M21.171 Anxiety F41.9 Back pain, chronic M54.9, G89.29 Cellulitis of foot, left L03.116 cellulitis and abscess of the left foot with possible osteomyelitis Chronic renal failure N18.9 Chronic ulcer of left foot with necrosis of muscle L97.523 Delayed wound healing T14.8XXD Depression F32.9 Diabetic foot ulcer associated with type 2 diabetes mellitus E11.621, L97.509 Diabetic polyneuropathy E11.42 Stage II?3 Diabetic ulcer of right ankle E11.622, L97.319 diabetic ulcer abscess right lateral malleolus GERD (gastroesophageal reflux disease) K21.9 Hypomagnesemia E83.42 Normocytic anemia D64.9 Obesity (BMI 30.0-34.9) E66.9 RLS (restless legs syndrome) Type 2 diabetes mellitus with diabetic polyneuropathy E11.42 Type II diabetes mellitus, uncontrolled E11.65 Osteomyelitis M86.9 Chest pain (Resolved) R07.9 Necrotizing soft tissue infection (Resolved) M79.89 Severe sepsis (Resolved) A41.9, R65.20 Hemoglobin A1c greater than 9.0% (Inactive) R73.09 12.2 Allergies Penicillins Allergy (Verified 06/12/19 23:24) Shortness of breath vancomycin Allergy (Verified 06/13/19 00:58) Itching metronidazole Adverse Reaction (Verified 06/12/19 23:24) Nausea OXYCONTIN Allergy (Uncoded 06/12/19 23:24) Shortness of breath Home Medications: Ambulatory Orders Medication Instructions Recorded Gabapentin [Neurontin] 900 mg PO TIDCM 09/20/18 Atorvastatin Calcium [Lipitor] 80 mg PO QHS 09/23/18 Lisinopril [Zestril] 5 mg PO DAILY 09/23/18 Metoprolol Tartrate [Lopressor 12.5 mg PO BID 09/23/18 (beta kunal)] Clopidogrel Bisulfate [Plavix] 75 mg PO DAILY 12/21/18 Calcium Carbonate [Tums] 500 mg PO Q4H PRN PRN 04/02/19 Melatonin 3 mg PO QHS PRN PRN tab 04/11/19 Multivitamins,Therapeutic 1 tab PO DAILYCM 04/11/19 [Multivitamin] Zinc Sulfate (50mg elemental) 220 mg PO DAILY 04/11/19 [Zinc Sulfate] Insulin Glargine [Lantus SoloStar 25 units SUBCUT BID #1 pen 05/14/19 Pen] Insulin Lispro [Humalog KwikPen] 17 unit SUBCUT TIDCM #1 insuln.pen 05/14/19 Iron Polysaccharide Complex 150 mg PO DAILYCM #30 cap 05/14/19 [Ferrex 150] Paroxetine [Paxil] 20 mg PO QHS #30 tab 05/14/19 Pramipexole Di-HCl [Mirapex] 1.5 mg PO BID #90 tab 05/14/19 Zolpidem Tartrate [Ambien] 5 mg PO QHS PRN PRN #30 tab 05/14/19 Ondansetron [Zofran Odt] 4 mg PO Q8H PRN PRN #10 tab 06/06/19 Surgical History: Surgical History (This Medical Record has been edited. Action required.) History of coronary artery stent placement (Resolved) Onset Date: 09/21/18 Z95.5 PCI-DARA mid LAD w/ 2.25 x 16 mm Promus Synergy, DARA prox LAD w/ 2.5 x 12 mm Promus Synergy 09/21/2018 Surgical History: angioplasty - with stent., - - Severel R foot toe amputations and I+Ds, BL carpal tunnel surgery 1994, right shoulder surgery in 1994, section x2, most recently LLE I+D. 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 Maternal History Items: Cancer - Patient had a brother who had testicular cancer; and later cancer in his stomach., Diabetes, Hypertension, - - Her mother at the age of 67 to a blood clot to the brain. She had had multiple strokes preceding that. Patient had 3 brothers who had bypass surgery in their 50s. Sibling History Items: - - She has one brother who is secondary to cancer and she does not know what kind of cancer he had. She also has 3 brothers with a history of cardiovascular disease, stents and coronary artery bypass grafting. Review of Systems Constitutional: Denies: Chills, Fever Gastrointestinal: Denies: Vomiting Skin: Reports: Wounds Patient Problems: Active and Suspected Problems (This Medical Record has been edited. Action required.) Diabetic foot infection (Acute) Enteritis, Yersinia enterocolitica (Acute) - Physical Exam General: Alert, Oriented x3, Cooperative, No apparent distress Extremities: Capillary Refill Less than 3 Seconds, No Calf Tenderness, - - Left foot with 2 ulcerations to the lateral forefoot, one is plantar which is larger and down to the subcutaneous tissue layer, some nonviable tissue but no maloder, no necrosis, no cellulitis to the plantar foot, no probe to bone. Second ulceration is dorsal lateral left foot with fibrotic tissue, probes to metatarsal bone, there is surrounding cellulitis which she relates it improved today, there is no visible abscess, no maloder, no crepitus, no fluctuance noted to the foot. Vascular status appears intact to the foot. Musculoskeletal: No Tenderness to Palpation of Joints or Extremities, - - s/p 5th toe amputation Vital Signs Temp Pulse Resp BP Pulse Ox 98 F 95 16 126/59 H 99 06/13/19 10:29 06/13/19 10:42 06/13/19 10:29 06/13/19 10:42 06/13/19 10:29 Oxygen Delivery Method Room Air Weight: 91.1 kg Body Mass Index (BMI) 32.4 Finger Stick Blood Glucose 182 Intake and Output for Last 24 Hours 06/11/19 06/12/19 06/13/19 23:59 23:59 23:59 Intake Total 2558.67 / 2558.67 Balance 2558.67 / 2558.67 Microbiology Past 72 Hours 06/13/19 01:20 Gram Stain - Final Wound - Left Foot Laboratory Tests Past 24 Hrs 06/12/19 06/12/19 06/12/19 23:40 23:40 23:40 WBC 8.9 RBC 3.58 L Hgb 10.0 L Hct 31.1 L MCV 86.9 MCH 27.9 MCHC 32.2 RDW Std Deviation 45.8 H RDW Coeff of Fior 14.4 Plt Count 372 MPV 10.5 Immature Gran % (Auto) 0.400 Neut % (Auto) 69.6 Lymph % (Auto) 20.6 [place] % (Auto) 6.9 Eos % (Auto) 1.9 Baso % (Auto) 0.6 Absolute Neuts (auto) 6.2 Absolute Lymphs (auto) 1.83 Nucleated RBC % 0 ESR Sodium 134 L Potassium 4.7 Chloride 101 Carbon Dioxide 27.0 Anion Gap 6 BUN 21 H Creatinine 1.14 H Estim Creat Clear Calc 53.43 Est GFR (MDRD) Af Amer 64 Est GFR (MDRD) Non-Af 53 L BUN/Creatinine Ratio 18.4 Glucose 466 H* Lactic Acid 1.3 Calcium 9.2 C-React Prot Ext Range Acetone Level S.aureus Protein A PCR MRSA (PCR) 06/12/19 06/13/19 06/13/19 23:40 05:45 05:45 WBC 7.0 RBC 3.07 L Hgb 8.6 L Hct 27.2 L MCV 88.6 MCH 28.0 MCHC 31.6 L RDW Std Deviation 46.7 H RDW Coeff of Fior 14.3 Plt Count 323 MPV 10.2 Immature Gran % (Auto) 0.400 Neut % (Auto) 70.8 H Lymph % (Auto) 19.5 [place] % (Auto) 6.9 Eos % (Auto) 2.0 Baso % (Auto) 0.4 Absolute Neuts (auto) 4.9 Absolute Lymphs (auto) 1.36 Nucleated RBC % 0 ESR Sodium 141 Potassium 3.6 Chloride 111 H Carbon Dioxide 23.0 Anion Gap 7 BUN 19 H Creatinine 0.89 Estim Creat Clear Calc 68.43 Est GFR (MDRD) Af Amer 85 Est GFR (MDRD) Non-Af 70 BUN/Creatinine Ratio 21.4 H Glucose 205 H Lactic Acid Calcium 8.1 L C-React Prot Ext Range 35.60 H Acetone Level NEGATIVE S.aureus Protein A PCR MRSA (PCR) 06/13/19 06/13/19 05:45 11:50 WBC RBC Hgb Hct MCV MCH MCHC RDW Std Deviation RDW Coeff of Fior Plt Count MPV Immature Gran % (Auto) Neut % (Auto) Lymph % (Auto) [place] % (Auto) Eos % (Auto) Baso % (Auto) Absolute Neuts (auto) Absolute Lymphs (auto) Nucleated RBC % ESR 106 H Sodium Potassium Chloride Carbon Dioxide Anion Gap BUN Creatinine Estim Creat Clear Calc Est GFR (MDRD) Af Amer Est GFR (MDRD) Non-Af BUN/Creatinine Ratio Glucose Lactic Acid Calcium C-React Prot Ext Range Acetone Level S.aureus Protein A PCR Pending MRSA (PCR) Pending POC Glucose 06/13/19 06/13/1919 10:41 08:13 03:39 POC Glucose 132 H 142 H 314 H Assessment/Plan All Active Problems (This Medical Record has been edited. Action required.) Diarrhea (Acute) Hyperglycemia (Acute) Diabetic foot infection (Acute) Enteritis, Yersinia enterocolitica (Acute) History of coronary artery stent placement (Resolved 09/21/18) NSTEMI (non-ST elevated myocardial infarction) (Resolved 09/2018) Chest pain (Resolved) Intractable nausea and vomiting (Resolved) Malnutrition (Resolved) Necrotizing soft tissue infection (Resolved) Severe sepsis (Resolved) Left foot ulcerations, one down to subcutaneous tissue and other down to bone with cellulitis and concern for recurrent osteomyelitis Uncontrolled diabetes with peripheral neuropathy Reviewed findings, reviewed left foot xrays, new MRI has been ordered for further evaluation. Cultures have been obtained, and Infectious Disease/Dr. Tello managing antibiotics. Ulcerations were cleansed, and debrided in selective fashion removing nonviable tissue. Continue with daily aquacel Ag and gauze dressing changes. No weightbearing left foot. Patient also has right ankle ulceration - continue with daily dressing changes and offloading. Podiatry will continue to follow. Thank you for consultation.
[2019-06-13 13:34] LABS: M R Staph aureus DNA By PCR Negative (Negative); Probe Check PASS; Specimen Processing Control PASS; Staph aureus DNA By PCR POSITIVE (Negative)
[2019-06-13] MEDS: DiphenhydrAMINE 25 MG Capsule PO (13:35)
[2019-06-13] MEDS: Heparin Injection (Vial) 5,000 UNIT/ML VIAL 5000 UNIT SC ×2 (13:35→21:00)
[2019-06-13] MEDS: Lisinopril 5 MG Tablet PO (13:39)
--- NOTE | 2019-06-13 14:40 | CASEMGMT ---
Attempted to see pt x2 for CM assessment without success, pt is getting care for RN at this time. Will attempt again later. SStaten RN CM
--- NOTE | 2019-06-13 16:09 | PCM.RX.CS ---
Consult Pharmacy has been consulted to manage selected antiobiotic: Vancomycin Type of Consult: New start Suspected Infection: Skin/Soft tissue Prior Doses of Antibiotics Received/Current Regimen: RECIEVED 1250MG X1 ON 06/13/2019 @1435 Labs: Sodium 141 mmol/L (136-145) 06/13/19 05:45 Potassium 3.6 mmol/L (3.5-5.1) 06/13/19 05:45 Chloride 111 mmol/L (98-107) H 06/13/19 05:45 Carbon Dioxide 23.0 mmol/L (21.0-32.0) 06/13/19 05:45 7 (5-15) 06/13/19 05:45 BUN 19 mg/dL (7-18) H 06/13/19 05:45 0.89 mg/dL (0.55-1.02) 06/13/19 05:45 Est GFR (MDRD) Af Amer 85 mL/min (>60) 06/13/19 05:45 Est GFR (MDRD) Non-Af 70 mL/min (>60) 06/13/19 05:45 21.4 RATIO (10-20) H 06/13/19 05:45 Glucose 205 mg/dL (74-106) H 06/13/19 05:45 Microbiology: Microbiology 06/13/19 01:20 Wound - Left Foot Gram Stain - Final Weight used for dosin.1 kg Estimated Creatinine Clearance: ~68MLS/MIN Goal Trough: 15-20 mcg/mL Pharmacy Plan for Drug Dosing: WILL BEGIN 1GM IV Q12H STARTING AT 0300 ON 06/14/19. WILL GET TROUGH LEVEL BEFORE 4TH DOSE ON 06/15/19 Pharmacy Service will continue to monitor and adjust dosing as required. Follow-Up Labs: Trough Vancomycin - 06/15/19 @0230 BEFORE 3AM DOSE
[2019-06-13 16:50] LABS: Bedside Glucose 190 mg/dL (70-110)
--- NOTE | 2019-06-13 17:30 | NURSING ---
This RN called MRI and spoke with Erica regarding time for pt's MRI. Notified that they are delayed and plan to complete MRI in about 1 hour.
--- NOTE | 2019-06-13 20:27 | PCM.HOSP.N ---
Hospitalist Note Patient was seen and examined today briefly, she was admitted for a neuropathic infection of her foot secondary to type 2 diabetes with neuropathy. Patient states that she has been diabetic since her early 20s, she states she has never seen an technical healthcare consultant-she does admit to seeing JENNIFER quevedo who was a nurse practitioner working in the endocrinology area. Patient states that she has never been on an insulin pump, she states the lowest she can remember her A1c ever being was 9.9. Patient's last hospitalization here was in April 2019 for a deep wound infection of her left foot with strep agalactiae and methicillin sensitive staph aureus. During that hospitalization, her A1c was checked and it was 12.3. Hemoglobin A1c is on record here at this hospital dating back to 2013 show that her lowest hemoglobin A1c was 10.9. Patient is going to undergo an MRI of her left foot tonight, infectious diseases and podiatry of seeing the patient today. This examiner feels that the patient is probably not compliant with her treatment of her type 1 diabetes.
[2019-06-13] MEDS: 0.9% NaCl IVPB Med Flush (250 mL) 15 ML IV (21:02)
[2019-06-13] MEDS: Paroxetine 20 MG Tablet PO (21:03)
[2019-06-13 21:16] LABS: Bedside Glucose 218 mg/dL (70-110)
[2019-06-13] MEDS: Acetaminophen 325 MG Tablet 650 MG PO (22:19)
[2019-06-14] VITALS (16 sets, daily range): BP systolic 111–185; BP diastolic 67–95; PULSE 73–90; RESP 14–18; TEMP 35.8–36.9; O2SAT 93–99
[2019-06-14] MEDS: DiphenhydrAMINE 25 MG Capsule PO ×2 (02:29→14:10)
[2019-06-14 02:36] LABS: Bedside Glucose 144 mg/dL (70-110)
[2019-06-14] MEDS: 0.9% NaCl Peripheral Flush Adult/Peds IV ×4 (03:11→23:02)
[2019-06-14] MEDS: Vancomycin IV 1,000 MG/200 ML BAG 100 MG IV ×2 (03:11→14:47)
[2019-06-14] MEDS: Heparin Injection (Vial) 5,000 UNIT/ML VIAL 5000 UNIT SC (05:46)
[2019-06-14] MEDS: Insulin Lispro 100 UNIT/ML INSULN.PEN 10 UNIT SC (08:28)
[2019-06-14] MEDS: Insulin Lispro 100 UNIT/ML INSULN.PEN SC ×2 (08:29→22:47)
[2019-06-14] MEDS: Multivitamins,Therapeutic Tablet 1 TABLET PO (08:35)
[2019-06-14] MEDS: Lisinopril 5 MG Tablet PO (08:35)
[2019-06-14] MEDS: Iron Polysaccharide Complex 150 MG CAPSULE PO (08:35)
[2019-06-14] MEDS: Metoprolol Tartrate 25 MG Tablet 12.5 MG PO ×2 (08:35→22:48)
[2019-06-14] MEDS: Clopidogrel Bisulfate 75 MG Tablet PO (08:36)
[2019-06-14] MEDS: Glucerna Shake 120 ML LIQUID PO ×2 (08:36→22:46)
[2019-06-14] MEDS: Pramipexole Di-HCl 1 MG Tablet 1.5 MG PO ×2 (08:36→22:49)
[2019-06-14] MEDS: Gabapentin 300 MG Capsule 900 MG PO (08:36)
[2019-06-14 08:46] LABS: Bedside Glucose 217 mg/dL (70-110)
[2019-06-14] MEDS: oxyCODONE 5 MG Tablet PO ×2 (09:34→22:46)
--- NOTE | 2019-06-14 10:41 | PN.ID_ITS ---
Patient Problems: Active and Suspected Problems (This Medical Record has been edited. Action required.) Diabetic foot infection (Acute) Enteritis, Yersinia enterocolitica (Acute) Subjective: Feeling ok, no diarrhea, OR planned, no fever, no rash/itching with iv vanc. - Physical Exam General: Alert, Cooperative, No apparent distress Lungs: Clear to auscultation, Normal air movement Cardiovascular: Regular rate, Regular Rhythm Abdomen: Soft, Non Tender, Non-Distended Skin: Ulcer/ Wound - Foot wrapped Vital Signs Temp Pulse Resp BP Pulse Ox 97.9 F 81 14 162/67 H 98 06/14/19 08:23 06/14/19 08:35 06/14/19 08:23 06/14/19 09:37 06/14/19 08:23 Oxygen Delivery Method Room Air Weight: 91.1 kg Body Mass Index (BMI) 32.4 Finger Stick Blood Glucose 182 Intake and Output for Last 24 Hours 06/12/19 06/13/19 06/14/19 23:59 23:59 23:59 Intake Total 4404.17 / 4404.17 394.50 / 394.50 Output Total 400 / 400 Balance 4004.17 / 4004.17 394.50 / 394.50 Microbiology Past 72 Hours 06/13/19 01:20 Gram Stain - Final Wound - Left Foot Wound Culture - Preliminary GNR 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 Action required.) Diabetic foot infection (Acute) Enteritis, Yersinia enterocolitica (Acute) MSSA L foot osteomyelitis with uncontrolled DM, recurrent infections - MRI showed osteo and abscess, surgical I&D planned. Tolerating vanc at slower rate with no issue. Wound cx with GNR and GPC. PCR shows mssa. Cont vanc and jonel for now. yersinia - usually self limited illness, diarrhea resolved, should be covered by current abx. Will follow
--- NOTE | 2019-06-14 11:42 | CASEMGMT ---
KELSIE IRELAND assessement: Face to Face with patient for initial transition planning/care coordination assessment. RN CM introduced self and role at [facility], pt voices understanding and consents to assessment at this time. Pt is lying in bed at this time and falls to sleep when not stimulated verballly. Pt is A/Ox4 at this time and answers all questions appropriately at this time. Care providers, pharmacy, and demographics verified/updated at this time. Pt returns to [facility] for continued foot infection and is scheduled for surgical I&D 06/14/19 at 1500. PCP: Jeaneth Specialists: Pt states has no current specialists. Preferred Pharmacy: [facility] Insurance: MCR A/B, DANIEL Prescription Benefit: DANIEL Living Will/HPOA: Pt states does not have LW/HPOA and declines info at this time. Pt only has daughter, Trisha Hernandez, listed as contact. This RN CM asked pt if she would like her daughter, Trisha, to make decisions for her if necessary and pt adamantly answers, 'No.' When asked who pt would like to make decisions for her, pt states 'I will make my decisions.' This RN CM advised her that the HPOA would be appointed to make decisions for her if she was unable to make the decision. Pt states, 'I have no idea who I would want to do that.' This RN CM did advised pt that at this time, her daughter would be the decision maker as she is the only service advocate contact listed, pt voices understanding and still declines to complete paperwork at this time. LNOK: Trisha Hernandez, daughter Living Arrangements: Pt states lives alone in a 1 story home with 3 step entry and states no concerns at home at this time. Pt states has been independent with ADL's. Transportation: Pt states family drives and states no transportation concerns at this time. DME/HHC: Pt states has the following DME: crutches, w/c, and grab bars. Pt states no need for any further DME at this time. Pt states does have HHC currently but cannot remember name and states 'You set it up here.' Pt had been in TCU thru 05/22/19 and per [facility] SW, pt was set up with [facility] and she states Freddy was the contact at [phone]. Call to Freddy and he states pt was active for snf only for wound care. He states that pt had been 'declining and non-compliant' but states they would be willing to resume care if pt does decide to go home. Pt states has been to TCU, W, and [place] in the past. Pt does state concerns with going home at time of discharge at this time. Pt states that she would like to 'go to TCU but not to those other places.' Colby BOYKIN aware at this time, voices understanding. Per Colby BOYKIN, pt has used her 1st 20 MCR days and is now in the co-pay days which will be picked up by her DANIEL. Pt states does not smoke or drink ETOH. Pt states is disabled. Pt states no further concerns/needs at this time. CM to follow PT/OT evals and for any further discharge planning/needs. Advised pt to ask for CM if any further questions/concerns/needs arise, voices understanding. Pt Goal: TCU Plan: SNF that will take her DANIEL for co-pay days, pending PT/OT evals. Mary Ann IGLESIAS CM
[2019-06-14 12:21] LABS: Bedside Glucose 115 mg/dL (70-110)
--- NOTE | 2019-06-14 13:19 | PN_ITS ---
Patient Problems: Active and Suspected Problems (This Medical Record has been edited. Action required.) Diabetic foot infection (Acute) Enteritis, Yersinia enterocolitica (Acute) - Physical Exam Vital Signs Temp Pulse Resp BP Pulse Ox 97.9 F 81 14 162/67 H 98 06/14/19 08:23 06/14/19 08:35 06/14/19 08:23 06/14/19 09:37 06/14/19 08:23 Oxygen Delivery Method Room Air Weight: 91.1 kg Body Mass Index (BMI) 32.4 Finger Stick Blood Glucose 182 Intake and Output for Last 24 Hours 06/12/19 06/13/19 06/14/19 23:59 23:59 23:59 Intake Total 4404.17 / 4404.17 394.50 / 394.50 Output Total 400 / 400 Balance 4004.17 / 4004.17 394.50 / 394.50 Microbiology Past 72 Hours 06/13/19 11:50 Gram Stain - Final Wound - Left Foot Wound Culture - Preliminary GNR lactose chief clinical dietitian Mixed Gram Positive Organisms 06/13/19 01:20 Gram Stain - Final Wound - Left Foot Wound Culture - Preliminary GNR lactose chief clinical dietitian Gram positive organism Laboratory Tests Past 24 Hrs 06/13/19 11:50 S.aureus Protein A PCR POSITIVE H MRSA (PCR) Negative POC Glucose 06/14/19 06/14/19 06/14/19 12:13 08:28 02:27 POC Glucose 115 H 217 H 144 H 06/13/19 06/13/19 20:54 16:45 POC Glucose 218 H 190 H Medical Necessity - Tobacco Use Smoking Status: Never smoker Assessment/Plan All Active Problems (This Medical Record has been edited. Action required.) Diarrhea (Acute) Hyperglycemia (Acute) Diabetic foot infection (Acute) Enteritis, Yersinia enterocolitica (Acute) History of coronary artery stent placement (Resolved 09/21/18) NSTEMI (non-ST elevated myocardial infarction) (Resolved 09/2018) Chest pain (Resolved) Intractable nausea and vomiting (Resolved) Malnutrition (Resolved) Necrotizing soft tissue infection (Resolved) Severe sepsis (Resolved)
--- NOTE | 2019-06-14 13:49 | PN_ITS ---
Patient Problems: Active and Suspected Problems (This Medical Record has been edited. Action required.) Diabetic foot infection (Acute) Enteritis, Yersinia enterocolitica (Acute) Subjective: Pain controlled. Agreeable to surgery. No fever/chills. No cough/SOB. No diarrhea. - Physical Exam General: Alert, Oriented x3, Cooperative HEENT: Atraumatic, PERRLA, EOMI, Normocephalic Neck: Supple, No JVD, Negative Carotid Bruits Lungs: Clear to auscultation, Normal air movement Cardiovascular: Regular rate, No murmurs Abdomen: Bowel Sounds Present, Soft, Non Tender Extremities: No edema, Capillary Refill Less than 3 Seconds Skin: No rashes, No breakdown Musculoskeletal: No Tenderness to Palpation of Joints or Extremities Neurological: Cranial nerves II-XII grossly intact Psych/Mental Status: Flat Affect, Alert and oriented to time, place, person, mood and affect Vital Signs Temp Pulse Resp BP Pulse Ox 97.9 F 81 14 162/67 H 98 06/14/19 08:23 06/14/19 08:35 06/14/19 08:23 06/14/19 09:37 06/14/19 08:23 Oxygen Delivery Method Room Air Weight: 200 lb 13.458 oz Body Mass Index (BMI) 32.4 Finger Stick Blood Glucose 182 Intake and Output for Last 24 Hours 06/12/19 06/13/19 06/14/19 23:59 23:59 23:59 Intake Total 4404.17 / 4404.17 394.50 / 394.50 Output Total 400 / 400 Balance 4004.17 / 4004.17 394.50 / 394.50 Microbiology Past 72 Hours 06/13/19 11:50 Gram Stain - Final Wound - Left Foot Wound Culture - Preliminary GNR lactose computer engineering professor Mixed Gram Positive Organisms 06/13/19 01:20 Gram Stain - Final Wound - Left Foot Wound Culture - Preliminary GNR lactose computer engineering professor Gram positive organism POC Glucose 06/14/19 06/14/19 06/14/19 12:13 08:28 02:27 POC Glucose 115 H 217 H 144 H 06/13/19 06/13/19 20:54 16:45 POC Glucose 218 H 190 H Medical Necessity - Tobacco Use Smoking Status: Never smoker Assessment/Plan All Active Problems (This Medical Record has been edited. Action required.) Diarrhea (Acute) Hyperglycemia (Acute) Diabetic foot infection (Acute) Enteritis, Yersinia enterocolitica (Acute) History of coronary artery stent placement (Resolved 09/21/18) NSTEMI (non-ST elevated myocardial infarction) (Resolved 09/2018) Chest pain (Resolved) Intractable nausea and vomiting (Resolved) Malnutrition (Resolved) Necrotizing soft tissue infection (Resolved) Severe sepsis (Resolved) 1. Left foot diabetic wound, osteomyelitis - Vanc/Merrem. Wound care. Podiatry following. To OR today. Blood cx pending. Wound culture with GNR lactose computer engineering professor and mixed GPCs. ID to see. No fever/leukocytosis. 2. DMt2 with peripheral neuropathy - uncontrolled - titrate insulin to response, defer today given surgery this afternoon. Wafer Production Worker eval. 3. RLS - mirapex 4. CAD - brando/bb/plavix 5. CKDIII - stable. check in AM. 6. HTN - trend. Somewhat elevated. 7. Depression - paxil, ambien, melatonin. 8. Recently with Yersinia gastroenteritis. Currently no GI complaints. C diff neg 06/06. Was on cipro as o/p. DVT ppx: heparin DC planning: reportedly non compliant with home health services. Likely needs SNF placement. This patient was seen by Donovan Samuels PA-C under the supervision of Dr. Perez.
--- NOTE | 2019-06-14 14:32 | EKG12_ITS ---
Test Reason : CP Blood Pressure : / mmHG Vent. Rate : 077 BPM Atrial Rate : 077 BPM P-R Int : 160 ms QRS Dur : 082 ms QT Int : 394 ms P-R-T Axes : 044 035 038 degrees QTc Int : 445 ms Normal sinus rhythm Normal ECG When compared with ECG of 14-JUN-2019 15:35, MANUAL COMPARISON REQUIRED, DATA IS UNCONFIRMED Confirmed by SHIRA HA ([id number]), editor farm journal KAROLINA DE LA O ([id number]) on 06/18/2019 3:09:34 PM Referred By: LIONEL Confirmed By:SHIRA HA
[2019-06-14 14:56] LABS: Absolute Lymphocyte Count 1.27 X10^3/uL (0.83-4.51); Absolute Neutrophil Count 6.9 X10^3/uL (2.0-7.7); Basophil# 0.05 X10^3/uL; Basophil% 0.6 % (0-1); Eosinophil# 0.21 X10^3/uL; Eosinophils% 2.3 % (0-5); Hematocrit 30.4 % (37-47); Hemoglobin 9.6 g/dL (12.0-15.0); Lymphocyte # 1.27 X10^3/ul (4.0); Lymphocyte % 14.1 % (19-41); Mean Corp Hgb Conc 31.6 g/dL (32-36); Mean Corpuscular Hgb 27.9 pg (27.0-32.0); Mean Corpuscular Volume 88.4 fL (81-99); Mean Platelet Vol. 9.9 fl (6.2-12.0); Monocyte# 0.54 X10^3/uL; NRBC Flagged by Analyzer 0 % (0-5); Neutrophil # 6.86 X10^3/uL (2.7-7.7); Neutrophil % 76.4 % (47-70); Platelet Count 370 K/mm3 (150-450); RBC Distribution Width CV 14.5 % (11.6-14.6); RBC Distribution Width SD 46.5 fl (35.1-43.9); Red Blood Count 3.44 M/mm3 (4.2-5.4)
[2019-06-14 15:19] LABS: Anion Gap 7 (5-15); BUN 17 mg/dL (7-18); BUN/Creat Ratio 20.7 RATIO (10-20); Calcium,Total 9.2 mg/dL (8.5-10.1); Chloride 107 mmol/L (98-107); Creatinine, Serum 0.82 mg/dL (0.55-1.02); EST Glomerular Filtration Rate 77 mL/min (>60); Est Glom Filt Rate - Afr Amer 93 mL/min (>60); Estimated Creatinine Clearance 74.28 ml/min; Glucose 111 mg/dL (74-106); Potassium 4.7 mmol/L (3.5-5.1); Sodium Level 141 mmol/L (136-145)
--- NOTE | 2019-06-14 15:21 | NURSING ---
RN called form AC at this time for report on patient. Report given.
[2019-06-14 16:00] LABS: Bedside Glucose 141 mg/dL (70-110)
[2019-06-14] MEDS: Lactated Ringers 1,000 ML 100 ML IV (16:00)
[2019-06-14] MEDS: Bupivacaine Mpf 0.5% 30 ML VIAL (16:10)
--- NOTE | 2019-06-14 16:10 | RAD_ITS ---
HISTORY:BONE BX, 4TH AND 5TH MT BONE BX, 4TH AND 5TH MT COMPARISON: None FINDINGS: # of images incl. paperwork: 5 XR Foot 2 Views: Left Multiple intraoperative images demonstrate localization of the fourth metatarsal diametaphysis and the fifth metatarsal remnant RAD/Foot 2 Views IMPRESSION: Intraoperative localization of the fourth proximal metatarsal diametaphysis of the fifth metatarsal remnant at 1923 Reported and signed by: Milli Wyatt DO Electronically Signed: Milli Wyatt DO at 19:22 EDT Tel , Service support ,
--- NOTE | 2019-06-14 16:25 | BON_PTH ---
PATIENT: DIONY ROCHA LOC: [facility] U#:[id number] AGE/SX: 53/F ROOM: [facility] RE06/13/[address]: Dr. Raúl Perez DO : 1965 BED: 1 DIS: 06/16/2019 SPEC #: [id number] RECD: 06/15/19 07:15 STATUS: LON REQ #: [id number] ANEL: 06/14/19 16:[address]: Kayden Segovia DEPT: SURGICAL PATHOLOGY RECD BY: Malik Taylor ENTERED: 06/15/19 08:42 SP TYPE: Bone OTHR DR: MD Dr. Jefe Stevens, DPM MD Dr. Raúl Sainz DO Dr. Robert Leininger, MD Tissues: A - Bone of foot, NOS B - Bone of foot, NOS Procedures: Decalcification bone/plaque Surgery Specimen Level IV Comments: @ Ordering doctor for DEC edited from to @ eden HARRIS at 06/15/19 1209 @ Ordering doctor for SUIII edited from to @ by STEVEN at 06/15/19 1209 @ Submitting doctor edited from to @ by STEVEN at 06/15/19 1209 HEADER OPERATION: Incision and drainage left foot with bone biopsy PRE-OP DIAGNOSIS: Left foot diabetic ulcers TISSUE SUBMITTED: A - Left fourth metatarsal bone, B - Left fifth metatarsal bone MICROSCOPIC DIAGNOSIS A. Left fourth metatarsal bone, biopsy: A piece of bone, negative for acute osteomyelitis. B. Left fifth metatarsal bone, biopsy: A piece of bone with acute and chronic osteomyelitis and reactive changes. MARY ANN:aristides 06/18/19 MICROSCOPIC DESCRIPTION Slides are reviewed. GROSS DESCRIPTION A - Received in fixative is one container labeled with the patient's name and designated left fourth metatarsal bone. The specimen consists of small piece of bone measuring 0.2 x 0.1 x 0.1 cm. The specimen is totally submitted in one cassette after short decalcification. B - Received in fixative is one container labeled with the patient's name and designated left fifth metatarsal bone. The specimen consists of a piece of mahajan bone measuring 0.3 x 0.1 x 0.1 cm. The specimen is totally submitted in one cassette after short decalcification. / MARY ANN:aristides 06/15/19 TC:2 CPT: 69389 x2, 10711 x2
--- NOTE | 2019-06-14 17:50 | PCM.OPRPT ---
Problem List (1) Chronic ulcer of left foot with fat layer exposed Status: Chronic (2) Osteomyelitis of left foot Status: Acute (3) Type 2 diabetes mellitus with diabetic polyneuropathy Status: Acute (4) Abscess of left foot Status: Acute (5) Cellulitis of left foot Status: Acute (6) Non-compliance Status: Acute Report of Operation Date of Procedure: 06/14/19 Pre-Operative Diagnosis: Ulcer of left foot with suspected abscess and suspected osteomyelitis Post-Operative Diagnosis: Same Surgery/Procedure Performed:: Incision and drainage of left foot with debridement of any nonviable soft tissue with bone biopsy of the left fourth and fifth metatarsal bases Description of Surgical Findings:: Indications: This patient is a 53-year-old diabetic female with multiple medical problems that include, but are not limited to diabetes, continued nonadherence, chronic ulceration and history of previous left foot surgeries. This patient was admitted to the hospital yesterday for recurrent left foot infection. She had recently completed a course of antibiotics for osteomyelitis of the left foot. She relates that she has recently been walking on her foot. When I discussed with her the importance of staying nonweightbearing and that she is been told she should not have pressure to this foot in the past, her response was, I only walked on it a lot a few days. She went to the [facility] that prescribed her antibiotics originally, and she says she did not end up taking them. She said the redness to her left foot continued to worsen and she decided to come to [place] emergency room. Patient has an ulcer to the plantar left lateral foot that measured approximately 2.0 x 2.8 x 0.2 cm with the majority of granular tissue. Patient also has an ulcer to the lateral aspect of her left foot that does probe deep to bone. There is noted to be devitalized subcutaneous tissue, adherent slough, fibrin, biofilm in this area. There is also some minor cellulitis directly surrounding the ulcer site to the lateral foot. The cellulitis has improved a good deal since patient's admission yesterday and starting IV antibiotics. Patient had an MRI that showed possible abscess of the left foot as well as possible osteomyelitis of the base of the left fifth and fourth metatarsals. I discussed earlier this afternoon all of the patient's options as well as risks and potential benefits of all of these. After discussion, she elects to undergo a procedure for incision and drainage of the left foot with debridement of any nonviable soft tissue as well as a bone biopsy of the base of the left fourth and fifth metatarsals. I again reviewed the possible benefits vs risks, goals, expectations and estimated healing time. The patient understands she is at risk for further infection, amputation, loss of limb, and loss of life, as well as persistent or even worsening infection, or even limb loss. I also advised patient risks include but are not limited to need for further surgery, blood clots, weakness, transfer lesions, ischemia, bleeding, pain, chronic pain, deformity, numbness, swelling, inability to walk or wear shoes, charcot foot, complex regional pain syndrome, loss of limb, and even potential loss of life. Patient expressed understanding and agrees to proceed with planned procedure. All of her questions were answered. The consent form was reviewed with patient, and the patient freely signed it. No guarantees were given nor implied. Patient understands she is at very high risk of limb loss due to her uncontrolled diabetes and nonadherence. Procedure: The patient was brought back to the operating room and was placed on the operating room table in the supine position. The patient was carefully secured to the operating room table with a safety belt around her waist. The patient was already on IV antibiotics per Infectious Disease service. A time out was performed and the patient was properly identified and the surgical plan was confirmed. The patient received anesthesia per the anesthesia team. A well padded pneumatic tourniquet was applied to the left ankle. The left foot was scrubbed, prepped and draped in the usual aseptic fashion and the tourniquet was inflated to 250 mmHg. Next attention was directed to the dorsal left foot. Using a Wakefield elevator and fluoroscopy a site overlying the fourth metatarsal base was identified. Next using a #15 scalpel blade a small stab incision was made. This incision was carefully deepened using blunt dissection with a hemostat down to the base of the fourth metatarsal. Next, a Jamshidi needle was used and position was again confirmed using fluoroscopy. A bone biopsy was then taken from this site and sent to pathology and microbiology for further evaluation. Next the exact same procedure was performed in the exact same way overlying the base of the residual fifth metatarsal. The bone biopsy from this site was also sent to pathology and microbiology for further evaluation. The sites were then carefully flushed out with copious amounts of normal sterile saline and the skin was reapproximated using 4-0 nylon. Next, a #15 blade was utilized to make an approximately 4 cm incision directly through the lateral left foot ulcer site. The incision was carefully deepened using a combination of sharp and blunt dissection making sure to avoid any vital neurovascular structures. Only very scant amount of serosanguineous drainage was appreciated. Using a Wakefield elevator, any tracks over to the fifth metatarsal base as well as the fourth metatarsal were explored. The foot was milked and no further signs of any purulence were able to to be encountered. Any devitalized appearing soft tissue including fibrotic tissue, slough, biofilm was carefully debrided sharply using a #15 blade. Once complete, the remaining soft tissue appeared healthy in appearance. Pre-debridement the lateral ulcer measured approximately 0.7 x 1.0 cm and probes deep to bone. Post debridement the ulcer measured approximately 0.8 x 4.0 cm long if you include the incision through the ulcer site and still probed deep to bone. Once this was complete, top gloves were taken off and the site was flushed with copious amounts of normal sterile saline. Again no further purulence was appreciated and the remaining soft tissue appeared healthy in appearance. The pneumatic left ankle tourniquet was then deflated and there is prompt hyperemic response to all remaining toes of the left foot. The lateral foot surgical site was then packed with iodoform packing, followed by 4 x 4's, ABDs, Kerlix, and [place] bandage. The patient tolerated the above procedure and anesthesia well with no complications. Patient was transported to the recovery room with vital signs stable and in good condition. Post operative orders were placed. No weightbearing left foot, keep left foot elevated. Post-op instructions were reviewed. Patient will continue to be followed closely while in house. Specimen's removed: 1. Bone biopsy of the left fourth metatarsal base sent to microbiology and pathology. 2. Bone biopsy of the residual fifth metatarsal base sent to microbiology and pathology Estimated Blood Loss (mL): 5mL
[2019-06-14] MEDS: Paroxetine 20 MG Tablet PO (22:49)
[2019-06-14 23:11] LABS: Bedside Glucose 298 mg/dL (70-110)
[2019-06-15] VITALS (9 sets, daily range): BP systolic 128–152; BP diastolic 54–78; PULSE 74–82; RESP 16–20; TEMP 36.4–37.1; O2SAT 95–100
[2019-06-15] MEDS: Lactated Ringers 1,000 ML 100 ML IV (02:02)
[2019-06-15] MEDS: Morphine 2 MG/ML Syringe IV (02:06)
[2019-06-15] MEDS: 0.9% NaCl Peripheral Flush Adult/Peds IV (02:07)
[2019-06-15] MEDS: DiphenhydrAMINE 25 MG Capsule PO (02:50)
[2019-06-15] MEDS: Insulin Lispro 100 UNIT/ML INSULN.PEN SC ×5 (02:50→22:57)
[2019-06-15 03:06] LABS: Bedside Glucose 201 mg/dL (70-110)
[2019-06-15 03:15] LABS: Absolute Lymphocyte Count 1.52 X10^3/uL (0.83-4.51); Absolute Neutrophil Count 6.1 X10^3/uL (2.0-7.7); Basophil# 0.04 X10^3/uL; Basophil% 0.5 % (0-1); Eosinophil# 0.17 X10^3/uL; Hematocrit 27.6 % (37-47); Hemoglobin 8.7 g/dL (12.0-15.0); Lymphocyte # 1.52 X10^3/ul (4.0); Lymphocyte % 18.1 % (19-41); Mean Corp Hgb Conc 31.5 g/dL (32-36); Mean Corpuscular Hgb 27.4 pg (27.0-32.0); Mean Corpuscular Volume 86.8 fL (81-99); Mean Platelet Vol. 10.2 fl (6.2-12.0); Monocyte# 0.52 X10^3/uL; Monocyte% 6.2 % (0-10); NRBC Flagged by Analyzer 0 % (0-5); Neutrophil # 6.09 X10^3/uL (2.7-7.7); Neutrophil % 72.7 % (47-70); Platelet Count 344 K/mm3 (150-450); RBC Distribution Width CV 14.6 % (11.6-14.6); RBC Distribution Width SD 45.8 fl (35.1-43.9); Red Blood Count 3.18 M/mm3 (4.2-5.4); White Blood Count 8.4 K/mm3 (4.4-11.0)
[2019-06-15] MEDS: Vancomycin IV 1,000 MG/200 ML BAG 100 MG IV (03:21)
[2019-06-15 03:38] LABS: Vancomycin, Trough Level 14.1 ug/mL (5.0-15.0)
[2019-06-15 04:07] LABS: Anion Gap 9 (5-15); BUN 16 mg/dL (7-18); BUN/Creat Ratio 19.4 RATIO (10-20); Calcium,Total 8.5 mg/dL (8.5-10.1); Chloride 107 mmol/L (98-107); Creatinine, Serum 0.82 mg/dL (0.55-1.02); EST Glomerular Filtration Rate 77 mL/min (>60); Est Glom Filt Rate - Afr Amer 93 mL/min (>60); Estimated Creatinine Clearance 74.28 ml/min; Glucose 197 mg/dL (74-106); Potassium 4.2 mmol/L (3.5-5.1); Sodium Level 142 mmol/L (136-145)
--- NOTE | 2019-06-15 05:53 | PHA.PHARE_ITS ---
Consult Pharmacy has been consulted to manage selected antiobiotic: Vancomycin Type of Consult: Follow-up Suspected Infection: Skin/Soft tissue Prior Doses of Antibiotics Received/Current Regimen: Medications Vancomycin HCl (Vancomycin) 1,000 mg in 200 mls @ 100 mls/hr IV Q12H TAB Last Admin: 06/15/19 03:21 Dose: Infused Labs: Sodium 142 mmol/L (136-145) 06/15/19 02:45 Potassium 4.2 mmol/L (3.5-5.1) 06/15/19 02:45 Chloride 107 mmol/L (98-107) 06/15/19 02:45 Carbon Dioxide 26.0 mmol/L (21.0-32.0) 06/15/19 02:45 Anion Gap 9 (5-15) 06/15/19 02:45 BUN 16 mg/dL (7-18) 06/15/19 02:45 Creatinine 0.82 mg/dL (0.55-1.02) 06/15/19 02:45 Est GFR (MDRD) Af Amer 93 mL/min (>60) 06/15/19 02:45 Est GFR (MDRD) Non-Af 77 mL/min (>60) 06/15/19 02:45 BUN/Creatinine Ratio 19.4 RATIO (10-20) 06/15/19 02:45 Glucose 197 mg/dL (74-106) H 06/15/19 02:45 Vancomycin Trough 14.1 ug/mL (5.0-15.0) 06/15/19 02:45 Microbiology: Microbiology 06/13/19 11:50 Wound - Left Foot Gram Stain - Final 06/13/19 11:50 Wound - Left Foot Wound Culture - Preliminary GNR lactose community development officer Mixed Gram Positive Organisms 06/13/19 01:20 Wound - Left Foot Gram Stain - Final 06/13/19 01:20 Wound - Left Foot Wound Culture - Preliminary GNR lactose community development officer Gram positive organism Weight used for dosin.1 kg Estimated Creatinine Clearance: 74 Goal Trough: 15-20 mcg/mL Pharmacy Plan for Drug Dosing: Vancomycin trough level of 14.1 was just below the target range of 15-20. Will continue same dosing and re-draw trough level in 4 doses. Pharmacy Service will continue to monitor and adjust dosing as required. Follow-Up Labs: Trough Vancomycin Labs to be done on [date and time ordered]: 06/16/19 @9952
[2019-06-15] MEDS: oxyCODONE 5 MG Tablet PO ×2 (07:46→19:15)
--- NOTE | 2019-06-15 07:48 | EKG12_ITS ---
Test Reason : PRE OP Blood Pressure : / mmHG Vent. Rate : 077 BPM Atrial Rate : 077 BPM P-R Int : 160 ms QRS Dur : 088 ms QT Int : 402 ms P-R-T Axes : 035 020 031 degrees QTc Int : 454 ms Normal sinus rhythm Normal ECG When compared with ECG of 06-JUN-2019 21:48, No significant change was found Confirmed by SHIRA HA ([id number]), copy editor KAROLINA DE LA O ([id number]) on 06/18/2019 3:08:33 PM Referred By: Confirmed By:SHIRA HA
[2019-06-15] MEDS: Insulin Lispro 100 UNIT/ML INSULN.PEN 10 UNIT SC ×3 (07:54→16:53)
[2019-06-15] MEDS: Iron Polysaccharide Complex 150 MG CAPSULE PO (07:54)
[2019-06-15] MEDS: Clopidogrel Bisulfate 75 MG Tablet PO (07:55)
[2019-06-15] MEDS: Metoprolol Tartrate 25 MG Tablet 12.5 MG PO ×2 (07:55→22:56)
[2019-06-15] MEDS: Lisinopril 5 MG Tablet PO (07:55)
[2019-06-15] MEDS: Pramipexole Di-HCl 1 MG Tablet 1.5 MG PO ×2 (07:55→23:27)
[2019-06-15] MEDS: Multivitamins,Therapeutic Tablet 1 TABLET PO (07:56)
[2019-06-15] MEDS: Glucerna Shake 120 ML LIQUID PO ×2 (07:56→14:13)
[2019-06-15] MEDS: Gabapentin 300 MG Capsule 900 MG PO ×3 (07:56→16:29)
[2019-06-15 08:36] LABS: Bedside Glucose 194 mg/dL (70-110)
--- NOTE | 2019-06-15 09:34 | NURSING ---
Pt is post op day #1 surgical debridement of the left foot. there is currently no breakthrough drainage noted. will leave intact until podiatry comes to assess. pt denies needs at this time.
--- NOTE | 2019-06-15 10:15 | CASEMGMT ---
SW met with patient, introduced self and role at [facility]. Patient was wanting to go to TCU. SW told patient she will not be able to go to TCU as she is in her co-pay days which Medicaid will be paying and TCU does not take Medicaid. SW gave her a list of local SNF's to choose from. She asked if she has to go to a SNF. SW told her that the physicians would really like for her to go to a SNF to heal. SW told her she should talk with the physicians about this. Kamilla MCCORD MSW
[2019-06-15 11:06] LABS: Bedside Glucose 173 mg/dL (70-110)
--- NOTE | 2019-06-15 11:33 | CASEMGMT ---
Physician spoke with patient and she agreed to [facility] or [facility]. SW called [facility] and also faxed referral. SW wrote down the known dates that patient was in SNF's this year as SNF will want to know. Awaiting call back from [facility] to see when patient left them in November. Await response from [facility]. Kamilla MCCORD MSW
--- NOTE | 2019-06-15 11:59 | PCM.PROGNOTE ---
Patient Problems: Active and Suspected Problems (This Medical Record has been edited. Action required.) Diabetic foot infection (Acute) Enteritis, Yersinia enterocolitica (Acute) Osteomyelitis of left foot (Acute) Type 2 diabetes mellitus with diabetic polyneuropathy (Acute) Abscess of left foot (Acute) Cellulitis of left foot (Acute) Non-compliance (Acute) Subjective: Patient was seen today post op day #1 s/p incision and drainage of left foot with debridement of soft tissue and bone biopsy of left 4th and 5th metatarsals. Patient currently resting comfortably in bed. She says her pain is controlled and that she feels well today. She had no acute events over night. She currently denies any feelings of nausea, vomiting, fever, or chills. - Physical Exam General: Alert, Oriented x3, Cooperative, No apparent distress Extremities: No cyanosis, Capillary Refill Less than 3 Seconds, No Calf Tenderness - Negative Jaswinder and Nuñez sign bilateral, Diminished Peripheral Pulses, Edema - Mild lower extremity edema Skin: Ulcer/ Wound - 2 stable ulcer sites appreciated to the right lateral ankle and the left plantar foot. His ulcers are down to the fat layer. These appear stable. There is no surrounding or extending cellulitis in these areas, there is no purulence, there is no malodor, there is no probing to bone, no tracking, no undermining., - - Surgical site to left lateral foot remains open. Bone can be probed to the site. Area appears to be doing well, with no extending cellulitis in this area and only very minor erythema directly surrounding the surgical site which is much improved from yesterday. There is no purulence or malodor in this area. No visible necrotic tissue appreciated. The 2 stab incisions to the dorsal left foot at the bone biopsy sites are well coapted and the sutures are still intact. Musculoskeletal: No Tenderness to Palpation of Joints or Extremities, - - Previous partial left fifth ray amputation Neurological: - - Epicritic sensation grossly absent to bilateral lower extremities consistent with patient's diabetic status Psych/Mental Status: Normal Affect, Appropriate Vital Signs Temp Pulse Resp BP Pulse Ox 98.0 F 82 20 H 152/78 H 100 06/15/19 07:50 06/15/19 07:55 06/15/19 07:50 06/15/19 07:50 06/15/19 07:50 Oxygen Delivery Method Room Air Weight: 91.1 kg Body Mass Index (BMI) 32.4 Finger Stick Blood Glucose 182 Intake and Output for Last 24 Hours 06/13/19 06/14/19 06/15/19 23:59 23:59 23:59 Intake Total 4404.17 / 4404.17 1772.83 / 1772.83 632.17 / 632.17 Output Total 400 / 400 Balance 4004.17 / 4004.17 1772.83 / 1772.83 632.17 / 632.17 Microbiology Past 72 Hours 06/14/19 17:34 Gram Stain - Final Biopsy - Bone 06/14/19 17:34 Gram Stain - Final Biopsy - Bone 06/13/19 11:50 Gram Stain - Final Wound - Left Foot Wound Culture - Preliminary Enterobacter cloacae complex Mixed Gram Positive Organisms 06/13/19 01:20 Gram Stain - Final Wound - Left Foot Wound Culture - Preliminary Enterobacter cloacae complex Staphylococcus aureus Laboratory Tests Past 24 Hrs 06/14/19 06/14/19 06/15/19 14:50 14:50 02:45 WBC 9.0 RBC 3.44 L Hgb 9.6 L Hct 30.4 L MCV 88.4 MCH 27.9 MCHC 31.6 L RDW Std Deviation 46.5 H RDW Coeff of Fior 14.5 Plt Count 370 MPV 9.9 Immature Gran % (Auto) 0.600 Neut % (Auto) 76.4 H Lymph % (Auto) 14.1 L [place] % (Auto) 6.0 Eos % (Auto) 2.3 Baso % (Auto) 0.6 Absolute Neuts (auto) 6.9 Absolute Lymphs (auto) 1.27 Nucleated RBC % 0 Sodium 141 Potassium 4.7 Chloride 107 Carbon Dioxide 27.0 Anion Gap 7 BUN 17 Creatinine 0.82 Estim Creat Clear Calc 74.28 Est GFR (MDRD) Af Amer 93 Est GFR (MDRD) Non-Af 77 BUN/Creatinine Ratio 20.7 H Glucose 111 H Calcium 9.2 Vancomycin Trough 14.1 06/15/19 06/15/19 02:45 02:45 WBC 8.4 RBC 3.18 L Hgb 8.7 L Hct 27.6 L MCV 86.8 MCH 27.4 MCHC 31.5 L RDW Std Deviation 45.8 H RDW Coeff of Fior 14.6 Plt Count 344 MPV 10.2 Immature Gran % (Auto) 0.500 Neut % (Auto) 72.7 H Lymph % (Auto) 18.1 L [place] % (Auto) 6.2 Eos % (Auto) 2.0 Baso % (Auto) 0.5 Absolute Neuts (auto) 6.1 Absolute Lymphs (auto) 1.52 Nucleated RBC % 0 Sodium 142 Potassium 4.2 Chloride 107 Carbon Dioxide 26.0 Anion Gap 9 BUN 16 Creatinine 0.82 Estim Creat Clear Calc 74.28 Est GFR (MDRD) Af Amer 93 Est GFR (MDRD) Non-Af 77 BUN/Creatinine Ratio 19.4 Glucose 197 H Calcium 8.5 Vancomycin Trough POC Glucose 06/15/19 06/15/19 06/15/19 11:01 07:52 02:49 POC Glucose 173 H 194 H 201 H 06/14/19 06/14/19 06/14/19 22:44 15:45 12:13 POC Glucose 298 H 141 H 115 H Medical Necessity - Tobacco Use Smoking Status: Never smoker Assessment/Plan All Active Problems (This Medical Record has been edited. Action required.) Diarrhea (Acute) Hyperglycemia (Acute) Diabetic foot infection (Acute) Enteritis, Yersinia enterocolitica (Acute) Osteomyelitis of left foot (Acute) Type 2 diabetes mellitus with diabetic polyneuropathy (Acute) Abscess of left foot (Acute) Cellulitis of left foot (Acute) Non-compliance (Acute) History of coronary artery stent placement (Resolved 09/21/18) NSTEMI (non-ST elevated myocardial infarction) (Resolved 09/2018) Chest pain (Resolved) Intractable nausea and vomiting (Resolved) Malnutrition (Resolved) Necrotizing soft tissue infection (Resolved) Severe sepsis (Resolved) post op day #1 s/p incision and drainage of left foot with debridement of soft tissue and bone biopsy of left 4th and 5th metatarsals Ulcer to right lateral ankle and left foot DM with neuropathy Other comorbidities This patient was carefully examined and evaluated resting in bed this afternoon post op day #1 s/p incision and drainage of left foot with debridement of soft tissue and bone biopsy of left 4th and 5th metatarsals. Patient did well overnight with no acute events. Patient currently feeling well. WBC 8.4 today. Patient vital signs are currently stable. Patient's blood culture still pending. Left foot deep wound cultures taken on June 13 show Enterobacter cloacae complex and mixed gram-positive organisms. Bone biopsy results taken during surgery are still pending. The surgical site was then carefully irrigated with normal sterile saline. Once complete Aquacel AG was wicked into the surgical site. Aquacel Ag was then placed over the bone biopsy sites, the left plantar ulcer, and the right lateral ankle ulcer. The areas were then dressed with 4 x 4's, ABDs, Kerlix, and [place] bandage. Patient is to continue to ice and elevate the left lower extremity as needed. It was stressed again to the patient the importance of keeping pressure off of her surgical sites and ulcers while in her hospital bed by offloading them with pillows. Patient is to continue to be nonweightbearing to the left lower extremity. Podiatry will continue to follow this patient while in house.
--- NOTE | 2019-06-15 12:49 | CASEMGMT ---
LUCRETIA received a phone call from [facility] and they are not able to accept patient. LUCRETIA faxed referral to [facility] and also called [facility] with referral. She said last time they had concerns with her, but they will review her again. Kamilla MCCORD MSW
--- NOTE | 2019-06-15 13:41 | PN.ID_ITS ---
Patient Problems: Active and Suspected Problems (This Medical Record has been edited. Action required.) Diabetic foot infection (Acute) Enteritis, Yersinia enterocolitica (Acute) Osteomyelitis of left foot (Acute) Type 2 diabetes mellitus with diabetic polyneuropathy (Acute) Abscess of left foot (Acute) Cellulitis of left foot (Acute) Non-compliance (Acute) Subjective: Resting comfortably since OR yesterday, no fever - Physical Exam General: Cooperative, No apparent distress Lungs: Clear to auscultation, Normal air movement Cardiovascular: Regular rate, Regular Rhythm Abdomen: Soft, Non Tender, Non-Distended Skin: Ulcer/ Wound - foot wrapped Vital Signs Temp Pulse Resp BP Pulse Ox 98.7 F 74 20 H 141/73 H 97 06/15/19 12:04 06/15/19 12:04 06/15/19 12:04 06/15/19 12:04 06/15/19 12:04 Oxygen Delivery Method Room Air Weight: 91.1 kg Body Mass Index (BMI) 32.4 Finger Stick Blood Glucose 182 Intake and Output for Last 24 Hours 06/13/19 06/14/19 06/15/19 23:59 23:59 23:59 Intake Total 4404.17 / 4404.17 1772.83 / 1772.83 1868.84 / 1868.84 Output Total 400 / 400 Balance 4004.17 / 4004.17 1772.83 / 1772.83 1868.84 / 1868.84 Microbiology Past 72 Hours 06/13/19 11:50 Gram Stain - Final Wound - Left Foot Wound Culture - Preliminary Enterobacter cloacae complex Gram Positive Cocci Staphylococcus aureus Gram positive elinor 06/14/19 17:34 Gram Stain - Final Biopsy - Bone Wound Culture - Preliminary No growth-Final to follow 06/14/19 17:34 Gram Stain - Final Biopsy - Bone 06/13/19 01:20 Gram Stain - Final Wound - Left Foot Wound Culture - Preliminary Enterobacter cloacae complex Staphylococcus aureus Laboratory Tests Past 24 Hrs 06/14/19 06/14/19 06/15/19 14:50 14:50 02:45 WBC 9.0 RBC 3.44 L Hgb 9.6 L Hct 30.4 L MCV 88.4 MCH 27.9 MCHC 31.6 L RDW Std Deviation 46.5 H RDW Coeff of Fior 14.5 Plt Count 370 MPV 9.9 Immature Gran % (Auto) 0.600 Neut % (Auto) 76.4 H Lymph % (Auto) 14.1 L [place] % (Auto) 6.0 Eos % (Auto) 2.3 Baso % (Auto) 0.6 Absolute Neuts (auto) 6.9 Absolute Lymphs (auto) 1.27 Nucleated RBC % 0 Sodium 141 Potassium 4.7 Chloride 107 Carbon Dioxide 27.0 Anion Gap 7 BUN 17 Creatinine 0.82 Estim Creat Clear Calc 74.28 Est GFR (MDRD) Af Amer 93 Est GFR (MDRD) Non-Af 77 BUN/Creatinine Ratio 20.7 H Glucose 111 H Calcium 9.2 Vancomycin Trough 14.1 06/15/19 06/15/19 02:45 02:45 WBC 8.4 RBC 3.18 L Hgb 8.7 L Hct 27.6 L MCV 86.8 MCH 27.4 MCHC 31.5 L RDW Std Deviation 45.8 H RDW Coeff of Fior 14.6 Plt Count 344 MPV 10.2 Immature Gran % (Auto) 0.500 Neut % (Auto) 72.7 H Lymph % (Auto) 18.1 L [place] % (Auto) 6.2 Eos % (Auto) 2.0 Baso % (Auto) 0.5 Absolute Neuts (auto) 6.1 Absolute Lymphs (auto) 1.52 Nucleated RBC % 0 Sodium 142 Potassium 4.2 Chloride 107 Carbon Dioxide 26.0 Anion Gap 9 BUN 16 Creatinine 0.82 Estim Creat Clear Calc 74.28 Est GFR (MDRD) Af Amer 93 Est GFR (MDRD) Non-Af 77 BUN/Creatinine Ratio 19.4 Glucose 197 H Calcium 8.5 Vancomycin Trough POC Glucose 06/15/19 06/15/19 06/15/19 11:01 07:52 02:49 POC Glucose 173 H 194 H 201 H 06/14/19 06/14/19 22:44 15:45 POC Glucose 298 H 141 H Medical Necessity - Tobacco Use Smoking Status: Never smoker Route of nutrition/ use of supplements: [] Nutritional Intake: [] IV Site: [] Tirado Catheter: [] - Assessment/Plan Antibiotics: [] Assessment/Plan: [] Active and Suspected Problems (This Medical Record has been edited. Action required.) Diabetic foot infection (Acute) Enteritis, Yersinia enterocolitica (Acute) MSSA L foot osteomyelitis with uncontrolled DM, recurrent infections - MRI showed osteo and abscess, surgical I&D done 06/[address] Segovia. Tolerating vanc at slower rate with no issue. Wound cx with mssa and enterobacter. PCR shows mssa. Will narrow abx to cefepime. yersinia - usually self limited illness, diarrhea resolved, should be covered by current abx. Will follow
[2019-06-15] MEDS: Heparin Injection (Vial) 5,000 UNIT/ML VIAL 5000 UNIT SC ×2 (14:14→22:57)
--- NOTE | 2019-06-15 14:15 | CASEMGMT ---
Addendum entered by Kamilla Tinsley 06/15/19 16:33: SW called [facility] to see if they are able to take patient, but they could not find Corinne in admissions. They will have her call SW. SW let patient know this information. Await response from [facility]. Kamilla SALAZAR Addendum entered by Kamilla Tinsley 06/15/19 15:26: SW called Corinne at [facility] and she did not get the referral. SW re-faxed referral. Kamilla SALAZAR Original Note: SW received call from [facility] and they are not able to accept patient. SW spoke with patient and she agreed to a referral to [facility] [place]. Await response. Kamilla SALAZAR
[2019-06-15 16:41] LABS: Bedside Glucose 163 mg/dL (70-110)
--- NOTE | 2019-06-15 17:01 | PCM.PROGNOTE ---
Patient Problems: Active and Suspected Problems (This Medical Record has been edited. Action required.) Diabetic foot infection (Acute) Enteritis, Yersinia enterocolitica (Acute) Osteomyelitis of left foot (Acute) Type 2 diabetes mellitus with diabetic polyneuropathy (Acute) Abscess of left foot (Acute) Cellulitis of left foot (Acute) Non-compliance (Acute) Subjective: Patient was seen and examined today, she has been refused admission by several nursing homes today, at the time of my dictation late this afternoon, [facility] [place] [facility] the patient but not until tomorrow. Patient's blood sugars are under 200. I have briefly discussed her care with infectious diseases. - Physical Exam General: Alert, Oriented x3, Cooperative, No apparent distress, Well developed HEENT: Atraumatic, PERRLA, EOMI, Normocephalic Oral: Moist Mucosa Neck: Supple, No JVD, Trachea Midline, Thyroid Normal Size and Texture Lungs: Clear to auscultation, Normal air movement, No rhonchi, No wheeze, No rales Cardiovascular: Regular rate, Regular Rhythm, Normal S1, Normal S2, No murmurs Abdomen: Bowel Sounds Present, Soft, Non Tender, Non-Distended Neurological: Cranial nerves II-XII grossly intact, Neuro grossly intact, Sensory exam intact to light touch and pain, Coordination normal Psych/Mental Status: Normal Affect, Appropriate, Alert and oriented to time, place, person, mood and affect Vital Signs Temp Pulse Resp BP Pulse Ox 97.5 F L 81 20 H 151/54 H 97 06/15/19 16:31 06/15/19 16:31 06/15/19 16:31 06/15/19 16:31 06/15/19 16:31 Oxygen Delivery Method Room Air Weight: 91.1 kg Body Mass Index (BMI) 32.4 Finger Stick Blood Glucose 182 Intake and Output for Last 24 Hours 06/13/19 06/14/19 06/15/19 23:59 23:59 23:59 Intake Total 4404.17 / 4404.17 177.83 / 177.83 Output Total 400 / 400 Balance 4004.17 / 4004.17 1772.83 / 1772.83 Microbiology Past 72 Hours 06/12/19 23:40 Blood Culture - Preliminary Blood Culture (Wb) - Anticubital Right No growth in 48 hours. 06/12/19 23:40 Blood Culture - Preliminary Blood Culture (Wb) - Anticubital Left No growth in 48 hours. 06/13/19 11:50 Gram Stain - Final Wound - Left Foot Wound Culture - Preliminary Enterobacter cloacae complex Gram Positive Cocci Staphylococcus aureus Gram positive elinor 06/14/19 17:34 Gram Stain - Final Biopsy - Bone Wound Culture - Preliminary No growth-Final to follow 06/14/19 17:34 Gram Stain - Final Biopsy - Bone 06/13/19 01:20 Gram Stain - Final Wound - Left Foot Wound Culture - Preliminary Enterobacter cloacae complex Staphylococcus aureus Laboratory Tests Past 24 Hrs 06/15/19 06/15/19 06/15/19 02:45 02:45 02:45 WBC 8.4 RBC 3.18 L Hgb 8.7 L Hct 27.6 L MCV 86.8 MCH 27.4 MCHC 31.5 L RDW Std Deviation 45.8 H RDW Coeff of Fior 14.6 Plt Count 344 MPV 10.2 Immature Gran % (Auto) 0.500 Neut % (Auto) 72.7 H Lymph % (Auto) 18.1 L [place] % (Auto) 6.2 Eos % (Auto) 2.0 Baso % (Auto) 0.5 Absolute Neuts (auto) 6.1 Absolute Lymphs (auto) 1.52 Nucleated RBC % 0 Sodium 142 Potassium 4.2 Chloride 107 Carbon Dioxide 26.0 Anion Gap 9 BUN 16 Creatinine 0.82 Estim Creat Clear Calc 74.28 Est GFR (MDRD) Af Amer 93 Est GFR (MDRD) Non-Af 77 BUN/Creatinine Ratio 19.4 Glucose 197 H Calcium 8.5 Vancomycin Trough 14.1 POC Glucose 06/15/19 06/15/19 06/15/19 16:29 11:01 07:52 POC Glucose 163 H 173 H 194 H 06/15/19 06/14/19 02:49 22:44 POC Glucose 201 H 298 H Medical Necessity - Tobacco Use Smoking Status: Never smoker Assessment/Plan All Active Problems (This Medical Record has been edited. Action required.) Diarrhea (Acute) Hyperglycemia (Acute) Diabetic foot infection (Acute) Enteritis, Yersinia enterocolitica (Acute) Osteomyelitis of left foot (Acute) Type 2 diabetes mellitus with diabetic polyneuropathy (Acute) Abscess of left foot (Acute) Cellulitis of left foot (Acute) Non-compliance (Acute) History of coronary artery stent placement (Resolved 09/21/18) NSTEMI (non-ST elevated myocardial infarction) (Resolved 09/2018) Chest pain (Resolved) Intractable nausea and vomiting (Resolved) Malnutrition (Resolved) Necrotizing soft tissue infection (Resolved) Severe sepsis (Resolved) #1 neuropathic wound to left foot with osteomyelitis involving the fifth metatarsal remnant and the base of the fourth metatarsal-postop day #1 incision and drainage of left foot with debridement of any nonviable tissue with bone biopsy of the left fourth and fifth metatarsal bases-continue present antibiotic coverage with cefepime per ID, I discussed her care with infectious diseases today and infectious diseases recommended treatment for 6 months with IV cefepime at 2 g every 8 hours and also to obtain a CBC and BMP weekly on the patient. #2 uncontrolled type 2 diabetes secondary to patient noncompliance-this makes treatment difficult and recovery difficult #3 coronary artery disease-stable #4 hypertension #5 chronic depression #6 peripheral neuropathy secondary to type 2 diabetes Code Visit Inpatient E&M: 12895 Subs Hosp L2
[2019-06-15] MEDS: Zolpidem Tartrate 5 MG Tablet PO (22:56)
[2019-06-15] MEDS: Paroxetine 20 MG Tablet PO (22:56)
[2019-06-15 23:26] LABS: Bedside Glucose 436 mg/dL (70-110)
[2019-06-16] MEDS: Insulin Lispro 100 UNIT/ML INSULN.PEN SC ×3 (02:07→12:44)
[2019-06-16 02:26] LABS: Bedside Glucose 422 mg/dL (70-110)
[2019-06-16 04:30] VITALS: BP 134/72; PULSE 83; RESP 16; TEMP 36.8; O2SAT 94
[2019-06-16] MEDS: oxyCODONE 5 MG Tablet PO ×2 (04:57→15:43)
[2019-06-16] MEDS: Heparin Injection (Vial) 5,000 UNIT/ML VIAL 5000 UNIT SC (06:07)
[2019-06-16] MEDS: Insulin Lispro 100 UNIT/ML INSULN.PEN 10 UNIT SC ×3 (08:45→17:15)
[2019-06-16] MEDS: Iron Polysaccharide Complex 150 MG CAPSULE PO (08:51)
[2019-06-16] MEDS: Pramipexole Di-HCl 1 MG Tablet 1.5 MG PO (08:51)
[2019-06-16] MEDS: Multivitamins,Therapeutic Tablet 1 TABLET PO (08:52)
[2019-06-16] MEDS: Gabapentin 300 MG Capsule 900 MG PO ×3 (08:52→17:12)
[2019-06-16] MEDS: Lisinopril 5 MG Tablet PO (08:52)
[2019-06-16] MEDS: Clopidogrel Bisulfate 75 MG Tablet PO (08:52)
[2019-06-16 08:53] VITALS: BP 142/81; PULSE 75
[2019-06-16] MEDS: Metoprolol Tartrate 25 MG Tablet 12.5 MG PO (08:53)
[2019-06-16] MEDS: Polyethylene Glycol 3350 17 GM PACKET PO (08:56)
[2019-06-16] MEDS: Glucerna Shake 120 ML LIQUID PO ×2 (08:57→17:12)
[2019-06-16 09:11] VITALS: BP 142/82; PULSE 75; RESP 16; TEMP 37.2; O2SAT 99
[2019-06-16 09:16] LABS: Bedside Glucose 266 mg/dL (70-110)
--- NOTE | 2019-06-16 09:47 | PCM.PROGNOTE ---
Patient Problems: Active and Suspected Problems (This Medical Record has been edited. Action required.) Diabetic foot infection (Acute) Enteritis, Yersinia enterocolitica (Acute) Osteomyelitis of left foot (Acute) Type 2 diabetes mellitus with diabetic polyneuropathy (Acute) Abscess of left foot (Acute) Cellulitis of left foot (Acute) Non-compliance (Acute) Subjective: Patient was seen today post op day #2 s/p incision and drainage of left foot with debridement of soft tissue and bone biopsy of left 4th and 5th metatarsals. Patient currently resting comfortably in bed. She says her pain is controlled and that she feels well again today. She had no acute events over night. She currently denies any feelings of nausea, vomiting, fever, or chills. She has been non compliant in her diet as well and had family bring her in a bunch of snacks last night and her blood sugar was up over 400. - Physical Exam General: Alert, Oriented x3, Cooperative, No apparent distress Extremities: No cyanosis, Capillary Refill Less than 3 Seconds, No Calf Tenderness, Diminished Peripheral Pulses - Negative Jaswinder breath sounds bilateral, Edema - Mild lower extremity edema Skin: Ulcer/ Wound - 2 stable ulcer sites appreciated to the right lateral ankle and the left plantar foot. These ulcers are down to the fat layer. These appear stable. There is no surrounding or extending cellulitis in these areas, there is no purulence, there is no malodor, there is no probing to bone, no tracking, no undermining., - - Surgical site to left lateral foot remains open. Surgical site continues to do well, with no extending cellulitis in this area. Surrounding erythema continues to subside. There is no purulence or malodor in this area. No visible necrotic tissue appreciated. The 2 stab incisions to the dorsal left foot at the bone biopsy sites are well coapted and the sutures are still intact. Musculoskeletal: No Tenderness to Palpation of Joints or Extremities, - - Previous left fifth ray amputation Neurological: - - Epicritic sensation grossly absent to bilateral lower extremities consistent with patient's diabetic status Psych/Mental Status: Normal Affect, Appropriate Vital Signs Temp Pulse Resp BP Pulse Ox 99.0 F 75 16 142/82 H 99 06/16/19 09:11 06/16/19 09:11 06/16/19 09:11 06/16/19 09:11 06/16/19 09:11 Oxygen Delivery Method Room Air Weight: 91.1 kg Body Mass Index (BMI) 32.4 Finger Stick Blood Glucose 182 Intake and Output for Last 24 Hours 06/14/19 06/15/19 06/16/19 23:59 23:59 23:59 Intake Total 1772.83 / 1772.83 2508.84 / 3108.84 886.75 / 886.75 Balance 1772.83 / 1772.83 2508.84 / 3108.84 886.75 / 886.75 Microbiology Past 72 Hours 06/14/19 17:34 Gram Stain - Final Biopsy - Bone Wound Culture - Preliminary No growth-Final to follow 06/13/19 11:50 Gram Stain - Final Wound - Left Foot Wound Culture - Final Enterobacter cloacae complex Enterococcus faecalis Staphylococcus aureus Gram positive elinor 06/13/19 01:20 Gram Stain - Final Wound - Left Foot Wound Culture - Final Enterobacter cloacae complex Staphylococcus aureus 06/12/19 23:40 Blood Culture - Preliminary Blood Culture (Wb) - Anticubital Right No growth in 48 hours. 06/12/19 23:40 Blood Culture - Preliminary Blood Culture (Wb) - Anticubital Left No growth in 48 hours. 06/14/19 17:34 Gram Stain - Final Biopsy - Bone Wound Culture - Preliminary No growth-Final to follow POC Glucose 06/16/19 06/16/19 06/15/19 08:44 02:06 22:47 POC Glucose 266 H 422 H 436 H 06/15/19 06/15/19 16:29 11:01 POC Glucose 163 H 173 H Medical Necessity - Tobacco Use Smoking Status: Never smoker Assessment/Plan All Active Problems (This Medical Record has been edited. Action required.) Diarrhea (Acute) Hyperglycemia (Acute) Diabetic foot infection (Acute) Enteritis, Yersinia enterocolitica (Acute) Osteomyelitis of left foot (Acute) Type 2 diabetes mellitus with diabetic polyneuropathy (Acute) Abscess of left foot (Acute) Cellulitis of left foot (Acute) Non-compliance (Acute) History of coronary artery stent placement (Resolved 09/21/18) NSTEMI (non-ST elevated myocardial infarction) (Resolved 09/2018) Chest pain (Resolved) Intractable nausea and vomiting (Resolved) Malnutrition (Resolved) Necrotizing soft tissue infection (Resolved) Severe sepsis (Resolved) post op day #2 s/p incision and drainage of left foot with debridement of soft tissue and bone biopsy of left 4th and 5th metatarsals Ulcer to right lateral ankle and left foot DM with neuropathy Other comorbidities This patient was carefully examined and evaluated resting in bed this morning post op day #2 s/p incision and drainage of left foot with debridement of soft tissue and bone biopsy of left 4th and 5th metatarsals. Patient did well overnight with no acute events. Patient currently feeling well. Patient's vital signs are currently stable. Patient's blood cultures show no growth after 48 hours. Left foot deep wound cultures taken on June 13 show Enterobacter cloacae complex, enterococcus faecalis, staph aureus, and gram positive elinor. Bone biopsy results taken during surgery are still pending. The surgical site was then carefully irrigated with normal sterile saline. Next, Aquacel AG was wicked into the surgical site. Aquacel Ag was then placed over the bone biopsy sites, the left plantar ulcer, and the right lateral ankle ulcer. The areas were then dressed with 4 x 4's, ABDs, Kerlix, and [place] bandage. Patient is to continue to ice and elevate the left lower extremity as needed. I again discussed with the patient the importance of complying with her treatment plan and that this includes her diet. She had snacks knocking over the evening and her blood sugar was up over 400. It was stressed again to the patient the importance of keeping pressure off of her surgical sites and ulcers while in her hospital bed by offloading them with pillows. Patient is to continue to be nonweightbearing to the left lower extremity. Upon discharge, patient is to follow-up with her already scheduled appointment with Dr. [facility]. Podiatry will continue to follow this patient while in house.
--- NOTE | 2019-06-16 11:29 | PCM.EXTCARCO ---
- Diet 06/14/19 17:33 Diet: Calorie Controlled How many daily calories?: 1800 calorie - Routine Orders/Code Status Suppository Type: Dulcolax 10mg Suppository Frequency: Daily PRN Routine Lab Work: CBC - weekly, BMP - weekly Code Status: Full Code - Wound(s) RT FOOT Wound Type: Neuropathic/Diabetic Foot Ulcer Dressing Change: AntiMicrobial (Aquacel AG, etc) Left Foot Wound Type: Surgical Incision Dressing Change: AntiMicrobial (Aquacel AG, etc) Left Foot Lateral Wound Type: Neuropathic/Diabetic Foot Ulcer Dressing Change: AntiMicrobial (Aquacel AG, etc) - Therapies Weight Bearing: Non weight bearing Physical Therapy: Eval and Treat Occupational Therapy: Eval and Treat - Problem/Diagnosis (1) Diabetic foot infection Status: Acute Current Visit: Yes (2) Osteomyelitis of left foot Status: Acute Current Visit: Yes (3) Enteritis, Yersinia enterocolitica Status: Resolved Current Visit: Yes (4) Type 2 diabetes mellitus with diabetic polyneuropathy Status: Chronic Current Visit: Yes (5) Atherosclerosis of [place] coronary artery of [place] heart without angina pectoris Status: Chronic Comment: PCI-DARA mid LAD w/ 2.25 x 16 mm Promus Synergy, DARA prox LAD w/ 2.5 x 12 mm Promus Synergy 09/21/2018 Current Visit: No (6) Essential (primary) hypertension Status: Chronic Current Visit: No (7) HLD (hyperlipidemia) Status: Chronic Current Visit: No (8) Ischemic cardiomyopathy Status: Chronic Comment: EF 45% Current Visit: No (9) Type 2 diabetes mellitus with diabetic polyneuropathy Status: Chronic Current Visit: No (10) History of coronary artery stent placement Status: Resolved Comment: PCI-DARA mid LAD w/ 2.25 x 16 mm Promus Synergy, DARA prox LAD w/ 2.5 x 12 mm Promus Synergy 09/21/2018 Current Visit: No - Allergies/Procedures Done in Hospital Allergies/Adverse Reactions: Allergies Penicillins Allergy (Verified 06/12/19 23:24) Shortness of breath vancomycin Allergy (Verified 06/13/19 00:58) Itching metronidazole Adverse Reaction (Verified 06/12/19 23:24) Nausea OXYCONTIN Allergy (Uncoded 06/12/19 23:24) Shortness of breath Procedures: None - Type of Care/Length of Stay Estimated LOS: Convalescent Care Less Than 30 days Type of Care Needed: Skilled Rehab Potential: Fair Prognosis: Fair - Additional Orders/Day of Discharge Day of Discharge: 06/16/19 - Dietary and Speech Recommendations Dietitian Recommendations/Changes: Continue 1800 calorie controlled diet. Recommend 1 packet Ted BID for wound healing. - Follow Up Care Primary Care Physician: Raúl Eric MD [Primary Care Provider] - Please follow up with your Primary Care Physician in: 1-2 weeks Please Follow Up With: Lavern Edgar DPM - keep current appointment When: as directed Please Follow Up With: Kike Tello MD When: 3-4 weeks
[2019-06-16 11:35] LABS: Bedside Glucose 160 mg/dL (70-110)
--- NOTE | 2019-06-16 12:00 | CASEMGMT ---
Social Work Patient accepted at the [facility] and plans to discharge to the [facility] under skilled services. All agreeable to plan. Green sheet on chart. Nusrat SALAZAR, FLEX
--- NOTE | 2019-06-16 14:28 | PCM.DC.SUM ---
Discharge Date and Diagnosis - Problem List Patient Problems: Active and Suspected Problems (This Medical Record has been edited. Action required.) Diabetic foot infection (Acute) Osteomyelitis of left foot (Acute) Abscess of left foot (Acute) Cellulitis of left foot (Acute) Non-compliance (Acute) Date of Admission: 06/13/19 Date of Discharge: 06/16/19 - Primary Discharge Diagnosis Active and Suspected Problems (This Medical Record has been edited. Action required.) Diabetic foot infection (Acute) Osteomyelitis of left foot (Acute) Abscess of left foot (Acute) Cellulitis of left foot (Acute) Non-compliance (Acute) Poorly controlled DMt2 peripheral neuropathy RLS CAD CKDIII HTN Depression recent Yersinia gastroenteritis - Secondary Discharge Diagnosis Chronic Problems (This Medical Record has been edited. Action required.) Type 2 diabetes mellitus with diabetic polyneuropathy (Chronic) Delayed wound healing (Chronic) Malnutrition (Chronic) Chronic ulcer of left foot with fat layer exposed (Chronic) Type 2 diabetes mellitus with diabetic polyneuropathy (Chronic) Essential (primary) hypertension (Chronic) Ulcer of right lower extremity with fat layer exposed (Chronic) Chronic ulcer of left foot with fat layer exposed (Chronic) Ischemic cardiomyopathy (Chronic) EF 45% Atherosclerosis of [place] coronary artery of [place] heart without angina pectoris (Chronic) PCI-DARA mid LAD w/ 2.25 x 16 mm Promus Synergy, DARA prox LAD w/ 2.5 x 12 mm Promus Synergy 09/21/2018 HLD (hyperlipidemia) (Chronic) Hospital Course and Treatment Imaging Results: RAD/Foot min 3 Views IMPRESSION: Status post fifth proximal metatarsal amputation with interval small amount of soft tissue calcification at the distal aspect of the remaining metatarsal. There is also interval development of linear lucency through the residual metatarsal stump representing likely an subacute fracture involving the fifth metatarsal.. There is overlying soft tissue ulceration. Remaining bones and joint spaces are intact. MRI/Lower Ext No Joint W/WO Cont IMPRESSION: Findings compatible with osteomyelitis involving the fifth metatarsal remnant. There is also osteomyelitis involving the base of the fourth metatarsal. Diffuse cellulitis. Myositis as discussed There is an abscess seen adjacent to the base of the fourth metatarsal extending from the skin surface as discussed Again noted are probable neuropathic is in the midfoot. RAD/Foot 2 Views IMPRESSION: Intraoperative localization of the fourth proximal metatarsal diametaphysis of the fifth metatarsal remnant Consultations 06/13/19 01:45 Consult: Onc/Wound/branch specialist Routine Comment: Podiatry - Thierry Segovia Infectious Disease - Omer Operations: None, - Procedures: None Summary of Care Provided: Hospital Course: The patient is a 53 year old F with past medical history as above most notable for severely uncontrolled type 2 diabetes and severe peripheral neuropathy, who has prior multiple toe amputations who presented to the emergency room with increased swelling and pain of the left foot. She has been prescribed Keflex as an outpatient however she had not been taking it appropriately. She also had recently been taking Cipro for Yersinia gastroenteritis. In the ER she appeared to have a nonhealing diabetic foot infection the plantar aspect of the left foot with pus production. She was started on vancomycin and meropenem. X-ray was unremarkable however podiatry recommended MRI. MRI did show osteomyelitis. Infectious disease was consulted. Blood cultures were negative. Her wound cultures did grow out Enterobacter cloaca a enterococcus faecalis, methicillin susceptible staph aureus. Infectious disease transitioned her to cefepime. Dr. Segovia took her to the OR on June 14 and she underwent an incision and drainage and bone biopsy. She continued to improve after surgery. She remains significantly debilitated and requires more care than her previous home health will be able to provide so we recommended prison. The patient was agreeable. Also of note her blood sugars were markedly uncontrolled and her A1c was 12.3 April 09. Her blood sugars were highly fluctuant while she was here as she was noncompliant with her diet. Her family would bring in food from outside the hospital that was not appropriate for diabetic. She will need to complete 6 weeks of cefepime via IV at the half-way. She will need to follow-up with dietary and the wound care center as directed, she should follow-up with infectious disease in 3 to 4 weeks. She will need weekly CBC and BMP checked. She needs to maintain strict nonweightbearing on the LLE and offloading at all times. She was discharged to prison in stable condition. Please also follow-up with PCP in 1 to 2 weeks. This patient was seen by Donovan Samuels PA-C under the supervision of Doctor Perez. [] Patient Problems: Active and Suspected Problems (This Medical Record has been edited. Action required.) Diabetic foot infection (Acute) Osteomyelitis of left foot (Acute) Abscess of left foot (Acute) Cellulitis of left foot (Acute) Non-compliance (Acute) - Physical Exam General: Alert, Oriented x3, Cooperative HEENT: Atraumatic, PERRLA, EOMI, Normocephalic Neck: Supple, No JVD, Negative Carotid Bruits Lungs: Clear to auscultation, Normal air movement Cardiovascular: Regular rate, No murmurs Abdomen: Bowel Sounds Present, Soft, Non Tender Extremities: No edema, Capillary Refill Less than 3 Seconds Skin: No rashes, No breakdown Musculoskeletal: No Tenderness to Palpation of Joints or Extremities Neurological: Cranial nerves II-XII grossly intact Psych/Mental Status: Flat Affect, Alert and oriented to time, place, person, mood and affect Vital Signs Temp Pulse Resp BP Pulse Ox 99.0 F 75 16 142/82 H 99 06/16/19 09:11 06/16/19 09:11 06/16/19 09:11 06/16/19 09:11 06/16/19 09:11 Oxygen Delivery Method Room Air Weight: 200 lb 13.458 oz Body Mass Index (BMI) 32.4 Finger Stick Blood Glucose 182 Intake and Output for Last 24 Hours 06/14/19 06/15/19 06/16/19 23:59 23:59 23:59 Intake Total 1772.83 / 1772.83 2508.84 / 3108.84 886.75 / 886.75 Balance 1772.83 / 1772.83 2508.84 / 3108.84 886.75 / 886.75 Microbiology Past 72 Hours 06/14/19 17:34 Gram Stain - Final Biopsy - Bone Wound Culture - Preliminary No growth-Final to follow 06/13/19 11:50 Gram Stain - Final Wound - Left Foot Wound Culture - Final Enterobacter cloacae complex Enterococcus faecalis Staphylococcus aureus Gram positive elinor 06/13/19 01:20 Gram Stain - Final Wound - Left Foot Wound Culture - Final Enterobacter cloacae complex Staphylococcus aureus 06/12/19 23:40 Blood Culture - Preliminary Blood Culture (Wb) - Anticubital Right No growth in 48 hours. 06/12/19 23:40 Blood Culture - Preliminary Blood Culture (Wb) - Anticubital Left No growth in 48 hours. 06/14/19 17:34 Gram Stain - Final Biopsy - Bone Wound Culture - Preliminary No growth-Final to follow POC Glucose 06/16/19 06/16/19 06/16/19 11:27 08:44 02:06 POC Glucose 160 H 266 H 422 H 06/15/19 06/15/19 22:47 16:29 POC Glucose 436 H 163 H Discharge Diet: Low fat/ Low Cholesterol, 1800 Calorie Control Diet, 2000 mg Sodium Diet Discharge Activity: Return to Normal Activity Home Medications: Medications to take at Discharge Gabapentin [Neurontin] 900 mg PO TIDCM 09/20/18 Atorvastatin Calcium [Lipitor] 80 mg PO QHS 09/23/18 Lisinopril [Zestril] 5 mg PO DAILY 09/23/18 Metoprolol Tartrate [Lopressor (beta kunal)] 12.5 mg PO BID 09/23/18 Clopidogrel Bisulfate [Plavix] 75 mg PO DAILY 12/21/18 Calcium Carbonate [Tums] 500 mg PO Q4H PRN PRN 04/02/19 Melatonin 3 mg PO QHS PRN PRN tab 04/11/19 Multivitamins,Therapeutic [Multivitamin] 1 tab PO DAILYCM 04/11/19 Zinc Sulfate (50mg elemental) [Zinc Sulfate] 220 mg PO DAILY 04/11/19 Insulin Lispro [Humalog KwikPen] 17 unit SUBCUT TIDCM #1 insuln.pen 05/14/19 Iron Polysaccharide Complex [Ferrex 150] 150 mg PO DAILYCM #30 cap 05/14/19 Paroxetine [Paxil] 20 mg PO QHS #30 tab 05/14/19 Pramipexole Di-HCl [Mirapex] 1.5 mg PO BID #90 tab 05/14/19 Ondansetron [Zofran Odt] 4 mg PO Q8H PRN PRN #10 tab 06/06/19 Acetaminophen [Tylenol Tablet] 650 mg PO Q6H PRN PRN #0 tab 06/16/19 Cefepime HCl [Maxipime] 2 gm IV Q8 vial 06/16/19 Glucerna Shake 120 ml PO 4X/DAY liquid 06/16/19 Insulin Glargine [Lantus SoloStar Pen] 25 units SUBCUT BREAKFAST pen 06/16/19 Insulin Lispro [Humalog KwikPen] See Protocol SUBCUT ACHS & 3AM insuln.pen 06/16/19 Oxycodone [Oxyir] 5 mg PO Q4H PRN PRN 3 Days #18 tab 06/16/19 Polyethylene Glycol 3350 [Miralax] 17 gm PO DAILY PRN packet 06/16/19 Zolpidem Tartrate [Ambien] 5 mg PO QHS PRN PRN #3 tab 06/16/19 Following Prescrptions Were Given to Patient: Zolpidem Tartrate [Ambien] 5 mg PO QHS PRN PRN #3 tab PRN Reason: Insomnia Prescription Printed Oxycodone [Oxyir] 5 mg PO Q4H PRN PRN 3 Days #18 tab PRN Reason: Moderate Pain (4-5/10) Prescription Printed Primary Care Physician: Raúl Eric MD [Primary Care Provider] - Please follow up with your Primary Care Physician in: 1-2 weeks Please Follow Up With: Lavern Edgar DPM - keep current appointment When: as directed Please Follow Up With: Kike Tello MD When: 3-4 weeks Disposition: Senior Living facility Minutes spent on discharge:: 35 Patient Condition:: Stable Medical Necessity - Tobacco Use Smoking Status: Never smoker Meaningful Use Info Meaningful Use Diagnoses (Choose all that apply): None applicable
[2019-06-16 14:45] VITALS: BP 140/68; PULSE 76; RESP 14; TEMP 36.9; O2SAT 98
[2019-06-16 17:21] LABS: Bedside Glucose 144 mg/dL (70-110)
== END 2019-06-16 18:33 | disposition skilled nursing facility (03) | DRG 41 ==
LOC: ED 06-13 01:05 → PCU 06-13 01:29
PROVIDERS: Internal Medicine Infectious Disease; Physician Assistant; Podiatrist; Admitting Provider Hospitalist; Emergency Provider Emergency Medicine; Family Provider Family Medicine; PCP Family Medicine; Visit Provider Internal Medicine
PROC: 0QBP3ZX Excision of Left Metatarsal, Percutaneous Approach, Diagnostic (ICD-10-PCS; principal; 2019-06-14 16:10)
DX: E11.42 Type 2 diabetes mellitus with diabetic polyneuropathy (principal); M86.8X7 Other osteomyelitis, ankle and foot; A04.6 Enteritis due to Yersinia enterocolitica; L03.116 Cellulitis of left lower limb; L97.319 Non-pressure chronic ulcer of right ankle with unspecified severity; L02.612 Cutaneous abscess of left foot; E11.69 Type 2 diabetes mellitus with other specified complication; L97.522 Non-pressure chronic ulcer of other part of left foot with fat layer exposed; E11.22 Type 2 diabetes mellitus with diabetic chronic kidney disease; E11.65 Type 2 diabetes mellitus with hyperglycemia; N18.3 Chronic kidney disease, stage 3 (moderate); B95.61 Methicillin susceptible Staphylococcus aureus infection as the cause of diseases classified elsewhere; I25.10 Atherosclerotic heart disease of native coronary artery without angina pectoris; G25.81 Restless legs syndrome; F32.9 Major depressive disorder, single episode, unspecified; I12.9 Hypertensive chronic kidney disease with stage 1 through stage 4 chronic kidney disease, or unspecified chronic kidney disease; E78.5 Hyperlipidemia, unspecified; I25.5 Ischemic cardiomyopathy; I25.2 Old myocardial infarction; Z79.4 Long term (current) use of insulin; Z95.5 Presence of coronary angioplasty implant and graft; Z79.02 Long term (current) use of antithrombotics/antiplatelets; Z89.422 Acquired absence of other left toe(s); Z89.421 Acquired absence of other right toe(s)
CPT/HCPCS: 36415; 36569; 73620; 73630; 73720; 76000; 80048; 80202; 82009; 82962; 83605; 85025; 85652; 86140; 87040; 87070; 87075; 87077; 87102; 87186; 87205; 87206; 87640; 88304; 88305; 88311; 93005; 97110; 97162; 97166; 97530; 97802; 99285; A9575; J0878; J2185; J7030; J7050; J7120; A4216; J0744; J3490

== ENCOUNTER 2019-08-20 02:06 | Emergency (ER) | payer MEDICARE, SELFPAY ==
[2018-09-21 13:23] VITALS: BMI 29.3
[2019-06-13 03:49] VITALS: BMI 32.4
[2019-08-20 02:07] VITALS: BP 123/59; BP 129/80; PULSE 84; PULSE 88; RESP 15; RESP 17; TEMP 36.4; O2SAT 97; O2SAT 98; BMI 29.2
--- NOTE | 2019-08-20 02:27 | ED.VIS.GEN ---
History of Present Illness Chief Complaint: Alt LOC Informant: Patient Narrative: Patient stated that this evening prior to arrival she woke up and could not see well out of her eyes. She can see shadows and the color of my hair but she is having difficulty seeing. She stated she is never had this before. No injury. She does states she has a frontal throbbing aching headache. She does not normally get migraines. Denies any nausea or vomiting. Current severity is moderate. Called EMS who brought her in for further evaluation. She denies any chest pain or shortness of breath. She has a history of diabetic neuropathy with diabetic wounds. She has wounds on her ankles and feet that are being treated. She stated they are not red or infected. - Past Medical History (1) Abscess of left foot Status: Acute (2) Cellulitis of left foot Status: Acute (3) Diabetic foot infection Status: Acute (4) Diarrhea Status: Acute (5) Hyperglycemia Status: Acute (6) Non-compliance Status: Acute (7) Osteomyelitis of left foot Status: Acute (8) Atherosclerosis of [place] coronary artery of [place] heart without angina pectoris Status: Chronic Comment: PCI-DARA mid LAD w/ 2.25 x 16 mm Promus Synergy, DARA prox LAD w/ 2.5 x 12 mm Promus Synergy 09/21/2018 (9) Chronic ulcer of left foot with fat layer exposed Status: Chronic (10) Chronic ulcer of left foot with fat layer exposed Status: Chronic (11) Delayed wound healing Status: Chronic (12) Essential (primary) hypertension Status: Chronic (13) HLD (hyperlipidemia) Status: Chronic (14) Ischemic cardiomyopathy Status: Chronic Comment: EF 45% (15) Malnutrition Status: Chronic (16) Type 2 diabetes mellitus with diabetic polyneuropathy Status: Chronic (17) Type 2 diabetes mellitus with diabetic polyneuropathy Status: Chronic (18) Ulcer of right lower extremity with fat layer exposed Status: Chronic (19) Enteritis, Yersinia enterocolitica Status: Resolved (20) History of coronary artery stent placement Status: Resolved Comment: PCI-DARA mid LAD w/ 2.25 x 16 mm Promus Synergy, DARA prox LAD w/ 2.5 x 12 mm Promus Synergy 09/21/2018 (21) NSTEMI (non-ST elevated myocardial infarction) Status: Resolved Past Medical History - Allergies and Home Meds Allergies/Adverse Reactions: Allergies Penicillins Allergy (Verified 08/20/19 02:14) Shortness of breath vancomycin Allergy (Verified 08/20/19 02:14) Itching metronidazole Adverse Reaction (Verified 08/20/19 02:14) Nausea OXYCONTIN Allergy (Uncoded 08/20/19 02:14) Shortness of breath Primary Care Physician: Raúl Eric MD [Primary Care Provider] - Prior records reviewed: Yes Past Medical History: - - See problem list Surgical History: angioplasty - with stent., - - Severel R foot toe amputations and I+Ds, BL carpal tunnel surgery 1994, right shoulder surgery in 1994, section x2, most recently LLE I+D. Lives: Alone Smoking Status: Never smoker Alcohol: None Drugs: None - Family History Paternal Family History: Reports: - - Patient states her father when she was 5 years old, denies known medical history, denies known cardiac history. Maternal Family History: Reports: Cancer - Patient had a brother who had testicular cancer; and later cancer in his stomach., Diabetes, Hypertension, - - Her mother at the age of 67 to a blood clot to the brain. She had had multiple strokes preceding that. Patient had 3 brothers who had bypass surgery in their 50s. Sibling Family History: Reports: - - She has one brother who is secondary to cancer and she does not know what kind of cancer he had. She also has 3 brothers with a history of cardiovascular disease, stents and coronary artery bypass grafting. Review of Systems General: Denies: Chills, Fever, Sweats Eyes: Reports: Visual changes - bilaterally. Denies: Diplopia ENT: Denies: Rhinorrhea, Sore throat Cardiovascular: Denies: Chest pain, Palpitations Respiratory: Denies: Dyspnea, Cough, Dyspnea on exertion Gastrointestinal: Denies: Abdominal pain, Nausea, Vomiting, Diarrhea, Melena, Hematochezia Genitourinary: Denies: Dysuria, Hematuria, Frequency Musculoskeletal: Denies: Back pain, Extremity Pain Skin: Denies: Rash, Wounds Neurological: Reports: Headache. Denies: Weakness, Numbness Physical Exam Vital Signs/Narrative: Vital Signs Temp Pulse Resp BP Pulse Ox 08/20/19 02:07 97.5 F L 84 17 129/80 H 97 General: Well nourished, Well developed, No Acute Distress Head: Normocephalic, Atraumatic Eyes: Perrl, - - Patient has difficulty tracking secondary to visual difficulty. Patient can only make out my silhouette and hair color ENT: Moist mucous membranes, No rhinorrhea Neck: Supple, Nontender Cardiovascular: Regular rate, Regular rhythm, No murmurs Respiratory: No distress, CTA bilaterally, Chest nontender Abdomen: Soft, Nontender, Nondistended, Normal bowel sounds Back: Nontender, Normal Inspection Extremities: Nontender, No edema Skin: Normal color, No rash Neurological: Alert, Oriented x3, Normal Strength, Normal Sensation, Inattentive - Scared secondary to her symptoms. Negative for: Cranial nerves II-XII grossly intact Psychological: Normal affect, Normal Mood Diagnostic/Tx/Re-eval Impressions Brain CT 08/20/19 02:30 IMPRESSION: Negative CT brain without contrast. Electronically Signed: Juanjo Laverne, at 2:51 EST Tel , Service support , 08/20/19 02:30 Brain/Head without Contrast [CT] Stat Laboratory Results 08/20/19 08/20/19 08/20/19 02:10 02:10 02:10 WBC 8.5 RBC 4.37 Hgb 12.7 Hct 39.3 MCV 89.9 MCH 29.1 MCHC 32.3 RDW Std Deviation 41.6 RDW Coeff of Fior 12.7 Plt Count 335 MPV 11.5 Immature Gran % (Auto) 0.400 Neut % (Auto) 69.6 Lymph % (Auto) 21.2 [place] % (Auto) 6.7 Eos % (Auto) 1.5 Baso % (Auto) 0.6 Absolute Neuts (auto) 5.9 Absolute Lymphs (auto) 1.80 Nucleated RBC % 0 PT INR APTT Sodium 141 Potassium 3.6 Chloride 105 Carbon Dioxide 29.0 Anion Gap 7 BUN 21 H Creatinine 1.11 H Estim Creat Clear Calc 56.34 Est GFR (MDRD) Af Amer 66 Est GFR (MDRD) Non-Af 54 L BUN/Creatinine Ratio 18.9 Glucose 108 H Calcium 9.8 Urine Opiates Screen Urine Methadone Screen Ur Barbiturates Screen Ur Phencyclidine Scrn Ur Amphetamines Screen U Methamphetamin-MDMA U Benzodiazepines Scrn Urine Cocaine Screen U Cannabinoids Screen Ur Drug Screen Comment Ethyl Alcohol < 3.0 08/20/19 08/20/19 02:10 03:15 WBC RBC Hgb Hct MCV MCH MCHC RDW Std Deviation RDW Coeff of Fior Plt Count MPV Immature Gran % (Auto) Neut % (Auto) Lymph % (Auto) [place] % (Auto) Eos % (Auto) Baso % (Auto) Absolute Neuts (auto) Absolute Lymphs (auto) Nucleated RBC % PT 13.0 INR 1.0 APTT 28.3 Sodium Potassium Chloride Carbon Dioxide Anion Gap BUN Creatinine Estim Creat Clear Calc Est GFR (MDRD) Af Amer Est GFR (MDRD) Non-Af BUN/Creatinine Ratio Glucose Calcium Urine Opiates Screen NEGATIVE Urine Methadone Screen NEGATIVE Ur Barbiturates Screen NEGATIVE Ur Phencyclidine Scrn NEGATIVE Ur Amphetamines Screen NEGATIVE U Methamphetamin-MDMA NEGATIVE U Benzodiazepines Scrn NEGATIVE Urine Cocaine Screen NEGATIVE U Cannabinoids Screen NEGATIVE Ur Drug Screen Comment Ethyl Alcohol - Medical Decision Making IV established patient given lab work and CT head. CT head negative. EKG shows normal sinus rhythm at a rate of 86 without ischemia or arrhythmia. Lab work shows a normal CBC BMP urine tox and alcohol. She does have a mildly elevated creatinine of 1.1. On reevaluation patient was given a migraine cocktail. This was with Compazine Toradol Benadryl. On reevaluation her headache is resolved. Her visual changes are also resolved. She did develop restless legs but she has had in the past. She took 1 of her oxycodone was given a dose of morphine. [place] much better after this. At this time I feel the patient likely had a complex migraine with visual changes. I do not think she had a subarachnoid hemorrhage. Her headache is resolved as well as her visual changes. I do not think she needs an LP. She was able to stand up. She we will follow-up as an outpatient. ED Disposition - Plan for ED Patient: Disposition: Psychiatric Hospital or Unit Diagnosis: Migraine headache, Restless legs Instructions: What Are Migraine and Tension Headaches? Referrals: Raúl Eric MD [Primary Care Provider] -
--- NOTE | 2019-08-20 02:30 | CT_ITS ---
STUDY: CT BRAIN WITHOUT CONTRAST REASON FOR EXAM: Female, 54 years old. Altered level of consciousness and headache. TECHNIQUE: Transaxial CT imaging of the brain was performed without administration of intravenous contrast material. Individualized dose optimization techniques were used for this CT. COMPARISON: 05/10/2018 CT brain. FINDINGS: No evidence of intracranial hemorrhage, mass, infarct or hydrocephalus. No skull fracture. Visualized paranasal sinuses and mastoid air cells patent. Visualized extracranial soft tissues unremarkable. CT/Brain/Head without Contrast IMPRESSION: Negative CT brain without contrast. Electronically Signed: Juanjo Galloway, at 2:51 EST Tel , Service support ,
[2019-08-20 02:46] LABS: Absolute Neutrophil Count 5.9 X10^3/uL (2.0-7.7); Basophil# 0.05 X10^3/uL; Basophil% 0.6 % (0-1); Eosinophil# 0.13 X10^3/uL; Eosinophils% 1.5 % (0-5); Hematocrit 39.3 % (37-47); Hemoglobin 12.7 g/dL (12.0-15.0); Lymphocyte % 21.2 % (19-41); Mean Corp Hgb Conc 32.3 g/dL (32-36); Mean Corpuscular Hgb 29.1 pg (27.0-32.0); Mean Corpuscular Volume 89.9 fL (81-99); Mean Platelet Vol. 11.5 fl (6.2-12.0); Monocyte# 0.57 X10^3/uL; Monocyte% 6.7 % (0-10); NRBC Flagged by Analyzer 0 % (0-5); Neutrophil # 5.92 X10^3/uL (2.7-7.7); Neutrophil % 69.6 % (47-70); Platelet Count 335 K/mm3 (150-450); RBC Distribution Width CV 12.7 % (11.6-14.6); RBC Distribution Width SD 41.6 fl (35.1-43.9); Red Blood Count 4.37 M/mm3 (4.2-5.4); White Blood Count 8.5 K/mm3 (4.4-11.0)
[2019-08-20 02:55] LABS: Anion Gap 7 (5-15); BUN 21 mg/dL (7-18); BUN/Creat Ratio 18.9 RATIO (10-20); Calcium,Total 9.8 mg/dL (8.5-10.1); Chloride 105 mmol/L (98-107); Creatinine, Serum 1.11 mg/dL (0.55-1.02); EST Glomerular Filtration Rate 54 mL/min (>60); Est Glom Filt Rate - Afr Amer 66 mL/min (>60); Estimated Creatinine Clearance 56.34 ml/min; Glucose 108 mg/dL (74-106); Potassium 3.6 mmol/L (3.5-5.1); Sodium Level 141 mmol/L (136-145)
[2019-08-20 03:10] LABS: Alcohol, Blood (Medical)-Serum < 3.0 mg/dL
--- NOTE | 2019-08-20 03:11 | EKG12_ITS ---
Test Reason : Blood Pressure : / mmHG Vent. Rate : 086 BPM Atrial Rate : 086 BPM P-R Int : 150 ms QRS Dur : 088 ms QT Int : 370 ms P-R-T Axes : 028 007 019 degrees QTc Int : 442 ms Normal sinus rhythm Septal infarct , age undetermined Abnormal ECG Confirmed by OTTO DELVALLE, DOMINIQUE ([id number]), rewrite editor KAROLINA DE LA O ([id number]) on 08/21/2019 1:51:00 PM Referred By: CECILIA Confirmed By:DOMINIQUE MENJIVAR MD
[2019-08-20 03:38] LABS: Amphetamine Urine VISTA NEGATIVE (<1000 ng/mL); Barbiturate Urine VISTA NEGATIVE (< 200 ng/mL); Benzodiazepine Urine VISTA NEGATIVE (< 200 ng/mL); Cocaine Urine VISTA NEGATIVE (< 300 ng/mL); Ecstacy Urine VISTA NEGATIVE (< 500 ng/mL); Methadone Urine VISTA NEGATIVE (< 300 ng/mL); PCP Urine VISTA NEGATIVE (< 25 ng/mL); THC Urine VISTA NEGATIVE (< 50 ng/mL); Vista UDS pH Range 6
[2019-08-20 03:49] LABS: Partial Thromboplast Time 28.3 Seconds (24.1-36.2)
[2019-08-20 04:07] VITALS: BP 122/92; PULSE 91; RESP 15; O2SAT 97
[2019-08-20] MEDS: proCHLORPERazine 10 MG/2 ML Vial IV (04:30)
[2019-08-20] MEDS: Ketorolac 30 MG/ML Syringe IV (04:33)
[2019-08-20] MEDS: DiphenhydrAMINE 50 MG/ML Syringe 25 MG IV ×2 (04:33→05:00)
--- NOTE | 2019-08-20 05:28 | ED.RN ---
PER DR JARAMILLO, PT ALLOWED TO TAKE HER HOME PERCOCET. PT GIVEN A GLASS OF WATER AND TOOK ONE PILL FROM HER PERCOCET BOTTLE
[2019-08-20] MEDS: Morphine 4 MG/ML Syringe IV (05:31)
[2019-08-20 05:34] VITALS: BP 151/79
[2019-08-20 06:45] VITALS: BP 125/74; PULSE 99; RESP 15; O2SAT 95
== END 2019-08-20 07:39 | disposition home or self-care (01) ==
PROVIDERS: Emergency Provider Emergency Medicine; Family Provider Family Medicine; PCP Family Medicine
DX: G43.909 Migraine, unspecified, not intractable, without status migrainosus (principal); G25.81 Restless legs syndrome; E11.42 Type 2 diabetes mellitus with diabetic polyneuropathy; L97.902 Non-pressure chronic ulcer of unspecified part of unspecified lower leg with fat layer exposed; L97.522 Non-pressure chronic ulcer of other part of left foot with fat layer exposed; I25.10 Atherosclerotic heart disease of native coronary artery without angina pectoris; I10 Essential (primary) hypertension; E78.5 Hyperlipidemia, unspecified; I25.5 Ischemic cardiomyopathy; E46 Unspecified protein-calorie malnutrition; I25.2 Old myocardial infarction; Z91.19 Patient's noncompliance with other medical treatment and regimen; Z79.02 Long term (current) use of antithrombotics/antiplatelets; Z79.4 Long term (current) use of insulin; Z79.899 Other long term (current) drug therapy; Z88.1 Allergy status to other antibiotic agents; Z88.0 Allergy status to penicillin
CPT/HCPCS: 70450; 80048; 80307; 80320; 85025; 85610; 85730; 93005; 96361; 96374; 96375; 99285; J7030; J7040; A4216; G0480

== ENCOUNTER 2019-09-15 06:36 | Emergency (ER) | payer MEDICARE, SELFPAY ==
[2018-09-21 13:23] VITALS: BMI 29.3
[2019-09-12 10:45] VITALS: BMI 30.7
[2019-09-15 06:38] VITALS: BP 124/67; PULSE 81; RESP 16; TEMP 36.3; O2SAT 97; BMI 35.9
[2019-09-15 06:45] LABS: Bedside Glucose 90 mg/dL (70-110)
[2019-09-15 06:50] VITALS: TEMP 36.3
--- NOTE | 2019-09-15 07:11 | CT_ITS ---
STUDY: CT BRAIN WITHOUT CONTRAST REASON FOR EXAM: Female, 54 years old. Slurred speech. Elevated blood sugar. RADIATION DOSAGE (If Supplied By Facility): CTDIvol = ( 44.99 ) mGy, DLP = ( 745.49 ) mGycm TECHNIQUE: Transaxial CT imaging of the brain was performed without administration of intravenous contrast material. Individualized dose optimization techniques were used for this CT. COMPARISON: August 20, 2019 and December 30, 2015 FINDINGS: Normal soft tissue structures. Normal calvarium. Normal size ventricles and extra-axial spaces for the patient''s age. Normal white matter tracts of the cerebral hemispheres. Normal basal ganglia and thalami. Normal brainstem. Normal cerebellum. There is no intracranial hemorrhage. There are no findings of an acute ischemic infarction. Normal visualized paranasal sinuses. CT/Brain/Head without Contrast IMPRESSION: Normal unenhanced CT scan of the brain. Electronically Signed: Shayne Rojas MD at 8:03 EST , Service support ,
--- NOTE | 2019-09-15 07:12 | EKG12_ITS ---
Test Reason : GENERAL ILLNESS Blood Pressure : / mmHG Vent. Rate : 079 BPM Atrial Rate : 079 BPM P-R Int : 152 ms QRS Dur : 090 ms QT Int : 392 ms P-R-T Axes : 032 006 036 degrees QTc Int : 449 ms Normal sinus rhythm Normal ECG Confirmed by MARIELENA DELVALLE, SINDY ([id number]), story editor MARLON GALEANA ([id number]) on 09/16/2019 12:02:09 PM Referred By: FRANCI Confirmed By:MARISOL PEGUERO MD
[2019-09-15 07:26] LABS: Absolute Lymphocyte Count 1.58 X10^3/uL (0.83-4.51); Absolute Neutrophil Count 6.1 X10^3/uL (2.0-7.7); Basophil# 0.04 X10^3/uL; Basophil% 0.5 % (0-1); Eosinophil# 0.12 X10^3/uL; Eosinophils% 1.4 % (0-5); Hematocrit 36.9 % (37-47); Lymphocyte # 1.58 X10^3/ul (4.0); Lymphocyte % 18.5 % (19-41); Mean Corp Hgb Conc 32.5 g/dL (32-36); Mean Corpuscular Hgb 29.1 pg (27.0-32.0); Mean Corpuscular Volume 89.3 fL (81-99); Mean Platelet Vol. 11.3 fl (6.2-12.0); Monocyte# 0.63 X10^3/uL; Monocyte% 7.4 % (0-10); NRBC Flagged by Analyzer 0 % (0-5); Neutrophil # 6.14 X10^3/uL (2.7-7.7); Neutrophil % 71.7 % (47-70); Platelet Count 331 K/mm3 (150-450); RBC Distribution Width CV 12.4 % (11.6-14.6); RBC Distribution Width SD 40.7 fl (35.1-43.9); Red Blood Count 4.13 M/mm3 (4.2-5.4); White Blood Count 8.6 K/mm3 (4.4-11.0)
[2019-09-15] MEDS: Ondansetron 4 MG/2 ML Vial IV (07:27)
--- NOTE | 2019-09-15 07:29 | ED.DCSUM_ITS ---
- ER Visit Summary Date of Service: 09/15/19 Chief Complaint: Blood sugar too low History of Present Illness: The patient is a [address] Mik Kirk, Dr. Jean Baptiste, and the wound clinic. She is a poor informant. She reports that approximately 11:00 last night her blood sugar was 500 so she took 20 units of NovoLog. She checked her sugar again at 3:00 in the morning and it was 300 so she took 15 units of NovoLog. She states her sugar then dropped to 80. When this occurred she was nauseated, lightheaded, had slurred speech. She ate a cookie and is now on liters and feels much improved now. Patient reports that her blood sugars typically in the 200s. On review of systems patient reports that she has chest pain and shortness of breath. She is unable to elucidate on the timeframe of these. She reports that they are from my diabetes. She has a nonproductive cough. She denies fever or chills. She denies abdominal pain. She does report that she is nauseated, but has not vomited. She has had diarrhea for the past 4 days approximately 3 times a day. No blood in her stools. No dysuria or frequency. Patient denies any other neurologic symptoms. She denies headache, numbness, weakness, change in her vision, or vertigo. Of note the patient does have a history of depression and anxiety. She reports that her brother 2 days ago. She denies any suicidal ideation. She does not see a counselor or a psychiatrist. Physical Examination: Vitals: Stable. Afebrile. General: Well-nourished and well-developed. Head: Normocephalic atraumatic. Neck: Supple, no lymphadenopathy. No JVD. Nontender. Cardiovascular: Regular rate and rhythm. No murmurs. Respiratory: No respiratory distress. Clear to auscultation bilaterally. Abdominal: Soft, nontender, nondistended, normal bowel sounds. No guarding, rebound, or peritoneal signs. Back: Nontender. Extremities: Nontender, no edema. She has a quarter sized ulcer over the right lateral malleolus. There is granulation tissue present. There is no surrounding erythema, induration, fluctuance, drainage, or odor to suggest infection. She has a 3 cm ulcer on the plantar surface of her left foot laterally that has granulation tissue present. Again there is no surrounding erythema, induration, fluctuance, or odor to suggest infection. 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 Skin: Normal color, no rash. Neurologic: Alert and oriented ?3. Cranial nerves II through XII are intact. Normal strength and sensation. NIH scale is 0. Mental status exam: Patient appears their stated age. Good posture and grooming. Good eye contact. Normal rate, volume, and latency of speech. No suicidal or homicidal ideation. No auditory or visual hallucinations. Flow of thought is logical. Insight and judgment is fair. Test Results: CBC is remarkable for hematocrit of 36.9, segmented neutrophils of 72, lymphocytes of 19. Chem-7 is marked for chloride of 109, BUN 28, creatinine 1.07. Of note her glucose is 106 on the BMP. LFTs marked for an albumin of 3.1, total bili 0.1, alk phos of 122. Troponin is negative. EKG is sinus at [address] changes. Is unchanged from last month. Chest x-ray shows poor inspiration atelectasis. No acute disease. CT brain is normal. Urinalysis is negative. Emergency Department Course and Treatment: Patient was treated with Zofran for her nausea. She was given a 500 cc bolus of normal saline. Her blood sugar here is 90. She is resting comfortably. I suspect that the patient's symptoms earlier were due to her blood sugar being in the 80s when she is used to them being 200s. Treatment Plan: I had a prolonged discussion with the patient about her insulin dosing. She will be discharged instructions follow-up Dr. Eric in 2 days for another exam. I have also suggested that she go to the counseling center. Return to the emergency department for any worsening symptoms. Disposition: To home in improved and stable condition. Impression: 1. Hypoglycemia. 2. Depression. This note was generated with [employer] dictation software. It may contain incorrect words, spelling, and punctuation that were not noted in review of the chart prior to signing ED Disposition - Plan for ED Patient: Instructions: Diabetic Insulin Reaction Referrals: Raúl Eric MD [Primary Care Provider] - 2 Days Counseling,Center [GROUP OF PHYSICIANS] - As soon as possible
--- NOTE | 2019-09-15 07:35 | RAD_ITS ---
STUDY: X-RAY CHEST REASON FOR EXAM: Female, 54 years old. General illness, cough, sugar issues. TECHNIQUE: PA and lateral views of the chest. COMPARISON: Portable AP upright chest x-ray September 28, 2018. FINDINGS: Stable mild elevation of the right diaphragm. The lungs are moderately expanded. There are small, subsegmental stranding or patchy densities in the lung bases, likely subsegmental atelectasis. There is no demonstrated pleural abnormality. The heart size is upper normal to borderline enlarged. Normal mediastinum and elvie. Normal visualized pulmonary arteries. Normal visualized aortic arch and descending thoracic aorta. There are stable degenerative changes of the lower thoracic spine. Normal visualized ribs, clavicles, and shoulders. There is no demonstrated abnormality of the visualized soft tissue structures of the upper abdomen. RAD/Chest PA and Lateral IMPRESSION: 1. Suboptimal inspiratory effort with minor bibasilar subsegmental atelectasis. 2. Heart size upper normal to borderline enlarged. No CHF. Electronically Signed: Garrick Hyde MD at 8:21 EST , Service support ,
[2019-09-15 07:39] LABS: ALB/GLOB Ratio 0.7 RATIO (0.9-2.4); AST(SGOT) 16 U/L (15-37); Alanine Aminotransfer ALT/SGPT 19 U/L (13-56); Albumin, Serum 3.1 g/dL (3.2-5.0); Alkaline Phosphatase 122 U/L (45-117); Anion Gap 7 (5-15); BUN 28 mg/dL (7-18); BUN/Creat Ratio 26.2 RATIO (10-20); Calcium,Total 9.2 mg/dL (8.5-10.1); Chloride 109 mmol/L (98-107); Creatinine, Serum 1.07 mg/dL (0.55-1.02); EST Glomerular Filtration Rate 57 mL/min (>60); Est Glom Filt Rate - Afr Amer 69 mL/min (>60); Globulin 4.2 g/dL (2.2-4.2); Glucose 106 mg/dL (74-106); Potassium 3.6 mmol/L (3.5-5.1); Protein, Total 7.3 g/dL (6.4-8.2); Sodium Level 141 mmol/L (136-145)
[2019-09-15 07:56] LABS: Bedside Glucose 91 mg/dL (70-110)
[2019-09-15 09:11] VITALS: BP 111/82; PULSE 82; RESP 18; O2SAT 97
[2019-09-15 09:53] LABS: Mucous, Urine 0 SEEN /hpf (<or=2+); White Blood Cells 0 SEEN /hpf (0-5)
[2019-09-15 10:08] LABS: Color, Urine Yellow (Yellow); Glucose, Dipstick Normal (Normal); Ketone-Dipstick 5 mg/dl (Negative); Leukocyte Esterase-Dipstick Negative /ul (Negative); Nitrite-Dipstick Negative (Negative); Occult Blood-Urine 25 /ul (Negative); Protein-Dipstick 100 mg/dl (Negative); Specific Gravity, Urine 1.025 (1.002-1.030); Urine Bilirubin Dipstick Negative (Negative); Urine Clarity Sl. Cloudy (Clear); Urine Urobilinogen Normal (Normal)
[2019-09-15 10:10] LABS: Bacteria RARE /hpf (None Seen); Hyaline Cast 0-5 SEEN /lpf (0-5); Red Blood Cells-Urine 0-5 SEEN /hpf (0-5); Squamous Epithelial Cells - UA 5-10 SEEN /hpf (5-10)
== END 2019-09-15 11:14 | disposition home or self-care (01) ==
LOC: ED 07:18
PROVIDERS: Emergency Provider Emergency Medicine; Family Provider Family Medicine; PCP Family Medicine
DX: E11.649 Type 2 diabetes mellitus with hypoglycemia without coma (principal); F32.9 Major depressive disorder, single episode, unspecified; I25.10 Atherosclerotic heart disease of native coronary artery without angina pectoris; I25.2 Old myocardial infarction; I10 Essential (primary) hypertension; Z79.4 Long term (current) use of insulin; Z79.02 Long term (current) use of antithrombotics/antiplatelets; Z79.899 Other long term (current) drug therapy
CPT/HCPCS: 36415; 70450; 71046; 80053; 81001; 82962; 84484; 85025; 93005; 96361; 96374; 99285; J7030; A4216; J2405

== ENCOUNTER 2019-10-09 14:45 | Outpatient (RCR) | payer MEDICARE, SELFPAY ==
[2018-09-21 13:23] VITALS: BMI 29.3
[2019-09-12 10:45] VITALS: BP 130/78; PULSE 100; RESP 16; TEMP 36.8; BMI 30.7
--- NOTE | 2019-09-12 14:56 | PCM.WC.PN ---
(1) Type 2 diabetes mellitus with diabetic polyneuropathy Status: Chronic Code(s): E11.42 - Type 2 diabetes mellitus with diabetic polyneuropathy (2) Delayed wound healing Status: Chronic Code(s): T14.8XXD - Other injury of unspecified body region, subsequent encounter (3) Malnutrition Status: Chronic Code(s): E46 - Unspecified protein-calorie malnutrition (4) Ulcer of right lower extremity with fat layer exposed Status: Chronic Code(s): L97.912 - Non-pressure chronic ulcer of unspecified part of right lower leg with fat layer exposed (5) Chronic ulcer of left foot with fat layer exposed Status: Chronic Code(s): L97.522 - Non-pressure chronic ulcer of other part of left foot with fat layer exposed Type of Wound Date of Service: 09/12/19 Chief Complaint: Right ankle diabetic ulcer. left foot ulcer History of Wound: This 54-year-old female returns to clinic for a right ankle ulcer and left foot ulcer. The onset of the right ankle ulcer was approximately 3 months ago. In the left ulcer to the plantar foot has also been at the last couple months. These were previously closed sites. It is noted she has not followed up for the past 3 months and emerges in clinic today. She denies redness or odor. Continues to walk on the ulcer sites at home. Progress of Wound: Return - Physical Exam Vital Signs Temp Pulse Resp BP 98.2 F 100 16 130/78 H 09/12/19 10:45 09/12/19 10:45 09/12/19 10:45 09/12/19 10:45 General: Alert, Oriented x3, Cooperative, No apparent distress HEENT: Atraumatic Extremities: No cyanosis, Capillary Refill Less than 3 Seconds, No Calf Tenderness, Diminished Peripheral Pulses, Edema Skin: Ulcer/ Wound - No purulence, erythema, string, odor, infection. Adjacent skin is hairless and atrophic. There is no probe to bone Wound Measurements and Assessment WC - Nurse 1 - General Ulcer Measurement Start: 09/12/19 10:40 Freq: Status: Active Protocol: Activity Type Activity Date Activity User E-Sign Co-Sign Detail Recorded Client Recorded Date Recorded By Document 09/12/19 10:45 [id number] 09/12/19 11:07 09/12/19 10:45 Wound Center Nurse 1 [Ulcer Assessment] #11 RIGHT LATERAL ANKLE -Combined with other wound No -Current Size (cm) - Length 2.3 -Current Size (cm) - Width 1.9 -Current Size (cm) - Depth 0.1 -Total Square Cm 4.37 -Date of Last Picture (Recall this 09/12/19 field) -Photo Taken Yes -Epithelialization None Present -Tunneling No -Undermining/Tunneling No -Circular Undermining No -Exudate Amt Medium -Exudate Type Serosanguineous -Wound Margin Distinct, Outline Attached -Granulation Amt Large (67-100%) -Granulation Quality Pale,[place] -Necrosis Amt None Present (0 %) -Necrotic Tissue Type Adherent Slough -Structure Exposed None/Limited to Skin Breakdown -Texture (Natacha-wound Skin Appearance) No Abnormality, Assessed -Moisture (Natacha-wound Skin Appearance No Abnormality, ) Assessed -Color (Natacha-wound Skin Appearance) No Abnormality, Assessed -Temperature (Natacha-wound Skin No Abnormality Appearance) (Pt Warm) -Tenderness on Palpation (Natacha-wound No Skin Appearance) -Ulcer Cleansing Rinsed/ Irrigated with Saline -Foul Odor after Cleansing No -Anesthetic Used 4% Lidocaine Solution #10 left lateral foot -Combined with other wound No -Current Size (cm) - Length 0.9 -Current Size (cm) - Width 0.2 -Current Size (cm) - Depth 0.3 -Total Square Cm 0.18 -Date of Last Picture (Recall this 09/12/19 field) -Photo Taken Yes -Epithelialization None Present -Tunneling No -Undermining/Tunneling No -Circular Undermining No -Exudate Amt None Present -Wound Margin Distinct, Outline Attached -Granulation Amt Medium (34-66%) -Granulation Quality Pale,[place] -Slough/Fibrin Yes -Necrosis Amt None Present (0 %) -Necrotic Tissue Type Adherent Slough -Texture (Natacha-wound Skin Appearance) Callus -Moisture (Natacha-wound Skin Appearance Maceration ) -Color (Natacha-wound Skin Appearance) No Abnormality, Assessed -Temperature (Natacha-wound Skin No Abnormality Appearance) (Pt Warm) -Tenderness on Palpation (Natacha-wound No Skin Appearance) -Ulcer Cleansing Rinsed/ Irrigated with Saline -Foul Odor after Cleansing No -Anesthetic Used 4% Lidocaine Solution #9 left plantar -Combined with other wound No -Current Size (cm) - Length 2.6 -Current Size (cm) - Width 3.7 -Current Size (cm) - Depth 0.9 -Total Square Cm 9.62 -Date of Last Picture (Recall this 09/12/19 field) -Photo Taken Yes -Epithelialization None Present -Tunneling No -Undermining/Tunneling Yes -Undermining/Tunneling Starts (O' 5 clock) -Undermining/Tunneling Ends (O'clock) 12 -Maximum Distance (cm) 0.7 -Circular Undermining No -Exudate Amt Large -Exudate Type Serosanguineous -Wound Margin Distinct, Outline Attached -Granulation Amt Large (67-100%) -Granulation Quality Red -Slough/Fibrin Yes -Necrosis Amt None Present (0 %) -Necrotic Tissue Type Adherent Slough -Texture (Natacha-wound Skin Appearance) Callus -Moisture (Natacha-wound Skin Appearance Maceration ) -Color (Natacha-wound Skin Appearance) No Abnormality, Assessed -Temperature (Natacha-wound Skin No Abnormality Appearance) (Pt Warm) -Tenderness on Palpation (Natacha-wound No Skin Appearance) -Ulcer Cleansing Rinsed/ Irrigated with Saline -Foul Odor after Cleansing No -Anesthetic Used 4% Lidocaine Solution [Edema Assessment] -Lower Limb Edema Present NA WC - Nurse 2 - General Ulcer CM Notes Start: 09/12/19 10:40 Freq: Status: Active Protocol: Activity Type Activity Date Activity User E-Sign Co-Sign Detail Recorded Client Recorded Date Recorded By Document 09/12/19 11:24 [id number] 09/12/19 11:28 09/12/19 11:24 Wound Center Nurse 2 [Procedure/Treatment] #11 RIGHT LATERAL ANKLE -Time 11:24 -Correct Patient Yes -Correct Side, Site, Position Yes -Correct Procedure Yes -Procedure Performed Yes -Type of Procedure Debridement -Clinical Debridement Subcutaneous -Post Debridement Size (cm) - Length 2.3 -Post Debridement Size (cm) - Width 2.0 -Post Debridement Size (cm) - Depth 0.2 -Total Square Cm 4.60 -Wound/Ulcer Outcome Not Healed -Ulcer Cleansing Rinsed/ Irrigated with Saline -Foul Odor after Cleansing No -Bioengineered Tissue No -Bleeding Controlled with Pressure -Offloading Yes -Type of Offloading Surgical Shoe -Treatment Response Procedure Tolerated Well #10 left lateral foot -Time 11:24 -Correct Patient Yes -Correct Side, Site, Position Yes -Correct Procedure Yes -Procedure Performed Yes -Type of Procedure Debridement -Clinical Debridement Subcutaneous -Post Debridement Size (cm) - Length 1 -Post Debridement Size (cm) - Width 0.2 -Post Debridement Size (cm) - Depth 0.3 -Total Square Cm 0.2 -Wound/Ulcer Outcome Not Healed -Ulcer Cleansing Rinsed/ Irrigated with Saline -Foul Odor after Cleansing No -Bioengineered Tissue No -Bleeding Controlled with Pressure -Offloading Yes -Type of Offloading Surgical Shoe -Treatment Response Procedure Tolerated Well #9 left plantar -Time 11:27 -Correct Patient Yes -Correct Side, Site, Position Yes -Correct Procedure Yes -Procedure Performed Yes -Type of Procedure Debridement -Clinical Debridement Subcutaneous -Post Debridement Size (cm) - Length 2.6 -Post Debridement Size (cm) - Width 3.8 -Post Debridement Size (cm) - Depth 1 -Total Square Cm 9.88 -Wound/Ulcer Outcome Not Healed -Ulcer Cleansing Rinsed/ Irrigated with Saline -Foul Odor after Cleansing No -Bioengineered Tissue No -Bleeding Controlled with Pressure -Offloading Yes -Type of Offloading Surgical Shoe -Treatment Response Procedure Tolerated Well [See Physician Procedure note for Specifics] Pain Scale: 0-10 Numeric [Pain] -Is Patient Pain Free? Yes Musculoskeletal: No Tenderness to Palpation of Joints or Extremities, Muscle Wasting, - - Equinovarus flexible reducible deformity noted bilateral lower extremities with prominent right lateral malleolus and prominent left foot lateral aspect Neurological: - - Lack of normal epicritic sensation light touch is consistent with neuropathy status bilateral lower extremities Psych/Mental Status: Normal Affect, Appropriate Debridement Note Post-Debridement Measurements/Treatment WC - Nurse 2 - General Ulcer CM Notes Start: 09/12/19 10:40 Freq: Status: Active Protocol: Activity Type Activity Date Activity User E-Sign Co-Sign Detail Recorded Client Recorded Date Recorded By Document 09/12/19 11:24 LISSY [id number] 09/12/19 11:28 LISSY 09/12/19 11:24 Wound Center Nurse 2 #11 RIGHT LATERAL ANKLE -Time 11:24 -Correct Patient Yes -Correct Side, Site, Position Yes -Correct Procedure Yes -Procedure Performed Yes -Type of Procedure Debridement -Clinical Debridement Subcutaneous -Post Debridement Size (cm) - Length 2.3 -Post Debridement Size (cm) - Width 2.0 -Post Debridement Size (cm) - Depth 0.2 -Total Square Cm 4.60 -Wound/Ulcer Outcome Not Healed -Ulcer Cleansing Rinsed/ Irrigated with Saline -Foul Odor after Cleansing No -Bioengineered Tissue No -Bleeding Controlled with Pressure -Offloading Yes -Type of Offloading Surgical Shoe -Treatment Response Procedure Tolerated Well #10 left lateral foot -Time 11:24 -Correct Patient Yes -Correct Side, Site, Position Yes -Correct Procedure Yes -Procedure Performed Yes -Type of Procedure Debridement -Clinical Debridement Subcutaneous -Post Debridement Size (cm) - Length 1 -Post Debridement Size (cm) - Width 0.2 -Post Debridement Size (cm) - Depth 0.3 -Total Square Cm 0.2 -Wound/Ulcer Outcome Not Healed -Ulcer Cleansing Rinsed/ Irrigated with Saline -Foul Odor after Cleansing No -Bioengineered Tissue No -Bleeding Controlled with Pressure -Offloading Yes -Type of Offloading Surgical Shoe -Treatment Response Procedure Tolerated Well #9 left plantar -Time 11:27 -Correct Patient Yes -Correct Side, Site, Position Yes -Correct Procedure Yes -Procedure Performed Yes -Type of Procedure Debridement -Clinical Debridement Subcutaneous -Post Debridement Size (cm) - Length 2.6 -Post Debridement Size (cm) - Width 3.8 -Post Debridement Size (cm) - Depth 1 -Total Square Cm 9.88 -Wound/Ulcer Outcome Not Healed -Ulcer Cleansing Rinsed/ Irrigated with Saline -Foul Odor after Cleansing No -Bioengineered Tissue No -Bleeding Controlled with Pressure -Offloading Yes -Type of Offloading Surgical Shoe -Treatment Response Procedure Tolerated Well Pain Scale: 0-10 Numeric Is Patient Pain Free? Yes Wound debrided: lateral ankle Laterality: Right Wound Grade/Stage: grade 1 Type of Debridement: Excisional debridement Anesthesia Used: 5% Lidocaine Gel Depth: in the subcutaneous layer Percentage of wound debrided: 100 Instrument Used: #15 blade Tissue Removed: fibrous, devitalized subcutaneous tissue,biofilm, slough Severity: Fat Layer Exposed Amount of bleeding with debridement: Mild Bleeding Controlled with: Pressure Patient did not tolerate procedure well - Additional Wound Wound debrided: plantar lateral foot Laterality: Left Wound Grade/Stage: grade 1 Type of Debridement: Excisional debridement Anesthesia Used: 5% Lidocaine Gel Depth: in the subcutaneous layer Percentage of wound debrided: 100 Instrument Used: #15 blade Tissue Removed: fibrous, devitalized subcutaneous tissue,biofilm, slough Severity: Fat Layer Exposed Amount of bleeding with debridement: Mild Bleeding Controlled with: Pressure Patient tolerated procedure: Patient tolerated procedure well - Additional Wound Wound debrided: dorsal lateral foot Laterality: Left Wound Grade/Stage: grade 3 Type of Debridement: Excisional debridement Anesthesia Used: 5% Lidocaine Gel Depth: in the subcutaneous layer Percentage of wound debrided: 100 Instrument Used: #15 blade Tissue Removed: fibrous, devitalized subcutaneous tissue,biofilm, slough Severity: Fat Layer Exposed Amount of bleeding with debridement: Mild Bleeding Controlled with: Pressure Patient tolerated procedure: Patient tolerated procedure well Assessment/Plan Assessment: Diabetic ulcer of right ankle -recurrent and no signs of infection, grade 1. Diabetic ulcer plantar left foot-recurrent no signs of infection, grade 1. Ulcer plantar left foot, grade 3 treated previously medically and surgically for infection--stable today. Diabetic foot ulcer associated with type 2 diabetes mellitus. Hemoglobin A1c greater than 9.0%. varus deformity bilateral lower extremities. malnutrition suspected. delayed healing Plan: Patient was carefully examined and evaluated in detail today. Subcutaneous excisional debridement of both ulcers done as noted in clinical panel. Procedure was well-tolerated. I recommend changing the dressing daily with Vanessa or Aquacel Ag to the right ankle and plantar and dorsal lateral left foot. The patient is to change her dressing in this manner on a daily basis. Additionally advanced wound healing product application is recommended. Prior authorization will be initiated for epi-fix, amniotic cord cell derived product. This is medically necessary for limb salvage. It is noted she is already been undergoing a comprehensive wound healing plan and has delayed and nonhealing. She has suspected adequate vascular perfusion for healing. Prior authorization will be initiated. The indications, planned procedure, benefits, risk, and anticipated healing time is were discussed. She is amendable. To new immobilization offloading device to the extremity and to try to remaining nonweightbearing status. Offloading strongly recommended. Patient remains noncompliant in this. Optimal blood sugar control and increased protein intake also discussed. All questions were answered and she was advised to call with any further questions or concerns. All signs and symptoms of local and systemic infection were discussed with the patient today. We previously discussed surgical recommendations including exostectomy of the fifth metatarsal base of the left foot, advanced ulcer excision and closure techniques and potential external fixation device application. To use a cane or knee roller for ambulation assistance. Compliance was discussed. She understands it is not recommended that she failed to come to follow-up appointments for approximately 3 months. I answered all of her questions. To return to the wound healing center 1 week or call sooner she has any questions or concerns.
[2019-09-26 10:09] VITALS: BP 137/75; PULSE 99; RESP 20; TEMP 36.1; BMI 30.7
--- NOTE | 2019-09-26 13:16 | PCM.WC.PN ---
(1) Chronic ulcer of left foot with fat layer exposed Status: Chronic Code(s): L97.522 - Non-pressure chronic ulcer of other part of left foot with fat layer exposed (2) Ulcer of right lower extremity with fat layer exposed Status: Chronic Code(s): L97.912 - Non-pressure chronic ulcer of unspecified part of right lower leg with fat layer exposed (3) Type 2 diabetes mellitus with diabetic polyneuropathy Status: Chronic Code(s): E11.42 - Type 2 diabetes mellitus with diabetic polyneuropathy (4) Delayed wound healing Status: Chronic Code(s): T14.8XXD - Other injury of unspecified body region, subsequent encounter (5) Malnutrition Status: Chronic Code(s): E46 - Unspecified protein-calorie malnutrition Type of Wound Date of Service: 09/26/19 Chief Complaint: Right ankle diabetic ulcer. left foot ulcer History of Wound: This 54-year-old female returns to clinic for a right ankle ulcer and left foot ulcer. She denies redness or odor. Continues to walk on the ulcer sites at home. She has a new ulcer to her right frontal leg with an onset of the past 1-1/2 weeks. She denies trauma. This does have some drainage. Progress of Wound: Stable - Physical Exam Vital Signs Temp Pulse Resp BP 97 F L 99 20 H 137/75 H 09/26/19 10:09 09/26/19 10:09 09/26/19 10:09 09/26/19 10:09 General: Alert, Oriented x3, Cooperative, No apparent distress Extremities: No cyanosis, No Calf Tenderness, Diminished Peripheral Pulses, Edema Skin: Ulcer/ Wound - No purulence, erythema, itching, odor, or infection. The lateral right ankle and plantar left foot ulcers are demonstrating granular base with no deep probing or infections. The dorsal lateral left foot ulcer site is also fully epithelialized and healed today Wound Measurements and Assessment WC - Nurse 1 - General Ulcer Measurement Start: 09/12/19 10:40 Freq: Status: Active Protocol: Activity Type Activity Date Activity User E-Sign Co-Sign Detail Recorded Client Recorded Date Recorded By Document 09/26/19 10:09 DL [id number] 09/26/19 10:24 DL 09/26/19 10:09 Wound Center Nurse 1 [Ulcer Assessment] #12 R LowerLeg -Current Size (cm) - Length 3.7 -Current Size (cm) - Width 1.8 -Current Size (cm) - Depth 0.2 -Total Square Cm 6.66 -Photo Taken Yes -Classification - Thickness Full Thickness without Exposed Support Structure -Exudate Amt Medium -Exudate Type Serosanguineous -Wound Margin Distinct, Outline Attached -Granulation Amt Small (1-33%) -Granulation Quality Red -Necrosis Amt Large (67-100%) -Necrotic Tissue Type Adherent Slough -Structure Exposed N/A -Texture (Natacha-wound Skin Appearance) Localized Edema -Moisture (Natacha-wound Skin Appearance No Abnormality ) -Color (Natacha-wound Skin Appearance) Erythema -Temperature (Natacha-wound Skin No Abnormality Appearance) (Pt Warm) -Tenderness on Palpation (Natacha-wound No Skin Appearance) -Ulcer Cleansing Wound Cleanser -Foul Odor after Cleansing No -Anesthetic Used 5% Lidocaine Gel #11 RIGHT LATERAL ANKLE -Current Size (cm) - Length 2.5 -Current Size (cm) - Width 1.7 -Current Size (cm) - Depth 0.1 -Total Square Cm 4.25 -Photo Taken No -Exudate Amt Small -Exudate Type Serosanguineous -Wound Margin Distinct, Outline Attached -Granulation Amt Large (67-100%) -Granulation Quality Pale,Red -Necrosis Amt Small (1-33%) -Necrotic Tissue Type Adherent Slough -Structure Exposed N/A -Texture (Natacha-wound Skin Appearance) Scarring -Moisture (Natacha-wound Skin Appearance No Abnormality ) -Color (Natacha-wound Skin Appearance) No Abnormality -Temperature (Natacha-wound Skin No Abnormality Appearance) (Pt Warm) -Tenderness on Palpation (Natacha-wound No Skin Appearance) -Ulcer Cleansing Wound Cleanser -Foul Odor after Cleansing No -Anesthetic Used 5% Lidocaine Gel #10 left lateral foot -Current Size (cm) - Length 0.2 -Current Size (cm) - Width 0.5 -Current Size (cm) - Depth 0.2 -Total Square Cm 0.10 -Photo Taken No -Exudate Amt None Present -Wound Margin Thickened -Granulation Amt Small (1-33%) -Granulation Quality [place] -Necrosis Amt Small (1-33%) -Necrotic Tissue Type Adherent Slough -Structure Exposed N/A -Texture (Natacha-wound Skin Appearance) Callus,Scarring -Moisture (Natacha-wound Skin Appearance No Abnormality ) -Color (Natacha-wound Skin Appearance) No Abnormality -Temperature (Natacha-wound Skin No Abnormality Appearance) (Pt Warm) -Tenderness on Palpation (Natacha-wound No Skin Appearance) -Ulcer Cleansing Wound Cleanser -Foul Odor after Cleansing No -Anesthetic Used 5% Lidocaine Gel #9 left plantar -Current Size (cm) - Length 2.8 -Current Size (cm) - Width 3 -Current Size (cm) - Depth 0.3 -Total Square Cm 8.4 -Photo Taken No -Exudate Amt Medium -Exudate Type Serosanguineous -Wound Margin Thickened -Granulation Amt Medium (34-66%) -Granulation Quality Red -Necrosis Amt Medium (34-66%) -Necrotic Tissue Type Adherent Slough -Structure Exposed N/A -Texture (Natacha-wound Skin Appearance) Scarring -Moisture (Natacha-wound Skin Appearance No Abnormality ) -Color (Natacha-wound Skin Appearance) No Abnormality -Temperature (Natacha-wound Skin No Abnormality Appearance) (Pt Warm) -Tenderness on Palpation (Natacha-wound No Skin Appearance) -Ulcer Cleansing Wound Cleanser -Foul Odor after Cleansing No -Anesthetic Used 5% Lidocaine Gel WC - Nurse 2 - General Ulcer CM Notes Start: 09/12/19 10:40 Freq: Status: Active Protocol: Activity Type Activity Date Activity User E-Sign Co-Sign Detail Recorded Client Recorded Date Recorded By Document 09/26/19 10:46 LISSY [id number] 09/26/19 10:57 LISSY 09/26/19 10:46 Wound Center Nurse 2 [Procedure/Treatment] #12 R LowerLeg -Time 10:47 -Correct Patient Yes -Correct Side, Site, Position Yes -Correct Procedure Yes -Procedure Performed Yes -Type of Procedure Debridement -Clinical Debridement Subcutaneous -Post Debridement Size (cm) - Length 3.8 -Post Debridement Size (cm) - Width 1.8 -Post Debridement Size (cm) - Depth 0.2 -Total Square Cm 6.84 -Wound/Ulcer Outcome Not Healed -Ulcer Cleansing Rinsed/ Irrigated with Saline -Foul Odor after Cleansing No -Bioengineered Tissue No -Type of bioengineered Tissue EPIFIX -Expiration Date 06/10/24 -Product Lot Number [id number] -Percent Used 100 -Saline Lot Number [id number] -Bleeding Controlled with Pressure -Offloading Yes -Type of Offloading Surgical Shoe -Treatment Response Procedure Tolerated Well #11 RIGHT LATERAL ANKLE -Time 10:53 -Correct Patient Yes -Correct Side, Site, Position Yes -Correct Procedure Yes -Procedure Performed Yes -Type of Procedure Debridement -Clinical Debridement Subcutaneous -Post Debridement Size (cm) - Length 2.5 -Post Debridement Size (cm) - Width 1.8 -Post Debridement Size (cm) - Depth 0.1 -Total Square Cm 4.50 -Wound/Ulcer Outcome Not Healed -Ulcer Cleansing Rinsed/ Irrigated with Saline -Foul Odor after Cleansing No -Bioengineered Tissue Yes -Type of bioengineered Tissue EPIFIX -Expiration Date 06/10/24 -Product Lot Number [id number] -Percent Used 100 -Saline Lot Number [id number] -Bleeding Controlled with Pressure -Offloading No -Treatment Response Procedure Tolerated Well #10 left lateral foot -Time 10:56 -Correct Patient No -Correct Side, Site, Position No -Correct Procedure No -Procedure Performed No -Post Debridement Size (cm) - Length 0 -Post Debridement Size (cm) - Width 0 -Post Debridement Size (cm) - Depth 0 -Total Square Cm 0 -Wound/Ulcer Outcome Healed- Epithelialized -Ulcer Cleansing Rinsed/ Irrigated with Saline -Foul Odor after Cleansing No -Bioengineered Tissue No -Bleeding Controlled with Pressure -Offloading Yes -Type of Offloading Surgical Shoe -Treatment Response Procedure Tolerated Well #9 left plantar -Time 11:08 -Correct Patient Yes -Correct Side, Site, Position Yes -Correct Procedure Yes -Procedure Performed Yes -Type of Procedure Debridement -Clinical Debridement Subcutaneous -Post Debridement Size (cm) - Length 2.8 -Post Debridement Size (cm) - Width 3.1 -Post Debridement Size (cm) - Depth 0.3 -Total Square Cm 8.68 -Wound/Ulcer Outcome Not Healed -Bioengineered Tissue Yes -Type of bioengineered Tissue EPIFIX -Expiration Date 06/10/24 -Product Lot Number [id number] -Percent Used 100 -Saline Lot Number [id number] -Bleeding Controlled with Pressure -Offloading Yes -Type of Offloading Surgical Shoe -Treatment Response Procedure Tolerated Well [See Physician Procedure note for Specifics] Pain Scale: 0-10 Numeric [Pain] -Is Patient Pain Free? Yes Musculoskeletal: No Tenderness to Palpation of Joints or Extremities, Muscle Wasting Neurological: - - Lack of normal epicritic sensation consistent with neuropathy Psych/Mental Status: Normal Affect, Appropriate Debridement Note Post-Debridement Measurements/Treatment WC - Nurse 2 - General Ulcer CM Notes Start: 09/12/19 10:40 Freq: Status: Active Protocol: Activity Type Activity Date Activity User E-Sign Co-Sign Detail Recorded Client Recorded Date Recorded By Document 09/12/19 11:24 [id number] 09/12/19 11:28 Document 09/26/19 10:46 [id number] 09/26/19 10:57 09/12/19 09/26/19 11:24 10:46 Wound Center Nurse 2 #12 R LowerLeg -Time 10:47 -Correct Patient Yes -Correct Side, Site, Position Yes -Correct Procedure Yes -Procedure Performed Yes -Type of Procedure Debridement -Clinical Debridement Subcutaneous -Post Debridement Size (cm) - Length 3.8 -Post Debridement Size (cm) - Width 1.8 -Post Debridement Size (cm) - Depth 0.2 -Total Square Cm 6.84 -Wound/Ulcer Outcome Not Healed -Ulcer Cleansing Rinsed/ Irrigated with Saline -Foul Odor after Cleansing No -Bioengineered Tissue No -Type of bioengineered Tissue EPIFIX -Expiration Date 06/10/24 -Product Lot Number [id number] -Percent Used 100 -Saline Lot Number [id number] -Bleeding Controlled with Pressure -Offloading Yes -Type of Offloading Surgical Shoe -Treatment Response Procedure Tolerated Well #11 RIGHT LATERAL ANKLE -Time 11:24 10:53 -Correct Patient Yes Yes -Correct Side, Site, Position Yes Yes -Correct Procedure Yes Yes -Procedure Performed Yes Yes -Type of Procedure Debridement Debridement -Clinical Debridement Subcutaneous Subcutaneous -Post Debridement Size (cm) - Length 2.3 2.5 -Post Debridement Size (cm) - Width 2.0 1.8 -Post Debridement Size (cm) - Depth 0.2 0.1 -Total Square Cm 4.60 4.50 -Wound/Ulcer Outcome Not Healed Not Healed -Ulcer Cleansing Rinsed/ Rinsed/ Irrigated with Irrigated with Saline Saline -Foul Odor after Cleansing No No -Bioengineered Tissue No Yes -Type of bioengineered Tissue EPIFIX -Expiration Date 06/10/24 -Product Lot Number [id number] -Percent Used 100 -Saline Lot Number [id number] -Bleeding Controlled with Pressure Pressure -Offloading Yes No -Type of Offloading Surgical Shoe -Treatment Response Procedure Procedure Tolerated Well Tolerated Well #10 left lateral foot -Time 11:24 10:56 -Correct Patient Yes No -Correct Side, Site, Position Yes No -Correct Procedure Yes No -Procedure Performed Yes No -Type of Procedure Debridement -Clinical Debridement Subcutaneous -Post Debridement Size (cm) - Length 1 0 -Post Debridement Size (cm) - Width 0.2 0 -Post Debridement Size (cm) - Depth 0.3 0 -Total Square Cm 0.2 0 -Wound/Ulcer Outcome Not Healed Healed- Epithelialized -Ulcer Cleansing Rinsed/ Rinsed/ Irrigated with Irrigated with Saline Saline -Foul Odor after Cleansing No No -Bioengineered Tissue No No -Bleeding Controlled with Pressure Pressure -Offloading Yes Yes -Type of Offloading Surgical Shoe Surgical Shoe -Treatment Response Procedure Procedure Tolerated Well Tolerated Well #9 left plantar -Time 11:27 11:08 -Correct Patient Yes Yes -Correct Side, Site, Position Yes Yes -Correct Procedure Yes Yes -Procedure Performed Yes Yes -Type of Procedure Debridement Debridement -Clinical Debridement Subcutaneous Subcutaneous -Post Debridement Size (cm) - Length 2.6 2.8 -Post Debridement Size (cm) - Width 3.8 3.1 -Post Debridement Size (cm) - Depth 1 0.3 -Total Square Cm 9.88 8.68 -Wound/Ulcer Outcome Not Healed Not Healed -Ulcer Cleansing Rinsed/ Irrigated with Saline -Foul Odor after Cleansing No -Bioengineered Tissue No Yes -Type of bioengineered Tissue EPIFIX -Expiration Date 06/10/24 -Product Lot Number [id number] -Percent Used 100 -Saline Lot Number [id number] -Bleeding Controlled with Pressure Pressure -Offloading Yes Yes -Type of Offloading Surgical Shoe Surgical Shoe -Treatment Response Procedure Procedure Tolerated Well Tolerated Well Pain Scale: 0-10 Numeric Is Patient Pain Free? Yes Yes Wound debrided: lateral ankle and lower anterior leg Laterality: Right Wound Grade/Stage: grade 1 Type of Debridement: Excisional debridement Anesthesia Used: 5% Lidocaine Gel Depth: in the subcutaneous layer Percentage of wound debrided: 100 Instrument Used: #15 blade Tissue Removed: fibrous, devitalized subcutaneous, biofilm, slough Severity: Fat Layer Exposed Amount of bleeding with debridement: Mild Bleeding Controlled with: Pressure Patient tolerated procedure well - Additional Wound Wound debrided: plantar lateral foot Laterality: Left Wound Grade/Stage: grade 1 Type of Debridement: Excisional debridement Anesthesia Used: 5% Lidocaine Gel Depth: in the subcutaneous layer Percentage of wound debrided: 100 Instrument Used: #15 blade Tissue Removed: fibrous, devitalized subcutaneous, biofilm, slough Severity: Fat Layer Exposed Amount of bleeding with debridement: Mild Bleeding Controlled with: Pressure Patient tolerated procedure: Patient tolerated procedure well Assessment/Plan Assessment: Diabetic ulcer of right ankle -recurrent and no signs of infection, grade 1. Diabetic ulcer plantar left foot-recurrent no signs of infection, grade 1. Ulcer plantar left foot, grade 3 treated previously medically and surgically for infection--healed today. New anterior right leg ulcer-no local signs of infection, grade 1. Diabetic foot ulcer associated with type 2 diabetes mellitus. Hemoglobin A1c greater than 9.0%. varus deformity bilateral lower extremities. malnutrition suspected. delayed healing Plan: Patient was carefully examined and evaluated in detail today. Subcutaneous excisional debridement of both ulcers done as noted in clinical panel. Procedure was well-tolerated. I recommend changing the dressing daily with Vanessa or Aquacel Ag to the right ankle, right leg, and plantar left foot. The patient is to change her dressing in this manner on a daily basis. Additionally advanced wound healing product application is recommended. Prior authorization will be initiated for epi-fix, amniotic cord cell derived product. This is medically necessary for limb salvage. It is noted she is already been undergoing a comprehensive wound healing plan and has delayed and nonhealing. She has suspected adequate vascular perfusion for healing. Prior authorization will be initiated. The indications, planned procedure, benefits, risk, and anticipated healing time is were discussed. She is amendable. To new immobilization offloading device to the extremity and to try to remaining nonweightbearing status. Offloading strongly recommended. Patient remains noncompliant in this. Optimal blood sugar control and increased protein intake also discussed. All questions were answered and she was advised to call with any further questions or concerns. All signs and symptoms of local and systemic infection were discussed with the patient today. We previously discussed surgical recommendations including exostectomy of the fifth metatarsal base of the left foot, advanced ulcer excision and closure techniques and potential external fixation device application. To use a cane or knee roller for ambulation assistance. Compliance was discussed. She understands it is not recommended that she failed to come to follow-up appointments for approximately 3 months. We previously discussed hyperbaric therapy oxygen options which would require improved attendance to make the daily visits. It is noted recently her prior grade 3 ulcer has healed and now she only has grade 1 ulcers which does not make her candidate at this time. I answered all of her questions. To return to the wound healing center 2 week or call sooner she has any questions or concerns.
== END 2019-10-09 23:59 ==
LOC: WC 14:45
PROVIDERS: Family Provider Family Medicine; PCP Family Medicine; Visit Provider Podiatrist
DX: E11.621 Type 2 diabetes mellitus with foot ulcer (principal); E11.42 Type 2 diabetes mellitus with diabetic polyneuropathy; L97.312 Non-pressure chronic ulcer of right ankle with fat layer exposed; E11.622 Type 2 diabetes mellitus with other skin ulcer; L97.522 Non-pressure chronic ulcer of other part of left foot with fat layer exposed; M21.10 Varus deformity, not elsewhere classified, unspecified site; Z91.19 Patient's noncompliance with other medical treatment and regimen
CPT/HCPCS: 11042; 15271; 15275; 99213; Q4186; G0463

== ENCOUNTER → 2019-11-29 12:28 | Outpatient (CLI) | payer MEDICARE, MEDICAID, SELFPAY ==
[2018-09-21 13:23] VITALS: BMI 29.3
[2019-11-28 09:42] VITALS: BMI 35.9
[2019-11-29 14:37] LABS: Amphetamine Urine VISTA NEGATIVE (<1000 ng/mL); Barbiturate Urine VISTA NEGATIVE (< 200 ng/mL); Benzodiazepine Urine VISTA NEGATIVE (< 200 ng/mL); Cocaine Urine VISTA NEGATIVE (< 300 ng/mL); Ecstacy Urine VISTA NEGATIVE (< 500 ng/mL); Methadone Urine VISTA NEGATIVE (< 300 ng/mL); PCP Urine VISTA NEGATIVE (< 25 ng/mL); THC Urine VISTA NEGATIVE (< 50 ng/mL); Vista UDS pH Range 6
== END ==
PROVIDERS: PCP Family Medicine; Visit Provider Anesthesiology Pain Medicine
DX: F11.20 Opioid dependence, uncomplicated (principal)
CPT/HCPCS: 80307

== ENCOUNTER 2019-12-05 10:15 | Outpatient (RCR) | payer MEDICARE, MEDICAID, SELFPAY ==
[2018-09-21 13:23] VITALS: BMI 29.3
[2019-10-10 01:00] VITALS: BMI 35.9
[2019-11-21 10:19] VITALS: BP 129/65; PULSE 91; RESP 16; TEMP 36.1; BMI 35.9
[2019-11-21 10:36] LABS: Bedside Glucose 197 mg/dL (70-110)
--- NOTE | 2019-11-21 13:01 | PN.PCM_ITS ---
(1) Type 2 diabetes mellitus with diabetic polyneuropathy Status: Chronic Current Visit: Yes Code(s): E11.42 - Type 2 diabetes mellitus with diabetic polyneuropathy (2) Delayed wound healing Status: Chronic Current Visit: Yes Code(s): T14.8XXD - Other injury of unspecified body region, subsequent encounter (3) Malnutrition Status: Chronic Current Visit: Yes Code(s): E46 - Unspecified protein- calorie malnutrition (4) Chronic ulcer of left foot with fat layer exposed Status: Chronic Current Visit: Yes Code(s): L97.522 - Non-pressure chronic ulcer of other part of left foot with fat layer exposed (5) Ulcer of right lower extremity with fat layer exposed Status: Chronic Current Visit: Yes Code(s): L97.912 - Non-pressure chronic ulcer of unspecified part of right lower leg with fat layer exposed (6) Delayed wound healing Status: Chronic Current Visit: Yes Code(s): T14.8XXD - Other injury of unspecified body region, subsequent encounter (7) Non-compliance Status: Chronic Current Visit: Yes Code(s): Z91.19 - Patient's noncompliance with other medical treatment and regimen Type of Wound Date of Service: 11/21/19 Chief Complaint: Right ankle diabetic ulcer. left foot ulcer History of Wound: This 54-year-old female returns to clinic for a right ankle ulcer and left foot ulcer. She denies redness or odor. Continues to walk on the ulcer sites at home. She denies trauma. This does have some drainage. She denies recent illness. She relates she is not followed up for an extended period of time for an unknown reason. She relates she kept forgetting to call back and relates she is very tired. Her glucose level upon presentation to the clinic today is about 180 mg/dL. She denies fever, chill, nausea, vomiting, loss of appetite. She relates she just saw her primary care physician at the [facility] within the last week and had updated lab work including her hemoglobin A1c. She is unable to check her blood sugar levels at home because she still did not get the correct test strips. She is planning to travel out of the country on [place] 17 and does not know when she will return. Progress of Wound: Stable - Physical Exam Vital Signs Temp Pulse Resp BP 97.0 F L 91 16 129/65 H 11/21/19 10:19 11/21/19 10:19 11/21/19 10:19 11/21/19 10:19 General: Alert, Oriented x3, Cooperative, No apparent distress Extremities: No cyanosis, Capillary Refill Less than 3 Seconds, No Calf Tenderness, Diminished Peripheral Pulses, Edema Skin: Ulcer/ Wound - No purulence, erythema, streaking, odor, infection. There is no left foot dorsal probing or ulcer. The plantar left foot ulcer and lateral right ulcer have a granular base with no exposed bone or necrosis. Her skin in general is hairless and atrophic to bilateral lower extremities Wound Measurements and Assessment WC - Nurse 1 - General Ulcer Measurement Start: 11/21/19 10:19 Freq: Status: Active Protocol: Activity Type Activity Date Activity User E-Sign Co-Sign Detail Recorded Client Recorded Date Recorded By Document 11/21/19 10: [id number] 11/21/19 10:28 11/21/19 10:19 Wound Center Nurse 1 [Ulcer Assessment] #14 right lat ankle -Combined with other wound No -Current Size (cm) - Length 2.2 -Current Size (cm) - Width 1.6 -Current Size (cm) - Depth 0.2 -Total Square Cm 3.52 -Date of Last Picture (Recall this 11/21/19 field) -Photo Taken Yes -Epithelialization None Present -Tunneling No -Undermining/Tunneling No -Circular Undermining No -Exudate Amt Small -Exudate Type Serosanguineous -Wound Margin Distinct, Outline Attached -Granulation Amt Large (67-100%) -Granulation Quality [place] -Slough/Fibrin Yes -Necrosis Amt None Present (0 %) -Necrotic Tissue Type Adherent Slough -Structure Exposed N/A -Texture (Natacha-wound Skin Appearance) No Abnormality, Assessed -Moisture (Natacha-wound Skin Appearance No Abnormality, ) Assessed -Color (Natacha-wound Skin Appearance) No Abnormality, Assessed -Temperature (Natacha-wound Skin No Abnormality Appearance) (Pt Warm) -Tenderness on Palpation (Natacha-wound No Skin Appearance) -Ulcer Cleansing Rinsed/ Irrigated with Saline -Foul Odor after Cleansing No -Anesthetic Used 4% Lidocaine Solution #13 Left plantar -Combined with other wound No -Current Size (cm) - Length 2.8 -Current Size (cm) - Width 2.8 -Current Size (cm) - Depth 0.2 -Total Square Cm 7.84 -Date of Last Picture (Recall this 11/21/19 field) -Photo Taken Yes -Epithelialization None Present -Tunneling No -Undermining/Tunneling No -Circular Undermining No -Exudate Amt Small -Exudate Type Serosanguineous -Wound Margin Distinct, Outline Attached -Granulation Amt Large (67-100%) -Granulation Quality Red -Slough/Fibrin Yes -Necrosis Amt None Present (0 %) -Necrotic Tissue Type Adherent Slough -Structure Exposed N/A -Texture (Natacha-wound Skin Appearance) Callus -Moisture (Natacha-wound Skin Appearance No Abnormality, ) Assessed -Color (Natacha-wound Skin Appearance) No Abnormality, Assessed -Temperature (Natacha-wound Skin No Abnormality Appearance) (Pt Warm) -Tenderness on Palpation (Natacha-wound No Skin Appearance) -Ulcer Cleansing Rinsed/ Irrigated with Saline -Foul Odor after Cleansing No -Anesthetic Used 4% Lidocaine Solution [Edema Assessment] -Lower Limb Edema Present NA WC - Nurse 2 - General Ulcer CM Notes Start: 11/21/19 10:19 Freq: Status: Active Protocol: Activity Type Activity Date Activity User E-Sign Co-Sign Detail Recorded Client Recorded Date Recorded By Document 11/21/19 10:52 LISSY [id number] 11/21/19 11:00 LISSY 11/21/19 10:52 Wound Center Nurse 2 [Procedure/Treatment] #14 right lat ankle -Time 10:54 -Correct Patient Yes -Correct Side, Site, Position Yes -Correct Procedure Yes -Procedure Performed Yes -Type of Procedure Debridement -Clinical Debridement Subcutaneous -Post Debridement Size (cm) - Length 2.3 -Post Debridement Size (cm) - Width 1.7 -Post Debridement Size (cm) - Depth 0.2 -Total Square Cm 3.91 -Wound/Ulcer Outcome Not Healed -Ulcer Cleansing Rinsed/ Irrigated with Saline -Foul Odor after Cleansing No -Bioengineered Tissue No -Bleeding Controlled with Pressure -Offloading Yes -Type of Offloading Camwalker -Treatment Response Procedure Tolerated Well #13 Left plantar -Time 10:54 -Correct Patient Yes -Correct Side, Site, Position Yes -Correct Procedure Yes -Procedure Performed Yes -Type of Procedure Debridement -Clinical Debridement Subcutaneous -Post Debridement Size (cm) - Length 2.8 -Post Debridement Size (cm) - Width 2.9 -Post Debridement Size (cm) - Depth 0.2 -Total Square Cm 8.12 -Wound/Ulcer Outcome Not Healed -Ulcer Cleansing Rinsed/ Irrigated with Saline -Foul Odor after Cleansing No -Bioengineered Tissue No -Bleeding Controlled with Pressure -Offloading Yes -Type of Offloading Camwalker -Treatment Response Procedure Tolerated Well [See Physician Procedure note for Specifics] Pain Scale: 0-10 Numeric [Pain] -Is Patient Pain Free? Yes Musculoskeletal: No Tenderness to Palpation of Joints or Extremities, Muscle Wasting, - - Varus attitude bilateral foot upon ankle with prominent plantar lateral foot margin Neurological: - - Lack of epicritic sensation light touch is consistent with neuropathy status Psych/Mental Status: Normal Affect, Appropriate Debridement Note Post-Debridement Measurements/Treatment WC - Nurse 2 - General Ulcer CM Notes Start: 11/21/19 10:19 Freq: Status: Active Protocol: Activity Type Activity Date Activity User E-Sign Co-Sign Detail Recorded Client Recorded Date Recorded By Document 11/21/19 10:52 LISSY [id number] 11/21/19 11:00 LISSY 11/21/19 10:52 Wound Center Nurse 2 #14 right lat ankle -Time 10:54 -Correct Patient Yes -Correct Side, Site, Position Yes -Correct Procedure Yes -Procedure Performed Yes -Type of Procedure Debridement -Clinical Debridement Subcutaneous -Post Debridement Size (cm) - Length 2.3 -Post Debridement Size (cm) - Width 1.7 -Post Debridement Size (cm) - Depth 0.2 -Total Square Cm 3.91 -Wound/Ulcer Outcome Not Healed -Ulcer Cleansing Rinsed/ Irrigated with Saline -Foul Odor after Cleansing No -Bioengineered Tissue No -Bleeding Controlled with Pressure -Offloading Yes -Type of Offloading Camwalker -Treatment Response Procedure Tolerated Well #13 Left plantar -Time 10:54 -Correct Patient Yes -Correct Side, Site, Position Yes -Correct Procedure Yes -Procedure Performed Yes -Type of Procedure Debridement -Clinical Debridement Subcutaneous -Post Debridement Size (cm) - Length 2.8 -Post Debridement Size (cm) - Width 2.9 -Post Debridement Size (cm) - Depth 0.2 -Total Square Cm 8.12 -Wound/Ulcer Outcome Not Healed -Ulcer Cleansing Rinsed/ Irrigated with Saline -Foul Odor after Cleansing No -Bioengineered Tissue No -Bleeding Controlled with Pressure -Offloading Yes -Type of Offloading Camwalker -Treatment Response Procedure Tolerated Well Pain Scale: 0-10 Numeric Is Patient Pain Free? Yes Wound debrided: plantar lateral foot Laterality: Left Wound Grade/Stage: grade 1 Type of Debridement: Excisional debridement Anesthesia Used: 5% Lidocaine Gel Depth: in the subcutaneous layer Percentage of wound debrided: 100 Instrument Used: #15 blade Tissue Removed: Fibrous, devitalized subcutaneous, biofilm, slough Severity: Fat Layer Exposed Amount of bleeding with debridement: Mild Bleeding Controlled with: Pressure Patient tolerated procedure well - Additional Wound Wound debrided: lateral ankle Laterality: Right Wound Grade/Stage: grade 1 Type of Debridement: Excisional debridement Anesthesia Used: 5% Lidocaine Gel Depth: in the subcutaneous layer Percentage of wound debrided: 100 Instrument Used: #15 blade Tissue Removed: Fibrous, devitalized subcutaneous, biofilm, slough Severity: Fat Layer Exposed Amount of bleeding with debridement: Mild Bleeding Controlled with: Pressure Patient tolerated procedure: Patient tolerated procedure well Assessment/Plan Active Problems (This Medical Record has been edited. Action required.) Type 2 diabetes mellitus with diabetic polyneuropathy (Chronic) Delayed wound healing (Chronic) Malnutrition (Chronic) Chronic ulcer of left foot with fat layer exposed (Chronic) Non-compliance (Chronic) Delayed wound healing (Chronic) Ulcer of right lower extremity with fat layer exposed (Chronic) Assessment: Diabetic ulcer of right ankle -recurrent and no signs of infection, grade 1. Diabetic ulcer plantar left foot-recurrent no signs of infection, grade 1. Diabetic foot ulcer associated with type 2 diabetes mellitus. Hemoglobin A1c greater than 12, updated lab work pending. varus deformity bilateral lower extremities. malnutrition suspected. delayed healing Plan: Patient was carefully examined and evaluated in detail today. Subcutaneous excisional debridement of both ulcers done as noted in clinical panel. Procedure was well-tolerated. I recommend changing the dressing daily with Aquacel Ag to the right ankle and plantar left foot. The patient is to change her dressing in this manner on a daily basis. It is noted she is already been undergoing a comprehensive wound healing plan and has delayed and nonhealing. She has suspected adequate vascular perfusion for healing per her recent noninvasive vascular studies within the past year. She also appears to be stabilized from an infection standpoint and has had prior bone biopsies, wound culture, and intervention with infectious disease. I do not recommend any antibiotics today. Her lab work was reviewed within the past 3 months. I do recommend updating her hemoglobin A1c level; her last one on file here was April 2019. She relates she just had this done at the [facility] and this medical record will be requested. To new immobilization offloading device to the extremity and to try to remaining nonweightbearing status. Offloading strongly recommended. Patient remains noncompliant in this. [place] liners were applied to the left surgical shoe today to create a pocket to offload her plantar foot ulcer. She admits she does not offload at home and I advised her to take some accountability for this part of her healing plan. Optimal blood sugar control and increased protein intake also discussed. All questions were answered and she was advised to call with any further questions or concerns. All signs and symptoms of local and systemic infection were discussed with the patient today. We previously discussed surgical recommendations including exostectomy of the fifth metatarsal base of the left foot, advanced ulcer excision and closure techniques and potential external fixation device application. To use a cane or knee roller for ambulation assistance. Compliance was discussed. She understands it is not recommended that she failed to come to follow-up appointments for several months. I answered all of her questions. To return to the wound healing center 1 week or call sooner she has any questions or concerns. She was advised to follow-up promptly with her medical doctor in regards to her ongoing fatigue.
[2019-11-28 09:42] VITALS: BP 162/87; PULSE 97; RESP 16; TEMP 35.7; BMI 35.9
--- NOTE | 2019-11-28 16:53 | PCM.WC.PN ---
(1) Type 2 diabetes mellitus with diabetic polyneuropathy Status: Chronic Current Visit: Yes Code(s): E11.42 - Type 2 diabetes mellitus with diabetic polyneuropathy (2) Delayed wound healing Status: Chronic Current Visit: Yes Code(s): T14.8XXD - Other injury of unspecified body region, subsequent encounter (3) Malnutrition Status: Chronic Current Visit: Yes Code(s): E46 - Unspecified protein-calorie malnutrition (4) Chronic ulcer of left foot with fat layer exposed Status: Chronic Current Visit: Yes Code(s): L97.522 - Non-pressure chronic ulcer of other part of left foot with fat layer exposed (5) Ulcer of right lower extremity with fat layer exposed Status: Chronic Current Visit: Yes Code(s): L97.912 - Non-pressure chronic ulcer of unspecified part of right lower leg with fat layer exposed (6) Delayed wound healing Status: Chronic Current Visit: Yes Code(s): T14.8XXD - Other injury of unspecified body region, subsequent encounter (7) Non-compliance Status: Chronic Current Visit: Yes Code(s): Z91.19 - Patient's noncompliance with other medical treatment and regimen Type of Wound Date of Service: 11/28/19 Chief Complaint: Right ankle diabetic ulcer. left foot ulcer History of Wound: This 54-year-old female returns to clinic for a right ankle ulcer and left foot ulcer. She denies redness or odor. Continues to walk on the ulcer sites at home. She denies trauma. This does have some drainage. She denies recent illness. She relates she is not followed up for an extended period of time for an unknown reason. She relates she kept forgetting to call back and relates she is very tired. Her glucose level upon presentation to the clinic today is about 180 mg/dL. She denies fever, chill, nausea, vomiting, loss of appetite. She relates she just saw her primary care physician at the [facility] within the last week and had updated lab work including her hemoglobin A1c. She is unable to check her blood sugar levels at home because she still did not get the correct test strips. She is planning to travel out of the country on [place] 17 and does not know when she will return. She relates her cam walkers at home but she does not wear them. Progress of Wound: Stable - Physical Exam Vital Signs Temp Pulse Resp BP 96.2 F L 97 16 162/87 H 11/28/19 09:42 11/28/19 09:42 11/28/19 09:42 11/28/19 09:42 General: Alert, Oriented x3, Cooperative, No apparent distress Extremities: No cyanosis, Capillary Refill Less than 3 Seconds, No Calf Tenderness, Diminished Peripheral Pulses, Edema Skin: Ulcer/ Wound - No purulence, erythema, streaking, odor, infection. No deep tissue exposure or necrosis. Adjacent skin is hairless and atrophic Wound Measurements and Assessment WC - Nurse 1 - General Ulcer Measurement Start: 11/21/19 10:19 Freq: Status: Active Protocol: Activity Type Activity Date Activity User E-Sign Co-Sign Detail Recorded Client Recorded Date Recorded By Document 11/28/19 09:42 [facility] [id number] 11/28/19 09:52 [facility] 11/28/19 09:42 Wound Center Nurse 1 [Ulcer Assessment] #14 right lat ankle -Combined with other wound No -Current Size (cm) - Length 2.1 -Current Size (cm) - Width 1.4 -Current Size (cm) - Depth 0.2 -Total Square Cm 2.94 -Photo Taken No -Epithelialization None Present -Tunneling No -Undermining/Tunneling No -Circular Undermining No -Exudate Amt Small -Exudate Type Serosanguineous -Wound Margin Thickened -Granulation Amt Large (67-100%) -Granulation Quality [place] -Slough/Fibrin Yes -Necrosis Amt Small (1-33%) -Necrotic Tissue Type Adherent Slough -Texture ([place]-wound Skin Appearance) Assessed, Scarring -Moisture ([place]-wound Skin Appearance Assessed ) -Color ([place]-wound Skin Appearance) Assessed, Erythema -Temperature ([place]-wound Skin No Abnormality Appearance) (Pt Warm) -Tenderness on Palpation ([place]-wound No Skin Appearance) -Ulcer Cleansing soapy water -Foul Odor after Cleansing No -Anesthetic Used 4% Lidocaine Solution #13 Left plantar -Combined with other wound No -Current Size (cm) - Length 2.5 -Current Size (cm) - Width 2.8 -Current Size (cm) - Depth 0.1 -Total Square Cm 7.00 -Photo Taken No -Epithelialization None Present -Tunneling No -Undermining/Tunneling No -Circular Undermining No -Exudate Amt Medium -Exudate Type Serosanguineous -Wound Margin Distinct, Outline Attached -Granulation Amt Large (67-100%) -Granulation Quality Hyper- granulation,Red -Slough/Fibrin Yes -Necrosis Amt Small (1-33%) -Necrotic Tissue Type Adherent Slough -Texture ([place]-wound Skin Appearance) Assessed, Scarring -Moisture ([place]-wound Skin Appearance Assessed ) -Color ([place]-wound Skin Appearance) Assessed -Temperature ([place]-wound Skin No Abnormality Appearance) (Pt Warm) -Tenderness on Palpation ([place]-wound No Skin Appearance) -Ulcer Cleansing soapy water -Foul Odor after Cleansing No -Anesthetic Used 4% Lidocaine Solution WC - Nurse 2 - General Ulcer CM Notes Start: 11/21/19 10:19 Freq: Status: Active Protocol: Activity Type Activity Date Activity User E-Sign Co-Sign Detail Recorded Client Recorded Date Recorded By Document 11/28/19 10:04 [email or web address] [id number] 11/28/19 10:08 [facility] 11/28/19 10:04 Wound Center Nurse 2 [Procedure/Treatment] #14 right lat ankle -Time 10:05 -Correct Patient Yes -Correct Side, Site, Position Yes -Correct Procedure Yes -Procedure Performed Yes -Type of Procedure Debridement -Clinical Debridement Subcutaneous -Post Debridement Size (cm) - Length 2.2 -Post Debridement Size (cm) - Width 1.5 -Post Debridement Size (cm) - Depth 0.2 -Total Square Cm 3.30 -Wound/Ulcer Outcome Not Healed -Ulcer Cleansing Rinsed/ Irrigated with Saline -Foul Odor after Cleansing No -Bioengineered Tissue No -Bleeding Controlled with Pressure -Offloading Yes -Type of Offloading Surgical Shoe -Treatment Response Procedure Tolerated Well #13 Left plantar -Time 10:05 -Correct Patient Yes -Correct Side, Site, Position Yes -Correct Procedure Yes -Procedure Performed Yes -Type of Procedure Debridement -Clinical Debridement Subcutaneous -Post Debridement Size (cm) - Length 2.5 -Post Debridement Size (cm) - Width 2.9 -Post Debridement Size (cm) - Depth 0.1 -Total Square Cm 7.25 -Wound/Ulcer Outcome Not Healed -Ulcer Cleansing Rinsed/ Irrigated with Saline -Foul Odor after Cleansing No -Bioengineered Tissue No -Bleeding Controlled with Pressure -Offloading Yes -Type of Offloading Surgical Shoe -Treatment Response Procedure Tolerated Well [See Physician Procedure note for Specifics] Pain Scale: 0-10 Numeric [Pain] -Is Patient Pain Free? Yes Musculoskeletal: Muscle Wasting Neurological: - - Lack of normal epicritic sensation consistent with neuropathy Psych/Mental Status: Normal Affect, Appropriate Debridement Note Post-Debridement Measurements/Treatment WC - Nurse 2 - General Ulcer CM Notes Start: 11/21/19 10:19 Freq: Status: Active Protocol: Activity Type Activity Date Activity User E-Sign Co-Sign Detail Recorded Client Recorded Date Recorded By Document 11/21/19 10:52 [id number] 11/21/19 11:00 Document 11/28/19 10:04 [id number] 11/28/19 10:08 11/21/19 11/28/19 10:52 10:04 Wound Center Nurse 2 #14 right lat ankle -Time 10:54 10:05 -Correct Patient Yes Yes -Correct Side, Site, Position Yes Yes -Correct Procedure Yes Yes -Procedure Performed Yes Yes -Type of Procedure Debridement Debridement -Clinical Debridement Subcutaneous Subcutaneous -Post Debridement Size (cm) - Length 2.3 2.2 -Post Debridement Size (cm) - Width 1.7 1.5 -Post Debridement Size (cm) - Depth 0.2 0.2 -Total Square Cm 3.91 3.30 -Wound/Ulcer Outcome Not Healed Not Healed -Ulcer Cleansing Rinsed/ Rinsed/ Irrigated with Irrigated with Saline Saline -Foul Odor after Cleansing No No -Bioengineered Tissue No No -Bleeding Controlled with Pressure Pressure -Offloading Yes Yes -Type of Offloading Camwalker Surgical Shoe -Treatment Response Procedure Procedure Tolerated Well Tolerated Well #13 Left plantar -Time 10:54 10:05 -Correct Patient Yes Yes -Correct Side, Site, Position Yes Yes -Correct Procedure Yes Yes -Procedure Performed Yes Yes -Type of Procedure Debridement Debridement -Clinical Debridement Subcutaneous Subcutaneous -Post Debridement Size (cm) - Length 2.8 2.5 -Post Debridement Size (cm) - Width 2.9 2.9 -Post Debridement Size (cm) - Depth 0.2 0.1 -Total Square Cm 8.12 7.25 -Wound/Ulcer Outcome Not Healed Not Healed -Ulcer Cleansing Rinsed/ Rinsed/ Irrigated with Irrigated with Saline Saline -Foul Odor after Cleansing No No -Bioengineered Tissue No No -Bleeding Controlled with Pressure Pressure -Offloading Yes Yes -Type of Offloading Camwalker Surgical Shoe -Treatment Response Procedure Procedure Tolerated Well Tolerated Well Pain Scale: 0-10 Numeric Is Patient Pain Free? Yes Yes Wound debrided: lateral ankle Laterality: Right Wound Grade/Stage: grade 1 Type of Debridement: Excisional debridement Anesthesia Used: 5% Lidocaine Gel Depth: in the subcutaneous layer Percentage of wound debrided: 100 Instrument Used: #15 blade Tissue Removed: fibrous, devitalized subcutaneous, biofilm, slough Severity: Fat Layer Exposed Amount of bleeding with debridement: Mild Bleeding Controlled with: Pressure Patient tolerated procedure well - Additional Wound Wound debrided: plantar lateral foot Laterality: Left Wound Grade/Stage: grade 1 Type of Debridement: Excisional debridement Anesthesia Used: 5% Lidocaine Gel Depth: in the subcutaneous layer Percentage of wound debrided: 100 Instrument Used: #15 blade Tissue Removed: fibrous, devitalized subcutaneous, biofilm, slough Severity: Fat Layer Exposed Amount of bleeding with debridement: Mild Bleeding Controlled with: Pressure Patient tolerated procedure: Patient tolerated procedure well Assessment/Plan Active Problems (This Medical Record has been edited. Action required.) Type 2 diabetes mellitus with diabetic polyneuropathy (Chronic) Delayed wound healing (Chronic) Malnutrition (Chronic) Chronic ulcer of left foot with fat layer exposed (Chronic) Non-compliance (Chronic) Delayed wound healing (Chronic) Ulcer of right lower extremity with fat layer exposed (Chronic) Assessment: Diabetic ulcer of right ankle -recurrent and no signs of infection, grade 1. Diabetic ulcer plantar left foot-recurrent no signs of infection, grade 1. Diabetic foot ulcer associated with type 2 diabetes mellitus. Hemoglobin A1c greater than 12, updated lab work pending. varus deformity bilateral lower extremities. malnutrition suspected. delayed healing Plan: Patient was carefully examined and evaluated in detail today. Subcutaneous excisional debridement of both ulcers done as noted in clinical panel. Procedure was well-tolerated. I recommend changing the dressing daily with Aquacel Ag to the right ankle and plantar left foot. The patient is to change her dressing in this manner on a daily basis. It is noted she is already been undergoing a comprehensive wound healing plan and has delayed and nonhealing. She has suspected adequate vascular perfusion for healing per her recent noninvasive vascular studies within the past year. She also appears to be stabilized from an infection standpoint and has had prior bone biopsies, wound culture, and intervention with infectious disease. I do not recommend any antibiotics today. Her lab work was reviewed within the past 3 months. I do recommend updating her hemoglobin A1c level; her last one on file here was April 2019. She relates she just had this done at the [facility] and this medical record will be requested. Offloading strongly recommended. Patient remains noncompliant in this. Zullinger liners were applied to the left surgical shoe previously to create a pocket to offload her plantar foot ulcer. She admits she does not offload at home and I advised her to take some accountability for this part of her healing plan. We also discussed the use of cam walker boots and I understand she is unable to wear bilateral cam walker boots due to gait instability. She will bring both of them to clinic next week we will modify them. The goal is for her to wear at least 1 CAM Walker and 1 surgical shoe at a time. She will then have these CAM Walker is ready for when she leaves the country within the next couple weeks. Optimal blood sugar control and increased protein intake also discussed. All questions were answered and she was advised to call with any further questions or concerns. All signs and symptoms of local and systemic infection were discussed with the patient today. We previously discussed surgical recommendations including exostectomy of the fifth metatarsal base of the left foot, advanced ulcer excision and closure techniques and potential external fixation device application. To use a cane or knee roller for ambulation assistance. Compliance was discussed. She understands it is not recommended that she failed to come to follow-up appointments for several months. I answered all of her questions. To return to the wound healing center 1 week or call sooner she has any questions or concerns. She was advised to follow-up promptly with her medical doctor in regards to her ongoing fatigue.
== END 2019-12-08 23:59 ==
LOC: WC 10:15
PROVIDERS: PCP Family Medicine; Visit Provider Podiatrist
DX: E11.621 Type 2 diabetes mellitus with foot ulcer (principal); E11.42 Type 2 diabetes mellitus with diabetic polyneuropathy; L97.522 Non-pressure chronic ulcer of other part of left foot with fat layer exposed; Z91.19 Patient's noncompliance with other medical treatment and regimen; L97.312 Non-pressure chronic ulcer of right ankle with fat layer exposed
CPT/HCPCS: 11042; 82962; 99213; G0463

== ENCOUNTER 2019-12-12 08:50 | Outpatient (RCR) | payer MEDICARE, MEDICAID, SELFPAY ==
[2018-09-21 13:23] VITALS: BMI 29.3
[2019-11-30 09:41] VITALS: BMI 31.1
[2019-12-09 01:06] VITALS: BP 162/87; PULSE 97; RESP 16; TEMP 35.7
[2019-12-12 10:28] VITALS: BP 139/86; PULSE 100; RESP 18; TEMP 36.7; BMI 31.1
--- NOTE | 2019-12-12 11:14 | PCM.WC.PN ---
(1) Ulcer of right foot with fat layer exposed Status: Acute Code(s): L97.512 - Non-pressure chronic 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 layer exposed Comment: distal hallux (2) Type 2 diabetes mellitus with diabetic polyneuropathy Status: Chronic Code(s): E11.42 - Type 2 diabetes mellitus with diabetic polyneuropathy (3) Delayed wound healing Status: Chronic Code(s): T14.8XXD - Other injury of unspecified body region, subsequent encounter (4) Malnutrition Status: Chronic Code(s): E46 - Unspecified protein-calorie malnutrition (5) Chronic ulcer of left foot with fat layer exposed Status: Chronic Code(s): L97.522 - Non-pressure chronic ulcer of other part of left foot with fat layer exposed (6) Ulcer of right lower extremity with fat layer exposed Status: Chronic Code(s): L97.912 - Non-pressure chronic ulcer of unspecified part of right lower leg with fat layer exposed Type of Wound Date of Service: 12/12/19 Chief Complaint: Right ankle diabetic ulcer. left foot ulcer History of Wound: This 54-year-old female returns to clinic for a right ankle ulcer and left foot ulcer. She denies redness or odor. Continues to walk on the ulcer sites at home. She denies trauma. This does have some drainage. She denies recent illness. She relates she is not followed up for an extended period of time for an unknown reason. She relates she kept forgetting to call back and r she still is not routinely checking her sugars at home. She is leaving for [place] at the end of this week. She brought her cam walkers and to with Velcro straps and for evaluation to see if the offloading pocket need be adjusted. She relates she actually walked in muddy water yesterday and had to wash both of her lower extremity devices in the wash machine. These were not permitted to drive yet and they are soaking wet. She has continued chronic fatigue. She denies fever, chill, nausea, vomiting, loss of appetite. Progress of Wound: Stable - Physical Exam Vital Signs Temp Pulse Resp BP 98.0 F 100 18 139/86 H 12/12/19 10:28 12/12/19 10:28 12/12/19 10:28 12/12/19 10:28 General: Alert, Oriented x3, Cooperative, No apparent distress Extremities: No cyanosis, Capillary Refill Less than 3 Seconds, No Calf Tenderness, Diminished Peripheral Pulses, Edema Skin: Ulcer/ Wound - No purulence, erythema, streaking, odor, infection, deep probing to bone. The ulcer beds are granular. The adjacent skin is hairless and atrophic, - - New skin discontinuity to distal right hallux without probe to bone or nail disruption Wound Measurements and Assessment WC - Nurse 1 - General Ulcer Measurement Start: 12/12/19 10:28 Freq: Status: Active Protocol: Activity Type Activity Date Activity User E-Sign Co-Sign Detail Recorded Client Recorded Date Recorded By Document 12/12/19 10:28 DV [id number] 12/12/19 10:43 DV 12/12/19 10:28 Wound Center Nurse 1 [Ulcer Assessment] #14 right lat ankle -Combined with other wound No -Current Size (cm) - Length 2.1 -Current Size (cm) - Width 1.6 -Current Size (cm) - Depth 0.2 -Total Square Cm 3.36 -Photo Taken No -Epithelialization None Present -Tunneling No -Undermining/Tunneling No -Circular Undermining No -Classification - Thickness Full Thickness without Exposed Support Structure -Exudate Amt Medium -Exudate Type Serosanguineous -Wound Margin Flat & Intact -Granulation Amt None Present (0 %) -Granulation Quality N/A -Slough/Fibrin No -Necrosis Amt Medium (34-66%) -Necrotic Tissue Type Adherent Slough -Structure Exposed None/Limited to Skin Breakdown -Texture (Natacha-wound Skin Appearance) Assessed, Scarring -Moisture (Natacha-wound Skin Appearance Assessed, ) Weeping -Color (Natacha-wound Skin Appearance) No Abnormality, Assessed -Temperature (Natacha-wound Skin No Abnormality Appearance) (Pt Warm) -Ulcer Cleansing Rinsed/ Irrigated with Saline -Foul Odor after Cleansing No -Anesthetic Used 4% Lidocaine Solution #13 Left plantar -Combined with other wound No -Current Size (cm) - Length 3.0 -Current Size (cm) - Width 3.1 -Current Size (cm) - Depth 1.0 -Total Square Cm 9.30 -Photo Taken No -Epithelialization None Present -Tunneling No -Undermining/Tunneling No -Circular Undermining No -Classification - Thickness Full Thickness without Exposed Support Structure -Exudate Amt Large -Exudate Type Serosanguineous -Wound Margin Indistinct, Non -Visible -Granulation Amt None Present (0 %) -Granulation Quality N/A -Slough/Fibrin No -Necrosis Amt Medium (34-66%) -Necrotic Tissue Type Adherent Slough -Structure Exposed None/Limited to Skin Breakdown -Texture (Natacha-wound Skin Appearance) Assessed, Scarring -Moisture (Natacha-wound Skin Appearance Assessed, ) Weeping -Color (Natacha-wound Skin Appearance) Assessed, Erythema -Temperature (Natacha-wound Skin No Abnormality Appearance) (Pt Warm) -Tenderness on Palpation (Natacha-wound No Skin Appearance) -Ulcer Cleansing Rinsed/ Irrigated with Saline -Foul Odor after Cleansing No -Anesthetic Used 4% Lidocaine Solution WC - Nurse 2 - General Ulcer CM Notes Start: 12/12/19 10:28 Freq: Status: Active Protocol: Activity Type Activity Date Activity User E-Sign Co-Sign Detail Recorded Client Recorded Date Recorded By Document 12/12/19 10:47 LISSY [id number] 12/12/19 10:52 LISSY 12/12/19 10:47 Wound Center Nurse 2 [Procedure/Treatment] 15-right hallux -Time 10:50 -Correct Patient Yes -Correct Side, Site, Position Yes -Correct Procedure Yes -Procedure Performed Yes -Type of Procedure Debridement -Clinical Debridement Subcutaneous -Post Debridement Size (cm) - Length 0.3 -Post Debridement Size (cm) - Width 1.4 -Post Debridement Size (cm) - Depth 0.1 -Total Square Cm 0.42 -Wound/Ulcer Outcome Not Healed -Ulcer Cleansing Rinsed/ Irrigated with Saline -Foul Odor after Cleansing No -Bioengineered Tissue No -Bleeding Controlled with Pressure -Offloading Yes -Type of Offloading Surgical Shoe -Treatment Response Procedure Tolerated Well #14 right lat ankle -Time 10:49 -Correct Patient Yes -Correct Side, Site, Position Yes -Correct Procedure Yes -Procedure Performed Yes -Type of Procedure Debridement -Clinical Debridement Subcutaneous -Post Debridement Size (cm) - Length 2.2 -Post Debridement Size (cm) - Width 1.6 -Post Debridement Size (cm) - Depth 0.2 -Total Square Cm 3.52 -Wound/Ulcer Outcome Not Healed -Ulcer Cleansing Rinsed/ Irrigated with Saline -Foul Odor after Cleansing No -Bioengineered Tissue No -Bleeding Controlled with Pressure -Offloading Yes -Type of Offloading Surgical Shoe -Treatment Response Procedure Tolerated Well #13 Left plantar -Time 10:49 -Correct Patient Yes -Correct Side, Site, Position Yes -Correct Procedure Yes -Procedure Performed Yes -Type of Procedure Debridement -Clinical Debridement Subcutaneous -Post Debridement Size (cm) - Length 3.0 -Post Debridement Size (cm) - Width 3.2 -Post Debridement Size (cm) - Depth 1.0 -Total Square Cm 9.60 -Wound/Ulcer Outcome Not Healed -Ulcer Cleansing Rinsed/ Irrigated with Saline -Foul Odor after Cleansing No -Bioengineered Tissue No -Bleeding Controlled with Pressure -Offloading Yes -Type of Offloading Camwalker -Treatment Response Procedure Tolerated Well [See Physician Procedure note for Specifics] Pain Scale: 0-10 Numeric [Pain] -Is Patient Pain Free? Yes Musculoskeletal: No Tenderness to Palpation of Joints or Extremities, Muscle Wasting, - - Lower extremity deformities noted with varus reducible attitude Neurological: - - Lack of epicritic sensation consistent with neuropathy status Psych/Mental Status: Normal Affect, Appropriate Debridement Note Post-Debridement Measurements/Treatment WC - Nurse 2 - General Ulcer CM Notes Start: 12/12/19 10:28 Freq: Status: Active Protocol: Activity Type Activity Date Activity User E-Sign Co-Sign Detail Recorded Client Recorded Date Recorded By Document 12/12/19 10:47 LISSY [id number] 12/12/19 10:52 LISSY 12/12/19 10:47 Wound Center Nurse 2 15-right hallux -Time 10:50 -Correct Patient Yes -Correct Side, Site, Position Yes -Correct Procedure Yes -Procedure Performed Yes -Type of Procedure Debridement -Clinical Debridement Subcutaneous -Post Debridement Size (cm) - Length 0.3 -Post Debridement Size (cm) - Width 1.4 -Post Debridement Size (cm) - Depth 0.1 -Total Square Cm 0.42 -Wound/Ulcer Outcome Not Healed -Ulcer Cleansing Rinsed/ Irrigated with Saline -Foul Odor after Cleansing No -Bioengineered Tissue No -Bleeding Controlled with Pressure -Offloading Yes -Type of Offloading Surgical Shoe -Treatment Response Procedure Tolerated Well #14 right lat ankle -Time 10:49 -Correct Patient Yes -Correct Side, Site, Position Yes -Correct Procedure Yes -Procedure Performed Yes -Type of Procedure Debridement -Clinical Debridement Subcutaneous -Post Debridement Size (cm) - Length 2.2 -Post Debridement Size (cm) - Width 1.6 -Post Debridement Size (cm) - Depth 0.2 -Total Square Cm 3.52 -Wound/Ulcer Outcome Not Healed -Ulcer Cleansing Rinsed/ Irrigated with Saline -Foul Odor after Cleansing No -Bioengineered Tissue No -Bleeding Controlled with Pressure -Offloading Yes -Type of Offloading Surgical Shoe -Treatment Response Procedure Tolerated Well #13 Left plantar -Time 10:49 -Correct Patient Yes -Correct Side, Site, Position Yes -Correct Procedure Yes -Procedure Performed Yes -Type of Procedure Debridement -Clinical Debridement Subcutaneous -Post Debridement Size (cm) - Length 3.0 -Post Debridement Size (cm) - Width 3.2 -Post Debridement Size (cm) - Depth 1.0 -Total Square Cm 9.60 -Wound/Ulcer Outcome Not Healed -Ulcer Cleansing Rinsed/ Irrigated with Saline -Foul Odor after Cleansing No -Bioengineered Tissue No -Bleeding Controlled with Pressure -Offloading Yes -Type of Offloading Camwalker -Treatment Response Procedure Tolerated Well Pain Scale: 0-10 Numeric Is Patient Pain Free? Yes Wound debrided: distal hallux, lateral ankle Laterality: Right Wound Grade/Stage: grade 1 Type of Debridement: Excisional debridement Anesthesia Used: 5% Lidocaine Gel Depth: in the subcutaneous layer Percentage of wound debrided: 100 Instrument Used: #15 blade Tissue Removed: fibrous, devitalized subcuteaneous, biofilm, slough Severity: Fat Layer Exposed Amount of bleeding with debridement: Mild Bleeding Controlled with: Pressure Patient tolerated procedure well - Additional Wound Wound debrided: plantar lateral foot Laterality: Left Wound Grade/Stage: grade 1 Type of Debridement: Excisional debridement Anesthesia Used: 5% Lidocaine Gel Depth: in the subcutaneous layer Percentage of wound debrided: 100 Instrument Used: #15 blade Tissue Removed: fibrous, devitalized subcuteaneous, biofilm, slough Severity: Fat Layer Exposed Amount of bleeding with debridement: Mild Bleeding Controlled with: Pressure Patient tolerated procedure: Patient tolerated procedure well Assessment/Plan Assessment: Diabetic ulcer of right ankle -recurrent and no signs of infection, grade 1. New ulcer right hallux, no signs of infection, grade 1. Diabetic ulcer plantar left foot-recurrent no signs of infection, grade 1. Diabetic foot ulcer associated with type 2 diabetes mellitus. Hemoglobin A1c greater than 12, updated lab work pending. varus deformity bilateral lower extremities. malnutrition suspected. delayed healing Plan: Patient was carefully examined and evaluated in detail today. Subcutaneous excisional debridement of both ulcers done as noted in clinical panel. Her new hallux ulcer site is noted and she is reassured no signs of infection are seen. Procedure was well-tolerated. I recommend changing the dressing daily with Aquacel Ag to the right ankle and plantar left foot. The patient is to change her dressing in this manner on a daily basis. It is noted she is already been undergoing a comprehensive wound healing plan and has delayed and nonhealing. She has suspected adequate vascular perfusion for healing per her recent noninvasive vascular studies within the past year. She also appears to be stabilized from an infection standpoint and has had prior bone biopsies, wound culture, and intervention with infectious disease. I do not recommend any antibiotics today. Her lab work was reviewed within the past 3 months. I do recommend updating her hemoglobin A1c level; her last one on file here was April 2019. She relates she just had this done at the [facility] and this medical record will be requested. Offloading strongly recommended. Patient remains noncompliant in this. [place] liners were applied to the left surgical shoe previously to create a pocket to offload her plantar foot ulcer. She admits she does not offload at home and I advised her to take some accountability for this part of her healing plan. We also discussed the use of cam walker boots and I understand she is unable to wear bilateral cam walker boots due to gait instability. She brought her cam walkers and surgical shoes in for evaluation today and the offloading packets appear to be in a appropriate offloading position. She is advised however to dry the shoes prior to wearing. She will then have these CAM Walker is ready for when she leaves the country within the next couple weeks. Optimal blood sugar control and increased protein intake also discussed. All questions were answered and she was advised to call with any further questions or concerns. All signs and symptoms of local and systemic infection were discussed with the patient today. We previously discussed surgical recommendations including exostectomy of the fifth metatarsal base of the left foot, advanced ulcer excision and closure techniques and potential external fixation device application. To use a cane or knee roller for ambulation assistance. Compliance was discussed. She understands it is not recommended that she failed to come to follow-up appointments for several months. I answered all of her questions. To return to the wound healing center 1 week or call sooner she has any questions or concerns.
== END 2020-01-08 23:59 ==
LOC: WC 08:50
PROVIDERS: PCP Family Medicine; Visit Provider Podiatrist
DX: E11.621 Type 2 diabetes mellitus with foot ulcer (principal); L97.522 Non-pressure chronic ulcer of other part of left foot with fat layer exposed; L97.312 Non-pressure chronic ulcer of right ankle with fat layer exposed; Z91.19 Patient's noncompliance with other medical treatment and regimen
CPT/HCPCS: 11042

== ENCOUNTER 2020-08-31 18:16 | Inpatient (IN) | payer MEDICARE, MEDICAID, SELFPAY ==
[2018-09-21 13:23] VITALS: BMI 29.3
[2020-08-31] VITALS (9 sets, daily range): BP systolic 122–187; BP diastolic 74–99; PULSE 95–106; RESP 15–20; TEMP 36.3–37; O2SAT 95–100; BMI 32.3; BMI 31.6
--- NOTE | 2020-08-31 18:46 | EKG12_ITS ---
Test Reason : AM EKG Blood Pressure : / mmHG Vent. Rate : 081 BPM Atrial Rate : 081 BPM P-R Int : 154 ms QRS Dur : 086 ms QT Int : 380 ms P-R-T Axes : 024 006 014 degrees QTc Int : 441 ms Normal sinus rhythm Normal ECG When compared with ECG of 31-AUG-2020 22:33, MANUAL COMPARISON REQUIRED, DATA IS UNCONFIRMED Confirmed by OTTO DELVALLE, DOMINIQUE ([id number]), managing editor HARINI PHAM ([id number]) on 09/02/2020 9:33:48 AM Referred By: Ashely Barakat Confirmed By:DOMINIQUE MENJIVAR MD
--- NOTE | 2020-08-31 18:46 | RAD_ITS ---
STUDY: X-RAY CHEST REASON FOR EXAM: Female, 55 years old. Chest pain radiates to left shoulder for several weeks. TECHNIQUE: Single AP portable view of the chest. COMPARISON: 09/15/2019 FINDINGS: EKG leads project over the chest. The lungs are clear and expanded. There is no demonstrated pleural abnormality. Normal size heart. Normal mediastinum and elvie. Normal visualized pulmonary arteries. Normal visualized aortic arch and descending thoracic aorta. Normal visualized thoracic spine. Normal visualized ribs, clavicles, and shoulders. There is no demonstrated abnormality of the visualized soft tissue structures of the upper abdomen. RAD/Chest 1 View (Portable) IMPRESSION: Nonacute portable x-ray examination of the chest. Electronically Signed: Shan Cadet MD ([place]) at 19:08 EST , Service support ,
[2020-08-31] MEDS: Aspirin 81 MG TAB.CHEW 324 MG PO (18:58)
[2020-08-31 18:59] LABS: Absolute Lymphocyte Count 1.76 X10^3/uL (0.83-4.51); Absolute Neutrophil Count 9.2 X10^3/uL (2.0-7.7); Basophil# 0.04 X10^3/uL; Basophil% 0.3 % (0-1); Eosinophil# 0.15 X10^3/uL; Eosinophils% 1.3 % (0-5); Hematocrit 29.6 % (37-47); Hemoglobin 9.5 g/dL (12.0-15.0); Lymphocyte # 1.76 X10^3/ul (4.0); Lymphocyte % 15.1 % (19-41); Mean Corp Hgb Conc 32.1 g/dL (32-36); Mean Corpuscular Hgb 28.4 pg (27.0-32.0); Mean Corpuscular Volume 88.6 fL (81-99); Mean Platelet Vol. 11.1 fl (6.2-12.0); Monocyte# 0.55 X10^3/uL; Monocyte% 4.7 % (0-10); NRBC Flagged by Analyzer 0 % (0-5); Neutrophil # 9.15 X10^3/uL (2.7-7.7); Neutrophil % 78.3 % (47-70); Platelet Count 455 K/mm3 (150-450); RBC Distribution Width SD 41.9 fl (35.1-43.9); Red Blood Count 3.34 M/mm3 (4.2-5.4); White Blood Count 11.7 K/mm3 (4.4-11.0)
--- NOTE | 2020-08-31 18:59 | ED.VISSUMM ---
- ER Visit Summary Date of Service: 08/31/20 Chief Complaint: Left-sided chest pain History of Present Illness: The patient is a 55 F who CAD, stent, diabetes, hypertension high cholesterol. No history of DVT or PE. He states for last 2 weeks she has had left-sided chest pain. Times radiates down her back. Says it feels like a twisting knife in her chest. Is worse with exertion and she has exertional dyspnea. No prior DVT or PE. She denies any hemoptysis. Pain is not pleuritic. She has had recent travel however to [place]. She just returned. She denies any fever, chills or cough. Physical Examination: Well-appearing middle-aged female vital signs stable afebrile. Pulse ox 9 9% on room air no signs hypoxia. HEENT exam unremarkable. Neck nontender no lymphadenopathy. Lungs clear to auscultation bilaterally. Heart regular rhythm rate about 100 no murmur. Chest wall not specifically tender. Abdomen soft nontender. Normal bowel sounds no peritoneal signs. Moving all 4 extremities. Neurovascular intact. Radial pulses equal symmetrical. Calves nontender without edema or cords bilaterally. Back nontender. Neurologically she is awake alert with no focal motor deficits. Test Results: EKG read by myself shows a sinus tachycardia rate of 104 with intermittent PVCs and an old septal infarct otherwise unchanged from prior EKG from 2019. No acute signs of FL or ischemia. Chest x-ray portable 1 view interpreted by myself shows no acute abnormality. Radiologist also read the film and agrees. CTA was done due to elevated D-dimer CTA showed no acute abnormality read by the radiologist reviewed by me. No PE seen. No infiltrate. Awake 11.7. Hemoglobin 9.5 patient normally has a hemoglobin running between 8 and 12 and is a chronic anemia. Chemistries show BUN of 43 creatinine 1.92 she was given a liter of normal saline. For acute kidney injury. Glucose elevated 497 she is given 16 units of insulin plus a liter of fluid. Normal gap of 11. Troponin normal. D-dimer elevated 1.34. Emergency Department Course and Treatment: Patient undergoing a cardiac work-up. I will also obtain a D-dimer due to her recent travel. She will be given aspirin. Concern this is cardiac due to her prior history and the way she describes a discomfort and not exertional. Treatment Plan: Repeat exam patient is doing well at 2022 PM. She is receiving IV fluids and will be getting insulin for her hyperglycemia. I will have the hospitalist on page for admission for chest pain of uncertain etiology. Disposition: Admission Impression: Acute left-sided chest pain of uncertain etiology History of CAD with 1 prior cardiac stent Acute hyperglycemia history of diabetes Acute kidney injury with a creatinine of 1.92. This note was generated with [employer] dictation software. It may contain incorrect words, spelling, and punctuation that were not noted in review of the chart prior to signing ED Disposition - Plan for ED Patient: Referrals: Raúl Eric MD [Primary Care Provider] -
[2020-08-31 19:16] LABS: D-Dimer Quantitative (DVT/PE) 1.34 FEU/ug/m (0.27-0.49)
--- NOTE | 2020-08-31 19:17 | CT_ITS ---
STUDY: CTA CHEST REASON FOR EXAM: Female, 55 years old. Left-sided chest pain, radiating to left shoulder elevated d-dimer RADIATION DOSAGE (If Supplied By Facility): CTDIvol = ( 13.63 ) mGy, DLP = ( 484.99 ) mGycm TECHNIQUE: The examination was performed with the intravenous administration of IV 75mL Isovue-370. Post-processing of the angiographic images was performed, with multiplanar reformation and 3D reconstruction. Individualized dose optimization techniques were used for this CT. COMPARISON: None. FINDINGS: There is no acute or chronic pulmonary embolism. Aorta is of normal caliber. Lungs are clear. There is no pneumothorax, pulmonary edema or pleural effusions. Cardiac chambers are normal in size and shape. There are stents in the LAD. Mediastinal contents are normal. Osseous structures are intact. Abdominal structures are unremarkable. CT/CTA Chest W/WO Contrast IMPRESSION: 1. No pulmonary embolism 2. No acute chest findings. Electronically Signed: Janessa Baca, at 20:03 EST Tel , Service support ,
[2020-08-31 19:20] LABS: Anion Gap 11 (5-15); BUN 43 mg/dL (7-18); BUN/Creat Ratio 22.4 RATIO (10-20); Calcium,Total 9.4 mg/dL (8.5-10.1); Chloride 105 mmol/L (98-107); Creatinine, Serum 1.92 mg/dL (0.55-1.02); EST Glomerular Filtration Rate 29 mL/min (>60); Est Glom Filt Rate - Afr Amer 35 mL/min (>60); Estimated Creatinine Clearance 30.99 ml/min; Glucose 497 mg/dL (74-106); Potassium 4.2 mmol/L (3.5-5.1); Sodium Level 138 mmol/L (136-145)
[2020-08-31] MEDS: 0.9% Normal Saline 1,000 ML 999 ML IV (20:04)
[2020-08-31] MEDS: Insulin Lispro 100 UNIT/ML INSULN.PEN 16 UNIT SC (20:10)
--- NOTE | 2020-08-31 20:23 | HP.PCM_ITS ---
Problem List (1) Diabetic infection of left foot Status: Acute (2) Chest pain Status: Acute Qualifiers: Chest pain type: unspecified Qualified Code(s): R07.9 - Chest pain, unspecified (3) Anemia Status: Chronic Qualifiers: Anemia type: unspecified type Qualified Code(s): D64.9 - Anemia, unspecified (4) Anxiety and depression Status: Chronic (5) RLS (restless legs syndrome) Status: Chronic (6) Uncontrolled type II diabetes mellitus Status: Chronic Qualifiers: Glycemic state: with hyperglycemia Qualified Code(s): E11.65 - Type 2 diabetes mellitus with hyperglycemia (7) Obesity Status: Chronic Qualifiers: Obesity type: due to excess calories Obesity classification: adult class 1 (BMI 30 - 34.9) Serious obesity comorbidity presence: unspecified whether serious comorbidity present Body mass index: BMI 31.0-31.9 Qualified Code(s): E66.09 - Other obesity due to excess calories; Z68.31 - Body mass index [BMI] 31.0-31.9, adult (8) NSTEMI (non-ST elevated myocardial infarction) Status: Resolved (9) History of coronary artery stent placement Status: Resolved Comment: PCI-DARA mid LAD w/ 2.25 x 16 mm Promus Synergy, DARA prox LAD w/ 2.5 x 12 mm Promus Synergy 09/21/2018 (10) Essential (primary) hypertension Status: Chronic (11) HLD (hyperlipidemia) Status: Chronic Qualifiers: Hyperlipidemia type: unspecified Qualified Code(s): E78.5 - Hyperlipidemia, unspecified History of Present Illness Date of Admission: 08/31/20 Chief Complaint: Chest pain The patient is a 55 y/o F w/ PMHx: Uncontrolled Diabetes mellitus type II, RLS, HTN, HLD, Hx NSTEMI, CAD s/p PCI DARA mid LAD, prox LAD, Chronic ischemic cardiomyopathy (45%), CKD stage III, Depression and Anxiety, AOCD/Fe deficiency anemia who presents to the [facility] ED on 08/31/20 with history of 2 weeks of left- sided chest discomfort with occasional radiation towards her back described as sharp, like a knife twisting into her chest, and a 10 in severity upon initial onset worse with exertion with dyspnea associated, not worse with certain movements or deep inspiratory effort prompting ED evaluation. Patient now notes chest discomfort is 2-3 out of 10 following pain medication. Patient does note that she recently was traveling and just returned from [place] as well as several other places and does states she has had occasional loose stools but denies any recent fever, chills, cough. Patient does admit that she has had a chronic wound on her plantar left foot approximately silver dollar size and that initially it healed however the last 3 months when she was out of country it returned and she denies having had any treatment and does state that she has had ongoing purulent drainage from the wound. She also admits that she wears sandals despite her uncontrolled diabetic status. Work-up in the ED included T 97.3, heart rate 106, BP 187/99, respiratory rate 20, 100% on room air, CBC with WC 11.7, hemoglobin 9.5, platelet 455 with left shift, D-dimer 1.34, BMP with BUN/creatinine 43/1.92, glucose 497, troponin less than 0.015, chest x-ray with no acute cardiopulmonary findings, follow-up CTPA with no evidence of acute pulmonary emboli or acute cardiopulmonary findings, EKG with sinus tachycardia with intermittent PVC with no acute evidence of ischemia similar to prior. In the ED patient ministered normal saline as well as aspirin 324 mg p.o. x1. Past Medical History Past Medical History (Chronic Problems): Chronic Problems (This Medical Record has been edited. Action required.) Anemia (Chronic) Anxiety and depression (Chronic) RLS (restless legs syndrome) (Chronic) Uncontrolled type II diabetes mellitus (Chronic) Obesity (Chronic) Atherosclerosis of [place] coronary artery of [place] heart without angina pectoris (Chronic) Essential (primary) hypertension (Chronic) HLD (hyperlipidemia) (Chronic) Medical History: Medical History (This Medical Record has been edited. Action required.) Atherosclerosis of [place] coronary artery of [place] heart without angina pectoris (Chronic) I25.10 NSTEMI (non-ST elevated myocardial infarction) (Resolved) Onset Date: 09/20/18 I21.4 Essential (primary) hypertension (Chronic) I10 HLD (hyperlipidemia) (Chronic) E78.5 Abscess of right lower leg L02.415 diabetic ulcer abscess right lateral malleolus Acquired varus deformity of left foot M21.172 Acquired varus deformity of right foot M21.171 Anxiety F41.9 Back pain, chronic M54.9, G89.29 Cellulitis of foot, left L03.116 cellulitis and abscess of the left foot with possible osteomyelitis Chronic renal failure N18.9 Chronic ulcer of left foot with fat layer exposed L97.522 Chronic ulcer of left foot with fat layer exposed L97.522 Chronic ulcer of left foot with necrosis of muscle L97.523 Delayed wound healing T14.8XXD Delayed wound healing T14.8XXD Delayed wound healing T14.8XXD Depression F32.9 Diabetic foot ulcer associated with type 2 diabetes mellitus E11.621, L97.509 Diabetic polyneuropathy E11.42 Stage II?3 Diabetic ulcer of right ankle E11.622, L97.319 diabetic ulcer abscess right lateral malleolus GERD (gastroesophageal reflux disease) K21.9 Hypomagnesemia E83.42 Malnutrition E46 Non-compliance Z91.19 Normocytic anemia D64.9 Obesity (BMI 30.0-34.9) E66.9 Osteomyelitis of left foot M86.9 RLS (restless legs syndrome) Type 2 diabetes mellitus with diabetic polyneuropathy E11.42 Type 2 diabetes mellitus with diabetic polyneuropathy E11.42 Type II diabetes mellitus, uncontrolled E11.65 Ulcer of right foot with fat layer exposed L97.512 distal hallux Ulcer of right lower extremity with fat layer exposed L97.912 Chest pain (Resolved) R07.9 Ischemic cardiomyopathy I25.5 EF 45% Necrotizing soft tissue infection (Resolved) M79.89 Severe sepsis (Resolved) A41.9, R65.20 Hemoglobin A1c greater than 9.0% (Inactive) R73.09 12.2 Allergies Penicillins Allergy (Verified 08/31/20 18:25) Shortness of breath vancomycin Allergy (Verified 08/31/20 18:25) Itching metronidazole Adverse Reaction (Verified 08/31/20 18:25) Nausea OXYCONTIN Allergy (Uncoded 08/31/20 18:25) Shortness of breath Home Medications: Ambulatory Orders Medication Instructions Recorded Gabapentin [Neurontin] 900 mg PO TIDCM 09/20/18 Calcium Carbonate [Tums] 500 mg PO Q4H PRN PRN 04/02/19 Iron Polysaccharide Complex 150 mg PO DAILYCM #30 cap 05/14/19 [Ferrex 150] Paroxetine [Paxil] 20 mg PO QHS #30 tab 08/05/19 Pramipexole Di-HCl [Mirapex] 1.5 mg PO BID #90 tab 05/14/19 Acetaminophen [Tylenol Tablet] 650 mg PO Q6H PRN PRN #0 tab 06/16/19 Oxycodone HCl/Acetaminophen 1 ea PO BID PRN PRN 08/20/19 [Oxycodone-Acetaminophen 5-325] atorvastatin 80 mg tablet 80 mg PO QHS #90 tab 11/30/19 clopidogrel 75 mg tablet 75 mg PO DAILY #90 tab 11/30/19 isosorbide mononitrate 30 mg 30 mg PO DAILY #90 tab 11/30/19 tablet,extended release 24 hr Insulin Glargine [Lantus SoloStar 30 units SC BREAKFAST 08/31/20 Pen] Insulin Lispro [Humalog KwikPen] 20 unit SC TIDCM 08/31/20 Zolpidem Tartrate [Ambien 5 mg PO QHS PRN PRN 09/01/20 (Generic)] Surgical History: Surgical History (This Medical Record has been edited. Action required.) History of coronary artery stent placement (Resolved) Onset Date: 09/21/18 Z95.5 PCI-DARA mid LAD w/ 2.25 x 16 mm Promus Synergy, DARA prox LAD w/ 2.5 x 12 mm Promus Synergy 09/21/2018 Surgical History: angioplasty - with stent., - - [place] R foot toe amputations and I+Ds, BL carpal tunnel surgery 1994, right shoulder surgery in 1994, section x2, most recently LLE I+D. 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 Smoking Status: Never smoker Tobacco Use: Non-smoker Alcohol: None Drugs: None - *Family History Paternal History Items: - - Patient states her father when she was 5 years old, denies known medical history, denies known cardiac history. Maternal History Items: Cancer - Patient had a brother who had testicular cancer; and later cancer in his stomach., Diabetes, Hypertension, - - Her mother at the age of 67 to a blood clot to the brain. She had had multiple strokes preceding that. Patient had 3 brothers who had bypass surgery in their 50s. Sibling History Items: - - She has one brother who is secondary to cancer and she does not know what kind of cancer he had. She also has 3 brothers with a history of cardiovascular disease, stents and coronary artery bypass grafting. Review of Systems Constitutional: Reports: Malaise, Weakness, Fatigue. Denies: Anorexia, Chills, Fever, Weight Change HEENT: Denies: Head Aches, Sinus Congestion, Sinus Drainage Cardiovascular: Reports: Chest Pain. Denies: Light Headedness, Orthopnea, Palpitations, Syncope Respiratory: Reports: Shortness of breath upon exertion. Denies: Cough, Shortness of Breath, Shortness of breath at rest, Sputum production, Wheezing Gastrointestinal: Denies: Abdominal Pain, Nausea, Vomiting Genitourinary: Denies: Dysuria Musculoskeletal: Reports: Foot Pain, Joint Pain Skin: Reports: Skin Changes, Wounds. Denies: Rash Neurological: Denies: Numbness, Tingling, Focal weakness Psychiatric: Reports: Anxiety, Depression. Denies: Homicidal Ideations, Suicidal Ideations Hematologic/ Lymphatic: Reports: Easy Bruising, Easy Bleeding VTE Information - Inpt Only VTE Present on Admission: No VTE Mechan Device Prophylaxis: SCD's VTE Pharm Prophylaxis ordered?: Yes Patient Problems: Active and Suspected Problems (This Medical Record has been edited. Action required.) Diabetic infection of left foot (Acute) Chest pain (Acute) Subjective: Patient laying in the ED bed, significant restless legs ongoing, notes chest discomfort lessened, 2-3 out of 10 in severity currently. Objective: Physical Examination: General: awake, alert, oriented x 3 and cooperative, laying in the ED bed, fatigue, restless legs ongoing. Skin: normal color, turgor, no icterus, cyanosis except significant left plantar foot with approximate silver dollar sized wound, poor granulation noted, purulent discharge, yellow, some maceration to the periwound skin with sloughing away. HEENT: AT/NC, EOMI, PERRLA, MMM, no carotid bruits or JVD noted. Lungs: Diminished breath sounds, greater bases, moderate decrease BL bases, no rales, ronchi or wheezing. Heart: Tachycardic with regular rhythm; no gallop, rub audible. Abdomen: soft, obese, NTTP, ND, normal BS, no HSM. Extremities: no cyanosis, clubbing, or edema, see skin. Neurological: patient awake, alert, oriented as noted; cognitive function appears baseline intact; pupils equally reactive to light and accomodation; cranial nerves II-XII grossly normal, moving all 4 extremities, no focal deficits, strength mildly to moderately global decrease secondary to acute complaints. Psychiatric: affect appears restless, no acute evidence of depressive or anxiety feelings. - Physical Exam Vitals/I&O's: Vital Signs Temp Pulse Resp BP Pulse Ox 98.6 F 95 19 H 157/87 H 96 08/31/20 20:05 08/31/20 20:05 08/31/20 20:05 08/31/20 20:05 08/31/20 20:05 Oxygen Delivery Method Room Air Weight: 199 lb 15.348 oz Body Mass Index (BMI) 32.3 Finger Stick Blood Glucose 91 Laboratory Results 08/31/20 18:23: WBC 11.7 H, RBC 3.34 L, Hgb 9.5 L, Hct 29.6 L, MCV 88.6, MCH 28.4, MCHC 32.1, RDW Std Deviation 41.9, RDW Coeff of Fior 13.0, Plt Count 455 H, MPV 11.1, Immature Gran % (Auto) 0.300, Neut % (Auto) 78.3 H, Lymph % (Auto) 15.1 L, Iron % (Auto) 4.7, Eos % (Auto) 1.3, Baso % (Auto) 0.3, Absolute Neuts (auto) 9.2 H, Absolute Lymphs (auto) 1.76, Nucleated RBC % 0 08/31/20 18:23: Sodium 138, Potassium 4.2, Chloride 105, Carbon Dioxide 22.0, Anion Gap 11, BUN 43 H, Creatinine 1.92 H, Estim Creat Clear Calc 30.99, Est GFR (MDRD) Af Amer 35 L, Est GFR (MDRD) Non-Af 29 L, BUN/Creatinine Ratio 22.4 H, Glucose 497 H*, Calcium 9.4, Troponin I < 0.015 08/31/20 18:23: D-Dimer Quant (PE/DVT) 1.34 H* Assessment/Plan All Active Problems (This Medical Record has been edited. Action required.) Diabetic infection of left foot (Acute) Chest pain (Acute) NSTEMI (non-ST elevated myocardial infarction) (Resolved 09/20/18) History of coronary artery stent placement (Resolved 09/21/18) Abscess of left foot (Resolved) Cellulitis of left foot (Resolved) Chest pain (Resolved) Diabetic foot infection (Resolved) Diarrhea (Resolved) Enteritis, Yersinia enterocolitica (Resolved) Hyperglycemia (Resolved) Intractable nausea and vomiting (Resolved) Malnutrition (Resolved) Necrotizing soft tissue infection (Resolved) Severe sepsis (Resolved) The patient is a 55 y/o F w/ PMHx: Uncontrolled Diabetes mellitus type II, RLS, HTN, HLD, Hx NSTEMI, CAD s/p PCI DARA mid LAD, prox LAD, Chronic ischemic cardiomyopathy (45%), CKD stage III, Depression and Anxiety, AOCD/Fe deficiency anemia who presents to the [facility] ED on 08/31/20 with history of 2 weeks of left- sided chest discomfort with occasional radiation towards her back described as sharp, like a knife twisting into her chest, worse with exertion with dyspnea associated, not worse with certain movements or deep inspiratory effort prompting ED evaluation as well as ongoing purulent drainage from L foot wound. 1. Chest Pain: EKG in ED with sinus tachycardia with intermittent PVC with no acute evidence of ischemia, CXR w/ no acute cardiopulmonary findings however D- dimer elevated with follow-up CTPA with no evidence of acute pulmonary emboli or acute cardiopulmonary findings, initial trop less than 0.015. Will admit to PCU, place on a monitored bed to assure no acute myocardial infarction with serial cardiac enzymes and EKGs. If cardiac enzymes and repeat EKGs remain unremarkable given noted CTPA with no evidence PE will pursue a.m. cardiac stress testing. FLP in AM. Magnesium level requested. ASA, NG, morphine. Additionally given patient history of recent travel she should be quarantined per [place] protocol if region appropriate. Covid testing pending given significant travel history with concurrent occasional loose stool however as noted prior CTPA with no obvious evidence of Covid infection. 2. Left diabetic foot wound, infected: Admission CBC w/ WBC 11.7 with left shift and tachycardic of some concern especially given no treatment for the last several months and silver dollar sized open wound to the plantar left foot with macerated skin surrounding and sloughing. Will maintain on IV vancomycin and Zosyn pending wound culture and wound MRSA PCR with de-escalation once appropriate, podiatry consulted, wound RN consulted, continue dressing changes, plan repeat CBC in AM, continue affected extremity elevation above heart when seated and in bed. 3. FELI on Chronic Kidney Disease Stage III versus progressive disease: Admission BUN/Cr 43/1.92, baseline renal function 1.1-1.3 but last lab had been on 09/15/2019, repeat BMP in AM. 4. Diabetes mellitus type II, uncontrolled with hyperglycemia with neuropathy and history of chronic diabetic wounds: Admission glucose 497, possibly component of stress response but likely poorly controlled primarily, will obtain A1c, will increase patient long-acting and continue scheduled short acting regimen with overlapping insulin sliding scale with Accu-Cheks, ADA diet, Renate in consultation for education and teaching. 5. CAD: Status post PCI mid LAD and proximal LAD 2018, will continue patient aspirin, Plavix, statin, not on beta-kunal nor MYLA/ARB. 6. Hypertension: Continue home regimen including isosorbide with hold parameters as needed, PRN hydralazine. 7. Hyperlipidemia: Continue home statin regimen. AM FLP. 8. Chronic normocytic anemia/iron deficiency anemia: Admission hemoglobin 9.5, prior to this labs had been 8-9 primarily but these labs are from 2019, continue iron supplementation. 9. Anxiety and depression: We will continue patient home Paxil regimen. 10. Obesity: Weight loss and lifestyle changes encouraged. 11. RLS: We will continue patient on Mirapex regimen. 12. DVT prophylaxis: SCDs, Lovenox. 13. CODE status: Patient does not have healthcare power of banking attorney nor living will. Given her significant history encouraged her to set this up and noted that if she needed assistance to request consultation with case finisher/social workers. Discussed CODE status at length including difference between FULL code, DNR-CCA and DNR-CC status. Following discussions about the differences in these status, requested Full Code status. Advanced Care Planning Face to Face Time: 16 minutes. Inpatient E&M: 46367 Init Hosp L3 Procedures: 07387 Advncd Care Plan 30 Min
--- NOTE | 2020-08-31 21:05 | RAD_ITS ---
STUDY: X-RAY - LEFT FOOT CLINICAL: Female, 55 years old. Diabetic foot ulcer on bottom of foot. TECHNIQUE: 3 view(s) of the foot. COMPARISON: None. FINDINGS: Normal talus, calcaneus, and tarsal bones. Normal visualized subtalar, talonavicular, calcaneocuboid, tarsal and tarsometatarsal articulations. Postsurgical change status post resection of the fifth toe through the proximal shaft of the metatarsal. There is mild subchondral lucency of the stump and mild acute osteomyelitis is not excluded. Normal metatarsophalangeal joint of the great toe. Normal tibial and fibular sesamoid bones. Normal interphalangeal joint of the great toe. Normal phalanges of the great toe. Normal second through fifth metatarsophalangeal joints. Normal interphalangeal joints and phalanges of the lesser toes. Focal soft tissue swelling of the plantar surface of the foot RAD/Foot min 3 Views IMPRESSION: Status post resection of the fifth toe proximal shaft of the fifth metatarsal. Cannot definitively exclude early changes of acute osteomyelitis at the operative site. Clinical correlation recommended Electronically Signed: Jefe Cesar MD at 22:02 EST , Service support ,
[2020-08-31] MEDS: LORazepam 0.5 MG Tablet PO (21:10)
--- NOTE | 2020-08-31 21:47 | EKG12_ITS ---
Test Reason : ADM EKG Blood Pressure : / mmHG Vent. Rate : 097 BPM Atrial Rate : 097 BPM P-R Int : 120 ms QRS Dur : 080 ms QT Int : 350 ms P-R-T Axes : 035 005 014 degrees QTc Int : 444 ms Normal sinus rhythm Normal ECG When compared with ECG of 15-SEP-2019 07:22, No significant change was found Confirmed by OTTO DELVALLE, DOMINIQUE ([id number]), photographic editor HARINI PHAM ([id number]) on 09/02/2020 9:34:03 AM Referred By: Ashely Barakat Confirmed By:DOMINIQUE MENJIVAR MD
--- NOTE | 2020-08-31 21:47 | ECHOD_ITS ---
Reason For Study: ARRHYTHYMIA Procedure This was a 2D Doppler, Color Flow transthoracic echocardiogram. Exam performed portable in patient room. Left Ventricle Normal LV size. Left ventricular systolic function is normal. The estimated ejection fraction is 55 %. Normal diastology for age. No regional wall motion abnormalities noted. Right Ventricle Normal RV size. Normal systolic function. Atria Normal left atrium. Normal right atrium. Mitral Valve Normal mitral valve. Mild (1+) eccentric mitral valve insufficiency. Tricuspid Valve Normal tricuspid valve. Mild (1+) tricuspid valve insufficiency. Pulmonary artery systolic pressure is 30 mmHg. Aortic Valve Normal aortic valve. Trisinus/trileaflet aortic valve. Pulmonic Valve Normal pulmonic valve. Great Vessels Normal aortic root. The pulmonary artery is normal size. Normal inferior vena cava. Pericardium/Pleural No pericardial effusion. MMode/2D Measurements & Calculations LVIDd: 4.7 cm IVSd: 0.97 cm Ao root diam: 2.9 cm LVIDs: 3.3 cm LVPWd: 1.0 cm RVDd: 2.9 cm FS: 31.0 % LAV(MOD-bp): 40.1 ml LVAd ap4: 35.3 cm2 SV(MOD-sp4): 77.6 ml LAV(MOD-bp) Indexed: 20.3 ml/m2 EDV(MOD-sp4): 131.0 ml LAV(MOD-sp2): 39.0 ml EDV(sp4-el): 134.1 ml LAV(MOD-sp4): 35.8 ml LVAs ap4: 20.6 cm2 ESV(MOD-sp4): 53.4 ml ESV(sp4-el): 54.5 ml EF(MOD-sp4): 59.2 % EF(sp4-el): 59.3 % SV(sp4-el): 79.5 ml LA A4 area: 15.4 cm2 LA dimension(2D): 3.8 cm RA A4 area: 12.3 cm2 Time Measurements MV dec time: 0.18 sec Doppler Measurements & Calculations MV E max rhys: 103.2 cm/sec Lat Peak E' Rhys: 11.4 cm/sec Med Peak E' Rhys: 6.8 cm/sec MV A max rhys: 107.5 cm/sec E/E' lat: 9.0 E/E' med: 15.2 MV E/A: 0.96 Ao V2 max: 144.9 cm/sec LV V1 max: 77.1 cm/sec PA V2 max: 117.2 cm/sec Ao max P.4 mmHg LV V1 max P.4 mmHg PI end-d rhys: 112.0 cm/sec TR max rhys: 252.3 cm/sec TR max P.5 mmHg Interpretation Summary Normal LV size. Left ventricular systolic function is normal. The estimated ejection fraction is 55 %. Normal diastology for age. Pulmonary artery systolic pressure is 30 mmHg. Mild (1+) eccentric mitral valve insufficiency. Ordering Physician: Ashely Barakat Referring Physician: ALESSANDRO KHALIL Performed By: Leonor Salinas RDCS
--- NOTE | 2020-08-31 21:56 | ED.RN ---
this nurse spoke with iris wang, about accu check needs done.
[2020-08-31 22:30] LABS: Bedside Glucose 136 mg/dL (70-110)
[2020-08-31] MEDS: 0.9% Normal Saline 1,000 ML 125 ML IV (23:02)
[2020-08-31] MEDS: Atorvastatin Calcium 80 MG Tablet PO (23:32)
[2020-08-31] MEDS: Paroxetine 20 MG Tablet PO (23:32)
[2020-08-31] MEDS: Gabapentin 300 MG Capsule 900 MG PO (23:34)
[2020-08-31] MEDS: oxyCODONE 5 MG Tablet PO (23:44)
[2020-09-01] VITALS (11 sets, daily range): BP systolic 113–153; BP diastolic 54–85; PULSE 80–96; RESP 16–18; TEMP 36.7–37.1; O2SAT 97–100
[2020-09-01 00:29] LABS: M R Staph aureus DNA By PCR Negative (Negative); Probe Check PASS; Specimen Processing Control PASS; Staph aureus DNA By PCR POSITIVE (Negative)
[2020-09-01] MEDS: Pramipexole Di-HCl 1 MG Tablet 3 MG PO ×2 (00:39→21:38)
[2020-09-01] MEDS: Zolpidem Tartrate 5 MG Tablet PO ×2 (00:39→21:39)
--- NOTE | 2020-09-01 02:41 | PCM.RX.CS ---
Consult Pharmacy has been consulted to manage selected antiobiotic: Vancomycin Type of Consult: New start Suspected Infection: Skin/Soft tissue Labs: Sodium 138 mmol/L (136-145) 08/31/20 18:23 Potassium 4.2 mmol/L (3.5-5.1) 08/31/20 18:23 Chloride 105 mmol/L (98-107) 08/31/20 18:23 Carbon Dioxide 22.0 mmol/L (21.0-32.0) 08/31/20 18:23 Anion Gap 11 (5-15) 08/31/20 18:23 BUN 43 mg/dL (7-18) H 08/31/20 18:23 Creatinine 1.92 mg/dL (0.55-1.02) H 08/31/20 18:23 Est GFR (MDRD) Af Amer 35 mL/min (>60) L 08/31/20 18:23 Est GFR (MDRD) Non-Af 29 mL/min (>60) L 08/31/20 18:23 BUN/Creatinine Ratio 22.4 RATIO (10-20) H 08/31/20 18:23 Glucose 497 mg/dL (74-106) H* 08/31/20 18:23 Goal Trough: 15-20 mcg/mL Pharmacy Plan for Drug Dosing: Pharmacy Service will continue to monitor and adjust dosing as required. Medications Vancomycin HCl 1,250 mg/ (Sodium Chloride) 275 mls @ 167 mls/hr IV Q24H TAB Discontinued Medications Vancomycin HCl 2,000 mg/ (Sodium Chloride) 540 mls @ 250 mls/hr IV X1 ONE Stop: 09/01/20 02:39 Last Admin: 09/01/20 02:05 Dose: 250 mls/hr Documented by: Follow-Up Labs: Trough Vancomycin Labs to be done on [date and time ordered]: 09/03 @ [id number]
[2020-09-01 03:39] LABS: Probe Check PASS; Specimen Processing Control PASS
[2020-09-01 04:31] LABS: Bedside Glucose 256 mg/dL (70-110)
[2020-09-01 05:32] LABS: Absolute Lymphocyte Count 2.03 X10^3/uL (0.83-4.51); Absolute Neutrophil Count 7.5 X10^3/uL (2.0-7.7); Basophil# 0.04 X10^3/uL; Basophil% 0.4 % (0-1); Eosinophil# 0.21 X10^3/uL; Eosinophils% 2.1 % (0-5); Hematocrit 25.9 % (37-47); Hemoglobin 8.2 g/dL (12.0-15.0); Lymphocyte # 2.03 X10^3/ul (4.0); Lymphocyte % 19.8 % (19-41); Mean Corp Hgb Conc 31.7 g/dL (32-36); Mean Corpuscular Hgb 28.1 pg (27.0-32.0); Mean Corpuscular Volume 88.7 fL (81-99); Mean Platelet Vol. 10.9 fl (6.2-12.0); Monocyte# 0.48 X10^3/uL; Monocyte% 4.7 % (0-10); NRBC Flagged by Analyzer 0 % (0-5); Neutrophil # 7.46 X10^3/uL (2.7-7.7); Neutrophil % 72.8 % (47-70); Platelet Count 390 K/mm3 (150-450); RBC Distribution Width CV 13.2 % (11.6-14.6); RBC Distribution Width SD 42.8 fl (35.1-43.9); Red Blood Count 2.92 M/mm3 (4.2-5.4); White Blood Count 10.2 K/mm3 (4.4-11.0)
[2020-09-01 05:53] LABS: ALB/GLOB Ratio 0.7 RATIO (0.9-2.4); AST(SGOT) 13 U/L (15-37); Alanine Aminotransfer ALT/SGPT 19 U/L (13-56); Albumin, Serum 2.7 g/dL (3.2-5.0); Alkaline Phosphatase 121 U/L (45-117); Anion Gap 6 (5-15); BUN 37 mg/dL (7-18); BUN/Creat Ratio 29.1 RATIO (10-20); Calcium,Total 8.5 mg/dL (8.5-10.1); Chloride 111 mmol/L (98-107); Cholesterol 147 mg/dL (200); Creatinine, Serum 1.27 mg/dL (0.55-1.02); EST Glomerular Filtration Rate 46 mL/min (>60); Est Glom Filt Rate - Afr Amer 56 mL/min (>60); Estimated Creatinine Clearance 46.86 ml/min; Globulin 4.1 g/dL (2.2-4.2); Glucose 248 mg/dL (74-106); High Density Lipoprotein 35 mg/dL; Potassium 3.9 mmol/L (3.5-5.1); Protein, Total 6.8 g/dL (6.4-8.2); Sodium Level 139 mmol/L (136-145); Triglycerides 194 mg/dL; Very Low Density Lipoprotein 39 mg/dL (5-40)
--- NOTE | 2020-09-01 05:55 | EKG12_ITS ---
Test Reason : SOB Blood Pressure : / mmHG Vent. Rate : 104 BPM Atrial Rate : 107 BPM P-R Int : 146 ms QRS Dur : 094 ms QT Int : 380 ms P-R-T Axes : 040 002 029 degrees QTc Int : 499 ms Sinus tachycardia Septal infarct , age undetermined Abnormal ECG Confirmed by OTTO DELVALLE, DOMINIQUE ([id number]), editorial writer KAROLINA DE LA O ([id number]) on 09/03/2020 10:38:07 AM Referred By: Ashely Barakat Confirmed By:DOMINIQUE MENJIVAR MD
[2020-09-01] MEDS: Clopidogrel Bisulfate 75 MG Tablet PO (06:18)
[2020-09-01] MEDS: Aspirin E.C. 81 MG Tablet PO (06:19)
[2020-09-01 07:06] LABS: Bedside Glucose 267 mg/dL (70-110)
[2020-09-01 07:48] LABS: Hemoglobin A1c 9.8 % (3.8-5.6)
--- NOTE | 2020-09-01 10:50 | CON.PCM_ITS ---
Reason for Consult Date of Consultation: 09/01/20 Reason for Consultation: wound left foot History of Present Illness: The patient is a 55 year old female with multiple medical problems and comorbidities presented to the hospital for chest pain, in process of cardiac workup. It was also noted she had a large ulceration to the left foot and there was concern about infection, patient has been started on IV antibiotics and has not had adverse reaction. Patient relates she just recently got back from [place] about 2 weeks ago. She relates her had the wound healed in [place] but reopened up while she was there ~3 months ago. She relates she tried to have some inserts made in [place] but she states they were not able to make them properly. Patient has been walking all over her foot, and wound is not healing. Podiatry was consulted for further evaluation. Past Medical History Past Medical History (Chronic Problems): Chronic Problems (This Medical Record has been edited. Action required.) Anemia (Chronic) Anxiety and depression (Chronic) RLS (restless legs syndrome) (Chronic) Uncontrolled type II diabetes mellitus (Chronic) Obesity (Chronic) Atherosclerosis of jamul coronary artery of jamul heart without angina pectoris (Chronic) Essential (primary) hypertension (Chronic) HLD (hyperlipidemia) (Chronic) Medical History: Medical History (This Medical Record has been edited. Action required.) Atherosclerosis of jamul coronary artery of jamul heart without angina pectoris (Chronic) I25.10 NSTEMI (non-ST elevated myocardial infarction) (Resolved) Onset Date: 09/20/18 I21.4 Essential (primary) hypertension (Chronic) I10 HLD (hyperlipidemia) (Chronic) E78.5 Abscess of right lower leg L02.415 diabetic ulcer abscess right lateral malleolus Acquired varus deformity of left foot M21.172 Acquired varus deformity of right foot M21.171 Anxiety F41.9 Back pain, chronic M54.9, G89.29 Cellulitis of foot, left L03.116 cellulitis and abscess of the left foot with possible osteomyelitis Chronic renal failure N18.9 Chronic ulcer of left foot with fat layer exposed L97.522 Chronic ulcer of left foot with fat layer exposed L97.522 Chronic ulcer of left foot with necrosis of muscle L97.523 Delayed wound healing T14.8XXD Delayed wound healing T14.8XXD Delayed wound healing T14.8XXD Depression F32.9 Diabetic foot ulcer associated with type 2 diabetes mellitus E11.621, L97.509 Diabetic polyneuropathy E11.42 Stage II?3 Diabetic ulcer of right ankle E11.622, L97.319 diabetic ulcer abscess right lateral malleolus GERD (gastroesophageal reflux disease) K21.9 Hypomagnesemia E83.42 Malnutrition E46 Non-compliance Z91.19 Normocytic anemia D64.9 Obesity (BMI 30.0-34.9) E66.9 Osteomyelitis of left foot M86.9 RLS (restless legs syndrome) Type 2 diabetes mellitus with diabetic polyneuropathy E11.42 Type 2 diabetes mellitus with diabetic polyneuropathy E11.42 Type II diabetes mellitus, uncontrolled E11.65 Ulcer of right foot with fat layer exposed L97.512 distal hallux Ulcer of right lower extremity with fat layer exposed L97.912 Chest pain (Resolved) R07.9 Ischemic cardiomyopathy I25.5 EF 45% Necrotizing soft tissue infection (Resolved) M79.89 Severe sepsis (Resolved) A41.9, R65.20 Hemoglobin A1c greater than 9.0% (Inactive) R73.09 12.2 Allergies Penicillins Allergy (Verified 08/31/20 22:02) Shortness of breath vancomycin Allergy (Verified 08/31/20 22:02) Itching metronidazole Adverse Reaction (Verified 08/31/20 22:02) Nausea OXYCONTIN Allergy (Uncoded 08/31/20 22:02) Shortness of breath Home Medications: Ambulatory Orders Medication Instructions Recorded Gabapentin [Neurontin] 900 mg PO TIDCM 09/20/18 Calcium Carbonate [Tums] 500 mg PO Q4H PRN PRN 04/02/19 Iron Polysaccharide Complex 150 mg PO DAILYCM #30 cap 05/14/19 [Ferrex 150] Paroxetine [Paxil] 20 mg PO QHS #30 tab 05/14/19 Pramipexole Di-HCl [Mirapex] 1.5 mg PO BID #90 tab 05/14/19 Acetaminophen [Tylenol Tablet] 650 mg PO Q6H PRN PRN #0 tab 06/16/19 Oxycodone HCl/Acetaminophen 1 ea PO BID PRN PRN 08/20/19 [Oxycodone-Acetaminophen 5-325] atorvastatin 80 mg tablet 80 mg PO QHS #90 tab 11/30/19 clopidogrel 75 mg tablet 75 mg PO DAILY #90 tab 11/30/19 isosorbide mononitrate 30 mg 30 mg PO DAILY #90 tab 11/30/19 tablet,extended release 24 hr Insulin Glargine [Lantus SoloStar 30 units SC BREAKFAST 08/31/20 Pen] Insulin Lispro [Humalog KwikPen] 20 unit SC TIDCM 08/31/20 Zolpidem Tartrate [Ambien 5 mg PO QHS PRN PRN 09/01/20 (Generic)] Surgical History: Surgical History (This Medical Record has been edited. Action required.) History of coronary artery stent placement (Resolved) Onset Date: 09/21/18 Z95.5 PCI-DARA mid LAD w/ 2.25 x 16 mm Promus Synergy, DARA prox LAD w/ 2.5 x 12 mm Promus Synergy 09/21/2018 Surgical History: angioplasty - with stent., - - Severel R foot toe amputations and I+Ds, BL carpal tunnel surgery 1994, right shoulder surgery in 1994, section x2, most recently LLE I+D. 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 Smoking Status: Never smoker Tobacco Use: Non-smoker Alcohol: None Drugs: None - *Family History Paternal History Items: - - Patient states her father when she was 5 years old, denies known medical history, denies known cardiac history. Maternal History Items: Cancer - Patient had a brother who had testicular cancer; and later cancer in his stomach., Diabetes, Hypertension, - - Her mother at the age of 67 to a blood clot to the brain. She had had multiple strokes preceding that. Patient had 3 brothers who had bypass surgery in their 50s. Sibling History Items: - - She has one brother who is secondary to cancer and she does not know what kind of cancer he had. She also has 3 brothers with a history of cardiovascular disease, stents and coronary artery bypass grafting. Review of Systems Constitutional: Denies: Chills, Fever Cardiovascular: Reports: Chest Pain Gastrointestinal: Denies: Nausea, Vomiting Musculoskeletal: Reports: Foot Pain. Denies: Back Pain Skin: Reports: Wounds Patient Problems: Active and Suspected Problems (This Medical Record has been edited. Action required.) Diabetic infection of left foot (Acute) Chest pain (Acute) - Physical Exam Vitals/I&O's: Vital Signs Temp Pulse Resp BP Pulse Ox 98.2 F 80 16 138/74 H 98 09/01/20 09:10 09/01/20 09:10 09/01/20 09:10 09/01/20 09:10 09/01/20 09:10 Oxygen Delivery Method Room Air Weight: 88.8 kg Body Mass Index (BMI) 31.6 Finger Stick Blood Glucose 91 Intake and Output for Last 24 Hours 08/30/20 08/31/20 09/01/20 23:59 23:59 23:59 Intake Total 1000 / 1000 1473.34 / 1473.34 Balance 1000 / 1000 1473.34 / 1473.34 General: Alert, Oriented x3, Cooperative, No apparent distress Extremities: No cyanosis, Capillary Refill Less than 3 Seconds, No Calf Tenderness, - - Large plantar foot ulceration sub residual 5th met base with significant nonviable tissue to margins and base, there is serous drainage, probes to fascia, no purulence, no crepitus, no fluctuance, no visible abscess, slight cellulitis around margins Skin: - - Small ulcerations to the lateral right ankle with no evidence of infection, no probe to bone, they are down to subcutaneous tissue layer. No other open lesions bilateral foot or ankle. Musculoskeletal: No Tenderness to Palpation of Joints or Extremities - to foot or ankle bilateral., - - Chronic charcot neuroarthropathy deformity bilateral. s/p 5th ray amputations bilateral foot. Psych/Mental Status: Appropriate, Alert and oriented to time, place, person, mood and affect Laboratory Results 08/31/20 18:23: WBC 11.7 H, RBC 3.34 L, Hgb 9.5 L, Hct 29.6 L, MCV 88.6, MCH 28.4, MCHC 32.1, RDW Std Deviation 41.9, RDW Coeff of Fior 13.0, Plt Count 455 H, MPV 11.1, Immature Gran % (Auto) 0.300, Neut % (Auto) 78.3 H, Lymph % (Auto) 15.1 L, Stephenson % (Auto) 4.7, Eos % (Auto) 1.3, Baso % (Auto) 0.3, Absolute Neuts (auto) 9.2 H, Absolute Lymphs (auto) 1.76, Nucleated RBC % 0 08/31/20 18:23: Sodium 138, Potassium 4.2, Chloride 105, Carbon Dioxide 22.0, Anion Gap 11, BUN 43 H, Creatinine 1.92 H, Estim Creat Clear Calc 30.99, Est GFR (MDRD) Af Amer 35 L, Est GFR (MDRD) Non-Af 29 L, BUN/Creatinine Ratio 22.4 H, Glucose 497 H*, Calcium 9.4, Troponin I < 0.015 08/31/20 18:23: D-Dimer Quant (PE/DVT) 1.34 H* 08/31/20 18:23: Magnesium 2.0 08/31/20 22:16: Troponin I < 0.015 08/31/20 22:19: POC Glucose 136 H 08/31/20 23:00: S.aureus Protein A PCR POSITIVE H, MRSA (PCR) Negative 09/01/20 00:48: Troponin I < 0.015 09/01/20 02:30: COVID-19 (LIUDMILA) Negative 09/01/20 04:25: Sodium 139, Potassium 3.9, Chloride 111 H, Carbon Dioxide 22.0, Anion Gap 6, BUN 37 H, Creatinine 1.27 H, Estim Creat Clear Calc 46.86, Est GFR (MDRD) Af Amer 56 L, Est GFR (MDRD) Non-Af 46 L, BUN/Creatinine Ratio 29.1 H, Glucose 248 H, Calcium 8.5, Total Bilirubin 0.20, AST 13 L, ALT 19, Alkaline Phosphatase 121 H, Total Protein 6.8, Albumin 2.7 L, Globulin 4.1, Albumin/Globulin Ratio 0.7 L, Triglycerides 194, Cholesterol 147, LDL Cholesterol 73, VLDL Cholesterol 39, HDL Cholesterol 35 L 09/01/20 04:25: Hemoglobin A1c 9.8 H 09/01/20 04:25: WBC 10.2, RBC 2.92 L, Hgb 8.2 L, Hct 25.9 L, MCV 88.7, MCH 28.1, MCHC 31.7 L, RDW Std Deviation 42.8, RDW Coeff of Fior 13.2, Plt Count 390, MPV 10.9, Immature Gran % (Auto) 0.200, Neut % (Auto) 72.8 H, Lymph % (Auto) 19.8, Stephenson % (Auto) 4.7, Eos % (Auto) 2.1, Baso % (Auto) 0.4, Absolute Neuts (auto) 7.5, Absolute Lymphs (auto) 2.03, Nucleated RBC % 0 09/01/20 04:29: POC Glucose 256 H 09/01/20 07:00: POC Glucose 267 H Current Medications Acetaminophen (Acetaminophen 325 Mg Tablet) 650 mg PO Q6H PRN PRN PRN Reason: Pain Score 1-10/Temp > 100.7 F Al Hydroxide/Mg Hydroxide (Mag Hydrox/Al Hydrox/Simeth 30 Ml Udc) 30 ml PO Q6H PRN PRN PRN Reason: Gastric Burning Albuterol Sulfate (Albuterol 2.5 Mg/3 Ml Vial.Neb.) 2.5 mg INHALATION Q2H PRN PRN PRN Reason: Dyspnea, wheezing Aspirin (Aspirin E.C. 81 Mg Tablet) 81 mg PO DAILY@0800 [facility] Last Admin: 09/01/20 06:19 Dose: 81 mg Documented by: Atorvastatin Calcium (Atorvastatin Calcium 80 Mg Tablet) 80 mg PO QHS [facility] Last Admin: 08/31/20 23:32 Dose: 80 mg Documented by: Clopidogrel Bisulfate (Clopidogrel Bisulfate 75 Mg Tablet) 75 mg PO DAILY [facility] Last Admin: 09/01/20 06:18 Dose: 75 mg Documented by: Diphenhydramine HCl (Diphenhydramine 50 Mg/Ml Syringe) 25 mg IV Q6H PRN PRN PRN Reason: ITCHING Enoxaparin Sodium (Enoxaparin 40 Mg/0.4 Ml Syringe) 40 mg SC DAILY [facility] Gabapentin (Gabapentin 300 Mg Capsule) 900 mg PO TIDCM [facility] Last Admin: 08/31/20 23:34 Dose: 900 mg Documented by: Guaifenesin (Guaifenesin 10 Ml Udc (200mg/10ml)) 20 ml PO Q4H PRN PRN PRN Reason: COUGH Hydralazine HCl (Hydralazine 20 Mg/Ml Vial) 10 mg IV Q4H PRN PRN PRN Reason: SBP > 160 Sodium Chloride () 1,000 mls @ 125 mls/hr IV .Q8H [facility] Last Infusion: 09/01/20 09:17 Dose: 0 mls/hr Documented by: Vancomycin IV Pharmacy to Dose (1 ea/ Sodium Chloride) 500 mls @ 250 mls/hr IV X1 PRN; Protocol PRN Reason: Rx to Dose Cefepime HCl 2 gm/ Sodium (Chloride) 100 mls @ 200 mls/hr IV Q12 [facility] Last Infusion: 09/01/20 01:15 Dose: Infused Documented by: Vancomycin HCl 1,250 mg/ (Sodium Chloride) 275 mls @ 167 mls/hr IV Q24H [facility] Insulin Glargine (Insulin Glargine 100 Units/Ml Pen) 30 units SC BID [facility] Last Admin: 08/31/20 23:31 Dose: 30 units Documented by: Insulin Human Lispro (Insulin Lispro 100 Unit/Ml Insuln.Pen) 20 unit SC TIDCM [facility] Last Admin: 09/01/20 09:16 Dose: Not Given Documented by: Insulin Human Lispro (Insulin Lispro 100 Unit/Ml Insuln.Pen) 0 unit SC ACHS [facility]; Protocol Last Admin: 09/01/20 07:00 Dose: Not Given Documented by: Isosorbide Mononitrate (Isosorbide Mononitrate 30 Mg Tablet) 30 mg PO DAILY [facility] Magnesium Hydroxide (Magnesium Hydroxide 30 Ml Udc) 30 ml PO DAILY PRN PRN PRN Reason: Constipation Melatonin (Melatonin 3 Mg Tablet) 3 mg PO QHS PRN PRN PRN Reason: INSOMNIA Morphine Sulfate (Morphine 2 Mg/Ml Syringe) 2 mg IV Q3H PRN PRN PRN Reason: Pain Score 6-10 Nitroglycerin (Nitroglycerin (Inpatient Use) 0.4 Mg Tab.Subl) 0.4 mg SUBLINGUAL Q5M PRN PRN Reason: CARDIAC/CHEST PAIN Nutritional Formula (Lactose Free) (Glucerna Shake 120 Ml Liquid) 120 ml PO 4X/DAY [facility] Ondansetron HCl (Ondansetron 4 Mg/2 Ml Vial) 4 mg IV Q8H PRN PRN PRN Reason: NAUSEA/VOMITING Oxycodone HCl (Oxycodone 5 Mg Tablet) 5 mg PO Q4H PRN PRN PRN Reason: Pain Score 4-5 Last Admin: 08/31/20 23:44 Dose: 5 mg Documented by: Paroxetine HCl (Paroxetine 20 Mg Tablet) 20 mg PO QHS [facility] Last Admin: 08/31/20 23:32 Dose: 20 mg Documented by: Polysaccharide Iron Complex (Iron Polysaccharide Complex 150 Mg Capsule) [facility] Pramipexole Dihydrochloride (Pramipexole Di-Hcl 1 Mg Tablet) 3 mg PO QHS [facility] Last Admin: 09/01/20 00:39 Dose: 3 mg Documented by: Prochlorperazine Edisylate (Prochlorperazine 10 Mg/2 Ml Vial) 5 mg IV Q4H PRN PRN PRN Reason: Breakthrough Nausea/Vomiting Psyllium Hydrophilic Mucilloid (Psyllium 1 Packet) 1 packet PO DAILY PRN PRN PRN Reason: Constipation Senna/Docusate Sodium (Senna/Docusate Sodium 1 Tablet) 2 tablet PO BID PRN PRN PRN Reason: Constipation Sodium Chloride (0.9% Saline Lock 10 Ml Syringe) 10 - 40 ml IV UD PRN PRN Reason: SALINE FLUSH Throat Lozenges (Benzocaine/Menthol 1 Lozenge) 1 lozenge MUCOUS MEM Q2H PRN PRN PRN Reason: SORE THROAT Zolpidem Tartrate (Zolpidem Tartrate 5 Mg Tablet) 5 mg PO QHS [facility] Last Admin: 09/01/20 00:39 Dose: 5 mg Documented by: Assessment/Plan All Active Problems (This Medical Record has been edited. Action required.) Diabetic infection of left foot (Acute) Chest pain (Acute) NSTEMI (non-ST elevated myocardial infarction) (Resolved 09/20/18) History of coronary artery stent placement (Resolved 09/21/18) Abscess of left foot (Resolved) Cellulitis of left foot (Resolved) Chest pain (Resolved) Diabetic foot infection (Resolved) Diarrhea (Resolved) Enteritis, Yersinia enterocolitica (Resolved) Hyperglycemia (Resolved) Intractable nausea and vomiting (Resolved) Malnutrition (Resolved) Necrotizing soft tissue infection (Resolved) Severe sepsis (Resolved) Left plantar foot ulceration down to fascia layer with possible underlying osteomyelitis 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 Left foot xrays reviewed, no gas, osteomyelitis unable to be ruled out. MRI was ordered for further evaluation as ulceration has been open for ~3 months, and does probe to deeper tissue. Excision debridement was preformed to the ulceration site in sharp fashion, no anesthesia was needed due to patient's neuropathy. Hemostasis was obtained using pressure and gauze. Cleansed with normal saline solution, and applied normal saline soln wet to dry gauze dressing and brando bandage. Post debridement the ulceration was measured: measured 3.5cm x 1.8cm and 0.8cm in depth. A culture has been obtained of the left foot ulceration and pending. Patient is on IV antibiotics at this time. New noninvasive lower extremity aterial studies were ordered. No weightbearing left foot. Keep foot elevated. Wound care right lateral ankle: small superficial ulcerations: Mepilex dressing changes. Regarding left foot further debridement may be needed pending MRI. Thank you for consultation, Podiatry will continue to follow closely.
--- NOTE | 2020-09-01 11:15 | CASEMGMT ---
KELSIE IRELAND assesment: Phone interview with patient for initial transition planning/care coordination assessment. KELSIE IRELAND introduced self and role at [facility], pt voices understanding and consents to assessment at this time. Pt is A/Ox4 at this time and answers all questions appropriately at this time. Pt states has been living with her daughter, Trisha Hernandez, after returning from [place], where she has been the last 8 months with her but did not some home with her, he lives in [place]. Care providers, pharmacy, and demographics verified/updated at this time. Presentation: Pt c/o left shoulder/neck pain Admitting dx: CP, Left foot DM wound PCP: [facility] Specialists: Markel, cardio; Fascione, podiatry Preferred Pharmacy: [facility] Insurance: [facility] Prescription Benefit: AnthR Living Will/HPOA: Pt states does not have LW/HPOA and declines AD info at this time. LNOK: Trisha Hernandez, daughter Living Arrangements: Pt states lives with daughter in 2 story home and states no concerns at home at this time. Pt states is independent with ADL's. Transportation: Pt states son/daughter drives and states no transportation concerns at this time. DME/HHC: Pt states has the following DME: crutches, w/c, rollator, BSC, and walker. Pt states no need for any further DME at this time. Pt states has had [facility] in the past and has been to the following SNF's: [facility], [facility], and [facility]. Pt states no concerns with going home at time of discharge. Pt states is disabled. Pt states does not smoke cigarettes or drink ETOH. Pt states no further concerns/needs at this time. CM to follow for PT/OT evals and any further discharge planning/needs. Advised pt to ask for CM if any further questions/concerns/needs arise, voices understanding. Pt Goal: Home Plan: Home, pending PT/OT evals. [place] KELSIE IRELAND
[2020-09-01] MEDS: Isosorbide Mononitrate 30 MG Tablet PO (11:35)
[2020-09-01] MEDS: Gabapentin 300 MG Capsule 900 MG PO ×2 (11:35→17:38)
[2020-09-01] MEDS: Iron Polysaccharide Complex 150 MG CAPSULE PO (11:35)
[2020-09-01] MEDS: 0.9% Saline Lock 10 ML Syringe IV ×2 (11:36→13:35)
[2020-09-01] MEDS: Insulin Lispro 100 UNIT/ML INSULN.PEN SC ×2 (11:45→20:29)
[2020-09-01] MEDS: Insulin Lispro 100 UNIT/ML INSULN.PEN 20 UNIT SC (11:46)
--- NOTE | 2020-09-01 12:38 | MRI_ITS ---
STUDY: MRI LEFT MIDFOOT REASON FOR EXAM: Female, 55 years old. left foot plantar wound half dollar size started from sore from sandal, I and D today hx of prev surg left foot which did completely heal TECHNIQUE: Standardized fat and water weighted pulse sequences were obtained in all 3 orthogonal planes. COMPARISON: Left foot x-ray dated August 31, 2020 FINDINGS: Large 5.81 x 1.70 cm open skin defect/wound on the lateral plantar aspect of the foot contains fluid and debris and can be a infected. The investing fascia and the plantar aspect of the foot beneath the fourth metatarsal bone encloses the complex fluid collection, and there is no demonstrated intramuscular extension or contact with the overlying bony structures. Mild cortical irregularity is present at the base and plantar and lateral aspect of the fifth metatarsal bone and cuboid which could be related to prior infection or sequela from previous trauma. Prior fifth metatarsal bone surgical resection. The phalanges of the fifth digit have also been previously resected. A small remnant of the fifth metatarsal bone remains. Postoperative susceptibility artifact is present region as well. No active bone marrow edema or cortical erosion is seen to suggest active osteomyelitis. Scattered degenerative changes are present navicular cuneiform articulations with subchondral cysts and reactive signal. Normal talonavicular articulation. Normal calcaneocuboid articulation. Normal intercuneiform articulations. Normal first tarsometatarsal articulation. Normal Lisfranc ligament. Normal second and third tarsometatarsal articulations. Normal cuboid fourth and cuboid fifth tarsometatarsal articulation. Normal tibialis anterior tendon. Normal extensor hallucis longus tendon. Normal extensor digitorum longus tendons. Normal peroneus longus tendon and distal insertion. Normal peroneus brevis tendon and distal insertion. There is diffuse atrophy of the intrinsic muscles of the foot consistent with a peripheral neuropathy. Mild subcutaneous edema is present around the foot. MRI/Lower Ext/No Jt/w/o IMPRESSION: 1. Large 5.81 x 1.70 cm open skin defect/wound on the lateral plantar aspect of the foot contains fluid and debris and can be a infected. The investing fascia and the plantar aspect of the foot beneath the fourth metatarsal bone encloses the complex fluid collection, and there is no demonstrated intramuscular extension or contact with the overlying bony structures. 2. Mild cortical irregularity is present at the base and plantar and lateral aspect of the fifth metatarsal bone and cuboid which could be related to prior infection or sequela from previous trauma. 3. No active bone marrow edema or cortical erosion is seen to suggest active osteomyelitis. Electronically Signed: Noel De Jesus MD at 20:36 EST , Service support ,
--- NOTE | 2020-09-01 12:40 | ART_ITS ---
Reason For Study: LEFT FOOT ULCER Procedure A bilateral lower extremity continuous wave Doppler with analog waveform analysis,segmental pressures,and ankle brachial indexes without exercise. Left Segmental Pressures Left brachial= 130mmHg. Left posterior tibial artery = 180mmHg. Left dorsalis pedis artery = 169mmHg. Left digit = 172 mmHg. The left dorsalis pedis waveforms are triphasic. The left posterior tibial artery waveforms are triphasic. Right Segmental Pressures Right brachial= NOT TAKEN DUE TO IV LOCATIONmmHg. Right posterior tibial artery = 171mmHg. Right dorsalis pedis artery = 166mmHg. Right digit = 161 mmHg. The right dorsalis pedis waveforms are triphasic. The right posterior tibial artery waveforms are triphasic. Indices The right ankle brachial index by the dorsalis pedis is 1.28. The right ankle brachial index by the posterior tibial artery is 1.32. The right digital-brachial index is 1.24. The left ankle brachial index by the dorsalis pedis is 1.3. The left ankle brachial index by the posterior tibial artery is 1.38. The left digital-brachial index is 1.32. Interpretation Summary Normal bilateral lower extremity resting ankle-brachial indices and triphasic waveforms. Normal bilateral lower extremity volume pulse recordings and digital PPG's. Ordering Physician: Jefe Guadarrama Referring Physician: Ashely Barakat Performed By: Caren Good RVT, RDCS
[2020-09-01 12:50] LABS: Bedside Glucose 254 mg/dL (70-110)
--- NOTE | 2020-09-01 13:19 | STRESSREP ---
Stress Test Report Pharmacologic myocardial perfusion stress test. 55-year-old lady with a history of coronary artery disease status post angioplasty and stenting of the proximal and mid LAD with residual distal disease. Stress protocol: Resting EKG demonstrates normal sinus rhythm with a rate of 81 bpm normal intervals are noted resting blood pressure is 142/84 mmHg. 0.4 mg of regadenoson was infused per usual protocol followed by rapid venous saline flush injection continuous EKG monitoring was performed. The maximum heart rate was 93 bpm which was 56% of max impacted heart rate the maximum workload was 1 metabolic equivalent. The peak blood pressure was 142/[address] or T wave changes were noted to suggest abnormal flow reserve. Myocardial perfusion protocol. 11.1 mCi of technetium 99m sestamibi was injected at rest. 0.4 mg of regadenoson was infused per usual protocol. At peak infusion 33.5 mCi of technetium 99m sestamibi was injected stress images were obtained stress and rest images were reconstructed and compared in the short axis vertical long horizontal long axis. Gated images were also obtained Perfusion SPECT analysis: Review of the stress images demonstrate reduction of uptake noted in the mid to distal anterior wall. This appears to be present on the stress and rest images to a similar extent. A previous infarct in this area cannot be completely excluded. Breast wall attenuation is also possible. No obvious reversibility is noted to suggest ischemia. The rest of the ray appear to be well perfused. Gated SPECT analysis: The gated ejection fraction is 57%. Conclusion: Pharmacologic myocardial perfusion stress test with evidence of previous anterior myocardial infarct. Preserved ejection fraction.
--- NOTE | 2020-09-01 13:32 | PCM.RX.CS ---
Consult Pharmacy has been consulted to manage selected antiobiotic: Vancomycin Type of Consult: Follow-up Labs: Sodium 139 mmol/L (136-145) 09/01/20 04:25 Potassium 3.9 mmol/L (3.5-5.1) 09/01/20 04:25 Chloride 111 mmol/L (98-107) H 09/01/20 04:25 Carbon Dioxide 22.0 mmol/L (21.0-32.0) 09/01/20 04:25 Anion Gap 6 (5-15) 09/01/20 04:25 BUN 37 mg/dL (7-18) H 09/01/20 04:25 Creatinine 1.27 mg/dL (0.55-1.02) H 09/01/20 04:25 Est GFR (MDRD) Af Amer 56 mL/min (>60) L 09/01/20 04:25 Est GFR (MDRD) Non-Af 46 mL/min (>60) L 09/01/20 04:25 BUN/Creatinine Ratio 29.1 RATIO (10-20) H 09/01/20 04:25 Glucose 248 mg/dL (74-106) H 09/01/20 04:25 Microbiology: Microbiology 08/31/20 23:00 Wound - Left Foot Gram Stain - Final Goal Trough: 15-20 mcg/mL Pharmacy Plan for Drug Dosing: DAILY ASSESSMENT Current Vancomcyin Dose: 1250mg q24h @ 0200 Number of Doses Received: 2000mg x1 09/01 at 0200 Current Renal Function: SrCr 1.27 Renal Function Trend: SrCr decreased from 1.92 upon admission Lab/Micro: Any Change in Vanc Plan: change Vanco dose to 750mg q12h starting 09/01 at 1400 due to improved renal function Pending Level: 09/02 at 1330 Pharmacy Service will continue to monitor and adjust dosing as required. Follow-Up Labs: Trough Vancomycin - 09/02 @ 1330
[2020-09-01] MEDS: Morphine 2 MG/ML Syringe IV (13:35)
[2020-09-01] MEDS: 0.9% Normal Saline 1,000 ML 125 ML IV (14:04)
--- NOTE | 2020-09-01 14:57 | VDLE_ITS ---
Reason For Study: Edema Procedure LEFT This is a venous duplex using B-mode, color GSV is normal. flow and spectral Doppler. CFV is compressible, spontaneous, phasic, Exam performed portable in patient room. competent, and demonstrates normal A preliminary report was called and/or faxed augmentation. to [employer]NAGER. FV is compressible, spontaneous, phasic, competent and demonstrates normal augmentation. POP V is compressible, spontaneous, phasic, competent and demonstrates normal augmentation. T/P Trunk is compressible. PTV is compressible. LT PerV is compressible. Interpretation Summary There is no evidence of left lower extremity deep vein thrombosis. Left great saphenous vein appears patent and compressible segmentally. Ordering Physician: Kali Prado Referring Physician: MD Jeaneth Raúl Performed By: Erika Tubbs RVT
[2020-09-01] MEDS: Pantoprazole Sodium 40 MG Tablet PO (15:30)
[2020-09-01] MEDS: Enoxaparin 40 MG/0.4 ML Syringe SC (15:30)
--- NOTE | 2020-09-01 16:14 | PN_ITS ---
Patient Problems: Active and Suspected Problems (This Medical Record has been edited. Action required.) Diabetic infection of left foot (Acute) Chest pain (Acute) Reason for Visit: chest pain Subjective: still w chest pain and RIVERA. Vitals/I&O's: Vital Signs Temp Pulse Resp BP Pulse Ox 36.8 C 80 16 134/75 H 98 09/01/20 11:31 09/01/20 15:00 09/01/20 11:31 09/01/20 11:31 09/01/20 11:31 Oxygen Flow Rate (L/min) 2 Oxygen Delivery Method Room Air Weight: 88.8 kg Body Mass Index (BMI) 31.6 Finger Stick Blood Glucose 91 Intake and Output for Last 24 Hours 08/30/20 08/31/20 09/01/20 23:59 23:59 23:59 Intake Total 1000 / 1000 2166.67 / 2166.67 Balance 1000 / 1000 2166.67 / 2166.67 General: Alert, No apparent distress HEENT: Atraumatic, Normocephalic Oral: Moist Mucosa, No Gingival or Mucosal Lesions/ Ulcerations Neck: No Nodes, Thyroid Normal Size and Texture Lungs: Clear to auscultation, Normal air movement, No rhonchi, No wheeze, No rales Cardiovascular: Regular rate, Regular Rhythm, Normal S1, Normal S2 Abdomen: Bowel Sounds Present, Soft, Non Tender, Non-Distended, No Hepato- splenomegaly Extremities: No edema, No Calf Tenderness Musculoskeletal: - - reproducible chest pain Psych/Mental Status: Normal Affect, Appropriate Microbiology Past 72 Hours 08/31/20 23:00 Wound - Left Foot Gram Stain - Final Laboratory Results 08/31/20 18:23: WBC 11.7 H, RBC 3.34 L, Hgb 9.5 L, Hct 29.6 L, MCV 88.6, MCH 28.4, MCHC 32.1, RDW Std Deviation 41.9, RDW Coeff of Fior 13.0, Plt Count 455 H, MPV 11.1, Immature Gran % (Auto) 0.300, Neut % (Auto) 78.3 H, Lymph % (Auto) 15.1 L, [place] % (Auto) 4.7, Eos % (Auto) 1.3, Baso % (Auto) 0.3, Absolute Neuts (auto) 9.2 H, Absolute Lymphs (auto) 1.76, Nucleated RBC % 0 08/31/20 18:23: Sodium 138, Potassium 4.2, Chloride 105, Carbon Dioxide 22.0, Anion Gap 11, BUN 43 H, Creatinine 1.92 H, Estim Creat Clear Calc 30.99, Est GFR (MDRD) Af Amer 35 L, Est GFR (MDRD) Non-Af 29 L, BUN/Creatinine Ratio 22.4 H, Glucose 497 H*, Calcium 9.4, Troponin I < 0.015 08/31/20 18:23: D-Dimer Quant (PE/DVT) 1.34 H* 08/31/20 18:23: Magnesium 2.0 08/31/20 22:16: Troponin I < 0.015 08/31/20 22:19: POC Glucose 136 H 08/31/20 23:00: S.aureus Protein A PCR POSITIVE H, MRSA (PCR) Negative 09/01/20 00:48: Troponin I < 0.015 09/01/20 02:30: COVID-19 (LIUDMILA) Negative 09/01/20 04:25: Sodium 139, Potassium 3.9, Chloride 111 H, Carbon Dioxide 22.0, Anion Gap 6, BUN 37 H, Creatinine 1.27 H, Estim Creat Clear Calc 46.86, Est GFR (MDRD) Af Amer 56 L, Est GFR (MDRD) Non-Af 46 L, BUN/Creatinine Ratio 29.1 H, Glucose 248 H, Calcium 8.5, Total Bilirubin 0.20, AST 13 L, ALT 19, Alkaline Phosphatase 121 H, Total Protein 6.8, Albumin 2.7 L, Globulin 4.1, Albumin/Globulin Ratio 0.7 L, Triglycerides 194, Cholesterol 147, LDL Cholesterol 73, VLDL Cholesterol 39, HDL Cholesterol 35 L 09/01/20 04:25: Hemoglobin A1c 9.8 H 09/01/20 04:25: WBC 10.2, RBC 2.92 L, Hgb 8.2 L, Hct 25.9 L, MCV 88.7, MCH 28.1, MCHC 31.7 L, RDW Std Deviation 42.8, RDW Coeff of Fior 13.2, Plt Count 390, MPV 10.9, Immature Gran % (Auto) 0.200, Neut % (Auto) 72.8 H, Lymph % (Auto) 19.8, [place] % (Auto) 4.7, Eos % (Auto) 2.1, Baso % (Auto) 0.4, Absolute Neuts (auto) 7.5, Absolute Lymphs (auto) 2.03, Nucleated RBC % 0 09/01/20 04:29: POC Glucose 256 H 09/01/20 07:00: POC Glucose 267 H 09/01/20 11:29: POC Glucose 254 H Current Medications Acetaminophen (Acetaminophen 325 Mg Tablet) 650 mg PO Q6H PRN PRN PRN Reason: Pain Score 1-10/Temp > 100.7 F Al Hydroxide/Mg Hydroxide (Mag Hydrox/Al Hydrox/Simeth 30 Ml Udc) 30 ml PO Q6H PRN PRN PRN Reason: Gastric Burning Albuterol Sulfate (Albuterol 2.5 Mg/3 Ml Vial.Neb.) 2.5 mg INHALATION Q2H PRN PRN PRN Reason: Dyspnea, wheezing Aspirin (Aspirin E.C. 81 Mg Tablet) 81 mg PO DAILY@0800 [facility] Last Admin: 09/01/20 06:19 Dose: 81 mg Documented by: Atorvastatin Calcium (Atorvastatin Calcium 80 Mg Tablet) 80 mg PO QHS [facility] Last Admin: 08/31/20 23:32 Dose: 80 mg Documented by: Clopidogrel Bisulfate (Clopidogrel Bisulfate 75 Mg Tablet) 75 mg PO DAILY [facility] Last Admin: 09/01/20 06:18 Dose: 75 mg Documented by: Diphenhydramine HCl (Diphenhydramine 50 Mg/Ml Syringe) 25 mg IV Q6H PRN PRN PRN Reason: ITCHING Enoxaparin Sodium (Enoxaparin 40 Mg/0.4 Ml Syringe) 40 mg SC DAILY [facility] Last Admin: 09/01/20 15:30 Dose: 40 mg Documented by: Gabapentin (Gabapentin 300 Mg Capsule) 900 mg PO TIDCM [facility] Last Admin: 09/01/20 13:02 Dose: Not Given Documented by: Guaifenesin (Guaifenesin 10 Ml Udc (200mg/10ml)) 20 ml PO Q4H PRN PRN PRN Reason: COUGH Hydralazine HCl (Hydralazine 20 Mg/Ml Vial) 10 mg IV Q4H PRN PRN PRN Reason: SBP > 160 Vancomycin IV Pharmacy to Dose (1 ea/ Sodium Chloride) 500 mls @ 250 mls/hr IV X1 PRN; Protocol PRN Reason: Rx to Dose Cefepime HCl 2 gm/ Sodium (Chloride) 100 mls @ 200 mls/hr IV Q12 [facility] Last Infusion: 09/01/20 13:02 Dose: Infused Documented by: Vancomycin HCl 750 mg/ Sodium (Chloride) 265 mls @ 250 mls/hr IV Q12H [facility] Last Infusion: 09/01/20 15:10 Dose: Infused Documented by: Insulin Glargine (Insulin Glargine 100 Units/Ml Pen) 30 units SC BID [facility] Last Admin: 09/01/20 11:37 Dose: 30 units Documented by: Insulin Human Lispro (Insulin Lispro 100 Unit/Ml Insuln.Pen) 20 unit SC TIDCM [facility] Last Admin: 09/01/20 11:46 Dose: 20 units Documented by: Insulin Human Lispro (Insulin Lispro 100 Unit/Ml Insuln.Pen) 0 unit SC ACHS [facility]; Protocol Last Admin: 09/01/20 11:45 Dose: 6 units Documented by: Isosorbide Mononitrate (Isosorbide Mononitrate 30 Mg Tablet) 30 mg PO DAILY [facility] Last Admin: 09/01/20 11:35 Dose: 30 mg Documented by: Magnesium Hydroxide (Magnesium Hydroxide 30 Ml Udc) 30 ml PO DAILY PRN PRN PRN Reason: Constipation Melatonin (Melatonin 3 Mg Tablet) 3 mg PO QHS PRN PRN PRN Reason: INSOMNIA Nitroglycerin (Nitroglycerin (Inpatient Use) 0.4 Mg Tab.Subl) 0.4 mg SUBLINGUAL Q5M PRN PRN Reason: CARDIAC/CHEST PAIN Nutritional Formula (Nutritional Supplement (Ted) Packet) 1 packet PO BIDCM [facility] Nutritional Formula (Lactose Free) (Glucerna Shake 120 Ml Liquid) 120 ml PO 4X/DAY [facility] Last Admin: 09/01/20 14:05 Dose: Not Given Documented by: Ondansetron HCl (Ondansetron 4 Mg/2 Ml Vial) 4 mg IV Q8H PRN PRN PRN Reason: NAUSEA/VOMITING Oxycodone HCl (Oxycodone 5 Mg Tablet) 5 mg PO Q4H PRN PRN PRN Reason: Pain Score 4-5 Last Admin: 08/31/20 23:44 Dose: 5 mg Documented by: Pantoprazole Sodium (Pantoprazole Sodium 40 Mg Tablet) 40 mg PO DAILY [facility] Paroxetine HCl (Paroxetine 20 Mg Tablet) 20 mg PO QHS [facility] Last Admin: 08/31/20 23:32 Dose: 20 mg Documented by: Polysaccharide Iron Complex (Iron Polysaccharide Complex 150 [facility]) [facility] Admin: 09/01/20 11:35 Dose: 150 mg Documented by: Pramipexole Dihydrochloride (Pramipexole Di-Hcl 1 Mg Tablet) 3 mg PO QHS [facility] Last Admin: 09/01/20 00:39 Dose: 3 mg Documented by: Prochlorperazine Edisylate (Prochlorperazine 10 Mg/2 Ml Vial) 5 mg IV Q4H PRN PRN PRN Reason: Breakthrough Nausea/Vomiting Psyllium Hydrophilic Mucilloid (Psyllium 1 Packet) 1 packet PO DAILY PRN PRN PRN Reason: Constipation Senna/Docusate Sodium (Senna/Docusate Sodium 1 Tablet) 2 tablet PO BID PRN PRN PRN Reason: Constipation Sodium Chloride (0.9% Saline Lock 10 Ml Syringe) 10 - 40 ml IV UD PRN PRN Reason: SALINE FLUSH Last Admin: 09/01/20 13:35 Dose: 10 ml Documented by: Throat Lozenges (Benzocaine/Menthol 1 Lozenge) 1 lozenge MUCOUS MEM Q2H PRN PRN PRN Reason: SORE THROAT Zolpidem Tartrate (Zolpidem Tartrate 5 Mg Tablet) 5 mg PO QHS [facility] Last Admin: 09/01/20 00:39 Dose: 5 mg Documented by: STROKE Vital Signs/Narrative: Vital Signs Pulse 09/01/20 15:00 80 Medical Necessity - Tobacco Use Smoking Status: Never smoker Tobacco Use: Non-smoker Assessment/Plan All Active Problems (This Medical Record has been edited. Action required.) Diabetic infection of left foot (Acute) Chest pain (Acute) NSTEMI (non-ST elevated myocardial infarction) (Resolved 09/20/18) History of coronary artery stent placement (Resolved 09/21/18) Abscess of left foot (Resolved) Cellulitis of left foot (Resolved) Chest pain (Resolved) Diabetic foot infection (Resolved) Diarrhea (Resolved) Enteritis, Yersinia enterocolitica (Resolved) Hyperglycemia (Resolved) Intractable nausea and vomiting (Resolved) Malnutrition (Resolved) Necrotizing soft tissue infection (Resolved) Severe sepsis (Resolved) 1. chest pain: stress negative. suspect costochondritis v reflux. Reviewed CTA and stress with patient. Started PPI. may need GI follow up. 2. Left foot diabetic infected ulcer: s/p debridement. MRI ordered. 3. LLE edema: improved per patient. Check duplex. 4. DM2, uncontrolled. A1c 9.8. On glargine and SSI log with meals 5. VTE prophylaxis: enoxaparin. Greater than 35 minutes of which greater than 50% of the time was reviewing the patient's CAT scan, stress test, possibilities for chest pain and further recommendations pertaining to that. Inpatient E&M: [id number] [facility] L[facility]
[2020-09-01 16:50] LABS: Bedside Glucose 66 mg/dL (70-110)
[2020-09-01 16:50] LABS: Bedside Glucose 85 mg/dL (70-110)
[2020-09-01] MEDS: Glucerna Shake 120 ML LIQUID PO (17:38)
[2020-09-01 20:30] LABS: Bedside Glucose 251 mg/dL (70-110)
[2020-09-01] MEDS: Atorvastatin Calcium 80 MG Tablet PO (21:39)
[2020-09-01] MEDS: Paroxetine 20 MG Tablet PO (21:40)
[2020-09-02] VITALS (13 sets, daily range): BP systolic 98–183; BP diastolic 50–92; PULSE 72–104; RESP 16–18; TEMP 36.8–37.3; O2SAT 97–99
[2020-09-02 06:50] LABS: Bedside Glucose 273 mg/dL (70-110)
[2020-09-02 08:02] LABS: Basophil# 0.04 X10^3/uL; Basophil% 0.5 % (0-1); Eosinophil# 0.18 X10^3/uL; Eosinophils% 2.1 % (0-5); Hematocrit 25.2 % (37-47); Hemoglobin 7.7 g/dL (12.0-15.0); Lymphocyte % 10.6 % (19-41); Mean Corp Hgb Conc 30.6 g/dL (32-36); Mean Corpuscular Hgb 27.9 pg (27.0-32.0); Mean Corpuscular Volume 91.3 fL (81-99); Mean Platelet Vol. 10.8 fl (6.2-12.0); Monocyte# 0.38 X10^3/uL; Monocyte% 4.5 % (0-10); NRBC Flagged by Analyzer 0 % (0-5); Neutrophil # 6.99 X10^3/uL (2.7-7.7); Neutrophil % 82.1 % (47-70); Platelet Count 355 K/mm3 (150-450); RBC Distribution Width CV 13.2 % (11.6-14.6); RBC Distribution Width SD 43.7 fl (35.1-43.9); Red Blood Count 2.76 M/mm3 (4.2-5.4); White Blood Count 8.5 K/mm3 (4.4-11.0)
[2020-09-02 08:21] LABS: Anion Gap 6 (5-15); BUN 24 mg/dL (7-18); BUN/Creat Ratio 16.8 RATIO (10-20); Calcium,Total 8.1 mg/dL (8.5-10.1); Chloride 113 mmol/L (98-107); Creatinine, Serum 1.43 mg/dL (0.55-1.02); EST Glomerular Filtration Rate 41 mL/min (>60); Est Glom Filt Rate - Afr Amer 49 mL/min (>60); Estimated Creatinine Clearance 41.61 ml/min; Glucose 264 mg/dL (74-106); Potassium 4.2 mmol/L (3.5-5.1); Sodium Level 139 mmol/L (136-145)
[2020-09-02] MEDS: Insulin Lispro 100 UNIT/ML INSULN.PEN 20 UNIT SC ×2 (09:22→16:51)
[2020-09-02] MEDS: Glucerna Shake 120 ML LIQUID PO ×4 (09:23→21:42)
[2020-09-02] MEDS: Insulin Lispro 100 UNIT/ML INSULN.PEN SC ×2 (09:23→16:51)
[2020-09-02] MEDS: Iron Polysaccharide Complex 150 MG CAPSULE PO (09:24)
[2020-09-02] MEDS: Gabapentin 300 MG Capsule 900 MG PO ×3 (09:24→16:51)
[2020-09-02] MEDS: Aspirin E.C. 81 MG Tablet PO (09:24)
[2020-09-02] MEDS: Isosorbide Mononitrate 30 MG Tablet PO (09:24)
[2020-09-02 09:25] LABS: Bedside Glucose 321 mg/dL (70-110)
[2020-09-02] MEDS: Enoxaparin 40 MG/0.4 ML Syringe SC (09:25)
[2020-09-02] MEDS: Pantoprazole Sodium 40 MG Tablet PO (09:25)
[2020-09-02] MEDS: Clopidogrel Bisulfate 75 MG Tablet PO (09:25)
[2020-09-02] MEDS: 0.9% Saline Lock 10 ML Syringe IV ×3 (09:32→21:42)
--- NOTE | 2020-09-02 11:51 | NURSING ---
wound photo: left plantar foot
--- NOTE | 2020-09-02 13:39 | PN_ITS ---
<NicholasValencia SKI TOW OPERATOR - Last Filed: 09/02/20 14:00> Patient Problems: Active and Suspected Problems (This Medical Record has been edited. Action req uired.) Diabetic infection of left foot (Acute) Chest pain (Acute) Subjective: Patient seen and examined. Denies further chest pain. Denies fever, chills. Denies other symptoms or complaints. - Physical Exam Vitals/I&O's: Vital Signs Temp Pulse Resp BP Pulse Ox 98.8 F 94 16 183/91 H 98 09/02/20 09:20 09/02/20 09:20 09/02/20 09:20 09/02/20 09:20 09/02/20 09:59 Oxygen Flow Rate (L/min) 2 Oxygen Delivery Method Room Air Weight: 201 lb 15.095 oz Body Mass Index (BMI) 31.6 Finger Stick Blood Glucose 91 Intake and Output for Last 24 Hours 08/31/20 09/01/20 09/02/20 23:59 23:59 23:59 Intake Total 1000 / 1000 3106.67 / 3106.67 1025 / 1025 Balance 1000 / 1000 3106.67 / 3106.67 1025 / 1025 General: Alert, Oriented x3, Cooperative HEENT: Atraumatic, PERRLA, EOMI, Normocephalic Neck: Supple, No JVD, Negative Carotid Bruits Lungs: Clear to auscultation, Normal air movement Cardiovascular: Regular rate, No murmurs Abdomen: Bowel Sounds Present, Soft, Non Tender, Non-Distended Extremities: No clubbing, No cyanosis, No edema, Capillary Refill Less than 3 Seconds Skin: - - Left plantar foot wound, dressing intact. Right lateral ankle ulcerations. Musculoskeletal: No Tenderness to Palpation of Joints or Extremities Neurological: Cranial nerves II-XII grossly intact, Neuro grossly intact Psych/Mental Status: Normal Affect, Appropriate 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 Culture - Preliminary GNR lactose 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 Beta hemolytic organism Gram positive organism Laboratory Results 09/01/20 16:07: POC Glucose 66 L 09/01/20 16:23: POC Glucose 85 09/01/20 20:22: POC Glucose 251 H 09/02/20 06:33: POC Glucose 273 H 09/02/20 06:55: WBC 8.5, RBC 2.76 L, Hgb 7.7 L, Hct 25.2 L, MCV 91.3, MCH 27.9, MCHC 30.6 L, RDW Std Deviation 43.7, RDW Coeff of Fior 13.2, Plt Count 355, MPV 10.8, Immature Gran % (Auto) 0.200, Neut % (Auto) 82.1 H, Lymph % (Auto) 10.6 L, Oliver % (Auto) 4.5, Eos % (Auto) 2.1, Baso % (Auto) 0.5, Absolute Neuts (auto) 7.0, Absolute Lymphs (auto) 0.90, Nucleated RBC % 0 09/02/20 06:55: Sodium 139, Potassium 4.2, Chloride 113 H, Carbon Dioxide 20.0 L , Anion Gap 6, BUN 24 H, Creatinine 1.43 H, Estim Creat Clear Calc 41.61, Est GFR (MDRD) Af Amer 49 L, Est GFR (MDRD) Non-Af 41 L, BUN/Creatinine Ratio 16.8, Glucose 264 H, Calcium 8.1 L 09/02/20 09:18: POC Glucose 321 H Current Medications Acetaminophen (Acetaminophen 325 Mg Tablet) 650 mg PO Q6H PRN PRN PRN Reason: Pain Score 1-10/Temp > 100.7 F Al Hydroxide/Mg Hydroxide (Mag Hydrox/Al Hydrox/Simeth 30 Ml Udc) 30 ml PO Q6H PRN PRN PRN Reason: Gastric Burning Albuterol Sulfate (Albuterol 2.5 Mg/3 Ml Vial.Neb.) 2.5 mg INHALATION Q2H PRN PRN PRN Reason: Dyspnea, wheezing Aspirin (Aspirin E.C. 81 Mg Tablet) 81 mg PO DAILY@0800 [facility] Last Admin: 09/02/20 09:24 Dose: 81 mg Documented by: Atorvastatin Calcium (Atorvastatin Calcium 80 Mg Tablet) 80 mg PO QHS [facility] Last Admin: 09/01/20 21:39 Dose: 80 mg Documented by: Clopidogrel Bisulfate (Clopidogrel Bisulfate 75 Mg Tablet) 75 mg PO DAILY [facility] Last Admin: 09/02/20 09:25 Dose: 75 mg Documented by: Diphenhydramine HCl (Diphenhydramine 50 Mg/Ml Syringe) 25 mg IV Q6H PRN PRN PRN Reason: ITCHING Enoxaparin Sodium (Enoxaparin 40 Mg/0.4 Ml Syringe) 40 mg SC DAILY [facility] Last Admin: 09/02/20 09:25 Dose: 40 mg Documented by: Gabapentin (Gabapentin 300 Mg Capsule) 900 mg PO TIDCM [facility] Last Admin: 09/02/20 11:21 Dose: 900 mg Documented by: Guaifenesin (Guaifenesin 10 Ml Udc (200mg/10ml)) 20 ml PO Q4H PRN PRN PRN Reason: COUGH Hydralazine HCl (Hydralazine 20 Mg/Ml Vial) 10 mg IV Q4H PRN PRN PRN Reason: SBP > 160 Vancomycin IV Pharmacy to Dose (1 ea/ Sodium Chloride) 500 mls @ 250 mls/hr IV X1 PRN; Protocol PRN Reason: Rx to Dose Cefepime HCl 2 gm/ Sodium (Chloride) 100 mls @ 200 mls/hr IV Q12 [facility] Last Infusion: 09/02/20 10:35 Dose: Infused Documented by: Vancomycin HCl 750 mg/ Sodium (Chloride) 265 mls @ 250 mls/hr IV Q12H [facility] Last Infusion: 09/02/20 04:05 Dose: Infused Documented by: Insulin Glargine (Insulin Glargine 100 Units/Ml Pen) 30 units SC BID [facility] Last Admin: 09/02/20 09:23 Dose: 30 units Documented by: Insulin Human Lispro (Insulin Lispro 100 Unit/Ml Insuln.Pen) 20 unit SC TIDCM [facility] Last Admin: 09/02/20 11:15 Dose: Not Given Documented by: Insulin Human Lispro (Insulin Lispro 100 Unit/Ml Insuln.Pen) 0 unit SC ACHS [facility]; Protocol Last Admin: 09/02/20 11:07 Dose: Not Given Documented by: Isosorbide Mononitrate (Isosorbide Mononitrate 30 Mg Tablet) 30 mg PO DAILY [facility] Last Admin: 09/02/20 09:24 Dose: 30 mg Documented by: Magnesium Hydroxide (Magnesium Hydroxide 30 Ml Udc) 30 ml PO DAILY PRN PRN PRN Reason: Constipation Melatonin (Melatonin 3 Mg Tablet) 3 mg PO QHS PRN PRN PRN Reason: INSOMNIA Nitroglycerin (Nitroglycerin (Inpatient Use) 0.4 Mg Tab.Subl) 0.4 mg SUBLINGUAL Q5M PRN PRN Reason: CARDIAC/CHEST PAIN Nutritional Formula (Nutritional Supplement (Ted) Packet) [facility] Last Admin: 09/02/20 09:25 Dose: Not Given Documented by: Nutritional Formula (Lactose Free) (Glucerna Shake 120 Ml Liquid) 120 ml PO 4X/DAY [facility] Last Admin: 09/02/20 09:23 Dose: 120 ml Documented by: Ondansetron HCl (Ondansetron 4 Mg/2 Ml Vial) 4 mg IV Q8H PRN PRN PRN Reason: NAUSEA/VOMITING Oxycodone HCl (Oxycodone 5 Mg Tablet) 5 mg PO Q4H PRN PRN PRN Reason: Pain Score 4-5 Last Admin: 08/31/20 23:44 Dose: 5 mg Documented by: Pantoprazole Sodium (Pantoprazole Sodium 40 Mg Tablet) 40 mg PO DAILY [facility] Last Admin: 09/02/20 09:25 Dose: 40 mg Documented by: Paroxetine HCl ([facility] 20 Mg [facility]t) [facility] Last Admin: 09/01/20 21:40 Dose: 20 mg Documented by: Polysaccharide Iron Complex (Iron Polysaccharide Complex 150 Mg Capsule) [facility] Last Admin: 09/02/20 09:24 Dose: 150 mg Documented by: Pramipexole Dihydrochloride (Pramipexole Di-Hcl 1 Mg Tablet) 3 mg PO QHS [facility] Last Admin: 09/01/20 21:38 Dose: 3 mg Documented by: Prochlorperazine Edisylate (Prochlorperazine 10 Mg/2 Ml Vial) 5 mg IV Q4H PRN PRN PRN Reason: Breakthrough Nausea/Vomiting Psyllium Hydrophilic Mucilloid (Psyllium 1 Packet) 1 packet PO DAILY PRN PRN PRN Reason: Constipation Senna/Docusate Sodium (Senna/Docusate Sodium 1 Tablet) 2 tablet PO BID PRN PRN PRN Reason: Constipation Sodium Chloride (0.9% Saline Lock 10 Ml Syringe) 10 - 40 ml IV UD PRN PRN Reason: SALINE FLUSH Last Admin: 09/02/20 11:01 Dose: 10 ml Documented by: Throat Lozenges (Benzocaine/Menthol 1 Lozenge) 1 lozenge MUCOUS MEM Q2H PRN PRN PRN Reason: SORE THROAT Zolpidem Tartrate (Zolpidem Tartrate 5 Mg Tablet) 5 mg PO QHS [facility] Last Admin: 09/01/20 21:39 Dose: 5 mg Documented by: Medical Necessity - Tobacco Use Smoking Status: Never smoker Tobacco Use: Non-smoker Assessment/Plan All Active Problems (This Medical Record has been edited. Action required.) Diabetic infection of left foot (Acute) Chest pain (Acute) NSTEMI (non-ST elevated myocardial infarction) (Resolved 09/20/18) History of coronary artery stent placement (Resolved 09/21/18) Abscess of left foot (Resolved) Cellulitis of left foot (Resolved) Chest pain (Resolved) Diabetic foot infection (Resolved) Diarrhea (Resolved) Enteritis, Yersinia enterocolitica (Resolved) Hyperglycemia (Resolved) Intractable nausea and vomiting (Resolved) Malnutrition (Resolved) Necrotizing soft tissue infection (Resolved) Severe sepsis (Resolved) 1. Atypical chest pain, ACS ruled out-stress test and CTA negative. Initiated on PPI. Patient denies further chest pain. Follow-up with PCP. GI referral if recurrent pain. 2. Left plantar foot diabetic infected ulcer-podiatry and wound RN following. Excisional debridement per podiatry. Continue IV cefepime and IV vancomycin pending final cultures. Dressing changes per orders. MRI without osteo. 3. Chronic kidney disease stage III-appears baseline. 4. Chronic normocytic anemia/iron deficiency anemia-slightly below baseline. Trend CBC. Continue iron supplementation. 5. CAD with history of PCI-continue aspirin, Plavix, statin. 6. Type 2 diabetes [id number] with sliding scale insulin. Continue long-acting regimen. Hemoglobin A1c 9.8%. 7. Hypertension-stable, continue home regimen. 8. Hyperlipidemia-continue statin. 9. Anxiety/depression-continue Paxil. 10. Restless leg syndrome-on Mirapex. DVT prophylaxis-Lovenox subcu This patient was seen by BRIAN Mathews under the supervision of Dr. Prado. <Kali Prado - Last Filed: 09/02/20 15:13> Subjective: chest pain better. - Physical Exam Vitals/I&O's: Vital Signs Temp Pulse Resp BP Pulse Ox 37.1 C 100 16 183/91 H 98 09/02/20 09:20 09/02/20 15:00 09/02/20 09:20 09/02/20 09:20 09/02/20 09:59 Oxygen Flow Rate (L/min) 2 Oxygen Delivery Method Room Air Weight: 91.6 kg Body Mass Index (BMI) 31.6 Finger Stick Blood Glucose 91 Intake and Output for Last 24 Hours 08/31/20 09/01/20 09/02/20 23:59 23:59 23:59 Intake Total 1000 / 1000 3106.67 / 3106.67 1025 / 1025 Balance 1000 / 1000 3106.67 / 3106.67 1025 / 1025 General: Alert, Cooperative HEENT: Atraumatic, Normocephalic Lungs: Clear to auscultation, Normal air movement Cardiovascular: Regular rate, No murmurs Abdomen: Bowel Sounds Present, Soft, Non Tender, Non-Distended Extremities: No clubbing, No cyanosis, No edema, Capillary Refill Less than 3 Seconds Neurological: Cranial nerves II-XII grossly intact, Neuro grossly intact Psych/Mental Status: Normal Affect, Appropriate 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 Culture - Preliminary GNR lactose 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 Beta hemolytic organism Gram positive organism Laboratory Results 09/01/20 16:07: POC Glucose 66 L 09/01/20 16:23: POC Glucose 85 09/01/20 20:22: POC Glucose 251 H 09/02/20 06:33: POC Glucose 273 H 09/02/20 06:55: WBC 8.5, RBC 2.76 L, Hgb 7.7 L, Hct 25.2 L, MCV 91.3, MCH 27.9, MCHC 30.6 L, RDW Std Deviation 43.7, RDW Coeff of Fior 13.2, Plt Count 355, MPV 10.8, Immature Gran % (Auto) 0.200, Neut % (Auto) 82.1 H, Lymph % (Auto) 10.6 L, Oliver % (Auto) 4.5, Eos % (Auto) 2.1, Baso % (Auto) 0.5, Absolute Neuts (auto) 7.0, Absolute Lymphs (auto) 0.90, Nucleated RBC % 0 09/02/20 06:55: Sodium 139, Potassium 4.2, Chloride 113 H, Carbon Dioxide 20.0 L , Anion Gap 6, BUN 24 H, Creatinine 1.43 H, Estim Creat Clear Calc 41.61, Est GFR (MDRD) Af Amer 49 L, Est GFR (MDRD) Non-Af 41 L, BUN/Creatinine Ratio 16.8, Glucose 264 H, Calcium 8.1 L 09/02/20 09:18: POC Glucose 321 H 09/02/20 13:45: Vancomycin Trough 18.0 H Current Medications Acetaminophen (Acetaminophen 325 Mg Tablet) 650 mg PO Q6H PRN PRN PRN Reason: Pain Score 1-10/Temp > 100.7 F Al Hydroxide/Mg Hydroxide (Mag Hydrox/Al Hydrox/Simeth 30 Ml Udc) 30 ml PO Q6H PRN PRN PRN Reason: Gastric Burning Albuterol Sulfate (Albuterol 2.5 Mg/3 Ml Vial.Neb.) 2.5 mg INHALATION Q2H PRN PRN PRN Reason: Dyspnea, wheezing Aspirin (Aspirin E.C. 81 Mg Tablet) 81 mg PO DAILY@0800 [facility] Last Admin: 09/02/20 09:24 Dose: 81 mg Documented by: Atorvastatin Calcium (Atorvastatin Calcium 80 Mg Tablet) 80 mg PO QHS [facility] Last Admin: 09/01/20 21:39 Dose: 80 mg Documented by: Clopidogrel Bisulfate (Clopidogrel Bisulfate 75 Mg Tablet) 75 mg PO DAILY [facility] Last Admin: 09/02/20 09:25 Dose: 75 mg Documented by: Diphenhydramine HCl (Diphenhydramine 50 Mg/Ml Syringe) 25 mg IV Q6H PRN PRN PRN Reason: ITCHING Enoxaparin Sodium (Enoxaparin 40 Mg/0.4 Ml Syringe) 40 mg SC DAILY [facility] Last Admin: 09/02/20 09:25 Dose: 40 mg Documented by: Gabapentin (Gabapentin 300 Mg Capsule) 900 mg PO TIDCM [facility] Last Admin: 09/02/20 11:21 Dose: 900 mg Documented by: Guaifenesin (Guaifenesin 10 Ml Udc (200mg/10ml)) 20 ml PO Q4H PRN PRN PRN Reason: COUGH Hydralazine HCl (Hydralazine 20 Mg/Ml Vial) 10 mg IV Q4H PRN PRN PRN Reason: SBP > 160 Vancomycin IV Pharmacy to Dose (1 ea/ Sodium Chloride) 500 mls @ 250 mls/hr IV X1 PRN; Protocol PRN Reason: Rx to Dose Cefepime HCl 2 gm/ Sodium (Chloride) 100 mls @ 200 mls/hr IV Q12 [facility] Last Infusion: 09/02/20 10:35 Dose: Infused Documented by: Vancomycin HCl 750 mg/ Sodium (Chloride) 265 mls @ 250 mls/hr IV Q12H [facility] Last Admin: 09/02/20 13:53 Dose: 250 mls/hr Documented by: Insulin Glargine (Insulin Glargine 100 Units/Ml Pen) 30 units SC BID [facility] Last Admin: 09/02/20 09:23 Dose: 30 units Documented by: Insulin Human Lispro (Insulin Lispro 100 Unit/Ml Insuln.Pen) 20 unit SC TIDCM [facility] Last Admin: 09/02/20 11:15 Dose: Not Given Documented by: Insulin Human Lispro (Insulin Lispro 100 Unit/Ml Insuln.Pen) 0 unit SC ACHS [facility]; Protocol Last Admin: 09/02/20 11:07 Dose: Not Given Documented by: Isosorbide Mononitrate (Isosorbide Mononitrate 30 Mg Tablet) 30 mg PO DAILY [facility] Last Admin: 09/02/20 09:24 Dose: 30 mg Documented by: Magnesium Hydroxide (Magnesium Hydroxide 30 Ml Udc) 30 ml PO DAILY PRN PRN PRN Reason: Constipation Melatonin (Melatonin 3 Mg Tablet) 3 mg PO QHS PRN PRN PRN Reason: INSOMNIA Nitroglycerin (Nitroglycerin (Inpatient Use) 0.4 Mg Tab.Subl) 0.4 mg SUBLINGUAL Q5M PRN PRN Reason: CARDIAC/CHEST PAIN Nutritional Formula (Nutritional Supplement (Ted) Packet) 1 packet PO BIDCM [facility] Last Admin: 09/02/20 09:25 Dose: Not Given Documented by: Nutritional Formula (Lactose Free) (Glucerna Shake 120 Ml Liquid) 120 ml PO 4X/DAY [facility] Last Admin: 09/02/20 13:53 Dose: 120 ml Documented by: Ondansetron HCl (Ondansetron 4 Mg/2 Ml Vial) 4 mg IV Q8H PRN PRN PRN Reason: NAUSEA/VOMITING Oxycodone HCl (Oxycodone 5 Mg Tablet) 5 mg PO Q4H PRN PRN PRN Reason: Pain Score 4-5 Last Admin: 08/31/20 23:44 Dose: 5 mg Documented by: Pantoprazole Sodium (Pantoprazole Sodium 40 Mg Tablet) 40 mg PO DAILY [facility] Last Admin: 09/02/20 09:25 Dose: 40 mg Documented by: Paroxetine HCl (Paroxetine 20 Mg Tablet) 20 mg PO QHS [facility] Last Admin: 09/01/20 21:40 Dose: 20 mg Documented by: Polysaccharide Iron Complex (Iron Polysaccharide Complex 150 Mg Capsule) [facility] Last Admin: 09/02/20 09:24 Dose: 150 mg Documented by: Pramipexole Dihydrochloride (Pramipexole Di-Hcl 1 Mg Tablet) 3 mg PO QHS [facility] Last Admin: 09/01/20 21:38 Dose: 3 mg Documented by: Prochlorperazine Edisylate (Prochlorperazine 10 Mg/2 Ml Vial) 5 mg IV Q4H PRN PRN PRN Reason: Breakthrough Nausea/Vomiting Psyllium Hydrophilic Mucilloid (Psyllium 1 Packet) 1 packet PO DAILY PRN PRN PRN Reason: Constipation Senna/Docusate Sodium (Senna/Docusate Sodium 1 Tablet) 2 tablet PO BID PRN PRN PRN Reason: Constipation Sodium Chloride (0.9% Saline Lock 10 Ml Syringe) 10 - 40 ml IV UD PRN PRN Reason: SALINE FLUSH Last Admin: 09/02/20 11:01 Dose: 10 ml Documented by: Throat Lozenges (Benzocaine/Menthol 1 Lozenge) 1 lozenge MUCOUS MEM Q2H PRN PRN PRN Reason: SORE THROAT Zolpidem Tartrate (Zolpidem Tartrate 5 Mg Tablet) 5 mg PO QHS [facility] Last Admin: 09/01/20 21:39 Dose: 5 mg Documented by: Assessment/Plan Patient seen and examined independently. Data reviewed. I agree with the above note by the nurse practitioner. 1. chest pain: stress negative. suspect costochondritis v reflux. Reviewed CTA a nd stress with patient. Started PPI. may need GI follow up. 2. Left foot diabetic infected ulcer: s/p debridement. MRI did not show osteomyelitis. follow up cultures. 3. LLE edema: improved per patient. Check duplex. 4. DM2, uncontrolled. A1c 9.8. On glargine and SSI log with meals 5. VTE prophylaxis: enoxaparin. Inpatient E&M: 69154 Subs Hosp L2
--- NOTE | 2020-09-02 14:52 | PCM.RX.CS ---
Consult Pharmacy has been consulted to manage selected antiobiotic: Vancomycin Type of Consult: Follow-up Suspected Infection: Other - DIABETIC WOUND Labs: Sodium 139 mmol/L (136-145) 09/02/20 06:55 Potassium 4.2 mmol/L (3.5-5.1) 09/02/20 06:55 Chloride 113 mmol/L (98-107) H 09/02/20 06:55 Carbon Dioxide 20.0 mmol/L (21.0-32.0) L 09/02/20 06:55 Anion Gap 6 (5-15) 09/02/20 06:55 BUN 24 mg/dL (7-18) H 09/02/20 06:55 Creatinine 1.43 mg/dL (0.55-1.02) H 09/02/20 06:55 Est GFR (MDRD) Af Amer 49 mL/min (>60) L 09/02/20 06:55 Est GFR (MDRD) Non-Af 41 mL/min (>60) L 09/02/20 06:55 BUN/Creatinine Ratio 16.8 RATIO (10-20) 09/02/20 06:55 Glucose 264 mg/dL (74-106) H 09/02/20 06:55 Vancomycin Trough 18.0 ug/mL (5.0-15.0) H 09/02/20 13:45 Microbiology: Microbiology 08/31/20 23:00 Wound - Left Foot Gram Stain - Final 08/31/20 23:00 Wound - Left Foot Wound Culture - Preliminary 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 CONTINUE CURRENT DOSING REGIMEN. RE DRAW TROUGH IN 4 DAYS PER POLICY. Pharmacy Service will continue to monitor and adjust dosing as required. Labs to be done on [date and time ordered]: 09/06/20 @ 2655
--- NOTE | 2020-09-02 15:04 | CASEMGMT ---
Addendum entered by Alida Blum 09/02/20 15:55: Call received from Ivette @ [facility]. They are unable to accept pt d/t staffing. Call placed to Freddy @ [facility], as pt states she has had them before. Per Freddy, they are not in network /[facility]. Original Note: RN BEKA NOTE: PT/OT evals have been reviewed and no additional therapy recommended. KELSIE CM to room to discuss discharge planning. Pt states would like [facility] for wound care. She states she has been doing the daily dressing changes but feels having a nurse come to monitor wound would be beneficial. She denies having preference of [facility] agency. Call placed to Elise @ [facility] and referral made. Delta MANLEY RN CM
[2020-09-02 16:36] LABS: Bedside Glucose 148 mg/dL (70-110)
[2020-09-02 16:50] LABS: Bedside Glucose 192 mg/dL (70-110)
[2020-09-02] MEDS: oxyCODONE 5 MG Tablet PO (17:58)
--- NOTE | 2020-09-02 18:59 | PCM.PROGNOTE ---
Patient Problems: Active and Suspected Problems (This Medical Record has been edited. Action required.) Diabetic infection of left foot (Acute) Chest pain (Acute) Subjective: Patient was seen today for follow up on left foot. Patient had MRI today. No other complaints at this time, no complaints of fever, chills, nausea or vomiting. - Physical Exam Vitals/I&O's: Vital Signs Temp Pulse Resp BP Pulse Ox 98.3 F 104 H 18 157/92 H 98 09/02/20 15:48 09/02/20 15:48 09/02/20 15:48 09/02/20 15:48 09/02/20 15:48 Oxygen Flow Rate (L/min) 2 Oxygen Delivery Method Room Air Weight: 91.6 kg Body Mass Index (BMI) 31.6 Finger Stick Blood Glucose 91 Intake and Output for Last 24 Hours 08/31/20 09/01/20 09/02/20 23:59 23:59 23:59 Intake Total 1000 / 1000 3106.67 / 3106.67 1710 / 1710 Balance 1000 / 1000 3106.67 / 3106.67 1710 / 1710 General: Alert, Oriented x3, Cooperative, No apparent distress Extremities: Capillary Refill Less than 3 Seconds, No Calf Tenderness, - - Large plantar foot ulceration sub residual 5th met base with continued significant nonviable tissue to base, spongy texture, there is serous drainage, probes to fascia, no purulence, no crepitus, no fluctuance, no visible abscess, no erythema. 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 Beta hemolytic organism Gram positive organism Laboratory Results 09/01/20 20:22: POC Glucose 251 H 09/02/20 06:33: POC Glucose 273 H 09/02/20 06:55: WBC 8.5, RBC 2.76 L, Hgb 7.7 L, Hct 25.2 L, MCV 91.3, MCH 27.9, MCHC 30.6 L, RDW Std Deviation 43.7, RDW Coeff of Fior 13.2, Plt Count 355, MPV 10.8, Immature Gran % (Auto) 0.200, Neut % (Auto) 82.1 H, Lymph % (Auto) 10.6 L, [place] % (Auto) 4.5, Eos % (Auto) 2.1, Baso % (Auto) 0.5, Absolute Neuts (auto) 7.0, Absolute Lymphs (auto) 0.90, Nucleated RBC % 0 09/02/20 06:55: Sodium 139, Potassium 4.2, Chloride 113 H, Carbon Dioxide 20.0 L, Anion Gap 6, BUN 24 H, Creatinine 1.43 H, Estim Creat Clear Calc 41.61, Est GFR (MDRD) Af Amer 49 L, Est GFR (MDRD) Non-Af 41 L, BUN/Creatinine Ratio 16.8, Glucose 264 H, Calcium 8.1 L 09/02/20 09:18: POC Glucose 321 H 09/02/20 11:07: POC Glucose 148 H 09/02/20 13:45: Vancomycin Trough 18.0 H 09/02/20 16:47: POC Glucose 192 H Current Medications Acetaminophen (Acetaminophen 325 Mg Tablet) 650 mg PO Q6H PRN PRN PRN Reason: Pain Score 1-10/Temp > 100.7 F Al Hydroxide/Mg Hydroxide (Mag Hydrox/Al Hydrox/Simeth 30 Ml Udc) 30 ml PO Q6H PRN PRN PRN Reason: Gastric Burning Albuterol Sulfate (Albuterol 2.5 Mg/3 Ml Vial.Neb.) 2.5 mg INHALATION Q2H PRN PRN PRN Reason: Dyspnea, wheezing Aspirin (Aspirin E.C. 81 Mg Tablet) 81 mg PO DAILY@0800 [facility] Last Admin: 09/02/20 09:24 Dose: 81 mg Documented by: Atorvastatin Calcium (Atorvastatin Calcium 80 Mg Tablet) 80 mg PO QHS [facility] Last Admin: 09/01/20 21:39 Dose: 80 mg Documented by: Clopidogrel Bisulfate (Clopidogrel Bisulfate 75 Mg Tablet) 75 mg PO DAILY [facility] Last Admin: 09/02/20 09:25 Dose: 75 mg Documented by: Diphenhydramine HCl (Diphenhydramine 50 Mg/Ml Syringe) 25 mg IV Q6H PRN PRN PRN Reason: ITCHING Enoxaparin Sodium (Enoxaparin 40 Mg/0.4 Ml Syringe) 40 mg SC DAILY [facility] Last Admin: 09/02/20 09:25 Dose: 40 mg Documented by: Gabapentin (Gabapentin 300 Mg Capsule) 900 mg PO TIDCM [facility] Last Admin: 09/02/20 16:51 Dose: 900 mg Documented by: Guaifenesin (Guaifenesin 10 Ml Udc (200mg/10ml)) 20 ml PO Q4H PRN PRN PRN Reason: COUGH Hydralazine HCl (Hydralazine 20 Mg/Ml Vial) 10 mg IV Q4H PRN PRN PRN Reason: SBP > 160 Vancomycin IV Pharmacy to Dose (1 ea/ Sodium Chloride) 500 mls @ 250 mls/hr IV X1 PRN; Protocol PRN Reason: Rx to Dose Cefepime HCl 2 gm/ Sodium (Chloride) 100 mls @ 200 mls/hr IV Q12 [facility] Last Infusion: 09/02/20 10:35 Dose: Infused Documented by: Vancomycin HCl 750 mg/ Sodium (Chloride) 265 mls @ 250 mls/hr IV Q12H [facility] Last Infusion: 09/02/20 15:05 Dose: Infused Documented by: Insulin Glargine (Insulin Glargine 100 Units/Ml Pen) 30 units SC BID [facility] Last Admin: 09/02/20 09:23 Dose: 30 units Documented by: Insulin Glargine (Insulin Glargine 100 Units/Ml Pen) 18 units SC X1 ONE Stop: 09/02/20 22:01 Insulin Human Lispro (Insulin Lispro 100 Unit/Ml Insuln.Pen) 20 unit SC TIDCM [facility] Last Admin: 09/02/20 16:51 Dose: 20 units Documented by: Insulin Human Lispro (Insulin Lispro 100 Unit/Ml Insuln.Pen) 0 unit SC ACHS [facility]; Protocol Last Admin: 09/02/20 16:51 Dose: 3 units Documented by: Isosorbide Mononitrate (Isosorbide Mononitrate 30 Mg Tablet) 30 mg PO DAILY [facility] Last Admin: 09/02/20 09:24 Dose: 30 mg Documented by: Magnesium Hydroxide (Magnesium Hydroxide 30 Ml Udc) 30 ml PO DAILY PRN PRN PRN Reason: Constipation Melatonin (Melatonin 3 Mg Tablet) 3 mg PO QHS PRN PRN PRN Reason: INSOMNIA Nitroglycerin (Nitroglycerin (Inpatient Use) 0.4 Mg Tab.Subl) 0.4 mg SUBLINGUAL Q5M PRN PRN Reason: CARDIAC/CHEST PAIN Nutritional Formula (Nutritional Supplement (Ted) Packet) 1 packet PO BIDCM [facility] Last Admin: 09/02/20 16:51 Dose: Not Given Documented by: Nutritional Formula (Lactose Free) (Glucerna Shake 120 Ml Liquid) 120 ml PO 4X/DAY [facility] Last Admin: 09/02/20 16:52 Dose: 120 ml Documented by: Ondansetron HCl (Ondansetron 4 Mg/2 Ml Vial) 4 mg IV Q8H PRN PRN PRN Reason: NAUSEA/VOMITING Oxycodone HCl (Oxycodone 5 Mg Tablet) 5 mg PO Q4H PRN PRN PRN Reason: Pain Score 4-5 Last Admin: 09/02/20 17:58 Dose: 5 mg Documented by: Pantoprazole Sodium (Pantoprazole Sodium 40 Mg Tablet) 40 mg PO DAILY [facility] Last Admin: 09/02/20 09:25 Dose: 40 mg Documented by: Paroxetine HCl ([facility]) [facility] Admin: 09/01/20 21:40 Dose: 20 mg Documented by: Polysaccharide Iron Complex (Iron Polysaccharide Complex 150 Mg [facility]apsule) [facility] Last Admin: 09/02/20 09:24 Dose: 150 mg Documented by: Pramipexole Dihydrochloride (Pramipexole Di-Hcl 1 Mg Tablet) [facility] Last Admin: 09/01/20 21:38 Dose: 3 mg Documented by: Prochlorperazine Edisylate (Prochlorperazine 10 Mg/2 Ml Vial) 5 mg IV Q4H PRN PRN PRN Reason: Breakthrough Nausea/Vomiting Psyllium Hydrophilic Mucilloid (Psyllium 1 Packet) 1 packet PO DAILY PRN PRN PRN Reason: Constipation Senna/Docusate Sodium (Senna/Docusate Sodium 1 Tablet) 2 tablet PO BID PRN PRN PRN Reason: Constipation Sodium Chloride (0.9% Saline Lock 10 Ml Syringe) 10 - 40 ml IV UD PRN PRN Reason: SALINE FLUSH Last Admin: 09/02/20 11:01 Dose: 10 ml Documented by: Throat Lozenges (Benzocaine/Menthol 1 Lozenge) 1 lozenge MUCOUS MEM Q2H PRN PRN PRN Reason: SORE THROAT Zolpidem Tartrate (Zolpidem Tartrate 5 Mg Tablet) [facility] Last Admin: 09/01/20 21:39 Dose: 5 mg Documented by: Medical Necessity - Tobacco Use Smoking Status: Never smoker Tobacco Use: Non-smoker Assessment/Plan All Active Problems (This Medical Record has been edited. Action required.) Diabetic infection of left foot (Acute) Chest pain (Acute) NSTEMI (non-ST elevated myocardial infarction) (Resolved 09/20/18) History of coronary artery stent placement (Resolved 09/21/18) Abscess of left foot (Resolved) Cellulitis of left foot (Resolved) Chest pain (Resolved) Diabetic foot infection (Resolved) Diarrhea (Resolved) Enteritis, Yersinia enterocolitica (Resolved) Hyperglycemia (Resolved) Intractable nausea and vomiting (Resolved) Malnutrition (Resolved) Necrotizing soft tissue infection (Resolved) Severe sepsis (Resolved) Left plantar foot ulceration down to fascia layer 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 Left foot xrays reviewed, no gas, osteomyelitis unable to be ruled out. MRI was ordered for further evaluation - no noted osteomyelitis, however significant fluid collection noted at site. Today the ulceration was further examined and continued nonviable tissue noted, in which some was debrided today at bedside. It was noted this does extend deep, and given this along with the MRI findings it would be best to do debridement in OR - this was discussed with patient today and we will plan to proceed with this tomorrow. It is also noted patient hgb is 7.7; there was noted to be some bleeding at the ulceration site upon further evaluation, so an H+H was ordered. Consider giving pRBC based on results, also important to consider patient is on Plavix. Culture reviewed: multiple organisms noted - continue with IV antibiotics. Reviewed noninvasive lower extremity arterial studies: good arterial flow to foot. No weightbearing left foot. Keep foot elevated. Wound care right lateral ankle: small superficial ulcerations: Mepilex dressing changes. NPO after midnight. I did discuss debridement surgery plans with Dr. Prado. Podiatry will continue to follow closely.
[2020-09-02 19:21] LABS: Hematocrit 22.6 % (37-47); Hemoglobin 7.4 g/dL (12.0-15.0)
[2020-09-02] MEDS: Zolpidem Tartrate 5 MG Tablet PO (21:41)
[2020-09-02] MEDS: oxyCODONE 5 MG Tablet 10 MG PO (21:42)
[2020-09-02] MEDS: Paroxetine 20 MG Tablet PO (21:44)
[2020-09-02] MEDS: Atorvastatin Calcium 80 MG Tablet PO (21:44)
[2020-09-02] MEDS: Pramipexole Di-HCl 1 MG Tablet 3 MG PO (21:44)
[2020-09-02 22:15] LABS: Bedside Glucose 143 mg/dL (70-110)
[2020-09-03] VITALS (19 sets, daily range): BP systolic 108–156; BP diastolic 52–77; PULSE 72–93; RESP 16–18; TEMP 36.5–37.2; O2SAT 97–100
[2020-09-03 05:33] LABS: Hematocrit 21.5 % (37-47); Hemoglobin 6.7 g/dL (12.0-15.0); Mean Corp Hgb Conc 31.2 g/dL (32-36); Mean Corpuscular Hgb 28.3 pg (27.0-32.0); Mean Corpuscular Volume 90.7 fL (81-99); Mean Platelet Vol. 10.8 fl (6.2-12.0); Platelet Count 311 K/mm3 (150-450); RBC Distribution Width CV 13.4 % (11.6-14.6); RBC Distribution Width SD 44.4 fl (35.1-43.9); Red Blood Count 2.37 M/mm3 (4.2-5.4); White Blood Count 7.5 K/mm3 (4.4-11.0)
[2020-09-03 05:47] LABS: Anion Gap 6 (5-15); BUN 27 mg/dL (7-18); BUN/Creat Ratio 22.9 RATIO (10-20); Calcium,Total 8.1 mg/dL (8.5-10.1); Chloride 116 mmol/L (98-107); Creatinine, Serum 1.18 mg/dL (0.55-1.02); EST Glomerular Filtration Rate 51 mL/min (>60); Est Glom Filt Rate - Afr Amer 61 mL/min (>60); Estimated Creatinine Clearance 50.43 ml/min; Glucose 213 mg/dL (74-106); Potassium 3.9 mmol/L (3.5-5.1); Sodium Level 142 mmol/L (136-145)
[2020-09-03 07:00] LABS: Bedside Glucose 231 mg/dL (70-110)
[2020-09-03 07:49] LABS: Hemoglobin A1c 9.8 % (3.8-5.6)
--- NOTE | 2020-09-03 08:15 | NURSING ---
Talked with Dr Guadarrama. Pt was going to have surgery today on the left foot, but has moderate bleeding so dressing is to stay in place per Dr Guadarrama. Surgery on hold for now.
[2020-09-03] MEDS: Pantoprazole Sodium 40 MG Tablet PO (09:03)
[2020-09-03] MEDS: Gabapentin 300 MG Capsule 900 MG PO ×3 (09:03→17:14)
[2020-09-03] MEDS: Isosorbide Mononitrate 30 MG Tablet PO (09:03)
[2020-09-03] MEDS: Glucerna Shake 120 ML LIQUID PO ×3 (09:03→21:22)
[2020-09-03] MEDS: Aspirin E.C. 81 MG Tablet PO (09:03)
[2020-09-03] MEDS: Iron Polysaccharide Complex 150 MG CAPSULE PO (09:03)
[2020-09-03] MEDS: oxyCODONE 5 MG Tablet PO ×2 (10:17→21:26)
[2020-09-03] MEDS: 0.9% Saline Lock 10 ML Syringe IV ×2 (10:17→21:38)
[2020-09-03] MEDS: Insulin Lispro 100 UNIT/ML INSULN.PEN 20 UNIT SC ×3 (10:18→17:17)
[2020-09-03] MEDS: Insulin Lispro 100 UNIT/ML INSULN.PEN SC ×3 (10:19→21:28)
[2020-09-03 11:41] LABS: Bedside Glucose 410 mg/dL (70-110)
--- NOTE | 2020-09-03 12:52 | CASEMGMT ---
Addendum entered by Alida Blum 09/03/20 13:33: Pt currently on bedrest d/t bleeding from foot. Therapy unable to see pt today. KELSIE IRELAND had further discussion w/pt re: discharge planning. Pt stated she would like for this KELSIE IRELAND to talk with her daughter, Trisha, (who she lives with), to discuss her going home vs a SNF. She states, if her daughter is able/willing to help her at home and feels she will do okay at home, that she also feels she will do okay and able to manage @ home. 1610: KELSIE IRELAND spoke w/Trisha at this time. She was made aware PT/OT do not recommend additional therapy and that pt would most likely not qualify for SNF placement at this time. Trisha states she is able/willing to help with pt. She states pt can use BSC during the day and she will assist w/emptying it out when she gets home from work, so that pt does not need to navigate the stairs while she is home alone. She also states there is a couch pt can sleep on @ night and pt was agreeable to this as well. She also states there is a sink on the main level that pt can wash up at if needed, instead of going upstairs to use the shower. Trisha stated, We've had to do this before in the past and it is manageable. Pt did discuss with KELSIE IRELAND about possibility of returning to her own home once she gets the electric turned back on, which she states she spoke w/Godwin Junior who will assist her with this next week once she submits required paperwork. Pt states she does not have any stairs in her home and that she may be able to manage better in her home own home at that time. Trisha made aware pt would like HHC for SN to monitor wound/assist w/wound care. Trisha agreeable and states this would be helpful. Referral for HHC faxed to [facility] for SN for wound care. Call received back from Mikayla and she states they are able to accept pt. She is aware pt may discharge home in the next 1-2 days. Pt and daughter, Trisha, both made aware. D/C Plan: Home with daughter and [facility]HC for SN: wound care. Pt has been provided with their contact information. Original Note: KELSIE IRELAND NOTE: To room to discuss HHC/discharge planning. Pt states she does not know if she can take care of herself at her daughters home where she is staying and states is interested in going to a SNF. She states the bedroom and bathroom are on the 2nd floor and there is no bathroom on the main floor. She states her daughter works during the day and she will be home all day by herself. She reports she does have a BSC, but states, I don't know if my daughter will be willing to empty it out for me. I'm not sure what she is willing to do to help take care of me. KELSIE IRELAND informed pt that when therapy worked with her yesterday, they do not recommend additional therapy and that she most likely will not qualify for SNF through insurance. Pt states she did talk to her daughter and that she told her daughter she may not qualify for SNF, that her daughter stated to her then we'll figure it out. Pt states her daughter can get her groceries and her medications for her. PT/OT to re-evaluate pt today. Will follow. Delta MANLEY RN, CM
--- NOTE | 2020-09-03 13:15 | PN_ITS ---
Patient Problems: Active and Suspected Problems (This Medical Record has been edited. Action required.) Diabetic infection of left foot (Acute) Chest pain (Acute) Reason for Visit: foot infection Subjective: Bleeding from debridement yesterday. No further chest pain. Vitals/I&O's: Vital Signs Temp Pulse Resp BP Pulse Ox 36.9 C 78 18 128/66 H 97 09/03/20 12:15 09/03/20 12:15 09/03/20 12:15 09/03/20 12:15 09/03/20 12:15 Oxygen Flow Rate (L/min) 2 Oxygen Delivery Method Room Air Weight: 88.2 kg Body Mass Index (BMI) 31.6 Finger Stick Blood Glucose 91 Orthostatic Vital Signs Start: 09/02/20 21:31 Freq: q24h Status: Active Protocol: Activity Type Activity Date Activity User E-Sign Co-Sign Detail Recorded Client Recorded Date Recorded By Document 09/02/20 21:31 [facility] [id number] 09/02/20 21:36 [facility] 09/02/20 21:31 Orthostatic Vitals Standing -Blood Pressure (90/60-120/80) 98/56 L -Extremity Use Right Arm -Pulse Rate (60-100) 100 Lying -Blood Pressure (90/60-120/80) 118/57 L -Extremity Use Right Arm -Pulse Rate (60-100) 79 Sitting -Blood Pressure (90/60-120/80) 99/56 L -Extremity Use Right Arm -Pulse Rate (60-100) 83 Intake and Output for Last 24 Hours 09/01/20 09/02/20 09/03/20 23:59 23:59 23:59 Intake Total 3106.67 / 3106.67 2310 / 2310 528.33 / 528.33 Balance 3106.67 / 3106.67 2310 / 2310 528.33 / 528.33 General: Alert, No apparent distress HEENT: Atraumatic, Normocephalic Oral: Moist Mucosa, No Gingival or Mucosal Lesions/ Ulcerations Neck: No Nodes, Thyroid Normal Size and Texture Lungs: Clear to auscultation, Normal air movement, No rhonchi, No wheeze Cardiovascular: Regular rate, Regular Rhythm, Normal S1, Normal S2, No murmurs Abdomen: Bowel Sounds Present, Soft, Non Tender, Non-Distended, No Hepato- splenomegaly Extremities: No edema, No Calf Tenderness, - - left foot bandaged--did not remove. 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 Culture - Preliminary Enterobacter cloacae complex Staphylococcus aureus Coag Negative Staph Laboratory Results 09/02/20 11:07: POC Glucose 148 H 09/02/20 13:45: Vancomycin Trough 18.0 H 09/02/20 16:47: POC Glucose 192 H 09/02/20 19:02: Hgb 7.4 L, Hct 22.6 L 09/02/20 21:41: POC Glucose 143 H 09/03/20 05:06: WBC 7.5, RBC 2.37 L, Hgb 6.7 L, Hct 21.5 L, MCV 90.7, MCH 28.3, MCHC 31.2 L, RDW Std Deviation 44.4 H, RDW Coeff of Fior 13.4, Plt Count 311, MPV 10.8 09/03/20 05:06: Sodium 142, Potassium 3.9, Chloride 116 H, Carbon Dioxide 20.0 L , Anion Gap 6, BUN 27 H, Creatinine 1.18 H, Estim Creat Clear Calc 50.43, Est GFR (MDRD) Af Amer 61, Est GFR (MDRD) Non-Af 51 L, BUN/Creatinine Ratio 22.9 H, Glucose 213 H, Calcium 8.1 L 09/03/20 05:06: Hemoglobin A1c 9.8 H 09/03/20 06:53: POC Glucose 231 H 09/03/20 08:00: Blood Type O POSITIVE, Antibody Screen NEGATIVE, Crossmatch See Detail 09/03/20 11:09: POC Glucose 410 H Current Medications Acetaminophen (Acetaminophen 325 Mg Tablet) 650 mg PO Q6H PRN PRN PRN Reason: Pain Score 1-10/Temp > 100.7 F Al Hydroxide/Mg Hydroxide (Mag Hydrox/Al Hydrox/Simeth 30 Ml Udc) 30 ml PO Q6H PRN PRN PRN Reason: Gastric Burning Albuterol Sulfate (Albuterol 2.5 Mg/3 Ml Vial.Neb.) 2.5 mg INHALATION Q2H PRN PRN PRN Reason: Dyspnea, wheezing Aspirin (Aspirin E.C. 81 Mg Tablet) 81 mg PO DAILY@0800 [facility] Last Admin: 09/03/20 09:03 Dose: 81 mg Documented by: Atorvastatin Calcium (Atorvastatin Calcium 80 Mg Tablet) 80 mg PO QHS [facility] Last Admin: 09/02/20 21:44 Dose: 80 mg Documented by: Diphenhydramine HCl (Diphenhydramine 50 Mg/Ml Syringe) 25 mg IV Q6H PRN PRN PRN Reason: ITCHING Enoxaparin Sodium (Enoxaparin 40 Mg/0.4 Ml Syringe) 40 mg SC DAILY [facility] Last Admin: 09/02/20 09:25 Dose: 40 mg Documented by: Gabapentin (Gabapentin 300 Mg Capsule) 900 mg PO TIDCM [facility] Last Admin: 09/03/20 11:14 Dose: 900 mg Documented by: Guaifenesin (Guaifenesin 10 Ml Udc (200mg/10ml)) 20 ml PO Q4H PRN PRN PRN Reason: COUGH Hydralazine HCl (Hydralazine 20 Mg/Ml Vial) 10 mg IV Q4H PRN PRN PRN Reason: SBP > 160 Vancomycin IV Pharmacy to Dose (1 ea/ Sodium Chloride) 500 mls @ 250 mls/hr IV X1 PRN; Protocol PRN Reason: Rx to Dose Cefepime HCl 2 gm/ Sodium (Chloride) 100 mls @ 200 mls/hr IV Q12 [facility] Last Infusion: 09/03/20 09:10 Dose: 0 mls/hr Documented by: Vancomycin HCl 750 mg/ Sodium (Chloride) 265 mls @ 250 mls/hr IV Q12H [facility] Last Infusion: 09/03/20 03:04 Dose: Infused Documented by: Insulin Glargine (Insulin Glargine 100 Units/Ml Pen) 30 units SC BID [facility] Last Admin: 09/02/20 09:23 Dose: 30 units Documented by: Insulin Human Lispro (Insulin Lispro 100 Unit/Ml Insuln.Pen) 20 unit SC TIDCM [facility] Last Admin: 09/03/20 12:31 Dose: 20 units Documented by: Insulin Human Lispro (Insulin Lispro 100 Unit/Ml Insuln.Pen) 0 unit SC ACHS [facility]; Protocol Last Admin: 09/03/20 12:31 Dose: 16 units Documented by: Isosorbide Mononitrate (Isosorbide Mononitrate 30 Mg Tablet) 30 mg PO DAILY [facility] Last Admin: 09/03/20 09:03 Dose: 30 mg Documented by: Magnesium Hydroxide (Magnesium Hydroxide 30 Ml Udc) 30 ml PO DAILY PRN PRN PRN Reason: Constipation Melatonin (Melatonin 3 Mg Tablet) 3 mg PO QHS PRN PRN PRN Reason: INSOMNIA Nitroglycerin (Nitroglycerin (Inpatient Use) 0.4 Mg Tab.Subl) 0.4 mg SUBLINGUAL Q5M PRN PRN Reason: CARDIAC/CHEST PAIN Nutritional Formula (Nut[facility]al [facility] ([facility]ed) [facility]) [facility] Admin: 09/03/20 09:03 Dose: Not Given Documented by: Nutritional Formula (Lactose Free) (Glucerna Shake 120 Ml Liquid) 120 ml PO 4X/DAY [facility] Last Admin: 09/03/20 09:03 Dose: 120 ml Documented by: Ondansetron HCl (Ondansetron 4 Mg/2 Ml Vial) 4 mg IV Q8H PRN PRN PRN Reason: NAUSEA/VOMITING Oxycodone HCl (Oxycodone 5 Mg Tablet) 5 mg PO Q4H PRN PRN PRN Reason: Pain Score 4-5 Last Admin: 09/03/20 10:17 Dose: 5 mg Documented by: Oxycodone HCl (Oxycodone 5 Mg Tablet) 10 mg PO Q4H PRN PRN PRN Reason: Pain Score 6-10 Last Admin: 09/02/20 21:42 Dose: 10 mg Documented by: Pantoprazole Sodium (Pantoprazole Sodium 40 Mg Tablet) 40 mg PO DAILY [facility] Last Admin: 09/03/20 09:03 Dose: 40 mg Documented by: Paroxetine HCl (Paroxetine 20 Mg Tablet) 20 mg PO QHS [facility] Last Admin: 09/02/20 21:44 Dose: 20 mg Documented by: Polysaccharide Iron Complex (Iron Polysaccharide Complex 150 Mg Capsule) [facility] Last Admin: 09/03/20 09:03 Dose: 150 mg Documented by: Pramipexole Dihydrochloride (Pramipexole Di-Hcl 1 Mg Tablet) 3 mg PO QHS [facility] Last Admin: 09/02/20 21:44 Dose: 3 mg Documented by: Prochlorperazine Edisylate (Prochlorperazine 10 Mg/2 Ml Vial) 5 mg IV Q4H PRN PRN PRN Reason: Breakthrough Nausea/Vomiting Psyllium Hydrophilic Mucilloid (Psyllium 1 Packet) 1 packet PO DAILY PRN PRN PRN Reason: Constipation Senna/Docusate Sodium (Senna/Docusate Sodium 1 Tablet) 2 tablet PO BID PRN PRN PRN Reason: Constipation Sodium Chloride (0.9% Saline Lock 10 Ml Syringe) 10 - 40 ml IV UD PRN PRN Reason: SALINE FLUSH Last Admin: 09/03/20 10:17 Dose: 20 ml Documented by: Throat Lozenges (Benzocaine/Menthol 1 Lozenge) 1 lozenge MUCOUS MEM Q2H PRN PRN PRN Reason: SORE THROAT Zolpidem Tartrate (Zolpidem Tartrate 5 Mg Tablet) 5 mg PO QHS TAB Last Admin: 09/02/20 21:41 Dose: 5 mg Documented by: STROKE Vital Signs/Narrative: Vital Signs Temp Pulse Resp BP Pulse Ox 09/03/20 12:15 36.9 C 78 18 128/66 H 97 09/03/20 11:15 36.9 C 86 18 121/59 H 99 09/03/20 11:00 36.6 C 81 18 130/54 H 99 Medical Necessity - Tobacco Use Smoking Status: Never smoker Tobacco Use: Non-smoker Assessment/Plan All Active Problems (This Medical Record has been edited. Action required.) Diabetic infection of left foot (Acute) Chest pain (Acute) NSTEMI (non-ST elevated myocardial infarction) (Resolved 09/20/18) History of coronary artery stent placement (Resolved 09/21/18) Abscess of left foot (Resolved) Cellulitis of left foot (Resolved) Chest pain (Resolved) Diabetic foot infection (Resolved) Diarrhea (Resolved) Enteritis, Yersinia enterocolitica (Resolved) Hyperglycemia (Resolved) Intractable nausea and vomiting (Resolved) Malnutrition (Resolved) Necrotizing soft tissue infection (Resolved) Severe sepsis (Resolved) 1. chest pain: stress negative. suspect costochondritis v reflux. Reviewed CTA and stress with patient. Started PPI. may need GI follow up. 2. Left foot diabetic infected ulcer: s/p debridement. MRI did not show osteomyelitis. follow up cultures, thus far growing out Enterobacter, S. andry and RESEARCH TECH. continue pip/tazo and vancomycin. DW Dr. Wunning, plan for debridement next week as pt had significant bleeding from prior debridement. As it is non- emergent, hold clopidogrel until surgery. 3. ABLA: transfuse 1 unit. Recheck. 4. LLE edema: improved per patient. Duplex negative. 5. DM2, uncontrolled. A1c 9.8. On glargine and SSI log with meals 6. VTE prophylaxis: SCDs. hold enoxaparin given anemia. Inpatient E&M: 71661 Subs Hosp L2
[2020-09-03 16:56] LABS: Bedside Glucose 103 mg/dL (70-110)
--- NOTE | 2020-09-03 17:22 | PN_ITS ---
Patient Problems: Active and Suspected Problems (This Medical Record has been edited. Action required.) Diabetic infection of left foot (Acute) Chest pain (Acute) Subjective: Patient was seen today for follow up on left foot. She relates she is tired. She is sitting up in bed receiving 1 unit blood. Patient with no other complaints. No complaints of fever, chills, nausea or vomiting. - Physical Exam Vitals/I&O's: Vital Signs Temp Pulse Resp BP Pulse Ox 98.9 F 89 16 148/71 H 98 09/03/20 17:05 09/03/20 17:05 09/03/20 17:05 09/03/20 17:05 09/03/20 17:05 Oxygen Flow Rate (L/min) 2 Oxygen Delivery Method Room Air Weight: 88.2 kg Body Mass Index (BMI) 31.6 Finger Stick Blood Glucose 91 Orthostatic Vital Signs Start: 09/02/20 21:31 Freq: q24h Status: Active Protocol: Activity Type Activity Date Activity User E-Sign Co-Sign Detail Recorded Client Recorded Date Recorded By Document 09/02/20 21:31 [facility] [id number] 09/02/20 21:36 [facility] 09/02/20 21:31 Orthostatic Vitals Standing -Blood Pressure (90/60-120/80) 98/56 L -Extremity Use Right Arm -Pulse Rate (60-100) 100 Lying -Blood Pressure (90/60-120/80) 118/57 L -Extremity Use Right Arm -Pulse Rate (60-100) 79 Sitting -Blood Pressure (90/60-120/80) 99/56 L -Extremity Use Right Arm -Pulse Rate (60-100) 83 Intake and Output for Last 24 Hours 09/01/20 09/02/20 09/03/20 23:59 23:59 23:59 Intake Total 3106.67 / 3106.67 2310 / 2310 1153.33 / 1153.33 Balance 3106.67 / 3106.67 2310 / 2310 1153.33 / 1153.33 General: Alert, Oriented x3, Cooperative, No apparent distress Extremities: Capillary Refill Less than 3 Seconds, No Calf Tenderness, - - Dressing intact left foot with no strikethrough to the outer layer. 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 Culture - Preliminary Enterobacter cloacae complex Staphylococcus aureus Coag Negative Staph Laboratory Results 09/02/20 19:02: Hgb 7.4 L, Hct 22.6 L 09/02/20 21:41: POC Glucose 143 H 09/03/20 05:06: WBC 7.5, RBC 2.37 L, Hgb 6.7 L, Hct 21.5 L, MCV 90.7, MCH 28.3, MCHC 31.2 L, RDW Std Deviation 44.4 H, RDW Coeff of Fior 13.4, Plt Count 311, MPV 10.8 09/03/20 05:06: Sodium 142, Potassium 3.9, Chloride 116 H, Carbon Dioxide 20.0 L , Anion Gap 6, BUN 27 H, Creatinine 1.18 H, Estim Creat Clear Calc 50.43, Est GFR (MDRD) Af Amer 61, Est GFR (MDRD) Non-Af 51 L, BUN/Creatinine Ratio 22.9 H, Glucose 213 H, Calcium 8.1 L 09/03/20 05:06: Hemoglobin A1c 9.8 H 09/03/20 06:53: POC Glucose 231 H 09/03/20 08:00: Blood Type O POSITIVE, Antibody Screen NEGATIVE, Crossmatch See Detail 09/03/20 11:09: POC Glucose 410 H 09/03/20 16:46: POC Glucose 103 Current Medications Acetaminophen (Acetaminophen 325 Mg Tablet) 650 mg PO Q6H PRN PRN PRN Reason: Pain Score 1-10/Temp > 100.7 F Al Hydroxide/Mg Hydroxide (Mag Hydrox/Al Hydrox/Simeth 30 Ml Udc) 30 ml PO Q6H PRN PRN PRN Reason: Gastric Burning Albuterol Sulfate (Albuterol 2.5 Mg/3 Ml Vial.Neb.) 2.5 mg INHALATION Q2H PRN PRN PRN Reason: Dyspnea, wheezing Aspirin (Aspirin E.C. 81 Mg Tablet) 81 mg PO DAILY@0800 [facility] Last Admin: 09/03/20 09:03 Dose: 81 mg Documented by: Atorvastatin Calcium (Atorvastatin Calcium 80 Mg Tablet) 80 mg PO QHS [facility] Last Admin: 09/02/20 21:44 Dose: 80 mg Documented by: Diphenhydramine HCl (Diphenhydramine 50 Mg/Ml Syringe) 25 mg IV Q6H PRN PRN PRN Reason: ITCHING Enoxaparin Sodium (Enoxaparin 40 Mg/0.4 Ml Syringe) 40 mg SC DAILY [facility] Last Admin: 09/02/20 09:25 Dose: 40 mg Documented by: Gabapentin (Gabapentin 300 Mg Capsule) 900 mg PO TIDCM [facility] Last Admin: 09/03/20 17:14 Dose: 900 mg Documented by: Guaifenesin (Guaifenesin 10 Ml Udc (200mg/10ml)) 20 ml PO Q4H PRN PRN PRN Reason: COUGH Hydralazine HCl (Hydralazine 20 Mg/Ml Vial) 10 mg IV Q4H PRN PRN PRN Reason: SBP > 160 Vancomycin IV Pharmacy to Dose (1 ea/ Sodium Chloride) 500 mls @ 250 mls/hr IV X1 PRN; Protocol PRN Reason: Rx to Dose Cefepime HCl 2 gm/ Sodium (Chloride) 100 mls @ 200 mls/hr IV Q12 [facility] Last Infusion: 09/03/20 09:10 Dose: 0 mls/hr Documented by: Vancomycin HCl 750 mg/ Sodium (Chloride) 265 mls @ 250 mls/hr IV Q12H [facility] Last Infusion: 09/03/20 15:28 Dose: Infused Documented by: Insulin Glargine (Insulin Glargine 100 Units/Ml Pen) 30 units SC BID [facility] Last Admin: 09/02/20 09:23 Dose: 30 units Documented by: Insulin Human Lispro (Insulin Lispro 100 Unit/Ml Insuln.Pen) 20 unit SC TIDCM [facility] Last Admin: 09/03/20 17:17 Dose: 20 units Documented by: Insulin Human Lispro (Insulin Lispro 100 Unit/Ml Insuln.Pen) 0 unit SC ACHS [facility]; Protocol Last Admin: 09/03/20 17:19 Dose: Not Given Documented by: Isosorbide Mononitrate (Isosorbide Mononitrate 30 Mg Tablet) 30 mg PO DAILY [facility] Last Admin: 09/03/20 09:03 Dose: 30 mg Documented by: Magnesium Hydroxide (Magnesium Hydroxide 30 Ml Udc) 30 ml PO DAILY PRN PRN PRN Reason: Constipation Melatonin (Melatonin 3 Mg Tablet) 3 mg PO QHS PRN PRN PRN Reason: INSOMNIA Nitroglycerin (Nitroglycerin (Inpatient Use) 0.4 Mg Tab.Subl) 0.4 mg SUBLINGUAL Q5M PRN PRN Reason: CARDIAC/CHEST PAIN Nutritional Formula (Nutritional Supp[facility] (Ted) Packet) [facility] Last Admin: 09/03/20 17:14 Dose: Not Given Documented by: Nutritional Formula (Lactose Free) (Glucerna Shake 120 Ml Liquid) 120 ml PO 4X/DAY [facility] Last Admin: 09/03/20 17:15 Dose: 120 ml Documented by: Ondansetron HCl (Ondansetron 4 Mg/2 Ml Vial) 4 mg IV Q8H PRN PRN PRN Reason: NAUSEA/VOMITING Oxycodone HCl (Oxycodone 5 Mg Tablet) 5 mg PO Q4H PRN PRN PRN Reason: Pain Score 4-5 Last Admin: 09/03/20 10:17 Dose: 5 mg Documented by: Oxycodone HCl (Oxycodone 5 Mg Tablet) 10 mg PO Q4H PRN PRN PRN Reason: Pain Score 6-10 Last Admin: 09/02/20 21:42 Dose: 10 mg Documented by: Pantoprazole Sodium (Pantoprazole Sodium 40 Mg Tablet) 40 mg PO DAILY [facility] Last Admin: 09/03/20 09:03 Dose: 40 mg Documented by: Paroxetine HCl (Paroxetine 20 Mg Tablet) 20 mg PO QHS [facility] Last Admin: 09/02/20 21:44 Dose: 20 mg Documented by: Polysaccharide Iron Complex (Iron Polysaccharide Complex 150 Mg Capsule) [facility] Last Admin: 09/03/20 09:03 Dose: 150 mg Documented by: Pramipexole Dihydrochloride (Pramipexole Di-Hcl 1 Mg Tablet) [facility] Admin: 09/02/20 21:44 Dose: 3 mg Documented by: Prochlorperazine Edisylate (Prochlorperazine 10 Mg/2 Ml Vial) 5 mg IV Q4H PRN PRN PRN Reason: Breakthrough Nausea/Vomiting Psyllium Hydrophilic Mucilloid (Psyllium 1 Packet) 1 packet PO DAILY PRN PRN PRN Reason: Constipation Senna/Docusate Sodium (Senna/Docusate Sodium 1 Tablet) 2 tablet PO BID PRN PRN PRN Reason: Constipation Sodium Chloride (0.9% Saline Lock 10 Ml Syringe) 10 - 40 ml IV UD PRN PRN Reason: SALINE FLUSH Last Admin: 09/03/20 10:17 Dose: 20 ml Documented by: Throat Lozenges (Benzocaine/Menthol 1 Lozenge) 1 lozenge MUCOUS MEM Q2H PRN PRN PRN Reason: SORE THROAT Zolpidem Tartrate (Zolpidem Tartrate 5 Mg Tablet) 5 mg PO QHS [facility] Last Admin: 09/02/20 21:41 Dose: 5 mg Documented by: Medical Necessity - Tobacco Use Smoking Status: Never smoker Tobacco Use: Non-smoker Assessment/Plan All Active Problems (This Medical Record has been edited. Action required.) Diabetic infection of left foot (Acute) Chest pain (Acute) NSTEMI (non-ST elevated myocardial infarction) (Resolved 09/20/18) History of coronary artery stent placement (Resolved 09/21/18) Abscess of left foot (Resolved) Cellulitis of left foot (Resolved) Chest pain (Resolved) Diabetic foot infection (Resolved) Diarrhea (Resolved) Enteritis, Yersinia enterocolitica (Resolved) Hyperglycemia (Resolved) Intractable nausea and vomiting (Resolved) Malnutrition (Resolved) Necrotizing soft tissue infection (Resolved) Severe sepsis (Resolved) Left plantar foot ulceration down to fascia layer 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 Left foot xrays reviewed, no gas, osteomyelitis unable to be ruled out. MRI was ordered for further evaluation - no noted osteomyelitis, however significant fluid collection noted at site. There was bleeding from bedside debridement, hgb dropped to 6.7; discussed with Dr. Prado, patient receiving 1 unit and plans on rechecking hgb. Due to anemia plan to hold plavix, address hgb, then plan to proceed with OR debridement in ~5 days. Dressing left clean, dry and intact at this time. Culture reviewed: multiple organisms noted - continue with IV antibiotics. Reviewed noninvasive lower extremity arterial studies: good arterial flow to foot. No weightbearing left foot. Keep foot elevated. Wound care right lateral ankle: small superficial ulcerations: Mepilex dressing changes. Recommend patient go to nursing facility upon discharge- pt will need to be strict nonweightbearing left foot and she will not be capable of that at her daughters, also will need daily wound care to foot by nursing. Podiatry will continue to follow closely.
[2020-09-03 20:42] LABS: Absolute Lymphocyte Count 1.65 X10^3/uL (0.83-4.51); Basophil# 0.05 X10^3/uL; Basophil% 0.5 % (0-1); Eosinophil# 0.26 X10^3/uL; Eosinophils% 2.7 % (0-5); Hematocrit 29.1 % (37-47); Hemoglobin 9.4 g/dL (12.0-15.0); Lymphocyte # 1.65 X10^3/ul (4.0); Lymphocyte % 17.1 % (19-41); Mean Corp Hgb Conc 32.3 g/dL (32-36); Mean Corpuscular Hgb 28.9 pg (27.0-32.0); Mean Corpuscular Volume 89.5 fL (81-99); Mean Platelet Vol. 10.4 fl (6.2-12.0); Monocyte% 6.2 % (0-10); NRBC Flagged by Analyzer 0 % (0-5); Neutrophil # 7.01 X10^3/uL (2.7-7.7); Neutrophil % 72.7 % (47-70); Platelet Count 321 K/mm3 (150-450); RBC Distribution Width CV 13.2 % (11.6-14.6); RBC Distribution Width SD 43.7 fl (35.1-43.9); Red Blood Count 3.25 M/mm3 (4.2-5.4); White Blood Count 9.7 K/mm3 (4.4-11.0)
[2020-09-03] MEDS: Atorvastatin Calcium 80 MG Tablet PO (21:26)
[2020-09-03] MEDS: Pramipexole Di-HCl 1 MG Tablet 3 MG PO (21:26)
[2020-09-03] MEDS: Paroxetine 20 MG Tablet PO (21:26)
[2020-09-03] MEDS: Zolpidem Tartrate 5 MG Tablet PO (21:26)
[2020-09-03 21:35] LABS: Bedside Glucose 198 mg/dL (70-110)
[2020-09-03] MEDS: Senna/Docusate Sodium 1 Tablet 2 TABLET PO (21:37)
[2020-09-04] VITALS (9 sets, daily range): BP systolic 125–168; BP diastolic 56–72; PULSE 74–80; RESP 16–18; TEMP 36.7–37.2; O2SAT 96–97
[2020-09-04 05:39] LABS: Absolute Lymphocyte Count 1.61 X10^3/uL (0.83-4.51); Basophil# 0.06 X10^3/uL; Basophil% 0.7 % (0-1); Eosinophil# 0.24 X10^3/uL; Eosinophils% 2.8 % (0-5); Hematocrit 28.5 % (37-47); Hemoglobin 9.3 g/dL (12.0-15.0); Lymphocyte # 1.61 X10^3/ul (4.0); Mean Corp Hgb Conc 32.6 g/dL (32-36); Mean Corpuscular Hgb 29.2 pg (27.0-32.0); Mean Corpuscular Volume 89.3 fL (81-99); Monocyte# 0.46 X10^3/uL; Monocyte% 5.4 % (0-10); NRBC Flagged by Analyzer 0 % (0-5); Neutrophil # 5.97 X10^3/uL (2.7-7.7); Neutrophil % 70.6 % (47-70); Platelet Count 323 K/mm3 (150-450); RBC Distribution Width CV 13.3 % (11.6-14.6); RBC Distribution Width SD 43.6 fl (35.1-43.9); Red Blood Count 3.19 M/mm3 (4.2-5.4); White Blood Count 8.5 K/mm3 (4.4-11.0)
[2020-09-04 06:02] LABS: Anion Gap 6 (5-15); BUN 27 mg/dL (7-18); Calcium,Total 8.4 mg/dL (8.5-10.1); Chloride 113 mmol/L (98-107); Creatinine, Serum 1.35 mg/dL (0.55-1.02); EST Glomerular Filtration Rate 43 mL/min (>60); Est Glom Filt Rate - Afr Amer 52 mL/min (>60); Estimated Creatinine Clearance 44.08 ml/min; Glucose 342 mg/dL (74-106); Potassium 4.1 mmol/L (3.5-5.1); Sodium Level 140 mmol/L (136-145)
[2020-09-04] MEDS: Insulin Lispro 100 UNIT/ML INSULN.PEN SC ×4 (07:03→22:01)
[2020-09-04 07:15] LABS: Bedside Glucose 359 mg/dL (70-110)
--- NOTE | 2020-09-04 09:44 | PCM.PROGNOTE ---
Patient Problems: Active and Suspected Problems (This Medical Record has been edited. Action required.) Diabetic infection of left foot (Acute) Chest pain (Acute) Subjective: Patient was seen today for follow up on left foot wound. She has no complaints of fever, chills, nausea or vomiting. - Physical Exam Vitals/I&O's: Vital Signs Temp Pulse Resp BP Pulse Ox 98.1 F 77 16 129/56 H 97 09/04/20 03:30 09/04/20 03:30 09/04/20 03:30 09/04/20 03:30 09/04/20 03:30 Oxygen Flow Rate (L/min) 2 Oxygen Delivery Method Room Air Weight: 90.1 kg Body Mass Index (BMI) 31.6 Finger Stick Blood Glucose 91 Intake and Output for Last 24 Hours 09/02/20 09/03/20 09/04/20 23:59 23:59 23:59 Intake Total 2310 / 2310 1253.33 / 1613.33 625 / 625 Output Total 1350 / 1350 Balance 2310 / 2310 1253.33 / 1613.33 -725 / -725 General: Alert, Oriented x3, Cooperative Extremities: Capillary Refill Less than 3 Seconds, No Calf Tenderness, - - Left foot: Wound to the plantar lateral midfoot down to fascia lower - no active bleeding, the nonviable tissue to the base, but otherwise margins viable, no evidence of ischemia, no cellulitis, no streaking, no maloder, no visible abscess, no crepitus. Psych/Mental Status: Alert and oriented to time, place, person, mood and affect 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 Culture - Final Enterobacter cloacae complex Staphylococcus aureus Staphylococcus haemolyticus Laboratory Results 09/03/20 08:00: Blood Type O POSITIVE, Antibody Screen NEGATIVE, Crossmatch See Detail 09/03/20 11:09: POC Glucose 410 H 09/03/20 16:46: POC Glucose 103 09/03/20 20:14: WBC 9.7, RBC 3.25 L, Hgb 9.4 L, Hct 29.1 L, MCV 89.5, MCH 28.9, MCHC 32.3, RDW Std Deviation 43.7, RDW Coeff of Fior 13.2, Plt Count 321, MPV 10.4, Immature Gran % (Auto) 0.800, Neut % (Auto) 72.7 H, Lymph % (Auto) 17.1 L, [place] % (Auto) 6.2, Eos % (Auto) 2.7, Baso % (Auto) 0.5, Absolute Neuts (auto) 7.0, Absolute Lymphs (auto) 1.65, Nucleated RBC % 0 09/03/20 21:21: POC Glucose 198 H 09/04/20 04:27: WBC 8.5, RBC 3.19 L, Hgb 9.3 L, Hct 28.5 L, MCV 89.3, MCH 29.2, MCHC 32.6, RDW Std Deviation 43.6, RDW Coeff of Fior 13.3, Plt Count 323, MPV 11.0, Immature Gran % (Auto) 1.500 H, Neut % (Auto) 70.6 H, Lymph % (Auto) 19.0, [place] % (Auto) 5.4, Eos % (Auto) 2.8, Baso % (Auto) 0.7, Absolute Neuts (auto) 6.0, Absolute Lymphs (auto) 1.61, Nucleated RBC % 0 09/04/20 04:27: Sodium 140, Potassium 4.1, Chloride 113 H, Carbon Dioxide 21.0, Anion Gap 6, BUN 27 H, Creatinine 1.35 H, Estim Creat Clear Calc 44.08, Est GFR (MDRD) Af Amer 52 L, Est GFR (MDRD) Non-Af 43 L, BUN/Creatinine Ratio 20.0, Glucose 342 H, Calcium 8.4 L 09/04/20 07:02: POC Glucose 359 H Current Medications Acetaminophen (Acetaminophen 325 Mg Tablet) 650 mg PO Q6H PRN PRN PRN Reason: Pain Score 1-10/Temp > 100.7 F Al Hydroxide/Mg Hydroxide (Mag Hydrox/Al Hydrox/Simeth 30 Ml Udc) 30 ml PO Q6H PRN PRN PRN Reason: Gastric Burning Albuterol Sulfate (Albuterol 2.5 Mg/3 Ml Vial.Neb.) 2.5 mg INHALATION Q2H PRN PRN PRN Reason: Dyspnea, wheezing Aspirin (Aspirin E.C. 81 Mg Tablet) 81 mg PO DAILY@0800 [facility] Last Admin: 09/03/20 09:03 Dose: 81 mg Documented by: Atorvastatin Calcium (Atorvastatin Calcium 80 Mg Tablet) 80 mg PO QHS [facility] Last Admin: 09/03/20 21:26 Dose: 80 mg Documented by: Diphenhydramine HCl (Diphenhydramine 50 Mg/Ml Syringe) 25 mg IV Q6H PRN PRN PRN Reason: ITCHING Enoxaparin Sodium (Enoxaparin 40 Mg/0.4 Ml Syringe) 40 mg SC DAILY [facility] Last Admin: 09/02/20 09:25 Dose: 40 mg Documented by: Gabapentin (Gabapentin 300 Mg Capsule) 900 mg PO TIDCM [facility] Last Admin: 09/03/20 17:14 Dose: 900 mg Documented by: Guaifenesin (Guaifenesin 10 Ml Udc (200mg/10ml)) 20 ml PO Q4H PRN PRN PRN Reason: COUGH Hydralazine HCl (Hydralazine 20 Mg/Ml Vial) 10 mg IV Q4H PRN PRN PRN Reason: SBP > 160 Vancomycin IV Pharmacy to Dose (1 ea/ Sodium Chloride) 500 mls @ 250 mls/hr IV X1 PRN; Protocol PRN Reason: Rx to Dose Cefepime HCl 2 gm/ Sodium (Chloride) 100 mls @ 200 mls/hr IV Q12 [facility] Last Infusion: 09/03/20 21:55 Dose: Infused Documented by: Vancomycin HCl 750 mg/ Sodium (Chloride) 265 mls @ 250 mls/hr IV Q12H [facility] Last Infusion: 09/04/20 02:56 Dose: Infused Documented by: Insulin Glargine (Insulin Glargine 100 Units/Ml Pen) 35 units SC BID [facility] Insulin Human Lispro (Insulin Lispro 100 Unit/Ml Insuln.Pen) 20 unit SC TIDCM [facility] Last Admin: 09/03/20 17:17 Dose: 20 units Documented by: Insulin Human Lispro (Insulin Lispro 100 Unit/Ml Insuln.Pen) 0 unit SC ACHS [facility]; Protocol Last Admin: 09/04/20 07:03 Dose: 12 units Documented by: Isosorbide Mononitrate (Isosorbide Mononitrate 30 Mg Tablet) 30 mg PO DAILY [facility] Last Admin: 09/03/20 09:03 Dose: 30 mg Documented by: Magnesium Hydroxide (Magnesium Hydroxide 30 Ml Udc) 30 ml PO DAILY PRN PRN PRN Reason: Constipation Melatonin (Melatonin 3 Mg Tablet) 3 mg PO QHS PRN PRN PRN Reason: INSOMNIA Nitroglycerin (Nitroglycerin (Inpatient Use) 0.4 Mg Tab.Subl) 0.4 mg SUBLINGUAL Q5M PRN PRN Reason: CARDIAC/CHEST PAIN Nutritional Formula ([facility]) [facility] Admin: 09/03/20 17:14 Dose: Not Given Documented by: Nutritional Formula (Lactose Free) (Glucerna Shake 120 Ml Liquid) 120 ml PO 4X/DAY [facility] Last Admin: 09/03/20 21:22 Dose: 120 ml Documented by: Ondansetron HCl (Ondansetron 4 Mg/2 Ml Vial) 4 mg IV Q8H PRN PRN PRN Reason: NAUSEA/VOMITING Oxycodone HCl (Oxycodone 5 Mg Tablet) 5 mg PO Q4H PRN PRN PRN Reason: Pain Score 4-5 Last Admin: 09/03/20 21:26 Dose: 5 mg Documented by: Oxycodone HCl (Oxycodone 5 Mg Tablet) 10 mg PO Q4H PRN PRN PRN Reason: Pain Score 6-10 Last Admin: 09/02/20 21:42 Dose: 10 mg Documented by: Pantoprazole Sodium (Pantoprazole Sodium 40 Mg Tablet) 40 mg PO DAILY [facility] Last Admin: 09/03/20 09:03 Dose: 40 mg Documented by: Paroxetine HCl (Paroxetine 20 Mg Tablet) 20 mg PO QHS [facility] Last Admin: 09/03/20 21:26 Dose: 20 mg Documented by: Polysaccharide Iron Complex (Iron Polysaccharide Complex 150 Mg Capsule) [facility] Last Admin: 09/03/20 09:03 Dose: 150 mg Documented by: Pramipexole Dihydrochloride (Pramipexole Di-Hcl 1 Mg Tablet) [facility] Last Admin: 09/03/20 21:26 Dose: 3 mg Documented by: Prochlorperazine Edisylate (Prochlorperazine 10 Mg/2 Ml Vial) 5 mg IV Q4H PRN PRN PRN Reason: Breakthrough Nausea/Vomiting Psyllium Hydrophilic Mucilloid (Psyllium 1 Packet) 1 packet PO DAILY PRN PRN PRN Reason: Constipation Senna/Docusate Sodium (Senna/Docusate Sodium 1 Tablet) 2 tablet PO BID PRN PRN PRN Reason: Constipation Last Admin: 09/03/20 21:37 Dose: 2 tablet Documented by: Sodium Chloride (0.9% Saline Lock 10 Ml Syringe) 10 - 40 ml IV UD PRN PRN Reason: SALINE FLUSH Last Admin: 09/03/20 21:38 Dose: 10 ml Documented by: Throat Lozenges (Benzocaine/Menthol 1 Lozenge) 1 lozenge MUCOUS MEM Q2H PRN PRN PRN Reason: SORE THROAT Zolpidem Tartrate (Zolpidem Tartrate 5 Mg Tablet) 5 mg PO QHS TAB Last Admin: 09/03/20 21:26 Dose: 5 mg Documented by: Medical Necessity - Tobacco Use Smoking Status: Never smoker Tobacco Use: Non-smoker Assessment/Plan All Active Problems (This Medical Record has been edited. Action required.) Diabetic infection of left foot (Acute) Chest pain (Acute) NSTEMI (non-ST elevated myocardial infarction) (Resolved 09/20/18) History of coronary artery stent placement (Resolved 09/21/18) Abscess of left foot (Resolved) Cellulitis of left foot (Resolved) Chest pain (Resolved) Diabetic foot infection (Resolved) Diarrhea (Resolved) Enteritis, Yersinia enterocolitica (Resolved) Hyperglycemia (Resolved) Intractable nausea and vomiting (Resolved) Malnutrition (Resolved) Necrotizing soft tissue infection (Resolved) Severe sepsis (Resolved) Left plantar foot ulceration down to fascia layer 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 Left foot xrays reviewed, no gas, osteomyelitis unable to be ruled out. MRI was ordered for further evaluation - no noted osteomyelitis, however significant fluid collection noted at site. There was bleeding from bedside debridement, hgb dropped to 6.7; discussed with Dr. Prado, patient received 1 unit, hgb now up to 9.3. Due to anemia plan to hold plavix, address hgb, then plan to proceed with OR debridement likely Tuesday. Change dressing, hemostasis achieved - no active bleeding, cleansed with normal saline soln, applied saline gauze wet to dry - keep clean, dry and intact. Culture reviewed: multiple organisms noted, staph aureus, enterbacter, and Coag Neg Staph - finals pending - continue with IV antibiotics. Reviewed noninvasive lower extremity arterial studies: good arterial flow to foot. No strict weightbearing left foot. Keep foot elevated. Wound care right lateral ankle: small superficial ulcerations: Mepilex dressing changes. Discharge planning: patient will need to be strict nonweightbearing left foot and she feels she will not be capable of that at her daughters, also will need close wound care to foot by nursing. Discussed with Dr. Prado this morning. Podiatry will continue to follow closely.
[2020-09-04] MEDS: oxyCODONE 5 MG Tablet PO ×2 (10:09→21:55)
[2020-09-04] MEDS: Aspirin E.C. 81 MG Tablet PO (10:10)
[2020-09-04] MEDS: Gabapentin 300 MG Capsule 900 MG PO ×3 (10:10→16:39)
[2020-09-04] MEDS: Iron Polysaccharide Complex 150 MG CAPSULE PO (10:11)
[2020-09-04] MEDS: Insulin Lispro 100 UNIT/ML INSULN.PEN 20 UNIT SC ×3 (10:12→16:41)
[2020-09-04] MEDS: Pantoprazole Sodium 40 MG Tablet PO (10:16)
[2020-09-04] MEDS: Isosorbide Mononitrate 30 MG Tablet PO (10:16)
[2020-09-04 11:40] LABS: Bedside Glucose 272 mg/dL (70-110)
--- NOTE | 2020-09-04 12:52 | PCM.PN.HOSP ---
Patient Problems: Active and Suspected Problems (This Medical Record has been edited. Action required.) Diabetic infection of left foot (Acute) Chest pain (Acute) Reason for Visit: diabetic foot infection. Subjective: Does not feel she can go home because is NWB on her left foot. Vitals/I&O's: Vital Signs Temp Pulse Resp BP Pulse Ox 37.2 C 78 18 168/72 H 96 09/04/20 09:30 09/04/20 11:00 09/04/20 09:30 09/04/20 09:30 09/04/20 09:30 Oxygen Flow Rate (L/min) 2 Oxygen Delivery Method Room Air Weight: 90.1 kg Body Mass Index (BMI) 31.6 Finger Stick Blood Glucose 91 Intake and Output for Last 24 Hours 09/02/20 09/03/20 09/04/20 23:59 23:59 23:59 Intake Total 2310 / 2310 1253.33 / 1613.33 1085 / 1085 Output Total 1350 / 1350 Balance 2310 / 2310 1253.33 / 1613.33 -265 / -265 General: Alert, No apparent distress HEENT: Atraumatic, Normocephalic Oral: Moist Mucosa, No Gingival or Mucosal Lesions/ Ulcerations Extremities: - - left foot bandaged--did not remove Psych/Mental Status: Anxious, Flat Affect 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 Culture - Final Enterobacter cloacae complex Staphylococcus aureus Staphylococcus haemolyticus Laboratory Results 09/03/20 08:00: Blood Type O POSITIVE, Antibody Screen NEGATIVE, Crossmatch See Detail 09/03/20 16:46: POC Glucose 103 09/03/20 20:14: WBC 9.7, RBC 3.25 L, Hgb 9.4 L, Hct 29.1 L, MCV 89.5, MCH 28.9, MCHC 32.3, RDW Std Deviation 43.7, RDW Coeff of Fior 13.2, Plt Count 321, MPV 10.4, Immature Gran % (Auto) 0.800, Neut % (Auto) 72.7 H, Lymph % (Auto) 17.1 L, [place] % (Auto) 6.2, Eos % (Auto) 2.7, Baso % (Auto) 0.5, Absolute Neuts (auto) 7.0, Absolute Lymphs (auto) 1.65, Nucleated RBC % 0 09/03/20 21:21: POC Glucose 198 H 09/04/20 04:27: WBC 8.5, RBC 3.19 L, Hgb 9.3 L, Hct 28.5 L, MCV 89.3, MCH 29.2, MCHC 32.6, RDW Std Deviation 43.6, RDW Coeff of Fior 13.3, Plt Count 323, MPV 11.0, Immature Gran % (Auto) 1.500 H, Neut % (Auto) 70.6 H, Lymph % (Auto) 19.0, [place] % (Auto) 5.4, Eos % (Auto) 2.8, Baso % (Auto) 0.7, Absolute Neuts (auto) 6.0, Absolute Lymphs (auto) 1.61, Nucleated RBC % 0 09/04/20 04:27: Sodium 140, Potassium 4.1, Chloride 113 H, Carbon Dioxide 21.0, Anion Gap 6, BUN 27 H, Creatinine 1.35 H, Estim Creat Clear Calc 44.08, Est GFR (MDRD) Af Amer 52 L, Est GFR (MDRD) Non-Af 43 L, BUN/Creatinine Ratio 20.0, Glucose 342 H, Calcium 8.4 L 09/04/20 07:02: POC Glucose 359 H 09/04/20 11:27: POC Glucose 272 H Current Medications Acetaminophen (Acetaminophen 325 Mg Tablet) 650 mg PO Q6H PRN PRN PRN Reason: Pain Score 1-10/Temp > 100.7 F Al Hydroxide/Mg Hydroxide (Mag Hydrox/Al Hydrox/Simeth 30 Ml Udc) 30 ml PO Q6H PRN PRN PRN Reason: Gastric Burning Albuterol Sulfate (Albuterol 2.5 Mg/3 Ml Vial.Neb.) 2.5 mg INHALATION Q2H PRN PRN PRN Reason: Dyspnea, wheezing Aspirin (Aspirin E.C. 81 Mg Tablet) 81 mg PO DAILY@0800 [facility] Last Admin: 09/04/20 10:10 Dose: 81 mg Documented by: Atorvastatin Calcium (Atorvastatin Calcium 80 Mg Tablet) 80 mg PO QHS [facility] Last Admin: 09/03/20 21:26 Dose: 80 mg Documented by: Diphenhydramine HCl (Diphenhydramine 50 Mg/Ml Syringe) 25 mg IV Q6H PRN PRN PRN Reason: ITCHING Enoxaparin Sodium (Enoxaparin 40 Mg/0.4 Ml Syringe) 40 mg SC DAILY [facility] Last Admin: 09/04/20 10:27 Dose: Not Given Documented by: Gabapentin (Gabapentin 300 Mg Capsule) 900 mg PO TIDCM [facility] Last Admin: 09/04/20 12:17 Dose: 900 mg Documented by: Guaifenesin (Guaifenesin 10 Ml Udc (200mg/10ml)) 20 ml PO Q4H PRN PRN PRN Reason: COUGH Hydralazine HCl (Hydralazine 20 Mg/Ml Vial) 10 mg IV Q4H PRN PRN PRN Reason: SBP > 160 Vancomycin IV Pharmacy to Dose (1 ea/ Sodium Chloride) 500 mls @ 250 mls/hr IV X1 PRN; Protocol PRN Reason: Rx to Dose Cefepime HCl 2 gm/ Sodium (Chloride) 100 mls @ 200 mls/hr IV Q12 [facility] Last Infusion: 09/04/20 11:33 Dose: Infused Documented by: Vancomycin HCl 750 mg/ Sodium (Chloride) 265 mls @ 250 mls/hr IV Q12H [facility] Last Infusion: 09/04/20 02:56 Dose: Infused Documented by: Insulin Glargine (Insulin Glargine 100 Units/Ml Pen) 35 units SC BID [facility] Last Admin: 09/04/20 10:22 Dose: 35 u Documented by: Insulin Human Lispro (Insulin Lispro 100 Unit/Ml Insuln.Pen) 20 unit SC TIDCM [facility] Last Admin: 09/04/20 12:17 Dose: 20 units Documented by: Insulin Human Lispro (Insulin Lispro 100 Unit/Ml Insuln.Pen) 0 unit SC ACHS [facility]; Protocol Last Admin: 09/04/20 12:18 Dose: 9 units Documented by: Isosorbide Mononitrate (Isosorbide Mononitrate 30 Mg Tablet) 30 mg PO DAILY [facility] Last Admin: 09/04/20 10:16 Dose: 30 mg Documented by: Magnesium Hydroxide (Magnesium Hydroxide 30 Ml Udc) 30 ml PO DAILY PRN PRN PRN Reason: Constipation Melatonin (Melatonin 3 Mg Tablet) 3 mg PO QHS PRN PRN PRN Reason: INSOMNIA Nitroglycerin (Nitroglycerin (Inpatient Use) 0.4 Mg Tab.Subl) 0.4 mg SUBLINGUAL Q5M PRN PRN Reason: CARDIAC/CHEST PAIN Nutritional Formula ([facility]) [facility] Admin: 09/04/20 10:11 Dose: Not Given Documented by: Nutritional Formula (Lactose Free) (Glucerna Shake 120 Ml Liquid) 120 ml PO 4X/DAY [facility] Last Admin: 09/04/20 10:16 Dose: Not Given Documented by: Ondansetron HCl (Ondansetron 4 Mg/2 Ml Vial) 4 mg IV Q8H PRN PRN PRN Reason: NAUSEA/VOMITING Oxycodone HCl (Oxycodone 5 Mg Tablet) 5 mg PO Q4H PRN PRN PRN Reason: Pain Score 4-5 Last Admin: 09/04/20 10:09 Dose: 5 mg Documented by: Oxycodone HCl (Oxycodone 5 Mg Tablet) 10 mg PO Q4H PRN PRN PRN Reason: Pain Score 6-10 Last Admin: 09/02/20 21:42 Dose: 10 mg Documented by: Pantoprazole Sodium (Pantoprazole Sodium 40 Mg Tablet) 40 mg PO DAILY [facility] Last Admin: 09/04/20 10:16 Dose: 40 mg Documented by: Paroxetine HCl (Paroxetine 20 Mg Tablet) 20 mg PO QHS [facility] Last Admin: 09/03/20 21:26 Dose: 20 mg Documented by: Polysaccharide Iron Complex (Iron Polysaccharide Complex 150 Mg [facility]apsule) [facility] Last Admin: 09/04/20 10:11 Dose: 150 mg Documented by: Pramipexole Dihydrochloride (Pramipexole Di-Hcl 1 Mg Tablet) [facility] Last Admin: 09/03/20 21:26 Dose: 3 mg Documented by: Prochlorperazine Edisylate (Prochlorperazine 10 Mg/2 Ml Vial) 5 mg IV Q4H PRN PRN PRN Reason: Breakthrough Nausea/Vomiting Psyllium Hydrophilic Mucilloid (Psyllium 1 Packet) 1 packet PO DAILY PRN PRN PRN Reason: Constipation Senna/Docusate Sodium (Senna/Docusate Sodium 1 Tablet) 2 tablet PO BID PRN PRN PRN Reason: Constipation Last Admin: 09/03/20 21:37 Dose: 2 tablet Documented by: Sodium Chloride (0.9% Saline Lock 10 Ml Syringe) 10 - 40 ml IV UD PRN PRN Reason: SALINE FLUSH Last Admin: 09/03/20 21:38 Dose: 10 ml Documented by: Throat Lozenges (Benzocaine/Menthol 1 Lozenge) 1 lozenge MUCOUS MEM Q2H PRN PRN PRN Reason: SORE THROAT Zolpidem Tartrate (Zolpidem Tartrate 5 Mg Tablet) 5 mg PO QHS TAB Last Admin: 09/03/20 21:26 Dose: 5 mg Documented by: STROKE Vital Signs/Narrative: Vital Signs Temp Pulse Resp BP Pulse Ox 09/04/20 11:00 78 09/04/20 09:30 37.2 C 79 18 168/72 H 96 Medical Necessity - Tobacco Use Smoking Status: Never smoker Tobacco Use: Non-smoker Assessment/Plan All Active Problems (This Medical Record has been edited. Action required.) Diabetic infection of left foot (Acute) Chest pain (Acute) NSTEMI (non-ST elevated myocardial infarction) (Resolved 09/20/18) History of coronary artery stent placement (Resolved 09/21/18) Abscess of left foot (Resolved) Cellulitis of left foot (Resolved) Chest pain (Resolved) Diabetic foot infection (Resolved) Diarrhea (Resolved) Enteritis, Yersinia enterocolitica (Resolved) Hyperglycemia (Resolved) Intractable nausea and vomiting (Resolved) Malnutrition (Resolved) Necrotizing soft tissue infection (Resolved) Severe sepsis (Resolved) 1. chest pain: stress negative. suspect costochondritis v reflux. Reviewed CTA and stress with patient. Started PPI. may need GI follow up. 2. Left foot diabetic infected ulcer: s/p debridement. MRI did not show osteomyelitis. follow up cultures, thus far growing out Enterobacter, S. andry and [employer]. continue pip/tazo and vancomycin. CAROLYNE Guadarrama, plan for debridement next week as pt had significant bleeding from prior debridement. As it is non-emergent, hold clopidogrel until surgery. CAROLYNE Guadarrama, plan for further debridement on 09/08 3. ABLA: stable s/p 2 units PRBCs 4. LLE edema: improved per patient. Duplex negative. 5. DM2, uncontrolled. A1c 9.8. On glargine and SSI log with meals. Increase glargine to 35 BID 6. VTE prophylaxis: SCDs. hold enoxaparin given anemia. Inpatient E&M: 21785 Subs Hosp L1
[2020-09-04] MEDS: Glucerna Shake 120 ML LIQUID PO ×2 (16:41→21:55)
[2020-09-04 16:50] LABS: Bedside Glucose 226 mg/dL (70-110)
[2020-09-04] MEDS: Zolpidem Tartrate 5 MG Tablet PO (21:55)
[2020-09-04] MEDS: Pramipexole Di-HCl 1 MG Tablet 3 MG PO (22:00)
[2020-09-04] MEDS: Atorvastatin Calcium 80 MG Tablet PO (22:00)
[2020-09-04] MEDS: Paroxetine 20 MG Tablet PO (22:01)
[2020-09-04 22:40] LABS: Bedside Glucose 220 mg/dL (70-110)
[2020-09-04] MEDS: 0.9% Saline Lock 10 ML Syringe IV (23:40)
[2020-09-04] MEDS: Senna/Docusate Sodium 1 Tablet 2 TABLET PO (23:40)
[2020-09-04] MEDS: Ondansetron 4 MG/2 ML Vial IV (23:40)
[2020-09-05] VITALS (9 sets, daily range): BP systolic 119–189; BP diastolic 57–82; PULSE 74–84; RESP 16–18; TEMP 36.4–36.9; O2SAT 97–99
[2020-09-05 06:16] LABS: Absolute Neutrophil Count 6.5 X10^3/uL (2.0-7.7); Basophil# 0.05 X10^3/uL; Basophil% 0.6 % (0-1); Eosinophil# 0.22 X10^3/uL; Eosinophils% 2.5 % (0-5); Hematocrit 30.9 % (37-47); Hemoglobin 9.8 g/dL (12.0-15.0); Lymphocyte % 15.9 % (19-41); Mean Corp Hgb Conc 31.7 g/dL (32-36); Mean Corpuscular Hgb 28.7 pg (27.0-32.0); Mean Corpuscular Volume 90.4 fL (81-99); Mean Platelet Vol. 10.9 fl (6.2-12.0); Monocyte# 0.54 X10^3/uL; Monocyte% 6.1 % (0-10); NRBC Flagged by Analyzer 0 % (0-5); Neutrophil # 6.53 X10^3/uL (2.7-7.7); Neutrophil % 74.2 % (47-70); Platelet Count 334 K/mm3 (150-450); RBC Distribution Width CV 13.4 % (11.6-14.6); RBC Distribution Width SD 43.9 fl (35.1-43.9); Red Blood Count 3.42 M/mm3 (4.2-5.4); White Blood Count 8.8 K/mm3 (4.4-11.0)
[2020-09-05 06:37] LABS: Anion Gap 5 (5-15); BUN 29 mg/dL (7-18); BUN/Creat Ratio 22.8 RATIO (10-20); Calcium,Total 8.5 mg/dL (8.5-10.1); Chloride 112 mmol/L (98-107); Creatinine, Serum 1.27 mg/dL (0.55-1.02); EST Glomerular Filtration Rate 46 mL/min (>60); Est Glom Filt Rate - Afr Amer 56 mL/min (>60); Estimated Creatinine Clearance 46.86 ml/min; Glucose 292 mg/dL (74-106); Potassium 4.3 mmol/L (3.5-5.1); Sodium Level 141 mmol/L (136-145)
[2020-09-05 07:06] LABS: Bedside Glucose 301 mg/dL (70-110)
--- NOTE | 2020-09-05 08:27 | PN_ITS ---
Patient Problems: Active and Suspected Problems (This Medical Record has been edited. Action required.) Diabetic infection of left foot (Acute) Chest pain (Acute) Subjective: Patient was seen this morning for follow up on left foot. Patient resting in bed, no complaints. No complaints of fever, chills, nausea or vomiting, no blee ding from foot. I was called by case management/social work today an they were asking about discharge, relates patient will be on oral antibiotics and states physical therapy does not recommend physical therapy at discharge so patient does not qualify for nursing facility placement. - Physical Exam Vitals/I&O's: Vital Signs Temp Pulse Resp BP Pulse Ox 98.5 F 80 18 160/70 H 97 09/05/20 03:44 09/05/20 03:44 09/05/20 03:44 09/05/20 03:44 09/05/20 03:44 Oxygen Flow Rate (L/min) 2 Oxygen Delivery Method Room Air Weight: 90 kg Body Mass Index (BMI) 31.6 Finger Stick Blood Glucose 91 Intake and Output for Last 24 Hours 09/03/20 09/04/20 09/05/20 23:59 23:59 23:59 Intake Total 1253.33 / 1613.33 2290 / 2290 865 / 865 Output Total 1350 / 1350 1075 / 1075 Balance 1253.33 / 1613.33 940 / 940 -210 / -210 General: Alert, Oriented x3, Cooperative, No apparent distress Extremities: Capillary Refill Less than 3 Seconds, No Calf Tenderness, - - Left foot: Stable wound to the plantar lateral midfoot down to fascia lower - no active bleeding, there is nonviable tissue to the base, but otherwise margins viable, no evidence of ischemia, no cellulitis, no streaking, no maloder, no visible abscess, no crepitus. Psych/Mental Status: Alert and oriented to time, place, person, mood and affect 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 Culture - Final Enterobacter cloacae complex Staphylococcus aureus Staphylococcus haemolyticus Laboratory Results 09/04/20 11:27: POC Glucose 272 H 09/04/20 16:37: POC Glucose 226 H 09/04/20 22:00: POC Glucose 220 H 09/05/20 05:20: WBC 8.8, RBC 3.42 L, Hgb 9.8 L, Hct 30.9 L, MCV 90.4, MCH 28.7, MCHC 31.7 L, RDW Std Deviation 43.9, RDW Coeff of Fior 13.4, Plt Count 334, MPV 10.9, Immature Gran % (Auto) 0.700, Neut % (Auto) 74.2 H, Lymph % (Auto) 15.9 L, [place] % (Auto) 6.1, Eos % (Auto) 2.5, Baso % (Auto) 0.6, Absolute Neuts (auto) 6.5, Absolute Lymphs (auto) 1.40, Nucleated RBC % 0 09/05/20 05:20: Sodium 141, Potassium 4.3, Chloride 112 H, Carbon Dioxide 24.0, Anion Gap 5, BUN 29 H, Creatinine 1.27 H, Estim Creat Clear Calc 46.86, Est GFR (MDRD) Af Amer 56 L, Est GFR (MDRD) Non-Af 46 L, BUN/Creatinine Ratio 22.8 H, Glucose 292 H, Calcium 8.5 09/05/20 06:46: POC Glucose 301 H Current Medications Acetaminophen (Acetaminophen 325 Mg Tablet) 650 mg PO Q6H PRN PRN PRN Reason: Pain Score 1-10/Temp > 100.7 F Al Hydroxide/Mg Hydroxide (Mag Hydrox/Al Hydrox/Simeth 30 Ml Udc) 30 ml PO Q6H PRN PRN PRN Reason: Gastric Burning Albuterol Sulfate (Albuterol 2.5 Mg/3 Ml Vial.Neb.) 2.5 mg INHALATION Q2H PRN PRN PRN Reason: Dyspnea, wheezing Aspirin (Aspirin E.C. 81 Mg Tablet) 81 mg PO DAILY@0800 [facility] Last Admin: 09/04/20 10:10 Dose: 81 mg Documented by: Atorvastatin Calcium (Atorvastatin Calcium 80 Mg Tablet) 80 mg PO QHS [facility] Last Admin: 09/04/20 22:00 Dose: 80 mg Documented by: Diphenhydramine HCl (Diphenhydramine 50 Mg/Ml Syringe) 25 mg IV Q6H PRN PRN PRN Reason: ITCHING Enoxaparin Sodium (Enoxaparin 40 Mg/0.4 Ml Syringe) 40 mg SC DAILY [facility] Last Admin: 09/04/20 10:27 Dose: Not Given Documented by: Gabapentin (Gabapentin 300 Mg Capsule) 900 mg PO TIDCM [facility] Last Admin: 09/04/20 16:39 Dose: 900 mg Documented by: Guaifenesin (Guaifenesin 10 Ml Udc (200mg/10ml)) 20 ml PO Q4H PRN PRN PRN Reason: COUGH Hydralazine HCl (Hydralazine 20 Mg/Ml Vial) 10 mg IV Q4H PRN PRN PRN Reason: SBP > 160 Vancomycin HCl 750 mg/ Sodium (Chloride) 265 mls @ 250 mls/hr IV Q12H [facility] Last Infusion: 09/05/20 03:45 Dose: Infused Documented by: Sodium Chloride () 250 mls @ 15 mls/hr IV .[id number] PRN PRN Reason: Saline Flush Last Admin: 09/04/20 23:40 Dose: 15 mls/hr Documented by: Sodium Chloride () 250 mls @ 15 mls/hr IV .[id number] PRN PRN Reason: Additional IVPB Infusion Sodium Chloride () 250 mls @ 15 mls/hr IV .[id number] PRN PRN Reason: Saline Flush Sodium Chloride () 250 mls @ 15 mls/hr IV .[id number] PRN PRN Reason: Additional IVPB Infusion Insulin Glargine (Insulin Glargine 100 Units/Ml Pen) 35 units SC BID [facility] Last Admin: 09/04/20 22:00 Dose: 35 u Documented by: Insulin Human Lispro (Insulin Lispro 100 Unit/Ml Insuln.Pen) [facility] Last Admin: 09/04/20 16:41 Dose: 20 units Documented by: Insulin Human Lispro (Insulin Lispro 100 Unit/Ml Insuln.Pen) 0 unit SC [facility]; Protocol Last Admin: 09/04/20 22:01 Dose: 6 units Documented by: Isosorbide Mononitrate (Isosorbide Mononitrate 30 Mg Tablet) 30 mg PO DAILY [facility] Last Admin: 09/04/20 10:16 Dose: 30 mg Documented by: Magnesium Hydroxide (Magnesium Hydroxide 30 Ml Udc) 30 ml PO DAILY PRN PRN PRN Reason: Constipation Melatonin (Melatonin 3 Mg Tablet) 3 mg PO QHS PRN PRN PRN Reason: INSOMNIA Nitroglycerin (Nitroglycerin (Inpatient Use) 0.4 Mg Tab.Subl) 0.4 mg SUBLINGUAL Q5M PRN PRN Reason: CARDIAC/CHEST PAIN Nutritional Formula (Nutritional Supplement (Ted) Packet) [facility] Last Admin: 09/04/20 16:39 Dose: Not Given Documented by: Nutritional Formula (Lactose Free) (Glucerna Shake 120 Ml Liquid) 120 ml PO 4X/DAY [facility] Last Admin: 09/04/20 21:55 Dose: 120 ml Documented by: Ondansetron HCl (Ondansetron 4 Mg/2 Ml Vial) 4 mg IV Q8H PRN PRN PRN Reason: NAUSEA/VOMITING Last Admin: 09/04/20 23:40 Dose: 4 mg Documented by: Oxycodone HCl (Oxycodone 5 Mg Tablet) 5 mg PO Q4H PRN PRN PRN Reason: Pain Score 4-5 Last Admin: 09/04/20 21:55 Dose: 5 mg Documented by: Oxycodone HCl (Oxycodone 5 Mg Tablet) 10 mg PO Q4H PRN PRN PRN Reason: Pain Score 6-10 Last Admin: 09/02/20 21:42 Dose: 10 mg Documented by: Pantoprazole Sodium (Pantoprazole Sodium 40 Mg Tablet) 40 mg PO DAILY [facility] Last Admin: 09/04/20 10:16 Dose: 40 mg Documented by: Paroxetine HCl (Paroxetine 20 Mg Tablet) 20 mg PO QHS [facility] Last Admin: 09/04/20 22:01 Dose: 20 mg Documented by: Polysaccharide Iron Complex (Iron Polysaccharide Complex 150 Mg Capsule) 150 [facility] Last Admin: 09/04/20 10:11 Dose: 150 mg Documented by: Pramipexole Dihydrochloride (Pramipexole Di-Hcl 1 Mg Tablet) [facility] Last Admin: 09/04/20 22:00 Dose: 3 mg Documented by: Prochlorperazine Edisylate (Prochlorperazine 10 Mg/2 Ml Vial) 5 mg IV Q4H PRN PRN PRN Reason: Breakthrough Nausea/Vomiting Psyllium Hydrophilic Mucilloid (Psyllium 1 Packet) 1 packet PO DAILY PRN PRN PRN Reason: Constipation Senna/Docusate Sodium (Senna/Docusate Sodium 1 Tablet) 2 tablet PO BID PRN PRN PRN Reason: Constipation Last Admin: 09/04/20 23:40 Dose: 2 tablet Documented by: Sodium Chloride (0.9% Saline Lock 10 Ml Syringe) 10 - 40 ml IV UD PRN PRN Reason: SALINE FLUSH Last Admin: 09/04/20 23:40 Dose: 10 ml Documented by: Sodium Chloride (0.9% Saline Lock 10 Ml Syringe) 10 - 40 ml IV UD PRN PRN Reason: SALINE FLUSH Throat Lozenges (Benzocaine/Menthol 1 Lozenge) 1 lozenge MUCOUS MEM Q2H PRN PRN PRN Reason: SORE THROAT Trimethoprim/Sulfamethoxazole (Smz/Tmp Ds Tablet) 1 tablet PO BID TAB Zolpidem Tartrate (Zolpidem Tartrate 5 Mg Tablet) 5 mg PO QHS TAB Last Admin: 09/04/20 21:55 Dose: 5 mg Documented by: Medical Necessity - Tobacco Use Smoking Status: Never smoker Tobacco Use: Non-smoker Assessment/Plan All Active Problems (This Medical Record has been edited. Action required.) Diabetic infection of left foot (Acute) Chest pain (Acute) NSTEMI (non-ST elevated myocardial infarction) (Resolved 09/20/18) History of coronary artery stent placement (Resolved 09/21/18) Abscess of left foot (Resolved) Cellulitis of left foot (Resolved) Chest pain (Resolved) Diabetic foot infection (Resolved) Diarrhea (Resolved) Enteritis, Yersinia enterocolitica (Resolved) Hyperglycemia (Resolved) Intractable nausea and vomiting (Resolved) Malnutrition (Resolved) Necrotizing soft tissue infection (Resolved) Severe sepsis (Resolved) Left plantar foot ulceration down to fascia layer 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 Left foot xrays reviewed, no gas, osteomyelitis unable to be ruled out. MRI was ordered for further evaluation - no noted osteomyelitis, however significant fluid collection noted at site. There was bleeding from bedside debridement, hgb dropped to 6.7; discussed with Dr. Prado, patient received 1 unit, hgb now up. Due to anemia plan to hold plavix, address hgb, then plan to proceed with OR debridement likely Tuesday. Changed dressing today, hemostasis achieved - no active bleeding, cleansed with normal saline soln, applied saline gauze wet to dry - keep clean, dry and intact. Culture reviewed: multiple organisms noted, staph aureus, enterbacter, and staph hemolyticus - antibiotic switched to oral Bactrim. Reviewed noninvasive lower extremity arterial studies: good arterial flow to foot. No strict weightbearing left foot. Keep foot elevated. Wound care right lateral ankle: small superficial ulcerations: Mepilex dressing changes. Discharge planning: patient will need to be strict nonweightbearing left foot - per PT patient did well with nonweightbearing, also will need close wound care to foot by nursing. Podiatry will continue to follow closely.
--- NOTE | 2020-09-05 09:06 | CASEMGMT ---
SW spoke w/physician that pt is now stating that to physician that she needs to go somewhere for rehab rather than home. SW reviewed PT/OT, pt was discharged from these services here in the hospital. Pt will need dressing changes once per day, and is on oral antibiotics. Based on this, it does not seem pt would qualify under insurance to go to a prison facility. SW spoke w/pt in room in regard to plan. Initially pt stating she wants to go to a longterm, she decided after speaking w/physician she should go to a longterm. SW explained that based on pt's therapy, she would likely not qualify under insurance to go to a longterm. After two discussions w/pt, she states would prefer to go home but states she is needing help to get to the bathroom. She states her daughter works so would be home by herself during the day. RN in room as well, clarified w/pt what help she is getting to go to bathroom. Staff has been standing by pt to make sure she doesn't fall, not actually helping her. SW explained we can re-order therapy if needed to reassess, and SW also gave pt list of nursing homes in area that take pt's insurance should this end up being needed and pt qualifies. Pt also states physician was planning to keep pt here through the weekend and she is to have an I&D on Tuesday. Physician is here now to see pt, will continue to review most appropriate discharge plan for pt. FRANCISCO Elaine
[2020-09-05] MEDS: Insulin Lispro 100 UNIT/ML INSULN.PEN SC ×4 (09:11→21:31)
[2020-09-05] MEDS: Insulin Lispro 100 UNIT/ML INSULN.PEN 20 UNIT SC ×3 (09:11→16:13)
[2020-09-05] MEDS: Aspirin E.C. 81 MG Tablet PO (09:12)
[2020-09-05] MEDS: Iron Polysaccharide Complex 150 MG CAPSULE PO (09:12)
[2020-09-05] MEDS: Gabapentin 300 MG Capsule 900 MG PO ×3 (09:12→16:18)
[2020-09-05] MEDS: Isosorbide Mononitrate 30 MG Tablet PO (09:13)
[2020-09-05] MEDS: Pantoprazole Sodium 40 MG Tablet PO (09:13)
[2020-09-05] MEDS: Glucerna Shake 120 ML LIQUID PO ×4 (09:15→21:31)
[2020-09-05] MEDS: hydrALAZINE 20 MG/ML Vial 10 MG IV (09:16)
[2020-09-05] MEDS: Smz/Tmp Ds Tablet 1 TABLET PO ×2 (10:56→16:18)
--- NOTE | 2020-09-05 11:31 | CASEMGMT ---
Plan now is for pt to be here through the weekend and have and I&D Tuesday. SW let pt know, and explained that pt will be here through the , will reassess Tuesday for the most appropriate discharge plan. FRANCISCO Elaine
--- NOTE | 2020-09-05 11:34 | CASEMGMT ---
KELSIE IRELAND NOTE: Per Dr Guadarrama, he states wound is extensive enough that he does not feel pt should do daily dressing changes and per pt, she states her daughter would not be willing to do the dressing changes either. Call placed to [facility] and spoke w/Sofiya. They are not able to provide SN daily for dressing changes. She was made aware of possible wound vac application. She states they can provide SN for wound vac, but would not be able to start HHC until Tuesday. Dr Prado made aware of this and states pt will not be discharged this weekend. Call placed back to [facility] and spoke w/Sarah. She was made aware that pt will not be discharged until next week. Dr Guadarrama made aware of above. He states will cancel wound vac and he will continue to do daily dressing changes and plans to do ID on Tuesday. Dr Guadarrama has changed the dressing today and states he will be in tomorrow to change the dressing. Yen IGLESIAS, made aware. Delta MANLEY RN, CM
[2020-09-05 11:56] LABS: Bedside Glucose 336 mg/dL (70-110)
--- NOTE | 2020-09-05 12:36 | PCM.PN.HOSP ---
Patient Problems: Active and Suspected Problems (This Medical Record has been edited. Action required.) Diabetic infection of left foot (Acute) Chest pain (Acute) Reason for Visit: diabetic foot. Subjective: No further chest pain. Vitals/I&O's: Vital Signs Temp Pulse Resp BP Pulse Ox 36.7 C 84 18 189/82 H 97 09/05/20 09:06 09/05/20 09:16 09/05/20 09:06 09/05/20 09:06 09/05/20 09:06 Oxygen Flow Rate (L/min) 2 Oxygen Delivery Method Room Air Weight: 90 kg Body Mass Index (BMI) 31.6 Finger Stick Blood Glucose 91 Intake and Output for Last 24 Hours 09/03/20 09/04/20 09/05/20 23:59 23:59 23:59 Intake Total 1253.33 / 1613.33 2290 / 2290 1410.5 / 1410.5 Output Total 1350 / 1350 1375 / 1375 Balance 1253.33 / 1613.33 940 / 940 35.5 / 35.5 General: Alert, No apparent distress HEENT: Atraumatic, Normocephalic Extremities: - - left foot wrapped, did not remove. Psych/Mental Status: Normal Affect, Appropriate 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 Culture - Final Enterobacter cloacae complex Staphylococcus aureus Staphylococcus haemolyticus Laboratory Results 09/04/20 16:37: POC Glucose 226 H 09/04/20 22:00: POC Glucose 220 H 09/05/20 05:20: WBC 8.8, RBC 3.42 L, Hgb 9.8 L, Hct 30.9 L, MCV 90.4, MCH 28.7, MCHC 31.7 L, RDW Std Deviation 43.9, RDW Coeff of Fior 13.4, Plt Count 334, MPV 10.9, Immature Gran % (Auto) 0.700, Neut % (Auto) 74.2 H, Lymph % (Auto) 15.9 L, [place] % (Auto) 6.1, Eos % (Auto) 2.5, Baso % (Auto) 0.6, Absolute Neuts (auto) 6.5, Absolute Lymphs (auto) 1.40, Nucleated RBC % 0 09/05/20 05:20: Sodium 141, Potassium 4.3, Chloride 112 H, Carbon Dioxide 24.0, Anion Gap 5, BUN 29 H, Creatinine 1.27 H, Estim Creat Clear Calc 46.86, Est GFR (MDRD) Af Amer 56 L, Est GFR (MDRD) Non-Af 46 L, BUN/Creatinine Ratio 22.8 H, Glucose 292 H, Calcium 8.5 09/05/20 06:46: POC Glucose 301 H 09/05/20 11:47: POC Glucose 336 H Current Medications Acetaminophen (Acetaminophen 325 Mg Tablet) 650 mg PO Q6H PRN PRN PRN Reason: Pain Score 1-10/Temp > 100.7 F Al Hydroxide/Mg Hydroxide (Mag Hydrox/Al Hydrox/Simeth 30 Ml Udc) 30 ml PO Q6H PRN PRN PRN Reason: Gastric Burning Albuterol Sulfate (Albuterol 2.5 Mg/3 Ml Vial.Neb.) 2.5 mg INHALATION Q2H PRN PRN PRN Reason: Dyspnea, wheezing Aspirin (Aspirin E.C. 81 Mg Tablet) 81 mg PO DAILY@0800 [facility] Last Admin: 09/05/20 09:12 Dose: 81 mg Documented by: Atorvastatin Calcium (Atorvastatin Calcium 80 Mg Tablet) 80 mg PO QHS [facility] Last Admin: 09/04/20 22:00 Dose: 80 mg Documented by: Diphenhydramine HCl (Diphenhydramine 50 Mg/Ml Syringe) 25 mg IV Q6H PRN PRN PRN Reason: ITCHING Enoxaparin Sodium (Enoxaparin 40 Mg/0.4 Ml Syringe) 40 mg SC DAILY [facility] Last Admin: 09/05/20 09:13 Dose: Not Given Documented by: Gabapentin (Gabapentin 300 Mg Capsule) 900 mg PO TIDCM [facility] Last Admin: 09/05/20 11:50 Dose: 900 mg Documented by: Guaifenesin (Guaifenesin 10 Ml Udc (200mg/10ml)) 20 ml PO Q4H PRN PRN PRN Reason: COUGH Hydralazine HCl (Hydralazine 20 Mg/Ml Vial) 10 mg IV Q4H PRN PRN PRN Reason: SBP > 160 Last Admin: 09/05/20 09:16 Dose: 10 mg Documented by: Vancomycin HCl 750 mg/ Sodium (Chloride) 265 mls @ 250 mls/hr IV Q12H [facility] Last Infusion: 09/05/20 03:45 Dose: Infused Documented by: Sodium Chloride () 250 mls @ 15 mls/hr IV .[id number] PRN PRN Reason: Saline Flush Last Infusion: 09/05/20 09:22 Dose: 0 mls/hr Documented by: Sodium Chloride () 250 mls @ 15 mls/hr IV .[id number] PRN PRN Reason: Additional IVPB Infusion Sodium Chloride () 250 mls @ 15 mls/hr IV .[id number] PRN PRN Reason: Saline Flush Sodium Chloride () 250 mls @ 15 mls/hr IV .[id number] PRN PRN Reason: Additional IVPB Infusion Insulin Glargine (Insulin Glargine 100 Units/Ml Pen) 35 units SC BID [facility] Last Admin: 09/05/20 09:11 Dose: 35 u Documented by: Insulin Human Lispro (Insulin Lispro 100 Unit/Ml Insuln.Pen) 20 unit SC TIDCM [facility] Last Admin: 09/05/20 11:48 Dose: 20 units Documented by: Insulin Human Lispro (Insulin Lispro 100 Unit/Ml Insuln.Pen) 0 unit SC ACHS [facility]; Protocol Last Admin: 09/05/20 11:49 Dose: 12 units Documented by: Isosorbide Mononitrate (Isosorbide Mononitrate 30 Mg Tablet) 30 mg PO DAILY [facility] Last Admin: 09/05/20 09:13 Dose: 30 mg Documented by: Magnesium Hydroxide (Magnesium Hydroxide 30 Ml Udc) 30 ml PO DAILY PRN PRN PRN Reason: Constipation Melatonin (Melatonin 3 Mg Tablet) 3 mg PO QHS PRN PRN PRN Reason: INSOMNIA Nitroglycerin (Nitroglycerin (Inpatient Use) 0.4 Mg Tab.Subl) 0.4 mg SUBLINGUAL Q5M PRN PRN Reason: CARDIAC/CHEST PAIN Nutritional Formula (Nutritional Supplement (Ted) Packet) 1 packet PO BIDCM [facility] Last Admin: 09/05/20 09:12 Dose: 1 packet Documented by: Nutritional Formula (Lactose Free) (Glucerna Shake 120 Ml Liquid) 120 ml PO 4X/DAY [facility] Last Admin: 09/05/20 09:15 Dose: 120 ml Documented by: Ondansetron HCl (Ondansetron 4 Mg/2 Ml Vial) 4 mg IV Q8H PRN PRN PRN Reason: NAUSEA/VOMITING Last Admin: 09/04/20 23:40 Dose: 4 mg Documented by: Oxycodone HCl (Oxycodone 5 Mg Tablet) 5 mg PO Q4H PRN PRN PRN Reason: Pain Score 4-5 Last Admin: 09/04/20 21:55 Dose: 5 mg Documented by: Oxycodone HCl (Oxycodone 5 Mg Tablet) 10 mg PO Q4H PRN PRN PRN Reason: Pain Score 6-10 Last Admin: 09/02/20 21:42 Dose: 10 mg Documented by: Pantoprazole Sodium (Pantoprazole Sodium 40 Mg Tablet) 40 mg PO DAILY [facility] Last Admin: 09/05/20 09:13 Dose: 40 mg Documented by: Paroxetine HCl (Paroxetine 20 Mg Tablet) 20 mg PO QHS [facility] Last Admin: 09/04/20 22:01 Dose: 20 mg Documented by: Polysaccharide Iron Complex (Iron Polysaccharide Complex 150 Mg Capsule) [facility] Last Admin: 09/05/20 09:12 Dose: 150 mg Documented by: Pramipexole Dihydrochloride (Pramipexole Di-Hcl 1 Mg Tablet) [facility] Last Admin: 09/04/20 22:00 Dose: 3 mg Documented by: Prochlorperazine Edisylate (Prochlorperazine 10 Mg/2 Ml Vial) 5 mg IV Q4H PRN PRN PRN Reason: Breakthrough Nausea/Vomiting Psyllium Hydrophilic Mucilloid (Psyllium 1 Packet) 1 packet PO DAILY PRN PRN PRN Reason: Constipation Senna/Docusate Sodium (Senna/Docusate Sodium 1 Tablet) 2 tablet PO BID PRN PRN PRN Reason: Constipation Last Admin: 09/04/20 23:40 Dose: 2 tablet Documented by: Sodium Chloride (0.9% Saline Lock 10 Ml Syringe) 10 - 40 ml IV UD PRN PRN Reason: SALINE FLUSH Last Admin: 09/04/20 23:40 Dose: 10 ml Documented by: Sodium Chloride (0.9% Saline Lock 10 Ml Syringe) 10 - 40 ml IV UD PRN PRN Reason: SALINE FLUSH Throat Lozenges (Benzocaine/Menthol 1 Lozenge) 1 lozenge MUCOUS MEM Q2H PRN PRN PRN Reason: SORE THROAT Trimethoprim/Sulfamethoxazole (Smz/Tmp Ds Tablet) 1 tablet PO BIDCM [facility] Last Admin: 09/05/20 10:56 Dose: 1 tablet Documented by: Zolpidem Tartrate (Zolpidem Tartrate 5 Mg Tablet) 5 mg PO QHS [facility] Last Admin: 09/04/20 21:55 Dose: 5 mg Documented by: STROKE Vital Signs/Narrative: Vital Signs Temp Pulse Resp BP Pulse Ox 09/05/20 09:16 84 09/05/20 09:06 36.7 C 84 18 189/82 H 97 Medical Necessity - Tobacco Use Smoking Status: Never smoker Tobacco Use: Non-smoker Assessment/Plan All Active Problems (This Medical Record has been edited. Action required.) Diabetic infection of left foot (Acute) Chest pain (Acute) NSTEMI (non-ST elevated myocardial infarction) (Resolved 09/20/18) History of coronary artery stent placement (Resolved 09/21/18) Abscess of left foot (Resolved) Cellulitis of left foot (Resolved) Chest pain (Resolved) Diabetic foot infection (Resolved) Diarrhea (Resolved) Enteritis, Yersinia enterocolitica (Resolved) Hyperglycemia (Resolved) Intractable nausea and vomiting (Resolved) Malnutrition (Resolved) Necrotizing soft tissue infection (Resolved) Severe sepsis (Resolved) 1. chest pain: stress negative. suspect costochondritis v reflux. Reviewed CTA and stress with patient. Started PPI. may need GI follow up. 2. Left foot diabetic infected ulcer: s/p debridement. MRI did not show osteomyelitis. follow up cultures, thus far growing out Enterobacter, S. aureas and S. haemolyticus. change abx to bactrim. As it is non-emergent, hold clopidogrel until surgery. DW Dr. Guadarrama, plan for further debridement on 09/08 3. ABLA: stable s/p 2 units PRBCs 4. LLE edema: improved per patient. Duplex negative. 5. DM2, uncontrolled. A1c 9.8. On glargine and SSI log with meals. Increase glargine to 35 BID 6. VTE prophylaxis: SCDs. hold enoxaparin given anemia. Discussed with Dr. Marques as well as case management, patient will need wound care need to be done daily. Patient unable to get wound care until the started next week. Patient may not be able to reliably administer proper wound care or may be reluctant to learn. Therefore, patient will remain in the hospital until the 30 for her debridement. Greater than 25 minutes of which greater than 50% of the time was coordinating the patient's care in regards to addressing antibiotics, following up cultures but also discussing with podiatry as well as case management. Inpatient E&M: 26165 Subs Hosp L2
[2020-09-05] MEDS: oxyCODONE 5 MG Tablet PO (14:40)
[2020-09-05 16:31] LABS: Bedside Glucose 225 mg/dL (70-110)
[2020-09-05] MEDS: Paroxetine 20 MG Tablet PO (21:30)
[2020-09-05] MEDS: Atorvastatin Calcium 80 MG Tablet PO (21:30)
[2020-09-05] MEDS: Zolpidem Tartrate 5 MG Tablet PO (21:30)
[2020-09-05] MEDS: Pramipexole Di-HCl 1 MG Tablet 3 MG PO (21:30)
[2020-09-05] MEDS: oxyCODONE 5 MG Tablet 10 MG PO (21:39)
[2020-09-05 21:45] LABS: Bedside Glucose 220 mg/dL (70-110)
[2020-09-06] VITALS (7 sets, daily range): BP systolic 133–168; BP diastolic 63–81; PULSE 72–87; RESP 15–17; TEMP 36.5–36.8; O2SAT 97–100
[2020-09-06] MEDS: 0.9% Saline Lock 10 ML Syringe IV (02:16)
[2020-09-06 07:12] LABS: Anion Gap 5 (5-15); BUN 24 mg/dL (7-18); BUN/Creat Ratio 24.8 RATIO (10-20); Calcium,Total 8.5 mg/dL (8.5-10.1); Chloride 113 mmol/L (98-107); Creatinine, Serum 0.97 mg/dL (0.55-1.02); EST Glomerular Filtration Rate 64 mL/min (>60); Est Glom Filt Rate - Afr Amer 77 mL/min (>60); Estimated Creatinine Clearance 61.35 ml/min; Glucose 157 mg/dL (74-106); Potassium 4.1 mmol/L (3.5-5.1); Sodium Level 137 mmol/L (136-145)
[2020-09-06] MEDS: Insulin Lispro 100 UNIT/ML INSULN.PEN SC ×4 (08:12→21:47)
[2020-09-06] MEDS: Insulin Lispro 100 UNIT/ML INSULN.PEN 20 UNIT SC ×3 (08:13→16:17)
[2020-09-06] MEDS: Gabapentin 300 MG Capsule 900 MG PO ×3 (08:14→16:16)
[2020-09-06] MEDS: Iron Polysaccharide Complex 150 MG CAPSULE PO (08:14)
[2020-09-06] MEDS: Aspirin E.C. 81 MG Tablet PO (08:14)
[2020-09-06] MEDS: Smz/Tmp Ds Tablet 1 TABLET PO ×2 (08:14→16:16)
[2020-09-06] MEDS: Isosorbide Mononitrate 30 MG Tablet PO (08:15)
[2020-09-06] MEDS: Pantoprazole Sodium 40 MG Tablet PO (08:16)
[2020-09-06] MEDS: Enoxaparin 40 MG/0.4 ML Syringe SC (08:16)
[2020-09-06] MEDS: Glucerna Shake 120 ML LIQUID PO ×4 (08:18→21:56)
--- NOTE | 2020-09-06 08:23 | PCM.PROGNOTE ---
Patient Problems: Active and Suspected Problems (This Medical Record has been edited. Action required.) Diabetic infection of left foot (Acute) Chest pain (Acute) Subjective: Patient was seen this morning for follow up on left foot. She is resting in bed, eating breakfast, no complaints at this time. No complaints of fever, chills, nausea or vomiting. - Physical Exam Vitals/I&O's: Vital Signs Temp Pulse Resp BP Pulse Ox 97.7 F L 84 15 168/79 H 100 09/06/20 07:58 09/06/20 07:58 09/06/20 07:58 09/06/20 07:58 09/06/20 07:58 Oxygen Flow Rate (L/min) 2 Oxygen Delivery Method Room Air Weight: 88.4 kg Body Mass Index (BMI) 31.6 Finger Stick Blood Glucose 91 Intake and Output for Last 24 Hours 09/04/20 09/05/20 09/06/20 23:59 23:59 23:59 Intake Total 2290 / 2290 2523.75 / 2523.75 83.58 / 83.58 Output Total 1350 / 1350 2475 / 2475 850 / 850 Balance 940 / 940 48.75 / 48.75 -766.42 / -766.42 General: Alert, Oriented x3, Cooperative, No apparent distress Extremities: Capillary Refill Less than 3 Seconds, No Calf Tenderness, - - Left foot: Stable wound to the plantar lateral midfoot down to fascia lower - no active bleeding, there is nonviable tissue to the base, but otherwise margins viable, no evidence of ischemia, no cellulitis, no streaking, no maloder, no visible abscess, no crepitus. Right ankle ulcers healed. Musculoskeletal: No Tenderness to Palpation of Joints or Extremities - to the foot or ankle bilateral. 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 Culture - Final Enterobacter cloacae complex Staphylococcus aureus Staphylococcus haemolyticus Laboratory Results 09/05/20 11:47: POC Glucose 336 H 09/05/20 16:11: POC Glucose 225 H 09/05/20 21:24: POC Glucose 220 H 09/06/20 05:32: WBC Pending, RBC Pending, Hgb Pending, Hct Pending, MCV Pending, MCH Pending, MCHC Pending, RDW Std Deviation Pending, RDW Coeff of Fior Pending, Plt Count Pending, Neut % (Auto) Pending, Absolute Neuts (auto) Pending 09/06/20 05:32: Sodium 137, Potassium 4.1, Chloride 113 H, Carbon Dioxide 19.0 L, Anion Gap 5, BUN 24 H, Creatinine 0.97, Estim Creat Clear Calc 61.35, Est GFR (MDRD) Af Amer 77, Est GFR (MDRD) Non-Af 64, BUN/Creatinine Ratio 24.8 H, Glucose 157 H, Calcium 8.5 Current Medications Acetaminophen (Acetaminophen 325 Mg Tablet) 650 mg PO Q6H PRN PRN PRN Reason: Pain Score 1-10/Temp > 100.7 F Al Hydroxide/Mg Hydroxide (Mag Hydrox/Al Hydrox/Simeth 30 Ml Udc) 30 ml PO Q6H PRN PRN PRN Reason: Gastric Burning Albuterol Sulfate (Albuterol 2.5 Mg/3 Ml Vial.Neb.) 2.5 mg INHALATION Q2H PRN PRN PRN Reason: Dyspnea, wheezing Aspirin (Aspirin E.C. 81 Mg Tablet) 81 mg PO DAILY@0800 [facility] Last Admin: 09/06/20 08:14 Dose: 81 mg Documented by: Atorvastatin Calcium (Atorvastatin Calcium 80 Mg Tablet) 80 mg PO QHS [facility] Last Admin: 09/05/20 21:30 Dose: 80 mg Documented by: Diphenhydramine HCl (Diphenhydramine 50 Mg/Ml Syringe) 25 mg IV Q6H PRN PRN PRN Reason: ITCHING Enoxaparin Sodium (Enoxaparin 40 Mg/0.4 Ml Syringe) 40 mg SC DAILY [facility] Last Admin: 09/06/20 08:16 Dose: 40 mg Documented by: Gabapentin (Gabapentin 300 Mg Capsule) 900 mg PO TIDCM [facility] Last Admin: 09/06/20 08:14 Dose: 900 mg Documented by: Guaifenesin (Guaifenesin 10 Ml Udc (200mg/10ml)) 20 ml PO Q4H PRN PRN PRN Reason: COUGH Hydralazine HCl (Hydralazine 20 Mg/Ml Vial) 10 mg IV Q4H PRN PRN PRN Reason: SBP > 160 Last Admin: 09/05/20 09:16 Dose: 10 mg Documented by: Sodium Chloride () 250 mls @ 15 mls/hr IV .[id number] PRN PRN Reason: Saline Flush Last Infusion: 09/06/20 02:42 Dose: 0 mls/hr Documented by: Sodium Chloride () 250 mls @ 15 mls/hr IV .[id number] PRN PRN Reason: Additional IVPB Infusion Sodium Chloride () 250 mls @ 15 mls/hr IV .[id number] PRN PRN Reason: Saline Flush Sodium Chloride () 250 mls @ 15 mls/hr IV .[id number] PRN PRN Reason: Additional IVPB Infusion Insulin Glargine (Insulin Glargine 100 Units/Ml Pen) 35 units SC BID [facility] Last Admin: 09/05/20 21:31 Dose: 35 u Documented by: Insulin Human Lispro (Insulin Lispro 100 Unit/Ml Insuln.Pen) 20 unit SC TIDCM [facility] Last Admin: 09/06/20 08:13 Dose: 20 units Documented by: Insulin Human Lispro (Insulin Lispro 100 Unit/Ml Insuln.Pen) 0 unit SC ACHS [facility]; Protocol Last Admin: 09/06/20 08:12 Dose: 6 units Documented by: Isosorbide Mononitrate (Isosorbide Mononitrate 30 Mg Tablet) 30 mg PO DAILY [facility] Last Admin: 09/06/20 08:15 Dose: 30 mg Documented by: Magnesium Hydroxide (Magnesium Hydroxide 30 Ml Udc) 30 ml PO DAILY PRN PRN PRN Reason: Constipation Melatonin (Melatonin 3 Mg Tablet) 3 mg PO QHS PRN PRN PRN Reason: INSOMNIA Nitroglycerin (Nitroglycerin (Inpatient Use) 0.4 Mg Tab.Subl) 0.4 mg SUBLINGUAL Q5M PRN PRN Reason: CARDIAC/CHEST PAIN Nutritional Formula (Nutritional Supplement (Ted) Packet) 1 packet PO BIDCM [facility] Last Admin: 09/06/20 08:14 Dose: Not Given Documented by: Nutritional Formula (Lactose Free) (Glucerna Shake 120 Ml Liquid) 120 ml PO 4X/DAY [facility] Last Admin: 09/06/20 08:18 Dose: 120 ml Documented by: Ondansetron HCl (Ondansetron 4 Mg/2 Ml Vial) 4 mg IV Q8H PRN PRN PRN Reason: NAUSEA/VOMITING Last Admin: 09/04/20 23:40 Dose: 4 mg Documented by: Oxycodone HCl (Oxycodone 5 Mg Tablet) 5 mg PO Q4H PRN PRN PRN Reason: Pain Score 4-5 Last Admin: 09/05/20 14:40 Dose: 5 mg Documented by: Oxycodone HCl (Oxycodone 5 Mg Tablet) 10 mg PO Q4H PRN PRN PRN Reason: Pain Score 6-10 Last Admin: 09/05/20 21:39 Dose: 5 mg Documented by: Pantoprazole Sodium (Pantoprazole Sodium 40 Mg Tablet) 40 mg PO DAILY [facility] Last Admin: 09/06/20 08:16 Dose: 40 mg Documented by: Paroxetine HCl (Paroxetine 20 Mg Tablet) 20 mg PO QHS [facility] Last Admin: 09/05/20 21:30 Dose: 20 mg Documented by: Polysaccharide Iron Complex ([facility] Polysaccharide [facility] Admin: 09/06/20 08:14 Dose: 150 mg Documented by: Pramipexole Dihydrochloride (Pramipexole Di-Hcl 1 Mg Tablet) 3 mg PO QHS [facility] Last Admin: 09/05/20 21:30 Dose: 3 mg Documented by: Prochlorperazine Edisylate (Prochlorperazine 10 Mg/2 Ml Vial) 5 mg IV Q4H PRN PRN PRN Reason: Breakthrough Nausea/Vomiting Psyllium Hydrophilic Mucilloid (Psyllium 1 Packet) 1 packet PO DAILY PRN PRN PRN Reason: Constipation Senna/Docusate Sodium (Senna/Docusate Sodium 1 Tablet) 2 tablet PO BID PRN PRN PRN Reason: Constipation Last Admin: 09/04/20 23:40 Dose: 2 tablet Documented by: Sodium Chloride (0.9% Saline Lock 10 Ml Syringe) 10 - 40 ml IV UD PRN PRN Reason: SALINE FLUSH Last Admin: 09/06/20 02:16 Dose: 10 ml Documented by: Sodium Chloride (0.9% Saline Lock 10 Ml Syringe) 10 - 40 ml IV UD PRN PRN Reason: SALINE FLUSH Throat Lozenges (Benzocaine/Menthol 1 Lozenge) 1 lozenge MUCOUS MEM Q2H PRN PRN PRN Reason: SORE THROAT Trimethoprim/Sulfamethoxazole (Smz/Tmp Ds Tablet) 1 tablet PO BIDCM [facility] Last Admin: 09/06/20 08:14 Dose: 1 tablet Documented by: Zolpidem Tartrate (Zolpidem Tartrate 5 Mg Tablet) 5 mg PO QHS [facility] Last Admin: 09/05/20 21:30 Dose: 5 mg Documented by: Medical Necessity - Tobacco Use Smoking Status: Never smoker Tobacco Use: Non-smoker Assessment/Plan All Active Problems (This Medical Record has been edited. Action required.) Diabetic infection of left foot (Acute) Chest pain (Acute) NSTEMI (non-ST elevated myocardial infarction) (Resolved 09/20/18) History of coronary artery stent placement (Resolved 09/21/18) Abscess of left foot (Resolved) Cellulitis of left foot (Resolved) Chest pain (Resolved) Diabetic foot infection (Resolved) Diarrhea (Resolved) Enteritis, Yersinia enterocolitica (Resolved) Hyperglycemia (Resolved) Intractable nausea and vomiting (Resolved) Malnutrition (Resolved) Necrotizing soft tissue infection (Resolved) Severe sepsis (Resolved) Left plantar foot ulceration down to fascia layer 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 Left foot xrays reviewed, no gas, osteomyelitis unable to be ruled out. MRI was ordered for further evaluation - no noted osteomyelitis, however significant fluid collection noted at site. There was bleeding from bedside debridement, hgb dropped to 6.7; discussed with Dr. Prado, patient received 2 PRBC, hgb now up. Due to anemia plan to hold plavix, address hgb, then plan to proceed with OR debridement on Tuesday. Discussed with Dr. Marques as well as case management, patient will need wound care need to be done daily. Patient unable to get wound care until the started next week. Patient may not be able to reliably administer proper wound care or may be reluctant to learn. Therefore, patient will remain in the hospital until the for her debridement. Changed dressing today, no active bleeding, cleansed with normal saline soln, applied saline gauze wet to dry - keep clean, dry and intact. Culture reviewed: multiple organisms noted, staph aureus, enterbacter, and staph hemolyticus - antibiotic switched to oral Bactrim. Reviewed noninvasive lower extremity arterial studies: good arterial flow to foot. No strict weightbearing left foot. Keep foot elevated. Wound care right lateral ankle: small superficial ulcerations: healed at this time. Discharge planning: patient will need to be strict nonweightbearing left foot - per PT patient did well with nonweightbearing, also will need close wound care to foot by nursing. We discussed possible d/c home, however patient will need home nursing daily dressing changes or wound vac which have not been able to be approved by insurance so patient is staying until Tuesday for debridement. I have discussed with case management and Dr. Prado. Podiatry will continue to follow closely.
[2020-09-06 08:30] LABS: Bedside Glucose 236 mg/dL (70-110)
[2020-09-06 10:18] LABS: Absolute Lymphocyte Count 1.45 X10^3/uL (0.83-4.51); Absolute Neutrophil Count 8.5 X10^3/uL (2.0-7.7); Basophil# 0.05 X10^3/uL; Basophil% 0.5 % (0-1); Eosinophil# 0.26 X10^3/uL; Eosinophils% 2.4 % (0-5); Hematocrit 29.4 % (37-47); Hemoglobin 9.5 g/dL (12.0-15.0); Lymphocyte # 1.45 X10^3/ul (4.0); Lymphocyte % 13.5 % (19-41); Mean Corp Hgb Conc 32.3 g/dL (32-36); Mean Corpuscular Hgb 28.8 pg (27.0-32.0); Mean Corpuscular Volume 89.1 fL (81-99); Mean Platelet Vol. 10.4 fl (6.2-12.0); Monocyte# 0.48 X10^3/uL; Monocyte% 4.5 % (0-10); NRBC Flagged by Analyzer 0 % (0-5); Neutrophil # 8.48 X10^3/uL (2.7-7.7); Neutrophil % 78.7 % (47-70); Platelet Count 347 K/mm3 (150-450); RBC Distribution Width CV 13.3 % (11.6-14.6); RBC Distribution Width SD 43.5 fl (35.1-43.9); White Blood Count 10.8 K/mm3 (4.4-11.0)
--- NOTE | 2020-09-06 11:56 | PN_ITS ---
Patient Problems: Active and Suspected Problems (This Medical Record has been edited. Action required.) Diabetic infection of left foot (Acute) Chest pain (Acute) Reason for Visit: diabetic foot infection Subjective: Pain in foot in controlled. Wants to get up into chair. Vitals/I&O's: Vital Signs Temp Pulse Resp BP Pulse Ox 36.5 C L 87 15 168/79 H 100 09/06/20 07:58 09/06/20 10:32 09/06/20 07:58 09/06/20 07:58 09/06/20 07:58 Oxygen Flow Rate (L/min) 2 Oxygen Delivery Method Room Air Weight: 88.4 kg Body Mass Index (BMI) 31.6 Finger Stick Blood Glucose 91 Intake and Output for Last 24 Hours 09/04/20 09/05/20 09/06/20 23:59 23:59 23:59 Intake Total 2290 / 2290 2523.75 / 2523.75 563.58 / 563.58 Output Total 1350 / 1350 2475 / 2475 850 / 850 Balance 940 / 940 48.75 / 48.75 -286.42 / -286.42 General: Alert, No apparent distress HEENT: Atraumatic, Normocephalic Extremities: - - left foot wrapped--did not remove. 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 Culture - Final Enterobacter cloacae complex Staphylococcus aureus Staphylococcus haemolyticus Laboratory Results 09/05/20 11:47: POC Glucose 336 H 09/05/20 16:11: POC Glucose 225 H 09/05/20 21:24: POC Glucose 220 H 09/06/20 05:32: WBC 10.8, RBC 3.30 L, Hgb 9.5 L, Hct 29.4 L, MCV 89.1, MCH 28.8, MCHC 32.3, RDW Std Deviation 43.5, RDW Coeff of Fior 13.3, Plt Count 347, MPV 10.4, Immature Gran % (Auto) 0.400, Neut % (Auto) 78.7 H, Lymph % (Auto) 13.5 L, [place] % (Auto) 4.5, Eos % (Auto) 2.4, Baso % (Auto) 0.5, Absolute Neuts (auto) 8.5 H, Absolute Lymphs (auto) 1.45, Nucleated RBC % 0 09/06/20 05:32: Sodium 137, Potassium 4.1, Chloride 113 H, Carbon Dioxide 19.0 L , Anion Gap 5, BUN 24 H, Creatinine 0.97, Estim Creat Clear Calc 61.35, Est GFR (MDRD) Af Amer 77, Est GFR (MDRD) Non-Af 64, BUN/Creatinine Ratio 24.8 H, Glucose 157 H, Calcium 8.5 09/06/20 07:58: POC Glucose 236 H Current Medications Acetaminophen (Acetaminophen 325 Mg Tablet) 650 mg PO Q6H PRN PRN PRN Reason: Pain Score 1-10/Temp > 100.7 F Al Hydroxide/Mg Hydroxide (Mag Hydrox/Al Hydrox/Simeth 30 Ml Udc) 30 ml PO Q6H PRN PRN PRN Reason: Gastric Burning Albuterol Sulfate (Albuterol 2.5 Mg/3 Ml Vial.Neb.) 2.5 mg INHALATION Q2H PRN PRN PRN Reason: Dyspnea, wheezing Aspirin (Aspirin E.C. 81 Mg Tablet) 81 mg PO DAILY@0800 [facility] Last Admin: 09/06/20 08:14 Dose: 81 mg Documented by: Atorvastatin Calcium (Atorvastatin Calcium 80 Mg Tablet) 80 mg PO QHS [facility] Last Admin: 09/05/20 21:30 Dose: 80 mg Documented by: Diphenhydramine HCl (Diphenhydramine 50 Mg/Ml Syringe) 25 mg IV Q6H PRN PRN PRN Reason: ITCHING Enoxaparin Sodium (Enoxaparin 40 Mg/0.4 Ml Syringe) 40 mg SC DAILY [facility] Last Admin: 09/06/20 08:16 Dose: 40 mg Documented by: Gabapentin (Gabapentin 300 Mg Capsule) 900 mg PO TIDCM [facility] Last Admin: 09/06/20 11:38 Dose: 900 mg Documented by: Guaifenesin (Guaifenesin 10 Ml Udc (200mg/10ml)) 20 ml PO Q4H PRN PRN PRN Reason: COUGH Hydralazine HCl (Hydralazine 20 Mg/Ml Vial) 10 mg IV Q4H PRN PRN PRN Reason: SBP > 160 Last Admin: 09/05/20 09:16 Dose: 10 mg Documented by: Sodium Chloride () 250 mls @ 15 mls/hr IV .[id number] PRN PRN Reason: Saline Flush Last Infusion: 09/06/20 02:42 Dose: 0 mls/hr Documented by: Sodium Chloride () 250 mls @ 15 mls/hr IV .[id number] PRN PRN Reason: Additional IVPB Infusion Sodium Chloride () 250 mls @ 15 mls/hr IV .[id number] PRN PRN Reason: Saline Flush Sodium Chloride () 250 mls @ 15 mls/hr IV .[id number] PRN PRN Reason: Additional IVPB Infusion Insulin Glargine (Insulin Glargine 100 Units/Ml Pen) 35 units SC BID [facility] Last Admin: 09/06/20 11:36 Dose: 35 u Documented by: Insulin Human Lispro (Insulin Lispro 100 Unit/Ml Insuln.Pen) 20 unit SC TIDCM [facility] Last Admin: 09/06/20 11:37 Dose: 20 units Documented by: Insulin Human Lispro (Insulin Lispro 100 Unit/Ml Insuln.Pen) 0 unit SC ACHS [facility]; Protocol Last Admin: 09/06/20 11:36 Dose: 6 units Documented by: Isosorbide Mononitrate (Isosorbide Mononitrate 30 Mg Tablet) 30 mg PO DAILY [facility] Last Admin: 09/06/20 08:15 Dose: 30 mg Documented by: Magnesium Hydroxide (Magnesium Hydroxide 30 Ml Udc) 30 ml PO DAILY PRN PRN PRN Reason: Constipation Melatonin (Melatonin 3 Mg Tablet) 3 mg PO QHS PRN PRN PRN Reason: INSOMNIA Nitroglycerin (Nitroglycerin (Inpatient Use) 0.4 Mg Tab.Subl) 0.4 mg SUBLINGUAL Q5M PRN PRN Reason: CARDIAC/CHEST PAIN Nutritional Formula (Nutritional Supplement (Ted) Packet) 1 packet PO BIDCM [facility] Last Admin: 09/06/20 08:14 Dose: Not Given Documented by: Nutritional Formula (Lactose Free) (Glucerna Shake 120 Ml Liquid) 120 ml PO 4X/DAY [facility] Last Admin: 09/06/20 08:18 Dose: 120 ml Documented by: Ondansetron HCl (Ondansetron 4 Mg/2 Ml Vial) 4 mg IV Q8H PRN PRN PRN Reason: NAUSEA/VOMITING Last Admin: 09/04/20 23:40 Dose: 4 mg Documented by: Oxycodone HCl (Oxycodone 5 Mg Tablet) 5 mg PO Q4H PRN PRN PRN Reason: Pain Score 4-5 Last Admin: 09/05/20 14:40 Dose: 5 mg Documented by: Oxycodone HCl (Oxycodone 5 Mg Tablet) 10 mg PO Q4H PRN PRN PRN Reason: Pain Score 6-10 Last Admin: 09/05/20 21:39 Dose: 5 mg Documented by: Pantoprazole Sodium (Pantoprazole Sodium 40 Mg Tablet) 40 mg PO DAILY [facility] Last Admin: 09/06/20 08:16 Dose: 40 mg Documented by: Paroxetine HCl (Parox[facility] 20 Mg Tablet) [facility] Last Admin: 09/05/20 21:30 Dose: 20 mg Documented by: Polysaccharide Iron Complex ([facility] Pol[facility]accharide [facility] 150 [facility]) [facility] Admin: 09/06/20 08:14 Dose: 150 mg Documented by: Pramipexole Dihydrochloride (Pramipexole Di-Hcl 1 Mg Tablet) 3 mg PO QHS [facility] Last Admin: 09/05/20 21:30 Dose: 3 mg Documented by: Prochlorperazine Edisylate (Prochlorperazine 10 Mg/2 Ml Vial) 5 mg IV Q4H PRN PRN PRN Reason: Breakthrough Nausea/Vomiting Psyllium Hydrophilic Mucilloid (Psyllium 1 Packet) 1 packet PO DAILY PRN PRN PRN Reason: Constipation Senna/Docusate Sodium (Senna/Docusate Sodium 1 Tablet) 2 tablet PO BID PRN PRN PRN Reason: Constipation Last Admin: 09/04/20 23:40 Dose: 2 tablet Documented by: Sodium Chloride (0.9% Saline Lock 10 Ml Syringe) 10 - 40 ml IV UD PRN PRN Reason: SALINE FLUSH Last Admin: 09/06/20 02:16 Dose: 10 ml Documented by: Sodium Chloride (0.9% Saline Lock 10 Ml Syringe) 10 - 40 ml IV UD PRN PRN Reason: SALINE FLUSH Throat Lozenges (Benzocaine/Menthol 1 Lozenge) 1 lozenge MUCOUS MEM Q2H PRN PRN PRN Reason: SORE THROAT Trimethoprim/Sulfamethoxazole (Smz/Tmp Ds Tablet) 1 tablet PO BIDCM [facility] Last Admin: 09/06/20 08:14 Dose: 1 tablet Documented by: Zolpidem Tartrate (Zolpidem Tartrate 5 Mg Tablet) 5 mg PO QHS [facility] Last Admin: 09/05/20 21:30 Dose: 5 mg Documented by: STROKE Vital Signs/Narrative: Vital Signs Temp Pulse Resp BP Pulse Ox 09/06/20 10:32 87 09/06/20 07:58 36.5 C L 84 15 168/79 H 100 Medical Necessity - Tobacco Use Smoking Status: Never smoker Tobacco Use: Non-smoker Assessment/Plan All Active Problems (This Medical Record has been edited. Action required.) Diabetic infection of left foot (Acute) Chest pain (Acute) NSTEMI (non-ST elevated myocardial infarction) (Resolved 09/20/18) History of coronary artery stent placement (Resolved 09/21/18) Abscess of left foot (Resolved) Cellulitis of left foot (Resolved) Chest pain (Resolved) Diabetic foot infection (Resolved) Diarrhea (Resolved) Enteritis, Yersinia enterocolitica (Resolved) Hyperglycemia (Resolved) Intractable nausea and vomiting (Resolved) Malnutrition (Resolved) Necrotizing soft tissue infection (Resolved) Severe sepsis (Resolved) 1. chest pain: * resolved * stress negative. * suspect costochondritis v reflux. * CTA negative for PNA and PE. * Started PPI. may need GI follow up. 2. Left foot diabetic infected ulcer: * s/p debridement 09/02. Complicated by bleeding * MRI did not show osteomyelitis. * Cultures growing out Enterobacter, S. aureas and S. haemolyticus. Started trimethoprim/sulfamethoxazole 09/05. * further debridement on 09/08 * May need wound vac 3. ABLA: * stable s/p 2 units PRBCs * 2/2 debridement 4. LLE edema: * improved per patient. Duplex negative. Concern for DVT as pt recently came back from [place]. 5. DM2, uncontrolled. * A1c 9.8. On glargine and SSI log with meals. Increase glargine to 35 BID 6. VTE prophylaxis: SCDs. hold enoxaparin given anemia. 7. Disposition: patient to remain in hopsital until 09/08. Discussed with Dr. Marques as well as case management, patient will need wound care need to be done daily. Patient unable to get wound care until the started next week. Patient may not be able to reliably administer proper wound care (or may be reluctant to learn or perform). Therefore, patient will remain in the hospital until the for her debridement. Inpatient E&M: [id number] [facility] L[facility]
[2020-09-06 12:05] LABS: Bedside Glucose 254 mg/dL (70-110)
[2020-09-06] MEDS: oxyCODONE 5 MG Tablet PO (16:22)
[2020-09-06 16:40] LABS: Bedside Glucose 152 mg/dL (70-110)
[2020-09-06] MEDS: Pramipexole Di-HCl 1 MG Tablet 3 MG PO (21:52)
[2020-09-06] MEDS: Atorvastatin Calcium 80 MG Tablet PO (21:52)
[2020-09-06] MEDS: Paroxetine 20 MG Tablet PO (21:52)
[2020-09-06] MEDS: Zolpidem Tartrate 5 MG Tablet PO (21:56)
[2020-09-06 22:06] LABS: Bedside Glucose 181 mg/dL (70-110)
[2020-09-07 00:37] VITALS: BP 144/68; PULSE 72; RESP 15; TEMP 36.9; O2SAT 98
[2020-09-07 06:00] VITALS: BP 155/79; PULSE 85; RESP 15; TEMP 37.2; O2SAT 98
[2020-09-07 07:26] LABS: Bedside Glucose 191 mg/dL (70-110)
[2020-09-07 08:01] VITALS: BP 158/78; PULSE 81; RESP 16; TEMP 37.1; O2SAT 99
[2020-09-07] MEDS: Insulin Lispro 100 UNIT/ML INSULN.PEN SC ×3 (08:15→17:29)
[2020-09-07] MEDS: Insulin Lispro 100 UNIT/ML INSULN.PEN 20 UNIT SC ×3 (08:16→17:27)
[2020-09-07] MEDS: Smz/Tmp Ds Tablet 1 TABLET PO ×2 (08:16→17:27)
[2020-09-07] MEDS: Iron Polysaccharide Complex 150 MG CAPSULE PO (08:17)
[2020-09-07] MEDS: Aspirin E.C. 81 MG Tablet PO (08:17)
[2020-09-07] MEDS: Gabapentin 300 MG Capsule 900 MG PO ×3 (08:17→17:26)
[2020-09-07] MEDS: Isosorbide Mononitrate 30 MG Tablet PO (08:18)
[2020-09-07] MEDS: Enoxaparin 40 MG/0.4 ML Syringe SC (08:19)
[2020-09-07] MEDS: Pantoprazole Sodium 40 MG Tablet PO (08:20)
--- NOTE | 2020-09-07 11:09 | PCM.PN.HOSP ---
Patient Problems: Active and Suspected Problems (This Medical Record has been edited. Action required.) Diabetic infection of left foot (Acute) Chest pain (Acute) Reason for Visit: diabetic foot infection Subjective: no new complaints Vitals/I&O's: Vital Signs Temp Pulse Resp BP Pulse Ox 37.1 C 81 16 158/78 H 99 09/07/20 08:01 09/07/20 08:01 09/07/20 08:01 09/07/20 08:01 09/07/20 08:01 Oxygen Flow Rate (L/min) 2 Oxygen Delivery Method Room Air Weight: 90.3 kg Body Mass Index (BMI) 31.6 Finger Stick Blood Glucose 91 Intake and Output for Last 24 Hours 09/05/20 09/06/20 09/07/20 23:59 23:59 23:59 Intake Total 2523.75 / 2523.75 1043.58 / 1143.58 300 / 300 Output Total 2475 / 2475 850 / 850 200 / 200 Balance 48.75 / 48.75 193.58 / 293.58 100 / 100 General: Alert, No apparent distress HEENT: Atraumatic, Normocephalic Extremities: - - left foot wrapped--did not remove. Psych/Mental Status: Appropriate, Flat Affect 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 Culture - Final Enterobacter cloacae complex Staphylococcus aureus Staphylococcus haemolyticus Laboratory Results 09/06/20 11:34: POC Glucose 254 H 09/06/20 16:14: POC Glucose 152 H 09/06/20 21:42: POC Glucose 181 H 09/07/20 07:15: POC Glucose 191 H Current Medications Acetaminophen (Acetaminophen 325 Mg Tablet) 650 mg PO Q6H PRN PRN PRN Reason: Pain Score 1-10/Temp > 100.7 F Al Hydroxide/Mg Hydroxide (Mag Hydrox/Al Hydrox/Simeth 30 Ml Udc) 30 ml PO Q6H PRN PRN PRN Reason: Gastric Burning Albuterol Sulfate (Albuterol 2.5 Mg/3 Ml Vial.Neb.) 2.5 mg INHALATION Q2H PRN PRN PRN Reason: Dyspnea, wheezing Aspirin (Aspirin E.C. 81 Mg Tablet) 81 mg PO DAILY@0800 [facility] Last Admin: 09/07/20 08:17 Dose: 81 mg Documented by: Atorvastatin Calcium (Atorvastatin Calcium 80 Mg Tablet) 80 mg PO QHS [facility] Last Admin: 09/06/20 21:52 Dose: 80 mg Documented by: Diphenhydramine HCl (Diphenhydramine 50 Mg/Ml Syringe) 25 mg IV Q6H PRN PRN PRN Reason: ITCHING Enoxaparin Sodium (Enoxaparin 40 Mg/0.4 Ml Syringe) 40 mg SC DAILY [facility] Last Admin: 09/07/20 08:19 Dose: 40 mg Documented by: Gabapentin (Gabapentin 300 Mg Capsule) 900 mg PO TIDCM [facility] Last Admin: 09/07/20 08:17 Dose: 900 mg Documented by: Guaifenesin (Guaifenesin 10 Ml Udc (200mg/10ml)) 20 ml PO Q4H PRN PRN PRN Reason: COUGH Hydralazine HCl (Hydralazine 20 Mg/Ml Vial) 10 mg IV Q4H PRN PRN PRN Reason: SBP > 160 Last Admin: 09/05/20 09:16 Dose: 10 mg Documented by: Sodium Chloride () 250 mls @ 15 mls/hr IV .[id number] PRN PRN Reason: Saline Flush Last Infusion: 09/06/20 02:42 Dose: 0 mls/hr Documented by: Sodium Chloride () 250 mls @ 15 mls/hr IV .[id number] PRN PRN Reason: Additional IVPB Infusion Sodium Chloride () 250 mls @ 15 mls/hr IV .[id number] PRN PRN Reason: Saline Flush Sodium Chloride () 250 mls @ 15 mls/hr IV .[id number] PRN PRN Reason: Additional IVPB Infusion Insulin Glargine (Insulin Glargine 100 Units/Ml Pen) 35 units SC BID [facility] Last Admin: 09/07/20 08:18 Dose: 35 u Documented by: Insulin Human Lispro (Insulin Lispro 100 Unit/Ml Insuln.Pen) 20 unit SC TIDCM [facility] Last Admin: 09/07/20 08:16 Dose: 20 units Documented by: Insulin Human Lispro (Insulin Lispro 100 Unit/Ml Insuln.Pen) [facility] Protocol Last Admin: 11/29/20 08:15 Dose: 3 units Documented by: Isosorbide Mononitrate (Isosorbide Mononitrate 30 Mg Tablet) 30 mg PO DAILY [facility] Last Admin: 09/07/20 08:18 Dose: 30 mg Documented by: Magnesium Hydroxide (Magnesium Hydroxide 30 Ml Udc) 30 ml PO DAILY PRN PRN PRN Reason: Constipation Melatonin (Melatonin 3 Mg Tablet) 3 mg PO QHS PRN PRN PRN Reason: INSOMNIA Nitroglycerin (Nitroglycerin (Inpatient Use) 0.4 Mg Tab.Subl) 0.4 mg SUBLINGUAL Q5M PRN PRN Reason: CARDIAC/CHEST PAIN Nutritional Formula (Nutritional [facility] (Ted) Packet) [facility] Last Admin: 09/07/20 08:17 Dose: Not Given Documented by: Nutritional Formula (Lactose Free) (Glucerna Shake 120 Ml Liquid) 120 ml PO 4X/DAY [facility] Last Admin: 09/07/20 08:18 Dose: Not Given Documented by: Ondansetron HCl (Ondansetron 4 Mg/2 Ml Vial) 4 mg IV Q8H PRN PRN PRN Reason: NAUSEA/VOMITING Last Admin: 09/04/20 23:40 Dose: 4 mg Documented by: Oxycodone HCl (Oxycodone 5 Mg Tablet) 5 mg PO Q4H PRN PRN PRN Reason: Pain Score 4-5 Last Admin: 09/06/20 16:22 Dose: 5 mg Documented by: Oxycodone HCl (Oxycodone 5 Mg Tablet) 10 mg PO Q4H PRN PRN PRN Reason: Pain Score 6-10 Last Admin: 09/05/20 21:39 Dose: 5 mg Documented by: Pantoprazole Sodium (Pantoprazole Sodium 40 Mg Tablet) 40 mg PO DAILY [facility] Last Admin: 09/07/20 08:20 Dose: 40 mg Documented by: Paroxetine HCl (Paroxetine 20 Mg Tablet) 20 mg PO QHS [facility] Last Admin: 09/06/20 21:52 Dose: 20 mg Documented by: Polysaccharide Iron Complex (Iron Polysaccharide Complex 150 Mg Capsule) [facility] Last Admin: 09/07/20 08:17 Dose: 150 mg Documented by: Pramipexole Dihydrochloride (Pramipexole Di-Hcl 1 Mg Tablet) [facility] Last Admin: 09/06/20 21:52 Dose: 3 mg Documented by: Prochlorperazine Edisylate (Prochlorperazine 10 Mg/2 Ml Vial) 5 mg IV Q4H PRN PRN PRN Reason: Breakthrough Nausea/Vomiting Psyllium Hydrophilic Mucilloid (Psyllium 1 Packet) 1 packet PO DAILY PRN PRN PRN Reason: Constipation Senna/Docusate Sodium (Senna/Docusate Sodium 1 Tablet) 2 tablet PO BID PRN PRN PRN Reason: Constipation Last Admin: 09/04/20 23:40 Dose: 2 tablet Documented by: Sodium Chloride (0.9% Saline Lock 10 Ml Syringe) 10 - 40 ml IV UD PRN PRN Reason: SALINE FLUSH Last Admin: 09/06/20 02:16 Dose: 10 ml Documented by: Sodium Chloride (0.9% Saline Lock 10 Ml Syringe) 10 - 40 ml IV UD PRN PRN Reason: SALINE FLUSH Throat Lozenges (Benzocaine/Menthol 1 Lozenge) 1 lozenge MUCOUS MEM Q2H PRN PRN PRN Reason: SORE THROAT Trimethoprim/Sulfamethoxazole (Smz/Tmp Ds Tablet) 1 tablet PO BIDCM [facility] Last Admin: 09/07/20 08:16 Dose: 1 tablet Documented by: Zolpidem Tartrate (Zolpidem Tartrate 5 Mg Tablet) 5 mg PO QHS [facility] Last Admin: 09/06/20 21:56 Dose: 5 mg Documented by: STROKE Vital Signs/Narrative: Vital Signs Temp Pulse Resp BP Pulse Ox 09/07/20 08:01 37.1 C 81 16 158/78 H 99 Medical Necessity - Tobacco Use Smoking Status: Never smoker Tobacco Use: Non-smoker Assessment/Plan All Active Problems (This Medical Record has been edited. Action required.) Diabetic infection of left foot (Acute) Chest pain (Acute) NSTEMI (non-ST elevated myocardial infarction) (Resolved 09/20/18) History of coronary artery stent placement (Resolved 09/21/18) Abscess of left foot (Resolved) Cellulitis of left foot (Resolved) Chest pain (Resolved) Diabetic foot infection (Resolved) Diarrhea (Resolved) Enteritis, Yersinia enterocolitica (Resolved) Hyperglycemia (Resolved) Intractable nausea and vomiting (Resolved) Malnutrition (Resolved) Necrotizing soft tissue infection (Resolved) Severe sepsis (Resolved) 1. chest pain: resolved stress negative. suspect costochondritis v reflux. CTA negative for PNA and PE. Started PPI. may need GI follow up. 2. Left foot diabetic infected ulcer: s/p debridement 09/02. Complicated by bleeding MRI did not show osteomyelitis. Cultures growing out Enterobacter, S. aureas and S. haemolyticus. Started trimethoprim/sulfamethoxazole 09/05. further debridement on 09/08 May need wound vac 3. ABLA: stable s/p 2 units PRBCs / debridement 4. LLE edema: improved per patient. Duplex negative. Concern for DVT as pt recently came back from [place]. 5. DM2, uncontrolled. A1c 9.8. On glargine and SSI log with meals. Increase glargine to 35 BID 6. VTE prophylaxis: SCDs. hold enoxaparin given anemia. 7. Disposition: patient to remain in hopsital until 09/08. Discussed with Dr. Marques as well as case management, patient will need wound care need to be done daily. Patient unable to get wound care until the started next week. Patient may not be able to reliably administer proper wound care (or may be reluctant to learn or perform). Therefore, patient will remain in the hospital until the for her debridement. May need wound vac, but this will be determined by Dr. Guadarrama. CM to assist with arranging for home care. At this time, it is unlikely pt will be skillable for a SNF. Inpatient E&M: [id number] [facility] L[facility]
--- NOTE | 2020-09-07 11:26 | PN_ITS ---
Patient Problems: Active and Suspected Problems (This Medical Record has been edited. Action required.) Diabetic infection of left foot (Acute) Chest pain (Acute) Subjective: Patient was seen this morning for follow up on left foot. She has no new pedal complaints, no complaints of fever, chills, nausea or vomiting. Planning for left foot ulcer debridement tomorrow. - Physical Exam Vitals/I&O's: Vital Signs Temp Pulse Resp BP Pulse Ox 98.7 F 81 16 158/78 H 99 09/07/20 08:01 09/07/20 08:01 09/07/20 08:01 09/07/20 08:01 09/07/20 08:01 Oxygen Flow Rate (L/min) 2 Oxygen Delivery Method Room Air Weight: 90.3 kg Body Mass Index (BMI) 31.6 Finger Stick Blood Glucose 91 Intake and Output for Last 24 Hours 09/05/20 09/06/20 09/07/20 23:59 23:59 23:59 Intake Total 2523.75 / 2523.75 1043.58 / 1143.58 300 / 300 Output Total 2475 / 2475 850 / 850 200 / 200 Balance 48.75 / 48.75 193.58 / 293.58 100 / 100 General: Alert, Oriented x3, Cooperative, No apparent distress Extremities: Capillary Refill Less than 3 Seconds, No Calf Tenderness Skin: - - Left foot: Stable wound to the plantar lateral midfoot down to fascia lower - no active bleeding, there is nonviable tissue to the base, but otherwise margins viable, no evidence of ischemia, no cellulitis, no streaking, no maloder, no visible abscess, no crepitus. Right ankle ulcers healed. Psych/Mental Status: Normal Affect, Appropriate, Alert and oriented to time, place, person, mood and affect 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 Culture - Final Enterobacter cloacae complex Staphylococcus aureus Staphylococcus haemolyticus Laboratory Results 09/06/20 11:34: POC Glucose 254 H 09/06/20 16:14: POC Glucose 152 H 09/06/20 21:42: POC Glucose 181 H 09/07/20 07:15: POC Glucose 191 H Current Medications Acetaminophen (Acetaminophen 325 Mg Tablet) 650 mg PO Q6H PRN PRN PRN Reason: Pain Score 1-10/Temp > 100.7 F Al Hydroxide/Mg Hydroxide (Mag Hydrox/Al Hydrox/Simeth 30 Ml Udc) 30 ml PO Q6H PRN PRN PRN Reason: Gastric Burning Albuterol Sulfate (Albuterol 2.5 Mg/3 Ml Vial.Neb.) 2.5 mg INHALATION Q2H PRN PRN PRN Reason: Dyspnea, wheezing Aspirin (Aspirin E.C. 81 Mg Tablet) 81 mg PO DAILY@0800 ON LICENSE OF [facility] Last Admin: 09/07/20 08:17 Dose: 81 mg Documented by: Atorvastatin Calcium (Atorvastatin Calcium 80 Mg Tablet) 80 mg PO QHS ON LICENSE OF [facility] Last Admin: 09/06/20 21:52 Dose: 80 mg Documented by: Diphenhydramine HCl (Diphenhydramine 50 Mg/Ml Syringe) 25 mg IV Q6H PRN PRN PRN Reason: ITCHING Enoxaparin Sodium (Enoxaparin 40 Mg/0.4 Ml Syringe) 40 mg SC DAILY ON LICENSE OF [facility] Last Admin: 09/07/20 08:19 Dose: 40 mg Documented by: Gabapentin (Gabapentin 300 Mg Capsule) 900 mg PO TIDCM ON LICENSE OF [facility] Last Admin: 09/07/20 08:17 Dose: 900 mg Documented by: Guaifenesin (Guaifenesin 10 Ml Udc (200mg/10ml)) 20 ml PO Q4H PRN PRN PRN Reason: COUGH Hydralazine HCl (Hydralazine 20 Mg/Ml Vial) 10 mg IV Q4H PRN PRN PRN Reason: SBP > 160 Last Admin: 09/05/20 09:16 Dose: 10 mg Documented by: Sodium Chloride () 250 mls @ 15 mls/hr IV .[id number] PRN PRN Reason: Saline Flush Last Infusion: 09/06/20 02:42 Dose: 0 mls/hr Documented by: Sodium Chloride () 250 mls @ 15 mls/hr IV .[id number] PRN PRN Reason: Additional IVPB Infusion Sodium Chloride () 250 mls @ 15 mls/hr IV .[id number] PRN PRN Reason: Saline Flush Sodium Chloride () 250 mls @ 15 mls/hr IV .[id number] PRN PRN Reason: Additional IVPB Infusion Insulin Glargine (Insulin Glargine 100 Units/Ml Pen) 35 units SC BID ON LICENSE OF [facility] Last Admin: 09/07/20 08:18 Dose: 35 u Documented by: Insulin Human Lispro (Insulin Lispro 100 Unit/Ml Insuln.Pen) 20 unit SC TIDCM ON LICENSE OF [facility] Last Admin: 09/07/20 08:16 Dose: 20 units Documented by: Insulin Human Lispro (Insulin Lispro 100 Unit/Ml Insuln.Pen) 0 unit SC ACHS ON LICENSE OF [facility]; Protocol Last Admin: 09/07/20 08:15 Dose: 3 units Documented by: Isosorbide Mononitrate (Isosorbide Mononitrate 30 Mg Tablet) 30 mg PO DAILY ON LICENSE OF [facility] Last Admin: 09/07/20 08:18 Dose: 30 mg Documented by: Magnesium Hydroxide (Magnesium Hydroxide 30 Ml Udc) 30 ml PO DAILY PRN PRN PRN Reason: Constipation Melatonin (Melatonin 3 Mg Tablet) 3 mg PO QHS PRN PRN PRN Reason: INSOMNIA Nitroglycerin (Nitroglycerin (Inpatient Use) 0.4 Mg Tab.Subl) 0.4 mg SUBLINGUAL Q5M PRN PRN Reason: CARDIAC/CHEST PAIN Nutritional Formula (Nutritional Supplement (Ted) Packet) 1 packet PO BIDCM ON LICENSE OF [facility] Last Admin: 09/07/20 08:17 Dose: Not Given Documented by: Nutritional Formula (Lactose Free) (Glucerna Shake 120 Ml Liquid) 120 ml PO 4X/DAY ON LICENSE OF [facility] Last Admin: 09/07/20 08:18 Dose: Not Given Documented by: Ondansetron HCl (Ondansetron 4 Mg/2 Ml Vial) 4 mg IV Q8H PRN PRN PRN Reason: NAUSEA/VOMITING Last Admin: 09/04/20 23:40 Dose: 4 mg Documented by: Oxycodone HCl (Oxycodone 5 Mg Tablet) 5 mg PO Q4H PRN PRN PRN Reason: Pain Score 4-5 Last Admin: 09/06/20 16:22 Dose: 5 mg Documented by: Oxycodone HCl (Oxycodone 5 Mg Tablet) 10 mg PO Q4H PRN PRN PRN Reason: Pain Score 6-10 Last Admin: 09/05/20 21:39 Dose: 5 mg Documented by: Pantoprazole Sodium (Pantoprazole Sodium 40 Mg Tablet) 40 mg PO DAILY ON LICENSE OF [facility] Last Admin: 09/07/20 08:20 Dose: 40 mg Documented by: Paroxetine HCl (Paroxetine 20 Mg Tablet) 20 mg PO QHS ON LICENSE OF [facility] Last Admin: 09/06/20 21:52 Dose: 20 mg Documented by: Polysaccharide Iron Complex (Iron Polysaccharide Complex 150 Mg [facility]apsule) [facility] Last Admin: 09/07/20 08:17 Dose: 150 mg Documented by: Pramipexole Dihydrochloride (Pramipexole Di-Hcl 1 Mg Tablet) 3 mg PO QHS ON LICENSE OF [facility] Last Admin: 09/06/20 21:52 Dose: 3 mg Documented by: Prochlorperazine Edisylate (Prochlorperazine 10 Mg/2 Ml Vial) 5 mg IV Q4H PRN PRN PRN Reason: Breakthrough Nausea/Vomiting Psyllium Hydrophilic Mucilloid (Psyllium 1 Packet) 1 packet PO DAILY PRN PRN PRN Reason: Constipation Senna/Docusate Sodium (Senna/Docusate Sodium 1 Tablet) 2 tablet PO BID PRN PRN PRN Reason: Constipation Last Admin: 09/04/20 23:40 Dose: 2 tablet Documented by: Sodium Chloride (0.9% Saline Lock 10 Ml Syringe) 10 - 40 ml IV UD PRN PRN Reason: SALINE FLUSH Last Admin: 09/06/20 02:16 Dose: 10 ml Documented by: Sodium Chloride (0.9% Saline Lock 10 Ml Syringe) 10 - 40 ml IV UD PRN PRN Reason: SALINE FLUSH Throat Lozenges (Benzocaine/Menthol 1 Lozenge) 1 lozenge MUCOUS MEM Q2H PRN PRN PRN Reason: SORE THROAT Trimethoprim/Sulfamethoxazole (Smz/Tmp Ds Tablet) [facility] Last Admin: 09/07/20 08:16 Dose: 1 tablet Documented by: Zolpidem Tartrate (Zolpidem [facility]rate 5 Mg Tablet) [facility] Last Admin: 09/06/20 21:56 Dose: 5 mg Documented by: Medical Necessity - Tobacco Use Smoking Status: Never smoker Tobacco Use: Non-smoker Assessment/Plan All Active Problems (This Medical Record has been edited. Action required.) Diabetic infection of left foot (Acute) Chest pain (Acute) NSTEMI (non-ST elevated myocardial infarction) (Resolved 09/20/18) History of coronary artery stent placement (Resolved 09/21/18) Abscess of left foot (Resolved) Cellulitis of left foot (Resolved) Chest pain (Resolved) Diabetic foot infection (Resolved) Diarrhea (Resolved) Enteritis, Yersinia enterocolitica (Resolved) Hyperglycemia (Resolved) Intractable nausea and vomiting (Resolved) Malnutrition (Resolved) Necrotizing soft tissue infection (Resolved) Severe sepsis (Resolved) Left plantar foot ulceration down to fascia layer 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 Left foot xrays reviewed, no gas, osteomyelitis unable to be ruled out. MRI was ordered for further evaluation - no noted osteomyelitis, however significant fluid collection noted at site. There was bleeding from bedside debridement, hgb dropped to 6.7; discussed with Dr. Prado, patient received 2 PRBC, hgb now up. Due to anemia plan to hold plavix, address hgb, then plan to proceed with OR debridement on Tuesday. Changed dressing today, no active bleeding, cleansed with normal saline soln, applied saline gauze wet to dry - keep clean, dry and intact. Culture reviewed: multiple organisms noted, staph aureus, Enterobacter, and staph hemolyticus - pt on oral Bactrim. Reviewed noninvasive lower extremity arterial studies: good arterial flow to foot. No strict weightbearing left foot. Keep foot elevated. Wound care right lateral ankle: healed at this time. Discharge planning: patient will need to be strict nonweightbearing left foot - per PT patient did well with nonweightbearing, also will need close wound care to foot by nursing. We discussed possible d/c home, however patient will need home nursing daily dressing changes or wound vac which have not been able to be approved by insurance so patient is staying until Tuesday for debridement. Podiatry will continue to follow closely.
[2020-09-07] MEDS: Glucerna Shake 120 ML LIQUID PO ×2 (13:04→17:26)
[2020-09-07 13:11] LABS: Bedside Glucose 177 mg/dL (70-110)
[2020-09-07] MEDS: Senna/Docusate Sodium 1 Tablet 2 TABLET PO (13:34)
[2020-09-07 14:00] VITALS: BP 139/64; PULSE 86; RESP 16; TEMP 37.2; O2SAT 95
[2020-09-07] MEDS: Acetaminophen 325 MG Tablet 650 MG PO (17:34)
[2020-09-07 18:31] LABS: Bedside Glucose 156 mg/dL (70-110)
[2020-09-07 20:00] VITALS: BP 142/75; PULSE 80; RESP 15; TEMP 37.2; O2SAT 97
[2020-09-07] MEDS: oxyCODONE 5 MG Tablet 10 MG PO (20:13)
[2020-09-07 22:00] VITALS: PULSE 80
[2020-09-07] MEDS: Atorvastatin Calcium 80 MG Tablet PO (22:06)
[2020-09-07] MEDS: Pramipexole Di-HCl 1 MG Tablet 3 MG PO (22:06)
[2020-09-07] MEDS: Paroxetine 20 MG Tablet PO (22:06)
[2020-09-07 23:01] LABS: Bedside Glucose 113 mg/dL (70-110)
[2020-09-07] MEDS: Zolpidem Tartrate 5 MG Tablet PO (23:21)
[2020-09-08] VITALS (12 sets, daily range): BP systolic 100–147; BP diastolic 53–93; PULSE 70–93; RESP 15–20; TEMP 36.6–37.4; O2SAT 93–99; BMI 32.1
--- NOTE | 2020-09-08 | UL_PTH ---
PATIENT: DIONY ROCHA LOC: [facility] U#:[id number] AGE/SX: 55/F ROOM: [facility] RE09/01/[address]: Dr. Blas Vu MD : 1965 BED: 1 DIS: 09/12/2020 SPEC #: [id number] RECD: 09/08/20 15:13 STATUS: LON REQ #: [id number] ANEL: 09/08/20 00:[address]: Jefe Guadarrama DEPT: SURGICAL PATHOLOGY RECD BY: Ge Chairez ENTERED: 09/09/20 08:51 SP TYPE: ULCER OTHR DR: MD Dr. Lavern Sands, DPM MD Dr. Blas Sainz MD Tissues: ULCER Procedures: Special Stain Group I Surgery Specimen Level III AFB Stain (control) GMS Stain (control) Comments: @ Ordering doctor for SUIII edited from to @ by STEVEN at 09/09/20 1005 @ Submitting doctor edited from to @ by STEVEN at 09/09/20 1005 HEADER OPERATION: Debridement wound, foot PRE-OP DIAGNOSIS: Diabetic infection of left foot TISSUE SUBMITTED: Left foot ulcer for path MICROSCOPIC DIAGNOSIS Left foot ulcer: Fragments of dense fibroconnective tissue with fibrinous exudation, acute and chronic inflammation and granulation tissue reaction. Special stains for acid fast bacilli and fungi are negative for organisms; matched controls are appropriate. MARY ANN:aristides 09/10/20 MICROSCOPIC DESCRIPTION Slides are reviewed. GROSS DESCRIPTION Received in fixative is one container labeled with the patient's name and designated left foot ulcer. The specimen consists of multiple pieces of soft tissue that in aggregate measure 5 x 5 x 2 cm. V/Stol Landing Signal Officer sections are submitted in one cassette. / MARY ANN:aristides 09/09/20 TC:2 CPT: 88144, 79030 x2
[2020-09-08 06:55] LABS: Bedside Glucose 137 mg/dL (70-110)
--- NOTE | 2020-09-08 08:10 | PCM.PN.HOSP ---
Patient Problems: Active and Suspected Problems (This Medical Record has been edited. Action required.) Diabetic infection of left foot (Acute) Chest pain (Acute) Reason for Visit: Follow-up for bilateral feet ulcer. Objective: Patient has right fifth metatarsal rotation in the past and left fifth toe amputation. Left midfoot ulcer. No cellulitis or evidence of ischemia. Physical exam General: Alert, Oriented x3, Cooperative HEENT: Atraumatic, PERRLA, EOMI, Normocephalic Oral: No Gingival or Mucosal Lesions/ Ulcerations Neck: Supple, No JVD, Negative Carotid Bruits Lungs: Air entry diminished in bilateral lung bases. No crepitation/rhonchi Cardiovascular: Regular rate, Regular Rhythm, Normal S1, Normal S2, No murmurs. Decreased right and left CLIENT PARTNER and DPA pulsations. Abdomen: Bowel Sounds Present, Soft, Non Tender, Non-Distended : No renal angle tenderness. No suprapubic tenderness. Extremities: No edema, Capillary Refill Less than 3 Seconds Skin: Left plantar ulcer in lateral midfoot down to fascia level with nonviable tissue on the base. No active bleeding. Right ankle ulcers healed. Musculoskeletal: No Tenderness to Palpation of Joints or Extremities Neurological: Cranial nerves II-XII grossly intact, Deep Tendon Reflexes 2+/4 and Symmetrical, Neuro grossly intact Psych/Mental Status: Normal Affect, Appropriate. Vitals/I&O's: Vital Signs Temp Pulse Resp BP Pulse Ox 98.1 F 70 15 127/61 H 99 09/08/20 05:44 09/08/20 05:44 09/08/20 05:44 09/08/20 05:44 09/08/20 05:44 Oxygen Flow Rate (L/min) 2 Oxygen Delivery Method Room Air Weight: 198 lb 10.184 oz Body Mass Index (BMI) 32.1 Finger Stick Blood Glucose 91 Intake and Output for Last 24 Hours 09/06/20 09/07/20 09/08/20 23:59 23:59 23:59 Intake Total 1043.58 / 1143.58 1020 / 1020 Output Total 850 / 850 1100 / 1100 Balance 193.58 / 293.58 -80 / -80 Laboratory Results 09/07/20 12:59: POC Glucose 177 H 09/07/20 17:23: POC Glucose 156 H 09/07/20 22:10: POC Glucose 113 H 09/08/20 06:32: POC Glucose 137 H Current Medications Acetaminophen (Acetaminophen 325 Mg Tablet) 650 mg PO Q6H PRN PRN PRN Reason: Pain Score 1-10/Temp > 100.7 F Last Admin: 09/07/20 17:34 Dose: 650 mg Documented by: Al Hydroxide/Mg Hydroxide (Mag Hydrox/Al Hydrox/Simeth 30 Ml Udc) 30 ml PO Q6H PRN PRN PRN Reason: Gastric Burning Albuterol Sulfate (Albuterol 2.5 Mg/3 Ml Vial.Neb.) 2.5 mg INHALATION Q2H PRN PRN PRN Reason: Dyspnea, wheezing Aspirin (Aspirin E.C. 81 Mg Tablet) 81 mg PO DAILY@0800 [facility] Last Admin: 09/07/20 08:17 Dose: 81 mg Documented by: Atorvastatin Calcium (Atorvastatin Calcium 80 Mg Tablet) 80 mg PO QHS [facility] Last Admin: 09/07/20 22:06 Dose: 80 mg Documented by: Diphenhydramine HCl (Diphenhydramine 50 Mg/Ml Syringe) 25 mg IV Q6H PRN PRN PRN Reason: ITCHING Enoxaparin Sodium (Enoxaparin 40 Mg/0.4 Ml Syringe) 40 mg SC DAILY [facility] Last Admin: 09/07/20 08:19 Dose: 40 mg Documented by: Gabapentin (Gabapentin 300 Mg Capsule) 900 mg PO TIDCM [facility] Last Admin: 09/07/20 17:26 Dose: 900 mg Documented by: Guaifenesin (Guaifenesin 10 Ml Udc (200mg/10ml)) 20 ml PO Q4H PRN PRN PRN Reason: COUGH Hydralazine HCl (Hydralazine 20 Mg/Ml Vial) 10 mg IV Q4H PRN PRN PRN Reason: SBP > 160 Last Admin: 09/05/20 09:16 Dose: 10 mg Documented by: Sodium Chloride () 250 mls @ 15 mls/hr IV .[id number] PRN PRN Reason: Saline Flush Last Infusion: 09/06/20 02:42 Dose: 0 mls/hr Documented by: Sodium Chloride () 250 mls @ 15 mls/hr IV .[id number] PRN PRN Reason: Additional IVPB Infusion Sodium Chloride () 250 mls @ 15 mls/hr IV .[id number] PRN PRN Reason: Saline Flush Sodium Chloride () 250 mls @ 15 mls/hr IV .[id number] PRN PRN Reason: Additional IVPB Infusion Insulin Glargine (Insulin Glargine 100 Units/Ml Pen) 35 units SC BID [facility] Last Admin: 09/07/20 23:17 Dose: 17.5 u Documented by: Insulin Human Lispro (Insulin Lispro 100 Unit/Ml Insuln.Pen) 20 unit SC TIDCM [facility] Last Admin: 09/07/20 17:27 Dose: 20 units Documented by: Insulin Human Lispro (Insulin Lispro 100 Unit/Ml Insuln.Pen) 0 unit SC ACHS [facility]; Protocol Last Admin: 09/08/20 07:01 Dose: Not Given Documented by: Isosorbide Mononitrate (Isosorbide Mononitrate 30 Mg Tablet) 30 mg PO DAILY [facility] Last Admin: 09/07/20 08:18 Dose: 30 mg Documented by: Magnesium Hydroxide (Magnesium Hydroxide 30 Ml Udc) 30 ml PO DAILY PRN PRN PRN Reason: Constipation Melatonin (Melatonin 3 Mg Tablet) 3 mg PO QHS PRN PRN PRN Reason: INSOMNIA Nitroglycerin (Nitroglycerin (Inpatient Use) 0.4 Mg Tab.Subl) 0.4 mg SUBLINGUAL Q5M PRN PRN Reason: CARDIAC/CHEST PAIN Nutritional Formula (Nutritional Supplement (Ted) Packet) 1 packet PO BIDCM [facility] Last Admin: 09/07/20 17:27 Dose: Not Given Documented by: Nutritional Formula (Lactose Free) (Glucerna Shake 120 Ml Liquid) 120 ml PO 4X/DAY [facility] Last Admin: 09/07/20 22:07 Dose: Not Given Documented by: Ondansetron HCl (Ondansetron 4 Mg/2 Ml Vial) 4 mg IV Q8H PRN PRN PRN Reason: NAUSEA/VOMITING Last Admin: 09/04/20 23:40 Dose: 4 mg Documented by: Oxycodone HCl (Oxycodone 5 Mg Tablet) 5 mg PO Q4H PRN PRN PRN Reason: Pain Score 4-5 Last Admin: 09/06/20 16:22 Dose: 5 mg Documented by: Oxycodone HCl (Oxycodone 5 Mg Tablet) 10 mg PO Q4H PRN PRN PRN Reason: Pain Score 6-10 Last Admin: 09/07/20 20:13 Dose: 10 mg Documented by: Pantoprazole Sodium (Pantoprazole Sodium 40 Mg Tablet) 40 mg PO DAILY [facility] Last Admin: 09/07/20 08:20 Dose: 40 mg Documented by: Paroxetine HCl (Paroxetine 20 Mg Tablet) 20 mg PO QHS [facility] Last Admin: 09/07/20 22:06 Dose: 20 mg Documented by: Polysaccharide Iron Complex (Iron Polysaccharide Complex 150 Mg [facility]apsule) [facility] Last Admin: 09/07/20 08:17 Dose: 150 mg Documented by: Pramipexole Dihydrochloride (Pramipexole Di-Hcl 1 Mg Tablet) [facility] Last Admin: 09/07/20 22:06 Dose: 3 mg Documented by: Prochlorperazine Edisylate (Prochlorperazine 10 Mg/2 Ml Vial) 5 mg IV Q4H PRN PRN PRN Reason: Breakthrough Nausea/Vomiting Psyllium Hydrophilic Mucilloid (Psyllium 1 Packet) 1 packet PO DAILY PRN PRN PRN Reason: Constipation Senna/Docusate Sodium (Senna/Docusate Sodium 1 Tablet) 2 tablet PO BID PRN PRN PRN Reason: Constipation Last Admin: 09/07/20 13:34 Dose: 2 tablet Documented by: Sodium Chloride (0.9% Saline Lock 10 Ml Syringe) 10 - 40 ml IV UD PRN PRN Reason: SALINE FLUSH Last Admin: 09/06/20 02:16 Dose: 10 ml Documented by: Sodium Chloride (0.9% Saline Lock 10 Ml Syringe) 10 - 40 ml IV UD PRN PRN Reason: SALINE FLUSH Throat Lozenges (Benzocaine/Menthol 1 Lozenge) 1 lozenge MUCOUS MEM Q2H PRN PRN PRN Reason: SORE THROAT Trimethoprim/Sulfamethoxazole (Smz/Tmp Ds Tablet) [facility] Last Admin: 09/07/20 17:27 Dose: 1 tablet Documented by: Zolpidem Tartrate (Zolpidem Tartrate 5 Mg Tablet) [facility] Last Admin: 09/07/20 23:21 Dose: 5 mg Documented by: STROKE Vital Signs/Narrative: Vital Signs Temp Pulse Resp BP Pulse Ox 09/08/20 05:44 98.1 F 70 15 127/61 H 99 Medical Necessity - Tobacco Use Smoking Status: Never smoker Tobacco Use: Non-smoker Assessment/Plan All Active Problems (This Medical Record has been edited. Action required.) Diabetic infection of left foot (Acute) Chest pain (Acute) NSTEMI (non-ST elevated myocardial infarction) (Resolved 09/20/18) History of coronary artery stent placement (Resolved 09/21/18) Abscess of left foot (Resolved) Cellulitis of left foot (Resolved) Chest pain (Resolved) Diabetic foot infection (Resolved) Diarrhea (Resolved) Enteritis, Yersinia enterocolitica (Resolved) Hyperglycemia (Resolved) Intractable nausea and vomiting (Resolved) Malnutrition (Resolved) Necrotizing soft tissue infection (Resolved) Severe sepsis (Resolved) This is a 55-year-old female with multiple comorbidities including uncontrolled diabetes mellitus type 2 with diabetic neuropathy and Charcot's foot was admitted with left-sided chest pain. She also has chronic left plantar foot ulcer for 3 months. 1. chest pain: Resolved. Stress test negative. Possible costochondritis. CTA negative for pneumonia and pulmonary embolism. On PPI. GI follow-up as an outpatient. 2. Left foot diabetic infected ulcer: Patient had debridement on 09/02 complicated by bleeding. MRI did not show acute osteomyelitis.Cultures growing out Enterobacter, S. aureas and S. haemolyticus. Started trimethoprim/sulfamethoxazole 09/05. Patient further had debridement of left foot ulceration down to the fascial level. Tissue sent to pathology. May need wound VAC. 3. Acute blood loss anemia due to wound debridement secondary to left diabetic plantar ulcer: Dropped to 6.7/25. Had 2 units of PRBC transfusion. Last H&H 9.5.4. 4. LLE edema: improved per patient. Duplex negative. Concern for DVT as pt recently came back from [place]. Arterial study shows normal bilateral lower extremity resting RALPH and triphasic waveforms 09/01/2020.. Right RALPH 1.28. Left RALPH 1.3. 5. DM2, uncontrolled. A1c 9.8. On glargine and SSI log with meals. Glucose is running 103 and 95 today. Accu-Cheks in 100s yesterday. Insulin glargine decreased to 22 units of cutaneous twice daily and lispro 10 units of units 3 times daily with meals. Continue Accu-Cheks with coverage insulin. 6. VTE prophylaxis: SCDs. hold enoxaparin given anemia. 7. Disposition: shift manager and physical therapist working on it. Laboratory Results 09/07/20 17:23: POC Glucose 156 H 09/07/20 22:10: POC Glucose 113 H 09/08/20 06:32: POC Glucose 137 H 09/08/20 11:41: POC Glucose 103 09/08/20 12:15: POC Glucose 115 H 09/08/20 14:13: POC Glucose 95 09/08/20 15:13: POC Glucose 99 Clinical Impression(s) from Imaging Studies Chest X-Ray 08/31/20 18:46 IMPRESSION: Nonacute portable x-ray examination of the chest. Electronically Signed: Shan Cadet MD ([place]) at 19:08 EST , Service support , Chest CTA 08/31/20 19:17 IMPRESSION: 1. No pulmonary embolism 2. No acute chest findings. Electronically Signed: Janessa Baca at 20:03 EST Tel , Service support , Foot X-Ray 08/31/20 21:05 IMPRESSION: Status post resection of the fifth toe proximal shaft of the fifth metatarsal. Cannot definitively exclude early changes of acute osteomyelitis at the operative site. Clinical correlation recommended Electronically Signed: Jefe Cesar MD at 22:02 EST , Service support , Lower Extremity MRI 09/01/20 12:38 IMPRESSION: 1. Large 5.81 x 1.70 cm open skin defect/wound on the lateral plantar aspect of the foot contains fluid and debris and can be a infected. The investing fascia and the plantar aspect of the foot beneath the fourth metatarsal bone encloses the complex fluid collection, and there is no demonstrated intramuscular extension or contact with the overlying bony structures. 2. Mild cortical irregularity is present at the base and plantar and lateral aspect of the fifth metatarsal bone and cuboid which could be related to prior infection or sequela from previous trauma. 3. No active bone marrow edema or cortical erosion is seen to suggest active osteomyelitis. Electronically Signed: Noel De Jesus MD at 20:36 EST , Service support , Inpatient E&M: [id number] Subs Hosp L2
--- NOTE | 2020-09-08 09:19 | NURSING ---
wound photo: left plantar foot
[2020-09-08 11:51] LABS: Bedside Glucose 103 mg/dL (70-110)
[2020-09-08 12:20] LABS: Bedside Glucose 115 mg/dL (70-110)
--- NOTE | 2020-09-08 13:48 | PCM.OPRPT ---
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 Patient has been walking on it without offloading. I spoke with patient's daughter who relates patient was tried of wearing her diabetic shoes and decided to wear some sandals which caused the wound. Patient neglected care of it because she was in [place] with her . Patient relates she was walking on it for nearly 3 months before coming back to get care. Patient's daughter also relates she feels patient is not interested in eating right to control her diabetes. Upon exam there was noted to be significant nonviable tissue to the ulceration down to the fascia layer, it was cultured and grew out multiple organisms - Enterobacter, MSSA as well as staph haemolyticus. Patient was on IV antibiotics, now switched to oral Bactrim. MRI was obtained and noted to be complex fluid collection at the ulcer site consistent with nonviable unhealthy tissue. There was no noted evidence of osteomyelitis. Due to the findings we discussed debridement of the ulceration. The ulceration was debrided at bedside however there was significant bleeding due to patient being on Plavix. Further nonviable tissue remained. Plavix was held and bleeding controlled, hgb was down to 6.7 however increased back up to 9.5 with 2 units of pRBC. Patient agreed with operating room debridement of the ulceration to remove the nonviable tissue. The consent form was reviewed with her and she freely signed it. Patient was advised the risks include but not limited to pain, bleeding, nonhealing, delayed healing, Charcot foot, blood clots, infection, need for further surgery, weakness, loss of function, loss of limb, loss of life. Reviewed the importance of proper blood sugar control with patient in order to help optimize healing. Patient understands she is at high risks for further limb loss. No guarantees were given nor implied. No warranties were given. Operative procedure: The patient was brought back into the operating room and was placed on the operating room table in the supine position. Patient was carefully secured to the operating room table in the supine position. The patient was already on oral Bactrim. The patient received general anesthesia per the anesthesia team. A well padded pneumatic tourniquet was applied around the left ankle. The left foot was scrubbed, prepped, and draped in the usual aseptic fashion. A timeout was performed and the patient was properly identified and the surgical plan was confirmed. Further attention was directed to the ulceration plantar foot, it was located sub 5th metatarsal base and cuboid, it was down to the fascia layer, there was significant nonviable unhealthy necrotic tissue noted to the base and some to the margins, there was some undermining of the margins, it measured 3.2cm x 3.2cm and 0.5cm in depth prior to debridement. There was some serous drainage. There was no maloder, no fluctuance, no crepitus, no cellulitis, no streaking noted. There was no purulence noted. The left foot was elevated for 3 minutes and the left ankle pneumatic tourniquet was inflated to 250mmHg. The ulceration was debrided in excisional fashion using a 15 blade, removing all nonviable tissue down to the fascia layer. There was noted to be chronic abscess to the site which was debrided and excised. The debrided tissue was sent to pathology for further evaluation. Nothing was sent to microbiology because it has already been cultured with results showing multiple organisms as noted above. There was healthy tissue covering bone, and did not appear to be any bone involvement at this time. The site was flushed out with copious amounts of normal saline solution. Post debridement the ulceration measured 3.5cm x 3.5cm and 1.2cm in depth down to fascia layer. The remaining tissues at ulcer site post debridement were noted to be healthy and viable. A dressing was applied which consisted of 1/2in gauze packing, 4x4 gauze, Surgicel, kerlix, abd pads and brando bandages. The pneumatic tourniquet was deflated at 20 minutes and there was immediate return of warmth and perfusion to the foot, CFT < 2 seconds to all toes. Hemostasis was achieved at this time using pressure and bandaging as noted above. The patient tolerated the procedure well and the anesthesia well with no complications. The patient was transported to the recovery room with vital signs stable and in good condition. Post operative orders placed which includes - keeping left foot elevated, and no weightbearing left foot. Patient will be followed as inpatient. Grafts/Implants Used: None - Complications None
[2020-09-08 14:15] LABS: Bedside Glucose 95 mg/dL (70-110)
[2020-09-08] MEDS: Gabapentin 300 MG Capsule 900 MG PO (15:13)
[2020-09-08] MEDS: Aspirin E.C. 81 MG Tablet PO (15:14)
[2020-09-08] MEDS: Iron Polysaccharide Complex 150 MG CAPSULE PO (15:14)
[2020-09-08] MEDS: Isosorbide Mononitrate 30 MG Tablet PO (15:14)
[2020-09-08] MEDS: Pantoprazole Sodium 40 MG Tablet PO (15:14)
[2020-09-08] MEDS: Smz/Tmp Ds Tablet 1 TABLET PO (15:16)
[2020-09-08 15:25] LABS: Bedside Glucose 99 mg/dL (70-110)
[2020-09-08 17:40] LABS: Bedside Glucose 185 mg/dL (70-110)
[2020-09-08] MEDS: Insulin Lispro 100 UNIT/ML INSULN.PEN 10 UNIT SC (18:07)
[2020-09-08] MEDS: oxyCODONE 5 MG Tablet 10 MG PO (18:13)
[2020-09-08 20:49] LABS: Hematocrit 30.3 % (37-47); Hemoglobin 9.7 g/dL (12.0-15.0)
[2020-09-08] MEDS: Paroxetine 20 MG Tablet PO (21:59)
[2020-09-08] MEDS: Pramipexole Di-HCl 1 MG Tablet 3 MG PO (21:59)
[2020-09-08] MEDS: Atorvastatin Calcium 80 MG Tablet PO (21:59)
[2020-09-08] MEDS: Zolpidem Tartrate 5 MG Tablet PO (22:03)
[2020-09-08 22:05] LABS: Bedside Glucose 260 mg/dL (70-110)
[2020-09-08] MEDS: Insulin Lispro 100 UNIT/ML INSULN.PEN SC (22:06)
[2020-09-09 01:31] VITALS: BP 117/67; PULSE 84; RESP 16; TEMP 36.8; O2SAT 96
[2020-09-09] MEDS: 0.9% Saline Lock 10 ML Syringe IV ×2 (01:37→12:00)
[2020-09-09] MEDS: oxyCODONE 5 MG Tablet 10 MG PO ×2 (01:39→08:35)
[2020-09-09 05:17] VITALS: BP 118/69; PULSE 87; RESP 16; TEMP 36.9; O2SAT 95
[2020-09-09] MEDS: Insulin Lispro 100 UNIT/ML INSULN.PEN SC (06:41)
[2020-09-09 06:50] LABS: Bedside Glucose 213 mg/dL (70-110)
[2020-09-09 07:01] LABS: Absolute Lymphocyte Count 1.43 X10^3/uL (0.83-4.51); Absolute Neutrophil Count 6.4 X10^3/uL (2.0-7.7); Basophil# 0.04 X10^3/uL; Basophil% 0.5 % (0-1); Eosinophil# 0.21 X10^3/uL; Eosinophils% 2.4 % (0-5); Hematocrit 29.1 % (37-47); Hemoglobin 9.1 g/dL (12.0-15.0); Lymphocyte # 1.43 X10^3/ul (4.0); Lymphocyte % 16.5 % (19-41); Mean Corp Hgb Conc 31.3 g/dL (32-36); Mean Corpuscular Hgb 28.8 pg (27.0-32.0); Mean Corpuscular Volume 92.1 fL (81-99); Mean Platelet Vol. 9.5 fl (6.2-12.0); Monocyte# 0.56 X10^3/uL; Monocyte% 6.5 % (0-10); NRBC Flagged by Analyzer 0 % (0-5); Neutrophil # 6.38 X10^3/uL (2.7-7.7); Neutrophil % 73.5 % (47-70); Platelet Count 299 K/mm3 (150-450); RBC Distribution Width CV 13.6 % (11.6-14.6); RBC Distribution Width SD 45.4 fl (35.1-43.9); Red Blood Count 3.16 M/mm3 (4.2-5.4); White Blood Count 8.7 K/mm3 (4.4-11.0)
[2020-09-09 07:36] LABS: Anion Gap 7 (5-15); BUN 36 mg/dL (7-18); BUN/Creat Ratio 20.9 RATIO (10-20); Calcium,Total 8.5 mg/dL (8.5-10.1); Chloride 109 mmol/L (98-107); Creatinine, Serum 1.72 mg/dL (0.55-1.02); EST Glomerular Filtration Rate 33 mL/min (>60); Est Glom Filt Rate - Afr Amer 40 mL/min (>60); Glucose 213 mg/dL (74-106); Potassium 4.4 mmol/L (3.5-5.1); Sodium Level 138 mmol/L (136-145)
--- NOTE | 2020-09-09 07:37 | PCM.PROGNOTE ---
Patient Problems: Active and Suspected Problems (This Medical Record has been edited. Action required.) Diabetic infection of left foot (Acute) Chest pain (Acute) Subjective: This 55-year-old female with multiple comorbidities was seen bedside postoperative day #1 left foot debridement for treatment of infected chronic nonhealing wound. She denies fever, chill, nausea, vomiting, loss of appetite, chest pain or shortness of breath. She relates one of her blood thinners was stopped because she was seeing blood in her eyes . She rates her pain as a 4 out of 10 this morning. - Physical Exam Vitals/I&O's: Vital Signs Temp Pulse Resp BP Pulse Ox 98.4 F 87 16 118/69 95 09/09/20 05:17 09/09/20 05:17 09/09/20 05:17 09/09/20 05:17 09/09/20 05:17 Oxygen Flow Rate (L/min) 2 Oxygen Delivery Method Room Air Weight: 90.889 kg Body Mass Index (BMI) 32.1 Finger Stick Blood Glucose 95 Intake and Output for Last 24 Hours 09/07/20 09/08/20 09/09/20 23:59 23:59 23:59 Intake Total 1020 / 1020 240 / 390 300 / 300 Output Total 1100 / 1100 700 / 1100 700 / 700 Balance -80 / -80 -460 / -710 -400 / -400 General: Alert, Oriented x3, Cooperative HEENT: Atraumatic Extremities: No cyanosis, Capillary Refill Less than 3 Seconds, No Calf Tenderness - negative gabriel and araiza signs bilateral, Edema - mild to moderate lower extremity edema Skin: Ulcer/ Wound - Deep plantar left foot recently surgically debrided ulcer without purulence, odor, erythema, streaking, or signs of local infection. There is still moderate amount of continued bleeding and this area was packed again this morning. No other skin discontinuities are noted. Skin is hairless/atrophic Musculoskeletal: No Tenderness to Palpation of Joints or Extremities, Muscle Wasting, - - Compartment soft to palpate left lower extremity. Active range of motion remaining digits left foot. No bogginess or fluctuance on palpation periulcer Neurological: - - Lack of normal epicritic sensation to light touch is consistent with her neuropathy status Psych/Mental Status: Normal Affect, Appropriate Laboratory Results 09/08/20 11:41: POC Glucose 103 09/08/20 12:15: POC Glucose 115 H 09/08/20 14:13: POC Glucose 95 09/08/20 15:13: POC Glucose 99 09/08/20 17:38: POC Glucose 185 H 09/08/20 20:40: Hgb 9.7 L, Hct 30.3 L 09/08/20 21:56: POC Glucose 260 H 09/09/20 06:40: POC Glucose 213 H 09/09/20 06:50: WBC 8.7, RBC 3.16 L, Hgb 9.1 L, Hct 29.1 L, MCV 92.1, MCH 28.8, MCHC 31.3 L, RDW Std Deviation 45.4 H, RDW Coeff of Fior 13.6, Plt Count 299, MPV 9.5, Immature Gran % (Auto) 0.600, Neut % (Auto) 73.5 H, Lymph % (Auto) 16.5 L, [place] % (Auto) 6.5, Eos % (Auto) 2.4, Baso % (Auto) 0.5, Absolute Neuts (auto) 6.4, Absolute Lymphs (auto) 1.43, Nucleated RBC % 0 09/09/20 06:50: Sodium 138, Potassium 4.4, Chloride 109 H, Carbon Dioxide 22.0, Anion Gap 7, BUN 36 H, Creatinine 1.72 H, Estim Creat Clear Calc 34.60, Est GFR (MDRD) Af Amer 40 L, Est GFR (MDRD) Non-Af 33 L, BUN/Creatinine Ratio 20.9 H, Glucose 213 H, Calcium 8.5 Current Medications Acetaminophen (Acetaminophen 325 Mg Tablet) 650 mg PO Q6H PRN PRN PRN Reason: Pain Score 1-10/Temp > 100.7 F Last Admin: 09/07/20 17:34 Dose: 650 mg Documented by: Al Hydroxide/Mg Hydroxide (Mag Hydrox/Al Hydrox/Simeth 30 Ml Udc) 30 ml PO Q6H PRN PRN PRN Reason: Gastric Burning Albuterol Sulfate (Albuterol 2.5 Mg/3 Ml Vial.Neb.) 2.5 mg INHALATION Q2H PRN PRN PRN Reason: Dyspnea, wheezing Aspirin (Aspirin E.C. 81 Mg Tablet) 81 mg PO DAILY@0800 TAB Last Admin: 09/08/20 15:14 Dose: 81 mg Documented by: Atorvastatin Calcium (Atorvastatin Calcium 80 Mg Tablet) 80 mg PO QHS [facility] Last Admin: 09/08/20 21:59 Dose: 80 mg Documented by: Clopidogrel Bisulfate (Clopidogrel Bisulfate 75 Mg Tablet) 75 mg PO DAILY [facility] Diphenhydramine HCl (Diphenhydramine 50 Mg/Ml Syringe) 25 mg IV Q6H PRN PRN PRN Reason: ITCHING Gabapentin (Gabapentin 300 Mg Capsule) 900 mg PO TIDCM [facility] Last Admin: 09/08/20 15:13 Dose: 900 mg Documented by: Guaifenesin (Guaifenesin 10 Ml Udc (200mg/10ml)) 20 ml PO Q4H PRN PRN PRN Reason: COUGH Hydralazine HCl (Hydralazine 20 Mg/Ml Vial) 10 mg IV Q4H PRN PRN PRN Reason: SBP > 160 Last Admin: 09/05/20 09:16 Dose: 10 mg Documented by: Sodium Chloride () 250 mls @ 15 mls/hr IV .[id number] PRN PRN Reason: Saline Flush Last Infusion: 09/06/20 02:42 Dose: 0 mls/hr Documented by: Sodium Chloride () 250 mls @ 15 mls/hr IV .[id number] PRN PRN Reason: Additional IVPB Infusion Sodium Chloride () 250 mls @ 15 mls/hr IV .[id number] PRN PRN Reason: Saline Flush Sodium Chloride () 250 mls @ 15 mls/hr IV .[id number] PRN PRN Reason: Additional IVPB Infusion Insulin Glargine (Insulin Glargine 100 Units/Ml Pen) 22 units SC BID [facility] Last Admin: 09/08/20 22:07 Dose: 22 units Documented by: Insulin Human Lispro (Insulin Lispro 100 Unit/Ml Insuln.Pen) 0 unit SC [facility]; Protocol Last Admin: 09/09/20 06:41 Dose: 4 units Documented by: Insulin Human Lispro (Insulin Lispro 100 Unit/Ml Insuln.Pen) 10 unit SC TIDCM [facility] Last Admin: 09/08/20 18:07 Dose: 10 u Documented by: Isosorbide Mononitrate (Isosorbide Mononitrate 30 Mg Tablet) 30 mg PO DAILY [facility] Last Admin: 09/08/20 15:14 Dose: 30 mg Documented by: Magnesium Hydroxide (Magnesium Hydroxide 30 Ml Udc) 30 ml PO DAILY PRN PRN PRN Reason: Constipation Melatonin (Melatonin 3 Mg Tablet) 3 mg PO QHS PRN PRN PRN Reason: INSOMNIA Nitroglycerin (Nitroglycerin (Inpatient Use) 0.4 Mg Tab.Subl) 0.4 mg SUBLINGUAL Q5M PRN PRN Reason: CARDIAC/CHEST PAIN Ondansetron HCl (Ondansetron 4 Mg/2 Ml Vial) 4 mg IV Q8H PRN PRN PRN Reason: NAUSEA/VOMITING Last Admin: 09/04/20 23:40 Dose: 4 mg Documented by: Oxycodone HCl (Oxycodone 5 Mg Tablet) 5 mg PO Q4H PRN PRN PRN Reason: Pain Score 4-5 Last Admin: 09/06/20 16:22 Dose: 5 mg Documented by: Oxycodone HCl (Oxycodone 5 Mg Tablet) 10 mg PO Q4H PRN PRN PRN Reason: Pain Score 6-10 Last Admin: 09/09/20 01:39 Dose: 10 mg Documented by: Pantoprazole Sodium (Pantoprazole Sodium 40 Mg Tablet) 40 mg PO DAILY [facility] Last Admin: 09/08/20 15:14 Dose: 40 mg Documented by: Paroxetine HCl (Paroxetine 20 Mg Tablet) 20 mg PO QHS [facility] Last Admin: 09/08/20 21:59 Dose: 20 mg Documented by: Polysaccharide Iron Complex (Iron Polysaccharide Complex 150 Mg Capsule) [facility] Last Admin: 09/08/20 15:14 Dose: 150 mg Documented by: Pramipexole Dihydrochloride (Pramipexole Di-Hcl 1 Mg Tablet) 3 mg PO QHS [facility] Last Admin: 09/08/20 21:59 Dose: 3 mg Documented by: Prochlorperazine Edisylate (Prochlorperazine 10 Mg/2 Ml Vial) 5 mg IV Q4H PRN PRN PRN Reason: Breakthrough Nausea/Vomiting Psyllium Hydrophilic Mucilloid (Psyllium 1 Packet) 1 packet PO DAILY PRN PRN PRN Reason: Constipation Senna/Docusate Sodium (Senna/Docusate Sodium 1 Tablet) 2 tablet PO BID PRN PRN PRN Reason: Constipation Last Admin: 09/07/20 13:34 Dose: 2 tablet Documented by: Sodium Chloride (0.9% Saline Lock 10 Ml Syringe) 10 - 40 ml IV UD PRN PRN Reason: SALINE FLUSH Last Admin: 09/09/20 01:37 Dose: 10 ml Documented by: Sodium Chloride (0.9% Saline Lock 10 Ml Syringe) 10 - 40 ml IV UD PRN PRN Reason: SALINE FLUSH Throat Lozenges (Benzocaine/Menthol 1 Lozenge) 1 lozenge MUCOUS MEM Q2H PRN PRN PRN Reason: SORE THROAT Trimethoprim/Sulfamethoxazole (Smz/Tmp Ds Tablet) 1 tablet PO BIDCM [facility] Last Admin: 09/08/20 15:16 Dose: 1 tablet Documented by: Zolpidem Tartrate (Zolpidem Tartrate 5 Mg Tablet) 5 mg PO QHS [facility] Last Admin: 09/08/20 22:03 Dose: 5 mg Documented by: Medical Necessity - Tobacco Use Smoking Status: Never smoker Tobacco Use: Non-smoker Assessment/Plan All Active Problems (This Medical Record has been edited. Action required.) Diabetic infection of left foot (Acute) Chest pain (Acute) NSTEMI (non-ST elevated myocardial infarction) (Resolved 09/20/18) History of coronary artery stent placement (Resolved 09/21/18) Abscess of left foot (Resolved) Cellulitis of left foot (Resolved) Chest pain (Resolved) Diabetic foot infection (Resolved) Diarrhea (Resolved) Enteritis, Yersinia enterocolitica (Resolved) Hyperglycemia (Resolved) Intractable nausea and vomiting (Resolved) Malnutrition (Resolved) Necrotizing soft tissue infection (Resolved) Severe sepsis (Resolved) Left plantar foot ulceration down to fascia layer now s/p debridement (day #1, Dr. 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 Culture reviewed: multiple organisms noted, staph aureus, Enterobacter, and staph hemolyticus - pt on oral Bactrim. Reviewed noninvasive lower extremity arterial studies: good arterial flow to foot. Discharge planning: patient will need to be strict nonweightbearing left foot - per PT patient did well with nonweightbearing, also will need close wound care to foot by nursing. We discussed possible d/c home, however patient will need home nursing daily dressing changes or wound vac once her hemostasis is fully controlled. Dressing changed this morning and additional pressure and gel foam was applied. To maintain strict non weightbearing status and reduce activity this morning. Hold anticoagulation medication. I recommend improved hemostasis prior to wound vac application. To elevate the limb No infection or purulence was noted clinically. Medical management and dvt prophylaxis per primary team is appreciated. Her prior blood transfusion is noted. Her reduced kidney function is also noted. Podiatry will continue to follow closely. Please call if questions. Lavern Edgar DPM, [facility] [phone]
[2020-09-09] MEDS: Aspirin E.C. 81 MG Tablet PO (08:35)
[2020-09-09] MEDS: Smz/Tmp Ds Tablet 1 TABLET PO ×2 (08:35→17:22)
[2020-09-09] MEDS: Gabapentin 300 MG Capsule 900 MG PO ×3 (08:35→17:22)
[2020-09-09] MEDS: Pantoprazole Sodium 40 MG Tablet PO (08:35)
[2020-09-09] MEDS: Iron Polysaccharide Complex 150 MG CAPSULE PO (08:35)
[2020-09-09] MEDS: Isosorbide Mononitrate 30 MG Tablet PO (08:36)
[2020-09-09] MEDS: Insulin Lispro 100 UNIT/ML INSULN.PEN 10 UNIT SC ×3 (08:36→17:21)
[2020-09-09] MEDS: Senna/Docusate Sodium 1 Tablet 2 TABLET PO (08:43)
[2020-09-09 09:15] VITALS: BP 101/56; PULSE 82; RESP 18; TEMP 36.9; O2SAT 96
--- NOTE | 2020-09-09 10:07 | NURSING ---
Received call from Dr Edgar. states the dressing to the left foot was changed this am and had a moderate amount of bleeding. wants dressing left in place at this time.
[2020-09-09 12:06] LABS: Bedside Glucose 125 mg/dL (70-110)
[2020-09-09 13:15] VITALS: BP 110/51; PULSE 74; RESP 18; TEMP 36.9; O2SAT 94
--- NOTE | 2020-09-09 13:18 | CASEMGMT ---
Per therapy if patient is going home with her daughter she will have 6 steps to get inside. They are not sure she can do this. LUCRETIA met with patient, introduced self and role at [facility]. Patient said she is not sure what she is doing yet. She said she was told someone could come to her home and change the wound vac 3 times a week. SW told her that is true, but asked about the steps into her daughter's home. She said if she gets her electric paid she could go to her home where everything is all one level. She said she spoke to [facility] and they need her electric bill and proof of income. LUCRETIA asked if there was anyone that could gather this information for her while she is in the hospital and she said she did not know. LUCRETIA told her if someone could get the information to [facility] SW could fax the information to [facility]. LUCRETIA asked her if she decides to go to a senior care which one would she prefer. She said she has been to [facility] before and would go there. LUCRETIA told her to think of a second choice in case they cannot take her. Kamilla MCCORD MSW
[2020-09-09 16:35] LABS: Bedside Glucose 124 mg/dL (70-110)
--- NOTE | 2020-09-09 16:43 | PCM.PN.HOSP ---
Patient Problems: Active and Suspected Problems (This Medical Record has been edited. Action required.) Diabetic infection of left foot (Acute) Chest pain (Acute) Reason for Visit: Follow-up for port infection. Objective: Patient had no feve. As per the nursing staff, patient had bleeding on the left foot after surgery. Patient had debridement left foot ulceration down to the fascial level. Hemoglobin did not show much drop from 9.5-9.1. Creatinine went up from 0.97-1.72. Patient also says that she has blurry vision for last 3 days but she is telling today. She further states he had bleeding in the eyes past and saw funeral home general manager. She does not remember the name. She does not remember any procedure done. She denies shadow or curtain coming down. Physical exam General: Alert, Oriented x3, Cooperative HEENT: Atraumatic, PERRLA, EOMI, Normocephalic. No opacity seen in anterior chamber. Mild decrease in the peripheral field of vision mainly on the right eye, seems chronic. Oral: No Gingival or Mucosal Lesions/ Ulcerations Neck: Supple, No JVD, Negative Carotid Bruits Lungs: Air entry diminished in bilateral lung bases. No crepitation/rhonchi Cardiovascular: Regular rate, Regular Rhythm, Normal S1, Normal S2, No murmurs Abdomen: Bowel Sounds Present, Soft, Non Tender, Non-Distended : No renal angle tenderness. No suprapubic tenderness. Extremities: No edema, Capillary Refill Less than 3 Seconds Skin: No rashes, No breakdown Musculoskeletal: No Tenderness to Palpation of Joints or Extremities Neurological: Cranial nerves II-XII grossly intact, Deep Tendon Reflexes 2+/4 and Symmetrical, Neuro grossly intact Psych/Mental Status: Normal Affect, Appropriate. Vitals/I&O's: Vital Signs Temp Pulse Resp BP Pulse Ox 98.5 F 74 18 110/51 L 94 09/09/20 13:15 09/09/20 13:15 09/09/20 13:15 09/09/20 13:15 09/09/20 13:15 Oxygen Flow Rate (L/min) 2 Oxygen Delivery Method Room Air Weight: 200 lb 6 oz Body Mass Index (BMI) 32.1 Finger Stick Blood Glucose 95 Intake and Output for Last 24 Hours 09/07/20 09/08/20 09/09/20 23:59 23:59 23:59 Intake Total 1020 / 1020 240 / 390 1270 / 1270 Output Total 1100 / 1100 700 / 1100 700 / 700 Balance -80 / -80 -460 / -710 570 / 570 Laboratory Results 09/08/20 17:38: POC Glucose 185 H 09/08/20 20:40: Hgb 9.7 L, Hct 30.3 L 09/08/20 21:56: POC Glucose 260 H 09/09/20 06:40: POC Glucose 213 H 09/09/20 06:50: WBC 8.7, RBC 3.16 L, Hgb 9.1 L, Hct 29.1 L, MCV 92.1, MCH 28.8, MCHC 31.3 L, RDW Std Deviation 45.4 H, RDW Coeff of Fior 13.6, Plt Count 299, MPV 9.5, Immature Gran % (Auto) 0.600, Neut % (Auto) 73.5 H, Lymph % (Auto) 16.5 L, [place] % (Auto) 6.5, Eos % (Auto) 2.4, Baso % (Auto) 0.5, Absolute Neuts (auto) 6.4, Absolute Lymphs (auto) 1.43, Nucleated RBC % 0 09/09/20 06:50: Sodium 138, Potassium 4.4, Chloride 109 H, Carbon Dioxide 22.0, Anion Gap 7, BUN 36 H, Creatinine 1.72 H, Estim Creat Clear Calc 34.60, Est GFR (MDRD) Af Amer 40 L, Est GFR (MDRD) Non-Af 33 L, BUN/Creatinine Ratio 20.9 H, Glucose 213 H, Calcium 8.5 09/09/20 11:46: POC Glucose 125 H 09/09/20 16:25: POC Glucose 124 H Current Medications Acetaminophen (Acetaminophen 325 Mg Tablet) 650 mg PO Q6H PRN PRN PRN Reason: Pain Score 1-10/Temp > 100.7 F Last Admin: 09/07/20 17:34 Dose: 650 mg Documented by: Al Hydroxide/Mg Hydroxide (Mag Hydrox/Al Hydrox/Simeth 30 Ml Udc) 30 ml PO Q6H PRN PRN PRN Reason: Gastric Burning Albuterol Sulfate (Albuterol 2.5 Mg/3 Ml Vial.Neb.) 2.5 mg INHALATION Q2H PRN PRN PRN Reason: Dyspnea, wheezing Aspirin (Aspirin E.C. 81 Mg Tablet) 81 mg PO DAILY@0800 [facility] Last Admin: 09/09/20 08:35 Dose: 81 mg Documented by: Atorvastatin Calcium (Atorvastatin Calcium 80 Mg Tablet) 80 mg PO QHS [facility] Last Admin: 09/08/20 21:59 Dose: 80 mg Documented by: Diphenhydramine HCl (Diphenhydramine 50 Mg/Ml Syringe) 25 mg IV Q6H PRN PRN PRN Reason: ITCHING Gabapentin (Gabapentin 300 Mg Capsule) 900 mg PO TIDCM [facility] Last Admin: 09/09/20 12:02 Dose: 900 mg Documented by: Guaifenesin (Guaifenesin 10 Ml Udc (200mg/10ml)) 20 ml PO Q4H PRN PRN PRN Reason: COUGH Hydralazine HCl (Hydralazine 20 Mg/Ml Vial) 10 mg IV Q4H PRN PRN PRN Reason: SBP > 160 Last Admin: 09/05/20 09:16 Dose: 10 mg Documented by: Sodium Chloride () 250 mls @ 15 mls/hr IV .[id number] PRN PRN Reason: Saline Flush Last Infusion: 09/06/20 02:42 Dose: 0 mls/hr Documented by: Sodium Chloride () 250 mls @ 15 mls/hr IV .[id number] PRN PRN Reason: Additional IVPB Infusion Sodium Chloride () 250 mls @ 15 mls/hr IV .[id number] PRN PRN Reason: Saline Flush Sodium Chloride () 250 mls @ 15 mls/hr IV .[id number] PRN PRN Reason: Additional IVPB Infusion Insulin Glargine (Insulin Glargine 100 Units/Ml Pen) 22 units SC BID [facility] Last Admin: 09/09/20 08:37 Dose: 22 units Documented by: Insulin Human Lispro (Insulin Lispro 100 Unit/Ml Insuln.Pen) [facility] Last Admin: 09/09/20 12:02 Dose: Not Given Documented by: Insulin Human Lispro (Insulin Lispro 100 Unit/Ml Insuln.Pen) 10 unit SC [facility] Last Admin: 09/09/20 12:02 Dose: 10 u Documented by: Isosorbide Mononitrate (Isosorbide Mononitrate 30 Mg Tablet) 30 mg PO DAILY [facility] Last Admin: 09/09/20 08:36 Dose: 30 mg Documented by: Magnesium Hydroxide (Magnesium Hydroxide 30 Ml Udc) 30 ml PO DAILY PRN PRN PRN Reason: Constipation Melatonin (Melatonin 3 Mg Tablet) 3 mg PO QHS PRN PRN PRN Reason: INSOMNIA Nitroglycerin (Nitroglycerin (Inpatient Use) 0.4 Mg Tab.Subl) 0.4 mg SUBLINGUAL Q5M PRN PRN Reason: CARDIAC/CHEST PAIN Ondansetron HCl (Ondansetron 4 Mg/2 Ml Vial) 4 mg IV Q8H PRN PRN PRN Reason: NAUSEA/VOMITING Last Admin: 09/04/20 23:40 Dose: 4 mg Documented by: Oxycodone HCl (Oxycodone 5 Mg Tablet) 5 mg PO Q4H PRN PRN PRN Reason: Pain Score 4-5 Last Admin: 09/06/20 16:22 Dose: 5 mg Documented by: Oxycodone HCl (Oxycodone 5 Mg Tablet) 10 mg PO Q4H PRN PRN PRN Reason: Pain Score 6-10 Last Admin: 09/09/20 08:35 Dose: 10 mg Documented by: Pantoprazole Sodium (Pantoprazole Sodium 40 Mg Tablet) 40 mg PO DAILY [facility] Last Admin: 09/09/20 08:35 Dose: 40 mg Documented by: Paroxetine HCl (Paroxetine 20 Mg Tablet) 20 mg PO QHS [facility] Last Admin: 09/08/20 21:59 Dose: 20 mg Documented by: Polysaccharide Iron Complex (Iron Polysaccharide Complex 150 Mg Capsule) [facility] Last Admin: 09/09/20 08:35 Dose: 150 mg Documented by: Pramipexole Dihydrochloride (Pramipexole Di-Hcl 1 Mg Tablet) 3 mg PO QHS [facility] Last Admin: 09/08/20 21:59 Dose: 3 mg Documented by: Prochlorperazine Edisylate (Prochlorperazine 10 Mg/2 Ml Vial) 5 mg IV Q4H PRN PRN PRN Reason: Breakthrough Nausea/Vomiting Psyllium Hydrophilic Mucilloid (Psyllium 1 Packet) 1 packet PO DAILY PRN PRN PRN Reason: Constipation Senna/Docusate Sodium (Senna/Docusate Sodium 1 Tablet) 2 tablet PO BID PRN PRN PRN Reason: Constipation Last Admin: 09/09/20 08:43 Dose: 2 tablet Documented by: Sodium Chloride (0.9% Saline Lock 10 Ml Syringe) 10 - 40 ml IV UD PRN PRN Reason: SALINE FLUSH Last Admin: 09/09/20 01:37 Dose: 10 ml Documented by: Sodium Chloride (0.9% Saline Lock 10 Ml Syringe) 10 - 40 ml IV UD PRN PRN Reason: SALINE FLUSH Last Admin: 09/09/20 12:00 Dose: 10 ml Documented by: Throat Lozenges (Benzocaine/Menthol 1 Lozenge) 1 lozenge MUCOUS MEM Q2H PRN PRN PRN Reason: SORE THROAT Trimethoprim/Sulfamethoxazole (Smz/Tmp Ds Tablet) [facility] Last Admin: 09/09/20 08:35 Dose: 1 tablet Documented by: Zolpidem Tartrate (Zolpidem Tartrate 5 Mg Tablet) 5 mg PO QHS [facility] Last Admin: 09/08/20 22:03 Dose: 5 mg Documented by: STROKE Vital Signs/Narrative: Vital Signs Temp Pulse Resp BP Pulse Ox 09/09/20 13:15 98.5 F 74 18 110/51 L 94 Medical Necessity - Tobacco Use Smoking Status: Never smoker Tobacco Use: Non-smoker Assessment/Plan All Active Problems (This Medical Record has been edited. Action required.) Diabetic infection of left foot (Acute) Chest pain (Acute) NSTEMI (non-ST elevated myocardial infarction) (Resolved 09/20/18) History of coronary artery stent placement (Resolved 09/21/18) Abscess of left foot (Resolved) Cellulitis of left foot (Resolved) Chest pain (Resolved) Diabetic foot infection (Resolved) Diarrhea (Resolved) Enteritis, Yersinia enterocolitica (Resolved) Hyperglycemia (Resolved) Intractable nausea and vomiting (Resolved) Malnutrition (Resolved) Necrotizing soft tissue infection (Resolved) Severe sepsis (Resolved) This is a 55-year-old female with multiple comorbidities including uncontrolled diabetes mellitus type 2 with diabetic neuropathy and Charcot's foot was admitted with left-sided chest pain. She also has chronic left plantar foot ulcer for 3 months. 1. chest pain: Resolved. Stress test negative. Possible costochondritis. CTA negative for pneumonia and pulmonary embolism. On PPI. GI follow-up as an outpatient. 2. Left foot diabetic infected ulcer: Patient had debridement on 09/02 complicated by bleeding. MRI did not show acute osteomyelitis.Cultures growing out Enterobacter, S. aureas and S. haemolyticus. Started trimethoprim/sulfamethoxazole 09/05. Patient further had debridement of left foot ulceration down to the fascial level. Tissue sent to pathology. May need wound VAC. 09/09: There was bleeding after surgery from the left foot. Bleeding is controlled. No major drop in H&H from 9.5-9.1. 3. Acute blood loss anemia due to wound debridement secondary to left diabetic plantar ulcer: Dropped to 6.7/25. Had 2 units of PRBC transfusion. Last H&H .03/07.4. 4. LLE edema: improved per patient. Duplex negative. Concern for DVT as pt recently came back from [place]. Arterial study shows normal bilateral lower extremity resting RALPH and triphasic waveforms 09/01/2020.. Right RALPH 1.28. Left RALPH 1.3. 5. DM2, uncontrolled, complicated with diabetic neuropathy, Charcot's and probably diabetic retinopathy: A1c 9.8. On glargine and SSI log with meals. Glucose is running 103 and 95 today. Accu-Cheks in 100s yesterday. Insulin glargine decreased to 22 units of cutaneous twice daily and lispro 10 units of units 3 times daily with meals. Continue Accu-Cheks with coverage insulin. 09/09: Patient complain of blurry vision for 3 days but she told today and Dots and blots, I talked to the funeral home general manager Dr. Crawford. He did not find any previous records in his office. He further agreed to see the patient on the same day of discharge and easy to examine and complete evaluation in the office as they have ophthalmology equipments. We both agree. Blood sugars are reasonably well controlled. 6. VTE prophylaxis: SCDs. hold enoxaparin given anemia. 7. Disposition: home care manager rn and physical therapist working on it. Laboratory Results 09/08/20 17:38: POC Glucose 185 H 09/08/20 20:40: Hgb 9.7 L, Hct 30.3 L 09/08/20 21:56: POC Glucose 260 H 09/09/20 06:40: POC Glucose 213 H 09/09/20 06:50: WBC 8.7, RBC 3.16 L, Hgb 9.1 L, Hct 29.1 L, MCV 92.1, MCH 28.8, MCHC 31.3 L, RDW Std Deviation 45.4 H, RDW Coeff of Fior 13.6, Plt Count 299, MPV 9.5, Immature Gran % (Auto) 0.600, Neut % (Auto) 73.5 H, Lymph % (Auto) 16.5 L, [place] % (Auto) 6.5, Eos % (Auto) 2.4, Baso % (Auto) 0.5, Absolute Neuts (auto) 6.4, Absolute Lymphs (auto) 1.43, Nucleated RBC % 0 09/09/20 06:50: Sodium 138, Potassium 4.4, Chloride 109 H, Carbon Dioxide 22.0, Anion Gap 7, BUN 36 H, Creatinine 1.72 H, Estim Creat Clear Calc 34.60, Est GFR (MDRD) Af Amer 40 L, Est GFR (MDRD) Non-Af 33 L, BUN/Creatinine Ratio 20.9 H, Glucose 213 H, Calcium 8.5 09/09/20 11:46: POC Glucose 125 H 09/09/20 16:25: POC Glucose 124 H Clinical Impression(s) from Imaging Studies Chest X-Ray 08/31/20 18:46 IMPRESSION: Nonacute portable x-ray examination of the chest. Electronically Signed: Shan Cadet MD ([place]) at 19:08 EST , Service support , Chest CTA 08/31/20 19:17 IMPRESSION: 1. No pulmonary embolism 2. No acute chest findings. Electronically Signed: Janessa Baca, at 20:03 EST Tel , Service support , Foot X-Ray 08/31/20 21:05 IMPRESSION: Status post resection of the fifth toe proximal shaft of the fifth metatarsal. Cannot definitively exclude early changes of acute osteomyelitis at the operative site. Clinical correlation recommended Electronically Signed: Jefe Cesar MD at 22:02 EST , Service support , Lower Extremity MRI 09/01/20 12:38 IMPRESSION: 1. Large 5.81 x 1.70 cm open skin defect/wound on the lateral plantar aspect of the foot contains fluid and debris and can be a infected. The investing fascia and the plantar aspect of the foot beneath the fourth metatarsal bone encloses the complex fluid collection, and there is no demonstrated intramuscular extension or contact with the overlying bony structures. 2. Mild cortical irregularity is present at the base and plantar and lateral aspect of the fifth metatarsal bone and cuboid which could be related to prior infection or sequela from previous trauma. 3. No active bone marrow edema or cortical erosion is seen to suggest active osteomyelitis. Electronically Signed: Noel De Jesus MD at 20:36 EST , Service support , Inpatient E&M: [id number] Subs Hosp L2
[2020-09-09 17:15] VITALS: BP 128/71; PULSE 81; RESP 18; TEMP 36.6; O2SAT 96
[2020-09-09] MEDS: Zolpidem Tartrate 5 MG Tablet PO (20:59)
[2020-09-09] MEDS: Atorvastatin Calcium 80 MG Tablet PO (20:59)
[2020-09-09] MEDS: Pramipexole Di-HCl 1 MG Tablet 3 MG PO (20:59)
[2020-09-09] MEDS: Paroxetine 20 MG Tablet PO (21:00)
[2020-09-09] MEDS: Acetaminophen 325 MG Tablet 650 MG PO (21:00)
[2020-09-09] MEDS: oxyCODONE 5 MG Tablet PO (21:00)
[2020-09-09 21:10] VITALS: BP 140/75; PULSE 83; RESP 16; TEMP 36.9; O2SAT 96
[2020-09-09 21:10] LABS: Bedside Glucose 113 mg/dL (70-110)
[2020-09-10] VITALS (7 sets, daily range): BP systolic 137–157; BP diastolic 66–75; PULSE 75–89; RESP 14–18; TEMP 36.8–37.1; O2SAT 95–97
[2020-09-10 05:38] LABS: Absolute Lymphocyte Count 1.57 X10^3/uL (0.83-4.51); Absolute Neutrophil Count 5.7 X10^3/uL (2.0-7.7); Basophil# 0.03 X10^3/uL; Basophil% 0.4 % (0-1); Eosinophil# 0.27 X10^3/uL; Eosinophils% 3.3 % (0-5); Hematocrit 29.8 % (37-47); Hemoglobin 9.6 g/dL (12.0-15.0); Lymphocyte # 1.57 X10^3/ul (4.0); Lymphocyte % 19.4 % (19-41); Mean Corp Hgb Conc 32.2 g/dL (32-36); Mean Corpuscular Hgb 29.4 pg (27.0-32.0); Mean Corpuscular Volume 91.1 fL (81-99); Mean Platelet Vol. 10.2 fl (6.2-12.0); Monocyte% 6.2 % (0-10); NRBC Flagged by Analyzer 0 % (0-5); Neutrophil % 70.5 % (47-70); Platelet Count 311 K/mm3 (150-450); RBC Distribution Width CV 13.2 % (11.6-14.6); RBC Distribution Width SD 43.6 fl (35.1-43.9); Red Blood Count 3.27 M/mm3 (4.2-5.4); White Blood Count 8.1 K/mm3 (4.4-11.0)
[2020-09-10 06:05] LABS: Anion Gap 4 (5-15); BUN 36 mg/dL (7-18); BUN/Creat Ratio 21.1 RATIO (10-20); Chloride 109 mmol/L (98-107); Creatinine, Serum 1.71 mg/dL (0.55-1.02); EST Glomerular Filtration Rate 33 mL/min (>60); Est Glom Filt Rate - Afr Amer 40 mL/min (>60); Glucose 225 mg/dL (74-106); Potassium 5.2 mmol/L (3.5-5.1); Sodium Level 138 mmol/L (136-145)
--- NOTE | 2020-09-10 06:17 | PCM.PROGNOTE ---
Patient Problems: Active and Suspected Problems (This Medical Record has been edited. Action required.) Diabetic infection of left foot (Acute) Chest pain (Acute) Subjective: This 55-year-old female with multiple comorbidities was seen bedside postoperative day #2 left foot debridement for treatment of infected chronic nonhealing wound. She denies fever, chill, nausea, vomiting, loss of appetite, chest pain or shortness of breath. Her pain is mild and is rated at a 4 out of 10 this morning at worst. She relates she is amenable to go to intermediate facility and asked what the status of her discharge is. - Physical Exam Vitals/I&O's: Vital Signs Temp Pulse Resp BP Pulse Ox 98.7 F 85 18 157/75 H 96 09/10/20 02:48 09/10/20 02:48 09/10/20 02:48 09/10/20 02:48 09/10/20 02:48 Oxygen Flow Rate (L/min) 2 Oxygen Delivery Method Room Air Weight: 90.889 kg Body Mass Index (BMI) 32.1 Finger Stick Blood Glucose 95 Intake and Output for Last 24 Hours 09/08/20 09/09/20 09/10/20 23:59 23:59 23:59 Intake Total 240 / 390 2110 / 2110 Output Total 700 / 1100 900 / 900 800 / 800 Balance -460 / -710 1210 / 1210 -800 / -800 General: Alert, Oriented x3, Cooperative Extremities: No cyanosis, Capillary Refill Less than 3 Seconds, No Calf Tenderness, Edema - Mild Skin: Ulcer/ Wound - Dressing is clean, dry, and intact without strikethrough or adjacent redness or streaking Musculoskeletal: No Tenderness to Palpation of Joints or Extremities, Muscle Wasting, - - Active range of motion is 1, 2, 3, 4 left foot Neurological: - - Lack of epicritic sensation is consistent with altered neuropathy Psych/Mental Status: Normal Affect, Appropriate Laboratory Results 09/09/20 06:40: POC Glucose 213 H 09/09/20 06:50: WBC 8.7, RBC 3.16 L, Hgb 9.1 L, Hct 29.1 L, MCV 92.1, MCH 28.8, MCHC 31.3 L, RDW Std Deviation 45.4 H, RDW Coeff of Fior 13.6, Plt Count 299, MPV 9.5, Immature Gran % (Auto) 0.600, Neut % (Auto) 73.5 H, Lymph % (Auto) 16.5 L, [place] % (Auto) 6.5, Eos % (Auto) 2.4, Baso % (Auto) 0.5, Absolute Neuts (auto) 6.4, Absolute Lymphs (auto) 1.43, Nucleated RBC % 0 09/09/20 06:50: Sodium 138, Potassium 4.4, Chloride 109 H, Carbon Dioxide 22.0, Anion Gap 7, BUN 36 H, Creatinine 1.72 H, Estim Creat Clear Calc 34.60, Est GFR (MDRD) Af Amer 40 L, Est GFR (MDRD) Non-Af 33 L, BUN/Creatinine Ratio 20.9 H, Glucose 213 H, Calcium 8.5 09/09/20 11:46: POC Glucose 125 H 09/09/20 16:25: POC Glucose 124 H 09/09/20 20:53: POC Glucose 113 H 09/10/20 05:30: WBC 8.1, RBC 3.27 L, Hgb 9.6 L, Hct 29.8 L, MCV 91.1, MCH 29.4, MCHC 32.2, RDW Std Deviation 43.6, RDW Coeff of Fior 13.2, Plt Count 311, MPV 10.2, Immature Gran % (Auto) 0.200, Neut % (Auto) 70.5 H, Lymph % (Auto) 19.4, [place] % (Auto) 6.2, Eos % (Auto) 3.3, Baso % (Auto) 0.4, Absolute Neuts (auto) 5.7, Absolute Lymphs (auto) 1.57, Nucleated RBC % 0 09/10/20 05:30: Sodium 138, Potassium 5.2 H, Chloride 109 H, Carbon Dioxide 25.0, Anion Gap 4 L, BUN 36 H, Creatinine 1.71 H, Estim Creat Clear Calc 34.80, Est GFR (MDRD) Af Amer 40 L, Est GFR (MDRD) Non-Af 33 L, BUN/Creatinine Ratio 21.1 H, Glucose 225 H, Calcium 9.0 Current Medications Acetaminophen (Acetaminophen 325 Mg Tablet) 650 mg PO Q6H PRN PRN PRN Reason: Pain Score 1-10/Temp > 100.7 F Last Admin: 09/09/20 21:00 Dose: 650 mg Documented by: Al Hydroxide/Mg Hydroxide (Mag Hydrox/Al Hydrox/Simeth 30 Ml Udc) 30 ml PO Q6H PRN PRN PRN Reason: Gastric Burning Albuterol Sulfate (Albuterol 2.5 Mg/3 Ml Vial.Neb.) 2.5 mg INHALATION Q2H PRN PRN PRN Reason: Dyspnea, wheezing Aspirin (Aspirin E.C. 81 Mg Tablet) 81 mg PO DAILY@0800 [facility] Last Admin: 09/09/20 08:35 Dose: 81 mg Documented by: Atorvastatin Calcium (Atorvastatin Calcium 80 Mg Tablet) 80 mg PO QHS [facility] Last Admin: 09/09/20 20:59 Dose: 80 mg Documented by: Diphenhydramine HCl (Diphenhydramine 50 Mg/Ml Syringe) 25 mg IV Q6H PRN PRN PRN Reason: ITCHING Gabapentin (Gabapentin 300 Mg Capsule) 900 mg PO TIDCM [facility] Last Admin: 09/09/20 17:22 Dose: 900 mg Documented by: Guaifenesin (Guaifenesin 10 Ml Udc (200mg/10ml)) 20 ml PO Q4H PRN PRN PRN Reason: COUGH Hydralazine HCl (Hydralazine 20 Mg/Ml Vial) 10 mg IV Q4H PRN PRN PRN Reason: SBP > 160 Last Admin: 09/05/20 09:16 Dose: 10 mg Documented by: Sodium Chloride () 250 mls @ 15 mls/hr IV .[id number] PRN PRN Reason: Saline Flush Last Infusion: 09/06/20 02:42 Dose: 0 mls/hr Documented by: Sodium Chloride () 250 mls @ 15 mls/hr IV .[id number] PRN PRN Reason: Additional IVPB Infusion Sodium Chloride () 250 mls @ 15 mls/hr IV .[id number] PRN PRN Reason: Saline Flush Sodium Chloride () 250 mls @ 15 mls/hr IV .[id number] PRN PRN Reason: Additional IVPB Infusion Insulin Glargine (Insulin Glargine 100 Units/Ml Pen) 22 units SC BID [facility] Last Admin: 09/09/20 21:00 Dose: Not Given Documented by: Insulin Human Lispro (Insulin Lispro 100 Unit/Ml Insuln.Pen) 0 unit SC ACHS [facility]; Protocol Last Admin: 09/09/20 20:59 Dose: Not Given Documented by: Insulin Human Lispro (Insulin Lispro 100 Unit/Ml Insuln.Pen) 10 unit SC TIDCM [facility] Last Admin: 09/09/20 17:21 Dose: 10 u Documented by: Isosorbide Mononitrate (Isosorbide Mononitrate 30 Mg Tablet) 30 mg PO DAILY [facility] Last Admin: 09/09/20 08:36 Dose: 30 mg Documented by: Magnesium Hydroxide (Magnesium Hydroxide 30 Ml Udc) 30 ml PO DAILY PRN PRN PRN Reason: Constipation Melatonin (Melatonin 3 Mg Tablet) 3 mg PO QHS PRN PRN PRN Reason: INSOMNIA Nitroglycerin (Nitroglycerin (Inpatient Use) 0.4 Mg Tab.Subl) 0.4 mg SUBLINGUAL Q5M PRN PRN Reason: CARDIAC/CHEST PAIN Ondansetron HCl (Ondansetron 4 Mg/2 Ml Vial) 4 mg IV Q8H PRN PRN PRN Reason: NAUSEA/VOMITING Last Admin: 09/04/20 23:40 Dose: 4 mg Documented by: Oxycodone HCl (Oxycodone 5 Mg Tablet) 5 mg PO Q4H PRN PRN PRN Reason: Pain Score 4-5 Last Admin: 09/09/20 21:00 Dose: 5 mg Documented by: Oxycodone HCl (Oxycodone 5 Mg Tablet) 10 mg PO Q4H PRN PRN PRN Reason: Pain Score 6-10 Last Admin: 09/09/20 08:35 Dose: 10 mg Documented by: Pantoprazole Sodium (Pantoprazole Sodium 40 Mg Tablet) 40 mg PO DAILY [facility] Last Admin: 09/09/20 08:35 Dose: 40 mg Documented by: Paroxetine HCl (Paroxetine 20 Mg Tablet) 20 mg PO QHS [facility] Last Admin: 09/09/20 21:00 Dose: 20 mg Documented by: Polysaccharide Iron Complex (Iron Polysaccharide Complex 150 [facility]ule) [facility] Last Admin: 09/09/20 08:35 Dose: 150 mg Documented by: Pramipexole Dihydrochloride (Pramipexole Di-Hcl 1 Mg Tablet) 3 mg PO QHS [facility] Last Admin: 09/09/20 20:59 Dose: 3 mg Documented by: Prochlorperazine Edisylate (Prochlorperazine 10 Mg/2 Ml Vial) 5 mg IV Q4H PRN PRN PRN Reason: Breakthrough Nausea/Vomiting Psyllium Hydrophilic Mucilloid (Psyllium 1 Packet) 1 packet PO DAILY PRN PRN PRN Reason: Constipation Senna/Docusate Sodium (Senna/Docusate Sodium 1 Tablet) 2 tablet PO BID PRN PRN PRN Reason: Constipation Last Admin: 09/09/20 08:43 Dose: 2 tablet Documented by: Sodium Chloride (0.9% Saline Lock 10 Ml Syringe) 10 - 40 ml IV UD PRN PRN Reason: SALINE FLUSH Last Admin: 09/09/20 01:37 Dose: 10 ml Documented by: Sodium Chloride (0.9% Saline Lock 10 Ml Syringe) 10 - 40 ml IV UD PRN PRN Reason: SALINE FLUSH Last Admin: 09/09/20 12:00 Dose: 10 ml Documented by: Throat Lozenges (Benzocaine/Menthol 1 Lozenge) 1 lozenge MUCOUS MEM Q2H PRN PRN PRN Reason: SORE THROAT Trimethoprim/Sulfamethoxazole (Smz/Tmp Ds Tablet) [facility] Last Admin: 09/09/20 17:22 Dose: 1 tablet Documented by: Zolpidem Tartrate (Zolpidem Tartrate 5 Mg Tablet) 5 mg PO QHS [facility] Last Admin: 09/09/20 20:59 Dose: 5 mg Documented by: Medical Necessity - Tobacco Use Smoking Status: Never smoker Tobacco Use: Non-smoker Assessment/Plan All Active Problems (This Medical Record has been edited. Action required.) Diabetic infection of left foot (Acute) Chest pain (Acute) NSTEMI (non-ST elevated myocardial infarction) (Resolved 09/20/18) History of coronary artery stent placement (Resolved 09/21/18) Abscess of left foot (Resolved) Cellulitis of left foot (Resolved) Chest pain (Resolved) Diabetic foot infection (Resolved) Diarrhea (Resolved) Enteritis, Yersinia enterocolitica (Resolved) Hyperglycemia (Resolved) Intractable nausea and vomiting (Resolved) Malnutrition (Resolved) Necrotizing soft tissue infection (Resolved) Severe sepsis (Resolved) Left plantar foot ulceration down to fascia layer now s/p debridement (day #2, Dr. 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 Hemoglobin level remained stable. Culture reviewed: multiple organisms noted, staph aureus, Enterobacter, and staph hemolyticus - pt on oral Bactrim. The patient was reassured there were no local signs of infection appreciated with the dressing change yesterday. Her dressing was kept intact today and this will be performed tomorrow morning. To maintain strict non weightbearing status. I recommend improved hemostasis prior to wound vac application. To elevate the limb. Medical management and dvt prophylaxis per primary team is appreciated. Podiatry will continue to follow closely. After discharge, I recommend she follows up at the wound healing center. Please call if questions. Discharge planning: patient will need to be strict nonweightbearing left foot - per PT patient did well with nonweightbearing, also will need close wound care to foot by nursing. We discussed possible d/c home, however patient will need home nursing daily dressing changes or wound vac once her hemostasis is fully controlled. I recommend intermediate facility placement because she will have more help in this setting. Lavern Edgar DPM, [facility] [phone]
[2020-09-10] MEDS: Gabapentin 300 MG Capsule 900 MG PO ×3 (08:09→16:56)
[2020-09-10] MEDS: Senna/Docusate Sodium 1 Tablet 2 TABLET PO (08:09)
[2020-09-10] MEDS: Aspirin E.C. 81 MG Tablet PO (08:09)
[2020-09-10] MEDS: oxyCODONE 5 MG Tablet 10 MG PO (08:09)
[2020-09-10] MEDS: Smz/Tmp Ds Tablet 1 TABLET PO ×2 (08:09→16:56)
[2020-09-10] MEDS: Pantoprazole Sodium 40 MG Tablet PO (08:09)
[2020-09-10] MEDS: Isosorbide Mononitrate 30 MG Tablet PO (08:09)
[2020-09-10] MEDS: Magnesium Hydroxide 30 ML UDC PO (08:09)
[2020-09-10] MEDS: Insulin Lispro 100 UNIT/ML INSULN.PEN 10 UNIT SC ×2 (08:10→11:15)
[2020-09-10] MEDS: Iron Polysaccharide Complex 150 MG CAPSULE PO (08:10)
[2020-09-10] MEDS: Insulin Lispro 100 UNIT/ML INSULN.PEN SC ×4 (08:10→22:25)
[2020-09-10 08:21] LABS: Bedside Glucose 226 mg/dL (70-110)
--- NOTE | 2020-09-10 11:01 | CASEMGMT ---
KELSIE IRELAND NOTE: Spoke w/[facility]. They were made aware d/c plan is still undecided and pt may need SNF @ d/c. They were made aware, if pt does return home, she will need HHC for wound vac management/drsg changes. KELSIE IRELAND to notify [facility] once d/c plan is determined. Delta MANLEY RN CM
--- NOTE | 2020-09-10 11:08 | CASEMGMT ---
LUCRETIA spoke with patient again this am. [facility] told [facility] so [facility] would not be able to take her. LUCRETIA asked if she would like SW to diesel powerplant mechanic helper her a list of other facilities that are in network. She asked, Are they making me go to a fci? LUCRETIA told her it is being recommended, but we cannot make her go. She said if she can't go to [facility] she wants to go to her daughters home. She said once she gets in her daughter's home she will be on 1 level. Home health can come out and change her wound vac 3 times a week. LUCRETIA told her that is true, but therapy is concerned about her ability to go up the steps at her daughter's home. LUCRETIA also told her Dr Edgar is recommending she go to a long term facility. She said she prefers to go home to her daughters. Kamilla SALAZAR
[2020-09-10 11:20] LABS: Bedside Glucose 267 mg/dL (70-110)
--- NOTE | 2020-09-10 15:25 | PCM.PN.HOSP ---
Patient Problems: Active and Suspected Problems (This Medical Record has been edited. Action required.) Diabetic infection of left foot (Acute) Chest pain (Acute) Reason for Visit: Follow-up for left foot plantar ulcer. Her eye symptoms which is chronic. Objective: Discussed with the nursing staff. Patient continues to complain of blurry vision. She added that she has this complaint when she was in [place] and she had injection in her eye probably in vitreous body but did not improve her reason. I informed her that I talked to clerical office worker Dr. Crawford who wants to see her on the day of discharge in the office. She also affirms understanding that because of advanced office set up of ophthalmology especially for retinal exam, it is not possible evaluation while in the hospital. On exam General: Alert, Oriented x3, Cooperative HEENT: Atraumatic, PERRLA, EOMI, Normocephalic. Mild decrease in the peripheral field of vision mainly on the right lateral field of vision, seems chronic. Oral: No Gingival or Mucosal Lesions/ Ulcerations Neck: Supple, No JVD, Negative Carotid Bruits Lungs: Air entry diminished in bilateral lung bases. No crepitation/rhonchi Cardiovascular: Regular rate, Regular Rhythm, Normal S1, Normal S2, No murmurs Abdomen: Bowel Sounds Present, Soft, Non Tender, Non-Distended : No renal angle tenderness. No suprapubic tenderness. Extremities: No edema, Capillary Refill Less than 3 Seconds Skin: Left plantar ulcer in lateral midfoot down to fascia level with nonviable tissue on the base. Status post excisional debridement. no active bleeding. Right ankle ulcers healed. Musculoskeletal: No Tenderness to Palpation of Joints or Extremities. Chronic bilateral ankle and foot Charcot joint Neurological: Cranial nerves II-XII grossly intact, Deep Tendon Reflexes 2+/4 and Symmetrical, Neuro grossly intact Psych/Mental Status: Normal Affect, Appropriate. Vitals/I&O's: Vital Signs Temp Pulse Resp BP Pulse Ox 98.3 F 75 14 137/69 H 95 09/10/20 11:10 09/10/20 11:10 09/10/20 11:10 09/10/20 11:10 09/10/20 14:11 Oxygen Flow Rate (L/min) 2 Oxygen Delivery Method Room Air Weight: 203 lb 14.841 oz Body Mass Index (BMI) 32.1 Finger Stick Blood Glucose 95 Intake and Output for Last 24 Hours 09/08/20 09/09/20 09/10/20 23:59 23:59 23:59 Intake Total 240 / 390 2110 / 2110 400 / 400 Output Total 700 / 1100 900 / 900 800 / 800 Balance -460 / -710 1210 / 1210 -400 / -400 Laboratory Results 09/09/20 16:25: POC Glucose 124 H 09/09/20 20:53: POC Glucose 113 H 09/10/20 05:30: WBC 8.1, RBC 3.27 L, Hgb 9.6 L, Hct 29.8 L, MCV 91.1, MCH 29.4, MCHC 32.2, RDW Std Deviation 43.6, RDW Coeff of Fior 13.2, Plt Count 311, MPV 10.2, Immature Gran % (Auto) 0.200, Neut % (Auto) 70.5 H, Lymph % (Auto) 19.4, Anderson % (Auto) 6.2, Eos % (Auto) 3.3, Baso % (Auto) 0.4, Absolute Neuts (auto) 5.7, Absolute Lymphs (auto) 1.57, Nucleated RBC % 0 09/10/20 05:30: Sodium 138, Potassium 5.2 H, Chloride 109 H, Carbon Dioxide 25.0, Anion Gap 4 L, BUN 36 H, Creatinine 1.71 H, Estim Creat Clear Calc 34.80, Est GFR (MDRD) Af Amer 40 L, Est GFR (MDRD) Non-Af 33 L, BUN/Creatinine Ratio 21.1 H, Glucose 225 H, Calcium 9.0 09/10/20 08:09: POC Glucose 226 H 09/10/20 11:14: POC Glucose 267 H Current Medications Acetaminophen (Acetaminophen 325 Mg Tablet) 650 mg PO Q6H PRN PRN PRN Reason: Pain Score 1-10/Temp > 100.7 F Last Admin: 09/09/20 21:00 Dose: 650 mg Documented by: Al Hydroxide/Mg Hydroxide (Mag Hydrox/Al Hydrox/Simeth 30 Ml Udc) 30 ml PO Q6H PRN PRN PRN Reason: Gastric Burning Albuterol Sulfate (Albuterol 2.5 Mg/3 Ml Vial.Neb.) 2.5 mg INHALATION Q2H PRN PRN PRN Reason: Dyspnea, wheezing Aspirin (Aspirin E.C. 81 Mg Tablet) 81 mg PO DAILY@0800 [facility] Last Admin: 09/10/20 08:09 Dose: 81 mg Documented by: Atorvastatin Calcium (Atorvastatin Calcium 80 Mg Tablet) 80 mg PO QHS [facility] Last Admin: 09/09/20 20:59 Dose: 80 mg Documented by: Diphenhydramine HCl (Diphenhydramine 50 Mg/Ml Syringe) 25 mg IV Q6H PRN PRN PRN Reason: ITCHING Gabapentin (Gabapentin 300 Mg Capsule) 900 mg PO TIDCM [facility] Last Admin: 09/10/20 11:15 Dose: 900 mg Documented by: Guaifenesin (Guaifenesin 10 Ml Udc (200mg/10ml)) 20 ml PO Q4H PRN PRN PRN Reason: COUGH Hydralazine HCl (Hydralazine 20 Mg/Ml Vial) 10 mg IV Q4H PRN PRN PRN Reason: SBP > 160 Last Admin: 09/05/20 09:16 Dose: 10 mg Documented by: Sodium Chloride () 250 mls @ 15 mls/hr IV .[id number] PRN PRN Reason: Saline Flush Last Infusion: 09/10/20 13:47 Dose: Infused Documented by: Sodium Chloride () 250 mls @ 15 mls/hr IV .[id number] PRN PRN Reason: Additional IVPB Infusion Sodium Chloride () 250 mls @ 15 mls/hr IV .[id number] PRN PRN Reason: Saline Flush Sodium Chloride () 250 mls @ 15 mls/hr IV .[id number] PRN PRN Reason: Additional IVPB Infusion Insulin Glargine (Insulin Glargine 100 Units/Ml Pen) 22 units SC BID [facility] Last Admin: 09/10/20 08:11 Dose: 22 units Documented by: Insulin Human Lispro (Insulin Lispro 100 Unit/Ml Insuln.Pen) 0 unit SC [facility]; Protocol Last Admin: 09/10/20 11:14 Dose: 6 units Documented by: Insulin Human Lispro (Insulin Lispro 100 Unit/Ml Insuln.Pen) 10 unit SC [facility] Last Admin: 09/10/20 11:15 Dose: 10 u Documented by: Isosorbide Mononitrate (Isosorbide Mononitrate 30 Mg Tablet) 30 mg PO DAILY [facility] Last Admin: 09/10/20 08:09 Dose: 30 mg Documented by: Magnesium Hydroxide (Magnesium Hydroxide 30 Ml Udc) 30 ml PO DAILY PRN PRN PRN Reason: Constipation Last Admin: 09/10/20 08:09 Dose: 30 ml Documented by: Melatonin (Melatonin 3 Mg Tablet) 3 mg PO QHS PRN PRN PRN Reason: INSOMNIA Nitroglycerin (Nitroglycerin (Inpatient Use) 0.4 Mg Tab.Subl) 0.4 mg SUBLINGUAL Q5M PRN PRN Reason: CARDIAC/CHEST PAIN Ondansetron HCl (Ondansetron 4 Mg/2 Ml Vial) 4 mg IV Q8H PRN PRN PRN Reason: NAUSEA/VOMITING Last Admin: 09/04/20 23:40 Dose: 4 mg Documented by: Oxycodone HCl (Oxycodone 5 Mg Tablet) 5 mg PO Q4H PRN PRN PRN Reason: Pain Score 4-5 Last Admin: 09/09/20 21:00 Dose: 5 mg Documented by: Oxycodone HCl (Oxycodone 5 Mg Tablet) 10 mg PO Q4H PRN PRN PRN Reason: Pain Score 6-10 Last Admin: 09/10/20 08:09 Dose: 10 mg Documented by: Pantoprazole Sodium (Pantoprazole Sodium 40 Mg Tablet) 40 mg PO DAILY [facility] Last Admin: 09/10/20 08:09 Dose: 40 mg Documented by: Paroxetine HCl (Paroxetine 20 Mg Tablet) 20 mg PO QHS [facility] Last Admin: 09/09/20 21:00 Dose: 20 mg Documented by: Polysaccharide Iron Complex (Iron Polysaccharide Complex 150 Mg [facility]apsule) [facility] Last Admin: 09/10/20 08:10 Dose: 150 mg Documented by: Pramipexole Dihydrochloride (Pramipexole Di-Hcl 1 Mg Tablet) 3 mg PO QHS [facility] Last Admin: 09/09/20 20:59 Dose: 3 mg Documented by: Prochlorperazine Edisylate (Prochlorperazine 10 Mg/2 Ml Vial) 5 mg IV Q4H PRN PRN PRN Reason: Breakthrough Nausea/Vomiting Psyllium Hydrophilic Mucilloid (Psyllium 1 Packet) 1 packet PO DAILY PRN PRN PRN Reason: Constipation Senna/Docusate Sodium (Senna/Docusate Sodium 1 Tablet) 2 tablet PO BID PRN PRN PRN Reason: Constipation Last Admin: 09/10/20 08:09 Dose: 2 tablet Documented by: Sodium Chloride (0.9% Saline Lock 10 Ml Syringe) 10 - 40 ml IV UD PRN PRN Reason: SALINE FLUSH Last Admin: 09/09/20 01:37 Dose: 10 ml Documented by: Sodium Chloride (0.9% Saline Lock 10 Ml Syringe) 10 - 40 ml IV UD PRN PRN Reason: SALINE FLUSH Last Admin: 09/09/20 12:00 Dose: 10 ml Documented by: Throat Lozenges (Benzocaine/Menthol 1 Lozenge) 1 lozenge MUCOUS MEM Q2H PRN PRN PRN Reason: SORE THROAT Trimethoprim/Sulfamethoxazole (Smz/Tmp Ds Tablet) 1 tablet PO BIDCM [facility] Last Admin: 09/10/20 08:09 Dose: 1 tablet Documented by: Zolpidem Tartrate (Zolpidem Tartrate 5 Mg Tablet) 5 mg PO QHS [facility] Last Admin: 09/09/20 20:59 Dose: 5 mg Documented by: STROKE Vital Signs/Narrative: Vital Signs Pulse Ox 09/10/20 14:11 95 Medical Necessity - Tobacco Use Smoking Status: Never smoker Tobacco Use: Non-smoker Assessment/Plan All Active Problems (This Medical Record has been edited. Action required.) Diabetic infection of left foot (Acute) Chest pain (Acute) NSTEMI (non-ST elevated myocardial infarction) (Resolved 09/20/18) History of coronary artery stent placement (Resolved 09/21/18) Abscess of left foot (Resolved) Cellulitis of left foot (Resolved) Chest pain (Resolved) Diabetic foot infection (Resolved) Diarrhea (Resolved) Enteritis, Yersinia enterocolitica (Resolved) Hyperglycemia (Resolved) Intractable nausea and vomiting (Resolved) Malnutrition (Resolved) Necrotizing soft tissue infection (Resolved) Severe sepsis (Resolved) This is a 55-year-old female with multiple comorbidities including uncontrolled diabetes mellitus type 2 with diabetic neuropathy and Charcot's foot was admitted with left-sided chest pain. She also has chronic left plantar foot ulcer for 3 months. 1. chest pain: Resolved. Stress test negative. Possible costochondritis. CTA negative for pneumonia and pulmonary embolism. On PPI. GI follow-up as an outpatient. 2. Left foot diabetic infected ulcer: Patient had debridement on 09/02 complicated by bleeding. MRI did not show acute osteomyelitis.Cultures growing out Enterobacter, S. aureas and S. haemolyticus. Started trimethoprim/sulfamethoxazole 09/05. Patient further had debridement of left foot ulceration down to the fascial level. Tissue sent to pathology. May need wound VAC. 09/09: There was bleeding after surgery from the left foot. Bleeding is controlled. No major drop in H&H from 9.5-9.1. 09/10: Bleeding is controlled. H&H is stable. Patient wants to go home but was advised SNF as she will have more help with dressing and movement. Nonweightbearing left foot. 3. Acute blood loss anemia due to wound debridement secondary to left diabetic plantar ulcer: Dropped to 6.7/. Had 2 units of PRBC transfusion. 4. LLE edema: improved per patient. Duplex negative. Concern for DVT as pt recently came back from [place]. Arterial study shows normal bilateral lower extremity resting RALPH and triphasic waveforms 09/01/2020.. Right RALPH 1.28. Left RAPLH 1.3. 5. DM2, uncontrolled, complicated with diabetic neuropathy, Charcot's and probably diabetic retinopathy: A1c 9.8. On glargine and SSI log with meals. Glucose is running 103 and 95 today. Accu-Cheks in 100s yesterday. Insulin glargine decreased to 22 units of cutaneous twice daily and lispro 10 units of units 3 times daily with meals. Continue Accu-Cheks with coverage insulin. 09/09: Patient complain of blurry vision for 3 days but she told today and Dots and blots, I talked to the clerical office worker Dr. Crawford. He did not find any previous records in his office. He further agreed to see the patient on the same day of discharge and easy to examine and complete evaluation in the office as they have ophthalmology equipments. We both agree. Blood sugars are reasonably well controlled. 09/10: Blood sugar is elevated 226 and 267. Glucose in BMP 225. Dose dose of Humalog and Lantus was cautiously increased with holding parameters as patient had low blood sugar 2 days ago. 6. VTE prophylaxis: SCDs. hold enoxaparin given anemia. 7. Disposition: digital production manager and physical therapist working on it. Laboratory Results 09/09/20 16:25: POC Glucose 124 H 09/09/20 20:53: POC Glucose 113 H 09/10/20 05:30: WBC 8.1, RBC 3.27 L, Hgb 9.6 L, Hct 29.8 L, MCV 91.1, MCH 29.4, MCHC 32.2, RDW Std Deviation 43.6, RDW Coeff of Fior 13.2, Plt Count 311, MPV 10.2, Immature Gran % (Auto) 0.200, Neut % (Auto) 70.5 H, Lymph % (Auto) 19.4, Anderson % (Auto) 6.2, Eos % (Auto) 3.3, Baso % (Auto) 0.4, Absolute Neuts (auto) 5.7, Absolute Lymphs (auto) 1.57, Nucleated RBC % 0 09/10/20 05:30: Sodium 138, Potassium 5.2 H, Chloride 109 H, Carbon Dioxide 25.0, Anion Gap 4 L, BUN 36 H, Creatinine 1.71 H, Estim Creat Clear Calc 34.80, Est GFR (MDRD) Af Amer 40 L, Est GFR (MDRD) Non-Af 33 L, BUN/Creatinine Ratio 21.1 H, Glucose 225 H, Calcium 9.0 09/10/20 08:09: POC Glucose 226 H 09/10/20 11:14: POC Glucose 267 H Clinical Impression(s) from Imaging Studies Chest X-Ray 08/31/20 18:46 IMPRESSION: Nonacute portable x-ray examination of the chest. Electronically Signed: Shan Cadet MD ([place]) at 19:08 EST , Service support , Chest CTA 08/31/20 19:17 IMPRESSION: 1. No pulmonary embolism 2. No acute chest findings. Electronically Signed: Janessa Baca at 20:03 EST Tel , Service support , Foot X-Ray 08/31/20 21:05 IMPRESSION: Status post resection of the fifth toe proximal shaft of the fifth metatarsal. Cannot definitively exclude early changes of acute osteomyelitis at the operative site. Clinical correlation recommended Electronically Signed: Jefe Cesar MD at 22:02 EST , Service support , Lower Extremity MRI 09/01/20 12:38 IMPRESSION: 1. Large 5.81 x 1.70 cm open skin defect/wound on the lateral plantar aspect of the foot contains fluid and debris and can be a infected. The investing fascia and the plantar aspect of the foot beneath the fourth metatarsal bone encloses the complex fluid collection, and there is no demonstrated intramuscular extension or contact with the overlying bony structures. 2. Mild cortical irregularity is present at the base and plantar and lateral aspect of the fifth metatarsal bone and cuboid which could be related to prior infection or sequela from previous trauma. 3. No active bone marrow edema or cortical erosion is seen to suggest active osteomyelitis. Electronically Signed: Noel De Jesus MD at 20:36 EST , Service support , Inpatient E&M: [id number] Subs Hosp L2
--- NOTE | 2020-09-10 15:35 | CASEMGMT ---
SW spoke with patient again this afternoon and told her the physicians and therapy are really recommending she go to a alf facility at discharge. SW gave her a list of facilities that are in network with her insurance and told her to look over the list. Kamilla MCCORD MSW
[2020-09-10] MEDS: Insulin Lispro 100 UNIT/ML INSULN.PEN 15 UNIT SC (16:58)
[2020-09-10] MEDS: oxyCODONE 5 MG Tablet PO ×2 (17:00→22:27)
[2020-09-10 17:05] LABS: Bedside Glucose 213 mg/dL (70-110)
[2020-09-10] MEDS: Acetaminophen 325 MG Tablet 650 MG PO (22:26)
[2020-09-10] MEDS: Atorvastatin Calcium 80 MG Tablet PO (22:28)
[2020-09-10] MEDS: Paroxetine 20 MG Tablet PO (22:29)
[2020-09-10] MEDS: Pramipexole Di-HCl 1 MG Tablet 3 MG PO (22:30)
[2020-09-10] MEDS: Zolpidem Tartrate 5 MG Tablet PO (22:33)
[2020-09-11 00:55] LABS: Bedside Glucose 177 mg/dL (70-110)
[2020-09-11 05:42] VITALS: BP 140/75; PULSE 81; RESP 16; TEMP 36.9; O2SAT 86
[2020-09-11] MEDS: Insulin Lispro 100 UNIT/ML INSULN.PEN SC ×4 (06:27→21:31)
--- NOTE | 2020-09-11 06:27 | PCM.PROGNOTE ---
Patient Problems: Active and Suspected Problems (This Medical Record has been edited. Action required.) Diabetic infection of left foot (Acute) Chest pain (Acute) Subjective: This 55-year-old female with multiple comorbidities was seen bedside postoperative day #3 left foot debridement for treatment of infected chronic nonhealing wound. She denies fever, chill, nausea, vomiting, loss of appetite, chest pain or shortness of breath. She denies pain this morning. - Physical Exam Vitals/I&O's: Vital Signs Temp Pulse Resp BP Pulse Ox 98.4 F 81 16 140/75 H 86 09/11/20 05:42 09/11/20 05:42 09/11/20 05:42 09/11/20 05:42 09/11/20 05:42 Oxygen Flow Rate (L/min) 2 Oxygen Delivery Method Room Air Weight: 92.5 kg Body Mass Index (BMI) 32.1 Finger Stick Blood Glucose 95 Intake and Output for Last 24 Hours 09/09/20 09/10/20 09/11/20 23:59 23:59 23:59 Intake Total 2110 / 2110 1000 / 1200 200 / 200 Output Total 900 / 900 800 / 800 500 / 500 Balance 1210 / 1210 200 / 400 -300 / -300 General: Alert, Oriented x3, Cooperative HEENT: Atraumatic Extremities: No cyanosis, Capillary Refill Less than 3 Seconds, No Calf Tenderness, Edema - Decreased Skin: Ulcer/ Wound - No purulence, erythema, streaking, odor, necrosis or active bleeding. Adjacent skin is atrophic and hairless. The wound bed is granular and fibrous and there is some incorporating Gelfoam noted Musculoskeletal: No Tenderness to Palpation of Joints or Extremities, Muscle Wasting, - - Compartments of the surgical limb remain soft without bogginess or fluctuance Neurological: - - Lack of normal epicritic sensation light touch is consistent with neuropathy status Psych/Mental Status: Normal Affect, Appropriate Laboratory Results 09/10/20 08:09: POC Glucose 226 H 09/10/20 11:14: POC Glucose 267 H 09/10/20 16:55: POC Glucose 213 H 09/10/20 22:23: POC Glucose 177 H Current Medications Acetaminophen (Acetaminophen 325 Mg Tablet) 650 mg PO Q6H PRN PRN PRN Reason: Pain Score 1-10/Temp > 100.7 F Last Admin: 09/10/20 22:26 Dose: 650 mg Documented by: Al Hydroxide/Mg Hydroxide (Mag Hydrox/Al Hydrox/Simeth 30 Ml Udc) 30 ml PO Q6H PRN PRN PRN Reason: Gastric Burning Albuterol Sulfate (Albuterol 2.5 Mg/3 Ml Vial.Neb.) 2.5 mg INHALATION Q2H PRN PRN PRN Reason: Dyspnea, wheezing Aspirin (Aspirin E.C. 81 Mg Tablet) 81 mg PO DAILY@0800 [facility] Last Admin: 09/10/20 08:09 Dose: 81 mg Documented by: Atorvastatin Calcium (Atorvastatin Calcium 80 Mg Tablet) 80 mg PO QHS [facility] Last Admin: 09/10/20 22:28 Dose: 80 mg Documented by: Diphenhydramine HCl (Diphenhydramine 50 Mg/Ml Syringe) 25 mg IV Q6H PRN PRN PRN Reason: ITCHING Gabapentin (Gabapentin 300 Mg Capsule) 900 mg PO TIDCM [facility] Last Admin: 09/10/20 16:56 Dose: 900 mg Documented by: Guaifenesin (Guaifenesin 10 Ml Udc (200mg/10ml)) 20 ml PO Q4H PRN PRN PRN Reason: COUGH Hydralazine HCl (Hydralazine 20 Mg/Ml Vial) 10 mg IV Q4H PRN PRN PRN Reason: SBP > 160 Last Admin: 09/05/20 09:16 Dose: 10 mg Documented by: Sodium Chloride () 250 mls @ 15 mls/hr IV .[id number] PRN PRN Reason: Saline Flush Last Infusion: 09/10/20 13:47 Dose: Infused Documented by: Sodium Chloride () 250 mls @ 15 mls/hr IV .[id number] PRN PRN Reason: Additional IVPB Infusion Sodium Chloride () 250 mls @ 15 mls/hr IV .[id number] PRN PRN Reason: Saline Flush Sodium Chloride () 250 mls @ 15 mls/hr IV .[id number] PRN PRN Reason: Additional IVPB Infusion Insulin Glargine (Insulin Glargine 100 Units/Ml Pen) 27 units SC BID [facility] Last Admin: 09/10/20 22:25 Dose: 27 u Documented by: Insulin Human Lispro (Insulin Lispro 100 Unit/Ml Insuln.Pen) 0 unit SC [facility]; Protocol Last Admin: 09/10/20 22:25 Dose: 2 units Documented by: Insulin Human Lispro (Insulin Lispro 100 Unit/Ml Insuln.Pen) 15 unit SC TIDCM [facility] Last Admin: 09/10/20 16:58 Dose: 15 u Documented by: Isosorbide Mononitrate (Isosorbide Mononitrate 30 Mg Tablet) 30 mg PO DAILY [facility] Last Admin: 09/10/20 08:09 Dose: 30 mg Documented by: Magnesium Hydroxide (Magnesium Hydroxide 30 Ml Udc) 30 ml PO DAILY PRN PRN PRN Reason: Constipation Last Admin: 09/10/20 08:09 Dose: 30 ml Documented by: Melatonin (Melatonin 3 Mg Tablet) 3 mg PO QHS PRN PRN PRN Reason: INSOMNIA Nitroglycerin (Nitroglycerin (Inpatient Use) 0.4 Mg Tab.Subl) 0.4 mg SUBLINGUAL Q5M PRN PRN Reason: CARDIAC/CHEST PAIN Ondansetron HCl (Ondansetron 4 Mg/2 Ml Vial) 4 mg IV Q8H PRN PRN PRN Reason: NAUSEA/VOMITING Last Admin: 09/04/20 23:40 Dose: 4 mg Documented by: Oxycodone HCl (Oxycodone 5 Mg Tablet) 5 mg PO Q4H PRN PRN PRN Reason: Pain Score 4-5 Last Admin: 09/10/20 22:27 Dose: 5 mg Documented by: Oxycodone HCl (Oxycodone 5 Mg Tablet) 10 mg PO Q4H PRN PRN PRN Reason: Pain Score 6-10 Last Admin: 09/10/20 08:09 Dose: 10 mg Documented by: Pantoprazole Sodium (Pantoprazole Sodium 40 Mg Tablet) 40 mg PO DAILY [facility] Last Admin: 09/10/20 08:09 Dose: 40 mg Documented by: Paroxetine HCl (Paroxetine 20 Mg Tablet) 20 mg PO QHS [facility] Last Admin: 09/10/20 22:29 Dose: 20 mg Documented by: Polysaccharide Iron Complex (Iron Polysaccharide Complex 150 Mg Capsule) [facility] Last Admin: 09/10/20 08:10 Dose: 150 mg Documented by: Pramipexole Dihydrochloride (Pramipexole Di-Hcl 1 Mg Tablet) 3 mg PO QHS [facility] Last Admin: 09/10/20 22:30 Dose: 3 mg Documented by: Prochlorperazine Edisylate (Prochlorperazine 10 Mg/2 Ml Vial) 5 mg IV Q4H PRN PRN PRN Reason: Breakthrough Nausea/Vomiting Psyllium Hydrophilic Mucilloid (Psyllium 1 Packet) 1 packet PO DAILY PRN PRN PRN Reason: Constipation Senna/Docusate Sodium (Senna/Docusate Sodium 1 Tablet) 2 tablet PO BID PRN PRN PRN Reason: Constipation Last Admin: 09/10/20 08:09 Dose: 2 tablet Documented by: Sodium Chloride (0.9% Saline Lock 10 Ml Syringe) 10 - 40 ml IV UD PRN PRN Reason: SALINE FLUSH Last Admin: 09/09/20 01:37 Dose: 10 ml Documented by: Sodium Chloride (0.9% Saline Lock 10 Ml Syringe) 10 - 40 ml IV UD PRN PRN Reason: SALINE FLUSH Last Admin: 09/09/20 12:00 Dose: 10 ml Documented by: Throat Lozenges (Benzocaine/Menthol 1 Lozenge) 1 lozenge MUCOUS MEM Q2H PRN PRN PRN Reason: SORE THROAT Trimethoprim/Sulfamethoxazole (Smz/Tmp Ds Tablet) 1 tablet PO BIDCM [facility] Last Admin: 09/10/20 16:56 Dose: 1 tablet Documented by: Zolpidem Tartrate (Zolpidem Tartrate 5 Mg Tablet) 5 mg PO QHS [facility] Last Admin: 09/10/20 22:33 Dose: 5 mg Documented by: Medical Necessity - Tobacco Use Smoking Status: Never smoker Tobacco Use: Non-smoker Assessment/Plan All Active Problems (This Medical Record has been edited. Action required.) Diabetic infection of left foot (Acute) Chest pain (Acute) NSTEMI (non-ST elevated myocardial infarction) (Resolved 09/20/18) History of coronary artery stent placement (Resolved 09/21/18) Abscess of left foot (Resolved) Cellulitis of left foot (Resolved) Chest pain (Resolved) Diabetic foot infection (Resolved) Diarrhea (Resolved) Enteritis, Yersinia enterocolitica (Resolved) Hyperglycemia (Resolved) Intractable nausea and vomiting (Resolved) Malnutrition (Resolved) Necrotizing soft tissue infection (Resolved) Severe sepsis (Resolved) Left plantar foot ulceration down to fascia layer now s/p debridement 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 Hemoglobin level remained stable. Culture reviewed: multiple organisms noted, staph aureus, Enterobacter, and staph hemolyticus - pt on oral Bactrim. The patient was reassured there were no local signs of infection. The wound debridement site was evaluated today and appears stable and ready for wound VAC application. This was discussed with the physician coding specialist nurse who will apply a wound VAC up to 150 mmHg continuous later today. To maintain strict non weightbearing status. To elevate the limb. Medical management and dvt prophylaxis per primary team is appreciated. Podiatry will continue to follow closely. [facility] facility placement is recommended and this process is still pending. After discharge, I recommend she follows up at the wound healing center. Please call if questions. Lavern Edgar DPM, [facility] [phone]
[2020-09-11 06:50] LABS: Absolute Lymphocyte Count 1.79 X10^3/uL (0.83-4.51); Absolute Neutrophil Count 4.6 X10^3/uL (2.0-7.7); Basophil# 0.04 X10^3/uL; Basophil% 0.6 % (0-1); Eosinophil# 0.22 X10^3/uL; Eosinophils% 3.1 % (0-5); Hematocrit 30.2 % (37-47); Hemoglobin 9.5 g/dL (12.0-15.0); Lymphocyte # 1.79 X10^3/ul (4.0); Lymphocyte % 25.2 % (19-41); Mean Corp Hgb Conc 31.5 g/dL (32-36); Mean Corpuscular Hgb 28.7 pg (27.0-32.0); Mean Corpuscular Volume 91.2 fL (81-99); Mean Platelet Vol. 10.1 fl (6.2-12.0); Monocyte# 0.43 X10^3/uL; NRBC Flagged by Analyzer 0 % (0-5); Neutrophil % 64.7 % (47-70); Platelet Count 305 K/mm3 (150-450); RBC Distribution Width CV 13.2 % (11.6-14.6); RBC Distribution Width SD 43.1 fl (35.1-43.9); Red Blood Count 3.31 M/mm3 (4.2-5.4); White Blood Count 7.1 K/mm3 (4.4-11.0)
[2020-09-11 07:05] LABS: Bedside Glucose 254 mg/dL (70-110)
--- NOTE | 2020-09-11 07:13 | DCINST_ITS ---
Discharge Activity: May Shower - with shower bag, Use Walker Weight Bearing Status: No weight bearing Keep extremity elevated above heart level: Left Leg Call your doctor if your incision/area has: Continuous Slow Oozing, Sudden Increased Bleeding, Increased Pain/ Swelling, Increased Redness, Foul Smelling Discharge Call your doctor if you observe: Fever of 101 or Higher, Calf discomfort, Uncontrolled pain Cleanse incision/area with: Keep Dressing Clean & Dry - change wound vac 150 mmHg continuous three times weekly left foot Allergies/Adverse Reactions: Allergies Penicillins Allergy (Verified 08/31/20 22:02) Shortness of breath vancomycin Allergy (Verified 08/31/20 22:02) Itching metronidazole Adverse Reaction (Verified 08/31/20 22:02) Nausea OXYCONTIN Allergy (Uncoded 08/31/20 22:02) Shortness of breath Medications to take at Discharge Gabapentin [Neurontin] 900 mg PO TIDCM 09/20/18 Calcium Carbonate [Tums] 500 mg PO Q4H PRN PRN 04/02/19 Iron Polysaccharide Complex [Ferrex 150] 150 mg PO DAILYCM #30 cap 05/14/19 Paroxetine [Paxil] 20 mg PO QHS #30 tab 05/14/19 Pramipexole Di-HCl [Mirapex] 1.5 mg PO BID #90 tab 05/14/19 Acetaminophen [Tylenol Tablet] 650 mg PO Q6H PRN PRN #0 tab 06/16/19 Oxycodone HCl/Acetaminophen [Oxycodone-Acetaminophen 5-325] 1 ea PO BID PRN PRN 08/20/19 atorvastatin 80 mg tablet 80 mg PO QHS #90 tab 11/30/19 clopidogrel 75 mg tablet 75 mg PO DAILY #90 tab 11/30/19 isosorbide mononitrate 30 mg tablet,extended release 24 hr 30 mg PO DAILY #90 tab 11/30/19 Insulin Glargine [Lantus SoloStar Pen] 30 units SC BREAKFAST 08/31/20 Insulin Lispro [Humalog KwikPen] 20 unit SC TIDCM 08/31/20 Zolpidem Tartrate [Ambien (Generic)] 5 mg PO QHS PRN PRN 09/01/20 Primary Care Physician: Raúl Eric MD [Primary Care Provider] - Test Results: Test results from this visit will be discussed in further detail at your follow- up appointment, if applicable. Please Follow Up With: Wandy Lam NP, FRONT WINDOW CASHIER-C Please Follow Up With: Clinic,Wound When: 1 week. [facility] sooner if concerns [phone] Proposed Discharge Date: 09/11/20
[2020-09-11 07:16] LABS: Anion Gap 5 (5-15); BUN 40 mg/dL (7-18); Chloride 108 mmol/L (98-107); EST Glomerular Filtration Rate 36 mL/min (>60); Est Glom Filt Rate - Afr Amer 43 mL/min (>60); Estimated Creatinine Clearance 37.19 ml/min; Glucose 272 mg/dL (74-106); Potassium 5.1 mmol/L (3.5-5.1); Sodium Level 136 mmol/L (136-145)
[2020-09-11 08:00] VITALS: BP 146/76; PULSE 76; RESP 18; TEMP 36.7; O2SAT 96
--- NOTE | 2020-09-11 08:30 | CASEMGMT ---
SW spoke with patient and discussed her d/c plan. She said she would go to TCU. She was worried about her eye doctor appt she is supposed to go to. LUCRETIA told her SW will work on this. LUCRETIA called Lauren on the referral line and they can take patient. They will start the pre-cert. LUCRETIA called [facility] and scheduled an appt for patient for 1:50p. They asked that she be there at 1:40. LUCRETIA called [facility] and arranged for patient to get picked up at 12:40 for her appointment. LUCRETIA notified LUCRETIA Thomas in TCU of this appt and slat pickler time. LUCRETIA notified patient as well. Hopefully insurance approves patient and we can get her to TCU before noon tomorrow. Plan: [facility] TCU pending insurance approval. Kamilla MCCORD MSW
[2020-09-11] MEDS: Gabapentin 300 MG Capsule 900 MG PO ×3 (08:59→17:20)
[2020-09-11] MEDS: Iron Polysaccharide Complex 150 MG CAPSULE PO (09:00)
[2020-09-11] MEDS: Isosorbide Mononitrate 30 MG Tablet PO (09:00)
[2020-09-11] MEDS: Smz/Tmp Ds Tablet 1 TABLET PO ×2 (09:00→17:20)
[2020-09-11] MEDS: Pantoprazole Sodium 40 MG Tablet PO (09:00)
[2020-09-11] MEDS: Aspirin E.C. 81 MG Tablet PO (09:00)
[2020-09-11] MEDS: Insulin Lispro 100 UNIT/ML INSULN.PEN 15 UNIT SC ×3 (09:10→17:20)
--- NOTE | 2020-09-11 11:48 | NURSING ---
wound photo: left plantar foot
[2020-09-11 11:50] LABS: Bedside Glucose 171 mg/dL (70-110)
--- NOTE | 2020-09-11 12:52 | CASEMGMT ---
KELSIE IRELAND NOTE: Spoke w/Sarah @ [facility]. She was made aware anticipate pt will discharge to SNF but pre-cert is still pending. [facility] referral not cancelled at this time, as insurance approval for SNF is still pending. KELSIE IRELAND to call [facility] tomorrow w/update. Delta MANLEY RN, CM
[2020-09-11] MEDS: oxyCODONE 5 MG Tablet PO ×2 (13:00→21:43)
--- NOTE | 2020-09-11 15:12 | PN_ITS ---
Patient Problems: Active and Suspected Problems (This Medical Record has been edited. Action required.) Diabetic infection of left foot (Acute) Chest pain (Acute) Reason for Visit: Follow-up for left foot ulcer Objective: Patient heart rate and blood pressure are controlled. Patient agreed for SNF and immigration case manager and social media director applied for pre-CERT. Patient is still complaining of blurry vision more on the right lung field. Physical exam General: Alert, Oriented x3, Cooperative HEENT: Atraumatic, PERRLA, EOMI, Normocephalic. Mild decrease in the peripheral field of vision mainly on the right lateral field of vision, chronic. Oral: No Gingival or Mucosal Lesions/ Ulcerations Neck: Supple, No JVD, Negative Carotid Bruits Lungs: Air entry diminished in bilateral lung bases. No crepitation/rhonchi Cardiovascular: Regular rate, Regular Rhythm, Normal S1, Normal S2, No murmurs Abdomen: Bowel Sounds Present, Soft, Non Tender, Non-Distended : No renal angle tenderness. No suprapubic tenderness. Extremities: No edema, Capillary Refill Less than 3 Seconds Skin: Left plantar ulcer in lateral midfoot down to fascia level with nonviable tissue on the base. Surgical dressing is dry. Right ankle ulcers healed. Musculoskeletal: No Tenderness to Palpation of Joints or Extremities. Chronic bilateral ankle and foot Charcot joint Neurological: Cranial nerves II-XII grossly intact, Deep Tendon Reflexes 2+/4 and Symmetrical, Neuro grossly intact Psych/Mental Status: Normal Affect, Appropriate Vitals/I&O's: Vital Signs Temp Pulse Resp BP Pulse Ox 98.1 F 76 18 146/76 H 96 09/11/20 08:00 09/11/20 08:00 09/11/20 08:00 09/11/20 08:00 09/11/20 08:00 Oxygen Flow Rate (L/min) 2 Oxygen Delivery Method Room Air Weight: 203 lb 0.732 oz Body Mass Index (BMI) 32.1 Finger Stick Blood Glucose 95 Intake and Output for Last 24 Hours 09/09/20 09/10/20 09/11/20 23:59 23:59 23:59 Intake Total 2110 / 2110 1000 / 1200 440 / 440 Output Total 900 / 900 800 / 800 750 / 750 Balance 1210 / 1210 200 / 400 -310 / -310 Laboratory Results 09/10/20 16:55: POC Glucose 213 H 09/10/20 22:23: POC Glucose 177 H 09/11/20 03:54: Sodium 136, Potassium 5.1, Chloride 108 H, Carbon Dioxide 23.0, Anion Gap 5, BUN 40 H, Creatinine 1.60 H, Estim Creat Clear Calc 37.19, Est GFR (MDRD) Af Amer 43 L, Est GFR (MDRD) Non-Af 36 L, BUN/Creatinine Ratio 25.0 H, Glucose 272 H, Calcium 9.0 09/11/20 06:20: POC Glucose 254 H 09/11/20 06:40: WBC 7.1, RBC 3.31 L, Hgb 9.5 L, Hct 30.2 L, MCV 91.2, MCH 28.7, MCHC 31.5 L, RDW Std Deviation 43.1, RDW Coeff of Fior 13.2, Plt Count 305, MPV 10.1, Immature Gran % (Auto) 0.400, Neut % (Auto) 64.7, Lymph % (Auto) 25.2, Yo[place]um % (Auto) 6.0, Eos % (Auto) 3.1, Baso % (Auto) 0.6, Absolute Neuts (auto) 4.6, Absolute Lymphs (auto) 1.79, Nucleated RBC % 0 09/11/20 11:38: POC Glucose 171 H Current Medications Acetaminophen (Acetaminophen 325 Mg Tablet) 650 mg PO Q6H PRN PRN PRN Reason: Pain Score 1-10/Temp > 100.7 F Last Admin: 09/10/20 22:26 Dose: 650 mg Documented by: Al Hydroxide/Mg Hydroxide (Mag Hydrox/Al Hydrox/Simeth 30 Ml Udc) 30 ml PO Q6H PRN PRN PRN Reason: Gastric Burning Albuterol Sulfate (Albuterol 2.5 Mg/3 Ml Vial.Neb.) 2.5 mg INHALATION Q2H PRN PRN PRN Reason: Dyspnea, wheezing Aspirin (Aspirin E.C. 81 Mg Tablet) 81 mg PO DAILY@0800 [facility] Last Admin: 09/11/20 09:00 Dose: 81 mg Documented by: Atorvastatin Calcium (Atorvastatin Calcium 80 Mg Tablet) 80 mg PO QHS [facility] Last Admin: 09/10/20 22:28 Dose: 80 mg Documented by: Diphenhydramine HCl (Diphenhydramine 50 Mg/Ml Syringe) 25 mg IV Q6H PRN PRN PRN Reason: ITCHING Gabapentin (Gabapentin 300 Mg Capsule) 900 mg PO TIDCM [facility] Last Admin: 09/11/20 11:41 Dose: 900 mg Documented by: Guaifenesin (Guaifenesin 10 Ml Udc (200mg/10ml)) 20 ml PO Q4H PRN PRN PRN Reason: COUGH Hydralazine HCl (Hydralazine 20 Mg/Ml Vial) 10 mg IV Q4H PRN PRN PRN Reason: SBP > 160 Last Admin: 09/05/20 09:16 Dose: 10 mg Documented by: Sodium Chloride () 250 mls @ 15 mls/hr IV .[id number] PRN PRN Reason: Saline Flush Last Infusion: 09/10/20 13:47 Dose: Infused Documented by: Sodium Chloride () 250 mls @ 15 mls/hr IV .[id number] PRN PRN Reason: Additional IVPB Infusion Sodium Chloride () 250 mls @ 15 mls/hr IV .[id number] PRN PRN Reason: Saline Flush Sodium Chloride () 250 mls @ 15 mls/hr IV .[id number] PRN PRN Reason: Additional IVPB Infusion Insulin Glargine (Insulin Glargine 100 Units/Ml Pen) 27 units SC BID [facility] Last Admin: 09/11/20 11:41 Dose: 27 u Documented by: Insulin Human Lispro (Insulin Lispro 100 Unit/Ml Insuln.Pen) [facility]; Protocol Last Admin: 09/11/20 11:40 Dose: 2 units Documented by: Insulin Human Lispro (Insulin Lispro 100 Unit/Ml Insuln.Pen) 15 unit SC TIDCM [facility] Last Admin: 09/11/20 11:40 Dose: 15 u Documented by: Isosorbide Mononitrate (Isosorbide Mononitrate 30 Mg Tablet) 30 mg PO DAILY [facility] Last Admin: 09/11/20 09:00 Dose: 30 mg Documented by: Magnesium Hydroxide (Magnesium Hydroxide 30 Ml Udc) 30 ml PO DAILY PRN PRN PRN Reason: Constipation Last Admin: 09/10/20 08:09 Dose: 30 ml Documented by: Melatonin (Melatonin 3 Mg Tablet) 3 mg PO QHS PRN PRN PRN Reason: INSOMNIA Nitroglycerin (Nitroglycerin (Inpatient Use) 0.4 Mg Tab.Subl) 0.4 mg SUBLINGUAL Q5M PRN PRN Reason: CARDIAC/CHEST PAIN Ondansetron HCl (Ondansetron 4 Mg/2 Ml Vial) 4 mg IV Q8H PRN PRN PRN Reason: NAUSEA/VOMITING Last Admin: 09/04/20 23:40 Dose: 4 mg Documented by: Oxycodone HCl (Oxycodone 5 Mg Tablet) 5 mg PO Q4H PRN PRN PRN Reason: Pain Score 4-5 Last Admin: 09/11/20 13:00 Dose: 5 mg Documented by: Oxycodone HCl (Oxycodone 5 Mg Tablet) 10 mg PO Q4H PRN PRN PRN Reason: Pain Score 6-10 Last Admin: 09/10/20 08:09 Dose: 10 mg Documented by: Pantoprazole Sodium (Pantoprazole Sodium 40 Mg Tablet) 40 mg PO DAILY [facility] Last Admin: 09/11/20 09:00 Dose: 40 mg Documented by: Paroxetine HCl (Paroxetine 20 Mg Tablet) 20 mg PO QHS [facility] Last Admin: 09/10/20 22:29 Dose: 20 mg Documented by: Polysaccharide Iron Complex (Iron Polysaccharide Complex 150 Mg Capsule) [facility] Last Admin: 09/11/20 09:00 Dose: 150 mg Documented by: Pramipexole Dihydrochloride (Pramipexole Di-Hcl 1 Mg Tablet) [facility] Last Admin: 09/10/20 22:30 Dose: 3 mg Documented by: Prochlorperazine Edisylate (Prochlorperazine 10 Mg/2 Ml Vial) 5 mg IV Q4H PRN PRN PRN Reason: Breakthrough Nausea/Vomiting Psyllium Hydrophilic Mucilloid (Psyllium 1 Packet) 1 packet PO DAILY PRN PRN PRN Reason: Constipation Senna/Docusate Sodium (Senna/Docusate Sodium 1 Tablet) 2 tablet PO BID PRN PRN PRN Reason: Constipation Last Admin: 09/10/20 08:09 Dose: 2 tablet Documented by: Sodium Chloride (0.9% Saline Lock 10 Ml Syringe) 10 - 40 ml IV UD PRN PRN Reason: SALINE FLUSH Last Admin: 09/09/20 01:37 Dose: 10 ml Documented by: Sodium Chloride (0.9% Saline Lock 10 Ml Syringe) 10 - 40 ml IV UD PRN PRN Reason: SALINE FLUSH Last Admin: 09/09/20 12:00 Dose: 10 ml Documented by: Throat Lozenges (Benzocaine/Menthol 1 Lozenge) 1 lozenge MUCOUS MEM Q2H PRN PRN PRN Reason: SORE THROAT Trimethoprim/Sulfamethoxazole (Smz/Tmp Ds Tablet) [facility] Last Admin: 09/11/20 09:00 Dose: 1 tablet Documented by: Zolpidem Tartrate (Zolpidem Tartrate 5 Mg Tablet) 5 mg PO QHS [facility] Last Admin: 09/10/20 22:33 Dose: 5 mg Documented by: Medical Necessity - Tobacco Use Smoking Status: Never smoker Tobacco Use: Non-smoker Assessment/Plan All Active Problems (This Medical Record has been edited. Action required.) Diabetic infection of left foot (Acute) Chest pain (Acute) NSTEMI (non-ST elevated myocardial infarction) (Resolved 09/20/18) History of coronary artery stent placement (Resolved 09/21/18) Abscess of left foot (Resolved) Cellulitis of left foot (Resolved) Chest pain (Resolved) Diabetic foot infection (Resolved) Diarrhea (Resolved) Enteritis, Yersinia enterocolitica (Resolved) Hyperglycemia (Resolved) Intractable nausea and vomiting (Resolved) Malnutrition (Resolved) Necrotizing soft tissue infection (Resolved) Severe sepsis (Resolved) This is a 55-year-old female with multiple comorbidities including uncontrolled diabetes mellitus type 2 with diabetic neuropathy and Charcot's foot was admitted with left-sided chest pain. She also has chronic left plantar foot ulcer for 3 months. 1. chest pain: Resolved. Stress test negative. Possible costochondritis. CTA negative for pneumonia and pulmonary embolism. On PPI. GI follow-up as an outpatient. 2. Left foot diabetic infected ulcer: Patient had debridement on 09/02 complicated by bleeding. MRI did not show acute osteomyelitis.Cultures growing out Enterobacter, S. aureas and S. haemolyticus. Started trimethoprim/sulfamethoxazole 09/05. Patient further had debridement of left foot ulceration down to the fascial level. Tissue sent to pathology. May need wound VAC. 09/09: There was bleeding after surgery from the left foot. Bleeding is controlled. No major drop in H&H from 9.5-9.1. 09/10: Bleeding is controlled. H&H is stable. Patient wants to go home but was advised SNF as she will have more help with dressing and movement. Nonweightbearing left foot. 09/11: H&H remains stable. Blood pressure is good. No active bleeding. 3. Acute blood loss anemia due to wound debridement secondary to left diabetic plantar ulcer: Dropped to 6.7/25. Had 2 units of PRBC transfusion. 4. LLE edema: * improved per patient. Duplex negative. Concern for DVT as pt recently came back from [place]. Arterial study shows normal bilateral lower extremity resting RALPH and triphasic waveforms 09/01/2020.. Right RALPH 1.28. Left RALPH 1.3. 5. DM2, uncontrolled, complicated with diabetic neuropathy, Charcot's and probably diabetic retinopathy: * A1c 9.8. On glargine and SSI log with meals. * Glucose is running 103 and 95 today. Accu-Cheks in 100s yesterday. Insulin glargine decreased to 22 units of cutaneous twice daily and lispro 10 units of units 3 times daily with meals. Continue Accu-Cheks with coverage insulin. 09/09: Patient complain of blurry vision for 3 days but she told today and Dots and blots, I talked to the sheet mill supervisor Dr. Crawford. He did not find any previous records in his office. He further agreed to see the patient on the same day of discharge and easy to examine and complete evaluation in the office as they have ophthalmology equipments. We both agree. Blood sugars are reasonably well controlled. 09/10: Blood sugar is elevated 226 and 267. Glucose in BMP 225. Dose dose of Humalog and Lantus was cautiously increased with holding parameters as patient had low blood sugar 2 days ago. 09/11: Glucose is controlled, 171. 6. VTE prophylaxis: SCDs. hold enoxaparin given anemia. 7. Disposition to a SNF: programs manager and physical therapist working on it. Ophthalmology visit to be arranged on the day of discharge hopefully tomorrow. Laboratory Results 09/10/20 16:55: POC Glucose 213 H 09/10/20 22:23: POC Glucose 177 H 09/11/20 03:54: Sodium 136, Potassium 5.1, Chloride 108 H, Carbon Dioxide 23.0, Anion Gap 5, BUN 40 H, Creatinine 1.60 H, Estim Creat Clear Calc 37.19, Est GFR (MDRD) Af Amer 43 L, Est GFR (MDRD) Non-Af 36 L, BUN/Creatinine Ratio 25.0 H, Glucose 272 H, Calcium 9.0 09/11/20 06:20: POC Glucose 254 H 09/11/20 06:40: WBC 7.1, RBC 3.31 L, Hgb 9.5 L, Hct 30.2 L, MCV 91.2, MCH 28.7, MCHC 31.5 L, RDW Std Deviation 43.1, RDW Coeff of Fior 13.2, Plt Count 305, MPV 10.1, Immature Gran % (Auto) 0.400, Neut % (Auto) 64.7, Lymph % (Auto) 25.2, [place] % (Auto) 6.0, Eos % (Auto) 3.1, Baso % (Auto) 0.6, Absolute Neuts (auto) 4.6, Absolute Lymphs (auto) 1.79, Nucleated RBC % 0 09/11/20 11:38: POC Glucose 171 H Clinical Impression(s) from Imaging Studies Chest X-Ray 08/31/20 18:46 IMPRESSION: Nonacute portable x-ray examination of the chest. Electronically Signed: Shan Cadet MD ([place]) at 19:08 EST , Service support , Chest CTA 08/31/20 19:17 IMPRESSION: 1. No pulmonary embolism 2. No acute chest findings. Electronically Signed: Janessa Baca at 20:03 EST Tel , Service support , Foot X-Ray 08/31/20 21:05 IMPRESSION: Status post resection of the fifth toe proximal shaft of the fifth metatarsal. Cannot definitively exclude early changes of acute osteomyelitis at the operative site. Clinical correlation recommended Electronically Signed: Jefe Cesar MD at 22:02 EST , Service support , Lower Extremity MRI 09/01/20 12:38 IMPRESSION: 1. Large 5.81 x 1.70 cm open skin defect/wound on the lateral plantar aspect of the foot contains fluid and debris and can be a infected. The investing fascia and the plantar aspect of the foot beneath the fourth metatarsal bone encloses the complex fluid collection, and there is no demonstrated intramuscular extension or contact with the overlying bony structures. 2. Mild cortical irregularity is present at the base and plantar and lateral aspect of the fifth metatarsal bone and cuboid which could be related to prior infection or sequela from previous trauma. 3. No active bone marrow edema or cortical erosion is seen to suggest active osteomyelitis. Electronically Signed: Noel De Jesus MD at 20:36 EST , Service support , Inpatient E&M: [id number] Subs Hosp L2
[2020-09-11] MEDS: oxyCODONE 5 MG Tablet 10 MG PO (17:00)
[2020-09-11 20:00] VITALS: BP 114/55; PULSE 74; RESP 16; TEMP 37; O2SAT 98
[2020-09-11] MEDS: Pramipexole Di-HCl 1 MG Tablet 3 MG PO (21:21)
[2020-09-11] MEDS: Paroxetine 20 MG Tablet PO (21:21)
[2020-09-11] MEDS: Atorvastatin Calcium 80 MG Tablet PO (21:21)
[2020-09-11] MEDS: Zolpidem Tartrate 5 MG Tablet PO (21:30)
[2020-09-11 21:45] LABS: Bedside Glucose 325 mg/dL (70-110)
[2020-09-11 22:00] VITALS: PULSE 74
[2020-09-12 02:00] VITALS: BP 120/60; PULSE 75; RESP 16; TEMP 36.9; O2SAT 96
[2020-09-12 05:27] VITALS: BP 101/61; PULSE 80; RESP 16; TEMP 36.9; O2SAT 98
[2020-09-12 05:32] LABS: Absolute Lymphocyte Count 1.72 X10^3/uL (0.83-4.51); Absolute Neutrophil Count 6.5 X10^3/uL (2.0-7.7); Basophil# 0.06 X10^3/uL; Basophil% 0.7 % (0-1); Eosinophil# 0.24 X10^3/uL; Eosinophils% 2.7 % (0-5); Hematocrit 30.2 % (37-47); Hemoglobin 9.4 g/dL (12.0-15.0); Lymphocyte # 1.72 X10^3/ul (4.0); Lymphocyte % 19.1 % (19-41); Mean Corp Hgb Conc 31.1 g/dL (32-36); Mean Corpuscular Hgb 28.5 pg (27.0-32.0); Mean Corpuscular Volume 91.5 fL (81-99); Mean Platelet Vol. 10.7 fl (6.2-12.0); Monocyte# 0.48 X10^3/uL; Monocyte% 5.3 % (0-10); NRBC Flagged by Analyzer 0 % (0-5); Neutrophil # 6.48 X10^3/uL (2.7-7.7); Neutrophil % 71.9 % (47-70); Platelet Count 348 K/mm3 (150-450); RBC Distribution Width CV 13.2 % (11.6-14.6); RBC Distribution Width SD 43.8 fl (35.1-43.9)
[2020-09-12 05:47] LABS: Anion Gap 6 (5-15); BUN 39 mg/dL (7-18); Calcium,Total 9.4 mg/dL (8.5-10.1); Chloride 109 mmol/L (98-107); Creatinine, Serum 1.56 mg/dL (0.55-1.02); EST Glomerular Filtration Rate 37 mL/min (>60); Est Glom Filt Rate - Afr Amer 44 mL/min (>60); Estimated Creatinine Clearance 38.14 ml/min; Glucose 232 mg/dL (74-106); Potassium 5.5 mmol/L (3.5-5.1); Sodium Level 138 mmol/L (136-145)
[2020-09-12] MEDS: Insulin Lispro 100 UNIT/ML INSULN.PEN SC ×2 (06:28→08:39)
[2020-09-12 06:46] LABS: Bedside Glucose 251 mg/dL (70-110)
--- NOTE | 2020-09-12 08:26 | CASEMGMT ---
LUCRETIA called [facility] to reschedule patient's appointment as we still do not have insurance approval for TCU. SW changed appt to tomorrow 09-13 at 10:30a, they want her there at 10:20a. SW called [facility] and canceled today's poultry picking machine tender and they will now pick her up Tuesday at 9a. LUCRETIA called LUCRETIA Thomas in TCU and notified her of this information. Plan: TCU pending insurance approval. She has an eye doctor appt with Dr Crawford at [facility] 09-13 at 10:30. They want her there at 10:20. [facility] will pick her up at 9am. Kamilla MCCORD MSW
[2020-09-12 08:36] VITALS: BP 117/61; PULSE 73; RESP 15; TEMP 36.8; O2SAT 97
[2020-09-12] MEDS: Iron Polysaccharide Complex 150 MG CAPSULE PO (08:38)
[2020-09-12] MEDS: Smz/Tmp Ds Tablet 1 TABLET PO (08:38)
[2020-09-12] MEDS: Gabapentin 300 MG Capsule 900 MG PO ×2 (08:38→11:25)
[2020-09-12] MEDS: Aspirin E.C. 81 MG Tablet PO (08:38)
[2020-09-12] MEDS: Isosorbide Mononitrate 30 MG Tablet PO (08:39)
[2020-09-12] MEDS: Pantoprazole Sodium 40 MG Tablet PO (08:39)
[2020-09-12] MEDS: Insulin Lispro 100 UNIT/ML INSULN.PEN 15 UNIT SC ×2 (08:40→12:23)
[2020-09-12] MEDS: proCHLORPERazine 10 MG/2 ML Vial 5 MG IV (08:43)
[2020-09-12] MEDS: Acetaminophen 325 MG Tablet 650 MG PO (08:44)
--- NOTE | 2020-09-12 09:16 | NURSING ---
PT informed this RN that when she went in to work with patient she found her on the bsc which was haphazardly placed skilled nursing between the bed and the bathroom. When the therapist asked how she got there the patient stated she crawled. Therapist cleaned her up, assisted her to the chair and instructed her to please call for assistance before moving to the bedside commode.
--- NOTE | 2020-09-12 10:44 | TREXTCAR_ITS ---
- Diet 09/08/20 13:47 Diet: Cardiac: Calorie-Controlled Is pt able to select menu?: Yes How many daily calories?: 1800 calorie - Routine Orders/Code Status Suppository Type: Dulcolax 10mg Suppository Frequency: Daily PRN Routine Lab Work: CBC, BMP - while on antibiotic Code Status: Full Code - Wound(s) left foot wound Wound Type: Neuropathic/Diabetic Foot Ulcer left plantar foot Wound Type: Neuropathic/Diabetic Foot Ulcer Dressing Change: applied KCI wound VAC right lateral ankle Wound Type: scabs Dressing Change: applied Mepilex - Therapies Weight Bearing: Non weight bearing Extremity Affected:: Left Lower Physical Therapy: Eval and Treat Occupational Therapy: Eval and Treat Speech Therapy: Eval and Treat - Allergies/Procedures Done in Hospital Allergies/Adverse Reactions: Allergies Penicillins Allergy (Verified 08/31/20 22:02) Shortness of breath vancomycin Allergy (Verified 08/31/20 22:02) Itching metronidazole Adverse Reaction (Verified 08/31/20 22:02) Nausea OXYCONTIN Allergy (Uncoded 08/31/20 22:02) Shortness of breath - Type of Care/Length of Stay Estimated LOS: Convalescent Care Less Than 30 days Type of Care Needed: Skilled Rehab Potential: Good Prognosis: Good - Additional Orders/Day of Discharge Day of Discharge: 09/12/20 - Dietary and Speech Recommendations Dietitian Recommendations/Changes: Continue 1800 calorie/cardiac diet. Will d/c 120 ml glucerna shake w/ medpass and Ted BID due to pt refusal. Encourage intake of protein at meals for wound healing. - Follow Up Care Primary Care Physician: Raúl Eric MD [Primary Care Provider] - Please follow up with your Primary Care Physician in: in 1-2 weeks Please Follow Up With: Wandy Lam NP, MEDICAL RECORD CLERK-C Please Follow Up With: Clinic,Wound When: 1 week. [facility] sooner if concerns [phone] Please Follow Up With: Kike Tello MD When: prn for antibiotic issues/left fppt ulcer
--- NOTE | 2020-09-12 10:46 | PCM.PN.HOSP ---
Patient Problems: Active and Suspected Problems (This Medical Record has been edited. Action required.) Diabetic infection of left foot (Acute) Chest pain (Acute) Vitals/I&O's: Vital Signs Temp Pulse Resp BP Pulse Ox 98.3 F 73 15 117/61 97 09/12/20 08:36 09/12/20 08:36 09/12/20 08:36 09/12/20 08:36 09/12/20 08:36 Oxygen Flow Rate (L/min) 2 Oxygen Delivery Method Room Air Weight: 203 lb 0.732 oz Body Mass Index (BMI) 32.1 Finger Stick Blood Glucose 95 Intake and Output for Last 24 Hours 09/10/20 09/11/20 09/12/20 23:59 23:59 23:59 Intake Total 1000 / 1200 540 / 540 Output Total 800 / 800 1050 / 1050 300 / 300 Balance 200 / 400 -510 / -510 -300 / -300 Laboratory Results 09/11/20 11:38: POC Glucose 171 H 09/11/20 21:31: POC Glucose 325 H 09/12/20 05:00: WBC 9.0, RBC 3.30 L, Hgb 9.4 L, Hct 30.2 L, MCV 91.5, MCH 28.5, MCHC 31.1 L, RDW Std Deviation 43.8, RDW Coeff of Fior 13.2, Plt Count 348, MPV 10.7, Immature Gran % (Auto) 0.300, Neut % (Auto) 71.9 H, Lymph % (Auto) 19.1, [place] % (Auto) 5.3, Eos % (Auto) 2.7, Baso % (Auto) 0.7, Absolute Neuts (auto) 6.5, Absolute Lymphs (auto) 1.72, Nucleated RBC % 0 09/12/20 05:00: Sodium 138, Potassium 5.5 H, Chloride 109 H, Carbon Dioxide 23.0, Anion Gap 6, BUN 39 H, Creatinine 1.56 H, Estim Creat Clear Calc 38.14, Est GFR (MDRD) Af Amer 44 L, Est GFR (MDRD) Non-Af 37 L, BUN/Creatinine Ratio 25.0 H, Glucose 232 H, Calcium 9.4 09/12/20 06:26: POC Glucose 251 H Current Medications Acetaminophen (Acetaminophen 325 Mg Tablet) 650 mg PO Q6H PRN PRN PRN Reason: Pain Score 1-10/Temp > 100.7 F Last Admin: 09/12/20 08:44 Dose: 650 mg Documented by: Al Hydroxide/Mg Hydroxide (Mag Hydrox/Al Hydrox/Simeth 30 Ml Udc) 30 ml PO Q6H PRN PRN PRN Reason: Gastric Burning Albuterol Sulfate (Albuterol 2.5 Mg/3 Ml Vial.Neb.) 2.5 mg INHALATION Q2H PRN PRN PRN Reason: Dyspnea, wheezing Aspirin (Aspirin E.C. 81 Mg Tablet) 81 mg PO DAILY@0800 [facility] Last Admin: 09/12/20 08:38 Dose: 81 mg Documented by: Atorvastatin Calcium (Atorvastatin Calcium 80 Mg Tablet) 80 mg PO QHS [facility] Last Admin: 09/11/20 21:21 Dose: 80 mg Documented by: Diphenhydramine HCl (Diphenhydramine 50 Mg/Ml Syringe) 25 mg IV Q6H PRN PRN PRN Reason: ITCHING Gabapentin (Gabapentin 300 Mg Capsule) 900 mg PO TIDCM [facility] Last Admin: 09/12/20 08:38 Dose: 900 mg Documented by: Guaifenesin (Guaifenesin 10 Ml Udc (200mg/10ml)) 20 ml PO Q4H PRN PRN PRN Reason: COUGH Hydralazine HCl (Hydralazine 20 Mg/Ml Vial) 10 mg IV Q4H PRN PRN PRN Reason: SBP > 160 Last Admin: 09/05/20 09:16 Dose: 10 mg Documented by: Sodium Chloride () 250 mls @ 15 mls/hr IV .[id number] PRN PRN Reason: Saline Flush Last Infusion: 09/10/20 13:47 Dose: Infused Documented by: Sodium Chloride () 250 mls @ 15 mls/hr IV .[id number] PRN PRN Reason: Additional IVPB Infusion Sodium Chloride () 250 mls @ 15 mls/hr IV .[id number] PRN PRN Reason: Saline Flush Sodium Chloride () 250 mls @ 15 mls/hr IV .[id number] PRN PRN Reason: Additional IVPB Infusion Insulin Glargine (Insulin Glargine 100 Units/Ml Pen) 30 units SC BID [facility] Last Admin: 09/12/20 08:39 Dose: 30 unit Documented by: Insulin Human Lispro (Insulin Lispro 100 Unit/Ml Insuln.Pen) 0 unit SC ACHS [facility]; Protocol Last Admin: 09/12/20 08:39 Dose: 4 units Documented by: Insulin Human Lispro (Insulin Lispro 100 Unit/Ml Insuln.Pen) 15 unit SC TIDCM [facility] Last Admin: 09/12/20 08:40 Dose: 15 u Documented by: Isosorbide Mononitrate (Isosorbide Mononitrate 30 Mg Tablet) 30 mg PO DAILY [facility] Last Admin: 09/12/20 08:39 Dose: 30 mg Documented by: Magnesium Hydroxide (Magnesium Hydroxide 30 Ml Udc) 30 ml PO DAILY PRN PRN PRN Reason: Constipation Last Admin: 09/10/20 08:09 Dose: 30 ml Documented by: Melatonin (Melatonin 3 Mg Tablet) 3 mg PO QHS PRN PRN PRN Reason: INSOMNIA Nitroglycerin (Nitroglycerin (Inpatient Use) 0.4 Mg Tab.Subl) 0.4 mg SUBLINGUAL Q5M PRN PRN Reason: CARDIAC/CHEST PAIN Ondansetron HCl (Ondansetron 4 Mg/2 Ml Vial) 4 mg IV Q8H PRN PRN PRN Reason: NAUSEA/VOMITING Last Admin: 09/04/20 23:40 Dose: 4 mg Documented by: Oxycodone HCl (Oxycodone 5 Mg Tablet) 5 mg PO Q4H PRN PRN PRN Reason: Pain Score 4-5 Last Admin: 09/11/20 21:43 Dose: 5 mg Documented by: Oxycodone HCl (Oxycodone 5 Mg Tablet) 10 mg PO Q4H PRN PRN PRN Reason: Pain Score 6-10 Last Admin: 09/11/20 17:00 Dose: 10 mg Documented by: Pantoprazole Sodium (Pantoprazole Sodium 40 Mg Tablet) 40 mg PO DAILY [facility] Last Admin: 09/12/20 08:39 Dose: 40 mg Documented by: Paroxetine HCl (Paroxetine 20 Mg Tablet) 20 mg PO QHS [facility] Last Admin: 09/11/20 21:21 Dose: 20 mg Documented by: Polysaccharide Iron Complex (Iron Polysaccharide Complex 150 Mg Capsule) [facility] Last Admin: 09/12/20 08:38 Dose: 150 mg Documented by: Pramipexole Dihydrochloride (Pramipexole Di-Hcl 1 Mg Tablet) 3 mg PO QHS [facility] Last Admin: 09/11/20 21:21 Dose: 3 mg Documented by: Prochlorperazine Edisylate (Prochlorperazine 10 Mg/2 Ml Vial) 5 mg IV Q4H PRN PRN PRN Reason: Breakthrough Nausea/Vomiting Last Admin: 09/12/20 08:43 Dose: 5 mg Documented by: Psyllium Hydrophilic Mucilloid (Psyllium 1 Packet) 1 packet PO DAILY PRN PRN PRN Reason: Constipation Senna/Docusate Sodium (Senna/Docusate Sodium 1 Tablet) 2 tablet PO BID PRN PRN PRN Reason: Constipation Last Admin: 09/10/20 08:09 Dose: 2 tablet Documented by: Sodium Chloride (0.9% Saline Lock 10 Ml Syringe) 10 - 40 ml IV UD PRN PRN Reason: SALINE FLUSH Last Admin: 09/09/20 01:37 Dose: 10 ml Documented by: Sodium Chloride (0.9% Saline Lock 10 Ml Syringe) 10 - 40 ml IV UD PRN PRN Reason: SALINE FLUSH Last Admin: 09/09/20 12:00 Dose: 10 ml Documented by: Throat Lozenges (Benzocaine/Menthol 1 Lozenge) 1 lozenge MUCOUS MEM Q2H PRN PRN PRN Reason: SORE THROAT Trimethoprim/Sulfamethoxazole (Smz/Tmp Ds Tablet) 1 [facility] Last Admin: 09/12/20 08:38 Dose: 1 tablet Documented by: Zolpidem Tartrate (Zolpidem Tartrate 5 Mg Tablet) 5 mg PO QHS [facility] Last Admin: 09/11/20 21:30 Dose: 5 mg Documented by: STROKE Vital Signs/Narrative: Vital Signs Temp Pulse Resp BP Pulse Ox 09/12/20 08:36 98.3 F 73 15 117/61 97 Medical Necessity - Tobacco Use Smoking Status: Never smoker Tobacco Use: Non-smoker Assessment/Plan All Active Problems (This Medical Record has been edited. Action required.) Diabetic infection of left foot (Acute) Chest pain (Acute) NSTEMI (non-ST elevated myocardial infarction) (Resolved 09/20/18) History of coronary artery stent placement (Resolved 09/21/18) Abscess of left foot (Resolved) Cellulitis of left foot (Resolved) Chest pain (Resolved) Diabetic foot infection (Resolved) Diarrhea (Resolved) Enteritis, Yersinia enterocolitica (Resolved) Hyperglycemia (Resolved) Intractable nausea and vomiting (Resolved) Malnutrition (Resolved) Necrotizing soft tissue infection (Resolved) Severe sepsis (Resolved)
--- NOTE | 2020-09-12 11:24 | CASEMGMT ---
Addendum entered by Kamilla Tinsley 09/12/20 11:33: Patient did not want SW to call family to notify them of her d/c to TCU. Kamilla SALAZAR Original Note: Patient was approved to go to TCU. SW notified patient, RN, dental secretary, and physician. SW also told patient her eye doctor appt is tomorrow at 1030 and they will pick her up at 9a. Plan: d/c to [facility] TCU under skilled level of care. Kamilla SALAZAR
[2020-09-12 11:26] VITALS: BP 117/61; PULSE 73; RESP 15; TEMP 36.8; O2SAT 97
[2020-09-12 11:35] LABS: Bedside Glucose 176 mg/dL (70-110)
--- NOTE | 2020-09-12 12:01 | DS.PCM_ITS ---
Discharge Date and Diagnosis - Problem List Patient Problems: Active and Suspected Problems (This Medical Record has been edited. Action required.) Diabetic infection of left foot (Acute) Chest pain (Acute) Date of Admission: 08/31/20 Date of Discharge: 09/12/20 - Primary Discharge Diagnosis Acute Problems: Active Problems (This Medical Record has been edited. Action required.) Diabetic infection of left foot (Acute) Chest pain (Acute) - Secondary Discharge Diagnosis Chronic Problems: Chronic Problems (This Medical Record has been edited. Action required.) Anemia (Chronic) Anxiety and depression (Chronic) RLS (restless legs syndrome) (Chronic) Uncontrolled type II diabetes mellitus (Chronic) Obesity (Chronic) Atherosclerosis of [place] coronary artery of [place] heart without angina pectoris (Chronic) Essential (primary) hypertension (Chronic) HLD (hyperlipidemia) (Chronic) Hospital Course and Treatment Consultations 08/31/20 21:47 Consult: Onc/Wound/glass pulverizer equipment operator Routine Comment: 08/31/20 22:52 Consult: Onc/Wound/glass pulverizer equipment operator Routine Comment: left diabetic foot ulcer Operations: None, - Summary of Care Provided: [] This is a 55-year-old female with multiple comorbidities including uncontrolled diabetes mellitus type 2 with diabetic neuropathy and Charcot's foot was admitted with left-sided chest pain. She also has chronic left plantar foot ulcer for 3 months. 1. chest pain: Resolved. Stress test negative. Possible costochondritis. CTA negative for pneumonia and pulmonary embolism. On PPI. GI follow-up as an outpatient. 2. Left foot diabetic infected ulcer: Patient had debridement on 09/02 complicated by bleeding. MRI did not show acute osteomyelitis.Cultures growing out Enterobacter, S. aureas and S. haemolyticus. Started trimethoprim/sulfamethoxazole 09/05. Patient had surgical debridement of left foot ulcer down to the fascial level on 09/08. Discussed with ID regarding duration of antibiotic Bactrim DS. He suggested 10 days after surgical debridement therefore 7 more days of Bactrim DS. Follow-up with wound center with franchise broker as directed in their discharge instruction. Weekly CBC and BMP as patient is antibiotic. Patient had wound VAC placement on 09/11. Patient had bleeding after surgical debridement and was controlled. 3. Acute blood loss anemia due to wound debridement secondary to left diabetic plantar ulcer: Dropped to 6.7/25. Had 2 units of PRBC transfusion. 4. LLE edema: * improved per patient. Duplex negative was negative for DVT. Arterial study shows normal bilateral lower extremity resting RALPH and triphasic waveforms 09/01/2020.. Right RALPH 1.28. Left RALPH 1.3. 5. DM2, uncontrolled, complicated with diabetic neuropathy, Charcot's and probably diabetic retinopathy: * A1c 9.8. On glargine and SSI log with meals. Patient glucose was controlled on Lantus and Humalog insulin. Patient also has blurry vision possible diabetic retinopathy and laser surgery in the past. I talked to the plywood layup line core layer Dr. Crawford and he agreed to see the patient after his discharge therefore tomorrow on 09/13/2020 appointment with [facility]. 6. VTE prophylaxis: SCDs. hold enoxaparin given anemia. Discharge medication reconciliation done. Discharge follow-up instructions completed. Discharge process discussed with the patient and all questions were answered to patient's satisfaction. Patient is discharged to TCU. Continue PT and OT. Total time spent, exact 35 minutes on discharge meds reconciliation, examination, coordination of care with nurses and ancillary staff, review of imaging and blood test and discussion with the patient on follow-up instru ctions Clinical Impression(s) from Imaging Studies Lower Extremity MRI 09/01/20 12:38 IMPRESSION: 1. Large 5.81 x 1.70 cm open skin defect/wound on the lateral plantar aspect of the foot contains fluid and debris and can be a infected. The investing fascia and the plantar aspect of the foot beneath the fourth metatarsal bone encloses the complex fluid collection, and there is no demonstrated intramuscular extension or contact with the overlying bony structures. 2. Mild cortical irregularity is present at the base and plantar and lateral aspect of the fifth metatarsal bone and cuboid which could be related to prior infection or sequela from previous trauma. 3. No active bone marrow edema or cortical erosion is seen to suggest active osteomyelitis. Chest X-Ray 08/31/20 18:46 IMPRESSION: Nonacute portable x-ray examination of the chest. Chest CTA 08/31/20 19:17 IMPRESSION: 1. No pulmonary embolism 2. No acute chest findings. Electronically Signed: Janessa Baca, at 20:03 EST Tel , Service support , Foot X-Ray 08/31/20 21:05 IMPRESSION: Status post resection of the fifth toe proximal shaft of the fifth metatarsal. Cannot definitively exclude early changes of acute osteomyelitis at the operative site. Clinical correlation recommended Patient Problems: Active and Suspected Problems (This Medical Record has been edited. Action required.) Diabetic infection of left foot (Acute) Chest pain (Acute) Objective: Heart rate in 70s. Blood pressure 117/61. Discussed with caser in and social insurance specialist and pre-CERT for TCU received. Patient is still complaining of blurry vision more on the right lung field and patient can go to [facility] tomorrow after discharge. Physical exam General: Alert, Oriented x3, Cooperative HEENT: Atraumatic, PERRLA, EOMI, Normocephalic. Mild decrease in the peripheral field of vision mainly on the right lateral field of vision, chronic. Oral: No Gingival or Mucosal Lesions/ Ulcerations Neck: Supple, No JVD, Negative Carotid Bruits Lungs: Air entry diminished in bilateral lung bases. No crepitation/rhonchi Cardiovascular: Regular rate, Regular Rhythm, Normal S1, Normal S2, No murmurs Abdomen: Bowel Sounds Present, Soft, Non Tender, Non-Distended : No renal angle tenderness. No suprapubic tenderness. Extremities: No edema, Capillary Refill Less than 3 Seconds Skin: Left plantar ulcer in lateral midfoot down to fascia level with nonviable tissue on the base. Surgical dressing is dry. No active bleeding. Right ankle ulcers healed. Musculoskeletal: No Tenderness to Palpation of Joints or Extremities. Chronic bilateral ankle and foot Charcot joint Neurological: Cranial nerves II-XII grossly intact, Deep Tendon Reflexes 2+/4 and Symmetrical, Neuro grossly intact Psych/Mental Status: Normal Affect, Appropriate - Physical Exam Vitals/I&O's: Vital Signs Temp Pulse Resp BP Pulse Ox 98.3 F 73 15 117/61 97 09/12/20 11:26 09/12/20 11:26 09/12/20 11:09/12/20 11:09/12/20 11: Oxygen Flow Rate (L/min) 2 Oxygen Delivery Method Room Air Weight: 203 lb 0.732 oz Body Mass Index (BMI) 32.1 Finger Stick Blood Glucose 95 Intake and Output for Last 24 Hours 09/10/20 09/11/20 09/12/20 23:59 23:59 23:59 Intake Total 1000 / 1200 540 / 540 480 / 480 Output Total 800 / 800 1050 / 1050 1100 / 1100 Balance 200 / 400 -510 / -510 -620 / -620 Laboratory Results 09/11/20 21:31: POC Glucose 325 H 09/12/20 05:00: WBC 9.0, RBC 3.30 L, Hgb 9.4 L, Hct 30.2 L, MCV 91.5, MCH 28.5, MCHC 31.1 L, RDW Std Deviation 43.8, RDW Coeff of Fior 13.2, Plt Count 348, MPV 10.7, Immature Gran % (Auto) 0.300, Neut % (Auto) 71.9 H, Lymph % (Auto) 19.1, [place] % (Auto) 5.3, Eos % (Auto) 2.7, Baso % (Auto) 0.7, Absolute Neuts (auto) 6.5, Absolute Lymphs (auto) 1.72, Nucleated RBC % 0 09/12/20 05:00: Sodium 138, Potassium 5.5 H, Chloride 109 H, Carbon Dioxide 23.0, Anion Gap 6, BUN 39 H, Creatinine 1.56 H, Estim Creat Clear Calc 38.14, Est GFR (MDRD) Af Amer 44 L, Est GFR (MDRD) Non-Af 37 L, BUN/Creatinine Ratio 25.0 H, Glucose 232 H, Calcium 9.4 09/12/20 06:26: POC Glucose 251 H 09/12/20 11:22: POC Glucose 176 H Current Medications Acetaminophen (Acetaminophen 325 Mg Tablet) 650 mg PO Q6H PRN PRN PRN Reason: Pain Score 1-10/Temp > 100.7 F Last Admin: 09/12/20 08:44 Dose: 650 mg Documented by: Al Hydroxide/Mg Hydroxide (Mag Hydrox/Al Hydrox/Simeth 30 Ml Udc) 30 ml PO Q6H PRN PRN PRN Reason: Gastric Burning Albuterol Sulfate (Albuterol 2.5 Mg/3 Ml Vial.Neb.) 2.5 mg INHALATION Q2H PRN PRN PRN Reason: Dyspnea, wheezing Aspirin (Aspirin E.C. 81 Mg Tablet) 81 mg PO DAILY@0800 TAB Last Admin: 09/12/20 08:38 Dose: 81 mg Documented by: Atorvastatin Calcium (Atorvastatin Calcium 80 Mg Tablet) 80 mg PO QHS [facility] Last Admin: 09/11/20 21:21 Dose: 80 mg Documented by: Diphenhydramine HCl (Diphenhydramine 50 Mg/Ml Syringe) 25 mg IV Q6H PRN PRN PRN Reason: ITCHING Gabapentin (Gabapentin 300 Mg Capsule) 900 mg PO TIDCM [facility] Last Admin: 09/12/20 11:25 Dose: 900 mg Documented by: Guaifenesin (Guaifenesin 10 Ml Udc (200mg/10ml)) 20 ml PO Q4H PRN PRN PRN Reason: COUGH Hydralazine HCl (Hydralazine 20 Mg/Ml Vial) 10 mg IV Q4H PRN PRN PRN Reason: SBP > 160 Last Admin: 09/05/20 09:16 Dose: 10 mg Documented by: Sodium Chloride () 250 mls @ 15 mls/hr IV .[id number] PRN PRN Reason: Saline Flush Last Infusion: 09/10/20 13:47 Dose: Infused Documented by: Sodium Chloride () 250 mls @ 15 mls/hr IV .[id number] PRN PRN Reason: Additional IVPB Infusion Sodium Chloride () 250 mls @ 15 mls/hr IV .[id number] PRN PRN Reason: Saline Flush Sodium Chloride () 250 mls @ 15 mls/hr IV .[id number] PRN PRN Reason: Additional IVPB Infusion Insulin Glargine (Insulin Glargine 100 Units/Ml Pen) 30 units SC BID [facility] Last Admin: 09/12/20 08:39 Dose: 30 unit Documented by: Insulin Human Lispro (Insulin Lispro 100 Unit/Ml Insuln.Pen) 0 unit SC ACHS [facility]; Protocol Last Admin: 09/12/20 08:39 Dose: 4 units Documented by: Insulin Human Lispro (Insulin Lispro 100 Unit/Ml Insuln.Pen) 15 unit SC TIDCM S Last Admin: 09/12/20 08:40 Dose: 15 u Documented by: Isosorbide Mononitrate (Isosorbide Mononitrate 30 Mg Tablet) 30 mg PO DAILY [facility] Last Admin: 09/12/20 08:39 Dose: 30 mg Documented by: Magnesium Hydroxide (Magnesium Hydroxide 30 Ml Udc) 30 ml PO DAILY PRN PRN PRN Reason: Constipation Last Admin: 09/10/20 08:09 Dose: 30 ml Documented by: Melatonin (Melatonin 3 Mg Tablet) 3 mg PO QHS PRN PRN PRN Reason: INSOMNIA Nitroglycerin (Nitroglycerin (Inpatient Use) 0.4 Mg Tab.Subl) 0.4 mg SUBLINGUAL Q5M PRN PRN Reason: CARDIAC/CHEST PAIN Ondansetron HCl (Ondansetron 4 Mg/2 Ml Vial) 4 mg IV Q8H PRN PRN PRN Reason: NAUSEA/VOMITING Last Admin: 09/04/20 23:40 Dose: 4 mg Documented by: Oxycodone HCl (Oxycodone 5 Mg Tablet) 5 mg PO Q4H PRN PRN PRN Reason: Pain Score 4-5 Last Admin: 09/11/20 21:43 Dose: 5 mg Documented by: Oxycodone HCl (Oxycodone 5 Mg Tablet) 10 mg PO Q4H PRN PRN PRN Reason: Pain Score 6-10 Last Admin: 09/11/20 17:00 Dose: 10 mg Documented by: Pantoprazole Sodium (Pantoprazole Sodium 40 Mg Tablet) 40 mg PO DAILY [facility] Last Admin: 09/12/20 08:39 Dose: 40 mg Documented by: Paroxetine HCl (Paroxetine 20 Mg Tablet) 20 mg PO QHS [facility] Last Admin: 09/11/20 21:21 Dose: 20 mg Documented by: Polysaccharide Iron Complex (Iron Polysaccharide Complex 150 Mg Capsule) [facility] Last Admin: 09/12/20 08:38 Dose: 150 mg Documented by: Pramipexole Dihydrochloride (Pramipexole Di-Hcl 1 Mg Tablet) 3 mg PO QHS [facility] Last Admin: 09/11/20 21:21 Dose: 3 mg Documented by: Prochlorperazine Edisylate (Prochlorperazine 10 Mg/2 Ml Vial) 5 mg IV Q4H PRN PRN PRN Reason: Breakthrough Nausea/Vomiting Last Admin: 09/12/20 08:43 Dose: 5 mg Documented by: Psyllium Hydrophilic Mucilloid (Psyllium 1 Packet) 1 packet PO DAILY PRN PRN PRN Reason: Constipation Senna/Docusate Sodium (Senna/Docusate Sodium 1 Tablet) 2 tablet PO BID PRN PRN PRN Reason: Constipation Last Admin: 09/10/20 08:09 Dose: 2 tablet Documented by: Sodium Chloride (0.9% Saline Lock 10 Ml Syringe) 10 - 40 ml IV UD PRN PRN Reason: SALINE FLUSH Last Admin: 09/09/20 01:37 Dose: 10 ml Documented by: Sodium Chloride (0.9% Saline Lock 10 Ml Syringe) 10 - 40 ml IV UD PRN PRN Reason: SALINE FLUSH Last Admin: 09/09/20 12:00 Dose: 10 ml Documented by: Throat Lozenges (Benzocaine/Menthol 1 Lozenge) 1 lozenge MUCOUS MEM Q2H PRN PRN PRN Reason: SORE THROAT Trimethoprim/Sulfamethoxazole (Smz/Tmp Ds Tablet) [facility] Last Admin: 09/12/20 08:38 Dose: 1 tablet Documented by: Zolpidem Tartrate (Zolpidem Tartrate 5 Mg Tablet) 5 mg PO QHS [facility] Last Admin: 09/11/20 21:30 Dose: 5 mg Documented by: Discharge Activity: May Shower - with shower bag, Use Walker Weight Bearing Status: No weight bearing Keep extremity elevated above heart level: Left Leg Call your doctor if your incision/area has: Continuous Slow Oozing, Sudden In creased Bleeding, Increased Pain/ Swelling, Increased Redness, Foul Smelling Discharge Call your doctor if you observe: Fever of 101 or Higher, Calf discomfort, Uncontrolled pain Cleanse incision/area with: Keep Dressing Clean & Dry - change wound vac 150 mmHg continuous three times weekly left foot Home Medications: Medications to take at Discharge Gabapentin [Neurontin] 900 mg PO TIDCM 09/20/18 Acetaminophen [Tylenol Tablet] 650 mg PO Q6H PRN PRN #0 tab 06/16/19 atorvastatin 80 mg tablet 80 mg PO QHS #90 tab 11/30/19 clopidogrel 75 mg tablet 75 mg PO DAILY #90 tab 11/30/19 Insulin Lispro [Humalog KwikPen] 20 unit SC TIDCM 08/31/20 Zolpidem Tartrate [Ambien] 5 mg PO QHS PRN PRN 09/01/20 Insulin Glargine [Lantus SoloStar Pen] 35 units SC BID 09/12/20 Insulin Lispro [Humalog KwikPen] See Protocol SC ACHS insuln.pen 09/12/20 Iron Polysaccharide Complex [Ferrex 150] 150 mg PO DAILYCM 09/12/20 Isosorbide Mononitrate [Isosorbide Mononitrate ER] 30 mg PO DAILY 09/12/20 Oxycodone [Oxyir] 5 mg PO Q4H PRN PRN 2 Days #10 tab 09/12/20 Paroxetine [Paxil] 20 mg PO QHS 09/12/20 Pramipexole Di-HCl [Mirapex] 1.5 mg PO BID 09/12/20 Psyllium [Metamucil] 1 packet PO DAILY PRN PRN packet 09/12/20 Senna/Docusate Sodium [Senokot-S] 2 tab PO BID PRN PRN tab 09/12/20 Smz/Tmp Ds [Bactrim Ds] 1 tab PO BID 09/12/20 Following Prescriptions Were Given to Patient: Oxycodone [Oxyir] 5 mg PO Q4H PRN PRN 2 Days #10 tab PRN Reason: Pain Score 6-10 Transmission Status: Received by [id number] Primary Care Physician: Raúl Eric MD [Primary Care Provider] - Please follow up with your Primary Care Physician in: in 1-2 weeks Please Follow Up With: Wandy Lam MANAGER WOMEN, MANAGER WOMEN-C Please Follow Up With: Clinic,Wound When: 1 week. [facility] sooner if concerns [phone] Please Follow Up With: Kike Tello MD When: prn for antibiotic issues/left fppt ulcer Medical Necessity - Tobacco Use Smoking Status: Never smoker Tobacco Use: Non-smoker Meaningful Use Info Meaningful Use Diagnoses (Choose all that apply): None applicable Inpatient E&M: 18762 Disch Hosp
--- NOTE | 2020-09-12 12:36 | CASEMGMT ---
KELSIE IRELAND NOTE: Call placed to [facility] and spoke w/[employer]. She was notified pt is being discharged to TCU today. C referral cancelled. Delta MANLEY RN CM
--- NOTE | 2020-09-12 12:54 | NURSING ---
Report called to nurse Alba for pt transfer to TCU.
== END 2020-09-12 13:24 | disposition skilled nursing facility (03) | DRG 623 ==
LOC: ED 20:31 → PCU 21:53
PROVIDERS: Anesthesiology; Nurse Practitioner Family; Podiatrist; Admitting Provider Family Medicine; Emergency Provider Emergency Medicine; PCP Family Medicine; Referring Provider Family Medicine; Visit Provider Internal Medicine
PROC: 0JBR0ZZ Excision of Left Foot Subcutaneous Tissue and Fascia, Open Approach (ICD-10-PCS; principal; 2020-09-08 12:45)
DX: E11.621 Type 2 diabetes mellitus with foot ulcer (principal); L97.423 Non-pressure chronic ulcer of left heel and midfoot with necrosis of muscle; L97.312 Non-pressure chronic ulcer of right ankle with fat layer exposed; D62 Acute posthemorrhagic anemia; L03.116 Cellulitis of left lower limb; L02.612 Cutaneous abscess of left foot; E11.628 Type 2 diabetes mellitus with other skin complications; B96.89 Other specified bacterial agents as the cause of diseases classified elsewhere; B95.61 Methicillin susceptible Staphylococcus aureus infection as the cause of diseases classified elsewhere; E11.622 Type 2 diabetes mellitus with other skin ulcer; N17.9 Acute kidney failure, unspecified; M94.0 Chondrocostal junction syndrome [Tietze]; I49.3 Ventricular premature depolarization; I25.5 Ischemic cardiomyopathy; I12.9 Hypertensive chronic kidney disease with stage 1 through stage 4 chronic kidney disease, or unspecified chronic kidney disease; E11.22 Type 2 diabetes mellitus with diabetic chronic kidney disease; N18.30 Chronic kidney disease, stage 3 unspecified; E11.42 Type 2 diabetes mellitus with diabetic polyneuropathy; E11.610 Type 2 diabetes mellitus with diabetic neuropathic arthropathy; E11.65 Type 2 diabetes mellitus with hyperglycemia; H53.8 Other visual disturbances; E11.319 Type 2 diabetes mellitus with unspecified diabetic retinopathy without macular edema; D50.9 Iron deficiency anemia, unspecified; D63.8 Anemia in other chronic diseases classified elsewhere; I25.10 Atherosclerotic heart disease of native coronary artery without angina pectoris; I10 Essential (primary) hypertension; E78.5 Hyperlipidemia, unspecified; G25.81 Restless legs syndrome; F32.9 Major depressive disorder, single episode, unspecified; F41.9 Anxiety disorder, unspecified; K21.9 Gastro-esophageal reflux disease without esophagitis; E66.09 Other obesity due to excess calories; Z68.32 Body mass index [BMI] 32.0-32.9, adult; Z23 Encounter for immunization; Z79.4 Long term (current) use of insulin; Z79.02 Long term (current) use of antithrombotics/antiplatelets; Z79.899 Other long term (current) drug therapy; I25.2 Old myocardial infarction; Z95.5 Presence of coronary angioplasty implant and graft
CPT/HCPCS: 36415; 71045; 71275; 73630; 73718; 78452; 80048; 80053; 80061; 80202; 82962; 83036; 83735; 84484; 85014; 85018; 85025; 85027; 85379; 86850; 86900; 86901; 86920; 86922; 87070; 87077; 87186; 87205; 87635; 87640; 88304; 88312; 93005; 93017; 93306; 93923; 93971; 97110; 97116; 97162; 97166; 97168; 97530; 97535; 97802; 99251; 99285; A9500; G0008; J7030; J7040; J7050; P9016; Q9967; 90686; A4216; G0463; J2405; J2785; U0002

== ENCOUNTER 2020-09-12 13:38 | Inpatient (IN) | payer MEDICARE, MEDICAID, SELFPAY ==
[2018-09-21 13:23] VITALS: BMI 29.3
[2020-09-08 10:11] VITALS: BMI 32.1
[2020-09-12 13:43] VITALS: BP 132/69; PULSE 71; RESP 17; TEMP 36.7; O2SAT 98; BMI 29.7
[2020-09-12 13:53] VITALS: BP 132/69; PULSE 71; RESP 17; TEMP 36.7; O2SAT 98
--- NOTE | 2020-09-12 14:10 | HP.PCM_ITS ---
Problem List (1) Debility Status: Acute (2) Costochondritis Status: Acute (3) Foot ulcer, left Status: Chronic (4) Cellulitis of left foot Status: Acute (5) Coronary artery disease Status: Chronic (6) Hypertension Status: Chronic (7) Diabetic polyneuropathy Status: Chronic (8) GERD (gastroesophageal reflux disease) Status: Chronic (9) Depression Status: Chronic (10) Anxiety Status: Chronic (11) Diabetes mellitus Status: Chronic (12) RLS (restless legs syndrome) Status: Chronic (13) Chest pain Status: Acute Qualifiers: (14) HLD (hyperlipidemia) Status: Chronic Qualifiers: History of Present Illness Date of Admission: 09/12/20 Chief Complaint: Here for rehabilitation, strengthening, prior to discharge home with family. 08/31/20 The patient is a 55 year old Female with below past medical history presented to [facility] Emergency Department with left sided chest pain. 08/31/20 Chest X-ray negative. 08/31/20 EKG normal sinus rhythm, normal EKG. 08/29/20 Echo Normal LV size. EF 55%. Pulmonary artery systolic pressure 30mm HG. 08/31/20 X-ray left foot status post 5th toe amputation, cannot rule out acute osteomyelitis. 08/31/20 CTA chest negative pulmonary embolism. Chest pain x 2 weeks, radiates down back. Worse with exertion, Troponin normal. Aspirin, IV fluids, insulin given. 08/31/20 Admit to Hospital. Rule out MO, stress test in AM. Trend Creatinine for acute kidney injury. Adjust insulin for improved glucose control. 09/01/20 Stress test showed previous anterior myocardial infarct. 09/01/20 Podiatry debrided left foot ulcer, sent cultures, debridement complicated by bleeding, non weight bearing left lower extremity. 09/01/20 RALPH doppler normal. 09/01/20 MRI left mid foot, left foot ulcer, NEGATIVE osteomyelitis. 09/01/20 Doppler left lower extremity NEGATIVE DVT. 09/03/20 Zosyn, Vancomycin for enterobacter, S. Aureus infected left foot ulcer. Transfuse 1 unit PRBC. 09/04/20 Proton pump inhibitor for GERD. Podiatry planning further debridement 09/08/20, Hold Plavix. status post 2 unit PRBC transfusion. 09/05/20 Cultures growing Enterobacter, S. Aureus, S. Haemolyticus, Antibiotics changed to Bactrim. 09/06/20 Chest pain resolved, possible costochondritis. 09/08/20 Podiatry performed left foot ulcer debridement down to fascia layer. 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 09/11/20 Wound VAC left foot ulcer. 09/12/20 Admit to TCU with debility, here for rehabilitation, strengthening, maria fernanda or to discharge home with family. Past Medical History Past Medical History (Chronic Problems): Chronic Problems (This Medical Record has been edited. Action required.) Anemia (Chronic) Anxiety and depression (Chronic) RLS (restless legs syndrome) (Chronic) Uncontrolled type II diabetes mellitus (Chronic) Obesity (Chronic) Foot ulcer, left (Chronic) Coronary artery disease (Chronic) Hypertension (Chronic) Diabetic polyneuropathy (Chronic) GERD (gastroesophageal reflux disease) (Chronic) Depression (Chronic) Anxiety (Chronic) Diabetes mellitus (Chronic) Atherosclerosis of [place] coronary artery of [place] heart without angina pectoris (Chronic) Essential (primary) hypertension (Chronic) HLD (hyperlipidemia) (Chronic) Medical History: Medical History (This Medical Record has been edited. Action required.) Atherosclerosis of [place] coronary artery of [place] heart without angina pectoris (Chronic) I25.10 NSTEMI (non-ST elevated myocardial infarction) (Resolved) Onset Date: 09/20/18 I21.4 Essential (primary) hypertension (Chronic) I10 HLD (hyperlipidemia) (Chronic) E78.5 Abscess of right lower leg L02.415 diabetic ulcer abscess right lateral malleolus Acquired varus deformity of left foot M21.172 Acquired varus deformity of right foot M21.171 Anxiety F41.9 Back pain, chronic M54.9, G89.29 Cellulitis of foot, left L03.116 cellulitis and abscess of the left foot with possible osteomyelitis Chronic renal failure N18.9 Chronic ulcer of left foot with fat layer exposed L97.522 Chronic ulcer of left foot with fat layer exposed L97.522 Chronic ulcer of left foot with necrosis of muscle L97.523 Delayed wound healing T14.8XXD Delayed wound healing T14.8XXD Delayed wound healing T14.8XXD Depression F32.9 Diabetic foot ulcer associated with type 2 diabetes mellitus E11.621, L97.509 Diabetic polyneuropathy E11.42 Stage II?3 Diabetic ulcer of right ankle E11.622, L97.319 diabetic ulcer abscess right lateral malleolus GERD (gastroesophageal reflux disease) K21.9 Hypomagnesemia E83.42 Malnutrition E46 Non-compliance Z91.19 Normocytic anemia D64.9 Obesity (BMI 30.0-34.9) E66.9 Osteomyelitis of left foot M86.9 RLS (restless legs syndrome) Type 2 diabetes mellitus with diabetic polyneuropathy E11.42 Type 2 diabetes mellitus with diabetic polyneuropathy E11.42 Type II diabetes mellitus, uncontrolled E11.65 Ulcer of right foot with fat layer exposed L97.512 distal hallux Ulcer of right lower extremity with fat layer exposed L97.912 Chest pain (Resolved) R07.9 Ischemic cardiomyopathy I25.5 EF 45% Necrotizing soft tissue infection (Resolved) M79.89 Severe sepsis (Resolved) A41.9, R65.20 Hemoglobin A1c greater than 9.0% (Inactive) R73.09 12.2 Allergies Penicillins Allergy (Verified 08/31/20 22:02) Shortness of breath vancomycin Allergy (Verified 08/31/20 22:02) Itching metronidazole Adverse Reaction (Verified 08/31/20 22:02) Nausea OXYCONTIN Allergy (Uncoded 08/31/20 22:02) Shortness of breath Home Medications: Ambulatory Orders Medication Instructions Recorded Gabapentin [Neurontin] 900 mg PO TIDCM 09/20/18 Acetaminophen [Tylenol Tablet] 650 mg PO Q6H PRN PRN #0 tab 06/16/19 atorvastatin 80 mg tablet 80 mg PO QHS #90 tab 11/30/19 clopidogrel 75 mg tablet 75 mg PO DAILY #90 tab 11/30/19 Insulin Lispro [Humalog KwikPen] 20 unit SC TIDCM 08/31/20 Zolpidem Tartrate [Ambien] 5 mg PO QHS PRN PRN 09/01/20 Insulin Glargine [Lantus SoloStar 35 units SC BID 09/12/20 Pen] Insulin Lispro [Humalog KwikPen] See Protocol SC ACHS insuln.pen 09/12/20 Iron Polysaccharide Complex 150 mg PO DAILYCM 09/12/20 [Ferrex 150] Isosorbide Mononitrate [Isosorbide 30 mg PO DAILY 09/12/20 Mononitrate ER] Oxycodone [Oxyir] 5 mg PO Q4H PRN PRN 2 Days #10 tab 09/12/20 Paroxetine [Paxil] 20 mg PO QHS 09/12/20 Pramipexole Di-HCl [Mirapex] 1.5 mg PO BID 09/12/20 Psyllium [Metamucil] 1 packet PO DAILY PRN PRN packet 09/12/20 Senna/Docusate Sodium [Senokot-S] 2 tab PO BID PRN PRN tab 09/12/20 Smz/Tmp Ds [Bactrim Ds] 1 tab PO BID 09/12/20 Surgical History: Surgical History (This Medical Record has been edited. Action required.) History of coronary artery stent placement (Resolved) Onset Date: 09/21/18 Z95.5 PCI-DARA mid LAD w/ 2.25 x 16 mm Promus Synergy, DARA prox LAD w/ 2.5 x 12 mm Promus Synergy 09/21/2018 Surgical History: angioplasty - with stent., - - Severel R foot toe amputations and I+Ds, BL carpal tunnel surgery 1994, right shoulder surgery in 1994, section x2, most recently LLE I+D, Left foot ulcer debridement. Psychiatric History: Anxiety, Depression OPERATIONS SPECIALIST History: No pertinent OPERATIONS SPECIALIST history Lives: With Family - Daughter. Smoking Status: Never smoker Tobacco Use: Non-smoker Alcohol: None Drugs: None - *Family History Paternal History Items: - - Patient states her father when she was 5 years old, denies known medical history, denies known cardiac history. Maternal History Items: Cancer - Patient had a brother who had testicular cancer; and later cancer in his stomach., Diabetes, Hypertension, - - Her mother at the age of 67 to a blood clot to the brain. She had had multiple strokes preceding that. Patient had 3 brothers who had bypass surgery in their 50s. Sibling History Items: - - She has one brother who is secondary to cancer and she does not know what kind of cancer he had. She also has 3 brothers with a history of cardiovascular disease, stents and coronary artery bypass grafting. Review of Systems Constitutional: Denies: Chills, Fever, Weight Change HEENT: Denies: Head Aches, Sinus Congestion, Sinus Drainage Cardiovascular: Denies: Chest Pain, Palpitations Respiratory: Denies: Cough, Shortness of breath at rest, Sputum production Gastrointestinal: Denies: Abdominal Pain, Nausea, Vomiting Genitourinary: Denies: Dysuria Musculoskeletal: Denies: Joint Pain, Joint Tenderness Skin: Denies: Rash, Wounds Neurological: Denies: Numbness, Tingling, Focal weakness Psychiatric: Denies: Anxiety, Depression, Homicidal Ideations, Suicidal Ideations Hematologic/ Lymphatic: Denies: Easy Bruising, Easy Bleeding VTE Information - Inpt Only VTE Present on Admission: No VTE Mechan Device Prophylaxis: Knee High ROCIO Hose VTE Pharm Prophylaxis ordered?: No Reason prophylaxis not ordered:: Medical Contraindication Patient Problems: Active and Suspected Problems (This Medical Record has been edited. Action required.) Chest pain (Acute) Debility (Acute) Costochondritis (Acute) Cellulitis of left foot (Acute) - Physical Exam Vitals/I&O's: Vital Signs Temp Pulse Resp BP Pulse Ox 98.1 F 71 17 132/69 H 98 09/12/20 13:53 09/12/20 13:53 09/12/20 13:53 09/12/20 13:53 09/12/20 13:53 Oxygen Delivery Method Room Air Body Mass Index (BMI) 32.1 Finger Stick Blood Glucose 95 General: Alert, Oriented x3, Cooperative HEENT: Atraumatic, PERRLA, EOMI, Normocephalic Neck: Supple, No JVD, Negative Carotid Bruits Lungs: Clear to auscultation, Normal air movement Cardiovascular: Regular rate, No murmurs Abdomen: Bowel Sounds Present, Soft, Non Tender Extremities: No edema, Capillary Refill Less than 3 Seconds, - - Left foot MYLA wrap, wound VAC. Skin: No rashes, No breakdown Musculoskeletal: No Tenderness to Palpation of Joints or Extremities Neurological: Cranial nerves II-XII grossly intact Psych/Mental Status: Normal Affect, Appropriate Current Medications Acetaminophen (Acetaminophen 325 Mg Tablet) 650 mg PO Q6H PRN PRN PRN Reason: Mild Pain (1-3)/Temp > 100.7 F Atorvastatin Calcium (Atorvastatin Calcium 80 Mg Tablet) 80 mg PO QHS [facility] Clopidogrel Bisulfate (Clopidogrel Bisulfate 75 Mg Tablet) 75 mg PO DAILY [facility] Gabapentin (Gabapentin 800 Mg Tablet) 900 mg PO TIDCM [facility] Insulin Glargine (Insulin Glargine 100 Units/Ml Pen) 35 units SC BID [facility] Insulin Human Lispro (Insulin Lispro 100 Unit/Ml Insuln.Pen) 20 unit SC TIDCM [facility] Isosorbide Mononitrate (Isosorbide Mononitrate 30 Mg Tablet) 30 mg PO DAILY [facility] Oxycodone HCl (Oxycodone 5 Mg Tablet) 5 mg PO Q4H PRN PRN PRN Reason: Pain Score 6-10 Paroxetine HCl (Paroxetine 20 Mg Tablet) 20 mg PO QHS [facility] Polysaccharide Iron Complex (Iron Polysaccharide Complex 150 Mg Capsule) [facility] Pramipexole Dihydrochloride (Pramipexole Di-Hcl 1 Mg Tablet) 1.5 mg PO BID [facility] Psyllium Hydrophilic Mucilloid (Psyllium 1 Packet) 1 packet PO DAILY PRN PRN PRN Reason: Constipation Senna/Docusate Sodium (Senna/Docusate Sodium 1 Tablet) tablet PO BID PRN PRN PRN Reason: Constipation Trimethoprim/Sulfamethoxazole (Smz/Tmp Ds Tablet) tablet PO BID [facility] Stop: 09/18/20 22:00 Zolpidem Tartrate (Zolpidem Tartrate 5 Mg Tablet) 5 mg PO QHS PRN PRN PRN Reason: INSOMNIA Assessment/Plan All Active Problems (This Medical Record has been edited. Action required.) Diabetic infection of left foot (Acute) Chest pain (Acute) Debility (Acute) Costochondritis (Acute) Cellulitis of left foot (Acute) NSTEMI (non-ST elevated myocardial infarction) (Resolved 09/20/18) History of coronary artery stent placement (Resolved 09/21/18) Abscess of left foot (Resolved) Cellulitis of left foot (Resolved) Chest pain (Resolved) Diabetic foot infection (Resolved) Diarrhea (Resolved) Enteritis, Yersinia enterocolitica (Resolved) Hyperglycemia (Resolved) Intractable nausea and vomiting (Resolved) Malnutrition (Resolved) Necrotizing soft tissue infection (Resolved) Severe sepsis (Resolved) 55 year old female with below past medical history hospitalized for chest pain, ruled out for myocardial infarction, complicated by infected left foot ulcer requiring debridement, admitted to TCU with debility, here for rehabilitation, strengthening, prior to discharge home with family. * Debility - PT/OT. * Pain - Tylenol 1000MG Q6H PRN pain (1-5), Oxycodone 5MG Q4H PRN pain (6-10). * Bowel - Miralax 17GM daily, Senna/colace 1 tablet BID, MOM 30ML daily PRN, Dulcolax 10MG OK daily PRN. * Adult immunization - Administer Prevnar 13, Pneumovax 23, Fluzone as appropriate. * DVT prophylaxis - Hold, recent bleeding. * Hyperlipidemia - Atorvastatin 80MG QHS. * Coronary Artery Disease - Isosorbide [place] 30MG daily, Plavix 75MG daily. * Diabetic polyneuropathy - Gabapentin 900MG TID. * Diabetes Mellitus II - Lantus 35 units BID, Humalog 20 units TIDCM. * Iron deficiency anemia - Ferrex 150MG daily. * Nutrition - Ted 1 packet BID. * Depression - Paroxetine 20MG QHS, stable chronic mcfp use, GDR not recommended. * Restless Leg syndrome - Mirapex 1.5MG BID. * Left foot ulcer infection - Bactrim DS 1 tablet BID thru 09/18/20. * Insomnia - Zolpidem 5MG QHS PRN, stable chronic mcfp use, GDR not recommended.
--- NOTE | 2020-09-12 15:50 | CASEMGMT ---
Social Work Met with patient for initial assessment. Pt confirmed full code for code status. Pt is NWBS on left foot with wound vac. Pt reports to being in [place] for the last 8 months with her and returned one day until she admitted to the ED. She reports to her home having the electric shut off since she did [place]. Pt reports her utilizing [employer] to get assistance to pay for electric bill. SW offered to assist, but needs personal documents from home to submit. Which her dtr would need to assist her with, but isn't always reliable. Pt states the DC plan is for her to DC to dtr's house until she can get her electric restored. However, her dtr's house has a steep entry way, with several steps, and would need to go to the 2nd floor for her bedroom and bathroom. Pt's home is one floor with 2 steps to enter. Encouraged pt to get electric restored while in TCU to return to her own home as it seems to be better architecturally for her current medical state. Explained Critical access [facility] insurance with [employer] 09/15 and continued stay is not guaranteed each review date. Pt expressed understanding. Pt reports her mood is stable but doesn't enjoy being alone in the room, so she may decline. Offered SW assistance and not notify nursing for possible med increase if needed. Pt appreciative. Will continue to follow. MARTIN Almodovar
[2020-09-12 17:16] LABS: Bedside Glucose 223 mg/dL (70-110)
[2020-09-12] MEDS: Gabapentin 300 MG Capsule 900 MG PO (18:05)
[2020-09-12] MEDS: Smz/Tmp Ds Tablet 1 TABLET PO (18:06)
[2020-09-12] MEDS: Senna/Docusate Sodium 1 Tablet PO (18:14)
[2020-09-12] MEDS: Insulin Lispro 100 UNIT/ML INSULN.PEN 20 UNIT SC (18:14)
[2020-09-12] MEDS: oxyCODONE 5 MG Tablet PO (20:38)
[2020-09-12] MEDS: Paroxetine 20 MG Tablet PO (20:43)
[2020-09-12] MEDS: Pramipexole Di-HCl 1 MG Tablet 3 MG PO (20:44)
[2020-09-12] MEDS: Atorvastatin Calcium 80 MG Tablet PO (20:45)
[2020-09-12] MEDS: Nystatin Powder 15gm Bottle 1 APPLIC TOPICAL (20:45)
[2020-09-12 21:51] LABS: Bedside Glucose 241 mg/dL (70-110)
[2020-09-12] MEDS: Zolpidem Tartrate 5 MG Tablet PO (22:43)
[2020-09-13 06:00] VITALS: BP 144/72; PULSE 73; RESP 18; TEMP 36.7; O2SAT 96
[2020-09-13] MEDS: Isosorbide Mononitrate 30 MG Tablet PO (06:01)
[2020-09-13] MEDS: Clopidogrel Bisulfate 75 MG Tablet PO (06:02)
[2020-09-13] MEDS: Polyethylene Glycol 3350 17 GM PACKET PO (06:02)
[2020-09-13] MEDS: Nystatin Powder 15gm Bottle 1 APPLIC TOPICAL ×2 (06:03→19:57)
[2020-09-13] MEDS: Senna/Docusate Sodium 1 Tablet PO ×2 (06:04→16:58)
[2020-09-13 06:25] LABS: Bedside Glucose 279 mg/dL (70-110)
[2020-09-13] MEDS: Insulin Lispro 100 UNIT/ML INSULN.PEN 20 UNIT SC ×3 (08:25→17:01)
[2020-09-13] MEDS: Smz/Tmp Ds Tablet 1 TABLET PO ×2 (08:26→16:57)
[2020-09-13] MEDS: Iron Polysaccharide Complex 150 MG CAPSULE PO (08:26)
[2020-09-13] MEDS: Gabapentin 300 MG Capsule 900 MG PO ×3 (08:26→16:58)
[2020-09-13 08:43] LABS: Absolute Neutrophil Count 6.7 X10^3/uL (2.0-7.7); Basophil# 0.05 X10^3/uL; Basophil% 0.6 % (0-1); Eosinophil# 0.19 X10^3/uL; Eosinophils% 2.2 % (0-5); Hematocrit 32.9 % (37-47); Hemoglobin 10.5 g/dL (12.0-15.0); Mean Corp Hgb Conc 31.9 g/dL (32-36); Mean Corpuscular Hgb 28.5 pg (27.0-32.0); Mean Corpuscular Volume 89.4 fL (81-99); Mean Platelet Vol. 10.8 fl (6.2-12.0); Monocyte% 4.6 % (0-10); NRBC Flagged by Analyzer 0 % (0-5); Neutrophil # 6.69 X10^3/uL (2.7-7.7); Neutrophil % 76.4 % (47-70); Platelet Count 413 K/mm3 (150-450); RBC Distribution Width CV 13.2 % (11.6-14.6); RBC Distribution Width SD 43.3 fl (35.1-43.9); Red Blood Count 3.68 M/mm3 (4.2-5.4); White Blood Count 8.8 K/mm3 (4.4-11.0)
[2020-09-13 08:47] LABS: Anion Gap 7 (5-15); BUN 44 mg/dL (7-18); BUN/Creat Ratio 26.8 RATIO (10-20); Calcium,Total 9.4 mg/dL (8.5-10.1); Chloride 110 mmol/L (98-107); Creatinine, Serum 1.64 mg/dL (0.55-1.02); EST Glomerular Filtration Rate 35 mL/min (>60); Est Glom Filt Rate - Afr Amer 42 mL/min (>60); Estimated Creatinine Clearance 36.28 ml/min; Glucose 248 mg/dL (74-106); Sodium Level 136 mmol/L (136-145)
[2020-09-13] MEDS: Glucerna Shake 120 ML LIQUID PO ×2 (11:49→17:00)
[2020-09-13] MEDS: Tuberculin,Purif.prot.deriv. 50 TU/ML Vial 5 ML ID (11:50)
[2020-09-13 12:00] LABS: Bedside Glucose 159 mg/dL (70-110)
[2020-09-13 13:16] VITALS: BP 143/69; PULSE 83; RESP 18; TEMP 36.7; O2SAT 95
[2020-09-13 16:36] LABS: Bedside Glucose 190 mg/dL (70-110)
[2020-09-13] MEDS: Paroxetine 20 MG Tablet PO (19:56)
[2020-09-13] MEDS: oxyCODONE 5 MG Tablet PO (19:56)
[2020-09-13] MEDS: Atorvastatin Calcium 80 MG Tablet PO (19:56)
[2020-09-13 21:06] LABS: Bedside Glucose 135 mg/dL (70-110)
[2020-09-13] MEDS: Zolpidem Tartrate 5 MG Tablet PO (21:25)
[2020-09-13] MEDS: Pramipexole Di-HCl 1 MG Tablet 3 MG PO (21:25)
[2020-09-14] MEDS: Polyethylene Glycol 3350 17 GM PACKET PO (05:37)
[2020-09-14] MEDS: Isosorbide Mononitrate 30 MG Tablet PO (05:38)
[2020-09-14] MEDS: Senna/Docusate Sodium 1 Tablet PO ×2 (05:38→17:13)
[2020-09-14] MEDS: Clopidogrel Bisulfate 75 MG Tablet PO (05:38)
[2020-09-14] MEDS: Nystatin Powder 15gm Bottle 1 APPLIC TOPICAL ×2 (05:39→21:10)
[2020-09-14 05:40] VITALS: BP 152/90; PULSE 79; RESP 16; TEMP 37; O2SAT 98
[2020-09-14 06:25] LABS: Bedside Glucose 188 mg/dL (70-110)
[2020-09-14] MEDS: Iron Polysaccharide Complex 150 MG CAPSULE PO (08:03)
[2020-09-14] MEDS: Smz/Tmp Ds Tablet 1 TABLET PO ×2 (08:03→17:13)
[2020-09-14] MEDS: Gabapentin 300 MG Capsule 900 MG PO ×3 (08:03→17:14)
[2020-09-14] MEDS: Insulin Lispro 100 UNIT/ML INSULN.PEN 20 UNIT SC ×3 (08:03→17:12)
[2020-09-14 10:00] VITALS: PULSE 83; RESP 16; O2SAT 98
[2020-09-14 11:10] LABS: Bedside Glucose 182 mg/dL (70-110)
[2020-09-14] MEDS: Glucerna Shake 120 ML LIQUID PO ×2 (11:47→17:12)
[2020-09-14 13:53] VITALS: BP 141/68; PULSE 85; RESP 16; TEMP 36.4; O2SAT 94
[2020-09-14 16:46] LABS: Bedside Glucose 138 mg/dL (70-110)
[2020-09-14] MEDS: Atorvastatin Calcium 80 MG Tablet PO (21:09)
[2020-09-14] MEDS: Paroxetine 20 MG Tablet PO (21:09)
[2020-09-14] MEDS: Pramipexole Di-HCl 1 MG Tablet 3 MG PO ×2 (21:10→21:15)
[2020-09-14] MEDS: Zolpidem Tartrate 5 MG Tablet PO (21:15)
[2020-09-14 21:55] LABS: Bedside Glucose 162 mg/dL (70-110)
[2020-09-14] MEDS: oxyCODONE 5 MG Tablet PO (22:02)
[2020-09-15 05:24] VITALS: BP 128/64; PULSE 75; RESP 18; TEMP 36.9; O2SAT 97
[2020-09-15] MEDS: Clopidogrel Bisulfate 75 MG Tablet PO (05:28)
[2020-09-15] MEDS: Isosorbide Mononitrate 30 MG Tablet PO (05:28)
[2020-09-15] MEDS: Nystatin Powder 15gm Bottle 1 APPLIC TOPICAL ×2 (05:28→19:35)
[2020-09-15] MEDS: Polyethylene Glycol 3350 17 GM PACKET PO (05:28)
[2020-09-15] MEDS: Senna/Docusate Sodium 1 Tablet PO (05:28)
[2020-09-15 06:36] LABS: Bedside Glucose 169 mg/dL (70-110)
[2020-09-15] MEDS: Smz/Tmp Ds Tablet 1 TABLET PO ×2 (08:51→17:51)
[2020-09-15] MEDS: Iron Polysaccharide Complex 150 MG CAPSULE PO (08:51)
[2020-09-15] MEDS: Gabapentin 300 MG Capsule 900 MG PO ×3 (08:51→17:52)
[2020-09-15] MEDS: Insulin Lispro 100 UNIT/ML INSULN.PEN 20 UNIT SC ×3 (08:51→17:53)
[2020-09-15] MEDS: Glucerna Shake 120 ML LIQUID PO ×3 (08:55→18:00)
[2020-09-15 10:51] LABS: Bedside Glucose 157 mg/dL (70-110)
[2020-09-15 11:15] VITALS: BP 122/63; BP 126/60; BP 79/52; PULSE 89
--- NOTE | 2020-09-15 11:18 | NURSING ---
therapy reported pt c/o dizziness when standing. orthos done. will update Dr castellon.
[2020-09-15] MEDS: oxyCODONE 5 MG Tablet PO ×2 (13:43→19:35)
[2020-09-15 14:28] VITALS: BP 136/66; PULSE 68; RESP 16; TEMP 36.4; O2SAT 97
--- NOTE | 2020-09-15 15:03 | PHA.CONS_ITS ---
<Kira Ba - Last Filed: 09/15/20 15:03> Progress Note - Pharmacy Subjective: TCU Admission Objective: Allergies Penicillins Allergy (Verified 08/31/20 22:02) Shortness of breath vancomycin Allergy (Verified 08/31/20 22:02) Itching metronidazole Adverse Reaction (Verified 08/31/20 22:02) Nausea OXYCONTIN Allergy (Uncoded 08/31/20 22:02) Shortness of breath Current Medications Generic Name Dose Route Start Last Admin Trade Name Freq PRN Reason Stop Dose Admin Acetaminophen 1,000 mg 09/12/20 15:07 Acetaminophen 500 Mg Tablet PO Q6H PRN PRN Pain Score 1-5 Atorvastatin Calcium 80 mg 09/12/20 22:00 09/14/20 21:09 Atorvastatin Calcium 80 Mg Tablet PO 80 mg QHS [facility] Administration Bisacodyl 10 mg 09/12/20 14:45 Bisacodyl 10 Mg Suppository RECTAL DAILY PRN Constipation Clopidogrel Bisulfate 75 mg 09/13/20 06:00 09/15/20 05:28 Clopidogrel Bisulfate 75 Mg Tablet PO 75 mg DAILY [facility] Administration Gabapentin 900 mg 09/12/20 17:45 09/15/20 13:44 Gabapentin 300 Mg Capsule PO 900 mg TIDCM [facility] Administration Insulin Glargine 35 units 09/12/20 18:00 09/15/20 06:34 Insulin Glargine 100 Units/Ml Pen SC 35 units BID TAB Administration Insulin Human Lispro 20 unit 09/12/20 17:45 09/15/20 13:43 Insulin Lispro 100 Unit/Ml Insuln.Pen SC 20 units TIDCM [facility] Administration Isosorbide Mononitrate 30 mg 09/13/20 06:00 09/15/20 05:28 Isosorbide Mononitrate 30 Mg Tablet PO 30 mg DAILY [facility] Administration Magnesium Hydroxide 30 ml 09/12/20 14:45 Magnesium Hydroxide 30 Ml Udc PO DAILY PRN Constipation Multi-Ingredient Cream 1 applic 09/12/20 22:00 09/15/20 05:29 Mineral Oil/Petrolatum,White Jar TOPICAL 1 applicatio 0600,2200 [facility] Administration Protocol Nutritional Formula 1 packet 09/12/20 17:00 09/15/20 08:53 Nutritional Supplement (Ted) Packet PO Not Given BIDCM [facility] Nutritional Formula (Lactose Free) 120 ml 09/13/20 12:45 09/15/20 13:44 Glucerna Shake 120 Ml Liquid PO 120 ml TIDCM TAB Administration Nystatin 1 applic 09/12/20 22:00 09/15/20 05:28 Nystatin Powder 15gm Bottle TOPICAL 1 applicatio 0600,2200 TAB Administration Protocol Oxycodone HCl 5 mg 09/12/20 13:53 09/15/20 13:43 Oxycodone 5 Mg Tablet PO 5 mg Q4H PRN PRN Administration Pain Score 6-10 Paroxetine HCl 20 mg 09/12/20 22:00 09/14/20 21:09 Paroxetine 20 Mg Tablet PO 20 mg QHS TAB Administration Polyethylene Glycol 17 gm 09/13/20 06:00 09/15/20 05:28 Polyethylene Glycol 3350 17 Gm Packet PO 17 gm DAILY TAB Administration Polysaccharide Iron Complex 150 mg 09/13/20 08:00 09/15/20 08:51 Iron Polysaccharide Complex 150 Mg Capsule PO 150 mg DAILYCM [facility] Administration Pramipexole Dihydrochloride 3 mg 09/12/20 22:00 09/14/20 21:15 Pramipexole Di-Hcl 1 Mg Tablet PO 3 mg QHS TAB Administration Senna/Docusate Sodium 1 tablet 09/12/20 18:00 09/15/20 05:28 Senna/Docusate Sodium 1 Tablet PO 1 tablet BID TAB Administration Trimethoprim/Sulfamethoxazole 1 tablet 09/12/20 17:00 09/15/20 08:51 Smz/Tmp Ds Tablet PO 09/18/20 17:01 1 tablet BIDCM [facility] Administration Tuberculin PPD 5 tu 09/20/20 10:00 Tuberculin,Purif.Prot.Deriv. 50 Tu/Ml Vial ID 09/20/20 10:01 X1 ONE Zolpidem Tartrate 5 mg 09/12/20 13:53 09/14/20 21:15 Zolpidem Tartrate 5 Mg Tablet PO 5 mg QHS PRN PRN Administration INSOMNIA Problem List (This Medical Record has been edited. Action required.) RLS (restless legs syndrome) (Chronic) Chest pain (Acute) Debility (Acute) Costochondritis (Acute) Foot ulcer, left (Chronic) Cellulitis of left foot (Acute) Coronary artery disease (Chronic) Hypertension (Chronic) Diabetic polyneuropathy (Chronic) GERD (gastroesophageal reflux disease) (Chronic) Depression (Chronic) Anxiety (Chronic) Diabetes mellitus (Chronic) HLD (hyperlipidemia) (Chronic) Vital Signs Temp Pulse Resp BP Pulse Ox 97.6 F L 68 16 136/66 H 97 09/15/20 14:28 09/15/20 14:28 09/15/20 14:28 09/15/20 14:28 09/15/20 14:28 Oxygen Delivery Method Room Air Weight: 83.631 kg Body Mass Index (BMI) 29.7 Finger Stick Blood Glucose 95 Orthostatic Vital Signs Start: 09/15/20 11:15 Freq: q24h Status: Active Protocol: Activity Type Activity Date Activity User E-Sign Co-Sign Detail Recorded Client Recorded Date Recorded By Document 09/15/20 11:15 MAL [id number] 09/15/20 11:17 MAL 09/15/20 11:15 Orthostatic Vitals Standing -Blood Pressure (90/60-120/80) 79/52 L -Extremity Use Right Arm -Pulse Rate (60-100) 89 Sitting -Blood Pressure (90/60-120/80) 122/63 H -Extremity Use Right Arm -Pulse Rate (60-100) 89 Lying -Blood Pressure (90/60-120/80) 126/60 H -Extremity Use Right Arm -Pulse Rate (60-100) 89 Sodium 136 mmol/L (136-145) 09/13/20 07:33 Potassium 5.0 mmol/L (3.5-5.1) 09/13/20 07:33 Chloride 110 mmol/L (98-107) H 09/13/20 07:33 Carbon Dioxide 19.0 mmol/L (21.0-32.0) L 09/13/20 07:33 Anion Gap 7 (5-15) 09/13/20 07:33 BUN 44 mg/dL (7-18) H 09/13/20 07:33 Creatinine 1.64 mg/dL (0.55-1.02) H 09/13/20 07:33 Est GFR (MDRD) Af Amer 42 mL/min (>60) L 09/13/20 07:33 Est GFR (MDRD) Non-Af 35 mL/min (>60) L 09/13/20 07:33 BUN/Creatinine Ratio 26.8 RATIO (10-20) H 09/13/20 07:33 Glucose 248 mg/dL (74-106) H 09/13/20 07:33 Assessment/Plan: 1. Pain: acetaminophen 1000mg PO Q6H PRN pain 1-02/16 and oxycodone 5mg PO Q4H PRN pain 6-07/19. Please continue to monitor for S/S of increased pain, PRN usage, constipation and respiratory depression. 2. Left foot ulcer infection: Bactrim DS 1T PO BID thru 09/18/20. Please continue to monitor for S/S of infection, renal function, and potassium (last 5mmol/L). 3. Hyperlipidemia: atorvastatin 80mg PO QHS. Please continue to monitor for muscle pain and lipid panel. 4. CAD: clopidogrel 75mg PO daily and isosorbide mononitrate 30mg PO daily. Please continue to monitor for S/S of bleeding, BP, and chest pain. 5. Diabetes mellitus type II/diabetic neuropathy: insulin glargine 35units SC BID, insulin lispro 20units SC TIDCM, gabapentin 900mg PO TIDCM. Please continue to monitor hemoglobin A1c, POC glucose (last 157), renal function, confusion, S/S of hypoglycemia. 6. Iron deficiency anemia: Ferrex 150mg PO DAILYCM. Please continue to monitor hemoglobin and for dark stools. 7. Restless leg syndrome: pramipexole 3mg PO QHS. Please continue to monitor for RLS. Psychotropic Medications: 1. Depression: paroxetine 20mg PO QHS. Please see physician note regarding GDR. Thanks. 2. Insomnia: zolpidem 5mg PO QHS PRN insomnia. Please see physician note regarding GDR. Thanks. Unnecessary Medications: None Bowel Regimen: Miralax 17gm PO daily, senna/docusate 1T PO BID, MOM 30mL PO daily PRN constipation, and bisacodyl 10mg [place] daily PRN constipation. Please continue to monitor for S/S of constipation and PRN usage. Date of Note:: 09/15/20 - Provider Comments Provider responsibility: Provider responsible to enter orders to implement recommendations <Chauncey Hassan Chi - Last Filed: 09/15/20 17:35> Progress Note - Pharmacy Subjective: [] Objective: Allergies Penicillins Allergy (Verified 08/31/20 22:02) Shortness of breath vancomycin Allergy (Verified 08/31/20 22:02) Itching metronidazole Adverse Reaction (Verified 08/31/20 22:02) Nausea OXYCONTIN Allergy (Uncoded 08/31/20 22:02) Shortness of breath Current Medications Generic Name Dose Route Start Last Admin Trade Name Freq PRN Reason Stop Dose Admin Acetaminophen 1,000 mg 09/12/20 15:07 Acetaminophen 500 Mg Tablet PO Q6H PRN PRN Pain Score 1-5 Atorvastatin Calcium 80 mg 09/12/20 22:00 09/14/20 21:09 Atorvastatin Calcium 80 Mg Tablet PO 80 mg QHS TAB Administration Bisacodyl 10 mg 09/12/20 14:45 Bisacodyl 10 Mg Suppository RECTAL DAILY PRN Constipation Clopidogrel Bisulfate 75 mg 09/13/20 06:00 09/15/20 05:28 Clopidogrel Bisulfate 75 Mg Tablet PO 75 mg DAILY TAB Administration Gabapentin 900 mg 09/12/20 17:45 09/15/20 13:44 Gabapentin 300 Mg Capsule PO 900 mg TIDCM TAB Administration Insulin Glargine 35 units 09/12/20 18:00 09/15/20 06:34 Insulin Glargine 100 Units/Ml Pen SC 35 units BID TAB Administration Insulin Human Lispro 20 unit 09/12/20 17:45 09/15/20 13:43 Insulin Lispro 100 Unit/Ml Insuln.Pen SC 20 units TIDCM TAB Administration Isosorbide Mononitrate 30 mg 09/13/20 06:00 09/15/20 05:28 Isosorbide Mononitrate 30 Mg Tablet PO 30 mg DAILY TAB Administration Magnesium Hydroxide 30 ml 09/12/20 14:45 Magnesium Hydroxide 30 Ml Udc PO DAILY PRN Constipation Multi-Ingredient Cream 1 applic 09/12/20 22:00 09/15/20 05:29 Mineral Oil/Petrolatum,White Jar TOPICAL 1 applicatio 0600,2200 [facility] Administration Protocol Nutritional Formula 1 packet 09/12/20 17:00 09/15/20 08:53 Nutritional Supplement (Ted) Packet PO Not Given BIDCM [facility] Nutritional Formula (Lactose Free) 120 ml 09/13/20 12:45 09/15/20 13:44 Glucerna Shake 120 Ml Liquid PO 120 ml TIDCM [facility] Administration Nystatin 1 applic 09/12/20 22:00 09/15/20 05:28 Nystatin Powder 15gm Bottle TOPICAL 1 applicatio 0600,2200 TAB Administration Protocol Oxycodone HCl 5 mg 09/12/20 13:53 09/15/20 13:43 Oxycodone 5 Mg Tablet PO 5 mg Q4H PRN PRN Administration Pain Score 6-10 Paroxetine HCl 20 mg 09/12/20 22:00 09/14/20 21:09 Paroxetine 20 Mg Tablet PO 20 mg QHS TAB Administration Polyethylene Glycol 17 gm 09/13/20 06:00 09/15/20 05:28 Polyethylene Glycol 3350 17 Gm Packet PO 17 gm DAILY TAB Administration Polysaccharide Iron Complex 150 mg 09/13/20 08:00 09/15/20 08:51 Iron Polysaccharide Complex 150 Mg Capsule PO 150 mg DAILYCM [facility] Administration Pramipexole Dihydrochloride 3 mg 09/12/20 22:00 09/14/20 21:15 Pramipexole Di-Hcl 1 Mg Tablet PO 3 mg QHS [facility] Administration Senna/Docusate Sodium 1 tablet 09/12/20 18:00 09/15/20 05:28 Senna/Docusate Sodium 1 Tablet PO 1 tablet BID TAB Administration Trimethoprim/Sulfamethoxazole 1 tablet 09/12/20 17:00 09/15/20 08:51 Smz/Tmp Ds Tablet PO 09/18/20 17:01 [facility] Administration Tuberculin PPD 5 tu 09/20/20 10:00 Tuberculin,Purif.Prot.Deriv. 50 Tu/Ml Vial ID 09/20/20 10:01 X1 ONE Zolpidem Tartrate 5 mg 09/12/20 13:53 09/14/20 21:15 Zolpidem Tartrate 5 Mg Tablet PO 5 mg QHS PRN PRN Administration INSOMNIA Problem List (This Medical Record has been edited. Action required.) RLS (restless legs syndrome) (Chronic) Chest pain (Acute) Debility (Acute) Costochondritis (Acute) Foot ulcer, left (Chronic) Cellulitis of left foot (Acute) Coronary artery disease (Chronic) Hypertension (Chronic) Diabetic polyneuropathy (Chronic) GERD (gastroesophageal reflux disease) (Chronic) Depression (Chronic) Anxiety (Chronic) Diabetes mellitus (Chronic) HLD (hyperlipidemia) (Chronic) Vital Signs Temp Pulse Resp BP Pulse Ox 97.6 F L 68 16 136/66 H 97 12/07/20 14:28 09/15/20 14:28 09/15/20 14:28 09/15/20 14:28 09/15/20 14:28 Oxygen Delivery Method Room Air Weight: 83.631 kg Body Mass Index (BMI) 29.7 Finger Stick Blood Glucose 95 Orthostatic Vital Signs Start: 09/15/20 11:15 Freq: q24h Status: Active Protocol: Activity Type Activity Date Activity User E-Sign Co-Sign Detail Recorded Client Recorded Date Recorded By Document 09/15/20 11:15 MAL [id number] 09/15/20 11:17 MAL 09/15/20 11:15 Orthostatic Vitals Standing -Blood Pressure (90/60-120/80) 79/52 L -Extremity Use Right Arm -Pulse Rate (60-100) 89 Sitting -Blood Pressure (90/60-120/80) 122/63 H -Extremity Use Right Arm -Pulse Rate (60-100) 89 Lying -Blood Pressure (90/60-120/80) 126/60 H -Extremity Use Right Arm -Pulse Rate (60-100) 89 Sodium 136 mmol/L (136-145) 09/13/20 07:33 Potassium 5.0 mmol/L (3.5-5.1) 09/13/20 07:33 Chloride 110 mmol/L (98-107) H 09/13/20 07:33 Carbon Dioxide 19.0 mmol/L (21.0-32.0) L 09/13/20 07:33 Anion Gap 7 (5-15) 09/13/20 07:33 BUN 44 mg/dL (7-18) H 09/13/20 07:33 Creatinine 1.64 mg/dL (0.55-1.02) H 09/13/20 07:33 Est GFR (MDRD) Af Amer 42 mL/min (>60) L 09/13/20 07:33 Est GFR (MDRD) Non-Af 35 mL/min (>60) L 09/13/20 07:33 BUN/Creatinine Ratio 26.8 RATIO (10-20) H 09/13/20 07:33 Glucose 248 mg/dL (74-106) H 09/13/20 07:33 Assessment/Plan: Psychotropic Medications: Unnecessary Medications: Bowel Regimen: - Provider Comments Provider responsibility: Provider responsible to enter orders to implement recommendations Provider Comments to Recommendations by Pharmacy: Agree
--- NOTE | 2020-09-15 15:22 | NURSING ---
wound photo: left plantar foot
[2020-09-15 16:31] LABS: Bedside Glucose 133 mg/dL (70-110)
[2020-09-15] MEDS: 0.9% Normal Saline 1,000 ML 999 ML IV (18:27)
[2020-09-15] MEDS: Atorvastatin Calcium 80 MG Tablet PO (19:33)
[2020-09-15] MEDS: Paroxetine 20 MG Tablet PO (19:34)
[2020-09-15] MEDS: Zolpidem Tartrate 5 MG Tablet PO (20:55)
[2020-09-15 21:20] LABS: Bedside Glucose 88 mg/dL (70-110)
[2020-09-16 04:00] VITALS: BP 125/67; PULSE 84; RESP 18; TEMP 36.5; O2SAT 98
[2020-09-16] MEDS: Isosorbide Mononitrate 30 MG Tablet PO (05:52)
[2020-09-16] MEDS: Clopidogrel Bisulfate 75 MG Tablet PO (05:52)
[2020-09-16] MEDS: Senna/Docusate Sodium 1 Tablet PO ×2 (05:52→17:53)
[2020-09-16] MEDS: Nystatin Powder 15gm Bottle 1 APPLIC TOPICAL ×2 (05:53→22:02)
[2020-09-16 06:16] LABS: Bedside Glucose 171 mg/dL (70-110)
[2020-09-16] MEDS: Insulin Lispro 100 UNIT/ML INSULN.PEN 20 UNIT SC ×2 (08:39→12:52)
[2020-09-16] MEDS: Gabapentin 300 MG Capsule 900 MG PO ×3 (08:40→17:52)
[2020-09-16] MEDS: Iron Polysaccharide Complex 150 MG CAPSULE PO (08:41)
[2020-09-16] MEDS: Smz/Tmp Ds Tablet 1 TABLET PO ×2 (08:41→17:52)
[2020-09-16] MEDS: Glucerna Shake 120 ML LIQUID PO ×2 (08:49→17:58)
[2020-09-16 10:40] LABS: Bedside Glucose 167 mg/dL (70-110)
[2020-09-16 14:23] VITALS: BP 144/75; PULSE 95; RESP 14; TEMP 36.8; O2SAT 95
[2020-09-16 15:45] VITALS: PULSE 84; RESP 18; O2SAT 98
--- NOTE | 2020-09-16 15:54 | CASEMGMT ---
Addendum entered by Martha Barahona 09/16/20 16:46: Encouraged pt to contact [facility] customer service number to inquire about personal helpers to assist at DC. Pt stated she does have Medicaid active. Inquired to S - pt is active. Contacted registration to get updated in pt's chart. SW submitted Waiver application for pt to get additional assistance. Pt appreciative. Original Note: Social Work Spoke with pt about DC plans. Explained pt will DC home with wound vac with changes --. Inquired about electric and where she will DC to. Pt stated she needs to get paperwork from her house and bring that to [employer], which she cannot do while she's admitted, therefore, she will DC to her dtr's house. Pt not confident dtr can care for her - she lives in a split level house with steps to enter. Her dtr works M-F 7-4 pm but can help otherwise. Contacted dtr. Spoke with pt about above - she agrees pt can DC to her home and she can assist with anything she needs, including her electric. Dtr stated she can stay on the main level with the kitchen but will need a BSC as the bathroom is on the 2nd level. SW can order at DC. No other issues noted. Will continue to follow. MARTIN AlmodovarW
--- NOTE | 2020-09-16 17:00 | NURSING ---
THIS NURSE THIS FOUND PT WOUND VAC UNPLUGGED AND BATTERY WAS DIEING. PLUGGED VAC BACK IN AND ASKED PT HOW DID VAC COME UN PLUGGED. PT STATED I DONT KNOW. EXPLAINED TO PT THAT THE WOUND VAC MUST BE PLUGGED IN SO BATTERY DOESN'T BECAUSE IF IT DOES AND WE DONT KNOW HOW LONG IT WAS OFF STAFF WOULD HAVE TO REDO THE HOLE DRESSING. PT STATED SHE UNDER STOOD.
--- NOTE | 2020-09-16 17:05 | NURSING ---
PT STATED SHE DID NOT NEED ANY ONE UPDATED.
[2020-09-16 17:15] LABS: Bedside Glucose 107 mg/dL (70-110)
[2020-09-16] MEDS: oxyCODONE 5 MG Tablet PO (18:33)
--- NOTE | 2020-09-16 18:34 | NURSING ---
DR. THOMSON IN TO DEBRIDED PT LEFT FOOT AND WILL LEAVE WOUND VAC OFF AND KELSIE GUTHRIE/WOUND NURSE WILL PUT ON TOMORROW. RN AWARE.
--- NOTE | 2020-09-16 19:46 | PCM.PROGNOTE ---
Patient Problems: Active and Suspected Problems (This Medical Record has been edited. Action required.) Chest pain (Acute) Debility (Acute) Costochondritis (Acute) Cellulitis of left foot (Acute) Subjective: Patient seen bedside resting comfortably. She states she is having pain at her wound. She denies any N/F/V/C/C/SOB. She has had no issues with the wound vac. No new complaints - Physical Exam Vitals/I&O's: Vital Signs Temp Pulse Resp BP Pulse Ox 98.2 F 95 14 144/75 H 95 09/16/20 14:23 09/16/20 14:23 09/16/20 14:23 09/16/20 14:23 09/16/20 14:23 Oxygen Delivery Method Room Air Weight: 90.974 kg Body Mass Index (BMI) 29.7 Finger Stick Blood Glucose 95 Orthostatic Vital Signs Start: 09/15/20 11:15 Freq: q24h Status: Active Protocol: Activity Type Activity Date Activity User E-Sign Co-Sign Detail Recorded Client Recorded Date Recorded By Document 09/15/20 11:15 [facility] [id number] 09/15/20 11:17 MAL 09/15/20 11:15 Orthostatic Vitals Standing -Blood Pressure (90/60-120/80) 79/52 L -Extremity Use Right Arm -Pulse Rate (60-100) 89 Sitting -Blood Pressure (90/60-120/80) 122/63 H -Extremity Use Right Arm -Pulse Rate (60-100) 89 Lying -Blood Pressure (90/60-120/80) 126/60 H -Extremity Use Right Arm -Pulse Rate (60-100) 89 Intake and Output for Last 24 Hours 09/14/20 09/15/20 09/16/20 23:59 23:59 23:59 Intake Total 940 / 940 1840 / 1840 600 / 600 Balance 940 / 940 1840 / 1840 600 / 600 General: Alert, Oriented x3 HEENT: Atraumatic Extremities: No clubbing, No cyanosis, Capillary Refill Less than 3 Seconds, No Calf Tenderness, Diminished Peripheral Pulses, Edema - mild left foot Skin: Ulcer/ Wound - left foot ulcer to platar lateral foot, foam left in place, surrounding wound debrided. granulation tissue noted. The wound that was exposed didn't probe to bone. surrounding edema, mild callus, mild erythema, mild pain to palpation Musculoskeletal: Tenderness - vinicius ulcer Neurological: - - decreased epicritic sensation Psych/Mental Status: Normal Affect, Appropriate, Alert and oriented to time, place, person, mood and affect Microbiology Past 72 Hours 09/16/20 11:30 Nasal Secretion SARS-CoV-2 Antigen (Rapid) - Final Laboratory Results 09/15/20 21:11: POC Glucose 88 09/16/20 06:05: POC Glucose 171 H 09/16/20 10:27: POC Glucose 167 H 09/16/20 17:08: POC Glucose 107 Current Medications Acetaminophen (Acetaminophen 500 Mg Tablet) 1,000 mg PO Q6H PRN PRN PRN Reason: Pain Score 1-5 Atorvastatin Calcium (Atorvastatin Calcium 80 Mg Tablet) 80 mg PO QHS [facility] Last Admin: 09/15/20 19:33 Dose: 80 mg Documented by: Bisacodyl (Bisacodyl 10 Mg Suppository) 10 mg RECTAL DAILY PRN PRN Reason: Constipation Clopidogrel Bisulfate (Clopidogrel Bisulfate 75 Mg Tablet) 75 mg PO DAILY [facility] Last Admin: 09/16/20 05:52 Dose: 75 mg Documented by: Gabapentin (Gabapentin 300 Mg Capsule) 900 mg PO TIDCM [facility] Last Admin: 09/16/20 17:52 Dose: 900 mg Documented by: Insulin Glargine (Insulin Glargine 100 Units/Ml Pen) 35 units SC BID [facility] Last Admin: 09/16/20 18:26 Dose: 35 units Documented by: Insulin Human Lispro (Insulin Lispro 100 Unit/Ml Insuln.Pen) 20 unit SC TIDCM [facility] Last Admin: 09/16/20 17:51 Dose: Not Given Documented by: Isosorbide Mononitrate (Isosorbide Mononitrate 30 Mg Tablet) 30 mg PO DAILY [facility] Last Admin: 09/16/20 05:52 Dose: 30 mg Documented by: Magnesium Hydroxide (Magnesium Hydroxide 30 Ml Udc) 30 ml PO DAILY PRN PRN Reason: Constipation Multi-Ingredient Cream (Mineral Oil/Petrolatum,White Jar) 1 applic TOPICAL 0600,2200 [facility]; Protocol Last Admin: 09/16/20 05:51 Dose: 1 applicatio Documented by: Nutritional Formula (Nutritional Supp[facility] (Ted) Packet) [facility] Last Admin: 09/16/20 17:52 Dose: 1 packet Documented by: Nutritional Formula (Lactose Free) (Glucerna Shake 120 Ml Liquid) 120 ml PO TIDCM [facility] Last Admin: 09/16/20 17:58 Dose: 120 ml Documented by: Nystatin (Nystatin Powder 15gm Bottle) 1 applic TOPICAL 0600,2200 [facility]; Protocol Last Admin: 09/16/20 05:53 Dose: 1 applicatio Documented by: Oxycodone HCl (Oxycodone 5 Mg Tablet) 5 mg PO Q4H PRN PRN PRN Reason: Pain Score 6-10 Last Admin: 09/16/20 18:33 Dose: 5 mg Documented by: Paroxetine HCl (Paroxetine 20 Mg Tablet) 20 mg PO QHS [facility] Last Admin: 09/15/20 19:34 Dose: 20 mg Documented by: Polyethylene Glycol (Polyethylene Glycol 3350 17 Gm Packet) 17 gm PO DAILY [facility] Last Admin: 09/16/20 05:53 Dose: Not Given Documented by: Polysaccharide Iron Complex (Iron Polysaccharide Complex 150 Mg Capsule) [facility] Last Admin: 09/16/20 08:41 Dose: 150 mg Documented by: Pramipexole Dihydrochloride (Pramipexole Di-Hcl 1 Mg Tablet) 3 mg PO QHS [facility] Last Admin: 09/14/20 21:15 Dose: 3 mg Documented by: Senna/Docusate Sodium (Senna/Docusate Sodium 1 Tablet) 1 tablet PO BID [facility] Last Admin: 09/16/20 17:53 Dose: 1 tablet Documented by: Sodium Chloride (0.9% Saline Lock 10 Ml Syringe) 10 - 40 ml IV UD PRN PRN Reason: SALINE FLUSH Trimethoprim/Sulfamethoxazole (Smz/Tmp Ds Tablet) [facility] Stop: 09/18/20 17:01 Last Admin: 09/16/20 17:52 Dose: 1 tablet Documented by: Tuberculin PPD (Tuberculin,Purif.Prot.Deriv. 50 Tu/Ml Vial) 5 tu ID X1 ONE Stop: 09/20/20 10:01 Zolpidem Tartrate (Zolpidem Tartrate 5 Mg Tablet) 5 mg PO QHS PRN PRN PRN Reason: INSOMNIA Last Admin: 09/15/20 20:55 Dose: 5 mg Documented by: Medical Necessity - Tobacco Use Smoking Status: Never smoker Tobacco Use: Non-smoker Assessment/Plan All Active Problems (This Medical Record has been edited. Action required.) Ulcer of left foot with muscle involvement without evidence of necrosis (Acute) Diabetic infection of left foot (Acute) Chest pain (Acute) Debility (Acute) Costochondritis (Acute) Cellulitis of left foot (Acute) NSTEMI (non-ST elevated myocardial infarction) (Resolved 09/20/18) History of coronary artery stent placement (Resolved 09/21/18) Abscess of left foot (Resolved) Cellulitis of left foot (Resolved) Chest pain (Resolved) Diabetic foot infection (Resolved) Diarrhea (Resolved) Enteritis, Yersinia enterocolitica (Resolved) Hyperglycemia (Resolved) Intractable nausea and vomiting (Resolved) Malnutrition (Resolved) Necrotizing soft tissue infection (Resolved) Severe sepsis (Resolved) Left plantar foot ulceration down to fascia layer with possible underlying osteomyelitis s/p I&D left foot on 09/08/[address] Guadarrama 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 No signs of infection Patient is currently on bactrim and nystatin WBC was 8.8 on 09/13/20 Patient complaining of some pain to her ulcer and was reluctant to do a debridement. We compromised to doing a debridement to patient tolerance without removing the gel foam Sharp excisional nonselective debridement was carried out to the plantar left heel into the level of sub q with a #15 blade without incident. Devitalized tissue was removed. Approximately 40% of the wound was debrided before we reached patient tolerance. Pre debridment measurements were 2.4x3.4x0.3cm. Post debridemnt measurements were 2.5x3.5x0.4cm Patient to resume wound vac tomorrow Patient to remain NWB to left foot All questions answered to patient satisfaction Reviewed importance of offloading, good blood glucose control and proper diet in aiding wound healing Please contact if any questions. Podiatry will continue to follow on a weekly basis
[2020-09-16 21:20] LABS: Bedside Glucose 178 mg/dL (70-110)
[2020-09-16] MEDS: Zolpidem Tartrate 5 MG Tablet PO (21:50)
[2020-09-16] MEDS: Pramipexole Di-HCl 1 MG Tablet 3 MG PO (21:51)
[2020-09-16] MEDS: Atorvastatin Calcium 80 MG Tablet PO (21:51)
[2020-09-16] MEDS: Paroxetine 20 MG Tablet PO (21:52)
[2020-09-17 04:00] VITALS: BP 132/77; PULSE 86; RESP 16; TEMP 36.4; O2SAT 95
[2020-09-17] MEDS: Clopidogrel Bisulfate 75 MG Tablet PO (06:24)
[2020-09-17] MEDS: Isosorbide Mononitrate 30 MG Tablet PO (06:24)
[2020-09-17] MEDS: Senna/Docusate Sodium 1 Tablet PO ×2 (06:24→20:45)
[2020-09-17] MEDS: Polyethylene Glycol 3350 17 GM PACKET PO (06:24)
[2020-09-17 06:25] LABS: Bedside Glucose 96 mg/dL (70-110)
[2020-09-17] MEDS: Iron Polysaccharide Complex 150 MG CAPSULE PO (08:50)
[2020-09-17] MEDS: Gabapentin 300 MG Capsule 900 MG PO ×3 (08:50→20:46)
[2020-09-17] MEDS: Smz/Tmp Ds Tablet 1 TABLET PO ×2 (08:50→20:46)
[2020-09-17] MEDS: Insulin Lispro 100 UNIT/ML INSULN.PEN 15 UNIT SC ×2 (09:33→12:50)
[2020-09-17] MEDS: 0.9% Saline Lock 10 ML Syringe IV (09:37)
[2020-09-17 09:41] LABS: Bedside Glucose 219 mg/dL (70-110)
--- NOTE | 2020-09-17 09:48 | NURSING ---
saline lock d/c due to infiltration. ok per rn.
--- NOTE | 2020-09-17 10:25 | CASEMGMT ---
Social Work IDT met with patient for care plan meeting. Discussed patient's progress in therapy. Pt is independent for bed mobility, NV for sit to stands, and SPT from bed to w/c or bed to BSC with and w/o WW while maintaining NWBS on LLE, and trialing knee scooter. Teri for toileting and sponge bath and dressing, will need assist with IADLs. Pt is on an 1800 calorie diet, receiving Ted and Glucerna, and has good intake. Pt is out of isolation 09/26, has wound vac that has changes M-W-. Explained [facility] insurance with NRD 09/18 and to anticipate NOMNC. Pt will DC to [facility] house with HHC, BSC and SW to provide transport resources. Will continue to follow. MARTIN AlmodovarW
[2020-09-17 11:10] LABS: Bedside Glucose 171 mg/dL (70-110)
[2020-09-17] MEDS: Glucerna Shake 120 ML LIQUID PO (11:49)
--- NOTE | 2020-09-17 13:11 | NURSING ---
PT LEFT BY WHEEL CHAIR FOR APPOINTMENT AT [facility] AT 1305.
--- NOTE | 2020-09-17 14:32 | NURSING ---
PT UPDATES FAMILY
--- NOTE | 2020-09-17 16:59 | NURSING ---
WOUND VAC REAPPLIED TODAY BY KELSIE GUTHRIE/WOUND NURSE.
[2020-09-17 20:21] LABS: Bedside Glucose 194 mg/dL (70-110)
[2020-09-17 20:21] LABS: Bedside Glucose 77 mg/dL (70-110)
[2020-09-17] MEDS: oxyCODONE 5 MG Tablet PO (20:44)
[2020-09-17] MEDS: Atorvastatin Calcium 80 MG Tablet PO (20:45)
[2020-09-17] MEDS: Pramipexole Di-HCl 1 MG Tablet 3 MG PO (20:48)
[2020-09-17] MEDS: Paroxetine 20 MG Tablet PO (20:49)
[2020-09-17 20:50] VITALS: PULSE 78; RESP 16; O2SAT 96
--- NOTE | 2020-09-17 23:02 | NURSING ---
Addendum entered by Evelia Kirk 09/17/20 23:11: Patient wound vac wasn't powered on when she made it back for the appointment. This nurse plugged in and turn on equipment. Check the seal on wound vac intact and pressure 150 mmHG. Addendum entered by Evelia Kirk 09/17/20 23:03: This nurse administered medication as ordered and patient complain of pain in left eye. Assessed left eye and noted burst blood vessel in the eye, swelling of the eyelids, and dilated pupil. Patient also states she has blurred vision in both eyes. At patient eye appointment she had steroid injection done today. Made patient aware that those are symptoms of the injection and will continue to monitor. KELSIE Tariq made aware and she went back and assessed the patient also. Original Note: 19:10 Patient returned back from eye appointment with no new orders.
[2020-09-18 00:25] LABS: Bedside Glucose 191 mg/dL (70-110)
[2020-09-18 04:00] VITALS: BP 138/81; PULSE 72; RESP 16; TEMP 36.8; O2SAT 95
[2020-09-18 06:20] LABS: Bedside Glucose 110 mg/dL (70-110)
[2020-09-18] MEDS: Isosorbide Mononitrate 30 MG Tablet PO (06:36)
[2020-09-18] MEDS: Clopidogrel Bisulfate 75 MG Tablet PO (06:36)
[2020-09-18] MEDS: Senna/Docusate Sodium 1 Tablet PO ×2 (06:37→17:36)
[2020-09-18] MEDS: Gabapentin 300 MG Capsule 900 MG PO ×3 (08:05→17:35)
[2020-09-18] MEDS: Insulin Lispro 100 UNIT/ML INSULN.PEN 15 UNIT SC ×3 (08:05→17:34)
[2020-09-18] MEDS: Iron Polysaccharide Complex 150 MG CAPSULE PO (08:06)
[2020-09-18] MEDS: Smz/Tmp Ds Tablet 1 TABLET PO ×2 (08:06→17:35)
[2020-09-18 09:39] VITALS: PULSE 85; RESP 16; O2SAT 97
[2020-09-18] MEDS: oxyCODONE 5 MG Tablet PO ×2 (09:48→19:50)
[2020-09-18 10:41] LABS: Bedside Glucose 127 mg/dL (70-110)
[2020-09-18 12:54] VITALS: BP 162/63; PULSE 85; RESP 18; TEMP 36.8; O2SAT 96
[2020-09-18 13:11] LABS: Bedside Glucose 143 mg/dL (70-110)
[2020-09-18 14:17] VITALS: BP 129/67
--- NOTE | 2020-09-18 14:44 | MDS.RN ---
completed pain interview for nica 09/19/20.
[2020-09-18 16:51] LABS: Bedside Glucose 143 mg/dL (70-110)
[2020-09-18] MEDS: Glucerna Shake 120 ML LIQUID PO (17:33)
[2020-09-18] MEDS: Glycerin/Hypromellose/PEG400 15 ml Bottle 2 DRP EACH EYE (21:22)
[2020-09-18] MEDS: Pramipexole Di-HCl 1 MG Tablet 3 MG PO (21:24)
[2020-09-18] MEDS: Paroxetine 20 MG Tablet 30 MG PO (21:25)
[2020-09-18] MEDS: Atorvastatin Calcium 80 MG Tablet PO (21:26)
[2020-09-18] MEDS: Zolpidem Tartrate 5 MG Tablet PO (21:29)
[2020-09-18 21:40] LABS: Bedside Glucose 151 mg/dL (70-110)
[2020-09-19 04:00] VITALS: BP 126/60; PULSE 72; RESP 18; TEMP 36.5; O2SAT 96
[2020-09-19 06:31] LABS: Bedside Glucose 157 mg/dL (70-110)
[2020-09-19] MEDS: Senna/Docusate Sodium 1 Tablet PO ×2 (07:01→17:35)
[2020-09-19] MEDS: Nystatin Powder 15gm Bottle 1 APPLIC TOPICAL ×2 (07:01→21:20)
[2020-09-19] MEDS: Isosorbide Mononitrate 30 MG Tablet PO (07:01)
[2020-09-19] MEDS: Polyethylene Glycol 3350 17 GM PACKET PO (07:01)
[2020-09-19] MEDS: Clopidogrel Bisulfate 75 MG Tablet PO (07:01)
[2020-09-19] MEDS: Insulin Lispro 100 UNIT/ML INSULN.PEN 15 UNIT SC ×3 (08:22→17:37)
[2020-09-19] MEDS: Gabapentin 300 MG Capsule 900 MG PO ×3 (08:24→17:35)
[2020-09-19] MEDS: Iron Polysaccharide Complex 150 MG CAPSULE PO (08:24)
[2020-09-19 11:06] LABS: Bedside Glucose 150 mg/dL (70-110)
--- NOTE | 2020-09-19 13:43 | CASEMGMT ---
Social Work Insurance issued LCD 09/21, DC 09/22. Notified pt. Pt agreeable. Notified wound nurse and she will put on home wound vac when changing 09/22. Dtr can transport pt home. Pt requesting [facility] and [facility]. [place] [facility] for PT/OT/SN - 3x/wk for wound vac changes. Pt to purchase crutches. Provided transport resources. Plan: DC to dtrs house 09/22 with [facility] PT/OT/SN, wound vac, [facility]. Martha Barahona, MELTING SUPERVISOR PERIODONTIST
[2020-09-19 13:53] VITALS: BP 158/72; PULSE 98; RESP 18; TEMP 36.9; O2SAT 94
--- NOTE | 2020-09-19 15:28 | PCM.DC ---
- Discharge Diagnoses Current Active Problems: Current Active and Chronic Problems (This Medical Record has been edited. Action required.) RLS (restless legs syndrome) (Chronic) Chest pain (Acute) Debility (Acute) Costochondritis (Acute) Foot ulcer, left (Chronic) Cellulitis of left foot (Acute) Coronary artery disease (Chronic) Hypertension (Chronic) Diabetic polyneuropathy (Chronic) GERD (gastroesophageal reflux disease) (Chronic) Depression (Chronic) Anxiety (Chronic) Diabetes mellitus (Chronic) HLD (hyperlipidemia) (Chronic) You will use the following diet at home:: No restrictions, Regular Your food should be the consistency of: Regular Your liquids should be the consistency of: Regular/Thin Discharge Activity: Return to Normal Activity, May Shower, Use Walker Weight Bearing Status: No weight bearing - Left lower extremity. Keep extremity elevated above heart level: Left Leg Call your doctor if you observe: Fever of 101 or Higher, Inability to urinate, Inability to have a bowel movement, Shortness of breath, Chest pain, Uncontrolled pain Allergies/Adverse Reactions: Allergies Penicillins Allergy (Verified 08/31/20 22:02) Shortness of breath vancomycin Allergy (Verified 08/31/20 22:02) Itching metronidazole Adverse Reaction (Verified 08/31/20 22:02) Nausea OXYCONTIN Allergy (Uncoded 08/31/20 22:02) Shortness of breath Medications to take at Discharge Gabapentin [Neurontin] 900 mg PO TIDCM 09/20/18 atorvastatin 80 mg tablet 80 mg PO QHS #90 tab 11/30/19 clopidogrel 75 mg tablet 75 mg PO DAILY #90 tab 11/30/19 Insulin Lispro [Humalog KwikPen] 20 unit SC TIDCM 08/31/20 Zolpidem Tartrate [Ambien] 5 mg PO QHS PRN PRN 09/01/20 Insulin Glargine [Lantus SoloStar Pen] 35 units SC BID 09/12/20 Iron Polysaccharide Complex [Ferrex 150] 150 mg PO DAILYCM 09/12/20 Isosorbide Mononitrate [Isosorbide Mononitrate ER] 30 mg PO DAILY 09/12/20 Paroxetine [Paxil] 20 mg PO QHS 09/12/20 Pramipexole Di-HCl [Mirapex] 1.5 mg PO BID 09/12/20 Acetaminophen [Tylenol] 1,000 mg PO Q6H PRN PRN tablet 09/19/20 Mineral Oil/Petrolatum,White [Eucerin] 1 applic TOPICAL 0600,2200 jar 09/19/20 Nutritional Supplement [Ted - ORANGE FLAVOR] 1 packet PO BIDCM #60 packet 09/19/20 Nystatin Powder [Mycostatin Powder] 1 applic TOPICAL 0600,2200 bottle 09/19/20 Oxycodone [Oxyir] 5 mg PO Q4H PRN PRN 3 Days #18 tab 09/19/20 Peg 400/Hypromellose/Glycerin [Artificial Tears] 2 drop EACH EYE Q1H PRN bottle 09/19/20 Polyethylene Glycol 3350 [Miralax] 17 gm PO DAILY #30 packet 09/19/20 The following prescriptions were given: Nutritional Supplement [Ted - ORANGE FLAVOR] 1 packet PO BIDCM #60 packet Transmission Status: Pending to [facility]/pharmacy #[id number] Polyethylene Glycol 3350 [Miralax] 17 gm PO DAILY #30 packet Transmission Status: Pending to [facility]/pharmacy #[id number] Oxycodone [Oxyir] 5 mg PO Q4H PRN PRN 3 Days #18 tab PRN Reason: Pain Score 6-10 Transmission Status: Sent to [facility]/pharmacy #[id number] Primary Care Physician: Raúl Eric MD [Primary Care Provider] - Please follow up with your Primary Care Physician in: 1 week. Test Results: Test results from this visit will be discussed in further detail at your follow-up appointment, if applicable. Please Follow Up With: Wandy Lam NP, SLIP COVER SEAMSTRESS-C When: 1 week Please Follow Up With: Kike Tello MD When: PRN for antibiotic issues/left foot ulcer Please Follow Up With: Raúl Perdomo MD When: [phone] Please Follow Up With: Reba Proposed Discharge Date: 09/22/20
--- NOTE | 2020-09-19 15:30 | PCM.DC.SUM ---
Discharge Date and Diagnosis - Problem List Patient Problems: Active and Suspected Problems (This Medical Record has been edited. Action required.) Chest pain (Acute) Debility (Acute) Costochondritis (Acute) Cellulitis of left foot (Acute) Date of Admission: 09/12/20 Date of Discharge: 09/22/20 - Primary Discharge Diagnosis Acute Problems: Active Problems (This Medical Record has been edited. Action required.) Chest pain (Acute) Debility (Acute) Costochondritis (Acute) Cellulitis of left foot (Acute) - Secondary Discharge Diagnosis Chronic Problems: Chronic Problems (This Medical Record has been edited. Action required.) Anemia (Chronic) Anxiety and depression (Chronic) RLS (restless legs syndrome) (Chronic) Uncontrolled type II diabetes mellitus (Chronic) Obesity (Chronic) Foot ulcer, left (Chronic) Coronary artery disease (Chronic) Hypertension (Chronic) Diabetic polyneuropathy (Chronic) GERD (gastroesophageal reflux disease) (Chronic) Depression (Chronic) Anxiety (Chronic) Diabetes mellitus (Chronic) Atherosclerosis of [place] coronary artery of [place] heart without angina pectoris (Chronic) Essential (primary) hypertension (Chronic) HLD (hyperlipidemia) (Chronic) Hospital Course and Treatment Imaging Results: 09/12/20 14:02 Diet: Regular - General Food consistency:: Regular Liquid Consistency:: Regular/Thin Dietary Modifications:: Cardiac / Heart Healthy Is pt able to select menu?: Yes Diet Comments: 1800 Calorie Diet Labs (Last 48 Hours) 09/17/20 09/17/20 09/17/20 19:24 20:17 20:59 POC Glucose 77 194 H 191 H 09/18/20 09/18/20 09/18/20 05:14 10:35 13:06 POC Glucose 110 127 H 143 H 09/18/20 09/18/20 09/19/20 16:45 21:35 06:21 POC Glucose 143 H 151 H 157 H 09/19/20 10:57 POC Glucose 150 H Consultations 09/15/20 06:41 Consult: Onc/Wound/asian art curator Routine Comment: Reason for Consult:: VAC left foot Operations: None, - Procedures: None Summary of Care Provided: The patient is a 55 year old Female with below past medical history hospitalized for chest pain, ruled out for myocardial infarction, complicated by infected left foot ulcer requiring debridement, admitted to TCU with debility, here for rehabilitation, strengthening, prior to discharge home with family. Discharge to Daughter's home, [facility] PT/OT/SN. Patient Problems: Active and Suspected Problems (This Medical Record has been edited. Action required.) Chest pain (Acute) Debility (Acute) Costochondritis (Acute) Cellulitis of left foot (Acute) - Physical Exam Vitals/I&O's: Vital Signs Temp Pulse Resp BP Pulse Ox 98.5 F 98 18 158/72 H 94 09/19/20 13:53 09/19/20 13:53 09/19/20 13:53 09/19/20 13:53 09/19/20 13:53 Oxygen Delivery Method Room Air Weight: 90.974 kg Body Mass Index (BMI) 29.7 Finger Stick Blood Glucose 95 Intake and Output for Last 24 Hours 09/17/20 09/18/20 09/19/20 23:59 23:59 23:59 Intake Total 720 / 720 600 / 600 840 / 840 Balance 720 / 720 600 / 600 840 / 840 Microbiology Past 72 Hours 09/16/20 11:30 Nasal Secretion SARS-CoV-2 Antigen (Rapid) - Final Laboratory Results 09/18/20 16:45: POC Glucose 143 H 09/18/20 21:35: POC Glucose 151 H 09/19/20 06:21: POC Glucose 157 H 09/19/20 10:57: POC Glucose 150 H Current Medications Acetaminophen (Acetaminophen 500 Mg Tablet) 1,000 mg PO Q6H PRN PRN PRN Reason: Pain Score 1-5 Atorvastatin Calcium (Atorvastatin Calcium 80 Mg Tablet) 80 mg PO QHS [facility] Last Admin: 09/18/20 21:26 Dose: 80 mg Documented by: Bisacodyl (Bisacodyl 10 Mg Suppository) 10 mg RECTAL DAILY PRN PRN Reason: Constipation Clopidogrel Bisulfate (Clopidogrel Bisulfate 75 Mg Tablet) 75 mg PO DAILY [facility] Last Admin: 09/19/20 07:01 Dose: 75 mg Documented by: Gabapentin (Gabapentin 300 Mg Capsule) 900 mg PO TIDCM [facility] Last Admin: 09/19/20 12:29 Dose: 900 mg Documented by: Insulin Glargine (Insulin Glargine 100 Units/Ml Pen) 25 units SC BID [facility] Last Admin: 09/19/20 07:00 Dose: 25 u Documented by: Insulin Human Lispro (Insulin Lispro 100 Unit/Ml Insuln.Pen) 15 unit SC TIDCM [facility] Last Admin: 09/19/20 12:28 Dose: 15 u Documented by: Isosorbide Mononitrate (Isosorbide Mononitrate 30 Mg Tablet) 30 mg PO DAILY [facility] Last Admin: 09/19/20 07:01 Dose: 30 mg Documented by: Magnesium Hydroxide (Magnesium Hydroxide 30 Ml Udc) 30 ml PO DAILY PRN PRN Reason: Constipation Multi-Ingredient Cream (Mineral Oil/Petrolatum,White Jar) 1 applic TOPICAL 0600,2200 [facility]; Protocol Last Admin: 09/19/20 07:02 Dose: 1 applicatio Documented by: Nutritional Formula ([facility] ([facility]) [facility]) [facility] Last Admin: 09/19/20 08:24 Dose: Not Given Documented by: Nutritional Formula (Lactose Free) (Glucerna Shake 120 Ml Liquid) 120 ml PO TIDCM [facility] Last Admin: 09/19/20 12:28 Dose: Not Given Documented by: Nystatin (Nystatin Powder 15gm Bottle) 1 applic TOPICAL 0600,2200 [facility]; Protocol Last Admin: 09/19/20 07:01 Dose: 1 applicatio Documented by: Oxycodone HCl (Oxycodone 5 Mg Tablet) 5 mg PO Q4H PRN PRN PRN Reason: Pain Score 6-10 Last Admin: 09/18/20 19:50 Dose: 5 mg Documented by: Paroxetine HCl (Paroxetine 20 Mg Tablet) 30 mg PO QHS [facility] Last Admin: 09/18/20 21:25 Dose: 30 mg Documented by: Polyethylene Glycol (Polyethylene Glycol 3350 17 Gm Packet) 17 gm PO DAILY [facility] Last Admin: 09/19/20 07:01 Dose: 17 gm Documented by: Polysaccharide Iron Complex (Iron Polysaccharide Complex 150 Mg Capsule) [facility] Last Admin: 09/19/20 08:24 Dose: 150 mg Documented by: Pramipexole Dihydrochloride (Pramipexole Di-Hcl 1 Mg Tablet) 3 mg PO QHS [facility] Last Admin: 09/18/20 21:24 Dose: 3 mg Documented by: Senna/Docusate Sodium (Senna/Docusate Sodium 1 Tablet) 1 tablet PO BID [facility] Last Admin: 09/19/20 07:01 Dose: 1 tablet Documented by: Sodium Chloride (0.9% Saline Lock 10 Ml Syringe) 10 - 40 ml IV UD PRN PRN Reason: SALINE FLUSH Last Admin: 09/17/20 09:37 Dose: 10 ml Documented by: Sodium Chloride (0.9% Saline Lock 10 Ml Syringe) 10 - 40 ml IV UD PRN PRN Reason: SALINE FLUSH Tuberculin PPD (Tuberculin,Purif.Prot.Deriv. 50 Tu/Ml Vial) 5 tu ID X1 ONE Stop: 09/20/20 10:01 Zolpidem Tartrate (Zolpidem Tartrate 5 Mg Tablet) 5 mg PO QHS PRN PRN PRN Reason: INSOMNIA Last Admin: 09/18/20 21:29 Dose: 5 mg Documented by: Discharge Diet: No Restrictions Discharge Activity: Return to Normal Activity, May Shower, Use Walker Weight Bearing Status: No weight bearing - Left lower extremity. Keep extremity elevated above heart level: Left Leg Call your doctor if you observe: Fever of 101 or Higher, Inability to urinate, Inability to have a bowel movement, Shortness of breath, Chest pain, Uncontrolled pain Home Medications: Medications to take at Discharge Gabapentin [Neurontin] 900 mg PO TIDCM 09/20/18 atorvastatin 80 mg tablet 80 mg PO QHS #90 tab 11/30/19 clopidogrel 75 mg tablet 75 mg PO DAILY #90 tab 11/30/19 Insulin Lispro [Humalog KwikPen] 20 unit SC TIDCM 08/31/20 Zolpidem Tartrate [Ambien] 5 mg PO QHS PRN PRN 09/01/20 Insulin Glargine [Lantus SoloStar Pen] 35 units SC BID 09/12/20 Iron Polysaccharide Complex [Ferrex 150] 150 mg PO DAILYCM 09/12/20 Isosorbide Mononitrate [Isosorbide Mononitrate ER] 30 mg PO DAILY 09/12/20 Paroxetine [Paxil] 20 mg PO QHS 09/12/20 Pramipexole Di-HCl [Mirapex] 1.5 mg PO BID 09/12/20 Acetaminophen [Tylenol] 1,000 mg PO Q6H PRN PRN tablet 09/19/20 Mineral Oil/Petrolatum,White [Eucerin] 1 applic TOPICAL 0600,2200 jar 09/19/20 Nutritional Supplement [Ted - ORANGE FLAVOR] 1 packet PO BIDCM #60 packet 09/19/20 Nystatin Powder [Mycostatin Powder] 1 applic TOPICAL 0600,2200 bottle 09/19/20 Oxycodone [Oxyir] 5 mg PO Q4H PRN PRN 3 Days #18 tab 09/19/20 Peg 400/Hypromellose/Glycerin [Artificial Tears] 2 drop EACH EYE Q1H PRN bottle 09/19/20 Polyethylene Glycol 3350 [Miralax] 17 gm PO DAILY #30 packet 09/19/20 Following Prescriptions Were Given to Patient: Nutritional Supplement [Ted - ORANGE FLAVOR] 1 packet PO BIDCM #60 packet Transmission Status: Pending to [facility]/pharmacy #[id number] Polyethylene Glycol 3350 [Miralax] 17 gm PO DAILY #30 packet Transmission Status: Pending to [facility]/pharmacy #[id number] Oxycodone [Oxyir] 5 mg PO Q4H PRN PRN 3 Days #18 tab PRN Reason: Pain Score 6-10 Transmission Status: Sent to [facility]/pharmacy #[id number] Primary Care Physician: Raúl Eric MD [Primary Care Provider] - Please follow up with your Primary Care Physician in: 1 week. Please Follow Up With: Wandy Lam LENS GENERATOR, LENS GENERATOR-C When: 1 week Please Follow Up With: Kike Tello MD When: PRN for antibiotic issues/left foot ulcer Please Follow Up With: Raúl Perdomo MD When: [phone] Please Follow Up With: Reba Disposition: Home with Home Health Minutes spent on discharge:: 35 Patient Condition:: Stable Medical Necessity - Tobacco Use Smoking Status: Never smoker Tobacco Use: Non-smoker Meaningful Use Info Meaningful Use Diagnoses (Choose all that apply): None applicable
[2020-09-19 16:31] LABS: Bedside Glucose 115 mg/dL (70-110)
[2020-09-19] MEDS: Magnesium Hydroxide 30 ML UDC PO (16:39)
[2020-09-19] MEDS: Glucerna Shake 120 ML LIQUID PO (17:35)
[2020-09-19] MEDS: oxyCODONE 5 MG Tablet PO (18:45)
[2020-09-19] MEDS: Atorvastatin Calcium 80 MG Tablet PO (21:19)
[2020-09-19] MEDS: Pramipexole Di-HCl 1 MG Tablet 3 MG PO (21:19)
[2020-09-19] MEDS: Paroxetine 20 MG Tablet 30 MG PO (21:19)
[2020-09-19] MEDS: Zolpidem Tartrate 5 MG Tablet PO (21:19)
[2020-09-19 22:01] LABS: Bedside Glucose 152 mg/dL (70-110)
[2020-09-20 05:00] VITALS: BP 149/73; PULSE 78; RESP 18; TEMP 37.2; O2SAT 98
[2020-09-20] MEDS: Polyethylene Glycol 3350 17 GM PACKET PO (05:40)
[2020-09-20] MEDS: Clopidogrel Bisulfate 75 MG Tablet PO (05:40)
[2020-09-20] MEDS: Senna/Docusate Sodium 1 Tablet PO (05:40)
[2020-09-20] MEDS: Isosorbide Mononitrate 30 MG Tablet PO (05:40)
[2020-09-20] MEDS: Nystatin Powder 15gm Bottle 1 APPLIC TOPICAL ×2 (05:45→22:36)
[2020-09-20 06:35] LABS: Bedside Glucose 164 mg/dL (70-110)
[2020-09-20 08:06] LABS: Absolute Lymphocyte Count 1.63 X10^3/uL (0.83-4.51); Absolute Neutrophil Count 5.9 X10^3/uL (2.0-7.7); Basophil# 0.05 X10^3/uL; Basophil% 0.6 % (0-1); Eosinophil# 0.24 X10^3/uL; Eosinophils% 2.9 % (0-5); Hematocrit 30.7 % (37-47); Hemoglobin 9.6 g/dL (12.0-15.0); Lymphocyte # 1.63 X10^3/ul (4.0); Lymphocyte % 19.6 % (19-41); Mean Corp Hgb Conc 31.3 g/dL (32-36); Mean Corpuscular Hgb 28.2 pg (27.0-32.0); Mean Corpuscular Volume 90.3 fL (81-99); Monocyte# 0.48 X10^3/uL; Monocyte% 5.8 % (0-10); NRBC Flagged by Analyzer 0 % (0-5); Neutrophil % 70.7 % (47-70); Platelet Count 387 K/mm3 (150-450); RBC Distribution Width CV 12.8 % (11.6-14.6); RBC Distribution Width SD 42.1 fl (35.1-43.9); White Blood Count 8.3 K/mm3 (4.4-11.0)
[2020-09-20 08:13] LABS: Anion Gap 4 (5-15); BUN 51 mg/dL (7-18); BUN/Creat Ratio 33.1 RATIO (10-20); Calcium,Total 9.1 mg/dL (8.5-10.1); Chloride 111 mmol/L (98-107); Creatinine, Serum 1.54 mg/dL (0.55-1.02); EST Glomerular Filtration Rate 37 mL/min (>60); Est Glom Filt Rate - Afr Amer 45 mL/min (>60); Estimated Creatinine Clearance 38.64 ml/min; Glucose 150 mg/dL (74-106); Potassium 4.7 mmol/L (3.5-5.1); Sodium Level 139 mmol/L (136-145)
[2020-09-20] MEDS: Iron Polysaccharide Complex 150 MG CAPSULE PO (08:52)
[2020-09-20] MEDS: Gabapentin 300 MG Capsule 900 MG PO ×3 (08:53→18:16)
[2020-09-20] MEDS: Glucerna Shake 120 ML LIQUID PO (09:03)
[2020-09-20] MEDS: Insulin Lispro 100 UNIT/ML INSULN.PEN 15 UNIT SC ×3 (09:05→18:17)
[2020-09-20 10:00] VITALS: PULSE 83; RESP 18; O2SAT 97
[2020-09-20] MEDS: Tuberculin,Purif.prot.deriv. 50 TU/ML Vial 5 ML ID (10:52)
[2020-09-20 11:25] LABS: Bedside Glucose 191 mg/dL (70-110)
[2020-09-20] MEDS: Glycerin/Hypromellose/PEG400 15 ml Bottle 2 DRP EACH EYE ×2 (12:03→22:59)
--- NOTE | 2020-09-20 15:19 | NURSING ---
PT STATED SHE UPDATES FAMILY
[2020-09-20 16:32] VITALS: BP 113/63; PULSE 90; RESP 18; TEMP 36.8; O2SAT 96
[2020-09-20 17:25] LABS: Bedside Glucose 279 mg/dL (70-110)
[2020-09-20 22:05] LABS: Bedside Glucose 221 mg/dL (70-110)
[2020-09-20] MEDS: Pramipexole Di-HCl 1 MG Tablet 3 MG PO (22:34)
[2020-09-20] MEDS: Atorvastatin Calcium 80 MG Tablet PO (22:34)
[2020-09-20] MEDS: Paroxetine 20 MG Tablet 30 MG PO (22:35)
[2020-09-20] MEDS: Zolpidem Tartrate 5 MG Tablet PO (22:58)
[2020-09-20] MEDS: oxyCODONE 5 MG Tablet PO (23:26)
[2020-09-21 05:00] VITALS: BP 130/63; PULSE 80; RESP 18; TEMP 36.6; O2SAT 97
[2020-09-21] MEDS: Clopidogrel Bisulfate 75 MG Tablet PO (06:07)
[2020-09-21] MEDS: Isosorbide Mononitrate 30 MG Tablet PO (06:08)
[2020-09-21] MEDS: Senna/Docusate Sodium 1 Tablet PO ×2 (06:08→18:11)
[2020-09-21] MEDS: Glycerin/Hypromellose/PEG400 15 ml Bottle 2 DRP EACH EYE ×3 (06:16→21:09)
[2020-09-21 06:26] LABS: Bedside Glucose 163 mg/dL (70-110)
[2020-09-21] MEDS: Gabapentin 300 MG Capsule 900 MG PO ×3 (07:58→18:11)
[2020-09-21] MEDS: Insulin Lispro 100 UNIT/ML INSULN.PEN 15 UNIT SC ×3 (07:59→18:12)
[2020-09-21] MEDS: Iron Polysaccharide Complex 150 MG CAPSULE PO (07:59)
[2020-09-21 11:10] LABS: Bedside Glucose 179 mg/dL (70-110)
[2020-09-21] MEDS: oxyCODONE 5 MG Tablet PO (12:07)
[2020-09-21 15:49] VITALS: BP 127/66; PULSE 82; RESP 18; TEMP 37.2; O2SAT 96
--- NOTE | 2020-09-21 16:04 | NURSING ---
PT STATED SHE UPDATES FAMILY
[2020-09-21 17:20] LABS: Bedside Glucose 127 mg/dL (70-110)
[2020-09-21] MEDS: Paroxetine 20 MG Tablet 30 MG PO (21:08)
[2020-09-21] MEDS: Atorvastatin Calcium 80 MG Tablet PO (21:08)
[2020-09-21] MEDS: Pramipexole Di-HCl 1 MG Tablet 3 MG PO (21:09)
[2020-09-21 21:26] LABS: Bedside Glucose 188 mg/dL (70-110)
[2020-09-21] MEDS: Zolpidem Tartrate 5 MG Tablet PO (22:29)
[2020-09-22 05:00] VITALS: BP 156/64; PULSE 80; RESP 18; TEMP 36.6; O2SAT 97
[2020-09-22] MEDS: Senna/Docusate Sodium 1 Tablet PO (06:11)
[2020-09-22] MEDS: Isosorbide Mononitrate 30 MG Tablet PO (06:11)
[2020-09-22] MEDS: Clopidogrel Bisulfate 75 MG Tablet PO (06:11)
[2020-09-22] MEDS: Glycerin/Hypromellose/PEG400 15 ml Bottle 2 DRP EACH EYE (06:13)
[2020-09-22 06:21] LABS: Bedside Glucose 170 mg/dL (70-110)
--- NOTE | 2020-09-22 08:41 | CASEMGMT ---
Social Work Received voicemail that [facility] is unable to accept pt. Referred to [facility]. Home wound vac is being placed this date. Pt notified and agreeable. MARTIN AlmodovarW
[2020-09-22] MEDS: Gabapentin 300 MG Capsule 900 MG PO ×2 (08:48→11:49)
[2020-09-22] MEDS: Iron Polysaccharide Complex 150 MG CAPSULE PO (08:48)
[2020-09-22] MEDS: Insulin Lispro 100 UNIT/ML INSULN.PEN 15 UNIT SC ×2 (08:48→11:49)
[2020-09-22 10:00] VITALS: PULSE 85; RESP 16; O2SAT 98
--- NOTE | 2020-09-22 10:07 | PN_ITS ---
Patient Problems: Active and Suspected Problems (This Medical Record has been edited. Action required.) Chest pain (Acute) Debility (Acute) Costochondritis (Acute) Cellulitis of left foot (Acute) Subjective: Patient was seen this morning for follow up on left foot. She relates overall doing well. No complaints of fever, chills, nausea or vomiting. She is planning to go to her daughter's house today. She also requests toenails be reduced. - Physical Exam Vitals/I&O's: Vital Signs Temp Pulse Resp BP Pulse Ox 97.8 F 80 18 156/64 H 97 09/22/20 05:00 09/22/20 05:00 09/22/20 05:00 09/22/20 05:00 09/22/20 05:00 Oxygen Delivery Method Room Air Weight: 90.974 kg Body Mass Index (BMI) 29.7 Finger Stick Blood Glucose 95 Intake and Output for Last 24 Hours 09/20/20 09/21/20 09/22/20 23:59 23:59 23:59 Intake Total 360 / 360 840 / 840 600 / 600 Balance 360 / 360 840 / 840 600 / 600 General: Alert, Oriented x3, Cooperative, No apparent distress Extremities: Capillary Refill Less than 3 Seconds, No Calf Tenderness, - - wound vac intact to ulcer left foot w/ no erythema, no cellulitis, no evidence of infection present. No other open ulcerations bilateral foot or ankle. Toenails 1,2,3,4 bilateral are long, thick and dystrophic. Musculoskeletal: No Tenderness to Palpation of Joints or Extremities - to the foot or ankle bilateral. Neurological: - - peripheral neuropathy to the foot and ankle bilateral. Laboratory Results 09/21/20 10:55: POC Glucose 179 H 09/21/20 16:52: POC Glucose 127 H 09/21/20 21:22: POC Glucose 188 H 09/22/20 06:06: POC Glucose 170 H Current Medications Acetaminophen (Acetaminophen 500 Mg Tablet) 1,000 mg PO Q6H PRN PRN PRN Reason: Pain Score 1-5 Atorvastatin Calcium (Atorvastatin Calcium 80 Mg Tablet) 80 mg PO QHS TAB Last Admin: 09/21/20 21:08 Dose: 80 mg Documented by: Bisacodyl (Bisacodyl 10 Mg Suppository) 10 mg RECTAL DAILY PRN PRN Reason: Constipation Clopidogrel Bisulfate (Clopidogrel Bisulfate 75 Mg Tablet) 75 mg PO DAILY [facility] Last Admin: 09/22/20 06:11 Dose: 75 mg Documented by: Gabapentin (Gabapentin 300 Mg Capsule) 900 mg PO TIDCM [facility] Last Admin: 09/22/20 08:48 Dose: 900 mg Documented by: Insulin Glargine (Insulin Glargine 100 Units/Ml Pen) 25 units SC BID [facility] Last Admin: 09/22/20 06:11 Dose: 25 u Documented by: Insulin Human Lispro (Insulin Lispro 100 Unit/Ml Insuln.Pen) 15 unit SC TIDCM [facility] Last Admin: 09/22/20 08:48 Dose: 15 u Documented by: Isosorbide Mononitrate (Isosorbide Mononitrate 30 Mg Tablet) 30 mg PO DAILY [facility] Last Admin: 09/22/20 06:11 Dose: 30 mg Documented by: Magnesium Hydroxide (Magnesium Hydroxide 30 Ml Udc) 30 ml PO DAILY PRN PRN Reason: Constipation Last Admin: 09/19/20 16:39 Dose: 30 ml Documented by: Multi-Ingredient Cream (Mineral Oil/Petrolatum,White Jar) 1 applic TOPICAL 0600,2200 [facility]; Protocol Last Admin: 09/22/20 06:10 Dose: Not Given Documented by: Nutritional Formula ([facility]ritional [facility] ([facility]ed) Packet) [facility] Last Admin: 09/22/20 08:49 Dose: 1 packet Documented by: Nutritional Formula (Lactose Free) (Glucerna Shake 120 Ml Liquid) [facility] [place] Last Admin: 09/22/20 08:49 Dose: Not Given Documented by: Nystatin (Nystatin Powder 15gm Bottle) 1 applic TOPICAL 0600,2200 [facility]; Protocol Last Admin: 09/22/20 06:12 Dose: Not Given Documented by: Oxycodone HCl (Oxycodone 5 Mg Tablet) 5 mg PO Q4H PRN PRN PRN Reason: Pain Score 6-10 Last Admin: 09/21/20 12:07 Dose: 5 mg Documented by: Paroxetine HCl (Paroxetine 20 Mg Tablet) 30 mg PO QHS [facility] Last Admin: 09/21/20 21:08 Dose: 30 mg Documented by: Polyethylene Glycol (Polyethylene Glycol 3350 17 Gm Packet) 17 gm PO DAILY [facility] Last Admin: 09/22/20 06:10 Dose: Not Given Documented by: Polysaccharide Iron Complex (Iron Polysaccharide Complex 150 Mg Capsule) 150 mg PO DAILYCM [facility] Last Admin: 09/22/20 08:48 Dose: 150 mg Documented by: Pramipexole Dihydrochloride (Pramipexole Di-Hcl 1 Mg Tablet) 3 mg PO QHS [facility] Last Admin: 09/21/20 21:09 Dose: 3 mg Documented by: Senna/Docusate Sodium (Senna/Docusate Sodium 1 Tablet) 1 tablet PO BID [facility] Last Admin: 09/22/20 06:11 Dose: 1 tablet Documented by: Sodium Chloride (0.9% Saline Lock 10 Ml Syringe) 10 - 40 ml IV UD PRN PRN Reason: SALINE FLUSH Last Admin: 09/17/20 09:37 Dose: 10 ml Documented by: Sodium Chloride (0.9% Saline Lock 10 Ml Syringe) 10 - 40 ml IV UD PRN PRN Reason: SALINE FLUSH Zolpidem Tartrate (Zolpidem Tartrate 5 Mg Tablet) 5 mg PO QHS PRN PRN PRN Reason: INSOMNIA Last Admin: 09/21/20 22:29 Dose: 5 mg Documented by: Medical Necessity - Tobacco Use Smoking Status: Never smoker Tobacco Use: Non-smoker Assessment/Plan All Active Problems (This Medical Record has been edited. Action required.) Ulcer of left foot with muscle involvement without evidence of necrosis (Acute) Diabetic infection of left foot (Acute) Chest pain (Acute) Debility (Acute) Costochondritis (Acute) Cellulitis of left foot (Acute) NSTEMI (non-ST elevated myocardial infarction) (Resolved 09/20/18) History of coronary artery stent placement (Resolved 09/21/18) Abscess of left foot (Resolved) Cellulitis of left foot (Resolved) Chest pain (Resolved) Diabetic foot infection (Resolved) Diarrhea (Resolved) Enteritis, Yersinia enterocolitica (Resolved) Hyperglycemia (Resolved) Intractable nausea and vomiting (Resolved) Malnutrition (Resolved) Necrotizing soft tissue infection (Resolved) Severe sepsis (Resolved) Left plantar foot ulceration down to fascia layer s/p debridement on 09/08/2020 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 Culture reviewed: multiple organisms noted, staph aureus, Enterobacter, and staph hemolyticus - pt completed oral Bactrim. No strict weightbearing left foot. Keep foot elevated. Wound care right lateral ankle: healed at this time. Debrided toenails 1,2,3,4 bilateral using a nail nipper removing bulk, this was done without incident, and medically necessary due to diabetes with neuropathy as well as previous amputation. Discharge planning: patient planning to go to daughter's home. Patient to follow up at wound center in within 10 days, sooner if needed. Podiatry will continue to follow closely.
[2020-09-22 11:31] LABS: Bedside Glucose 255 mg/dL (70-110)
--- NOTE | 2020-09-22 11:45 | NURSING ---
wound photo: left foot
[2020-09-22] MEDS: oxyCODONE 5 MG Tablet PO (12:26)
[2020-09-22 15:26] VITALS: BP 132/61; PULSE 78; RESP 16; TEMP 35.8; O2SAT 96
--- NOTE | 2020-09-24 14:32 | MDS.RN ---
Information for the mds was obtained from review of the clinical record, interview of resident, staff, and direct observation of resident's care.
== END 2020-09-22 16:18 | disposition home health service (06) | DRG 940 ==
PROVIDERS: Admitting Provider Family Medicine Geriatric Medicine; PCP Family Medicine; Visit Provider Family Medicine Geriatric Medicine
DX: Z48.817 Encounter for surgical aftercare following surgery on the skin and subcutaneous tissue (principal); L03.116 Cellulitis of left lower limb; E11.52 Type 2 diabetes mellitus with diabetic peripheral angiopathy with gangrene; I25.10 Atherosclerotic heart disease of native coronary artery without angina pectoris; E78.5 Hyperlipidemia, unspecified; E11.42 Type 2 diabetes mellitus with diabetic polyneuropathy; D50.9 Iron deficiency anemia, unspecified; Z23 Encounter for immunization; L97.529 Non-pressure chronic ulcer of other part of left foot with unspecified severity; E11.621 Type 2 diabetes mellitus with foot ulcer; F32.9 Major depressive disorder, single episode, unspecified; G25.81 Restless legs syndrome; I10 Essential (primary) hypertension; K21.9 Gastro-esophageal reflux disease without esophagitis; F41.9 Anxiety disorder, unspecified; I25.2 Old myocardial infarction; G89.29 Other chronic pain; I25.5 Ischemic cardiomyopathy; E11.65 Type 2 diabetes mellitus with hyperglycemia; E66.9 Obesity, unspecified; Z68.32 Body mass index [BMI] 32.0-32.9, adult
CPT/HCPCS: 36415; 80048; 82962; 85025; 87426; 87635; 97110; 97116; 97162; 97166; 97530; 97535; 97802; G0009; J7030; 90670; A4216; U0003

== ENCOUNTER 2020-11-04 09:00 | Outpatient (RCR) | payer MEDICARE, SELFPAY ==
[2018-09-21 13:23] VITALS: BMI 29.3
[2020-09-12 13:43] VITALS: BMI 29.7
[2020-10-14 08:22] VITALS: BP 166/86; PULSE 102; RESP 20; TEMP 37; BMI 32.4
--- NOTE | 2020-10-14 09:10 | HP.PCM_ITS ---
(1) Ulcer of right ankle Status: Acute Code(s): L97.319 - Non-pressure chronic ulcer of right ankle with unspecified severity (2) Diabetic polyneuropathy Status: Chronic Code(s): E11.42 - Type 2 diabetes mellitus with diabetic polyneuropathy (3) Foot ulcer, left Status: Chronic Code(s): L97.529 - Non-pressure chronic ulcer of other part of left foot with unspecified severity (4) Obesity Status: Chronic Qualifiers: Code(s): E66.9 - Obesity, unspecified (5) RLS (restless legs syndrome) Status: Chronic Code(s): G25.81 - Restless legs syndrome (6) Uncontrolled type II diabetes mellitus Status: Chronic Qualifiers: Code(s): E11.65 - Type 2 diabetes mellitus with hyperglycemia History of Present Illness Date of Service: 10/14/20 Chief Complaint: Right ankle diabetic ulcer. left foot ulcer History of Wound: Patient is a 55-year-old female who presents to the clinic for follow-up of hospital stay for a left foot chronic ulceration. Patient had an I&D performed in the hospital by Dr. Guadarrama on 09/08/2020. That time patient was noted to have infection to left foot wound with Staphylococcus and Enterobacter which was treated during her stay at the hospital and TCU. Patient has had this ulceration for quite some time. 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 Patient also was noted to have bilateral varus foot deformity. Patient has a noted history of poor compliance of medical recommendations. Patient presents to the office ambulating with the assistance of crutches but is still putting weight through her left foot even though instructed not to put any weight to her left foot. Patient was noted to have course of antibiotics while in the hospital. Since being discharged from the hospital patient has missed several of her follow-up appointments including here at the wound care center as well as with her primary care physician. She states issues with transportation. Patient relates not being able to get her medications after discharge including insulin and had her blood sugar get out of control during that period up to 600. Patient states that she did not call anyone or go to the emergency department when she found her blood sugar being 600. She states that since then she has been able to get her insulins and her blood sugar has been running more around the 200s which is normal for her. Patient states that she still doing her wound VAC and with nursing coming out to assist as well as physical therapy and Occupational Therapy. Patient states that even with their assistance she is unable to not put weight through her foot. Patient states that she had a knee scooter and previously but no longer has access to it. Encouraged patient to try to get access again to a knee scooter as this will help alleviate pressure to the area. Patient also relates that she is largely nonweightbearing by sitting in a chair or on the couch. She does admit to external rotation of the lower extremities which could be a contributing factor to new ulcer breakdown of the right ankle. She also admits to having offloading boot that she does not wear at night as she states she kicks it off due to her restless leg syndrome. Patient states that she is living with her son or daughter and going between their houses as she is not able to return home alone at this time. Patient also relates having new ulceration to the right lateral ankle that began in the middle of September 2020 she believes that this started while sleeping with her restless leg syndrome. Patient denies any nausea fever vomiting chills chest pain shortness of breath. Patient states that she has had a cough since the middle of September 2020 and has not seen anyone for it. Patient was encouraged to follow-up with primary care physician or go to urgent care or emergency room regarding the cough as this is a concerning symptom for COVID-19. Patient states that she has had previous COVID-19 testing which were all negative but this was prior to onset of cough Past Medical History Past Medical History: Chronic Problems (This Medical Record has been edited. Action required.) Anemia (Chronic) Anxiety and depression (Chronic) RLS (restless legs syndrome) (Chronic) Uncontrolled type II diabetes mellitus (Chronic) Obesity (Chronic) Foot ulcer, left (Chronic) Coronary artery disease (Chronic) Hypertension (Chronic) Diabetic polyneuropathy (Chronic) GERD (gastroesophageal reflux disease) (Chronic) Depression (Chronic) Anxiety (Chronic) Diabetes mellitus (Chronic) Atherosclerosis of [place] coronary artery of [place] heart without angina pectoris (Chronic) Essential (primary) hypertension (Chronic) HLD (hyperlipidemia) (Chronic) Surgical History: angioplasty - with stent., - - Severel R foot toe amputations and I+Ds, BL carpal tunnel surgery 1994, right shoulder surgery in 1994, section x2, most recently LLE I+D, Left foot ulcer debridement. Allergies/Adverse Reactions: Allergies Penicillins Allergy (Verified 10/14/20 08:43) Shortness of breath vancomycin Allergy (Verified 10/14/20 08:43) Itching metronidazole Adverse Reaction (Verified 10/14/20 08:43) Nausea OXYCONTIN Allergy (Uncoded 08/31/20 22:02) Shortness of breath Home Medications: Ambulatory Orders Medication Instructions Recorded Gabapentin [Neurontin] 900 mg PO TIDCM 09/20/18 atorvastatin 80 mg tablet 80 mg PO QHS #90 tab 11/30/19 clopidogrel 75 mg tablet 75 mg PO DAILY #90 tab 11/30/19 Insulin Lispro [Humalog KwikPen] 20 unit SC TIDCM 08/31/20 Insulin Glargine [Lantus SoloStar 35 units SC BID 09/12/20 Pen] Iron Polysaccharide Complex 150 mg PO DAILYCM 09/12/20 [Ferrex 150] Isosorbide Mononitrate [Isosorbide 30 mg PO DAILY 09/12/20 Mononitrate ER] Paroxetine [Paxil] 20 mg PO QHS 09/12/20 Pramipexole Di-HCl [Mirapex] 1.5 mg PO BID 09/12/20 Acetaminophen [Tylenol] 1,000 mg PO Q6H PRN PRN tab 09/19/20 Oxycodone [Oxyir] 5 mg PO Q4H PRN PRN 3 Days #18 tab 09/19/20 Peg 400/Hypromellose/Glycerin 2 drp EACH EYE Q1H PRN bottle 09/19/20 [Artificial Tears] Polyethylene Glycol 3350 [Miralax] 17 gm PO DAILY #30 packet 09/19/20 - Family History Paternal - - Patient states her father when she was 5 years old, denies known medical history, denies known cardiac history. Maternal Cancer - Patient had a brother who had testicular cancer; and later cancer in his stomach., Diabetes, Hypertension, - - Her mother at the age of 67 to a blood clot to the brain. She had had multiple strokes preceding that. Patient had 3 brothers who had bypass surgery in their 50s. Sibling - - She has one brother who is secondary to cancer and she does not know what kind of cancer he had. She also has 3 brothers with a history of cardiovascular disease, stents and coronary artery bypass grafting. Smoking Status: Never smoker Review of Systems Constitutional: Denies: Chills Cardiovascular: Denies: Chest Pain Respiratory: Reports: Cough. Denies: Shortness of Breath Gastrointestinal: Denies: Diarrhea, Nausea, Vomiting Musculoskeletal: Reports: Foot Pain Skin: Reports: Wounds - Bilateral lower extremities Neurological: Reports: Numbness, Tingling Subjective: Patient seen and examined bedside. Patient denies any new pedal complaints. Patient denies any nausea, fever, and chest pain, shortness of breath, chills, streaking, purulence, vomiting. Patient relates approximately 2 weeks of cough that she has not had checked out. - Physical Exam Vital Signs Temp Pulse Resp BP 98.6 F 102 H 20 H 166/86 H 10/14/20 08:22 10/14/20 08:22 10/14/20 08:22 10/14/20 08:22 General: Alert, Oriented x3 HEENT: Atraumatic Extremities: No clubbing, No cyanosis, Capillary Refill Less than 3 Seconds, No Calf Tenderness, Edema - Mild, Peripheral Pulses Normal, Tenderness, - - Bilateral varus foot deformity Skin: Ulcer/ Wound - Right lateral ankle and left plantar foot. Mild periwound erythema. No malodor, purulence, probing to bone, streaking, or other signs of infection. Skin is atrophic and hairless. Granular base with serosanguineous drainage after debridement Musculoskeletal: No Tenderness to Palpation of Joints or Extremities, - - Bilateral fifth ray amputation Neurological: - - Absent epicritic sensation consistent with patient's neuropathy Psych/Mental Status: Normal Affect, Appropriate Debridement Note Wound debrided: Right lateral ankle Laterality: Right Wound Grade/Stage: Freedman stage I Type of Debridement: Excisional debridement Anesthesia Used: 4% Lidocaine Solution Depth: in the subcutaneous layer Percentage of wound debrided: 100 Instrument Used: #15 blade Tissue Removed: Tissue removed includes fibrous, devitalized, biofilm, and slough tissue Severity: Fat Layer Exposed Amount of bleeding with debridement: Mild Bleeding Controlled with: Pressure Patient tolerated procedure well - Additional Wound Wound debrided: Plantar foot Laterality: Left Wound Grade/Stage: Freedman 2 Type of Debridement: Excisional debridement Anesthesia Used: 4% Lidocaine Solution Depth: in the subcutaneous layer Percentage of wound debrided: 100 Instrument Used: #15 blade Tissue Removed: Tissue removed includes fibrous, devitalized, biofilm, and slough tissue Severity: Fat Layer Exposed Amount of bleeding with debridement: Mild Bleeding Controlled with: Pressure Patient tolerated procedure: Patient tolerated procedure well Assessment/Plan Active Problems (This Medical Record has been edited. Action required.) Ulcer of right ankle (Acute) RLS (restless legs syndrome) (Chronic) Uncontrolled type II diabetes mellitus (Chronic) Obesity (Chronic) Foot ulcer, left (Chronic) Diabetic polyneuropathy (Chronic) Assessment: Diabetic ulcer of right ankle -recurrent and no signs of infection, grade 1. Diabetic ulcer plantar left foot-recurrent no signs of infection, grade 1. Diabetic foot ulcer associated with type 2 diabetes mellitus. Hemoglobin A1c 9.17 Aug 2020. varus deformity bilateral lower extremities. malnutrition suspected. delayed healing Plan: Patient was carefully examined and evaluated in detail today. Subcutaneous excisional debridement of both ulcers done as noted in clinical panel. Procedure was well-tolerated. Her new right lateral ankle ulcer site is noted and she is reassured no signs of infection are seen. Discussed that this is probably from pressure either during sleep or from external rotation while on the couch all day. Discussed various options of offloading including offloading boot. Patient states that she has an offloading boot that she kicks off while sleeping as well as pillows that end up being on the floor when she wakes up when trying to offload in those manners. Discussed using the boot will sitting on the couch to at least help then. I recommend changing the dressing twice a day with nursing visits with Fibracol and will padding the area to help offload it with ABDs. Patient is using a wound VAC on the left plantar foot ulceration. Discussed the importance of nonweightbearing to the left lower extremity so that the wound VAC does not shift and the seal broken so that it can assist in the healing process. Patient was noted to ambulate into the office with weight through the left lower extremity with the assistance of crutches today. He was also noted that the wound VAC had shifted to the foam was no longer adherent to the wound bed surface. Likely due to patient walking on her foot. Wound VAC is to be changed every other day by alf and patient's home health care. Patient is also getting home physical therapy and Occupational Therapy. Discussed with patient working with them to assist with the nonweightbearing to the left lower extremity issues. Patient states that she has to navigate stairs when at her daughter's house which requires her to crawl on her knees. Patient has a history of delayed and nonhealing as well as poor compliance. She appears to be stabilized from an infection standpoint and has had prior bone biopsies, wound culture, and intervention with infectious disease. I do not recommend any antibiotics today. Her lab work was reviewed within the past 3 months. She has suspected adequate vascular perfusion for healing per her recent noninvasive vascular studies 09/01/2020 with triphasic waveforms noted. Patient's hemoglobin A1c was 9.8 in August 2020. Offloading strongly recommended. Patient remains noncompliant in this. Will consider various offloading shoe options. She admits she does not offload at home and I advised her to take some accountability for this part of her healing plan. Optimal blood sugar control and increased protein intake also discussed. Discussed the importance of following up with primary care physician as well to help obtain optimal blood sugar control. All questions were answered and she was advised to call with any further questions or concerns. All signs and symptoms of local and systemic infection were discussed with the patient today. Should also be noted that patient missed several weeks of appointments to the wound care center as well as primary care physician office after discharge from TCU. Patient cites transportation issues being the reason. Discussed with the patient that she knew her wound was getting worse but was not following up with anyone to change that and she needs to take some responsibility for her care as well. To return to the wound healing center 1 week or call sooner she has any questions or concerns.
--- NOTE | 2020-10-14 11:04 | HP.PCM_ITS ---
(1) Ulcer of right ankle Status: Acute Qualifiers: Non-pressure ulcer stage: with fat layer exposed Qualified Code(s): L97.312 - Non-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 Code(s): L97.319 - Non-pressure chronic ulcer of right ankle with unspecified severity (2) Diabetic polyneuropathy Status: Chronic Qualifiers: Diabetes mellitus type: type 2 Qualified Code(s): E11.42 - Type 2 diabetes mellitus with diabetic polyneuropathy Code(s): E11.42 - Type 2 diabetes mellitus with diabetic polyneuropathy (3) Foot ulcer, left Status: Chronic Qualifiers: Non-pressure ulcer stage: with bone involvement without evidence of necrosis Qualified Code(s): L97.526 - Non-pressure chronic ulcer of other part of left foot with bone involvement without evidence of necrosis Code(s): L97.529 - Non-pressure chronic ulcer of other part of left foot with unspecified severity (4) Obesity Status: Chronic Qualifiers: Code(s): E66.9 - Obesity, unspecified (5) RLS (restless legs syndrome) Status: Chronic Code(s): G25.81 - Restless legs syndrome (6) Uncontrolled type II diabetes mellitus Status: Chronic Qualifiers: Glycemic state: with hyperglycemia Code(s): E11.65 - Type 2 diabetes mellitus with hyperglycemia History of Present Illness Date of Service: 10/14/20 Chief Complaint: Right ankle diabetic ulcer. left foot ulcer History of Wound: Patient is a 55-year-old female who presents to the clinic for follow-up of hospital stay for a left foot chronic ulceration. Patient had an I&D performed in the hospital by Dr. Guadarrama on 09/08/2020. That time patient was noted to have infection to left foot wound with Staphylococcus and Enterobacter which was treated during her stay at the hospital and TCU. Patient has had this ulceration for quite some time. 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 Patient also was noted to have bilateral varus foot deformity. Patient has a noted history of poor compliance of medical recommendations. Patient presents to the office ambulating with the assistance of crutches but is still putting weight through her left foot even though instructed not to put any weight to her left foot. Patient was noted to have course of antibiotics while in the hospital. Since being discharged from the hospital patient has missed several of her follow-up appointments including here at the wound care center as well as with her primary care physician. She states issues with transportation. Patient relates not being able to get her medications after discharge including insulin and had her blood sugar get out of control during that period up to 600. Patient states that she did not call anyone or go to the emergency department when she found her blood sugar being 600. She states that since then she has been able to get her insulins and her blood sugar has been running more around the 200s which is normal for her. Patient states that she still doing her wound VAC and with nursing coming out to assist as well as physical therapy and Occupational Therapy. Patient states that even with their assistance she is unable to not put weight through her foot. Patient states that she had a knee scooter and previously but no longer has access to it. Encouraged patient to try to get access again to a knee scooter as this will help alleviate pressure to the area. Patient also relates that she is largely nonweightbearing by sitting in a chair or on the couch. She does admit to external rotation of the lower extremities which could be a contributing factor to new ulcer breakdown of the right ankle. She also admits to having offloading boot that she does not wear at night as she states she kicks it off due to her restless leg syndrome. Patient states that she is living with her son or daughter and going between their houses as she is not able to return home alone at this time. Patient also relates having new ulceration to the right lateral ankle that began in the middle of September 2020 she believes that this started while sleeping with her restless leg syndrome. Patient denies any nausea fever vomiting chills chest pain shortness of breath. Patient states that she has had a cough since the middle September 2020 and has not seen anyone for it. Patient was encouraged to follow-up with primary care physician or go to urgent care or emergency room regarding the cough as this is a concerning symptom for COVID-19. Patient states that she has had previous COVID-19 testing which were all negative but this was prior to onset of cough. Patient noted to have missed several appointments since being discharged from the hospital and TCU. Patient relates that the wound has worsened during that time. Past Medical History Past Medical History: Chronic Problems (This Medical Record has been edited. Action required.) Anemia (Chronic) Anxiety and depression (Chronic) RLS (restless legs syndrome) (Chronic) Uncontrolled type II diabetes mellitus (Chronic) Obesity (Chronic) Foot ulcer, left (Chronic) Coronary artery disease (Chronic) Hypertension (Chronic) Diabetic polyneuropathy (Chronic) GERD (gastroesophageal reflux disease) (Chronic) Depression (Chronic) Anxiety (Chronic) Diabetes mellitus (Chronic) Atherosclerosis of [place] coronary artery of [place] heart without angina pectoris (Chronic) Essential (primary) hypertension (Chronic) HLD (hyperlipidemia) (Chronic) Surgical History: angioplasty - with stent., - - Severel R foot toe amputations and I+Ds, BL carpal tunnel surgery 1994, right shoulder surgery in 1994, section x2, most recently LLE I+D, Left foot ulcer debridement. Allergies/Adverse Reactions: Allergies Penicillins Allergy (Verified 10/14/20 08:43) Shortness of breath vancomycin Allergy (Verified 10/14/20 08:43) Itching metronidazole Adverse Reaction (Verified 10/14/20 08:43) Nausea OXYCONTIN Allergy (Uncoded 08/31/20 22:02) Shortness of breath Home Medications: Ambulatory Orders Medication Instructions Recorded Gabapentin [Neurontin] 900 mg PO TIDCM 09/20/18 atorvastatin 80 mg tablet 80 mg PO QHS #90 tab 11/30/19 clopidogrel 75 mg tablet 75 mg PO DAILY #90 tab 11/30/19 Insulin Lispro [Humalog KwikPen] 20 unit SC TIDCM 08/31/20 Insulin Glargine [Lantus SoloStar 35 units SC BID 09/12/20 Pen] Iron Polysaccharide Complex 150 mg PO DAILYCM 09/12/20 [Ferrex 150] Isosorbide Mononitrate [Isosorbide 30 mg PO DAILY 09/12/20 Mononitrate ER] Paroxetine [Paxil] 20 mg PO QHS 09/12/20 Pramipexole Di-HCl [Mirapex] 1.5 mg PO BID 09/12/20 Acetaminophen [Tylenol] 1,000 mg PO Q6H PRN PRN tab 09/19/20 Oxycodone [Oxyir] 5 mg PO Q4H PRN PRN 3 Days #18 tab 09/19/20 Peg 400/Hypromellose/Glycerin 2 drp EACH EYE Q1H PRN bottle 09/19/20 [Artificial Tears] Polyethylene Glycol 3350 [Miralax] 17 gm PO DAILY #30 packet 09/19/20 - Family History Paternal - - Patient states her father when she was 5 years old, denies known medical history, denies known cardiac history. Maternal Cancer - Patient had a brother who had testicular cancer; and later cancer in his stomach., Diabetes, Hypertension, - - Her mother at the age of 67 to a blood clot to the brain. She had had multiple strokes preceding that. Patient had 3 brothers who had bypass surgery in their 50s. Sibling - - She has one brother who is secondary to cancer and she does not know what kind of cancer he had. She also has 3 brothers with a history of cardiovascular disease, stents and coronary artery bypass grafting. Smoking Status: Never smoker Review of Systems Constitutional: Denies: Chills Cardiovascular: Denies: Chest Pain Respiratory: Reports: Cough. Denies: Shortness of Breath Musculoskeletal: Reports: Foot Pain - left Skin: Reports: Wounds - Left plantar foot and right lateral ankle Neurological: Reports: Numbness, Tingling Subjective: Patient seen and examined bedside. Patient denies any new pedal complaints. Patient denies any nausea, fever, and chest pain, shortness of breath, chills, streaking, purulence, vomiting. Patient admits to new onset cough of about 2- week duration that she has not had checked out. - Physical Exam Vital Signs Temp Pulse Resp BP 98.6 F 102 H 20 H 166/86 H 10/14/20 08:22 10/14/20 08:22 10/14/20 08:22 10/14/20 08:22 General: Alert, Oriented x3 HEENT: Atraumatic Extremities: No clubbing, No cyanosis, Capillary Refill Less than 3 Seconds, No Calf Tenderness, Diminished Peripheral Pulses, Edema - Mild, Tenderness - Left foot, - - Bilateral varus foot deformity Skin: Ulcer/ Wound - Right lateral ankle and left plantar foot. Mild periwound erythema. No malodor, purulence, probing to bone, streaking, or other signs of infection. Skin is atrophic and hairless. Granular base with serosanguineous drainage after debridement. Maceration noted to left plantar periwound Wound Measurements and Assessment WC - Nurse 1 - General Ulcer Measurement Start: 10/14/20 08:22 Freq: Status: Active Protocol: Activity Type Activity Date Activity User E-Sign Co-Sign Detail Recorded Client Recorded Date Recorded By Document 10/14/20 08:22 DL [id number] 10/14/20 08:39 DL 10/14/20 08:22 Wound Center Nurse 1 [Ulcer Assessment] #17 R Lat Ankle -Current Size (cm) - Length 2.6 -Current Size (cm) - Width 2 -Current Size (cm) - Depth 0.3 -Total Square Cm 5.2 -Photo Taken Yes -Exudate Amt Medium -Exudate Type Serosanguineous -Wound Margin Thickened -Granulation Amt Medium (34-66%) -Granulation Quality Onyx,Red -Necrosis Amt Medium (34-66%) -Necrotic Tissue Type Adherent Slough -Structure Exposed N/A -Texture (Natacha-wound Skin Appearance) Scarring -Moisture (Natacha-wound Skin Appearance No Abnormality ) -Color (Natacha-wound Skin Appearance) Rubor -Temperature (Natacha-wound Skin No Abnormality Appearance) (Pt Warm) -Tenderness on Palpation (Natacha-wound No Skin Appearance) -Ulcer Cleansing Wound Cleanser -Foul Odor after Cleansing No -Anesthetic Used 4% Lidocaine Solution #16 L Plantar med foot -Current Size (cm) - Length 3 -Current Size (cm) - Width 4.9 -Current Size (cm) - Depth 1 -Total Square Cm 14.7 -Photo Taken Yes -Exudate Amt Medium -Exudate Type Serosanguineous -Wound Margin Thickened -Granulation Amt Large (67-100%) -Granulation Quality Red -Necrosis Amt Small (1-33%) -Necrotic Tissue Type Adherent Slough -Structure Exposed N/A -Texture (Natacha-wound Skin Appearance) Localized Edema ,Scarring -Moisture (Natacha-wound Skin Appearance Maceration ) -Color (Natacha-wound Skin Appearance) Rubor -Temperature (Natacha-wound Skin No Abnormality Appearance) (Pt Warm) -Tenderness on Palpation (Natacha-wound No Skin Appearance) -Ulcer Cleansing Wound Cleanser -Foul Odor after Cleansing No -Anesthetic Used 4% Lidocaine Solution [Edema Assessment] -Right Calf (cm) 36.4 -Right Ankle (cm) 21.5 -Left Calf (cm) 36.5 -Left Ankle (cm) 22.3 WC - Nurse 2 - General Ulcer CM Notes Start: 10/14/20 08:22 Freq: Status: Active Protocol: Activity Type Activity Date Activity User E-Sign Co-Sign Detail Recorded Client Recorded Date Recorded By Document 10/14/20 08:56 MW [id number] 10/14/20 09:10 MW 10/14/20 08:56 Wound Center Nurse 2 [Procedure/Treatment] #17 R Lat Ankle -Time 08:56 -Correct Patient Yes -Correct Side, Site, Position Yes -Correct Procedure Yes -Procedure Performed Yes -Type of Procedure Debridement -Clinical Debridement Subcutaneous -Tissue Removed Subcutaneous -Post Debridement (cm) - Length 2.8 -Post Debridement (cm) - Width 1.8 -Post Debridement (cm) - Depth 0.3 -Total Square (Post) (cm) 5.04 -Area of Debridement (cm) - Length 2.8 -Area of Debridement (cm) - Width 1.8 -Total Square (Area) (cm) 5.04 -Tunneling No -Undermining/Tunneling No -Circular Undermining No -Wound/Ulcer Outcome Not Healed -Ulcer Cleansing Rinsed/ Irrigated with Saline -Foul Odor after Cleansing No -Bioengineered Tissue No -Bleeding Controlled with Pressure -Offloading No -Treatment Response Procedure Tolerated Well -Debridement - Subq, 1st 20sq cm Yes #16 L Plantar med foot -Time 08:56 -Correct Patient Yes -Correct Side, Site, Position Yes -Correct Procedure Yes -Procedure Performed Yes -Type of Procedure Debridement -Clinical Debridement Subcutaneous -Tissue Removed Subcutaneous -Post Debridement (cm) - Length 3.4 -Post Debridement (cm) - Width 4.5 -Post Debridement (cm) - Depth 1.1 -Total Square (Post) (cm) 15.30 -Area of Debridement (cm) - Length 3.4 -Area of Debridement (cm) - Width 4.5 -Total Square (Area) (cm) 15.30 -Tunneling No -Undermining/Tunneling No -Circular Undermining No -Wound/Ulcer Outcome Not Healed -Ulcer Cleansing Rinsed/ Irrigated with Saline -Foul Odor after Cleansing No -Bioengineered Tissue No -Bleeding Controlled with Pressure -Offloading No -Debridement - Subq, 1st 20sq cm No [See Physician Procedure note for Specifics] Pain Scale: 0-10 Numeric [Pain] -Is Patient Pain Free? Yes WC - Nurse 3 - General Ulcer D/C NN Start: 10/14/20 08:22 Freq: Status: Active Protocol: Activity Type Activity Date Activity User E-Sign Co-Sign Detail Recorded Client Recorded Date Recorded By Document 10/14/20 10:21 DL [id number] 10/14/20 10:23 DL 10/14/20 10:21 Wound Care Nurse 3 [Wound Dressing] #17 R Lat Ankle -Ulcer Cleansing Rinsed/ Irrigated with Saline -Foul Odor after Cleansing No -Primary Dressing Applied Fibracol Plus 4x4 -Primary Dressing Covered/Secured Dry Gauze & with Roll Gauze, Secured with Tape -Fibracol Plus 4x4 1 #16 L Plantar med foot -Ulcer Cleansing Rinsed/ Irrigated with Saline -Foul Odor after Cleansing No -Other Dressing betadine -Primary Dressing Covered/Secured Dry Gauze & with Roll Gauze, Secured with Tape [Post Procedure Tolerated] -Treatment Response Procedure Tolerated Well Pain Scale: 0-10 Numeric [Pain] -Is Patient Pain Free? Yes WC - Visit Discharge [Visit Discharge Information] -Discharge Condition Stable -Ambulatory Status Ambulatory, Crutches -Transportation hosp trans -Notes: Pt to resume VAC drsg via tomorrow. [Facility Notification] -Facility Type Home Health -Orders Sent Yes Musculoskeletal: No Tenderness to Palpation of Joints or Extremities, Muscle Wasting, - - Bilateral fifth ray amputation Neurological: - - Lack of epicritic sensation consistent with neuropathy Psych/Mental Status: Normal Affect, Appropriate Debridement Note Post-Debridement Measurements/Treatment WC - Nurse 2 - General Ulcer CM Notes Start: 10/14/20 08:22 Freq: Status: Active Protocol: Activity Type Activity Date Activity User E-Sign Co-Sign Detail Recorded Client Recorded Date Recorded By Document 10/14/20 08:56 MW [id number] 10/14/20 09:10 MW 10/14/20 08:56 Wound Center Nurse 2 #17 R Lat Ankle -Time 08:56 -Correct Patient Yes -Correct Side, Site, Position Yes -Correct Procedure Yes -Procedure Performed Yes -Type of Procedure Debridement -Clinical Debridement Subcutaneous -Tissue Removed Subcutaneous -Post Debridement (cm) - Length 2.8 -Post Debridement (cm) - Width 1.8 -Post Debridement (cm) - Depth 0.3 -Total Square (Post) (cm) 5.04 -Area of Debridement (cm) - Length 2.8 -Area of Debridement (cm) - Width 1.8 -Total Square (Area) (cm) 5.04 -Tunneling No -Undermining/Tunneling No -Circular Undermining No -Wound/Ulcer Outcome Not Healed -Ulcer Cleansing Rinsed/ Irrigated with Saline -Foul Odor after Cleansing No -Bioengineered Tissue No -Bleeding Controlled with Pressure -Offloading No -Treatment Response Procedure Tolerated Well -Debridement - Subq, 1st 20sq cm Yes #16 L Plantar med foot -Time 08:56 -Correct Patient Yes -Correct Side, Site, Position Yes -Correct Procedure Yes -Procedure Performed Yes -Type of Procedure Debridement -Clinical Debridement Subcutaneous -Tissue Removed Subcutaneous -Post Debridement (cm) - Length 3.4 -Post Debridement (cm) - Width 4.5 -Post Debridement (cm) - Depth 1.1 -Total Square (Post) (cm) 15.30 -Area of Debridement (cm) - Length 3.4 -Area of Debridement (cm) - Width 4.5 -Total Square (Area) (cm) 15.30 -Tunneling No -Undermining/Tunneling No -Circular Undermining No -Wound/Ulcer Outcome Not Healed -Ulcer Cleansing Rinsed/ Irrigated with Saline -Foul Odor after Cleansing No -Bioengineered Tissue No -Bleeding Controlled with Pressure -Offloading No -Debridement - Subq, 1st 20sq cm No Pain Scale: 0-10 Numeric Is Patient Pain Free? Yes WC - Nurse 3 - General Ulcer D/C NN Start: 10/14/20 08:22 Freq: Status: Active Protocol: Activity Type Activity Date Activity User E-Sign Co-Sign Detail Recorded Client Recorded Date Recorded By Document 10/14/20 10:21 [email or web address] [id number] 10/14/20 10:23 DL 10/14/20 10:21 Wound Care Nurse 3 #17 R Lat Ankle -Ulcer Cleansing Rinsed/ Irrigated with Saline -Foul Odor after Cleansing No -Primary Dressing Applied Fibracol Plus 4x4 -Primary Dressing Covered/Secured with Dry Gauze & Roll Gauze, Secured with Tape -Fibracol Plus 4x4 1 #16 L Plantar med foot -Ulcer Cleansing Rinsed/ Irrigated with Saline -Foul Odor after Cleansing No -Other Dressing betadine -Primary Dressing Covered/Secured with Dry Gauze & Roll Gauze, Secured with Tape Treatment Response Procedure Tolerated Well Pain Scale: 0-10 Numeric Is Patient Pain Free? Yes WC - Visit Discharge Discharge Condition Stable Ambulatory Status Ambulatory, Crutches Transportation hosp trans Notes: Pt to resume VAC drsg via tomorrow. Facility Type Home Health Orders Sent Yes Wound debrided: Lateral ankle Laterality: Right Wound Grade/Stage: Freedman stage I Type of Debridement: Excisional debridement Anesthesia Used: 4% Lidocaine Solution Depth: in the subcutaneous layer Percentage of wound debrided: 100 Instrument Used: #15 blade Tissue Removed: Tissue removed includes fibrous, devitalized, biofilm, and slough tissue Severity: Fat Layer Exposed Amount of bleeding with debridement: Mild Bleeding Controlled with: Pressure Patient tolerated procedure well - Additional Wound Wound debrided: Plantar lateral foot Laterality: Left Wound Grade/Stage: Freedman 2 Type of Debridement: Excisional debridement Anesthesia Used: 4% Lidocaine Solution Depth: in the subcutaneous layer Percentage of wound debrided: 100 Instrument Used: #15 blade Tissue Removed: Tissue removed includes fibrous, devitalized, biofilm, and slough tissue Severity: Fat Layer Exposed Amount of bleeding with debridement: Mild Bleeding Controlled with: Pressure Patient tolerated procedure: Patient tolerated procedure well Assessment/Plan Active Problems (This Medical Record has been edited. Action required.) Ulcer of right ankle (Acute) RLS (restless legs syndrome) (Chronic) Uncontrolled type II diabetes mellitus (Chronic) Obesity (Chronic) Foot ulcer, left (Chronic) Diabetic polyneuropathy (Chronic) Assessment: Diabetic ulcer of right ankle -recurrent and no signs of infection, grade 1. Diabetic ulcer plantar left foot-recurrent no signs of infection, grade 2. Diabetic foot ulcer associated with type 2 diabetes mellitus. Hemoglobin A1c 9.17 Aug 2020. varus deformity bilateral lower extremities. malnutrition suspected. delayed healing Plan: Patient was carefully examined and evaluated in detail today. Subcutaneous excisional debridement of both ulcers done as noted in clinical panel. Procedure was well-tolerated. Her new right lateral ankle ulcer site is noted a nd she is reassured no signs of infection are seen. Discussed that this is probably from pressure either during sleep or from external rotation while on the couch all day. Discussed various options of offloading including offloading boot. Patient states that she has an offloading boot that she kicks off while sleeping as well as pillows that end up being on the floor when she wakes up when trying to offload in those manners. Discussed using the boot will sitting on the couch to at least help then. I recommend changing the dressing twice a day with nursing visits with Ricardo and will padding the area to help offload it with ABDs. Patient is using a wound VAC on the left plantar foot ulceration. Discussed the importance of nonweightbearing to the left lower extremity so that the wound VAC does not shift and the seal broken so that it can assist in the healing process. Patient was noted to ambulate into the office with weight through the left lower extremity with the assistance of crutches today. He was also noted that the wound VAC had shifted to the foam was no longer adherent to the wound bed surface. Likely due to patient walking on her foot. Wound VAC is to be changed every other day by assisted and patient's home health care. Patient is also getting home physical therapy and Occupational Therapy. Discussed with patient working with them to assist with the nonweightbearing to the left lower extremity issues. Patient states that she has to navigate stairs when at her daughter's house which requires her to crawl on her knees. Patient has a history of delayed and nonhealing as well as poor compliance. She appears to be stabilized from an infection standpoint and has had prior bone biopsies, wound culture, and intervention with infectious disease. I do not recommend any antibiotics today. Her lab work was reviewed within the past 3 months. She has suspected adequate vascular perfusion for healing per her recent noninvasive vascular studies 09/01/2020 with triphasic waveforms noted. Patient's hemoglobin A1c was 9.8 in August 2020. Offloading strongly recommended. Patient remains noncompliant in this. Will consider various offloading shoe options. She admits she does not offload at home and I advised her to take some accountability for this part of her healing plan. Optimal blood sugar control and increased protein intake also discussed. Discussed the importance of following up with primary care physician as well to help obtain optimal blood sugar control. All questions were answered and she was advised to call with any further questions or concerns. All signs and symptoms of local and systemic infection were discussed with the patient today. Should also be noted that patient missed several weeks of appointments to the wound care center as well as primary care physician office after discharge from [facility]. Patient cites transportation issues being the reason. Discussed with the patient that she knew her wound was getting worse but was not following up with anyone to change that and she needs to take some responsibility for her care as well. To return to the wound healing center 1 week or call sooner she has any questions or concerns.
[2020-10-21 09:14] VITALS: BP 142/70; PULSE 94; RESP 18; TEMP 36.3; BMI 32.4
--- NOTE | 2020-10-21 09:47 | PCM.WC.PN ---
(1) Ulcer of right ankle Status: Acute Qualifiers: Non-pressure ulcer stage: with fat layer exposed Qualified Code(s): L97.312 - Non-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 Code(s): L97.319 - Non-pressure chronic ulcer of right ankle with unspecified severity (2) Diabetic polyneuropathy Status: Chronic Qualifiers: Diabetes mellitus type: type 2 Qualified Code(s): E11.42 - Type 2 diabetes mellitus with diabetic polyneuropathy Code(s): E11.42 - Type 2 diabetes mellitus with diabetic polyneuropathy (3) Foot ulcer, left Status: Chronic Qualifiers: Non-pressure ulcer stage: with bone involvement without evidence of necrosis Qualified Code(s): L97.526 - Non-pressure chronic ulcer of other part of left foot with bone involvement without evidence of necrosis Code(s): L97.529 - Non-pressure chronic ulcer of other part of left foot with unspecified severity (4) Obesity Status: Chronic Qualifiers: Code(s): E66.9 - Obesity, unspecified (5) RLS (restless legs syndrome) Status: Chronic Code(s): G25.81 - Restless legs syndrome (6) Uncontrolled type II diabetes mellitus Status: Chronic Qualifiers: Glycemic state: with hyperglycemia Qualified Code(s): E11.65 - Type 2 diabetes mellitus with hyperglycemia Code(s): E11.65 - Type 2 diabetes mellitus with hyperglycemia Type of Wound Date of Service: 10/21/20 Chief Complaint: Right ankle diabetic ulcer. left foot ulcer History of Wound: Patient is a 55-year-old female who presents to the clinic for follow-up of hospital stay for a left foot chronic ulceration. Patient had an I&D performed in the hospital by Dr. Guadarrama on 09/08/2020. That time patient was noted to have infection to left foot wound with Staphylococcus and Enterobacter which was treated during her stay at the hospital and TCU. Patient has had this ulceration for quite some time. 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 Patient also was noted to have bilateral varus foot deformity. Patient has a noted history of poor compliance of medical recommendations. Patient presents to the office ambulating with the assistance of crutches but is still putting weight through her left foot even though instructed not to put any weight to her left foot. Patient was noted to have course of antibiotics while in the hospital. Since being discharged from the hospital patient has missed several of her follow-up appointments including here at the wound care center as well as with her primary care physician. She states issues with transportation. Patient relates not being able to get her medications after discharge including insulin and had her blood sugar get out of control during that period up to 600. Patient states that she did not call anyone or go to the emergency department when she found her blood sugar being 600. She states that since then she has been able to get her insulins and her blood sugar has been running more around the 200s which is normal for her. Patient states that she still doing her wound VAC and with nursing coming out to assist as well as physical therapy and Occupational Therapy. Patient states that even with their assistance she is unable to not put weight through her foot. Patient states that she had a knee scooter and previously but no longer has access to it. Encouraged patient to try to get access again to a knee scooter as this will help alleviate pressure to the area. Patient also relates that she is largely nonweightbearing by sitting in a chair or on the couch. She does admit to external rotation of the lower extremities which could be a contributing factor to ulcer breakdown of the right lateral ankle. She also admits to having offloading boot that she does not wear at night as she states she kicks it off due to her restless leg syndrome. Patient states that she is living with her son or daughter and going between their houses as she is not able to return home alone at this time. She relates that she has a in [place] and visits him for months at a time when she has the funds. Patient also relates having ulceration to the right lateral ankle that began in the middle of September 2020 she believes that this started while sleeping with her restless leg syndrome. Patient states that she has had a cough since the middle September 2020 and has not seen anyone for it. Patient was encouraged to follow-up with primary care physician or go to urgent care or emergency room regarding the cough as this is a concerning symptom for COVID-19. Patient states that she has had previous COVID-19 testing which were all negative but this was prior to onset of cough. She believes that this is just allergies. Patient noted to have missed several appointments since being discharged from the hospital and TCU. Patient relates that the wound has worsened during that time. Especially after falling in a hole while walking in the yard where her foot and dressing got wet. Patient expresses concern over losing her foot. Progress of Wound: Stable, largely unchanged Subjective: Patient seen and examined bedside. Patient denies any new pedal complaints. Patient denies any nausea, fever, chest pain, shortness of breath, chills, streaking, purulence, vomiting. - Physical Exam Vital Signs Temp Pulse Resp BP 97.3 F L 94 18 142/70 H 10/21/20 09:14 10/21/20 09:14 10/21/20 09:14 10/21/20 09:14 General: Alert, Oriented x3 HEENT: Atraumatic Abdomen: Obese Extremities: No clubbing, No cyanosis, Capillary Refill Less than 3 Seconds, No Calf Tenderness, Diminished Peripheral Pulses, Edema, - - blister noted to plantar left forefoot That had previously been popped. Loose skin was removed no underlying ulceration noted down to superficial dermis. No signs of infection Skin: Ulcer/ Wound - left plantar lateral foot ulcer. No malodor, erythema, purulence, probing to bone, streaking, or other signs of infection. Skin is atrophic and hairless. Granular base with serosanguineous drainage, periwound maceration unchanged from previous visit, - - Right lateral ankle ulceration. No malodor, purulence, probing to bone, streaking, or other signs of infection. Skin is atrophic and hairless. Granular base with serosanguineous drainage, Periwound erythema decreased from previous visit. Periwound skin is elevated Wound Measurements and Assessment WC - Nurse 1 - General Ulcer Measurement Start: 10/14/20 08:22 Freq: Status: Active Protocol: Activity Type Activity Date Activity User E-Sign Co-Sign Detail Recorded Client Recorded Date Recorded By Document 10/21/20 09:14 MW [id number] 10/21/20 09:16 MW 10/21/20 09:14 Wound Center Nurse 1 [Ulcer Assessment] #17 R Lat Ankle -Combined with other wound No -Current Size (cm) - Length 2.5 -Current Size (cm) - Width 2.0 -Current Size (cm) - Depth 0.2 -Total Square Cm 5.00 -Photo Taken No -Epithelialization None Present -Tunneling No -Undermining/Tunneling No -Circular Undermining No -Exudate Amt Medium -Exudate Type Serosanguineous -Wound Margin Flat & Intact -Granulation Amt Small (1-33%) -Granulation Quality Pale -Slough/Fibrin Yes -Necrosis Amt Medium (34-66%) -Necrotic Tissue Type Adherent Slough -Structure Exposed N/A -Texture (Natacha-wound Skin Appearance) Assessed, Scarring -Moisture (Natacha-wound Skin Appearance Assessed, ) Maceration -Color (Natacha-wound Skin Appearance) No Abnormality, Assessed -Tenderness on Palpation (Natacha-wound Yes Skin Appearance) -Ulcer Cleansing SOAP AND WATER -Foul Odor after Cleansing No -Anesthetic Used 4% Lidocaine Solution #16 L Plantar med foot -Combined with other wound No -Current Size (cm) - Length 3.3 -Current Size (cm) - Width 2.2 -Current Size (cm) - Depth 1.0 -Total Square Cm 7.26 -Photo Taken No -Epithelialization None Present -Tunneling No -Undermining/Tunneling No -Circular Undermining No -Exudate Amt Large -Exudate Type Sanguineous -Wound Margin Thickened -Granulation Amt Small (1-33%) -Granulation Quality Pale -Slough/Fibrin No -Necrosis Amt Medium (34-66%) -Necrotic Tissue Type Adherent Slough -Structure Exposed N/A -Texture (Natacha-wound Skin Appearance) Assessed,Callus ,Scarring -Moisture (Natacha-wound Skin Appearance Assessed, ) Maceration -Color (Natacha-wound Skin Appearance) No Abnormality, Assessed -Temperature (Natacha-wound Skin No Abnormality Appearance) (Pt Warm) -Tenderness on Palpation (Natacha-wound Yes Skin Appearance) -Ulcer Cleansing SOAP AND WATER -Foul Odor after Cleansing No -Anesthetic Used 4% Lidocaine Solution WC - Nurse 2 - General Ulcer CM Notes Start: 10/14/20 08:22 Freq: Status: Active Protocol: Activity Type Activity Date Activity User E-Sign Co-Sign Detail Recorded Client Recorded Date Recorded By Document 10/21/20 09:23 LISSY [id number] 10/21/20 09:41 LISSY 10/21/20 09:23 Wound Center Nurse 2 [Procedure/Treatment] #17 R Lat Ankle -Time 09:32 -Correct Patient Yes -Correct Side, Site, Position Yes -Correct Procedure Yes -Procedure Performed Yes -Type of Procedure Debridement -Clinical Debridement Subcutaneous -Tissue Removed Subcutaneous -Post Debridement (cm) - Length 3 -Post Debridement (cm) - Width 1.9 -Post Debridement (cm) - Depth 0.3 -Total Square (Post) (cm) 5.7 -Area of Debridement (cm) - Length 3 -Area of Debridement (cm) - Width 1.9 -Total Square (Area) (cm) 5.7 -Tunneling No -Undermining/Tunneling No -Circular Undermining No -Wound/Ulcer Outcome Not Healed -Ulcer Cleansing Rinsed/ Irrigated with Saline -Foul Odor after Cleansing No -Bioengineered Tissue No -Bleeding Controlled with Pressure -Offloading Yes -Type of Offloading Camwalker -Treatment Response Procedure Tolerated Well -Debridement - Subq, 1st 20sq cm Yes #16 L Plantar med foot -Time 09:32 -Correct Patient Yes -Correct Side, Site, Position Yes -Correct Procedure Yes -Procedure Performed Yes -Type of Procedure Debridement -Clinical Debridement Subcutaneous -Tissue Removed Subcutaneous -Post Debridement (cm) - Length 3.5 -Post Debridement (cm) - Width 4 -Post Debridement (cm) - Depth 1.3 -Total Square (Post) (cm) 14.0 -Area of Debridement (cm) - Length 3.5 -Area of Debridement (cm) - Width 4 -Total Square (Area) (cm) 14.0 -Tunneling No -Undermining/Tunneling No -Circular Undermining No -Wound/Ulcer Outcome Not Healed -Ulcer Cleansing Rinsed/ Irrigated with Saline -Foul Odor after Cleansing No -Bioengineered Tissue No -Bleeding Controlled with Pressure -Offloading Yes -Type of Offloading Surgical Shoe -Treatment Response Procedure Tolerated Well -Debridement - Subq, 20sq cm No [See Physician Procedure note for Specifics] Pain Scale: 0-10 Numeric [Pain] -Is Patient Pain Free? Yes Musculoskeletal: No Tenderness to Palpation of Joints or Extremities, Muscle Wasting, - - Bilateral fifth ray partial amputations, varus foot deformity bilateral Neurological: - - Lack of epicritic sensation consistent with neuropathy Psych/Mental Status: Normal Affect, Appropriate Debridement Note Post-Debridement Measurements/Treatment WC - Nurse 2 - General Ulcer CM Notes Start: 10/14/20 08:22 Freq: Status: Active Protocol: Activity Type Activity Date Activity User E-Sign Co-Sign Detail Recorded Client Recorded Date Recorded By Document 10/14/20 08:56 MW [id number] 10/14/20 09:10 MW Document 10/21/20 09:23 JF [id number] 10/21/20 09:41 JF 10/14/20 10/21/20 08:56 09:23 Wound Center Nurse 2 #17 R Lat Ankle -Time 09:32 -Correct Patient Yes Yes -Correct Side, Site, Position Yes Yes -Correct Procedure Yes Yes -Procedure Performed Yes Yes -Type of Procedure Debridement Debridement -Clinical Debridement Subcutaneous Subcutaneous -Tissue Removed Subcutaneous Subcutaneous -Post Debridement (cm) - Length 2.8 3 -Post Debridement (cm) - Width 1.8 1.9 -Post Debridement (cm) - Depth 0.3 0.3 -Total Square (Post) (cm) 5.04 5.7 -Area of Debridement (cm) - Length 2.8 3 -Area of Debridement (cm) - Width 1.8 1.9 -Total Square (Area) (cm) 5.04 5.7 -Tunneling No No -Undermining/Tunneling No No -Circular Undermining No No -Wound/Ulcer Outcome Not Healed Not Healed -Ulcer Cleansing Rinsed/ Rinsed/ Irrigated with Irrigated with Saline Saline -Foul Odor after Cleansing No No -Bioengineered Tissue No No -Bleeding Controlled with Pressure Pressure -Offloading No Yes -Type of Offloading Camwalker -Treatment Response Procedure Procedure Tolerated Well Tolerated Well -Debridement - Subq, 1st 20sq cm Yes Yes #16 L Plantar med foot -Time 09:32 -Correct Patient Yes Yes -Correct Side, Site, Position Yes Yes -Correct Procedure Yes Yes -Procedure Performed Yes Yes -Type of Procedure Debridement Debridement -Clinical Debridement Subcutaneous Subcutaneous -Tissue Removed Subcutaneous Subcutaneous -Post Debridement (cm) - Length 3.4 3.5 -Post Debridement (cm) - Width 4.5 4 -Post Debridement (cm) - Depth 1.1 1.3 -Total Square (Post) (cm) 15.30 14.0 -Area of Debridement (cm) - Length 3.4 3.5 -Area of Debridement (cm) - Width 4.5 4 -Total Square (Area) (cm) 15.30 14.0 -Tunneling No No -Undermining/Tunneling No No -Circular Undermining No No -Wound/Ulcer Outcome Not Healed Not Healed -Ulcer Cleansing Rinsed/ Rinsed/ Irrigated with Irrigated with Saline Saline -Foul Odor after Cleansing No No -Bioengineered Tissue No No -Bleeding Controlled with Pressure Pressure -Offloading No Yes -Type of Offloading Surgical Shoe -Treatment Response Procedure Tolerated Well -Debridement - Subq, 1st 20sq cm No No Pain Scale: 0-10 Numeric Is Patient Pain Free? Yes Yes WC - Nurse 3 - General Ulcer D/C NN Start: 10/14/20 08:22 Freq: Status: Active Protocol: Activity Type Activity Date Activity User E-Sign Co-Sign Detail Recorded Client Recorded Date Recorded By Document 10/14/20 10:21 DL [id number] 10/14/20 10:23 DL 10/14/20 10:21 Wound Care Nurse 3 #17 R Lat Ankle -Ulcer Cleansing Rinsed/ Irrigated with Saline -Foul Odor after Cleansing No -Primary Dressing Applied Fibracol Plus 4x4 -Primary Dressing Covered/Secured with Dry Gauze & Roll Gauze, Secured with Tape -Fibracol Plus 4x4 1 #16 L Plantar med foot -Ulcer Cleansing Rinsed/ Irrigated with Saline -Foul Odor after Cleansing No -Other Dressing betadine -Primary Dressing Covered/Secured with Dry Gauze & Roll Gauze, Secured with Tape Treatment Response Procedure Tolerated Well Pain Scale: 0-10 Numeric Is Patient Pain Free? Yes WC - Visit Discharge Discharge Condition Stable Ambulatory Status Ambulatory, Crutches Transportation hosp trans Notes: Pt to resume VAC drsg via tomorrow. Facility Type Home Health Orders Sent Yes Wound debrided: Plantar lateral foot Laterality: Left Wound Grade/Stage: Freedman 2 Type of Debridement: Excisional debridement Anesthesia Used: 4% Lidocaine Solution Depth: in the subcutaneous layer Percentage of wound debrided: 100 Instrument Used: 5mm curette Tissue Removed: Tissue removed includes fibrous, devitalized, biofilm, and slough tissue Severity: Fat Layer Exposed Amount of bleeding with debridement: Mild Bleeding Controlled with: Pressure Patient tolerated procedure well - Additional Wound Wound debrided: Lateral ankle Laterality: Right Wound Grade/Stage: Freedman 1 Type of Debridement: Excisional debridement Anesthesia Used: 4% Lidocaine Solution Depth: in the subcutaneous layer Percentage of wound debrided: 100 Instrument Used: 5mm curette Tissue Removed: Tissue removed includes fibrous, devitalized, biofilm, and slough tissue Severity: Fat Layer Exposed Amount of bleeding with debridement: Mild Bleeding Controlled with: Pressure Patient tolerated procedure: Patient tolerated procedure well Assessment/Plan Active Problems (This Medical Record has been edited. Action required.) Ulcer of right ankle (Acute) RLS (restless legs syndrome) (Chronic) Uncontrolled type II diabetes mellitus (Chronic) Obesity (Chronic) Foot ulcer, left (Chronic) Diabetic polyneuropathy (Chronic) Assessment: Diabetic ulcer of right ankle -recurrent and no signs of infection, grade 1. Diabetic ulcer plantar left foot-recurrent no signs of infection, grade 2. Diabetic foot ulcer associated with type 2 diabetes mellitus. Hemoglobin A1c 9.17 Aug 2020. varus deformity bilateral lower extremities. malnutrition suspected. delayed healing Plan: Patient was carefully examined and evaluated in detail today. Subcutaneous excisional debridement of both ulcers done as noted in clinical panel. Her new right lateral ankle ulcer site is noted and she is reassured no signs of infection are seen. Procedure was well-tolerated. I recommend changing the dressing daily with Fibracol to the right ankle and continuing wound VAC to the plantar left foot. The patient is to change her dressing in this manner on a daily basis to the right ankle and every other day left plantar foot. It is noted she is already been undergoing a comprehensive wound healing plan and has delayed and nonhealing. She appears to be stabilized from an infection standpoint and has had prior bone biopsies, wound culture, and intervention with infectious disease. I do not recommend any antibiotics today. Her lab work was reviewed within the past 3 months. She has suspected adequate vascular perfusion for healing per her recent noninvasive vascular studies 09/01/2020 with triphasic waveforms noted. Patient's hemoglobin A1c was 9.8 in August 2020. Offloading strongly recommended. Patient relates that she broke her crutch couple days ago and has not been able to repair it if she cannot find the screw. Reviewed the importance of nonweightbearing with the patient and patient is to find screws to repair her crutch so she is able to a nonweight-bear. She admits she does not offload well at home and I advised her to take some accountability for this part of her healing plan. Also discussed various offloading methods such as pillows and an offloading boot for her right lateral ankle ulceration. Patient states that she has has tried all of these but she has restless leg syndrome and is not able to use any of these options as they all are kicked away. Discussed using these methods while awake and on couch to help offload the area even if she is unable to maintain this offloading while sleeping. Optimal blood sugar control and increased protein intake also discussed. All questions were answered and she was advised to call with any further questions or concerns. All signs and symptoms of local and systemic infection were discussed with the patient today. Wound VAC was reapplied to the left foot as well as cervical dressing to the right along with some compression. New blister formation on her left plantar foot is evidence of her walking on it. Patient finally admitted to some weightbearing to the area. Discussed how this will slow down her healing and may even lead to infection which may require further amputation. To return to the wound healing center 1 week or call sooner she has any questions or concerns.
[2020-10-28 08:15] VITALS: BP 180/94; PULSE 96; RESP 22; TEMP 36.8; BMI 32.4
--- NOTE | 2020-10-28 11:36 | PN.PCM_ITS ---
(1) Ulcer of right ankle Status: Acute Qualifiers: Non-pressure ulcer stage: with fat layer exposed Qualified Code(s): L97.312 - Non-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 Code(s): L97.319 - Non-pressure chronic ulcer of right ankle with unspecified severity (2) Diabetic polyneuropathy Status: Chronic Qualifiers: Diabetes mellitus type: type 2 Qualified Code(s): E11.42 - Type 2 diabetes mellitus with diabetic polyneuropathy Code(s): E11.42 - Type 2 diabetes mellitus with diabetic polyneuropathy (3) Foot ulcer, left Status: Chronic Qualifiers: Non-pressure ulcer stage: with bone involvement without evidence of necrosis Qualified Code(s): L97.526 - Non-pressure chronic ulcer of other part of left foot with bone involvement without evidence of necrosis Code(s): L97.529 - Non-pressure chronic ulcer of other part of left foot with unspecified severity (4) Obesity Status: Chronic Qualifiers: Code(s): E66.9 - Obesity, unspecified (5) RLS (restless legs syndrome) Status: Chronic Code(s): G25.81 - Restless legs syndrome (6) Uncontrolled type II diabetes mellitus Status: Chronic Qualifiers: Glycemic state: with hyperglycemia Qualified Code(s): E11.65 - Type 2 diabetes mellitus with hyperglycemia Code(s): E11.65 - Type 2 diabetes mellitus with hyperglycemia Type of Wound Date of Service: 10/28/20 Chief Complaint: Right ankle diabetic ulcer. left foot ulcer History of Wound: Patient is a 55-year-old female who presents to the clinic for follow-up of hospital stay for a left foot chronic ulceration. Patient had an I&D performed in the hospital by Dr. Guadarrama on 09/08/2020. That time patient was noted to have infection to left foot wound with Staphylococcus and Enterobacter which was treated during her stay at the hospital and TCU. Patient has had this ulceration for quite some time. 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 Patient also was noted to have bilateral varus foot deformity. Patient has a noted history of poor compliance of medical recommendations. Patient presents to the office ambulating in an CAM boot with offloaded insert without the assistance of crutches as she has not been able to replace the screw that fell out of them. Patient was noted to have course of antibiotics while in the hospital. Since being discharged from the hospital patient has missed several of her follow-up appointments including here at the wound care center as well as with her primary care physician. She states issues with transportation. Patient relates not being able to get her medications after discharge including insulin and had her blood sugar get out of control during that period up to 600. Patient states that she did not call anyone or go to the emergency department when she found her blood sugar being 600. She states that since then she has been able to get her insulins and her blood sugar has been running more around the 200s which is normal for her. Patient states that she is still doing her wound VAC and with nursing coming out to assist. Patient states that even with their assistance she is unable to not put weight through her foot. Patient states that she had a knee scooter and previously but no longer has access to it. Encouraged patient to try to get access again to a knee scooter as this will help alleviate pressure to the area. Patient also relates that she is largely nonweightbearing by sitting in a chair or on the cou ch. She does admit to external rotation of the lower extremities which could be a contributing factor to ulcer breakdown of the right lateral ankle. She also admits to having offloading boot that she does not wear at night as she states she kicks it off due to her restless leg syndrome. Patient states that she is living with her son or daughter and going between their houses as she is not able to return home alone at this time. She relates that she has a in [place] and visits him for months at a time when she has the funds. This has contributed to her noncompliance. Patient also relates having ulceration to the right lateral ankle that began in the middle of September 2020 she believes that this started while sleeping with her restless leg syndrome. Patient noted to have missed several appointments since being discharged from the hospital and TCU. Patient relates that the wound has worsened beginning of October 2020. Especially after falling in a hole while walking in the yard where her foot and dressing got wet. Patient expresses concern over losing her foot but seems reluctant to follow treatment recommendations Progress of Wound: left lantar foot ulcer some worsening. right lateral ankle improved Subjective: Patient seen and examined bedside. Patient denies any new pedal complaints. Patient denies nausea, fever, vomiting, chills, chest pain, shortness of breath, streaking, purulence - Physical Exam Vital Signs Temp Pulse Resp BP 98.2 F 96 22 H 180/94 H 10/28/20 08:15 10/28/20 08:15 10/28/20 08:15 10/28/20 08:15 General: Oriented x3 HEENT: Atraumatic Abdomen: Obese Extremities: No clubbing, No cyanosis, Capillary Refill Less than 3 Seconds, No Calf Tenderness, Diminished Peripheral Pulses, Edema, Tenderness - plantar left foot uceration, - - Skin is atrophic and hairless. Skin: Ulcer/ Wound - left plantar lateral foot ulcer. No malodor, erythema, purulence, probing to bone, streaking, or other signs of infection. Granular base with serosanguineous drainage, periwound maceration slightly worsened from previous visit, new fissured area noted to plateral lateral aspect of wound, - - Right lateral ankle ulceration. No malodor, purulence, probing to bone, streaking, or other signs of infection. Fibrotic/Granular base with serosanguineous drainage, Periwound erythema decreased from previous visit. Per iwound skin is elevated Wound Measurements and Assessment WC - Nurse 1 - General Ulcer Measurement Start: 10/14/20 08:22 Freq: Status: Active Protocol: Activity Type Activity Date Activity User E-Sign Co-Sign Detail Recorded Client Recorded Date Recorded By Document 10/28/20 08:15 DL [id number] 10/28/20 08:21 DL 10/28/20 08:15 Wound Center Nurse 1 [Ulcer Assessment] #17 R Lat Ankle -Current Size (cm) - Length 2.8 -Current Size (cm) - Width 2 -Current Size (cm) - Depth 0.1 -Total Square Cm 5.6 -Photo Taken No -Exudate Amt Medium -Exudate Type Serosanguineous -Wound Margin Distinct, Outline Attached -Granulation Amt Small (1-33%) -Granulation Quality [place],Red -Necrosis Amt Large (67-100%) -Necrotic Tissue Type Adherent Slough -Structure Exposed N/A -Texture (Natacha-wound Skin Appearance) Scarring -Moisture (Natacha-wound Skin Appearance No Abnormality ) -Color (Natacha-wound Skin Appearance) Rubor -Temperature (Natacha-wound Skin No Abnormality Appearance) (Pt Warm) -Tenderness on Palpation (Natacha-wound No Skin Appearance) -Ulcer Cleansing Wound Cleanser -Foul Odor after Cleansing No -Anesthetic Used 4% Lidocaine Solution #16 L Plantar med foot -Current Size (cm) - Length 3 -Current Size (cm) - Width 4 -Current Size (cm) - Depth 0.9 -Total Square Cm 12 -Photo Taken No -Exudate Amt Medium -Exudate Type Serosanguineous -Wound Margin Thickened -Granulation Amt Large (67-100%) -Granulation Quality Red -Necrosis Amt Small (1-33%) -Necrotic Tissue Type Adherent Slough -Structure Exposed N/A -Texture (Natacha-wound Skin Appearance) Localized Edema ,Scarring -Moisture (Natacha-wound Skin Appearance Maceration ) -Color (Natacha-wound Skin Appearance) Rubor -Temperature (Natacha-wound Skin No Abnormality Appearance) (Pt Warm) -Tenderness on Palpation (Natacha-wound No Skin Appearance) -Ulcer Cleansing Wound Cleanser -Foul Odor after Cleansing No -Anesthetic Used 4% Lidocaine Solution WC - Nurse 2 - General Ulcer CM Notes Start: 10/14/20 08:22 Freq: Status: Active Protocol: Activity Type Activity Date Activity User E-Sign Co-Sign Detail Recorded Client Recorded Date Recorded By Document 10/28/20 08:27 MW [id number] 10/28/20 08:38 MW 10/28/20 08:27 Wound Center Nurse 2 [Procedure/Treatment] #17 R Lat Ankle -Time 08:28 -Correct Patient Yes -Correct Side, Site, Position Yes -Correct Procedure Yes -Procedure Performed Yes -Type of Procedure Debridement -Clinical Debridement Subcutaneous -Tissue Removed Subcutaneous -Post Debridement (cm) - Length 2.7 -Post Debridement (cm) - Width 1.7 -Post Debridement (cm) - Depth 0.5 -Total Square (Post) (cm) 4.59 -Area of Debridement (cm) - Length 2.7 -Area of Debridement (cm) - Width 1.7 -Total Square (Area) (cm) 4.59 -Tunneling No -Undermining/Tunneling No -Circular Undermining No -Wound/Ulcer Outcome Not Healed -Bioengineered Tissue No -Bleeding Controlled with Pressure -Offloading No -Debridement - Subq, 1st 20sq cm Yes #16 L Plantar med foot -Time 08:29 -Correct Patient Yes -Correct Side, Site, Position Yes -Correct Procedure Yes -Procedure Performed Yes -Type of Procedure Debridement -Clinical Debridement Subcutaneous -Tissue Removed Subcutaneous -Post Debridement (cm) - Length 3.0 -Post Debridement (cm) - Width 4.0 -Post Debridement (cm) - Depth 1.3 -Total Square (Post) (cm) 12.00 -Area of Debridement (cm) - Length 3.0 -Area of Debridement (cm) - Width 4.0 -Total Square (Area) (cm) 12.00 -Tunneling No -Undermining/Tunneling No -Circular Undermining No -Wound/Ulcer Outcome Not Healed -Ulcer Cleansing Rinsed/ Irrigated with Saline -Foul Odor after Cleansing No -Bioengineered Tissue No -Bleeding Controlled with Pressure -Offloading No -Treatment Response Procedure Tolerated Well -Debridement - Subq, 1st 20sq cm No [See Physician Procedure note for Specifics] Pain Scale: 0-10 Numeric [Pain] -Is Patient Pain Free? Yes Musculoskeletal: Tenderness - left plantar foot ulceration Neurological: - - lack of epicritic sensation consistent with neuropathy Psych/Mental Status: Normal Affect, Appropriate Debridement Note Post-Debridement Measurements/Treatment WC - Nurse 2 - General Ulcer CM Notes Start: 10/14/20 08:22 Freq: Status: Active Protocol: Activity Type Activity Date Activity User E-Sign Co-Sign Detail Recorded Client Recorded Date Recorded By Document 10/14/20 08:56 MW [id number] 10/14/20 09:10 MW Document 10/21/20 09:23 [id number] 10/21/20 09:41 JF Document 10/28/20 08:27 MW [id number] 10/28/20 08:38 MW 10/14/20 10/21/20 10/28/20 08:56 09:23 08:27 Wound Center Nurse 2 #17 R Lat Ankle -Time 08:56 09:32 08:28 -Correct Patient Yes Yes Yes -Correct Side, Site, Position Yes Yes Yes -Correct Procedure Yes Yes Yes -Procedure Performed Yes Yes Yes -Type of Procedure Debridement Debridement Debridement -Clinical Debridement Subcutaneous Subcutaneous Subcutaneous -Tissue Removed Subcutaneous Subcutaneous Subcutaneous -Post Debridement (cm) - Length 2.8 3 2.7 -Post Debridement (cm) - Width 1.8 1.9 1.7 -Post Debridement (cm) - Depth 0.3 0.3 0.5 -Total Square (Post) (cm) 5.04 5.7 4.59 -Area of Debridement (cm) - Length 2.8 3 2.7 -Area of Debridement (cm) - Width 1.8 1.9 1.7 -Total Square (Area) (cm) 5.04 5.7 4.59 -Tunneling No No No -Undermining/Tunneling No No No -Circular Undermining No No No -Wound/Ulcer Outcome Not Healed Not Healed Not Healed -Ulcer Cleansing Rinsed/ Rinsed/ Irrigated with Irrigated with Saline Saline -Foul Odor after Cleansing No No -Bioengineered Tissue No No No -Bleeding Controlled with Pressure Pressure Pressure -Offloading No Yes No -Type of Offloading Camwalker -Treatment Response Procedure Procedure Tolerated Well Tolerated Well -Debridement - Subq, 1st 20sq cm Yes Yes Yes -Debridement, SubQ, ea addt'l 20sq cm 1 or part thereof #16 L Plantar med foot -Time 08:56 09:32 08:29 -Correct Patient Yes Yes Yes -Correct Side, Site, Position Yes Yes Yes -Correct Procedure Yes Yes Yes -Procedure Performed Yes Yes Yes -Type of Procedure Debridement Debridement Debridement -Clinical Debridement Subcutaneous Subcutaneous Subcutaneous -Tissue Removed Subcutaneous Subcutaneous Subcutaneous -Post Debridement (cm) - Length 3.4 3.5 3.0 -Post Debridement (cm) - Width 4.5 4 4.0 -Post Debridement (cm) - Depth 1.1 1.3 1.3 -Total Square (Post) (cm) 15.30 14.0 12.00 -Area of Debridement (cm) - Length 3.4 3.5 3.0 -Area of Debridement (cm) - Width 4.5 4 4.0 -Total Square (Area) (cm) 15.30 14.0 12.00 -Tunneling No No No -Undermining/Tunneling No No No -Circular Undermining No No No -Wound/Ulcer Outcome Not Healed Not Healed Not Healed -Ulcer Cleansing Rinsed/ Rinsed/ Rinsed/ Irrigated with Irrigated with Irrigated with Saline Saline Saline -Foul Odor after Cleansing No No No -Bioengineered Tissue No No No -Bleeding Controlled with Pressure Pressure Pressure -Offloading No Yes No -Type of Offloading Surgical Shoe -Treatment Response Procedure Procedure Tolerated Well Tolerated Well -Debridement - Subq, 1st 20sq cm No No No Pain Scale: 0-10 Numeric Is Patient Pain Free? Yes Yes Yes - Nurse 3 - General Ulcer D/C NN Start: 10/14/20 08:22 Freq: Status: Active Protocol: Activity Type Activity Date Activity User E-Sign Co-Sign Detail Recorded Client Recorded Date Recorded By Document 10/14/20 10:21 DL [id number] 10/14/20 10:23 DL 10/14/20 10:21 Wound Care Nurse 3 #17 R Lat Ankle -Ulcer Cleansing Rinsed/ Irrigated with Saline -Foul Odor after Cleansing No -Primary Dressing Applied Fibracol Plus 4x4 -Primary Dressing Covered/Secured with Dry Gauze & Roll Gauze, Secured with Tape -Fibracol Plus 4x4 1 #16 L Plantar med foot -Ulcer Cleansing Rinsed/ Irrigated with Saline -Foul Odor after Cleansing No -Other Dressing betadine -Primary Dressing Covered/Secured with Dry Gauze & Roll Gauze, Secured with Tape Treatment Response Procedure Tolerated Well Pain Scale: 0-10 Numeric Is Patient Pain Free? Yes WC - Visit Discharge Discharge Condition Stable Ambulatory Status Ambulatory, Crutches Transportation hosp trans Notes: Pt to resume VAC drsg via tomorrow. Facility Type Home Health Orders Sent Yes Wound debrided: lateral ankle Laterality: Right Wound Grade/Stage: warren 2 Type of Debridement: Excisional debridement Anesthesia Used: 4% Lidocaine Solution Depth: in the subcutaneous layer Percentage of wound debrided: 100 Instrument Used: 5mm curette Tissue Removed: Tissue removed includes fibrous, devitalized, biofilm, and slough tissue Severity: Fat Layer Exposed Amount of bleeding with debridement: Mild Bleeding Controlled with: Pressure Patient tolerated procedure well - Additional Wound Laterality: Left - Additional Wound Wound debrided: plantar lateral foot Laterality: Left Wound Grade/Stage: warren 2 Type of Debridement: Excisional debridement Anesthesia Used: 4% Lidocaine Solution Depth: in the subcutaneous layer Percentage of wound debrided: 100 Instrument Used: 5mm curette Tissue Removed: Tissue removed includes fibrous, devitalized, biofilm, and slough tissue Severity: Fat Layer Exposed Amount of bleeding with debridement: Mild Bleeding Controlled with: Pressure Patient tolerated procedure: Patient tolerated procedure well Assessment/Plan Active Problems (This Medical Record has been edited. Action required.) Ulcer of right ankle (Acute) RLS (restless legs syndrome) (Chronic) Uncontrolled type II diabetes mellitus (Chronic) Obesity (Chronic) Foot ulcer, left (Chronic) Diabetic polyneuropathy (Chronic) Assessment: Diabetic ulcer of right ankle -recurrent and no signs of infection, grade 1. Diabetic ulcer plantar left foot-recurrent no signs of infection, grade 2. Diabetic foot ulcer associated with type 2 diabetes mellitus. Hemoglobin A1c 9.17 Aug 2020. varus deformity bilateral lower extremities. malnutrition suspected. delayed healing Plan: Patient was carefully examined and evaluated in detail today. Subcutaneous excisional debridement of both ulcers done as noted in clinical panel after verbal consent. Procedure was well-tolerated. I recommend changing the dressing daily with Fibracol to the right ankle and continuing wound VAC to the plantar left foot. The patient is to change her dressing in this manner on a daily basis to the right ankle and every other day left plantar foot. It is noted she is already been undergoing a comprehensive wound healing plan and has delayed and nonhealing. She appears to be stabilized from an infection standpoint and has had prior bone biopsies, wound culture, and intervention with infectious disease. I do not recommend any antibiotics today. Her lab work was reviewed within the past 3 months. She has suspected adequate vascular perfusion for healing per her recent noninvasive vascular studies 09/01/2020 with triphasic waveforms noted. Patient's hemoglobin A1c was 9.8 in August 2020. Offloading strongly recommended. Patient broke her crutch last week and has not been able to repair it if she cannot find the screw. She presents today ambulating in a CAM boot with offloading insert. I revised the insert as it was not lining up with the ulcer appropriately. Reviewed the importance of nonweightbearing with the patient and patient is to find screws to repair her crutch so she is able to a nonweight-bear. She admits she does not offload well at home and I advised her to take some accountability for this part of her healing plan. Also discussed various offloading methods such as pillows and an offloading boot for her right lateral ankle ulceration. Patient states that she has has tried all of these but she has restless leg syndrome and is not able to use any of these options as they all are kicked away. Discussed using these methods while awake and on couch to help offload the area even if she is unable to maintain this offloading while sleeping. Optimal blood sugar control and increased protein intake also discussed. All questions were answered and she was advised to call with any further questions or concerns. All signs and symptoms of local and systemic infection were discussed with the patient today. Wound VAC was reapplied to the left foot as well as fibracol dressing to the right along with some compression. New blister formation on her left plantar foot has resolved. Patient finally admitted to some weightbearing to the area. Discussed how this will slow down her healing and may even lead to infection which may require further amputation such as a BKA. The lateral right ankle ulcer shows some imrovement today, the plantar left foot shows some worsening. To return to the wound healing center 1 week or call sooner she has any questions or concerns.
[2020-11-04 10:43] VITALS: BP 129/70; PULSE 99; RESP 16; TEMP 36.7; BMI 32.4
--- NOTE | 2020-11-04 11:07 | PN.PCM_ITS ---
(1) Ulcer of right ankle Status: Acute Qualifiers: Non-pressure ulcer stage: with fat layer exposed Qualified Code(s): L97.312 - Non-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 Code(s): L97.319 - Non-pressure chronic ulcer of right ankle with unspecified severity (2) Diabetic polyneuropathy Status: Chronic Qualifiers: Diabetes mellitus type: type 2 Qualified Code(s): E11.42 - Type 2 diabetes mellitus with diabetic polyneuropathy Code(s): E11.42 - Type 2 diabetes mellitus with diabetic polyneuropathy (3) Foot ulcer, left Status: Chronic Qualifiers: Non-pressure ulcer stage: with bone involvement without evidence of necrosis Qualified Code(s): L97.526 - Non-pressure chronic ulcer of other part of left foot with bone involvement without evidence of necrosis Code(s): L97.529 - Non-pressure chronic ulcer of other part of left foot with unspecified severity (4) Obesity Status: Chronic Qualifiers: Code(s): E66.9 - Obesity, unspecified (5) RLS (restless legs syndrome) Status: Chronic Code(s): G25.81 - Restless legs syndrome (6) Uncontrolled type II diabetes mellitus Status: Chronic Qualifiers: Glycemic state: with hyperglycemia Qualified Code(s): E11.65 - Type 2 diabetes mellitus with hyperglycemia Code(s): E11.65 - Type 2 diabetes mellitus with hyperglycemia Type of Wound Date of Service: 11/04/20 Chief Complaint: Right ankle diabetic ulcer. left foot ulcer History of Wound: Patient is a 55-year-old female who presents to the clinic for follow-up of hospital stay for a left foot chronic ulceration. Patient had an I&D performed in the hospital by Dr. Guadarrama on 09/08/2020. That time patient was noted to have infection to left foot wound with Staphylococcus and Enterobacter which was treated during her stay at the hospital and TCU. Patient has had this ulceration for quite some time. 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 Patient also was noted to have bilateral varus foot deformity. Patient has a noted history of poor compliance of medical recommendations. Patient presents to the office ambulating in an CAM boot with offloaded insert without the assistance of crutches as she has not been able to replace the screw that fell out of them. She states that she just got the part she needed and she will repair the crutches this week. Patient was noted to have course of antibiotics while in the hospital. Since being discharged from the hospital patient has missed several of her follow-up appointments including here at the wound care center as well as with her primary care physician. She states issues with transportation. Patient to a follow-up appointment with infectious disease early November 2020. patient relates not being able to get her medications after discharge including insulin and had her blood sugar get out of control during that period up to 600. Patient states that she did not call anyone or go to the emergency department when she found her blood sugar being 600. She states that since then she has been able to get her insulins and her blood sugar has been running more around the 200s which is normal for her. Patient states that she is still doing her wound VAC and with nursing coming out to assist. Patient states that she had a knee scooter and previously but no longer has access to it. Encouraged patient to try to get access again to a knee scooter as this will help alleviate pressure to the area. Patient also relates that she is largely nonweightbearing by sitting in a chair or on the couch she also uses a wheelchair at home. She does admit to external rotation of the lower extremities which could be a contributing factor to ulcer breakdown of the right lateral ankle. She also admits to having offloading boot that she does not wear at night as she states she kicks it off due to her restless leg syndrome. Patient states that she is living with her son or daughter and going between their houses as she is not able to return home alone at this time as her heater is broken. It might be fixed later today at which time she will move back home will where she lives alone and has no stairs. She relates that she has a in [place] and visits him for months at a time when she has the funds. This has contributed to her noncompliance. Patient also relates having ulceration to the right lateral ankle that began in the middle of September 2020 she believes that this started while sleeping with her restless leg syndrome. Patient noted to have missed several appointments since being discharged from the hospital and TCU. Patient relates that the wound has worsened beginning of October 2020. Especially after falling in a hole while walking in the yard where her foot and dressing got wet. Patient also relates that her wound VAC telegraph dispatcher was left at her son's house and the wound VAC . She did not remove the dressing and left it before approximately 10 hours before she was able to get the telegraph dispatcher again. Patient also presented to clinic today with wound VAC on and battery . Patient like this happen as she was coming to the wound care center. Patient was made aware that leaving the wound VAC on without the machine on will be detrimental to her healing process. Patient expresses concern over losing her foot but seems reluctant to follow treatment recommendations. She does not seem willing or capable to follow instructions. Progress of Wound: Worsening of left plantar wound with new bone exposure. Stable right ankle wound Subjective: Patient seen and examined bedside. Patient denies any new pedal complaints. Patient denies any nausea, fever, chills, chest pain, shortness of breath, cough, streaking, purulence, vomiting. - Physical Exam Vital Signs Temp Pulse Resp BP 98.1 F 99 16 129/70 H 11/04/20 10:43 11/04/20 10:43 11/04/20 10:43 11/04/20 10:43 General: Alert, Oriented x3 HEENT: Atraumatic Abdomen: Obese Extremities: No clubbing, No cyanosis, Capillary Refill Less than 3 Seconds, No Calf Tenderness, Diminished Peripheral Pulses, Edema Skin: Ulcer/ Wound - Left lantar foot and right lateral ankle. No erythema, purulence, streaking, or other signs of infection. Left ulcer now probes to bone. Left ulcer malodor noted upon removal of stagnant wound vac dressing. Skin is atrophic and hairless. Granular base with serosanguineous drainage Wound Measurements and Assessment - Nurse 1 - General Ulcer Measurement Start: 10/14/20 08:22 Freq: Status: Active Protocol: Activity Type Activity Date Activity User E-Sign Co-Sign Detail Recorded Client Recorded Date Recorded By Document 11/04/20 10:43 LISSY [id number] 11/04/20 10:45 LISSY 11/04/20 10:43 Wound Center Nurse 1 [Ulcer Assessment] #17 R Lat Ankle -Combined with other wound No -Current Size (cm) - Length 2.9 -Current Size (cm) - Width 2.0 -Current Size (cm) - Depth 0.2 -Total Square Cm 5.80 -Photo Taken No -Epithelialization None Present -Undermining/Tunneling No -Circular Undermining No -Exudate Amt Small -Exudate Type Serosanguineous -Wound Margin Flat & Intact -Granulation Amt Large (67-100%) -Granulation Quality Daggett -Slough/Fibrin Yes -Structure Exposed N/A -Texture (Natacha-wound Skin Appearance) Assessed -Moisture (Natacha-wound Skin Appearance Assessed,Dry/ ) Scaly -Color (Natacha-wound Skin Appearance) Assessed -Tenderness on Palpation (Natacha-wound No Skin Appearance) -Ulcer Cleansing Wound Cleanser -Foul Odor after Cleansing No -Anesthetic Used 4% Lidocaine Solution #16 L Plantar med foot -Combined with other wound No -Current Size (cm) - Length 3.2 -Current Size (cm) - Width 3.5 -Current Size (cm) - Depth 1.4 -Total Square Cm 11.20 -Photo Taken No -Epithelialization None Present -Tunneling No -Undermining/Tunneling No -Circular Undermining No -Exudate Amt Large -Exudate Type Serosanguineous -Wound Margin Indistinct, Non -Visible -Granulation Amt Large (67-100%) -Granulation Quality Red -Slough/Fibrin Yes -Necrotic Tissue Type Adherent Slough -Texture (Natacha-wound Skin Appearance) Callus -Moisture (Natacha-wound Skin Appearance Maceration ) -Color (Natacha-wound Skin Appearance) Assessed -Temperature (Natacha-wound Skin No Abnormality Appearance) (Pt Warm) -Tenderness on Palpation (Natacha-wound No Skin Appearance) -Foul Odor after Cleansing No -Anesthetic Used 4% Lidocaine Solution [Edema Assessment] -Lower Limb Edema Present NA WC - Nurse 2 - General Ulcer CM Notes Start: 10/14/20 08:22 Freq: Status: Active Protocol: Activity Type Activity Date Activity User E-Sign Co-Sign Detail Recorded Client Recorded Date Recorded By Document 11/04/20 10:56 LISSY [id number] 11/04/20 11:05 LISSY 11/04/20 10:56 Wound Center Nurse 2 [Procedure/Treatment] #17 R Lat Ankle -Time 10:57 -Correct Patient Yes -Correct Side, Site, Position Yes -Correct Procedure Yes -Procedure Performed Yes -Type of Procedure Debridement -Clinical Debridement Subcutaneous -Tissue Removed Subcutaneous -Post Debridement (cm) - Length 2.9 -Post Debridement (cm) - Width 2.8 -Post Debridement (cm) - Depth 0.2 -Total Square (Post) (cm) 8.12 -Area of Debridement (cm) - Length 2.9 -Area of Debridement (cm) - Width 2.8 -Total Square (Area) (cm) 8.12 -Tunneling No -Undermining/Tunneling No -Circular Undermining No -Wound/Ulcer Outcome Not Healed -Ulcer Cleansing Rinsed/ Irrigated with Saline -Foul Odor after Cleansing No -Bioengineered Tissue No -Bleeding Controlled with Pressure -Offloading No -Treatment Response Procedure Tolerated Well -Debridement - Subq, 1st 20sq cm Yes -Debridement, SubQ, ea addt'l 20sq cm 1 or part thereof #16 L Plantar med foot -Time 10:57 -Correct Patient Yes -Correct Side, Site, Position Yes -Correct Procedure Yes -Procedure Performed Yes -Type of Procedure Debridement -Clinical Debridement Subcutaneous -Tissue Removed Subcutaneous -Post Debridement (cm) - Length 3.5 -Post Debridement (cm) - Width 3.7 -Post Debridement (cm) - Depth 1.6 -Total Square (Post) (cm) 12.95 -Area of Debridement (cm) - Length 3.5 -Area of Debridement (cm) - Width 3.7 -Total Square (Area) (cm) 12.95 -Tunneling No -Undermining/Tunneling No -Circular Undermining No -Wound/Ulcer Outcome Not Healed -Ulcer Cleansing Rinsed/ Irrigated with Saline -Foul Odor after Cleansing No -Bioengineered Tissue No -Bleeding Controlled with Pressure -Offloading Yes -Type of Offloading Camwalker -Treatment Response Procedure Tolerated Well -Debridement - Subq, 1st 20sq cm No [See Physician Procedure note for Specifics] Pain Scale: 0-10 Numeric [Pain] -Is Patient Pain Free? Yes Musculoskeletal: No Tenderness to Palpation of Joints or Extremities - secondary to neuropathy, - - inverted foot type Neurological: - - decreased epicritic sensation consistant with neuropathy Psych/Mental Status: Normal Affect, Appropriate - left plantar foot and right lateral ankle. No malodor, erythema, purulence, streaking, or other signs of infection. Skin is atrophic and hairless. Granular base with serosanguineous. Left wound now probing to bone Debridement Note Post-Debridement Measurements/Treatment WC - Nurse 2 - General Ulcer CM Notes Start: 10/14/20 08:22 Freq: Status: Active Protocol: Activity Type Activity Date Activity User E-Sign Co-Sign Detail Recorded Client Recorded Date Recorded By Document 10/14/20 08:56 MW [id number] 10/14/20 09:10 MW Document 10/21/20 09:23 [id number] 10/21/20 09:41 JF Document 10/28/20 08:27 MW [id number] 10/28/20 08:38 MW Document 11/04/20 10:56 JF [id number] 11/04/20 11:05 JF 10/14/20 10/21/20 10/28/20 08:56 09:23 08:27 Wound Center Nurse 2 #17 R Lat Ankle -Time 08:56 09:32 08:28 -Correct Patient Yes Yes Yes -Correct Side, Site, Position Yes Yes Yes -Correct Procedure Yes Yes Yes -Procedure Performed Yes Yes Yes -Type of Procedure Debridement Debridement Debridement -Clinical Debridement Subcutaneous Subcutaneous Subcutaneous -Tissue Removed Subcutaneous Subcutaneous Subcutaneous -Post Debridement (cm) - Length 2.8 3 2.7 -Post Debridement (cm) - Width 1.8 1.9 1.7 -Post Debridement (cm) - Depth 0.3 0.3 0.5 -Total Square (Post) (cm) 5.04 5.7 4.59 -Area of Debridement (cm) - Length 2.8 3 2.7 -Area of Debridement (cm) - Width 1.8 1.9 1.7 -Total Square (Area) (cm) 5.04 5.7 4.59 -Tunneling No No No -Undermining/Tunneling No No No -Circular Undermining No No No -Wound/Ulcer Outcome Not Healed Not Healed Not Healed -Ulcer Cleansing Rinsed/ Rinsed/ Irrigated with Irrigated with Saline Saline -Foul Odor after Cleansing No No -Bioengineered Tissue No No No -Bleeding Controlled with Pressure Pressure Pressure -Offloading No Yes No -Type of Offloading Camwalker -Treatment Response Procedure Procedure Tolerated Well Tolerated Well -Debridement - Subq, 1st 20sq cm Yes Yes Yes -Debridement, SubQ, ea addt'l 20sq cm 1 or part thereof #16 L Plantar med foot -Time 08:56 09:32 08:29 -Correct Patient Yes Yes Yes -Correct Side, Site, Position Yes Yes Yes -Correct Procedure Yes Yes Yes -Procedure Performed Yes Yes Yes -Type of Procedure Debridement Debridement Debridement -Clinical Debridement Subcutaneous Subcutaneous Subcutaneous -Tissue Removed Subcutaneous Subcutaneous Subcutaneous -Post Debridement (cm) - Length 3.4 3.5 3.0 -Post Debridement (cm) - Width 4.5 4 4.0 -Post Debridement (cm) - Depth 1.1 1.3 1.3 -Total Square (Post) (cm) 15.30 14.0 12.00 -Area of Debridement (cm) - Length 3.4 3.5 3.0 -Area of Debridement (cm) - Width 4.5 4 4.0 -Total Square (Area) (cm) 15.30 14.0 12.00 -Tunneling No No No -Undermining/Tunneling No No No -Circular Undermining No No No -Wound/Ulcer Outcome Not Healed Not Healed Not Healed -Ulcer Cleansing Rinsed/ Rinsed/ Rinsed/ Irrigated with Irrigated with Irrigated with Saline Saline Saline -Foul Odor after Cleansing No No No -Bioengineered Tissue No No No -Bleeding Controlled with Pressure Pressure Pressure -Offloading No Yes No -Type of Offloading Surgical Shoe -Treatment Response Procedure Procedure Tolerated Well Tolerated Well -Debridement - Subq, 1st 20sq cm No No No Pain Scale: 0-10 Numeric Is Patient Pain Free? Yes Yes Yes 11/04/20 10:56 Wound Center Nurse 2 #17 R Lat Ankle -Time 10:57 -Correct Patient Yes -Correct Side, Site, Position Yes -Correct Procedure Yes -Procedure Performed Yes -Type of Procedure Debridement -Clinical Debridement Subcutaneous -Tissue Removed Subcutaneous -Post Debridement (cm) - Length 2.9 -Post Debridement (cm) - Width 2.8 -Post Debridement (cm) - Depth 0.2 -Total Square (Post) (cm) 8.12 -Area of Debridement (cm) - Length 2.9 -Area of Debridement (cm) - Width 2.8 -Total Square (Area) (cm) 8.12 -Tunneling No -Undermining/Tunneling No -Circular Undermining No -Wound/Ulcer Outcome Not Healed -Ulcer Cleansing Rinsed/ Irrigated with Saline -Foul Odor after Cleansing No -Bioengineered Tissue No -Bleeding Controlled with Pressure -Offloading No -Type of Offloading -Treatment Response Procedure Tolerated Well -Debridement - Subq, 1st 20sq cm Yes -Debridement, SubQ, ea addt'l 20sq cm 1 or part thereof #16 L Plantar med foot -Time 10:57 -Correct Patient Yes -Correct Side, Site, Position Yes -Correct Procedure Yes -Procedure Performed Yes -Type of Procedure Debridement -Clinical Debridement Subcutaneous -Tissue Removed Subcutaneous -Post Debridement (cm) - Length 3.5 -Post Debridement (cm) - Width 3.7 -Post Debridement (cm) - Depth 1.6 -Total Square (Post) (cm) 12.95 -Area of Debridement (cm) - Length 3.5 -Area of Debridement (cm) - Width 3.7 -Total Square (Area) (cm) 12.95 -Tunneling No -Undermining/Tunneling No -Circular Undermining No -Wound/Ulcer Outcome Not Healed -Ulcer Cleansing Rinsed/ Irrigated with Saline -Foul Odor after Cleansing No -Bioengineered Tissue No -Bleeding Controlled with Pressure -Offloading Yes -Type of Offloading Camwalker -Treatment Response Procedure Tolerated Well -Debridement - Subq, 1st 20sq cm No Pain Scale: 0-10 Numeric Is Patient Pain Free? Yes WC - Nurse 3 - General Ulcer D/C NN Start: 10/14/20 08:22 Freq: Status: Active Protocol: Activity Type Activity Date Activity User E-Sign Co-Sign Detail Recorded Client Recorded Date Recorded By Document 10/14/20 10:21 DL [id number] 10/14/20 10:23 DL Document 10/21/20 09:30 PL [id number] 10/28/20 16:56 PL Document 10/28/20 08:45 PL [id number] 10/31/20 08:56 PL 10/14/20 10/21/20 10/28/20 10:21 09:30 08:45 Wound Care Nurse 3 #17 R Lat Ankle -Ulcer Cleansing Rinsed/ Irrigated with Saline -Foul Odor after Cleansing No -Negative Pressure Wound Therapy Continue -Setting (mmHg) 150 -Negative Pressure is Continuous -Primary Dressing Applied Fibracol Plus 4x4 -Primary Dressing Covered/Secured with Dry Gauze & Roll Gauze, Secured with Tape -NPWT Application Charge ($) NPWT </= 50 sq cm -Fibracol Plus 4x4 1 #16 L Plantar med foot -Ulcer Cleansing Rinsed/ Irrigated with Saline -Foul Odor after Cleansing No -Negative Pressure Wound Therapy Continue -Setting (mmHg) 150 -Negative Pressure is Continuous -Other Dressing betadine -Primary Dressing Covered/Secured with Dry Gauze & Roll Gauze, Secured with Tape -NPWT Application Charge ($) NPWT </= 50 sq cm Treatment Response Procedure Tolerated Well Pain Scale: 0-10 Numeric Is Patient Pain Free? Yes WC - Visit Discharge Discharge Condition Stable Ambulatory Status Ambulatory, Crutches Transportation hosp trans Notes: Pt to resume VAC drsg via tomorrow. Facility Type Home Health Orders Sent Yes Wound debrided: plantar foot Laterality: Left Wound Grade/Stage: warren 2 Type of Debridement: Excisional debridement Anesthesia Used: 4% Lidocaine Solution Depth: in the subcutaneous layer, to bone Percentage of wound debrided: 100 Instrument Used: 5mm curette Tissue Removed: Tissue removed includes fibrous, devitalized, biofilm, and slough tissue Severity: Fat Layer Exposed Amount of bleeding with debridement: Mild Bleeding Controlled with: Pressure Patient tolerated procedure well - Additional Wound Wound debrided: lateral ankle Laterality: Right Wound Grade/Stage: warren 2 Type of Debridement: Excisional debridement Anesthesia Used: 4% Lidocaine Solution Depth: in the subcutaneous layer Percentage of wound debrided: 100 Instrument Used: 5mm curette Tissue Removed: Tissue removed includes fibrous, devitalized, biofilm, and slough tissue Severity: Fat Layer Exposed Amount of bleeding with debridement: Mild Bleeding Controlled with: Pressure Patient tolerated procedure: Patient tolerated procedure well Assessment/Plan Active Problems (This Medical Record has been edited. Action required.) Ulcer of right ankle (Acute) RLS (restless legs syndrome) (Chronic) Uncontrolled type II diabetes mellitus (Chronic) Obesity (Chronic) Foot ulcer, left (Chronic) Diabetic polyneuropathy (Chronic) Assessment: Diabetic ulcer of right ankle -recurrent and no signs of infection, grade 1. Diabetic ulcer plantar left foot-recurrent no signs of infection, grade 2. Diabetic foot ulcer associated with type 2 diabetes mellitus. Hemoglobin A1c 9.17 Aug 2020. varus deformity bilateral lower extremities. malnutrition suspected. delayed healing Plan: Patient was carefully examined and evaluated in detail today. Subcutaneous excisional debridement of both ulcers done as noted in clinical panel after verbal consent. Procedure was well-tolerated. I recommend changing the dressing daily with Fibracol to the right ankle and continuing wound VAC to the plantar left foot. The patient is to change her dressing in this manner on a daily basis to the right ankle and every other day left plantar foot. Discussed proper wound vac protocols and device maintenance. Patient noted to have let battery to wound vac and leave that way for about 8-10 hours. Discussed leaving the foam on like that is bad and may have contributed to the worsening of the left foot ulcer as it now probes to bone. Discussed that if sh e is unable to properly use the wound vac that it is doing more harm than good. Discussed transitioning to a TTC instead. Patient assured that she can use the wound vac properly. We will try continuing the vac for another week and see if she can maintain the wound vac properly. It is noted she is already been undergoing a comprehensive wound healing plan and has delayed and nonhealing. She appears to be stabilized from an infection standpoint and has had prior bone biopsies, wound culture, and intervention with infectious disease. I do not recommend any antibiotics today. Her lab work was reviewed within the past 3 months. She has suspected adequate vascular perfusion for healing per her recent noninvasive vascular studies 09/01/2020 with triphasic waveforms noted. Patient's hemoglobin A1c was 9.8 in August 2020. Offloading strongly recommended. Patient broke her crutch last week and has not been able to repair it if she cannot find the screw. She presents today ambulating in a CAM boot with offloading insert. The patient is to find screws to repair her crutch so she is able to a nonweight-bear. She admits she does not offload well at home and I advised her to take some accountability for this part of her healing plan. Also discussed various offloading methods such as pillows and an offloading boot for her right lateral ankle ulceration. Patient states that she has has tried all of these but she has restless leg syndrome and is not able to use any of these options as they all are kicked away. Discussed using these methods while awake and on couch to help offload the area even if she is unable to maintain this offloading while sleeping. Optimal blood sugar control and increased protein intake also discussed. All questions were answered and she was advised to call with any further questions or concerns. All signs and symptoms of local and systemic infection were discussed with the patient today. Wound VAC was reapplied to the left foot as well as fibracol dressing to the right along with some compression. Patient finally admitted to some weightbearing to the area. Discussed how this will slow down her healing and may even lead to infection which may require further amputation such as a BKA. The lateral right ankle ulcer shows some imrovement today, the plantar left foot shows some worsening with wound now extending to bone. Upon removal of wound vac malodor was noted, likely from vac being left in place without machine on. Machine was also noted to have a battery upon arrival to wound care center. No active signs of infection. To return to the wound healing center 1 week or call sooner she has any questions or concerns.
== END 2020-11-09 23:59 ==
LOC: WC 09:00
PROVIDERS: PCP Family Medicine; Referring Provider Podiatrist; Visit Provider Podiatrist Foot & Ankle Surgery
DX: E11.621 Type 2 diabetes mellitus with foot ulcer (principal); L97.312 Non-pressure chronic ulcer of right ankle with fat layer exposed; L97.526 Non-pressure chronic ulcer of other part of left foot with bone involvement without evidence of necrosis; E11.42 Type 2 diabetes mellitus with diabetic polyneuropathy; E11.65 Type 2 diabetes mellitus with hyperglycemia; I25.10 Atherosclerotic heart disease of native coronary artery without angina pectoris; I10 Essential (primary) hypertension; E78.5 Hyperlipidemia, unspecified; G25.81 Restless legs syndrome; K21.9 Gastro-esophageal reflux disease without esophagitis; F32.9 Major depressive disorder, single episode, unspecified; F41.9 Anxiety disorder, unspecified; E66.9 Obesity, unspecified; Z79.02 Long term (current) use of antithrombotics/antiplatelets; Z79.82 Long term (current) use of aspirin; Z79.4 Long term (current) use of insulin; Z79.899 Other long term (current) drug therapy; Z91.19 Patient's noncompliance with other medical treatment and regimen
CPT/HCPCS: 11042; 11045; 97605; 97606; 99213; G0463

== ENCOUNTER 2020-11-14 08:19 | Observation (INO) | payer MEDICARE, MEDICAID, SELFPAY ==
[2018-09-21 13:23] VITALS: BMI 29.3
[2020-11-11 11:15] VITALS: BMI 32.4
[2020-11-14] VITALS (19 sets, daily range): BP systolic 94–172; BP diastolic 49–96; PULSE 80–101; RESP 16–24; TEMP 36.1–37.1; O2SAT 94–100; BMI 32.8; BMI 31.1; BMI 31.2
--- NOTE | 2020-11-14 08:22 | ED.DCSUM_ITS ---
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 Patient showed up for wound care for her left lower extremity and was noted to be acting funny. At about 8 AM patient was noted to have eyes fixed to the right and left-sided weakness. Patient's blood sugar was about 130. She reported to previous nursing staff that she might of taken too much medication today which was presumed to be insulin. On arrival to the ED patient's eyes are closed. She is responsive to voice. She states it is June. She is not following commands. Past Medical History - Allergies and Home Meds Allergies/Adverse Reactions: Allergies Penicillins Allergy (Verified 11/14/20 08:30) Shortness of breath vancomycin Allergy (Verified 11/14/20 08:30) Itching metronidazole Adverse Reaction (Verified 11/14/20 08:30) Nausea OXYCONTIN Allergy (Uncoded 11/14/20 08:30) Shortness of breath Primary Care Physician: Raúl Eric MD [Primary Care Provider] - Prior records reviewed: Yes Past Medical History: - - Anemia, hypertension, diabetes type 2, anxiety, depression, NSTEMI, hyperlipidemia, GERD Surgical History: angioplasty - with stent., - - Severel R foot toe amputations and I+Ds, BL carpal tunnel surgery 1994, right shoulder surgery in 1994, section x2, most recently LLE I+D, Left foot ulcer debridement, cardiac stent Smoking Status: Never smoker - Family History Paternal Family History: Reports: - - Patient states her father when she was 5 years old, denies known medical history, denies known cardiac history. Maternal Family History: Reports: Cancer - Patient had a brother who had testicular cancer; and later cancer in his stomach., Diabetes, Hypertension, - - Her mother at the age of 67 to a blood clot to the brain. She had had multiple strokes preceding that. Patient had 3 brothers who had bypass surgery in their 50s. Sibling Family History: Reports: - - She has one brother who is secondary to cancer and she does not know what kind of cancer he had. She also has 3 brothers with a history of cardiovascular disease, stents and coronary artery bypass grafting. Review of Systems General: Denies: Chills, Fever, Sweats Eyes: Denies: Visual changes - bilaterally, Diplopia ENT: Denies: Rhinorrhea, Sore throat Cardiovascular: Denies: Chest pain, Palpitations Respiratory: Denies: Dyspnea, Cough, Dyspnea on exertion Gastrointestinal: Denies: Abdominal pain, Nausea, Vomiting, Diarrhea, Melena, Hematochezia Genitourinary: Denies: Dysuria, Hematuria, Frequency Musculoskeletal: Denies: Back pain, Extremity Pain Skin: Denies: Rash, Wounds Neurological: Reports: Weakness - Generalized. Denies: Headache Psych: Denies: Depression, Anxiety STROKE Inital Vital Signs reviewed: Yes General: Well nourished Head: Normocephalic, Atraumatic Eyes: Perrl, EOMI ENT: Moist mucous membranes, No rhinorrhea Cardiovascular: Regular rate, Regular rhythm Respiratory: No distress, CTA bilaterally Abdomen: Soft, Nontender, Nondistended Extremities: - - Left foot splint and walking boot. Negative for: Nontender, No edema Skin: Normal color, No rash Neurological: Alert, - - NIH = 3 Diagnostic/Tx/Re-eval Clinical Impression(s) from Imaging Studies Brain CT 11/14/20 08:22 IMPRESSION: Normal unenhanced CT scan of the brain. N.B. : The above information has been verbally conveyed by Ronnie Saavedra MD to Rafiq Marquez on 11/14/2020 08:36:45 (ET). Electronically Signed: Ronnie Saavedra MD at 8:38 EST , Service support , ADDENDUM: 11/14/20 0844 IMPRESSION: Normal unenhanced CT scan of the brain. N.B. : The above information has been verbally conveyed by Ronnie Saavedra MD to Rafiq Marquez on 11/14/2020 08:36:45 (ET). Electronically Signed: Ronnie Saavedra MD at 8:38 EST , Service support , Head/Neck CTA 11/14/20 08:23 IMPRESSION: Minimal calcific plaque at the origin of the right and left internal carotid arteries. N.B. : The above information has been verbally conveyed by Ronnie Saavedra MD to Rafiq Marquez DO, on 11/14/2020 08:42:10 (ET). Electronically Signed: Ronnie Saavedra MD at 8:43 EST , Service support , ADDENDUM: 11/14/20 0850 IMPRESSION: Minimal calcific plaque at the origin of the right and left internal carotid arteries. N.B. : The above information has been verbally conveyed by Ronnie Saavedra MD to Rafiq Marquez DO, on 11/14/2020 08:42:10 (ET). Electronically Signed: Ronnie Saavedra MD at 8:43 EST , Service support , Chest X-Ray 11/14/20 09:00 IMPRESSION: Normal x-ray examination of the chest. Electronically Signed: Ronnie Saavedra MD at 9:33 EST , Service support , Laboratory Data 11/14/20 11/14/20 11/14/20 08:55 08:55 08:55 WBC 9.6 RBC 3.50 L Hgb 9.7 L Hct 30.4 L MCV 86.9 MCH 27.7 MCHC 31.9 L RDW Std Deviation 41.3 RDW Coeff of Fior 13.1 Plt Count 321 MPV 11.1 Immature Gran % (Auto) 0.300 Neut % (Auto) 80.7 H Lymph % (Auto) 11.6 L [place] % (Auto) 5.5 Eos % (Auto) 1.4 Baso % (Auto) 0.5 Absolute Neuts (auto) 7.8 H Absolute Lymphs (auto) 1.11 Nucleated RBC % 0 PT 13.4 INR 1.1 APTT 26.7 Sodium 137 Potassium 4.0 Chloride 104 Carbon Dioxide 27.0 Anion Gap 6 BUN 33 H Creatinine 1.86 H Estim Creat Clear Calc 31.99 Est GFR (MDRD) Af Amer 36 L Est GFR (MDRD) Non-Af 30 L BUN/Creatinine Ratio 17.7 Glucose 203 H Calcium 9.0 Troponin I < 0.015 - Rhythm Strip Rhythm Strip: Sinus Rhythm Rate: 84 - EKG Initial EKG Interpretation: Sinus Rhythm, No Acute Injury Pattern - Medical Decision Making Stroke Team Activated: Yes Reviewed Inclusion/Exclusion criteria: Yes Was Patient considered for Endovascular Intervention?: No IV Alteplase (t-PA) Administered: No No contraindications for IV Alteplase (t-PA) administration.: Yes Alteplase (t-PA) risks, benefits, alternative discussed: Yes Not given: Patient refusal: No 55-year-old female presenting with reported left-sided weakness and not looking to the left. Initially it was thought that she was just a little bit off this morning until the wound care clinic determine she might be having a stroke. On arrival to the ED her NIH was 3. She was not looking to the left it would look right. She states her vision was clear. She did have slightly weaker handgrip on the left although she was able to hold up her arms and legs. Patient had CT brain and CTA head and neck which were negative for acute findings. Stroke neurologist did not feel that TPA was appropriate. Her symptoms appear to be improving. He did however recommend admission for MRI. Patient appeared to have improving symptoms and appears to be a little bit more alert currently. Her lab work appears to be at baseline. Chest x-ray as interpreted by myself shows no acute cardiopulmonary process and radiology does agree. EKG is inte rpreted by myself is sinus rhythm at 84 bpm without ischemic changes. Patient was given aspirin in the ED. She is admitted to the floor in stable condition. Impression: 1. TIA ED Disposition - Plan for ED Patient: Referrals: Raúl Eric MD [Primary Care Provider] -
--- NOTE | 2020-11-14 08:22 | EKG12_ITS ---
Test Reason : Blood Pressure : / mmHG Vent. Rate : 084 BPM Atrial Rate : 084 BPM P-R Int : 142 ms QRS Dur : 086 ms QT Int : 392 ms P-R-T Axes : 044 -10 040 degrees QTc Int : 463 ms Normal sinus rhythm Moderate voltage criteria for LVH, may be normal variant Cannot rule out Septal infarct , age undetermined Abnormal ECG Confirmed by ELEN DELVALLE, FELTON ([id number]), technical writer and editor HARINI PHAM ([id number]) on 11/17/2020 2:16:11 PM Referred By: SILVIA Confirmed By:FELTON MYRICK MD
--- NOTE | 2020-11-14 08:22 | CT_ITS ---
STUDY: CT HEAD STROKE PROTOCOL W/O CONTRAST INJECTION REASON FOR EXAM: Female, 55 years old. CVA RADIATION DOSAGE (If Supplied By Facility): CTDIvol = ( 44.99 ) mGy, DLP = ( 779.24 ) mGycm TECHNIQUE: Transaxial CT imaging of the brain was performed without administration of intravenous contrast material. Individualized dose optimization techniques were used for this CT. COMPARISON: Comparison is made with prior study dated 09/15/2019. FINDINGS: Normal soft tissue structures. Normal calvarium. Normal size ventricles and extra-axial spaces for the patient''s age. Normal white matter tracts of the cerebral hemispheres. Normal basal ganglia and thalami. Normal brainstem. Normal cerebellum. There is no intracranial hemorrhage. There are no findings of an acute ischemic infarction. Normal visualized paranasal sinuses. CT/STROKE Brain/Head without Cont IMPRESSION: Normal unenhanced CT scan of the brain. N.B. : The above information has been verbally conveyed by Ronnie Saavedra MD to Rafiq Marquez on 11/14/2020 08:36:45 (ET). Electronically Signed: Ronnie Saavedra MD at 8:38 EST , Service support ,
--- NOTE | 2020-11-14 08:23 | CT_ITS ---
STUDY: CTA HEAD AND NECK WITH CONTRAST REASON FOR EXAM: Female, 55 years old. CVA. UNRESPONSIVE AT WOUND CENTER RADIATION DOSAGE (If Supplied By Facility): CTDIvol = ( 23.00 ) mGy, DLP = ( 714.72 ) mGycm TECHNIQUE: CT angiography was performed with a multi-detector CT scanner. Data acquisition was obtained from the skull base through the vertex following intravenous administration of IV 100mL Isovue-370. MIP images were reconstructed from the axial data set. Post-processing of the angiographic images was performed, with multiplanar reformation and 3D reconstruction. Individualized dose optimization techniques were used for this CT. COMPARISON: No relevant priors. FINDINGS: Normal bilateral petrous carotid arteries. Normal right cavernous carotid artery with a normal supraclinoid bifurcation. Normal left cavernous carotid artery with a normal supraclinoid bifurcation. Normal right A1 segments of the anterior cerebral artery. Normal left A1 segments of the anterior cerebral artery. Normal intact anterior communicating artery (ACOM). Normal bilateral A2 segments of the anterior cerebral arteries. Normal right M1 and M2 segments of the middle cerebral arteries, with a normal M1 bifurcation. Normal left M1 and M2 segments of the middle cerebral arteries, with a normal M1 bifurcation. Normal right posterior communicating artery (PCOM). Normal left posterior communicating artery (PCOM). Normal bilateral vertebral arteries. Normal basilar artery with a normal basilar bifurcation. The visualized bilateral superior cerebellar (SCA) arteries are normal. Normal bilateral P1, P2 and visualized P3 segments of the posterior cerebral arteries. There is no demonstrated aneurysm of the [place]. There is no demonstrated abnormality of the visualized brain. AORTIC ARCH: There is a bovine origin of the great vessels arising from the aortic arch with a common origin of the brachiocephalic and left common carotid artery. Normal origin of the left subclavian artery. RIGHT CAROTID ARTERIES: Normal right common carotid artery (CCA). Normal right common carotid bulb. There is mild atherosclerotic plaque formation of the origin of the right internal carotid artery with less than 50% cross sectional diameter stenosis. Normal visualized cervical portion of the right internal carotid artery. Normal origin of the right external carotid artery (ECA). LEFT CAROTID ARTERIES: Normal left common carotid artery (CCA). Normal left common carotid bulb. There is mild atherosclerotic plaque formation of the origin of the left internal carotid artery with less than 50% cross sectional diameter stenosis. Normal visualized cervical portion of the left internal carotid artery. Normal origin of the left external carotid artery (ECA). VERTEBRAL ARTERIES: There is enhancement within the bilateral vertebral arteries with a small right vertebral artery, and a dominant left vertebral artery. CT/STROKE CTA Head AND Neck W/Con IMPRESSION: Minimal calcific plaque at the origin of the right and left internal carotid arteries. N.B. : The above information has been verbally conveyed by Ronnie Saavedra MD to Rafiq Marquez DO, on 11/14/2020 08:42:10 (ET). Electronically Signed: Ronnie Saavedra MD at 8:43 EST , Service support ,
--- NOTE | 2020-11-14 09:00 | RAD_ITS ---
STUDY: X-RAY CHEST REASON FOR EXAM: Female, 55 years old. Left sided weakness, r gaze deviation TECHNIQUE: Single AP portable view of the chest. COMPARISON: Comparison is made with study dated 08/31/2020. FINDINGS: EKG electrodes are seen. The lungs are clear and expanded. There is no demonstrated pleural abnormality. Normal size heart. Normal mediastinum and elvie. Normal visualized pulmonary arteries. Normal visualized aortic arch and descending thoracic aorta. Normal visualized thoracic spine. Normal visualized ribs, clavicles, and shoulders. There is no demonstrated abnormality of the visualized soft tissue structures of the upper abdomen. RAD/Chest 1 View IMPRESSION: Normal x-ray examination of the chest. Electronically Signed: Ronnie Saavedra MD at 9:33 EST , Service support ,
[2020-11-14 09:04] LABS: Absolute Lymphocyte Count 1.11 X10^3/uL (0.83-4.51); Absolute Neutrophil Count 7.8 X10^3/uL (2.0-7.7); Basophil# 0.05 X10^3/uL; Basophil% 0.5 % (0-1); Eosinophil# 0.13 X10^3/uL; Eosinophils% 1.4 % (0-5); Hematocrit 30.4 % (37-47); Hemoglobin 9.7 g/dL (12.0-15.0); Lymphocyte # 1.11 X10^3/ul (4.0); Lymphocyte % 11.6 % (19-41); Mean Corp Hgb Conc 31.9 g/dL (32-36); Mean Corpuscular Hgb 27.7 pg (27.0-32.0); Mean Corpuscular Volume 86.9 fL (81-99); Mean Platelet Vol. 11.1 fl (6.2-12.0); Monocyte# 0.53 X10^3/uL; Monocyte% 5.5 % (0-10); NRBC Flagged by Analyzer 0 % (0-5); Neutrophil # 7.75 X10^3/uL (2.7-7.7); Neutrophil % 80.7 % (47-70); Platelet Count 321 K/mm3 (150-450); RBC Distribution Width CV 13.1 % (11.6-14.6); RBC Distribution Width SD 41.3 fl (35.1-43.9); White Blood Count 9.6 K/mm3 (4.4-11.0)
[2020-11-14 09:17] LABS: International Normalized Ratio 1.1; Prothrombin Time (Protime)PT. 13.4 SECONDS (11.7-14.9)
[2020-11-14 09:18] LABS: Partial Thromboplast Time 26.7 Seconds (24.1-36.2)
[2020-11-14 09:20] LABS: Anion Gap 6 (5-15); BUN 33 mg/dL (7-18); BUN/Creat Ratio 17.7 RATIO (10-20); Chloride 104 mmol/L (98-107); Creatinine, Serum 1.86 mg/dL (0.55-1.02); EST Glomerular Filtration Rate 30 mL/min (>60); Est Glom Filt Rate - Afr Amer 36 mL/min (>60); Estimated Creatinine Clearance 31.99 ml/min; Glucose 203 mg/dL (74-106); Sodium Level 137 mmol/L (136-145)
[2020-11-14] MEDS: Aspirin 81 MG TAB.CHEW 324 MG PO (09:31)
--- NOTE | 2020-11-14 11:43 | HP.PCM_ITS ---
Problem List (1) Ulcer of right ankle Status: Chronic Qualifiers: (2) Ulcer of left foot with muscle involvement without evidence of necrosis Status: Chronic (3) Diabetic infection of left foot Status: Chronic (4) Anemia Status: Chronic Qualifiers: Anemia type: unspecified type Qualified Code(s): D64.9 - Anemia, unspecified (5) Anxiety and depression Status: Chronic (6) RLS (restless legs syndrome) Status: Chronic (7) Uncontrolled type II diabetes mellitus Status: Chronic Qualifiers: (8) Obesity Status: Chronic Qualifiers: (9) Chest pain Status: Inactive Qualifiers: (10) Debility Status: Chronic (11) Costochondritis Status: Inactive (12) Foot ulcer, left Status: Chronic Qualifiers: Non-pressure ulcer stage: with bone involvement without evidence of necrosis Qualified Code(s): L97.526 - Non-pressure chronic ulcer of other part of left foot with bone involvement without evidence of necrosis (13) Cellulitis of left foot Status: Chronic (14) Coronary artery disease Status: Chronic (15) Hypertension Status: Chronic (16) Diabetic polyneuropathy Status: Chronic Qualifiers: Diabetes mellitus type: type 2 Qualified Code(s): E11.42 - Type 2 diabetes mellitus with diabetic polyneuropathy (17) GERD (gastroesophageal reflux disease) Status: Chronic (18) Depression Status: Chronic (19) Anxiety Status: Chronic (20) Diabetes mellitus Status: Chronic (21) Atherosclerosis of [place] coronary artery of [place] heart without angina pectoris Status: Chronic (22) NSTEMI (non-ST elevated myocardial infarction) Status: Resolved (23) History of coronary artery stent placement Status: Resolved Comment: PCI-DARA mid LAD w/ 2.25 x 16 mm Promus Synergy, DARA prox LAD w/ 2.5 x 12 mm Promus Synergy 09/21/2018 (24) Essential (primary) hypertension Status: Chronic (25) HLD (hyperlipidemia) Status: Chronic Qualifiers: History of Present Illness Date of Admission: 11/14/20 Chief Complaint: confusion The patient is a 55 year old F was at wound care and noted to be confused and seemed to be weak on the left as well. Concerned and patient was brought to the emergency room where she underwent a work-up and seen by [facility] recommended further evaluation with an MRI. Patient on my exam is groggy and just feeling tired. Denies any left-sided weakness. [] Past Medical History Past Medical History (Chronic Problems): Chronic Problems (This Medical Record has been edited. Action required.) Ulcer of right ankle (Chronic) Ulcer of left foot with muscle involvement without evidence of necrosis (Chronic) Diabetic infection of left foot (Chronic) Anemia (Chronic) Anxiety and depression (Chronic) RLS (restless legs syndrome) (Chronic) Uncontrolled type II diabetes mellitus (Chronic) Obesity (Chronic) Debility (Chronic) Foot ulcer, left (Chronic) Cellulitis of left foot (Chronic) Coronary artery disease (Chronic) Hypertension (Chronic) Diabetic polyneuropathy (Chronic) GERD (gastroesophageal reflux disease) (Chronic) Depression (Chronic) Anxiety (Chronic) Diabetes mellitus (Chronic) Atherosclerosis of [place] coronary artery of [place] heart without angina pectoris (Chronic) Essential (primary) hypertension (Chronic) HLD (hyperlipidemia) (Chronic) Medical History: Medical History (This Medical Record has been edited. Action required.) Atherosclerosis of [place] coronary artery of [place] heart without angina pectoris (Chronic) I25.10 NSTEMI (non-ST elevated myocardial infarction) (Resolved) Onset Date: 09/20/18 I21.4 Essential (primary) hypertension (Chronic) I10 HLD (hyperlipidemia) (Chronic) E78.5 Abscess of right lower leg L02.415 diabetic ulcer abscess right lateral malleolus Acquired varus deformity of left foot M21.172 Acquired varus deformity of right foot M21.171 Anxiety F41.9 Back pain, chronic M54.9, G89.29 Cellulitis of foot, left L03.116 cellulitis and abscess of the left foot with possible osteomyelitis Chronic renal failure N18.9 Chronic ulcer of left foot with fat layer exposed L97.522 Chronic ulcer of left foot with fat layer exposed L97.522 Chronic ulcer of left foot with necrosis of muscle L97.523 Delayed wound healing T14.8XXD Delayed wound healing T14.8XXD Delayed wound healing T14.8XXD Depression F32.9 Diabetic foot ulcer associated with type 2 diabetes mellitus E11.621, L97.509 Diabetic polyneuropathy E11.42 Stage II?3 Diabetic ulcer of right ankle E11.622, L97.319 diabetic ulcer abscess right lateral malleolus GERD (gastroesophageal reflux disease) K21.9 Hypomagnesemia E83.42 Malnutrition E46 Non-compliance Z91.19 Normocytic anemia D64.9 Obesity (BMI 30.0-34.9) E66.9 Osteomyelitis of left foot M86.9 RLS (restless legs syndrome) Type 2 diabetes mellitus with diabetic polyneuropathy E11.42 Type 2 diabetes mellitus with diabetic polyneuropathy E11.42 Type II diabetes mellitus, uncontrolled E11.65 Ulcer of right foot with fat layer exposed L97.512 distal hallux Ulcer of right lower extremity with fat layer exposed L97.912 Chest pain (Resolved) R07.9 Ischemic cardiomyopathy I25.5 EF 45% Necrotizing soft tissue infection (Resolved) M79.89 Severe sepsis (Resolved) A41.9, R65.20 Hemoglobin A1c greater than 9.0% (Inactive) R73.09 12.2 Allergies Penicillins Allergy (Verified 11/14/20 08:30) Shortness of breath vancomycin Allergy (Verified 11/14/20 08:30) Itching metronidazole Adverse Reaction (Verified 11/14/20 08:30) Nausea OXYCONTIN Allergy (Uncoded 11/14/20 08:30) Shortness of breath Home Medications: Ambulatory Orders Medication Instructions Recorded Gabapentin [Neurontin] 900 mg PO TIDCM 09/20/18 atorvastatin 80 mg tablet 80 mg PO QHS #90 tab 11/30/19 clopidogrel 75 mg tablet 75 mg PO DAILY #90 tab 11/30/19 Insulin Lispro [Humalog KwikPen] 20 unit SC TIDCM 08/31/20 Insulin Glargine [Lantus SoloStar 35 units SC DAILY 09/12/20 Pen] Iron Polysaccharide Complex 150 mg PO DAILYCM 09/12/20 [Ferrex 150] Isosorbide Mononitrate [Isosorbide 30 mg PO DAILY 09/12/20 Mononitrate ER] Paroxetine [Paxil] 20 mg PO QHS 09/12/20 Pramipexole Di-HCl [Mirapex] 1.5 mg PO BID 09/12/20 Acetaminophen [Tylenol] 1,000 mg PO Q6H PRN PRN tab 09/19/20 Oxycodone [Oxyir] 5 mg PO Q4H PRN PRN 3 Days #18 tab 09/19/20 Peg 400/Hypromellose/Glycerin 2 drp EACH EYE Q1H PRN bottle 09/19/20 [Artificial Tears] Polyethylene Glycol 3350 [Miralax] 17 gm PO DAILY 11/14/20 Surgical History: Surgical History (This Medical Record has been edited. 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 Maternal History Items: Cancer - Patient had a brother who had testicular cancer; and later cancer in his stomach., Diabetes, Hypertension, - - Her mother at the age of 67 to a blood clot to the brain. She had had multiple strokes preceding that. Patient had 3 brothers who had bypass surgery in their 50s. Sibling History Items: - - She has one brother who is secondary to cancer and she does not know what kind of cancer he had. She also has 3 brothers with a history of cardiovascular disease, stents and coronary artery bypass grafting. Review of Systems Constitutional: Denies: Anorexia, Chills, Fever, Night Sweats, Malaise, Weakness Eyes: Denies: Blurred vision, Double vision HEENT: Denies: Head Aches, Sinus Congestion, Sinus Drainage Cardiovascular: Denies: Chest Pain, Palpitations Respiratory: Denies: Cough, Shortness of breath at rest, Sputum production Gastrointestinal: Denies: Abdominal Pain, Nausea, Vomiting Genitourinary: Denies: Dysuria Musculoskeletal: Denies: Joint Pain, Joint Tenderness Skin: Denies: Dryness, Jaundice Psychiatric: Denies: Anxiety, Depression Hematologic/ Lymphatic: Denies: Easy Bruising, Easy Bleeding, Hx of blood clot Comment: All review of systems were negative except as mentioned above in the history of present illness and the other review of systems. VTE Information - Inpt Only VTE Present on Admission: No VTE Mechan Device Prophylaxis: None VTE Pharm Prophylaxis ordered?: Yes - Physical Exam Vitals/I&O's: Vital Signs Temp Pulse Resp BP Pulse Ox 36.2 C L 80 18 135/63 H 99 11/14/20 11:05 11/14/20 11:05 11/14/20 11:05 11/14/20 11:05 11/14/20 11:05 Oxygen Delivery Method Room Air Weight: 87.634 kg Body Mass Index (BMI) 31.1 Finger Stick Blood Glucose 133 General: Alert, Cooperative, No apparent distress, - - Groggy. Afebrile. HEENT: Atraumatic, PERRLA, Normocephalic, - - Does not track my Oral: Moist Mucosa - hand or finger with her eyes., No Gingival or Mucosal Lesions/ Ulcerations Neck: No Nodes, Thyroid Normal Size and Texture Lungs: Clear to auscultation, Normal air movement, No rhonchi, No wheeze, No rales Cardiovascular: Regular rate, Regular Rhythm, Normal S1, Normal S2, No murmurs Abdomen: Bowel Sounds Present, Soft, Non Tender, Non-Distended, No Hepato- splenomegaly Extremities: No edema, No Calf Tenderness Skin: No rashes, No breakdown Musculoskeletal: No Tenderness to Palpation of Joints or Extremities, No Muscle Wasting, - - Left foot and ankle in a cast, did not remove Neurological: Cranial nerves II-XII grossly intact, Motor Exam 5/5 strength throughout Psych/Mental Status: Flat Affect Laboratory Results 11/14/20 08:55: WBC 9.6, RBC 3.50 L, Hgb 9.7 L, Hct 30.4 L, MCV 86.9, MCH 27.7, MCHC 31.9 L, RDW Std Deviation 41.3, RDW Coeff of Fior 13.1, Plt Count 321, MPV 11.1, Immature Gran % (Auto) 0.300, Neut % (Auto) 80.7 H, Lymph % (Auto) 11.6 L, Mckinley % (Auto) 5.5, Eos % (Auto) 1.4, Baso % (Auto) 0.5, Absolute Neuts (auto) 7.8 H, Absolute Lymphs (auto) 1.11, Nucleated RBC % 0 11/14/20 08:55: PT 13.4, INR 1.1, APTT 26.7 11/14/20 08:55: Sodium 137, Potassium 4.0, Chloride 104, Carbon Dioxide 27.0, Anion Gap 6, BUN 33 H, Creatinine 1.86 H, Estim Creat Clear Calc 31.99, Est GFR (MDRD) Af Amer 36 L, Est GFR (MDRD) Non-Af 30 L, BUN/Creatinine Ratio 17.7, Glucose 203 H, Calcium 9.0, Troponin I < 0.015 Clinical Impression(s) from Imaging Studies Brain CT 11/14/20 08:22 IMPRESSION: Normal unenhanced CT scan of the brain. N.B. : The above information has been verbally conveyed by Ronnie Saavedra MD to Rafiq Marquez on 11/14/2020 08:36:45 (ET). Electronically Signed: Ronnie Saavedra MD at 8:38 EST , Service support , ADDENDUM: 11/14/20 0844 IMPRESSION: Normal unenhanced CT scan of the brain. N.B. : The above information has been verbally conveyed by Ronnie Saavedra MD to Rafiq Marquez on 11/14/2020 08:36:45 (ET). Electronically Signed: Ronnie Saavedra MD at 8:38 EST , Service support , Head/Neck CTA 11/14/20 08:23 IMPRESSION: Minimal calcific plaque at the origin of the right and left internal carotid arteries. N.B. : The above information has been verbally conveyed by Ronnie Saavedra MD to Rafiq Marquez DO on 11/14/2020 08:42:10 (ET). Electronically Signed: Ronnie Saavedra MD at 8:43 EST , Service support , ADDENDUM: 11/14/20 0850 IMPRESSION: Minimal calcific plaque at the origin of the right and left internal carotid arteries. N.B. : The above information has been verbally conveyed by Ronnie Saavedra MD to Rafiq Marquez DO, on 11/14/2020 08:42:10 (ET). Electronically Signed: Ronnie Saavedra MD at 8:43 EST , Service support , Chest X-Ray 11/14/20 09:00 IMPRESSION: Normal x-ray examination of the chest. Electronically Signed: Ronnie Saavedra MD at 9:33 EST , Service support , Current Medications Sodium Chloride (0.9% Saline Lock 10 Ml Syringe) 10 - 40 ml IV UD PRN PRN Reason: SALINE FLUSH Assessment/Plan All Active Problems (This Medical Record has been edited. Action required.) NSTEMI (non-ST elevated myocardial infarction) (Resolved 09/20/18) History of coronary artery stent placement (Resolved 09/21/18) Abscess of left foot (Resolved) Cellulitis of left foot (Resolved) Chest pain (Resolved) Diabetic foot infection (Resolved) Diarrhea (Resolved) Enteritis, Yersinia enterocolitica (Resolved) Hyperglycemia (Resolved) Intractable nausea and vomiting (Resolved) Malnutrition (Resolved) Necrotizing soft tissue infection (Resolved) Severe sepsis (Resolved) 1. Encephalopathy: * There was some reported left-sided weakness though I do not appreciate at this time. Patient does not track my finger or hand with her eyes and even try to get her to move her eyes she does not. This seems more encephalopathic rather than strokelike process. Will perform an MRI to further evaluate the patient does have underlying CVA. Given concern for this being encephalopathic, I am concerned that this could be toxic. Did review the patient's OARRS, and she does receive gabapentin as well as oxycodone. Those medications will be held. 2. Diabetic ulcer of left foot: Sees wound care. Underwent some excisional debridement on the second. Wound care recommends changing dressing daily with Fibracol to the right ankle and left foot. Apply total contact cast to the left foot to better offload. Patient to follow-up with wound care as outpatient. 3. Diabetes mellitus type 2: Insulin-dependent. Continue with insulin glargine as well as prandial insulin. 4. Anemia: Stable. Monitor. 5. VTE prophylaxis with low molecular weight heparin. OBSV E&M: 65575 Initial observation care L3
--- NOTE | 2020-11-14 12:00 | MRI_ITS ---
ACR Level 3 findings have been noted. An addendum which confirms receipt of the report will follow. STUDY: MRI BRAIN WITHOUT CONTRAST REASON FOR EXAM: Female, 55 years old. AMS, episode of unresponsiveness TECHNIQUE: Standardized multiplanar fat and water weighted pulse sequences were obtained. COMPARISON: CT FINDINGS: Normal size of the ventricles and extra-axial spaces for the patient''s age. There are foci of T2 signal hyperintensity and mild restricted diffusion of the right and left basal ganglia, series 4 image 17. Normal T2* images of the brain without demonstrated susceptibility artifact. There is no demonstrated hemosiderin stain. Normal thalami. There is no extra-axial fluid accumulation. Normal flow voids within the major intracranial circulation suggesting patency by spin echo criteria. Normal sella turcica, pituitary gland, infundibular stalk, optic chiasm and hypothalamus. Normal tectal plate and pineal gland. Normal midbrain, claudia and medulla. Normal cerebellum. Normal basal cisterns. Normal bilateral temporal bones. Normal bilateral internal auditory canals. No demonstrated orbital abnormality, within the constraints of a routine brain study. Normal visualized paranasal sinuses. Normal calvarium and skull base. Normal visualized soft tissue structures. Normal visualized upper cervical spine. MRI/Brain without Contrast IMPRESSION: Recent, acute or subacute, basal ganglia infarcts. No hemorrhage. Electronically Signed: Shayne Rojas MD at 15:55 EST , Service support ,
[2020-11-14 12:51] LABS: Bedside Glucose 339 mg/dL (70-110)
[2020-11-14] MEDS: Insulin Lispro 100 UNIT/ML INSULN.PEN 20 UNIT SC ×2 (12:56→17:16)
--- NOTE | 2020-11-14 13:35 | CASEMGMT ---
LUCRETIA completed a PHQ 9 with patient as she is being worked up for a TIA. She scored a 12 which indicates moderate depression. LUCRETIA spoke with her a little more asking about her current situation. She is staying with her daughter because her furnace is being fixed. She said her who lives in [place] is cheating on her so this has her depressed. She said her daughter is sort of supportive, but she works all day. LUCRETIA asked her if she is on any medication for her depression. She said she is, but hasn't been able to see her doctor as she has transportation issues since her daughter works all day. LUCRETIA asked if she has tried counseling. She again brought up transportation. LUCRETIA told her that right now most counseling agencies are not doing in person visits it is via face time or zoom. She was agreeable to LUCRETIA giving her a list of counselors in the area that are in network with her insurance. LUCRETIA asked her if she currently has any suicidal or homicidal thoughts. She denied that she currently has these thoughts. LUCRETIA provided her with a list of in network counselors. LUCRETIA told her she is always welcome to ask for LUCRETIA or the director inbound sales while she is in the hospital. Kamilla MCCORD MSW
--- NOTE | 2020-11-14 13:53 | ED.RN ---
THIS NURSE PREFORMED A BEDSIDE [facility] WITH GENERAL MAINTENANCE HELPER @ [phone]
[2020-11-14] MEDS: Glucerna Shake 120 ML LIQUID PO ×2 (15:51→21:46)
--- NOTE | 2020-11-14 16:10 | TELEMED_ITS ---
[facility] has confirmed receipt of a request for visit. This document confirms receipt of the order initiating the consult. To find the results of the consultation, please view the patient's reports for the scanned Telemed Consult.
[2020-11-14 16:46] LABS: Bedside Glucose 352 mg/dL (70-110)
[2020-11-14] MEDS: Insulin Lispro 100 UNIT/ML INSULN.PEN SC (17:16)
--- NOTE | 2020-11-14 17:20 | PN_ITS ---
Subjective: This 55-year-old uncontrolled diabetic female was admitted for altered mental status. She relates her blood pressure was very low when she was admitted. She was seen bedside this evening for left foot ulcer and right lateral ankle ulcer. I was informed of her hospital admission with concern of deeper wound by both Dr. Cuevas and wound nurse Tiffany. A culture was obtained previously by wound nurse Tiffany. She had a total contact cast that was removed prior to my evaluation for the left foot. She was seen for continuity of care. - Physical Exam Vitals/I&O's: Vital Signs Temp Pulse Resp BP Pulse Ox 98.2 F 86 18 172/88 H 100 11/14/20 15:45 11/14/20 15:45 11/14/20 15:45 11/14/20 15:45 11/14/20 15:45 Oxygen Delivery Method Room Air Weight: 87.634 kg Body Mass Index (BMI) 31.1 Finger Stick Blood Glucose 133 Intake and Output for Last 24 Hours 11/12/20 11/13/20 11/14/20 23:59 23:59 23:59 Intake Total 360 / 360 Balance 360 / 360 General: Alert, Oriented x3, Cooperative, Lethargic Extremities: No cyanosis, Capillary Refill Less than 3 Seconds, No Calf Tenderness - Negative Jaswinder and Nuñez sign bilateral, Diminished Peripheral Pulses, Edema - Mild bilateral lower extremities, - - Prominent plantar lateral foot with varus attitude that is reducible bilateral Skin: Ulcer/ Wound - Plantar lateral ulcer of left foot is deep with probing to deep structures in 100% granular base. There is no surrounding erythema purulence or odor or necrosis. The right lateral ankle ulcer is superficial with a granular base with no deep tissue exposure, erythema, purulence or infection either., - - Adjacent skin is atrophic Musculoskeletal: Muscle Wasting, - - Compartments are soft in bilateral lower extremities Neurological: - - Lack of normal epicritic sensation is consistent with her neuropathic status Psych/Mental Status: Normal Affect, Appropriate Laboratory Results 11/14/20 08:55: WBC 9.6, RBC 3.50 L, Hgb 9.7 L, Hct 30.4 L, MCV 86.9, MCH 27.7, MCHC 31.9 L, RDW Std Deviation 41.3, RDW Coeff of Fior 13.1, Plt Count 321, MPV 11.1, Immature Gran % (Auto) 0.300, Neut % (Auto) 80.7 H, Lymph % (Auto) 11.6 L, [place] % (Auto) 5.5, Eos % (Auto) 1.4, Baso % (Auto) 0.5, Absolute Neuts (auto) 7.8 H, Absolute Lymphs (auto) 1.11, Nucleated RBC % 0 11/14/20 08:55: PT 13.4, INR 1.1, APTT 26.7 11/14/20 08:55: Sodium 137, Potassium 4.0, Chloride 104, Carbon Dioxide 27.0, Anion Gap 6, BUN 33 H, Creatinine 1.86 H, Estim Creat Clear Calc 31.99, Est GFR (MDRD) Af Amer 36 L, Est GFR (MDRD) Non-Af 30 L, BUN/Creatinine Ratio 17.7, Glucose 203 H, Calcium 9.0, Troponin I < 0.015 11/14/20 12:43: POC Glucose 339 H 11/14/20 15:40: S.aureus Protein A PCR Pending, MRSA (PCR) Pending 11/14/20 16:26: POC Glucose 352 H Current Medications Acetaminophen (Acetaminophen 500 Mg Tablet) 1,000 mg PO Q6H PRN PRN PRN Reason: Pain Score 1-10 Atorvastatin Calcium (Atorvastatin Calcium 80 Mg Tablet) 80 mg PO QHS [facility] Clopidogrel Bisulfate (Clopidogrel Bisulfate 75 Mg Tablet) 75 mg PO DAILY [facility] Dextrose (Dextrose 50%-Water 25 Gm/50 Ml Disp.Syrin) 0 gm IV X1 PRN; Protocol PRN Reason: Hypoglycemia Enoxaparin Sodium (Enoxaparin 40 Mg/0.4 Ml Syringe) 40 mg SC DAILY [facility] Glucagon (Glucagon 1 Mg/Ml Syringe) 1 mg IM .X1 PRN PRN Reason: Hypoglycemia Hydralazine HCl (Hydralazine 20 Mg/Ml Vial) 5 mg IV Q30M PRN PRN Reason: to maintain BP goals Insulin Glargine (Insulin Glargine 100 Units/Ml Pen) 35 units SC DAILY [facility] Insulin Human Lispro (Insulin Lispro 100 Unit/Ml Insuln.Pen) 20 unit SC TIDCM [facility] Last Admin: 11/14/20 17:16 Dose: 20 u Documented by: Insulin Human Lispro (Insulin Lispro 100 Unit/Ml Insuln.Pen) 0 unit SC TIDAC [facility]; Protocol Last Admin: 11/14/20 17:16 Dose: 3 u Documented by: Isosorbide Mononitrate (Isosorbide Mononitrate 30 Mg Tablet) 30 mg PO DAILY [facility] Labetalol HCl (Labetalol (Prefilled) 20 Mg/4 Ml) 10 - 20 mg IV Q10M PRN PRN PRN Reason: to Maintain BP Goals Nutritional Formula (Lactose Free) (Glucerna Shake 120 Ml Liquid) 120 ml PO 4X/DAY TAB Last Admin: 11/14/20 17:18 Dose: Not Given Documented by: Polyethylene Glycol (Polyethylene Glycol 3350 17 Gm Packet) 17 gm PO DAILY [facility] Polysaccharide Iron Complex (Iron Polysaccharide Complex 150 Mg Capsule) 150 mg PO DAILY [facility] Pramipexole Dihydrochloride (Pramipexole Di-Hcl 1 Mg Tablet) 1.5 mg PO BID [facility] Medical Necessity - Tobacco Use Smoking Status: Never smoker Tobacco Use: Non-smoker Assessment/Plan All Active Problems (This Medical Record has been edited. Action required.) NSTEMI (non-ST elevated myocardial infarction) (Resolved 09/20/18) History of coronary artery stent placement (Resolved 09/21/18) Abscess of left foot (Resolved) Cellulitis of left foot (Resolved) Chest pain (Resolved) Diabetic foot infection (Resolved) Diarrhea (Resolved) Enteritis, Yersinia enterocolitica (Resolved) Hyperglycemia (Resolved) Intractable nausea and vomiting (Resolved) Malnutrition (Resolved) Necrotizing soft tissue infection (Resolved) Severe sepsis (Resolved) Plantar lateral left foot ulcer, Freedman grade 2 Lateral ankle ulcer, Freedman grade 1 Diabetes with neuropathy Other comorbidities Encephalopathy work-up in process I reviewed and discussed her case. She is afebrile and her vital signs remained stable. She does not have leukocytosis. Her foot and ankle ulcers were evaluated and there is no purulence or necrosis. Her continued advanced depth is noted to the left foot. A culture was already obtained and the results are pending. Her ulcer was debrided on Tuesday and therefore was not performed today. Her dressing of Aquacel Ag was applied again to the right lower extremity and saline wet-to-dry to the left foot. To maintain a strict offloading technique by remaining nonweightbearing to the left and by avoiding laying directly on her right ankle ulcer. To follow-up next week at the wound care center with Dr. Cuevas. I do not recommend further advanced imaging or surgical intervention at this time. She appears stable from an ulcer and lower extremity standpoint. I answered all her questions. This was a continuity of care progress follow-up. Please do not hesitate to call if you have any questions. Lavern Edgar DPM, F[facility] [phone]
[2020-11-14 20:35] LABS: M R Staph aureus DNA By PCR Negative (Negative); Probe Check PASS; Specimen Processing Control PASS; Staph aureus DNA By PCR NEGATIVE (Negative)
--- NOTE | 2020-11-14 20:49 | PCS.PANDOC ---
PANDEMIC DOCUMENTATION INITIATED: Date: 11/14/2020 Time: 190
[2020-11-14] MEDS: Pramipexole Di-HCl 1 MG Tablet 1.5 MG PO (21:42)
[2020-11-14] MEDS: Atorvastatin Calcium 80 MG Tablet PO (21:42)
[2020-11-15] MEDS: Acetaminophen 500 MG Tablet 1000 MG PO (00:23)
[2020-11-15 01:35] VITALS: BP 155/95; PULSE 95; RESP 18; TEMP 36.8; O2SAT 95
[2020-11-15 03:00] VITALS: PULSE 79
[2020-11-15 05:30] VITALS: BP 145/85; PULSE 76; RESP 18; TEMP 37.1; O2SAT 94
[2020-11-15 06:49] VITALS: PULSE 74
[2020-11-15 07:56] LABS: Absolute Lymphocyte Count 1.84 X10^3/uL (0.83-4.51); Absolute Neutrophil Count 4.9 X10^3/uL (2.0-7.7); Basophil# 0.04 X10^3/uL; Basophil% 0.5 % (0-1); Eosinophil# 0.18 X10^3/uL; Eosinophils% 2.4 % (0-5); Hematocrit 35.7 % (37-47); Lymphocyte # 1.84 X10^3/ul (4.0); Lymphocyte % 24.8 % (19-41); Mean Corp Hgb Conc 30.8 g/dL (32-36); Mean Corpuscular Hgb 26.8 pg (27.0-32.0); Mean Corpuscular Volume 87.1 fL (81-99); Mean Platelet Vol. 11.5 fl (6.2-12.0); Monocyte# 0.42 X10^3/uL; Monocyte% 5.7 % (0-10); NRBC Flagged by Analyzer 0 % (0-5); Neutrophil # 4.91 X10^3/uL (2.7-7.7); Neutrophil % 66.2 % (47-70); Platelet Count 323 K/mm3 (150-450); RBC Distribution Width SD 41.3 fl (35.1-43.9); White Blood Count 7.4 K/mm3 (4.4-11.0)
[2020-11-15 08:05] VITALS: BP 148/90; PULSE 83; RESP 16; TEMP 36.6; O2SAT 100
[2020-11-15 08:16] VITALS: BMI 31.1
[2020-11-15] MEDS: Pramipexole Di-HCl 1 MG Tablet 1.5 MG PO (08:19)
[2020-11-15] MEDS: Iron Polysaccharide Complex 150 MG CAPSULE PO (08:19)
[2020-11-15] MEDS: Isosorbide Mononitrate 30 MG Tablet PO (08:20)
[2020-11-15] MEDS: Insulin Lispro 100 UNIT/ML INSULN.PEN 20 UNIT SC ×2 (08:21→12:03)
[2020-11-15] MEDS: Insulin Lispro 100 UNIT/ML INSULN.PEN SC ×2 (08:21→12:04)
[2020-11-15] MEDS: Polyethylene Glycol 3350 17 GM PACKET PO (08:21)
[2020-11-15] MEDS: Enoxaparin 40 MG/0.4 ML Syringe SC (08:21)
[2020-11-15] MEDS: Clopidogrel Bisulfate 75 MG Tablet PO (08:23)
[2020-11-15 08:28] LABS: Anion Gap 7 (5-15); BUN 32 mg/dL (7-18); BUN/Creat Ratio 18.2 RATIO (10-20); Calcium,Total 9.1 mg/dL (8.5-10.1); Chloride 101 mmol/L (98-107); Cholesterol 201 mg/dL (200); Creatinine, Serum 1.76 mg/dL (0.55-1.02); EST Glomerular Filtration Rate 32 mL/min (>60); Est Glom Filt Rate - Afr Amer 39 mL/min (>60); Estimated Creatinine Clearance 33.81 ml/min; Glucose 430 mg/dL (74-106); High Density Lipoprotein 51 mg/dL; Sodium Level 135 mmol/L (136-145); Triglycerides 330 mg/dL; Very Low Density Lipoprotein 66 mg/dL (5-40)
[2020-11-15 09:16] LABS: Bedside Glucose 417 mg/dL (70-110)
[2020-11-15 11:56] VITALS: BP 108/54; BP 122/73; BP 131/77; PULSE 102; PULSE 90; PULSE 94; RESP 16; TEMP 36.8; O2SAT 98
--- NOTE | 2020-11-15 12:08 | PCM.DC ---
- Discharge Diagnoses Current Active Problems: Current Active and Chronic Problems (This Medical Record has been edited. Action required.) Ulcer of right ankle (Chronic) Ulcer of left foot with muscle involvement without evidence of necrosis (Chronic) Diabetic infection of left foot (Chronic) Anemia (Chronic) Anxiety and depression (Chronic) RLS (restless legs syndrome) (Chronic) Uncontrolled type II diabetes mellitus (Chronic) Obesity (Chronic) Debility (Chronic) Foot ulcer, left (Chronic) Cellulitis of left foot (Chronic) Coronary artery disease (Chronic) Hypertension (Chronic) Diabetic polyneuropathy (Chronic) GERD (gastroesophageal reflux disease) (Chronic) Depression (Chronic) Anxiety (Chronic) Diabetes mellitus (Chronic) Atherosclerosis of [place] coronary artery of [place] heart without angina pectoris (Chronic) Essential (primary) hypertension (Chronic) HLD (hyperlipidemia) (Chronic) You will use the following diet at home:: Calorie/Carbohydrate Controlled (specify 1200, 1400, etc) - 1800 jose / day, Cardiac Your food should be the consistency of: Regular Your liquids should be the consistency of: Regular/Thin Discharge Activity: Return to Normal Activity, May not drive while taking narcotic pain medications. Allergies/Adverse Reactions: Allergies Penicillins Allergy (Verified 11/14/20 08:30) Shortness of breath vancomycin Allergy (Verified 11/14/20 08:30) Itching metronidazole Adverse Reaction (Verified 11/14/20 08:30) Nausea OXYCONTIN Allergy (Uncoded 11/14/20 08:30) Shortness of breath Medications to take at Discharge Gabapentin [Neurontin] 900 mg PO TIDCM 09/20/18 atorvastatin 80 mg tablet 80 mg PO QHS #90 tab 11/30/19 clopidogrel 75 mg tablet 75 mg PO DAILY #90 tab 11/30/19 Insulin Lispro [Humalog KwikPen] 20 unit SC TIDCM 08/31/20 Insulin Glargine [Lantus SoloStar Pen] 35 units SC DAILY 09/12/20 Iron Polysaccharide Complex [Ferrex 150] 150 mg PO DAILYCM 09/12/20 Isosorbide Mononitrate [Isosorbide Mononitrate ER] 30 mg PO DAILY 09/12/20 Paroxetine [Paxil] 20 mg PO QHS 09/12/20 Pramipexole Di-HCl [Mirapex] 1.5 mg PO BID 09/12/20 Acetaminophen [Tylenol] 1,000 mg PO Q6H PRN PRN tab 09/19/20 Oxycodone [Oxyir] 5 mg PO Q4H PRN PRN 3 Days #18 tab 09/19/20 Peg 400/Hypromellose/Glycerin [Artificial Tears] 2 drp EACH EYE Q1H PRN bottle 09/19/20 Polyethylene Glycol 3350 [Miralax] 17 gm PO DAILY 11/14/20 Aspirin [Aspirin, Baby] 81 mg PO DAILY@0800 tab.chew 11/15/20 Primary Care Physician: Raúl Eric MD [Primary Care Provider] - Please follow up with your Primary Care Physician in: 1-2 weeks Test Results: Test results from this visit will be discussed in further detail at your follow-up appointment, if applicable. Please Follow Up With: Chandana Harvey MD When: 2 weeks Please Follow Up With: Joana Cuevas DPM - wound center When: 1-2 weeks Proposed Discharge Date: 11/15/20
[2020-11-15 12:25] LABS: Bedside Glucose 263 mg/dL (70-110)
--- NOTE | 2020-11-15 13:22 | DS.PCM_ITS ---
<Donovan Samuels - Last Filed: 11/15/20 13:22> Discharge Date and Diagnosis Date of Admission: 11/14/20 Date of Discharge: 11/15/20 - Primary Discharge Diagnosis Acute Problems: Acute versus subacute basal ganglia infarcts - Secondary Discharge Diagnosis Chronic Problems: Chronic Problems (This Medical Record has been edited. Action required.) Ulcer of right ankle (Chronic) Ulcer of left foot with muscle involvement without evidence of necrosis (Chronic) Diabetic infection of left foot (Chronic) Anemia (Chronic) Anxiety and depression (Chronic) RLS (restless legs syndrome) (Chronic) Uncontrolled type II diabetes mellitus (Chronic) Obesity (Chronic) Debility (Chronic) Foot ulcer, left (Chronic) Cellulitis of left foot (Chronic) Coronary artery disease (Chronic) Hypertension (Chronic) Diabetic polyneuropathy (Chronic) GERD (gastroesophageal reflux disease) (Chronic) Depression (Chronic) Anxiety (Chronic) Diabetes mellitus (Chronic) Atherosclerosis of [place] coronary artery of [place] heart without angina pectoris (Chronic) Essential (primary) hypertension (Chronic) HLD (hyperlipidemia) (Chronic) Hospital Course and Treatment Imaging Results: CT/STROKE Brain/Head without Cont IMPRESSION: Normal unenhanced CT scan of the brain. CT/STROKE CTA Head AND Neck W/Con IMPRESSION: Minimal calcific plaque at the origin of the right and left internal carotid arteries. RAD/Chest 1 View IMPRESSION: Normal x-ray examination of the chest. MRI/Brain without Contrast IMPRESSION: Recent, acute or subacute, basal ganglia infarcts. No hemorrhage. Consultations 11/14/20 11:15 Consult: Onc/Wound/size tester Routine Comment: Operations: None, - Summary of Care Provided: Hospital course: The patient is a 55 year old F with past medical history of type 2 diabetes with severe peripheral neuropathy, recent wound-abscess treated by podiatry, history of hypertension, ischemic cardiomyopathy, ADD, who presented to the emergency room with her mental status. CT of the brain showed no acute process. CTA of the head and neck demonstrated mild changes. Patient was admitted with concern for underlying CVA. An MRI of the brain was obtained which did demonstrate acute basal ganglia infarcts. Patient's mental status resolved to her baseline. She was placed on aspirin in addition to the high-dose statin and Plavix she was already taking at home. Neurology was consulted. They recommended the same. She was seen by PT and OT and had some underlying debility-home health care was recommended. She was also seen by podiatry while she was here who recommended outpatient follow-up in the wound care center and that she had no acute needs for her chronic foot wound at this time. Patient was discharged home with home health care in stable condition. She will follow up with her PCP in 1 to 2 weeks, neurology in 2 weeks, podiatry in the wound care center in 1 to 2 weeks. This patient was seen by Donovan Samuels PA-C under the supervision of Doctor Johan. [] - Physical Exam Vitals/I&O's: Vital Signs Temp Pulse Resp BP Pulse Ox 98.2 F 90 16 131/77 H 98 11/15/20 11:56 11/15/20 11:56 11/15/20 11:56 11/15/20 11:56 11/15/20 11:56 Oxygen Delivery Method Room Air Weight: 193 lb 3.198 oz Body Mass Index (BMI) 31.1 Finger Stick Blood Glucose 133 Orthostatic Vital Signs Start: 11/15/20 11:51 Freq: q24h Status: Active Protocol: Activity Type Activity Date Activity User E-Sign Co-Sign Detail Recorded Client Recorded Date Recorded By Document 11/15/20 11:56 ASHWIN [id number] 11/15/20 11:56 ASHWIN 11/15/20 11:56 Orthostatic Vitals Standing -Blood Pressure (90/60-120/80) 108/54 L -Extremity Use Right Arm -Pulse Rate (60-100) 102 H Sitting -Blood Pressure (90/60-120/80) 122/73 H -Extremity Use Right Arm -Pulse Rate (60-100) 94 Lying -Blood Pressure (90/60-120/80) 131/77 H -Extremity Use Right Arm -Pulse Rate (60-100) 90 Intake and Output for Last 24 Hours 11/13/20 11/14/20 11/15/20 23:59 23:59 23:59 Intake Total 560 / 560 240 / 240 Balance 560 / 560 240 / 240 General: Alert, Oriented x3, Cooperative HEENT: Atraumatic, PERRLA, EOMI, Normocephalic Neck: Supple, No JVD, Negative Carotid Bruits Lungs: Clear to auscultation, Normal air movement Cardiovascular: Regular rate, No murmurs Abdomen: Bowel Sounds Present, Soft, Non Tender Extremities: No edema, Capillary Refill Less than 3 Seconds Skin: No rashes, No breakdown Musculoskeletal: No Tenderness to Palpation of Joints or Extremities Neurological: Cranial nerves II-XII grossly intact Psych/Mental Status: Normal Affect, Appropriate, Alert and oriented to time, place, person, mood and affect Microbiology Past 72 Hours 11/14/20 15:40 Wound - Left Foot Gram Stain - Final 11/14/20 15:40 Wound - Left Foot Wound Culture - Preliminary Gram negative elinor Gram positive organism Laboratory Results 11/14/20 15:40: S.aureus Protein A PCR NEGATIVE, MRSA (PCR) Negative 11/14/20 16:26: POC Glucose 352 H 11/15/20 07:05: WBC 7.4, RBC 4.10 L, Hgb 11.0 L, Hct 35.7 L, MCV 87.1, MCH 26.8 L, MCHC 30.8 L, RDW Std Deviation 41.3, RDW Coeff of Fior 13.0, Plt Count 323, MPV 11.5, Immature Gran % (Auto) 0.400, Neut % (Auto) 66.2, Lymph % (Auto) 24.8, Alexander % (Auto) 5.7, Eos % (Auto) 2.4, Baso % (Auto) 0.5, Absolute Neuts (auto) 4.9, Absolute Lymphs (auto) 1.84, Nucleated RBC % 0 11/15/20 07:05: Sodium 135 L, Potassium 4.0, Chloride 101, Carbon Dioxide 27.0, Anion Gap 7, BUN 32 H, Creatinine 1.76 H, Estim Creat Clear Calc 33.81, Est GFR (MDRD) Af Amer 39 L, Est GFR (MDRD) Non-Af 32 L, BUN/Creatinine Ratio 18.2, Glucose 430 H, Calcium 9.1, Triglycerides 330 H, Cholesterol 201 H, LDL Cholesterol 84, VLDL Cholesterol 66 H, HDL Cholesterol 51 11/15/20 07:57: POC Glucose 417 H 11/15/20 12:02: POC Glucose 263 H Current Medications Acetaminophen (Acetaminophen 500 Mg Tablet) 1,000 mg PO Q6H PRN PRN PRN Reason: Pain Score 1-10 Last Admin: 11/15/20 00:23 Dose: 1,000 mg Documented by: Aspirin (Aspirin 81 Mg Tab.Chew) 81 mg PO DAILY@0800 [facility] Atorvastatin Calcium (Atorvastatin Calcium 80 Mg Tablet) 80 mg PO QHS [facility] Last Admin: 11/14/20 21:42 Dose: 80 mg Documented by: Clopidogrel Bisulfate (Clopidogrel Bisulfate 75 Mg Tablet) 75 mg PO DAILY [facility] Last Admin: 11/15/20 08:23 Dose: 75 mg Documented by: Dextrose (Dextrose 50%-Water 25 Gm/50 Ml Disp.Syrin) 0 gm IV X1 PRN; Protocol PRN Reason: Hypoglycemia Enoxaparin Sodium (Enoxaparin 40 Mg/0.4 Ml Syringe) 40 mg SC DAILY [facility] Last Admin: 11/15/20 08:21 Dose: 40 mg Documented by: Glucagon (Glucagon 1 Mg/Ml Syringe) 1 mg IM .X1 PRN PRN Reason: Hypoglycemia Hydralazine HCl (Hydralazine 20 Mg/Ml Vial) 5 mg IV Q30M PRN PRN Reason: to maintain BP goals Insulin Glargine (Insulin Glargine 100 Units/Ml Pen) 35 units SC DAILY [facility] Last Admin: 11/15/20 08:22 Dose: 35 u Documented by: Insulin Human Lispro (Insulin Lispro 100 Unit/Ml Insuln.Pen) 20 unit SC TIDCM [facility] Last Admin: 11/15/20 12:03 Dose: 20 u Documented by: Insulin Human Lispro (Insulin Lispro 100 Unit/Ml Insuln.Pen) 0 unit SC TIDAC [facility]; Protocol Last Admin: 11/15/20 12:04 Dose: 9 u Documented by: Isosorbide Mononitrate (Isosorbide Mononitrate 30 Mg Tablet) 30 mg PO DAILY [facility] Last Admin: 11/15/20 08:20 Dose: 30 mg Documented by: Labetalol HCl (Labetalol (Prefilled) 20 Mg/4 Ml) 10 - 20 mg IV Q10M PRN PRN PRN Reason: to Maintain BP Goals Nutritional Formula (Lactose Free) (Glucerna Shake 120 Ml Liquid) 120 ml PO 4X/DAY [facility] Last Admin: 11/15/20 08:23 Dose: Not Given Documented by: Ondansetron HCl (Ondansetron 4 Mg/2 Ml Vial) 4 mg IV Q6H PRN PRN PRN Reason: NAUSEA/VOMITING Polyethylene Glycol (Polyethylene Glycol 3350 17 Gm Packet) 17 gm PO DAILY [facility] Last Admin: 11/15/20 08:21 Dose: 17 gm Documented by: Polysaccharide Iron Complex (Iron Polysaccharide Complex 150 Mg Capsule) 150 mg PO DAILY [facility] Last Admin: 11/15/20 08:19 Dose: 150 mg Documented by: Pramipexole Dihydrochloride (Pramipexole Di-Hcl 1 Mg Tablet) 1.5 mg PO BID [facility] Last Admin: 11/15/20 08:19 Dose: 1.5 mg Documented by: Discharge Diet: Low fat/ Low Cholesterol, 2000 mg Sodium Diet Discharge Activity: Return to Normal Activity, May not drive while taking narcotic pain medications. Home Medications: Medications to take at Discharge Gabapentin [Neurontin] 900 mg PO TIDCM 09/20/18 atorvastatin 80 mg tablet 80 mg PO QHS #90 tab 11/30/19 clopidogrel 75 mg tablet 75 mg PO DAILY #90 tab 11/30/19 Insulin Lispro [Humalog KwikPen] 20 unit SC TIDCM 08/31/20 Insulin Glargine [Lantus SoloStar Pen] 35 units SC DAILY 09/12/20 Iron Polysaccharide Complex [Ferrex 150] 150 mg PO DAILYCM 09/12/20 Isosorbide Mononitrate [Isosorbide Mononitrate ER] 30 mg PO DAILY 09/12/20 Paroxetine [Paxil] 20 mg PO QHS 09/12/20 Pramipexole Di-HCl [Mirapex] 1.5 mg PO BID 09/12/20 Acetaminophen [Tylenol] 1,000 mg PO Q6H PRN PRN tab 09/19/20 Oxycodone [Oxyir] 5 mg PO Q4H PRN PRN 3 Days #18 tab 09/19/20 Peg 400/Hypromellose/Glycerin [Artificial Tears] 2 drp EACH EYE Q1H PRN bottle 09/19/20 Polyethylene Glycol 3350 [Miralax] 17 gm PO DAILY 11/14/20 Aspirin [Aspirin, Baby] 81 mg PO DAILY@0800 tab.chew 11/15/20 Primary Care Physician: Raúl Eric MD [Primary Care Provider] - Please follow up with your Primary Care Physician in: 1-2 weeks Please Follow Up With: Chandana Harvey MD When: 2 weeks Please Follow Up With: Joana Cuevas DPM - wound center When: 1-2 weeks Disposition: Home with Home Health Minutes spent on discharge:: 35 Patient Condition:: Stable Medical Necessity - Tobacco Use Smoking Status: Never smoker Tobacco Use: Non-smoker Meaningful Use Info Meaningful Use Diagnoses (Choose all that apply): Ischemic CVA - CVA Therapy Assessed for PT,OT and/or ST?: Yes - Ischemic Stroke Antithrombotic order at d/c?: Yes Dx of Atrial fib/flutter?: No Statins at discharge?: Yes Primary Dx Acute Ischemic CVA?: Yes IV tPA ordered during stay?: No Reason IV t-PA not ordered: Procedure not Indicated <Kali Prado - Last Filed: 11/15/20 15:18> Discharge Date and Diagnosis - Secondary Discharge Diagnosis Chronic Problems: Chronic Problems (This Medical Record has been edited. Action required.) Ulcer of right ankle (Chronic) Ulcer of left foot with muscle involvement without evidence of necrosis (Chronic) Diabetic infection of left foot (Chronic) Anemia (Chronic) Anxiety and depression (Chronic) RLS (restless legs syndrome) (Chronic) Uncontrolled type II diabetes mellitus (Chronic) Obesity (Chronic) Debility (Chronic) Foot ulcer, left (Chronic) Cellulitis of left foot (Chronic) Coronary artery disease (Chronic) Hypertension (Chronic) Diabetic polyneuropathy (Chronic) GERD (gastroesophageal reflux disease) (Chronic) Depression (Chronic) Anxiety (Chronic) Diabetes mellitus (Chronic) Atherosclerosis of [place] coronary artery of [place] heart without angina pe ctoris (Chronic) Essential (primary) hypertension (Chronic) HLD (hyperlipidemia) (Chronic) Hospital Course and Treatment Consultations 11/14/20 11:15 Consult: Onc/Wound/size tester Routine Comment: Operations: None Summary of Care Provided: Patient seen and examined independently. Data reviewed. I agree with the above note by the physician office services assistant. The patient is a 55 year old F presents with confusion. Patient underwent stroke work-up including MRI that did show acute base ganglia infarcts. Patient overall did resolve. Neurology recommended medical management for the patient's stroke. Patient is currently without sequela I of the strokes. Patient would continue with her aspirin and high intensity statin and clopidogrel. Patient will follow up with neurology as outpatient. Patient also has a left lower extremity wound to which she will continue to follow-up with wound care. [] - Physical Exam Vitals/I&O's: Vital Signs Temp Pulse Resp BP Pulse Ox 36.8 C 90 16 131/77 H 98 11/15/20 11:56 11/15/20 11:56 11/15/20 11:56 11/15/20 11:56 11/15/20 11:56 Oxygen Delivery Method Room Air Weight: 87.634 kg Body Mass Index (BMI) 31.1 Finger Stick Blood Glucose 133 Orthostatic Vital Signs Start: 11/15/20 11:51 Freq: q24h Status: Active Protocol: Activity Type Activity Date Activity User E-Sign Co-Sign Detail Recorded Client Recorded Date Recorded By Document 11/15/20 11:56 ASHWIN [id number] 11/15/20 11:56 ASHWIN 11/15/20 11:56 Orthostatic Vitals Standing -Blood Pressure (90/60-120/80) 108/54 L -Extremity Use Right Arm -Pulse Rate (60-100) 102 H Sitting -Blood Pressure (90/60-120/80) 122/73 H -Extremity Use Right Arm -Pulse Rate (60-100) 94 Lying -Blood Pressure (90/60-120/80) 131/77 H -Extremity Use Right Arm -Pulse Rate (60-100) 90 Intake and Output for Last 24 Hours 11/13/20 11/14/20 11/15/20 23:59 23:59 23:59 Intake Total 560 / 560 240 / 240 Balance 560 / 560 240 / 240 General: Alert, Cooperative HEENT: Atraumatic Psych/Mental Status: Normal Affect, Appropriate Microbiology Past 72 Hours 11/14/20 15:40 Wound - Left Foot Gram Stain - Final 11/14/20 15:40 Wound - Left Foot Wound Culture - Preliminary Gram negative elinor Gram positive organism Laboratory Results 11/14/20 15:40: S.aureus Protein A PCR NEGATIVE, MRSA (PCR) Negative 11/14/20 16:26: POC Glucose 352 H 11/15/20 07:05: WBC 7.4, RBC 4.10 L, Hgb 11.0 L, Hct 35.7 L, MCV 87.1, MCH 26.8 L, MCHC 30.8 L, RDW Std Deviation 41.3, RDW Coeff of Fior 13.0, Plt Count 323, MPV 11.5, Immature Gran % (Auto) 0.400, Neut % (Auto) 66.2, Lymph % (Auto) 24.8, Alexander % (Auto) 5.7, Eos % (Auto) 2.4, Baso % (Auto) 0.5, Absolute Neuts (auto) 4.9, Absolute Lymphs (auto) 1.84, Nucleated RBC % 0 11/15/20 07:05: Sodium 135 L, Potassium 4.0, Chloride 101, Carbon Dioxide 27.0, Anion Gap 7, BUN 32 H, Creatinine 1.76 H, Estim Creat Clear Calc 33.81, Est GFR (MDRD) Af Amer 39 L, Est GFR (MDRD) Non-Af 32 L, BUN/Creatinine Ratio 18.2, Glucose 430 H, Calcium 9.1, Triglycerides 330 H, Cholesterol 201 H, LDL Cholesterol 84, VLDL Cholesterol 66 H, HDL Cholesterol 51 11/15/20 07:57: POC Glucose 417 H 11/15/20 12:02: POC Glucose 263 H Current Medications Acetaminophen (Acetaminophen 500 Mg Tablet) 1,000 mg PO Q6H PRN PRN PRN Reason: Pain Score 1-10 Last Admin: 11/15/20 00:23 Dose: 1,000 mg Documented by: Aspirin (Aspirin 81 Mg Tab.Chew) 81 mg PO DAILY@0800 [facility] Atorvastatin Calcium (Atorvastatin Calcium 80 Mg Tablet) 80 mg PO QHS [facility] Last Admin: 11/14/20 21:42 Dose: 80 mg Documented by: Clopidogrel Bisulfate (Clopidogrel Bisulfate 75 Mg Tablet) 75 mg PO DAILY [facility] Last Admin: 11/15/20 08:23 Dose: 75 mg Documented by: Dextrose (Dextrose 50%-Water 25 Gm/50 Ml Disp.Syrin) 0 gm IV X1 PRN; Protocol PRN Reason: Hypoglycemia Enoxaparin Sodium (Enoxaparin 40 Mg/0.4 Ml Syringe) 40 mg SC DAILY [facility] Last Admin: 11/15/20 08:21 Dose: 40 mg Documented by: Glucagon (Glucagon 1 Mg/Ml Syringe) 1 mg IM .X1 PRN PRN Reason: Hypoglycemia Hydralazine HCl (Hydralazine 20 Mg/Ml Vial) 5 mg IV Q30M PRN PRN Reason: to maintain BP goals Insulin Glargine (Insulin Glargine 100 Units/Ml Pen) 35 units SC DAILY [facility] Last Admin: 11/15/20 08:22 Dose: 35 u Documented by: Insulin Human Lispro (Insulin Lispro 100 Unit/Ml Insuln.Pen) 20 unit SC TIDCM [facility] Last Admin: 11/15/20 12:03 Dose: 20 u Documented by: Insulin Human Lispro (Insulin Lispro 100 Unit/Ml Insuln.Pen) 0 unit SC TIDAC [facility]; Protocol Last Admin: 11/15/20 12:04 Dose: 9 u Documented by: Isosorbide Mononitrate (Isosorbide Mononitrate 30 Mg Tablet) 30 mg PO DAILY [facility] Last Admin: 11/15/20 08:20 Dose: 30 mg Documented by: Labetalol HCl (Labetalol (Prefilled) 20 Mg/4 Ml) 10 - 20 mg IV Q10M PRN PRN PRN Reason: to Maintain BP Goals Nutritional Formula (Lactose Free) (Glucerna Shake 120 Ml Liquid) 120 ml PO 4X/DAY [facility] Last Admin: 11/15/20 08:23 Dose: Not Given Documented by: Ondansetron HCl (Ondansetron 4 Mg/2 Ml Vial) 4 mg IV Q6H PRN PRN PRN Reason: NAUSEA/VOMITING Polyethylene Glycol (Polyethylene Glycol 3350 17 Gm Packet) 17 gm PO DAILY [facility] Last Admin: 11/15/20 08:21 Dose: 17 gm Documented by: Polysaccharide Iron Complex (Iron Polysaccharide Complex 150 Mg Capsule) 150 mg PO DAILY [facility] Last Admin: 11/15/20 08:19 Dose: 150 mg Documented by: Pramipexole Dihydrochloride (Pramipexole Di-Hcl 1 Mg Tablet) 1.5 mg PO BID [facility] Last Admin: 11/15/20 08:19 Dose: 1.5 mg Documented by: Discharge Diet: Low fat/ Low Cholesterol, 2000 mg Sodium Diet Discharge Activity: Return to Normal Activity, May not drive while taking narcotic pain medications. Disposition: Home with Home Health Minutes spent on discharge:: 35 Patient Condition:: Stable Medical Necessity - Tobacco Use Smoking Status: Never smoker Tobacco Use: Non-smoker Meaningful Use Info Meaningful Use Diagnoses (Choose all that apply): Ischemic CVA - CVA Therapy Assessed for PT,OT and/or ST?: Yes - Ischemic Stroke Antithrombotic order at d/c?: Yes Dx of Atrial fib/flutter?: No Statins at discharge?: Yes Primary Dx Acute Ischemic CVA?: Yes IV tPA ordered during stay?: No Reason IV t-PA not ordered: Procedure not Indicated OBSV E&M: 54034 Observation care discharge
--- NOTE | 2020-11-15 13:47 | CASEMGMT ---
SOCIAL WORK Follow up with patient regarding PHQ9 score. Discussed counseling and providers. Patient open to referral to [facility], spoke with Sabine from [facility]. [facility] to follow up with patient to set up appointment. Patient updated. Plan: Home with Home Health and referral for counseling Scot Sheikh MSW, CONSULTING HR PROFESSIONAL
--- NOTE | 2020-11-15 15:22 | CM.UR ---
Patient already patient at [facility]. Left VM on on-call nurse phone explaining this patient was observation 11/14-11/15, being discharged today. Explained I'll fax dc summary and instruction to them. Diya Dillon RN,CCM.
== END 2020-11-15 12:09 | disposition home health service (06) ==
LOC: ED 09:07 → PCU 12:01
PROVIDERS: Emergency Provider Student in an Organized Health Care Education/Training Program; PCP Family Medicine
DX: I63.9 Cerebral infarction, unspecified (principal); E78.5 Hyperlipidemia, unspecified; K21.9 Gastro-esophageal reflux disease without esophagitis; G93.40 Encephalopathy, unspecified; R53.1 Weakness; I25.10 Atherosclerotic heart disease of native coronary artery without angina pectoris; E11.42 Type 2 diabetes mellitus with diabetic polyneuropathy; F32.9 Major depressive disorder, single episode, unspecified; F41.9 Anxiety disorder, unspecified; G25.81 Restless legs syndrome; E11.621 Type 2 diabetes mellitus with foot ulcer; E11.22 Type 2 diabetes mellitus with diabetic chronic kidney disease; D64.9 Anemia, unspecified; I25.2 Old myocardial infarction; E66.9 Obesity, unspecified; L97.525 Non-pressure chronic ulcer of other part of left foot with muscle involvement without evidence of necrosis; L97.319 Non-pressure chronic ulcer of right ankle with unspecified severity; I12.9 Hypertensive chronic kidney disease with stage 1 through stage 4 chronic kidney disease, or unspecified chronic kidney disease; N18.9 Chronic kidney disease, unspecified; I25.5 Ischemic cardiomyopathy; Z79.899 Other long term (current) drug therapy; Z79.4 Long term (current) use of insulin; Z79.02 Long term (current) use of antithrombotics/antiplatelets; Z68.31 Body mass index [BMI] 31.0-31.9, adult
CPT/HCPCS: 36415; 70450; 70496; 70498; 70551; 71045; 80048; 80061; 82962; 84484; 85025; 85610; 85730; 87070; 87075; 87077; 87186; 87205; 87640; 92610; 93005; 94762; 96372; 97162; 97166; 97802; 99218; 99285; Q9967; A4216; G0378

== ENCOUNTER 2020-12-05 11:30 | Outpatient (RCR) | payer MEDICARE, SELFPAY ==
[2018-09-21 13:23] VITALS: BMI 29.3
[2020-11-10 00:10] VITALS: BP 129/70; PULSE 99; RESP 16; TEMP 36.7
[2020-11-11 11:15] VITALS: BP 160/77; PULSE 101; RESP 16; TEMP 36.3; BMI 32.4
--- NOTE | 2020-11-11 11:43 | PCM.WC.PN ---
(1) Ulcer of right ankle Status: Acute Qualifiers: Code(s): L97.319 - Non-pressure chronic ulcer of right ankle with unspecified severity (2) Ulcer of left foot with muscle involvement without evidence of necrosis Status: Acute Code(s): L97.525 - Non-pressure chronic ulcer of other part of left foot with muscle involvement without evidence of necrosis (3) Uncontrolled type II diabetes mellitus Status: Chronic Qualifiers: Code(s): E11.65 - Type 2 diabetes mellitus with hyperglycemia (4) Obesity Status: Chronic Qualifiers: Code(s): E66.9 - Obesity, unspecified Type of Wound Date of Service: 11/11/20 Chief Complaint: Right ankle diabetic ulcer. left foot ulcer History of Wound: Patient is a 55-year-old female who presents to the clinic for follow-up of hospital stay for a left foot chronic ulceration. Patient had an I&D performed in the hospital by Dr. Guadarrama on 09/08/2020. That time patient was noted to have infection to left foot wound with Staphylococcus and Enterobacter which was treated during her stay at the hospital and TCU. Patient has had this ulceration for quite some time. 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 Patient also was noted to have bilateral varus foot deformity. Patient has a noted history of poor compliance of medical recommendations. Patient presents to the office ambulating in an CAM boot with offloaded insert with the assistance of crutches. She found the screw needed for the handpiece but was unable to find the washer for it so it is unstable. Patient was noted to have course of antibiotics while in the hospital. Since being discharged from the hospital patient has missed several of her follow-up appointments including here at the wound care center as well as with her primary care physician. She states issues with transportation. Patient to a follow-up appointment with infectious disease November 12, 2020. Patient is unsure on what time her appointment is tomorrow and is not sure she will be able to make it. Patient relates not being able to get her medications after discharge including insulin and had her blood sugar get out of control during that period up to 600. Patient states that she did not call anyone or go to the emergency department when she found her blood sugar being 600. She states that since then she has been able to get her insulins and her blood sugar has been running more around the 200s which is normal for her. Patient states that she is still doing her wound VAC and with nursing coming out to assist. Patient relates that the wound VAC alarmed yesterday with a leak and had to remove it in place wet-to-dry on instead. Patient also relates that she is largely nonweightbearing by sitting in a chair or on the couch she also uses a wheelchair at home. She does admit to external rotation of the lower extremities which could be a contributing factor to ulcer breakdown of the right lateral ankle. She also admits to having offloading boot that she does not wear at night as she states she kicks it off due to her restless leg syndrome. She relates that she has a in [place] and visits him for months at a time when she has the funds. This has contributed to her noncompliance. Patient also relates having ulceration to the right lateral ankle that began in the middle of September 2020 she believes that this started while sleeping with her restless leg syndrome. Patient relates that the wound has worsened beginning of October 2020. Especially after falling in a hole while walking in the yard where her foot and dressing got wet as well as a. Of 1 day where her wound VAC battery but the VAC was left in place. Patient was made aware that leaving the wound VAC on without the machine on will be detrimental to her healing process. Patient expresses concern over losing her foot but seems reluctant to follow treatment recommendations. She does not seem willing or capable to follow instructions. Progress of Wound: Stable left plantar wound with bone exposure. Stable right ankle wound Subjective: Patient seen and examined bedside. Patient denies any new pedal complaints. Patient denies any nausea, fever, chills, chest pain, shortness of breath, cough, streaking, purulence, vomiting. Patient relates that wound VAC alarmed with a leak and removed in place with a dry dressing at that time. Patient has no other new pedal complaints - Physical Exam Vital Signs Temp Pulse Resp BP 97.3 F L 101 H 16 160/77 H 11/11/20 11:15 11/11/20 11:15 11/11/20 11:15 11/11/20 11:15 General: Alert, Oriented x3 HEENT: Atraumatic Abdomen: Obese Extremities: No clubbing, No cyanosis, No edema, Capillary Refill Less than 3 Seconds, No Calf Tenderness, Diminished Peripheral Pulses Skin: Ulcer/ Wound - Left plantar foot. No malodor, erythema, purulence, streaking, or other signs of infection. Skin is atrophic and hairless. Probes to bone and tendon. Granular base with serosanguineous drainage after debridement. Periwound callus and maceration noted no great change from previous visit, - - Right lateral ankle ulceration. No malodor, erythema, purulence, probing to bone, streaking, or other signs of infection. Skin is atrophic and hairless. Granular base with serosanguineous drainage after debridement Wound Measurements and Assessment WC - Nurse 1 - General Ulcer Measurement Start: 11/11/20 11:15 Freq: Status: Active Protocol: Activity Type Activity Date Activity User E-Sign Co-Sign Detail Recorded Client Recorded Date Recorded By Document 11/11/20 11:15 LISSY [id number] 11/11/20 11:17 LISSY 11/11/20 11:15 Wound Center Nurse 1 [Ulcer Assessment] #17 R Lat Ankle -Combined with other wound No -Current Size (cm) - Length 2.7 -Current Size (cm) - Width 2 -Current Size (cm) - Depth 0.2 -Total Square Cm 5.4 -Photo Taken No -Epithelialization Small 1-33% -Tunneling No -Undermining/Tunneling No -Circular Undermining No -Exudate Amt Small -Exudate Type Serosanguineous -Wound Margin Flat & Intact -Granulation Amt Large (67-100%) -Granulation Quality Red -Slough/Fibrin Yes -Necrosis Amt Small (1-33%) -Necrotic Tissue Type Adherent Slough -Structure Exposed N/A -Texture (Natacha-wound Skin Appearance) Assessed -Moisture (Natacha-wound Skin Appearance Assessed ) -Color (Natacha-wound Skin Appearance) Assessed -Temperature (Natacha-wound Skin No Abnormality Appearance) (Pt Warm) -Tenderness on Palpation (Natacha-wound No Skin Appearance) -Ulcer Cleansing Wound Cleanser -Foul Odor after Cleansing No -Anesthetic Used 4% Lidocaine Solution #16 L Plantar med foot -Combined with other wound No -Current Size (cm) - Length 3.4 -Current Size (cm) - Width 3.3 -Current Size (cm) - Depth 1.5 -Total Square Cm 11.22 -Photo Taken No -Epithelialization None Present -Tunneling No -Undermining/Tunneling No -Circular Undermining No -Exudate Amt Large -Exudate Type Serosanguineous -Wound Margin Thickened -Granulation Amt Large (67-100%) -Granulation Quality Red -Slough/Fibrin Yes -Necrosis Amt Small (1-33%) -Necrotic Tissue Type Adherent Slough -Structure Exposed N/A -Texture (Natacha-wound Skin Appearance) Assessed -Moisture (Natacha-wound Skin Appearance Assessed ) -Color (Natacha-wound Skin Appearance) Assessed -Temperature (Natacha-wound Skin No Abnormality Appearance) (Pt Warm) -Tenderness on Palpation (Natacha-wound No Skin Appearance) -Ulcer Cleansing Wound Cleanser -Foul Odor after Cleansing No -Anesthetic Used 4% Lidocaine Solution [Edema Assessment] -Lower Limb Edema Present NA WC - Nurse 2 - General Ulcer CM Notes Start: 11/11/20 11:15 Freq: Status: Active Protocol: Activity Type Activity Date Activity User E-Sign Co-Sign Detail Recorded Client Recorded Date Recorded By Document 11/11/20 11:20 LISSY [id number] 11/11/20 11:42 LISSY 11/11/20 11:20 Wound Center Nurse 2 [Procedure/Treatment] #17 R Lat Ankle -Time 11:20 -Correct Patient Yes -Correct Side, Site, Position Yes -Correct Procedure Yes -Procedure Performed Yes -Type of Procedure Debridement -Clinical Debridement Subcutaneous -Tissue Removed Subcutaneous -Post Debridement (cm) - Length 2.5 -Post Debridement (cm) - Width 2 -Post Debridement (cm) - Depth 0.2 -Total Square (Post) (cm) 5.0 -Area of Debridement (cm) - Length 2.5 -Area of Debridement (cm) - Width 2 -Total Square (Area) (cm) 5.0 -Tunneling No -Undermining/Tunneling No -Circular Undermining No -Wound/Ulcer Outcome Not Healed -Ulcer Cleansing Rinsed/ Irrigated with Saline -Foul Odor after Cleansing No -Bioengineered Tissue No -Bleeding Controlled with Pressure -Offloading Yes -Type of Offloading Surgical Shoe -Treatment Response Procedure Tolerated Well -Debridement - Subq, 1st 20sq cm Yes #16 L Plantar med foot -Time 11:21 -Correct Patient Yes -Correct Side, Site, Position Yes -Correct Procedure Yes -Procedure Performed Yes -Type of Procedure Debridement -Clinical Debridement Subcutaneous -Tissue Removed Subcutaneous -Post Debridement (cm) - Length 3.5 -Post Debridement (cm) - Width 3.5 -Post Debridement (cm) - Depth 1.5 -Total Square (Post) (cm) 12.25 -Area of Debridement (cm) - Length 3.5 -Area of Debridement (cm) - Width 3.5 -Total Square (Area) (cm) 12.25 -Tunneling No -Undermining/Tunneling No -Circular Undermining No -Wound/Ulcer Outcome Not Healed -Ulcer Cleansing Rinsed/ Irrigated with Saline -Foul Odor after Cleansing No -Bioengineered Tissue No -Bleeding Controlled with Pressure -Offloading Yes -Type of Offloading Total Contact Cast (TCC) - Left ($) -Treatment Response Procedure Tolerated Well -Debridement - Subq, 1st 20sq cm No [See Physician Procedure note for Specifics] Pain Scale: 0-10 Numeric [Pain] -Is Patient Pain Free? Yes Musculoskeletal: No Tenderness to Palpation of Joints or Extremities, Muscle Wasting, - - Varus foot type Neurological: - - Lack of epicritic sensation consistent with neuropathy Psych/Mental Status: Normal Affect, Appropriate Debridement Note Post-Debridement Measurements/Treatment WC - Nurse 2 - General Ulcer CM Notes Start: 11/11/20 11:15 Freq: Status: Active Protocol: Activity Type Activity Date Activity User E-Sign Co-Sign Detail Recorded Client Recorded Date Recorded By Document 11/11/20 11:20 LISSY [id number] 11/11/20 11:42 LISSY 11/11/20 11:20 Wound Center Nurse 2 #17 R Lat Ankle -Time 11:20 -Correct Patient Yes -Correct Side, Site, Position Yes -Correct Procedure Yes -Procedure Performed Yes -Type of Procedure Debridement -Clinical Debridement Subcutaneous -Tissue Removed Subcutaneous -Post Debridement (cm) - Length 2.5 -Post Debridement (cm) - Width 2 -Post Debridement (cm) - Depth 0.2 -Total Square (Post) (cm) 5.0 -Area of Debridement (cm) - Length 2.5 -Area of Debridement (cm) - Width 2 -Total Square (Area) (cm) 5.0 -Tunneling No -Undermining/Tunneling No -Circular Undermining No -Wound/Ulcer Outcome Not Healed -Ulcer Cleansing Rinsed/ Irrigated with Saline -Foul Odor after Cleansing No -Bioengineered Tissue No -Bleeding Controlled with Pressure -Offloading Yes -Type of Offloading Surgical Shoe -Treatment Response Procedure Tolerated Well -Debridement - Subq, 1st 20sq cm Yes #16 L Plantar med foot -Time 11:21 -Correct Patient Yes -Correct Side, Site, Position Yes -Correct Procedure Yes -Procedure Performed Yes -Type of Procedure Debridement -Clinical Debridement Subcutaneous -Tissue Removed Subcutaneous -Post Debridement (cm) - Length 3.5 -Post Debridement (cm) - Width 3.5 -Post Debridement (cm) - Depth 1.5 -Total Square (Post) (cm) 12.25 -Area of Debridement (cm) - Length 3.5 -Area of Debridement (cm) - Width 3.5 -Total Square (Area) (cm) 12.25 -Tunneling No -Undermining/Tunneling No -Circular Undermining No -Wound/Ulcer Outcome Not Healed -Ulcer Cleansing Rinsed/ Irrigated with Saline -Foul Odor after Cleansing No -Bioengineered Tissue No -Bleeding Controlled with Pressure -Offloading Yes -Type of Offloading Total Contact Cast (TCC) - Left ($) -Treatment Response Procedure Tolerated Well -Debridement - Subq, 1st 20sq cm No Pain Scale: 0-10 Numeric Is Patient Pain Free? Yes Wound debrided: Plantar foot lateral Laterality: Left Wound Grade/Stage: Freedman 2 Type of Debridement: Excisional debridement Anesthesia Used: 4% Lidocaine Solution Depth: in the subcutaneous layer Percentage of wound debrided: 100 Instrument Used: 5mm curette Tissue Removed: Tissue removed includes fibrous, devitalized, biofilm, and slough tissue Severity: Fat Layer Exposed - Bone visualized Amount of bleeding with debridement: Mild Bleeding Controlled with: Pressure Patient tolerated procedure well - Additional Wound Wound debrided: Lateral ankle Laterality: Right Wound Grade/Stage: Freedman 1 Type of Debridement: Excisional debridement Anesthesia Used: 4% Lidocaine Solution Depth: in the subcutaneous layer Percentage of wound debrided: 100 Instrument Used: 5mm curette Tissue Removed: Tissue removed includes fibrous, devitalized, biofilm, and slough tissue Severity: Fat Layer Exposed Amount of bleeding with debridement: Mild Bleeding Controlled with: Pressure Patient tolerated procedure: Patient tolerated procedure well Assessment/Plan Active Problems (This Medical Record has been edited. Action required.) Ulcer of right ankle (Acute) Ulcer of left foot with muscle involvement without evidence of necrosis (Acute) Uncontrolled type II diabetes mellitus (Chronic) Obesity (Chronic) Assessment: Diabetic ulcer of right ankle -recurrent and no signs of infection, grade 1. Diabetic ulcer plantar left foot-recurrent no signs of infection, grade 2. Diabetic foot ulcer associated with type 2 diabetes mellitus. Hemoglobin A1c 9.17 Aug 2020. varus deformity bilateral lower extremities. malnutrition suspected. delayed healing Plan: Patient was carefully examined and evaluated in detail today. Subcutaneous excisional debridement of both ulcers done as noted in clinical panel after verbal consent. Procedure was well-tolerated. I recommend changing the dressing daily with Fibracol to the right ankle and left plantar foot. We will apply a total contact cast to the left foot to better offload as patient has struggled with this in the past. Patient is to follow-up on Tuesday for cast change to ensure that there is no new issues from application of the cast. This is also be used to assess if the amount of drainage is sufficiently controlled for a application of total contact cast. This has been discussed with the showcase trimmer for the Fridays provider to relay information for dressing change. If the total contact cast is not well tolerated we will consider returning to wound VAC. It is noted she is already been undergoing a comprehensive wound healing plan and has delayed and nonhealing. She appears to be stabilized from an infection standpoint and has had prior bone biopsies, wound culture, and intervention with infectious disease. I do not recommend any antibiotics today. Patient to follow-up with Dr. Tello tomorrow in infectious disease. Her lab work was reviewed within the past 3 months. She has suspected adequate vascular perfusion for healing per her recent noninvasive vascular studies 09/01/2020 with triphasic waveforms noted. Patient's hemoglobin A1c was 9.8 in August 2020. Offloading strongly recommended. She presents today ambulating in a CAM boot with offloading insert with crutches but the handpiece on the one crutch is not secured. Discussed that with the handpiece not well secured that it increases her risk for falling and encouraged her to get the other piece of the crutch to make it secure. Discussed that with the application total contact cast she will be able to put some weight through her foot which will also help to decrease any chances of falls. She admits she does not offload well at home and I advised her to take some accountability for this part of her healing plan. Also discussed various offloading methods such as pillows and an offloading boot for her right lateral ankle ulceration. Patient states that she has has tried all of these but she has restless leg syndrome and is not able to use any of these options as they all are kicked away. Discussed using these methods while awake and on couch to help offload the area even if she is unable to maintain this offloading while sleeping. Optimal blood sugar control and increased protein intake also discussed. All questions were answered and she was advised to call with any further questions or concerns. All signs and symptoms of local and systemic infection were discussed with the patient today. The lateral right ankle ulcer is stable today, the plantar left foot is still extending to the level of bone. A total contact cast was applied to the left lower extremity after application of Fibracol and dry sterile dressing with absorption layer. Fibracol dorsal dressing was applied to the right ankle. Patient reports no rubbing noted or areas of increased pressure after application of the total contact cast. To return to the wound healing center on Tuesday for cast exchange and examination and then in 1 week with me or call sooner she has any questions or concerns. All questions answered.
[2020-11-18 11:24] VITALS: BP 115/83; PULSE 101; RESP 20; TEMP 36; BMI 32.4
[2020-11-18 11:40] LABS: Bedside Glucose 301 mg/dL (70-110)
--- NOTE | 2020-11-18 12:32 | PCM.WC.PN ---
(1) Ulcer of right ankle Status: Chronic Qualifiers: Code(s): L97.319 - Non-pressure chronic ulcer of right ankle with unspecified severity (2) Ulcer of left foot with muscle involvement without evidence of necrosis Status: Chronic Code(s): L97.525 - Non-pressure chronic ulcer of other part of left foot with muscle involvement without evidence of necrosis (3) Uncontrolled type II diabetes mellitus Status: Chronic Qualifiers: Code(s): E11.65 - Type 2 diabetes mellitus with hyperglycemia (4) Obesity Status: Chronic Qualifiers: Code(s): E66.9 - Obesity, unspecified Type of Wound Date of Service: 11/19/20 Chief Complaint: Right ankle diabetic ulcer. left foot ulcer History of Wound: Patient is a 55-year-old female who presents to the clinic for follow-up of hospital stay for a left foot chronic ulceration. Patient had an I&D performed in the hospital by Dr. Guadarrama on 09/08/2020. That time patient was noted to have infection to left foot wound with Staphylococcus and Enterobacter which was treated during her stay at the hospital and TCU. Patient has had this ulceration for quite some time. 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 Patient also was noted to have bilateral varus foot deformity. Patient has a noted history of poor compliance of medical recommendations. Patient presents to the office ambulating in an CAM boot with offloaded insert with the assistance of crutches. She found the screw needed for the handpiece but was unable to find the washer for it so it is unstable. Patient was noted to have course of antibiotics while in the hospital. Since being discharged from the hospital patient has missed several of her follow-up appointments including here at the wound care center as well as with her primary care physician. She states issues with transportation. Patient to a follow-up appointment with infectious disease November 12, 2020. Patient failed to make appointment citing conflict with another doctors appointment. She hasn't rescheduled yet. . Patient relates not being able to get her medications after discharge including insulin and had her blood sugar get out of control during that period up to 600. Patient states that she did not call anyone or go to the emergency department when she found her blood sugar being 600. She states that since then she has been able to get her insulins and her blood sugar has been running more around the 200s which is normal for her. She did have an episode of 400 recently and states she didn't have her medicine with her at her daughters house. Patient states that she is still doing her wound VAC and with nursing coming out to assist. She was admitted to the hospital 11/14/20 for altered mental status. The TCC was removed at that time and patient was to resume wound vac, but [facility] hasn't been out since then to apply. Culture was obtained in the hospital growing enterobacter cloacae, klebsiella oxytoca, corynebacterium striatum, and enterococcus faecalis. This wasn't treated while in the hospital. Patient was started on clinda and cipro 11/18/20. Patient also relates that she is largely nonweightbearing by sitting in a chair or on the couch she also uses a wheelchair at home. She does admit to external rotation of the lower extremities which could be a contributing factor to ulcer breakdown of the right lateral ankle. She also admits to having offloading boot that she does not wear at night as she states she kicks it off due to her restless leg syndrome. She relates that she has a in [place] and visits him for months at a time when she has the funds. This has contributed to her noncompliance. Patient also relates having ulceration to the right lateral ankle that began in the middle of September 2020 she believes that this started while sleeping with her restless leg syndrome. Patient relates that the wound has worsened beginning of October 2020. Especially after falling in a hole while walking in the yard where her foot and dressing got wet as well as a. Patient had an episode where her wound VAC battery but the VAC was left in place for 10 hours. Patient was made aware that leaving the wound VAC on without the machine on will be detrimental to her healing process. Patient expresses concern over losing her foot but seems reluctant to follow treatment recommendations. She does not seem willing or capable to follow instructions. Progress of Wound: Stable left plantar wound with bone exposure. Stable right ankle wound Subjective: Patient seen and examined resting comfortably. Patient denies any new pedal complaints. Patient denies any nausea, fever, chills, chest pain, shortness of breath, cough, streaking, purulence, vomiting. - Physical Exam Vital Signs Temp Pulse Resp BP 96.8 F L 101 H 20 H 115/83 H 11/18/20 11:24 11/18/20 11:24 11/18/20 11:24 11/18/20 11:24 General: Alert, Oriented x3 HEENT: Atraumatic Abdomen: Obese Extremities: No clubbing, No cyanosis, Capillary Refill Less than 3 Seconds, No Calf Tenderness, Diminished Peripheral Pulses, Edema Skin: Ulcer/ Wound - right lateral ankle and left plantar foot. No malodor, erythema, purulence, streaking, or other signs of infection. Left foot probes to bone. Skin is atrophic and hairless. Granular base with serosanguineous drainage after debridement. Serous drainage noted, especially to left foot Wound Measurements and Assessment WC - Nurse 1 - General Ulcer Measurement Start: 11/11/20 11:15 Freq: Status: Active Protocol: Activity Type Activity Date Activity User E-Sign Co-Sign Detail Recorded Client Recorded Date Recorded By Document 11/18/20 11:24 BM [id number] 11/18/20 11:34 BMF 11/18/20 11:24 Wound Center Nurse 1 [Ulcer Assessment] #17 R Lat Ankle -Current Size (cm) - Length 2.7 -Current Size (cm) - Width 1.9 -Current Size (cm) - Depth 0.2 -Total Square Cm 5.13 -Photo Taken No -Exudate Amt Medium -Exudate Type Serosanguineous -Wound Margin Distinct, Outline Attached -Granulation Amt Large (67-100%) -Granulation Quality [place] -Necrosis Amt Small (1-33%) -Necrotic Tissue Type Adherent Slough -Structure Exposed N/A -Texture (Natacha-wound Skin Appearance) Scarring -Moisture (Natacha-wound Skin Appearance No Abnormality ) -Color (Natacha-wound Skin Appearance) Rubor -Temperature (Natacha-wound Skin No Abnormality Appearance) (Pt Warm) -Tenderness on Palpation (Natacha-wound No Skin Appearance) -Ulcer Cleansing Wound Cleanser -Foul Odor after Cleansing No -Anesthetic Used 4% Lidocaine Solution #16 L Plantar med foot -Current Size (cm) - Length 3.1 -Current Size (cm) - Width 2.8 -Current Size (cm) - Depth 1 -Total Square Cm 8.68 -Photo Taken No -Tunneling Position (O'clock) 1 -Tunneling Distance (cm) 1.3 -Exudate Amt Medium -Exudate Type Serosanguineous -Wound Margin Thickened -Granulation Amt Large (67-100%) -Granulation Quality Red -Necrosis Amt Small (1-33%) -Necrotic Tissue Type Adherent Slough -Structure Exposed N/A -Texture (Natacha-wound Skin Appearance) Callus -Moisture (Natacha-wound Skin Appearance Dry/Scaly ) -Color (Natacha-wound Skin Appearance) No Abnormality, Rubor -Temperature (Natacha-wound Skin No Abnormality Appearance) (Pt Warm) -Tenderness on Palpation (Natacha-wound No Skin Appearance) -Ulcer Cleansing Wound Cleanser -Foul Odor after Cleansing No -Anesthetic Used 4% Lidocaine Solution WC - Nurse 2 - General Ulcer CM Notes Start: 11/11/20 11:15 Freq: Status: Active Protocol: Activity Type Activity Date Activity User E-Sign Co-Sign Detail Recorded Client Recorded Date Recorded By Document 11/18/20 11:54 LISSY [id number] 11/18/20 12:06 LISSY 11/18/20 11:54 Wound Center Nurse 2 [Procedure/Treatment] #17 R Lat Ankle -Time 12:00 -Correct Patient Yes -Correct Side, Site, Position Yes -Correct Procedure Yes -Procedure Performed Yes -Type of Procedure Debridement -Clinical Debridement Subcutaneous -Tissue Removed Subcutaneous -Post Debridement (cm) - Length 2.7 -Post Debridement (cm) - Width 1.8 -Post Debridement (cm) - Depth 0.2 -Total Square (Post) (cm) 4.86 -Area of Debridement (cm) - Length 2.7 -Area of Debridement (cm) - Width 1.8 -Total Square (Area) (cm) 4.86 -Tunneling No -Undermining/Tunneling No -Circular Undermining No -Wound/Ulcer Outcome Not Healed -Ulcer Cleansing Rinsed/ Irrigated with Saline -Foul Odor after Cleansing No -Bioengineered Tissue No -Bleeding Controlled with Pressure -Offloading No -Treatment Response Procedure Tolerated Well -Debridement - Subq, 1st 20sq cm Yes #16 L Plantar med foot -Time 12:01 -Correct Patient Yes -Correct Side, Site, Position Yes -Correct Procedure Yes -Procedure Performed Yes -Type of Procedure Debridement -Clinical Debridement Subcutaneous -Tissue Removed Subcutaneous -Post Debridement (cm) - Length 3 -Post Debridement (cm) - Width 3 -Post Debridement (cm) - Depth 1.5 -Total Square (Post) (cm) 9 -Area of Debridement (cm) - Length 3 -Area of Debridement (cm) - Width 3 -Total Square (Area) (cm) 9 -Tunneling No -Undermining/Tunneling No -Circular Undermining No -Wound/Ulcer Outcome Not Healed -Ulcer Cleansing Rinsed/ Irrigated with Saline -Foul Odor after Cleansing No -Bioengineered Tissue No -Bleeding Controlled with Pressure -Offloading Yes -Type of Offloading Surgical Shoe -Treatment Response Procedure Tolerated Well -Debridement - Subq, 1st 20sq cm Yes [See Physician Procedure note for Specifics] Pain Scale: 0-10 Numeric [Pain] -Is Patient Pain Free? Yes - Nurse 3 - General Ulcer D/C NN Start: 11/11/20 11:15 Freq: Status: Active Protocol: Activity Type Activity Date Activity User E-Sign Co-Sign Detail Recorded Client Recorded Date Recorded By Document 11/18/20 12:14 JF [id number] 11/18/20 12:16 JF Document 11/18/20 12:22 DL [id number] 11/18/20 12:25 DL 11/18/20 11/18/20 12:14 12:22 Wound Care Nurse 3 [Wound Dressing] #17 R Lat Ankle -Ulcer Cleansing Rinsed/ Wound Cleanser Irrigated with Saline -Foul Odor after Cleansing No No -Primary Dressing Applied Fibracol Plus Fibracol Plus 4x4 4x4 -Primary Dressing Covered/Secured Dry Gauze & Dry Gauze & with Roll Gauze, Roll Gauze, Secured with Secured with Tape Tape -Fibracol Plus 4x4 1 1 #16 L Plantar med foot -Ulcer Cleansing Rinsed/ Wound Cleanser Irrigated with Saline -Foul Odor after Cleansing No No -Negative Pressure Wound Therapy Continue Continue -Setting (mmHg) 150 150 -Negative Pressure is Continuous Continuous -Other Dressing SKIN PREP [place] -NPWT Application Charge ($) NPWT </= 50 sq NPWT </= 50 sq cm cm [Compression Applied] Right -Compression Wrap [place] Wrap Left -Compression Wrap [place] Wrap [Post Procedure Tolerated] -Treatment Response Procedure Tolerated Well Pain Scale: 0-10 Numeric [Pain] -Is Patient Pain Free? Yes Yes - Visit Discharge [Visit Discharge Information] -Discharge Condition Stable Stable -Ambulatory Status Ambulatory Ambulatory, Wheelchair -Transportation Private Auto Private Auto -Medication Reconcilliation completed Yes & provided to patient/care provider -Clinical Summary of Care Provided Yes [Facility Notification] -Facility Type Home Health -Orders Sent Yes Musculoskeletal: Muscle Wasting Neurological: - - lack of epicritic sensation consistent with neuropathy Psych/Mental Status: Normal Affect, Appropriate Debridement Note Post-Debridement Measurements/Treatment WC - Nurse 2 - General Ulcer CM Notes Start: 11/11/20 11:15 Freq: Status: Active Protocol: Activity Type Activity Date Activity User E-Sign Co-Sign Detail Recorded Client Recorded Date Recorded By Document 11/11/20 11:20 [id number] 11/11/20 11:42 Document 11/18/20 11:54 [id number] 11/18/20 12:06 11/11/20 11/18/20 11:20 11:54 Wound Center Nurse 2 #17 R Lat Ankle -Time 11:20 12:00 -Correct Patient Yes Yes -Correct Side, Site, Position Yes Yes -Correct Procedure Yes Yes -Procedure Performed Yes Yes -Type of Procedure Debridement Debridement -Clinical Debridement Subcutaneous Subcutaneous -Tissue Removed Subcutaneous Subcutaneous -Post Debridement (cm) - Length 2.5 2.7 -Post Debridement (cm) - Width 2 1.8 -Post Debridement (cm) - Depth 0.2 0.2 -Total Square (Post) (cm) 5.0 4.86 -Area of Debridement (cm) - Length 2.5 2.7 -Area of Debridement (cm) - Width 2 1.8 -Total Square (Area) (cm) 5.0 4.86 -Tunneling No No -Undermining/Tunneling No No -Circular Undermining No No -Wound/Ulcer Outcome Not Healed Not Healed -Ulcer Cleansing Rinsed/ Rinsed/ Irrigated with Irrigated with Saline Saline -Foul Odor after Cleansing No No -Bioengineered Tissue No No -Bleeding Controlled with Pressure Pressure -Offloading Yes No -Type of Offloading Surgical Shoe -Treatment Response Procedure Procedure Tolerated Well Tolerated Well -Debridement - Subq, 1st 20sq cm Yes Yes #16 L Plantar med foot -Time 11:21 12:01 -Correct Patient Yes Yes -Correct Side, Site, Position Yes Yes -Correct Procedure Yes Yes -Procedure Performed Yes Yes -Type of Procedure Debridement Debridement -Clinical Debridement Subcutaneous Subcutaneous -Tissue Removed Subcutaneous Subcutaneous -Post Debridement (cm) - Length 3.5 3 -Post Debridement (cm) - Width 3.5 3 -Post Debridement (cm) - Depth 1.5 1.5 -Total Square (Post) (cm) 12.25 9 -Area of Debridement (cm) - Length 3.5 3 -Area of Debridement (cm) - Width 3.5 3 -Total Square (Area) (cm) 12.25 9 -Tunneling No No -Undermining/Tunneling No No -Circular Undermining No No -Wound/Ulcer Outcome Not Healed Not Healed -Ulcer Cleansing Rinsed/ Rinsed/ Irrigated with Irrigated with Saline Saline -Foul Odor after Cleansing No No -Bioengineered Tissue No No -Bleeding Controlled with Pressure Pressure -Offloading Yes Yes -Type of Offloading Total Contact Surgical Shoe Cast (TCC) - Left ($) -Treatment Response Procedure Procedure Tolerated Well Tolerated Well -Debridement - Subq, 1st 20sq cm No Yes Pain Scale: 0-10 Numeric Is Patient Pain Free? Yes Yes WC - Nurse 3 - General Ulcer D/C NN Start: 11/11/20 11:15 Freq: Status: Active Protocol: Activity Type Activity Date Activity User E-Sign Co-Sign Detail Recorded Client Recorded Date Recorded By Document 11/18/20 12:14 [id number] 11/18/20 12:16 JF Document 11/18/20 12:22 DL [id number] 11/18/20 12:25 DL 11/18/20 11/18/20 12:14 12:22 Wound Care Nurse 3 #17 R Lat Ankle -Ulcer Cleansing Rinsed/ Wound Cleanser Irrigated with Saline -Foul Odor after Cleansing No No -Primary Dressing Applied Fibracol Plus Fibracol Plus 4x4 4x4 -Primary Dressing Covered/Secured with Dry Gauze & Dry Gauze & Roll Gauze, Roll Gauze, Secured with Secured with Tape Tape -Fibracol Plus 4x4 1 1 #16 L Plantar med foot -Ulcer Cleansing Rinsed/ Wound Cleanser Irrigated with Saline -Foul Odor after Cleansing No No -Negative Pressure Wound Therapy Continue Continue -Setting (mmHg) 150 150 -Negative Pressure is Continuous Continuous -Other Dressing SKIN PREP [place] -NPWT Application Charge ($) NPWT </= 50 sq NPWT </= 50 sq cm cm Right -Compression Wrap [place] Wrap Left -Compression Wrap [place] Wrap Treatment Response Procedure Tolerated Well Pain Scale: 0-10 Numeric Is Patient Pain Free? Yes Yes WC - Visit Discharge Discharge Condition Stable Stable Ambulatory Status Ambulatory Ambulatory, Wheelchair Transportation Private Auto Private Auto Medication Reconcilliation completed & Yes provided to patient/care provider Clinical Summary of Care Provided Yes Facility Type Home Health Orders Sent Yes Wound debrided: plantar foot Laterality: Left Wound Grade/Stage: warren 2 Type of Debridement: Excisional debridement Anesthesia Used: 4% Lidocaine Solution Depth: in the subcutaneous layer Percentage of wound debrided: 100 Instrument Used: 5mm curette Tissue Removed: Tissue removed includes fibrous, devitalized, biofilm, and slough tissue Severity: Fat Layer Exposed - bone visible Amount of bleeding with debridement: Mild Bleeding Controlled with: Pressure Patient tolerated procedure well - Additional Wound Wound debrided: lateral ankle Laterality: Right Wound Grade/Stage: warren 1 Type of Debridement: Excisional debridement Anesthesia Used: 4% Lidocaine Solution Depth: in the subcutaneous layer Percentage of wound debrided: 100 Instrument Used: 5mm curette Tissue Removed: Tissue removed includes fibrous, devitalized, biofilm, and slough tissue Severity: Fat Layer Exposed Amount of bleeding with debridement: Mild Bleeding Controlled with: Pressure Patient tolerated procedure: Patient tolerated procedure well Assessment/Plan Active Problems (This Medical Record has been edited. Action required.) Ulcer of right ankle (Chronic) Ulcer of left foot with muscle involvement without evidence of necrosis (Chronic) Uncontrolled type II diabetes mellitus (Chronic) Obesity (Chronic) Assessment: Diabetic ulcer of right ankle -, grade 1. Diabetic ulcer plantar left foot- grade 2. Diabetic foot ulcer associated with type 2 diabetes mellitus. Hemoglobin A1c 9.17 Aug 2020. varus deformity bilateral lower extremities. malnutrition suspected. delayed healing Plan: Patient was carefully examined and evaluated in detail today. Subcutaneous excisional debridement of both ulcers done as noted in clinical panel after verbal consent. Procedure was well-tolerated. I recommend changing the dressing daily with Fibracol to the right ankle and left plantar foot. We will return to wound vac until drainage is better controlled. May return to TCC in future. Patient was admitted to hospital 11/14/20 for altered mental status where TCC was removed and culture of wound was obtained from left foot. Culture grew enterobacter cloacae, klebsiella oxytoca, corynebacterium striatum, and enterocccus faecalis. Clinda and Cipro were prescribed 11/18/20 to treat. Discussed importance of properly cleaning foot and protecting area when in shower as some of the bacteria she grew are commonly found in GI tract. It is noted she is already been undergoing a comprehensive wound healing plan and has delayed and nonhealing. She appears to be stabilized from an infection standpoint and has had prior bone biopsies, wound culture, and intervention with infectious disease. Patient to follow-up with Dr. Tello in infectious disease, this has yet to be scheduled. Her lab work was reviewed within the past 3 months. She has suspected adequate vascular perfusion for healing per her recent noninvasive vascular studies 09/01/2020 with triphasic waveforms noted. Patient's hemoglobin A1c was 9.8 in August 2020. Offloading strongly recommended. She presents today ambulating in a CAM boot with offloading insert without crutches. Discussed that since we went back to wound vac that it is important for her to be NWB to LLE. She admits she does not offload well at home and I advised her to take some accountability for this part of her healing plan. Also discussed various offloading methods such as pillows and an offloading boot for her right lateral ankle ulceration. Patient states that she has has tried all of these but she has restless leg syndrome and is not able to use any of these options as they all are kicked away. Discussed using these methods while awake and on couch to help offload the area even if she is unable to maintain this offloading while sleeping. Optimal blood sugar control and increased protein intake also discussed. Discussed that her recent 400 blood glucose is impacting her healing ability. Discussed importance of having her meds with her especially when she is living at her daughters house her meds should be with her there and not at her house where they aren't accessible. All questions were answered and she was advised to call with any further questions or concerns. All signs and symptoms of local and systemic infection were discussed with the patient today. The lateral right ankle ulcer is stable today, the plantar left foot is still extending to the level of bone and larger than last visit. Wound vac applied to left foot. Fibracol dorsal dressing was applied to the right ankle. Patient reports no rubbing noted or areas of increased pressure after application of the total contact cast. Follow up in 1 week. The problems addressed require a low medical decision making level which includes two or more minor problems, a stable chronic illness, or an acute uncomplicated illness or injury. This note was generated with [employer] software. It may contain incorrect words, spelling, and punctuation that were not noted in checking the note before signing.
[2020-11-20 16:21] LABS: Bedside Glucose 87 mg/dL (70-110)
[2020-11-20 16:21] LABS: Bedside Glucose 97 mg/dL (70-110)
[2020-11-25 08:58] VITALS: BP 119/70; PULSE 107; RESP 20; TEMP 36.4; BMI 32.4
--- NOTE | 2020-11-25 09:47 | PN.PCM_ITS ---
(1) Ulcer of right ankle Status: Chronic Qualifiers: Code(s): L97.319 - Non-pressure chronic ulcer of right ankle with unspecified severity (2) Ulcer of left foot with muscle involvement without evidence of necrosis Status: Chronic Code(s): L97.525 - Non-pressure chronic ulcer of other part of left foot with muscle involvement without evidence of necrosis (3) Uncontrolled type II diabetes mellitus Status: Chronic Qualifiers: Code(s): E11.65 - Type 2 diabetes mellitus with hyperglycemia (4) Obesity Status: Chronic Qualifiers: Code(s): E66.9 - Obesity, unspecified Type of Wound Date of Service: 11/25/20 Chief Complaint: Right ankle diabetic ulcer. left foot ulcer History of Wound: Patient is a 55-year-old female who presents to the clinic for follow-up of hospital stay for a left foot chronic ulceration. Patient had MRI on 09/01/2020 showing 1. Large 5.81 x 1.70 cm open skin defect/wound on the lateral plantaraspect of the foot contains fluid and debris and can be a infected. The investing fascia and the plantar aspect of the foot beneath the fourth metatarsal bone encloses the complex fluid collection, and there is no demonstrated intramuscular extension or contact with the overlying bony structures. 2. Mild cortical irregularity is present at the base and plantar and lateral aspect of the fifth metatarsal bone and cuboid which could be related to prior infection or sequela from previous trauma. 3. No active bone marrow edema or cortical erosion is seen to suggest. active osteomyelitis. Patient had an I&D performed in the hospital by Dr. Guadarrama on 09/08/2020. That time patient was noted to have infection to left foot wound with Staphylococcus and Enterobacter which was treated during her stay at the hospital and TCU. Patient has had this ulceration for quite some time. 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 Patient also was noted to have bilateral varus foot deformity. Patient has a noted history of poor compliance of medical recommendations. Patient presents to the office ambulating in an CAM boot with offloaded insert without the assistance of crutches. She states that she cannot do nonweightbearing with the crutches as she is afraid she will fall. Patient was noted to have course of antibiotics while in the hospital in August 2020. Since being discharged from the hospital August 2020 patient has missed several of her follow-up appointments including here at the wound care center as well as with her primary care physician. She states issues with transportation. Patient missed follow-up appointment with infectious disease on November 12, 2020. She states that she has another appointment with them tomorrow 11/26/2020. . Patient has had issues with taking her insulin either with not having her medications on her not being able to obtain it from the pharmacy. Patient has had recent high and low sugar levels. Patient states that she did not go to the hospital or call anyone when she noticed extremely high or low blood sugars. Discussed with the patient the importance of proper wound blood glucose management and if any extreme numbers are seen to take them seriously and go to the emergency department. Patient states that she is still doing her wound VAC and with nursing coming out to assist. She states that they are not washing her foot prior to reapplication. She was admitted to the [facility] 11/14/20 for altered mental status. The TCC was removed at that time and patient was to resume wound vac. Culture was obtained in the hospital growing enterobacter cloacae, klebsiella oxytoca, corynebacterium striatum, and enterococcus faecalis. This wasn't treated while in the hospital. Patient was started on clinda and cipro 11/18/20. Patient also relates that she is largely nonweightbearing by sitting in a chair or on the couch she also uses a wheelchair at home. She does admit to external rotation of the lower extremities which could be a contributing factor to ulcer breakdown of the right lateral ankle. She also admits to having offloading boot that she does not wear at night as she states she kicks it off due to her restless leg syndrome. She relates that she has a in [place] and visits him for months at a time when she has the funds. This has contributed to her noncompliance. Patient also relates having ulceration to the right lateral ankle that began in the mid dle of September 2020 she believes that this started while sleeping with her restless leg syndrome. Patient relates that the wound has worsened beginning of October 2020. Especially after falling in a hole while walking in the yard where her foot and dressing got wet as well as a. Patient had an episode where her wound VAC battery but the VAC was left in place for 10 hours. Patient was made aware that leaving the wound VAC on without the machine on will be detrimental to her healing process. Patient expresses concern over losing her foot but seems reluctant to follow treatment recommendations. She does not seem willing or capable to follow instructions. Progress of Wound: Stable left plantar wound no longer has bone exposed. Stable right ankle wound Subjective: Patient seen and examined resting comfortably. Patient denies any new pedal complaints. Patient denies any nausea, fever, chills, chest pain, shortness of breath, cough, streaking, purulence, vomiting. She relates that she can no longer do nonweightbearing with crutches as she is afraid of falling. She also relates some seal issues with wound VAC and that the home health care is not washing her foot prior to reapplication - Physical Exam Vital Signs Temp Pulse Resp BP 97.6 F L 107 H 20 H 119/70 11/25/20 08:58 11/25/20 08:58 11/25/20 08:58 11/25/20 08:58 General: Alert, Oriented x3 HEENT: Atraumatic Abdomen: Obese Extremities: No clubbing, No cyanosis, Capillary Refill Less than 3 Seconds, No Calf Tenderness, Diminished Peripheral Pulses, Edema Skin: Ulcer/ Wound - Right lateral ankle. No malodor, erythema, purulence, probing to bone, streaking, or other signs of infection. Skin is atrophic and hairless. Granular base with serosanguineous drainage after debridement, - - Left plantar foot ulcer. No malodor, erythema, purulence, probing to bone, streaking, or other signs of infection. Skin is atrophic and hairless. Granular base with serosanguineous drainage after debridement. No longer probing to bone, serous drainage noted, mild hyperkeratotic surrounding tissue Wound Measurements and Assessment WC - Nurse 1 - General Ulcer Measurement Start: 11/11/20 11:15 Freq: Status: Active Protocol: Activity Type Activity Date Activity User E-Sign Co-Sign Detail Recorded Client Recorded Date Recorded By Document 11/25/20 08:58 [email or web address] [id number] 11/25/20 09:07 DL 11/25/20 08:58 Wound Center Nurse 1 [Ulcer Assessment] #17 R Lat Ankle -Current Size (cm) - Length 2.5 -Current Size (cm) - Width 1.9 -Current Size (cm) - Depth 0.2 -Total Square Cm 4.75 -Photo Taken No -Exudate Amt Medium -Exudate Type Serosanguineous -Wound Margin Thickened -Granulation Amt Large (67-100%) -Granulation Quality [place],Red -Necrosis Amt Small (1-33%) -Necrotic Tissue Type Adherent Slough -Structure Exposed N/A -Texture (Natacha-wound Skin Appearance) Scarring -Moisture (Natacha-wound Skin Appearance Dry/Scaly ) -Color (Natacha-wound Skin Appearance) No Abnormality -Temperature (Natacha-wound Skin No Abnormality Appearance) (Pt Warm) -Tenderness on Palpation (Natacha-wound No Skin Appearance) -Ulcer Cleansing Wound Cleanser -Foul Odor after Cleansing No -Anesthetic Used 4% Lidocaine Solution #16 L Plantar med foot -Current Size (cm) - Length 3 -Current Size (cm) - Width 3.4 -Current Size (cm) - Depth 1.3 -Total Square Cm 10.2 -Photo Taken No -Undermining/Tunneling Starts (O' 11 clock) -Undermining/Tunneling Ends (O'clock) 1 -Maximum Distance (cm) 0.5 -Exudate Amt Medium -Exudate Type Serosanguineous -Wound Margin Thickened & Rolled Under -Granulation Amt Large (67-100%) -Granulation Quality Red -Necrosis Amt Small (1-33%) -Necrotic Tissue Type Adherent Slough -Structure Exposed N/A -Texture (Natacha-wound Skin Appearance) Scarring -Moisture (Natacha-wound Skin Appearance Maceration ) -Color (Natacha-wound Skin Appearance) No Abnormality -Temperature (Natacha-wound Skin No Abnormality Appearance) (Pt Warm) -Tenderness on Palpation (Natacha-wound No Skin Appearance) -Ulcer Cleansing Wound Cleanser -Foul Odor after Cleansing Yes, Due to Product Use -Anesthetic Used 4% Lidocaine Solution WC - Nurse 2 - General Ulcer CM Notes Start: 11/11/20 11:15 Freq: Status: Active Protocol: Activity Type Activity Date Activity User E-Sign Co-Sign Detail Recorded Client Recorded Date Recorded By Document 11/25/20 09:23 LISSY [id number] 11/25/20 09:34 LISSY 11/25/20 09:23 Wound Center Nurse 2 [Procedure/Treatment] #17 R Lat Ankle -Time 09:24 -Correct Patient Yes -Correct Side, Site, Position Yes -Correct Procedure Yes -Procedure Performed Yes -Type of Procedure Debridement -Clinical Debridement Subcutaneous -Tissue Removed Subcutaneous -Post Debridement (cm) - Length 2.8 -Post Debridement (cm) - Width 2.1 -Post Debridement (cm) - Depth 0.3 -Total Square (Post) (cm) 5.88 -Area of Debridement (cm) - Length 2.8 -Area of Debridement (cm) - Width 2.1 -Total Square (Area) (cm) 5.88 -Tunneling No -Undermining/Tunneling No -Circular Undermining No -Wound/Ulcer Outcome Not Healed -Ulcer Cleansing Rinsed/ Irrigated with Saline -Foul Odor after Cleansing No -Bioengineered Tissue No -Bleeding Controlled with Pressure -Offloading No -Treatment Response Procedure Tolerated Well -Debridement - Subq, 1st 20sq cm Yes #16 L Plantar med foot -Time 09:24 -Correct Patient Yes -Correct Side, Site, Position Yes -Correct Procedure Yes -Procedure Performed Yes -Type of Procedure Debridement -Clinical Debridement Subcutaneous -Tissue Removed Subcutaneous -Post Debridement (cm) - Length 3.3 -Post Debridement (cm) - Width 3.5 -Post Debridement (cm) - Depth 1.4 -Total Square (Post) (cm) 11.55 -Area of Debridement (cm) - Length 3.3 -Area of Debridement (cm) - Width 3.5 -Total Square (Area) (cm) 11.55 -Tunneling No -Undermining/Tunneling No -Circular Undermining No -Wound/Ulcer Outcome Not Healed -Ulcer Cleansing Rinsed/ Irrigated with Saline -Foul Odor after Cleansing No -Bioengineered Tissue No -Bleeding Controlled with Pressure -Offloading No -Treatment Response Procedure Tolerated Well -Debridement - Subq, 1st 20sq cm No [See Physician Procedure note for Specifics] Pain Scale: 0-10 Numeric [Pain] -Is Patient Pain Free? Yes WC - Nurse 3 - General Ulcer D/C NN Start: 11/11/20 11:15 Freq: Status: Active Protocol: Activity Type Activity Date Activity User E-Sign Co-Sign Detail Recorded Client Recorded Date Recorded By Document 11/25/20 09:40 LISSY [id number] 11/25/20 09:43 LISSY 11/25/20 09:40 Wound Care Nurse 3 [Wound Dressing] #17 R Lat Ankle -Ulcer Cleansing Wound Cleanser -Foul Odor after Cleansing No -Primary Dressing Applied Fibracol Plus 4x4 -Other Dressing michoacano -Primary Dressing Covered/Secured Dry Gauze & with Roll Gauze, Secured with Tape -Fibracol Plus 4x4 1 #16 L Plantar med foot -Ulcer Cleansing Wound Cleanser -Foul Odor after Cleansing No -Negative Pressure Wound Therapy Continue -Setting (mmHg) 150 -Negative Pressure is Continuous -Other Dressing michoacano -NPWT Application Charge ($) NPWT </= 50 sq cm [Post Procedure Tolerated] -Treatment Response Procedure Tolerated Well Pain Scale: 0-10 Numeric [Pain] -Is Patient Pain Free? Yes WC - Visit Discharge [Visit Discharge Information] -Discharge Condition Stable -Ambulatory Status Ambulatory -Transportation hosp trans [Facility Notification] -Facility Type Home Health -Orders Sent Yes Musculoskeletal: No Tenderness to Palpation of Joints or Extremities, Muscle Wasting Neurological: - - Lack of epicritic sensation consistent with neuropathy Psych/Mental Status: Normal Affect, Appropriate Debridement Note Post-Debridement Measurements/Treatment WC - Nurse 2 - General Ulcer CM Notes Start: 11/11/20 11:15 Freq: Status: Active Protocol: Activity Type Activity Date Activity User E-Sign Co-Sign Detail Recorded Client Recorded Date Recorded By Document 11/11/20 11:20 [id number] 11/11/20 11:42 Document 11/18/20 11:54 [id number] 11/18/20 12:06 Document 11/25/20 09:23 [id number] 11/25/20 09:34 11/11/20 11/18/20 11/25/20 11:20 11:54 09:23 Wound Center Nurse 2 #17 R Lat Ankle -Time 11:20 12:00 09:24 -Correct Patient Yes Yes Yes -Correct Side, Site, Position Yes Yes Yes -Correct Procedure Yes Yes Yes -Procedure Performed Yes Yes Yes -Type of Procedure Debridement Debridement Debridement -Clinical Debridement Subcutaneous Subcutaneous Subcutaneous -Tissue Removed Subcutaneous Subcutaneous Subcutaneous -Post Debridement (cm) - Length 2.5 2.7 2.8 -Post Debridement (cm) - Width 2 1.8 2.1 -Post Debridement (cm) - Depth 0.2 0.2 0.3 -Total Square (Post) (cm) 5.0 4.86 5.88 -Area of Debridement (cm) - Length 2.5 2.7 2.8 -Area of Debridement (cm) - Width 2 1.8 2.1 -Total Square (Area) (cm) 5.0 4.86 5.88 -Tunneling No No No -Undermining/Tunneling No No No -Circular Undermining No No No -Wound/Ulcer Outcome Not Healed Not Healed Not Healed -Ulcer Cleansing Rinsed/ Rinsed/ Rinsed/ Irrigated with Irrigated with Irrigated with Saline Saline Saline -Foul Odor after Cleansing No No No -Bioengineered Tissue No No No -Bleeding Controlled with Pressure Pressure Pressure -Offloading Yes No No -Type of Offloading Surgical Shoe -Treatment Response Procedure Procedure Procedure Tolerated Well Tolerated Well Tolerated Well -Debridement - Subq, 1st 20sq cm Yes Yes Yes #16 L Plantar med foot -Time 11:21 12:01 09:24 -Correct Patient Yes Yes Yes -Correct Side, Site, Position Yes Yes Yes -Correct Procedure Yes Yes Yes -Procedure Performed Yes Yes Yes -Type of Procedure Debridement Debridement Debridement -Clinical Debridement Subcutaneous Subcutaneous Subcutaneous -Tissue Removed Subcutaneous Subcutaneous Subcutaneous -Post Debridement (cm) - Length 3.5 3 3.3 -Post Debridement (cm) - Width 3.5 3 3.5 -Post Debridement (cm) - Depth 1.5 1.5 1.4 -Total Square (Post) (cm) 12.25 9 11.55 -Area of Debridement (cm) - Length 3.5 3 3.3 -Area of Debridement (cm) - Width 3.5 3 3.5 -Total Square (Area) (cm) 12.25 9 11.55 -Tunneling No No No -Undermining/Tunneling No No No -Circular Undermining No No No -Wound/Ulcer Outcome Not Healed Not Healed Not Healed -Ulcer Cleansing Rinsed/ Rinsed/ Rinsed/ Irrigated with Irrigated with Irrigated with Saline Saline Saline -Foul Odor after Cleansing No No No -Bioengineered Tissue No No No -Bleeding Controlled with Pressure Pressure Pressure -Offloading Yes Yes No -Type of Offloading Total Contact Surgical Shoe Cast (TCC) - Left ($) -Treatment Response Procedure Procedure Procedure Tolerated Well Tolerated Well Tolerated Well -Debridement - Subq, 1st 20sq cm No No No Pain Scale: 0-10 Numeric Is Patient Pain Free? Yes Yes Yes WC - Nurse 3 - General Ulcer D/C NN Start: 11/11/20 11:15 Freq: Status: Active Protocol: Activity Type Activity Date Activity User E-Sign Co-Sign Detail Recorded Client Recorded Date Recorded By Document 11/18/20 12:14 JF [id number] 11/18/20 12:16 JF Document 11/18/20 12:22 DL [id number] 11/18/20 12:25 DL Document 11/25/20 09:40 LISSY [id number] 11/25/20 09:43 JF 11/18/20 11/18/20 11/25/20 12:14 12:22 09:40 Wound Care Nurse 3 #17 R Lat Ankle -Ulcer Cleansing Rinsed/ Wound Cleanser Wound Cleanser Irrigated with Saline -Foul Odor after Cleansing No No No -Primary Dressing Applied Fibracol Plus Fibracol Plus Fibracol Plus 4x4 4x4 4x4 -Other Dressing michoacano -Primary Dressing Covered/Secured with Dry Gauze & Dry Gauze & Dry Gauze & Roll Gauze, Roll Gauze, Roll Gauze, Secured with Secured with Secured with Tape Tape Tape -Fibracol Plus 4x4 1 1 1 #16 L Plantar med foot -Ulcer Cleansing Rinsed/ Wound Cleanser Wound Cleanser Irrigated with Saline -Foul Odor after Cleansing No No No -Negative Pressure Wound Therapy Continue Continue Continue -Setting (mmHg) 150 150 150 -Negative Pressure is Continuous Continuous Continuous -Other Dressing SKIN PREP michoacano michoacano -NPWT Application Charge ($) NPWT </= 50 sq NPWT </= 50 sq NPWT </= 50 sq cm cm cm Right -Compression Wrap Michoacano Wrap Left -Compression Wrap [place]oacano Wrap Treatment Response Procedure Procedure Tolerated Well Tolerated Well Pain Scale: 0-10 Numeric Is Patient Pain Free? Yes Yes Yes WC - Visit Discharge Discharge Condition Stable Stable Stable Ambulatory Status Ambulatory Ambulatory, Ambulatory Wheelchair Transportation Private Auto Private Auto hosp trans Medication Reconcilliation completed & Yes provided to patient/care provider Clinical Summary of Care Provided Yes Facility Type Home Health Home Health Orders Sent Yes Yes Wound debrided: Lateral ankle Laterality: Right Wound Grade/Stage: Freedman 1 Type of Debridement: Excisional debridement Anesthesia Used: 4% Lidocaine Solution Depth: in the subcutaneous layer Percentage of wound debrided: 100 Instrument Used: 5mm curette Tissue Removed: Tissue removed includes fibrous, devitalized, biofilm, and slough tissue Severity: Fat Layer Exposed Amount of bleeding with debridement: Mild Bleeding Controlled with: Pressure Patient tolerated procedure well - Additional Wound Wound debrided: Plantar foot Laterality: Left Wound Grade/Stage: Freedman 2 Type of Debridement: Excisional debridement Anesthesia Used: 4% Lidocaine Solution Depth: in the subcutaneous layer Percentage of wound debrided: 100 Instrument Used: 5mm curette Tissue Removed: Tissue removed includes fibrous, devitalized, biofilm, and slough tissue Severity: Fat Layer Exposed Amount of bleeding with debridement: Mild Bleeding Controlled with: Pressure Patient tolerated procedure: Patient tolerated procedure well Assessment/Plan Active Problems (This Medical Record has been edited. Action required.) Ulcer of right ankle (Chronic) Ulcer of left foot with muscle involvement without evidence of necrosis (Chronic) Uncontrolled type II diabetes mellitus (Chronic) Obesity (Chronic) Assessment: Diabetic ulcer of right ankle -, grade 1. Diabetic ulcer plantar left foot- grade 2. Diabetic foot ulcer associated with type 2 diabetes mellitus. Hemoglobin A1c 9.17 Aug 2020. varus deformity bilateral lower extremities. malnutrition suspected. delayed healing Plan: Patient was carefully examined and evaluated in detail today. Subcutaneous excisional debridement of both ulcers done as noted in clinical panel after verbal consent. Procedure was well-tolerated. I recommend changing the dressing daily with Fibracol to the right ankle and left plantar foot. We will return to wound vac until drainage is better controlled. May return to TCC in future. Patient was admitted to hospital 11/14/20 for altered mental status where TCC was removed and culture of wound was obtained from left foot. Culture grew enterobacter cloacae, klebsiella oxytoca, corynebacterium striatum, and enterocccus faecalis. Clinda and Cipro were prescribed 11/18/20 to treat. Discussed importance of properly cleaning foot and protecting area when in shower as some of the bacteria she grew are commonly found in GI tract. It is noted she is already been undergoing a comprehensive wound healing plan and has delayed and nonhealing. She appears to be stabilized from an infection standpoint and has had prior bone biopsies, wound culture, and intervention with infectious disease. Patient to follow-up with Dr. Tello in infectious disease. Her lab work was reviewed within the past 3 months. She has suspected adequate vascular perfusion for healing per her recent noninvasive vascular studies 09/01/2020 with triphasic waveforms noted. Patient's hemoglobin A1c was 9.8 in August 2020. Offloading strongly recommended. She presents today ambulating in a CAM boot with offloading insert without crutches. Discussed that since we went back to wound vac that it is important for her to be NWB to LLE. She admits she does not offload well at home and I advised her to take some accountability for this part of her healing plan. Her walking on her foot has impacted the quality of the wound VAC and seal. Also discussed various offloading methods such as pillows and an offloading boot for her right lateral ankle ulceration. Patient states that she has has tried all of these but she has restless leg syndrome and is not able to use any of these options as they all are kicked away. Discussed using these methods while awake and on couch to help offload the area even if she is unable to maintain this offloading while sleeping. Patient relates that she still is not able to go to her home due to not having a working furnace. Patient relates that when she is home she will be able to be in her wheelchair which will remove pressure from the wound. Optimal blood sugar control and increased protein intake also discussed. Discussed importance of having her meds with her especially when she is living at her daughters house her meds should be with her there and not at her house where they aren't accessible. All questions were answered and she was advised to call with any further questions or concerns. All signs and symptoms of local and systemic infection were discussed with the patient today. The lateral right ankle ulcer is stable today, the plantar left foot is no longer extending to the level of bone and larger than last visit. Wound vac applied to left foot. We will consider returning to total contact cast once infection and drainage better controlled. Fibracol dorsal dressing was applied to the right ankle. Application for Apligraf graft to right ankle wound applied. Patient is also trying to get her in from [place] to the [facility] and requested her medical records be sent to her plant electrician. Discussed with the patient that I would be happy to do so but will require legal release of her records in order to send him. Patient is to obtain & legal release of her records and return the form to us and once this is accomplished we will fax medical records to her plant electrician. Follow up in 1 week. This note was generated with [employer] software. It may contain incorrect words, spelling, and punctuation that were not noted in checking the note before signing.
[2020-12-02 09:40] LABS: Bedside Glucose 227 mg/dL (70-110)
[2020-12-02 09:47] VITALS: BP 117/63; PULSE 93; RESP 16; TEMP 36.1; BMI 32.4
--- NOTE | 2020-12-02 10:36 | PN.PCM_ITS ---
(1) Ulcer of right ankle Status: Chronic Qualifiers: Non-pressure ulcer stage: with fat layer exposed Qualified Code(s): L97.312 - Non-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 Code(s): L97.319 - Non-pressure chronic ulcer of right ankle with unspecified severity (2) Ulcer of left foot with muscle involvement without evidence of necrosis Status: Chronic Code(s): L97.525 - Non-pressure chronic ulcer of other part of left foot with muscle involvement without evidence of necrosis (3) Uncontrolled type II diabetes mellitus Status: Chronic Qualifiers: Code(s): E11.65 - Type 2 diabetes mellitus with hyperglycemia (4) Obesity Status: Chronic Qualifiers: Code(s): E66.9 - Obesity, unspecified Type of Wound Date of Service: 12/02/20 Chief Complaint: Right ankle diabetic ulcer. left foot ulcer History of Wound: Patient is a 55-year-old female who presents to the clinic for follow-up of hospital stay for a left foot chronic ulceration. Patient had MRI on 09/01/2020 showing 1. Large 5.81 x 1.70 cm open skin defect/wound on the lateral plantaraspect of the foot contains fluid and debris and can be a infected. The investing fascia and the plantar aspect of the foot beneath the fourth metatarsal bone encloses the complex fluid collection, and there is no demonstrated intramuscular extension or contact with the overlying bony structures. 2. Mild cortical irregularity is present at the base and plantar and lateral aspect of the fifth metatarsal bone and cuboid which could be related to prior infection or sequela from previous trauma. 3. No active bone marrow edema or cortical erosion is seen to suggest. active osteomyelitis. Patient had an I&D performed in the hospital by Dr. Guadarrama on 09/08/2020. That time patient was noted to have infection to left foot wound with Staphylococcus and Enterobacter which was treated during her stay at the hospital and TCU. Patient has had this ulceration for quite some time. 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 Patient also was noted to have bilateral varus foot deformity. Patient has a noted history of poor compliance of medical recommendations. Patient presents to the office ambulating in an CAM boot with offloaded insert without the assistance of crutches. She states that she cannot do nonweightbearing with the crutches as she is afraid she will fall. Patient had [facility] PT that has since finished and patient states she never felt stable. Patient was noted to have course of antibiotics while in the hospital in August 2020. Since being discharged from the hospital August 2020 patient has missed several of her follow-up appointments including here at the wound care center as well as with her primary care physician. She states issues with transportation. Patient missed follow-up appointment with infectious disease on November 12, 2020. She states that she has another appointment with them 11/26/2020. She states he didn't do anything. . Patient has had issues with taking her insulin either with not having her medications on her not being able to obtain it from the pharmacy. Patient has had recent high and low sugar levels. Patient states that she did not go to the hospital or call anyone when she noticed extremely high or low blood sugars. Discussed with the patient the importance of proper wound blood glucose management and if any extreme numbers are seen to take them seriously and go to the emergency department. Patient states that she is still doing her wound VAC and with nursing coming out to assist. She states that they are not washing her foot prior to reapplication. She was admitted to the hospital 11/14/20 for altered mental status. She was found to have had 2 mini strokes per patient. The TCC was removed at that time and patient was to resume wound vac. Culture was obtained in the hospital growing enterobacter cloacae, klebsiella oxytoca, corynebacterium striatum, and enterococcus faecalis. This wasn't treated while in the hospital. Dr Tello was contacted and he started her on linezolid and omnicef 12/02/20. Patient also relates that she is largely nonweightbearing by sitting in a chair or on the couch she also uses a wheelchair at home. She states she doesn't have a water heater so is staying at her daughter's house where she can't use her wheelchair and is expected to help with her grandchildren. She does admit to external rotation of the lower extremities which could be a contributing factor to ulcer breakdown of the right lateral ankle. She also admits to having offloading boot that she does not wear at night as she states she kicks it off due to her restless leg syndrome. She relates that she has a in [place] and visits him for months at a time when she has the funds. This has contributed to her noncompliance. Patient also relates having ulceration to the right lateral ankle that began in the middle of September 2020 she believes that this started while sleeping with her restless leg syndrome. Patient relates that the wound has worsened beginning of October 2020. Especially after falling in a hole while walking in the yard where her foot and dressing got wet. Patient had an episode where her wound VAC battery but the VAC was left in place for 10 hours. Patient was made aware that leaving the wound VAC on without the machine on will be detrimental to her healing process. Patient expresses concern over losing her foot but seems reluctant to follow treatment recommendations. She does not seem willing or capable to follow instructions. Progress of Wound: Stable left plantar wound with malodor noted. Stable right ankle wound Subjective: Patient seen and examined resting comfortably. Patient denies any new pedal complaints. Patient denies any nausea, fever, chills, chest pain, shortness of breath, cough, streaking, purulence, vomiting. - Physical Exam Vital Signs Temp Pulse Resp BP 97 F L 93 16 117/63 12/02/20 09:47 12/02/20 09:47 12/02/20 09:47 12/02/20 09:47 General: Alert, Oriented x3 HEENT: Atraumatic Abdomen: Obese Extremities: No clubbing, No cyanosis, Capillary Refill Less than 3 Seconds, No Calf Tenderness, Diminished Peripheral Pulses, Edema - mild, Tenderness - ulcer left foot Skin: Ulcer/ Wound - left plantar lateral foot. malodor present, no purulent drainage, no surrounding erythema and edema to lower extremity, probes to bone, overlying muscle exposed, skin is atrophic and hairless, surrounding callus tissue, - - right lateral ankle. No malodor, erythema, purulence, probing to bone, streaking, or other signs of infection. Skin is atrophic and hairless. Granular base with serosanguineous drainage after debridement Wound Measurements and Assessment WC - Nurse 1 - General Ulcer Measurement Start: 11/11/20 11:15 Freq: Status: Active Protocol: Activity Type Activity Date Activity User E-Sign Co-Sign Detail Recorded Client Recorded Date Recorded By Document 12/02/20 09:47 DL [id number] 12/02/20 09:53 DL 12/02/20 09:47 Wound Center Nurse 1 [Ulcer Assessment] #17 R Lat Ankle -Current Size (cm) - Length 2 -Current Size (cm) - Width 2 -Current Size (cm) - Depth 0.2 -Total Square Cm 4 -Photo Taken No -Exudate Amt Medium -Exudate Type Serosanguineous -Wound Margin Thickened -Granulation Amt Medium (34-66%) -Granulation Quality [place] -Necrosis Amt Medium (34-66%) -Necrotic Tissue Type Adherent Slough -Structure Exposed N/A -Texture (Natacha-wound Skin Appearance) Scarring -Moisture (Natacha-wound Skin Appearance Maceration ) -Color (Natacha-wound Skin Appearance) No Abnormality -Temperature (Natacha-wound Skin No Abnormality Appearance) (Pt Warm) -Tenderness on Palpation (Natacha-wound No Skin Appearance) -Ulcer Cleansing Wound Cleanser -Foul Odor after Cleansing No -Anesthetic Used 4% Lidocaine Solution #16 L Plantar med foot -Current Size (cm) - Length 3.5 -Current Size (cm) - Width 4 -Current Size (cm) - Depth 1 -Total Square Cm 14.0 -Photo Taken No -Exudate Amt Medium -Exudate Type Serosanguineous -Wound Margin Thickened -Granulation Amt Medium (34-66%) -Granulation Quality Red -Necrosis Amt Medium (34-66%) -Necrotic Tissue Type Adherent Slough -Structure Exposed N/A -Texture (Natacha-wound Skin Appearance) Callus,Scarring -Moisture (Natacha-wound Skin Appearance Maceration ) -Color (Natacha-wound Skin Appearance) No Abnormality -Temperature (Natacha-wound Skin No Abnormality Appearance) (Pt Warm) -Tenderness on Palpation (Natacha-wound No Skin Appearance) -Ulcer Cleansing Wound Cleanser -Foul Odor after Cleansing No -Anesthetic Used 4% Lidocaine Solution [Edema Assessment] -Left Calf (cm) 34 -Left Ankle (cm) 19.5 Musculoskeletal: Muscle Wasting, Tenderness - left foot ulcer Neurological: - - lack of epicritic sensation consistent with neuropathy Psych/Mental Status: Normal Affect, Appropriate Debridement Note Post-Debridement Measurements/Treatment WC - Nurse 2 - General Ulcer CM Notes Start: 11/11/20 11:15 Freq: Status: Active Protocol: Activity Type Activity Date Activity User E-Sign Co-Sign Detail Recorded Client Recorded Date Recorded By Document 11/11/20 11:20 LISSY [id number] 11/11/20 11:42 LISSY Document 11/18/20 11:54 [id number] 11/18/20 12:06 Document 11/25/20 09:23 [id number] 11/25/20 09:34 11/11/20 11/18/20 11/25/20 11:20 11:54 09:23 Wound Center Nurse 2 #17 R Lat Ankle -Time 11:20 12:00 09:24 -Correct Patient Yes Yes Yes -Correct Side, Site, Position Yes Yes Yes -Correct Procedure Yes Yes Yes -Procedure Performed Yes Yes Yes -Type of Procedure Debridement Debridement Debridement -Clinical Debridement Subcutaneous Subcutaneous Subcutaneous -Tissue Removed Subcutaneous Subcutaneous Subcutaneous -Post Debridement (cm) - Length 2.5 2.7 2.8 -Post Debridement (cm) - Width 2 1.8 2.1 -Post Debridement (cm) - Depth 0.2 0.2 0.3 -Total Square (Post) (cm) 5.0 4.86 5.88 -Area of Debridement (cm) - Length 2.5 2.7 2.8 -Area of Debridement (cm) - Width 2 1.8 2.1 -Total Square (Area) (cm) 5.0 4.86 5.88 -Tunneling No No No -Undermining/Tunneling No No No -Circular Undermining No No No -Wound/Ulcer Outcome Not Healed Not Healed Not Healed -Ulcer Cleansing Rinsed/ Rinsed/ Rinsed/ Irrigated with Irrigated with Irrigated with Saline Saline Saline -Foul Odor after Cleansing No No No -Bioengineered Tissue No No No -Bleeding Controlled with Pressure Pressure Pressure -Offloading Yes No No -Type of Offloading Surgical Shoe -Treatment Response Procedure Procedure Procedure Tolerated Well Tolerated Well Tolerated Well -Debridement - Subq, 1st 20sq cm Yes Yes Yes #16 L Plantar med foot -Time 11: 12:01 09:24 -Correct Patient Yes Yes Yes -Correct Side, Site, Position Yes Yes Yes -Correct Procedure Yes Yes Yes -Procedure Performed Yes Yes Yes -Type of Procedure Debridement Debridement Debridement -Clinical Debridement Subcutaneous Subcutaneous Subcutaneous -Tissue Removed Subcutaneous Subcutaneous Subcutaneous -Post Debridement (cm) - Length 3.5 3 3.3 -Post Debridement (cm) - Width 3.5 3 3.5 -Post Debridement (cm) - Depth 1.5 1.5 1.4 -Total Square (Post) (cm) 12.25 9 11.55 -Area of Debridement (cm) - Length 3.5 3 3.3 -Area of Debridement (cm) - Width 3.5 3 3.5 -Total Square (Area) (cm) 12.25 9 11.55 -Tunneling No No No -Undermining/Tunneling No No No -Circular Undermining No No No -Wound/Ulcer Outcome Not Healed Not Healed Not Healed -Ulcer Cleansing Rinsed/ Rinsed/ Rinsed/ Irrigated with Irrigated with Irrigated with Saline Saline Saline -Foul Odor after Cleansing No No No -Bioengineered Tissue No No No -Bleeding Controlled with Pressure Pressure Pressure -Offloading Yes Yes No -Type of Offloading Total Contact Surgical Shoe Cast (TCC) - Left ($) -Treatment Response Procedure Procedure Procedure Tolerated Well Tolerated Well Tolerated Well -Debridement - Subq, 1st 20sq cm No No No Pain Scale: 0-10 Numeric Is Patient Pain Free? Yes Yes Yes WC - Nurse 3 - General Ulcer D/C NN Start: 11/11/20 11:15 Freq: Status: Active Protocol: Activity Type Activity Date Activity User E-Sign Co-Sign Detail Recorded Client Recorded Date Recorded By Document 11/18/20 12:14 [id number] 11/18/20 12:16 JF Document 11/18/20 12:22 DL [id number] 11/18/20 12:25 DL Document 11/25/20 09:40 [id number] 11/25/20 09:43 JF 11/18/20 11/18/20 11/25/20 12:14 12:22 09:40 Wound Care Nurse 3 #17 R Lat Ankle -Ulcer Cleansing Rinsed/ Wound Cleanser Wound Cleanser Irrigated with Saline -Foul Odor after Cleansing No No No -Primary Dressing Applied Fibracol Plus Fibracol Plus Fibracol Plus 4x4 4x4 4x4 -Other Dressing [place] -Primary Dressing Covered/Secured with Dry Gauze & Dry Gauze & Dry Gauze & Roll Gauze, Roll Gauze, Roll Gauze, Secured with Secured with Secured with Tape Tape Tape -Fibracol Plus 4x4 1 1 1 #16 L Plantar med foot -Ulcer Cleansing Rinsed/ Wound Cleanser Wound Cleanser Irrigated with Saline -Foul Odor after Cleansing No No No -Negative Pressure Wound Therapy Continue Continue Continue -Setting (mmHg) 150 150 150 -Negative Pressure is Continuous Continuous Continuous -Other Dressing SKIN PREP [place] -NPWT Application Charge ($) NPWT </= 50 sq NPWT </= 50 sq NPWT </= 50 sq cm cm cm Right -Compression Wrap [place] Wrap Left -Compression Wrap [place] Wrap Treatment Response Procedure Procedure Tolerated Well Tolerated Well Pain Scale: 0-10 Numeric Is Patient Pain Free? Yes Yes Yes WC - Visit Discharge Discharge Condition Stable Stable Stable Ambulatory Status Ambulatory Ambulatory, Ambulatory Wheelchair Transportation Private Auto Private Auto hosp trans Medication Reconcilliation completed & Yes provided to patient/care provider Clinical Summary of Care Provided Yes Facility Type Home Health Home Health Orders Sent Yes Yes Wound debrided: plantar foot Laterality: Left Wound Grade/Stage: warren 2 Type of Debridement: Excisional debridement Anesthesia Used: 4% Lidocaine Solution Depth: to muscle Percentage of wound debrided: 100 Tissue Removed: Tissue removed includes fibrous, devitalized, biofilm, and slough tissue Severity: Necrosis of Muscle Amount of bleeding with debridement: Mild Bleeding Controlled with: Pressure Patient tolerated procedure well - Additional Wound Wound debrided: w Laterality: Right Wound Grade/Stage: warren 1 Type of Debridement: Excisional debridement Anesthesia Used: 4% Lidocaine Solution Depth: in the subcutaneous layer Percentage of wound debrided: 100 Instrument Used: 3mm curette Tissue Removed: Tissue removed includes fibrous, devitalized, biofilm, and slough tissue Severity: Fat Layer Exposed Amount of bleeding with debridement: Mild Bleeding Controlled with: Pressure Patient tolerated procedure: Patient tolerated procedure well Assessment/Plan Active Problems (This Medical Record has been edited. Action required.) Ulcer of right ankle (Chronic) Ulcer of left foot with muscle involvement without evidence of necrosis (Chronic) Uncontrolled type II diabetes mellitus (Chronic) Obesity (Chronic) Assessment: Diabetic ulcer of right ankle -, grade 1. Diabetic ulcer plantar left foot- grade 2. Diabetic foot ulcer associated with type 2 diabetes mellitus. Hemoglobin A1c 9.17 Aug 2020. varus deformity bilateral lower extremities. malnutrition suspected. delayed healing. obesity Plan: Patient was carefully examined and evaluated in detail today. debridement of both ulcers done as noted in clinical panel after verbal consent. Procedure was well-tolerated. Patient has demonstrated inability to be nonweight bearing to left foot with worsening of wound noted today. We will try TCC application again today to left foot. Continue daily dressing changes to right foot. Patient was admitted to hospital 11/14/20 for altered mental status where TCC was removed and culture of wound was obtained from left foot. Culture grew enterobacter cloacae, klebsiella oxytoca, corynebacterium striatum, and enterocccus faecalis. Dr Tello was contacted about cultures and he prescribed omnicef and lineozilid 12/02/20. Discussed importance of properly cleaning foot and protecting area when in shower as some of the bacteria she grew are commonly found in GI tract. It is noted she is already been undergoing a comprehensive wound healing plan and has delayed and nonhealing. She has had prior bone biopsies, wound culture, and intervention with infectious disease. Her lab work was reviewed within the past 3 months. She has suspected adequate vascular perfusion for healing per her recent noninvasive vascular studies 09/01/2020 with triphasic waveforms noted. Patient's hemoglobin A1c was 9.8 in August 2020. Offloading strongly recommended. She presents today ambulating in a CAM boot with offloading insert without crutches. Patient relates she is living with her daughter and is expected to do dishes and help around the house as well as with her grandchildren. Reiterated the importance of non weight bearing. Discussed she could lose her foot if an infection sets in. She admits she does not offload well at home and I advised her to take some accountability for this part of her healing plan. Her walking on her foot has impacted the quality of the wound VAC and seal. Also discussed various offloading methods such as pillows and an offloading boot for her right lateral ankle ulceration. Patient states that she has has tried all of these but she has restless leg syndrome and is not able to use any of these options as they all are kicked away. Discussed using these methods while awake and on couch to help offload the area even if she is unable to maintain this offloading while sleeping. Patient relates that she still is not able to go to her home due to not having a working furnace. Patient relates that when she is home she will be able to be in her wheelchair which will remove pressure from the wound. Optimal blood sugar control and increased protein intake also discussed. Discussed importance of having her meds with her especially when she is living at her daughters house her meds should be with her there and not at her house where they aren't accessible. All questions were answered and she was advised to call with any further questions or concerns. All signs and symptoms of local and systemic infection were discussed with the patient today. The lateral right ankle ulcer is stable today, the plantar left foot is malodorous and is again probing to bone with muscle exposed. We will again try the TCC as patient is not able to be compliant with NWB. Fibracol dorsal dressing was applied to the right ankle. Application for Apligraf graft to right ankle wound was applied. Patient provided verbal consent for a left total contact cast. This was applied in a well padded neutral position according standard protocol. He tolerated this well. He was also advised to keep this clean, dry, and intact until follow-up next week. Patient is also trying to get her in from [place] to the [facility] and requested her medical records be sent to her correctional corporal. Discussed with the patient that I would be happy to do so but will require legal release of her records in order to send him. Patient is to obtain & legal release of her records and return the form to us and once this is accomplished we will fax medical records to her correctional corporal. Follow up in 1 week. This note was generated with [employer] dictation software. It may contain incorrect words, spelling, and punctuation that were not noted in checking the note before signing.
--- NOTE | 2020-12-02 16:26 | WC ---
Received a call from Dr Cuevas requesting a call to patient to inform her about a new ATB being electronically by Dr Tello to her pharmacy. Left a message with patient's daughter and she verbalized understanding.
[2020-12-05 12:38] VITALS: BP 179/91; PULSE 100; RESP 18; TEMP 36.6; BMI 32.4
--- NOTE | 2020-12-05 15:19 | PN.PCM_ITS ---
(1) Obesity Status: Chronic Qualifiers: Obesity type: due to excess calories Obesity classification: adult class 1 (BMI 30 - 34.9) Serious obesity comorbidity presence: with serious comorbidity Body mass index: BMI 32.0-32.9 Qualified Code(s): E66.09 - Other obesity due to excess calories; Z68.32 - Body mass index [BMI] 32.0-32.9, adult Code(s): E66.9 - Obesity, unspecified (2) Ulcer of left foot with muscle involvement without evidence of necrosis Status: Chronic Code(s): L97.525 - Non-pressure chronic ulcer of other part of left foot with muscle involvement without evidence of necrosis (3) Ulcer of right ankle Status: Chronic Qualifiers: Non-pressure ulcer stage: with fat layer exposed Qualified Code(s): L97.312 - Non-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 Code(s): L97.319 - Non-pressure chronic ulcer of right ankle with unspecified severity (4) Uncontrolled type II diabetes mellitus Status: Chronic Qualifiers: Glycemic state: with hyperglycemia Code(s): E11.65 - Type 2 diabetes mellitus with hyperglycemia (5) Foot ulcer, left Status: Chronic Qualifiers: Non-pressure ulcer stage: with bone involvement without evidence of necrosis Qualified Code(s): L97.526 - Non-pressure chronic ulcer of other part of left foot with bone involvement without evidence of necrosis Code(s): L97.529 - Non-pressure chronic ulcer of other part of left foot with unspecified severity Type of Wound Date of Service: 12/05/20 Chief Complaint: Right ankle diabetic ulcer. left foot ulcer History of Wound: Patient is a 55-year-old female who presents to the clinic for follow-up of hospital stay for a left foot chronic ulceration. Patient had MRI on 09/01/2020 showing 1. Large 5.81 x 1.70 cm open skin defect/wound on the lateral plantaraspect of the foot contains fluid and debris and can be a infected. The investing fascia and the plantar aspect of the foot beneath the fourth metatarsal bone encloses the complex fluid collection, and there is no demonstrated intramuscular extension or contact with the overlying bony structures. 2. Mild cortical irregularity is present at the base and plantar and lateral aspect of the fifth metatarsal bone and cuboid which could be related to prior infection or sequela from previous trauma. 3. No active bone marrow edema or cortical erosion is seen to suggest. active osteomyelitis. Patient had an I&D performed in the hospital by Dr. Guadarrama on 09/08/2020. That time patient was noted to have infection to left foot wound with Staphylococcus and Enterobacter which was treated during her stay at the hospital and TCU. Patient has had this ulceration for quite some time. 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 Patient also was noted to have bilateral varus foot deformity. Patient has a noted history of poor compliance of medical recommendations. Patient presents to the office ambulating in an CAM boot with offloaded insert without the assistance of crutches. She states that she cannot do nonweightbearing with the crutches as she is afraid she will fall. Patient had [facility] PT that has since finished and patient states she never felt stable. Patient was noted to have course of antibiotics while in the hospital in August 2020. Since being discharged from the hospital August 2020 patient has missed several of her follow-up appointments including here at the wound care center as well as with her primary care physician. She states issues with transportation. Patient missed follow-up appointment with infectious disease on November 12, 2020. She states that she has another appointment with them 11/26/2020. She states he didn't do anything. . Patient has had issues with taking her insulin either with not having her medications on her not being able to obtain it from the pharmacy. Patient has had recent high and low sugar levels. Patient states that she did not go to the hospital or call anyone when she noticed extremely high or low blood sugars. Discussed with the patient the importance of proper wound blood glucose ma nagement and if any extreme numbers are seen to take them seriously and go to the emergency department. Patient states that she is still doing her wound VAC and with nursing coming out to assist. She states that they are not washing her foot prior to reapplication. She was admitted to the hospital 11/14/20 for altered mental status. She was found to have had 2 mini strokes per patient. The TCC was removed at that time and patient was to resume wound vac. Culture was obtained in the hospital growing enterobacter cloacae, klebsiella oxytoca, corynebacterium striatum, and enterococcus faecalis. This wasn't treated while in the hospital. Dr Tello was contacted and he started her on linezolid and omnicef 12/02/20. Patient also relates that she is largely nonweightbearing by sitting in a chair or on the couch she also uses a wheelchair at home. She states she doesn't have a water heater so is staying at her daughter's house where she can't use her wheelchair and is expected to help with her grandchildren. She does admit to external rotation of the lower extremities which could be a contributing factor to ulcer breakdown of the right lateral ankle. She also admits to having offloading boot that she does not wear at night as she states she kicks it off due to her restless leg syndrome. She relates that she has a in [place] and visits him for months at a time when she has the funds. This has contributed to her noncompliance. Patient also relates having ulceration to the right lateral ankle that began in the middle of September 2020 she believes that this started while sleeping with her restless leg syndrome. Patient relates that the wound has worsened beginning of October 2020. Especially after falling in a hole while walking in the yard where her foot and dressing got wet. Patient had an episode where her wound VAC battery but the VAC was left in place for 10 hours. Patient was made aware that leaving the wound VAC on without the machine on will be detrimental to her healing process. Patient expresses concern over losing her foot but seems reluctant to follow treatment recommendations. She does not seem willing or capable to follow instructions. Progress of Wound: Stable left plantar wound with no odor noted. Stable right ankle wound. Patient is seen today as a courtesy visit for Dr. Cuevas for removal and placement of TCC for above wounds/ulcers. She tolerated TCC that was applied on 12/02/2020 with improvement in her ulcers/wounds. - Physical Exam Vital Signs Temp Pulse Resp BP 98 F 100 18 179/91 H 12/05/20 12:38 12/05/20 12:38 12/05/20 12:38 12/05/20 12:38 General: Alert, Oriented x3, Cooperative, No apparent distress HEENT: Atraumatic, Normocephalic Oral: Moist Mucosa Abdomen: Obese Extremities: No edema Skin: Ulcer/ Wound Wound Measurements and Assessment WC - Nurse 1 - General Ulcer Measurement Start: 11/11/20 11:15 Freq: Status: Active Protocol: Activity Type Activity Date Activity User E-Sign Co-Sign Detail Recorded Client Recorded Date Recorded By Document 12/05/20 12:38 RB [id number] 12/05/20 12:42 RB 12/05/20 12:38 Wound Center Nurse 1 [Ulcer Assessment] #17 R Lat Ankle -Combined with other wound No -Tunneling No -Undermining/Tunneling No -Circular Undermining No -Exudate Amt Small -Exudate Type Serosanguineous -Wound Margin Thickened & Rolled Under -Granulation Amt Large (67-100%) -Granulation Quality [place] -Slough/Fibrin Yes -Necrosis Amt Small (1-33%) -Necrotic Tissue Type Adherent Slough -Structure Exposed N/A -Texture (Natacha-wound Skin Appearance) Assessed, Scarring -Moisture (Natacha-wound Skin Appearance Assessed ) -Color (Natacha-wound Skin Appearance) Assessed -Temperature (Natacha-wound Skin No Abnormality Appearance) (Pt Warm) -Tenderness on Palpation (Natacha-wound No Skin Appearance) -Ulcer Cleansing Wound Cleanser -Foul Odor after Cleansing No #16 L Plantar med foot -Current Size (cm) - Length 3.4 -Current Size (cm) - Width 3.8 -Current Size (cm) - Depth 1.3 -Total Square Cm 12.92 -Tunneling No -Undermining/Tunneling No -Circular Undermining No -Exudate Amt Medium -Exudate Type Serosanguineous -Wound Margin Flat & Intact -Granulation Amt Medium (34-66%) -Granulation Quality [place] -Slough/Fibrin Yes -Necrosis Amt Small (1-33%) -Necrotic Tissue Type Adherent Slough -Structure Exposed N/A -Texture (Natacha-wound Skin Appearance) Assessed, Excoriation -Moisture (Natacha-wound Skin Appearance Assessed ) -Color (Natacha-wound Skin Appearance) Assessed -Temperature (Natacha-wound Skin No Abnormality Appearance) (Pt Warm) -Tenderness on Palpation (Natacha-wound No Skin Appearance) -Ulcer Cleansing Wound Cleanser -Foul Odor after Cleansing No WC - Nurse 2 - General Ulcer CM Notes Start: 11/11/20 11:15 Freq: Status: Active Protocol: Activity Type Activity Date Activity User E-Sign Co-Sign Detail Recorded Client Recorded Date Recorded By Document 12/05/20 12:42 MW [id number] 12/05/20 12:45 MW 12/05/20 12:42 Wound Center Nurse 2 [Procedure/Treatment] #17 R Lat Ankle -Time 12:43 -Correct Patient Yes -Correct Side, Site, Position Yes -Correct Procedure Yes -Procedure Performed No -Type of Offloading Total Contact Cast (TCC) - Left ($) [See Physician Procedure note for Specifics] WC - Nurse 3 - General Ulcer D/C NN Start: 11/11/20 11:15 Freq: Status: Active Protocol: Activity Type Activity Date Activity User E-Sign Co-Sign Detail Recorded Client Recorded Date Recorded By Document 12/05/20 12:38 RB [id number] 12/05/20 12:42 RB 12/05/20 12:38 Vital Signs [Temperature Protocol: VS] -Temperature (97.8 F-99.1 F) 98 F -Temperature Source Oral [Pulse] -Pulse Rate (60-100) 100 -Pulse Location Monitor [Respirations] -Respiratory Rate (12-18) 18 -Respiratory rate source Observation [Blood Pressure] -Blood Pressure (90/60-120/80) 179/91 H -Blood Pressure Mean (mm Hg) 120 -Source Monitor -Position Semi-Fowlers -Blood Pressure Location Left Arm Pain Scale: 0-10 Numeric [Pain] -Is Patient Pain Free? Yes Wound Care Nurse 3 [Wound Dressing] #17 R Lat Ankle -Ulcer Cleansing Wound Cleanser -Primary Dressing Applied Fibracol Plus 4x4 -Primary Dressing Covered/Secured Dry Gauze,Dry with Gauze & Roll Gauze,Secured with Tape -Fibracol Plus 4x4 1 #16 L Plantar med foot -Ulcer Cleansing Wound Cleanser -Primary Dressing Applied Aquacel AG 4x4 -Other Dressing primary layer of TCC applied -Aquacel AG 4x4 1 [Post Procedure Tolerated] -Treatment Response Procedure Tolerated Well WC - Visit Discharge [Visit Discharge Information] -Discharge Condition Stable -Ambulatory Status Ambulatory, Walker -Transportation Private Auto -Medication Reconcilliation completed No & provided to patient/care provider -Clinical Summary of Care Provided Yes Psych/Mental Status: Normal Affect, Appropriate Debridement Note Post-Debridement Measurements/Treatment WC - Nurse 2 - General Ulcer CM Notes Start: 11/11/20 11:15 Freq: Status: Active Protocol: Activity Type Activity Date Activity User E-Sign Co-Sign Detail Recorded Client Recorded Date Recorded By Document 11/11/20 11:20 JF [id number] 11/11/20 11:42 JF Document 11/18/20 11:54 JF [id number] 11/18/20 12:06 JF Document 11/25/20 09:23 JF [id number] 11/25/20 09:34 JF Document 12/02/20 10:28 JF [id number] 12/02/20 10:41 JF Document 12/05/20 12:42 MW [id number] 12/05/20 12:45 MW 11/11/20 11/18/20 11/25/20 11:20 11:54 09:23 Wound Center Nurse 2 #17 R Lat Ankle -Time 11:20 12:00 09:24 -Correct Patient Yes Yes Yes -Correct Side, Site, Position Yes Yes Yes -Correct Procedure Yes Yes Yes -Procedure Performed Yes Yes Yes -Type of Procedure Debridement Debridement Debridement -Clinical Debridement Subcutaneous Subcutaneous Subcutaneous -Tissue Removed Subcutaneous Subcutaneous Subcutaneous -Post Debridement (cm) - Length 2.5 2.7 2.8 -Post Debridement (cm) - Width 2 1.8 2.1 -Post Debridement (cm) - Depth 0.2 0.2 0.3 -Total Square (Post) (cm) 5.0 4.86 5.88 -Area of Debridement (cm) - Length 2.5 2.7 2.8 -Area of Debridement (cm) - Width 2 1.8 2.1 -Total Square (Area) (cm) 5.0 4.86 5.88 -Tunneling No No No -Undermining/Tunneling No No No -Circular Undermining No No No -Wound/Ulcer Outcome Not Healed Not Healed Not Healed -Ulcer Cleansing Rinsed/ Rinsed/ Rinsed/ Irrigated with Irrigated with Irrigated with Saline Saline Saline -Foul Odor after Cleansing No No No -Bioengineered Tissue No No No -Bleeding Controlled with Pressure Pressure Pressure -Offloading Yes No No -Type of Offloading Surgical Shoe -Treatment Response Procedure Procedure Procedure Tolerated Well Tolerated Well Tolerated Well -Debridement - Subq, 1st 20sq cm Yes Yes Yes #16 L Plantar med foot -Time 11:21 12:01 09:24 -Correct Patient Yes Yes Yes -Correct Side, Site, Position Yes Yes Yes -Correct Procedure Yes Yes Yes -Procedure Performed Yes Yes Yes -Type of Procedure Debridement Debridement Debridement -Clinical Debridement Subcutaneous Subcutaneous Subcutaneous -Tissue Removed Subcutaneous Subcutaneous Subcutaneous -Post Debridement (cm) - Length 3.5 3 3.3 -Post Debridement (cm) - Width 3.5 3 3.5 -Post Debridement (cm) - Depth 1.5 1.5 1.4 -Total Square (Post) (cm) 12.25 9 11.55 -Area of Debridement (cm) - Length 3.5 3 3.3 -Area of Debridement (cm) - Width 3.5 3 3.5 -Total Square (Area) (cm) 12.25 9 11.55 -Tunneling No No No -Undermining/Tunneling No No No -Circular Undermining No No No -Wound/Ulcer Outcome Not Healed Not Healed Not Healed -Ulcer Cleansing Rinsed/ Rinsed/ Rinsed/ Irrigated with Irrigated with Irrigated with Saline Saline Saline -Foul Odor after Cleansing No No No -Bioengineered Tissue No No No -Bleeding Controlled with Pressure Pressure Pressure -Offloading Yes Yes No -Type of Offloading Total Contact Surgical Shoe Cast (TCC) - Left ($) -Treatment Response Procedure Procedure Procedure Tolerated Well Tolerated Well Tolerated Well -Debridement - Subq, 1st 20sq cm No No No -Debridement - Muscle / Fascia, 1st 20sq cm Pain Scale: 0-10 Numeric Is Patient Pain Free? Yes Yes Yes 12/02/20 12/05/20 10:28 12:42 Wound Center Nurse 2 #17 R Lat Ankle -Time 10:28 12:43 -Correct Patient Yes Yes -Correct Side, Site, Position Yes Yes -Correct Procedure Yes Yes -Procedure Performed Yes No -Type of Procedure Debridement -Clinical Debridement Subcutaneous -Tissue Removed Subcutaneous -Post Debridement (cm) - Length 2.4 -Post Debridement (cm) - Width 2 -Post Debridement (cm) - Depth 0.2 -Total Square (Post) (cm) 4.8 -Area of Debridement (cm) - Length 2.4 -Area of Debridement (cm) - Width 2.0 -Total Square (Area) (cm) 4.80 -Tunneling No -Undermining/Tunneling No -Circular Undermining No -Wound/Ulcer Outcome Not Healed -Ulcer Cleansing Rinsed/ Irrigated with Saline -Foul Odor after Cleansing No -Bioengineered Tissue No -Bleeding Controlled with Pressure -Offloading No -Type of Offloading Total Contact Cast (TCC) - Left ($) -Treatment Response Procedure Tolerated Well -Debridement - Subq, 1st 20sq cm Yes #16 L Plantar med foot -Time 10:31 -Correct Patient Yes -Correct Side, Site, Position Yes -Correct Procedure Yes -Procedure Performed Yes -Type of Procedure Debridement -Clinical Debridement Muscle / Fascia -Tissue Removed Muscle,Fascia -Post Debridement (cm) - Length 3.5 -Post Debridement (cm) - Width 3.4 -Post Debridement (cm) - Depth 1.4 -Total Square (Post) (cm) 11.90 -Area of Debridement (cm) - Length 3.5 -Area of Debridement (cm) - Width 3.4 -Total Square (Area) (cm) 11.90 -Tunneling No -Undermining/Tunneling No -Circular Undermining No -Wound/Ulcer Outcome Not Healed -Ulcer Cleansing Rinsed/ Irrigated with Saline -Foul Odor after Cleansing No -Bioengineered Tissue No -Bleeding Controlled with Pressure -Offloading Yes -Type of Offloading Total Contact Cast (TCC) - Left ($) -Treatment Response Procedure Tolerated Well -Debridement - Subq, 1st 20sq cm -Debridement - Muscle / Fascia, 1st Yes 20sq cm Pain Scale: 0-10 Numeric Is Patient Pain Free? Yes WC - Nurse 3 - General Ulcer D/C NN Start: 11/11/20 11:15 Freq: Status: Active Protocol: Activity Type Activity Date Activity User E-Sign Co-Sign Detail Recorded Client Recorded Date Recorded By Document 11/18/20 12:14 JF [id number] 11/18/20 12:16 JF Document 11/18/20 12:22 DL [id number] 11/18/20 12:25 DL Document 11/25/20 09:40 JF [id number] 11/25/20 09:43 JF Document 12/05/20 12:38 RB [id number] 12/05/20 12:42 RB 11/18/20 11/18/20 11/25/20 12:14 12:22 09:40 Wound Care Nurse 3 #17 R Lat Ankle -Ulcer Cleansing Rinsed/ Wound Cleanser Wound Cleanser Irrigated with Saline -Foul Odor after Cleansing No No No -Primary Dressing Applied Fibracol Plus Fibracol Plus Fibracol Plus 4x4 4x4 4x4 -Other Dressing [place] -Primary Dressing Covered/Secured with Dry Gauze & Dry Gauze & Dry Gauze & Roll Gauze, Roll Gauze, Roll Gauze, Secured with Secured with Secured with Tape Tape Tape -Fibracol Plus 4x4 1 1 1 #16 L Plantar med foot -Ulcer Cleansing Rinsed/ Wound Cleanser Wound Cleanser Irrigated with Saline -Foul Odor after Cleansing No No No -Negative Pressure Wound Therapy Continue Continue Continue -Setting (mmHg) 150 150 150 -Negative Pressure is Continuous Continuous Continuous -Primary Dressing Applied -Other Dressing SKIN PREP [place] -NPWT Application Charge ($) NPWT </= 50 sq NPWT </= 50 sq NPWT </= 50 sq cm cm cm -Aquacel AG 4x4 Right -Compression Wrap [place] Wrap Left -Compression Wrap [place] Wrap Treatment Response Procedure Procedure Tolerated Well Tolerated Well Vital Signs Temperature (97.8 F-99.1 F) Temperature Source Pulse Rate (60-100) Pulse Location Respiratory Rate (12-18) Respiratory rate source Blood Pressure (90/60-120/80) Blood Pressure Mean (mm Hg) Source Position Blood Pressure Location Pain Scale: 0-10 Numeric Is Patient Pain Free? Yes Yes Yes WC - Visit Discharge Discharge Condition Stable Stable Stable Ambulatory Status Ambulatory Ambulatory, Ambulatory Wheelchair Transportation Private Auto Private Auto hosp trans Medication Reconcilliation completed & Yes provided to patient/care provider Clinical Summary of Care Provided Yes Facility Type Home Health Home Health Orders Sent Yes Yes 12/05/20 12:38 Wound Care Nurse 3 #17 R Lat Ankle -Ulcer Cleansing Wound Cleanser -Foul Odor after Cleansing -Primary Dressing Applied Fibracol Plus 4x4 -Other Dressing -Primary Dressing Covered/Secured with Dry Gauze,Dry Gauze & Roll Gauze,Secured with Tape -Fibracol Plus 4x4 1 #16 L Plantar med foot -Ulcer Cleansing Wound Cleanser -Foul Odor after Cleansing -Negative Pressure Wound Therapy -Setting (mmHg) -Negative Pressure is -Primary Dressing Applied Aquacel AG 4x4 -Other Dressing primary layer of TCC applied -NPWT Application Charge ($) -Aquacel AG 4x4 1 Right -Compression Wrap Left -Compression Wrap Treatment Response Procedure Tolerated Well Vital Signs Temperature (97.8 F-99.1 F) 98 F Temperature Source Oral Pulse Rate (60-100) 100 Pulse Location Monitor Respiratory Rate (12-18) 18 Respiratory rate source Observation Blood Pressure (90/60-120/80) 179/91 H Blood Pressure Mean (mm Hg) 120 Source Monitor Position Semi-Fowlers Blood Pressure Location Left Arm Pain Scale: 0-10 Numeric Is Patient Pain Free? Yes WC - Visit Discharge Discharge Condition Stable Ambulatory Status Ambulatory, Walker Transportation Private Auto Medication Reconcilliation completed & No provided to patient/care provider Clinical Summary of Care Provided Yes Facility Type Orders Sent Wound debrided: left plantar medial foot Laterality: Left Patient tolerated procedure well Operative Diagnosis: TCC placed per fruit and vegetable parer guidelines No debridement was completed today Assessment/Plan Active Problems (This Medical Record has been edited. Action required.) Ulcer of right ankle (Chronic) Ulcer of left foot with muscle involvement without evidence of necrosis (Chronic) Uncontrolled type II diabetes mellitus (Chronic) Obesity (Chronic) Assessment: Diabetic ulcer of right ankle -, grade 1. Diabetic ulcer plantar left foot- grade 2. Diabetic foot ulcer associated with type 2 diabetes mellitus. Hemoglobin A1c 9.17 Aug 2020. varus deformity bilateral lower extremities. malnutrition suspected. delayed healing. obesity Plan: Patient was carefully examined and evaluated in detail today. No debridement completed today. Dressings applied as below. Procedure was well- tolerated. Patient has demonstrated inability to be nonweight bearing to left foot and was treated with TCC application on 12/02/2020. Left plantar foot ulcer improved per evaluation. New TCC application again today to left foot. Continue daily dressing changes to right foot. Patient was admitted to hospital 11/14/20 for altered mental status where TCC was removed and culture of wound was obtained from left foot. Culture grew enterobacter cloacae, klebsiella oxytoca, corynebacterium striatum, and enterocccus faecalis. Dr Tello was contacted about cultures and he prescribed omnicef and lineozilid. 12/02/20. Discussed importance of properly cleaning foot and protecting area when in shower as some of the bacteria she grew are commonly found in GI tract. It is noted she is already been undergoing a comprehensive wound healing plan and has delayed and nonhealing. She has had prior bone biopsies, wound culture, and intervention with infectious disease. Her lab work was reviewed within the past 3 months. She has suspected adequate vascular perfusion for healing per her recent noninvasive vascular studies 09/01/2020 with triphasic waveforms noted. Patient's hemoglobin A1c was 9.8 in August 2020. Offloading strongly recommended. She presents today ambulating in a CAM boot with offloading insert without crutches. Patient relates she is living with her daughter and is expected to do dishes and help around the house as well as with her grandchildren. Reiterated the importance of non weight bearing. Discussed she could lose her foot if an infection sets in. She admits she does not offload well at home and I advised her to take some accountability for this part of her healing plan. Also discussed various offloading methods such as pillows and an offloading boot for her right lateral ankle ulceration. Patient states that she has has tried all of these but she has restless leg syndrome and is not able to use any of these options as they all are kicked away. Discussed using these methods while awake and on couch to help offload the area even if she is unable to maintain this offloading while sleeping. Patient relates that she still is not able to go to her home due to not having a working furnace. Patient relates that when she is home she will be able to be in her wheelchair which will remove pressure from the wound. Optimal blood sugar control and increased protein intake also discussed. Discussed importance of having her meds with her especially when she is living at her daughters house her meds should be with her there and not at her house where they aren't accessible. All questions were answered and she was advised to call with any further questions or concerns. All signs and symptoms of local and systemic infection were discussed with the patient today. The lateral right ankle ulcer is stable today, the plantar left foot is malodorous and is again probing to bone with muscle exposed. We will again try the TCC as patient is not able to be compliant with NWB. Fibracol dorsal dressing was applied to the right ankle. Application for Apligraf graft to right ankle wound was applied. Patient provided verbal consent for a left total contact cast. This was applied in a well padded neutral position according standard protocol. He tolerated this well. She was also advised to keep this clean, dry, and intact until follow-up next week. Patient is also trying to get her in from [place] to the [facility] and requested her medical records be sent to her hand mexican food [employer]. Discussed with the patient that I would be happy to do so but will require legal release of her records in order to send him. Patient is to obtain & legal release of her records and return the form to us and once this is accomplished we will fax medical records to her hand mex[employer] food [employer]. Follow up in 1 week. This note was generated with [employer] software. It may contain incorrect words, spelling, and punctuation that were not noted in checking the note before signing.
== END 2020-12-07 23:59 ==
LOC: WC 11:30
PROVIDERS: PCP Family Medicine; Referring Provider Podiatrist; Visit Provider Podiatrist Foot & Ankle Surgery
DX: E11.621 Type 2 diabetes mellitus with foot ulcer (principal); L97.423 Non-pressure chronic ulcer of left heel and midfoot with necrosis of muscle; E11.622 Type 2 diabetes mellitus with other skin ulcer; L97.312 Non-pressure chronic ulcer of right ankle with fat layer exposed; E11.65 Type 2 diabetes mellitus with hyperglycemia; M21.10 Varus deformity, not elsewhere classified, unspecified site; E66.9 Obesity, unspecified
CPT/HCPCS: 11042; 11043; 29445; 82962; 97605; 99213; G0463

== ENCOUNTER 2020-12-23 08:30 | Outpatient (RCR) | payer MEDICARE, MEDICAID, SELFPAY ==
[2018-09-21 13:23] VITALS: BMI 29.3
[2020-12-08 00:10] VITALS: BP 179/91; PULSE 100; RESP 18; TEMP 36.6; BMI 31.1
[2020-12-09 08:58] VITALS: BP 185/91; PULSE 92; RESP 22; TEMP 36; BMI 31.1
--- NOTE | 2020-12-09 09:24 | PN.PCM_ITS ---
(1) Ulcer of right ankle Status: Chronic Qualifiers: Non-pressure ulcer stage: with fat layer exposed Qualified Code(s): L97.312 - Non-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 Code(s): L97.319 - Non-pressure chronic ulcer of right ankle with unspecified severity (2) Ulcer of left foot with muscle involvement without evidence of necrosis Status: Chronic Code(s): L97.525 - Non-pressure chronic ulcer of other part of left foot with muscle involvement without evidence of necrosis (3) Uncontrolled type II diabetes mellitus Status: Chronic Qualifiers: Glycemic state: with hyperglycemia Code(s): E11.65 - Type 2 diabetes mellitus with hyperglycemia (4) Obesity Status: Chronic Qualifiers: Code(s): E66.9 - Obesity, unspecified (5) Diabetic polyneuropathy Status: Chronic Qualifiers: Diabetes mellitus type: type 2 Code(s): E11.42 - 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 of Wound Date of Service: 12/09/20 Chief Complaint: Right ankle diabetic ulcer. left foot ulcer History of Wound: Patient is a 55-year-old female who presents to the clinic for follow-up of hospital stay for a left foot chronic ulceration. Patient had MRI on 09/01/2020 showing 1. Large 5.81 x 1.70 cm open skin defect/wound on the lateral plantaraspect of the foot contains fluid and debris and can be a infected. The investing fascia and the plantar aspect of the foot beneath the fourth metatarsal bone encloses the complex fluid collection, and there is no demonstrated intramuscular extension or contact with the overlying bony structures. 2. Mild cortical irregularity is present at the base and plantar and lateral aspect of the fifth metatarsal bone and cuboid which could be related to prior infection or sequela from previous trauma. 3. No active bone marrow edema or cortical erosion is seen to suggest. active osteomyelitis. Patient had an I&D performed in the hospital by Dr. Guadarrama on 09/08/2020. That time patient was noted to have infection to left foot wound with Staphylococcus and Enterobacter which was treated during her stay at the hospital and TCU. Patient has had this ulceration for quite some time. 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 Patient also was noted to have bilateral varus foot deformity. Patient has a noted history of poor compliance of medical recommendations. Patient presents to the office ambulating in [facility] unassisted. She states that she cannot do nonweightbearing with the crutches as she is afraid she will fall. Patient had [facility] PT that has since finished and patient states she never felt stable. Patient was noted to have course of antibiotics while in the hospital in August 2020. Since being discharged from the hospital August 2020 patient has missed several of her follow-up appointments including here at the wound care center as well as with her primary care physician. She states issues with transportation. Patient missed follow- up appointment with infectious disease on November 12, 2020. She states that she has another appointment with them 11/26/2020. She states he didn't do anything. . Patient has had issues with taking her insulin either with not having her medications on her not being able to obtain it from the pharmacy. Patient has had recent high and low sugar levels. Patient states that she did not go to the hospital or call anyone when she noticed extremely high or low blood sugars. Discussed with the patient the importance of proper wound blood glucose management and if any extreme numbers are seen to take them seriously and go to the emergency department. Patient states that she is still doing her wound VAC and with nursing coming out to assist. She states that they are not washing her foot prior to reapplication. She was admitted to the hospital 11/14/20 for altered mental status. She was found to have had 2 mini strokes per patient. The TCC was removed at that time and patient was to resume wound vac. Culture was obtained in the hospital growing enterobacter cloacae, klebsiella oxytoca, corynebacterium striatum, and enterococcus faecalis. This wasn't treated while in the hospital. Dr Tello was contacted and he started her on linezolid and omnicef 12/02/20. Patient also relates that she is largely nonweightbearing by sitting in a chair or on the couch she also uses a wheelchair at home. She states she doesn't have a water heater so is staying at her daughter's house where she can't use her wheelchair and is expected to help with her grandchildren. She does admit to external rotation of the lower extremities which could be a contributing factor to ulcer breakdown of the right lateral ankle. She also admits to having offloading boot that she does not wear at night as she states she kicks it off due to her restless leg syndrome. She relates that she has a in [place] and visits him for months at a time when she has the funds. This has contributed to her noncompliance. Patient also relates having ulceration to the right lateral ankle that began in the middle of September 2020 she believes that this started while sleeping with her restless leg syndrome. Patient relates that the wound has worsened beginning of October 2020. Especially after falling in a hole while walking in the yard where her foot and dressing got wet. Patient had an episode where her wound VAC battery but the VAC was left in place for 10 hours. Patient was made aware that leaving the wound VAC on without the machine on will be detrimental to her healing process. Patient relates that the wound VAC never has a good seal and does not feel like it is doing a job as it should. Patient expresses concern over losing her foot but seems reluctant to follow treatment recommendations. She does not seem willing or capable to follow instructions. Progress of Wound: Stable left plantar wound improvement noted with no callus buildup and more muscle coverage noted. Stable right ankle wound improved with less depth noted and smaller size Subjective: Patient seen and examined resting comfortably. Patient denies any new pedal complaints. Patient denies any nausea, fever, chills, chest pain, shortness of breath, cough, streaking, purulence, vomiting. Patient relates that the total contact cast placed on Tuesday was a little too high and was rubbing back of her leg. She also relates that she feels unsteady walking due to the high differential between her left and right legs - Physical Exam Vital Signs Temp Pulse Resp BP 96.8 F L 92 22 H 185/91 H 12/09/20 08:58 12/09/20 08:58 12/09/20 08:58 12/09/20 08:58 General: Alert, Oriented x3 HEENT: Atraumatic Abdomen: Obese Extremities: No clubbing, No cyanosis, No edema, Capillary Refill Less than 3 Seconds, No Calf Tenderness, Peripheral Pulses Normal Skin: Ulcer/ Wound - Left plantar foot. No malodor, erythema, purulence, probing to bone, streaking, or other signs of infection. Muscle is exposed. Skin is atrophic and hairless. Granular base with serosanguineous drainage after debridement. Wound noted to have improved appearance, - - Right lateral ankle. No malodor, erythema, purulence, probing to bone, streaking, or other signs of infection. Skin is atrophic and hairless. Granular base with serosanguineous drainage after debridement. Less depth is noted to wound with improved size as well. Wound Measurements and Assessment WC - Nurse 1 - General Ulcer Measurement Start: 12/09/20 08:58 Freq: Status: Active Protocol: Activity Type Activity Date Activity User E-Sign Co-Sign Detail Recorded Client Recorded Date Recorded By Document 12/09/20 08:58 DL [id number] 12/09/20 09:09 DL 12/09/20 08:58 Wound Center Nurse 1 [Ulcer Assessment] #17 R Lat Ankle -Current Size (cm) - Length 1.8 -Current Size (cm) - Width 1.7 -Current Size (cm) - Depth 0.2 -Total Square Cm 3.06 -Photo Taken No -Exudate Amt Medium -Exudate Type Serosanguineous -Wound Margin Distinct, Outline Attached -Granulation Amt Medium (34-66%) -Granulation Quality Pale,Urbank,Red -Necrosis Amt Medium (34-66%) -Necrotic Tissue Type Adherent Slough -Structure Exposed N/A -Texture (Natacha-wound Skin Appearance) Scarring -Moisture (Natacha-wound Skin Appearance No Abnormality ) -Color (Natacha-wound Skin Appearance) No Abnormality -Temperature (Natacha-wound Skin No Abnormality Appearance) (Pt Warm) -Tenderness on Palpation (Natacha-wound No Skin Appearance) -Ulcer Cleansing Wound Cleanser -Foul Odor after Cleansing No -Anesthetic Used 4% Lidocaine Solution #16 L Plantar med foot -Current Size (cm) - Length 3 -Current Size (cm) - Width 3.1 -Current Size (cm) - Depth 1.2 -Total Square Cm 9.3 -Photo Taken No -Exudate Amt Medium -Exudate Type Serosanguineous -Wound Margin Distinct, Outline Attached -Granulation Amt Medium (34-66%) -Granulation Quality Urbank -Necrosis Amt Medium (34-66%) -Necrotic Tissue Type Adherent Slough -Structure Exposed N/A -Texture (Natacha-wound Skin Appearance) Callus,Scarring -Moisture (Natacha-wound Skin Appearance No Abnormality ) -Color (Natacha-wound Skin Appearance) No Abnormality -Temperature (Natacha-wound Skin No Abnormality Appearance) (Pt Warm) -Tenderness on Palpation (Natacha-wound No Skin Appearance) -Ulcer Cleansing Wound Cleanser -Foul Odor after Cleansing No -Anesthetic Used 4% Lidocaine Solution Musculoskeletal: No Tenderness to Palpation of Joints or Extremities, Muscle Wasting, - - varus foot deformity Neurological: - - Lack of epicritic sensation consistent with neuropathy Psych/Mental Status: Normal Affect, Appropriate Debridement Note Wound debrided: Plantar foot Laterality: Left Wound Grade/Stage: Freedman 2 Type of Debridement: Excisional debridement Anesthesia Used: 4% Lidocaine Solution Depth: to muscle Percentage of wound debrided: 100 Instrument Used: 5mm curette Tissue Removed: Tissue removed includes fibrous, devitalized, biofilm, and slough tissue Severity: Necrosis of Muscle - Exposed muscle Amount of bleeding with debridement: Mild Bleeding Controlled with: Pressure Patient tolerated procedure well - Additional Wound Wound debrided: Lateral ankle Laterality: Right Wound Grade/Stage: Freedman 1 Type of Debridement: Excisional debridement Anesthesia Used: 4% Lidocaine Solution Depth: in the subcutaneous layer Percentage of wound debrided: 100 Instrument Used: 5mm curette Tissue Removed: Tissue removed includes fibrous, devitalized, biofilm, and slough tissue Severity: Fat Layer Exposed Amount of bleeding with debridement: Mild Bleeding Controlled with: Pressure Patient tolerated procedure: Patient tolerated procedure well Assessment/Plan Assessment: Diabetic ulcer of right ankle -, grade 1. Diabetic ulcer plantar left foot- grade 2. Diabetic foot ulcer associated with type 2 diabetes mellitus. Hemoglobin A1c 9.17 Aug 2020. varus deformity bilateral lower extremities. malnutrition suspected. delayed healing. obesity Plan: The right lateral ankle wound is noted to have improved in both depth and size. The left plantar foot ulceration is noted to have more muscle coverage last week with no malodor or other signs of infection and no callus buildup. Discussed getting even up from office for contralateral limb from [facility] to assist in ambulation. Discussed that given the improvement seen in 1 week with the total contact cast that we will continue this on the left foot. The right lateral ankle was approved for Apligraf #1 application today. We will continue will absorbent dressing with silver to left foot under total contact cast. Bilateral ulcerations were debrided with a 5 mm curette without incident after verbal consent was obtained by the patient. Patient provided verbal consent for a left total contact cast. This was applied in a well padded neutral position according standard protocol. The patient tolerated this well. Patient was also advised to keep this clean, dry, and intact until follow-up next week. I recommend application of advanced wound healing product to the right foot. Prior authorization was confirmed. The indications, benefits, anticipated application and healing time management were reviewed in detail. Verbal consent was obtained in the procedure for today. Site was debrided and graft was applied according to standard protocol and was further secured with a wound veil and Steri-Strips. Patient was admitted to hospital 11/14/20 for altered mental status where TCC was removed and culture of wound was obtained from left foot. Culture grew enterobacter cloacae, klebsiella oxytoca, corynebacterium striatum, and enterocccus faecalis. Dr Tello was contacted about cultures and he prescribed omnicef and lineozilid 12/02/20. Discussed importance of properly cleaning foot and protecting area when in shower as some of the bacteria she grew are commonly found in GI tract. It is noted she is already been undergoing a comprehensive wound healing plan and has delayed and nonhealing. She has had prior bone biopsies, wound culture, and intervention with infectious disease. She has suspected adequate vascular perfusion for healing per her recent no ninvasive vascular studies 09/01/2020 with triphasic waveforms noted. Patient's hemoglobin A1c was 9.8 in August 2020. Offloading strongly recommended. She presents today ambulating in TCC unassisted. Patient relates she is living with her daughter and is expected to do dishes and help around the house as well as with her grandchildren. Reiterated the importance of non weight bearing. Dis cussed she could lose her foot if an infection sets in. She admits she does not offload well at home and I advised her to take some accountability for this part of her healing plan. Also discussed various offloading methods such as pillows and an offloading boot for her right lateral ankle ulceration. Patient states that she has has tried all of these but she has restless leg syndrome and is not able to use any of these options as they all are kicked away. Discussed using these methods while awake and on couch to help offload the area even if she is unable to maintain this offloading while sleeping. Patient relates that she still is not able to go to her home due to not having a working furnace. Patient relates that when she is home she will be able to be in her wheelchair which will remove pressure from the wound. Optimal blood sugar control and increased protein intake also discussed. Discussed importance of having her meds with her especially when she is living at her daughters house her meds should be with her there and not at her house where they aren't accessible. All questions were answered and she was advised to call with any further questions or concerns. All signs and symptoms of local and systemic infection were discussed with the patient today. Follow up in 1 week. This note was generated with [employer] dictation software. It may contain incorrect words, spelling, and punctuation that were not noted in checking the note before signing.
[2020-12-16 09:54] VITALS: BP 158/80; PULSE 90; RESP 16; TEMP 36.1; BMI 31.1
--- NOTE | 2020-12-16 12:22 | PN.PCM_ITS ---
(1) Ulcer of right ankle Status: Chronic Qualifiers: Non-pressure ulcer stage: with fat layer exposed Qualified Code(s): L97.312 - Non-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 Code(s): L97.319 - Non-pressure chronic ulcer of right ankle with unspecified severity (2) Ulcer of left foot with muscle involvement without evidence of necrosis Status: Chronic Code(s): L97.525 - Non-pressure chronic ulcer of other part of left foot with muscle involvement without evidence of necrosis (3) Uncontrolled type II diabetes mellitus Status: Chronic Qualifiers: Glycemic state: with hyperglycemia Code(s): E11.65 - Type 2 diabetes mellitus with hyperglycemia (4) Obesity Status: Chronic Qualifiers: Code(s): E66.9 - Obesity, unspecified (5) Diabetic polyneuropathy Status: Chronic Qualifiers: Diabetes mellitus type: type 2 Code(s): E11.42 - 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 of Wound Date of Service: 12/16/20 Chief Complaint: Right ankle diabetic ulcer. left foot ulcer History of Wound: Patient is a 55-year-old female who presents to the clinic for follow-up of hospital stay for a left foot chronic ulceration. Patient had MRI on 09/01/2020 showing 1. Large 5.81 x 1.70 cm open skin defect/wound on the lateral plantaraspect of the foot contains fluid and debris and can be a infected. The investing fascia and the plantar aspect of the foot beneath the fourth metatarsal bone encloses the complex fluid collection, and there is no demonstrated intramuscular extension or contact with the overlying bony structures. 2. Mild cortical irregularity is present at the base and plantar and lateral aspect of the fifth metatarsal bone and cuboid which could be related to prior infection or sequela from previous trauma. 3. No active bone marrow edema or cortical erosion is seen to suggest. active osteomyelitis. Patient had an I&D performed in the hospital by Dr. Guadarrama on 09/08/2020. That time patient was noted to have infection to left foot wound with Staphylococcus and Enterobacter which was treated during her stay at the hospital and TCU. Patient has had this ulceration for quite some time. 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 Patient also was noted to have bilateral varus foot deformity. Patient has a noted history of poor compliance of medical recommendations. Patient presents to the office ambulating in [facility] unassisted. She states that she cannot do nonweightbearing with the crutches as she is afraid she will fall. Patient had [facility] PT that has since finished and patient states she never felt stable. Patient was noted to have course of antibiotics while in the hospital in August 2020. Since being discharged from the hospital August 2020 patient has missed several of her follow-up appointments including here at the wound care center as well as with her primary care physician. She states issues with transportation. Patient missed follow- up appointment with infectious disease on November 12, 2020. She states that she has another appointment with them 11/26/2020. She states he didn't do anything. . Patient has had issues with taking her insulin either with not having her medications on her not being able to obtain it from the pharmacy. Patient has had recent high and low sugar levels. Patient states that she did not go to the hospital or call anyone when she noticed extremely high or low blood sugars. Discussed with the patient the importance of proper wound blood glucose management and if any extreme numbers are seen to take them seriously and go to the emergency department. She was admitted to the hospital 11/14/20 for altered mental status. She was found to have had 2 mini strokes per patient. The TCC was removed at that time and patient was to resume wound vac. Culture was obtained in the hospital growing enterobacter cloacae, klebsiella oxytoca, corynebacterium striatum, and enterococcus faecalis. This wasn't treated while in the hospital. Dr Tello was contacted and he started her on linezolid and omnicef 12/02/20. Patient also relates that she is largely nonweightbearing by sitting in a chair or on the couch she also uses a wheelchair at home. She states she moved back into her house yesterday where she can use her wheelchair. He does admit to walking around without the boot to protect the total contact cast. She did break her total contact cast but 2 days ago. She relates that the graft also came off of her ankle about 2 days ago as well. She does admit to external rotation of the lower extremities which could be a contributing factor to ulcer breakdown of the right lateral ankle. She also admits to having offloading boot that she does not wear at night as she states she kicks it off due to her restless leg syndrome. She relates that she has a in [place] and visits him for months at a time when she has the funds. This has contributed to her noncompliance. Patient also relates having ulceration to the right lateral ankle that began in the middle of September 2020 she believes that this started while sleeping with her restless leg syndrome. Patient relates that the wound has worsened beginning of October 2020. Especially after falling in a hole while walking in the yard where her foot and dressing got wet. Patient had an episode where her wound VAC battery but the VAC was left in place for 10 hours. Patient was made aware that leaving the wound VAC on without the machine on will be detrimental to her healing process. Patient relates that the wound VAC never has a good seal and does not feel like it is doing a job as it should Like to try other modalities. Patient expresses concern over losing her foot but seems reluctant to follow treatment recommendations. She does not seem willing or capable to follow instructions. Progress of Wound: improved left plantar wound improvement noted with no callus buildup and more muscle coverage noted. Improved right ankle wound improved with less depth noted and smaller size Subjective: Patient seen and examined resting comfortably. Patient denies any new pedal complaints. Patient denies any nausea, fever, chills, chest pain, shortness of breath, cough, streaking, purulence, vomiting. - Physical Exam Vital Signs Temp Pulse Resp BP 96.9 F L 90 16 158/80 H 12/16/20 09:54 12/16/20 09:54 12/16/20 09:54 12/16/20 09:54 General: Alert, Oriented x3 HEENT: Atraumatic Abdomen: Obese Extremities: No clubbing, No cyanosis, No edema, Capillary Refill Less than 3 Seconds, No Calf Tenderness, Diminished Peripheral Pulses Skin: Ulcer/ Wound - Right lateral ankle and plantar left foot. No malodor, erythema, purulence, probing to bone, streaking, or other signs of infection. Skin is atrophic and hairless. Granular base. Left plantar foot wound probes to muscle. Bone is covered. Minimal callus buildup noted. No signs of infection Wound Measurements and Assessment WC - Nurse 1 - General Ulcer Measurement Start: 12/09/20 08:58 Freq: Status: Active Protocol: Activity Type Activity Date Activity User E-Sign Co-Sign Detail Recorded Client Recorded Date Recorded By Document 12/16/20 09:54 [facility] [id number] 12/16/20 10:04 [facility] 12/16/20 09:54 Wound Center Nurse 1 [Ulcer Assessment] #17 R Lat Ankle -Combined with other wound No -Current Size (cm) - Length 1.7 -Current Size (cm) - Width 1.4 -Current Size (cm) - Depth 0.1 -Total Square Cm 2.38 -Photo Taken No -Epithelialization Small 1-33% -Tunneling No -Undermining/Tunneling No -Circular Undermining No -Exudate Amt Medium -Exudate Type Serosanguineous -Wound Margin Distinct, Outline Attached -Granulation Amt Large (67-100%) -Granulation Quality Red -Slough/Fibrin Yes -Necrosis Amt Small (1-33%) -Necrotic Tissue Type Adherent Slough -Texture (Natacha-wound Skin Appearance) Assessed, Scarring -Moisture (Natacha-wound Skin Appearance Assessed ) -Color (Natacha-wound Skin Appearance) Assessed, Erythema -Temperature (Natacha-wound Skin No Abnormality Appearance) (Pt Warm) -Tenderness on Palpation (Natacha-wound No Skin Appearance) -Ulcer Cleansing SOAPY WATER -Foul Odor after Cleansing No -Anesthetic Used 4% Lidocaine Solution #16 L Plantar med foot -Combined with other wound No -Current Size (cm) - Length 2.9 -Current Size (cm) - Width 2.8 -Current Size (cm) - Depth 1 -Total Square Cm 8.12 -Photo Taken No -Epithelialization Small 1-33% -Tunneling No -Undermining/Tunneling No -Circular Undermining No -Exudate Amt Large -Exudate Type Serosanguineous -Wound Margin Distinct, Outline Attached -Granulation Amt Large (67-100%) -Granulation Quality Red -Slough/Fibrin Yes -Necrosis Amt Small (1-33%) -Necrotic Tissue Type Adherent Slough -Texture (Natacha-wound Skin Appearance) Assessed, Scarring -Moisture (Natacha-wound Skin Appearance Assessed ) -Color (Natacha-wound Skin Appearance) Assessed -Temperature (Naatcha-wound Skin No Abnormality Appearance) (Pt Warm) -Tenderness on Palpation (Natacha-wound No Skin Appearance) -Ulcer Cleansing SOAPY WATER -Foul Odor after Cleansing No -Anesthetic Used 4% Lidocaine Solution WC - Nurse 2 - General Ulcer CM Notes Start: 12/09/20 08:58 Freq: Status: Active Protocol: Activity Type Activity Date Activity User E-Sign Co-Sign Detail Recorded Client Recorded Date Recorded By Document 12/16/20 10:37 [email or web address] [id number] 12/16/20 10:43 [facility] 12/16/20 10:37 Wound Center Nurse 2 [Procedure/Treatment] #17 R Lat Ankle -Time 10:38 -Correct Patient Yes -Correct Side, Site, Position Yes -Correct Procedure Yes -Procedure Performed Yes -Type of Procedure Debridement -Clinical Debridement Subcutaneous -Tissue Removed Subcutaneous -Post Debridement (cm) - Length 1.6 -Post Debridement (cm) - Width 1.3 -Post Debridement (cm) - Depth 0.2 -Total Square (Post) (cm) 2.08 -Area of Debridement (cm) - Length 1.6 -Area of Debridement (cm) - Width 1.3 -Total Square (Area) (cm) 2.08 -Tunneling No -Undermining/Tunneling No -Circular Undermining No -Wound/Ulcer Outcome Not Healed -Ulcer Cleansing Rinsed/ Irrigated with Saline -Foul Odor after Cleansing No -Bioengineered Tissue Yes -Type of Bioengineered Tissue Apligraf -Expiration Date 12/20/20 -Product Lot Number [id number] -Percent Used 100 -Lot number of Saline Used [id number] -Bleeding Controlled with Pressure -Offloading No -Treatment Response Procedure Tolerated Well -Debridement - Subq, 1st 20sq cm No -Apligraf (per sq cm) 44 Query Text:1 sheet = 44 sq cm #16 L Plantar med foot -Time 10:40 -Correct Patient Yes -Correct Side, Site, Position Yes -Correct Procedure Yes -Procedure Performed Yes -Type of Procedure Debridement -Clinical Debridement Muscle / Fascia -Tissue Removed Muscle,Fascia -Post Debridement (cm) - Length 3 -Post Debridement (cm) - Width 3 -Post Debridement (cm) - Depth 1.3 -Total Square (Post) (cm) 9 -Area of Debridement (cm) - Length 3 -Area of Debridement (cm) - Width 3 -Total Square (Area) (cm) 9 -Tunneling No -Undermining/Tunneling No -Circular Undermining No -Wound/Ulcer Outcome Not Healed -Ulcer Cleansing Rinsed/ Irrigated with Saline -Foul Odor after Cleansing No -Bioengineered Tissue No -Bleeding Controlled with Pressure -Offloading Yes -Type of Offloading Total Contact Cast (TCC) - Left ($) -Debridement - Muscle / Fascia, 1st Yes 20sq cm [See Physician Procedure note for Specifics] Pain Scale: 0-10 Numeric [Pain] -Is Patient Pain Free? Yes - Nurse 3 - General Ulcer D/C NN Start: 12/09/20 08:58 Freq: Status: Active Protocol: Activity Type Activity Date Activity User E-Sign Co-Sign Detail Recorded Client Recorded Date Recorded By Document 12/16/20 10:58 [facility] [id number] 12/16/20 10:59 [facility] 12/16/20 10:58 Wound Care Nurse 3 [Wound Dressing] #17 R Lat Ankle -Other Dressing APLIGRAPH -Primary Dressing Covered/Secured Dry Gauze & with Roll Gauze, Secured with Tape #16 L Plantar med foot -Other Dressing APLIGRAPH -Other Covering TCC UNDERCAST [Compression Applied] Right -Compression Wrap [place] Wrap [Post Procedure Tolerated] -Treatment Response Procedure Tolerated Well Pain Scale: 0-10 Numeric [Pain] -Is Patient Pain Free? Yes - Visit Discharge [Visit Discharge Information] -Discharge Condition Stable -Ambulatory Status Wheelchair -Transportation Private Auto [Facility Notification] -Facility Type Home Health Musculoskeletal: Muscle Wasting Neurological: - - Lack of epicritic sensation consistent with neuropathy Psych/Mental Status: Normal Affect, Appropriate Debridement Note Post-Debridement Measurements/Treatment - Nurse 2 - General Ulcer CM Notes Start: 12/09/20 08:58 Freq: Status: Active Protocol: Activity Type Activity Date Activity User E-Sign Co-Sign Detail Recorded Client Recorded Date Recorded By Document 12/09/20 09:17 [id number] 12/09/20 13:50 Document 12/16/20 10:37 [id number] 12/16/20 10:43 12/09/20 12/16/20 09:17 10:37 Wound Center Nurse 2 #17 R Lat Ankle -Time 09:18 10:38 -Correct Patient Yes Yes -Correct Side, Site, Position Yes Yes -Correct Procedure Yes Yes -Procedure Performed Yes Yes -Type of Procedure Debridement Debridement -Clinical Debridement Subcutaneous Subcutaneous -Tissue Removed Subcutaneous Subcutaneous -Post Debridement (cm) - Length 2 1.6 -Post Debridement (cm) - Width 1.5 1.3 -Post Debridement (cm) - Depth 0.2 0.2 -Total Square (Post) (cm) 3.0 2.08 -Area of Debridement (cm) - Length 2.0 1.6 -Area of Debridement (cm) - Width 1.5 1.3 -Total Square (Area) (cm) 3.00 2.08 -Tunneling No No -Undermining/Tunneling No No -Circular Undermining No No -Wound/Ulcer Outcome Not Healed Not Healed -Ulcer Cleansing Rinsed/ Rinsed/ Irrigated with Irrigated with Saline Saline -Foul Odor after Cleansing No No -Bioengineered Tissue Yes Yes -Type of Bioengineered Tissue Apligraf Apligraf -Expiration Date 12/18/20 12/20/20 -Product Lot Number [id number] -Percent Used 100 100 -Lot number of Saline Used [id number] -Bleeding Controlled with Pressure Pressure -Offloading No No -Treatment Response Procedure Procedure Tolerated Well Tolerated Well -Debridement - Subq, 1st 20sq cm No No -Apply Skin Sub - 1st 25 sq cm - Legs 1 -Apligraf (per sq cm) 44 44 Query Text:1 sheet = 44 sq cm #16 L Plantar med foot -Time 09:18 10:40 -Correct Patient Yes Yes -Correct Side, Site, Position Yes Yes -Correct Procedure Yes Yes -Procedure Performed Yes Yes -Type of Procedure Debridement Debridement -Clinical Debridement Muscle / Fascia Muscle / Fascia -Tissue Removed Subcutaneous, Muscle,Fascia Muscle -Post Debridement (cm) - Length 3 3 -Post Debridement (cm) - Width 3.4 3 -Post Debridement (cm) - Depth 1.3 1.3 -Total Square (Post) (cm) 10.2 9 -Area of Debridement (cm) - Length 3 3 -Area of Debridement (cm) - Width 3.4 3 -Total Square (Area) (cm) 10.2 9 -Tunneling No No -Undermining/Tunneling No No -Circular Undermining No No -Wound/Ulcer Outcome Not Healed Not Healed -Ulcer Cleansing Wound Cleanser Rinsed/ Irrigated with Saline -Foul Odor after Cleansing No No -Bioengineered Tissue Yes No -Type of Bioengineered Tissue Apligraf -Expiration Date 12/18/20 -Product Lot Number [id number] -Percent Used 100 -Lot number of Saline Used [id number] -Bleeding Controlled with Pressure Pressure -Offloading Yes Yes -Type of Offloading Total Contact Total Contact Cast (TCC) - Cast (TCC) - Left ($) Left ($) -Treatment Response Procedure Tolerated Well -Debridement - Muscle / Fascia, 1st Yes Yes 20sq cm -Apply Skin Sub - 1st 25 sq cm - Feet 0 -Apligraf (per sq cm) 0 Query Text:1 sheet = 44 sq cm Pain Scale: 0-10 Numeric Is Patient Pain Free? Yes Yes - Nurse 3 - General Ulcer D/C NN Start: 12/09/20 08:58 Freq: Status: Active Protocol: Activity Type Activity Date Activity User E-Sign Co-Sign Detail Recorded Client Recorded Date Recorded By Document 12/16/20 10:58 [facility] [id number] 12/16/20 10:59 [facility] 12/16/20 10:58 Wound Care Nurse 3 #17 R Lat Ankle -Other Dressing APLIGRAPH -Primary Dressing Covered/Secured with Dry Gauze & Roll Gauze, Secured with Tape #16 L Plantar med foot -Other Dressing APLIGRAPH -Other Covering TCC UNDERCAST Right -Compression Wrap [place] Wrap Treatment Response Procedure Tolerated Well Pain Scale: 0-10 Numeric Is Patient Pain Free? Yes - Visit Discharge Discharge Condition Stable Ambulatory Status Wheelchair Transportation Private [facility] Facility Type Home Health Wound debrided: Lateral ankle Laterality: Right Wound Grade/Stage: Freedman 1 Type of Debridement: Excisional debridement Anesthesia Used: 4% Lidocaine Solution Depth: in the subcutaneous layer Percentage of wound debrided: 100 Instrument Used: 5mm curette Tissue Removed: Tissue removed includes fibrous, devitalized, biofilm, and slough tissue Severity: Fat Layer Exposed Amount of bleeding with debridement: Mild Bleeding Controlled with: Pressure Patient tolerated procedure well - Additional Wound Wound debrided: Enter foot Laterality: Left Wound Grade/Stage: Freedman 2 Type of Debridement: Excisional debridement Anesthesia Used: 4% Lidocaine Solution Depth: to muscle Percentage of wound debrided: 100 Instrument Used: 5mm curette Tissue Removed: Tissue removed includes fibrous, devitalized, biofilm, and slough tissue Severity: Necrosis of Muscle Amount of bleeding with debridement: Mild Bleeding Controlled with: Pressure Patient tolerated procedure: Patient tolerated procedure well Assessment/Plan Active Problems (This Medical Record has been edited. Action required.) Ulcer of right ankle (Chronic) Ulcer of left foot with muscle involvement without evidence of necrosis (Chronic) Uncontrolled type II diabetes mellitus (Chronic) Obesity (Chronic) Diabetic polyneuropathy (Chronic) Assessment: Diabetic ulcer of right ankle -, grade 1. Diabetic ulcer plantar left foot- grade 2. Diabetic foot ulcer associated with type 2 diabetes mellitus. Hemoglobin A1c 9.17 Aug 2020. varus deformity bilateral lower extremities. malnutrition suspected. delayed healing. obesity Plan: The right lateral ankle wound and left foot plantar wound is noted to have improved in both depth and size. The left plantar foot ulceration is noted to have more muscle coverage last week with no malodor or other signs of infection and no callus buildup. Discussed getting even up from office for contralateral limb from [facility] to assist in ambulation. Discussed using boot to protect total contact cast. Patient noted to have fractured the total contact cast about 2 days ago by walking without it up and down stairs. Discussed that given the improvement seen in 1 week with the total contact cast that we will continue this on the left foot. The right lateral ankle was approved for Apligraf #2 application today. We will continue will absorbent dressing to left foot under total contact cast. Bilateral ulcerations were debrided after verbal consent wa s obtained by the patient. Patient provided verbal consent for a left total contact cast. This was applied in a well padded neutral position according standard protocol. The patient tolerated this well. Patient was also advised to keep this clean, dry, and intact until follow-up next week. I recommend application of advanced wound healing product to the right ankle. Prior authorization was confirmed. The indications, benefits, anticipated application and healing time management were reviewed in detail. Verbal consent was obtained in the procedure for today. Site was debrided and graft was applied according to standard protocol and was further secured with a Adaptic touch and Steri-Strips. Patient was admitted to hospital 11/14/20 for altered mental status where TCC was removed and culture of wound was obtained from left foot. Culture grew enterobacter cloacae, klebsiella oxytoca, corynebacterium striatum, and enterocccus faecalis. Dr Tello was contacted about cultures and he prescribed omnicef and lineozilid 12/02/20. Discussed importance of properly cleaning foot and protecting area when in shower as some of the bacteria she grew are commonly found in GI tract. It is noted she is already been undergoing a comprehensive wound healing plan and has delayed and nonhealing. She has had prior bone biopsies, wound culture, and intervention with infectious disease. She has suspected adequate vascular perfusion for healing per her recent noninvasive vascular studies 09/01/2020 with triphasic waveforms noted. Patient's hemoglobin A1c was 9.8 in August 2020. Offloading strongly recommended. She presents today ambulating in TCC unassisted. Optimal blood sugar control and increased protein intake also discussed. Discussed importance of having her meds with her especially when she is living at her daughters house her meds should be with her there and not at her house where they aren't accessible. All questions were answered and she was advised to call with any further questions or concerns. All signs and symptoms of local and systemic infection were discussed with the patient today. Follow up in 1 week. This note was generated with [employer] dictation software. It may contain incorrect words, spelling, and punctuation that were not noted in checking the note before signing.
[2020-12-23 08:29] VITALS: BP 190/89; PULSE 93; RESP 20; TEMP 36.5; BMI 31.1
--- NOTE | 2020-12-23 09:12 | PN.PCM_ITS ---
(1) Ulcer of right ankle Status: Chronic Qualifiers: Non-pressure ulcer stage: with fat layer exposed Qualified Code(s): L97.312 - Non-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 Code(s): L97.319 - Non-pressure chronic ulcer of right ankle with unspecified severity (2) Ulcer of left foot with muscle involvement without evidence of necrosis Status: Chronic Code(s): L97.525 - Non-pressure chronic ulcer of other part of left foot with muscle involvement without evidence of necrosis (3) Uncontrolled type II diabetes mellitus Status: Chronic Qualifiers: Glycemic state: with hyperglycemia Code(s): E11.65 - Type 2 diabetes mellitus with hyperglycemia (4) Obesity Status: Chronic Qualifiers: Code(s): E66.9 - Obesity, unspecified (5) Diabetic polyneuropathy Status: Chronic Qualifiers: Diabetes mellitus type: type 2 Code(s): E11.42 - 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 of Wound Date of Service: 12/23/20 Chief Complaint: Right ankle diabetic ulcer. left foot ulcer History of Wound: Patient is a 55-year-old female who presents to the clinic for follow-up of hospital stay for a left foot chronic ulceration. Patient had MRI on 09/01/2020 showing 1. Large 5.81 x 1.70 cm open skin defect/wound on the lateral plantaraspect of the foot contains fluid and debris and can be a infected. The investing fascia and the plantar aspect of the foot beneath the fourth metatarsal bone encloses the complex fluid collection, and there is no demonstrated intramuscular extension or contact with the overlying bony structures. 2. Mild cortical irregularity is present at the base and plantar and lateral aspect of the fifth metatarsal bone and cuboid which could be related to prior infection or sequela from previous trauma. 3. No active bone marrow edema or cortical erosion is seen to suggest. active osteomyelitis. Patient had an I&D performed in the hospital by Dr. Guadarrama on 09/08/2020. That time patient was noted to have infection to left foot wound with Staphylococcus and Enterobacter which was treated during her stay at the hospital and TCU. Patient has had this ulceration for quite some time. 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 Patient also was noted to have bilateral varus foot deformity. Patient has a noted history of poor compliance of medical recommendations. Patient presents to the office ambulating in [facility] unassisted. She states that she cannot do nonweightbearing with the crutches as she is afraid she will fall. Patient had [facility] PT that has since finished and patient states she never felt stable. Patient was noted to have course of antibiotics while in the hospital in August 2020. Since being discharged from the hospital August 2020 patient has missed several of her follow-up appointments including here at the wound care center as well as with her primary care physician. She states issues with transportation. Patient missed follow- up appointment with infectious disease on November 12, 2020. She states that she saw them 11/26/2020. She states he didn't do anything. . Patient has had issues with taking her insulin either with not having her medications on her not being able to obtain it from the pharmacy. Patient has had recent high and low sugar levels. Patient states that she did not go to the hospital or call anyone when she noticed extremely high or low blood sugars. Discussed with the patient the importance of proper wound blood glucose management and if any extreme numbers are seen to take them seriously and go to the emergency department. She was admitted to the hospital 11/14/20 for altered mental status. She was found to have had 2 mini strokes per patient. The TCC was removed at that time and patient was to resume wound vac. Culture was obtained in the hospital growing e nterobacter cloacae, klebsiella oxytoca, corynebacterium striatum, and enterococcus faecalis. This wasn't treated while in the hospital. Dr Tello was contacted and he started her on linezolid and omnicef 12/02/20. Patient also relates that she is largely nonweightbearing by sitting in a chair or on the couch she also uses a wheelchair at home. She states she moved back in with her daughter. She does admit to walking around without the boot to protect the total contact cast. She did break her total contact cast again this week. Discussed how important it is not to do this as racquet like cast has the potential to make her wound worse or create a new wound. She relates that the graft also came off of her ankle about 1 days ago as well. She does admit to external rotation of the lower extremities which could be a contributing factor to ulcer breakdown of the right lateral ankle. She also admits to having offloading boot that she does not wear at night as she states she kicks it off due to her restless leg syndrome. She relates that she has a in [place] and visits him for months at a time when she has the funds. This has contributed to her noncompliance. Patient also relates having ulceration to the right lateral ankle that began in the middle of September 2020 she believes that this started while sleeping with her restless leg syndrome. Patient relates that the wound has worsened beginning of October 2020. Especially after falling in a hole while walking in the yard where her foot and dressing got wet. Patient had an episode where her wound VAC battery but the VAC was left in place for 10 hours. Patient was made aware that leaving the wound VAC on without the machine on will be detrimental to her healing process. Patient relates that the wound VAC never has a good seal and does not feel like it is doing a job as it should Like to try other modalities. Patient expresses concern over losing her foot but seems reluctant to follow treatment recommendations. She does not seem willing or capable to follow instructions. Progress of Wound: improved left plantar wound improvement noted with no callus buildup and more muscle coverage noted. Improved right ankle wound improved with less depth noted and smaller size - Physical Exam Vital Signs Temp Pulse Resp BP 97.7 F L 93 20 H 190/89 H 12/23/20 08:29 12/23/20 08:29 12/23/20 08:29 12/23/20 08:29 General: Alert, Oriented x3 HEENT: Atraumatic Abdomen: Obese Extremities: No clubbing, No cyanosis, No edema, Capillary Refill Less than 3 Seconds, No Calf Tenderness Skin: Ulcer/ Wound - Right lateral ankle and plantar left foot. No malodor, erythema, purulence, probing to bone, streaking, or other signs of infection. Skin is atrophic and hairless. Granular base. Left plantar foot probes to muscle. Right lateral ankle probes to subcu. Wound Measurements and Assessment WC - Nurse 1 - General Ulcer Measurement Start: 12/09/20 08:58 Freq: Status: Active Protocol: Activity Type Activity Date Activity User E-Sign Co-Sign Detail Recorded Client Recorded Date Recorded By Document 12/23/20 08:29 DL [id number] 12/23/20 08:36 DL 12/23/20 08:29 Wound Center Nurse 1 [Ulcer Assessment] #17 R Lat Ankle -Current Size (cm) - Length 1.4 -Current Size (cm) - Width 1.3 -Current Size (cm) - Depth 0.1 -Total Square Cm 1.82 -Photo Taken No -Exudate Amt Medium -Exudate Type Serosanguineous -Wound Margin Distinct, Outline Attached -Granulation Amt Large (67-100%) -Granulation Quality K[place]ley -Necrosis Amt Small (1-33%) -Necrotic Tissue Type Adherent Slough -Structure Exposed N/A -Texture (Natacha-wound Skin Appearance) Scarring -Moisture (Natacha-wound Skin Appearance Dry/Scaly ) -Color (Natacha-wound Skin Appearance) No Abnormality -Temperature (Natacha-wound Skin No Abnormality Appearance) (Pt Warm) -Tenderness on Palpation (Natacha-wound No Skin Appearance) -Ulcer Cleansing Wound Cleanser -Foul Odor after Cleansing No -Anesthetic Used 4% Lidocaine Solution #16 L Plantar med foot -Current Size (cm) - Length 2.6 -Current Size (cm) - Width 2.9 -Current Size (cm) - Depth 1 -Total Square Cm 7.54 -Photo Taken No -Exudate Amt Medium -Exudate Type Serosanguineous -Wound Margin Thickened -Granulation Amt Large (67-100%) -Granulation Quality Red -Necrosis Amt Small (1-33%) -Necrotic Tissue Type Adherent Slough -Structure Exposed N/A -Texture (Natacha-wound Skin Appearance) Callus,Scarring -Moisture (Natacha-wound Skin Appearance No Abnormality ) -Color (Natacha-wound Skin Appearance) No Abnormality -Temperature (Natacha-wound Skin No Abnormality Appearance) (Pt Warm) -Tenderness on Palpation (Natacha-wound No Skin Appearance) -Ulcer Cleansing Wound Cleanser -Foul Odor after Cleansing No -Anesthetic Used 4% Lidocaine Solution [Edema Assessment] -Right Calf (cm) 35.6 -Right Ankle (cm) 20.5 -Left Calf (cm) 36.1 -Left Ankle (cm) 21.7 Musculoskeletal: No Tenderness to Palpation of Joints or Extremities, Muscle Wasting, - - Bilateral foot amputations Neurological: - - Decrease in epicritic sensation consistent with neuropathy Psych/Mental Status: Normal Affect, Appropriate Debridement Note Post-Debridement Measurements/Treatment WC - Nurse 2 - General Ulcer CM Notes Start: 12/09/20 08:58 Freq: Status: Active Protocol: Activity Type Activity Date Activity User E-Sign Co-Sign Detail Recorded Client Recorded Date Recorded By Document 12/09/20 09:17 [id number] 12/09/20 13:50 Document 12/16/20 10:37 [id number] 12/16/20 10:43 JF 12/09/20 12/16/20 09:17 10:37 Wound Center Nurse 2 #17 R Lat Ankle -Time 09:18 10:38 -Correct Patient Yes Yes -Correct Side, Site, Position Yes Yes -Correct Procedure Yes Yes -Procedure Performed Yes Yes -Type of Procedure Debridement Debridement -Clinical Debridement Subcutaneous Subcutaneous -Tissue Removed Subcutaneous Subcutaneous -Post Debridement (cm) - Length 2 1.6 -Post Debridement (cm) - Width 1.5 1.3 -Post Debridement (cm) - Depth 0.2 0.2 -Total Square (Post) (cm) 3.0 2.08 -Area of Debridement (cm) - Length 2.0 1.6 -Area of Debridement (cm) - Width 1.5 1.3 -Total Square (Area) (cm) 3.00 2.08 -Tunneling No No -Undermining/Tunneling No No -Circular Undermining No No -Wound/Ulcer Outcome Not Healed Not Healed -Ulcer Cleansing Rinsed/ Rinsed/ Irrigated with Irrigated with Saline Saline -Foul Odor after Cleansing No No -Bioengineered Tissue Yes Yes -Type of Bioengineered Tissue Apligraf Apligraf -Expiration Date 12/18/20 12/20/20 -Product Lot Number [id number] -Percent Used 100 100 -Lot number of Saline Used [id number] -Bleeding Controlled with Pressure Pressure -Offloading No No -Treatment Response Procedure Procedure Tolerated Well Tolerated Well -Debridement - Subq, 1st 20sq cm No No -Apply Skin Sub - 1st 25 sq cm - Legs 1 1 -Apligraf (per sq cm) 44 44 #16 L Plantar med foot -Time 09:18 10:40 -Correct Patient Yes Yes -Correct Side, Site, Position Yes Yes -Correct Procedure Yes Yes -Procedure Performed Yes Yes -Type of Procedure Debridement Debridement -Clinical Debridement Muscle / Fascia Muscle / Fascia -Tissue Removed Subcutaneous, Muscle,Fascia Muscle -Post Debridement (cm) - Length 3 3 -Post Debridement (cm) - Width 3.4 3 -Post Debridement (cm) - Depth 1.3 1.3 -Total Square (Post) (cm) 10.2 9 -Area of Debridement (cm) - Length 3 3 -Area of Debridement (cm) - Width 3.4 3 -Total Square (Area) (cm) 10.2 9 -Tunneling No No -Undermining/Tunneling No No -Circular Undermining No No -Wound/Ulcer Outcome Not Healed Not Healed -Ulcer Cleansing Wound Cleanser Rinsed/ Irrigated with Saline -Foul Odor after Cleansing No No -Bioengineered Tissue Yes No -Type of Bioengineered Tissue Apligraf -Expiration Date 12/18/20 -Product Lot Number [id number] -Percent Used 100 -Lot number of Saline Used [id number] -Bleeding Controlled with Pressure Pressure -Offloading Yes Yes -Type of Offloading Total Contact Total Contact Cast (TCC) - Cast (TCC) - Left ($) Left ($) -Treatment Response Procedure Tolerated Well -Debridement - Muscle / Fascia, 1st Yes Yes 20sq cm -Apply Skin Sub - 1st 25 sq cm - Feet 0 -Apligraf (per sq cm) 0 Pain Scale: 0-10 Numeric Is Patient Pain Free? Yes Yes - Nurse 3 - General Ulcer D/C NN Start: 12/09/20 08:58 Freq: Status: Active Protocol: Activity Type Activity Date Activity User E-Sign Co-Sign Detail Recorded Client Recorded Date Recorded By Document 12/16/20 10:58 [facility] [id number] 12/16/20 10:59 [facility] 12/16/20 10:58 Wound Care Nurse 3 #17 R Lat Ankle -Other Dressing APLIGRAPH -Primary Dressing Covered/Secured with Dry Gauze & Roll Gauze, Secured with Tape #16 L Plantar med foot -Other Dressing APLIGRAPH -Other Covering TCC UNDERCAST Right -Compression Wrap [place] Wrap Treatment Response Procedure Tolerated Well Pain Scale: 0-10 Numeric Is Patient Pain Free? Yes - Visit Discharge Discharge Condition Stable Ambulatory Status Wheelchair Transportation Private [facility] Facility Type Home Health Wound debrided: Lateral ankle Laterality: Right Wound Grade/Stage: Freedman 1 Type of Debridement: Excisional debridement Anesthesia Used: 4% Lidocaine Solution Depth: Down to and including healthy tissue Percentage of wound debrided: 100 Instrument Used: 3mm curette Tissue Removed: Tissue removed includes fibrous, devitalized, biofilm, and slough tissue Severity: Fat Layer Exposed Amount of bleeding with debridement: Mild Bleeding Controlled with: Pressure Patient tolerated procedure well - Additional Wound Wound debrided: Plantar foot Laterality: Left Wound Grade/Stage: Freedman 2 Anesthesia Used: 4% Lidocaine Solution Depth: to muscle Percentage of wound debrided: 100 Instrument Used: 3mm curette Tissue Removed: Tissue removed includes fibrous, devitalized, biofilm, and slough tissue Severity: Limited To Skin Breakdown Amount of bleeding with debridement: Mild Bleeding Controlled with: Pressure Patient tolerated procedure: Patient tolerated procedure well Assessment/Plan Active Problems (This Medical Record has been edited. Action required.) Ulcer of right ankle (Chronic) Ulcer of left foot with muscle involvement without evidence of necrosis (Chronic) Uncontrolled type II diabetes mellitus (Chronic) Obesity (Chronic) Diabetic polyneuropathy (Chronic) Assessment: Diabetic ulcer of right ankle -, grade 1. Diabetic ulcer plantar left foot- grade 2. Diabetic foot ulcer associated with type 2 diabetes mellitus. Hemoglobin A1c 9.17 Aug 2020. varus deformity bilateral lower extremities. malnutrition suspected. delayed healing. obesity Plan: The right lateral ankle wound and left foot plantar wound is noted to have improved in both depth and size. The left plantar foot ulceration is noted to have more muscle coverage than last week with no malodor or other signs of infection and no callus buildup. Discussed getting even up from office for contralateral limb from [facility] to assist in ambulation. Discussed using boot to protect total contact cast. Patient noted to have fractured the total contact cast again. She states she only does not wear the boot at night when she is going to the bathroom. Discussed how important is to wear the boot with every step she takes in total contact cast to prevent breaking of the cast. Discussed that breaking the cast can make the ulceration worse or create a new wound. Patient states that she could wet herself by putting the boot on before going back to middle the night. Discussed potentially sleeping in the boot to prevent this. Patient seems unwilling to comply with wearing the boot at all times when ambulating. Patient also relates that she is going on vacation to [facility] from 01/04/2021 2 01/08/2021. Discussed with the patient that it is imperative that she walk as little as possible obligation. Discussed that she has been making progress recently on her wounds I would hate to see her regress due to this vacation. Recommended that she takes her wheelchair with her achieve these ends. Discussed that we may not be able to place her in a total contact cast during her vacation especially if she continues to break them. Will readdress next week prior to her leaving on vacation. Discussed that given the improvement seen in 1 week with the total contact cast that we will continue this on the left foot. The right lateral ankle was approved for Apligraf #3 application today. We will continue with absorbent dressing to left foot under total contact cast. Bilateral ulcerations were debrided after verbal consent was obtained by the patient. Patient provided verbal consent for a left total contact cast. This was applied in a well padded neutral position according standard protocol. The patient tolerated this well. Patient was also advised to keep this clean, dry, and intact until follow-up next week. I recommend application of advanced wound healing product to the right ankle. Prior authorization was confirmed. The indications, benefits, anticipated application and healing time management were reviewed in detail. Verbal consent was obtained in the procedure for today. Site was debrided and graft was applied according to standard protocol and was further secured with a Adaptic touch and Steri-Strips. Patient was admitted to hospital 11/14/20 for altered mental status where TCC was removed and culture of wound was obtained from left foot. Culture grew enterobacter cloacae, klebsiella oxytoca, corynebacterium striatum, and enterocccus faecalis. Dr Tello was contacted about cultures and he prescribed omnicef and lineozilid 12/02/20. Discussed importance of properly cleaning foot and protecting area when in shower as some of the bacteria she grew are commonly found in GI tract. It is noted she is already been undergoing a comprehensive wound healing plan and has delayed and nonhealing. She has had prior bone biopsies, wound culture, and intervention with infectious disease. She has suspected adequate vascular perfusion for healing per her recent noninvasive vascular studies 09/01/2020 with triphasic waveforms noted. Patient's hemoglobin A1c was 9.8 in August 2020. Offloading strongly recommended. She presents today ambulating in TCC unassisted. Optimal blood sugar control and increased protein intake also discussed. Discussed importance of having her meds with her especially when she is living at her daughters house her meds should be with her there and not at her house where they aren't accessible. All questions were answered and she was advised to call with any further questions or concerns. All signs and symptoms of local and systemic infection were discussed with the patient today. Follow up in 1 week. This note was generated with [employer] software. It may contain incorrect words, spelling, and punctuation that were not noted in checking the note before signing.
== END 2021-01-07 23:59 ==
LOC: WC 08:30
PROVIDERS: PCP Family Medicine; Referring Provider Podiatrist; Visit Provider Podiatrist Foot & Ankle Surgery
DX: E11.621 Type 2 diabetes mellitus with foot ulcer (principal); L97.312 Non-pressure chronic ulcer of right ankle with fat layer exposed; L97.423 Non-pressure chronic ulcer of left heel and midfoot with necrosis of muscle; E11.65 Type 2 diabetes mellitus with hyperglycemia; E11.42 Type 2 diabetes mellitus with diabetic polyneuropathy; G25.81 Restless legs syndrome; E66.9 Obesity, unspecified; Z91.19 Patient's noncompliance with other medical treatment and regimen; Z79.4 Long term (current) use of insulin; Z86.73 Personal history of transient ischemic attack (TIA), and cerebral infarction without residual deficits
CPT/HCPCS: 11042; 11043; 15271; 29445; Q4101

== ENCOUNTER 2020-12-29 08:22 | Observation (INO) | payer MEDICARE, MEDICAID, SELFPAY ==
[2018-09-21 13:23] VITALS: BMI 29.3
[2020-12-29] VITALS (10 sets, daily range): BP systolic 118–147; BP diastolic 66–91; PULSE 75–96; RESP 15–21; TEMP 36.6–37.1; O2SAT 95–100; BMI 31.4; BMI 31.5
--- NOTE | 2020-12-29 08:50 | CT_ITS ---
STUDY: CT BRAIN WITHOUT CONTRAST REASON FOR EXAM: Female, 55 years old. Syncope, headache RADIATION DOSAGE (If Supplied By Facility): CTDIvol = ( 44.99 ) mGy, DLP = ( 796.11 ) mGycm TECHNIQUE: Transaxial CT imaging of the brain was performed without administration of intravenous contrast material. Individualized dose optimization techniques were used for this CT. COMPARISON: Comparison is made with prior study dated 11/14/2020. FINDINGS: Normal soft tissue structures. Normal calvarium. Normal size ventricles and extra-axial spaces for the patient''s age. Normal white matter tracts of the cerebral hemispheres. Tiny lacunae in the right internal capsule. Normal brainstem. Normal cerebellum. There is no intracranial hemorrhage. There are no findings of an acute ischemic infarction. Normal visualized paranasal sinuses. CT/Brain/Head without Contrast IMPRESSION: Tiny lacuna is seen in the right internal capsule. This was not seen on prior study. Electronically Signed: Ronnie Saavedra MD at 9:45 EDT , Service support ,
--- NOTE | 2020-12-29 08:51 | EKG12_ITS ---
Test Reason : SYNCOPE Blood Pressure : / mmHG Vent. Rate : 077 BPM Atrial Rate : 077 BPM P-R Int : 156 ms QRS Dur : 092 ms QT Int : 384 ms P-R-T Axes : 027 -05 044 degrees QTc Int : 434 ms Normal sinus rhythm Moderate voltage criteria for LVH, may be normal variant Cannot rule out Septal infarct (cited on or before 14-NOV-2020) Abnormal ECG Confirmed by MARIELENA DELVALLE, SINDY ([id number]), health editor KAROLINA DE LA O ([id number]) on 01/01/2021 12:25:57 PM Referred By: ANA LUISA Confirmed By:MARISOL PEGUERO MD
--- NOTE | 2020-12-29 08:51 | RAD_ITS ---
STUDY: X-RAY CHEST REASON FOR EXAM: Female, 55 years old. Weakness TECHNIQUE: Single AP portable view of the chest. COMPARISON: Comparison is made with prior study dated 11/14/2020. FINDINGS: EKG electrodes are seen. Mild elevation of the right hemidiaphragm. The lungs are clear. There is no demonstrated pleural abnormality. Normal size heart. Normal mediastinum and elvie. Normal visualized pulmonary arteries. Normal visualized aortic arch and descending thoracic aorta. There are diffuse degenerative changes of the visualized thoracic spine. Normal visualized ribs, clavicles, and shoulders. There is no demonstrated abnormality of the visualized soft tissue structures of the upper abdomen. RAD/Chest 1 View (Portable) IMPRESSION: No acute abnormality is seen. Electronically Signed: Ronnie Saavedra MD at 9:46 EDT , Service support ,
--- NOTE | 2020-12-29 08:53 | ED.VIS.GEN ---
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 frontal mild headache. Narrative: Patient states she got up this morning and felt okay. She walked down the steps and started feeling lightheaded. She remembers making breakfast and sitting down. She does not recall any details, think she passed out, and woke up on the floor. Her daughter arrived care home through the interview, states that her mom lives with her she was at work at the time when this happened, she received a phone call that she was not well and so she went right home and found her passed out on the floor, she woke up when she stimulated her. The patient provides very little useful information but is able to answer yes and no to most of my questions. She does admit that she has not been checking her blood sugars, has had polydipsia and polyuria for the last several days, but basically felt fine yesterday, her blood sugar was in the 400s per EMS prior to arrival here. She denies any recent illness. She does not feel like she injured herself from collapsing on her floor. She denies having any prodromal symptoms that she can remember other than feeling shaky all over and weak and lightheaded. She denies having any chest discomfort, headache beforehand although she has 1 now, or shortness of breath. She denies feeling any focal peripheral neurologic symptoms. She states she has a history of stroke but did not leave her with any residual deficits. She has a history of an ME and has a stent. Patient also has diabetic foot wounds/ulcerations, follows with wound care, was last seen 1 week ago and due tomorrow, she has a plaster cast on the left lower extremity for this, and a gauze dressing on the right. - Past Medical History (1) Anemia Status: Chronic (2) Anxiety and depression Status: Chronic (3) Atherosclerosis of [place] coronary artery of [place] heart without angina pectoris Status: Chronic (4) Debility Status: Chronic (5) Depression Status: Chronic (6) Diabetic infection of left foot Status: Chronic (7) Diabetic polyneuropathy Status: Chronic (8) Essential (primary) hypertension Status: Chronic (9) GERD (gastroesophageal reflux disease) Status: Chronic (10) HLD (hyperlipidemia) Status: Chronic (11) Hypertension Status: Chronic (12) RLS (restless legs syndrome) Status: Chronic (13) Uncontrolled type II diabetes mellitus Status: Chronic (14) History of coronary artery stent placement Status: Resolved Comment: PCI-DARA mid LAD w/ 2.25 x 16 mm Promus Synergy, DARA prox LAD w/ 2.5 x 12 mm Promus Synergy 09/21/2018 Past Medical History - Allergies and Home Meds Allergies/Adverse Reactions: Allergies Penicillins Allergy (Verified 11/14/20 08:30) Shortness of breath vancomycin Allergy (Verified 11/14/20 08:30) Itching metronidazole Adverse Reaction (Verified 11/14/20 08:30) Nausea OXYCONTIN Allergy (Uncoded 11/14/20 08:30) Shortness of breath Primary Care Physician: Raúl Eric MD [Primary Care Provider] - Surgical History: angioplasty - with stent., - - Severel R foot toe amputations and I+Ds, BL carpal tunnel surgery 1994, right shoulder surgery in 1994, section x2, most recently LLE I+D, Left foot ulcer debridement, cardiac stent Lives: With Family Smoking Status: Never smoker - Family History Paternal Family History: Reports: - - Patient states her father when she was 5 years old, denies known medical history, denies known cardiac history. Maternal Family History: Reports: Cancer - Patient had a brother who had testicular cancer; and later cancer in his stomach., Diabetes, Hypertension, - - Her mother at the age of 67 to a blood clot to the brain. She had had multiple strokes preceding that. Patient had 3 brothers who had bypass surgery in their 50s. Sibling Family History: Reports: - - She has one brother who is secondary to cancer and she does not know what kind of cancer he had. She also has 3 brothers with a history of cardiovascular disease, stents and coronary artery bypass grafting. Review of Systems General: Reports: Malaise - And lightheaded/shaky. See HPI.. Denies: Chills, Fever, Sweats Eyes: Denies: Visual changes - bilaterally, Diplopia ENT: Denies: Rhinorrhea, Sore throat Cardiovascular: Denies: Chest pain, Palpitations Respiratory: Denies: Dyspnea, Cough, Dyspnea on exertion Gastrointestinal: Denies: Abdominal pain, Nausea, Vomiting, Diarrhea, Melena, Hematochezia Genitourinary: Reports: Frequency. Denies: Dysuria, Hematuria Musculoskeletal: Denies: Neck pain, Back pain, Swelling, Extremity Pain Skin: Reports: Wounds - Both lower extremities distally. Denies: Rash, Abscess Neurological: Reports: Headache. Denies: Weakness, Numbness Endocrine: Reports: Polyuria, Polydipsia. Denies: Heat intolerance, Cold intolerance Allergy: Denies: Uticaria, Swelling of the mouth, Swelling of the tongue Physical Exam Vital Signs/Narrative: Vital Signs Temp Pulse Resp BP Pulse Ox 12/29/20 08:24 98.7 F 89 21 H 118/75 98 Inital Vital Signs reviewed: Yes General: Well nourished, Well developed, Obese, No Acute Distress - Somnolent, opens eyes to voice and follows commands Head: Normocephalic, Atraumatic Eyes: Perrl, EOMI. Negative for: Scleral icterus ENT: Moist mucous membranes, No rhinorrhea Neck: Supple, Nontender, No lymphadenopathy, No JVD Cardiovascular: Regular rate, Regular rhythm, No murmurs. Negative for: Tachycardia Respiratory: No distress, CTA bilaterally, Chest nontender, - - no splinting w/ deep inspiration Abdomen: Soft, Nontender, Nondistended, Normal bowel sounds Back: Nontender, Normal Inspection. Negative for: CVA tenderness Extremities: Nontender, No edema. Negative for: Calf Tenderness Skin: Normal color, No rash, - - Right lateral ankle wound, relatively superficial, about 1-2 cm in diameter, no tenderness or signs of infection/abscess/discharge. Left lower extremity is in a plaster cast to the middle lower leg; toes not visible/accessible. Neurological: Alert - But somnolent, see above, Oriented x3, Cranial nerves II-XII grossly intact, Normal Strength, Normal Sensation Psychological: Normal affect, Normal Mood Diagnostic/Tx/Re-eval Impressions Brain CT 12/29/20 08:50 IMPRESSION: Tiny lacuna is seen in the right internal capsule. This was not seen on prior study. Electronically Signed: Ronnie Saavedra MD at 9:45 EDT , Service support , Chest X-Ray 12/29/20 08:51 IMPRESSION: No acute abnormality is seen. Electronically Signed: Ronnie Saavedra MD at 9:46 EDT , Service support , 12/29/20 08:50 Brain/Head without Contrast [CT] Stat 12/29/20 08:51 Chest 1 View (Portable) [RAD] Stat 12/29/20 09:00 Mucosa - Nose SARS-CoV-2 Antigen (Rapid) - Final Laboratory Results 12/29/20 12/29/20 12/29/20 08:30 08:30 08:30 WBC 7.7 RBC 3.95 L Hgb 11.0 L Hct 34.4 L MCV 87.1 MCH 27.8 MCHC 32.0 RDW Std Deviation 42.8 RDW Coeff of Fior 13.3 Plt Count 303 MPV 11.9 Immature Gran % (Auto) 0.500 Neut % (Auto) 72.1 H Lymph % (Auto) 20.0 [place] % (Auto) 5.2 Eos % (Auto) 1.6 Baso % (Auto) 0.6 Absolute Neuts (auto) 5.6 Absolute Lymphs (auto) 1.54 Nucleated RBC % 0 Sodium 138 Potassium 3.7 Chloride 105 Carbon Dioxide 28.0 Anion Gap 5 BUN 28 H Creatinine 1.67 H Estim Creat Clear Calc 35.63 Est GFR (MDRD) Af Amer 41 L Est GFR (MDRD) Non-Af 34 L BUN/Creatinine Ratio 16.8 Glucose 395 H Calcium 9.1 Troponin I < 0.015 Urine Color Urine Clarity Urine pH Ur Specific [place] Urine Protein Urine Glucose (UA) Urine Ketones Urine Occult Blood Urine Nitrite Urine Bilirubin Urine Urobilinogen Ur Leukocyte Esterase Urine RBC Urine WBC Ur Squamous Epith Cells Amorphous Sediment Urine Bacteria Urine Mucus Ethyl Alcohol < 3.0 12/29/20 10:05 WBC RBC Hgb Hct MCV MCH MCHC RDW Std Deviation RDW Coeff of Fior Plt Count MPV Immature Gran % (Auto) Neut % (Auto) Lymph % (Auto) [place] % (Auto) Eos % (Auto) Baso % (Auto) Absolute Neuts (auto) Absolute Lymphs (auto) Nucleated RBC % Sodium Potassium Chloride Carbon Dioxide Anion Gap BUN Creatinine Estim Creat Clear Calc Est GFR (MDRD) Af Amer Est GFR (MDRD) Non-Af BUN/Creatinine Ratio Glucose Calcium Troponin I Urine Color Yellow Urine Clarity Clear Urine pH 5.0 Ur Specific [place] 1.015 Urine Protein 500 H Urine Glucose (UA) 1000 H Urine Ketones Negative Urine Occult Blood 25 H Urine Nitrite Negative Urine Bilirubin Negative Urine Urobilinogen Normal Ur Leukocyte Esterase Negative Urine RBC 0 SEEN Urine WBC 0 SEEN Ur Squamous Epith Cells 0-5 SEEN Amorphous Sediment 2+ Urine Bacteria 0 SEEN Urine Mucus 0 SEEN Ethyl Alcohol - Rhythm Strip Rhythm Strip: Sinus Rhythm Rate: 77 Ectopy: None - EKG Initial EKG Interpretation: Sinus Rhythm, Inverted T-Waves - V4-6, S-T Elevation - V1-3, also seen to similar degree on prior EKG; no recip STD, Non-Specific ST Changes - inferolat, - - similar to prior, has chronic T-wave flattening so difficult to assess if subtle T-wave inversions in lateral precordial leads are a significant change - Medical Decision Making Patient is somnolent not able to stand so orthostatics were done in a limited fashion and were unremarkable. For her hyperglycemia she was given a liter of IV normal saline in addition to 14 units of subcutaneous lispro. Other than the above EKG abnormalities, the rest of her work-up is unremarkable. Rapid Covid test is negative, her renal insufficiency is similar to baseline. A lacunar infarct was seen in the right internal capsule on the CT, this was not seen on the previous CT, however her prior visit 1.5 months ago with an MRI showing acute versus subacute infarct in the basal ganglia likely is the cause of this. That was a TIA along with left-sided symptoms that are resolved now. There were no symptoms that made this very suspicious for cardiac etiology, however she does have a history of structural heart disease, is noncompliant with following her blood sugars with a history of uncontrolled type 2 diabetes that is documented before this visit, and for these reasons in addition to the fact that her syncope is unexplained I believe she likely has higher cardiac risk than she may appear to so I discussed with hospitalist for admission and further evaluation. ED Disposition - Plan for ED Patient: Disposition: Acute Care Hospital [facility] Diagnosis: Syncope, Acute electrocardiogram changes, Chronic renal insufficiency, Hyperglycemia due to type 2 diabetes mellitus, Uncontrolled type II diabetes mellitus Referrals: Raúl Eric MD [Primary Care Provider] -
[2020-12-29 09:05] LABS: Absolute Lymphocyte Count 1.54 X10^3/uL (0.83-4.51); Absolute Neutrophil Count 5.6 X10^3/uL (2.0-7.7); Basophil# 0.05 X10^3/uL; Basophil% 0.6 % (0-1); Eosinophil# 0.12 X10^3/uL; Eosinophils% 1.6 % (0-5); Hematocrit 34.4 % (37-47); Lymphocyte # 1.54 X10^3/ul (4.0); Mean Corpuscular Hgb 27.8 pg (27.0-32.0); Mean Corpuscular Volume 87.1 fL (81-99); Mean Platelet Vol. 11.9 fl (6.2-12.0); Monocyte% 5.2 % (0-10); NRBC Flagged by Analyzer 0 % (0-5); Neutrophil # 5.56 X10^3/uL (2.7-7.7); Neutrophil % 72.1 % (47-70); Platelet Count 303 K/mm3 (150-450); RBC Distribution Width CV 13.3 % (11.6-14.6); RBC Distribution Width SD 42.8 fl (35.1-43.9); Red Blood Count 3.95 M/mm3 (4.2-5.4); White Blood Count 7.7 K/mm3 (4.4-11.0)
[2020-12-29] MEDS: 0.9% Normal Saline 1,000 ML 1000 ML IV (09:06)
[2020-12-29 09:18] LABS: Alcohol, Blood (Medical)-Serum < 3.0 mg/dL
[2020-12-29 09:23] LABS: Anion Gap 5 (5-15); BUN 28 mg/dL (7-18); BUN/Creat Ratio 16.8 RATIO (10-20); Calcium,Total 9.1 mg/dL (8.5-10.1); Chloride 105 mmol/L (98-107); Creatinine, Serum 1.67 mg/dL (0.55-1.02); EST Glomerular Filtration Rate 34 mL/min (>60); Est Glom Filt Rate - Afr Amer 41 mL/min (>60); Estimated Creatinine Clearance 35.63 ml/min; Glucose 395 mg/dL (74-106); Potassium 3.7 mmol/L (3.5-5.1); Sodium Level 138 mmol/L (136-145)
[2020-12-29] MEDS: Insulin Lispro 100 UNIT/ML INSULN.PEN 14 UNIT SC (09:49)
[2020-12-29 10:11] LABS: Bacteria 0 SEEN /hpf (None Seen); Mucous, Urine 0 SEEN /hpf (<or=2+); Red Blood Cells-Urine 0 SEEN /hpf (0-5); White Blood Cells 0 SEEN /hpf (0-5)
[2020-12-29 10:12] LABS: Color, Urine Yellow (Yellow); Glucose, Dipstick 1000 mg/dl (Normal); Ketone-Dipstick Negative (Negative); Leukocyte Esterase-Dipstick Negative /ul (Negative); Nitrite-Dipstick Negative (Negative); Occult Blood-Urine 25 /ul (Negative); Protein-Dipstick 500 mg/dl (Negative); Specific Gravity, Urine 1.015 (1.002-1.030); Urine Bilirubin Dipstick Negative (Negative); Urine Clarity Clear (Clear); Urine Urobilinogen Normal (Normal)
[2020-12-29 10:20] LABS: Squamous Epithelial Cells - UA 0-5 SEEN /hpf (5-10)
[2020-12-29 10:21] LABS: Amorphous Sediment 2+
--- NOTE | 2020-12-29 10:31 | HP.PCM_ITS ---
History of Present Illness Date of Admission: 12/29/20 Chief Complaint: syncope The patient is a 55 year old F with a PMH as outlined who was admitted with a complaitn of syncope. Patient couldnt remember any details. Daughter came home after she found out her mom had passed out. Tiffany is a noncompliant diabetic, and had been having symptoms of high blood sugars for several days. EKG showed mild T wave inversions. She also has a history of diabetic foot wounds and ulcers and states she has been following up with wound care. Blood sugar was in the 400s on admission. She denied any chest pain, though she admitted to a headache and she denied any shortness of breath. She denied any focal neurological symptoms. Review of systems otherwise negative. Vitals in the ED were essentially unremarkable. Chemistry showed creatinine of 1.67 and A1c of 13.1 with sodium of 138 and bicarb of 28. Blood glucose was 395. CBC showed hemoglobin of 11 with WBC of 7.7 and platelets of 303. CT of the brain showed no acute ST changes and chest x-ray showed no acute abnormality. She has been admitted to be managed for syncope likely due to dehydration from poorly controlled diabetes mellitus. [] Past Medical History Past Medical History (Chronic Problems): Chronic Problems (This Medical Record has been edited. Action required.) Ulcer of right ankle (Chronic) Chronic renal insufficiency (Chronic) Ulcer of left foot with muscle involvement without evidence of necrosis (Chronic) Diabetic infection of left foot (Chronic) Anemia (Chronic) Anxiety and depression (Chronic) RLS (restless legs syndrome) (Chronic) Uncontrolled type II diabetes mellitus (Chronic) Obesity (Chronic) Debility (Chronic) Foot ulcer, left (Chronic) Cellulitis of left foot (Chronic) Coronary artery disease (Chronic) Hypertension (Chronic) Diabetic polyneuropathy (Chronic) GERD (gastroesophageal reflux disease) (Chronic) Depression (Chronic) Anxiety (Chronic) Diabetes mellitus (Chronic) Atherosclerosis of [place] coronary artery of [place] heart without angina pectoris (Chronic) Essential (primary) hypertension (Chronic) HLD (hyperlipidemia) (Chronic) Medical History: Medical History (This Medical Record has been edited. Action required.) Atherosclerosis of [place] coronary artery of [place] heart without angina pectoris (Chronic) I25.10 NSTEMI (non-ST elevated myocardial infarction) (Resolved) Onset Date: 09/20/18 I21.4 Essential (primary) hypertension (Chronic) I10 HLD (hyperlipidemia) (Chronic) E78.5 Abscess of right lower leg L02.415 diabetic ulcer abscess right lateral malleolus Acquired varus deformity of left foot M21.172 Acquired varus deformity of right foot M21.171 Anxiety F41.9 Back pain, chronic M54.9, G89.29 Cellulitis of foot, left L03.116 cellulitis and abscess of the left foot with possible osteomyelitis Chronic renal failure N18.9 Chronic ulcer of left foot with fat layer exposed L97.522 Chronic ulcer of left foot with fat layer exposed L97.522 Chronic ulcer of left foot with necrosis of muscle L97.523 Delayed wound healing T14.8XXD Delayed wound healing T14.8XXD Delayed wound healing T14.8XXD Depression F32.9 Diabetic foot ulcer associated with type 2 diabetes mellitus E11.621, L97.509 Diabetic polyneuropathy E11.42 Stage II?3 Diabetic ulcer of right ankle E11.622, L97.319 diabetic ulcer abscess right lateral malleolus GERD (gastroesophageal reflux disease) K21.9 Hypomagnesemia E83.42 Malnutrition E46 Non-compliance Z91.19 Normocytic anemia D64.9 Obesity (BMI 30.0-34.9) E66.9 Osteomyelitis of left foot M86.9 RLS (restless legs syndrome) Type 2 diabetes mellitus with diabetic polyneuropathy E11.42 Type 2 diabetes mellitus with diabetic polyneuropathy E11.42 Type II diabetes mellitus, uncontrolled E11.65 Ulcer of right foot with fat layer exposed L97.512 distal hallux Ulcer of right lower extremity with fat layer exposed L97.912 Chest pain (Resolved) R07.9 Ischemic cardiomyopathy I25.5 EF 45% Necrotizing soft tissue infection (Resolved) M79.89 Severe sepsis (Resolved) A41.9, R65.20 Hemoglobin A1c greater than 9.0% (Inactive) R73.09 12.2 Allergies Penicillins Allergy (Verified 11/14/20 08:30) Shortness of breath vancomycin Allergy (Verified 11/14/20 08:30) Itching metronidazole Adverse Reaction (Verified 11/14/20 08:30) Nausea OXYCONTIN Allergy (Uncoded 11/14/20 08:30) Shortness of breath Home Medications: Ambulatory Orders Medication Instructions Recorded Gabapentin [Neurontin] 900 mg PO TIDCM 09/20/18 atorvastatin 80 mg tablet 80 mg PO QHS #90 tab 11/30/19 clopidogrel 75 mg tablet 75 mg PO DAILY #90 tab 11/30/19 Insulin Lispro [Humalog KwikPen] 20 unit SC TIDCM 08/31/20 Insulin Glargine [Lantus SoloStar 35 units SC DAILY 09/12/20 Pen] Iron Polysaccharide Complex 150 mg PO DAILYCM 09/12/20 [Ferrex 150] Isosorbide Mononitrate [Isosorbide 30 mg PO DAILY 09/12/20 Mononitrate ER] Paroxetine [Paxil] 20 mg PO QHS 09/12/20 Pramipexole Di-HCl [Mirapex] 1.5 mg PO BID 09/12/20 Acetaminophen [Tylenol] 1,000 mg PO Q6H PRN PRN tab 09/19/20 Peg 400/Hypromellose/Glycerin 2 drp EACH EYE Q1H PRN bottle 09/19/20 [Artificial Tears] Polyethylene Glycol 3350 [Miralax] 17 gm PO DAILY 11/14/20 Aspirin [Aspirin, Baby] 81 mg PO DAILY@0800 tab.chew 11/15/20 Losartan Potassium [Cozaar] 1 tablet PO DAILY 12/29/20 Oxycodone HCl/Acetaminophen 1 each PO BID 12/29/20 [Oxycodone-Acetaminophen 5-325] Surgical History: Surgical History (This Medical Record has been edited. 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 Maternal History Items: Cancer - Patient had a brother who had testicular cancer; and later cancer in his stomach., Diabetes, Hypertension, - - Her mother at the age of 67 to a blood clot to the brain. She had had multiple strokes pre ceding that. Patient had 3 brothers who had bypass surgery in their 50s. Sibling History Items: - - She has one brother who is secondary to cancer and she does not know what kind of cancer he had. She also has 3 brothers with a history of cardiovascular disease, stents and coronary artery bypass grafting. Review of Systems Constitutional: Reports: Anorexia, Malaise, Weakness, Fatigue Eyes: Denies: Blurred vision HEENT: Denies: Head Aches, Sinus Congestion, Sinus Drainage Cardiovascular: Denies: Chest Pain, Chest Pressure, Chest Tightness, Light Headedness, Orthopnea, Palpitations Respiratory: Denies: Cough, Shortness of Breath, Shortness of breath at rest, Shortness of breath upon exertion, Sputum production Gastrointestinal: Denies: Abdominal Pain, Nausea, Vomiting Genitourinary: Denies: Dysuria Musculoskeletal: Denies: Joint Pain, Joint Tenderness Skin: Denies: Rash, Wounds Neurological: Reports: - - syncope. Denies: Balance problems, Focal weakness, Numbness, Tingling Psychiatric: Denies: Anxiety, Depression, Homicidal Ideations, Suicidal Ideations Hematologic/ Lymphatic: Denies: Easy Bruising, Easy Bleeding VTE Information - Inpt Only VTE Present on Admission: No VTE Pharm Prophylaxis ordered?: Yes Patient Problems: Active and Suspected Problems (This Medical Record has been edited. Action required.) Syncope (Acute) Acute electrocardiogram changes (Acute) Hyperglycemia due to type 2 diabetes mellitus (Acute) - Physical Exam Vitals/I&O's: Vital Signs Temp Pulse Resp BP Pulse Ox 98.7 F 80 21 H 118/68 98 12/29/20 08:24 12/29/20 09:04 12/29/20 08:24 12/29/20 09:04 12/29/20 08:24 Oxygen Delivery Method Room Air Weight: 194 lb 10.691 oz Body Mass Index (BMI) 31.4 Finger Stick Blood Glucose 133 General: Alert, Oriented x3, Cooperative, Lethargic HEENT: Atraumatic, PERRLA, EOMI, Normocephalic Oral: Dry Mucosa Neck: Supple, No JVD, Negative Carotid Bruits Lungs: Clear to auscultation, Normal air movement Cardiovascular: Regular rate, No murmurs Abdomen: Bowel Sounds Present, Soft, Non Tender Extremities: No edema, Capillary Refill Less than 3 Seconds Skin: No rashes, No breakdown Musculoskeletal: No Tenderness to Palpation of Joints or Extremities Neurological: Cranial nerves II-XII grossly intact Psych/Mental Status: Normal Affect, Appropriate, Alert and oriented to time, place, person, mood and affect Microbiology Past 72 Hours 12/29/20 09:00 Mucosa - Nose SARS-CoV-2 Antigen (Rapid) - Final Laboratory Results 12/29/20 08:30: WBC 7.7, RBC 3.95 L, Hgb 11.0 L, Hct 34.4 L, MCV 87.1, MCH 27.8, MCHC 32.0, RDW Std Deviation 42.8, RDW Coeff of Fior 13.3, Plt Count 303, MPV 11.9, Immature Gran % (Auto) 0.500, Neut % (Auto) 72.1 H, Lymph % (Auto) 20.0, [place] % (Auto) 5.2, Eos % (Auto) 1.6, Baso % (Auto) 0.6, Absolute Neuts (auto) 5.6, Absolute Lymphs (auto) 1.54, Nucleated RBC % 0 12/29/20 08:30: Sodium 138, Potassium 3.7, Chloride 105, Carbon Dioxide 28.0, Anion Gap 5, BUN 28 H, Creatinine 1.67 H, Estim Creat Clear Calc 35.63, Est GFR (MDRD) Af Amer 41 L, Est GFR (MDRD) Non-Af 34 L, BUN/Creatinine Ratio 16.8, Glucose 395 H, Calcium 9.1, Troponin I < 0.015 12/29/20 08:30: Ethyl Alcohol < 3.0 12/29/20 10:05: Urine Color Yellow, Urine Clarity Clear, Urine pH 5.0, Ur Specific [place] 1.015, Urine Protein 500 H, Urine Glucose (UA) 1000 H, Urine Ketones Negative, Urine Occult Blood 25 H, Urine Nitrite Negative, Urine Bilirubin Negative, Urine Urobilinogen Normal, Ur Leukocyte Esterase Negative, Urine RBC 0 SEEN, Urine WBC 0 SEEN, Ur Squamous Epith Cells 0-5 SEEN, Amorphous Sediment 2+, Urine Bacteria 0 SEEN, Urine Mucus 0 SEEN Assessment/Plan All Active Problems (This Medical Record has been edited. Action required.) Syncope (Acute) Acute electrocardiogram changes (Acute) Hyperglycemia due to type 2 diabetes mellitus (Acute) NSTEMI (non-ST elevated myocardial infarction) (Resolved 09/20/18) History of coronary artery stent placement (Resolved 09/21/18) Abscess of left foot (Resolved) Cellulitis of left foot (Resolved) Chest pain (Resolved) Diabetic foot infection (Resolved) Diarrhea (Resolved) Enteritis, Yersinia enterocolitica (Resolved) Hyperglycemia (Resolved) Intractable nausea and vomiting (Resolved) Malnutrition (Resolved) Necrotizing soft tissue infection (Resolved) Severe sepsis (Resolved) 55 y/o admitted with a complaint of syncope #SYncope * likely due to dehydration, as patient had not been eating or drinking well * Admit to PCU with telemetry. * check orthostatics * hydrate wtih IVF NS * PT/OT consult * fall precautions * cycle troponins. To do stress test tomorrow as she had very subtle EKG changes * #Poorly controlled type 2 diabetes mellitus with hyperglycemia * Blood glucose was 400 on admission. She admits to not being compliant with her long-acting insulin and states she does not check her sugar at home at home. She only uses a short acting insulin. * A1c checked is 13.5. * Her long-acting insulin. Insulin sliding scale. Accu-Cheks AC at bedtime. * Consult diabetes education. * #Diabetic foot ulcer * has her LLE in a cast. * Also has a healing wound on the right ankle with full she follows up at wound care. * Consult wound care. * #CKD stage IIIb: Creatinine is 1.67 which is around her baseline. Will hydrate gently with IV fluids and monitor. #Hyperlipidemia #History of ischemic cardiomyopathy: Has known EF of 45%. Will be gentle with hydration. On aspirin and Plavix as well as Imdur #Pretension: On losartan. DVT prophylaxis: Lovenox CODE STATUS: Full code * Patient counseled extensively about different types of CODE STATUS including full code, DNR CCA and DNR CCA. Patient elects to be full code. * Total [id number] time 17 minutes. OBSV E&M: [id number] Initial observation care L3
--- NOTE | 2020-12-29 12:21 | ECHOD_ITS ---
Reason For Study: Syncope Procedure This was a 2D Doppler, Color Flow transthoracic echocardiogram. Exam performed portable in patient room. Left Ventricle Normal LV size. Left ventricular systolic function is normal. The estimated ejection fraction is 55 %. Stage 1 diastolic dysfunction. No regional wall motion abnormalities noted. Right Ventricle Normal RV size. Normal systolic function. Atria Normal left atrium. Normal right atrium. Mitral Valve Normal mitral valve. Mild (1+) eccentric mitral valve insufficiency. Tricuspid Valve Normal tricuspid valve. Mild (1+) tricuspid valve insufficiency. Aortic Valve Normal aortic valve. Trisinus/trileaflet aortic valve. Pulmonic Valve Normal pulmonic valve. Great Vessels Normal aortic root. The pulmonary artery is normal size. Normal inferior vena cava. Pericardium/Pleural No pericardial effusion. MMode/2D Measurements & Calculations LVIDd: 4.9 cm IVSd: 0.98 cm LA dimension: 3.9 cm LVIDs: 3.5 cm LVPWd: 1.3 cm FS: 29.6 % LAV(MOD-bp): 59.0 ml LA A4 area: 20.6 cm2 RA A4 area: 12.3 cm2 LAV(MOD-bp) Indexed: 29.8 ml/m2 LAV(MOD-sp2): 50.5 ml LAV(MOD-sp4): 57.6 ml Time Measurements MV dec time: 0.22 sec Doppler Measurements & Calculations MV E max rhys: 70.1 cm/sec Lat Peak E' Rhys: 4.3 cm/sec Med Peak E' Rhys: 4.7 cm/sec MV A max rhys: 103.0 cm/sec E/E' lat: 16.5 E/E' med: 14.9 MV E/A: 0.68 MV V2 max: 111.7 cm/sec MV P1/2t max rhys: 96.3 cm/sec Ao V2 max: 107.3 cm/sec MV max P.0 mmHg MV P1/2t: 61.6 msec Ao max P.6 mmHg MV V2 mean: 61.2 cm/sec MV dec slope: 457.6 cm/sec2 MV mean P.8 mmHg MVA(P1/2t): 3.6 cm2 MV V2 VTI: 25.3 cm LV V1 max: 81.4 cm/sec PA V2 max: 104.0 cm/sec TR max rhys: 198.7 cm/sec LV V1 max P.7 mmHg TR max P.8 mmHg Interpretation Summary Normal LV size. Left ventricular systolic function is normal. The estimated ejection fraction is 55 %. Stage 1 diastolic dysfunction. Structurally normal valves. Ordering Physician: Rachel Okeefe Referring Physician: Raúl Eric Performed By: Juancarlos Sands RCS
[2020-12-29] MEDS: 0.9% Normal Saline 1,000 ML 125 ML IV ×2 (12:52→20:57)
[2020-12-29 13:05] LABS: Bedside Glucose 110 mg/dL (70-110)
[2020-12-29 13:50] LABS: Hemoglobin A1c 13.1 % (3.8-5.6)
--- NOTE | 2020-12-29 15:15 | NURSING ---
wound photo: right lateral ankle
--- NOTE | 2020-12-29 15:18 | NURSING ---
wound photo: left plantar foot
--- NOTE | 2020-12-29 15:21 | NURSING ---
Was asked to see patient for wounds to the left plantar foot and the right lateral ankle. Pt has been following with Dr Cuevas at the wound healing center. Pt has a contact cast in place to the left foot. the wound to the right lateral ankle is currently TALITA. Pt has been getting Apligraf applications. Pt states I move so much in my sleep they just come off. This nurse called and talked with Clifford at the wound center to find out when patient is to be seen next at the wound center. Pt has an appt with Dr Cuevas tomorrow morning at 1030. It is unlikely pt would be discharged prior to this time. Talked with Dr Cuevas who recommended the contact cast be removed today so the wound can be assessed. This nurse removed the contact cast. there was a very slight malodor noted, but most likely d/t the moisture in the foam from the drainage. no periwound erythema noted. very small amount of fibrous slough noted in the wound bed. cleansed wounds with soap and water. pat dry. applied a NS wet to dry dressing to the left plantar foot and applied hydrogel to the right lateral ankle. covered both with dry dressings and wrapped with kerlix and MYLA wraps. pt tolerated well. see wound photos.
[2020-12-29 16:36] LABS: Bedside Glucose 225 mg/dL (70-110)
[2020-12-29] MEDS: Insulin Lispro 100 UNIT/ML INSULN.PEN 20 UNIT SC (17:24)
[2020-12-29] MEDS: Insulin Lispro 100 UNIT/ML INSULN.PEN SC ×2 (17:25→20:56)
[2020-12-29] MEDS: Gabapentin 300 MG Capsule 900 MG PO (17:27)
[2020-12-29] MEDS: oxyCODONE 5 MG Tablet PO (20:55)
[2020-12-29] MEDS: Atorvastatin Calcium 80 MG Tablet PO (20:56)
[2020-12-29] MEDS: Pramipexole Di-HCl 1 MG Tablet 1.5 MG PO (20:58)
[2020-12-29] MEDS: Paroxetine 20 MG Tablet PO (20:59)
[2020-12-29 21:05] LABS: Bedside Glucose 350 mg/dL (70-110)
[2020-12-30] VITALS (14 sets, daily range): BP systolic 115–191; BP diastolic 58–91; PULSE 71–100; RESP 14–18; TEMP 36.3–37.1; O2SAT 96–98
[2020-12-30 05:59] LABS: Absolute Neutrophil Count 4.7 X10^3/uL (2.0-7.7); Basophil# 0.03 X10^3/uL; Basophil% 0.4 % (0-1); Eosinophil# 0.14 X10^3/uL; Eosinophils% 1.9 % (0-5); Hematocrit 30.2 % (37-47); Hemoglobin 9.6 g/dL (12.0-15.0); Lymphocyte % 27.5 % (19-41); Mean Corp Hgb Conc 31.8 g/dL (32-36); Mean Corpuscular Hgb 27.8 pg (27.0-32.0); Mean Corpuscular Volume 87.5 fL (81-99); Mean Platelet Vol. 11.6 fl (6.2-12.0); Monocyte% 5.5 % (0-10); NRBC Flagged by Analyzer 0 % (0-5); Neutrophil # 4.67 X10^3/uL (2.7-7.7); Neutrophil % 64.4 % (47-70); Platelet Count 249 K/mm3 (150-450); RBC Distribution Width CV 13.6 % (11.6-14.6); RBC Distribution Width SD 42.5 fl (35.1-43.9); Red Blood Count 3.45 M/mm3 (4.2-5.4); White Blood Count 7.3 K/mm3 (4.4-11.0)
[2020-12-30 06:23] LABS: Anion Gap 6 (5-15); BUN 29 mg/dL (7-18); BUN/Creat Ratio 26.1 RATIO (10-20); Calcium,Total 8.6 mg/dL (8.5-10.1); Chloride 111 mmol/L (98-107); Creatinine, Serum 1.11 mg/dL (0.55-1.02); EST Glomerular Filtration Rate 54 mL/min (>60); Est Glom Filt Rate - Afr Amer 66 mL/min (>60); Estimated Creatinine Clearance 53.61 ml/min; Glucose 212 mg/dL (74-106); Potassium 3.7 mmol/L (3.5-5.1); Sodium Level 142 mmol/L (136-145)
--- NOTE | 2020-12-30 06:35 | EKG12_ITS ---
Test Reason : AM EKG Blood Pressure : / mmHG Vent. Rate : 073 BPM Atrial Rate : 073 BPM P-R Int : 162 ms QRS Dur : 086 ms QT Int : 410 ms P-R-T Axes : 038 002 055 degrees QTc Int : 451 ms Normal sinus rhythm Normal ECG When compared with ECG of 29-DEC-2020 09:02, MANUAL COMPARISON REQUIRED, DATA IS UNCONFIRMED Confirmed by OTTO DELVALLE, DOMINIQUE ([id number]), senior technical editor HARINI PHAM ([id number]) on 12/31/2020 10:14:37 AM Referred By: BILL Confirmed By:DOMINIQUE MENJIVAR MD
[2020-12-30] MEDS: Losartan Potassium 25 MG Tablet PO (06:45)
[2020-12-30] MEDS: Clopidogrel Bisulfate 75 MG Tablet PO (06:53)
[2020-12-30] MEDS: Aspirin 81 MG TAB.CHEW PO (06:53)
[2020-12-30 06:55] LABS: Bedside Glucose 227 mg/dL (70-110)
--- NOTE | 2020-12-30 11:05 | NURSING ---
Student nurse with instructor obtained bp again. Remains elevated. Complains of headache. primary RN aware of elevated blood pressure.
[2020-12-30] MEDS: Pramipexole Di-HCl 1 MG Tablet 1.5 MG PO ×2 (11:15→21:14)
[2020-12-30] MEDS: Iron Polysaccharide Complex 150 MG CAPSULE PO (11:16)
[2020-12-30] MEDS: Gabapentin 300 MG Capsule 900 MG PO ×2 (11:17→17:43)
[2020-12-30] MEDS: Isosorbide Mononitrate 30 MG Tablet PO (11:17)
[2020-12-30] MEDS: oxyCODONE 5 MG Tablet PO ×2 (11:18→21:12)
[2020-12-30 11:35] LABS: Bedside Glucose 340 mg/dL (70-110)
[2020-12-30] MEDS: hydrALAZINE 20 MG/ML Vial 10 MG IV (11:47)
[2020-12-30] MEDS: 0.9% Saline Lock 10 ML Syringe IV (11:47)
--- NOTE | 2020-12-30 13:08 | STRESSREP ---
Stress Test Report Pharmacologic myocardial perfusion stress test. 55-year-old lady with a history of chest pain. Stress protocol: Resting EKG demonstrates normal sinus rhythm with a rate of 76 bpm normal intervals are noted resting blood pressure is 152/94 mmHg. 0.4 mg of regadenoson was infused per usual protocol followed by rapid intravenous saline flush injection continuous EKG monitoring was performed. The patient maintained sinus rhythm throughout the recording. At rest there were no ST or T wave changes noted to suggest abnormal flow reserve at peak infusion nonspecific ST changes were noted. The resting blood pressure was 152/94 and remained the same. Myocardial perfusion protocol. 11.9 mCi of technetium 99m sestamibi was injected at rest. 0.4 mg of regadenoson was infused per usual protocol. At peak infusion 33.1 mCi of technetium 99m sestamibi was injected stress images were obtained stress and rest images were reconstructed and compared in the short axis vertical long horizontal long axis. Gated images were also obtained Perfusion SPECT analysis: Review of the stress images demonstrate a moderate zone in the mid anterior wall with reduced perfusion. The rest of the ray appear to be well perfused. The resting images demonstrate mild to moderate improvement in this area suggestive of anterior ischemia. No previous infarct is noted. Gated SPECT analysis: The gated ejection fraction is 51%. Conclusion: Abnormal myocardial perfusion test with evidence of anterior ischemia. Preserved ejection fraction.
--- NOTE | 2020-12-30 13:25 | NURSING ---
Student nurse documentation reviewed.
[2020-12-30] MEDS: Insulin Lispro 100 UNIT/ML INSULN.PEN 20 UNIT SC ×2 (14:57→17:43)
[2020-12-30] MEDS: Insulin Lispro 100 UNIT/ML INSULN.PEN SC ×3 (14:58→21:18)
--- NOTE | 2020-12-30 16:03 | CASEMGMT ---
KELSIE CM in to complete LOPEZ Form with patient. KELSIE IRELAND explained LOPEZ form, patient voiced understanding. Patient signed LOPEZ form and filed in chart. Patient provided with copy of signed LOPEZ form. Patient had no further questions or concerns at this time.
--- NOTE | 2020-12-30 16:19 | PCM.PN.HOSP ---
Patient Problems: Active and Suspected Problems (This Medical Record has been edited. Action required.) Syncope (Acute) Acute electrocardiogram changes (Acute) Hyperglycemia due to type 2 diabetes mellitus (Acute) Subjective: Patient seen and examined. She had no complaints this morning and felt well. Review of systems otherwise negative. She has remained hemodynamically stable. Vitals/I&O's: Vital Signs Temp Pulse Resp BP Pulse Ox 98.7 F 95 18 115/58 L 98 12/30/20 15:05 12/30/20 15:05 12/30/20 15:05 12/30/20 15:05 12/30/20 15:05 Oxygen Delivery Method Room Air Weight: 195 lb 5.273 oz Body Mass Index (BMI) 31.5 Finger Stick Blood Glucose 133 Intake and Output for Last 24 Hours 12/28/20 12/29/20 12/30/20 23:59 23:59 23:59 Intake Total 2480 / 2720 1600 / 1600 Balance 2480 / 2720 1600 / 1600 General: Alert, Oriented x3, Cooperative HEENT: Atraumatic, PERRLA, EOMI, Normocephalic Oral: Dry Mucosa Neck: Supple, No JVD, Negative Carotid Bruits Lungs: Clear to auscultation, Normal air movement Cardiovascular: Regular rate, No murmurs Abdomen: Bowel Sounds Present, Soft, Non Tender Extremities: No edema, Capillary Refill Less than 3 Seconds Skin: No rashes, No breakdown Musculoskeletal: No Tenderness to Palpation of Joints or Extremities Neurological: Cranial nerves II-XII grossly intact Psych/Mental Status: Normal Affect, Appropriate, Alert and oriented to time, place, person, mood and affect Microbiology Past 72 Hours 12/29/20 09:00 Mucosa - Nose SARS-CoV-2 Antigen (Rapid) - Final Laboratory Results 12/29/20 16:32: POC Glucose 225 H 12/29/20 19:08: Troponin I < 0.015 12/29/20 20:54: POC Glucose 350 H 12/30/20 05:34: WBC 7.3, RBC 3.45 L, Hgb 9.6 L, Hct 30.2 L, MCV 87.5, MCH 27.8, MCHC 31.8 L, RDW Std Deviation 42.5, RDW Coeff of Fior 13.6, Plt Count 249, MPV 11.6, Immature Gran % (Auto) 0.300, Neut % (Auto) 64.4, Lymph % (Auto) 27.5, Sibley % (Auto) 5.5, Eos % (Auto) 1.9, Baso % (Auto) 0.4, Absolute Neuts (auto) 4.7, Absolute Lymphs (auto) 2.00, Nucleated RBC % 0 12/30/20 05:34: Sodium 142, Potassium 3.7, Chloride 111 H, Carbon Dioxide 25.0, Anion Gap 6, BUN 29 H, Creatinine 1.11 H, Estim Creat Clear Calc 53.61, Est GFR (MDRD) Af Amer 66, Est GFR (MDRD) Non-Af 54 L, BUN/Creatinine Ratio 26.1 H, Glucose 212 H, Calcium 8.6 12/30/20 06:49: POC Glucose 227 H 12/30/20 11:28: POC Glucose 340 H Current Medications Acetaminophen (Acetaminophen 500 Mg Tablet) 1,000 mg PO Q6H PRN PRN PRN Reason: Pain Score 1-10 Aspirin (Aspirin 81 Mg Tab.Chew) 81 mg PO DAILY@0800 [facility] Last Admin: 12/30/20 06:53 Dose: 81 mg Documented by: Atorvastatin Calcium (Atorvastatin Calcium 80 Mg Tablet) 80 mg PO QHS [facility] Last Admin: 12/29/20 20:56 Dose: 80 mg Documented by: Clopidogrel Bisulfate (Clopidogrel Bisulfate 75 Mg Tablet) 75 mg PO DAILY [facility] Last Admin: 12/30/20 06:53 Dose: 75 mg Documented by: Diphenhydramine HCl (Diphenhydramine 50 Mg/Ml Syringe) 25 mg IV Q6H PRN PRN PRN Reason: ITCHING Enoxaparin Sodium (Enoxaparin 40 Mg/0.4 Ml Syringe) 40 mg SC DAILY [facility] Last Admin: 12/30/20 11:10 Dose: Not Given Documented by: Gabapentin (Gabapentin 300 Mg Capsule) 900 mg PO TIDCM [facility] Last Admin: 12/30/20 11:31 Dose: Not Given Documented by: Hydralazine HCl (Hydralazine 20 Mg/Ml Vial) 10 mg IV Q6H PRN PRN PRN Reason: BP >160/100 Last Admin: 12/30/20 11:47 Dose: 10 mg Documented by: Sodium Chloride () 250 mls @ 15 mls/hr IV .[id number] PRN PRN Reason: Saline Flush Sodium Chloride () 250 mls @ 15 mls/hr IV .[id number] PRN PRN Reason: Additional IVPB Infusion Insulin Glargine (Insulin Glargine 100 Units/Ml Pen) 35 units SC DAILY [facility] Last Admin: 12/30/20 15:00 Dose: 35 u Documented by: Insulin Human Lispro (Insulin Lispro 100 Unit/Ml Insuln.Pen) 20 unit SC TIDCM [facility] Last Admin: 12/30/20 14:57 Dose: 20 u Documented by: Insulin Human Lispro (Insulin Lispro 100 Unit/Ml Insuln.Pen) 0 unit SC ACHS [facility]; Protocol Last Admin: 12/30/20 14:58 Dose: 12 u Documented by: Isosorbide Mononitrate (Isosorbide Mononitrate 30 Mg Tablet) 30 mg PO DAILY [facility] Last Admin: 12/30/20 11:17 Dose: 30 mg Documented by: Losartan Potassium (Losartan Potassium 25 Mg Tablet) 25 mg PO DAILY [facility] Last Admin: 12/30/20 06:45 Dose: 25 mg Documented by: Nitroglycerin (Nitroglycerin (Inpatient Use) 0.4 Mg Tab.Subl) 0.4 mg SL Q5M PRN PRN Reason: CARDIAC/CHEST PAIN Nutritional Formula ([facility]utritional [facility] (Ted) Packet) [facility] Last Admin: 12/30/20 11:50 Dose: 1 packet Documented by: Ondansetron HCl (Ondansetron 4 Mg/2 Ml Vial) 4 mg IV Q8H PRN PRN PRN Reason: NAUSEA/VOMITING Oxycodone HCl (Oxycodone 5 Mg Tablet) 5 mg PO BID [facility] Last Admin: 12/30/20 11:18 Dose: 5 mg Documented by: Paroxetine HCl (Paroxetine 20 Mg Tablet) 20 mg PO QHS [facility] Last Admin: 12/29/20 20:59 Dose: 20 mg Documented by: Polyethylene Glycol (Polyethylene Glycol 3350 17 Gm Packet) 17 gm PO DAILY [facility] Last Admin: 12/30/20 11:11 Dose: Not Given Documented by: Polysaccharide Iron Complex (Iron Polysaccharide Complex 150 Mg Capsule) 150 mg PO DAILY [facility] Last Admin: 12/30/20 11:16 Dose: 150 mg Documented by: Pramipexole Dihydrochloride (Pramipexole Di-Hcl 1 Mg Tablet) 1.5 mg PO BID TAB Last Admin: 12/30/20 11:15 Dose: 1.5 mg Documented by: Sodium Chloride (0.9% Saline Lock 10 Ml Syringe) 10 - 40 ml IV UD PRN PRN Reason: SALINE FLUSH Last Admin: 12/30/20 11:47 Dose: 10 ml Documented by: STROKE Vital Signs/Narrative: Vital Signs Temp Pulse Resp BP Pulse Ox 12/30/20 15:05 98.7 F 95 18 115/58 L 98 12/30/20 13:45 97.7 F L 82 16 121/66 H 97 Medical Necessity - Tobacco Use Smoking Status: Never smoker Assessment/Plan All Active Problems (This Medical Record has been edited. Action required.) Syncope (Acute) Acute electrocardiogram changes (Acute) Hyperglycemia due to type 2 diabetes mellitus (Acute) NSTEMI (non-ST elevated myocardial infarction) (Resolved 09/20/18) History of coronary artery stent placement (Resolved 09/21/18) Abscess of left foot (Resolved) Cellulitis of left foot (Resolved) Chest pain (Resolved) Diabetic foot infection (Resolved) Diarrhea (Resolved) Enteritis, Yersinia enterocolitica (Resolved) Hyperglycemia (Resolved) Intractable nausea and vomiting (Resolved) Malnutrition (Resolved) Necrotizing soft tissue infection (Resolved) Severe sepsis (Resolved) 55 y/o admitted with a complaint of syncope #SYncope resolved. Orthostatics were negative PT/OT on board fall precautions #Abnormal stress test Troponins were negative. However she had very subtle EKG changes so stress test was done today which showed signs of anterior ischemia. Cardiology consulted. SubLingual nitroglycerin as needed. #Poorly controlled type 2 diabetes mellitus with hyperglycemia To noncompliance. Lantus 35 units daily resumed. This is her home dose. Continue insulin sliding scale. Accu-Cheks AC at bedtime. counseled on the need for compliance. #Diabetic foot ulcer has her LLE in a cast. Also has a healing wound on the right ankle with full she follows up at wound care. Consult wound care. #CKD stage IIIb: stable. Cr today is 1.11 #Hyperlipidemia: on atorvastatin #History of ischemic cardiomyopathy: Has known EF of 45%. On aspirin and Plavix as well as Imdur #Hypertension: On losartan. DVT prophylaxis: Lovenox CODE STATUS: Full code OBSV E&M: 92156 Subsequent observation care L2
--- NOTE | 2020-12-30 16:31 | CASEMGMT ---
[facility], the following are in-network tertiary facilities: [facility], [facility], [facility], [facility], [facility], [facility], [employer], and . Mary Ann IGLESIAS CM
[2020-12-30 17:35] LABS: Bedside Glucose > 500 mg/dL (70-110)
--- NOTE | 2020-12-30 17:41 | CON.PCM_ITS ---
Reason for Consult Date of Consultation: 12/30/20 Reason for Consultation: Syncopal episode and abnormal stress test History of Present Illness: The patient is a 55 year old F who presented to the emergency room after she had a syncopal episode. She apparently was eating a mini burger when she passed out. This was unwitnessed and she does not know for what period of time. At the time she was brought to the emergency room her blood sugar was over 400. She ruled out for myocardial infarction she underwent a stress test which demonstrated evidence of anterior ischemia. She is denies any chest pain no paroxysmal nocturnal dyspnea or pedal edema she has had no neck arm or jaw discomfort to suggest angina. EKG demonstrated normal sinus mechanism with no acute changes. She was scheduled for and underwent a stress test this morning which demonstrated evidence of anterior ischemia. She does have a previously placed stent in the mid and proximal left anterior descending artery. In addition she does have a history of hypertension, hyperlipidemia, and type 2 diabetes mellitus. [] Past Medical History Allergies/Adverse Reactions: Allergies Penicillins Allergy (Verified 11/14/20 08:30) Shortness of breath vancomycin Allergy (Verified 11/14/20 08:30) Itching metronidazole Adverse Reaction (Verified 11/14/20 08:30) Nausea OXYCONTIN Allergy (Uncoded 11/14/20 08:30) Shortness of breath Home Medications: Ambulatory Orders Medication Instructions Recorded Gabapentin [Neurontin] 900 mg PO TIDCM 09/20/18 atorvastatin 80 mg tablet 80 mg PO QHS #90 tab 11/30/19 clopidogrel 75 mg tablet 75 mg PO DAILY #90 tab 11/30/19 Insulin Lispro [Humalog KwikPen] 20 unit SC TIDCM 08/31/20 Insulin Glargine [Lantus SoloStar 35 units SC DAILY 09/12/20 Pen] Iron Polysaccharide Complex 150 mg PO DAILYCM 09/12/20 [Ferrex 150] Isosorbide Mononitrate [Isosorbide 30 mg PO DAILY 09/12/20 Mononitrate ER] Paroxetine [Paxil] 20 mg PO QHS 09/12/20 Pramipexole Di-HCl [Mirapex] 1.5 mg PO BID 09/12/20 Acetaminophen [Tylenol] 1,000 mg PO Q6H PRN PRN tab 09/19/20 Peg 400/Hypromellose/Glycerin 2 drp EACH EYE Q1H PRN bottle 09/19/20 [Artificial Tears] Polyethylene Glycol 3350 [Miralax] 17 gm PO DAILY 11/14/20 Aspirin [Aspirin, Baby] 81 mg PO DAILY@0800 tab.chew 11/15/20 Losartan Potassium [Cozaar] 1 tablet PO DAILY 12/29/20 Oxycodone HCl/Acetaminophen 1 each PO BID 12/29/20 [Oxycodone-Acetaminophen 5-325] Past Medical History (Chronic Problems): Chronic Problems (This Medical Record has been edited. Action required.) Ulcer of right ankle (Chronic) Chronic renal insufficiency (Chronic) Ulcer of left foot with muscle involvement without evidence of necrosis (Chronic) Diabetic infection of left foot (Chronic) Anemia (Chronic) Anxiety and depression (Chronic) RLS (restless legs syndrome) (Chronic) Uncontrolled type II diabetes mellitus (Chronic) Obesity (Chronic) Debility (Chronic) Foot ulcer, left (Chronic) Cellulitis of left foot (Chronic) Coronary artery disease (Chronic) Hypertension (Chronic) Diabetic polyneuropathy (Chronic) GERD (gastroesophageal reflux disease) (Chronic) Depression (Chronic) Anxiety (Chronic) Diabetes mellitus (Chronic) Atherosclerosis of [place] coronary artery of [place] heart without angina pectoris (Chronic) Essential (primary) hypertension (Chronic) HLD (hyperlipidemia) (Chronic) Surgical History: angioplasty - with stent., - - Severel R foot toe amputations and I+Ds, BL carpal tunnel surgery 1994, right shoulder surgery in 1994, section x2, most recently LLE I+D, Left foot ulcer debridement, cardiac stent Psychiatric History: Anxiety, Depression DATA DEVELOPER History: No pertinent DATA DEVELOPER history - *Family History Paternal History Items: - - Patient states her father when she was 5 years old, denies known medical history, denies known cardiac history. Maternal History Items: Cancer - Patient had a brother who had testicular cancer; and later cancer in his stomach., Diabetes, Hypertension, - - Her mother at the age of 67 to a blood clot to the brain. She had had multiple strokes preceding that. Patient had 3 brothers who had bypass surgery in their 50s. Sibling History Items: - - She has one brother who is secondary to cancer and she does not know what kind of cancer he had. She also has 3 brothers with a history of cardiovascular disease, stents and coronary artery bypass grafting. Lives: With Family Smoking Status: Never smoker Alcohol: None Drugs: None Review of Systems - Review of Systems General: Denies: Fever, Night Sweats, Fatigue HEENT: Denies: Vision Change Cardiovascular: Reports: Syncope. Denies: Chest Discomfort, Shortness of Breath, Orthopnea, PND, Peripheral Edema, Palpitations, Lightheadedness, Dizziness, Near Syncope Respiratory: Denies: Cough, Sputum Production, Hemoptysis Gastrointestinal: Denies: Hematemesis, Hematochezia, Melena Genitourinary: Denies: Dysuria, Hematuria Skin: Denies: Rash Psychiatric: Denies: Anxiety Endocrine: Denies: Excessive Sweating Subjectve: Middle-aged lady in no distress Objective: Vital Signs Temp Pulse Resp BP Pulse Ox 98.7 F 98 18 115/58 L 98 12/30/20 15:05 12/30/20 16:00 12/30/20 15:05 12/30/20 15:05 12/30/20 15:05 Oxygen Delivery Method Room Air Weight: 195 lb 5.273 oz Body Mass Index (BMI) 31.5 Finger Stick Blood Glucose 133 Intake and Output for Last 24 Hours 12/28/20 12/29/20 12/30/20 23:59 23:59 23:59 Intake Total 2480 / 2720 1600 / 1600 Balance 2480 / 2720 1600 / 1600 General: Awake, Alert, Oriented x 3 HEENT: PERRL, EOMI, Sclera Non Icteric Neck: Supple, Good ROM, No Lymph Node Enlargement Lungs: Clear to auscultation Cardiovascular: Regular Rhythm, Normal S1, Normal S2, No Murmurs, No Rubs, No Gallops Vascular: No Carotid Bruits, Normal Femoral Pulses, Normal Radial Pulses, Normal Dorsalis Pedal Pulse, Normal Posterior Tibial Pulses Abdomen: Bowel Sounds Present, Soft, Non Tender, No HSM, No Organomegaly Extremities: No Cyanosis, No Clubbing, No edema Musculoskeletal: No Erythema Skin: No Rashes Lymphatic: No Lymph Node Enlargement Neurological: No Focal Motor or Sensory Deficit 12/29/20 19:08: Troponin I < 0.015 12/30/20 05:34: WBC 7.3, RBC 3.45 L, Hgb 9.6 L, Hct 30.2 L, MCV 87.5, MCH 27.8, MCHC 31.8 L, Plt Count 249, MPV 11.6, Immature Gran % (Auto) 0.300, Neut % (Auto) 64.4, Lymph % (Auto) 27.5, Petroleum % (Auto) 5.5, Eos % (Auto) 1.9, Baso % (Auto) 0.4, Absolute Neuts (auto) 4.7, Nucleated RBC % 0 12/30/20 05:34: Sodium 142, Potassium 3.7, Chloride 111 H, Carbon Dioxide 25.0, Anion Gap 6, BUN 29 H, Creatinine 1.11 H, Est GFR (MDRD) Af Amer 66, Est GFR (MDRD) Non-Af 54 L, BUN/Creatinine Ratio 26.1 H, Glucose 212 H, Calcium 8.6 Rhythm: EKG: Normal sinus rhythm with no acute changes ECHO: Stress Test: Cardiac Cath: PCI: CT Surgery: Holter monitor: EPS: PPM: CXR: Chest CT Scan: Assessment/Plan 1. Syncope * The etiology of the above is unclear at this particular time. She does have known coronary artery disease but she does have preserved left ventricular systolic function cardiac enzymes were noted to be normal. She did unfortunately have a myocardial perfusion stress test demonstrating evidence of anterior ischemia. Though it is unlikely that this is an arrhythmic event it probably needs to be excluded. * Would recommend work-up with a left heart catheterization. The risk benefits and alternatives of been explained to her she understands and agrees to proceed. * 2. Coronary artery disease * she has had previous angioplasty and stenting of the left anterior descending artery. My recommendation for now would be for her to proceed with a left he art catheterization. The risk benefits alternatives of been explained to her she understands and agrees to proceed. * 3. Hypertension * Her blood pressure has been under good control. Orthostatics with thus far negative. I would recommend we continue her on the current medication with the losartan. * 4. Hyperlipidemia * She will continue with aggressive risk factor modification. * * Thank you for allowing me to participate in the care of your patient. Please don't hesitate to call if any issues arise.
[2020-12-30 19:26] LABS: Bedside Glucose 366 mg/dL (70-110)
[2020-12-30] MEDS: Atorvastatin Calcium 80 MG Tablet PO (21:14)
[2020-12-30] MEDS: Paroxetine 20 MG Tablet PO (21:15)
[2020-12-30 22:00] LABS: Bedside Glucose 262 mg/dL (70-110)
[2020-12-31] VITALS (20 sets, daily range): BP systolic 140–183; BP diastolic 68–102; PULSE 69–94; RESP 14–18; TEMP 36.4–36.9; O2SAT 95–100
--- NOTE | 2020-12-31 05:55 | EKG12_ITS ---
Test Reason : AM EKG Blood Pressure : / mmHG Vent. Rate : 077 BPM Atrial Rate : 077 BPM P-R Int : 152 ms QRS Dur : 090 ms QT Int : 402 ms P-R-T Axes : 047 -04 019 degrees QTc Int : 454 ms Normal sinus rhythm Nonspecific T wave abnormality Abnormal ECG When compared with ECG of 30-DEC-2020 06:57, MANUAL COMPARISON REQUIRED, DATA IS UNCONFIRMED Confirmed by MARIELENA DELVALLE, SINDY ([id number]), editor index KAROLINA DE LA O ([id number]) on 01/01/2021 12:42:14 PM Referred By: BILL Confirmed By:MARISOL PEGUERO MD
[2020-12-31] MEDS: Isosorbide Mononitrate 30 MG Tablet PO (06:34)
[2020-12-31] MEDS: Aspirin 81 MG TAB.CHEW PO (06:34)
[2020-12-31] MEDS: Losartan Potassium 25 MG Tablet PO (06:34)
[2020-12-31] MEDS: Clopidogrel Bisulfate 75 MG Tablet PO (06:34)
[2020-12-31 06:46] LABS: Bedside Glucose 201 mg/dL (70-110)
[2020-12-31 10:55] LABS: Bedside Glucose 249 mg/dL (70-110)
--- NOTE | 2020-12-31 12:34 | PN.CARD_ITS ---
Subjectve: Patient seen and evaluated. Objective: Vital Signs Temp Pulse Resp BP Pulse Ox 97.6 F L 77 14 158/76 H 97 12/31/20 10:40 12/31/20 11:00 12/31/20 10:40 12/31/20 10:40 12/31/20 10:40 Oxygen Delivery Method Room Air Weight: 195 lb 5.273 oz Body Mass Index (BMI) 31.5 Finger Stick Blood Glucose 133 Intake and Output for Last 24 Hours 12/29/20 12/30/20 12/31/20 23:59 23:59 23:59 Intake Total 2480 / 2720 1960 / 2160 260 / 260 Balance 2480 / 2720 1960 / 2160 260 / 260 General: Awake, Alert, Oriented x 3 HEENT: PERRL, EOMI, Sclera Non Icteric Neck: Supple, Good ROM, No Lymph Node Enlargement Lungs: Clear to auscultation Cardiovascular: Regular Rhythm, Normal S1, Normal S2, No Murmurs, No Rubs, No Gallops Rhythm: EKG: ECHO: Stress Test: Cardiac Cath: PCI: CT Surgery: Holter monitor: EPS: PPM: CXR: Chest CT Scan: Medical Necessity - Tobacco Use Smoking Status: Never smoker Assessment/Plan 1. Syncope * The etiology of the above is unclear at this particular time. She does have known coronary artery disease but she does have preserved left ventricular systolic function cardiac enzymes were noted to be normal. She did unfortunately have a myocardial perfusion stress test demonstrating evidence of anterior ischemia. * Cardiac catheterization demonstrated the following: Normal left main coronary artery. Left anterior descending artery with previously placed stent in the proximal LAD patent: Stent in the mid LAD patent: Area in the mid to distal LAD with 95% stenosis noted. Nondominant left circumflex artery with mid 60% stenosis Dominant right coronary artery with no significant disease Preserved left ventricular systolic function We will proceed with angioplasty of this vessel. 2. Coronary artery disease * she has had previous angioplasty and stenting of the left anterior descending artery. The results are as noted above. 3. Hypertension * Her blood pressure has been under good control. Orthostatics with thus far negative. I would recommend we continue her on the current medication with the losartan. * 4. Hyperlipidemia * She will continue with aggressive risk factor modification. * * Thank you for allowing me to participate in the care of your patient. Please don't hesitate to call if any issues arise.
--- NOTE | 2020-12-31 12:44 | PCM.PN.HOSP ---
Patient Problems: Active and Suspected Problems (This Medical Record has been edited. Action required.) Syncope (Acute) Acute electrocardiogram changes (Acute) Hyperglycemia due to type 2 diabetes mellitus (Acute) Subjective: Patient seen and examined. Review of systems otherwise negative. She is for cardiac cath today. Vitals/I&O's: Vital Signs Temp Pulse Resp BP Pulse Ox 97.6 F L 77 14 158/76 H 97 12/31/20 10:40 12/31/20 11:00 12/31/20 10:40 12/31/20 10:40 12/31/20 10:40 Oxygen Delivery Method Room Air Weight: 195 lb 5.273 oz Body Mass Index (BMI) 31.5 Finger Stick Blood Glucose 133 Intake and Output for Last 24 Hours 12/29/20 12/30/20 12/31/20 23:59 23:59 23:59 Intake Total 2480 / 2720 1960 / 2160 260 / 260 Balance 2480 / 2720 1960 / 2160 260 / 260 General: Alert, Oriented x3, Cooperative HEENT: Atraumatic, PERRLA, EOMI, Normocephalic Oral: Dry Mucosa Neck: Supple, No JVD, Negative Carotid Bruits Lungs: Clear to auscultation, Normal air movement Cardiovascular: Regular rate, No murmurs Abdomen: Bowel Sounds Present, Soft, Non Tender Extremities: No edema, Capillary Refill Less than 3 Seconds Skin: No rashes, No breakdown Musculoskeletal: No Tenderness to Palpation of Joints or Extremities Neurological: Cranial nerves II-XII grossly intact Psych/Mental Status: Normal Affect, Appropriate, Alert and oriented to time, place, person, mood and affect Microbiology Past 72 Hours 12/29/20 09:00 Mucosa - Nose SARS-CoV-2 Antigen (Rapid) - Final Laboratory Results 12/30/20 17:28: POC Glucose > 500 H* 12/30/20 19:21: POC Glucose 366 H 12/30/20 21:18: POC Glucose 262 H 12/31/20 06:41: POC Glucose 201 H 12/31/20 10:47: POC Glucose 249 H Current Medications Acetaminophen (Acetaminophen 500 Mg Tablet) 1,000 mg PO Q6H PRN PRN PRN Reason: Pain Score 1-10 Aspirin (Aspirin 81 Mg Tab.Chew) 81 mg PO DAILY@0800 [facility] Last Admin: 12/31/20 06:34 Dose: 81 mg Documented by: Atorvastatin Calcium (Atorvastatin Calcium 80 Mg Tablet) 80 mg PO QHS [facility] Last Admin: 12/30/20 21:14 Dose: 80 mg Documented by: Clopidogrel Bisulfate (Clopidogrel Bisulfate 75 Mg Tablet) 75 mg PO DAILY [facility] Last Admin: 12/31/20 06:34 Dose: 75 mg Documented by: Diphenhydramine HCl (Diphenhydramine 50 Mg/Ml Syringe) 25 mg IV Q6H PRN PRN PRN Reason: ITCHING Enoxaparin Sodium (Enoxaparin 40 Mg/0.4 Ml Syringe) 40 mg SC DAILY [facility] Last Admin: 12/31/20 10:49 Dose: Not Given Documented by: Gabapentin (Gabapentin 300 Mg Capsule) 900 mg PO TIDCM [facility] Last Admin: 12/31/20 10:48 Dose: Not Given Documented by: Hydralazine HCl (Hydralazine 20 Mg/Ml Vial) 10 mg IV Q6H PRN PRN PRN Reason: BP >160/100 Last Admin: 12/30/20 11:47 Dose: 10 mg Documented by: Sodium Chloride () 250 mls @ 15 mls/hr IV .[id number] PRN PRN Reason: Saline Flush Sodium Chloride () 250 mls @ 15 mls/hr IV .[id number] PRN PRN Reason: Additional IVPB Infusion Sodium Chloride () 1,000 mls @ 0 mls/hr IV .Q0M [facility] Insulin Glargine (Insulin Glargine 100 Units/Ml Pen) 35 units SC DAILY [facility] Last Admin: 12/30/20 15:00 Dose: 35 u Documented by: Insulin Human Lispro (Insulin Lispro 100 Unit/Ml Insuln.Pen) 20 unit SC [facility] Last Admin: 12/31/20 10:48 Dose: Not Given Documented by: Insulin Human Lispro (Insulin Lispro 100 Unit/Ml Insuln.Pen) 0 unit SC [facility]; Protocol Last Admin: 12/31/20 10:49 Dose: Not Given Documented by: Isosorbide Mononitrate (Isosorbide Mononitrate 30 Mg Tablet) 30 mg PO DAILY [facility] Last Admin: 12/31/20 06:34 Dose: 30 mg Documented by: Losartan Potassium (Losartan Potassium 25 Mg Tablet) 25 mg PO DAILY [facility] Last Admin: 12/31/20 06:34 Dose: 25 mg Documented by: Nitroglycerin (Nitroglycerin (Inpatient Use) 0.4 Mg Tab.Subl) 0.4 mg SL Q5M PRN PRN Reason: CARDIAC/CHEST PAIN Nutritional Formula (Nutritional Supplement (Ted) Packet) 1 packet PO BIDCM [facility] Last Admin: 12/30/20 17:44 Dose: 1 packet Documented by: Ondansetron HCl (Ondansetron 4 Mg/2 Ml Vial) 4 mg IV Q8H PRN PRN PRN Reason: NAUSEA/VOMITING Oxycodone HCl (Oxycodone 5 Mg Tablet) 5 mg PO BID [facility] Last Admin: 12/30/20 21:12 Dose: 5 mg Documented by: Paroxetine HCl (Paroxetine 20 Mg Tablet) 20 mg PO QHS [facility] Last Admin: 12/30/20 21:15 Dose: 20 mg Documented by: Polyethylene Glycol (Polyethylene Glycol 3350 17 Gm Packet) 17 gm PO DAILY [facility] Last Admin: 12/30/20 11:11 Dose: Not Given Documented by: Polysaccharide Iron Complex (Iron Polysaccharide Complex 150 Mg Capsule) 150 mg PO DAILY [facility] Last Admin: 12/30/20 11:16 Dose: 150 mg Documented by: Pramipexole Dihydrochloride (Pramipexole Di-Hcl 1 Mg Tablet) 1.5 mg PO BID [facility] Last Admin: 12/30/20 21:14 Dose: 1.5 mg Documented by: Sodium Chloride (0.9% Saline Lock 10 Ml Syringe) 10 - 40 ml IV UD PRN PRN Reason: SALINE FLUSH Last Admin: 12/30/20 11:47 Dose: 10 ml Documented by: STROKE Vital Signs/Narrative: Vital Signs Temp Pulse Resp BP Pulse Ox 12/31/20 11:00 77 12/31/20 10:40 97.6 F L 75 14 158/76 H 97 Medical Necessity - Tobacco Use Smoking Status: Never smoker Assessment/Plan All Active Problems (This Medical Record has been edited. Action required.) Syncope (Acute) Acute electrocardiogram changes (Acute) Hyperglycemia due to type 2 diabetes mellitus (Acute) NSTEMI (non-ST elevated myocardial infarction) (Resolved 09/20/18) History of coronary artery stent placement (Resolved 09/21/18) Abscess of left foot (Resolved) Cellulitis of left foot (Resolved) Chest pain (Resolved) Diabetic foot infection (Resolved) Diarrhea (Resolved) Enteritis, Yersinia enterocolitica (Resolved) Hyperglycemia (Resolved) Intractable nausea and vomiting (Resolved) Malnutrition (Resolved) Necrotizing soft tissue infection (Resolved) Severe sepsis (Resolved) 55 y/o admitted with a complaint of syncope #SYncope resolved. Orthostatics were negative PT/OT on board fall precautions #Abnormal stress test Troponins were negative. However she had very subtle EKG changes so stress test was done today which showed signs of anterior ischemia. cardiology on board; she is for cardiac cath today SubLingual nitroglycerin as needed. #Poorly controlled type 2 diabetes mellitus with hyperglycemia due to noncompliance. A1C is 13.1 on lantus 35 units daily. ISS. accuchecks ACHS #Diabetic foot ulcer has her LLE in a cast. Also has a healing wound on the right ankle with full she follows up at wound care. wound care on board. #CKD stage IIIb: stable. #Hyperlipidemia: on atorvastatin #History of ischemic cardiomyopathy: Has known EF of 45%. On aspirin and Plavix as well as Imdur #Hypertension: On losartan. DVT prophylaxis: Lovenox CODE STATUS: Full code OBSV E&M: 28660 Subsequent observation care L2
--- NOTE | 2020-12-31 13:25 | CL.D_ITS ---
Patient Name: DIONY ROCHA Study Date: 12/31/2020 Performing: Saravanan Jean Baptiste MD Ht: 66 inches 168 cm : 1965 Wt: 196.5 lbs 89 kg Age: 55 Gender: female BSA: 1.99 PROCEDURE(S) PERFORMED DJ88-URE/COR/LV SH68-JNF W OR WO PTCA, SINGLE CORONARY ARTERY CLINICAL PROFILE AND INDICATIONS Indications: Suspected CAD Heart Failure: None Stress/Imaging Date: 12/30/20ress Test with SPECT MPI: Positive High Risk CAD Presentations: Unstable angina. CONCLUSIONS Previously placed stents in the proximal and mid LAD noted to be patent with distal LAD with 95% sten osis: Moderate mid circumflex disease: Mild right coronary artery disease: Preserved ejection fractii on. RECOMMENDATIONS Referred for immediate PCI DESCRIPTION OF PROCEDURE The patient arrived to the procedure lab. The risks and benefits of the procedure as well as a full d escription of our services here and current unavailability of surgical backup were fully explained to the patient and/or their significant other prior to the catheterization. The Timeout was completed, verifying the correct patient and procedure. The patient's procedural site was prepped and draped in the usual fashion. Local anesthetic was given subcutaneously to right radial region with Lidocaine 2% . Using a modified Seldinger technique, arterial access was obtained via the right radial artery, a 6 Fr sheath was inserted. Right Coronary Artery selective angiography was then performed in multiple v iews using a 5 Fr. 4.0 Barstow catheter. Left Coronary Artery selective angiography was performed in mu ltiple views using a 5 Fr. 4.0 [place] catheter. Left Ventriculography was performed in SERNA projection using a 5 Fr. Pigtail catheter. LV to AO pullback pressures were then recorded.The arterial sheath was pulled and a TR Band was applied for hemostasis CORONARY ANGIOGRAPHY DOMINANCE: Right Dominant LEFT HEART ASSESSMENT Left Ventricular Ejection Fraction: by LV Gram 60 % Normal LV wall motion Normal Left Ventricular systolic function LEFT MAIN: Angiographically normal LEFT ANTERIOR DESCENDING ARTERY: PROX LAD: Previously placed stent is patent MID LAD: Previously placed stent is patent DISTAL LAD: 95 % Stenosis CIRCUMFLEX ARTERY: MID CIRC: 60 % Stenosis OM 1: Proximal - Mild luminal irregularities RIGHT CORONARY ARTERY: Mild luminal irregularities less than 30% COMPLICATIONS No Complications PROCEDURE MEDICATIONS Fentanyl 50 mcg IV Versed 1 mg IV Versed 1 mg IV Fentanyl 25 mcg IV Oxygen: 2 L/min via nasal cannula Heparin diluted in 23cc Heparinized saline. Patient given 10cc IA of this solution. 12/31/2020 12:01: 59 Heparin 6000 unit(s) IV 12/31/2020 12:35:54 Verapamil 2.5mg, Ntg 100mcgs, 2000 units of Heparin diluted in 23cc Heparinized saline. Patient give n 10cc IA of this solution. 12/31/2020 12:01:59 IV Bolus: .9 NaCl 300 ml total 12/31/2020 13:07:09 SUMMARY OF HEMODYNAMIC DATA Time AIR REST ECG 11:32:13 AO 141/67 (95) SA 12:05:09 AO 180/86 (122) 12:19:48 LV 160/4, 10 12:27:15 LV 157/4, 8 12:27:22 LV 160/5, 15 12:27:59 LVp 160/6, 13 12:28:06 AOp 0/-11 (51) 12:28:11 AO 160/63 (107) 12:38:58 Signed By Saravanan Jean Baptiste MD On 12/31/2020 1:25:16 PM Saravanan Jean Baptiste MD
--- NOTE | 2020-12-31 13:30 | CL.I_ITS ---
Patient Name: DIONY ROCHA Study Date: 12/31/2020 Performing: Chris Liang MD Ht: 66 inches 168 cm : 1965 Wt: 196.5 lbs 89 kg Age: 55 Gender: female BSA: 1.99 PROCEDURE(S) PERFORMED CJ67-CII W OR WO PTCA, SINGLE CORONARY ARTERY CLINICAL PROFILE AND CO-MORBIDITIES Indications: Suspected CAD Heart Failure: None Stress/Imaging Date: 12/30/20 Stress Test with SPECT MPI: Positive High Risk CAD Presentations: Unstable angina. CONCLUSIONS Successful DARA to mLAD RECOMMENDATIONS DESCRIPTION OF PROCEDURE The patient arrived to the procedure lab. The risks and benefits of the procedure as well as a full d escription of our services here and current unavailability of surgical backup were fully explained to the patient and/or their significant other prior to the catheterization. The Timeout was completed, verifying the correct patient and procedure. The patient's procedural site was prepped and draped in the usual fashion. Local anesthetic was given subcutaneously to right radial region with Lidocaine 2% Using a modified Seldinger technique,arterial access was obtained via the right radial artery, a 6Fr sheath was inserted. Right Coronary Artery selective angiography was then performed in multiple view s using a 5 Fr. 4.0 Sweeny catheter. Left Coronary Artery selective angiography was performed in multi ple views using a 5 Fr. 4.0 Sweeny catheter. Left Ventriculography was performed in SERNA projection usi ng a 5 Fr. Pigtail catheter. LV to AO pullback pressures were then recorded.The images were reviewed and options discussed. A decision was then made to proceed with an Intervention, IVUS o r other adjunct procedure. XB 3.0 Guide catheter was inserted and engaged into the LCA. Angiogram performed pre balloon dila tation. BMW Guide wire was advanced to the LAD. 2.0 x 8 Emerge Balloon catheter was advanced across l esion in the LAD, mid. PTCA balloon inflated at 8 atms for 28 secs. 2.25 x [address] ent was advanced across the lesion in the LAD, mid. Angiogram performed post stent deployment. The arterial sheath was pulled and a TR Band was applied for hemostasis INTERVENTION INFORMATION LESION SITE: LAD (Mid) Lesion Complexity: High/C, chronic total occlusion: No, lesion at bifurcation: No, thrombus present: No, lesion length: 8 mm, culprit lesion: Yes, Previously treated lesion: No Pre Stenosis: 95 % Pre intervention GAEL flow: 3 PROCEDURE: Drug Eluting Stent with pre dilatation. Post Stenosis: 0 % Post intervention GAEL flow: 3 Lesion Devices: Mann .014 BMW [place] Straight 190cm Cardinal 6 Fr XB3.0 100cm Guide Catheter Contreras Sci EMERGE MR 2.00x08 BALLOON Contreras Sci Synergy MR DARA 2.25x12 COMPLICATIONS No Complications PROCEDURE MEDICATIONS Fentanyl 50 mcg IV Versed 1 mg IV Versed 1 mg IV Fentanyl 25 mcg IV Oxygen: 2 L/min via nasal cannula Heparin diluted in 23cc Heparinized saline. Patient given 10cc IA of this solution. 12/31/2020 12:01: 59 Heparin 6000 unit(s) IV 12/31/2020 12:35:54 Verapamil 2.5mg, Ntg 100mcgs, 2000 units of Heparin diluted in 23cc Heparinized saline. Patient give n 10cc IA of this solution. 12/31/2020 12:01:59 IV Bolus: .9 NaCl 300 ml total 12/31/2020 13:07:09 SUMMARY OF HEMODYNAMIC DATA Time AIR REST ECG 11:32:13 AO 141/67 (95) SA 12:05:09 AO 180/86 (122) 12:19:48 LV 160/4, 10 12:27:15 LV 157/4, 8 12:27:22 LV 160/5, 15 12:27:59 LVp 160/6, 13 12:28:06 AOp 0/-11 (51) 12:28:11 AO 160/63 (107) 12:38:58 Signed By Chris Liang MD On 01/01/2021 10:53:22 Chris Liang MD
--- NOTE | 2020-12-31 13:30 | EKG12_ITS ---
Test Reason : AM EKG Blood Pressure : / mmHG Vent. Rate : 073 BPM Atrial Rate : 073 BPM P-R Int : 162 ms QRS Dur : 092 ms QT Int : 436 ms P-R-T Axes : 034 019 019 degrees QTc Int : 480 ms Normal sinus rhythm Nonspecific T wave abnormality Prolonged QT Abnormal ECG When compared with ECG of 31-DEC-2020 13:29, MANUAL COMPARISON REQUIRED, DATA IS UNCONFIRMED Confirmed by OTTO DELVALLE, DOMINIQUE ([id number]), general machine operator HARINI PHAM ([id number]) on 01/05/2021 1:53:51 PM Referred By: BILL Confirmed By:DOMINQIUE MENJIVAR MD
[2020-12-31] MEDS: 0.9% Normal Saline 1,000 ML 80 ML IV (13:34)
[2020-12-31] MEDS: Pramipexole Di-HCl 1 MG Tablet 1.5 MG PO ×2 (14:29→22:10)
--- NOTE | 2020-12-31 14:29 | CRPHASE1_ITS ---
Patient Communication PHII Cardiac Rehab Discussed with Patient:: Yes Guide to Cardiac Rehab Given to Patient:: Yes Cardiac Rehab Facility Choice List Given to Patient:: Yes Choice Program [facility] PHII:: Communication Given to CR, Refer to [facility] Charge Account Authorizer:: Alesia Liang - Interventionalist Refer Phase II Cardiac Rehab:: Yes - to occur after discharge Sessions:: 36 sessions - 3 days/wk, 12 weeks Cardiac Rehabilitation Info Cardiac Rehabilitation Program Information: Cardiac Rehabilitation is important for patients like you who are recovering from a heart problem. Cardiac rehabilitation programs are recognized as integral to the continued care of the patient with coronary heart disease. The cardiac rehabilitation program is designed to optimize a patient's physical, psychological, and social functioning. Health manager home healthcare work in cardiac rehabilitation programs and assist you with getting the treatments you need to get stronger and healthier - like exercise, healthy eating habits, and medications. Cardiac rehabilitation has been show to help people with heart problems live longer and have better life enjoyment than people who do not go to cardiac rehabilitation. Please contact the Cardiac Rehabilitation Program at [facility] at in two weeks if you have not heard from them.
[2020-12-31] MEDS: Iron Polysaccharide Complex 150 MG CAPSULE PO (14:30)
[2020-12-31] MEDS: Gabapentin 300 MG Capsule 900 MG PO ×2 (14:30→16:20)
--- NOTE | 2020-12-31 14:30 | CRPH1.INSTRU ---
General Education CAD and cardiac anatomy and function:: Patient communicates acknowledgment Explanation of diagnoses and procedures:: Patient communicates acknowledgment Sign/Symptoms of ID:: Patient communicates acknowledgment Antiplatelet therapy: Patient communicates acknowledgment Proper use of NTG-SL: Patient communicates acknowledgment Emergency procedures and activation of EMS: Patient communicates acknowledgment Compliance of all prescribed medications: Patient communicates acknowledgment Dyslipidemia Patient Dyslipidemia Risk Factors Are:: Total Cholesterol - 201, Triglycerides - 330, HDL - 51, LDL - 84 Recommendations Include:: Lipid profile provided, Reviewed NCEP/ATP guidelines, Therapeutic Lifestyle Change dietary guidelines Dyslipidemia Response Code:: Patient communicates acknowledgment Hypertension Recommendations Include:: Maintain BP <130/85, BP <130/80 if diabetic, DASH dietary guidelines, Decrease/maintain normal body weight, Moderation of ETOH Hypertension:: Patient communicates acknowledgment Diabetes Recommendations Include:: Maintain fasting blood sugars 70-110 md/dL, Maintain HgbA1c of 6% or less, Monitor blood sugar as prescribed, Diabetic dietary guidelines, Decrease/maintain body weight Diabetes:: Patient communicates acknowledgment Metabolic Syndrome Patient Metabolic Syndrome Risk Factors Are [3 of 5]:: Fasting blood sugar > 100 mg/dL, High triglyceride >150, Hypertension Recommendations Include:: Reinforce compliance to risk factor modifications, Patient is diabetic, Encouraged follow-up with Primary Care Physician Metabolic Syndrome Response Code:: Patient communicates acknowledgment Sedentary Patient Sedentary Risk Factors Are:: Lack of regular exercise Recommendations Include:: Aerobic exercise 5-7 times/week for 20-30 minutes continuously, Benefits of regular exercise, Discussed home walking program, Monitored Outpatient Cardiac Rehab Sedentary Response Code:: Patient communicates acknowledgment
[2020-12-31] MEDS: Insulin Lispro 100 UNIT/ML INSULN.PEN 20 UNIT SC ×2 (14:34→16:23)
[2020-12-31] MEDS: oxyCODONE 5 MG Tablet PO ×2 (14:37→22:09)
[2020-12-31] MEDS: Insulin Lispro 100 UNIT/ML INSULN.PEN SC ×2 (16:23→22:13)
[2020-12-31] MEDS: hydrALAZINE 20 MG/ML Vial 10 MG IV (16:33)
[2020-12-31 17:15] LABS: Bedside Glucose 306 mg/dL (70-110)
[2020-12-31] MEDS: Atorvastatin Calcium 80 MG Tablet PO (22:10)
[2020-12-31] MEDS: Paroxetine 20 MG Tablet PO (22:11)
[2020-12-31] MEDS: Insulin Lispro 100 UNIT/ML INSULN.PEN 10 UNIT SC (22:15)
[2020-12-31 22:36] LABS: Bedside Glucose > 500 mg/dL (70-110)
[2021-01-01] VITALS (11 sets, daily range): BP systolic 132–156; BP diastolic 57–99; PULSE 67–112; RESP 12–16; TEMP 36.4–36.9; O2SAT 93–98
[2021-01-01 01:51] LABS: Bedside Glucose 161 mg/dL (70-110)
[2021-01-01 06:05] LABS: Bedside Glucose 140 mg/dL (70-110)
[2021-01-01 06:34] LABS: Hematocrit 32.8 % (37-47); Hemoglobin 10.4 g/dL (12.0-15.0); Mean Corp Hgb Conc 31.7 g/dL (32-36); Mean Corpuscular Hgb 27.7 pg (27.0-32.0); Mean Corpuscular Volume 87.5 fL (81-99); Mean Platelet Vol. 11.8 fl (6.2-12.0); Platelet Count 289 K/mm3 (150-450); RBC Distribution Width CV 13.8 % (11.6-14.6); RBC Distribution Width SD 43.7 fl (35.1-43.9); Red Blood Count 3.75 M/mm3 (4.2-5.4)
[2021-01-01 06:55] LABS: ALB/GLOB Ratio 0.8 RATIO (0.9-2.4); AST(SGOT) 32 U/L (15-37); Alanine Aminotransfer ALT/SGPT 40 U/L (13-56); Albumin, Serum 2.7 g/dL (3.2-5.0); Alkaline Phosphatase 130 U/L (45-117); Anion Gap 8 (5-15); BUN 39 mg/dL (7-18); BUN/Creat Ratio 30.5 RATIO (10-20); Calcium,Total 9.1 mg/dL (8.5-10.1); Chloride 107 mmol/L (98-107); Creatinine, Serum 1.28 mg/dL (0.55-1.02); EST Glomerular Filtration Rate 46 mL/min (>60); Est Glom Filt Rate - Afr Amer 56 mL/min (>60); Estimated Creatinine Clearance 46.49 ml/min; Globulin 3.6 g/dL (2.2-4.2); Glucose 128 mg/dL (74-106); Potassium 3.7 mmol/L (3.5-5.1); Protein, Total 6.3 g/dL (6.4-8.2); Sodium Level 141 mmol/L (136-145)
[2021-01-01] MEDS: Ondansetron 4 MG/2 ML Vial IV (08:33)
[2021-01-01] MEDS: 0.9% Saline Lock 10 ML Syringe IV (08:34)
[2021-01-01] MEDS: Gabapentin 300 MG Capsule 900 MG PO ×3 (08:42→16:16)
[2021-01-01] MEDS: Aspirin 81 MG TAB.CHEW PO (08:43)
[2021-01-01] MEDS: Insulin Lispro 100 UNIT/ML INSULN.PEN 20 UNIT SC ×3 (08:43→16:14)
--- NOTE | 2021-01-01 10:00 | EKG12_ITS ---
Test Reason : POST Blood Pressure : / mmHG Vent. Rate : 074 BPM Atrial Rate : 074 BPM P-R Int : 150 ms QRS Dur : 094 ms QT Int : 420 ms P-R-T Axes : 052 013 007 degrees QTc Int : 466 ms Normal sinus rhythm Normal ECG When compared with ECG of 31-DEC-2020 04:44, MANUAL COMPARISON REQUIRED, DATA IS UNCONFIRMED Confirmed by OTTO DELVALLE, DOMINIQUE ([id number]), science editor HARINI PHAM ([id number]) on 01/05/2021 1:55:12 PM Referred By: BILL Confirmed By:DOMINIQUE MENJIVAR MD
--- NOTE | 2021-01-01 10:22 | PN.CARD_ITS ---
Subjectve: Patient seen and evaluated. Appears to be doing well status post angioplasty Objective: Vital Signs Temp Pulse Resp BP Pulse Ox 97.6 F L 74 14 153/99 H 95 01/01/21 07:45 01/01/21 07:45 01/01/21 10:04 01/01/21 07:45 01/01/21 07:52 Oxygen Delivery Method Room Air Weight: 195 lb 5.273 oz Body Mass Index (BMI) 31.5 Finger Stick Blood Glucose 133 Intake and Output for Last 24 Hours 12/30/20 12/31/20 01/01/21 23:59 23:59 23:59 Intake Total 1959 1329.33 / 1569.33 240 / 240 Output Total 700 / 700 500 / 500 Balance 1959 629.33 / 869.33 -260 / -260 General: Awake, Alert, Oriented x 3 HEENT: PERRL, EOMI, Sclera Non Icteric Neck: Supple, Good ROM, No Lymph Node Enlargement Lungs: Clear to auscultation Cardiovascular: Regular Rhythm, Normal S1, Normal S2, No Murmurs, No Rubs, No Gallops 01/01/21 05:36: WBC 7.0, RBC 3.75 L, Hgb 10.4 L, Hct 32.8 L, MCV 87.5, MCH 27.7, MCHC 31.7 L, Plt Count 289, MPV 11.8 01/01/21 05:36: Sodium 141, Potassium 3.7, Chloride 107, Carbon Dioxide 26.0, Anion Gap 8, BUN 39 H, Creatinine 1.28 H, Est GFR (MDRD) Af Amer 56 L, Est GFR (MDRD) Non-Af 46 L, BUN/Creatinine Ratio 30.5 H, Glucose 128 H, Calcium 9.1, Total Bilirubin 0.20 Rhythm: EKG: ECHO: Stress Test: Cardiac Cath: PCI: CT Surgery: Holter monitor: EPS: PPM: CXR: Chest CT Scan: Medical Necessity - Tobacco Use Smoking Status: Never smoker Assessment/Plan 1. Syncope * The patient presented with syncope and was noted to have anterior ischemia. * Cardiac catheterization demonstrated the following: Normal left main coronary artery. Left anterior descending artery with previously placed stent in the proximal LAD patent: Stent in the mid LAD patent: Area in the mid to distal LAD with 95% stenosis noted. She underwent angioplasty and stenting of the above successfully and is doing well this morning. Other findings included, Nondominant left circumflex artery with mid 60% stenosis Dominant right coronary artery with no significant disease Preserved left ventricular systolic function 2. Coronary artery disease * she has had previous angioplasty and stenting of the left anterior descending artery. The results are as noted above. 3. Hypertension * Her blood pressure has been under good control. Orthostatics with thus far negative. I would recommend we continue her on the current medication with the losartan. * 4. Hyperlipidemia * She will continue with aggressive risk factor modification. * She can be discharged for outpatient follow-up. * Thank you for allowing me to participate in the care of your patient. Please don't hesitate to call if any issues arise.
[2021-01-01] MEDS: oxyCODONE 5 MG Tablet PO (10:28)
[2021-01-01] MEDS: Losartan Potassium 25 MG Tablet PO (10:28)
[2021-01-01] MEDS: Iron Polysaccharide Complex 150 MG CAPSULE PO (10:28)
[2021-01-01] MEDS: Clopidogrel Bisulfate 75 MG Tablet PO (10:30)
[2021-01-01] MEDS: Isosorbide Mononitrate 30 MG Tablet PO (10:30)
[2021-01-01] MEDS: Pramipexole Di-HCl 1 MG Tablet 1.5 MG PO (10:30)
[2021-01-01] MEDS: Enoxaparin 40 MG/0.4 ML Syringe SC (10:31)
--- NOTE | 2021-01-01 11:09 | NURSING ---
In to see patient and assess bilateral foot wounds. Pt states the tube and rod straightener is discharging her today. asked pt is the tube and rod straightener was aware of her planned trip to [place] this weekend and pt states he is aware. Discussed wound care with patient and patient states she will be able to change her own dressings daily. reminding patient of the importance of no weight bearing to the LLE. patient states her daughter plans to wheel her around in a wheelchair. patient states she has some Aquacel AG at home. Pt is currently getting dressing changes daily with Melgisorb since there has been quite a bit of drainage. pt will be sent home with a package and the remaining package that is open . pt is aware that she can use her Aquacel AG once she is out of the Melgisorb. Pt needs an absorbant dressing. covered wound with dry dressing after the Melgisorb was placed. wrapped with kerlix and MYLA wrap. pt aware to schedule an appt at the wound center as soon as she returns from her trip. pt states understanding. step by step instructions for wound care given to patient as well. denies questions.
[2021-01-01] MEDS: Insulin Lispro 100 UNIT/ML INSULN.PEN SC ×2 (11:43→16:14)
[2021-01-01 12:40] LABS: Bedside Glucose 229 mg/dL (70-110)
--- NOTE | 2021-01-01 15:53 | DCINST_ITS ---
- Discharge Diagnoses Current Active Problems: Current Active and Chronic Problems (This Medical Record has been edited. Action required.) Syncope (Acute) Acute electrocardiogram changes (Acute) Chronic renal insufficiency (Chronic) Hyperglycemia due to type 2 diabetes mellitus (Acute) Diabetic infection of left foot (Chronic) Anemia (Chronic) Anxiety and depression (Chronic) RLS (restless legs syndrome) (Chronic) Uncontrolled type II diabetes mellitus (Chronic) Debility (Chronic) Hypertension (Chronic) Diabetic polyneuropathy (Chronic) GERD (gastroesophageal reflux disease) (Chronic) Depression (Chronic) Atherosclerosis of [place] coronary artery of [place] heart without angina pectoris (Chronic) Essential (primary) hypertension (Chronic) HLD (hyperlipidemia) (Chronic) You will use the following diet at home:: Cardiac Your food should be the consistency of: Regular Your liquids should be the consistency of: Regular/Thin Discharge Activity: Return to Normal Activity Weight Bearing Status: Weight bearing as tolerated Call your doctor if you observe: Fever of 101 or Higher, Shortness of breath, Dizziness, Fainting spells, Chest pain Instructions: Warning Signs of a Heart Attack, What Is Angina?, Coronary Stents, Hyperglycemia (High Blood Sugar), How to Check Your Blood Sugar Allergies/Adverse Reactions: Allergies Penicillins Allergy (Verified 11/14/20 08:30) Shortness of breath vancomycin Allergy (Verified 11/14/20 08:30) Itching metronidazole Adverse Reaction (Verified 11/14/20 08:30) Nausea OXYCONTIN Allergy (Uncoded 11/14/20 08:30) Shortness of breath Medications to take at Discharge Gabapentin [Neurontin] 900 mg PO TIDCM 09/20/18 atorvastatin 80 mg tablet 80 mg PO QHS #90 tab 11/30/19 clopidogrel 75 mg tablet 75 mg PO DAILY #90 tab 11/30/19 Insulin Lispro [Humalog KwikPen] 20 unit SC TIDCM 08/31/20 Insulin Glargine [Lantus SoloStar Pen] 35 units SC DAILY 09/12/20 Iron Polysaccharide Complex [Ferrex 150] 150 mg PO DAILYCM 09/12/20 Isosorbide Mononitrate [Isosorbide Mononitrate ER] 30 mg PO DAILY 09/12/20 Paroxetine [Paxil] 20 mg PO QHS 09/12/20 Pramipexole Di-HCl [Mirapex] 1.5 mg PO BID 09/12/20 Acetaminophen [Tylenol] 1,000 mg PO Q6H PRN PRN tab 09/19/20 Peg 400/Hypromellose/Glycerin [Artificial Tears] 2 drp EACH EYE Q1H PRN bottle 09/19/20 Polyethylene Glycol 3350 [Miralax] 17 gm PO DAILY 11/14/20 Aspirin [Aspirin, Baby] 81 mg PO DAILY@0800 tab.chew 11/15/20 Losartan Potassium [Cozaar] 1 tablet PO DAILY 12/29/20 Oxycodone HCl/Acetaminophen [Oxycodone-Acetaminophen 5-325] 1 each PO BID 12/29/20 Clopidogrel Bisulfate [Plavix] 75 mg PO DAILY #0 tablet 01/01/21 Metoprolol(XL)Succ [Toprol Xl (Beta Tin)] 25 mg PO DAILY #30 tab 01/01/21 The following prescriptions were given: Metoprolol(XL)Succ [Toprol Xl (Beta Tin)] 25 mg PO DAILY #30 tab Transmission Status: Pending to [facility]/pharmacy #[id number] Orders to be completed after discharge: Phase II, Outpatient Cardiac Rehab Location: None Selected Primary Care Physician: Raúl Eric MD [Primary Care Provider] - Please follow up with your Primary Care Physician in: 1-2 weeks Test Results: Test results from this visit will be discussed in further detail at your follow- up appointment, if applicable. Please Follow Up With: Saravanan Jean Baptiste MD When: 2-4 weeks Please Follow Up With: Alli Esteban MD When: 2-4 weeks Proposed Discharge Date: 01/01/21
--- NOTE | 2021-01-01 15:58 | PCM.DC.SUM ---
Discharge Date and Diagnosis - Problem List Patient Problems: Active and Suspected Problems (This Medical Record has been edited. Action required.) Syncope (Acute) Acute electrocardiogram changes (Acute) Hyperglycemia due to type 2 diabetes mellitus (Acute) Date of Admission: 12/29/20 Date of Discharge: 01/01/21 - Primary Discharge Diagnosis Acute Problems: Active Problems (This Medical Record has been edited. Action required.) Syncope (Acute) Acute electrocardiogram changes (Acute) Hyperglycemia due to type 2 diabetes mellitus (Acute) CAD s.p PCI - Secondary Discharge Diagnosis Chronic Problems: Chronic Problems (This Medical Record has been edited. Action required.) Ulcer of right ankle (Chronic) Chronic renal insufficiency (Chronic) Ulcer of left foot with muscle involvement without evidence of necrosis (Chronic) Diabetic infection of left foot (Chronic) Anemia (Chronic) Anxiety and depression (Chronic) RLS (restless legs syndrome) (Chronic) Uncontrolled type II diabetes mellitus (Chronic) Obesity (Chronic) Debility (Chronic) Foot ulcer, left (Chronic) Cellulitis of left foot (Chronic) Coronary artery disease (Chronic) Hypertension (Chronic) Diabetic polyneuropathy (Chronic) GERD (gastroesophageal reflux disease) (Chronic) Depression (Chronic) Anxiety (Chronic) Diabetes mellitus (Chronic) Atherosclerosis of [place] coronary artery of [place] heart without angina pectoris (Chronic) Essential (primary) hypertension (Chronic) HLD (hyperlipidemia) (Chronic) Hospital Course and Treatment Imaging Results: Diagnostic Data Brain CT 12/29/20 08:50 IMPRESSION: Tiny lacuna is seen in the right internal capsule. This was not seen on prior study. Electronically Signed: Ronnie Saavedra MD at 9:45 EDT , Service support , Chest X-Ray 12/29/20 08:51 IMPRESSION: No acute abnormality is seen. Electronically Signed: Ronnie Saavedra MD at 9:46 EDT , Service support , Consultations 12/29/20 12:21 Consult: Onc/Wound/jet man Routine Comment: Operations: None Procedures: Cardiac catheterization, Stress test Summary of Care Provided: The patient is a 55 year old F with a PMH as outlined who was admitted via the ED on 12/29/2020 with a complaint of syncope. Patient couldnt remember any details. Daughter came home after she found out her mom had passed out. Patient is a noncompliant diabetic, and had been having symptoms of high blood sugars for several days. EKG showed mild T wave inversions. She also has a history of diabetic foot wounds and ulcers and states she has been following up with wound care. Blood sugar was in the 400s on admission. She denied any chest pain, though she admitted to a headache and she denied any shortness of breath. She denied any focal neurological symptoms. Review of systems otherwise negative. Vitals in the ED were essentially unremarkable. Chemistry showed creatinine of 1.67 and A1c of 13.1 with sodium of 138 and bicarb of 28. Blood glucose was 395. CBC showed hemoglobin of 11 with WBC of 7.7 and platelets of 303. CT of the brain showed no acute ST changes and chest x-ray showed no acute abnormality. She has been admitted to be managed for syncope likely due to dehydration from poorly controlled diabetes mellitus. She was hydrated with IV fluids. Orthostatics were negative. Blood sugar trended down and normalized. On account of syncope, she had a stress test which was abnormal and showed evidence of anterior ischemia.. Cardiology was therefore consulted. She had cardiac cath on 12/31/2020 which showed patent stents in the proximal and mid LAD and 95% stenosis in the distal LAD with moderate mid circumflex disease and mild right coronary artery disease as well as preserved ejection fraction. She had successful DC DARA placement to the mid LAD. She remained stable and was discharged home on 01/01/2021. She was discharged on p.o. aspirin, metoprolol, Plavix and high intensity statin. She is to follow-up with her primary care doctor and with cardiology. She was also referred to endocrinology for management of her poorly controlled diabetes. Note, A1c was 13.1. Patient seen and examined prior to discharge. She had some nausea in the morning but that resolved subsequently. Review systems otherwise negative. Labs and vitals reviewed. Home medication reviewed and reconciled. O/E: Vital Signs Temp Pulse Resp BP Pulse Ox 98.4 F 72 16 132/57 H 93 01/01/21 16:01 01/01/21 16:01 01/01/21 16:01 01/01/21 16:01 01/01/21 16:01 General: Alert, Oriented x3, Cooperative HEENT: Atraumatic, PERRLA, EOMI, Normocephalic Oral: Dry Mucosa Neck: Supple, No JVD, Negative Carotid Bruits Lungs: Clear to auscultation, Normal air movement Cardiovascular: Regular rate, No murmurs Abdomen: Bowel Sounds Present, Soft, Non Tender Extremities: No edema, Capillary Refill Less than 3 Seconds Skin: No rashes, No breakdown Musculoskeletal: No Tenderness to Palpation of Joints or Extremities Neurological: Cranial nerves II-XII grossly intact Psych/Mental Status: Normal Affect, Appropriate, Alert and oriented to time, place, person, mood and affect Plan is for discharge home today. Patient Problems: Active and Suspected Problems (This Medical Record has been edited. Action required.) Syncope (Acute) Acute electrocardiogram changes (Acute) Hyperglycemia due to type 2 diabetes mellitus (Acute) - Physical Exam Vitals/I&O's: Vital Signs Temp Pulse Resp BP Pulse Ox 98.4 F 81 12 132/57 H 93 01/01/21 11:48 01/01/21 15:00 01/01/21 14:11 01/01/21 11:48 01/01/21 11:48 Oxygen Delivery Method Room Air Weight: 195 lb 5.273 oz Body Mass Index (BMI) 31.5 Finger Stick Blood Glucose 133 Intake and Output for Last 24 Hours 12/30/20 12/31/20 01/01/21 23:59 23:59 23:59 Intake Total 1959 / 0 1329.33 / 1569.33 480 / 480 Output Total 700 / 700 500 / 500 Balance 1959 / 2159 629.33 / 869.33 -20 / -20 Laboratory Results 12/31/20 16:09: POC Glucose 306 H 12/31/20 22:00: POC Glucose > 500 H* 01/01/21 01:42: POC Glucose 161 H 01/01/21 05:36: WBC 7.0, RBC 3.75 L, Hgb 10.4 L, Hct 32.8 L, MCV 87.5, MCH 27.7, MCHC 31.7 L, RDW Std Deviation 43.7, RDW Coeff of [place] 13.8, Plt Count 289, MPV 11.8 01/01/21 05:36: Sodium 141, Potassium 3.7, Chloride 107, Carbon Dioxide 26.0, Anion Gap 8, BUN 39 H, Creatinine 1.28 H, Estim Creat Clear Calc 46.49, Est GFR (MDRD) Af Amer 56 L, Est GFR (MDRD) Non-Af 46 L, BUN/Creatinine Ratio 30.5 H, Glucose 128 H, Calcium 9.1, Total Bilirubin 0.20, AST 32, ALT 40, Alkaline Phosphatase 130 H, Total Protein 6.3 L, Albumin 2.7 L, Globulin 3.6, Albumin/Globulin Ratio 0.8 L 01/01/21 05:52: POC Glucose 140 H 01/01/21 11:39: POC Glucose 229 H Current Medications Acetaminophen (Acetaminophen 500 Mg Tablet) 1,000 mg PO Q6H PRN PRN PRN Reason: Pain Score 1-10 Aspirin (Aspirin 81 Mg Tab.Chew) 81 mg PO DAILY@0800 [facility] Last Admin: 01/01/21 08:43 Dose: 81 mg Documented by: Atorvastatin Calcium (Atorvastatin Calcium 80 Mg Tablet) 80 mg PO QHS [facility] Last Admin: 12/31/20 22:10 Dose: 80 mg Documented by: Atropine Sulfate (Atropine Sulfate 1 Mg/10 Ml Syringe) 0.5 mg IV UD PRN PRN Reason: HR <50 bpm Clopidogrel Bisulfate (Clopidogrel Bisulfate 75 Mg Tablet) 75 mg PO DAILY [facility] Last Admin: 01/01/21 10:30 Dose: 75 mg Documented by: Diphenhydramine HCl (Diphenhydramine 50 Mg/Ml Syringe) 25 mg IV Q6H PRN PRN PRN Reason: ITCHING Enoxaparin Sodium (Enoxaparin 40 Mg/0.4 Ml Syringe) 40 mg SC DAILY [facility] Last Admin: 01/01/21 10:31 Dose: 40 mg Documented by: Gabapentin (Gabapentin 300 Mg Capsule) 900 mg PO TIDCM [facility] Last Admin: 01/01/21 12:05 Dose: 900 mg Documented by: Heparin Sodium (Beef Lung) (Heparin Lock 500 Unit/5 Ml In 10 Ml Syringe) 500 unit IV UD PRN PRN Reason: HEPARIN FLUSH Hydralazine HCl (Hydralazine 20 Mg/Ml Vial) 10 mg IV Q6H PRN PRN PRN Reason: BP >160/100 Last Admin: 12/31/20 16:33 Dose: 10 mg Documented by: Sodium Chloride () 250 mls @ 15 mls/hr IV .[id number] PRN PRN Reason: Saline Flush Sodium Chloride () 250 mls @ 15 mls/hr IV .[id number] PRN PRN Reason: Additional IVPB Infusion Sodium Chloride () 1,000 mls @ 0 mls/hr IV .Q0M TAB Sodium Chloride () 1,000 mls @ 80 mls/hr IV .[id number] [facility] Last Admin: 01/01/21 15:29 Dose: Not Given Documented by: Insulin Glargine (Insulin Glargine 100 Units/Ml Pen) 35 units SC DAILY [facility] Last Admin: 01/01/21 10:35 Dose: 35 u Documented by: Insulin Human Lispro (Insulin Lispro 100 Unit/Ml Insuln.Pen) 20 unit SC TIDCM [facility] Last Admin: 01/01/21 11:42 Dose: 20 u Documented by: Insulin Human Lispro (Insulin Lispro 100 Unit/Ml Insuln.Pen) 0 unit SC ACHS [facility]; Protocol Last Admin: 01/01/21 11:43 Dose: 6 u Documented by: Isosorbide Mononitrate (Isosorbide Mononitrate 30 Mg Tablet) 30 mg PO DAILY [facility] Last Admin: 01/01/21 10:30 Dose: 30 mg Documented by: Labetalol HCl (Labetalol (Prefilled) 20 Mg/4 Ml) 5 mg IV X1 PRN PRN Reason: SBP >160 when pulling sheath Stop: 01/02/21 13:21 Losartan Potassium (Losartan Potassium 25 Mg Tablet) 25 mg PO DAILY [facility] Last Admin: 01/01/21 10:28 Dose: 25 mg Documented by: Nitroglycerin (Nitroglycerin (Inpatient Use) 0.4 Mg Tab.Subl) 0.4 mg SL Q5M PRN PRN Reason: CARDIAC/CHEST PAIN Nutritional Formula (Nutritional Supplement (Ted) Packet) 1 packet PO BIDCM [facility] Last Admin: 01/01/21 08:42 Dose: 1 packet Documented by: Ondansetron HCl (Ondansetron 4 Mg/2 Ml Vial) 4 mg IV Q8H PRN PRN PRN Reason: NAUSEA/VOMITING Last Admin: 01/01/21 08:33 Dose: 4 mg Documented by: Oxycodone HCl (Oxycodone 5 Mg Tablet) 5 mg PO BID [facility] Last Admin: 01/01/21 10:28 Dose: 5 mg Documented by: Paroxetine HCl (Paroxetine 20 Mg Tablet) 20 mg PO QHS [facility] Last Admin: 12/31/20 22:11 Dose: 20 mg Documented by: Polyethylene Glycol (Polyethylene Glycol 3350 17 Gm Packet) 17 gm PO DAILY [facility] Last Admin: 01/01/21 10:35 Dose: Not Given Documented by: Polysaccharide Iron Complex (Iron Polysaccharide Complex 150 Mg Capsule) 150 mg PO DAILY [facility] Last Admin: 01/01/21 10:28 Dose: 150 mg Documented by: Pramipexole Dihydrochloride (Pramipexole Di-Hcl 1 Mg Tablet) 1.5 mg PO BID [facility] Last Admin: 01/01/21 10:30 Dose: 1.5 mg Documented by: Sodium Chloride (0.9% Saline Lock 10 Ml Syringe) 10 - 40 ml IV UD PRN PRN Reason: SALINE FLUSH Last Admin: 01/01/21 08:34 Dose: 10 ml Documented by: Sodium Chloride (0.9% Normal Saline 500 Ml Iv.Soln.) 500 ml IV BOLUS PRN PRN Reason: VASO-VAGAL PROTOCOL Discharge Diet: Low fat/ Low Cholesterol Discharge Activity: Return to Normal Activity Weight Bearing Status: Weight bearing as tolerated Call your doctor if you observe: Fever of 101 or Higher, Shortness of breath, Dizziness, Fainting spells, Chest pain Home Medications: Medications to take at Discharge Gabapentin [Neurontin] 900 mg PO TIDCM 09/20/18 atorvastatin 80 mg tablet 80 mg PO QHS #90 tab 11/30/19 clopidogrel 75 mg tablet 75 mg PO DAILY #90 tab 11/30/19 Insulin Lispro [Humalog KwikPen] 20 unit SC TIDCM 08/31/20 Insulin Glargine [Lantus SoloStar Pen] 35 units SC DAILY 09/12/20 Iron Polysaccharide Complex [Ferrex 150] 150 mg PO DAILYCM 09/12/20 Isosorbide Mononitrate [Isosorbide Mononitrate ER] 30 mg PO DAILY 09/12/20 Paroxetine [Paxil] 20 mg PO QHS 09/12/20 Pramipexole Di-HCl [Mirapex] 1.5 mg PO BID 09/12/20 Acetaminophen [Tylenol] 1,000 mg PO Q6H PRN PRN tab 09/19/20 Peg 400/Hypromellose/Glycerin [Artificial Tears] 2 drp EACH EYE Q1H PRN bottle 09/19/20 Polyethylene Glycol 3350 [Miralax] 17 gm PO DAILY 11/14/20 Aspirin [Aspirin, Baby] 81 mg PO DAILY@0800 tab.chew 11/15/20 Losartan Potassium [Cozaar] 1 tablet PO DAILY 12/29/20 Oxycodone HCl/Acetaminophen [Oxycodone-Acetaminophen 5-325] 1 each PO BID 12/29/20 Clopidogrel Bisulfate [Plavix] 75 mg PO DAILY #0 tablet 01/01/21 Metoprolol(XL)Succ [Toprol Xl (Beta Tin)] 25 mg PO DAILY #30 tab 01/01/21 Following Prescriptions Were Given to Patient: Metoprolol(XL)Succ [Toprol Xl (Beta Tin)] 25 mg PO DAILY #30 tab Transmission Status: Received by [facility]pharmacy #[id number] Other Amb Orders: Phase II, Outpatient Cardiac Rehab Location: None Selected Primary Care Physician: Raúl Eric MD [Primary Care Provider] - Please follow up with your Primary Care Physician in: 1-2 weeks Please Follow Up With: Saravanan Jean Baptiste MD When: 2-4 weeks Please Follow Up With: Alli Esteban MD When: 2-4 weeks Patient Instructions: What Is Angina?, Coronary Stents, Hyperglycemia (High Blood Sugar), How to Check Your Blood Sugar, Warning Signs of a Heart Attack Disposition: Home Minutes spent on discharge:: 45 Patient Condition:: Stable Medical Necessity - Tobacco Use Smoking Status: Never smoker Meaningful Use Info Meaningful Use Diagnoses (Choose all that apply): None applicable Inpatient E&M: 82860 Disch Hosp
[2021-01-01 16:35] LABS: Bedside Glucose 396 mg/dL (70-110)
== END 2021-01-01 15:57 | disposition home or self-care (01) ==
LOC: ED 10:20 → PCU 10:44
PROVIDERS: Specialist; Admitting Provider Student in an Organized Health Care Education/Training Program; Emergency Provider Emergency Medicine; PCP Family Medicine; Visit Provider Student in an Organized Health Care Education/Training Program
DX: I25.110 Atherosclerotic heart disease of native coronary artery with unstable angina pectoris (principal); R55 Syncope and collapse; E11.22 Type 2 diabetes mellitus with diabetic chronic kidney disease; E11.52 Type 2 diabetes mellitus with diabetic peripheral angiopathy with gangrene; E11.65 Type 2 diabetes mellitus with hyperglycemia; I25.10 Atherosclerotic heart disease of native coronary artery without angina pectoris; E66.9 Obesity, unspecified; G25.81 Restless legs syndrome; F41.9 Anxiety disorder, unspecified; F32.9 Major depressive disorder, single episode, unspecified; E11.621 Type 2 diabetes mellitus with foot ulcer; L97.525 Non-pressure chronic ulcer of other part of left foot with muscle involvement without evidence of necrosis; I25.5 Ischemic cardiomyopathy; E11.42 Type 2 diabetes mellitus with diabetic polyneuropathy; N18.32 Chronic kidney disease, stage 3b; K21.9 Gastro-esophageal reflux disease without esophagitis; I12.9 Hypertensive chronic kidney disease with stage 1 through stage 4 chronic kidney disease, or unspecified chronic kidney disease; E78.5 Hyperlipidemia, unspecified; I25.2 Old myocardial infarction; Z79.4 Long term (current) use of insulin; Z79.02 Long term (current) use of antithrombotics/antiplatelets; Z79.82 Long term (current) use of aspirin; Z79.899 Other long term (current) drug therapy; Z95.5 Presence of coronary angioplasty implant and graft; Z86.73 Personal history of transient ischemic attack (TIA), and cerebral infarction without residual deficits; Z91.19 Patient's noncompliance with other medical treatment and regimen
CPT/HCPCS: 36415; 70450; 71045; 78452; 80048; 80053; 81001; 82077; 82962; 83036; 84484; 85025; 85027; 87426; 92928; 93005; 93017; 93306; 93458; 96361; 96372; 96374; 96375; 96376; 97110; 97162; 97166; 97530; 97535; 97802; 99152; 99153; 99218; 99285; A9500; J7030; J7040; Q9967; A4216; C1725; C1769; C1874; C1887; C1894; C9600; G0378; J2405; J2785

== ENCOUNTER 2021-02-03 11:25 | Outpatient (RCR) | payer MEDICARE, MEDICAID, SELFPAY ==
[2018-09-21 13:23] VITALS: BMI 29.3
[2020-12-29 11:10] VITALS: BMI 31.5
[2021-01-08 00:23] VITALS: BP 190/89; PULSE 93; RESP 20; TEMP 36.5
[2021-01-20 09:58] VITALS: BP 136/69; PULSE 96; RESP 16; TEMP 36.3; BMI 31.5
--- NOTE | 2021-01-20 12:29 | PN.PCM_ITS ---
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 left foot ulcer History of Wound: Patient is a 55-year-old female who presents to the clinic for follow-up of hospital stay for a left foot chronic ulceration. Patient had MRI on 09/01/2020 showing 1. Large 5.81 x 1.70 cm open skin defect/wound on the lateral plantaraspect of the foot contains fluid and debris and can be a infected. The investing fascia and the plantar aspect of the foot beneath the fourth metatarsal bone encloses the complex fluid collection, and there is no demonstrated intramuscular extension or contact with the overlying bony structures. 2. Mild cortical irregularity is present at the base and plantar and lateral aspect of the fifth metatarsal bone and cuboid which could be related to prior infection or sequela from previous trauma. 3. No active bone marrow edema or cortical erosion is seen to suggest. active osteomyelitis. Patient had an I&D performed in the hospital by Dr. Guadarrama on 09/08/2020. That time patient was noted to have infection to left foot wound with Staphylococcus and Enterobacter which was treated during her stay at the hospital and TCU. Patient has had this ulceration for quite some time. 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 Patient also was noted to have bilateral varus foot deformity. Patient has a noted history of poor compliance of medical recommendations. Patient presents to the office ambulating in TCC unassisted. She states that she cannot do nonweightbearing with the crutches as she is afraid she will fall. Patient had [facility] PT that has since finished and patient states she never felt stable. Patient was noted to have course of antibiotics while in the hospital in August 2020. Since being discharged from the hospital August 2020 patient has missed several of her follow-up appointments including here at the wound care center as well as with her primary care physician. She states issues with transportation. Patient missed follow- up appointment with infectious disease on November 12, 2020. She states that she saw them 11/26/2020. She states he didn't do anything. She was admitted to the hospital 11/14/20 for altered mental status. She was found to have had 2 mini strokes per patient. The TCC was removed at that time and patient was to resume wound vac. Culture was obtained in the hospital growing enterobacter cloacae, klebsiella oxytoca, corynebacterium striatum, and enterococcus faecalis. This wasn't treated while in the hospital. Dr Tello was contacted and he started her on linezolid and omnicef 12/02/20. Patient also relates that she is largely nonweightbearing by sitting in a chair or on the couch she also uses a wheelchair at home. She states she moved back in with her daughter. She does admit to walking around without the boot to protect the total contact cast. She does admit to external rotation of the lower extremities which could be a contributing factor to ulcer breakdown of the right lateral ankle. She also admits to having offloading boot that she does not wear at night as she states she kicks it off due to her restless leg syndrome. She relates that she has a in [place] and visits him for months at a time when she has the funds. This has contributed to her noncompliance. Patient also relates having ulceration to the right lateral ankle that began in the middle of September 2020 she believes that this started while sleeping with her restless leg syndrome. Patient expresses concern over losing her foot but seems reluctant to follow treatment recommendations. She does not seem willing or capable to follow instructions. Patient just returned from vacation. She states that she was able to get her wheelchair into the car so she is largely nonweightbearing during her vacation. She relates that between herself and her daughter she was able to maintain proper wound care. Progress of Wound: Stable left plantar wound. Improved right ankle wound impr sharmaine with less depth noted and smaller size Subjective: Patient seen and examined resting comfortably. Patient denies any new pedal complaints. Patient denies any nausea, fever, chills, chest pain, shortness of breath, cough, streaking, purulence, vomiting. Patient relates that she had a good time on vacation - Physical Exam Vital Signs Temp Pulse Resp BP 97.4 F L 96 16 136/69 H 01/20/21 09:58 01/20/21 09:58 01/20/21 09:58 01/20/21 09:58 General: Alert, Oriented x3 HEENT: Atraumatic Abdomen: Obese Extremities: No cyanosis, No edema, Capillary Refill Less than 3 Seconds, No Calf Tenderness, Diminished Peripheral Pulses Skin: Ulcer/ Wound - Plantar left foot ulceration and right lateral ankle ulceration. No malodor, erythema, purulence, probing to bone, streaking, fluctuation, crepitus, or other signs of infection. Skin is atrophic and hairless. Granular base. Left plantar foot ulceration noted to probe near bone. Serous drainage Wound Measurements and Assessment WC - Nurse 1 - General Ulcer Measurement Start: 01/20/21 09:58 Freq: Status: Active Protocol: Activity Type Activity Date Activity User E-Sign Co-Sign Detail Recorded Client Recorded Date Recorded By Document 01/20/21 09:58 [facility] [id number] 01/20/21 10:05 [facility] 01/20/21 09:58 Wound Center Nurse 1 [Ulcer Assessment] #17 R Lat Ankle -Combined with other wound No -Current Size (cm) - Length 0.2 -Current Size (cm) - Width 0.2 -Current Size (cm) - Depth 0.2 -Total Square Cm 0.04 -Photo Taken No -Epithelialization Medium 34-66% -Tunneling No -Undermining/Tunneling No -Circular Undermining No -Exudate Amt None Present -Wound Margin Distinct, Outline Attached -Granulation Amt None Present (0 %) -Slough/Fibrin Yes -Necrosis Amt Large (67-100%) -Necrotic Tissue Type Eschar -Texture (Natacha-wound Skin Appearance) Assessed, Scarring -Moisture (Natacha-wound Skin Appearance Assessed,Dry/ ) Scaly -Color (Natacha-wound Skin Appearance) Assessed -Temperature (Natacha-wound Skin No Abnormality Appearance) (Pt Warm) -Tenderness on Palpation (Natacha-wound No Skin Appearance) -Ulcer Cleansing Wound Cleanser -Foul Odor after Cleansing No -Anesthetic Used 4% Lidocaine Solution #16 L Plantar med foot -Combined with other wound No -Current Size (cm) - Length 2.8 -Current Size (cm) - Width 2 -Current Size (cm) - Depth 1.0 -Total Square Cm 5.6 -Photo Taken No -Epithelialization None Present -Tunneling No -Undermining/Tunneling Yes -Undermining/Tunneling Starts (O' 6 clock) -Undermining/Tunneling Ends (O'clock) 10 -Maximum Distance (cm) 0.7 -Circular Undermining No -Exudate Amt Large -Exudate Type Serosanguineous -Wound Margin Distinct, Outline Attached -Granulation Amt Large (67-100%) -Granulation Quality Red -Slough/Fibrin Yes -Necrosis Amt Small (1-33%) -Necrotic Tissue Type Adherent Slough -Texture (Natacha-wound Skin Appearance) Assessed,Callus ,Scarring -Moisture (Natacha-wound Skin Appearance Maceration,Dry/ ) Scaly -Color (Natacha-wound Skin Appearance) Assessed,Palor -Temperature (Natacha-wound Skin No Abnormality Appearance) (Pt Warm) -Tenderness on Palpation (Natacha-wound No Skin Appearance) -Ulcer Cleansing Wound Cleanser -Foul Odor after Cleansing No -Anesthetic Used 4% Lidocaine Solution [Edema Assessment] -Lower Limb Edema Present Yes -Right Calf (cm) 35 -Right Ankle (cm) 20.4 -Left Calf (cm) 35.5 -Left Ankle (cm) 21 WC - Nurse 2 - General Ulcer CM Notes Start: 01/20/21 09:58 Freq: Status: Active Protocol: Activity Type Activity Date Activity User E-Sign Co-Sign Detail Recorded Client Recorded Date Recorded By Document 01/20/21 10:26 LISSY [id number] 01/20/21 10:41 LISSY 01/20/21 10:26 Wound Center Nurse 2 [Procedure/Treatment] #17 R Lat Ankle -Time 10:31 -Correct Patient Yes -Correct Side, Site, Position Yes -Correct Procedure Yes -Procedure Performed Yes -Type of Procedure Debridement -Clinical Debridement Subcutaneous -Tissue Removed Subcutaneous -Post Debridement (cm) - Length 0.5 -Post Debridement (cm) - Width 0.4 -Post Debridement (cm) - Depth 0.1 -Total Square (Post) (cm) 0.20 -Area of Debridement (cm) - Length 0.5 -Area of Debridement (cm) - Width 0.4 -Total Square (Area) (cm) 0.20 -Tunneling No -Undermining/Tunneling No -Circular Undermining No -Wound/Ulcer Outcome Not Healed -Ulcer Cleansing Rinsed/ Irrigated with Saline -Foul Odor after Cleansing No -Bioengineered Tissue Yes -Type of Bioengineered Tissue Apligraf -Expiration Date 01/27/21 -Product Lot Number [id number] -Percent Used 100 -Lot number of Saline Used [id number] -Bleeding Controlled with Pressure -Offloading No -Treatment Response Procedure Tolerated Well -Debridement - Subq, 1st 20sq cm No -Apply Skin Sub - 1st 25 sq cm - Legs 1 -Apligraf (per sq cm) 44 Query Text:1 sheet = 44 sq cm #16 L Plantar med foot -Time 10:31 -Correct Patient Yes -Correct Side, Site, Position Yes -Correct Procedure Yes -Procedure Performed Yes -Type of Procedure Debridement -Clinical Debridement Subcutaneous -Tissue Removed Subcutaneous -Post Debridement (cm) - Length 3 -Post Debridement (cm) - Width 3 -Post Debridement (cm) - Depth 1 -Total Square (Post) (cm) 9 -Area of Debridement (cm) - Length 3 -Area of Debridement (cm) - Width 3 -Total Square (Area) (cm) 9 -Tunneling No -Undermining/Tunneling No -Circular Undermining No -Wound/Ulcer Outcome Not Healed -Ulcer Cleansing Rinsed/ Irrigated with Saline -Foul Odor after Cleansing No -Bioengineered Tissue Yes -Type of Bioengineered Tissue Apligraf -Expiration Date 01/27/21 -Product Lot Number [id number] -Percent Used 100 -Lot number of Saline Used [id number] -Bleeding Controlled with Pressure -Offloading Yes -Type of Offloading Total Contact Cast (TCC) - Left ($) -Treatment Response Procedure Tolerated Well -Debridement - Subq, 1st 20sq cm Yes -Apply Skin Sub - 1st 25 sq cm - Legs 0 -Apligraf (per sq cm) 0 Query Text:1 sheet = 44 sq cm [See Physician Procedure note for Specifics] Pain Scale: 0-10 Numeric [Pain] -Is Patient Pain Free? Yes - Nurse 3 - General Ulcer D/C NN Start: 01/20/21 09:58 Freq: Status: Active Protocol: Activity Type Activity Date Activity User E-Sign Co-Sign Detail Recorded Client Recorded Date Recorded By Document 01/20/21 10:50 DL [id number] 01/20/21 10:52 DL 01/20/21 10:50 Wound Care Nurse 3 [Wound Dressing] #17 R Lat Ankle -Foul Odor after Cleansing No -Other Dressing Apligraf -Other Covering Mepilex #16 L Plantar med foot -Foul Odor after Cleansing No -Other Dressing Aplligraf -Other Covering TCC Covering [Post Procedure Tolerated] -Treatment Response Procedure Tolerated Well Pain Scale: 0-10 Numeric [Pain] -Is Patient Pain Free? Yes - Visit Discharge [Visit Discharge Information] -Discharge Condition Stable -Ambulatory Status Ambulatory -Transportation Private Auto Musculoskeletal: No Tenderness to Palpation of Joints or Extremities, - - Varus foot times noted Neurological: - - Decrease in epicritic sensation Psych/Mental Status: Normal Affect, Appropriate Debridement Note Post-Debridement Measurements/Treatment - Nurse 2 - General Ulcer CM Notes Start: 01/20/21 09:58 Freq: Status: Active Protocol: Activity Type Activity Date Activity User E-Sign Co-Sign Detail Recorded Client Recorded Date Recorded By Document 01/20/21 10:26 LISSY [id number] 01/20/21 10:41 LISSY 01/20/21 10:26 Wound Center Nurse 2 #17 R Lat Ankle -Time 10:31 -Correct Patient Yes -Correct Side, Site, Position Yes -Correct Procedure Yes -Procedure Performed Yes -Type of Procedure Debridement -Clinical Debridement Subcutaneous -Tissue Removed Subcutaneous -Post Debridement (cm) - Length 0.5 -Post Debridement (cm) - Width 0.4 -Post Debridement (cm) - Depth 0.1 -Total Square (Post) (cm) 0.20 -Area of Debridement (cm) - Length 0.5 -Area of Debridement (cm) - Width 0.4 -Total Square (Area) (cm) 0.20 -Tunneling No -Undermining/Tunneling No -Circular Undermining No -Wound/Ulcer Outcome Not Healed -Ulcer Cleansing Rinsed/ Irrigated with Saline -Foul Odor after Cleansing No -Bioengineered Tissue Yes -Type of Bioengineered Tissue Apligraf -Expiration Date 01/27/21 -Product Lot Number [id number] -Percent Used 100 -Lot number of Saline Used [id number] -Bleeding Controlled with Pressure -Offloading No -Treatment Response Procedure Tolerated Well -Debridement - Subq, 1st 20sq cm No -Apply Skin Sub - 1st 25 sq cm - Legs 1 -Apligraf (per sq cm) 44 Query Text:1 sheet = 44 sq cm #16 L Plantar med foot -Time 10:31 -Correct Patient Yes -Correct Side, Site, Position Yes -Correct Procedure Yes -Procedure Performed Yes -Type of Procedure Debridement -Clinical Debridement Subcutaneous -Tissue Removed Subcutaneous -Post Debridement (cm) - Length 3 -Post Debridement (cm) - Width 3 -Post Debridement (cm) - Depth 1 -Total Square (Post) (cm) 9 -Area of Debridement (cm) - Length 3 -Area of Debridement (cm) - Width 3 -Total Square (Area) (cm) 9 -Tunneling No -Undermining/Tunneling No -Circular Undermining No -Wound/Ulcer Outcome Not Healed -Ulcer Cleansing Rinsed/ Irrigated with Saline -Foul Odor after Cleansing No -Bioengineered Tissue Yes -Type of Bioengineered Tissue Apligraf -Expiration Date 01/27/21 -Product Lot Number [id number] -Percent Used 100 -Lot number of Saline Used [id number] -Bleeding Controlled with Pressure -Offloading Yes -Type of Offloading Total Contact Cast (TCC) - Left ($) -Treatment Response Procedure Tolerated Well -Debridement - Subq, 1st 20sq cm Yes -Apply Skin Sub - 1st 25 sq cm - Legs 0 -Apligraf (per sq cm) 0 Query Text:1 sheet = 44 sq cm Pain Scale: 0-10 Numeric Is Patient Pain Free? Yes WC - Nurse 3 - General Ulcer D/C NN Start: 01/20/21 09:58 Freq: Status: Active Protocol: Activity Type Activity Date Activity User E-Sign Co-Sign Detail Recorded Client Recorded Date Recorded By Document 01/20/21 10:50 DL [id number] 01/20/21 10:52 DL 01/20/21 10:50 Wound Care Nurse 3 #17 R Lat Ankle -Foul Odor after Cleansing No -Other Dressing Apligraf -Other Covering Mepilex #16 L Plantar med foot -Foul Odor after Cleansing No -Other Dressing Aplligraf -Other Covering TCC Covering Treatment Response Procedure Tolerated Well Pain Scale: 0-10 Numeric Is Patient Pain Free? Yes WC - Visit Discharge Discharge Condition Stable Ambulatory Status Ambulatory Transportation Private Auto Wound debrided: Lateral ankle Laterality: Right Wound Grade/Stage: Freedman 1 Type of Debridement: Excisional debridement Anesthesia Used: 4% Lidocaine Solution Depth: in the subcutaneous layer Percentage of wound debrided: 100 Instrument Used: 3mm curette Tissue Removed: Tissue removed includes fibrous, devitalized, biofilm, and slough tissue Severity: Fat Layer Exposed Amount of bleeding with debridement: Mild Bleeding Controlled with: Pressure Patient tolerated procedure well - Additional Wound Wound debrided: Plantar foot Laterality: Left Wound Grade/Stage: Freedman 2 Type of Debridement: Excisional debridement Anesthesia Used: 4% Lidocaine Solution Depth: to muscle - Debrided to subcu Percentage of wound debrided: 100 Instrument Used: 3mm curette Tissue Removed: Tissue removed includes fibrous, devitalized, biofilm, and slough tissue Severity: Fat Layer Exposed Amount of bleeding with debridement: Moderate Bleeding Controlled with: Pressure Patient tolerated procedure: Patient tolerated procedure well Assessment/Plan Active Problems (This Medical Record has been edited. Action required.) Ulcer of left foot with necrosis of muscle (Chronic) 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 (Chronic) Charcot's joint of left foot (Chronic) Type 2 diabetes mellitus with diabetic polyneuropathy (Chronic) Delayed wound healing (Chronic) Assessment: Diabetic ulcer of right ankle -, grade 1. Diabetic ulcer plantar left foot- grade 2. Diabetic foot ulcer associated with type 2 diabetes mellitus. Hemoglobin A1c 9.17 Aug 2020. varus deformity bilateral lower extremities. malnutrition suspected. delayed healing. obesity Plan: Patient seen and examined. the right lateral ankle wound is noted to have improved in both depth and size. The left plantar foot ulceration is stable. Patient just returned from vacation to [place]. She relates that she was largely in her wheelchair and was able to stay off her foot and provide dressing changes and wound care. Discussed continuing with the total contact cast on the left foot. The right lateral ankle was approved for Apligraf application today. We will continue with absorbent dressing to left foot under total contact cast. Bilateral ulcerations were debrided after verbal consent was obtained by the patient. Patient provided verbal consent for a left total contact cast. This was applied in a well padded neutral position according standard protocol. The patient tolerated this well. Patient was also advised to keep this clean, dry, and intact until follow-up next week. I recommend application of advanced wound healing product to the right ankle. Prior authorization was confirmed. The indications, benefits, anticipated application and healing time management were reviewed in detail. Verbal consent was obtained in the procedure for today. Site was debrided and graft was applied according to standard protocol and was further secured with a wound veil and Steri-Strips. Patient was admitted to hospital 11/14/20 for altered mental status where TCC was removed and culture of wound was obtained from left foot. Culture grew enterobacter cloacae, klebsiella oxytoca, corynebacterium striatum, and enterocccus faecalis. Dr Tello was contacted about cultures and he prescribed omnicef and lineozilid 12/02/20. Discussed importance of properly cleaning foot and protecting area when in shower as some of the bacteria she grew are commonly found in GI tract. It is noted she is already been undergoing a comprehensive wound healing plan and has delayed and nonhealing. She has had prior bone biopsies, wound culture, and intervention with infectious disease. She has suspected adequate vascular perfusion for healing per her recent noninvasive vascular studies 09/01/2020 with triphasic waveforms noted. Patient's hemoglobin A1c was 9.8 in August 2020. Offloading strongly recommended. Optimal blood sugar control and increased protein intake also discussed. Discussed importance of having her meds with her especially when she is living at her daughters house her meds sh ould be with her there and not at her house where they aren't accessible. All questions were answered and she was advised to call with any further questions or concerns. All signs and symptoms of local and systemic infection were discussed with the patient today. Follow up in 1 week. This note was generated with [employer] dictation software. It may contain incorrect words, spelling, and punctuation that were not noted in checking the note before signing.
[2021-01-27 09:52] VITALS: BP 126/68; PULSE 80; RESP 18; TEMP 36.4; BMI 31.5
--- NOTE | 2021-01-27 12:37 | PCM.WC.PN ---
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 left foot ulcer History of Wound: Patient is a 55-year-old female who presents to the clinic for follow-up of hospital stay for a left foot chronic ulceration. Patient had MRI on 09/01/2020 showing 1. Large 5.81 x 1.70 cm open skin defect/wound on the lateral plantaraspect of the foot contains fluid and debris and can be a infected. The investing fascia and the plantar aspect of the foot beneath the fourth metatarsal bone encloses the complex fluid collection, and there is no demonstrated intramuscular extension or contact with the overlying bony structures. 2. Mild cortical irregularity is present at the base and plantar and lateral aspect of the fifth metatarsal bone and cuboid which could be related to prior infection or sequela from previous trauma. 3. No active bone marrow edema or cortical erosion is seen to suggest. active osteomyelitis. Patient had an I&D performed in the hospital by Dr. Guadarrama on 09/08/2020. That time patient was noted to have infection to left foot wound with Staphylococcus and Enterobacter which was treated during her stay at the hospital and TCU. Patient has had this ulceration for quite some time. 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 Patient also was noted to have bilateral varus foot deformity. Patient has a noted history of poor compliance of medical recommendations. Patient presents to the office ambulating in TCC unassisted. She states that she cannot do nonweightbearing with the crutches as she is afraid she will fall. Patient had [facility] PT that has since finished and patient states she never felt stable. Patient was noted to have course of antibiotics while in the hospital in August 2020. Since being discharged from the hospital August 2020 patient has missed several of her follow-up appointments including here at the wound care center as well as with her primary care physician. She states issues with transportation. Patient missed follow-up appointment with infectious disease on November 12, 2020. She states that she saw them 11/26/2020. She states he didn't do anything. She was admitted to the hospital 11/14/20 for altered mental status. She was found to have had 2 mini strokes per patient. The TCC was removed at that time and patient was to resume wound vac. Culture was obtained in the hospital growing enterobacter cloacae, klebsiella oxytoca, corynebacterium striatum, and enterococcus faecalis. This wasn't treated while in the hospital. Dr Tello was contacted and he started her on linezolid and omnicef 12/02/20. Patient also relates that she is largely nonweightbearing by sitting in a chair or on the couch she also uses a wheelchair at home. She states she moved back in with her daughter. She does admit to walking around without the boot to protect the total contact cast. She does admit to external rotation of the lower extremities which could be a contributing factor to ulcer breakdown of the right lateral ankle. She also admits to having offloading boot that she does not wear at night as she states she kicks it off due to her restless leg syndrome. She relates that she has a in [place] and visits him for months at a time when she has the funds. This has contributed to her noncompliance. Patient also relates having ulceration to the right lateral ankle that began in the middle of September 2020 she believes that this started while sleeping with her restless leg syndrome. Patient expresses concern over losing her foot but seems reluctant to follow treatment recommendations. She does not seem willing or capable to follow instructions. Patient relates that she had her cardiology appointment last week and has another one again tomorrow. Patient relates recent stent placement as well as being told that she has poor output to her heart. She relates that she has a family history of chronic heart disease requiring bypass and other interventions. Patient relates that she kicked off her wound graft to the ankle again due to her restless leg syndrome. Patient also noted to have cracked her cast again this week. Progress of Wound: Improved left plantar wound. Stable right ankle wound Subjective: Patient seen and examined resting comfortably. Patient denies any new pedal complaints. Patient denies any nausea, fever, chills, chest pain, shortness of breath, cough, streaking, purulence, vomiting. - Physical Exam Vital Signs Temp Pulse Resp BP 97.5 F L 80 18 126/68 H 01/27/21 09:52 01/27/21 09:52 01/27/21 09:52 01/27/21 09:52 General: Alert, Oriented x3 HEENT: Atraumatic Abdomen: Obese Extremities: No clubbing, No cyanosis, No edema, Capillary Refill Less than 3 Seconds, No Calf Tenderness, Diminished Peripheral Pulses Skin: Ulcer/ Wound - Right lateral ankle and left plantar foot ulcerations. No malodor, erythema, purulence, probing to bone, streaking, fluctuation, crepitus, or other signs of infection. Skin is atrophic and hairless. Granular base. Significant improvement in depth of left foot wound no longer probes near bone., - - Minor callus tissue noted periwound left foot Wound Measurements and Assessment WC - Nurse 1 - General Ulcer Measurement Start: 01/20/21 09:58 Freq: Status: Active Protocol: Activity Type Activity Date Activity User E-Sign Co-Sign Detail Recorded Client Recorded Date Recorded By Document 01/27/21 09:52 [facility] [id number] 01/27/21 10:09 [facility] 01/27/21 09:52 Wound Center Nurse 1 [Ulcer Assessment] #17 R Lat Ankle -Combined with other wound No -Current Size (cm) - Length 0.5 -Current Size (cm) - Width 1 -Current Size (cm) - Depth 0.5 -Total Square Cm 0.5 -Photo Taken No -Epithelialization None Present -Tunneling No -Undermining/Tunneling No -Circular Undermining No -Exudate Amt Small -Exudate Type Serosanguineous -Wound Margin Distinct, Outline Attached -Granulation Amt Large (67-100%) -Granulation Quality Red -Slough/Fibrin Yes -Necrosis Amt Small (1-33%) -Necrotic Tissue Type Adherent Slough -Texture (Natacha-wound Skin Appearance) Assessed, Scarring -Moisture (Natacha-wound Skin Appearance Assessed,Dry/ ) Scaly -Color (Natacha-wound Skin Appearance) Assessed -Temperature (Natacha-wound Skin No Abnormality Appearance) (Pt Warm) -Tenderness on Palpation (Natacha-wound No Skin Appearance) -Ulcer Cleansing soapy water -Foul Odor after Cleansing No -Anesthetic Used 5% Lidocaine Gel #16 L Plantar med foot -Combined with other wound No -Current Size (cm) - Length 2.5 -Current Size (cm) - Width 1.9 -Current Size (cm) - Depth 0.5 -Total Square Cm 4.75 -Photo Taken No -Epithelialization None Present -Tunneling No -Undermining/Tunneling Yes -Undermining/Tunneling Starts (O' 11 clock) -Undermining/Tunneling Ends (O'clock) 1 -Maximum Distance (cm) 0.5 -Circular Undermining No -Exudate Amt Large -Exudate Type Serosanguineous -Wound Margin Thickened & Rolled Under -Granulation Amt Large (67-100%) -Granulation Quality [place] -Slough/Fibrin Yes -Necrosis Amt Small (1-33%) -Necrotic Tissue Type Adherent Slough -Texture (Natacha-wound Skin Appearance) Assessed,Callus ,Scarring -Moisture (Natacha-wound Skin Appearance Assessed,Dry/ ) Scaly -Color (Natacha-wound Skin Appearance) Assessed -Temperature (Natacha-wound Skin No Abnormality Appearance) (Pt Warm) -Tenderness on Palpation (Natacha-wound No Skin Appearance) -Ulcer Cleansing soapy water -Foul Odor after Cleansing No -Anesthetic Used 5% Lidocaine Gel WC - Nurse 2 - General Ulcer CM Notes Start: 01/20/21 09:58 Freq: Status: Active Protocol: Activity Type Activity Date Activity User E-Sign Co-Sign Detail Recorded Client Recorded Date Recorded By Document 01/27/21 10:33 LISSY [id number] 01/27/21 10:37 LISSY 01/27/21 10:33 Wound Center Nurse 2 [Procedure/Treatment] #17 R Lat Ankle -Time 10:34 -Correct Patient Yes -Correct Side, Site, Position Yes -Correct Procedure Yes -Procedure Performed Yes -Type of Procedure Debridement -Clinical Debridement Subcutaneous -Tissue Removed Subcutaneous -Post Debridement (cm) - Length 0.3 -Post Debridement (cm) - Width 0.5 -Post Debridement (cm) - Depth 0.1 -Total Square (Post) (cm) 0.15 -Area of Debridement (cm) - Length 0.3 -Area of Debridement (cm) - Width 0.5 -Total Square (Area) (cm) 0.15 -Tunneling No -Undermining/Tunneling No -Circular Undermining No -Wound/Ulcer Outcome Not Healed -Ulcer Cleansing Rinsed/ Irrigated with Saline -Foul Odor after Cleansing No -Bioengineered Tissue Yes -Type of Bioengineered Tissue Apligraf -Expiration Date 02/05/21 -Product Lot Number [id number] -Percent Used 100 -Lot number of Saline Used [id number] -Bleeding Controlled with Pressure -Offloading No -Treatment Response Procedure Tolerated Well -Debridement - Subq, 1st 20sq cm No -Apply Skin Sub - 1st 25 sq cm - Legs 1 -Apligraf (per sq cm) 44 Query Text:1 sheet = 44 sq cm #16 L Plantar med foot -Time 10:35 -Correct Patient Yes -Correct Side, Site, Position Yes -Correct Procedure Yes -Procedure Performed Yes -Type of Procedure Debridement -Clinical Debridement Subcutaneous -Tissue Removed Subcutaneous -Post Debridement (cm) - Length 2.7 -Post Debridement (cm) - Width 1.9 -Post Debridement (cm) - Depth 0.5 -Total Square (Post) (cm) 5.13 -Area of Debridement (cm) - Length 2.7 -Area of Debridement (cm) - Width 1.9 -Total Square (Area) (cm) 5.13 -Tunneling No -Undermining/Tunneling No -Circular Undermining No -Wound/Ulcer Outcome Not Healed -Ulcer Cleansing Rinsed/ Irrigated with Saline -Foul Odor after Cleansing No -Bioengineered Tissue Yes -Type of Bioengineered Tissue Apligraf -Expiration Date 02/05/21 -Product Lot Number [id number] -Percent Used 100 -Lot number of Saline Used [id number] -Bleeding Controlled with Pressure -Offloading Yes -Type of Offloading Total Contact Cast (TCC) - Left ($) -Treatment Response Procedure Tolerated Well -Debridement - Subq, 1st 20sq cm Yes -Apply Skin Sub - 1st 25 sq cm - Legs 0 -Apligraf (per sq cm) 0 Query Text:1 sheet = 44 sq cm [See Physician Procedure note for Specifics] Pain Scale: 0-10 Numeric [Pain] -Is Patient Pain Free? Yes - Nurse 3 - General Ulcer D/C NN Start: 01/20/21 09:58 Freq: Status: Active Protocol: Activity Type Activity Date Activity User E-Sign Co-Sign Detail Recorded Client Recorded Date Recorded By Document 01/27/21 10:57 DL [id number] 01/27/21 11:00 DL 01/27/21 10:57 Wound Care Nurse 3 [Wound Dressing] #17 R Lat Ankle -Foul Odor after Cleansing No -Other Dressing Apligraf -Primary Dressing Covered/Secured Dry Gauze & with Roll Gauze, Secured with Tape -Other Covering super absorbant drsg/ EXCELsap #16 L Plantar med foot -Foul Odor after Cleansing No -Other Dressing Apligraf -Primary Dressing Covered/Secured Dry Gauze & with Roll Gauze, Secured with Tape [Post Procedure Tolerated] -Treatment Response Procedure Tolerated Well Pain Scale: 0-10 Numeric [Pain] -Is Patient Pain Free? Yes - Visit Discharge [Visit Discharge Information] -Discharge Condition Stable -Ambulatory Status Ambulatory -Transportation Private Auto -Notes: TCC undercasting applied per Shiva Reynolds today. Musculoskeletal: Muscle Wasting, Tenderness - To ulceration especially left plantar foot wound, - - Varus foot type Neurological: - - Decrease in epicritic sensation Psych/Mental Status: Normal Affect, Appropriate Debridement Note Post-Debridement Measurements/Treatment - Nurse 2 - General Ulcer CM Notes Start: 01/20/21 09:58 Freq: Status: Active Protocol: Activity Type Activity Date Activity User E-Sign Co-Sign Detail Recorded Client Recorded Date Recorded By Document 01/20/21 10:26 [id number] 01/20/21 10:41 Document 01/27/21 10:33 [id number] 01/27/21 10:37 01/20/21 01/27/21 10:26 10:33 Wound Center Nurse 2 #17 R Lat Ankle -Time 10:31 10:34 -Correct Patient Yes Yes -Correct Side, Site, Position Yes Yes -Correct Procedure Yes Yes -Procedure Performed Yes Yes -Type of Procedure Debridement Debridement -Clinical Debridement Subcutaneous Subcutaneous -Tissue Removed Subcutaneous Subcutaneous -Post Debridement (cm) - Length 0.5 0.3 -Post Debridement (cm) - Width 0.4 0.5 -Post Debridement (cm) - Depth 0.1 0.1 -Total Square (Post) (cm) 0.20 0.15 -Area of Debridement (cm) - Length 0.5 0.3 -Area of Debridement (cm) - Width 0.4 0.5 -Total Square (Area) (cm) 0.20 0.15 -Tunneling No No -Undermining/Tunneling No No -Circular Undermining No No -Wound/Ulcer Outcome Not Healed Not Healed -Ulcer Cleansing Rinsed/ Rinsed/ Irrigated with Irrigated with Saline Saline -Foul Odor after Cleansing No No -Bioengineered Tissue Yes Yes -Type of Bioengineered Tissue Apligraf Apligraf -Expiration Date 01/27/21 02/05/21 -Product Lot Number [id number] -Percent Used 100 100 -Lot number of Saline Used [id number] -Bleeding Controlled with Pressure Pressure -Offloading No No -Treatment Response Procedure Procedure Tolerated Well Tolerated Well -Debridement - Subq, 1st 20sq cm No No -Apply Skin Sub - 1st 25 sq cm - Legs 1 1 -Apligraf (per sq cm) 44 44 Query Text:1 sheet = 44 sq cm #16 L Plantar med foot -Time 10:31 10:35 -Correct Patient Yes Yes -Correct Side, Site, Position Yes Yes -Correct Procedure Yes Yes -Procedure Performed Yes Yes -Type of Procedure Debridement Debridement -Clinical Debridement Subcutaneous Subcutaneous -Tissue Removed Subcutaneous Subcutaneous -Post Debridement (cm) - Length 3 2.7 -Post Debridement (cm) - Width 3 1.9 -Post Debridement (cm) - Depth 1 0.5 -Total Square (Post) (cm) 9 5.13 -Area of Debridement (cm) - Length 3 2.7 -Area of Debridement (cm) - Width 3 1.9 -Total Square (Area) (cm) 9 5.13 -Tunneling No No -Undermining/Tunneling No No -Circular Undermining No No -Wound/Ulcer Outcome Not Healed Not Healed -Ulcer Cleansing Rinsed/ Rinsed/ Irrigated with Irrigated with Saline Saline -Foul Odor after Cleansing No No -Bioengineered Tissue Yes Yes -Type of Bioengineered Tissue Apligraf Apligraf -Expiration Date 01/27/21 02/05/21 -Product Lot Number [id number] -Percent Used 100 100 -Lot number of Saline Used [id number] -Bleeding Controlled with Pressure Pressure -Offloading Yes Yes -Type of Offloading Total Contact Total Contact Cast (TCC) - Cast (TCC) - Left ($) Left ($) -Treatment Response Procedure Procedure Tolerated Well Tolerated Well -Debridement - Subq, 1st 20sq cm Yes Yes -Apply Skin Sub - 1st 25 sq cm - Legs 0 0 -Apligraf (per sq cm) 0 0 Query Text:1 sheet = 44 sq cm Pain Scale: 0-10 Numeric Is Patient Pain Free? Yes Yes - Nurse 3 - General Ulcer D/C NN Start: 01/20/21 09:58 Freq: Status: Active Protocol: Activity Type Activity Date Activity User E-Sign Co-Sign Detail Recorded Client Recorded Date Recorded By Document 01/20/21 10:50 DL [id number] 01/20/21 10:52 DL Document 01/27/21 10:57 DL [id number] 01/27/21 11:00 DL 01/20/21 01/27/21 10:50 10:57 Wound Care Nurse 3 #17 R Lat Ankle -Foul Odor after Cleansing No No -Other Dressing Apligraf Apligraf -Primary Dressing Covered/Secured with Dry Gauze & Roll Gauze, Secured with Tape -Other Covering Mepilex super absorbant drsg/ EXCELsap #16 L Plantar med foot -Foul Odor after Cleansing No No -Other Dressing Aplligraf Apligraf -Primary Dressing Covered/Secured with Dry Gauze & Roll Gauze, Secured with Tape -Other Covering TCC Covering Treatment Response Procedure Procedure Tolerated Well Tolerated Well Pain Scale: 0-10 Numeric Is Patient Pain Free? Yes Yes - Visit Discharge Discharge Condition Stable Stable Ambulatory Status Ambulatory Ambulatory Transportation Private Auto Private Auto Notes: TCC undercasting applied per Shiva Reynolds today. Wound debrided: Lateral ankle Laterality: Right Wound Grade/Stage: Freedman 1 Type of Debridement: Excisional debridement Anesthesia Used: 4% Lidocaine Solution Depth: in the subcutaneous layer Percentage of wound debrided: 100 Instrument Used: 3mm curette Tissue Removed: Tissue removed includes fibrous, devitalized, biofilm, and slough tissue Severity: Fat Layer Exposed Amount of bleeding with debridement: Mild Bleeding Controlled with: Pressure Patient tolerated procedure well - Additional Wound Wound debrided: Plantar lateral midfoot Laterality: Left Wound Grade/Stage: Freedman 2 Type of Debridement: Excisional debridement Anesthesia Used: 4% Lidocaine Solution Depth: in the subcutaneous layer Percentage of wound debrided: 100 Instrument Used: 3mm curette Tissue Removed: Tissue removed includes fibrous, devitalized, biofilm, callus,slough tissue Amount of bleeding with debridement: Moderate Bleeding Controlled with: Pressure Patient tolerated procedure: Patient tolerated procedure well Assessment/Plan Active Problems (This Medical Record has been edited. Action required.) Ulcer of left foot with necrosis of muscle (Chronic) 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 (Chronic) Charcot's joint of left foot (Chronic) Type 2 diabetes mellitus with diabetic polyneuropathy (Chronic) Delayed wound healing (Chronic) Assessment: Diabetic ulcer of right ankle -, grade 1. Diabetic ulcer plantar left foot- grade 2. Diabetic foot ulcer associated with type 2 diabetes mellitus. Hemoglobin A1c 9.17 Aug 2020. varus deformity bilateral lower extremities. malnutrition suspected. delayed healing. obesity Plan: Patient seen and examined. the right lateral ankle wound is noted to have improved in both depth and size. The left plantar foot ulceration is also significantly less in depth and no longer probes near bone. Patient relates her restless leg syndrome had her kick off her dressing to her right lateral ankle on Tuesday. Patient was also noted to have cracked her total contact cast again. Again relayed to the patient the importance of wearing the boot with a total contact cast in order to prevent it from cracking. I am reluctant to stop total contact cast management at this time?patient has had significant improvement in the wound since cast applications began. So far there is been no new wound development is due to cast breaking. Discussed continuing with the total contact cast on the left foot. The right lateral ankle was approved for Apligraf application today. We will continue with absorbent dressing to left foot under total contact cast. Bilateral ulcerations were debrided after verbal consent was obtained by the patient. Patient provided verbal consent for a left total contact cast. This was applied in a well padded neutral position according standard protocol. The patient tolerated this well. Patient was also advised to keep this clean, dry, and intact until follow-up next week. I recommend application of advanced wound healing product to the right ankle. Prior authorization was confirmed. The indications, benefits, anticipated application and healing time management were reviewed in detail. Verbal consent was obtained in the procedure for today. Site was debrided and graft was applied according to standard protocol and was further secured with a wound veil and Steri-Strips. Patient was admitted to hospital 11/14/20 for altered mental status where TCC was removed and culture of wound was obtained from left foot. Culture grew enterobacter cloacae, klebsiella oxytoca, corynebacterium striatum, and enterocccus faecalis. Dr Tello was contacted about cultures and he prescribed omnicef and lineozilid 12/02/20. Discussed importance of properly cleaning foot and protecting area when in shower as some of the bacteria she grew are commonly found in GI tract. Patient has since finished her antibiotics. There is no signs of infection at this time. It is noted she is already been undergoing a comprehensive wound healing plan and has delayed and nonhealing. She has had prior bone biopsies, wound culture, and intervention with infectious disease. She has suspected adequate vascular perfusion for healing per her recent noninvasive vascular studies 09/01/2020 with triphasic waveforms noted. Patient's hemoglobin A1c was 9.8 in August 2020. Offloading strongly recommended. Optimal blood sugar control and increased protein intake also discussed. Discussed importance of having her meds with her especially when she is living at her daughters house her meds should be with her there and not at her house where they aren't accessible. All questions were answered and she was advised to call with any further questions or concerns. All signs and symptoms of local and systemic infection were discussed with the patient today. We have since finished all applications of Apligraf approved for the right lateral ankle. With resolution of infection and improvement noted in wound to left foot we will apply for epi fix and epic cord to the left foot wound. Plan to continue total contact cast to left side for continued improvement. Follow up in 1 week. This note was generated with [employer] software. It may contain incorrect words, spelling, and punctuation that were not noted in checking the note before signing.
[2021-02-03 11:33] VITALS: BP 121/62; PULSE 95; RESP 16; TEMP 36.8; BMI 31.5
--- NOTE | 2021-02-03 11:42 | WC ---
APLIGRAPH LEFT INTACT
--- NOTE | 2021-02-03 18:01 | PCM.WC.PN ---
History of Present Illness Date of Service: 02/03/21 Chief Complaint: Right ankle diabetic ulcer- healed left foot ulcer History of Wound: Patient is a 55-year-old female who presents to the clinic for follow-up of hospital stay for a left foot chronic ulceration. Patient had MRI on 09/01/2020 showing 1. Large 5.81 x 1.70 cm open skin defect/wound on the lateral plantar aspect of the foot contains fluid and debris and can be a infected. The investing fascia and the plantar aspect of the foot beneath the fourth metatarsal bone encloses the complex fluid collection, and there is no demonstrated intramuscular extension or contact with the overlying bony structures. 2. Mild cortical irregularity is present at the base and plantar and lateral aspect of the fifth metatarsal bone and cuboid which could be related to prior infection or sequela from previous trauma. 3. No active bone marrow edema or cortical erosion is seen to suggest active osteomyelitis. Patient had an I&D performed in the hospital by Dr. Guadarrama on 09/08/2020. That time patient was noted to have infection to left foot wound with Staphylococcus and Enterobacter which was treated during her stay at the hospital and TCU. Patient has had this ulceration for quite some time. 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 Patient also was noted to have bilateral varus foot deformity. Patient has a noted history of poor compliance of medical recommendations. Patient presents to the office ambulating in TCC unassisted. Patient was noted to have course of antibiotics while in the hospital in August 2020. Since being discharged from the hospital August 2020 patient has missed several of her follow-up appointments including here at the wound care center as well as with her primary care physician. She states issues with transportation. Patient missed follow-up appointment with infectious disease on November 12, 2020. She states that she saw them 11/26/2020. She states he didn't do anything She was admitted to the hospital 11/14/20 for altered mental status. She was found to have had 2 mini strokes per patient. The TCC was removed at that time and patient was to resume wound vac. Culture was obtained in the hospital growing enterobacter cloacae, klebsiella oxytoca, corynebacterium striatum, and enterococcus faecalis. This wasn't treated while in the hospital. Dr Tello was contacted and he started her on linezolid and omnicef 12/02/20. Patient also relates that she is largely non weight bearing by sitting in a chair or on the couch she also uses a wheelchair at home. She states she moved back in with her daughter. She does admit to walking around without the boot to protect the total contact cast. She has broken the TCC multiple times She does admit to external rotation of the lower extremities which could be a contributing factor to ulcer breakdown of the right lateral ankle. She also admits to having offloading boot that she does not wear at night as she states she kicks it off due to her restless leg syndrome. This has since healed- right lateral ankle She relates that she has a in [place] and visits him for months at a time when she has the funds. This has contributed to her noncompliance Patient expresses concern over losing her foot but seems reluctant to follow treatment recommendations. She does not seem willing or capable to follow instructions. Patient relates that she kicked off her wound graft to the ankle again due to her restless leg syndrome. Patient also noted to have cracked her cast again this week. Subjective Subjective: Patient is resting comfortably and denies any new pedal complains. 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 (2) 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: Status: Resolved Code(s): L97.312 - Non-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 (3) Charcot's joint of left foot: Status: Chronic Code(s): M14.672 - Charcot's joint, left ankle and foot (4) Type 2 diabetes mellitus with diabetic polyneuropathy: Status: Chronic Code(s): E11.42 - Type 2 diabetes mellitus with diabetic polyneuropathy Qualifiers: Diabetes mellitus rn long term care insulin use: with rn long term care use Qualified Code(s): E11.42 - Type 2 diabetes mellitus with diabetic polyneuropathy; Z79.4 - correction (current) use of insulin (5) Delayed wound healing: Status: Chronic Code(s): T14.8XXD - Other injury of unspecified body region, subsequent encounter Plan: Assessment: Diabetic ulcer of right ankle -, grade 1. healed Diabetic ulcer plantar left foot- grade 2. Diabetic foot ulcer associated with type 2 diabetes mellitus. Hemoglobin A1c 9.17 Aug 2020. varus/charcot deformity bilateral lower extremities. malnutrition suspected. delayed healing. obesity Plan: Patient seen and examined. the right lateral ankle wound is noted to have healed. The left plantar foot ulceration is also significantly less in depth and no longer probes near bone. Patient was also noted to have cracked her total contact cast again. Again relayed to the patient the importance of wearing the boot with a total contact cast in order to prevent it from cracking. I am reluctant to stop total contact cast management at this time?patient has had significant improvement in the wound since cast applications began. So far there is been no new wound development is due to cast breaking. Discussed continuing with the total contact cast on the left foot. The left plantar foot ulceration was approved for epi fix graft application ulceration was debrided after verbal consent was obtained by the patient. I recommend application of advanced wound healing product to the left plantar foot ulceration. Prior authorization was confirmed. The indications, benefits, anticipated application and healing time management were reviewed in detail. Verbal consent was obtained in the procedure for today. Site was debrided and graft was applied according to standard protocol and was further secured with a wound veil and Steri-Strips. Patient provided verbal consent for a left total contact cast. This was applied in a well padded neutral position according standard protocol. The patient tolerated this well. Patient was also advised to keep this clean, dry, and intact until follow-up next week. Patient was admitted to hospital 11/14/20 for altered mental status where TCC was removed and culture of wound was obtained from left foot. Culture grew enterobacter cloacae, klebsiella oxytoca, corynebacterium striatum, and enterocccus faecalis. Dr Tello was contacted about cultures and he prescribed omnicef and lineozilid 12/02/20. Discussed importance of properly cleaning foot and protecting area when in shower as some of the bacteria she grew are commonly found in GI tract. Patient has since finished her antibiotics. There is no signs of infection at this time. It is noted she is already been undergoing a comprehensive wound healing plan and has delayed and nonhealing. She has had prior bone biopsies, wound culture, and intervention with infectious disease. She has suspected adequate vascular perfusion for healing per her recent noninvasive vascular studies 09/01/2020 with triphasic waveforms noted. Patient's hemoglobin A1c was 9.8 in August 2020. Offloading strongly recommended. Optimal blood sugar control and increased protein intake also discussed. All questions were answered and she was advised to call with any further questions or concerns. All signs and symptoms of local and systemic infection were discussed with the patient today. Follow up in 1 week. This note was generated with [employer] dictation software. It may contain incorrect words, spelling, and punctuation that were not noted in checking the note before signing. Physical Exam Const alert and no apparent distress General Appearance: cooperative and comfortable HEENT Head and Scalp: atraumatic Lymph Lymphatic: no lymphedema noted Resp normal respiratory effort Effort and Inspection: able to speak in complete sentences Extremity normal capillary refill, no calf tenderness and no pedal edema General Extremity: no tenderness to palpation of joints or extremities; Negative for clubbing or cyanosis Peripheral Pulses: Yes popliteal pulses present bilateral diminished and posterior tibial pulses present bilateral diminished Skin General Skin Exam: venous stasis; Negative for ecchymosis, erythema, eschar, pallor or dermatitis Rashes: no rashes Wounds: wounds noted Wound Narrative: ulcers noted to left plantar foot. Ulceration noted to right lateral ankle is noted to have been healed. No malodor, erythema, purulence, probing to bone, streaking, fluctuation, crepitus, or other signs of infection. Skin is atrophic and hairless. Granular base. Surrounding callus tissue. Patient noted to have a varus foot type. Neuro Gait (Neuro): antalgic Sensory Exam: extremities light-touch: decreased Motor Exam: strength 5/5 throughout Psych Appearance: appropriate Attitude: calm Debridement Note Debridement Note Post-Debridement Measurements and Additional Note: Post-Debridement Measurements/Treatment WC - Nurse 2 - General Ulcer CM Notes Start: 01/20/21 09:58 Freq: Status: Active Protocol: Activity Type Activity Date Activity User E-Sign Co-Sign Detail Recorded Client Recorded Date Recorded By Document 01/20/21 10:26 [id number] 01/20/21 10:41 Document 01/27/21 10:33 [id number] 01/27/21 10:37 Document 02/03/21 12:08 [id number] 02/03/21 12:11 01/20/21 01/27/21 02/03/21 10:26 10:33 12:08 Wound Center Nurse 2 #17 R Lat Ankle -Time 10:31 10:34 -Correct Patient Yes Yes No -Correct Side, Site, Position Yes Yes No -Correct Procedure Yes Yes No -Procedure Performed Yes Yes No -Type of Procedure Debridement Debridement -Clinical Debridement Subcutaneous Subcutaneous -Tissue Removed Subcutaneous Subcutaneous -Post Debridement (cm) - Length 0.5 0.3 0 -Post Debridement (cm) - Width 0.4 0.5 0 -Post Debridement (cm) - Depth 0.1 0.1 0 -Total Square (Post) (cm) 0.20 0.15 0 -Area of Debridement (cm) - Length 0.5 0.3 0 -Area of Debridement (cm) - Width 0.4 0.5 0 -Total Square (Area) (cm) 0.20 0.15 0 -Tunneling No No -Undermining/Tunneling No No -Circular Undermining No No -Wound/Ulcer Outcome Not Healed Not Healed Healed- Epithelialized -Ulcer Cleansing Rinsed/ Rinsed/ Irrigated with Irrigated with Saline Saline -Foul Odor after Cleansing No No -Bioengineered Tissue Yes Yes -Type of Bioengineered Tissue Apligraf Apligraf -Expiration Date 01/27/21 02/05/21 -Product Lot Number [id number] -Percent Used 100 100 -Lot number of Saline Used [id number] -Bleeding Controlled with Pressure Pressure -Offloading No No -Treatment Response Procedure Procedure Tolerated Well Tolerated Well -Debridement - Subq, 1st 20sq cm No No -Apply Skin Sub - 1st 25 sq cm - Legs 1 1 -Apligraf (per sq cm) 44 44 #16 L Plantar med foot -Time 10:31 10:35 12:09 -Correct Patient Yes Yes Yes -Correct Side, Site, Position Yes Yes Yes -Correct Procedure Yes Yes Yes -Procedure Performed Yes Yes Yes -Type of Procedure Debridement Debridement Debridement -Clinical Debridement Subcutaneous Subcutaneous Subcutaneous -Tissue Removed Subcutaneous Subcutaneous Subcutaneous -Post Debridement (cm) - Length 3 2.7 2.5 -Post Debridement (cm) - Width 3 1.9 2 -Post Debridement (cm) - Depth 1 0.5 0.4 -Total Square (Post) (cm) 9 5.13 5.0 -Area of Debridement (cm) - Length 3 2.7 2.5 -Area of Debridement (cm) - Width 3 1.9 2 -Total Square (Area) (cm) 9 5.13 5.0 -Tunneling No No No -Undermining/Tunneling No No No -Circular Undermining No No No -Wound/Ulcer Outcome Not Healed Not Healed Not Healed -Ulcer Cleansing Rinsed/ Rinsed/ Rinsed/ Irrigated with Irrigated with Irrigated with Saline Saline Saline -Foul Odor after Cleansing No No No -Bioengineered Tissue Yes Yes Yes -Type of Bioengineered Tissue Apligraf Apligraf Epifix -Expiration Date 01/27/21 02/05/21 07/10/25 -Product Lot Number [id number] -Percent Used 100 100 100 -Lot number of Saline Used [id number] -Bleeding Controlled with Pressure Pressure Pressure -Offloading Yes Yes Yes -Type of Offloading Total Contact Total Contact Total Contact Cast (TCC) - Cast (TCC) - Cast (TCC) - Left ($) Left ($) Left ($) -Treatment Response Procedure Procedure Procedure Tolerated Well Tolerated Well Tolerated Well -Debridement - Subq, 1st 20sq cm Yes Yes No -Apply Skin Sub - 1st 25 sq cm - Legs 0 0 -Apply Skin Sub - 1st 25 sq cm - Feet 1 -Apligraf (per sq cm) 0 0 -Epifix (per sq cm) 4 Pain Scale: 0-10 Numeric Is Patient Pain Free? Yes Yes Yes WC - Nurse 3 - General Ulcer D/C NN Start: 01/20/21 09:58 Freq: Status: Active Protocol: Activity Type Activity Date Activity User E-Sign Co-Sign Detail Recorded Client Recorded Date Recorded By Document 01/20/21 10:50 DL [id number] 01/20/21 10:52 DL Document 01/27/21 10:57 DL [id number] 01/27/21 11:00 DL Edit Result 01/27/21 10:57 DL (1) [id number] 01/27/21 11:01 DL Document 02/03/21 12:15 DL [id number] 02/03/21 12:18 DL (1) #16 L Plantar med foot - Other Covering EXCELsap => 01/20/21 01/27/21 02/03/21 10:50 10:57 12:15 Wound Care Nurse 3 #17 R Lat Ankle -Foul Odor after Cleansing No No -Other Dressing Apligraf Apligraf -Primary Dressing Covered/Secured with Dry Gauze & Roll Gauze, Secured with Tape -Other Covering Mepilex super absorbant drsg/ EXCELsap #16 L Plantar med foot -Foul Odor after Cleansing No No No -Other Dressing Aplligraf Apligraf Epifix/ Swoope super absorber -Primary Dressing Covered/Secured with Dry Gauze & Roll Gauze, Secured with Tape -Other Covering TCC Covering TCC undercasting applied Treatment Response Procedure Procedure Procedure Tolerated Well Tolerated Well Tolerated Well Pain Scale: 0-10 Numeric Is Patient Pain Free? Yes Yes Yes WC - Visit Discharge Discharge Condition Stable Stable Stable Ambulatory Status Ambulatory Ambulatory Ambulatory Transportation Private Auto Private Auto Private Auto Notes: TCC undercasting applied per Shiva cheng. Facility Type Home Health Notes: cast applied per Dr. Cuevas Wound debrided: Plantar foot Laterality: Left Wound Grade/Stage: Freedman 1 Type of Debridement: Excisional debridement Anesthesia Used: 4% Lidocaine Solution Depth: in the subcutaneous layer Percentage of wound debrided: 100 Instrument Used: 3mm curette Tissue Removed: includes fibrous, devitalized, biofilm, callus and slough tissue Severity: Fat Layer Exposed Amount of bleeding with debridement: Mild Bleeding Controlled with: Pressure Patient tolerated procedure: Patient tolerated procedure well
== END 2021-02-06 23:59 ==
LOC: WC 11:25
PROVIDERS: PCP Family Medicine; Referring Provider Podiatrist; Visit Provider Podiatrist Foot & Ankle Surgery
DX: E11.621 Type 2 diabetes mellitus with foot ulcer (principal); L97.523 Non-pressure chronic ulcer of other part of left foot with necrosis of muscle; L97.312 Non-pressure chronic ulcer of right ankle with fat layer exposed; M14.672 Charcot's joint, left ankle and foot; M21.172 Varus deformity, not elsewhere classified, left ankle; M21.171 Varus deformity, not elsewhere classified, right ankle; E11.42 Type 2 diabetes mellitus with diabetic polyneuropathy; G25.81 Restless legs syndrome; E66.9 Obesity, unspecified; Z91.19 Patient's noncompliance with other medical treatment and regimen; Z79.02 Long term (current) use of antithrombotics/antiplatelets; Z79.82 Long term (current) use of aspirin; Z79.4 Long term (current) use of insulin; Z79.899 Other long term (current) drug therapy; Z86.73 Personal history of transient ischemic attack (TIA), and cerebral infarction without residual deficits
CPT/HCPCS: 11042; 15271; 15275; 29445; Q4101; Q4186

== ENCOUNTER 2021-02-24 09:00 | Outpatient (RCR) | payer MEDICARE, MEDICAID, SELFPAY ==
[2018-09-21 13:23] VITALS: BMI 29.3
[2021-02-07 00:24] VITALS: BP 121/62; PULSE 95; RESP 16; TEMP 36.8; BMI 30.7
[2021-02-10 08:23] VITALS: BP 146/79; PULSE 95; RESP 20; TEMP 36; BMI 30.7
--- NOTE | 2021-02-10 12:12 | PN.PCM_ITS ---
History of Present Illness Date of Service: 02/10/21 Chief Complaint: Right ankle diabetic ulcer- healed left foot ulcer History of Wound: Patient is a 55-year-old female who presents to the clinic for follow-up of hospital stay for a left foot chronic ulceration. Patient had MRI on 09/01/2020 showing 1. Large 5.81 x 1.70 cm open skin defect/wound on the lateral plantar aspect of the foot contains fluid and debris and can be a infected. The investing fascia and the plantar aspect of the foot beneath the fourth metatarsal bone encloses the complex fluid collection, and there is no demonstrated intramuscular extension or contact with the overlying bony structures. 2. Mild cortical irregularity is present at the base and plantar and lateral aspect of the fifth metatarsal bone and cuboid which could be related to prior infection or sequela from previous trauma. 3. No active bone marrow edema or cortical erosion is seen to suggest active osteomyelitis. Patient had an I&D performed in the hospital by Dr. Guadarrama on 09/08/2020. That time patient was noted to have infection to left foot wound with Staphylococcus and Enterobacter which was treated during her stay at the hospital and TCU. Patient has had this ulceration for quite some time. 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 Patient also was noted to have bilateral varus foot deformity. Patient has a noted history of poor compliance of medical recommendations. Patient presents to the office ambulating in TCC unassisted. Patient was noted to have course of antibiotics while in the hospital in August 2020. Since being discharged from the hospital August 2020 patient has missed several of her follow-up appointments including here at the wound care center as well as with her primary care physician. She states issues with transportation. Patient missed follow-up appointment with infectious disease on November 12, 2020. She states that she saw them 11/26/2020. She states he didn't do anything She was admitted to the hospital 11/14/20 for altered mental status. She was found to have had 2 mini strokes per patient. The TCC was removed at that time and patient was to resume wound vac. Culture was obtained in the hospital growing enterobacter cloacae, klebsiella oxytoca, corynebacterium striatum, and enterococcus faecalis. This wasn't treated while in the hospital. Dr Tello was contacted and he started her on linezolid and omnicef 12/02/20. Patient also relates that she is largely non weight bearing by sitting in a chair or on the couch she also uses a wheelchair at home. She states she moved back in with her daughter. She does admit to walking around without the boot to protect the total contact cast. She has broken the TCC multiple times She does admit to external rotation of the lower extremities which could be a contributing factor to ulcer breakdown of the right lateral ankle. She also admits to having offloading boot that she does not wear at night as she states she kicks it off due to her restless leg syndrome. This has since healed- right lateral ankle She relates that she has a in [place] and visits him for months at a time when she has the funds. This has contributed to her noncompliance Patient expresses concern over losing her foot but seems reluctant to follow treatment recommendations. She does not seem willing or capable to follow instructions. Patient also noted to have cracked her cast again this week. Patient has since healed her right ankle wound Progress of Wound: improved left foot, right ankle remains healed Subjective Subjective: Patient seen and examined resting comfortably. Patient denies any new pedal complaints. Patient denies any nausea, fever, chills, chest pain, shortness of breath, cough, streaking, purulence, vomiting. Patient relates muscle spasms to her lower extremities from her neuropathy patient relates having 3 falls this past week while doing stairs. Objective Data Objective Data Vital Signs: Vital Signs Temp Pulse Resp BP 96.8 F L 95 20 H 146/79 H 02/10/21 08:23 02/10/21 08:23 02/10/21 08:23 02/10/21 08:23 Oxygen Delivery Method Room Air Weight: 200 lb 14.792 oz Body Mass Index (BMI) 30.7 Finger Stick Blood Glucose 133 Assessment & Plan Assessment/Plan (1) Non-pressure chronic ulcer of other part of left foot with fat layer exposed: Status: Chronic Code(s): L97.522 - Non-pressure chronic ulcer of other part of left foot with fat layer exposed (2) Charcot's joint of left foot: Status: Chronic Code(s): M14.672 - Charcot's joint, left ankle and foot (3) Type 2 diabetes mellitus with diabetic polyneuropathy: Status: Chronic Code(s): E11.42 - Type 2 diabetes mellitus with diabetic polyneuropathy Qualifiers: Diabetes mellitus group home insulin use: with long term care social worker use Qualified Code(s): E11.42 - Type 2 diabetes mellitus with diabetic polyneuropathy; Z79.4 - 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 the right lateral ankle wound is noted to have healed.? The left plantar foot ulceration is improved Patient was also noted to have cracked her total contact cast again.? Again relayed to the patient the importance of wearing the boot with a total contact cast in order to prevent it from cracking.? I am reluctant to stop total contact cast management at this time?patient has had significant improvement in the wound since cast applications began.? So far there is been no new wound development is due to cast breaking.? Discussed continuing with the total contact cast on the left foot.? The left plantar foot ulceration was approved for epi fix graft application ulceration was debrided after verbal consent was obtained by the patient.? I recommend application of advanced wound healing product to the left plantar foot ulceration.? Prior authorization was confirmed.? The indications, benefits, anticipated application and healing time management were reviewed in detail.? Verbal consent was obtained in the procedure for today.? Site was debrided and graft was applied according to standard protocol and was further secured with a wound veil and Steri-Strips. ? Patient provided verbal consent for a left total contact cast.? This was applied in a well padded neutral position according standard protocol.? The patient tolerated this well.? Patient was also advised to keep this clean, dry, and intact until follow-up next week.? Patient was admitted to hospital 11/14/20 for altered mental status where TCC was removed and culture of wound was obtained from left foot.? Culture grew enterobacter cloacae, klebsiella oxytoca, corynebacterium striatum, and enterocccus faecalis.? Dr Tello was contacted about cultures and he prescribed omnicef and lineozilid 12/02/20. Discussed importance of properly cleaning foot and protecting area when in shower as some of the bacteria she grew are commonly found in GI tract.? Patient has since finished her antibiotics.? There is no signs of infection at this time.? It is noted she is already been undergoing a comprehensive wound healing plan and has delayed and nonhealing. She has had prior bone biopsies, wound culture, and intervention with infectious disease.? She has suspected adequate vascular perfusion for healing per her recent noninvasive vascular studies 09/01/2020 with triphasic waveforms noted.? Patient's hemoglobin A1c was 9.8 in August 2020.? Offloading strongly recommended.? Optimal blood sugar control and increased protein intake also discussed. ? All questions were answered and she was advised to call with any further questions or concerns.? All signs and symptoms of local and systemic infection were discussed with the patient today.? Patient noted to have several falls this week while doing stairs will try to do laundry. Patient since has had pain in her right foot. An x-ray was ordered to further evaluate this. 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 Follow up in 1 week.? This note was generated with [employer] dictation software.? It may contain incorrect words, spelling, and punctuation that were not noted in checking the note before signing. The problems addressed require a low medical decision making level which includes two or more minor problems, a stable chronic illness, or an acute uncomplicated illness or injury. Physical Exam Const alert and no apparent distress General Appearance: cooperative and comfortable HEENT Head and Scalp: atraumatic Lymph Lymphatic: no lymphedema noted Resp normal respiratory effort Effort and Inspection: able to speak in complete sentences Extremity normal capillary refill, no calf tenderness and no pedal edema General Extremity: Negative for clubbing or cyanosis Peripheral Pulses: Yes posterior tibial pulses present bilateral diminished and dorsalis pedis pulses present bilateral diminished Left Lower Extremity: foot and digits Positive for other (No ecchymosis, edema, erythema, open wounds, fluctuance. Pain to central lateral midfoot to palpation. Muscle strength intact all groups. No pain with range of motion of foot and ankle joints) Skin General Skin Exam: dry skin; Negative for ecchymosis, erythema, eschar, pallor or dermatitis Rashes: no rashes Wounds: wounds noted Wound Narrative: ulcers noted to plantar left foot No malodor, erythema, purulence, probing to bone, streaking, fluctuation, crepitus, or other signs of infection. Skin is atrophic and hairless. Granular base. Minor callus buildup periwound. Varus foot type noted Right lateral heel ulceration remains closed. Neuro Gait (Neuro): antalgic Sensory Exam: extremities light-touch: decreased Motor Exam: strength 5/5 throughout Psych Appearance: appropriate Attitude: calm Debridement Note Debridement Note Post-Debridement Measurements and Additional Note: Post-Debridement Measurements/Treatment WC - Nurse 2 - General Ulcer CM Notes Start: 02/10/21 08:23 Freq: Status: Active Protocol: Activity Type Activity Date Activity User E-Sign Co-Sign Detail Recorded Client Recorded Date Recorded By Document 02/10/21 08:28 LISSY [id number] 02/10/21 08:43 LISSY 02/10/21 08:28 Wound Center Nurse 2 #17 R Lat Ankle -Correct Patient No -Correct Side, Site, Position No -Correct Procedure No -Procedure Performed No #16 L Plantar med foot -Time 08:35 -Correct Patient Yes -Correct Side, Site, Position Yes -Correct Procedure Yes -Procedure Performed Yes -Type of Procedure Debridement -Clinical Debridement Subcutaneous -Tissue Removed Subcutaneous -Post Debridement (cm) - Length 2.6 -Post Debridement (cm) - Width 1.5 -Post Debridement (cm) - Depth 0.4 -Total Square (Post) (cm) 3.90 -Area of Debridement (cm) - Length 2.6 -Area of Debridement (cm) - Width 1.5 -Total Square (Area) (cm) 3.90 -Tunneling No -Undermining/Tunneling No -Circular Undermining No -Wound/Ulcer Outcome Not Healed -Ulcer Cleansing Rinsed/ Irrigated with Saline -Foul Odor after Cleansing No -Bioengineered Tissue Yes -Type of Bioengineered Tissue Epifix -Expiration Date 10/10/25 -Product Lot Number [id number] -Percent Used 100 -Lot number of Saline Used [id number] -Bleeding Controlled with Pressure -Offloading Yes -Type of Offloading Total Contact Cast (TCC) - Left ($) -Treatment Response Procedure Tolerated Well -Debridement - Subq, 1st 20sq cm No -Apply Skin Sub - each addt'l 25 sq cm 1 - Legs -Epifix (per sq cm) 4 Pain Scale: 0-10 Numeric Is Patient Pain Free? Yes - Nurse 3 - General Ulcer D/C NN Start: 02/10/21 08:23 Freq: Status: Active Protocol: Activity Type Activity Date Activity User E-Sign Co-Sign Detail Recorded Client Recorded Date Recorded By Document 02/10/21 08:45 LISSY [id number] 02/10/21 08:46 LISSY 02/10/21 08:45 Wound Care Nurse 3 #16 L Plantar med foot -Ulcer Cleansing Rinsed/ Irrigated with Saline -Foul Odor after Cleansing No Pain Scale: 0-10 Numeric Is Patient Pain Free? Yes - Visit Discharge Discharge Condition Stable Ambulatory Status Ambulatory Transportation Private Auto Medication Reconcilliation completed & Yes provided to patient/care provider Clinical Summary of Care Provided Yes Notes: TCC applied today. Wound debrided: Plantar foot Laterality: Left Wound Grade/Stage: Freedman 1 Type of Debridement: Excisional debridement Anesthesia Used: 4% Lidocaine Solution Depth: in the subcutaneous layer Percentage of wound debrided: 100 Instrument Used: 3mm curette Tissue Removed: includes fibrous, devitalized, biofilm, callus and slough tissue Severity: Fat Layer Exposed Amount of bleeding with debridement: Mild Bleeding Controlled with: Pressure Patient tolerated procedure: Patient tolerated procedure well
[2021-02-17 09:56] LABS: Bedside Glucose > 500 mg/dL (70-110)
[2021-02-17 10:03] VITALS: BP 134/78; PULSE 92; RESP 16; TEMP 36.4; BMI 30.7
--- NOTE | 2021-02-17 10:04 | WC ---
Addendum entered by Yun Reynolds 02/17/21 10:22: pt rechk blood sugar with own glucometer. bs 557. will update dr ashley and case investigator. pt denies sx other than feeling tired. states she was up last night until 4:30 am. Original Note: glucometer reading 527 per shell r[place] rn. pt c/o feeling tired. pt self administered home insulin. will rechk prior to visit end.
--- NOTE | 2021-02-17 11:16 | PCM.WC.PN ---
History of Present Illness Date of Service: 02/17/21 Chief Complaint: Right ankle diabetic ulcer- healed left foot ulcer History of Wound: Patient is a 55-year-old female who presents to the clinic for follow-up of hospital stay for a left foot chronic ulceration. Patient had MRI on 09/01/2020 showing 1. Large 5.81 x 1.70 cm open skin defect/wound on the lateral plantar aspect of the foot contains fluid and debris and can be a infected. The investing fascia and the plantar aspect of the foot beneath the fourth metatarsal bone encloses the complex fluid collection, and there is no demonstrated intramuscular extension or contact with the overlying bony structures. 2. Mild cortical irregularity is present at the base and plantar and lateral aspect of the fifth metatarsal bone and cuboid which could be related to prior infection or sequela from previous trauma. 3. No active bone marrow edema or cortical erosion is seen to suggest active osteomyelitis. Patient had an I&D performed in the hospital by Dr. Guadarrama on 09/08/2020. That time patient was noted to have infection to left foot wound with Staphylococcus and Enterobacter which was treated during her stay at the hospital and TCU. Patient has had this ulceration for quite some time. 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 Patient also was noted to have bilateral varus foot deformity. Patient has a noted history of poor compliance of medical recommendations. Patient presents to the office ambulating in TCC unassisted. Patient was noted to have course of antibiotics while in the hospital in August 2020. Since being discharged from the hospital August 2020 patient has missed several of her follow-up appointments including here at the wound care center as well as with her primary care physician. She states issues with transportation. Patient missed follow-up appointment with infectious disease on November 12, 2020. She states that she saw them 11/26/2020. She states he didn't do anything She was admitted to the hospital 11/14/20 for altered mental status. She was found to have had 2 mini strokes per patient. The TCC was removed at that time and patient was to resume wound vac. Culture was obtained in the hospital growing enterobacter cloacae, klebsiella oxytoca, corynebacterium striatum, and enterococcus faecalis. This wasn't treated while in the hospital. Dr Tello was contacted and he started her on linezolid and omnicef 12/02/20. She has since finished this. Patient also relates that she is largely non weight bearing by sitting in a chair or on the couch she also uses a wheelchair at home. She states she moved back in with her daughter. She does admit to walking around without the boot to protect the total contact cast. She has broken the TCC multiple times She does admit to external rotation of the lower extremities which could be a contributing factor to ulcer breakdown of the right lateral ankle. She also admits to having offloading boot that she does not wear at night as she states she kicks it off due to her restless leg syndrome. This has since healed- right lateral ankle She relates that she has a in [place] and visits him for months at a time when she has the funds. This has contributed to her noncompliance Patient expresses concern over losing her foot but seems reluctant to follow treatment recommendations. She does not seem willing or capable to follow instructions. Patient also noted to have cracked her cast again this week she tried a duct tape it back together. It is noted that the dressing had shifted on her foot when the cast was removed as well. Patient has since healed her right ankle wound Progress of Wound: Stable left foot, right ankle remains healed Subjective Subjective: Patient seen and examined resting comfortably. Patient denies any new pedal complaints. Patient denies any nausea, fever, chills, chest pain, shortness of breath, cough, streaking, purulence, vomiting. Patient very lethargic upon exam. She states that she did not go to sleep until 430 this morning. Patient is also 40 minutes late begin citing she has not gotten out of sleep. Upon rooming patient was noted to have a blood sugar of 540. Patient states that it was in the upper 300s when she went to bed last night. Patient states that she usually doesn't go to the hospital or do anything when her blood sugars are this high Objective Data Objective Data Vital Signs: Vital Signs Temp Pulse Resp BP 97.5 F L 92 16 134/78 H 02/17/21 10:03 02/17/21 10:03 02/17/21 10:03 02/17/21 10:03 Oxygen Delivery Method Room Air Weight: 91.138 kg Body Mass Index (BMI) 30.7 Finger Stick Blood Glucose 133 Lab / Micro Data Labs: Laboratory Results - last 24 hr 02/17/21 09:51 POC Glucose > 500 H* Assessment & Plan Assessment/Plan (1) Non-pressure chronic ulcer of other part of left foot with fat layer exposed: (2) Charcot's joint of left foot: (3) Type 2 diabetes mellitus with diabetic polyneuropathy: QUALIFIERS: 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 the right lateral ankle wound is noted to have healed.? The left plantar foot ulceration is stable. Patient noted to be extremely lethargic more so than normal on examination today. Patient was noted to have a blood sugar of 540 at which point she took some insulin insulin and was retested and was noted to have her blood sugar increased to 551. Prior to discharge from office blood sugar was taken again it was noted to be 380. Discussed with the patient the importance of proper blood sugar control. Discussed that she is not acting like herself this could be partially due to her high blood sugar. Patient was strongly encouraged to go the emergency room for further evaluation. Patient was also noted to have cracked her total contact cast again.? She tried to fix it with duct tape. There is also noted that dressing had shifted on her foot and was no longer over the wound. Again relayed to the patient the importance of wearing the boot with a total contact cast in order to prevent it from cracking.? I am reluctant to stop total contact cast management at this time?patient has had significant improvement in the wound since cast applications began.? So far there is been no new wound development is due to cast breaking.? Discussed continuing with the total contact cast on the left foot.? The left plantar foot ulceration was approved for epi fix graft application ulceration was debrided after verbal consent was obtained by the patient.? I recommend application of advanced wound healing product to the left plantar foot ulceration.? Prior authorization was confirmed.? The indications, benefits, anticipated application and healing time management were reviewed in detail.? Verbal consent was obtained in the procedure for today.? Site was debrided and graft was applied according to standard protocol and was further secured with a wound veil and Steri-Strips. ? Patient provided verbal consent for a left total contact cast.? This was applied in a well padded neutral position according standard protocol.? The patient tolerated this well.? Patient was also advised to keep this clean, dry, and intact until follow-up next week.? Patient was admitted to hospital 11/14/20 for altered mental status where TCC was removed and culture of wound was obtained from left foot.? Culture grew enterobacter cloacae, klebsiella oxytoca, corynebacterium striatum, and enterocccus faecalis.? Dr Tello was contacted about cultures and he prescribed omnicef and lineozilid 12/02/20. Discussed importance of properly cleaning foot and protecting area when in shower as some of the bacteria she grew are commonly found in GI tract.? Patient has since finished her antibiotics.? There is no signs of infection at this time.? It is noted she is already been undergoing a comprehensive wound healing plan and has delayed and nonhealing. She has had prior bone biopsies, wound culture, and intervention with infectious disease.? She has suspected adequate vascular perfusion for healing per her recent noninvasive vascular studies 09/01/2020 with triphasic waveforms noted.? Patient's hemoglobin A1c was 9.8 in August 2020.? Offloading strongly recommended.? Optimal blood sugar control and increased protein intake also discussed. ? All questions were answered and she was advised to call with any further questions or concerns.? All signs and symptoms of local and systemic infection were discussed with the patient today.? Patient noted to not have gotten an x-ray that was prescribed last week for her right foot pain after her fall. Discussed with the patient did not ask her if she wants this further looked into. Patient relates that her pain is largely resolved. Follow up in 1 week.? This note was generated with [employer] dictation software.? It may contain incorrect words, spelling, and punctuation that were not noted in checking the note before signing. Physical Exam Const alert and no apparent distress General Appearance: cooperative and comfortable Lymph Lymphatic: no lymphedema noted Resp normal respiratory effort Effort and Inspection: able to speak in complete sentences Extremity normal capillary refill, no calf tenderness and no pedal edema General Extremity: Negative for clubbing or cyanosis Left Lower Extremity: foot and digits Positive for other (No ecchymosis, edema, erythema, open wounds, fluctuance. Pain to central lateral midfoot to palpation. Muscle strength intact all groups. No pain with range of motion of foot and ankle joints) Skin General Skin Exam: dry skin; Negative for ecchymosis, erythema, eschar, pallor or dermatitis Rashes: no rashes Wounds: wounds noted Wound Narrative: ulcers noted to plantar left foot No malodor, erythema, purulence, probing to bone, streaking, fluctuation, crepitus, or other signs of infection. Skin is atrophic and hairless. Granular base. Minor callus buildup periwound. Varus foot type noted Right lateral heel ulceration remains closed. Neuro Gait (Neuro): antalgic Sensory Exam: extremities light-touch: decreased Motor Exam: strength 5/5 throughout Psych Psych Narrative: lethargic Appearance: appropriate and disheveled Attitude: calm Debridement Note Debridement Note Post-Debridement Measurements and Additional Note: Post-Debridement Measurements/Treatment - Nurse 1 - General Ulcer Assessment Start: 02/10/21 08:23 Freq: Status: Active Protocol: SHANICE Activity Type Activity Date Activity User E-Sign Co-Sign Detail Recorded Client Recorded Date Recorded By Document 02/10/21 08:23 MW [id number] 02/10/21 08:26 MW Document 02/17/21 10:03 [employer] [id number] 02/17/21 10:04 [employer] 02/10/21 02/17/21 08:23 10:03 - Today's Visit Information Type of service Follow-up Visit Follow-up Visit (Physician/DIE 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 (Physician/DIE 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 ) ) Arrival Mode Ambulatory Wheelchair Transfer Assistance None None Accompanied by SELF Patient Identification Verified (Name & Yes Yes ) Patient Requires Transmission-Based No No Precautions Safety Precautions Fall Prevention Finger Stick Blood Sugar(mg/dl) (if 230 527 indicated): Blood Sugar Stated by Done During Patient this Visit Height and Weight Body Mass Index (BMI) 30.7 30.7 BMI Classification Obese Obese Vital Signs Temperature (97.8 F-99.1 F) 96.8 F L 97.5 F L Temperature Source Temporal Temporal Pulse Rate (60-100) 95 92 Pulse Location Monitor Monitor Respiratory Rate (12-18) 20 H 16 Respiratory rate source Observation Observation Oxygen Delivery Method Room Air Room Air Blood Pressure (90/60-120/80) 146/79 H 134/78 H Blood Pressure Mean (mm Hg) 101 96 Source Monitor Monitor Position Sitting Sitting Blood Pressure Location Right Arm Right Arm History Since Last Visit- (Skip if this is Patient's initial visit) Have you changed medications since your No No last visit? Any new allergies or adverse reactions No No Had a fall/change in ADL's that may No No increase risk of falls Signs or symptoms of abuse and/or No No neglect since last visit Have you been in the hospital since your No No last visit? Has dressing in place as prescribed Yes No Has compression in place as prescribed Yes N/A Has offloadiing in place as prescribed N/A No Experienced any changes in pain level or No No management Left Footwear Total Contact Total Contact Cast Cast Right Footwear Regular Shoe Regular Shoe Pain Scale: 0-10 Numeric Is Patient Pain Free? Yes Yes Teaching: Wound Center Dressing Your Wound -Person Taught Patient -Teaching Method Discussion -Response to teaching Verbalize understanding WC - Nurse 1 - General Ulcer Measurement Start: 02/10/21 08:23 Freq: Status: Active Protocol: Activity Type Activity Date Activity User E-Sign Co-Sign Detail Recorded Client Recorded Date Recorded By Document 02/10/21 08:23 MW [id number] 02/10/21 08:26 MW Document 02/17/21 10:03 [facility] [id number] 02/17/21 10:04 [facility] 02/10/21 02/17/21 08:23 10:03 Wound Center Nurse 1 #17 R Lat Ankle -Undermining/Tunneling Yes -Undermining/Tunneling Starts (O'clock 7 ) -Undermining/Tunneling Ends (O'clock) 12 -Maximum Distance (cm) 0.2 #16 L Plantar med foot -Combined with other wound No No -Current Size (cm) - Length 2.8 2.5 -Current Size (cm) - Width 1.7 1.4 -Current Size (cm) - Depth 0.4 0.5 -Total Square Cm 4.76 3.50 -Photo Taken No No -Epithelialization None Present None Present -Tunneling No No -Undermining/Tunneling No Yes -Undermining/Tunneling Starts (O'clock 1 ) -Undermining/Tunneling Ends (O'clock) 5 -Maximum Distance (cm) 0.6 -Circular Undermining No No -Change in Wound Grade/Stage No -Exudate Amt Large Large -Exudate Type Serosanguineous Serous -Wound Margin Thickened & Thickened Rolled Under -Granulation Amt Large (67-100%) Large (67-100%) -Granulation Quality [place] Red -Slough/Fibrin Yes No -Necrosis Amt Small (1-33%) None Present (0 %) -Necrotic Tissue Type Adherent Slough -Structure Exposed N/A -Texture (Natacha-wound Skin Appearance) Assessed, Assessed, Scarring Fluctuance -Moisture (Natacha-wound Skin Appearance) Assessed, Assessed, Maceration Maceration -Color (Natacha-wound Skin Appearance) No Abnormality, Assessed,Palor Assessed -Temperature (Natacha-wound Skin No Abnormality No Abnormality Appearance) (Pt Warm) (Pt Warm) -Tenderness on Palpation (Natacha-wound Yes No Skin Appearance) -Ulcer Cleansing Rinsed/ soapy water Irrigated with Saline -Foul Odor after Cleansing No No -Anesthetic Used 4% Lidocaine 5% Lidocaine Solution Gel Lower Limb Edema Present No WC - Nurse 2 - General Ulcer CM Notes Start: 02/10/21 08:23 Freq: Status: Active Protocol: Activity Type Activity Date Activity User E-Sign Co-Sign Detail Recorded Client Recorded Date Recorded By Document 02/10/21 08:28 [id number] 02/10/21 08:43 JF Edit Result 02/10/21 08:28 JF (1) [id number] 02/11/21 16:20 PL Document 02/17/21 10:57 [id number] 02/17/21 10:59 (1) #16 L Plantar med foot - Apply Skin Sub - each addt'l 25 sq cm 1 => - Legs - Apply Skin Sub - 1st 25 sq cm - Feet => 1 02/10/21 02/17/21 08:28 10:57 Wound Center Nurse 2 #17 R Lat Ankle -Correct Patient No -Correct Side, Site, Position No -Correct Procedure No -Procedure Performed No #16 L Plantar med foot -Time 08:35 10:57 -Correct Patient Yes Yes -Correct Side, Site, Position Yes Yes -Correct Procedure Yes Yes -Procedure Performed Yes Yes -Type of Procedure Debridement Debridement -Clinical Debridement Subcutaneous Subcutaneous -Tissue Removed Subcutaneous Subcutaneous -Post Debridement (cm) - Length 2.6 2.5 -Post Debridement (cm) - Width 1.5 1.6 -Post Debridement (cm) - Depth 0.4 8 -Total Square (Post) (cm) 3.90 4.00 -Area of Debridement (cm) - Length 2.6 2.5 -Area of Debridement (cm) - Width 1.5 0.6 -Total Square (Area) (cm) 3.90 1.50 -Tunneling No No -Undermining/Tunneling No No -Circular Undermining No No -Wound/Ulcer Outcome Not Healed Not Healed -Ulcer Cleansing Rinsed/ Rinsed/ Irrigated with Irrigated with Saline Saline -Foul Odor after Cleansing No No -Bioengineered Tissue Yes Yes -Type of Bioengineered Tissue Epifix Epifix -Expiration Date 10/10/25 10/10/25 -Product Lot Number [id number] -Percent Used 100 100 -Lot number of Saline Used [id number] -Bleeding Controlled with Pressure Pressure -Offloading Yes Yes -Type of Offloading Total Contact Total Contact Cast (TCC) - Cast (TCC) - Left ($) Left ($) -Treatment Response Procedure Procedure Tolerated Well Tolerated Well -Debridement - Subq, 1st 20sq cm No No -Apply Skin Sub - 1st 25 sq cm - Feet 1 1 -Epifix (per sq cm) 4 4 Pain Scale: 0-10 Numeric Is Patient Pain Free? Yes Yes - Nurse 3 - General Ulcer D/C NN Start: 02/10/21 08:23 Freq: Status: Active Protocol: Activity Type Activity Date Activity User E-Sign Co-Sign Detail Recorded Client Recorded Date Recorded By Document 02/10/21 08:45 LISSY [id number] 02/10/21 08:46 LISSY 02/10/21 08:45 Wound Care Nurse 3 #16 L Plantar med foot -Ulcer Cleansing Rinsed/ Irrigated with Saline -Foul Odor after Cleansing No Pain Scale: 0-10 Numeric Is Patient Pain Free? Yes - Visit Discharge Discharge Condition Stable Ambulatory Status Ambulatory Transportation Private Auto Medication Reconcilliation completed & Yes provided to patient/care provider Clinical Summary of Care Provided Yes Notes: TCC applied today. Wound debrided: foot Laterality: Left Wound Grade/Stage: warren 1 Type of Debridement: Excisional debridement Anesthesia Used: 4% Lidocaine Solution Depth: in the subcutaneous layer Percentage of wound debrided: 100 Instrument Used: 3mm curette Tissue Removed: Includes fibrous, devitalized, biofilm, callus and slough tissue Severity: Fat Layer Exposed Amount of bleeding with debridement: Mild Bleeding Controlled with: Pressure Patient tolerated procedure: Patient tolerated procedure well
[2021-02-24 08:20] VITALS: BP 142/65; PULSE 92; RESP 16; TEMP 35.9; BMI 30.7
--- NOTE | 2021-02-24 09:00 | PN.PCM_ITS ---
History of Present Illness Date of Service: 02/24/21 Chief Complaint: Right ankle diabetic ulcer- healed left foot ulcer History of Wound: Patient is a 55-year-old female who presents to the clinic for follow-up of hospital stay for a left foot chronic ulceration. Patient had MRI on 09/01/2020 showing 1. Large 5.81 x 1.70 cm open skin defect/wound on the lateral plantar aspect of the foot contains fluid and debris and can be a infected. The investing fascia and the plantar aspect of the foot beneath the fourth metatarsal bone encloses the complex fluid collection, and there is no demonstrated intramuscular extension or contact with the overlying bony structures. 2. Mild cortical irregularity is present at the base and plantar and lateral aspect of the fifth metatarsal bone and cuboid which could be related to prior infection or sequela from previous trauma. 3. No active bone marrow edema or cortical erosion is seen to suggest active osteomyelitis. Patient had an I&D performed in the hospital by Dr. Guadarrama on 09/08/2020. That time patient was noted to have infection to left foot wound with Staphylococcus and Enterobacter which was treated during her stay at the hospital and TCU. Patient has had this ulceration for quite some time. 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 Patient also was noted to have bilateral varus foot deformity. Patient has a noted history of poor compliance of medical recommendations. Patient presents to the office ambulating in TCC unassisted. Patient was noted to have course of antibiotics while in the hospital in August 2020. Since being discharged from the hospital August 2020 patient has missed several of her follow-up appointments including here at the wound care center as well as with her primary care physician. She states issues with transportation. Patient missed follow-up appointment with infectious disease on November 12, 2020. She states that she saw them 11/26/2020. She states he didn't do anything She was admitted to the hospital 11/14/20 for altered mental status. She was found to have had 2 mini strokes per patient. The TCC was removed at that time and patient was to resume wound vac. Culture was obtained in the hospital growing enterobacter cloacae, klebsiella oxytoca, corynebacterium striatum, and enterococcus faecalis. This wasn't treated while in the hospital. Dr Tello was contacted and he started her on linezolid and omnicef 12/02/20. She has since finished this. Patient also relates that she is largely non weight bearing by sitting in a chair or on the couch she also uses a wheelchair at home. She states she moved back in with her daughter. She does admit to walking around without the boot to protect the total contact cast. She has broken the TCC multiple times She does admit to external rotation of the lower extremities which could be a contributing factor to ulcer breakdown of the right lateral ankle. She also admits to having offloading boot that she does not wear at night as she states she kicks it off due to her restless leg syndrome. This has since healed- right lateral ankle She relates that she has a in [place] and visits him for months at a time when she has the funds. This has contributed to her noncompliance Patient expresses concern over losing her foot but seems reluctant to follow treatment recommendations. She does not seem willing or capable to follow instructions. Patient also noted to have cracked her cast again this week she tried a duct tape it back together. It is noted that the dressing had shifted on her foot when the cast was removed as well. Patient has since healed her right ankle wound Progress of Wound: Less depth noted to wound but increased periwound callus and maceration noted left foot, right ankle remains healed Subjective Subjective Patient seen and examined resting comfortably. Patient denies any new pedal complaints. Patient denies any nausea, fever, chills, chest pain, shortness of breath, cough, streaking, purulence, vomiting. 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 the right lateral ankle wound is noted to have healed.? The left plantar foot ulceration is stable with less depth but with more surrounding callus and maceration. Patient relates that she did not go to the ED following appointment last time for hyperglycemia. Patient relates she is able to control her own with her own insulin. Patient relates that her blood sugar this morning was 246 and she has not had any cases in the last week of blood glucose over 500 again. Patient was also noted to have cracked her total contact cast again.? She relates that is still crack even though she slept with the boot on. There is also noted that dressing had shifted on her foot and was no longer over the wound. Again relayed to the patient the importance of wearing the boot with a total contact cast in order to prevent it from cracking.? I am reluctant to stop total contact cast management at this time?patient has had significant improvement in the wound since cast applications began.? So far there is been no new wound development is due to cast breaking.? Discussed continuing with the total contact cast on the left foot.? The left plantar foot ulceration was approved for epi fix graft application ulceration was debrided after verbal consent was obtained by the patient.? I recommend application of advanced wound healing product to the left plantar foot ulceration.? Prior authorization was confirmed.? The indications, benefits, anticipated application and healing time management were reviewed in detail.? Verbal consent was obtained in the procedure for today.? Site was debrided and graft was applied according to standard protocol and was further secured with a wound veil and Steri-Strips. ? Patient provided verbal consent for a left total contact cast.? This was applied in a well padded neutral position according standard protocol.? The patient tolerated this well.? Patient was also advised to keep this clean, dry, and intact until follow-up next week.? Patient was admitted to hospital 11/14/20 for altered mental status where TCC was removed and culture of wound was obtained from left foot.? Culture grew enterobacter cloacae, klebsiella oxytoca, corynebacterium striatum, and enterocccus faecalis.? Dr Tello was contacted about cultures and he prescribed omnicef and lineozilid 12/02/20. Discussed importance of properly cleaning foot and protecting area when in shower as some of the bacteria she grew are commonly found in GI tract.? Patient has since finished her antibiotics.? There is no signs of infection at this time.? It is noted she is already been undergoing a comprehensive wound healing plan and has delayed and nonhealing. She has had prior bone biopsies, wound culture, and intervention with infectious disease.? She has suspected adequate vascular perfusion for healing per her recent noninvasive vascular studies 09/01/2020 with triphasic waveforms noted.? Patient's hemoglobin A1c was 9.8 in August 2020.? Offloading strongly recommended.? Optimal blood sugar control and increased protein intake also discussed. ? All questions were answered and she was advised to call with any further questions or concerns.? All signs and symptoms of local and systemic infection were discussed with the patient today.? Follow up in 1 week.? This note was generated with [employer] dictation software.? It may contain incorrect words, spelling, and punctuation that were not noted in checking the note before signing. Physical Exam Const alert and no apparent distress General Appearance: cooperative and comfortable Lymph Lymphatic: no lymphedema noted Resp normal respiratory effort Effort and Inspection: able to speak in complete sentences Extremity normal capillary refill, no calf tenderness and no pedal edema General Extremity: Negative for clubbing or cyanosis Peripheral Pulses: Yes posterior tibial pulses present left 1+ and dorsalis pedis pulses present left 2+ Left Lower Extremity: foot and digits Skin General Skin Exam: dry skin; Negative for ecchymosis, erythema, eschar, pallor or dermatitis Rashes: no rashes Wounds: wounds noted Wound Narrative: ulcers noted to plantar left foot No malodor, erythema, purulence, probing to bone, streaking, fluctuation, crepitus, or other signs of infection. Skin is atrophic and hairless. Granular base. Increased callus buildup periwound with some maceration. Varus foot type noted Right lateral heel ulceration remains closed. Neuro Gait (Neuro): antalgic Sensory Exam: extremities light-touch: decreased Motor Exam: strength 5/5 throughout Psych Appearance: appropriate Attitude: calm Debridement Note Debridement Note Post-Debridement Measurements and Additional Note: Post-Debridement Measurements/Treatment WC - Nurse 1 - General Ulcer Assessment Start: 02/10/21 08:23 Freq: Status: Active Protocol: SHANICE Activity Type Activity Date Activity User E-Sign Co-Sign Detail Recorded Client Recorded Date Recorded By Document 02/10/21 08:23 MW [id number] 02/10/21 08:26 MW Document 02/17/21 10:03 BMF [id number] 02/17/21 10:04 BMF Document 02/24/21 08:20 BM [id number] 02/24/21 08:28 BMF 02/10/21 02/17/21 02/24/21 08:23 10:03 08:20 WC - Today's Visit Information Type of service Follow-up Visit Follow-up Visit Follow-up Visit (Physician/MANUFACTURER'S SERVICE REPRESENTATIVE (Physician/MANUFACTURER'S SERVICE REPRESENTATIVE (Physician/MANUFACTURER'S SERVICE REPRESENTATIVE ) ) ) Arrival Mode Ambulatory Wheelchair Ambulatory Transfer Assistance None None None Accompanied by SELF Patient Identification Verified (Name & Yes Yes Yes ) Patient Requires Transmission-Based No No No Precautions Safety Precautions Fall Prevention Finger Stick Blood Sugar(mg/dl) (if [phone] indicated): Blood Sugar Stated by Done During Stated by Patient this Visit Patient Height and Weight Body Mass Index (BMI) 30.7 30.7 30.7 BMI Classification Obese Obese Obese Vital Signs Temperature (97.8 F-99.1 F) 96.8 F L 97.5 F L 96.6 F L Temperature Source Temporal Temporal Temporal Pulse Rate (60-100) 95 92 92 Pulse Location Monitor Monitor Monitor Respiratory Rate (12-18) 20 H 16 16 Respiratory rate source Observation Observation Observation Oxygen Delivery Method Room Air Room Air Room Air Blood Pressure (90/60-120/80) 146/79 H 134/78 H 142/65 H Blood Pressure Mean (mm Hg) 101 96 90 Source Monitor Monitor Monitor Position Sitting Sitting Sitting Blood Pressure Location Right Arm Right Arm Right Arm History Since Last Visit- (Skip if this is Patient's initial visit) Have you changed medications since your No No No last visit? Any new allergies or adverse reactions No No No Had a fall/change in ADL's that may No No No increase risk of falls Signs or symptoms of abuse and/or No No No neglect since last visit Have you been in the hospital since your No No No last visit? Has dressing in place as prescribed Yes No Yes Has compression in place as prescribed Yes N/A N/A Has offloadiing in place as prescribed N/A No Yes Experienced any changes in pain level or No No No management Left Footwear Total Contact Total Contact Total Contact Cast Cast Cast Right Footwear Regular Shoe Regular Shoe Regular Shoe Pain Scale: 0-10 Numeric Is Patient Pain Free? Yes Yes Yes Teaching: Wound Center Dressing Your Wound -Person Taught Patient -Teaching Method Discussion -Response to teaching Verbalize understanding WC - Nurse 1 - General Ulcer Measurement Start: 02/10/21 08:23 Freq: Status: Active Protocol: Activity Type Activity Date Activity User E-Sign Co-Sign Detail Recorded Client Recorded Date Recorded By Document 02/10/21 08:23 MW [id number] 02/10/21 08:26 MW Document 02/17/21 10:03 BMF [id number] 02/17/21 10:04 BMF Document 02/24/21 08:20 BM [id number] 02/24/21 08:28 BMF 02/10/21 02/17/21 02/24/21 08:23 10:03 08:20 Wound Center Nurse 1 #17 R Lat Ankle -Undermining/Tunneling Yes -Undermining/Tunneling Starts (O'clock 7 ) -Undermining/Tunneling Ends (O'clock) 12 -Maximum Distance (cm) 0.2 #16 L Plantar med foot -Combined with other wound No No No -Current Size (cm) - Length 2.8 2.5 2.6 -Current Size (cm) - Width 1.7 1.4 1.8 -Current Size (cm) - Depth 0.4 0.5 0.6 -Total Square Cm 4.76 3.50 4.68 -Photo Taken No No No -Epithelialization None Present None Present None Present -Tunneling No No No -Undermining/Tunneling No Yes Yes -Undermining/Tunneling Starts (O'clock 1 11 ) -Undermining/Tunneling Ends (O'clock) 5 5 -Maximum Distance (cm) 0.6 0.6 -Circular Undermining No No No -Change in Wound Grade/Stage No -Exudate Amt Large Large Large -Exudate Type Serosanguineous Serous Serosanguineous -Wound Margin Thickened & Thickened Thickened & Rolled Under Rolled Under -Granulation Amt Large (67-100%) Large (67-100%) Large (67-100%) -Granulation Quality Cactus Red Red -Slough/Fibrin Yes No No -Necrosis Amt Small (1-33%) None Present (0 None Present (0 %) %) -Necrotic Tissue Type Adherent Slough -Structure Exposed N/A -Texture (Natacha-wound Skin Appearance) Assessed, Assessed, Assessed, Scarring Fluctuance Scarring -Moisture (Natacha-wound Skin Appearance) Assessed, Assessed, Assessed, Maceration Maceration Maceration -Color (Natacha-wound Skin Appearance) No Abnormality, Assessed,Palor Assessed,Palor Assessed -Temperature (Natacha-wound Skin No Abnormality No Abnormality No Abnormality Appearance) (Pt Warm) (Pt Warm) (Pt Warm) -Tenderness on Palpation (Natacha-wound Yes No No Skin Appearance) -Ulcer Cleansing Rinsed/ soapy water soapy water Irrigated with Saline -Foul Odor after Cleansing No No No -Anesthetic Used 4% Lidocaine 5% Lidocaine 5% Lidocaine Solution Gel Gel Lower Limb Edema Present No WC - Nurse 2 - General Ulcer CM Notes Start: 02/10/21 08:23 Freq: Status: Active Protocol: Activity Type Activity Date Activity User E-Sign Co-Sign Detail Recorded Client Recorded Date Recorded By Document 02/10/21 08:28 JF [id number] 02/10/21 08:43 JF Edit Result 02/10/21 08:28 JF (1) [id number] 02/11/21 16:20 PL Document 02/17/21 10:57 JF [id number] 02/17/21 10:59 JF Document 02/24/21 08:36 [id number] 02/24/21 08:42 JF (1) #16 L Plantar med foot - Apply Skin Sub - each addt'l 25 sq cm 1 => - Legs - Apply Skin Sub - 1st 25 sq cm - Feet => 1 02/10/21 02/17/21 02/24/21 08:28 10:57 08:36 Wound Center Nurse 2 #17 R Lat Ankle -Correct Patient No -Correct Side, Site, Position No -Correct Procedure No -Procedure Performed No #16 L Plantar med foot -Time 08:35 10:57 08:36 -Correct Patient Yes Yes Yes -Correct Side, Site, Position Yes Yes Yes -Correct Procedure Yes Yes Yes -Procedure Performed Yes Yes Yes -Type of Procedure Debridement Debridement Debridement -Clinical Debridement Subcutaneous Subcutaneous Subcutaneous -Tissue Removed Subcutaneous Subcutaneous Subcutaneous -Post Debridement (cm) - Length 2.6 2.5 2.6 -Post Debridement (cm) - Width 1.5 1.6 1.6 -Post Debridement (cm) - Depth 0.4 8 0.4 -Total Square (Post) (cm) 3.90 4.00 4.16 -Area of Debridement (cm) - Length 2.6 2.5 2.6 -Area of Debridement (cm) - Width 1.5 0.6 1.6 -Total Square (Area) (cm) 3.90 1.50 4.16 -Tunneling No No No -Undermining/Tunneling No No No -Circular Undermining No No No -Wound/Ulcer Outcome Not Healed Not Healed Not Healed -Ulcer Cleansing Rinsed/ Rinsed/ Rinsed/ Irrigated with Irrigated with Irrigated with Saline Saline Saline -Foul Odor after Cleansing No No No -Bioengineered Tissue Yes Yes Yes -Type of Bioengineered Tissue Epifix Epifix Epifix -Expiration Date 10/10/25 10/10/25 11/10/25 -Product Lot Number [id number] -Percent Used 100 100 100 -Lot number of Saline Used [id number] -Bleeding Controlled with Pressure Pressure Pressure -Offloading Yes Yes Yes -Type of Offloading Total Contact Total Contact Total Contact Cast (TCC) - Cast (TCC) - Cast (TCC) - Left ($) Left ($) Left ($) -Treatment Response Procedure Procedure Procedure Tolerated Well Tolerated Well Tolerated Well -Debridement - Subq, 1st 20sq cm No No No -Apply Skin Sub - 1st 25 sq cm - Feet 1 1 1 -Epifix (per sq cm) 4 4 4 Pain Scale: 0-10 Numeric Is Patient Pain Free? Yes Yes Yes - Nurse 3 - General Ulcer D/C NN Start: 02/10/21 08:23 Freq: Status: Active Protocol: Activity Type Activity Date Activity User E-Sign Co-Sign Detail Recorded Client Recorded Date Recorded By Document 02/10/21 08:45 LISSY [id number] 02/10/21 08:46 Document 02/17/21 11:21 [facility] [id number] 02/17/21 11:24 BM Document 02/24/21 08:45 [facility] Desktop 02/24/21 08:45 [facility] 02/10/21 02/17/21 02/24/21 08:45 11:21 08:45 Wound Care Nurse 3 #16 L Plantar med foot -Ulcer Cleansing Rinsed/ Irrigated with Saline -Foul Odor after Cleansing No -Other Dressing epifix epifix -Primary Dressing Covered/Secured with Secured with Tape,Other -Other Covering tcc undercast tcc undercast size 3 per dl taste tester size 3 Treatment Response Procedure Procedure Tolerated Well Tolerated Well Pain Scale: 0-10 Numeric Is Patient Pain Free? Yes Yes Yes WC - Visit Discharge Discharge Condition Stable Stable Stable Ambulatory Status Ambulatory Wheelchair Ambulatory Transportation Private Auto transport Medication Reconcilliation completed & Yes provided to patient/care provider Clinical Summary of Care Provided Yes Notes: TCC applied rechk bs per pt today. own glucometer , 356 Wound debrided: Plantar foot Laterality: Left Wound Grade/Stage: Freedman 1 Type of Debridement: Excisional debridement Anesthesia Used: 4% Lidocaine Solution Depth: in the subcutaneous layer Percentage of wound debrided: 100 Instrument Used: 3mm curette Tissue Removed: includes fibrous, devitalized, biofilm, callus and slough tissue Severity: Fat Layer Exposed Amount of bleeding with debridement: Mild Bleeding Controlled with: Pressure Patient tolerated procedure: Patient tolerated procedure well
== END 2021-03-09 23:59 ==
LOC: WC 09:00
PROVIDERS: PCP Family Medicine; Referring Provider Podiatrist; Visit Provider Podiatrist Foot & Ankle Surgery
DX: E11.621 Type 2 diabetes mellitus with foot ulcer (principal); L97.422 Non-pressure chronic ulcer of left heel and midfoot with fat layer exposed; E11.610 Type 2 diabetes mellitus with diabetic neuropathic arthropathy; E11.42 Type 2 diabetes mellitus with diabetic polyneuropathy; M21.172 Varus deformity, not elsewhere classified, left ankle; M21.171 Varus deformity, not elsewhere classified, right ankle; E11.65 Type 2 diabetes mellitus with hyperglycemia; G25.81 Restless legs syndrome; R29.6 Repeated falls; Z79.4 Long term (current) use of insulin; Z79.02 Long term (current) use of antithrombotics/antiplatelets; Z79.82 Long term (current) use of aspirin; Z79.899 Other long term (current) drug therapy
CPT/HCPCS: 15272; 15275; 29445; 82962; Q4186

== ENCOUNTER 2021-03-03 19:27 | Inpatient (IN) | payer MEDICARE, MEDICAID, SELFPAY ==
[2018-09-21 13:23] VITALS: BMI 29.3
[2021-03-03 19:28] VITALS: BP 139/60; PULSE 108; RESP 18; TEMP 39.1; O2SAT 95; BMI 30.7
[2021-03-03 19:37] VITALS: BP 139/60; PULSE 108; RESP 18; TEMP 39.1; O2SAT 95
--- NOTE | 2021-03-03 19:43 | EKG12_ITS ---
Test Reason : DYSRYTHMIA Blood Pressure : / mmHG Vent. Rate : 102 BPM Atrial Rate : 102 BPM P-R Int : 142 ms QRS Dur : 086 ms QT Int : 336 ms P-R-T Axes : 046 004 037 degrees QTc Int : 437 ms Sinus tachycardia Otherwise normal ECG Confirmed by OTTO DELVALLE, DOMINIQUE ([id number]), script editor HARINI PHAM ([id number]) on 03/05/2021 11:12:32 AM Referred By: DONNIE Confirmed By:DOMINIQUE MENJIVAR MD
--- NOTE | 2021-03-03 19:44 | EDS_ITS ---
HPI History of Present Illness Chief Complaint: General Illness Informant: patient Narrative Narrative: 55-year-old female presenting with fever vomiting diarrhea since yesterday. She has a history of diabetes and coronary artery disease. She last had Advil approximately 5 hours ago. She notes a pain on the proximal medial aspect of her thigh but no rash or swelling. No recent medication changes. She denies cough shortness of breath sore throat runny nose. She has a history of Charcot's foot on the left and is currently seeing the wound clinic. She also sees podiatry with Dr[facility]. [facility] Medical History Abscess of right lower leg Acquired varus deformity of left foot Acquired varus deformity of right foot Anemia Anxiety Anxiety and depression Atherosclerosis of [place] coronary artery of [place] heart without angina pectoris Back pain, chronic Cellulitis of foot, left Chest pain Chronic renal failure Chronic renal insufficiency Chronic ulcer of left foot with fat layer exposed Chronic ulcer of left foot with fat layer exposed Chronic ulcer of left foot with necrosis of muscle Costochondritis Debility Delayed wound healing Delayed wound healing Delayed wound healing Depression Diabetic foot ulcer associated with type 2 diabetes mellitus Diabetic infection of left foot Diabetic polyneuropathy Diabetic ulcer of right ankle Essential (primary) hypertension GERD (gastroesophageal reflux disease) GERD (gastroesophageal reflux disease) Hemoglobin A1c greater than 9.0% HLD (hyperlipidemia) Hypomagnesemia Ischemic cardiomyopathy Malnutrition Necrotizing soft tissue infection Non-compliance Normocytic anemia NSTEMI (non-ST elevated myocardial infarction) (09/20/18) Obesity Obesity (BMI 30.0-34.9) Osteomyelitis of left foot RLS (restless legs syndrome) RLS (restless legs syndrome) Severe sepsis Syncope (12/30/20) 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 II diabetes mellitus, uncontrolled Ulcer of left foot with muscle involvement without evidence of necrosis Ulcer of right ankle Ulcer of right lower extremity with fat layer exposed Home Medications atorvastatin 80 mg tablet 80 mg PO QHS #90 tablet 11/30/19 [Rx Last Taken 11/13/20 21:00] insulin lispro 20 unit SC TIDCM 08/31/20 [History Last Taken 11/14/20 09:00] paroxetine HCl 20 mg PO QHS 09/12/20 [History Last Taken 11/13/20 21:00] polysaccharide iron complex 150 mg PO DAILYCM 09/12/20 [History Last Taken 11/11/20 09:00] pramipexole 1.5 mg PO BID 09/12/20 [History Last Taken 11/13/20 21:00] acetaminophen 1,000 mg PO Q6H PRN PRN tablet 09/19/20 [Rx Last Taken Unknown] peg [id number] 2 drp EACH EYE Q1H PRN bottle 09/19/20 [Rx Last Taken Unknown] aspirin 81 mg PO DAILY@0800 tab.chew 11/15/20 [Rx Last Taken Unknown] losartan 1 tablet PO DAILY 12/29/20 [History Last Taken Unknown] clopidogrel 75 mg PO DAILY #0 tablet 01/01/21 [Rx Last Taken Unknown] metoprolol succinate 25 mg PO DAILY #30 tab 01/01/21 [Rx Last Taken Unknown] gabapentin 300 mg capsule 900 mg PO TID cap 01/20/21 [History Last Taken Unknown] insulin glargine 100 unit/mL (3 mL) subcutaneous pen 30 unit SC DAILY ml 01/20/21 [History Last Taken Unknown] isosorbide mononitrate 30 mg tablet,extended release 24 hr 30 mg PO BID #60 tablet 01/20/21 [Rx Last Taken Unknown] nitroglycerin 0.4 mg sublingual tablet 0.4 mg SL Q5-15M PRN #25 tablet 01/20/21 [Rx Last Taken Unknown] Allergy/AdvReac Type Severity Reaction Status Date / Time Penicillins Allergy Shortness Verified 03/03/21 19:31 of breath vancomycin Allergy Itching Verified 03/03/21 19:31 metronidazole AdvReac Nausea Verified 03/03/21 19:31 OXYCONTIN Allergy Shortness Uncoded 01/20/21 11:29 of breath Family History Mother Diabetes CVA (cerebral vascular accident) Brother CAD (coronary artery disease) CABG X 3 Cancer testicular Diabetes Brother CAD (coronary artery disease) CABG X3 Diabetes Brother CAD (coronary artery disease) Stents Diabetes Sister CAD (coronary artery disease) CABG x 3 CVA (cerebral vascular accident) Diabetes Surgical History History of bilateral carpal tunnel release History of History of coronary artery stent placement (12/31/20) History of foot surgery History of rotator cuff surgery Social History Smoking Status: Never smoker alcohol intake: never substance use type: does not use caffeine: Yes Type: carbonated beverages Number of servings: 2 ROS ROS ED Constitutional Constitutional ED: Reports chills, fever(s) and sweats; Denies weight loss Eyes Eyes: Denies change in vision or diplopia ENT ENT ED: Denies ear pain, rhinorrhea or sore throat Cardiovascular Cardiovascular: Denies chest pain, orthopnea, palpitations or racing heartbeat Respiratory/Chest Respiratory/Chest: Denies cough, dyspnea or orthopnea Gastrointestinal Gastrointestinal: Reports diarrhea, nausea and vomiting; Denies abdominal pain Genitourinary Genitourinary ED: Reports other Details: Decreased urination ; Denies dysuria, hematuria or urinary frequency Musculoskeletal Musculoskeletal: Reports back pain and myalgias; Denies arthralgias Integumentary Denies abscess or rash Neurologic Neurologic: Reports headache(s); Denies weakness Psychiatric Psychiatric: Denies anxiety, depression, suicidal ideation or suicidal thoughts Endocrine Endocrinology: Denies polydipsia, polyphagia or polyuria Allergic/Immunologic Allergic/Immunologic ED: Denies mouth swelling, tongue swelling or urticaria EXAM Physical Exam Const Vital Signs: 03/03/21 19:28 03/03/21 19:37 03/03/21 20:01 Temperature 102.3 F H 102.3 F H Temperature Source Oral Oral Pulse Rate 108 H 108 H Respiratory Rate 18 18 Respiratory Pattern Normal Blood Pressure 139/60 H 139/60 H Blood Pressure Mean 86 86 Pulse Ox 95 95 Oxygen Delivery Method Room Air Room Air Room Air 03/03/21 20:06 03/03/21 20:40 Temperature 102.3 F H Temperature Source Oral Pulse Rate 106 H 97 Respiratory Rate 12 18 Respiratory Pattern Blood Pressure 124/59 H 136/70 H Blood Pressure Mean 80 92 Pulse Ox 96 95 Oxygen Delivery Method Room Air Room Air Positive well nourished and well developed General Appearance ED: well developed HEENT Reports normocephalic, head/scalp atraumatic and moist mucous membranes Eyes PERRL and EOMs intact bilaterally Neck no lymphadenopathy, supple and no JVD Neck Narrative: There is no evidence of meningitic signs on neck examination Resp normal respiratory effort and clear to auscultation bilaterally Cardio regular rate and no murmurs Rate: tachycardic GI normal to inspection, nondistended, normoactive bowel sounds and non-tender Palpation: soft Back/Spine no CVA tenderness and normal ROM Extremity Extremity Narrative: Left foot in boot/brace General Extremety ED: Negative for edema General Extremity: Negative for edema Neuro oriented x3 and CN's II-XII intact bilaterally Sensorium / Orientation: alert Motor Exam: strength 5/5 throughout Psych mental status grossly normal Mood & Affect: Negative for depressed or tearful Skin no rashes or lesions noted and no wounds MDM MDM MDM Narrative Medical decision making narrative: My interpretation of the chest x-ray is no acute process. Radiology concurs. Patient's white count is elevated 19.5. Creatinine elevated off baseline at 1.92. Glucose 400. Lactic acid is normal. Covid test negative. Influenza is also negative. CT the abdomen pelvis negative. Stool cultures will be ordered. Patient received IV fluids and Tylenol. Lab Data Attestation: I reviewed the patient's lab results. Labs: Laboratory Results - last 24 hr 03/03/21 03/03/21 03/03/21 19:55 19:55 19:55 WBC 19.5 H RBC 3.29 L Hgb 9.4 L Hct 29.5 L MCV 89.7 MCH 28.6 MCHC 31.9 L RDW Std Deviation 44.7 H RDW Coeff of Fior 13.6 Plt Count 260 MPV 11.5 Immature Gran % (Auto) 1.000 H Neut % (Auto) 91.6 H Lymph % (Auto) 3.4 L Sutton % (Auto) 3.6 Eos % (Auto) 0.2 Baso % (Auto) 0.2 Absolute Neuts (auto) 17.8 H Absolute Lymphs (auto) 0.67 L Nucleated RBC % 0 PT 15.8 H INR 1.3 APTT 35.2 Sodium 134 L Potassium 4.1 Chloride 103 Carbon Dioxide 23.0 Anion Gap 8 BUN 41 H Creatinine 1.92 H Estim Creat Clear Calc 30.99 Est GFR (MDRD) Af Amer 35 L Est GFR (MDRD) Non-Af 29 L BUN/Creatinine Ratio 21.4 H Glucose 400 H Lactic Acid Calcium 8.6 Total Bilirubin 0.70 AST 20 ALT 22 Alkaline Phosphatase 132 H Total Protein 6.8 Albumin 2.4 L Globulin 4.4 H Albumin/Globulin Ratio 0.5 L Lipase Urine Color Urine Clarity Urine pH Ur Specific [place] Urine Protein Urine Glucose (UA) Urine Ketones Urine Occult Blood Urine Nitrite Urine Bilirubin Urine Urobilinogen Ur Leukocyte Esterase Urine RBC Urine WBC Ur Squamous Epith Cells Amorphous Sediment Urine Bacteria Urine Mucus 03/03/21 03/03/21 03/03/21 19:55 19:55 20:30 WBC RBC Hgb Hct MCV MCH MCHC RDW Std Deviation RDW Coeff of Fior Plt Count MPV Immature Gran % (Auto) Neut % (Auto) Lymph % (Auto) Sutton % (Auto) Eos % (Auto) Baso % (Auto) Absolute Neuts (auto) Absolute Lymphs (auto) Nucleated RBC % PT INR APTT Sodium Potassium Chloride Carbon Dioxide Anion Gap BUN Creatinine Estim Creat Clear Calc Est GFR (MDRD) Af Amer Est GFR (MDRD) Non-Af BUN/Creatinine Ratio Glucose Lactic Acid 1.2 Calcium Total Bilirubin AST ALT Alkaline Phosphatase Total Protein Albumin Globulin Albumin/Globulin Ratio Lipase 129 Urine Color Yellow Urine Clarity Clear Urine pH 5.0 Ur Specific [place] 1.030 Urine Protein 500 H Urine Glucose (UA) 1000 H Urine Ketones 5 H Urine Occult Blood 25 H Urine Nitrite Negative Urine Bilirubin Negative Urine Urobilinogen Normal Ur Leukocyte Esterase 25 H Urine RBC 0 SEEN Urine WBC 0-5 SEEN Ur Squamous Epith Cells 0-5 SEEN Amorphous Sediment 1+ Urine Bacteria 1+ Urine Mucus 1+ Radiography Diagnostic Testing: Radiology Impression Chest X-Ray 03/03/21 19:57 IMPRESSION: No acute pulmonary process Electronically Signed: Garrick Lopez MD at 20:23 EDT , Service support , Abdomen/Pelvis CT 03/03/21 20:30 IMPRESSION: No suspicious solid organ abnormality No CT evidence of an acute inflammatory process No free intraperitoneal fluid, air, or suspicious adenopathy Uterus is still present, the endometrium cannot be accurately evaluated with CT. Degenerative bony changes Electronically Signed: Garrick Lopez MD at 21:12 EDT , Service support , EKG Initial EKG: Attestation: I personally reviewed and interpreted this EKG as follows: Comments: Initial EKG is a sinus tachycardia at a rate of 102. No concerning features of ACS or ectopy. Discharge Plan Dx/Rx/DC Orders Clinical Impression: Sepsis, Type 2 diabetes mellitus with hyperglycemia, FELI (acute kidney injury), Gastroenteritis Disposition Disposition: Acute Care Hospital [facility]
--- NOTE | 2021-03-03 19:57 | RAD_ITS ---
STUDY: X-RAY CHEST REASON FOR EXAM: Female, 55 years old. fever TECHNIQUE: Single AP portable view of the chest. COMPARISON: 12/29/2020 FINDINGS: The lungs are clear and expanded. There is no demonstrated pleural abnormality. Normal size heart. Normal mediastinum and elvie. Normal visualized pulmonary arteries. Normal visualized aortic arch and descending thoracic aorta. There are diffuse degenerative changes of the visualized thoracic spine. Normal visualized ribs, clavicles, and shoulders. There is no demonstrated abnormality of the visualized soft tissue structures of the upper abdomen. RAD/Chest 1 View (Portable) IMPRESSION: No acute pulmonary process Electronically Signed: Garrick Lopez MD at 20:23 EDT , Service support ,
[2021-03-03] MEDS: 0.9% Normal Saline 1,000 ML 999 ML IV (20:00)
[2021-03-03] MEDS: Acetaminophen 500 MG Tablet 1000 MG PO (20:00)
[2021-03-03 20:06] VITALS: BP 124/59; PULSE 106; RESP 12; O2SAT 96
[2021-03-03 20:09] LABS: Absolute Lymphocyte Count 0.67 X10^3/uL (0.83-4.51); Absolute Neutrophil Count 17.8 X10^3/uL (2.0-7.7); Basophil# 0.03 X10^3/uL; Basophil% 0.2 % (0-1); Eosinophil# 0.03 X10^3/uL; Eosinophils% 0.2 % (0-5); Hematocrit 29.5 % (37-47); Hemoglobin 9.4 g/dL (12.0-15.0); Lymphocyte # 0.67 X10^3/ul (0.83-4.51); Lymphocyte % 3.4 % (19-41); Mean Corp Hgb Conc 31.9 g/dL (32-36); Mean Corpuscular Hgb 28.6 pg (27.0-32.0); Mean Corpuscular Volume 89.7 fL (81-99); Mean Platelet Vol. 11.5 fl (6.2-12.0); Monocyte% 3.6 % (0-10); NRBC Flagged by Analyzer 0 % (0-5); Neutrophil # 17.83 X10^3/uL (2.7-7.7); Neutrophil % 91.6 % (47-70); Platelet Count 260 K/mm3 (150-450); RBC Distribution Width CV 13.6 % (11.6-14.6); RBC Distribution Width SD 44.7 fl (35.1-43.9); Red Blood Count 3.29 M/mm3 (4.2-5.4); White Blood Count 19.5 K/mm3 (4.4-11.0)
[2021-03-03 20:24] LABS: International Normalized Ratio 1.3; Prothrombin Time (Protime)PT. 15.8 SECONDS (11.7-14.9)
[2021-03-03 20:25] LABS: Partial Thromboplast Time 35.2 Seconds (24.1-36.2)
[2021-03-03 20:28] LABS: ALB/GLOB Ratio 0.5 RATIO (0.9-2.4); AST(SGOT) 20 U/L (15-37); Alanine Aminotransfer ALT/SGPT 22 U/L (13-56); Albumin, Serum 2.4 g/dL (3.2-5.0); Alkaline Phosphatase 132 U/L (45-117); Anion Gap 8 (5-15); BUN 41 mg/dL (7-18); BUN/Creat Ratio 21.4 RATIO (10-20); Calcium,Total 8.6 mg/dL (8.5-10.1); Chloride 103 mmol/L (98-107); Creatinine, Serum 1.92 mg/dL (0.55-1.02); EST Glomerular Filtration Rate 29 mL/min (>60); Est Glom Filt Rate - Afr Amer 35 mL/min (>60); Estimated Creatinine Clearance 30.99 ml/min; Globulin 4.4 g/dL (2.2-4.2); Glucose 400 mg/dL (74-106); Potassium 4.1 mmol/L (3.5-5.1); Protein, Total 6.8 g/dL (6.4-8.2); Sodium Level 134 mmol/L (136-145)
--- NOTE | 2021-03-03 20:30 | CT_ITS ---
STUDY: CT ABDOMEN AND PELVIS WITHOUT CONTRAST REASON FOR EXAM: Female, 55 years old. Abdominal pain leukocytosis RADIATION DOSAGE (If Supplied By Facility): CTDIvol = ( 15.87 ) mGy, DLP = ( 888.11 ) mGycm TECHNIQUE: Transaxial images were obtained from the dome of the diaphragm to the symphysis pubis without oral contrast, and without intravenous contrast. Sagittal and coronal images were reconstructed. Individualized dose optimization techniques were used for this CT. COMPARISON: None. FINDINGS: There are chronic interstitial changes of the lung bases. There are calcified coronary vessels Normal liver. Normal gallbladder and extrahepatic biliary system. Normal spleen. Normal pancreas. Normal bilateral adrenal glands. Normal right kidney. Normal left kidney. Normal visualized stomach. Normal small intestine. Retained stool noted in the colon. There is non-visualization of the appendix. Normal abdominal aorta. Normal inferior vena cava. Normal retroperitoneum. Normal urinary bladder. Uterus is present, the endometrium cannot be accurately evaluated with CT. Normal abdominal wall. There are diffuse degenerative changes of the visualized lumbar spine, and pelvis. CT/Abdomen/Pelvis without Cont IMPRESSION: No suspicious solid organ abnormality No CT evidence of an acute inflammatory process No free intraperitoneal fluid, air, or suspicious adenopathy Uterus is still present, the endometrium cannot be accurately evaluated with CT. Degenerative bony changes Electronically Signed: Garrick Lopez MD at 21:12 EDT , Service support ,
[2021-03-03 20:34] LABS: Lactic Acid 1.2 mmol/L (0.4-1.9)
[2021-03-03 20:38] LABS: Red Blood Cells-Urine 0 SEEN /hpf (0-5)
[2021-03-03 20:40] VITALS: BP 136/70; PULSE 97; RESP 18; TEMP 39.1; O2SAT 95
[2021-03-03 20:48] LABS: Lipase 129 U/L (73-393)
[2021-03-03 21:01] LABS: Color, Urine Yellow (Yellow); Glucose, Dipstick 1000 mg/dl (Normal); Ketone-Dipstick 5 mg/dl (Negative); Leukocyte Esterase-Dipstick 25 /ul (Negative); Nitrite-Dipstick Negative (Negative); Occult Blood-Urine 25 /ul (Negative); Protein-Dipstick 500 mg/dl (Negative); Urine Bilirubin Dipstick Negative (Negative); Urine Clarity Clear (Clear); Urine Urobilinogen Normal (Normal)
[2021-03-03 21:13] LABS: Bacteria 1+ /hpf (None Seen); Squamous Epithelial Cells - UA 0-5 SEEN /hpf (5-10); White Blood Cells 0-5 SEEN /hpf (0-5)
[2021-03-03 21:14] LABS: Amorphous Sediment 1+; Mucous, Urine 1+ /hpf (<or=2+)
[2021-03-03] MEDS: 0.9% Normal Saline 1,000 ML 250 ML IV (21:40)
[2021-03-03 21:51] VITALS: BP 113/61; PULSE 90; PULSE 91; RESP 18; RESP 20; TEMP 37.7; O2SAT 96
--- NOTE | 2021-03-03 21:55 | ED.RN ---
PT stated she hasn't eaten in 2 days. She did have some crackers today but that gave her diarrhea. PT requesting meal. Saltines and levi crackers were given. PT requesting a taco pizza or a rainey cheeseburger. This RN is not able to accommodate meal choice at this time.
--- NOTE | 2021-03-03 22:01 | PCM.HP.STD ---
Documented by User: BRIAN Fitzgerald 03/03/21 22:31 HPI - General General Date of Admission: 03/03/21 HPI Narrative DIONY ROCHA, is a 55 F who presents today with fever, vomiting, diarrhea. Patient reports that symptoms started yesterday and that she took Advil approximately 5 hours ago. Upon presentation to the ER patient is tachycardic and fevered at 102.3. Patient also complains of bloated feeling but denies abdominal pain or cramping. Patient has a history of diabetes with neuropathy and coronary artery disease along with Charcot's foot on the left for which she follows with podiatry where she was last seen on February 24. [facility] Medical History Acquired varus deformity of left foot Acquired varus deformity of right foot Anxiety and depression Atherosclerosis of [place] coronary artery of [place] heart without angina pectoris Back pain, chronic Chronic renal insufficiency Chronic ulcer of left foot with fat layer exposed Delayed wound healing Diabetic foot ulcer associated with type 2 diabetes mellitus Diabetic infection of left foot Diabetic polyneuropathy Diabetic ulcer of right ankle Essential (primary) hypertension GERD (gastroesophageal reflux disease) Hemoglobin A1c greater than 9.0% HLD (hyperlipidemia) Ischemic cardiomyopathy Non-compliance Normocytic anemia NSTEMI (non-ST elevated myocardial infarction) (09/20/18) Obesity (BMI 30.0-34.9) Osteomyelitis of left foot RLS (restless legs syndrome) Type 2 diabetes mellitus with diabetic polyneuropathy Ulcer of left foot with muscle involvement without evidence of necrosis Ulcer of right lower extremity with fat layer exposed Home Medications atorvastatin 80 mg tablet 80 mg PO QHS #90 tablet 11/30/19 [Rx Last Taken 11/13/20 21:00] insulin lispro 20 unit SC TIDCM 08/31/20 [History Last Taken 11/14/20 09:00] paroxetine HCl 20 mg PO QHS 09/12/20 [History Last Taken 11/13/20 21:00] polysaccharide iron complex 150 mg PO DAILYCM 09/12/20 [History Last Taken 11/11/20 09:00] pramipexole 1.5 mg PO BID 09/12/20 [History Last Taken 11/13/20 21:00] aspirin 81 mg PO DAILY@0800 tab.chew 11/15/20 [Rx Last Taken Unknown] clopidogrel 75 mg PO DAILY #0 tablet 01/01/21 [Rx Last Taken Unknown] gabapentin 300 mg capsule 900 mg PO TID cap 01/20/21 [History Last Taken Unknown] insulin glargine 100 unit/mL (3 mL) subcutaneous pen 30 unit SC DAILY ml 01/20/21 [History Last Taken Unknown] nitroglycerin 0.4 mg sublingual tablet 0.4 mg SL Q5-15M PRN #25 tablet 01/20/21 [Rx Last Taken Unknown] isosorbide mononitrate 30 mg PO DAILY 03/03/21 [History Last Taken 03/02/21 22:00] Allergy/AdvReac Type Severity Reaction Status Date / Time Penicillins Allergy swelling Verified 03/03/21 22:43 in throat vancomycin Allergy Itching Verified 03/03/21 19:31 metronidazole AdvReac Nausea Verified 03/03/21 19:31 OXYCONTIN Allergy Shortness Uncoded 01/20/21 11:29 of breath Family History Mother Diabetes CVA (cerebral vascular accident) Brother CAD (coronary artery disease) CABG X 3 Cancer testicular Diabetes Brother CAD (coronary artery disease) CABG X3 Diabetes Brother CAD (coronary artery disease) Stents Diabetes Sister CAD (coronary artery disease) CABG x 3 CVA (cerebral vascular accident) Diabetes Surgical History History of bilateral carpal tunnel release History of History of coronary artery stent placement (12/31/20) History of foot surgery History of rotator cuff surgery Social History Smoking Status: Never smoker alcohol intake: never substance use type: does not use caffeine: Yes Type: carbonated beverages Number of servings: 2 ROS Constitutional Constitutional: Reports fever(s) and malaise; Denies anorexia Cardiovascular Cardiovascular: Denies chest pain, edema or palpitations Respiratory/Chest Respiratory/Chest: Denies cough, shortness of breath at rest or shortness of breath with exertion Gastrointestinal Gastrointestinal: Reports bloating, diarrhea, nausea and vomiting; Denies abdominal pain Genitourinary Genitourinary: Denies dysuria Musculoskeletal Musculoskeletal: Denies back pain, extremity pain or joint pain Integumentary Integumentary: Reports wounds; Denies dry skin Neurologic Neurologic: Denies abnormal gait, abnormal speech, confusion or dizziness Psychiatric Psychiatric: Denies anxiety or depression Endocrine Endocrinology: Denies change in body appearance Hematologic/Lymphatic Hematologic/Lymphatic: Denies easy bleeding or easy bruising Vital Signs Vital Signs Vital Signs: 03/03/21 19:28 03/03/21 19:37 03/03/21 20:01 Temperature 102.3 F H 102.3 F H Temperature Source Oral Oral Pulse Rate 108 H 108 H Respiratory Rate 18 18 Respiratory Pattern Normal Blood Pressure 139/60 H 139/60 H Blood Pressure Mean 86 86 Pulse Ox 95 95 Oxygen Delivery Method Room Air Room Air Room Air 03/03/21 20:06 03/03/21 20:40 03/03/21 21:51 Temperature 102.3 F H 99.9 F H Temperature Source Oral Oral Pulse Rate 106 H 97 90 Respiratory Rate 12 18 18 Respiratory Pattern Blood Pressure 124/59 H 136/70 H 113/61 Blood Pressure Mean 80 92 78 Pulse Ox 96 95 96 Oxygen Delivery Method Room Air Room Air Room Air Weight Weight: 190 lb Body Mass Index (BMI) 30.7 Physical Exam Const alert and oriented x3 General Appearance: cooperative HEENT normocephalic and head/scalp atraumatic Eyes PERRL Neck supple and no JVD General: trachea midline Lymph Lymphatic: no lymphadenopathy noted Resp normal respiratory effort, normal air movement and clear to auscultation bilaterally Cardio regular rate, regular rhythm, S1 normal heart sound and S2 normal heart sound Rate: tachycardic GI normal to inspection, nondistended, normoactive bowel sounds, soft to palpation and non-tender Inspection: abdominal distention Extremity normal capillary refill and no clubbing, cyanosis or edema Skin General Skin Exam: turgor normal Neuro CN's II-XII intact bilaterally Psych thought process normal, cooperative and affect normal Appearance: appropriate Lab / Micro Data Result Diagrams: 03/03/21 19:55 03/03/21 19:55 Labs: Laboratory Results - last 24 hr 03/03/21 03/03/21 03/03/21 19:55 19:55 19:55 WBC 19.5 H RBC 3.29 L Hgb 9.4 L Hct 29.5 L MCV 89.7 MCH 28.6 MCHC 31.9 L RDW Std Deviation 44.7 H RDW Coeff of Fior 13.6 Plt Count 260 MPV 11.5 Immature Gran % (Auto) 1.000 H Neut % (Auto) 91.6 H Lymph % (Auto) 3.4 L [place] % (Auto) 3.6 Eos % (Auto) 0.2 Baso % (Auto) 0.2 Absolute Neuts (auto) 17.8 H Absolute Lymphs (auto) 0.67 L Nucleated RBC % 0 PT 15.8 H INR 1.3 APTT 35.2 Sodium 134 L Potassium 4.1 Chloride 103 Carbon Dioxide 23.0 Anion Gap 8 BUN 41 H Creatinine 1.92 H Estim Creat Clear Calc 30.99 Est GFR (MDRD) Af Amer 35 L Est GFR (MDRD) Non-Af 29 L BUN/Creatinine Ratio 21.4 H Glucose 400 H Lactic Acid Calcium 8.6 Total Bilirubin 0.70 AST 20 ALT 22 Alkaline Phosphatase 132 H Total Protein 6.8 Albumin 2.4 L Globulin 4.4 H Albumin/Globulin Ratio 0.5 L Lipase Urine Color Urine Clarity Urine pH Ur Specific [place] Urine Protein Urine Glucose (UA) Urine Ketones Urine Occult Blood Urine Nitrite Urine Bilirubin Urine Urobilinogen Ur Leukocyte Esterase Urine RBC Urine WBC Ur Squamous Epith Cells Amorphous Sediment Urine Bacteria Urine Mucus 03/03/21 03/03/21 03/03/21 19:55 19:55 20:30 WBC RBC Hgb Hct MCV MCH MCHC RDW Std Deviation RDW Coeff of [place] Plt Count MPV Immature Gran % (Auto) Neut % (Auto) Lymph % (Auto) [place] % (Auto) Eos % (Auto) Baso % (Auto) Absolute Neuts (auto) Absolute Lymphs (auto) Nucleated RBC % PT INR APTT Sodium Potassium Chloride Carbon Dioxide Anion Gap BUN Creatinine Estim Creat Clear Calc Est GFR (MDRD) Af Amer Est GFR (MDRD) Non-Af BUN/Creatinine Ratio Glucose Lactic Acid 1.2 Calcium Total Bilirubin AST ALT Alkaline Phosphatase Total Protein Albumin Globulin Albumin/Globulin Ratio Lipase 129 Urine Color Yellow Urine Clarity Clear Urine pH 5.0 Ur Specific [place] 1.030 Urine Protein 500 H Urine Glucose (UA) 1000 H Urine Ketones 5 H Urine Occult Blood 25 H Urine Nitrite Negative Urine Bilirubin Negative Urine Urobilinogen Normal Ur Leukocyte Esterase 25 H Urine RBC 0 SEEN Urine WBC 0-5 SEEN Ur Squamous Epith Cells 0-5 SEEN Amorphous Sediment 1+ Urine Bacteria 1+ Urine Mucus 1+ Micro: Microbiology 03/03/21 19:55 Influenza Types A,B Direct FA (MIKE) - Final Mucosa - Nasopharyngeal 03/03/21 19:55 SARS-CoV-2 Antigen (Rapid) - Final Mucosa - Nasopharyngeal Radiology Impression Chest X-Ray 03/03/21 19:57 IMPRESSION: No acute pulmonary process Electronically Signed: Garrick Lopez MD at 20:23 EDT , Service support , Abdomen/Pelvis CT 03/03/21 20:30 IMPRESSION: No suspicious solid organ abnormality No CT evidence of an acute inflammatory process No free intraperitoneal fluid, air, or suspicious adenopathy Uterus is still present, the endometrium cannot be accurately evaluated with CT. Degenerative bony changes Electronically Signed: Garrick Lopez MD at 21:12 EDT , Service support , Assessment & Plan Assessment/Plan (1) Zgujx-ur-wscgupu kidney injury: QUALIFIERS: Acute renal failure type: unspecified Chronic kidney disease stage: stage 3 (moderate) Chronic kidney disease stage 3 subtype: stage 3a (GFR 45-59) Qualified Code(s): N17.9 - Acute kidney failure, unspecified; N18.31 - Chronic kidney disease, stage 3a (2) Gastroenteritis: (3) Sepsis: QUALIFIERS: Acute renal failure type: unspecified Sepsis acute organ dysfunction status: with acute organ dysfunction Sepsis type: sepsis due to unspecified organism Severe sepsis acute organ dysfunction type: acute renal failure Severe sepsis shock status: without septic shock Qualified Code(s): A41.9 - Sepsis, unspecified organism; R65.20 - Severe sepsis without septic shock; N17.9 - Acute kidney failure, unspecified PLAN: 1. Gastroenteritis -Admit to [facility] with telemetry -Influenza and Covid negative, will test for C. difficile, ova and parasites. -As needed Zofran as needed as patient continues to be nauseous and vomiting -Continue IV hydration at 100 ml/hour -Patient placed in special contact precautions pending results of stool testing 2. Sepsis -See above 3. Acute on chronic kidney injury stage IIIa -Continue IV hydration at 100ml/hour -CMP daily, trend BUN/creatinine. 4. Uncontrolled diabetes mellitus type 2 with diabetic polyneuropathy -Continue patient home regimen of Lantus 30 units subcu daily along with Humalog 20 units 3 times daily with meals -Blood sugars before meals and at bedtime with sliding scale insulin also ordered -Patient placed on consistent carb calorie controlled diet 5. Essential hypertension -Patient placed on cardiac heart healthy diet along with consistent carb calorie controlled -Continue metoprolol, isosorbide. Will hold losartan at this time 6. Hyperlipidemia -Continue atorvastatin 7. Charcot's joint of left foot -Patient was recently at podiatry office on 02/[address] Cuevas where she noted no infection however due to patient's elevated white blood cell count will consult wound nurse to assess. Insert DVT-SQ heparin This patient was seen by BRIAN Fitzgerald under the supervision of Dr. Irizarry. Documented by User: Dr. Deepa Irizarry MD 03/03/21 22:59 HPI - General General Date of Admission: 03/03/21 [facility] Medical History Acquired varus deformity of left foot Acquired varus deformity of right foot Anxiety and depression Atherosclerosis of [place] coronary artery of [place] heart without angina pectoris Back pain, chronic Chronic renal insufficiency Chronic ulcer of left foot with fat layer exposed Delayed wound healing Diabetic foot ulcer associated with type 2 diabetes mellitus Diabetic infection of left foot Diabetic polyneuropathy Diabetic ulcer of right ankle Essential (primary) hypertension GERD (gastroesophageal reflux disease) Hemoglobin A1c greater than 9.0% HLD (hyperlipidemia) Ischemic cardiomyopathy Non-compliance Normocytic anemia NSTEMI (non-ST elevated myocardial infarction) (09/20/18) Obesity (BMI 30.0-34.9) Osteomyelitis of left foot RLS (restless legs syndrome) Type 2 diabetes mellitus with diabetic polyneuropathy Ulcer of left foot with muscle involvement without evidence of necrosis Ulcer of right lower extremity with fat layer exposed Home Medications atorvastatin 80 mg tablet 80 mg PO QHS #90 tablet 11/30/19 [Rx Last Taken 11/13/20 21:00] insulin lispro 20 unit SC TIDCM 08/31/20 [History Last Taken 11/14/20 09:00] paroxetine HCl 20 mg PO QHS 09/12/20 [History Last Taken 11/13/20 21:00] polysaccharide iron complex 150 mg PO DAILYCM 09/12/20 [History Last Taken 11/11/20 09:00] pramipexole 1.5 mg PO BID 09/12/20 [History Last Taken 11/13/20 21:00] aspirin 81 mg PO DAILY@0800 tab.chew 11/15/20 [Rx Last Taken Unknown] clopidogrel 75 mg PO DAILY #0 tablet 01/01/21 [Rx Last Taken Unknown] gabapentin 300 mg capsule 900 mg PO TID cap 01/20/21 [History Last Taken Unknown] insulin glargine 100 unit/mL (3 mL) subcutaneous pen 30 unit SC DAILY ml 01/20/21 [History Last Taken Unknown] nitroglycerin 0.4 mg sublingual tablet 0.4 mg SL Q5-15M PRN #25 tablet 01/20/21 [Rx Last Taken Unknown] isosorbide mononitrate 30 mg PO DAILY 03/03/21 [History Last Taken 03/02/21 22:00] Allergy/AdvReac Type Severity Reaction Status Date / Time Penicillins Allergy swelling Verified 03/03/21 22:43 in throat vancomycin Allergy Itching Verified 03/03/21 19:31 metronidazole AdvReac Nausea Verified 03/03/21 19:31 OXYCONTIN Allergy Shortness Uncoded 01/20/21 11:29 of breath Family History Mother Diabetes CVA (cerebral vascular accident) Brother CAD (coronary artery disease) CABG X 3 Cancer testicular Diabetes Brother CAD (coronary artery disease) CABG X3 Diabetes Brother CAD (coronary artery disease) Stents Diabetes Sister CAD (coronary artery disease) CABG x 3 CVA (cerebral vascular accident) Diabetes Surgical History History of bilateral carpal tunnel release History of History of coronary artery stent placement (12/31/20) History of foot surgery History of rotator cuff surgery Social History Smoking Status: Never smoker alcohol intake: never substance use type: does not use caffeine: Yes Type: carbonated beverages Number of servings: 2 Lab / Micro Data Result Diagrams: 03/03/21 19:55 03/03/21 19:55 Addendum Addendum: Hospitalist note: I am seeing this patient in conjunction with Shonda Salmon. I independently seen and examined the patient. History and physical, laboratory data and imaging studies reviewed and I concur with the above admission and treatment plan. Patient presented to the emergency room because of 1 day history of nausea, vomiting, started today, associated with diarrhea, loose stool without blood, around 2-3 times a day, and also associated with fever. She denied abdominal pain or bloody stool. She denied chest pain or shortness of breath. She denied urinary symptoms. In the emergency department, patient was febrile, heart rate was 97, other vital signs were stable. Routine blood work was remarkable for significant leukocytosis, hemoglobin of 9.4g/dL which is chronic, BUN is 41, creatinine is 1.92. Blood glucose was 400 mg/dL. LFT was unremarkable. Lactic acid was 1.2. Lipase was normal. Urine analysis showed no evidence of infection. Chest x-ray showed no acute findings. CT scan abdomen and pelvis without contrast showed no acute intra-abdominal abnormalities. Patient is being admitted for sepsis could be due to gastroenteritis and also found to have acute kidney injury on top of stage IIIa chronic kidney disease. - Physical Exam General: Alert, Oriented x3, Cooperative, No apparent distress. HEENT: Atraumatic, PERRLA, EOMI. Neck: Supple, No JVD, Negative Carotid Bruits, Trachea Midline, Thyroid Normal. Lungs: Clear to auscultation, Normal air movement, No rhonchi, No wheeze, No rales. Cardiovascular: Regular rate, Regular Rhythm, Normal S1, Normal S2, PMI Normal. Abdomen: Bowel Sounds Present, Soft, Non Tender, Non-Distended, No Hepato-splenomegaly. Extremities: No clubbing, No cyanosis, No edema Skin: No rashes, chronic left foot ulcer, dressed. Neurological: Cranial nerves are intact, neuro grossly intact Vital Signs are stable. Assessment and plan: #1 sepsis: Probably due to viral gastroenteritis. No other source of infection. Chest x-ray showed no acute findings. Urinalysis showed no acute cystitis. She does have chronic left foot ulcer, looks not acutely infected. Plan: Admit to [facility] floor, telemetry monitoring, blood culture, urine culture, stool for C. difficile, stool for ova and parasites, IV fluids, Tylenol as needed, Zofran as needed, repeat CBC and CMP tomorrow morning, PT OT evaluation and treatment. At this time, no indication to start IV antibiotics. #2 acute kidney injury on top of stage IIIa chronic kidney disease: Patient looks dehydrated. Baseline creatinine has been around 1.5 mg/dL, most recent was 1.3. Admission creatinine is 1.9. Plan: IV fluids, input output chart, avoid nephrotoxic drugs, repeat BMP tomorrow morning. #3 uncontrolled type 2 diabetes mellitus: Patient is known to have uncontrolled type 2 diabetes, sugar has been high. In the ED, blood sugar was 400 mg/dL. No evidence of DKA. Plan: ADA diet, Accu-Cheks, sliding scale, continue home doses of Lantus and Humalog 3 times daily. #4 other chronic medical problems: Stable, continue current medications as above. This note was generated with [employer] dictation software. It may contain incorrect words, spelling, and punctuation that were not noted in checking the note before signing. Visit Charges Inpatient E&M: 60253 Init Hosp L3
[2021-03-03 22:40] VITALS: BMI 31.3
[2021-03-03 23:10] VITALS: BP 97/25; PULSE 87; RESP 20; TEMP 37.1; O2SAT 96
[2021-03-04] VITALS (13 sets, daily range): BP systolic 104–121; BP diastolic 51–67; PULSE 82–106; RESP 16–18; TEMP 37.1–38.2; O2SAT 93–95
[2021-03-04] MEDS: Insulin Lispro 100 UNIT/ML INSULN.PEN SC ×4 (00:18→21:53)
[2021-03-04 00:26] LABS: Bedside Glucose 310 mg/dL (70-110)
[2021-03-04] MEDS: Gabapentin 300 MG Capsule 900 MG PO ×4 (01:47→21:54)
[2021-03-04] MEDS: Pramipexole Di-HCl 1 MG Tablet 1.5 MG PO ×3 (01:47→21:53)
[2021-03-04] MEDS: Atorvastatin Calcium 80 MG Tablet PO ×2 (01:47→21:53)
[2021-03-04] MEDS: 0.9% Normal Saline 1,000 ML 100 ML IV ×3 (01:48→23:12)
[2021-03-04] MEDS: Acetaminophen 325 MG Tablet 650 MG PO ×3 (02:01→17:09)
[2021-03-04] MEDS: Zolpidem Tartrate 5 MG Tablet PO (02:01)
[2021-03-04 06:01] LABS: Absolute Lymphocyte Count 0.95 X10^3/uL (0.83-4.51); Absolute Neutrophil Count 12.2 X10^3/uL (2.0-7.7); Basophil# 0.03 X10^3/uL; Basophil% 0.2 % (0-1); Eosinophil# 0.09 X10^3/uL; Eosinophils% 0.6 % (0-5); Hematocrit 24.5 % (37-47); Hemoglobin 7.9 g/dL (12.0-15.0); Lymphocyte # 0.95 X10^3/ul (0.83-4.51); Lymphocyte % 6.8 % (19-41); Mean Corp Hgb Conc 32.2 g/dL (32-36); Mean Corpuscular Hgb 28.8 pg (27.0-32.0); Mean Corpuscular Volume 89.4 fL (81-99); Mean Platelet Vol. 10.8 fl (6.2-12.0); Monocyte# 0.68 X10^3/uL; Monocyte% 4.8 % (0-10); NRBC Flagged by Analyzer 0 % (0-5); Platelet Count 185 K/mm3 (150-450); RBC Distribution Width CV 13.7 % (11.6-14.6); Red Blood Count 2.74 M/mm3 (4.2-5.4)
[2021-03-04 06:25] LABS: ALB/GLOB Ratio 0.5 RATIO (0.9-2.4); AST(SGOT) 15 U/L (15-37); Alanine Aminotransfer ALT/SGPT 17 U/L (13-56); Albumin, Serum 1.8 g/dL (3.2-5.0); Alkaline Phosphatase 106 U/L (45-117); Anion Gap 7 (5-15); BUN 40 mg/dL (7-18); BUN/Creat Ratio 23.1 RATIO (10-20); Calcium,Total 7.7 mg/dL (8.5-10.1); Chloride 107 mmol/L (98-107); Creatinine, Serum 1.73 mg/dL (0.55-1.02); EST Glomerular Filtration Rate 32 mL/min (>60); Est Glom Filt Rate - Afr Amer 39 mL/min (>60); Globulin 3.7 g/dL (2.2-4.2); Glucose 379 mg/dL (74-106); Potassium 3.9 mmol/L (3.5-5.1); Protein, Total 5.5 g/dL (6.4-8.2); Sodium Level 136 mmol/L (136-145)
[2021-03-04] MEDS: Insulin Lispro 100 UNIT/ML INSULN.PEN 20 UNIT SC ×3 (08:42→17:11)
[2021-03-04 08:51] LABS: Bedside Glucose 345 mg/dL (70-110)
[2021-03-04] MEDS: Iron Polysaccharide Complex 150 MG CAPSULE PO (08:53)
[2021-03-04] MEDS: Aspirin 81 MG TAB.CHEW PO (08:53)
[2021-03-04] MEDS: Clopidogrel Bisulfate 75 MG Tablet PO (08:53)
[2021-03-04] MEDS: Heparin Injection (Vial) 5,000 UNIT/ML VIAL 5000 UNIT SC ×2 (08:54→21:53)
[2021-03-04] MEDS: Isosorbide Mononitrate 30 MG Tablet PO (08:54)
[2021-03-04] MEDS: Glucerna Shake 120 ML LIQUID PO ×3 (08:55→17:12)
--- NOTE | 2021-03-04 12:00 | CASEMGMT ---
Addendum entered by Alida Blum 03/06/21 14:38: Pt is . Her lives in [facility]. She states they text daily and he is planning on coming to see her in April. Addendum entered by Alida Blum 03/04/21 13:58: Discussed CCN w/pt and she voices interest in same and is agreeable to referral. Pt made aware that CCN would be for after [facility] has discharged her. She voices understanding. Call placed to Vidal @ [facility] and referral made. She is aware plan is for pt to d/c home w/[facility] initially and then CCN to follow after HHC completed. Original Note: RN CM MASON HELPER CM to room to meet with patient for initial transition planning/care coordination assessment. RN CM introduced self and role at [facility]. Pt voices understanding and consents to assessment at this time. Pt resting in bed in no distress at this time. Pt is A/O at this time and answers all questions appropriately. Care providers, pharmacy, and demographics verified/updated at this time. PCP: Dr Eric Specialists: Dr Cuevas [facility]--goes weekly on Tuesdays. Dr Jean Baptiste--[facility]. Was seeing Dr Edgar (podiatry), but states has not been there for about a year, since seeing Dr Cuevas Pt states she does not go to the counseling center d/t she does not have transportation. Preferred Pharmacy: [facility] retail pharmacy Insurance:DANIEL Servin Prescription Benefit: Yes Living Will/HPOA: Pt does not currently have LW/HCPOA and declines info at this time. LNOK: Daughter, Trisha. Cousin-Caren. Has a son, Antonio, but states He never comes to see me. Living Arrangements: Lives alone in one-story home w/basement where laundry is. 3 steps to enter home. Does not have rails on stairs to basement. States I've almost fallen down them. When asked pt if she is able to bath/dress herself, she states, I try. It's difficult. She states her cousin, Caren, will take her grocery shopping but it is difficult to get around and she usually only eats microwaveable meals. She is interested in talking w/SW for info on Meals on Wheels. LUCRETIA, Erika Lemon, made aware. Transportation: Pt does not drive. States her cousin, Caren, usually assists her w/transportation. Pt utilizes [facility] Van transportation when going to [facility] DME: States has the following DME: knee scooter, W/C, glucometer. Pt states she also has/but does not use: shower bench, BSC, walker. Pt states no need for further DME at this time. [facility]. Pt would like HHC @ discharge. Pt states would like an aide as well, as it has been difficult for her to bath herself. Pt was provided with list of [facility] providers including quality and resource use data and consistent with the patient's preferred geographic region, medical needs, and insurance network. The pt's preferred provider is [facility] 1st and then [facility]. Call placed to Mikayla @ [facility] and referral made. She was made aware anticipate discharge in 1-2 days. She states they are able to accept, as long as SOC would be Sat or Sun. They cannot do SOC on Tuesday. . Pt wishes to return home w/[facility]. CM to follow for any further discharge planning/needs. Pt voices no further concerns/needs at this time. Advised pt to ask for CM if any further questions/concerns/needs arise. Voices understanding. PLAN: Home w/[facility]. Delta MANLEY RN, CM
[2021-03-04 12:05] LABS: Bedside Glucose 273 mg/dL (70-110)
--- NOTE | 2021-03-04 13:46 | CASEMGMT ---
Social Work Note SW received referral that pt would like a Meals on Wheels Referral. SW in to speak with pt. SW introduced self and role at [facility]. Pt agreeable to Meals on Wheels referral. SW also provided pt with Meals on Wheels information. Pt denied additional needs or concerns. SW made Meals on Wheels referral. Erika Tobar [employer], ELECTROLYSIST
--- NOTE | 2021-03-04 13:47 | PN.HOSP_ITS ---
Subjective Subjective Still with abdominal pain. Objective Data Objective Data Vital Signs: Vital Signs Temp Pulse Resp BP Pulse Ox 37.1 C 89 16 108/51 L 93 03/04/21 08:39 03/04/21 08:39 03/04/21 08:39 03/04/21 08:39 03/04/21 08:39 Oxygen Delivery Method Room Air Weight: 88 kg Body Mass Index (BMI) 31.3 Intake & Output: Intake and Output for Last 24 Hours 03/02/21 03/03/21 03/04/21 23:59 23:59 23:59 Intake Total 1000 / 1000 2300.00 / 2300.00 Output Total 300 / 300 Balance 1000 / 1000 2000.00 / 1999.00 Lab / Micro Data Result Diagrams: 03/04/21 05:54 03/04/21 05:54 Labs: Laboratory Results - last 24 hr 03/03/21 03/03/21 03/03/21 19:55 19:55 19:55 WBC 19.5 H RBC 3.29 L Hgb 9.4 L Hct 29.5 L MCV 89.7 MCH 28.6 MCHC 31.9 L RDW Std Deviation 44.7 H RDW Coeff of Fior 13.6 Plt Count 260 MPV 11.5 Immature Gran % (Auto) 1.000 H Neut % (Auto) 91.6 H Lymph % (Auto) 3.4 L Christian % (Auto) 3.6 Eos % (Auto) 0.2 Baso % (Auto) 0.2 Absolute Neuts (auto) 17.8 H Absolute Lymphs (auto) 0.67 L Nucleated RBC % 0 PT 15.8 H INR 1.3 APTT 35.2 Sodium 134 L Potassium 4.1 Chloride 103 Carbon Dioxide 23.0 Anion Gap 8 BUN 41 H Creatinine 1.92 H Estim Creat Clear Calc 30.99 Est GFR (MDRD) Af Amer 35 L Est GFR (MDRD) Non-Af 29 L BUN/Creatinine Ratio 21.4 H Glucose 400 H Lactic Acid Calcium 8.6 Total Bilirubin 0.70 AST 20 ALT 22 Alkaline Phosphatase 132 H Total Protein 6.8 Albumin 2.4 L Globulin 4.4 H Albumin/Globulin Ratio 0.5 L Lipase Urine Color Urine Clarity Urine pH Ur Specific [place] Urine Protein Urine Glucose (UA) Urine Ketones Urine Occult Blood Urine Nitrite Urine Bilirubin Urine Urobilinogen Ur Leukocyte Esterase Urine RBC Urine WBC Ur Squamous Epith Cells Amorphous Sediment Urine Bacteria Urine Mucus POC Glucose 03/03/21 03/03/21 03/03/21 19:55 19:55 20:30 WBC RBC Hgb Hct MCV MCH MCHC RDW Std Deviation RDW Coeff of Fior Plt Count MPV Immature Gran % (Auto) Neut % (Auto) Lymph % (Auto) Christian % (Auto) Eos % (Auto) Baso % (Auto) Absolute Neuts (auto) Absolute Lymphs (auto) Nucleated RBC % PT INR APTT Sodium Potassium Chloride Carbon Dioxide Anion Gap BUN Creatinine Estim Creat Clear Calc Est GFR (MDRD) Af Amer Est GFR (MDRD) Non-Af BUN/Creatinine Ratio Glucose Lactic Acid 1.2 Calcium Total Bilirubin AST ALT Alkaline Phosphatase Total Protein Albumin Globulin Albumin/Globulin Ratio Lipase 129 Urine Color Yellow Urine Clarity Clear Urine pH 5.0 Ur Specific [place] 1.030 Urine Protein 500 H Urine Glucose (UA) 1000 H Urine Ketones 5 H Urine Occult Blood 25 H Urine Nitrite Negative Urine Bilirubin Negative Urine Urobilinogen Normal Ur Leukocyte Esterase 25 H Urine RBC 0 SEEN Urine WBC 0-5 SEEN Ur Squamous Epith Cells 0-5 SEEN Amorphous Sediment 1+ Urine Bacteria 1+ Urine Mucus 1+ POC Glucose 03/04/21 03/04/21 03/04/21 00:15 05:54 05:54 WBC 14.0 H RBC 2.74 L Hgb 7.9 L Hct 24.5 L MCV 89.4 MCH 28.8 MCHC 32.2 RDW Std Deviation 45.0 H RDW Coeff of Fior 13.7 Plt Count 185 MPV 10.8 Immature Gran % (Auto) 0.600 Neut % (Auto) 87.0 H Lymph % (Auto) 6.8 L Christian % (Auto) 4.8 Eos % (Auto) 0.6 Baso % (Auto) 0.2 Absolute Neuts (auto) 12.2 H Absolute Lymphs (auto) 0.95 Nucleated RBC % 0 PT INR APTT Sodium 136 Potassium 3.9 Chloride 107 Carbon Dioxide 22.0 Anion Gap 7 BUN 40 H Creatinine 1.73 H Estim Creat Clear Calc 34.40 Est GFR (MDRD) Af Amer 39 L Est GFR (MDRD) Non-Af 32 L BUN/Creatinine Ratio 23.1 H Glucose 379 H Lactic Acid Calcium 7.7 L Total Bilirubin 0.30 AST 15 ALT 17 Alkaline Phosphatase 106 Total Protein 5.5 L Albumin 1.8 L Globulin 3.7 Albumin/Globulin Ratio 0.5 L Lipase Urine Color Urine Clarity Urine pH Ur Specific [place] Urine Protein Urine Glucose (UA) Urine Ketones Urine Occult Blood Urine Nitrite Urine Bilirubin Urine Urobilinogen Ur Leukocyte Esterase Urine RBC Urine WBC Ur Squamous Epith Cells Amorphous Sediment Urine Bacteria Urine Mucus POC Glucose 310 H 03/04/21 03/04/21 08:37 11:51 WBC RBC Hgb Hct MCV MCH MCHC RDW Std Deviation RDW Coeff of Fior Plt Count MPV Immature Gran % (Auto) Neut % (Auto) Lymph % (Auto) Christian % (Auto) Eos % (Auto) Baso % (Auto) Absolute Neuts (auto) Absolute Lymphs (auto) Nucleated RBC % PT INR APTT Sodium Potassium Chloride Carbon Dioxide Anion Gap BUN Creatinine Estim Creat Clear Calc Est GFR (MDRD) Af Amer Est GFR (MDRD) Non-Af BUN/Creatinine Ratio Glucose Lactic Acid Calcium Total Bilirubin AST ALT Alkaline Phosphatase Total Protein Albumin Globulin Albumin/Globulin Ratio Lipase Urine Color Urine Clarity Urine pH Ur Specific [place] Urine Protein Urine Glucose (UA) Urine Ketones Urine Occult Blood Urine Nitrite Urine Bilirubin Urine Urobilinogen Ur Leukocyte Esterase Urine RBC Urine WBC Ur Squamous Epith Cells Amorphous Sediment Urine Bacteria Urine Mucus POC Glucose 345 H 273 H Micro: Microbiology 03/03/21 23:10 Stool Stool Lactoferrin - Final 03/03/21 23:10 Stool Enteric Bacteriology - Final 03/03/21 23:10 Stool C. difficile DNA Amplification - Final 03/03/21 19:55 Mucosa - Nasopharyngeal Influenza Types A,B Direct FA (MIKE) - Final 03/03/21 19:55 Mucosa - Nasopharyngeal SARS-CoV-2 Antigen (Rapid) - Final Radiography Diagnostic Testing: Radiology Impression Chest X-Ray 03/03/21 19:57 IMPRESSION: No acute pulmonary process Electronically Signed: Garrick Lopez MD at 20:23 EDT , Service support , Abdomen/Pelvis CT 03/03/21 20:30 IMPRESSION: No suspicious solid organ abnormality No CT evidence of an acute inflammatory process No free intraperitoneal fluid, air, or suspicious adenopathy Uterus is still present, the endometrium cannot be accurately evaluated with CT. Degenerative bony changes Electronically Signed: Garrick Lopez MD at 21:12 EDT , Service support , Physical Exam Const alert Resp normal respiratory effort, no use of accessory muscles and clear to auscultation bilaterally Cardio regular rate, regular rhythm, S1 normal heart sound and S2 normal heart sound GI normal to inspection, nondistended, normoactive bowel sounds, non-tender and non-distended Extremity normal to inspection Neuro Sensorium / Orientation: awake Assessment & Plan Assessment/Plan (1) [id number] kidney injury: QUALIFIERS: Acute renal failure type: unspecified Chronic kidney disease stage: stage 3 (moderate) Chronic kidney disease stage 3 subtype: stage 3a (GFR 45-59) Qualified Code(s): N17.9 - Acute kidney failure, unspecified; N18.31 - Chronic kidney disease, stage 3a (2) Gastroenteritis: (3) Sepsis: QUALIFIERS: Sepsis type: sepsis due to unspecified organism Sepsis acute organ dysfunction status: with acute organ dysfunction Severe sepsis acute organ dysfunction type: acute renal failure Acute renal failure type: unspecified Severe sepsis shock status: without septic shock Qualified Code(s): A41.9 - Sepsis, unspecified organism; R65.20 - Severe sepsis without septic shock; N17.9 - Acute kidney failure, unspecified PLAN: 1. Gastroenteritis * versus gastroparesis * Admit to [facility] with telemetry * Influenza and Covid, C.diff, enteric pathogens, fecal leuks negative * Continue IV hydration at 100 ml/hour 2. SIRS * sepsis ruled out as of now given no clear source of infection yet to be identified * 2/2 above * resolved 3. Acute on chronic kidney injury stage IIIa * Improved * Baseline creatinine 1.28 * Continue IV hydration at 100ml/hour 4. 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 Essential hypertension * Patient placed on cardiac heart healthy diet along with consistent carb calorie controlled * Continue metoprolol, isosorbide. Will hold losartan at this time 6. Hyperlipidemia * Continue atorvastatin 7. Charcot's joint of left foot * Patient was recently at podiatry office on 02/[address] Cuevas where she noted no infection however due to patient's elevated white blood cell count will consult wound nurse to assess. 8. VTE prophylaxis-SQ heparin Visit Charges Inpatient E&M: 36268 Subs Hosp L2
--- NOTE | 2021-03-04 16:35 | VDLE_ITS ---
Reason For Study: pain RIGHT GSV is normal. CFV is compressible, spontaneous, phasic, competent and demonstrates normal augmentation. FV is compressible, spontaneous, phasic, competent and demonstrates normal augmentation. POP V is compressible, spontaneous, phasic, competent and demonstrates normal augmentation. T/P Trunk is compressible. PTV is compressible. RT PerV is compressible. Heterogeneous area in right groin measuring 1.26 x 4.05 cm. Vascular flow is noted. Procedure This is a venous duplex using B-mode, color flow and spectral Doppler. Exam performed portable in patient room. The exam was abbreviated due to the COVID 19 protocol. The exam was diagnostic. A preliminary report was called and/or faxed to [facility] charge master coordinator. VL/Venous Duplex US, Unilateral Interpretation Summary There is no evidence of right lower extremity deep vein thrombosis. Right great saphenous vein appears patent and compressible segmentally. Right groin 1.26 x 4.05 cm structu re consistent with a lymph node. Clinical correlation would be appropriate. COVID-19 protocol utilized Ordering Physician: Kali Prado Performed By: Reginald Garcia RVT
[2021-03-04 17:26] LABS: Bedside Glucose 136 mg/dL (70-110)
--- NOTE | 2021-03-04 17:38 | CON.PCM_ITS ---
Assessment & Plan Assessment/Plan (1) Charcot's joint of right foot: (2) Non-pressure chronic ulcer of other part of left foot with fat layer exposed : (3) Sepsis: QUALIFIERS: Sepsis type: sepsis due to unspecified organism Sepsis acute organ dysfunction status: with acute organ dysfunction Severe sepsis acute organ dysfunction type: acute renal failure Acute renal failure type: unspecified Severe sepsis shock status: without septic shock Qualified Code(s): A41.9 - Sepsis, unspecified organism; R65.20 - Severe sepsis without septic shock; N17.9 - Acute kidney failure, unspecified (4) Prahq-bk-[id number] kidney injury: QUALIFIERS: Acute renal failure type: unspecified Chronic kidney disease stage: stage 3 (moderate) Chronic kidney disease stage 3 subtype: stage 3a (GFR 45-59) Qualified Code(s): N17.9 - Acute kidney failure, unspecified; N18.31 - Chronic kidney disease, stage 3a (5) Gastroenteritis: (6) Delayed wound healing: (7) Amputation foot, bilat: (8) Charcot's joint of left foot: (9) Type 2 diabetes mellitus with diabetic polyneuropathy: QUALIFIERS: Diabetes mellitus assisted insulin use: with assisted use Qualified Code(s): E11.42 - Type 2 diabetes mellitus with diabetic polyneuropathy; Z79.4 - assisted (current) use of insulin PLAN: Patient seen and examined bedside Patient noted to be significantly more agitated and distressed compared to her normal affect. Patient is noted to have canceled her appointment with me at the wound care center on 03/03/2021 due to not feeling well. Patient noted to have a total contact cast to left foot for treating of chronic plantar left foot ulceration. Patient noted to have slow wound healing. Total contact cast is still in place at this time. Will remove tomorrow when able to obtain cast cutters. Will assess wound for any signs of infection. There was no signs of infection at last visitation on 02/24/2021. She has been undergoing skin grafts. Patient also known to have bilateral Charcot foot deformities. There is concern for acute Charcot event to the right foot. There is significant increase in edema and temperature to the right foot compared to her baseline. Patient had complained of right foot pain several weeks ago. A prescription for an x-ray was given to the patient at that time for further work-up. Patient never filled the x-ray prescription. She related that the pain had resolved at that time. Is unsure if this is related to current event. There is no erythema noted at the right foot at this time. I recommend getting x-rays to start with and possibly an MRI as well to assess for any underlying osteomyelitis or septic joints versus Charcot. There is no erythema noted to foot just swelling and increased temperature at this time Patient noted to have a temperature of 100.8 with an elevated white blood cell count of 14 Patient is less hemoglobin A1c on 12/29/2020 was 13.1 patient noted to have very poor blood glucose control and can range anywhere from around 60 to over 500 Due to concern for acute Charcot event to the right foot I recommend nonweightbearing to her right foot at this time. Discussed this with the patient. Discussed that any weightbearing can further exacerbate Charcot foot deformity We will follow imaging results Continue antibiotics All questions answered Podiatry will continue to follow Thank you for the consult please contact if any questions or concerns Joana Cuevas DPM [facility] [phone] This note was generated with prollie dictation software. It may contain incorrect words, spelling, and punctuation that were not noted in checking the note before signing. HPI Consult Data Date of Consult: 03/04/21 HPI Narrative HPI Narrative: DIONY ROCHA, is a 55 F who presents with fevers chills nausea and vomiting. Patient noted to have wound to left plantar foot chronically. Patient is a male wound care center for treatment of this. Patient missed her appointment on Tuesday. She canceled due to not feeling well. Patient has significant medical history. Patient has history of Charcot foot deformities. Patient has history of amputations. Patient admits to pain in her right foot with swelling. She noted to have a cracked total contact cast to her left foot. Patient relates being more active in the last week needing to do laundry up and down the stairs. Patient relates fall without injury. [facility] Medical History (Updated 03/04/21 @ 17:[address] Joana Cuevas DPM) Acquired varus deformity of left foot Acquired varus deformity of right foot Anemia Anxiety Anxiety and depression Atherosclerosis of [place] coronary artery of [place] heart without angina pectoris Back pain, chronic Chronic renal insufficiency Chronic ulcer of left foot with fat layer exposed Coronary artery disease Delayed wound healing Depression Diabetes Diabetic foot ulcer associated with type 2 diabetes mellitus Diabetic infection of left foot Diabetic polyneuropathy Diabetic ulcer of right ankle Essential (primary) hypertension GERD (gastroesophageal reflux disease) Hemoglobin A1c greater than 9.0% HLD (hyperlipidemia) Hypertension Ischemic cardiomyopathy Myocardial infarct Non-compliance Non-smoker Normocytic anemia NSTEMI (non-ST elevated myocardial infarction) (09/20/18) Obesity (BMI 30.0-34.9) Osteomyelitis of left foot RLS (restless legs syndrome) TIA (transient ischemic attack) Type 2 diabetes mellitus with diabetic polyneuropathy Ulcer of left foot with muscle involvement without evidence of necrosis Ulcer of right lower extremity with fat layer exposed Home Medications atorvastatin 80 mg tablet 80 mg PO QHS #90 tablet 11/30/19 [Rx Last Taken 03/02/21 22:00] insulin lispro 20 unit SC TIDCM 08/31/20 [History Last Taken 11/14/20 09:00] paroxetine HCl 40 mg PO QHS 09/12/20 [History Last Taken 11/13/20 21:00] polysaccharide iron complex 150 mg PO DAILYCM 09/12/20 [History Last Taken 03/02/21 22:00] pramipexole 1.5 mg PO BID 09/12/20 [History Last Taken 03/02/21 22:00] aspirin 81 mg PO DAILY@0800 tab.chew 11/15/20 [Rx Last Taken 03/02/21 22:00] clopidogrel 75 mg PO DAILY #0 tablet 01/01/21 [Rx Last Taken 03/02/21 22:00] gabapentin 300 mg capsule 900 mg PO TID cap 01/20/21 [History Last Taken 03/02/21 22:00] insulin glargine 100 unit/mL (3 mL) subcutaneous pen 30 unit SC DAILY ml 01/20/21 [History Last Taken Unknown] nitroglycerin 0.4 mg sublingual tablet 0.4 mg SL Q5-15M PRN #25 tablet 01/20/21 [Rx Last Taken Unknown] isosorbide mononitrate 30 mg PO DAILY 03/03/21 [History Last Taken 03/02/21 22:00] Allergy/AdvReac Type Severity Reaction Status Date / Time Penicillins Allergy swelling Verified 03/03/21 22:43 in throat vancomycin Allergy Itching Verified 03/03/21 19:31 metronidazole AdvReac Nausea Verified 03/03/21 19:31 OXYCONTIN Allergy Shortness Uncoded 01/20/21 11:29 of breath Family History Mother Diabetes CVA (cerebral vascular accident) Brother CAD (coronary artery disease) CABG X 3 Cancer testicular Diabetes Brother CAD (coronary artery disease) CABG X3 Diabetes Brother CAD (coronary artery disease) Stents Diabetes Sister CAD (coronary artery disease) CABG x 3 CVA (cerebral vascular accident) Diabetes Surgical History History of bilateral carpal tunnel release History of History of coronary artery stent placement (12/31/20) History of foot surgery History of rotator cuff surgery Social History Smoking Status: Never smoker alcohol intake: never substance use type: does not use caffeine: Yes Type: carbonated beverages Number of servings: 2 ROS Constitutional Constitutional: Reports chills and fever(s) Cardiovascular Cardiovascular: Reports numbness in extremities, pedal edema and vomiting Gastrointestinal Gastrointestinal: Reports diarrhea Musculoskeletal Musculoskeletal: Reports joint pain Integumentary Integumentary: Reports wounds Neurologic Neurologic: Reports numbness, paresthesias and tingling Physical Exam Const alert General Appearance: cooperative HEENT Head and Scalp: atraumatic Extremity normal capillary refill and no calf tenderness General Extremity: edema bilateral lower extremity, no tenderness to palpation of joints or extremities and other findings Other Details: Capillary refill time less than 3 seconds noted to digits ; Negative for clubbing or cyanosis Peripheral Pulses: Yes posterior tibial pulses present bilateral 2+ and dorsalis pedis pulses present bilateral 2+ Skin General Skin Exam: atrophy and dry skin; Negative for ecchymosis, erythema, eschar, pallor or dermatitis Rashes: no rashes Wounds: wounds noted Wound Narrative: Patient known to have wound to left plantar foot underneath the total contact cast. There is noted breakage of the total contact cast. Plan to remove total contact cast tomorrow. Right foot noted to have significant increase in edema, calor since previous exam on 02/24/2021. There is pain to palpation of movement of this joint. Muscle strength is diminished but intact. 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 Charcot foot deformity noted bilaterally. Neuro Sensory Exam: extremities light-touch: decreased Motor Exam: strength abnormal other (4/5 to all pedal muscle groups) Psych Appearance: appropriate Lab / Micro Data Result Diagrams: 03/04/21 05:54 03/04/21 05:54 Labs: Laboratory Results - last 24 hr 03/03/21 03/03/21 03/03/21 19:55 19:55 19:55 WBC 19.5 H RBC 3.29 L Hgb 9.4 L Hct 29.5 L MCV 89.7 MCH 28.6 MCHC 31.9 L RDW Std Deviation 44.7 H RDW Coeff of Fior 13.6 Plt Count 260 MPV 11.5 Immature Gran % (Auto) 1.000 H Neut % (Auto) 91.6 H Lymph % (Auto) 3.4 L [place] % (Auto) 3.6 Eos % (Auto) 0.2 Baso % (Auto) 0.2 Absolute Neuts (auto) 17.8 H Absolute Lymphs (auto) 0.67 L Nucleated RBC % 0 PT 15.8 H INR 1.3 APTT 35.2 Sodium 134 L Potassium 4.1 Chloride 103 Carbon Dioxide 23.0 Anion Gap 8 BUN 41 H Creatinine 1.92 H Estim Creat Clear Calc 30.99 Est GFR (MDRD) Af Amer 35 L Est GFR (MDRD) Non-Af 29 L BUN/Creatinine Ratio 21.4 H Glucose 400 H Lactic Acid Calcium 8.6 Total Bilirubin 0.70 AST 20 ALT 22 Alkaline Phosphatase 132 H Total Protein 6.8 Albumin 2.4 L Globulin 4.4 H Albumin/Globulin Ratio 0.5 L Lipase Urine Color Urine Clarity Urine pH Ur Specific [place] Urine Protein Urine Glucose (UA) Urine Ketones Urine Occult Blood Urine Nitrite Urine Bilirubin Urine Urobilinogen Ur Leukocyte Esterase Urine RBC Urine WBC Ur Squamous Epith Cells Amorphous Sediment Urine Bacteria Urine Mucus POC Glucose 03/03/21 03/03/21 03/03/21 19:55 19:55 20:30 WBC RBC Hgb Hct MCV MCH MCHC RDW Std Deviation RDW Coeff of Fior Plt Count MPV Immature Gran % (Auto) Neut % (Auto) Lymph % (Auto) [place] % (Auto) Eos % (Auto) Baso % (Auto) Absolute Neuts (auto) Absolute Lymphs (auto) Nucleated RBC % PT INR APTT Sodium Potassium Chloride Carbon Dioxide Anion Gap BUN Creatinine Estim Creat Clear Calc Est GFR (MDRD) Af Amer Est GFR (MDRD) Non-Af BUN/Creatinine Ratio Glucose Lactic Acid 1.2 Calcium Total Bilirubin AST ALT Alkaline Phosphatase Total Protein Albumin Globulin Albumin/Globulin Ratio Lipase 129 Urine Color Yellow Urine Clarity Clear Urine pH 5.0 Ur Specific [place] 1.030 Urine Protein 500 H Urine Glucose (UA) 1000 H Urine Ketones 5 H Urine Occult Blood 25 H Urine Nitrite Negative Urine Bilirubin Negative Urine Urobilinogen Normal Ur Leukocyte Esterase 25 H Urine RBC 0 SEEN Urine WBC 0-5 SEEN Ur Squamous Epith Cells 0-5 SEEN Amorphous Sediment 1+ Urine Bacteria 1+ Urine Mucus 1+ POC Glucose 03/04/21 03/04/21 03/04/21 00:15 05:54 05:54 WBC 14.0 H RBC 2.74 L Hgb 7.9 L Hct 24.5 L MCV 89.4 MCH 28.8 MCHC 32.2 RDW Std Deviation 45.0 H RDW Coeff of Fior 13.7 Plt Count 185 MPV 10.8 Immature Gran % (Auto) 0.600 Neut % (Auto) 87.0 H Lymph % (Auto) 6.8 L [place] % (Auto) 4.8 Eos % (Auto) 0.6 Baso % (Auto) 0.2 Absolute Neuts (auto) 12.2 H Absolute Lymphs (auto) 0.95 Nucleated RBC % 0 PT INR APTT Sodium 136 Potassium 3.9 Chloride 107 Carbon Dioxide 22.0 Anion Gap 7 BUN 40 H Creatinine 1.73 H Estim Creat Clear Calc 34.40 Est GFR (MDRD) Af Amer 39 L Est GFR (MDRD) Non-Af 32 L BUN/Creatinine Ratio 23.1 H Glucose 379 H Lactic Acid Calcium 7.7 L Total Bilirubin 0.30 AST 15 ALT 17 Alkaline Phosphatase 106 Total Protein 5.5 L Albumin 1.8 L Globulin 3.7 Albumin/Globulin Ratio 0.5 L Lipase Urine Color Urine Clarity Urine pH Ur Specific [place] Urine Protein Urine Glucose (UA) Urine Ketones Urine Occult Blood Urine Nitrite Urine Bilirubin Urine Urobilinogen Ur Leukocyte Esterase Urine RBC Urine WBC Ur Squamous Epith Cells Amorphous Sediment Urine Bacteria Urine Mucus POC Glucose 310 H 03/04/21 03/04/21 03/04/21 08:37 11:51 17:07 WBC RBC Hgb Hct MCV MCH MCHC RDW Std Deviation RDW Coeff of Fior Plt Count MPV Immature Gran % (Auto) Neut % (Auto) Lymph % (Auto) [place] % (Auto) Eos % (Auto) Baso % (Auto) Absolute Neuts (auto) Absolute Lymphs (auto) Nucleated RBC % PT INR APTT Sodium Potassium Chloride Carbon Dioxide Anion Gap BUN Creatinine Estim Creat Clear Calc Est GFR (MDRD) Af Amer Est GFR (MDRD) Non-Af BUN/Creatinine Ratio Glucose Lactic Acid Calcium Total Bilirubin AST ALT Alkaline Phosphatase Total Protein Albumin Globulin Albumin/Globulin Ratio Lipase Urine Color Urine Clarity Urine pH Ur Specific [place] Urine Protein Urine Glucose (UA) Urine Ketones Urine Occult Blood Urine Nitrite Urine Bilirubin Urine Urobilinogen Ur Leukocyte Esterase Urine RBC Urine WBC Ur Squamous Epith Cells Amorphous Sediment Urine Bacteria Urine Mucus POC Glucose 345 H 273 H 136 H Micro: Microbiology 03/03/21 23:10 Stool Lactoferrin - Final Stool Enteric Bacteriology - Final C. difficile DNA Amplification - Final 03/03/21 19:55 Influenza Types A,B Direct FA (MIKE) - Final Mucosa - Nasopharyngeal 03/03/21 19:55 SARS-CoV-2 Antigen (Rapid) - Final Mucosa - Nasopharyngeal Radiology Impression Chest X-Ray 03/03/21 19:57 IMPRESSION: No acute pulmonary process Electronically Signed: Garrick Lopez MD at 20:23 EDT , Service support , Abdomen/Pelvis CT 03/03/21 20:30 IMPRESSION: No suspicious solid organ abnormality No CT evidence of an acute inflammatory process No free intraperitoneal fluid, air, or suspicious adenopathy Uterus is still present, the endometrium cannot be accurately evaluated with CT. Degenerative bony changes Electronically Signed: Garrick Lopez MD at 21:12 EDT , Service support ,
--- NOTE | 2021-03-04 17:59 | MRI_ITS ---
STUDY: MRI RIGHT MIDFOOT REASON FOR EXAM: Right foot infection, Charcot foot, evaluate for septic midfoot. TECHNIQUE: Standardized fat and water weighted pulse sequences were obtained in all 3 orthogonal planes. COMPARISON: Radiographs 03/04/2021 and MRI images 09/01/2020. FINDINGS: Although there is image degradation secondary to patient motion, there is still significant diagnostically useful information available from this examination. Normal talonavicular articulation. There is interval development of cystic change of the proximal cuboid at the calcaneocuboid articulation (T1 sagittal image 14). There is increased arthropathy of the navicular-cuneiform articulations and intercuneiform articulations since the prior study with increased fragmentation (T1 sagittal images 5-14) with bone edema at the navicular-cuneiform articulations (inversion recovery sagittal images 6-9), similar to the prior study and therefore more suggestive of increasing neuropathic osteoarthropathy rather than osteomyelitis. Normal first tarsometatarsal articulation. Normal Lisfranc ligament. There is arthropathy of the second through fifth tarsometatarsal articulations with bone edema unchanged at the second tarsometatarsal articulation (inversion recovery sagittal image 11) and at the third tarsometatarsal articulation (inversion recovery sagittal image 15). There is interval development of slight bone edema adjacent to the fourth tarsometatarsal articulation (inversion recovery sagittal image 19). There is no demonstrated bone edema adjacent to the fifth tarsometatarsal articulation. There is amputation of the fifth metatarsophalangeal level the proximal diaphysis without interval development of bone edema of the remaining fifth metatarsal. There is a small volume of fluid in the distal peroneal tendon sheath (inversion recovery sagittal images 17, 18). There is fat replacement of the intrinsic muscles of the foot consistent with peripheral neuropathy as on the prior study. There is a fluid collection at the plantar aspect of the fifth metatarsal (inversion recovery sagittal images 22-24) measuring 1.7 x 2.4 cm (transverse x length) suggestive of abscess. There is edema in the subcutis adipose space. MRI/Lower Ext/No Jt/w/o IMPRESSION: Increased arthropathy of the midfoot and second through fifth tarsometatarsal articulations, more suggestive of increasing neuropathic osteoarthropathy rather than septic arthritis. Soft tissue abscess plantar to the fifth metatarsal without interval development of bone edema of the partially amputated fifth metatarsal. Mild distal peroneal tenosynovitis. Atrophy of the intrinsic muscles of the foot consistent with peripheral neuropathy. Electronically Signed: Saqib Roberts MD at 9:59 EDT Tel , Service support ,
--- NOTE | 2021-03-04 20:27 | RAD_ITS ---
STUDY: X-RAY - RIGHT FOOT CLINICAL: Female, 55 years old.DIABETIC. SWELLING ON PLANTAR SURFACE AT PROXIMAL 3RD-5TH METACARPALS. ALSO CLOSED WOUND NEAR LATERAL MALLEOLUS ACUTE CHARCOT FOOT VS INFECTION TECHNIQUE: 4 view(s) of the foot. COMPARISON: None. FINDINGS: Prior amputation of the distal half of the fifth metatarsal bone and all of the fifth phalanges. Moderate cortical thickening is present in the proximal and mid shaft of the fourth metatarsal bone. Intraosseous cystic erosions throughout the tarsal bones and TMT articulations are compatible with sequela of Charcot arthropathy and secondary degenerative change. There is mild widening of the Lisfranc articulation. No visualized acute fracture. No evidence of active osteomyelitis. Normal visualized subtalar, talonavicular, calcaneocuboid, tarsal and tarsometatarsal articulations. Marked soft tissue swelling is present over the dorsum of the foot. A bulky osteophyte or loose body is seen on the dorsum and anterior aspect of the navicular bone. Small square radiopaque density seen beneath the fifth metatarsal bone could represent a foreign body if not surgically intentional. RAD/Foot min 3 Views IMPRESSION: 1. Marked soft tissue swelling is present over the dorsum of the foot. A bulky osteophyte or loose body is seen on the dorsum and anterior aspect of the navicular bone. 2. Small square radiopaque density seen beneath the fifth metatarsal bone could represent a foreign body if not surgically intentional. 3. Arthropathy Electronically Signed: Noel De Jesus MD at 22:47 EDT , Service support ,
--- NOTE | 2021-03-04 20:27 | RAD_ITS ---
STUDY: X-RAY - LEFT FOOT CLINICAL: Female, 55 years old. ulcer TECHNIQUE: 3 view(s) of the foot. COMPARISON: Left foot x-ray dated August 31, 2020 FINDINGS: Bandage material or splint is present around the left foot slightly limiting visualization of the underlying structures. Mild cystic lucencies and erosions are present in the tarsal bones and at several metatarsal bases compatible with sequela of developing Charcot arthropathy. The remaining bony structures are unremarkable. Small triangular-shaped ossicle or radiopaque density projecting near the lateral sesamoid noted which was not seen on the prior study. Stable amputation fragment of the fifth metatarsal base. Prior amputation of the fifth digit phalanges. Small to moderate size 2.30 cm open wound/ulcer on the plantar aspect of the foot appears to be near the fourth and fifth metatarsal bases. Moderate thickening of the cortex of the fourth metatarsal bone is likely related to previous infection or previous trauma. No cortical erosion or bony destruction is seen to suggest active infection. Mild soft tissue swelling is present around the foot. RAD/Foot min 3 Views IMPRESSION: 1. Small to moderate size 2.30 cm open wound/ulcer on the plantar aspect of the foot appears to be near the fourth and fifth metatarsal bases. 2. Moderate thickening of the cortex of the fourth metatarsal bone is likely related to previous infection or previous trauma. No cortical erosion or bony destruction is seen to suggest active infection. Electronically Signed: Noel De Jesus MD at 22:58 EDT , Service support ,
[2021-03-04] MEDS: 0.9% Saline Lock 10 ML Syringe IV (20:45)
[2021-03-04] MEDS: Paroxetine 20 MG Tablet 40 MG PO (21:54)
[2021-03-04 22:15] LABS: Bedside Glucose 192 mg/dL (70-110)
[2021-03-04] MEDS: Ondansetron 4 MG/2 ML Vial IV (23:16)
[2021-03-05] VITALS (12 sets, daily range): BP systolic 129–174; BP diastolic 69–108; PULSE 64–110; RESP 14–22; TEMP 36.4–37.2; O2SAT 93–98
[2021-03-05] MEDS: Acetaminophen 325 MG Tablet 650 MG PO ×4 (00:49→23:06)
[2021-03-05] MEDS: Zolpidem Tartrate 5 MG Tablet PO ×2 (00:49→23:08)
[2021-03-05] MEDS: Gabapentin 300 MG Capsule 900 MG PO ×3 (06:24→21:18)
[2021-03-05 06:49] LABS: Absolute Lymphocyte Count 1.23 X10^3/uL (0.83-4.51); Basophil# 0.04 X10^3/uL; Basophil% 0.3 % (0-1); Eosinophil# 0.21 X10^3/uL; Eosinophils% 1.5 % (0-5); Hematocrit 28.4 % (37-47); Hemoglobin 8.9 g/dL (12.0-15.0); Lymphocyte # 1.23 X10^3/ul (0.83-4.51); Lymphocyte % 8.6 % (19-41); Mean Corp Hgb Conc 31.3 g/dL (32-36); Mean Corpuscular Hgb 28.9 pg (27.0-32.0); Mean Corpuscular Volume 92.2 fL (81-99); Mean Platelet Vol. 11.3 fl (6.2-12.0); Monocyte% 4.9 % (0-10); NRBC Flagged by Analyzer 0 % (0-5); Neutrophil # 12.04 X10^3/uL (2.7-7.7); Neutrophil % 84.1 % (47-70); Platelet Count 287 K/mm3 (150-450); RBC Distribution Width CV 13.7 % (11.6-14.6); RBC Distribution Width SD 46.1 fl (35.1-43.9); Red Blood Count 3.08 M/mm3 (4.2-5.4); White Blood Count 14.3 K/mm3 (4.4-11.0)
[2021-03-05 06:52] LABS: Anion Gap 6 (5-15); BUN 45 mg/dL (7-18); BUN/Creat Ratio 28.3 RATIO (10-20); Calcium,Total 7.9 mg/dL (8.5-10.1); Chloride 112 mmol/L (98-107); Creatinine, Serum 1.59 mg/dL (0.55-1.02); EST Glomerular Filtration Rate 36 mL/min (>60); Est Glom Filt Rate - Afr Amer 43 mL/min (>60); Estimated Creatinine Clearance 37.43 ml/min; Glucose 234 mg/dL (74-106); Potassium 4.2 mmol/L (3.5-5.1); Sodium Level 139 mmol/L (136-145)
[2021-03-05 06:54] LABS: Erythrocyte Sedimentation Rate 42 mm/hr (0-30)
[2021-03-05] MEDS: 0.9% Normal Saline 1,000 ML 100 ML IV ×2 (08:23→20:12)
[2021-03-05] MEDS: Aspirin 81 MG TAB.CHEW PO (08:23)
[2021-03-05] MEDS: Iron Polysaccharide Complex 150 MG CAPSULE PO (08:23)
[2021-03-05 08:25] LABS: Bedside Glucose 239 mg/dL (70-110)
--- NOTE | 2021-03-05 08:38 | PCM.PROGNOTE ---
Subjective Subjective feeling.Patient seen and examined resting comfortably. Patient denies any new pedal complaints. Patient denies any nausea, fever, chills, chest pain, shortness of breath, cough, streaking, purulence, vomiting.She relates overall better She also looks much better than when I saw her yesterday. Objective Data Objective Data Vital Signs: Vital Signs Temp Pulse Resp BP Pulse Ox 98.1 F 90 22 H 146/69 H 98 03/05/21 08:12 03/05/21 08:12 03/05/21 08:12 03/05/21 08:12 03/05/21 08:12 Oxygen Delivery Method Room Air Weight: 88 kg Body Mass Index (BMI) 31.3 Intake & Output: Intake and Output for Last 24 Hours 03/03/21 03/04/21 03/05/21 23:59 23:59 23:59 Intake Total 1000 / 1000 3255.00 / 3505.00 1368.33 / 1368.33 Output Total 300 / 950 1250 / 1250 Balance 1000 / 1000 2955.00 / 2555.00 118.33 / 118.33 Lab / Micro Data Result Diagrams: 03/05/21 06:40 03/05/21 05:50 Labs: Laboratory Results - last 24 hr 03/04/21 03/04/21 03/04/21 05:54 08:37 11:51 WBC Corrected WBC RBC Hgb Hct MCV MCH MCHC RDW Std Deviation RDW Coeff of Fior Plt Count MPV Immature Gran % (Auto) Neut % (Auto) Lymph % (Auto) Frio % (Auto) Eos % (Auto) Baso % (Auto) Absolute Neuts (auto) Absolute Lymphs (auto) Total Counted Neutrophils % (Manual) Band Neutrophils % Lymphocytes % (Manual) Monocytes % (Manual) Eosinophils % (Manual) Basophils % (Manual) Metamyelocytes % Myelocytes % Promyelocytes % Blast Cells % Plasma Cell % (Manual) Other Cells % Nucleated RBC % Nucleated RBCs/100 WBC Differential Comment Diff Path Review Hypersegmented Neuts Atypical Lymphocytes Reactive Lymphocytes Smudge Cells Toxic Granulation Toxic Vacuolation Dohle Bodies Latesha Rods Platelet Estimate Plt Morphology Comment RBC Morphology Polychromasia Hypochromasia Poikilocytosis Basophilic Stippling Anisocytosis Microcytosis Macrocytosis Spherocytes Sickle Cells Target Cells Tear Drop Cells Ovalocytes Stomatocytes [place] Bodies [place] Cells Bite Cells Crenated Cell Acanthocytes (Spur) Rouleaux Schistocytes ESR Sodium Potassium Chloride Carbon Dioxide Anion Gap BUN Creatinine Estim Creat Clear Calc Est GFR (MDRD) Af Amer Est GFR (MDRD) Non-Af BUN/Creatinine Ratio Glucose Calcium C-React Prot Ext Range 187.00 H POC Glucose 345 H 273 H 03/04/21 03/04/21 03/05/21 17:07 21:45 05:50 WBC Cancelled Corrected WBC Cancelled RBC Cancelled Hgb Cancelled Hct Cancelled MCV Cancelled MCH Cancelled MCHC Cancelled RDW Std Deviation Cancelled RDW Coeff of Fior Cancelled Plt Count Cancelled MPV Cancelled Immature Gran % (Auto) Cancelled Neut % (Auto) Cancelled Lymph % (Auto) Cancelled Frio % (Auto) Cancelled Eos % (Auto) Cancelled Baso % (Auto) Cancelled Absolute Neuts (auto) Cancelled Absolute Lymphs (auto) Cancelled Total Counted Cancelled Neutrophils % (Manual) Cancelled Band Neutrophils % Cancelled Lymphocytes % (Manual) Cancelled Monocytes % (Manual) Cancelled Eosinophils % (Manual) Cancelled Basophils % (Manual) Cancelled Metamyelocytes % Cancelled Myelocytes % Cancelled Promyelocytes % Cancelled Blast Cells % Cancelled Plasma Cell % (Manual) Cancelled Other Cells % Cancelled Nucleated RBC % Cancelled Nucleated RBCs/100 WBC Cancelled Differential Comment Cancelled Diff Path Review Cancelled Hypersegmented Neuts Cancelled Atypical Lymphocytes Cancelled Reactive Lymphocytes Cancelled Smudge Cells Cancelled Toxic Granulation Cancelled Toxic Vacuolation Cancelled Dohle Bodies Cancelled Latesha Rods Cancelled Platelet Estimate Cancelled Plt Morphology Comment Cancelled RBC Morphology Cancelled Polychromasia Cancelled Hypochromasia Cancelled Poikilocytosis Cancelled Basophilic Stippling Cancelled Anisocytosis Cancelled Microcytosis Cancelled Macrocytosis Cancelled Spherocytes Cancelled Sickle Cells Cancelled Target Cells Cancelled Tear Drop Cells Cancelled Ovalocytes Cancelled Stomatocytes Cancelled [place] Bodies Cancelled Jaci Cells Cancelled Bite Cells Cancelled Crenated Cell Cancelled Acanthocytes (Spur) Cancelled Rouleaux Cancelled Schistocytes Cancelled ESR Cancelled Sodium Potassium Chloride Carbon Dioxide Anion Gap BUN Creatinine Estim Creat Clear Calc Est GFR (MDRD) Af Amer Est GFR (MDRD) Non-Af BUN/Creatinine Ratio Glucose Calcium C-React Prot Ext Range POC Glucose 136 H 192 H 03/05/21 03/05/21 03/05/21 05:50 06:40 08:06 WBC 14.3 H Corrected WBC RBC 3.08 L Hgb 8.9 L Hct 28.4 L MCV 92.2 MCH 28.9 MCHC 31.3 L RDW Std Deviation 46.1 H RDW Coeff of Fior 13.7 Plt Count 287 MPV 11.3 Immature Gran % (Auto) 0.600 Neut % (Auto) 84.1 H Lymph % (Auto) 8.6 L Frio % (Auto) 4.9 Eos % (Auto) 1.5 Baso % (Auto) 0.3 Absolute Neuts (auto) 12.0 H Absolute Lymphs (auto) 1.23 Total Counted Neutrophils % (Manual) Band Neutrophils % Lymphocytes % (Manual) Monocytes % (Manual) Eosinophils % (Manual) Basophils % (Manual) Metamyelocytes % Myelocytes % Promyelocytes % Blast Cells % Plasma Cell % (Manual) Other Cells % Nucleated RBC % 0 Nucleated RBCs/100 WBC Differential Comment Diff Path Review Hypersegmented Neuts Atypical Lymphocytes Reactive Lymphocytes Smudge Cells Toxic Granulation Toxic Vacuolation Dohle Bodies Latesha Rods Platelet Estimate Plt Morphology Comment RBC Morphology Polychromasia Hypochromasia Poikilocytosis Basophilic Stippling Anisocytosis Microcytosis Macrocytosis Spherocytes Sickle Cells Target Cells Tear Drop Cells Ovalocytes Stomatocytes [place] Bodies Jaci Cells Bite Cells Crenated Cell Acanthocytes (Spur) Rouleaux Schistocytes ESR 42 H Sodium 139 Potassium 4.2 Chloride 112 H Carbon Dioxide 21.0 Anion Gap 6 BUN 45 H Creatinine 1.59 H Estim Creat Clear Calc 37.43 Est GFR (MDRD) Af Amer 43 L Est GFR (MDRD) Non-Af 36 L BUN/Creatinine Ratio 28.3 H Glucose 234 H Calcium 7.9 L C-React Prot Ext Range POC Glucose 239 H Micro: Microbiology 03/03/21 23:10 Stool Stool Lactoferrin - Final 03/03/21 23:10 Stool Enteric Bacteriology - Final 03/03/21 23:10 Stool C. difficile DNA Amplification - Final 03/03/21 19:55 Mucosa - Nasopharyngeal Influenza Types A,B Direct FA (MIKE) - Final 03/03/21 19:55 Mucosa - Nasopharyngeal SARS-CoV-2 Antigen (Rapid) - Final Radiography Diagnostic Testing: Radiology Impression Foot X-Ray 03/04/21 20:27 IMPRESSION: 1. Small to moderate size 2.30 cm open wound/ulcer on the plantar aspect of the foot appears to be near the fourth and fifth metatarsal bases. 2. Moderate thickening of the cortex of the fourth metatarsal bone is likely related to previous infection or previous trauma. No cortical erosion or bony destruction is seen to suggest active infection. Electronically Signed: Noel De Jesus MD at 22:58 EDT , Service support , Foot X-Ray 03/04/21 20:27 IMPRESSION: 1. Marked soft tissue swelling is present over the dorsum of the foot. A bulky osteophyte or loose body is seen on the dorsum and anterior aspect of the navicular bone. 2. Small square radiopaque density seen beneath the fifth metatarsal bone could represent a foreign body if not surgically intentional. 3. Arthropathy Electronically Signed: Noel De Jesus MD at 22:47 EDT , Service support , Physical Exam Const alert General Appearance: cooperative Extremity normal capillary refill and no calf tenderness General Extremity: edema bilateral lower extremity, no tenderness to palpation of joints or extremities and other findings Other Details: Capillary refill time less than 3 seconds noted to digits ; Negative for clubbing or cyanosis Skin General Skin Exam: atrophy and dry skin; Negative for ecchymosis, erythema, eschar, pallor or dermatitis Rashes: no rashes Wounds: wounds noted Wound Narrative: Total contact cast was removed upon removal was noted that the plantar left foot ulceration is approximately the same as in appearance as it was at previous appointment. There is no erythema or edema or or malodor or purulence or other suggestion signs of infection. There is some maceration noted periwound mild. Right foot noted to have significant increase in edema, calor since previous exam on 02/24/2021. There is pain to palpation of movement of this joint. Muscle strength is diminished but intact. Patient is less tender today compared to previous examination. 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 Charcot foot deformity noted bilaterally. Neuro Sensory Exam: extremities light-touch: decreased Motor Exam: strength abnormal other (4/5 to all pedal muscle groups) Psych Appearance: appropriate Assessment & Plan Assessment/Plan (1) Charcot's joint of right foot: (2) Non-pressure chronic ulcer of other part of left foot with fat layer exposed: (3) Sepsis: QUALIFIERS: Acute renal failure type: unspecified Sepsis acute organ dysfunction status: with acute organ dysfunction Sepsis type: sepsis due to unspecified organism Severe sepsis acute organ dysfunction type: acute renal failure Severe sepsis shock status: without septic shock Qualified Code(s): A41.9 - Sepsis, unspecified organism; R65.20 - Severe sepsis without septic shock; N17.9 - Acute kidney failure, unspecified (4) [id number] kidney injury: QUALIFIERS: Acute renal failure type: unspecified Chronic kidney disease stage: stage 3 (moderate) Chronic kidney disease stage 3 subtype: stage 3a (GFR 45-59) Qualified Code(s): N17.9 - Acute kidney failure, unspecified; N18.31 - Chronic kidney disease, stage 3a (5) Gastroenteritis: (6) Delayed wound healing: (7) Amputation foot, bilat: (8) Charcot's joint of left foot: (9) Type 2 diabetes mellitus with diabetic polyneuropathy: QUALIFIERS: Diabetes mellitus retirement insulin use: with retirement use Qualified Code(s): E11.42 - Type 2 diabetes mellitus with diabetic polyneuropathy; Z79.4 - intermediate card tender (current) use of insulin PLAN: Patient seen and examined bedside Patient looks more like her normal affect today. Total contact cast was removed today without incident. Patient noted to have underlying left foot ulceration without significant change from previous visit. After verbal consent was obtained for fascia and sharply staying on the right was carried out of the left plantar foot ulceration. Sharp excisional nonselective debridement was carried out into the level of subcutaneous tissue with a curette with removal of all devitalized, slough, biofilm, and fibrous tissue. This was done without incidence. This was tolerated due to patient's neuropathy. Predebridement measurements were 2.6 x 1.8 x 0.6 cm and post debridement measurements were 2.7 x 1.9 x 0.6 cm. There is concern for acute Charcot event to the right foot. There is significant increase in edema and temperature to the right foot compared to her baseline. Examination is consistent with Charcot foot presentation. Discussed with patient the importance of nonweightbearing to this foot. Patient understands and is agreeable. X-rays were reviewed consistent with Charcot changes to the midfoot. Patient has history of Charcot event to this foot in the past. MRI was also reviewed also consistent with Charcot changes. Will await radiologist read on MRI for final results. Patient noted to still have leukocytosis. Upon discussion with hospitalist there is concern that this is from GI issues more so than foot infection. Also discussed possibility of getting bone biopsies to confirm Charcot diagnosis with hospitalist Dr. Prado reviewed. It was determined that these were not necessary. No podiatry surgical plans at this time. Patient is less hemoglobin A1c on 12/29/2020 was 13.1 patient noted to have very poor blood glucose control and can range anywhere from around 60 to over 500 Due to concern for acute Charcot event to the right foot I recommend nonweightbearing to her right foot at this time. Discussed this with the patient. Discussed that any weightbearing can further exacerbate Charcot foot deformity. With ulceration to left foot is also on advisable for patient to weight-bear on her left foot. Recommend patient be wheelchair-bound. If patient needs to pivot to transfer can put weight through heel on left foot. It is noted that ultrasound for patient was noted to be negative for DVTs. Continue daily dressing changes of left foot consists are still silver alginate, 4 x 4's, Kerlix, [place] wrap. Continue antibiotics All questions answered Podiatry will continue to follow Thank you for the consult please contact if any questions or concerns Joana Cuevas DPM [facility] [phone] This note was generated with [employer] dictation software. It may contain incorrect words, spelling, and punctuation that were not noted in checking the note before signing.
[2021-03-05] MEDS: Insulin Lispro 100 UNIT/ML INSULN.PEN 20 UNIT SC ×3 (09:31→18:10)
[2021-03-05] MEDS: Insulin Lispro 100 UNIT/ML INSULN.PEN SC ×4 (09:32→21:38)
[2021-03-05] MEDS: Isosorbide Mononitrate 30 MG Tablet PO (09:39)
[2021-03-05] MEDS: Glucerna Shake 120 ML LIQUID PO ×2 (09:39→21:15)
[2021-03-05] MEDS: Pramipexole Di-HCl 1 MG Tablet 1.5 MG PO ×2 (09:39→21:19)
[2021-03-05] MEDS: Clopidogrel Bisulfate 75 MG Tablet PO (09:39)
[2021-03-05] MEDS: Heparin Injection (Vial) 5,000 UNIT/ML VIAL 5000 UNIT SC ×2 (09:39→21:16)
--- NOTE | 2021-03-05 11:44 | PN.HOSP_ITS ---
Subjective Subjective swelling in right foot. Tolerating PO. Vomiting in salad yesterday. Thus far, no further vomiting. Objective Data Objective Data Vital Signs: Vital Signs Temp Pulse Resp BP Pulse Ox 36.7 C 90 22 H 146/69 H 98 03/05/21 08:12 03/05/21 08:12 03/05/21 08:12 03/05/21 08:12 03/05/21 08:12 Oxygen Delivery Method Room Air Weight: 88 kg Body Mass Index (BMI) 31.3 Intake & Output: Intake and Output for Last 24 Hours 03/03/21 03/04/21 03/05/21 23:59 23:59 23:59 Intake Total 1000 / 1000 3255.00 / 3505.00 1368.33 / 1368.33 Output Total 300 / 950 1250 / 1250 Balance 1000 / 1000 2955.00 / 2555.00 118.33 / 118.33 Lab / Micro Data Attestation: I reviewed the patient's lab results. Result Diagrams: 03/05/21 06:40 03/05/21 05:50 Labs: Laboratory Results - last 24 hr 03/04/21 03/04/21 03/04/21 05:54 11:51 17:07 WBC Corrected WBC RBC Hgb Hct MCV MCH MCHC RDW Std Deviation RDW Coeff of Fior Plt Count MPV Immature Gran % (Auto) Neut % (Auto) Lymph % (Auto) [place] % (Auto) Eos % (Auto) Baso % (Auto) Absolute Neuts (auto) Absolute Lymphs (auto) Total Counted Neutrophils % (Manual) Band Neutrophils % Lymphocytes % (Manual) Monocytes % (Manual) Eosinophils % (Manual) Basophils % (Manual) Metamyelocytes % Myelocytes % Promyelocytes % Blast Cells % Plasma Cell % (Manual) Other Cells % Nucleated RBC % Nucleated RBCs/100 WBC Differential Comment Diff Path Review Hypersegmented Neuts Atypical Lymphocytes Reactive Lymphocytes Smudge Cells Toxic Granulation Toxic Vacuolation Dohle Bodies Latesha Rods Platelet Estimate Plt Morphology Comment RBC Morphology Polychromasia Hypochromasia Poikilocytosis Basophilic Stippling Anisocytosis Microcytosis Macrocytosis Spherocytes Sickle Cells Target Cells Tear Drop Cells Ovalocytes Stomatocytes Maki-[place] Bodies [place]anan Cells Bite Cells Crenated Cell Acanthocytes (Spur) Rouleaux Schistocytes ESR Sodium Potassium Chloride Carbon Dioxide Anion Gap BUN Creatinine Estim Creat Clear Calc Est GFR (MDRD) Af Amer Est GFR (MDRD) Non-Af BUN/Creatinine Ratio Glucose Calcium C-React Prot Ext Range 187.00 H POC Glucose 273 H 136 H 03/04/21 03/05/21 03/05/21 21:45 05:50 05:50 WBC Cancelled Corrected WBC Cancelled RBC Cancelled Hgb Cancelled Hct Cancelled MCV Cancelled MCH Cancelled MCHC Cancelled RDW Std Deviation Cancelled RDW Coeff of Fior Cancelled Plt Count Cancelled MPV Cancelled Immature Gran % (Auto) Cancelled Neut % (Auto) Cancelled Lymph % (Auto) Cancelled [place] % (Auto) Cancelled Eos % (Auto) Cancelled Baso % (Auto) Cancelled Absolute Neuts (auto) Cancelled Absolute Lymphs (auto) Cancelled Total Counted Cancelled Neutrophils % (Manual) Cancelled Band Neutrophils % Cancelled Lymphocytes % (Manual) Cancelled Monocytes % (Manual) Cancelled Eosinophils % (Manual) Cancelled Basophils % (Manual) Cancelled Metamyelocytes % Cancelled Myelocytes % Cancelled Promyelocytes % Cancelled Blast Cells % Cancelled Plasma Cell % (Manual) Cancelled Other Cells % Cancelled Nucleated RBC % Cancelled Nucleated RBCs/100 WBC Cancelled Differential Comment Cancelled Diff Path Review Cancelled Hypersegmented Neuts Cancelled Atypical Lymphocytes Cancelled Reactive Lymphocytes Cancelled Smudge Cells Cancelled Toxic Granulation Cancelled Toxic Vacuolation Cancelled Dohle Bodies Cancelled Latesha Rods Cancelled Platelet Estimate Cancelled Plt Morphology Comment Cancelled RBC Morphology Cancelled Polychromasia Cancelled Hypochromasia Cancelled Poikilocytosis Cancelled Basophilic Stippling Cancelled Anisocytosis Cancelled Microcytosis Cancelled Macrocytosis Cancelled Spherocytes Cancelled Sickle Cells Cancelled Target Cells Cancelled Tear Drop Cells Cancelled Ovalocytes Cancelled Stomatocytes Cancelled [place] Bodies Cancelled [place] Cells Cancelled Bite Cells Cancelled Crenated Cell Cancelled Acanthocytes (Spur) Cancelled Rouleaux Cancelled Schistocytes Cancelled ESR Cancelled Sodium 139 Potassium 4.2 Chloride 112 H Carbon Dioxide 21.0 Anion Gap 6 BUN 45 H Creatinine 1.59 H Estim Creat Clear Calc 37.43 Est GFR (MDRD) Af Amer 43 L Est GFR (MDRD) Non-Af 36 L BUN/Creatinine Ratio 28.3 H Glucose 234 H Calcium 7.9 L C-React Prot Ext Range POC Glucose 192 H 03/05/21 03/05/21 06:40 08:06 WBC 14.3 H Corrected WBC RBC 3.08 L Hgb 8.9 L Hct 28.4 L MCV 92.2 MCH 28.9 MCHC 31.3 L RDW Std Deviation 46.1 H RDW Coeff of Fior 13.7 Plt Count 287 MPV 11.3 Immature Gran % (Auto) 0.600 Neut % (Auto) 84.1 H Lymph % (Auto) 8.6 L [place] % (Auto) 4.9 Eos % (Auto) 1.5 Baso % (Auto) 0.3 Absolute Neuts (auto) 12.0 H Absolute Lymphs (auto) 1.23 Total Counted Neutrophils % (Manual) Band Neutrophils % Lymphocytes % (Manual) Monocytes % (Manual) Eosinophils % (Manual) Basophils % (Manual) Metamyelocytes % Myelocytes % Promyelocytes % Blast Cells % Plasma Cell % (Manual) Other Cells % Nucleated RBC % 0 Nucleated RBCs/100 WBC Differential Comment Diff Path Review Hypersegmented Neuts Atypical Lymphocytes Reactive Lymphocytes Smudge Cells Toxic Granulation Toxic Vacuolation Dohle Bodies Latesha Rods Platelet Estimate Plt Morphology Comment RBC Morphology Polychromasia Hypochromasia Poikilocytosis Basophilic Stippling Anisocytosis Microcytosis Macrocytosis Spherocytes Sickle Cells Target Cells Tear Drop Cells Ovalocytes Stomatocytes [place] Bodies Jaci Cells Bite Cells Crenated Cell Acanthocytes (Spur) Rouleaux Schistocytes ESR 42 H Sodium Potassium Chloride Carbon Dioxide Anion Gap BUN Creatinine Estim Creat Clear Calc Est GFR (MDRD) Af Amer Est GFR (MDRD) Non-Af BUN/Creatinine Ratio Glucose Calcium C-React Prot Ext Range POC Glucose 239 H Micro: Microbiology 03/03/21 20:30 Urine, Clean Catch Urine Culture - Final Mixed Gram Positive Organisms 03/03/21 23:10 Stool Stool Lactoferrin - Final 03/03/21 23:10 Stool Enteric Bacteriology - Final 03/03/21 23:10 Stool C. difficile DNA Amplification - Final 03/03/21 19:55 Mucosa - Nasopharyngeal Influenza Types A,B Direct FA (MIKE) - Final 03/03/21 19:55 Mucosa - Nasopharyngeal SARS-CoV-2 Antigen (Rapid) - Final Radiography Diagnostic Testing: Radiology Impression Lower Extremity MRI 03/04/21 17:59 IMPRESSION: Increased arthropathy of the midfoot and second through fifth tarsometatarsal articulations, more suggestive of increasing neuropathic osteoarthropathy rather than septic arthritis. Soft tissue abscess plantar to the fifth metatarsal without interval development of bone edema of the partially amputated fifth metatarsal. Mild distal peroneal tenosynovitis. Atrophy of the intrinsic muscles of the foot consistent with peripheral neuropathy. Electronically Signed: Saqib Roberts MD at 9:59 EDT Tel , Service support , Foot X-Ray 03/04/21 20:27 IMPRESSION: 1. Small to moderate size 2.30 cm open wound/ulcer on the plantar aspect of the foot appears to be near the fourth and fifth metatarsal bases. 2. Moderate thickening of the cortex of the fourth metatarsal bone is likely related to previous infection or previous trauma. No cortical erosion or bony destruction is seen to suggest active infection. Electronically Signed: Noel DeJ esus MD at 22:58 EDT , Service support , Foot X-Ray 03/04/21 20:27 IMPRESSION: 1. Marked soft tissue swelling is present over the dorsum of the foot. A bulky osteophyte or loose body is seen on the dorsum and anterior aspect of the navicular bone. 2. Small square radiopaque density seen beneath the fifth metatarsal bone could represent a foreign body if not surgically intentional. 3. Arthropathy Electronically Signed: Noel De Jesus MD at 22:47 EDT , Service support , Physical Exam Const alert HEENT Head and Scalp: normocephalic Resp normal respiratory effort, no use of accessory muscles and clear to auscultation bilaterally Cardio regular rate, regular rhythm, S1 normal heart sound and S2 normal heart sound GI normal to inspection, nondistended, normoactive bowel sounds, non-tender and non-distended Extremity Peripheral Pulses: Yes pulses 2+ throughout Skin Skin Narrative: faint erythema of right foot and edema. Neuro Sensorium / Orientation: awake and alert Psych affect normal Assessment & Plan Assessment/Plan (1) [id number] kidney injury: QUALIFIERS: Acute renal failure type: unspecified Chronic kidney disease stage: stage 3 (moderate) Chronic kidney disease stage 3 subtype: stage 3a (GFR 45-59) Qualified Code(s): N17.9 - Acute kidney failure, unspecified; N18.31 - Chronic kidney disease, stage 3a (2) Gastroenteritis: (3) Sepsis: QUALIFIERS: Sepsis type: sepsis due to unspecified organism Sepsis acute organ dysfunction status: with acute organ dysfunction Severe sepsis acute organ dysfunction type: acute renal failure Acute renal failure type: unspecified Severe sepsis shock status: without septic shock Qualified Code(s): A41.9 - Sepsis, unspecified organism; R65.20 - Severe sepsis without septic shock; N17.9 - Acute kidney failure, unspecified PLAN: 1. Gastroenteritis * versus gastroparesis * Admit to [facility] with telemetry * Influenza and Covid, C.diff, enteric pathogens, fecal leuks negative * Continue IV hydration at 100 ml/hour 2. SIRS * 2/2 above * resolved * MRI right foot showing possible abscess. Reaching out to podiatry for recs. Start broad specturm abx (meropenem and linezolid given allergies to PCN and vanc.) 3. Acute on chronic kidney injury stage IIIa * Improved * Baseline creatinine 1.28 * Continue IV hydration at 100ml/hour 4. 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 Essential hypertension * Patient placed on cardiac heart healthy diet along with consistent carb calorie controlled * Continue metoprolol, isosorbide. Will hold losartan at this time 6. Hyperlipidemia * Continue atorvastatin 7. Charcot feet * Seen by podiatry who feels pt has charcot event of the right foot. * Podiatry recs: NWB righ foot. Partial weight-bearing left foot. Recommended pt be wheelchair bound for the time being, but pivot transfer with left heel. 8. VTE prophylaxis-SQ heparin 9. CAD * s/p PCI to mid LAD lesion with DARA on 01/01/2021 * continue DAPT with HIS * if intervention needed. She cannot have her clopidogrel interrupted due to possibility of in-stent stenosis if it is held. Visit Charges Inpatient E&M: 14818 Subs Hosp L3
--- NOTE | 2021-03-05 12:16 | US_ITS ---
STUDY: RENAL ULTRASOUND - COMPLETE REASON FOR EXAM: Female, 55 years old. Right flank pain TECHNIQUE: Ultrasound evaluation of the kidneys was performed with real-time and static rey-scale imaging. COMPARISON: None. FINDINGS: RIGHT KIDNEY: Normal location of the right kidney, which is normal in size. The right kidney measures 11.8 x 4.6 x 4.9 cm. There is a normal cortex of the right kidney. The renal cortex measures 1.1 cm. There is no right renal mass or cyst. There are no right renal calculi. There is no right hydronephrosis. DISTAL RIGHT URETER: There is non-visualization of the distal right ureter. There is no demonstrated right ureterovesical junction calculus. There is a visualized right ureteral jet. LEFT KIDNEY: Normal location of the left kidney, which is normal in size. The left kidney measures 10.8 x 4.3 x 6.7 cm. There is a normal cortex of the left kidney. The renal cortex measures 2.0 cm. There is no left renal mass or cyst. There are no left renal calculi. There is no left hydronephrosis. DISTAL LEFT URETER: There is non-visualization of the distal left ureter. There is no demonstrated left ureterovesical junction calculus. There is a visualized left ureteral jet. AORTA: There is no elongation or tortuosity of the abdominal aorta. I.V.C.: The IVC is patent. BLADDER: The bladder is incompletely distended US/Kidney and Bladder IMPRESSION: Normal ultrasound of the kidneys and urinary bladder. Electronically Signed: Garrick Lopez MD at 16:56 EDT , Service support ,
[2021-03-05 13:08] LABS: M R Staph aureus DNA By PCR Negative (Negative); Probe Check PASS; Specimen Processing Control PASS; Staph aureus DNA By PCR POSITIVE (Negative)
[2021-03-05 13:10] LABS: Bedside Glucose 260 mg/dL (70-110)
[2021-03-05] MEDS: Linezolid 600 MG 600 MG/300 ML BAG 200 MG IV ×2 (14:14→21:10)
[2021-03-05] MEDS: oxyCODONE 5 MG Tablet PO (16:08)
[2021-03-05 17:50] LABS: Bedside Glucose 185 mg/dL (70-110)
[2021-03-05] MEDS: Atorvastatin Calcium 80 MG Tablet PO (21:16)
[2021-03-05 21:45] LABS: Bedside Glucose 214 mg/dL (70-110)
[2021-03-05] MEDS: Ondansetron 4 MG/2 ML Vial IV (23:54)
[2021-03-06] VITALS (21 sets, daily range): BP systolic 124–179; BP diastolic 62–103; PULSE 89–117; RESP 18–30; TEMP 36.7–38.1; O2SAT 91–100
--- NOTE | 2021-03-06 00:17 | EKG12_ITS ---
Test Reason : CHEST PAIN Blood Pressure : / mmHG Vent. Rate : 107 BPM Atrial Rate : 107 BPM P-R Int : 156 ms QRS Dur : 084 ms QT Int : 322 ms P-R-T Axes : 053 020 018 degrees QTc Int : 429 ms Sinus tachycardia Otherwise normal ECG Confirmed by ELEN DELVALLE, FELTON ([id number]), managing editor HARINI PHAM ([id number]) on 03/10/2021 2:17:15 PM Referred By: JHON Confirmed By:FELTON MYRICK MD
--- NOTE | 2021-03-06 00:22 | NURSING ---
pt c/o nausea and vomiting. after garbing her zofran pt states she has trouble breathing and having cp. called Rt for EKG and put pt on 2L NC. zofran given, vitals taken, put pt on cont. pulse ox. made aware and sent EKG screen shot. pt states she used to have panic attacks but its been a long time since she had one. pt lying in bed now and more relax.
--- NOTE | 2021-03-06 02:27 | RAD_ITS ---
STUDY: X-RAY CHEST REASON FOR EXAM: Female, 55 years old. SOB TECHNIQUE: PA and lateral COMPARISON: 03/03/2021 FINDINGS: The lungs demonstrate interval development of mild diffuse interstitial prominence. There is no demonstrated pleural abnormality. Normal size heart. Normal mediastinum and elvie. Normal visualized pulmonary arteries. Normal visualized aortic arch and descending thoracic aorta. There are diffuse degenerative changes of the visualized thoracic spine. Normal visualized ribs, clavicles, and shoulders. There is no demonstrated abnormality of the visualized soft tissue structures of the upper abdomen. RAD/Chest PA and Lateral IMPRESSION: Mild diffuse interstitial prominence likely due to underlying edema. Electronically Signed: Harrison Nuno MD at 3:57 EDT Tel , Service support ,
[2021-03-06 06:42] LABS: Absolute Lymphocyte Count 0.95 X10^3/uL (0.83-4.51); Absolute Neutrophil Count 10.9 X10^3/uL (2.0-7.7); Basophil# 0.04 X10^3/uL; Basophil% 0.3 % (0-1); Eosinophil# 0.19 X10^3/uL; Eosinophils% 1.5 % (0-5); Hematocrit 27.9 % (37-47); Hemoglobin 8.7 g/dL (12.0-15.0); Lymphocyte # 0.95 X10^3/ul (0.83-4.51); Lymphocyte % 7.4 % (19-41); Mean Corp Hgb Conc 31.2 g/dL (32-36); Mean Corpuscular Hgb 28.5 pg (27.0-32.0); Mean Corpuscular Volume 91.5 fL (81-99); Mean Platelet Vol. 11.7 fl (6.2-12.0); Monocyte# 0.62 X10^3/uL; Monocyte% 4.8 % (0-10); NRBC Flagged by Analyzer 0 % (0-5); Neutrophil # 10.85 X10^3/uL (2.7-7.7); Neutrophil % 84.8 % (47-70); Platelet Count 279 K/mm3 (150-450); RBC Distribution Width CV 13.7 % (11.6-14.6); RBC Distribution Width SD 46.4 fl (35.1-43.9); Red Blood Count 3.05 M/mm3 (4.2-5.4); White Blood Count 12.8 K/mm3 (4.4-11.0)
[2021-03-06 07:09] LABS: ALB/GLOB Ratio 0.4 RATIO (0.9-2.4); AST(SGOT) 41 U/L (15-37); Alanine Aminotransfer ALT/SGPT 57 U/L (13-56); Albumin, Serum 1.9 g/dL (3.2-5.0); Alkaline Phosphatase 309 U/L (45-117); Anion Gap 7 (5-15); BUN 41 mg/dL (7-18); BUN/Creat Ratio 24.8 RATIO (10-20); Calcium,Total 8.4 mg/dL (8.5-10.1); Chloride 109 mmol/L (98-107); Creatinine, Serum 1.65 mg/dL (0.55-1.02); EST Glomerular Filtration Rate 34 mL/min (>60); Est Glom Filt Rate - Afr Amer 41 mL/min (>60); Estimated Creatinine Clearance 36.06 ml/min; Globulin 4.4 g/dL (2.2-4.2); Glucose 235 mg/dL (74-106); Potassium 4.3 mmol/L (3.5-5.1); Protein, Total 6.3 g/dL (6.4-8.2); Sodium Level 137 mmol/L (136-145)
--- NOTE | 2021-03-06 07:47 | PN_ITS ---
Subjective Subjective Patient seen and examined resting comfortably. Patient denies any new pedal complaints. Patient denies any nausea, fever, chills, chest pain, cough, streaking, purulence, vomiting. Patient relates that she is having some issues catching her breath and looks mildly agitated in bed today Objective Data Objective Data Vital Signs: Vital Signs Temp Pulse Resp BP Pulse Ox 99 F 89 20 H 158/92 H 95 03/06/21 02:23 03/06/21 04:09 03/06/21 02:23 03/06/21 02:23 03/06/21 02:23 Oxygen Flow Rate (L/min) 3 Oxygen Delivery Method Nasal Cannula Weight: 88 kg Body Mass Index (BMI) 31.3 Intake & Output: Intake and Output for Last 24 Hours 03/04/21 03/05/21 03/06/21 23:59 23:59 23:59 Intake Total 3255.00 / 3505.00 4219.08 / 4219.08 751.67 / 751.67 Output Total 300 / 950 1250 / 1650 850 / 850 Balance 2955.00 / 2555.00 2969.08 / 2569.08 -98.33 / -98.33 Lab / Micro Data Result Diagrams: 03/06/21 06:15 03/06/21 06:15 Labs: Laboratory Results - last 24 hr 03/05/21 03/05/21 03/05/21 08:06 09:25 12:54 WBC RBC Hgb Hct MCV MCH MCHC RDW Std Deviation RDW Coeff of Fior Plt Count MPV Immature Gran % (Auto) Neut % (Auto) Lymph % (Auto) [place] % (Auto) Eos % (Auto) Baso % (Auto) Absolute Neuts (auto) Absolute Lymphs (auto) Nucleated RBC % Sodium Potassium Chloride Carbon Dioxide Anion Gap BUN Creatinine Estim Creat Clear Calc Est GFR (MDRD) Af Amer Est GFR (MDRD) Non-Af BUN/Creatinine Ratio Glucose Calcium Total Bilirubin AST ALT Alkaline Phosphatase Total Protein Albumin Globulin Albumin/Globulin Ratio S.aureus Protein A PCR POSITIVE H MRSA (PCR) Negative POC Glucose 239 H 260 H 03/05/21 03/05/21 03/06/21 17:44 21:37 06:15 WBC 12.8 H RBC 3.05 L Hgb 8.7 L Hct 27.9 L MCV 91.5 MCH 28.5 MCHC 31.2 L RDW Std Deviation 46.4 H RDW Coeff of Fior 13.7 Plt Count 279 MPV 11.7 Immature Gran % (Auto) 1.200 H Neut % (Auto) 84.8 H Lymph % (Auto) 7.4 L [place] % (Auto) 4.8 Eos % (Auto) 1.5 Baso % (Auto) 0.3 Absolute Neuts (auto) 10.9 H Absolute Lymphs (auto) 0.95 Nucleated RBC % 0 Sodium Potassium Chloride Carbon Dioxide Anion Gap BUN Creatinine Estim Creat Clear Calc Est GFR (MDRD) Af Amer Est GFR (MDRD) Non-Af BUN/Creatinine Ratio Glucose Calcium Total Bilirubin AST ALT Alkaline Phosphatase Total Protein Albumin Globulin Albumin/Globulin Ratio S.aureus Protein A PCR MRSA (PCR) POC Glucose 185 H 214 H 03/06/21 06:15 WBC RBC Hgb Hct MCV MCH MCHC RDW Std Deviation RDW Coeff of Fior Plt Count MPV Immature Gran % (Auto) Neut % (Auto) Lymph % (Auto) [place] % (Auto) Eos % (Auto) Baso % (Auto) Absolute Neuts (auto) Absolute Lymphs (auto) Nucleated RBC % Sodium 137 Potassium 4.3 Chloride 109 H Carbon Dioxide 21.0 Anion Gap 7 BUN 41 H Creatinine 1.65 H Estim Creat Clear Calc 36.06 Est GFR (MDRD) Af Amer 41 L Est GFR (MDRD) Non-Af 34 L BUN/Creatinine Ratio 24.8 H Glucose 235 H Calcium 8.4 L Total Bilirubin 0.20 AST 41 H ALT 57 H Alkaline Phosphatase 309 H Total Protein 6.3 L Albumin 1.9 L Globulin 4.4 H Albumin/Globulin Ratio 0.4 L S.aureus Protein A PCR MRSA (PCR) POC Glucose Micro: Microbiology 03/05/21 09:25 Wound - Left Foot Gram Stain - Final 03/03/21 20:30 Urine, Clean Catch Urine Culture - Final Mixed Gram Positive Organisms 03/03/21 23:10 Stool Stool Lactoferrin - Final 03/03/21 23:10 Stool Enteric Bacteriology - Final 03/03/21 23:10 Stool C. difficile DNA Amplification - Final 03/03/21 19:55 Mucosa - Nasopharyngeal Influenza Types A,B Direct FA (MIKE) - Final 03/03/21 19:55 Mucosa - Nasopharyngeal SARS-CoV-2 Antigen (Rapid) - Final Radiography Diagnostic Testing: Radiology Impression Venous Doppler Study 03/04/21 16:35 Interpretation Summary There is no evidence of right lower extremity deep vein thrombosis. Right great saphenous vein appears patent and compressible segmentally. Right groin 1.26 x 4.05 cm structure consistent with a lymph node. Clinical correlation would be appropriate. COVID-19 protocol utilized Ordering Physician: Kali Prado Performed By: Reginald Garcia, T Lower Extremity MRI 03/04/21 17:59 IMPRESSION: Increased arthropathy of the midfoot and second through fifth tarsometatarsal articulations, more suggestive of increasing neuropathic osteoarthropathy rather than septic arthritis. Soft tissue abscess plantar to the fifth metatarsal without interval development of bone edema of the partially amputated fifth metatarsal. Mild distal peroneal tenosynovitis. Atrophy of the intrinsic muscles of the foot consistent with peripheral neuropathy. Electronically Signed: Saqib Roberts MD at 9:59 EDT Tel , Service support , Renal Ultrasound 03/05/21 12:16 IMPRESSION: Normal ultrasound of the kidneys and urinary bladder. Electronically Signed: Garrick Lopez MD at 16:56 EDT , Service support , Chest X-Ray 03/06/21 02:27 IMPRESSION: Mild diffuse interstitial prominence likely due to underlying edema. Electronically Signed: Harrison Nuno MD at 3:57 EDT Tel , Service support , Physical Exam Const alert General Appearance: cooperative Extremity normal capillary refill and no calf tenderness General Extremity: edema bilateral lower extremity, no tenderness to palpation of joints or extremities and other findings Other Details: Capillary refill time less than 3 seconds noted to digits ; Negative for clubbing or cyanosis Peripheral Pulses: Yes posterior tibial pulses present bilateral diminished and dorsalis pedis pulses present bilateral diminished Skin General Skin Exam: atrophy and dry skin; Negative for ecchymosis, erythema, eschar, pallor or dermatitis Rashes: no rashes Wounds: wounds noted Wound Narrative: plantar left foot ulceration appears slightly deeper than upon examination yesterday. There is no erythema or edema or malodor or purulence or other suggestion signs of infection. There is some maceration noted periwound mild. Wound is to the level of muscle Right foot has an increase in edema and calor. There is some new redness noted to the plantar aspect of the foot with new blister formation that was not there upon examination yesterday. Blister was deroofed it was noted that full- thickness wound was underlying with serosanguineous drainage. No purulent drainage. Does not probe deep. To the level of fascia. There is pain to palpation of movement of this joint. Muscle strength is diminished but intact. Patient is less tender today compared to previous examination. 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 Charcot foot deformity noted bilaterally. Neuro Sensory Exam: extremities light-touch: decreased Motor Exam: strength abnormal other (4/5 to all pedal muscle groups) Psych Appearance: appropriate Assessment & Plan Assessment/Plan (1) Charcot's joint of right foot: (2) Non-pressure chronic ulcer of other part of left foot with fat layer exposed: (3) Sepsis: QUALIFIERS: Sepsis type: sepsis due to unspecified organism Sepsis acute organ dysfunction status: with acute organ dysfunction Severe sepsis acute organ dysfunction type: acute renal failure Acute renal failure type: unspecified Severe sepsis shock status: without septic shock Qualified Code(s): A41.9 - Sepsis, unspecified organism; R65.20 - Severe sepsis without septic shock; N17.9 - Acute kidney failure, unspecified (4) [id number] kidney injury: QUALIFIERS: Acute renal failure type: unspecified Chronic kidney disease stage: stage 3 (moderate) Chronic kidney disease stage 3 subtype: stage 3a (GFR 45-59) Qualified Code(s): N17.9 - Acute kidney failure, unspecified; N18.31 - Chronic kidney disease, stage 3a (5) Gastroenteritis: (6) Delayed wound healing: (7) Amputation foot, bilat: (8) Charcot's joint of left foot: (9) Type 2 diabetes mellitus with diabetic polyneuropathy: QUALIFIERS: Diabetes mellitus moth exterminator insulin use: with moth exterminator use Qualified Code(s): E11.42 - Type 2 diabetes mellitus with diabetic polyneuropathy; Z79.4 - intermediate (current) use of insulin (10) Non-pressure chronic 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 layer exposed: PLAN: Patient seen and examined bedside patient is showing some mild agitation and states that she is having problems catching her breath After verbal consent was obtained sharp excisional debridement was carried out of the right plantar foot blister and ulceration. Sharp excisional nonselective debridement was carried out into the level of subcutaneous tissue with a curette with removal of all devitalized, slough, biofilm, and fibrous tissue. This was done without incidence. This was tolerated due to patient's neuropathy. Predebridement measurements were 5 x 6 x 0.1 cm and post debridement measurements were 5.1 x 6.1 x 0.2 cm. There is concern for acute Charcot event to the right foot. There is significa nt increase in edema and temperature to the right foot compared to her baseline. Examination is consistent with Charcot foot presentation. Discussed with patient the importance of nonweightbearing to this foot. Patient understands and is agreeable. X-rays were reviewed consistent with Charcot changes to the midfoot. Patient has history of Charcot event to this foot in the past. MRI was also reviewed also consistent with Charcot changes. There is also noted to be an abscess to the plantar fifth metatarsal base. New wound to right foot does not seem to communicate with this abscess. No purulent drainage was expressed. Patient noted to still have leukocytosis. Upon discussion with hospitalist there is concern that this is from GI issues more so than foot infection. Also discussed possibility of getting bone biopsies to confirm Charcot diagnosis with hospitalist Dr. Jopperi reviewed. It was determined that these were not necessary. No podiatry surgical plans at this time. Patient is less hemoglobin A1c on 12/29/2020 was 13.1 patient noted to have very poor blood glucose control and can range anywhere from around 60 to over 500 Due to concern for acute Charcot event to the right foot I recommend nonweightbearing to her right foot at this time. Discussed this with the p sanju. Discussed that any weightbearing can further exacerbate Charcot foot deformity. With ulceration to left foot is also on advisable for patient to weight-bear on her left foot. Recommend patient be wheelchair-bound. If patient needs to pivot to transfer can put weight through heel on left foot. It is noted that ultrasound for patient was noted to be negative for DVTs. Continue daily dressing changes of left foot consists are still silver alginate, 4 x 4's, Kerlix, [place] wrap to bilateral feet Continue antibiotics All questions answered Podiatry will continue to follow Thank you for the consult please contact if any questions or concerns Joana Cuevas DPM [facility] [phone] This note was generated with [employer] dictation software. It may contain incorr ect words, spelling, and punctuation that were not noted in checking the note before signing.
--- NOTE | 2021-03-06 08:30 | PN.HOSP_ITS ---
Subjective Subjective Developed shortness of breath this AM. Also mild left sided chest pain. Bullae on foot unroofed by podiatry. Objective Data Objective Data Vital Signs: Vital Signs Temp Pulse Resp BP Pulse Ox 36.8 C 116 H 28 H 171/98 H 97 03/06/21 08:12 03/06/21 08:12 03/06/21 08:12 03/06/21 08:12 03/06/21 08:12 Oxygen Flow Rate (L/min) 3 Oxygen Delivery Method Nasal Cannula Weight: 88 kg Body Mass Index (BMI) 31.3 Intake & Output: Intake and Output for Last 24 Hours 03/04/21 03/05/21 03/06/21 23:59 23:59 23:59 Intake Total 3255.00 / 3505.00 4219.08 / 4219.08 751.67 / 751.67 Output Total 300 / 950 1250 / 1650 850 / 850 Balance 2955.00 / 2555.00 2969.08 / 2569.08 -98.33 / -98.33 Lab / Micro Data Attestation: I reviewed the patient's lab results. Result Diagrams: 03/06/21 06:15 03/06/21 06:15 Labs: Laboratory Results - last 24 hr 03/05/21 03/05/21 03/05/21 09:25 12:54 17:44 WBC RBC Hgb Hct MCV MCH MCHC RDW Std Deviation RDW Coeff of Fior Plt Count MPV Immature Gran % (Auto) Neut % (Auto) Lymph % (Auto) [place] % (Auto) Eos % (Auto) Baso % (Auto) Absolute Neuts (auto) Absolute Lymphs (auto) Nucleated RBC % Sodium Potassium Chloride Carbon Dioxide Anion Gap BUN Creatinine Estim Creat Clear Calc Est GFR (MDRD) Af Amer Est GFR (MDRD) Non-Af BUN/Creatinine Ratio Glucose Calcium Total Bilirubin AST ALT Alkaline Phosphatase Total Protein Albumin Globulin Albumin/Globulin Ratio S.aureus Protein A PCR POSITIVE H MRSA (PCR) Negative POC Glucose 260 H 185 H 03/05/21 03/06/21 03/06/21 21:37 06:15 06:15 WBC 12.8 H RBC 3.05 L Hgb 8.7 L Hct 27.9 L MCV 91.5 MCH 28.5 MCHC 31.2 L RDW Std Deviation 46.4 H RDW Coeff of Fior 13.7 Plt Count 279 MPV 11.7 Immature Gran % (Auto) 1.200 H Neut % (Auto) 84.8 H Lymph % (Auto) 7.4 L [place] % (Auto) 4.8 Eos % (Auto) 1.5 Baso % (Auto) 0.3 Absolute Neuts (auto) 10.9 H Absolute Lymphs (auto) 0.95 Nucleated RBC % 0 Sodium 137 Potassium 4.3 Chloride 109 H Carbon Dioxide 21.0 Anion Gap 7 BUN 41 H Creatinine 1.65 H Estim Creat Clear Calc 36.06 Est GFR (MDRD) Af Amer 41 L Est GFR (MDRD) Non-Af 34 L BUN/Creatinine Ratio 24.8 H Glucose 235 H Calcium 8.4 L Total Bilirubin 0.20 AST 41 H ALT 57 H Alkaline Phosphatase 309 H Total Protein 6.3 L Albumin 1.9 L Globulin 4.4 H Albumin/Globulin Ratio 0.4 L S.aureus Protein A PCR MRSA (PCR) POC Glucose 214 H Micro: Microbiology 03/05/21 09:25 Wound - Left Foot Gram Stain - Final 03/03/21 20:30 Urine, Clean Catch Urine Culture - Final Mixed Gram Positive Organisms 03/03/21 23:10 Stool Stool Lactoferrin - Final 03/03/21 23:10 Stool Enteric Bacteriology - Final 03/03/21 23:10 Stool C. difficile DNA Amplification - Final 03/03/21 19:55 Mucosa - Nasopharyngeal Influenza Types A,B Direct FA (MIKE) - Final 03/03/21 19:55 Mucosa - Nasopharyngeal SARS-CoV-2 Antigen (Rapid) - Final Radiography Diagnostic Testing: Radiology Impression Venous Doppler Study 03/04/21 16:35 Interpretation Summary There is no evidence of right lower extremity deep vein thrombosis. Right great saphenous vein appears patent and compressible segmentally. Right groin 1.26 x 4.05 cm structure consistent with a lymph node. Clinical correlation would be appropriate. COVID-19 protocol utilized Ordering Physician: Kali Prado Performed By: Reginald Garcia, T Lower Extremity MRI 03/04/21 17:59 IMPRESSION: Increased arthropathy of the midfoot and second through fifth tarsometatarsal articulations, more suggestive of increasing neuropathic osteoarthropathy rather than septic arthritis. Soft tissue abscess plantar to the fifth metatarsal without interval development of bone edema of the partially amputated fifth metatarsal. Mild distal peroneal tenosynovitis. Atrophy of the intrinsic muscles of the foot consistent with peripheral neuropathy. Electronically Signed: Saqib Roberts MD at 9:59 EDT Tel , Service support , Renal Ultrasound 03/05/21 12:16 IMPRESSION: Normal ultrasound of the kidneys and urinary bladder. Electronically Signed: Garrick Lopez MD at 16:56 EDT , Service support , Chest X-Ray 03/06/21 02:27 IMPRESSION: Mild diffuse interstitial prominence likely due to underlying edema. Electronically Signed: Harrison Nuno MD at 3:57 EDT Tel , Service support , Physical Exam Narrative anxious. afebrile. tachypneic. on NC, but mouth-breathing. Const alert Eyes PERRL Resp Resp Narrative: tachypneic. coarse breath sounds bilaterally. Cardio regular rate, regular rhythm, S1 normal heart sound and S2 normal heart sound GI normal to inspection, nondistended, normoactive bowel sounds, non-tender and non-distended Psych Mood & Affect: anxious Assessment & Plan Assessment/Plan (1) [id number] kidney injury: QUALIFIERS: Acute renal failure type: unspecified Chronic kidney disease stage: stage 3 (moderate) Chronic kidney disease stage 3 subtype: stage 3a (GFR 45-59) Qualified Code(s): N17.9 - Acute kidney failure, unspecified; N18.31 - Chronic kidney disease, stage 3a (2) Gastroenteritis: (3) Sepsis: QUALIFIERS: Sepsis type: sepsis due to unspecified organism Sepsis acute organ dysfunction status: with acute organ dysfunction Severe sepsis acute organ dysfunction type: acute renal failure Acute renal failure type: unspecified Severe sepsis shock status: without septic shock Qualified Code(s): A41.9 - Sepsis, unspecified organism; R65.20 - Severe sepsis without septic shock; N17.9 - Acute kidney failure, unspecified PLAN: 1. Gastroenteritis * versus gastroparesis * Admit to [facility] with telemetry * Influenza and Covid, C.diff, enteric pathogens, fecal leuks negative * HLIV 2. right foot abscess * unroofed 03/06 * follow up cultures * on meropenem and linezolid * no osteo on MRI 3. sepsis * POA * 2/2 gastroenteritis and foot abscess 4. Acute HFpEF * EF 55% from echo 12/29/2020 * start furosemide * overall positive 6.8 liters (though likely overestimated) 5. Acute on chronic kidney injury stage IIIa * Improved * Baseline creatinine 1.28 * monitor closely while on furosemide 4. Uncontrolled diabetes mellitus type 2 with diabetic polyneuropathy * Continue patient home regimen of Lantus 30 units subcu daily along with Humalog 20 units 3 times daily with meals * Blood sugars before meals and at bedtime with sliding scale insulin also ord ered * Patient placed on consistent carb calorie controlled diet 5. Essential hypertension * Patient placed on cardiac heart healthy diet along with consistent carb calorie controlled * Continue metoprolol, isosorbide. Will hold losartan at this time 6. Hyperlipidemia * Continue atorvastatin 7. Charcot feet * Seen by podiatry who feels pt has charcot event of the right foot. * Podiatry recs: NWB righ foot. Partial weight-bearing left foot. Recommended pt be wheelchair bound for the time being, but pivot transfer with left heel. 8. VTE prophylaxis-SQ heparin 9. CAD * s/p PCI to mid LAD lesion with DARA on 01/01/2021 * continue DAPT with HIS * if intervention needed. She cannot have her clopidogrel interrupted due to possibility of in-stent stenosis if it is held. Transfer to PCU. CAROLYNE RN Visit Charges Inpatient E&M: 71751 Subs Hosp L3
[2021-03-06] MEDS: Insulin Lispro 100 UNIT/ML INSULN.PEN SC ×2 (08:32→12:05)
[2021-03-06] MEDS: Aspirin 81 MG TAB.CHEW PO (08:33)
[2021-03-06] MEDS: Iron Polysaccharide Complex 150 MG CAPSULE PO (08:33)
[2021-03-06 08:40] LABS: Bedside Glucose 213 mg/dL (70-110)
[2021-03-06] MEDS: Heparin Injection (Vial) 5,000 UNIT/ML VIAL 5000 UNIT SC ×2 (10:09→22:00)
[2021-03-06] MEDS: Isosorbide Mononitrate 30 MG Tablet PO (10:09)
[2021-03-06] MEDS: Clopidogrel Bisulfate 75 MG Tablet PO (10:09)
[2021-03-06] MEDS: Pramipexole Di-HCl 1 MG Tablet 1.5 MG PO ×2 (10:09→22:00)
[2021-03-06] MEDS: Furosemide 40 MG/4 ML Vial IV ×2 (10:10→17:55)
[2021-03-06] MEDS: 0.9% Saline Lock 10 ML Syringe IV ×3 (10:10→17:55)
[2021-03-06] MEDS: Linezolid 600 MG 600 MG/300 ML BAG 200 MG IV ×2 (10:15→21:09)
[2021-03-06 11:52] LABS: M R Staph aureus DNA By PCR Negative (Negative); Probe Check PASS; Specimen Processing Control PASS; Staph aureus DNA By PCR POSITIVE (Negative)
[2021-03-06] MEDS: Insulin Lispro 100 UNIT/ML INSULN.PEN 20 UNIT SC ×2 (12:05→17:55)
--- NOTE | 2021-03-06 12:15 | CASEMGMT ---
Palliative screening tool completed at this time for Lace/Strata 3. Patient meets criteria at this time. Hospitalist notified and request consult be made. KELSIE CM place palliative consult and called and faxed [facility].
[2021-03-06 12:16] LABS: Bedside Glucose 230 mg/dL (70-110)
[2021-03-06] MEDS: Ondansetron 4 MG/2 ML Vial IV (12:39)
[2021-03-06] MEDS: Acetaminophen 325 MG Tablet 650 MG PO ×2 (13:57→23:36)
--- NOTE | 2021-03-06 14:14 | PCM.CONS.P ---
Assessment & Plan Assessment/Plan (1) Weakness: (2) Debility: (3) Ulcer of left foot with necrosis of muscle: (4) 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: (5) Charcot's joint of left foot: (6) Charcot's joint of right foot: (7) Type 2 diabetes mellitus with diabetic polyneuropathy: QUALIFIERS: Diabetes mellitus terminal gauger supervisor insulin use: with skilled nursing use Qualified Code(s): E11.42 - Type 2 diabetes mellitus with diabetic polyneuropathy; Z79.4 - shelter (current) use of insulin (8) Delayed wound healing: (9) Amputation foot, bilat: (10) Gastroenteritis: (11) Mwovx-ps-ircqfse kidney injury: QUALIFIERS: Acute renal failure type: unspecified Chronic kidney disease stage: stage 3 (moderate) Chronic kidney disease stage 3 subtype: stage 3a (GFR 45-59) Qualified Code(s): N17.9 - Acute kidney failure, unspecified; N18.31 - Chronic kidney disease, stage 3a (12) Atherosclerosis of [place] coronary artery of [place] heart without angina pectoris: (13) History of coronary artery stent placement: (14) NSTEMI (non-ST elevated myocardial infarction): (15) Essential (primary) hypertension: (16) HLD (hyperlipidemia): QUALIFIERS: Hyperlipidemia type: unspecified Qualified Code(s): E78.5 - Hyperlipidemia, unspecified PLAN: 55-year-old female with multiple comorbidities, chronic foot ulcers and diabetic neuropathy, seen today for initial palliative care consultation secondary to weakness and debility, albumin 1.8, and frequent hospitalizations (4). 1. Weakness and debility: She is now nonweightbearing of right foot and limited weightbearing of left foot. Working with therapy. Has chronic, nonhealing wounds, following at the wound center. Continue with therapy 2. Nonhealing wounds: Managed by podiatry/Dr. Cuevas at the wound center. She had a recent debridement. Not a lot of pain associated with foot wounds secondary to her neuropathy. 3. Diabetic polyneuropathy: Currently on gabapentin 900 mg 3 times daily, Mirapex 1.5 mg twice daily, as needed oxycodone 5 mg every 6 hours as needed, however list this as an allergy-feels like she is drowning. Also has as needed Tylenol available for pain. 4. Recent NSTEMI/DARA, HTN/HLD/CKD/Charcot foot: Complicates overall care, management, recovery, and prognosis. Follow-up closely with her specialists and PCP. Thank you for the opportunity to participate in this patient's care, please do not hesitate to contact [facility] with any further questions or concerns. Palliative direct line is [phone]. We will follow up after discharge to home and will discuss palliative services further at that time. Greater than 50% of F2F visit dedicated to education and counseling of palliative care services, medications, comorbid conditions and potential assistance with management, and plan of care moving forward. Discussed palliative services and patient willing to be followed when discharged, she will likely go to SNF as she is unable to care for herself properly at home at this point. Contact information given to patient, we will follow up when she is discharged. Start time: 1407 End time: 1516 HPI Consult Data Date of Consult: 03/06/21 HPI Narrative HPI Narrative: DIONY ROCHA, is a 55 F who presented to [facility] 03/03/2021 with complaints of fever, vomiting, and diarrhea. She has been receiving IV fluid hydration for her FELI and probable viral gastroenteritis volume loss. Podiatry was consulted, notes that patient has slow wound healing and has been in a total contact cast to the left foot for treating of chronic plantar left foot ulceration. She does follow with the wound center, last seen 02/24 with no signs of infection at that time. She has been undergoing skin grafts. There was concern for an acute Charcot event to the right foot and was ordered an x-ray, but apparently never got the test completed. Podiatry has now recommended x-rays and MRI to assess for underlying osteomyelitis or septic joint. She is currently nonweightbearing to that right foot. Patient underwent debridement of the left plantar foot ulceration 03/05. MRI consistent with Charcot changes, no evidence of osteomyelitis. She also had a venous Doppler study 03/04 that showed no evidence of right lower extremity DVT. Renal ultrasound was normal. Past medical history of uncontrolled T2 DM with diabetic polyneuropathy, CAD s/p stent placement to LAD 01/01/2021, Charcot's foot on the left, and chronic nonpressure ulcer left foot, partial foot amputation, CKD, NSTEMI, HLD, HTN. She follows routinely with podiatry, Dr. Cuevas. Hgb A1c 12/29/2020 was noted to be 13.1. Patient had reported some mild left-sided chest pain and shortness of breath this morning. She is being diuresed for acute heart failure with preserved ejection fraction. Her losartan is on hold. Patient is currently wheelchair-bound due to nonweightbearing of the right foot and partial weightbearing of left foot. She remains on IV antibiotics. Patient lives alone in a one-story home. There is 3 steps to enter and she does not have rails on the stairs to the basement where her laundry is. She is having difficulty with independent ADLs. Her cousin Caren takes her grocery shopping but patient typically eating microwavable meals. She has a referral out for [employer] [facility]. She does not drive but again her cousin, Caren assists her with transportation. Patient also utilizes the [facility] van transportation when going to the wound clinic. She also has a daughter Trisha. Her son Antonio and her are estranged. She does not currently have a living will or power of commercial litigation attorney. She uses [facility] retail pharmacy for her prescriptions. Also follows with Dr. Jean Baptiste at the [facility]. She has not been going to the counseling center citing transportation issues. Her wound center appointments are typically weekly on Tuesdays. Patient appears to be in some pain, states her neuropathy to her right foot is worse today. She does acknowledge she had a debridement yesterday. Her foot is swollen compared to the left. She is constantly moving her legs in bed and pulling off her dressings in the process. Nurse reports she has replaced multiple times today. Patient has not been adhering to NWB status. Patient complains of feeling very thirsty. She feels like she has a fever. She is restless in her bed. Her friend is at the bedside and reports she just assisted her to the bedside commode to urinate. Reporting intermittent nausea, no vomiting. She has IV fluids infusing and antibiotics. Her appetite has been suboptimal. [facility] Medical History (Updated 03/06/21 @ 14:34 by Vonnie Carey, [id number]) Acquired varus deformity of left foot Acquired varus deformity of right foot Anemia Anxiety Anxiety and depression Atherosclerosis of [place] coronary artery of [place] heart without angina pectoris Back pain, chronic Chronic renal insufficiency Chronic ulcer of left foot with fat layer exposed Coronary artery disease Delayed wound healing Depression Diabetes Diabetic foot ulcer associated with type 2 diabetes mellitus Diabetic infection of left foot Diabetic polyneuropathy Diabetic ulcer of right ankle Essential (primary) hypertension GERD (gastroesophageal reflux disease) Hemoglobin A1c greater than 9.0% HLD (hyperlipidemia) Hypertension Ischemic cardiomyopathy Myocardial infarct Non-compliance Non-smoker Normocytic anemia NSTEMI (non-ST elevated myocardial infarction) (09/20/18) Obesity (BMI 30.0-34.9) Osteomyelitis of left foot RLS (restless legs syndrome) TIA (transient ischemic attack) Type 2 diabetes mellitus with diabetic polyneuropathy Ulcer of left foot with muscle involvement without evidence of necrosis Ulcer of right lower extremity with fat layer exposed Home Medications atorvastatin 80 mg tablet 80 mg PO QHS #90 tablet 11/30/19 [Rx Last Taken 03/02/21 22:00] insulin lispro 20 unit SC TIDCM 08/31/20 [History Last Taken 11/14/20 09:00] paroxetine HCl 40 mg PO QHS 09/12/20 [History Last Taken 11/13/20 21:00] polysaccharide iron complex 150 mg PO DAILYCM 09/12/20 [History Last Taken 03/02/21 22:00] pramipexole 1.5 mg PO BID 09/12/20 [History Last Taken 03/02/21 22:00] aspirin 81 mg PO DAILY@0800 tab.chew 11/15/20 [Rx Last Taken 03/02/21 22:00] clopidogrel 75 mg PO DAILY #0 tablet 01/01/21 [Rx Last Taken 03/02/21 22:00] gabapentin 300 mg capsule 900 mg PO TID cap 01/20/21 [History Last Taken 03/02/21 22:00] insulin glargine 100 unit/mL (3 mL) subcutaneous pen 30 unit SC DAILY ml 01/20/21 [History Last Taken Unknown] nitroglycerin 0.4 mg sublingual tablet 0.4 mg SL Q5-15M PRN #25 tablet 01/20/21 [Rx Last Taken Unknown] isosorbide mononitrate 30 mg PO DAILY 03/03/21 [History Last Taken 03/02/21 22:00] Allergy/AdvReac Type Severity Reaction Status Date / Time oxycodone [From OxyContin] Allergy feels Verified 03/05/21 14:11 like I'm drowning Penicillins Allergy swelling Verified 03/03/21 22:43 in throat vancomycin Allergy Itching Verified 03/03/21 19:31 metronidazole AdvReac Nausea Verified 03/03/21 19:31 Family History Mother Diabetes CVA (cerebral vascular accident) Brother CAD (coronary artery disease) CABG X 3 Cancer testicular Diabetes Brother CAD (coronary artery disease) CABG X3 Diabetes Brother CAD (coronary artery disease) Stents Diabetes Sister CAD (coronary artery disease) CABG x 3 CVA (cerebral vascular accident) Diabetes Surgical History History of bilateral carpal tunnel release History of History of coronary artery stent placement (12/31/20) History of foot surgery History of rotator cuff surgery Social History Smoking Status: Never smoker alcohol intake: never substance use type: does not use caffeine: Yes Type: carbonated beverages Number of servings: 2 ROS Constitutional Constitutional: Reports chills, excessive sweating, fatigue, fever(s) and weakness Eyes Eyes: Denies change in vision ENT HEENT: Reports dry mouth; Denies sore throat Cardiovascular Cardiovascular: Denies chest pain or dyspnea Gastrointestinal Gastrointestinal: Reports bloating and nausea; Denies abdominal pain or diarrhea Genitourinary Genitourinary: Denies burning urination or difficulty urinating Musculoskeletal Musculoskeletal: Reports back pain, muscle weakness, myalgias, numbness and tingling; Denies tremors Integumentary Integumentary: Reports skin ulcer and wounds Neurologic Neurologic: Denies abnormal speech, focal weakness or seizures Psychiatric Psychiatric: Reports anxiety and depression; Denies confusion or hallucinations Hematologic/Lymphatic Hematologic/Lymphatic: Reports anemia Allergic/Immunologic Allergic/Immunologic: Denies rhinitis, hives or urticaria Physical Exam Const alert and oriented x3 General Appearance: in distress Positive for mild (painful), disheveled and appears older than stated age Nutritional Appearance: obese HEENT normocephalic and head/scalp atraumatic Eyes General Eye: normal appearance of both eyes Neck supple General: trachea midline Resp normal respiratory effort Effort and Inspection: able to speak in complete sentences Auscultation: clear to auscultation bilaterally and diminished lung sounds Cardio regular rhythm, S1 normal heart sound and S2 normal heart sound Rate: tachycardic GI soft to palpation and non-tender Auscultation: normoactive bowel sounds Back/Spine normal to inspection General Back: CVA tenderness right; Negative for mass, warmth or ecchymosis Extremity General Extremity: amputation, deformity and edema right lower extremity moderate; Negative for cyanosis Skin Wounds: wounds noted Wound Narrative: currently covered by dsg, intact. Neuro CN's II-XII intact bilaterally Psych Appearance: unkempt and disheveled Attitude: calm Activity / Motor Behavior: fidgetting Speech: normal speech Mood & Affect: anxious and irritable Insight: fair Judgement: poor
--- NOTE | 2021-03-06 14:43 | CASEMGMT ---
KELSIE IRELAND NOTE: Podiatry recommends NWB rt foot. PWB lt foot. Recommend W/C bound for time being and pivot tx w/lt heel. KELSIE IRELAND to room to discuss this w/pt. She confirms she has a knee scooter and W/C and once she gets in her home she can follow these recommendations. She did state, though, with the 3 steps to get into her home, she would need crutches to get up them. KELSIE IRELAND asked pt if she would like to go to a SNF and she declined initially. KELSIE IRELAND explained to pt, therapy could come work w/pt to ensure she is able to follow these recommendations. Pt stated she was not feeling well today as she is nauseated and does not feel like working w/therapy today. KELSIE IRELAND back to room about an hour later. Cousin in room @ bedside. Pt resting w/eyes closed. Cousin voiced concern w/pt going home and feels it would be safest for pt to go to a SNF. She states she will talk w/pt once she awakens. About 10 min later, KELSIE IRELAND informed that pt would like to this poem writer. KELSIE IRELAND to room again. Pt is awake now/resting in bed. Cousin remains @ bedside. Pt states she is willing to go to a SNF, she just does not want to go to [place]. She was made aware she will be given a list of SNF's in network w/her insurance. on , when SW returns and pre-cert can be initiated at that time. She voices understanding. Dr Prado notified of plan for SNF @ discharge. Delta MANLEY RN, CM
[2021-03-06] MEDS: Gabapentin 300 MG Capsule 900 MG PO ×2 (15:01→22:00)
[2021-03-06 17:00] LABS: Bedside Glucose 124 mg/dL (70-110)
[2021-03-06 20:26] LABS: Bedside Glucose 130 mg/dL (70-110)
[2021-03-06] MEDS: Atorvastatin Calcium 80 MG Tablet PO (22:00)
[2021-03-06] MEDS: Zolpidem Tartrate 5 MG Tablet PO (23:05)
[2021-03-07] VITALS (13 sets, daily range): BP systolic 123–150; BP diastolic 66–91; PULSE 88–107; RESP 18–20; TEMP 36.6–37.3; O2SAT 90–97
[2021-03-07] MEDS: Gabapentin 300 MG Capsule 900 MG PO ×3 (05:44→21:38)
[2021-03-07 06:24] LABS: Absolute Lymphocyte Count 1.73 X10^3/uL (0.83-4.51); Absolute Neutrophil Count 10.8 X10^3/uL (2.0-7.7); Basophil# 0.04 X10^3/uL; Basophil% 0.3 % (0-1); Eosinophil# 0.27 X10^3/uL; Hematocrit 27.3 % (37-47); Hemoglobin 8.7 g/dL (12.0-15.0); Lymphocyte # 1.73 X10^3/ul (0.83-4.51); Lymphocyte % 12.5 % (19-41); Mean Corp Hgb Conc 31.9 g/dL (32-36); Mean Corpuscular Hgb 28.5 pg (27.0-32.0); Mean Corpuscular Volume 89.5 fL (81-99); Mean Platelet Vol. 10.9 fl (6.2-12.0); Monocyte# 0.87 X10^3/uL; Monocyte% 6.3 % (0-10); NRBC Flagged by Analyzer 0 % (0-5); Neutrophil # 10.75 X10^3/uL (2.7-7.7); Neutrophil % 77.9 % (47-70); Platelet Count 329 K/mm3 (150-450); RBC Distribution Width SD 45.5 fl (35.1-43.9); Red Blood Count 3.05 M/mm3 (4.2-5.4); White Blood Count 13.8 K/mm3 (4.4-11.0)
[2021-03-07 06:50] LABS: Anion Gap 8 (5-15); BUN 41 mg/dL (7-18); BUN/Creat Ratio 23.7 RATIO (10-20); Chloride 107 mmol/L (98-107); Creatinine, Serum 1.73 mg/dL (0.55-1.02); EST Glomerular Filtration Rate 32 mL/min (>60); Est Glom Filt Rate - Afr Amer 39 mL/min (>60); Glucose 116 mg/dL (74-106); Sodium Level 140 mmol/L (136-145)
[2021-03-07] MEDS: Pramipexole Di-HCl 1 MG Tablet 1.5 MG PO ×2 (08:26→21:38)
[2021-03-07] MEDS: Isosorbide Mononitrate 30 MG Tablet PO (08:27)
[2021-03-07] MEDS: Aspirin 81 MG TAB.CHEW PO (08:27)
[2021-03-07] MEDS: Iron Polysaccharide Complex 150 MG CAPSULE PO (08:27)
[2021-03-07] MEDS: Heparin Injection (Vial) 5,000 UNIT/ML VIAL 5000 UNIT SC ×2 (08:28→21:38)
[2021-03-07] MEDS: Insulin Lispro 100 UNIT/ML INSULN.PEN 20 UNIT SC ×3 (08:28→18:45)
[2021-03-07] MEDS: Furosemide 40 MG/4 ML Vial IV (08:29)
[2021-03-07] MEDS: Acetaminophen 325 MG Tablet 650 MG PO ×2 (08:37→21:19)
[2021-03-07] MEDS: Glucerna Shake 120 ML LIQUID PO ×3 (08:37→18:45)
[2021-03-07] MEDS: Clopidogrel Bisulfate 75 MG Tablet PO (08:38)
[2021-03-07 09:36] LABS: Bedside Glucose 117 mg/dL (70-110)
--- NOTE | 2021-03-07 10:12 | PN_ITS ---
Subjective Subjective Patient seen and examined resting comfortably. Patient denies any new pedal complaints. Patient denies any nausea, fever, chills, chest pain, streaking, purulence, vomiting. Patient relates new cough Objective Data Objective Data Vital Signs: Vital Signs Temp Pulse Resp BP Pulse Ox 99.2 F H 102 H 20 H 150/76 H 95 03/07/21 08:24 03/07/21 08:24 03/07/21 08:24 03/07/21 08:24 03/07/21 08:24 Oxygen Flow Rate (L/min) 2 Oxygen Delivery Method Nasal Cannula Weight: 88 kg Body Mass Index (BMI) 31.3 Intake & Output: Intake and Output for Last 24 Hours 03/05/21 03/06/21 03/07/21 23:59 23:59 23:59 Intake Total 4219.08 / 4219.08 1871.67 / 1871.67 120 / 120 Output Total 1250 / 1650 1750 / 1750 Balance 2969.08 / 2569.08 121.67 / 121.67 120 / 120 Lab / Micro Data Result Diagrams: 03/07/21 06:00 03/07/21 06:00 Labs: Laboratory Results - last 24 hr 03/06/21 03/06/21 03/06/21 07:45 10:13 11:58 WBC RBC Hgb Hct MCV MCH MCHC RDW Std Deviation RDW Coeff of Fior Plt Count MPV Immature Gran % (Auto) Neut % (Auto) Lymph % (Auto) [place] % (Auto) Eos % (Auto) Baso % (Auto) Absolute Neuts (auto) Absolute Lymphs (auto) Nucleated RBC % Sodium Potassium Chloride Carbon Dioxide Anion Gap BUN Creatinine Estim Creat Clear Calc Est GFR (MDRD) Af Amer Est GFR (MDRD) Non-Af BUN/Creatinine Ratio Glucose Calcium Troponin I < 0.015 S.aureus Protein A PCR POSITIVE H MRSA (PCR) Negative POC Glucose 230 H 03/06/21 03/06/21 03/06/21 12:30 15:50 16:56 WBC RBC Hgb Hct MCV MCH MCHC RDW Std Deviation RDW Coeff of Fior Plt Count MPV Immature Gran % (Auto) Neut % (Auto) Lymph % (Auto) [place] % (Auto) Eos % (Auto) Baso % (Auto) Absolute Neuts (auto) Absolute Lymphs (auto) Nucleated RBC % Sodium Potassium Chloride Carbon Dioxide Anion Gap BUN Creatinine Estim Creat Clear Calc Est GFR (MDRD) Af Amer Est GFR (MDRD) Non-Af BUN/Creatinine Ratio Glucose Calcium Troponin I < 0.015 0.019 S.aureus Protein A PCR MRSA (PCR) POC Glucose 124 H 03/06/21 03/07/21 03/07/21 20:04 06:00 06:00 WBC 13.8 H RBC 3.05 L Hgb 8.7 L Hct 27.3 L MCV 89.5 MCH 28.5 MCHC 31.9 L RDW Std Deviation 45.5 H RDW Coeff of Fior 14.0 Plt Count 329 MPV 10.9 Immature Gran % (Auto) 1.000 H Neut % (Auto) 77.9 H Lymph % (Auto) 12.5 L [place] % (Auto) 6.3 Eos % (Auto) 2.0 Baso % (Auto) 0.3 Absolute Neuts (auto) 10.8 H Absolute Lymphs (auto) 1.73 Nucleated RBC % 0 Sodium 140 Potassium 4.0 Chloride 107 Carbon Dioxide 25.0 Anion Gap 8 BUN 41 H Creatinine 1.73 H Estim Creat Clear Calc 34.40 Est GFR (MDRD) Af Amer 39 L Est GFR (MDRD) Non-Af 32 L BUN/Creatinine Ratio 23.7 H Glucose 116 H Calcium 9.0 Troponin I S.aureus Protein A PCR MRSA (PCR) POC Glucose 130 H 03/07/21 08:19 WBC RBC Hgb Hct MCV MCH MCHC RDW Std Deviation RDW Coeff of Fior Plt Count MPV Immature Gran % (Auto) Neut % (Auto) Lymph % (Auto) [place] % (Auto) Eos % (Auto) Baso % (Auto) Absolute Neuts (auto) Absolute Lymphs (auto) Nucleated RBC % Sodium Potassium Chloride Carbon Dioxide Anion Gap BUN Creatinine Estim Creat Clear Calc Est GFR (MDRD) Af Amer Est GFR (MDRD) Non-Af BUN/Creatinine Ratio Glucose Calcium Troponin I S.aureus Protein A PCR MRSA (PCR) POC Glucose 117 H Micro: Microbiology 03/05/21 09:25 Wound - Left Foot Gram Stain - Final 03/05/21 09:25 Wound - Left Foot Wound Culture - Preliminary Gram negative elinor Gram negative elinor#2 Gram negative elinor#3 Staphylococcus aureus Beta streptococcus Gram positive eilnor 03/05/21 09:25 Wound - Left Foot Anaerobic Culture - Preliminary Checking for anaerobes, further studies to follow. 03/06/21 07:45 Wound - Right Foot Gram Stain - Final 03/03/21 21:45 Blood Culture (Wb) - Left Hand Blood Culture - Preliminary No growth in 48 hours. 03/03/21 19:55 Blood Culture (Wb) - Anticubital Left Blood Culture - Preliminary No growth in 48 hours. 03/03/21 20:30 Urine, Clean Catch Urine Culture - Final Mixed Gram Positive Organisms 03/03/21 23:10 Stool Stool Lactoferrin - Final 03/03/21 23:10 Stool Enteric Bacteriology - Final 03/03/21 23:10 Stool C. difficile DNA Amplification - Final 03/03/21 19:55 Mucosa - Nasopharyngeal Influenza Types A,B Direct FA (MIKE) - Final 03/03/21 19:55 Mucosa - Nasopharyngeal SARS-CoV-2 Antigen (Rapid) - Final Physical Exam Const alert General Appearance: cooperative Extremity normal capillary refill and no calf tenderness General Extremity: edema bilateral lower extremity, no tenderness to palpation of joints or extremities and other findings Other Details: Capillary refill time less than 3 seconds noted to digits ; Negative for clubbing or cyanosis Peripheral Pulses: Yes posterior tibial pulses present bilateral diminished and dorsalis pedis pulses present bilateral diminished Skin General Skin Exam: atrophy and dry skin; Negative for ecchymosis, erythema, eschar, pallor or dermatitis Rashes: no rashes Wounds: wounds noted Wound Narrative: plantar left foot ulceration appears improved than upon examination yesterday with significantly less surrounding maceration noted. There is no erythema or edema or malodor or purulence or other suggestion signs of infection. Wound is to the level of muscle/fat Right foot has an increase in erythema to plantar foot a periwound. There is less edema noted today upon examination. There is also more normal temperature noted. No purulent drainage expressed from wound. There is 1 area of concern around the plantar fifth styloid process area of potential deeper area. There is mild area of fluctuation at this area which is possibly the abscess seen on MRI images from her chronic Charcot changes to her foot. Does not probe deep. To the level of fascia. There is no pain to palpation of movement of this joint. Muscle strength is intact. Patient is less tender today compared to previous examination. 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 Charcot foot deformity noted bilaterally. Neuro Sensory Exam: extremities light-touch: decreased Motor Exam: strength abnormal other (4/5 to all pedal muscle groups) Psych Appearance: appropriate Assessment & Plan Assessment/Plan (1) Charcot's joint of right foot: (2) Non-pressure chronic ulcer of other part of left foot with fat layer exposed: (3) Sepsis: QUALIFIERS: Acute renal failure type: unspecified Sepsis acute organ dysfunction status: with acute organ dysfunction Sepsis type: sepsis due to unspecified organism Severe sepsis acute organ dysfunction type: acute renal failure Severe sepsis shock status: without septic shock Qualified Code(s): A41.9 - Sepsis, unspecified organism; R65.20 - Severe sepsis without septic shock; N17.9 - Acute kidney failure, unspecified (4) [id number] kidney injury: QUALIFIERS: Acute renal failure type: unspecified Chronic kidney disease stage: stage 3 (moderate) Chronic kidney disease stage 3 subtype: stage 3a (GFR 45-59) Qualified Code(s): N17.9 - Acute kidney failure, unspecified; N18.31 - Chronic kidney disease, stage 3a (5) Gastroenteritis: (6) Delayed wound healing: (7) Amputation foot, bilat: (8) Charcot's joint of left foot: (9) Type 2 diabetes mellitus with diabetic polyneuropathy: QUALIFIERS: Diabetes mellitus [facility] insulin use: with [facility] use Qualified Code(s): E11.42 - Type 2 diabetes mellitus with diabetic polyneuropathy; Z79.4 - terminal carman (current) use of insulin (10) Non-pressure chronic 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 layer exposed: PLAN: Patient seen and examined bedside patient is showing some mild agit ation and states that she is having problems catching her breath There is concern for acute Charcot event to the right foot. There is significant increase in edema and temperature to the right foot compared to her baseline. Examination is consistent with Charcot foot presentation. Discussed with patient the importance of nonweightbearing to this foot. Patient understands and is agreeable. X-rays were reviewed consistent with Charcot changes to the midfoot. Patient has history of Charcot event to this foot in the past. MRI was also reviewed also consistent with Charcot changes. There is also noted to be an abscess to the plantar fifth metatarsal base. New wound to right foot does not seem to communicate with this abscess. No purulent drainage was expressed. Cultures from left foot wound are polymicrobial. Cultures from right foot wound pending. Patient noted to still have leukocytosis. Upon discussion with hospitalist there is concern that this is from GI issues more so than foot infection. Also discussed possibility of getting bone biopsies to confirm Charcot diagnosis with hospitalist Dr. Prado reviewed. It was determined that these were not necessary. No podiatry surgical plans at this time. Patient is less hemoglobin A1c on 12/29/2020 was 13.1 patient noted to have very poor blood glucose control and can range anywhere from around 60 to over 500 Due to concern for acute Charcot event to the right foot I recommend nonweightbearing to her right foot at this time. Discussed this with the patient. Discussed that any weightbearing can further exacerbate Charcot foot deformity. With ulceration to left foot is also not advisable for patient to weight-bear on her left foot. Recommend patient be wheelchair-bound. If patient needs to pivot to transfer can put weight through heel on left foot. It is noted that ultrasound for patient was noted to be negative for DVTs. Continue daily dressing changes of left foot consists are still silver alginate, 4 x 4's, Kerlix, [place] wrap to bilateral feet Continue antibiotics All questions answered Podiatry will continue to follow Thank you for the consult please contact if any questions or concerns Joana Cuevas DPM [facility] [phone] This note was generated with [employer] dictation software. It may contain incorrect words, spelling, and punctuation that were not noted in checking the note before signing.
[2021-03-07] MEDS: Linezolid 600 MG 600 MG/300 ML BAG 200 MG IV ×2 (10:56→21:19)
[2021-03-07] MEDS: 0.9% Saline Lock 10 ML Syringe IV (10:59)
[2021-03-07 11:20] LABS: Bedside Glucose 146 mg/dL (70-110)
--- NOTE | 2021-03-07 13:31 | PN.HOSP_ITS ---
Subjective Subjective Feeling much better today. Breathing better. Currently on room air. Objective Data Objective Data Vital Signs: Vital Signs Temp Pulse Resp BP Pulse Ox 36.6 C 101 H 18 132/66 H 91 03/07/21 13:07 03/07/21 13:07 03/07/21 13:07 03/07/21 13:07 03/07/21 13:07 Oxygen Flow Rate (L/min) 2 Oxygen Delivery Method Room Air Weight: 88 kg Body Mass Index (BMI) 31.3 Intake & Output: Intake and Output for Last 24 Hours 03/05/21 03/06/21 03/07/21 23:59 23:59 23:59 Intake Total 4219.08 / 4219.08 1871.67 / 1871.67 420 / 420 Output Total 1250 / 1650 1750 / 1750 Balance 2969.08 / 2569.08 121.67 / 121.67 420 / 420 Lab / Micro Data Result Diagrams: 03/07/21 06:00 03/07/21 06:00 Labs: Laboratory Results - last 24 hr 03/06/21 03/06/21 03/06/21 15:50 16:56 20:04 WBC RBC Hgb Hct MCV MCH MCHC RDW Std Deviation RDW Coeff of Fior Plt Count MPV Immature Gran % (Auto) Neut % (Auto) Lymph % (Auto) [place] % (Auto) Eos % (Auto) Baso % (Auto) Absolute Neuts (auto) Absolute Lymphs (auto) Nucleated RBC % Sodium Potassium Chloride Carbon Dioxide Anion Gap BUN Creatinine Estim Creat Clear Calc Est GFR (MDRD) Af Amer Est GFR (MDRD) Non-Af BUN/Creatinine Ratio Glucose Calcium Troponin I 0.019 POC Glucose 124 H 130 H 03/07/21 03/07/21 03/07/21 06:00 06:00 08:19 WBC 13.8 H RBC 3.05 L Hgb 8.7 L Hct 27.3 L MCV 89.5 MCH 28.5 MCHC 31.9 L RDW Std Deviation 45.5 H RDW Coeff of Fior 14.0 Plt Count 329 MPV 10.9 Immature Gran % (Auto) 1.000 H Neut % (Auto) 77.9 H Lymph % (Auto) 12.5 L [place] % (Auto) 6.3 Eos % (Auto) 2.0 Baso % (Auto) 0.3 Absolute Neuts (auto) 10.8 H Absolute Lymphs (auto) 1.73 Nucleated RBC % 0 Sodium 140 Potassium 4.0 Chloride 107 Carbon Dioxide 25.0 Anion Gap 8 BUN 41 H Creatinine 1.73 H Estim Creat Clear Calc 34.40 Est GFR (MDRD) Af Amer 39 L Est GFR (MDRD) Non-Af 32 L BUN/Creatinine Ratio 23.7 H Glucose 116 H Calcium 9.0 Troponin I POC Glucose 117 H 03/07/21 11:03 WBC RBC Hgb Hct MCV MCH MCHC RDW Std Deviation RDW Coeff of Fior Plt Count MPV Immature Gran % (Auto) Neut % (Auto) Lymph % (Auto) [place] % (Auto) Eos % (Auto) Baso % (Auto) Absolute Neuts (auto) Absolute Lymphs (auto) Nucleated RBC % Sodium Potassium Chloride Carbon Dioxide Anion Gap BUN Creatinine Estim Creat Clear Calc Est GFR (MDRD) Af Amer Est GFR (MDRD) Non-Af BUN/Creatinine Ratio Glucose Calcium Troponin I POC Glucose 146 H Micro: Microbiology 03/06/21 07:45 Wound - Right Foot Gram Stain - Final 03/06/21 07:45 Wound - Right Foot Wound Culture - Preliminary Streptococcus group C Staphylococcus aureus 03/05/21 09:25 Wound - Left Foot Gram Stain - Final 03/05/21 09:25 Wound - Left Foot Wound Culture - Preliminary Gram negative elinor Gram negative elinor#2 Gram negative elinor#3 Staphylococcus aureus Beta streptococcus Gram positive elinor 03/05/21 09:25 Wound - Left Foot Anaerobic Culture - Preliminary Checking for anaerobes, further studies to follow. 03/03/21 21:45 Blood Culture (Wb) - Left Hand Blood Culture - Preliminary No growth in 48 hours. 03/03/21 19:55 Blood Culture (Wb) - Anticubital Left Blood Culture - Preliminary No growth in 48 hours. 03/03/21 20:30 Urine, Clean Catch Urine Culture - Final Mixed Gram Positive Organisms 03/03/21 23:10 Stool Stool Lactoferrin - Final 03/03/21 23:10 Stool Enteric Bacteriology - Final 03/03/21 23:10 Stool C. difficile DNA Amplification - Final 03/03/21 19:55 Mucosa - Nasopharyngeal Influenza Types A,B Direct FA (MIKE) - Final 03/03/21 19:55 Mucosa - Nasopharyngeal SARS-CoV-2 Antigen (Rapid) - Final Physical Exam Const alert HEENT Head and Scalp: normocephalic Resp normal respiratory effort and clear to auscultation bilaterally Cardio regular rate, regular rhythm, S1 normal heart sound and S2 normal heart sound GI normal to inspection, nondistended, normoactive bowel sounds, non-tender and non-distended Extremity Extremity Narrative: feet wrapped--did not remove. Psych affect normal Assessment & Plan Assessment/Plan (1) [id number]-[id number] kidney injury: QUALIFIERS: Acute renal failure type: unspecified Chronic kidney disease stage: stage 3 (moderate) Chronic kidney disease stage 3 subtype: stage 3a (GFR 45-59) Qualified Code(s): N17.9 - Acute kidney failure, unspecified; N18.31 - Chronic kidney disease, stage 3a (2) Gastroenteritis: (3) Sepsis: QUALIFIERS: Sepsis type: sepsis due to unspecified organism Sepsis acute organ dysfunction status: with acute organ dysfunction Severe sepsis acute organ dysfunction type: acute renal failure Acute renal failure type: unspecified Severe sepsis shock status: without septic shock Qualified Code(s): A41.9 - Sepsis, unspecified organism; R65.20 - Severe sepsis without septic shock; N17.9 - Acute kidney failure, unspecified PLAN: 1. Gastroenteritis * versus gastroparesis * Admit to [facility] with telemetry * Influenza and Covid, C.diff, enteric pathogens, fecal leuks negative * HLIV 2. right foot abscess * unroofed 03/06 * follow up cultures * on meropenem and linezolid * no osteo on MRI * Cx group C Strep and staph 3. sepsis * POA * 2/2 gastroenteritis and foot abscess 4. Acute HFpEF * improved * EF 55% from echo 12/29/2020 * start furosemide * overall positive 6.8 liters (though likely overestimated) * 03/07: change furosemide from IV to PO 40 BID 5. Acute on chronic kidney injury stage IIIa * Improved * Baseline creatinine 1.28 * monitor closely while on furosemide 4. 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 Essential hypertension * Patient placed on cardiac heart healthy diet along with consistent carb calorie controlled * Continue metoprolol, isosorbide. Will hold losartan at this time 6. Hyperlipidemia * Continue atorvastatin 7. Charcot feet * Seen by podiatry who feels pt has charcot event of the right foot. * Podiatry recs: NWB righ foot. Partial weight-bearing left foot. Recommended pt be wheelchair bound for the time being, but pivot transfer with left heel. 8. VTE prophylaxis-SQ heparin 9. CAD * s/p PCI to mid LAD lesion with DARA on 01/01/2021 * continue DAPT with HIS * if intervention needed. She cannot have her clopidogrel interrupted due to pos sibility of in-stent stenosis if it is held. Visit Charges Inpatient E&M: 78459 Subs Hosp L2
--- NOTE | 2021-03-07 13:56 | CASEMGMT ---
LUCRETIA Note: Referral Source: Social Work Referral Reason: SNF at discharge SW met with patient. SW provided with her with list of [facility] (SNF) and highlighted approved providers. Patient said she [facility] in [facility] past and would like to go there again. SW asked patient if she had the same insurance provider and she was unsure. SW advised that this underwriter mortgage loan can call [facility] to check and patient can follow up on Tuesday with assigned social work supervisor.Patient said that her 2nd choice is [facility] but stated I am not sure I can go there.. my daughter yelled at them. Patient said that she is assuming she can not go back there but no one has told her that. SW called [facility]. Staff unavailable regarding if they take patient's insurance. SW advised patient that staff will follow up with her on Tuesday. Plan: SNF at discharge. Patient provided with choice list of SNF and highlighted providers. Patient asked about [facility] and SW encouraged patient to look it up on her phone. Patient verbalized understanding. Sabine CANO
--- NOTE | 2021-03-07 16:22 | NURSING ---
Up to BSC to void and then encouraged pt to get up to chair. Sitting in Chair at this time.
[2021-03-07 16:55] LABS: Bedside Glucose 119 mg/dL (70-110)
[2021-03-07] MEDS: Furosemide 40 MG Tablet PO (18:44)
[2021-03-07] MEDS: Ondansetron 4 MG/2 ML Vial IV (21:19)
[2021-03-07] MEDS: Atorvastatin Calcium 80 MG Tablet PO (21:38)
[2021-03-07] MEDS: Benzonatate 100 MG Capsule PO (21:38)
[2021-03-07 22:36] LABS: Bedside Glucose 139 mg/dL (70-110)
[2021-03-07] MEDS: Zolpidem Tartrate 5 MG Tablet PO (22:54)
[2021-03-08] VITALS (12 sets, daily range): BP systolic 116–150; BP diastolic 63–97; PULSE 96–105; RESP 16–18; TEMP 36.7–37.2; O2SAT 90–97
[2021-03-08 06:04] LABS: Absolute Lymphocyte Count 1.77 X10^3/uL (0.83-4.51); Absolute Neutrophil Count 10.1 X10^3/uL (2.0-7.7); Basophil# 0.04 X10^3/uL; Basophil% 0.3 % (0-1); Eosinophil# 0.24 X10^3/uL; Eosinophils% 1.8 % (0-5); Lymphocyte # 1.77 X10^3/ul (0.83-4.51); Lymphocyte % 13.4 % (19-41); Mean Corp Hgb Conc 30.8 g/dL (32-36); Mean Corpuscular Volume 90.9 fL (81-99); Mean Platelet Vol. 11.2 fl (6.2-12.0); Monocyte# 0.84 X10^3/uL; Monocyte% 6.4 % (0-10); NRBC Flagged by Analyzer 0.2 % (0-5); Neutrophil % 76.5 % (47-70); Platelet Count 322 K/mm3 (150-450); RBC Distribution Width CV 13.9 % (11.6-14.6); RBC Distribution Width SD 46.5 fl (35.1-43.9); Red Blood Count 2.86 M/mm3 (4.2-5.4); White Blood Count 13.2 K/mm3 (4.4-11.0)
[2021-03-08] MEDS: Gabapentin 300 MG Capsule 900 MG PO ×3 (06:15→21:50)
[2021-03-08] MEDS: Benzonatate 100 MG Capsule PO ×3 (06:15→21:50)
[2021-03-08 06:29] LABS: Anion Gap 6 (5-15); BUN 47 mg/dL (7-18); BUN/Creat Ratio 27.6 RATIO (10-20); Chloride 107 mmol/L (98-107); EST Glomerular Filtration Rate 33 mL/min (>60); Est Glom Filt Rate - Afr Amer 40 mL/min (>60); Glucose 124 mg/dL (74-106); Potassium 3.9 mmol/L (3.5-5.1); Sodium Level 139 mmol/L (136-145)
[2021-03-08 06:51] LABS: Bedside Glucose 127 mg/dL (70-110)
[2021-03-08] MEDS: Aspirin 81 MG TAB.CHEW PO (08:31)
[2021-03-08] MEDS: Insulin Lispro 100 UNIT/ML INSULN.PEN 20 UNIT SC ×3 (08:32→17:04)
[2021-03-08] MEDS: Iron Polysaccharide Complex 150 MG CAPSULE PO (08:32)
--- NOTE | 2021-03-08 10:11 | PN_ITS ---
Subjective Subjective Patient seen and examined resting comfortably. Patient denies any new pedal complaints. Patient denies any nausea, fever, chills, chest pain, streaking, purulence, vomiting. Patient reports some shortness of breath and coughing while at rest. She is also currently experiencing some restless leg syndrome. Objective Data Objective Data Vital Signs: Vital Signs Temp Pulse Resp BP Pulse Ox 99.0 F 100 18 133/97 H 95 03/08/21 08:35 03/08/21 08:35 03/08/21 08:35 03/08/21 08:35 03/08/21 08:35 Oxygen Flow Rate (L/min) 2 Oxygen Delivery Method Room Air Weight: 88 kg Body Mass Index (BMI) 31.3 Intake & Output: Intake and Output for Last 24 Hours 03/06/21 03/07/21 03/08/21 23:59 23:59 23:59 Intake Total 1871.67 / 1871.67 1860 / 1860 370 / 370 Output Total 1750 / 1750 400 / 400 Balance 121.67 / 121.67 1460 / 1460 370 / 370 Lab / Micro Data Result Diagrams: 03/08/21 05:25 03/08/21 05:25 Labs: Laboratory Results - last 24 hr 03/07/21 03/07/21 03/07/21 11:03 16:14 21:33 WBC RBC Hgb Hct MCV MCH MCHC RDW Std Deviation RDW Coeff of Fior Plt Count MPV Immature Gran % (Auto) Neut % (Auto) Lymph % (Auto) [place] % (Auto) Eos % (Auto) Baso % (Auto) Absolute Neuts (auto) Absolute Lymphs (auto) Nucleated RBC % Sodium Potassium Chloride Carbon Dioxide Anion Gap BUN Creatinine Estim Creat Clear Calc Est GFR (MDRD) Af Amer Est GFR (MDRD) Non-Af BUN/Creatinine Ratio Glucose Calcium POC Glucose 146 H 119 H 139 H 03/08/21 03/08/21 03/08/21 05:25 05:25 06:10 WBC 13.2 H RBC 2.86 L Hgb 8.0 L Hct 26.0 L MCV 90.9 MCH 28.0 MCHC 30.8 L RDW Std Deviation 46.5 H RDW Coeff of Fior 13.9 Plt Count 322 MPV 11.2 Immature Gran % (Auto) 1.600 H Neut % (Auto) 76.5 H Lymph % (Auto) 13.4 L [place] % (Auto) 6.4 Eos % (Auto) 1.8 Baso % (Auto) 0.3 Absolute Neuts (auto) 10.1 H Absolute Lymphs (auto) 1.77 Nucleated RBC % 0.2 Sodium 139 Potassium 3.9 Chloride 107 Carbon Dioxide 26.0 Anion Gap 6 BUN 47 H Creatinine 1.70 H Estim Creat Clear Calc 35.00 Est GFR (MDRD) Af Amer 40 L Est GFR (MDRD) Non-Af 33 L BUN/Creatinine Ratio 27.6 H Glucose 124 H Calcium 9.0 POC Glucose 127 H Micro: Microbiology 03/05/21 09:25 Wound - Left Foot Gram Stain - Final 03/05/21 09:25 Wound - Left Foot Wound Culture - Final Providencia rettgeri Proteus mirabilis Staphylococcus aureus Streptococcus group C Gram positive elinor 03/05/21 09:25 Wound - Left Foot Anaerobic Culture - Final No anaerobic bacteria isolated. 03/06/21 07:45 Wound - Right Foot Gram Stain - Final 03/06/21 07:45 Wound - Right Foot Wound Culture - Preliminary Streptococcus group C Staphylococcus aureus 03/06/21 07:45 Wound - Right Foot Anaerobic Culture - Preliminary Checking for anaerobes, further studies to follow. 03/03/21 21:45 Blood Culture (Wb) - Left Hand Blood Culture - Preliminary No growth in 48 hours. 03/03/21 19:55 Blood Culture (Wb) - Anticubital Left Blood Culture - Preliminary No growth in 48 hours. 03/03/21 20:30 Urine, Clean Catch Urine Culture - Final Mixed Gram Positive Organisms 03/03/21 23:10 Stool Stool Lactoferrin - Final 03/03/21 23:10 Stool Enteric Bacteriology - Final 03/03/21 23:10 Stool C. difficile DNA Amplification - Final 03/03/21 19:55 Mucosa - Nasopharyngeal Influenza Types A,B Direct FA (MIKE) - Final 03/03/21 19:55 Mucosa - Nasopharyngeal SARS-CoV-2 Antigen (Rapid) - Final Physical Exam Const alert General Appearance: cooperative Extremity normal capillary refill and no calf tenderness General Extremity: edema bilateral lower extremity, no tenderness to palpation of joints or extremities and other findings Other Details: Capillary refill time less than 3 seconds noted to digits ; Negative for clubbing or cyanosis Skin General Skin Exam: atrophy and dry skin; Negative for ecchymosis, erythema, eschar, pallor or dermatitis Rashes: no rashes Wounds: wounds noted Wound Narrative: plantar left foot ulceration appears improved than upon examination yesterday with no surrounding maceration noted. There is no erythema or edema or malodor or purulence or other suggestion signs of infection. Wound is to the level of muscle/fat Right foot has an stable erythema to plantar foot periwound. There is less edema noted today upon examination. There is also more normal temperature noted. No purulent drainage expressed from wound. There is 1 area of concern around the plantar fifth styloid process area of potential deeper area. This area has most amount of slough and fibrous tissue noted. To the level of fascia. There is no pain to palpation of movement of this joint. Muscle strength is intact. Patient is less tender today compared to previous examination. 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 Charcot foot deformity noted b ilaterally. DP and PT are diminished bilaterally Neuro Sensory Exam: extremities light-touch: decreased Motor Exam: strength abnormal other (4/5 to all pedal muscle groups) Psych Appearance: appropriate Assessment & Plan Assessment/Plan (1) Charcot's joint of right foot: (2) Non-pressure chronic ulcer of other part of left foot with fat layer exposed: (3) Sepsis: QUALIFIERS: Sepsis type: sepsis due to unspecified organism Sepsis acute organ dysfunction status: with acute organ dysfunction Severe sepsis acute organ dysfunction type: acute renal failure Acute renal failure type: unspecified Severe sepsis shock status: without septic shock Qualified Code(s): A41.9 - Sepsis, unspecified organism; R65.20 - Severe sepsis without septic shock; N17.9 - Acute kidney failure, unspecified (4) [id number] kidney injury: QUALIFIERS: Acute renal failure type: unspecified Chronic kidney disease stage: stage 3 (moderate) Chronic kidney disease stage 3 subtype: stage 3a (GFR 45-59) Qualified Code(s): N17.9 - Acute kidney failure, unspecified; N18.31 - Chronic kidney disease, stage 3a (5) Gastroenteritis: (6) Delayed wound healing: (7) Amputation foot, bilat: (8) Charcot's joint of left foot: (9) Type 2 diabetes mellitus with diabetic polyneuropathy: QUALIFIERS: 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 Patient relates still having problems catching her breath and continues to cough. Relate improvement especially to the left foot wound due to patient's nonweightbearing status Wounds to bilateral feet are noted to be slightly better compared to exam yesterday. There is less erythema noted to the right foot ulcer There is concern for acute Charcot event to the right foot. Examination is consistent with Charcot foot presentation. Discussed with patient the importance of nonweightbearing to this foot. Patient understands and is agreeable. X-rays were reviewed consistent with Charcot changes to the midfoot. Patient has history of Charcot event to this foot in the past. MRI was also reviewed also consistent with Charcot changes. There is also noted to be an abscess to the plantar fifth metatarsal base. New wound to right foot does not seem to communicate with this abscess. No purulent drainage was expressed. Cultures from left foot wound are polymicrobial for Providencia rettgeri, Proteus mirabilis, Staphylococcus aureus, Strept group C, and gram pos elinor. Cultures from right foot wound are growing stept group C and Staph aureus. Patient noted to still have leukocytosis. Upon discussion with hospitalist there is concern that this is from gastroenteritis more so than foot infection. Also discussed possibility of getting bone biopsies to confirm Charcot diagnosis with hospitalist Dr. Prado reviewed. It was determined that these were not necessary. No podiatry surgical plans at this time. Patient is less hemoglobin A1c on 12/29/2020 was 13.1 patient noted to have very poor blood glucose control and can range anywhere from around 60 to over 500 Due to concern for acute Charcot event to the right foot I recommend nonweightbearing to her right foot at this time. Discussed this with the patient. Discussed that any weightbearing can further exacerbate Charcot foot deformity. With ulceration to left foot is also not advisable for patient to weight-bear on her left foot. Recommend patient be wheelchair-bound. If patient needs to pivot to transfer can put weight through heel on left foot. It is noted that ultrasound for patient was noted to be negative for DVTs. Continue daily dressing changes of left foot consists are still silver alginate, 4 x 4's, Kerlix, [place] wrap to bilateral feet Continue antibiotics All questions answered Podiatry will continue to follow To follow-up with me at the wound care center upon discharge on Tuesday Thank you for the consult please contact if any questions or concerns Joana Cuevas DPM [facility] [phone] This note was generated with [employer] dictation software. It may contain incorrect words, spelling, and punctuation that were not noted in checking the note before signing.
[2021-03-08] MEDS: Pramipexole Di-HCl 1 MG Tablet 1.5 MG PO ×2 (10:24→21:49)
[2021-03-08] MEDS: Linezolid 600 MG 600 MG/300 ML BAG 200 MG IV ×2 (10:24→21:50)
[2021-03-08] MEDS: Isosorbide Mononitrate 30 MG Tablet PO (10:25)
[2021-03-08] MEDS: Heparin Injection (Vial) 5,000 UNIT/ML VIAL 5000 UNIT SC ×2 (10:25→21:49)
[2021-03-08] MEDS: Furosemide 40 MG Tablet PO (10:25)
[2021-03-08] MEDS: Clopidogrel Bisulfate 75 MG Tablet PO (10:26)
[2021-03-08] MEDS: Glucerna Shake 120 ML LIQUID PO ×3 (10:30→17:08)
[2021-03-08] MEDS: oxyCODONE 5 MG Tablet PO (11:16)
[2021-03-08 11:20] LABS: Bedside Glucose 242 mg/dL (70-110)
[2021-03-08] MEDS: Insulin Lispro 100 UNIT/ML INSULN.PEN SC ×3 (12:02→21:51)
--- NOTE | 2021-03-08 12:30 | PN.HOSP_ITS ---
Subjective Subjective Asking about her mirapex. Breathing well. Objective Data Objective Data Vital Signs: Vital Signs Temp Pulse Resp BP Pulse Ox 37.2 C 100 18 133/97 H 95 03/08/21 08:35 03/08/21 11:10 03/08/21 08:35 03/08/21 08:35 03/08/21 08:35 Oxygen Flow Rate (L/min) 2 Oxygen Delivery Method Room Air Weight: 88 kg Body Mass Index (BMI) 31.3 Intake & Output: Intake and Output for Last 24 Hours 03/06/21 03/07/21 03/08/21 23:59 23:59 23:59 Intake Total 1871.67 / 1871.67 1860 / 1860 764.5 / 764.5 Output Total 1750 / 1750 400 / 400 Balance 121.67 / 121.67 1460 / 1460 764.5 / 764.5 Lab / Micro Data Attestation: I reviewed the patient's lab results. Result Diagrams: 03/08/21 05:25 03/08/21 05:25 Labs: Laboratory Results - last 24 hr 03/07/21 03/07/21 03/08/21 16:14 21:33 05:25 WBC 13.2 H RBC 2.86 L Hgb 8.0 L Hct 26.0 L MCV 90.9 MCH 28.0 MCHC 30.8 L RDW Std Deviation 46.5 H RDW Coeff of Fior 13.9 Plt Count 322 MPV 11.2 Immature Gran % (Auto) 1.600 H Neut % (Auto) 76.5 H Lymph % (Auto) 13.4 L [place] % (Auto) 6.4 Eos % (Auto) 1.8 Baso % (Auto) 0.3 Absolute Neuts (auto) 10.1 H Absolute Lymphs (auto) 1.77 Nucleated RBC % 0.2 Sodium Potassium Chloride Carbon Dioxide Anion Gap BUN Creatinine Estim Creat Clear Calc Est GFR (MDRD) Af Amer Est GFR (MDRD) Non-Af BUN/Creatinine Ratio Glucose Calcium POC Glucose 119 H 139 H 03/08/21 03/08/21 03/08/21 05:25 06:10 11:12 WBC RBC Hgb Hct MCV MCH MCHC RDW Std Deviation RDW Coeff of Fior Plt Count MPV Immature Gran % (Auto) Neut % (Auto) Lymph % (Auto) [place] % (Auto) Eos % (Auto) Baso % (Auto) Absolute Neuts (auto) Absolute Lymphs (auto) Nucleated RBC % Sodium 139 Potassium 3.9 Chloride 107 Carbon Dioxide 26.0 Anion Gap 6 BUN 47 H Creatinine 1.70 H Estim Creat Clear Calc 35.00 Est GFR (MDRD) Af Amer 40 L Est GFR (MDRD) Non-Af 33 L BUN/Creatinine Ratio 27.6 H Glucose 124 H Calcium 9.0 POC Glucose 127 H 242 H Micro: Microbiology 03/05/21 09:25 Wound - Left Foot Gram Stain - Final 03/05/21 09:25 Wound - Left Foot Wound Culture - Final Providencia rettgeri Proteus mirabilis Staphylococcus aureus Streptococcus group C Gram positive elinor 03/05/21 09:25 Wound - Left Foot Anaerobic Culture - Final No anaerobic bacteria isolated. 03/06/21 07:45 Wound - Right Foot Gram Stain - Final 03/06/21 07:45 Wound - Right Foot Wound Culture - Preliminary Streptococcus group C Staphylococcus aureus 03/06/21 07:45 Wound - Right Foot Anaerobic Culture - Preliminary Checking for anaerobes, further studies to follow. 03/03/21 21:45 Blood Culture (Wb) - Left Hand Blood Culture - Preliminary No growth in 48 hours. 03/03/21 19:55 Blood Culture (Wb) - Anticubital Left Blood Culture - Preliminary No growth in 48 hours. 03/03/21 20:30 Urine, Clean Catch Urine Culture - Final Mixed Gram Positive Organisms 03/03/21 23:10 Stool Stool Lactoferrin - Final 03/03/21 23:10 Stool Enteric Bacteriology - Final 03/03/21 23:10 Stool C. difficile DNA Amplification - Final 03/03/21 19:55 Mucosa - Nasopharyngeal Influenza Types A,B Direct FA (MIKE) - Final 03/03/21 19:55 Mucosa - Nasopharyngeal SARS-CoV-2 Antigen (Rapid) - Final Physical Exam Const alert HEENT Head and Scalp: normocephalic Resp normal respiratory effort and clear to auscultation bilaterally Cardio regular rate, regular rhythm, S1 normal heart sound and S2 normal heart sound GI normal to inspection, nondistended, normoactive bowel sounds, non-tender and non-distended Extremity normal to inspection Assessment & Plan Assessment/Plan (1) [id number]-[id number] kidney injury: QUALIFIERS: Acute renal failure type: unspecified Chronic kidney disease stage: stage 3 (moderate) Chronic kidney disease stage 3 subtype: stage 3a (GFR 45-59) Qualified Code(s): N17.9 - Acute kidney failure, unspecified; N18.31 - Chronic kidney disease, stage 3a (2) Gastroenteritis: (3) Sepsis: QUALIFIERS: Sepsis type: sepsis due to unspecified organism Sepsis acute organ dysfunction status: with acute organ dysfunction Severe sepsis acute organ dysfunction type: acute renal failure Acute renal failure type: unspecified Severe sepsis shock status: without septic shock Qualified Code(s): A41.9 - Sepsis, unspecified organism; R65.20 - Severe sepsis without septic shock; N17.9 - Acute kidney failure, unspecified PLAN: 1. Gastroenteritis * versus gastroparesis * Admit to [facility] with telemetry * Influenza and Covid, C.diff, enteric pathogens, fecal leuks negative * HLIV 2. right foot abscess * unroofed 03/06 * follow up cultures * on linezolid, dc meropenem. Start LVQ for left foot wound (showing Providencia, proteus, MSSA) * no osteo on MRI * Cx group C Strep and staph 3. sepsis * POA * 2/2 gastroenteritis and foot abscess 4. Acute HFpEF * improved * EF 55% from echo 12/29/2020 * start furosemide * overall positive 6.8 liters (though likely overestimated) * 03/07: change furosemide from IV to PO 40 BID 5. Acute on chronic kidney injury stage IIIa * Improved * Baseline creatinine 1.28 * monitor closely while on furosemide 4. 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 Essential hypertension * Patient placed on cardiac heart healthy diet along with consistent carb tristan hina controlled * Continue metoprolol, isosorbide. Will hold losartan at this time 6. Hyperlipidemia * Continue atorvastatin 7. Charcot feet * Seen by podiatry who feels pt has charcot event of the right foot. * Podiatry recs: [facility] righ foot. Partial weight-bearing left foot. Recommended pt be wheelchair bound for the time being, but pivot transfer with left heel. 8. VTE prophylaxis-SQ heparin 9. CAD * s/p PCI to mid LAD lesion with DARA on 01/01/2021 * continue DAPT with HIS * if intervention needed. She cannot have her clopidogrel interrupted due to possibility of in-stent stenosis if it is held. 10. DC planning for SNF upon discharge. Anticipate discharge-ready on 03/10. Visit Charges Inpatient E&M: 40739 Subs Hosp L2
[2021-03-08] MEDS: levoFLOXacin IV 750 MG/150 ML BAG 100 MG IV (14:28)
[2021-03-08 17:16] LABS: Bedside Glucose 154 mg/dL (70-110)
[2021-03-08 21:01] LABS: Bedside Glucose 128 mg/dL (70-110)
[2021-03-08] MEDS: Atorvastatin Calcium 80 MG Tablet PO (21:50)
[2021-03-08 22:06] LABS: Bedside Glucose 160 mg/dL (70-110)
[2021-03-08] MEDS: Zolpidem Tartrate 5 MG Tablet PO (23:42)
[2021-03-09] VITALS (13 sets, daily range): BP systolic 107–143; BP diastolic 62–88; PULSE 86–107; RESP 16–20; TEMP 37–37.9; O2SAT 92–98
[2021-03-09] MEDS: oxyCODONE 5 MG Tablet PO ×2 (00:28→15:20)
[2021-03-09 06:16] LABS: Absolute Lymphocyte Count 1.53 X10^3/uL (0.83-4.51); Absolute Neutrophil Count 8.8 X10^3/uL (2.0-7.7); Basophil# 0.04 X10^3/uL; Basophil% 0.3 % (0-1); Eosinophil# 0.22 X10^3/uL; Eosinophils% 1.9 % (0-5); Hematocrit 25.7 % (37-47); Hemoglobin 7.9 g/dL (12.0-15.0); Lymphocyte # 1.53 X10^3/ul (0.83-4.51); Lymphocyte % 13.1 % (19-41); Mean Corp Hgb Conc 30.7 g/dL (32-36); Mean Corpuscular Hgb 28.1 pg (27.0-32.0); Mean Corpuscular Volume 91.5 fL (81-99); Mean Platelet Vol. 10.9 fl (6.2-12.0); Monocyte# 0.87 X10^3/uL; Monocyte% 7.4 % (0-10); NRBC Flagged by Analyzer 0 % (0-5); Neutrophil # 8.83 X10^3/uL (2.7-7.7); Neutrophil % 75.3 % (47-70); Platelet Count 338 K/mm3 (150-450); RBC Distribution Width CV 13.9 % (11.6-14.6); Red Blood Count 2.81 M/mm3 (4.2-5.4); White Blood Count 11.7 K/mm3 (4.4-11.0)
[2021-03-09] MEDS: Gabapentin 300 MG Capsule 900 MG PO ×3 (06:39→21:22)
[2021-03-09 06:42] LABS: Anion Gap 8 (5-15); BUN 46 mg/dL (7-18); BUN/Creat Ratio 24.7 RATIO (10-20); Calcium,Total 8.9 mg/dL (8.5-10.1); Chloride 102 mmol/L (98-107); Creatinine, Serum 1.86 mg/dL (0.55-1.02); EST Glomerular Filtration Rate 30 mL/min (>60); Est Glom Filt Rate - Afr Amer 36 mL/min (>60); Estimated Creatinine Clearance 31.99 ml/min; Glucose 156 mg/dL (74-106); Potassium 4.5 mmol/L (3.5-5.1); Sodium Level 135 mmol/L (136-145)
[2021-03-09] MEDS: Benzonatate 100 MG Capsule PO ×2 (06:42→14:07)
[2021-03-09 07:00] LABS: Bedside Glucose 149 mg/dL (70-110)
--- NOTE | 2021-03-09 07:56 | PN_ITS ---
Subjective Subjective Patient seen and examined resting comfortably. Patient denies any new pedal complaints. Patient denies any nausea, fever, chills, chest pain, streaking, purulence, vomiting. Some coughing and shortness of breath remains Objective Data Objective Data Vital Signs: Vital Signs Temp Pulse Resp BP Pulse Ox 99.5 F H 88 20 H 137/62 H 96 03/09/21 02:40 03/09/21 07:00 03/09/21 02:40 03/09/21 02:40 03/09/21 02:40 Oxygen Flow Rate (L/min) 2 Oxygen Delivery Method Nasal Cannula Weight: 88 kg Body Mass Index (BMI) 31.3 Intake & Output: Intake and Output for Last 24 Hours 03/07/21 03/08/21 03/09/21 23:59 23:59 23:59 Intake Total 1860 / 1860 2070.5 / 2070.5 1118.75 / 1118.75 Output Total 400 / 400 500 / 500 Balance 1460 / 1460 2070.5 / 2070.5 618.75 / 618.75 Lab / Micro Data Result Diagrams: 03/09/21 05:15 03/09/21 05:15 Labs: Laboratory Results - last 24 hr 03/08/21 03/08/21 03/08/21 11:12 17:02 20:43 WBC RBC Hgb Hct MCV MCH MCHC RDW Std Deviation RDW Coeff of Fior Plt Count MPV Immature Gran % (Auto) Neut % (Auto) Lymph % (Auto) [place] % (Auto) Eos % (Auto) Baso % (Auto) Absolute Neuts (auto) Absolute Lymphs (auto) Nucleated RBC % Sodium Potassium Chloride Carbon Dioxide Anion Gap BUN Creatinine Estim Creat Clear Calc Est GFR (MDRD) Af Amer Est GFR (MDRD) Non-Af BUN/Creatinine Ratio Glucose Calcium POC Glucose 242 H 154 H 128 H 03/08/21 03/09/21 03/09/21 21:49 05:15 05:15 WBC 11.7 H RBC 2.81 L Hgb 7.9 L Hct 25.7 L MCV 91.5 MCH 28.1 MCHC 30.7 L RDW Std Deviation 47.0 H RDW Coeff of Fior 13.9 Plt Count 338 MPV 10.9 Immature Gran % (Auto) 2.000 H Neut % (Auto) 75.3 H Lymph % (Auto) 13.1 L [place] % (Auto) 7.4 Eos % (Auto) 1.9 Baso % (Auto) 0.3 Absolute Neuts (auto) 8.8 H Absolute Lymphs (auto) 1.53 Nucleated RBC % 0 Sodium 135 L Potassium 4.5 Chloride 102 Carbon Dioxide 25.0 Anion Gap 8 BUN 46 H Creatinine 1.86 H Estim Creat Clear Calc 31.99 Est GFR (MDRD) Af Amer 36 L Est GFR (MDRD) Non-Af 30 L BUN/Creatinine Ratio 24.7 H Glucose 156 H Calcium 8.9 POC Glucose 160 H 03/09/21 06:38 WBC RBC Hgb Hct MCV MCH MCHC RDW Std Deviation RDW Coeff of Fior Plt Count MPV Immature Gran % (Auto) Neut % (Auto) Lymph % (Auto) [place] % (Auto) Eos % (Auto) Baso % (Auto) Absolute Neuts (auto) Absolute Lymphs (auto) Nucleated RBC % Sodium Potassium Chloride Carbon Dioxide Anion Gap BUN Creatinine Estim Creat Clear Calc Est GFR (MDRD) Af Amer Est GFR (MDRD) Non-Af BUN/Creatinine Ratio Glucose Calcium POC Glucose 149 H Micro: Microbiology 03/03/21 21:45 Blood Culture (Wb) - Left Hand Blood Culture - Final No growth in 5 days. 03/03/21 19:55 Blood Culture (Wb) - Anticubital Left Blood Culture - Final No growth in 5 days. 03/05/21 09:25 Wound - Left Foot Gram Stain - Final 03/05/21 09:25 Wound - Left Foot Wound Culture - Final Providencia rettgeri Proteus mirabilis Staphylococcus aureus Streptococcus group C Gram positive elinor 03/05/21 09:25 Wound - Left Foot Anaerobic Culture - Final No anaerobic bacteria isolated. 03/06/21 07:45 Wound - Right Foot Gram Stain - Final 03/06/21 07:45 Wound - Right Foot Wound Culture - Preliminary Streptococcus group C Staphylococcus aureus 03/06/21 07:45 Wound - Right Foot Anaerobic Culture - Preliminary Checking for anaerobes, further studies to follow. 03/03/21 20:30 Urine, Clean Catch Urine Culture - Final Mixed Gram Positive Organisms 03/03/21 23:10 Stool Stool Lactoferrin - Final 03/03/21 23:10 Stool Enteric Bacteriology - Final 03/03/21 23:10 Stool C. difficile DNA Amplification - Final 03/03/21 19:55 Mucosa - Nasopharyngeal Influenza Types A,B Direct FA (MIKE) - Final 03/03/21 19:55 Mucosa - Nasopharyngeal SARS-CoV-2 Antigen (Rapid) - Final Physical Exam Const alert General Appearance: cooperative Extremity normal capillary refill and no calf tenderness General Extremity: edema bilateral lower extremity, no tenderness to palpation of joints or extremities and other findings Other Details: Capillary refill time less than 3 seconds noted to digits ; Negative for clubbing or cyanosis Skin General Skin Exam: atrophy and dry skin; Negative for ecchymosis, erythema, eschar, pallor or dermatitis Rashes: no rashes Wounds: wounds noted Wound Narrative: plantar left foot ulceration appears improved than upon examination yesterday with no surrounding maceration noted. There is no erythema or edema or malodor or purulence or other suggestion signs of infection. Wound is to the level of muscle/fat. Serous drainage noted. Right foot has improved erythema to plantar foot periwound. There is less edema noted today upon examination. There is also more normal temperature noted. No purulent drainage expressed from wound. There is 1 area of concern around the plantar fifth styloid process area of potential deeper area. This area has most amount of slough and fibrous tissue noted. This is also the area of most edema no appreciable absence is felt. To the level of fascia. There is no pain to palpation of movement of this joint. Muscle strength is intact. Patient is less tender today compared to previous examination. Serous drainage noted. 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 Charcot foot deformity noted bilaterally. DP and PT are diminished bilaterally Neuro Sensory Exam: extremities light-touch: decreased Motor Exam: strength abnormal other (4/5 to all pedal muscle groups) Psych Appearance: appropriate Assessment & Plan Assessment/Plan (1) Charcot's joint of right foot: (2) Non-pressure chronic ulcer of other part of left foot with fat layer exposed: (3) Sepsis: QUALIFIERS: Acute renal failure type: unspecified Sepsis acute organ dysfunction status: with acute organ dysfunction Sepsis type: sepsis due to unspecified organism Severe sepsis acute organ dysfunction type: acute renal failure Severe sepsis shock status: without septic shock Qualified Code(s): A41.9 - Sepsis, unspecified organism; R65.20 - Severe sepsis without septic shock; N17.9 - Acute kidney failure, unspecified (4) [id number] kidney injury: QUALIFIERS: Acute renal failure type: unspecified Chronic kidney disease stage: stage 3 (moderate) Chronic kidney disease stage 3 subtype: stage 3a (GFR 45-59) Qualified Code(s): N17.9 - Acute kidney failure, unspecified; N18.31 - Chronic kidney disease, stage 3a (5) Gastroenteritis: (6) Delayed wound healing: (7) Amputation foot, bilat: (8) Charcot's joint of left foot: (9) Type 2 diabetes mellitus with diabetic polyneuropathy: QUALIFIERS: Diabetes mellitus intermodal dispatcher insulin use: with jail use Qualified Code(s): E11.42 - Type 2 diabetes mellitus with diabetic polyneuropathy; Z79.4 - MCC (current) use of insulin (10) Non-pressure chronic 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 layer exposed: (11) Cellulitis of right foot: PLAN: Patient seen and examined bedside Wounds to bilateral feet are noted to be slightly better compared to exam yesterday. There is less erythema noted to the right foot ulcer. Improvement of chronic left foot ulceration noted upon this admission is most likely due to patient's adherence to nonweightbearing while in the hospital There is concern for acute Charcot event to the right foot. Examination is consistent with Charcot foot presentation. Discussed with patient the importance of nonweightbearing to this foot. Patient understands and is agreeable. X-rays were reviewed consistent with Charcot changes to the midfoot. Patient has history of Charcot event to this foot in the past. MRI was also reviewed also consistent with Charcot changes. There is also noted to be an abscess to the plantar fifth metatarsal base. New wound to right foot does not seem to communicate with this abscess. No purulent drainage was expressed. Cultures from left foot wound are polymicrobial for Providencia rettgeri, Proteus mirabilis, Staphylococcus aureus, Strept group C, and gram pos elinor. Cultures from right foot wound are growing stept group C and Staph aureus. Patient noted to still have leukocytosis which is improved. Upon discussion with hospitalist there is concern that this is from gastroenteritis more so than foot infection. Also discussed possibility of getting bone biopsies to confirm Charcot diagnosis with hospitalist Dr. Prado reviewed. It was determined that these were not necessary. No podiatry surgical plans at this time. Patient is last hemoglobin A1c on 12/29/2020 was 13.1 patient noted to have very poor blood glucose control and can range anywhere from around 60 to over 500 Due to concern for acute Charcot event to the right foot I recommend nonweightbearing to her right foot at this time. Discussed this with the patient. Discussed that any weightbearing can further exacerbate Charcot foot deformity. With ulceration to left foot is also not advisable for patient to weight-bear on her left foot. Recommend patient be wheelchair-bound. If patient needs to pivot to transfer can put weight through heel on left foot. It is noted that ultrasound for patient was noted to be negative for DVTs. Continue bilateral daily dressing changes of feet consisting of silver alginate, 4 x 4's, Kerlix, [place] wrap to bilateral feet Continue antibiotics All questions answered Podiatry will continue to follow To follow-up with me at the wound care center upon discharge Thank you for the consult please contact if any questions or concerns Joana Cuevas DPM [facility] [phone] This note was generated with [employer] dictation software. It may contain incorrect words, spelling, and punctuation that were not noted in checking the note before signing.
[2021-03-09] MEDS: Iron Polysaccharide Complex 150 MG CAPSULE PO (08:51)
[2021-03-09] MEDS: Aspirin 81 MG TAB.CHEW PO (08:51)
[2021-03-09] MEDS: Insulin Lispro 100 UNIT/ML INSULN.PEN 20 UNIT SC ×3 (08:51→17:11)
[2021-03-09] MEDS: Heparin Injection (Vial) 5,000 UNIT/ML VIAL 5000 UNIT SC ×2 (08:52→21:22)
[2021-03-09] MEDS: Isosorbide Mononitrate 30 MG Tablet PO (08:52)
[2021-03-09] MEDS: Pramipexole Di-HCl 1 MG Tablet 1.5 MG PO ×2 (08:53→21:22)
[2021-03-09] MEDS: Furosemide 40 MG Tablet PO (08:53)
[2021-03-09] MEDS: Clopidogrel Bisulfate 75 MG Tablet PO (08:54)
[2021-03-09] MEDS: 0.9% Saline Lock 10 ML Syringe IV ×3 (09:00→21:21)
[2021-03-09] MEDS: Linezolid 600 MG 600 MG/300 ML BAG 200 MG IV ×2 (09:05→21:18)
[2021-03-09 09:10] LABS: Bedside Glucose 161 mg/dL (70-110)
--- NOTE | 2021-03-09 09:55 | PCM.PN.HOSP ---
Subjective Subjective Patient is a 55-year-old lady admitted with generalized body aches, fever, nausea and vomiting and headache for 2 days. Evaluation was consistent with sepsis secondary to right foot abscess, started on broad-spectrum antibiotic therapy admitted to a monitored bed with consultation placed to podiatry. Objective Data Objective Data Vital Signs: Vital Signs Temp Pulse Resp BP Pulse Ox 98.6 F 86 16 128/73 H 96 03/09/21 08:46 03/09/21 08:46 03/09/21 08:46 03/09/21 08:46 03/09/21 09:00 Oxygen Flow Rate (L/min) 2 Oxygen Delivery Method Room Air Weight: 88 kg Body Mass Index (BMI) 31.3 Intake & Output: Intake and Output for Last 24 Hours 03/07/21 03/08/21 03/09/21 23:59 23:59 23:59 Intake Total 1860 / 1860 2070.5 / 2070.5 1118.75 / 1118.75 Output Total 400 / 400 500 / 500 Balance 1460 / 1460 2070.5 / 2070.5 618.75 / 618.75 Lab / Micro Data Result Diagrams: 03/09/21 05:15 03/09/21 05:15 Labs: Laboratory Results - last 24 hr 03/08/21 03/08/21 03/08/21 11:12 17:02 20:43 WBC RBC Hgb Hct MCV MCH MCHC RDW Std Deviation RDW Coeff of Fior Plt Count MPV Immature Gran % (Auto) Neut % (Auto) Lymph % (Auto) [place] % (Auto) Eos % (Auto) Baso % (Auto) Absolute Neuts (auto) Absolute Lymphs (auto) Nucleated RBC % Sodium Potassium Chloride Carbon Dioxide Anion Gap BUN Creatinine Estim Creat Clear Calc Est GFR (MDRD) Af Amer Est GFR (MDRD) Non-Af BUN/Creatinine Ratio Glucose Calcium POC Glucose 242 H 154 H 128 H 03/08/21 03/09/21 03/09/21 21:49 05:15 05:15 WBC 11.7 H RBC 2.81 L Hgb 7.9 L Hct 25.7 L MCV 91.5 MCH 28.1 MCHC 30.7 L RDW Std Deviation 47.0 H RDW Coeff of Fior 13.9 Plt Count 338 MPV 10.9 Immature Gran % (Auto) 2.000 H Neut % (Auto) 75.3 H Lymph % (Auto) 13.1 L [place] % (Auto) 7.4 Eos % (Auto) 1.9 Baso % (Auto) 0.3 Absolute Neuts (auto) 8.8 H Absolute Lymphs (auto) 1.53 Nucleated RBC % 0 Sodium 135 L Potassium 4.5 Chloride 102 Carbon Dioxide 25.0 Anion Gap 8 BUN 46 H Creatinine 1.86 H Estim Creat Clear Calc 31.99 Est GFR (MDRD) Af Amer 36 L Est GFR (MDRD) Non-Af 30 L BUN/Creatinine Ratio 24.7 H Glucose 156 H Calcium 8.9 POC Glucose 160 H 03/09/21 03/09/21 06:38 08:50 WBC RBC Hgb Hct MCV MCH MCHC RDW Std Deviation RDW Coeff of Fior Plt Count MPV Immature Gran % (Auto) Neut % (Auto) Lymph % (Auto) [place] % (Auto) Eos % (Auto) Baso % (Auto) Absolute Neuts (auto) Absolute Lymphs (auto) Nucleated RBC % Sodium Potassium Chloride Carbon Dioxide Anion Gap BUN Creatinine Estim Creat Clear Calc Est GFR (MDRD) Af Amer Est GFR (MDRD) Non-Af BUN/Creatinine Ratio Glucose Calcium POC Glucose 149 H 161 H Micro: Microbiology 03/06/21 07:45 Wound - Right Foot Gram Stain - Final 03/06/21 07:45 Wound - Right Foot Wound Culture - Final Streptococcus group C Staphylococcus aureus 03/06/21 07:45 Wound - Right Foot Anaerobic Culture - Preliminary Checking for anaerobes, further studies to follow. 03/03/21 21:45 Blood Culture (Wb) - Left Hand Blood Culture - Final No growth in 5 days. 03/03/21 19:55 Blood Culture (Wb) - Anticubital Left Blood Culture - Final No growth in 5 days. 03/05/21 09:25 Wound - Left Foot Gram Stain - Final 03/05/21 09:25 Wound - Left Foot Wound Culture - Final Providencia rettgeri Proteus mirabilis Staphylococcus aureus Streptococcus group C Gram positive elinor 03/05/21 09:25 Wound - Left Foot Anaerobic Culture - Final No anaerobic bacteria isolated. 03/03/21 20:30 Urine, Clean Catch Urine Culture - Final Mixed Gram Positive Organisms 03/03/21 23:10 Stool Stool Lactoferrin - Final 03/03/21 23:10 Stool Enteric Bacteriology - Final 03/03/21 23:10 Stool C. difficile DNA Amplification - Final 03/03/21 19:55 Mucosa - Nasopharyngeal Influenza Types A,B Direct FA (MIKE) - Final 03/03/21 19:55 Mucosa - Nasopharyngeal SARS-CoV-2 Antigen (Rapid) - Final Physical Exam Narrative GENERAL: cooperative HEENT: Atraumatic; EYES; Anicteric, Normal Conjunctiva NECK; supple, normal thyroid, RESPIRATORY: Diminished to auscultation CARDIOVASCULAR: Regular S1 S2, GI: soft, normoactive bowel sounds, : No Renal angle tenderness; EXTREMITIES: Both feet in dressing MUSCULOSKELETAL: no muscle waisting NEURO: Awake; no lateralizing signs. SKIN: No Rash PSYCH; Flat affect Assessment & Plan Assessment/Plan (1) Uiraq-zz-lblehnz kidney injury: QUALIFIERS: Acute renal failure type: unspecified Chronic kidney disease stage: stage 3 (moderate) Chronic kidney disease stage 3 subtype: stage 3a (GFR 45-59) Qualified Code(s): N17.9 - Acute kidney failure, unspecified; N18.31 - Chronic kidney disease, stage 3a (2) Gastroenteritis: (3) Sepsis: QUALIFIERS: Sepsis type: sepsis due to unspecified organism Sepsis acute organ dysfunction status: with acute organ dysfunction Severe sepsis acute organ dysfunction type: acute renal failure Acute renal failure type: unspecified Severe sepsis shock status: without septic shock Qualified Code(s): A41.9 - Sepsis, unspecified organism; R65.20 - Severe sepsis without septic shock; N17.9 - Acute kidney failure, unspecified PLAN: Patient is a 55-year-old lady admitted with generalized body aches, fever, nausea and vomiting and headache for 2 days. Evaluation was consistent with sepsis secondary to right foot abscess, started on broad-spectrum antibiotic therapy admitted to a monitored bed with consultation placed to podiatry. 1. Sepsis secondary to right foot abscess Microbiology as below. Patient on broad-spectrum antibiotic therapy with consultation placed to both podiatry and infectious disease Microbiology 03/06/21 07:45 Wound - Right Foot Wound Culture - Final Streptococcus group C Staphylococcus aureus 03/05/21 09:25 Wound - Left Foot Wound Culture - Final Providencia rettgeri Proteus mirabilis Staphylococcus aureus Streptococcus group C Gram positive elinor 2. Gastroenteritis ?Managed symptomatically. Cultures negative to date 3. Diabetes mellitus type II -With complications including suspected gastroparesis and polyneuropathy placed on long acting insulin, Accu-Cheks a.c. and at bedtime and covered with sliding scale insulin 4. Acute congestive heart failure with preserved ejection fraction ?Echo obtained on 12/29/20 demonstrated EF of 55%. Patient has since been managed with Lasix 5. Anemia - Secondary to chronic disorder monitoring H&H and transfuse if patient becomes symptomatic or hemoglobin falls below 7 6. Chronic kidney disease stage III ?Patient presented with impaired kidney function. Baseline creatinine 1.28 creatinine as of this morning 1.86. 7. Hypertension - Blood pressure controlled, home medications continued with dose adjustment as needed 8. Coronary artery disease -With PCI to mid LAD lesion with a DARA on 01/01/21. Patient is currently on dual antiplatelet therapy and high intensity statin 9. Dyslipidemia -Patient is on statin therapy, continued at home dose 10. Charcot feet -Was seen in consultation by podiatry recommendations reviewed 11. DVT prophylaxis - On enoxaparin 12. Physical deconditioning - Requested for PT OT eval and secondary social studies teacher to assist with discharge planning [employer] Codes Visit Charges Visit Charges: 86960 Subs Hosp L2
[2021-03-09] MEDS: Insulin Lispro 100 UNIT/ML INSULN.PEN SC (11:19)
[2021-03-09 11:26] LABS: Bedside Glucose 170 mg/dL (70-110)
[2021-03-09] MEDS: Glucerna Shake 120 ML LIQUID PO ×2 (14:07→16:46)
[2021-03-09] MEDS: Ondansetron 4 MG/2 ML Vial IV (14:11)
--- NOTE | 2021-03-09 16:41 | EKG12_ITS ---
Test Reason : CP Blood Pressure : / mmHG Vent. Rate : 097 BPM Atrial Rate : 097 BPM P-R Int : 144 ms QRS Dur : 086 ms QT Int : 352 ms P-R-T Axes : 061 029 019 degrees QTc Int : 447 ms Normal sinus rhythm Normal ECG Confirmed by ELEN DELVALLE, FELTON ([id number]), editor & co founder HARNII PHAM ([id number]) on 03/11/2021 1:22:36 PM Referred By: TERESSA Confirmed By:FELTON MYRICK MD
[2021-03-09 16:45] LABS: Bedside Glucose 135 mg/dL (70-110)
[2021-03-09] MEDS: Juven (unflavored) Packet 1 PACKET PO (16:47)
[2021-03-09] MEDS: Nitroglycerin (INPATIENT USE) 0.4 MG TAB.SUBL SL (17:10)
[2021-03-09] MEDS: Zolpidem Tartrate 5 MG Tablet PO (21:22)
[2021-03-09] MEDS: Atorvastatin Calcium 80 MG Tablet PO (21:22)
[2021-03-09] MEDS: Acetaminophen 325 MG Tablet 650 MG PO (21:27)
[2021-03-09 21:31] LABS: Bedside Glucose 107 mg/dL (70-110)
[2021-03-10] VITALS (8 sets, daily range): BP systolic 135–143; BP diastolic 61–72; PULSE 83–104; RESP 18–20; TEMP 37–37.4; O2SAT 92–97
[2021-03-10] MEDS: Gabapentin 300 MG Capsule 900 MG PO ×3 (05:03→22:16)
[2021-03-10 07:07] LABS: Absolute Lymphocyte Count 1.41 X10^3/uL (0.83-4.51); Absolute Neutrophil Count 6.9 X10^3/uL (2.0-7.7); Basophil# 0.03 X10^3/uL; Basophil% 0.3 % (0-1); Eosinophils% 2.1 % (0-5); Hematocrit 23.4 % (37-47); Hemoglobin 7.3 g/dL (12.0-15.0); Lymphocyte # 1.41 X10^3/ul (0.83-4.51); Lymphocyte % 14.9 % (19-41); Mean Corp Hgb Conc 31.2 g/dL (32-36); Mean Corpuscular Hgb 28.5 pg (27.0-32.0); Mean Corpuscular Volume 91.4 fL (81-99); Mean Platelet Vol. 10.3 fl (6.2-12.0); Monocyte# 0.74 X10^3/uL; Monocyte% 7.8 % (0-10); NRBC Flagged by Analyzer 0 % (0-5); Neutrophil # 6.91 X10^3/uL (2.7-7.7); Platelet Count 304 K/mm3 (150-450); RBC Distribution Width CV 13.7 % (11.6-14.6); RBC Distribution Width SD 45.8 fl (35.1-43.9); Red Blood Count 2.56 M/mm3 (4.2-5.4); White Blood Count 9.5 K/mm3 (4.4-11.0)
[2021-03-10 07:32] LABS: Anion Gap 7 (5-15); BUN 49 mg/dL (7-18); BUN/Creat Ratio 26.6 RATIO (10-20); Calcium,Total 8.7 mg/dL (8.5-10.1); Chloride 103 mmol/L (98-107); Creatinine, Serum 1.84 mg/dL (0.55-1.02); EST Glomerular Filtration Rate 30 mL/min (>60); Est Glom Filt Rate - Afr Amer 37 mL/min (>60); Estimated Creatinine Clearance 32.34 ml/min; Glucose 167 mg/dL (74-106); Potassium 4.4 mmol/L (3.5-5.1); Sodium Level 138 mmol/L (136-145)
[2021-03-10] MEDS: Pramipexole Di-HCl 1 MG Tablet 1.5 MG PO ×2 (08:07→22:17)
[2021-03-10] MEDS: Clopidogrel Bisulfate 75 MG Tablet PO (08:07)
[2021-03-10] MEDS: Furosemide 40 MG Tablet PO (08:07)
[2021-03-10] MEDS: Isosorbide Mononitrate 30 MG Tablet PO (08:07)
[2021-03-10] MEDS: Iron Polysaccharide Complex 150 MG CAPSULE PO (08:07)
[2021-03-10] MEDS: Glucerna Shake 120 ML LIQUID PO ×3 (08:07→18:07)
[2021-03-10] MEDS: Aspirin 81 MG TAB.CHEW PO (08:07)
[2021-03-10] MEDS: Heparin Injection (Vial) 5,000 UNIT/ML VIAL 5000 UNIT SC ×2 (08:08→22:18)
--- NOTE | 2021-03-10 08:08 | PN_ITS ---
Subjective Subjective Patient was seen this morning for follow up on bilateral foot ulcerations. She relates there is pain to the right foot. She is resting in bed. She relates she often forgets to take her diabetes medication when she is at home. She is afebrile, no chills, nausea or vomiting. Objective Data Objective Data Vital Signs: Vital Signs Temp Pulse Resp BP Pulse Ox 98.6 F 86 18 141/67 H 92 03/10/21 07:58 03/10/21 07:58 03/10/21 07:58 03/10/21 07:58 03/10/21 07:58 Oxygen Flow Rate (L/min) 2 Oxygen Delivery Method Room Air Weight: 88 kg Body Mass Index (BMI) 31.3 Intake & Output: Intake and Output for Last 24 Hours 03/08/21 03/09/21 03/10/21 23:59 23:59 23:59 Intake Total 2070.5 / 2070.5 2378.75 / 2578.75 200 / 200 Output Total 500 / 500 Balance 2070.5 / 2070.5 1878.75 / 2078.75 200 / 200 Lab / Micro Data Result Diagrams: 03/10/21 06:30 03/10/21 06:30 Labs: Laboratory Results - last 24 hr 03/09/21 03/09/21 03/09/21 08:50 11:18 16:39 WBC RBC Hgb Hct MCV MCH MCHC RDW Std Deviation RDW Coeff of Fior Plt Count MPV Immature Gran % (Auto) Neut % (Auto) Lymph % (Auto) [place] % (Auto) Eos % (Auto) Baso % (Auto) Absolute Neuts (auto) Absolute Lymphs (auto) Nucleated RBC % Sodium Potassium Chloride Carbon Dioxide Anion Gap BUN Creatinine Estim Creat Clear Calc Est GFR (MDRD) Af Amer Est GFR (MDRD) Non-Af BUN/Creatinine Ratio Glucose Calcium Troponin I POC Glucose 161 H 170 H 135 H 03/09/21 03/09/21 03/09/21 17:20 20:20 21:16 WBC RBC Hgb Hct MCV MCH MCHC RDW Std Deviation RDW Coeff of Fior Plt Count MPV Immature Gran % (Auto) Neut % (Auto) Lymph % (Auto) [place] % (Auto) Eos % (Auto) Baso % (Auto) Absolute Neuts (auto) Absolute Lymphs (auto) Nucleated RBC % Sodium Potassium Chloride Carbon Dioxide Anion Gap BUN Creatinine Estim Creat Clear Calc Est GFR (MDRD) Af Amer Est GFR (MDRD) Non-Af BUN/Creatinine Ratio Glucose Calcium Troponin I < 0.015 < 0.015 POC Glucose 107 03/09/21 03/10/21 03/10/21 23:55 06:30 06:30 WBC 9.5 RBC 2.56 L Hgb 7.3 L Hct 23.4 L MCV 91.4 MCH 28.5 MCHC 31.2 L RDW Std Deviation 45.8 H RDW Coeff of Fior 13.7 Plt Count 304 MPV 10.3 Immature Gran % (Auto) 1.900 H Neut % (Auto) 73.0 H Lymph % (Auto) 14.9 L [place] % (Auto) 7.8 Eos % (Auto) 2.1 Baso % (Auto) 0.3 Absolute Neuts (auto) 6.9 Absolute Lymphs (auto) 1.41 Nucleated RBC % 0 Sodium 138 Potassium 4.4 Chloride 103 Carbon Dioxide 28.0 Anion Gap 7 BUN 49 H Creatinine 1.84 H Estim Creat Clear Calc 32.34 Est GFR (MDRD) Af Amer 37 L Est GFR (MDRD) Non-Af 30 L BUN/Creatinine Ratio 26.6 H Glucose 167 H Calcium 8.7 Troponin I < 0.015 POC Glucose Micro: Microbiology 03/06/21 07:45 Wound - Right Foot Gram Stain - Final 03/06/21 07:45 Wound - Right Foot Wound Culture - Final Streptococcus group C Staphylococcus aureus 03/06/21 07:45 Wound - Right Foot Anaerobic Culture - Final No anaerobic bacteria isolated. 03/03/21 21:45 Blood Culture (Wb) - Left Hand Blood Culture - Final No growth in 5 days. 03/03/21 19:55 Blood Culture (Wb) - Anticubital Left Blood Culture - Final No growth in 5 days. 03/05/21 09:25 Wound - Left Foot Gram Stain - Final 03/05/21 09:25 Wound - Left Foot Wound Culture - Final Providencia rettgeri Proteus mirabilis Staphylococcus aureus Streptococcus group C Gram positive elinor 03/05/21 09:25 Wound - Left Foot Anaerobic Culture - Final No anaerobic bacteria isolated. 03/03/21 20:30 Urine, Clean Catch Urine Culture - Final Mixed Gram Positive Organisms 03/03/21 23:10 Stool Stool Lactoferrin - Final 03/03/21 23:10 Stool Enteric Bacteriology - Final 03/03/21 23:10 Stool C. difficile DNA Amplification - Final 03/03/21 19:55 Mucosa - Nasopharyngeal Influenza Types A,B Direct FA (MIKE) - Final 03/03/21 19:55 Mucosa - Nasopharyngeal SARS-CoV-2 Antigen (Rapid) - Final Physical Exam Const alert and oriented x3 General Appearance: cooperative Extremity normal capillary refill and no calf tenderness General Extremity: edema right and other findings Other Details: Capillary refill time less than 3 seconds noted to digits bilateral foot ; Negative for clubbing or cyanosis Skin Wounds: wounds noted Wound Narrative: Plantar left foot ulceration appears improved, no surrounding maceration noted. There is no erythema or edema or malodor or purulence or other suggestion signs of infection. Wound is to the level of muscle/fat. Right foot ulceration plantar lateral foot, there is surrounding erythema, also some erythema to the dorsal foot, there is some edema, there is nonviable tissue present to the ulceration site with some purulent drainage noted, ulcer down to the fascia layer, no probe to bone - there is no maloder, no fluctuance, no crepitus, no streaking. 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 Charcot foot deformity noted bilaterally. No areas of acute ischemia to the foot or ankle bilateral. Neuro Sensory Exam: extremities light-touch: decreased Motor Exam: strength abnormal other (4/5 to all pedal muscle groups) Psych Appearance: appropriate Assessment & Plan Assessment/Plan (1) Charcot's joint of right foot: (2) Non-pressure chronic ulcer of other part of left foot with fat layer exposed: (3) Sepsis: QUALIFIERS: Acute renal failure type: unspecified Sepsis acute organ dysfunction status: with acute organ dysfunction Sepsis type: sepsis due to unspecified organism Severe sepsis acute organ dysfunction type: acute renal failure Severe sepsis shock status: without septic shock Qualified Code(s): A41.9 - Sepsis, unspecified organism; R65.20 - Severe sepsis without septic shock; N17.9 - Acute kidney failure, unspecified (4) [id number] kidney injury: QUALIFIERS: Acute renal failure type: unspecified Chronic kidney disease stage: stage 3 (moderate) Chronic kidney disease stage 3 subtype: stage 3a (GFR 45-59) Qualified Code(s): N17.9 - Acute kidney failure, unspecified; N18.31 - Chronic kidney disease, stage 3a (5) Gastroenteritis: (6) Delayed wound healing: (7) Amputation foot, bilat: (8) Charcot's joint of left foot: (9) Type 2 diabetes mellitus with diabetic polyneuropathy: QUALIFIERS: Diabetes mellitus intermediate card tender insulin use: with intermediate card tender use Qualified Code(s): E11.42 - Type 2 diabetes mellitus with diabetic polyneuropathy; Z79.4 - residential (current) use of insulin (10) Non-pressure chronic 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 layer exposed: (11) Cellulitis of right foot: PLAN: Patient seen and examined bedside. Reviewed right foot MRI. There is evidence of Charcot neuroarthropathy. There is also noted findings consistent with possible abscess plantar lateral foot. Right foot ulceration was debrided in selective fashion removing nonviable tissue, ulceration tissue planes opened using a hemostat and debrided using 15 blade down to fascia layer, and was able to express small amount of purulence from the site. The remaining tissues are intact with no probe to bone or deeper tissues, there is no maloder, no fluctuance, no crepitus noted. Also of note - Patient's WBC is 9.5 today, patient is afebrile. Cultures have been obtained from both the right and left foot - results reviewed. Patient is on IV antibiotics, Dr. Tello from Infectious Disease has been consulted. Wound care right foot: pack with Iodoform gauze, and apply overlying Aquacel Ag, gauze, kerlix, abd pad and brando. Left foot: Aquacel Ag with overlying gauze, kerlix and brando dressing - change daily. Due acute Charcot event to the right foot nonweightbearing to her right foot has been recommended and advised. With ulceration to left foot is also not advisable for patient to weight-bear on her left foot. Recommend patient be wheelchair-bound. If patient needs to pivot to transfer can put weight through heel on left foot. Patient is last hemoglobin A1c was 13.1 on 12/29/2020 - patient noted to have overall very poor blood glucose control - reviewed the importance of proper blood sugar control to help optimize wound healing. Podiatry will continue to follow. To follow-up with Dr. Cuevas upon discharge. If patient is discharged to nursing facility today - recommend to patient she follow up with Dr[facility]ue[facility] for [facility] check, sooner if needed.
[2021-03-10] MEDS: Insulin Lispro 100 UNIT/ML INSULN.PEN SC ×3 (08:09→22:18)
[2021-03-10] MEDS: Insulin Lispro 100 UNIT/ML INSULN.PEN 20 UNIT SC ×2 (08:09→11:42)
[2021-03-10] MEDS: Acetaminophen 325 MG Tablet 650 MG PO (08:15)
[2021-03-10] MEDS: Linezolid 600 MG 600 MG/300 ML BAG 200 MG IV (08:19)
--- NOTE | 2021-03-10 09:02 | NURSING ---
wound photo: right foot
--- NOTE | 2021-03-10 09:03 | NURSING ---
skin photo: right dorsal foot
--- NOTE | 2021-03-10 09:03 | NURSING ---
wound photo: left foot
--- NOTE | 2021-03-10 09:04 | PCM.DC ---
Discharge Instructions Activity Weight Bearing Status: No weight bearing (Strict non weightbearing right foot. Can put weight on left heel only for transitions - otherwise no weightbearing left foot.) and - Keep extremity elevated above heart level: - (Keep feet elevated as much as possible, keep heels offloaded with pillows.) Dressing / Incision Call your doctor if your incision/area has: Continuous Slow Oozing, Sudden Increased Bleeding, Increased Pain/ Swelling, Increased Redness and Foul Smelling Discharge Call your doctor if you observe: Fever of 101 or Higher Cleanse incision/area with: - Additional Dressing/Incision Instructions:: Wound care right foot: cleanse with normal saline solution, pack deeper open areas plantar lateral foot with Iodoform gauze, and apply Aquacel Ag to rest of wound site with overlying gauze, kerlix, abd pad and myla. Left foot: Cleanse with normal saline solution. Apply Aquacel Ag with overlying gauze, kerlix and myla dressing - change daily. Follow Up Care Please Follow Up With: Joana Cuevas DPM When: Next Tuesday at wound center. Test Results: Test results from this visit will be discussed in further detail at your follow-up appointment, if applicable. Discharge Plan Admission Admit Date/Time: 03/03/21 21:49 Primary Reason for Your Visit: Sepsis secondary to right foot abscess Attending Provider: Rodney Yates Primary Care Provider: Raúl Eric Consulting Providers: Joana Cuevas ; Kike Tello Instructions Patient Instructions: ED Chest Pain, Noncardiac Additional Instructions / Restrictions: Patient Problems: Altered Health Status related to Hospitalization Patient Goals: *Optimal Level of Health *Keep Appointments *Medication Compliance *Remain SafeCleanse bilateral foot wounds daily with soap and water. pat dry. pack the central right plantar and right lateral foot wounds with iodoform gauze and place Aquacel AG to bilateral plantar foot wounds. cover with 4x4 gauze pads, ABD pads, and wrap with kerlix. apply MYLA wraps to help hold dressings in place. change daily and prn. Discharge Orders/Prescriptions Prescriptions: New acetaminophen [Tylenol] 325 mg Tablet 650 mg PO Q6H PRN PRN (Reason: Pain Score 1-10/Temp > 100.7 F) Qty: 0 RF: 0 levofloxacin 250 mg Tablet 250 mg PO DAILY@0600 Qty: 0 RF: 0 oxycodone 5 mg Tablet 5 mg PO Q6H PRN PRN (Reason: Pain Score 6-10) 3 Days Qty: 12 RF: 0 Artificial Tears(cd-[id number]) 1-0.2-0.2 % Drops 2 drp EACH EYE Q1H PRN (Reason: DRY EYES) Qty: 0 RF: 0 Glucerna 1.2 Howie 0.06-1.2 gram-kcal/mL Liquid 120 ml PO 4X/DAY Qty: 0 RF: 0 Ted (with collagen) 7-7-1.5 gram Powder In Packet 1 packet PO BIDCM Qty: 0 RF: 0 Continued atorvastatin 80 mg tablet 80 mg PO QHS Qty: 90 RF: 3 gabapentin 300 mg capsule 900 mg PO TID RF: 0 nitroglycerin 0.4 mg tablet, sublingual 0.4 mg SL Q5-15M PRN (Reason: chest pain) Qty: 25 RF: 3 insulin lispro 100 UNIT/ML insulin pen 20 unit SC TIDCM RF: 0 pramipexole 1 MG tablet 1.5 mg PO BID RF: 0 polysaccharide iron complex 150 MG capsule 150 mg PO DAILYCM RF: 0 paroxetine HCl 20 MG tablet 40 mg PO QHS RF: 0 insulin glargine 100 unit/mL (3 mL) insulin pen 30 unit SC DAILY RF: 0 aspirin 81 MG tablet,chewable 81 mg PO DAILY@0800 RF: 0 clopidogrel 75 MG tablet 75 mg PO DAILY Qty: 0 RF: 0 isosorbide mononitrate 30 mg tablet extended release 24 hr 30 mg PO DAILY RF: 0 Referrals / Follow Up: Joana Cuevas DPM [STAFF PHYSICIAN] - See Referral Note (at wound care center on Tuesday with Dr Cuevas [phone]) Raúl Eric MD [Primary Care Provider] - Within 2 Weeks Disposition Disposition (needs filled in before D/C Order can be placed): Long Term Facility
--- NOTE | 2021-03-10 10:02 | CASEMGMT ---
Addendum entered by Evie Kay 03/10/21 12:50: SW spoke Анна at [facility], she states they can take pt and will start precert. She asked about whether or not pt has been vaccinated for COVID. SW met w/pt, let her know that [facility] accepted her and they are working on precert. SW inquired if she has been vaccinated as it will impact visitation. She has had one vaccination, is not sure which one she has however, wondering about getting the second one at [facility]. SW encouraged her to call [facility] to find out which vaccine she received, as she would not be able to get a second dose at [facility] if what they have is a different kind. Pt states understanding. She also asked about getting back and forth to the wound healing center twice per week. SW explained will see if that is going to be needed or if she can get wound care at the senior living so wouldn't need to be going back and forth. SW reviewed discharge instructions from [facility]ator [facility], note states pt needs daily dressing changes, and has a follow up w/Dr. Cuevas on Tuesday. SW spoke keli/Lexie at [facility], they can do the daily dressing changes and they can arrange transport for pt to get back and forth to podiatry. If further follow up appointments are needed with podiatry or the wound healing center after this initial appointment, then [facility] can help w/the transport. SW informed pt of this, she states understanding. (SW did fax the discharge instructions from podiatry to [facility]). Pt also asked SW if her condition is serious. She states if the doctor writes a note stating her condition is serious and her needs to return to help care for her, then it may expedite the process of him return, she states he is in [place]. She states he wants to come back to help her. SW suggested to pt to find out exactly what the note needs to say, so that it can be helpful. Pt states understanding, is to let SW know what she finds out. SW will continue to follow, [facility] is plan, pending precert. FRANCISCO Elaine Original Note: SW spoke Alyssa rojo in admissions today at [facility], she states they take pt's insurance. SW faxed referral. SW did also call pt's second choice, [facility], to inquire about bed availability if [facility] cannot take pt. Message left. FRANCISCO Elaine
[2021-03-10] MEDS: levoFLOXacin IV 750 MG/150 ML BAG 100 MG IV (10:05)
--- NOTE | 2021-03-10 10:35 | PN.HOSP_ITS ---
Subjective Subjective Patient seen, did develop chest pain the day prior serial cardiac enzymes and EKG came back negative. Objective Data Objective Data Vital Signs: Vital Signs Temp Pulse Resp BP Pulse Ox 98.6 F 86 18 141/67 H 92 03/10/21 07:58 03/10/21 07:58 03/10/21 07:58 03/10/21 07:58 03/10/21 07:58 Oxygen Flow Rate (L/min) 2 Oxygen Delivery Method Room Air Weight: 88 kg Body Mass Index (BMI) 31.3 Intake & Output: Intake and Output for Last 24 Hours 03/08/21 03/09/21 03/10/21 23:59 23:59 23:59 Intake Total 2070.5 / 2070.5 2378.75 / 2578.75 500 / 500 Output Total 500 / 500 Balance 2070.5 / 2070.5 1878.75 / 2078.75 500 / 500 Lab / Micro Data Result Diagrams: 03/10/21 06:30 03/10/21 06:30 Labs: Laboratory Results - last 24 hr 03/09/21 03/09/21 03/09/21 11:18 16:39 17:20 WBC RBC Hgb Hct MCV MCH MCHC RDW Std Deviation RDW Coeff of Fior Plt Count MPV Immature Gran % (Auto) Neut % (Auto) Lymph % (Auto) [place] % (Auto) Eos % (Auto) Baso % (Auto) Absolute Neuts (auto) Absolute Lymphs (auto) Nucleated RBC % Sodium Potassium Chloride Carbon Dioxide Anion Gap BUN Creatinine Estim Creat Clear Calc Est GFR (MDRD) Af Amer Est GFR (MDRD) Non-Af BUN/Creatinine Ratio Glucose Calcium Troponin I < 0.015 POC Glucose 170 H 135 H 03/09/21 03/09/21 03/09/21 20:20 21:16 23:55 WBC RBC Hgb Hct MCV MCH MCHC RDW Std Deviation RDW Coeff of Fior Plt Count MPV Immature Gran % (Auto) Neut % (Auto) Lymph % (Auto) [place] % (Auto) Eos % (Auto) Baso % (Auto) Absolute Neuts (auto) Absolute Lymphs (auto) Nucleated RBC % Sodium Potassium Chloride Carbon Dioxide Anion Gap BUN Creatinine Estim Creat Clear Calc Est GFR (MDRD) Af Amer Est GFR (MDRD) Non-Af BUN/Creatinine Ratio Glucose Calcium Troponin I < 0.015 < 0.015 POC Glucose 107 03/10/21 03/10/21 06:30 06:30 WBC 9.5 RBC 2.56 L Hgb 7.3 L Hct 23.4 L MCV 91.4 MCH 28.5 MCHC 31.2 L RDW Std Deviation 45.8 H RDW Coeff of Fior 13.7 Plt Count 304 MPV 10.3 Immature Gran % (Auto) 1.900 H Neut % (Auto) 73.0 H Lymph % (Auto) 14.9 L [place] % (Auto) 7.8 Eos % (Auto) 2.1 Baso % (Auto) 0.3 Absolute Neuts (auto) 6.9 Absolute Lymphs (auto) 1.41 Nucleated RBC % 0 Sodium 138 Potassium 4.4 Chloride 103 Carbon Dioxide 28.0 Anion Gap 7 BUN 49 H Creatinine 1.84 H Estim Creat Clear Calc 32.34 Est GFR (MDRD) Af Amer 37 L Est GFR (MDRD) Non-Af 30 L BUN/Creatinine Ratio 26.6 H Glucose 167 H Calcium 8.7 Troponin I POC Glucose Micro: Microbiology 03/06/21 07:45 Wound - Right Foot Gram Stain - Final 03/06/21 07:45 Wound - Right Foot Wound Culture - Final Streptococcus group C Staphylococcus aureus 03/06/21 07:45 Wound - Right Foot Anaerobic Culture - Final No anaerobic bacteria isolated. 03/03/21 21:45 Blood Culture (Wb) - Left Hand Blood Culture - Final No growth in 5 days. 03/03/21 19:55 Blood Culture (Wb) - Anticubital Left Blood Culture - Final No growth in 5 days. 03/05/21 09:25 Wound - Left Foot Gram Stain - Final 03/05/21 09:25 Wound - Left Foot Wound Culture - Final Providencia rettgeri Proteus mirabilis Staphylococcus aureus Streptococcus group C Gram positive elinor 03/05/21 09:25 Wound - Left Foot Anaerobic Culture - Final No anaerobic bacteria isolated. 03/03/21 20:30 Urine, Clean Catch Urine Culture - Final Mixed Gram Positive Organisms 03/03/21 23:10 Stool Stool Lactoferrin - Final 03/03/21 23:10 Stool Enteric Bacteriology - Final 03/03/21 23:10 Stool C. difficile DNA Amplification - Final 03/03/21 19:55 Mucosa - Nasopharyngeal Influenza Types A,B Direct FA (MIKE) - Final 03/03/21 19:55 Mucosa - Nasopharyngeal SARS-CoV-2 Antigen (Rapid) - Final Physical Exam Narrative GENERAL: cooperative HEENT: Atraumatic; EYES; Anicteric, Normal Conjunctiva NECK; supple, normal thyroid, RESPIRATORY: Diminished to auscultation CARDIOVASCULAR: Regular S1 S2, GI: soft, normoactive bowel sounds, : No Renal angle tenderness; EXTREMITIES: Both feet in dressing MUSCULOSKELETAL: no muscle waisting NEURO: Awake; no lateralizing signs. SKIN: No Rash PSYCH; Flat affect Assessment & Plan Assessment/Plan (1) Mtcrp-ci-skakwtu kidney injury: QUALIFIERS: Acute renal failure type: unspecified Chronic kidney disease stage: stage 3 (moderate) Chronic kidney disease stage 3 subtype: stage 3a (GFR 45-59) Qualified Code(s): N17.9 - Acute kidney failure, unspecified; N18.31 - Chronic kidney disease, stage 3a (2) Gastroenteritis: (3) Sepsis: QUALIFIERS: Sepsis type: sepsis due to unspecified organism Sepsis acute organ dysfunction status: with acute organ dysfunction Severe sepsis acute organ dysfunction type: acute renal failure Acute renal failure type: unspecified Severe sepsis shock status: without septic shock Qualified Code(s): A41.9 - Sepsis, unspecified organism; R65.20 - Severe sepsis without septic shock; N17.9 - Acute kidney failure, unspecified PLAN: Patient is a 55-year-old lady admitted with generalized body aches, fever, nausea and vomiting and headache for 2 days. Evaluation was consistent with sepsis secondary to right foot abscess, started on broad-spectrum antibiotic therapy admitted to a monitored bed with consultation placed to podiatry. 1. Sepsis secondary to right foot abscess Microbiology as below. Patient on broad-spectrum antibiotic therapy with consultation placed to both podiatry and infectious disease Microbiology 03/06/21 07:45 Wound - Right Foot Wound Culture - Final Streptococcus group C Staphylococcus aureus 03/05/21 09:25 Wound - Left Foot Wound Culture - Final Providencia rettgeri Proteus mirabilis Staphylococcus aureus Streptococcus group C Gram positive elinor 2. Gastroenteritis ?Managed symptomatically. Cultures negative to date 3. Diabetes mellitus type II -With complications including suspected gastroparesis and polyneuropathy placed on long acting insulin, Accu-Cheks a.c. and at bedtime and covered with sliding scale insulin 4. Acute congestive heart failure with preserved ejection fraction ?Echo obtained on 12/29/20 demonstrated EF of 55%. Patient has since been managed with Lasix 5. Anemia - Secondary to chronic disorder monitoring H&H and transfuse if patient becomes symptomatic or hemoglobin falls below 7 6. Chronic kidney disease stage III ?Patient presented with impaired kidney function. Baseline creatinine 1.28 creatinine as of this morning 1.86. 7. Hypertension - Blood pressure controlled, home medications continued with dose adjustment as needed 8. Coronary artery disease -With PCI to mid LAD lesion with a DARA on 01/01/21. Patient is currently on dual antiplatelet therapy and high intensity statin -03/10/2021 patient did develop chest pain the day prior EKG and cardiac enzymes came back negative 9. Dyslipidemia -Patient is on statin therapy, continued at home dose 10. Charcot feet -Was seen in consultation by podiatry recommendations reviewed 11. DVT prophylaxis - On enoxaparin 12. Physical deconditioning - Requested for PT OT eval and licensed social worker to assist with discharge planning Visit Charges Inpatient E&M: 26678 Subs Hosp L2
[2021-03-10 11:38] LABS: Bedside Glucose 193 mg/dL (70-110)
[2021-03-10 11:55] LABS: Bedside Glucose 187 mg/dL (70-110)
--- NOTE | 2021-03-10 14:43 | PCM.CONS.GEN ---
Assessment & Plan Assessment/Plan (1) Cellulitis of right foot: PLAN: bilateral foot infection. Wound cx reviewed, will stop linezolid, change levaquin to po. Plan on 10 more days of abx. 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 Came to ED, found to have bilateral foot infection and abscess. Seen by podiatry, has been on linezolid and levaquin, feeling a little better. Recently got 1st dose of covid vaccine. Full ROS performed and neg except as noted above. [facility] Medical History Acquired varus deformity of left foot Acquired varus deformity of right foot Anemia Anxiety Anxiety and depression Atherosclerosis of coqu[place] coronary artery of coqu[place] heart without angina pectoris Back pain, chronic Chronic renal insufficiency Chronic ulcer of left foot with fat layer exposed Coronary artery disease Delayed wound healing Depression Diabetes Diabetic foot ulcer associated with type 2 diabetes mellitus Diabetic infection of left foot Diabetic polyneuropathy Diabetic ulcer of right ankle Essential (primary) hypertension GERD (gastroesophageal reflux disease) Hemoglobin A1c greater than 9.0% HLD (hyperlipidemia) Hypertension Ischemic cardiomyopathy Myocardial infarct Non-compliance Non-smoker Normocytic anemia NSTEMI (non-ST elevated myocardial infarction) (09/20/18) Obesity (BMI 30.0-34.9) Osteomyelitis of left foot RLS (restless legs syndrome) TIA (transient ischemic attack) Type 2 diabetes mellitus with diabetic polyneuropathy Ulcer of left foot with muscle involvement without evidence of necrosis Ulcer of right lower extremity with fat layer exposed Home Medications atorvastatin 80 mg tablet 80 mg PO QHS #90 tablet 11/30/19 [Rx Last Taken 03/02/21 22:00] insulin lispro 20 unit SC TIDCM 08/31/20 [History Last Taken 11/14/20 09:00] paroxetine HCl 40 mg PO QHS 09/12/20 [History Last Taken 11/13/20 21:00] polysaccharide iron complex 150 mg PO DAILYCM 09/12/20 [History Last Taken 03/02/21 22:00] pramipexole 1.5 mg PO BID 09/12/20 [History Last Taken 03/02/21 22:00] aspirin 81 mg PO DAILY@0800 tab.chew 11/15/20 [Rx Last Taken 03/02/21 22:00] clopidogrel 75 mg PO DAILY #0 tablet 01/01/21 [Rx Last Taken 03/02/21 22:00] gabapentin 300 mg capsule 900 mg PO TID cap 01/20/21 [History Last Taken 03/02/21 22:00] insulin glargine 100 unit/mL (3 mL) subcutaneous pen 30 unit SC DAILY ml 01/20/21 [History Last Taken Unknown] nitroglycerin 0.4 mg sublingual tablet 0.4 mg SL Q5-15M PRN #25 tablet 01/20/21 [Rx Last Taken Unknown] isosorbide mononitrate 30 mg PO DAILY 03/03/21 [History Last Taken 03/02/21 22:00] Allergy/AdvReac Type Severity Reaction Status Date / Time oxycodone [From OxyContin] Allergy feels Verified 03/05/21 14:11 like I'm drowning Penicillins Allergy swelling Verified 03/03/21 22:43 in throat vancomycin Allergy Itching Verified 03/03/21 19:31 metronidazole AdvReac Nausea Verified 03/03/21 19:31 Family History Mother Diabetes CVA (cerebral vascular accident) Brother CAD (coronary artery disease) CABG X 3 Cancer testicular Diabetes Brother CAD (coronary artery disease) CABG X3 Diabetes Brother CAD (coronary artery disease) Stents Diabetes Sister CAD (coronary artery disease) CABG x 3 CVA (cerebral vascular accident) Diabetes Surgical History History of bilateral carpal tunnel release History of History of coronary artery stent placement (12/31/20) History of foot surgery History of rotator cuff surgery Social History Smoking Status: Never smoker alcohol intake: never substance use type: does not use caffeine: Yes Type: carbonated beverages Number of servings: 2 Physical Exam Const alert and no apparent distress General Appearance: cooperative HEENT head/scalp atraumatic Eyes PERRL and EOMs intact bilaterally Neck supple and No nodes Resp normal air movement and clear to auscultation bilaterally Cardio regular rate and regular rhythm GI normal to inspection, nondistended, normoactive bowel sounds Skin Skin Narrative: reviewed photos Neuro CN's II-XII intact bilaterally Lab / Micro Data Result Diagrams: 03/10/21 06:30 03/10/21 06:30 Labs: Laboratory Results - last 24 hr 03/09/21 03/09/21 03/09/21 16:39 17:20 20:20 WBC RBC Hgb Hct MCV MCH MCHC RDW Std Deviation RDW Coeff of Fior Plt Count MPV Immature Gran % (Auto) Neut % (Auto) Lymph % (Auto) [place] % (Auto) Eos % (Auto) Baso % (Auto) Absolute Neuts (auto) Absolute Lymphs (auto) Nucleated RBC % Sodium Potassium Chloride Carbon Dioxide Anion Gap BUN Creatinine Estim Creat Clear Calc Est GFR (MDRD) Af Amer Est GFR (MDRD) Non-Af BUN/Creatinine Ratio Glucose Calcium Troponin I < 0.015 < 0.015 POC Glucose 135 H 03/09/21 03/09/21 03/10/21 21:16 23:55 06:30 WBC 9.5 RBC 2.56 L Hgb 7.3 L Hct 23.4 L MCV 91.4 MCH 28.5 MCHC 31.2 L RDW Std Deviation 45.8 H RDW Coeff of Fior 13.7 Plt Count 304 MPV 10.3 Immature Gran % (Auto) 1.900 H Neut % (Auto) 73.0 H Lymph % (Auto) 14.9 L [place] % (Auto) 7.8 Eos % (Auto) 2.1 Baso % (Auto) 0.3 Absolute Neuts (auto) 6.9 Absolute Lymphs (auto) 1.41 Nucleated RBC % 0 Sodium Potassium Chloride Carbon Dioxide Anion Gap BUN Creatinine Estim Creat Clear Calc Est GFR (MDRD) Af Amer Est GFR (MDRD) Non-Af BUN/Creatinine Ratio Glucose Calcium Troponin I < 0.015 POC Glucose 107 06/01/21 06/01/21 06/01/21 06:30 08:02 11:41 WBC RBC Hgb Hct MCV MCH MCHC RDW Std Deviation RDW Coeff of Fior Plt Count MPV Immature Gran % (Auto) Neut % (Auto) Lymph % (Auto) [place] % (Auto) Eos % (Auto) Baso % (Auto) Absolute Neuts (auto) Absolute Lymphs (auto) Nucleated RBC % Sodium 138 Potassium 4.4 Chloride 103 Carbon Dioxide 28.0 Anion Gap 7 BUN 49 H Creatinine 1.84 H Estim Creat Clear Calc 32.34 Est GFR (MDRD) Af Amer 37 L Est GFR (MDRD) Non-Af 30 L BUN/Creatinine Ratio 26.6 H Glucose 167 H Calcium 8.7 Troponin I POC Glucose 193 H 187 H Micro: Microbiology 03/03/21 23:10 Ova and Parasites - Final Stool 03/06/21 07:45 Gram Stain - Final Wound - Right Foot Wound Culture - Final Streptococcus group C Staphylococcus aureus Anaerobic Culture - Final No anaerobic bacteria isolated.
[2021-03-10] MEDS: Benzonatate 100 MG Capsule PO ×2 (15:45→22:16)
[2021-03-10 16:35] LABS: Bedside Glucose 117 mg/dL (70-110)
[2021-03-10] MEDS: Atorvastatin Calcium 80 MG Tablet PO (22:16)
[2021-03-10] MEDS: Zolpidem Tartrate 5 MG Tablet PO (22:16)
[2021-03-10 22:46] LABS: Bedside Glucose 221 mg/dL (70-110)
[2021-03-11] VITALS (8 sets, daily range): BP systolic 124–142; BP diastolic 69–89; PULSE 86–97; RESP 16–20; TEMP 36.3–37.3; O2SAT 93–97
[2021-03-11] MEDS: 0.9% Saline Lock 10 ML Syringe IV (01:26)
[2021-03-11] MEDS: Ondansetron 4 MG/2 ML Vial IV (01:26)
[2021-03-11] MEDS: Acetaminophen 325 MG Tablet 650 MG PO (04:24)
[2021-03-11] MEDS: levoFLOXacin 250 MG Tablet PO (05:56)
[2021-03-11] MEDS: Gabapentin 300 MG Capsule 900 MG PO ×3 (05:56→21:19)
[2021-03-11 06:24] LABS: Absolute Lymphocyte Count 1.43 X10^3/uL (0.83-4.51); Basophil# 0.02 X10^3/uL; Basophil% 0.2 % (0-1); Eosinophil# 0.13 X10^3/uL; Eosinophils% 1.1 % (0-5); Hematocrit 23.8 % (37-47); Hemoglobin 7.4 g/dL (12.0-15.0); Lymphocyte # 1.43 X10^3/ul (0.83-4.51); Lymphocyte % 12.5 % (19-41); Mean Corp Hgb Conc 31.1 g/dL (32-36); Mean Corpuscular Hgb 28.4 pg (27.0-32.0); Mean Corpuscular Volume 91.2 fL (81-99); Mean Platelet Vol. 10.2 fl (6.2-12.0); Monocyte# 0.73 X10^3/uL; Monocyte% 6.4 % (0-10); NRBC Flagged by Analyzer 0 % (0-5); Neutrophil # 9.01 X10^3/uL (2.7-7.7); Neutrophil % 78.6 % (47-70); Platelet Count 321 K/mm3 (150-450); RBC Distribution Width CV 13.6 % (11.6-14.6); RBC Distribution Width SD 45.1 fl (35.1-43.9); Red Blood Count 2.61 M/mm3 (4.2-5.4); White Blood Count 11.5 K/mm3 (4.4-11.0)
[2021-03-11 06:45] LABS: Anion Gap 6 (5-15); BUN 48 mg/dL (7-18); BUN/Creat Ratio 28.1 RATIO (10-20); Calcium,Total 8.9 mg/dL (8.5-10.1); Chloride 103 mmol/L (98-107); Creatinine, Serum 1.71 mg/dL (0.55-1.02); EST Glomerular Filtration Rate 33 mL/min (>60); Est Glom Filt Rate - Afr Amer 40 mL/min (>60); Glucose 199 mg/dL (74-106); Potassium 4.2 mmol/L (3.5-5.1); Sodium Level 137 mmol/L (136-145)
--- NOTE | 2021-03-11 07:56 | PN_ITS ---
Subjective Subjective Patient was seen this morning, no fever, no chills, no nausea, no vomiting. She was resting in bed. Objective Data Objective Data Vital Signs: Vital Signs Temp Pulse Resp BP Pulse Ox 99.1 F 96 16 134/89 H 93 03/11/21 02:46 03/11/21 03:00 03/11/21 02:46 03/11/21 02:46 03/11/21 02:46 Oxygen Flow Rate (L/min) 2 Oxygen Delivery Method Room Air Weight: 88 kg Body Mass Index (BMI) 31.3 Intake & Output: Intake and Output for Last 24 Hours 03/09/21 03/10/21 03/11/21 23:59 23:59 23:59 Intake Total 2378.75 / 2578.75 1370 / 1370 400 / 400 Output Total 500 / 500 Balance 1878.75 / 2078.75 1370 / 1370 400 / 400 Lab / Micro Data Result Diagrams: 03/11/21 05:40 03/11/21 05:40 Labs: Laboratory Results - last 24 hr 03/10/21 03/10/21 03/10/21 08:02 11:41 16:29 WBC RBC Hgb Hct MCV MCH MCHC RDW Std Deviation RDW Coeff of Fior Plt Count MPV Immature Gran % (Auto) Neut % (Auto) Lymph % (Auto) [place] % (Auto) Eos % (Auto) Baso % (Auto) Absolute Neuts (auto) Absolute Lymphs (auto) Nucleated RBC % Sodium Potassium Chloride Carbon Dioxide Anion Gap BUN Creatinine Estim Creat Clear Calc Est GFR (MDRD) Af Amer Est GFR (MDRD) Non-Af BUN/Creatinine Ratio Glucose Calcium POC Glucose 193 H 187 H 117 H 03/10/21 03/11/21 03/11/21 22:09 05:40 05:40 WBC 11.5 H RBC 2.61 L Hgb 7.4 L Hct 23.8 L MCV 91.2 MCH 28.4 MCHC 31.1 L RDW Std Deviation 45.1 H RDW Coeff of Fior 13.6 Plt Count 321 MPV 10.2 Immature Gran % (Auto) 1.200 H Neut % (Auto) 78.6 H Lymph % (Auto) 12.5 L [place] % (Auto) 6.4 Eos % (Auto) 1.1 Baso % (Auto) 0.2 Absolute Neuts (auto) 9.0 H Absolute Lymphs (auto) 1.43 Nucleated RBC % 0 Sodium 137 Potassium 4.2 Chloride 103 Carbon Dioxide 28.0 Anion Gap 6 BUN 48 H Creatinine 1.71 H Estim Creat Clear Calc 34.80 Est GFR (MDRD) Af Amer 40 L Est GFR (MDRD) Non-Af 33 L BUN/Creatinine Ratio 28.1 H Glucose 199 H Calcium 8.9 POC Glucose 221 H Micro: Microbiology 03/03/21 23:10 Stool Ova and Parasites - Final 03/06/21 07:45 Wound - Right Foot Gram Stain - Final 03/06/21 07:45 Wound - Right Foot Wound Culture - Final Streptococcus group C Staphylococcus aureus 03/06/21 07:45 Wound - Right Foot Anaerobic Culture - Final No anaerobic bacteria isolated. 03/03/21 21:45 Blood Culture (Wb) - Left Hand Blood Culture - Final No growth in 5 days. 03/03/21 19:55 Blood Culture (Wb) - Anticubital Left Blood Culture - Final No growth in 5 days. 03/05/21 09:25 Wound - Left Foot Gram Stain - Final 03/05/21 09:25 Wound - Left Foot Wound Culture - Final Providencia rettgeri Proteus mirabilis Staphylococcus aureus Streptococcus group C Gram positive elinor 03/05/21 09:25 Wound - Left Foot Anaerobic Culture - Final No anaerobic bacteria isolated. 03/03/21 20:30 Urine, Clean Catch Urine Culture - Final Mixed Gram Positive Organisms 03/03/21 23:10 Stool Stool Lactoferrin - Final 03/03/21 23:10 Stool Enteric Bacteriology - Final 03/03/21 23:10 Stool C. difficile DNA Amplification - Final 03/03/21 19:55 Mucosa - Nasopharyngeal Influenza Types A,B Direct FA (MIKE) - Final 03/03/21 19:55 Mucosa - Nasopharyngeal SARS-CoV-2 Antigen (Rapid) - Final Physical Exam Const alert and oriented x3 General Appearance: cooperative Extremity normal capillary refill and no calf tenderness General Extremity: edema right and other findings Other Details: Capillary refill time less than 3 seconds noted to digits bilateral foot ; Negative for clubbing or cyanosis Skin General Skin Exam: atrophy and dry skin; Negative for ecchymosis, erythema, eschar, pallor or dermatitis Rashes: no rashes Wounds: wounds noted Wound Narrative: Plantar left foot ulceration appears improved, no surrounding maceration noted. There is no erythema or edema or malodor or purulence or other suggestion signs of infection. Wound is to the level of muscle/fat. Right foot ulceration plantar lateral foot, also wound to the lateral 5th met base, there is surrounding erythema, also some erythema to the dorsal foot which is improvd, there is some edema, there is nonviable tissue present to the ulceration site with some purulent drainage noted, ulcer down to the fascia l brianda, no probe to bone - there is no maloder, no fluctuance, no crepitus, no streaking. 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 Charcot foot deformity noted bilaterally. No areas of acute ischemia to the foot or ankle bilateral. Neuro Sensory Exam: extremities light-touch: decreased Motor Exam: strength abnormal other (4/5 to all pedal muscle groups) Psych Appearance: appropriate Assessment & Plan Assessment/Plan (1) Charcot's joint of right foot: (2) Non-pressure chronic ulcer of other part of left foot with fat layer exposed: (3) Sepsis: QUALIFIERS: Acute renal failure type: unspecified Sepsis acute organ dysfunction status: with acute organ dysfunction Sepsis type: sepsis due to unspecified organism Severe sepsis acute organ dysfunction type: acute renal failure Severe sepsis shock status: without septic shock Qualified Code(s): A41.9 - Sepsis, unspecified organism; R65.20 - Severe sepsis without septic shock; N17.9 - Acute kidney failure, unspecified (4) [id number] kidney injury: QUALIFIERS: Acute renal failure type: unspecified Chronic kidney disease stage: stage 3 (moderate) Chronic kidney disease stage 3 subtype: stage 3a (GFR 45-59) Qualified Code(s): N17.9 - Acute kidney failure, unspecified; N18.31 - Chronic kidney disease, stage 3a (5) Gastroenteritis: (6) Delayed wound healing: (7) Amputation foot, bilat: (8) Charcot's joint of left foot: (9) Type 2 diabetes mellitus with diabetic polyneuropathy: QUALIFIERS: 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 Reviewed right foot MRI. There is evidence of Charcot neuroarthropathy. There is also noted findings consistent with ulcer and infection to the foot. Overall prognosis on right foot is guarded, as she has very poor blood sugar control and overall nonadherent with care to foot. Advised patient she is a high risk of eventual limb loss due to her uncontrolled diabetes and overall general nonadherence with following through on proper care which has been a chronic issue for her, now with chartcot neuroarthropathy with infection. Patient is last hemoglobin A1c was 13.1 on 12/29/2020 - patient noted to have overall very poor blood glucose control over long period of time - reviewed the importance of proper blood sugar control to help optimize wound and bone healing. There appears to be some improvement to the foot today. We will continue with antibiotic therapy, local wound care, nonweightbearing, and close monitoring. Patient agreed with this plan. It is noted patient's WBC is 11.5 today, temperature is 99.1. Cultures have been obtained from both the right and left foot - results reviewed. Patient is on antibiotic therapy, Dr. Tello from Infectious Disease is on consult. Wound care right foot: pack with Iodoform gauze, and apply overlying Aquacel Ag, gauze, kerlix, abd pad and brando. Left foot: Aquacel Ag with overlying gauze, kerlix and brando dressing - change daily. Due acute Charcot event to the right foot nonweightbearing to her right foot has been recommended and advised. With ulceration to left foot is also not advisable for patient to weight-bear on her left foot. Recommend patient be wheelchair-bound. If patient needs to pivot to transfer can put weight through heel on left foot. Podiatry will continue to follow. To follow-up with Dr. Cuevas upon discharge. Patient has scheduled appt with Dr. Cuevas this Tuesday03/13/2021 at [facility] for wound check, sooner if needed.
[2021-03-11] MEDS: Insulin Lispro 100 UNIT/ML INSULN.PEN SC (08:20)
[2021-03-11] MEDS: Insulin Lispro 100 UNIT/ML INSULN.PEN 20 UNIT SC ×3 (08:20→17:44)
[2021-03-11] MEDS: Iron Polysaccharide Complex 150 MG CAPSULE PO (08:21)
[2021-03-11] MEDS: Aspirin 81 MG TAB.CHEW PO (08:21)
[2021-03-11] MEDS: Glucerna Shake 120 ML LIQUID PO ×3 (08:21→21:18)
[2021-03-11] MEDS: Isosorbide Mononitrate 30 MG Tablet PO (08:22)
[2021-03-11] MEDS: Clopidogrel Bisulfate 75 MG Tablet PO (08:22)
[2021-03-11] MEDS: Heparin Injection (Vial) 5,000 UNIT/ML VIAL 5000 UNIT SC ×2 (08:22→21:19)
[2021-03-11] MEDS: Pramipexole Di-HCl 1 MG Tablet 1.5 MG PO ×2 (08:22→21:19)
[2021-03-11] MEDS: Furosemide 40 MG Tablet PO (08:22)
--- NOTE | 2021-03-11 08:25 | PCM.PN.HOSP ---
Subjective Subjective patient was seen in consultation by Dr. Tello with infectious disease recommended discontinuation of linezolid and changing to p.o. Levaquin for 10 additional days Awaiting insurance precertification prior to transfer to [facility] facility Objective Data Objective Data Vital Signs: Vital Signs Temp Pulse Resp BP Pulse Ox 98.3 F 89 18 142/81 H 96 03/11/21 08:17 03/11/21 08:17 03/11/21 08:17 03/11/21 08:17 03/11/21 08:17 Oxygen Flow Rate (L/min) 2 Oxygen Delivery Method Room Air Weight: 88 kg Body Mass Index (BMI) 31.3 Intake & Output: Intake and Output for Last 24 Hours 03/09/21 03/10/21 03/11/21 23:59 23:59 23:59 Intake Total 2378.75 / 2578.75 1370 / 1370 400 / 400 Output Total 500 / 500 Balance 1878.75 / 2078.75 1370 / 1370 400 / 400 Lab / Micro Data Result Diagrams: 03/11/21 05:40 03/11/21 05:40 Labs: Laboratory Results - last 24 hr 03/10/21 03/10/21 03/10/21 08:02 11:41 16:29 WBC RBC Hgb Hct MCV MCH MCHC RDW Std Deviation RDW Coeff of Fior Plt Count MPV Immature Gran % (Auto) Neut % (Auto) Lymph % (Auto) [place] % (Auto) Eos % (Auto) Baso % (Auto) Absolute Neuts (auto) Absolute Lymphs (auto) Nucleated RBC % Sodium Potassium Chloride Carbon Dioxide Anion Gap BUN Creatinine Estim Creat Clear Calc Est GFR (MDRD) Af Amer Est GFR (MDRD) Non-Af BUN/Creatinine Ratio Glucose Calcium POC Glucose 193 H 187 H 117 H 03/10/21 03/11/21 03/11/21 22:09 05:40 05:40 WBC 11.5 H RBC 2.61 L Hgb 7.4 L Hct 23.8 L MCV 91.2 MCH 28.4 MCHC 31.1 L RDW Std Deviation 45.1 H RDW Coeff of Fior 13.6 Plt Count 321 MPV 10.2 Immature Gran % (Auto) 1.200 H Neut % (Auto) 78.6 H Lymph % (Auto) 12.5 L [place] % (Auto) 6.4 Eos % (Auto) 1.1 Baso % (Auto) 0.2 Absolute Neuts (auto) 9.0 H Absolute Lymphs (auto) 1.43 Nucleated RBC % 0 Sodium 137 Potassium 4.2 Chloride 103 Carbon Dioxide 28.0 Anion Gap 6 BUN 48 H Creatinine 1.71 H Estim Creat Clear Calc 34.80 Est GFR (MDRD) Af Amer 40 L Est GFR (MDRD) Non-Af 33 L BUN/Creatinine Ratio 28.1 H Glucose 199 H Calcium 8.9 POC Glucose 221 H Micro: Microbiology 03/03/21 23:10 Stool Ova and Parasites - Final 03/06/21 07:45 Wound - Right Foot Gram Stain - Final 03/06/21 07:45 Wound - Right Foot Wound Culture - Final Streptococcus group C Staphylococcus aureus 03/06/21 07:45 Wound - Right Foot Anaerobic Culture - Final No anaerobic bacteria isolated. 03/03/21 21:45 Blood Culture (Wb) - Left Hand Blood Culture - Final No growth in 5 days. 03/03/21 19:55 Blood Culture (Wb) - Anticubital Left Blood Culture - Final No growth in 5 days. 03/05/21 09:25 Wound - Left Foot Gram Stain - Final 03/05/21 09:25 Wound - Left Foot Wound Culture - Final Providencia rettgeri Proteus mirabilis Staphylococcus aureus Streptococcus group C Gram positive elinor 03/05/21 09:25 Wound - Left Foot Anaerobic Culture - Final No anaerobic bacteria isolated. 03/03/21 20:30 Urine, Clean Catch Urine Culture - Final Mixed Gram Positive Organisms 03/03/21 23:10 Stool Stool Lactoferrin - Final 03/03/21 23:10 Stool Enteric Bacteriology - Final 03/03/21 23:10 Stool C. difficile DNA Amplification - Final 03/03/21 19:55 Mucosa - Nasopharyngeal Influenza Types A,B Direct FA (MIKE) - Final 03/03/21 19:55 Mucosa - Nasopharyngeal SARS-CoV-2 Antigen (Rapid) - Final Physical Exam Narrative GENERAL: cooperative HEENT: Atraumatic; EYES; Anicteric, Normal Conjunctiva NECK; supple, normal thyroid, RESPIRATORY: Diminished to auscultation CARDIOVASCULAR: Regular S1 S2, GI: soft, normoactive bowel sounds, : No Renal angle tenderness; EXTREMITIES: Both feet in dressing MUSCULOSKELETAL: no muscle waisting NEURO: Awake; no lateralizing signs. SKIN: No Rash PSYCH; Flat affect Assessment & Plan Assessment/Plan (1) Ueikf-bh-upqhakl kidney injury: QUALIFIERS: Acute renal failure type: unspecified Chronic kidney disease stage: stage 3 (moderate) Chronic kidney disease stage 3 subtype: stage 3a (GFR 45-59) Qualified Code(s): N17.9 - Acute kidney failure, unspecified; N18.31 - Chronic kidney disease, stage 3a (2) Gastroenteritis: (3) Sepsis: QUALIFIERS: Acute renal failure type: unspecified Sepsis acute organ dysfunction status: with acute organ dysfunction Sepsis type: sepsis due to unspecified organism Severe sepsis acute organ dysfunction type: acute renal failure Severe sepsis shock status: without septic shock Qualified Code(s): A41.9 - Sepsis, unspecified organism; R65.20 - Severe sepsis without septic shock; N17.9 - Acute kidney failure, unspecified PLAN: Patient is a 55-year-old lady admitted with generalized body aches, fever, nausea and vomiting and headache for 2 days. Evaluation was consistent with sepsis secondary to right foot abscess, started on broad-spectrum antibiotic therapy admitted to a monitored bed with consultation placed to podiatry. 1. Sepsis secondary to right foot abscess Microbiology as below. Patient on broad-spectrum antibiotic therapy with consultation placed to both podiatry and infectious disease Microbiology 03/06/21 07:45 Wound - Right Foot Wound Culture - Final Streptococcus group C Staphylococcus aureus 03/05/21 09:25 Wound - Left Foot Wound Culture - Final Providencia rettgeri Proteus mirabilis Staphylococcus aureus Streptococcus group C Gram positive elinor 03/11/2021; patient was seen in consultation by Dr. Tello with infectious disease recommended discontinuation of linezolid and changing to p.o. Levaquin for 10 additional days 2. Gastroenteritis ?Managed symptomatically. Cultures negative to date 3. Diabetes mellitus type II -With complications including suspected gastroparesis and polyneuropathy placed on long acting insulin, Accu-Cheks a.c. and at bedtime and covered with sliding scale insulin 4. Acute congestive heart failure with preserved ejection fraction ?Echo obtained on 12/29/20 demonstrated EF of 55%. Patient has since been managed with Lasix 5. Anemia - Secondary to chronic disorder monitoring H&H and transfuse if patient becomes symptomatic or hemoglobin falls below 7 6. Chronic kidney disease stage III ?Patient presented with impaired kidney function. Baseline creatinine 1.28 creatinine as of this morning 1.86. 7. Hypertension - Blood pressure controlled, home medications continued with dose adjustment as needed 8. Coronary artery disease -With PCI to mid LAD lesion with a DARA on 01/01/21. Patient is currently on dual antiplatelet therapy and high intensity statin -03/10/2021 patient did develop chest pain the day prior EKG and cardiac enzymes came back negative 9. Dyslipidemia -Patient is on statin therapy, continued at home dose 10. Charcot feet -Was seen in consultation by podiatry recommendations reviewed 11. DVT prophylaxis - On enoxaparin 12. Physical deconditioning - Requested for PT OT eval and social sciences research scientist to assist with discharge planning Visit Charges Inpatient E&M: 23451 Subs Hosp L2
--- NOTE | 2021-03-11 09:33 | CASEMGMT ---
Lexie parikh Robards requested updates, Updates faxed. LUCRETIA will continue to follow. FRANCISCO Elaine
[2021-03-11] MEDS: Benzonatate 100 MG Capsule PO ×2 (09:35→21:20)
[2021-03-11] MEDS: oxyCODONE 5 MG Tablet PO (09:35)
--- NOTE | 2021-03-11 11:24 | CASEMGMT ---
Pt asked if hospital can provide a letter to her regarding her medical condition, in the attempt to help the process of getting her home from [place] sooner. He is to come home in April, however her energy attorney explained to her if the hospital can provide a letter regarding her condition, it may expedite getting him home. Letter provided with general information regarding pt's condition and care needed. FRANCISCO Elaine
[2021-03-11 12:06] LABS: Bedside Glucose 144 mg/dL (70-110)
[2021-03-11 14:56] LABS: Bedside Glucose 201 mg/dL (70-110)
[2021-03-11 17:21] LABS: Bedside Glucose 135 mg/dL (70-110)
[2021-03-11] MEDS: Atorvastatin Calcium 80 MG Tablet PO (21:19)
[2021-03-11] MEDS: Zolpidem Tartrate 5 MG Tablet PO (21:25)
[2021-03-11 22:05] LABS: Bedside Glucose 114 mg/dL (70-110)
[2021-03-12] VITALS (9 sets, daily range): BP systolic 131–145; BP diastolic 64–74; PULSE 86–99; RESP 16–20; TEMP 36.6–37.4; O2SAT 92–95
[2021-03-12] MEDS: oxyCODONE 5 MG Tablet PO ×2 (02:33→16:52)
[2021-03-12] MEDS: Acetaminophen 325 MG Tablet 650 MG PO ×3 (02:34→23:05)
[2021-03-12] MEDS: Gabapentin 300 MG Capsule 900 MG PO ×3 (05:01→20:52)
[2021-03-12] MEDS: levoFLOXacin 250 MG Tablet PO (05:01)
[2021-03-12 07:14] LABS: Absolute Lymphocyte Count 1.33 X10^3/uL (0.83-4.51); Absolute Neutrophil Count 9.1 X10^3/uL (2.0-7.7); Basophil# 0.02 X10^3/uL; Basophil% 0.2 % (0-1); Eosinophil# 0.19 X10^3/uL; Eosinophils% 1.7 % (0-5); Hematocrit 23.9 % (37-47); Hemoglobin 7.4 g/dL (12.0-15.0); Lymphocyte # 1.33 X10^3/ul (0.83-4.51); Lymphocyte % 11.6 % (19-41); Mean Corpuscular Hgb 28.4 pg (27.0-32.0); Mean Corpuscular Volume 91.6 fL (81-99); Mean Platelet Vol. 9.8 fl (6.2-12.0); Monocyte# 0.64 X10^3/uL; Monocyte% 5.6 % (0-10); NRBC Flagged by Analyzer 0 % (0-5); Neutrophil # 9.14 X10^3/uL (2.7-7.7); Neutrophil % 79.8 % (47-70); Platelet Count 303 K/mm3 (150-450); RBC Distribution Width CV 13.7 % (11.6-14.6); RBC Distribution Width SD 45.6 fl (35.1-43.9); Red Blood Count 2.61 M/mm3 (4.2-5.4); White Blood Count 11.5 K/mm3 (4.4-11.0)
[2021-03-12 07:40] LABS: Anion Gap 6 (5-15); BUN 48 mg/dL (7-18); BUN/Creat Ratio 25.4 RATIO (10-20); Calcium,Total 8.6 mg/dL (8.5-10.1); Chloride 102 mmol/L (98-107); Creatinine, Serum 1.89 mg/dL (0.55-1.02); EST Glomerular Filtration Rate 29 mL/min (>60); Est Glom Filt Rate - Afr Amer 35 mL/min (>60); Estimated Creatinine Clearance 31.48 ml/min; Glucose 225 mg/dL (74-106); Potassium 4.6 mmol/L (3.5-5.1); Sodium Level 137 mmol/L (136-145)
--- NOTE | 2021-03-12 08:08 | NURSING ---
wound photo: left foot
--- NOTE | 2021-03-12 08:08 | NURSING ---
wound photo: right foot
--- NOTE | 2021-03-12 08:22 | PN_ITS ---
Subjective Subjective Patient was seen this morning for follow up on bilateral feet. He has no new complaints. She is resting comfortably in bed. No complaints of fever, chills, nausea or vomiting. Objective Data Objective Data Vital Signs: Vital Signs Temp Pulse Resp BP Pulse Ox 99.3 F H 86 20 H 145/74 H 95 03/12/21 03:40 03/12/21 07:00 03/12/21 03:40 03/12/21 03:40 03/12/21 03:40 Oxygen Flow Rate (L/min) 2 Oxygen Delivery Method Room Air Weight: 88 kg Body Mass Index (BMI) 31.3 Intake & Output: Intake and Output for Last 24 Hours 03/10/21 03/11/21 03/12/21 23:59 23:59 23:59 Intake Total 1370 / 1370 1120 / 1320 320 / 320 Output Total 0 / 0 Balance 1370 / 1370 1120 / 1320 320 / 320 Lab / Micro Data Result Diagrams: 03/12/21 06:20 03/12/21 06:20 Labs: Laboratory Results - last 24 hr 03/11/21 03/11/21 03/11/21 08:14 11:57 17:13 WBC RBC Hgb Hct MCV MCH MCHC RDW Std Deviation RDW Coeff of Fior Plt Count MPV Immature Gran % (Auto) Neut % (Auto) Lymph % (Auto) [place] % (Auto) Eos % (Auto) Baso % (Auto) Absolute Neuts (auto) Absolute Lymphs (auto) Nucleated RBC % Sodium Potassium Chloride Carbon Dioxide Anion Gap BUN Creatinine Estim Creat Clear Calc Est GFR (MDRD) Af Amer Est GFR (MDRD) Non-Af BUN/Creatinine Ratio Glucose Calcium POC Glucose 201 H 144 H 135 H 03/11/21 03/12/21 03/12/21 21:16 06:20 06:20 WBC 11.5 H RBC 2.61 L Hgb 7.4 L Hct 23.9 L MCV 91.6 MCH 28.4 MCHC 31.0 L RDW Std Deviation 45.6 H RDW Coeff of Fior 13.7 Plt Count 303 MPV 9.8 Immature Gran % (Auto) 1.100 H Neut % (Auto) 79.8 H Lymph % (Auto) 11.6 L [place] % (Auto) 5.6 Eos % (Auto) 1.7 Baso % (Auto) 0.2 Absolute Neuts (auto) 9.1 H Absolute Lymphs (auto) 1.33 Nucleated RBC % 0 Sodium 137 Potassium 4.6 Chloride 102 Carbon Dioxide 29.0 Anion Gap 6 BUN 48 H Creatinine 1.89 H Estim Creat Clear Calc 31.48 Est GFR (MDRD) Af Amer 35 L Est GFR (MDRD) Non-Af 29 L BUN/Creatinine Ratio 25.4 H Glucose 225 H Calcium 8.6 POC Glucose 114 H Micro: Microbiology 03/03/21 23:10 Stool Ova and Parasites - Final 03/06/21 07:45 Wound - Right Foot Gram Stain - Final 03/06/21 07:45 Wound - Right Foot Wound Culture - Final Streptococcus group C Staphylococcus aureus 03/06/21 07:45 Wound - Right Foot Anaerobic Culture - Final No anaerobic bacteria isolated. 03/03/21 21:45 Blood Culture (Wb) - Left Hand Blood Culture - Final No growth in 5 days. 03/03/21 19:55 Blood Culture (Wb) - Anticubital Left Blood Culture - Final No growth in 5 days. 03/05/21 09:25 Wound - Left Foot Gram Stain - Final 03/05/21 09:25 Wound - Left Foot Wound Culture - Final Providencia rettgeri Proteus mirabilis Staphylococcus aureus Streptococcus group C Gram positive elinor 03/05/21 09:25 Wound - Left Foot Anaerobic Culture - Final No anaerobic bacteria isolated. 03/03/21 20:30 Urine, Clean Catch Urine Culture - Final Mixed Gram Positive Organisms 03/03/21 23:10 Stool Stool Lactoferrin - Final 03/03/21 23:10 Stool Enteric Bacteriology - Final 03/03/21 23:10 Stool C. difficile DNA Amplification - Final 03/03/21 19:55 Mucosa - Nasopharyngeal Influenza Types A,B Direct FA (MIKE) - Final 03/03/21 19:55 Mucosa - Nasopharyngeal SARS-CoV-2 Antigen (Rapid) - Final Physical Exam Const alert and oriented x3 General Appearance: cooperative Extremity normal capillary refill and no calf tenderness General Extremity: edema right and other findings Other Details: Capillary refill time less than 3 seconds noted to digits bilateral foot ; Negative for clubbing or cyanosis Skin General Skin Exam: atrophy and dry skin; Negative for ecchymosis, erythema, eschar, pallor or dermatitis Rashes: no rashes Wounds: wounds noted Wound Narrative: Plantar left foot ulceration healthy and viable, it is healing, no surrounding maceration noted. There is no erythema or edema or malodor or purulence or other suggestion signs of infection. Wound is to the level of muscle/fat. Right foot ulceration plantar lateral foot, also wound to the lateral 5th met base, there is surrounding erythema which is improved today, also some erythema to the dorsal foot which is improved, there is some edema - improved, there is nonviable tissue present to the ulceration site with some scant purulent drainage noted, ulcer down to the fascia layer, no probe to bone - there is no maloder, no fluctuance, no crepitus, no streaking. 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 Charcot foot deformity noted bilaterally. No areas of acute ischemia to the foot or ankle bilateral. Neuro Sensory Exam: extremities light-touch: decreased Motor Exam: strength abnormal other (4/5 to all pedal muscle groups) Psych Appearance: appropriate Assessment & Plan Assessment/Plan (1) Charcot's joint of right foot: (2) Non-pressure chronic ulcer of other part of left foot with fat layer exposed: (3) Sepsis: QUALIFIERS: Sepsis type: sepsis due to unspecified organism Sepsis acute organ dysfunction status: with acute organ dysfunction Severe sepsis acute organ dysfunction type: acute renal failure Acute renal failure type: unspecified Severe sepsis shock status: without septic shock Qualified Code(s): A41.9 - Sepsis, unspecified organism; R65.20 - Severe sepsis without septic shock; N17.9 - Acute kidney failure, unspecified (4) [id number] kidney injury: QUALIFIERS: Acute renal failure type: unspecified Chronic kidney disease stage: stage 3 (moderate) Chronic kidney disease stage 3 subtype: stage 3a (GFR 45-59) Qualified Code(s): N17.9 - Acute kidney failure, unspecified; N18.31 - Chronic kidney disease, stage 3a (5) Gastroenteritis: (6) Delayed wound healing: (7) Amputation foot, bilat: (8) Charcot's joint of left foot: (9) Type 2 diabetes mellitus with diabetic polyneuropathy: QUALIFIERS: Diabetes mellitus longterm insulin use: with termite exterminator helper use Qualified Code(s): E11.42 - Type 2 diabetes mellitus with diabetic polyneuropathy; Z79.4 - terminal press operator (current) use of insulin (10) Non-pressure chronic 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 layer exposed: (11) Cellulitis of right foot: PLAN: Patient seen and examined bedside. Today there is noted improvement to the right foot. Reviewed right foot MRI. There is evidence of Charcot ana roarthropathy. There is also noted findings consistent with ulcers and infection to the foot. Overall prognosis on right foot is guarded, as she has very poor blood sugar control and overall nonadherent with care to foot. Advised patient she is a high risk of eventual limb loss due to her uncontrolled diabetes and overall general nonadherence with following through on proper care which has been a chronic issue for her, now with Charcot neuroarthropathy with infection. Patient is last hemoglobin A1c was 13.1 on 12/29/2020 - patient noted to have overall very poor blood glucose control over long period of time - reviewed the importance of proper blood sugar control to help optimize wound and bone healing. There appears to be some improvement to the foot today. We will continue with antibiotic therapy, local wound care, nonweightbearing, and close monitoring. Patient agreed with this plan. It is noted patient's WBC is 11.5 today, temperature is 99.3. Cultures have been obtained from both the right and left foot - results reviewed. Patient is on antibiotic therapy, Dr. Tello from Infectious Disease is on consult. Wound care right foot: pack with Iodoform gauze, and apply overlying Aquacel Ag, gauze, kerlix, abd pad and brando. Left foot: Aquacel Ag with overlying gauze, kerlix and brando dressing - change daily. Due acute Charcot event to the right foot nonweightbearing to her right foot has been recommended and advised. With ulceration to left foot is also not advisable for patient to weight-bear on her left foot. Recommend patient be wheelchair-bound. If patient needs to pivot to transfer can put weight through heel on left foot. Podiatry will continue to follow. To follow-up with Dr. Cuevas upon discharge.
[2021-03-12] MEDS: Insulin Lispro 100 UNIT/ML INSULN.PEN 20 UNIT SC ×3 (09:56→18:03)
[2021-03-12] MEDS: Insulin Lispro 100 UNIT/ML INSULN.PEN SC ×2 (09:56→12:28)
[2021-03-12] MEDS: Iron Polysaccharide Complex 150 MG CAPSULE PO (10:01)
[2021-03-12] MEDS: Pramipexole Di-HCl 1 MG Tablet 1.5 MG PO ×2 (10:01→20:53)
[2021-03-12] MEDS: Juven (unflavored) Packet 1 PACKET PO (10:02)
[2021-03-12] MEDS: Aspirin 81 MG TAB.CHEW PO (10:02)
[2021-03-12] MEDS: Glucerna Shake 120 ML LIQUID PO ×2 (10:03→16:46)
[2021-03-12] MEDS: Clopidogrel Bisulfate 75 MG Tablet PO (10:04)
[2021-03-12] MEDS: Isosorbide Mononitrate 30 MG Tablet PO (10:04)
[2021-03-12] MEDS: Furosemide 40 MG Tablet PO (10:04)
[2021-03-12] MEDS: Heparin Injection (Vial) 5,000 UNIT/ML VIAL 5000 UNIT SC ×2 (10:04→20:53)
[2021-03-12 10:15] LABS: Bedside Glucose 222 mg/dL (70-110)
--- NOTE | 2021-03-12 11:40 | PN.HOSP_ITS ---
Subjective Subjective Patient seen pain is relatively under control. Awaiting insurance precertification prior to patient being transferred to [facility] facility Objective Data Objective Data Vital Signs: Vital Signs Temp Pulse Resp BP Pulse Ox 98.0 F 86 16 133/74 H 92 03/12/21 09:40 03/12/21 09:40 03/12/21 09:40 03/12/21 09:40 03/12/21 09:40 Oxygen Flow Rate (L/min) 2 Oxygen Delivery Method Room Air Weight: 88 kg Body Mass Index (BMI) 31.3 Intake & Output: Intake and Output for Last 24 Hours 03/10/21 03/11/21 03/12/21 23:59 23:59 23:59 Intake Total 1370 / 1370 1120 / 1320 320 / 320 Output Total 0 / 0 Balance 1370 / 1370 1120 / 1320 320 / 320 Lab / Micro Data Result Diagrams: 03/12/21 06:20 03/12/21 06:20 Labs: Laboratory Results - last 24 hr 03/11/21 03/11/21 03/11/21 08:14 11:57 17:13 WBC RBC Hgb Hct MCV MCH MCHC RDW Std Deviation RDW Coeff of Fior Plt Count MPV Immature Gran % (Auto) Neut % (Auto) Lymph % (Auto) [place] % (Auto) Eos % (Auto) Baso % (Auto) Absolute Neuts (auto) Absolute Lymphs (auto) Nucleated RBC % Sodium Potassium Chloride Carbon Dioxide Anion Gap BUN Creatinine Estim Creat Clear Calc Est GFR (MDRD) Af Amer Est GFR (MDRD) Non-Af BUN/Creatinine Ratio Glucose Calcium POC Glucose 201 H 144 H 135 H 03/11/21 03/12/21 03/12/21 21:16 06:20 06:20 WBC 11.5 H RBC 2.61 L Hgb 7.4 L Hct 23.9 L MCV 91.6 MCH 28.4 MCHC 31.0 L RDW Std Deviation 45.6 H RDW Coeff of Fior 13.7 Plt Count 303 MPV 9.8 Immature Gran % (Auto) 1.100 H Neut % (Auto) 79.8 H Lymph % (Auto) 11.6 L [place] % (Auto) 5.6 Eos % (Auto) 1.7 Baso % (Auto) 0.2 Absolute Neuts (auto) 9.1 H Absolute Lymphs (auto) 1.33 Nucleated RBC % 0 Sodium 137 Potassium 4.6 Chloride 102 Carbon Dioxide 29.0 Anion Gap 6 BUN 48 H Creatinine 1.89 H Estim Creat Clear Calc 31.48 Est GFR (MDRD) Af Amer 35 L Est GFR (MDRD) Non-Af 29 L BUN/Creatinine Ratio 25.4 H Glucose 225 H Calcium 8.6 POC Glucose 114 H 03/12/21 08:21 WBC RBC Hgb Hct MCV MCH MCHC RDW Std Deviation RDW Coeff of Fior Plt Count MPV Immature Gran % (Auto) Neut % (Auto) Lymph % (Auto) [place] % (Auto) Eos % (Auto) Baso % (Auto) Absolute Neuts (auto) Absolute Lymphs (auto) Nucleated RBC % Sodium Potassium Chloride Carbon Dioxide Anion Gap BUN Creatinine Estim Creat Clear Calc Est GFR (MDRD) Af Amer Est GFR (MDRD) Non-Af BUN/Creatinine Ratio Glucose Calcium POC Glucose 222 H Micro: Microbiology 03/03/21 23:10 Stool Ova and Parasites - Final 03/06/21 07:45 Wound - Right Foot Gram Stain - Final 03/06/21 07:45 Wound - Right Foot Wound Culture - Final Streptococcus group C Staphylococcus aureus 03/06/21 07:45 Wound - Right Foot Anaerobic Culture - Final No anaerobic bacteria isolated. 03/03/21 21:45 Blood Culture (Wb) - Left Hand Blood Culture - Final No growth in 5 days. 03/03/21 19:55 Blood Culture (Wb) - Anticubital Left Blood Culture - Final No growth in 5 days. 03/05/21 09:25 Wound - Left Foot Gram Stain - Final 03/05/21 09:25 Wound - Left Foot Wound Culture - Final Providencia rettgeri Proteus mirabilis Staphylococcus aureus Streptococcus group C Gram positive elinor 03/05/21 09:25 Wound - Left Foot Anaerobic Culture - Final No anaerobic bacteria isolated. 03/03/21 20:30 Urine, Clean Catch Urine Culture - Final Mixed Gram Positive Organisms 03/03/21 23:10 Stool Stool Lactoferrin - Final 03/03/21 23:10 Stool Enteric Bacteriology - Final 03/03/21 23:10 Stool C. difficile DNA Amplification - Final 03/03/21 19:55 Mucosa - Nasopharyngeal Influenza Types A,B Direct FA (MIKE) - Final 03/03/21 19:55 Mucosa - Nasopharyngeal SARS-CoV-2 Antigen (Rapid) - Final Physical Exam Narrative GENERAL: cooperative HEENT: Atraumatic; EYES; Anicteric, Normal Conjunctiva NECK; supple, normal thyroid, RESPIRATORY: Diminished to auscultation CARDIOVASCULAR: Regular S1 S2, GI: soft, normoactive bowel sounds, : No Renal angle tenderness; EXTREMITIES: Both feet in dressing MUSCULOSKELETAL: no muscle waisting NEURO: Awake; no lateralizing signs. SKIN: No Rash PSYCH; Flat affect Assessment & Plan Assessment/Plan (1) [id number] kidney injury: QUALIFIERS: Acute renal failure type: unspecified Chronic kidney disease stage: stage 3 (moderate) Chronic kidney disease stage 3 subtype: stage 3a (GFR 45-59) Qualified Code(s): N17.9 - Acute kidney failure, unspecified; N18.31 - Chronic kidney disease, stage 3a (2) Gastroenteritis: (3) Sepsis: QUALIFIERS: Sepsis type: sepsis due to unspecified organism Sepsis acute organ dysfunction status: with acute organ dysfunction Severe sepsis acute organ dysfunction type: acute renal failure Acute renal failure type: unspecified Severe sepsis shock status: without septic shock Qualified Code(s): A41.9 - Sepsis, unspecified organism; R65.20 - Severe sepsis without septic shock; N17.9 - Acute kidney failure, unspecified PLAN: Patient is a 55-year-old lady admitted with generalized body aches, fever, nausea and vomiting and headache for 2 days. Evaluation was consistent with sepsis secondary to right foot abscess, started on broad-spectrum antibiotic therapy admitted to a monitored bed with consultation placed to podiatry. 1. Sepsis secondary to right foot abscess Microbiology results reviewed. Patient was managed with broad-spectrum antibiotic therapy with consultation placed to both podiatry and infectious disease 03/11/2021; patient was seen in consultation by Dr. Tello with infectious disease recommended discontinuation of linezolid and changing to p.o. Levaquin for 10 additional days 2. Anemia - Secondary to chronic disorder monitoring H&H and transfuse if patient becomes symptomatic or hemoglobin falls below 7 ?03/12/2021. Significant drop in patient hemoglobin level down to 7.4. Did request for iron studies as well as B12 levels 3. Diabetes mellitus type II -With complications including suspected gastroparesis and polyneuropathy placed on long acting insulin, Accu-Cheks a.c. and at bedtime and covered with sliding scale insulin 4. Acute congestive heart failure with preserved ejection fraction ?Echo obtained on 12/29/20 demonstrated EF of 55%. Patient has since been managed with Lasix 5. Gastroenteritis ?Managed symptomatically. Cultures negative to date 6. Chronic kidney disease stage III ?Patient presented with impaired kidney function. Baseline creatinine 1.28 creatinine as of this morning 1.86. 7. Hypertension - Blood pressure controlled, home medications continued with dose adjustment as needed 8. Coronary artery disease -With PCI to mid LAD lesion with a DARA on 01/01/21. Patient is currently on dual antiplatelet therapy and high intensity statin -03/10/2021 patient did develop chest pain the day prior EKG and cardiac enzymes came back negative 9. Dyslipidemia -Patient is on statin therapy, continued at home dose 10. Charcot feet -Was seen in consultation by podiatry recommendations reviewed 11. DVT prophylaxis - On enoxaparin 12. Physical deconditioning - Requested for PT OT eval and social science analyst to assist with discharge planning Charges/Coding Visit Charges Inpatient E&M: [id number] Subs Hosp L2
[2021-03-12 12:06] LABS: Bedside Glucose 287 mg/dL (70-110)
[2021-03-12 12:24] LABS: Iron 44 ug/dL (50-170); Iron Binding Capacity,Total 212 ug/dL (250-450); PERCENT IRON SATURATION 20.8 % (15.0-55.0)
[2021-03-12 12:33] LABS: Vitamin B12 624 pg/mL (211-911)
[2021-03-12 17:06] LABS: Bedside Glucose 138 mg/dL (70-110)
[2021-03-12] MEDS: Atorvastatin Calcium 80 MG Tablet PO (20:52)
[2021-03-12 21:06] LABS: Bedside Glucose 131 mg/dL (70-110)
[2021-03-12] MEDS: Zolpidem Tartrate 5 MG Tablet PO (22:09)
[2021-03-13 03:00] VITALS: PULSE 84
[2021-03-13 03:33] VITALS: BP 134/61; PULSE 80; RESP 16; TEMP 36.7; O2SAT 98
[2021-03-13] MEDS: levoFLOXacin 250 MG Tablet PO (05:51)
[2021-03-13] MEDS: Gabapentin 300 MG Capsule 900 MG PO ×2 (05:51→12:35)
[2021-03-13 07:00] VITALS: PULSE 83
--- NOTE | 2021-03-13 07:07 | CASEMGMT ---
Apparently the letter SW wrote for patient for patient's admitted attorneys was not enough and needs to show patient's condition is more critical. SW does not feel that is appropriate as patient's condition is not critical. As evidenced by the fact patient is not in ICU and she is medically ready for discharge. She is going to a retirement where she will be cared for until her comes in April. However, if her condition worsens while at the retirement they would be more than happy to write a letter to get patient's here sooner. Plan: [facility] pending pre-cert Kamilla Tinsley DAIRY EQUIPMENT SPECIALISTWanda MCCORD
[2021-03-13] MEDS: Insulin Lispro 100 UNIT/ML INSULN.PEN SC ×2 (08:22→12:33)
[2021-03-13] MEDS: Insulin Lispro 100 UNIT/ML INSULN.PEN 20 UNIT SC ×2 (08:23→12:33)
[2021-03-13] MEDS: Heparin Injection (Vial) 5,000 UNIT/ML VIAL 5000 UNIT SC (08:28)
[2021-03-13] MEDS: Aspirin 81 MG TAB.CHEW PO (08:30)
[2021-03-13] MEDS: Iron Polysaccharide Complex 150 MG CAPSULE PO (08:30)
[2021-03-13] MEDS: Isosorbide Mononitrate 30 MG Tablet PO (08:31)
[2021-03-13] MEDS: Pramipexole Di-HCl 1 MG Tablet 1.5 MG PO (08:31)
[2021-03-13] MEDS: Furosemide 40 MG Tablet PO (08:31)
[2021-03-13] MEDS: Clopidogrel Bisulfate 75 MG Tablet PO (08:32)
[2021-03-13 09:05] LABS: Bedside Glucose 257 mg/dL (70-110)
[2021-03-13 09:30] VITALS: BP 146/66; PULSE 88; RESP 18; TEMP 36.8; O2SAT 96
[2021-03-13] MEDS: LORazepam 2 MG/ML Syringe 0.5 MG IV (09:52)
[2021-03-13] MEDS: 0.9% Saline Lock 10 ML Syringe IV (09:53)
--- NOTE | 2021-03-13 10:28 | CASEMGMT ---
LUCRETIA called [facility] and spoke with Trinh. She still has not heard from insurance. LUCRETIA faxed her updates to send to insurance. Plan: [facility] pending pre-cert. Kamilla Tinsley MSW FLEX
--- NOTE | 2021-03-13 10:30 | PCM.PROGNOTE ---
Subjective Subjective Patient was seen this morning for follow up on bilateral foot ulcers. She is resting in bed, no complaints of fever, chills, nausea or vomiting. Objective Data Objective Data Vital Signs: Vital Signs Temp Pulse Resp BP Pulse Ox 98.0 F 83 16 134/61 H 98 03/13/21 03:33 03/13/21 07:00 03/13/21 03:33 03/13/21 03:33 03/13/21 03:33 Oxygen Flow Rate (L/min) 2 Oxygen Delivery Method Room Air Weight: 88 kg Body Mass Index (BMI) 31.3 Intake & Output: Intake and Output for Last 24 Hours 03/11/21 03/12/21 03/13/21 23:59 23:59 23:59 Intake Total 1120 / 1320 1040 / 1040 Output Total 300 / 300 Balance 1120 / 1320 740 / 740 Lab / Micro Data Result Diagrams: 03/12/21 06:20 03/12/21 06:20 Labs: Laboratory Results - last 24 hr 03/12/21 03/12/21 03/12/21 06:20 06:20 11:36 Iron 44 L TIBC 212 L Iron Saturation 20.8 Vitamin B12 624 POC Glucose 287 H 03/12/21 03/12/21 03/13/21 16:44 20:52 08:16 Iron TIBC Iron Saturation Vitamin B12 POC Glucose 138 H 131 H 257 H Micro: Microbiology 03/03/21 23:10 Stool Ova and Parasites - Final 03/06/21 07:45 Wound - Right Foot Gram Stain - Final 03/06/21 07:45 Wound - Right Foot Wound Culture - Final Streptococcus group C Staphylococcus aureus 03/06/21 07:45 Wound - Right Foot Anaerobic Culture - Final No anaerobic bacteria isolated. 03/03/21 21:45 Blood Culture (Wb) - Left Hand Blood Culture - Final No growth in 5 days. 03/03/21 19:55 Blood Culture (Wb) - Anticubital Left Blood Culture - Final No growth in 5 days. 03/05/21 09:25 Wound - Left Foot Gram Stain - Final 03/05/21 09:25 Wound - Left Foot Wound Culture - Final Providencia rettgeri Proteus mirabilis Staphylococcus aureus Streptococcus group C Gram positive elinor 03/05/21 09:25 Wound - Left Foot Anaerobic Culture - Final No anaerobic bacteria isolated. 03/03/21 20:30 Urine, Clean Catch Urine Culture - Final Mixed Gram Positive Organisms 03/03/21 23:10 Stool Stool Lactoferrin - Final 03/03/21 23:10 Stool Enteric Bacteriology - Final 03/03/21 23:10 Stool C. difficile DNA Amplification - Final 03/03/21 19:55 Mucosa - Nasopharyngeal Influenza Types A,B Direct FA (MIKE) - Final 03/03/21 19:55 Mucosa - Nasopharyngeal SARS-CoV-2 Antigen (Rapid) - Final Physical Exam Const alert and oriented x3 General Appearance: cooperative Extremity normal capillary refill and no calf tenderness General Extremity: edema right and other findings Other Details: Capillary refill time less than 3 seconds noted to digits bilateral foot ; Negative for clubbing or cyanosis Skin General Skin Exam: atrophy and dry skin; Negative for ecchymosis, erythema, eschar, pallor or dermatitis Rashes: no rashes Wounds: wounds noted Wound Narrative: Plantar left foot ulceration healthy and viable, it is healing, no surrounding maceration noted. There is no erythema or edema or malodor or purulence or other suggestion signs of infection. Wound is to the level of muscle/fat. Right foot ulceration plantar lateral foot, also wound to the lateral 5th met base, there is surrounding erythema which is again improved today, also erythema to the dorsal foot has resolved, there is some edema - improved, there is nonviable tissue present to the ulceration site with some scant purulent drainage noted, ulcer down to the fascia layer, no probe to bone - there is no maloder, no fluctuance, no crepitus, no streaking. 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 Charcot foot deformity noted bilaterally. No areas of acute ischemia to the foot or ankle bilateral. Neuro Sensory Exam: extremities light-touch: decreased Motor Exam: strength abnormal other (4/5 to all pedal muscle groups) Psych Appearance: appropriate Assessment & Plan Assessment/Plan (1) Charcot's joint of right foot: (2) Non-pressure chronic ulcer of other part of left foot with fat layer exposed: (3) Sepsis: QUALIFIERS: Sepsis type: sepsis due to unspecified organism Sepsis acute organ dysfunction status: with acute organ dysfunction Severe sepsis acute organ dysfunction type: acute renal failure Acute renal failure type: unspecified Severe sepsis shock status: without septic shock Qualified Code(s): A41.9 - Sepsis, unspecified organism; R65.20 - Severe sepsis without septic shock; N17.9 - Acute kidney failure, unspecified (4) [id number] kidney injury: QUALIFIERS: Acute renal failure type: unspecified Chronic kidney disease stage: stage 3 (moderate) Chronic kidney disease stage 3 subtype: stage 3a (GFR 45-59) Qualified Code(s): N17.9 - Acute kidney failure, unspecified; N18.31 - Chronic kidney disease, stage 3a (5) Gastroenteritis: (6) Delayed wound healing: (7) Amputation foot, bilat: (8) Charcot's joint of left foot: (9) Type 2 diabetes mellitus with diabetic polyneuropathy: QUALIFIERS: Diabetes mellitus extermination supervisor insulin use: with extermination supervisor use Qualified Code(s): E11.42 - Type 2 diabetes mellitus with diabetic polyneuropathy; Z79.4 - extermination supervisor (current) use of insulin (10) Non-pressure chronic 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 layer exposed: (11) Cellulitis of right foot: PLAN: Patient seen and examined bedside. Today there is again noted improvement to the right foot. Reviewed right foot MRI. There is evidence of Charcot neuroarthropathy. There is also noted findings consistent with ulcers and infection to the foot. Overall prognosis on right foot is guarded, as she has very poor blood sugar control and overall nonadherent with care to foot. Advised patient she is a high risk of eventual limb loss due to her uncontrolled diabetes and overall general nonadherence with following through on proper care which has been a chronic issue for her, now with Charcot neuroarthropathy with infection. Patient is last hemoglobin A1c was 13.1 on 12/29/2020 - patient noted to have overall very poor blood glucose control over long period of time - reviewed the importance of proper blood sugar control to help optimize wound and bone healing. There appears to be some improvement to the foot today. We will continue with antibiotic therapy, local wound care, nonweightbearing, and close monitoring. Patient agreed with this plan. Cultures have been obtained from both the right and left foot - results reviewed. Patient is on antibiotic therapy, Dr. Tello from Infectious Disease is on consult. Wound care right foot: pack with Iodoform gauze, and apply overlying Aquacel Ag, gauze, kerlix, abd pad and brando. Left foot: Aquacel Ag with overlying gauze, kerlix and brando dressing - change daily. Due acute Charcot event to the right foot nonweightbearing to her right foot has been recommended and advised. With ulceration to left foot is also not advisable for patient to weight-bear on her left foot. Recommend patient be wheelchair-bound. If patient needs to pivot to transfer can put weight through heel on left foot. Podiatry will continue to follow. Patient to follow-up with Dr. Cuevas at wound center on Tuesday03/17/2021 upon discharge.
[2021-03-13 11:00] VITALS: PULSE 84
--- NOTE | 2021-03-13 11:22 | PN.HOSP_ITS ---
Subjective Subjective Patient seen complains of extreme anxiety given 0.5 mg of Ativan. Insurance precertification pending Objective Data Objective Data Vital Signs: Vital Signs Temp Pulse Resp BP Pulse Ox 98.0 F 83 16 134/61 H 98 03/13/21 03:33 03/13/21 07:00 03/13/21 03:33 03/13/21 03:33 03/13/21 03:33 Oxygen Flow Rate (L/min) 2 Oxygen Delivery Method Room Air Weight: 88 kg Body Mass Index (BMI) 31.3 Intake & Output: Intake and Output for Last 24 Hours 03/11/21 03/12/21 03/13/21 23:59 23:59 23:59 Intake Total 1120 / 1320 1040 / 1040 Output Total 300 / 300 Balance 1120 / 1320 740 / 740 Lab / Micro Data Result Diagrams: 03/12/21 06:20 03/12/21 06:20 Labs: Laboratory Results - last 24 hr 03/12/21 03/12/21 03/12/21 06:20 06:20 11:36 Iron 44 L TIBC 212 L Iron Saturation 20.8 Vitamin B12 624 POC Glucose 287 H 03/12/21 03/12/21 03/13/21 16:44 20:52 08:16 Iron TIBC Iron Saturation Vitamin B12 POC Glucose 138 H 131 H 257 H Micro: Microbiology 03/03/21 23:10 Stool Ova and Parasites - Final 03/06/21 07:45 Wound - Right Foot Gram Stain - Final 03/06/21 07:45 Wound - Right Foot Wound Culture - Final Streptococcus group C Staphylococcus aureus 03/06/21 07:45 Wound - Right Foot Anaerobic Culture - Final No anaerobic bacteria isolated. 03/03/21 21:45 Blood Culture (Wb) - Left Hand Blood Culture - Final No growth in 5 days. 03/03/21 19:55 Blood Culture (Wb) - Anticubital Left Blood Culture - Final No growth in 5 days. 03/05/21 09:25 Wound - Left Foot Gram Stain - Final 03/05/21 09:25 Wound - Left Foot Wound Culture - Final Providencia rettgeri Proteus mirabilis Staphylococcus aureus Streptococcus group C Gram positive elinor 03/05/21 09:25 Wound - Left Foot Anaerobic Culture - Final No anaerobic bacteria isolated. 05/25/21 20:30 Urine, Clean Catch Urine Culture - Final Mixed Gram Positive Organisms 03/03/21 23:10 Stool Stool Lactoferrin - Final 03/03/21 23:10 Stool Enteric Bacteriology - Final 03/03/21 23:10 Stool C. difficile DNA Amplification - Final 03/03/21 19:55 Mucosa - Nasopharyngeal Influenza Types A,B Direct FA (MIKE) - Final 03/03/21 19:55 Mucosa - Nasopharyngeal SARS-CoV-2 Antigen (Rapid) - Final Physical Exam Narrative GENERAL: cooperative HEENT: Atraumatic; EYES; Anicteric, Normal Conjunctiva NECK; supple, normal thyroid, RESPIRATORY: Diminished to auscultation CARDIOVASCULAR: Regular S1 S2, GI: soft, normoactive bowel sounds, : No Renal angle tenderness; EXTREMITIES: Both feet in dressing MUSCULOSKELETAL: no muscle waisting NEURO: Awake; no lateralizing signs. SKIN: No Rash PSYCH; Flat affect Assessment & Plan Assessment/Plan (1) Mkeve-xl-auhhsxx kidney injury: QUALIFIERS: Acute renal failure type: unspecified Chronic kidney disease stage: stage 3 (moderate) Chronic kidney disease stage 3 subtype: stage 3a (GFR 45-59) Qualified Code(s): N17.9 - Acute kidney failure, unspecified; N18.31 - Chronic kidney disease, stage 3a (2) Gastroenteritis: (3) Sepsis: QUALIFIERS: Sepsis type: sepsis due to unspecified organism Sepsis acute organ dysfunction status: with acute organ dysfunction Severe sepsis acute organ dysfunction type: acute renal failure Acute renal failure type: unspecified Severe sepsis shock status: without septic shock Qualified Code(s): A41.9 - Sepsis, unspecified organism; R65.20 - Severe sepsis without septic shock; N17.9 - Acute kidney failure, unspecified PLAN: Patient is a 55-year-old lady admitted with generalized body aches, fever, nausea and vomiting and headache for 2 days. Evaluation was consistent with sepsis secondary to right foot abscess, started on broad-spectrum antibio tic therapy admitted to a monitored bed with consultation placed to podiatry. 1. Sepsis secondary to right foot abscess Microbiology results reviewed. Patient was managed with broad-spectrum antibio tic therapy with consultation placed to both podiatry and infectious disease 03/11/2021; patient was seen in consultation by Dr. Tello with infectious disease recommended discontinuation of linezolid and changing to p.o. Levaquin for 10 additional days 2. Anemia - Secondary to chronic disorder monitoring H&H and transfuse if patient becomes symptomatic or hemoglobin falls below 7 ?03/12/2021. Significant drop in patient hemoglobin level down to 7.4. Did request for iron studies as well as B12 levels 3. Diabetes mellitus type II -With complications including suspected gastroparesis and polyneuropathy placed on long acting insulin, Accu-Cheks a.c. and at bedtime and covered with sliding scale insulin 4. Acute congestive heart failure with preserved ejection fraction ?Echo obtained on 12/29/20 demonstrated EF of 55%. Patient has since been managed with Lasix 5. Gastroenteritis ?Managed symptomatically. Cultures negative to date 6. Chronic kidney disease stage III ?Patient presented with impaired kidney function. Baseline creatinine 1.28 creatinine as of this morning 1.86. 7. Hypertension - Blood pressure controlled, home medications continued with dose adjustment as needed 8. Coronary artery disease -With PCI to mid LAD lesion with a DARA on 01/01/21. Patient is currently on dual antiplatelet therapy and high intensity statin -03/10/2021 patient did develop chest pain the day prior EKG and cardiac enzymes came back negative 9. Dyslipidemia -Patient is on statin therapy, continued at home dose 10. Charcot feet -Was seen in consultation by podiatry recommendations reviewed 11. DVT prophylaxis - On enoxaparin 12. Physical deconditioning - Requested for PT OT eval and psychotherapist social worker to assist with discharge planning 13. Anxiety attack ?Patient was managed symptomatically with Ativan Charges/Coding Visit Charges Inpatient E&M: 18085 Subs Hosp L2
[2021-03-13 11:55] LABS: Hematocrit 26.2 % (37-47); Hemoglobin 8.1 g/dL (12.0-15.0); Mean Corp Hgb Conc 30.9 g/dL (32-36); Mean Corpuscular Hgb 28.4 pg (27.0-32.0); Mean Corpuscular Volume 91.9 fL (81-99); Mean Platelet Vol. 9.4 fl (6.2-12.0); Platelet Count 325 K/mm3 (150-450); RBC Distribution Width CV 13.4 % (11.6-14.6); Red Blood Count 2.85 M/mm3 (4.2-5.4); White Blood Count 11.5 K/mm3 (4.4-11.0)
[2021-03-13 12:07] LABS: Anion Gap 5 (5-15); BUN 46 mg/dL (7-18); BUN/Creat Ratio 26.9 RATIO (10-20); Calcium,Total 9.1 mg/dL (8.5-10.1); Chloride 101 mmol/L (98-107); Creatinine, Serum 1.71 mg/dL (0.55-1.02); EST Glomerular Filtration Rate 33 mL/min (>60); Est Glom Filt Rate - Afr Amer 40 mL/min (>60); Glucose 276 mg/dL (74-106); Magnesium 2.1 mg/dL (1.6-2.6); Potassium 4.4 mmol/L (3.5-5.1); Sodium Level 138 mmol/L (136-145)
[2021-03-13 13:16] LABS: Bedside Glucose 276 mg/dL (70-110)
--- NOTE | 2021-03-13 13:55 | DS.PCM_ITS ---
Providers Date of Admission: 03/03/21 Primary Care Physician: Dr. Raúl Eric MD Consultations 03/03/21 22:39 Consult: Onc/Wound/business ethics professor Routine Comment: Reason for Consult:: chronic left foot wound 03/04/21 16:35 Consult: Pediatrics Routine Consulting Provider: Joana Cuevas Reason for Consult: non healing ulcer to left foot EMERGENT Consult: No Notified: Yes Date Notified:: 03/04/21 Time Notified: 16:35 Method of Notification: via tool room gear machine operator Reason for Consult: non healing ulcer to left foot EMERGENT Consult: No Notified: Yes Date Notified:: 03/04/21 Time Notified: 16:35 Method of Notification: via tool room gear machine operator 03/09/21 09:56 Consult: Infectious Disease Routine Consulting Provider: Kike Tello Reason for Consult: osteomyelitis EMERGENT Consult: No Notified: Yes Date Notified:: 03/09/21 Time Notified: 09:56 Method of Notification: Text Reason For Visit: SEPSIS, FELI ON CKD, GASTROENTERITIS Diagnosis Discharge Diagnosis (1) Quorj-ca-jchbdhh kidney injury: Status: Chronic Code(s): N17.9 - Acute kidney failure, unspecified; N18.9 - Chronic kidney disease, unspecified Qualifiers: Acute renal failure type: unspecified Chronic kidney disease stage: stage 3 (moderate) Chronic kidney disease stage 3 subtype: stage 3a (GFR 45-59) Qualified Code(s): N17.9 - Acute kidney failure, unspecified; N18.31 - Chronic kidney disease, stage 3a (2) Gastroenteritis: Status: Acute Code(s): K52.9 - Noninfective gastroenteritis and colitis, unspecified (3) Sepsis: Status: Acute Code(s): A41.9 - Sepsis, unspecified organism Qualifiers: Sepsis type: sepsis due to unspecified organism Sepsis acute organ dysfunction status: with acute organ dysfunction Severe sepsis acute organ dysfunction type: acute renal failure Acute renal failure type: unspecified Severe sepsis shock status: without septic shock Qualified Code(s): A41.9 - Se psis, unspecified organism; R65.20 - Severe sepsis without septic shock; N17.9 - Acute kidney failure, unspecified Medications at Discharge Home Medications atorvastatin 80 mg tablet 80 mg PO QHS #90 tablet 11/30/19 insulin lispro 20 unit SC TIDCM 08/31/20 paroxetine HCl 40 mg PO QHS 09/12/20 polysaccharide iron complex 150 mg PO DAILYCM 09/12/20 pramipexole 1.5 mg PO BID 09/12/20 aspirin 81 mg PO DAILY@0800 tab.chew 11/15/20 clopidogrel 75 mg PO DAILY #0 tablet 01/01/21 gabapentin 300 mg capsule 900 mg PO TID cap 01/20/21 insulin glargine 100 unit/mL (3 mL) subcutaneous pen 30 unit SC DAILY ml 01/20/21 nitroglycerin 0.4 mg sublingual tablet 0.4 mg SL Q5-15M PRN #25 tablet 01/20/21 isosorbide mononitrate 30 mg PO DAILY 03/03/21 acetaminophen [Tylenol] 650 mg PO Q6H PRN PRN #0 tab 03/13/21 fxwua-ulcg-ZtWDP-zyqfdl-on-ksi [Ted (with collagen)] 1 packet PO BIDCM #0 ea 03/13/21 levofloxacin 250 mg PO DAILY@0600 #0 tab 03/13/21 nut.tx.gluc intol,lf,soy-fiber [Glucerna 1.2 Howie] 120 ml PO 4X/DAY #0 ml 03/13/21 oxycodone 5 mg PO Q6H PRN PRN 3 Days #12 tab 03/13/21 peg [id number] [Artificial Tears(xk-fvuk-zrsq)] 2 drp EACH EYE Q1H PRN #0 ml 03/13/21 Hospital Course Summary of Care Provided Minutes Spent on Discharge: 50 Hospital Course: Patient is a 55-year-old lady admitted with generalized body aches, fever, nausea and vomiting and headache for 2 days. Evaluation was consistent with sepsis secondary to right foot abscess, started on broad- spectrum antibiotic therapy admitted to a monitored bed with consultation placed to podiatry. 1. Sepsis secondary to right foot abscess Microbiology results reviewed. Patient was managed with broad-spectrum antibiotic therapy with consultation placed to both podiatry and infectious disease 03/11/2021; patient was seen in consultation by Dr. Tello with infectious disease recommended discontinuation of linezolid and changing to p.o. Levaquin for 10 additional days 2. Anemia - Secondary to chronic disorder monitoring H&H and transfuse if patient becomes symptomatic or hemoglobin falls below 7 ?03/12/2021. Significant drop in patient hemoglobin level down to 7.4. Did request for iron studies as well as B12 levels 3. Diabetes mellitus type II -With complications including suspected gastroparesis and polyneuropathy placed on long acting insulin, Accu-Cheks a.c. and at bedtime and covered with sliding scale insulin 4. Acute congestive heart failure with preserved ejection fraction ?Echo obtained on 12/29/20 demonstrated EF of 55%. Patient has since been managed with Lasix 5. Gastroenteritis ?Managed symptomatically. Cultures negative to date 6. Chronic kidney disease stage III ?Patient presented with impaired kidney function. Baseline creatinine 1.28 creatinine as of this morning 1.86. 7. Hypertension - Blood pressure controlled, home medications continued with dose adjustment as needed 8. Coronary artery disease -With PCI to mid LAD lesion with a DARA on 01/01/21. Patient is currently on dual antiplatelet therapy and high intensity statin -03/10/2021 patient did develop chest pain the day prior EKG and cardiac enzymes came back negative 9. Dyslipidemia -Patient is on statin therapy, continued at home dose 10. Charcot feet -Was seen in consultation by podiatry recommendations reviewed 11. DVT prophylaxis - On enoxaparin 12. Physical deconditioning - Requested for PT OT eval and high school social science teacher to assist with discharge planning 13. Anxiety attack ?Patient was managed symptomatically with Ativan Physical Exam Narrative GENERAL: cooperative HEENT: Atraumatic; EYES; Anicteric, Normal Conjunctiva NECK; supple, normal thyroid, RESPIRATORY: Diminished to auscultation CARDIOVASCULAR: Regular S1 S2, GI: soft, normoactive bowel sounds, : No Renal angle tenderness; EXTREMITIES: Both feet in dressing MUSCULOSKELETAL: no muscle waisting NEURO: Awake; no lateralizing signs. SKIN: No Rash PSYCH; Flat affect ABG / Lab / Microbiology Data Result Diagrams: 03/13/21 11:47 03/13/21 11:47 Laboratory: Laboratory Results - last 24 hr 03/12/21 03/12/21 03/13/21 16:44 20:52 08:16 WBC RBC Hgb Hct MCV MCH MCHC RDW Std Deviation RDW Coeff of Fior Plt Count MPV Sodium Potassium Chloride Carbon Dioxide Anion Gap BUN Creatinine Estim Creat Clear Calc Est GFR (MDRD) Af Amer Est GFR (MDRD) Non-Af BUN/Creatinine Ratio Glucose Calcium Magnesium POC Glucose 138 H 131 H 257 H 03/13/21 03/13/21 03/13/21 11:47 11:47 12:32 WBC 11.5 H RBC 2.85 L Hgb 8.1 L Hct 26.2 L MCV 91.9 MCH 28.4 MCHC 30.9 L RDW Std Deviation 45.0 H RDW Coeff of Fior 13.4 Plt Count 325 MPV 9.4 Sodium 138 Potassium 4.4 Chloride 101 Carbon Dioxide 32.0 Anion Gap 5 BUN 46 H Creatinine 1.71 H Estim Creat Clear Calc 34.80 Est GFR (MDRD) Af Amer 40 L Est GFR (MDRD) Non-Af 33 L BUN/Creatinine Ratio 26.9 H Glucose 276 H Calcium 9.1 Magnesium 2.1 POC Glucose 276 H Microbiology: Microbiology 03/03/21 23:10 Stool Ova and Parasites - Final 03/06/21 07:45 Wound - Right Foot Gram Stain - Final 03/06/21 07:45 Wound - Right Foot Wound Culture - Final Streptococcus group C Staphylococcus aureus 03/06/21 07:45 Wound - Right Foot Anaerobic Culture - Final No anaerobic bacteria isolated. 03/03/21 21:45 Blood Culture (Wb) - Left Hand Blood Culture - Final No growth in 5 days. 03/03/21 19:55 Blood Culture (Wb) - Anticubital Left Blood Culture - Final No growth in 5 days. 03/05/21 09:25 Wound - Left Foot Gram Stain - Final 03/05/21 09:25 Wound - Left Foot Wound Culture - Final Providencia rettgeri Proteus mirabilis Staphylococcus aureus Streptococcus group C Gram positive elinor 03/05/21 09:25 Wound - Left Foot Anaerobic Culture - Final No anaerobic bacteria isolated. 03/03/21 20:30 Urine, Clean Catch Urine Culture - Final Mixed Gram Positive Organisms 03/03/21 23:10 Stool Stool Lactoferrin - Final 03/03/21 23:10 Stool Enteric Bacteriology - Final 03/03/21 23:10 Stool C. difficile DNA Amplification - Final 03/03/21 19:55 Mucosa - Nasopharyngeal Influenza Types A,B Direct FA (MIKE) - Final 03/03/21 19:55 Mucosa - Nasopharyngeal SARS-CoV-2 Antigen (Rapid) - Final D/C Instructions Discharge Diet: 1800 Calorie Control Diet Discharge Activity: Return to Normal Activity Weight Bearing Status: No weight bearing (Strict non weightbearing right foot. Can put weight on left heel only for transitions - otherwise no weightbearing left foot.) and - Keep extremity elevated above heart level: - (Keep feet elevated as much as possible, keep heels offloaded with pillows.) Call your doctor if your incision/area has: Continuous Slow Oozing, Sudden Increased Bleeding, Increased Pain/ Swelling, Increased Redness and Foul Smelling Discharge Call your doctor if you observe: Fever of 101 or Higher Cleanse incision/area with: - Additional Dressing/Incision Instructions: Wound care right foot: cleanse with normal saline solution, pack deeper open areas plantar lateral foot with Iodoform gauze, and apply Aquacel Ag to rest of wound site with overlying gauze, kerlix, abd pad and myla. Left foot: Cleanse with normal saline solution. Apply Aquacel Ag with overlying gauze, kerlix and myla dressing - change daily. Please Follow Up With: Joana Cuevas DPM When: Next Tuesday at wound center. Meaningful Use Info Meaningful Use Diagnoses (Choose all that apply): None applicable Discharge Plan Admission Admit Date/Time: 03/03/21 21:49 Primary Reason for Your Visit: Sepsis secondary to right foot abscess Attending Provider: Rodney Yates Primary Care Provider: Raúl Eric Consulting Providers: Joana Cuevas ; Kike Tello Instructions Patient Instructions: ED Chest Pain, Noncardiac Additional Instructions / Restrictions: Cleanse bilateral foot wounds daily with soap and water. pat dry. pack the central right plantar and right lateral foot wounds with iodoform gauze and place Aquacel AG to bilateral plantar foot wounds. cover with 4x4 gauze pads, ABD pads, and wrap with kerlix. apply MYLA wraps to help hold dressings in place. change daily and prn. Discharge Orders/Prescriptions Prescriptions: New acetaminophen [Tylenol] 325 mg Tablet 650 mg PO Q6H PRN PRN (Reason: Pain Score 1-10/Temp > 100.7 F) Qty: 0 RF: 0 levofloxacin 250 mg Tablet 250 mg PO DAILY@0600 Qty: 0 RF: 0 oxycodone 5 mg Tablet 5 mg PO Q6H PRN PRN (Reason: Pain Score 6-10) 3 Days Qty: 12 RF: 0 Artificial Tears(yj-pvzg-ogsu) 1-0.2-0.2 % Drops 2 drp EACH EYE Q1H PRN (Reason: DRY EYES) Qty: 0 RF: 0 Glucerna 1.2 Howie 0.06-1.2 gram-kcal/mL Liquid 120 ml PO 4X/DAY Qty: 0 RF: 0 Ted (with collagen) 7-7-1.5 gram Powder In Packet 1 packet PO BIDCM Qty: 0 RF: 0 Continued atorvastatin 80 mg tablet 80 mg PO QHS Qty: 90 RF: 3 gabapentin 300 mg capsule 900 mg PO TID RF: 0 nitroglycerin 0.4 mg tablet, sublingual 0.4 mg SL Q5-15M PRN (Reason: chest pain) Qty: 25 RF: 3 insulin lispro 100 UNIT/ML insulin pen 20 unit SC TIDCM RF: 0 pramipexole 1 MG tablet 1.5 mg PO BID RF: 0 polysaccharide iron complex 150 MG capsule 150 mg PO DAILYCM RF: 0 paroxetine HCl 20 MG tablet 40 mg PO QHS RF: 0 insulin glargine 100 unit/mL (3 mL) insulin pen 30 unit SC DAILY RF: 0 aspirin 81 MG tablet,chewable 81 mg PO DAILY@0800 RF: 0 clopidogrel 75 MG tablet 75 mg PO DAILY Qty: 0 RF: 0 isosorbide mononitrate 30 mg tablet extended release 24 hr 30 mg PO DAILY RF: 0 Referrals / Follow Up: Joana Cuevas DPM [STAFF PHYSICIAN] - See Referral Note (at wound care center on Tuesday with Dr Cuevas [phone]) Raúl Eric MD [Primary Care Provider] - Within 2 Weeks Disposition Disposition (needs filled in before D/C Order can be placed): Intermediate Facility Charges/Coding Visit Charges Inpatient E&M: 70923 Disch Hosp
--- NOTE | 2021-03-13 14:08 | PCM.TXEXTCAR ---
Diet 03/09/21 12:04 Diet: Cardiac: Calorie-Controlled Food consistency:: Regular Liquid Consistency:: Regular/Thin Dietary Modifications:: Cardiac / Heart Healthy Type of Dietary Supplement:: Is pt able to select menu?: Yes How many daily calories?: 1800 calorie Wound(s) LLE: Wound Type: Neuropathic/Diabetic Foot Ulcer RLE: Wound Type: blister right plantar foot: Wound Type: Neuropathic/Diabetic Foot Ulcer Dressing Change: iodoform packing and Aquacel AG left plantar foot: Wound Type: Neuropathic/Diabetic Foot Ulcer Dressing Change: AntiMicrobial (Aquacel AG, etc) Therapies Weight Bearing: Non weight bearing Physical Therapy: Eval and Treat Occupational Therapy: Eval and Treat Problem/Diagnosis (1) Blytr-io-stcvdlt kidney injury: Status: Chronic (2) Gastroenteritis: Status: Acute (3) Sepsis: Status: Acute Allergies/Procedures Done in Hospital Allergies oxycodone [From OxyContin] Allergy (Verified 03/05/21 14:11) feels like I'm drowning Penicillins Allergy (Verified 03/03/21 22:43) swelling in throat vancomycin Allergy (Verified 03/03/21 19:31) Itching metronidazole Adverse Reaction (Verified 03/03/21 19:31) Nausea Type of Care/Length of Stay Estimated LOS: Convalescent Care Less Than 30 days Type of Care Needed: Skilled Rehab Potential: Good Prognosis: Good Additional Orders/Day of Discharge Additional Orders: Please have mental health services follow up w/pt while at SNF Day of Discharge: 03/13/21 Dietary and Speech Recommendations Dietitian Recommendations/Changes: Continue cardiac-heart healthy consistent carb calorie controlled 1800 kcal diet. Continue glucerna 120mL PO 4x/day at [facility] Pt wants 1 packet ted [facility] Please Follow Up With: Joana Cuevas DPM Discharge Plan Admission Admit Date/Time: 03/03/21 21:49 Primary Reason for Your Visit: Sepsis secondary to right foot abscess Attending Provider: Rodney Yates Primary Care Provider: Raúl Eric Consulting Providers: Joana Cuevas ; Kike Tello Instructions Patient Instructions: ED Chest Pain, Noncardiac Additional Instructions / Restrictions: Cleanse bilateral foot wounds daily with soap and water. pat dry. pack the central right plantar and right lateral foot wounds with iodoform gauze and place Aquacel AG to bilateral plantar foot wounds. cover with 4x4 gauze pads, ABD pads, and wrap with kerlix. apply MYLA wraps to help hold dressings in place. change daily and prn. Discharge Orders/Prescriptions Prescriptions: New acetaminophen [Tylenol] 325 mg Tablet 650 mg PO Q6H PRN PRN (Reason: Pain Score 1-10/Temp > 100.7 F) Qty: 0 RF: 0 levofloxacin 250 mg Tablet 250 mg PO DAILY@0600 Qty: 0 RF: 0 oxycodone 5 mg Tablet 5 mg PO Q6H PRN PRN (Reason: Pain Score 6-10) 3 Days Qty: 12 RF: 0 Artificial Tears(kt-lsvk-vmev) 1-0.2-0.2 % Drops 2 drp EACH EYE Q1H PRN (Reason: DRY EYES) Qty: 0 RF: 0 Glucerna 1.2 Howie 0.06-1.2 gram-kcal/mL Liquid 120 ml PO 4X/DAY Qty: 0 RF: 0 Ted (with collagen) 7-7-1.5 gram Powder In Packet 1 packet PO BIDCM Qty: 0 RF: 0 Continued atorvastatin 80 mg tablet 80 mg PO QHS Qty: 90 RF: 3 gabapentin 300 mg capsule 900 mg PO TID RF: 0 nitroglycerin 0.4 mg tablet, sublingual 0.4 mg SL Q5-15M PRN (Reason: chest pain) Qty: 25 RF: 3 insulin lispro 100 UNIT/ML insulin pen 20 unit SC TIDCM RF: 0 pramipexole 1 MG tablet 1.5 mg PO BID RF: 0 polysaccharide iron complex 150 MG capsule 150 mg PO DAILYCM RF: 0 paroxetine HCl 20 MG tablet 40 mg PO QHS RF: 0 insulin glargine 100 unit/mL (3 mL) insulin pen 30 unit SC DAILY RF: 0 aspirin 81 MG tablet,chewable 81 mg PO DAILY@0800 RF: 0 clopidogrel 75 MG tablet 75 mg PO DAILY Qty: 0 RF: 0 isosorbide mononitrate 30 mg tablet extended release 24 hr 30 mg PO DAILY RF: 0 Referrals / Follow Up: Joana Cuevas DPM [STAFF PHYSICIAN] - See Referral Note (at wound care center on Tuesday with Dr Cuevas [phone]) Raúl Eric MD [Primary Care Provider] - Within 2 Weeks Disposition Disposition (needs filled in before D/C Order can be placed): Nursing Home Facility
--- NOTE | 2021-03-13 14:08 | PHA.DC.MR ---
Pharmacy Service has performed discharge medication reconciliation for this patient. The patient's discharge medication list was reviewed for discrepancies and discrepancies were resolved. Home Medications atorvastatin 80 mg tablet 80 mg PO QHS #90 tablet 11/30/19 insulin lispro 20 unit SC TIDCM 08/31/20 paroxetine HCl 40 mg PO QHS 09/12/20 polysaccharide iron complex 150 mg PO DAILYCM 09/12/20 pramipexole 1.5 mg PO BID 09/12/20 aspirin 81 mg PO DAILY@0800 tab.chew 11/15/20 clopidogrel 75 mg PO DAILY #0 tablet 01/01/21 gabapentin 300 mg capsule 900 mg PO TID cap 01/20/21 insulin glargine 100 unit/mL (3 mL) subcutaneous pen 30 unit SC DAILY ml 01/20/21 nitroglycerin 0.4 mg sublingual tablet 0.4 mg SL Q5-15M PRN #25 tablet 01/20/21 isosorbide mononitrate 30 mg PO DAILY 03/03/21 acetaminophen [Tylenol] 650 mg PO Q6H PRN PRN #0 tab 03/13/21 tzczz-nbik-QiJCB-anhsje-fo-oyx [Ted (with collagen)] 1 packet PO BIDCM #0 ea 03/13/21 levofloxacin 250 mg PO DAILY@0600 #0 tab 03/13/21 nut.tx.gluc intol,lf,soy-fiber [Glucerna 1.2 Howie] 120 ml PO 4X/DAY #0 ml 03/13/21 oxycodone 5 mg PO Q6H PRN PRN 3 Days #12 tab 03/13/21 peg [id number]-opmclajh [Artificial Tears(gq-zjld-xilm)] 2 drp EACH EYE Q1H PRN #0 ml 03/13/21
[2021-03-13 14:55] VITALS: BP 146/66; PULSE 88; RESP 18; TEMP 36.8; O2SAT 96
--- NOTE | 2021-03-13 14:59 | CASEMGMT ---
Addendum entered by Kamilla Tinsley 03/13/21 15:10: COVID test returned negative. LUCRETIA arranged for patient to get picked up at [facility] via van. LUCRETIA faxed negative COVID to [facility]. LUCRETIA notified RN, construction secretary, and Lexie at [facility] of pickler helper time. Plan: d/c to [facility] under skilled level of care on a convalescent stay. Physicians transported patient via van. Kamilla MCCORD Original Note: LUCRETIA received a call from Lexie at [facility]. Patient was approved. LUCRETIA notified physician. Orders completed. LUCRETIA faxed orders to [facility]. LUCRETIA let patient know she was approved and will be leaving today. LUCRETIA notified RN and construction secretary as well. Once negative COVID comes back LUCRETIA will arrange transport. LUCRETIA completed a convalescent on [facility]. Kamilla MCCORD
--- NOTE | 2021-03-13 15:34 | NURSING ---
Report called to [facility] for pt d/c to facility. Call took 20 minutes, after being on hold and being transferred to several nurses.
== END 2021-03-13 15:47 | disposition skilled nursing facility (03) | DRG 571 ==
LOC: ED 21:24 → MS3 21:52 → PCU 03-09 07:11
PROVIDERS: Podiatrist Foot & Ankle Surgery; Admitting Provider Hospitalist; Emergency Provider Emergency Medicine; PCP Family Medicine; Visit Provider Internal Medicine
DX: L02.611 Cutaneous abscess of right foot (principal); I13.0 Hypertensive heart and chronic kidney disease with heart failure and stage 1 through stage 4 chronic kidney disease, or unspecified chronic kidney disease; L97.412 Non-pressure chronic ulcer of right heel and midfoot with fat layer exposed; N17.9 Acute kidney failure, unspecified; I50.32 Chronic diastolic (congestive) heart failure; L97.422 Non-pressure chronic ulcer of left heel and midfoot with fat layer exposed; L97.425 Non-pressure chronic ulcer of left heel and midfoot with muscle involvement without evidence of necrosis; E11.610 Type 2 diabetes mellitus with diabetic neuropathic arthropathy; D63.8 Anemia in other chronic diseases classified elsewhere; E11.42 Type 2 diabetes mellitus with diabetic polyneuropathy; E11.22 Type 2 diabetes mellitus with diabetic chronic kidney disease; E11.621 Type 2 diabetes mellitus with foot ulcer; E11.65 Type 2 diabetes mellitus with hyperglycemia; N18.31 Chronic kidney disease, stage 3a; A08.4 Viral intestinal infection, unspecified; E86.0 Dehydration; I25.5 Ischemic cardiomyopathy; I25.10 Atherosclerotic heart disease of native coronary artery without angina pectoris; E78.5 Hyperlipidemia, unspecified; G25.81 Restless legs syndrome; K21.9 Gastro-esophageal reflux disease without esophagitis; F32.9 Major depressive disorder, single episode, unspecified; Z20.822 Contact with and (suspected) exposure to COVID-19
CPT/HCPCS: 36415; 36569; 71045; 71046; 73630; 73718; 74176; 76770; 80048; 80053; 81001; 82607; 82962; 83540; 83550; 83605; 83630; 83690; 83735; 84484; 85025; 85027; 85610; 85652; 85730; 86140; 87040; 87070; 87075; 87077; 87086; 87088; 87177; 87186; 87205; 87209; 87426; 87493; 87506; 87640; 87804; 93005; 93971; 97110; 97116; 97162; 97166; 97530; 97535; 97802; 97803; 99251; 99285; J2020; J2185; J7030; J7040; J7050; A4216; G0463; J1940; J2405

== ENCOUNTER 2021-04-07 10:00 | Outpatient (RCR) | payer MEDICARE, MEDICAID, SELFPAY ==
[2018-09-21 13:23] VITALS: BMI 29.3
[2021-03-10 00:14] VITALS: BP 142/65; PULSE 92; RESP 16; TEMP 35.9
[2021-03-17 10:45] VITALS: BP 131/64; PULSE 89; RESP 18; TEMP 36.6; BMI 31.3
--- NOTE | 2021-03-18 16:45 | PCM.WC.PN ---
History of Present Illness Date of Service: 03/17/21 Chief Complaint: Right ankle diabetic ulcer- healed left foot ulcer History of Wound: Patient is a 55-year-old female who presents to the clinic for follow-up of hospital stay for a left foot chronic ulceration. Patient had MRI on 09/01/2020 showing 1. Large 5.81 x 1.70 cm open skin defect/wound on the lateral plantar aspect of the foot contains fluid and debris and can be a infected. The investing fascia and the plantar aspect of the foot beneath the fourth metatarsal bone encloses the complex fluid collection, and there is no demonstrated intramuscular extension or contact with the overlying bony structures. 2. Mild cortical irregularity is present at the base and plantar and lateral aspect of the fifth metatarsal bone and cuboid which could be related to prior infection or sequela from previous trauma. 3. No active bone marrow edema or cortical erosion is seen to suggest active osteomyelitis. Patient had an I&D performed in the hospital by Dr. Guadarrama on 09/08/2020. That time patient was noted to have infection to left foot wound with Staphylococcus and Enterobacter which was treated during her stay at the hospital and TCU. Patient has had this ulceration for quite some time. 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 Patient also was noted to have bilateral varus foot deformity. Patient has a noted history of poor compliance of medical recommendations. Patient presents to the office ambulating in TCC unassisted. Patient was noted to have course of antibiotics while in the hospital in August 2020. Since being discharged from the hospital August 2020 patient has missed several of her follow-up appointments including here at the wound care center as well as with her primary care physician. She states issues with transportation. Patient missed follow-up appointment with infectious disease on November 12, 2020. She states that she saw them 11/26/2020. She states he didn't do anything She was admitted to the hospital 11/14/20 for altered mental status. She was found to have had 2 mini strokes per patient. The TCC was removed at that time and patient was to resume wound vac. Culture was obtained in the hospital growing enterobacter cloacae, klebsiella oxytoca, corynebacterium striatum, and enterococcus faecalis. This wasn't treated while in the hospital. Dr Tello was contacted and he started her on linezolid and omnicef 12/02/20. She has since finished this. Patient also relates that she is largely non weight bearing by sitting in a chair or on the couch she also uses a wheelchair at home. She states she moved back in with her daughter. She does admit to walking around without the boot to protect the total contact cast. She has broken the TCC multiple times She does admit to external rotation of the lower extremities which could be a contributing factor to ulcer breakdown of the right lateral ankle. She also admits to having offloading boot that she does not wear at night as she states she kicks it off due to her restless leg syndrome. This has since healed- right lateral ankle She relates that she has a in [place] and visits him for months at a time when she has the funds. This has contributed to her noncompliance Patient expresses concern over losing her was acute Charcot but seems reluctant to follow treatment recommendations. She does not seem willing or capable to follow instructions. Patient was recently at the hospital for gastroenteritis. Patient also noted that time to have worsening right foot with acute Charcot foot noted on x-ray and MRI. Patient was also noted to have multiple new blisters formed during hospital stay with wounds that remain. It was determined during hospital visit the patient was not stable not to go to the operating room. Bedside debridements and cultures were obtained. Patient was started on Levaquin per infectious disease. Patient is to continue wound care and has since followed up with the wound care center. Right foot wound culture from 03/06/2021 with significant for bacterial growth of staph aureus and strep group C. Left foot wound did not appear clinically infected but was polymicrobial upon culture on 03/05/2021. MRI obtained of the right foot was negative for osteomyelitis but showed small focal abscess to lateral plantar foot. Progress of Wound: Worsening of right foot wound stable left foot wound Subjective Subjective Patient seen and examined resting comfortably. Patient denies any new pedal complaints. Patient denies any nausea, fever, chills, chest pain, shortness of breath, cough, streaking, purulence, vomiting. Patient noted to be at a assisted living facility at this time. Patient states that she has been able to partially be compliant with her weightbearing status. She does request that she be able to transfer on the left foot with her heel as well as her toes as long she does not put weight through the ulceration site midfoot. Objective Data Objective Data Vital Signs: Vital Signs Temp Pulse Resp BP 97.8 F 89 18 131/64 H 03/17/21 10:45 03/17/21 10:45 03/17/21 10:45 03/17/21 10:45 Weight: 91.138 kg Body Mass Index (BMI) 31.3 Physical Exam Narrative Const alert General Appearance: cooperative Extremity normal capillary refill and no calf tenderness General Extremity: edema bilateral lower extremity, no tenderness to palpation of joints or extremities and other findings Other Details: Capillary refill time less than 3 seconds noted to digits ; Negative for clubbing or cyanosis Skin General Skin Exam: atrophy and dry skin; Negative for ecchymosis, erythema, eschar, pallor or dermatitis Rashes: no rashes Wounds: wounds noted Wound Narrative: plantar left foot ulceration appears improved than upon examination. No maceration noted. There is no erythema or edema or malodor or purulence or other suggestion signs of infection. Wound is to the level of muscle/fat. Serous drainage noted. Right foot has worsened with more slough noted. There is blistering skin noted periwound plantarly. There is remaining edema and erythema. No fluctuation. No purulent drainage expressed from wound. Area of most concern around the plantar fifth styloid process area of potential deeper area. This area has most amount of slough and fibrous tissue noted. This is also the area of most edema no appreciable absence is felt. To the level of muscle. There are 2 areas to the plantar wound that probes deeper. There is no pain to palpation of movement of this joint. Muscle strength is intact. Serous sanguinous drainage noted. Right lateral foot wound is fibrotic base with surrounding edema and erythema. Wound probes to fascia. Serosanguineous drainage noted. No purulence expressed. Does not probe to bone. No fluctuation or evidence of underlying abscess noted. No malodor noted. 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 Charcot foot deformity noted bilaterally. DP and PT are diminished bilaterally Neuromuscular Sensory Exam: extremities light-touch: decreased Motor Exam: strength abnormal other (4/5 to all pedal muscle groups) There is foot and Charcot deformities noted to bilateral feet with prominent plantar lateral feet collapse Psych Appearance: appropriate Debridement Note Debridement Note Post-Debridement Measurements and Additional Note: Post-Debridement Measurements/Treatment WC - Nurse 1 - General Ulcer Assessment Start: 03/17/21 10:45 Freq: Status: Active Protocol: TENNILLE.HARMONY Activity Type Activity Date Activity User E-Sign Co-Sign Detail Recorded Client Recorded Date Recorded By Document 03/17/21 10:45 DL [id number] 03/17/21 11:04 DL 03/17/21 10:45 WC - Today's Visit Information Type of service Follow-up Visit (Physician/INSPECTOR WATER POLLUTION CONTROL ) Arrival Mode Ambulatory Transfer Assistance None Patient Identification Verified (Name & Yes ) Patient Requires Transmission-Based No Precautions Finger Stick Blood Sugar(mg/dl) (if 269 indicated): Blood Sugar Stated by Patient Height and Weight Body Mass Index (BMI) 31.3 BMI Classification Obese Vital Signs Temperature (97.8 F-99.1 F) 97.8 F Temperature Source Temporal Pulse Rate (60-100) 89 Pulse Location Monitor Respiratory Rate (12-18) 18 Respiratory rate source Observation Blood Pressure (90/60-120/80) 131/64 H Blood Pressure Mean (mm Hg) 86 Source Monitor History Since Last Visit- (Skip if this is Patient's initial visit) Have you changed medications since your No last visit? Any new allergies or adverse reactions No Had a fall/change in ADL's that may No increase risk of falls Signs or symptoms of abuse and/or No neglect since last visit Have you been in the hospital since your No last visit? Has dressing in place as prescribed Yes Has compression in place as prescribed Yes Has offloadiing in place as prescribed Yes Experienced any changes in pain level or No management Left Footwear No Footwear Right Footwear No Footwear Pain Scale: 0-10 Numeric Is Patient Pain Free? Yes - Nurse 1 - General Ulcer Measurement Start: 03/17/21 10:45 Freq: Status: Active Protocol: Activity Type Activity Date Activity User E-Sign Co-Sign Detail Recorded Client Recorded Date Recorded By Document 03/17/21 10:45 ZAYRA [id number] 03/17/21 11:04 DL 03/17/21 10:45 Wound Center Nurse 1 #19 R Plantar Cluster -Current Size (cm) - Length 5.5 -Current Size (cm) - Width 3 -Current Size (cm) - Depth 0.4 -Total Square Cm 16.5 -Photo Taken Yes -Exudate Amt Medium -Exudate Type Serosanguineous -Wound Margin Distinct, Outline Attached -Granulation Amt Medium (34-66%) -Granulation Quality Pale,[place] -Necrosis Amt Medium (34-66%) -Necrotic Tissue Type Adherent Slough -Structure Exposed None/Limited to Skin Breakdown -Texture (Natacha-wound Skin Appearance) Localized Edema ,Scarring -Moisture (Natacha-wound Skin Appearance) Maceration -Color (Natacha-wound Skin Appearance) Erythema -Temperature (Natacha-wound Skin No Abnormality Appearance) (Pt Warm) -Tenderness on Palpation (Natacha-wound No Skin Appearance) -Ulcer Cleansing Wound Cleanser -Foul Odor after Cleansing No -Anesthetic Used 4% Lidocaine Solution #18 R Lat -Current Size (cm) - Length 0.8 -Current Size (cm) - Width 0.5 -Current Size (cm) - Depth 0.6 -Total Square Cm 0.40 -Photo Taken Yes -Exudate Amt Small -Exudate Type Serosanguineous -Wound Margin Distinct, Outline Attached -Granulation Amt None Present (0 %) -Necrosis Amt Large (67-100%) -Necrotic Tissue Type Adherent Slough -Texture (Natacha-wound Skin Appearance) Localized Edema ,Scarring -Moisture (Natacha-wound Skin Appearance) Maceration -Color (Natacha-wound Skin Appearance) Erythema -Temperature (Natacha-wound Skin No Abnormality Appearance) (Pt Warm) -Tenderness on Palpation (Natacha-wound Yes Skin Appearance) -Ulcer Cleansing Wound Cleanser -Foul Odor after Cleansing No -Anesthetic Used 4% Lidocaine Solution #16 L Plantar med foot -Current Size (cm) - Length 2.1 -Current Size (cm) - Width 1.5 -Current Size (cm) - Depth 1.4 -Total Square Cm 3.15 -Photo Taken Yes -Undermining/Tunneling Starts (O'clock 12 ) -Undermining/Tunneling Ends (O'clock) 2 -Maximum Distance (cm) 0.7 -Exudate Amt Medium -Exudate Type Serosanguineous -Wound Margin Distinct, Outline Attached -Granulation Amt Large (67-100%) -Granulation Quality Pale,[place] -Necrosis Amt Small (1-33%) -Necrotic Tissue Type Adherent Slough -Structure Exposed N/A -Texture (Natacha-wound Skin Appearance) Fluctuance -Moisture (Natacha-wound Skin Appearance) No Abnormality, Maceration -Color (Natacha-wound Skin Appearance) Not Assessed -Temperature (Natacha-wound Skin No Abnormality Appearance) (Pt Warm) -Tenderness on Palpation (Natacha-wound No Skin Appearance) -Ulcer Cleansing Wound Cleanser -Foul Odor after Cleansing No -Anesthetic Used 4% Lidocaine Solution WC - Nurse 2 - General Ulcer CM Notes Start: 03/17/21 10:45 Freq: Status: Active Protocol: Activity Type Activity Date Activity User E-Sign Co-Sign Detail Recorded Client Recorded Date Recorded By Document 03/17/21 11:42 LISSY [id number] 03/17/21 11:52 JF Edit Result 03/17/21 11:42 JF (1) [id number] 03/17/21 12:02 JF Edit Result 03/17/21 11:42 JF (2) [id number] 03/17/21 12:04 JF (1) #19 R Plantar Cluster - Debridement - Subq, 1st 20sq cm No => Yes #16 L Plantar med foot - Bioengineered Tissue No => Yes - Type of Bioengineered Tissue => Epifix - Expiration Date => 12/08/25 - Product Lot Number => [id number] - Percent Used => 100 - Lot number of Saline Used => [id number] - Debridement - Subq, 1st 20sq cm Yes => No - Apply Skin Sub - 1st 25 sq cm - Feet => 1 - Epifix (per sq cm) => 4 (2) #19 R Plantar Cluster - Clinical Debridement Subcutaneous => Muscle / Fascia - Tissue Removed Epidermis, => Muscle Subcutaneous => - Debridement - Subq, 1st 20sq cm Yes => No - Debridement - Muscle / Fascia, 1st => Yes 20sq cm #18 R Lat - Debridement - Subq, 1st 20sq cm No => Yes 03/17/21 11:42 Wound Center Nurse 2 #19 R Plantar Cluster -Time 11:43 -Correct Patient Yes -Correct Side, Site, Position Yes -Correct Procedure Yes -Procedure Performed Yes -Type of Procedure Debridement -Clinical Debridement Muscle / Fascia -Tissue Removed Muscle -Post Debridement (cm) - Length 5 -Post Debridement (cm) - Width 2.3 -Post Debridement (cm) - Depth 2 -Total Square (Post) (cm) 11.5 -Area of Debridement (cm) - Length 5 -Area of Debridement (cm) - Width 2.3 -Total Square (Area) (cm) 11.5 -Tunneling No -Undermining/Tunneling No -Circular Undermining No -Wound/Ulcer Outcome Not Healed -Ulcer Cleansing Rinsed/ Irrigated with Saline -Foul Odor after Cleansing No -Bioengineered Tissue No -Bleeding Controlled with Pressure -Type of Offloading Total Contact Cast (TCC) - Left ($) -Treatment Response Procedure Tolerated Well -Debridement - Subq, 1st 20sq cm No -Debridement - Muscle / Fascia, 1st Yes 20sq cm #18 R Lat -Time 11:50 -Correct Patient Yes -Correct Side, Site, Position Yes -Correct Procedure Yes -Procedure Performed Yes -Type of Procedure Debridement -Clinical Debridement Subcutaneous -Tissue Removed Subcutaneous -Post Debridement (cm) - Length 0.9 -Post Debridement (cm) - Width 0.7 -Post Debridement (cm) - Depth 1.5 -Total Square (Post) (cm) 0.63 -Area of Debridement (cm) - Length 0.9 -Area of Debridement (cm) - Width 0.7 -Total Square (Area) (cm) 0.63 -Tunneling No -Undermining/Tunneling No -Circular Undermining No -Wound/Ulcer Outcome Healed- Surgical Closure -Ulcer Cleansing Not Cleansed -Bioengineered Tissue No -Bleeding Controlled with Pressure -Offloading No -Treatment Response Procedure Tolerated Well -Debridement - Subq, 1st 20sq cm Yes #16 L Plantar med foot -Time 11:49 -Correct Patient Yes -Correct Side, Site, Position Yes -Correct Procedure Yes -Procedure Performed Yes -Type of Procedure Debridement -Clinical Debridement Subcutaneous -Tissue Removed Subcutaneous -Post Debridement (cm) - Length 2.2 -Post Debridement (cm) - Width 1.7 -Post Debridement (cm) - Depth 1 -Total Square (Post) (cm) 3.74 -Area of Debridement (cm) - Length 2.2 -Area of Debridement (cm) - Width 1.7 -Total Square (Area) (cm) 3.74 -Tunneling No -Undermining/Tunneling No -Circular Undermining No -Wound/Ulcer Outcome Not Healed -Ulcer Cleansing Rinsed/ Irrigated with Saline -Foul Odor after Cleansing No -Bioengineered Tissue Yes -Type of Bioengineered Tissue Epifix -Expiration Date 12/08/25 -Product Lot Number [id number] -Percent Used 100 -Lot number of Saline Used [id number] -Bleeding Controlled with Pressure -Offloading No -Treatment Response Procedure Tolerated Well -Debridement - Subq, 1st 20sq cm No -Apply Skin Sub - 1st 25 sq cm - Feet 1 -Epifix (per sq cm) 4 Pain Scale: 0-10 Numeric Is Patient Pain Free? Yes - Nurse 3 - General Ulcer D/C NN Start: 03/17/21 10:45 Freq: Status: Active Protocol: Activity Type Activity Date Activity User E-Sign Co-Sign Detail Recorded Client Recorded Date Recorded By Document 03/17/21 12:25 [facility] [id number] 03/17/21 12:26 [facility] 03/17/21 12:25 Wound Care Nurse 3 #19 R Plantar Cluster -Ulcer Cleansing Rinsed/ Irrigated with Saline -Foul Odor after Cleansing No -Primary Dressing Applied Aquacel AG 2x2, Nugauze, Iodoform -Primary Dressing Covered/Secured with Dry Gauze & Roll Gauze, Secured with Tape,Other -Other Covering abd -Aquacel AG 2x2 2 -Nugauze, Iodoform 1/4 1 #18 R Lat -Ulcer Cleansing Rinsed/ Irrigated with Saline -Foul Odor after Cleansing No -Primary Dressing Applied Aquacel AG 2x2, Nugauze, Iodoform -Primary Dressing Covered/Secured with Dry Gauze & Roll Gauze, Secured with Tape,Other -Other Covering abd -Aquacel AG 2x2 0 -Nugauze, Iodoform 1/4 0 #16 L Plantar med foot -Other Dressing epifix -Primary Dressing Covered/Secured with Dry Gauze & Roll Gauze, Secured with Tape,Other -Other Covering abd Right -Compression Wrap [place] Wrap Left -Compression Wrap [place] Wrap Treatment Response Procedure Tolerated Well Pain Scale: 0-10 Numeric Is Patient Pain Free? Yes - Visit Discharge Discharge Condition Stable Ambulatory Status Wheelchair Facility Type Assisted Care Facility Wound debrided: Plantar foot Laterality: Right Wound Grade/Stage: Freedman 2 Type of Debridement: Excisional debridement Anesthesia Used: 4% Lidocaine Solution Depth: to muscle Percentage of wound debrided: 100 Instrument Used: 3mm curette, #15 blade and Forceps Tissue Removed: includes fibrous, devitalized, biofilm, callus and slough tissue Severity: Fat Layer Exposed Amount of bleeding with debridement: Mild Bleeding Controlled with: Pressure Patient tolerated procedure: Patient tolerated procedure well Additional Wound Wound debrided: Plantar foot Laterality: Left Wound Grade/Stage: Freed[place] 1 Type of Debridement: Excisional debridement Anesthesia Used: 4% Lidocaine Solution Depth: in the subcutaneous layer Percentage of wound debrided: 100 Instrument Used: 3mm curette Tissue Removed: Includes fibrous, devitalized, biofilm, callus and slough tissue Severity: Fat Layer Exposed Amount of bleeding with debridement: Mild Bleeding Controlled with: Pressure Patient tolerated procedure: Patient tolerated procedure well Additional Wound Wound debrided: lateral foot Laterality: Right Wound Grade/Stage: Freedman 1 Type of Debridement: Excisional debridement Anesthesia Used: 4% Lidocaine Solution Depth: in the subcutaneous layer Percentage of wound debrided: 100 Instrument Used: 3mm curette Tissue Removed: Includes fibrous, devitalized, biofilm, callus and slough tissue Severity: Fat Layer Exposed Amount of bleeding with debridement: Mild Bleeding Controlled with: Pressure Patient tolerated procedure: Patient tolerated procedure well Assessment/Plan Assessment/Plan (1) Non-pressure chronic ulcer of other part of left foot with fat layer exposed: CODE(S): L97.522 - Non-pressure chronic ulcer of other part of left foot with fat layer exposed (2) Chronic ulcer of right foot with necrosis of muscle: CODE(S): L97.513 - Non-pressure chronic ulcer of other part of right foot with necrosis of muscle (3) Cellulitis of right foot: CODE(S): L03.115 - Cellulitis of right lower limb (4) Charcot's joint of right foot: CODE(S): M14.671 - Charcot's joint, right ankle and foot (5) Charcot's joint of left foot: CODE(S): M14.672 - Charcot's joint, left ankle and foot (6) Type 2 diabetes mellitus with diabetic polyneuropathy: CODE(S): E11.42 - Type 2 diabetes mellitus with diabetic polyneuropathy QUALIFIERS: Diabetes mellitus [facility] insulin use: with ocean transportation intermediary use Qualified Code(s): E11.42 - Type 2 diabetes mellitus with diabetic polyneuropathy; Z79.4 - snf (current) use of insulin (7) Delayed wound healing: CODE(S): T14.8XXD - Other injury of unspecified body region, subsequent encounter (8) Non-pressure chronic 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 layer exposed: CODE(S): L97.512 - Non-pressure chronic 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 layer exposed PLAN: Patient seen and examined. Patient known to have recent hospital visit. Since being seen by myself in the hospital patient since had worsening of the right foot ulceration. The left foot ulceration is noted to have improved. The left plantar foot ulceration was approved for epi fix graft application ulceration was debrided after verbal consent was obtained by the patient. The right foot plantar wound was debrided down to level of muscle and the right foot lateral wound was debrided to the level of fascia. On the left foot ulceration was debrided down to level of fascia. I recommend application of advanced wound healing product to the left plantar foot ulceration. Prior authorization was confirmed. The indications, benefits, anticipated application and healing time management were reviewed in detail. Verbal consent was obtained in the procedure for today. Site was debrided and graft was applied according to standard protocol and was further secured with a wound veil and Steri-Strips. Patient was met to the hospital on 03/03/2021 for nausea and vomiting. Patient was noted to have gastroparesis. Patient was noted to also have worsening right foot during admission with acute Charcot event and multiple new wound developments. The left foot is noted to have been stable with showed signs of improvement during hospital visit. Patient had MRI and x-ray of the right foot obtained which were significant for acute Charcot changes as well as abscess to the plantar lateral foot. There is no signs of osteomyelitis noted. Cultures were obtained of bilateral foot's. Patient was seen by infectious disease. Patient was discharged on Levaquin per infectious disease. Patient was discharged to a SNF. Patient is to remain strict nonweightbearing to the right foot. Patient can transfer by putting weight through her toe or heel on the left foot. Patient is to continue right foot iodoform packing dressing changes to the tunneling areas as well as to cover with silver alginate dressing. This is to be changed daily. Outer dressing is only to be changed on the left foot with the wound graft left intact. It is noted she is already been undergoing a comprehensive wound healing plan and has delayed and nonhealing. She has had prior bone biopsies, wound culture, and intervention with infectious disease. She has suspected adequate vascular perfusion for healing per her recent noninvasive vascular studies 09/01/2020 with triphasic waveforms noted. Patient's hemoglobin A1c was 9.8 in August 2020. Offloading strongly recommended. Optimal blood sugar control and increased protein intake also discussed. All questions were answered and she was advised to call with any further questions or concerns. All signs and symptoms of local and systemic infection were discussed with the patient today. Follow up in 1 week. This note was generated with [employer] dictation software. It may contain incorrect words, spelling, and punctuation that were not noted in checking the note before signing.
[2021-03-24 11:09] VITALS: BP 125/66; PULSE 83; RESP 22; TEMP 36.6; BMI 31.3
--- NOTE | 2021-03-24 12:55 | PN.PCM_ITS ---
History of Present Illness Date of Service: 03/24/21 Chief Complaint: Right ankle diabetic ulcer- healed left foot ulcer History of Wound: Patient is a 55-year-old female who presents to the clinic for follow-up of hospital stay for a left foot chronic ulceration. Patient had MRI on 09/01/2020 showing 1. Large 5.81 x 1.70 cm open skin defect/wound on the lateral plantar aspect of the foot contains fluid and debris and can be a infected. The investing fascia and the plantar aspect of the foot beneath the fourth metatarsal bone encloses the complex fluid collection, and there is no demonstrated intramuscular extension or contact with the overlying bony structures. 2. Mild cortical irregularity is present at the base and plantar and lateral aspect of the fifth metatarsal bone and cuboid which could be related to prior infection or sequela from previous trauma. 3. No active bone marrow edema or cortical erosion is seen to suggest active osteomyelitis. Patient had an I&D performed in the hospital by Dr. Guadarrama on 09/08/2020. That time patient was noted to have infection to left foot wound with Staphylococcus and Enterobacter which was treated during her stay at the hospital and TCU. Patient has had this ulceration for quite some time. 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 Patient also was noted to have bilateral varus foot deformity. Patient has a noted history of poor compliance of medical recommendations. Patient presents to the office ambulating in TCC unassisted. Patient was noted to have course of antibiotics while in the hospital in August 2020. Since being discharged from the hospital August 2020 patient has missed several of her follow-up appointments including here at the wound care center as well as with her primary care physician. She states issues with transportation. Patient missed follow-up appointment with infectious disease on November 12, 2020. She states that she saw them 11/26/2020. She states he didn't do anything She was admitted to the hospital 11/14/20 for altered mental status. She was found to have had 2 mini strokes per patient. The TCC was removed at that time and patient was to resume wound vac. Culture was obtained in the hospital growing enterobacter cloacae, klebsiella oxytoca, corynebacterium striatum, and enterococcus faecalis. This wasn't treated while in the hospital. Dr Tello was contacted and he started her on linezolid and omnicef 12/02/20. She has since finished this. Patient also relates that she is largely non weight bearing by sitting in a chair or on the couch she also uses a wheelchair at home. She states she moved back in with her daughter. She does admit to walking around without the boot to protect the total contact cast. She has broken the TCC multiple times She does admit to external rotation of the lower extremities which could be a contributing factor to ulcer breakdown of the right lateral ankle. She also admits to having offloading boot that she does not wear at night as she states she kicks it off due to her restless leg syndrome. This has since healed- right lateral ankle She relates that she has a in [place] and visits him for months at a time when she has the funds. This has contributed to her noncompliance Patient expresses concern over losing her was acute Charcot but seems reluctant to follow treatment recommendations. She does not seem willing or capable to follow instructions. Patient was recently at the hospital for gastroenteritis. Patient also noted that time to have worsening right foot with acute Charcot foot noted on x-ray and MRI. Patient was also noted to have multiple new blisters formed during hospital stay with wounds that remain. It was determined during hospital visit the patient was not stable not to go to the operating room. Bedside debridements and cultures were obtained. Patient was started on Levaquin per infectious disease. Patient is to continue wound care and has since followed up with the wound care center. Right foot wound culture from 03/06/2021 with significant for bacterial growth of staph aureus and strep group C. Left foot wound did not appear clinically infected but was polymicrobial upon culture on 03/05/2021. MRI obtained of the right foot was negative for osteomyelitis but showed small focal abscess to lateral plantar foot. Progress of Wound: stable right foot wound improved left foot wound Subjective Subjective Patient seen and examined resting comfortably. Patient denies any new pedal complaints. Patient denies any nausea, fever, chills, chest pain, shortness of breath, cough, streaking, purulence, vomiting. Patient relates incident that got right foot wet while bathing and relates that the staff at the care home would not help redress it so she had to do it herself. Objective Data Objective Data Vital Signs: Vital Signs Temp Pulse Resp BP 97.8 F 83 22 H 125/66 H 03/24/21 11:09 03/24/21 11:09 03/24/21 11:09 03/24/21 11:09 Weight: 91.138 kg Body Mass Index (BMI) 31.3 Physical Exam Narrative Const alert General Appearance: cooperative Extremity normal capillary refill and no calf tenderness General Extremity: edema bilateral lower extremity, no tenderness to palpation of joints or extremities and other findings Other Details: Capillary refill time less than 3 seconds noted to digits ; Negative for clubbing or cyanosis Skin General Skin Exam: atrophy and dry skin; Negative for ecchymosis, erythema, eschar, pallor or dermatitis Rashes: no rashes Wounds: wounds noted Wound Narrative: plantar left foot ulceration appears improved. Granular base. No maceration noted. There is no erythema or edema or malodor or purulence or other suggestion signs of infection. Wound is to the level of muscle/fat. Serous drainage noted. Mild periwound callus noted Right foot plantar ulceration cluster is stable. There is noted to be less edema with sloughing off of the periwound skin noted decrease in swelling. The slough skin was removed. There is some remaining edema and erythema. No fluctuation. No purulent drainage expressed from wound. Fibrotic base with couple areas of tunneling noted. The tunneling is noted to be less compared to last week. This area has most amount of slough and fibrous tissue noted. Patient complains of burning pain. Serosanguineous drainage noted. This probes to the level of muscle. Right lateral foot wound is fibrotic and granular base 50-50 base with surrounding edema and erythema which is improved. Wound probes to fascia. Serosanguineous drainage noted. No purulence expressed. Does not probe to bone. No fluctuation or evidence of underlying abscess noted. No malodor noted. 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 Charcot foot deformity noted bilaterally. DP and PT are diminished bilaterally Neuromuscular Sensory Exam: extremities light-touch: decreased Motor Exam: strength abnormal other (4/5 to all pedal muscle groups) There is foot and Charcot deformities noted to bilateral feet with prominent plantar lateral feet collapse Psych Appearance: appropriate Debridement Note Debridement Note Post-Debridement Measurements and Additional Note: Post-Debridement Measurements/Treatment WC - Nurse 1 - General Ulcer Assessment Start: 03/17/21 10:45 Freq: Status: Active Protocol: LOWEXT Activity Type Activity Date Activity User E-Sign Co-Sign Detail Recorded Client Recorded Date Recorded By Document 03/17/21 10:45 DL [id number] 03/17/21 11:04 DL Document 03/24/21 11:09 DL [id number] 03/24/21 11:22 DL 03/17/21 03/24/21 10:45 11:09 - Today's Visit Information Type of service Follow-up Visit Follow-up Visit (Physician/AFRICAN HISTORY PROFESSOR (Physician/AFRICAN HISTORY PROFESSOR ) ) Arrival Mode Ambulatory Stretcher Transfer Assistance None Manual Transfer Assist (Other) x1 Patient Identification Verified (Name & Yes Yes ) Patient Requires Transmission-Based No No Precautions Finger Stick Blood Sugar(mg/dl) (if 269 260 indicated): Blood Sugar Stated by Stated by Patient Patient Height and Weight Body Mass Index (BMI) 31.3 31.3 BMI Classification Obese Obese Vital Signs Temperature (97.8 F-99.1 F) 97.8 F 97.8 F Temperature Source Temporal Temporal Pulse Rate (60-100) 89 83 Pulse Location Monitor Monitor Respiratory Rate (12-18) 18 22 H Respiratory rate source Observation Observation Blood Pressure (90/60-120/80) 131/64 H 125/66 H Blood Pressure Mean (mm Hg) 86 85 Source Monitor Monitor History Since Last Visit- (Skip if this is Patient's initial visit) Have you changed medications since your No No last visit? Any new allergies or adverse reactions No No Had a fall/change in ADL's that may No No increase risk of falls Signs or symptoms of abuse and/or No No neglect since last visit Have you been in the hospital since your No No last visit? Has dressing in place as prescribed Yes Yes Has compression in place as prescribed Yes N/A Has offloadiing in place as prescribed Yes Yes Experienced any changes in pain level or No No management Left Footwear No Footwear No Footwear Right Footwear No Footwear No Footwear Pain Scale: 0-10 Numeric Is Patient Pain Free? Yes Yes - Nurse 1 - General Ulcer Measurement Start: 03/17/21 10:45 Freq: Status: Active Protocol: Activity Type Activity Date Activity User E-Sign Co-Sign Detail Recorded Client Recorded Date Recorded By Document 03/17/21 10:45 DL [id number] 03/17/21 11:04 DL Document 03/24/21 11:09 DL [id number] 03/24/21 11:22 DL 03/17/21 03/24/21 10:45 11:09 Wound Center Nurse 1 #19 R Plantar Cluster -Current Size (cm) - Length 5.5 4 -Current Size (cm) - Width 3 5.8 -Current Size (cm) - Depth 0.4 1 -Total Square Cm 16.5 23.2 -Photo Taken Yes No -Exudate Amt Medium Medium -Exudate Type Serosanguineous Serosanguineous -Wound Margin Distinct, Indistinct, Non Outline -Visible Attached -Granulation Amt Medium (34-66%) None Present (0 %) -Granulation Quality Pale,[employer] -Necrosis Amt Medium (34-66%) Large (67-100%) -Necrotic Tissue Type Adherent Slough Adherent Slough -Structure Exposed None/Limited to N/A Skin Breakdown -Texture (Natacha-wound Skin Appearance) Localized Edema Localized Edema ,Scarring ,Scarring -Moisture (Natacha-wound Skin Appearance) Maceration Maceration -Color (Natacha-wound Skin Appearance) Erythema No Abnormality -Temperature (Natacha-wound Skin No Abnormality No Abnormality Appearance) (Pt Warm) (Pt Warm) -Tenderness on Palpation (Natacha-wound No No Skin Appearance) -Ulcer Cleansing Wound Cleanser Wound Cleanser -Foul Odor after Cleansing No No -Anesthetic Used 4% Lidocaine 4% Lidocaine Solution Solution #18 R Lat -Current Size (cm) - Length 0.8 0.5 -Current Size (cm) - Width 0.5 0.6 -Current Size (cm) - Depth 0.6 1 -Total Square Cm 0.40 0.30 -Photo Taken Yes No -Maximum Distance #2 (cm) 1 -Circular Undermining Yes -Exudate Amt Small Medium -Exudate Type Serosanguineous Serosanguineous -Wound Margin Distinct, Distinct, Outline Outline Attached Attached -Granulation Amt None Present (0 Large (67-100%) %) -Granulation Quality Pale -Necrosis Amt Large (67-100%) Small (1-33%) -Necrotic Tissue Type Adherent Slough -Structure Exposed N/A -Texture (Natacha-wound Skin Appearance) Localized Edema Localized Edema ,Scarring -Moisture (Natacha-wound Skin Appearance) Maceration Maceration -Color (Natacha-wound Skin Appearance) Erythema No Abnormality -Temperature (Natacha-wound Skin No Abnormality No Abnormality Appearance) (Pt Warm) (Pt Warm) -Tenderness on Palpation (Natacha-wound Yes No Skin Appearance) -Ulcer Cleansing Wound Cleanser Wound Cleanser -Foul Odor after Cleansing No Yes, Due to Product Use -Anesthetic Used 4% Lidocaine 4% Lidocaine Solution Solution #16 L Plantar med foot -Current Size (cm) - Length 2.1 2.7 -Current Size (cm) - Width 1.5 1.2 -Current Size (cm) - Depth 1.4 1 -Total Square Cm 3.15 3.24 -Photo Taken Yes No -Tunneling Position (O'clock) 1 -Tunneling Distance (cm) 1 -Undermining/Tunneling Starts (O'clock 12 ) -Undermining/Tunneling Ends (O'clock) 2 -Maximum Distance (cm) 0.7 -Exudate Amt Medium Large -Exudate Type Serosanguineous Serosanguineous -Wound Margin Distinct, Indistinct, Non Outline -Visible Attached -Granulation Amt Large (67-100%) Medium (34-66%) -Granulation Quality Pale,[employer] -Necrosis Amt Small (1-33%) Medium (34-66%) -Necrotic Tissue Type Adherent Slough Adherent Slough -Structure Exposed N/A N/A -Texture (Natacha-wound Skin Appearance) Fluctuance Localized Edema ,Scarring -Moisture (Natacha-wound Skin Appearance) No Abnormality, Maceration Maceration -Color (Natacha-wound Skin Appearance) Not Assessed Assessed -Temperature (Natacha-wound Skin No Abnormality No Abnormality Appearance) (Pt Warm) (Pt Warm) -Tenderness on Palpation (Natacha-wound No No Skin Appearance) -Ulcer Cleansing Wound Cleanser Wound Cleanser -Foul Odor after Cleansing No No -Anesthetic Used 4% Lidocaine 4% Lidocaine Solution Solution WC - Nurse 2 - General Ulcer CM Notes Start: 03/17/21 10:45 Freq: Status: Active Protocol: Activity Type Activity Date Activity User E-Sign Co-Sign Detail Recorded Client Recorded Date Recorded By Document 03/17/21 11:42 LISSY [id number] 03/17/21 11:52 LISSY Edit Result 03/17/21 11:42 JF (1) [id number] 03/17/21 12:02 JF Edit Result 03/17/21 11:42 JF (2) [id number] 03/17/21 12:04 JF Document 03/24/21 11:37 MW [id number] 03/24/21 11:54 MW (1) #19 R Plantar Cluster - Debridement - Subq, 1st 20sq cm No => Yes #16 L Plantar med foot - Bioengineered Tissue No => Yes - Type of Bioengineered Tissue => Epifix - Expiration Date => 12/08/25 - Product Lot Number => [id number] - Percent Used => 100 - Lot number of Saline Used => [id number] - Debridement - Subq, 1st 20sq cm Yes => No - Apply Skin Sub - 1st 25 sq cm - Feet => 1 - Epifix (per sq cm) => 4 (2) #19 R Plantar Cluster - Clinical Debridement Subcutaneous => Muscle / Fascia - Tissue Removed Epidermis, => Muscle Subcutaneous => - Debridement - Subq, 1st 20sq cm Yes => No - Debridement - Muscle / Fascia, 1st => Yes 20sq cm #18 R Lat - Debridement - Subq, 1st 20sq cm No => Yes 03/17/21 03/24/21 11:42 11:37 Wound Center Nurse 2 #19 R Plantar Cluster -Time 11:43 11:39 -Correct Patient Yes Yes -Correct Side, Site, Position Yes Yes -Correct Procedure Yes Yes -Procedure Performed Yes Yes -Type of Procedure Debridement Debridement -Clinical Debridement Muscle / Fascia Muscle / Fascia -Tissue Removed Muscle Muscle -Post Debridement (cm) - Length 5 4.6 -Post Debridement (cm) - Width 2.3 2.4 -Post Debridement (cm) - Depth 2 1.5 -Total Square (Post) (cm) 11.5 11.04 -Area of Debridement (cm) - Length 5 4.6 -Area of Debridement (cm) - Width 2.3 2.4 -Total Square (Area) (cm) 11.5 11.04 -Tunneling No No -Undermining/Tunneling No No -Circular Undermining No No -Wound/Ulcer Outcome Not Healed Not Healed -Ulcer Cleansing Rinsed/ Rinsed/ Irrigated with Irrigated with Saline Saline -Foul Odor after Cleansing No No -Bioengineered Tissue No No -Bleeding Controlled with Pressure Pressure -Offloading No -Type of Offloading Total Contact Cast (TCC) - Left ($) -Treatment Response Procedure Procedure Tolerated Well Tolerated Well -Debridement - Subq, 1st 20sq cm No -Debridement - Muscle / Fascia, 1st Yes Yes 20sq cm #18 R Lat -Time 11:50 11:39 -Correct Patient Yes Yes -Correct Side, Site, Position Yes Yes -Correct Procedure Yes Yes -Procedure Performed Yes Yes -Type of Procedure Debridement Debridement -Clinical Debridement Subcutaneous Subcutaneous -Tissue Removed Subcutaneous Subcutaneous -Post Debridement (cm) - Length 0.9 2.0 -Post Debridement (cm) - Width 0.7 1.4 -Post Debridement (cm) - Depth 1.5 0.8 -Total Square (Post) (cm) 0.63 2.80 -Area of Debridement (cm) - Length 0.9 2.0 -Area of Debridement (cm) - Width 0.7 1.4 -Total Square (Area) (cm) 0.63 2.80 -Tunneling No No -Undermining/Tunneling No No -Circular Undermining No No -Wound/Ulcer Outcome Healed- Not Healed Surgical Closure -Ulcer Cleansing Not Cleansed Rinsed/ Irrigated with Saline -Foul Odor after Cleansing No -Bioengineered Tissue No No -Bleeding Controlled with Pressure Pressure -Offloading No No -Treatment Response Procedure Procedure Tolerated Well Tolerated Well -Debridement - Subq, 1st 20sq cm Yes No #16 L Plantar med foot -Time 11:49 11:39 -Correct Patient Yes Yes -Correct Side, Site, Position Yes Yes -Correct Procedure Yes Yes -Procedure Performed Yes Yes -Type of Procedure Debridement Debridement -Clinical Debridement Subcutaneous Subcutaneous -Tissue Removed Subcutaneous Subcutaneous -Post Debridement (cm) - Length 2.2 2.0 -Post Debridement (cm) - Width 1.7 1.4 -Post Debridement (cm) - Depth 1 0.8 -Total Square (Post) (cm) 3.74 2.80 -Area of Debridement (cm) - Length 2.2 2.0 -Area of Debridement (cm) - Width 1.7 1.4 -Total Square (Area) (cm) 3.74 2.80 -Tunneling No No -Undermining/Tunneling No No -Circular Undermining No No -Wound/Ulcer Outcome Not Healed Not Healed -Ulcer Cleansing Rinsed/ Rinsed/ Irrigated with Irrigated with Saline Saline -Foul Odor after Cleansing No No -Bioengineered Tissue Yes Yes -Type of Bioengineered Tissue Epifix Epifix -Expiration Date 12/08/25 12/08/25 -Product Lot Number [id number] -Percent Used 100 100 -Lot number of Saline Used [id number] -Bleeding Controlled with Pressure Pressure -Offloading No No -Treatment Response Procedure Procedure Tolerated Well Tolerated Well -Debridement - Subq, 1st 20sq cm No No -Apply Skin Sub - 1st 25 sq cm - Feet 1 1 -Epifix (per sq cm) 4 4 Pain Scale: 0-10 Numeric Is Patient Pain Free? Yes Yes WC - Nurse 3 - General Ulcer D/C NN Start: 03/17/21 10:45 Freq: Status: Active Protocol: Activity Type Activity Date Activity User E-Sign Co-Sign Detail Recorded Client Recorded Date Recorded By Document 03/17/21 12:25 [facility] [id number] 03/17/21 12:26 [facility] Document 03/24/21 12:02 [facility] [id number] 03/24/21 12:04 BM 03/17/21 03/24/21 12:25 12:02 Wound Care Nurse 3 #19 R Plantar Cluster -Ulcer Cleansing Rinsed/ Rinsed/ Irrigated with Irrigated with Saline Saline -Foul Odor after Cleansing No No -Primary Dressing Applied Aquacel AG 2x2, Nugauze, Nugauze, Iodoform, Iodoform Silvercel -Primary Dressing Covered/Secured with Dry Gauze & Dry Gauze & Roll Gauze, Roll Gauze, Secured with Secured with Tape,Other Tape,Other -Other Covering abd reggie mayberryg per cy ordonez lpn -Aquacel AG 2x2 2 -Nugauze, Iodoform 1/4 1 1 -Silvercel 1 #18 R Lat -Ulcer Cleansing Rinsed/ Rinsed/ Irrigated with Irrigated with Saline Saline -Foul Odor after Cleansing No No -Primary Dressing Applied Aquacel AG 2x2, Nugauze, Nugauze, Iodoform, Iodoform Silvercel -Primary Dressing Covered/Secured with Dry Gauze & Dry Gauze & Roll Gauze, Roll Gauze, Secured with Secured with Tape,Other Tape,Other -Other Covering abd reggie mayberryg per d josé luis director business management -Aquacel AG 2x2 0 -Nugauze, Iodoform 1/4 0 0 -Silvercel 0 #16 L Plantar med foot -Other Dressing epifix epifix -Primary Dressing Covered/Secured with Dry Gauze & Dry Gauze & Roll Gauze, Roll Gauze, Secured with Secured with Tape,Other Tape,Other -Other Covering abd abd Right -Compression Wrap [place] Wrap Left -Compression Wrap [place] Wrap Treatment Response Procedure Procedure Tolerated Well Tolerated Well Pain Scale: 0-10 Numeric Is Patient Pain Free? Yes Yes WC - Visit Discharge Discharge Condition Stable Stable Ambulatory Status Wheelchair Wheelchair Transportation ecf Facility Type Harvesting Supervisor Care Harvesting Supervisor Care [facility] Facility Wound debrided: Plantar foot Laterality: Left Wound Grade/Stage: Freedman 1 Type of Debridement: Excisional debridement Anesthesia Used: 4% Lidocaine Solution Depth: in the subcutaneous layer Percentage of wound debrided: 100 Instrument Used: 3mm curette and #15 blade Tissue Removed: includes fibrous, devitalized, biofilm, callus and slough tissue Severity: Fat Layer Exposed Amount of bleeding with debridement: Mild Bleeding Controlled with: Pressure Patient tolerated procedure: Patient tolerated procedure well Additional Wound Wound debrided: Plantar foot Laterality: Right Wound Grade/Stage: Freedman 2 Type of Debridement: Excisional debridement Anesthesia Used: 4% Lidocaine Solution Depth: to muscle Percentage of wound debrided: 100 Instrument Used: 3mm curette, #15 blade and Forceps Tissue Removed: Includes fibrous, devitalized, biofilm, callus and slough tissue Severity: Necrosis of Muscle Amount of bleeding with debridement: Mild Bleeding Controlled with: Pressure Patient tolerated procedure: Patient tolerated procedure well Additional Wound Wound debrided: Lateral foot Laterality: Right Wound Grade/Stage: Freedman 1 Type of Debridement: Excisional debridement Depth: in the subcutaneous layer Percentage of wound debrided: 100 Instrument Used: 3mm curette Tissue Removed: Includes fibrous, devitalized, biofilm, callus and slough tissue Severity: Fat Layer Exposed Bleeding Controlled with: Pressure Patient tolerated procedure: Patient tolerated procedure well Assessment/Plan Assessment/Plan (1) Non-pressure chronic 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 layer exposed: CODE(S): L97.512 - Non-pressure chronic 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 layer exposed (2) Non-pressure chronic ulcer of other part of left foot with fat layer exposed: CODE(S): L97.522 - Non-pressure chronic ulcer of other part of left foot with fat layer exposed (3) Chronic ulcer of right foot with necrosis of muscle: CODE(S): L97.513 - Non-pressure chronic ulcer of other part of right foot with necrosis of muscle (4) Cellulitis of right foot: CODE(S): L03.115 - Cellulitis of right lower limb (5) Charcot's joint of right foot: CODE(S): M14.671 - Charcot's joint, right ankle and foot (6) Charcot's joint of left foot: CODE(S): M14.672 - Charcot's joint, left ankle and foot (7) Type 2 diabetes mellitus with diabetic polyneuropathy: CODE(S): E11.42 - Type 2 diabetes mellitus with diabetic polyneuropathy QUALIFIERS: Diabetes mellitus termite inspector insulin use: with group home use Qualified Code(s): E11.42 - Type 2 diabetes mellitus with diabetic polyneuropathy; Z79.4 - custodial (current) use of insulin (8) Delayed wound healing: CODE(S): T14.8XXD - Other injury of unspecified body region, subsequent encounter PLAN: Patient seen and examined. Patient is noted to currently be in assisted living facility. There is improvement noted to the left foot ulceration. The right foot ulcerations seems stable. Patient relates incident where her right foot got wet while bathing. She relates that the staff would not assist her in changing the bandage that she had to resolve. Patient relates tested it is not under orders to wash the wound. Orders will be recent to the facility with proper wound care instructions. The left plantar foot ulceration was approved for epi fix graft application ulcerations were debrided after verbal consent was obtained by the patient. The right foot plantar wound was debrided down to level of muscle and the right foot lateral wound was debrided to the level of fascia. On the left foot ulceration was debrided down to level of fascia. I recommend application of advanced wound healing product to the left plantar foot ulceration. Prior authorization was confirmed. The indications, benefits, anticipated application and healing time management were reviewed in detail. Verbal consent was obtained in the procedure for today. Site was debrided and graft was applied according to standard protocol and was further secured with a wound veil and Steri-Strips. Patient was met to the hospital on 03/03/2021 for nausea and vomiting. Patient was noted to have gastroparesis. Patient was noted to also have worsening right foot during admission with acute Charcot event and multiple new wound developments. The left foot is noted to have been stable with showed signs of improvement during hospital visit. Patient had MRI and x-ray of the right foot obtained which were significant for acute Charcot changes as well as abscess to the plantar lateral foot. There is no signs of osteomyelitis noted. Cultures w ere obtained of bilateral foot's. Patient was seen by infectious disease. Patient was discharged on Levaquin per infectious disease. Patient was discharged to a SNF. Patient is to remain strict nonweightbearing to the right foot. Patient can transfer by putting weight through her toe or heel on the left foot. Patient is to continue right foot iodoform packing dressing changes to the tunneling areas as well as to cover with silver alginate dressing. This is to be changed daily. Outer dressing is only to be changed on the left foot with the wound graft left intact. It is noted she is already been undergoing a comprehensive wound healing plan and has delayed and nonhealing. She has had prior bone biopsies, wound culture, and intervention with infectious disease. She has suspected adequate vascular perfusion for healing per her recent noninvasive vascular studies 09/01/2020 with triphasic waveforms noted. Patient's hemoglobin A1c was 9.8 in August 2020. Offloading strongly recommended. Optimal blood sugar control and increased protein intake also discussed. All questions were answered and she was advised to call with any further questions or concerns. All signs and symptoms of local and systemic infection were discussed with the patient today. Follow up in 1 week. This note was generated with [employer] dictation software. It may contain incorrect words, spelling, and punctuation that were not noted in checking the note before signing.
[2021-04-07 10:36] VITALS: BP 137/79; PULSE 83; RESP 16; TEMP 36.6; BMI 31.3
--- NOTE | 2021-04-07 12:47 | PCM.WC.PN ---
History of Present Illness Date of Service: 04/07/21 Chief Complaint: Right ankle diabetic ulcer- healed left foot ulcer History of Wound: Patient is a 55-year-old female who presents to the clinic for follow-up of hospital stay for a left foot chronic ulceration. Patient had MRI on 09/01/2020 showing 1. Large 5.81 x 1.70 cm open skin defect/wound on the lateral plantar aspect of the foot contains fluid and debris and can be a infected. The investing fascia and the plantar aspect of the foot beneath the fourth metatarsal bone encloses the complex fluid collection, and there is no demonstrated intramuscular extension or contact with the overlying bony structures. 2. Mild cortical irregularity is present at the base and plantar and lateral aspect of the fifth metatarsal bone and cuboid which could be related to prior infection or sequela from previous trauma. 3. No active bone marrow edema or cortical erosion is seen to suggest active osteomyelitis. Patient had an I&D performed in the hospital by Dr. Guadarrama on 09/08/2020. That time patient was noted to have infection to left foot wound with Staphylococcus and Enterobacter which was treated during her stay at the hospital and TCU. Patient has had this ulceration for quite some time. 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 Patient also was noted to have bilateral varus foot deformity. Patient has a noted history of poor compliance of medical recommendations. Patient presents to the office ambulating in TCC unassisted. Patient was noted to have course of antibiotics while in the hospital in August 2020. Since being discharged from the hospital August 2020 patient has missed several of her follow-up appointments including here at the wound care center as well as with her primary care physician. She states issues with transportation. Patient missed follow-up appointment with infectious disease on November 12, 2020. She states that she saw them 11/26/2020. She states he didn't do anything She was admitted to the hospital 11/14/20 for altered mental status. She was found to have had 2 mini strokes per patient. The TCC was removed at that time and patient was to resume wound vac. Culture was obtained in the hospital growing enterobacter cloacae, klebsiella oxytoca, corynebacterium striatum, and enterococcus faecalis. This wasn't treated while in the hospital. Dr Tello was contacted and he started her on linezolid and omnicef 12/02/20. She has since finished this. Patient also relates that she is largely non weight bearing by sitting in a chair or on the couch she also uses a wheelchair at home. She states she moved back in with her daughter. She does admit to walking around without the boot to protect the total contact cast. She has broken the TCC multiple times She does admit to external rotation of the lower extremities which could be a contributing factor to ulcer breakdown of the right lateral ankle. She also admits to having offloading boot that she does not wear at night as she states she kicks it off due to her restless leg syndrome. This has since healed- right lateral ankle She relates that she has a in [place] and visits him for months at a time when she has the funds. This has contributed to her noncompliance Patient expresses concern over losing her was acute Charcot but seems reluctant to follow treatment recommendations. She does not seem willing or capable to follow instructions. Patient was recently at the hospital for gastroenteritis. Patient also noted that time to have worsening right foot with acute Charcot foot noted on x-ray and MRI. Patient was also noted to have multiple new blisters formed during hospital stay with wounds that remain. It was determined during hospital visit the patient was not stable not to go to the operating room. Bedside debridements and cultures were obtained. Patient was started on Levaquin per infectious disease. Patient is to continue wound care and has since followed up with the wound care center. Right foot wound culture from 03/06/2021 with significant for bacterial growth of staph aureus and strep group C. Left foot wound did not appear clinically infected but was polymicrobial upon culture on 03/05/2021. MRI obtained of the right foot was negative for osteomyelitis but showed small focal abscess to lateral plantar foot. Progress of Wound: stable right foot wound. improved left foot wound Subjective Subjective Patient seen and examined resting comfortably. Patient denies any new pedal complaints. Patient denies any nausea, fever, chills, chest pain, shortness of breath, cough, streaking, purulence, vomiting. Objective Data Objective Data Vital Signs: Vital Signs Temp Pulse Resp BP 97.8 F 83 16 137/79 H 04/07/21 10:36 04/07/21 10:36 04/07/21 10:36 04/07/21 10:36 Oxygen Delivery Method Room Air Weight: 91.138 kg Body Mass Index (BMI) 31.3 Physical Exam Narrative Const alert General Appearance: cooperative Extremity normal capillary refill and no calf tenderness General Extremity: edema bilateral lower extremity, no tenderness to palpation of joints or extremities and other findings Other Details: Capillary refill time less than 3 seconds noted to digits ; Negative for clubbing or cyanosis Skin General Skin Exam: atrophy and dry skin; Negative for ecchymosis, erythema, eschar, pallor or dermatitis Rashes: no rashes Wounds: wounds noted Wound Narrative: plantar left foot ulceration appears improved. Granular base. No maceration noted. There is no erythema or edema or malodor or purulence or other suggestion signs of infection. Wound is to the level of muscle/fat. Serous drainage noted. Mild periwound callus noted Right foot plantar ulceration cluster is stable. There is noted to be less edema. There is some remaining edema and erythema improveds. No fluctuation. No purulent drainage expressed from wound. Fibrotic slough base with couple areas of tunneling noted. The tunneling is noted to be less compared to last week. This area has most amount of slough and fibrous tissue noted. Serosanguineous drainage noted. This probes to the level of sub q. There is new plantar wound just proximal to other plantar wound. This is rather superficial and without pus or communication with the other wound Right lateral foot wound is improved with largely granular base base with surrounding edema and erythema which is improved. Wound probes to fascia. Serosanguineous drainage noted. No purulence expressed. Does not probe to bone. No fluctuation or evidence of underlying abscess noted. No malodor noted. There is noted new purple/red area to dorsal foot x2. This doesn't appear infectious in nature. They measure 0.5x2.5cm at ankle and 3.5x3cm to dorsal foot. There is no open wound or break in the skin. There is no pain to palpation or fluctuance or crepitus. 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 Charcot foot deformity noted bilaterally. DP and PT are diminished bilaterally Neuromuscular Sensory Exam: extremities light-touch: decreased Motor Exam: strength abnormal other (4/5 to all pedal muscle groups) There is foot and Charcot deformities noted to bilateral feet with prominent plantar lateral feet collapse Psych Appearance: appropriate Debridement Note Debridement Note Post-Debridement Measurements and Additional Note: Post-Debridement Measurements/Treatment WC - Nurse 1 - General Ulcer Assessment Start: 03/17/21 10:45 Freq: Status: Active Protocol: SHANICE Activity Type Activity Date Activity User E-Sign Co-Sign Detail Recorded Client Recorded Date Recorded By Document 03/17/21 10:45 DL [id number] 03/17/21 11:04 DL Document 03/24/21 11:09 DL [id number] 03/24/21 11:22 DL Document 04/07/21 10:36 BMF [id number] 04/07/21 10:59 BMF 03/17/21 03/24/21 04/07/21 10:45 11:09 10:36 - Today's Visit Information Type of service Follow-up Visit Follow-up Visit Follow-up Visit (Physician/EXPANSION JOINT FINISHER (Physician/EXPANSION JOINT FINISHER (Physician/EXPANSION JOINT FINISHER ) ) ) Arrival Mode Ambulatory Stretcher Wheelchair Transfer Assistance None Manual None Transfer Assist (Other) x1 Patient Identification Verified (Name & Yes Yes Yes ) Patient Requires Transmission-Based No No No Precautions Finger Stick Blood Sugar(mg/dl) (if [phone] indicated): Blood Sugar Stated by Stated by Stated by Patient Patient Patient Height and Weight Body Mass Index (BMI) 31.3 31.3 31.3 BMI Classification Obese Obese Obese Vital Signs Temperature (97.8 F-99.1 F) 97.8 F 97.8 F 97.8 F Temperature Source Temporal Temporal Temporal Pulse Rate (60-100) 89 83 83 Pulse Location Monitor Monitor Monitor Respiratory Rate (12-18) 18 22 H 16 Respiratory rate source Observation Observation Observation Oxygen Delivery Method Room Air Blood Pressure (90/60-120/80) 131/64 H 125/66 H 137/79 H Blood Pressure Mean (mm Hg) 86 85 98 Source Monitor Monitor Monitor Position Sitting Blood Pressure Location Left Arm History Since Last Visit- (Skip if this is Patient's initial visit) Have you changed medications since your No No No last visit? Any new allergies or adverse reactions No No No Had a fall/change in ADL's that may No No No increase risk of falls Signs or symptoms of abuse and/or No No No neglect since last visit Have you been in the hospital since your No No No last visit? Has dressing in place as prescribed Yes Yes Yes Has compression in place as prescribed Yes N/A N/A Has offloadiing in place as prescribed Yes Yes Yes Experienced any changes in pain level or No No No management Left Footwear No Footwear No Footwear Other Footwear (Comment) Right Footwear No Footwear No Footwear Other Footwear (Comment) Other Footwear no skid socks Pain Scale: 0-10 Numeric Is Patient Pain Free? Yes Yes Yes WC - Nurse 1 - General Ulcer Measurement Start: 03/17/21 10:45 Freq: Status: Active Protocol: Activity Type Activity Date Activity User E-Sign Co-Sign Detail Recorded Client Recorded Date Recorded By Document 03/17/21 10:45 DL [id number] 03/17/21 11:04 DL Document 03/24/21 11:09 DL [id number] 03/24/21 11:22 DL Document 04/07/21 10:36 BMF [id number] 04/07/21 10:59 BMF 03/17/21 03/24/21 04/07/21 10:45 11:09 10:36 Wound Center Nurse 1 #19 R Plantar Cluster -Combined with other wound No -Current Size (cm) - Length 5.5 4 3.3 -Current Size (cm) - Width 3 5.8 1.5 -Current Size (cm) - Depth 0.4 1 1.3 -Total Square Cm 16.5 23.2 4.95 -Photo Taken Yes No No -Epithelialization None Present -Tunneling Yes -Tunneling Position (O'clock) 9 -Tunneling Distance (cm) 2.8 -Undermining/Tunneling No -Circular Undermining No -Exudate Amt Medium Medium Large -Exudate Type Serosanguineous Serosanguineous Serosanguineous -Wound Margin Distinct, Indistinct, Non Distinct, Outline -Visible Outline Attached Attached -Granulation Amt Medium (34-66%) None Present (0 %) -Granulation Quality Pale,Gaffney -Slough/Fibrin Yes -Necrosis Amt Medium (34-66%) Large (67-100%) Large (67-100%) -Necrotic Tissue Type Adherent Slough Adherent Slough Adherent Slough -Structure Exposed None/Limited to N/A Skin Breakdown -Texture (Natacha-wound Skin Appearance) Localized Edema Localized Edema Assessed, ,Scarring ,Scarring Scarring -Moisture (Natacha-wound Skin Appearance) Maceration Maceration Assessed,Dry/ Scaly -Color (Natacha-wound Skin Appearance) Erythema No Abnormality Assessed, Erythema -Temperature (Natacha-wound Skin No Abnormality No Abnormality No Abnormality Appearance) (Pt Warm) (Pt Warm) (Pt Warm) -Tenderness on Palpation (Natacha-wound No No No Skin Appearance) -Ulcer Cleansing Wound Cleanser Wound Cleanser soapy water -Foul Odor after Cleansing No No No -Anesthetic Used 4% Lidocaine 4% Lidocaine 4% Lidocaine Solution Solution Solution #18 R Lat -Combined with other wound No -Current Size (cm) - Length 0.8 0.5 0.6 -Current Size (cm) - Width 0.5 0.6 0.3 -Current Size (cm) - Depth 0.6 1 0.3 -Total Square Cm 0.40 0.30 0.18 -Photo Taken Yes No No -Epithelialization Small 1-33% -Tunneling No -Undermining/Tunneling No -Maximum Distance #2 (cm) 1 -Circular Undermining Yes No -Exudate Amt Small Medium Medium -Exudate Type Serosanguineous Serosanguineous Serosanguineous -Wound Margin Distinct, Distinct, Distinct, Outline Outline Outline Attached Attached Attached -Granulation Amt None Present (0 Large (67-100%) Large (67-100%) %) -Granulation Quality Pale Red -Slough/Fibrin No -Necrosis Amt Large (67-100%) Small (1-33%) None Present (0 %) -Necrotic Tissue Type Adherent Slough -Structure Exposed N/A -Texture (Natacha-wound Skin Appearance) Localized Edema Localized Edema Assessed, ,Scarring Scarring -Moisture (Natacha-wound Skin Appearance) Maceration Maceration Assessed,Dry/ Scaly -Color (Natacha-wound Skin Appearance) Erythema No Abnormality Assessed, Erythema -Temperature (Natacha-wound Skin No Abnormality No Abnormality No Abnormality Appearance) (Pt Warm) (Pt Warm) (Pt Warm) -Tenderness on Palpation (Natacha-wound Yes No Skin Appearance) -Ulcer Cleansing Wound Cleanser Wound Cleanser soapy water -Foul Odor after Cleansing No Yes, Due to No Product Use -Anesthetic Used 4% Lidocaine 4% Lidocaine 4% Lidocaine Solution Solution Solution #16 L Plantar foot -Combined with other wound No -Current Size (cm) - Length 2.1 2.7 2.3 -Current Size (cm) - Width 1.5 1.2 1.2 -Current Size (cm) - Depth 1.4 1 1.4 -Total Square Cm 3.15 3.24 2.76 -Photo Taken Yes No No -Epithelialization None Present -Tunneling No -Tunneling Position (O'clock) 1 -Tunneling Distance (cm) 1 -Undermining/Tunneling Yes -Undermining/Tunneling Starts (O'clock 12 8 ) -Undermining/Tunneling Ends (O'clock) 2 12 -Maximum Distance (cm) 0.7 0.4 -Exudate Amt Medium Large Medium -Exudate Type Serosanguineous Serosanguineous Serosanguineous -Wound Margin Distinct, Indistinct, Non Distinct, Outline -Visible Outline Attached Attached -Granulation Amt Large (67-100%) Medium (34-66%) Large (67-100%) -Granulation Quality Pale,Gaffney Gaffney Pale,Red -Slough/Fibrin Yes -Necrosis Amt Small (1-33%) Medium (34-66%) Small (1-33%) -Necrotic Tissue Type Adherent Slough Adherent Slough Adherent Slough -Structure Exposed N/A N/A -Texture (Natacha-wound Skin Appearance) Fluctuance Localized Edema Assessed, ,Scarring Scarring -Moisture (Natacha-wound Skin Appearance) No Abnormality, Maceration Assessed,Dry/ Maceration Scaly -Color (Natacha-wound Skin Appearance) Not Assessed Assessed Assessed -Temperature (Natacha-wound Skin No Abnormality No Abnormality No Abnormality Appearance) (Pt Warm) (Pt Warm) (Pt Warm) -Tenderness on Palpation (Natacha-wound No No No Skin Appearance) -Ulcer Cleansing Wound Cleanser Wound Cleanser soapy water -Foul Odor after Cleansing No No No -Anesthetic Used 4% Lidocaine 4% Lidocaine 4% Lidocaine Solution Solution Solution WC - Nurse 2 - General Ulcer CM Notes Start: 03/17/21 10:45 Freq: Status: Active Protocol: Activity Type Activity Date Activity User E-Sign Co-Sign Detail Recorded Client Recorded Date Recorded By Document 03/17/21 11:42 LISSY [id number] 03/17/21 11:52 LISSY Edit Result 03/17/21 11:42 JF (1) [id number] 03/17/21 12:02 JF Edit Result 03/17/21 11:42 LISSY (2) [id number] 03/17/21 12:04 JF Document 03/24/21 11:37 MW [id number] 03/24/21 11:54 MW Edit Result 03/24/21 11:37 MW (3) [id number] 03/25/21 07:09 PL Document 04/07/21 11:07 JF [id number] 04/07/21 11:22 JF (1) #19 R Plantar Cluster - Debridement - Subq, 1st 20sq cm No => Yes #16 L Plantar foot - Bioengineered Tissue No => Yes - Type of Bioengineered Tissue => Epifix - Expiration Date => 12/08/25 - Product Lot Number => [id number] - Percent Used => 100 - Lot number of Saline Used => [id number] - Debridement - Subq, 1st 20sq cm Yes => No - Apply Skin Sub - 1st 25 sq cm - Feet => 1 - Epifix (per sq cm) => 4 (2) #19 R Plantar Cluster - Clinical Debridement Subcutaneous => Muscle / Fascia - Tissue Removed Epidermis, => Muscle Subcutaneous => - Debridement - Subq, 1st 20sq cm Yes => No - Debridement - Muscle / Fascia, 1st => Yes 20sq cm #18 R Lat - Debridement - Subq, 1st 20sq cm No => Yes (3) #18 R Lat - Debridement - Subq, 1st 20sq cm No => Yes 03/17/21 03/24/21 04/07/21 11:42 11:37 11:07 Wound Center Nurse 2 20-right inferior plantar -Time 11:21 -Correct Patient Yes -Correct Side, Site, Position Yes -Correct Procedure Yes -Procedure Performed Yes -Type of Procedure Debridement -Clinical Debridement Subcutaneous -Tissue Removed Subcutaneous -Post Debridement (cm) - Length 0.4 -Post Debridement (cm) - Width 0.3 -Post Debridement (cm) - Depth 0.3 -Total Square (Post) (cm) 0.12 -Area of Debridement (cm) - Length 0.4 -Area of Debridement (cm) - Width 0.3 -Total Square (Area) (cm) 0.12 -Tunneling No -Undermining/Tunneling No -Circular Undermining No -Wound/Ulcer Outcome Not Healed -Ulcer Cleansing Rinsed/ Irrigated with Saline -Foul Odor after Cleansing No -Bioengineered Tissue No -Bleeding Controlled with Pressure -Offloading Yes -Type of Offloading Surgical Shoe -Treatment Response Procedure Tolerated Well -Debridement - Subq, 1st 20sq cm No #19 R Plantar Cluster -Time 11:43 11:39 11:08 -Correct Patient Yes Yes Yes -Correct Side, Site, Position Yes Yes Yes -Correct Procedure Yes Yes Yes -Procedure Performed Yes Yes Yes -Type of Procedure Debridement Debridement Debridement -Clinical Debridement Muscle / Fascia Muscle / Fascia Subcutaneous -Tissue Removed Muscle Muscle Subcutaneous -Post Debridement (cm) - Length 5 4.6 3.4 -Post Debridement (cm) - Width 2.3 2.4 1.5 -Post Debridement (cm) - Depth 2 1.5 1.3 -Total Square (Post) (cm) 11.5 11.04 5.10 -Area of Debridement (cm) - Length 5 4.6 3.4 -Area of Debridement (cm) - Width 2.3 2.4 1.5 -Total Square (Area) (cm) 11.5 11.04 5.10 -Tunneling No No Yes -Tunneling Position (O'clock) 9 -Tunneling Distance (cm) 2.8 -Undermining/Tunneling No No No -Circular Undermining No No No -Wound/Ulcer Outcome Not Healed Not Healed Not Healed -Ulcer Cleansing Rinsed/ Rinsed/ Rinsed/ Irrigated with Irrigated with Irrigated with Saline Saline Saline -Foul Odor after Cleansing No No No -Bioengineered Tissue No No No -Bleeding Controlled with Pressure Pressure Pressure -Offloading No Yes -Type of Offloading Total Contact Surgical Shoe Cast (TCC) - Left ($) -Treatment Response Procedure Procedure Procedure Tolerated Well Tolerated Well Tolerated Well -Debridement - Subq, 1st 20sq cm No Yes -Debridement - Muscle / Fascia, 1st Yes Yes 20sq cm #18 R Lat -Time 11:50 11:39 11:09 -Correct Patient Yes Yes Yes -Correct Side, Site, Position Yes Yes Yes -Correct Procedure Yes Yes Yes -Procedure Performed Yes Yes Yes -Type of Procedure Debridement Debridement Debridement -Clinical Debridement Subcutaneous Subcutaneous Subcutaneous -Tissue Removed Subcutaneous Subcutaneous Subcutaneous -Post Debridement (cm) - Length 0.9 2.0 0.6 -Post Debridement (cm) - Width 0.7 1.4 0.3 -Post Debridement (cm) - Depth 1.5 0.8 0.4 -Total Square (Post) (cm) 0.63 2.80 0.18 -Area of Debridement (cm) - Length 0.9 2.0 0.6 -Area of Debridement (cm) - Width 0.7 1.4 0.3 -Total Square (Area) (cm) 0.63 2.80 0.18 -Tunneling No No No -Undermining/Tunneling No No No -Circular Undermining No No No -Wound/Ulcer Outcome Healed- Not Healed Not Healed Surgical Closure -Ulcer Cleansing Not Cleansed Rinsed/ Rinsed/ Irrigated with Irrigated with Saline Saline -Foul Odor after Cleansing No No -Bioengineered Tissue No No No -Bleeding Controlled with Pressure Pressure Pressure -Offloading No No Yes -Type of Offloading Surgical Shoe -Treatment Response Procedure Procedure Procedure Tolerated Well Tolerated Well Tolerated Well -Debridement - Subq, 1st 20sq cm Yes Yes No #16 L Plantar foot -Time 11:49 11:39 11:10 -Correct Patient Yes Yes Yes -Correct Side, Site, Position Yes Yes Yes -Correct Procedure Yes Yes Yes -Procedure Performed Yes Yes Yes -Type of Procedure Debridement Debridement Debridement -Clinical Debridement Subcutaneous Subcutaneous Subcutaneous -Tissue Removed Subcutaneous Subcutaneous Subcutaneous -Post Debridement (cm) - Length 2.2 2.0 2 -Post Debridement (cm) - Width 1.7 1.4 1.1 -Post Debridement (cm) - Depth 1 0.8 0.4 -Total Square (Post) (cm) 3.74 2.80 2.2 -Area of Debridement (cm) - Length 2.2 2.0 2 -Area of Debridement (cm) - Width 1.7 1.4 1.1 -Total Square (Area) (cm) 3.74 2.80 2.2 -Tunneling No No No -Undermining/Tunneling No No No -Circular Undermining No No No -Wound/Ulcer Outcome Not Healed Not Healed Not Healed -Ulcer Cleansing Rinsed/ Rinsed/ Rinsed/ Irrigated with Irrigated with Irrigated with Saline Saline Saline -Foul Odor after Cleansing No No No -Bioengineered Tissue Yes Yes Yes -Type of Bioengineered Tissue Epifix Epifix Epifix -Expiration Date 12/08/25 12/08/25 12/08/25 -Product Lot Number [id number] -Percent Used 100 100 100 -Lot number of Saline Used [id number] -Bleeding Controlled with Pressure Pressure Pressure -Offloading No No Yes -Type of Offloading Surgical Shoe -Treatment Response Procedure Procedure Procedure Tolerated Well Tolerated Well Tolerated Well -Debridement - Subq, 1st 20sq cm No No No -Apply Skin Sub - 1st 25 sq cm - Feet 1 1 1 -Epifix (per sq cm) 4 4 4 Pain Scale: 0-10 Numeric Is Patient Pain Free? Yes Yes Yes WC - Nurse 3 - General Ulcer D/C NN Start: 03/17/21 10:45 Freq: Status: Active Protocol: Activity Type Activity Date Activity User E-Sign Co-Sign Detail Recorded Client Recorded Date Recorded By Document 03/17/21 12:25 [facility] [id number] 03/17/21 12:26 BMF Document 03/24/21 12:02 BMF [id number] 03/24/21 12:04 BMF Document 04/07/21 11:30 DL [id number] 04/07/21 11:35 DL 03/17/21 03/24/21 04/07/21 12:25 12:02 11:30 Wound Care Nurse 3 20-right inferior plantar -Ulcer Cleansing Wound Cleanser -Foul Odor after Cleansing No -Other Dressing Moist gauze today -Primary Dressing Covered/Secured with Dry Gauze & Roll Gauze #19 R Plantar Cluster -Ulcer Cleansing Rinsed/ Rinsed/ Wound Cleanser Irrigated with Irrigated with Saline Saline -Foul Odor after Cleansing No No No -Primary Dressing Applied Aquacel AG 2x2, Nugauze, Nugauze, Iodoform, Iodoform Silvercel -Other Dressing Moist gauze today -Primary Dressing Covered/Secured with Dry Gauze & Dry Gauze & Dry Gauze & Roll Gauze, Roll Gauze, Roll Gauze, Secured with Secured with Secured with Tape,Other Tape,Other Tape -Other Covering abd abd, drsg per cy ordonez lpn -Aquacel AG 2x2 2 -Nugauze, Iodoform 1/4 1 1 -Silvercel 1 #18 R Lat -Ulcer Cleansing Rinsed/ Rinsed/ Wound Cleanser Irrigated with Irrigated with Saline Saline -Foul Odor after Cleansing No No No -Primary Dressing Applied Aquacel AG 2x2, Nugauze, Nugauze, Iodoform, Iodoform Silvercel -Other Dressing moist gauze today -Primary Dressing Covered/Secured with Dry Gauze & Dry Gauze & Dry Gauze & Roll Gauze, Roll Gauze, Roll Gauze, Secured with Secured with Secured with Tape,Other Tape,Other Tape -Other Covering abd abd, drsg per d Padding to R josé luis housing manager dorsal foot -Aquacel AG 2x2 0 -Nugauze, Iodoform 1/4 0 0 -Silvercel 0 #16 L Plantar foot -Foul Odor after Cleansing No -Other Dressing epifix epifix Epifix -Primary Dressing Covered/Secured with Dry Gauze & Dry Gauze & Dry Gauze & Roll Gauze, Roll Gauze, Roll Gauze, Secured with Secured with Secured with Tape,Other Tape,Other Tape -Other Covering abd abd Right -Compression Wrap [place] Wrap Left -Compression Wrap [place] Wrap Treatment Response Procedure Procedure Procedure Tolerated Well Tolerated Well Tolerated Well Pain Scale: 0-10 Numeric Is Patient Pain Free? Yes Yes Yes WC - Visit Discharge Discharge Condition Stable Stable Stable Ambulatory Status Wheelchair Wheelchair Wheelchair Transportation [facility] Notes: Pt to resume [facility] at [facility] to R Foot ulcers. Facility Type Collection Support Specialist Care [facility] Facility Wound debrided: plantar lateral foot Laterality: Left Wound Grade/Stage: warren 1 Type of Debridement: Excisional debridement Anesthesia Used: 4% Lidocaine Solution Depth: in the subcutaneous layer Percentage of wound debrided: 100 Instrument Used: 3mm curette Tissue Removed: includes fibrous, devitalized, biofilm, callus and slough tissue Severity: Fat Layer Exposed Amount of bleeding with debridement: Mild Bleeding Controlled with: Pressure Patient tolerated procedure: Patient tolerated procedure well Additional Wound Wound debrided: lateral foot, plantar inferior, plantar foot Laterality: Left Wound Grade/Stage: warren 1 Type of Debridement: Excisional debridement Anesthesia Used: 4% Lidocaine Solution Depth: in the subcutaneous layer Percentage of wound debrided: 100 Instrument Used: 3mm curette, #15 blade and Forceps Tissue Removed: Includes fibrous, devitalized, biofilm, callus and slough tissue Severity: Fat Layer Exposed Amount of bleeding with debridement: Mild Bleeding Controlled with: Pressure Patient tolerated procedure: Patient tolerated procedure well Assessment/Plan Assessment/Plan (1) Non-pressure chronic 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 layer exposed: CODE(S): L97.512 - Non-pressure chronic 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 layer exposed (2) Non-pressure chronic ulcer of other part of left foot with fat layer exposed: CODE(S): L97.522 - Non-pressure chronic ulcer of other part of left foot with fat layer exposed (3) Chronic ulcer of right foot with necrosis of muscle: CODE(S): L97.513 - Non-pressure chronic ulcer of other part of right foot with necrosis of muscle (4) Cellulitis of right foot: CODE(S): L03.115 - Cellulitis of right lower limb (5) Charcot's joint of right foot: CODE(S): M14.671 - Charcot's joint, right ankle and foot (6) Charcot's joint of left foot: CODE(S): M14.672 - Charcot's joint, left ankle and foot (7) Type 2 diabetes mellitus with diabetic polyneuropathy: CODE(S): E11.42 - Type 2 diabetes mellitus with diabetic polyneuropathy QUALIFIERS: 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 Patient is noted to have new wound to plantar foot right. She also relates an episode of bleeding from her right foot. She denies any trauma to it. She showed picture of blood saturating the dressing and getting on her bed. She relates it took over an hour for staff to come help her with a dressing change. Patient is noted to currently be in assisted living facility. There is improvement noted to the left foot ulceration. The right foot ulcerations seems stable. Discussed standing up for herself as she reports the nurses at her facility are not washing her foot during dressing changes. The left plantar foot ulceration was approved for epi fix graft application ulcerations were debrided after verbal consent was obtained by the patient. The right foot plantar wound was debrided down to level of fat and the right foot lateral wound was debrided to the level of fascia. On the left foot ulceration was debrided down to level of fascia. I recommend application of advanced wound healing product to the left plantar foot ulceration. Prior authorization was confirmed. The indications, benefits, anticipated application and healing time management were reviewed in detail. Verbal consent was obtained in the procedure for today. Site was debrided and graft was applied according to standard protocol and was further secured with a wound veil and Steri-Strips. Patient was met to the hospital on 03/03/2021 for nausea and vomiting. Patient was noted to have gastroparesis. Patient was noted to also have worsening right foot during admission with acute Charcot event and multiple new wound developments. The left foot is noted to have been stable with showed signs of improvement during hospital visit. Patient had MRI and x-ray of the right foot obtained which were significant for acute Charcot changes as well as abscess to the plantar lateral foot. There is no signs of osteomyelitis noted. Cultures were obtained of bilateral foot's. Patient was seen by infectious disease. Patient was discharged on Levaquin per infectious disease. Patient was discharged to a SNF. Patient is to remain strict nonweightbearing to the right foot. Patient can transfer by putting weight through her toe or heel on the left foot. Patient is to continue right foot dakins wet to dry dressing changes with insertion of gauze into tunneling area on lateral foot with good padding to dorsal foot/ankle. This is to be changed daily. Outer dressing is only to be changed on the left foot with the wound graft left intact. It is noted she is already been undergoing a comprehensive wound healing plan and has delayed and nonhealing. She has had prior bone biopsies, wound culture, and intervention with infectious disease. She has suspected adequate vascular perfusion for healing per her recent noninvasive vascular studies 09/01/2020 with triphasic waveforms noted. Patient's hemoglobin A1c was 9.8 in August 2020. Offloading strongly recommended. Optimal blood sugar control and increased protein intake also discussed. Being forced to stay off her feet at the SNF has allowed the most improvement noted in these wounds in a long time. All questions were answered and she was advised to call with any further questions or concerns. All signs and symptoms of local and systemic infection were discussed with the patient today. Follow up in 1 week. This note was generated with [employer] software. It may contain incorrect words, spelling, and punctuation that were not noted in checking the note before signing.
== END 2021-04-08 23:59 ==
LOC: WC 10:00
PROVIDERS: PCP Family Medicine; Referring Provider Podiatrist; Visit Provider Podiatrist Foot & Ankle Surgery
DX: E11.621 Type 2 diabetes mellitus with foot ulcer (principal); L97.422 Non-pressure chronic ulcer of left heel and midfoot with fat layer exposed; L97.413 Non-pressure chronic ulcer of right heel and midfoot with necrosis of muscle; L97.512 Non-pressure chronic 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 layer exposed; E11.610 Type 2 diabetes mellitus with diabetic neuropathic arthropathy; E11.42 Type 2 diabetes mellitus with diabetic polyneuropathy; L03.115 Cellulitis of right lower limb; G25.81 Restless legs syndrome; K52.9 Noninfective gastroenteritis and colitis, unspecified; E66.9 Obesity, unspecified; Z68.31 Body mass index [BMI] 31.0-31.9, adult; Z91.19 Patient's noncompliance with other medical treatment and regimen; Z79.4 Long term (current) use of insulin; Z79.82 Long term (current) use of aspirin; Z79.890 Hormone replacement therapy
CPT/HCPCS: 11042; 11043; 15275; 29445; Q4186

== ENCOUNTER → 2021-04-20 08:42 | Outpatient (CLI) | payer MEDICARE, MEDICAID, SELFPAY ==
[2018-09-21 13:23] VITALS: BMI 29.3
[2021-04-14 11:15] VITALS: BMI 31.3
--- NOTE | 2021-04-20 08:56 | RAD_ITS ---
STUDY: X-RAY - RIGHT FOOT CLINICAL: Female, 55 years old. Charcot changes. TECHNIQUE: 4 view(s) of the foot. COMPARISON: 03/04/2021. FINDINGS: Stable generalized osteopenia. Stable resection of the distal aspect of the fifth toe. Arthrosis of the tibiotalar joint unchanged. Marked Charcot changes of the midfoot and tarsometatarsal joints with subluxation of the second metatarsal laterally in relation to the second cuneiform, unchanged. Moderate arthrosis of the remaining in the PIP and IP joints of the first through fourth digits. Generalized soft tissue swelling. RAD/Foot min 3 Views IMPRESSION: Osteopenia with stable Charcot changes. Generalized soft tissue swelling. No or bone erosion. Electronically Signed: Dave Dumont MD at 9:17 EDT , Service support ,
== END ==
PROVIDERS: PCP Family Medicine; Referring Provider Podiatrist Foot & Ankle Surgery; Visit Provider Podiatrist Foot & Ankle Surgery
DX: M14.671 Charcot's joint, right ankle and foot (principal)
CPT/HCPCS: 73630

== ENCOUNTER 2021-05-03 10:57 | Emergency (ER) | payer MEDICARE, MEDICAID, SELFPAY ==
[2018-09-21 13:23] VITALS: BMI 29.3
[2021-04-29 08:57] VITALS: BMI 31.3
[2021-05-03 10:58] VITALS: BP 149/77; PULSE 79; RESP 20; TEMP 36.7; O2SAT 97; BMI 32.3
--- NOTE | 2021-05-03 11:39 | EX.ED.DYSGE1 ---
HPI History of Present Illness Chief Complaint: Other, Pain/Inj Informant: patient Narrative Narrative: Patient is a 55-year-old female who presents to the emergency department for left foot pain. She does have chronic foot ulcers that she follows with podiatry for. She she ran out of her pain medication the day prior and they were unable to refill this so she presents to the emergency department. She states that the pain is over the left lateral foot. No known trauma. She does have ulcers to the bottoms of her feet bilaterally. The right supposedly was packed. The left has Steri-Strips present. She does get frequent debridements. She sees podiatry every Tuesday. She has had MRIs of the foot which is never shown osteomyelitis. She has had previous amputations of the left small toe. She denies any systemic symptoms including any fever/chills. No pain going up the leg. No overlying skin changes. [facility] Medical History Acquired varus deformity of left foot Acquired varus deformity of right foot Anemia Anxiety Anxiety and depression Atherosclerosis of [place] coronary artery of [place] heart without angina pectoris Back pain, chronic Chronic renal insufficiency Chronic ulcer of left foot with fat layer exposed Coronary artery disease Delayed wound healing Depression Diabetes Diabetic foot ulcer associated with type 2 diabetes mellitus Diabetic infection of left foot Diabetic polyneuropathy Diabetic ulcer of right ankle Essential (primary) hypertension GERD (gastroesophageal reflux disease) Hemoglobin A1c greater than 9.0% HLD (hyperlipidemia) Hypertension Ischemic cardiomyopathy Myocardial infarct Non-compliance Non-smoker Normocytic anemia NSTEMI (non-ST elevated myocardial infarction) (09/20/18) Obesity (BMI 30.0-34.9) Osteomyelitis of left foot RLS (restless legs syndrome) TIA (transient ischemic attack) Type 2 diabetes mellitus with diabetic polyneuropathy Ulcer of left foot with muscle involvement without evidence of necrosis Ulcer of right lower extremity with fat layer exposed Home Medications atorvastatin 80 mg tablet 80 mg PO QHS #90 tablet 11/30/19 [Rx Last Taken 03/02/21 22:00] insulin lispro 20 unit SC TIDCM 08/31/20 [History Last Taken 11/14/20 09:00] paroxetine HCl 40 mg PO QHS 09/12/20 [History Last Taken 11/13/20 21:00] polysaccharide iron complex 150 mg PO DAILYCM 09/12/20 [History Last Taken 03/02/21 22:00] pramipexole 1.5 mg PO BID 09/12/20 [History Last Taken 03/02/21 22:00] aspirin 81 mg PO DAILY@0800 tab.chew 11/15/20 [Rx Last Taken 03/02/21 22:00] clopidogrel 75 mg PO DAILY #0 tablet 01/01/21 [Rx Last Taken 03/02/21 22:00] gabapentin 300 mg capsule 900 mg PO TID cap 01/20/21 [History Last Taken 03/02/21 22:00] insulin glargine 100 unit/mL (3 mL) subcutaneous pen 30 unit SC DAILY ml 01/20/21 [History Last Taken Unknown] nitroglycerin 0.4 mg sublingual tablet 0.4 mg SL Q5-15M PRN #25 tablet 01/20/21 [Rx Last Taken Unknown] isosorbide mononitrate 30 mg PO DAILY 03/03/21 [History Last Taken 03/02/21 22:00] acetaminophen [Tylenol] 650 mg PO Q6H PRN PRN #0 tab 03/13/21 [Rx Last Taken Unknown] [id number]-DeGWS-ldcnsr-ip-htf [Ted (with collagen)] 1 packet PO BIDCM #0 ea 03/13/21 [Rx Last Taken Unknown] levofloxacin 250 mg PO DAILY@0600 #0 tab 03/13/21 [Rx Last Taken Unknown] nut.tx.gluc intol,lf,soy-fiber [Glucerna 1.2 Howie] 120 ml PO 4X/DAY #0 ml 03/13/21 [Rx Last Taken Unknown] oxycodone 5 mg PO Q6H PRN PRN 3 Days #12 tab 03/13/21 [Rx Last Taken Unknown] peg 210-hjowkfrslugv-vuyyzvqj [Artificial Tears(hh-jcuc-fpoo)] 2 drp EACH EYE Q1H PRN #0 ml 03/13/21 [Rx Last Taken Unknown] gabapentin 300 mg PO BID #4 cap 05/03/21 [Rx Last Taken Unknown] oxycodone 5 mg PO TID PRN 1 Days #3 tab 05/03/21 [Rx Last Taken Unknown] Allergy/AdvReac Type Severity Reaction Status Date / Time oxycodone [From OxyContin] Allergy feels Verified 05/03/21 11:03 like I'm drowning Penicillins Allergy swelling Verified 05/03/21 11:03 in throat vancomycin Allergy Itching Verified 05/03/21 11:03 metronidazole AdvReac Nausea Verified 05/03/21 11:03 Family History Mother Diabetes CVA (cerebral vascular accident) Brother CAD (coronary artery disease) CABG X 3 Cancer testicular Diabetes Brother CAD (coronary artery disease) CABG X3 Diabetes Brother CAD (coronary artery disease) Stents Diabetes Sister CAD (coronary artery disease) CABG x 3 CVA (cerebral vascular accident) Diabetes Surgical History History of bilateral carpal tunnel release History of History of coronary artery stent placement (12/31/20) History of foot surgery History of rotator cuff surgery Social History Smoking Status: Never smoker alcohol intake: never substance use type: does not use caffeine: Yes Type: carbonated beverages Number of servings: 2 ROS ROS ED Constitutional Constitutional ED: Denies chills or fever(s) Eyes Eyes: Denies change in vision ENT ENT ED: Denies epistaxis or rhinorrhea Cardiovascular Cardiovascular: Denies chest pain Respiratory/Chest Respiratory/Chest: Denies cough, dyspnea or dyspnea on exertion Gastrointestinal Gastrointestinal: Denies abdominal pain, diarrhea, nausea or vomiting Musculoskeletal Musculoskeletal: Reports arthralgias; Denies back pain or neck pain Integumentary Denies rash Neurologic Neurologic: Denies dizziness, headache(s) or weakness EXAM Physical Exam Const Vital Signs: 05/03/21 10:58 05/03/21 13:18 Temperature 98.0 F Temperature Source Temporal Pulse Rate 79 81 Respiratory Rate 20 H 15 Blood Pressure 149/77 H 150/74 H Blood Pressure Mean 101 Pulse Ox 97 Oxygen Delivery Method Room Air Positive well nourished and well developed General Appearance ED: well developed and NAD HEENT Reports normocephalic, head/scalp atraumatic and moist mucous membranes Eyes PERRL and EOMs intact bilaterally Neck supple Chest Wall inspection of chest normal Resp normal respiratory effort and clear to auscultation bilaterally Auscultation: Negative for rales, rhonchi or wheezes Cardio regular rate, regular rhythm and no murmurs GI normal to inspection, nondistended, normoactive bowel sounds and non-tender Palpation: soft; Negative for guarding or rebound tenderness present Extremity Extremity Narrative: Right foot has open wound that appears to be healing well. No surrounding signs of infection or drainage present. I do not appreciate any packing material. Left foot has small wound present. Steri-Strips are intact. No surrounding overlying infection. No tenderness surrounding that area. Tenderness along the lateral foot. No obvious deformity. She has good range of motion. Neuro no sensory deficits noted Sensorium / Orientation: alert Motor Exam: strength 5/5 throughout Psych mental status grossly normal Skin no rashes or lesions noted MDM MDM MDM Narrative Medical decision making narrative: Patient presents the ED for left foot pain. She is on medications for this chronically but ran out. I did review her PDMP which does have gabapentin prescribed. We will give her a dose of this here in the emergency department and reassess. Otherwise she has a benign examination with no obvious infection present. She denies any trauma. Patient was given a prescription to last her until tomorrow whenever she can get her other medications refilled. We did discuss this with the on-call nurse was [facility] They are all agreeable with this plan. She is discharged home in stable condition. She is feeling better. All questions answered. 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 Lab Data Labs: Laboratory Results - last 24 hr 05/03/21 12:27 POC Glucose 38 L* Discharge Plan Triage Chief Complaint: Other, Pain/Inj ED Provider: Gopi Olson Dx/Rx/DC Orders Clinical Impression: Chronic foot pain Instructions: ED Pain Management: Chronic Prescriptions: New oxycodone 5 mg tablet 5 mg PO TID PRN (Reason: pain) 1 Days Qty: 3 RF: 0 gabapentin 300 mg capsule 300 mg PO BID Qty: 4 RF: 0 No Action atorvastatin 80 mg tablet 80 mg PO QHS Qty: 90 RF: 3 gabapentin 300 mg capsule 900 mg PO TID RF: 0 nitroglycerin 0.4 mg tablet, sublingual 0.4 mg SL Q5-15M PRN (Reason: chest pain) Qty: 25 RF: 3 insulin lispro 100 UNIT/ML insulin pen 20 unit SC TIDCM RF: 0 pramipexole 1 MG tablet 1.5 mg PO BID RF: 0 polysaccharide iron complex 150 MG capsule 150 mg PO DAILYCM RF: 0 paroxetine HCl 20 MG tablet 40 mg PO QHS RF: 0 insulin glargine 100 unit/mL (3 mL) insulin pen 30 unit SC DAILY RF: 0 aspirin 81 MG tablet,chewable 81 mg PO DAILY@0800 RF: 0 clopidogrel 75 MG tablet 75 mg PO DAILY Qty: 0 RF: 0 isosorbide mononitrate 30 mg tablet extended release 24 hr 30 mg PO DAILY RF: 0 acetaminophen [Tylenol] 325 mg Tablet 650 mg PO Q6H PRN PRN (Reason: Pain Score 1-10/Temp > 100.7 F) Qty: 0 RF: 0 levofloxacin 250 mg Tablet 250 mg PO DAILY@0600 Qty: 0 RF: 0 oxycodone 5 mg Tablet 5 mg PO Q6H PRN PRN (Reason: Pain Score 6-10) 3 Days Qty: 12 RF: 0 Artificial Tears(iv-nbid-qoqu) 1-0.2-0.2 % Drops 2 drp EACH EYE Q1H PRN (Reason: DRY EYES) Qty: 0 RF: 0 Glucerna 1.2 Howie 0.06-1.2 gram-kcal/mL Liquid 120 ml PO 4X/DAY Qty: 0 RF: 0 Ted (with collagen) 7-7-1.5 gram Powder In Packet 1 packet PO BIDCM Qty: 0 RF: 0 Primary Care Provider: Raúl Eric Referrals: Raúl Eric MD [Primary Care Provider] - 2 Days Disposition Disposition: Half-Way Facility Discharge Location: [facility] Discharge Date/Time: 05/03/21 13:29
[2021-05-03] MEDS: Gabapentin 300 MG Capsule PO (11:47)
[2021-05-03 12:36] LABS: Bedside Glucose 38 mg/dL (70-110)
[2021-05-03] MEDS: oxyCODONE 5 MG Tablet PO (12:55)
[2021-05-03 13:18] VITALS: BP 150/74; PULSE 81; RESP 15
== END 2021-05-03 13:29 | disposition skilled nursing facility (03) ==
PROVIDERS: Emergency Provider Emergency Medicine; PCP Family Medicine
DX: M79.672 Pain in left foot (principal); Z76.0 Encounter for issue of repeat prescription; G89.29 Other chronic pain; E11.621 Type 2 diabetes mellitus with foot ulcer; L97.525 Non-pressure chronic ulcer of other part of left foot with muscle involvement without evidence of necrosis; L97.512 Non-pressure chronic 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 layer exposed; I25.10 Atherosclerotic heart disease of native coronary artery without angina pectoris; Z91.19 Patient's noncompliance with other medical treatment and regimen; E11.22 Type 2 diabetes mellitus with diabetic chronic kidney disease; I12.9 Hypertensive chronic kidney disease with stage 1 through stage 4 chronic kidney disease, or unspecified chronic kidney disease; N18.9 Chronic kidney disease, unspecified; E11.42 Type 2 diabetes mellitus with diabetic polyneuropathy; I25.5 Ischemic cardiomyopathy; E78.5 Hyperlipidemia, unspecified; G25.81 Restless legs syndrome; F32.9 Major depressive disorder, single episode, unspecified; F41.9 Anxiety disorder, unspecified; K21.9 Gastro-esophageal reflux disease without esophagitis; Z79.4 Long term (current) use of insulin; Z79.02 Long term (current) use of antithrombotics/antiplatelets; Z79.82 Long term (current) use of aspirin; Z79.890 Hormone replacement therapy; Z79.899 Other long term (current) drug therapy; I25.2 Old myocardial infarction; Z86.73 Personal history of transient ischemic attack (TIA), and cerebral infarction without residual deficits; Z95.5 Presence of coronary angioplasty implant and graft; E66.9 Obesity, unspecified
CPT/HCPCS: 82962; 99285

== ENCOUNTER 2021-05-05 09:45 | Outpatient (RCR) | payer MEDICARE, MEDICAID, SELFPAY ==
[2018-09-21 13:23] VITALS: BMI 29.3
[2021-04-09 00:14] VITALS: BP 137/79; PULSE 83; RESP 16; TEMP 36.6
[2021-04-14 11:15] VITALS: BP 140/45; PULSE 81; RESP 16; TEMP 36.3; BMI 31.3
--- NOTE | 2021-04-14 12:41 | PN.PCM_ITS ---
History of Present Illness Date of Service: 04/14/21 Chief Complaint: Right ankle diabetic ulcer- healed left foot ulcer History of Wound: Patient is a 55-year-old female who presents to the clinic for follow-up of hospital stay for a left foot chronic ulceration. Patient had MRI on 09/01/2020 showing 1. Large 5.81 x 1.70 cm open skin defect/wound on the lateral plantar aspect of the foot contains fluid and debris and can be a infected. The investing fascia and the plantar aspect of the foot beneath the fourth metatarsal bone encloses the complex fluid collection, and there is no demonstrated intramuscular extension or contact with the overlying bony structures. 2. Mild cortical irregularity is present at the base and plantar and lateral aspect of the fifth metatarsal bone and cuboid which could be related to prior infection or sequela from previous trauma. 3. No active bone marrow edema or cortical erosion is seen to suggest active osteomyelitis. Patient had an I&D performed in the hospital by Dr. Guadarrama on 09/08/2020. That time patient was noted to have infection to left foot wound with Staphylococcus and Enterobacter which was treated during her stay at the hospital and TCU. Patient has had this ulceration for quite some time. 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 Patient also was noted to have bilateral varus foot deformity. Patient has a noted history of poor compliance of medical recommendations. Patient presents to the office ambulating in TCC unassisted. Patient was noted to have course of antibiotics while in the hospital in August 2020. Since being discharged from the hospital August 2020 patient has missed several of her follow-up appointments including here at the wound care center as well as with her primary care physician. She states issues with transportation. Patient missed follow-up appointment with infectious disease on November 12, 2020. She states that she saw them 11/26/2020. She states he didn't do anything She was admitted to the hospital 11/14/20 for altered mental status. She was found to have had 2 mini strokes per patient. The TCC was removed at that time and patient was to resume wound vac. Culture was obtained in the hospital growing enterobacter cloacae, klebsiella oxytoca, corynebacterium striatum, and enterococcus faecalis. This wasn't treated while in the hospital. Dr Tello was contacted and he started her on linezolid and omnicef 12/02/20. She has since finished this. Patient also relates that she is largely non weight bearing by sitting in a chair or on the couch she also uses a wheelchair at home. She states she moved back in with her daughter. She does admit to walking around without the boot to protect the total contact cast. She has broken the TCC multiple times She does admit to external rotation of the lower extremities which could be a contributing factor to ulcer breakdown of the right lateral ankle. She also admits to having offloading boot that she does not wear at night as she states she kicks it off due to her restless leg syndrome. This has since healed- right lateral ankle She relates that she has a in [place] and visits him for months at a time when she has the funds. This has contributed to her noncompliance Patient expresses concern over losing her was acute Charcot but seems reluctant to follow treatment recommendations. She does not seem willing or capable to follow instructions. Patient was recently at the hospital for gastroenteritis. Patient also noted that time to have worsening right foot with acute Charcot foot noted on x-ray and MRI. Patient was also noted to have multiple new blisters formed during hospital stay with wounds that remain. It was determined during hospital visit the patient was not stable not to go to the operating room. Bedside debridements and cultures were obtained. Patient was started on Levaquin per infectious disease. Patient is to continue wound care and has since followed up with the wound care center. Right foot wound culture from 03/06/2021 with significant for bacterial growth of staph aureus and strep group C. Left foot wound did not appear clinically infected but was polymicrobial upon culture on 03/05/2021. MRI obtained of the right foot was negative for osteomyelitis but showed small focal abscess to lateral plantar foot. Progress of Wound: Overall improvement noted Subjective Subjective Patient seen and examined resting comfortably. Patient denies any new pedal complaints. Patient denies any nausea, fever, chills, chest pain, shortness of breath, cough, streaking, purulence, vomiting. Objective Data Objective Data Vital Signs: Vital Signs Temp Pulse Resp BP 97.3 F L 81 16 140/45 H 04/14/21 11:15 04/14/21 11:15 04/14/21 11:15 04/14/21 11:15 Weight: 91.138 kg Body Mass Index (BMI) 31.3 Physical Exam Narrative Const alert General Appearance: cooperative Extremity normal capillary refill and no calf tenderness General Extremity: edema bilateral lower extremity, no tenderness to palpation of joints or extremities and other findings Other Details: Capillary refill time less than 3 seconds noted to digits ; Negative for clubbing or cyanosis Skin General Skin Exam: atrophy and dry skin; Negative for ecchymosis, erythema, eschar, pallor or dermatitis Rashes: no rashes Wounds: wounds noted Wound Narrative: plantar left foot ulceration appears improved. Granular base. No maceration noted. There is no erythema or edema or malodor or purulence or other suggestion signs of infection. Wound is to the level of muscle/fat. Serous drainage noted. Mild periwound callus noted Right foot plantar ulceration cluster is stable. There is noted to be less edema. There is some remaining edema and erythema improved. No fluctuation. No purulent drainage expressed from wound. Fibrotic slough base with couple areas of tunneling noted. There is less slough noted today. The tunneling is noted to be less compared to last week. This area has most amount of slough and fibrous tissue noted. Serosanguineous drainage noted. This probes to the level of sub q. There is plantar wound just proximal to other plantar wound. This is rather superficial and without pus or communication with the other wound Right lateral foot wound is improved with largely granular base base with surrounding edema and erythema which is improved. Wound probes to fascia. Serosanguineous drainage noted. No purulence expressed. Does not probe to bone. No fluctuation or evidence of underlying abscess noted. No malodor no cassy. There is noted new purple/red area to dorsal foot x2. This doesn't appear infectious in nature. These are noted to be less irritated looking this week with some skin flaking. There is no open wound or break in the skin. There is no pain to palpation or fluctuance or crepitus. 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 Charcot foot deformity noted bilaterally. DP and PT are diminished bilaterally Neuromuscular Sensory Exam: extremities light-touch: decreased Motor Exam: strength abnormal other (4/5 to all pedal muscle groups) There is foot and Charcot deformities noted to bilateral feet with prominent plantar lateral feet collapse Psych Appearance: appropriate Debridement Note Debridement Note Post-Debridement Measurements and Additional Note: Post-Debridement Measurements/Treatment WC - Nurse 1 - General Ulcer Assessment Start: 04/14/21 11:15 Freq: Status: Active Protocol: SHANICE Activity Type Activity Date Activity User E-Sign Co-Sign Detail Recorded Client Recorded Date Recorded By Document 04/14/21 11:15 ML [id number] 04/14/21 11:23 ML 04/14/21 11:15 WC - Today's Visit Information Type of service Follow-up Visit (Physician/CORPORATE GIVING MANAGER ) Arrival Mode Wheelchair Transfer Assistance None Patient Identification Verified (Name & Yes ) Patient Requires Transmission-Based No Precautions Safety Precautions NA Finger Stick Blood Sugar(mg/dl) (if 110 indicated): Blood Sugar Stated by Patient Height and Weight Body Mass Index (BMI) 31.3 BMI Classification Obese Vital Signs Temperature (97.8 F-99.1 F) 97.3 F L Temperature Source Temporal Pulse Rate (60-100) 81 Pulse Location Monitor Respiratory Rate (12-18) 16 Respiratory rate source Observation Blood Pressure (90/60-120/80) 140/45 H Blood Pressure Mean (mm Hg) 76 Source Monitor History Since Last Visit- (Skip if this is Patient's initial visit) Have you changed medications since your No last visit? Any new allergies or adverse reactions No Had a fall/change in ADL's that may No increase risk of falls Signs or symptoms of abuse and/or No neglect since last visit Have you been in the hospital since your No last visit? Has dressing in place as prescribed Yes Has compression in place as prescribed N/A Has offloadiing in place as prescribed N/A Experienced any changes in pain level or No management Left Footwear No Footwear Right Footwear No Footwear Pain Scale: 0-10 Numeric Is Patient Pain Free? Yes - Nurse 1 - General Ulcer Measurement Start: 04/14/21 11:15 Freq: Status: Active Protocol: Activity Type Activity Date Activity User E-Sign Co-Sign Detail Recorded Client Recorded Date Recorded By Document 04/14/21 11:15 ML [id number] 04/14/21 11:23 ML 04/14/21 11:15 Wound Center Nurse 1 20-right inferior plantar -Current Size (cm) - Length 3.4 -Current Size (cm) - Width 2.5 -Current Size (cm) - Depth 0.3 -Total Square Cm 8.50 -Epithelialization Medium 34-66% -Undermining/Tunneling Yes -Undermining/Tunneling Starts (O'clock 5 ) -Undermining/Tunneling Ends (O'clock) 9 -Maximum Distance (cm) 3 -Exudate Amt Medium -Exudate Type Serosanguineous -Wound Margin Distinct, Outline Attached -Granulation Amt Medium (34-66%) -Granulation Quality Pale -Slough/Fibrin Yes -Necrosis Amt Medium (34-66%) -Necrotic Tissue Type Adherent Slough -Moisture (Natacha-wound Skin Appearance) No Abnormality -Color (Natacha-wound Skin Appearance) No Abnormality, Assessed -Temperature (Natacha-wound Skin No Abnormality Appearance) (Pt Warm) -Tenderness on Palpation (Natacha-wound No Skin Appearance) -Ulcer Cleansing Wound Cleanser -Foul Odor after Cleansing No -Anesthetic Used 4% Lidocaine Solution #19 R Plantar Cluster -Current Size (cm) - Length 3.8 -Current Size (cm) - Width 3 -Current Size (cm) - Depth 0.1 -Total Square Cm 11.4 -Exudate Amt Small -Exudate Type Serosanguineous -Wound Margin Distinct, Outline Attached -Granulation Amt Large (67-100%) -Granulation Quality [place] -Slough/Fibrin No -Necrosis Amt None Present (0 %) -Texture (Natacha-wound Skin Appearance) No Abnormality -Moisture (Natacha-wound Skin Appearance) No Abnormality -Color (Natacha-wound Skin Appearance) No Abnormality -Temperature (Natacha-wound Skin No Abnormality Appearance) (Pt Warm) -Tenderness on Palpation (Natacha-wound No Skin Appearance) -Ulcer Cleansing Rinsed/ Irrigated with Saline -Foul Odor after Cleansing No -Anesthetic Used 4% Lidocaine Solution #18 R Lat -Current Size (cm) - Length 2 -Current Size (cm) - Width 2.5 -Current Size (cm) - Depth 0.8 -Total Square Cm 5.0 -Exudate Amt Medium -Exudate Type Serosanguineous -Wound Margin Distinct, Outline Attached -Granulation Amt Medium (34-66%) -Slough/Fibrin Yes -Necrosis Amt Medium (34-66%) -Necrotic Tissue Type Adherent Slough -Texture (Natacha-wound Skin Appearance) Assessed -Moisture (Natacha-wound Skin Appearance) Assessed -Color (Natacha-wound Skin Appearance) Assessed -Temperature (Natacha-wound Skin No Abnormality Appearance) (Pt Warm) -Tenderness on Palpation (Natacha-wound No Skin Appearance) -Ulcer Cleansing Wound Cleanser -Foul Odor after Cleansing No -Anesthetic Used 4% Lidocaine Solution #16 L Plantar foot -Current Size (cm) - Length 0.1 -Current Size (cm) - Width 0.1 -Current Size (cm) - Depth 0.1 -Total Square Cm 0.01 -Exudate Amt None Present -Wound Margin Distinct, Outline Attached -Granulation Amt Large (67-100%) -Slough/Fibrin No -Necrosis Amt None Present (0 %) -Texture (Natacha-wound Skin Appearance) Assessed -Moisture (Natacha-wound Skin Appearance) Assessed -Color (Natacha-wound Skin Appearance) Assessed -Temperature (Natacha-wound Skin No Abnormality Appearance) (Pt Warm) -Tenderness on Palpation (Natacha-wound No Skin Appearance) WC - Nurse 2 - General Ulcer CM Notes Start: 04/14/21 11:15 Freq: Status: Active Protocol: Activity Type Activity Date Activity User E-Sign Co-Sign Detail Recorded Client Recorded Date Recorded By Document 04/14/21 11:29 LISSY [id number] 04/14/21 11:42 LISSY 04/14/21 11:29 Wound Center Nurse 2 20-right inferior plantar -Time 11:32 -Correct Patient Yes -Correct Side, Site, Position Yes -Correct Procedure Yes -Procedure Performed Yes -Type of Procedure Debridement -Clinical Debridement Subcutaneous -Tissue Removed Subcutaneous -Post Debridement (cm) - Length 0.3 -Post Debridement (cm) - Width 0.2 -Post Debridement (cm) - Depth 0.2 -Total Square (Post) (cm) 0.06 -Area of Debridement (cm) - Length 0.3 -Area of Debridement (cm) - Width 0.2 -Total Square (Area) (cm) 0.06 -Tunneling No -Undermining/Tunneling No -Circular Undermining No -Wound/Ulcer Outcome Not Healed -Ulcer Cleansing Rinsed/ Irrigated with Saline -Foul Odor after Cleansing No -Bioengineered Tissue No -Bleeding Controlled with Pressure -Offloading No -Type of Offloading Knee Walker -Treatment Response Procedure Tolerated Well -Debridement - Subq, 1st 20sq cm Yes #19 R Plantar Cluster -Time 11:39 -Correct Patient Yes -Correct Side, Site, Position Yes -Correct Procedure Yes -Procedure Performed No -Type of Procedure Debridement -Clinical Debridement Subcutaneous -Tissue Removed Subcutaneous -Post Debridement (cm) - Length 3.3 -Post Debridement (cm) - Width 1.8 -Post Debridement (cm) - Depth 1.5 -Total Square (Post) (cm) 5.94 -Area of Debridement (cm) - Length 3.3 -Area of Debridement (cm) - Width 1.8 -Total Square (Area) (cm) 5.94 -Undermining/Tunneling No -Circular Undermining No -Wound/Ulcer Outcome Not Healed -Ulcer Cleansing Rinsed/ Irrigated with Saline -Foul Odor after Cleansing No -Bioengineered Tissue No -Bleeding Controlled with Pressure -Offloading No -Treatment Response Procedure Tolerated Well -Debridement - Subq, 1st 20sq cm No #18 R Lat -Time 11:40 -Correct Patient Yes -Correct Side, Site, Position Yes -Correct Procedure Yes -Procedure Performed Yes -Type of Procedure Debridement -Clinical Debridement Subcutaneous -Tissue Removed Subcutaneous -Post Debridement (cm) - Length 0.1 -Post Debridement (cm) - Width 0.1 -Post Debridement (cm) - Depth 0.1 -Total Square (Post) (cm) 0.01 -Area of Debridement (cm) - Length 0.1 -Area of Debridement (cm) - Width 0.1 -Total Square (Area) (cm) 0.01 -Tunneling No -Undermining/Tunneling No -Circular Undermining No -Wound/Ulcer Outcome Not Healed -Ulcer Cleansing Rinsed/ Irrigated with Saline -Foul Odor after Cleansing No -Bioengineered Tissue No -Offloading No -Treatment Response Procedure Tolerated Well -Debridement - Subq, 1st 20sq cm No #16 L Plantar foot -Time 11:41 -Correct Patient Yes -Correct Side, Site, Position Yes -Correct Procedure Yes -Procedure Performed Yes -Type of Procedure Debridement -Clinical Debridement Subcutaneous -Tissue Removed Subcutaneous -Post Debridement (cm) - Length 2.1 -Post Debridement (cm) - Width 1 -Post Debridement (cm) - Depth 0.5 -Total Square (Post) (cm) 2.1 -Area of Debridement (cm) - Length 2.1 -Area of Debridement (cm) - Width 1 -Total Square (Area) (cm) 2.1 -Tunneling No -Undermining/Tunneling No -Circular Undermining No -Wound/Ulcer Outcome Not Healed -Ulcer Cleansing Rinsed/ Irrigated with Saline -Foul Odor after Cleansing No -Bioengineered Tissue Yes -Type of Bioengineered Tissue Epifix -Expiration Date 12/08/25 -Product Lot Number [id number] -Percent Used 100 -Lot number of Saline Used [id number] -Bleeding Controlled with Pressure -Offloading Yes -Type of Offloading Surgical Shoe -Treatment Response Procedure Tolerated Well -Debridement - Subq, 1st 20sq cm No -Apply Skin Sub - 1st 25 sq cm - Feet 1 -Epifix (per sq cm) 4 Pain Scale: 0-10 Numeric Is Patient Pain Free? Yes WC - Nurse 3 - General Ulcer D/C NN Start: 04/14/21 11:15 Freq: Status: Active Protocol: Activity Type Activity Date Activity User E-Sign Co-Sign Detail Recorded Client Recorded Date Recorded By Document 04/14/21 11:51 [facility] [id number] 04/14/21 11:54 [facility] 04/14/21 11:51 Wound Care Nurse 3 20-right inferior plantar -Ulcer Cleansing Rinsed/ Irrigated with Saline -Foul Odor after Cleansing No -Primary Dressing Applied Other -Other Dressing moist to dry per mw rn -Primary Dressing Covered/Secured with Dry Gauze & Roll Gauze, Secured with Tape -Other Covering abd #19 R Plantar Cluster -Ulcer Cleansing Rinsed/ Irrigated with Saline -Foul Odor after Cleansing No -Primary Dressing Applied Other -Other Dressing moist to dry per mw rn -Primary Dressing Covered/Secured with Dry Gauze & Roll Gauze, Secured with Tape,Other -Other Covering abd #18 R Lat -Ulcer Cleansing Rinsed/ Irrigated with Saline -Foul Odor after Cleansing No -Primary Dressing Applied Other -Other Dressing moist to dry per mw rn -Primary Dressing Covered/Secured with Dry Gauze & Roll Gauze, Secured with Tape,Other -Other Covering abd #16 L Plantar foot -Other Dressing epifix -Primary Dressing Covered/Secured with Dry Gauze & Roll Gauze, Secured with Tape,Other -Other Covering abd, drsg per mw rn Right -Other [place] to secure drsg Left -Compression Wrap [place] Wrap -Other [place] to secure drsg Treatment Response Procedure Tolerated Well Pain Scale: 0-10 Numeric Is Patient Pain Free? Yes WC - Visit Discharge Discharge Condition Stable Ambulatory Status Wheelchair Facility Type Show Operations Supervisor Care Facility Wound debrided: Plantar foot Laterality: Left Wound Grade/Stage: [place] 2 Type of Debridement: Excisional debridement Anesthesia Used: 4% Lidocaine Solution Depth: in the subcutaneous layer Percentage of wound debrided: 100 Instrument Used: 3mm curette Tissue Removed: includes fibrous, devitalized, biofilm, callus and slough tissue Severity: Fat Layer Exposed Amount of bleeding with debridement: Mild Bleeding Controlled with: Pressure Patient tolerated procedure: Patient tolerated procedure well Additional Wound Wound debrided: Plantar cluster, lateral foot, Wound Grade/Stage: [place] 2 Type of Debridement: Excisional debridement Anesthesia Used: 4% Lidocaine Solution Depth: in the subcutaneous layer Percentage of wound debrided: 100 Instrument Used: 3mm curette Tissue Removed: Includes fibrous, devitalized, biofilm, callus and slough tissue Severity: Fat Layer Exposed Amount of bleeding with debridement: Mild Bleeding Controlled with: Pressure Patient tolerated procedure: Patient tolerated procedure well Assessment/Plan Assessment/Plan (1) Chronic ulcer of right foot with necrosis of muscle: CODE(S): L97.513 - Non-pressure chronic ulcer of other part of right foot with necrosis of muscle (2) Non-pressure chronic 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 layer exposed: CODE(S): L97.512 - Non-pressure chronic 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 layer exposed (3) Weakness: CODE(S): R53.1 - Weakness (4) Charcot's joint of right foot: CODE(S): M14.671 - Charcot's joint, right ankle and foot (5) Charcot's joint of left foot: CODE(S): M14.672 - Charcot's joint, left ankle and foot (6) Type 2 diabetes mellitus with diabetic polyneuropathy: CODE(S): E11.42 - Type 2 diabetes mellitus with diabetic polyneuropathy QUALIFIERS: Diabetes mellitus longterm insulin use: with longterm use Qualified Code(s): E11.42 - Type 2 diabetes mellitus with diabetic polyneuropathy; Z79.4 - assisted (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 Overall marginal improvement noted to wounds. Patient is noted to currently be in assisted living facility. There is improvement noted to the left foot ulceration. The right foot ulcerations seems stable. Discussed standing up for herself as she reports the nurses at her facility are not washing her foot during dressing changes. The left plantar foot ulceration was approved for epi fix graft application ulcerations were debrided after verbal consent was obtained by the patient. The right foot plantar wound was debrided down to level of fat and the right foot lateral wound was debrided to the level of fascia. On the left foot ulceration was debrided down to level of fascia. I recommend application of advanced wound healing product to the left plantar foot ulceration. Prior authorization was confirmed. The indications, benefits, anticipated application and healing time management were reviewed in detail. Verbal consent was obtained in the procedure for today. Site was debrided and graft was applied according to standard protocol and was further secured with a wound veil and Steri-Strips. Patient was met to the hospital on 03/03/2021 for nausea and vomiting. Patient was noted to have gastroparesis. Patient was noted to also have worsening right foot during admission with acute Charcot event and multiple new wound developments. The left foot is noted to have been stable with showed signs of improvement during hospital visit. Patient had MRI and x-ray of the right foot obtained which were significant for acute Charcot changes as well as abscess to the plantar lateral foot. There is no signs of osteomyelitis noted. Cultures were obtained of bilateral foot's. Patient was seen by infectious disease. Patient was discharged on Levaquin per infectious disease. Patient was discharged to a SNF. Patient is to remain strict nonweightbearing to the right foot. Patient can transfer by putting weight through her toe or heel on the left foot. Patient is to continue right foot dakins wet to dry dressing changes with insertion of gauze into tunneling area on lateral foot with good padding to dorsal foot/ankle. This is to be changed daily. Outer dressing is only to be changed on the left foot with the wound graft left intact. It is noted she is already been undergoing a comprehensive wound healing plan and has delayed and nonhealing. She has had prior bone biopsies, wound culture, and intervention with infectious disease. She has suspected adequate vascular perfusion for healing per her recent noninvasive vascular studies 09/01/2020 with triphasic waveforms noted. Patient's hemoglobin A1c was 9.8 in August 2020. Offloading strongly recommended. Optimal blood sugar control and increased protein intake also discussed. Being forced to stay off her feet at the SNF has allowed the most improvement noted in these wounds in a long time. Prescription for x-ray to right foot was given to patient to assess Charcot changes. All questions were answered and she was advised to call with any further questions or concerns. All signs and symptoms of local and systemic infection were discussed with the patient today. Follow up in 1 week. This note was generated with [employer] dictation software. It may contain incorrect words, spelling, and punctuation that were not noted in checking the note before signing.
[2021-04-21 09:01] VITALS: BP 141/69; PULSE 82; RESP 16; TEMP 36.1; BMI 31.3
--- NOTE | 2021-04-21 09:41 | PN.PCM_ITS ---
History of Present Illness Date of Service: 04/21/21 Chief Complaint: Right ankle diabetic ulcer- healed left foot ulcer History of Wound: Patient is a 55-year-old female who presents to the clinic for follow-up of hospital stay for a left foot chronic ulceration. Patient had MRI on 09/01/2020 showing 1. Large 5.81 x 1.70 cm open skin defect/wound on the lateral plantar aspect of the foot contains fluid and debris and can be a infected. The investing fascia and the plantar aspect of the foot beneath the fourth metatarsal bone encloses the complex fluid collection, and there is no demonstrated intramuscular extension or contact with the overlying bony structures. 2. Mild cortical irregularity is present at the base and plantar and lateral aspect of the fifth metatarsal bone and cuboid which could be related to prior infection or sequela from previous trauma. 3. No active bone marrow edema or cortical erosion is seen to suggest active osteomyelitis. Patient had an I&D performed in the hospital by Dr. Guadarrama on 09/08/2020. That time patient was noted to have infection to left foot wound with Staphylococcus and Enterobacter which was treated during her stay at the hospital and TCU. Patient has had this ulceration for quite some time. 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 Patient also was noted to have bilateral varus foot deformity. Patient has a noted history of poor compliance of medical recommendations. Patient presents to the office ambulating in TCC unassisted. Patient was noted to have course of antibiotics while in the hospital in August 2020. Since being discharged from the hospital August 2020 patient has missed several of her follow-up appointments including here at the wound care center as well as with her primary care physician. She states issues with transportation. Patient missed follow-up appointment with infectious disease on November 12, 2020. She states that she saw them 11/26/2020. She states he didn't do anything She was admitted to the hospital 11/14/20 for altered mental status. She was found to have had 2 mini strokes per patient. The TCC was removed at that time and patient was to resume wound vac. Culture was obtained in the hospital growing enterobacter cloacae, klebsiella oxytoca, corynebacterium striatum, and enterococcus faecalis. This wasn't treated while in the hospital. Dr Tello was contacted and he started her on linezolid and omnicef 12/02/20. She has since finished this. Patient also relates that she is largely non weight bearing by sitting in a chair or on the couch she also uses a wheelchair at home. She states she moved back in with her daughter. She does admit to walking around without the boot to protect the total contact cast. She has broken the TCC multiple times She does admit to external rotation of the lower extremities which could be a contributing factor to ulcer breakdown of the right lateral ankle. She also admits to having offloading boot that she does not wear at night as she states she kicks it off due to her restless leg syndrome. This has since healed- right lateral ankle She relates that she has a in [place] and visits him for months at a time when she has the funds. This has contributed to her noncompliance Patient expresses concern over losing her was acute Charcot but seems reluctant to follow treatment recommendations. She does not seem willing or capable to follow instructions. Patient was recently at the hospital for gastroenteritis. Patient also noted that time to have worsening right foot with acute Charcot foot noted on x-ray and MRI. Patient was also noted to have multiple new blisters formed during hospital stay with wounds that remain. It was determined during hospital visit the patient was not stable not to go to the operating room. Bedside debridements and cultures were obtained. Patient was started on Levaquin per infectious disease. Patient is to continue wound care and has since followed up with the wound care center. Right foot wound culture from 03/06/2021 with significant for bacterial growth of staph aureus and strep group C. Left foot wound did not appear clinically infected but was polymicrobial upon culture on 03/05/2021. MRI obtained of the right foot was negative for osteomyelitis but showed small focal abscess to lateral plantar foot. Progress of Wound: Overall improvement noted with more granulation tissue noted Subjective Subjective Patient seen and examined resting comfortably. Patient denies any new pedal c omplaints. Patient denies any nausea, fever, chills, chest pain, shortness of breath, cough, streaking, purulence, vomiting. Patient relates that the nurses at the facility refused to change her dressing yesterday. She relates this is happened once other time this past week. Objective Data Objective Data Vital Signs: Vital Signs Temp Pulse Resp BP 97 F L 82 16 141/69 H 04/21/21 09:01 04/21/21 09:01 04/21/21 09:01 04/21/21 09:01 Oxygen Delivery Method Room Air Weight: 91.138 kg Body Mass Index (BMI) 31.3 Physical Exam Narrative Const alert General Appearance: cooperative, sleepy Extremity normal capillary refill and no calf tenderness General Extremity: edema bilateral lower extremity, no tenderness to palpation of joints or extremities and other findings Other Details: Capillary refill time less than 3 seconds noted to digits ; Negative for clubbing or cyanosis Skin General Skin Exam: atrophy and dry skin; Negative for ecchymosis, erythema, eschar, pallor or dermatitis Rashes: no rashes Wounds: wounds noted Wound Narrative: plantar left foot ulceration appears improved. Granular base. No maceration noted. Mild periwound callus tissue noted. There is no erythema or edema or malodor or purulence or other suggestion signs of infection. Wound is to the level of muscle/fat. Serous drainage noted. There is increase in granulation tissue noted. Noted to tunnel at 9:00 3 cm to the lateral foot wound communicated Right foot plantar ulceration cluster has healed Right lateral foot wound is improved with largely granular base base with surrounding edema and erythema which is improved. Wound probes to fascia. Serosanguineous drainage noted. No purulence expressed. Does not probe to bone. No fluctuation or evidence of underlying abscess noted. No malodor noted. Communicates with the plantar foot wound at 3:00 There is noted new purple/red area to dorsal foot x2. This doesn't appear infectious in nature. These are noted to be less irritated looking this week with some skin flaking. There is no open wound or break in the skin. There is no pain to palpation or fluctuance or crepitus. Continues to improve Amputations noted to bilateral fifth rays. Charcot foot deformity noted bilaterally. DP and PT are diminished bilaterally Neuromuscular Sensory Exam: extremities light-touch: decreased Motor Exam: strength abnormal other (4/5 to all pedal muscle groups) There is foot and Charcot deformities noted to bilateral feet with prominent plantar lateral feet collapse Psych Appearance: appropriate Debridement Note Debridement Note Post-Debridement Measurements and Additional Note: Post-Debridement Measurements/Treatment [place] - Nurse 1 - General Ulcer Assessment Start: 04/14/21 11:15 Freq: Status: Active Protocol: LOWEXT Activity Type Activity Date Activity User E-Sign Co-Sign Detail Recorded Client Recorded Date Recorded By Document 04/14/21 11:15 ML [id number] 04/14/21 11:23 ML Document 04/21/21 09:01 [facility] [id number] 04/21/21 09:09 [facility] 04/14/21 04/21/21 11:15 09:01 - Today's Visit Information Type of service Follow-up Visit Follow-up Visit (Physician/TAMPING MACHINE OPERATOR (Physician/TAMPING MACHINE OPERATOR ) ) Arrival Mode Wheelchair Wheelchair Transfer Assistance None Other Transfer Assist (Other) standby Patient Identification Verified (Name & Yes Yes ) Patient Requires Transmission-Based No No Precautions Safety Precautions NA Finger Stick Blood Sugar(mg/dl) (if 110 180 indicated): Blood Sugar Stated by Stated by Patient Patient Height and Weight Body Mass Index (BMI) 31.3 31.3 BMI Classification Obese Obese Vital Signs Temperature (97.8 F-99.1 F) 97.3 F L 97 F L Temperature Source Temporal Temporal Pulse Rate (60-100) 81 82 Pulse Location Monitor Monitor Respiratory Rate (12-18) 16 16 Respiratory rate source Observation Observation Oxygen Delivery Method Room Air Blood Pressure (90/60-120/80) 140/45 H 141/69 H Blood Pressure Mean (mm Hg) 76 93 Source Monitor Monitor Position Sitting Blood Pressure Location Left Arm History Since Last Visit- (Skip if this is Patient's initial visit) Have you changed medications since your No No last visit? Any new allergies or adverse reactions No No Had a fall/change in ADL's that may No No increase risk of falls Signs or symptoms of abuse and/or No No neglect since last visit Have you been in the hospital since your No No last visit? Has dressing in place as prescribed Yes Yes Has compression in place as prescribed N/A N/A Has offloadiing in place as prescribed N/A Yes Experienced any changes in pain level or No No management Left Footwear No Footwear Right Footwear No Footwear Pain Scale: 0-10 Numeric Is Patient Pain Free? Yes Yes - Nurse 1 - General Ulcer Measurement Start: 04/14/21 11:15 Freq: Status: Active Protocol: Activity Type Activity Date Activity User E-Sign Co-Sign Detail Recorded Client Recorded Date Recorded By Document 04/14/21 11:15 ML [id number] 04/14/21 11:23 ML Document 04/21/21 09:01 [facility] [id number] 04/21/21 09:09 BMF 04/14/21 04/21/21 11:15 09:01 Wound Center Nurse 1 20-right inferior plantar -Combined with other wound No -Current Size (cm) - Length 3.4 0.1 -Current Size (cm) - Width 2.5 0.1 -Current Size (cm) - Depth 0.3 0.1 -Total Square Cm 8.50 0.01 -Epithelialization Medium 34-66% Large 67-100% -Undermining/Tunneling Yes -Undermining/Tunneling Starts (O'clock 5 ) -Undermining/Tunneling Ends (O'clock) 9 -Maximum Distance (cm) 3 -Exudate Amt Medium -Exudate Type Serosanguineous -Wound Margin Distinct, Outline Attached -Granulation Amt Medium (34-66%) -Granulation Quality Pale -Slough/Fibrin Yes -Necrosis Amt Medium (34-66%) -Necrotic Tissue Type Adherent Slough -Texture (Natacha-wound Skin Appearance) Assessed, Scarring -Moisture (Natacha-wound Skin Appearance) No Abnormality Assessed,Dry/ Scaly -Color (Natacha-wound Skin Appearance) No Abnormality, Assessed Assessed -Temperature (Natacha-wound Skin No Abnormality No Abnormality Appearance) (Pt Warm) (Pt Warm) -Tenderness on Palpation (Natacha-wound No No Skin Appearance) -Ulcer Cleansing Wound Cleanser soapy water -Foul Odor after Cleansing No No -Anesthetic Used 4% Lidocaine 5% Lidocaine Solution Gel #19 R Plantar Cluster -Combined with other wound No -Current Size (cm) - Length 3.8 3.1 -Current Size (cm) - Width 3 2.2 -Current Size (cm) - Depth 0.1 1.1 -Total Square Cm 11.4 6.82 -Photo Taken No -Epithelialization None Present -Tunneling No -Undermining/Tunneling Yes -Undermining/Tunneling Starts (O'clock 4 ) -Undermining/Tunneling Ends (O'clock) 7 -Maximum Distance (cm) 1.9 -Circular Undermining No -Exudate Amt Small Large -Exudate Type Serosanguineous Serosanguineous -Wound Margin Distinct, Thickened & Outline Rolled Under Attached -Granulation Amt Large (67-100%) Medium (34-66%) -Granulation Quality Manter Manter -Slough/Fibrin No Yes -Necrosis Amt None Present (0 Medium (34-66%) %) -Necrotic Tissue Type Adherent Slough -Texture (Natacha-wound Skin Appearance) No Abnormality Assessed,Callus ,Scarring -Moisture (Natacha-wound Skin Appearance) No Abnormality Assessed, Maceration,Dry/ Scaly -Color (Natacha-wound Skin Appearance) No Abnormality Assessed,Palor -Temperature (Natacha-wound Skin No Abnormality No Abnormality Appearance) (Pt Warm) (Pt Warm) -Tenderness on Palpation (Natacha-wound No No Skin Appearance) -Ulcer Cleansing Rinsed/ soapy water Irrigated with Saline -Foul Odor after Cleansing No No -Anesthetic Used 4% Lidocaine 5% Lidocaine Solution Gel #18 R Lat -Combined with other wound No -Current Size (cm) - Length 2 0.1 -Current Size (cm) - Width 2.5 0.1 -Current Size (cm) - Depth 0.8 0.1 -Total Square Cm 5.0 0.01 -Epithelialization Large 67-100% -Exudate Amt Medium -Exudate Type Serosanguineous -Wound Margin Distinct, Outline Attached -Granulation Amt Medium (34-66%) -Slough/Fibrin Yes -Necrosis Amt Medium (34-66%) -Necrotic Tissue Type Adherent Slough -Texture (Natacha-wound Skin Appearance) Assessed Assessed, Scarring -Moisture (Natacha-wound Skin Appearance) Assessed Assessed,Dry/ Scaly -Color (Natacha-wound Skin Appearance) Assessed Assessed -Temperature (Natacha-wound Skin No Abnormality No Abnormality Appearance) (Pt Warm) (Pt Warm) -Tenderness on Palpation (Natacha-wound No No Skin Appearance) -Ulcer Cleansing Wound Cleanser soapy water -Foul Odor after Cleansing No No -Anesthetic Used 4% Lidocaine 5% Lidocaine Solution Gel #16 L Plantar foot -Combined with other wound No -Current Size (cm) - Length 0.1 1.5 -Current Size (cm) - Width 0.1 1 -Current Size (cm) - Depth 0.1 0.5 -Total Square Cm 0.01 1.5 -Photo Taken No -Epithelialization None Present -Tunneling No -Undermining/Tunneling No -Circular Undermining No -Exudate Amt None Present Large -Exudate Type Serosanguineous -Wound Margin Distinct, Thickened & Outline Rolled Under Attached -Granulation Amt Large (67-100%) Medium (34-66%) -Granulation Quality Manter -Slough/Fibrin No Yes -Necrosis Amt None Present (0 Medium (34-66%) %) -Necrotic Tissue Type Adherent Slough -Texture (Natacha-wound Skin Appearance) Assessed Assessed,Callus ,Scarring -Moisture (Natacha-wound Skin Appearance) Assessed Assessed -Color (Natacha-wound Skin Appearance) Assessed Assessed -Temperature (Natacha-wound Skin No Abnormality No Abnormality Appearance) (Pt Warm) (Pt Warm) -Tenderness on Palpation (Natacha-wound No No Skin Appearance) -Ulcer Cleansing soapy water -Foul Odor after Cleansing No -Anesthetic Used 5% Lidocaine Gel WC - Nurse 2 - General Ulcer CM Notes Start: 04/14/21 11:15 Freq: Status: Active Protocol: Activity Type Activity Date Activity User E-Sign Co-Sign Detail Recorded Client Recorded Date Recorded By Document 04/14/21 11:29 [id number] 04/14/21 11:42 Document 04/21/21 09:19 [id number] 04/21/21 09:36 04/14/21 04/21/21 11:29 09:19 Wound Center Nurse 2 20-right inferior plantar -Time 11:32 09:33 -Correct Patient Yes Yes -Correct Side, Site, Position Yes Yes -Correct Procedure Yes Yes -Procedure Performed Yes No -Type of Procedure Debridement -Clinical Debridement Subcutaneous -Tissue Removed Subcutaneous -Post Debridement (cm) - Length 0.3 0 -Post Debridement (cm) - Width 0.2 0 -Post Debridement (cm) - Depth 0.2 0 -Total Square (Post) (cm) 0.06 0 -Area of Debridement (cm) - Length 0.3 -Area of Debridement (cm) - Width 0.2 -Total Square (Area) (cm) 0.06 -Tunneling No -Undermining/Tunneling No -Circular Undermining No -Wound/Ulcer Outcome Not Healed Healed- Epithelialized -Ulcer Cleansing Rinsed/ Irrigated with Saline -Foul Odor after Cleansing No -Bioengineered Tissue No -Bleeding Controlled with Pressure -Offloading No -Type of Offloading Knee Walker -Treatment Response Procedure Tolerated Well -Debridement - Subq, 1st 20sq cm Yes #19 R Plantar Cluster -Time 11:39 09:33 -Correct Patient Yes Yes -Correct Side, Site, Position Yes Yes -Correct Procedure Yes Yes -Procedure Performed No Yes -Type of Procedure Debridement Debridement -Clinical Debridement Subcutaneous Subcutaneous -Tissue Removed Subcutaneous Subcutaneous -Post Debridement (cm) - Length 3.3 2.6 -Post Debridement (cm) - Width 1.8 2.0 -Post Debridement (cm) - Depth 1.5 0.4 -Total Square (Post) (cm) 5.94 5.20 -Area of Debridement (cm) - Length 3.3 2.6 -Area of Debridement (cm) - Width 1.8 2.0 -Total Square (Area) (cm) 5.94 5.20 -Tunneling Yes -Tunneling Position (O'clock) 9 -Tunneling Distance (cm) 3 -Undermining/Tunneling No -Circular Undermining No -Wound/Ulcer Outcome Not Healed Not Healed -Ulcer Cleansing Rinsed/ Rinsed/ Irrigated with Irrigated with Saline Saline -Foul Odor after Cleansing No No -Bioengineered Tissue No No -Bleeding Controlled with Pressure Pressure -Offloading No No -Treatment Response Procedure Tolerated Well -Debridement - Subq, 1st 20sq cm No Yes #18 R Lat -Time 11:40 09:34 -Correct Patient Yes Yes -Correct Side, Site, Position Yes Yes -Correct Procedure Yes Yes -Procedure Performed Yes Yes -Type of Procedure Debridement Debridement -Clinical Debridement Subcutaneous Subcutaneous -Tissue Removed Subcutaneous Subcutaneous -Post Debridement (cm) - Length 0.1 0.5 -Post Debridement (cm) - Width 0.1 0.3 -Post Debridement (cm) - Depth 0.1 0.2 -Total Square (Post) (cm) 0.01 0.15 -Area of Debridement (cm) - Length 0.1 0.5 -Area of Debridement (cm) - Width 0.1 0.3 -Total Square (Area) (cm) 0.01 0.15 -Tunneling No No -Undermining/Tunneling No No -Circular Undermining No No -Wound/Ulcer Outcome Not Healed Healed- Surgical Closure -Ulcer Cleansing Rinsed/ Rinsed/ Irrigated with Irrigated with Saline Saline -Foul Odor after Cleansing No No -Bioengineered Tissue No No -Bleeding Controlled with Pressure -Offloading No No -Treatment Response Procedure Procedure Tolerated Well Tolerated Well -Debridement - Subq, 1st 20sq cm No No #16 L Plantar foot -Time 11:41 09:34 -Correct Patient Yes Yes -Correct Side, Site, Position Yes Yes -Correct Procedure Yes Yes -Procedure Performed Yes Yes -Type of Procedure Debridement Debridement -Clinical Debridement Subcutaneous Subcutaneous -Tissue Removed Subcutaneous Subcutaneous -Post Debridement (cm) - Length 2.1 2.0 -Post Debridement (cm) - Width 1 1.3 -Post Debridement (cm) - Depth 0.5 0.3 -Total Square (Post) (cm) 2.1 2.60 -Area of Debridement (cm) - Length 2.1 2.0 -Area of Debridement (cm) - Width 1 1.3 -Total Square (Area) (cm) 2.1 2.60 -Tunneling No No -Undermining/Tunneling No No -Circular Undermining No No -Wound/Ulcer Outcome Not Healed Not Healed -Ulcer Cleansing Rinsed/ Rinsed/ Irrigated with Irrigated with Saline Saline -Foul Odor after Cleansing No No -Bioengineered Tissue Yes Yes -Type of Bioengineered Tissue Epifix Epifix 18mm Disc -Expiration Date 12/08/25 01/08/26 -Product Lot Number [id number] -Percent Used 100 100 -Lot number of Saline Used [id number] -Bleeding Controlled with Pressure Pressure -Offloading Yes No -Type of Offloading Surgical Shoe -Treatment Response Procedure Procedure Tolerated Well Tolerated Well -Debridement - Subq, 1st 20sq cm No No -Apply Skin Sub - 1st 25 sq cm - Feet 1 1 -Epifix (per sq cm) 4 -Epifix 18mm Disc 3 Pain Scale: 0-10 Numeric Is Patient Pain Free? Yes Yes - Nurse 3 - General Ulcer D/C NN Start: 04/14/21 11:15 Freq: Status: Active Protocol: Activity Type Activity Date Activity User E-Sign Co-Sign Detail Recorded Client Recorded Date Recorded By Document 04/14/21 11:51 [facility] [id number] 04/14/21 11:54 [facility] 04/14/21 11:51 Wound Care Nurse 3 20-right inferior plantar -Ulcer Cleansing Rinsed/ Irrigated with Saline -Foul Odor after Cleansing No -Primary Dressing Applied Other -Other Dressing moist to dry per mw rn -Primary Dressing Covered/Secured with Dry Gauze & Roll Gauze, Secured with Tape -Other Covering abd #19 R Plantar Cluster -Ulcer Cleansing Rinsed/ Irrigated with Saline -Foul Odor after Cleansing No -Primary Dressing Applied Other -Other Dressing moist to dry per mw rn -Primary Dressing Covered/Secured with Dry Gauze & Roll Gauze, Secured with Tape,Other -Other Covering abd #18 R Lat -Ulcer Cleansing Rinsed/ Irrigated with Saline -Foul Odor after Cleansing No -Primary Dressing Applied Other -Other Dressing moist to dry per mw rn -Primary Dressing Covered/Secured with Dry Gauze & Roll Gauze, Secured with Tape,Other -Other Covering abd #16 L Plantar foot -Other Dressing epifix -Primary Dressing Covered/Secured with Dry Gauze & Roll Gauze, Secured with Tape,Other -Other Covering abd, drsg per mw rn Right -Other michoacano to secure drsg Left -Compression Wrap [place] Wrap -Other michoacano to secure drsg Treatment Response Procedure Tolerated Well Pain Scale: 0-10 Numeric Is Patient Pain Free? Yes WC - Visit Discharge Discharge Condition Stable Ambulatory Status Wheelchair Facility Type Assisted Care Facility Wound debrided: Plantar foot Laterality: Left Wound Grade/Stage: Freedman 1 Type of Debridement: Excisional debridement Anesthesia Used: 4% Lidocaine Solution Depth: in the subcutaneous layer Percentage of wound debrided: 100 Instrument Used: #15 blade Tissue Removed: includes fibrous, devitalized, biofilm, callus and slough tissue Severity: Fat Layer Exposed Amount of bleeding with debridement: Mild Bleeding Controlled with: Pressure Patient tolerated procedure: Patient tolerated procedure well Additional Wound Wound debrided: Plantar and lateral foot Laterality: Right Wound Grade/Stage: Freedman 1 Type of Debridement: Excisional debridement Anesthesia Used: 4% Lidocaine Solution Depth: in the subcutaneous layer Percentage of wound debrided: 100 Instrument Used: 3mm curette Tissue Removed: Includes fibrous, devitalized, biofilm, callus and slough tissue Severity: Fat Layer Exposed Amount of bleeding with debridement: Mild Bleeding Controlled with: Pressure Patient tolerated procedure: Patient tolerated procedure well Assessment/Plan Assessment/Plan (1) Chronic ulcer of right foot with necrosis of muscle: CODE(S): L97.513 - Non-pressure chronic ulcer of other part of right foot with necrosis of muscle (2) Non-pressure chronic 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 layer exposed: CODE(S): L97.512 - Non-pressure chronic 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 layer exposed (3) Weakness: CODE(S): R53.1 - Weakness (4) Charcot's joint of right foot: CODE(S): M14.671 - Charcot's joint, right ankle and foot (5) Charcot's joint of left foot: CODE(S): M14.672 - Charcot's joint, left ankle and foot (6) Type 2 diabetes mellitus with diabetic polyneuropathy: CODE(S): E11.42 - Type 2 diabetes mellitus with diabetic polyneuropathy QUALIFIERS: Diabetes mellitus donor relations manager insulin use: with fci use Qualified Code(s): E11.42 - Type 2 diabetes mellitus with diabetic polyneuropathy; Z79.4 - wastewater design engineer (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 Overall improvement noted to wounds. Patient is noted to currently be in assisted living facility. There is improvement noted to the left foot ulceration. The right foot ulcerations seems stable. Discussed standing up for herself as she reports the nurses at her facility are not changing her dressing daily to her right foot ulcerations were debrided after verbal consent was obtained by the patient. The left plantar foot ulceration was approved for epi fix graft application I recommend application of advanced wound healing product to the left plantar foot ulceration. Prior authorization was confirmed. The indications, benefits, anticipated application and healing time management were reviewed in detail. Verbal consent was obtained in the procedure for today. Site was debrided and graft was applied according to standard protocol and was further secured with a wound veil and Steri-Strips. Patient was met to the hospital on 03/03/2021 for nausea and vomiting. Patient was noted to have gastroparesis. Patient was noted to also have worsening right foot during admission with acute Charcot event and multiple new wound developments. The left foot is noted to have been stable with showed signs of improvement during hospital visit. Patient had MRI and x-ray of the right foot obtained which were significant for acute Charcot changes as well as abscess to the plantar lateral foot. There is no signs of osteomyelitis noted. Cultures were obtained of bilateral foot's. Patient was seen by infectious disease. Patient was discharged on Levaquin per infectious disease. Patient was discharged to a SNF. Patient is to remain strict nonweightbearing to the right foot. Patient can transfer by putting weight through her toe or heel on the left foot. Patient is to continue right foot dakins wet to dry dressing changes with inser tion of gauze into tunneling area on right foot between the plantar and lateral ulcerations with good padding to dorsal foot/ankle. This is to be changed daily. Outer dressing is only to be changed on the left foot with the wound graft left intact. It is noted she is already been undergoing a comprehensive wound healing plan and has delayed and nonhealing. She has had prior bone biopsies, wound culture, and intervention with infectious disease. She has suspected adequate vascular perfusion for healing per her recent noninvasive vascular studies 09/01/2020 with triphasic waveforms noted. Patient's hemoglobin A1c was 9.8 in August 2020. Offloading strongly recommended. Optimal blood sugar control and increased protein intake also discussed. Being forced to stay off her feet at the SNF has allowed the most improvement noted in these wounds in a long time. Patient had x-rays obtained of the right foot Which I personally reviewed the images of. They demonstrated Charcot changes stable unchanged from previous study. Osteopenia was also noted All questions were answered and she was advised to call with any further questions or concerns. All signs and symptoms of local and systemic infection were discussed with the patient today. Follow up in 1 week. This note was generated with [employer] dictation software. It may contain incorrect words, spelling, and punctuation that were not noted in checking the note before signing.
[2021-04-29 08:57] VITALS: BP 115/46; PULSE 92; RESP 20; TEMP 36.4; BMI 31.3
--- NOTE | 2021-04-29 10:27 | PN.PCM_ITS ---
History of Present Illness Date of Service: 04/29/21 Chief Complaint: right foot ulcer left foot ulcer History of Wound: Patient is a 55-year-old female who presents to the clinic for bilateral foot ulcers. She denies fever, chill, nausea, vomiting. She is amenable to have epi fix applied today. She is trying to offload by keeping pressure on her left toes. She resides in a long-term facility and reports she wants to go home. Updated chart review was performed as noted is the following: Patient had MRI on 09/01/2020 showing 1. Large 5.81 x 1.70 cm open skin defect/wound on the lateral plantar aspect of the foot contains fluid and debris and can be a infected. The investing fascia and the plantar aspect of the foot beneath the fourth metatarsal bone encloses the complex fluid collection, and there is no demonstrated intramuscular extension or contact with the overlying b leonardo structures. 2. Mild cortical irregularity is present at the base and plantar and lateral aspect of the fifth metatarsal bone and cuboid which could be related to prior infection or sequela from previous trauma. 3. No active bone marrow edema or cortical erosion is seen to suggest active osteomyelitis. Patient had an I&D performed in the hospital by Dr. Guadarrama on 09/08/2020. That time patient was noted to have infection to left foot wound with Staphylococcus and Enterobacter which was treated during her stay at the hospital and TCU. Patient has had this ulceration for quite some time. 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 Patient also was noted to have bilateral varus foot deformity. Patient has a noted history of poor compliance of medical recommendations. Patient presents to the office ambulating in TCC unassisted. Patient was noted to have course of antibiotics while in the hospital in August 2020. Since being discharged from the hospital August 2020 patient has missed several of her follow-up appointments including here at the wound care center as well as with her primary care physician. She states issues with transportation. Patient missed follow-up appointment with infectious disease on November 12, 2020. She states that she saw them 11/26/2020. She states he didn't do anything She was admitted to the hospital 11/14/20 for altered mental status. She was found to have had 2 mini strokes per patient. The TCC was removed at that time and patient was to resume wound vac. Culture was obtained in the hospital growing enterobacter cloacae, klebsiella oxytoca, corynebacterium striatum, and enterococcus faecalis. This wasn't treated while in the hospital. Dr Tello was contacted and he started her on linezolid and omnicef 12/02/20. She has since finished this. Patient also relates that she is largely non weight bearing by sitting in a chair or on the couch she also uses a wheelchair at home. She states she moved back in with her daughter. She does admit to walking around without the boot to protect the total contact cast. She has broken the TCC multiple times She does admit to external rotation of the lower extremities which could be a contributing factor to ulcer breakdown of the right lateral ankle. She also admits to having offloading boot that she does not wear at night as she states she kicks it off due to her restless leg syndrome. This has since healed- right lateral ankle She relates that she has a in [place] and visits him for months at a time when she has the funds. This has contributed to her noncompliance Patient expresses concern over losing her was acute Charcot but seems reluctant to follow treatment recommendations. She does not seem willing or capable to follow instructions. Patient was recently at the hospital for gastroenteritis. Patient also noted that time to have worsening right foot with acute Charcot foot noted on x-ray an d MRI. Patient was also noted to have multiple new blisters formed during hospital stay with wounds that remain. It was determined during hospital visit the patient was not stable not to go to the operating room. Bedside debridements and cultures were obtained. Patient was started on Levaquin per infectious disease. Patient is to continue wound care and has since followed up with the wound care center. Right foot wound culture from 03/06/2021 with significant for bacterial growth of staph aureus and strep group C. Left foot wound did not appear clinically infected but was polymicrobial upon culture on 03/05/2021. MRI obtained of the right foot was negative for osteomyelitis but showed small focal abscess to lateral plantar foot. Progress of Wound: Overall improvement noted with more granulation tissue noted Objective Data Objective Data Vital Signs: Vital Signs Temp Pulse Resp BP 97.6 F L 92 20 H 115/46 L 04/29/21 08:57 04/29/21 08:57 04/29/21 08:57 04/29/21 08:57 Oxygen Delivery Method Room Air Weight: 91.138 kg Body Mass Index (BMI) 31.3 Physical Exam Narrative Const alert General Appearance: cooperative, sleepy Extremity normal capillary refill and no calf tenderness General Extremity: edema bilateral lower extremity, no tenderness to palpation of joints or extremities and other findings Other Details: Capillary refill time less than 3 seconds noted to digits ; Negative for clubbing or cyanosis Skin General Skin Exam: atrophy and dry skin; Negative for ecchymosis, erythema, eschar, pallor or dermatitis Rashes: no rashes Wounds: wounds noted Wound Narrative: plantar left foot ulceration appears improved. Granular base. No maceration noted. Mild periwound callus tissue noted. There is no erythema or edema or malodor or purulence or other suggestion signs of infection. Wound is to the level of muscle/fat. Serous drainage noted. There is increase in granulation tissue noted. 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 Charcot foot deformity noted bilaterally. DP and PT are diminished bilaterally Neuromuscular Sensory Exam: extremities light-touch: decreased Motor Exam: strength abnormal other (4/5 to all pedal muscle groups) There is foot and Charcot deformities noted to bilateral feet with prominent plantar lateral feet collapse Psych Appearance: appropriate Debridement Note Debridement Note Post-Debridement Measurements and Additional Note: Post-Debridement Measurements/Treatment - Nurse 1 - General Ulcer Assessment Start: 04/14/21 11:15 Freq: Status: Active Protocol: .LOWEXT Activity Type Activity Date Activity User E-Sign Co-Sign Detail Recorded Client Recorded Date Recorded By Document 04/14/21 11:15 ML [id number] 04/14/21 11:23 ML Document 04/21/21 09:01 [facility] [id number] 04/21/21 09:09 [facility] Document 04/29/21 08:57 [facility] [id number] 04/29/21 09:07 [facility] 04/14/21 04/21/21 04/29/21 11:15 09:01 08:57 - Today's Visit Information Type of service Follow-up Visit Follow-up Visit Follow-up Visit (Physician/CONVERTING TECHNICIAN (Physician/CONVERTING TECHNICIAN (Physician/CONVERTING TECHNICIAN ) ) ) Arrival Mode Wheelchair Wheelchair Wheelchair Transfer Assistance None Other Manual Transfer Assist (Other) standby x2 Patient Identification Verified (Name & Yes Yes Yes ) Patient Requires Transmission-Based No No No Precautions Safety Precautions NA Finger Stick Blood Sugar(mg/dl) (if 110 180 indicated): Blood Sugar Stated by Stated by Patient Patient Height and Weight Body Mass Index (BMI) 31.3 31.3 31.3 BMI Classification Obese Obese Obese Vital Signs Temperature (97.8 F-99.1 F) 97.3 F L 97 F L 97.6 F L Temperature Source Temporal Temporal Temporal Pulse Rate (60-100) 81 82 92 Pulse Location Monitor Monitor Monitor Respiratory Rate (12-18) 16 16 20 H Respiratory rate source Observation Observation Observation Oxygen Delivery Method Room Air Blood Pressure (90/60-120/80) 140/45 H 141/69 H 115/46 L Blood Pressure Mean (mm Hg) 76 93 69 Source Monitor Monitor Monitor Position Sitting Blood Pressure Location Left Arm History Since Last Visit- (Skip if this is Patient's initial visit) Have you changed medications since your No No No last visit? Any new allergies or adverse reactions No No No Had a fall/change in ADL's that may No No No increase risk of falls Signs or symptoms of abuse and/or No No No neglect since last visit Have you been in the hospital since your No No No last visit? Has dressing in place as prescribed Yes Yes Yes Has compression in place as prescribed N/A N/A Yes Has offloadiing in place as prescribed N/A Yes Yes Experienced any changes in pain level or No No No management Left Footwear No Footwear Slipper Right Footwear No Footwear Slipper Pain Scale: 0-10 Numeric Is Patient Pain Free? Yes Yes Yes WC - Nurse 1 - General Ulcer Measurement Start: 04/14/21 11:15 Freq: Status: Active Protocol: Activity Type Activity Date Activity User E-Sign Co-Sign Detail Recorded Client Recorded Date Recorded By Document 04/14/21 11:15 ML [id number] 04/14/21 11:23 ML Document 04/21/21 09:01 [facility] [id number] 04/21/21 09:09 BM Document 04/29/21 08:57 [facility] [id number] 04/29/21 09:07 BMF 04/14/21 04/21/21 04/29/21 11:15 09:01 08:57 Wound Center Nurse 1 20-right inferior plantar -Combined with other wound No -Current Size (cm) - Length 3.4 0.1 -Current Size (cm) - Width 2.5 0.1 -Current Size (cm) - Depth 0.3 0.1 -Total Square Cm 8.50 0.01 -Epithelialization Medium 34-66% Large 67-100% -Undermining/Tunneling Yes -Undermining/Tunneling Starts (O'clock 5 ) -Undermining/Tunneling Ends (O'clock) 9 -Maximum Distance (cm) 3 -Exudate Amt Medium -Exudate Type Serosanguineous -Wound Margin Distinct, Outline Attached -Granulation Amt Medium (34-66%) -Granulation Quality Pale -Slough/Fibrin Yes -Necrosis Amt Medium (34-66%) -Necrotic Tissue Type Adherent Slough -Texture (Natacha-wound Skin Appearance) Assessed, Scarring -Moisture (Natacha-wound Skin Appearance) No Abnormality Assessed,Dry/ Scaly -Color (Natacha-wound Skin Appearance) No Abnormality, Assessed Assessed -Temperature (Natacha-wound Skin No Abnormality No Abnormality Appearance) (Pt Warm) (Pt Warm) -Tenderness on Palpation (Natacha-wound No No Skin Appearance) -Ulcer Cleansing Wound Cleanser soapy water -Foul Odor after Cleansing No No -Anesthetic Used 4% Lidocaine 5% Lidocaine Solution Gel #19 R Plantar Cluster -Combined with other wound No -Current Size (cm) - Length 3.8 3.1 1.8 -Current Size (cm) - Width 3 2.2 4 -Current Size (cm) - Depth 0.1 1.1 0.9 -Total Square Cm 11.4 6.82 7.2 -Photo Taken No No -Epithelialization None Present -Tunneling No -Undermining/Tunneling Yes -Undermining/Tunneling Starts (O'clock 4 ) -Undermining/Tunneling Ends (O'clock) 7 -Maximum Distance (cm) 1.9 -Circular Undermining No -Exudate Amt Small Large Medium -Exudate Type Serosanguineous Serosanguineous Serosanguineous -Wound Margin Distinct, Thickened & Distinct, Outline Rolled Under Outline Attached Attached -Granulation Amt Large (67-100%) Medium (34-66%) Medium (34-66%) -Granulation Quality [place] Alt[place] -Slough/Fibrin No Yes -Necrosis Amt None Present (0 Medium (34-66%) %) -Necrotic Tissue Type Adherent Slough Adherent Slough -Texture (Natacha-wound Skin Appearance) No Abnormality Assessed,Callus Localized Edema ,Scarring ,Scarring -Moisture (Natacha-wound Skin Appearance) No Abnormality Assessed, No Abnormality Maceration,Dry/ Scaly -Color (Natacha-wound Skin Appearance) No Abnormality Assessed,Palor Rubor -Temperature (Natacha-wound Skin No Abnormality No Abnormality No Abnormality Appearance) (Pt Warm) (Pt Warm) (Pt Warm) -Tenderness on Palpation (Natacha-wound No No No Skin Appearance) -Ulcer Cleansing Rinsed/ soapy water Wound Cleanser Irrigated with Saline -Foul Odor after Cleansing No No -Anesthetic Used 4% Lidocaine 5% Lidocaine 4% Lidocaine Solution Gel Solution, Cetacaine #18 R Lat foot -Combined with other wound No -Current Size (cm) - Length 2 0.1 0.1 -Current Size (cm) - Width 2.5 0.1 0.1 -Current Size (cm) - Depth 0.8 0.1 0.1 -Total Square Cm 5.0 0.01 0.01 -Photo Taken No -Epithelialization Large 67-100% -Exudate Amt Medium None Present -Exudate Type Serosanguineous -Wound Margin Distinct, Distinct, Outline Outline Attached Attached -Granulation Amt Medium (34-66%) Large (67-100%) -Granulation Quality [place] -Slough/Fibrin Yes -Necrosis Amt Medium (34-66%) None Present (0 %) -Necrotic Tissue Type Adherent Slough -Structure Exposed N/A -Texture (Natacha-wound Skin Appearance) Assessed Assessed, Localized Edema Scarring ,Scarring -Moisture (Natacha-wound Skin Appearance) Assessed Assessed,Dry/ No Abnormality Scaly -Color (Natacha-wound Skin Appearance) Assessed Assessed No Abnormality -Temperature (Natacha-wound Skin No Abnormality No Abnormality No Abnormality Appearance) (Pt Warm) (Pt Warm) (Pt Warm) -Tenderness on Palpation (Natacha-wound No No No Skin Appearance) -Ulcer Cleansing Wound Cleanser soapy water Wound Cleanser -Foul Odor after Cleansing No No No -Anesthetic Used 4% Lidocaine 5% Lidocaine Solution Gel #16 L Plantar foot -Combined with other wound No -Current Size (cm) - Length 0.1 1.5 1.8 -Current Size (cm) - Width 0.1 1 0.8 -Current Size (cm) - Depth 0.1 0.5 0.5 -Total Square Cm 0.01 1.5 1.44 -Photo Taken No No -Epithelialization None Present -Tunneling No -Undermining/Tunneling No -Circular Undermining No -Exudate Amt None Present Large Small -Exudate Type Serosanguineous Serosanguineous -Wound Margin Distinct, Thickened & Distinct, Outline Rolled Under Outline Attached Attached -Granulation Amt Large (67-100%) Medium (34-66%) Large (67-100%) -Granulation Quality [place] -Slough/Fibrin No Yes -Necrosis Amt None Present (0 Medium (34-66%) Small (1-33%) %) -Necrotic Tissue Type Adherent Slough Adherent Slough -Structure Exposed N/A -Texture (Natacha-wound Skin Appearance) Assessed Assessed,Callus Scarring ,Scarring -Moisture (Natacha-wound Skin Appearance) Assessed Assessed Dry/Scaly -Color (Natacha-wound Skin Appearance) Assessed Assessed No Abnormality -Temperature (Natacha-wound Skin No Abnormality No Abnormality No Abnormality Appearance) (Pt Warm) (Pt Warm) (Pt Warm) -Tenderness on Palpation (Natacha-wound No No No Skin Appearance) -Ulcer Cleansing soapy water Wound Cleanser -Foul Odor after Cleansing No No -Anesthetic Used 5% Lidocaine 4% Lidocaine Gel Solution WC - Nurse 2 - General Ulcer CM Notes Start: 04/14/21 11:15 Freq: Status: Active Protocol: Activity Type Activity Date Activity User E-Sign Co-Sign Detail Recorded Client Recorded Date Recorded By Document 04/14/21 11:29 [id number] 04/14/21 11:42 Document 04/21/21 09:19 [id number] 04/21/21 09:36 Document 04/29/21 09:40 [id number] 04/29/21 09:45 04/14/21 04/21/21 04/29/21 11:29 09:19 09:40 Wound Center Nurse 2 20-right inferior plantar -Time 11:32 09:33 -Correct Patient Yes Yes -Correct Side, Site, Position Yes Yes -Correct Procedure Yes Yes -Procedure Performed Yes No -Type of Procedure Debridement -Clinical Debridement Subcutaneous -Tissue Removed Subcutaneous -Post Debridement (cm) - Length 0.3 0 -Post Debridement (cm) - Width 0.2 0 -Post Debridement (cm) - Depth 0.2 0 -Total Square (Post) (cm) 0.06 0 -Area of Debridement (cm) - Length 0.3 -Area of Debridement (cm) - Width 0.2 -Total Square (Area) (cm) 0.06 -Tunneling No -Undermining/Tunneling No -Circular Undermining No -Wound/Ulcer Outcome Not Healed Healed- Epithelialized -Ulcer Cleansing Rinsed/ Irrigated with Saline -Foul Odor after Cleansing No -Bioengineered Tissue No -Bleeding Controlled with Pressure -Offloading No -Type of Offloading Knee Walker -Treatment Response Procedure Tolerated Well -Debridement - Subq, 1st 20sq cm Yes #19 R Plantar Cluster -Time 11:39 09:33 09:41 -Correct Patient Yes Yes Yes -Correct Side, Site, Position Yes Yes Yes -Correct Procedure Yes Yes Yes -Procedure Performed No Yes Yes -Type of Procedure Debridement Debridement Debridement -Clinical Debridement Subcutaneous Subcutaneous Subcutaneous -Tissue Removed Subcutaneous Subcutaneous Subcutaneous -Post Debridement (cm) - Length 3.3 2.6 1.8 -Post Debridement (cm) - Width 1.8 2.0 4.1 -Post Debridement (cm) - Depth 1.5 0.4 1 -Total Square (Post) (cm) 5.94 5.20 7.38 -Area of Debridement (cm) - Length 3.3 2.6 1.8 -Area of Debridement (cm) - Width 1.8 2.0 4 -Total Square (Area) (cm) 5.94 5.20 7.2 -Tunneling Yes No -Tunneling Position (O'clock) 9 -Tunneling Distance (cm) 3 -Undermining/Tunneling No No -Circular Undermining No No -Wound/Ulcer Outcome Not Healed Not Healed Not Healed -Ulcer Cleansing Rinsed/ Rinsed/ Rinsed/ Irrigated with Irrigated with Irrigated with Saline Saline Saline -Foul Odor after Cleansing No No No -Bioengineered Tissue No No No -Bleeding Controlled with Pressure Pressure Pressure -Offloading No No Yes -Type of Offloading Surgical Shoe -Treatment Response Procedure Procedure Tolerated Well Tolerated Well -Debridement - Subq, 1st 20sq cm No Yes Yes #18 R Lat foot -Time 11:40 09:34 09:41 -Correct Patient Yes Yes Yes -Correct Side, Site, Position Yes Yes Yes -Correct Procedure Yes Yes Yes -Procedure Performed Yes Yes Yes -Type of Procedure Debridement Debridement Debridement -Clinical Debridement Subcutaneous Subcutaneous Subcutaneous -Tissue Removed Subcutaneous Subcutaneous Subcutaneous -Post Debridement (cm) - Length 0.1 0.5 0.2 -Post Debridement (cm) - Width 0.1 0.3 0.2 -Post Debridement (cm) - Depth 0.1 0.2 0.1 -Total Square (Post) (cm) 0.01 0.15 0.04 -Area of Debridement (cm) - Length 0.1 0.5 0.2 -Area of Debridement (cm) - Width 0.1 0.3 0.2 -Total Square (Area) (cm) 0.01 0.15 0.04 -Tunneling No No No -Undermining/Tunneling No No No -Circular Undermining No No No -Wound/Ulcer Outcome Not Healed Healed- Not Healed Surgical Closure -Ulcer Cleansing Rinsed/ Rinsed/ Rinsed/ Irrigated with Irrigated with Irrigated with Saline Saline Saline -Foul Odor after Cleansing No No No -Bioengineered Tissue No No No -Bleeding Controlled with Pressure Pressure -Offloading No No No -Treatment Response Procedure Procedure Procedure Tolerated Well Tolerated Well Tolerated Well -Debridement - Subq, 1st 20sq cm No No No #16 L Plantar foot -Time 11:41 09:34 09:42 -Correct Patient Yes Yes Yes -Correct Side, Site, Position Yes Yes Yes -Correct Procedure Yes Yes Yes -Procedure Performed Yes Yes Yes -Type of Procedure Debridement Debridement Debridement -Clinical Debridement Subcutaneous Subcutaneous Subcutaneous -Tissue Removed Subcutaneous Subcutaneous Subcutaneous -Post Debridement (cm) - Length 2.1 2.0 1.8 -Post Debridement (cm) - Width 1 1.3 0.8 -Post Debridement (cm) - Depth 0.5 0.3 0.5 -Total Square (Post) (cm) 2.1 2.60 1.44 -Area of Debridement (cm) - Length 2.1 2.0 1.8 -Area of Debridement (cm) - Width 1 1.3 0.8 -Total Square (Area) (cm) 2.1 2.60 1.44 -Tunneling No No No -Undermining/Tunneling No No No -Circular Undermining No No No -Wound/Ulcer Outcome Not Healed Not Healed Not Healed -Ulcer Cleansing Rinsed/ Rinsed/ Rinsed/ Irrigated with Irrigated with Irrigated with Saline Saline Saline -Foul Odor after Cleansing No No No -Bioengineered Tissue Yes Yes Yes -Type of Bioengineered Tissue Epifix Epifix 18mm Epifix 18mm Disc Disc -Expiration Date 12/08/25 01/08/26 01/08/26 -Product Lot Number [id number] -Percent Used 100 100 100 -Lot number of Saline Used [id number] -Bleeding Controlled with Pressure Pressure Pressure -Offloading Yes No Yes -Type of Offloading Surgical Shoe Surgical Shoe -Treatment Response Procedure Procedure Procedure Tolerated Well Tolerated Well Tolerated Well -Debridement - Subq, 1st 20sq cm No No No -Apply Skin Sub - 1st 25 sq cm - Feet 1 1 1 -Epifix (per sq cm) 4 -Epifix 18mm Disc 3 3 Pain Scale: 0-10 Numeric Is Patient Pain Free? Yes Yes Yes WC - Nurse 3 - General Ulcer D/C NN Start: 04/14/21 11:15 Freq: Status: Active Protocol: Activity Type Activity Date Activity User E-Sign Co-Sign Detail Recorded Client Recorded Date Recorded By Document 04/14/21 11:51 [facility] [id number] 04/14/21 11:54 [facility] Document 04/21/21 09:57 [facility] [id number] 04/21/21 09:59 BM Document 04/29/21 09:58 [facility] [id number] 04/29/21 10:00 [facility] 04/14/21 04/21/21 04/29/21 11:51 09:57 09:58 Wound Care Nurse 3 20-right inferior plantar -Ulcer Cleansing Rinsed/ Irrigated with Saline -Foul Odor after Cleansing No -Primary Dressing Applied Other -Other Dressing moist to dry per mw rn -Primary Dressing Covered/Secured with Dry Gauze & Roll Gauze, Secured with Tape -Other Covering abd #19 R Plantar Cluster -Ulcer Cleansing Rinsed/ Rinsed/ Rinsed/ Irrigated with Irrigated with Irrigated with Saline Saline Saline -Foul Odor after Cleansing No No No -Primary Dressing Applied Other Other Other -Other Dressing moist to dry MOIST TO DRY moist to dry per mw rn -Primary Dressing Covered/Secured with Dry Gauze & Dry Gauze & Dry Gauze & Roll Gauze, Roll Gauze, Roll Gauze, Secured with Secured with Secured with Tape,Other Tape,Other Tape,Other -Other Covering abd ABD abd #18 R Lat foot -Ulcer Cleansing Rinsed/ Rinsed/ Irrigated with Irrigated with Saline Saline -Foul Odor after Cleansing No No -Primary Dressing Applied Other Other -Other Dressing moist to dry MOIST TO DRY per mw rn -Primary Dressing Covered/Secured with Dry Gauze & Dry Gauze & Roll Gauze, Roll Gauze, Secured with Secured with Tape,Other Tape -Other Covering abd ABD #16 L Plantar foot -Other Dressing epifix EPIFIX -Primary Dressing Covered/Secured with Dry Gauze & Dry Gauze & Dry Gauze & Roll Gauze, Roll Gauze, Roll Gauze, Secured with Secured with Secured with Tape,Other Tape,Other Tape,Other -Other Covering abd, drsg per ABD epifix, abd mw rn Right -Compression Wrap [place] Wrap -Other [place] to secure [place] TO SECURE [place] to secure drsg Left -Compression Wrap [place] Wrap [place] Wrap [place] Wrap -Other [place] to secure [place] TO SECURE [place] to secure drsg Treatment Response Procedure Procedure Procedure Tolerated Well Tolerated Well Tolerated Well Pain Scale: 0-10 Numeric Is Patient Pain Free? Yes Yes Yes WC - Visit Discharge Discharge Condition Stable Stable Stable Ambulatory Status Wheelchair Wheelchair Wheelchair Facility Type Group Home Care [facility] Facility Facility Facility Assessment/Plan Assessment/Plan (1) Chronic ulcer of right foot with necrosis of muscle: CODE(S): L97.513 - Non-pressure chronic ulcer of other part of right foot with necrosis of muscle (2) Non-pressure chronic 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 layer exposed: CODE(S): L97.512 - Non-pressure chronic 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 layer exposed (3) Weakness: CODE(S): R53.1 - Weakness (4) Charcot's joint of right foot: CODE(S): M14.671 - Charcot's joint, right ankle and foot (5) Charcot's joint of left foot: CODE(S): M14.672 - Charcot's joint, left ankle and foot (6) Type 2 diabetes mellitus with diabetic polyneuropathy: CODE(S): E11.42 - Type 2 diabetes mellitus with diabetic polyneuropathy QUALIFIERS: Diabetes mellitus assistant terminal manager insulin use: with assistant terminal manager use Qualified Code(s): E11.42 - Type 2 diabetes mellitus with diabetic polyneuropathy; Z79.4 - terminal carman (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 This is a courtesy visit is today. She wants to go home and she appears to be improving per chart review. There are many factors that will determine her discharge from the long-term faci lity. I requested case management reach out to Dr. Cuevas for additional recommendations if that is a necessary step prior to discharge home. Overall improvement noted to wounds. Patient is noted to currently be in assisted living facility. There is improvement noted to the left foot ulceration. The right foot ulcerations seems stable. ulcerations were debrided after verbal consent was obtained by the patient. The left plantar foot ulceration was approved for epi fix graft application I recommend application of advanced wound healing product to the left plantar foot ulceration. Prior authorization was confirmed. The indications, benefits, anticipated application and healing time management were reviewed in detail. Verbal consent was obtained in the procedure for today. Site was debrided and graft was applied according to standard protocol and was further secured with a wound veil and Steri-Strips. 100% of the product was utilized. To keep clean dry and intact until follow-up next week with Dr. Cuevas. She is reassured no signs of infection are noted today. Patient is to remain strict nonweightbearing to the right foot. Patient can transfer by putting weight through her toe or heel on the left foot. Patient is to continue right foot dakins wet to dry dressing changes with insertion of gauze into tunneling area on right foot between the plantar and lateral ulcerations with good padding to dorsal foot/ankle. This is to be changed daily. Outer dressing is only to be changed on the left foot with the wound graft left intact. It is noted she is already been undergoing a comprehensive wound healing plan and has delayed and nonhealing. She has had prior bone biopsies, wound culture, and intervention with infectious disease. She has suspected adequate vascular perfusion for healing per her recent noninvasive vascular studies 09/01/2020 with triphasic waveforms noted. Patient's hemoglobin A1c was 9.8 in August 2020. Offloading strongly recommended. Optimal blood sugar control and increased protein intake also discussed. Being forced to stay off her feet at the SNF has allowed the most improvement noted in these wounds in a long time. Patient had x-rays obtained of the right foot Which I personally reviewed the images of. They demonstrated Charcot changes stable unchanged from previous study. Osteopenia was also noted All questions were answered and she was advised to call with any further questions or concerns. All signs and symptoms of local and systemic infection were discussed with the patient today. Follow up in 1 week. This note was generated with [employer] dictation software. It may contain incorrect words, spelling, and punctuation that were not noted in checking the note before signing.
[2021-05-05 09:46] VITALS: BP 123/61; PULSE 98; RESP 16; TEMP 36.4; BMI 31.3
--- NOTE | 2021-05-05 12:21 | PCM.WC.PN ---
History of Present Illness Date of Service: 05/05/21 Chief Complaint: right foot ulcer left foot ulcer History of Wound: Patient is a 55-year-old female who presents to the clinic for bilateral foot ulcers. She resides in a [facility] facility and reports she wants to go home after most recent hospital visit. Patient has been dealing with wounds to bilateral lower extremities for years. Patient has noted noncompliance [place] without care. Patient has significant delayed healing and foot deformities contributing to these ulcerations. Patient was recently at the hospital for gastroenteritis 03/03/21. Patient also noted that time to have worsening right foot with acute Charcot foot noted on x-ray and MRI. Patient was also noted to have multiple new blisters formed during hospital stay with wounds that remain. It was determined during hospital visit the patient was not stable not to go to the operating room. Bedside debridements and cultures were obtained. Patient was started on Levaquin per infectious disease. Patient is to continue wound care and has since followed up with the wound care center. Right foot wound culture from 03/06/2021 with significant for bacterial growth of staph aureus and strep group C. Left foot wound did not appear clinically infected but was polymicrobial upon culture on 03/05/2021. MRI obtained of the right foot was negative for osteomyelitis but showed small focal abscess to lateral plantar foot. Progress of Wound: Overall improvement noted with more granulation tissue noted Subjective Subjective Patient seen and examined resting comfortably. Patient denies any new pedal complaints. Patient denies any nausea, fever, chills, chest pain, shortness of breath, cough, streaking, purulence, vomiting. Patient wishes to leave the assisted living facility. She relates that she wishes to see her is out of the pantry. Patient relates recent left foot pain which had x-ray obtained at the facility which had nonspecific findings. She relates that this pain is largely resolved. Objective Data Objective Data Vital Signs: Vital Signs Temp Pulse Resp BP 97.6 F L 98 16 123/61 H 05/05/21 09:46 05/05/21 09:46 05/05/21 09:46 05/05/21 09:46 Oxygen Delivery Method Room Air Weight: 91.138 kg Body Mass Index (BMI) 31.3 Physical Exam Narrative Const alert General Appearance: cooperative, sleepy Extremity normal capillary refill and no calf tenderness General Extremity: edema bilateral lower extremity, no tenderness to palpation of joints or extremities and other findings Other Details: Capillary refill time less than 3 seconds noted to digits ; Negative for clubbing or cyanosis Skin General Skin Exam: atrophy and dry skin; Negative for ecchymosis, erythema, eschar, pallor or dermatitis Rashes: no rashes Wounds: wounds noted Wound Narrative: plantar left and right foot ulceration appears improved. Granular base. No maceration noted. No periwound callus tissue noted. There is no erythema or edema or malodor or purulence or other signs of infection. Wound is to the level of sub q. Serosanginous drainage noted. There is increase in granulation tissue noted. 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 Charcot foot deformity noted bilaterally. DP and PT are diminished bilaterally Neuromuscular Sensory Exam: extremities light-touch: decreased Motor Exam: strength abnormal other (4/5 to all pedal muscle groups) There is foot and Charcot deformities noted to bilateral feet with prominent plantar lateral feet collapse Psych Appearance: appropriate Debridement Note Debridement Note Post-Debridement Measurements and Additional Note: Post-Debridement Measurements/Treatment - Nurse 1 - General Ulcer Assessment Start: 04/14/21 11:15 Freq: Status: Active Protocol: .PinocularEXT Activity Type Activity Date Activity User E-Sign Co-Sign Detail Recorded Client Recorded Date Recorded By Document 04/14/21 11:15 ML [id number] 04/14/21 11:23 ML Document 04/21/21 09:01 [facility] [id number] 04/21/21 09:09 [facility] Document 04/29/21 08:57 BMF [id number] 04/29/21 09:07 [facility] Document 05/05/21 09:46 DL [id number] 05/05/21 09:57 DL 04/14/21 04/21/21 04/29/21 11:15 09:01 08:57 - Today's Visit Information Type of service Follow-up Visit Follow-up Visit Follow-up Visit (Physician/ASSISTANT MAINTENANCE MANAGER (Physician/ASSISTANT MAINTENANCE MANAGER (Physician/ASSISTANT MAINTENANCE MANAGER ) ) ) Arrival Mode Wheelchair Wheelchair Wheelchair Transfer Assistance None Other Manual Transfer Assist (Other) standby x2 Accompanied by Patient Identification Verified (Name & Yes Yes Yes ) Patient Requires Transmission-Based No No No Precautions Safety Precautions NA Finger Stick Blood Sugar(mg/dl) (if 110 180 indicated): Blood Sugar Stated by Stated by Patient Patient Height and Weight Body Mass Index (BMI) 31.3 31.3 31.3 BMI Classification Obese Obese Obese Vital Signs Temperature (97.8 F-99.1 F) 97.3 F L 97 F L 97.6 F L Temperature Source Temporal Temporal Temporal Pulse Rate (60-100) 81 82 92 Pulse Location Monitor Monitor Monitor Respiratory Rate (12-18) 16 16 20 H Respiratory rate source Observation Observation Observation Oxygen Delivery Method Room Air Blood Pressure (90/60-120/80) 140/45 H 141/69 H 115/46 L Blood Pressure Mean (mm Hg) 76 93 69 Source Monitor Monitor Monitor Position Sitting Blood Pressure Location Left Arm History Since Last Visit- (Skip if this is Patient's initial visit) Have you changed medications since your No No No last visit? Any new allergies or adverse reactions No No No Had a fall/change in ADL's that may No No No increase risk of falls Signs or symptoms of abuse and/or No No No neglect since last visit Have you been in the hospital since your No No No last visit? Has dressing in place as prescribed Yes Yes Yes Has compression in place as prescribed N/A N/A Yes Has offloadiing in place as prescribed N/A Yes Yes Experienced any changes in pain level or No No No management Left Footwear No Footwear Slipper Right Footwear No Footwear Slipper Pain Scale: 0-10 Numeric Is Patient Pain Free? Yes Yes Yes 05/05/21 09:46 WC - Today's Visit Information Type of service Follow-up Visit (Physician/ASSISTANT MAINTENANCE MANAGER ) Arrival Mode Wheelchair Transfer Assistance None Transfer Assist (Other) Accompanied by self Patient Identification Verified (Name & Yes ) Patient Requires Transmission-Based No Precautions Safety Precautions Fall Prevention Finger Stick Blood Sugar(mg/dl) (if 180 indicated): Blood Sugar Stated by Patient Height and Weight Body Mass Index (BMI) 31.3 BMI Classification Obese Vital Signs Temperature (97.8 F-99.1 F) 97.6 F L Temperature Source Temporal Pulse Rate (60-100) 98 Pulse Location Monitor Respiratory Rate (12-18) 16 Respiratory rate source Observation Oxygen Delivery Method Blood Pressure (90/60-120/80) 123/61 H Blood Pressure Mean (mm Hg) 81 Source Monitor Position Sitting Blood Pressure Location Left Arm History Since Last Visit- (Skip if this is Patient's initial visit) Have you changed medications since your No last visit? Any new allergies or adverse reactions No Had a fall/change in ADL's that may No increase risk of falls Signs or symptoms of abuse and/or No neglect since last visit Have you been in the hospital since your No last visit? Has dressing in place as prescribed Yes Has compression in place as prescribed Yes Has offloadiing in place as prescribed N/A Experienced any changes in pain level or No management Left Footwear Slipper Right Footwear Slipper Pain Scale: 0-10 Numeric Is Patient Pain Free? Yes WC - Nurse 1 - General Ulcer Measurement Start: 04/14/21 11:15 Freq: Status: Active Protocol: Activity Type Activity Date Activity User E-Sign Co-Sign Detail Recorded Client Recorded Date Recorded By Document 04/14/21 11:15 ML [id number] 04/14/21 11:23 ML Document 04/21/21 09:01 BMF [id number] 04/21/21 09:09 BMF Document 04/29/21 08:57 BMF [id number] 04/29/21 09:07 BM Document 05/05/21 09:46 DL [id number] 05/05/21 09:57 DL 04/14/21 04/21/21 04/29/21 11:15 09:01 08:57 Wound Center Nurse 1 20-right inferior plantar -Combined with other wound No -Current Size (cm) - Length 3.4 0.1 -Current Size (cm) - Width 2.5 0.1 -Current Size (cm) - Depth 0.3 0.1 -Total Square Cm 8.50 0.01 -Epithelialization Medium 34-66% Large 67-100% -Undermining/Tunneling Yes -Undermining/Tunneling Starts (O'clock 5 ) -Undermining/Tunneling Ends (O'clock) 9 -Maximum Distance (cm) 3 -Exudate Amt Medium -Exudate Type Serosanguineous -Wound Margin Distinct, Outline Attached -Granulation Amt Medium (34-66%) -Granulation Quality Pale -Slough/Fibrin Yes -Necrosis Amt Medium (34-66%) -Necrotic Tissue Type Adherent Slough -Texture (Natacha-wound Skin Appearance) Assessed, Scarring -Moisture (Natacha-wound Skin Appearance) No Abnormality Assessed,Dry/ Scaly -Color (Natacha-wound Skin Appearance) No Abnormality, Assessed Assessed -Temperature (Natacha-wound Skin No Abnormality No Abnormality Appearance) (Pt Warm) (Pt Warm) -Tenderness on Palpation (Natacha-wound No No Skin Appearance) -Ulcer Cleansing Wound Cleanser soapy water -Foul Odor after Cleansing No No -Anesthetic Used 4% Lidocaine 5% Lidocaine Solution Gel #19 R Plantar Cluster -Combined with other wound No -Current Size (cm) - Length 3.8 3.1 1.8 -Current Size (cm) - Width 3 2.2 4 -Current Size (cm) - Depth 0.1 1.1 0.9 -Total Square Cm 11.4 6.82 7.2 -Photo Taken No No -Epithelialization None Present -Tunneling No -Undermining/Tunneling Yes -Undermining/Tunneling Starts (O'clock 4 ) -Undermining/Tunneling Ends (O'clock) 7 -Maximum Distance (cm) 1.9 -Circular Undermining No -Exudate Amt Small Large Medium -Exudate Type Serosanguineous Serosanguineous Serosanguineous -Wound Margin Distinct, Thickened & Distinct, Outline Rolled Under Outline Attached Attached -Granulation Amt Large (67-100%) Medium (34-66%) Medium (34-66%) -Granulation Quality Elbert Elbert Elbert -Slough/Fibrin No Yes -Necrosis Amt None Present (0 Medium (34-66%) %) -Necrotic Tissue Type Adherent Slough Adherent Slough -Structure Exposed -Texture (Natacha-wound Skin Appearance) No Abnormality Assessed,Callus Localized Edema ,Scarring ,Scarring -Moisture (Natacha-wound Skin Appearance) No Abnormality Assessed, No Abnormality Maceration,Dry/ Scaly -Color (Natacha-wound Skin Appearance) No Abnormality Assessed,Palor Rubor -Temperature (Natacha-wound Skin No Abnormality No Abnormality No Abnormality Appearance) (Pt Warm) (Pt Warm) (Pt Warm) -Tenderness on Palpation (Natacha-wound No No No Skin Appearance) -Ulcer Cleansing Rinsed/ soapy water Wound Cleanser Irrigated with Saline -Foul Odor after Cleansing No No -Anesthetic Used 4% Lidocaine 5% Lidocaine 4% Lidocaine Solution Gel Solution, Cetacaine #18 R Lat foot -Combined with other wound No -Current Size (cm) - Length 2 0.1 0.1 -Current Size (cm) - Width 2.5 0.1 0.1 -Current Size (cm) - Depth 0.8 0.1 0.1 -Total Square Cm 5.0 0.01 0.01 -Photo Taken No -Epithelialization Large 67-100% -Exudate Amt Medium None Present -Exudate Type Serosanguineous -Wound Margin Distinct, Distinct, Outline Outline Attached Attached -Granulation Amt Medium (34-66%) Large (67-100%) -Granulation Quality Elbert -Slough/Fibrin Yes -Necrosis Amt Medium (34-66%) None Present (0 %) -Necrotic Tissue Type Adherent Slough -Structure Exposed N/A -Texture (Natacha-wound Skin Appearance) Assessed Assessed, Localized Edema Scarring ,Scarring -Moisture (Natacha-wound Skin Appearance) Assessed Assessed,Dry/ No Abnormality Scaly -Color (Natacha-wound Skin Appearance) Assessed Assessed No Abnormality -Temperature (Natacha-wound Skin No Abnormality No Abnormality No Abnormality Appearance) (Pt Warm) (Pt Warm) (Pt Warm) -Tenderness on Palpation (Natacha-wound No No No Skin Appearance) -Ulcer Cleansing Wound Cleanser soapy water Wound Cleanser -Foul Odor after Cleansing No No No -Anesthetic Used 4% Lidocaine 5% Lidocaine Solution Gel #16 L Plantar foot -Combined with other wound No -Current Size (cm) - Length 0.1 1.5 1.8 -Current Size (cm) - Width 0.1 1 0.8 -Current Size (cm) - Depth 0.1 0.5 0.5 -Total Square Cm 0.01 1.5 1.44 -Photo Taken No No -Epithelialization None Present -Tunneling No -Tunneling Position (O'clock) -Tunneling Distance (cm) -Undermining/Tunneling No -Circular Undermining No -Exudate Amt None Present Large Small -Exudate Type Serosanguineous Serosanguineous -Wound Margin Distinct, Thickened & Distinct, Outline Rolled Under Outline Attached Attached -Granulation Amt Large (67-100%) Medium (34-66%) Large (67-100%) -Granulation Quality Elbert Elbert -Slough/Fibrin No Yes -Necrosis Amt None Present (0 Medium (34-66%) Small (1-33%) %) -Necrotic Tissue Type Adherent Slough Adherent Slough -Structure Exposed N/A -Texture (Natacha-wound Skin Appearance) Assessed Assessed,Callus Scarring ,Scarring -Moisture (Natacha-wound Skin Appearance) Assessed Assessed Dry/Scaly -Color (Natacha-wound Skin Appearance) Assessed Assessed No Abnormality -Temperature (Natacha-wound Skin No Abnormality No Abnormality No Abnormality Appearance) (Pt Warm) (Pt Warm) (Pt Warm) -Tenderness on Palpation (Natacha-wound No No No Skin Appearance) -Ulcer Cleansing soapy water Wound Cleanser -Foul Odor after Cleansing No No -Anesthetic Used 5% Lidocaine 4% Lidocaine Gel Solution Lower Limb Edema Present 05/05/21 09:46 Wound Center Nurse 1 20-right inferior plantar -Combined with other wound -Current Size (cm) - Length -Current Size (cm) - Width -Current Size (cm) - Depth -Total Square Cm -Epithelialization -Undermining/Tunneling -Undermining/Tunneling Starts (O'clock ) -Undermining/Tunneling Ends (O'clock) -Maximum Distance (cm) -Exudate Amt -Exudate Type -Wound Margin -Granulation Amt -Granulation Quality -Slough/Fibrin -Necrosis Amt -Necrotic Tissue Type -Texture (Natacha-wound Skin Appearance) -Moisture (Natacha-wound Skin Appearance) -Color (Natacha-wound Skin Appearance) -Temperature (Natacha-wound Skin Appearance) -Tenderness on Palpation (Natacha-wound Skin Appearance) -Ulcer Cleansing -Foul Odor after Cleansing -Anesthetic Used #19 R Plantar Cluster -Combined with other wound No -Current Size (cm) - Length 3.8 -Current Size (cm) - Width 2.0 -Current Size (cm) - Depth 0.8 -Total Square Cm 7.60 -Photo Taken No -Epithelialization None Present -Tunneling No -Undermining/Tunneling Yes -Undermining/Tunneling Starts (O'clock 7 ) -Undermining/Tunneling Ends (O'clock) 11 -Maximum Distance (cm) 1.1 -Circular Undermining No -Exudate Amt Medium -Exudate Type Serosanguineous -Wound Margin Thickened -Granulation Amt Medium (34-66%) -Granulation Quality -Slough/Fibrin Yes -Necrosis Amt Small (1-33%) -Necrotic Tissue Type Adherent Slough -Structure Exposed N/A -Texture (Natacha-wound Skin Appearance) Assessed,Callus ,Scarring -Moisture (Natacha-wound Skin Appearance) Assessed, Maceration -Color (Natacha-wound Skin Appearance) Assessed -Temperature (Natacha-wound Skin No Abnormality Appearance) (Pt Warm) -Tenderness on Palpation (Natacha-wound No Skin Appearance) -Ulcer Cleansing soap and water -Foul Odor after Cleansing No -Anesthetic Used 4% Lidocaine Solution #18 R Lat foot -Combined with other wound No -Current Size (cm) - Length 0.1 -Current Size (cm) - Width 0.1 -Current Size (cm) - Depth 0.1 -Total Square Cm 0.01 -Photo Taken No -Epithelialization -Exudate Amt -Exudate Type -Wound Margin -Granulation Amt -Granulation Quality -Slough/Fibrin -Necrosis Amt -Necrotic Tissue Type -Structure Exposed -Texture (Natacha-wound Skin Appearance) Assessed, Scarring -Moisture (Natacha-wound Skin Appearance) Assessed,Dry/ Scaly -Color (Natacha-wound Skin Appearance) Assessed -Temperature (Natacha-wound Skin Appearance) -Tenderness on Palpation (Natacha-wound Skin Appearance) -Ulcer Cleansing soap and water -Foul Odor after Cleansing -Anesthetic Used #16 L Plantar foot -Combined with other wound No -Current Size (cm) - Length 1.5 -Current Size (cm) - Width 0.5 -Current Size (cm) - Depth 1.0 -Total Square Cm 0.75 -Photo Taken No -Epithelialization None Present -Tunneling Yes -Tunneling Position (O'clock) 1 -Tunneling Distance (cm) 1.6 -Undermining/Tunneling No -Circular Undermining No -Exudate Amt Medium -Exudate Type Serosanguineous -Wound Margin Thickened -Granulation Amt Medium (34-66%) -Granulation Quality Elbert -Slough/Fibrin Yes -Necrosis Amt Small (1-33%) -Necrotic Tissue Type Adherent Slough -Structure Exposed N/A -Texture (Natacha-wound Skin Appearance) Assessed,Callus ,Scarring -Moisture (Natacha-wound Skin Appearance) Maceration -Color (Natacha-wound Skin Appearance) Assessed -Temperature (Natacha-wound Skin No Abnormality Appearance) (Pt Warm) -Tenderness on Palpation (Natacha-wound No Skin Appearance) -Ulcer Cleansing soap and water -Foul Odor after Cleansing No -Anesthetic Used 4% Lidocaine Solution Lower Limb Edema Present No WC - Nurse 2 - General Ulcer CM Notes Start: 04/14/21 11:15 Freq: Status: Active Protocol: Activity Type Activity Date Activity User E-Sign Co-Sign Detail Recorded Client Recorded Date Recorded By Document 04/14/21 11:29 [id number] 04/14/21 11:42 Document 04/21/21 09:19 [id number] 04/21/21 09:36 Document 04/29/21 09:40 [id number] 04/29/21 09:45 Document 05/05/21 10:27 [id number] 05/05/21 10:31 04/14/21 04/21/21 04/29/21 11:29 09:19 09:40 Wound Center Nurse 2 20-right inferior plantar -Time 11:32 09:33 -Correct Patient Yes Yes -Correct Side, Site, Position Yes Yes -Correct Procedure Yes Yes -Procedure Performed Yes No -Type of Procedure Debridement -Clinical Debridement Subcutaneous -Tissue Removed Subcutaneous -Post Debridement (cm) - Length 0.3 0 -Post Debridement (cm) - Width 0.2 0 -Post Debridement (cm) - Depth 0.2 0 -Total Square (Post) (cm) 0.06 0 -Area of Debridement (cm) - Length 0.3 -Area of Debridement (cm) - Width 0.2 -Total Square (Area) (cm) 0.06 -Tunneling No -Undermining/Tunneling No -Circular Undermining No -Wound/Ulcer Outcome Not Healed Healed- Epithelialized -Ulcer Cleansing Rinsed/ Irrigated with Saline -Foul Odor after Cleansing No -Bioengineered Tissue No -Bleeding Controlled with Pressure -Offloading No -Type of Offloading Knee Walker -Treatment Response Procedure Tolerated Well -Debridement - Subq, 1st 20sq cm Yes #19 R Plantar Cluster -Time 11:39 09:33 09:41 -Correct Patient Yes Yes Yes -Correct Side, Site, Position Yes Yes Yes -Correct Procedure Yes Yes Yes -Procedure Performed No Yes Yes -Type of Procedure Debridement Debridement Debridement -Clinical Debridement Subcutaneous Subcutaneous Subcutaneous -Tissue Removed Subcutaneous Subcutaneous Subcutaneous -Post Debridement (cm) - Length 3.3 2.6 1.8 -Post Debridement (cm) - Width 1.8 2.0 4.1 -Post Debridement (cm) - Depth 1.5 0.4 1 -Total Square (Post) (cm) 5.94 5.20 7.38 -Area of Debridement (cm) - Length 3.3 2.6 1.8 -Area of Debridement (cm) - Width 1.8 2.0 4 -Total Square (Area) (cm) 5.94 5.20 7.2 -Tunneling Yes No -Tunneling Position (O'clock) 9 -Tunneling Distance (cm) 3 -Undermining/Tunneling No No -Circular Undermining No No -Wound/Ulcer Outcome Not Healed Not Healed Not Healed -Ulcer Cleansing Rinsed/ Rinsed/ Rinsed/ Irrigated with Irrigated with Irrigated with Saline Saline Saline -Foul Odor after Cleansing No No No -Bioengineered Tissue No No No -Bleeding Controlled with Pressure Pressure Pressure -Offloading No No Yes -Type of Offloading Surgical Shoe -Treatment Response Procedure Procedure Tolerated Well Tolerated Well -Debridement - Subq, 1st 20sq cm No Yes Yes #18 R Lat foot -Time 11:40 09:34 09:41 -Correct Patient Yes Yes Yes -Correct Side, Site, Position Yes Yes Yes -Correct Procedure Yes Yes Yes -Procedure Performed Yes Yes Yes -Type of Procedure Debridement Debridement Debridement -Clinical Debridement Subcutaneous Subcutaneous Subcutaneous -Tissue Removed Subcutaneous Subcutaneous Subcutaneous -Post Debridement (cm) - Length 0.1 0.5 0.2 -Post Debridement (cm) - Width 0.1 0.3 0.2 -Post Debridement (cm) - Depth 0.1 0.2 0.1 -Total Square (Post) (cm) 0.01 0.15 0.04 -Area of Debridement (cm) - Length 0.1 0.5 0.2 -Area of Debridement (cm) - Width 0.1 0.3 0.2 -Total Square (Area) (cm) 0.01 0.15 0.04 -Tunneling No No No -Undermining/Tunneling No No No -Circular Undermining No No No -Wound/Ulcer Outcome Not Healed Healed- Not Healed Surgical Closure -Ulcer Cleansing Rinsed/ Rinsed/ Rinsed/ Irrigated with Irrigated with Irrigated with Saline Saline Saline -Foul Odor after Cleansing No No No -Bioengineered Tissue No No No -Bleeding Controlled with Pressure Pressure -Offloading No No No -Treatment Response Procedure Procedure Procedure Tolerated Well Tolerated Well Tolerated Well -Debridement - Subq, 1st 20sq cm No No No #16 L Plantar foot -Time 11:41 09:34 09:42 -Correct Patient Yes Yes Yes -Correct Side, Site, Position Yes Yes Yes -Correct Procedure Yes Yes Yes -Procedure Performed Yes Yes Yes -Type of Procedure Debridement Debridement Debridement -Clinical Debridement Subcutaneous Subcutaneous Subcutaneous -Tissue Removed Subcutaneous Subcutaneous Subcutaneous -Post Debridement (cm) - Length 2.1 2.0 1.8 -Post Debridement (cm) - Width 1 1.3 0.8 -Post Debridement (cm) - Depth 0.5 0.3 0.5 -Total Square (Post) (cm) 2.1 2.60 1.44 -Area of Debridement (cm) - Length 2.1 2.0 1.8 -Area of Debridement (cm) - Width 1 1.3 0.8 -Total Square (Area) (cm) 2.1 2.60 1.44 -Tunneling No No No -Undermining/Tunneling No No No -Circular Undermining No No No -Wound/Ulcer Outcome Not Healed Not Healed Not Healed -Ulcer Cleansing Rinsed/ Rinsed/ Rinsed/ Irrigated with Irrigated with Irrigated with Saline Saline Saline -Foul Odor after Cleansing No No No -Bioengineered Tissue Yes Yes Yes -Type of Bioengineered Tissue Epifix Epifix 18mm Epifix 18mm Disc Disc -Expiration Date 12/08/25 01/08/26 01/08/26 -Product Lot Number [id number] -Percent Used 100 100 100 -Lot number of Saline Used [id number] -Bleeding Controlled with Pressure Pressure Pressure -Offloading Yes No Yes -Type of Offloading Surgical Shoe Surgical Shoe -Treatment Response Procedure Procedure Procedure Tolerated Well Tolerated Well Tolerated Well -Debridement - Subq, 1st 20sq cm No No No -Apply Skin Sub - 1st 25 sq cm - Feet 1 1 1 -Epifix (per sq cm) 4 -Epifix 18mm Disc 3 3 Pain Scale: 0-10 Numeric Is Patient Pain Free? Yes Yes Yes 05/05/21 10:27 Wound Center Nurse 2 20-right inferior plantar -Time -Correct Patient -Correct Side, Site, Position -Correct Procedure -Procedure Performed -Type of Procedure -Clinical Debridement -Tissue Removed -Post Debridement (cm) - Length -Post Debridement (cm) - Width -Post Debridement (cm) - Depth -Total Square (Post) (cm) -Area of Debridement (cm) - Length -Area of Debridement (cm) - Width -Total Square (Area) (cm) -Tunneling -Undermining/Tunneling -Circular Undermining -Wound/Ulcer Outcome -Ulcer Cleansing -Foul Odor after Cleansing -Bioengineered Tissue -Bleeding Controlled with -Offloading -Type of Offloading -Treatment Response -Debridement - Subq, 20sq cm #19 R Plantar Cluster -Time 10:29 -Correct Patient Yes -Correct Side, Site, Position Yes -Correct Procedure Yes -Procedure Performed Yes -Type of Procedure Debridement -Clinical Debridement Subcutaneous -Tissue Removed Subcutaneous -Post Debridement (cm) - Length 3 -Post Debridement (cm) - Width 2 -Post Debridement (cm) - Depth 0.5 -Total Square (Post) (cm) 6 -Area of Debridement (cm) - Length 3 -Area of Debridement (cm) - Width 2 -Total Square (Area) (cm) 6 -Tunneling No -Tunneling Position (O'clock) -Tunneling Distance (cm) -Undermining/Tunneling No -Circular Undermining No -Wound/Ulcer Outcome Not Healed -Ulcer Cleansing Rinsed/ Irrigated with Saline -Foul Odor after Cleansing No -Bioengineered Tissue No -Bleeding Controlled with Pressure -Offloading Yes -Type of Offloading Surgical Shoe -Treatment Response Procedure Tolerated Well -Debridement - Subq, 20sq cm Yes #18 R Lat foot -Time 10:30 -Correct Patient No -Correct Side, Site, Position No -Correct Procedure No -Procedure Performed No -Type of Procedure -Clinical Debridement -Tissue Removed -Post Debridement (cm) - Length -Post Debridement (cm) - Width -Post Debridement (cm) - Depth -Total Square (Post) (cm) -Area of Debridement (cm) - Length -Area of Debridement (cm) - Width -Total Square (Area) (cm) -Tunneling -Undermining/Tunneling -Circular Undermining -Wound/Ulcer Outcome Healed- Epithelialized -Ulcer Cleansing -Foul Odor after Cleansing -Bioengineered Tissue -Bleeding Controlled with -Offloading -Treatment Response -Debridement - Subq, 20sq cm #16 L Plantar foot -Time 10:31 -Correct Patient Yes -Correct Side, Site, Position Yes -Correct Procedure Yes -Procedure Performed Yes -Type of Procedure Debridement -Clinical Debridement Subcutaneous -Tissue Removed Subcutaneous -Post Debridement (cm) - Length 1.5 -Post Debridement (cm) - Width 0.9 -Post Debridement (cm) - Depth 0.3 -Total Square (Post) (cm) 1.35 -Area of Debridement (cm) - Length 1.5 -Area of Debridement (cm) - Width 0.9 -Total Square (Area) (cm) 1.35 -Tunneling No -Undermining/Tunneling -Circular Undermining No -Wound/Ulcer Outcome Not Healed -Ulcer Cleansing Rinsed/ Irrigated with Saline -Foul Odor after Cleansing No -Bioengineered Tissue No -Type of Bioengineered Tissue -Expiration Date -Product Lot Number -Percent Used -Lot number of Saline Used -Bleeding Controlled with Pressure -Offloading Yes -Type of Offloading Surgical Shoe -Treatment Response Procedure Tolerated Well -Debridement - Subq, 1st 20sq cm No -Apply Skin Sub - 1st 25 sq cm - Feet -Epifix (per sq cm) -Epifix 18mm Disc Pain Scale: 0-10 Numeric Is Patient Pain Free? Yes WC - Nurse 3 - General Ulcer D/C NN Start: 04/14/21 11:15 Freq: Status: Active Protocol: Activity Type Activity Date Activity User E-Sign Co-Sign Detail Recorded Client Recorded Date Recorded By Document 04/14/21 11:51 [facility] [id number] 04/14/21 11:54 [facility] Document 04/21/21 09:57 [facility] [id number] 04/21/21 09:59 [facility] Document 04/29/21 09:58 [facility] [id number] 04/29/21 10:00 [facility] 04/14/21 04/21/21 04/29/21 11:51 09:57 09:58 Wound Care Nurse 3 20-right inferior plantar -Ulcer Cleansing Rinsed/ Irrigated with Saline -Foul Odor after Cleansing No -Primary Dressing Applied Other -Other Dressing moist to dry per mw rn -Primary Dressing Covered/Secured with Dry Gauze & Roll Gauze, Secured with Tape -Other Covering abd #19 R Plantar Cluster -Ulcer Cleansing Rinsed/ Rinsed/ Rinsed/ Irrigated with Irrigated with Irrigated with Saline Saline Saline -Foul Odor after Cleansing No No No -Primary Dressing Applied Other Other Other -Other Dressing moist to dry MOIST TO DRY moist to dry per mw rn -Primary Dressing Covered/Secured with Dry Gauze & Dry Gauze & Dry Gauze & Roll Gauze, Roll Gauze, Roll Gauze, Secured with Secured with Secured with Tape,Other Tape,Other Tape,Other -Other Covering abd ABD abd #18 R Lat foot -Ulcer Cleansing Rinsed/ Rinsed/ Irrigated with Irrigated with Saline Saline -Foul Odor after Cleansing No No -Primary Dressing Applied Other Other -Other Dressing moist to dry MOIST TO DRY per mw rn -Primary Dressing Covered/Secured with Dry Gauze & Dry Gauze & Roll Gauze, Roll Gauze, Secured with Secured with Tape,Other Tape -Other Covering abd ABD #16 L Plantar foot -Other Dressing epifix EPIFIX -Primary Dressing Covered/Secured with Dry Gauze & Dry Gauze & Dry Gauze & Roll Gauze, Roll Gauze, Roll Gauze, Secured with Secured with Secured with Tape,Other Tape,Other Tape,Other -Other Covering abd, drsg per ABD epifix, abd mw rn Right -Compression Wrap [place] Wrap -Other [place] to secure [place] TO SECURE [place] to secure drsg Left -Compression Wrap [place] Wrap [place] Wrap [place] Wrap -Other [place] to secure [place] TO SECURE [place] to secure drsg Treatment Response Procedure Procedure Procedure Tolerated Well Tolerated Well Tolerated Well Pain Scale: 0-10 Numeric Is Patient Pain Free? Yes Yes Yes WC - Visit Discharge Discharge Condition Stable Stable Stable Ambulatory Status Wheelchair Wheelchair Wheelchair Facility Type [facility] Care Employee Benefits Director Care [facility] Care Facility Facility Facility Wound debrided: plantar foot Laterality: Right Wound Grade/Stage: freedman 2 Type of Debridement: Excisional debridement Anesthesia Used: 4% Lidocaine Solution Depth: in the subcutaneous layer Percentage of wound debrided: 100 Instrument Used: 3mm curette Tissue Removed: includes fibrous, devitalized, biofilm, callus and slough tissue Severity: Fat Layer Exposed Amount of bleeding with debridement: Mild Bleeding Controlled with: Pressure Patient tolerated procedure: Patient tolerated procedure well Additional Wound Wound debrided: Plantar foot Laterality: Left Wound Grade/Stage: Freedman 2 Type of Debridement: Excisional debridement Anesthesia Used: 4% Lidocaine Solution Depth: in the subcutaneous layer Percentage of wound debrided: 100 Instrument Used: 3mm curette Tissue Removed: Includes fibrous, devitalized, biofilm, callus and slough tissue Severity: Fat Layer Exposed Amount of bleeding with debridement: Mild Bleeding Controlled with: Pressure Patient tolerated procedure: Patient tolerated procedure well Assessment/Plan Assessment/Plan (1) Chronic ulcer of right foot with necrosis of muscle: CODE(S): L97.513 - Non-pressure chronic ulcer of other part of right foot with necrosis of muscle (2) Non-pressure chronic 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 layer exposed: CODE(S): L97.512 - Non-pressure chronic 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 layer exposed (3) Weakness: CODE(S): R53.1 - Weakness (4) Charcot's joint of right foot: CODE(S): M14.671 - Charcot's joint, right ankle and foot (5) Charcot's joint of left foot: CODE(S): M14.672 - Charcot's joint, left ankle and foot (6) Type 2 diabetes mellitus with diabetic polyneuropathy: CODE(S): E11.42 - Type 2 diabetes mellitus with diabetic polyneuropathy QUALIFIERS: Diabetes mellitus intermediate card tender insulin use: with intermediate card tender use Qualified Code(s): E11.42 - Type 2 diabetes mellitus with diabetic polyneuropathy; Z79.4 - exterminator (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 Overall improvement noted to wounds. Patient is noted to currently be in assisted living facility. There is improvement noted to the left foot ulceration. The right foot ulcerations seems stable. ulcerations were debrided after verbal consent was obtained by the patient. She is reassured no signs of infection are noted today. Patient is to remain strict nonweightbearing to the right foot. Patient can transfer by putting weight through her toe or heel on the left foot. Patient is to continue washing feet and wounds with soap and water daily and then cover with fibracol to bilateral foot wounds. This is to be changed daily covered with dry sterile dressing. This to be covered with double Tubigrip for swelling control. It is noted she is already been undergoing a comprehensive wound healing plan and has delayed and nonhealing. She has had prior bone biopsies, wound culture, and intervention with infectious disease. She has suspected adequate vascular perfusion for healing per her recent noninvasive vascular studies 09/01/2020 with triphasic waveforms noted. Patient's hemoglobin A1c was 9.8 in August 2020. Offloading strongly recommended. Optimal blood sugar control and increased protein intake also discussed. Being forced to stay off her feet at the SNF has allowed the most improvement noted in these wounds in a long time. Apply fourth TheraSkin for the right foot ulceration. All questions were answered and she was advised to call with any further questions or concerns. All signs and symptoms of local and systemic infection were discussed with the patient today. Patient relates that she wishes to go home. Discussed with patient at length that she has had marked improvement of her foot wounds noted while being in the facility. Discussed that this is likely due to her being able to stay off her feet more as well as better dietary control while in the facility. Patient is rather adamant that she wishes to go home and promises that she will stay off her feet and continue to keep her blood sugars controlled at home. She relates that she has gotten clearance from physical therapy. She relates she will be in her wheelchair at home. Reiterated to her the importance of nonweightbearing especially to the Charcot foot on her right as well as for wound healing. Patient promises that she will be able to properly take care of herself as well as to rely on family in order to continue her progress. If patient is able to do this I am okay with her going home from the facility. It should be noted that the patient had problems accomplishing these feeds in the past. Follow up in 1 week. This note was generated with [employer] dictation software. It may contain incorrect words, spelling, and punctuation that were not noted in checking the note before signing.
== END 2021-05-09 23:59 ==
LOC: WC 09:45
PROVIDERS: PCP Family Medicine; Referring Provider Podiatrist; Visit Provider Podiatrist Foot & Ankle Surgery
DX: E11.621 Type 2 diabetes mellitus with foot ulcer (principal); L97.412 Non-pressure chronic ulcer of right heel and midfoot with fat layer exposed; L97.422 Non-pressure chronic ulcer of left heel and midfoot with fat layer exposed; Z91.19 Patient's noncompliance with other medical treatment and regimen; E11.610 Type 2 diabetes mellitus with diabetic neuropathic arthropathy; E11.42 Type 2 diabetes mellitus with diabetic polyneuropathy; M85.80 Other specified disorders of bone density and structure, unspecified site; L84 Corns and callosities; G25.81 Restless legs syndrome; E66.9 Obesity, unspecified; Z68.31 Body mass index [BMI] 31.0-31.9, adult; Z79.4 Long term (current) use of insulin; Z79.02 Long term (current) use of antithrombotics/antiplatelets; Z79.82 Long term (current) use of aspirin; Z79.890 Hormone replacement therapy; Z79.899 Other long term (current) drug therapy
CPT/HCPCS: 11042; 15275; Q4186

== ENCOUNTER → 2021-05-22 13:09 | Outpatient (CLI) | payer MEDICARE, MEDICAID, SELFPAY ==
[2018-09-21 13:23] VITALS: BMI 29.3
[2021-05-19 11:15] VITALS: BMI 32.3
--- NOTE | 2021-05-22 13:13 | CT_ITS ---
STUDY: CT ABDOMEN AND PELVIS WITHOUT CONTRAST REASON FOR EXAM: Female, 55 years old. FLANK PAIN. Hematuria. Chronic renal failure. RADIATION DOSAGE (If Supplied By Facility): CTDIvol = ( 18.17 ) mGy, DLP = ( 985.31 ) mGycm TECHNIQUE: Transaxial images were obtained from the dome of the diaphragm to the symphysis pubis without oral contrast, and without intravenous contrast. Sagittal and coronal images were reconstructed. Individualized dose optimization techniques were used for this CT. COMPARISON: Comparison is made with prior study dated 03/03/2021. FINDINGS: Minimal increased linear markings at the left lung base. Coronary artery calcification. Minimal anterior pericardial thickening. Normal liver. The gallbladder is contracted. Normal spleen. Normal pancreas. Normal bilateral adrenal glands. Normal right kidney. Normal left kidney. Normal visualized stomach. Normal small intestine. Normal colon. There is non-visualization of the appendix. There is scattered atherosclerotic calcification of the abdominal aorta, without a demonstrated aneurysm. Calcific plaque is seen at the origin of the left renal artery. Normal inferior vena cava. Normal retroperitoneum. Normal urinary bladder. There is a small umbilical hernia containing fat. There are diffuse degenerative changes of the visualized lumbar spine. CT/Abdomen/Pelvis without Cont IMPRESSION: Stable examination. No acute abnormality is seen. Electronically Signed: Ronnie Saavedra MD at 14:56 EDT , Service support ,
== END ==
PROVIDERS: PCP Family Medicine; Referring Provider Emergency Medicine; Visit Provider Emergency Medicine
DX: R31.29 Other microscopic hematuria (principal)
CPT/HCPCS: 74176

== ENCOUNTER → 2021-06-04 15:59 | Outpatient (CLI) | payer MEDICARE, MEDICAID, SELFPAY ==
[2018-09-21 13:23] VITALS: BMI 29.3
[2021-06-04 16:44] LABS: Albumin, Serum 2.6 g/dL (3.2-5.0); BUN 35 mg/dL (7-18); BUN/Creat Ratio 19.1 RATIO (10-20); Calcium,Total 9.1 mg/dL (8.5-10.1); Chloride 107 mmol/L (98-107); Creatinine, Serum 1.83 mg/dL (0.55-1.02); EST Glomerular Filtration Rate 30 mL/min (>60); Est Glom Filt Rate - Afr Amer 37 mL/min (>60); Glucose 296 mg/dL (74-106); Phosphorus 4.3 mg/dL (2.5-4.9); Potassium 4.8 mmol/L (3.5-5.1); Sodium Level 137 mmol/L (136-145)
[2021-06-04 17:05] LABS: Protein, Urine (Random) 583.9 mg/dL (<11.9); Protein:Creat Ratio 5614 mg/g CRE (0-200)
[2021-06-05 10:07] LABS: PTHIN 131.2 pg/mL (18.4-80.1)
== END ==
PROVIDERS: PCP Family Medicine; Visit Provider Internal Medicine Nephrology
DX: N18.4 Chronic kidney disease, stage 4 (severe) (principal)
CPT/HCPCS: 36415; 80069; 82570; 83970; 84156

== ENCOUNTER 2021-06-09 09:00 | Outpatient (RCR) | payer MEDICARE, MEDICAID, SELFPAY ==
[2018-09-21 13:23] VITALS: BMI 29.3
[2021-05-10 00:19] VITALS: BP 123/61; PULSE 98; RESP 16; TEMP 36.4; BMI 32.3
[2021-05-19 11:15] VITALS: BP 155/76; PULSE 97; RESP 20; TEMP 36.8; BMI 32.3
--- NOTE | 2021-05-19 12:36 | PCM.WC.PN ---
History of Present Illness Date of Service: 05/19/21 Chief Complaint: right foot ulcer left foot ulcer History of Wound: Patient is a 55-year-old female who presents to the clinic for bilateral foot ulcers. She resides in a [facility] facility and reports she wants to go home after most recent hospital visit. Patient has been dealing with wounds to bilateral lower extremities for years. Patient has noted noncompliance [place] care. Patient has significant delayed healing and foot deformities contributing to these ulcerations. Patient was recently at the hospital for gastroenteritis 03/03/21. Patient also noted that time to have worsening right foot with acute Charcot foot noted on x-ray and MRI. Patient was also noted to have multiple new blisters formed during hospital stay with wounds that remain. It was determined during hospital visit the patient was not stable not to go to the operating room. Bedside debridements and cultures were obtained. Patient was started on Levaquin per infectious disease. Patient is to continue wound care and has since followed up with the wound care center. Right foot wound culture from 03/06/2021 with significant for bacterial growth of staph aureus and strep group C. Left foot wound did not appear clinically infected but was polymicrobial upon culture on 03/05/2021. MRI obtained of the right foot was negative for osteomyelitis but showed small focal abscess to lateral plantar foot. Progress of Wound: Worsening Subjective Subjective Patient seen and examined resting comfortably. Patient denies any new pedal complaints. Patient denies any , fever, chills, chest pain, shortness of breath, cough, streaking, purulence, vomiting. Patient is having some nausea she is states that she is generally nauseous. She complains of increased swelling and pain in her feet and ankles Objective Data Objective Data Vital Signs: Vital Signs Temp Pulse Resp BP 98.2 F 97 20 H 155/76 H 05/19/21 11:15 05/19/21 11:15 05/19/21 11:15 05/19/21 11:15 Weight: 91.138 kg Body Mass Index (BMI) 32.3 Physical Exam Narrative Const alert General Appearance: cooperative, sleepy Extremity normal capillary refill and no calf tenderness General Extremity: no tenderness to palpation of joints or extremities and other findings Other Details: Capillary refill time less than 3 seconds noted to digits ; Negative for clubbing or cyanosis Skin General Skin Exam: atrophy and dry skin; Negative for ecchymosis, erythema, eschar, pallor or dermatitis Rashes: no rashes Wound Narrative: plantar left foot ulceration has gotten larger. Granular base. Mild maceration noted. Mild periwound callus tissue noted. There is no erythema or edema or malodor or purulence or other suggestion signs of infection. Serous drainage noted. There is some mild undermining noted especially at the 6-9 o'clock positioning Plantar right foot ulceration is stable. Granular base. Mild maceration noted. No periwound callus tissue noted. There is no erythema or edema or malodor or purulence or other suggestion signs of infection. Serosanguineous drainage noted. There is some tunneling noted at 10:00 Right lateral foot wound has reopened. Granular base. Mild maceration noted. No periwound callus tissue noted. There is no erythema or edema or malodor or purulence or other suggestion signs of infection. Serosanguineous drainage noted Amputations noted to bilateral fifth rays. Charcot foot deformity noted bilaterally. Worsening bilateral lower extremity edema noted. No calf tenderness negative Jaswinder and Nuñez sign. DP and PT are diminished bilaterally Neuromuscular Sensory Exam: extremities light-touch: decreased Motor Exam: strength abnormal other (4/5 to all pedal muscle groups) There is foot and Charcot deformities noted to bilateral feet with prominent plantar lateral feet collapse Psych Appearance: appropriate Debridement Note Debridement Note Post-Debridement Measurements and Additional Note: Post-Debridement Measurements/Treatment - Nurse 1 - General Ulcer Assessment Start: 05/19/21 11:10 Freq: Status: Active Protocol: SHANICE Activity Type Activity Date Activity User E-Sign Co-Sign Detail Recorded Client Recorded Date Recorded By Document 05/19/21 11:15 DL [id number] 05/19/21 11:32 DL 05/19/21 11:15 - Today's Visit Information Type of service Follow-up Visit (Physician/ACRYLIC FABRICATOR ) Arrival Mode Wheelchair Transfer Assistance None Patient Identification Verified (Name & Yes ) Patient Requires Transmission-Based No Precautions Finger Stick Blood Sugar(mg/dl) (if 196 indicated): Blood Sugar Stated by Patient Height and Weight Body Mass Index (BMI) 32.3 BMI Classification Obese Vital Signs Temperature (97.8 F-99.1 F) 98.2 F Temperature Source Temporal Pulse Rate (60-100) 97 Pulse Location Monitor Respiratory Rate (12-18) 20 H Respiratory rate source Observation Blood Pressure (90/60-120/80) 155/76 H Blood Pressure Mean (mm Hg) 102 Source Monitor History Since Last Visit- (Skip if this is Patient's initial visit) Have you changed medications since your No last visit? Any new allergies or adverse reactions No Had a fall/change in ADL's that may No increase risk of falls Signs or symptoms of abuse and/or No neglect since last visit Has dressing in place as prescribed Yes Has compression in place as prescribed Yes Has offloadiing in place as prescribed N/A Experienced any changes in pain level or No management Left Footwear Slipper Right Footwear Slipper Pain Scale: 0-10 Numeric Is Patient Pain Free? Yes WC - Nurse 1 - General Ulcer Measurement Start: 05/19/21 11:10 Freq: Status: Active Protocol: Activity Type Activity Date Activity User E-Sign Co-Sign Detail Recorded Client Recorded Date Recorded By Document 05/19/21 11:15 DL [id number] 05/19/21 11:32 DL 05/19/21 11:15 Wound Center Nurse 1 19-right inferior plantar -Current Size (cm) - Length 0 -Current Size (cm) - Width 0 -Current Size (cm) - Depth 0 -Total Square Cm 0 -Photo Taken Yes -Exudate Amt None Present -Granulation Amt Large (67-100%) -Granulation Quality Emily -Structure Exposed N/A -Texture (Natacha-wound Skin Appearance) Localized Edema -Moisture (Natacha-wound Skin Appearance) No Abnormality -Color (Natacha-wound Skin Appearance) No Abnormality -Temperature (Natacha-wound Skin No Abnormality Appearance) (Pt Warm) -Tenderness on Palpation (Natacha-wound No Skin Appearance) -Ulcer Cleansing Wound Cleanser -Foul Odor after Cleansing No #19 R Plantar Cluster -Current Size (cm) - Length 2.4 -Current Size (cm) - Width 3.5 -Current Size (cm) - Depth 0.3 -Total Square Cm 8.40 -Exudate Amt Medium -Exudate Type Serosanguineous -Wound Margin Thickened & Rolled Under -Granulation Amt Medium (34-66%) -Granulation Quality Emily -Necrosis Amt Medium (34-66%) -Necrotic Tissue Type Adherent Slough -Structure Exposed N/A -Texture (Natacha-wound Skin Appearance) Localized Edema ,Scarring -Moisture (Natacha-wound Skin Appearance) Maceration -Color (Natacha-wound Skin Appearance) No Abnormality -Temperature (Natacha-wound Skin No Abnormality Appearance) (Pt Warm) -Tenderness on Palpation (Natacha-wound No Skin Appearance) -Ulcer Cleansing Wound Cleanser -Foul Odor after Cleansing No -Anesthetic Used 4% Lidocaine Solution #18 R Lat foot -Current Size (cm) - Length 0.2 -Current Size (cm) - Width 0.3 -Current Size (cm) - Depth 0.6 -Total Square Cm 0.06 -Photo Taken No -Exudate Amt Small -Exudate Type Serosanguineous -Wound Margin Flat & Intact -Granulation Amt Small (1-33%) -Granulation Quality Emily -Necrosis Amt None Present (0 %) -Structure Exposed N/A -Texture (Natacha-wound Skin Appearance) Localized Edema ,Scarring -Moisture (Natacha-wound Skin Appearance) Maceration -Color (Natacha-wound Skin Appearance) No Abnormality -Temperature (Natacha-wound Skin No Abnormality Appearance) (Pt Warm) -Tenderness on Palpation (Natacha-wound No Skin Appearance) -Ulcer Cleansing Wound Cleanser -Foul Odor after Cleansing No -Anesthetic Used 4% Lidocaine Solution #16 L Plantar foot -Current Size (cm) - Length 2.1 -Current Size (cm) - Width 1 -Current Size (cm) - Depth 1.1 -Total Square Cm 2.1 -Photo Taken No -Exudate Amt Medium -Exudate Type Serosanguineous -Wound Margin Thickened -Granulation Amt Medium (34-66%) -Granulation Quality Red -Necrosis Amt Medium (34-66%) -Necrotic Tissue Type Eschar -Structure Exposed N/A -Texture (Natacha-wound Skin Appearance) Localized Edema ,Scarring -Moisture (Natacha-wound Skin Appearance) Maceration -Color (Natacha-wound Skin Appearance) No Abnormality -Temperature (Natacha-wound Skin No Abnormality Appearance) (Pt Warm) -Tenderness on Palpation (Natacha-wound No Skin Appearance) -Ulcer Cleansing Wound Cleanser -Foul Odor after Cleansing No -Anesthetic Used 4% Lidocaine Solution Right Calf (cm) 39.8 Right Ankle (cm) 24.5 Left Calf (cm) 40.3 Left Ankle (cm) 26 WC - Nurse 2 - General Ulcer CM Notes Start: 05/19/21 11:10 Freq: Status: Active Protocol: Activity Type Activity Date Activity User E-Sign Co-Sign Detail Recorded Client Recorded Date Recorded By Document 05/19/21 11:54 LISSY [id number] 05/19/21 12:04 LISSY 05/19/21 11:54 Wound Center Nurse 2 19-right inferior plantar -Time 11:54 -Correct Patient Yes -Correct Side, Site, Position Yes -Correct Procedure Yes -Procedure Performed Yes -Type of Procedure Debridement -Clinical Debridement Subcutaneous -Tissue Removed Subcutaneous -Post Debridement (cm) - Length 3.4 -Post Debridement (cm) - Width 2.2 -Post Debridement (cm) - Depth 1.1 -Total Square (Post) (cm) 7.48 -Area of Debridement (cm) - Length 3.4 -Area of Debridement (cm) - Width 2.2 -Total Square (Area) (cm) 7.48 -Tunneling No -Undermining/Tunneling No -Circular Undermining No -Wound/Ulcer Outcome Not Healed -Ulcer Cleansing Rinsed/ Irrigated with Saline -Foul Odor after Cleansing No -Bioengineered Tissue Yes -Type of Bioengineered Tissue Theraskin -Expiration Date 07/29/24 -Product Lot Number [id number] -Percent Used 100 -Lot number of Saline Used [id number] -Bleeding Controlled with Pressure -Offloading Yes -Type of Offloading Surgical Shoe -Treatment Response Procedure Tolerated Well -Debridement - Subq, 1st 20sq cm No -Apply Skin Sub - 1st 25 sq cm - Feet 1 -Theraskin (per sq cm) 13 #18 R Lat foot -Time 11:57 -Correct Patient Yes -Correct Side, Site, Position Yes -Correct Procedure Yes -Procedure Performed Yes -Type of Procedure Debridement -Clinical Debridement Subcutaneous -Tissue Removed Subcutaneous -Post Debridement (cm) - Length 0.5 -Post Debridement (cm) - Width 0.4 -Post Debridement (cm) - Depth 0.3 -Total Square (Post) (cm) 0.20 -Area of Debridement (cm) - Length 0.5 -Area of Debridement (cm) - Width 0.4 -Total Square (Area) (cm) 0.20 -Tunneling No -Undermining/Tunneling No -Circular Undermining No -Wound/Ulcer Outcome Not Healed -Ulcer Cleansing Rinsed/ Irrigated with Saline -Foul Odor after Cleansing No -Bioengineered Tissue Yes -Type of Bioengineered Tissue Theraskin -Expiration Date 07/29/24 -Product Lot Number [id number] -Percent Used 100 -Lot number of Saline Used [id number] -Bleeding Controlled with Pressure -Offloading Yes -Type of Offloading Surgical Shoe -Treatment Response Procedure Tolerated Well -Debridement - Subq, 1st 20sq cm No -Apply Skin Sub - each addt'l 25 sq cm 0 - Feet -Theraskin (per sq cm) 0 #16 L Plantar foot -Time 11:58 -Correct Patient Yes -Correct Side, Site, Position Yes -Correct Procedure Yes -Procedure Performed Yes -Type of Procedure Debridement -Clinical Debridement Subcutaneous -Tissue Removed Subcutaneous -Post Debridement (cm) - Length 2.4 -Post Debridement (cm) - Width 1.7 -Post Debridement (cm) - Depth 0.9 -Total Square (Post) (cm) 4.08 -Area of Debridement (cm) - Length 2.4 -Area of Debridement (cm) - Width 1.7 -Total Square (Area) (cm) 4.08 -Tunneling No -Undermining/Tunneling No -Circular Undermining No -Wound/Ulcer Outcome Not Healed -Ulcer Cleansing Rinsed/ Irrigated with Saline -Foul Odor after Cleansing No -Bioengineered Tissue Yes -Type of Bioengineered Tissue Theraskin -Expiration Date 07/29/24 -Product Lot Number [id number] -Percent Used 100 -Lot number of Saline Used [id number] -Bleeding Controlled with Pressure -Offloading Yes -Type of Offloading Surgical Shoe -Treatment Response Procedure Tolerated Well -Debridement - Subq, 1st 20sq cm Yes -Apply Skin Sub - 1st 25 sq cm - Feet 0 -Theraskin (per sq cm) 0 Pain Scale: 0-10 Numeric Is Patient Pain Free? Yes WC - Nurse 3 - General Ulcer D/C NN Start: 05/19/21 11:10 Freq: Status: Active Protocol: Activity Type Activity Date Activity User E-Sign Co-Sign Detail Recorded Client Recorded Date Recorded By Document 05/19/21 12:20 DL [id number] 05/19/21 12:22 DL 05/19/21 12:20 Wound Care Nurse 3 19-right inferior plantar -Foul Odor after Cleansing No -Other Dressing Theraskin -Primary Dressing Covered/Secured with Dry Gauze & Roll Gauze, Secured with Tape #18 R Lat foot -Foul Odor after Cleansing No -Other Dressing Theraskin -Primary Dressing Covered/Secured with Dry Gauze & Roll Gauze, Secured with Tape #16 L Plantar foot -Foul Odor after Cleansing No -Other Dressing Theraskin -Primary Dressing Covered/Secured with Dry Gauze & Roll Gauze, Secured with Tape Left -Tubular Bandage Double Layer -Size of Tubigrip Used Size F -Size F ($) 2 Right -Tubular Bandage Double Layer -Size of Tubigrip Used Size F -Size F ($) 2 Treatment Response Procedure Tolerated Well Pain Scale: 0-10 Numeric Is Patient Pain Free? Yes WC - Visit Discharge Discharge Condition Stable Ambulatory Status Wheelchair Transportation Private [facility] Facility Type Home Health Orders Sent Yes Wound debrided: Plantar foot Laterality: Left Wound Grade/Stage: Freedman 1 Type of Debridement: Excisional debridement Anesthesia Used: 4% Lidocaine Solution Depth: in the subcutaneous layer Percentage of wound debrided: 100 Instrument Used: 3mm curette, #15 blade and Forceps Tissue Removed: includes fibrous, devitalized, biofilm, callus and slough tissue Severity: Fat Layer Exposed Amount of bleeding with debridement: Mild Bleeding Controlled with: Pressure Patient tolerated procedure: Patient tolerated procedure well Additional Wound Wound debrided: Plantar and lateral foot Laterality: Right Wound Grade/Stage: Freedman 1 Type of Debridement: Excisional debridement Anesthesia Used: 4% Lidocaine Solution Depth: in the subcutaneous layer Percentage of wound debrided: 100 Instrument Used: 3mm curette, #15 blade and Forceps Tissue Removed: Includes fibrous, devitalized, biofilm, callus and slough tissue Severity: Fat Layer Exposed Amount of bleeding with debridement: Mild Bleeding Controlled with: Pressure Patient tolerated procedure: Patient tolerated procedure well Assessment/Plan Assessment/Plan (1) Non-pressure chronic 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 layer exposed: CODE(S): L97.512 - Non-pressure chronic 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 layer exposed (2) Type 2 diabetes mellitus with diabetic polyneuropathy: CODE(S): E11.42 - Type 2 diabetes mellitus with diabetic polyneuropathy QUALIFIERS: Diabetes mellitus vermin exterminator insulin use: with fdc use Qualified Code(s): E11.42 - Type 2 diabetes mellitus with diabetic polyneuropathy; Z79.4 - correction (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 Overall worsening of wounds noted since patient has left facility and has gone home. There is new significant edema noted to bilateral lower extremities. Patient relates that she is also having foot pain likely from the amount of swelling. She relates that since being home she has not been able to stay off her feet 100% as she thought she would be able to. Discussed with the patient at length potential etiology and treatment options as regards to the recent increase in swelling to bilateral lower extremities. Patient is noted to have kidney problems. Discussed with the patient need to talk with PCP for potential medication intervention. Discussed elevation and compression therapy. Discussed limiting salt intake. Patient noted to have recent blood work done at SNF facility prior to discharge. Discussed getting that information from them to get to her PCP in order to better assess her health status. Discussed with the swelling can impact wound healing as well as contributing to some of the pain that she is feeling ulcerations were debrided after verbal consent was obtained by the patient. The right plantar foot ulceration was approved for TheraSkin graft application. I recommend application of advanced wound healing product to the indicated ulceration. Prior authorization was confirmed. The indications, benefits, anticipated application and healing time management were reviewed in detail. Verbal consent was obtained in the procedure for today. Site was debrided and graft was applied according to standard protocol and was further secured with a nonadherent dressing and Steri-Strips. Patient instructed that they can change outer dressing but not to go beneath the Steri-Strips. Ulceration sites are covered with dry sterile dressing. She is reassured no signs of infection are noted today. Patient is to remain strict nonweightbearing to the right foot. Patient can transfer by putting weight through her toe or heel on the left foot. It is noted she is already been undergoing a comprehensive wound healing plan and has delayed and nonhealing. She has had prior bone biopsies, wound culture, and intervention with infectious disease. She has suspected adequate vascular perfusion for healing per her recent noninvasive vascular studies 09/01/2020 with triphasic waveforms noted. Patient's hemoglobin A1c was 13.1% on 12/29/2020. Offloading strongly recommended. Optimal blood sugar control and increased protein intake also discussed. Being forced to stay off her feet at the SNF has allowed the most improvement noted in these wounds in a long time. Since being home wounds have noted to have worsening likely due to her being more active on her feet along with her not getting the nutritional support she needs at home to control her blood sugar and optimize her for healing. All questions were answered and she was advised to call with any further questions or concerns. All signs and symptoms of local and systemic infection were discussed with the patient today. Follow up in 1 week. This note was generated with [employer] dictation software. It may contain incorrect words, spelling, and punctuation that were not noted in checking the note before signing. The problems addressed require a low medical decision making level which includes two or more minor problems, a stable chronic illness, or an acute uncomplicated illness or injury.
[2021-05-26 08:31] VITALS: BP 123/66; PULSE 96; TEMP 36.1; BMI 32.3
--- NOTE | 2021-05-26 09:14 | PN.PCM_ITS ---
History of Present Illness Date of Service: 05/26/21 Chief Complaint: right foot ulcer left foot ulcer History of Wound: Patient is a 55-year-old female who presents to the clinic for bilateral foot ulcers. She resides in a nursing home facility and reports she wants to go home after most recent hospital visit. Patient has been dealing with wounds to bilateral lower extremities for years. Patient has noted noncompliance [place] care. Patient has significant delayed healing and foot deformities contributing to these ulcerations. Patient was recently at the hospital for gastroenteritis 03/03/21. Patient also noted that time to have worsening right foot with acute Charcot foot noted on x- ray and MRI. Patient was also noted to have multiple new blisters formed during hospital stay with wounds that remain. It was determined during hospital visit the patient was not stable not to go to the operating room. Bedside debridements and cultures were obtained. Patient was started on Levaquin per infectious disease. Patient is to continue wound care and has since followed up with the wound care center. Right foot wound culture from 03/06/2021 with significant for bacterial growth of staph aureus and strep group C. Left foot wound did not appear clinically infected but was polymicrobial upon culture on 03/05/2021. MRI obtained of the right foot was negative for osteomyelitis but showed small focal abscess to lateral plantar foot. Patient is no longer at the SNF facility and has had regression of wound since returning home Progress of Wound: Unchanged Subjective Subjective Patient seen and examined resting comfortably. Patient denies any new pedal complaints. Patient denies any nausea, fever, chills, chest pain, shortness of breath, cough, streaking, purulence, vomiting. Patient relates that she has been trying to stay off it is much as possible Objective Data Objective Data Vital Signs: Vital Signs Temp Pulse Resp BP 97.0 F L 96 20 H 123/66 H 05/26/21 08:31 05/26/21 08:31 05/19/21 11:15 05/26/21 08:31 Weight: 91.138 kg Body Mass Index (BMI) 32.3 Physical Exam Narrative Const alert General Appearance: cooperative, sleepy Extremity normal capillary refill and no calf tenderness General Extremity: no tenderness to palpation of joints or extremities and other findings Other Details: Capillary refill time less than 3 seconds noted to digits ; Negative for clubbing or cyanosis Skin General Skin Exam: atrophy and dry skin; Negative for ecchymosis, erythema, eschar, pallor or dermatitis Rashes: no rashes Wound Narrative: plantar left foot ulceration. Granular base. Mild maceration noted. Mild periwound callus tissue noted. There is no erythema or edema or malodor or purulence or other suggestion signs of infection. Serous drainage noted. There is some mild hyper granulation tissue at 3:00 positioning Plantar right foot ulceration is stable. Granular base. Mild maceration noted. No periwound callus tissue noted. There is no erythema or edema or malodor or purulence or other suggestion signs of infection. Serosanguineous drainage noted. There is some tunneling noted at 10:00 toward the lateral foot wound Right lateral foot wound has reopened. Granular base. Mild maceration noted. Mild periwound callus tissue and maceration noted. There is no erythema or edema or malodor or purulence or other suggestion signs of infection. Serosanguineous drainage noted Amputations noted to bilateral fifth rays. Charcot foot deformity noted bilaterally. Continued bilateral lower extremity edema noted. No calf tenderness negative Jaswinder and Nuñez sign. DP and PT are diminished bilaterally Neuromuscular Sensory Exam: extremities light-touch: decreased Motor Exam: strength abnormal other (4/5 to all pedal muscle groups) There is foot and Charcot deformities noted to bilateral feet with prominent plantar lateral feet collapse Psych Appearance: appropriate Debridement Note Debridement Note Post-Debridement Measurements and Additional Note: Post-Debridement Measurements/Treatment - Nurse 1 - General Ulcer Assessment Start: 05/19/21 11:10 Freq: Status: Active Protocol: TENNILLE.LOWEXT Activity Type Activity Date Activity User E-Sign Co-Sign Detail Recorded Client Recorded Date Recorded By Document 05/19/21 11:15 DL [id number] 05/19/21 11:32 DL Document 05/26/21 08:31 KR [id number] 05/26/21 08:37 KR 05/19/21 05/26/21 11:15 08:31 - Today's Visit Information Type of service Follow-up Visit Follow-up Visit (Physician/BIODIESEL PRODUCTION TECHNICIAN (Physician/BIODIESEL PRODUCTION TECHNICIAN ) ) Arrival Mode Wheelchair Wheelchair Transfer Assistance None Patient Identification Verified (Name & Yes Yes ) Patient Requires Transmission-Based No Precautions Finger Stick Blood Sugar(mg/dl) (if 196 indicated): Blood Sugar Stated by Patient Height and Weight Body Mass Index (BMI) 32.3 32.3 BMI Classification Obese Obese Vital Signs Temperature (97.8 F-99.1 F) 98.2 F 97.0 F L Temperature Source Temporal Temporal Pulse Rate (60-100) 97 96 Pulse Location Monitor Monitor Respiratory Rate (12-18) 20 H Respiratory rate source Observation Blood Pressure (90/60-120/80) 155/76 H 123/66 H Blood Pressure Mean (mm Hg) 102 85 Source Monitor Monitor Position Semi-Fowlers Blood Pressure Location Right Arm History Since Last Visit- (Skip if this is Patient's initial visit) Have you changed medications since your No No last visit? Any new allergies or adverse reactions No No Had a fall/change in ADL's that may No No increase risk of falls Signs or symptoms of abuse and/or No No neglect since last visit Have you been in the hospital since your No last visit? Has dressing in place as prescribed Yes Yes Has compression in place as prescribed Yes N/A Has offloadiing in place as prescribed N/A N/A Experienced any changes in pain level or No No management Left Footwear Slipper Regular Shoe Right Footwear Slipper Regular Shoe Pain Scale: 0-10 Numeric Is Patient Pain Free? Yes Yes WC - Nurse 1 - General Ulcer Measurement Start: 05/19/21 11:10 Freq: Status: Active Protocol: Activity Type Activity Date Activity User E-Sign Co-Sign Detail Recorded Client Recorded Date Recorded By Document 05/19/21 11:15 DL [id number] 05/19/21 11:32 DL Document 05/26/21 08:31 KR [id number] 05/26/21 08:37 KR 05/19/21 05/26/21 11:15 08:31 Wound Center Nurse 1 19-right inferior plantar -Current Size (cm) - Length 0 3 -Current Size (cm) - Width 0 2.8 -Current Size (cm) - Depth 0 0.6 -Total Square Cm 0 8.4 -Photo Taken Yes -Tunneling Position (O'clock) 10 -Tunneling Distance (cm) 1.4 -Undermining/Tunneling Starts (O'clock 11 ) -Undermining/Tunneling Ends (O'clock) 1 -Maximum Distance (cm) 0.6 -Exudate Amt None Present Medium -Exudate Type Serosanguineous -Wound Margin Distinct, Outline Attached -Granulation Amt Large (67-100%) Large (67-100%) -Granulation Quality [place] Red -Necrosis Amt None Present (0 %) -Structure Exposed N/A -Texture (Natacha-wound Skin Appearance) Localized Edema Assessed, Scarring -Moisture (Natacha-wound Skin Appearance) No Abnormality No Abnormality, Assessed -Color (Natacha-wound Skin Appearance) No Abnormality No Abnormality, Assessed -Temperature (Natacha-wound Skin No Abnormality No Abnormality Appearance) (Pt Warm) (Pt Warm) -Tenderness on Palpation (Natacha-wound No No Skin Appearance) -Ulcer Cleansing Wound Cleanser soap and water -Foul Odor after Cleansing No -Anesthetic Used 4% Lidocaine Solution #19 R Plantar Cluster -Current Size (cm) - Length 2.4 -Current Size (cm) - Width 3.5 -Current Size (cm) - Depth 0.3 -Total Square Cm 8.40 -Exudate Amt Medium -Exudate Type Serosanguineous -Wound Margin Thickened & Rolled Under -Granulation Amt Medium (34-66%) -Granulation Quality [place] -Necrosis Amt Medium (34-66%) -Necrotic Tissue Type Adherent Slough -Structure Exposed N/A -Texture (Natacha-wound Skin Appearance) Localized Edema ,Scarring -Moisture (Natacha-wound Skin Appearance) Maceration -Color (Natacha-wound Skin Appearance) No Abnormality -Temperature (Natacha-wound Skin No Abnormality Appearance) (Pt Warm) -Tenderness on Palpation (Natacha-wound No Skin Appearance) -Ulcer Cleansing Wound Cleanser -Foul Odor after Cleansing No -Anesthetic Used 4% Lidocaine Solution #18 R Lat foot -Current Size (cm) - Length 0.2 0.1 -Current Size (cm) - Width 0.3 0.1 -Current Size (cm) - Depth 0.6 0.1 -Total Square Cm 0.06 0.01 -Photo Taken No -Exudate Amt Small None Present -Exudate Type Serosanguineous -Wound Margin Flat & Intact Distinct, Outline Attached -Granulation Amt Small (1-33%) Small (1-33%) -Granulation Quality [place] Red -Necrosis Amt None Present (0 None Present (0 %) %) -Structure Exposed N/A -Texture (Natacha-wound Skin Appearance) Localized Edema Assessed, ,Scarring Scarring -Moisture (Natacha-wound Skin Appearance) Maceration No Abnormality, Assessed -Color (Natacha-wound Skin Appearance) No Abnormality No Abnormality, Assessed -Temperature (Natacha-wound Skin No Abnormality No Abnormality Appearance) (Pt Warm) (Pt Warm) -Tenderness on Palpation (Natacha-wound No No Skin Appearance) -Ulcer Cleansing Wound Cleanser soap and water -Foul Odor after Cleansing No No -Anesthetic Used 4% Lidocaine 4% Lidocaine Solution Solution #16 L Plantar foot -Current Size (cm) - Length 2.1 2.1 -Current Size (cm) - Width 1 1.7 -Current Size (cm) - Depth 1.1 0.7 -Total Square Cm 2.1 3.57 -Photo Taken No -Exudate Amt Medium Medium -Exudate Type Serosanguineous Serosanguineous -Wound Margin Thickened Distinct, Outline Attached -Granulation Amt Medium (34-66%) Large (67-100%) -Granulation Quality Red Red -Necrosis Amt Medium (34-66%) None Present (0 %) -Necrotic Tissue Type Eschar -Structure Exposed N/A -Texture (Natacha-wound Skin Appearance) Localized Edema Assessed, ,Scarring Scarring -Moisture (Natacha-wound Skin Appearance) Maceration No Abnormality, Assessed -Color (Natacha-wound Skin Appearance) No Abnormality No Abnormality, Assessed -Temperature (Natacha-wound Skin No Abnormality No Abnormality Appearance) (Pt Warm) (Pt Warm) -Tenderness on Palpation (Natacha-wound No No Skin Appearance) -Ulcer Cleansing Wound Cleanser soap and water -Foul Odor after Cleansing No No -Anesthetic Used 4% Lidocaine 4% Lidocaine Solution Solution Right Calf (cm) 39.8 42 Right Ankle (cm) 24.5 25 Left Calf (cm) 40.3 49 Left Ankle (cm) 26 25.9 - Nurse 2 - General Ulcer CM Notes Start: 05/19/21 11:10 Freq: Status: Active Protocol: Activity Type Activity Date Activity User E-Sign Co-Sign Detail Recorded Client Recorded Date Recorded By Document 05/19/21 11:54 LISSY [id number] 05/19/21 12:04 JF Document 05/26/21 08:46 JF [id number] 05/26/21 09:01 05/19/21 05/26/21 11:54 08:46 Wound Center Nurse 2 19-right inferior plantar -Time 11:54 08:47 -Correct Patient Yes Yes -Correct Side, Site, Position Yes Yes -Correct Procedure Yes Yes -Procedure Performed Yes Yes -Type of Procedure Debridement Debridement -Clinical Debridement Subcutaneous Subcutaneous -Tissue Removed Subcutaneous Subcutaneous -Post Debridement (cm) - Length 3.4 3 -Post Debridement (cm) - Width 2.2 2.1 -Post Debridement (cm) - Depth 1.1 0.4 -Total Square (Post) (cm) 7.48 6.3 -Area of Debridement (cm) - Length 3.4 3 -Area of Debridement (cm) - Width 2.2 2.1 -Total Square (Area) (cm) 7.48 6.3 -Tunneling No No -Undermining/Tunneling No No -Circular Undermining No No -Wound/Ulcer Outcome Not Healed Not Healed -Ulcer Cleansing Rinsed/ Rinsed/ Irrigated with Irrigated with Saline Saline -Foul Odor after Cleansing No No -Bioengineered Tissue Yes Yes -Type of Bioengineered Tissue Theraskin Theraskin -Expiration Date 07/29/24 11/22/24 -Product Lot Number [id number] -Percent Used 100 100 -Lot number of Saline Used [id number] -Bleeding Controlled with Pressure Pressure -Offloading Yes Yes -Type of Offloading Surgical Shoe Surgical Shoe -Treatment Response Procedure Procedure Tolerated Well Tolerated Well -Debridement - Subq, 1st 20sq cm No No -Apply Skin Sub - 1st 25 sq cm - Feet 1 1 -Theraskin (per sq cm) 13 6 #18 R Lat foot -Time 11:57 08:49 -Correct Patient Yes Yes -Correct Side, Site, Position Yes Yes -Correct Procedure Yes Yes -Procedure Performed Yes Yes -Type of Procedure Debridement Debridement -Clinical Debridement Subcutaneous Subcutaneous -Tissue Removed Subcutaneous Subcutaneous -Post Debridement (cm) - Length 0.5 0.3 -Post Debridement (cm) - Width 0.4 0.2 -Post Debridement (cm) - Depth 0.3 0.1 -Total Square (Post) (cm) 0.20 0.06 -Area of Debridement (cm) - Length 0.5 0.3 -Area of Debridement (cm) - Width 0.4 0.2 -Total Square (Area) (cm) 0.20 0.06 -Tunneling No No -Undermining/Tunneling No No -Circular Undermining No No -Wound/Ulcer Outcome Not Healed Not Healed -Ulcer Cleansing Rinsed/ Rinsed/ Irrigated with Irrigated with Saline Saline -Foul Odor after Cleansing No No -Bioengineered Tissue Yes No -Type of Bioengineered Tissue Theraskin -Expiration Date 07/29/24 -Product Lot Number [id number] -Percent Used 100 -Lot number of Saline Used [id number] -Bleeding Controlled with Pressure Pressure -Offloading Yes No -Type of Offloading Surgical Shoe -Treatment Response Procedure Procedure Tolerated Well Tolerated Well -Debridement - Subq, 1st 20sq cm No No -Apply Skin Sub - each addt'l 25 sq cm 0 - Feet -Theraskin (per sq cm) 0 #16 L Plantar foot -Time 11:58 08:49 -Correct Patient Yes Yes -Correct Side, Site, Position Yes Yes -Correct Procedure Yes Yes -Procedure Performed Yes Yes -Type of Procedure Debridement Debridement -Clinical Debridement Subcutaneous Subcutaneous -Tissue Removed Subcutaneous Subcutaneous -Post Debridement (cm) - Length 2.4 2.5 -Post Debridement (cm) - Width 1.7 1.8 -Post Debridement (cm) - Depth 0.9 0.9 -Total Square (Post) (cm) 4.08 4.50 -Area of Debridement (cm) - Length 2.4 2.5 -Area of Debridement (cm) - Width 1.7 1.8 -Total Square (Area) (cm) 4.08 4.50 -Tunneling No No -Undermining/Tunneling No No -Circular Undermining No No -Wound/Ulcer Outcome Not Healed Not Healed -Ulcer Cleansing Rinsed/ Rinsed/ Irrigated with Irrigated with Saline Saline -Foul Odor after Cleansing No No -Bioengineered Tissue Yes No -Type of Bioengineered Tissue Theraskin -Expiration Date 07/29/24 -Product Lot Number [id number] -Percent Used 100 -Lot number of Saline Used [id number] -Bleeding Controlled with Pressure Pressure -Offloading Yes Yes -Type of Offloading Surgical Shoe Surgical Shoe -Treatment Response Procedure Procedure Tolerated Well Tolerated Well -Debridement - Subq, 1st 20sq cm Yes Yes -Apply Skin Sub - 1st 25 sq cm - Feet 0 -Theraskin (per sq cm) 0 Pain Scale: 0-10 Numeric Is Patient Pain Free? Yes Yes WC - Nurse 3 - General Ulcer D/C NN Start: 05/19/21 11:10 Freq: Status: Active Protocol: Activity Type Activity Date Activity User E-Sign Co-Sign Detail Recorded Client Recorded Date Recorded By Document 05/19/21 12:20 DL [id number] 05/19/21 12:22 DL 05/19/21 12:20 Wound Care Nurse 3 19-right inferior plantar -Foul Odor after Cleansing No -Other Dressing Theraskin -Primary Dressing Covered/Secured with Dry Gauze & Roll Gauze, Secured with Tape #18 R Lat foot -Foul Odor after Cleansing No -Other Dressing Theraskin -Primary Dressing Covered/Secured with Dry Gauze & Roll Gauze, Secured with Tape #16 L Plantar foot -Foul Odor after Cleansing No -Other Dressing Theraskin -Primary Dressing Covered/Secured with Dry Gauze & Roll Gauze, Secured with Tape Left -Tubular Bandage Double Layer -Size of Tubigrip Used Size F -Size F ($) 2 Right -Tubular Bandage Double Layer -Size of Tubigrip Used Size F -Size F ($) 2 Treatment Response Procedure Tolerated Well Pain Scale: 0-10 Numeric Is Patient Pain Free? Yes WC - Visit Discharge Discharge Condition Stable Ambulatory Status Wheelchair Transportation Private Auto Facility Type Home Health Orders Sent Yes Wound debrided: Lateral and plantar foot Laterality: Right Wound Grade/Stage: Freed[place] 1 Type of Debridement: Excisional debridement Anesthesia Used: 4% Lidocaine Solution Depth: in the subcutaneous layer Percentage of wound debrided: 100 Instrument Used: 3mm curette Tissue Removed: includes fibrous, devitalized, biofilm, callus and slough tissue Severity: Fat Layer Exposed Amount of bleeding with debridement: Mild Bleeding Controlled with: Pressure Patient tolerated procedure: Patient tolerated procedure well Additional Wound Wound debrided: Plantar foot Laterality: Left Wound Grade/Stage: Freed[place] 1 Type of Debridement: Excisional debridement Anesthesia Used: 4% Lidocaine Solution Depth: in the subcutaneous layer Percentage of wound debrided: 100 Instrument Used: 3mm curette Tissue Removed: Includes fibrous, devitalized, biofilm, callus and slough tissue Severity: Fat Layer Exposed Amount of bleeding with debridement: Mild Bleeding Controlled with: Pressure Patient tolerated procedure: Patient tolerated procedure well Assessment/Plan Assessment/Plan (1) Non-pressure chronic 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 layer exposed: CODE(S): L97.512 - Non-pressure chronic 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 layer exposed (2) Type 2 diabetes mellitus with diabetic polyneuropathy: CODE(S): E11.42 - Type 2 diabetes mellitus with diabetic polyneuropathy QUALIFIERS: Diabetes mellitus group home insulin use: with terminal block assembler use Qualified Code(s): E11.42 - Type 2 diabetes mellitus with diabetic polyneuropathy; Z79.4 - terminal block assembler (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 Patient relates that the TheraSkin graft came off Tuesday. She has history of the graft coming off prior to next visit. Patient has many excuses as to why she is not improving but does not seem to take personal responsibility for this. She relates that since being home she has not been able to stay off her feet 100% as she thought she would be able to. ulcerations were debrided after verbal consent was obtained by the patient. The right plantar foot ulceration was approved for TheraSkin graft application. I recommend application of advanced wound healing product to the indicated ulceration. Prior authorization was confirmed. The indications, benefits, anticipated application and healing time management were reviewed in detail. Verbal consent was obtained in the procedure for today. Site was debrided and graft was applied according to standard protocol and was further secured with a nonadherent dressing and Steri-Strips. Patient instructed that they can change outer dressing but not to go beneath the Steri-Strips. To wash left foot prior to dressing changes. Left plantar foot and right lateral foot ulceration covered with fibracol covered with dry sterile dressing. This is to be changed daily to every other day. She is reassured no signs of infection are noted today. Patient is to remain strict nonweightbearing to the right foot. Patient can transfer by putting weight through her toe or heel on the left foot. It is noted she is already been undergoing a comprehensive wound healing plan and has delayed and nonhealing. She has had prior bone biopsies, wound culture, and intervention with infectious disease. She has suspected adequate vascular perfusion for healing per her recent noninvasive vascular studies 09/01/2020 with triphasic waveforms noted. Patient's hemoglobin A1c was 13.1% on 12/29/2020. Offloading strongly recommended. Optimal blood sugar control and increased protein intake also discussed. Being forced to stay off her feet at the SNF has allowed the most improvement noted in these wounds in a long time. Since being home wounds have noted to have worsening likely due to her being more active on her feet along with her not getting the nutritional support she needs at home to control her blood sugar and optimize her for healing. All questions were answered and she was advised to call with any further questions or concerns. All signs and symptoms of local and systemic infection were discussed with the patient today. Follow up in 1 week. This note was generated with [employer] dictation software. It may contain in correct words, spelling, and punctuation that were not noted in checking the note before signing.
[2021-06-02 09:43] VITALS: BP 162/87; PULSE 82; TEMP 33.4; BMI 32.3
--- NOTE | 2021-06-02 09:45 | PCM.WC.PN ---
History of Present Illness Date of Service: 06/02/21 Chief Complaint: right foot ulcer left foot ulcer History of Wound: Patient is a 55-year-old female who presents to the clinic for bilateral foot ulcers. She resides in a long term facility and reports she wants to go home after most recent hospital visit. Patient has been dealing with wounds to bilateral lower extremities for years. Patient has noted noncompliance [place] care. Patient has significant delayed healing and foot deformities contributing to these ulcerations. Patient was recently at the hospital for gastroenteritis 03/03/21. Patient also noted that time to have worsening right foot with acute Charcot foot noted on x-ray and MRI. Patient was also noted to have multiple new blisters formed during hospital stay with wounds that remain. It was determined during hospital visit the patient was not stable not to go to the operating room. Bedside debridements and cultures were obtained. Patient was started on Levaquin per infectious disease. Patient is to continue wound care and has since followed up with the wound care center. Right foot wound culture from 03/06/2021 with significant for bacterial growth of staph aureus and strep group C. Left foot wound did not appear clinically infected but was polymicrobial upon culture on 03/05/2021. MRI obtained of the right foot was negative for osteomyelitis but showed small focal abscess to lateral plantar foot. Patient is no longer at the SNF facility and has had regression of wound since returning home Progress of Wound: Unchanged Subjective Subjective Patient seen and examined resting comfortably. Patient denies any new pedal complaints. Patient denies any nausea, fever, chills, chest pain, shortness of breath, cough, streaking, purulence, vomiting. Patient relates that the Steri-Strips fell off again this week on their own. Home health care reported to us that she had removed them. Objective Data Objective Data Vital Signs: Vital Signs Temp Pulse Resp BP 97.0 F L 96 20 H 123/66 H 05/26/21 08:31 05/26/21 08:31 05/19/21 11:15 05/26/21 08:31 Weight: 91.138 kg Body Mass Index (BMI) 32.3 Physical Exam Narrative Const alert General Appearance: cooperative, sleepy Extremity normal capillary refill and no calf tenderness General Extremity: no tenderness to palpation of joints or extremities and other findings Other Details: Capillary refill time less than 3 seconds noted to digits ; Negative for clubbing or cyanosis Skin General Skin Exam: atrophy and dry skin; Negative for ecchymosis, erythema, eschar, pallor or dermatitis Rashes: no rashes Wound Narrative: plantar left foot ulceration. Granular base. Mild maceration noted. Mild periwound callus tissue noted. There is no erythema or edema or malodor or purulence or other suggestion signs of infection. Serous drainage noted. There is some mild hyper granulation tissue at 3:00 positioning Plantar right foot ulceration is stable. Granular base. Mild maceration noted. No periwound callus tissue noted. There is no erythema or edema or malodor or purulence or other suggestion signs of infection. Serosanguineous drainage noted. There is some tunneling noted at 10:00 communicating with the lateral foot wound Right lateral foot wound. Granular base. Mild maceration noted. Mild periwound callus tissue and maceration noted. There is no erythema or edema or malodor or purulence or other suggestion signs of infection. Serosanguineous drainage noted Amputations noted to bilateral fifth rays. Charcot foot deformity noted bilaterally. Continued bilateral lower extremity edema noted. No calf tenderness negative Jaswinder and Nuñez sign. DP and PT are diminished bilaterally Neuromuscular Sensory Exam: extremities light-touch: decreased Motor Exam: strength abnormal other (4/5 to all pedal muscle groups) There is foot and Charcot deformities noted to bilateral feet with prominent plantar lateral feet collapse Psych Appearance: appropriate Debridement Note Debridement Note Post-Debridement Measurements and Additional Note: Post-Debridement Measurements/Treatment - Nurse 1 - General Ulcer Assessment Start: 05/19/21 11:10 Freq: Status: Active Protocol: TENNILLE.LOWEXT Activity Type Activity Date Activity User E-Sign Co-Sign Detail Recorded Client Recorded Date Recorded By Document 05/19/21 11:15 DL [id number] 05/19/21 11:32 DL Document 05/26/21 08:31 KR [id number] 05/26/21 08:37 KR 05/19/21 05/26/21 11:15 08:31 - Today's Visit Information Type of service Follow-up Visit Follow-up Visit (Physician/PLASTICS PROCESS HAND (Physician/PLASTICS PROCESS HAND ) ) Arrival Mode Wheelchair Wheelchair Transfer Assistance None Patient Identification Verified (Name & Yes Yes ) Patient Requires Transmission-Based No Precautions Finger Stick Blood Sugar(mg/dl) (if 196 indicated): Blood Sugar Stated by Patient Height and Weight Body Mass Index (BMI) 32.3 32.3 BMI Classification Obese Obese Vital Signs Temperature (97.8 F-99.1 F) 98.2 F 97.0 F L Temperature Source Temporal Temporal Pulse Rate (60-100) 97 96 Pulse Location Monitor Monitor Respiratory Rate (12-18) 20 H Respiratory rate source Observation Blood Pressure (90/60-120/80) 155/76 H 123/66 H Blood Pressure Mean (mm Hg) 102 85 Source Monitor Monitor Position Semi-Fowlers Blood Pressure Location Right Arm History Since Last Visit- (Skip if this is Patient's initial visit) Have you changed medications since your No No last visit? Any new allergies or adverse reactions No No Had a fall/change in ADL's that may No No increase risk of falls Signs or symptoms of abuse and/or No No neglect since last visit Have you been in the hospital since your No last visit? Has dressing in place as prescribed Yes Yes Has compression in place as prescribed Yes N/A Has offloadiing in place as prescribed N/A N/A Experienced any changes in pain level or No No management Left Footwear Slipper Regular Shoe Right Footwear Slipper Regular Shoe Pain Scale: 0-10 Numeric Is Patient Pain Free? Yes Yes WC - Nurse 1 - General Ulcer Measurement Start: 05/19/21 11:10 Freq: Status: Active Protocol: Activity Type Activity Date Activity User E-Sign Co-Sign Detail Recorded Client Recorded Date Recorded By Document 05/19/21 11:15 DL [id number] 05/19/21 11:32 DL Document 05/26/21 08:31 KR [id number] 05/26/21 08:37 KR 05/19/21 05/26/21 11:15 08:31 Wound Center Nurse 1 19-right inferior plantar -Current Size (cm) - Length 0 3 -Current Size (cm) - Width 0 2.8 -Current Size (cm) - Depth 0 0.6 -Total Square Cm 0 8.4 -Photo Taken Yes -Tunneling Position (O'clock) 10 -Tunneling Distance (cm) 1.4 -Undermining/Tunneling Starts (O'clock 11 ) -Undermining/Tunneling Ends (O'clock) 1 -Maximum Distance (cm) 0.6 -Exudate Amt None Present Medium -Exudate Type Serosanguineous -Wound Margin Distinct, Outline Attached -Granulation Amt Large (67-100%) Large (67-100%) -Granulation Quality [place] Red -Necrosis Amt None Present (0 %) -Structure Exposed N/A -Texture (Natacha-wound Skin Appearance) Localized Edema Assessed, Scarring -Moisture (Natacha-wound Skin Appearance) No Abnormality No Abnormality, Assessed -Color (Natacha-wound Skin Appearance) No Abnormality No Abnormality, Assessed -Temperature (Natacha-wound Skin No Abnormality No Abnormality Appearance) (Pt Warm) (Pt Warm) -Tenderness on Palpation (Natacha-wound No No Skin Appearance) -Ulcer Cleansing Wound Cleanser soap and water -Foul Odor after Cleansing No -Anesthetic Used 4% Lidocaine Solution #19 R Plantar Cluster -Current Size (cm) - Length 2.4 -Current Size (cm) - Width 3.5 -Current Size (cm) - Depth 0.3 -Total Square Cm 8.40 -Exudate Amt Medium -Exudate Type Serosanguineous -Wound Margin Thickened & Rolled Under -Granulation Amt Medium (34-66%) -Granulation Quality [place] -Necrosis Amt Medium (34-66%) -Necrotic Tissue Type Adherent Slough -Structure Exposed N/A -Texture (Natacha-wound Skin Appearance) Localized Edema ,Scarring -Moisture (Natacha-wound Skin Appearance) Maceration -Color (Natacha-wound Skin Appearance) No Abnormality -Temperature (Natacha-wound Skin No Abnormality Appearance) (Pt Warm) -Tenderness on Palpation (Natacha-wound No Skin Appearance) -Ulcer Cleansing Wound Cleanser -Foul Odor after Cleansing No -Anesthetic Used 4% Lidocaine Solution #18 R Lat foot -Current Size (cm) - Length 0.2 0.1 -Current Size (cm) - Width 0.3 0.1 -Current Size (cm) - Depth 0.6 0.1 -Total Square Cm 0.06 0.01 -Photo Taken No -Exudate Amt Small None Present -Exudate Type Serosanguineous -Wound Margin Flat & Intact Distinct, Outline Attached -Granulation Amt Small (1-33%) Small (1-33%) -Granulation Quality [place] Red -Necrosis Amt None Present (0 None Present (0 %) %) -Structure Exposed N/A -Texture (Natacha-wound Skin Appearance) Localized Edema Assessed, ,Scarring Scarring -Moisture (Natacha-wound Skin Appearance) Maceration No Abnormality, Assessed -Color (Natacha-wound Skin Appearance) No Abnormality No Abnormality, Assessed -Temperature (Natacha-wound Skin No Abnormality No Abnormality Appearance) (Pt Warm) (Pt Warm) -Tenderness on Palpation (Natacha-wound No No Skin Appearance) -Ulcer Cleansing Wound Cleanser soap and water -Foul Odor after Cleansing No No -Anesthetic Used 4% Lidocaine 4% Lidocaine Solution Solution #16 L Plantar foot -Current Size (cm) - Length 2.1 2.1 -Current Size (cm) - Width 1 1.7 -Current Size (cm) - Depth 1.1 0.7 -Total Square Cm 2.1 3.57 -Photo Taken No -Exudate Amt Medium Medium -Exudate Type Serosanguineous Serosanguineous -Wound Margin Thickened Distinct, Outline Attached -Granulation Amt Medium (34-66%) Large (67-100%) -Granulation Quality Red Red -Necrosis Amt Medium (34-66%) None Present (0 %) -Necrotic Tissue Type Eschar -Structure Exposed N/A -Texture (Natacha-wound Skin Appearance) Localized Edema Assessed, ,Scarring Scarring -Moisture (Natacha-wound Skin Appearance) Maceration No Abnormality, Assessed -Color (Natacha-wound Skin Appearance) No Abnormality No Abnormality, Assessed -Temperature (Natacha-wound Skin No Abnormality No Abnormality Appearance) (Pt Warm) (Pt Warm) -Tenderness on Palpation (Natacha-wound No No Skin Appearance) -Ulcer Cleansing Wound Cleanser soap and water -Foul Odor after Cleansing No No -Anesthetic Used 4% Lidocaine 4% Lidocaine Solution Solution Right Calf (cm) 39.8 42 Right Ankle (cm) 24.5 25 Left Calf (cm) 40.3 49 Left Ankle (cm) 26 25.9 WC - Nurse 2 - General Ulcer CM Notes Start: 05/19/21 11:10 Freq: Status: Active Protocol: Activity Type Activity Date Activity User E-Sign Co-Sign Detail Recorded Client Recorded Date Recorded By Document 05/19/21 11:54 JF [id number] 05/19/21 12:04 JF Document 05/26/21 08:46 JF [id number] 05/26/21 09:01 05/19/21 05/26/21 11:54 08:46 Wound Center Nurse 2 19-right inferior plantar -Time 11:54 08:47 -Correct Patient Yes Yes -Correct Side, Site, Position Yes Yes -Correct Procedure Yes Yes -Procedure Performed Yes Yes -Type of Procedure Debridement Debridement -Clinical Debridement Subcutaneous Subcutaneous -Tissue Removed Subcutaneous Subcutaneous -Post Debridement (cm) - Length 3.4 3 -Post Debridement (cm) - Width 2.2 2.1 -Post Debridement (cm) - Depth 1.1 0.4 -Total Square (Post) (cm) 7.48 6.3 -Area of Debridement (cm) - Length 3.4 3 -Area of Debridement (cm) - Width 2.2 2.1 -Total Square (Area) (cm) 7.48 6.3 -Tunneling No No -Undermining/Tunneling No No -Circular Undermining No No -Wound/Ulcer Outcome Not Healed Not Healed -Ulcer Cleansing Rinsed/ Rinsed/ Irrigated with Irrigated with Saline Saline -Foul Odor after Cleansing No No -Bioengineered Tissue Yes Yes -Type of Bioengineered Tissue Theraskin Theraskin -Expiration Date 07/29/24 11/22/24 -Product Lot Number [id number] -Percent Used 100 100 -Lot number of Saline Used [id number] -Bleeding Controlled with Pressure Pressure -Offloading Yes Yes -Type of Offloading Surgical Shoe Surgical Shoe -Treatment Response Procedure Procedure Tolerated Well Tolerated Well -Debridement - Subq, 1st 20sq cm No No -Apply Skin Sub - 1st 25 sq cm - Feet 1 1 -Theraskin (per sq cm) 13 6 #18 R Lat foot -Time 11:57 08:49 -Correct Patient Yes Yes -Correct Side, Site, Position Yes Yes -Correct Procedure Yes Yes -Procedure Performed Yes Yes -Type of Procedure Debridement Debridement -Clinical Debridement Subcutaneous Subcutaneous -Tissue Removed Subcutaneous Subcutaneous -Post Debridement (cm) - Length 0.5 0.3 -Post Debridement (cm) - Width 0.4 0.2 -Post Debridement (cm) - Depth 0.3 0.1 -Total Square (Post) (cm) 0.20 0.06 -Area of Debridement (cm) - Length 0.5 0.3 -Area of Debridement (cm) - Width 0.4 0.2 -Total Square (Area) (cm) 0.20 0.06 -Tunneling No No -Undermining/Tunneling No No -Circular Undermining No No -Wound/Ulcer Outcome Not Healed Not Healed -Ulcer Cleansing Rinsed/ Rinsed/ Irrigated with Irrigated with Saline Saline -Foul Odor after Cleansing No No -Bioengineered Tissue Yes No -Type of Bioengineered Tissue [place] -Expiration Date 07/29/24 -Product Lot Number [id number] -Percent Used 100 -Lot number of Saline Used [id number] -Bleeding Controlled with Pressure Pressure -Offloading Yes No -Type of Offloading Surgical Shoe -Treatment Response Procedure Procedure Tolerated Well Tolerated Well -Debridement - Subq, 1st 20sq cm No No -Apply Skin Sub - each addt'l 25 sq cm 0 - Feet -Theraskin (per sq cm) 0 #16 L Plantar foot -Time 11:58 08:49 -Correct Patient Yes Yes -Correct Side, Site, Position Yes Yes -Correct Procedure Yes Yes -Procedure Performed Yes Yes -Type of Procedure Debridement Debridement -Clinical Debridement Subcutaneous Subcutaneous -Tissue Removed Subcutaneous Subcutaneous -Post Debridement (cm) - Length 2.4 2.5 -Post Debridement (cm) - Width 1.7 1.8 -Post Debridement (cm) - Depth 0.9 0.9 -Total Square (Post) (cm) 4.08 4.50 -Area of Debridement (cm) - Length 2.4 2.5 -Area of Debridement (cm) - Width 1.7 1.8 -Total Square (Area) (cm) 4.08 4.50 -Tunneling No No -Undermining/Tunneling No No -Circular Undermining No No -Wound/Ulcer Outcome Not Healed Not Healed -Ulcer Cleansing Rinsed/ Rinsed/ Irrigated with Irrigated with Saline Saline -Foul Odor after Cleansing No No -Bioengineered Tissue Yes No -Type of Bioengineered Tissue Theraskin -Expiration Date 07/29/24 -Product Lot Number [id number] -Percent Used 100 -Lot number of Saline Used [id number] -Bleeding Controlled with Pressure Pressure -Offloading Yes Yes -Type of Offloading Surgical Shoe Surgical Shoe -Treatment Response Procedure Procedure Tolerated Well Tolerated Well -Debridement - Subq, 1st 20sq cm Yes Yes -Apply Skin Sub - 1st 25 sq cm - Feet 0 -Theraskin (per sq cm) 0 Pain Scale: 0-10 Numeric Is Patient Pain Free? Yes Yes - Nurse 3 - General Ulcer D/C NN Start: 05/19/21 11:10 Freq: Status: Active Protocol: Activity Type Activity Date Activity User E-Sign Co-Sign Detail Recorded Client Recorded Date Recorded By Document 05/19/21 12:20 DL [id number] 05/19/21 12:22 DL Document 05/26/21 09:20 KR [id number] 05/26/21 09:23 KR 05/19/21 05/26/21 12:20 09:20 Wound Care Nurse 3 19-right inferior plantar -Ulcer Cleansing Rinsed/ Irrigated with Saline -Foul Odor after Cleansing No -Other Dressing Theraskin -Primary Dressing Covered/Secured with Dry Gauze & Dry Gauze, Roll Gauze, Secured with Secured with Tape Tape #18 R Lat foot -Foul Odor after Cleansing No -Other Dressing Theraskin -Primary Dressing Covered/Secured with Dry Gauze & Roll Gauze, Secured with Tape #16 L Plantar foot -Ulcer Cleansing Rinsed/ Irrigated with Saline -Foul Odor after Cleansing No -Primary Dressing Applied Fibracol Plus 4x4 -Other Dressing [place] -Primary Dressing Covered/Secured with Dry Gauze & Dry Gauze, Roll Gauze, Secured with Secured with Tape Tape -Fibracol Plus 4x4 1 Left -Tubular Bandage Double Layer Double Layer -Size of Tubigrip Used Size F Size E -Size E ($) 2 -Size F ($) 2 Right -Tubular Bandage Double Layer Double Layer -Size of Tubigrip Used Size F Size E -Size E ($) 2 -Size F ($) 2 Treatment Response Procedure Tolerated Well Pain Scale: 0-10 Numeric Is Patient Pain Free? Yes Yes WC - Visit Discharge Discharge Condition Stable Stable Ambulatory Status Wheelchair Wheelchair Transportation Private Auto Private Auto Facility Type Home Health Orders Sent Yes Wound debrided: Plantar foot Laterality: Left Wound Grade/Stage: [place] 2 Type of Debridement: Excisional debridement Anesthesia Used: 4% Lidocaine Solution Depth: in the subcutaneous layer Percentage of wound debrided: 100 Instrument Used: 3mm curette Tissue Removed: includes fibrous, devitalized, biofilm, callus and slough tissue Severity: Fat Layer Exposed Amount of bleeding with debridement: Mild Bleeding Controlled with: Pressure Patient tolerated procedure: Patient tolerated procedure well Additional Wound Wound debrided: Plantar and lateral foot Laterality: Right Wound Grade/Stage: Fre[place] 2 Type of Debridement: Excisional debridement Anesthesia Used: 4% Lidocaine Solution Depth: in the subcutaneous layer Percentage of wound debrided: 100 Instrument Used: 3mm curette Tissue Removed: Includes fibrous, devitalized, biofilm, callus and slough tissue Severity: Fat Layer Exposed Amount of bleeding with debridement: Mild Bleeding Controlled with: Pressure Patient tolerated procedure: Patient tolerated procedure well Assessment/Plan Assessment/Plan (1) Non-pressure chronic 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 layer exposed: CODE(S): L97.512 - Non-pressure chronic 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 layer exposed (2) Type 2 diabetes mellitus with diabetic polyneuropathy: CODE(S): E11.42 - Type 2 diabetes mellitus with diabetic polyneuropathy QUALIFIERS: Diabetes mellitus terminal system operator insulin use: with fpc use Qualified Code(s): E11.42 - Type 2 diabetes mellitus with diabetic polyneuropathy; Z79.4 - senior living (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 Patient relates that the TheraSkin graft came off again this week. Home health care called us to tell us that she had removed it. Patient relates that she did not remove it but the nurse prior had taken it off.. She has history of the graft coming off prior to next visit. Patient has many excuses as to why she is not improving but does not seem to take personal responsibility for this. She relates that since being home she has not been able to stay off her feet 100% as she thought she would be able to. Had long conversation with patient about her responsibility as far as continued removal of dressings, weightbearing, engagement in her treatment plan. Patient noted to have wheelchair, knee scooter, crutches, surgical shoes for offloading. Patient has tried total contact cast in the past for offloading as well and did not tolerate this well with falls. Discussed long-term care will likely require [place] boots for offloading deformities to bilateral feet. Discussed the meantime bringing surgical shoes for modification to better allow for offloading but patient is not to be ambulating. Patient relates that she is not able to do this 100% given the layout of her home. Discussed how every step adds. Discussed how she improved while she was at the nursing facility and has worsened since being home. ulcerations were debrided after verbal consent was obtained by the patient. The right plantar foot ulceration was approved for TheraSkin graft application. I recommend application of advanced wound healing product to the indicated ulceration. Prior authorization was confirmed. The indications, benefits, anticipated application and healing time management were reviewed in detail. Verbal consent was obtained in the procedure for today. Site was debrided and graft was applied according to standard protocol and was further secured with a nonadherent dressing and Steri-Strips. Patient instructed that they can change outer dressing but not to go beneath the Steri-Strips. To wash left foot prior to dressing changes. Left plantar foot and right lateral foot ulceration covered with fibracol covered with dry sterile dressing. This is to be changed daily to every other day. She is reassured no signs of infection are noted today. Patient is to remain strict nonweightbearing to the right foot. Patient can transfer by putting weight through her toe or heel on the left foot. It is noted she is already been undergoing a comprehensive wound healing plan and has delayed and nonhealing. She has had prior bone biopsies, wound culture, and intervention with infectious disease. She has suspected adequate vascular perfusion for healing per her recent noninvasive vascular studies 09/01/2020 with triphasic waveforms noted. Patient's hemoglobin A1c was 13.1% on 12/29/2020. Offloading strongly recommended. Optimal blood sugar control and increased protein intake also discussed. Being forced to stay off her feet at the SNF has allowed the most improvement noted in these wounds in a long time. Since being home wounds have noted to have worsening likely due to her being more active on her feet along with her not getting the nutritional support she needs at home to control her blood sugar and optimize her for healing. All questions were answered and she was advised to call with any further questions or concerns. All signs and symptoms of local and systemic infection were discussed with the patient today. Follow up in 1 week. This note was generated with [employer] dictation software. It may contain incorrect words, spelling, and punctuation that were not noted in checking the note before signing.
[2021-06-09 09:18] VITALS: BP 143/68; PULSE 88; RESP 16; TEMP 36.4; BMI 32.3
--- NOTE | 2021-06-09 12:04 | PN.PCM_ITS ---
History of Present Illness Date of Service: 06/09/21 Chief Complaint: right foot ulcer left foot ulcer History of Wound: Patient is a 55-year-old female who presents to the clinic for bilateral foot ulcers. Patient has been dealing with wounds to bilateral lower extremities for years. Patient has noted noncompliance including going out of the country or on vacation with wounds without care. Patient has significant delayed healing and foot deformities contributing to these ulcerations. Patient states struggled to understand what she is doing is contributing to her lack of wound healing. Patient was recently at the hospital for gastroenteritis 03/03/21. Patient also noted that time to have worsening right foot with acute Charcot foot noted on x- ray and MRI. Patient was also noted to have multiple new blisters formed during hospital stay with wounds that remain. It was determined during hospital visit the patient was not stable not to go to the operating room. Bedside debridements and cultures were obtained. Patient was started on Levaquin per infectious disease. Patient is to continue wound care and has since followed up with the wound care center. Right foot wound culture from 03/06/2021 with significant for bacterial growth of staph aureus and strep group C. Left foot wound did not appear clinically infected but was polymicrobial upon culture on 03/05/2021. MRI obtained of the right foot was negative for osteomyelitis but showed small focal abscess to lateral plantar foot. Patient is no longer at the SNF facility and has had regression of wound since returning home Progress of Wound: Unchanged Subjective Subjective Patient seen and examined resting comfortably. Patient denies any new pedal complaints. Patient denies any nausea, fever, chills, chest pain, shortness of breath, cough, streaking, purulence, vomiting. Patient is very sleepy and fell asleep during exam today. Patient relates that she took her insulin this morning but did not eat breakfast. Patient was given some food to eat at the office but she was too busy playing on her phone to eat it right away even though she is complaining of low blood sugar symptoms. Patient relates that the skin graft fell off again this week. She thinks that it might be from using her foot push herself around in her wheelchair. Objective Data Objective Data Vital Signs: Vital Signs Temp Pulse Resp BP 97.5 F L 88 16 143/68 H 06/09/21 09:18 06/09/21 09:18 06/09/21 09:18 06/09/21 09:18 Oxygen Delivery Method Room Air Weight: 91.138 kg Body Mass Index (BMI) 32.3 Physical Exam Narrative Const alert General Appearance: cooperative, sleepy Extremity normal capillary refill and no calf tenderness General Extremity: no tenderness to palpation of joints or extremities and other findings Other Details: Capillary refill time less than 3 seconds noted to digits ; Negative for clubbing or cyanosis Skin General Skin Exam: atrophy and dry skin; Negative for ecchymosis, erythema, eschar, pallor or dermatitis Rashes: no rashes Wound Narrative: plantar left foot ulceration. Granular base. Mild maceration noted. Mild periwound callus tissue noted. There is no erythema or edema or malodor or purulence or other suggestion signs of infection. Serous drainage noted. There is some mild hyper granulation tissue at 3:00 positioning Plantar right foot ulceration is stable. Granular base. Mild maceration noted. Mild periwound callus tissue noted. There is no erythema or edema or malodor or purulence or other suggestion signs of infection. Serosanguineous drainage noted. There is some tunneling noted at 10:00 communicating with the lateral foot wound Right lateral foot wound. Granular base. Mild maceration noted. Mild periwound callus tissue and maceration noted. There is no erythema or edema or malodor or purulence or other suggestion signs of infection. Serosanguineous drainage noted. There is a blood blister communicating with the wound just distal to it with superficial in nature upon debridement. 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 Charcot foot deformity noted bilaterally. Continued bilateral lower extremity edema noted. No calf tenderness negative Jaswinder and Nuñez sign. DP and PT are diminished bilaterally Neuromuscular Sensory Exam: extremities light-touch: decreased Motor Exam: strength abnormal other (4/5 to all pedal muscle groups) There is foot and Charcot deformities noted to bilateral feet with prominent plantar lateral feet collapse Psych Appearance: appropriate Debridement Note Debridement Note Post-Debridement Measurements and Additional Note: Post-Debridement Measurements/Treatment WC - Nurse 1 - General Ulcer Assessment Start: 05/19/21 11:10 Freq: Status: Active Protocol: [email or web address] Activity Type Activity Date Activity User E-Sign Co-Sign Detail Recorded Client Recorded Date Recorded By Document 05/19/21 11:15 DL [id number] 05/19/21 11:32 DL Document 05/26/21 08:31 KR [id number] 05/26/21 08:37 KR Document 06/02/21 09:43 AK [id number] 06/02/21 09:50 AK Document 06/09/21 09:18 MW [id number] 06/09/21 09:23 MW 05/19/21 05/26/21 06/02/21 11:15 08:31 09:43 WC - Today's Visit Information Type of service Follow-up Visit Follow-up Visit Follow-up Visit (Physician/INSURANCE LAW SPECIALIST (Physician/INSURANCE LAW SPECIALIST (Physician/INSURANCE LAW SPECIALIST ) ) ) Arrival Mode Wheelchair Wheelchair Ambulatory, Wheelchair Transfer Assistance None Accompanied by Patient Identification Verified (Name & Yes Yes Yes ) Patient Requires Transmission-Based No Precautions Safety Precautions Finger Stick Blood Sugar(mg/dl) (if 196 231 indicated): Blood Sugar Stated by Stated by Patient Patient Height and Weight Body Mass Index (BMI) 32.3 32.3 32.3 BMI Classification Obese Obese Obese Vital Signs Temperature (97.8 F-99.1 F) 98.2 F 97.0 F L 92.1 F L Temperature Source Temporal Temporal Temporal Pulse Rate (60-100) 97 96 82 Pulse Location Monitor Monitor Monitor Respiratory Rate (12-18) 20 H Respiratory rate source Observation Oxygen Delivery Method Blood Pressure (90/60-120/80) 155/76 H 123/66 H 162/87 H Blood Pressure Mean (mm Hg) 102 85 112 Source Monitor Monitor Monitor Position Semi-Fowlers Blood Pressure Location Right Arm History Since Last Visit- (Skip if this is Patient's initial visit) Have you changed medications since your No No No last visit? Any new allergies or adverse reactions No No No Had a fall/change in ADL's that may No No No increase risk of falls Signs or symptoms of abuse and/or No No No neglect since last visit Have you been in the hospital since your No No last visit? Has dressing in place as prescribed Yes Yes Yes Has compression in place as prescribed Yes N/A Yes Has offloadiing in place as prescribed N/A N/A N/A Experienced any changes in pain level or No No No management Left Footwear Slipper Regular Shoe No Footwear Right Footwear Slipper Regular Shoe No Footwear Other Footwear Pain Scale: 0-10 Numeric Is Patient Pain Free? Yes Yes 08/31/21 09:18 WC - Today's Visit Information Type of service Follow-up Visit (Physician/INSURANCE LAW SPECIALIST ) Arrival Mode Wheelchair Transfer Assistance Manual Accompanied by self Patient Identification Verified (Name & Yes ) Patient Requires Transmission-Based No Precautions Safety Precautions Fall Prevention Finger Stick Blood Sugar(mg/dl) (if 240 indicated): Blood Sugar Stated by Patient Height and Weight Body Mass Index (BMI) 32.3 BMI Classification Obese Vital Signs Temperature (97.8 F-99.1 F) 97.5 F L Temperature Source Temporal Pulse Rate (60-100) 88 Pulse Location Monitor Respiratory Rate (12-18) 16 Respiratory rate source Observation Oxygen Delivery Method Room Air Blood Pressure (90/60-120/80) 143/68 H Blood Pressure Mean (mm Hg) 93 Source Monitor Position Sitting Blood Pressure Location Left Arm History Since Last Visit- (Skip if this is Patient's initial visit) Have you changed medications since your No last visit? Any new allergies or adverse reactions No Had a fall/change in ADL's that may No increase risk of falls Signs or symptoms of abuse and/or No neglect since last visit Have you been in the hospital since your No last visit? Has dressing in place as prescribed Yes Has compression in place as prescribed N/A Has offloadiing in place as prescribed N/A Experienced any changes in pain level or No management Left Footwear Other Footwear (Comment) Right Footwear Other Footwear (Comment) Other Footwear sock Pain Scale: 0-10 Numeric Is Patient Pain Free? Yes WC - Nurse 1 - General Ulcer Measurement Start: 05/19/21 11:10 Freq: Status: Active Protocol: Activity Type Activity Date Activity User E-Sign Co-Sign Detail Recorded Client Recorded Date Recorded By Document 05/19/21 11:15 DL [id number] 05/19/21 11:32 DL Document 05/26/21 08:31 KR [id number] 05/26/21 08:37 KR Document 06/02/21 09:43 AK [id number] 06/02/21 09:50 AK Document 06/09/21 09:18 MW [id number] 06/09/21 09:23 MW 05/19/21 05/26/21 06/02/21 11:15 08:31 09:43 Wound Center Nurse 1 19-right inferior plantar -Combined with other wound -Current Size (cm) - Length 0 3 2.9 -Current Size (cm) - Width 0 2.8 2.2 -Current Size (cm) - Depth 0 0.6 0.6 -Total Square Cm 0 8.4 6.38 -Photo Taken Yes -Epithelialization -Tunneling -Tunneling Position (O'clock) 10 -Tunneling Distance (cm) 1.4 -Undermining/Tunneling No -Undermining/Tunneling Starts (O'clock 11 ) -Undermining/Tunneling Ends (O'clock) 1 -Maximum Distance (cm) 0.6 -Circular Undermining Yes -Exudate Amt None Present Medium Large -Exudate Type Serosanguineous Serosanguineous -Wound Margin Distinct, Distinct, Outline Outline Attached Attached -Granulation Amt Large (67-100%) Large (67-100%) Large (67-100%) -Granulation Quality [place] Red Red -Slough/Fibrin -Necrosis Amt None Present (0 Large (67-100%) %) -Necrotic Tissue Type Adherent Slough -Structure Exposed N/A -Texture (Natacha-wound Skin Appearance) Localized Edema Assessed, No Abnormality, Scarring Assessed -Moisture (Natacha-wound Skin Appearance) No Abnormality No Abnormality, No Abnormality, Assessed Assessed -Color (Natacha-wound Skin Appearance) No Abnormality No Abnormality, No Ab normality, Assessed Assessed -Temperature (Natacha-wound Skin No Abnormality No Abnormality No Abnormality Appearance) (Pt Warm) (Pt Warm) (Pt Warm) -Tenderness on Palpation (Natacha-wound No No Yes Skin Appearance) -Ulcer Cleansing Wound Cleanser soap and water Rinsed/ Irrigated with Saline -Foul Odor after Cleansing No -Anesthetic Used 4% Lidocaine 4% Lidocaine Solution Solution #19 R Plantar Cluster -Current Size (cm) - Length 2.4 -Current Size (cm) - Width 3.5 -Current Size (cm) - Depth 0.3 -Total Square Cm 8.40 -Exudate Amt Medium -Exudate Type Serosanguineous -Wound Margin Thickened & Rolled Under -Granulation Amt Medium (34-66%) -Granulation Quality [place] -Necrosis Amt Medium (34-66%) -Necrotic Tissue Type Adherent Slough -Structure Exposed N/A -Texture (Natacha-wound Skin Appearance) Localized Edema ,Scarring -Moisture (Natacha-wound Skin Appearance) Maceration -Color (Natacha-wound Skin Appearance) No Abnormality -Temperature (Natacha-wound Skin No Abnormality Appearance) (Pt Warm) -Tenderness on Palpation (Natacha-wound No Skin Appearance) -Ulcer Cleansing Wound Cleanser -Foul Odor after Cleansing No -Anesthetic Used 4% Lidocaine Solution #18 R Lat foot -Combined with other wound -Current Size (cm) - Length 0.2 0.1 0.1 -Current Size (cm) - Width 0.3 0.1 0.1 -Current Size (cm) - Depth 0.6 0.1 0.1 -Total Square Cm 0.06 0.01 0.01 -Photo Taken No -Epithelialization -Tunneling -Undermining/Tunneling -Circular Undermining No -Exudate Amt Small None Present None Present -Exudate Type Serosanguineous -Wound Margin Flat & Intact Distinct, Distinct, Outline Outline Attached Attached -Granulation Amt Small (1-33%) Small (1-33%) -Granulation Quality [place] Red -Slough/Fibrin Yes -Necrosis Amt None Present (0 None Present (0 Medium (34-66%) %) %) -Necrotic Tissue Type Adherent Slough -Structure Exposed N/A -Texture (Natacha-wound Skin Appearance) Localized Edema Assessed, ,Scarring Scarring -Moisture (Natacha-wound Skin Appearance) Maceration No Abnormality, Assessed -Color (Natacha-wound Skin Appearance) No Abnormality No Abnormality, Assessed -Temperature (Natacha-wound Skin No Abnormality No Abnormality No Abnormality Appearance) (Pt Warm) (Pt Warm) (Pt Warm) -Tenderness on Palpation (Natacha-wound No No No Skin Appearance) -Ulcer Cleansing Wound Cleanser soap and water Rinsed/ Irrigated with Saline -Foul Odor after Cleansing No No -Anesthetic Used 4% Lidocaine 4% Lidocaine 4% Lidocaine Solution Solution Solution #16 L Plantar foot -Combined with other wound No -Current Size (cm) - Length 2.1 2.1 2.2 -Current Size (cm) - Width 1 1.7 1.8 -Current Size (cm) - Depth 1.1 0.7 0.4 -Total Square Cm 2.1 3.57 3.96 -Photo Taken No -Epithelialization -Tunneling -Undermining/Tunneling -Undermining/Tunneling Starts (O'clock ) -Undermining/Tunneling Ends (O'clock) -Maximum Distance (cm) -Undermining/Tunneling Starts #2 (O' clock) -Undermining/Tunneling Ends #2 (O' clock) -Maximum Distance #2 (cm) -Circular Undermining Yes -Exudate Amt Medium Medium None Present -Exudate Type Serosanguineous Serosanguineous -Wound Margin Thickened Distinct, Distinct, Outline Outline Attached Attached -Granulation Amt Medium (34-66%) Large (67-100%) Medium (34-66%) -Granulation Quality Red Red Red -Slough/Fibrin Yes -Necrosis Amt Medium (34-66%) None Present (0 Small (1-33%) %) -Necrotic Tissue Type Eschar -Structure Exposed N/A -Texture (Natacha-wound Skin Appearance) Localized Edema Assessed, No Abnormality, ,Scarring Scarring Assessed -Moisture (Natacha-wound Skin Appearance) Maceration No Abnormality, Assessed, Assessed Maceration -Color (Natacha-wound Skin Appearance) No Abnormality No Abnormality, No Abnormality, Assessed Assessed -Temperature (Natacha-wound Skin No Abnormality No Abnormality No Abnormality Appearance) (Pt Warm) (Pt Warm) (Pt Warm) -Tenderness on Palpation (Natacha-wound No No Yes Skin Appearance) -Ulcer Cleansing Wound Cleanser soap and water Rinsed/ Irrigated with Saline -Foul Odor after Cleansing No No -Anesthetic Used 4% Lidocaine 4% Lidocaine 4% Lidocaine Solution Solution Solution Lower Limb Edema Present Right Calf (cm) 39.8 42 Right Ankle (cm) 24.5 25 Left Calf (cm) 40.3 49 Left Ankle (cm) 26 25.9 06/09/21 09:18 Wound Center Nurse 1 19-right inferior plantar -Combined with other wound No -Current Size (cm) - Length 3.1 -Current Size (cm) - Width 1.8 -Current Size (cm) - Depth 0.1 -Total Square Cm 5.58 -Photo Taken No -Epithelialization None Present -Tunneling No -Tunneling Position (O'clock) -Tunneling Distance (cm) -Undermining/Tunneling Yes -Undermining/Tunneling Starts (O'clock 9 ) -Undermining/Tunneling Ends (O'clock) 11 -Maximum Distance (cm) 0.7 -Circular Undermining No -Exudate Amt Medium -Exudate Type Serous -Wound Margin Flat & Intact -Granulation Amt Medium (34-66%) -Granulation Quality [place] -Slough/Fibrin Yes -Necrosis Amt Medium (34-66%) -Necrotic Tissue Type Adherent Slough -Structure Exposed N/A -Texture (Natacha-wound Skin Appearance) Assessed,Callus ,Localized Edema,Scarring -Moisture (Natacha-wound Skin Appearance) Assessed, Maceration -Color (Natacha-wound Skin Appearance) No Abnormality, Assessed -Temperature (Natacha-wound Skin No Abnormality Appearance) (Pt Warm) -Tenderness on Palpation (Natacha-wound No Skin Appearance) -Ulcer Cleansing Rinsed/ Irrigated with Saline -Foul Odor after Cleansing No -Anesthetic Used 4% Lidocaine Solution #19 R Plantar Cluster -Current Size (cm) - Length -Current Size (cm) - Width -Current Size (cm) - Depth -Total Square Cm -Exudate Amt -Exudate Type -Wound Margin -Granulation Amt -Granulation Quality -Necrosis Amt -Necrotic Tissue Type -Structure Exposed -Texture (Natacha-wound Skin Appearance) -Moisture (Natacha-wound Skin Appearance) -Color (Natacha-wound Skin Appearance) -Temperature (Natacha-wound Skin Appearance) -Tenderness on Palpation (Natacha-wound Skin Appearance) -Ulcer Cleansing -Foul Odor after Cleansing -Anesthetic Used #18 R Lat foot -Combined with other wound No -Current Size (cm) - Length 0.2 -Current Size (cm) - Width 0.2 -Current Size (cm) - Depth 0.7 -Total Square Cm 0.04 -Photo Taken No -Epithelialization None Present -Tunneling No -Undermining/Tunneling No -Circular Undermining Yes -Exudate Amt Medium -Exudate Type Serosanguineous -Wound Margin Flat & Intact -Granulation Amt Medium (34-66%) -Granulation Quality [place] -Slough/Fibrin Yes -Necrosis Amt Medium (34-66%) -Necrotic Tissue Type Adherent Slough -Structure Exposed N/A -Texture (Natacha-wound Skin Appearance) Assessed,Callus ,Localized Edema,Scarring -Moisture (Natacha-wound Skin Appearance) Assessed, Maceration -Color (Natacha-wound Skin Appearance) No Abnormality, Assessed -Temperature (Natacha-wound Skin No Abnormality Appearance) (Pt Warm) -Tenderness on Palpation (Natacha-wound No Skin Appearance) -Ulcer Cleansing Rinsed/ Irrigated with Saline -Foul Odor after Cleansing No -Anesthetic Used 4% Lidocaine Solution #16 L Plantar foot -Combined with other wound No -Current Size (cm) - Length 2.5 -Current Size (cm) - Width 1.8 -Current Size (cm) - Depth 0.7 -Total Square Cm 4.50 -Photo Taken No -Epithelialization None Present -Tunneling No -Undermining/Tunneling Yes -Undermining/Tunneling Starts (O'clock 6 ) -Undermining/Tunneling Ends (O'clock) 7 -Maximum Distance (cm) 0.5 -Undermining/Tunneling Starts #2 (O' 11 clock) -Undermining/Tunneling Ends #2 (O' 12 clock) -Maximum Distance #2 (cm) 0.6 -Circular Undermining No -Exudate Amt Medium -Exudate Type Serosanguineous -Wound Margin Flat & Intact -Granulation Amt Medium (34-66%) -Granulation Quality [place] -Slough/Fibrin Yes -Necrosis Amt Medium (34-66%) -Necrotic Tissue Type Adherent Slough -Structure Exposed N/A -Texture (Natacha-wound Skin Appearance) Assessed,Callus ,Localized Edema,Scarring -Moisture (Natacha-wound Skin Appearance) Assessed, Maceration -Color (Natacha-wound Skin Appearance) No Abnormality, Assessed -Temperature (Natacha-wound Skin No Abnormality Appearance) (Pt Warm) -Tenderness on Palpation (Natacha-wound No Skin Appearance) -Ulcer Cleansing Rinsed/ Irrigated with Saline -Foul Odor after Cleansing No -Anesthetic Used 4% Lidocaine Solution Lower Limb Edema Present No Right Calf (cm) Right Ankle (cm) Left Calf (cm) Left Ankle (cm) WC - Nurse 2 - General Ulcer CM Notes Start: 05/19/21 11:10 Freq: Status: Active Protocol: Activity Type Activity Date Activity User E-Sign Co-Sign Detail Recorded Client Recorded Date Recorded By Document 05/19/21 11:54 LISSY [id number] 05/19/21 12:04 Document 05/26/21 08:46 LISSY [id number] 05/26/21 09:01 Document 06/02/21 09:49 LISSY [id number] 06/02/21 10:01 Document 06/09/21 09:30 LISSY [id number] 06/09/21 09:50 JF 05/19/21 05/26/21 06/02/21 11:54 08:46 09:49 Wound Center Nurse 2 19-right inferior plantar -Time 11:54 08:47 09:50 -Correct Patient Yes Yes Yes -Correct Side, Site, Position Yes Yes Yes -Correct Procedure Yes Yes Yes -Procedure Performed Yes Yes Yes -Type of Procedure Debridement Debridement Debridement -Clinical Debridement Subcutaneous Subcutaneous Subcutaneous -Tissue Removed Subcutaneous Subcutaneous Subcutaneous -Post Debridement (cm) - Length 3.4 3 3.5 -Post Debridement (cm) - Width 2.2 2.1 2.4 -Post Debridement (cm) - Depth 1.1 0.4 0.9 -Total Square (Post) (cm) 7.48 6.3 8.40 -Area of Debridement (cm) - Length 3.4 3 3.5 -Area of Debridement (cm) - Width 2.2 2.1 2.4 -Total Square (Area) (cm) 7.48 6.3 8.40 -Tunneling No No No -Undermining/Tunneling No No No -Circular Undermining No No No -Wound/Ulcer Outcome Not Healed Not Healed Not Healed -Ulcer Cleansing Rinsed/ Rinsed/ Rinsed/ Irrigated with Irrigated with Irrigated with Saline Saline Saline -Foul Odor after Cleansing No No No -Bioengineered Tissue Yes Yes Yes -Type of Bioengineered Tissue Theraskin Theraskin Theraskin -Expiration Date 07/29/24 11/22/24 11/22/24 -Product Lot Number [id number] -Percent Used 100 100 100 -Lot number of Saline Used [id number] -Bleeding Controlled with Pressure Pressure Pressure -Offloading Yes Yes Yes -Type of Offloading Surgical Shoe Surgical Shoe Surgical Shoe -Treatment Response Procedure Procedure Procedure Tolerated Well Tolerated Well Tolerated Well -Debridement - Subq, 1st 20sq cm No No No -Apply Skin Sub - 1st 25 sq cm - Feet 1 1 1 -Theraskin (per sq cm) 13 6 6 #18 R Lat foot -Time 11:57 08:49 09:51 -Correct Patient Yes Yes Yes -Correct Side, Site, Position Yes Yes Yes -Correct Procedure Yes Yes Yes -Procedure Performed Yes Yes Yes -Type of Procedure Debridement Debridement Debridement -Clinical Debridement Subcutaneous Subcutaneous Subcutaneous -Tissue Removed Subcutaneous Subcutaneous Subcutaneous -Post Debridement (cm) - Length 0.5 0.3 0.3 -Post Debridement (cm) - Width 0.4 0.2 0.2 -Post Debridement (cm) - Depth 0.3 0.1 0.4 -Total Square (Post) (cm) 0.20 0.06 0.06 -Area of Debridement (cm) - Length 0.5 0.3 0.3 -Area of Debridement (cm) - Width 0.4 0.2 0.2 -Total Square (Area) (cm) 0.20 0.06 0.06 -Tunneling No No No -Undermining/Tunneling No No No -Circular Undermining No No No -Wound/Ulcer Outcome Not Healed Not Healed Not Healed -Ulcer Cleansing Rinsed/ Rinsed/ Rinsed/ Irrigated with Irrigated with Irrigated with Saline Saline Saline -Foul Odor after Cleansing No No No -Bioengineered Tissue Yes No No -Type of Bioengineered Tissue [place] -Expiration Date 07/29/24 -Product Lot Number [id number] -Percent Used 100 -Lot number of Saline Used [id number] -Bleeding Controlled with Pressure Pressure Pressure -Offloading Yes No No -Type of Offloading Surgical Shoe -Treatment Response Procedure Procedure Procedure Tolerated Well Tolerated Well Tolerated Well -Debridement - Subq, 1st 20sq cm No No Yes -Apply Skin Sub - each addt'l 25 sq cm 0 - Feet -Theraskin (per sq cm) 0 #16 L Plantar foot -Time 11:58 08:49 09:58 -Correct Patient Yes Yes Yes -Correct Side, Site, Position Yes Yes Yes -Correct Procedure Yes Yes Yes -Procedure Performed Yes Yes Yes -Type of Procedure Debridement Debridement Debridement -Clinical Debridement Subcutaneous Subcutaneous Subcutaneous -Tissue Removed Subcutaneous Subcutaneous Subcutaneous -Post Debridement (cm) - Length 2.4 2.5 2.4 -Post Debridement (cm) - Width 1.7 1.8 1.7 -Post Debridement (cm) - Depth 0.9 0.9 0.6 -Total Square (Post) (cm) 4.08 4.50 4.08 -Area of Debridement (cm) - Length 2.4 2.5 2.4 -Area of Debridement (cm) - Width 1.7 1.8 1.7 -Total Square (Area) (cm) 4.08 4.50 4.08 -Tunneling No No No -Undermining/Tunneling No No No -Circular Undermining No No No -Wound/Ulcer Outcome Not Healed Not Healed Not Healed -Ulcer Cleansing Rinsed/ Rinsed/ Rinsed/ Irrigated with Irrigated with Irrigated with Saline Saline Saline -Foul Odor after Cleansing No No No -Bioengineered Tissue Yes No No -Type of Bioengineered Tissue Ther[place] -Expiration Date 07/29/24 -Product Lot Number [id number] -Percent Used 100 -Lot number of Saline Used [id number] -Bleeding Controlled with Pressure Pressure Pressure -Offloading Yes Yes No -Type of Offloading Surgical Shoe Surgical Shoe -Treatment Response Procedure Procedure Procedure Tolerated Well Tolerated Well Tolerated Well -Debridement - Subq, 1st 20sq cm Yes Yes No -Apply Skin Sub - 1st 25 sq cm - Feet 0 -Theraskin (per sq cm) 0 Pain Scale: 0-10 Numeric Is Patient Pain Free? Yes Yes Yes 06/09/21 09:30 Wound Center Nurse 2 19-right inferior plantar -Time 09:34 -Correct Patient Yes -Correct Side, Site, Position Yes -Correct Procedure Yes -Procedure Performed Yes -Type of Procedure Debridement -Clinical Debridement Subcutaneous -Tissue Removed Subcutaneous -Post Debridement (cm) - Length 3.2 -Post Debridement (cm) - Width 2 -Post Debridement (cm) - Depth 0.9 -Total Square (Post) (cm) 6.4 -Area of Debridement (cm) - Length 3.2 -Area of Debridement (cm) - Width 2 -Total Square (Area) (cm) 6.4 -Tunneling No -Undermining/Tunneling No -Circular Undermining No -Wound/Ulcer Outcome Not Healed -Ulcer Cleansing Rinsed/ Irrigated with Saline -Foul Odor after Cleansing No -Bioengineered Tissue No -Type of Bioengineered Tissue -Expiration Date -Product Lot Number -Percent Used -Lot number of Saline Used -Bleeding Controlled with Pressure -Offloading Yes -Type of Offloading Camwalker -Treatment Response Procedure Tolerated Well -Debridement - Subq, 1st 20sq cm Yes -Apply Skin Sub - 1st 25 sq cm - Feet -Theraskin (per sq cm) #18 R Lat foot -Time 09:35 -Correct Patient Yes -Correct Side, Site, Position Yes -Correct Procedure Yes -Procedure Performed Yes -Type of Procedure Debridement -Clinical Debridement Subcutaneous -Tissue Removed Subcutaneous -Post Debridement (cm) - Length 0.4 -Post Debridement (cm) - Width 1 -Post Debridement (cm) - Depth 0.3 -Total Square (Post) (cm) 0.4 -Area of Debridement (cm) - Length 0.4 -Area of Debridement (cm) - Width 1 -Total Square (Area) (cm) 0.4 -Tunneling No -Undermining/Tunneling No -Circular Undermining No -Wound/Ulcer Outcome Not Healed -Ulcer Cleansing Rinsed/ Irrigated with Saline -Foul Odor after Cleansing No -Bioengineered Tissue No -Type of Bioengineered Tissue -Expiration Date -Product Lot Number -Percent Used -Lot number of Saline Used -Bleeding Controlled with Pressure -Offloading -Type of Offloading Total Contact Cast (TCC) - Left ($) -Treatment Response Procedure Tolerated Well -Debridement - Subq, 1st 20sq cm No -Apply Skin Sub - each addt'l 25 sq cm - Feet -Theraskin (per sq cm) #16 L Plantar foot -Time 09:37 -Correct Patient Yes -Correct Side, Site, Position Yes -Correct Procedure Yes -Procedure Performed Yes -Type of Procedure Debridement -Clinical Debridement Subcutaneous -Tissue Removed Subcutaneous -Post Debridement (cm) - Length 2 -Post Debridement (cm) - Width 1.8 -Post Debridement (cm) - Depth 0.5 -Total Square (Post) (cm) 3.6 -Area of Debridement (cm) - Length 2 -Area of Debridement (cm) - Width 1.8 -Total Square (Area) (cm) 3.6 -Tunneling No -Undermining/Tunneling No -Circular Undermining No -Wound/Ulcer Outcome Not Healed -Ulcer Cleansing Rinsed/ Irrigated with Saline -Foul Odor after Cleansing No -Bioengineered Tissue No -Type of Bioengineered Tissue -Expiration Date -Product Lot Number -Percent Used -Lot number of Saline Used -Bleeding Controlled with Pressure -Offloading No -Type of Offloading -Treatment Response Procedure Tolerated Well -Debridement - Subq, 1st 20sq cm No -Apply Skin Sub - 1st 25 sq cm - Feet -Theraskin (per sq cm) Pain Scale: 0-10 Numeric Is Patient Pain Free? Yes WC - Nurse 3 - General Ulcer D/C NN Start: 05/19/21 11:10 Freq: Status: Active Protocol: Activity Type Activity Date Activity User E-Sign Co-Sign Detail Recorded Client Recorded Date Recorded By Document 05/19/21 12:20 DL [id number] 05/19/21 12:22 DL Document 05/26/21 09:20 KR [id number] 05/26/21 09:23 KR Document 06/02/21 11:12 DL [id number] 06/02/21 11:15 DL Document 06/09/21 10:55 DL [id number] 06/09/21 10:57 DL 05/19/21 05/26/21 06/02/21 12:20 09:20 11:12 Wound Care Nurse 3 19-right inferior plantar -Ulcer Cleansing Rinsed/ Irrigated with Saline -Foul Odor after Cleansing No No -Other Dressing Theraskin Theraskin -Primary Dressing Covered/Secured with Dry Gauze & Dry Gauze, Dry Gauze & Roll Gauze, Secured with Roll Gauze, Secured with Tape Secured with Tape Tape #18 R Lat foot -Ulcer Cleansing Rinsed/ Irrigated with Saline -Foul Odor after Cleansing No No -Primary Dressing Applied Fibracol Plus 4x4 -Other Dressing Theraskin -Primary Dressing Covered/Secured with Dry Gauze & Dry Gauze & Roll Gauze, Roll Gauze, Secured with Secured with Tape Tape -Fibracol Plus 4x4 1 #16 L Plantar foot -Ulcer Cleansing Rinsed/ Rinsed/ Irrigated with Irrigated with Saline Saline -Foul Odor after Cleansing No No -Primary Dressing Applied Fibracol Plus 4x4 -Other Dressing Theraskin fibracol -Primary Dressing Covered/Secured with Dry Gauze & Dry Gauze, Dry Gauze & Roll Gauze, Secured with Roll Gauze, Secured with Tape Secured with Tape Tape -Fibracol Plus 4x4 1 Left -Tubular Bandage Double Layer Double Layer -Size of Tubigrip Used Size F Size E -Size E ($) 2 -Size F ($) 2 Right -Tubular Bandage Double Layer Double Layer -Size of Tubigrip Used Size F Size E -Size E ($) 2 -Size F ($) 2 Treatment Response Procedure Procedure Tolerated Well Tolerated Well Pain Scale: 0-10 Numeric Is Patient Pain Free? Yes Yes Yes WC - Visit Discharge Discharge Condition Stable Stable Stable Ambulatory Status Wheelchair Wheelchair Wheelchair Transportation Private [facility] Facility Type Home Health Home Health Orders Sent Yes Yes 06/09/21 10:55 Wound Care Nurse 3 19-right inferior plantar -Ulcer Cleansing Rinsed/ Irrigated with Saline -Foul Odor after Cleansing No -Other Dressing moist gauze -Primary Dressing Covered/Secured with Dry Gauze & Roll Gauze, Secured with Tape #18 R Lat foot -Ulcer Cleansing Wound Cleanser -Foul Odor after Cleansing No -Primary Dressing Applied -Other Dressing moist gauze -Primary Dressing Covered/Secured with -Fibracol Plus 4x4 #16 L Plantar foot -Ulcer Cleansing Wound Cleanser -Foul Odor after Cleansing No -Primary Dressing Applied Fibracol Plus 4x4 -Other Dressing -Primary Dressing Covered/Secured with Dry Gauze & Roll Gauze, Secured with Tape -Fibracol Plus 4x4 1 Left -Tubular Bandage Double Layer -Size of Tubigrip Used Size E -Size E ($) 2 -Size F ($) Right -Tubular Bandage Double Layer -Size of Tubigrip Used Size E -Size E ($) 2 -Size F ($) Treatment Response Procedure Tolerated Well Pain Scale: 0-10 Numeric Is Patient Pain Free? Yes WC - Visit Discharge Discharge Condition Stable Ambulatory Status Wheelchair Transportation Facility Type Home Health Orders Sent Yes Wound debrided: Plantar and lateral foot Laterality: Right Wound Grade/Stage: Freedman 1 Type of Debridement: Excisional debridement Anesthesia Used: 4% Lidocaine Solution Depth: in the subcutaneous layer Percentage of wound debrided: 100 Instrument Used: 3mm curette Tissue Removed: includes fibrous, devitalized, biofilm, callus and slough tissue Severity: Fat Layer Exposed Amount of bleeding with debridement: Mild Bleeding Controlled with: Pressure Patient tolerated procedure: Patient tolerated procedure well Additional Wound Wound debrided: Plantar foot Laterality: Left Wound Grade/Stage: Freedman 1 Type of Debridement: Excisional debridement Anesthesia Used: 4% Lidocaine Solution Depth: in the subcutaneous layer Percentage of wound debrided: 100 Instrument Used: 3mm curette Tissue Removed: Includes fibrous, devitalized, biofilm, callus and slough tissue Severity: Fat Layer Exposed Amount of bleeding with debridement: Mild Bleeding Controlled with: Pressure Patient tolerated procedure: Patient tolerated procedure well Assessment/Plan Assessment/Plan (1) Non-pressure chronic 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 layer exposed: CODE(S): L97.512 - Non-pressure chronic 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 layer exposed (2) Type 2 diabetes mellitus with diabetic polyneuropathy: CODE(S): E11.42 - Type 2 diabetes mellitus with diabetic polyneuropathy QUALIFIERS: Diabetes mellitus long term acute care registered nurse insulin use: with long term acute care registered nurse use Qualified Code(s): E11.42 - Type 2 diabetes mellitus with diabetic polyneuropathy; Z79.4 - computer terminal operator (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 Patient relates that the TheraSkin graft came off again this week. Patient is rather defensive about how is not her fault that it came off. Patient is noted to be noncompliant and seems to have an excuse for everything is to avoiding taking responsibility for her own care. As per discussion last week patient brought total contact cast boot as this area only available offloading foot care option that she says she still has access to. Patient asked to have the bottom of the boot modified in order to offload the ulcer site so she can use it to scoot herself around in her wheelchair without disturbing the wound site. Discussed that this is optimal as this boot is not designed for walking without the cast on. Patient would still like to try. Boot was modified for patient to attempt this. ulcerations were debrided after verbal consent was obtained by the patient. The right plantar foot ulceration was approved for TheraSkin graft application. As patient has been unable to keep the graft in place time we will take a break from the application. We will go back to Lori's wet-to-dry with packing into the tunneling aspect of the right foot wound. She is to wash bilateral lower extremities prior to dressing changes with soap and water. Patient to continue fibracol dressing on the left. Cover with dry sterile dressing bilaterally. To be changed every other day or every day She is reassured no signs of infection are noted today. Patient is to remain strict nonweightbearing to the right foot. Patient can transfer by putting weight through her toe or heel on the left foot. It is noted she is already been undergoing a comprehensive wound healing plan and has delayed and nonhealing. She has had prior bone biopsies, wound culture, and intervention with infectious disease. She has suspected adequate vascular perfusion for healing per her recent noninvasive vascular studies 09/01/2020 with triphasic waveforms noted. Patient's hemoglobin A1c was 13.1% on 12/29/2020. Offloading strongly recommended. Optimal blood sugar control and increased protein intake also discussed. Being forced to stay off her feet at the SNF has allowed the most improvement noted in these wounds in a long time. Since being home wounds have noted to have worsening likely due to her being more active on her feet along with her not getting the nutritional support she needs at home to control her blood sugar and optimize her for healing. All questions were answered and she was advised to call with any further quest ions or concerns. All signs and symptoms of local and systemic infection were discussed with the patient today. Follow up in 1 week. This note was generated with [email or web address] dictation software. It may contain incorrect words, spelling, and punctuation that were not noted in checking the note before signing.
== END 2021-06-09 23:59 ==
LOC: WC 09:00
PROVIDERS: PCP Family Medicine; Referring Provider Podiatrist; Visit Provider Podiatrist Foot & Ankle Surgery
DX: E11.621 Type 2 diabetes mellitus with foot ulcer (principal); L97.422 Non-pressure chronic ulcer of left heel and midfoot with fat layer exposed; L97.412 Non-pressure chronic ulcer of right heel and midfoot with fat layer exposed; E11.610 Type 2 diabetes mellitus with diabetic neuropathic arthropathy; E11.42 Type 2 diabetes mellitus with diabetic polyneuropathy; M79.89 Other specified soft tissue disorders; R60.0 Localized edema; M25.571 Pain in right ankle and joints of right foot; M25.572 Pain in left ankle and joints of left foot; Z91.19 Patient's noncompliance with other medical treatment and regimen; Z79.02 Long term (current) use of antithrombotics/antiplatelets; Z79.82 Long term (current) use of aspirin; Z79.4 Long term (current) use of insulin; Z79.899 Other long term (current) drug therapy
CPT/HCPCS: 11042; 15275; 29445; Q4121

== ENCOUNTER 2021-07-03 09:00 | Outpatient (RCR) | payer MEDICARE, MEDICAID, SELFPAY ==
[2018-09-21 13:23] VITALS: BMI 29.3
[2021-06-10 00:24] VITALS: BP 143/68; PULSE 88; RESP 16; TEMP 36.4; BMI 32.3
[2021-06-23 08:56] VITALS: BP 131/67; PULSE 104; RESP 16; TEMP 36.4; BMI 32.3
--- NOTE | 2021-06-23 09:14 | PN.PCM_ITS ---
History of Present Illness Date of Service: 06/23/21 Chief Complaint: right foot ulcer left foot ulcer History of Wound: Patient is a 55-year-old female who presents to the clinic for bilateral foot ulcers. Patient has been dealing with wounds to bilateral lower extremities for years. Patient has noted noncompliance including going out of the country or on vacation with wounds without care. Patient has significant delayed healing and foot deformities contributing to these ulcerations. Patient states struggled to understand what she is doing is contributing to her lack of wound healing. Patient was recently at the hospital for gastroenteritis 03/03/21. Patient also noted that time to have worsening right foot with acute Charcot foot noted on x- ray and MRI. Patient was also noted to have multiple new blisters formed during hospital stay with wounds that remain. It was determined during hospital visit the patient was not stable not to go to the operating room. Bedside debridements and cultures were obtained. Patient was started on Levaquin per infectious disease. Patient is to continue wound care and has since followed up with the wound care center. Right foot wound culture from 03/06/2021 with significant for bacterial growth of staph aureus and strep group C. Left foot wound did not appear clinically infected but was polymicrobial upon culture on 03/05/2021. MRI obtained of the right foot was negative for osteomyelitis but showed small focal abscess to lateral plantar foot. Patient is no longer at the SNF facility and has had regression of wound since returning home Progress of Wound: Stable right plantar foot, worsening left plantar foot, improvement to right lateral foot, new wound to right lateral ankle Subjective Subjective Patient seen and examined resting comfortably. Patient denies any new pedal complaints. Patient denies any nausea, fever, chills, chest pain, shortness of breath, cough, streaking, purulence, vomiting. Patient relates recent fall out of bed. Patient has excuses as to why she missed her appointment last week Objective Data Objective Data Vital Signs: Vital Signs Temp Pulse Resp BP 97.5 F L 104 H 16 131/67 H 06/23/21 08:56 06/23/21 08:56 06/23/21 08:56 06/23/21 08:56 Oxygen Delivery Method Room Air Weight: 91.138 kg Body Mass Index (BMI) 32.3 Physical Exam Narrative Const alert General Appearance: cooperative, sleepy Extremity normal capillary refill and no calf tenderness General Extremity: no tenderness to palpation of joints or extremities and other findings Other Details: Capillary refill time less than 3 seconds noted to digits ; Negative for clubbing or cyanosis Skin General Skin Exam: atrophy and dry skin; Negative for ecchymosis, erythema, eschar, pallor or dermatitis Rashes: no rashes Wound Narrative: plantar left foot ulceration. Granular base. Mild maceration noted. Moderate periwound callus tissue noted. There is no erythema or edema or malodor or purulence or other suggestion signs of infection. Serous drainage noted. Plantar right foot ulceration is stable. Granular base. Mild maceration noted. Moderate periwound callus tissue noted. There is no erythema or edema or malodor or purulence or other suggestion signs of infection. Serosanguineous drainage noted. There is some tunneling noted at 10:00 that no longer communicates with the lateral foot wound Right lateral foot wound. Granular base. Mild maceration noted. Mild periwound callus tissue and maceration noted. There is no erythema or edema or malodor or purulence or other suggestion signs of infection. Serosanguineous drainage noted. Right lateral ankle ulceration. To level of fascia. No erythema or edema or malodor or purulence or other cyst signs suggestive of infection. Mild serosanguineous drainage noted. Surrounding scar tissue noted. 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 Charcot foot deformity noted bilaterally. Continued bilateral lower extremity edema noted. No calf tenderness negative Jaswinder and Nuñez sign. DP and PT are diminished bilaterally Neuromuscular Sensory Exam: extremities light-touch: decreased Motor Exam: strength abnormal other (4/5 to all pedal muscle groups) There is foot and Charcot deformities noted to bilateral feet with prominent plantar lateral feet collapse Psych Appearance: normal Debridement Note Debridement Note Wound debrided: Plantar and lateral foot and lateral ankle Laterality: Right Wound Grade/Stage: Freedman 1 Type of Debridement: Excisional debridement Anesthesia Used: 4% Lidocaine Solution Depth: in the subcutaneous layer Percentage of wound debrided: 100 Instrument Used: 3mm curette Tissue Removed: includes fibrous, devitalized, biofilm, callus and slough tissue Severity: Fat Layer Exposed Amount of bleeding with debridement: Mild Bleeding Controlled with: Pressure Patient tolerated procedure: Patient tolerated procedure well Post-Debridement Measurements and Additional Note: Post-Debridement Measurements/Treatment WC - Nurse 1 - General Ulcer Assessment Start: 06/23/21 08:54 Freq: Status: Active Protocol: WC.BRODIEEXNory Activity Type Activity Date Activity User E-Sign Co-Sign Detail Recorded Client Recorded Date Recorded By Document 06/23/21 08:56 [facility] [id number] 06/23/21 09:12 [facility] 06/23/21 08:56 - Today's Visit Information Type of service Follow-up Visit (Physician/NURSE TECHNICIAN ) Arrival Mode Wheelchair Transfer Assistance Other Transfer Assist (Other) stand by Patient Identification Verified (Name & Yes ) Patient Requires Transmission-Based No Precautions Height and Weight Body Mass Index (BMI) 32.3 BMI Classification Obese Vital Signs Temperature (97.8 F-99.1 F) 97.5 F L Temperature Source Temporal Pulse Rate (60-100) 104 H Pulse Location Monitor Respiratory Rate (12-18) 16 Respiratory rate source Observation Oxygen Delivery Method Room Air Blood Pressure (90/60-120/80) 131/67 H Blood Pressure Mean (mm Hg) 88 Source Monitor Position Sitting Blood Pressure Location Right Arm History Since Last Visit- (Skip if this is Patient's initial visit) Have you changed medications since your No last visit? Any new allergies or adverse reactions No Had a fall/change in ADL's that may Yes increase risk of falls Signs or symptoms of abuse and/or No neglect since last visit Have you been in the hospital since your No last visit? Has dressing in place as prescribed Yes Has compression in place as prescribed Yes Has offloadiing in place as prescribed Yes Experienced any changes in pain level or No management Left Footwear Other Footwear (Comment) Right Footwear Removable Cast Walker/Walking Boot Other Footwear sock to left foot Pain Scale: 0-10 Numeric Is Patient Pain Free? Yes - Nurse 1 - General Ulcer Measurement Start: 06/23/21 08:54 Freq: Status: Active Protocol: Activity Type Activity Date Activity User E-Sign Co-Sign Detail Recorded Client Recorded Date Recorded By Document 06/23/21 08:56 [facility] [id number] 06/23/21 09:12 [facility] 06/23/21 08:56 Wound Center Nurse 1 #20- R LAT ANKLE -Combined with other wound No -Current Size (cm) - Length 1 -Current Size (cm) - Width 2.1 -Current Size (cm) - Depth 0.1 -Total Square Cm 2.1 -Date of Last Picture (Recall this 06/23/21 field) -Photo Taken Yes -Epithelialization None Present -Tunneling No -Undermining/Tunneling No -Circular Undermining No -Exudate Amt Medium -Exudate Type Serosanguineous -Wound Margin Distinct, Outline Attached -Granulation Amt Medium (34-66%) -Granulation Quality Red -Slough/Fibrin Yes -Necrosis Amt Medium (34-66%) -Necrotic Tissue Type Adherent Slough -Texture (Natacha-wound Skin Appearance) Assessed, Scarring -Moisture (Natacha-wound Skin Appearance) Assessed -Color (Natacha-wound Skin Appearance) Assessed -Temperature (Natacha-wound Skin No Abnormality Appearance) (Pt Warm) -Tenderness on Palpation (Natacha-wound No Skin Appearance) -Ulcer Cleansing SOAPY WATER -Foul Odor after Cleansing No -Anesthetic Used 4% Lidocaine Solution 19-right inferior plantar -Combined with other wound No -Current Size (cm) - Length 2.5 -Current Size (cm) - Width 2.4 -Current Size (cm) - Depth 0.6 -Total Square Cm 6.00 -Date of Last Picture (Recall this 06/23/21 field) -Photo Taken Yes -Epithelialization None Present -Tunneling No -Undermining/Tunneling Yes -Undermining/Tunneling Starts (O'clock 9 ) -Undermining/Tunneling Ends (O'clock) 1 -Maximum Distance (cm) 1 -Circular Undermining No -Exudate Amt Medium -Exudate Type Serosanguineous -Wound Margin Distinct, Outline Attached -Granulation Amt Large (67-100%) -Granulation Quality Red -Slough/Fibrin No -Necrosis Amt Small (1-33%) -Necrotic Tissue Type Adherent Slough -Texture (Natacha-wound Skin Appearance) Assessed,Callus ,Scarring -Moisture (Natacha-wound Skin Appearance) Assessed,Dry/ Scaly -Color (Natacha-wound Skin Appearance) Assessed -Temperature (Natacha-wound Skin No Abnormality Appearance) (Pt Warm) -Tenderness on Palpation (Natacha-wound No Skin Appearance) -Ulcer Cleansing SOAPY WATER -Foul Odor after Cleansing Yes, Due to Product Use -Anesthetic Used 4% Lidocaine Solution #18 R Lat foot -Combined with other wound No -Current Size (cm) - Length 0.1 -Current Size (cm) - Width 0.1 -Current Size (cm) - Depth 0.1 -Total Square Cm 0.01 -Date of Last Picture (Recall this 06/23/21 field) -Photo Taken No -Epithelialization None Present -Tunneling No -Undermining/Tunneling No -Circular Undermining No -Exudate Amt Small -Exudate Type Serosanguineous -Wound Margin Distinct, Outline Attached -Granulation Amt Large (67-100%) -Granulation Quality Red -Slough/Fibrin No -Necrosis Amt None Present (0 %) -Texture (Natacha-wound Skin Appearance) Assessed,Callus ,Scarring -Moisture (Natacha-wound Skin Appearance) Assessed,Dry/ Scaly -Color (Natacha-wound Skin Appearance) Assessed -Temperature (Natacha-wound Skin No Abnormality Appearance) (Pt Warm) -Tenderness on Palpation (Natacha-wound No Skin Appearance) -Ulcer Cleansing SOAPY WATER -Foul Odor after Cleansing No -Anesthetic Used 4% Lidocaine Solution #16 L Plantar foot -Combined with other wound No -Current Size (cm) - Length 2.4 -Current Size (cm) - Width 2 -Current Size (cm) - Depth 0.7 -Total Square Cm 4.8 -Date of Last Picture (Recall this 06/23/21 field) -Photo Taken Yes -Epithelialization None Present -Tunneling No -Undermining/Tunneling Yes -Undermining/Tunneling Starts (O'clock 5 ) -Undermining/Tunneling Ends (O'clock) 1 -Maximum Distance (cm) 0.8 -Circular Undermining No -Exudate Amt Medium -Exudate Type Serosanguineous -Wound Margin Distinct, Outline Attached -Granulation Amt Large (67-100%) -Granulation Quality Red -Slough/Fibrin Yes -Necrosis Amt Small (1-33%) -Necrotic Tissue Type Adherent Slough -Texture (Natacha-wound Skin Appearance) Assessed,Callus ,Scarring -Moisture (Natacha-wound Skin Appearance) Assessed,Dry/ Scaly -Color (Natacha-wound Skin Appearance) Assessed -Temperature (Natacha-wound Skin No Abnormality Appearance) (Pt Warm) -Tenderness on Palpation (Natacha-wound No Skin Appearance) -Ulcer Cleansing SOAPY WATER -Foul Odor after Cleansing No -Anesthetic Used 4% Lidocaine Solution Lower Limb Edema Present Yes Right Calf (cm) 42 Right Ankle (cm) 24 Left Calf (cm) 41.2 Left Ankle (cm) 24.5 Additional Wound Wound debrided: Plantar foot Laterality: Left Wound Grade/Stage: Freedman 1 Type of Debridement: Excisional debridement Anesthesia Used: 4% Lidocaine Solution Depth: in the subcutaneous layer Percentage of wound debrided: 100 Instrument Used: 3mm curette Tissue Removed: Includes fibrous, devitalized, biofilm, callus and slough tissue Severity: Fat Layer Exposed Amount of bleeding with debridement: Mild Bleeding Controlled with: Pressure Patient tolerated procedure: Patient tolerated procedure well Assessment/Plan Assessment/Plan (1) Non-pressure chronic ulcer of other part of left foot with fat layer exposed: CODE(S): L97.522 - Non-pressure chronic ulcer of other part of left foot with fat layer exposed (2) 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: CODE(S): L97.312 - Non-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 (3) Non-pressure chronic 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 layer exposed: CODE(S): L97.512 - Non-pressure chronic 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 layer exposed (4) Type 2 diabetes mellitus with diabetic polyneuropathy: CODE(S): E11.42 - Type 2 diabetes mellitus with diabetic polyneuropathy QUALIFIERS: Diabetes mellitus long term acute care registered nurse insulin use: with long term acute care registered nurse use Qualified Code(s): E11.42 - Type 2 diabetes mellitus with diabetic polyneuropathy; Z79.4 - intermission coordinator (current) use of insulin (5) Delayed wound healing: CODE(S): T14.8XXD - Other injury of unspecified body region, subsequent encounter (6) Charcot's joint of right foot: CODE(S): M14.671 - Charcot's joint, right ankle and foot (7) Charcot's joint of left foot: CODE(S): M14.672 - Charcot's joint, left ankle and foot (8) Debility: CODE(S): R53.81 - Other malaise (9) Bilateral edema of lower extremity: CODE(S): R60.0 - Localized edema (10) Chronic foot pain: CODE(S): M79.673 - Pain in unspecified foot; G89.29 - Other chronic pain PLAN: Patient seen and examined. New wound noted to right lateral ankle and worsening of left plantar foot wound Patient relates that she had a bad morning and she was unable to come to her appointment last week because of that. He was also not able to give us a call to let us know what is happening. Patient relates that she has had a fall out of bed as well as a fall after falling asleep on the toilet that caused her right foot to twist and she believes that is how she got her lateral ankle ulceration to open. She relates that she has a appointment with her primary care provider in a couple weeks. Discussed that it can be important to work with them in order to obtain better blood sugar control and overall health improvement in order to heal. Discussed the importance of nutrition and discussed possible online merchandising manager referral patient deferred. Discussed getting x- ray on her right foot after her fall patient declined. There is a moderate amount of callus buildup noted to the periulcerative sites. Discussed to patient that this shows that she has been putting weight through them. Patient does not seem to understand this concept. As per discussion last week patient brought total contact cast boot as this area only available offloading foot care option that she says she still has access to. Patient asked to have the bottom of the boot modified in order to offload the ulcer site so she can use it to scoot herself around in her wheelchair without disturbing the wound site. Discussed that this is optimal as this boot is not designed for walking without the cast on. Patient would still like to try. Boot was previously modified for patient to attempt this. Discussed bringing in cam boot at home in order for those to be modified offload ulcer sites as well as these are more optimal for weightbearing purposes. Patient believes she knows what these are at home and will try to remember to bring them in. ulcerations were debrided after verbal consent was obtained by the patient. The right plantar foot ulceration was approved for TheraSkin graft application. As patient has been unable to keep the graft in place time we will take a break from the application. Patient was unable to obtain the Dakin's as discussed last visit. Patient seemed understand that she would have to go to the pharmacy be this up as an [id number] medication. Patient is also did not contact the wound care center for this clarification. Her home health care nurse did call the wound care center where this information was relayed to them the patient was still not able to obtain the Dakin's solution. Patient has since been approved for a snap VAC to her right plantar ulceration. We will try this instead this week. This was applied. Wounds to right lateral foot and ankle and left plantar foot patient to continue fibracol dressing every other day. Cover with dry sterile dressing bilaterally. She is reassured no signs of infection are noted today. Patient is to remain strict nonweightbearing to the right foot. Patient can transfer by putting weight through her toe or heel on the left foot. It is noted she is already been undergoing a comprehensive wound healing plan and has delayed and nonhealing. She has had prior bone biopsies, wound culture, skin grafts, total contact cast, multiple hospital visits, surgeries, and intervention with infectious disease. Try to optimize nutrition by offering referral for nutrition patient declined. She has suspected adequate vascular perfusion for healing per her recent noninvasive vascular studies 09/01/2020 with triphasic waveforms noted. Patient's hemoglobin A1c was 13.1% on 12/29/2020. Offloading strongly recommended. Optimal blood sugar control and increased protein intake also discussed. Being forced to stay off her feet at the SNF has allowed the most improvement noted in these wounds in a long time. Since being home wounds have noted to have worsening likely due to her being more active on her feet along with her not getting the nutritional support she needs at home to control her blood sugar and optimize her for healing. All questions were answered and she was advised to call with any further questions or concerns. All signs and symptoms of local and systemic infection were discussed with the patient today. Follow up in 1 week. This note was generated with [employer] dictation software. It may contain incorrect words, spelling, and punctuation that were not noted in checking the note before signing.
[2021-06-26 12:02] VITALS: BP 171/74; PULSE 94; RESP 18; TEMP 36.7; BMI 32.3
--- NOTE | 2021-06-30 09:04 | PN.PCM_ITS ---
History of Present Illness Date of Service: 06/30/21 Chief Complaint: right foot ulcer left foot ulcer History of Wound: Patient is a 55-year-old female who presents to the clinic for bilateral foot ulcers. Patient has been dealing with wounds to bilateral lower extremities for years. Patient has noted noncompliance including going out of the country or on vacation with wounds without care. Patient has significant delayed healing and foot deformities contributing to these ulcerations. Patient states struggled to understand what she is doing is contributing to her lack of wound healing. Patient was recently at the hospital for gastroenteritis 03/03/21. Patient also noted that time to have worsening right foot with acute Charcot foot noted on x- ray and MRI. Patient was also noted to have multiple new blisters formed during hospital stay with wounds that remain. It was determined during hospital visit the patient was not stable not to go to the operating room. Bedside debridements and cultures were obtained. Patient was started on Levaquin per infectious disease. Patient is to continue wound care and has since followed up with the wound care center. Right foot wound culture from 03/06/2021 with significant for bacterial growth of staph aureus and strep group C. Left foot wound did not appear clinically infected but was polymicrobial upon culture on 03/05/2021. MRI obtained of the right foot was negative for osteomyelitis but showed small focal abscess to lateral plantar foot. Patient is no longer at the SNF facility and has had regression of wound since returning home Progress of Wound: Stable right plantar foot, worsening left plantar foot, improvement to right lateral foot, new wound to right lateral ankle Subjective Subjective Patient seen and examined resting comfortably. Patient denies any new pedal complaints. Patient denies any nausea, fever, chills, chest pain, shortness of breath, cough, streaking, purulence, vomiting. Objective Data Objective Data Vital Signs: Vital Signs Temp Pulse Resp BP 98.1 F 94 18 171/74 H 06/26/21 12:02 06/26/21 12:02 06/26/21 12:02 06/26/21 12:02 Oxygen Delivery Method Room Air Weight: 91.138 kg Body Mass Index (BMI) 32.3 Physical Exam Narrative Const alert General Appearance: cooperative, sleepy Extremity normal capillary refill and no calf tenderness General Extremity: no tenderness to palpation of joints or extremities and other findings Other Details: Capillary refill time less than 3 seconds noted to digits ; Negative for clubbing or cyanosis Skin General Skin Exam: atrophy and dry skin; Negative for ecchymosis, erythema, eschar, pallor or dermatitis Rashes: no rashes Wound Narrative: plantar left foot ulceration. Granular base. Mild maceration noted. Moderate periwound callus tissue noted. There is no erythema or edema or malodor or purulence or other suggestion signs of infection. Serous drainage noted. Plantar right foot ulceration is stable. Granular base. Mild maceration noted. Moderate periwound callus tissue noted. There is no erythema or edema or malodor or purulence or other suggestion signs of infection. Serosanguineous drainage noted. There is some tunneling noted at 10:00 that no longer communicates with the lateral foot wound Right lateral foot wound. Granular base. Mild maceration noted. Mild periwound callus tissue and maceration noted. There is no erythema or edema or malodor or purulence or other suggestion signs of infection. Serosanguineous drainage noted. Right lateral ankle ulceration. To level of fascia. No erythema or edema or malodor or purulence or other cyst signs suggestive of infection. Mild serosanguineous drainage noted. Surrounding scar tissue noted. 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 Charcot foot deformity noted bilaterally. Continued bilateral lower extremity edema noted. No calf tenderness negative Jaswinder and Nuñez sign. DP and PT are diminished bilaterally Neuromuscular Sensory Exam: extremities light-touch: decreased Motor Exam: strength abnormal other (4/5 to all pedal muscle groups) There is foot and Charcot deformities noted to bilateral feet with prominent plantar lateral feet collapse Psych Appearance: normal Debridement Note Debridement Note Wound debrided: Plantar foot Laterality: Left Wound Grade/Stage: Freedman 1 Type of Debridement: Excisional debridement Anesthesia Used: 4% Lidocaine Solution Depth: in the subcutaneous layer Percentage of wound debrided: 100 Instrument Used: 3mm curette Tissue Removed: includes fibrous, devitalized, biofilm, callus and slough tissue Severity: Fat Layer Exposed Amount of bleeding with debridement: Mild Bleeding Controlled with: Pressure Patient tolerated procedure: Patient tolerated procedure well Additional Wound Wound debrided: Plantar and lateral foot, lateral ankle Laterality: Right Wound Grade/Stage: Freedman 1 Type of Debridement: Excisional debridement Anesthesia Used: 4% Lidocaine Solution Depth: in the subcutaneous layer Percentage of wound debrided: 100 Instrument Used: 3mm curette Tissue Removed: Includes fibrous, devitalized, biofilm, callus and slough tissue Severity: Fat Layer Exposed Amount of bleeding with debridement: Mild Bleeding Controlled with: Pressure Patient tolerated procedure: Patient tolerated procedure well Assessment/Plan Assessment/Plan (1) Non-pressure chronic ulcer of other part of left foot with fat layer exposed: CODE(S): L97.522 - Non-pressure chronic ulcer of other part of left foot with fat layer exposed (2) 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: CODE(S): L97.312 - Non-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 (3) Non-pressure chronic 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 layer exposed: CODE(S): L97.512 - Non-pressure chronic 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 layer exposed (4) Type 2 diabetes mellitus with diabetic polyneuropathy: CODE(S): E11.42 - Type 2 diabetes mellitus with diabetic polyneuropathy QUALIFIERS: Diabetes mellitus care home insulin use: with tank terminal gauger use Qualified Code(s): E11.42 - Type 2 diabetes mellitus with diabetic polyneuropathy; Z79.4 - watermelon inspector (current) use of insulin (5) Delayed wound healing: CODE(S): T14.8XXD - Other injury of unspecified body region, subsequent encounter (6) Charcot's joint of right foot: CODE(S): M14.671 - Charcot's joint, right ankle and foot (7) Charcot's joint of left foot: CODE(S): M14.672 - Charcot's joint, left ankle and foot (8) Debility: CODE(S): R53.81 - Other malaise (9) Bilateral edema of lower extremity: CODE(S): R60.0 - Localized edema (10) Chronic foot pain: CODE(S): M79.673 - Pain in unspecified foot; G89.29 - Other chronic pain PLAN: Patient seen and examined. New wound noted to right lateral ankle and worsening of left plantar foot wound Patient relates that she had a bad morning and she was unable to come to her appointment last week because of that. He was also not able to give us a call to let us know what is happening. Patient relates that she has had a fall out of bed as well as a fall after falling asleep on the toilet that caused her right foot to twist and she believes that is how she got her lateral ankle ulceration to open. She relates that she has a appointment with her primary care provider in a couple weeks. Discussed that it can be important to work with them in order to obtain better blood sugar control and overall health improvement in order to heal. Discussed the importance of nutrition and discussed possible recep referral patient deferred. Discussed getting x-ray on her right foot after her fall patient declined. There is a moderate amount of callus buildup noted to the periulcerative sites. Discussed to patient that this shows that she has been putting weight through them. Patient does not seem to understand this concept. As per discussion last week patient brought total contact cast boot as this area only available offloading foot care option that she says she still has access to. Patient asked to have the bottom of the boot modified in order to offload the ulcer site so she can use it to scoot herself around in her wheelchair without disturbing the wound site. Discussed that this is optimal as this boot is not designed for walking without the cast on. Patient would still like to try. Boot was previously modified for patient to attempt this. Discussed bringing in cam boot at home in order for those to be modified offload ulcer sites as well as these are more optimal for weightbearing purposes. Patient believes she knows what these are at home and will try to remember to bring them in. ulcerations were debrided after verbal consent was obtained by the patient. The right plantar foot ulceration was approved for TheraSkin graft application. As patient has been unable to keep the graft in place time we will take a break from the application. Patient was unable to obtain the Dakin's as discussed last visit. Patient seemed understand that she would have to go to the pharmacy be this up as an [id number] medication. Patient is also did not contact the wound care center for this clarification. Her home health care nurse did call the wound care center where this information was relayed to them the patient was still not able to obtain the Dakin's solution. Patient has since been approved for a snap VAC to her right plantar ulceration. We will try this instead this week. This was applied. Wounds to right lateral foot and ankle and left plantar foot patient to continue fibracol dressing every other day. Cover with dry sterile dressing bilaterally. She is reassured no signs of infection are noted today. Patient is to remain strict nonweightbearing to the right foot. Patient can transfer by putting weight through her toe or heel on the left foot. It is noted she is already been undergoing a comprehensive wound healing plan and has delayed and nonhealing. She has had prior bone biopsies, wound culture, skin grafts, total contact cast, multiple hospital visits, surgeries, and intervention with infectious disease. Try to optimize nutrition by offering referral for nutrition patient declined. She has suspected adequate vascular perfusion for healing per her recent noninvasive vascular studies 09/01/2020 with triphasic waveforms noted. Patient's hemoglobin A1c was 13.1% on 12/29/2020. Offloading strongly recommended. Optimal blood sugar control and increased protein intake also discussed. Being forced to stay off her feet at the SNF has allowed the most improvement noted in these wounds in a long time. Since being home wounds have noted to have worsening likely due to her being more active on her feet along with her not getting the nutritional support she needs at home to control her blood sugar and optimize her for healing. All questions were answered and she was advised to call with any further questions or concerns. All signs and symptoms of local and systemic infection were discussed with the patient today. Follow up in 1 week. This note was generated with [employer] dictation software. It may contain incorrect words, spelling, and punctuation that were not noted in checking the note before signing.
[2021-07-03 09:14] VITALS: BP 167/89; PULSE 99; RESP 18; TEMP 36.1; BMI 32.3
== END 2021-07-09 23:59 ==
LOC: WC 09:00
PROVIDERS: PCP Family Medicine; Referring Provider Podiatrist; Visit Provider Podiatrist Foot & Ankle Surgery
DX: E11.621 Type 2 diabetes mellitus with foot ulcer (principal); L97.422 Non-pressure chronic ulcer of left heel and midfoot with fat layer exposed; L97.412 Non-pressure chronic ulcer of right heel and midfoot with fat layer exposed; L97.312 Non-pressure chronic ulcer of right ankle with fat layer exposed; R60.0 Localized edema; G89.29 Other chronic pain; E11.42 Type 2 diabetes mellitus with diabetic polyneuropathy; E11.610 Type 2 diabetes mellitus with diabetic neuropathic arthropathy; Z79.4 Long term (current) use of insulin; Z79.02 Long term (current) use of antithrombotics/antiplatelets; Z79.899 Other long term (current) drug therapy
CPT/HCPCS: 11042; 97605; 97607; 99203; 99212; G0463

== ENCOUNTER → 2021-07-07 09:41 | Outpatient (CLI) | payer MEDICARE, MEDICAID, SELFPAY ==
[2018-09-21 13:23] VITALS: BMI 29.3
[2021-07-07 11:00] LABS: Absolute Lymphocyte Count 0.83 X10^3/uL (0.83-4.51); Basophil# 0.03 X10^3/uL; Basophil% 0.3 % (0-1); Eosinophil# 0.16 X10^3/uL; Eosinophils% 1.9 % (0-5); Hematocrit 27.5 % (37-47); Hemoglobin 8.5 g/dL (12.0-15.0); Lymphocyte # 0.83 X10^3/ul (0.83-4.51); Lymphocyte % 9.6 % (19-41); Mean Corp Hgb Conc 30.9 g/dL (32-36); Mean Corpuscular Hgb 27.7 pg (27.0-32.0); Mean Corpuscular Volume 89.6 fL (81-99); Mean Platelet Vol. 10.8 fl (6.2-12.0); Monocyte# 0.55 X10^3/uL; Monocyte% 6.4 % (0-10); NRBC Flagged by Analyzer 0 % (0-5); Neutrophil # 7.01 X10^3/uL (2.7-7.7); Neutrophil % 81.5 % (47-70); Platelet Count 346 K/mm3 (150-450); RBC Distribution Width CV 12.6 % (11.6-14.6); RBC Distribution Width SD 41.1 fl (35.1-43.9); Red Blood Count 3.07 M/mm3 (4.2-5.4); White Blood Count 8.6 K/mm3 (4.4-11.0)
[2021-07-07 11:30] LABS: PTHIN 195.4 pg/mL (18.4-80.1)
[2021-07-07 11:59] LABS: ALB/GLOB Ratio 0.4 RATIO (0.9-2.4); AST(SGOT) 17 U/L (15-37); Alanine Aminotransfer ALT/SGPT 19 U/L (13-56); Albumin, Serum 2.1 g/dL (3.2-5.0); Alkaline Phosphatase 157 U/L (45-117); Anion Gap 10 (5-15); BUN 38 mg/dL (7-18); BUN/Creat Ratio 20.5 RATIO (10-20); Chloride 103 mmol/L (98-107); Cholesterol 281 mg/dL (200); Creatinine, Serum 1.85 mg/dL (0.55-1.02); EST Glomerular Filtration Rate 30 mL/min (>60); Est Glom Filt Rate - Afr Amer 36 mL/min (>60); Ferritin 37 ng/mL (8-252); Glucose 168 mg/dL (74-106); High Density Lipoprotein 50 mg/dL; Iron 34 ug/dL (50-170); Iron Binding Capacity,Total 275 ug/dL (250-450); PERCENT IRON SATURATION 12.4 % (15.0-55.0); Phosphorus 4.2 mg/dL (2.5-4.9); Potassium 4.5 mmol/L (3.5-5.1); Protein, Total 7.1 g/dL (6.4-8.2); Sodium Level 136 mmol/L (136-145); Triglycerides 150 mg/dL; Very Low Density Lipoprotein 30 mg/dL (5-40)
[2021-07-07 12:25] LABS: Protein, Urine (Random) 803.5 mg/dL (<11.9); Protein:Creat Ratio 6277 mg/g CRE (0-200)
[2021-07-07 12:31] LABS: Hemoglobin A1c 9.8 % (3.8-5.6)
[2021-07-07 13:12] LABS: 24HR. UA Prot. Total Volume 1600 mL
[2021-07-07 16:54] LABS: Urine Protein (24 Hour) 554.6 mg/dL (<11.9)
[2021-07-07 18:31] LABS: Creat.Clear Total Volume 1600 mL; Creatinine Clearance 29 ml/min (100-200); Creatinine Serum Creat 1.9 mg/dL (0.6-1.0); Creatinine Urine 48.4 mg/dL (NO RANGE EST.); EST Glomerular Filtration Rate 30 mL/min (>60); Est Glom Filt Rate - Afr Amer 36 mL/min (>60)
== END ==
PROVIDERS: PCP Family Medicine; Referring Provider Internal Medicine Nephrology; Visit Provider Internal Medicine Nephrology
DX: E11.22 Type 2 diabetes mellitus with diabetic chronic kidney disease (principal); N18.4 Chronic kidney disease, stage 4 (severe); E11.40 Type 2 diabetes mellitus with diabetic neuropathy, unspecified; E11.65 Type 2 diabetes mellitus with hyperglycemia; D50.9 Iron deficiency anemia, unspecified; E78.5 Hyperlipidemia, unspecified
CPT/HCPCS: 36415; 80053; 80061; 81050; 82043; 82570; 82575; 82728; 83036; 83540; 83550; 83970; 84100; 84156; 85025

== ENCOUNTER 2021-07-07 13:00 | Observation (INO) | payer MEDICARE, MEDICAID, SELFPAY ==
[2018-09-21 13:23] VITALS: BMI 29.3
[2021-07-07] VITALS (7 sets, daily range): BP systolic 130–152; BP diastolic 57–80; PULSE 81–94; RESP 16–18; TEMP 36.1–36.9; O2SAT 96–100; BMI 30.7; BMI 32.3
--- NOTE | 2021-07-07 14:06 | EKG12_ITS ---
Test Reason : CP Blood Pressure : / mmHG Vent. Rate : 092 BPM Atrial Rate : 092 BPM P-R Int : 156 ms QRS Dur : 094 ms QT Int : 388 ms P-R-T Axes : 054 020 076 degrees QTc Int : 479 ms Normal sinus rhythm Nonspecific T wave abnormality Prolonged QT Poor R wave progression Septal PA, age undetermined, cannot be excluded Abnormal ECG Confirmed by ELEN DELVALLE, FELTON ([id number]), clinical editor HARINI PHAM ([id number]) on 07/09/2021 8:42:55 AM Referred By: SABINA/SUNDAY Confirmed By:FELTON MYRICK MD
--- NOTE | 2021-07-07 14:18 | ED.VIS.CHEST ---
HPI History of Present Illness Chief Complaint: Chest Pain Detail of Chief Complaint: Chest pain early this morning and recurrence later this morning Informant: patient and family Onset/Context/Timing Onset: Hours Activity at onset: sudden and rest Timing: Intermittent Quality: Positive for Aching and Sharp Location: Left Parasternal Current Severity: Mild Maximum Severity: Moderate Worsened By: Nothing Relieved By: Nothing Associated Symptoms: Positive for - (Radiated to left scapula); Negative for Nausea, Vomiting, Diaphoresis, Dyspnea, Cough, Fever, Lightheadedness, Acid Reflux and Palpitations Narrative Narrative: Patient states she had outpatient labs done this morning. When she urinated she developed chest discomfort on the left side lasted 3045 minutes. She went home. After sitting in her chair she developed chest discomfort on the left side describes a dull sharp discomfort radiated to left scapula. There is no associated symptoms. This is not similar to the presentation she had with her 1st KS which was crushing chest pain and no discomfort or symptoms with her 2nd KS. She is still having pain. She states she cannot take aspirin because of her renal disease per her remote sensing technician. Therefore the aspirin was canceled. She is presently seen at wound clinic for lymphedema with diabetic foot ulcers. Per family member she has not been doing well for the past 3 weeks. Prior Similar Symptoms: No (With prior KS she had crushing chest pain the 1st time and 2nd time she had no chest discomfort.) Recent Illness/Hospitalization: Yes CVD Risk Factors: Positive for Hypertension, Diabetes and Hypercholesterolemia PE Risk Factors: Negative for Recent Travel/Surgery, Recent Immobilization and Prior DVT or PE TAD Risk Factors: Positive for Hypertension; Negative for Marfan's Syndrome and Family History [facility] Medical History Acquired varus deformity of left foot Acquired varus deformity of right foot Amputation foot, bilat Anemia Anxiety Anxiety and depression Atherosclerosis of [place] coronary artery of [place] heart without angina pectoris Back pain, chronic Chronic renal insufficiency Chronic ulcer of left foot with fat layer exposed Coronary artery disease Delayed wound healing Depression Diabetes Diabetic foot ulcer associated with type 2 diabetes mellitus Diabetic infection of left foot Diabetic polyneuropathy Diabetic ulcer of right ankle Essential (primary) hypertension GERD (gastroesophageal reflux disease) Hemoglobin A1c greater than 9.0% HLD (hyperlipidemia) Hypertension Ischemic cardiomyopathy Myocardial infarct Non-compliance Non-smoker Normocytic anemia NSTEMI (non-ST elevated myocardial infarction) (09/20/18) Obesity (BMI 30.0-34.9) Osteomyelitis of left foot RLS (restless legs syndrome) TIA (transient ischemic attack) Type 2 diabetes mellitus with diabetic polyneuropathy Ulcer of left foot with muscle involvement without evidence of necrosis Ulcer of right lower extremity with fat layer exposed Home Medications atorvastatin 80 mg tablet 80 mg PO QHS #90 tablet 11/30/19 [Rx Last Taken 07/05/21] insulin lispro 20 unit SC TIDCM 08/31/20 [History Last Taken 07/06/21] polysaccharide iron complex 150 mg PO DAILYCM 09/12/20 [History Last Taken 07/04/21] pramipexole 1.5 mg PO BID 09/12/20 [History Last Taken 07/06/21] clopidogrel 75 mg PO DAILY #0 tablet 01/01/21 [Rx Last Taken 07/05/21] insulin glargine 100 unit/mL (3 mL) subcutaneous pen 30 unit SC DAILY ml 01/20/21 [History Last Taken 07/04/21] nitroglycerin 0.4 mg sublingual tablet 0.4 mg SL Q5-15M PRN #25 tablet 01/20/21 [Rx Last Taken 07/07/21] isosorbide mononitrate 30 mg PO DAILY 03/03/21 [History Last Taken 07/04/21] gabapentin 300 mg PO TID 07/07/21 [History Last Taken 07/06/21] melatonin 20 mg PO DAILY 07/07/21 [History Last Taken 07/06/21] oxycodone 5 mg PO BID 07/07/21 [History Last Taken 07/06/21] paroxetine HCl 20 mg PO DAILY 07/07/21 [History Last Taken 07/06/21] Allergy/AdvReac Type Severity Reaction Status Date / Time oxycodone [From OxyContin] Allergy feels Verified 07/07/21 13:06 like I'm drowning Penicillins Allergy swelling Verified 07/07/21 13:06 in throat vancomycin Allergy Itching Verified 07/07/21 13:06 metronidazole AdvReac Nausea Verified 07/07/21 13:06 Family History Mother Diabetes CVA (cerebral vascular accident) Brother CAD (coronary artery disease) CABG X 3 Cancer testicular Diabetes Brother CAD (coronary artery disease) CABG X3 Diabetes Brother CAD (coronary artery disease) Stents Diabetes Sister CAD (coronary artery disease) CABG x 3 CVA (cerebral vascular accident) Diabetes Surgical History History of bilateral carpal tunnel release History of History of coronary artery stent placement (12/31/20) History of foot surgery History of rotator cuff surgery Social History (Updated 07/07/21 @ 14:[address] Devin Lincoln MD) household members: family Smoking Status: Unknown if ever smoked alcohol intake: never substance use type: does not use caffeine: Yes Type: carbonated beverages Number of servings: 2 ROS ROS ED Constitutional Constitutional ED: Denies chills, fever(s), subjective or sweats Eyes Eyes: Reports none ENT ENT ED: Denies ear pain, rhinorrhea or sore throat Cardiovascular Cardiovascular: Reports as per HPI; Denies orthopnea or paroxysmal nocturnal dyspnea Respiratory/Chest Respiratory/Chest: Denies cough, dyspnea, dyspnea on exertion, orthopnea or paroxysmal nocturnal dyspnea Gastrointestinal Gastrointestinal: Denies abdominal pain, constipation, diarrhea, melena, nausea or vomiting Genitourinary Genitourinary ED: Denies dysuria, hematuria or urinary frequency Musculoskeletal Musculoskeletal: Denies arthralgias, back pain, myalgias or neck pain Integumentary Reports other Details: Edema of legs due to lymphedema with diabetic foot ulcer on plantar surface of her feet ; Denies rash Neurologic Neurologic: Reports paresthesias and weakness; Denies headache(s) Psychiatric Psychiatric: Reports depression Endocrine Endocrinology: Denies polydipsia, polyphagia or polyuria Hematologic/Lymphatic Hematologic/Lymphatic: Denies easy bleeding or easy bruising EXAM Physical Exam Const Vital Signs: 07/07/21 13:01 07/07/21 14:16 07/07/21 15:35 Temperature 97.0 F L Temperature Source Temporal Pulse Rate 84 Respiratory Rate 16 Respiratory Effort Normal Non-Labored Blood Pressure 141/80 H Blood Pressure Mean 100 Pulse Ox 100 Oxygen Delivery Method Room Air Room Air Positive well nourished, well developed and obese General Appearance ED: well developed and other Appears ill, pale and responds appropriately but slow to response Nutritional Appearance: obese HEENT normocephalic and atraumatic Eyes PERRL and EOMs intact bilaterally General Eye ED: Yes pale conjunctiva; Negative for scleral icterus Neck no lymphadenopathy, supple and no JVD Chest Wall inspection of chest normal and palpation of chest normal Resp normal respiratory effort Effort and Inspection: respiratory distress Cardio regular rate, regular rhythm, S1 normal heart sound and S2 normal heart sound GI normal to inspection, nondistended, normoactive bowel sounds, soft to palpation and non-tender Back/Spine no CVA tenderness and no thoracic nor lumbar tenderness Cervical Spine: Negative for cervical spine tenderness Extremity Negative for normal to inspection General Extremety ED: Yes edema and pulses abnormal; Negative for tenderness General Extremity: edema and pulses abnormal Neuro oriented x3, CN's II-XII intact bilaterally and No no sensory deficits noted Sensorium / Orientation: awake Motor Exam: strength 5/5 throughout Psych mental status grossly normal Skin no rashes or lesions noted Heart Score History: Moderately Suspicious ECG: Nonspecific Repolarization Age: >45 - <65 years Risk Factors: >/= 3 Risk Factors or History of CAD Troponin: </= Normal Limit Score: 5 MDM MDM MDM Narrative Medical decision making narrative: Frontal diagnosis includes cardiac etiology versus noncardiac etiology. Noncardiac would be GI, biliary, pulmonary. Will obtain EKG and appropriate blood work. With a heart score of 5 hospitalist was paged for observation to PCU serial enzymes and provocative testing. Lab Data Attestation: I reviewed the patient's lab results. Lab results narrative: Patient has anemia, which is chronic. Creatinine is elevated which is chronic. Troponins elevated 23 however still within normal limits. Glucose is 245 with a normal CO2 and anion gap. Labs: Laboratory Results - last 24 hr 07/07/21 07/07/21 14:36 14:36 WBC 8.4 RBC 3.45 L Hgb 9.5 L Hct 31.3 L MCV 90.7 MCH 27.5 MCHC 30.4 L RDW Std Deviation 41.8 RDW Coeff of Fior 12.6 Plt Count 323 MPV 10.5 Immature Gran % (Auto) 0.200 Neut % (Auto) 79.6 H Lymph % (Auto) 11.7 L [place] % (Auto) 5.8 Eos % (Auto) 2.3 Baso % (Auto) 0.4 Absolute Neuts (auto) 6.7 Absolute Lymphs (auto) 0.98 Nucleated RBC % 0 Sodium 136 Potassium 4.6 Chloride 104 Carbon Dioxide 22.0 Anion Gap 10 BUN 38 H Creatinine 2.04 H Estim Creat Clear Calc 28.83 Est GFR (MDRD) Af Amer 32 L Est GFR (MDRD) Non-Af 27 L BUN/Creatinine Ratio 18.6 Glucose 245 H Calcium 8.9 Troponin I High Sens 23 Radiography Chest X-Ray - ED: 1 View (View chest x-ray was borderline cardiomegaly, cephalization findings consistent with mild congestive heart failure. Osseous structures appear normal. Mediastinum appears normal.) Diagnostic Testing: Radiology Impression Chest X-Ray 07/07/21 14:40 IMPRESSION: Findings suggestive of mild degree of vascular congestion. Electronically Signed: Ronnie Saavedra MD at 15:03 EDT , Service support , EKG Initial EKG: Attestation: I personally reviewed and interpreted this EKG as follows: Interpretation: Sinus Rhythm (Normal sinus rhythm with a ventricular rate 92. NV interval is 156 ms. QS duration 94 ms. QT duration 388 ms. QTc is 479 ms which is prolonged. There is also an ossific ST-T wave changes noted. [place] is normal.) Discharge Plan Dx/Rx/DC Orders Clinical Impression: Chest pain, Hyperglycemia due to type 2 diabetes mellitus, Stage 4 chronic kidney disease, Anemia due to chronic illness Disposition Disposition: Acute Care [facility]
[2021-07-07 14:39] LABS: Absolute Lymphocyte Count 0.98 X10^3/uL (0.83-4.51); Absolute Neutrophil Count 6.7 X10^3/uL (2.0-7.7); Basophil# 0.03 X10^3/uL; Basophil% 0.4 % (0-1); Eosinophil# 0.19 X10^3/uL; Eosinophils% 2.3 % (0-5); Hematocrit 31.3 % (37-47); Hemoglobin 9.5 g/dL (12.0-15.0); Lymphocyte # 0.98 X10^3/ul (0.83-4.51); Lymphocyte % 11.7 % (19-41); Mean Corp Hgb Conc 30.4 g/dL (32-36); Mean Corpuscular Hgb 27.5 pg (27.0-32.0); Mean Corpuscular Volume 90.7 fL (81-99); Mean Platelet Vol. 10.5 fl (6.2-12.0); Monocyte# 0.49 X10^3/uL; Monocyte% 5.8 % (0-10); NRBC Flagged by Analyzer 0 % (0-5); Neutrophil # 6.69 X10^3/uL (2.7-7.7); Neutrophil % 79.6 % (47-70); Platelet Count 323 K/mm3 (150-450); RBC Distribution Width CV 12.6 % (11.6-14.6); RBC Distribution Width SD 41.8 fl (35.1-43.9); Red Blood Count 3.45 M/mm3 (4.2-5.4); White Blood Count 8.4 K/mm3 (4.4-11.0)
--- NOTE | 2021-07-07 14:40 | RAD_ITS ---
STUDY: X-RAY CHEST REASON FOR EXAM: Female, 56 years old. Chest pain TECHNIQUE: Single AP portable view of the chest. COMPARISON: Comparison is made with prior study dated 03/06/2021. FINDINGS: EKG electrodes are seen. Elevation of the right hemidiaphragm. Pulmonary vascular congestion in keeping with a mild degree of CHF. There is borderline cardiomegaly. Normal mediastinum and elvie. Normal visualized pulmonary arteries. Normal visualized aortic arch and descending thoracic aorta. Normal visualized thoracic spine. Normal visualized ribs, clavicles, and shoulders. There is no demonstrated abnormality of the visualized soft tissue structures of the upper abdomen. RAD/Chest 1 View (Portable) IMPRESSION: Findings suggestive of mild degree of vascular congestion. Electronically Signed: Ronnie Saavedra MD at 15:03 EDT , Service support ,
[2021-07-07 14:55] LABS: Anion Gap 10 (5-15); BUN 38 mg/dL (7-18); BUN/Creat Ratio 18.6 RATIO (10-20); Calcium,Total 8.9 mg/dL (8.5-10.1); Chloride 104 mmol/L (98-107); Creatinine, Serum 2.04 mg/dL (0.55-1.02); EST Glomerular Filtration Rate 27 mL/min (>60); Est Glom Filt Rate - Afr Amer 32 mL/min (>60); Estimated Creatinine Clearance 28.83 ml/min; Glucose 245 mg/dL (74-106); Potassium 4.6 mmol/L (3.5-5.1); Sodium Level 136 mmol/L (136-145); Troponin-I HS 23 pg/mL (3.0-54.0)
--- NOTE | 2021-07-07 15:42 | HP.PCM.HOS_ITS ---
Documented by User: Valencia Peterson NP, MI[employer]GRAPHICS SERVICES SUPERVISOR-C 07/07/21 16:20 HPI - General General Date of Admission: 07/07/21 HPI Narrative DIONY ROCHA, is a 56 F who presents to the emergency room due to chest pain. Patient states she came to the hospital lab this morning to give a urine sample for her kidney doctor and developed chest pain. She describes a dull pain on the left side of her chest which radiated to her back. She denies pain radiation to her jaw or arm. Denies nausea, diaphoresis. Reports shortness of breath with episode of chest pain. She took a nitro without improvement of symptoms. She states with her first heart attack she had significant chest pressure, feeling like an elephant was sitting on her chest. She states prior to her second stent, she was asymptomatic. Upon evaluation in emergency room, patient is chest pain-free. She has a past medical history of CAD with history of PCI, chronic heart failure with preserved ejection fraction, chronic kidney disease stage IV, type 2 diabetes mellitus with polyneuropathy, chronic norm ocytic anemia, hypertension, hyperlipidemia, Charcot feet. [facility] Medical History Acquired varus deformity of left foot Acquired varus deformity of right foot Amputation foot, bilat Anemia Anxiety Anxiety and depression Atherosclerosis of [place] coronary artery of [place] heart without angina pectoris Back pain, chronic Chronic renal insufficiency Chronic ulcer of left foot with fat layer exposed Coronary artery disease Delayed wound healing Depression Diabetes Diabetic foot ulcer associated with type 2 diabetes mellitus Diabetic infection of left foot Diabetic polyneuropathy Diabetic ulcer of right ankle Essential (primary) hypertension GERD (gastroesophageal reflux disease) Hemoglobin A1c greater than 9.0% HLD (hyperlipidemia) Hypertension Ischemic cardiomyopathy Myocardial infarct Non-compliance Non-smoker Normocytic anemia NSTEMI (non-ST elevated myocardial infarction) (09/20/18) Obesity (BMI 30.0-34.9) Osteomyelitis of left foot RLS (restless legs syndrome) TIA (transient ischemic attack) Type 2 diabetes mellitus with diabetic polyneuropathy Ulcer of left foot with muscle involvement without evidence of necrosis Ulcer of right lower extremity with fat layer exposed Home Medications atorvastatin 80 mg tablet 80 mg PO QHS #90 tablet 11/30/19 [Rx Last Taken 07/05/21] insulin lispro 20 unit SC TIDCM 08/31/20 [History Last Taken 07/06/21] polysaccharide iron complex 150 mg PO DAILYCM 09/12/20 [History Last Taken 07/04/21] pramipexole 1.5 mg PO BID 09/12/20 [History Last Taken 07/06/21] clopidogrel 75 mg PO DAILY #0 tablet 01/01/21 [Rx Last Taken 07/05/21] insulin glargine 100 unit/mL (3 mL) subcutaneous pen 30 unit SC DAILY ml 01/20/21 [History Last Taken 07/04/21] nitroglycerin 0.4 mg sublingual tablet 0.4 mg SL Q5-15M PRN #25 tablet 01/20/21 [Rx Last Taken 07/07/21] isosorbide mononitrate 30 mg PO DAILY 03/03/21 [History Last Taken 07/04/21] gabapentin 300 mg PO TID 07/07/21 [History Last Taken 07/06/21] melatonin 20 mg PO DAILY 07/07/21 [History Last Taken 07/06/21] oxycodone 5 mg PO BID 07/07/21 [History Last Taken 07/06/21] paroxetine HCl 20 mg PO DAILY 07/07/21 [History Last Taken 07/06/21] Allergy/AdvReac Type Severity Reaction Status Date / Time oxycodone [From OxyContin] Allergy feels Verified 07/07/21 13:06 like I'm drowning Penicillins Allergy swelling Verified 07/07/21 13:06 in throat vancomycin Allergy Itching Verified 07/07/21 13:06 metronidazole AdvReac Nausea Verified 07/07/21 13:06 Family History (Reviewed 07/07/21 @ 16:13 by Valencia Peterson MICROGRAPHICS SERVICES SUPERVISOR, MI[employer]GRAPH[employer] SERVICES SUPERVISOR-C) Mother Diabetes CVA (cerebral vascular accident) Brother CAD (coronary artery disease) CABG X 3 Cancer testicular Diabetes Brother CAD (coronary artery disease) CABG X3 Diabetes Brother CAD (coronary artery disease) Stents Diabetes Sister CAD (coronary artery disease) CABG x 3 CVA (cerebral vascular accident) Diabetes Surgical History (Reviewed 07/07/21 @ 16:14 by Valencia Peterson MICROGRAPHICS SERVICES SUPERVISOR, MICROGRAPHICS SERVICES SUPERVISOR-C) History of bilateral carpal tunnel release History of History of coronary artery stent placement (12/31/20) History of foot surgery History of rotator cuff surgery Social History (Updated 07/07/21 @ 16:14 by Valencia Peterson NP, MI[employer]GRAPH[employer] SERVICES SUPERVISOR-C) household members: family Smoking Status: Never smoker alcohol intake: never substance use type: does not use caffeine: Yes Type: carbonated beverages Number of servings: 2 ROS Constitutional Constitutional: Denies change in weight, chills, fatigue, fever(s) or weakness Cardiovascular Cardiovascular: Reports chest pain; Denies edema, lightheadedness, palpitations or syncope Respiratory/Chest Respiratory/Chest: Reports other Details: Shortness of breath with chest pain, resolved ; Denies cough, dyspnea, productive cough, shortness of breath at rest, shortness of breath with exertion or wheezing Gastrointestinal Gastrointestinal: Denies abdominal pain, constipation, diarrhea, nausea or vomiting Genitourinary Genitourinary: Denies burning urination, difficulty urinating, dysuria, hematuria, urinary frequency, urinary incontinence or urinary urgency Musculoskeletal Musculoskeletal: Denies back pain, joint pain or muscle weakness Integumentary Integumentary: Denies erythema, lesions, rash or wounds Neurologic Neurologic: Denies abnormal speech, confusion, dizziness, focal weakness, numbness, paresthesias, seizure-like activity or syncope Psychiatric Psychiatric: Denies anxiety or depression Hematologic/Lymphatic Hematologic/Lymphatic: Denies anemia, easy bleeding or easy bruising Allergic/Immunologic Allergic/Immunologic: Denies hives or asthma Vital Signs Vital Signs Vital Signs: 07/07/21 13:01 07/07/21 14:16 07/07/21 15:35 Temperature 97.0 F L Temperature Source Temporal Pulse Rate 84 Respiratory Rate 16 Respiratory Effort Normal Non-Labored Blood Pressure 141/80 H Blood Pressure Mean 100 Pulse Ox 100 Oxygen Delivery Method Room Air Room Air Weight Weight: 190 lb Body Mass Index (BMI) 30.7 Physical Exam Const alert, oriented x3 and no apparent distress Orientation / Consciousness: awake, oriented to person, oriented to place and oriented to time Nutritional Appearance: obese HEENT normocephalic and moist oral mucous membranes Eyes PERRL, EOMs intact bilaterally and conjunctivae normal Neck no lymphadenopathy Resp normal respiratory effort and clear to auscultation bilaterally Cardio regular rate, regular rhythm and no murmurs Peripheral Pulses: pulses 2+ throughout GI normal to inspection, nondistended, normoactive bowel sounds, non-tender and non-distended Extremity normal to inspection Skin no rashes or lesions noted Skin Narrative: Chronic bilateral foot wounds, not visualized at this time. Charcot feet. Lesions: no lesions Rashes: no rashes Trauma: no lacerations or abrasions Neuro CN's II-XII intact bilaterally, no focal motor deficits, no sensory deficits noted and deep tendon reflexes 2+ bilaterally Psych mental status grossly normal and affect normal Results Lab / Micro Data Result Diagrams: 07/07/21 14:36 07/07/21 14:36 Labs: Laboratory Results - last 24 hr 07/07/21 14:36: WBC 8.4, RBC 3.45 L, Hgb 9.5 L, Hct 31.3 L, MCV 90.7, MCH 27.5, MCHC 30.4 L, RDW Std Deviation 41.8, RDW Coeff of Fior 12.6, Plt Count 323, MPV 10.5, Immature Gran % (Auto) 0.200, Neut % (Auto) 79.6 H, Lymph % (Auto) 11.7 L, [place] % (Auto) 5.8, Eos % (Auto) 2.3, Baso % (Auto) 0.4, Absolute Neuts (auto) 6.7, Absolute Lymphs (auto) 0.98, Nucleated RBC % 0 07/07/21 14:36: Sodium 136, Potassium 4.6, Chloride 104, Carbon Dioxide 22.0, Anion Gap 10, BUN 38 H, Creatinine 2.04 H, Estim Creat Clear Calc 28.83, Est GFR (MDRD) Af Amer 32 L, Est GFR (MDRD) Non-Af 27 L, BUN/Creatinine Ratio 18.6, Glucose 245 H, Calcium 8.9, Troponin I High Sens 23 Micro: Microbiology 07/07/21 15:10 Nasal Secretion SARS-CoV-2 Antigen (Rapid) - Final Radiology Impression Chest X-Ray 07/07/21 14:40 IMPRESSION: Findings suggestive of mild degree of vascular congestion. Electronically Signed: Ronnie Saavedra MD at 15:03 EDT , Service support , Assessment & Plan Assessment/Plan (1) Chest pain: PLAN: 1. Chest pain-atypical. Initial troponin negative. Trend enzymes. Patient states she is not able to take aspirin due to chronic kidney disease. Plan for stress test in a.m. if enzymes remain negative. 2. CAD with history of PCI to mid and distal LAD-on Plavix, statin, isosorbide. 3. Chronic heart failure with preserved ejection fraction-echocardiogram December 2020 demonstrated an EF of 55%, stage I diastolic dysfunction. 4. Type 2 diabetes mellitus with [id number] with sliding scale in sulin. Continue home insulin regimen. Continue gabapentin. 5. Chronic kidney disease stage IV-follows with nephrology, Dr. Mancilla. 6. Chronic normocytic anemia/anemia of chronic disease- stable, trend CBC. 7. Hypertension-stable, continue isosorbide. 8. Hyperlipidemia-continue statin. 9. Chronic bilateral plantar foot ulcerations/Charcot feet-follows with podiatry. Wound RN consult. Follows at wound center as well. DVT prophylaxis-Heparin subcu This patient was seen by BRIAN Mathews under the supervision of Dr. Steven. Documented by User: Dr. Annie Steven MD 07/07/21 17:51 HPI - General General Date of Admission: 07/07/21 [facility] Medical History Acquired varus deformity of left foot Acquired varus deformity of right foot Amputation foot, bilat Anemia Anxiety Anxiety and depression Atherosclerosis of [place] coronary artery of [place] heart without angina pectoris Back pain, chronic Chronic renal insufficiency Chronic ulcer of left foot with fat layer exposed Coronary artery disease Delayed wound healing Depression Diabetes Diabetic foot ulcer associated with type 2 diabetes mellitus Diabetic infection of left foot Diabetic polyneuropathy Diabetic ulcer of right ankle Essential (primary) hypertension GERD (gastroesophageal reflux disease) Hemoglobin A1c greater than 9.0% HLD (hyperlipidemia) Hypertension Ischemic cardiomyopathy Myocardial infarct Non-compliance Non-smoker Normocytic anemia NSTEMI (non-ST elevated myocardial infarction) (09/20/18) Obesity (BMI 30.0-34.9) Osteomyelitis of left foot RLS (restless legs syndrome) TIA (transient ischemic attack) Type 2 diabetes mellitus with diabetic polyneuropathy Ulcer of left foot with muscle involvement without evidence of necrosis Ulcer of right lower extremity with fat layer exposed Home Medications atorvastatin 80 mg tablet 80 mg PO QHS #90 tablet 11/30/19 [Rx Last Taken 07/05/21] insulin lispro 20 unit SC TIDCM 08/31/20 [History Last Taken 07/06/21] polysaccharide iron complex 150 mg PO DAILYCM 09/12/20 [History Last Taken 07/04/21] pramipexole 1.5 mg PO BID 09/12/20 [History Last Taken 07/06/21] clopidogrel 75 mg PO DAILY #0 tablet 01/01/21 [Rx Last Taken 07/05/21] insulin glargine 100 unit/mL (3 mL) subcutaneous pen 30 unit SC DAILY ml 01/20/21 [History Last Taken 07/04/21] nitroglycerin 0.4 mg sublingual tablet 0.4 mg SL Q5-15M PRN #25 tablet 01/20/21 [Rx Last Taken 07/07/21] isosorbide mononitrate 30 mg PO DAILY 03/03/21 [History Last Taken 07/04/21] gabapentin 300 mg PO TID 07/07/21 [History Last Taken 07/06/21] melatonin 20 mg PO DAILY 07/07/21 [History Last Taken 07/06/21] oxycodone 5 mg PO BID 07/07/21 [History Last Taken 07/06/21] paroxetine HCl 20 mg PO DAILY 07/07/21 [History Last Taken 07/06/21] Allergy/AdvReac Type Severity Reaction Status Date / Time oxycodone [From OxyContin] Allergy feels Verified 07/07/21 13:06 like I'm drowning Penicillins Allergy swelling Verified 07/07/21 13:06 in throat vancomycin Allergy Itching Verified 07/07/21 13:06 metronidazole AdvReac Nausea Verified 07/07/21 13:06 Family History (Reviewed 07/07/21 @ 16:13 by Valencia Peterson MICROGRAPHICS SERVICES SUPERVISOR, MICROGRAPHICS SERVICES SUPERVISOR-C) Mother Diabetes CVA (cerebral vascular accident) Brother CAD (coronary artery disease) CABG X 3 Cancer testicular Diabetes Brother CAD (coronary artery disease) CABG X3 Diabetes Brother CAD (coronary artery disease) Stents Diabetes Sister CAD (coronary artery disease) CABG x 3 CVA (cerebral vascular accident) Diabetes Surgical History (Reviewed 07/07/21 @ 16:14 by Valencia Peterson MICROGRAPHICS SERVICES SUPERVISOR, MICROGRAPHICS SERVICES SUPERVISOR-C) History of bilateral carpal tunnel release History of History of coronary artery stent placement (12/31/20) History of foot surgery History of rotator cuff surgery Social History (Updated 07/07/21 @ 16:14 by Valencia Peterson MICROGRAPHICS SERVICES SUPERVISOR, MICROGRAPHICS SERVICES SUPERVISOR-C) household members: family Smoking Status: Never smoker alcohol intake: never substance use type: does not use caffeine: Yes Type: carbonated beverages Number of servings: 2 Results Lab / Micro Data Result Diagrams: 07/07/21 14:36 07/07/21 14:36 Charges/Coding Addendum Addendum: This patient was seen in conjunction with Valencia Peterson. I have independently interviewed and examined the patient and reviewed pertinent histo rical, laboratory, and other data. I have reviewed her note and concur with her documentation 56-year-old with past medical history of CKD stage IV, type II DM complicated by polyneuropathy, chronic ulcers of the foot, Charcot foot who comes in with complaints of chest pain that was ongoing for about 2 days. Patient had chest pain ongoing, substernal, dull, radiates to her back. She denied any diaphoresis or nausea or vomiting. Patient's admitting EKG showed no acute ST-T changes. Her troponins are negative Physical Exam: Gen: Comfortable, not pale, not jaundiced CVS:HS I +II, regular, no murmurs RESP: Diminished at lung bases GI: BS present and normal, soft, nontender, no palpable organs EXT: Bilateral leg edema +2, 12 hours on, 12 hours off ASSESSMENT: 1. Chest pain 2. FELI on CKD stage IV 3. Type II DM 4. Chronic CHF with preserved EF, EF 55% 5. Anemia of chronic disease 6. Hypertension Plan: Consult nephrology Stress test in a.m. Continue home insulin and other home medications Blood glucose checks with insulin sliding scale I discussed and explained in details the various types of CODE STATUS-full code, DNR CCA, DNR CC. Patient chose full code Time spent discussing CODE STATUS 18 minutes Visit Charges Inpatient E&M: 29349 Init Hosp L3 Procedures Hospitalists Procedures: 74674 Advncd Care Plan 30 Min
--- NOTE | 2021-07-07 15:46 | NURSING ---
DR DAR JERNIGAN
--- NOTE | 2021-07-07 15:53 | HP.PCM.HOS_ITS ---
HPI - General HPI Narrative DIONY ROCHA, is a 56 F who presents ON LICENSE OF [facility] Medical History Acquired varus deformity of left foot Acquired varus deformity of right foot Amputation foot, bilat Anemia Anxiety Anxiety and depression Atherosclerosis of [place] coronary artery of [place] heart without angina pectoris Back pain, chronic Chronic renal insufficiency Chronic ulcer of left foot with fat layer exposed Coronary artery disease Delayed wound healing Depression Diabetes Diabetic foot ulcer associated with type 2 diabetes mellitus Diabetic infection of left foot Diabetic polyneuropathy Diabetic ulcer of right ankle Essential (primary) hypertension GERD (gastroesophageal reflux disease) Hemoglobin A1c greater than 9.0% HLD (hyperlipidemia) Hypertension Ischemic cardiomyopathy Myocardial infarct Non-compliance Non-smoker Normocytic anemia NSTEMI (non-ST elevated myocardial infarction) (09/20/18) Obesity (BMI 30.0-34.9) Osteomyelitis of left foot RLS (restless legs syndrome) TIA (transient ischemic attack) Type 2 diabetes mellitus with diabetic polyneuropathy Ulcer of left foot with muscle involvement without evidence of necrosis Ulcer of right lower extremity with fat layer exposed Home Medications atorvastatin 80 mg tablet 80 mg PO QHS #90 tablet 11/30/19 [Rx Last Taken 07/05/21] insulin lispro 20 unit SC TIDCM 08/31/20 [History Last Taken 07/06/21] polysaccharide iron complex 150 mg PO DAILYCM 09/12/20 [History Last Taken 07/04/21] pramipexole 1.5 mg PO BID 09/12/20 [History Last Taken 07/06/21] clopidogrel 75 mg PO DAILY #0 tablet 01/01/21 [Rx Last Taken 07/05/21] insulin glargine 100 unit/mL (3 mL) subcutaneous pen 30 unit SC DAILY ml 01/20/21 [History Last Taken 07/04/21] nitroglycerin 0.4 mg sublingual tablet 0.4 mg SL Q5-15M PRN #25 tablet 01/20/21 [Rx Last Taken 07/07/21] isosorbide mononitrate 30 mg PO DAILY 03/03/21 [History Last Taken 07/04/21] gabapentin 300 mg PO TID 07/07/21 [History Last Taken 07/06/21] melatonin 20 mg PO DAILY 07/07/21 [History Last Taken 07/06/21] oxycodone 5 mg PO BID 07/07/21 [History Last Taken 07/06/21] paroxetine HCl 20 mg PO DAILY 07/07/21 [History Last Taken 07/06/21] Allergy/AdvReac Type Severity Reaction Status Date / Time oxycodone [From OxyContin] Allergy feels Verified 07/07/21 13:06 like I'm drowning Penicillins Allergy swelling Verified 07/07/21 13:06 in throat vancomycin Allergy Itching Verified 07/07/21 13:06 metronidazole AdvReac Nausea Verified 07/07/21 13:06 Family History Mother Diabetes CVA (cerebral vascular accident) Brother CAD (coronary artery disease) CABG X 3 Cancer testicular Diabetes Brother CAD (coronary artery disease) CABG X3 Diabetes Brother CAD (coronary artery disease) Stents Diabetes Sister CAD (coronary artery disease) CABG x 3 CVA (cerebral vascular accident) Diabetes Surgical History History of bilateral carpal tunnel release History of History of coronary artery stent placement (12/31/20) History of foot surgery History of rotator cuff surgery Social History (Updated 07/07/21 @ 14:[address] Devin Lincoln MD) household members: family Smoking Status: Unknown if ever smoked alcohol intake: never substance use type: does not use caffeine: Yes Type: carbonated beverages Number of servings: 2 Vital Signs Vital Signs Vital Signs: 07/07/21 13:01 07/07/21 14:16 07/07/21 15:35 Temperature 97.0 F L Temperature Source Temporal Pulse Rate 84 Respiratory Rate 16 Respiratory Effort Normal Non-Labored Blood Pressure 141/80 H Blood Pressure Mean 100 Pulse Ox 100 Oxygen Delivery Method Room Air Room Air Weight Weight: 86.183 kg Body Mass Index (BMI) 30.7 Results Lab / Micro Data Result Diagrams: 07/07/21 14:36 07/07/21 14:36 Labs: Laboratory Results - last 24 hr 07/07/21 14:36: WBC 8.4, RBC 3.45 L, Hgb 9.5 L, Hct 31.3 L, MCV 90.7, MCH 27.5, MCHC 30.4 L, RDW Std Deviation 41.8, RDW Coeff of Fior 12.6, Plt Count 323, MPV 10.5, Immature Gran % (Auto) 0.200, Neut % (Auto) 79.6 H, Lymph % (Auto) 11.7 L, [place] % (Auto) 5.8, Eos % (Auto) 2.3, Baso % (Auto) 0.4, Absolute Neuts (auto) 6.7, Absolute Lymphs (auto) 0.98, Nucleated RBC % 0 07/07/21 14:36: Sodium 136, Potassium 4.6, Chloride 104, Carbon Dioxide 22.0, Anion Gap 10, BUN 38 H, Creatinine 2.04 H, Estim Creat Clear Calc 28.83, Est GFR (MDRD) Af Amer 32 L, Est GFR (MDRD) Non-Af 27 L, BUN/Creatinine Ratio 18.6, Glucose 245 H, Calcium 8.9, Troponin I High Sens 23 Micro: Microbiology 07/07/21 15:10 Nasal Secretion SARS-CoV-2 Antigen (Rapid) - Final Radiology Impression Chest X-Ray 07/07/21 14:40 IMPRESSION: Findings suggestive of mild degree of vascular congestion. Electronically Signed: Ronnie Saavedra MD at 15:03 EDT , Service support ,
--- NOTE | 2021-07-07 15:53 | NURSING ---
PCU OBS DAR PAYNE
[2021-07-07 17:16] LABS: Bedside Glucose 238 mg/dL (70-110)
[2021-07-07] MEDS: Insulin Lispro 100 UNIT/ML INSULN.PEN 20 UNIT SC (17:27)
[2021-07-07 17:30] LABS: Troponin-I HS 21 pg/mL (3.0-54.0)
[2021-07-07] MEDS: Gabapentin 300 MG Capsule PO (18:08)
[2021-07-07] MEDS: oxyCODONE 5 MG Tablet PO (21:12)
[2021-07-07] MEDS: Heparin Injection (Vial) 5,000 UNIT/ML VIAL 5000 UNIT SC (21:13)
[2021-07-07] MEDS: Pramipexole Di-HCl 1 MG Tablet 1.5 MG PO (21:13)
[2021-07-07] MEDS: MELATONIN 10 MG TABLET 20 MG PO (21:13)
[2021-07-07] MEDS: Atorvastatin Calcium 80 MG Tablet PO (21:19)
[2021-07-07 21:55] LABS: Troponin-I HS 23 pg/mL (3.0-54.0)
[2021-07-08 03:00] VITALS: PULSE 79
[2021-07-08 04:35] VITALS: BP 130/70; PULSE 85; RESP 18; TEMP 36.6; O2SAT 95
[2021-07-08] MEDS: Clopidogrel Bisulfate 75 MG Tablet PO (04:42)
[2021-07-08 06:13] LABS: Absolute Lymphocyte Count 1.12 X10^3/uL (0.83-4.51); Absolute Neutrophil Count 4.6 X10^3/uL (2.0-7.7); Basophil# 0.03 X10^3/uL; Basophil% 0.5 % (0-1); Eosinophil# 0.26 X10^3/uL; Hematocrit 24.6 % (37-47); Hemoglobin 7.7 g/dL (12.0-15.0); Lymphocyte # 1.12 X10^3/ul (0.83-4.51); Lymphocyte % 17.4 % (19-41); Mean Corp Hgb Conc 31.3 g/dL (32-36); Mean Corpuscular Hgb 27.8 pg (27.0-32.0); Mean Corpuscular Volume 88.8 fL (81-99); Mean Platelet Vol. 10.1 fl (6.2-12.0); Monocyte% 6.2 % (0-10); NRBC Flagged by Analyzer 0 % (0-5); Neutrophil # 4.62 X10^3/uL (2.7-7.7); Neutrophil % 71.6 % (47-70); Platelet Count 273 K/mm3 (150-450); RBC Distribution Width CV 12.5 % (11.6-14.6); RBC Distribution Width SD 40.9 fl (35.1-43.9); Red Blood Count 2.77 M/mm3 (4.2-5.4); White Blood Count 6.5 K/mm3 (4.4-11.0)
[2021-07-08 06:42] LABS: ALB/GLOB Ratio 0.4 RATIO (0.9-2.4); AST(SGOT) 15 U/L (15-37); Alanine Aminotransfer ALT/SGPT 19 U/L (13-56); Albumin, Serum 1.8 g/dL (3.2-5.0); Alkaline Phosphatase 140 U/L (45-117); Anion Gap 8 (5-15); BUN 41 mg/dL (7-18); BUN/Creat Ratio 17.7 RATIO (10-20); Calcium,Total 8.6 mg/dL (8.5-10.1); Chloride 107 mmol/L (98-107); Creatinine, Serum 2.32 mg/dL (0.55-1.02); EST Glomerular Filtration Rate 23 mL/min (>60); Est Glom Filt Rate - Afr Amer 28 mL/min (>60); Estimated Creatinine Clearance 25.35 ml/min; Globulin 4.4 g/dL (2.2-4.2); Glucose 236 mg/dL (74-106); Potassium 4.4 mmol/L (3.5-5.1); Protein, Total 6.2 g/dL (6.4-8.2); Sodium Level 138 mmol/L (136-145)
[2021-07-08 06:52] LABS: Phosphorus 4.7 mg/dL (2.5-4.9)
[2021-07-08 07:29] VITALS: O2SAT 95
[2021-07-08 07:45] VITALS: PULSE 87
--- NOTE | 2021-07-08 08:53 | PCM.CONS.R ---
Assessment & Plan Assessment/Plan (1) Stage 4 chronic kidney disease: PLAN: Due to diabetic nephropathy poor diabetic control with nephrotic range proteinuria on losartan at home but not certain if compliant with medications, especially with poor diabetes control. 24-hour urine creatinine clearance 29 cc/min with 8.8g protein from July 07 (2) Chest pain: PLAN: stress test today. History of CAD status post stent (3) Bilateral edema of lower extremity: PLAN: Chronic edema from nephrotic syndrome (4) Essential (primary) hypertension: PLAN: BP stable continue current blood pressure medications from home (5) Type 2 diabetes mellitus with diabetic polyneuropathy: QUALIFIERS: Diabetes mellitus penitentiary insulin use: with penitentiary use Qualified Code(s): E11.42 - Type 2 diabetes mellitus with diabetic polyneuropathy; Z79.4 - [facility] (current) use of insulin PLAN: Charcot foot (6) Iron deficiency anemia: PLAN: iv iron, continue oral iron on discharge (7) Hyperparathyroidism, secondary renal: PLAN: PTH stable, no need for VDRA (8) HLD (hyperlipidemia): QUALIFIERS: Hyperlipidemia type: unspecified Qualified Code(s): E78.5 - Hyperlipidemia, unspecified PLAN: On statin therapy HPI Consult Data Date of Consult: 07/08/21 HPI Narrative HPI Narrative: DIONY ROCHA, is a 56 F who was seen in my office on initial visit June 04 for CKD stage IV due to diabetic nephropathy. She has baseline creatinine 1.5-1.8. Creatinine 1.9 on admit increased to 2.3 today. She had a 24-hour urine collection that showed creatinine clearance of 29 cc/min with nephrotic range proteinuria with 8.9 g protein on 07/07/21. She has chronic lower extremity edema. She has poorly controlled diabetes with recent A1c of 9.8. She has a history of Charcot joint with foot infection followed by wound center. She also has retinopathy. She presents to [facility] with chest pain radiating to her back that started yesterday when she dropped off her 24 urine collection to the lab. She took a nitro with little relief of her symptoms. She is scheduled for pharmacologic stress test today. She has a history of CAD status post stent. She also has a history of iron deficiency anemia. Hemoglobin 7.7 today. [facility] Medical History Acquired varus deformity of left foot Acquired varus deformity of right foot Amputation foot, bilat Anemia Anxiety Anxiety and depression Atherosclerosis of [place] coronary artery of [place] heart without angina pectoris Back pain, chronic Chronic renal insufficiency Chronic ulcer of left foot with fat layer exposed Coronary artery disease Delayed wound healing Depression Diabetes Diabetic foot ulcer associated with type 2 diabetes mellitus Diabetic infection of left foot Diabetic polyneuropathy Diabetic ulcer of right ankle Essential (primary) hypertension GERD (gastroesophageal reflux disease) Hemoglobin A1c greater than 9.0% HLD (hyperlipidemia) Hypertension Ischemic cardiomyopathy Myocardial infarct Non-compliance Non-smoker Normocytic anemia NSTEMI (non-ST elevated myocardial infarction) (09/20/18) Obesity (BMI 30.0-34.9) Osteomyelitis of left foot RLS (restless legs syndrome) TIA (transient ischemic attack) Type 2 diabetes mellitus with diabetic polyneuropathy Ulcer of left foot with muscle involvement without evidence of necrosis Ulcer of right lower extremity with fat layer exposed Home Medications atorvastatin 80 mg tablet 80 mg PO QHS #90 tablet 11/30/19 [Rx Last Taken 07/05/21] insulin lispro 20 unit SC TIDCM 08/31/20 [History Last Taken 07/06/21] polysaccharide iron complex 150 mg PO DAILYCM 09/12/20 [History Last Taken 07/04/21] pramipexole 1.5 mg PO BID 09/12/20 [History Last Taken 07/06/21] clopidogrel 75 mg PO DAILY #0 tablet 01/01/21 [Rx Last Taken 07/05/21] insulin glargine 100 unit/mL (3 mL) subcutaneous pen 30 unit SC DAILY ml 01/20/21 [History Last Taken 07/04/21] nitroglycerin 0.4 mg sublingual tablet 0.4 mg SL Q5-15M PRN #25 tablet 01/20/21 [Rx Last Taken 07/07/21] isosorbide mononitrate 30 mg PO DAILY 03/03/21 [History Last Taken 07/04/21] gabapentin 300 mg PO TID 07/07/21 [History Last Taken 07/06/21] melatonin 20 mg PO DAILY 07/07/21 [History Last Taken 07/06/21] oxycodone 5 mg PO BID 07/07/21 [History Last Taken 07/06/21] paroxetine HCl 20 mg PO DAILY 07/07/21 [History Last Taken 07/06/21] Allergy/AdvReac Type Severity Reaction Status Date / Time oxycodone [From OxyContin] Allergy feels Verified 07/07/21 13:06 like I'm drowning Penicillins Allergy swelling Verified 07/07/21 13:06 in throat vancomycin Allergy Itching Verified 07/07/21 13:06 metronidazole AdvReac Nausea Verified 07/07/21 13:06 Family History (Reviewed 07/07/21 @ 16:13 by Valencia Peterson COMMUNICATIONS TECHNOLOGIST, COMMUNICATIONS TECHNOLOGIST-C) Mother Diabetes CVA (cerebral vascular accident) Brother CAD (coronary artery disease) CABG X 3 Cancer testicular Diabetes Brother CAD (coronary artery disease) CABG X3 Diabetes Brother CAD (coronary artery disease) Stents Diabetes Sister CAD (coronary artery disease) CABG x 3 CVA (cerebral vascular accident) Diabetes Surgical History (Reviewed 07/07/21 @ 16:14 by Valencia Peterson COMMUNICATIONS TECHNOLOGIST, COMMUNICATIONS TECHNOLOGIST-C) History of bilateral carpal tunnel release History of History of coronary artery stent placement (12/31/20) History of foot surgery History of rotator cuff surgery Social History (Updated 07/07/21 @ 16:14 by Valencia Peterson COMMUNICATIONS TECHNOLOGIST, COMMUNICATIONS TECHNOLOGIST-C) household members: family Smoking Status: Never smoker alcohol intake: never substance use type: does not use caffeine: Yes Type: carbonated beverages Number of servings: 2 ROS Constitutional Constitutional: Denies chills, fever(s) or weakness Eyes Eyes: Reports other Details: Retinopathy Cardiovascular Cardiovascular: Reports chest pain and leg edema; Denies diaphoresis or dyspnea on exertion Respiratory/Chest Respiratory/Chest: Denies dyspnea on exertion Genitourinary Genitourinary: Denies difficulty urinating Musculoskeletal Musculoskeletal: Reports other Details: Charcot foot, chronic leg edema Integumentary Integumentary: Denies rash Neurologic Neurologic: Reports numbness Psychiatric Psychiatric: Reports anxiety and depression Hematologic/Lymphatic Hematologic/Lymphatic: Reports anemia Physical Exam Const alert, oriented x3 and no apparent distress HEENT normocephalic Eyes PERRL and EOMs intact bilaterally Resp clear to auscultation bilaterally Cardio regular rate GI non-tender and non-distended GI Narrative: Obese Palpation: soft Extremity Extremity Narrative: Mild bilateral lower extremity edema Skin no rashes or lesions noted Neuro Sensorium / Orientation: awake and alert Psych cooperative Lab / Micro Data Result Diagrams: 07/08/21 06:06 07/08/21 06:06 Labs: Laboratory Results - last 24 hr 07/07/21 14:36: WBC 8.4, RBC 3.45 L, Hgb 9.5 L, Hct 31.3 L, MCV 90.7, MCH 27.5, MCHC 30.4 L, RDW Std Deviation 41.8, RDW Coeff of Fior 12.6, Plt Count 323, MPV 10.5, Immature Gran % (Auto) 0.200, Neut % (Auto) 79.6 H, Lymph % (Auto) 11.7 L, [place] % (Auto) 5.8, Eos % (Auto) 2.3, Baso % (Auto) 0.4, Absolute Neuts (auto) 6.7, Absolute Lymphs (auto) 0.98, Nucleated RBC % 0 07/07/21 14:36: Sodium 136, Potassium 4.6, Chloride 104, Carbon Dioxide 22.0, Anion Gap 10, BUN 38 H, Creatinine 2.04 H, Estim Creat Clear Calc 28.83, Est GFR (MDRD) Af Amer 32 L, Est GFR (MDRD) Non-Af 27 L, BUN/Creatinine Ratio 18.6, Glucose 245 H, Calcium 8.9, Troponin I High Sens 07/07/21 16:42: Troponin I High Sens 07/07/21 16:51: POC Glucose 238 H 07/07/21 20:53: Troponin I High Sens 07/08/21 06:06: WBC 6.5, RBC 2.77 L, Hgb 7.7 L, Hct 24.6 L, MCV 88.8, MCH 27.8, MCHC 31.3 L, RDW Std Deviation 40.9, RDW Coeff of Fior 12.5, Plt Count 273, MPV 10.1, Immature Gran % (Auto) 0.300, Neut % (Auto) 71.6 H, Lymph % (Auto) 17.4 L, [place] % (Auto) 6.2, Eos % (Auto) 4.0, Baso % (Auto) 0.5, Absolute Neuts (auto) 4.6, Absolute Lymphs (auto) 1.12, Nucleated RBC % 0 07/08/21 06:06: Sodium 138, Potassium 4.4, Chloride 107, Carbon Dioxide 23.0, Anion Gap 8, BUN 41 H, Creatinine 2.32 H, Estim Creat Clear Calc 25.35, Est GFR (MDRD) Af Amer 28 L, Est GFR (MDRD) Non-Af 23 L, BUN/Creatinine Ratio 17.7, Glucose 236 H, Calcium 8.6, Total Bilirubin 0.20, AST 15, ALT 19, Alkaline Phosphatase 140 H, Total Protein 6.2 L, Albumin 1.8 L, Globulin 4.4 H, Albumin/Globulin Ratio 0.4 L 07/08/21 06:06: Phosphorus 4.7 Micro: Microbiology 07/07/21 15:10 Nasal Secretion SARS-CoV-2 Antigen (Rapid) - Final Radiology Impression Chest X-Ray 07/07/21 14:40 IMPRESSION: Findings suggestive of mild degree of vascular congestion. Electronically Signed: Ronnie Saavedra MD at 15:03 EDT , Service support ,
--- NOTE | 2021-07-08 08:59 | NURSING ---
Pt to stress test via [facility]
[2021-07-08 09:45] LABS: Bedside Glucose 199 mg/dL (70-110)
--- NOTE | 2021-07-08 09:47 | NURSING ---
noted to have an increase in irritablitiy and requested to have blood sugar checked, noted one touch to be 199, no action needed
--- NOTE | 2021-07-08 11:49 | STRESSREP ---
Stress Test Report Myocardial perfusion stress test. 56-year-old lady with a history of coronary artery disease status post previous angioplasty and stenting to the left anterior descending artery. Stress protocol: Resting EKG demonstrates normal sinus rhythm with a rate of 89 bpm and poor R wave progression. Resting blood pressure is 152/88 mmHg. 0.4 mg of regadenoson was infused per usual protocol followed by rapid intravenous saline flush injection continuous EKG monitoring was performed. The maximum heart rate attained was noted to be 99 bpm which was 60% of maximum predicted heart rate and the maximum workload was 1 metabolic equivalent. At rest there were no ST or T wave changes noted to suggest abnormal flow reserve and at peak infusion nonspecific ST changes were noted with did not meet the criteria for ischemia. No clinical angina was noted. Myocardial perfusion protocol. 14.2 mCi of technetium 99m sestamibi was injected at rest. 0.4 mg of regadenoson was infused per usual protocol. At peak infusion 44.5 mCi of technetium 99m sestamibi was injected stress images were obtained stress and rest images were reconstructed and compared in the short axis vertical long and horizontal long axis. Gated images were also obtained. Perfusion SPECT analysis: Review of the stress images demonstrates a defect noted involving the mid to distal anterior wall. The septum lateral wall and inferior wall appeared to be normally perfused. The resting images demonstrate a similar size defect noted in the mid to distal anterior wall with minimal improvement. The other ray appear to be normally perfused. The above is suggestive of her previous anterior infarct with mild vinicius-infarct ischemia. This is involving the anterior wall. Gated SPECT analysis: The gated ejection fraction is 35%. Conclusion: Mildly abnormal pharmacologic myocardial perfusion stress test with mild anterior ischemia. Previous anterior infarct noted. Left ventricular systolic dysfunction.
[2021-07-08 11:59] VITALS: PULSE 85
[2021-07-08] MEDS: Iron Polysaccharide Complex 150 MG CAPSULE PO (12:00)
[2021-07-08] MEDS: oxyCODONE 5 MG Tablet PO (12:01)
[2021-07-08] MEDS: Gabapentin 300 MG Capsule PO (12:01)
[2021-07-08] MEDS: Paroxetine 20 MG Tablet PO (12:01)
[2021-07-08] MEDS: Isosorbide Mononitrate 30 MG Tablet PO (12:01)
[2021-07-08 12:06] LABS: Bedside Glucose 214 mg/dL (70-110)
[2021-07-08] MEDS: Insulin Lispro 100 UNIT/ML INSULN.PEN 20 UNIT SC (12:16)
[2021-07-08 12:21] VITALS: BP 136/67; PULSE 79; RESP 18; TEMP 36.7; O2SAT 99
[2021-07-08] MEDS: DAKIN'S SOL HALF STRENGTH (=0.25%) 1 APPLIC TOPICAL (12:39)
--- NOTE | 2021-07-08 13:08 | PCM.DC ---
Discharge Instructions Diet Discharge Diet: Low fat / Low cholesterol, Carb Control Diet and Renal Diet Activity Discharge Activity: Return to Normal Activity Dressing / Incision Call your doctor if you observe: Shortness of breath, Dizziness and Chest pain Follow Up Care Test Results: Test results from this visit will be discussed in further detail at your follow-up appointment, if applicable. Discharge Plan Admission Admit Date/Time: 07/07/21 15:46 Primary Reason for Your Visit: chest pain Attending Provider: Kali Prado Primary Care Provider: Raúl Eric Consulting Providers: Margie Mancilla Instructions Additional Instructions / Restrictions: Patient Problems: Altered Health Status related to Hospitalization Patient Goals: *Optimal Level of Health *Keep Appointments *Medication Compliance *Remain Safe Discharge Orders/Prescriptions Prescriptions: Continued atorvastatin 80 mg tablet 80 mg PO QHS Qty: 90 RF: 3 nitroglycerin 0.4 mg tablet, sublingual 0.4 mg SL Q5-15M PRN (Reason: chest pain) Qty: 25 RF: 3 insulin lispro 100 UNIT/ML insulin pen 20 unit SC TIDCM RF: 0 pramipexole 1 MG tablet 1.5 mg PO BID RF: 0 polysaccharide iron complex 150 MG capsule 150 mg PO DAILYCM RF: 0 insulin glargine 100 unit/mL (3 mL) insulin pen 30 unit SC DAILY RF: 0 clopidogrel 75 MG tablet 75 mg PO DAILY Qty: 0 RF: 0 isosorbide mononitrate 30 mg tablet extended release 24 hr 30 mg PO DAILY RF: 0 paroxetine HCl 20 mg tablet 20 mg PO DAILY RF: 0 melatonin 10 mg Tablet 20 mg PO DAILY RF: 0 gabapentin 300 mg capsule 300 mg PO TID RF: 0 oxycodone 5 mg tablet 5 mg PO BID RF: 0 Referrals / Follow Up: Margie Mancilla DO [STAFF PHYSICIAN] - See Referral Note (As scheduled) Raúl Eric MD [Primary Care Provider] - In 1 Week Zach Mitchell NP, NATURAL RESOURCE ECONOMIST-C [Nurse Practitioner] - In 1 Week Disposition Disposition (needs filled in before D/C Order can be placed): Home, Self Care
--- NOTE | 2021-07-08 13:17 | PCM.DC.SUM ---
Documented by User: Valencia Peterson NP, [employer] OPERATIONS SUPERINTENDENT-C 07/08/21 13:26 Providers Date of Admission: 07/07/21 Date of Discharge: 07/08/21 Primary Care Physician: Dr. Raúl Eric MD Consultations 07/07/21 17:39 Consult: Onc/Wound/port patrol officer Routine Comment: Reason for Consult:: b/l foot wounds 07/07/21 17:41 Consult: Nephrology Routine Consulting Provider: Margie Mancilla Reason for Consult: ESRD on HD EMERGENT Consult: No MD Notified: Yes Date Notified: 07/07/21 Time Notified: 17:56 Method of Notification: Text 07/07/21 17:43 Consult: Onc/Wound/port patrol officer Routine Comment: Reason For Visit: CHEST PAIN Diagnosis Discharge Diagnosis (1) Stage 4 chronic kidney disease: Status: Chronic Code(s): N18.4 - Chronic kidney disease, stage 4 (severe) (2) Chest pain: Status: Acute Code(s): R07.9 - Chest pain, unspecified (3) Bilateral edema of lower extremity: Status: Acute Code(s): R60.0 - Localized edema (4) Essential (primary) hypertension: Status: Chronic Code(s): I10 - Essential (primary) hypertension (5) Type 2 diabetes mellitus with diabetic polyneuropathy: Status: Chronic Code(s): E11.42 - Type 2 diabetes mellitus with diabetic polyneuropathy Qualifiers: Diabetes mellitus intermediate teacher insulin use: with intermediate teacher use Qualified Code(s): E11.42 - Type 2 diabetes mellitus with diabetic polyneuropathy; Z79.4 - termite control technician (current) use of insulin (6) Iron deficiency anemia: Status: Acute Code(s): D50.9 - Iron deficiency anemia, unspecified (7) Hyperparathyroidism, secondary renal: Status: Acute Code(s): N25.81 - Secondary hyperparathyroidism of renal origin (8) HLD (hyperlipidemia): Status: Chronic Code(s): E78.5 - Hyperlipidemia, unspecified Qualifiers: Hyperlipidemia type: unspecified Qualified Code(s): E78.5 - Hyperlipidemia, unspecified Medications at Discharge Home Medications atorvastatin 80 mg tablet 80 mg PO QHS #90 tablet 11/30/19 insulin lispro 20 unit SC TIDCM 08/31/20 polysaccharide iron complex 150 mg PO DAILYCM 09/12/20 pramipexole 1.5 mg PO BID 09/12/20 clopidogrel 75 mg PO DAILY #0 tablet 01/01/21 insulin glargine 100 unit/mL (3 mL) subcutaneous pen 30 unit SC DAILY ml 01/20/21 nitroglycerin 0.4 mg sublingual tablet 0.4 mg SL Q5-15M PRN #25 tablet 01/20/21 isosorbide mononitrate 30 mg PO DAILY 03/03/21 gabapentin 300 mg PO TID 07/07/21 melatonin 20 mg PO DAILY 07/07/21 oxycodone 5 mg PO BID 07/07/21 paroxetine HCl 20 mg PO DAILY 07/07/21 Hospital Course Operations None Procedures Nuclear stress test Summary of Care Provided Minutes Spent on Discharge: 35 Hospital Course: Patient is a 56-year-old female admitted 07/07/2021 due to chest pain. 1. Chest pain-atypical. Troponin negative. Patient states she is not able to take aspirin due to chronic kidney disease. Patient underwent stress test which was reported to be mildly abnormal with mild anterior ischemia, previous anterior infarct noted. Gated ejection fraction 35%. Cardiology recommending medical management. Follow-up with cardiology in 1 week. Patient denies further chest pain. 2. CAD with history of PCI to mid and distal LAD-on Plavix, statin, isosorbide. 3. Chronic heart failure with preserved ejection fraction-echocardiogram December 2020 demonstrated an EF of 55%, stage I diastolic dysfunction. 4. Type 2 diabetes mellitus with polyneuropathy-continue home insulin regimen. 5. Chronic kidney disease stage IV-follows with nephrology, Dr. Mancilla. Continue outpatient follow-up. 6. Chronic normocytic anemia/anemia of chronic disease-hemoglobin 7.7 however this appears baseline for patient. IV iron x1 per nephrology. Continue oral iron supplementation. Monitor CBC as outpatient. 7. Hypertension-stable, continue isosorbide. 8. Hyperlipidemia-continue statin. 9. Chronic bilateral plantar foot ulcerations/Charcot feet-continue follow-up with podiatry and wound center. Physical Exam Const alert, oriented x3 and no apparent distress Orientation / Consciousness: awake, oriented to person, oriented to place and oriented to time Nutritional Appearance: obese HEENT normocephalic and moist oral mucous membranes Eyes PERRL, EOMs intact bilaterally and conjunctivae normal Neck no lymphadenopathy Resp normal respiratory effort and clear to auscultation bilaterally Cardio regular rate, regular rhythm and no murmurs Peripheral Pulses: pulses 2+ throughout GI normal to inspection, nondistended, normoactive bowel sounds, non-tender and non-distended Extremity normal to inspection Skin no rashes or lesions noted Skin Narrative: Chronic bilateral foot wounds, not visualized at this time. Charcot feet. Lesions: no lesions Rashes: no rashes Trauma: no lacerations or abrasions Neuro CN's II-XII intact bilaterally, no focal motor deficits, no sensory deficits noted and deep tendon reflexes 2+ bilaterally Psych mental status grossly normal and affect normal Patient seen and examined prior to discharge. Physical assessment as noted above. Patient is stable for discharge with follow up recommendations as noted above. This patient was seen by BRIAN Mathews under the supervision of Dr. Prado. Weight / BMI Weight Weight: 200 lb 6.403 oz Body Mass Index (BMI) 32.3 ABG / Lab / Microbiology Data Result Diagrams: 07/08/21 06:06 07/08/21 06:06 Laboratory: Laboratory Results - last 24 hr 07/07/21 14:36: WBC 8.4, RBC 3.45 L, Hgb 9.5 L, Hct 31.3 L, MCV 90.7, MCH 27.5, MCHC 30.4 L, RDW Std Deviation 41.8, RDW Coeff of Fior 12.6, Plt Count 323, MPV 10.5, Immature Gran % (Auto) 0.200, Neut % (Auto) 79.6 H, Lymph % (Auto) 11.7 L, [place] % (Auto) 5.8, Eos % (Auto) 2.3, Baso % (Auto) 0.4, Absolute Neuts (auto) 6.7, Absolute Lymphs (auto) 0.98, Nucleated RBC % 0 07/07/21 14:36: Sodium 136, Potassium 4.6, Chloride 104, Carbon Dioxide 22.0, Anion Gap 10, BUN 38 H, Creatinine 2.04 H, Estim Creat Clear Calc 28.83, Est GFR (MDRD) Af Amer 32 L, Est GFR (MDRD) Non-Af 27 L, BUN/Creatinine Ratio 18.6, Glucose 245 H, Calcium 8.9, Troponin I High Sens 23 07/07/21 16:42: Troponin I High Sens 21 07/07/21 16:51: POC Glucose 238 H 07/07/21 20:53: Troponin I High Sens 23 07/08/21 06:06: WBC 6.5, RBC 2.77 L, Hgb 7.7 L, Hct 24.6 L, MCV 88.8, MCH 27.8, MCHC 31.3 L, RDW Std Deviation 40.9, RDW Coeff of Fior 12.5, Plt Count 273, MPV 10.1, Immature Gran % (Auto) 0.300, Neut % (Auto) 71.6 H, Lymph % (Auto) 17.4 L, [place] % (Auto) 6.2, Eos % (Auto) 4.0, Baso % (Auto) 0.5, Absolute Neuts (auto) 4.6, Absolute Lymphs (auto) 1.12, Nucleated RBC % 0 07/08/21 06:06: Sodium 138, Potassium 4.4, Chloride 107, Carbon Dioxide 23.0, Anion Gap 8, BUN 41 H, Creatinine 2.32 H, Estim Creat Clear Calc 25.35, Est GFR (MDRD) Af Amer 28 L, Est GFR (MDRD) Non-Af 23 L, BUN/Creatinine Ratio 17.7, Glucose 236 H, Calcium 8.6, Total Bilirubin 0.20, AST 15, ALT 19, Alkaline Phosphatase 140 H, Total Protein 6.2 L, Albumin 1.8 L, Globulin 4.4 H, Albumin/Globulin Ratio 0.4 L 07/08/21 06:06: Phosphorus 4.7 07/08/21 09:39: POC Glucose 199 H 07/08/21 11:59: POC Glucose 214 H Microbiology: Microbiology 07/07/21 15:10 Nasal Secretion SARS-CoV-2 Antigen (Rapid) - Final Radiography Diagnostic Testing: Radiology Impression Chest X-Ray 07/07/21 14:40 IMPRESSION: Findings suggestive of mild degree of vascular congestion. Electronically Signed: Ronnie Saavedra MD at 15:03 EDT , Service support , D/C Instructions Discharge Diet: Low fat / Low cholesterol, Carb Control Diet and Renal Diet Call your doctor if you observe: Shortness of breath, Dizziness and Chest pain Meaningful Use Info Meaningful Use Diagnoses (Choose all that apply): None applicable Discharge Plan Admission Admit Date/Time: 07/07/21 15:46 Primary Reason for Your Visit: chest pain Attending Provider: Kali Prado Primary Care Provider: Raúl Eric Consulting Providers: Margie Mancilla Instructions Additional Instructions / Restrictions: Patient Problems: Altered Health Status related to Hospitalization Patient Goals: *Optimal Level of Health *Keep Appointments *Medication Compliance *Remain Safe Discharge Orders/Prescriptions Prescriptions: Continued atorvastatin 80 mg tablet 80 mg PO QHS Qty: 90 RF: 3 nitroglycerin 0.4 mg tablet, sublingual 0.4 mg SL Q5-15M PRN (Reason: chest pain) Qty: 25 RF: 3 insulin lispro 100 UNIT/ML insulin pen 20 unit SC TIDCM RF: 0 pramipexole 1 MG tablet 1.5 mg PO BID RF: 0 polysaccharide iron complex 150 MG capsule 150 mg PO DAILYCM RF: 0 insulin glargine 100 unit/mL (3 mL) insulin pen 30 unit SC DAILY RF: 0 clopidogrel 75 MG tablet 75 mg PO DAILY Qty: 0 RF: 0 isosorbide mononitrate 30 mg tablet extended release 24 hr 30 mg PO DAILY RF: 0 paroxetine HCl 20 mg tablet 20 mg PO DAILY RF: 0 melatonin 10 mg Tablet 20 mg PO DAILY RF: 0 gabapentin 300 mg capsule 300 mg PO TID RF: 0 oxycodone 5 mg tablet 5 mg PO BID RF: 0 Referrals / Follow Up: Margie Mancilla DO [STAFF PHYSICIAN] - See Referral Note (As scheduled) Raúl Eric MD [Primary Care Provider] - In 1 Week Zach Mitchell NP, [employer]PERATIONS SUPERINTENDENT-C [Nurse Practitioner] - In 1 Week Disposition Disposition (needs filled in before D/C Order can be placed): Home, Self Care Documented by User: Dr. Kali Prado DO 07/08/21 15:46 Providers Date of Admission: 07/07/21 Reason For Visit: CHEST PAIN Medications at Discharge Home Medications atorvastatin 80 mg tablet 80 mg PO QHS #90 tablet 11/30/19 insulin lispro 20 unit SC TIDCM 08/31/20 polysaccharide iron complex 150 mg PO DAILYCM 09/12/20 pramipexole 1.5 mg PO BID 09/12/20 clopidogrel 75 mg PO DAILY #0 tablet 01/01/21 insulin glargine 100 unit/mL (3 mL) subcutaneous pen 30 unit SC DAILY ml 01/20/21 nitroglycerin 0.4 mg sublingual tablet 0.4 mg SL Q5-15M PRN #25 tablet 01/20/21 isosorbide mononitrate 30 mg PO DAILY 03/03/21 gabapentin 300 mg PO TID 07/07/21 melatonin 20 mg PO DAILY 07/07/21 oxycodone 5 mg PO BID 07/07/21 paroxetine HCl 20 mg PO DAILY 07/07/21 Hospital Course Operations None Procedures Stress test Summary of Care Provided Minutes Spent on Discharge: 28 Hospital Course: 56-year-old female presents with chest pain. Patient troponins that were negative but did undergo stress test that showed mild anterior ischemia but previous anterior infarct noted. Cardiology was notified and recommended continue with medical management. Patient did have EF of 35%. Patient will follow up with cardiology as outpatient. Patient was anemic but appear to be stable. Patient be discharged home in stable condition. Physical Exam Const alert Resp normal respiratory effort, no retractions, no use of accessory muscles and clear to auscultation bilaterally Cardio regular rate, regular rhythm, S1 normal heart sound and S2 normal heart sound GI normal to inspection, nondistended, normoactive bowel sounds, soft to palpation, non-tender and non-distended ABG / Lab / Microbiology Data Result Diagrams: 07/08/21 06:06 07/08/21 06:06 Discharge Plan Admission Admit Date/Time: 07/07/21 15:46 Primary Reason for Your Visit: chest pain Attending Provider: Kali Prado Primary Care Provider: Raúl Eric Consulting Providers: Mragie Mancilla Instructions Additional Instructions / Restrictions: Patient Problems: Altered Health Status related to Hospitalization Patient Goals: *Optimal Level of Health *Keep Appointments *Medication Compliance *Remain Safe Discharge Orders/Prescriptions Prescriptions: Continued atorvastatin 80 mg tablet 80 mg PO QHS Qty: 90 RF: 3 nitroglycerin 0.4 mg tablet, sublingual 0.4 mg SL Q5-15M PRN (Reason: chest pain) Qty: 25 RF: 3 insulin lispro 100 UNIT/ML insulin pen 20 unit SC TIDCM RF: 0 pramipexole 1 MG tablet 1.5 mg PO BID RF: 0 polysaccharide iron complex 150 MG capsule 150 mg PO DAILYCM RF: 0 insulin glargine 100 unit/mL (3 mL) insulin pen 30 unit SC DAILY RF: 0 clopidogrel 75 MG tablet 75 mg PO DAILY Qty: 0 RF: 0 isosorbide mononitrate 30 mg tablet extended release 24 hr 30 mg PO DAILY RF: 0 paroxetine HCl 20 mg tablet 20 mg PO DAILY RF: 0 melatonin 10 mg Tablet 20 mg PO DAILY RF: 0 gabapentin 300 mg capsule 300 mg PO TID RF: 0 oxycodone 5 mg tablet 5 mg PO BID RF: 0 Referrals / Follow Up: Margie Mancilla DO [STAFF PHYSICIAN] - See Referral Note (As scheduled) Raúl Eric MD [Primary Care Provider] - In 1 Week Zach Mitchell NP, [employer] OPERATIONS SUPERINTENDENT-C [Nurse Practitioner] - In 1 Week Disposition Disposition (needs filled in before D/C Order can be placed): Home, Self Care Charges/Coding Visit Charges OBSV E&M: 50026 Observation care discharge
--- NOTE | 2021-07-08 13:57 | CASEMGMT ---
Call from [facility] and they are currently active with pt for SN for wound care. [facility] aware pt is Observation and clinicals faxed as well d/c summ/instructions. Mary Ann IGLESIAS CM
--- NOTE | 2021-07-08 14:09 | PHA.DC.MR ---
Pharmacy Service has performed discharge medication reconciliation for this patient. The patient's discharge medication list was reviewed for discrepancies and discrepancies were resolved. Home Medications atorvastatin 80 mg tablet 80 mg PO QHS #90 tablet 11/30/19 insulin lispro 20 unit SC TIDCM 08/31/20 polysaccharide iron complex 150 mg PO DAILYCM 09/12/20 pramipexole 1.5 mg PO BID 09/12/20 clopidogrel 75 mg PO DAILY #0 tablet 01/01/21 insulin glargine 100 unit/mL (3 mL) subcutaneous pen 30 unit SC DAILY ml 01/20/21 nitroglycerin 0.4 mg sublingual tablet 0.4 mg SL Q5-15M PRN #25 tablet 01/20/21 isosorbide mononitrate 30 mg PO DAILY 03/03/21 gabapentin 300 mg PO TID 07/07/21 melatonin 20 mg PO DAILY 07/07/21 oxycodone 5 mg PO BID 07/07/21 paroxetine HCl 20 mg PO DAILY 07/07/21
== END 2021-07-08 13:13 | disposition home or self-care (01) ==
LOC: ED 15:49 → PCU 16:04
PROVIDERS: Admitting Provider Internal Medicine; Emergency Provider Emergency Medicine; PCP Family Medicine
DX: R07.89 Other chest pain (principal); E78.5 Hyperlipidemia, unspecified; E11.22 Type 2 diabetes mellitus with diabetic chronic kidney disease; N18.4 Chronic kidney disease, stage 4 (severe); E11.65 Type 2 diabetes mellitus with hyperglycemia; D50.9 Iron deficiency anemia, unspecified; E11.621 Type 2 diabetes mellitus with foot ulcer; I89.0 Lymphedema, not elsewhere classified; L97.525 Non-pressure chronic ulcer of other part of left foot with muscle involvement without evidence of necrosis; I25.2 Old myocardial infarction; I25.10 Atherosclerotic heart disease of native coronary artery without angina pectoris; I13.2 Hypertensive heart and chronic kidney disease with heart failure and with stage 5 chronic kidney disease, or end stage renal disease; D63.1 Anemia in chronic kidney disease; Z23 Encounter for immunization; E11.42 Type 2 diabetes mellitus with diabetic polyneuropathy; I25.5 Ischemic cardiomyopathy; I50.32 Chronic diastolic (congestive) heart failure; N25.81 Secondary hyperparathyroidism of renal origin; K21.9 Gastro-esophageal reflux disease without esophagitis; F32.9 Major depressive disorder, single episode, unspecified; F41.9 Anxiety disorder, unspecified; E66.9 Obesity, unspecified; Z79.899 Other long term (current) drug therapy; Z79.02 Long term (current) use of antithrombotics/antiplatelets; Z68.32 Body mass index [BMI] 32.0-32.9, adult; Z79.4 Long term (current) use of insulin; Z79.891 Long term (current) use of opiate analgesic
CPT/HCPCS: 36415; 71045; 78452; 80048; 80053; 80061; 81050; 82043; 82570; 82575; 82728; 82962; 83036; 83540; 83550; 83970; 84100; 84156; 84484; 85025; 87426; 93005; 93017; 96365; 96366; 96372; 99218; 99285; A9500; G0008; J7050; 90686; A4216; G0378; J2785; J2916

== ENCOUNTER 2021-08-05 15:30 | Outpatient (RCR) | payer MEDICARE, MEDICAID, SELFPAY ==
[2018-09-21 13:23] VITALS: BMI 29.3
[2021-07-10 00:18] VITALS: BP 167/89; PULSE 99; RESP 18; TEMP 36.1; BMI 32.3
[2021-07-21 10:05] VITALS: BP 135/52; PULSE 97; RESP 16; TEMP 36.3; BMI 32.3
--- NOTE | 2021-07-21 11:18 | PN.PCM_ITS ---
History of Present Illness Date of Service: 07/21/21 Chief Complaint: right foot ulcer left foot ulcer History of Wound: Patient is a 55-year-old female who presents to the clinic for bilateral foot ulcers. Patient has been dealing with wounds to bilateral lower extremities for years. Patient has noted noncompliance including going out of the country or on vacation with wounds without care. Patient has significant delayed healing and foot deformities contributing to these ulcerations. Patient states struggled to understand what she is doing is contributing to her lack of wound healing. Patient was recently at the hospital for gastroenteritis 03/03/21. Patient also noted that time to have worsening right foot with acute Charcot foot noted on x- ray and MRI. Patient was also noted to have multiple new blisters formed during hospital stay with wounds that remain. It was determined during hospital visit the patient was not stable not to go to the operating room. Bedside debridements and cultures were obtained. Patient was started on Levaquin per infectious disease. Patient is to continue wound care and has since followed up with the wound care center. Right foot wound culture from 03/06/2021 with significant for bacterial growth of staph aureus and strep group C. Left foot wound did not appear clinically infected but was polymicrobial upon culture on 03/05/2021. MRI obtained of the right foot was negative for osteomyelitis but showed small focal abscess to lateral plantar foot. Patient is no longer at the SNF facility and has had regression of wound since returning home. Patient has since been readmitted and discharged from the hospital for chest pain. Progress of Wound: Stable Subjective Subjective Patient seen and examined resting comfortably. Patient denies any new pedal complaints. Patient denies any nausea, fever, chills, chest pain, shortness of breath, cough, streaking, purulence, vomiting. Relates blood sugars have been fluctuating between 50 and 270. Objective Data Objective Data Vital Signs: Vital Signs Temp Pulse Resp BP 97.4 F L 97 16 135/52 H 07/21/21 10:05 07/21/21 10:05 07/21/21 10:05 07/21/21 10:05 Oxygen Delivery Method Room Air Weight: 91.138 kg Body Mass Index (BMI) 32.3 Physical Exam Narrative Const General Appearance: cooperative, sleepy Extremity normal capillary refill and no calf tenderness General Extremity: no tenderness to palpation of joints or extremities and other findings Other Details: Capillary refill time less than 3 seconds noted to cy ly ; Negative for clubbing or cyanosis Skin General Skin Exam: atrophy and dry skin; Negative for ecchymosis, erythema, eschar, pallor or dermatitis Rashes: no rashes Wound Narrative: plantar left foot ulceration. Granular base. Mild maceration noted. Moderate periwound callus tissue noted. There is no erythema or edema or malodor or purulence or other suggestion signs of infection. Serous drainage noted. Plantar right foot ulceration is stable. Granular base. Mild maceration noted. Moderate periwound callus tissue noted. There is no erythema or edema or malodor or purulence or other suggestion signs of infection. Serosanguineous drainage noted. There is some tunneling noted at 10:00 that no longer communicates with the lateral foot wound Right lateral foot wound. Granular base. Mild maceration noted. Mild periwound callus tissue and maceration noted. There is no erythema or edema or malodor or purulence or other suggestion signs of infection. Serosanguineous drainage noted. Right lateral ankle ulceration. To level of fascia. No erythema or edema or malodor or purulence or other cyst signs suggestive of infection. Mild serosanguineous drainage noted. Surrounding scar tissue noted. 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 Charcot foot deformity noted bilaterally. Continued bilateral lower extremity edema noted. No calf tenderness negative Jaswinder and Nuñez sign. DP and PT are diminished bilaterally Neuromuscular Sensory Exam: extremities light-touch: decreased Motor Exam: strength abnormal other (4/5 to all pedal muscle groups) There is foot and Charcot deformities noted to bilateral feet with prominent plantar lateral feet collapse Psych Appearance: normal Debridement Note Debridement Note Wound debrided: Plantar foot Laterality: Right Wound Grade/Stage: Freedman 2 Type of Debridement: Excisional debridement Anesthesia Used: 4% Lidocaine Solution Depth: to muscle Percentage of wound debrided: 100 Instrument Used: 5mm curette Tissue Removed: includes fibrous, devitalized, biofilm, callus and slough tissue Severity: Necrosis of Muscle Amount of bleeding with debridement: Mild Bleeding Controlled with: Pressure Patient tolerated procedure: Patient tolerated procedure well Post-Debridement Measurements and Additional Note: Post-Debridement Measurements/Treatment [place] - Nurse 1 - General Ulcer Assessment Start: 07/21/21 10:04 Freq: Status: Active Protocol: LOWEXT Activity Type Activity Date Activity User E-Sign Co-Sign Detail Recorded Client Recorded Date Recorded By Document 07/21/21 10:05 [facility] [id number] 07/21/21 10:12 [facility] 07/21/21 10:05 - Today's Visit Information Type of service Follow-up Visit (Physician/CUSTOMER RELATIONS ADVISOR ) Arrival Mode Wheelchair Transfer Assistance Other Transfer Assist (Other) 1 stand by Patient Identification Verified (Name & Yes ) Patient Requires Transmission-Based No Precautions Height and Weight Body Mass Index (BMI) 32.3 BMI Classification Obese Vital Signs Temperature (97.8 F-99.1 F) 97.4 F L Temperature Source Temporal Pulse Rate (60-100) 97 Pulse Location Monitor Respiratory Rate (12-18) 16 Respiratory rate source Observation Oxygen Delivery Method Room Air Blood Pressure (90/60-120/80) 135/52 H Blood Pressure Mean (mm Hg) 79 Source Monitor Position Supine Blood Pressure Location Right Arm History Since Last Visit- (Skip if this is Patient's initial visit) Have you changed medications since your No last visit? Any new allergies or adverse reactions No Had a fall/change in ADL's that may No increase risk of falls Signs or symptoms of abuse and/or No neglect since last visit Have you been in the hospital since your No last visit? Has dressing in place as prescribed Yes Has compression in place as prescribed Yes Has offloadiing in place as prescribed Yes Experienced any changes in pain level or No management Left Footwear Slipper Right Footwear Slipper Pain Scale: 0-10 Numeric Is Patient Pain Free? Yes - Nurse 1 - General Ulcer Measurement Start: 07/21/21 10:04 Freq: Status: Active Protocol: Activity Type Activity Date Activity User E-Sign Co-Sign Detail Recorded Client Recorded Date Recorded By Document 07/21/21 10:05 [facility] [id number] 07/21/21 10:12 [facility] 07/21/21 10:05 Wound Center Nurse 1 #21 RIGHT LAT ANKLE -Combined with other wound No -Current Size (cm) - Length 0.5 -Current Size (cm) - Width 0.7 -Current Size (cm) - Depth 0.1 -Total Square Cm 0.35 -Photo Taken No -Epithelialization Small 1-33% -Tunneling No -Undermining/Tunneling No -Circular Undermining No -Exudate Amt Small -Exudate Type Serosanguineous -Wound Margin Distinct, Outline Attached -Granulation Amt Large (67-100%) -Granulation Quality [place] -Slough/Fibrin No -Necrosis Amt None Present (0 %) -Texture (Natacha-wound Skin Appearance) Assessed, Scarring -Moisture (Natacha-wound Skin Appearance) Assessed -Color (Natacha-wound Skin Appearance) Assessed, Erythema -Temperature (Natacha-wound Skin No Abnormality Appearance) (Pt Warm) -Tenderness on Palpation (Natacha-wound No Skin Appearance) -Ulcer Cleansing Soap and Water -Foul Odor after Cleansing No -Anesthetic Used 4% Lidocaine Solution 19-right inferior plantar -Combined with other wound No -Current Size (cm) - Length 2.5 -Current Size (cm) - Width 2 -Current Size (cm) - Depth 0.5 -Total Square Cm 5.0 -Photo Taken No -Epithelialization None Present -Tunneling No -Undermining/Tunneling Yes -Undermining/Tunneling Starts (O'clock 9 ) -Undermining/Tunneling Ends (O'clock) 1 -Maximum Distance (cm) 0.5 -Circular Undermining No -Exudate Amt Medium -Exudate Type Serosanguineous -Wound Margin Thickened & Rolled Under -Granulation Amt Large (67-100%) -Granulation Quality Red -Slough/Fibrin Yes -Necrosis Amt Small (1-33%) -Necrotic Tissue Type Adherent Slough -Texture (Natacha-wound Skin Appearance) Assessed,Callus ,Scarring -Moisture (Natacha-wound Skin Appearance) Assessed, Maceration,Dry/ Scaly -Color (Natacha-wound Skin Appearance) Assessed,Palor -Temperature (Natacha-wound Skin No Abnormality Appearance) (Pt Warm) -Tenderness on Palpation (Natacha-wound No Skin Appearance) -Ulcer Cleansing Soap and Water -Foul Odor after Cleansing No -Anesthetic Used 4% Lidocaine Solution #18 R Lat foot -Combined with other wound No -Current Size (cm) - Length 0.1 -Current Size (cm) - Width 0.1 -Current Size (cm) - Depth 0.1 -Total Square Cm 0.01 -Photo Taken No -Epithelialization Large 67-100% #16 L Plantar foot -Combined with other wound No -Current Size (cm) - Length 2.7 -Current Size (cm) - Width 2.3 -Current Size (cm) - Depth 0.5 -Total Square Cm 6.21 -Photo Taken No -Epithelialization None Present -Tunneling No -Undermining/Tunneling Yes -Undermining/Tunneling Starts (O'clock 10 ) -Undermining/Tunneling Ends (O'clock) 1 -Maximum Distance (cm) 0.4 -Undermining/Tunneling Starts #2 (O' 4 clock) -Undermining/Tunneling Ends #2 (O' 6 clock) -Maximum Distance #2 (cm) 0.4 -Circular Undermining No -Exudate Amt Medium -Exudate Type Serosanguineous -Wound Margin Thickened & Rolled Under -Granulation Amt Large (67-100%) -Granulation Quality Red -Slough/Fibrin Yes -Necrosis Amt Small (1-33%) -Necrotic Tissue Type Adherent Slough -Texture (Natacha-wound Skin Appearance) Assessed,Callus ,Scarring -Moisture (Natacha-wound Skin Appearance) Assessed,Dry/ Scaly -Color (Natacha-wound Skin Appearance) Assessed -Temperature (Natacha-wound Skin No Abnormality Appearance) (Pt Warm) -Tenderness on Palpation (Natacha-wound No Skin Appearance) -Ulcer Cleansing Soap and Water -Foul Odor after Cleansing No -Anesthetic Used 4% Lidocaine Solution WC - Nurse 2 - General Ulcer CM Notes Start: 07/21/21 10:04 Freq: Status: Active Protocol: Activity Type Activity Date Activity User E-Sign Co-Sign Detail Recorded Client Recorded Date Recorded By Document 07/21/21 10:25 [facility] [id number] 07/21/21 10:37 LISSY 07/21/21 10:25 Wound Center Nurse 2 #21 RIGHT LAT ANKLE -Time 10:28 -Correct Patient Yes -Correct Side, Site, Position Yes -Correct Procedure Yes -Procedure Performed Yes -Type of Procedure Debridement -Clinical Debridement Muscle / Fascia -Tissue Removed Fascia -Post Debridement (cm) - Length 0.5 -Post Debridement (cm) - Width 1.2 -Post Debridement (cm) - Depth 0.1 -Total Square (Post) (cm) 0.60 -Area of Debridement (cm) - Length 0.5 -Area of Debridement (cm) - Width 1.2 -Total Square (Area) (cm) 0.60 -Tunneling No -Undermining/Tunneling No -Circular Undermining No -Wound/Ulcer Outcome Not Healed -Ulcer Cleansing Rinsed/ Irrigated with Saline -Foul Odor after Cleansing No -Bioengineered Tissue No -Bleeding Controlled with Pressure -Offloading No -Treatment Response Procedure Tolerated Well -Debridement - Muscle / Fascia, 1st No 20sq cm 19-right inferior plantar -Time 10:28 -Correct Patient Yes -Correct Side, Site, Position Yes -Correct Procedure Yes -Procedure Performed Yes -Type of Procedure Debridement -Clinical Debridement Muscle / Fascia -Tissue Removed Muscle -Post Debridement (cm) - Length 2.5 -Post Debridement (cm) - Width 2 -Post Debridement (cm) - Depth 0.7 -Total Square (Post) (cm) 5.0 -Area of Debridement (cm) - Length 2.5 -Area of Debridement (cm) - Width 2 -Total Square (Area) (cm) 5.0 -Tunneling No -Undermining/Tunneling No -Circular Undermining No -Wound/Ulcer Outcome Not Healed -Ulcer Cleansing Rinsed/ Irrigated with Saline -Foul Odor after Cleansing No -Bioengineered Tissue No -Bleeding Controlled with Pressure -Offloading No -Treatment Response Procedure Tolerated Well -Debridement - Muscle / Fascia, 1st No 20sq cm #18 R Lat foot -Time 10:28 -Correct Patient Yes -Correct Side, Site, Position Yes -Correct Procedure Yes -Procedure Performed Yes -Type of Procedure Debridement -Clinical Debridement Subcutaneous -Tissue Removed Subcutaneous -Post Debridement (cm) - Length 0.1 -Post Debridement (cm) - Width 0.1 -Post Debridement (cm) - Depth 0.1 -Total Square (Post) (cm) 0.01 -Area of Debridement (cm) - Length 0.1 -Area of Debridement (cm) - Width 0.1 -Total Square (Area) (cm) 0.01 -Tunneling No -Undermining/Tunneling No -Circular Undermining No -Wound/Ulcer Outcome Not Healed -Bioengineered Tissue No -Bleeding Controlled with NA,Pressure -Offloading No -Treatment Response Procedure Tolerated Well -Debridement - Subq, 1st 20sq cm Yes #16 L Plantar foot -Time 10:30 -Correct Patient Yes -Correct Side, Site, Position Yes -Correct Procedure Yes -Procedure Performed Yes -Type of Procedure Debridement -Clinical Debridement Muscle / Fascia -Tissue Removed Muscle -Post Debridement (cm) - Length 2.9 -Post Debridement (cm) - Width 2.1 -Post Debridement (cm) - Depth 1 -Total Square (Post) (cm) 6.09 -Area of Debridement (cm) - Length 2.9 -Area of Debridement (cm) - Width 2.1 -Total Square (Area) (cm) 6.09 -Tunneling No -Undermining/Tunneling No -Circular Undermining No -Wound/Ulcer Outcome Not Healed -Ulcer Cleansing Rinsed/ Irrigated with Saline -Foul Odor after Cleansing No -Bioengineered Tissue No -Bleeding Controlled with Pressure -Offloading No -Treatment Response Procedure Tolerated Well -Debridement - Muscle / Fascia, 1st Yes 20sq cm Pain Scale: 0-10 Numeric Is Patient Pain Free? Yes WC - Nurse 3 - General Ulcer D/C NN Start: 07/21/21 10:04 Freq: Status: Active Protocol: Activity Type Activity Date Activity User E-Sign Co-Sign Detail Recorded Client Recorded Date Recorded By Document 07/21/21 10:50 DL [id number] 07/21/21 10:55 DL 07/21/21 10:50 Wound Care Nurse 3 #21 RIGHT LAT ANKLE -Ulcer Cleansing Wound Cleanser -Foul Odor after Cleansing No -Primary Dressing Applied Fibracol Plus 4x4 -Primary Dressing Covered/Secured with Dry Gauze & Roll Gauze, Secured with Tape -Fibracol Plus 4x4 1 19-right inferior plantar -Ulcer Cleansing Wound Cleanser -Foul Odor after Cleansing No -Other Dressing moist gauze -Primary Dressing Covered/Secured with Dry Gauze & Roll Gauze, Secured with Tape #18 R Lat foot -Ulcer Cleansing Wound Cleanser -Foul Odor after Cleansing No -Other Dressing moist gauze -Primary Dressing Covered/Secured with Dry Gauze & Roll Gauze, Secured with Tape #16 L Plantar foot -Ulcer Cleansing Wound Cleanser -Foul Odor after Cleansing No -Other Dressing moist gauze -Primary Dressing Covered/Secured with Dry Gauze & Roll Gauze, Secured with Tape Right -Compression Wrap [place] Wrap -Tubular Bandage Double Layer -Size of Tubigrip Used Size E -Size E ($) 1 -Stockings Yes Left -Compression Wrap [place] Wrap -Tubular Bandage Double Layer -Size of Tubigrip Used Size E -Size E ($) 1 Treatment Response Procedure Tolerated Well Pain Scale: 0-10 Numeric Is Patient Pain Free? Yes WC - Visit Discharge Discharge Condition Stable Ambulatory Status Wheelchair Facility Type Home Health Notes: Pt to resume Dakins to all ulcers except R Lat ankle at home Orders Sent Yes Additional Wound Wound debrided: Lateral foot and ankle Laterality: Right Wound Grade/Stage: Freedman 1 Type of Debridement: Excisional debridement Anesthesia Used: 4% Lidocaine Solution Depth: in the subcutaneous layer Percentage of wound debrided: 100 Instrument Used: 5mm curette Tissue Removed: Includes fibrous, devitalized, biofilm, callus and slough tissue Severity: Fat Layer Exposed Amount of bleeding with debridement: Mild Bleeding Controlled with: Pressure Patient tolerated procedure: Patient tolerated procedure well Additional Wound Wound debrided: Plantar foot Laterality: Left Wound Grade/Stage: Freedman 2 Type of Debridement: Excisional debridement Anesthesia Used: 4% Lidocaine Solution Depth: to muscle Percentage of wound debrided: 100 Instrument Used: 5mm curette Tissue Removed: Includes fibrous, devitalized, biofilm, callus and slough tissue Severity: Necrosis of Muscle Amount of bleeding with debridement: Mild Bleeding Controlled with: Pressure Patient tolerated procedure: Patient tolerated procedure well Assessment/Plan Assessment/Plan (1) Chronic ulcer of right foot with fat layer exposed: CODE(S): L97.512 - Non-pressure chronic 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 layer exposed (2) 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: CODE(S): L97.312 - Non-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 (3) Ulcer of left foot with necrosis of muscle: CODE(S): L97.523 - Non-pressure chronic ulcer of other part of left foot with necrosis of muscle (4) Chronic ulcer of right foot with necrosis of muscle: CODE(S): L97.513 - Non-pressure chronic ulcer of other part of right foot with necrosis of muscle (5) Chronic foot pain: CODE(S): M79.673 - Pain in unspecified foot; G89.29 - Other chronic pain QUALIFIERS: Laterality: unspecified laterality Qualified Code(s): M79.673 - Pain in unspecified foot; G89.29 - Other chronic pain (6) Delayed wound healing: CODE(S): T14.8XXD - Other injury of unspecified body region, subsequent encounter (7) Debility: CODE(S): R53.81 - Other malaise (8) Hyperglycemia due to type 2 diabetes mellitus: CODE(S): E11.65 - Type 2 diabetes mellitus with hyperglycemia QUALIFIERS: Diabetes mellitus mcfp insulin use: with mcfp use Qualified Code(s): E11.65 - Type 2 diabetes mellitus with hyperglycemia; Z79.4 - long term care pharmacist (current) use of insulin (9) Charcot's joint of left foot: CODE(S): M14.672 - Charcot's joint, left ankle and foot (10) Charcot's joint of right foot: CODE(S): M14.671 - Charcot's joint, right ankle and foot PLAN: Patient seen and examined. No significant interval change noted to patient's wounds Patient presents today in slippers where drainage from wound sites is easily visible. Patient denies a lot of draiange though. Discussed needing to change dressing more frequently if she is getting a lot of drainage. Patient's [facility] has also contacted us concerning 3 missed appointments with patient and that they will discharge her if she continues to miss appointments. This was relayed to patient. Patient relates multiple excuses as to why this happened but doens't want to claim responsibility herself. Discussed with patient the need to take responsibility for her care if she wants to get better. Discussed needing to see PCP to help her gain better control of her blood sugar. Patient has been instructed to bring CAM boot for offloading modification. She has not brought it. Patient is also noted to have missed multiple wound care center appointments. Discussed using her wheelchair then to offload as she doens't have any appropriate offloading shoe. Patient has had TCC in the past but is noted to have walked on and broken them multiple times. ulcerations were debrided after verbal consent was obtained by the patient. The right plantar foot ulceration was approved for TheraSkin graft application. As patient has been unable to keep the graft in place time we will take a break from the application. Patient was able to obtain the Dakin's as discussed last visit. Patient has since been approved for a snap VAC to her right plantar ulceration. She has not been able to be compliant and keep this on so it has been discontinued. Wounds to be washed with soap and water every other day. Apply dakins to foot wounds and fibracol to ankle wound. Cover with dry sterile dressing bilaterally. To be done every other day. She is reassured no signs of infection are noted today. Patient is to remain strict nonweightbearing. She is noted to have a wheelchair It is noted she is already been undergoing a comprehensive wound healing plan and has delayed and nonhealing. She has had prior bone biopsies, wound culture, skin grafts, total contact cast, multiple hospital visits, surgeries, and intervention with infectious disease. Try to optimize nutrition by offering referral for nutrition patient declined. She has suspected adequate vascular perfusion for healing per her recent noninvasive vascular studies 09/01/2020 with triphasic waveforms noted. Patient's hemoglobin A1c was 13.1% on 12/29/2020. Offloading strongly recommended. Optimal blood sugar control and increased protein intake also discussed. Being forced to stay off her feet at the SNF has allowed the most improvement noted in these wounds in a long time. Since being home wounds have noted to have worsening likely due to her being more active on her feet along with her not getting the nutritional support she needs at home to control her blood sugar and optimize her for healing. All questions were answered and she was advised to call with any further questions or concerns. All signs and symptoms of local and systemic infection were discussed with the patient today. Follow up in 1 week. This note was generated with [employer] dictation software. It may contain incorrect words, spelling, and punctuation that were not noted in checking the note before signing.
[2021-07-28 09:53] VITALS: BP 129/64; PULSE 90; RESP 16; BMI 32.3
[2021-07-28 10:41] LABS: Bedside Glucose 97 mg/dL (70-110)
--- NOTE | 2021-07-28 11:53 | PCM.WC.PN ---
History of Present Illness Date of Service: 07/29/21 Chief Complaint: right foot ulcer left foot ulcer History of Wound: Patient is a 55-year-old female who presents to the clinic for bilateral foot ulcers. Patient has been dealing with wounds to bilateral lower extremities for years. Patient has noted noncompliance including going out of the country or on vacation with wounds without care. Patient has significant delayed healing and foot deformities contributing to these ulcerations. Patient states struggled to understand what she is doing is contributing to her lack of wound healing. Patient was recently at the hospital for gastroenteritis 03/03/21. Patient also noted that time to have worsening right foot with acute Charcot foot noted on x-ray and MRI. Patient was also noted to have multiple new blisters formed during hospital stay with wounds that remain. It was determined during hospital visit the patient was not stable not to go to the operating room. Bedside debridements and cultures were obtained. Patient was started on Levaquin per infectious disease. Patient is to continue wound care and has since followed up with the wound care center. Right foot wound culture from 03/06/2021 with significant for bacterial growth of staph aureus and strep group C. Left foot wound did not appear clinically infected but was polymicrobial upon culture on 03/05/2021. MRI obtained of the right foot was negative for osteomyelitis but showed small focal abscess to lateral plantar foot. Patient is no longer at the SNF facility and has had regression of wound since returning home. Patient has since been readmitted and discharged from the hospital for chest pain. Progress of Wound: Stable Subjective Subjective Patient seen and examined resting comfortably. Patient denies any new pedal complaints. Patient denies any nausea, fever, chills, chest pain, shortness of breath, cough, streaking, purulence. Patient relates some coughing and vomiting lately. She relates that she is this way every year. She thinks is a sinus phone. She relates that she is scheduling appoint with Dr. Pitts to have this looked at. Patient overall looks not like her normal baseline Objective Data Objective Data Vital Signs: Vital Signs Temp Pulse Resp BP 97.4 F L 90 16 129/64 H 07/21/21 10:05 07/28/21 09:53 07/28/21 09:53 07/28/21 09:53 Oxygen Delivery Method Room Air Weight: 91.138 kg Body Mass Index (BMI) 32.3 Lab / Micro Data Labs: Laboratory Results - last 24 hr 07/28/21 10:35: POC Glucose 97 Physical Exam Narrative Const General Appearance: cooperative, sleepy, flat affect Extremity normal capillary refill and no calf tenderness General Extremity: no tenderness to palpation of joints or extremities and other findings Other Details: Capillary refill time less than 3 seconds noted to digits ; Negative for clubbing or cyanosis Skin General Skin Exam: atrophy and dry skin; Negative for ecchymosis, erythema, eschar, pallor or dermatitis Rashes: no rashes Wound Narrative: plantar left foot ulceration. Granular base. Mild maceration noted. Moderate periwound callus tissue noted. There is no erythema or edema or malodor or purulence or other suggestion signs of infection. Serous drainage noted. Plantar right foot ulceration is stable. Granular base. Mild maceration noted. Moderate periwound callus tissue noted. There is no erythema or edema or malodor or purulence or other suggestion signs of infection. Serosanguineous drainage noted. There is some tunneling noted at 10:00 Right lateral ankle ulceration. To level of fascia. No erythema or edema or malodor or purulence or other cyst signs suggestive of infection. Mild serosanguineous drainage noted. Surrounding scar tissue noted. Right lateral foot ulcer much improved without signs of infection Amputations noted to bilateral fifth rays. Charcot foot deformity noted bilaterally. Continued bilateral lower extremity edema noted. No calf tenderness negative Jaswinder and Nuñez sign. DP and PT are diminished bilaterally Neuromuscular Sensory Exam: extremities light-touch: decreased Motor Exam: strength abnormal other (4/5 to all pedal muscle groups) There is foot and Charcot deformities noted to bilateral feet with prominent plantar lateral feet collapse Psych Appearance: normal Debridement Note Debridement Note Wound debrided: Plantar foot and lateral ankle Laterality: Right Wound Grade/Stage: Freedman 1 Type of Debridement: Excisional debridement Anesthesia Used: 4% Lidocaine Solution Depth: in the subcutaneous layer Percentage of wound debrided: 100 Instrument Used: 3mm curette Tissue Removed: includes fibrous, devitalized, biofilm, callus and slough tissue Severity: Fat Layer Exposed Amount of bleeding with debridement: Mild Bleeding Controlled with: Pressure Patient tolerated procedure: Patient tolerated procedure well Post-Debridement Measurements and Additional Note: Post-Debridement Measurements/Treatment WC - Nurse 1 - General Ulcer Assessment Start: 07/21/21 10:04 Freq: Status: Active Protocol: SHANICE Activity Type Activity Date Activity User E-Sign Co-Sign Detail Recorded Client Recorded Date Recorded By Document 07/21/21 10:05 [facility] [id number] 07/21/21 10:12 [facility] Document 07/28/21 09:53 [facility] [id number] 07/28/21 10:03 BM 07/21/21 07/28/21 10:05 09:53 WC - Today's Visit Information Type of service Follow-up Visit Follow-up Visit (Physician/OPHTHALMIC TECHNICIAN APPRENTICE (Physician/OPHTHALMIC TECHNICIAN APPRENTICE ) ) Arrival Mode Wheelchair Wheelchair Transfer Assistance Other None Transfer Assist (Other) 1 stand by Patient Identification Verified (Name & Yes Yes ) Patient Requires Transmission-Based No No Precautions Height and Weight Body Mass Index (BMI) 32.3 32.3 BMI Classification Obese Obese Vital Signs Temperature (97.8 F-99.1 F) 97.4 F L Temperature Source Temporal Temporal Pulse Rate (60-100) 97 90 Pulse Location Monitor Monitor Respiratory Rate (12-18) 16 16 Respiratory rate source Observation Observation Oxygen Delivery Method Room Air Room Air Blood Pressure (90/60-120/80) 135/52 H 129/64 H Blood Pressure Mean (mm Hg) 79 85 Source Monitor Monitor Position Supine Sitting Blood Pressure Location Right Arm Right Arm History Since Last Visit- (Skip if this is Patient's initial visit) Have you changed medications since your No No last visit? Any new allergies or adverse reactions No No Had a fall/change in ADL's that may No No increase risk of falls Signs or symptoms of abuse and/or No No neglect since last visit Have you been in the hospital since your No No last visit? Has dressing in place as prescribed Yes Yes Has compression in place as prescribed Yes No Has offloadiing in place as prescribed Yes No Experienced any changes in pain level or No No management Left Footwear Slipper Other Footwear (Comment) Right Footwear Slipper Other Footwear (Comment) Other Footwear tubis, non skid socks Pain Scale: 0-10 Numeric Is Patient Pain Free? Yes - Nurse 1 - General Ulcer Measurement Start: 07/21/21 10:04 Freq: Status: Active Protocol: Activity Type Activity Date Activity User E-Sign Co-Sign Detail Recorded Client Recorded Date Recorded By Document 07/21/21 10:05 [facility] [id number] 07/21/21 10:12 BM Document 07/28/21 09:53 [facility] [id number] 07/28/21 10:03 [facility] 07/21/21 07/28/21 10:05 09:53 Wound Center Nurse 1 #21 RIGHT LAT ANKLE -Combined with other wound No No -Current Size (cm) - Length 0.5 0.6 -Current Size (cm) - Width 0.7 0.8 -Current Size (cm) - Depth 0.1 0.2 -Total Square Cm 0.35 0.48 -Photo Taken No No -Epithelialization Small 1-33% Small 1-33% -Tunneling No No -Undermining/Tunneling No No -Circular Undermining No No -Exudate Amt Small Small -Exudate Type Serosanguineous Serosanguineous -Wound Margin Distinct, Distinct, Outline Outline Attached Attached -Granulation Amt Large (67-100%) Medium (34-66%) -Granulation Quality [place] -Slough/Fibrin No Yes -Necrosis Amt None Present (0 Large (67-100%) %) -Necrotic Tissue Type Adherent Slough -Texture (Natacha-wound Skin Appearance) Assessed, Assessed, Scarring Fluctuance -Moisture (Natacha-wound Skin Appearance) Assessed Assessed -Color (Natacha-wound Skin Appearance) Assessed, No Abnormality, Erythema Erythema -Temperature (Natacha-wound Skin No Abnormality No Abnormality Appearance) (Pt Warm) (Pt Warm) -Tenderness on Palpation (Natacha-wound No No Skin Appearance) -Ulcer Cleansing Soap and Water Soap and Water -Foul Odor after Cleansing No No -Anesthetic Used 4% Lidocaine 4% Lidocaine Solution Solution 19-right inferior plantar -Combined with other wound No No -Current Size (cm) - Length 2.5 2.8 -Current Size (cm) - Width 2 2.1 -Current Size (cm) - Depth 0.5 1 -Total Square Cm 5.0 5.88 -Photo Taken No No -Epithelialization None Present None Present -Tunneling No No -Undermining/Tunneling Yes Yes -Undermining/Tunneling Starts (O'clock 9 9 ) -Undermining/Tunneling Ends (O'clock) 1 1 -Maximum Distance (cm) 0.5 0.6 -Circular Undermining No No -Exudate Amt Medium Large -Exudate Type Serosanguineous Serosanguineous -Wound Margin Thickened & Thickened Rolled Under -Granulation Amt Large (67-100%) Large (67-100%) -Granulation Quality Red -Slough/Fibrin Yes No -Necrosis Amt Small (1-33%) None Present (0 %) -Necrotic Tissue Type Adherent Slough -Texture (Natacha-wound Skin Appearance) Assessed,Callus Assessed, ,Scarring Scarring -Moisture (Natacha-wound Skin Appearance) Assessed, Assessed,Dry/ Maceration,Dry/ Scaly Scaly -Color (Natacha-wound Skin Appearance) Assessed,Palor Assessed -Temperature (Natacha-wound Skin No Abnormality No Abnormality Appearance) (Pt Warm) (Pt Warm) -Tenderness on Palpation (Natacha-wound No No Skin Appearance) -Ulcer Cleansing Soap and Water Soap and Water -Foul Odor after Cleansing No No -Anesthetic Used 4% Lidocaine 4% Lidocaine Solution Solution #18 R Lat foot -Combined with other wound No No -Current Size (cm) - Length 0.1 0.1 -Current Size (cm) - Width 0.1 0.1 -Current Size (cm) - Depth 0.1 0.1 -Total Square Cm 0.01 0.01 -Photo Taken No -Epithelialization Large 67-100% Large 67-100% -Texture (Natacha-wound Skin Appearance) Assessed -Moisture (Natacha-wound Skin Appearance) Assessed -Color (Natacha-wound Skin Appearance) Assessed -Temperature (Natacha-wound Skin No Abnormality Appearance) (Pt Warm) -Tenderness on Palpation (Natacha-wound No Skin Appearance) -Ulcer Cleansing Soap and Water -Foul Odor after Cleansing No -Anesthetic Used 4% Lidocaine Solution #16 L Plantar foot -Combined with other wound No No -Current Size (cm) - Length 2.7 2.8 -Current Size (cm) - Width 2.3 2.1 -Current Size (cm) - Depth 0.5 1.1 -Total Square Cm 6.21 5.88 -Photo Taken No No -Epithelialization None Present None Present -Tunneling No No -Undermining/Tunneling Yes Yes -Undermining/Tunneling Starts (O'clock 10 11 ) -Undermining/Tunneling Ends (O'clock) 1 2 -Maximum Distance (cm) 0.4 0.6 -Undermining/Tunneling Starts #2 (O' 4 clock) -Undermining/Tunneling Ends #2 (O' 6 clock) -Maximum Distance #2 (cm) 0.4 -Circular Undermining No No -Exudate Amt Medium -Exudate Type Serosanguineous Serosanguineous -Wound Margin Thickened & Thickened Rolled Under -Granulation Amt Large (67-100%) Large (67-100%) -Granulation Quality Red Red -Slough/Fibrin Yes No -Necrosis Amt Small (1-33%) None Present (0 %) -Necrotic Tissue Type Adherent Slough -Texture (Natacha-wound Skin Appearance) Assessed,Callus Assessed, ,Scarring Scarring -Moisture (Natacha-wound Skin Appearance) Assessed,Dry/ No Abnormality, Scaly Dry/Scaly -Color (Natacha-wound Skin Appearance) Assessed Assessed -Temperature (Natacha-wound Skin No Abnormality No Abnormality Appearance) (Pt Warm) (Pt Warm) -Tenderness on Palpation (Natacha-wound No No Skin Appearance) -Ulcer Cleansing Soap and Water Soap and Water -Foul Odor after Cleansing No No -Anesthetic Used 4% Lidocaine 4% Lidocaine Solution Solution Lower Limb Edema Present Yes Right Calf (cm) 39 Right Ankle (cm) 23.6 Left Calf (cm) 38 Left Ankle (cm) 24.3 WC - Nurse 2 - General Ulcer CM Notes Start: 07/21/21 10:04 Freq: Status: Active Protocol: Activity Type Activity Date Activity User E-Sign Co-Sign Detail Recorded Client Recorded Date Recorded By Document 07/21/21 10:25 [id number] 07/21/21 10:37 Document 07/28/21 10:26 [id number] 07/28/21 10:40 07/21/21 07/28/21 10:25 10:26 Wound Center Nurse 2 #21 RIGHT LAT ANKLE -Time 10:28 10:33 -Correct Patient Yes Yes -Correct Side, Site, Position Yes Yes -Correct Procedure Yes Yes -Procedure Performed Yes Yes -Type of Procedure Debridement Debridement -Clinical Debridement Muscle / Fascia Subcutaneous -Tissue Removed Fascia Dermis -Post Debridement (cm) - Length 0.5 0.5 -Post Debridement (cm) - Width 1.2 1 -Post Debridement (cm) - Depth 0.1 0.1 -Total Square (Post) (cm) 0.60 0.5 -Area of Debridement (cm) - Length 0.5 0.5 -Area of Debridement (cm) - Width 1.2 1 -Total Square (Area) (cm) 0.60 0.5 -Tunneling No No -Undermining/Tunneling No No -Circular Undermining No No -Wound/Ulcer Outcome Not Healed Not Healed -Ulcer Cleansing Rinsed/ Rinsed/ Irrigated with Irrigated with Saline Saline -Foul Odor after Cleansing No Yes, Due to Product Use -Bioengineered Tissue No No -Bleeding Controlled with Pressure Pressure -Offloading No No -Treatment Response Procedure Procedure Tolerated Well Tolerated Well -Debridement - Subq, 1st 20sq cm No -Debridement - Muscle / Fascia, 1st No 20sq cm 19-right inferior plantar -Time 10:28 10:33 -Correct Patient Yes Yes -Correct Side, Site, Position Yes Yes -Correct Procedure Yes Yes -Procedure Performed Yes Yes -Type of Procedure Debridement Debridement -Clinical Debridement Muscle / Fascia Subcutaneous -Tissue Removed Muscle Subcutaneous -Post Debridement (cm) - Length 2.5 3.2 -Post Debridement (cm) - Width 2 2.3 -Post Debridement (cm) - Depth 0.7 1.1 -Total Square (Post) (cm) 5.0 7.36 -Area of Debridement (cm) - Length 2.5 3.2 -Area of Debridement (cm) - Width 2 2.3 -Total Square (Area) (cm) 5.0 7.36 -Tunneling No No -Undermining/Tunneling No No -Circular Undermining No No -Wound/Ulcer Outcome Not Healed Not Healed -Ulcer Cleansing Rinsed/ Rinsed/ Irrigated with Irrigated with Saline Saline -Foul Odor after Cleansing No No -Bioengineered Tissue No No -Bleeding Controlled with Pressure Pressure -Offloading No Yes -Type of Offloading Camwalker -Treatment Response Procedure Procedure Tolerated Well Tolerated Well -Debridement - Subq, 1st 20sq cm No -Debridement - Muscle / Fascia, 1st No 20sq cm #18 R Lat foot -Time 10:28 10:34 -Correct Patient Yes No -Correct Side, Site, Position Yes No -Correct Procedure Yes No -Procedure Performed Yes No -Type of Procedure Debridement -Clinical Debridement Subcutaneous -Tissue Removed Subcutaneous -Post Debridement (cm) - Length 0.1 0 -Post Debridement (cm) - Width 0.1 0 -Post Debridement (cm) - Depth 0.1 0 -Total Square (Post) (cm) 0.01 0 -Area of Debridement (cm) - Length 0.1 0 -Area of Debridement (cm) - Width 0.1 0 -Total Square (Area) (cm) 0.01 0 -Tunneling No No -Undermining/Tunneling No No -Circular Undermining No No -Wound/Ulcer Outcome Not Healed Healed- Epithelialized -Ulcer Cleansing Rinsed/ Irrigated with Saline -Foul Odor after Cleansing No -Bioengineered Tissue No No -Bleeding Controlled with NA,Pressure Pressure -Offloading No No -Treatment Response Procedure Procedure Tolerated Well Tolerated Well -Debridement - Subq, 1st 20sq cm Yes No #16 L Plantar foot -Time 10:30 10:35 -Correct Patient Yes Yes -Correct Side, Site, Position Yes Yes -Correct Procedure Yes Yes -Procedure Performed Yes Yes -Type of Procedure Debridement Debridement -Clinical Debridement Muscle / Fascia Subcutaneous -Tissue Removed Muscle Subcutaneous -Post Debridement (cm) - Length 2.9 3 -Post Debridement (cm) - Width 2.1 2.1 -Post Debridement (cm) - Depth 1 1.4 -Total Square (Post) (cm) 6.09 6.3 -Area of Debridement (cm) - Length 2.9 3 -Area of Debridement (cm) - Width 2.1 2.1 -Total Square (Area) (cm) 6.09 6.3 -Tunneling No No -Undermining/Tunneling No No -Circular Undermining No No -Wound/Ulcer Outcome Not Healed Not Healed -Ulcer Cleansing Rinsed/ Rinsed/ Irrigated with Irrigated with Saline Saline -Foul Odor after Cleansing No No -Bioengineered Tissue No No -Bleeding Controlled with Pressure Pressure -Offloading No No -Treatment Response Procedure Procedure Tolerated Well Tolerated Well -Debridement - Subq, 1st 20sq cm Yes -Debridement - Muscle / Fascia, 1st Yes 20sq cm Pain Scale: 0-10 Numeric Is Patient Pain Free? Yes WC - Nurse 3 - General Ulcer D/C NN Start: 07/21/21 10:04 Freq: Status: Active Protocol: Activity Type Activity Date Activity User E-Sign Co-Sign Detail Recorded Client Recorded Date Recorded By Document 07/21/21 10:50 DL [id number] 07/21/21 10:55 DL Document 07/28/21 11:05 [facility] [id number] 07/28/21 11:06 BMF 07/21/21 07/28/21 10:50 11:05 Wound Care Nurse 3 #21 RIGHT LAT ANKLE -Ulcer Cleansing Wound Cleanser Rinsed/ Irrigated with Saline -Foul Odor after Cleansing No No -Primary Dressing Applied Fibracol Plus C Hydrogel ($) 4x4 -Primary Dressing Covered/Secured with Dry Gauze & Dry Gauze & Roll Gauze, Roll Gauze, Secured with Secured with Tape Tape -Fibracol Plus 4x4 1 19-right inferior plantar -Ulcer Cleansing Wound Cleanser Rinsed/ Irrigated with Saline -Foul Odor after Cleansing No No -Primary Dressing Applied Other -Other Dressing moist gauze dakins moist gauze -Primary Dressing Covered/Secured with Dry Gauze & Dry Gauze & Roll Gauze, Roll Gauze, Secured with Secured with Tape Tape,Other -Other Covering abd #18 R Lat foot -Ulcer Cleansing Wound Cleanser -Foul Odor after Cleansing No -Other Dressing moist gauze -Primary Dressing Covered/Secured with Dry Gauze & Roll Gauze, Secured with Tape #16 L Plantar foot -Ulcer Cleansing Wound Cleanser Rinsed/ Irrigated with Saline -Foul Odor after Cleansing No -Primary Dressing Applied Other -Other Dressing moist gauze dakins moist gauze -Primary Dressing Covered/Secured with Dry Gauze & Dry Gauze & Roll Gauze, Roll Gauze, Secured with Secured with Tape Tape,Other -Other Covering abd Right -Compression Wrap [place] Wrap -Tubular Bandage Double Layer Single Layer -Size of Tubigrip Used Size E Size D -Size D ($) 1 -Size E ($) 1 -Stockings Yes Left -Compression Wrap [place] Wrap -Tubular Bandage Double Layer Single Layer -Size of Tubigrip Used Size E Size D -Size D ($) 1 -Size E ($) 1 Treatment Response Procedure Tolerated Well Pain Scale: 0-10 Numeric Is Patient Pain Free? Yes Yes WC - Visit Discharge Discharge Condition Stable Stable Ambulatory Status Wheelchair Wheelchair Facility Type Home Health Home Health Notes: Pt to resume Dakins to all ulcers except R Lat ankle at home Orders Sent Yes Additional Wound Wound debrided: Plantar foot Laterality: Left Wound Grade/Stage: Freedman 1 Type of Debridement: Excisional debridement Anesthesia Used: 4% Lidocaine Solution Depth: in the subcutaneous layer Percentage of wound debrided: 100 Instrument Used: 3mm curette Tissue Removed: Includes fibrous, devitalized, biofilm, callus and slough tissue Severity: Fat Layer Exposed Amount of bleeding with debridement: Mild Bleeding Controlled with: Pressure Patient tolerated procedure: Patient tolerated procedure well Assessment/Plan Assessment/Plan (1) Chronic ulcer of right foot with fat layer exposed: CODE(S): L97.512 - Non-pressure chronic 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 layer exposed (2) 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: CODE(S): L97.312 - Non-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 (3) Ulcer of left foot with necrosis of muscle: CODE(S): L97.523 - Non-pressure chronic ulcer of other part of left foot with necrosis of muscle (4) Chronic ulcer of right foot with necrosis of muscle: CODE(S): L97.513 - Non-pressure chronic ulcer of other part of right foot with necrosis of muscle (5) Chronic foot pain: CODE(S): M79.673 - Pain in unspecified foot; G89.29 - Other chronic pain QUALIFIERS: Laterality: unspecified laterality Qualified Code(s): M79.673 - Pain in unspecified foot; G89.29 - Other chronic pain (6) Delayed wound healing: CODE(S): T14.8XXD - Other injury of unspecified body region, subsequent encounter (7) Debility: CODE(S): R53.81 - Other malaise (8) Hyperglycemia due to type 2 diabetes mellitus: CODE(S): E11.65 - Type 2 diabetes mellitus with hyperglycemia QUALIFIERS: Diabetes mellitus terminal block assembler insulin use: with terminal block assembler use Qualified Code(s): E11.65 - Type 2 diabetes mellitus with hyperglycemia; Z79.4 - USP (current) use of insulin (9) Charcot's joint of left foot: CODE(S): M14.672 - Charcot's joint, left ankle and foot (10) Charcot's joint of right foot: CODE(S): M14.671 - Charcot's joint, right ankle and foot PLAN: Patient seen and examined. No significant interval change noted to patient's wounds Patient wounds are largely the same. Patient does not appear to be herself today. Blood sugar and vitals were noted to be normal or at patient's baseline as regards BP. ulcerations were debrided after verbal consent was obtained by the patient. The right plantar foot ulceration was approved for TheraSkin graft application. As patient has been unable to keep the graft in place time we have stopped applications. Patient has since been approved for a snap VAC to her right plantar ulceration. She has not been able to be compliant and keep this on so it has been discontinued. Patient was able to obtain the Dakin's as discussed last visit. Wounds to be washed with soap and water every other day. Apply dakins to foot wounds and fibracol to ankle wound. Cover with dry sterile dressing bilaterally. To be done every other day. She is reassured no signs of infection are noted today. Patient is to remain strict nonweightbearing. She is noted to have a wheelchair. She has brought her 2 CAM boots today to be modified. It should be noted that multiple stink bugs were found in the boots. Offloading felt inserts were applied to both CAM boot at area of ulcerations. Discussed with patient that just because these were modified doesn't mean she can walk all over the place. It is noted she is already been undergoing a comprehensive wound healing plan and has delayed and nonhealing. She has had prior bone biopsies, wound culture, skin grafts, total contact cast, multiple hospital visits, surgeries, and intervention with infectious disease. Try to optimize nutrition by offering referral for nutrition patient declined. She has suspected adequate vascular perfusion for healing per her recent noninvasive vascular studies 09/01/2020 with triphasic waveforms noted. Patient's hemoglobin A1c was 13.1% on 12/29/2020. Offloading strongly recommended. Optimal blood sugar control and increased protein intake also discussed. Being forced to stay off her feet at the SNF has allowed the most improvement noted in these wounds in a long time. Since being home wounds have noted to have worsening likely due to her being more active on her feet along with her not getting the nutritional support she needs at home to control her blood sugar and optimize her for healing. All questions were answered and she was advised to call with any further questions or concerns. All signs and symptoms of local and systemic infection were discussed with the patient today. Patient is to follow up with Dr Eric as discussed. Follow up in 1 week. Patient is aware that I am leaving the Wound care center and that her care will be assumed by another practicioner. Patient understands and is agreeable to plan. This note was generated with Casm[employer] software. It may contain incorrect words, spelling, and punctuation that were not noted in checking the note before signing.
[2021-08-05 15:31] VITALS: BP 167/81; PULSE 97; RESP 18; TEMP 36.4; BMI 32.3
--- NOTE | 2021-08-05 16:30 | PN.PCM_ITS ---
History of Present Illness Date of Service: 08/05/21 Chief Complaint: right foot ulcer Right ankle ulcer left foot ulcer History of Wound: Patient is a 56-year-old female who presents to the clinic for bilateral foot ulcers. Patient has been dealing with wounds to bilateral lower extremities for years. Patient has noted noncompliance including going out of the country or on vacation with wounds without care. Patient has significant delayed healing and foot deformities contributing to these ulcerations. Patient states struggled to understand what she is doing is contributing to her lack of wound healing. Patient was recently at the hospital for gastroenteritis 03/03/21. Patient also noted that time to have worsening right foot with acute Charcot foot noted on x- ray and MRI. Patient was also noted to have multiple new blisters formed during hospital stay with wounds that remain. It was determined during hospital visit the patient was not stable not to go to the operating room. Bedside debridements and cultures were obtained. Patient was started on Levaquin per infectious disease. Patient is to continue wound care and has since followed up with the wound care center. Right foot wound culture from 03/06/2021 with significant for bacterial growth of staph aureus and strep group C. Left foot wound did not appear clinically infected but was polymicrobial upon culture on 03/05/2021. MRI obtained of the right foot was negative for osteomyelitis but showed small focal abscess to lateral plantar foot. Patient is no longer at the SNF facility and has had regression of wound since returning home. Patient has since been readmitted and discharged from the hospital for chest pain. Since last week, she has tried to improve her use of bilateral CAM Walker boots. She is also trying to increase her whole food intake for vegetables a day. Her A1c level was last at over 9%. This is decreased from about 13%. Progress of Wound: Stable Objective Data Objective Data Vital Signs: Vital Signs Temp Pulse Resp BP 97.6 F L 97 18 167/81 H 08/05/21 15:31 08/05/21 15:31 08/05/21 15:31 08/05/21 15:31 Oxygen Delivery Method Room Air Weight: 91.138 kg Body Mass Index (BMI) 32.3 Physical Exam Narrative Const General Appearance: cooperative, flat affect Extremity normal capillary refill and no calf tenderness General Extremity: no tenderness to palpation of joints or extremities and other findings Other Details: Capillary refill time less than 3 seconds noted to digits ; Negative for clubbing or cyanosis Skin General Skin Exam: atrophy and dry skin; Negative for ecchymosis, erythema, eschar, pallor or dermatitis Rashes: no rashes Wound Narrative: plantar left foot ulceration. Granular base. Mild maceration noted. Moderate periwound callus tissue noted. There is no erythema or edema or malodor or purulence or other suggestion signs of infection. Serous drainage noted. Plantar right foot ulceration is stable. Granular base. Mild maceration noted. Moderate periwound callus tissue noted. There is no erythema or edema or malodor or purulence or other suggestion signs of infection. Serosanguineous drainage noted. Right lateral ankle ulceration. Superficial with no deep tissue exposure at this time. No erythema or edema or malodor or purulence or other cyst signs suggestive of infection. Mild serosanguineous drainage noted. Surrounding scar tissue noted. 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 Charcot foot deformity noted bilaterally. Continued bilateral lower extremity edema noted. No calf tenderness negative Jaswinder and Nuñez sign. DP and PT are diminished bilaterally Neuromuscular Sensory Exam: extremities light-touch: decreased Motor Exam: strength abnormal other (4/5 to all pedal muscle groups) There is foot and Charcot deformities noted to bilateral feet with prominent plantar lateral feet collapse Psych Appearance: normal Debridement Note Debridement Note Wound debrided: Plantar right foot, plantar left foot, lateral right ankle Wound Grade/Stage: 1 Type of Debridement: Excisional debridement Anesthesia Used: 4% Lidocaine Solution Depth: in the subcutaneous layer Percentage of wound debrided: 100 Instrument Used: #15 blade Tissue Removed: fibrous, devitalized subcutaneous, biofilm, slough Severity: Fat Layer Exposed Amount of bleeding with debridement: Mild Bleeding Controlled with: Pressure Patient tolerated procedure: Patient tolerated procedure well Post-Debridement Measurements and Additional Note: Post-Debridement Measurements/Treatment TENNILLE - Nurse 1 - General Ulcer Assessment Start: 07/21/21 10:04 Freq: Status: Active Protocol: SHANICE Activity Type Activity Date Activity User E-Sign Co-Sign Detail Recorded Client Recorded Date Recorded By Document 07/21/21 10:[address] [facility] [id number] 07/21/21 10:12 BMF Document 07/28/21 09:53 BM [id number] 07/28/21 10:03 BM Document 10/27/21 15:31 RB [id number] 08/05/21 15:44 RB 07/21/21 07/28/21 08/05/21 10:05 09:53 15:31 WC - Today's Visit Information Type of service Follow-up Visit Follow-up Visit Follow-up Visit (Physician/NEONATAL SPECIALIST (Physician/NEONATAL SPECIALIST (Physician/NEONATAL SPECIALIST ) ) ) Arrival Mode Wheelchair Wheelchair Wheelchair Transfer Assistance Other None Manual,None Transfer Assist (Other) 1 stand by Patient Identification Verified (Name & Yes Yes Yes ) Patient Requires Transmission-Based No No No Precautions Height and Weight Body Mass Index (BMI) 32.3 32.3 32.3 BMI Classification Obese Obese Obese Vital Signs Temperature (97.8 F-99.1 F) 97.4 F L 97.6 F L Temperature Source Temporal Temporal Temporal Pulse Rate (60-100) 97 90 97 Pulse Location Monitor Monitor Monitor Respiratory Rate (12-18) 16 16 18 Respiratory rate source Observation Observation Observation Oxygen Delivery Method Room Air Room Air Blood Pressure (90/60-120/80) 135/52 H 129/64 H 167/81 H Blood Pressure Mean (mm Hg) 79 85 109 Source Monitor Monitor Monitor Position Supine Sitting Sitting Blood Pressure Location Right Arm Right Arm Right Arm History Since Last Visit- (Skip if this is Patient's initial visit) Have you changed medications since your No No No last visit? Any new allergies or adverse reactions No No No Had a fall/change in ADL's that may No No No increase risk of falls Signs or symptoms of abuse and/or No No No neglect since last visit Have you been in the hospital since your No No No last visit? Has dressing in place as prescribed Yes Yes Yes Has compression in place as prescribed Yes No No Has offloadiing in place as prescribed Yes No No Experienced any changes in pain level or No No No management Left Footwear Slipper Other Footwear (Comment) Right Footwear Slipper Other Footwear (Comment) Other Footwear tubis, non skid socks Pain Scale: 0-10 Numeric Is Patient Pain Free? Yes Yes - Nurse 1 - General Ulcer Measurement Start: 07/21/21 10:04 Freq: Status: Active Protocol: Activity Type Activity Date Activity User E-Sign Co-Sign Detail Recorded Client Recorded Date Recorded By Document 07/21/21 10:[address] [facility] [id number] 07/21/21 10:[address] [facility] Document 07/28/21 09:[address] [facility] [id number] 07/28/21 10:[address] [facility] Document 08/05/21 15:31 RB [id number] 08/05/21 15:44 RB 07/21/21 07/28/21 08/05/21 10:05 09:53 15:31 Wound Center Nurse 1 #21 RIGHT LAT ANKLE -Combined with other wound No No No -Current Size (cm) - Length 0.5 0.6 0.4 -Current Size (cm) - Width 0.7 0.8 0.7 -Current Size (cm) - Depth 0.1 0.2 0.1 -Total Square Cm 0.35 0.48 0.28 -Photo Taken No No -Epithelialization Small 1-33% Small 1-33% -Tunneling No No No -Undermining/Tunneling No No No -Circular Undermining No No No -Exudate Amt Small Small Large -Exudate Type Serosanguineous Serosanguineous Serosanguineous -Wound Margin Distinct, Distinct, Flat & Intact Outline Outline Attached Attached -Granulation Amt Large (67-100%) Medium (34-66%) Medium (34-66%) -Granulation Quality [place],Red -Slough/Fibrin No Yes Yes -Necrosis Amt None Present (0 Large (67-100%) Small (1-33%) %) -Necrotic Tissue Type Adherent Slough Adherent Slough -Structure Exposed N/A -Texture (Natacha-wound Skin Appearance) Assessed, Assessed, Assessed Scarring Fluctuance -Moisture (Natacha-wound Skin Appearance) Assessed Assessed Assessed -Color (Natacha-wound Skin Appearance) Assessed, No Abnormality, Assessed Erythema Erythema -Temperature (Natacha-wound Skin No Abnormality No Abnormality No Abnormality Appearance) (Pt Warm) (Pt Warm) (Pt Warm) -Tenderness on Palpation (Natacha-wound No No No Skin Appearance) -Ulcer Cleansing Soap and Water Soap and Water Wound Cleanser -Foul Odor after Cleansing No No No -Anesthetic Used 4% Lidocaine 4% Lidocaine 4% Lidocaine Solution Solution Solution 19-right inferior plantar -Combined with other wound No No No -Current Size (cm) - Length 2.5 2.8 2.5 -Current Size (cm) - Width 2 2.1 2.2 -Current Size (cm) - Depth 0.5 1 0.9 -Total Square Cm 5.0 5.88 5.50 -Photo Taken No No -Epithelialization None Present None Present -Tunneling No No No -Undermining/Tunneling Yes Yes No -Undermining/Tunneling Starts (O'clock 9 9 ) -Undermining/Tunneling Ends (O'clock) 1 1 -Maximum Distance (cm) 0.5 0.6 -Circular Undermining No No No -Exudate Amt Medium Large Large -Exudate Type Serosanguineous Serosanguineous Serosanguineous -Wound Margin Thickened & Thickened Thickened & Rolled Under Rolled Under -Granulation Amt Large (67-100%) Large (67-100%) Medium (34-66%) -Granulation Quality [place] -Slough/Fibrin Yes No Yes -Necrosis Amt Small (1-33%) None Present (0 Large (67-100%) %) -Necrotic Tissue Type Adherent Slough Adherent Slough -Structure Exposed N/A -Texture (Natacha-wound Skin Appearance) Assessed,Callus Assessed, Callus ,Scarring Scarring -Moisture (Natacha-wound Skin Appearance) Assessed, Assessed,Dry/ Assessed Maceration,Dry/ Scaly Scaly -Color (Natacha-wound Skin Appearance) Assessed,Palor Assessed Assessed -Temperature (Natacha-wound Skin No Abnormality No Abnormality No Abnormality Appearance) (Pt Warm) (Pt Warm) (Pt Warm) -Tenderness on Palpation (Natacha-wound No No No Skin Appearance) -Ulcer Cleansing Soap and Water Soap and Water Wound Cleanser -Foul Odor after Cleansing No No No -Anesthetic Used 4% Lidocaine 4% Lidocaine 4% Lidocaine Solution Solution Solution #18 R Lat foot -Combined with other wound No No -Current Size (cm) - Length 0.1 0.1 -Current Size (cm) - Width 0.1 0.1 -Current Size (cm) - Depth 0.1 0.1 -Total Square Cm 0.01 0.01 -Photo Taken No -Epithelialization Large 67-100% Large 67-100% -Texture (Natacha-wound Skin Appearance) Assessed -Moisture (Natacha-wound Skin Appearance) Assessed -Color (Natacha-wound Skin Appearance) Assessed -Temperature (Natacha-wound Skin No Abnormality Appearance) (Pt Warm) -Tenderness on Palpation (Natacha-wound No Skin Appearance) -Ulcer Cleansing Soap and Water -Foul Odor after Cleansing No -Anesthetic Used 4% Lidocaine Solution #16 L Plantar foot -Combined with other wound No No No -Current Size (cm) - Length 2.7 2.8 3 -Current Size (cm) - Width 2.3 2.1 2.4 -Current Size (cm) - Depth 0.5 1.1 1.1 -Total Square Cm 6.21 5.88 7.2 -Photo Taken No No -Epithelialization None Present None Present -Tunneling No No No -Undermining/Tunneling Yes Yes No -Undermining/Tunneling Starts (O'clock 10 11 ) -Undermining/Tunneling Ends (O'clock) 1 2 -Maximum Distance (cm) 0.4 0.6 -Undermining/Tunneling Starts #2 (O' 4 clock) -Undermining/Tunneling Ends #2 (O' 6 clock) -Maximum Distance #2 (cm) 0.4 -Circular Undermining No No No -Exudate Amt Medium Large -Exudate Type Serosanguineous Serosanguineous Serosanguineous -Wound Margin Thickened & Thickened Thickened & Rolled Under Rolled Under -Granulation Amt Large (67-100%) Large (67-100%) Large (67-100%) -Granulation Quality Red [place],Red -Slough/Fibrin Yes No Yes -Necrosis Amt Small (1-33%) None Present (0 Medium (34-66%) %) -Necrotic Tissue Type Adherent Slough Adherent Slough -Structure Exposed N/A -Texture (Natacha-wound Skin Appearance) Assessed,Callus Assessed, Callus ,Scarring Scarring -Moisture (Natacha-wound Skin Appearance) Assessed,Dry/ No Abnormality, Assessed Scaly Dry/Scaly -Color (Natacha-wound Skin Appearance) Assessed Assessed Assessed -Temperature (Natacha-wound Skin No Abnormality No Abnormality No Abnormality Appearance) (Pt Warm) (Pt Warm) (Pt Warm) -Tenderness on Palpation (Natacha-wound No No No Skin Appearance) -Ulcer Cleansing Soap and Water Soap and Water Wound Cleanser -Foul Odor after Cleansing No No No -Anesthetic Used 4% Lidocaine 4% Lidocaine 4% Lidocaine Solution Solution Solution Lower Limb Edema Present Yes Yes Right Calf (cm) 39 43 Right Ankle (cm) 23.6 25.5 Left Calf (cm) 38 43.5 Left Ankle (cm) 24.3 25.8 - Nurse 2 - General Ulcer CM Notes Start: 07/21/21 10:04 Freq: Status: Active Protocol: Activity Type Activity Date Activity User E-Sign Co-Sign Detail Recorded Client Recorded Date Recorded By Document 07/21/21 10:25 [id number] 07/21/21 10:37 JF Document 07/28/21 10:26 [id number] 07/28/21 10:40 Document 08/05/21 16:01 [id number] 08/05/21 16:09 07/21/21 07/28/21 08/05/21 10:25 10:26 16:01 Wound Center Nurse 2 #21 RIGHT LAT ANKLE -Time 10:28 10:33 16:01 -Correct Patient Yes Yes Yes -Correct Side, Site, Position Yes Yes Yes -Correct Procedure Yes Yes Yes -Procedure Performed Yes Yes Yes -Type of Procedure Debridement Debridement Debridement -Clinical Debridement Muscle / Fascia Subcutaneous Subcutaneous -Tissue Removed Fascia Dermis Subcutaneous -Post Debridement (cm) - Length 0.5 0.5 0.5 -Post Debridement (cm) - Width 1.2 1 0.7 -Post Debridement (cm) - Depth 0.1 0.1 0.1 -Total Square (Post) (cm) 0.60 0.5 0.35 -Area of Debridement (cm) - Length 0.5 0.5 0.5 -Area of Debridement (cm) - Width 1.2 1 0.7 -Total Square (Area) (cm) 0.60 0.5 0.35 -Tunneling No No No -Undermining/Tunneling No No No -Circular Undermining No No No -Wound/Ulcer Outcome Not Healed Not Healed Not Healed -Ulcer Cleansing Rinsed/ Rinsed/ Rinsed/ Irrigated with Irrigated with Irrigated with Saline Saline Saline -Foul Odor after Cleansing No Yes, Due to Yes, Due to Product Use Product Use -Bioengineered Tissue No No No -Bleeding Controlled with Pressure Pressure Pressure -Offloading No No Yes -Type of Offloading Camwalker -Treatment Response Procedure Procedure Procedure Tolerated Well Tolerated Well Tolerated Well -Debridement - Subq, 1st 20sq cm No No -Debridement - Muscle / Fascia, 1st No 20sq cm 19-right inferior plantar -Time 10:28 10:33 16:02 -Correct Patient Yes Yes Yes -Correct Side, Site, Position Yes Yes Yes -Correct Procedure Yes Yes Yes -Procedure Performed Yes Yes Yes -Type of Procedure Debridement Debridement Debridement -Clinical Debridement Muscle / Fascia Subcutaneous Subcutaneous -Tissue Removed Muscle Subcutaneous Subcutaneous -Post Debridement (cm) - Length 2.5 3.2 2.5 -Post Debridement (cm) - Width 2 2.3 2.3 -Post Debridement (cm) - Depth 0.7 1.1 1 -Total Square (Post) (cm) 5.0 7.36 5.75 -Area of Debridement (cm) - Length 2.5 3.2 2.5 -Area of Debridement (cm) - Width 2 2.3 2.3 -Total Square (Area) (cm) 5.0 7.36 5.75 -Tunneling No No No -Undermining/Tunneling No No No -Circular Undermining No No No -Wound/Ulcer Outcome Not Healed Not Healed Not Healed -Ulcer Cleansing Rinsed/ Rinsed/ Rinsed/ Irrigated with Irrigated with Irrigated with Saline Saline Saline -Foul Odor after Cleansing No No No -Bioengineered Tissue No No No -Bleeding Controlled with Pressure Pressure Pressure -Offloading No Yes Yes -Type of Offloading Camwalker Camwalker -Treatment Response Procedure Procedure Procedure Tolerated Well Tolerated Well Tolerated Well -Debridement - Subq, 1st 20sq cm No No -Debridement - Muscle / Fascia, 1st No 20sq cm #18 R Lat foot -Time 10:28 10:34 -Correct Patient Yes No -Correct Side, Site, Position Yes No -Correct Procedure Yes No -Procedure Performed Yes No -Type of Procedure Debridement -Clinical Debridement Subcutaneous -Tissue Removed Subcutaneous -Post Debridement (cm) - Length 0.1 0 -Post Debridement (cm) - Width 0.1 0 -Post Debridement (cm) - Depth 0.1 0 -Total Square (Post) (cm) 0.01 0 -Area of Debridement (cm) - Length 0.1 0 -Area of Debridement (cm) - Width 0.1 0 -Total Square (Area) (cm) 0.01 0 -Tunneling No No -Undermining/Tunneling No No -Circular Undermining No No -Wound/Ulcer Outcome Not Healed Healed- Epithelialized -Ulcer Cleansing Rinsed/ Irrigated with Saline -Foul Odor after Cleansing No -Bioengineered Tissue No No -Bleeding Controlled with NA,Pressure Pressure -Offloading No No -Treatment Response Procedure Procedure Tolerated Well Tolerated Well -Debridement - Subq, 1st 20sq cm Yes No #16 L Plantar foot -Time 10:30 10:35 16:02 -Correct Patient Yes Yes Yes -Correct Side, Site, Position Yes Yes Yes -Correct Procedure Yes Yes Yes -Procedure Performed Yes Yes Yes -Type of Procedure Debridement Debridement Debridement -Clinical Debridement Muscle / Fascia Subcutaneous Subcutaneous -Tissue Removed Muscle Subcutaneous Subcutaneous -Post Debridement (cm) - Length 2.9 3 3 -Post Debridement (cm) - Width 2.1 2.1 2.5 -Post Debridement (cm) - Depth 1 1.4 1.2 -Total Square (Post) (cm) 6.09 6.3 7.5 -Area of Debridement (cm) - Length 2.9 3 3 -Area of Debridement (cm) - Width 2.1 2.1 2.5 -Total Square (Area) (cm) 6.09 6.3 7.5 -Tunneling No No No -Undermining/Tunneling No No No -Circular Undermining No No No -Wound/Ulcer Outcome Not Healed Not Healed Not Healed -Ulcer Cleansing Rinsed/ Rinsed/ Rinsed/ Irrigated with Irrigated with Irrigated with Saline Saline Saline -Foul Odor after Cleansing No No No -Bioengineered Tissue No No No -Bleeding Controlled with Pressure Pressure Pressure -Offloading No No Yes -Type of Offloading Camwalker -Treatment Response Procedure Procedure Procedure Tolerated Well Tolerated Well Tolerated Well -Debridement - Subq, 1st 20sq cm Yes Yes -Debridement - Muscle / Fascia, 1st Yes 20sq cm Pain Scale: 0-10 Numeric Is Patient Pain Free? Yes Yes WC - Nurse 3 - General Ulcer D/C NN Start: 07/21/21 10:04 Freq: Status: Active Protocol: Activity Type Activity Date Activity User E-Sign Co-Sign Detail Recorded Client Recorded Date Recorded By Document 07/21/21 10:50 DL [id number] 07/21/21 10:55 DL Document 07/28/21 11:05 BM [id number] 07/28/21 11:06 BMF Document 08/05/21 16:17 RB [id number] 08/05/21 16:18 RB 07/21/21 07/28/21 08/05/21 10:50 11:05 16:17 Wound Care Nurse 3 #21 RIGHT LAT ANKLE -Ulcer Cleansing Wound Cleanser Rinsed/ Rinsed/ Irrigated with Irrigated with Saline Saline -Foul Odor after Cleansing No No -Primary Dressing Applied Fibracol Plus C Hydrogel ($) 4x4 -Other Dressing HYDROGEL -Primary Dressing Covered/Secured with Dry Gauze & Dry Gauze & Dry Gauze,Dry Roll Gauze, Roll Gauze, Gauze & Roll Secured with Secured with Gauze,Secured Tape Tape with Tape -Fibracol Plus 4x4 1 19-right inferior plantar -Ulcer Cleansing Wound Cleanser Rinsed/ Rinsed/ Irrigated with Irrigated with Saline Saline -Foul Odor after Cleansing No No -Primary Dressing Applied Other Aquacel AG 4x4 -Other Dressing moist gauze dakins moist gauze -Primary Dressing Covered/Secured with Dry Gauze & Dry Gauze & Dry Gauze,Dry Roll Gauze, Roll Gauze, Gauze & Roll Secured with Secured with Gauze,Secured Tape Tape,Other with Tape -Other Covering abd -Aquacel AG 4x4 1 #18 R Lat foot -Ulcer Cleansing Wound Cleanser -Foul Odor after Cleansing No -Other Dressing moist gauze -Primary Dressing Covered/Secured with Dry Gauze & Roll Gauze, Secured with Tape #16 L Plantar foot -Ulcer Cleansing Wound Cleanser Rinsed/ Rinsed/ Irrigated with Irrigated with Saline Saline -Foul Odor after Cleansing No -Primary Dressing Applied Other -Other Dressing moist gauze dakins moist AQUACEL AG gauze -Primary Dressing Covered/Secured with Dry Gauze & Dry Gauze & Dry Gauze,Dry Roll Gauze, Roll Gauze, Gauze & Roll Secured with Secured with Gauze,Secured Tape Tape,Other with Tape -Other Covering abd Right -Compression Wrap [place] Wrap -Tubular Bandage Double Layer Single Layer Single Layer -Size of Tubigrip Used Size E Size D Size D -Size D ($) 1 1 -Size E ($) 1 -Stockings Yes Left -Compression Wrap [place] Wrap -Tubular Bandage Double Layer Single Layer Single Layer -Size of Tubigrip Used Size E Size D Size D -Size D ($) 1 1 -Size E ($) 1 Treatment Response Procedure Procedure Tolerated Well Tolerated Well Pain Scale: 0-10 Numeric Is Patient Pain Free? Yes Yes Yes WC - Visit Discharge Discharge Condition Stable Stable Stable Ambulatory Status Wheelchair Wheelchair Wheelchair Transportation Private Auto Medication Reconcilliation completed & No provided to patient/care provider Clinical Summary of Care Provided Yes Facility Type Home Health Home Health Notes: Pt to resume Dakins to all ulcers except R Lat ankle at home Orders Sent Yes Assessment/Plan Assessment/Plan (1) Chronic ulcer of right foot with fat layer exposed: CODE(S): L97.512 - Non-pressure chronic 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 layer exposed (2) Chronic foot pain: CODE(S): M79.673 - Pain in unspecified foot; G89.29 - Other chronic pain QUALIFIERS: Laterality: unspecified laterality Qualified Code(s): M79.673 - Pain in unspecified foot; G89.29 - Other chronic pain (3) Delayed wound healing: CODE(S): T14.8XXD - Other injury of unspecified body region, subsequent encounter (4) Debility: CODE(S): R53.81 - Other malaise (5) Hyperglycemia due to type 2 diabetes mellitus: CODE(S): E11.65 - Type 2 diabetes mellitus with hyperglycemia QUALIFIERS: Diabetes mellitus terminal operations supervisor insulin use: with terminal operations supervisor use Qualified Code(s): E11.65 - Type 2 diabetes mellitus with hyperglycemia; Z79.4 - custodial (current) use of 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 Debridement was performed as noted in the clinical nursing panel. Full chart review was reviewed. The right plantar foot ulceration was approved for TheraSkin graft application. As patient has been unable to keep the graft in place time we have stopped applications. Patient has since been approved for a snap VAC to her right plantar ulceration. She has not been able to be compliant and keep this on so it has been discontinued. Patient was able to obtain the Dakin's as discussed last visit. Wounds to be washed with soap and water every other day. Dressings: To change daily with hydrogel to the right lateral ankle and Aquacel Ag to bilateral plantar foot ulcer sites. She is reassured no signs of infection are noted today. To monitor. Patient is to remain strict nonweightbearing. She is noted to have a wheelchair. She has brought her 2 CAM boots today to be modified and this was performed last week. Compliance was discussed with offloading it is imperative. It is noted she is already been undergoing a comprehensive wound healing plan and has delayed and nonhealing. She has had prior bone biopsies, wound culture, skin grafts, total contact cast, multiple hospital visits, surgeries, and intervention with infectious disease. Try to optimize nutrition by offering referral for nutrition patient declined. She has suspected adequate vascular perfusion for healing per her recent noninvasive vascular studies 09/01/2020 with triphasic waveforms noted. Patient's hemoglobin A1c was 13.1% on 12/29/2020. This was recently checked in June and was decreased to 9% range. Offloading strongly recommended. Optimal blood sugar control and increased protein intake also discussed. To improve whole food intake including vegetables and fruit. Being forced to stay off her feet at the SNF has allowed the most improvement noted in these wounds in a long time. Since being home wounds have noted to have worsening likely due to her being more active on her feet along with her not getting the nutritional support she needs at home to control her blood sugar and optimize her for healing. All questions were answered and she was advised to call with any further questions or concerns. All signs and symptoms of local and systemic infection were discussed with the patient today. Patient is to follow up with Dr Eric as discussed. Follow up in 1 week. To go to the emergency room if her condition worsens or she develops signs of infection. This note was generated with [employer] software. It may contain incorrect words, spelling, and punctuation that were not noted in checking the note before signing.
== END 2021-08-09 23:59 ==
LOC: WC 15:30
PROVIDERS: Podiatrist Foot & Ankle Surgery; PCP Family Medicine; Referring Provider Podiatrist; Visit Provider Podiatrist
DX: E11.621 Type 2 diabetes mellitus with foot ulcer (principal); L97.413 Non-pressure chronic ulcer of right heel and midfoot with necrosis of muscle; L97.312 Non-pressure chronic ulcer of right ankle with fat layer exposed; L97.423 Non-pressure chronic ulcer of left heel and midfoot with necrosis of muscle; E11.610 Type 2 diabetes mellitus with diabetic neuropathic arthropathy; E11.65 Type 2 diabetes mellitus with hyperglycemia; R60.0 Localized edema; G89.29 Other chronic pain; Z91.19 Patient's noncompliance with other medical treatment and regimen; E66.9 Obesity, unspecified; Z68.32 Body mass index [BMI] 32.0-32.9, adult; Z79.4 Long term (current) use of insulin; Z79.02 Long term (current) use of antithrombotics/antiplatelets; Z79.899 Other long term (current) drug therapy
CPT/HCPCS: 11042; 11043; 82962

== ENCOUNTER → 2021-08-05 17:50 | Outpatient (CLI) | payer MEDICARE, MEDICAID, SELFPAY ==
[2018-09-21 13:23] VITALS: BMI 29.3
--- NOTE | 2021-08-05 17:57 | RAD_ITS ---
STUDY: X-RAY - RIGHT ANKLE REASON FOR EXAM: Female, 56 years old. FOOT PAIN TECHNIQUE: 3 view(s) of the ankle. COMPARISON: 04/07/2019 FINDINGS: Normal visualized distal tibia and fibula. Irregularity the medial malleolus may represent a healed fracture. Mild tibiotalar joint arthrosis. Normal visualized talus and calcaneus. The visualized subtalar, talonavicular, calcaneocuboid and tarsal articulations are normal. The soft tissue structures are unremarkable. RAD/Ankle min 3 Views IMPRESSION: Mild tibiotalar arthrosis. Electronically Signed: Scot Penny MD at 15:36 EDT Tel , Service support ,
--- NOTE | 2021-08-05 17:57 | RAD_ITS ---
STUDY: X-RAY - RIGHT FOOT CLINICAL: Female, 56 years old. FOOT PAIN TECHNIQUE: 3 view(s) of the foot. COMPARISON: 04/20/2021 FINDINGS: Normal talus, calcaneus, and tarsal bones. Severe midfoot arthrosis consistent with Charcot foot. Status post transmetatarsal amputation of the fifth digit. Normal metatarsophalangeal joint of the great toe. Normal tibial and fibular sesamoid bones. Normal interphalangeal joint of the great toe. Normal phalanges of the great toe. Normal second through fifth metatarsophalangeal joints. Normal interphalangeal joints and phalanges of the lesser toes. There is a radiolucent defect within the plantar aspect of foot consistent with an ulcer. RAD/Foot min 3 Views IMPRESSION: Charcot foot. Ulcer of the plantar aspect of the foot. No radiographic evidence of osteomyelitis. Electronically Signed: Scot Penny MD at 15:38 EDT Tel , Service support ,
== END ==
PROVIDERS: PCP Family Medicine; Visit Provider Podiatrist Foot & Ankle Surgery
DX: M25.571 Pain in right ankle and joints of right foot (principal); E11.621 Type 2 diabetes mellitus with foot ulcer; L97.413 Non-pressure chronic ulcer of right heel and midfoot with necrosis of muscle; L97.312 Non-pressure chronic ulcer of right ankle with fat layer exposed; L97.423 Non-pressure chronic ulcer of left heel and midfoot with necrosis of muscle; E11.610 Type 2 diabetes mellitus with diabetic neuropathic arthropathy; E11.65 Type 2 diabetes mellitus with hyperglycemia; G89.29 Other chronic pain; Z91.19 Patient's noncompliance with other medical treatment and regimen; E66.9 Obesity, unspecified; Z68.32 Body mass index [BMI] 32.0-32.9, adult; Z79.4 Long term (current) use of insulin; Z79.02 Long term (current) use of antithrombotics/antiplatelets; Z79.899 Other long term (current) drug therapy
CPT/HCPCS: 11042; 73610; 73630

== ENCOUNTER 2021-08-12 15:00 | Outpatient (RCR) | payer MEDICARE, MEDICAID, SELFPAY ==
[2018-09-21 13:23] VITALS: BMI 29.3
[2021-08-10 00:14] VITALS: BP 167/81; PULSE 97; RESP 18; TEMP 36.4; BMI 32.3
[2021-08-12 15:04] VITALS: BP 162/79; PULSE 100; RESP 16; TEMP 37.1; BMI 32.3
--- NOTE | 2021-08-12 16:18 | PN.PCM_ITS ---
History of Present Illness Date of Service: 08/12/21 Chief Complaint: right foot ulcer Right ankle ulcer left foot ulcer History of Wound: Patient is a 56-year-old female who presents to the clinic for bilateral foot ulcers. Patient has been dealing with wounds to bilateral lower extremities for years. Patient has noted noncompliance including going out of the country or on vacation with wounds without care. Patient has significant delayed healing and foot deformities contributing to these ulcerations. Patient states struggled to understand what she is doing is contributing to her lack of wound healing. Patient was recently at the hospital for gastroenteritis 03/03/21. Patient also noted that time to have worsening right foot with acute Charcot foot noted on x- ray and MRI. Patient was also noted to have multiple new blisters formed during hospital stay with wounds that remain. It was determined during hospital visit the patient was not stable not to go to the operating room. Bedside debridements and cultures were obtained. Patient was started on Levaquin per infectious disease. Patient is to continue wound care and has since followed up with the wound care center. Right foot wound culture from 03/06/2021 with significant for bacterial growth of staph aureus and strep group C. Left foot wound did not appear clinically infected but was polymicrobial upon culture on 03/05/2021. MRI obtained of the right foot was negative for osteomyelitis but showed small focal abscess to lateral plantar foot. Patient is no longer at the SNF facility and has had regression of wound since returning home. Patient has since been readmitted and discharged from the hospital for chest pain. Since last week, she has tried to improve her use of bilateral CAM Walker boots. She is also trying to increase her whole food intake for vegetables a day. Her A1c level was last at over 9%. This is decreased from about 13%. Progress of Wound: Stable Objective Data Objective Data Vital Signs: Vital Signs Temp Pulse Resp BP 98.7 F 100 16 162/79 H 08/12/21 15:04 08/12/21 15:04 08/12/21 15:04 08/12/21 15:04 Oxygen Delivery Method Room Air Weight: 91.138 kg Body Mass Index (BMI) 32.3 Physical Exam Narrative Const General Appearance: cooperative, flat affect Extremity normal capillary refill and no calf tenderness General Extremity: no tenderness to palpation of joints or extremities and other findings Other Details: Capillary refill time less than 3 seconds noted to digits ; Negative for clubbing or cyanosis Skin General Skin Exam: atrophy and dry skin; Negative for ecchymosis, erythema, eschar, pallor or dermatitis Rashes: no rashes Wound Narrative: plantar left foot ulceration. Granular base. Mild maceration noted. Moderate periwound callus tissue noted. There is no erythema or edema or malodor or purulence or other suggestion signs of infection. Serous drainage noted. Plantar right foot ulceration is stable. Granular base. Mild maceration noted. Moderate periwound callus tissue noted. There is no erythema or edema or malodor or purulence or other suggestion signs of infection. Serosanguineous drainage noted. Right lateral ankle ulceration. Superficial with no deep tissue exposure at this time. No erythema or edema or malodor or purulence or other cyst signs suggestive of infection. Mild serosanguineous drainage noted. Surrounding scar tissue noted. 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 Charcot foot deformity noted bilaterally. Continued bilateral lower extremity edema noted. No calf tenderness negative Jaswinder and Nuñez sign. DP and PT are diminished bilaterally Neuromuscular Sensory Exam: extremities light-touch: decreased Motor Exam: strength abnormal other (4/5 to all pedal muscle groups) There is foot and Charcot deformities noted to bilateral feet with prominent plantar lateral feet collapse Psych Appearance: normal Debridement Note Debridement Note Wound debrided: Right lateral ankle, bilateral plantar foot Wound Grade/Stage: One, all Type of Debridement: Excisional debridement Anesthesia Used: 4% Lidocaine Solution Depth: in the subcutaneous layer Percentage of wound debrided: 100 Instrument Used: #15 blade Tissue Removed: fibrous, devitalized subcutaneous, biofilm, slough Severity: Fat Layer Exposed Amount of bleeding with debridement: Mild Bleeding Controlled with: Pressure Patient tolerated procedure: Patient tolerated procedure well Post-Debridement Measurements and Additional Note: Post-Debridement Layla urements/Treatment - Nurse 1 - General Ulcer Assessment Start: 08/12/21 15:04 Freq: Status: Active Protocol: SHANICE Activity Type Activity Date Activity User E-Sign Co-Sign Detail Recorded Client Recorded Date Recorded By Document 08/12/21 15:04 MW [id number] 08/12/21 15:13 MW 08/12/21 15:04 TENNILLE - Today's Visit Information Type of service Follow-up Visit (Physician/EVENT PL[employer]ING [employer]N ) Arrival Mode Wheelchair Transfer Assistance None Accompanied by SELF Patient Identification Verified (Name & Yes ) Patient Requires Transmission-Based No Precautions Safety Precautions Fall Prevention Height and Weight Body Mass Index (BMI) 32.3 BMI Classification Obese Vital Signs Temperature (97.8 F-99.1 F) 98.7 F Temperature Source Temporal Pulse Rate (60-100) 100 Pulse Location Monitor Respiratory Rate (12-18) 16 Respiratory rate source Observation Oxygen Delivery Method Room Air Blood Pressure (90/60-120/80) 162/79 H Blood Pressure Mean (mm Hg) 106 History Since Last Visit- (Skip if this is Patient's initial visit) Have you changed medications since your No last visit? Any new allergies or adverse reactions No Had a fall/change in ADL's that may No increase risk of falls Signs or symptoms of abuse and/or No neglect since last visit Have you been in the hospital since your No last visit? Has dressing in place as prescribed Yes Has compression in place as prescribed No Has offloadiing in place as prescribed No Experienced any changes in pain level or No management Left Footwear No Footwear Right Footwear No Footwear Pain Scale: 0-10 Numeric Is Patient Pain Free? Yes WC - Nurse 1 - General Ulcer Measurement Start: 08/12/21 15:04 Freq: Status: Active Protocol: Activity Type Activity Date Activity User E-Sign Co-Sign Detail Recorded Client Recorded Date Recorded By Document 08/12/21 15:04 MINERVA [id number] 08/12/21 15:13 MW 08/12/21 15:04 Wound Center Nurse 1 #21 RIGHT LAT ANKLE -Combined with other wound No -Current Size (cm) - Length 0.1 -Current Size (cm) - Width 0.1 -Current Size (cm) - Depth 0.1 -Total Square Cm 0.01 -Photo Taken No -Tunneling No -Undermining/Tunneling No -Circular Undermining No -Exudate Amt Small -Exudate Type Serosanguineous -Wound Margin Flat & Intact -Granulation Amt Small (1-33%) -Granulation Quality [place] -Slough/Fibrin Yes -Necrosis Amt Small (1-33%) -Necrotic Tissue Type Adherent Slough -Structure Exposed N/A -Texture (Natacha-wound Skin Appearance) Assessed, Localized Edema ,Scarring -Moisture (Natacha-wound Skin Appearance) Assessed,Dry/ Scaly -Color (Natacha-wound Skin Appearance) No Abnormality, Assessed -Temperature (Natacha-wound Skin No Abnormality Appearance) (Pt Warm) -Tenderness on Palpation (Natacha-wound Yes Skin Appearance) -Ulcer Cleansing Soap and Water -Foul Odor after Cleansing No -Anesthetic Used 4% Lidocaine Solution 19-right inferior plantar -Combined with other wound No -Current Size (cm) - Length 2.5 -Current Size (cm) - Width 2.5 -Current Size (cm) - Depth 0.8 -Total Square Cm 6.25 -Photo Taken No -Epithelialization None Present -Tunneling No -Undermining/Tunneling No -Circular Undermining No -Exudate Amt Medium -Exudate Type Serosanguineous -Wound Margin Thickened -Granulation Amt Medium (34-66%) -Granulation Quality [place] -Slough/Fibrin Yes -Necrosis Amt Small (1-33%) -Necrotic Tissue Type Adherent Slough -Structure Exposed N/A -Texture (Natacha-wound Skin Appearance) Assessed,Callus ,Localized Edema,Scarring -Moisture (Natacha-wound Skin Appearance) Assessed -Color (Natacha-wound Skin Appearance) No Abnormality, Assessed -Temperature (Natacha-wound Skin No Abnormality Appearance) (Pt Warm) -Tenderness on Palpation (Natacha-wound No Skin Appearance) -Ulcer Cleansing Soap and Water -Foul Odor after Cleansing No -Anesthetic Used 4% Lidocaine Solution #16 L Plantar foot -Combined with other wound No -Current Size (cm) - Length 3.1 -Current Size (cm) - Width 2.5 -Current Size (cm) - Depth 1.2 -Total Square Cm 7.75 -Photo Taken No -Epithelialization None Present -Tunneling No -Undermining/Tunneling No -Circular Undermining No -Exudate Amt Medium -Exudate Type Serosanguineous -Wound Margin Thickened -Granulation Amt Medium (34-66%) -Granulation Quality [place] -Slough/Fibrin Yes -Necrosis Amt Small (1-33%) -Necrotic Tissue Type Adherent Slough -Structure Exposed N/A -Texture (Natacha-wound Skin Appearance) Assessed, Localized Edema ,Scarring -Moisture (Natacha-wound Skin Appearance) Assessed,Dry/ Scaly -Color (Natacha-wound Skin Appearance) No Abnormality, Assessed -Temperature (Natacha-wound Skin No Abnormality Appearance) (Pt Warm) -Tenderness on Palpation (Natacha-wound No Skin Appearance) -Ulcer Cleansing Soap and Water -Foul Odor after Cleansing No -Anesthetic Used 4% Lidocaine Solution Lower Limb Edema Present No WC - Nurse 2 - General Ulcer CM Notes Start: 08/12/21 15:04 Freq: Status: Active Protocol: Activity Type Activity Date Activity User E-Sign Co-Sign Detail Recorded Client Recorded Date Recorded By Document 08/12/21 15:21 JF [id number] 08/12/21 15:24 LISSY 08/12/21 15:21 Wound Center Nurse 2 #21 RIGHT LAT ANKLE -Time 15:21 -Correct Patient Yes -Correct Side, Site, Position Yes -Correct Procedure Yes -Procedure Performed Yes -Type of Procedure Debridement -Clinical Debridement Subcutaneous -Tissue Removed Subcutaneous -Post Debridement (cm) - Length 0.2 -Post Debridement (cm) - Width 0.2 -Post Debridement (cm) - Depth 0.1 -Total Square (Post) (cm) 0.04 -Area of Debridement (cm) - Length 0.2 -Area of Debridement (cm) - Width 0.2 -Total Square (Area) (cm) 0.04 -Tunneling No -Undermining/Tunneling No -Circular Undermining No -Wound/Ulcer Outcome Not Healed -Ulcer Cleansing Rinsed/ Irrigated with Saline -Foul Odor after Cleansing No -Bioengineered Tissue No -Bleeding Controlled with Pressure -Offloading Yes -Type of Offloading Camwalker -Treatment Response Procedure Tolerated Well -Debridement - Subq, 1st 20sq cm No 19-right inferior plantar -Time 15:22 -Correct Patient Yes -Correct Side, Site, Position Yes -Correct Procedure Yes -Procedure Performed Yes -Type of Procedure Debridement -Clinical Debridement Subcutaneous -Tissue Removed Dermis, Subcutaneous -Post Debridement (cm) - Length 2.6 -Post Debridement (cm) - Width 2.6 -Post Debridement (cm) - Depth 0.8 -Total Square (Post) (cm) 6.76 -Area of Debridement (cm) - Length 2.6 -Area of Debridement (cm) - Width 2.6 -Total Square (Area) (cm) 6.76 -Tunneling No -Undermining/Tunneling No -Circular Undermining No -Wound/Ulcer Outcome Not Healed -Ulcer Cleansing Rinsed/ Irrigated with Saline -Foul Odor after Cleansing No -Bioengineered Tissue No -Bleeding Controlled with Pressure -Offloading Yes -Type of Offloading Camwalker -Treatment Response Procedure Tolerated Well -Debridement - Subq, 1st 20sq cm No #16 L Plantar foot -Time 15:23 -Correct Patient Yes -Correct Side, Site, Position Yes -Correct Procedure Yes -Procedure Performed Yes -Type of Procedure Debridement -Clinical Debridement Subcutaneous -Tissue Removed Subcutaneous -Post Debridement (cm) - Length 3.2 -Post Debridement (cm) - Width 2.5 -Post Debridement (cm) - Depth 1.2 -Total Square (Post) (cm) 8.00 -Area of Debridement (cm) - Length 3.2 -Area of Debridement (cm) - Width 2.5 -Total Square (Area) (cm) 8.00 -Tunneling No -Undermining/Tunneling No -Circular Undermining No -Wound/Ulcer Outcome Not Healed -Ulcer Cleansing Rinsed/ Irrigated with Saline -Foul Odor after Cleansing No -Bioengineered Tissue No -Bleeding Controlled with Pressure -Offloading Yes -Type of Offloading Camwalker -Treatment Response Procedure Tolerated Well -Debridement - Subq, 1st 20sq cm Yes Pain Scale: 0-10 Numeric Is Patient Pain Free? Yes WC - Nurse 3 - General Ulcer D/C NN Start: 08/12/21 15:04 Freq: Status: Active Protocol: Activity Type Activity Date Activity User E-Sign Co-Sign Detail Recorded Client Recorded Date Recorded By Document 08/12/21 15:29 DL [id number] 08/12/21 15:32 DL 08/12/21 15:29 Wound Care Nurse 3 #21 RIGHT LAT ANKLE -Ulcer Cleansing Rinsed/ Irrigated with Saline -Foul Odor after Cleansing No -Other Dressing hydrogel -Primary Dressing Covered/Secured with Dry Gauze & Roll Gauze, Secured with Tape 19-right inferior plantar -Ulcer Cleansing Rinsed/ Irrigated with Saline -Foul Odor after Cleansing No -Primary Dressing Applied Aquacel AG 4x4 -Primary Dressing Covered/Secured with Dry Gauze & Roll Gauze, Secured with Tape -Aquacel AG 4x4 1 #16 L Plantar foot -Ulcer Cleansing Rinsed/ Irrigated with Saline -Foul Odor after Cleansing No -Other Dressing hydrogel -Primary Dressing Covered/Secured with Dry Gauze & Roll Gauze, Secured with Tape Right -Tubular Bandage Double Layer -Size of Tubigrip Used Size E -Size E ($) 1 Left -Tubular Bandage Double Layer -Size of Tubigrip Used Size E -Size E ($) 1 Treatment Response Procedure Tolerated Well Pain Scale: 0-10 Numeric Is Patient Pain Free? Yes WC - Visit Discharge Discharge Condition Stable Ambulatory Status Wheelchair Orders Sent Yes Assessment/Plan Assessment/Plan (1) Chronic ulcer of right foot with fat layer exposed: CODE(S): L97.512 - Non-pressure chronic 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 layer exposed (2) Chronic foot pain: CODE(S): M79.673 - Pain in unspecified foot; G89.29 - Other chronic pain QUALIFIERS: Laterality: unspecified laterality Qualified Code(s): M79.673 - Pain in unspecified foot; G89.29 - Other chronic pain (3) Delayed wound healing: CODE(S): T14.8XXD - Other injury of unspecified body region, subsequent encounter (4) Debility: CODE(S): R53.81 - Other malaise (5) Hyperglycemia due to type 2 diabetes mellitus: CODE(S): E11.65 - Type 2 diabetes mellitus with hyperglycemia QUALIFIERS: Diabetes mellitus jail insulin use: with jail use Qualified Code(s): E11.65 - Type 2 diabetes mellitus with hyperglycemia; Z79.4 - residential (current) use of 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 Debridement was performed as noted in the clinical nursing panel. The right plantar foot ulceration was previously approved for TheraSkin graft application. As patient has been unable to keep the graft in place time we have stopped applications. Patient has since been approved for a snap VAC to her right plantar ulceration. She has not been able to be compliant and keep this on so it has been discontinued. Wounds to be washed with soap and water every other day. Dressings: To change daily with hydrogel to the right lateral ankle and Aquacel Ag to bilateral plantar foot ulcer sites. She is reassured no signs of infection are noted today. To monitor. Patient is to remain strict nonweightbearing. She is noted to have a wheelchair. She has brought her 2 CAM boots today to be modified and this was performed last week. Compliance was discussed with offloading it is imperative. It is noted she is already been undergoing a comprehensive wound healing plan and has delayed and nonhealing. She has had prior bone biopsies, wound culture, skin grafts, total contact cast, multiple hospital visits, surgeries, and intervention with infectious disease. Try to optimize nutrition by offering referral for nutrition patient declined. She has suspected adequate vascular perfusion for healing per her recent noninvasive vascular studies 09/01/2020 with triphasic waveforms noted. Patient's hemoglobin A1c was 13.1% on 12/29/2020. This was recently checked in June and was decreased to 9% range. Offloading strongly recommended. Optimal blood sugar control and increased protein intake also discussed. To improve whole food intake including vegetables and fruit. Being forced to stay off her feet at the SNF has allowed the most improvement noted in these wounds in a long time. Since being home wounds have noted to have worsening likely due to her being more active on her feet along with her not getting the nutritional support she needs at home to control her blood sugar and optimize her for healing. All questions were answered and she was advised to call with any further questions or concerns. All signs and symptoms of local and systemic infection were discussed with the patient today. Patient is to follow up with Dr Eric as discussed. Follow up in 1 week. To go to the emergency room if her condition worsens or she develops signs of infection. This note was generated with [employer] software. It may contain incorrect words, spelling, and punctuation that were not noted in checking the note before signing.
== END 2021-09-08 23:59 ==
LOC: WC 15:00
PROVIDERS: PCP Family Medicine; Referring Provider Podiatrist; Visit Provider Podiatrist
DX: E11.621 Type 2 diabetes mellitus with foot ulcer (principal); L97.412 Non-pressure chronic ulcer of right heel and midfoot with fat layer exposed; L97.422 Non-pressure chronic ulcer of left heel and midfoot with fat layer exposed; E11.622 Type 2 diabetes mellitus with other skin ulcer; L97.312 Non-pressure chronic ulcer of right ankle with fat layer exposed; R60.0 Localized edema; E11.610 Type 2 diabetes mellitus with diabetic neuropathic arthropathy; E11.65 Type 2 diabetes mellitus with hyperglycemia; G89.29 Other chronic pain; Z91.19 Patient's noncompliance with other medical treatment and regimen; E66.9 Obesity, unspecified; Z68.32 Body mass index [BMI] 32.0-32.9, adult; Z79.4 Long term (current) use of insulin; Z79.899 Other long term (current) drug therapy
CPT/HCPCS: 11042

== ENCOUNTER 2021-08-24 10:31 | Emergency (ER) | payer MEDICARE, MEDICAID, SELFPAY ==
[2018-09-21 13:23] VITALS: BMI 29.3
[2021-08-24 10:32] VITALS: BP 122/90; PULSE 93; RESP 18; TEMP 36.8; O2SAT 97; BMI 30.7
[2021-08-24 10:51] VITALS: BP 122/90; PULSE 93; RESP 18; TEMP 36.8; O2SAT 97
--- NOTE | 2021-08-24 11:30 | RAD_ITS ---
STUDY: X-RAY CHEST REASON FOR EXAM: Female, 56 years old. Worsening cough. TECHNIQUE: Single AP portable view of the chest. COMPARISON: Comparison is made with prior study dated 07/07/2021. FINDINGS: Stable elevation of the right hemidiaphragm. The lungs are clear and expanded. There is no demonstrated pleural abnormality. Normal size heart. Normal mediastinum and elvie. Normal visualized pulmonary arteries. Normal visualized aortic arch and descending thoracic aorta. There are diffuse degenerative changes of the visualized thoracic spine. Normal visualized ribs, clavicles, and shoulders. There is no demonstrated abnormality of the visualized soft tissue structures of the upper abdomen. RAD/Chest 1 View (Portable) IMPRESSION: Stable examination. No acute abnormality is seen. Electronically Signed: Ronnie Saavedra MD at 11:52 EST , Service support ,
[2021-08-24 12:53] VITALS: RESP 16
--- NOTE | 2021-08-24 13:22 | EX.ED.DYSGE1 ---
HPI History of Present Illness Chief Complaint: Cough Narrative Narrative: Patient is a 56-year-old female with history of chronic kidney disease. She states that over the past 3 to 5 days she had increased congestion sore throat cough and fatigue. She reports recent sick contacts with similar symptoms. She states she feels her symptoms are worsening and she has had more shortness of breath and secondary to this comes in for evaluation [facility] Medical History Acquired varus deformity of left foot Acquired varus deformity of right foot Amputation foot, bilat Anemia Anxiety Anxiety and depression Atherosclerosis of [place] coronary artery of [place] heart without angina pectoris Back pain, chronic Chronic renal insufficiency Chronic ulcer of left foot with fat layer exposed Coronary artery disease Delayed wound healing Depression Diabetes Diabetic foot ulcer associated with type 2 diabetes mellitus Diabetic infection of left foot Diabetic polyneuropathy Diabetic ulcer of right ankle Essential (primary) hypertension GERD (gastroesophageal reflux disease) Hemoglobin A1c greater than 9.0% HLD (hyperlipidemia) Hypertension Ischemic cardiomyopathy Myocardial infarct Non-compliance Non-smoker Normocytic anemia NSTEMI (non-ST elevated myocardial infarction) (09/20/18) Obesity (BMI 30.0-34.9) Osteomyelitis of left foot RLS (restless legs syndrome) TIA (transient ischemic attack) Type 2 diabetes mellitus with diabetic polyneuropathy Ulcer of left foot with muscle involvement without evidence of necrosis Ulcer of right lower extremity with fat layer exposed Home Medications atorvastatin 80 mg tablet 80 mg PO QHS #90 tablet 11/30/19 [Rx Last Taken 07/05/21] insulin lispro 20 unit SC TIDCM 08/31/20 [History Last Taken 07/06/21] polysaccharide iron complex 150 mg PO DAILYCM 09/12/20 [History Last Taken 07/04/21] pramipexole 1.5 mg PO BID 09/12/20 [History Last Taken 07/06/21] clopidogrel 75 mg PO DAILY #0 tablet 01/01/21 [Rx Last Taken 07/05/21] insulin glargine 100 unit/mL (3 mL) subcutaneous pen 30 unit SC DAILY ml 01/20/21 [History Last Taken 07/04/21] nitroglycerin 0.4 mg sublingual tablet 0.4 mg SL Q5-15M PRN #25 tablet 01/20/21 [Rx Last Taken 07/07/21] isosorbide mononitrate 30 mg PO DAILY 03/03/21 [History Last Taken 07/04/21] gabapentin 300 mg PO TID 07/07/21 [History Last Taken 07/06/21] melatonin 20 mg PO DAILY 07/07/21 [History Last Taken 07/06/21] oxycodone 5 mg PO BID 07/07/21 [History Last Taken 07/06/21] paroxetine HCl 20 mg PO DAILY 07/07/21 [History Last Taken 07/06/21] dexamethasone [Decadron] 6 mg PO DAILY #10 tab 08/24/21 [Rx Last Taken Unknown] promethazine-codeine 5 ml PO Q6H PRN 7 Days #140 ml 08/24/21 [Rx Last Taken Unknown] Allergy/AdvReac Type Severity Reaction Status Date / Time oxycodone [From OxyContin] Allergy feels Verified 08/24/21 10:36 like I'm drowning Penicillins Allergy swelling Verified 08/24/21 10:36 in throat vancomycin Allergy Itching Verified 08/24/21 10:36 metronidazole AdvReac Nausea Verified 08/24/21 10:36 Family History (Reviewed 07/07/21 @ 16:13 by Valencia Peterson BEAMING MACHINE OPERATOR, BEAMING MACHINE OPERATOR-C) Mother Diabetes CVA (cerebral vascular accident) Brother CAD (coronary artery disease) CABG X 3 Cancer testicular Diabetes Brother CAD (coronary artery disease) CABG X3 Diabetes Brother CAD (coronary artery disease) Stents Diabetes Sister CAD (coronary artery disease) CABG x 3 CVA (cerebral vascular accident) Diabetes Surgical History History of bilateral carpal tunnel release History of History of coronary artery stent placement (12/31/20) History of foot surgery History of rotator cuff surgery Social History (Updated 07/07/21 @ 16:14 by Valencia Peterson NP, BEAMING MACHINE OPERATOR-C) household members: family Smoking Status: Never smoker alcohol intake: never substance use type: does not use caffeine: Yes Type: carbonated beverages Number of servings: 2 ROS ROS ED Constitutional Constitutional ED: Reports chills, fever(s) and subjective ENT ENT ED: Reports rhinorrhea and sore throat Cardiovascular Cardiovascular: Denies chest pain Respiratory/Chest Respiratory/Chest: Reports cough and dyspnea Gastrointestinal Gastrointestinal: Denies abdominal pain, diarrhea, nausea or vomiting Genitourinary Genitourinary ED: Denies dysuria Musculoskeletal Musculoskeletal: Reports myalgias Integumentary Denies rash Neurologic Neurologic: Denies headache(s) EXAM Physical Exam Const Vital Signs: 08/24/21 10:32 08/24/21 10:51 08/24/21 11:33 Temperature 98.2 F 98.2 F Temperature Source Temporal Temporal Pulse Rate 93 93 Respiratory Rate 18 18 Respiratory Effort Normal Non-Labored Blood Pressure 122/90 H 122/90 H Blood Pressure Mean 100 100 Pulse Ox 97 97 Oxygen Delivery Method Room Air Room Air 08/24/21 12:53 Temperature Temperature Source Pulse Rate Respiratory Rate 16 Respiratory Effort Blood Pressure Blood Pressure Mean Pulse Ox Oxygen Delivery Method Positive well nourished and well developed General Appearance ED: well developed HEENT HEENT Narrative: Cobblestoning the posterior pharynx consistent with sinus drainage but no oral lesions no airway edema or compromise Eyes PERRL and EOMs intact bilaterally Neck supple and no JVD Neck Narrative: Positive anterior cervical lymphadenopathy noted Chest Wall palpation of chest normal Resp normal respiratory effort Resp Narrative: Breath sounds are diminished throughout with diffuse expiratory wheeze but no signs of respiratory distress Cardio regular rate and regular rhythm GI normal to inspection, nondistended, normoactive bowel sounds, non-tender, non-distended and no masses GI Narrative: No fluid wave or pulsatile mass Auscultation: normoactive bowel sounds Palpation: soft Extremity Extremity Narrative: +2-3 pitting edema to the lower extremities bilaterally that patient states is chronic in nature Neuro oriented x3 and CN's II-XII intact bilaterally Sensorium / Orientation: alert Psych mental status grossly normal Skin Skin Narrative: Chronic soft tissue changes to her feet without secondary changes to suggest infection MDM MDM MDM Narrative Medical decision making narrative: Patient presented to the ER afebrile and in no acute respiratory distress satting in the mid 90s on room air. Her constellation of symptoms is concerning for viral illness and therefore rapid Covid swab was obtained. Chest x-ray revealed no obvious infiltrate pneumothorax or pleural effusion. Covid test was positive consistent with her constellation of symptoms. At this time she is not requiring supplemental oxygen nor she had any type of respiratory distress and therefore can be given symptomatic medications and discharged home. Because of her underlying chronic kidney disease I do believe she would benefit from monoclonal therapy antibody treatment and therefore this will be ordered for her as well. Radiography Diagnostic Testing: Clinical Impression(s) from Imaging Studies Chest X-Ray 08/24/21 11:30 IMPRESSION: Stable examination. No acute abnormality is seen. Electronically Signed: Ronnie Saavedra MD at 11:52 EST , Service support , Discharge Plan Triage Chief Complaint: Cough ED Provider: Sergio John Dx/Rx/DC Orders Clinical Impression: COVID-19 Instructions: Coronavirus Disease 2019 (COVID-19): Caring for Yourself or Others Prescriptions: New dexamethasone [Decadron] 6 mg tablet 6 mg PO DAILY Qty: 10 RF: 0 promethazine-codeine 6.25-10 mg/5 mL syrup 5 ml PO Q6H PRN (Reason: cough) 7 Days Qty: 140 RF: 0 No Action atorvastatin 80 mg tablet 80 mg PO QHS Qty: 90 RF: 3 nitroglycerin 0.4 mg tablet, sublingual 0.4 mg SL Q5-15M PRN (Reason: chest pain) Qty: 25 RF: 3 insulin lispro 100 UNIT/ML insulin pen 20 unit SC TIDCM RF: 0 pramipexole 1 MG tablet 1.5 mg PO BID RF: 0 polysaccharide iron complex 150 MG capsule 150 mg PO DAILYCM RF: 0 insulin glargine 100 unit/mL (3 mL) insulin pen 30 unit SC DAILY RF: 0 clopidogrel 75 MG tablet 75 mg PO DAILY Qty: 0 RF: 0 isosorbide mononitrate 30 mg tablet extended release 24 hr 30 mg PO DAILY RF: 0 paroxetine HCl 20 mg tablet 20 mg PO DAILY RF: 0 melatonin 10 mg Tablet 20 mg PO DAILY RF: 0 gabapentin 300 mg capsule 300 mg PO TID RF: 0 oxycodone 5 mg tablet 5 mg PO BID RF: 0 Other Ambulatory Orders: COVID Outpatient Monoclonal Antibody Referral (Routine) Timeframe: 1 Day Facility: [facility] - Location: [facility] Ordered By: Dr. Sergio John Primary Care Provider: Raúl Eric Referrals: Raúl Eric MD [Primary Care Provider] - Activity Restrictions/Additional Instructions: Please return to the hospital as directed for your outpatient monoclonal therapy treatment for your COVID-19 Disposition Disposition: Home, Self Care Discharge Date/Time: 08/24/21 13:54
== END 2021-08-24 13:54 | disposition home or self-care (01) ==
PROVIDERS: Emergency Provider Emergency Medicine; PCP Family Medicine
DX: U07.1 COVID-19 (principal); I12.9 Hypertensive chronic kidney disease with stage 1 through stage 4 chronic kidney disease, or unspecified chronic kidney disease; E11.22 Type 2 diabetes mellitus with diabetic chronic kidney disease; N18.9 Chronic kidney disease, unspecified; I25.10 Atherosclerotic heart disease of native coronary artery without angina pectoris; I25.5 Ischemic cardiomyopathy; E78.5 Hyperlipidemia, unspecified; K21.9 Gastro-esophageal reflux disease without esophagitis; F32.A Depression, unspecified; F41.9 Anxiety disorder, unspecified; E66.9 Obesity, unspecified; Z91.19 Patient's noncompliance with other medical treatment and regimen; Z79.4 Long term (current) use of insulin; Z79.02 Long term (current) use of antithrombotics/antiplatelets; Z79.52 Long term (current) use of systemic steroids; Z79.899 Other long term (current) drug therapy; I25.2 Old myocardial infarction; Z86.73 Personal history of transient ischemic attack (TIA), and cerebral infarction without residual deficits; Z95.5 Presence of coronary angioplasty implant and graft
CPT/HCPCS: 71045; 87426; 99284

== ENCOUNTER 2021-09-01 14:21 | Inpatient (IN) | payer MEDICARE, MEDICAID, SELFPAY ==
[2018-09-21 13:23] VITALS: BMI 29.3
[2021-09-01] VITALS (16 sets, daily range): BP systolic 105–155; BP diastolic 53–78; PULSE 73–146; RESP 12–39; TEMP 35.7–39.4; O2SAT 86–100; BMI 33.7; BMI 31.8
--- NOTE | 2021-09-01 14:29 | EKG12_ITS ---
Test Reason : SOB Blood Pressure : / mmHG Vent. Rate : 107 BPM Atrial Rate : 107 BPM P-R Int : 148 ms QRS Dur : 086 ms QT Int : 364 ms P-R-T Axes : 041 000 099 degrees QTc Int : 485 ms Sinus tachycardia Nonspecific ST and T wave abnormality Abnormal ECG Confirmed by OTTO DELVALLE, DOMINIQUE ([id number]), editor at large HARINI PHAM ([id number]) on 09/04/2021 7:10:32 AM Referred By: Confirmed By:DOMINIQUE MENJIVAR MD
[2021-09-01] MEDS: Acetaminophen 500 MG Tablet 1000 MG PO (14:40)
[2021-09-01 14:50] LABS: Absolute Lymphocyte Count 0.47 X10^3/uL (0.83-4.51); Absolute Neutrophil Count 20.9 X10^3/uL (2.0-7.7); Basophil# 0.05 X10^3/uL; Basophil% 0.2 % (0-1); Eosinophil# 0.06 X10^3/uL; Eosinophils% 0.3 % (0-5); Hematocrit 29.5 % (37-47); Hemoglobin 9.2 g/dL (12.0-15.0); Lymphocyte # 0.47 X10^3/ul (0.83-4.51); Lymphocyte % 2.1 % (19-41); Mean Corp Hgb Conc 31.2 g/dL (32-36); Mean Corpuscular Hgb 26.7 pg (27.0-32.0); Mean Corpuscular Volume 85.5 fL (81-99); Mean Platelet Vol. 11.4 fl (6.2-12.0); Monocyte% 1.8 % (0-10); NRBC Flagged by Analyzer 0 % (0-5); Neutrophil # 20.92 X10^3/uL (2.7-7.7); Neutrophil % 94.9 % (47-70); POSITIVE DIFFERENTIAL YES; POSITIVE MORPHOLOGY YES; Platelet Count 299 K/mm3 (150-450); RBC Distribution Width CV 14.7 % (11.6-14.6); RBC Distribution Width SD 45.3 fl (35.1-43.9); Red Blood Count 3.45 M/mm3 (4.2-5.4); White Blood Count 22.1 K/mm3 (4.4-11.0)
[2021-09-01 14:52] LABS: Differential Indicated SCAN CRITERIA MET
[2021-09-01 15:05] LABS: Fibrinogen 818 mg/dl (203-444)
[2021-09-01] MEDS: Ondansetron 4 MG/2 ML Vial IV (15:08)
[2021-09-01 15:10] LABS: BNP,B-Type NATRIURETIC PEPTIDE 739.7 pg/mL (0-100)
--- NOTE | 2021-09-01 15:10 | ED.VIS.DYS ---
HPI History of Present Illness Chief Complaint: Shortness of Breath Informant: patient Narrative Narrative: 56-year-old female from home presenting on about day 13 of COV-. She was seen on 24 August here in the emergency department where she tested positive. At that time she was not requiring any supplemental oxygen and her chest x-ray was clear. Patient presents today with respiratory distress. EMS notes pulse oximetry in the 80s at home and about 90% on a nonrebreather. Patient notes that she feels nauseated and globally fatigued. The patient's family states that she has been on Decadron since the ED visit. EMS administered Solu-Medrol on the way to the emergency room. Patient has been able to expectorate some thick dark-colored phlegm. [facility] Medical History Acquired varus deformity of left foot Acquired varus deformity of right foot Amputation foot, bilat Anemia Anxiety Anxiety and depression Atherosclerosis of [place] coronary artery of [place] heart without angina pectoris Back pain, chronic Chronic renal insufficiency Chronic ulcer of left foot with fat layer exposed Coronary artery disease Delayed wound healing Depression Diabetes Diabetic foot ulcer associated with type 2 diabetes mellitus Diabetic infection of left foot Diabetic polyneuropathy Diabetic ulcer of right ankle Essential (primary) hypertension GERD (gastroesophageal reflux disease) Hemoglobin A1c greater than 9.0% HLD (hyperlipidemia) Hypertension Ischemic cardiomyopathy Myocardial infarct Non-compliance Non-smoker Normocytic anemia NSTEMI (non-ST elevated myocardial infarction) (09/20/18) Obesity (BMI 30.0-34.9) Osteomyelitis of left foot RLS (restless legs syndrome) TIA (transient ischemic attack) Type 2 diabetes mellitus with diabetic polyneuropathy Ulcer of left foot with muscle involvement without evidence of necrosis Ulcer of right lower extremity with fat layer exposed Home Medications atorvastatin 80 mg tablet 80 mg PO QHS #90 tablet 11/30/19 [Rx Last Taken 07/05/21] insulin lispro 20 unit SC TIDCM 08/31/20 [History Last Taken 07/06/21] polysaccharide iron complex 150 mg PO DAILYCM 09/12/20 [History Last Taken 07/04/21] pramipexole 1.5 mg PO BID 09/12/20 [History Last Taken 07/06/21] clopidogrel 75 mg PO DAILY #0 tablet 01/01/21 [Rx Last Taken 07/05/21] insulin glargine 100 unit/mL (3 mL) subcutaneous pen 30 unit SC DAILY ml 01/20/21 [History Last Taken 07/04/21] nitroglycerin 0.4 mg sublingual tablet 0.4 mg SL Q5-15M PRN #25 tablet 01/20/21 [Rx Last Taken 07/07/21] isosorbide mononitrate 30 mg PO DAILY 03/03/21 [History Last Taken 07/04/21] gabapentin 300 mg PO TID 07/07/21 [History Last Taken 07/06/21] melatonin 20 mg PO DAILY 07/07/21 [History Last Taken 07/06/21] oxycodone 5 mg PO BID 07/07/21 [History Last Taken 07/06/21] paroxetine HCl 20 mg PO DAILY 07/07/21 [History Last Taken 07/06/21] dexamethasone [Decadron] 6 mg PO DAILY #10 tab 08/24/21 [Rx Last Taken Unknown] promethazine-codeine 5 ml PO Q6H PRN 7 Days #140 ml 08/24/21 [Rx Last Taken Unknown] Allergy/AdvReac Type Severity Reaction Status Date / Time oxycodone [From OxyContin] Allergy feels Verified 08/24/21 10:36 like I'm drowning Penicillins Allergy swelling Verified 08/24/21 10:36 in throat vancomycin Allergy Itching Verified 08/24/21 10:36 metronidazole AdvReac Nausea Verified 08/24/21 10:36 Family History Mother Diabetes CVA (cerebral vascular accident) Brother CAD (coronary artery disease) CABG X 3 Cancer testicular Diabetes Brother CAD (coronary artery disease) CABG X3 Diabetes Brother CAD (coronary artery disease) Stents Diabetes Sister CAD (coronary artery disease) CABG x 3 CVA (cerebral vascular accident) Diabetes Surgical History History of bilateral carpal tunnel release History of History of coronary artery stent placement (12/31/20) History of foot surgery History of rotator cuff surgery Social History (Updated 07/07/21 @ 16:14 by Valencia Peterson NP, CIRCULATION DIRECTOR-C) household members: family Smoking Status: Never smoker alcohol intake: never substance use type: does not use caffeine: Yes Type: carbonated beverages Number of servings: 2 ROS ROS ED Constitutional Constitutional ED: Reports chills and fever(s); Denies weight loss Eyes Eyes: Denies change in vision or diplopia ENT ENT ED: Reports rhinorrhea; Denies ear pain or sore throat Cardiovascular Cardiovascular: Denies chest pain, orthopnea, palpitations or racing heartbeat Respiratory/Chest Respiratory/Chest: Reports cough, dyspnea, dyspnea on exertion and sputum; Denies orthopnea Gastrointestinal Gastrointestinal: Reports nausea; Denies abdominal pain, diarrhea or vomiting Genitourinary Genitourinary ED: Denies dysuria, hematuria or urinary frequency Musculoskeletal Musculoskeletal: Denies arthralgias or myalgias Integumentary Denies abscess or rash Neurologic Neurologic: Reports headache(s); Denies weakness Psychiatric Psychiatric: Denies anxiety, depression, suicidal ideation or suicidal thoughts Endocrine Endocrinology: Denies polydipsia, polyphagia or polyuria Allergic/Immunologic Allergic/Immunologic ED: Denies mouth swelling, tongue swelling or urticaria EXAM Physical Exam Const Vital Signs: 09/01/21 14:24 09/01/21 14:28 09/01/21 14:35 Temperature 102.9 F H 102.9 F H Temperature Source Temporal Temporal Pulse Rate 146 H 140 H 119 H Respiratory Rate 34 H 34 H 35 H Respiratory Effort Respiratory Depth Respiratory Pattern Tachypnea Blood Pressure 154/71 H 154/71 H Blood Pressure Mean 98 98 Pulse Ox 86 89 97 Oxygen Delivery Method Room Air Nasal Cannula Oxygen Flow Rate (L/min) 4 Fraction of Inspired Oxygen (FIO2) 35 09/01/21 14:45 09/01/21 14:47 09/01/21 15:10 Temperature 101.3 F H Temperature Source Temporal Pulse Rate 122 H 113 H Respiratory Rate 24 H 39 H Respiratory Effort Short of Breath Labored Accessory Muscle Use Respiratory Depth Shallow Respiratory Pattern Tachypnea Blood Pressure 155/68 H 149/64 H Blood Pressure Mean 97 92 Pulse Ox 100 98 Oxygen Delivery Method Bi-pap Bi-pap Oxygen Flow Rate (L/min) Fraction of Inspired Oxygen (FIO2) 35 35 30 09/01/21 15:20 09/01/21 15:35 Temperature 99.4 F H Temperature Source Temporal Pulse Rate 109 H 117 H Respiratory Rate 35 H 27 H Respiratory Effort Respiratory Depth Respiratory Pattern Blood Pressure 128/56 H 116/56 L Blood Pressure Mean 80 76 Pulse Ox 97 100 Oxygen Delivery Method Bi-pap Bi-pap Oxygen Flow Rate (L/min) Fraction of Inspired Oxygen (FIO2) 30 30 Positive well nourished, well developed and obese General Appearance ED: well developed Nutritional Appearance: obese HEENT Reports normocephalic, head/scalp atraumatic, TM's clear and moist mucous membranes atraumatic Tympanic Membrane ED: Yes TM's clear Eyes PERRL and EOMs intact bilaterally Neck no lymphadenopathy, supple and no JVD Resp Resp Narrative: Patient presents with respiratory distress. Diminished lung sounds bilaterally. Cardio regular rhythm and no murmurs Rate: tachycardic GI normal to inspection, nondistended, normoactive bowel sounds and non-tender Palpation: soft Back/Spine no CVA tenderness and normal ROM Extremity normal to inspection General Extremety ED: Negative for edema General Extremity: Negative for edema Neuro oriented x3 and CN's II-XII intact bilaterally Sensorium / Orientation: lethargic Motor Exam: strength 5/5 throughout Psych Mood & Affect: Negative for depressed or tearful Skin no rashes or lesions noted and no wounds Rashes: no rashes MDM MDM MDM Narrative Medical decision making narrative: Due to the patient's respiratory distress she was placed on BiPAP. This was making significant improvement in her breathing. She was only requiring 30% FiO2 and her respiratory rate had decreased to 18. The patient states that she cannot breathe with the BiPAP on and wants it removed. We did a trial of nasal cannula. White count returns at 22.1 YARELIS globin 9.2. D-dimer significantly elevated at 9.02 fibrinogen 818. CRP 126 troponin I 25 which I think is most likely type II. Normal lactic acid. Beta natruretic peptide 739.7 procalcitonin 1.89. My interpretation of the chest x-ray is increased fluid in the fissure. I do not see any focal areas of consolidation. Due to the patient's creatinine/GFR the CTA is unable to be performed at this time. Lab Data Attestation: I reviewed the patient's lab results. Labs: Laboratory Results - last 24 hr 09/01/21 09/01/21 09/01/21 14:33 14:33 14:33 WBC 22.1 H RBC 3.45 L Hgb 9.2 L Hct 29.5 L MCV 85.5 MCH 26.7 L MCHC 31.2 L RDW Std Deviation 45.3 H RDW Coeff of Fior 14.7 H Plt Count 299 MPV 11.4 Immature Gran % (Auto) 0.700 Neut % (Auto) 94.9 H Lymph % (Auto) 2.1 L [place] % (Auto) 1.8 Eos % (Auto) 0.3 Baso % (Auto) 0.2 Absolute Neuts (auto) 20.9 H Absolute Lymphs (auto) 0.47 L Nucleated RBC % 0 Differential Comment SCANNED Fibrinogen 818 H D-Dimer Quant (PE/DVT) 9.02 H* Sodium 134 L Potassium 4.5 Chloride 104 Carbon Dioxide 20.0 L Anion Gap 10 BUN 60 H Creatinine 2.58 H Estim Creat Clear Calc 22.79 Est GFR (MDRD) Af Amer 25 L Est GFR (MDRD) Non-Af 20 L BUN/Creatinine Ratio 23.3 H Glucose 316 H Lactic Acid Calcium 8.1 L Total Bilirubin 0.60 AST 21 ALT 25 Alkaline Phosphatase 180 H Lactate Dehydrogenase 309 H Total Creatine Kinase 280 H Troponin I High Sens 125 H* C-React Prot Ext Range 126.00 H B-Natriuretic Peptide Total Protein 7.2 Albumin 1.9 L Globulin 5.3 H Albumin/Globulin Ratio 0.4 L Procalcitonin 09/01/21 09/01/21 09/01/21 14:33 14:33 14:33 WBC RBC Hgb Hct MCV MCH MCHC RDW Std Deviation RDW Coeff of Fior Plt Count MPV Immature Gran % (Auto) Neut % (Auto) Lymph % (Auto) [place] % (Auto) Eos % (Auto) Baso % (Auto) Absolute Neuts (auto) Absolute Lymphs (auto) Nucleated RBC % Differential Comment Fibrinogen D-Dimer Quant (PE/DVT) Sodium Potassium Chloride Carbon Dioxide Anion Gap BUN Creatinine Estim Creat Clear Calc Est GFR (MDRD) Af Amer Est GFR (MDRD) Non-Af BUN/Creatinine Ratio Glucose Lactic Acid 1.7 Calcium Total Bilirubin AST ALT Alkaline Phosphatase Lactate Dehydrogenase Total Creatine Kinase Troponin I High Sens C-React Prot Ext Range B-Natriuretic Peptide 739.7 H Total Protein Albumin Globulin Albumin/Globulin Ratio Procalcitonin 1.89 H EKG Initial EKG: Attestation: I personally reviewed and interpreted this EKG as follows: Comments: Sinus tachycardia ventricular rate of 107. Critical Care Time Critical Care Time: Yes Critical care time (excluding procedures): 30-74 minutes (35 min), Including time spent:, Discussing w/Patient &/or Family/Webbing Inspector, Discussing w/Consultants, Arranging Admission or Transfer and Performing Direct Patient Care at Bedside Discharge Plan Dx/Rx/DC Orders Clinical Impression: COVID-19, Acute hypoxemic respiratory failure due to COVID-19, Elevated troponin Disposition Disposition: Acute Care Hospital [facility]
[2021-09-01 15:12] LABS: Procalcitonin 1.89 ng/mL (0.00-0.09)
[2021-09-01 15:16] LABS: Differential Comment SCANNED
[2021-09-01 15:22] LABS: ALB/GLOB Ratio 0.4 RATIO (0.9-2.4); AST(SGOT) 21 U/L (15-37); Alanine Aminotransfer ALT/SGPT 25 U/L (13-56); Albumin, Serum 1.9 g/dL (3.2-5.0); Alkaline Phosphatase 180 U/L (45-117); Anion Gap 10 (5-15); BUN 60 mg/dL (7-18); BUN/Creat Ratio 23.3 RATIO (10-20); CPK Total, Creatine Kinase 280 U/L (26-192); Calcium,Total 8.1 mg/dL (8.5-10.1); Chloride 104 mmol/L (98-107); Creatinine, Serum 2.58 mg/dL (0.55-1.02); EST Glomerular Filtration Rate 20 mL/min (>60); Est Glom Filt Rate - Afr Amer 25 mL/min (>60); Estimated Creatinine Clearance 22.79 ml/min; Globulin 5.3 g/dL (2.2-4.2); Glucose 316 mg/dL (74-106); LDH 309 U/L (84-246); Potassium 4.5 mmol/L (3.5-5.1); Protein, Total 7.2 g/dL (6.4-8.2); Sodium Level 134 mmol/L (136-145); Troponin-I HS 125 pg/mL (3.0-54.0)
[2021-09-01 15:28] LABS: Lactic Acid 1.7 mmol/L (0.4-1.9)
--- NOTE | 2021-09-01 15:30 | RAD_ITS ---
INDICATION: covid EXAMINATION/TECHNIQUE: X-RAY - XR Chest 1 View COMPARISON: Chest radiograph from 08/24/2021 FINDINGS: LINES/DEVICES: None. No focal consolidations, effusions, or sizable pneumothorax. Mild increased increased interstitial prominence. Heart size is stable. Bones and soft tissues are unchanged. RAD/Chest 1 View (Portable) IMPRESSION: 1. Mild pulmonary vascular congestion. 2. No other acute findings. Electronically Signed: Dakota Do MD at 15:53 EST Tel , Service support ,
[2021-09-01 15:34] LABS: D-Dimer Quantitative (DVT/PE) 9.02 FEU/ug/m (0.27-0.49)
--- NOTE | 2021-09-01 15:46 | HP.PCM.HOS_ITS ---
HPI - General General Date of Admission: 09/01/21 HPI Narrative The patient is a 56 y/o F w/ PMHx: HTN, HLD, Diabetes mellitus type II, CAD, Ischemic Cardiomyopathy, CKD stage IV, Chronic anemia/AOCD, Anxiety and Depression, GERD, Diabetes mellitus type II, Tobacco use, RLS, Obesity recently evaluated on 08/24/21 with at that time 3 to 5-day history of increased congestion, sore throat, cough and fatigue with ill contacts with similar symptoms however they had worsened prompting evaluation with + COVID testing discharged on decadron at that time who now re-presents to the [facility] ED on 09/01/21 with increased work of breathing, fatigue, malaise, nausea without emesis although patient is not the best historian and was remarkably disheveled and unkempt upon ED arrival with stool on her hands and leaves in her underwear. While in the ED she did cough up dark/green-colored phlegm. Work-up in the ED included 2.01.3, heart rate 122, BP 155/68, respiratory rate 24, percent on BiPAP 35% initially noted to be 86% on room air with trial of 4 L nasal cannula however patient was only 89%, CBC with WBC 22.1, hemoglobin 9.2, platelet 299 with left shift and lymphopenia, fibrinogen 818, D-dimer 9.02, CMP with sodium 134, carbon oxide 20, BUN/creatinine 60/2.58, glucose 316, lactic acid 1.7, LDH 309, T CK 280, troponin 125, CRP 126, BNP 739.7, procalcitonin 1.89, Bld Cx x 2, CXR with mild pulmonary vascular congestion otherwise no acute cardiopulmonary findings, EKG with ST without acute evidence of ischemia. In the ED patient administered tylenol and zofran. UA pending upon evaluation, preston catheter being placed. In the ED patient administered IV Rocephin, azithromycin, Zofran, Mirapex and Tylenol. [facility] Medical History Acquired varus deformity of left foot Acquired varus deformity of right foot Amputation foot, bilat Anemia Anxiety Anxiety and depression Atherosclerosis of tetlin coronary artery of tetlin heart without angina pectoris Back pain, chronic Chronic renal insufficiency Chronic ulcer of left foot with fat layer exposed Coronary artery disease Delayed wound healing Depression Diabetes Diabetic foot ulcer associated with type 2 diabetes mellitus Diabetic infection of left foot Diabetic polyneuropathy Diabetic ulcer of right ankle Essential (primary) hypertension GERD (gastroesophageal reflux disease) Hemoglobin A1c greater than 9.0% HLD (hyperlipidemia) Hypertension Ischemic cardiomyopathy Myocardial infarct Non-compliance Non-smoker Normocytic anemia NSTEMI (non-ST elevated myocardial infarction) (09/20/18) Obesity (BMI 30.0-34.9) Osteomyelitis of left foot RLS (restless legs syndrome) TIA (transient ischemic attack) Type 2 diabetes mellitus with diabetic polyneuropathy Ulcer of left foot with muscle involvement without evidence of necrosis Ulcer of right lower extremity with fat layer exposed Home Medications atorvastatin 80 mg tablet 80 mg PO QHS #90 tablet 11/30/19 [Rx Last Taken ] insulin lispro 20 unit SC TIDCM 08/31/20 [History Last Taken 07/06/21] polysaccharide iron complex 150 mg PO DAILYCM 09/12/20 [History Last Taken 07/04/21] pramipexole 1.5 mg PO BID 09/12/20 [History Last Taken 07/06/21] clopidogrel 75 mg PO DAILY #0 tablet 01/01/21 [Rx Last Taken 07/05/21] insulin glargine 100 unit/mL (3 mL) subcutaneous pen 30 unit SC DAILY ml 01/20/21 [History Last Taken 07/04/21] nitroglycerin 0.4 mg sublingual tablet 0.4 mg SL Q5-15M PRN #25 tablet 01/20/21 [Rx Last Taken 07/07/21] isosorbide mononitrate 30 mg PO DAILY 03/03/21 [History Last Taken 07/04/21] gabapentin 300 mg PO TID 07/07/21 [History Last Taken 07/06/21] melatonin 20 mg PO DAILY 07/07/21 [History Last Taken 07/06/21] oxycodone 5 mg PO BID 07/07/21 [History Last Taken 07/06/21] paroxetine HCl 20 mg PO DAILY 07/07/21 [History Last Taken 07/06/21] dexamethasone [Decadron] 6 mg PO DAILY #10 tab 08/24/21 [Rx Last Taken Unknown] promethazine-codeine 5 ml PO Q6H PRN 7 Days #140 ml 08/24/21 [Rx Last Taken Unknown] Allergy/AdvReac Type Severity Reaction Status Date / Time oxycodone [From OxyContin] Allergy feels Verified 08/24/21 10:36 like I'm drowning Penicillins Allergy swelling Verified 08/24/21 10:36 in throat vancomycin Allergy Itching Verified 08/24/21 10:36 metronidazole AdvReac Nausea Verified 08/24/21 10:36 Family History Mother Diabetes CVA (cerebral vascular accident) Brother CAD (coronary artery disease) CABG X 3 Cancer testicular Diabetes Brother CAD (coronary artery disease) CABG X3 Diabetes Brother CAD (coronary artery disease) Stents Diabetes Sister CAD (coronary artery disease) CABG x 3 CVA (cerebral vascular accident) Diabetes Surgical History (Reviewed 07/07/21 @ 16:14 by Valencia Peterson FIRE CONTROL TECHNICIAN B, FIRE CONTROL TECHNICIAN B-C) History of bilateral carpal tunnel release History of History of coronary artery stent placement (12/31/20) History of foot surgery History of rotator cuff surgery Social History (Updated 09/01/21 @ 16:[address] Ashely Barakat MD) household members: none Smoking Status: Never smoker alcohol intake: never substance use type: does not use caffeine: Yes Type: carbonated beverages Number of servings: 2 ROS ROS Narrative Admission Review of Systems: CONSTITUTIONAL: No weight loss, + fever, chills, weakness or fatigue. HEENT: + Headache. Eyes: No visual loss, blurred vision, double vision or yellow sclerae. Ears, Nose, Throat: No hearing loss, sneezing. SKIN: No rash or itching, lesions, wounds. CARDIOVASCULAR: No chest pain, chest pressure or chest discomfort, palpitations, edema, orthopnea, syncopal events. RESPIRATORY: + shortness of breath, cough, No marked sputum, wheezing, hemoptysis. GASTROINTESTINAL: + anorexia, nausea, vomiting, diarrhea, No abdominal pain, melena, BRBPR. GENITOURINARY: No dysuria, frequency, urgency or retention. NEUROLOGICAL: + headache, No dizziness, syncope, paralysis, ataxia, numbness or tingling in the extremities, focal weakness, change in bowel or bladder control, seizure. MUSCULOSKELETAL: + muscle, back pain, joint pain or stiffness. HEMATOLOGIC: + anemia, bleeding or bruising. LYMPHATICS: No enlarged nodes. No history of splenectomy. PSYCHIATRIC: + history of depression or anxiety. ENDOCRINOLOGIC: No reports of sweating, cold or heat intolerance. No polyuria or polydipsia. ALLERGIES: No history of asthma, hives, eczema or rhinitis. Vital Signs Vital Signs Vital Signs: 09/01/21 14:24 09/01/21 14:28 09/01/21 14:35 Temperature 102.9 F H 102.9 F H Temperature Source Temporal Temporal Pulse Rate 146 H 140 H 119 H Respiratory Rate 34 H 34 H 35 H Respiratory Effort Respiratory Depth Respiratory Pattern Tachypnea Blood Pressure 154/71 H 154/71 H Blood Pressure Mean 98 98 Pulse Ox 86 89 97 Oxygen Delivery Method Room Air Nasal Cannula Oxygen Flow Rate (L/min) 4 Fraction of Inspired Oxygen (FIO2) 35 09/01/21 14:45 09/01/21 14:47 09/01/21 15:10 Temperature 101.3 F H Temperature Source Temporal Pulse Rate 122 H 113 H Respiratory Rate 24 H 39 H Respiratory Effort Short of Breath Labored Accessory Muscle Use Respiratory Depth Shallow Respiratory Pattern Tachypnea Blood Pressure 155/68 H 149/64 H Blood Pressure Mean 97 92 Pulse Ox 100 98 Oxygen Delivery Method Bi-pap Bi-pap Oxygen Flow Rate (L/min) Fraction of Inspired Oxygen (FIO2) 35 35 30 09/01/21 15:20 09/01/21 15:35 Temperature 99.4 F H Temperature Source Temporal Pulse Rate 109 H 117 H Respiratory Rate 35 H 27 H Respiratory Effort Respiratory Depth Respiratory Pattern Blood Pressure 128/56 H 116/56 L Blood Pressure Mean 80 76 Pulse Ox 97 100 Oxygen Delivery Method Bi-pap Bi-pap Oxygen Flow Rate (L/min) Fraction of Inspired Oxygen (FIO2) 30 30 Weight Weight: 209 lb 3.499 oz Body Mass Index (BMI) 33.7 Physical Exam Narrative Physical Examination: General: Patient now awakens, more alert, answering orientation questions including place, year, recent events, improving cooperation, seated upright in the ED but still fatigued and ill-appearing with increased respiratory rate and accessory muscle usage, respiratory distress has improved since BiPAP initial placement. Skin: Normal color, normal turgor, no icterus, no cyanosis. HEENT: AT/NC, EOMI, PERRLA, moderately dry MM, no carotid bruits or JVD noted. Lungs: Diffusely diminished, greater bases, increased respiratory rate, accessory muscle usage, respiratory distress has somewhat improved since initial ED evaluation with BiPAP, currently transitioned off, no rales, ronchi or wheezing. Heart: Tachycardic with regular rhythm; no gallop, rub audible. Abdomen: Soft, obese, no obvious TTP, ND, distant hyperactive bowel sounds, no obvious evidence of HSM. Extremities: No cyanosis, clubbing, or edema. Neurological: Patient awake, alert, oriented as noted, cognitive function improving but likely still not baseline intact; pupils equally reactive to light and accommodation, cranial nerves II-XII grossly normal, moving all 4 extremities, no focal deficits, strength severely globally decreased secondary to acute presentation. Psychiatric: Affect appears fatigued, ill-appearing, respiratory compromise improving since initial ED presentation, no acute evidence of depressive or anxiety feelings. Results Lab / Micro Data Result Diagrams: 09/01/21 14:33 09/01/21 14:33 Labs: Laboratory Results - last 24 hr 09/01/21 14:33: WBC 22.1 H, RBC 3.45 L, Hgb 9.2 L, Hct 29.5 L, MCV 85.5, MCH 26.7 L, MCHC 31.2 L, RDW Std Deviation 45.3 H, RDW Coeff of Fior 14.7 H, Plt Count 299, MPV 11.4, Immature Gran % (Auto) 0.700, Neut % (Auto) 94.9 H, Lymph % (Auto) 2.1 L, Laporte % (Auto) 1.8, Eos % (Auto) 0.3, Baso % (Auto) 0.2, Absolute Neuts (auto) 20.9 H, Absolute Lymphs (auto) 0.47 L, Nucleated RBC % 0, Differential Comment SCANNED 09/01/21 14:33: Fibrinogen 818 H, D-Dimer Quant (PE/DVT) 9.02 H* 09/01/21 14:33: Sodium 134 L, Potassium 4.5, Chloride 104, Carbon Dioxide 20.0 L , Anion Gap 10, BUN 60 H, Creatinine 2.58 H, Estim Creat Clear Calc 22.79, Est GFR (MDRD) Af Amer 25 L, Est GFR (MDRD) Non-Af 20 L, BUN/Creatinine Ratio 23.3 H , Glucose 316 H, Calcium 8.1 L, Total Bilirubin 0.60, AST 21, ALT 25, Alkaline Phosphatase 180 H, Lactate Dehydrogenase 309 H, Total Creatine Kinase 280 H, Tro ponin I High Sens 125 H*, C-React Prot Ext Range 126.00 H, Total Protein 7.2, Albumin 1.9 L, Globulin 5.3 H, Albumin/Globulin Ratio 0.4 L 09/01/21 14:33: Lactic Acid 1.7 09/01/21 14:33: B-Natriuretic Peptide 739.7 H 09/01/21 14:33: Procalcitonin 1.89 H Assessment & Plan Assessment/Plan (1) COVID-19: (2) Acute hypoxemic respiratory failure due to COVID-19: PLAN: The patient is a 56 y/o F w/ PMHx: HTN, HLD, Diabetes mellitus type II, CAD, Ischemic Cardiomyopathy, CKD stage IV, Chronic anemia/AOCD, Anxiety and Depression, GERD, Diabetes mellitus type II, Tobacco use, RLS, Obesity recently evaluated on 08/24/21 with at that time 3 to 5-day history of increased congestion, sore throat, cough and fatigue with ill contacts with similar symptoms however they had worsened prompting evaluation with + COVID testing discharged on decadron at that time who now re-presents to the [facility] ED on 09/01/21 with increased work of breathing, fatigue, malaise, nausea without emesis although patient is not the best historian and was remarkably disheveled and unkempt upon ED arrival with stool on her hands and leaves in her underwear. #1. Acute Encephalopathy secondary to Acute Hypoxic Respiratory Failure to Acute Viral Syndrome, COVID-19 with suspected possible Superimposed bacterial inf ection, awaiting UA (leukocytosis in part likely secondary to recent steroid regimen): Will admit to the PCU, maintain on COVID precautions, given improvement in the ED on BiPAP will continue with nasal cannula supplementation given patient refusal to continue BiPAP, will maintain on oxygen with wean as tolerated to room air, PRN albuterol, HOB, IS parameters w/ pending sputum cultures, respiratory viral panel and urine antigens, patient with ED evaluation including elevated procalcitonin, given findings with stool in patient's hands and leaves in her underwear possible superinfection from urinary tract infection but unclear, will maintain on IV Rocephin pending urinalysis, maintain on hepar in drip pending bilateral lower extremity duplex ultrasound given unable to perform CTPA also in the setting of mildly elevated cardiac troponin, continue supportive care including q 2 hour turning including prone given no prone bed availability and judicious hydration, closely monitor for worsening status for ARDS and multiorgan failure, will continue Decadron recently initiated to completion, at this time patient is not a candidate for remdesivir and also has underlying renal dysfunction #2. Indeterminate cardiac enzymes: EKG in ED sinus tachycardia with no acute evidence of ischemia, CXR w/ no acute cardiopulmonary findings despite presentation as noted, initial trop 125. Will place on a monitored bed to assure no acute myocardial infarction with serial cardiac enzymes and EKGs. Will maintain on heparin drip pending COVID enzyme trending and de-escalate off if decreased. Magnesium level requested, ASA, NG, morphine. #3. Diabetes mellitus type II: Hold oral home regimen, continue home insulin regimen, ADA diet once clinically appropriate for oral intake is currently encephalopathic, accu checks w/ ISS. #4. CKD stage IV with acute renal insuffiency: Admission BUN/creatinine 60/2.58, baseline appears 1.7-2.3, mildly increased, continue treatment as noted above, repeat CMP in a.m., avoiding aggressive hydration given number 1. #5. CAD, ischemic cardiomyopathy: We'll continue patient aspirin, Plavix, statin, not on beta-kunal or ARB/MYLA inhibitor. #6. Hypertension: Continue home regimen including isosorbide hold parameters as needed, PRN hydralazine. #7. Hyperlipidemia: Continue home statin therapy. #8. Anxiety and depression: Will continue patient home paroxetine regimen. #9. Restless leg syndrome: Will continue patient home Mirapex regimen. #10. Obesity: Weight loss and lifestyle changes encouraged. #11. Tobacco Abuse: Encouraged cessation, inpatient consultation per RT, NR if desired. #12. Chronic anemia/AOCD/Fe deficiency anemia: Admission hemoglobin 9.2, stable, trend. #13. DVT prophylaxis: SCDs, heparin drip. #14. CODE status: Patient following BiPAP has mentally improved, answering questions appropriately, appears more oriented, given Covid illness with possible superinfection, discussed CODE status at length including difference between FULL code, DNR-CCA and DNR-CC status. Following discussions about the differences in these status, requested Full Code status. Advanced Care Planning Face to Face Time: 16 minutes. Charges/Coding Visit Charges Inpatient E&M: 79740 Init Hosp L3 Procedures Hospitalists Procedures: 23680 Advncd Care Plan 30 Min
[2021-09-01] MEDS: Pramipexole Di-HCl 0.25 MG Tablet PO (16:37)
--- NOTE | 2021-09-01 16:42 | ED.RN ---
CALLED TO PHARMACY FOR ANTIBIOTICS AT 1620, AND AGAIN AT 1640.
[2021-09-01 16:50] LABS: Bacteria 0 SEEN /hpf (None Seen); Mucous, Urine 0 SEEN /hpf (<or=2+); Squamous Epithelial Cells - UA 0 SEEN /hpf (5-10); White Blood Cells 0 SEEN /hpf (0-5)
[2021-09-01] MEDS: Ceftriaxone 1 GM/50 ML BAG IV (16:50)
[2021-09-01 16:55] LABS: Color, Urine Yellow (Yellow); Glucose, Dipstick 1000 mg/dl (Normal); Ketone-Dipstick 5 mg/dl (Negative); Leukocyte Esterase-Dipstick Negative /ul (Negative); Nitrite-Dipstick Negative (Negative); Occult Blood-Urine 150 /ul (Negative); Protein-Dipstick 500 mg/dl (Negative); Urine Bilirubin Dipstick Negative (Negative); Urine Clarity Clear (Clear); Urine Urobilinogen Normal (Normal)
[2021-09-01 17:08] LABS: Red Blood Cells-Urine 0-5 SEEN /hpf (0-5)
[2021-09-01 17:41] LABS: Amphetamine Urine VISTA NEGATIVE (<1000 ng/mL); Barbiturate Urine VISTA NEGATIVE (< 200 ng/mL); Benzodiazepine Urine VISTA NEGATIVE (< 200 ng/mL); Cocaine Urine VISTA NEGATIVE (< 300 ng/mL); Ecstacy Urine VISTA NEGATIVE (< 500 ng/mL); Methadone Urine VISTA NEGATIVE (< 300 ng/mL); PCP Urine VISTA NEGATIVE (< 25 ng/mL); THC Urine VISTA NEGATIVE (< 50 ng/mL); Vista UDS pH Range 4
[2021-09-01 17:46] LABS: Ferritin 302 ng/mL (8-252); Magnesium 1.3 mg/dL (1.6-2.6)
--- NOTE | 2021-09-01 17:56 | VDLE_ITS ---
Reason For Study: Elevated D-dimer RIGHT LEFT GSV is normal. GSV is normal. CFV, FV and PopV are compressible. Acute superficial vein thrombosis is noted in T/P Trunk is compressible. the mid SSV. PTV is compressible. CFV, FV and PopV are compressible. RT PerV is compressible. T/P Trunk is compressible. Procedure PTV is compressible. This is a venous duplex using B-mode, color LT PerV is compressible. flow and spectral Doppler. Exam performed portable in patient room. The exam was abbreviated due to the COVID 19 protocol. A preliminary report was called and/or faxed to [facility]. VL/Venous Duplex US - Sae Extrem Interpretation Summary No evidence for acute deep venous thrombosis bilateral lower extremities Patent and compressible bilateral great saphenous veins Superficial thrombophlebitis left mid small saphenous vein Abbreviated COVID-19 protocol utilized Ordering Physician: Ashely Barakat Referring Physician: MD Jeaneth Raúl Performed By: Erika Tubbs RVT
[2021-09-01] MEDS: 0.9% Normal Saline 1,000 ML 100 ML IV (18:17)
[2021-09-01] MEDS: Insulin Lispro 100 UNIT/ML INSULN.PEN 20 UNIT SC (19:22)
[2021-09-01 19:26] LABS: Bedside Glucose 407 mg/dL (70-110)
[2021-09-01 19:40] LABS: International Normalized Ratio 1.5; Prothrombin Time (Protime)PT. 17.5 SECONDS (11.7-14.9)
[2021-09-01 19:41] LABS: Partial Thromboplast Time 34.2 Seconds (24.1-36.2)
[2021-09-01 19:48] LABS: Troponin-I HS 1220 pg/mL (3.0-54.0)
[2021-09-01] MEDS: HEPARIN/D5w 25,000 UNITS 25,000 UNITS/250 ML IV.SOLN. 14 UNITS IV (20:03)
[2021-09-01] MEDS: Heparin Injection (Vial) 5,000 UNIT/ML VIAL 7500 UNIT IV (20:07)
--- NOTE | 2021-09-01 20:17 | NURSING ---
7500 units heparin bolus given per order. second vial would not scan verified with james rn.
[2021-09-01 21:26] LABS: Troponin-I HS 1306 pg/mL (3.0-54.0)
[2021-09-01] MEDS: Insulin Lispro 100 UNIT/ML INSULN.PEN SC (22:29)
[2021-09-01] MEDS: Atorvastatin Calcium 80 MG Tablet PO (22:31)
[2021-09-01 22:56] LABS: Bedside Glucose 400 mg/dL (70-110)
[2021-09-02] VITALS (14 sets, daily range): BP systolic 98–131; BP diastolic 53–80; PULSE 61–81; RESP 16–20; TEMP 36.2–36.8; O2SAT 94–100
--- NOTE | 2021-09-02 01:18 | EKG12_ITS ---
Test Reason : ELEV TROP Blood Pressure : / mmHG Vent. Rate : 078 BPM Atrial Rate : 078 BPM P-R Int : 166 ms QRS Dur : 092 ms QT Int : 438 ms P-R-T Axes : 061 031 054 degrees QTc Int : 499 ms Normal sinus rhythm Prolonged QT Abnormal ECG When compared with ECG of 01-SEP-2021 15:39, MANUAL COMPARISON REQUIRED, DATA IS UNCONFIRMED Confirmed by OTTO DELVALLE, DOMINIQUE ([id number]), multimedia editor HARINI PHAM ([id number]) on 09/02/2021 2:01:32 PM Referred By: AURELIA Confirmed By:DOMINIQUE MENJIVAR MD
[2021-09-02] MEDS: Acetaminophen 325 MG Tablet 650 MG PO ×2 (01:22→13:29)
[2021-09-02] MEDS: Pramipexole Di-HCl 1 MG Tablet 1.5 MG PO ×3 (02:13→22:33)
[2021-09-02 02:21] LABS: M R Staph aureus DNA By PCR Negative (Negative); Probe Check PASS; Specimen Processing Control PASS
[2021-09-02] MEDS: CLARIFY ORDER 1 EACH NOTE (02:21)
[2021-09-02] MEDS: CLARIFY ORDER NOTE (02:21)
[2021-09-02] MEDS: oxyCODONE 5 MG Tablet PO ×2 (02:31→22:48)
[2021-09-02 04:04] LABS: Absolute Lymphocyte Count 0.64 X10^3/uL (0.83-4.51); Absolute Neutrophil Count 24.4 X10^3/uL (2.0-7.7); Basophil# 0.04 X10^3/uL; Basophil% 0.2 % (0-1); Hematocrit 24.2 % (37-47); Hemoglobin 7.7 g/dL (12.0-15.0); Lymphocyte # 0.64 X10^3/ul (0.83-4.51); Lymphocyte % 2.5 % (19-41); Mean Corp Hgb Conc 31.8 g/dL (32-36); Mean Corpuscular Hgb 27.2 pg (27.0-32.0); Mean Corpuscular Volume 85.5 fL (81-99); Mean Platelet Vol. 11.1 fl (6.2-12.0); Monocyte# 0.37 X10^3/uL; Monocyte% 1.4 % (0-10); NRBC Flagged by Analyzer 0 % (0-5); Neutrophil # 24.42 X10^3/uL (2.7-7.7); Neutrophil % 95.1 % (47-70); POSITIVE DIFFERENTIAL YES; Platelet Count 220 K/mm3 (150-450); RBC Distribution Width CV 14.7 % (11.6-14.6); Red Blood Count 2.83 M/mm3 (4.2-5.4); White Blood Count 25.7 K/mm3 (4.4-11.0)
[2021-09-02 04:06] LABS: Differential Indicated SCAN CRITERIA MET
[2021-09-02 04:27] LABS: Partial Thromboplast Time 124.9 Seconds (24.1-36.2)
[2021-09-02 04:38] LABS: ALB/GLOB Ratio 0.3 RATIO (0.9-2.4); AST(SGOT) 26 U/L (15-37); Alanine Aminotransfer ALT/SGPT 24 U/L (13-56); Albumin, Serum 1.4 g/dL (3.2-5.0); Alkaline Phosphatase 135 U/L (45-117); Anion Gap 9 (5-15); BUN 69 mg/dL (7-18); BUN/Creat Ratio 24.8 RATIO (10-20); Calcium,Total 7.5 mg/dL (8.5-10.1); Chloride 106 mmol/L (98-107); Cholesterol 189 mg/dL (200); Creatinine, Serum 2.78 mg/dL (0.55-1.02); EST Glomerular Filtration Rate 19 mL/min (>60); Est Glom Filt Rate - Afr Amer 23 mL/min (>60); Estimated Creatinine Clearance 21.15 ml/min; Globulin 4.7 g/dL (2.2-4.2); Glucose 437 mg/dL (74-106); High Density Lipoprotein 58 mg/dL; Potassium 4.6 mmol/L (3.5-5.1); Protein, Total 6.1 g/dL (6.4-8.2); Sodium Level 135 mmol/L (136-145); Triglycerides 86 mg/dL; Troponin-I HS 1873 pg/mL (3.0-54.0); Very Low Density Lipoprotein 17 mg/dL (5-40)
--- NOTE | 2021-09-02 04:40 | PCM.PN.BLA ---
Progress Note Patient with 2 out of 2 positive gram-positive cocci. Continue ceftriaxone and azithromycin. Patient is allergic to vancomycin. Daptomycin 4 mg/kg x 1 ordered, adjusted for creatinine clearance. Consider further dose of daptomycin if blood cultures returned positive. Patient is allergic to vancomycin. There are multiple drug interaction with linezolid and patient's medication. Discontinue statin with ordering daptomycin.
[2021-09-02 04:50] LABS: Differential Comment SCANNED
--- NOTE | 2021-09-02 05:46 | PCS.PANDOC ---
PANDEMIC DOCUMENTATION INITIATED: Date: 05/25/2021 Time: 190
--- NOTE | 2021-09-02 05:55 | EKG12_ITS ---
Test Reason : AM EKG Blood Pressure : / mmHG Vent. Rate : 060 BPM Atrial Rate : 060 BPM P-R Int : 160 ms QRS Dur : 090 ms QT Int : 490 ms P-R-T Axes : 053 012 058 degrees QTc Int : 490 ms Normal sinus rhythm Prolonged QT Abnormal ECG When compared with ECG of 02-SEP-2021 01:38, MANUAL COMPARISON REQUIRED, DATA IS UNCONFIRMED Confirmed by OTTO DELVALLE, DOMINIQUE ([id number]), film or videotape editor HARINI PHAM ([id number]) on 09/02/2021 2:00:45 PM Referred By: MARGIE Confirmed By:DOMINIQUE MENJIVAR MD
[2021-09-02] MEDS: Insulin Lispro 100 UNIT/ML INSULN.PEN SC ×4 (06:35→22:37)
[2021-09-02 06:51] LABS: Bedside Glucose 411 mg/dL (70-110)
[2021-09-02] MEDS: Insulin Lispro 100 UNIT/ML INSULN.PEN 20 UNIT SC ×3 (08:41→17:02)
[2021-09-02] MEDS: 0.9% Saline Lock 10 ML Syringe IV ×2 (08:43→14:32)
[2021-09-02] MEDS: Iron Polysaccharide Complex 150 MG CAPSULE PO (08:51)
[2021-09-02] MEDS: Paroxetine 20 MG Tablet PO (08:52)
[2021-09-02] MEDS: Metoprolol(XL)Succ 25 MG Tablet PO ×2 (08:52→22:36)
[2021-09-02] MEDS: Isosorbide Mononitrate 30 MG Tablet PO (08:53)
[2021-09-02] MEDS: Gabapentin 300 MG Capsule PO ×3 (08:53→17:09)
[2021-09-02] MEDS: Clopidogrel Bisulfate 75 MG Tablet PO (08:53)
[2021-09-02] MEDS: Aspirin 81 MG TAB.CHEW PO (08:53)
[2021-09-02] MEDS: dexAMETHasone 2 MG TABLET 6 MG PO (08:53)
[2021-09-02] MEDS: buPROPion (XL) 150 MG TABLET.XL PO (08:59)
[2021-09-02 09:16] LABS: Bedside Glucose 445 mg/dL (70-110)
--- NOTE | 2021-09-02 09:16 | CASEMGMT ---
Addendum entered by Alida Blum 09/02/21 11:48: TC received from [facility]. As of Aug 10, pt's insurance switched to [employer] and they are not have a contract w/that insurance company, therefore, they will not be able to take pt back. Original Note: KELSIE IRELAND NOTE: Pt is active w/P[facility]iative Care. TC to [facility]--she was made aware pt has been admitted to [facility]. TC to [facility]. Pt is still active w/them and is receiving SN services. Sergio notified of pt admission to [facility]. Delta MANLEY RN, CM
--- NOTE | 2021-09-02 10:33 | CASEMGMT ---
Addendum entered by Kamilla Tinsley 09/02/21 10:44: Also per RN CM note patient is active with [facility]. Kamilla MCCORD Original Note: Assessment- SW completed assessment with patient. Living situation- Patient lives alone in a 1 story home with a basement. Her laundry room is in the basement. PCP: Jeaneth Specialists: Dr Edgar-Podiatry and Dr Matute-Pain Management Pharmacy: [facility] Pharmacy DME: knee scooter, shower bench, cane, bedside commode, and wheelchair ADL's/IADL's: Patient uses her shower bench to shower, she uses her wheelchair to get around. Patient toilets and dresses herself. Patient has been having troubles managing her meds. Patient's cousin gets her groceries for her and she also transports her. Patient also uses [facility] van for transportation to doctor's appts. Past SNF/rehab: Patient has been to [facility] and [place] in the past Past HH: Patient has had [facility] HH in the past. She is currently active with [facility] for senior living. LW: None POA: None Plan: Patient would like to go home at discharge. However, SW suggested we see how she does with therapy before deciding. Patient agreed with this plan. Patient is frustrated with her daughter as she said she does not help her at all. LUCRETIA and KELSIE IRELAND will continue to follow and assist with d/c planning as needed. Kamilla MCCORD
[2021-09-02] MEDS: Ceftriaxone 1 GM/50 ML BAG IV (10:42)
--- NOTE | 2021-09-02 11:45 | WOUNDNOTE ---
wound photo: left foot
--- NOTE | 2021-09-02 11:46 | WOUNDNOTE ---
wound photo: right foot
--- NOTE | 2021-09-02 12:44 | ECHOD_ITS ---
Reason For Study: Murmur Procedure This was a 2D Doppler, Color Flow transthoracic echocardiogram. Patient scanned supine. Exam performed portable in patient room. The exam was abbreviated due to the COVID 19 protocol. Left Ventricle Normal LV size. Mild concentric left ventricular hypertrophy. Left ventricular systolic function is normal. The estimated ejection fraction is 55 %. No regional wall motion abnormalities noted. Right Ventricle Normal RV size. Normal systolic function. Atria Normal left atrium. Normal right atrium. Mitral Valve Normal mitral valve. Tricuspid Valve Normal tricuspid valve. Mild tricuspid valve insufficiency. Pulmonary artery systolic pressure is 36 mmHg. Aortic Valve Normal aortic valve. Trisinus/trileaflet aortic valve. Pulmonic Valve Normal pulmonic valve. Great Vessels Normal aortic root. Pericardium/Pleural No pericardial effusion. MMode/2D Measurements & Calculations LVIDd: 4.9 cm IVSd: 1.2 cm LA dimension: 3.8 cm LVIDs: 3.7 cm LVPWd: 1.4 cm FS: 24.3 % LAV(MOD-bp): 53.4 ml LA A4 area: 20.5 cm2 RA A4 area: 12.3 cm2 LAV(MOD-bp) Indexed: 30.1 ml/m2 LAV(MOD-sp2): 47.4 ml LAV(MOD-sp4): 59.5 ml Doppler Measurements & Calculations TR max lex: 282.7 cm/sec TR max P.0 mmHg ECHO/Echo Complete Interpretation Summary Normal LV size. Mild concentric left ventricular hypertrophy. Left ventricular systolic function is normal. The estimated ejection fraction is 55 %. Pulmonary artery systolic pressure is 36 mmHg. Ordering Physician: Kike Tello Referring Physician: MD Jeaneth Raúl Performed By: Juancarlos Sands RCS
--- NOTE | 2021-09-02 13:32 | EKG12_ITS ---
Test Reason : CP Blood Pressure : / mmHG Vent. Rate : 076 BPM Atrial Rate : 076 BPM P-R Int : 156 ms QRS Dur : 092 ms QT Int : 424 ms P-R-T Axes : 036 011 054 degrees QTc Int : 477 ms Normal sinus rhythm Normal ECG When compared with ECG of 02-SEP-2021 05:35, MANUAL COMPARISON REQUIRED, DATA IS UNCONFIRMED Confirmed by OTTO DELVALLE, DOMINIQUE ([id number]), assistant film editor HARINI PHAM ([id number]) on 09/04/2021 7:23:46 AM Referred By: NITHYA Confirmed By:DOMINIQUE MENJIVAR MD
[2021-09-02 13:39] LABS: Partial Thromboplast Time 51.7 Seconds (24.1-36.2)
[2021-09-02 13:56] LABS: M R Staph aureus DNA By PCR Negative (Negative); Staph aureus DNA By PCR POSITIVE (Negative)
[2021-09-02 13:57] LABS: Probe Check PASS; Specimen Processing Control PASS
[2021-09-02] MEDS: DiphenhydrAMINE 25 MG Capsule PO (14:08)
[2021-09-02] MEDS: Heparin Injection (Vial) 5,000 UNIT/ML VIAL IV (14:25)
[2021-09-02 15:01] LABS: Bedside Glucose > 500 mg/dL (70-110)
[2021-09-02 15:01] LABS: Bedside Glucose > 500 mg/dL (70-110)
--- NOTE | 2021-09-02 15:13 | NURSING ---
Vancomycin started late d/t allowing time for benadryl to take effect.
--- NOTE | 2021-09-02 15:38 | PCM.RX.CS ---
Consult Pharmacy has been consulted to manage selected antiobiotic: Vancomycin Type of Consult: New start Prior Doses of Antibiotics Received/Current Regimen: Receive 2000mg iv x 1 as loading dose. Labs: Sodium 135 mmol/L (136-145) L 09/02/21 03:56 Potassium 4.6 mmol/L (3.5-5.1) 09/02/21 03:56 Chloride 106 mmol/L (98-107) 09/02/21 03:56 Carbon Dioxide 20.0 mmol/L (21.0-32.0) L 09/02/21 03:56 Anion Gap 9 (5-15) 09/02/21 03:56 BUN 69 mg/dL (7-18) H 09/02/21 03:56 Creatinine 2.78 mg/dL (0.55-1.02) H 09/02/21 03:56 Est GFR (MDRD) Af Amer 23 mL/min (>60) L 09/02/21 03:56 Est GFR (MDRD) Non-Af 19 mL/min (>60) L 09/02/21 03:56 BUN/Creatinine Ratio 24.8 RATIO (10-20) H 09/02/21 03:56 Glucose 437 mg/dL (74-106) H 09/02/21 03:56 Microbiology: Microbiology 09/01/21 14:30 Blood Culture (Wb) - Anticubital Right Bacteria Detection (PCR) - Final Staphylococcus aureus 09/01/21 14:30 Blood Culture (Wb) - Anticubital Right Blood Culture - Preliminary 09/01/21 14:30 Blood Culture (Wb) - Anticubital Left Blood Culture - Preliminary 09/01/21 19:31 Mucosa - Nasopharyngeal Respiratory Panel (PCR) - Final 09/01/21 16:44 Urine Catheter - Catheter Legionella Antigen - Final 09/01/21 16:44 Urine Catheter - Catheter Streptococcus pneumoniae Antigen (M - Final Weight used for dosin kg Estimated Creatinine Clearance: 21 ml/min Goal Trough: 15-20 mcg/mL Pharmacy Plan for Drug Dosing: Will begin 750mg iv q24h per protocol. Benadryl to be give as premed prior to infusions and rate of infusion noted to be 1/2 usual infusion rate. Trough level ordered for before 3rd total dose. Pharmacy Service will continue to monitor and adjust dosing as required. Follow-Up Labs: Trough Vancomycin - 09.04.21@1430 before 1500 dose
--- NOTE | 2021-09-02 15:45 | RAD_ITS ---
STUDY: X-RAY - LEFT FOOT CLINICAL: Female, 56 years old. Chronic foot ulcers TECHNIQUE: 3 view(s) of the foot. COMPARISON: 03/04/2021 FINDINGS: Normal talus, calcaneus, and tarsal bones. Deformity of the midfoot with pseudoarticulation and hypertrophic arthropathy compatible with neuropathic joint. Partial amputation of the fifth digit (transmetatarsal) Normal metatarsophalangeal joint of the great toe. Normal tibial and fibular sesamoid bones. Normal interphalangeal joint of the great toe. Normal phalanges of the great toe. Normal second through fifth metatarsophalangeal joints. Normal interphalangeal joints and phalanges of the lesser toes. Soft tissue swelling and ulcer of the plantar forefoot redemonstrated. RAD/Foot min 3 Views IMPRESSION: Plantar foot soft tissue swelling/ulcer without osseous erosion. Neuropathic arthropathy. Electronically Signed: Shan Cadet MD ([place]) at 22:18 EST , Service support ,
--- NOTE | 2021-09-02 15:45 | RAD_ITS ---
STUDY: X-RAY - RIGHT FOOT CLINICAL: Female, 56 years old. chronic foot ulcers TECHNIQUE: 3 view(s) of the foot. COMPARISON: 04/20/2021 FINDINGS: Normal talus, calcaneus, and tarsal bones. Deformity of the midfoot with pseudoarticulation and hypertrophic arthropathy compatible with neuropathic joint. Partial amputation of the fifth digit (transmetatarsal) Normal metatarsophalangeal joint of the great toe. Normal tibial and fibular sesamoid bones. Normal interphalangeal joint of the great toe. Normal phalanges of the great toe. Normal second through fifth metatarsophalangeal joints. Normal interphalangeal joints and phalanges of the lesser toes. Soft tissue swelling and ulcer of the plantar forefoot redemonstrated. RAD/Foot min 3 Views IMPRESSION: Plantar foot soft tissue swelling/ulcer without osseous erosion. Neuropathic arthropathy. Electronically Signed: Shan Cadet MD ([place]) at 22:17 EST , Service support ,
--- NOTE | 2021-09-02 16:03 | PCM.CONS.GEN ---
Assessment & Plan Assessment/Plan (1) COVID-19: (2) Bacteremia: PLAN: mssa bacteremia per pcr, suspect foot infection as source. Will consult podiatry, check TTE, repeat bcx. Splinter hemorrhage on L 5th finger. Wound cxs pending. Will change abx to vanc/cefepime; has tolerated vanc at slower speed before. covid - 94% on RA this afternoon. vaccinated, sx started around 08/22, isolate until 09/11/21. Stop azithro, cont dex. Will follow, thank you HPI Consult Data Date of Consult: 09/02/21 HPI Narrative HPI Narrative: DIONY ROCHA, is a 56 F with chronic B foot wounds, presented with 1-2 days of fever, chills, not feeling well, worsening foot redness/swelling/drainage. No pain in feet due to neuropathy. Developed covid around 08/21, came to ED, not hypoxic, tested (+). Has been vaccinated. Came back to ED 09/01, admitted on dapto/ceftriaxone after (+) bcx. Full ROS performed and neg except as noted above. [facility] Medical History Acquired varus deformity of left foot Acquired varus deformity of right foot Amputation foot, bilat Anemia Anemia due to chronic illness Anxiety Anxiety and depression Atherosclerosis of [place] coronary artery of [place] heart without angina pectoris Back pain, chronic Bilateral edema of lower extremity Chronic renal insufficiency Chronic ulcer of left foot with fat layer exposed Coronary artery disease Delayed wound healing Depression Diabetes Diabetic foot ulcer associated with type 2 diabetes mellitus Diabetic infection of left foot Diabetic polyneuropathy Diabetic ulcer of right ankle Essential (primary) hypertension GERD (gastroesophageal reflux disease) Hemoglobin A1c greater than 9.0% HLD (hyperlipidemia) Hyperparathyroidism, secondary renal Hypertension Iron deficiency anemia Ischemic cardiomyopathy Myocardial infarct Non-compliance Non-smoker Normocytic anemia NSTEMI (non-ST elevated myocardial infarction) (09/20/18) Obesity (BMI 30.0-34.9) Osteomyelitis of left foot RLS (restless legs syndrome) Stage 4 chronic kidney disease TIA (transient ischemic attack) 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 Ulcer of left foot with muscle involvement without evidence of necrosis Ulcer of right lower extremity with fat layer exposed Home Medications atorvastatin 80 mg tablet 80 mg PO QHS #90 tablet 02/21/20 [Rx Last Taken 07/05/21] insulin lispro 20 unit SC TIDCM 08/31/20 [History Last Taken 07/06/21] pramipexole 1.5 mg PO BID 09/12/20 [History Last Taken 07/06/21] clopidogrel 75 mg PO DAILY #0 tablet 01/01/21 [Rx Last Taken 07/05/21] isosorbide mononitrate 30 mg PO DAILY 03/03/21 [History Last Taken 07/04/21] oxycodone 5 mg PO BID PRN 07/07/21 [History Last Taken 07/06/21] paroxetine HCl 20 mg PO QHS 07/07/21 [History Last Taken 07/06/21] dexamethasone [Decadron] 6 mg PO DAILY #10 tab 08/24/21 [Rx Last Taken Unknown] Phenergan-Codeine 1 tsp PO/SL Q6H PRN PRN 09/02/21 [History Last Taken Unknown] benzonatate [Tessalon Perles] 100 mg PO TID PRN PRN 09/02/21 [History Last Taken Unknown] bupropion HCl 150 mg PO.IVFORM DAILY 09/02/21 [History Last Taken Unknown] cyclobenzaprine [Flexeril] 5 mg PO QHS 09/02/21 [History Last Taken Unknown] furosemide 40 mg PO DAILY 09/02/21 [History Last Taken Unknown] insulin glargine [Lantus Solostar U-100 Insulin] 35 unit SUBCUT BID 09/02/21 [History Last Taken Unknown] metoprolol succinate 25 mg PO BID 09/02/21 [History Last Taken Unknown] Allergy/AdvReac Type Severity Reaction Status Date / Time oxycodone [From OxyContin] Allergy feels Verified 08/24/21 10:36 like I'm drowning Penicillins Allergy swelling Verified 08/24/21 10:36 in throat vancomycin Allergy Itching Verified 08/24/21 10:36 metronidazole AdvReac Nausea Verified 08/24/21 10:36 Family History Mother Diabetes CVA (cerebral vascular accident) Brother CAD (coronary artery disease) CABG X 3 Cancer testicular Diabetes Brother CAD (coronary artery disease) CABG X3 Diabetes Brother CAD (coronary artery disease) Stents Diabetes Sister CAD (coronary artery disease) CABG x 3 CVA (cerebral vascular accident) Diabetes Surgical History History of bilateral carpal tunnel release History of History of coronary artery stent placement (12/31/20) History of foot surgery History of rotator cuff surgery Social History (Updated 09/01/21 @ 16:[address] Ashely Barakat MD) household members: none Smoking Status: Never smoker alcohol intake: never substance use type: does not use caffeine: Yes Type: carbonated beverages Number of servings: 2 Physical Exam Const alert and oriented x3 Constitutional Narrative: ill appearing General Appearance: cooperative Exam Limitations: no limitations HEENT normocephalic and head/scalp atraumatic Eyes PERRL and EOMs intact bilaterally Neck supple and No nodes Resp normal air movement and clear to auscultation bilaterally Cardio regular rate and regular rhythm GI normal to inspection, nondistended, normoactive bowel sounds Extremity Extremity Narrative: No spine pain to palpation General Extremity: edema Skin Skin Narrative: reviewed photos L 5th finger with splinter hemorrhage. Neuro CN's II-XII intact bilaterally Medical Records Data Medical Nutrition Assessment Dietitian: Malnutrition Criteria Met Start: 09/02/21 12:33 Freq: Status: Active Protocol: Document 09/02/21 12:33 RMA (Rec: 09/02/21 12:33 RMA [id number]) Nutrition Malnutrition Evidence of Malnutrition Exists Yes Malnutrition (severe): Chronic Evidenced By Suboptimal Energy Intake ( Moderate),Weight Loss (Severe) Clinical Problem Chronic Disease or Condition Related Malnutrition Etiology Severe protein/calorie malnutrition in the context of chronic disease conditions related to inadequate oral intake and ongoing poor appetite Signs/Symptoms as evidenced by~9% wt loss x past 1-2 months and inadequate oral intake meeting less than 50-75% estimated nutrition needs. Status Active Problem Recommendation Dietitian Recommendations/Changes Will change diet to 2000 calorie/consistent carbohydrate; sodium-restricted; protein- restricted due to CKD stage4. Will defer ONS due to CKD stage4. Adjust diet as needed to optimize nutrition within parameters of diet restrictions. Lab / Micro Data Result Diagrams: 09/02/21 03:56 09/02/21 03:56 Labs: Laboratory Results - last 24 hr 11/23/21 14:33: Magnesium 1.3 L, Ferritin 302 H 09/01/21 16:44: Urine Opiates Screen NEGATIVE, Urine Methadone Screen NEGATIVE, Ur Barbiturates Screen NEGATIVE, Ur Phencyclidine Scrn NEGATIVE, Ur Amphetamines Screen NEGATIVE, U Methamphetamin-MDMA NEGATIVE, U Benzodiazepines Scrn NEGATIVE, Urine Cocaine Screen NEGATIVE, U Cannabinoids Screen NEGATIVE, Ur Drug Screen Comment 09/01/21 16:44: Urine Color Yellow, Urine Clarity Clear, Urine pH 6.0, Ur Specific [place] 1.020, Urine Protein 500 H, Urine Glucose (UA) 1000 H, Urine Ketones 5 H, Urine Occult Blood 150 H, Urine Nitrite Negative, Urine Bilirubin Negative, Urine Urobilinogen Normal, Ur Leukocyte Esterase Negative, Urine RBC 0-5 SEEN, Urine WBC 0 SEEN, Ur Squamous Epith Cells 0 SEEN, Urine Bacteria 0 SEEN, Urine Mucus 0 SEEN 09/01/21 18:38: POC Glucose 407 H 09/01/21 19:05: Troponin I High Sens 1220 H* 09/01/21 19:05: PT 17.5 H, INR 1.5, APTT 34.2 09/01/21 20:40: Troponin I High Sens 1306 H* 09/01/21 22:28: POC Glucose 400 H 09/01/21 23:00: MRSA (PCR) Negative 09/02/21 03:56: WBC 25.7 H, RBC 2.83 L, Hgb 7.7 L, Hct 24.2 L, MCV 85.5, MCH 27.2, MCHC 31.8 L, RDW Std Deviation 46.0 H, RDW Coeff of Fior 14.7 H, Plt Count 220, MPV 11.1, Immature Gran % (Auto) 0.800, Neut % (Auto) 95.1 H, Lymph % (Auto) 2.5 L, [place] % (Auto) 1.4, Eos % (Auto) 0.0, Baso % (Auto) 0.2, Absolute Neuts (auto) 24.4 H, Absolute Lymphs (auto) 0.64 L, Nucleated RBC % 0, Differential Comment SCANNED 09/02/21 03:56: Sodium 135 L, Potassium 4.6, Chloride 106, Carbon Dioxide 20.0 L, Anion Gap 9, BUN 69 H, Creatinine 2.78 H, Estim Creat Clear Calc 21.15, Est GFR (MDRD) Af Amer 23 L, Est GFR (MDRD) Non-Af 19 L, BUN/Creatinine Ratio 24.8 H, Glucose 437 H, Calcium 7.5 L, Total Bilirubin 0.20, AST 26, ALT 24, Alkaline Phosphatase 135 H, Troponin I High Sens 1873 H*, Total Protein 6.1 L, Albumin 1.4 L, Globulin 4.7 H, Albumin/Globulin Ratio 0.3 L, Triglycerides 86, Cholesterol 189, LDL Cholesterol 114, VLDL Cholesterol 17, HDL Cholesterol 58 09/02/21 03:56: APTT 124.9 H* 09/02/21 06:34: POC Glucose 411 H 09/02/21 08:38: POC Glucose 445 H 09/02/21 10:40: S.aureus Protein A PCR POSITIVE H, MRSA (PCR) Negative 09/02/21 12:21: POC Glucose > 500 H* 09/02/21 12:24: POC Glucose > 500 H* 09/02/21 12:41: APTT 51.7 H Micro: Microbiology 09/01/21 14:30 Blood Culture (Wb) - Anticubital Right Bacteria Detection (PCR) - Final Staphylococcus aureus 09/01/21 14:30 Blood Culture (Wb) - Anticubital Right Blood Culture - Preliminary 09/01/21 14:30 Blood Culture (Wb) - Anticubital Left Blood Culture - Preliminary 09/01/21 19:31 Mucosa - Nasopharyngeal Respiratory Panel (PCR) - Final 09/01/21 16:44 Urine Catheter - Catheter Legionella Antigen - Final 09/01/21 16:44 Urine Catheter - Catheter Streptococcus pneumoniae Antigen (M - Final Radiology Impression Venous Doppler Study 09/01/21 17:56 Interpretation Summary No evidence for acute deep venous thrombosis bilateral lower extremities Patent and compressible bilateral great saphenous veins Superficial thrombophlebitis left mid small saphenous vein Abbreviated COVID-19 protocol utilized Ordering Physician: Ashely Barakat Referring Physician: MD Jeaneth Raúl Performed By: Erika Tubbs RVT
--- NOTE | 2021-09-02 16:28 | PCM.PN.HOSP ---
Subjective Subjective Feeling better today, no issues overnight. She says that she does have a foot ulcer due to her diabetes Objective Data Objective Data Vital Signs: Vital Signs Temp Pulse Resp BP Pulse Ox 98.1 F 79 18 120/72 94 09/02/21 13:25 09/02/21 13:25 09/02/21 13:25 09/02/21 13:25 09/02/21 15:42 Oxygen Flow Rate (L/min) 2 Oxygen Delivery Method Room Air Weight: 200 lb 9.93 oz Body Mass Index (BMI) 31.8 Intake & Output: Intake and Output for Last 24 Hours 09/01/21 09/02/21 09/03/21 03:59 03:59 03:59 Intake Total 605 / 605 2267.28 / 2267.28 Output Total 400 / 400 600 / 600 Balance 205 / 205 1667.28 / 1667.28 Medical Nutrition Assessment Dietitian: Malnutrition Criteria Met Start: 09/02/21 12:33 Freq: Status: Active Protocol: Document 09/02/21 12:33 RMA (Rec: 09/02/21 12:33 RMA [id number]) Nutrition Malnutrition Evidence of Malnutrition Exists Yes Malnutrition (severe): Chronic Evidenced By Suboptimal Energy Intake ( Moderate),Weight Loss (Severe) Clinical Problem Chronic Disease or Condition Related Malnutrition Etiology Severe protein/calorie malnutrition in the context of chronic disease conditions related to inadequate oral intake and ongoing poor appetite Signs/Symptoms as evidenced by~9% wt loss x past 1-2 months and inadequate oral intake meeting less than 50-75% estimated nutrition needs. Status Active Problem Recommendation Dietitian Recommendations/Changes Will change diet to 2000 calorie/consistent carbohydrate; sodium-restricted; protein- restricted due to CKD stage4. Will defer ONS due to CKD stage4. Adjust diet as needed to optimize nutrition within parameters of diet restrictions. Lab / Micro Data Result Diagrams: 09/02/21 03:56 09/02/21 03:56 Labs: Laboratory Results - last 24 hr 09/01/21 14:33: Magnesium 1.3 L, Ferritin 302 H 09/01/21 16:44: Urine Opiates Screen NEGATIVE, Urine Methadone Screen NEGATIVE, Ur Barbiturates Screen NEGATIVE, Ur Phencyclidine Scrn NEGATIVE, Ur Amphetamines Screen NEGATIVE, U Methamphetamin-MDMA NEGATIVE, U Benzodiazepines Scrn NEGATIVE, Urine Cocaine Screen NEGATIVE, U Cannabinoids Screen NEGATIVE, Ur Drug Screen Comment 09/01/21 16:44: Urine Color Yellow, Urine Clarity Clear, Urine pH 6.0, Ur Specific [place] 1.020, Urine Protein 500 H, Urine Glucose (UA) 1000 H, Urine Ketones 5 H, Urine Occult Blood 150 H, Urine Nitrite Negative, Urine Bilirubin Negative, Urine Urobilinogen Normal, Ur Leukocyte Esterase Negative, Urine RBC 0-5 SEEN, Urine WBC 0 SEEN, Ur Squamous Epith Cells 0 SEEN, Urine Bacteria 0 SEEN, Urine Mucus 0 SEEN 09/01/21 18:38: POC Glucose 407 H 09/01/21 19:05: Troponin I High Sens 1220 H* 09/01/21 19:05: PT 17.5 H, INR 1.5, APTT 34.2 09/01/21 20:40: Troponin I High Sens 1306 H* 09/01/21 22:28: POC Glucose 400 H 09/01/21 23:00: MRSA (PCR) Negative 09/02/21 03:56: WBC 25.7 H, RBC 2.83 L, Hgb 7.7 L, Hct 24.2 L, MCV 85.5, MCH 27.2, MCHC 31.8 L, RDW Std Deviation 46.0 H, RDW Coeff of Fior 14.7 H, Plt Count 220, MPV 11.1, Immature Gran % (Auto) 0.800, Neut % (Auto) 95.1 H, Lymph % (Auto) 2.5 L, [place] % (Auto) 1.4, Eos % (Auto) 0.0, Baso % (Auto) 0.2, Absolute Neuts (auto) 24.4 H, Absolute Lymphs (auto) 0.64 L, Nucleated RBC % 0, Differential Comment SCANNED 09/02/21 03:56: Sodium 135 L, Potassium 4.6, Chloride 106, Carbon Dioxide 20.0 L, Anion Gap 9, BUN 69 H, Creatinine 2.78 H, Estim Creat Clear Calc 21.15, Est GFR (MDRD) Af Amer 23 L, Est GFR (MDRD) Non-Af 19 L, BUN/Creatinine Ratio 24.8 H, Glucose 437 H, Calcium 7.5 L, Total Bilirubin 0.20, AST 26, ALT 24, Alkaline Phosphatase 135 H, Troponin I High Sens 1873 H*, Total Protein 6.1 L, Albumin 1.4 L, Globulin 4.7 H, Albumin/Globulin Ratio 0.3 L, Triglycerides 86, Cholesterol 189, LDL Cholesterol 114, VLDL Cholesterol 17, HDL Cholesterol 58 09/02/21 03:56: APTT 124.9 H* 09/02/21 06:34: POC Glucose 411 H 09/02/21 08:38: POC Glucose 445 H 09/02/21 10:40: S.aureus Protein A PCR POSITIVE H, MRSA (PCR) Negative 09/02/21 12:21: POC Glucose > 500 H* 09/02/21 12:24: POC Glucose > 500 H* 09/02/21 12:41: APTT 51.7 H Micro: Microbiology 09/01/21 14:30 Blood Culture (Wb) - Anticubital Right Bacteria Detection (PCR) - Final Staphylococcus aureus 09/01/21 14:30 Blood Culture (Wb) - Anticubital Right Blood Culture - Preliminary 09/01/21 14:30 Blood Culture (Wb) - Anticubital Left Blood Culture - Preliminary 09/01/21 19:31 Mucosa - Nasopharyngeal Respiratory Panel (PCR) - Final 09/01/21 16:44 Urine Catheter - Catheter Legionella Antigen - Final 09/01/21 16:44 Urine Catheter - Catheter Streptococcus pneumoniae Antigen (M - Final Radiography Diagnostic Testing: Radiology Impression Venous Doppler Study 09/01/21 17:56 Interpretation Summary No evidence for acute deep venous thrombosis bilateral lower extremities Patent and compressible bilateral great saphenous veins Superficial thrombophlebitis left mid small saphenous vein Abbreviated COVID-19 protocol utilized Ordering Physician: Ashely Barakat Referring Physician: MD Jeaneth Raúl Performed By: Erika Tubbs RVT Physical Exam Const alert, oriented x3 and no apparent distress General Appearance: cooperative HEENT normocephalic and moist oral mucous membranes Eyes PERRL, EOMs intact bilaterally and conjunctivae normal Neck supple and no JVD Resp normal respiratory effort, no retractions and no use of accessory muscles Auscultation: diminished lung sounds; Negative for crackles, rales, rhonchi or wheezes Cardio regular rate, regular rhythm, S1 normal heart sound, S2 normal heart sound and no murmurs GI soft to palpation, non-tender and non-distended; Negative for hepatosplenomegaly Extremity no clubbing, cyanosis or edema Skin no rashes or lesions noted Neuro no focal motor deficits and no sensory deficits noted Psych affect normal Appearance: appropriate Assessment & Plan Assessment/Plan (1) COVID-19: (2) Acute hypoxemic respiratory failure due to COVID-19: PLAN: 1. Acute metabolic encephalopathy secondary to acute hypoxic respiratory failure from COVID-19/diabetic foot infection with MSSA bacteremia ?Her acute respiratory failure appears to have resolved and she is now maintaining her oxygen saturations on room air ?Antibiotics were changed, she is unlikely that she has a pneumonia given her diabetic foot ulcer as a source for her infection and her white count ?Continue with Decadron, her renal function precludes remdesivir ?Continue vancomycin and cefepime it is from the vancomycin slower. We will also obtain an echo for evaluation secondary to bacteremia ?We will repeat blood cultures 2. Elevated troponin/CAD with ischemic cardiomyopathy/HTN/HLD ?Her elevated troponin is up to 1873 and she started on a heparin drip, given her Covid as well as her elevated creatinine we will manage her medically ?Continue with aspirin and Plavix ?Given her renal function cannot use an MYLA or an ARB however will continue with metoprolol ?We will order an echo ?Continue with the heparin drip 3. DM2/diabetic foot ulcer/CKD 4 with FELI ?Continue with aggressive insulin, will hold her oral regimen ?Accu-Cheks AC at bedtime with sliding scale insulin ?We will make adjustments as necessary given her Decadron ?Appreciate adjustments on antibiotics by ID ?Baseline creatinine is around 1.8 and she is currently at 2.7 consistent with an FELI 4. Anxiety/depression/restless leg syndrome ?Stable ?Continue with her home medications DVT: Heparin drip Charges/Coding Visit Charges Inpatient E&M: 85613 Subs Hosp L2
[2021-09-02] MEDS: HEPARIN/D5w 25,000 UNITS 25,000 UNITS/250 ML IV.SOLN. 12 UNITS IV (17:08)
[2021-09-02 17:21] LABS: Bedside Glucose 284 mg/dL (70-110)
--- NOTE | 2021-09-02 17:40 | CON.PCM_ITS ---
Assessment & Plan Assessment/Plan (1) Ulcer of left foot with fat layer exposed: (2) Chronic ulcer of right foot with necrosis of muscle: (3) Charcot's joint of right foot: (4) Charcot's joint of left foot: (5) Delayed wound healing: (6) Bacteremia: (7) Type 2 diabetes mellitus with diabetic polyneuropathy: PLAN: I reviewed and discussed her case today. This patient has Covid and bacteremia with unconfirmed source. She has chronic foot ulcers which certainly could be the nidus of infection. There is deteriorization noted more on the right foot with now exposed plantar fibrous tissue. There is no purulence or probing to bone or capsule structures bilateral. There is no erythema or streaking. Infection management: The wounds were initially cultured upon arrival likely before antibiotics were administered and these results are pending. Other cultures were also obtained including urine and blood and these results are also still pending. Infectious diseases management is noted. Foot x-rays do not demonstrate any new acute osseous destruction, acute Charcot changes, soft tissue emphysema or foreign body. There is prior fifth ray resections noted bilateral. She has a white blood cell count of over 23. Surgical operating room drainage or debridement is not planned at this time. I recommend continuing with antibiotics and wound care. The following work up and care recommendations were made: Dressing: Change daily with Dakin wet-to-dry solution bilateral Offload: Nonweightbearing bilateral recommended. Toe-touch for transfers only. Use assistive device. Edema: Bilateral [place] wraps. Host factors: She has multiple comorbidities including uncontrolled diabetes and significant noncompliance. She is at risk for bilateral lower extremity amputations, further systemic illness or even due to her chronic ulcers and recurrent infections. Most recently she has elected to proceed forward with more of a palliative care wound plan in the outpatient setting and now is being treated for her acute status. I answered all the patient's questions. The podiatry team will follow her biweekly while in house. Cultures and data will be followed. Thank you for the consultation. Please do not hesitate to call if you have any questions. HPI Consult Data Date of Consult: 09/02/21 HPI Narrative Reason for Consultation: chronic right foot ulcer with concern of bacteremia source HPI Narrative: DIONY ROCHA, is a 56 F who was admitted for Covid exacerbation. She was diagnosed about 12 days ago and had respiratory status change and encephalopathy. She has known chronic foot ulcers that are a potential nidus of infection for her noted bacteremia. Per chart review multiple cultures were obtained including urine, blood, and foot wounds. She denies foot pain. She also relates recent increased activity because she has been caring for her dog with a spinal injury that has been having accidents frequently in her home. She does not feel well, but is noted to be better than when she arrived. 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, bilat Anemia Anemia due to chronic illness Anxiety Anxiety and depression Atherosclerosis of [place] coronary artery of [place] heart without angina pectoris Back pain, chronic Bilateral edema of lower extremity Chronic renal insufficiency Chronic ulcer of left foot with fat layer exposed Coronary artery disease Delayed wound healing Depression Diabetes Diabetic foot ulcer associated with type 2 diabetes mellitus Diabetic infection of left foot Diabetic polyneuropathy Diabetic ulcer of right ankle Essential (primary) hypertension GERD (gastroesophageal reflux disease) Hemoglobin A1c greater than 9.0% HLD (hyperlipidemia) Hyperparathyroidism, secondary renal Hypertension Iron deficiency anemia Ischemic cardiomyopathy Myocardial infarct Non-compliance Non-smoker Normocytic anemia NSTEMI (non-ST elevated myocardial infarction) (09/20/18) Obesity (BMI 30.0-34.9) Osteomyelitis of left foot RLS (restless legs syndrome) Stage 4 chronic kidney disease TIA (transient ischemic attack) 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 Ulcer of left foot with muscle involvement without evidence of necrosis Ulcer of right lower extremity with fat layer exposed Home Medications atorvastatin 80 mg tablet 80 mg PO QHS #90 tablet 11/30/19 [Rx Last Taken 07/05/21] insulin lispro 20 unit SC TIDCM 08/31/20 [History Last Taken 07/06/21] pramipexole 1.5 mg PO BID 09/12/20 [History Last Taken 07/06/21] clopidogrel 75 mg PO DAILY #0 tablet 01/01/21 [Rx Last Taken 07/05/21] isosorbide mononitrate 30 mg PO DAILY 03/03/21 [History Last Taken 07/04/21] oxycodone 5 mg PO BID PRN 07/07/21 [History Last Taken 07/06/21] paroxetine HCl 20 mg PO QHS 07/07/21 [History Last Taken 07/06/21] dexamethasone [Decadron] 6 mg PO DAILY #10 tab 08/24/21 [Rx Last Taken Unknown] Phenergan-Codeine 1 tsp PO/SL Q6H PRN PRN 09/02/21 [History Last Taken Unknown] benzonatate [Tessalon Perles] 100 mg PO TID PRN PRN 09/02/21 [History Last Taken Unknown] bupropion HCl 150 mg PO.IVFORM DAILY 09/02/21 [History Last Taken Unknown] cyclobenzaprine [Flexeril] 5 mg PO QHS 09/02/21 [History Last Taken Unknown] furosemide 40 mg PO DAILY 09/02/21 [History Last Taken Unknown] insulin glargine [Lantus Solostar U-100 Insulin] 35 unit SUBCUT BID 09/02/21 [History Last Taken Unknown] metoprolol succinate 25 mg PO BID 09/02/21 [History Last Taken Unknown] Allergy/AdvReac Type Severity Reaction Status Date / Time oxycodone [From OxyContin] Allergy feels Verified 08/24/21 10:36 like I'm drowning Penicillins Allergy swelling Verified 08/24/21 10:36 in throat vancomycin Allergy Itching Verified 08/24/21 10:36 metronidazole AdvReac Nausea Verified 08/24/21 10:36 Family History Mother Diabetes CVA (cerebral vascular accident) Brother CAD (coronary artery disease) CABG X 3 Cancer testicular Diabetes Brother CAD (coronary artery disease) CABG X3 Diabetes Brother CAD (coronary artery disease) Stents Diabetes Sister CAD (coronary artery disease) CABG x 3 CVA (cerebral vascular accident) Diabetes Surgical History History of bilateral carpal tunnel release History of History of coronary artery stent placement (12/31/20) History of foot surgery History of rotator cuff surgery Social History (Updated 09/01/21 @ 16:[address] Ashely Barakat MD) household members: none Smoking Status: Never smoker alcohol intake: never substance use type: does not use caffeine: Yes Type: carbonated beverages Number of servings: 2 ROS ROS Narrative Admission Review of Systems: CONSTITUTIONAL:+ fever, chills, weakness or fatigue. Ears, Nose, Throat: No hearing loss, sneezing. SKIN: No rash or itching, lesions, wounds. CARDIOVASCULAR: No chest pain, chest pressure or chest discomfort, palpitations, edema, orthopnea, syncopal events. RESPIRATORY: + shortness of breath, cough GASTROINTESTINAL: nausea, vomiting, diarrhea NEUROLOGICAL: + headache, numbness or tingling in the extremities MUSCULOSKELETAL: + muscle, back pain, joint pain or stiffness. no foot pain HEMATOLOGIC: + anemia PSYCHIATRIC: + history of depression or anxiety. Physical Exam Narrative General Skin Exam: atrophy and dry skin; Negative for ecchymosis, erythema, eschar, or odor. no purulence, no streaking Wound Narrative: plantar left foot ulceration. Granular base. no maceration noted. Moderate periwound callus tissue noted. There is no erythema or edema or malodor or purulence or other suggestion signs of infection. Serous drainage noted. Plantar right foot ulceration is stable. Granular base with new proximal tendon exposure. No maceration noted. Moderate periwound callus tissue noted. There is no erythema or malodor or purulence. serosangenous drainage noted Amputations noted to bilateral fifth rays. Charcot foot deformity noted bilaterally. No gross laxity or crepitus with manipulation. Negative calf tenderness negative Jaswinder and Nuñez sign. DP and PT are diminished bilaterally Sensory Exam: extremities light-touch: decreased Const alert and oriented x3 Medical Records Data Medical Nutrition Assessment Dietitian: Malnutrition Criteria Met Start: 09/02/21 12:33 Freq: Status: Active Protocol: Document 09/02/21 12:33 RMA (Rec: 09/02/21 12:33 RMA [id number]) Nutrition Malnutrition Evidence of Malnutrition Exists Yes Malnutrition (severe): Chronic Evidenced By Suboptimal Energy Intake ( Moderate),Weight Loss (Severe) Clinical Problem Chronic Disease or Condition Related Malnutrition Etiology Severe protein/calorie malnutrition in the context of chronic disease conditions related to inadequate oral intake and ongoing poor appetite Signs/Symptoms as evidenced by~9% wt loss x past 1-2 months and inadequate oral intake meeting less than 50-75% estimated nutrition needs. Status Active Problem Recommendation Dietitian Recommendations/Changes Will change diet to 2000 calorie/consistent carbohydrate; sodium-restricted; protein- restricted due to CKD stage4. Will defer ONS due to CKD stage4. Adjust diet as needed to optimize nutrition within parameters of diet restrictions. Lab / Micro Data Result Diagrams: 09/02/21 03:56 09/02/21 03:56 Labs: Laboratory Results - last 24 hr 09/01/21 14:33: Magnesium 1.3 L, Ferritin 302 H 09/01/21 16:44: Urine Opiates Screen NEGATIVE, Urine Methadone Screen NEGATIVE, Ur Barbiturates Screen NEGATIVE, Ur Phencyclidine Scrn NEGATIVE, Ur Amphetamines Screen NEGATIVE, U Methamphetamin-MDMA NEGATIVE, U Benzodiazepines Scrn NEGATIVE, Urine Cocaine Screen NEGATIVE, U Cannabinoids Screen NEGATIVE 09/01/21 18:38: POC Glucose 407 H 09/01/21 19:05: Troponin I High Sens 1220 H* 09/01/21 19:05: PT 17.5 H, INR 1.5, APTT 34.2 09/01/21 20:40: Troponin I High Sens 1306 H* 09/01/21 22:28: POC Glucose 400 H 09/01/21 23:00: MRSA (PCR) Negative 09/02/21 03:56: WBC 25.7 H, RBC 2.83 L, Hgb 7.7 L, Hct 24.2 L, MCV 85.5, MCH 27.2, MCHC 31.8 L, RDW Std Deviation 46.0 H, RDW Coeff of Fior 14.7 H, Plt Count 220, MPV 11.1, Immature Gran % (Auto) 0.800, Neut % (Auto) 95.1 H, Lymph % (Auto) 2.5 L, [place] % (Auto) 1.4, Eos % (Auto) 0.0, Baso % (Auto) 0.2, Absolute Neuts (auto) 24.4 H, Absolute Lymphs (auto) 0.64 L, Nucleated RBC % 0, Differential Comment SCANNED 09/02/21 03:56: Sodium 135 L, Potassium 4.6, Chloride 106, Carbon Dioxide 20.0 L , Anion Gap 9, BUN 69 H, Creatinine 2.78 H, Estim Creat Clear Calc 21.15, Est GFR (MDRD) Af Amer 23 L, Est GFR (MDRD) Non-Af 19 L, BUN/Creatinine Ratio 24.8 H , Glucose 437 H, Calcium 7.5 L, Total Bilirubin 0.20, AST 26, ALT 24, Alkaline Phosphatase 135 H, Troponin I High Sens 1873 H*, Total Protein 6.1 L, Albumin 1.4 L, Globulin 4.7 H, Albumin/Globulin Ratio 0.3 L, Triglycerides 86, Ch olesterol 189, LDL Cholesterol 114, VLDL Cholesterol 17, HDL Cholesterol 58 09/02/21 03:56: APTT 124.9 H* 09/02/21 06:34: POC Glucose 411 H 09/02/21 08:38: POC Glucose 445 H 09/02/21 10:40: S.aureus Protein A PCR POSITIVE H, MRSA (PCR) Negative 09/02/21 12:21: POC Glucose > 500 H* 09/02/21 12:24: POC Glucose > 500 H* 09/02/21 12:41: APTT 51.7 H 09/02/21 17:01: POC Glucose 284 H Micro: Microbiology 09/01/21 14:30 Blood Culture (Wb) - Anticubital Right Bacteria Detection (PCR) - Final Staphylococcus aureus 09/01/21 14:30 Blood Culture (Wb) - Anticubital Right Blood Culture - Preliminary 09/01/21 14:30 Blood Culture (Wb) - Anticubital Left Blood Culture - Preliminary 09/01/21 19:31 Mucosa - Nasopharyngeal Respiratory Panel (PCR) - Final 09/01/21 16:44 Urine Catheter - Catheter Legionella Antigen - Final 09/01/21 16:44 Urine Catheter - Catheter Streptococcus pneumoniae Antigen (M - Final Radiology Impression Venous Doppler Study 09/01/21 17:56 Interpretation Summary No evidence for acute deep venous thrombosis bilateral lower extremities Patent and compressible bilateral great saphenous veins Superficial thrombophlebitis left mid small saphenous vein Abbreviated COVID-19 protocol utilized Ordering Physician: Ashely Barakat Referring Physician: MD Raúl Eric Performed By: Erika Tubbs RVT Echocardiogram 09/02/21 12:44 Interpretation Summary Normal LV size. Mild concentric left ventricular hypertrophy. Left ventricular systolic function is normal. The estimated ejection fraction is 55 %. Pulmonary artery systolic pressure is 36 mmHg. Ordering Physician: Kike Tello Referring Physician: MD Jeaneth Raúl Performed By: Juancarlos Sands, RCS
[2021-09-02 21:32] LABS: Partial Thromboplast Time 56.4 Seconds (24.1-36.2)
[2021-09-02] MEDS: Benzonatate 100 MG Capsule PO (22:48)
[2021-09-02] MEDS: cycloBENZAPRine HCl 5 MG TABLET PO (22:48)
[2021-09-02 23:00] LABS: Bedside Glucose 264 mg/dL (70-110)
[2021-09-03] VITALS (12 sets, daily range): BP systolic 115–163; BP diastolic 71–93; PULSE 67–78; RESP 16–18; TEMP 36.5–37.1; O2SAT 95–99
[2021-09-03] MEDS: Acetaminophen 325 MG Tablet 650 MG PO (02:38)
[2021-09-03 02:59] LABS: Absolute Lymphocyte Count 0.52 X10^3/uL (0.83-4.51); Absolute Neutrophil Count 23.7 X10^3/uL (2.0-7.7); Basophil# 0.02 X10^3/uL; Basophil% 0.1 % (0-1); Hematocrit 22.5 % (37-47); Hemoglobin 7.1 g/dL (12.0-15.0); Lymphocyte # 0.52 X10^3/ul (0.83-4.51); Lymphocyte % 2.1 % (19-41); Mean Corp Hgb Conc 31.6 g/dL (32-36); Mean Corpuscular Hgb 27.1 pg (27.0-32.0); Mean Corpuscular Volume 85.9 fL (81-99); Mean Platelet Vol. 11.7 fl (6.2-12.0); Monocyte# 0.53 X10^3/uL; Monocyte% 2.1 % (0-10); NRBC Flagged by Analyzer 0 % (0-5); Neutrophil # 23.66 X10^3/uL (2.7-7.7); Neutrophil % 94.1 % (47-70); POSITIVE DIFFERENTIAL YES; Platelet Count 239 K/mm3 (150-450); RBC Distribution Width CV 15.2 % (11.6-14.6); Red Blood Count 2.62 M/mm3 (4.2-5.4); White Blood Count 25.1 K/mm3 (4.4-11.0)
[2021-09-03 03:05] LABS: Differential Indicated SCAN CRITERIA MET
[2021-09-03 03:13] LABS: Partial Thromboplast Time 55.7 Seconds (24.1-36.2)
[2021-09-03 03:15] LABS: Anion Gap 11 (5-15); BUN 84 mg/dL (7-18); Calcium,Total 7.4 mg/dL (8.5-10.1); Chloride 103 mmol/L (98-107); EST Glomerular Filtration Rate 18 mL/min (>60); Est Glom Filt Rate - Afr Amer 22 mL/min (>60); Estimated Creatinine Clearance 20.28 ml/min; Glucose 375 mg/dL (74-106); Magnesium 1.9 mg/dL (1.6-2.6); Phosphorus 4.3 mg/dL (2.5-4.9); Potassium 4.5 mmol/L (3.5-5.1); Sodium Level 135 mmol/L (136-145)
[2021-09-03 03:32] LABS: Differential Comment SCANNED
[2021-09-03] MEDS: Insulin Lispro 100 UNIT/ML INSULN.PEN SC ×4 (06:57→21:45)
[2021-09-03 07:05] LABS: Bedside Glucose 426 mg/dL (70-110)
[2021-09-03 08:17] LABS: Partial Thromboplast Time 58.9 Seconds (24.1-36.2)
[2021-09-03 08:51] LABS: CPK Total, Creatine Kinase 79 U/L (26-192)
[2021-09-03] MEDS: 0.9% Normal Saline 1,000 ML 125 ML IV ×3 (09:27→21:46)
[2021-09-03] MEDS: Clopidogrel Bisulfate 75 MG Tablet PO (09:40)
[2021-09-03] MEDS: buPROPion (XL) 150 MG TABLET.XL PO (09:40)
[2021-09-03] MEDS: Isosorbide Mononitrate 30 MG Tablet PO (09:40)
[2021-09-03] MEDS: dexAMETHasone 2 MG TABLET 6 MG PO (09:40)
[2021-09-03] MEDS: Gabapentin 300 MG Capsule PO ×3 (09:40→16:52)
[2021-09-03] MEDS: Pramipexole Di-HCl 1 MG Tablet 1.5 MG PO ×2 (09:41→21:44)
[2021-09-03] MEDS: Iron Polysaccharide Complex 150 MG CAPSULE PO (09:41)
[2021-09-03] MEDS: Paroxetine 20 MG Tablet PO (09:41)
[2021-09-03] MEDS: Aspirin 81 MG TAB.CHEW PO (09:41)
[2021-09-03] MEDS: oxyCODONE 5 MG Tablet PO ×2 (09:41→21:44)
[2021-09-03] MEDS: Metoprolol(XL)Succ 25 MG Tablet PO ×2 (09:44→21:44)
[2021-09-03] MEDS: Insulin Lispro 100 UNIT/ML INSULN.PEN 20 UNIT SC ×3 (09:52→16:55)
[2021-09-03 10:11] LABS: Bedside Glucose 429 mg/dL (70-110)
--- NOTE | 2021-09-03 11:23 | PCM.PN.HOSP ---
Subjective Subjective Feels better today, no major issues overnight. She did have a stool sample sent overnight which did come back positive for occult blood. Hemoglobin this morning is 7.1. Objective Data Objective Data Vital Signs: Vital Signs Temp Pulse Resp BP Pulse Ox 98.0 F 78 16 133/73 H 98 09/03/21 09:45 09/03/21 09:45 09/03/21 09:45 09/03/21 09:45 09/03/21 09:45 Oxygen Flow Rate (L/min) 2 Oxygen Delivery Method Room Air Weight: 201 lb 4.513 oz Body Mass Index (BMI) 31.8 Intake & Output: Intake and Output for Last 24 Hours 09/02/21 09/03/21 09/04/21 03:59 03:59 03:59 Intake Total 605 / 605 3744.28 / 3744.28 410.42 / 410.42 Output Total 400 / 400 1151 / 1151 250 / 250 Balance 205 / 205 2593.28 / 2593.28 160.42 / 160.42 Medical Nutrition Assessment Dietitian: Malnutrition Criteria Met Start: 09/02/21 12:33 Freq: Status: Active Protocol: Document 09/02/21 12:33 RMA (Rec: 09/02/21 12:33 RMA [id number]) Nutrition Malnutrition Evidence of Malnutrition Exists Yes Malnutrition (severe): Chronic Evidenced By Suboptimal Energy Intake ( Moderate),Weight Loss (Severe) Clinical Problem Chronic Disease or Condition Related Malnutrition Etiology Severe protein/calorie malnutrition in the context of chronic disease conditions related to inadequate oral intake and ongoing poor appetite Signs/Symptoms as evidenced by~9% wt loss x past 1-2 months and inadequate oral intake meeting less than 50-75% estimated nutrition needs. Status Active Problem Recommendation Dietitian Recommendations/Changes Will change diet to 2000 calorie/consistent carbohydrate; sodium-restricted; protein- restricted due to CKD stage4. Will defer ONS due to CKD stage4. Adjust diet as needed to optimize nutrition within parameters of diet restrictions. Lab / Micro Data Result Diagrams: 09/03/21 02:40 09/03/21 02:40 Labs: Laboratory Results - last 24 hr 09/02/21 10:40: S.aureus Protein A PCR POSITIVE H, MRSA (PCR) Negative 09/02/21 12:21: POC Glucose > 500 H* 09/02/21 12:24: POC Glucose > 500 H* 09/02/21 12:41: APTT 51.7 H 09/02/21 17:01: POC Glucose 284 H 09/02/21 20:30: APTT 56.4 H 09/02/21 22:32: POC Glucose 264 H 09/03/21 02:40: WBC 25.1 H, RBC 2.62 L, Hgb 7.1 L, Hct 22.5 L, MCV 85.9, MCH 27.1, MCHC 31.6 L, RDW Std Deviation 48.0 H, RDW Coeff of Fior 15.2 H, Plt Count 239, MPV 11.7, Immature Gran % (Auto) 1.600 H, Neut % (Auto) 94.1 H, Lymph % (Auto) 2.1 L, [place] % (Auto) 2.1, Eos % (Auto) 0.0, Baso % (Auto) 0.1, Absolute Neuts (auto) 23.7 H, Absolute Lymphs (auto) 0.52 L, Nucleated RBC % 0, Differential Comment SCANNED 09/03/21 02:40: Sodium 135 L, Potassium 4.5, Chloride 103, Carbon Dioxide 21.0, Anion Gap 11, BUN 84 H, Creatinine 2.90 H, Estim Creat Clear Calc 20.28, Est GFR (MDRD) Af Amer 22 L, Est GFR (MDRD) Non-Af 18 L, BUN/Creatinine Ratio 29.0 H, Glucose 375 H, Calcium 7.4 L, Phosphorus 4.3, Magnesium 1.9 09/03/21 02:40: APTT 55.7 H 09/03/21 06:55: POC Glucose 426 H 09/03/21 07:40: APTT 58.9 H 09/03/21 07:40: Total Creatine Kinase 79 09/03/21 09:51: POC Glucose 429 H Micro: Microbiology 09/01/21 14:30 Blood Culture (Wb) - Anticubital Right Bacteria Detection (PCR) - Final Staphylococcus aureus 09/01/21 14:30 Blood Culture (Wb) - Anticubital Right Blood Culture - Preliminary Staphylococcus aureus Gram negative elinor 09/01/21 14:30 Blood Culture (Wb) - Anticubital Left Blood Culture - Preliminary Staphylococcus aureus Gram negative elinor 09/03/21 00:48 Stool Stool Occult Blood (MIKE) - Final Occult Blood Positive 09/01/21 19:31 Mucosa - Nasopharyngeal Respiratory Panel (PCR) - Final 09/01/21 16:44 Urine Catheter - Catheter Legionella Antigen - Final 09/01/21 16:44 Urine Catheter - Catheter Streptococcus pneumoniae Antigen (M - Final Radiography Diagnostic Testing: Radiology Impression Venous Doppler Study 09/01/21 17:56 Interpretation Summary No evidence for acute deep venous thrombosis bilateral lower extremities Patent and compressible bilateral great saphenous veins Superficial thrombophlebitis left mid small saphenous vein Abbreviated COVID-19 protocol utilized Ordering Physician: Ashely Barakat Referring Physician: MD Raúl Eric Performed By: Erika Tubbs RVT Echocardiogram 09/02/21 12:44 Interpretation Summary Normal LV size. Mild concentric left ventricular hypertrophy. Left ventricular systolic function is normal. The estimated ejection fraction is 55 %. Pulmonary artery systolic pressure is 36 mmHg. Ordering Physician: Kike Tello Referring Physician: MD Raúl Eric Performed By: Juancarlos Sands RCS Foot X-Ray 09/02/21 15:45 IMPRESSION: Plantar foot soft tissue swelling/ulcer without osseous erosion. Neuropathic arthropathy. Electronically Signed: Shan Cadet MD ([place]) at 22:17 EST , Service support , Foot X-Ray 09/02/21 15:45 IMPRESSION: Plantar foot soft tissue swelling/ulcer without osseous erosion. Neuropathic arthropathy. Electronically Signed: Shan Cadet MD ([place]) at 22:18 EST , Service support , Physical Exam Const alert, oriented x3 and no apparent distress General Appearance: cooperative HEENT normocephalic and moist oral mucous membranes Eyes PERRL, EOMs intact bilaterally and conjunctivae normal Neck supple and no JVD Resp normal respiratory effort, no retractions and no use of accessory muscles Auscultation: diminished lung sounds; Negative for crackles, rales, rhonchi or wheezes Cardio regular rate, regular rhythm, S1 normal heart sound, S2 normal heart sound and no murmurs GI soft to palpation, non-tender and non-distended; Negative for hepatosplenomegaly Extremity no clubbing, cyanosis or edema Skin no rashes or lesions noted Skin Narrative: Right lower extremity dressing intact Neuro no focal motor deficits and no sensory deficits noted Psych affect normal Appearance: appropriate Assessment & Plan Assessment/Plan (1) COVID-19: (2) Acute hypoxemic respiratory failure due to COVID-19: PLAN: 1. Acute metabolic encephalopathy secondary to acute hypoxic respiratory failure from COVID-19/diabetic foot infection with MSSA bacteremia ?Her acute respiratory failure appears to have resolved and she is now maintaining her oxygen saturations on room air ?Antibiotics were changed, unlikely that she has a pneumonia given her diabetic foot ulcer as a source for her infection and her white count ?Continue with Decadron, her renal function precludes remdesivir, will need to be aggressive in adjusting insulin ?Continue vancomycin and cefepime. Echo without any signs of vegetations, EF was normal no wall motion abnormality ?We will repeat blood cultures ?Encephalopathy has resolved as has acute hypoxic respiratory failure 2. Elevated troponin/CAD with ischemic cardiomyopathy/HTN/HLD ?Her elevated troponin is up to 1873 and she started on a heparin drip, given her Covid as well as her elevated creatinine we will manage her medically. We will continue with the heparin drip for 1 more day, and continue with her medical management. Will likely discontinue in the morning and will recheck a troponin today and tomorrow to make sure that it is trending down ?Continue with aspirin and Plavix ?Given her renal function cannot use an MYLA or an ARB however will continue with metoprolol ?Echo with an EF of 55% with no wall motion abnormality, PA pressure is 36 mmHg ?Continue with the heparin drip 3. DM2/diabetic foot ulcer/CKD 4 with FELI ?Continue with aggressive insulin, will hold her oral regimen ?Accu-Cheks AC at bedtime with sliding scale insulin ?We will make adjustments as necessary given her Decadron ?Appreciate adjustments on antibiotics by ID ?Baseline creatinine is around 1.8 and she is currently at 2.9 consistent with an FELI, will place her on IV fluids 4. Anxiety/depression/restless leg syndrome ?Stable ?Continue with her home medications 5. GI bleed/acute on chronic anemia ?Unsure as to etiology, can start a PPI ?Heparin drip as necessary for her non-STEMI, echo was unremarkable DVT: Heparin drip Charges/Coding Visit Charges Inpatient E&M: 67434 Subs Hosp L2
[2021-09-03 12:00] LABS: Ferritin 357 ng/mL (8-252); Iron 22 ug/dL (50-170); Iron Binding Capacity,Total 188 ug/dL (250-450); PERCENT IRON SATURATION 11.7 % (15.0-55.0)
[2021-09-03 12:35] LABS: Bedside Glucose 412 mg/dL (70-110)
[2021-09-03 13:08] LABS: Troponin-I HS 952 pg/mL (3.0-54.0)
[2021-09-03 13:52] LABS: Hematocrit 23.9 % (37-47); Hemoglobin 7.5 g/dL (12.0-15.0)
[2021-09-03] MEDS: DiphenhydrAMINE 25 MG Capsule PO (13:52)
[2021-09-03 15:41] LABS: Bedside Glucose 394 mg/dL (70-110)
[2021-09-03] MEDS: HEPARIN/D5w 25,000 UNITS 25,000 UNITS/250 ML IV.SOLN. 12 UNITS IV (16:50)
[2021-09-03] MEDS: cycloBENZAPRine HCl 5 MG TABLET PO (21:44)
[2021-09-03] MEDS: Benzonatate 100 MG Capsule PO (21:44)
[2021-09-03] MEDS: MELATONIN 3 MG TABLET PO (21:44)
[2021-09-03 23:55] LABS: Bedside Glucose 425 mg/dL (70-110)
[2021-09-04] VITALS (15 sets, daily range): BP systolic 140–170; BP diastolic 85–99; PULSE 67–79; RESP 16–18; TEMP 36.5–37.1; O2SAT 96–100
[2021-09-04] MEDS: 0.9% Normal Saline 1,000 ML 125 ML IV ×3 (05:44→20:54)
[2021-09-04 07:25] LABS: Absolute Lymphocyte Count 0.55 X10^3/uL (0.83-4.51); Basophil# 0.02 X10^3/uL; Basophil% 0.1 % (0-1); Hematocrit 26.4 % (37-47); Hemoglobin 8.1 g/dL (12.0-15.0); Lymphocyte # 0.55 X10^3/ul (0.83-4.51); Lymphocyte % 2.7 % (19-41); Mean Corp Hgb Conc 30.7 g/dL (32-36); Mean Corpuscular Hgb 26.6 pg (27.0-32.0); Mean Corpuscular Volume 86.8 fL (81-99); Mean Platelet Vol. 12.2 fl (6.2-12.0); Monocyte# 0.51 X10^3/uL; Monocyte% 2.5 % (0-10); NRBC Flagged by Analyzer 0 % (0-5); Neutrophil # 19.03 X10^3/uL (2.7-7.7); Neutrophil % 92.6 % (47-70); POSITIVE DIFFERENTIAL YES; Platelet Count 269 K/mm3 (150-450); RBC Distribution Width CV 15.3 % (11.6-14.6); RBC Distribution Width SD 48.9 fl (35.1-43.9); Red Blood Count 3.04 M/mm3 (4.2-5.4); White Blood Count 20.6 K/mm3 (4.4-11.0)
[2021-09-04 07:27] LABS: Differential Indicated SCAN CRITERIA MET
[2021-09-04 07:46] LABS: Partial Thromboplast Time 43.4 Seconds (24.1-36.2)
[2021-09-04 07:49] LABS: ALB/GLOB Ratio 0.3 RATIO (0.9-2.4); AST(SGOT) 27 U/L (15-37); Alanine Aminotransfer ALT/SGPT 40 U/L (13-56); Albumin, Serum 1.8 g/dL (3.2-5.0); Alkaline Phosphatase 201 U/L (45-117); Anion Gap 11 (5-15); BUN 72 mg/dL (7-18); Calcium,Total 8.5 mg/dL (8.5-10.1); Chloride 106 mmol/L (98-107); Creatinine, Serum 2.48 mg/dL (0.55-1.02); EST Glomerular Filtration Rate 21 mL/min (>60); Est Glom Filt Rate - Afr Amer 26 mL/min (>60); Estimated Creatinine Clearance 23.71 ml/min; Globulin 5.2 g/dL (2.2-4.2); Glucose 372 mg/dL (74-106); Potassium 4.6 mmol/L (3.5-5.1); Sodium Level 135 mmol/L (136-145)
[2021-09-04] MEDS: DAKIN'S SOL HALF STRENGTH (=0.25%) 1 APPLIC TOPICAL (09:14)
[2021-09-04] MEDS: Aspirin 81 MG TAB.CHEW PO (09:37)
[2021-09-04] MEDS: Clopidogrel Bisulfate 75 MG Tablet PO (09:37)
[2021-09-04] MEDS: dexAMETHasone 2 MG TABLET 6 MG PO (09:37)
[2021-09-04] MEDS: Pramipexole Di-HCl 1 MG Tablet 1.5 MG PO ×2 (09:37→20:44)
[2021-09-04] MEDS: buPROPion (XL) 150 MG TABLET.XL PO (09:37)
[2021-09-04] MEDS: Isosorbide Mononitrate 30 MG Tablet PO (09:37)
[2021-09-04] MEDS: Metoprolol(XL)Succ 25 MG Tablet PO (09:37)
[2021-09-04] MEDS: Iron Polysaccharide Complex 150 MG CAPSULE PO (09:37)
[2021-09-04] MEDS: Insulin Lispro 100 UNIT/ML INSULN.PEN 20 UNIT SC ×3 (09:38→17:40)
[2021-09-04] MEDS: Gabapentin 300 MG Capsule PO ×3 (09:38→17:42)
[2021-09-04] MEDS: Insulin Lispro 100 UNIT/ML INSULN.PEN SC ×4 (09:39→20:47)
[2021-09-04] MEDS: Paroxetine 20 MG Tablet PO (09:39)
[2021-09-04] MEDS: hydrALAZINE 20 MG/ML Vial 10 MG IV ×2 (09:52→13:50)
[2021-09-04] MEDS: 0.9% Saline Lock 10 ML Syringe IV (09:53)
[2021-09-04 10:16] LABS: Bedside Glucose 371 mg/dL (70-110)
--- NOTE | 2021-09-04 10:59 | PCM.PN.ID ---
Physical Exam Narrative Feeling about the same, no fever, no n/v/d. Const alert General Appearance: cooperative Resp normal air movement and clear to auscultation bilaterally Cardio regular rate and regular rhythm GI normal to inspection, nondistended, normoactive bowel sounds Skin Skin Narrative: feet wrapped ID ID: Route of nutrition/ use of supplements: [] Nutritional Intake: [] IV Site: [] [place] Catheter: [] Assessment & Plan Assessment/Plan (1) COVID-19: (2) Bacteremia: PLAN: mssa and enterobacter bacteremia, suspect foot infection as source. Neg TTE, will repeat bcx. Splinter hemorrhage on L 5th finger. Wound cxs pending. Cont vanc/cefepime; has tolerated vanc at slower speed before. Pt reports her dog now with paralyzed back legs, has been going to the bathroom routinely on the floor of the house; she tries to mop it up but has been walking in it a lot which would be consistent with her polymicrobial infection. covid with hypoxia, vaccinated, sx started around 08/22, isolate until 09/11/21. Cont dex. Will follow
--- NOTE | 2021-09-04 11:11 | PCM.PN.HOSP ---
Subjective Subjective Seems to be improving today, feels little better. Hemoglobin is stable and white blood cell count is coming down as his kidney function Objective Data Objective Data Vital Signs: Vital Signs Temp Pulse Resp BP Pulse Ox 98.3 F 78 16 170/86 H 100 09/04/21 09:35 09/04/21 09:52 09/04/21 09:35 09/04/21 09:35 09/04/21 09:35 Oxygen Flow Rate (L/min) 2 Oxygen Delivery Method Room Air Weight: 217 lb 6.012 oz Body Mass Index (BMI) 31.8 Intake & Output: Intake and Output for Last 24 Hours 09/03/21 09/04/21 09/05/21 03:59 03:59 03:59 Intake Total 3744.28 / 3744.28 2957.09 / 2957.09 1205.83 / 1205.83 Output Total 1151 / 1151 250 / 250 Balance 2593.28 / 2593.28 2707.09 / 2707.09 1205.83 / 1205.83 Medical Nutrition Assessment Dietitian: Malnutrition Criteria Met Start: 09/02/21 12:33 Freq: Status: Active Protocol: Document 09/02/21 12:33 RMA (Rec: 09/02/21 12:33 RMA [id number]) Nutrition Malnutrition Evidence of Malnutrition Exists Yes Malnutrition (severe): Chronic Evidenced By Suboptimal Energy Intake ( Moderate),Weight Loss (Severe) Clinical Problem Chronic Disease or Condition Related Malnutrition Etiology Severe protein/calorie malnutrition in the context of chronic disease conditions related to inadequate oral intake and ongoing poor appetite Signs/Symptoms as evidenced by~9% wt loss x past 1-2 months and inadequate oral intake meeting less than 50-75% estimated nutrition needs. Status Active Problem Recommendation Dietitian Recommendations/Changes Will change diet to 2000 calorie/consistent carbohydrate; sodium-restricted; protein- restricted due to CKD stage4. Will defer ONS due to CKD stage4. Adjust diet as needed to optimize nutrition within parameters of diet restrictions. Lab / Micro Data Result Diagrams: 09/04/21 06:50 09/04/21 06:50 Labs: Laboratory Results - last 24 hr 09/02/21 10:40: S.aureus Protein A PCR POSITIVE H, MRSA (PCR) Negative 09/03/21 07:40: Iron 22 L, TIBC 188 L, Iron Saturation 11.7 L, Ferritin 357 H 09/03/21 12:00: Troponin I High Sens 952 H* 09/03/21 12:26: POC Glucose 412 H 09/03/21 13:20: Hgb 7.5 L, Hct 23.9 L 09/03/21 15:35: POC Glucose 394 H 09/03/21 21:42: POC Glucose 425 H 09/04/21 06:50: APTT 43.4 H 09/04/21 06:50: WBC 20.6 H, RBC 3.04 L, Hgb 8.1 L, Hct 26.4 L, MCV 86.8, MCH 26.6 L, MCHC 30.7 L, RDW Std Deviation 48.9 H, RDW Coeff of Fior 15.3 H, Plt Count 269, MPV 12.2 H, Immature Gran % (Auto) 2.100 H, Neut % (Auto) 92.6 H, Lymph % (Auto) 2.7 L, [place] % (Auto) 2.5, Eos % (Auto) 0.0, Baso % (Auto) 0.1, Absolute Neuts (auto) 19.0 H, Absolute Lymphs (auto) 0.55 L, Nucleated RBC % 0, Differential Comment COMMENT 09/04/21 06:50: Sodium 135 L, Potassium 4.6, Chloride 106, Carbon Dioxide 18.0 L, Anion Gap 11, BUN 72 H, Creatinine 2.48 H, Estim Creat Clear Calc 23.71, Est GFR (MDRD) Af Amer 26 L, Est GFR (MDRD) Non-Af 21 L, BUN/Creatinine Ratio 29.0 H, Glucose 372 H, Calcium 8.5, Total Bilirubin 0.20, AST 27, ALT 40, Alkaline Phosphatase 201 H, Total Protein 7.0, Albumin 1.8 L, Globulin 5.2 H, Albumin/Globulin Ratio 0.3 L 09/04/21 09:28: POC Glucose 371 H Micro: Microbiology 09/02/21 10:40 Wound - Left Foot Gram Stain - Final 09/02/21 10:40 Wound - Left Foot Wound Culture - Preliminary Staphylococcus aureus Gram negative elinor GNR Poss Pseudomonas sp 09/02/21 14:30 Blood Culture (Wb) - Right Hand Blood Culture - Preliminary No growth in 48 hours. 09/01/21 14:30 Blood Culture (Wb) - Anticubital Right Bacteria Detection (PCR) - Final Staphylococcus aureus 09/01/21 14:30 Blood Culture (Wb) - Anticubital Right Blood Culture - Preliminary Staphylococcus aureus Enterobacter cloacae complex 09/03/21 02:40 Blood Culture (Wb) - Anticubital Right Blood Culture - Preliminary Staphylococcus aureus 09/01/21 14:30 Blood Culture (Wb) - Anticubital Left Blood Culture - Final Staphylococcus aureus Gram negative elinor 09/02/21 10:40 Wound - Right Foot Gram Stain - Final 09/02/21 10:40 Wound - Right Foot Wound Culture - Preliminary Gram positive organism Gram negative elinor 09/03/21 00:48 Stool Stool Occult Blood (MIKE) - Final Occult Blood Positive 09/01/21 19:31 Mucosa - Nasopharyngeal Respiratory Panel (PCR) - Final 09/01/21 16:44 Urine Catheter - Catheter Legionella Antigen - Final 09/01/21 16:44 Urine Catheter - Catheter Streptococcus pneumoniae Antigen (M - Final Physical Exam Const alert, oriented x3 and no apparent distress General Appearance: cooperative HEENT normocephalic and moist oral mucous membranes Eyes PERRL, EOMs intact bilaterally and conjunctivae normal Neck supple and no JVD Resp normal respiratory effort, no retractions and no use of accessory muscles Auscultation: diminished lung sounds; Negative for crackles, rales, rhonchi or wheezes Cardio regular rate, regular rhythm, S1 normal heart sound, S2 normal heart sound and no murmurs GI soft to palpation, non-tender and non-distended; Negative for hepatosplenomegaly Extremity no clubbing, cyanosis or edema Skin no rashes or lesions noted Skin Narrative: Right lower extremity dressing intact Neuro no focal motor deficits and no sensory deficits noted Psych affect normal Appearance: appropriate Assessment & Plan Assessment/Plan (1) COVID-19: (2) Acute hypoxemic respiratory failure due to COVID-19: PLAN: 1. Acute metabolic encephalopathy secondary to acute hypoxic respiratory failure from COVID-19/diabetic foot infection with MSSA bacteremia ?Her acute respiratory failure appears to have resolved and she is now maintaining her oxygen saturations on room air ?Antibiotics were changed, unlikely that she has a pneumonia given her diabetic foot ulcer as a source for her infection and her white count ?Continue with Decadron, her renal function precludes remdesivir, will need to be aggressive in adjusting insulin ?Continue vancomycin and cefepime. Echo without any signs of vegetations, EF was normal no wall motion abnormality ?Repeat blood cultures on 09/02/2021 and 09/03/2021 are comes back positive, repeat blood culture today ?Encephalopathy has resolved as has acute hypoxic respiratory failure 2. Elevated troponin/CAD with ischemic cardiomyopathy/HTN/HLD ?Her elevated troponin is up to 1873 and she started on a heparin drip, given her Covid as well as her elevated creatinine we will manage her medically. We will repeat troponin today if continues to trend downward will stop heparin drip ?Continue with aspirin and Plavix ?Given her renal function cannot use an MYLA or an ARB, blood pressure is still elevated will transition to Coreg twice daily dosing ?Echo with an EF of 55% with no wall motion abnormality, PA pressure is 36 mmHg Next 3. DM2/diabetic foot ulcer/CKD 4 with FELI ?Continue with aggressive insulin, will hold her oral regimen ?Accu-Cheks AC at bedtime with sliding scale insulin ?We will make adjustments as necessary given her Decadron ?Appreciate adjustments on antibiotics by ID ?Baseline creatinine is around 1.8 renal function peaked at 2.9, will continue to monitor and trending downward continue with IV fluid 4. Anxiety/depression/restless leg syndrome ?Stable ?Continue with her home medications 5. GI bleed/acute on chronic anemia ?Unsure as to etiology, can start a PPI ?Heparin drip as necessary for her non-STEMI, echo was unremarkable DVT: Heparin drip Charges/Coding Visit Charges Inpatient E&M: 59061 Subs Hosp L2
--- NOTE | 2021-09-04 12:15 | CASEMGMT ---
LUCRETIA spoke with patient about her discharge plan. Patient still insists she is going home at discharge. SW let her know that [facility] is not able to take her back as her insurance has changed and they do not take her insurance. Patient was disappointed as she really likes the nurse that comes out. She is open to another home health agency until she can maybe switch her insurance back to what she had prior. She had [facility] in the past and would be okay with them. LUCRETIA notified KELSIE MCCORD
[2021-09-04 12:24] LABS: Troponin-I HS 525 pg/mL (3.0-54.0)
[2021-09-04] MEDS: DiphenhydrAMINE 25 MG Capsule PO (12:59)
[2021-09-04] MEDS: Mag Hydrox/Al Hydrox/Simeth 30 ML UDC PO (13:08)
[2021-09-04 13:20] LABS: Bedside Glucose 326 mg/dL (70-110)
--- NOTE | 2021-09-04 14:51 | PHA.PHARE_ITS ---
Consult Pharmacy has been consulted to manage selected antiobiotic: Vancomycin Type of Consult: Follow-up Suspected Infection: Pneumonia Labs: Sodium 135 mmol/L (136-145) L 09/04/21 06:50 Potassium 4.6 mmol/L (3.5-5.1) 09/04/21 06:50 Chloride 106 mmol/L (98-107) 09/04/21 06:50 Carbon Dioxide 18.0 mmol/L (21.0-32.0) L 09/04/21 06:50 Anion Gap 11 (5-15) 09/04/21 06:50 BUN 72 mg/dL (7-18) H 09/04/21 06:50 Creatinine 2.48 mg/dL (0.55-1.02) H 09/04/21 06:50 Est GFR (MDRD) Af Amer 26 mL/min (>60) L 09/04/21 06:50 Est GFR (MDRD) Non-Af 21 mL/min (>60) L 09/04/21 06:50 BUN/Creatinine Ratio 29.0 RATIO (10-20) H 09/04/21 06:50 Glucose 372 mg/dL (74-106) H 09/04/21 06:50 Microbiology: Microbiology 09/02/21 10:40 Wound - Right Foot Gram Stain - Final 09/02/21 10:40 Wound - Right Foot Wound Culture - Preliminary Staphylococcus aureus Gram positive elinor Gram negative elinor 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 09/01/21 14:30 Blood Culture (Wb) - Anticubital Right Bacteria Detection (PCR) - Final Staphylococcus aureus 09/01/21 14:30 Blood Culture (Wb) - Anticubital Right Blood Culture - Preliminary Staphylococcus aureus Enterobacter cloacae complex 09/03/21 02:40 Blood Culture (Wb) - Anticubital Right Blood Culture - Preliminary Staphylococcus aureus 09/01/21 14:30 Blood Culture (Wb) - Anticubital Left Blood Culture - Final Staphylococcus aureus Gram negative elinor 09/03/21 00:48 Stool Stool Occult Blood (MIKE) - Final Occult Blood Positive 09/01/21 19:31 Mucosa - Nasopharyngeal Respiratory Panel (PCR) - Final 09/01/21 16:44 Urine Catheter - Catheter Legionella Antigen - Final 09/01/21 16:44 Urine Catheter - Catheter Streptococcus pneumoniae Antigen (M - Final Goal Trough: 15-20 mcg/mL Pharmacy Plan for Drug Dosing: VANCOMYCIN LEVEL RECEIVED Current Vancomycin Dose: 750mg q24 (1500) Number of Doses Received: 2000mg x1, 750mg x2 Vancomycin Level: not drawn due to dose being hung early. Hours Since Last Dose: Renal Function: SrCr 2.48 Renal Function Trend: Improving Lab/Micro: Vancomycin Plan/Comments: continue current dose of 750mg q24h. will order trough before the next dose Pending Level: 09/05/21 at 1430 Pharmacy Service will continue to monitor and adjust dosing as required. Follow-Up Labs: Trough Vancomycin - 09/05/21 at 1430
[2021-09-04 18:26] LABS: Bedside Glucose 252 mg/dL (70-110)
[2021-09-04] MEDS: cycloBENZAPRine HCl 5 MG TABLET PO (20:44)
[2021-09-04] MEDS: Docusate Sodium 100 MG Capsule PO (20:44)
[2021-09-04] MEDS: Carvedilol 6.25 MG Tablet PO (20:44)
[2021-09-04] MEDS: oxyCODONE 5 MG Tablet PO (20:53)
[2021-09-04 22:45] LABS: Bedside Glucose 280 mg/dL (70-110)
[2021-09-05] VITALS (13 sets, daily range): BP systolic 144–170; BP diastolic 71–98; PULSE 63–83; RESP 16–18; TEMP 36.4–36.7; O2SAT 96–100
[2021-09-05] MEDS: Polyethylene Glycol 3350 17 GM PACKET PO (01:42)
[2021-09-05] MEDS: 0.9% Normal Saline 1,000 ML 125 ML IV ×3 (05:01→22:26)
[2021-09-05 06:36] LABS: Absolute Lymphocyte Count 0.63 X10^3/uL (0.83-4.51); Absolute Neutrophil Count 14.9 X10^3/uL (2.0-7.7); Basophil# 0.02 X10^3/uL; Basophil% 0.1 % (0-1); Hematocrit 23.5 % (37-47); Hemoglobin 7.2 g/dL (12.0-15.0); Lymphocyte # 0.63 X10^3/ul (0.83-4.51); Lymphocyte % 3.8 % (19-41); Mean Corp Hgb Conc 30.6 g/dL (32-36); Mean Corpuscular Hgb 26.4 pg (27.0-32.0); Mean Corpuscular Volume 86.1 fL (81-99); Mean Platelet Vol. 12.3 fl (6.2-12.0); Monocyte# 0.42 X10^3/uL; Monocyte% 2.6 % (0-10); NRBC Flagged by Analyzer 0 % (0-5); Neutrophil # 14.92 X10^3/uL (2.7-7.7); Neutrophil % 91.1 % (47-70); Platelet Count 258 K/mm3 (150-450); RBC Distribution Width CV 15.3 % (11.6-14.6); RBC Distribution Width SD 48.4 fl (35.1-43.9); Red Blood Count 2.73 M/mm3 (4.2-5.4); White Blood Count 16.4 K/mm3 (4.4-11.0)
[2021-09-05 06:50] LABS: Partial Thromboplast Time 29.4 Seconds (24.1-36.2)
[2021-09-05 06:58] LABS: Anion Gap 8 (5-15); BUN 67 mg/dL (7-18); BUN/Creat Ratio 33.3 RATIO (10-20); Calcium,Total 8.5 mg/dL (8.5-10.1); Chloride 111 mmol/L (98-107); Creatinine, Serum 2.01 mg/dL (0.55-1.02); EST Glomerular Filtration Rate 27 mL/min (>60); Est Glom Filt Rate - Afr Amer 33 mL/min (>60); Estimated Creatinine Clearance 29.26 ml/min; Glucose 233 mg/dL (74-106); Potassium 4.9 mmol/L (3.5-5.1); Sodium Level 137 mmol/L (136-145)
[2021-09-05] MEDS: Gabapentin 300 MG Capsule PO ×3 (08:23→17:18)
[2021-09-05] MEDS: Iron Polysaccharide Complex 150 MG CAPSULE PO (08:23)
[2021-09-05] MEDS: Senna Tablet 2 TABLET PO (08:23)
[2021-09-05] MEDS: Paroxetine 20 MG Tablet PO (08:24)
[2021-09-05] MEDS: Carvedilol 6.25 MG Tablet PO ×2 (08:25→22:14)
[2021-09-05] MEDS: Docusate Sodium 100 MG Capsule PO ×2 (08:25→22:14)
[2021-09-05] MEDS: Clopidogrel Bisulfate 75 MG Tablet PO (08:25)
[2021-09-05] MEDS: Aspirin 81 MG TAB.CHEW PO (08:25)
[2021-09-05] MEDS: buPROPion (XL) 150 MG TABLET.XL PO (08:25)
[2021-09-05] MEDS: Isosorbide Mononitrate 30 MG Tablet PO (08:26)
[2021-09-05] MEDS: dexAMETHasone 2 MG TABLET 6 MG PO (08:26)
[2021-09-05] MEDS: Pramipexole Di-HCl 1 MG Tablet 1.5 MG PO ×2 (08:26→22:14)
[2021-09-05] MEDS: Insulin Lispro 100 UNIT/ML INSULN.PEN 20 UNIT SC ×3 (08:32→17:18)
[2021-09-05] MEDS: Insulin Lispro 100 UNIT/ML INSULN.PEN SC ×4 (08:32→21:54)
[2021-09-05] MEDS: DAKIN'S SOL HALF STRENGTH (=0.25%) 1 APPLIC TOPICAL (08:33)
[2021-09-05 08:56] LABS: Bedside Glucose 194 mg/dL (70-110)
[2021-09-05] MEDS: hydrALAZINE 20 MG/ML Vial 10 MG IV ×2 (12:21→22:15)
[2021-09-05 12:25] LABS: Bedside Glucose 209 mg/dL (70-110)
--- NOTE | 2021-09-05 12:47 | PN.HOSP_ITS ---
Subjective Subjective Doing well, feels much better than when she came in. No issues overnight. Culture data continues to come back wound cultures with staph aureus, Pseudomonas, Klebsiella, and Enterobacter. Blood cultures are still pending to be - 09/03/2021 blood culture is still positive for MSSA Objective Data Objective Data Vital Signs: Vital Signs Temp Pulse Resp BP Pulse Ox 97.8 F 71 16 164/93 H 100 09/05/21 12:18 09/05/21 12:21 09/05/21 12:18 09/05/21 12:18 09/05/21 12:18 Oxygen Flow Rate (L/min) 2 Oxygen Delivery Method Room Air Weight: 215 lb 9.793 oz Body Mass Index (BMI) 31.8 Intake & Output: Intake and Output for Last 24 Hours 09/04/21 09/05/21 09/06/21 03:59 03:59 03:59 Intake Total 2957.09 / 2957.09 4480.83 / 4480.83 1810 / 1810 Output Total 250 / 250 800 / 800 Balance 2707.09 / 2707.09 3680.83 / 3680.83 1810 / 1810 Medical Nutrition Assessment Dietitian: Malnutrition Criteria Met Start: 09/02/21 12:33 Freq: Status: Active Protocol: Document 09/02/21 12:33 RMA (Rec: 09/02/21 12:33 RMA [id number]) Nutrition Malnutrition Evidence of Malnutrition Exists Yes Malnutrition (severe): Chronic Evidenced By Suboptimal Energy Intake ( Moderate),Weight Loss (Severe) Clinical Problem Chronic Disease or Condition Related Malnutrition Etiology Severe protein/calorie malnutrition in the context of chronic disease conditions related to inadequate oral intake and ongoing poor appetite Signs/Symptoms as evidenced by~9% wt loss x past 1-2 months and inadequate oral intake meeting less than 50-75% estimated nutrition needs. Status Active Problem Recommendation Dietitian Recommendations/Changes Will change diet to 2000 calorie/consistent carbohydrate; sodium-restricted; protein- restricted due to CKD stage4. Will defer ONS due to CKD stage4. Adjust diet as needed to optimize nutrition within parameters of diet restrictions. Lab / Micro Data Result Diagrams: 09/05/21 05:48 09/05/21 05:48 Labs: Laboratory Results - last 24 hr 09/04/21 12:57: POC Glucose 326 H 09/04/21 17:06: POC Glucose 252 H 09/04/21 20:43: POC Glucose 280 H 09/05/21 05:48: APTT 29.4 09/05/21 05:48: WBC 16.4 H, RBC 2.73 L, Hgb 7.2 L, Hct 23.5 L, MCV 86.1, MCH 26.4 L, MCHC 30.6 L, RDW Std Deviation 48.4 H, RDW Coeff of Fior 15.3 H, Plt Count 258, MPV 12.3 H, Immature Gran % (Auto) 2.400 H, Neut % (Auto) 91.1 H, Lymph % (Auto) 3.8 L, [place] % (Auto) 2.6, Eos % (Auto) 0.0, Baso % (Auto) 0.1, Absolute Neuts (auto) 14.9 H, Absolute Lymphs (auto) 0.63 L, Nucleated RBC % 0 09/05/21 05:48: Sodium 137, Potassium 4.9, Chloride 111 H, Carbon Dioxide 18.0 L , Anion Gap 8, BUN 67 H, Creatinine 2.01 H, Estim Creat Clear Calc 29.26, Est GFR (MDRD) Af Amer 33 L, Est GFR (MDRD) Non-Af 27 L, BUN/Creatinine Ratio 33.3 H , Glucose 233 H, Calcium 8.5 09/05/21 08:21: POC Glucose 194 H 09/05/21 12:14: POC Glucose 209 H Micro: Microbiology 09/02/21 10:40 Wound - Left Foot Gram Stain - Final 09/02/21 10:40 Wound - Left Foot Wound Culture - Final Staphylococcus aureus Enterobacter cloacae complex Pseudomonas aeroginosa 09/02/21 10:40 Wound - Right Foot Gram Stain - Final 09/02/21 10:40 Wound - Right Foot Wound Culture - Final Staphylococcus aureus Corynebacterium striatum Pseudomonas aeroginosa Klebsiella oxytoca Enterobacter cloacae complex 09/02/21 14:30 Blood Culture (Wb) - Right Hand Blood Culture - Preliminary No growth in 48 hours. 09/01/21 14:30 Blood Culture (Wb) - Anticubital Right Bacteria Detection (PCR) - Final Staphylococcus aureus 09/01/21 14:30 Blood Culture (Wb) - Anticubital Right Blood Culture - Preliminary Staphylococcus aureus Enterobacter cloacae complex 09/03/21 02:40 Blood Culture (Wb) - Anticubital Right Blood Culture - Prelim inary Staphylococcus aureus 09/01/21 14:30 Blood Culture (Wb) - Anticubital Left Blood Culture - Final Staphylococcus aureus Gram negative elinor 09/03/21 00:48 Stool Stool Occult Blood (MIKE) - Final Occult Blood Positive 09/01/21 19:31 Mucosa - Nasopharyngeal Respiratory Panel (PCR) - Final 09/01/21 16:44 Urine Catheter - Catheter Legionella Antigen - Final 09/01/21 16:44 Urine Catheter - Catheter Streptococcus pneumoniae Antigen (M - Final Physical Exam Narrative Const alert, oriented x3 and no apparent distress General Appearance: cooperative HEENT normocephalic and moist oral mucous membranes Eyes PERRL, EOMs intact bilaterally and conjunctivae normal Neck supple and no JVD Resp normal respiratory effort, no retractions and no use of accessory muscles Auscultation: diminished lung sounds; Negative for crackles, rales, rhonchi or wheezes Cardio regular rate, regular rhythm, S1 normal heart sound, S2 normal heart sound and no murmurs GI soft to palpation, non-tender and non-distended; Negative for hepatosplenomegaly Extremity no clubbing, cyanosis or edema Skin no rashes or lesions noted Skin Narrative: Right lower extremity dressing intact Neuro no focal motor deficits and no sensory deficits noted Psych affect normal Appearance: appropriate Assessment & Plan Assessment/Plan (1) COVID-19: (2) Acute hypoxemic respiratory failure due to COVID-19: PLAN: 1. Acute metabolic encephalopathy secondary to acute hypoxic respiratory failure from COVID-19/diabetic foot infection with MSSA bacteremia ?Her acute respiratory failure appears to have resolved and she is now maintaining her oxygen saturations on room air ?Antibiotics were changed, unlikely that she has a pneumonia given her diabetic foot ulcer as a source for her infection and her white count ?Continue with Decadron, her renal function precludes remdesivir, will need to be aggressive in adjusting insulin ?Continue vancomycin and cefepime. Echo without any signs of vegetations, EF was normal no wall motion abnormality ?Repeat blood cultures on 09/02/2021 and 09/03/2021 are comes back positive, repeat blood culture today ?Encephalopathy has resolved as has acute hypoxic respiratory failure ?Wound cultures with Pseudomonas, Enterobacter, Klebsiella all of which are sensitive to cefepime 2. Elevated troponin/CAD with ischemic cardiomyopathy/HTN/HLD ?Her elevated troponin is up to 1873 and she started on a heparin drip, given her Covid as well as her elevated creatinine we will manage her medically. We will repeat troponin today if continues to trend downward will stop heparin drip ?Continue with aspirin and Plavix ?Given her renal function cannot use an MYLA or an ARB, blood pressure is still elevated will transition to Coreg twice daily dosing ?Echo with an EF of 55% with no wall motion abnormality, PA pressure is 36 mmHg 3. DM2/diabetic foot ulcer/CKD 4 with FELI ?Continue with aggressive insulin, will hold her oral regimen ?Accu-Cheks AC at bedtime with sliding scale insulin ?We will make adjustments as necessary given her Decadron ?Appreciate adjustments on antibiotics by ID ?Baseline creatinine is around 1.8 renal function peaked at 2.9, will continue to monitor and trending downward continue with IV fluid 4. Anxiety/depression/restless leg syndrome ?Stable ?Continue with her home medications 5. GI bleed/acute on chronic anemia ?Unsure as to etiology, can start a PPI ?Discontinued the heparin drip, her hemoglobin has basically been all over the place, she has not received any transfusions while here and she did have an improvement from 7.1 to 8.1 today she is 7.2. Will repeat in the morning if she continues to drop or stayed as well we will transfuse and consult GI for evaluation DVT: SCDs Charges/Coding Visit Charges Inpatient E&M: 40728 Subs Hosp L2
[2021-09-05] MEDS: oxyCODONE 5 MG Tablet PO ×2 (14:08→22:13)
[2021-09-05] MEDS: DiphenhydrAMINE 25 MG Capsule PO (14:08)
[2021-09-05 15:13] LABS: Vancomycin, Trough Level 19.2 ug/mL (5.0-15.0)
--- NOTE | 2021-09-05 15:20 | PCM.RX.CS ---
Consult Pharmacy has been consulted to manage selected antiobiotic: Vancomycin Type of Consult: Follow-up Suspected Infection: Bacteremia Labs: Sodium 137 mmol/L (136-145) 09/05/21 05:48 Potassium 4.9 mmol/L (3.5-5.1) 09/05/21 05:48 Chloride 111 mmol/L (98-107) H 09/05/21 05:48 Carbon Dioxide 18.0 mmol/L (21.0-32.0) L 09/05/21 05:48 Anion Gap 8 (5-15) 09/05/21 05:48 BUN 67 mg/dL (7-18) H 09/05/21 05:48 Creatinine 2.01 mg/dL (0.55-1.02) H 09/05/21 05:48 Est GFR (MDRD) Af Amer 33 mL/min (>60) L 09/05/21 05:48 Est GFR (MDRD) Non-Af 27 mL/min (>60) L 09/05/21 05:48 BUN/Creatinine Ratio 33.3 RATIO (10-20) H 09/05/21 05:48 Glucose 233 mg/dL (74-106) H 09/05/21 05:48 Vancomycin Trough 19.2 ug/mL (5.0-15.0) H 09/05/21 14:25 Microbiology: Microbiology 09/02/21 10:40 Wound - Left Foot Gram Stain - Final 09/02/21 10:40 Wound - Left Foot Wound Culture - Final Staphylococcus aureus Enterobacter cloacae complex Pseudomonas aeroginosa 09/02/21 10:40 Wound - Right Foot Gram Stain - Final 09/02/21 10:40 Wound - Right Foot Wound Culture - Final Staphylococcus aureus Corynebacterium striatum Pseudomonas aeroginosa Klebsiella oxytoca Enterobacter cloacae complex 09/02/21 14:30 Blood Culture (Wb) - Right Hand Blood Culture - Preliminary No growth in 48 hours. 09/01/21 14:30 Blood Culture (Wb) - Anticubital Right Bacteria Detection (PCR) - Final Staphylococcus aureus 09/01/21 14:30 Blood Culture (Wb) - Anticubital Right Blood Culture - Preliminary Staphylococcus aureus Enterobacter cloacae complex 09/03/21 02:40 Blood Culture (Wb) - Anticubital Right Blood Culture - Preliminary Staphylococcus aureus 09/01/21 14:30 Blood Culture (Wb) - Anticubital Left Blood Culture - Final Staphylococcus aureus Gram negative elinor 09/03/21 00:48 Stool Stool Occult Blood (MIKE) - Final Occult Blood Positive 09/01/21 19:31 Mucosa - Nasopharyngeal Respiratory Panel (PCR) - Final 09/01/21 16:44 Urine Catheter - Catheter Legionella Antigen - Final 09/01/21 16:44 Urine Catheter - Catheter Streptococcus pneumoniae Antigen (M - Final Pharmacy Plan for Drug Dosing: VANCOMYCIN LEVEL RECEIVED Current Vancomycin Dose: 750MG Q24 Number of Doses Received: 2000MG X1, 750MG X2 Vancomycin Level: 19.2 MG/DL Hours Since Last Dose: 24 Renal Function: SCR 2.01, CRCL 29 ML/MIN Renal Function Trend: IMPROVED Lab/Micro: STAPH IN BLOOD CX Vancomycin Plan/Comments: 24 HOUR TROUGH IS THERAPEUTIC, WILL CONTINUE CURRENT DOSING AND ORDER A TROUGH IN 2 DAYS. Pending Level: 09/07/21 @ 1430 Pharmacy Service will continue to monitor and adjust dosing as required.
[2021-09-05 17:30] LABS: Bedside Glucose 202 mg/dL (70-110)
[2021-09-05 22:05] LABS: Bedside Glucose 238 mg/dL (70-110)
[2021-09-05] MEDS: MELATONIN 3 MG TABLET PO (22:13)
[2021-09-05] MEDS: cycloBENZAPRine HCl 5 MG TABLET PO (22:14)
[2021-09-05] MEDS: 0.9% Saline Lock 10 ML Syringe IV (22:16)
[2021-09-06] VITALS (12 sets, daily range): BP systolic 135–167; BP diastolic 67–95; PULSE 68–84; RESP 16–18; TEMP 36.3–36.6; O2SAT 95–100
[2021-09-06] MEDS: 0.9% Normal Saline 1,000 ML 125 ML IV ×2 (04:16→17:46)
[2021-09-06] MEDS: DAKIN'S SOL HALF STRENGTH (=0.25%) 1 APPLIC TOPICAL (08:58)
[2021-09-06] MEDS: Polyethylene Glycol 3350 17 GM PACKET PO ×2 (08:58→21:40)
[2021-09-06] MEDS: Insulin Lispro 100 UNIT/ML INSULN.PEN 20 UNIT SC ×3 (08:58→17:44)
[2021-09-06] MEDS: oxyCODONE 5 MG Tablet PO ×2 (09:00→21:39)
[2021-09-06] MEDS: Pramipexole Di-HCl 1 MG Tablet 1.5 MG PO ×2 (09:00→21:38)
[2021-09-06] MEDS: Iron Polysaccharide Complex 150 MG CAPSULE PO (09:00)
[2021-09-06] MEDS: Docusate Sodium 100 MG Capsule PO ×2 (09:01→21:50)
[2021-09-06] MEDS: Aspirin 81 MG TAB.CHEW PO (09:01)
[2021-09-06] MEDS: Senna Tablet 2 TABLET PO (09:01)
[2021-09-06] MEDS: buPROPion (XL) 150 MG TABLET.XL PO (09:01)
[2021-09-06] MEDS: Clopidogrel Bisulfate 75 MG Tablet PO (09:01)
[2021-09-06] MEDS: Carvedilol 6.25 MG Tablet PO ×2 (09:02→21:39)
[2021-09-06] MEDS: Isosorbide Mononitrate 30 MG Tablet PO (09:02)
[2021-09-06] MEDS: Gabapentin 300 MG Capsule PO ×3 (09:02→17:42)
[2021-09-06] MEDS: Paroxetine 20 MG Tablet PO (09:02)
[2021-09-06] MEDS: dexAMETHasone 2 MG TABLET 6 MG PO (09:02)
[2021-09-06 09:10] LABS: Bedside Glucose 116 mg/dL (70-110)
[2021-09-06 09:41] LABS: Absolute Lymphocyte Count 0.95 X10^3/uL (0.83-4.51); Absolute Neutrophil Count 13.3 X10^3/uL (2.0-7.7); Basophil# 0.02 X10^3/uL; Basophil% 0.1 % (0-1); Eosinophil# 0.01 X10^3/uL; Eosinophils% 0.1 % (0-5); Hematocrit 23.8 % (37-47); Hemoglobin 7.3 g/dL (12.0-15.0); Lymphocyte # 0.95 X10^3/ul (0.83-4.51); Lymphocyte % 6.2 % (19-41); Mean Corp Hgb Conc 30.7 g/dL (32-36); Mean Corpuscular Hgb 26.5 pg (27.0-32.0); Mean Corpuscular Volume 86.5 fL (81-99); Monocyte# 0.71 X10^3/uL; Monocyte% 4.6 % (0-10); NRBC Flagged by Analyzer 0 % (0-5); Neutrophil # 13.33 X10^3/uL (2.7-7.7); Neutrophil % 86.5 % (47-70); Platelet Count 261 K/mm3 (150-450); RBC Distribution Width CV 15.4 % (11.6-14.6); RBC Distribution Width SD 48.6 fl (35.1-43.9); Red Blood Count 2.75 M/mm3 (4.2-5.4); White Blood Count 15.4 K/mm3 (4.4-11.0)
--- NOTE | 2021-09-06 10:25 | PCM.PN.HOSP ---
Subjective Subjective Breathing okay and continues to deny any chest pain or lightheadedness. She is having some bloating and has not had a bowel movement in several days. Objective Data Objective Data Vital Signs: Vital Signs Temp Pulse Resp BP Pulse Ox 97.6 F L 68 18 158/91 H 98 09/06/21 08:57 09/06/21 08:57 09/06/21 08:57 09/06/21 08:57 09/06/21 08:57 Oxygen Flow Rate (L/min) 2 Oxygen Delivery Method Room Air Weight: 217 lb 9.54 oz Body Mass Index (BMI) 31.8 Intake & Output: Intake and Output for Last 24 Hours 09/05/21 09/06/21 09/07/21 03:59 03:59 03:59 Intake Total 4480.83 / 4480.83 4813.75 / 4813.75 865.42 / 865.42 Output Total 800 / 800 Balance 3680.83 / 3680.83 4813.75 / 4813.75 865.42 / 865.42 Medical Nutrition Assessment Dietitian: Malnutrition Criteria Met Start: 09/02/21 12:33 Freq: Status: Active Protocol: Document 09/02/21 12:33 RMA (Rec: 09/02/21 12:33 RMA [id number]) Nutrition Malnutrition Evidence of Malnutrition Exists Yes Malnutrition (severe): Chronic Evidenced By Suboptimal Energy Intake ( Moderate),Weight Loss (Severe) Clinical Problem Chronic Disease or Condition Related Malnutrition Etiology Severe protein/calorie malnutrition in the context of chronic disease conditions related to inadequate oral intake and ongoing poor appetite Signs/Symptoms as evidenced by~9% wt loss x past 1-2 months and inadequate oral intake meeting less than 50-75% estimated nutrition needs. Status Active Problem Recommendation Dietitian Recommendations/Changes Will change diet to 2000 calorie/consistent carbohydrate; sodium-restricted; protein- restricted due to CKD stage4. Will defer ONS due to CKD stage4. Adjust diet as needed to optimize nutrition within parameters of diet restrictions. Lab / Micro Data Result Diagrams: 09/06/21 09:03 09/05/21 05:48 Labs: Laboratory Results - last 24 hr 09/05/21 12:14: POC Glucose 209 H 09/05/21 14:25: Vancomycin Trough 19.2 H 09/05/21 17:17: POC Glucose 202 H 09/05/21 21:46: POC Glucose 238 H 09/06/21 08:40: POC Glucose 116 H 09/06/21 09:03: WBC 15.4 H, RBC 2.75 L, Hgb 7.3 L, Hct 23.8 L, MCV 86.5, MCH 26.5 L, MCHC 30.7 L, RDW Std Deviation 48.6 H, RDW Coeff of Fior 15.4 H, Plt Count 261, MPV 12.0, Immature Gran % (Auto) 2.500 H, Neut % (Auto) 86.5 H, Lymph % (Auto) 6.2 L, [place] % (Auto) 4.6, Eos % (Auto) 0.1, Baso % (Auto) 0.1, Absolute Neuts (auto) 13.3 H, Absolute Lymphs (auto) 0.95, Nucleated RBC % 0 Micro: Microbiology 09/01/21 14:30 Blood Culture (Wb) - Anticubital Right Bacteria Detection (PCR) - Final Staphylococcus aureus 09/01/21 14:30 Blood Culture (Wb) - Anticubital Right Blood Culture - Final Staphylococcus aureus Enterobacter cloacae complex Proteus mirabilis 09/02/21 14:30 Blood Culture (Wb) - Right Hand Blood Culture - Preliminary GNR Poss Pseudomonas sp 09/02/21 10:40 Wound - Left Foot Gram Stain - Final 09/02/21 10:40 Wound - Left Foot Wound Culture - Final Staphylococcus aureus Enterobacter cloacae complex Pseudomonas aeroginosa 09/02/21 10:40 Wound - Right Foot Gram Stain - Final 09/02/21 10:40 Wound - Right Foot Wound Culture - Final Staphylococcus aureus Corynebacterium striatum Pseudomonas aeroginosa Klebsiella oxytoca Enterobacter cloacae complex 09/03/21 02:40 Blood Culture (Wb) - Anticubital Right Blood Culture - Preliminary Staphylococcus aureus 09/01/21 14:30 Blood Culture (Wb) - Anticubital Left Blood Culture - Final Staphylococcus aureus Gram negative elinor 09/03/21 00:48 Stool Stool Occult Blood (MIKE) - Final Occult Blood Positive 09/01/21 19:31 Mucosa - Nasopharyngeal Respiratory Panel (PCR) - Final 09/01/21 16:44 Urine Catheter - Catheter Legionella Antigen - Final 11/23/21 16:44 Urine Catheter - Catheter Streptococcus pneumoniae Antigen (M - Final Physical Exam Narrative Const alert, oriented x3 and no apparent distress General Appearance: cooperative HEENT normocephalic and moist oral mucous membranes Eyes PERRL, EOMs intact bilaterally and conjunctivae normal Neck supple and no JVD Resp normal respiratory effort, no retractions and no use of accessory muscles Auscultation: diminished lung sounds; Negative for crackles, rales, rhonchi or wheezes Cardio regular rate, regular rhythm, S1 normal heart sound, S2 normal heart sound and no murmurs GI soft to palpation, non-tender and non-distended; Negative for hepatosplenomegaly Extremity no clubbing, cyanosis or edema Skin no rashes or lesions noted Skin Narrative: Right lower extremity dressing intact Neuro no focal motor deficits and no sensory deficits noted Psych affect normal Appearance: appropriate Assessment & Plan Assessment/Plan (1) COVID-19: (2) Acute hypoxemic respiratory failure due to COVID-19: PLAN: 1. Acute metabolic encephalopathy secondary to acute hypoxic respiratory failure from COVID-19/diabetic foot infection with MSSA bacteremia ?Her acute respiratory failure appears to have resolved and she is now maintaining her oxygen saturations on room air ?Antibiotics were changed, unlikely that she has a pneumonia given her diabetic foot ulcer as a source for her infection and her white count ?Continue with Decadron, her renal function precludes remdesivir, will need to be aggressive in adjusting insulin ?Continue vancomycin and cefepime. Echo without any signs of vegetations, EF was normal no wall motion abnormality ?Repeat blood cultures on 09/02/2021 and 09/03/2021 have come back positive, repeat blood culture today ?Encephalopathy has resolved as has acute hypoxic respiratory failure ?Wound cultures with Pseudomonas, Enterobacter, Klebsiella all of which are sensitive to cefepime 2. Elevated troponin/CAD with ischemic cardiomyopathy/HTN/HLD ?Her elevated troponin is up to 1873 and she started on a heparin drip, her troponins have trended downward therefore her heparin drip has been discontinued given the drop in her hemoglobin ?Continue with aspirin and Plavix ?Given her renal function cannot use an MYLA or an ARB, blood pressure is still elevated will transition to Coreg twice daily dosing ?Echo with an EF of 55% with no wall motion abnormality, PA pressure is 36 mmHg 3. DM2/diabetic foot ulcer/CKD 4 with FELI ?Continue with aggressive insulin, will hold her oral regimen ?Accu-Cheks AC at bedtime with sliding scale insulin ?We will make adjustments as necessary given her Decadron ?Appreciate adjustments on antibiotics by ID ?Baseline creatinine is around 1.8 renal function peaked at 2.9, will continue to monitor and trending downward continue with IV fluid 4. Anxiety/depression/restless leg syndrome ?Stable ?Continue with her home medications 5. GI bleed/acute on chronic anemia ?Unsure as to etiology, can start a PPI ?Discontinued the heparin drip, her hemoglobin has basically been all over the place, she has not received any transfusions while here and she did have an improvement from 7.1 to 8.1 today she is 7.3. Given her non-STEMI and the fact that her hemoglobin stayed down to 7.3, will transfuse 1 unit DVT: SCDs Charges/Coding Visit Charges Inpatient E&M: 98135 Subs Hosp L2
[2021-09-06 10:57] LABS: Anion Gap 8 (5-15); BUN 61 mg/dL (7-18); BUN/Creat Ratio 34.9 RATIO (10-20); Calcium,Total 8.7 mg/dL (8.5-10.1); Chloride 114 mmol/L (98-107); Creatinine, Serum 1.75 mg/dL (0.55-1.02); EST Glomerular Filtration Rate 32 mL/min (>60); Est Glom Filt Rate - Afr Amer 39 mL/min (>60); Glucose 109 mg/dL (74-106); Potassium 4.7 mmol/L (3.5-5.1); Sodium Level 140 mmol/L (136-145)
[2021-09-06] MEDS: Insulin Lispro 100 UNIT/ML INSULN.PEN SC ×3 (12:47→21:56)
[2021-09-06 12:55] LABS: Bedside Glucose 166 mg/dL (70-110)
[2021-09-06] MEDS: 0.9% Saline Lock 10 ML Syringe IV ×2 (13:23→15:32)
[2021-09-06] MEDS: hydrALAZINE 20 MG/ML Vial 10 MG IV (13:23)
[2021-09-06] MEDS: DiphenhydrAMINE 25 MG Capsule PO (14:36)
[2021-09-06 17:56] LABS: Bedside Glucose 187 mg/dL (70-110)
[2021-09-06] MEDS: MELATONIN 3 MG TABLET PO (21:38)
[2021-09-06] MEDS: cycloBENZAPRine HCl 5 MG TABLET PO (21:38)
--- NOTE | 2021-09-06 21:45 | EKG12_ITS ---
Test Reason : CP Blood Pressure : / mmHG Vent. Rate : 086 BPM Atrial Rate : 086 BPM P-R Int : 156 ms QRS Dur : 088 ms QT Int : 364 ms P-R-T Axes : 061 024 009 degrees QTc Int : 435 ms Normal sinus rhythm Normal ECG When compared with ECG of 02-SEP-2021 13:44, Nonspecific T wave abnormality now evident in Inferior leads Confirmed by OTTO DELVALLE, DOMINIQUE ([id number]), editor greeting card HARINI PHAM ([id number]) on 09/08/2021 9:24:09 AM Referred By: DR MAK Confirmed By:DOMINIQUE MENJIVAR MD
[2021-09-06 22:25] LABS: Bedside Glucose 203 mg/dL (70-110)
[2021-09-07] VITALS (9 sets, daily range): BP systolic 145–170; BP diastolic 78–91; PULSE 73–96; RESP 16–18; TEMP 36.5–36.8; O2SAT 97–98
[2021-09-07] MEDS: 0.9% Normal Saline 1,000 ML 125 ML IV ×3 (03:48→20:38)
[2021-09-07 06:51] LABS: Bedside Glucose 52 mg/dL (70-110)
--- NOTE | 2021-09-07 06:53 | PCM.PROGNOTE ---
Subjective Subjective This 56-year-old female seen bedside for bilateral chronic foot ulcers with bacteremia, multiple comorbidities, and current symptomatic Covid. She denies fevers chills nausea vomiting. She reports continued fatigue and difficulty breathing. Her foot pain is controlled it is noted she has neuropathy. She complains of continued bloating this morning. Objective Data Objective Data Vital Signs: Vital Signs Temp Pulse Resp BP Pulse Ox 98.2 F 73 18 145/78 H 98 09/07/21 02:56 09/07/21 03:00 09/07/21 02:56 09/07/21 02:56 09/07/21 02:56 Oxygen Flow Rate (L/min) 2 Oxygen Delivery Method Room Air Weight: 98.9 kg Body Mass Index (BMI) 31.8 Intake & Output: Intake and Output for Last 24 Hours 09/05/21 09/06/21 09/07/21 23:59 23:59 23:59 Intake Total 4813.75 / 4813.75 3720.42 / 3720.42 1000 / 1000 Output Total 800 / 800 Balance 4013.75 / 4013.75 3720.42 / 3720.42 1000 / 1000 Medical Nutrition Assessment Dietitian: Malnutrition Criteria Met Start: 09/02/21 12:33 Freq: Status: Active Protocol: Document 09/02/21 12:33 RMA (Rec: 09/02/21 12:33 RMA [id number]) Nutrition Malnutrition Evidence of Malnutrition Exists Yes Malnutrition (severe): Chronic Evidenced By Suboptimal Energy Intake ( Moderate),Weight Loss (Severe) Clinical Problem Chronic Disease or Condition Related Malnutrition Etiology Severe protein/calorie malnutrition in the context of chronic disease conditions related to inadequate oral intake and ongoing poor appetite Signs/Symptoms as evidenced by~9% wt loss x past 1-2 months and inadequate oral intake meeting less than 50-75% estimated nutrition needs. Status Active Problem Recommendation Dietitian Recommendations/Changes Will change diet to 2000 calorie/consistent carbohydrate; sodium-restricted; protein- restricted due to CKD stage4. Will defer ONS due to CKD stage4. Adjust diet as needed to optimize nutrition within parameters of diet restrictions. Lab / Micro Data Result Diagrams: 09/07/21 06:15 09/06/21 09:03 Labs: Laboratory Results - last 24 hr 09/06/21 08:40: POC Glucose 116 H 09/06/21 09:03: WBC 15.4 H, RBC 2.75 L, Hgb 7.3 L, Hct 23.8 L, MCV 86.5, MCH 26.5 L, MCHC 30.7 L, RDW Std Deviation 48.6 H, RDW Coeff of Fior 15.4 H, Plt Count 261, MPV 12.0, Immature Gran % (Auto) 2.500 H, Neut % (Auto) 86.5 H, Lymph % (Auto) 6.2 L, [place] % (Auto) 4.6, Eos % (Auto) 0.1, Baso % (Auto) 0.1, Absolute Neuts (auto) 13.3 H, Absolute Lymphs (auto) 0.95, Nucleated RBC % 0 09/06/21 09:03: Sodium 140, Potassium 4.7, Chloride 114 H, Carbon Dioxide 18.0 L, Anion Gap 8, BUN 61 H, Creatinine 1.75 H, Estim Creat Clear Calc 33.60, Est GFR (MDRD) Af Amer 39 L, Est GFR (MDRD) Non-Af 32 L, BUN/Creatinine Ratio 34.9 H, Glucose 109 H, Calcium 8.7 09/06/21 11:12: Blood Type O POSITIVE, Antibody Screen NEGATIVE, Crossmatch See Detail 09/06/21 12:46: POC Glucose 166 H 09/06/21 17:41: POC Glucose 187 H 09/06/21 21:35: POC Glucose 203 H 09/07/21 06:40: POC Glucose 52 L Micro: Microbiology 09/04/21 09:50 Blood Culture (Wb) - Anticubital Right Blood Culture - Preliminary 09/01/21 14:30 Blood Culture (Wb) - Anticubital Right Bacteria Detection (PCR) - Final Staphylococcus aureus 09/01/21 14:30 Blood Culture (Wb) - Anticubital Right Blood Culture - Final Staphylococcus aureus Enterobacter cloacae complex Proteus mirabilis 09/02/21 14:30 Blood Culture (Wb) - Right Hand Blood Culture - Preliminary GNR Poss Pseudomonas sp 09/02/21 10:40 Wound - Left Foot Gram Stain - Final 09/02/21 10:40 Wound - Left Foot Wound Culture - Final Staphylococcus aureus Enterobacter cloacae complex Pseudomonas aeroginosa 09/02/21 10:40 Wound - Right Foot Gram Stain - Final 09/02/21 10:40 Wound - Right Foot Wound Culture - Final Staphylococcus aureus Corynebacterium striatum Pseudomonas aeroginosa Klebsiella oxytoca Enterobacter cloacae complex 09/03/21 02:40 Blood Culture (Wb) - Anticubital Right Blood Culture - Preliminary Staphylococcus aureus 09/01/21 14:30 Blood Culture (Wb) - Anticubital Left Blood Culture - Final Staphylococcus aureus Gram negative elinor 09/03/21 00:48 Stool Stool Occult Blood (MIKE) - Final Occult Blood Positive 09/01/21 19:31 Mucosa - Nasopharyngeal Respiratory Panel (PCR) - Final 09/01/21 16:44 Urine Catheter - Catheter Legionella Antigen - Final 09/01/21 16:44 Urine Catheter - Catheter Streptococcus pneumoniae Antigen (M - Final Physical Exam Narrative General Skin Exam: atrophy and dry skin; Negative for ecchymosis, erythema, eschar, or odor. no purulence, no streaking Wound Narrative: plantar left foot ulceration. Predebridement 3.1 x 2.0 x 0.9 cm and post debridement 3.3 x 2.3 x 1 cm granular base. No exposed tendon or probe to bone. No maceration noted. Moderate periwound callus tissue noted. There is no erythema or edema or malodor or purulence or other suggestion signs of infection. Serosanguineous drainage noted. Plantar right foot ulceration. Predebridement 2.6 x 1.9 x 0.5 cm and post debridement 2.8 x 2.1 x 0.6 cm granular base with new proximal tendon exposure at distal margin with undermining of approximately 0.9 cm at the 11 o'clock position. Tendon debridement excisional area measured 1 cm x 1.3 cm. There is no probe to bone. No maceration noted. Moderate periwound callus tissue noted. There is no erythema or malodor or purulence. serosangenous drainage noted Amputations noted to bilateral fifth rays. Charcot foot deformity noted bilaterally. No gross laxity or crepitus with manipulation. Negative calf tenderness negative Jaswinder and Nuñez sign. DP and PT are diminished bilaterally sensory Exam: extremities light-touch: decreased consistent with neuropathic status Const alert and oriented x3 Assessment & Plan Assessment/Plan (1) Ulcer of left foot with fat layer exposed: (2) Chronic ulcer of right foot with necrosis of muscle: (3) Charcot's joint of right foot: (4) Charcot's joint of left foot: (5) Delayed wound healing: (6) Bacteremia: (7) Type 2 diabetes mellitus with diabetic polyneuropathy: PLAN: I reviewed and discussed her case today. This patient has Covid and bacteremia with source work-up in process. She has chronic foot ulcers which certainly could be the nidus of infection. There is no purulence or probing to bone or capsule structures bilateral. There is no erythema or streaking. Subcutaneous excisional debridement was performed (left) and tendon excisional debridement was performed (right) as noted after verbal consent with a 10 blade scalpel and forceps. Pressure was applied to maintain hemostasis. She tolerated this well. Local anesthetic was not required due to her neuropathic status. Infection management: The wounds were initially cultured upon arrival: Staph aureus, corynebacterium stratum, Pseudomonas aeruginosa, Klebsiella oxytoca, Enterobacter cloacae. Blood cultures positive staph aureus and gram-negative elinor. Infectious diseases management is noted and appreciated. She continues on IV cefepime and vancomycin. Foot x-rays upon arrival did not demonstrate any new acute osseous destruction, acute Charcot changes, soft tissue emphysema or foreign body. There is prior fifth ray resections noted bilateral. She has a white blood cell count of over 23 now decreased to 14.6. I recommend continuing with antibiotics and wound care. Surgical operating room drainage or debridement is not planned at this time. The following work up and care recommendations were made: Dressing: Change daily with [place] wet-to-dry solution bilateral applied this morning post debridement. Offload: Nonweightbearing bilateral recommended. Toe-touch for transfers only. Use assistive device. Edema: Bilateral [place] wraps. Host factors: She has multiple comorbidities including uncontrolled diabetes (A1C recently decreased to 9.8%) and significant noncompliance. She is at risk for bilateral lower extremity amputations, further systemic illness or even due to her chronic ulcers and recurrent infections. Most recently she has elected to proceed forward with more of a palliative care wound plan in the outpatient setting and now is being treated for her acute status. It is noted she has anemia and a blood transfusion was recommended earlier during this admission. She also has suspected GI bleed. She continues on aspirin and Plavix. Her respiratory failure appears to be resolving. I answered all the patient's questions. The podiatry team will follow her biweekly while in house. Cultures and data will be followed. Please do not hesitate to call if you have any questions. Lavern Edgar DPM, [facility] [phone]
[2021-09-07 06:54] LABS: Absolute Lymphocyte Count 0.82 X10^3/uL (0.83-4.51); Absolute Neutrophil Count 12.4 X10^3/uL (2.0-7.7); Basophil# 0.02 X10^3/uL; Basophil% 0.1 % (0-1); Eosinophil# 0.04 X10^3/uL; Eosinophils% 0.3 % (0-5); Hematocrit 24.8 % (37-47); Hemoglobin 7.9 g/dL (12.0-15.0); Lymphocyte # 0.82 X10^3/ul (0.83-4.51); Lymphocyte % 5.6 % (19-41); Mean Corp Hgb Conc 31.9 g/dL (32-36); Mean Corpuscular Hgb 27.7 pg (27.0-32.0); Mean Platelet Vol. 11.4 fl (6.2-12.0); Monocyte# 0.81 X10^3/uL; Monocyte% 5.6 % (0-10); NRBC Flagged by Analyzer 0.1 % (0-5); Neutrophil # 12.41 X10^3/uL (2.7-7.7); Neutrophil % 85.3 % (47-70); Platelet Count 241 K/mm3 (150-450); RBC Distribution Width CV 15.9 % (11.6-14.6); RBC Distribution Width SD 50.4 fl (35.1-43.9); Red Blood Count 2.85 M/mm3 (4.2-5.4); White Blood Count 14.6 K/mm3 (4.4-11.0)
[2021-09-07 07:10] LABS: Anion Gap 8 (5-15); BUN 60 mg/dL (7-18); Calcium,Total 8.4 mg/dL (8.5-10.1); Chloride 114 mmol/L (98-107); Creatinine, Serum 1.54 mg/dL (0.55-1.02); EST Glomerular Filtration Rate 37 mL/min (>60); Est Glom Filt Rate - Afr Amer 45 mL/min (>60); Estimated Creatinine Clearance 38.19 ml/min; Glucose 62 mg/dL (74-106); Potassium 4.7 mmol/L (3.5-5.1); Sodium Level 139 mmol/L (136-145)
[2021-09-07] MEDS: Aspirin 81 MG TAB.CHEW PO (08:16)
[2021-09-07] MEDS: Isosorbide Mononitrate 30 MG Tablet PO (08:17)
[2021-09-07] MEDS: Clopidogrel Bisulfate 75 MG Tablet PO (08:17)
[2021-09-07] MEDS: Gabapentin 300 MG Capsule PO ×3 (08:17→17:57)
[2021-09-07] MEDS: Carvedilol 6.25 MG Tablet PO ×2 (08:18→20:47)
[2021-09-07] MEDS: Paroxetine 20 MG Tablet PO (08:18)
[2021-09-07] MEDS: dexAMETHasone 2 MG TABLET 6 MG PO (08:18)
[2021-09-07] MEDS: Pramipexole Di-HCl 1 MG Tablet 1.5 MG PO ×2 (08:18→20:47)
[2021-09-07] MEDS: Docusate Sodium 100 MG Capsule PO ×2 (08:18→20:47)
[2021-09-07] MEDS: buPROPion (XL) 150 MG TABLET.XL PO (08:18)
[2021-09-07] MEDS: Iron Polysaccharide Complex 150 MG CAPSULE PO (08:18)
[2021-09-07] MEDS: Senna Tablet 2 TABLET PO (08:19)
[2021-09-07] MEDS: Polyethylene Glycol 3350 17 GM PACKET PO ×2 (08:19→20:51)
[2021-09-07] MEDS: DAKIN'S SOL HALF STRENGTH (=0.25%) 1 APPLIC TOPICAL (08:22)
[2021-09-07 09:20] LABS: Bedside Glucose 86 mg/dL (70-110)
--- NOTE | 2021-09-07 11:54 | PN.HOSP_ITS ---
Subjective Subjective Patient is a 56-year-old lady with multiple comorbidities who presented with a 5-day history of progressive generalized fatigue with increasing congestion and sore throat. Was seen and evaluated in the ED tested positive for Covid discharged home on Decadron presented back on 09/01/2021 with worsening symptoms Objective Data Objective Data Vital Signs: Vital Signs Temp Pulse Resp BP Pulse Ox 97.7 F L 79 18 160/91 H 97 09/07/21 08:10 09/07/21 08:10 09/07/21 08:10 09/07/21 08:10 09/07/21 08:10 Oxygen Flow Rate (L/min) 2 Oxygen Delivery Method Room Air Weight: 98.9 kg Body Mass Index (BMI) 31.8 Intake & Output: Intake and Output for Last 24 Hours 09/05/21 09/06/21 09/07/21 23:59 23:59 23:59 Intake Total 4813.75 / 4813.75 3720.42 / 3720.42 2109 Output Total 800 / 800 Balance 4013.75 / 4013.75 3720.42 / 3720.42 2109 Medical Nutrition Assessment Dietitian: Malnutrition Criteria Met Start: 09/02/21 12:33 Freq: Status: Active Protocol: Document 09/02/21 12:33 RMA (Rec: 09/02/21 12:33 RMA [id number]) Nutrition Malnutrition Evidence of Malnutrition Exists Yes Malnutrition (severe): Chronic Evidenced By Suboptimal Energy Intake ( Moderate),Weight Loss (Severe) Clinical Problem Chronic Disease or Condition Related Malnutrition Etiology Severe protein/calorie malnutrition in the context of chronic disease conditions related to inadequate oral intake and ongoing poor appetite Signs/Symptoms as evidenced by~9% wt loss x past 1-2 months and inadequate oral intake meeting less than 50-75% estimated nutrition needs. Status Active Problem Recommendation Dietitian Recommendations/Changes Will change diet to 2000 calorie/consistent carbohydrate; sodium-restricted; protein- restricted due to CKD stage4. Will defer ONS due to CKD stage4. Adjust diet as needed to optimize nutrition within parameters of diet restrictions. Lab / Micro Data Result Diagrams: 09/07/21 06:15 09/07/21 06:15 Labs: Laboratory Results - last 24 hr 09/06/21 11:12: Blood Type O POSITIVE, Antibody Screen NEGATIVE, Crossmatch See Detail 09/06/21 12:46: POC Glucose 166 H 09/06/21 17:41: POC Glucose 187 H 09/06/21 21:35: POC Glucose 203 H 09/07/21 06:15: WBC 14.6 H, RBC 2.85 L, Hgb 7.9 L, Hct 24.8 L, MCV 87.0, MCH 27.7, MCHC 31.9 L, RDW Std Deviation 50.4 H, RDW Coeff of Fior 15.9 H, Plt Count 241, MPV 11.4, Immature Gran % (Auto) 3.100 H, Neut % (Auto) 85.3 H, Lymph % (Auto) 5.6 L, [place] % (Auto) 5.6, Eos % (Auto) 0.3, Baso % (Auto) 0.1, Absolute Neuts (auto) 12.4 H, Absolute Lymphs (auto) 0.82 L, Nucleated RBC % 0.1 09/07/21 06:15: Sodium 139, Potassium 4.7, Chloride 114 H, Carbon Dioxide 17.0 L , Anion Gap 8, BUN 60 H, Creatinine 1.54 H, Estim Creat Clear Calc 38.19, Est GFR (MDRD) Af Amer 45 L, Est GFR (MDRD) Non-Af 37 L, BUN/Creatinine Ratio 39.0 H , Glucose 62 L, Calcium 8.4 L 09/07/21 06:40: POC Glucose 52 L 09/07/21 08:11: POC Glucose 86 Micro: Microbiology 09/04/21 09:50 Blood Culture (Wb) - Anticubital Right Blood Culture - Preliminary Staphylococcus aureus 09/02/21 14:30 Blood Culture (Wb) - Right Hand Blood Culture - Preliminary Pseudomonas aeroginosa 09/05/21 09:31 Blood Culture (Wb) - Right Hand Blood Culture - Preliminary No growth in 48 hours. 09/01/21 14:30 Blood Culture (Wb) - Anticubital Right Bacteria Detection (PCR) - Final Staphylococcus aureus 09/01/21 14:30 Blood Culture (Wb) - Anticubital Right Blood Culture - Final Staphylococcus aureus Enterobacter cloacae complex Proteus mirabilis 09/02/21 10:40 Wound - Left Foot Gram Stain - Final 09/02/21 10:40 Wound - Left Foot Wound Culture - Final Staphylococcus aureus Enterobacter cloacae complex Pseudomonas aeroginosa 09/02/21 10:40 Wound - Right Foot Gram Stain - Final 09/02/21 10:40 Wound - Right Foot Wound Culture - Final Staphylococcus aureus Corynebacterium striatum Pseudomonas aeroginosa Klebsiella oxytoca Enterobacter cloacae complex 09/03/21 02:40 Blood Culture (Wb) - Anticubital Right Blood Culture - Preliminary Staphylococcus aureus 09/01/21 14:30 Blood Culture (Wb) - Anticubital Left Blood Culture - Final Staphylococcus aureus Gram negative elinor 09/03/21 00:48 Stool Stool Occult Blood (MIKE) - Final Occult Blood Positive 09/01/21 19:31 Mucosa - Nasopharyngeal Respiratory Panel (PCR) - Final 09/01/21 16:44 Urine Catheter - Catheter Legionella Antigen - Final 09/01/21 16:44 Urine Catheter - Catheter Streptococcus pneumoniae Antigen (M - Final Physical Exam Narrative GENERAL: cooperative HEENT: Atraumatic; EYES; Anicteric, Normal Conjunctiva NECK; supple, normal thyroid, RESPIRATORY: Diminished to auscultation CARDIOVASCULAR: Regular S1 S2, GI: soft, normoactive bowel sounds, : No Renal angle tenderness; EXTREMITIES: Both feet in surgical dressing NEURO: Awake; no lateralizing signs. SKIN: No Rash PSYCH; Flat affect Assessment & Plan Assessment/Plan (1) COVID-19: (2) Acute hypoxemic respiratory failure due to COVID-19: PLAN: Patient is a 56-year-old lady with multiple comorbidities who presented with a 5-day history of progressive generalized fatigue with increasing congestion and sore throat. Was seen and evaluated in the ED tested positive for Covid discharged home on Decadron presented back on 09/01/2021 with worsening symptoms 1. Acute hypoxic respiratory failure ?Secondary to COVID-19 pneumonia patient was managed with Decadron. Was deemed not a candidate for remdesivir in view of impaired kidney function. Was placed on oxygen which has since been weaned off 2. Diabetic foot ulcer ?Wound cultures grew Pseudomonas, Enterobacter and Klebsiella sensitive to cefepime. Consultation placed to podiatry note and recommendations reviewed. Patient underwent Subcutaneous excisional debridement was performed (left) and t endon excisional debridement on 09/07/[address] Edgar 3. Acute metabolic encephalopathy ?Secondary to patient underlying infection as well as COVID-19. Encephalopathy has since resolved 4. MSSA bacteremia ?Patient remains on cefepime consult placed to infectious disease 5. Elevated troponin ?Secondary to acute non-STEMI type II from demand ischemia from above. Patient has been managed per protocol with antiplatelets as well as statin therapy and heparin heparin was discontinued due to significant drop in hemoglobin level. 6. Acute on chronic kidney disease stage III ?Patient presented with impaired kidney function. Creatinine on admission was 2.58 jesús to 2.9 has since improved with rehydration and is currently 1.54 as of 09/07/2021 7. Hypertension - Blood pressure controlled, home medications continued with dose adjustment as needed 8. Coronary artery disease -With PCI to mid LAD lesion with a DARA on 01/01/21. Patient is currently on dual antiplatelet therapy and high intensity statin 9. Dyslipidemia -Patient is on statin therapy, continued at home dose 10. Anemia - Secondary to chronic disorder monitoring H&H. Patient was transfused 1 unit PRBC on 09/06/2021 11. Depression with anxiety ?Patient is on SSRI 12. Diabetes mellitus type II ?With complications including Charcot foot as well as diabetic foot ulcers. Patient is onlong acting insulin, Accu-Cheks a.c. and at bedtime and covered with sliding scale insulin 13.DVT prophylaxis ?SCDs for now Charges/Coding Visit Charges Inpatient E&M: 80005 Subs Hosp L3
--- NOTE | 2021-09-07 12:39 | CASEMGMT ---
Addendum entered by Erika Mccann 09/07/21 16:15: Call from [facility] and they are unable to accept pt. Call from Serenity at [facility] stating pt is covered at 100% and she would like updated on [facility] once obtained. [facility]'s contact: [phone] CM to follow. Mary Ann IGLESIAS CM Addendum entered by Erika Mccann 09/07/21 14:40: Pt states no preference for C agency and referral faxed to [facility], [facility], and [facility] at this time. CM to follow. Mary Ann IGLESIAS CM Addendum entered by Erika Mccann 09/07/21 14:00: Call back from Mikayla at [facility] and she states they cannot accept pt at this time as they don't feel they will be able to 'meet her needs.' CM to go over other in-network [facility] companies with pt after she talks to family. Mary Ann IGLESIAS CM Original Note: Per Dr. Tello, pt to go home with IV antibx Cefepime 2g every 12 hours IV and script provided to this KELSIE IRELAND. Pt states would prefer to go home but is unsure about IV antibx on her own as she had a family member living with her the last time. Pt states she should be able to get her childrens assist with iv antibx but is willing to go to TCU if necessary. This RN CM advised pt that she cannot go to TCU as she is COVID +, voices understanding and declines to go anywhere else at this time. Pt states would like [facility] and is agreeable to [facility]. Referral called to [facility] and faxed to [facility] at this time. CM to f/u with pt later regarding children assisting. Mary Ann IGLESIAS CM
--- NOTE | 2021-09-07 13:06 | PCM.PN.ID ---
Physical Exam Narrative Feeling ok, no fever, no n/v/d. Const alert and no apparent distress General Appearance: cooperative Resp normal air movement and clear to auscultation bilaterally Cardio regular rate and regular rhythm GI normal to inspection, nondistended, normoactive bowel sounds Skin Skin Narrative: feet wrapped ID ID: Route of nutrition/ use of supplements: [] Nutritional Intake: [] IV Site: [] Tirado Catheter: [] Assessment & Plan Assessment/Plan (1) COVID-19: (2) Bacteremia: PLAN: mssa, proteus, and enterobacter bacteremia, suspect foot infection as source. Neg TTE, will repeat bcx. Splinter hemorrhage on L 5th finger. Wound cxs with PsA, klebs, mssa, enterobacter, corynebacter. Will stop vanc. Will order picc and 6 weeks iv cefepime, stop date 10/13/21. Weekly labs. ID followup in 2 weeks. covid with hypoxia, vaccinated, sx started around 08/22, isolate until 09/11/21. Will stop dex. Will follow
[2021-09-07] MEDS: 0.9% Saline Lock 10 ML Syringe IV (15:30)
[2021-09-07] MEDS: hydrALAZINE 20 MG/ML Vial 10 MG IV ×2 (15:33→23:27)
[2021-09-07 15:51] LABS: Bedside Glucose 181 mg/dL (70-110)
[2021-09-07] MEDS: Insulin Lispro 100 UNIT/ML INSULN.PEN SC ×2 (17:58→21:17)
[2021-09-07 18:05] LABS: Bedside Glucose 179 mg/dL (70-110)
--- NOTE | 2021-09-07 18:45 | NURSING ---
Notify Dr. Edgar if bleeding persists in R foot. May need to come in and do gel foam dressing. foot is compressed and elevated currently.
[2021-09-07] MEDS: cycloBENZAPRine HCl 5 MG TABLET PO (20:49)
[2021-09-07] MEDS: oxyCODONE 5 MG Tablet PO (21:12)
[2021-09-07 21:31] LABS: Bedside Glucose 258 mg/dL (70-110)
[2021-09-07 23:43] LABS: Hematocrit 24.8 % (37-47)
[2021-09-08] VITALS (9 sets, daily range): BP systolic 142–161; BP diastolic 81–87; PULSE 81–89; RESP 16–18; TEMP 36.5–36.8; O2SAT 98–100
[2021-09-08] MEDS: oxyCODONE 5 MG Tablet PO ×3 (03:08→17:37)
[2021-09-08 06:51] LABS: Bedside Glucose 103 mg/dL (70-110)
[2021-09-08 07:11] LABS: Bedside Glucose 98 mg/dL (70-110)
[2021-09-08 07:11] LABS: Bedside Glucose 106 mg/dL (70-110)
[2021-09-08] MEDS: DAKIN'S SOL HALF STRENGTH (=0.25%) 1 APPLIC TOPICAL (08:33)
[2021-09-08] MEDS: 0.9% Normal Saline 1,000 ML 125 ML IV (10:19)
[2021-09-08] MEDS: Aspirin 81 MG TAB.CHEW PO (10:20)
[2021-09-08] MEDS: Gabapentin 300 MG Capsule PO ×3 (10:21→17:36)
[2021-09-08] MEDS: Clopidogrel Bisulfate 75 MG Tablet PO (10:21)
[2021-09-08] MEDS: Docusate Sodium 100 MG Capsule PO (10:21)
[2021-09-08] MEDS: Carvedilol 6.25 MG Tablet PO (10:21)
[2021-09-08] MEDS: buPROPion (XL) 150 MG TABLET.XL PO (10:22)
[2021-09-08] MEDS: Isosorbide Mononitrate 30 MG Tablet PO (10:22)
[2021-09-08] MEDS: Iron Polysaccharide Complex 150 MG CAPSULE PO (10:22)
[2021-09-08] MEDS: dexAMETHasone 2 MG TABLET 6 MG PO (10:22)
[2021-09-08] MEDS: Senna Tablet 2 TABLET PO (10:22)
[2021-09-08] MEDS: Paroxetine 20 MG Tablet PO (10:23)
[2021-09-08] MEDS: Polyethylene Glycol 3350 17 GM PACKET PO (10:23)
--- NOTE | 2021-09-08 10:34 | CASEMGMT ---
Addendum entered by Erika Mccann 09/08/21 12:44: Pt updated on all and states will call daughter to notify her of a 2000 warp picker time tonight. Pt voices no further questions/concerns/needs. Mary Anne IGLESIAS updated on all, voices understanding. Mary Ann IGLESIAS CM Addendum entered by Erika Mccann 09/08/21 11:35: Call back from Noel at [facility] and he states they can accept pt but cannot do SOC till tomorrow am. Per [facility] pharmacist, the earliest that pt could have next dose her is 1800 but 1900 would be better. Rik, PCU charge, updated and plan is for pt to get dose prior to discharge at 1900(infusion is 30 minutes) and then pt to be discharged home after infusion. [facility] to go out in the am for 1st morning dose. Pt to be updated. Mary Ann IGLESIAS CM Original Note: This RN CM recieved message from Noel at [facility] and he states they are able to accept pt but he was wondering about infusion company and d/c date. Call back to Noel at [facility] and message left regarding [facility] and plan for d/c today. Pt states her daughter is teachable. Call to Serenity at [facility] to notify of [facility]. CM to follow. Mary Ann IGLESIAS CM
--- NOTE | 2021-09-08 11:10 | PCM.DC ---
Discharge Instructions Diet Discharge Diet: No restrictions Activity Discharge Activity: Return to Normal Activity Weight Bearing Status: Weight bearing as tolerated Dressing / Incision Call your doctor if you observe: Fever of 101 or Higher, Numbness or Tingling, Shortness of breath, Dizziness, Chest pain, Increased palpitations (irregular heartbeat) and Calf discomfort Follow Up Care Please Follow Up With: Primary care provider When: Within the next two weeks. Test Results: Test results from this visit will be discussed in further detail at your follow-up appointment, if applicable. Discharge Plan Admission Admit Date/Time: 09/01/21 16:56 Primary Reason for Your Visit: Shortness of breath Attending Provider: Rodney Yates Primary Care Provider: Raúl Eric Consulting Providers: Kike Tello ; Lavern Edgar Instructions Additional Instructions / Restrictions: Patient is to remain in [place] [id number] [place] until 09/11/21 to complete 10 day isolation. Discharge Orders/Prescriptions Prescriptions: New cefepime 2 gram recon soln 2 g IV Q12H 35 Days Qty: 70 RF: 0 Continued atorvastatin 80 mg tablet 80 mg PO QHS Qty: 90 RF: 3 insulin lispro 100 UNIT/ML insulin pen 20 unit SC TIDCM RF: 0 pramipexole 1 MG tablet 1.5 mg PO BID RF: 0 clopidogrel 75 MG tablet 75 mg PO DAILY Qty: 0 RF: 0 isosorbide mononitrate 30 mg tablet extended release 24 hr 30 mg PO DAILY RF: 0 paroxetine HCl 20 mg tablet 20 mg PO QHS RF: 0 oxycodone 5 mg tablet 5 mg PO BID PRN (Reason: Pain) RF: 0 dexamethasone [Decadron] 6 mg tablet 6 mg PO DAILY Qty: 10 RF: 0 benzonatate 100 mg Capsule 100 mg PO TID PRN PRN (Reason: Cough) RF: 0 cyclobenzaprine 5 mg Tablet 5 mg PO QHS RF: 0 bupropion HCl 150 mg PO.IVFORM DAILY RF: 0 furosemide 40 mg Tablet 40 mg PO DAILY RF: 0 metoprolol succinate 25 mg Tablet Extended Release 24 Hr 25 mg PO BID RF: 0 Lantus Solostar U-100 Insulin 100 unit/mL (3 mL) Insulin Pen 35 unit SUBCUT BID RF: 0 Phenergan-Codeine 1 tsp PO/SL Q6H PRN PRN (Reason: Cough) RF: 0 Referrals / Follow Up: Raúl Eric MD [Primary Care Provider] - Within 2 Weeks Kike Tello MD [STAFF PHYSICIAN] - Within 2 Weeks Disposition Disposition (needs filled in before D/C Order can be placed): Home Health Service
[2021-09-08 11:21] LABS: Absolute Lymphocyte Count 1.24 X10^3/uL (0.83-4.51); Absolute Neutrophil Count 16.8 X10^3/uL (2.0-7.7); Basophil# 0.07 X10^3/uL; Basophil% 0.3 % (0-1); Eosinophil# 0.34 X10^3/uL; Eosinophils% 1.7 % (0-5); Hematocrit 25.3 % (37-47); Lymphocyte # 1.24 X10^3/ul (0.83-4.51); Lymphocyte % 6.1 % (19-41); Mean Corp Hgb Conc 31.6 g/dL (32-36); Mean Corpuscular Hgb 27.5 pg (27.0-32.0); Mean Corpuscular Volume 86.9 fL (81-99); Mean Platelet Vol. 10.4 fl (6.2-12.0); Monocyte# 1.14 X10^3/uL; Monocyte% 5.6 % (0-10); NRBC Flagged by Analyzer 0 % (0-5); Neutrophil # 16.78 X10^3/uL (2.7-7.7); Platelet Count 303 K/mm3 (150-450); RBC Distribution Width CV 16.1 % (11.6-14.6); RBC Distribution Width SD 51.2 fl (35.1-43.9); Red Blood Count 2.91 M/mm3 (4.2-5.4); White Blood Count 20.5 K/mm3 (4.4-11.0)
[2021-09-08 11:44] LABS: ALB/GLOB Ratio 0.4 RATIO (0.9-2.4); AST(SGOT) 18 U/L (15-37); Alanine Aminotransfer ALT/SGPT 41 U/L (13-56); Albumin, Serum 1.5 g/dL (3.2-5.0); Alkaline Phosphatase 173 U/L (45-117); Anion Gap 7 (5-15); BUN 54 mg/dL (7-18); BUN/Creat Ratio 33.5 RATIO (10-20); Calcium,Total 8.4 mg/dL (8.5-10.1); Chloride 117 mmol/L (98-107); Creatinine, Serum 1.61 mg/dL (0.55-1.02); EST Glomerular Filtration Rate 35 mL/min (>60); Est Glom Filt Rate - Afr Amer 43 mL/min (>60); Estimated Creatinine Clearance 36.53 ml/min; Globulin 4.2 g/dL (2.2-4.2); Glucose 109 mg/dL (74-106); Magnesium 1.3 mg/dL (1.6-2.6); Potassium 4.5 mmol/L (3.5-5.1); Protein, Total 5.7 g/dL (6.4-8.2); Sodium Level 142 mmol/L (136-145)
--- NOTE | 2021-09-08 12:23 | PHA.DC.MR ---
Addendum entered and electronically signed by Kira Ba 09/08/21 12:24: Spoke to LOY Serrano regarding new carvedilol ordered. Patient has order for metoprolol succinate at home. Zach will d/c metoprolol. Home Medications atorvastatin 80 mg tablet 80 mg PO QHS #90 tablet 11/30/19 insulin lispro 20 unit SC TIDCM 08/31/20 pramipexole 1.5 mg PO BID 09/12/20 clopidogrel 75 mg PO DAILY #0 tablet 01/01/21 isosorbide mononitrate 30 mg PO DAILY 03/03/21 oxycodone 5 mg PO BID PRN 07/07/21 paroxetine HCl 20 mg PO QHS 07/07/21 dexamethasone [Decadron] 6 mg PO DAILY #10 tab 08/24/21 Lantus Solostar U-100 Insulin 35 unit SUBCUT BID 09/02/21 Phenergan-Codeine 1 tsp PO/SL Q6H PRN PRN 09/02/21 benzonatate 100 mg PO TID PRN PRN 09/02/21 bupropion HCl 150 mg PO.IVFORM DAILY 09/02/21 cyclobenzaprine 5 mg PO QHS 09/02/21 furosemide 40 mg PO DAILY 09/02/21 cefepime 2 g IV Q12H 35 Days #70 ea 09/07/21 carvedilol [Coreg] 6.25 mg PO BID #60 tab 09/08/21 Original Note: Pharmacy Service has performed discharge medication reconciliation for this patient. The patient's discharge medication list was reviewed for discrepancies and discrepancies were resolved. Home Medications atorvastatin 80 mg tablet 80 mg PO QHS #90 tablet 11/30/19 insulin lispro 20 unit SC TIDCM 08/31/20 pramipexole 1.5 mg PO BID 09/12/20 clopidogrel 75 mg PO DAILY #0 tablet 01/01/21 isosorbide mononitrate 30 mg PO DAILY 03/03/21 oxycodone 5 mg PO BID PRN 07/07/21 paroxetine HCl 20 mg PO QHS 07/07/21 dexamethasone [Decadron] 6 mg PO DAILY #10 tab 08/24/21 Lantus Solostar U-100 Insulin 35 unit SUBCUT BID 09/02/21 Phenergan-Codeine 1 tsp PO/SL Q6H PRN PRN 09/02/21 benzonatate 100 mg PO TID PRN PRN 09/02/21 bupropion HCl 150 mg PO.IVFORM DAILY 09/02/21 cyclobenzaprine 5 mg PO QHS 09/02/21 furosemide 40 mg PO DAILY 09/02/21 metoprolol succinate 25 mg PO BID 09/02/21 cefepime 2 g IV Q12H 35 Days #70 ea 09/07/21 carvedilol [Coreg] 6.25 mg PO BID #60 tab 09/08/21
[2021-09-08 13:10] LABS: Bedside Glucose 110 mg/dL (70-110)
[2021-09-08] MEDS: Pramipexole Di-HCl 1 MG Tablet 1.5 MG PO (14:00)
[2021-09-08] MEDS: DiphenhydrAMINE 25 MG Capsule PO (14:00)
--- NOTE | 2021-09-08 14:49 | PCM.DC.SUM ---
Documented by User: Zach GRANADO 09/08/21 14:56 Providers Date of Admission: 09/01/21 Primary Care Physician: Dr. Raúl Eric MD Consultations 09/01/21 18:49 Consult: Onc/Wound/etl developer Routine Comment: wounds to bilateral lower extremities 09/02/21 08:20 Consult: Infectious Disease Routine Consulting Provider: Kike Tello Reason for Consult: Staph bactermemia, unknown source EMERGENT Consult: No MD Notified: Yes Date Notified: 09/02/21 Time Notified: 08:20 Method of Notification: Text 09/02/21 12:42 Consult: Podiatry Routine Consulting Provider: Lavern Edgar Reason for Consult: bilat foot ulcers, MSSA bacteremia EMERGENT Consult: No Notified: Yes Date Notified: 09/02/21 Time Notified: 12:42 Method of Notification: Text 09/07/21 12:21 Consult: Infectious Disease Routine Consulting Provider: Kike Tello Reason for Consult: MSSA bacteremia EMERGENT Consult: No Notified: Yes Date Notified: 09/07/21 Time Notified: 12:32 Method of Notification: Text Reason For Visit: COVID19 ACUTE HYPOXEMIC RESPIRATORY FAILURE Diagnosis Discharge Diagnosis (1) COVID-19: Status: Acute Code(s): U07.1 - COVID-19 (2) Bacteremia: Status: Acute Code(s): R78.81 - Bacteremia Medications at Discharge Home Medications atorvastatin 80 mg tablet 80 mg PO QHS #90 tablet 11/30/19 insulin lispro 20 unit SC TIDCM 08/31/20 pramipexole 1.5 mg PO BID 09/12/20 clopidogrel 75 mg PO DAILY #0 tablet 01/01/21 isosorbide mononitrate 30 mg PO DAILY 03/03/21 oxycodone 5 mg PO BID PRN 07/07/21 paroxetine HCl 20 mg PO QHS 07/07/21 dexamethasone [Decadron] 6 mg PO DAILY #10 tab 08/24/21 Lantus Solostar U-100 Insulin 35 unit SUBCUT BID 09/02/21 Phenergan-Codeine 1 tsp PO/SL Q6H PRN PRN 09/02/21 benzonatate 100 mg PO TID PRN PRN 09/02/21 bupropion HCl 150 mg PO.IVFORM DAILY 09/02/21 cyclobenzaprine 5 mg PO QHS 09/02/21 furosemide 40 mg PO DAILY 09/02/21 cefepime 2 g IV Q12H 35 Days #70 ea 09/07/21 carvedilol [Coreg] 6.25 mg PO BID #60 tab 09/08/21 Hospital Course Summary of Care Provided Minutes Spent on Discharge: 35 Hospital Course: Disposition: Patient discharged home with home health care. 1) Acute hypoxic respiratory failure secondary to COVID-19 infection. Patient was treated on Decadron while admitted. Remdesivir not initiated due to worsening renal function. Respiratory status improved patient is currently satting 90% on room air. 2) Diabetic foot ulcer with MSSA bacteremia ?Wound cultures grew Pseudomonas, Enterobacter and Klebsiella sensitive to cefepime. ID and podiatry consulted, to follow-up within 2 weeks after discharge. Discharged on cefepime. 3) Acute metabolic encephalopathy Secondary to #1, resolved. 4) Elevated troponin Secondary to acute non-STEMI type II from demand ischemia from above. Patient has been managed per protocol with antiplatelets as well as statin therapy and heparin heparin was discontinued due to significant drop in hemoglobin level. 4) Acute on chronic kidney disease stage III Resolved, creatinine at baseline. 5) HTN Continue home BP regimen. 6) CAD Continue home regimen. 7) dyslipidemia Continue statin. 8) depression Continue SSRI. 9) DM2 With Charcot foot and several diabetic ulcers. Continue home insulin regimen. Patient seen by Zach Mistry PA-C, under the supervision of Dr. Yates. Physical Exam Narrative Patient is a 56-year-old female lying in bed, alert and orient x3. Patient reports some abdominal discomfort, but denies development of any new symptoms overnight. Does not appear in acute distress. Const alert, oriented x3 and no apparent distress HEENT normocephalic, head/scalp atraumatic, hearing grossly normal bilaterally and moist oral mucous membranes Eyes PERRL, EOMs intact bilaterally and conjunctivae normal Neck no lymphadenopathy, supple and no JVD Resp normal respiratory effort, no retractions, no use of accessory muscles and clear to auscultation bilaterally Cardio regular rate, regular rhythm, no murmurs and no JVD GI normal to inspection, nondistended, normoactive bowel sounds, soft to palpation and non-tender Extremity normal to inspection, full ROM and no clubbing, cyanosis or edema Skin no rashes or lesions noted, no wounds and skin turgor normal Neuro CN's II-XII intact bilaterally Psych affect normal Medical Records Data Medical Nutrition Assessment Dietitian: Malnutrition Criteria Met Start: 09/02/21 12:33 Freq: Status: Active Protocol: Document 09/07/21 15:21 RMA (Rec: 09/07/21 15:21 RMA [id number]) Nutrition Malnutrition Evidence of Malnutrition Exists Yes Malnutrition (severe): Chronic Evidenced By Suboptimal Energy Intake ( Moderate),Weight Loss (Severe) Clinical Problem Chronic Disease or Condition Related Malnutrition Etiology Severe protein/calorie malnutrition in the context of chronic disease conditions related to inadequate oral intake and ongoing poor appetite Signs/Symptoms as evidenced by~9% wt loss x past 1-2 months and inadequate oral intake meeting less than 50-75% estimated nutrition needs. Status Active Problem Recommendation Dietitian Recommendations/Changes Will continue 2000 calorie/ consistent carbohydrate; sodium-restricted; protein- restricted due to CKD stage4. Will defer ONS due to CKD stage4. Adjust diet as needed to optimize nutrition within parameters of diet restrictions. Weight / BMI Weight Weight: 235 lb 14.314 oz Body Mass Index (BMI) 31.8 ABG / Lab / Microbiology Data Result Diagrams: 09/08/21 11:14 09/08/21 11:14 Laboratory: Laboratory Results - last 24 hr 09/07/21 10:59: POC Glucose 98 09/07/21 11:14: POC Glucose 106 09/07/21 15:25: POC Glucose 181 H 09/07/21 17:56: POC Glucose 179 H 09/07/21 21:14: POC Glucose 258 H 09/07/21 23:30: Hgb 8.0 L, Hct 24.8 L 09/08/21 06:34: POC Glucose 103 09/08/21 11:14: WBC 20.5 H, RBC 2.91 L, Hgb 8.0 L, Hct 25.3 L, MCV 86.9, MCH 27.5, MCHC 31.6 L, RDW Std Deviation 51.2 H, RDW Coeff of Fior 16.1 H, Plt Count 303, MPV 10.4, Immature Gran % (Auto) 4.300 H, Neut % (Auto) 82.0 H, Lymph % (Auto) 6.1 L, [place] % (Auto) 5.6, Eos % (Auto) 1.7, Baso % (Auto) 0.3, Absolute Neuts (auto) 16.8 H, Absolute Lymphs (auto) 1.24, Nucleated RBC % 0 09/08/21 11:14: Sodium 142, Potassium 4.5, Chloride 117 H, Carbon Dioxide 18.0 L, Anion Gap 7, BUN 54 H, Creatinine 1.61 H, Estim Creat Clear Calc 36.53, Est GFR (MDRD) Af Amer 43 L, Est GFR (MDRD) Non-Af 35 L, BUN/Creatinine Ratio 33.5 H, Glucose 109 H, Calcium 8.4 L, Magnesium 1.3 L, Total Bilirubin 0.20, AST 18, ALT 41, Alkaline Phosphatase 173 H, Total Protein 5.7 L, Albumin 1.5 L, Globulin 4.2, Albumin/Globulin Ratio 0.4 L 09/08/21 13:00: POC Glucose 110 Microbiology: Microbiology 09/06/21 09:03 Blood Culture (Wb) - Venous Blood Culture - Preliminary No growth in 48 hours. 09/03/21 02:40 Blood Culture (Wb) - Anticubital Right Blood Culture - Final Staphylococcus aureus 09/02/21 14:30 Blood Culture (Wb) - Right Hand Blood Culture - Final Pseudomonas aeroginosa 09/04/21 09:50 Blood Culture (Wb) - Anticubital Right Blood Culture - Preliminary Staphylococcus aureus 09/05/21 09:31 Blood Culture (Wb) - Right Hand Blood Culture - Preliminary No growth in 48 hours. 09/01/21 14:30 Blood Culture (Wb) - Anticubital Right Bacteria Detection (PCR) - Final Staphylococcus aureus 09/01/21 14:30 Blood Culture (Wb) - Anticubital Right Blood Culture - Final Staphylococcus aureus Enterobacter cloacae complex Proteus mirabilis 09/02/21 10:40 Wound - Left Foot Gram Stain - Final 09/02/21 10:40 Wound - Left Foot Wound Culture - Final Staphylococcus aureus Enterobacter cloacae complex Pseudomonas aeroginosa 09/02/21 10:40 Wound - Right Foot Gram Stain - Final 09/02/21 10:40 Wound - Right Foot Wound Culture - Final Staphylococcus aureus Corynebacterium striatum Pseudomonas aeroginosa Klebsiella oxytoca Enterobacter cloacae complex 09/01/21 14:30 Blood Culture (Wb) - Anticubital Left Blood Culture - Final Staphylococcus aureus Gram negative elinor 09/03/21 00:48 Stool Stool Occult Blood (MIKE) - Final Occult Blood Positive 09/01/21 19:31 Mucosa - Nasopharyngeal Respiratory Panel (PCR) - Final 09/01/21 16:44 Urine Catheter - Catheter Legionella Antigen - Final 09/01/21 16:44 Urine Catheter - Catheter Streptococcus pneumoniae Antigen (M - Final D/C Instructions Discharge Diet: No restrictions Weight Bearing Status: Weight bearing as tolerated Call your doctor if you observe: Fever of 101 or Higher, Numbness or Tingling, Shortness of breath, Dizziness, Chest pain, Increased palpitations (irregular heartbeat) and Calf discomfort Please Follow Up With: Primary care provider When: Within the next two weeks. Meaningful Use Info Meaningful Use Diagnoses (Choose all that apply): None applicable Discharge Plan Admission Admit Date/Time: 09/01/21 16:56 Primary Reason for Your Visit: Shortness of breath Attending Provider: Rodney Yates Primary Care Provider: Raúl Eric Consulting Providers: Kike Tello ; Lavern Edgar Instructions Additional Instructions / Restrictions: Patient Problems: Altered Health Status related to Hospitalization Patient Goals: *Optimal Level of Health *Keep Appointments *Medication Compliance *[facility] to complete 10 day isolation. Discharge Orders/Prescriptions Prescriptions: New cefepime 2 gram recon soln 2 g IV Q12H 35 Days Qty: 70 RF: 0 carvedilol [Coreg] 6.25 mg tablet 6.25 mg PO BID Qty: 60 RF: 0 Continued atorvastatin 80 mg tablet 80 mg PO QHS Qty: 90 RF: 3 insulin lispro 100 UNIT/ML insulin pen 20 unit SC TIDCM RF: 0 pramipexole 1 MG tablet 1.5 mg PO BID RF: 0 clopidogrel 75 MG tablet 75 mg PO DAILY Qty: 0 RF: 0 isosorbide mononitrate 30 mg tablet extended release 24 hr 30 mg PO DAILY RF: 0 paroxetine HCl 20 mg tablet 20 mg PO QHS RF: 0 oxycodone 5 mg tablet 5 mg PO BID PRN (Reason: Pain) RF: 0 dexamethasone [Decadron] 6 mg tablet 6 mg PO DAILY Qty: 10 RF: 0 benzonatate 100 mg Capsule 100 mg PO TID PRN PRN (Reason: Cough) RF: 0 cyclobenzaprine 5 mg Tablet 5 mg PO QHS RF: 0 bupropion HCl 150 mg PO.IVFORM DAILY RF: 0 furosemide 40 mg Tablet 40 mg PO DAILY RF: 0 Lantus Solostar U-100 Insulin 100 unit/mL (3 mL) Insulin Pen 35 unit SUBCUT BID RF: 0 Phenergan-Codeine 1 tsp PO/SL Q6H PRN PRN (Reason: Cough) RF: 0 Discontinued metoprolol succinate 25 mg Tablet Extended Release 24 Hr 25 mg PO BID RF: 0 Referrals / Follow Up: Raúl Eric MD [Primary Care Provider] - Within 2 Weeks (office will call to schedule an appointment) Kike Tello MD [STAFF PHYSICIAN] - 09/16/21 3:00 pm ( will see you at the [facility].) Disposition Disposition (needs filled in before D/C Order can be placed): Home Health Service Documented by User: Dr. Rodney Yates MD 09/08/21 15:00 Providers Date of Admission: 09/01/21 Reason For Visit: COVID19 ACUTE HYPOXEMIC RESPIRATORY FAILURE Medications at Discharge Home Medications atorvastatin 80 mg tablet 80 mg PO QHS #90 tablet 11/30/19 insulin lispro 20 unit SC TIDCM 08/31/20 pramipexole 1.5 mg PO BID 09/12/20 clopidogrel 75 mg PO DAILY #0 tablet 01/01/21 isosorbide mononitrate 30 mg PO DAILY 03/03/21 oxycodone 5 mg PO BID PRN 07/07/21 paroxetine HCl 20 mg PO QHS 07/07/21 dexamethasone [Decadron] 6 mg PO DAILY #10 tab 08/24/21 Lantus Solostar U-100 Insulin 35 unit SUBCUT BID 09/02/21 Phenergan-Codeine 1 tsp PO/SL Q6H PRN PRN 09/02/21 benzonatate 100 mg PO TID PRN PRN 09/02/21 bupropion HCl 150 mg PO.IVFORM DAILY 09/02/21 cyclobenzaprine 5 mg PO QHS 09/02/21 furosemide 40 mg PO DAILY 09/02/21 cefepime 2 g IV Q12H 35 Days #70 ea 09/07/21 carvedilol [Coreg] 6.25 mg PO BID #60 tab 09/08/21 Hospital Course Operations None Summary of Care Provided Hospital Course: This patient was seen in conjunction with Zach Mistry PA-C. I have independently interviewed and examined the patient and reviewed pertinent historical, laboratory, and other data. Please refer to Zach Mistry PA-C's note for details of this patient's presentation, findings, and recommendations. I have reviewed Zach Mistry PA-C's note and concur with documented findings. In brief, patient is a 56-year-old lady with multiple comorbidities admitted with COVID-19 as well as diabetic foot infections admitted to monitored bed for further management Hospital course as documented above ABG / Lab / Microbiology Data Result Diagrams: 09/08/21 11:14 09/08/21 11:14 Discharge Plan Admission Admit Date/Time: 09/01/21 16:56 Primary Reason for Your Visit: Shortness of breath Attending Provider: Rodney Yates Primary Care Provider: Raúl Eric Consulting Providers: Kike Tello ; Lavern Edgar Instructions Additional Instructions / Restrictions: Patient Problems: Altered Health Status related to Hospitalization Patient Goals: *Optimal Level of Health *Keep Appointments *Medication Compliance *Remain SafePatient is to remain in COVID-19 [place] until 09/11/21 to complete 10 day isolation. Discharge Orders/Prescriptions Prescriptions: New cefepime 2 gram recon soln 2 g IV Q12H 35 Days Qty: 70 RF: 0 carvedilol [Coreg] 6.25 mg tablet 6.25 mg PO BID Qty: 60 RF: 0 Continued atorvastatin 80 mg tablet 80 mg PO QHS Qty: 90 RF: 3 insulin lispro 100 UNIT/ML insulin pen 20 unit SC TIDCM RF: 0 pramipexole 1 MG tablet 1.5 mg PO BID RF: 0 clopidogrel 75 MG tablet 75 mg PO DAILY Qty: 0 RF: 0 isosorbide mononitrate 30 mg tablet extended release 24 hr 30 mg PO DAILY RF: 0 paroxetine HCl 20 mg tablet 20 mg PO QHS RF: 0 oxycodone 5 mg tablet 5 mg PO BID PRN (Reason: Pain) RF: 0 dexamethasone [Decadron] 6 mg tablet 6 mg PO DAILY Qty: 10 RF: 0 benzonatate 100 mg Capsule 100 mg PO TID PRN PRN (Reason: Cough) RF: 0 cyclobenzaprine 5 mg Tablet 5 mg PO QHS RF: 0 bupropion HCl 150 mg PO.IVFORM DAILY RF: 0 furosemide 40 mg Tablet 40 mg PO DAILY RF: 0 Lantus Solostar U-100 Insulin 100 unit/mL (3 mL) Insulin Pen 35 unit SUBCUT BID RF: 0 Phenergan-Codeine 1 tsp PO/SL Q6H PRN PRN (Reason: Cough) RF: 0 Discontinued metoprolol succinate 25 mg Tablet Extended Release 24 Hr 25 mg PO BID RF: 0 Referrals / Follow Up: Raúl Eric MD [Primary Care Provider] - Within 2 Weeks (office will call to schedule an appointment) Kike Tello MD [STAFF PHYSICIAN] - 09/16/21 3:00 pm ( will see you at the [facility] center.) Disposition Disposition (needs filled in before D/C Order can be placed): Home Health Service Charges/Coding Visit Charges Inpatient E&M: 90999 Disch Hosp Hospital Course Consultations Consultations: Consultations 09/01/21 18:49 Consult: Onc/Wound/etl developer Routine Comment: wounds to bilateral lower extremities 09/02/21 08:20 Consult: Infectious Disease Routine Consulting Provider: Kike Tello Reason for Consult: Staph bactermemia, unknown source EMERGENT Consult: No Notified: Yes Date Notified: 09/02/21 Time Notified: 08:20 Method of Notification: Text 09/02/21 12:42 Consult: Podiatry Routine Consulting Provider: Lavern Edgar Reason for Consult: bilat foot ulcers, MSSA bacteremia EMERGENT Consult: No Notified: Yes Date Notified: 09/02/21 Time Notified: 12:42 Method of Notification: Text 09/07/21 12:21 Consult: Infectious Disease Routine Consulting Provider: Kike Tello Reason for Consult: MSSA bacteremia EMERGENT Consult: No MD Notified: Yes Date Notified: 09/07/21 Time Notified: 12:32 Method of Notification: Text Operations None
[2021-09-08] MEDS: Insulin Lispro 100 UNIT/ML INSULN.PEN 20 UNIT SC (17:39)
[2021-09-08 19:31] LABS: Bedside Glucose 132 mg/dL (70-110)
== END 2021-09-08 20:05 | disposition home health service (06) | DRG 166 ==
LOC: ED 16:22 → PCU 16:40
PROVIDERS: Family Medicine; Hospitalist; Podiatrist; Admitting Provider Family Medicine; Emergency Provider Emergency Medicine; PCP Family Medicine; Visit Provider Internal Medicine
DX: U07.1 COVID-19 (principal); J96.01 Acute respiratory failure with hypoxia; G93.41 Metabolic encephalopathy; E43 Unspecified severe protein-calorie malnutrition; I21.A1 Myocardial infarction type 2; N18.4 Chronic kidney disease, stage 4 (severe); N25.81 Secondary hyperparathyroidism of renal origin; N17.9 Acute kidney failure, unspecified; I12.9 Hypertensive chronic kidney disease with stage 1 through stage 4 chronic kidney disease, or unspecified chronic kidney disease; B96.5 Pseudomonas (aeruginosa) (mallei) (pseudomallei) as the cause of diseases classified elsewhere; B95.61 Methicillin susceptible Staphylococcus aureus infection as the cause of diseases classified elsewhere; L97.522 Non-pressure chronic ulcer of other part of left foot with fat layer exposed; E11.621 Type 2 diabetes mellitus with foot ulcer; E78.5 Hyperlipidemia, unspecified; I25.10 Atherosclerotic heart disease of native coronary artery without angina pectoris; G25.81 Restless legs syndrome; E66.9 Obesity, unspecified; F32.A Depression, unspecified; I25.5 Ischemic cardiomyopathy; K21.9 Gastro-esophageal reflux disease without esophagitis; L97.513 Non-pressure chronic ulcer of other part of right foot with necrosis of muscle; D63.8 Anemia in other chronic diseases classified elsewhere; E11.42 Type 2 diabetes mellitus with diabetic polyneuropathy; E11.610 Type 2 diabetes mellitus with diabetic neuropathic arthropathy; B96.89 Other specified bacterial agents as the cause of diseases classified elsewhere; I25.2 Old myocardial infarction; Z79.899 Other long term (current) drug therapy; Z79.4 Long term (current) use of insulin; Z79.02 Long term (current) use of antithrombotics/antiplatelets; Z68.33 Body mass index [BMI] 33.0-33.9, adult; Z91.19 Patient's noncompliance with other medical treatment and regimen; Z89.432 Acquired absence of left foot; Z89.431 Acquired absence of right foot; Z68.31 Body mass index [BMI] 31.0-31.9, adult
CPT/HCPCS: 36415; 36569; 71045; 73630; 80048; 80053; 80061; 80202; 80307; 81001; 82274; 82550; 82728; 82962; 83540; 83550; 83605; 83615; 83735; 83880; 84100; 84145; 84484; 85014; 85018; 85025; 85379; 85384; 85610; 85730; 86140; 86850; 86900; 86901; 86920; 86922; 87040; 87070; 87077; 87149; 87184; 87186; 87205; 87449; 87633; 87640; 87641; 93005; 93306; 93970; 94002; 97110; 97162; 97166; 97530; 97535; 97802; 99251; 99285; J0878; J7030; J7040; J7050; P9016; A4216; G0463; J2405; J3490

== ENCOUNTER 2021-09-09 09:42 | Inpatient (IN) | payer MEDICARE, MEDICAID, SELFPAY ==
[2018-09-21 13:23] VITALS: BMI 29.3
[2021-09-09] VITALS (12 sets, daily range): BP systolic 145–185; BP diastolic 74–98; PULSE 74–96; RESP 12–20; TEMP 36.6–37.4; O2SAT 97–98; BMI 41.9; BMI 39.2
--- NOTE | 2021-09-09 10:05 | EX.ED.DYSGE1 ---
HPI History of Present Illness Chief Complaint: Hypertension Informant: patient Onset/Context/Timing Onset: Today Narrative Narrative: 56-year-old female history of high recently diagnosed hypertension, diabetes, CAD with 3 cardiac stents on Plavix and known renal insufficiency. Recently hospitalized and discharged from this facility. Today her home nurse thought her blood pressure was elevated and sent her in to be evaluated. She denies other complaints. She is currently on blood pressure medications. Did not take them yet this morning. Prior similar symptoms: Yes Recent Illness/Hospitalization: Yes PFSH [facility] Medical History Acquired varus deformity of left foot Acquired varus deformity of right foot Amputation foot, bilat Anemia Anemia due to chronic illness Anxiety Anxiety and depression Atherosclerosis of [place] coronary artery of [place] heart without angina pectoris Back pain, chronic Bilateral edema of lower extremity Chronic renal insufficiency Chronic ulcer of left foot with fat layer exposed Coronary artery disease Delayed wound healing Depression Diabetes Diabetic foot ulcer associated with type 2 diabetes mellitus Diabetic infection of left foot Diabetic polyneuropathy Diabetic ulcer of right ankle Essential (primary) hypertension GERD (gastroesophageal reflux disease) Hemoglobin A1c greater than 9.0% HLD (hyperlipidemia) Hyperparathyroidism, secondary renal Hypertension Iron deficiency anemia Ischemic cardiomyopathy Myocardial infarct Non-compliance Non-smoker Normocytic anemia NSTEMI (non-ST elevated myocardial infarction) (09/20/18) Obesity (BMI 30.0-34.9) Osteomyelitis of left foot RLS (restless legs syndrome) Stage 4 chronic kidney disease TIA (transient ischemic attack) 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 Ulcer of left foot with muscle involvement without evidence of necrosis Ulcer of right lower extremity with fat layer exposed Home Medications atorvastatin 80 mg tablet 80 mg PO QHS #90 tablet 11/30/19 [Rx Last Taken 07/05/21] insulin lispro 20 unit SC TIDCM 08/31/20 [History Last Taken 07/06/21] pramipexole 1.5 mg PO BID 09/12/20 [History Last Taken 07/06/21] clopidogrel 75 mg PO DAILY #0 tablet 01/01/21 [Rx Last Taken 07/05/21] isosorbide mononitrate 30 mg PO DAILY 03/03/21 [History Last Taken 07/04/21] oxycodone 5 mg PO BID PRN 07/07/21 [History Last Taken 07/06/21] paroxetine HCl 20 mg PO QHS 07/07/21 [History Last Taken 07/06/21] Lantus Solostar U-100 Insulin 35 unit SUBCUT BID 09/02/21 [History Last Taken Unknown] Phenergan-Codeine 1 tsp PO/SL Q6H PRN PRN 09/02/21 [History Last Taken Unknown] benzonatate 100 mg PO TID PRN PRN 09/02/21 [History Last Taken Unknown] bupropion HCl 150 mg PO.IVFORM DAILY 09/02/21 [History Last Taken Unknown] cyclobenzaprine 5 mg PO QHS 09/02/21 [History Last Taken Unknown] furosemide 40 mg PO DAILY 09/02/21 [History Last Taken Unknown] cefepime 2 g IV Q12H 35 Days #70 ea 09/07/21 [Rx Last Taken Unknown] carvedilol [Coreg] 6.25 mg PO BID #60 tab 09/08/21 [Rx Last Taken Unknown] magnesium oxide [MagOx] 400 mg PO DAILY #30 tab 09/08/21 [Rx Last Taken Unknown] Allergy/AdvReac Type Severity Reaction Status Date / Time oxycodone [From OxyContin] Allergy feels Verified 09/09/21 09:50 like I'm drowning Penicillins Allergy swelling Verified 09/09/21 09:50 in throat vancomycin Allergy Itching Verified 09/09/21 09:50 metronidazole AdvReac Nausea Verified 09/09/21 09:50 Family History Mother Diabetes CVA (cerebral vascular accident) Brother CAD (coronary artery disease) CABG X 3 Cancer testicular Diabetes Brother CAD (coronary artery disease) CABG X3 Diabetes Brother CAD (coronary artery disease) Stents Diabetes Sister CAD (coronary artery disease) CABG x 3 CVA (cerebral vascular accident) Diabetes Surgical History History of bilateral carpal tunnel release History of History of coronary artery stent placement (12/31/20) History of foot surgery History of rotator cuff surgery Social History household members: none Smoking Status: Never smoker alcohol intake: never substance use type: does not use caffeine: Yes Type: carbonated beverages Number of servings: 2 ROS ROS ED ROS Narrative Denies. Review of Systems ROS Unobtainable: Denies due to encephalopathy Constitutional Constitutional ED: Denies anorexia or chills Eyes Eyes: Denies blindness ENT ENT ED: Denies change in voice Cardiovascular Cardiovascular: Denies abdominal pain Respiratory/Chest Respiratory/Chest: Reports none; Denies chest congestion Gastrointestinal Gastrointestinal: Denies change in bowel habits or diarrhea Genitourinary Genitourinary ED: Reports none; Denies hematuria Musculoskeletal Musculoskeletal: Denies deformity Neurologic Neurologic: Denies focal weakness Psychiatric Psychiatric: Denies confusion Endocrine Endocrinology: Denies deepening of the voice Hematologic/Lymphatic Hematologic/Lymphatic: Denies lymphadenopathy Allergic/Immunologic Allergic/Immunologic ED: Denies lip swelling or mouth swelling EXAM Physical Exam Narrative Exam Narrative: Middle-aged female no acute distress initial blood pressure 185/98. She does not look septic or toxic. HEENT exam unremarkable. Lungs clear to auscultation bilaterally. Heart regular rhythm no murmur. Abdomen soft nontender normal bowel sounds no peritoneal signs. Patient moving all 4 extremities she has both lower extremities wrapped around the ankles lower leg and feet with [place] wraps due to recent surgery. She has 1+ edema bilaterally. Neurologically she is awake and alert with no focal motor deficits. Const Vital Signs: 09/09/21 09:44 09/09/21 09:47 09/09/21 09:49 Temperature 98.7 F 98.7 F Temperature Source Oral Oral Pulse Rate 96 96 Respiratory Rate 18 18 Respiratory Effort Normal Non-Labored Respiratory Pattern Normal Blood Pressure 185/98 H 185/98 H Blood Pressure Mean 127 127 Pulse Ox 97 97 Oxygen Delivery Method Room Air Room Air 09/09/21 11:20 Temperature Temperature Source Pulse Rate 96 Respiratory Rate 12 Respiratory Effort Respiratory Pattern Blood Pressure 178/90 H Blood Pressure Mean 119 Pulse Ox Oxygen Delivery Method Positive well nourished, well developed, obese, alert, oriented x3 and no apparent distress; Negative for cachectic, contractures or unkempt General Appearance ED: well developed; Negative for unkempt, cachectic or contractures Nutritional Appearance: obese; Negative for cachectic HEENT Reports normocephalic, head/scalp atraumatic and moist mucous membranes Eyes PERRL and EOMs intact bilaterally General Eye ED: Yes normal appearance of both eyes Neck full ROM, nuchal rigidity, no lymphadenopathy, supple, no meningeal signs, no JVD, No thyroid normal, No nodes and no carotid bruits Lymph Lymphatic: no lymphadenopathy noted and no lymphedema noted; Negative for lymphedema or lymphadenopathy Chest Wall inspection of chest normal and palpation of chest normal Resp normal respiratory effort, normal air movement, no retractions, no use of accessory muscles and clear to auscultation bilaterally Cardio regular rate, regular rhythm, S1 normal heart sound, S2 normal heart sound and no murmurs GI normal to inspection, nondistended, normoactive bowel sounds, soft to palpation, non-tender, non-distended and no masses; Negative for hepatosplenomegaly Back/Spine no CVA tenderness, normal ROM and normal to inspection Extremity normal to inspection, full ROM and normal capillary refill Neuro oriented x3, moves all extremities and no focal motor deficits Psych mental status grossly normal and thought process normal Appearance: Negative for unkempt Skin no rashes or lesions noted MDM MDM MDM Narrative Medical decision making narrative: [id number] female with hypertension has not taken her meds yet today. Blood pressure is elevated this morning. She will be given a dose of her home meds and observe. She was just recently hospitalized and significant lab work done at that time. Nurses made me aware that the patient's home health think she is failing at home and needs placed in a long-term. wire preparation worker evaluated the patient said she will need to be hot admitted to the hospital first. Lab Data Attestation: I reviewed the patient's lab results. Lab results narrative: White count elevated at 20,200. Hemoglobin 7.6 she runs a baseline anemia. Platelets 300,000. Electrolytes show a gap of 8. BUN and creatinine of 55 1.52 she has a history of renal insufficiency. Glucose 132. Labs: Laboratory Results - last 24 hr 09/09/21 09/09/21 11:10 11:10 WBC 20.2 H RBC 2.78 L Hgb 7.6 L Hct 24.2 L MCV 87.1 MCH 27.3 MCHC 31.4 L RDW Std Deviation 51.0 H RDW Coeff of Fior 16.2 H Plt Count 300 MPV 10.6 Immature Gran % (Auto) 5.000 H Neut % (Auto) 85.4 H Lymph % (Auto) 4.5 L [place] % (Auto) 4.0 Eos % (Auto) 1.0 Baso % (Auto) 0.1 Absolute Neuts (auto) 17.2 H Absolute Lymphs (auto) 0.91 Nucleated RBC % 0 Sodium 141 Potassium 4.8 Chloride 114 H Carbon Dioxide 19.0 L Anion Gap 8 BUN 55 H Creatinine 1.52 H Estim Creat Clear Calc 35.69 Est GFR (MDRD) Af Amer 46 L Est GFR (MDRD) Non-Af 38 L BUN/Creatinine Ratio 36.2 H Glucose 132 H Calcium 8.5 Discharge Plan Triage Chief Complaint: Hypertension ED Provider: Sachin Schmitz Dx/Rx/DC Orders Clinical Impression: Type 2 diabetes mellitus with diabetic polyneuropathy, Hypertension Prescriptions: No Action atorvastatin 80 mg tablet 80 mg PO QHS Qty: 90 RF: 3 insulin lispro 100 UNIT/ML insulin pen 20 unit SC TIDCM RF: 0 pramipexole 1 MG tablet 1.5 mg PO BID RF: 0 clopidogrel 75 MG tablet 75 mg PO DAILY Qty: 0 RF: 0 isosorbide mononitrate 30 mg tablet extended release 24 hr 30 mg PO DAILY RF: 0 paroxetine HCl 20 mg tablet 20 mg PO QHS RF: 0 oxycodone 5 mg tablet 5 mg PO BID PRN (Reason: Pain) RF: 0 benzonatate 100 mg Capsule 100 mg PO TID PRN PRN (Reason: Cough) RF: 0 cyclobenzaprine 5 mg Tablet 5 mg PO QHS RF: 0 bupropion HCl 150 mg PO.IVFORM DAILY RF: 0 furosemide 40 mg Tablet 40 mg PO DAILY RF: 0 Lantus Solostar U-100 Insulin 100 unit/mL (3 mL) Insulin Pen 35 unit SUBCUT BID RF: 0 Phenergan-Codeine 1 tsp PO/SL Q6H PRN PRN (Reason: Cough) RF: 0 cefepime 2 gram recon soln 2 g IV Q12H 35 Days Qty: 70 RF: 0 carvedilol [Coreg] 6.25 mg tablet 6.25 mg PO BID Qty: 60 RF: 0 magnesium oxide [MagOx] 400 mg (241.3 mg magnesium) tablet 400 mg PO DAILY Qty: 30 RF: 0 Primary Care Provider: Raúl Eric Referrals: Raúl Eric MD [Primary Care Provider] -
[2021-09-09] MEDS: Carvedilol 6.25 MG Tablet PO ×2 (10:31→18:00)
--- NOTE | 2021-09-09 10:49 | CM.ED ---
SOCIAL WORK Referral Source: [place] [facility] Reason for Consult: Discharge Planning Informed by prosthetic aide, Home Health reported concerns for patient in the home as she is left alone during the day, unable to ambulate. Home Health recommending SNF. Met with patient in room to discuss concerns and safe discharge planning. Patient in agreement with SNF and requests referral to [facility]. Call to [facility], left message for admissions. Awaiting call back at this time. Referral faxed. Dr. Schmitz updated on the above. Anticipate admission as patient will require insurance authorization for SNF. Scot Sheikh, ROASTMASTER, DOCUMENT MANAGER
--- NOTE | 2021-09-09 11:19 | ED.RN ---
pt states PICC was placed yesterday.
[2021-09-09 11:25] LABS: Absolute Lymphocyte Count 0.91 X10^3/uL (0.83-4.51); Absolute Neutrophil Count 17.2 X10^3/uL (2.0-7.7); Basophil# 0.02 X10^3/uL; Basophil% 0.1 % (0-1); Hematocrit 24.2 % (37-47); Hemoglobin 7.6 g/dL (12.0-15.0); Lymphocyte # 0.91 X10^3/ul (0.83-4.51); Lymphocyte % 4.5 % (19-41); Mean Corp Hgb Conc 31.4 g/dL (32-36); Mean Corpuscular Hgb 27.3 pg (27.0-32.0); Mean Corpuscular Volume 87.1 fL (81-99); Mean Platelet Vol. 10.6 fl (6.2-12.0); NRBC Flagged by Analyzer 0 % (0-5); Neutrophil # 17.24 X10^3/uL (2.7-7.7); Neutrophil % 85.4 % (47-70); Platelet Count 300 K/mm3 (150-450); RBC Distribution Width CV 16.2 % (11.6-14.6); Red Blood Count 2.78 M/mm3 (4.2-5.4); White Blood Count 20.2 K/mm3 (4.4-11.0)
--- NOTE | 2021-09-09 11:30 | CM.ED ---
SOCIAL WORK Received call back from Kvng with [facility]. Kvng reports will review referral and get back to this worker regarding if [facility] able to accommodate patient for SNF placement. Scot Sheikh, OCCUPATIONAL THERAPIST PER DIEM, SALAD MAKER
[2021-09-09 11:34] LABS: Anion Gap 8 (5-15); BUN 55 mg/dL (7-18); BUN/Creat Ratio 36.2 RATIO (10-20); Calcium,Total 8.5 mg/dL (8.5-10.1); Chloride 114 mmol/L (98-107); Creatinine, Serum 1.52 mg/dL (0.55-1.02); EST Glomerular Filtration Rate 38 mL/min (>60); Est Glom Filt Rate - Afr Amer 46 mL/min (>60); Estimated Creatinine Clearance 35.69 ml/min; Glucose 132 mg/dL (74-106); Potassium 4.8 mmol/L (3.5-5.1); Sodium Level 141 mmol/L (136-145)
--- NOTE | 2021-09-09 11:57 | HP.PCM.HOS_ITS ---
HPI - General General Date of Admission: 09/09/21 HPI Narrative DIONY ROCHA, is a 56 F recently discharged from the hospital following hospitalization for COVID-19 infection as well as diabetic foot infections discharged home on 09/08/2021. Patient was evaluated by her home health nurse found to have markedly elevated blood pressure with systolic greater than 190. Her home health nurse also felt patient was not thriving at home. Decision was therefore made to send patient back to the ED with plans for patient to be transferred to a penitentiary facility [facility] Medical History Acquired varus deformity of left foot Acquired varus deformity of right foot Amputation foot, bilat Anemia Anemia due to chronic illness Anxiety Anxiety and depression Atherosclerosis of [place] coronary artery of [place] heart without angina pectoris Back pain, chronic Bilateral edema of lower extremity Chronic renal insufficiency Chronic ulcer of left foot with fat layer exposed Coronary artery disease Delayed wound healing Depression Diabetes Diabetic foot ulcer associated with type 2 diabetes mellitus Diabetic infection of left foot Diabetic polyneuropathy Diabetic ulcer of right ankle Essential (primary) hypertension GERD (gastroesophageal reflux disease) Hemoglobin A1c greater than 9.0% HLD (hyperlipidemia) Hyperparathyroidism, secondary renal Hypertension Iron deficiency anemia Ischemic cardiomyopathy Myocardial infarct Non-compliance Non-smoker Normocytic anemia NSTEMI (non-ST elevated myocardial infarction) (09/20/18) Obesity (BMI 30.0-34.9) Osteomyelitis of left foot RLS (restless legs syndrome) Stage 4 chronic kidney disease TIA (transient ischemic attack) 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 Ulcer of left foot with muscle involvement without evidence of necrosis Ulcer of right lower extremity with fat layer exposed Home Medications atorvastatin 80 mg tablet 80 mg PO QHS #90 tablet 11/30/19 [Rx Last Taken 07/05/21] insulin lispro 20 unit SC TIDCM 08/31/20 [History Last Taken 07/06/21] pramipexole 1.5 mg PO BID 09/12/20 [History Last Taken 07/06/21] clopidogrel 75 mg PO DAILY #0 tablet 01/01/21 [Rx Last Taken 07/05/21] isosorbide mononitrate 30 mg PO DAILY 03/03/21 [History Last Taken 07/04/21] oxycodone 5 mg PO BID PRN 07/07/21 [History Last Taken 07/06/21] paroxetine HCl 20 mg PO QHS 07/07/21 [History Last Taken 07/06/21] Lantus Solostar U-100 Insulin 35 unit SUBCUT BID 09/02/21 [History Last Taken Unknown] Phenergan-Codeine 1 tsp PO/SL Q6H PRN PRN 09/02/21 [History Last Taken Unknown] benzonatate 100 mg PO TID PRN PRN 09/02/21 [History Last Taken Unknown] bupropion HCl 150 mg PO.IVFORM DAILY 09/02/21 [History Last Taken Unknown] cyclobenzaprine 5 mg PO QHS 09/02/21 [History Last Taken Unknown] furosemide 40 mg PO DAILY 09/02/21 [History Last Taken Unknown] cefepime 2 g IV Q12H 35 Days #70 ea 09/07/21 [Rx Last Taken Unknown] carvedilol [Coreg] 6.25 mg PO BID #60 tab 09/08/21 [Rx Last Taken Unknown] magnesium oxide [MagOx] 400 mg PO DAILY #30 tab 09/08/21 [Rx Last Taken Unknown] Allergy/AdvReac Type Severity Reaction Status Date / Time oxycodone [From OxyContin] Allergy feels Verified 09/09/21 09:50 like I'm drowning Penicillins Allergy swelling Verified 09/09/21 09:50 in throat vancomycin Allergy Itching Verified 09/09/21 09:50 metronidazole AdvReac Nausea Verified 09/09/21 09:50 Family History Mother Diabetes CVA (cerebral vascular accident) Brother CAD (coronary artery disease) CABG X 3 Cancer testicular Diabetes Brother CAD (coronary artery disease) CABG X3 Diabetes Brother CAD (coronary artery disease) Stents Diabetes Sister CAD (coronary artery disease) CABG x 3 CVA (cerebral vascular accident) Diabetes Surgical History History of bilateral carpal tunnel release History of History of coronary artery stent placement (12/31/20) History of foot surgery History of rotator cuff surgery Social History household members: none Smoking Status: Never smoker alcohol intake: never substance use type: does not use caffeine: Yes Type: carbonated beverages Number of servings: 2 ROS ROS Narrative GENERAL: denies fever, chills, night sweats, HEENT: denies headache, sinus congestion, RESPIRATORY: denies cough, sputum production, CARDIAC: denies chest pain, palpitations, orthopnea, GASTROINTESTINAL: denies abdominal pain, nausea, GENITOURINARY: denies dysuria, urgency, frequency, EXTREMITY: denies swelling MUSCULOSKELETAL: denies current joint pain or tenderness NEUROLOGIC: denies focal numbness, weakness, tingling HEMATOLOGIC: denies easy bruising and/or hemorrhage INTEGUMENT: denies rashes PSYCHIATRIC: denies suicidal or homicidal ideation Vital Signs Vital Signs Vital Signs: 09/09/21 09:44 09/09/21 09:47 09/09/21 09:49 Temperature 98.7 F 98.7 F Temperature Source Oral Oral Pulse Rate 96 96 Respiratory Rate 18 18 Respiratory Effort Normal Non-Labored Respiratory Pattern Normal Blood Pressure 185/98 H 185/98 H Blood Pressure Mean 127 127 Pulse Ox 97 97 Oxygen Delivery Method Room Air Room Air 09/09/21 11:20 Temperature Temperature Source Pulse Rate 96 Respiratory Rate 12 Respiratory Effort Respiratory Pattern Blood Pressure 178/90 H Blood Pressure Mean 119 Pulse Ox Oxygen Delivery Method Weight Weight: 110.9 kg Body Mass Index (BMI) 41.9 Physical Exam Narrative GENERAL: cooperative HEENT: Atraumatic; EYES; Anicteric, Normal Conjunctiva NECK; supple, normal thyroid, RESPIRATORY: Diminished to auscultation CARDIOVASCULAR: Regular S1 S2, GI: soft, normoactive bowel sounds, : No Renal angle tenderness; EXTREMITIES: Both feet in surgical dressing NEURO: Awake; no lateralizing signs. SKIN: No Rash PSYCH; Flat affect Results Lab / Micro Data Result Diagrams: 09/09/21 11:10 09/09/21 11:10 Labs: Laboratory Results - last 24 hr 09/09/21 11:10: WBC 20.2 H, RBC 2.78 L, Hgb 7.6 L, Hct 24.2 L, MCV 87.1, MCH 27.3, MCHC 31.4 L, RDW Std Deviation 51.0 H, RDW Coeff of Fior 16.2 H, Plt Count 300, MPV 10.6, Immature Gran % (Auto) 5.000 H, Neut % (Auto) 85.4 H, Lymph % (Auto) 4.5 L, [place] % (Auto) 4.0, Eos % (Auto) 1.0, Baso % (Auto) 0.1, Absolute Neuts (auto) 17.2 H, Absolute Lymphs (auto) 0.91, Nucleated RBC % 0 09/09/21 11:10: Sodium 141, Potassium 4.8, Chloride 114 H, Carbon Dioxide 19.0 L , Anion Gap 8, BUN 55 H, Creatinine 1.52 H, Estim Creat Clear Calc 35.69, Est GFR (MDRD) Af Amer 46 L, Est GFR (MDRD) Non-Af 38 L, BUN/Creatinine Ratio 36.2 H , Glucose 132 H, Calcium 8.5 Assessment & Plan Assessment/Plan (1) Hypertension: (2) Adult failure to thrive: (3) Diabetic foot infection: PLAN: Patient is a 56-year-old lady with multiple comorbidities with recent hospitalization for COVID 19 and diabetic foot infection presented with elevated blood pressure 1. Accelerated hypertension ?Admitted to a monitored bed with adjustment of patient antihypertensives made 2. Adult failure to thrive ?Due to recent COVID 19 infection as well as bilateral diabetic foot infection. Requested for licensed clinical social worker to assist with discharge planning also did put in a consult for PT and OT 3. Recent COVID-19 infection -Patient due to come out of isolation on 09/11/2021 4. Diabetic foot ulcer ?Wound cultures grew Pseudomonas, Enterobacter and Klebsiella sensitive to cefepime. Consultation placed to podiatry note and recommendations reviewed. Patient underwent Subcutaneous excisional debridement was performed (left) and tendon excisional debridement on 09/07/[address] Edgar. Patient was discharged home on cefepime 2 g IV every 12 hours plan is to continue 5. Chronic kidney disease stage III ?Patient kidney function was back to baseline at the time of discharge 6. Coronary artery disease -With PCI to mid LAD lesion with a DARA on 01/01/21. Patient is currently on dual antiplatelet therapy and high intensity statin 7. Dyslipidemia -Patient is on statin therapy, continued at home dose 8. Anemia - Secondary to chronic disorder monitoring H&H and transfuse if patient becomes symptomatic or hemoglobin falls below 7 9. Diabetes mellitus type II ?With complications including Charcot foot as well as diabetic foot ulcers. Patient is onlong acting insulin, Accu-Cheks a.c. and at bedtime and covered with sliding scale insulin 10. Depression with anxiety ?Patient is on SSRI 11. DVT prophylaxis ?SCDs, avoid any use of Lovenox in view of patient significant anemia Charges/Coding Visit Charges Inpatient E&M: 79523 Init Hosp L3
--- NOTE | 2021-09-09 14:14 | WOUNDNOTE ---
wound photo: right foot
--- NOTE | 2021-09-09 14:16 | WOUNDNOTE ---
wound photo: left foot
[2021-09-09] MEDS: 0.9% Normal Saline 1,000 ML 75 ML IV (14:26)
--- NOTE | 2021-09-09 16:01 | CASEMGMT ---
SW received a call from [facility] and they cannot accept patient. SW attempted to reach patient a couple of times, but she was unavailable. LUCRETIA printed a list of local nursing homes and the RN will take it in to the patient. LUCRETIA will follow up in the am. Kamilla MCCORD
[2021-09-09] MEDS: Cefepime HCl 2 GM in 0.9% NS 100 ML Minibag Q12 IV ×2 (16:06→21:55)
[2021-09-09 16:41] LABS: Bedside Glucose 130 mg/dL (70-110)
--- NOTE | 2021-09-09 16:44 | CON.PCM_ITS ---
Assessment & Plan Assessment/Plan (1) Ulcer of left foot with fat layer exposed: (2) Chronic ulcer of right foot with necrosis of muscle: (3) Charcot's joint of right foot: (4) Charcot's joint of left foot: (5) Delayed wound healing: (6) Bacteremia: (7) Type 2 diabetes mellitus with diabetic polyneuropathy: PLAN: I reviewed and discussed her case today. No local foot signs of infection noted. Improvement in ulcer bed quality is seen. Her recent bacteremia with likely foot nidus as source is noted. Prior infection management from other admission is noted. Continue cefepime. The following work up and care recommendations were made: Dressing: Change daily with Dakin wet-to-dry solution bilateral Offload: Nonweightbearing bilateral recommended. Toe-touch for transfers only. Use assistive device. Edema: Bilateral [place] wraps. I answered all the patient's questions. The podiatry team will follow her weekly while in house. Thank you for the consultation. Please do not hesitate to call if you have any questions. Lavern Edgar DPM, [facility] [phone] HPI Consult Data Date of Consult: 09/09/21 HPI Narrative Reason for Consultation: foot ulcers with recent infection HPI Narrative: DIONY ROCHA, is a 56 F who was admitted for hypertension was seen bedside for bilateral foot ulcer with recent treatment for infection and bactermia. she was recently discharged home on IV antibiotics. She denies fever, chills, nausea, vomiting. FOR[facility]LY [facility] Medical History Acquired varus deformity of left foot Acquired varus deformity of right foot Amputation foot, bilat Anemia Anemia due to chronic illness Anxiety Anxiety and depression Atherosclerosis of [place] coronary artery of [place] heart without angina pectoris Back pain, chronic Bilateral edema of lower extremity Chronic renal insufficiency Chronic ulcer of left foot with fat layer exposed Coronary artery disease Delayed wound healing Depression Diabetes Diabetic foot ulcer associated with type 2 diabetes mellitus Diabetic infection of left foot Diabetic polyneuropathy Diabetic ulcer of right ankle Essential (primary) hypertension GERD (gastroesophageal reflux disease) Hemoglobin A1c greater than 9.0% HLD (hyperlipidemia) Hyperparathyroidism, secondary renal Hypertension Iron deficiency anemia Ischemic cardiomyopathy Myocardial infarct Non-compliance Non-smoker Normocytic anemia NSTEMI (non-ST elevated myocardial infarction) (09/20/18) Obesity (BMI 30.0-34.9) Osteomyelitis of left foot RLS (restless legs syndrome) Stage 4 chronic kidney disease TIA (transient ischemic attack) 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 Ulcer of left foot with muscle involvement without evidence of necrosis Ulcer of right lower extremity with fat layer exposed Home Medications atorvastatin 80 mg tablet 80 mg PO QHS #90 tablet 11/30/19 [Rx Last Taken 07/05/21] insulin lispro 20 unit SC TIDCM 08/31/20 [History Last Taken 07/06/21] pramipexole 1.5 mg PO BID 09/12/20 [History Last Taken 07/06/21] clopidogrel 75 mg PO DAILY #0 tablet 01/01/21 [Rx Last Taken 07/05/21] isosorbide mononitrate 30 mg PO DAILY 03/03/21 [History Last Taken 07/04/21] oxycodone 5 mg PO BID PRN 07/07/21 [History Last Taken 07/06/21] paroxetine HCl 20 mg PO QHS 07/07/21 [History Last Taken 07/06/21] Lantus Solostar U-100 Insulin 35 unit SUBCUT BID 09/02/21 [History Last Taken Unknown] Phenergan-Codeine 1 tsp PO/SL Q6H PRN PRN 09/02/21 [History Last Taken Unknown] benzonatate 100 mg PO TID PRN PRN 09/02/21 [History Last Taken Unknown] bupropion HCl 150 mg PO.IVFORM DAILY 09/02/21 [History Last Taken Unknown] cyclobenzaprine 5 mg PO QHS 09/02/21 [History Last Taken Unknown] furosemide 40 mg PO DAILY 09/02/21 [History Last Taken Unknown] cefepime 2 g IV Q12H 35 Days #70 ea 09/07/21 [Rx Last Taken Unknown] carvedilol [Coreg] 6.25 mg PO BID #60 tab 09/08/21 [Rx Last Taken Unknown] magnesium oxide [MagOx] 400 mg PO DAILY #30 tab 09/08/21 [Rx Last Taken Unknown] Allergy/AdvReac Type Severity Reaction Status Date / Time oxycodone [From OxyContin] Allergy feels Verified 09/09/21 09:50 like I'm drowning Penicillins Allergy swelling Verified 09/09/21 09:50 in throat vancomycin Allergy Itching Verified 09/09/21 09:50 metronidazole AdvReac Nausea Verified 09/09/21 09:50 Family History Mother Diabetes CVA (cerebral vascular accident) Brother CAD (coronary artery disease) CABG X 3 Cancer testicular Diabetes Brother CAD (coronary artery disease) CABG X3 Diabetes Brother CAD (coronary artery disease) Stents Diabetes Sister CAD (coronary artery disease) CABG x 3 CVA (cerebral vascular accident) Diabetes Surgical History History of bilateral carpal tunnel release History of History of coronary artery stent placement (12/31/20) History of foot surgery History of rotator cuff surgery Social History household members: none Smoking Status: Never smoker alcohol intake: never substance use type: does not use caffeine: Yes Type: carbonated beverages Number of servings: 2 Physical Exam Narrative General Skin Exam: atrophy and dry skin; Negative for ecchymosis, erythema, eschar, or odor. no purulence, no streaking Wound Narrative: plantar left foot ulceration. No exposed tendon or probe to bone. No maceration noted. There is no erythema or edema or malodor or purulence or other suggestion signs of infection. Serosanguineous drainage noted. Plantar right foot ulceration. improved granular base without additional exposed tendon. No active hematogenous drainage noted. There is no probe to bone. No maceration noted. There is no erythema or malodor or purulence. serosangenous drainage noted Amputations noted to bilateral fifth rays. Charcot foot deformity noted bilat erally. No gross laxity or crepitus with manipulation. Negative calf tenderness negative Jaswinder and Nuñez sign. DP and PT are diminished bilaterally sensory Exam: extremities light-touch: decreased consistent with neuropathic status Const alert and oriented x3 Lab / Micro Data Result Diagrams: 09/09/21 11:10 09/09/21 11:10 Labs: Laboratory Results - last 24 hr 09/09/21 11:10: WBC 20.2 H, RBC 2.78 L, Hgb 7.6 L, Hct 24.2 L, MCV 87.1, MCH 27.3, MCHC 31.4 L, RDW Std Deviation 51.0 H, RDW Coeff of Fior 16.2 H, Plt Count 300, MPV 10.6, Immature Gran % (Auto) 5.000 H, Neut % (Auto) 85.4 H, Lymph % (Auto) 4.5 L, [place] % (Auto) 4.0, Eos % (Auto) 1.0, Baso % (Auto) 0.1, Absolute Neuts (auto) 17.2 H, Absolute Lymphs (auto) 0.91, Nucleated RBC % 0 09/09/21 11:10: Sodium 141, Potassium 4.8, Chloride 114 H, Carbon Dioxide 19.0 L , Anion Gap 8, BUN 55 H, Creatinine 1.52 H, Estim Creat Clear Calc 35.69, Est GFR (MDRD) Af Amer 46 L, Est GFR (MDRD) Non-Af 38 L, BUN/Creatinine Ratio 36.2 H , Glucose 132 H, Calcium 8.5 09/09/21 16:06: POC Glucose 130 H
[2021-09-09] MEDS: Juven (unflavored) Packet 1 PACKET PO (17:59)
[2021-09-09] MEDS: Insulin Lispro 100 UNIT/ML INSULN.PEN 20 UNIT SC (18:00)
[2021-09-09] MEDS: oxyCODONE 5 MG Tablet PO (20:23)
[2021-09-09] MEDS: Atorvastatin Calcium 80 MG Tablet PO (21:55)
[2021-09-09] MEDS: cycloBENZAPRine HCl 5 MG TABLET PO (21:56)
[2021-09-09] MEDS: Paroxetine 20 MG Tablet PO (21:56)
[2021-09-09] MEDS: Pramipexole Di-HCl 1 MG Tablet 1.5 MG PO (21:56)
[2021-09-09] MEDS: Senna/Docusate Sodium 1 Tablet 2 TABLET PO (22:08)
[2021-09-09] MEDS: Ondansetron 4 MG/2 ML Vial IV (22:08)
[2021-09-09] MEDS: 0.9% Saline Lock 10 ML Syringe IV (22:10)
[2021-09-09 22:26] LABS: Bedside Glucose 119 mg/dL (70-110)
--- NOTE | 2021-09-09 23:01 | PCS.PANDOC ---
PANDEMIC DOCUMENTATION INITIATED: Date: 05/25/2021 Time: 190
[2021-09-10] VITALS (10 sets, daily range): BP systolic 116–151; BP diastolic 74–87; PULSE 81–89; RESP 16–22; TEMP 36.6–36.8; O2SAT 96–98
[2021-09-10] MEDS: 0.9% Normal Saline 1,000 ML 75 ML IV ×2 (03:08→16:06)
[2021-09-10] MEDS: Acetaminophen 325 MG Tablet 650 MG PO ×3 (05:32→22:05)
[2021-09-10] MEDS: oxyCODONE 5 MG Tablet PO ×3 (06:24→21:47)
[2021-09-10 06:45] LABS: Bedside Glucose 95 mg/dL (70-110)
[2021-09-10] MEDS: DAKIN'S SOL HALF STRENGTH (=0.25%) 1 APPLIC TOPICAL (08:55)
[2021-09-10] MEDS: Pramipexole Di-HCl 1 MG Tablet 1.5 MG PO ×2 (09:11→22:08)
[2021-09-10] MEDS: Clopidogrel Bisulfate 75 MG Tablet PO (09:11)
[2021-09-10] MEDS: buPROPion (XL) 150 MG TABLET.XL PO (09:11)
[2021-09-10] MEDS: Juven (unflavored) Packet 1 PACKET PO (09:11)
[2021-09-10] MEDS: Isosorbide Mononitrate 30 MG Tablet PO (09:11)
[2021-09-10] MEDS: Furosemide 40 MG Tablet PO (09:11)
[2021-09-10] MEDS: Magnesium Chloride 64 MG Delay Rel.Tablet 128 MG PO (09:12)
[2021-09-10] MEDS: Carvedilol 6.25 MG Tablet PO ×2 (09:12→17:00)
[2021-09-10] MEDS: Cefepime HCl 2 GM in 0.9% NS 100 ML Minibag Q12 IV ×2 (09:12→21:49)
[2021-09-10] MEDS: 0.9% Saline Lock 10 ML Syringe IV (09:13)
[2021-09-10] MEDS: Insulin Lispro 100 UNIT/ML INSULN.PEN 20 UNIT SC (09:14)
[2021-09-10 09:19] LABS: Absolute Lymphocyte Count 0.89 X10^3/uL (0.83-4.51); Absolute Neutrophil Count 17.7 X10^3/uL (2.0-7.7); Basophil# 0.03 X10^3/uL; Basophil% 0.1 % (0-1); Eosinophil# 0.22 X10^3/uL; Eosinophils% 1.1 % (0-5); Hematocrit 24.7 % (37-47); Hemoglobin 7.7 g/dL (12.0-15.0); Lymphocyte # 0.89 X10^3/ul (0.83-4.51); Lymphocyte % 4.3 % (19-41); Mean Corp Hgb Conc 31.2 g/dL (32-36); Mean Corpuscular Hgb 27.6 pg (27.0-32.0); Mean Corpuscular Volume 88.5 fL (81-99); Monocyte# 0.89 X10^3/uL; Monocyte% 4.3 % (0-10); NRBC Flagged by Analyzer 0 % (0-5); Neutrophil # 17.67 X10^3/uL (2.7-7.7); Neutrophil % 86.2 % (47-70); Platelet Count 290 K/mm3 (150-450); RBC Distribution Width CV 16.3 % (11.6-14.6); RBC Distribution Width SD 52.2 fl (35.1-43.9); Red Blood Count 2.79 M/mm3 (4.2-5.4); White Blood Count 20.5 K/mm3 (4.4-11.0)
[2021-09-10 09:45] LABS: Anion Gap 8 (5-15); BUN 55 mg/dL (7-18); BUN/Creat Ratio 36.7 RATIO (10-20); Calcium,Total 8.6 mg/dL (8.5-10.1); Chloride 116 mmol/L (98-107); EST Glomerular Filtration Rate 38 mL/min (>60); Est Glom Filt Rate - Afr Amer 46 mL/min (>60); Glucose 131 mg/dL (74-106); Magnesium 1.6 mg/dL (1.6-2.6); Phosphorus 3.1 mg/dL (2.5-4.9); Sodium Level 141 mmol/L (136-145)
--- NOTE | 2021-09-10 10:33 | PN.HOSP_ITS ---
Documented by User: BRIAN Fitzgerald 09/10/21 10:52 Subjective Subjective Patient seen and examined. Patient sitting in bed no distress noted eating breakfast. Patient complains of pain to left foot. Objective Data Objective Data Vital Signs: Vital Signs Temp Pulse Resp BP Pulse Ox 97.9 F 89 18 143/77 H 98 09/10/21 09:21 12 09:21 09/10/21 09:21 09/10/21 09:21 09/10/21 09:21 Oxygen Delivery Method Room Air Weight: 243 lb 2.718 oz Body Mass Index (BMI) 39.2 Intake & Output: Intake and Output for Last 24 Hours 09/08/21 09/09/21 09/10/21 23:59 23:59 23:59 Intake Total 680 / 680 1072.5 / 1072.5 Output Total 1775 / 1775 200 / 200 Balance -1095 / -1095 872.5 / 872.5 Lab / Micro Data Result Diagrams: 09/10/21 06:54 09/10/21 06:54 Labs: Laboratory Results - last 24 hr 09/09/21 11:10: WBC 20.2 H, RBC 2.78 L, Hgb 7.6 L, Hct 24.2 L, MCV 87.1, MCH 27.3, MCHC 31.4 L, RDW Std Deviation 51.0 H, RDW Coeff of Fior 16.2 H, Plt Count 300, MPV 10.6, Immature Gran % (Auto) 5.000 H, Neut % (Auto) 85.4 H, Lymph % (Auto) 4.5 L, [place] % (Auto) 4.0, Eos % (Auto) 1.0, Baso % (Auto) 0.1, Absolute Neuts (auto) 17.2 H, Absolute Lymphs (auto) 0.91, Nucleated RBC % 0 09/09/21 11:10: Sodium 141, Potassium 4.8, Chloride 114 H, Carbon Dioxide 19.0 L , Anion Gap 8, BUN 55 H, Creatinine 1.52 H, Estim Creat Clear Calc 35.69, Est GFR (MDRD) Af Amer 46 L, Est GFR (MDRD) Non-Af 38 L, BUN/Creatinine Ratio 36.2 H , Glucose 132 H, Calcium 8.5 09/09/21 16:06: POC Glucose 130 H 09/09/21 22:00: POC Glucose 119 H 09/10/21 06:25: POC Glucose 95 09/10/21 06:54: WBC 20.5 H, RBC 2.79 L, Hgb 7.7 L, Hct 24.7 L, MCV 88.5, MCH 27.6, MCHC 31.2 L, RDW Std Deviation 52.2 H, RDW Coeff of Fior 16.3 H, Plt Count 290, MPV 11.0, Immature Gran % (Auto) 4.000 H, Neut % (Auto) 86.2 H, Lymph % (Auto) 4.3 L, [place] % (Auto) 4.3, Eos % (Auto) 1.1, Baso % (Auto) 0.1, Absolute Neuts (auto) 17.7 H, Absolute Lymphs (auto) 0.89, Nucleated RBC % 0 09/10/21 06:54: Sodium 141, Potassium 5.0, Chloride 116 H, Carbon Dioxide 17.0 L , Anion Gap 8, BUN 55 H, Creatinine 1.50 H, Estim Creat Clear Calc 39.20, Est GFR (MDRD) Af Amer 46 L, Est GFR (MDRD) Non-Af 38 L, BUN/Creatinine Ratio 36.7 H , Glucose 131 H, Calcium 8.6, Phosphorus 3.1, Magnesium 1.6 Physical Exam Const alert, oriented x3 and no apparent distress HEENT head/scalp atraumatic Head and Scalp: normocephalic Eyes conjunctivae normal and no scleral icterus Neck full ROM and supple Resp normal respiratory effort Effort and Inspection: able to speak in complete sentences and symmetric chest movement Auscultation: diminished lung sounds Cardio regular rate, regular rhythm, S1 normal heart sound and S2 normal heart sound GI normal to inspection, nondistended, normoactive bowel sounds, soft to palpation and non-tender Extremity normal to inspection and full ROM Skin no rashes or lesions noted, no wounds and skin turgor normal Neuro oriented x3, moves all extremities, no focal motor deficits and no sensory deficits noted Sensorium / Orientation: awake and alert Psych affect normal Assessment & Plan Assessment/Plan (1) Diabetic foot infection: (2) Adult failure to thrive: (3) Type 2 diabetes mellitus with diabetic polyneuropathy: QUALIFIERS: 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 Patient was recently diagnosed with Covid and had been recently hospitalized. Patient's home health nurse was concerned that patient was not doing well at home. Patient admitted to hospital for coordination for SNF placement. 1. Adult failure to thrive -Patient has recent COVID-19 infection as well as bilateral diabetic foot infection which is contributing to her weakness and inability to care for herself -Case management consulted for coordination for SNF placement -PT and OT following 2. COVID-19 -Isolation ends on 09/11/2021 3. Uncontrolled hypertension -Improved, blood pressure reduced from initial presentation -Continue carvedilol, furosemide, isosorbide. -Vital signs per protocol, currently stable 4. Diabetic foot ulcer -Dr. Edgar following -Wound cultures positive for Pseudomonas, Enterobacter, Klebsiella. Continue IV cefepime -Debridement performed on 09/07/2021. 5. Chronic kidney disease stage III -Kidney function at baseline 6. Coronary artery disease -Continue dual antiplatelet therapy and statin 7. Chronic anemia -Hemoglobin 7.7, consistent with patient's baseline over the past 2 months. -Daily CBC ordered if hemoglobin drops below 7 we will plan to transfuse DVT prophylaxis-SCDs This patient was seen by BRIAN Fitzgerald under the supervision of Dr. Yates. Documented by User: Dr. Rodney Yates MD 09/10/21 11:17 Objective Data Lab / Micro Data Result Diagrams: 09/10/21 06:54 09/10/21 06:54 Assessment & Plan Addt'l Comments This patient was seen in conjunction with BRIAN Fitzgerald . I have independently interviewed and examined the patient and reviewed pertinent historical, laboratory, and other data. Please refer to BRIAN Fitzgerald note for details of this patient's presentation, findings, and recommendations. I have reviewed BRIAN Fitzgerald note and concur with documented findings. In brief, patient is a [age] -year-oldM/F admitted with XXXXXXX Patient is a 56-year-old lady with multiple comorbidities with recent hospitalization for COVID 19 and diabetic foot infection presented with elevated blood pressure Physical Examination: GENERAL: cooperative HEENT: Atraumatic; EYES; Anicteric, Normal Conjunctiva NECK; supple, normal thyroid, RESPIRATORY: Diminished to auscultation CARDIOVASCULAR: Regular S1 S2, GI: soft, normoactive bowel sounds, : No Renal angle tenderness; EXTREMITIES: Both feet in surgical dressing NEURO: Awake; no lateralizing signs. SKIN: No Rash PSYCH; Flat affect Assessment: 1. Acute hypertensive urgency 2. Adult failure to thrive 3. Recent COVID-19 infection 4. Diabetic foot ulcer (polymicrobial) 5. Chronic kidney disease stage III 6. Coronary artery disease-With PCI to mid LAD lesion with a DARA on 01/01/21. 7. Dyslipidemia 8. Anemia 9. Diabetes mellitus type II 10. Depression with anxiety 11. DVT prophylaxis Recommendations: 1. I have discussed the results of my overview and impressions with the patient 2. Options for management were reviewed Charges/Coding Visit Charges Inpatient E&M: 61134 Subs Hosp L3
--- NOTE | 2021-09-10 10:58 | CASEMGMT ---
Social Work Pt agreeable to referral to [facility]. Phone call to Juan C at [facility] and VM left regarding new referral. Referral information faxed. Will await determination of acceptance. ERIN Masters
[2021-09-10 12:46] LABS: Bedside Glucose 86 mg/dL (70-110)
--- NOTE | 2021-09-10 14:25 | CASEMGMT ---
LUCRETIA called Cassie at [facility] and asked if they are going to have a bed for patient or if SW should move on to another facility. She said she will go talk with her nurse and get back to . Kamilla MCCORD
--- NOTE | 2021-09-10 15:34 | CASEMGMT ---
Social Work Return call from Juan C at [facility] who states they are able to accept pt and precert has been started. Plan: [facility], pending precert ERIN Masters
--- NOTE | 2021-09-10 16:08 | CASEMGMT ---
Readmission chart review: 09/01-09/08/21 COVID, Acute hypoxemic resp failure 09/09/21-current DM foot infection-unable to care for self Pt with chronic bilat foot wounds and is normally w/c bound at home but able to transfer self. During 1st admission, it was recommended for pt to go to SNF and CM/SW both discussed with pt but pt insisted on going home with [facility] for iv antibx and wound care. Pt stated that her daughter would be able to assist her with iv antibx. Pt was set up with [facility] and [facility]. [facility] went out the next morning and sent pt back to [facility] ED for elev BP, lack of support at home and inability to care for self. SW spoke with pt in the ED but pt will need precert to SNF. Pt is agreeable to SNF at this time. See LUCRETIA notes. CM to follow for any further discharge planning/needs. SStmichael IGLESIAS CM
[2021-09-10 16:56] LABS: Bedside Glucose 92 mg/dL (70-110)
[2021-09-10] MEDS: Paroxetine 20 MG Tablet PO (21:47)
[2021-09-10] MEDS: Atorvastatin Calcium 80 MG Tablet PO (21:47)
[2021-09-10] MEDS: cycloBENZAPRine HCl 5 MG TABLET PO (21:48)
[2021-09-10 22:00] LABS: Bedside Glucose 123 mg/dL (70-110)
[2021-09-10] MEDS: MELATONIN 3 MG TABLET PO (22:05)
[2021-09-11] VITALS (12 sets, daily range): BP systolic 120–180; BP diastolic 72–95; PULSE 85–100; RESP 16–18; TEMP 36.6–37; O2SAT 97–99
[2021-09-11] MEDS: Acetaminophen 325 MG Tablet 650 MG PO (05:20)
[2021-09-11] MEDS: oxyCODONE 5 MG Tablet PO ×3 (05:21→21:45)
[2021-09-11] MEDS: 0.9% Normal Saline 1,000 ML 75 ML IV (05:23)
--- NOTE | 2021-09-11 05:36 | NURSING ---
pt says she thinks her blood sugar is dropping. Bedside glucose 41. 4oz orange juice and peanut butter crackers given. Will monitor until stable
--- NOTE | 2021-09-11 05:48 | NURSING ---
blood sugar recheck 71. 4oz orange juice given. pt states she is feeling a little better.
--- NOTE | 2021-09-11 06:05 | NURSING ---
blood sugar recheck 55. 4oz orange juice given. Will continue to monitor until stable
--- NOTE | 2021-09-11 06:22 | NURSING ---
PB&J crackers given along with a bowl of rice chex cereal. blood sugar recheck 83
--- NOTE | 2021-09-11 06:48 | NURSING ---
recheck blood sugar 80
[2021-09-11 06:51] LABS: Bedside Glucose 80 mg/dL (70-110)
[2021-09-11 06:51] LABS: Bedside Glucose 55 mg/dL (70-110)
[2021-09-11 06:51] LABS: Bedside Glucose 83 mg/dL (70-110)
[2021-09-11 06:52] LABS: Absolute Lymphocyte Count 1.07 X10^3/uL (0.83-4.51); Absolute Neutrophil Count 12.7 X10^3/uL (2.0-7.7); Basophil# 0.03 X10^3/uL; Basophil% 0.2 % (0-1); Eosinophil# 0.37 X10^3/uL; Eosinophils% 2.4 % (0-5); Hematocrit 24.7 % (37-47); Hemoglobin 7.2 g/dL (12.0-15.0); Lymphocyte # 1.07 X10^3/ul (0.83-4.51); Mean Corp Hgb Conc 29.1 g/dL (32-36); Mean Corpuscular Hgb 27.1 pg (27.0-32.0); Mean Corpuscular Volume 92.9 fL (81-99); Mean Platelet Vol. 10.1 fl (6.2-12.0); Monocyte# 0.52 X10^3/uL; Monocyte% 3.4 % (0-10); NRBC Flagged by Analyzer 0.2 % (0-5); Neutrophil # 12.71 X10^3/uL (2.7-7.7); Neutrophil % 82.8 % (47-70); POSITIVE COUNT YES; Platelet Count 270 K/mm3 (150-450); RBC Distribution Width CV 16.9 % (11.6-14.6); RBC Distribution Width SD 56.1 fl (35.1-43.9); Red Blood Count 2.66 M/mm3 (4.2-5.4); White Blood Count 15.3 K/mm3 (4.4-11.0)
[2021-09-11 07:03] LABS: Differential Indicated SCAN CRITERIA MET
--- NOTE | 2021-09-11 07:05 | NURSING ---
recheck blood sugar 90.
[2021-09-11 07:10] LABS: Bedside Glucose 90 mg/dL (70-110)
[2021-09-11 07:22] LABS: Anion Gap 5 (5-15); BUN 51 mg/dL (7-18); BUN/Creat Ratio 33.8 RATIO (10-20); Calcium,Total 8.2 mg/dL (8.5-10.1); Chloride 117 mmol/L (98-107); Creatinine, Serum 1.51 mg/dL (0.55-1.02); EST Glomerular Filtration Rate 38 mL/min (>60); Est Glom Filt Rate - Afr Amer 46 mL/min (>60); Estimated Creatinine Clearance 38.94 ml/min; Glucose 73 mg/dL (74-106); Potassium 4.6 mmol/L (3.5-5.1); Sodium Level 139 mmol/L (136-145)
[2021-09-11 07:25] LABS: Bedside Glucose 41 mg/dL (70-110)
[2021-09-11 07:25] LABS: Bedside Glucose 71 mg/dL (70-110)
[2021-09-11] MEDS: DAKIN'S SOL HALF STRENGTH (=0.25%) 1 APPLIC TOPICAL (09:31)
[2021-09-11] MEDS: Clopidogrel Bisulfate 75 MG Tablet PO (09:33)
[2021-09-11] MEDS: Carvedilol 6.25 MG Tablet PO ×2 (09:33→16:19)
[2021-09-11] MEDS: buPROPion (XL) 150 MG TABLET.XL PO (09:33)
[2021-09-11] MEDS: Magnesium Chloride 64 MG Delay Rel.Tablet 128 MG PO (09:33)
[2021-09-11] MEDS: Furosemide 40 MG Tablet PO (09:33)
[2021-09-11] MEDS: Cefepime HCl 2 GM in 0.9% NS 100 ML Minibag Q12 IV ×2 (09:33→21:56)
[2021-09-11] MEDS: Isosorbide Mononitrate 30 MG Tablet PO (09:33)
[2021-09-11 09:41] LABS: Bedside Glucose 148 mg/dL (70-110)
[2021-09-11] MEDS: hydrALAZINE 20 MG/ML Vial 5 MG IV (12:08)
[2021-09-11] MEDS: 0.9% Saline Lock 10 ML Syringe IV (12:09)
[2021-09-11 12:10] LABS: Bedside Glucose 182 mg/dL (70-110)
--- NOTE | 2021-09-11 12:17 | CASEMGMT ---
Pt is active with [facility]. SStaten RN CM
--- NOTE | 2021-09-11 13:03 | PN.HOSP_ITS ---
Documented by User: BRIAN Fitzgerald 09/11/21 13:06 Subjective Subjective Patient seen and examined. Patient lying in bed sleeping. Per KELSIE Maria patient had a low blood sugar this morning. Patient states that she knew her blood sugar was low upon waking due to feeling crappy. Patient otherwise de nies complaints at this time. Objective Data Objective Data Vital Signs: Vital Signs Temp Pulse Resp BP Pulse Ox 98.1 F 97 18 171/80 H 98 09/11/21 10:44 09/11/21 12:08 09/11/21 10:44 09/11/21 12:08 09/11/21 10:44 Oxygen Delivery Method Room Air Weight: 243 lb 2.718 oz Body Mass Index (BMI) 39.2 Intake & Output: Intake and Output for Last 24 Hours 09/09/21 09/10/21 09/11/21 23:59 23:59 23:59 Intake Total 680 / 680 2245.0 / 2245.0 1455 / 1455 Output Total 1775 / 1775 200 / 200 Balance -1095 / -1095 2045.0 / 2045.0 1455 / 1455 Lab / Micro Data Result Diagrams: 09/11/21 06:40 09/11/21 06:40 Labs: Laboratory Results - last 24 hr 09/10/21 16:45: POC Glucose 92 09/10/21 21:43: POC Glucose 123 H 09/11/21 05:32: POC Glucose 41 L* 09/11/21 05:46: POC Glucose 71 09/11/21 06:03: POC Glucose 55 L 09/11/21 06:21: POC Glucose 83 09/11/21 06:40: WBC 15.3 H, RBC 2.66 L, Hgb 7.2 L, Hct 24.7 L, MCV 92.9, MCH 27.1, MCHC 29.1 L D, RDW Std Deviation 56.1 H, RDW Coeff of Fior 16.9 H, Plt Count 270, MPV 10.1, Immature Gran % (Auto) 4.200 H, Neut % (Auto) 82.8 H, Lymph % (Auto) 7.0 L, [place] % (Auto) 3.4, Eos % (Auto) 2.4, Baso % (Auto) 0.2, Absolute Neuts (auto) 12.7 H, Absolute Lymphs (auto) 1.07, Nucleated RBC % 0.2 09/11/21 06:40: Sodium 139, Potassium 4.6, Chloride 117 H, Carbon Dioxide 17.0 L , Anion Gap 5, BUN 51 H, Creatinine 1.51 H, Estim Creat Clear Calc 38.94, Est GFR (MDRD) Af Amer 46 L, Est GFR (MDRD) Non-Af 38 L, BUN/Creatinine Ratio 33.8 H , Glucose 73 L, Calcium 8.2 L 09/11/21 06:46: POC Glucose 80 09/11/21 07:05: POC Glucose 90 09/11/21 09:29: POC Glucose 148 H 09/11/21 11:20: POC Glucose 182 H Physical Exam Const alert, oriented x3 and no apparent distress HEENT head/scalp atraumatic Eyes conjunctivae normal and no scleral icterus Neck full ROM and supple Resp normal respiratory effort Effort and Inspection: able to speak in complete sentences and symmetric chest movement Auscultation: diminished lung sounds Cardio regular rate, regular rhythm, S1 normal heart sound and S2 normal heart sound GI normal to inspection, nondistended, normoactive bowel sounds, soft to palpation and non-tender Extremity normal to inspection and full ROM Skin no rashes or lesions noted, no wounds and skin turgor normal Neuro oriented x3, moves all extremities, no focal motor deficits and no sensory deficits noted Sensorium / Orientation: awake and alert Psych affect normal Assessment & Plan Assessment/Plan (1) Diabetic foot infection: (2) Adult failure to thrive: (3) Type 2 diabetes mellitus with diabetic polyneuropathy: QUALIFIERS: Diabetes mellitus snf insulin 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 Patient was recently diagnosed with Covid and had been recently hospitalized. Patient's home health nurse was concerned that patient was not doing well at home. Patient admitted to hospital for coordination for SNF placement. 1. Adult failure to thrive -Patient has recent COVID-19 infection as well as bilateral diabetic foot infection which is contributing to her weakness and inability to care for herself -Case management consulted for coordination for SNF placement -PT and OT following 2. COVID-19 -Patient taken out of isolation today -Pulse ox stable on room air 3. Uncontrolled hypertension -Improved, blood pressure reduced from initial presentation -Continue carvedilol, furosemide, isosorbide. -Vital signs per protocol, currently stable 4. Diabetic foot ulcer -Dr. Edgar following -Wound cultures positive for Pseudomonas, Enterobacter, Klebsiella. Continue IV cefepime -Debridement performed on 09/07/2021 5. Chronic kidney disease stage III -Kidney function at baseline 6. Coronary artery disease -Continue dual antiplatelet therapy and statin 7. Chronic anemia -Hemoglobin 7.7, consistent with patient's baseline over the past 2 months. -Daily CBC ordered if hemoglobin drops below 7 we will plan to transfuse 8. Diabetes mellitus type 2 -Patient noted to have low blood sugar this a.m. Lantus decreased from 35 units twice daily to 30 units twice daily and nursing communication entered for patient to have a snack before bedtime to prevent low a.m. blood sugars -Continue AC at bedtime blood sugars with sliding scale insulin as well as prandial dosing of. DVT prophylaxis-SCDs This patient was seen by BRIAN Fitzgerald under the supervision of Dr. Yatse. Documented by User: Dr. Rodney Yates MD 09/11/21 13:10 Objective Data Lab / Micro Data Result Diagrams: 09/11/21 06:40 09/11/21 06:40 Assessment & Plan Addt'l Comments This patient was seen in conjunction with BRIAN Fitzgerald . I have independently interviewed and examined the patient and reviewed pertinent historical, laboratory, and other data. Please refer to BRIAN Fitzgerald note for details of this patient's presentation, findings, and recommendations. I have reviewed BRIAN Fitzgerald note and concur with documented find ings. In brief, patient is a XX -year-oldM/F admitted with XXXXXXX Patient is a 56-year-old lady with multiple comorbidities with recent hospitalization for COVID 19 and diabetic foot infection presented with elevated blood pressure 09/11/2021; patient hemoglobin down to 7.2. Plan is to initiate parenteral iron. Awaiting insurance precertification prior to transfer to nursing home facility Physical Examination: GENERAL: cooperative HEENT: Atraumatic; EYES; Anicteric, Normal Conjunctiva NECK; supple, normal thyroid, RESPIRATORY: Diminished to auscultation CARDIOVASCULAR: Regular S1 S2, GI: soft, normoactive bowel sounds, : No Renal angle tenderness; EXTREMITIES: Both feet in surgical dressing NEURO: Awake; no lateralizing signs. SKIN: No Rash PSYCH; Flat affect Assessment: 1. Acute hypertensive urgency 2. Adult failure to thrive 3. Recent COVID-19 infection 4. Diabetic foot ulcer (polymicrobial) 5. Chronic kidney disease stage III 6. Coronary artery disease-With PCI to mid LAD lesion with a DARA on 01/01/21. 7. Dyslipidemia 8. Anemia 9. Diabetes mellitus type II 10. Depression with anxiety 11. DVT prophylaxis Recommendations: 1. I have discussed the results of my overview and impressions with the patient 2. Options for management were reviewed
[2021-09-11] MEDS: Pramipexole Di-HCl 1 MG Tablet 1.5 MG PO ×2 (13:40→21:45)
[2021-09-11] MEDS: Insulin Lispro 100 UNIT/ML INSULN.PEN SC ×3 (13:42→18:22)
--- NOTE | 2021-09-11 13:46 | NURSING ---
Read and reviewed SN documentation
--- NOTE | 2021-09-11 14:15 | CASEMGMT ---
This am SW faxed patient's PT/OT evals and notes from her recent visits. Later this afternoon when PT/OT saw patient SW then faxed those notes. Plan: d/c to [facility] under skilled level of care on a convalescent stay. Pending pre-cert. Kamilla Tinsley [employer]ACE STARTER FLEX
[2021-09-11] MEDS: Juven (unflavored) Packet 1 PACKET PO (16:19)
[2021-09-11 16:26] LABS: Bedside Glucose 197 mg/dL (70-110)
[2021-09-11] MEDS: cycloBENZAPRine HCl 5 MG TABLET PO (21:45)
[2021-09-11] MEDS: Atorvastatin Calcium 80 MG Tablet PO (21:45)
[2021-09-11] MEDS: Paroxetine 20 MG Tablet PO (21:45)
[2021-09-11 22:00] LABS: Bedside Glucose 66 mg/dL (70-110)
[2021-09-11 22:56] LABS: Bedside Glucose 74 mg/dL (70-110)
[2021-09-12] VITALS (12 sets, daily range): BP systolic 150–168; BP diastolic 71–85; PULSE 91–101; RESP 18; TEMP 36.8–36.9; O2SAT 97–98
[2021-09-12] MEDS: hydrALAZINE 20 MG/ML Vial 5 MG IV (04:06)
[2021-09-12] MEDS: 0.9% Saline Lock 10 ML Syringe IV ×4 (04:11→22:04)
[2021-09-12] MEDS: oxyCODONE 5 MG Tablet PO ×3 (06:11→21:52)
[2021-09-12] MEDS: Ondansetron 4 MG/2 ML Vial IV (06:14)
--- NOTE | 2021-09-12 06:21 | NURSING ---
Patient BS 66 last night given orange juice and cookie. Rechecked BS 74
[2021-09-12 07:05] LABS: Bedside Glucose 82 mg/dL (70-110)
[2021-09-12 07:05] LABS: Bedside Glucose 62 mg/dL (70-110)
[2021-09-12 07:19] LABS: Absolute Lymphocyte Count 1.11 X10^3/uL (0.83-4.51); Basophil# 0.03 X10^3/uL; Basophil% 0.2 % (0-1); Eosinophil# 0.32 X10^3/uL; Eosinophils% 2.1 % (0-5); Hematocrit 23.1 % (37-47); Hemoglobin 7.1 g/dL (12.0-15.0); Lymphocyte # 1.11 X10^3/ul (0.83-4.51); Lymphocyte % 7.2 % (19-41); Mean Corp Hgb Conc 30.7 g/dL (32-36); Mean Corpuscular Hgb 26.9 pg (27.0-32.0); Mean Corpuscular Volume 87.5 fL (81-99); Mean Platelet Vol. 10.3 fl (6.2-12.0); Monocyte# 0.52 X10^3/uL; Monocyte% 3.4 % (0-10); NRBC Flagged by Analyzer 0 % (0-5); Neutrophil # 12.95 X10^3/uL (2.7-7.7); Neutrophil % 84.2 % (47-70); Platelet Count 316 K/mm3 (150-450); RBC Distribution Width CV 16.6 % (11.6-14.6); RBC Distribution Width SD 52.4 fl (35.1-43.9); Red Blood Count 2.64 M/mm3 (4.2-5.4); White Blood Count 15.4 K/mm3 (4.4-11.0)
[2021-09-12 07:34] LABS: Anion Gap 8 (5-15); BUN 44 mg/dL (7-18); BUN/Creat Ratio 28.8 RATIO (10-20); Chloride 114 mmol/L (98-107); Creatinine, Serum 1.53 mg/dL (0.55-1.02); EST Glomerular Filtration Rate 37 mL/min (>60); Est Glom Filt Rate - Afr Amer 45 mL/min (>60); Estimated Creatinine Clearance 38.44 ml/min; Glucose 47 mg/dL (74-106); Sodium Level 142 mmol/L (136-145)
[2021-09-12] MEDS: Pramipexole Di-HCl 1 MG Tablet 1.5 MG PO ×2 (09:31→21:53)
[2021-09-12] MEDS: Magnesium Chloride 64 MG Delay Rel.Tablet 128 MG PO (09:32)
[2021-09-12] MEDS: Carvedilol 6.25 MG Tablet PO ×2 (09:32→16:30)
[2021-09-12] MEDS: Furosemide 40 MG Tablet PO (09:34)
[2021-09-12] MEDS: Isosorbide Mononitrate 30 MG Tablet PO (09:34)
[2021-09-12] MEDS: Clopidogrel Bisulfate 75 MG Tablet PO (09:34)
[2021-09-12] MEDS: buPROPion (XL) 150 MG TABLET.XL PO (09:34)
[2021-09-12] MEDS: DAKIN'S SOL HALF STRENGTH (=0.25%) 1 APPLIC TOPICAL (09:36)
[2021-09-12] MEDS: Cefepime HCl 2 GM in 0.9% NS 100 ML Minibag Q12 IV ×2 (09:38→22:04)
[2021-09-12 11:16] LABS: Bedside Glucose 115 mg/dL (70-110)
--- NOTE | 2021-09-12 12:07 | PCM.PN.HOSP ---
Documented by User: RONNI FitzgeraldC 09/12/21 12:19 Subjective Subjective Patient seen and examined. Patient lying in bed no distress noted. Patient denies needs at this time. Patient requesting something besides peanut butter for a nighttime snack. Nursing staff notified. Objective Data Objective Data Vital Signs: Vital Signs Temp Pulse Resp BP Pulse Ox 98.5 F 93 18 159/78 H 97 09/12/21 09:30 09/12/21 11:00 09/12/21 09:30 09/12/21 09:30 09/12/21 09:30 Oxygen Delivery Method Room Air Weight: 243 lb 2.718 oz Body Mass Index (BMI) 39.2 Intake & Output: Intake and Output for Last 24 Hours 09/10/21 09/11/21 09/12/21 23:59 23:59 23:59 Intake Total 2245.0 / 2245.0 3035 / 3035 340 / 340 Output Total 200 / 200 Balance 2045.0 / 2045.0 3035 / 3035 340 / 340 Lab / Micro Data Result Diagrams: 09/12/21 05:48 09/12/21 05:48 Labs: Laboratory Results - last 24 hr 09/11/21 11:20: POC Glucose 182 H 09/11/21 16:16: POC Glucose 197 H 09/11/21 21:38: POC Glucose 66 L 09/11/21 22:33: POC Glucose 74 09/12/21 05:48: WBC 15.4 H, RBC 2.64 L, Hgb 7.1 L, Hct 23.1 L, MCV 87.5 D, MCH 26.9 L, MCHC 30.7 L D, RDW Std Deviation 52.4 H, RDW Coeff of Fior 16.6 H, Plt Count 316, MPV 10.3, Immature Gran % (Auto) 2.900 H, Neut % (Auto) 84.2 H, Lymph % (Auto) 7.2 L, [place] % (Auto) 3.4, Eos % (Auto) 2.1, Baso % (Auto) 0.2, Absolute Neuts (auto) 13.0 H, Absolute Lymphs (auto) 1.11, Nucleated RBC % 0 09/12/21 05:48: Sodium 142, Potassium 5.0, Chloride 114 H, Carbon Dioxide 20.0 L, Anion Gap 8, BUN 44 H, Creatinine 1.53 H, Estim Creat Clear Calc 38.44, Est GFR (MDRD) Af Amer 45 L, Est GFR (MDRD) Non-Af 37 L, BUN/Creatinine Ratio 28.8 H, Glucose 47 L, Calcium 8.0 L 09/12/21 06:13: POC Glucose 62 L 09/12/21 07:02: POC Glucose 82 09/12/21 11:06: POC Glucose 115 H Physical Exam Const alert, oriented x3 and no apparent distress HEENT head/scalp atraumatic Eyes conjunctivae normal and no scleral icterus Neck full ROM and supple Resp normal respiratory effort Effort and Inspection: able to speak in complete sentences and symmetric chest movement Auscultation: diminished lung sounds Cardio regular rate, regular rhythm, S1 normal heart sound and S2 normal heart sound GI normal to inspection, nondistended, normoactive bowel sounds, soft to palpation and non-tender Extremity normal to inspection and full ROM Skin no rashes or lesions noted, no wounds and skin turgor normal Neuro oriented x3, moves all extremities, no focal motor deficits and no sensory deficits noted Sensorium / Orientation: awake and alert Psych affect normal Assessment & Plan Assessment/Plan (1) Diabetic foot infection: (2) Adult failure to thrive: (3) Type 2 diabetes mellitus with diabetic polyneuropathy: QUALIFIERS: Diabetes mellitus half-way insulin use: with half-way use Qualified Code(s): E11.42 - Type 2 diabetes mellitus with diabetic polyneuropathy; Z79.4 - technician terminal and repeater (current) use of insulin (4) COVID-19: PLAN: Patient is a 56-year-old female who was admitted to the hospital for diabetic foot infection and debility. Patient was recently diagnosed with Covid and had been recently hospitalized. Patient's home health nurse was concerned that patient was not doing well at home. Patient admitted to hospital for coordination for SNF placement. 1. Adult failure to thrive -Patient has recent COVID-19 infection as well as bilateral diabetic foot infection which is contributing to her weakness and inability to care for herself -Case management consulted for coordination for SNF placement -PT and OT following 2. COVID-19 -Resolved 3. Uncontrolled hypertension -Improved, blood pressure reduced from initial presentation -Continue carvedilol, furosemide, isosorbide. -Vital signs per protocol, currently stable 4. Diabetic foot ulcer -Dr. Edgar following -Wound cultures positive for Pseudomonas, Enterobacter, Klebsiella. Continue IV cefepime -Debridement performed on 09/07/2021 5. Chronic kidney disease stage III -Kidney function at baseline 6. Coronary artery disease -Continue dual antiplatelet therapy and statin 7. Chronic anemia -Hemoglobin 7.7, consistent with patient's baseline over the past 2 months. -Daily CBC ordered if hemoglobin drops below 7 we will plan to transfuse 8. Diabetes mellitus type 2 -Patient hypoglycemic overnight again last night. We will hold all insulin this a.m. Encouraged patient to eat nighttime snack to avoid hypoglycemia overnight due to patient's continued increased blood sugars during the day when she is eating. Patient verbalized understanding states that she wants something other than peanut butter and crackers. Nursing staff notified patient's preference. -Continue AC at bedtime blood sugars with sliding scale insulin as well as prandial dosing of Humalog DVT prophylaxis-SCDs This patient was seen by BRIAN Fitzgerald under the supervision of Dr. Yates. Documented by User: Dr. Rodney Yates MD 09/12/21 13:33 Objective Data Lab / Micro Data Result Diagrams: 09/12/21 05:48 09/12/21 05:48 Assessment & Plan Addt'l Comments This patient was seen in conjunction with BRIAN Fitzgerald . I have independently interviewed and examined the patient and reviewed pertinent historical, laboratory, and other data. Please refer to BRIAN Fitzgerald note for details of this patient's presentation, findings, and recommendations. I have reviewed BRIAN Fitzgerald note and concur with documented findings. In brief, patient is a [age] -year-oldM/F admitted with XXXXXXX Patient is a 56-year-old lady with multiple comorbidities with recent hospitalization for COVID 19 and diabetic foot infection presented with elevated blood pressure 09/11/2021; patient hemoglobin down to 7.2. Plan is to initiate parenteral iron. Awaiting insurance precertification prior to transfer to [facility] 09/09/2021; hemoglobin down to 7.1 otherwise no change in patient clinical condition. Insurance precertification still pending Physical Examination: GENERAL: cooperative HEENT: Atraumatic; EYES; Anicteric, Normal Conjunctiva NECK; supple, normal thyroid, RESPIRATORY: Diminished to auscultation CARDIOVASCULAR: Regular S1 S2, GI: soft, normoactive bowel sounds, : No Renal angle tenderness; EXTREMITIES: Both feet in surgical dressing NEURO: Awake; no lateralizing signs. SKIN: No Rash PSYCH; Flat affect Assessment: 1. Acute hypertensive urgency 2. Adult failure to thrive 3. Recent COVID-19 infection 4. Diabetic foot ulcer (polymicrobial) 5. Chronic kidney disease stage III 6. Coronary artery disease-With PCI to mid LAD lesion with a DARA on 01/01/21. 7. Dyslipidemia 8. Anemia 9. Diabetes mellitus type II 10. Depression with anxiety 11. DVT prophylaxis Recommendations: 1. I have discussed the results of my overview and impressions with the patient 2. Options for management were reviewed Charges/Coding Visit Charges Inpatient E&M: 87555 Subs Hosp L2
[2021-09-12] MEDS: Insulin Lispro 100 UNIT/ML INSULN.PEN SC ×2 (12:58→22:05)
[2021-09-12 16:25] LABS: Bedside Glucose 88 mg/dL (70-110)
[2021-09-12] MEDS: Atorvastatin Calcium 80 MG Tablet PO (21:53)
[2021-09-12] MEDS: cycloBENZAPRine HCl 5 MG TABLET PO (21:54)
[2021-09-12] MEDS: Paroxetine 20 MG Tablet PO (21:54)
[2021-09-12 22:51] LABS: Bedside Glucose 157 mg/dL (70-110)
[2021-09-13] VITALS (14 sets, daily range): BP systolic 155–179; BP diastolic 77–111; PULSE 84–107; RESP 16–18; TEMP 36.5–37.2; O2SAT 94–98
[2021-09-13] MEDS: oxyCODONE 5 MG Tablet PO ×3 (06:43→21:56)
[2021-09-13 06:46] LABS: Absolute Lymphocyte Count 1.01 X10^3/uL (0.83-4.51); Absolute Neutrophil Count 12.3 X10^3/uL (2.0-7.7); Basophil# 0.02 X10^3/uL; Basophil% 0.1 % (0-1); Eosinophil# 0.26 X10^3/uL; Eosinophils% 1.8 % (0-5); Hematocrit 22.5 % (37-47); Lymphocyte # 1.01 X10^3/ul (0.83-4.51); Mean Corp Hgb Conc 31.1 g/dL (32-36); Mean Corpuscular Hgb 27.1 pg (27.0-32.0); Mean Corpuscular Volume 87.2 fL (81-99); Mean Platelet Vol. 10.5 fl (6.2-12.0); Monocyte# 0.58 X10^3/uL; NRBC Flagged by Analyzer 0 % (0-5); Neutrophil # 12.32 X10^3/uL (2.7-7.7); Neutrophil % 85.4 % (47-70); Platelet Count 300 K/mm3 (150-450); RBC Distribution Width CV 16.5 % (11.6-14.6); RBC Distribution Width SD 51.7 fl (35.1-43.9); Red Blood Count 2.58 M/mm3 (4.2-5.4); White Blood Count 14.4 K/mm3 (4.4-11.0)
[2021-09-13 06:51] LABS: Bedside Glucose 145 mg/dL (70-110)
[2021-09-13 07:16] LABS: Anion Gap 7 (5-15); BUN 43 mg/dL (7-18); BUN/Creat Ratio 25.9 RATIO (10-20); Calcium,Total 8.1 mg/dL (8.5-10.1); Chloride 110 mmol/L (98-107); Creatinine, Serum 1.66 mg/dL (0.55-1.02); EST Glomerular Filtration Rate 34 mL/min (>60); Est Glom Filt Rate - Afr Amer 41 mL/min (>60); Estimated Creatinine Clearance 35.43 ml/min; Glucose 131 mg/dL (74-106); Potassium 5.2 mmol/L (3.5-5.1); Sodium Level 138 mmol/L (136-145)
[2021-09-13] MEDS: Clopidogrel Bisulfate 75 MG Tablet PO (09:04)
[2021-09-13] MEDS: Cefepime HCl 2 GM in 0.9% NS 100 ML Minibag Q12 IV ×2 (09:04→21:55)
[2021-09-13] MEDS: 0.9% Saline Lock 10 ML Syringe IV ×3 (09:04→21:59)
[2021-09-13] MEDS: Carvedilol 6.25 MG Tablet PO ×2 (09:04→17:01)
[2021-09-13] MEDS: Magnesium Chloride 64 MG Delay Rel.Tablet 128 MG PO (09:04)
[2021-09-13] MEDS: Isosorbide Mononitrate 30 MG Tablet PO (09:05)
[2021-09-13] MEDS: Pramipexole Di-HCl 1 MG Tablet 1.5 MG PO ×2 (09:05→21:56)
[2021-09-13] MEDS: Furosemide 40 MG Tablet PO (09:05)
[2021-09-13] MEDS: buPROPion (XL) 150 MG TABLET.XL PO (09:05)
[2021-09-13] MEDS: DAKIN'S SOL HALF STRENGTH (=0.25%) 1 APPLIC TOPICAL (09:06)
--- NOTE | 2021-09-13 09:54 | PN.HOSP_ITS ---
Documented by User: BRIAN Fitzgerald 09/13/21 10:01 Subjective Subjective Patient seen and examined. Patient in bed no distress noted. Labs reviewed. Patient did not have any low blood sugars overnight. Patient denies current complaints Objective Data Objective Data Vital Signs: Vital Signs Temp Pulse Resp BP Pulse Ox 98.9 F 93 18 179/90 H 98 09/13/21 09:13 09/13/21 09:13 09/13/21 09:13 09/13/21 09:13 09/13/21 09:13 Oxygen Delivery Method Room Air Weight: 243 lb 2.718 oz Body Mass Index (BMI) 39.2 Intake & Output: Intake and Output for Last 24 Hours 09/11/21 09/12/21 09/13/21 23:59 23:59 23:59 Intake Total 3035 / 3035 680 / 680 Balance 3035 / 3035 680 / 680 Lab / Micro Data Result Diagrams: 09/13/21 05:15 09/13/21 05:15 Labs: Laboratory Results - last 24 hr 09/12/21 11:06: POC Glucose 115 H 09/12/21 16:21: POC Glucose 88 09/12/21 21:52: POC Glucose 157 H 09/13/21 05:15: WBC 14.4 H, RBC 2.58 L, Hgb 7.0 L, Hct 22.5 L, MCV 87.2, MCH 27.1, MCHC 31.1 L, RDW Std Deviation 51.7 H, RDW Coeff of Fior 16.5 H, Plt Count 300, MPV 10.5, Immature Gran % (Auto) 1.700 H, Neut % (Auto) 85.4 H, Lymph % (Auto) 7.0 L, [place] % (Auto) 4.0, Eos % (Auto) 1.8, Baso % (Auto) 0.1, Absolute Neuts (auto) 12.3 H, Absolute Lymphs (auto) 1.01, Nucleated RBC % 0 09/13/21 05:15: Sodium 138, Potassium 5.2 H, Chloride 110 H, Carbon Dioxide 21.0, Anion Gap 7, BUN 43 H, Creatinine 1.66 H, Estim Creat Clear Calc 35.43, Est GFR (MDRD) Af Amer 41 L, Est GFR (MDRD) Non-Af 34 L, BUN/Creatinine Ratio 25.9 H, Glucose 131 H, Calcium 8.1 L 09/13/21 06:43: POC Glucose 145 H Physical Exam Const alert, oriented x3 and no apparent distress HEENT head/scalp atraumatic Eyes conjunctivae normal and no scleral icterus Neck full ROM and supple Resp normal respiratory effort Effort and Inspection: able to speak in complete sentences and symmetric chest movement Auscultation: diminished lung sounds Cardio regular rate, regular rhythm, S1 normal heart sound and S2 normal heart sound GI normal to inspection, nondistended, normoactive bowel sounds, soft to palpation and non-tender Extremity normal to inspection and full ROM Skin no rashes or lesions noted, no wounds and skin turgor normal Neuro oriented x3, moves all extremities, no focal motor deficits and no sensory deficits noted Sensorium / Orientation: awake and alert Psych affect normal Assessment & Plan Assessment/Plan (1) Diabetic foot infection: (2) Adult failure to thrive: (3) Type 2 diabetes mellitus with diabetic polyneuropathy: QUALIFIERS: Diabetes mellitus care home insulin use: with care home use Qualified Code(s): E11.42 - Type 2 diabetes mellitus with diabetic polyneuropathy; Z79.4 - snf (current) use of insulin (4) COVID-19: PLAN: Patient is a 56-year-old female who was admitted to the hospital for diabetic foot infection and debility. Patient was recently diagnosed with Covid and had been recently hospitalized. Patient's home health nurse was concerned that patient was not doing well at home. Patient admitted to hospital for coordination for SNF placement. 1. Adult failure to thrive -Patient has recent COVID-19 infection as well as bilateral diabetic foot infection which is contributing to her weakness and inability to care for herself -Case management consulted for coordination for SNF placement -PT and OT following 2. COVID-19 -Resolved 3. Uncontrolled hypertension -Improved, blood pressure reduced from initial presentation -Continue carvedilol, furosemide, isosorbide. -Vital signs per protocol, currently stable 4. Diabetic foot ulcer -Dr. Edgar following -Wound cultures positive for Pseudomonas, Enterobacter, Klebsiella. Continue IV cefepime. -Debridement performed on 09/07/2021 5. Chronic kidney disease stage III -Kidney function at baseline 6. Coronary artery disease -Continue dual antiplatelet therapy and statin 7. Chronic anemia -Hemoglobin 7.0, consistent with patient's baseline over the past 2 months. -Daily CBC ordered if hemoglobin drops below 7 we will plan to transfuse 8. Diabetes mellitus type 2 -Patient was not hypoglycemic overnight. Patient did take a bedtime snack. -Continue AC at bedtime blood sugars with sliding scale insulin as well as prandial dosing of Humalog DVT prophylaxis-SCDs This patient was seen by BRIAN Fitzgerald under the supervision of Dr. Yates. Documented by User: Dr. Rodney Yates MD 09/13/21 10:07 Objective Data Lab / Micro Data Result Diagrams: 09/13/21 05:15 09/13/21 05:15 Assessment & Plan Addt'l Comments This patient was seen in conjunction with BRIAN Fitzgerald . I have independently interviewed and examined the patient and reviewed pertinent historical, laboratory, and other data. Please refer to RBIAN Fitzgerald note for details of this patient's presentation, findings, and recommendations. I have reviewed BRIAN Fitzgerald note and concur with documented findings. In brief, Patient is a 56-year-old lady with multiple comorbidities with recent hospitalization for COVID 19 and diabetic foot infection presented with elevated blood pressure 09/11/2021; patient hemoglobin down to 7.2. Plan is to initiate parenteral iron. Awaiting insurance precertification [facility]; hemoglobin down to 7.1 otherwise no change in patient clinical condition. Insurance precertification still pending 09/09/2021. With patient hemoglobin dropping to 7 and order was given for patient to be transfused with 1 unit PRBC Physical Examination: GENERAL: cooperative HEENT: Atraumatic; EYES; Anicteric, Normal Conjunctiva NECK; supple, normal thyroid, RESPIRATORY: Diminished to auscultation CARDIOVASCULAR: Regular S1 S2, GI: soft, normoactive bowel sounds, : No Renal angle tenderness; EXTREMITIES: Both feet in surgical dressing NEURO: Awake; no lateralizing signs. SKIN: No Rash PSYCH; Flat affect Assessment: 1. Acute hypertensive urgency 2. Adult failure to thrive 3. Recent COVID-19 infection 4. Diabetic foot ulcer (polymicrobial) 5. Chronic kidney disease stage III 6. Coronary artery disease-With PCI to mid LAD lesion with a DARA on 01/01/21. 7. Dyslipidemia 8. Anemia 9. Diabetes mellitus type II 10. Depression with anxiety 11. DVT prophylaxis Recommendations: 1. I have discussed the results of my overview and impressions with the patient 2. Options for management were reviewed Charges/Coding Visit Charges Inpatient E&M: 31339 Subs Hosp L2
[2021-09-13 11:31] LABS: Bedside Glucose 151 mg/dL (70-110)
[2021-09-13] MEDS: Acetaminophen 325 MG Tablet 650 MG PO (12:02)
[2021-09-13] MEDS: hydrALAZINE 20 MG/ML Vial 5 MG IV (16:18)
[2021-09-13] MEDS: Insulin Lispro 100 UNIT/ML INSULN.PEN SC ×3 (17:00→22:07)
[2021-09-13 17:06] LABS: Bedside Glucose 184 mg/dL (70-110)
[2021-09-13] MEDS: Atorvastatin Calcium 80 MG Tablet PO (21:56)
[2021-09-13] MEDS: cycloBENZAPRine HCl 5 MG TABLET PO (21:56)
[2021-09-13] MEDS: Paroxetine 20 MG Tablet PO (21:57)
[2021-09-13 22:20] LABS: Bedside Glucose 178 mg/dL (70-110)
[2021-09-14] VITALS (9 sets, daily range): BP systolic 146–180; BP diastolic 77–100; PULSE 82–99; RESP 16; TEMP 36.8–36.9; O2SAT 92–97
[2021-09-14] MEDS: Nystatin Powder 15gm Bottle 1 APPLIC TOPICAL ×3 (00:03→14:21)
[2021-09-14] MEDS: hydrALAZINE 20 MG/ML Vial 5 MG IV (03:59)
[2021-09-14] MEDS: 0.9% Saline Lock 10 ML Syringe IV ×2 (03:59→05:46)
[2021-09-14] MEDS: Ondansetron 4 MG/2 ML Vial IV (05:45)
[2021-09-14 06:41] LABS: Absolute Lymphocyte Count 0.89 X10^3/uL (0.83-4.51); Absolute Neutrophil Count 9.8 X10^3/uL (2.0-7.7); Basophil# 0.02 X10^3/uL; Basophil% 0.2 % (0-1); Eosinophil# 0.24 X10^3/uL; Eosinophils% 2.1 % (0-5); Hematocrit 26.2 % (37-47); Hemoglobin 8.5 g/dL (12.0-15.0); Lymphocyte # 0.89 X10^3/ul (0.83-4.51); Lymphocyte % 7.7 % (19-41); Mean Corp Hgb Conc 32.4 g/dL (32-36); Mean Corpuscular Hgb 27.4 pg (27.0-32.0); Mean Corpuscular Volume 84.5 fL (81-99); Mean Platelet Vol. 9.7 fl (6.2-12.0); Monocyte# 0.57 X10^3/uL; Monocyte% 4.9 % (0-10); NRBC Flagged by Analyzer 0 % (0-5); Neutrophil # 9.76 X10^3/uL (2.7-7.7); Neutrophil % 84.2 % (47-70); Platelet Count 258 K/mm3 (150-450); RBC Distribution Width CV 15.9 % (11.6-14.6); RBC Distribution Width SD 48.6 fl (35.1-43.9); White Blood Count 11.6 K/mm3 (4.4-11.0)
[2021-09-14] MEDS: oxyCODONE 5 MG Tablet PO ×2 (06:50→14:21)
[2021-09-14 07:07] LABS: Anion Gap 6 (5-15); BUN 36 mg/dL (7-18); BUN/Creat Ratio 20.9 RATIO (10-20); Calcium,Total 8.6 mg/dL (8.5-10.1); Chloride 110 mmol/L (98-107); Creatinine, Serum 1.72 mg/dL (0.55-1.02); EST Glomerular Filtration Rate 33 mL/min (>60); Est Glom Filt Rate - Afr Amer 39 mL/min (>60); Estimated Creatinine Clearance 34.19 ml/min; Glucose 169 mg/dL (74-106); Potassium 4.7 mmol/L (3.5-5.1); Sodium Level 141 mmol/L (136-145)
--- NOTE | 2021-09-14 07:09 | PCM.PROGNOTE ---
Subjective Subjective Patient was seen this morning for follow up on bilateral foot ulcerations. She is resting in bed, no complaints. No fevers. Last WBC was 11.6 Objective Data Objective Data Vital Signs: Vital Signs Temp Pulse Resp BP Pulse Ox 98.4 F 93 16 180/100 H 95 09/14/21 03:35 09/14/21 03:59 09/14/21 03:35 09/14/21 03:59 09/14/21 03:35 Oxygen Delivery Method Room Air Weight: 110.3 kg Body Mass Index (BMI) 39.2 Intake & Output: Intake and Output for Last 24 Hours 09/12/21 09/13/21 09/14/21 23:59 23:59 23:59 Intake Total 680 / 680 1080 / 1080 Output Total 250 / 250 Balance 680 / 680 830 / 830 Lab / Micro Data Result Diagrams: 09/14/21 06:17 09/14/21 06:12 Labs: Laboratory Results - last 24 hr 09/13/21 05:15: Sodium 138, Potassium 5.2 H, Chloride 110 H, Carbon Dioxide 21.0, Anion Gap 7, BUN 43 H, Creatinine 1.66 H, Estim Creat Clear Calc 35.43, Est GFR (MDRD) Af Amer 41 L, Est GFR (MDRD) Non-Af 34 L, BUN/Creatinine Ratio 25.9 H, Glucose 131 H, Calcium 8.1 L 09/13/21 10:20: Blood Type O POSITIVE, Antibody Screen NEGATIVE 09/13/21 10:20: Crossmatch See Detail 09/13/21 11:23: POC Glucose 151 H 09/13/21 16:58: POC Glucose 184 H 09/13/21 22:06: POC Glucose 178 H 09/14/21 06:12: Sodium 141, Potassium 4.7, Chloride 110 H, Carbon Dioxide 25.0, Anion Gap 6, BUN 36 H, Creatinine 1.72 H, Estim Creat Clear Calc 34.19, Est GFR (MDRD) Af Amer 39 L, Est GFR (MDRD) Non-Af 33 L, BUN/Creatinine Ratio 20.9 H, Glucose 169 H, Calcium 8.6 09/14/21 06:17: WBC 11.6 H, RBC 3.10 L, Hgb 8.5 L, Hct 26.2 L, MCV 84.5, MCH 27.4, MCHC 32.4, RDW Std Deviation 48.6 H, RDW Coeff of Fior 15.9 H, Plt Count 258, MPV 9.7, Immature Gran % (Auto) 0.900, Neut % (Auto) 84.2 H, Lymph % (Auto) 7.7 L, [place] % (Auto) 4.9, Eos % (Auto) 2.1, Baso % (Auto) 0.2, Absolute Neuts (auto) 9.8 H, Absolute Lymphs (auto) 0.89, Nucleated RBC % 0 Physical Exam Narrative General Skin Exam: atrophy and dry skin; Negative for ecchymosis, no erythema, no eschar, and no odor. no purulence, no streaking Plantar left foot ulceration: No exposed tendon or probe to bone. No maceration noted. There is no erythema or edema or malodor or purulence or other suggestion signs of infection. Some slight serosanguineous drainage noted. Ulcer healing. Tissues are healthy and viable - ulcer is down to subcutaneous tissue. Plantar right foot ulceration. No exposed tendon or probe to bone. No maceration noted. There is no erythema or edema or malodor or purulence or other suggestion signs of infection. Some slight serosanguineous drainage noted. Ulcer healing. Tissues are healthy and viable - ulcer is down to subcutaneous tissue. 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 Chronic charcot foot deformity noted bilaterally, no acute deformity. No gross laxity or crepitus with manipulation. Negative calf tenderness bilateral, no evidence of DVT bilateral. CFT < 2 seconds to all toes with no evidence of acute ischemia to foot bilateral. Chronic peripheral neuropathy bilateral foot. Assessment & Plan Assessment/Plan (1) Ulcer of left foot with fat layer exposed: (2) Chronic ulcer of right foot with necrosis of muscle: (3) Charcot's joint of right foot: (4) Charcot's joint of left foot: (5) Delayed wound healing: (6) Bacteremia: (7) Type 2 diabetes mellitus with diabetic polyneuropathy: QUALIFIERS: Diabetes mellitus termite treater helper insulin use: with prison use Qualified Code(s): E11.42 - Type 2 diabetes mellitus with diabetic polyneuropathy; Z79.4 - manager intermediate (current) use of insulin PLAN: I reviewed and discussed her case today. No local foot signs of infection noted. Foot ulcers are viable and healing, no debridement needed today. Her recent bacteremia with likely foot nidus as source is noted. Prior infection management from other admission is noted. Continue cefepime. Dressing: Change daily with [place]in wet-to-dry solution bilateral Offload: Nonweightbearing bilateral recommended. Toe-touch for transfers only. Use assistive device. Edema: Bilateral [place] wraps. Patient planning to be discharged to nursing facility, possibly today. Patient to follow up at wound center either this week or next week, sooner if needed.
--- NOTE | 2021-09-14 07:25 | PCM.DC ---
Discharge Instructions Activity Weight Bearing Status: No weight bearing (Nonweightbearing bilateral foot recommended. Toe-touch for transfers only. Use assistive device.) Dressing / Incision Call your doctor if your incision/area has: Sudden Increased Bleeding and Foul Smelling Discharge Call your doctor if you observe: Fever of 101 or Higher, Shortness of breath, Chest pain, Calf discomfort and Uncontrolled pain Change Dressing in: 1 day (Bilateral foot ulcers wound care: Cleanse wounds with normal saline solution. Apply wet to dry gauze dakin's solution (half strength, 0.25%) to wounds, with overlying dry gauze, kerlix, abd pads and brando bandage. Change daily.) Follow Up Care Please Follow Up With: Lavern Edgar DPM When: This week or next week at wound center. Test Results: Test results from this visit will be discussed in further detail at your follow-up appointment, if applicable. Discharge Plan Admission Admit Date/Time: 09/09/21 11:49 Attending Provider: Annie Steven Primary Care Provider: Raúl Eric Consulting Providers: Lavern Edgar Discharge Orders/Prescriptions Prescriptions: No Action atorvastatin 80 mg tablet 80 mg PO QHS Qty: 90 RF: 3 insulin lispro 100 UNIT/ML insulin pen 20 unit SC TIDCM RF: 0 pramipexole 1 MG tablet 1.5 mg PO BID RF: 0 clopidogrel 75 MG tablet 75 mg PO DAILY Qty: 0 RF: 0 isosorbide mononitrate 30 mg tablet extended release 24 hr 30 mg PO DAILY RF: 0 paroxetine HCl 20 mg tablet 20 mg PO QHS RF: 0 oxycodone 5 mg tablet 5 mg PO BID PRN (Reason: Pain) RF: 0 benzonatate 100 mg Capsule 100 mg PO TID PRN PRN (Reason: Cough) RF: 0 cyclobenzaprine 5 mg Tablet 5 mg PO QHS RF: 0 bupropion HCl 150 mg PO.IVFORM DAILY RF: 0 furosemide 40 mg Tablet 40 mg PO DAILY RF: 0 Lantus Solostar U-100 Insulin 100 unit/mL (3 mL) Insulin Pen 35 unit SUBCUT BID RF: 0 Phenergan-Codeine 1 tsp PO/SL Q6H PRN PRN (Reason: Cough) RF: 0 cefepime 2 gram recon soln 2 g IV Q12H 35 Days Qty: 70 RF: 0 carvedilol [Coreg] 6.25 mg tablet 6.25 mg PO BID Qty: 60 RF: 0 magnesium oxide [MagOx] 400 mg (241.3 mg magnesium) tablet 400 mg PO DAILY Qty: 30 RF: 0 Referrals / Follow Up: Lavern Edgar DPM [STAFF PHYSICIAN] - Within 1 Week (Follow up at [facility]; call [phone].) Raúl Eric MD [Primary Care Provider] -
--- NOTE | 2021-09-14 07:26 | WOUNDNOTE ---
wound photo: left plantar foot
--- NOTE | 2021-09-14 07:26 | WOUNDNOTE ---
wound photo: right plantar foot
[2021-09-14] MEDS: Carvedilol 6.25 MG Tablet PO (07:57)
[2021-09-14] MEDS: Insulin Lispro 100 UNIT/ML INSULN.PEN SC ×4 (07:58→11:01)
[2021-09-14 08:10] LABS: Bedside Glucose 174 mg/dL (70-110)
--- NOTE | 2021-09-14 09:53 | CASEMGMT ---
LUCRETIA faxed updates to [facility]. LUCRETIA will call and check in with Cassie from [facility] regarding insurance authorization. Kamilla Tinsley MSW C[employer]IAN [employer]
[2021-09-14] MEDS: Isosorbide Mononitrate 30 MG Tablet PO (10:42)
[2021-09-14] MEDS: Pramipexole Di-HCl 1 MG Tablet 1.5 MG PO (10:42)
[2021-09-14] MEDS: Magnesium Chloride 64 MG Delay Rel.Tablet 128 MG PO (10:43)
[2021-09-14] MEDS: Furosemide 40 MG Tablet PO (10:43)
[2021-09-14] MEDS: buPROPion (XL) 150 MG TABLET.XL PO (10:43)
[2021-09-14] MEDS: Clopidogrel Bisulfate 75 MG Tablet PO (10:44)
[2021-09-14] MEDS: Cefepime HCl 2 GM in 0.9% NS 100 ML Minibag Q12 IV (10:55)
[2021-09-14] MEDS: DAKIN'S SOL HALF STRENGTH (=0.25%) 1 APPLIC TOPICAL (11:11)
[2021-09-14 11:20] LABS: Bedside Glucose 193 mg/dL (70-110)
--- NOTE | 2021-09-14 13:46 | TREXTCAR_ITS ---
Documented by User: BRIAN Fitzgerald 09/14/21 13:57 Diet 09/09/21 16:29 Diet: Consistent Carb - Calorie Controlled Food consistency:: Regular Liquid Consistency:: Regular/Thin Dietary Modifications:: Cardiac / Heart Healthy Sodium Restricted How many daily calories?: 1800 calorie Routine Orders/Code Status Enema Type: Fleetz Enema Frequency: Daily PRN Suppository Type: Dulcolax 10mg Suppository Frequency: Daily PRN Routine Lab Work: CBC (3 days) and BMP (3 days) Code Status: Full Code Wound(s) left plantar foot: Wound Type: Neuropathic/Diabetic Foot Ulcer Dressing Change: Dakins moistened gauze right plantar foot: Wound Type: Neuropathic/Diabetic Foot Ulcer Dressing Change: Dakins moistened gauze Suggestions for Active Care Change Position every (hours): 2 Times a day to sit in chair: 3 Therapies Weight Bearing: Toe-touch weight bearing Extremity Affected:: Bilateral Lower Physical Therapy: Eval and Treat Occupational Therapy: Eval and Treat Problem/Diagnosis (1) Ulcer of left foot with fat layer exposed: Status: Acute (2) Chronic ulcer of right foot with necrosis of muscle: Status: Chronic (3) Charcot's joint of right foot: Status: Acute (4) Charcot's joint of left foot: Status: Chronic (5) Delayed wound healing: Status: Chronic (6) Bacteremia: Status: Acute (7) Type 2 diabetes mellitus with diabetic polyneuropathy: Status: Acute Allergies/Procedures Done in Hospital Allergies oxycodone [From OxyContin] Allergy (Verified 09/09/21 09:50) feels like I'm drowning Penicillins Allergy (Verified 09/09/21 09:50) swelling in throat vancomycin Allergy (Verified 09/09/21 09:50) Itching metronidazole Adverse Reaction (Verified 09/09/21 09:50) Nausea Procedures: None, 2-D Echocardiogram and EKG Type of Care/Length of Stay Estimated LOS: Convalescent Care Less Than 30 days Type of Care Needed: Skilled Rehab Potential: Fair Prognosis: Fair Additional Orders/Day of Discharge Day of Discharge: 09/14/21 Dietary and Speech Recommendations Dietitian Recommendations/Changes: Will change diet to 1800 calorie; consistent carbohydrate; cardiac/sodium-restricted. Will add Ted BID for wound healing and defer all other PO nutrition supplements due to CKD. Restrict dietary protein as indicated due to elevated BUN/creat. Follow Up Care Please Follow Up With: Lavern Edgar DPM When: 1 week at wound center Discharge Plan Admission Admit Date/Time: 09/09/21 11:49 Primary Reason for Your Visit: Debility, foot wound Attending Provider: Annie Steven Primary Care Provider: Raúl Eric Consulting Providers: Lavern Edgar Discharge Orders/Prescriptions Prescriptions: New insulin lispro [Humalog KwikPen Insulin] 100 unit/mL Insulin Pen 5 unit subcut TIDCM Qty: 0 RF: 0 HySept 0.25 % Solution 1 applic topical DAILY Qty: 0 RF: 0 Ted (with collagen) 7-7-1.5 gram Powder In Packet 1 packet PO BIDCM Qty: 0 RF: 0 Continued atorvastatin 80 mg tablet 80 mg PO QHS Qty: 90 RF: 3 pramipexole 1 MG tablet 1.5 mg PO BID RF: 0 clopidogrel 75 MG tablet 75 mg PO DAILY Qty: 0 RF: 0 isosorbide mononitrate 30 mg tablet extended release 24 hr 30 mg PO DAILY RF: 0 paroxetine HCl 20 mg tablet 20 mg PO QHS RF: 0 oxycodone 5 mg tablet 5 mg PO BID PRN (Reason: Pain) RF: 0 benzonatate 100 mg Capsule 100 mg PO TID PRN PRN (Reason: Cough) RF: 0 cyclobenzaprine 5 mg Tablet 5 mg PO QHS RF: 0 bupropion HCl 150 mg PO.IVFORM DAILY RF: 0 furosemide 40 mg Tablet 40 mg PO DAILY RF: 0 cefepime 2 gram recon soln 2 g IV Q12H 35 Days Qty: 70 RF: 0 carvedilol [Coreg] 6.25 mg tablet 6.25 mg PO BID Qty: 60 RF: 0 magnesium oxide [MagOx] 400 mg (241.3 mg magnesium) tablet 400 mg PO DAILY Qty: 30 RF: 0 Changed Lantus Solostar U-100 Insulin 100 unit/mL (3 mL) Insulin Pen 30 unit SUBCUT BID Qty: 0 RF: 0 Discontinued insulin lispro 100 UNIT/ML insulin pen 20 unit SC TIDCM RF: 0 Phenergan-Codeine 1 tsp PO/SL Q6H PRN PRN (Reason: Cough) RF: 0 Referrals / Follow Up: Lavern Edgar DPM [STAFF PHYSICIAN] - Within 1 Week (Follow up at [facility]; call [phone].) Raúl Eric MD [Primary Care Provider] - Disposition Disposition (needs filled in before D/C Order can be placed): Shelter Facility Documented by User: Dr. Annie Steven MD 09/14/21 14:10 Allergies/Procedures Done in Hospital Allergies oxycodone [From OxyContin] Allergy (Verified 09/09/21 09:50) feels like I'm drowning Penicillins Allergy (Verified 09/09/21 09:50) swelling in throat vancomycin Allergy (Verified 09/09/21 09:50) Itching metronidazole Adverse Reaction (Verified 09/09/21 09:50) Nausea Discharge Plan Admission Admit Date/Time: 09/09/21 11:49 Primary Reason for Your Visit: Debility, foot wound Attending Provider: Annie Steven Primary Care Provider: Raúl Eric Consulting Providers: Lavern Edgar Discharge Orders/Prescriptions Prescriptions: New insulin lispro [Humalog KwikPen Insulin] 100 unit/mL Insulin Pen 5 unit subcut TIDCM Qty: 0 RF: 0 HySept 0.25 % Solution 1 applic topical DAILY Qty: 0 RF: 0 Ted (with collagen) 7-7-1.5 gram Powder In Packet 1 packet PO BIDCM Qty: 0 RF: 0 Continued atorvastatin 80 mg tablet 80 mg PO QHS Qty: 90 RF: 3 pramipexole 1 MG tablet 1.5 mg PO BID RF: 0 clopidogrel 75 MG tablet 75 mg PO DAILY Qty: 0 RF: 0 isosorbide mononitrate 30 mg tablet extended release 24 hr 30 mg PO DAILY RF: 0 paroxetine HCl 20 mg tablet 20 mg PO QHS RF: 0 oxycodone 5 mg tablet 5 mg PO BID PRN (Reason: Pain) RF: 0 benzonatate 100 mg Capsule 100 mg PO TID PRN PRN (Reason: Cough) RF: 0 cyclobenzaprine 5 mg Tablet 5 mg PO QHS RF: 0 bupropion HCl 150 mg PO.IVFORM DAILY RF: 0 furosemide 40 mg Tablet 40 mg PO DAILY RF: 0 cefepime 2 gram recon soln 2 g IV Q12H 35 Days Qty: 70 RF: 0 carvedilol [Coreg] 6.25 mg tablet 6.25 mg PO BID Qty: 60 RF: 0 magnesium oxide [MagOx] 400 mg (241.3 mg magnesium) tablet 400 mg PO DAILY Qty: 30 RF: 0 Changed Lantus Solostar U-100 Insulin 100 unit/mL (3 mL) Insulin Pen 30 unit SUBCUT BID Qty: 0 RF: 0 Discontinued insulin lispro 100 UNIT/ML insulin pen 20 unit SC TIDCM RF: 0 Phenergan-Codeine 1 tsp PO/SL Q6H PRN PRN (Reason: Cough) RF: 0 Referrals / Follow Up: Lavern Edgar DPM [STAFF PHYSICIAN] - Within 1 Week (Follow up at [facility]; call [phone].) Raúl Eric MD [Primary Care Provider] - Disposition Disposition (needs filled in before D/C Order can be placed): Shelter Facility
--- NOTE | 2021-09-14 13:52 | CASEMGMT ---
LUCRETIA received a call from Cassie at [facility] and patient was approved. LUCRETIA notified RN, Nurse Practitioner, and Dr. Rico orders. Kamilla Tinsley MSW FLEX
--- NOTE | 2021-09-14 13:58 | PCM.DC.SUM ---
Documented by User: BRIAN Fitzgerald 09/14/21 14:07 Providers Date of Admission: 09/09/21 Primary Care Physician: Dr. 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 Comment: Reason for Consult:: bilateral foot wounds Reason For Visit: DIABETIC FOOT INFECTION Diagnosis Discharge Diagnosis (1) Ulcer of left foot with fat layer exposed: Status: Acute Code(s): L97.522 - Non-pressure chronic ulcer of other part of left foot with fat layer exposed (2) Chronic ulcer of right foot with necrosis of muscle: Status: Chronic Code(s): L97.513 - Non-pressure chronic ulcer of other part of right foot with necrosis of muscle (3) Charcot's joint of right foot: Status: Acute Code(s): M14.671 - Charcot's joint, right ankle and foot (4) Charcot's joint of left foot: Status: Chronic Code(s): M14.672 - Charcot's joint, left ankle and foot (5) Delayed wound healing: Status: Chronic Code(s): T14.8XXD - Other injury of unspecified body region, subsequent encounter (6) Bacteremia: Status: Acute Code(s): R78.81 - Bacteremia (7) Type 2 diabetes mellitus with diabetic polyneuropathy: Status: Acute Code(s): E11.42 - Type 2 diabetes mellitus with diabetic polyneuropathy Qualifiers: Diabetes mellitus care home insulin use: with care home use Qualified Code(s): E11.42 - Type 2 diabetes mellitus with diabetic polyneuropathy; 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 Medications at Discharge Home Medications atorvastatin 80 mg tablet 80 mg PO QHS #90 tablet 11/30/19 pramipexole 1.5 mg PO BID 09/12/20 clopidogrel 75 mg PO DAILY #0 tablet 01/01/21 isosorbide mononitrate 30 mg PO DAILY 03/03/21 oxycodone 5 mg PO BID PRN 07/07/21 paroxetine HCl 20 mg PO QHS 07/07/21 benzonatate 100 mg PO TID PRN PRN 09/02/21 bupropion HCl 150 mg PO.IVFORM DAILY 09/02/21 cyclobenzaprine 5 mg PO QHS 09/02/21 furosemide 40 mg PO DAILY 09/02/21 cefepime 2 g IV Q12H 35 Days #70 ea 09/07/21 carvedilol [Coreg] 6.25 mg PO BID #60 tab 09/08/21 magnesium oxide [MagOx] 400 mg PO DAILY #30 tab 09/08/21 Lantus Solostar U-100 Insulin 30 unit SUBCUT BID #0 ml 09/14/21 [id number] [Ted (with collagen)] 1 packet PO BIDCM #0 ea 09/14/21 insulin lispro [Humalog KwikPen Insulin] 5 unit SUBCUT TIDCM #0 ml 09/14/21 sodium hypochlorite [HySept] 1 applic TOPICAL DAILY #0 ml 09/14/21 Hospital Course Operations None Procedures 2-D Echocardiogram and EKG Summary of Care Provided Minutes Spent on Discharge: 35 Hospital Course: Patient is a 56-year-old female who was originally admitted for debility. Patient had been diagnosed with Covid and been hospitalized. Patient had been discharged approximately 12 hours before she represented to the ER for difficulty caring for herself at home. Patient is receiving long-term antibiotics IV for a infected diabetic ulcer as well. Patient has been followed by Dr. Edgar/Dr. Guadarrama. Patient will follow up in the wound center for continued care of her foot wound. Patient will be discharged to [facility] for ongoing PT and OT due to patient being nonweightbearing other than toe-touch with transfers. Patient was taken out of Covid precautions on 09/11/2021. Patient is currently completely asymptomatic Physical Exam Const alert, oriented x3 and no apparent distress HEENT head/scalp atraumatic Eyes conjunctivae normal and no scleral icterus Neck full ROM and supple Resp normal respiratory effort Effort and Inspection: able to speak in complete sentences and symmetric chest movement Auscultation: diminished lung sounds Cardio regular rate, regular rhythm, S1 normal heart sound and S2 normal heart sound GI normal to inspection, nondistended, normoactive bowel sounds, soft to palpation and non-tender Extremity normal to inspection and full ROM Skin no rashes or lesions noted, no wounds and skin turgor normal Neuro oriented x3, moves all extremities, no focal motor deficits and no sensory deficits noted Sensorium / Orientation: awake and alert Psych affect normal Weight / BMI Weight Weight: 243 lb 2.718 oz Body Mass Index (BMI) 39.2 ABG / Lab / Microbiology Data Result Diagrams: 09/14/21 06:17 09/14/21 06:12 Laboratory: Laboratory Results - last 24 hr 09/13/21 10:20: Crossmatch See Detail 09/13/21 16:58: POC Glucose 184 H 09/13/21 22:06: POC Glucose 178 H 09/14/21 06:12: Sodium 141, Potassium 4.7, Chloride 110 H, Carbon Dioxide 25.0, Anion Gap 6, BUN 36 H, Creatinine 1.72 H, Estim Creat Clear Calc 34.19, Est GFR (MDRD) Af Amer 39 L, Est GFR (MDRD) Non-Af 33 L, BUN/Creatinine Ratio 20.9 H, Glucose 169 H, Calcium 8.6 09/14/21 06:17: WBC 11.6 H, RBC 3.10 L, Hgb 8.5 L, Hct 26.2 L, MCV 84.5, MCH 27.4, MCHC 32.4, RDW Std Deviation 48.6 H, RDW Coeff of Fior 15.9 H, Plt Count 258, MPV 9.7, Immature Gran % (Auto) 0.900, Neut % (Auto) 84.2 H, Lymph % (Auto) 7.7 L, Cameron % (Auto) 4.9, Eos % (Auto) 2.1, Baso % (Auto) 0.2, Absolute Neuts (auto) 9.8 H, Absolute Lymphs (auto) 0.89, Nucleated RBC % 0 09/14/21 07:50: POC Glucose 174 H 09/14/21 10:59: POC Glucose 193 H D/C Instructions Weight Bearing Status: No weight bearing (Nonweightbearing bilateral foot recommended. Toe-touch for transfers only. Use assistive device.) Call your doctor if your incision/area has: Sudden Increased Bleeding and Foul Smelling Discharge Call your doctor if you observe: Fever of 101 or Higher, Shortness of breath, Chest pain, Calf discomfort and Uncontrolled pain Additional Dressing/Incision Instructions: Change Dressing in: 1 day (Bilateral foot ulcers wound care: Cleanse wounds with normal saline solution. Apply wet to dry gauze dakin's solution (half strength, 0.25%) to wounds, with overlying dry gauze, kerlix, abd pads and brando bandage. Change daily.) Please Follow Up With: Lavern Edgar DPM When: This week or next week at wound center. Meaningful Use Info Meaningful Use Diagnoses (Choose all that apply): None applicable Discharge Plan Admission Admit Date/Time: 09/09/21 11:49 Primary Reason for Your Visit: Debility, foot wound Attending Provider: Annie Steven Primary Care Provider: Raúl Eric Consulting Providers: Lavern Edgar Discharge Orders/Prescriptions Prescriptions: New insulin lispro [Humalog KwikPen Insulin] 100 unit/mL Insulin Pen 5 unit subcut TIDCM Qty: 0 RF: 0 HySept 0.25 % Solution 1 applic topical DAILY Qty: 0 RF: 0 Ted (with collagen) 7-7-1.5 gram Powder In Packet 1 packet PO BIDCM Qty: 0 RF: 0 Continued atorvastatin 80 mg tablet 80 mg PO QHS Qty: 90 RF: 3 pramipexole 1 MG tablet 1.5 mg PO BID RF: 0 clopidogrel 75 MG tablet 75 mg PO DAILY Qty: 0 RF: 0 isosorbide mononitrate 30 mg tablet extended release 24 hr 30 mg PO DAILY RF: 0 paroxetine HCl 20 mg tablet 20 mg PO QHS RF: 0 oxycodone 5 mg tablet 5 mg PO BID PRN (Reason: Pain) RF: 0 benzonatate 100 mg Capsule 100 mg PO TID PRN PRN (Reason: Cough) RF: 0 cyclobenzaprine 5 mg Tablet 5 mg PO QHS RF: 0 bupropion HCl 150 mg PO.IVFORM DAILY RF: 0 furosemide 40 mg Tablet 40 mg PO DAILY RF: 0 cefepime 2 gram recon soln 2 g IV Q12H 35 Days Qty: 70 RF: 0 carvedilol [Coreg] 6.25 mg tablet 6.25 mg PO BID Qty: 60 RF: 0 magnesium oxide [MagOx] 400 mg (241.3 mg magnesium) tablet 400 mg PO DAILY Qty: 30 RF: 0 Changed Lantus Solostar U-100 Insulin 100 unit/mL (3 mL) Insulin Pen 30 unit SUBCUT BID Qty: 0 RF: 0 Discontinued insulin lispro 100 UNIT/ML insulin pen 20 unit SC TIDCM RF: 0 Phenergan-Codeine 1 tsp PO/SL Q6H PRN PRN (Reason: Cough) RF: 0 Referrals / Follow Up: Lavern Edgar DPM [STAFF PHYSICIAN] - Within 1 Week (Follow up at [facility]; call [phone].) Raúl Eric MD [Primary Care Provider] - Disposition Disposition (needs filled in before D/C Order can be placed): [facility] Facility Documented by User: Dr. Annie Steven MD 09/14/21 14:19 Providers Date of Admission: 09/09/21 Reason For Visit: DIABETIC FOOT INFECTION Medications at Discharge Home Medications atorvastatin 80 mg tablet 80 mg PO QHS #90 tablet 11/30/19 pramipexole 1.5 mg PO BID 09/12/20 clopidogrel 75 mg PO DAILY #0 tablet 01/01/21 isosorbide mononitrate 30 mg PO DAILY 03/03/21 oxycodone 5 mg PO BID PRN 07/07/21 paroxetine HCl 20 mg PO QHS 07/07/21 benzonatate 100 mg PO TID PRN PRN 09/02/21 bupropion HCl 150 mg PO.IVFORM DAILY 09/02/21 cyclobenzaprine 5 mg PO QHS 09/02/21 furosemide 40 mg PO DAILY 09/02/21 cefepime 2 g IV Q12H 35 Days #70 ea 09/07/21 carvedilol [Coreg] 6.25 mg PO BID #60 tab 09/08/21 magnesium oxide [MagOx] 400 mg PO DAILY #30 tab 09/08/21 Lantus Solostar U-100 Insulin 30 unit SUBCUT BID #0 ml 09/14/21 [id number] [Ted (with collagen)] 1 packet PO BIDCM #0 ea 09/14/21 insulin lispro [Humalog KwikPen Insulin] 5 unit SUBCUT TIDCM #0 ml 09/14/21 sodium hypochlorite [HySept] 1 applic TOPICAL DAILY #0 ml 09/14/21 ABG / Lab / Microbiology Data Result Diagrams: 09/14/21 06:17 09/14/21 06:12 Discharge Plan Admission Admit Date/Time: 09/09/21 11:49 Primary Reason for Your Visit: Debility, foot wound Attending Provider: Annie Steven Primary Care Provider: Raúl Eric Consulting Providers: Lavern Edgar Discharge Orders/Prescriptions Prescriptions: New insulin lispro [Humalog KwikPen Insulin] 100 unit/mL Insulin Pen 5 unit subcut TIDCM Qty: 0 RF: 0 HySept 0.25 % Solution 1 applic topical DAILY Qty: 0 RF: 0 Ted (with collagen) 7-7-1.5 gram Powder In Packet 1 packet PO BIDCM Qty: 0 RF: 0 Continued atorvastatin 80 mg tablet 80 mg PO QHS Qty: 90 RF: 3 pramipexole 1 MG tablet 1.5 mg PO BID RF: 0 clopidogrel 75 MG tablet 75 mg PO DAILY Qty: 0 RF: 0 isosorbide mononitrate 30 mg tablet extended release 24 hr 30 mg PO DAILY RF: 0 paroxetine HCl 20 mg tablet 20 mg PO QHS RF: 0 oxycodone 5 mg tablet 5 mg PO BID PRN (Reason: Pain) RF: 0 benzonatate 100 mg Capsule 100 mg PO TID PRN PRN (Reason: Cough) RF: 0 cyclobenzaprine 5 mg Tablet 5 mg PO QHS RF: 0 bupropion HCl 150 mg PO.IVFORM DAILY RF: 0 furosemide 40 mg Tablet 40 mg PO DAILY RF: 0 cefepime 2 gram recon soln 2 g IV Q12H 35 Days Qty: 70 RF: 0 carvedilol [Coreg] 6.25 mg tablet 6.25 mg PO BID Qty: 60 RF: 0 magnesium oxide [MagOx] 400 mg (241.3 mg magnesium) tablet 400 mg PO DAILY Qty: 30 RF: 0 Changed Lantus Solostar U-100 Insulin 100 unit/mL (3 mL) Insulin Pen 30 unit SUBCUT BID Qty: 0 RF: 0 Discontinued insulin lispro 100 UNIT/ML insulin pen 20 unit SC TIDCM RF: 0 Phenergan-Codeine 1 tsp PO/SL Q6H PRN PRN (Reason: Cough) RF: 0 Referrals / Follow Up: Lavern Edgar DPM [STAFF PHYSICIAN] - Within 1 Week (Follow up at [facility]; call [phone].) Raúl Eric MD [Primary Care Provider] - Disposition Disposition (needs filled in before D/C Order can be placed): [facility] Charges/Coding Addendum Addendum: This patient was seen in conjunction with Ronald Salmon NP. I have independently interviewed and examined the patient and reviewed pertinent historical, laboratory, and other data. I have reviewed her note and concur with her documentation 56-year-old female with multiple comorbidities including type II DM complicated by bilateral diabetic foot ulcers, followed chronically by podiatry who was admitted with elevated blood pressure and concern for failure to thrive at home. Patient was admitted to the hospital with plans of at discharge to alf facility Patient was continued on IV antibiotics. Her blood pressure became better controlled. She was seen by PT and OT and underwent insurance precertification for discharge to alf facility Cultures grew Pseudomonas,, Klebsiella. She was continued on IV cefepime. Physical Exam: Gen: Appears chronically unwell, not pale, not jaundiced CVS:HS I +II, regular, no murmurs RESP: Diminished at lung bases GI: BS present and normal, soft, nontender, no palpable organs EXT:No edema Visit Charges Inpatient E&M: 41476 Disch Hosp
--- NOTE | 2021-09-14 14:07 | PHA.DC.MR ---
Pharmacy Service has performed discharge medication reconciliation for this patient. The patient's discharge medication list was reviewed for discrepancies and discrepancies were resolved. Home Medications atorvastatin 80 mg tablet 80 mg PO QHS #90 tablet 11/30/19 pramipexole 1.5 mg PO BID 09/12/20 clopidogrel 75 mg PO DAILY #0 tablet 01/01/21 isosorbide mononitrate 30 mg PO DAILY 03/03/21 oxycodone 5 mg PO BID PRN 07/07/21 paroxetine HCl 20 mg PO QHS 07/07/21 benzonatate 100 mg PO TID PRN PRN 09/02/21 bupropion HCl 150 mg PO.IVFORM DAILY 09/02/21 cyclobenzaprine 5 mg PO QHS 09/02/21 furosemide 40 mg PO DAILY 09/02/21 cefepime 2 g IV Q12H 35 Days #70 ea 09/07/21 carvedilol [Coreg] 6.25 mg PO BID #60 tab 09/08/21 magnesium oxide [MagOx] 400 mg PO DAILY #30 tab 09/08/21 Lantus Solostar U-100 Insulin 30 unit SUBCUT BID #0 ml 09/14/21 [id number] [Ted (with collagen)] 1 packet PO BIDCM #0 ea 09/14/21 insulin lispro [Humalog KwikPen Insulin] 5 unit SUBCUT TIDCM #0 ml 09/14/21 sodium hypochlorite [HySept] 1 applic TOPICAL DAILY #0 ml 09/14/21
--- NOTE | 2021-09-14 15:15 | CASEMGMT ---
SW arranged for patient to get picked up at 1600 via cot. SW faxed orders, negative COVID, and pickling solution maker time to [facility]. SW notified RN, patient, and multimedia teacher of pickling solution maker time. Plan: d/c to [facility] under skilled level of care on a convalescent stay. [facility] transported via cot. Kamilla MCCORD
--- NOTE | 2021-09-14 15:23 | NURSING ---
Attempted to call [facility] two times to give report at 1520, with no answer.
--- NOTE | 2021-09-14 15:56 | NURSING ---
[facility] called x2 again at [phone] with no answer.
--- NOTE | 2021-09-14 16:08 | NURSING ---
Report called to QUEENIE jack at [facility] at [phone].
== END 2021-09-14 16:43 | disposition skilled nursing facility (03) | DRG 637 ==
LOC: ED 11:50 → PCU 13:01
PROVIDERS: Admitting Provider Internal Medicine; Emergency Provider Emergency Medicine; PCP Family Medicine; Visit Provider Internal Medicine
DX: E11.621 Type 2 diabetes mellitus with foot ulcer (principal); U07.1 COVID-19; Z68.41 Body mass index [BMI] 40.0-44.9, adult; L97.412 Non-pressure chronic ulcer of right heel and midfoot with fat layer exposed; L97.422 Non-pressure chronic ulcer of left heel and midfoot with fat layer exposed; L97.319 Non-pressure chronic ulcer of right ankle with unspecified severity; R78.81 Bacteremia; R62.7 Adult failure to thrive; I16.0 Hypertensive urgency; N18.30 Chronic kidney disease, stage 3 unspecified; I12.9 Hypertensive chronic kidney disease with stage 1 through stage 4 chronic kidney disease, or unspecified chronic kidney disease; E11.22 Type 2 diabetes mellitus with diabetic chronic kidney disease; E11.628 Type 2 diabetes mellitus with other skin complications; B96.1 Klebsiella pneumoniae [K. pneumoniae] as the cause of diseases classified elsewhere; B96.5 Pseudomonas (aeruginosa) (mallei) (pseudomallei) as the cause of diseases classified elsewhere; D63.8 Anemia in other chronic diseases classified elsewhere; L97.513 Non-pressure chronic ulcer of other part of right foot with necrosis of muscle; E11.622 Type 2 diabetes mellitus with other skin ulcer; E11.610 Type 2 diabetes mellitus with diabetic neuropathic arthropathy; E11.42 Type 2 diabetes mellitus with diabetic polyneuropathy; E11.649 Type 2 diabetes mellitus with hypoglycemia without coma; Z91.19 Patient's noncompliance with other medical treatment and regimen; I25.10 Atherosclerotic heart disease of native coronary artery without angina pectoris; I25.5 Ischemic cardiomyopathy; E78.5 Hyperlipidemia, unspecified; G25.81 Restless legs syndrome; K21.9 Gastro-esophageal reflux disease without esophagitis; F32.A Depression, unspecified; F41.9 Anxiety disorder, unspecified; E66.9 Obesity, unspecified; Z79.02 Long term (current) use of antithrombotics/antiplatelets; Z79.4 Long term (current) use of insulin; Z79.2 Long term (current) use of antibiotics; Z79.899 Other long term (current) drug therapy; I25.2 Old myocardial infarction; Z95.5 Presence of coronary angioplasty implant and graft; Z86.73 Personal history of transient ischemic attack (TIA), and cerebral infarction without residual deficits
CPT/HCPCS: 36415; 36592; 80048; 82962; 83735; 84100; 85025; 86850; 86900; 86901; 86920; 87426; 97110; 97162; 97166; 97530; 97535; 97802; 99285; J7030; J7040; P9016; A4216; J2405

== ENCOUNTER 2021-09-23 15:00 | Outpatient (RCR) | payer MEDICARE, MEDICAID, SELFPAY ==
[2018-09-21 13:23] VITALS: BMI 29.3
[2021-09-09 00:19] VITALS: BP 162/79; PULSE 100; RESP 16; TEMP 37.1; BMI 32.3
[2021-09-16 15:23] VITALS: BP 163/86; PULSE 82; RESP 18; TEMP 36.6; BMI 32.3
--- NOTE | 2021-09-16 15:46 | PN.PCM_ITS ---
History of Present Illness Date of Service: 09/16/21 Chief Complaint: right foot ulcer left foot ulcer History of Wound: Patient is a 56-year-old female who presents to the clinic for bilateral foot ulcers. She was recently discharged from the hospital for hypertension and Covid 19 management. She denies odor or redness. She resides at [facility]. She denies fever, chill, nausea, vomiting, foot pain. She denies drainage coming from her prior ankle ulcer site on the right lower extremity. Progress of Wound: Improving Objective Data Objective Data Vital Signs: Vital Signs Temp Pulse Resp BP 97.8 F 82 18 163/86 H 09/16/21 15:23 09/16/21 15:23 09/16/21 15:23 09/16/21 15:23 Weight: 91.138 kg Body Mass Index (BMI) 32.3 Physical Exam Narrative General Skin Exam: atrophy and dry skin; Negative for ecchymosis, no erythema, no eschar, and no odor. no purulence, no streaking Plantar left foot ulceration: No exposed tendon or probe to bone. No maceration noted. There is no erythema or edema or malodor or purulence or other suggestion signs of infection. Some slight serosanguineous drainage noted. Ulcer healing. Tissues are healthy and viable - ulcer is down to subcutaneous tissue. Plantar right foot ulceration. No exposed tendon or probe to bone. No maceration noted. There is no erythema or edema or malodor or purulence or other suggestion signs of infection. Some slight serosanguineous drainage noted. Ulcer healing. Tissues are healthy and viable - ulcer is down to subcutaneous tissue. 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 Chronic charcot foot deformity noted bilaterally, no acute deformity. No gross laxity or crepitus with manipulation. Negative calf tenderness bilateral, no evidence of DVT bilateral. CFT < 2 seconds to all toes with no evidence of acute ischemia to foot bilateral. Chronic peripheral neuropathy bilateral foot. Debridement Note Debridement Note Wound debrided: plantar lateral right foot, plantar lateral left foot Wound Grade/Stage: 2,1 Type of Debridement: Excisional debridement Anesthesia Used: 4% Lidocaine Solution Depth: in the subcutaneous layer Percentage of wound debrided: 100 Instrument Used: #15 blade Tissue Removed: fibrous, devitalized subcutaneous, biofilm, slough Severity: Fat Layer Exposed Amount of bleeding with debridement: Mild Bleeding Controlled with: Pressure Patient tolerated procedure: Patient tolerated procedure well Post-Debridement Measurements and Additional Note: Post-Debridement Measurements/Treatment - Nurse 1 - General Ulcer Assessment Start: 09/16/21 15:23 Freq: Status: Active Protocol: SHANICE Activity Type Activity Date Activity User E-Sign Co-Sign Detail Recorded Client Recorded Date Recorded By Document 09/16/21 15:23 ZIGGY [id number] 09/16/21 15:34 RB 09/16/21 15:23 WC - Today's Visit Information Type of service Follow-up Visit (Physician/[employer] ) Arrival Mode Wheelchair Transfer Assistance None Patient Identification Verified (Name & Yes ) Height and Weight Body Mass Index (BMI) 32.3 BMI Classification Obese Vital Signs Temperature (97.8 F-99.1 F) 97.8 F Temperature Source Temporal Pulse Rate (60-100) 82 Pulse Location Monitor Respiratory Rate (12-18) 18 Respiratory rate source Observation Blood Pressure (90/60-120/80) 163/86 H Blood Pressure Mean (mm Hg) 111 Source Monitor Position Sitting Blood Pressure Location Left Arm History Since Last Visit- (Skip if this is Patient's initial visit) Have you changed medications since your No last visit? Any new allergies or adverse reactions No Had a fall/change in ADL's that may No increase risk of falls Signs or symptoms of abuse and/or No neglect since last visit Have you been in the hospital since your No last visit? Has dressing in place as prescribed Yes Has compression in place as prescribed No Has offloadiing in place as prescribed No Experienced any changes in pain level or No management Pain Scale: 0-10 Numeric Is Patient Pain Free? Yes - Nurse 1 - General Ulcer Measurement Start: 09/16/21 15:23 Freq: Status: Active Protocol: Activity Type Activity Date Activity User E-Sign Co-Sign Detail Recorded Client Recorded Date Recorded By Document 09/16/21 15:23 ZIGGY [id number] 09/16/21 15:34 RB 09/16/21 15:23 Wound Center Nurse 1 #21 RIGHT LAT ANKLE -Combined with other wound No -Current Size (cm) - Length 0 -Current Size (cm) - Width 0 -Current Size (cm) - Depth 0 -Total Square Cm 0 -Photo Taken Yes -Epithelialization Large 67-100% -Tunneling No -Undermining/Tunneling No -Circular Undermining No -Exudate Amt None Present -Granulation Amt Large (67-100%) -Granulation Quality [place] -Slough/Fibrin No -Necrosis Amt None Present (0 %) -Structure Exposed N/A -Texture (Natacha-wound Skin Appearance) Assessed -Moisture (Natacha-wound Skin Appearance) Assessed -Color (Natacha-wound Skin Appearance) Assessed -Temperature (Natacha-wound Skin No Abnormality Appearance) (Pt Warm) -Tenderness on Palpation (Natacha-wound No Skin Appearance) -Ulcer Cleansing Wound Cleanser -Foul Odor after Cleansing No 19-right inferior plantar -Combined with other wound No -Current Size (cm) - Length 2.7 -Current Size (cm) - Width 2.3 -Current Size (cm) - Depth 1.1 -Total Square Cm 6.21 -Tunneling Yes -Tunneling Position (O'clock) 11 -Tunneling Distance (cm) 2.4 -Undermining/Tunneling No -Circular Undermining No -Exudate Amt Medium -Exudate Type Serosanguineous -Wound Margin Thickened & Rolled Under -Granulation Amt Medium (34-66%) -Granulation Quality [place] -Slough/Fibrin Yes -Necrosis Amt Medium (34-66%) -Necrotic Tissue Type Adherent Slough -Structure Exposed N/A -Texture (Natacha-wound Skin Appearance) Assessed,Callus -Moisture (Natacha-wound Skin Appearance) Assessed -Color (Natacha-wound Skin Appearance) Assessed -Temperature (Natacha-wound Skin No Abnormality Appearance) (Pt Warm) -Tenderness on Palpation (Natacha-wound No Skin Appearance) -Ulcer Cleansing Wound Cleanser -Foul Odor after Cleansing No -Anesthetic Used 4% Lidocaine Solution #16 L Plantar foot -Combined with other wound No -Current Size (cm) - Length 3.3 -Current Size (cm) - Width 2.5 -Current Size (cm) - Depth 1.1 -Total Square Cm 8.25 -Tunneling No -Undermining/Tunneling Yes -Undermining/Tunneling Starts (O'clock 10 ) -Undermining/Tunneling Ends (O'clock) 12 -Maximum Distance (cm) 0.8 -Circular Undermining No -Exudate Amt Medium -Exudate Type Serosanguineous -Wound Margin Thickened & Rolled Under -Granulation Amt Medium (34-66%) -Granulation Quality [place] -Slough/Fibrin Yes -Necrosis Amt Large (67-100%) -Necrotic Tissue Type Adherent Slough -Structure Exposed N/A -Texture (Natacha-wound Skin Appearance) Assessed,Callus -Moisture (Natacha-wound Skin Appearance) Assessed -Color (Natacha-wound Skin Appearance) Assessed -Temperature (Natacha-wound Skin No Abnormality Appearance) (Pt Warm) -Tenderness on Palpation (Natacha-wound No Skin Appearance) -Ulcer Cleansing Wound Cleanser -Foul Odor after Cleansing No -Anesthetic Used 4% Lidocaine Solution Assessment/Plan Assessment/Plan (1) Chronic ulcer of right foot with fat layer exposed: CODE(S): L97.512 - Non-pressure chronic 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 layer exposed (2) Chronic foot pain: CODE(S): M79.673 - Pain in unspecified foot; G89.29 - Other chronic pain QUALIFIERS: Laterality: unspecified laterality Qualified Code(s): M79.673 - Pain in unspecified foot; G89.29 - Other chronic pain (3) Delayed wound healing: CODE(S): T14.8XXD - Other injury of unspecified body region, subsequent encounter (4) Debility: CODE(S): R53.81 - Other malaise (5) Hyperglycemia due to type 2 diabetes mellitus: CODE(S): E11.65 - Type 2 diabetes mellitus with hyperglycemia QUALIFIERS: Diabetes mellitus ux researcher insulin use: with ux researcher use Qualified Code(s): E11.65 - Type 2 diabetes mellitus with hyperglycemia; Z79.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 Debridement was performed as noted in the clinical nursing panel. Dressing: Change daily with Dakin Wash: Antibacterial soap and water daily She is reassured no signs of local or systemic infection are noted today. To monitor. Patient is to remain strict nonweightbearing. She is noted to have a wheelchair. To continue. She had recent hospitalization with bacteremia with suspected nidus of infection as one of her foot ulcers. She had tendon debrided from the right foot while in the hospital bedside. She was seen by infectious disease and the current plan includes the following: six weeks iv cefepime, stop date 10/13/21. She was seen by Dr. Tello today as well. It is noted she is already been undergoing a comprehensive wound healing plan and has delayed and nonhealing. She has had prior bone biopsies, wound culture, skin grafts, total contact cast, multiple hospital visits, surgeries, and intervention with infectious disease. Try to optimize nutrition by offering referral for nutrition patient declined. She has suspected adequate vascular perfusion for healing per her recent noninvasive vascular studies 09/01/2020 with triphasic waveforms noted. Patient's hemoglobin A1c was 13.1% on 12/29/2020. This was recently checked in June and was decreased to 9% range. Offloading strongly recommended. Optimal blood sugar control and increased protein intake also discussed. To continue nonweightbearing bilateral foot with use of wheelchair. Follow up in 1 week. All questions were answered and she was advised to call with any further questions or concerns. This note was generated with [employer] dictation software. It may contain incorrect words, spelling, and punctuation that were not noted in checking the note before signing. The medical decision making level is limited based on data including the review of prior external notes, review of a prior test, or ordering a test. The medical decision making level is low. There is noted low risk of morbidity after considering this treatment plan and diagnostic data.
--- NOTE | 2021-09-16 19:19 | PCM.PN.ID ---
Physical Exam Narrative Feeling ok, at [facility], no fever, no n/v/d, feet improving Const alert and no apparent distress General Appearance: cooperative Resp normal air movement and clear to auscultation bilaterally Cardio regular rate and regular rhythm GI normal to inspection, nondistended, normoactive bowel sounds Skin Skin Narrative: bilat foot ulcers, no redness ID ID: Route of nutrition/ use of supplements: [] Nutritional Intake: [] IV Site: [] Tirado Catheter: [] Assessment & Plan Assessment/Plan (1) Diabetic foot infection: PLAN: mssa, proteus, and enterobacter bacteremia, suspect foot infection as source. Neg TTE, but during admit found to have splinter hemorrhage on L 5th finger. Wound cxs with PsA, klebs, mssa, enterobacter, corynebacter. D/c'd to [facility] on 6 weeks iv cefepime, stop date 10/13/21. Weekly labs. Feeling better, feet improving. Return to clinic as needed, d/w Dr. Edgar.
[2021-09-23 15:12] VITALS: BP 133/71; PULSE 97; RESP 16; TEMP 35.8; BMI 32.3
--- NOTE | 2021-09-23 16:12 | PCM.WC.PN ---
History of Present Illness Date of Service: 09/23/21 Chief Complaint: right foot ulcer left foot ulcer History of Wound: Patient is a 56-year-old female who presents to the clinic for bilateral foot ulcers. She was recently discharged from the hospital for hypertension and Covid 19 management. She denies odor or redness. She resides at snf facility. She denies fever, chill, nausea, vomiting, foot pain. She was recently treated for bacteremia with suspected nidus from foot. She had a tendon debridement performed bedside to the right foot during her recent hospitalization. She is on a PICC line with 6-week IV antibiotic course. She has been able to offload much better now that she is in a skilled facility and is engaged in her visit today. Progress of Wound: Improving Objective Data Objective Data Vital Signs: Vital Signs Temp Pulse Resp BP 96.5 F L 97 16 133/71 H 09/23/21 15:12 09/23/21 15:12 09/23/21 15:12 09/23/21 15:12 Oxygen Delivery Method Room Air Weight: 91.138 kg Body Mass Index (BMI) 32.3 Physical Exam Narrative General Skin Exam: atrophy and dry skin; Negative for ecchymosis, no erythema, no eschar, and no odor. no purulence, no streaking Plantar left foot ulceration: No exposed tendon or probe to bone. No maceration noted. There is no erythema or edema or malodor or purulence or other suggestion signs of infection. Some slight serosanguineous drainage noted. Ulcer healing. Tissues are healthy and viable - ulcer is down to subcutaneous tissue. Plantar right foot ulceration. No exposed tendon or probe to bone. No maceration noted. There is no erythema or edema or malodor or purulence or other suggestion signs of infection. Some slight serosanguineous drainage noted. Ulcer healing. Tissues are healthy and viable - ulcer is down to subcutaneous tissue. 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 Chronic charcot foot deformity noted bilaterally, no acute deformity. No gross laxity or crepitus with manipulation. Negative calf tenderness bilateral, no evidence of DVT bilateral. CFT < 2 seconds to all toes with no evidence of acute ischemia to foot bilateral. Chronic peripheral neuropathy bilateral foot. Debridement Note Debridement Note Wound debrided: bilateral plantar lateral foot Wound Grade/Stage: 2 (right),1 (left) Type of Debridement: Excisional debridement Anesthesia Used: 4% Lidocaine Solution Depth: in the subcutaneous layer Percentage of wound debrided: 100 Instrument Used: #15 blade Tissue Removed: fibrous, devitalized subcutaneous, biofilm, slough Severity: Fat Layer Exposed Amount of bleeding with debridement: Mild Bleeding Controlled with: Pressure Patient tolerated procedure: Patient tolerated procedure well Post-Debridement Measurements and Additional Note: Post-Debridement Measurements/Treatment - Nurse 1 - General Ulcer Assessment Start: 09/16/21 15:23 Freq: Status: Active Protocol: SHANICE Activity Type Activity Date Activity User E-Sign Co-Sign Detail Recorded Client Recorded Date Recorded By Document 09/16/21 15:23 RB [id number] 09/16/21 15:34 RB Document 09/23/21 15:12 BM [id number] 09/23/21 15:15 BMF 09/16/21 09/23/21 15:23 15:12 - Today's Visit Information Type of service Follow-up Visit Follow-up Visit (Physician/CODING ANALYST (Physician/CODING ANALYST ) ) Arrival Mode Wheelchair Wheelchair Transfer Assistance None Other Transfer Assist (Other) 1 assist Patient Identification Verified (Name & Yes Yes ) Patient Requires Transmission-Based No Precautions Height and Weight Body Mass Index (BMI) 32.3 32.3 BMI Classification Obese Obese Vital Signs Temperature (97.8 F-99.1 F) 97.8 F 96.5 F L Temperature Source Temporal Temporal Pulse Rate (60-100) 82 97 Pulse Location Monitor Monitor Respiratory Rate (12-18) 18 16 Respiratory rate source Observation Observation Oxygen Delivery Method Room Air Blood Pressure (90/60-120/80) 163/86 H 133/71 H Blood Pressure Mean (mm Hg) 111 91 Source Monitor Monitor Position Sitting Sitting Blood Pressure Location Left Arm Left Arm History Since Last Visit- (Skip if this is Patient's initial visit) Have you changed medications since your No No last visit? Any new allergies or adverse reactions No No Had a fall/change in ADL's that may No No increase risk of falls Signs or symptoms of abuse and/or No No neglect since last visit Have you been in the hospital since your No No last visit? Has dressing in place as prescribed Yes Yes Has compression in place as prescribed No No Has offloadiing in place as prescribed No N/A Experienced any changes in pain level or No No management Pain Scale: 0-10 Numeric Is Patient Pain Free? Yes Yes WC - Nurse 1 - General Ulcer Measurement Start: 09/16/21 15:23 Freq: Status: Active Protocol: Activity Type Activity Date Activity User E-Sign Co-Sign Detail Recorded Client Recorded Date Recorded By Document 09/16/21 15:23 RB [id number] 09/16/21 15:34 RB Document 09/23/21 15:12 BM [id number] 09/23/21 15:15 BMF 09/16/21 09/23/21 15:23 15:12 Wound Center Nurse 1 #21 RIGHT LAT ANKLE -Combined with other wound No -Current Size (cm) - Length 0 -Current Size (cm) - Width 0 -Current Size (cm) - Depth 0 -Total Square Cm 0 -Photo Taken Yes -Epithelialization Large 67-100% -Tunneling No -Undermining/Tunneling No -Circular Undermining No -Exudate Amt None Present -Granulation Amt Large (67-100%) -Granulation Quality [place] -Slough/Fibrin No -Necrosis Amt None Present (0 %) -Structure Exposed N/A -Texture (Natacha-wound Skin Appearance) Assessed -Moisture (Natacha-wound Skin Appearance) Assessed -Color (Natacha-wound Skin Appearance) Assessed -Temperature (Natacha-wound Skin No Abnormality Appearance) (Pt Warm) -Tenderness on Palpation (Natacha-wound No Skin Appearance) -Ulcer Cleansing Wound Cleanser -Foul Odor after Cleansing No 19-right inferior plantar -Combined with other wound No No -Current Size (cm) - Length 2.7 2.3 -Current Size (cm) - Width 2.3 2.1 -Current Size (cm) - Depth 1.1 0.4 -Total Square Cm 6.21 4.83 -Photo Taken No -Epithelialization None Present -Tunneling Yes No -Tunneling Position (O'clock) 11 -Tunneling Distance (cm) 2.4 -Undermining/Tunneling No No -Circular Undermining No No -Exudate Amt Medium Medium -Exudate Type Serosanguineous Serosanguineous -Wound Margin Thickened & Distinct, Rolled Under Outline Attached -Granulation Amt Medium (34-66%) Large (67-100%) -Granulation Quality [place] Pale,Red -Slough/Fibrin Yes Yes -Necrosis Amt Medium (34-66%) None Present (0 %) -Necrotic Tissue Type Adherent Slough -Structure Exposed N/A -Texture (Natacha-wound Skin Appearance) Assessed,Callus Assessed,Callus ,Scarring -Moisture (Natacha-wound Skin Appearance) Assessed Assessed,Dry/ Scaly -Color (Natacha-wound Skin Appearance) Assessed Assessed -Temperature (Natacha-wound Skin No Abnormality No Abnormality Appearance) (Pt Warm) (Pt Warm) -Tenderness on Palpation (Natacha-wound No No Skin Appearance) -Ulcer Cleansing Wound Cleanser Soap and Water -Foul Odor after Cleansing No No -Anesthetic Used 4% Lidocaine 5% Lidocaine Solution Gel #16 L Plantar foot -Combined with other wound No No -Current Size (cm) - Length 3.3 3.1 -Current Size (cm) - Width 2.5 2.4 -Current Size (cm) - Depth 1.1 0.3 -Total Square Cm 8.25 7.44 -Photo Taken No -Epithelialization None Present -Tunneling No No -Undermining/Tunneling Yes No -Undermining/Tunneling Starts (O'clock 10 ) -Undermining/Tunneling Ends (O'clock) 12 -Maximum Distance (cm) 0.8 -Circular Undermining No No -Exudate Amt Medium Medium -Exudate Type Serosanguineous Serosanguineous -Wound Margin Thickened & Distinct, Rolled Under Outline Attached -Granulation Amt Medium (34-66%) Large (67-100%) -Granulation Quality [place] Pale,Red -Slough/Fibrin Yes No -Necrosis Amt Large (67-100%) None Present (0 %) -Necrotic Tissue Type Adherent Slough -Structure Exposed N/A -Texture (Natacha-wound Skin Appearance) Assessed,Callus Assessed,Callus ,Scarring -Moisture (Natacha-wound Skin Appearance) Assessed Assessed,Dry/ Scaly -Color (Natacha-wound Skin Appearance) Assessed Assessed -Temperature (Natacha-wound Skin No Abnormality No Abnormality Appearance) (Pt Warm) (Pt Warm) -Tenderness on Palpation (Natacha-wound No No Skin Appearance) -Ulcer Cleansing Wound Cleanser Rinsed/ Irrigated with Saline -Foul Odor after Cleansing No No -Anesthetic Used 4% Lidocaine 5% Lidocaine Solution Gel Lower Limb Edema Present Yes Right Calf (cm) 37.4 Right Ankle (cm) 23.4 Left Calf (cm) 37.5 Left Ankle (cm) 22 - Nurse 2 - General Ulcer CM Notes Start: 09/16/21 15:23 Freq: Status: Active Protocol: Activity Type Activity Date Activity User E-Sign Co-Sign Detail Recorded Client Recorded Date Recorded By Document 09/16/21 15:41 [id number] 09/16/21 15:47 JF Document 09/23/21 15:23 LISSY [id number] 09/23/21 15:25 JF 09/16/21 09/23/21 15:41 15:23 Wound Center Nurse 2 #21 RIGHT LAT ANKLE -Correct Patient No -Correct Side, Site, Position No -Correct Procedure No -Procedure Performed No -Post Debridement (cm) - Length 0 -Post Debridement (cm) - Width 0 -Post Debridement (cm) - Depth 0 -Total Square (Post) (cm) 0 -Area of Debridement (cm) - Length 0 -Area of Debridement (cm) - Width 0 -Total Square (Area) (cm) 0 -Wound/Ulcer Outcome Healed- Epithelialized 19-right inferior plantar -Time 15:45 15:24 -Correct Patient Yes Yes -Correct Side, Site, Position Yes Yes -Correct Procedure Yes Yes -Procedure Performed Yes Yes -Type of Procedure Debridement Debridement -Clinical Debridement Subcutaneous Subcutaneous -Tissue Removed Subcutaneous Subcutaneous -Post Debridement (cm) - Length 2.8 2.4 -Post Debridement (cm) - Width 2.4 2.2 -Post Debridement (cm) - Depth 1.1 0.4 -Total Square (Post) (cm) 6.72 5.28 -Area of Debridement (cm) - Length 2.8 2.4 -Area of Debridement (cm) - Width 2.4 2.2 -Total Square (Area) (cm) 6.72 5.28 -Tunneling No No -Undermining/Tunneling No No -Circular Undermining No No -Wound/Ulcer Outcome Not Healed Not Healed -Ulcer Cleansing Rinsed/ Rinsed/ Irrigated with Irrigated with Saline Saline -Foul Odor after Cleansing No No -Bioengineered Tissue No No -Bleeding Controlled with Pressure Pressure -Offloading No No -Treatment Response Procedure Procedure Tolerated Well Tolerated Well -Debridement - Subq, 1st 20sq cm No Yes #16 L Plantar foot -Time 15:43 15:24 -Correct Patient Yes Yes -Correct Side, Site, Position Yes Yes -Correct Procedure Yes Yes -Procedure Performed Yes Yes -Type of Procedure Debridement Debridement -Clinical Debridement Subcutaneous Subcutaneous -Tissue Removed Subcutaneous Subcutaneous -Post Debridement (cm) - Length 3.4 3.2 -Post Debridement (cm) - Width 2.5 2.4 -Post Debridement (cm) - Depth 1.2 0.3 -Total Square (Post) (cm) 8.50 7.68 -Area of Debridement (cm) - Length 3.4 3.2 -Area of Debridement (cm) - Width 2.5 2.4 -Total Square (Area) (cm) 8.50 7.68 -Tunneling No No -Undermining/Tunneling No No -Circular Undermining No No -Wound/Ulcer Outcome Not Healed Not Healed -Ulcer Cleansing Rinsed/ Rinsed/ Irrigated with Irrigated with Saline Saline -Foul Odor after Cleansing No No -Bioengineered Tissue No No -Bleeding Controlled with Pressure Pressure -Offloading No No -Treatment Response Procedure Procedure Tolerated Well Tolerated Well -Debridement - Subq, 1st 20sq cm Yes No Pain Scale: 0-10 Numeric Is Patient Pain Free? Yes Yes - Nurse 3 - General Ulcer D/C NN Start: 09/16/21 15:23 Freq: Status: Active Protocol: Activity Type Activity Date Activity User E-Sign Co-Sign Detail Recorded Client Recorded Date Recorded By Document 09/16/21 15:54 RB [id number] 09/16/21 15:55 RB Document 09/23/21 15:39 RB [id number] 09/23/21 15:41 RB 09/16/21 09/23/21 15:54 15:39 Wound Care Nurse 3 19-right inferior plantar -Ulcer Cleansing Rinsed/ Irrigated with Saline -Other Dressing saline moistened gauze -Primary Dressing Covered/Secured with Dry Gauze & Dry Gauze,Dry Roll Gauze, Gauze & Roll Secured with Gauze,Secured Tape with Tape -Other Covering saline moistened gauze / kerlix, brando #16 L Plantar foot -Ulcer Cleansing Wound Cleanser -Other Dressing saline saline moistened gauze moistened gauze / kerlix / brando -Primary Dressing Covered/Secured with Dry Gauze & Dry Gauze,Dry Roll Gauze, Gauze & Roll Secured with Gauze,Secured Tape with Tape Treatment Response Procedure Procedure Tolerated Well Tolerated Well Pain Scale: 0-10 Numeric Is Patient Pain Free? Yes Yes WC - Visit Discharge Discharge Condition Stable Stable Ambulatory Status Wheelchair Wheelchair Transportation Private Auto Medication Reconcilliation completed & No provided to patient/care provider Clinical Summary of Care Provided Yes Yes Notes: brando bilateral lower legs Assessment/Plan Assessment/Plan (1) Chronic ulcer of right foot with fat layer exposed: CODE(S): L97.512 - Non-pressure chronic 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 layer exposed (2) Chronic foot pain: CODE(S): M79.673 - Pain in unspecified foot; G89.29 - Other chronic pain QUALIFIERS: Laterality: unspecified laterality Qualified Code(s): M79.673 - Pain in unspecified foot; G89.29 - Other chronic pain (3) Delayed wound healing: CODE(S): T14.8XXD - Other injury of unspecified body region, subsequent encounter (4) Debility: CODE(S): R53.81 - Other malaise (5) Hyperglycemia due to type 2 diabetes mellitus: CODE(S): E11.65 - Type 2 diabetes mellitus with hyperglycemia QUALIFIERS: Diabetes mellitus nursing home insulin use: with nursing home use Qualified Code(s): E11.65 - Type 2 diabetes mellitus with hyperglycemia; Z79.4 - residential (current) use of insulin (6) Charcot's joint of left foot: CODE(S): M14.672 - Charcot's joint, left ankle and foot (7) Charcot's joint of right foot: CODE(S): M14.671 - Charcot's joint, right ankle and foot (8) Ulcer of left foot with fat layer exposed: CODE(S): L97.522 - Non-pressure chronic ulcer of other part of left foot with fat layer exposed (9) Chronic ulcer of right leg with fat layer exposed: CODE(S): L97.912 - Non-pressure chronic ulcer of unspecified part of right lower leg with fat layer exposed (10) Bacteremia: CODE(S): R78.81 - Bacteremia PLAN: Patient seen and examined. Debridement was performed as noted in the clinical nursing panel. Dressing: Change daily with Dakin Wash: Antibacterial soap and water daily She is reassured no signs of local or systemic infection are noted today. To monitor. Patient is to remain strict nonweightbearing. She is noted to have a wheelchair. To continue. She had recent hospitalization with bacteremia with suspected nidus of infection as one of her foot ulcers. She had tendon debrided from the right foot while in the hospital bedside. The current plan includes the following: six weeks iv cefepime, stop date 10/13/21. This is managed by Dr. Tello, infectious disease physician. It is noted she is already been undergoing a comprehensive wound healing plan and has delayed and nonhealing. She has had prior bone biopsies, wound culture, skin grafts, total contact cast, multiple hospital visits, surgeries, and intervention with infectious disease. Try to optimize nutrition by offering referral for nutrition patient declined. She has suspected adequate vascular perfusion for healing per her recent noninvasive vascular studies 09/01/2020 with triphasic waveforms noted. Patient's hemoglobin A1c was 13.1% on 12/29/2020. This was recently checked in June and was decreased to 9% range. Offloading strongly recommended. Optimal blood sugar control and increased protein intake also discussed. To continue nonweightbearing bilateral foot with use of wheelchair. Her snf facility placement is noted and she is doing well in this setting. Follow up in 1 to 2 weeks. All questions were answered and she was advised to call with any further questions or concerns. This note was generated with [employer] dictation software. It may contain incorrect words, spelling, and punctuation that were not noted in checking the note before signing. She has since significantly stabilized compared her recent hospitalization status. The medical decision making level is low. There is noted low risk of morbidity after considering this treatment plan and diagnostic data. The problems addressed require a low medical decision making level which includes two or more minor problems, a stable chronic illness, or an acute uncomplicated illness or injury.
== END 2021-10-09 23:59 ==
LOC: WC 15:00
PROVIDERS: PCP Family Medicine; Referring Provider Podiatrist; Visit Provider Podiatrist
DX: E11.621 Type 2 diabetes mellitus with foot ulcer (principal); L97.412 Non-pressure chronic ulcer of right heel and midfoot with fat layer exposed; L97.422 Non-pressure chronic ulcer of left heel and midfoot with fat layer exposed; L97.912 Non-pressure chronic ulcer of unspecified part of right lower leg with fat layer exposed; E11.628 Type 2 diabetes mellitus with other skin complications; R78.81 Bacteremia; E11.65 Type 2 diabetes mellitus with hyperglycemia; I10 Essential (primary) hypertension; E11.42 Type 2 diabetes mellitus with diabetic polyneuropathy; E11.610 Type 2 diabetes mellitus with diabetic neuropathic arthropathy; G89.29 Other chronic pain; E66.9 Obesity, unspecified; Z68.32 Body mass index [BMI] 32.0-32.9, adult; Z79.4 Long term (current) use of insulin; Z79.02 Long term (current) use of antithrombotics/antiplatelets; Z79.899 Other long term (current) drug therapy
CPT/HCPCS: 11042; 99213; G0463

== ENCOUNTER → 2021-09-24 13:30 | Outpatient (CLI) | payer MEDICARE, MEDICAID, SELFPAY ==
[2018-09-21 13:23] VITALS: BMI 29.3
[2021-09-24 16:01] LABS: Albumin, Serum 1.9 g/dL (3.2-5.0); BUN 45 mg/dL (7-18); Calcium,Total 8.5 mg/dL (8.5-10.1); Chloride 106 mmol/L (98-107); Creatinine, Serum 2.25 mg/dL (0.55-1.02); EST Glomerular Filtration Rate 24 mL/min (>60); Est Glom Filt Rate - Afr Amer 29 mL/min (>60); Glucose 162 mg/dL (74-106); Potassium 4.1 mmol/L (3.5-5.1); Sodium Level 140 mmol/L (136-145)
== END ==
PROVIDERS: PCP Family Medicine; Visit Provider Internal Medicine Nephrology
DX: N18.4 Chronic kidney disease, stage 4 (severe) (principal)
CPT/HCPCS: 36415; 80069

== ENCOUNTER 2021-10-23 11:39 | Outpatient (CLI) | payer MEDICARE, MEDICAID, SELFPAY ==
[2018-09-21 13:23] VITALS: BMI 29.3
[2021-10-23 12:40] LABS: Color, Urine Yellow (Yellow); Glucose, Dipstick 250 mg/dl (Normal); Ketone-Dipstick Negative (Negative); Leukocyte Esterase-Dipstick Negative /ul (Negative); Nitrite-Dipstick Negative (Negative); Occult Blood-Urine 50 /ul (Negative); Protein-Dipstick 500 mg/dl (Negative); Specific Gravity, Urine 1.015 (1.002-1.030); Urine Bilirubin Dipstick Negative (Negative); Urine Clarity Sl. Cloudy (Clear); Urine Urobilinogen Normal (Normal)
== END 2021-10-23 23:59 | disposition short-term general hospital (02) ==
LOC: LABSPEC 11:43
PROVIDERS: PCP Family Medicine; Referring Provider Internal Medicine Nephrology; Visit Provider Internal Medicine Nephrology
DX: E11.22 Type 2 diabetes mellitus with diabetic chronic kidney disease (principal); E11.621 Type 2 diabetes mellitus with foot ulcer; N18.4 Chronic kidney disease, stage 4 (severe)
CPT/HCPCS: 81002; 87086; 87088

== ENCOUNTER 2021-10-25 12:10 | Inpatient (IN) | payer MEDICARE, MEDICAID, SELFPAY ==
[2018-09-21 13:23] VITALS: BMI 29.3
[2021-10-25] VITALS (10 sets, daily range): BP systolic 155–200; BP diastolic 81–121; PULSE 93–120; RESP 16–24; TEMP 36.4–37.1; O2SAT 96–99; BMI 33.8; BMI 31.4
--- NOTE | 2021-10-25 12:33 | EKG12_ITS ---
Test Reason : CP Blood Pressure : / mmHG Vent. Rate : 114 BPM Atrial Rate : 114 BPM P-R Int : 140 ms QRS Dur : 090 ms QT Int : 344 ms P-R-T Axes : 049 -09 057 degrees QTc Int : 474 ms Sinus tachycardia Otherwise normal ECG Confirmed by OTTO DELVALLE, DOMINIQUE ([id number]), videotape editor HARINI PHAM ([id number]) on 10/26/2021 12:59:21 PM Referred By: MAGO Confirmed By:DOMINIQUE MENJIVAR MD
--- NOTE | 2021-10-25 12:35 | EX.ED.DYSGE1 ---
HPI History of Present Illness Chief Complaint: Hyperglycemia Informant: patient and family Onset/Context/Timing Onset: Today Narrative Narrative: Patient reportedly called EMS this morning secondary to having chest pain. She states the pain started sometime this morning but she is not able to elaborate. She denies having pain at this time. She is unable to tell me how long the pain lasted. Pain reportedly was in her chest, left arm, and head. EMS checked blood sugar and read high on their meter. Patient does not believe she took her insulin this morning and cannot member if she took it yesterday. [facility] Medical History (Updated 10/25/21 @ 15:[address] Pili Jaeger MD) Acquired varus deformity of left foot Acquired varus deformity of right foot Amputation foot, bilat Anemia due to chronic illness Anxiety and depression Atherosclerosis of alt[place] coronary artery of alt[place] heart without angina pectoris Back pain, chronic Bilateral edema of lower extremity Charcot's joint of right foot Chronic renal insufficiency Chronic ulcer of left foot with fat layer exposed Chronic ulcer of right foot with necrosis of muscle COVID-19 (08/28/21) Delayed wound healing Diabetes Diabetic foot ulcer associated with type 2 diabetes mellitus Diabetic infection of left foot Diabetic polyneuropathy Diabetic ulcer of right ankle Elevated troponin Essential (primary) hypertension GERD (gastroesophageal reflux disease) Hemoglobin A1c greater than 9.0% HLD (hyperlipidemia) Hyperparathyroidism, secondary renal Hypertension Iron deficiency anemia Ischemic cardiomyopathy Myocardial infarct Non-compliance Non-smoker Normocytic anemia NSTEMI (non-ST elevated myocardial infarction) (09/20/18) Obesity (BMI 30.0-34.9) Osteomyelitis of left foot RLS (restless legs syndrome) Stage 4 chronic kidney disease TIA (transient ischemic attack) 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 Ulcer of left foot with fat layer exposed Ulcer of left foot with muscle involvement without evidence of necrosis Ulcer of right lower extremity with fat layer exposed Home Medications atorvastatin 80 mg tablet 80 mg PO QHS #90 tablet 11/30/19 [Rx Last Taken 07/05/21] pramipexole 1.5 mg PO BID 09/12/20 [History Last Taken 07/06/21] clopidogrel 75 mg PO DAILY #0 tablet 01/01/21 [Rx Last Taken 07/05/21] isosorbide mononitrate 30 mg PO DAILY 03/03/21 [History Last Taken 07/04/21] oxycodone 5 mg PO BID PRN 07/07/21 [History Last Taken 07/06/21] paroxetine HCl 20 mg PO QHS 07/07/21 [History Last Taken 07/06/21] benzonatate 100 mg PO TID PRN PRN 09/02/21 [History Last Taken Unknown] bupropion HCl 150 mg PO.IVFORM DAILY 09/02/21 [History Last Taken Unknown] cyclobenzaprine 5 mg PO QHS 09/02/21 [History Last Taken Unknown] furosemide 40 mg PO DAILY 09/02/21 [History Last Taken Unknown] cefepime 2 g IV Q12H 35 Days #70 ea 09/07/21 [Rx Last Taken Unknown] carvedilol [Coreg] 6.25 mg PO BID #60 tab 09/08/21 [Rx Last Taken Unknown] magnesium oxide [MagOx] 400 mg PO DAILY #30 tab 09/08/21 [Rx Last Taken Unknown] Lantus Solostar U-100 Insulin 30 unit SUBCUT BID #0 ml 09/14/21 [Rx Last Taken Unknown] [id number]-[id number]-[id number]-[id number]-[id number]-hwg [Ted (with collagen)] 1 packet PO BIDCM #0 ea 09/14/21 [Rx Last Taken Unknown] insulin lispro [Humalog KwikPen Insulin] 5 unit SUBCUT TIDCM #0 ml 09/14/21 [Rx Last Taken Unknown] sodium hypochlorite [HySept] 1 applic TOPICAL DAILY #0 ml 09/14/21 [Rx Last Taken Unknown] Allergy/AdvReac Type Severity Reaction Status Date / Time oxycodone [From OxyContin] Allergy feels Verified 09/09/21 09:50 like I'm drowning Penicillins Allergy swelling Verified 09/09/21 09:50 in throat vancomycin Allergy Itching Verified 09/09/21 09:50 metronidazole AdvReac Nausea Verified 09/09/21 09:50 Family History Mother Diabetes CVA (cerebral vascular accident) Brother CAD (coronary artery disease) CABG X 3 Cancer testicular Diabetes Brother CAD (coronary artery disease) CABG X3 Diabetes Brother CAD (coronary artery disease) Stents Diabetes Sister CAD (coronary artery disease) CABG x 3 CVA (cerebral vascular accident) Diabetes Surgical History History of bilateral carpal tunnel release History of History of coronary artery stent placement (12/31/20) History of foot surgery History of rotator cuff surgery Social History household members: none Smoking Status: Never smoker alcohol intake: never substance use type: does not use caffeine: Yes Type: carbonated beverages Number of servings: 2 ROS ROS ED Constitutional Constitutional ED: Denies chills or fever(s) Eyes Eyes: Denies diplopia ENT ENT ED: Denies rhinorrhea or sore throat Cardiovascular Cardiovascular: Reports chest pain Respiratory/Chest Respiratory/Chest: Denies dyspnea Gastrointestinal Gastrointestinal: Denies abdominal pain or vomiting Musculoskeletal Musculoskeletal: Reports arthralgias Integumentary Denies rash Neurologic Neurologic: Denies headache(s) Psychiatric Psychiatric: Denies anxiety or depression Allergic/Immunologic Allergic/Immunologic ED: Denies urticaria EXAM Physical Exam Const Vital Signs: 10/25/21 12:15 10/25/21 13:15 10/25/21 13:17 Temperature 97.7 F L 97.6 F L Temperature Source Oral Oral Pulse Rate 115 H 107 H Respiratory Rate 16 17 Respiratory Effort Normal Non-Labored Normal Non-Labored Respiratory Pattern Normal Blood Pressure 196/117 H 180/108 H Blood Pressure Mean 143 132 Pulse Ox 97 Oxygen Delivery Method Room Air Room Air 10/25/21 14:38 10/25/21 14:40 Temperature 98.6 F Temperature Source Oral Pulse Rate 120 H 117 H Respiratory Rate 20 H 24 H Respiratory Effort Respiratory Pattern Blood Pressure 200/121 H 200/121 H Blood Pressure Mean 147 147 Pulse Ox 96 97 Oxygen Delivery Method Positive well nourished and well developed General Appearance ED: well developed HEENT Negative for trauma Eyes PERRL and EOMs intact bilaterally Neck supple Chest Wall inspection of chest normal and palpation of chest normal Resp normal respiratory effort and clear to auscultation bilaterally Cardio Rate: tachycardic GI non-tender Auscultation: hypoactive bowel sounds Palpation: soft Neuro oriented x3 Sensorium / Orientation: alert Psych mental status grossly normal Skin no rashes or lesions noted MDM MDM MDM Narrative Medical decision making narrative: EKG, chest x-ray, lab work obtained. Lab Data Attestation: I reviewed the patient's lab results. Labs: Laboratory Results - last 24 hr 10/25/21 10/25/21 10/25/21 12:25 12:35 12:35 WBC 8.6 RBC 3.67 L Hgb 10.2 L Hct 31.1 L MCV 84.7 MCH 27.8 MCHC 32.8 RDW Std Deviation 47.2 H RDW Coeff of Fior 15.2 H Plt Count 281 MPV 11.3 Immature Gran % (Auto) 0.300 Neut % (Auto) 76.4 H Lymph % (Auto) 14.2 L [place] % (Auto) 5.8 Eos % (Auto) 2.7 Baso % (Auto) 0.6 Absolute Neuts (auto) 6.6 Absolute Lymphs (auto) 1.23 Nucleated RBC % 0 Sodium 138 Potassium 4.5 Chloride 105 Carbon Dioxide 22.0 Anion Gap 11 BUN 45 H Creatinine 2.15 H Estim Creat Clear Calc 27.35 Est GFR (MDRD) Af Amer 31 L Est GFR (MDRD) Non-Af 25 L BUN/Creatinine Ratio 20.9 H Glucose 532 H* Calcium 8.2 L Total Bilirubin 0.30 Direct Bilirubin 0.09 AST 28 ALT 51 Alkaline Phosphatase 164 H Troponin I High Sens 60 H Total Protein 7.7 Albumin 2.7 L Globulin 5.0 H Urine Color Urine Clarity Urine pH Ur Specific [place] Urine Protein Urine Glucose (UA) Urine Ketones Urine Occult Blood Urine Nitrite Urine Bilirubin Urine Urobilinogen Ur Leukocyte Esterase Urine RBC Urine WBC Ur Squamous Epith Cells Amorphous Sediment Urine Bacteria Urine Mucus Acetone Level POC Glucose 463 H* 10/25/21 10/25/21 10/25/21 12:35 13:05 14:30 WBC RBC Hgb Hct MCV MCH MCHC RDW Std Deviation RDW Coeff of [place] Plt Count MPV Immature Gran % (Auto) Neut % (Auto) Lymph % (Auto) [place] % (Auto) Eos % (Auto) Baso % (Auto) Absolute Neuts (auto) Absolute Lymphs (auto) Nucleated RBC % Sodium Potassium Chloride Carbon Dioxide Anion Gap BUN Creatinine Estim Creat Clear Calc Est GFR (MDRD) Af Amer Est GFR (MDRD) Non-Af BUN/Creatinine Ratio Glucose Calcium Total Bilirubin Direct Bilirubin AST ALT Alkaline Phosphatase Troponin I High Sens 64 H Total Protein Albumin Globulin Urine Color Yellow Urine Clarity Clear Urine pH 6.0 Ur Specific [place] 1.010 Urine Protein 500 H Urine Glucose (UA) 1000 H Urine Ketones Negative Urine Occult Blood 50 H Urine Nitrite Negative Urine Bilirubin Negative Urine Urobilinogen Normal Ur Leukocyte Esterase Negative Urine RBC 0-5 SEEN Urine WBC 0 SEEN Ur Squamous Epith Cells 0-5 SEEN Amorphous Sediment 1+ Urine Bacteria 0 SEEN Urine Mucus 0 SEEN Acetone Level NEGATIVE POC Glucose Radiography Chest X-Ray - ED: 1 View, Read by ED Physician and Chronic Changes Diagnostic Testing: Clinical Impression(s) from Imaging Studies Chest X-Ray 10/25/21 13:02 IMPRESSION: No active disease. Electronically Signed: Scot Penny MD at 13:30 EST Tel , Service support , EKG Initial EKG: Attestation: I personally reviewed and interpreted this EKG as follows: Interpretation: Sinus Tachycardia (Sinus tach at 114 with no acute ischemia.) Treatment and Re-Evaluation Comments:: Patient's lab work reviewed and does reveal significant hyperglycemia with a blood sugar of 532. Initial troponin is 60. Patient is given 10 units of insulin. After 1 hour blood sugar is down to 319. Blood pressures remained elevated and she is given a dose of labetalol. Repeat troponin obtained and is 64. I did review the patient's prior cardiac records. She last had a stent placed in December 2020. She had a stress test in June that revealed mild abnormality. Patient as well as family member at bedside states that she is not taking her medications that she is supposed to and that she often will forget to take them. With patient being high risk for cardiac disease as well as significant hyperglycemia and hypertension I do feel she should be observed overnight for cycling of enzymes and blood pressure/blood sugar control. I did recommend to her that we have social work work with her as far as ensuring that she is able to take her medications as prescribed. Discharge Plan Triage Chief Complaint: Hyperglycemia ED Provider: Pili Jaeger Dx/Rx/DC Orders Clinical Impression: Hypertension, Chest pain, Hyperglycemia Prescriptions: No Action atorvastatin 80 mg tablet 80 mg PO QHS Qty: 90 RF: 3 pramipexole 1 MG tablet 1.5 mg PO BID RF: 0 clopidogrel 75 MG tablet 75 mg PO DAILY Qty: 0 RF: 0 isosorbide mononitrate 30 mg tablet extended release 24 hr 30 mg PO DAILY RF: 0 paroxetine HCl 20 mg tablet 20 mg PO QHS RF: 0 oxycodone 5 mg tablet 5 mg PO BID PRN (Reason: Pain) RF: 0 benzonatate 100 mg Capsule 100 mg PO TID PRN PRN (Reason: Cough) RF: 0 cyclobenzaprine 5 mg Tablet 5 mg PO QHS RF: 0 bupropion HCl 150 mg PO.IVFORM DAILY RF: 0 furosemide 40 mg Tablet 40 mg PO DAILY RF: 0 cefepime 2 gram recon soln 2 g IV Q12H 35 Days Qty: 70 RF: 0 carvedilol [Coreg] 6.25 mg tablet 6.25 mg PO BID Qty: 60 RF: 0 magnesium oxide [MagOx] 400 mg (241.3 mg magnesium) tablet 400 mg PO DAILY Qty: 30 RF: 0 insulin lispro [Humalog KwikPen Insulin] 100 unit/mL Insulin Pen 5 unit subcut TIDCM Qty: 0 RF: 0 HySept 0.25 % Solution 1 applic topical DAILY Qty: 0 RF: 0 Ted (with collagen) 7-7-1.5 gram Powder In Packet 1 packet PO BIDCM Qty: 0 RF: 0 Lantus Solostar U-100 Insulin 100 unit/mL (3 mL) Insulin Pen 30 unit SUBCUT BID Qty: 0 RF: 0 Primary Care Provider: Raúl Eric Referrals: Raúl Eric MD [Primary Care Provider] - Disposition Disposition: Acute Care Hospital [facility]
[2021-10-25 12:41] LABS: Bedside Glucose 463 mg/dL (70-110)
[2021-10-25 13:01] LABS: Absolute Lymphocyte Count 1.23 X10^3/uL (0.83-4.51); Absolute Neutrophil Count 6.6 X10^3/uL (2.0-7.7); Basophil# 0.05 X10^3/uL; Basophil% 0.6 % (0-1); Eosinophil# 0.23 X10^3/uL; Eosinophils% 2.7 % (0-5); Hematocrit 31.1 % (37-47); Hemoglobin 10.2 g/dL (12.0-15.0); Lymphocyte # 1.23 X10^3/ul (0.83-4.51); Lymphocyte % 14.2 % (19-41); Mean Corp Hgb Conc 32.8 g/dL (32-36); Mean Corpuscular Hgb 27.8 pg (27.0-32.0); Mean Corpuscular Volume 84.7 fL (81-99); Mean Platelet Vol. 11.3 fl (6.2-12.0); Monocyte% 5.8 % (0-10); NRBC Flagged by Analyzer 0 % (0-5); Neutrophil % 76.4 % (47-70); Platelet Count 281 K/mm3 (150-450); RBC Distribution Width CV 15.2 % (11.6-14.6); RBC Distribution Width SD 47.2 fl (35.1-43.9); Red Blood Count 3.67 M/mm3 (4.2-5.4); White Blood Count 8.6 K/mm3 (4.4-11.0)
--- NOTE | 2021-10-25 13:02 | RAD_ITS ---
STUDY: X-RAY CHEST REASON FOR EXAM: Female, 56 years old. cp TECHNIQUE: Single AP portable view of the chest. COMPARISON: 09/01/2021 FINDINGS: The lungs are clear and expanded. Elevated right hemidiaphragm which is unchanged. There is moderate cardiac enlargement. Normal mediastinum and elvie. Normal visualized pulmonary arteries. Normal visualized aortic arch and descending thoracic aorta. Normal visualized thoracic spine. Normal visualized ribs, clavicles, and shoulders. There is no demonstrated abnormality of the visualized soft tissue structures of the upper abdomen. RAD/Chest 1 View (Portable) IMPRESSION: No active disease. Electronically Signed: Scot Penny MD at 13:30 EST Tel , Service support ,
[2021-10-25] MEDS: 0.9% Normal Saline 1,000 ML 1000 ML IV (13:03)
[2021-10-25 13:13] LABS: Bacteria 0 SEEN /hpf (None Seen); Mucous, Urine 0 SEEN /hpf (<or=2+); White Blood Cells 0 SEEN /hpf (0-5)
[2021-10-25 13:14] LABS: AST(SGOT) 28 U/L (15-37); Alanine Aminotransfer ALT/SGPT 51 U/L (13-56); Albumin, Serum 2.7 g/dL (3.2-5.0); Alkaline Phosphatase 164 U/L (45-117); Anion Gap 11 (5-15); BUN 45 mg/dL (7-18); BUN/Creat Ratio 20.9 RATIO (10-20); Bilirubin, Direct 0.09 mg/dL (0.00-0.30); Calcium,Total 8.2 mg/dL (8.5-10.1); Chloride 105 mmol/L (98-107); Creatinine, Serum 2.15 mg/dL (0.55-1.02); EST Glomerular Filtration Rate 25 mL/min (>60); Est Glom Filt Rate - Afr Amer 31 mL/min (>60); Estimated Creatinine Clearance 27.35 ml/min; Glucose 532 mg/dL (74-106); Potassium 4.5 mmol/L (3.5-5.1); Protein, Total 7.7 g/dL (6.4-8.2); Sodium Level 138 mmol/L (136-145); Troponin-I HS 60 pg/mL (3.0-54.0)
[2021-10-25 13:37] LABS: Color, Urine Yellow (Yellow); Glucose, Dipstick 1000 mg/dl (Normal); Ketone-Dipstick Negative (Negative); Leukocyte Esterase-Dipstick Negative /ul (Negative); Nitrite-Dipstick Negative (Negative); Occult Blood-Urine 50 /ul (Negative); Protein-Dipstick 500 mg/dl (Negative); Urine Bilirubin Dipstick Negative (Negative); Urine Clarity Clear (Clear); Urine Urobilinogen Normal (Normal)
[2021-10-25] MEDS: Insulin Lispro 100 UNIT/ML INSULN.PEN 10 UNIT SC (13:49)
[2021-10-25 13:56] LABS: Amorphous Sediment 1+; Red Blood Cells-Urine 0-5 SEEN /hpf (0-5); Squamous Epithelial Cells - UA 0-5 SEEN /hpf (5-10)
[2021-10-25] MEDS: Labetalol (Prefilled) 20 MG/4 ML 10 MG IV (15:16)
[2021-10-25 15:19] LABS: Troponin-I HS 64 pg/mL (3.0-54.0)
[2021-10-25 15:25] LABS: Bedside Glucose 319 mg/dL (70-110)
[2021-10-25] MEDS: LORazepam 2 MG/ML Syringe 0.5 MG IV (15:39)
--- NOTE | 2021-10-25 16:25 | HP.PCM_ITS ---
Documented by User: BRIAN Fitzgerald 10/25/21 16:51 HPI - General General Date of Admission: 10/25/21 Date of Service: 10/25/21 Chief Complaint: Chest Pain HPI Narrative DIONY ROCHA, is a 56 F who presents with chest pain however patient is unable to qualify chest pain. Patient states she does not know when she last took her medications. Patient was hospitalized in August 2021 for COVID and diabetic foot ulcers and was subsequently sent to [facility] for rehab and nursing care for diabetic foot wound. Patient recently was sent home but has not been taking any of her medications as prescribed and has not been monitoring her blood sugars as directed. Patient's mother at bedside states that she told her that she cannot find her glucometer and often does not take her medications. Upon evaluation in ER patient was noted to be hypertensive as well as hyperglycemic which is consistent with patient's noncompliance with medication regimen. FORMERLY [facility] Medical History Acquired varus deformity of left foot Acquired varus deformity of right foot Amputation foot, bilat Anemia due to chronic illness Anxiety and depression Atherosclerosis of mo[place] coronary artery of mo[place] heart without angina pectoris Back pain, chronic Bilateral edema of lower extremity Charcot's joint of right foot Chronic renal insufficiency Chronic ulcer of left foot with fat layer exposed Chronic ulcer of right foot with necrosis of muscle COVID-19 (08/28/21) Delayed wound healing Diabetes Diabetic foot ulcer associated with type 2 diabetes mellitus Diabetic infection of left foot Diabetic polyneuropathy Diabetic ulcer of right ankle Elevated troponin Essential (primary) hypertension GERD (gastroesophageal reflux disease) Hemoglobin A1c greater than 9.0% HLD (hyperlipidemia) Hyperparathyroidism, secondary renal Hypertension Iron deficiency anemia Ischemic cardiomyopathy Myocardial infarct Non-compliance Non-smoker Normocytic anemia NSTEMI (non-ST elevated myocardial infarction) (09/20/18) Obesity (BMI 30.0-34.9) Osteomyelitis of left foot RLS (restless legs syndrome) Stage 4 chronic kidney disease TIA (transient ischemic attack) 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 Ulcer of left foot with fat layer exposed Ulcer of left foot with muscle involvement without evidence of necrosis Ulcer of right lower extremity with fat layer exposed Home Medications atorvastatin 80 mg tablet 80 mg PO QHS #90 tablet 02/21/20 [Rx Last Taken 07/05/21] pramipexole 1.5 mg PO BID 09/12/20 [History Last Taken 07/06/21] isosorbide mononitrate 30 mg PO DAILY 03/03/21 [History Last Taken 07/04/21] oxycodone 5 mg PO BID PRN 07/07/21 [History Last Taken 07/06/21] paroxetine HCl 20 mg PO QHS 07/07/21 [History Last Taken 07/06/21] benzonatate 100 mg PO TID PRN PRN 09/02/21 [History Last Taken Unknown] bupropion HCl 150 mg PO.IVFORM DAILY 09/02/21 [History Last Taken Unknown] cyclobenzaprine 5 mg PO QHS 09/02/21 [History Last Taken Unknown] furosemide 40 mg PO DAILY 09/02/21 [History Last Taken Unknown] cefepime 2 g IV Q12H 35 Days #70 ea 09/07/21 [Rx Last Taken Unknown] carvedilol [Coreg] 6.25 mg PO BID #60 tab 09/08/21 [Rx Last Taken Unknown] magnesium oxide [MagOx] 400 mg PO DAILY #30 tab 09/08/21 [Rx Last Taken Unknown] Lantus Solostar U-100 Insulin 30 unit SUBCUT BID #0 ml 09/14/21 [Rx Last Taken Unknown] [id number]-vovamf-hu-mda [Ted (with collagen)] 1 packet PO BIDCM #0 ea 09/14/21 [Rx Last Taken Unknown] insulin lispro [Humalog KwikPen Insulin] 5 unit SUBCUT TIDCM #0 ml 09/14/21 [Rx Last Taken Unknown] sodium hypochlorite [HySept] 1 applic TOPICAL DAILY #0 ml 09/14/21 [Rx Last Taken Unknown] clopidogrel 75 mg PO DAILY 10/25/21 [History Last Taken Unknown] Allergy/AdvReac Type Severity Reaction Status Date / Time oxycodone [From OxyContin] Allergy feels Verified 09/09/21 09:50 like I'm drowning Penicillins Allergy swelling Verified 09/09/21 09:50 in throat vancomycin Allergy Itching Verified 09/09/21 09:50 metronidazole AdvReac Nausea Verified 09/09/21 09:50 Family History Mother Diabetes CVA (cerebral vascular accident) Brother CAD (coronary artery disease) CABG X 3 Cancer testicular Diabetes Brother CAD (coronary artery disease) CABG X3 Diabetes Brother CAD (coronary artery disease) Stents Diabetes Sister CAD (coronary artery disease) CABG x 3 CVA (cerebral vascular accident) Diabetes Surgical History History of bilateral carpal tunnel release History of History of coronary artery stent placement (12/31/20) History of foot surgery History of rotator cuff surgery Social History household members: none Smoking Status: Never smoker alcohol intake: never substance use type: does not use caffeine: Yes Type: carbonated beverages Number of servings: 2 ROS Constitutional Constitutional: Reports fatigue and weakness; Denies anorexia, chills or malaise Cardiovascular Cardiovascular: Reports chest pain; Denies edema, orthopnea, palpitations or syncope Respiratory/Chest Respiratory/Chest: Denies cough, shortness of breath at rest, shortness of breath with exertion or wheezing Gastrointestinal Gastrointestinal: Denies abdominal pain, constipation, diarrhea, nausea or vomiting Genitourinary Genitourinary: Denies dysuria Musculoskeletal Musculoskeletal: Denies back pain, extremity pain, joint pain, joint stiffness or joint swelling Integumentary Integumentary: Denies dry skin Neurologic Neurologic: Reports weakness; Denies abnormal gait, abnormal speech, confusion, dizziness or focal weakness Psychiatric Psychiatric: Denies anxiety or depression Endocrine Endocrinology: Denies change in body appearance Hematologic/Lymphatic Hematologic/Lymphatic: Denies anemia, easy bleeding or easy bruising Vital Signs Vital Signs Vital Signs: 10/25/21 12:15 10/25/21 13:15 10/25/21 13:17 Temperature 97.7 F L 97.6 F L Temperature Source Oral Oral Pulse Rate 115 H 107 H Respiratory Rate 16 17 Respiratory Effort Normal Non-Labored Normal Non-Labored Respiratory Pattern Normal Blood Pressure 196/117 H 180/108 H Blood Pressure Mean 143 132 Pulse Ox 97 Oxygen Delivery Method Room Air Room Air 10/25/21 14:38 10/25/21 14:40 10/25/21 15:56 Temperature 98.6 F 98.4 F Temperature Source Oral Oral Pulse Rate 120 H 117 H 101 H Respiratory Rate 20 H 24 H 20 H Respiratory Effort Respiratory Pattern Blood Pressure 200/121 H 200/121 H 172/81 H Blood Pressure Mean 147 147 111 Pulse Ox 96 97 Oxygen Delivery Method 10/25/21 16:01 Temperature Temperature Source Pulse Rate 93 Respiratory Rate 17 Respiratory Effort Respiratory Pattern Blood Pressure 187/93 H Blood Pressure Mean 124 Pulse Ox Oxygen Delivery Method Room Air Weight Weight: 209 lb 14.081 oz Body Mass Index (BMI) 33.8 Physical Exam Const alert, oriented x3 and no apparent distress General Appearance: cooperative HEENT normocephalic and head/scalp atraumatic Eyes conjunctivae normal and no scleral icterus Neck full ROM and supple General: trachea midline Resp normal respiratory effort, normal air movement and clear to auscultation bilaterally Cardio regular rate, regular rhythm, S1 normal heart sound, S2 normal heart sound and peripheral pulses 2+ throughout GI normal to inspection, nondistended, normoactive bowel sounds, soft to palpation and non-tender Extremity normal capillary refill and no clubbing, cyanosis or edema General Extremity: no tenderness to palpation of joints or extremities Skin General Skin Exam: no breakdown and turgor normal Lesions: no lesions Rashes: no rashes Neuro oriented x3, moves all extremities, no focal motor deficits and no sensory deficits noted Sensorium / Orientation: lethargic Motor Exam: general weakness Psych thought process normal, cooperative and affect normal Appearance: appropriate Results Lab / Micro Data Result Diagrams: 10/25/21 12:35 10/25/21 12:35 Labs: Laboratory Results - last 24 hr 10/25/21 12:25: POC Glucose 463 H* 10/25/21 12:35: WBC 8.6, RBC 3.67 L, Hgb 10.2 L, Hct 31.1 L, MCV 84.7, MCH 27.8, MCHC 32.8, RDW Std Deviation 47.2 H, RDW Coeff of F[place] 15.2 H, Plt Count 281, MPV 11.3, Immature Gran % (Auto) 0.300, Neut % (Auto) 76.4 H, Lymph % (Auto) 14.2 L, [place] % (Auto) 5.8, Eos % (Auto) 2.7, Baso % (Auto) 0.6, Absolute Neuts (auto) 6.6, Absolute Lymphs (auto) 1.23, Nucleated RBC % 0 10/25/21 12:35: Sodium 138, Potassium 4.5, Chloride 105, Carbon Dioxide 22.0, Anion Gap 11, BUN 45 H, Creatinine 2.15 H, Estim Creat Clear Calc 27.35, Est GFR (MDRD) Af Amer 31 L, Est GFR (MDRD) Non-Af 25 L, BUN/Creatinine Ratio 20.9 H, Glucose 532 H*, Calcium 8.2 L, Total Bilirubin 0.30, Direct Bilirubin 0.09, AST 28, ALT 51, Alkaline Phosphatase 164 H, Troponin I High Sens 60 H, Total Protein 7.7, Albumin 2.7 L, Globulin 5.0 H 10/25/21 12:35: Acetone Level NEGATIVE 10/25/21 13:05: Urine Color Yellow, Urine Clarity Clear, Urine pH 6.0, Ur Specific [place] 1.010, Urine Protein 500 H, Urine Glucose (UA) 1000 H, Urine Ketones Negative, Urine Occult Blood 50 H, Urine Nitrite Negative, Urine Bilirubin Negative, Urine Urobilinogen Normal, Ur Leukocyte Esterase Negative, Urine RBC 0-5 SEEN, Urine WBC 0 SEEN, Ur Squamous Epith Cells 0-5 SEEN, Amorphous Sediment 1+, Urine Bacteria 0 SEEN, Urine Mucus 0 SEEN 10/25/21 14:30: Troponin I High Sens 64 H 10/25/21 15:20: POC Glucose 319 H Radiology Impression Chest X-Ray 10/25/21 13:02 IMPRESSION: No active disease. Electronically Signed: Scot Penny MD at 13:30 EST Tel , Service support , Assessment & Plan Assessment/Plan (1) Hyperglycemia: (2) Chest pain: QUALIFIERS: Chest pain type: unspecified Qualified Code(s): R07.9 - Chest pain, unspecified (3) Hypertension: QUALIFIERS: Hypertension type: primary hypertension Qualified Code(s): I10 - Essential (primary) hypertension PLAN: 1. Chest pain -Admit to PCU for cardiac monitoring -Trend cardiac enzymes, if enzymes trending up significantly we will consider cardiology consult -Patient received echocardiogram 09/02/2021 which demonstrates EF 55% -Patient is also had a stress test as recently as 07/08/2021 which showed mildly abnormal pharmacological myocardial perfusion with mild anterior ischemia, previous anterior infarct noted, left ventricular systolic dysfunction. -Patient is unable to qualify type, intensity, length of chest pain. -As needed nitroglycerin ordered -BMP, CBC, lipid profile ordered for a.m. -Daily EKG is ordered -Oxygen therapy as needed per protocol -PT and OT to eval and treat 2. Hypertension -Secondary to patient's noncompliance with medication regimen -We will reinitiate patient on cardiac medications including carvedilol furosemide and isosorbide -Vital signs per protocol 3. Hyperglycemia -Patient's initial blood sugar 532, patient received 10 units IV insulin -ACH S blood sugars with sliding scale insulin ordered as well as patient's home medication regimen including preprandial dosing along with long-acting insulin -Likely secondary to patient's noncompliance, patient's mother states that patient told her that she cannot find her glucometer and has not been testing her blood sugars regularly -Normal saline at 75 mL/h ordered 4. Chronic kidney disease stage IIIb -BUN and creatinine consistent with baseline 5. Diabetic foot ulcers -Patient has been following at wound center with . -Wound nurse consulted -IV antibiotics completed on 10/13/2021 -Nonweightbearing to right foot DVT prophylaxis-subcu Lovenox This patient was seen by BRIAN Fitzgerald under the supervision of Dr. Perez. 19 minutes spent in clinical coordination of patient's plan of care. Documented by User: Dr. Raúl Perez DO 10/25/21 17:50 HPI - General General Date of Admission: 10/25/21 [facility] Medical History Acquired varus deformity of left foot Acquired varus deformity of right foot Amputation foot, bilat Anemia due to chronic illness Anxiety and depression Atherosclerosis of mohegan coronary artery of mo[place]gan heart without angina pectoris Back pain, chronic Bilateral edema of lower extremity Charcot's joint of right foot Chronic renal insufficiency Chronic ulcer of left foot with fat layer exposed Chronic ulcer of right foot with necrosis of muscle COVID-19 (08/28/21) Delayed wound healing Diabetes Diabetic foot ulcer associated with type 2 diabetes mellitus Diabetic infection of left foot Diabetic polyneuropathy Diabetic ulcer of right ankle Elevated troponin Essential (primary) hypertension GERD (gastroesophageal reflux disease) Hemoglobin A1c greater than 9.0% HLD (hyperlipidemia) Hyperparathyroidism, secondary renal Hypertension Iron deficiency anemia Ischemic cardiomyopathy Myocardial infarct Non-compliance Non-smoker Normocytic anemia NSTEMI (non-ST elevated myocardial infarction) (09/20/18) Obesity (BMI 30.0-34.9) Osteomyelitis of left foot RLS (restless legs syndrome) Stage 4 chronic kidney disease TIA (transient ischemic attack) 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 Ulcer of left foot with fat layer exposed Ulcer of left foot with muscle involvement without evidence of necrosis Ulcer of right lower extremity with fat layer exposed Home Medications atorvastatin 80 mg tablet 80 mg PO QHS #90 tablet 11/30/19 [Rx Last Taken 07/05/21] pramipexole 1.5 mg PO BID 09/12/20 [History Last Taken 07/06/21] isosorbide mononitrate 30 mg PO DAILY 03/03/21 [History Last Taken 07/04/21] oxycodone 5 mg PO BID PRN 07/07/21 [History Last Taken 07/06/21] paroxetine HCl 20 mg PO QHS 07/07/21 [History Last Taken 07/06/21] benzonatate 100 mg PO TID PRN PRN 09/02/21 [History Last Taken Unknown] bupropion HCl 150 mg PO.IVFORM DAILY 09/02/21 [History Last Taken Unknown] cyclobenzaprine 5 mg PO QHS 09/02/21 [History Last Taken Unknown] furosemide 40 mg PO DAILY 09/02/21 [History Last Taken Unknown] cefepime 2 g IV Q12H 35 Days #70 ea 09/07/21 [Rx Last Taken Unknown] carvedilol [Coreg] 6.25 mg PO BID #60 tab 09/08/21 [Rx Last Taken Unknown] magnesium oxide [MagOx] 400 mg PO DAILY #30 tab 09/08/21 [Rx Last Taken Unknown] Lantus Solostar U-100 Insulin 30 unit SUBCUT BID #0 ml 09/14/21 [Rx Last Taken Unknown] [id number]-[id number]-UmVRA-frxvud-ra-kqc [Ted (with collagen)] 1 packet PO BIDCM #0 ea 09/14/21 [Rx Last Taken Unknown] insulin lispro [Humalog KwikPen Insulin] 5 unit SUBCUT TIDCM #0 ml 09/14/21 [Rx Last Taken Unknown] sodium hypochlorite [HySept] 1 applic TOPICAL DAILY #0 ml 09/14/21 [Rx Last Taken Unknown] clopidogrel 75 mg PO DAILY 10/25/21 [History Last Taken Unknown] Allergy/AdvReac Type Severity Reaction Status Date / Time oxycodone [From OxyContin] Allergy feels Verified 09/09/21 09:50 like I'm drowning Penicillins Allergy swelling Verified 09/09/21 09:50 in throat vancomycin Allergy Itching Verified 09/09/21 09:50 metronidazole AdvReac Nausea Verified 09/09/21 09:50 Family History Mother Diabetes CVA (cerebral vascular accident) Brother CAD (coronary artery disease) CABG X 3 Cancer testicular Diabetes Brother CAD (coronary artery disease) CABG X3 Diabetes Brother CAD (coronary artery disease) Stents Diabetes Sister CAD (coronary artery disease) CABG x 3 CVA (cerebral vascular accident) Diabetes Surgical History History of bilateral carpal tunnel release History of History of coronary artery stent placement (12/31/20) History of foot surgery History of rotator cuff surgery Social History household members: none Smoking Status: Never smoker alcohol intake: never substance use type: does not use caffeine: Yes Type: carbonated beverages Number of servings: 2 Results Lab / Micro Data Result Diagrams: 10/25/21 12:35 10/25/21 12:35 Charges/Coding Addendum Addendum: Patient was seen and examined independently from Dayami Salmon, she came to the ER today with complaints of chest pain, according to the emergency room physician, patient could not give a fluent narrative of what the chest pain was like, where it was located, and when it came on. Patient has had a past history of coronary artery disease, she was in an extended care facility [facility] due to wounds on her feet, it is likely that she was not taking her medications properly when she went home. Patient states she is getting pressure from people calling her on the phone and gets in arguments with them and then does not take her medications. She cannot describe the chest pain she had today, she states that went down her left arm 1 time. She does not know when the chest pain went away because she fell asleep in the emergency room. Work-up in the emergency room showed her CBC to be unremarkable except for hemoglobin of 10.2, chemistry profile was abnormal for a BUN of 45, creatinine of 2.15, and blood sugar of 532. Her anion gap was normal. High sensitive troponin was slightly elevated at 64. Patient's EKG showed a sinus tachycardia without evidence of ischemic changes, patient had a chest x-ray which showed no active disease. On examination she appeared in good health and spirits, she does not appear to be in any distress. Vital signs as documented. Skin warm and dry and without overt rashes. Neck without JVD, thyroid appears normal, trachea is midline, neck is supple. Lungs clear, normal air movement was noted. Heart exam notable for regular rhythm, normal sounds and absence of murmurs, rubs or gallops. Abdomen unremarkable and without evidence of organomegaly, masses, or abdominal aortic enlargement, bowel sounds are present in all 4 quadrants, no abdominal tendern ess was noted. Extremities nonedematous, no cyanosis was noted, no clubbing was noted. Patient's lower legs were wrapped with surgical dressing, this was not removed for inspection of the area. Neuro: Cranial nerves II through XII are grossly intact, no focal motor deficits were noted, sensation to light touch, motor exam 5/5 throughout. Psych: Patient is alert and oriented x3, she does not appear anxious or depressed, she does not appear agitated, patient has a flat affect, she is a poor informant Impression #1 chest pain-etiology unclear, patient is a very poor informant, she will be ad mitted to PCU, cardiac enzymes will be cycled, if these elevate further she will need to be seen in consultation by cardiology. Patient underwent a cardiac catheterization on 12/30/2020, it appears that she had a stent placed in her mid and distal LAD area. Patient then underwent a stress test on 07/08/2021, she had been admitted to the hospital for chest pain at that time, and it showed mild anterior ischemia with an EF of 35%. At that time it was recommended by cardiology that her medications be adjusted. Her next cardiovascular test in this medical record was on 09/02/2021-patient had an echocardiogram done at that point which showed an EF of 55%. Around that time patient had COVID-19 infection. #2 uncontrolled type 2 diabetes-secondary to noncompliance, patient will be given IV fluids, she will be started on insulin-basal and short acting insulin- she will have fingerstick blood sugars monitored and will receive sliding scale insulin. #3 coronary artery disease-last time patient had a cardiac catheterization was in December 2020, she had a stent placed in her LAD at that point. Patient is not on aspirin and Plavix-she is only on Plavix, a notation made in September 2021 when the patient was discharged from the hospital here stated that the patient told that examiner that she cannot take aspirin due to kidney problems. Patient will be placed back on a baby aspirin here in the hospital. #4 chronic kidney disease stage IV-lab will be monitored, blood sugars will be brought under control #5 uncontrolled hypertension-secondary to poor compliance with medications, patient will be started back on what is believed to be her home medications, she may have to have additional blood pressure medications added. #6 hyperlipidemia-patient will need to be on a statin #7 diabetic polyneuropathy-blood sugars will need to be controlled better, patient will need to understand that this is a consequence of poor blood sugar control #8 elevated troponin-etiology unclear at this point, patient has had a history in the past of elevated troponin. #9 neuropathic diabetic foot ulcerations-wound care will see the patient I have reviewed Dayami Salmon's history and physical including her medical assessment and plan of care and with the above additions, endorse it. Total cl inical time spent on the patient by myself: 62 minutes Visit Charges Inpatient E&M: 42689 Init Hosp L3
--- NOTE | 2021-10-25 17:26 | EKG12_ITS ---
Test Reason : CP ADMIT Blood Pressure : / mmHG Vent. Rate : 099 BPM Atrial Rate : 099 BPM P-R Int : 162 ms QRS Dur : 090 ms QT Int : 362 ms P-R-T Axes : 067 -06 058 degrees QTc Int : 464 ms Normal sinus rhythm Nonspecific T wave abnormality Prolonged QT Abnormal ECG When compared with ECG of 25-OCT-2021 12:20, MANUAL COMPARISON REQUIRED, DATA IS UNCONFIRMED Confirmed by OTTO DELVALLE, DOMINIQUE ([id number]), video editor HARINI PHAM ([id number]) on 10/27/2021 9:27:52 AM Referred By: DR FLOWERS Confirmed By:DOMINIQUE MENJIVAR MD
--- NOTE | 2021-10-25 17:27 | PCS.PANDOC ---
PANDEMIC DOCUMENTATION INITIATED: Date: 05/25/2021 Time: 190
[2021-10-25] MEDS: Juven (unflavored) Packet 1 PACKET PO (18:27)
[2021-10-25] MEDS: 0.9% Normal Saline 1,000 ML 75 ML IV (18:28)
[2021-10-25] MEDS: Insulin Lispro 100 UNIT/ML INSULN.PEN SC ×3 (18:29→21:44)
[2021-10-25 18:35] LABS: Bedside Glucose 214 mg/dL (70-110)
[2021-10-25 19:59] LABS: Troponin-I HS 66 pg/mL (3.0-54.0)
[2021-10-25] MEDS: Carvedilol 6.25 MG Tablet PO (21:38)
[2021-10-25] MEDS: Atorvastatin Calcium 80 MG Tablet PO (21:38)
[2021-10-25] MEDS: Pramipexole Di-HCl 0.5 MG Tablet 1.5 MG PO (21:39)
[2021-10-25] MEDS: Paroxetine 20 MG Tablet PO (21:41)
[2021-10-25] MEDS: cycloBENZAPRine HCl 5 MG TABLET PO (21:41)
[2021-10-26] VITALS (12 sets, daily range): BP systolic 142–165; BP diastolic 72–95; PULSE 84–101; RESP 14–20; TEMP 36.4–36.7; O2SAT 94–100
[2021-10-26] MEDS: Acetaminophen 325 MG Tablet 650 MG PO ×2 (00:50→18:53)
[2021-10-26 01:06] LABS: Bedside Glucose 194 mg/dL (70-110)
[2021-10-26] MEDS: oxyCODONE 5 MG Tablet PO ×2 (02:54→18:53)
[2021-10-26 06:43] LABS: Absolute Lymphocyte Count 1.39 X10^3/uL (0.83-4.51); Absolute Neutrophil Count 5.7 X10^3/uL (2.0-7.7); Basophil# 0.04 X10^3/uL; Basophil% 0.5 % (0-1); Eosinophil# 0.25 X10^3/uL; Eosinophils% 3.2 % (0-5); Hematocrit 27.5 % (37-47); Lymphocyte # 1.39 X10^3/ul (0.83-4.51); Lymphocyte % 17.6 % (19-41); Mean Corp Hgb Conc 32.7 g/dL (32-36); Mean Corpuscular Hgb 28.1 pg (27.0-32.0); Mean Corpuscular Volume 85.9 fL (81-99); Mean Platelet Vol. 11.1 fl (6.2-12.0); Monocyte# 0.49 X10^3/uL; Monocyte% 6.2 % (0-10); NRBC Flagged by Analyzer 0 % (0-5); Neutrophil # 5.71 X10^3/uL (2.7-7.7); Neutrophil % 72.2 % (47-70); Platelet Count 250 K/mm3 (150-450); RBC Distribution Width CV 15.6 % (11.6-14.6); RBC Distribution Width SD 48.9 fl (35.1-43.9); White Blood Count 7.9 K/mm3 (4.4-11.0)
[2021-10-26] MEDS: Insulin Lispro 100 UNIT/ML INSULN.PEN SC ×6 (06:48→22:01)
[2021-10-26] MEDS: 0.9% Normal Saline 1,000 ML 75 ML IV ×2 (06:53→17:18)
[2021-10-26 06:55] LABS: Bedside Glucose 190 mg/dL (70-110)
[2021-10-26 07:23] LABS: BUN 38 mg/dL (7-18); BUN/Creat Ratio 20.9 RATIO (10-20); Calcium,Total 7.7 mg/dL (8.5-10.1); Chloride 114 mmol/L (98-107); Cholesterol 236 mg/dL (200); Creatinine, Serum 1.82 mg/dL (0.55-1.02); EST Glomerular Filtration Rate 31 mL/min (>60); Est Glom Filt Rate - Afr Amer 37 mL/min (>60); Estimated Creatinine Clearance 32.31 ml/min; Glucose 183 mg/dL (74-106); Potassium 3.8 mmol/L (3.5-5.1); Sodium Level 143 mmol/L (136-145); Triglycerides 226 mg/dL
[2021-10-26 07:24] LABS: Anion Gap 6 (5-15); High Density Lipoprotein 46 mg/dL; Very Low Density Lipoprotein 45 mg/dL (5-40)
--- NOTE | 2021-10-26 08:03 | NURSING ---
Family called this am stating patient had expressed intentions of killing herself. This RN assessed patient immediately. Pt stated she had no thoughts of killing herself and that there was no plan. Pt stated I just told them I thought I was dying because I am in the hospital.
[2021-10-26] MEDS: Pramipexole Di-HCl 0.5 MG Tablet 1.5 MG PO ×2 (08:27→22:00)
[2021-10-26] MEDS: Juven (unflavored) Packet 1 PACKET PO (08:27)
[2021-10-26] MEDS: Enoxaparin 30 MG/0.3 ML Syringe SC (08:27)
[2021-10-26] MEDS: Clopidogrel Bisulfate 75 MG Tablet PO (08:28)
[2021-10-26] MEDS: Magnesium Chloride 64 MG Delay Rel.Tablet 128 MG PO (08:28)
[2021-10-26] MEDS: Isosorbide Mononitrate 30 MG Tablet PO (08:28)
[2021-10-26] MEDS: Aspirin E.C. 81 MG Tablet PO (08:29)
[2021-10-26] MEDS: Carvedilol 6.25 MG Tablet PO ×2 (08:29→22:00)
[2021-10-26] MEDS: Furosemide 40 MG Tablet PO (08:29)
[2021-10-26] MEDS: buPROPion (XL) 150 MG TABLET.XL PO (08:30)
[2021-10-26 09:15] LABS: Bedside Glucose 150 mg/dL (70-110)
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
--- NOTE | 2021-10-26 11:41 | WOUNDNOTE ---
wound photo: left plantar foot
--- NOTE | 2021-10-26 12:05 | CASEMGMT ---
This RN CM to room to complete CM assessment and therapy is at bedside with pt. CM to attempt later. S[place]en RN CM
--- NOTE | 2021-10-26 13:03 | PCM.PN.HOSP ---
Subjective Subjective Patient seen and examined. Patient sitting in bed no distress noted. Discussed with patient need for her to take responsibility for her medications and blood sugar testing, patient agrees but is defensive and states that she has been taking her medications at home as prescribed despite telling me last night that she has not taken her medications for more than a couple days. Objective Data Objective Data Vital Signs: Vital Signs Temp Pulse Resp BP Pulse Ox 97.7 F L 87 20 H 142/82 H 94 10/26/21 12:22 10/26/21 12:22 10/26/21 12:22 10/26/21 12:22 10/26/21 12:22 Oxygen Delivery Method Room Air Weight: 195 lb 1.745 oz Body Mass Index (BMI) 31.4 Intake & Output: Intake and Output for Last 24 Hours 10/24/21 10/25/21 10/26/21 23:59 23:59 23:59 Intake Total 1000 / 1240 1411.25 / 1411.25 Output Total 850 / 850 Balance 1000 / 990 561.25 / 561.25 Lab / Micro Data Result Diagrams: 10/26/21 05:33 10/26/21 05:33 Labs: Laboratory Results - last 24 hr 10/25/21 12:35: Sodium 138, Potassium 4.5, Chloride 105, Carbon Dioxide 22.0, Anion Gap 11, BUN 45 H, Creatinine 2.15 H, Estim Creat Clear Calc 27.35, Est GFR (MDRD) Af Amer 31 L, Est GFR (MDRD) Non-Af 25 L, BUN/Creatinine Ratio 20.9 H, Glucose 532 H*, Calcium 8.2 L, Total Bilirubin 0.30, Direct Bilirubin 0.09, AST 28, ALT 51, Alkaline Phosphatase 164 H, Troponin I High Sens 60 H, Total Protein 7.7, Albumin 2.7 L, Globulin 5.0 H 10/25/21 13:05: Urine Color Yellow, Urine Clarity Clear, Urine pH 6.0, Ur Specific [place] 1.010, Urine Protein 500 H, Urine Glucose (UA) 1000 H, Urine Ketones Negative, Urine Occult Blood 50 H, Urine Nitrite Negative, Urine Bilirubin Negative, Urine Urobilinogen Normal, Ur Leukocyte Esterase Negative, Urine RBC 0-5 SEEN, Urine WBC 0 SEEN, Ur Squamous Epith Cells 0-5 SEEN, Amorphous Sediment 1+, Urine Bacteria 0 SEEN, Urine Mucus 0 SEEN 10/25/21 14:30: Troponin I High Sens 64 H 10/25/21 15:20: POC Glucose 319 H 10/25/21 18:26: POC Glucose 214 H 10/25/21 19:05: Troponin I High Sens 66 H 10/25/21 21:35: POC Glucose 194 H 10/26/21 05:33: WBC 7.9, RBC 3.20 L, Hgb 9.0 L, Hct 27.5 L, MCV 85.9, MCH 28.1, MCHC 32.7, RDW Std Deviation 48.9 H, RDW Coeff of Fior 15.6 H, Plt Count 250, MPV 11.1, Immature Gran % (Auto) 0.300, Neut % (Auto) 72.2 H, Lymph % (Auto) 17.6 L, Blair % (Auto) 6.2, Eos % (Auto) 3.2, Baso % (Auto) 0.5, Absolute Neuts (auto) 5.7, Absolute Lymphs (auto) 1.39, Nucleated RBC % 0 10/26/21 05:33: Sodium 143, Potassium 3.8, Chloride 114 H, Carbon Dioxide 23.0, Anion Gap 6, BUN 38 H, Creatinine 1.82 H, Estim Creat Clear Calc 32.31, Est GFR (MDRD) Af Amer 37 L, Est GFR (MDRD) Non-Af 31 L, BUN/Creatinine Ratio 20.9 H, Glucose 183 H, Calcium 7.7 L, Triglycerides 226 H, Cholesterol 236 H, LDL Cholesterol 145 H, VLDL Cholesterol 45 H, HDL Cholesterol 46 10/26/21 06:46: POC Glucose 190 H 10/26/21 08:19: POC Glucose 150 H Radiography Diagnostic Testing: Radiology Impression Chest X-Ray 10/25/21 13:02 IMPRESSION: No active disease. Electronically Signed: Scot Penny MD at 13:30 EST Tel , Service support , Physical Exam Const alert, oriented x3 and no apparent distress General Appearance: cooperative HEENT normocephalic and head/scalp atraumatic Eyes conjunctivae normal and no scleral icterus Neck full ROM and supple General: trachea midline Resp normal respiratory effort, normal air movement and clear to auscultation bilaterally Cardio regular rate, regular rhythm, S1 normal heart sound, S2 normal heart sound and peripheral pulses 2+ throughout GI normal to inspection, nondistended, normoactive bowel sounds, soft to palpation and non-tender Extremity normal capillary refill and no clubbing, cyanosis or edema General Extremity: no tenderness to palpation of joints or extremities Skin General Skin Exam: no breakdown and turgor normal Lesions: no lesions Rashes: no rashes Neuro oriented x3, moves all extremities, no focal motor deficits and no sensory deficits noted Sensorium / Orientation: lethargic Motor Exam: general weakness Psych thought process normal, cooperative and affect normal Appearance: appropriate Assessment & Plan Assessment/Plan (1) Hyperglycemia: (2) Chest pain: QUALIFIERS: Chest pain type: unspecified Qualified Code(s): R07.9 - Chest pain, unspecified (3) Hypertension: QUALIFIERS: Hypertension type: primary hypertension Qualified Code(s): I10 - Essential (primary) hypertension PLAN: 1. Chest pain -Troponin 60, 64, 66 respectively -Patient received echocardiogram 09/02/2021 which demonstrates EF 55% -Patient is also had a stress test as recently as 07/08/2021 which showed mildly abnormal pharmacological myocardial perfusion with mild anterior ischemia, previous anterior infarct noted, left ventricular systolic dysfunction. -Patient denies chest pain today 2. Hypertension -Secondary to patient's noncompliance with medication regimen -Continue carvedilol, furosemide, isosorbide -Vital signs per protocol, currently stable 3. Hyperglycemia -Patient's initial blood sugar 532, all patient's blood sugar is now in the 190s -ACH S blood sugars with sliding scale insulin ordered as well as patient's home medication regimen including preprandial dosing along with long-acting insulin -Normal saline at 75 mL/h ordered -Patient will need a prescription for new glucometer and testing strips upon discharge home 4. Chronic kidney disease stage IIIb -BUN and creatinine consistent with baseline 5. Diabetic foot ulcers -Patient has been following at wound center with . -Wound nurse consulted -IV antibiotics completed on 10/13/2021 -Nonweightbearing to right foot DVT prophylaxis-subcu Lovenox This patient was seen by RONNI FitzgeraldC under the supervision of Dr. Kotsonis. 12 minutes spent in clinical coordination of patient's plan of care.
--- NOTE | 2021-10-26 13:50 | CASEMGMT ---
KELSIE IRELAND assessment: Face to Face with patient for initial transition planning/care coordination assessment. RN BEKA introduced self and role at [facility], pt voices understanding and consents to assessment. Pt is sitting up in chair in no distress on room air. Pt is A/Ox4 and answers questions appropriately. Pt states that she only missed her meds that day d/t argument with her daughter as her daughter wouldn't come do her laundry for her. Care providers, pharmacy, and demographics verified. Presentation: Pt c/o chest pain and blood sugar read high for EMS. Pt states unsure when she last took meds Admitting dx: Hyperglycemia, CP PCP: [facility] Specialists: Lauren, podiatry; Markel, cardio; Laurent nephro Preferred Pharmacy: [facility] Insurance: [employer] Prescription Benefit: [employer] Living Will/HPOA: Pt does not have LW/HPOA and declines AD info. Pt aware that her daughter would be contact finger assembler to make decisions as she is the only one listed, pt gets very upset about this and asks 'Why wouldn't my be the contact finger assembler?' Advised pt that he is not listed at all and this RN CM requested his contact info, pt states she does not have it at this time but may be able to get it later today. Pt then states 'You would really call [facility] to speak with him?' This RN CM advised her that any attempt would be made to contact whoever is listed if pt could not make decisions for herself, voices understanding. Pt's daughter left listed at this time. LNOK: Trisha David, daughter-pt states also has a son and cousin(who brought her in) but does not want them listed at this time. Living Arrangements: Pt lives alone in 1 story home with 3 steps in and states has been having difficulty caring for self. Pt states is not supposed to be wgt-bearing on right foot but states has to at home to use bathroom and to go [facility]. Pt states she was told by Dr. Edgar that her foot wounds would heal if she stayed off them which is why she had asked her daughter to assist her with laundry. Transportation: Pt uses [facility] van for transportation and states plans to use insurance in the future for transportation. DME/HHC: Pt has the following DME: w/c, rollator, walker, BSC, shower chair, tub bench, and knee scooter. Pt states no need for any further DME. Pt states has been to [facility] in past and states is active with [facility] for SN, PT/OT. Call to [facility] and they state pt is not active with them. CM to attempt to figure out who pt was set up with [facility]. Pt is active with palliative care. Pt states plans to go back home at discharge and plans to return to [facility] with her once she is medically stable. Pt is on disability. Pt states states does not smoke cigarettes or drink ETOH. Pt voices no further concerns/needs. CM to follow for HHC and any further discharge planning/needs. Advised pt to ask for CM if any further questions/concerns/needs arise, voices understanding. Pt Goal: Home Plan: Home w/ [facility] Mary Ann IGLESIAS CM
[2021-10-26 13:56] LABS: Bedside Glucose 135 mg/dL (70-110)
[2021-10-26 16:55] LABS: Bedside Glucose 281 mg/dL (70-110)
[2021-10-26] MEDS: Paroxetine 20 MG Tablet PO (22:00)
[2021-10-26] MEDS: Atorvastatin Calcium 80 MG Tablet PO (22:00)
[2021-10-26] MEDS: cycloBENZAPRine HCl 5 MG TABLET PO (22:00)
[2021-10-26 22:10] LABS: Bedside Glucose 172 mg/dL (70-110)
[2021-10-27 03:00] VITALS: PULSE 85
[2021-10-27 03:55] VITALS: BP 156/88; PULSE 91; RESP 17; TEMP 36.6; O2SAT 97
[2021-10-27] MEDS: Ondansetron 4 MG/2 ML Vial IV (03:58)
[2021-10-27] MEDS: 0.9% Normal Saline 1,000 ML 75 ML IV (05:58)
[2021-10-27 06:32] LABS: Absolute Lymphocyte Count 1.21 X10^3/uL (0.83-4.51); Absolute Neutrophil Count 4.8 X10^3/uL (2.0-7.7); Basophil# 0.04 X10^3/uL; Basophil% 0.6 % (0-1); Eosinophil# 0.32 X10^3/uL; Eosinophils% 4.6 % (0-5); Hematocrit 27.4 % (37-47); Hemoglobin 8.6 g/dL (12.0-15.0); Lymphocyte # 1.21 X10^3/ul (0.83-4.51); Lymphocyte % 17.5 % (19-41); Mean Corp Hgb Conc 31.4 g/dL (32-36); Mean Corpuscular Hgb 27.5 pg (27.0-32.0); Mean Corpuscular Volume 87.5 fL (81-99); Mean Platelet Vol. 11.2 fl (6.2-12.0); Monocyte# 0.49 X10^3/uL; Monocyte% 7.1 % (0-10); NRBC Flagged by Analyzer 0 % (0-5); Neutrophil # 4.83 X10^3/uL (2.7-7.7); Neutrophil % 69.9 % (47-70); Platelet Count 232 K/mm3 (150-450); RBC Distribution Width CV 15.3 % (11.6-14.6); RBC Distribution Width SD 49.1 fl (35.1-43.9); Red Blood Count 3.13 M/mm3 (4.2-5.4); White Blood Count 6.9 K/mm3 (4.4-11.0)
[2021-10-27 06:51] LABS: Anion Gap 7 (5-15); BUN 35 mg/dL (7-18); BUN/Creat Ratio 19.9 RATIO (10-20); Calcium,Total 7.6 mg/dL (8.5-10.1); Chloride 113 mmol/L (98-107); Creatinine, Serum 1.76 mg/dL (0.55-1.02); EST Glomerular Filtration Rate 32 mL/min (>60); Est Glom Filt Rate - Afr Amer 38 mL/min (>60); Estimated Creatinine Clearance 33.41 ml/min; Glucose 147 mg/dL (74-106); Potassium 3.9 mmol/L (3.5-5.1); Sodium Level 141 mmol/L (136-145)
[2021-10-27 07:32] VITALS: PULSE 100
[2021-10-27 08:26] VITALS: O2SAT 93
[2021-10-27 08:58] VITALS: BP 169/97; PULSE 92; RESP 16; TEMP 36.7; O2SAT 97
--- NOTE | 2021-10-27 09:12 | PCM.DC ---
Discharge Instructions Diet Discharge Diet: Low fat / Low cholesterol and 1800 Calorie Control Diet Activity Weight Bearing Status: No weight bearing (Right lower extremity except for pivot transfers) Keep extremity elevated above heart level: Right Leg Dressing / Incision Call your doctor if you observe: Shortness of breath, Dizziness and Chest pain Follow Up Care Test Results: Test results from this visit will be discussed in further detail at your follow-up appointment, if applicable. Discharge Plan Admission Admit Date/Time: 10/25/21 16:00 Primary Reason for Your Visit: Hyperglycemia, Chest Pain Attending Provider: Dinesh Daugherty Primary Care Provider: Raúl Eric Discharge Orders/Prescriptions Prescriptions: New acetaminophen [Tylenol] 325 mg Tablet 650 mg PO Q6H PRN PRN (Reason: Pain Score 1-10/Temp > 100.7 F) Qty: 0 RF: 0 aspirin 81 mg Tablet,Delayed Release (Dr/Ec) 81 mg PO BREAKFAST Qty: 0 RF: 0 Continued atorvastatin 80 mg tablet 80 mg PO QHS Qty: 90 RF: 3 pramipexole 1 MG tablet 1.5 mg PO BID RF: 0 isosorbide mononitrate 30 mg tablet extended release 24 hr 30 mg PO DAILY RF: 0 paroxetine HCl 20 mg tablet 20 mg PO QHS RF: 0 oxycodone 5 mg tablet 5 mg PO BID PRN (Reason: Pain) RF: 0 benzonatate 100 mg Capsule 100 mg PO TID PRN PRN (Reason: Cough) RF: 0 cyclobenzaprine 5 mg Tablet 5 mg PO QHS RF: 0 bupropion HCl 150 mg PO.IVFORM DAILY RF: 0 furosemide 40 mg Tablet 40 mg PO DAILY RF: 0 carvedilol [Coreg] 6.25 mg tablet 6.25 mg PO BID Qty: 60 RF: 0 magnesium oxide [MagOx] 400 mg (241.3 mg magnesium) tablet 400 mg PO DAILY Qty: 30 RF: 0 insulin lispro [Humalog KwikPen Insulin] 100 unit/mL Insulin Pen 5 unit subcut TIDCM Qty: 0 RF: 0 HySept 0.25 % Solution 1 applic topical DAILY Qty: 0 RF: 0 Ted (with collagen) 7-7-1.5 gram Powder In Packet 1 packet PO BIDCM Qty: 0 RF: 0 Lantus Solostar U-100 Insulin 100 unit/mL (3 mL) Insulin Pen 30 unit SUBCUT BID Qty: 0 RF: 0 clopidogrel 75 MG tablet 75 mg PO DAILY RF: 0 Discontinued cefepime 2 gram recon soln 2 g IV Q12H 35 Days Qty: 70 RF: 0 Other Ambulatory Orders: Glucometer (Routine) Location: None Selected Ordered By: Shonda Salmon Referrals / Follow Up: Raúl Eric MD [Primary Care Provider] - Disposition Disposition (needs filled in before D/C Order can be placed): Home Health Service
[2021-10-27] MEDS: oxyCODONE 5 MG Tablet PO (09:16)
[2021-10-27] MEDS: Acetaminophen 325 MG Tablet 650 MG PO (09:16)
[2021-10-27] MEDS: Insulin Lispro 100 UNIT/ML INSULN.PEN SC ×4 (09:16→12:26)
[2021-10-27] MEDS: Aspirin E.C. 81 MG Tablet PO (09:17)
[2021-10-27] MEDS: Carvedilol 6.25 MG Tablet PO (09:17)
[2021-10-27] MEDS: Clopidogrel Bisulfate 75 MG Tablet PO (09:18)
[2021-10-27] MEDS: Enoxaparin 30 MG/0.3 ML Syringe SC (09:18)
[2021-10-27] MEDS: Magnesium Chloride 64 MG Delay Rel.Tablet 128 MG PO (09:18)
[2021-10-27] MEDS: Isosorbide Mononitrate 30 MG Tablet PO (09:19)
[2021-10-27] MEDS: Furosemide 40 MG Tablet PO (09:19)
[2021-10-27] MEDS: Pramipexole Di-HCl 0.5 MG Tablet 1.5 MG PO (09:19)
--- NOTE | 2021-10-27 09:19 | PCM.DC.SUM ---
Documented by User: BRIAN Fitzgerald 10/27/21 09:25 Providers Date of Admission: 10/25/21 Primary Care Physician: Dr. Raúl Eric MD Consultations 10/25/21 17:26 Consult: Onc/Wound/marketing intelligence analyst Routine Comment: Reason for Consult:: bilateral foot ulcers Reason For Visit: HYPERGLYCEMIA, CHEST PAIN Diagnosis Discharge Diagnosis (1) Hyperglycemia: Status: Acute Code(s): R73.9 - Hyperglycemia, unspecified (2) Chest pain: Status: Acute Code(s): R07.9 - Chest pain, unspecified Qualifiers: Chest pain type: unspecified Qualified Code(s): R07.9 - Chest pain, unspecified (3) Hypertension: Status: Chronic Code(s): I10 - Essential (primary) hypertension Qualifiers: Hypertension type: primary hypertension Qualified Code(s): I10 - Essential (primary) hypertension Medications at Discharge Home Medications atorvastatin 80 mg tablet 80 mg PO QHS #90 tablet 11/30/19 pramipexole 1.5 mg PO BID 09/12/20 isosorbide mononitrate 30 mg PO DAILY 03/03/21 oxycodone 5 mg PO BID PRN 07/07/21 paroxetine HCl 20 mg PO QHS 07/07/21 benzonatate 100 mg PO TID PRN PRN 09/02/21 bupropion HCl 150 mg PO.IVFORM DAILY 09/02/21 cyclobenzaprine 5 mg PO QHS 09/02/21 furosemide 40 mg PO DAILY 09/02/21 carvedilol [Coreg] 6.25 mg PO BID #60 tab 09/08/21 magnesium oxide [MagOx] 400 mg PO DAILY #30 tab 09/08/21 Ted (with collagen) 1 packet PO BIDCM #0 ea 09/14/21 Lantus Solostar U-100 Insulin 30 unit SUBCUT BID #0 ml 09/14/21 insulin lispro [Humalog KwikPen Insulin] 5 unit SUBCUT TIDCM #0 ml 09/14/21 clopidogrel 75 mg PO DAILY 10/25/21 HySept 1 applic TOPICAL DAILY 10/27/21 acetaminophen [Tylenol] 650 mg PO Q6H PRN PRN #0 tab 10/27/21 aspirin 81 mg PO BREAKFAST #0 tab 10/27/21 Hospital Course Operations None Procedures None Summary of Care Provided Hospital Course: Patient is a 56-year-old female who initially presented with hyperglycemia and hypertension. Patient family member at bedside at time of admission states that patient has not been taking her medications nor has she been taking her blood sugar as she cannot find her glucometer [facility]. Patient was reinitiated on her home medications and states her blood sugars have been better controlled and her vital signs have stabilized. Patient will be discharged home with explicit instructions for medication administration. Patient will be discharged home with a resumption of home health care for nursing care, PT, OT as patient has a diabetic foot ulcer that is being cared for since September 2021. Patient will resume follow-ups at wound center as scheduled. Physical Exam Const alert, oriented x3 and no apparent distress General Appearance: cooperative HEENT normocephalic and head/scalp atraumatic Eyes conjunctivae normal and no scleral icterus Neck full ROM and supple General: trachea midline Resp normal respiratory effort, normal air movement and clear to auscultation bilaterally Cardio regular rate, regular rhythm, S1 normal heart sound, S2 normal heart sound and peripheral pulses 2+ throughout GI normal to inspection, nondistended, normoactive bowel sounds, soft to palpation and non-tender Extremity normal capillary refill and no clubbing, cyanosis or edema General Extremity: no tenderness to palpation of joints or extremities Skin General Skin Exam: no breakdown and turgor normal Lesions: no lesions Rashes: no rashes Neuro oriented x3, moves all extremities, no focal motor deficits and no sensory deficits noted Sensorium / Orientation: lethargic Motor Exam: general weakness Psych thought process normal, cooperative and affect normal Appearance: appropriate Weight / BMI Weight Weight: 195 lb 1.745 oz Body Mass Index (BMI) 31.4 ABG / Lab / Microbiology Data Result Diagrams: 10/27/21 05:44 10/27/21 05:44 Laboratory: Laboratory Results - last 24 hr 10/26/21 12:19: POC Glucose 135 H 10/26/21 16:49: POC Glucose 281 H 10/26/21 21:57: POC Glucose 172 H 10/27/21 05:44: WBC 6.9, RBC 3.13 L, Hgb 8.6 L, Hct 27.4 L, MCV 87.5, MCH 27.5, MCHC 31.4 L, RDW Std Deviation 49.1 H, RDW Coeff of Fior 15.3 H, Plt Count 232, MPV 11.2, Immature Gran % (Auto) 0.300, Neut % (Auto) 69.9, Lymph % (Auto) 17.5 L, [place] % (Auto) 7.1, Eos % (Auto) 4.6, Baso % (Auto) 0.6, Absolute Neuts (auto) 4.8, Absolute Lymphs (auto) 1.21, Nucleated RBC % 0 10/27/21 05:44: Sodium 141, Potassium 3.9, Chloride 113 H, Carbon Dioxide 21.0, Anion Gap 7, BUN 35 H, Creatinine 1.76 H, Estim Creat Clear Calc 33.41, Est GFR (MDRD) Af Amer 38 L, Est GFR (MDRD) Non-Af 32 L, BUN/Creatinine Ratio 19.9, Glucose 147 H, Calcium 7.6 L D/C Instructions Discharge Diet: Low fat / Low cholesterol and 1800 Calorie Control Diet Weight Bearing Status: No weight bearing (Right lower extremity except for pivot transfers) Keep extremity elevated above heart level: Right Leg Call your doctor if you observe: Shortness of breath, Dizziness and Chest pain Meaningful Use Info Meaningful Use Diagnoses (Choose all that apply): None applicable Discharge Plan Admission Admit Date/Time: 10/25/21 16:00 Primary Reason for Your Visit: Hyperglycemia, Chest Pain Attending Provider: Dinesh Daugherty Primary Care Provider: Raúl Eric Discharge Orders/Prescriptions Prescriptions: New acetaminophen [Tylenol] 325 mg Tablet 650 mg PO Q6H PRN PRN (Reason: Pain Score 1-10/Temp > 100.7 F) Qty: 0 RF: 0 aspirin 81 mg Tablet,Delayed Release (Dr/Ec) 81 mg PO BREAKFAST Qty: 0 RF: 0 Continued atorvastatin 80 mg tablet 80 mg PO QHS Qty: 90 RF: 3 pramipexole 1 MG tablet 1.5 mg PO BID RF: 0 isosorbide mononitrate 30 mg tablet extended release 24 hr 30 mg PO DAILY RF: 0 paroxetine HCl 20 mg tablet 20 mg PO QHS RF: 0 oxycodone 5 mg tablet 5 mg PO BID PRN (Reason: Pain) RF: 0 benzonatate 100 mg Capsule 100 mg PO TID PRN PRN (Reason: Cough) RF: 0 cyclobenzaprine 5 mg Tablet 5 mg PO QHS RF: 0 bupropion HCl 150 mg PO.IVFORM DAILY RF: 0 furosemide 40 mg Tablet 40 mg PO DAILY RF: 0 carvedilol [Coreg] 6.25 mg tablet 6.25 mg PO BID Qty: 60 RF: 0 magnesium oxide [MagOx] 400 mg (241.3 mg magnesium) tablet 400 mg PO DAILY Qty: 30 RF: 0 insulin lispro [Humalog KwikPen Insulin] 100 unit/mL Insulin Pen 5 unit subcut TIDCM Qty: 0 RF: 0 Ted (with collagen) 7-7-1.5 gram Powder In Packet 1 packet PO BIDCM Qty: 0 RF: 0 Lantus Solostar U-100 Insulin 100 unit/mL (3 mL) Insulin Pen 30 unit SUBCUT BID Qty: 0 RF: 0 clopidogrel 75 MG tablet 75 mg PO DAILY RF: 0 Discontinued cefepime 2 gram recon soln 2 g IV Q12H 35 Days Qty: 70 RF: 0 No Action HySept 0.25 % solution 1 applic topical DAILY RF: 0 Other Ambulatory Orders: Glucometer (Routine) Location: None Selected Ordered By: Shonda Salmon Referrals / Follow Up: Raúl Eric MD [Primary Care Provider] - 11/10/21 10:00 am Alli Esteban MD [STAFF PHYSICIAN] - Within 3 Months Disposition Disposition (needs filled in before D/C Order can be placed): Home Health Service Documented by User: Dr. Dinehs Daugherty MD 10/27/21 10:37 Providers Date of Admission: 10/25/21 Reason For Visit: HYPERGLYCEMIA, CHEST PAIN Medications at Discharge Home Medications atorvastatin 80 mg tablet 80 mg PO QHS #90 tablet 11/30/19 pramipexole 1.5 mg PO BID 09/12/20 isosorbide mononitrate 30 mg PO DAILY 03/03/21 oxycodone 5 mg PO BID PRN 07/07/21 paroxetine HCl 20 mg PO QHS 07/07/21 benzonatate 100 mg PO TID PRN PRN 09/02/21 bupropion HCl 150 mg PO.IVFORM DAILY 09/02/21 cyclobenzaprine 5 mg PO QHS 09/02/21 furosemide 40 mg PO DAILY 09/02/21 carvedilol [Coreg] 6.25 mg PO BID #60 tab 09/08/21 magnesium oxide [MagOx] 400 mg PO DAILY #30 tab 09/08/21 Ted (with collagen) 1 packet PO BIDCM #0 ea 09/14/21 Lantus Solostar U-100 Insulin 30 unit SUBCUT BID #0 ml 09/14/21 insulin lispro [Humalog KwikPen Insulin] 5 unit SUBCUT TIDCM #0 ml 09/14/21 clopidogrel 75 mg PO DAILY 10/25/21 HySept 1 applic TOPICAL DAILY 10/27/21 acetaminophen [Tylenol] 650 mg PO Q6H PRN PRN #0 tab 10/27/21 aspirin 81 mg PO BREAKFAST #0 tab 10/27/21 Hospital Course Summary of Care Provided Minutes Spent on Discharge: 40 ABG / Lab / Microbiology Data Result Diagrams: 10/27/21 05:44 10/27/21 05:44 Discharge Plan Admission Admit Date/Time: 10/25/21 16:00 Primary Reason for Your Visit: Hyperglycemia, Chest Pain Attending Provider: Dinesh Daugherty Primary Care Provider: Raúl Eric Discharge Orders/Prescriptions Prescriptions: New acetaminophen [Tylenol] 325 mg Tablet 650 mg PO Q6H PRN PRN (Reason: Pain Score 1-10/Temp > 100.7 F) Qty: 0 RF: 0 aspirin 81 mg Tablet,Delayed Release (Dr/Ec) 81 mg PO BREAKFAST Qty: 0 RF: 0 Continued atorvastatin 80 mg tablet 80 mg PO QHS Qty: 90 RF: 3 pramipexole 1 MG tablet 1.5 mg PO BID RF: 0 isosorbide mononitrate 30 mg tablet extended release 24 hr 30 mg PO DAILY RF: 0 paroxetine HCl 20 mg tablet 20 mg PO QHS RF: 0 oxycodone 5 mg tablet 5 mg PO BID PRN (Reason: Pain) RF: 0 benzonatate 100 mg Capsule 100 mg PO TID PRN PRN (Reason: Cough) RF: 0 cyclobenzaprine 5 mg Tablet 5 mg PO QHS RF: 0 bupropion HCl 150 mg PO.IVFORM DAILY RF: 0 furosemide 40 mg Tablet 40 mg PO DAILY RF: 0 carvedilol [Coreg] 6.25 mg tablet 6.25 mg PO BID Qty: 60 RF: 0 magnesium oxide [MagOx] 400 mg (241.3 mg magnesium) tablet 400 mg PO DAILY Qty: 30 RF: 0 insulin lispro [Humalog KwikPen Insulin] 100 unit/mL Insulin Pen 5 unit subcut TIDCM Qty: 0 RF: 0 Ted (with collagen) 7-7-1.5 gram Powder In Packet 1 packet PO BIDCM Qty: 0 RF: 0 Lantus Solostar U-100 Insulin 100 unit/mL (3 mL) Insulin Pen 30 unit SUBCUT BID Qty: 0 RF: 0 clopidogrel 75 MG tablet 75 mg PO DAILY RF: 0 Discontinued cefepime 2 gram recon soln 2 g IV Q12H 35 Days Qty: 70 RF: 0 No Action HySept 0.25 % solution 1 applic topical DAILY RF: 0 Other Ambulatory Orders: Glucometer (Routine) Location: None Selected Ordered By: Shonda Salmon Referrals / Follow Up: Raúl Eric MD [Primary Care Provider] - 11/10/21 10:00 am Alli Esteban MD [STAFF PHYSICIAN] - Within 3 Months Disposition Disposition (needs filled in before D/C Order can be placed): Home Health Service Charges/Coding Addendum Addendum: Dr. Daugherty: I personally reviewed the chart and examined the patient, and agree with the above findings. 56-year-old female with a history of diabetes presents to the hospital with significant hyperglycemia as well as chest pain. She had a heart cath on 12/30/2020 and had a stent placed in the mid LAD, however she is noticing that she has not any chest pain today and she was unclear as to the kind of chest pain she was having yesterday. She did have a stress test 07/08/2021 which demonstrated mild anterior ischemia with an EF of 35% and so medical management was recommended at that time by cardiology. Echo in August 2021 demonstrated an EF of 55%. She states that this time she forgot to take her insulin because she got into an argument with her daughter she has had several admissions within the last year due to uncontrolled diabetes and each time it is a different reason. I will encourage her that when she is discharged to follow-up with endocrinology to help manage her diabetes is well as possible. Of note her creatinine has improved and she is returning to baseline. She is challenging as she does have significant difficulty with compliance for medications. Continue to encourage compliance and follow-up with her outpatient PCP. Clinical care time evaluating the patient as well as discussing with other providers and chart review: 18 minutes 10/27/2021: Blood sugars much better controlled today, and she feels back to baseline. We will resume her home insulin, her creatinine is back to baseline as well and I do recommend that she follow-up with endocrinology as an outpatient after discharge. She will need to follow-up with her PCP in 3 to 5 days as well as the wound care center for continued care of her diabetic foot ulcer. I discussed with her the plan for discharge today and she expressed understanding Lani was going home and would like to go home today. Clinical care time spent cussing discharge planning with the patient as well as other clinical staff as well as chart review: 40 minutes General: Alert, Oriented x3, Cooperative, No apparent distress HEENT: Atraumatic, PERRLA, EOMI, Normocephalic Oral: Moist Mucosa Neck: Supple, No JVD Lungs: Clear to auscultation, Normal air movement, No rhonchi, No wheeze, No rales Cardiovascular: Regular rate, Regular Rhythm, Normal S1, Normal S2, No murmurs Abdomen: Soft, Non Tender, Non-Distended, No Hepato-splenomegaly Extremities: No edema, Capillary Refill Less than 3 Seconds Skin: Right foot diabetic ulcer appears clean Musculoskeletal: No Tenderness to Palpation of Joints or Extremities Neurological: Cranial nerves II-XII grossly intact, Motor Exam 5/5 strength throughout, Sensory exam intact to light touch and pain Psych/Mental Status: Normal Affect, Appropriate Visit Charges Inpatient E&M: 63785 Disch Hosp
[2021-10-27] MEDS: buPROPion (XL) 150 MG TABLET.XL PO (09:20)
--- NOTE | 2021-10-27 09:25 | CASEMGMT ---
Addendum entered by Erika Mccann 10/27/21 14:30: Call from Sofiya at [facility] and she was updated on pt admit dx, discharge, voices understanding. Sofiya aware that LUC order, clinicals faxed previously, voices understanding. Mary Ann IGLESIAS CM Addendum entered by Erika Mccann 10/27/21 11:16: Pt states she would like to complete HPOA and name her as HPOA but states that she cannot obtain his contact info at this time. Pt aware that contact info is needed to complete paperwork as we would need a way to contact him. Mary Ann IGLESIAS CM Original Note: Call to [facility] and they state pt is active with them for SN, PT/OT. This KELSIE IRELAND advised pt is admitted and plan for d/c today. Clinicals with LUC order, add aide, faxed to [facility] at this time. Pt states plan is still to go home with [facility] and is aware order added for aide, voices understanding. Pt advised this KELSIE IRELAND yesterday that she had been checking sugars and taking meds up until day of admission. Pt is now stating that she has not found glucometer since she left [facility] several weeks ago and [facility] [employer] placed order for new glucometer w/ supplies for pt. Pt voices no further questions/concerns/needs. Mary Ann IGLESIAS CM
[2021-10-27 09:31] LABS: Bedside Glucose 163 mg/dL (70-110)
[2021-10-27 12:25] VITALS: BP 135/71; PULSE 82; RESP 20; TEMP 36.6; O2SAT 96
[2021-10-27 12:35] LABS: Bedside Glucose 206 mg/dL (70-110)
== END 2021-10-27 12:51 | disposition home health service (06) | DRG 639 ==
LOC: ED 15:32 → PCU 16:12
PROVIDERS: Nurse Practitioner Family; Admitting Provider Internal Medicine; Emergency Provider Emergency Medicine; PCP Family Medicine; Visit Provider Family Medicine
DX: E11.65 Type 2 diabetes mellitus with hyperglycemia (principal); L97.509 Non-pressure chronic ulcer of other part of unspecified foot with unspecified severity; E11.22 Type 2 diabetes mellitus with diabetic chronic kidney disease; E11.42 Type 2 diabetes mellitus with diabetic polyneuropathy; Z79.4 Long term (current) use of insulin; N18.32 Chronic kidney disease, stage 3b; I12.9 Hypertensive chronic kidney disease with stage 1 through stage 4 chronic kidney disease, or unspecified chronic kidney disease; I25.10 Atherosclerotic heart disease of native coronary artery without angina pectoris; E78.5 Hyperlipidemia, unspecified; Z91.19 Patient's noncompliance with other medical treatment and regimen; R07.9 Chest pain, unspecified; Z86.16 Personal history of COVID-19; Z86.73 Personal history of transient ischemic attack (TIA), and cerebral infarction without residual deficits
CPT/HCPCS: 36415; 71045; 80048; 80061; 80076; 81001; 81002; 82009; 82962; 84484; 85025; 87086; 87088; 93005; 97110; 97162; 97166; 97535; 97802; 99285; J7030; J2405

== ENCOUNTER 2021-11-04 14:30 | Outpatient (RCR) | payer MEDICARE, MEDICAID, SELFPAY ==
[2018-09-21 13:23] VITALS: BMI 29.3
[2021-10-10 00:19] VITALS: BP 133/71; PULSE 97; RESP 16; TEMP 35.8; BMI 32.3
[2021-10-14 13:51] VITALS: BP 148/78; PULSE 93; RESP 20; TEMP 36.1; BMI 32.3
--- NOTE | 2021-10-14 22:36 | PN.PCM_ITS ---
History of Present Illness Date of Service: 10/14/21 Chief Complaint: right foot ulcer left foot ulcer History of Wound: Patient is a 56-year-old female who presents to the clinic for bilateral foot ulcers. She was recently discharged from the hospital for hypertension and Covid 19 management. She denies odor or redness. She resides at group home facility. She denies fever, chill, nausea, vomiting, foot pain. She was recently treated for bacteremia with suspected nidus from foot. She had a tendon debridement performed bedside to the right foot during her recent hospitalization. She is on a PICC line with 6-week IV antibiotic course. She has been able to offload much better now that she is in a skilled facility and is engaged in her visit today.she will be discharged home very soon she reports. Progress of Wound: bilateral stable Objective Data Objective Data Vital Signs: Vital Signs Temp Pulse Resp BP 96.9 F L 93 20 H 148/78 H 10/14/21 13:51 10/14/21 13:51 10/14/21 13:51 10/14/21 13:51 Weight: 91.138 kg Body Mass Index (BMI) 32.3 Physical Exam Narrative General Skin Exam: atrophy and dry skin; Negative for ecchymosis, no erythema, no eschar, and no odor. no purulence, no streaking Plantar left foot ulceration: No exposed tendon or probe to bone. No maceration noted. There is no erythema or edema or malodor or purulence or other suggestion signs of infection. Some slight serosanguineous drainage noted. Ulcer healing. Tissues are healthy and viable - ulcer is down to subcutaneous tissue. Plantar right foot ulceration. No exposed tendon or probe to bone. No maceration noted. There is no erythema or edema or malodor or purulence or other suggestion signs of infection. Some slight serosanguineous drainage noted. Ulcer healing. Tissues are healthy and viable - ulcer is down to subcutaneous tissue. 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 Chronic charcot foot deformity noted bilaterally, no acute deformity. No gross laxity or crepitus with manipulation. Negative calf tenderness bilateral, no evidence of DVT bilateral. CFT < 2 seconds to all toes with no evidence of acute ischemia to foot bilateral. Chronic peripheral neuropathy bilateral foot. Debridement Note Debridement Note Wound debrided: right plantar, left plantar Wound Grade/Stage: 2,1 Type of Debridement: Excisional debridement Anesthesia Used: 4% Lidocaine Solution Depth: in the subcutaneous layer Percentage of wound debrided: 100 Instrument Used: #15 blade Tissue Removed: fibrous, devitalized subcutaneous, biofilm, slough Severity: Fat Layer Exposed Amount of bleeding with debridement: Mild Bleeding Controlled with: Pressure Patient tolerated procedure: Patient tolerated procedure well Post-Debridement Measurements and Additional Note: Post-Debridement Measurements/Treatment WC - Nurse 1 - General Ulcer Assessment Start: 10/14/21 13:51 Freq: Status: Active Protocol: SHANICE Activity Type Activity Date Activity User E-Sign Co-Sign Detail Recorded Client Recorded Date Recorded By Document 10/14/21 13:51 DL [id number] 10/14/21 13:58 DL 10/14/21 13:51 WC - Today's Visit Information Type of service Follow-up Visit (Physician/DENTAL TECH ) Arrival Mode Wheelchair Transfer Assistance Manual Transfer Assist (Other) x1 Patient Identification Verified (Name & Yes ) Patient Requires Transmission-Based No Precautions Finger Stick Blood Sugar(mg/dl) (if 160 indicated): Blood Sugar Stated by Patient Height and Weight Body Mass Index (BMI) 32.3 BMI Classification Obese Vital Signs Temperature (97.8 F-99.1 F) 96.9 F L Temperature Source Temporal Pulse Rate (60-100) 93 Pulse Location Monitor Respiratory Rate (12-18) 20 H Respiratory rate source Observation Blood Pressure (90/60-120/80) 148/78 H Blood Pressure Mean (mm Hg) 101 Source Monitor History Since Last Visit- (Skip if this is Patient's initial visit) Have you changed medications since your No last visit? Any new allergies or adverse reactions No Had a fall/change in ADL's that may No increase risk of falls Signs or symptoms of abuse and/or No neglect since last visit Have you been in the hospital since your No last visit? Has dressing in place as prescribed Yes Has compression in place as prescribed Yes Has offloadiing in place as prescribed Yes Left Footwear Slipper Right Footwear Slipper Pain Scale: 0-10 Numeric Is Patient Pain Free? Yes TENNILLE Gamble Nurse 1 - General Ulcer Measurement Start: 10/14/21 13:51 Freq: Status: Active Protocol: Activity Type Activity Date Activity User E-Sign Co-Sign Detail Recorded Client Recorded Date Recorded By Document 10/14/21 13:51 DL [id number] 10/14/21 13:58 DL 10/14/21 13:51 Wound Center Nurse 1 19-right inferior plantar -Current Size (cm) - Length 1.8 -Current Size (cm) - Width 2.1 -Current Size (cm) - Depth 0.3 -Total Square Cm 3.78 -Photo Taken No -Tunneling Position (O'clock) 2 -Tunneling Distance (cm) 0.3 -Undermining/Tunneling Starts (O'clock 8 ) -Undermining/Tunneling Ends (O'clock) 12 -Maximum Distance (cm) 1.3 -Circular Undermining No -Exudate Amt Medium -Exudate Type Serosanguineous -Wound Margin Thickened -Granulation Amt Medium (34-66%) -Granulation Quality [place],Red -Necrosis Amt Medium (34-66%) -Necrotic Tissue Type Adherent Slough -Structure Exposed N/A -Texture (Natacha-wound Skin Appearance) Scarring -Moisture (Natacha-wound Skin Appearance) Dry/Scaly -Color (Natacha-wound Skin Appearance) No Abnormality -Temperature (Natacha-wound Skin No Abnormality Appearance) (Pt Warm) -Tenderness on Palpation (Natacha-wound No Skin Appearance) -Ulcer Cleansing Soap and Water -Foul Odor after Cleansing No -Anesthetic Used 4% Lidocaine Solution #16 L Plantar foot -Current Size (cm) - Length 2.5 -Current Size (cm) - Width 2.2 -Current Size (cm) - Depth 0.5 -Total Square Cm 5.50 -Photo Taken No -Exudate Amt Medium -Exudate Type Serosanguineous -Wound Margin Thickened -Granulation Amt Medium (34-66%) -Granulation Quality [place],Red -Necrosis Amt Medium (34-66%) -Necrotic Tissue Type Adherent Slough -Structure Exposed N/A -Texture (Natacha-wound Skin Appearance) Scarring -Moisture (Natacha-wound Skin Appearance) Dry/Scaly -Color (Natacha-wound Skin Appearance) No Abnormality -Temperature (Natacha-wound Skin No Abnormality Appearance) (Pt Warm) -Tenderness on Palpation (Natacha-wound No Skin Appearance) -Ulcer Cleansing Soap and Water -Foul Odor after Cleansing No -Anesthetic Used 4% Lidocaine Solution WC - Nurse 2 - General Ulcer CM Notes Start: 10/14/21 13:51 Freq: Status: Active Protocol: Activity Type Activity Date Activity User E-Sign Co-Sign Detail Recorded Client Recorded Date Recorded By Document 10/14/21 14:13 LISSY [id number] 10/14/21 14:18 LISSY 10/14/21 14:13 Wound Center Nurse 2 19-right inferior plantar -Time 14:14 -Correct Patient Yes -Correct Side, Site, Position Yes -Correct Procedure Yes -Procedure Performed Yes -Type of Procedure Debridement -Clinical Debridement Subcutaneous -Tissue Removed Subcutaneous -Post Debridement (cm) - Length 1.8 -Post Debridement (cm) - Width 2.2 -Post Debridement (cm) - Depth 1.9 -Total Square (Post) (cm) 3.96 -Area of Debridement (cm) - Length 1.8 -Area of Debridement (cm) - Width 2.2 -Total Square (Area) (cm) 3.96 -Tunneling No -Undermining/Tunneling No -Circular Undermining No -Wound/Ulcer Outcome Not Healed -Ulcer Cleansing Rinsed/ Irrigated with Saline -Foul Odor after Cleansing No -Bioengineered Tissue No -Bleeding Controlled with Pressure -Offloading No -Treatment Response Procedure Tolerated Well -Debridement - Subq, 1st 20sq cm Yes #16 L Plantar foot -Time 14:15 -Correct Patient Yes -Correct Side, Site, Position Yes -Correct Procedure Yes -Procedure Performed Yes -Type of Procedure Debridement -Clinical Debridement Subcutaneous -Tissue Removed Subcutaneous -Post Debridement (cm) - Length 2.6 -Post Debridement (cm) - Width 2.2 -Post Debridement (cm) - Depth 1.0 -Total Square (Post) (cm) 5.72 -Area of Debridement (cm) - Length 2.6 -Area of Debridement (cm) - Width 2.2 -Total Square (Area) (cm) 5.72 -Tunneling No -Undermining/Tunneling No -Circular Undermining No -Wound/Ulcer Outcome Not Healed -Ulcer Cleansing Rinsed/ Irrigated with Saline -Foul Odor after Cleansing No -Bioengineered Tissue No -Bleeding Controlled with Pressure -Offloading No -Treatment Response Procedure Tolerated Well -Debridement - Subq, 1st 20sq cm No Pain Scale: 0-10 Numeric Is Patient Pain Free? Yes WC - Nurse 3 - General Ulcer D/C NN Start: 10/14/21 13:51 Freq: Status: Active Protocol: Activity Type Activity Date Activity User E-Sign Co-Sign Detail Recorded Client Recorded Date Recorded By Document 10/14/21 14:20 RADHA [id number] 10/14/21 14:23 RADHA 10/14/21 14:20 Wound Care Nurse 3 19-right inferior plantar -Ulcer Cleansing Rinsed/ Irrigated with Saline -Foul Odor after Cleansing No -Negative Pressure Wound Therapy N/A -Primary Dressing Applied Aquacel AG 4x4 -Other Dressing ABD -Primary Dressing Covered/Secured with Dry Gauze & Roll Gauze, Secured with Tape -Aquacel AG 4x4 1 #16 L Plantar foot -Ulcer Cleansing Rinsed/ Irrigated with Saline -Foul Odor after Cleansing No -Negative Pressure Wound Therapy N/A -Primary Dressing Applied Aquacel AG 4x4 -Other Dressing ABD -Primary Dressing Covered/Secured with Dry Gauze & Roll Gauze, Secured with Tape -Aquacel AG 4x4 0 Right -Lotion applied to leg before No compression wrap -Compression Wrap [place] Wrap Left -Lotion applied to leg before No compression wrap -Compression Wrap [place] Wrap WC - Visit Discharge Discharge Condition Stable Ambulatory Status Ambulatory Transportation Private Auto Medication Reconcilliation completed & No provided to patient/care provider Clinical Summary of Care Provided Yes Assessment/Plan Assessment/Plan (1) Chronic ulcer of right foot with fat layer exposed: CODE(S): L97.512 - Non-pressure chronic 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 layer exposed (2) Chronic foot pain: CODE(S): M79.673 - Pain in unspecified foot; G89.29 - Other chronic pain QUALIFIERS: Laterality: unspecified laterality Qualified Code(s): M79.673 - Pain in unspecified foot; G89.29 - Other chronic pain (3) Delayed wound healing: CODE(S): T14.8XXD - Other injury of unspecified body region, subsequent encounter (4) Debility: CODE(S): R53.81 - Other malaise (5) Hyperglycemia due to type 2 diabetes mellitus: CODE(S): E11.65 - Type 2 diabetes mellitus with hyperglycemia QUALIFIERS: Diabetes mellitus terminal operations supervisor insulin use: with terminal operations supervisor use Qualified Code(s): E11.65 - Type 2 diabetes mellitus with hyperglycemia; Z79.4 - medical terminologist (current) use of insulin (6) Charcot's joint of left foot: CODE(S): M14.672 - Charcot's joint, left ankle and foot (7) Charcot's joint of right foot: CODE(S): M14.671 - Charcot's joint, right ankle and foot (8) Ulcer of left foot with fat layer exposed: CODE(S): L97.522 - Non-pressure chronic ulcer of other part of left foot with fat layer exposed (9) Chronic ulcer of right leg with fat layer exposed: CODE(S): L97.912 - Non-pressure chronic ulcer of unspecified part of right lower leg with fat layer exposed (10) Bacteremia: CODE(S): R78.81 - Bacteremia PLAN: Patient seen and examined. Debridement was performed as noted in the clinical nursing panel. Dressing: Change daily with Dakin Wash: Antibacterial soap and water daily She is reassured no signs of local or systemic infection are noted today. To monitor. Patient is to remain strict nonweightbearing. She is noted to have a wheelchair. To continue. She had recent hospitalization with bacteremia with suspected nidus of infection as one of her foot ulcers. She had tendon debrided from the right foot while in the hospital bedside. The current plan includes the following: six weeks iv cefepime, stop date 10/13/21. This is managed by Dr. Tello, infectious disease physician. It is noted she is already been undergoing a comprehensive wound healing plan and has delayed and nonhealing. She has had prior bone biopsies, wound culture, skin grafts, total contact cast, multiple hospital visits, surgeries, and intervention with infectious disease. Try to optimize nutrition by offering referral for nutrition patient declined. She has suspected adequate vascular perfusion for healing per her recent noninvasive vascular studies 09/01/2020 with triphasic waveforms noted. Patient's hemoglobin A1c was 13.1% on 12/29/2020. This was recently checked in June and was decreased to 9% range. Offloading strongly recommended. Optimal blood sugar control and increased protein intake also discussed. To continue nonweightbearing bilateral foot with use of wheelchair. Her group home facility placement is noted and she is doing well in this setting. Follow up in 1 to 2 weeks. All questions were answered and she was advised to call with any further questions or concerns. This note was generated with [employer] software. It may contain incorrect words, spelling, and punctuation that were not noted in checking the note before signing. She has since significantly stabilized compared her recent hospitalization status.
[2021-10-21 13:46] VITALS: BP 171/85; PULSE 101; RESP 16; TEMP 35.6; BMI 32.3
--- NOTE | 2021-10-21 20:02 | PN.PCM_ITS ---
History of Present Illness Date of Service: 10/21/21 Chief Complaint: right foot ulcer left foot ulcer History of Wound: Patient is a 56-year-old female who presents to the clinic for bilateral foot ulcers. She was recently discharged from the hospital for hypertension and Covid 19 management. She denies odor or redness. She resides at [facility]. She denies fever, chill, nausea, vomiting, foot pain. She was recently treated for bacteremia with suspected nidus from foot. She had a tendon debridement performed bedside to the right foot during her recent hospitalization. She is on a PICC line with 6-week IV antibiotic course. She has been able to offload much better now that she is in a skilled facility and is engaged in her visit today.she now resides at home. Progress of Wound: bilateral stable Objective Data Objective Data Vital Signs: Vital Signs Temp Pulse Resp BP 96.1 F L 101 H 16 171/85 H 10/21/21 13:46 10/21/21 13:46 10/21/21 13:46 10/21/21 13:46 Oxygen Delivery Method Room Air Weight: 91.138 kg Body Mass Index (BMI) 32.3 Physical Exam Narrative General Skin Exam: atrophy and dry skin; Negative for ecchymosis, no erythema, no eschar, and no odor. no purulence, no streaking Plantar left foot ulceration: No exposed tendon or probe to bone. No maceration noted. There is no erythema or edema or malodor or purulence or other suggestion signs of infection. Some slight serosanguineous drainage noted. Ulcer healing. Tissues are healthy and viable - ulcer is down to subcutaneous tissue. Plantar right foot ulceration. No exposed tendon or probe to bone. No maceration noted. There is no erythema or edema or malodor or purulence or other suggestion signs of infection. Some slight serosanguineous drainage noted. Ulcer healing. Tissues are healthy and viable - ulcer is down to subcutaneous tissue. 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 Chronic charcot foot deformity noted bilaterally, no acute deformity. No gross laxity or crepitus with manipulation. Negative calf tenderness bilateral, no evidence of DVT bilateral. CFT < 2 seconds to all toes with no evidence of acute ischemia to foot bilateral. Chronic peripheral neuropathy bilateral foot. Debridement Note Debridement Note Wound debrided: Plantar right foot, plantar left foot Wound Grade/Stage: 2, 1 Type of Debridement: Excisional debridement Anesthesia Used: 4% Lidocaine Solution Depth: in the subcutaneous layer Percentage of wound debrided: 100 Instrument Used: #15 blade Tissue Removed: fibrous, devitalized subcutaneous, biofilm, slough Severity: Fat Layer Exposed Amount of bleeding with debridement: Mild Bleeding Controlled with: Pressure Patient tolerated procedure: Patient tolerated procedure well Post-Debridement Measurements and Additional Note: Post-Debridement Measurements/Treatment [place] - Nurse 1 - General Ulcer Assessment Start: 10/14/21 13:51 Freq: Status: Active Protocol: SHANICE Activity Type Activity Date Activity User E-Sign Co-Sign Detail Recorded Client Recorded Date Recorded By Document 10/14/21 13:51 DL [id number] 10/14/21 13:58 DL Document 10/21/21 13:46 BM [id number] 10/21/21 13:54 BMF 10/14/21 10/21/21 13:51 13:46 - Today's Visit Information Type of service Follow-up Visit Follow-up Visit (Physician/BRIM PRESSER (Physician/BRIM PRESSER ) ) Arrival Mode Wheelchair Wheelchair Transfer Assistance Manual Other Transfer Assist (Other) x1 1 STAND BY Patient Identification Verified (Name & Yes Yes ) Patient Requires Transmission-Based No Precautions Finger Stick Blood Sugar(mg/dl) (if 160 indicated): Blood Sugar Stated by Patient Height and Weight Body Mass Index (BMI) 32.3 32.3 BMI Classification Obese Obese Vital Signs Temperature (97.8 F-99.1 F) 96.9 F L 96.1 F L Temperature Source Temporal Temporal Pulse Rate (60-100) 93 101 H Pulse Location Monitor Monitor Respiratory Rate (12-18) 20 H 16 Respiratory rate source Observation Observation Oxygen Delivery Method Room Air Blood Pressure (90/60-120/80) 148/78 H 171/85 H Blood Pressure Mean (mm Hg) 101 113 Source Monitor Monitor Position Sitting Blood Pressure Location Right Arm Comment PT STATES DIDN' T TAKE BP MEDS THIS AM, WILL TAKE WHEN GOES HOME. History Since Last Visit- (Skip if this is Patient's initial visit) Have you changed medications since your No No last visit? Any new allergies or adverse reactions No No Had a fall/change in ADL's that may No No increase risk of falls Signs or symptoms of abuse and/or No No neglect since last visit Have you been in the hospital since your No No last visit? Has dressing in place as prescribed Yes Yes Has compression in place as prescribed Yes Yes Has offloadiing in place as prescribed Yes N/A Experienced any changes in pain level or No management Left Footwear Slipper Slipper Right Footwear Slipper Slipper Pain Scale: 0-10 Numeric Is Patient Pain Free? Yes Yes WC - Nurse 1 - General Ulcer Measurement Start: 10/14/21 13:51 Freq: Status: Active Protocol: Activity Type Activity Date Activity User E-Sign Co-Sign Detail Recorded Client Recorded Date Recorded By Document 10/14/21 13:51 DL [id number] 10/14/21 13:58 DL Document 10/21/21 13:46 BM [id number] 10/21/21 13:54 BMF 10/14/21 10/21/21 13:51 13:46 Wound Center Nurse 1 19-right inferior plantar -Combined with other wound No -Current Size (cm) - Length 1.8 2.8 -Current Size (cm) - Width 2.1 2.3 -Current Size (cm) - Depth 0.3 0.2 -Total Square Cm 3.78 6.44 -Photo Taken No No -Epithelialization Small 1-33% -Tunneling Position (O'clock) 2 -Tunneling Distance (cm) 0.3 -Undermining/Tunneling Yes -Undermining/Tunneling Starts (O'clock 8 9 ) -Undermining/Tunneling Ends (O'clock) 12 12 -Maximum Distance (cm) 1.3 0.3 -Circular Undermining No No -Exudate Amt Medium Medium -Exudate Type Serosanguineous Serosanguineous -Wound Margin Thickened Thickened -Granulation Amt Medium (34-66%) Large (67-100%) -Granulation [place] -Slough/Fibrin No -Necrosis Amt Medium (34-66%) None Present (0 %) -Necrotic Tissue Type Adherent Slough -Structure Exposed N/A -Texture (Natacha-wound Skin Appearance) Scarring Assessed,Callus ,Scarring -Moisture (Natacha-wound Skin Appearance) Dry/Scaly Assessed, Maceration -Color (Natacha-wound Skin Appearance) No Abnormality Assessed,Palor -Temperature (Natacha-wound Skin No Abnormality No Abnormality Appearance) (Pt Warm) (Pt Warm) -Tenderness on Palpation (Natacha-wound No No Skin Appearance) -Ulcer Cleansing Soap and Water Rinsed/ Irrigated with Saline -Foul Odor after Cleansing No No -Anesthetic Used 4% Lidocaine 4% Lidocaine Solution Solution #16 L Plantar foot -Combined with other wound No -Current Size (cm) - Length 2.5 2.6 -Current Size (cm) - Width 2.2 2.9 -Current Size (cm) - Depth 0.5 0.4 -Total Square Cm 5.50 7.54 -Photo Taken No No -Epithelialization None Present -Tunneling No -Undermining/Tunneling Yes -Undermining/Tunneling Starts (O'clock 12 ) -Undermining/Tunneling Ends (O'clock) 3 -Maximum Distance (cm) 0.2 -Circular Undermining No -Exudate Amt Medium Medium -Exudate Type Serosanguineous Serosanguineous -Wound Margin Thickened Thickened -Granulation Amt Medium (34-66%) Large (67-100%) -Granulation [place] -Slough/Fibrin No -Necrosis Amt Medium (34-66%) None Present (0 %) -Necrotic Tissue Type Adherent Slough -Structure Exposed N/A -Texture (Natacha-wound Skin Appearance) Scarring Assessed,Callus ,Scarring -Moisture (Natacha-wound Skin Appearance) Dry/Scaly Assessed, Maceration -Color (Natacha-wound Skin Appearance) No Abnormality Assessed,Palor -Temperature (Natacha-wound Skin No Abnormality No Abnormality Appearance) (Pt Warm) (Pt Warm) -Tenderness on Palpation (Natacha-wound No No Skin Appearance) -Ulcer Cleansing Soap and Water Rinsed/ Irrigated with Saline -Foul Odor after Cleansing No No -Anesthetic Used 4% Lidocaine 4% Lidocaine Solution Solution Lower Limb Edema Present Yes Right Calf (cm) 35 Right Ankle (cm) 22 Left Calf (cm) 35 Left Ankle (cm) 21.6 WC - Nurse 2 - General Ulcer CM Notes Start: 10/14/21 13:51 Freq: Status: Active Protocol: Activity Type Activity Date Activity User E-Sign Co-Sign Detail Recorded Client Recorded Date Recorded By Document 10/14/21 14:13 LISSY [id number] 10/14/21 14:18 Document 10/21/21 14:02 [id number] 10/21/21 14:08 10/14/21 10/21/21 14:13 14:02 Wound Center Nurse 2 19-right inferior plantar -Time 14:14 14:03 -Correct Patient Yes Yes -Correct Side, Site, Position Yes Yes -Correct Procedure Yes Yes -Procedure Performed Yes Yes -Type of Procedure Debridement Debridement -Clinical Debridement Subcutaneous Subcutaneous -Tissue Removed Subcutaneous Subcutaneous -Post Debridement (cm) - Length 1.8 2.8 -Post Debridement (cm) - Width 2.2 2.4 -Post Debridement (cm) - Depth 1.9 1.7 -Total Square (Post) (cm) 3.96 6.72 -Area of Debridement (cm) - Length 1.8 2.8 -Area of Debridement (cm) - Width 2.2 2.4 -Total Square (Area) (cm) 3.96 6.72 -Tunneling No No -Undermining/Tunneling No No -Circular Undermining No No -Wound/Ulcer Outcome Not Healed Not Healed -Ulcer Cleansing Rinsed/ Rinsed/ Irrigated with Irrigated with Saline Saline -Foul Odor after Cleansing No No -Bioengineered Tissue No No -Bleeding Controlled with Pressure Pressure -Offloading No No -Type of Offloading Total Contact Cast (TCC) - Right ($) -Treatment Response Procedure Procedure Tolerated Well Tolerated Well -Debridement - Subq, 1st 20sq cm Yes No #16 L Plantar foot -Time 14:15 14:03 -Correct Patient Yes Yes -Correct Side, Site, Position Yes Yes -Correct Procedure Yes Yes -Procedure Performed Yes Yes -Type of Procedure Debridement Debridement -Clinical Debridement Subcutaneous Subcutaneous -Tissue Removed Subcutaneous Subcutaneous -Post Debridement (cm) - Length 2.6 2.6 -Post Debridement (cm) - Width 2.2 3.0 -Post Debridement (cm) - Depth 1.0 0.4 -Total Square (Post) (cm) 5.72 7.80 -Area of Debridement (cm) - Length 2.6 2.6 -Area of Debridement (cm) - Width 2.2 3.0 -Total Square (Area) (cm) 5.72 0 -Tunneling No No -Undermining/Tunneling No No -Circular Undermining No No -Wound/Ulcer Outcome Not Healed Not Healed -Ulcer Cleansing Rinsed/ Rinsed/ Irrigated with Irrigated with Saline Saline -Foul Odor after Cleansing No No -Bioengineered Tissue No No -Bleeding Controlled with Pressure Pressure -Offloading No No -Treatment Response Procedure Procedure Tolerated Well Tolerated Well -Debridement - Subq, 1st 20sq cm No Yes Pain Scale: 0-10 Numeric Is Patient Pain Free? Yes Yes - Nurse 3 - General Ulcer D/C NN Start: 10/14/21 13:51 Freq: Status: Active Protocol: Activity Type Activity Date Activity User E-Sign Co-Sign Detail Recorded Client Recorded Date Recorded By Document 10/14/21 14:20 PA [id number] 10/14/21 14:23 AK Document 10/21/21 14:15 PA [id number] 10/21/21 14:17 AK 10/14/21 10/21/21 14:20 14:15 Wound Care Nurse 3 19-right inferior plantar -Ulcer Cleansing Rinsed/ Rinsed/ Irrigated with Irrigated with Saline Saline -Foul Odor after Cleansing No -Negative Pressure Wound Therapy N/A -Primary Dressing Applied Aquacel AG 4x4 Aquacel AG 4x4 -Other Dressing ABD kerlix -Primary Dressing Covered/Secured with Dry Gauze & Dry Gauze & Roll Gauze, Roll Gauze, Secured with Secured with Tape Tape -Aquacel AG 4x4 1 1 #16 L Plantar foot -Ulcer Cleansing Rinsed/ Rinsed/ Irrigated with Irrigated with Saline Saline -Foul Odor after Cleansing No No -Negative Pressure Wound Therapy N/A N/A -Primary Dressing Applied Aquacel AG 4x4 Aquacel AG 4x4 -Other Dressing ABD Kerlix - Right TCC -Primary Dressing Covered/Secured with Dry Gauze & Dry Gauze & Roll Gauze, Roll Gauze, Secured with Secured with Tape Tape -Aquacel AG 4x4 0 0 Right -Lotion applied to leg before No compression wrap -Compression Wrap [place] Wrap Left -Lotion applied to leg before No No compression wrap -Compression Wrap [place] Wrap -Other own tubi Pain Scale: 0-10 Numeric Is Patient Pain Free? Yes WC - Visit Discharge Discharge Condition Stable Stable Ambulatory Status Ambulatory Wheelchair Transportation Private Auto Medication Reconcilliation completed & No No provided to patient/care provider Clinical Summary of Care Provided Yes Yes Assessment/Plan Assessment/Plan (1) Chronic ulcer of right foot with fat layer exposed: CODE(S): L97.512 - Non-pressure chronic 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 layer exposed (2) Chronic foot pain: CODE(S): M79.673 - Pain in unspecified foot; G89.29 - Other chronic pain QUALIFIERS: Laterality: unspecified laterality Qualified Code(s): M79.673 - Pain in unspecified foot; G89.29 - Other chronic pain (3) Delayed wound healing: CODE(S): T14.8XXD - Other injury of unspecified body region, subsequent encounter (4) Debility: CODE(S): R53.81 - Other malaise (5) Hyperglycemia due to type 2 diabetes mellitus: CODE(S): E11.65 - Type 2 diabetes mellitus with hyperglycemia QUALIFIERS: Diabetes mellitus chcf insulin use: with chcf use Qualified Code(s): E11.65 - Type 2 diabetes mellitus with hyperglycemia; Z79.4 - intermediate accountant (current) use of insulin (6) Charcot's joint of left foot: CODE(S): M14.672 - Charcot's joint, left ankle and foot (7) Charcot's joint of right foot: CODE(S): M14.671 - Charcot's joint, right ankle and foot (8) Ulcer of left foot with fat layer exposed: CODE(S): L97.522 - Non-pressure chronic ulcer of other part of left foot with fat layer exposed (9) Chronic ulcer of right leg with fat layer exposed: CODE(S): L97.912 - Non-pressure chronic ulcer of unspecified part of right lower leg with fat layer exposed (10) Bacteremia: CODE(S): R78.81 - Bacteremia PLAN: Patient seen and examined. Debridement was performed as noted in the clinical nursing panel. Dressing: Change daily with Aquacel Ag Wash: Antibacterial soap and water daily She is reassured no signs of local or systemic infection are noted today. To monitor. Patient is to remain strict nonweightbearing. She is noted to have a wheelchair. To continue. She had recent hospitalization with bacteremia with suspected nidus of infection as one of her foot ulcers. She had tendon debrided from the right foot while in the hospital bedside. The current plan includes the following: six weeks iv cefepime, stop date 10/13/21. This is managed by Dr. Tello, infectious disease physician. She does not have any local signs of infection noted today. It is noted she is already been undergoing a comprehensive wound healing plan and has delayed and nonhealing. She has had prior bone biopsies, wound culture, skin grafts, total contact cast, multiple hospital visits, surgeries, and intervention with infectious disease. Try to optimize nutrition by offering referral for nutrition patient declined. She has suspected adequate vascular perfusion for healing per her recent noninvasive vascular studies 09/01/2020 with triphasic waveforms noted. Patient's hemoglobin A1c was 13.1% on 12/29/2020. This was recently checked in June and was decreased to 9% range. Offloading strongly recommended. Optimal blood sugar control and increased protein intake also discussed. To continue nonweightbearing bilateral foot with use of wheelchair. Her [facility] facility placement is noted and she is doing well in this setting. Follow up in 1 to 2 weeks at the wound healing center. All questions were answered and she was advised to call with any further questions or concerns. This note was generated with [employer] dictation software. It may contain incorrect words, spelling, and punctuation that were not noted in checking the note before signing.
[2021-10-28 15:28] VITALS: BP 185/98; PULSE 98; RESP 18; TEMP 35.5; BMI 32.3
--- NOTE | 2021-10-28 16:25 | PN.PCM_ITS ---
History of Present Illness Date of Service: 10/28/21 Chief Complaint: right foot ulcer left foot ulcer History of Wound: Patient is a 56-year-old female who presents to the clinic for bilateral foot ulcers. She was recently discharged from the hospital for hypertension and Covid 19 management. She denies odor or redness. She resides at home now. It is noted she was recently hospitalized for abnormal glucose levels and these records were reviewed. She denies fever, chill, nausea, vomiting, foot pain, redness, odor. She tolerated total contact cast well this past week and this remained intact during her recent hospitalization. Progress of Wound: Improving right Stable left Objective Data Objective Data Vital Signs: Vital Signs Temp Pulse Resp BP 96 F L 98 18 185/98 H 10/28/21 15:28 10/28/21 15:28 10/28/21 15:28 10/28/21 15:28 Oxygen Delivery Method Room Air Weight: 91.138 kg Body Mass Index (BMI) 32.3 Physical Exam Narrative General Skin Exam: atrophy and dry skin; Negative for ecchymosis, no erythema, no eschar, and no odor. no purulence, no streaking Plantar left foot ulceration: No exposed tendon or probe to bone. No maceration noted. There is no erythema or edema or malodor or purulence or oth er suggestion signs of infection. Some slight serosanguineous drainage noted. Ulcer healing. Tissues are healthy and viable - ulcer is down to subcutaneous tissue. Plantar right foot ulceration. No exposed tendon or probe to bone; reduced ulcer depth. No maceration noted. There is no erythema or edema or malodor or purulence or other suggestion signs of infection. Some slight serosanguineous drainage noted. Ulcer healing. Tissues are healthy and viable - ulcer is down to subcutaneous tissue. 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 Chronic charcot foot deformity noted bilaterally, no acute deformity. No gross laxity or crepitus with manipulation. Negative calf tenderness bilateral, no evidence of DVT bilateral. CFT < 2 seconds to all toes with no evidence of acute ischemia to foot bilateral. Chronic peripheral neuropathy bilateral foot. Debridement Note Debridement Note Wound debrided: plantar right foot, plantar left foot Wound Grade/Stage: 2,1 Type of Debridement: Excisional debridement Anesthesia Used: 4% Lidocaine Solution Depth: in the subcutaneous layer Percentage of wound debrided: 100 Instrument Used: #15 blade Tissue Removed: fibrous, devitalized subcutaneous, biofilm, slough Severity: Fat Layer Exposed Amount of bleeding with debridement: Mild Bleeding Controlled with: Pressure Patient tolerated procedure: Patient tolerated procedure well Post-Debridement Measurements and Additional Note: Post-Debridement Measurements/Treatment WC - Nurse 1 - General Ulcer Assessment Start: 10/14/21 13:51 Freq: Status: Active Protocol: TENNILLE.LOWEXT Activity Type Activity Date Activity User E-Sign Co-Sign Detail Recorded Client Recorded Date Recorded By Document 10/14/21 13:51 DL [id number] 10/14/21 13:58 DL Document 10/21/21 13:46 BMF [id number] 10/21/21 13:54 BMF Document 10/28/21 15:28 [facility] [id number] 10/28/21 15:45 BMF 10/14/21 10/21/21 10/28/21 13:51 13:46 15:28 - Today's Visit Information Type of service Follow-up Visit Follow-up Visit Follow-up Visit (Physician/BASS SINGER (Physician/BASS SINGER (Physician/BASS SINGER ) ) ) Arrival Mode Wheelchair Wheelchair Wheelchair Transfer Assistance Manual Other Other Transfer Assist (Other) x1 1 STAND BY STAND BY Patient Identification Verified (Name & Yes Yes Yes ) Patient Requires Transmission-Based No No Precautions Finger Stick Blood Sugar(mg/dl) (if 160 indicated): Blood Sugar Stated by Patient Height and Weight Body Mass Index (BMI) 32.3 32.3 32.3 BMI Classification Obese Obese Obese Vital Signs Temperature (97.8 F-99.1 F) 96.9 F L 96.1 F L 96 F L Temperature Source Temporal Temporal Temporal Pulse Rate (60-100) 93 101 H 98 Pulse Location Monitor Monitor Monitor Respiratory Rate (12-18) 20 H 16 18 Respiratory rate source Observation Observation Observation Oxygen Delivery Method Room Air Room Air Blood Pressure (90/60-120/80) 148/78 H 171/85 H 185/98 H Blood Pressure Mean (mm Hg) 101 113 127 Source Monitor Monitor Monitor Position Sitting Sitting Blood Pressure Location Right Arm Right Forearm Comment PT STATES DIDN' T TAKE BP MEDS THIS AM, WILL TAKE WHEN GOES HOME. History Since Last Visit- (Skip if this is Patient's initial visit) Have you changed medications since your No No Yes last visit? Any new allergies or adverse reactions No No No Had a fall/change in ADL's that may No No No increase risk of falls Signs or symptoms of abuse and/or No No No neglect since last visit Have you been in the hospital since your No No Yes last visit? Has dressing in place as prescribed Yes Yes Yes Has compression in place as prescribed Yes Yes Yes Has offloadiing in place as prescribed Yes N/A Yes Experienced any changes in pain level or No No management Left Footwear Slipper Slipper Total Contact Cast Right Footwear Slipper Slipper Removable Cast Walker/Walking Boot Pain Scale: 0-10 Numeric Is Patient Pain Free? Yes Yes No L SHOULDER -Description Sharp,Throbbing -Intensity 8 -Duration (hours) Acute -Pain Behavior Rubbing Site, Facial Grimacing -Alleviating Factors/Interventions Inactivity/ Resting, Exercise/ Ambulation, Turning/ Repositioning, Distraction, Will continue to monitor, Patient denies need for intervention, Emotional Support WC - Nurse 1 - General Ulcer Measurement Start: 10/14/21 13:51 Freq: Status: Active Protocol: Activity Type Activity Date Activity User E-Sign Co-Sign Detail Recorded Client Recorded Date Recorded By Document 10/14/21 13:51 [id number] 10/14/21 13:58 Document 10/21/21 13:46 [facility] [id number] 10/21/21 13:54 [facility] Document 10/28/21 15:28 [facility] [id number] 10/28/21 15:45 [facility] 10/14/21 10/21/21 10/28/21 13:51 13:46 15:28 Wound Center Nurse 1 19-right inferior plantar -Combined with other wound No No -Current Size (cm) - Length 1.8 2.8 2.3 -Current Size (cm) - Width 2.1 2.3 2.3 -Current Size (cm) - Depth 0.3 0.2 0.2 -Total Square Cm 3.78 6.44 5.29 -Photo Taken No No No -Epithelialization Small 1-33% Small 1-33% -Tunneling No -Tunneling Position (O'clock) 2 -Tunneling Distance (cm) 0.3 -Undermining/Tunneling Yes No -Undermining/Tunneling Starts (O'clock 8 9 ) -Undermining/Tunneling Ends (O'clock) 12 12 -Maximum Distance (cm) 1.3 0.3 -Circular Undermining No No No -Exudate Amt Medium Medium Large -Exudate Type Serosanguineous Serosanguineous Serosanguineous -Wound Margin Thickened Thickened Distinct, Outline Attached -Granulation Amt Medium (34-66%) Large (67-100%) Large (67-100%) -Granulation Quality [place] -Slough/Fibrin No No -Necrosis Amt Medium (34-66%) None Present (0 None Present (0 %) %) -Necrotic Tissue Type Adherent Slough -Structure Exposed N/A -Texture (Natacha-wound Skin Appearance) Scarring Assessed,Callus Assessed,Callus ,Scarring ,Scarring -Moisture (Natacha-wound Skin Appearance) Dry/Scaly Assessed, Assessed, Maceration Maceration,Dry/ Scaly -Color (Natacha-wound Skin Appearance) No Abnormality Assessed,Palor Assessed,Palor -Temperature (Natacha-wound Skin No Abnormality No Abnormality No Abnormality Appearance) (Pt Warm) (Pt Warm) (Pt Warm) -Tenderness on Palpation (Natacha-wound No No No Skin Appearance) -Ulcer Cleansing Soap and Water Rinsed/ Soap and Water Irrigated with Saline -Foul Odor after Cleansing No No No -Anesthetic Used 4% Lidocaine 4% Lidocaine 5% Lidocaine Solution Solution Gel #16 L Plantar foot -Combined with other wound No No -Current Size (cm) - Length 2.5 2.6 2.3 -Current Size (cm) - Width 2.2 2.9 2 -Current Size (cm) - Depth 0.5 0.4 0.5 -Total Square Cm 5.50 7.54 4.6 -Photo Taken No No No -Epithelialization None Present Small 1-33% -Tunneling No No -Undermining/Tunneling Yes No -Undermining/Tunneling Starts (O'clock 12 ) -Undermining/Tunneling Ends (O'clock) 3 -Maximum Distance (cm) 0.2 -Circular Undermining No No -Exudate Amt Medium Medium Large -Exudate Type Serosanguineous Serosanguineous Serosanguineous -Wound Margin Thickened Thickened Distinct, Outline Attached -Granulation Amt Medium (34-66%) Large (67-100%) Large (67-100%) -Granulation Quality [place] -Slough/Fibrin No No -Necrosis Amt Medium (34-66%) None Present (0 None Present (0 %) %) -Necrotic Tissue Type Adherent Slough -Structure Exposed N/A -Texture (Natacha-wound Skin Appearance) Scarring Assessed,Callus Assessed,Callus ,Scarring ,Scarring -Moisture (Natacha-wound Skin Appearance) Dry/Scaly Assessed, Assessed Maceration -Color (Natacha-wound Skin Appearance) No Abnormality Assessed,Palor Assessed -Temperature ([place]acha-wound Skin No Abnormality No Abnormality No Abnormality Appearance) (Pt Warm) (Pt Warm) (Pt Warm) -Tenderness on Palpation (Natacha-wound No No No Skin Appearance) -Ulcer Cleansing Soap and Water Rinsed/ Soap and Water Irrigated with Saline -Foul Odor after Cleansing No No No -Anesthetic Used 4% Lidocaine 4% Lidocaine 5% Lidocaine Solution Solution Gel Lower Limb Edema Present Yes Yes Right Calf (cm) 35 37.7 Right Ankle (cm) 22 22.2 Left Calf (cm) 35 37.6 Left Ankle (cm) 21.6 21.5 WC - Nurse 2 - General Ulcer CM Notes Start: 10/14/21 13:51 Freq: Status: Active Protocol: Activity Type Activity Date Activity User E-Sign Co-Sign Detail Recorded Client Recorded Date Recorded By Document 10/14/21 14:13 [id number] 10/14/21 14:18 Document 10/21/21 14:02 [id number] 10/21/21 14:08 Document 10/28/21 15:54 [id number] 10/28/21 16:06 10/14/21 10/21/21 10/28/21 14:13 14:02 15:54 Wound Center Nurse 2 19-right inferior plantar -Time 14:14 14:03 15:54 -Correct Patient Yes Yes Yes -Correct Side, Site, Position Yes Yes Yes -Correct Procedure Yes Yes Yes -Procedure Performed Yes Yes Yes -Type of Procedure Debridement Debridement Debridement -Clinical Debridement Subcutaneous Subcutaneous Subcutaneous -Tissue Removed Subcutaneous Subcutaneous Subcutaneous -Post Debridement (cm) - Length 1.8 2.8 2.4 -Post Debridement (cm) - Width 2.2 2.4 2.4 -Post Debridement (cm) - Depth 1.9 1.7 0.2 -Total Square (Post) (cm) 3.96 6.72 5.76 -Area of Debridement (cm) - Length 1.8 2.8 2.4 -Area of Debridement (cm) - Width 2.2 2.4 2.4 -Total Square (Area) (cm) 3.96 6.72 5.76 -Tunneling No No No -Undermining/Tunneling No No No -Circular Undermining No No No -Wound/Ulcer Outcome Not Healed Not Healed Not Healed -Ulcer Cleansing Rinsed/ Rinsed/ Rinsed/ Irrigated with Irrigated with Irrigated with Saline Saline Saline -Foul Odor after Cleansing No No No -Bioengineered Tissue No No No -Bleeding Controlled with Pressure Pressure Pressure -Offloading No No Yes -Type of Offloading Total Contact Total Contact Cast (TCC) - Cast (TCC) - Right ($) Right ($) -Treatment Response Procedure Procedure Procedure Tolerated Well Tolerated Well Tolerated Well -Debridement - Subq, 1st 20sq cm Yes No No #16 L Plantar foot -Time 14:15 14:03 15:55 -Correct Patient Yes Yes Yes -Correct Side, Site, Position Yes Yes Yes -Correct Procedure Yes Yes Yes -Procedure Performed Yes Yes Yes -Type of Procedure Debridement Debridement Debridement -Clinical Debridement Subcutaneous Subcutaneous Subcutaneous -Tissue Removed Subcutaneous Subcutaneous Subcutaneous -Post Debridement (cm) - Length 2.6 2.6 2.4 -Post Debridement (cm) - Width 2.2 3.0 2 -Post Debridement (cm) - Depth 1.0 0.4 0.5 -Total Square (Post) (cm) 5.72 7.80 4.8 -Area of Debridement (cm) - Length 2.6 2.6 2.4 -Area of Debridement (cm) - Width 2.2 3.0 2.0 -Total Square (Area) (cm) 5.72 0 4.80 -Tunneling No No No -Undermining/Tunneling No No No -Circular Undermining No No No -Wound/Ulcer Outcome Not Healed Not Healed Not Healed -Ulcer Cleansing Rinsed/ Rinsed/ Rinsed/ Irrigated with Irrigated with Irrigated with Saline Saline Saline -Foul Odor after Cleansing No No No -Bioengineered Tissue No No No -Bleeding Controlled with Pressure Pressure Pressure -Offloading No No Yes -Type of Offloading Camwalker -Treatment Response Procedure Procedure Procedure Tolerated Well Tolerated Well Tolerated Well -Debridement - Subq, 1st 20sq cm No Yes Yes Pain Scale: 0-10 Numeric Is Patient Pain Free? Yes Yes Yes WC - Nurse 3 - General Ulcer D/C NN Start: 10/14/21 13:51 Freq: Status: Active Protocol: Activity Type Activity Date Activity User E-Sign Co-Sign Detail Recorded Client Recorded Date Recorded By Document 10/14/21 14:20 [place] [id number] 10/14/21 14:23 AK Document 10/21/21 14:15 AK [id number] 10/21/21 14:17 AK Document 10/28/21 16:07 [id number] 10/28/21 16:07 JF 10/14/21 10/21/21 10/28/21 14:20 14:15 16:07 Wound Care Nurse 3 19-right inferior plantar -Ulcer Cleansing Rinsed/ Rinsed/ Rinsed/ Irrigated with Irrigated with Irrigated with Saline Saline Saline -Foul Odor after Cleansing No No -Negative Pressure Wound Therapy N/A -Primary Dressing Applied Aquacel AG 4x4 Aquacel AG 4x4 Aquacel AG 4x4 -Other Dressing ABD kerlix -Primary Dressing Covered/Secured with Dry Gauze & Dry Gauze & Dry Gauze & Roll Gauze, Roll Gauze, Roll Gauze Secured with Secured with Tape Tape -Aquacel AG 4x4 1 1 1 #16 L Plantar foot -Ulcer Cleansing Rinsed/ Rinsed/ Rinsed/ Irrigated with Irrigated with Irrigated with Saline Saline Saline -Foul Odor after Cleansing No No No -Negative Pressure Wound Therapy N/A N/A -Primary Dressing Applied Aquacel AG 4x4 Aquacel AG 4x4 Aquacel AG 4x4 -Other Dressing ABD Kerlix - Right TCC -Primary Dressing Covered/Secured with Dry Gauze & Dry Gauze & Dry Gauze & Roll Gauze, Roll Gauze, Roll Gauze, Secured with Secured with Secured with Tape Tape Tape -Aquacel AG 4x4 0 0 0 Right -Lotion applied to leg before No compression wrap -Compression Wrap [place] Wrap Left -Lotion applied to leg before No No compression wrap -Compression Wrap [place] Wrap [place] Wrap -Other own tubi Pain Scale: 0-10 Numeric Is Patient Pain Free? Yes Yes WC - Visit Discharge Discharge Condition Stable Stable Stable Ambulatory Status Ambulatory Wheelchair Ambulatory, Wheelchair Transportation Private Auto Private Auto Medication Reconcilliation completed & No No Yes provided to patient/care provider Clinical Summary of Care Provided Yes Yes Yes Assessment/Plan Assessment/Plan (1) Chronic ulcer of right foot with fat layer exposed: CODE(S): L97.512 - Non-pressure chronic 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 layer exposed (2) Chronic foot pain: CODE(S): M79.673 - Pain in unspecified foot; G89.29 - Other chronic pain QUALIFIERS: Laterality: unspecified laterality Qualified Code(s): M79.673 - Pain in unspecified foot; G89.29 - Other chronic pain (3) Delayed wound healing: CODE(S): T14.8XXD - Other injury of unspecified body region, subsequent encounter (4) Debility: CODE(S): R53.81 - Other malaise (5) Hyperglycemia due to type 2 diabetes mellitus: CODE(S): E11.65 - Type 2 diabetes mellitus with hyperglycemia QUALIFIERS: Diabetes mellitus prison insulin use: with termite control representative use Qualified Code(s): E11.65 - Type 2 diabetes mellitus with hyperglycemia; Z79.4 - residential (current) use of insulin (6) Charcot's joint of left foot: CODE(S): M14.672 - Charcot's joint, left ankle and foot (7) Charcot's joint of right foot: CODE(S): M14.671 - Charcot's joint, right ankle and foot (8) Ulcer of left foot with fat layer exposed: CODE(S): L97.522 - Non-pressure chronic ulcer of other part of left foot with fat layer exposed (9) Bacteremia: CODE(S): R78.81 - Bacteremia PLAN: Patient seen and examined. Debridement was performed as noted in the clinical nursing panel. Dressing: Change daily with Aquacel Ag, left. Aquacel Ag was also applied to t he right foot and an additional total contact cast was applied will be left intact this next week. Wash: Antibacterial soap and water daily left Verbal consent was obtained to apply total contact cast to the right lower extremity. This was applied according to standard protocol in a rectus well- padded manner. She tolerated this well. A cast shoe was also provided. She was advised keep this clean, dry, and intact until follow-up next week. She is reassured no signs of local or systemic infection are noted today. To monitor. Patient is to remain strict nonweightbearing. She is noted to have a wheelchair. To continue. She had recent hospitalization for abnormal glucose levels and these notes were reviewed. I advised her to work with her care source new accounts banking representative to obtain a glucometer at home to prevent further illness and hospitalizations. She was reassured there are no local or systemic signs of illness. It is noted she is already been undergoing a comprehensive wound healing plan and has delayed and nonhealing. She has had prior bone biopsies, wound culture, skin grafts, total contact cast, multiple hospital visits, surgeries, and intervention with infectious disease. Try to optimize nutrition by offering referral for nutrition patient declined. She has suspected adequate vascular perfusion for healing per her recent noninvasive vascular studies 09/01/2020 wit h triphasic waveforms noted. Patient's hemoglobin A1c was 13.1% on 12/29/2020. This was recently checked in June and was decreased to 9% range. Offloading strongly recommended. Optimal blood sugar control and increased protein intake also discussed. To continue nonweightbearing bilateral foot with use of wheelchair. Her longterm facility placement is noted and she is doing well in this setting. Follow up in 1 to 2 weeks at the wound healing center. All questions were answered and she was advised to call with any further questions or concerns. This note was generated with [employer] dictation software. It may contain incorrect words, spelling, and punctuation that were not noted in checking the note before signing.
[2021-11-04 14:56] VITALS: BP 169/93; PULSE 106; RESP 18; TEMP 35.7; BMI 32.3
--- NOTE | 2021-11-04 17:11 | PN.PCM_ITS ---
History of Present Illness Date of Service: 11/04/21 Chief Complaint: right foot ulcer left foot ulcer History of Wound: Patient is a 56-year-old female who presents to the clinic for bilateral foot ulcers. She was recently discharged from the hospital for hypertension and Covid 19 management. She denies odor or redness. She resides at home now. It is noted she was recently hospitalized for abnormal glucose levels and these records were reviewed. She denies fever, chill, nausea, vomiting, foot pain, redness, odor. She tolerated total contact cast well this past week and this remained intact during her recent hospitalization. She is amendable to have another application today. Progress of Wound: Improving right Stable left Objective Data Objective Data Vital Signs: Vital Signs Temp Pulse Resp BP 96.3 F L 106 H 18 169/93 H 11/04/21 14:56 11/04/21 14:56 11/04/21 14:56 11/04/21 14:56 Oxygen Delivery Method Room Air Weight: 91.138 kg Body Mass Index (BMI) 32.3 Physical Exam Narrative General Skin Exam: atrophy and dry skin; Negative for ecchymosis, no erythema, no eschar, and no odor. no purulence, no streaking Plantar left foot ulceration: No exposed tendon or probe to bone. No maceration noted. There is no erythema or edema or malodor or purulence or other suggestion signs of infection. Some slight serosanguineous drainage noted. Ulcer healing. Tissues are healthy and viable - ulcer is down to subcutaneous tissue. Plantar right foot ulceration. No exposed tendon or probe to bone; reduced ulcer depth. No maceration noted. There is no erythema or edema or malodor or purulence or other suggestion signs of infection. Some slight serosanguineous drainage noted. Ulcer healing. Tissues are healthy and viable - ulcer is down to subcutaneous tissue. 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 Chronic charcot foot deformity noted bilaterally, no acute deformity. No gross laxity or crepitus with manipulation. Negative calf tenderness bilateral, no evidence of DVT bilateral. CFT < 2 seconds to all toes with no evidence of acute ischemia to foot bilateral. Chronic peripheral neuropathy bilateral foot. Debridement Note Debridement Note Wound debrided: Plantar right foot, plantar left foot Wound Grade/Stage: 2, 1 Type of Debridement: Excisional debridement Anesthesia Used: 4% Lidocaine Solution Depth: in the subcutaneous layer Percentage of wound debrided: 100 Instrument Used: #15 blade Tissue Removed: fibrous, devitalized subcutaneous, biofilm, slough Severity: Fat Layer Exposed Amount of bleeding with debridement: Mild Bleeding Controlled with: Pressure Patient tolerated procedure: Patient tolerated procedure well Post-Debridement Measurements and Additional Note: Post-Debridement Measurements/Treatment - Nurse 1 - General Ulcer Assessment Start: 10/14/21 13:51 Freq: Status: Active Protocol: SHANICE Activity Type Activity Date Activity User E-Sign Co-Sign Detail Recorded Client Recorded Date Recorded By Document 10/14/21 13:51 DL [id number] 10/14/21 13:58 DL Document 10/21/21 13:46 BMF [id number] 10/21/21 13:54 BMF Document 10/28/21 15:28 BMF [id number] 10/28/21 15:45 BMF Document 11/04/21 14:56 MW [id number] 11/04/21 15:02 MW 10/14/21 10/21/21 10/28/21 13:51 13:46 15:28 - Today's Visit Information Type of service Follow-up Visit Follow-up Visit Follow-up Visit (Physician/HOSPITAL ACCOUNT MANAGER (Physician/HOSPITAL ACCOUNT MANAGER (Physician/HOSPITAL ACCOUNT MANAGER ) ) ) Arrival Mode Wheelchair Wheelchair Wheelchair Transfer Assistance Manual Other Other Transfer Assist (Other) x1 1 STAND BY STAND BY Accompanied by Patient Identification Verified (Name & Yes Yes Yes ) Patient Requires Transmission-Based No No Precautions Safety Precautions Finger Stick Blood Sugar(mg/dl) (if 160 indicated): Blood Sugar Stated by Patient Height and Weight Body Mass Index (BMI) 32.3 32.3 32.3 BMI Classification Obese Obese Obese Vital Signs Temperature (97.8 F-99.1 F) 96.9 F L 96.1 F L 96 F L Temperature Source Temporal Temporal Temporal Pulse Rate (60-100) 93 101 H 98 Pulse Location Monitor Monitor Monitor Respiratory Rate (12-18) 20 H 16 18 Respiratory rate source Observation Observation Observation Oxygen Delivery Method Room Air Room Air Blood Pressure (90/60-120/80) 148/78 H 171/85 H 185/98 H Blood Pressure Mean (mm Hg) 101 113 127 Source Monitor Monitor Monitor Position Sitting Sitting Blood Pressure Location Right Arm Right Forearm Comment PT STATES DIDN' T TAKE BP MEDS THIS AM, WILL TAKE WHEN GOES HOME. History Since Last Visit- (Skip if this is Patient's initial visit) Have you changed medications since your No No Yes last visit? Any new allergies or adverse reactions No No No Had a fall/change in ADL's that may No No No increase risk of falls Signs or symptoms of abuse and/or No No No neglect since last visit Have you been in the hospital since your No No Yes last visit? Has dressing in place as prescribed Yes Yes Yes Has compression in place as prescribed Yes Yes Yes Has offloadiing in place as prescribed Yes N/A Yes Experienced any changes in pain level or No No management Left Footwear Slipper Slipper Total Contact Cast Right Footwear Slipper Slipper Removable Cast Walker/Walking Boot Pain Scale: 0-10 Numeric Is Patient Pain Free? Yes Yes No L SHOULDER -Description Sharp,Throbbing -Intensity 8 -Duration (hours) Acute -Pain Behavior Rubbing Site, Facial Grimacing -Alleviating Factors/Interventions Inactivity/ Resting, Exercise/ Ambulation, Turning/ Repositioning, Distraction, Will continue to monitor, Patient denies need for intervention, Emotional Support 11/04/21 14:56 WC - Today's Visit Information Type of service Follow-up Visit (Physician/HOSPITAL ACCOUNT MANAGER ) Arrival Mode Wheelchair Transfer Assistance Manual Transfer Assist (Other) Accompanied by self Patient Identification Verified (Name & Yes ) Patient Requires Transmission-Based No Precautions Safety Precautions Fall Prevention Finger Stick Blood Sugar(mg/dl) (if indicated): Blood Sugar Height and Weight Body Mass Index (BMI) 32.3 BMI Classification Obese Vital Signs Temperature (97.8 F-99.1 F) 96.3 F L Temperature Source Temporal Pulse Rate (60-100) 106 H Pulse Location Monitor Respiratory Rate (12-18) 18 Respiratory rate source Observation Oxygen Delivery Method Room Air Blood Pressure (90/60-120/80) 169/93 H Blood Pressure Mean (mm Hg) 118 Source Monitor Position Sitting Blood Pressure Location Left Arm Comment History Since Last Visit- (Skip if this is Patient's initial visit) Have you changed medications since your No last visit? Any new allergies or adverse reactions No Had a fall/change in ADL's that may No increase risk of falls Signs or symptoms of abuse and/or No neglect since last visit Have you been in the hospital since your No last visit? Has dressing in place as prescribed Yes Has compression in place as prescribed Yes Has offloadiing in place as prescribed N/A Experienced any changes in pain level or No management Left Footwear Removable Cast Walker/Walking Boot Right Footwear Total Contact Cast Pain Scale: 0-10 Numeric Is Patient Pain Free? Yes L SHOULDER -Description -Intensity -Duration (hours) -Pain Behavior -Alleviating Factors/Interventions WC - Nurse 1 - General Ulcer Measurement Start: 10/14/21 13:51 Freq: Status: Active Protocol: Activity Type Activity Date Activity User E-Sign Co-Sign Detail Recorded Client Recorded Date Recorded By Document 10/14/21 13:51 DL [id number] 10/14/21 13:58 DL Document 10/21/21 13:46 BMF [id number] 10/21/21 13:54 BMF Document 10/28/21 15:28 BMF [id number] 10/28/21 15:45 BMF Document 11/04/21 14:56 MW [id number] 11/04/21 15:02 MW 10/14/21 10/21/21 10/28/21 13:51 13:46 15:28 Wound Center Nurse 1 19-right inferior plantar -Combined with other wound No No -Current Size (cm) - Length 1.8 2.8 2.3 -Current Size (cm) - Width 2.1 2.3 2.3 -Current Size (cm) - Depth 0.3 0.2 0.2 -Total Square Cm 3.78 6.44 5.29 -Photo Taken No No No -Epithelialization Small 1-33% Small 1-33% -Tunneling No -Tunneling Position (O'clock) 2 -Tunneling Distance (cm) 0.3 -Undermining/Tunneling Yes No -Undermining/Tunneling Starts (O'clock 8 9 ) -Undermining/Tunneling Ends (O'clock) 12 12 -Maximum Distance (cm) 1.3 0.3 -Circular Undermining No No No -Exudate Amt Medium Medium Large -Exudate Type Serosanguineous Serosanguineous Serosanguineous -Wound Margin Thickened Thickened Distinct, Outline Attached -Granulation Amt Medium (34-66%) Large (67-100%) Large (67-100%) -Granulation Quality [place],Red [place] -Slough/Fibrin No No -Necrosis Amt Medium (34-66%) None Present (0 None Present (0 %) %) -Necrotic Tissue Type Adherent Slough -Structure Exposed N/A -Texture (Natacha-wound Skin Appearance) Scarring Assessed,Callus Assessed,Callus ,Scarring ,Scarring -Moisture (Natacha-wound Skin Appearance) Dry/Scaly Assessed, Assessed, Maceration Maceration,Dry/ Scaly -Color (Natacha-wound Skin Appearance) No Abnormality Assessed,Palor Assessed,Palor -Temperature (Natacha-wound Skin No Abnormality No Abnormality No Abnormality Appearance) (Pt Warm) (Pt Warm) (Pt Warm) -Tenderness on Palpation (Natacha-wound No No No Skin Appearance) -Ulcer Cleansing Soap and Water Rinsed/ Soap and Water Irrigated with Saline -Foul Odor after Cleansing No No No -Anesthetic Used 4% Lidocaine 4% Lidocaine 5% Lidocaine Solution Solution Gel #16 L Plantar foot -Combined with other wound No No -Current Size (cm) - Length 2.5 2.6 2.3 -Current Size (cm) - Width 2.2 2.9 2 -Current Size (cm) - Depth 0.5 0.4 0.5 -Total Square Cm 5.50 7.54 4.6 -Photo Taken No No No -Epithelialization None Present Small 1-33% -Tunneling No No -Undermining/Tunneling Yes No -Undermining/Tunneling Starts (O'clock 12 ) -Undermining/Tunneling Ends (O'clock) 3 -Maximum Distance (cm) 0.2 -Circular Undermining No No -Exudate Amt Medium Medium Large -Exudate Type Serosanguineous Serosanguineous Serosanguineous -Wound Margin Thickened Thickened Distinct, Outline Attached -Granulation Amt Medium (34-66%) Large (67-100%) Large (67-100%) -Granulation Quality [place],Red [place] -Slough/Fibrin No No -Necrosis Amt Medium (34-66%) None Present (0 None Present (0 %) %) -Necrotic Tissue Type Adherent Slough -Structure Exposed N/A -Texture (Natacha-wound Skin Appearance) Scarring Assessed,Callus Assessed,Callus ,Scarring ,Scarring -Moisture (Natacha-wound Skin Appearance) Dry/Scaly Assessed, Assessed Maceration -Color (Natacha-wound Skin Appearance) No Abnormality Assessed,Palor Assessed -Temperature (Natacha-wound Skin No Abnormality No Abnormality No Abnormality Appearance) (Pt Warm) (Pt Warm) (Pt Warm) -Tenderness on Palpation (Natacha-wound No No No Skin Appearance) -Ulcer Cleansing Soap and Water Rinsed/ Soap and Water Irrigated with Saline -Foul Odor after Cleansing No No No -Anesthetic Used 4% Lidocaine 4% Lidocaine 5% Lidocaine Solution Solution Gel Lower Limb Edema Present Yes Yes Right Calf (cm) 35 37.7 Right Ankle (cm) 22 22.2 Left Calf (cm) 35 37.6 Left Ankle (cm) 21.6 21.5 11/04/21 14:56 Wound Center Nurse 1 19-right inferior plantar -Combined with other wound No -Current Size (cm) - Length 1.7 -Current Size (cm) - Width 2.1 -Current Size (cm) - Depth 0.1 -Total Square Cm 3.57 -Photo Taken No -Epithelialization None Present -Tunneling No -Tunneling Position (O'clock) -Tunneling Distance (cm) -Undermining/Tunneling No -Undermining/Tunneling Starts (O'clock ) -Undermining/Tunneling Ends (O'clock) -Maximum Distance (cm) -Circular Undermining No -Exudate Amt Large -Exudate Type Serosanguineous -Wound Margin Flat & Intact -Granulation Amt Large (67-100%) -Granulation Quality Hyper- granulation -Slough/Fibrin Yes -Necrosis Amt Small (1-33%) -Necrotic Tissue Type Adherent Slough -Structure Exposed N/A -Texture (Natacha-wound Skin Appearance) Assessed, Localized Edema ,Scarring -Moisture (Natacha-wound Skin Appearance) Assessed, Maceration -Color (Natacha-wound Skin Appearance) No Abnormality, Assessed -Temperature (Natacha-wound Skin No Abnormality Appearance) (Pt Warm) -Tenderness on Palpation (Natacha-wound No Skin Appearance) -Ulcer Cleansing Soap and Water -Foul Odor after Cleansing No -Anesthetic Used 4% Lidocaine Solution #16 L Plantar foot -Combined with other wound No -Current Size (cm) - Length 2.7 -Current Size (cm) - Width 1.9 -Current Size (cm) - Depth 0.3 -Total Square Cm 5.13 -Photo Taken No -Epithelialization None Present -Tunneling No -Undermining/Tunneling No -Undermining/Tunneling Starts (O'clock ) -Undermining/Tunneling Ends (O'clock) -Maximum Distance (cm) -Circular Undermining No -Exudate Amt Medium -Exudate Type Serosanguineous -Wound Margin Fibrotic Scar, Thickened Scar -Granulation Amt Large (67-100%) -Granulation Quality [place] -Slough/Fibrin Yes -Necrosis Amt Small (1-33%) -Necrotic Tissue Type Adherent Slough -Structure Exposed N/A -Texture (Natacha-wound Skin Appearance) Assessed, Localized Edema ,Scarring -Moisture (Natacha-wound Skin Appearance) Assessed, Maceration -Color (Natacha-wound Skin Appearance) No Abnormality, Assessed -Temperature (Natacha-wound Skin No Abnormality Appearance) (Pt Warm) -Tenderness on Palpation (Natacha-wound No Skin Appearance) -Ulcer Cleansing Soap and Water -Foul Odor after Cleansing No -Anesthetic Used 4% Lidocaine Solution Lower Limb Edema Present Yes Right Calf (cm) 39.7 Right Ankle (cm) 22.8 Left Calf (cm) 39.7 Left Ankle (cm) 22.5 WC - Nurse 2 - General Ulcer CM Notes Start: 10/14/21 13:51 Freq: Status: Active Protocol: Activity Type Activity Date Activity User E-Sign Co-Sign Detail Recorded Client Recorded Date Recorded By Document 10/14/21 14:13 [id number] 10/14/21 14:18 Document 10/21/21 14:02 [id number] 10/21/21 14:08 Document 10/28/21 15:54 [id number] 10/28/21 16:06 Document 11/04/21 15:18 [id number] 11/04/21 15:20 10/14/21 10/21/21 10/28/21 14:13 14:02 15:54 Wound Center Nurse 2 19-right inferior plantar -Time 14:14 14:03 15:54 -Correct Patient Yes Yes Yes -Correct Side, Site, Position Yes Yes Yes -Correct Procedure Yes Yes Yes -Procedure Performed Yes Yes Yes -Type of Procedure Debridement Debridement Debridement -Clinical Debridement Subcutaneous Subcutaneous Subcutaneous -Tissue Removed Subcutaneous Subcutaneous Subcutaneous -Post Debridement (cm) - Length 1.8 2.8 2.4 -Post Debridement (cm) - Width 2.2 2.4 2.4 -Post Debridement (cm) - Depth 1.9 1.7 0.2 -Total Square (Post) (cm) 3.96 6.72 5.76 -Area of Debridement (cm) - Length 1.8 2.8 2.4 -Area of Debridement (cm) - Width 2.2 2.4 2.4 -Total Square (Area) (cm) 3.96 6.72 5.76 -Tunneling No No No -Undermining/Tunneling No No No -Circular Undermining No No No -Wound/Ulcer Outcome Not Healed Not Healed Not Healed -Ulcer Cleansing Rinsed/ Rinsed/ Rinsed/ Irrigated with Irrigated with Irrigated with Saline Saline Saline -Foul Odor after Cleansing No No No -Bioengineered Tissue No No No -Bleeding Controlled with Pressure Pressure Pressure -Offloading No No Yes -Type of Offloading Total Contact Total Contact Cast (TCC) - Cast (TCC) - Right ($) Right ($) -Treatment Response Procedure Procedure Procedure Tolerated Well Tolerated Well Tolerated Well -Debridement - Subq, 1st 20sq cm Yes No No #16 L Plantar foot -Time 14:15 14:03 15:55 -Correct Patient Yes Yes Yes -Correct Side, Site, Position Yes Yes Yes -Correct Procedure Yes Yes Yes -Procedure Performed Yes Yes Yes -Type of Procedure Debridement Debridement Debridement -Clinical Debridement Subcutaneous Subcutaneous Subcutaneous -Tissue Removed Subcutaneous Subcutaneous Subcutaneous -Post Debridement (cm) - Length 2.6 2.6 2.4 -Post Debridement (cm) - Width 2.2 3.0 2 -Post Debridement (cm) - Depth 1.0 0.4 0.5 -Total Square (Post) (cm) 5.72 7.80 4.8 -Area of Debridement (cm) - Length 2.6 2.6 2.4 -Area of Debridement (cm) - Width 2.2 3.0 2.0 -Total Square (Area) (cm) 5.72 0 4.80 -Tunneling No No No -Undermining/Tunneling No No No -Circular Undermining No No No -Wound/Ulcer Outcome Not Healed Not Healed Not Healed -Ulcer Cleansing Rinsed/ Rinsed/ Rinsed/ Irrigated with Irrigated with Irrigated with Saline Saline Saline -Foul Odor after Cleansing No No No -Bioengineered Tissue No No No -Bleeding Controlled with Pressure Pressure Pressure -Offloading No No Yes -Type of Offloading Camwalker -Treatment Response Procedure Procedure Procedure Tolerated Well Tolerated Well Tolerated Well -Debridement - Subq, 1st 20sq cm No Yes Yes Pain Scale: 0-10 Numeric Is Patient Pain Free? Yes Yes Yes 11/04/21 15:18 Wound Center Nurse 2 19-right inferior plantar -Time 15:18 -Correct Patient Yes -Correct Side, Site, Position Yes -Correct Procedure Yes -Procedure Performed Yes -Type of Procedure Debridement -Clinical Debridement Subcutaneous -Tissue Removed Subcutaneous -Post Debridement (cm) - Length 1.8 -Post Debridement (cm) - Width 2.1 -Post Debridement (cm) - Depth 0.1 -Total Square (Post) (cm) 3.78 -Area of Debridement (cm) - Length 1.8 -Area of Debridement (cm) - Width 2.1 -Total Square (Area) (cm) 3.78 -Tunneling No -Undermining/Tunneling No -Circular Undermining No -Wound/Ulcer Outcome Not Healed -Ulcer Cleansing Rinsed/ Irrigated with Saline -Foul Odor after Cleansing No -Bioengineered Tissue No -Bleeding Controlled with Pressure -Offloading Yes -Type of Offloading Total Contact Cast (TCC) - Right ($) -Treatment Response Procedure Tolerated Well -Debridement - Subq, 1st 20sq cm Yes #16 L Plantar foot -Time 15:20 -Correct Patient Yes -Correct Side, Site, Position Yes -Correct Procedure Yes -Procedure Performed Yes -Type of Procedure Debridement -Clinical Debridement Subcutaneous -Tissue Removed Subcutaneous -Post Debridement (cm) - Length 2.8 -Post Debridement (cm) - Width 2 -Post Debridement (cm) - Depth 0.3 -Total Square (Post) (cm) 5.6 -Area of Debridement (cm) - Length 2.8 -Area of Debridement (cm) - Width 2 -Total Square (Area) (cm) 5.6 -Tunneling No -Undermining/Tunneling No -Circular Undermining No -Wound/Ulcer Outcome Not Healed -Ulcer Cleansing Rinsed/ Irrigated with Saline -Foul Odor after Cleansing No -Bioengineered Tissue No -Bleeding Controlled with Pressure -Offloading Yes -Type of Offloading Camwalker -Treatment Response Procedure Tolerated Well -Debridement - Subq, 1st 20sq cm No Pain Scale: 0-10 Numeric Is Patient Pain Free? Yes WC - Nurse 3 - General Ulcer D/C NN Start: 10/14/21 13:51 Freq: Status: Active Protocol: Activity Type Activity Date Activity User E-Sign Co-Sign Detail Recorded Client Recorded Date Recorded By Document 10/14/21 14:20 AK [id number] 10/14/21 14:23 AK Document 10/21/21 14:15 AK [id number] 10/21/21 14:17 AK Document 10/28/21 16:07 JF [id number] 10/28/21 16:07 JF Document 11/04/21 16:03 RB [id number] 11/04/21 16:05 RB 10/14/21 10/21/21 10/28/21 14:20 14:15 16:07 Wound Care Nurse 3 19-right inferior plantar -Ulcer Cleansing Rinsed/ Rinsed/ Rinsed/ Irrigated with Irrigated with Irrigated with Saline Saline Saline -Foul Odor after Cleansing No No -Negative Pressure Wound Therapy N/A -Primary Dressing Applied Aquacel AG 4x4 Aquacel AG 4x4 Aquacel AG 4x4 -Other Dressing ABD kerlix -Primary Dressing Covered/Secured with Dry Gauze & Dry Gauze & Dry Gauze & Roll Gauze, Roll Gauze, Roll Gauze Secured with Secured with Tape Tape -Aquacel AG 4x4 1 1 1 #16 L Plantar foot -Ulcer Cleansing Rinsed/ Rinsed/ Rinsed/ Irrigated with Irrigated with Irrigated with Saline Saline Saline -Foul Odor after Cleansing No No No -Negative Pressure Wound Therapy N/A N/A -Primary Dressing Applied Aquacel AG 4x4 Aquacel AG 4x4 Aquacel AG 4x4 -Other Dressing ABD Kerlix - Right TCC -Primary Dressing Covered/Secured with Dry Gauze & Dry Gauze & Dry Gauze & Roll Gauze, Roll Gauze, Roll Gauze, Secured with Secured with Secured with Tape Tape Tape -Aquacel AG 4x4 0 0 0 Right -Lotion applied to leg before No compression wrap -Compression Wrap [place] Wrap Left -Lotion applied to leg before No No compression wrap -Compression Wrap [place] Wrap [place] Wrap -Other own tubi Treatment Response Pain Scale: 0-10 Numeric Is Patient Pain Free? Yes Yes WC - Visit Discharge Discharge Condition Stable Stable Stable Ambulatory Status Ambulatory Wheelchair Ambulatory, Wheelchair Transportation Private Auto Private Auto Medication Reconcilliation completed & No No Yes provided to patient/care provider Clinical Summary of Care Provided Yes Yes Yes Notes: 11/04/21 16:03 Wound Care Nurse 3 19-right inferior plantar -Ulcer Cleansing -Foul Odor after Cleansing -Negative Pressure Wound Therapy -Primary Dressing Applied Aquacel AG 4x4 -Other Dressing -Primary Dressing Covered/Secured with -Aquacel AG 4x4 1 #16 L Plantar foot -Ulcer Cleansing -Foul Odor after Cleansing -Negative Pressure Wound Therapy -Primary Dressing Applied -Other Dressing aquacel Ag -Primary Dressing Covered/Secured with Dry Gauze,Dry Gauze & Roll Gauze,Secured with Tape -Aquacel AG 4x4 Right -Lotion applied to leg before compression wrap -Compression Wrap Left -Lotion applied to leg before compression wrap -Compression Wrap -Other [place] Treatment Response Procedure Tolerated Well Pain Scale: 0-10 Numeric Is Patient Pain Free? Yes WC - Visit Discharge Discharge Condition Stable Ambulatory Status Wheelchair Transportation Private Auto Medication Reconcilliation completed & No provided to patient/care provider Clinical Summary of Care Provided Yes Notes: primary layer layer of TCC applied to RLE Assessment/Plan Assessment/Plan (1) Chronic ulcer of right foot with fat layer exposed: CODE(S): L97.512 - Non-pressure chronic 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 layer exposed (2) Chronic foot pain: CODE(S): M79.673 - Pain in unspecified foot; G89.29 - Other chronic pain QUALIFIERS: Laterality: unspecified laterality Qualified Code(s): M79.673 - Pain in unspecified foot; G89.29 - Other chronic pain (3) Delayed wound healing: CODE(S): T14.8XXD - Other injury of unspecified body region, subsequent encounter (4) Debility: CODE(S): R53.81 - Other malaise (5) Hyperglycemia due to type 2 diabetes mellitus: CODE(S): E11.65 - Type 2 diabetes mellitus with hyperglycemia QUALIFIERS: Diabetes mellitus intermediate manager insulin use: with penitentiary use Qualified Code(s): E11.65 - Type 2 diabetes mellitus with hyperglycemia; Z79.4 - care home (current) use of insulin (6) Charcot's joint of left foot: CODE(S): M14.672 - Charcot's joint, left ankle and foot (7) Charcot's joint of right foot: CODE(S): M14.671 - Charcot's joint, right ankle and foot (8) Ulcer of left foot with fat layer exposed: CODE(S): L97.522 - Non-pressure chronic ulcer of other part of left foot with fat layer exposed (9) Bacteremia: CODE(S): R78.81 - Bacteremia PLAN: Patient seen and examined. Debridement was performed as noted in the clinical nursing panel. Dressing: Change daily with Aquacel Ag, left. Aquacel Ag was also applied to the right foot and an additional total contact cast was applied will be left intact this next week. Wash: Antibacterial soap and water daily left Verbal consent was obtained to apply total contact cast to the right lower extremity. This was applied according to standard protocol in a rectus well- padded manner. She tolerated this well. A cast shoe was also provided. She was advised keep this clean, dry, and intact until follow-up next week. She is reassured no signs of local or systemic infection are noted today. To monitor. Patient is to remain strict nonweightbearing. She is noted to have a wheelchair. To continue. She had recent hospitalization for abnormal glucose levels and these notes were reviewed. I advised her to work with her care source territory account representative to obtain a glucometer at home to prevent further illness and hospitalizations. She was reassured there are no local or systemic signs of illness. It is noted she is already been undergoing a comprehensive wound healing plan and has delayed and nonhealing. She has had prior bone biopsies, wound culture, skin grafts, total contact cast, multiple hospital visits, surgeries, and intervention with infectious disease. Try to optimize nutrition by offering referral for nutrition patient declined. She has suspected adequate vascular perfusion for healing per her recent noninvasive vascular studies 09/01/2020 with triphasic waveforms noted. Patient's hemoglobin A1c was 13.1% on 12/29/2020. This was recently checked in June and was decreased to 9% range. Offloading strongly recommended. Optimal blood sugar control and increased protein intake also discussed. To continue nonweightbearing bilateral foot with use of wheelchair. Her care home facility placement is noted and she is doing well in this setting. Follow up in 1 to 2 weeks at the wound healing center. All questions were answered and she was advised to call with any further questions or concerns. This note was generated with [employer] dictation software. It may contain incorrect words, spelling, and punctuation that were not noted in checking the note before signing.
== END 2021-11-09 23:59 ==
LOC: WC 14:30
PROVIDERS: PCP Family Medicine; Referring Provider Podiatrist; Visit Provider Podiatrist
DX: E11.621 Type 2 diabetes mellitus with foot ulcer (principal); L97.412 Non-pressure chronic ulcer of right heel and midfoot with fat layer exposed; L97.422 Non-pressure chronic ulcer of left heel and midfoot with fat layer exposed; E11.65 Type 2 diabetes mellitus with hyperglycemia; E11.610 Type 2 diabetes mellitus with diabetic neuropathic arthropathy; Z79.4 Long term (current) use of insulin; G89.29 Other chronic pain; I10 Essential (primary) hypertension; E66.9 Obesity, unspecified; Z68.32 Body mass index [BMI] 32.0-32.9, adult; Z79.82 Long term (current) use of aspirin; Z79.02 Long term (current) use of antithrombotics/antiplatelets; Z79.899 Other long term (current) drug therapy; Z86.16 Personal history of COVID-19
CPT/HCPCS: 11042; 29445

== ENCOUNTER 2021-11-16 07:27 | Emergency (ER) | payer MEDICARE, MEDICAID, SELFPAY ==
[2018-09-21 13:23] VITALS: BMI 29.3
[2021-11-16 07:29] VITALS: BP 125/64; PULSE 83; RESP 16; TEMP 36.9; O2SAT 100; BMI 35.7
--- NOTE | 2021-11-16 07:36 | EKG12_ITS ---
Test Reason : Blood Pressure : / mmHG Vent. Rate : 083 BPM Atrial Rate : 083 BPM P-R Int : 148 ms QRS Dur : 092 ms QT Int : 400 ms P-R-T Axes : 032 013 114 degrees QTc Int : 470 ms Normal sinus rhythm Nonspecific T wave abnormality Prolonged QT Abnormal ECG Confirmed by ELEN DELVALLE, FELTON ([id number]), dictionary editor HARINI PHAM ([id number]) on 11/17/2021 11:38:08 AM Referred By: SUNDAY Confirmed By:FELTON MYRICK MD
--- NOTE | 2021-11-16 07:36 | RAD_ITS ---
STUDY: X-RAY CHEST REASON FOR EXAM: Female, 56 years old. Weakness TECHNIQUE: Single AP portable view of the chest. COMPARISON: Comparison is made with prior study dated 10/25/2021. FINDINGS: EKG electrodes are seen. The lungs are clear and expanded. There is no demonstrated pleural abnormality. There is borderline cardiomegaly. Normal mediastinum and elvie. Normal visualized pulmonary arteries. Normal visualized aortic arch and descending thoracic aorta. Normal visualized thoracic spine. Normal visualized ribs, clavicles, and shoulders. There is no demonstrated abnormality of the visualized soft tissue structures of the upper abdomen. RAD/Chest 1 View (Portable) IMPRESSION: Borderline cardiomegaly. Electronically Signed: Ronnie Saavedra MD at 8:29 EST ,
[2021-11-16 07:47] LABS: Absolute Lymphocyte Count 1.46 X10^3/uL (0.83-4.51); Basophil# 0.05 X10^3/uL; Basophil% 0.5 % (0-1); Eosinophils% 1.9 % (0-5); Hematocrit 29.8 % (37-47); Hemoglobin 9.8 g/dL (12.0-15.0); Lymphocyte # 1.46 X10^3/ul (0.83-4.51); Lymphocyte % 14.1 % (19-41); Mean Corp Hgb Conc 32.9 g/dL (32-36); Mean Corpuscular Hgb 29.5 pg (27.0-32.0); Mean Corpuscular Volume 89.8 fL (81-99); Monocyte% 5.8 % (0-10); NRBC Flagged by Analyzer 0 % (0-5); Neutrophil # 8.01 X10^3/uL (2.7-7.7); Neutrophil % 77.1 % (47-70); Platelet Count 313 K/mm3 (150-450); RBC Distribution Width CV 14.7 % (11.6-14.6); RBC Distribution Width SD 48.1 fl (35.1-43.9); Red Blood Count 3.32 M/mm3 (4.2-5.4); White Blood Count 10.4 K/mm3 (4.4-11.0)
--- NOTE | 2021-11-16 07:51 | EX.ED.DYSGE1 ---
HPI History of Present Illness Chief Complaint: Weakness Informant: patient Narrative Narrative: Patient is a 56-year-old female presenting with generalized weakness and feeling tired. Patient states her blood sugar was elevated in the 300s this morning so she called EMS. She had taken a dose of her insulin and when EMS arrived her blood sugar was 128. Initially her blood pressure was 90/40 however on recheck it was 120 systolic. Patient states she feels weak but would not give EMS any other information. She would not really communicate with them so they brought her to the emergency room for further evaluation. Patient notes that she nauseous and dizzy before taking her insulin. She currently denies these symptoms. She denies any pain at this time. She states that she has been having a hard time sleeping lately. She notes that she has had constipation but she has been passing gas. She does have chronic wounds of her lower extremities that she follows with Dr. Edgar for. Patient denies any acute change in this. She denies any recent fevers. She has no other complaints at this time . She states she last took her oxycodone last night to try and help her sleep. [facility] Medical History Acquired varus deformity of left foot Acquired varus deformity of right foot Amputation foot, bilat Anemia due to chronic illness Anxiety and depression Atherosclerosis of [place] coronary artery of [place] heart without angina pectoris Back pain, chronic Bilateral edema of lower extremity Charcot's joint of right foot Chronic renal insufficiency Chronic ulcer of left foot with fat layer exposed Chronic ulcer of right foot with necrosis of muscle COVID-19 (08/28/21) Delayed wound healing Diabetes Diabetic foot ulcer associated with type 2 diabetes mellitus Diabetic infection of left foot Diabetic polyneuropathy Diabetic ulcer of right ankle Elevated troponin Essential (primary) hypertension GERD (gastroesophageal reflux disease) Hemoglobin A1c greater than 9.0% HLD (hyperlipidemia) Hyperparathyroidism, secondary renal Hypertension Iron deficiency anemia Ischemic cardiomyopathy Myocardial infarct Non-compliance Non-smoker Normocytic anemia NSTEMI (non-ST elevated myocardial infarction) (09/20/18) Obesity (BMI 30.0-34.9) Osteomyelitis of left foot RLS (restless legs syndrome) Stage 4 chronic kidney disease TIA (transient ischemic attack) 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 Ulcer of left foot with fat layer exposed Ulcer of left foot with muscle involvement without evidence of necrosis Ulcer of right lower extremity with fat layer exposed Home Medications atorvastatin 80 mg tablet 80 mg PO QHS #90 tablet 11/30/19 [Rx Last Taken 07/05/21] pramipexole 1.5 mg PO BID 09/12/20 [History Last Taken 07/06/21] isosorbide mononitrate 30 mg PO DAILY 03/03/21 [History Last Taken 07/04/21] oxycodone 5 mg PO BID PRN 07/07/21 [History Last Taken 07/06/21] paroxetine HCl 20 mg PO QHS 07/07/21 [History Last Taken 07/06/21] benzonatate 100 mg PO TID PRN PRN 09/02/21 [History Last Taken Unknown] bupropion HCl 150 mg PO.IVFORM DAILY 09/02/21 [History Last Taken Unknown] cyclobenzaprine 5 mg PO QHS 09/02/21 [History Last Taken Unknown] furosemide 40 mg PO DAILY 09/02/21 [History Last Taken Unknown] carvedilol [Coreg] 6.25 mg PO BID #60 tab 09/08/21 [Rx Last Taken Unknown] magnesium oxide [MagOx] 400 mg PO DAILY #30 tab 09/08/21 [Rx Last Taken Unknown] Ted (with collagen) 1 packet PO BIDCM #0 ea 09/14/21 [Rx Last Taken Unknown] clopidogrel 75 mg PO DAILY 10/25/21 [History Last Taken Unknown] HySept 1 applic TOPICAL DAILY 10/27/21 [History Last Taken Unknown] acetaminophen [Tylenol] 650 mg PO Q6H PRN PRN #0 tab 10/27/21 [Rx Last Taken Unknown] aspirin 81 mg PO BREAKFAST #0 tab 10/27/21 [Rx Last Taken Unknown] Lantus Solostar U-100 Insulin 30 unit SUBCUT DAILY 11/16/21 [History Last Taken Unknown] hydroxyzine HCl 25 mg PO DAILY 11/16/21 [History Last Taken Unknown] insulin lispro [Humalog KwikPen Insulin] 15 unit SUBCUT TIDCM 11/16/21 [History Last Taken Unknown] Allergy/AdvReac Type Severity Reaction Status Date / Time oxycodone [From OxyContin] Allergy feels Verified 11/16/21 07:28 like I'm drowning Penicillins Allergy swelling Verified 11/16/21 07:28 in throat vancomycin Allergy Itching Verified 11/16/21 07:28 metronidazole AdvReac Nausea Verified 11/16/21 07:28 Family History Mother Diabetes CVA (cerebral vascular accident) Brother CAD (coronary artery disease) CABG X 3 Cancer testicular Diabetes Brother CAD (coronary artery disease) CABG X3 Diabetes Brother CAD (coronary artery disease) Stents Diabetes Sister CAD (coronary artery disease) CABG x 3 CVA (cerebral vascular accident) Diabetes Surgical History History of bilateral carpal tunnel release History of History of coronary artery stent placement (12/31/20) History of foot surgery History of rotator cuff surgery Social History household members: none Smoking Status: Never smoker alcohol intake: never substance use type: does not use caffeine: Yes Type: carbonated beverages Number of servings: 2 ROS ROS ED Constitutional Constitutional ED: Reports other Details: Tired, generalized weakness ; Denies chills or fever(s) Eyes Eyes: Denies change in vision ENT ENT ED: Denies ear pain or sore throat Cardiovascular Cardiovascular: Denies chest pain Respiratory/Chest Respiratory/Chest: Denies cough or dyspnea Gastrointestinal Gastrointestinal: Reports constipation and nausea; Denies abdominal pain or vomiting Genitourinary Genitourinary ED: Denies dysuria or hematuria Musculoskeletal Musculoskeletal: Denies arthralgias or myalgias Integumentary Denies rash Neurologic Neurologic: Reports weakness; Denies headache(s) or paresthesias Psychiatric Psychiatric: Denies anxiety or depression EXAM Physical Exam Const Vital Signs: 11/16/21 07:29 11/16/21 07:31 11/16/21 08:56 Temperature 98.4 F Temperature Source Oral Pulse Rate 83 95 Respiratory Rate 16 16 Respiratory Effort Normal Non-Labored Respiratory Pattern Normal Blood Pressure 125/64 H 133/75 H Blood Pressure Mean 84 94 Pulse Ox 100 100 Oxygen Delivery Method Room Air Room Air 11/16/21 10:01 11/16/21 13:05 Temperature Temperature Source Pulse Rate 89 81 Respiratory Rate 20 H 16 Respiratory Effort Respiratory Pattern Blood Pressure 145/87 H 147/84 H Blood Pressure Mean 106 Pulse Ox 98 98 Oxygen Delivery Method Room Air Positive well nourished and well developed Constitutional Narrative: Patient resting in bed. She is slow to answer questions but when directly prompted she will answer questions appropriately. General Appearance ED: well developed HEENT Reports moist mucous membranes Negative for trauma Eyes PERRL and EOMs intact bilaterally Neck no lymphadenopathy and supple Neck Narrative: Normal range of motion Chest Wall inspection of chest normal Resp normal respiratory effort and clear to auscultation bilaterally Cardio regular rate, regular rhythm and no murmurs GI normal to inspection, nondistended, normoactive bowel sounds and non-tender Palpation: soft Extremity normal to inspection Extremity Narrative: Patient has cast on her right lower extremity. She has chronic wound that is bandaged on her left lower extremity General Extremety ED: Negative for tenderness Neuro oriented x3 Neuro Narrative: No focal deficits appreciated. Able to raise arms equally. Sensorium / Orientation: alert Motor Exam: general weakness Psych mental status grossly normal Psych Narrative: Patient has a poverty of speech and is slightly withdrawn Skin no rashes or lesions noted Skin Narrative: Chronic wound to left foot MDM MDM MDM Narrative Medical decision making narrative: Patient is evaluated for generalized weakness and fatigue. Patient did give herself 10 units of rapid acting insulin prior to coming in. She becomes hypoglycemic in the emergency room on rechecks of her finger blood sugar. Glucose on her BMP is 74. Patient is given food and juice with improvement of her hypoglycemia. Lab work is unremarkable. She is of chronic changes such as hemoglobin of 9.8 which is actually slightly improved since last month. She has CKD which is also stable. Her troponin appears to also be chronically elevated and is 68 and then 58 on repeat. She has nonspecific EKG changes that do not appear to be acute. Patient has improvement of symptoms while in the emergency room. No obvious source of infection. No leukocytosis. I suspect patient gave herself too much fast acting insulin and this caused her presentation today. She is counseled to be careful with her insulin dosing. She is encouraged to follow-up with her primary care doctor. She be discharged home. She is given return precautions. Lab Data Attestation: I reviewed the patient's lab results. Labs: Laboratory Results - last 24 hr 0211/16/21 11/16/21 07:40 07:40 07:57 WBC 10.4 RBC 3.32 L Hgb 9.8 L Hct 29.8 L MCV 89.8 MCH 29.5 MCHC 32.9 RDW Std Deviation 48.1 H RDW Coeff of F[place] 14.7 H Plt Count 313 MPV 11.0 Immature Gran % (Auto) 0.600 Neut % (Auto) 77.1 H Lymph % (Auto) 14.1 L [place] % (Auto) 5.8 Eos % (Auto) 1.9 Baso % (Auto) 0.5 Absolute Neuts (auto) 8.0 H Absolute Lymphs (auto) 1.46 Nucleated RBC % 0 Sodium 141 Potassium 4.0 Chloride 114 H Carbon Dioxide 21.0 Anion Gap 6 BUN 40 H Creatinine 2.09 H Estim Creat Clear Calc 25.95 Est GFR (MDRD) Af Amer 32 L Est GFR (MDRD) Non-Af 26 L BUN/Creatinine Ratio 19.1 Glucose 74 Calcium 8.1 L Total Bilirubin 0.20 AST 21 ALT 44 Alkaline Phosphatase 126 H Troponin I High Sens 68 H Total Protein 6.3 L Albumin 2.3 L Globulin 4.0 Albumin/Globulin Ratio 0.6 L Lipase 226 Urine Color Urine Clarity Urine pH Ur Specific [place] Urine Protein Urine Glucose (UA) Urine Ketones Urine Occult Blood Urine Nitrite Urine Bilirubin Urine Urobilinogen Ur Leukocyte Esterase Urine RBC Urine WBC Ur Squamous Epith Cells Urine Bacteria Urine Mucus POC Glucose 57 L 11/16/21 11/16/21 11/16/21 08:24 08:52 09:59 WBC RBC Hgb Hct MCV MCH MCHC RDW Std Deviation RDW Coeff of [place] Plt Count MPV Immature Gran % (Auto) Neut % (Auto) Lymph % (Auto) [place] % (Auto) Eos % (Auto) Baso % (Auto) Absolute Neuts (auto) Absolute Lymphs (auto) Nucleated RBC % Sodium Potassium Chloride Carbon Dioxide Anion Gap BUN Creatinine Estim Creat Clear Calc Est GFR (MDRD) Af Amer Est GFR (MDRD) Non-Af BUN/Creatinine Ratio Glucose Calcium Total Bilirubin AST ALT Alkaline Phosphatase Troponin I High Sens Total Protein Albumin Globulin Albumin/Globulin Ratio Lipase Urine Color Urine Clarity Urine pH Ur Specific [place] Urine Protein Urine Glucose (UA) Urine Ketones Urine Occult Blood Urine Nitrite Urine Bilirubin Urine Urobilinogen Ur Leukocyte Esterase Urine RBC Urine WBC Ur Squamous Epith Cells Urine Bacteria Urine Mucus POC Glucose 77 82 96 11/16/21 11/16/21 11/16/21 10:00 11:20 11:40 WBC RBC Hgb Hct MCV MCH MCHC RDW Std Deviation RDW Coeff of [place] Plt Count MPV Immature Gran % (Auto) Neut % (Auto) Lymph % (Auto) [place] % (Auto) Eos % (Auto) Baso % (Auto) Absolute Neuts (auto) Absolute Lymphs (auto) Nucleated RBC % Sodium Potassium Chloride Carbon Dioxide Anion Gap BUN Creatinine Estim Creat Clear Calc Est GFR (MDRD) Af Amer Est GFR (MDRD) Non-Af BUN/Creatinine Ratio Glucose Calcium Total Bilirubin AST ALT Alkaline Phosphatase Troponin I High Sens 58 H Total Protein Albumin Globulin Albumin/Globulin Ratio Lipase Urine Color Yellow Urine Clarity Sl. Cloudy Urine pH 5.0 Ur Specific [place] 1.020 Urine Protein 500 H Urine Glucose (UA) 100 H Urine Ketones Negative Urine Occult Blood 50 H Urine Nitrite Negative Urine Bilirubin Negative Urine Urobilinogen Normal Ur Leukocyte Esterase Negative Urine RBC 0-5 SEEN Urine WBC 0 SEEN Ur Squamous Epith Cells 0-5 SEEN Urine Bacteria 1+ Urine Mucus 0 SEEN POC Glucose 125 H Radiography Chest X-Ray - ED: 1 View, Read by ED Physician, Read by Radiologist, No Acute Disease and Cardiomegaly Diagnostic Testing: Clinical Impression(s) from Imaging Studies Chest X-Ray 11/16/21 07:36 IMPRESSION: Borderline cardiomegaly. Electronically Signed: Ronnie Saavedra MD at 8:29 EST , Rhythm Strip Rhythm Strip: Sinus Rhythm Rate: 83 Ectopy: None EKG Initial EKG: Attestation: I personally reviewed and interpreted this EKG as follows: Interpretation: Sinus Rhythm Comments: Normal sinus rhythm at a rate of 83 Normal axis TX interval 148 QRS [address] segments with nonspecific T wave changes and T wave inversions in 1, aVL, V5 to V6 as well as II Discharge Plan Triage Chief Complaint: Weakness ED Provider: Maria Eugenia Ann Dx/Rx/DC Orders Clinical Impression: Hypoglycemia, Weakness Instructions: ED Hypoglycemia Oral Diabetic ..., ED Weakness (Uncertain Cause) Prescriptions: No Action atorvastatin 80 mg tablet 80 mg PO QHS Qty: 90 RF: 3 pramipexole 1 MG tablet 1.5 mg PO BID RF: 0 isosorbide mononitrate 30 mg tablet extended release 24 hr 30 mg PO DAILY RF: 0 paroxetine HCl 20 mg tablet 20 mg PO QHS RF: 0 oxycodone 5 mg tablet 5 mg PO BID PRN (Reason: Pain) RF: 0 benzonatate 100 mg Capsule 100 mg PO TID PRN PRN (Reason: Cough) RF: 0 cyclobenzaprine 5 mg Tablet 5 mg PO QHS RF: 0 bupropion HCl 150 mg PO.IVFORM DAILY RF: 0 furosemide 40 mg Tablet 40 mg PO DAILY RF: 0 carvedilol [Coreg] 6.25 mg tablet 6.25 mg PO BID Qty: 60 RF: 0 magnesium oxide [MagOx] 400 mg (241.3 mg magnesium) tablet 400 mg PO DAILY Qty: 30 RF: 0 Ted (with collagen) 7-7-1.5 gram Powder In Packet 1 packet PO BIDCM Qty: 0 RF: 0 clopidogrel 75 MG tablet 75 mg PO DAILY RF: 0 acetaminophen [Tylenol] 325 mg Tablet 650 mg PO Q6H PRN PRN (Reason: Pain Score 1-10/Temp > 100.7 F) Qty: 0 RF: 0 aspirin 81 mg Tablet,Delayed Release (Dr/Ec) 81 mg PO BREAKFAST Qty: 0 RF: 0 HySept 0.25 % solution 1 applic topical DAILY RF: 0 hydroxyzine HCl 25 mg Tablet 25 mg PO DAILY RF: 0 insulin lispro [Humalog KwikPen Insulin] 100 unit/mL insulin pen 15 unit subcut TIDCM RF: 0 Lantus Solostar U-100 Insulin 100 unit/mL (3 mL) insulin pen 30 unit SUBCUT DAILY RF: 0 Primary Care Provider: Raúl Eric Referrals: Raúl Eric MD [Primary Care Provider] - Disposition Disposition: Home, Self Care Discharge Date/Time: 11/16/21 13:06
[2021-11-16 08:05] LABS: ALB/GLOB Ratio 0.6 RATIO (0.9-2.4); AST(SGOT) 21 U/L (15-37); Alanine Aminotransfer ALT/SGPT 44 U/L (13-56); Albumin, Serum 2.3 g/dL (3.2-5.0); Alkaline Phosphatase 126 U/L (45-117); Anion Gap 6 (5-15); BUN 40 mg/dL (7-18); BUN/Creat Ratio 19.1 RATIO (10-20); Calcium,Total 8.1 mg/dL (8.5-10.1); Chloride 114 mmol/L (98-107); Creatinine, Serum 2.09 mg/dL (0.55-1.02); EST Glomerular Filtration Rate 26 mL/min (>60); Est Glom Filt Rate - Afr Amer 32 mL/min (>60); Estimated Creatinine Clearance 25.95 ml/min; Glucose 74 mg/dL (74-106); Lipase 226 U/L (73-393); Protein, Total 6.3 g/dL (6.4-8.2); Sodium Level 141 mmol/L (136-145); Troponin-I HS 68 pg/mL (3.0-54.0)
[2021-11-16 08:56] VITALS: BP 133/75; PULSE 95; RESP 16; O2SAT 100
[2021-11-16 08:56] LABS: Bedside Glucose 57 mg/dL (70-110)
[2021-11-16 08:56] LABS: Bedside Glucose 77 mg/dL (70-110)
[2021-11-16 08:56] LABS: Bedside Glucose 82 mg/dL (70-110)
[2021-11-16 10:01] VITALS: BP 145/87; PULSE 89; RESP 20; O2SAT 98
[2021-11-16 10:09] LABS: Mucous, Urine 0 SEEN /hpf (<or=2+); White Blood Cells 0 SEEN /hpf (0-5)
[2021-11-16 10:15] LABS: Color, Urine Yellow (Yellow); Glucose, Dipstick 100 mg/dl (Normal); Ketone-Dipstick Negative (Negative); Leukocyte Esterase-Dipstick Negative /ul (Negative); Nitrite-Dipstick Negative (Negative); Occult Blood-Urine 50 /ul (Negative); Protein-Dipstick 500 mg/dl (Negative); Urine Bilirubin Dipstick Negative (Negative); Urine Clarity Sl. Cloudy (Clear); Urine Urobilinogen Normal (Normal)
[2021-11-16 10:21] LABS: Bedside Glucose 96 mg/dL (70-110)
[2021-11-16 10:23] LABS: Bacteria 1+ /hpf (None Seen); Red Blood Cells-Urine 0-5 SEEN /hpf (0-5); Squamous Epithelial Cells - UA 0-5 SEEN /hpf (5-10)
[2021-11-16 11:46] LABS: Bedside Glucose 125 mg/dL (70-110)
[2021-11-16 11:58] LABS: Troponin-I HS 58 pg/mL (3.0-54.0)
[2021-11-16 13:05] VITALS: BP 147/84; PULSE 81; RESP 16; O2SAT 98
--- NOTE | 2021-11-17 11:35 | CASEMGMT ---
KELSIE IRELAND ED follow-up: Date of ER visit: 11/16/2021 Presenting ER complaint: weakness, feeling tired, elevated blood sugar RN BEKA placed call to patient's telephone number listed on demographics, patient answered. Patient reports FSBS 300 today. States she took 10 units of insulin (versus the ordered 15 units) for fear of having another hypoglycemic episode as she did yesterday in ER. When KELSIE IRELAND questioned what FSBS is following insulin administration, patient states she has not rechecked FSBS. Patient instructed on importance of rechecking FSBS following intervention. Patient reports [facility] nurse visiting today at 1:00 p.m. and aide visiting today to assist with shower (aide visits 1-2x/week). Patient encouraged to call PCP to schedule follow-up appointment. Patient states, I was just there because I just got out of the hospital. KELSIE IRELAND informed patient she should follow-up regarding blood glucose variations and keep log of FSBS to take with her to appointment in case of needed medication adjustments. LISA IRELAND confirmed that patient has available transport and patient states she uses the [facility] van. Patient denies pain and states eating and drinking well. Denies further questions or concerns. KELSIE Bear CM
== END 2021-11-16 13:06 | disposition home or self-care (01) ==
PROVIDERS: Emergency Provider Emergency Medicine; PCP Family Medicine; Visit Provider Emergency Medicine
DX: E11.649 Type 2 diabetes mellitus with hypoglycemia without coma (principal); E11.42 Type 2 diabetes mellitus with diabetic polyneuropathy; E11.22 Type 2 diabetes mellitus with diabetic chronic kidney disease; N18.4 Chronic kidney disease, stage 4 (severe); Z79.4 Long term (current) use of insulin; R53.1 Weakness; I12.9 Hypertensive chronic kidney disease with stage 1 through stage 4 chronic kidney disease, or unspecified chronic kidney disease; E78.5 Hyperlipidemia, unspecified; I25.5 Ischemic cardiomyopathy; I25.10 Atherosclerotic heart disease of native coronary artery without angina pectoris; F32.A Depression, unspecified; F41.9 Anxiety disorder, unspecified; Z86.16 Personal history of COVID-19; K21.9 Gastro-esophageal reflux disease without esophagitis; D50.9 Iron deficiency anemia, unspecified; I25.2 Old myocardial infarction; Z79.82 Long term (current) use of aspirin; Z79.02 Long term (current) use of antithrombotics/antiplatelets; Z79.899 Other long term (current) drug therapy; Z86.73 Personal history of transient ischemic attack (TIA), and cerebral infarction without residual deficits; Z95.5 Presence of coronary angioplasty implant and graft
CPT/HCPCS: 71045; 80053; 81001; 82962; 83690; 84484; 85025; 93005; 99285; A4216

== ENCOUNTER 2021-12-02 14:30 | Outpatient (RCR) | payer MEDICARE, MEDICAID, SELFPAY ==
[2018-09-21 13:23] VITALS: BMI 29.3
[2021-11-10 00:22] VITALS: BP 169/93; PULSE 106; RESP 18; TEMP 35.7; BMI 32.3
[2021-11-11 14:33] VITALS: BP 169/79; PULSE 98; RESP 16; TEMP 35.8; BMI 32.3
--- NOTE | 2021-11-11 15:41 | PCM.WC.PN ---
History of Present Illness Date of Service: 11/11/21 Chief Complaint: right foot ulcer left foot ulcer History of Wound: Patient is a 56-year-old female who presents to the clinic for bilateral foot ulcers. She denies odor or redness. She resides at home now. She denies fever, chill, nausea, foot pain, redness, odor. She has some vomiting today and denies other illness. She is not sure if she ate something questionable. She tolerated total contact cast well this past week. She is amendable to have another application today. Progress of Wound: improving bilateral Objective Data Objective Data Vital Signs: Vital Signs Temp Pulse Resp BP 96.5 F L 98 16 169/79 H 11/11/21 14:33 11/11/21 14:33 11/11/21 14:33 11/11/21 14:33 Oxygen Delivery Method Room Air Weight: 91.138 kg Body Mass Index (BMI) 32.3 Physical Exam Narrative General Skin Exam: atrophy and dry skin; Negative for ecchymosis, no erythema, no eschar, and no odor. no purulence, no streaking Plantar left foot ulceration: No exposed tendon or probe to bone. No maceration noted. There is no erythema or edema or malodor or purulence or other suggestion signs of infection. Some slight serosanguineous drainage noted. Ulcer healing. Tissues are healthy and viable - ulcer is down to subcutaneous tissue. Plantar right foot ulceration. No exposed tendon or probe to bone; notable reduced ulcer depth. No maceration noted. There is no erythema or edema or malodor or purulence or other suggestion signs of infection. Some slight serosanguineous drainage noted. 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 Chronic charcot foot deformity noted bilaterally, no acute deformity. No gross laxity or crepitus with manipulation. Negative calf tenderness bilateral, no evidence of DVT bilateral. CFT < 2 seconds to all toes with no evidence of acute ischemia to foot bilateral. Chronic peripheral neuropathy bilateral foot. Debridement Note Debridement Note Wound debrided: plantar right foot, plantar left foot Wound Grade/Stage: 2,1 Type of Debridement: Excisional debridement Anesthesia Used: 4% Lidocaine Solution Depth: in the subcutaneous layer Percentage of wound debrided: 100 Instrument Used: #15 blade Tissue Removed: fibrous, devitalized subcutaneous, biofilm, slough Severity: Fat Layer Exposed Amount of bleeding with debridement: Mild Bleeding Controlled with: Pressure Patient tolerated procedure: Patient tolerated procedure well Post-Debridement Measurements and Additional Note: Post-Debridement Measurements/Treatment - Nurse 1 - General Ulcer Assessment Start: 11/11/21 14:33 Freq: Status: Active Protocol: SHANICE Activity Type Activity Date Activity User E-Sign Co-Sign Detail Recorded Client Recorded Date Recorded By Document 11/11/21 14:33 [facility] [id number] 11/11/21 14:41 [facility] 11/11/21 14:33 WC - Today's Visit Information Type of service Follow-up Visit (Physician/STRAW [facility]AT BRUSHER ) Arrival Mode Wheelchair Transfer Assistance Transfer Board Patient Identification Verified (Name & Yes ) Height and Weight Body Mass Index (BMI) 32.3 BMI Classification Obese Vital Signs Temperature (97.8 F-99.1 F) 96.5 F L Temperature Source Temporal Pulse Rate (60-100) 98 Pulse Location Monitor Respiratory Rate (12-18) 16 Respiratory rate source Observation Oxygen Delivery Method Room Air Blood Pressure (90/60-120/80) 169/79 H Blood Pressure Mean (mm Hg) 109 Source Monitor Position Sitting Blood Pressure Location Left Forearm History Since Last Visit- (Skip if this is Patient's initial visit) Have you changed medications since your No last visit? Any new allergies or adverse reactions No Had a fall/change in ADL's that may No increase risk of falls Signs or symptoms of abuse and/or No neglect since last visit Have you been in the hospital since your No last visit? Has dressing in place as prescribed Yes Has compression in place as prescribed Yes Has offloadiing in place as prescribed Yes Experienced any changes in pain level or No management Left Footwear Removable Cast Walker/Walking Boot Right Footwear Total Contact Cast Pain Scale: 0-10 Numeric Is Patient Pain Free? Yes - Nurse 1 - General Ulcer Measurement Start: 11/11/21 14:33 Freq: Status: Active Protocol: Activity Type Activity Date Activity User E-Sign Co-Sign Detail Recorded Client Recorded Date Recorded By Document 11/11/21 14:33 [facility] [id number] 11/11/21 14:41 [facility] 11/11/21 14:33 Wound Center Nurse 1 19-right inferior plantar -Combined with other wound No -Current Size (cm) - Length 1.6 -Current Size (cm) - Width 1.3 -Current Size (cm) - Depth 0.1 -Total Square Cm 2.08 -Epithelialization Medium 34-66% -Tunneling No -Undermining/Tunneling No -Circular Undermining No -Exudate Amt Medium -Exudate Type Serosanguineous -Wound Margin Distinct, Outline Attached -Granulation Amt Large (67-100%) -Granulation Quality Red -Slough/Fibrin No -Necrosis Amt None Present (0 %) -Texture (Natacha-wound Skin Appearance) Assessed,Callus ,Scarring -Moisture (Natacha-wound Skin Appearance) Assessed -Color (Natacha-wound Skin Appearance) Assessed -Temperature (Natacha-wound Skin No Abnormality Appearance) (Pt Warm) -Tenderness on Palpation (Natacha-wound No Skin Appearance) -Ulcer Cleansing Soap and Water -Foul Odor after Cleansing No -Anesthetic Used 4% Lidocaine Solution #16 L Plantar foot -Combined with other wound No -Current Size (cm) - Length 2.8 -Current Size (cm) - Width 1.8 -Current Size (cm) - Depth 1.3 -Total Square Cm 5.04 -Photo Taken No -Epithelialization Small 1-33% -Tunneling No -Undermining/Tunneling Yes -Undermining/Tunneling Starts (O'clock 10 ) -Undermining/Tunneling Ends (O'clock) 11 -Maximum Distance (cm) 0.2 -Circular Undermining No -Exudate Amt Medium -Exudate Type Serosanguineous -Wound Margin Distinct, Outline Attached -Granulation Amt Medium (34-66%) -Granulation Quality Pale,Red -Slough/Fibrin Yes -Necrosis Amt Small (1-33%) -Necrotic Tissue Type Adherent Slough -Texture (Natacha-wound Skin Appearance) Assessed, Scarring -Moisture (Natacha-wound Skin Appearance) Assessed -Color (Natacha-wound Skin Appearance) Assessed -Temperature (Natacha-wound Skin No Abnormality Appearance) (Pt Warm) -Tenderness on Palpation (Natacha-wound No Skin Appearance) -Ulcer Cleansing Soap and Water -Foul Odor after Cleansing No -Anesthetic Used 4% Lidocaine Solution WC - Nurse 2 - General Ulcer CM Notes Start: 11/11/21 14:33 Freq: Status: Active Protocol: Activity Type Activity Date Activity User E-Sign Co-Sign Detail Recorded Client Recorded Date Recorded By Document 11/11/21 14:50 LISSY [id number] 11/11/21 14:53 LISSY 11/11/21 14:50 Wound Center Nurse 2 19-right inferior plantar -Time 14:50 -Correct Patient Yes -Correct Side, Site, Position Yes -Correct Procedure Yes -Procedure Performed Yes -Type of Procedure Debridement -Clinical Debridement Subcutaneous -Tissue Removed Subcutaneous -Post Debridement (cm) - Length 1.6 -Post Debridement (cm) - Width 1.4 -Post Debridement (cm) - Depth 0.1 -Total Square (Post) (cm) 2.24 -Area of Debridement (cm) - Length 1.6 -Area of Debridement (cm) - Width 1.4 -Total Square (Area) (cm) 2.24 -Tunneling No -Undermining/Tunneling No -Circular Undermining No -Wound/Ulcer Outcome Not Healed -Ulcer Cleansing Rinsed/ Irrigated with Saline -Foul Odor after Cleansing No -Bioengineered Tissue No -Bleeding Controlled with Pressure -Offloading Yes -Type of Offloading Total Contact Cast (TCC) - Right ($) -Treatment Response Procedure Tolerated Well -Debridement - Subq, 1st 20sq cm Yes #16 L Plantar foot -Time 14:50 -Correct Patient Yes -Correct Side, Site, Position Yes -Correct Procedure Yes -Procedure Performed Yes -Type of Procedure Debridement -Clinical Debridement Subcutaneous -Tissue Removed Subcutaneous -Post Debridement (cm) - Length 2.8 -Post Debridement (cm) - Width 1.9 -Post Debridement (cm) - Depth 1.3 -Total Square (Post) (cm) 5.32 -Area of Debridement (cm) - Length 2.8 -Area of Debridement (cm) - Width 1.9 -Total Square (Area) (cm) 5.32 -Tunneling No -Undermining/Tunneling No -Circular Undermining No -Wound/Ulcer Outcome Not Healed -Ulcer Cleansing Rinsed/ Irrigated with Saline -Foul Odor after Cleansing No -Bioengineered Tissue No -Bleeding Controlled with Pressure -Offloading Yes -Type of Offloading Camwalker -Treatment Response Procedure Tolerated Well -Debridement - Subq, 1st 20sq cm No Pain Scale: 0-10 Numeric Is Patient Pain Free? Yes WC - Nurse 3 - General Ulcer D/C NN Start: 11/11/21 14:33 Freq: Status: Active Protocol: Activity Type Activity Date Activity User E-Sign Co-Sign Detail Recorded Client Recorded Date Recorded By Document 11/11/21 14:57 DL [id number] 11/11/21 15:01 DL 11/11/21 14:57 Wound Care Nurse 3 19-right inferior plantar -Ulcer Cleansing Soap and Water -Foul Odor after Cleansing No -Primary Dressing Applied Aquacel AG 4x4 -Other Covering TCC Boot -Aquacel AG 4x4 1 #16 L Plantar foot -Other Dressing aquacel AG -Primary Dressing Covered/Secured with Dry Gauze & Roll Gauze, Secured with Tape -Other Covering [place] Left -Compression Wrap [place] Wrap Treatment Response Procedure Tolerated Well Pain Scale: 0-10 Numeric Is Patient Pain Free? Yes WC - Visit Discharge Discharge Condition Stable Ambulatory Status Wheelchair Facility Type Home Health Orders Sent Yes Assessment/Plan Assessment/Plan (1) Chronic ulcer of right foot with fat layer exposed: CODE(S): L97.512 - Non-pressure chronic 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 layer exposed (2) Chronic foot pain: CODE(S): M79.673 - Pain in unspecified foot; G89.29 - Other chronic pain QUALIFIERS: Laterality: unspecified laterality Qualified Code(s): M79.673 - Pain in unspecified foot; G89.29 - Other chronic pain (3) Delayed wound healing: CODE(S): T14.8XXD - Other injury of unspecified body region, subsequent encounter (4) Debility: CODE(S): R53.81 - Other malaise (5) Hyperglycemia due to type 2 diabetes mellitus: CODE(S): E11.65 - Type 2 diabetes mellitus with hyperglycemia QUALIFIERS: Diabetes mellitus longterm insulin use: with longterm use Qualified Code(s): E11.65 - Type 2 diabetes mellitus with hyperglycemia; 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 Debridement was performed as noted in the clinical nursing panel. Dressing: Change daily with Aquacel Ag, left. Aquacel Ag was also applied to the right foot and an additional total contact cast was applied will remain intact this next week. Wash: Antibacterial soap and water daily left Verbal consent was obtained to apply total contact cast to the right lower extremity. This was applied according to standard protocol in a rectus well-padded manner. She tolerated this well. She was advised keep this clean, dry, and intact until follow-up next week. She is reassured no signs of local or systemic infection are noted today. To monitor. Patient is to remain strict nonweightbearing. She is noted to have a wheelchair. To continue. She had recent hospitalization for abnormal glucose levels and these notes were reviewed. I advised her to work with her care source career representative to obtain a glucometer at home to prevent further illness and hospitalizations. She was reassured there are no local or systemic signs of illness. It is noted she is already been undergoing a comprehensive wound healing plan and has delayed and nonhealing. She has had prior bone biopsies, wound culture, skin grafts, total contact cast, multiple hospital visits, surgeries, and intervention with infectious disease. Try to optimize nutrition by offering referral for nutrition patient declined. She has suspected adequate vascular perfusion for healing per her recent noninvasive vascular studies 09/01/2020 with triphasic waveforms noted. Patient's hemoglobin A1c was 13.1% on 12/29/2020. This was recently checked in June and was decreased to 9% range. Offloading strongly recommended. Optimal blood sugar control and increased protein intake also discussed. To continue nonweightbearing bilateral foot with use of wheelchair. Her alf facility placement is noted and she is doing well in this setting. Follow up in 1 to 2 weeks at the wound healing center. All questions were answered and she was advised to call with any further questions or concerns. This note was generated with [employer] software. It may contain incorrect words, spelling, and punctuation that were not noted in checking the note before signing.
[2021-11-20 14:56] VITALS: BP 152/88; PULSE 95; RESP 16; TEMP 36.2; BMI 32.3
--- NOTE | 2021-11-20 16:43 | PN.PCM_ITS ---
History of Present Illness Date of Service: 11/20/21 Chief Complaint: right foot ulcer left foot ulcer History of Wound: Patient is a 56-year-old female who presents to the clinic for bilateral foot ulcers. She denies odor or redness. She denies fever, chill, nausea, foot pain, redness, odor. It is noted she was admitted last week due to hypoglycemia and is since stabilized. She tolerated total contact cast well this past week. Nursing staff informed me that there was a crack in the right total contact cast and the patient admits she often walks around at home without the cast boot in place. She is amendable to have another application today if needed. She would also like to review her left CAM Walker offloading pad to make sure it is still lined up properly. Progress of Wound: improving bilateral Objective Data Objective Data Vital Signs: Vital Signs Temp Pulse Resp BP 97.2 F L 95 16 152/88 H 11/20/21 14:56 11/20/21 14:56 11/20/21 14:56 11/20/21 14:56 Oxygen Delivery Method Room Air Weight: 91.138 kg Body Mass Index (BMI) 32.3 Physical Exam Narrative General Skin Exam: atrophy and dry skin; Negative for ecchymosis, no erythema, no eschar, and no odor. no purulence, no streaking Plantar left foot ulceration: No exposed tendon or probe to bone. No maceration noted. There is no erythema or edema or malodor or purulence or other suggestion signs of infection. Some slight serosanguineous drainage noted. Ulcer healing. Tissues are healthy and viable - ulcer is down to subcutaneous tissue. Plantar right foot ulceration. No exposed tendon or probe to bone; notable reduced ulcer depth. No maceration noted. There is no erythema or edema or malodor or purulence or other suggestion signs of infection. Some slight serosanguineous drainage noted. Tissues are healthy and viable . 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 Chronic charcot foot deformity noted bilaterally, no acute deformity. No gross laxity or crepitus with manipulation. Negative calf tenderness bilateral, no evidence of DVT bilateral. CFT < 2 seconds to all toes with no evidence of acute ischemia to foot bilateral. Chronic peripheral neuropathy bilateral foot. Debridement Note Debridement Note Wound debrided: plantar right foot, plantar left foot Wound Grade/Stage: 2,1 Type of Debridement: Excisional debridement Anesthesia Used: 4% Lidocaine Solution Depth: in the subcutaneous layer Percentage of wound debrided: 100 Instrument Used: #15 blade Tissue Removed: fibrous, devitalized subcutaneous, biofilm, slough Severity: Fat Layer Exposed Amount of bleeding with debridement: Mild Bleeding Controlled with: Pressure Patient tolerated procedure: Patient tolerated procedure well Post-Debridement Measurements and Additional Note: Post-Debridement Measurements/Treatment - Nurse 1 - General Ulcer Assessment Start: 11/11/21 14:33 Freq: Status: Active Protocol: [place] Activity Type Activity Date Activity User E-Sign Co-Sign Detail Recorded Client Recorded Date Recorded By Document 11/11/21 14:33 [facility] [id number] 11/11/21 14:41 [facility] Document 11/20/21 14:56 [facility] [id number] 11/20/21 15:15 [facility] 11/11/21 11/20/21 14:33 14:56 - Today's Visit Information Type of service Follow-up Visit Follow-up Visit (Physician/REGIONAL PROPERTY MANAGER (Physician/REGIONAL PROPERTY MANAGER ) ) Arrival Mode Wheelchair Wheelchair Transfer Assistance Transfer Board Other Transfer Assist (Other) ASSIST X1 Patient Identification Verified (Name & Yes Yes ) Height and Weight Body Mass Index (BMI) 32.3 32.3 BMI Classification Obese Obese Vital Signs Temperature (97.8 F-99.1 F) 96.5 F L 97.2 F L Temperature Source Temporal Temporal Pulse Rate (60-100) 98 95 Pulse Location Monitor Monitor Respiratory Rate (12-18) 16 16 Respiratory rate source Observation Observation Oxygen Delivery Method Room Air Room Air Blood Pressure (90/60-120/80) 169/79 H 152/88 H Blood Pressure Mean (mm Hg) 109 109 Source Monitor Monitor Position Sitting Sitting Blood Pressure Location Left Forearm Left Arm History Since Last Visit- (Skip if this is Patient's initial visit) Have you changed medications since your No No last visit? Any new allergies or adverse reactions No No Had a fall/change in ADL's that may No No increase risk of falls Signs or symptoms of abuse and/or No No neglect since last visit Have you been in the hospital since your No Yes last visit? Has dressing in place as prescribed Yes Yes Has compression in place as prescribed Yes Yes Has offloadiing in place as prescribed Yes Yes Experienced any changes in pain level or No No management Left Footwear Removable Cast Removable Cast Walker/Walking Walker/Walking Boot Boot Right Footwear Total Contact Total Contact Cast Cast Pain Scale: 0-10 Numeric Is Patient Pain Free? Yes Yes WC - Nurse 1 - General Ulcer Measurement Start: 11/11/21 14:33 Freq: Status: Active Protocol: Activity Type Activity Date Activity User E-Sign Co-Sign Detail Recorded Client Recorded Date Recorded By Document 11/11/21 14:33 [facility] [id number] 11/11/21 14:41 BM Document 11/20/21 14:56 [facility] [id number] 11/20/21 15:15 BM 11/11/21 11/20/21 14:33 14:56 Wound Center Nurse 1 19-right inferior plantar -Combined with other wound No No -Current Size (cm) - Length 1.6 1.3 -Current Size (cm) - Width 1.3 1.3 -Current Size (cm) - Depth 0.1 0.2 -Total Square Cm 2.08 1.69 -Photo Taken No -Epithelialization Medium 34-66% Small 1-33% -Tunneling No No -Undermining/Tunneling No No -Circular Undermining No No -Exudate Amt Medium Large -Exudate Type Serosanguineous Yellow/Green -Wound Margin Distinct, Distinct, Outline Outline Attached Attached -Granulation Amt Large (67-100%) Large (67-100%) -Granulation Quality Red [place] -Slough/Fibrin No Yes -Necrosis Amt None Present (0 Small (1-33%) %) -Necrotic Tissue Type Adherent Slough -Texture (Natacha-wound Skin Appearance) Assessed,Callus Assessed, ,Scarring Scarring -Moisture (Natacha-wound Skin Appearance) Assessed Assessed -Color (Natacha-wound Skin Appearance) Assessed Assessed -Temperature (Natacha-wound Skin No Abnormality No Abnormality Appearance) (Pt Warm) (Pt Warm) -Tenderness on Palpation (Natacha-wound No Yes Skin Appearance) -Ulcer Cleansing Soap and Water Soap and Water -Foul Odor after Cleansing No No -Anesthetic Used 4% Lidocaine 5% Lidocaine Solution Gel #16 L Plantar foot -Combined with other wound No No -Current Size (cm) - Length 2.8 2.5 -Current Size (cm) - Width 1.8 1.5 -Current Size (cm) - Depth 1.3 0.4 -Total Square Cm 5.04 3.75 -Photo Taken No No -Epithelialization Small 1-33% None Present -Tunneling No No -Undermining/Tunneling Yes No -Undermining/Tunneling Starts (O'clock 10 ) -Undermining/Tunneling Ends (O'clock) 11 -Maximum Distance (cm) 0.2 -Circular Undermining No No -Exudate Amt Medium Large -Exudate Type Serosanguineous Serosanguineous -Wound Margin Distinct, Distinct, Outline Outline Attached Attached -Granulation Amt Medium (34-66%) Large (67-100%) -Granulation Quality Pale,Red Red -Slough/Fibrin Yes Yes -Necrosis Amt Small (1-33%) Small (1-33%) -Necrotic Tissue Type Adherent Slough Adherent Slough -Texture (Natacha-wound Skin Appearance) Assessed, Assessed, Scarring Scarring -Moisture (Natacha-wound Skin Appearance) Assessed Assessed,Dry/ Scaly -Color (Natacha-wound Skin Appearance) Assessed Assessed -Temperature (Natacha-wound Skin No Abnormality No Abnormality Appearance) (Pt Warm) (Pt Warm) -Tenderness on Palpation (Natacha-wound No Yes Skin Appearance) -Ulcer Cleansing Soap and Water Soap and Water -Foul Odor after Cleansing No No -Anesthetic Used 4% Lidocaine 5% Lidocaine Solution Gel WC - Nurse 2 - General Ulcer CM Notes Start: 11/11/21 14:33 Freq: Status: Active Protocol: Activity Type Activity Date Activity User E-Sign Co-Sign Detail Recorded Client Recorded Date Recorded By Document 11/11/21 14:50 [facility] [id number] 11/11/21 14:53 LISSY 11/11/21 14:50 Wound Center Nurse 2 19-right inferior plantar -Time 14:50 -Correct Patient Yes -Correct Side, Site, Position Yes -Correct Procedure Yes -Procedure Performed Yes -Type of Procedure Debridement -Clinical Debridement Subcutaneous -Tissue Removed Subcutaneous -Post Debridement (cm) - Length 1.6 -Post Debridement (cm) - Width 1.4 -Post Debridement (cm) - Depth 0.1 -Total Square (Post) (cm) 2.24 -Area of Debridement (cm) - Length 1.6 -Area of Debridement (cm) - Width 1.4 -Total Square (Area) (cm) 2.24 -Tunneling No -Undermining/Tunneling No -Circular Undermining No -Wound/Ulcer Outcome Not Healed -Ulcer Cleansing Rinsed/ Irrigated with Saline -Foul Odor after Cleansing No -Bioengineered Tissue No -Bleeding Controlled with Pressure -Offloading Yes -Type of Offloading Total Contact Cast (TCC) - Right ($) -Treatment Response Procedure Tolerated Well -Debridement - Subq, 1st 20sq cm Yes #16 L Plantar foot -Time 14:50 -Correct Patient Yes -Correct Side, Site, Position Yes -Correct Procedure Yes -Procedure Performed Yes -Type of Procedure Debridement -Clinical Debridement Subcutaneous -Tissue Removed Subcutaneous -Post Debridement (cm) - Length 2.8 -Post Debridement (cm) - Width 1.9 -Post Debridement (cm) - Depth 1.3 -Total Square (Post) (cm) 5.32 -Area of Debridement (cm) - Length 2.8 -Area of Debridement (cm) - Width 1.9 -Total Square (Area) (cm) 5.32 -Tunneling No -Undermining/Tunneling No -Circular Undermining No -Wound/Ulcer Outcome Not Healed -Ulcer Cleansing Rinsed/ Irrigated with Saline -Foul Odor after Cleansing No -Bioengineered Tissue No -Bleeding Controlled with Pressure -Offloading Yes -Type of Offloading Camwalker -Treatment Response Procedure Tolerated Well -Debridement - Subq, 1st 20sq cm No Pain Scale: 0-10 Numeric Is Patient Pain Free? Yes WC - Nurse 3 - General Ulcer D/C NN Start: 11/11/21 14:33 Freq: Status: Active Protocol: Activity Type Activity Date Activity User E-Sign Co-Sign Detail Recorded Client Recorded Date Recorded By Document 11/11/21 14:57 DL [id number] 11/11/21 15:01 DL Document 11/20/21 16:20 RB [id number] 11/20/21 16:21 RB 11/11/21 11/20/21 14:57 16:20 Wound Care Nurse 3 19-right inferior plantar -Ulcer Cleansing Soap and Water -Foul Odor after Cleansing No -Primary Dressing Applied Aquacel AG 4x4 Aquacel AG 4x4 -Other Dressing primary layer TCC applied -Other Covering TCC Boot -Aquacel AG 4x4 1 1 #16 L Plantar foot -Other Dressing aquacel AG aquacel ag -Primary Dressing Covered/Secured with Dry Gauze & Dry Gauze,Dry Roll Gauze, Gauze & Roll Secured with Gauze,Secured Tape with Tape -Other Covering [place] michoacano Left -Compression Wrap [place] Wrap -Other [place]ano Treatment Response Procedure Procedure Tolerated Well Tolerated Well Pain Scale: 0-10 Numeric Is Patient Pain Free? Yes Yes WC - Visit Discharge Discharge Condition Stable Stable Ambulatory Status Wheelchair Wheelchair Transportation Private Auto Medication Reconcilliation completed & No provided to patient/care provider Clinical Summary of Care Provided Yes Facility Type Home Health Orders Sent Yes Assessment/Plan Assessment/Plan (1) Chronic ulcer of right foot with fat layer exposed: CODE(S): L97.512 - Non-pressure chronic 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 layer exposed (2) Chronic foot pain: CODE(S): M79.673 - Pain in unspecified foot; G89.29 - Other chronic pain QUALIFIERS: Laterality: unspecified laterality Qualified Code(s): M79.673 - Pain in unspecified foot; G89.29 - Other chronic pain (3) Delayed wound healing: CODE(S): T14.8XXD - Other injury of unspecified body region, subsequent encounter (4) Debility: CODE(S): R53.81 - Other malaise (5) Hyperglycemia due to type 2 diabetes mellitus: CODE(S): E11.65 - Type 2 diabetes mellitus with hyperglycemia QUALIFIERS: Diabetes mellitus penitentiary insulin use: with penitentiary use Qualified Code(s): E11.65 - Type 2 diabetes mellitus with hyperglycemia; Z79.4 - assisted (current) use of insulin (6) Charcot's joint of left foot: CODE(S): M14.672 - Charcot's joint, left ankle and foot (7) Charcot's joint of right foot: CODE(S): M14.671 - Charcot's joint, right ankle and foot (8) Ulcer of left foot with fat layer exposed: CODE(S): L97.522 - Non-pressure chronic ulcer of other part of left foot with fat layer exposed (9) Bacteremia: CODE(S): R78.81 - Bacteremia PLAN: Patient seen and examined. Debridement was performed as noted in the clinical nursing panel. Dressing: Change daily with Aquacel Ag, left. Aquacel Ag was also applied to the right foot and an additional total contact cast was applied will remain intact this next week. Wash: Antibacterial soap and water daily left Verbal consent was obtained to apply total contact cast to the right lower extremity. This was applied according to standard protocol in a rectus well- padded manner. She tolerated this well. She was advised keep this clean, dry, and intact until follow-up next week. She is reassured no signs of local or systemic infection are noted today. To monitor. Patient is to remain strict nonweightbearing. She is noted to have a wheelchair. To continue. To continue with left cam walker boot. Dual density Plastizote liners were applied with an offloading pocket to the plantar lateral left foot ulcer site. Offloading to the right foot was noted with a total contact cast application today. She had recent hospitalization for abnormal glucose levels and these notes were reviewed. I advised her to work with her care source member services representative to obtain a glucometer at home to prevent further illness and hospitalizations. She was reassured there are no local or systemic signs of illness. It is noted she is already been undergoing a comprehensive wound healing plan and has delayed and nonhealing. She has had prior bone biopsies, wound culture, skin grafts, total contact cast, multiple hospital visits, surgeries, and intervention with infectious disease. Try to optimize nutrition by offering referral for nutrition patient declined. She has suspected adequate vascular perfusion for healing per her recent noninvasive vascular studies 09/01/2020 with triphasic waveforms noted. Patient's hemoglobin A1c was 13.1% on 12/29/2020. This was recently checked in June and was decreased to 9% range. Offloading strongly recommended. Optimal blood sugar control and increased protein intake also discussed. Follow up in 1 week at the wound healing center. All questions were answered and she was advised to call with any further questions or concerns. This note was generated with [employer] dictation software. It may contain incorrect words, spelling, and punctuation that were not noted in checking the note before signing.
[2021-11-27 09:13] VITALS: BP 158/87; BMI 32.3
--- NOTE | 2021-11-27 09:33 | PN.PCM_ITS ---
History of Present Illness Date of Service: 11/27/21 Chief Complaint: right foot ulcer left foot ulcer History of Wound: Patient is a 56-year-old female who presents to the clinic for bilateral foot ulcers. She denies odor or redness. She denies fever, chill, nausea, foot pain, redness, odor. She has had recent episodes of hypoglycemia for which she was hospitalized. She still experiences some nausea. She tolerated total contact cast well this past week. Nursing staff informed me that there was again a crack in the right total contact cast and the patient admits she often walks around at home without the cast boot in place, particularly during the night when out of bed to void. She is agreeable to another TCC today if needed. Progress of Wound: This is a patient of Dr. Edgar who is being seen by me today due to scheduling conflict. Left plantar foot ulcer stable in size. Tolerating Aquacel Ag daily dressings well without concerns. Right plantar foot ulcer improved in size today. Tolerating TCC, though not always compliant with using cast boot. Objective Data Objective Data Vital Signs: Vital Signs Temp Pulse Resp BP 97.2 F L 95 16 158/87 H 11/20/21 14:56 11/20/21 14:56 11/20/21 14:56 11/27/21 09:13 Oxygen Delivery Method Room Air Weight: 200 lb 14.792 oz Body Mass Index (BMI) 32.3 Charges/Coding Procedures Integumentary 111xxx-113xx: 24188 Umm subq tissue 20 sq cm/< Multi Select Codes Addendum Addendum: 56106- Right Total Contact Cast Physical Exam Narrative General Skin Exam: atrophy and dry skin; Negative for ecchymosis, no erythema, no eschar, and no odor. no purulence, no streaking Plantar left foot ulceration: No exposed tendon or probe to bone. No maceration noted. There is no erythema or edema or malodor or purulence or other suggestion signs of infection. Some slight serosanguineous drainage noted. Ulcer healing. Tissues are healthy and viable - ulcer is down to subcutaneous tissue. Plantar right foot ulceration. No exposed tendon or probe to bone; notable reduced ulcer depth. No maceration noted. There is no erythema or edema or malodor or purulence or other suggestion signs of infection. Some slight serosanguineous drainage noted. Tissues are healthy and viable . 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 Chronic charcot foot deformity noted bilaterally, no acute deformity. No gross laxity or crepitus with manipulation. Negative calf tenderness bilateral, no evidence of DVT bilateral. CFT < 2 seconds to all toes with no evidence of acute ischemia to foot bilateral. Chronic peripheral neuropathy bilateral foot. Const alert and no apparent distress HEENT normocephalic and head/scalp atraumatic Resp normal respiratory effort and normal air movement Effort and Inspection: able to speak in complete sentences Cardio Rate: regular rate Peripheral Pulses: dorsalis pedis pulses present bilateral 2+ Extremity General Extremity: Negative for cyanosis Psych cooperative Debridement Note Debridement Note Wound debrided: left plantar foot Laterality: Left Wound Grade/Stage: 3 Type of Debridement: Excisional debridement Anesthesia Used: 4% Lidocaine Solution Depth: in the subcutaneous layer Percentage of wound debrided: 100 Instrument Used: 5mm curette and #15 blade Tissue Removed: Slough and devitalized tissue Severity: Fat Layer Exposed Amount of bleeding with debridement: Mild Bleeding Controlled with: Pressure Patient tolerated procedure: Patient tolerated procedure well Post-Debridement Measurements and Additional Note: Post-Debridement Measurements/Treatment - Nurse 1 - General Ulcer Assessment Start: 11/11/21 14:33 Freq: Status: Active Protocol: SHANICE Activity Type Activity Date Activity User E-Sign Co-Sign Detail Recorded Client Recorded Date Recorded By Document 11/11/21 14:33 [facility] [id number] 11/11/21 14:41 [facility] Document 11/20/21 14:56 [facility] [id number] 11/20/21 15:15 [facility] Document 11/27/21 09:13 [place] [id number] 11/27/21 09:17 [place] 11/11/21 11/20/21 11/27/21 14:33 14:56 09:13 - Today's Visit Information Type of service Follow-up Visit Follow-up Visit Follow-up Visit (Physician/TELECOMMUNICATOR SUPERVISOR (Physician/TELECOMMUNICATOR SUPERVISOR (Physician/TELECOMMUNICATOR SUPERVISOR ) ) ) Arrival Mode Wheelchair Wheelchair Wheelchair Transfer Assistance Transfer Board Other Transfer Assist (Other) ASSIST X1 Patient Identification Verified (Name & Yes Yes Yes ) Patient Requires Transmission-Based No Precautions Safety Precautions NA Height and Weight Body Mass Index (BMI) 32.3 32.3 32.3 BMI Classification Obese Obese Obese Vital Signs Temperature (97.8 F-99.1 F) 96.5 F L 97.2 F L Temperature Source Temporal Temporal Pulse Rate (60-100) 98 95 Pulse Location Monitor Monitor Respiratory Rate (12-18) 16 16 Respiratory rate source Observation Observation Oxygen Delivery Method Room Air Room Air Blood Pressure (90/60-120/80) 169/79 H 152/88 H 158/87 H Blood Pressure Mean (mm Hg) 109 109 110 Source Monitor Monitor Monitor Position Sitting Sitting Blood Pressure Location Left Forearm Left Arm History Since Last Visit- (Skip if this is Patient's initial visit) Have you changed medications since your No No No last visit? Any new allergies or adverse reactions No No No Had a fall/change in ADL's that may No No No increase risk of falls Signs or symptoms of abuse and/or No No No neglect since last visit Have you been in the hospital since your No Yes No last visit? Has dressing in place as prescribed Yes Yes Yes Has compression in place as prescribed Yes Yes Yes Has offloadiing in place as prescribed Yes Yes Yes Experienced any changes in pain level or No No No management Left Footwear Removable Cast Removable Cast Removable Cast Walker/Walking Walker/Walking Walker/Walking Boot Boot Boot Right Footwear Total Contact Total Contact Removable Cast Cast Cast Walker/Walking Boot Pain Scale: 0-10 Numeric Is Patient Pain Free? Yes Yes Yes WC - Nurse 1 - General Ulcer Measurement Start: 11/11/21 14:33 Freq: Status: Active Protocol: Activity Type Activity Date Activity User E-Sign Co-Sign Detail Recorded Client Recorded Date Recorded By Document 11/11/21 14:33 [facility] [id number] 11/11/21 14:41 [facility] Document 11/20/21 14:56 [facility] [id number] 11/20/21 15:15 [facility] Document 11/27/21 09:13 [place] [id number] 11/27/21 09:17 [place] 11/11/21 11/20/21 11/27/21 14:33 14:56 09:13 Wound Center Nurse 1 19-right inferior plantar -Combined with other wound No No No -Current Size (cm) - Length 1.6 1.3 1 -Current Size (cm) - Width 1.3 1.3 1.2 -Current Size (cm) - Depth 0.1 0.2 0.2 -Total Square Cm 2.08 1.69 1.2 -Photo Taken No No -Epithelialization Medium 34-66% Small 1-33% Small 1-33% -Tunneling No No No -Undermining/Tunneling No No No -Circular Undermining No No No -Exudate Amt Medium Large Small -Exudate Type Serosanguineous Yellow/Green Serosanguineous -Wound Margin Distinct, Distinct, Distinct, Outline Outline Outline Attached Attached Attached -Granulation Amt Large (67-100%) Large (67-100%) Large (67-100%) -Granulation Quality Red Chauncey Chauncey -Slough/Fibrin No Yes Yes -Necrosis Amt None Present (0 Small (1-33%) Small (1-33%) %) -Necrotic Tissue Type Adherent Slough Adherent Slough -Structure Exposed N/A -Texture (Natacha-wound Skin Appearance) Assessed,Callus Assessed, No Abnormality, ,Scarring Scarring Assessed -Moisture (Natacha-wound Skin Appearance) Assessed Assessed No Abnormality, Assessed -Color (Natacha-wound Skin Appearance) Assessed Assessed No Abnormality, Assessed -Temperature (Natacha-wound Skin No Abnormality No Abnormality No Abnormality Appearance) (Pt Warm) (Pt Warm) (Pt Warm) -Tenderness on Palpation (Natacha-wound No Yes No Skin Appearance) -Ulcer Cleansing Soap and Water Soap and Water Soap and Water -Foul Odor after Cleansing No No No -Anesthetic Used 4% Lidocaine 5% Lidocaine 5% Lidocaine Solution Gel Gel #16 L Plantar foot -Combined with other wound No No No -Current Size (cm) - Length 2.8 2.5 2.8 -Current Size (cm) - Width 1.8 1.5 1.4 -Current Size (cm) - Depth 1.3 0.4 0.7 -Total Square Cm 5.04 3.75 3.92 -Photo Taken No No No -Epithelialization Small 1-33% None Present None Present -Tunneling No No No -Undermining/Tunneling Yes No No -Undermining/Tunneling Starts (O'clock 10 ) -Undermining/Tunneling Ends (O'clock) 11 -Maximum Distance (cm) 0.2 -Circular Undermining No No No -Exudate Amt Medium Large Medium -Exudate Type Serosanguineous Serosanguineous Serosanguineous -Wound Margin Distinct, Distinct, Distinct, Outline Outline Outline Attached Attached Attached -Granulation Amt Medium (34-66%) Large (67-100%) Small (1-33%) -Granulation Quality Pale,Red Red Chauncey -Slough/Fibrin Yes Yes Yes -Necrosis Amt Small (1-33%) Small (1-33%) Small (1-33%) -Necrotic Tissue Type Adherent Slough Adherent Slough Adherent Slough -Structure Exposed N/A -Texture (Natacha-wound Skin Appearance) Assessed, Assessed, No Abnormality, Scarring Scarring Assessed -Moisture (Natacha-wound Skin Appearance) Assessed Assessed,Dry/ No Abnormality, Scaly Assessed -Color (Natacha-wound Skin Appearance) Assessed Assessed No Abnormality, Assessed -Temperature (Natacha-wound Skin No Abnormality No Abnormality No Abnormality Appearance) (Pt Warm) (Pt Warm) (Pt Warm) -Tenderness on Palpation (Natacha-wound No Yes Yes Skin Appearance) -Ulcer Cleansing Soap and Water Soap and Water Soap and Water -Foul Odor after Cleansing No No No -Anesthetic Used 4% Lidocaine 5% Lidocaine 5% Lidocaine Solution Gel Gel Right Calf (cm) 39.5 Right Ankle (cm) 23.5 Left Calf (cm) 41 Left Ankle (cm) 23.3 - Nurse 2 - General Ulcer CM Notes Start: 11/11/21 14:33 Freq: Status: Active Protocol: Activity Type Activity Date Activity User E-Sign Co-Sign Detail Recorded Client Recorded Date Recorded By Document 11/11/21 14:50 [id number] 11/11/21 14:53 Document 11/20/21 15:13 PL [id number] 11/21/21 15:15 PL 11/11/21 11/20/21 14:50 15:13 Wound Center Nurse 2 19-right inferior plantar -Time 14:50 15:25 -Correct Patient Yes Yes -Correct Side, Site, Position Yes Yes -Correct Procedure Yes Yes -Procedure Performed Yes Yes -Type of Procedure Debridement Debridement -Clinical Debridement Subcutaneous Subcutaneous -Tissue Removed Subcutaneous Subcutaneous -Post Debridement (cm) - Length 1.6 1.3 -Post Debridement (cm) - Width 1.4 1.3 -Post Debridement (cm) - Depth 0.1 0.2 -Total Square (Post) (cm) 2.24 1.69 -Area of Debridement (cm) - Length 1.6 1.3 -Area of Debridement (cm) - Width 1.4 1.3 -Total Square (Area) (cm) 2.24 1.69 -Tunneling No No -Undermining/Tunneling No No -Circular Undermining No No -Wound/Ulcer Outcome Not Healed Not Healed -Ulcer Cleansing Rinsed/ Rinsed/ Irrigated with Irrigated with Saline Saline -Foul Odor after Cleansing No No -Bioengineered Tissue No No -Bleeding Controlled with Pressure Pressure -Offloading Yes -Type of Offloading Total Contact Total Contact Cast (TCC) - Cast (TCC) - Right ($) Right ($) -Treatment Response Procedure Procedure Tolerated Well Tolerated Well -Debridement - Subq, 1st 20sq cm Yes Yes #16 L Plantar foot -Time 14:50 15:25 -Correct Patient Yes Yes -Correct Side, Site, Position Yes Yes -Correct Procedure Yes Yes -Procedure Performed Yes Yes -Type of Procedure Debridement Debridement -Clinical Debridement Subcutaneous Subcutaneous -Tissue Removed Subcutaneous Subcutaneous -Post Debridement (cm) - Length 2.8 2.5 -Post Debridement (cm) - Width 1.9 1.5 -Post Debridement (cm) - Depth 1.3 0.4 -Total Square (Post) (cm) 5.32 3.75 -Area of Debridement (cm) - Length 2.8 2.5 -Area of Debridement (cm) - Width 1.9 1.5 -Total Square (Area) (cm) 5.32 3.75 -Tunneling No No -Undermining/Tunneling No No -Circular Undermining No No -Wound/Ulcer Outcome Not Healed Not Healed -Ulcer Cleansing Rinsed/ Rinsed/ Irrigated with Irrigated with Saline Saline -Foul Odor after Cleansing No No -Bioengineered Tissue No No -Bleeding Controlled with Pressure Pressure -Offloading Yes -Type of Offloading Camwalker -Treatment Response Procedure Procedure Tolerated Well Tolerated Well -Debridement - Subq, 1st 20sq cm No No Pain Scale: 0-10 Numeric Is Patient Pain Free? Yes Yes WC - Nurse 3 - General Ulcer D/C NN Start: 11/11/21 14:33 Freq: Status: Active Protocol: Activity Type Activity Date Activity User E-Sign Co-Sign Detail Recorded Client Recorded Date Recorded By Document 11/11/21 14:57 DL [id number] 11/11/21 15:01 DL Document 11/20/21 16:20 RB [id number] 11/20/21 16:21 RB 11/11/21 11/20/21 14:57 16:20 Wound Care Nurse 3 19-right inferior plantar -Ulcer Cleansing Soap and Water -Foul Odor after Cleansing No -Primary Dressing Applied Aquacel AG 4x4 Aquacel AG 4x4 -Other Dressing primary layer TCC applied -Other Covering TCC Boot -Aquacel AG 4x4 1 1 #16 L Plantar foot -Other Dressing aquacel AG aquacel ag -Primary Dressing Covered/Secured with Dry Gauze & Dry Gauze,Dry Roll Gauze, Gauze & Roll Secured with Gauze,Secured Tape with Tape -Other Covering MICHOACANO michoacano Left -Compression Wrap Michoacano Wrap -Other michoacano Treatment Response Procedure Procedure Tolerated Well Tolerated Well Pain Scale: 0-10 Numeric Is Patient Pain Free? Yes Yes WC - Visit Discharge Discharge Condition Stable Stable Ambulatory Status Wheelchair Wheelchair Transportation Private Auto Medication Reconcilliation completed & No provided to patient/care provider Clinical Summary of Care Provided Yes Facility Type Home Health Orders Sent Yes Additional Wound Wound debrided: Right plantar foot Laterality: Right Wound Grade/Stage: 2 Type of Debridement: Excisional debridement Anesthesia Used: 4% Lidocaine Solution Depth: in the subcutaneous layer Percentage of wound debrided: 100 Instrument Used: 3mm curette Tissue Removed: Slough and devitalized tissue Severity: Fat Layer Exposed Amount of bleeding with debridement: Mild Bleeding Controlled with: Pressure Patient tolerated procedure: Patient tolerated procedure well Assessment/Plan Assessment/Plan (1) Chronic ulcer of right foot with fat layer exposed: CODE(S): L97.512 - Non-pressure chronic 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 layer exposed (2) Chronic foot pain: CODE(S): M79.673 - Pain in unspecified foot; G89.29 - Other chronic pain QUALIFIERS: Laterality: unspecified laterality Qualified Code(s): M79.673 - Pain in unspecified foot; G89.29 - Other chronic pain (3) Delayed wound healing: CODE(S): T14.8XXD - Other injury of unspecified body region, subsequent encounter (4) Debility: CODE(S): R53.81 - Other malaise (5) Hyperglycemia due to type 2 diabetes mellitus: CODE(S): E11.65 - Type 2 diabetes mellitus with hyperglycemia QUALIFIERS: Diabetes mellitus termite exterminator helper insulin use: with termite exterminator helper use Qualified Code(s): E11.65 - Type 2 diabetes mellitus with hyperglycemia; Z79.4 - shelter (current) use of insulin (6) Charcot's joint of left foot: CODE(S): M14.672 - Charcot's joint, left ankle and foot (7) Charcot's joint of right foot: CODE(S): M14.671 - Charcot's joint, right ankle and foot (8) Ulcer of left foot with fat layer exposed: CODE(S): L97.522 - Non-pressure chronic ulcer of other part of left foot with fat layer exposed (9) Bacteremia: CODE(S): R78.81 - Bacteremia PLAN: Patient seen and examined. Debridement was performed as noted in the clinical nursing panel. Dressing: Change daily with Aquacel Ag, left. Aquacel Ag was also applied to t he right foot and an additional total contact cast was applied will remain intact this next week. Wash: Antibacterial soap and water daily left Verbal consent was obtained to apply total contact cast to the right lower extremity. This was applied according to standard protocol in a rectus well- padded manner. She tolerated this well. She was advised keep this clean, dry, and intact until follow-up next week. She is reassured no signs of local or systemic infection are noted today. To monitor. Patient is to remain strict nonweightbearing. She is noted to have a wheelchair. To continue. To continue with left cam walker boot. Dual density Plastizote liners were applied with an offloading pocket to the plantar lateral left foot ulcer site. Offloading to the right foot was noted with a total contact cast application today. She had recent hospitalization for abnormal glucose levels and these notes were reviewed. She has been advised to work with her care source new accounts representative to obtain a glucometer at home to prevent further illness and hospitalizations. She was reassured there are no local or systemic signs of illness. It is noted she has already been undergoing a comprehensive wound healing plan and has delayed and nonhealing. She has had prior bone biopsies, wound culture, skin grafts, total contact cast, multiple hospital visits, surgeries, and intervention with infectious disease. Try to optimize nutrition by offering referral for nutrition patient declined. She has suspected adequate vascular perfusion for healing per her recent noninvasive vascular studies 09/01/2020 with triphasic waveforms noted. Patient's hemoglobin A1c was 13.1% on 12/29/2020. This was recently checked in June and was decreased to 9% range. Offloading strongly recommended. Optimal blood sugar control and increased protein intake also discussed. Follow up in [address] Edgar. All questions were answered and she was advised to call with any further questions or concerns. This note was generated with [employer] dictation software. It may contain incorrect words, spelling, and punctuation that were not noted in checking the note before signing.
[2021-12-02 14:35] VITALS: BP 158/74; PULSE 99; RESP 16; TEMP 35.7; BMI 32.3
--- NOTE | 2021-12-02 15:16 | PCM.WC.PN ---
History of Present Illness Date of Service: 12/02/21 Chief Complaint: right foot ulcer left foot ulcer History of Wound: Patient is a 56-year-old female who presents to the clinic for bilateral foot ulcers. She denies odor or redness. She denies fever,nausea, foot pain, redness, odor. he tolerated total contact cast well this past week (right), however admits she did actually get it wet while taking a shower yesterday. Progress of Wound: Left foot stable Right foot improving Objective Data Objective Data Vital Signs: Vital Signs Temp Pulse Resp BP 96.2 F L 99 16 158/74 H 12/02/21 14:35 12/02/21 14:35 12/02/21 14:35 12/02/21 14:35 Oxygen Delivery Method Room Air Weight: 91.138 kg Body Mass Index (BMI) 32.3 Physical Exam Narrative General Skin Exam: atrophy and dry skin; Negative for ecchymosis, no erythema, no eschar, and no odor. no purulence, no streaking Plantar left foot ulceration: No exposed tendon or probe to bone. No maceration noted. There is no erythema or edema or malodor or purulence or other suggestion signs of infection. Some slight serosanguineous drainage noted. Ulcer healing. Tissues are healthy and viable - ulcer is down to subcutaneous tissue. Plantar right foot ulceration. No exposed tendon or probe to bone; notable reduced ulcer depth. No maceration noted. There is no erythema or edema or malodor or purulence or other suggestion signs of infection. Some slight serosanguineous drainage noted. Tissues are healthy and viable . 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 Chronic charcot foot deformity noted bilaterally, no acute deformity. No gross laxity or crepitus with manipulation. Negative calf tenderness bilateral, no evidence of DVT bilateral. CFT < 2 seconds to all toes with no evidence of acute ischemia to foot bilateral. Chronic peripheral neuropathy bilateral foot. Debridement Note Debridement Note Wound debrided: Plantar right foot, plantar left foot Wound Grade/Stage: 2, 1 Type of Debridement: Excisional debridement Anesthesia Used: 4% Lidocaine Solution Depth: in the subcutaneous layer Percentage of wound debrided: 100 Instrument Used: #15 blade Tissue Removed: fibrous, devitalized subcutaneous, biofilm, slough Severity: Fat Layer Exposed Amount of bleeding with debridement: Mild Bleeding Controlled with: Pressure Patient tolerated procedure: Patient tolerated procedure well Post-Debridement Measurements and Additional Note: Post-Debridement Measurements/Treatment WC - Nurse 1 - General Ulcer Assessment Start: 11/11/21 14:33 Freq: Status: Active Protocol: SHANICE Activity Type Activity Date Activity User E-Sign Co-Sign Detail Recorded Client Recorded Date Recorded By Document 11/11/21 14:33 [facility] [id number] 11/11/21 14:41 [facility] Document 11/20/21 14:56 [facility] [id number] 11/20/21 15:15 BM Document 11/27/21 09:13 AK [id number] 11/27/21 09:17 AK Document 12/02/21 14:35 [facility] [id number] 12/02/21 14:48 BM 11/11/21 11/20/21 11/27/21 14:33 14:56 09:13 - Today's Visit Information Type of service Follow-up Visit Follow-up Visit Follow-up Visit (Physician/INTERNIST MEDICAL DOCTOR MD (Physician/INTERNIST MEDICAL DOCTOR MD (Physician/INTERNIST MEDICAL DOCTOR MD ) ) ) Arrival Mode Wheelchair Wheelchair Wheelchair Transfer Assistance Transfer Board Other Transfer Assist (Other) ASSIST X1 Patient Identification Verified (Name & Yes Yes Yes ) Patient Requires Transmission-Based No Precautions Safety Precautions NA Height and Weight Body Mass Index (BMI) 32.3 32.3 32.3 BMI Classification Obese Obese Obese Vital Signs Temperature (97.8 F-99.1 F) 96.5 F L 97.2 F L Temperature Source Temporal Temporal Pulse Rate (60-100) 98 95 Pulse Location Monitor Monitor Respiratory Rate (12-18) 16 16 Respiratory rate source Observation Observation Oxygen Delivery Method Room Air Room Air Blood Pressure (90/60-120/80) 169/79 H 152/88 H 158/87 H Blood Pressure Mean (mm Hg) 109 109 110 Source Monitor Monitor Monitor Position Sitting Sitting Blood Pressure Location Left Forearm Left Arm History Since Last Visit- (Skip if this is Patient's initial visit) Have you changed medications since your No No No last visit? Any new allergies or adverse reactions No No No Had a fall/change in ADL's that may No No No increase risk of falls Signs or symptoms of abuse and/or No No No neglect since last visit Have you been in the hospital since your No Yes No last visit? Has dressing in place as prescribed Yes Yes Yes Has compression in place as prescribed Yes Yes Yes Has offloadiing in place as prescribed Yes Yes Yes Experienced any changes in pain level or No No No management Left Footwear Removable Cast Removable Cast Removable Cast Walker/Walking Walker/Walking Walker/Walking Boot Boot Boot Right Footwear Total Contact Total Contact Removable Cast Cast Cast Walker/Walking Boot Pain Scale: 0-10 Numeric Is Patient Pain Free? Yes Yes Yes 12/02/21 14:35 - Today's Visit Information Type of service Follow-up Visit (Physician/INTERNIST MEDICAL DOCTOR MD ) Arrival Mode Wheelchair Transfer Assistance Other Transfer Assist (Other) stand by Patient Identification Verified (Name & Yes ) Patient Requires Transmission-Based No Precautions Safety Precautions Height and Weight Body Mass Index (BMI) 32.3 BMI Classification Obese Vital Signs Temperature (97.8 F-99.1 F) 96.2 F L Temperature Source Temporal Pulse Rate (60-100) 99 Pulse Location Monitor Respiratory Rate (12-18) 16 Respiratory rate source Observation Oxygen Delivery Method Room Air Blood Pressure (90/60-120/80) 158/74 H Blood Pressure Mean (mm Hg) 102 Source Monitor Position Sitting Blood Pressure Location Left Forearm History Since Last Visit- (Skip if this is Patient's initial visit) Have you changed medications since your No last visit? Any new allergies or adverse reactions No Had a fall/change in ADL's that may No increase risk of falls Signs or symptoms of abuse and/or No neglect since last visit Have you been in the hospital since your No last visit? Has dressing in place as prescribed Yes Has compression in place as prescribed Yes Has offloadiing in place as prescribed Yes Experienced any changes in pain level or No management Left Footwear Removable Cast Walker/Walking Boot Right Footwear Total Contact Cast Pain Scale: 0-10 Numeric Is Patient Pain Free? Yes - Nurse 1 - General Ulcer Measurement Start: 11/11/21 14:33 Freq: Status: Active Protocol: Activity Type Activity Date Activity User E-Sign Co-Sign Detail Recorded Client Recorded Date Recorded By Document 11/11/21 14:33 [facility] [id number] 11/11/21 14:41 [facility] Document 11/20/21 14:56 [facility] [id number] 11/20/21 15:15 BM Document 11/27/21 09:13 AK [id number] 11/27/21 09:17 AK Document 12/02/21 14:35 [facility] [id number] 12/02/21 14:48 [facility] 11/11/21 11/20/21 11/27/21 14:33 14:56 09:13 Wound Center Nurse 1 19-right inferior plantar -Combined with other wound No No No -Current Size (cm) - Length 1.6 1.3 1 -Current Size (cm) - Width 1.3 1.3 1.2 -Current Size (cm) - Depth 0.1 0.2 0.2 -Total Square Cm 2.08 1.69 1.2 -Date of Last Picture (Recall this field) -Photo Taken No No -Epithelialization Medium 34-66% Small 1-33% Small 1-33% -Tunneling No No No -Undermining/Tunneling No No No -Circular Undermining No No No -Exudate Amt Medium Large Small -Exudate Type Serosanguineous Yellow/Green Serosanguineous -Wound Margin Distinct, Distinct, Distinct, Outline Outline Outline Attached Attached Attached -Granulation Amt Large (67-100%) Large (67-100%) Large (67-100%) -Granulation Quality Red [place] -Slough/Fibrin No Yes Yes -Necrosis Amt None Present (0 Small (1-33%) Small (1-33%) %) -Necrotic Tissue Type Adherent Slough Adherent Slough -Structure Exposed N/A -Texture (Natacha-wound Skin Appearance) Assessed,Callus Assessed, No Abnormality, ,Scarring Scarring Assessed -Moisture (Natacha-wound Skin Appearance) Assessed Assessed No Abnormality, Assessed -Color (Natacha-wound Skin Appearance) Assessed Assessed No Abnormality, Assessed -Temperature (Natacha-wound Skin No Abnormality No Abnormality No Abnormality Appearance) (Pt Warm) (Pt Warm) (Pt Warm) -Tenderness on Palpation (Natacha-wound No Yes No Skin Appearance) -Ulcer Cleansing Soap and Water Soap and Water Soap and Water -Foul Odor after Cleansing No No No -Anesthetic Used 4% Lidocaine 5% Lidocaine 5% Lidocaine Solution Gel Gel #16 L Plantar foot -Combined with other wound No No No -Current Size (cm) - Length 2.8 2.5 2.8 -Current Size (cm) - Width 1.8 1.5 1.4 -Current Size (cm) - Depth 1.3 0.4 0.7 -Total Square Cm 5.04 3.75 3.92 -Date of Last Picture (Recall this field) -Photo Taken No No No -Epithelialization Small 1-33% None Present None Present -Tunneling No No No -Undermining/Tunneling Yes No No -Undermining/Tunneling Starts (O'clock 10 ) -Undermining/Tunneling Ends (O'clock) 11 -Maximum Distance (cm) 0.2 -Circular Undermining No No No -Exudate Amt Medium Large Medium -Exudate Type Serosanguineous Serosanguineous Serosanguineous -Wound Margin Distinct, Distinct, Distinct, Outline Outline Outline Attached Attached Attached -Granulation Amt Medium (34-66%) Large (67-100%) Small (1-33%) -Granulation Quality Pale,Red [place] -Slough/Fibrin Yes Yes Yes -Necrosis Amt Small (1-33%) Small (1-33%) Small (1-33%) -Necrotic Tissue Type Adherent Slough Adherent Slough Adherent Slough -Structure Exposed N/A -Texture (Natacha-wound Skin Appearance) Assessed, Assessed, No Abnormality, Scarring Scarring Assessed -Moisture (Natacha-wound Skin Appearance) Assessed Assessed,Dry/ No Abnormality, Scaly Assessed -Color (Natacha-wound Skin Appearance) Assessed Assessed No Abnormality, Assessed -Temperature (Natacha-wound Skin No Abnormality No Abnormality No Abnormality Appearance) (Pt Warm) (Pt Warm) (Pt Warm) -Tenderness on Palpation (Natacha-wound No Yes Yes Skin Appearance) -Ulcer Cleansing Soap and Water Soap and Water Soap and Water -Foul Odor after Cleansing No No No -Anesthetic Used 4% Lidocaine 5% Lidocaine 5% Lidocaine Solution Gel Gel Right Calf (cm) 39.5 Right Ankle (cm) 23.5 Left Calf (cm) 41 Left Ankle (cm) 23.3 12/02/21 14:35 Wound Center Nurse 1 19-right inferior plantar -Combined with other wound No -Current Size (cm) - Length 0.8 -Current Size (cm) - Width 1.1 -Current Size (cm) - Depth 0.1 -Total Square Cm 0.88 -Date of Last Picture (Recall this 12/02/21 field) -Photo Taken Yes -Epithelialization Small 1-33% -Tunneling No -Undermining/Tunneling No -Circular Undermining No -Exudate Amt Medium -Exudate Type Serosanguineous -Wound Margin Flat & Intact -Granulation Amt Large (67-100%) -Granulation Quality [place] -Slough/Fibrin Yes -Necrosis Amt Small (1-33%) -Necrotic Tissue Type Adherent Slough -Structure Exposed -Texture (Natacha-wound Skin Appearance) Assessed,Callus ,Scarring -Moisture (Natacha-wound Skin Appearance) Assessed, Maceration,Dry/ Scaly -Color (Natacha-wound Skin Appearance) Assessed,Palor -Temperature (Natacha-wound Skin No Abnormality Appearance) (Pt Warm) -Tenderness on Palpation (Natacha-wound No Skin Appearance) -Ulcer Cleansing Soap and Water -Foul Odor after Cleansing No -Anesthetic Used 5% Lidocaine Gel #16 L Plantar foot -Combined with other wound No -Current Size (cm) - Length 2.4 -Current Size (cm) - Width 1.5 -Current Size (cm) - Depth 0.5 -Total Square Cm 3.60 -Date of Last Picture (Recall this 12/02/21 field) -Photo Taken Yes -Epithelialization Small 1-33% -Tunneling No -Undermining/Tunneling No -Undermining/Tunneling Starts (O'clock ) -Undermining/Tunneling Ends (O'clock) -Maximum Distance (cm) -Circular Undermining No -Exudate Amt Medium -Exudate Type Serosanguineous -Wound Margin Thickened -Granulation Amt Large (67-100%) -Granulation Quality Red -Slough/Fibrin No -Necrosis Amt None Present (0 %) -Necrotic Tissue Type -Structure Exposed -Texture (Natacha-wound Skin Appearance) Assessed,Callus ,Scarring -Moisture (Natacha-wound Skin Appearance) Assessed,Dry/ Scaly -Color (Natacha-wound Skin Appearance) Assessed -Temperature (Natacha-wound Skin No Abnormality Appearance) (Pt Warm) -Tenderness on Palpation (Natacha-wound No Skin Appearance) -Ulcer Cleansing Soap and Water -Foul Odor after Cleansing No -Anesthetic Used 5% Lidocaine Gel Right Calf (cm) Right Ankle (cm) Left Calf (cm) Left Ankle (cm) WC - Nurse 2 - General Ulcer CM Notes Start: 11/11/21 14:33 Freq: Status: Active Protocol: Activity Type Activity Date Activity User E-Sign Co-Sign Detail Recorded Client Recorded Date Recorded By Document 11/11/21 14:50 [id number] 11/11/21 14:53 JF Document 11/20/21 15:13 PL [id number] 11/21/21 15:15 PL Document 11/27/21 09:33 PL [id number] 11/27/21 09:37 PL Document 12/02/21 15:01 [id number] 12/02/21 15:04 JF 11/11/21 11/20/21 11/27/21 14:50 15:13 09:33 Wound Center Nurse 2 19-right inferior plantar -Time 14:50 15:25 09:20 -Correct Patient Yes Yes Yes -Correct Side, Site, Position Yes Yes Yes -Correct Procedure Yes Yes Yes -Procedure Performed Yes Yes Yes -Type of Procedure Debridement Debridement Debridement -Clinical Debridement Subcutaneous Subcutaneous Subcutaneous -Tissue Removed Subcutaneous Subcutaneous Subcutaneous -Post Debridement (cm) - Length 1.6 1.3 1.0 -Post Debridement (cm) - Width 1.4 1.3 1.2 -Post Debridement (cm) - Depth 0.1 0.2 0.2 -Total Square (Post) (cm) 2.24 1.69 1.20 -Area of Debridement (cm) - Length 1.6 1.3 1.0 -Area of Debridement (cm) - Width 1.4 1.3 1.2 -Total Square (Area) (cm) 2.24 1.69 1.20 -Tunneling No No No -Undermining/Tunneling No No No -Circular Undermining No No No -Wound/Ulcer Outcome Not Healed Not Healed Not Healed -Ulcer Cleansing Rinsed/ Rinsed/ Rinsed/ Irrigated with Irrigated with Irrigated with Saline Saline Saline -Foul Odor after Cleansing No No No -Bioengineered Tissue No No No -Bleeding Controlled with Pressure Pressure -Offloading Yes -Type of Offloading Total Contact Total Contact Total Contact Cast (TCC) - Cast (TCC) - Cast (TCC) - Right ($) Right ($) Right ($) -Treatment Response Procedure Procedure Tolerated Well Tolerated Well -Debridement - Subq, 1st 20sq cm Yes Yes Yes #16 L Plantar foot -Time 14:50 15:25 09:20 -Correct Patient Yes Yes Yes -Correct Side, Site, Position Yes Yes Yes -Correct Procedure Yes Yes Yes -Procedure Performed Yes Yes Yes -Type of Procedure Debridement Debridement Debridement -Clinical Debridement Subcutaneous Subcutaneous Subcutaneous -Tissue Removed Subcutaneous Subcutaneous Subcutaneous -Post Debridement (cm) - Length 2.8 2.5 2.5 -Post Debridement (cm) - Width 1.9 1.5 1.5 -Post Debridement (cm) - Depth 1.3 0.4 0.4 -Total Square (Post) (cm) 5.32 3.75 3.75 -Area of Debridement (cm) - Length 2.8 2.5 2.5 -Area of Debridement (cm) - Width 1.9 1.5 1.5 -Total Square (Area) (cm) 5.32 3.75 3.75 -Tunneling No No No -Undermining/Tunneling No No No -Circular Undermining No No No -Wound/Ulcer Outcome Not Healed Not Healed Not Healed -Ulcer Cleansing Rinsed/ Rinsed/ Rinsed/ Irrigated with Irrigated with Irrigated with Saline Saline Saline -Foul Odor after Cleansing No No No -Bioengineered Tissue No No No -Bleeding Controlled with Pressure Pressure Pressure -Offloading Yes -Type of Offloading Camwalker -Treatment Response Procedure Procedure Procedure Tolerated Well Tolerated Well Tolerated Well -Debridement - Subq, 1st 20sq cm No No No Pain Scale: 0-10 Numeric Is Patient Pain Free? Yes Yes Yes 12/02/21 15:01 Wound Center Nurse 2 19-right inferior plantar -Time 15:01 -Correct Patient Yes -Correct Side, Site, Position Yes -Correct Procedure Yes -Procedure Performed Yes -Type of Procedure Debridement -Clinical Debridement Subcutaneous -Tissue Removed Subcutaneous -Post Debridement (cm) - Length 0.8 -Post Debridement (cm) - Width 1.2 -Post Debridement (cm) - Depth 0.1 -Total Square (Post) (cm) 0.96 -Area of Debridement (cm) - Length 0.8 -Area of Debridement (cm) - Width 1.2 -Total Square (Area) (cm) 0.96 -Tunneling No -Undermining/Tunneling No -Circular Undermining No -Wound/Ulcer Outcome Not Healed -Ulcer Cleansing Rinsed/ Irrigated with Saline -Foul Odor after Cleansing No -Bioengineered Tissue No -Bleeding Controlled with Pressure -Offloading -Type of Offloading Camwalker -Treatment Response Procedure Tolerated Well -Debridement - Subq, 1st 20sq cm No #16 L Plantar foot -Time 15:02 -Correct Patient Yes -Correct Side, Site, Position Yes -Correct Procedure Yes -Procedure Performed Yes -Type of Procedure Debridement -Clinical Debridement Subcutaneous -Tissue Removed Subcutaneous -Post Debridement (cm) - Length 2.5 -Post Debridement (cm) - Width 1.5 -Post Debridement (cm) - Depth 0.5 -Total Square (Post) (cm) 3.75 -Area of Debridement (cm) - Length 2.5 -Area of Debridement (cm) - Width 1.5 -Total Square (Area) (cm) 3.75 -Tunneling No -Undermining/Tunneling No -Circular Undermining No -Wound/Ulcer Outcome Not Healed -Ulcer Cleansing Rinsed/ Irrigated with Saline -Foul Odor after Cleansing No -Bioengineered Tissue No -Bleeding Controlled with Pressure -Offloading Yes -Type of Offloading Total Contact Cast (TCC) - Left ($) -Treatment Response Procedure Tolerated Well -Debridement - Subq, 1st 20sq cm Yes Pain Scale: 0-10 Numeric Is Patient Pain Free? Yes WC - Nurse 3 - General Ulcer D/C NN Start: 11/11/21 14:33 Freq: Status: Active Protocol: Activity Type Activity Date Activity User E-Sign Co-Sign Detail Recorded Client Recorded Date Recorded By Document 11/11/21 14:57 DL [id number] 11/11/21 15:01 DL Document 11/20/21 16:20 RB [id number] 11/20/21 16:21 RB Document 11/27/21 09:35 AK [id number] 11/27/21 09:38 AK 11/11/21 11/20/21 11/27/21 14:57 16:20 09:35 Wound Care Nurse 3 19-right inferior plantar -Ulcer Cleansing Soap and Water Rinsed/ Irrigated with Saline -Foul Odor after Cleansing No No -Negative Pressure Wound Therapy N/A -Primary Dressing Applied Aquacel AG 4x4 Aquacel AG 4x4 Aquacel AG 2x2 -Other Dressing primary layer TCC applied -Primary Dressing Covered/Secured with Dry Gauze & Roll Gauze, Secured with Tape -Other Covering TCC Boot -Aquacel AG 4x4 1 1 -Aquacel AG 2x2 1 #16 L Plantar foot -Ulcer Cleansing Rinsed/ Irrigated with Saline -Foul Odor after Cleansing No -Negative Pressure Wound Therapy N/A -Primary Dressing Applied Aquacel AG 2x2, Optilok 6.5x10 -Other Dressing aquacel AG aquacel ag -Primary Dressing Covered/Secured with Dry Gauze & Dry Gauze,Dry Roll Gauze, Gauze & Roll Secured with Gauze,Secured Tape with Tape -Other Covering [place] -Aquacel AG 2x2 0 -Optilok 6.5x10 1 Left -Compression Wrap [place] Wrap -Other [place] Treatment Response Procedure Procedure Tolerated Well Tolerated Well Pain Scale: 0-10 Numeric Is Patient Pain Free? Yes Yes Yes WC - Visit Discharge Discharge Condition Stable Stable Stable Ambulatory Status Wheelchair Wheelchair Wheelchair Transportation Private Auto Medication Reconcilliation completed & No Yes provided to patient/care provider Clinical Summary of Care Provided Yes Yes Facility Type Home Health Orders Sent Yes Assessment/Plan Assessment/Plan (1) Chronic ulcer of right foot with fat layer exposed: CODE(S): L97.512 - Non-pressure chronic 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 layer exposed (2) Chronic foot pain: CODE(S): M79.673 - Pain in unspecified foot; G89.29 - Other chronic pain QUALIFIERS: Laterality: unspecified laterality Qualified Code(s): M79.673 - Pain in unspecified foot; G89.29 - Other chronic pain (3) Delayed wound healing: CODE(S): T14.8XXD - Other injury of unspecified body region, subsequent encounter (4) Debility: CODE(S): R53.81 - Other malaise (5) Hyperglycemia due to type 2 diabetes mellitus: CODE(S): E11.65 - Type 2 diabetes mellitus with hyperglycemia QUALIFIERS: Diabetes mellitus manager intermediate insulin use: with manager intermediate use Qualified Code(s): E11.65 - Type 2 diabetes mellitus with hyperglycemia; Z79.4 - buttermaker (current) use of insulin (6) Charcot's joint of left foot: CODE(S): M14.672 - Charcot's joint, left ankle and foot (7) Charcot's joint of right foot: CODE(S): M14.671 - Charcot's joint, right ankle and foot (8) Ulcer of left foot with fat layer exposed: CODE(S): L97.522 - Non-pressure chronic ulcer of other part of left foot with fat layer exposed (9) Bacteremia: CODE(S): R78.81 - Bacteremia PLAN: Patient seen and examined. Debridement was performed as noted in the clinical nursing panel. Dressing: Change daily with Aquacel Ag, right. Aquacel Ag was also applied to the left foot and an additional total contact cast was applied will remain intact this next week. To avoid showering if the cast is going to get wet or to wear a shower bag. Wash: Antibacterial soap and water daily left Verbal consent was obtained to apply total contact cast to the left lower extremity. This was applied according to standard protocol in a rectus well-padded manner. She tolerated this well. She was advised keep this clean, dry, and intact until follow-up next week. She is reassured no signs of local or systemic infection are noted today. To monitor. Patient is to remain strict nonweightbearing. She is noted to have a wheelchair. To continue. To continue with left cam walker boot. Dual density Plastizote liners were applied with an offloading pocket to the plantar lateral left foot ulcer site. Offloading to the right foot was noted with a total contact cast application today. She was reassured there are no local or systemic signs of illness. It is noted she is already been undergoing a comprehensive wound healing plan and has delayed and nonhealing. She has had prior bone biopsies, wound culture, skin grafts, total contact cast, multiple hospital visits, surgeries, and intervention with infectious disease. Try to optimize nutrition by offering referral for nutrition patient declined. She has suspected adequate vascular perfusion for healing per her recent noninvasive vascular studies 09/01/2020 with triphasic waveforms noted. Patient's hemoglobin A1c was 13.1% on 12/29/2020. This was recently checked in June and was decreased to 9% range. Offloading strongly recommended. Optimal blood sugar control and increased protein intake also discussed. Follow up in 1 week at the wound healing center. All questions were answered and she was advised to call with any further questions or concerns. This note was generated with [employer] software. It may contain incorrect words, spelling, and punctuation that were not noted in checking the note before signing.
== END 2021-12-07 23:59 | disposition home or self-care (01) ==
LOC: WC 14:30
PROVIDERS: PCP Family Medicine; Referring Provider Podiatrist; Visit Provider Podiatrist
DX: E11.621 Type 2 diabetes mellitus with foot ulcer (principal); L97.522 Non-pressure chronic ulcer of other part of left foot with fat layer exposed; L97.512 Non-pressure chronic 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 layer exposed; E11.610 Type 2 diabetes mellitus with diabetic neuropathic arthropathy; E11.65 Type 2 diabetes mellitus with hyperglycemia; Z79.4 Long term (current) use of insulin; R78.81 Bacteremia; G89.29 Other chronic pain; Z79.02 Long term (current) use of antithrombotics/antiplatelets; Z79.899 Other long term (current) drug therapy
CPT/HCPCS: 11042; 29445

== ENCOUNTER 2021-12-15 02:54 | Emergency (ER) | payer MEDICARE, MEDICAID, SELFPAY ==
[2018-09-21 13:23] VITALS: BMI 29.3
[2021-12-15] VITALS (8 sets, daily range): BP systolic 147–174; BP diastolic 75–94; PULSE 72–102; RESP 15–20; TEMP 36.8; O2SAT 92–98; BMI 35.4
--- NOTE | 2021-12-15 03:14 | RAD_ITS ---
EXAM: XR CHEST, 1 VIEW : 1965 CLINICAL INDICATION: chest pain TECHNIQUE: Frontal view of the chest. This report was created using [employer] report generation technology. COMPARISON: 11/16/21 FINDINGS: LUNGS AND PLEURAL SPACES: Mild left basilar airspace disease. No pneumothorax. No effusion. HEART: Mild enlargement of the cardiac silhouette. MEDIASTINUM: Central airways and mediastinal contour are unremarkable. BONES/JOINTS: Unremarkable. SOFT TISSUES: Unremarkable. RAD/Chest 1 View (Portable) IMPRESSION: Mild left basilar airspace disease. Findings may indicate atelectasis or infection. at 0344 Reported and signed by: Dallas Thakur MD Electronically Signed: Dallas Thakur MD at 3:43 EST ,
--- NOTE | 2021-12-15 03:14 | EKG12_ITS ---
Test Reason : CP Blood Pressure : / mmHG Vent. Rate : 093 BPM Atrial Rate : 093 BPM P-R Int : 154 ms QRS Dur : 088 ms QT Int : 368 ms P-R-T Axes : 057 025 188 degrees QTc Int : 457 ms Normal sinus rhythm Nonspecific T wave abnormality Abnormal ECG Confirmed by OTTO DELVALLE, DOMINIQUE ([id number]), editorial intern HARINI PHAM ([id number]) on 12/15/2021 10:02:53 AM Referred By: MICHAELLE Confirmed By:DOMINIQUE MENJIVAR MD
--- NOTE | 2021-12-15 03:14 | EX.ED.DYSGE1 ---
HPI History of Present Illness Chief Complaint: Chest Pain Narrative Narrative: 56-year-old female presenting for hyperglycemia. She states she took her Lantus this morning but then ran out of needles for her Humalog. She states that she has not had any more needles all day. She states that she did not call her primary care doctor for a refill of the needles because she called her daughter. Apparently her daughter has needles at her house that belonged to her. She was supposed to have brought them over to her mother but did not show up. The patient did not call her back to remind her. Patient states that she lives at home and her son is there but he did not ask him to go that the needles. She states that her blood sugar is now high. Patient states that now she is developing an achy chest which has been present for about 4 hours. She denies shortness of breath. She does admit to a dry mouth and nausea. She vomited one time. Patient has not had a fever, chills, cough. [facility] Medical History Acquired varus deformity of left foot Acquired varus deformity of right foot Amputation foot, bilat Anemia due to chronic illness Anxiety and depression Atherosclerosis of [place] coronary artery of [place] heart without angina pectoris Back pain, chronic Bilateral edema of lower extremity Charcot's joint of right foot Chronic renal insufficiency Chronic ulcer of left foot with fat layer exposed Chronic ulcer of right foot with necrosis of muscle COVID-19 (08/28/21) Delayed wound healing Diabetes Diabetic foot ulcer associated with type 2 diabetes mellitus Diabetic infection of left foot Diabetic polyneuropathy Diabetic ulcer of right ankle Elevated troponin Essential (primary) hypertension GERD (gastroesophageal reflux disease) Hemoglobin A1c greater than 9.0% HLD (hyperlipidemia) Hyperparathyroidism, secondary renal Hypertension Iron deficiency anemia Ischemic cardiomyopathy Myocardial infarct Non-compliance Non-smoker Normocytic anemia NSTEMI (non-ST elevated myocardial infarction) (09/20/18) Obesity (BMI 30.0-34.9) Osteomyelitis of left foot RLS (restless legs syndrome) Stage 4 chronic kidney disease TIA (transient ischemic attack) 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 Ulcer of left foot with fat layer exposed Ulcer of left foot with muscle involvement without evidence of necrosis Ulcer of right lower extremity with fat layer exposed Home Medications atorvastatin 80 mg tablet 80 mg PO QHS #90 tablet 11/30/19 [Rx Last Taken 07/05/21] pramipexole 1.5 mg PO BID 09/12/20 [History Last Taken 07/06/21] isosorbide mononitrate 30 mg PO DAILY 03/03/21 [History Last Taken 07/04/21] oxycodone 5 mg PO BID PRN 07/07/21 [History Last Taken 07/06/21] paroxetine HCl 20 mg PO QHS 07/07/21 [History Last Taken 07/06/21] benzonatate 100 mg PO TID PRN PRN 09/02/21 [History Last Taken Unknown] bupropion HCl 150 mg PO.IVFORM DAILY 09/02/21 [History Last Taken Unknown] cyclobenzaprine 5 mg PO QHS 09/02/21 [History Last Taken Unknown] furosemide 40 mg PO DAILY 09/02/21 [History Last Taken Unknown] carvedilol [Coreg] 6.25 mg PO BID #60 tab 09/08/21 [Rx Last Taken Unknown] magnesium oxide [MagOx] 400 mg PO DAILY #30 tab 09/08/21 [Rx Last Taken Unknown] Ted (with collagen) 1 packet PO BIDCM #0 ea 09/14/21 [Rx Last Taken Unknown] clopidogrel 75 mg PO DAILY 10/25/21 [History Last Taken Unknown] HySept 1 applic TOPICAL DAILY 10/27/21 [History Last Taken Unknown] acetaminophen [Tylenol] 650 mg PO Q6H PRN PRN #0 tab 10/27/21 [Rx Last Taken Unknown] aspirin 81 mg PO BREAKFAST #0 tab 10/27/21 [Rx Last Taken Unknown] Lantus Solostar U-100 Insulin 30 unit SUBCUT DAILY 11/16/21 [History Last Taken Unknown] hydroxyzine HCl 25 mg PO DAILY 11/16/21 [History Last Taken Unknown] insulin lispro [Humalog KwikPen Insulin] 15 unit SUBCUT TIDCM 11/16/21 [History Last Taken Unknown] Allergy/AdvReac Type Severity Reaction Status Date / Time Penicillins Allergy swelling Verified 11/16/21 07:28 in throat vancomycin Allergy Itching Verified 11/16/21 07:28 metronidazole AdvReac Nausea Verified 11/16/21 07:28 oxycodone [From OxyContin] AdvReac Shortness Verified 12/15/21 03:03 of breath Family History Mother Diabetes CVA (cerebral vascular accident) Brother CAD (coronary artery disease) CABG X 3 Cancer testicular Diabetes Brother CAD (coronary artery disease) CABG X3 Diabetes Brother CAD (coronary artery disease) Stents Diabetes Sister CAD (coronary artery disease) CABG x 3 CVA (cerebral vascular accident) Diabetes Surgical History History of bilateral carpal tunnel release History of History of coronary artery stent placement (12/31/20) History of foot surgery History of rotator cuff surgery Social History household members: none Smoking Status: Never smoker alcohol intake: never substance use type: does not use caffeine: Yes Type: carbonated beverages Number of servings: 2 ROS ROS ED Constitutional Constitutional ED: Denies chills or fever(s) Eyes Eyes: Denies blurry vision or diplopia ENT ENT ED: Denies rhinorrhea or sore throat Cardiovascular Cardiovascular: Reports chest pain; Denies palpitations or racing heartbeat Respiratory/Chest Respiratory/Chest: Denies cough or dyspnea Gastrointestinal Gastrointestinal: Reports nausea and vomiting; Denies abdominal pain, constipation or diarrhea Genitourinary Genitourinary ED: Denies dysuria or hematuria Musculoskeletal Musculoskeletal: Denies arthralgias or myalgias Integumentary Denies rash Neurologic Neurologic: Denies headache(s), paresthesias or weakness EXAM Physical Exam Const Vital Signs: 12/15/21 02:55 12/15/21 02:56 12/15/21 03:04 Temperature 98.2 F 98.2 F Temperature Source Temporal Temporal Pulse Rate 102 H 102 H Respiratory Rate 18 16 Respiratory Pattern Normal Blood Pressure 174/94 H 174/94 H Blood Pressure Mean 120 120 Pulse Ox 98 98 Oxygen Delivery Method Room Air Room Air 12/15/21 03:26 12/15/21 04:15 12/15/21 05:00 Temperature Temperature Source Pulse Rate 99 99 90 Respiratory Rate 19 H Respiratory Pattern Blood Pressure 155/83 H 154/81 H 154/79 H Blood Pressure Mean 107 105 104 Pulse Ox 96 Oxygen Delivery Method Room Air 12/15/21 06:00 12/15/21 07:23 Temperature Temperature Source Pulse Rate 90 99 Respiratory Rate 20 H 15 Respiratory Pattern Blood Pressure 147/75 H 160/76 H Blood Pressure Mean 99 104 Pulse Ox 93 92 Oxygen Delivery Method Room Air Room Air Positive obese General Appearance ED: NAD; Negative for pallor Nutritional Appearance: obese HEENT Reports moist mucous membranes Negative for trauma Eyes PERRL and EOMs intact bilaterally Chest Wall inspection of chest normal and palpation of chest normal Resp normal respiratory effort and clear to auscultation bilaterally Cardio regular rate and regular rhythm GI normal to inspection, nondistended, normoactive bowel sounds Extremity General Extremety ED: Negative for edema General Extremity: Negative for edema Neuro oriented x3 and CN's II-XII intact bilaterally Sensorium / Orientation: alert Motor Exam: strength 5/5 throughout Skin General Skin Exam: Negative for jaundice or pallor MDM MDM MDM Narrative Medical decision making narrative: Patient initially presenting for hyperglycemia. She states she is out of needles at home. She states that her son is there and when I asked her why she did not send her son for the needles she shrugs her shoulders and says I do not know. She states she does not know why her daughter never brought the needles over and has not tried to call her back. She states she did not try to call her primary care office to get a refill for needles because she has some at her daughter's house and she decided to wait. She states now he is asleep. She arrives by EMS because her blood sugars are now high. Now she is complaining of some chest achiness which she states is been present for 4 hours. She denies any viral symptoms. She states she does have history of CAD and cardiac stents. For this reason I obtained an EKG which on my interpretation shows a sinus rhythm with a ventricular of 93 bpm without sign of ischemic change. Chest x-ray on my interpretation shows no acute cardiopulmonary process and the radiologist read this as left basilar atelectasis versus infiltrate. Patient has no leukocytosis, fever, chills, cough so do not believe this is a pneumonia. CBC shows her white blood cell count is 6.6. Her hemoglobin is 8.8 and that is in her baseline. Platelets are normal at 236. High-sensitivity troponin is initially 27 and on 2-hour troponin is 26. There is no significant interval change. Creatinine at baseline at 2.09. Potassium and sodium are normal. Calcium is slightly low at 7.7. Glucose is initially 334 on blood work. She is receiving a liter of IV fluids and this will be reassessed. From a cardiac standpoint she can be discharged. As far as her hyperglycemia the patient states that she is able to get her needles and does not need a prescription for any. Patient's blood sugar reported to me at 289. I do not believe she is acute treatment for this. She has medicine at home. She is going to have her son pick her up and they are going to arrange to get the needles from her daughter's house. Impression: 1. Chest pain 2. Hyperglycemia Lab Data Attestation: I reviewed the patient's lab results. Labs: Laboratory Results - last 24 hr 12/15/21 12/15/21 12/15/21 03:25 03:25 06:10 WBC 6.6 RBC 2.97 L Hgb 8.8 L Hct 27.4 L MCV 92.3 MCH 29.6 MCHC 32.1 RDW Std Deviation 48.9 H RDW Coeff of Fior 14.6 Plt Count 236 MPV 11.1 Immature Gran % (Auto) 0.500 Neut % (Auto) 83.1 H Lymph % (Auto) 8.2 L Webb % (Auto) 4.9 Eos % (Auto) 3.0 Baso % (Auto) 0.3 Absolute Neuts (auto) 5.5 Absolute Lymphs (auto) 0.54 L Nucleated RBC % 0 Sodium 138 Potassium 4.2 Chloride 108 H Carbon Dioxide 24.0 Anion Gap 6 BUN 36 H Creatinine 2.09 H Estim Creat Clear Calc 28.14 Est GFR (MDRD) Af Amer 31 L Est GFR (MDRD) Non-Af 26 L BUN/Creatinine Ratio 17.2 Glucose 334 H Calcium 7.7 L Troponin I High Sens 27 26 Radiography Diagnostic Testing: Clinical Impression(s) from Imaging Studies Chest X-Ray 12/15/21 03:14 IMPRESSION: Mild left basilar airspace disease. Findings may indicate atelectasis or infection. at [id number] Reported and signed by: Dallas Thakur MD Electronically Signed: Dallas Thakur MD at 3:43 EST , Discharge Plan Triage Chief Complaint: Chest Pain ED Provider: Rafiq Marquez Dx/Rx/DC Orders Instructions: ED Chest Pain, Noncardiac, ED Diabetic Hyperglycemia Prescriptions: No Action atorvastatin 80 mg tablet 80 mg PO QHS Qty: 90 RF: 3 pramipexole 1 MG tablet 1.5 mg PO BID RF: 0 isosorbide mononitrate 30 mg tablet extended release 24 hr 30 mg PO DAILY RF: 0 paroxetine HCl 20 mg tablet 20 mg PO QHS RF: 0 oxycodone 5 mg tablet 5 mg PO BID PRN (Reason: Pain) RF: 0 benzonatate 100 mg Capsule 100 mg PO TID PRN PRN (Reason: Cough) RF: 0 cyclobenzaprine 5 mg Tablet 5 mg PO QHS RF: 0 bupropion HCl 150 mg PO.IVFORM DAILY RF: 0 furosemide 40 mg Tablet 40 mg PO DAILY RF: 0 carvedilol [Coreg] 6.25 mg tablet 6.25 mg PO BID Qty: 60 RF: 0 magnesium oxide [MagOx] 400 mg (241.3 mg magnesium) tablet 400 mg PO DAILY Qty: 30 RF: 0 Ted (with collagen) 7-7-1.5 gram Powder In Packet 1 packet PO BIDCM Qty: 0 RF: 0 clopidogrel 75 MG tablet 75 mg PO DAILY RF: 0 acetaminophen [Tylenol] 325 mg Tablet 650 mg PO Q6H PRN PRN (Reason: Pain Score 1-10/Temp > 100.7 F) Qty: 0 RF: 0 aspirin 81 mg Tablet,Delayed Release (Dr/Ec) 81 mg PO BREAKFAST Qty: 0 RF: 0 HySept 0.25 % solution 1 applic topical DAILY RF: 0 hydroxyzine HCl 25 mg Tablet 25 mg PO DAILY RF: 0 insulin lispro [Humalog KwikPen Insulin] 100 unit/mL insulin pen 15 unit subcut TIDCM RF: 0 Lantus Solostar U-100 Insulin 100 unit/mL (3 mL) insulin pen 30 unit SUBCUT DAILY RF: 0 Primary Care Provider: Raúl Eric Referrals: Raúl Eric MD [Primary Care Provider] - Disposition Disposition: Home, Self Care
[2021-12-15 03:32] LABS: Absolute Lymphocyte Count 0.54 X10^3/uL (0.83-4.51); Absolute Neutrophil Count 5.5 X10^3/uL (2.0-7.7); Basophil# 0.02 X10^3/uL; Basophil% 0.3 % (0-1); Hematocrit 27.4 % (37-47); Hemoglobin 8.8 g/dL (12.0-15.0); Lymphocyte # 0.54 X10^3/ul (0.83-4.51); Lymphocyte % 8.2 % (19-41); Mean Corp Hgb Conc 32.1 g/dL (32-36); Mean Corpuscular Hgb 29.6 pg (27.0-32.0); Mean Corpuscular Volume 92.3 fL (81-99); Mean Platelet Vol. 11.1 fl (6.2-12.0); Monocyte# 0.32 X10^3/uL; Monocyte% 4.9 % (0-10); NRBC Flagged by Analyzer 0 % (0-5); Neutrophil # 5.45 X10^3/uL (2.7-7.7); Neutrophil % 83.1 % (47-70); POSITIVE DIFFERENTIAL YES; Platelet Count 236 K/mm3 (150-450); RBC Distribution Width CV 14.6 % (11.6-14.6); RBC Distribution Width SD 48.9 fl (35.1-43.9); Red Blood Count 2.97 M/mm3 (4.2-5.4); White Blood Count 6.6 K/mm3 (4.4-11.0)
[2021-12-15] MEDS: 0.9% Normal Saline 1,000 ML 1000 ML IV (03:32)
[2021-12-15 03:41] LABS: Differential Indicated SCAN CRITERIA MET
[2021-12-15 04:39] LABS: Anion Gap 6 (5-15); BUN 36 mg/dL (7-18); BUN/Creat Ratio 17.2 RATIO (10-20); Calcium,Total 7.7 mg/dL (8.5-10.1); Chloride 108 mmol/L (98-107); Creatinine, Serum 2.09 mg/dL (0.55-1.02); EST Glomerular Filtration Rate 26 mL/min (>60); Est Glom Filt Rate - Afr Amer 31 mL/min (>60); Estimated Creatinine Clearance 28.14 ml/min; Glucose 334 mg/dL (74-106); Potassium 4.2 mmol/L (3.5-5.1); Sodium Level 138 mmol/L (136-145); Troponin-I HS 27 pg/mL (3.0-54.0)
[2021-12-15 06:37] LABS: Troponin-I HS 26 pg/mL (3.0-54.0)
[2021-12-15] MEDS: Ondansetron 4 MG/2 ML Vial IV (07:21)
[2021-12-15] MEDS: Morphine 4 MG/ML Syringe IV (07:21)
[2021-12-15 07:35] LABS: Bedside Glucose 289 mg/dL (74-106)
== END 2021-12-15 07:40 | disposition home or self-care (01) ==
PROVIDERS: Emergency Provider Student in an Organized Health Care Education/Training Program; PCP Family Medicine; Visit Provider Student in an Organized Health Care Education/Training Program
DX: R07.9 Chest pain, unspecified (principal); E11.65 Type 2 diabetes mellitus with hyperglycemia; E11.22 Type 2 diabetes mellitus with diabetic chronic kidney disease; E11.42 Type 2 diabetes mellitus with diabetic polyneuropathy; N18.4 Chronic kidney disease, stage 4 (severe); Z79.4 Long term (current) use of insulin; I12.9 Hypertensive chronic kidney disease with stage 1 through stage 4 chronic kidney disease, or unspecified chronic kidney disease; I25.5 Ischemic cardiomyopathy; I25.10 Atherosclerotic heart disease of native coronary artery without angina pectoris; E78.5 Hyperlipidemia, unspecified; R11.2 Nausea with vomiting, unspecified; D50.9 Iron deficiency anemia, unspecified; K21.9 Gastro-esophageal reflux disease without esophagitis; I25.2 Old myocardial infarction; E66.9 Obesity, unspecified; Z86.73 Personal history of transient ischemic attack (TIA), and cerebral infarction without residual deficits; Z79.02 Long term (current) use of antithrombotics/antiplatelets; Z79.82 Long term (current) use of aspirin; Z79.899 Other long term (current) drug therapy; Z95.5 Presence of coronary angioplasty implant and graft
CPT/HCPCS: 71045; 80048; 82962; 84484; 85025; 93005; 96361; 96374; 96375; 99285; J7030; A4216; J2405

== ENCOUNTER 2021-12-18 13:00 | Outpatient (RCR) | payer MEDICARE, MEDICAID, SELFPAY ==
[2018-09-21 13:23] VITALS: BMI 29.3
[2021-12-08 00:23] VITALS: BP 158/74; PULSE 99; RESP 16; TEMP 35.7; BMI 32.3
[2021-12-09 11:09] VITALS: BP 164/78; PULSE 97; RESP 20; TEMP 36.8; BMI 32.3
--- NOTE | 2021-12-09 12:05 | PCM.WC.PN ---
History of Present Illness Date of Service: 12/09/21 Chief Complaint: right foot ulcer left foot ulcer History of Wound: Patient is a 56-year-old female who presents to the clinic for bilateral foot ulcers. She denies odor or redness. She denies fever,nausea, foot pain, redness, odor. he tolerated total contact cast well this past week (right), however admits she did actually get it wet while taking a shower yesterday. Progress of Wound: improving bilateral Objective Data Objective Data Vital Signs: Vital Signs Temp Pulse Resp BP 98.3 F 97 20 H 164/78 H 12/09/21 11:09 12/09/21 11:09 12/09/21 11:09 12/09/21 11:09 Weight: 91.138 kg Body Mass Index (BMI) 32.3 Physical Exam Narrative General Skin Exam: atrophy and dry skin; Negative for ecchymosis, no erythema, no eschar, and no odor. no purulence, no streaking Plantar left foot ulceration: No exposed tendon or probe to bone. No maceration noted. There is no erythema or edema or malodor or purulence or other suggestion signs of infection. Some slight serosanguineous drainage noted. Ulcer healing. Tissues are healthy and viable - ulcer is down to subcutaneous tissue. Plantar right foot ulceration. No exposed tendon or probe to bone; notable reduced ulcer depth. No maceration noted. There is no erythema or edema or malodor or purulence or other suggestion signs of infection. Some slight serosanguineous drainage noted. Tissues are healthy and viable . 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 Chronic charcot foot deformity noted bilaterally, no acute deformity. No gross laxity or crepitus with manipulation. Negative calf tenderness bilateral, no evidence of DVT bilateral. CFT < 2 seconds to all toes with no evidence of acute ischemia to foot bilateral. Chronic peripheral neuropathy bilateral foot. Debridement Note Debridement Note Wound debrided: plantar right foot, plantar left foot Wound Grade/Stage: 2,1 Type of Debridement: Excisional debridement Anesthesia Used: 4% Lidocaine Solution Depth: in the subcutaneous layer Percentage of wound debrided: 100 Instrument Used: #15 blade Tissue Removed: fibrous, devitalized subcutaneous, biofilm, slough Severity: Fat Layer Exposed Amount of bleeding with debridement: Mild Bleeding Controlled with: Pressure Patient tolerated procedure: Patient tolerated procedure well Post-Debridement Measurements and Additional Note: Post-Debridement Measurements/Treatment [place] - Nurse 1 - General Ulcer Assessment Start: 12/09/21 11:08 Freq: Status: Active Protocol: SHANICE Activity Type Activity Date Activity User E-Sign Co-Sign Detail Recorded Client Recorded Date Recorded By Document 12/09/21 11:09 ZAYRA [id number] 12/09/21 11:22 DL 12/09/21 11:09 WC - Today's Visit Information Type of service Follow-up Visit (Physician/CREDIT COLLECTIONS REP ) Arrival Mode Wheelchair Transfer Assistance Manual Transfer Assist (Other) x1 Patient Identification Verified (Name & Yes ) Patient Requires Transmission-Based No Precautions Blood Sugar Stated by Patient Height and Weight Body Mass Index (BMI) 32.3 BMI Classification Obese Vital Signs Temperature (97.8 F-99.1 F) 98.3 F Temperature Source Temporal Pulse Rate (60-100) 97 Pulse Location Monitor Respiratory Rate (12-18) 20 H Respiratory rate source Observation Blood Pressure (90/60-120/80) 164/78 H Blood Pressure Mean (mm Hg) 106 Source Monitor History Since Last Visit- (Skip if this is Patient's initial visit) Have you changed medications since your No last visit? Any new allergies or adverse reactions No Had a fall/change in ADL's that may No increase risk of falls Signs or symptoms of abuse and/or No neglect since last visit Have you been in the hospital since your No last visit? Has dressing in place as prescribed Yes Has compression in place as prescribed Yes Has offloadiing in place as prescribed Yes Experienced any changes in pain level or No management Pain Scale: 0-10 Numeric Is Patient Pain Free? Yes - Nurse 1 - General Ulcer Measurement Start: 12/09/21 11:08 Freq: Status: Active Protocol: Activity Type Activity Date Activity User E-Sign Co-Sign Detail Recorded Client Recorded Date Recorded By Document 12/09/21 11:09 ZAYRA [id number] 12/09/21 11:22 DL 12/09/21 11:09 Wound Center Nurse 1 19-right inferior plantar -Current Size (cm) - Length 0.9 -Current Size (cm) - Width 0.9 -Current Size (cm) - Depth 0.1 -Total Square Cm 0.81 -Photo Taken No -Exudate Amt Small -Exudate Type Serosanguineous -Wound Margin Distinct, Outline Attached -Granulation Amt Large (67-100%) -Granulation Quality [place] -Necrosis Amt None Present (0 %) -Structure Exposed N/A -Texture (Natacha-wound Skin Appearance) Callus,Scarring -Moisture (Natacha-wound Skin Appearance) Maceration -Color (Natacha-wound Skin Appearance) No Abnormality -Temperature (Natacha-wound Skin No Abnormality Appearance) (Pt Warm) -Tenderness on Palpation (Natacha-wound No Skin Appearance) -Anesthetic Used 5% Lidocaine Gel #16 L Plantar foot -Current Size (cm) - Length 2.6 -Current Size (cm) - Width 1.7 -Current Size (cm) - Depth 0.4 -Total Square Cm 4.42 -Photo Taken No -Exudate Amt Medium -Wound Margin Distinct, Outline Attached -Granulation Amt Large (67-100%) -Granulation Quality [place],Red -Necrosis Amt Small (1-33%) -Necrotic Tissue Type Adherent Slough -Structure Exposed N/A -Texture (Antacha-wound Skin Appearance) Callus,Scarring -Moisture (Natacha-wound Skin Appearance) Dry/Scaly -Color (Natacha-wound Skin Appearance) No Abnormality -Temperature (Natacha-wound Skin No Abnormality Appearance) (Pt Warm) -Tenderness on Palpation (Natacha-wound No Skin Appearance) -Ulcer Cleansing Soap and Water -Foul Odor after Cleansing No -Anesthetic Used 5% Lidocaine Gel WC - Nurse 2 - General Ulcer CM Notes Start: 12/09/21 11:08 Freq: Status: Active Protocol: Activity Type Activity Date Activity User E-Sign Co-Sign Detail Recorded Client Recorded Date Recorded By Document 12/09/21 11:29 LISSY [id number] 12/09/21 11:32 LISSY 12/09/21 11:29 Wound Center Nurse 2 19-right inferior plantar -Time 11:30 -Correct Patient Yes -Correct Side, Site, Position Yes -Correct Procedure Yes -Procedure Performed Yes -Type of Procedure Debridement -Clinical Debridement Subcutaneous -Tissue Removed Subcutaneous -Post Debridement (cm) - Length 2.0 -Post Debridement (cm) - Width 0.9 -Post Debridement (cm) - Depth 0.1 -Total Square (Post) (cm) 1.80 -Area of Debridement (cm) - Length 2.0 -Area of Debridement (cm) - Width 0.9 -Total Square (Area) (cm) 1.80 -Tunneling No -Undermining/Tunneling No -Circular Undermining No -Wound/Ulcer Outcome Not Healed -Ulcer Cleansing Rinsed/ Irrigated with Saline -Foul Odor after Cleansing No -Bioengineered Tissue No -Offloading Yes -Type of Offloading Surgical Shoe -Treatment Response Procedure Tolerated Well -Debridement - Subq, 1st 20sq cm Yes #16 L Plantar foot -Time 11:30 -Correct Patient Yes -Correct Side, Site, Position Yes -Correct Procedure Yes -Procedure Performed Yes -Type of Procedure Debridement -Clinical Debridement Subcutaneous -Tissue Removed Subcutaneous -Post Debridement (cm) - Length 2.6 -Post Debridement (cm) - Width 1.7 -Post Debridement (cm) - Depth 0.2 -Total Square (Post) (cm) 4.42 -Area of Debridement (cm) - Length 2.6 -Area of Debridement (cm) - Width 1.7 -Total Square (Area) (cm) 4.42 -Tunneling No -Undermining/Tunneling No -Circular Undermining No -Wound/Ulcer Outcome Not Healed -Ulcer Cleansing Rinsed/ Irrigated with Saline -Foul Odor after Cleansing Yes, Due to Product Use -Bioengineered Tissue No -Bleeding Controlled with Pressure -Offloading Yes -Type of Offloading Total Contact Cast (TCC) - Left ($) -Treatment Response Procedure Tolerated Well -Debridement - Subq, 1st 20sq cm No Pain Scale: 0-10 Numeric Is Patient Pain Free? Yes Assessment/Plan Assessment/Plan (1) Chronic ulcer of right foot with fat layer exposed: CODE(S): L97.512 - Non-pressure chronic 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 layer exposed (2) Chronic foot pain: CODE(S): M79.673 - Pain in unspecified foot; G89.29 - Other chronic pain QUALIFIERS: Laterality: unspecified laterality Qualified Code(s): M79.673 - Pain in unspecified foot; G89.29 - Other chronic pain (3) Delayed wound healing: CODE(S): T14.8XXD - Other injury of unspecified body region, subsequent encounter (4) Debility: CODE(S): R53.81 - Other malaise (5) Hyperglycemia due to type 2 diabetes mellitus: CODE(S): E11.65 - Type 2 diabetes mellitus with hyperglycemia QUALIFIERS: 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 Debridement was performed as noted in the clinical nursing panel. Dressing: Change daily with Aquacel Ag, right. Aquacel Ag was also applied to the left foot and an additional total contact cast was applied will remain intact this next week. To avoid showering if the cast is going to get wet or to wear a shower bag. Wash: Antibacterial soap and water daily left Verbal consent was obtained to apply total contact cast to the left lower extremity. This was applied according to standard protocol in a rectus well-padded manner. She tolerated this well. She was advised keep this clean, dry, and intact until follow-up next week. She is reassured no signs of local or systemic infection are noted today. To monitor. Patient is to remain strict nonweightbearing. She is noted to have a wheelchair. To continue. To continue with left total contact cast. To wear the cam walker on the right side. Dual density Plastizote liners were applied with an offloading pocket to the plantar lateral right foot ulcer site. She was reassured there are no local or systemic signs of illness. It is noted she is already been undergoing a comprehensive wound healing plan and has delayed and nonhealing. She has had prior bone biopsies, wound culture, skin grafts, total contact cast, multiple hospital visits, surgeries, and intervention with infectious disease. Try to optimize nutrition by offering referral for nutrition patient declined. She has suspected adequate vascular perfusion for healing per her recent noninvasive vascular studies 09/01/2020 with triphasic waveforms noted. Patient's hemoglobin A1c was 13.1% on 12/29/2020. This was recently checked in June and was decreased to 9% range. Offloading strongly recommended. Optimal blood sugar control and increased protein intake also discussed. Follow up in 1 week at the wound healing center. All questions were answered and she was advised to call with any further questions or concerns. This note was generated with [employer] dictation software. It may contain incorrect words, spelling, and punctuation that were not noted in checking the note before signing.
[2021-12-18 13:06] VITALS: BP 169/85; PULSE 105; RESP 18; TEMP 37.1; BMI 32.3
== END 2022-01-07 23:59 | disposition home or self-care (01) ==
LOC: WC 13:00
PROVIDERS: PCP Family Medicine; Referring Provider Podiatrist; Visit Provider Podiatrist
DX: E11.621 Type 2 diabetes mellitus with foot ulcer (principal); L97.512 Non-pressure chronic 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 layer exposed; L97.522 Non-pressure chronic ulcer of other part of left foot with fat layer exposed; E11.610 Type 2 diabetes mellitus with diabetic neuropathic arthropathy; E11.65 Type 2 diabetes mellitus with hyperglycemia; Z79.4 Long term (current) use of insulin; R78.81 Bacteremia; M79.671 Pain in right foot; M79.672 Pain in left foot; G89.29 Other chronic pain; Z79.899 Other long term (current) drug therapy
CPT/HCPCS: 11042; 29445; 99212; G0463

== ENCOUNTER 2021-12-23 00:07 | Observation (INO) | payer MEDICARE, MEDICAID, SELFPAY ==
[2018-09-21 13:23] VITALS: BMI 29.3
[2021-12-23 00:09] VITALS: BP 173/99; PULSE 115; RESP 19; TEMP 36.6; O2SAT 97; BMI 34.3
--- NOTE | 2021-12-23 00:21 | CT_ITS ---
STUDY: CT ABDOMEN AND PELVIS WITHOUT CONTRAST REASON FOR EXAM: Female, 56 years old. back pain, left flank pain RADIATION DOSAGE (If Supplied By Facility): CTDIvol = ( 18.41 ) mGy, DLP = ( 993.59 ) mGycm TECHNIQUE: Transaxial images were obtained from the dome of the diaphragm to the symphysis pubis without oral contrast, and without intravenous contrast. Sagittal and coronal images were reconstructed. Individualized dose optimization techniques were used for this CT. COMPARISON: None. FINDINGS: Small bilateral pleural effusions. There is moderate cardiac enlargement. Normal liver. Normal gallbladder and extrahepatic biliary system. Normal spleen. Normal pancreas. Normal bilateral adrenal glands. Normal right kidney. Normal left kidney. Normal visualized stomach. Normal small intestine. Normal colon. The appendix is visualized and appears normal. Normal abdominal aorta. Normal inferior vena cava. Normal retroperitoneum. Normal urinary bladder. There is subcutaneous fat stranding in the abdominal wall suggesting anasarca. Normal osseous structures. CT/Abdomen/Pelvis without Cont IMPRESSION: Small bilateral pleural effusions. Anasarca. Electronically Signed: Graciela Jensen MD at 1:32 EDT ,
--- NOTE | 2021-12-23 00:33 | ED.VIS.BACK ---
HPI History of Present Illness Chief Complaint: Back Detail of Chief Complaint: Back pain that started yesterday afternoon Informant: patient Onset/Context/Timing Current Severity: 07/19 Narrative Narrative: Patient presents to the emergency department complaint of back pain that started yesterday afternoon while sitting in her wheelchair. She denies any trauma. She describes the pain as her left low back and radiates towards her left hip. Pain with movement and standing. She denies change in bowel or bladder function. She denies weakness in the extremity. Patient denies dysuria, urgency, or frequency. Patient use the Lidoderm patch but did not help her pain. She rates her pain a 10 out of 10. She is not had pain like this before. She not had back surgery. Prior similar symptoms: No PFSH PFSH Medical History Acquired varus deformity of left foot Acquired varus deformity of right foot Amputation foot, bilat Anemia due to chronic illness Anxiety and depression Atherosclerosis of [place] coronary artery of [place] heart without angina pectoris Back pain, chronic Bilateral edema of lower extremity Charcot's joint of right foot Chronic renal insufficiency Chronic ulcer of left foot with fat layer exposed Chronic ulcer of right foot with necrosis of muscle COVID-19 (08/28/21) Delayed wound healing Diabetes Diabetic foot ulcer associated with type 2 diabetes mellitus Diabetic infection of left foot Diabetic polyneuropathy Diabetic ulcer of right ankle Elevated troponin Essential (primary) hypertension GERD (gastroesophageal reflux disease) Hemoglobin A1c greater than 9.0% HLD (hyperlipidemia) Hyperparathyroidism, secondary renal Hypertension Iron deficiency anemia Ischemic cardiomyopathy Myocardial infarct Non-compliance Non-smoker Normocytic anemia NSTEMI (non-ST elevated myocardial infarction) (09/20/18) Obesity (BMI 30.0-34.9) Osteomyelitis of left foot RLS (restless legs syndrome) Stage 4 chronic kidney disease TIA (transient ischemic attack) 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 Ulcer of left foot with fat layer exposed Ulcer of left foot with muscle involvement without evidence of necrosis Ulcer of right lower extremity with fat layer exposed Home Medications atorvastatin 80 mg tablet 80 mg PO QHS #90 tablet 11/30/19 [Rx Last Taken 07/05/21] pramipexole 1.5 mg PO BID 09/12/20 [History Last Taken 07/06/21] isosorbide mononitrate 30 mg PO DAILY 03/03/21 [History Last Taken 07/04/21] oxycodone 5 mg PO BID PRN 07/07/21 [History Last Taken 07/06/21] paroxetine HCl 20 mg PO QHS 07/07/21 [History Last Taken 07/06/21] benzonatate 100 mg PO TID PRN PRN 09/02/21 [History Last Taken Unknown] bupropion HCl 150 mg PO.IVFORM DAILY 09/02/21 [History Last Taken Unknown] cyclobenzaprine 5 mg PO QHS 09/02/21 [History Last Taken Unknown] furosemide 40 mg PO DAILY 09/02/21 [History Last Taken Unknown] carvedilol [Coreg] 6.25 mg PO BID #60 tab 09/08/21 [Rx Last Taken Unknown] magnesium oxide [MagOx] 400 mg PO DAILY #30 tab 09/08/21 [Rx Last Taken Unknown] Ted (with collagen) 1 packet PO BIDCM #0 ea 09/14/21 [Rx Last Taken Unknown] clopidogrel 75 mg PO DAILY 10/25/21 [History Last Taken Unknown] HySept 1 applic TOPICAL DAILY 10/27/21 [History Last Taken Unknown] acetaminophen [Tylenol] 650 mg PO Q6H PRN PRN #0 tab 10/27/21 [Rx Last Taken Unknown] aspirin 81 mg PO BREAKFAST #0 tab 10/27/21 [Rx Last Taken Unknown] Lantus Solostar U-100 Insulin 30 unit SUBCUT DAILY 11/16/21 [History Last Taken Unknown] hydroxyzine HCl 25 mg PO DAILY 11/16/21 [History Last Taken Unknown] insulin lispro [Humalog KwikPen Insulin] 15 unit SUBCUT TIDCM 11/16/21 [History Last Taken Unknown] gabapentin 300 mg BID 12/23/21 [History Last Taken Unknown] Allergy/AdvReac Type Severity Reaction Status Date / Time Penicillins Allergy swelling Verified 12/23/21 00:13 in throat vancomycin Allergy Itching Verified 12/23/21 00:13 metronidazole AdvReac Nausea Verified 12/23/21 00:13 oxycodone [From OxyContin] AdvReac Shortness Verified 12/23/21 00:13 of breath Family History Mother Diabetes CVA (cerebral vascular accident) Brother CAD (coronary artery disease) CABG X 3 Cancer testicular Diabetes Brother CAD (coronary artery disease) CABG X3 Diabetes Brother CAD (coronary artery disease) Stents Diabetes Sister CAD (coronary artery disease) CABG x 3 CVA (cerebral vascular accident) Diabetes Surgical History History of bilateral carpal tunnel release History of History of coronary artery stent placement (12/31/20) History of foot surgery History of rotator cuff surgery Social History household members: none Smoking Status: Never smoker alcohol intake: never substance use type: does not use caffeine: Yes Type: carbonated beverages Number of servings: 2 ROS ROS ED Constitutional Constitutional ED: Reports systems reviewed and no addt'l complaints, except as documented; Denies body ache(s), change in weight or chills Eyes Eyes: Denies acute decrease in peripheral vision, change in vision, double vision or loss of vision ENT ENT ED: Reports none; Denies ear pain, lip swelling, loss taste/smell, neck pain, otalgia or sore throat Cardiovascular Cardiovascular: Reports none; Denies abdominal pain, chest pain with activity, leg edema, lightheadedness, palpitations, rapid heart rate or syncope Respiratory/Chest Respiratory/Chest: Reports none; Denies change in mental status, dry cough, dyspnea, hemoptysis, shortness of breath at rest or shortness of breath with exertion Gastrointestinal Gastrointestinal: Reports none; Denies abdominal pain, change in stool character, diarrhea, hematemesis, hematochezia, melena, rectal bleeding or vomiting Genitourinary Genitourinary ED: Reports none; Denies abdominal discomfort, anuria, dysuria, genital pain or polyuria Musculoskeletal Musculoskeletal: Reports none and back pain; Denies arthralgias, difficulty walking, extremity pain, muscle weakness or myalgias Integumentary Reports none; Denies abscess or rash Neurologic Neurologic: Reports none; Denies abnormal gait, confusion, focal weakness, frequent falls, headache(s), loss of vision, numbness, paresthesias, radicular pain, vertigo or weakness Psychiatric Psychiatric: Reports systems reviewed and no addt'l complaints, except as documented and none; Denies behavioral changes, confusion, difficulty concentrating, hallucinations, suicidal ideation, tactile hallucinations or visual hallucinations Endocrine Endocrinology: Denies none, cold intolerance, excessive sweating, fatigue or heat intolerance Hematologic/Lymphatic Hematologic/Lymphatic: Reports none; Denies anemia, easy bleeding or easy bruising Allergic/Immunologic Allergic/Immunologic ED: Denies as per HPI, none, lip swelling, mouth swelling, throat swelling, tongue swelling or hives EXAM Physical Exam Const Vital Signs: 12/23/21 00:09 12/23/21 00:54 Temperature 97.8 F Temperature Source Temporal Pulse Rate 115 H 107 H Respiratory Rate 19 H 18 Blood Pressure 173/99 H 155/88 H Blood Pressure Mean 123 110 Pulse Ox 97 92 Oxygen Delivery Method Room Air Room Air Positive well nourished and well developed General Appearance ED: well developed and NAD HEENT Reports TM's clear and moist mucous membranes normocephalic and atraumatic; Negative for trauma or tenderness Tympanic Membrane ED: Yes TM's clear Eyes PERRL and EOMs intact bilaterally General Eye ED: Negative for pale conjunctiva or scleral icterus Neck no lymphadenopathy, supple and no JVD General: Negative for tenderness Chest Wall inspection of chest normal and palpation of chest normal Chest: Negative for tenderness Resp normal respiratory effort and clear to auscultation bilaterally Effort and Inspection: Negative for respiratory distress or pain with movement Auscultation: Negative for rhonchi, wheezes or diminished lung sounds Cardio regular rate, regular rhythm, S1 normal heart sound, S2 normal heart sound and no murmurs Peripheral Pulses: pulses 2+ throughout GI normal to inspection, nondistended, normoactive bowel sounds, soft to palpation, non-tender, non-distended and no masses Back/Spine no CVA tenderness and no thoracic nor lumbar tenderness Back/Spine Narrative: Mild CVA tenderness on the left. I am unable to reproduce her pain with palpation of her back. She also points to an area of pain origin over the left buttock. There is no erythema or warmth noted or masses or abscesses noted. Patient does have pain with straight leg raising at about 20 degrees while supine. Deep tendon reflexes are plus 1 out of 4 bilaterally at the patella and Achilles. She has normal L5 extension bilaterally. Neurovascular intact distally. Extremity normal to inspection General Extremety ED: Negative for edema General Extremity: Negative for edema Neuro oriented x3, CN's II-XII intact bilaterally, no sensory deficits noted and gait normal Sensorium / Orientation: awake, alert, oriented to person, oriented to place and oriented to time Motor Exam: strength 5/5 throughout and strength abnormal Psych mental status grossly normal Skin no rashes or lesions noted and no wounds MDM MDM MDM Narrative Medical decision making narrative: IV line established on arrival. Patient was medicated with Dilaudid and Zofran as well as Norflex. She is feeling improved but with any movement she has severe pain. Lab work-up was relatively unremarkable. CT scan of the abdomen pelvis showed no evidence of kidney stone or other acute disease process. I suspect she may have a lumbar radiculopathy. At this point I do not appreciate any significant red flag symptoms of cauda equina. Case will be discussed with hospitalist evaluate for admission. She will require pain control and possibly further imaging such as possibly MRI to evaluate further. Lab Data Attestation: I reviewed the patient's lab results. Labs: Laboratory Results - last 24 hr 12/23/21 12/23/21 00:45 00:45 WBC 12.8 H RBC 3.09 L Hgb 9.1 L Hct 28.0 L MCV 90.6 MCH 29.4 MCHC 32.5 RDW Std Deviation 46.3 H RDW Coeff of Fior 14.1 Plt Count 317 MPV 11.2 Immature Gran % (Auto) 0.500 Neut % (Auto) 86.9 H Lymph % (Auto) 6.7 L [place] % (Auto) 4.6 Eos % (Auto) 0.9 Baso % (Auto) 0.4 Absolute Neuts (auto) 11.1 H Absolute Lymphs (auto) 0.85 Nucleated RBC % 0 Sodium 139 Potassium 3.8 Chloride 108 H Carbon Dioxide 24.0 Anion Gap 7 BUN 38 H Creatinine 2.46 H Estim Creat Clear Calc 23.90 Est GFR (MDRD) Af Amer 26 L Est GFR (MDRD) Non-Af 22 L BUN/Creatinine Ratio 15.4 Glucose 249 H Calcium 7.9 L Radiography Diagnostic Testing: Clinical Impression(s) from Imaging Studies Abdomen/Pelvis CT 12/23/21 00:21 IMPRESSION: Small bilateral pleural effusions. Anasarca. Electronically Signed: Graciela Jensen MD at 1:32 EDT , Discharge Plan Triage Chief Complaint: Back ED Provider: Anjum Asencio Dx/Rx/DC Orders Clinical Impression: Intractable back pain, Acute lumbar radiculopathy Prescriptions: No Action atorvastatin 80 mg tablet 80 mg PO QHS Qty: 90 RF: 3 pramipexole 1 MG tablet 1.5 mg PO BID RF: 0 isosorbide mononitrate 30 mg tablet extended release 24 hr 30 mg PO DAILY RF: 0 paroxetine HCl 20 mg tablet 20 mg PO QHS RF: 0 oxycodone 5 mg tablet 5 mg PO BID PRN (Reason: Pain) RF: 0 benzonatate 100 mg Capsule 100 mg PO TID PRN PRN (Reason: Cough) RF: 0 cyclobenzaprine 5 mg Tablet 5 mg PO QHS RF: 0 bupropion HCl 150 mg PO.IVFORM DAILY RF: 0 furosemide 40 mg Tablet 40 mg PO DAILY RF: 0 carvedilol [Coreg] 6.25 mg tablet 6.25 mg PO BID Qty: 60 RF: 0 magnesium oxide [MagOx] 400 mg (241.3 mg magnesium) tablet 400 mg PO DAILY Qty: 30 RF: 0 Ted (with collagen) 7-7-1.5 gram Powder In Packet 1 packet PO BIDCM Qty: 0 RF: 0 clopidogrel 75 MG tablet 75 mg PO DAILY RF: 0 acetaminophen [Tylenol] 325 mg Tablet 650 mg PO Q6H PRN PRN (Reason: Pain Score 1-10/Temp > 100.7 F) Qty: 0 RF: 0 aspirin 81 mg Tablet,Delayed Release (Dr/Ec) 81 mg PO BREAKFAST Qty: 0 RF: 0 HySept 0.25 % solution 1 applic topical DAILY RF: 0 hydroxyzine HCl 25 mg Tablet 25 mg PO DAILY RF: 0 insulin lispro [Humalog KwikPen Insulin] 100 unit/mL insulin pen 15 unit subcut TIDCM RF: 0 Lantus Solostar U-100 Insulin 100 unit/mL (3 mL) insulin pen 30 unit SUBCUT DAILY RF: 0 gabapentin 300 mg capsule 300 mg BID RF: 0 Primary Care Provider: Raúl Eric Referrals: Raúl Eric MD [Primary Care Provider] - Disposition Disposition: Acute Care Hospital [facility]
[2021-12-23] MEDS: Orphenadrine 60 MG/2 ML Ampul IM (00:37)
[2021-12-23] MEDS: HYDROmorphone 1 MG/ML Syringe IV (00:50)
[2021-12-23] MEDS: Ondansetron 4 MG/2 ML Vial IV (00:50)
[2021-12-23] MEDS: 0.9% Normal Saline 1,000 ML 150 ML IV (00:53)
[2021-12-23 00:54] VITALS: BP 155/88; PULSE 107; RESP 18; O2SAT 92
[2021-12-23 00:59] LABS: Absolute Lymphocyte Count 0.85 X10^3/uL (0.83-4.51); Absolute Neutrophil Count 11.1 X10^3/uL (2.0-7.7); Basophil# 0.05 X10^3/uL; Basophil% 0.4 % (0-1); Eosinophil# 0.12 X10^3/uL; Eosinophils% 0.9 % (0-5); Hemoglobin 9.1 g/dL (12.0-15.0); Lymphocyte # 0.85 X10^3/ul (0.83-4.51); Lymphocyte % 6.7 % (19-41); Mean Corp Hgb Conc 32.5 g/dL (32-36); Mean Corpuscular Hgb 29.4 pg (27.0-32.0); Mean Corpuscular Volume 90.6 fL (81-99); Mean Platelet Vol. 11.2 fl (6.2-12.0); Monocyte# 0.59 X10^3/uL; Monocyte% 4.6 % (0-10); NRBC Flagged by Analyzer 0 % (0-5); Neutrophil # 11.07 X10^3/uL (2.7-7.7); Neutrophil % 86.9 % (47-70); Platelet Count 317 K/mm3 (150-450); RBC Distribution Width CV 14.1 % (11.6-14.6); RBC Distribution Width SD 46.3 fl (35.1-43.9); Red Blood Count 3.09 M/mm3 (4.2-5.4); White Blood Count 12.8 K/mm3 (4.4-11.0)
[2021-12-23 01:22] LABS: Anion Gap 7 (5-15); BUN 38 mg/dL (7-18); BUN/Creat Ratio 15.4 RATIO (10-20); Calcium,Total 7.9 mg/dL (8.5-10.1); Chloride 108 mmol/L (98-107); Creatinine, Serum 2.46 mg/dL (0.55-1.02); EST Glomerular Filtration Rate 22 mL/min (>60); Est Glom Filt Rate - Afr Amer 26 mL/min (>60); Glucose 249 mg/dL (74-106); Potassium 3.8 mmol/L (3.5-5.1); Sodium Level 139 mmol/L (136-145)
[2021-12-23 02:25] LABS: Mucous, Urine 0 SEEN /hpf (<or=2+); White Blood Cells 0 SEEN /hpf (0-5)
--- NOTE | 2021-12-23 02:25 | HP.PCM_ITS ---
Documented by User: BRIAN Fitzgerald 12/23/21 02:42 HPI - General General Date of Admission: 12/23/21 Date of Service: 12/23/21 Chief Complaint: Intractable back pain HPI Narrative DIONY ROCHA, is a 56 F who presents with intractable back pain. Patient reports that it started earlier today and that she [place] Patient states that she has never had back pain like this before. Patient describes the pain as shooting with any type of movement. Patient states that it is in her left lower back/hip/buttock. Patient denies weakness however patient is wheelchair-bound with ability to transfer only. Patient has an extensive medical history that includes hyperlipidemia, depression, anxiety, CAD, neuropathy, diabetes mellitus type 2, hypertension. [facility] Medical History Acquired varus deformity of left foot Acquired varus deformity of right foot Amputation foot, bilat Anemia due to chronic illness Anxiety and depression Atherosclerosis of [place] coronary artery of [place] heart without angina pectoris Back pain, chronic Bilateral edema of lower extremity Charcot's joint of right foot Chronic renal insufficiency Chronic ulcer of left foot with fat layer exposed Chronic ulcer of right foot with necrosis of muscle COVID-19 (08/28/21) Delayed wound healing Diabetes Diabetic foot ulcer associated with type 2 diabetes mellitus Diabetic infection of left foot Diabetic polyneuropathy Diabetic ulcer of right ankle Elevated troponin Essential (primary) hypertension GERD (gastroesophageal reflux disease) Hemoglobin A1c greater than 9.0% HLD (hyperlipidemia) Hyperparathyroidism, secondary renal Hypertension Iron deficiency anemia Ischemic cardiomyopathy Myocardial infarct Non-compliance Non-smoker Normocytic anemia NSTEMI (non-ST elevated myocardial infarction) (09/20/18) Obesity (BMI 30.0-34.9) Osteomyelitis of left foot RLS (restless legs syndrome) Stage 4 chronic kidney disease TIA (transient ischemic attack) 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 Ulcer of left foot with fat layer exposed Ulcer of left foot with muscle involvement without evidence of necrosis Ulcer of right lower extremity with fat layer exposed Home Medications atorvastatin 80 mg tablet 80 mg PO QHS #90 tablet 11/30/19 [Rx Last Taken 07/05/21] pramipexole 1.5 mg PO BID 09/12/20 [History Last Taken 07/06/21] isosorbide mononitrate 30 mg PO DAILY 03/03/21 [History Last Taken 07/04/21] oxycodone 5 mg PO BID PRN 07/07/21 [History Last Taken 07/06/21] paroxetine HCl 20 mg PO QHS 07/07/21 [History Last Taken 07/06/21] benzonatate 100 mg PO TID PRN PRN 09/02/21 [History Last Taken Unknown] bupropion HCl 150 mg PO.IVFORM DAILY 09/02/21 [History Last Taken Unknown] cyclobenzaprine 5 mg PO QHS 09/02/21 [History Last Taken Unknown] furosemide 40 mg PO DAILY 09/02/21 [History Last Taken Unknown] carvedilol [Coreg] 6.25 mg PO BID #60 tab 09/08/21 [Rx Last Taken Unknown] magnesium oxide [MagOx] 400 mg PO DAILY #30 tab 09/08/21 [Rx Last Taken Unknown] Ted (with collagen) 1 packet PO BIDCM #0 ea 09/14/21 [Rx Last Taken Unknown] clopidogrel 75 mg PO DAILY 10/25/21 [History Last Taken Unknown] HySept 1 applic TOPICAL DAILY 10/27/21 [History Last Taken Unknown] acetaminophen [Tylenol] 650 mg PO Q6H PRN PRN #0 tab 10/27/21 [Rx Last Taken Unknown] aspirin 81 mg PO BREAKFAST #0 tab 10/27/21 [Rx Last Taken Unknown] Lantus Solostar U-100 Insulin 30 unit SUBCUT DAILY 11/16/21 [History Last Taken Unknown] hydroxyzine HCl 25 mg PO DAILY 11/16/21 [History Last Taken Unknown] insulin lispro [Humalog KwikPen Insulin] 15 unit SUBCUT TIDCM 11/16/21 [History Last Taken Unknown] gabapentin 300 mg BID 12/23/21 [History Last Taken Unknown] Allergy/AdvReac Type Severity Reaction Status Date / Time Penicillins Allergy swelling Verified 12/23/21 00:13 in throat vancomycin Allergy Itching Verified 12/23/21 00:13 metronidazole AdvReac Nausea Verified 12/23/21 00:13 oxycodone [From OxyContin] AdvReac Shortness Verified 12/23/21 00:13 of breath Family History Mother Diabetes CVA (cerebral vascular accident) Brother CAD (coronary artery disease) CABG X 3 Cancer testicular Diabetes Brother CAD (coronary artery disease) CABG X3 Diabetes Brother CAD (coronary artery disease) Stents Diabetes Sister CAD (coronary artery disease) CABG x 3 CVA (cerebral vascular accident) Diabetes Surgical History History of bilateral carpal tunnel release History of History of coronary artery stent placement (12/31/20) History of foot surgery History of rotator cuff surgery Social History household members: none Smoking Status: Never smoker alcohol intake: never substance use type: does not use caffeine: Yes Type: carbonated beverages Number of servings: 2 ROS Constitutional Constitutional: Denies anorexia, chills, fatigue, fever(s), malaise or weakness Cardiovascular Cardiovascular: Denies chest pain, edema, palpitations or syncope Respiratory/Chest Respiratory/Chest: Denies cough, shortness of breath at rest, shortness of breath with exertion or wheezing Gastrointestinal Gastrointestinal: Denies abdominal pain, constipation, diarrhea, nausea or vomiting Genitourinary Genitourinary: Denies dysuria Musculoskeletal Musculoskeletal: Reports back pain and extremity pain; Denies joint pain, joint stiffness or joint swelling Integumentary Integumentary: Denies dry skin Neurologic Neurologic: Denies abnormal gait, abnormal speech, confusion, dizziness or focal weakness Psychiatric Psychiatric: Reports anxiety; Denies depression Endocrine Endocrinology: Denies change in body appearance Hematologic/Lymphatic Hematologic/Lymphatic: Denies anemia Vital Signs Vital Signs Vital Signs: 12/23/21 00:09 12/23/21 00:54 Temperature 97.8 F Temperature Source Temporal Pulse Rate 115 H 107 H Respiratory Rate 19 H 18 Blood Pressure 173/99 H 155/88 H Blood Pressure Mean 123 110 Pulse Ox 97 92 Oxygen Delivery Method Room Air Room Air Weight Weight: 212 lb 15.465 oz Body Mass Index (BMI) 34.3 Physical Exam Const alert, oriented x3 and no apparent distress General Appearance: cooperative HEENT normocephalic and head/scalp atraumatic Eyes conjunctivae normal and no scleral icterus Neck supple General: trachea midline Lymph Lymphatic: no lymphadenopathy noted Resp normal respiratory effort, normal air movement and clear to auscultation bilaterally Cardio regular rate, regular rhythm, S1 normal heart sound, S2 normal heart sound and peripheral pulses 2+ throughout GI normal to inspection, nondistended, normoactive bowel sounds, soft to palpation and non-tender Extremity normal capillary refill General Extremity: edema bilateral lower extremity Details: moderate and no tenderness to palpation of joints or extremities Skin General Skin Exam: no breakdown and turgor normal Lesions: no lesions Rashes: no rashes Neuro no focal motor deficits and no sensory deficits noted Speech: speech normal Motor Exam: general weakness Psych thought process normal, cooperative and affect normal Appearance: appropriate Results Lab / Micro Data Result Diagrams: 12/23/21 00:45 12/23/21 00:45 Labs: Laboratory Results - last 24 hr 12/23/21 00:45: WBC 12.8 H, RBC 3.09 L, Hgb 9.1 L, Hct 28.0 L, MCV 90.6, MCH 29.4, MCHC 32.5, RDW Std Deviation 46.3 H, RDW Coeff of [place] 14.1, Plt Count 317, MPV 11.2, Immature Gran % (Auto) 0.500, Neut % (Auto) 86.9 H, Lymph % (Auto) 6.7 L, [place] % (Auto) 4.6, Eos % (Auto) 0.9, Baso % (Auto) 0.4, Absolute Neuts (auto) 11.1 H, Absolute Lymphs (auto) 0.85, Nucleated RBC % 0 12/23/21 00:45: Sodium 139, Potassium 3.8, Chloride 108 H, Carbon Dioxide 24.0, Anion Gap 7, BUN 38 H, Creatinine 2.46 H, Estim Creat Clear Calc 23.90, Est GFR (MDRD) Af Amer 26 L, Est GFR (MDRD) Non-Af 22 L, BUN/Creatinine Ratio 15.4, Glucose 249 H, Calcium 7.9 L Radiology Impression Abdomen/Pelvis CT 12/23/21 00:21 IMPRESSION: Small bilateral pleural effusions. Anasarca. Electronically Signed: Graciela Jensen MD at 1:32 EDT Reading Location ID and State: [facility] / [place] Tel , Service support , Assessment & Plan Assessment/Plan (1) Intractable back pain: PLAN: 1. Intractable back pain -Admit to [facility] for observation -Patient received 1 dose of Norflex IM in ER will continue p.o. twice daily -PT and OT to eval and treat -Oxycodone increased to 10 mg p.o. every 4 hours as needed while inpatient, patient on oxycodone at baseline 5 mg twice daily as needed -Every 2 hours positioning -CBC and BMP ordered for a.m. 2. Chronic kidney disease stage IV -Baseline creatinine approximately 2.05-2.15 -Mildly elevated at 2.46 -BMP daily 3. Essential hypertension -Vital signs per protocol, currently stable -Continue home medication regimen including isosorbide 4. Diabetes mellitus type 2 -ACH S blood sugars with sliding scale insulin ordered -Continue Lantus and Humalog dosing per home regimen once verified -Patient glucose 249 on BMP 5. Chronic anemia -Hemoglobin 9.1, consistent with patient's baseline -CBC daily DVT prophylaxis-observation status, not indicated This patient was seen by BRIAN Fitzgerald under the supervision of Dr. Bach. 32 minutes spent in clinical coordination of patient's plan of care. Documented by User: Dr. Gopi Bach MD 12/23/21 03:25 HPI - General General Date of Admission: 12/23/21 [facility] Medical History Acquired varus deformity of left foot Acquired varus deformity of right foot Amputation foot, bilat Anemia due to chronic illness Anxiety and depression Atherosclerosis of [place] coronary artery of [place] heart without angina pectoris Back pain, chronic Bilateral edema of lower extremity Charcot's joint of right foot Chronic renal insufficiency Chronic ulcer of left foot with fat layer exposed Chronic ulcer of right foot with necrosis of muscle COVID-19 (08/28/21) Delayed wound healing Diabetes Diabetic foot ulcer associated with type 2 diabetes mellitus Diabetic infection of left foot Diabetic polyneuropathy Diabetic ulcer of right ankle Elevated troponin Essential (primary) hypertension GERD (gastroesophageal reflux disease) Hemoglobin A1c greater than 9.0% HLD (hyperlipidemia) Hyperparathyroidism, secondary renal Hypertension Iron deficiency anemia Ischemic cardiomyopathy Myocardial infarct Non-compliance Non-smoker Normocytic anemia NSTEMI (non-ST elevated myocardial infarction) (09/20/18) Obesity (BMI 30.0-34.9) Osteomyelitis of left foot RLS (restless legs syndrome) Stage 4 chronic kidney disease TIA (transient ischemic attack) 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 Ulcer of left foot with fat layer exposed Ulcer of left foot with muscle involvement without evidence of necrosis Ulcer of right lower extremity with fat layer exposed Home Medications atorvastatin 80 mg tablet 80 mg PO QHS #90 tablet 11/30/19 [Rx Last Taken 07/05/21] pramipexole 1.5 mg PO BID 09/12/20 [History Last Taken 07/06/21] isosorbide mononitrate 30 mg PO DAILY 03/03/21 [History Last Taken 07/04/21] oxycodone 5 mg PO BID PRN 07/07/21 [History Last Taken 07/06/21] paroxetine HCl 20 mg PO QHS 07/07/21 [History Last Taken 07/06/21] benzonatate 100 mg PO TID PRN PRN 09/02/21 [History Last Taken Unknown] bupropion HCl 150 mg PO.IVFORM DAILY 09/02/21 [History Last Taken Unknown] cyclobenzaprine 5 mg PO QHS 09/02/21 [History Last Taken Unknown] furosemide 40 mg PO DAILY 09/02/21 [History Last Taken Unknown] carvedilol [Coreg] 6.25 mg PO BID #60 tab 09/08/21 [Rx Last Taken Unknown] magnesium oxide [MagOx] 400 mg PO DAILY #30 tab 09/08/21 [Rx Last Taken Unknown] Ted (with collagen) 1 packet PO BIDCM #0 ea 09/14/21 [Rx Last Taken Unknown] clopidogrel 75 mg PO DAILY 10/25/21 [History Last Taken Unknown] HySept 1 applic TOPICAL DAILY 10/27/21 [History Last Taken Unknown] acetaminophen [Tylenol] 650 mg PO Q6H PRN PRN #0 tab 10/27/21 [Rx Last Taken Unknown] aspirin 81 mg PO BREAKFAST #0 tab 10/27/21 [Rx Last Taken Unknown] Lantus Solostar U-100 Insulin 30 unit SUBCUT DAILY 11/16/21 [History Last Taken Unknown] hydroxyzine HCl 25 mg PO DAILY 11/16/21 [History Last Taken Unknown] insulin lispro [Humalog KwikPen Insulin] 15 unit SUBCUT TIDCM 11/16/21 [History Last Taken Unknown] gabapentin 300 mg BID 12/23/21 [History Last Taken Unknown] Allergy/AdvReac Type Severity Reaction Status Date / Time Penicillins Allergy swelling Verified 12/23/21 00:13 in throat vancomycin Allergy Itching Verified 12/23/21 00:13 metronidazole AdvReac Nausea Verified 12/23/21 00:13 oxycodone [From OxyContin] AdvReac Shortness Verified 12/23/21 00:13 of breath Family History Mother Diabetes CVA (cerebral vascular accident) Brother CAD (coronary artery disease) CABG X 3 Cancer testicular Diabetes Brother CAD (coronary artery disease) CABG X3 Diabetes Brother CAD (coronary artery disease) Stents Diabetes Sister CAD (coronary artery disease) CABG x 3 CVA (cerebral vascular accident) Diabetes Surgical History History of bilateral carpal tunnel release History of History of coronary artery stent placement (12/31/20) History of foot surgery History of rotator cuff surgery Social History household members: none Smoking Status: Never smoker alcohol intake: never substance use type: does not use caffeine: Yes Type: carbonated beverages Number of servings: 2 Results Lab / Micro Data Result Diagrams: 12/23/21 00:45 12/23/21 00:45 Charges/Coding Addendum Addendum: Patient was seen and examined independently. I agree with assessment and plan by BRIAN Fitzgerald Patient with a significant history of low back pain; and wheel chair bound and who sees Dr. Matute for pain management presented with left lower back pain that radiated to her left leg. Patient reports sitting in her wheel chair all day. She reported her pain as aching. The pain worsens with movement and improves with rest. Also on the same day of presentation reportedly she missed her flight that was supposed to take her to see her significant other. Physical exam: General: Well-nourished, well-developed. Head: Normocephalic, atraumatic, no tenderness Eyes: PERRLA, EOMI ENT, no trauma, moist mucous membranes, no rhinorrhea Neck: Nontender, full range of motion, no spinal tenderness, deformities, step- off CVS: Regular rate and rhythm. S1-S2 present. No murmur, gallop or rub. Respiratory : clear to auscultation bilaterally, chest wall nontender, no wheezing Abdomen: Soft, nontender, nondistended, normal bowel sounds, no masses : Deferred Back: Nontender, no CVA tenderness, no midline spinal tenderness, deformities, step-offs Extremities: Able to extend right lower extremity fully. Unable to extend left lower extremity fully. Strength in bilateral legs 5 out of 5. Patient crying secondary to pain in left lower with passive movement. Skin: Crater-like wound with pus at bilateral plantar side of feet. Neuro: Alert, oriented, cranial nerves II through XII grossly intact. Psychiatry: Normal mood. Normal affect. Not depressed. Not anxious. Intractable low back pain Abdomen and pelvis CT was visualized and independently interpreted and I agree with radiologist interpretation of small bilateral pleural effusions and anasarca. Labs reviewed showed white count of 12.8 with neutrophilia and lymphopenia. Urinalysis reviewed showed negative leukocyte esterase, negative nitrites. Urine bacteria was 2+. There was no pyuria. Squamous epithelial cells was within normal range. On home oxycodone 5 mg twice daily as needed. Oxycodone 5 mg every 6 hours as needed for pain ordered. Norflex ordered. PT and OT work with patient. MRI of lumbar spine ordered Diabetes mellitus Patient with hyperglycemia on presentation Accu-Chek QA [facility]. Order Basal, prandial and correction scale regimen. Hypertension Blood pressure is not within goal Home blood pressure medication continued. As needed hydralazine ordered. Trend blood pressure and adjust blood pressure medications. CKD stage IV CKD likely secondary to diabetic nephropathy. Stable. Bilateral plantar wound Wound care consult. DVT prophylaxis: SCDs ordered. Multi Select Codes Visit Charges Observation E&M Codin Initial observation care L3
[2021-12-23 02:27] LABS: Color, Urine Yellow (Yellow); Glucose, Dipstick 1000 mg/dl (Normal); Ketone-Dipstick Negative (Negative); Leukocyte Esterase-Dipstick Negative /ul (Negative); Nitrite-Dipstick Negative (Negative); Occult Blood-Urine 150 /ul (Negative); Protein-Dipstick 500 mg/dl (Negative); Specific Gravity, Urine 1.015 (1.002-1.030); Urine Bilirubin Dipstick Negative (Negative); Urine Clarity Clear (Clear); Urine Urobilinogen Normal (Normal)
[2021-12-23 02:34] LABS: Amorphous Sediment 2+; Bacteria 2+ /hpf (None Seen); Hyaline Cast 0-5 SEEN /lpf (0-5); Red Blood Cells-Urine 0-5 SEEN /hpf (0-5); Squamous Epithelial Cells - UA 0-5 SEEN /hpf (5-10)
--- NOTE | 2021-12-23 02:36 | MRI_ITS ---
STUDY: MRI LUMBAR SPINE WITHOUT CONTRAST REASON FOR EXAM: Female, 56 years old. pain TECHNIQUE: Standardized fat and water weighted pulse sequences were obtained in the sagittal and axial planes. COMPARISON: 03/09/2014 FINDINGS: T12-L1: Normal endplates. Normal disc height, hydration and morphology. Normal bilateral facet joints. Normal central canal and bilateral lateral recesses. Normal bilateral intervertebral neural foramina. Normal lumbar lordosis. There is no substantial scoliosis. Normal conus medullaris that terminates at the L1/L2. Acute microtrabecular stress reaction of the pedicles of L5. L1-2: Normal endplates. Normal disc height, hydration and morphology. Normal bilateral facet joints. Normal central canal and bilateral lateral recesses. Normal bilateral intervertebral neural foramina. L2-3: Mild bilateral facet hypertrophy and moderate ligament flavum hypertrophy. No change in the bilateral disc protrusion results in mild spinal stenosis and mild bilateral neural foraminal stenosis. L3-4: Moderate bilateral facet hypertrophy and severe ligament flavum hypertrophy. No change in the mild bilateral disc protrusion produces mild spinal stenosis and mild bilateral neural foraminal stenosis. L4-5: Severe bilateral facet hypertrophy with fluid in the facet joints consistent with instability and severe ligament flavum hypertrophy. No change in the moderate broad disc protrusion which produces moderate spinal stenosis with moderate lateral recess stenosis with abutment of the L5 roots bilaterally and moderate bilateral neural foraminal stenosis with abutment of the L4 nerve roots bilaterally. Furthermore, there is no change in the small (5 mm) (capsular synovial cyst within the posterior lateral aspect of the left neural formation lateral to the L4 nerve root. L5-S1: Normal endplates. Normal disc height, hydration and morphology. Normal bilateral facet joints. Normal central canal and bilateral lateral recesses. Normal bilateral intervertebral neural foramina. Normal visualized sacral ala. Severe friction related edema in the posterior subcutaneous fat. MRI/Spine Lumbar (Routine) IMPRESSION: No change from 01/07/2014. Electronically Signed: Scot Penny MD at 10:42 EDT ,
[2021-12-23 03:35] VITALS: BP 121/78; PULSE 99; RESP 22; TEMP 37.3; O2SAT 95
[2021-12-23 03:41] VITALS: BMI 34.2
[2021-12-23] MEDS: 0.9% Normal Saline 1,000 ML 75 ML IV (04:11)
[2021-12-23] MEDS: 0.9% Saline Lock 10 ML Syringe IV (04:12)
[2021-12-23] MEDS: oxyCODONE 5 MG Tablet PO ×2 (05:27→11:53)
[2021-12-23 05:39] LABS: Absolute Lymphocyte Count 1.23 X10^3/uL (0.83-4.51); Absolute Neutrophil Count 8.6 X10^3/uL (2.0-7.7); Basophil# 0.04 X10^3/uL; Basophil% 0.4 % (0-1); Eosinophil# 0.21 X10^3/uL; Eosinophils% 1.9 % (0-5); Hematocrit 26.7 % (37-47); Hemoglobin 8.8 g/dL (12.0-15.0); Lymphocyte # 1.23 X10^3/ul (0.83-4.51); Lymphocyte % 11.4 % (19-41); Mean Corpuscular Hgb 29.3 pg (27.0-32.0); Mean Platelet Vol. 11.3 fl (6.2-12.0); Monocyte# 0.69 X10^3/uL; Monocyte% 6.4 % (0-10); NRBC Flagged by Analyzer 0 % (0-5); Neutrophil # 8.57 X10^3/uL (2.7-7.7); Neutrophil % 79.3 % (47-70); Platelet Count 280 K/mm3 (150-450); RBC Distribution Width SD 45.5 fl (35.1-43.9); White Blood Count 10.8 K/mm3 (4.4-11.0)
[2021-12-23 05:59] LABS: Anion Gap 4 (5-15); BUN 38 mg/dL (7-18); BUN/Creat Ratio 16.6 RATIO (10-20); Calcium,Total 7.9 mg/dL (8.5-10.1); Chloride 109 mmol/L (98-107); Creatinine, Serum 2.29 mg/dL (0.55-1.02); EST Glomerular Filtration Rate 23 mL/min (>60); Est Glom Filt Rate - Afr Amer 28 mL/min (>60); Estimated Creatinine Clearance 25.68 ml/min; Glucose 96 mg/dL (74-106); Potassium 3.7 mmol/L (3.5-5.1); Sodium Level 138 mmol/L (136-145)
[2021-12-23 07:41] LABS: Bedside Glucose 98 mg/dL (74-106)
[2021-12-23 07:50] VITALS: O2SAT 95
[2021-12-23 09:35] VITALS: BP 129/65; PULSE 87; RESP 16; TEMP 37.4; O2SAT 96
[2021-12-23] MEDS: Orphenadrine 100 MG Tablet PO (10:02)
--- NOTE | 2021-12-23 11:39 | WOUNDNOTE ---
wound photo: left foot
--- NOTE | 2021-12-23 11:39 | WOUNDNOTE ---
wound photo: right foot
[2021-12-23] MEDS: Glucerna Shake 120 ML LIQUID PO (11:53)
[2021-12-23] MEDS: Insulin Lispro 100 UNIT/ML INSULN.PEN SC (11:55)
--- NOTE | 2021-12-23 12:07 | PCM.DC ---
Discharge Instructions Diet Discharge Diet: Carb Control Diet Activity Discharge Activity: Return to Normal Activity Dressing / Incision Call your doctor if you observe: Fever of 101 or Higher, Shortness of breath, Dizziness, Fainting spells, Swelling in the ankles, Chest pain and Increased palpitations (irregular heartbeat) Follow Up Care Test Results: Test results from this visit will be discussed in further detail at your follow-up appointment, if applicable. Discharge Plan Admission Admit Date/Time: 12/23/21 02:18 Attending Provider: Dinesh Daugherty Primary Care Provider: Raúl Eric Discharge Orders/Prescriptions Prescriptions: Continued atorvastatin 80 mg tablet 80 mg PO QHS Qty: 90 RF: 3 pramipexole 1 MG tablet 1.5 mg PO BID RF: 0 isosorbide mononitrate 30 mg tablet extended release 24 hr 30 mg PO DAILY RF: 0 paroxetine HCl 20 mg tablet 20 mg PO QHS RF: 0 oxycodone 5 mg tablet 5 mg PO BID PRN (Reason: Pain) RF: 0 benzonatate 100 mg Capsule 100 mg PO TID PRN PRN (Reason: Cough) RF: 0 bupropion HCl 150 mg PO.IVFORM DAILY RF: 0 furosemide 40 mg Tablet 40 mg PO DAILY RF: 0 carvedilol [Coreg] 6.25 mg tablet 6.25 mg PO BID Qty: 60 RF: 0 magnesium oxide [MagOx] 400 mg (241.3 mg magnesium) tablet 400 mg PO DAILY Qty: 30 RF: 0 Ted (with collagen) 7-7-1.5 gram Powder In Packet 1 packet PO BIDCM Qty: 0 RF: 0 clopidogrel 75 MG tablet 75 mg PO DAILY RF: 0 acetaminophen [Tylenol] 325 mg Tablet 650 mg PO Q6H PRN PRN (Reason: Pain Score 1-10/Temp > 100.7 F) Qty: 0 RF: 0 aspirin 81 mg Tablet,Delayed Release (Dr/Ec) 81 mg PO BREAKFAST Qty: 0 RF: 0 HySept 0.25 % solution 1 applic topical DAILY RF: 0 hydroxyzine HCl 25 mg Tablet 25 mg PO DAILY RF: 0 insulin lispro [Humalog KwikPen Insulin] 100 unit/mL insulin pen 15 unit subcut TIDCM RF: 0 Lantus Solostar U-100 Insulin 100 unit/mL (3 mL) insulin pen 30 unit SUBCUT DAILY RF: 0 gabapentin 300 mg capsule 300 mg BID RF: 0 cyclobenzaprine 5 mg Tablet 5 mg PO QHS Qty: 0 RF: 0 Referrals / Follow Up: Leticia Matute MD [STAFF PHYSICIAN] - Within 2 Weeks Raúl Eric MD [Primary Care Provider] - Within 1 Week Disposition Disposition (needs filled in before D/C Order can be placed): Home, Self Care
[2021-12-23 12:11] LABS: Bedside Glucose 290 mg/dL (74-106)
--- NOTE | 2021-12-23 13:17 | CASEMGMT ---
Therapy is recommending further therapy for pt at discharge. Initially, pt wanted [facility] and this RN CM placed call to [facility]. Per Zoila, pt cancelled all appt's last week since she was travelling to [place] on 12/22/21 and she states pt was not homebound. This RN CM back to room and pt is updated on all and still plans to try and travel. Pt is agreeable to OP referral to [facility] as she already uses [facility] van transport to [facility] wound center. Pt voices no further questions/concerns/needs. [place] RN CM
--- NOTE | 2021-12-23 14:42 | PCM.DC.SUM ---
Providers Date of Admission: 12/23/21 Primary Care Physician: Dr. Raúl Eric MD Consultations 12/23/21 03:39 Consult: Onc/Wound/agency sales director Routine Comment: Reason for Consult:: chronic wounds Reason For Visit: INTRACTABLE BACK PAIN Diagnosis Discharge Diagnosis (1) Intractable back pain: Status: Acute Code(s): M54.9 - Dorsalgia, unspecified Medications at Discharge Home Medications atorvastatin 80 mg tablet 80 mg PO QHS #90 tablet 11/30/19 pramipexole 1.5 mg PO BID 09/12/20 isosorbide mononitrate 30 mg PO DAILY 03/03/21 oxycodone 5 mg PO BID PRN 07/07/21 paroxetine HCl 20 mg PO QHS 07/07/21 benzonatate 100 mg PO TID PRN PRN 09/02/21 bupropion HCl 150 mg PO.IVFORM DAILY 09/02/21 furosemide 40 mg PO DAILY 09/02/21 carvedilol [Coreg] 6.25 mg PO BID #60 tab 09/08/21 magnesium oxide [MagOx] 400 mg PO DAILY #30 tab 09/08/21 Ted (with collagen) 1 packet PO BIDCM #0 ea 09/14/21 clopidogrel 75 mg PO DAILY 10/25/21 HySept 1 applic TOPICAL DAILY 10/27/21 acetaminophen [Tylenol] 650 mg PO Q6H PRN PRN #0 tab 10/27/21 aspirin 81 mg PO BREAKFAST #0 tab 10/27/21 Lantus Solostar U-100 Insulin 30 unit SUBCUT DAILY 11/16/21 hydroxyzine HCl 25 mg PO DAILY 11/16/21 insulin lispro [Humalog KwikPen Insulin] 15 unit SUBCUT TIDCM 11/16/21 cyclobenzaprine 5 mg PO QHS #0 tab 12/23/21 gabapentin 300 mg BID 12/23/21 Hospital Course Operations None Procedures None Summary of Care Provided Minutes Spent on Discharge: 37 Hospital Course: Per HPI: DIONY ROCHA, is a 56 F who presents with intractable back pain. Patient reports that it started earlier today and that she [place] Patient states that she has never had back pain like this before. Patient describes the pain as shooting with any type of movement. Patient states that it is in her left lower back/hip/buttock. Patient denies weakness however patient is wheelchair-bound with ability to transfer only. Patient has an extensive medical history that includes hyperlipidemia, depression, anxiety, CAD, neuropathy, diabetes mellitus type 2, hypertension. Hospital course: 1. Intractable low back pain?56-year-old female presented to the hospital with intractable low back pain. She has had back pain like this before and states that she was recently given a spinal injection by her pain management doctor about a week prior. He states that this started while she was sitting in the wheelchair all day at the airport waiting to go to [place] to see her . She says the pain is on the left side and that she has difficulty moving her leg, sensation is intact on her lower extremities and she is able to move her toes and her feet. She does have chronic wound from her type 2 diabetes in her legs are wrapped currently. Her pain is located in her left lower paraspinal muscle, however given the concern for the fact that she was saying that this was the worst pain she ever had, lumbar MRI was obtained which radiology read unchanged from 2014, with severe bilateral facet hypertrophy and L4-5. I discussed with her that there is no change in her MRI findings of her lumbar spine. I discussed with her the possibility for steroids which she did not want because it causes her neck and swelling. Unfortunately with her CKD 4 she does not qualify for NSAID use, and she is on chronic narcotics already. I do recommend that she follow-up with her pain management doctor when able. I also discussed with her outpatient physical therapy, which she is agreeable to. I discussed with her the plan for discharge today and she expressed understanding of the risk and benefits of going home and is okay with going home today. Of note, UA consistent with spilling glucose, she has significant proteinuria which is chronic for her, her nitrites and leukocyte esterase was normal and she did have 2+ bacteria but denies any dysuria therefore not consistent with a UTI. I do recommend that she follow-up with her PCP to try to get her diabetes and on track. 2. Type 2 diabetes, hypertension, chronic kidney disease stage IV, chronic lower extremity wounds, coronary artery disease with ischemic cardiomyopathy, hyperlipidemia, anxiety, depression are all chronic medical conditions which complicate her care. Her home medications were continued where appropriate. Physical Exam Const alert, oriented x3 and no apparent distress General Appearance: cooperative HEENT normocephalic and moist oral mucous membranes Eyes PERRL, EOMs intact bilaterally and conjunctivae normal Neck supple and no JVD Resp normal respiratory effort, no retractions, no use of accessory muscles and clear to auscultation bilaterally Auscultation: Negative for crackles, rales, rhonchi or wheezes Cardio regular rate, regular rhythm, S1 normal heart sound, S2 normal heart sound and no murmurs GI soft to palpation, non-tender and non-distended; Negative for hepatosplenomegaly Back/Spine Lumbar Spine / Lower Back: normal to inspection and paraspinal muscle tenderness left L4 and L5 Extremity General Extremity: edema bilateral Skin Skin Narrative: Bilateral lower extremity wounds dressed and being addressed by Neuro no focal motor deficits and no sensory deficits noted Psych affect normal Appearance: appropriate Weight / BMI Weight Weight: 212 lb 8.41 oz Body Mass Index (BMI) 34.2 ABG / Lab / Microbiology Data Result Diagrams: 12/23/21 05:20 12/23/21 05:20 Laboratory: Laboratory Results - last 24 hr 12/23/21 00:45: WBC 12.8 H, RBC 3.09 L, Hgb 9.1 L, Hct 28.0 L, MCV 90.6, MCH 29.4, MCHC 32.5, RDW Std Deviation 46.3 H, RDW Coeff of Fior 14.1, Plt Count 317, MPV 11.2, Immature Gran % (Auto) 0.500, Neut % (Auto) 86.9 H, Lymph % (Auto) 6.7 L, [place] % (Auto) 4.6, Eos % (Auto) 0.9, Baso % (Auto) 0.4, Absolute Neuts (auto) 11.1 H, Absolute Lymphs (auto) 0.85, Nucleated RBC % 0 12/23/21 00:45: Sodium 139, Potassium 3.8, Chloride 108 H, Carbon Dioxide 24.0, Anion Gap 7, BUN 38 H, Creatinine 2.46 H, Estim Creat Clear Calc 23.90, Est GFR (MDRD) Af Amer 26 L, Est GFR (MDRD) Non-Af 22 L, BUN/Creatinine Ratio 15.4, Glucose 249 H, Calcium 7.9 L 12/23/21 02:20: Urine Color Yellow, Urine Clarity Clear, Urine pH 5.0, Ur Specific [place] 1.015, Urine Protein 500 H, Urine Glucose (UA) 1000 H, Urine Ketones Negative, Urine Occult Blood 150 H, Urine Nitrite Negative, Urine Bilirubin Negative, Urine Urobilinogen Normal, Ur Leukocyte Esterase Negative, Urine RBC 0-5 SEEN, Urine WBC 0 SEEN, Ur Squamous Epith Cells 0-5 SEEN, Amorphous Sediment 2+, Urine Bacteria 2+, Hyaline Casts 0-5 SEEN, Urine Mucus 0 SEEN 12/23/21 05:20: WBC 10.8, RBC 3.00 L, Hgb 8.8 L, Hct 26.7 L, MCV 89.0, MCH 29.3, MCHC 33.0, RDW Std Deviation 45.5 H, RDW Coeff of Fior 14.0, Plt Count 280, MPV 11.3, Immature Gran % (Auto) 0.600, Neut % (Auto) 79.3 H, Lymph % (Auto) 11.4 L, [place] % (Auto) 6.4, Eos % (Auto) 1.9, Baso % (Auto) 0.4, Absolute Neuts (auto) 8.6 H, Absolute Lymphs (auto) 1.23, Nucleated RBC % 0 12/23/21 05:20: Sodium 138, Potassium 3.7, Chloride 109 H, Carbon Dioxide 25.0, Anion Gap 4 L, BUN 38 H, Creatinine 2.29 H, Estim Creat Clear Calc 25.68, Est GFR (MDRD) Af Amer 28 L, Est GFR (MDRD) Non-Af 23 L, BUN/Creatinine Ratio 16.6, Glucose 96, Calcium 7.9 L 12/23/21 06:56: POC Glucose 98 12/23/21 11:50: POC Glucose 290 H Radiography Diagnostic Testing: Radiology Impression Abdomen/Pelvis CT 12/23/21 00:21 IMPRESSION: Small bilateral pleural effusions. Anasarca. Electronically Signed: Graciela Jensen MD at 1:32 EDT , Lumbar Spine MRI 12/23/21 02:36 IMPRESSION: No change from 01/07/2014. Electronically Signed: Scot Penny MD at 10:42 EDT , D/C Instructions Discharge Diet: Carb Control Diet Call your doctor if you observe: Fever of 101 or Higher, Shortness of breath, Dizziness, Fainting spells, Swelling in the ankles, Chest pain and Increased palpitations (irregular heartbeat) Meaningful Use Info Meaningful Use Diagnoses (Choose all that apply): None applicable Discharge Plan Admission Admit Date/Time: 12/23/21 02:18 Attending Provider: Dinesh Daugherty Primary Care Provider: Raúl Eric Discharge Orders/Prescriptions Prescriptions: Continued atorvastatin 80 mg tablet 80 mg PO QHS Qty: 90 RF: 3 pramipexole 1 MG tablet 1.5 mg PO BID RF: 0 isosorbide mononitrate 30 mg tablet extended release 24 hr 30 mg PO DAILY RF: 0 paroxetine HCl 20 mg tablet 20 mg PO QHS RF: 0 oxycodone 5 mg tablet 5 mg PO BID PRN (Reason: Pain) RF: 0 benzonatate 100 mg Capsule 100 mg PO TID PRN PRN (Reason: Cough) RF: 0 bupropion HCl 150 mg PO.IVFORM DAILY RF: 0 furosemide 40 mg Tablet 40 mg PO DAILY RF: 0 carvedilol [Coreg] 6.25 mg tablet 6.25 mg PO BID Qty: 60 RF: 0 magnesium oxide [MagOx] 400 mg (241.3 mg magnesium) tablet 400 mg PO DAILY Qty: 30 RF: 0 Ted (with collagen) 7-7-1.5 gram Powder In Packet 1 packet PO BIDCM Qty: 0 RF: 0 clopidogrel 75 MG tablet 75 mg PO DAILY RF: 0 acetaminophen [Tylenol] 325 mg Tablet 650 mg PO Q6H PRN PRN (Reason: Pain Score 1-10/Temp > 100.7 F) Qty: 0 RF: 0 aspirin 81 mg Tablet,Delayed Release (Dr/Ec) 81 mg PO BREAKFAST Qty: 0 RF: 0 HySept 0.25 % solution 1 applic topical DAILY RF: 0 hydroxyzine HCl 25 mg Tablet 25 mg PO DAILY RF: 0 insulin lispro [Humalog KwikPen Insulin] 100 unit/mL insulin pen 15 unit subcut TIDCM RF: 0 Lantus Solostar U-100 Insulin 100 unit/mL (3 mL) insulin pen 30 unit SUBCUT DAILY RF: 0 gabapentin 300 mg capsule 300 mg BID RF: 0 cyclobenzaprine 5 mg Tablet 5 mg PO QHS Qty: 0 RF: 0 Referrals / Follow Up: Leticia Matute MD [STAFF PHYSICIAN] - 01/06/22 2:30 pm Raúl Eric MD [Primary Care Provider] - Within 1 Week Disposition Disposition (needs filled in before D/C Order can be placed): Home, Self Care Charges/Coding Visit Charges OBSV E&M: 14576 Observ/hosp same date L2
== END 2021-12-23 12:13 | disposition home or self-care (01) ==
LOC: ED 01:54 → PCU 02:42
PROVIDERS: Nurse Practitioner Family; Admitting Provider Hospitalist; Emergency Provider Emergency Medicine; PCP Family Medicine; Visit Provider Family Medicine
DX: M54.50 Low back pain, unspecified (principal); E11.621 Type 2 diabetes mellitus with foot ulcer; L97.522 Non-pressure chronic ulcer of other part of left foot with fat layer exposed; L97.512 Non-pressure chronic 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 layer exposed; E11.22 Type 2 diabetes mellitus with diabetic chronic kidney disease; E11.42 Type 2 diabetes mellitus with diabetic polyneuropathy; N18.4 Chronic kidney disease, stage 4 (severe); N25.81 Secondary hyperparathyroidism of renal origin; Z79.4 Long term (current) use of insulin; M54.16 Radiculopathy, lumbar region; I12.9 Hypertensive chronic kidney disease with stage 1 through stage 4 chronic kidney disease, or unspecified chronic kidney disease; I25.10 Atherosclerotic heart disease of native coronary artery without angina pectoris; F32.A Depression, unspecified; E78.5 Hyperlipidemia, unspecified; I25.5 Ischemic cardiomyopathy; Z99.3 Dependence on wheelchair; F41.9 Anxiety disorder, unspecified; Z86.16 Personal history of COVID-19; K21.9 Gastro-esophageal reflux disease without esophagitis; E66.9 Obesity, unspecified; Z79.899 Other long term (current) drug therapy; Z79.82 Long term (current) use of aspirin; Z79.02 Long term (current) use of antithrombotics/antiplatelets; I25.2 Old myocardial infarction
CPT/HCPCS: 36415; 72148; 74176; 80048; 81001; 82962; 85025; 96361; 96372; 96374; 96375; 97162; 97166; 97802; 99218; 99285; J7030; P9612; A4216; G0378; J2405

== ENCOUNTER 2022-01-04 11:23 | Outpatient (CLI) | payer MEDICARE, MEDICAID, SELFPAY ==
[2018-09-21 13:23] VITALS: BMI 29.3
[2022-01-04 12:42] LABS: Amphetamine Urine VISTA NEGATIVE (<1000 ng/mL); Barbiturate Urine VISTA NEGATIVE (< 200 ng/mL); Benzodiazepine Urine VISTA NEGATIVE (< 200 ng/mL); Cocaine Urine VISTA NEGATIVE (< 300 ng/mL); Ecstacy Urine VISTA NEGATIVE (< 500 ng/mL); Methadone Urine VISTA NEGATIVE (< 300 ng/mL); PCP Urine VISTA NEGATIVE (< 25 ng/mL); THC Urine VISTA NEGATIVE (< 50 ng/mL); Vista UDS pH Range 5
== END 2022-01-04 23:59 | disposition home or self-care (01) ==
PROVIDERS: PCP Family Medicine; Referring Provider Anesthesiology Pain Medicine; Visit Provider Anesthesiology Pain Medicine
DX: Z00.00 Encounter for general adult medical examination without abnormal findings (principal)
CPT/HCPCS: 80307

== ENCOUNTER 2022-01-04 21:52 | Inpatient (IN) | payer MEDICARE, MEDICAID, SELFPAY ==
[2018-09-21 13:23] VITALS: BMI 29.3
[2022-01-04 21:53] VITALS: BP 160/93; PULSE 129; RESP 17; TEMP 36.6; O2SAT 100; BMI 32.3
--- NOTE | 2022-01-04 22:18 | EX.ED.DYSGE1 ---
HPI History of Present Illness Chief Complaint: Lower Extremity Injury Informant: patient Onset/Context/Timing Onset: Days Current Severity: Moderate Maximum Severity: Moderate Narrative Narrative: Patient presents with 3-day history of bilateral lower extremity swelling and increased pain today. She states she is been trying to wrap her legs given the elevated but continues to have severe pain and swelling. She does report a history of CHF. She does feel that she has been urinating normally. [facility] Medical History Acquired varus deformity of left foot Acquired varus deformity of right foot Amputation foot, bilat Anemia due to chronic illness Anxiety and depression Atherosclerosis of [place] coronary artery of [place] heart without angina pectoris Back pain, chronic Bilateral edema of lower extremity Charcot's joint of right foot Chronic renal insufficiency Chronic ulcer of left foot with fat layer exposed Chronic ulcer of right foot with necrosis of muscle COVID-19 (08/28/21) Delayed wound healing Diabetes Diabetic foot ulcer associated with type 2 diabetes mellitus Diabetic infection of left foot Diabetic polyneuropathy Diabetic ulcer of right ankle Elevated troponin Essential (primary) hypertension GERD (gastroesophageal reflux disease) Hemoglobin A1c greater than 9.0% HLD (hyperlipidemia) Hyperparathyroidism, secondary renal Hypertension Iron deficiency anemia Ischemic cardiomyopathy Myocardial infarct Non-compliance Non-smoker Normocytic anemia NSTEMI (non-ST elevated myocardial infarction) (09/20/18) Obesity (BMI 30.0-34.9) Osteomyelitis of left foot RLS (restless legs syndrome) Stage 4 chronic kidney disease TIA (transient ischemic attack) 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 Ulcer of left foot with fat layer exposed Ulcer of left foot with muscle involvement without evidence of necrosis Ulcer of right lower extremity with fat layer exposed Home Medications atorvastatin 80 mg tablet 80 mg PO QHS #90 tablet 11/30/19 [Rx Last Taken 07/05/21] pramipexole 1.5 mg PO BID 09/12/20 [History Last Taken 07/06/21] isosorbide mononitrate 30 mg PO DAILY 03/03/21 [History Last Taken 07/04/21] oxycodone 5 mg PO BID PRN 07/07/21 [History Last Taken 07/06/21] paroxetine HCl 20 mg PO QHS 07/07/21 [History Last Taken 07/06/21] benzonatate 100 mg PO TID PRN PRN 09/02/21 [History Last Taken Unknown] bupropion HCl 150 mg PO.IVFORM DAILY 09/02/21 [History Last Taken Unknown] furosemide 40 mg PO DAILY 09/02/21 [History Last Taken Unknown] carvedilol [Coreg] 6.25 mg PO BID #60 tab 09/08/21 [Rx Last Taken Unknown] magnesium oxide [MagOx] 400 mg PO DAILY #30 tab 09/08/21 [Rx Last Taken Unknown] Ted (with collagen) 1 packet PO BIDCM #0 ea 09/14/21 [Rx Last Taken Unknown] clopidogrel 75 mg PO DAILY 10/25/21 [History Last Taken Unknown] HySept 1 applic TOPICAL DAILY 10/27/21 [History Last Taken Unknown] acetaminophen [Tylenol] 650 mg PO Q6H PRN PRN #0 tab 10/27/21 [Rx Last Taken Unknown] aspirin 81 mg PO BREAKFAST #0 tab 10/27/21 [Rx Last Taken Unknown] Lantus Solostar U-100 Insulin 30 unit SUBCUT DAILY 11/16/21 [History Last Taken Unknown] hydroxyzine HCl 25 mg PO DAILY 11/16/21 [History Last Taken Unknown] insulin lispro [Humalog KwikPen Insulin] 15 unit SUBCUT TIDCM 11/16/21 [History Last Taken Unknown] cyclobenzaprine 5 mg PO QHS #0 tab 12/23/21 [Rx Last Taken Unknown] gabapentin 300 mg BID 12/23/21 [History Last Taken Unknown] Allergy/AdvReac Type Severity Reaction Status Date / Time Penicillins Allergy swelling Verified 01/04/22 21:55 in throat vancomycin Allergy Itching Verified 01/04/22 21:55 metronidazole AdvReac Nausea Verified 01/04/22 21:55 oxycodone [From OxyContin] AdvReac Shortness Verified 01/04/22 21:55 of breath Family History Mother Diabetes CVA (cerebral vascular accident) Brother CAD (coronary artery disease) CABG X 3 Cancer testicular Diabetes Brother CAD (coronary artery disease) CABG X3 Diabetes Brother CAD (coronary artery disease) Stents Diabetes Sister CAD (coronary artery disease) CABG x 3 CVA (cerebral vascular accident) Diabetes Surgical History History of bilateral carpal tunnel release History of History of coronary artery stent placement (12/31/20) History of foot surgery History of rotator cuff surgery Social History household members: none number of children: 2 current occupational status: disabled Smoking Status: Never smoker alcohol intake: never substance use type: does not use caffeine: Yes Type: carbonated beverages Number of servings: 2 ROS ROS ED Constitutional Constitutional ED: Reports chills; Denies fever(s) Eyes Eyes: Denies blurry vision or change in vision ENT ENT ED: Denies rhinorrhea or sore throat Cardiovascular Cardiovascular: Denies chest pain or palpitations Respiratory/Chest Respiratory/Chest: Denies dyspnea Gastrointestinal Gastrointestinal: Denies abdominal pain or vomiting Genitourinary Genitourinary ED: Denies dysuria Musculoskeletal Musculoskeletal: Reports arthralgias Integumentary Reports other Details: Chronic lower extremity wounds Allergic/Immunologic Allergic/Immunologic ED: Denies urticaria EXAM Physical Exam Const Vital Signs: 01/04/22 21:53 01/05/22 00:31 01/05/22 02:00 Temperature 98 F 101.2 F H 99.6 F H Temperature Source Temporal Temporal Oral Pulse Rate 129 H Respiratory Rate 17 Blood Pressure 160/93 H 119/70 Blood Pressure Mean 115 86 Pulse Ox 100 Oxygen Delivery Method Room Air Positive well nourished and well developed General Appearance ED: well developed Eyes PERRL and EOMs intact bilaterally Neck supple Chest Wall inspection of chest normal and palpation of chest normal Resp normal respiratory effort and clear to auscultation bilaterally Cardio regular rhythm Rate: tachycardic GI non-tender Auscultation: hypoactive bowel sounds Palpation: soft Extremity Extremity Narrative: Patient has a 1 x 2 cm ulcerated lesion on the bottom of each foot. Wound edges are clean. No surrounding cellulitis. Neuro oriented x3 Sensorium / Orientation: alert Psych Mood & Affect: anxious MDM MDM MDM Narrative Medical decision making narrative: Patient initially ordered venous ultrasound of the lower legs as well as CBC, BMP, BNP. When nursing staff rechecked her vital signs she developed a temperature up to 101.6. She is given p.o. Tylenol. Lactic acid, cultures obtained. Urinalysis as well as COVID/influenza swabs ordered. Lab Data Attestation: I reviewed the patient's lab results. Labs: Laboratory Results - last 24 hr 01/05/22 01/05/22 01/05/22 00:20 00:20 00:20 WBC 16.5 H RBC 2.78 L Hgb 8.0 L Hct 24.8 L MCV 89.2 MCH 28.8 MCHC 32.3 RDW Std Deviation 44.9 H RDW Coeff of Fior 13.7 Plt Count 275 MPV 11.2 Immature Gran % (Auto) 0.800 Neut % (Auto) 90.1 H Lymph % (Auto) 3.6 L [place] % (Auto) 5.2 Eos % (Auto) 0.1 Baso % (Auto) 0.2 Absolute Neuts (auto) 14.9 H Absolute Lymphs (auto) 0.60 L Nucleated RBC % 0 Sodium 133 L Potassium 3.9 Chloride 101 Carbon Dioxide 22.0 Anion Gap 10 BUN 49 H Creatinine 2.95 H Estim Creat Clear Calc 19.93 Est GFR (MDRD) Af Amer 21 L Est GFR (MDRD) Non-Af 18 L BUN/Creatinine Ratio 16.6 Glucose 186 H Lactic Acid Calcium 8.1 L B-Natriuretic Peptide 2661.5 H Urine Color Urine Clarity Urine pH Ur Specific [place] Urine Protein Urine Glucose (UA) Urine Ketones Urine Occult Blood Urine Nitrite Urine Bilirubin Urine Urobilinogen Ur Leukocyte Esterase Urine RBC Urine WBC Ur Squamous Epith Cells Amorphous Sediment Urine Bacteria Urine Mucus 01/05/22 01/05/22 00:25 01:00 WBC RBC Hgb Hct MCV MCH MCHC RDW Std Deviation RDW Coeff of Fior Plt Count MPV Immature Gran % (Auto) Neut % (Auto) Lymph % (Auto) [place] % (Auto) Eos % (Auto) Baso % (Auto) Absolute Neuts (auto) Absolute Lymphs (auto) Nucleated RBC % Sodium Potassium Chloride Carbon Dioxide Anion Gap BUN Creatinine Estim Creat Clear Calc Est GFR (MDRD) Af Amer Est GFR (MDRD) Non-Af BUN/Creatinine Ratio Glucose Lactic Acid 1.7 Calcium B-Natriuretic Peptide Urine Color Yellow Urine Clarity Clear Urine pH 5.0 Ur Specific [place] 1.015 Urine Protein 500 H Urine Glucose (UA) 1000 H Urine Ketones Negative Urine Occult Blood 150 H Urine Nitrite Negative Urine Bilirubin Negative Urine Urobilinogen Normal Ur Leukocyte Esterase Negative Urine RBC 5-10 SEEN Urine WBC 0 SEEN Ur Squamous Epith Cells 0 SEEN Amorphous Sediment 2+ Urine Bacteria 2+ Urine Mucus 0 SEEN Radiography Chest X-Ray - ED: 1 View, Read by ED Physician and No Infiltrates Diagnostic Testing: Clinical Impression(s) from Imaging Studies Venous Duplex 01/04/22 22:20 IMPRESSION: Normal venous Doppler ultrasound of the bilateral lower extremities. Bilateral inguinal lymphadenopathy Electronically Signed: Travon CurtisDO at 23:50 EDT , Chest X-Ray 01/05/22 00:10 IMPRESSION: Normal x-ray examination of the chest. Electronically Signed: Travon CurtisDO at 0:51 EDT Reading Location ID and State: [facility] / [place] Tel , Service support , Treatment and Re-Evaluation Narrative: Venous ultrasound of the lower extremities reveals no evidence of DVT. CBC reveals white count of 16.5. Hemoglobin is 8 consistent with prior values. Chemistry studies reveal a creatinine of 2.95, slightly increased over her baseline. BNP is at 2600. Lactic acid is normal. Urinalysis shows 2+ bacteria but 0 white cells and no nitrates. This will be sent for culture. Influenza and Covid swabs are negative. At this time patient still complains of generalized weakness. She now tells me that she is had nausea and vomiting the last several days. She does have evidence of renal injury with significant leukocytosis. I will speak with hospitalist regarding observation and further evaluation. Addendum: When hospitalist went back into the room to evaluate patient, she now has erythema noted on the right foot. The area does feel warm when compared to left. This was not present when I unwrapped her wounds earlier in the course of her stay. Now that she appears to be developing cellulitis and wound infection she will be covered with Ancef which she has taken in the past. Patient does have multiple antibiotic allergies. Discharge Plan Dx/Rx/DC Orders Clinical Impression: SIRS (systemic inflammatory response syndrome), Cellulitis Disposition Disposition: Acute Care Hospital [facility]
--- NOTE | 2022-01-04 22:20 | US_ITS ---
STUDY: VENOUS DOPPLER ULTRASOUND - BILATERAL LOWER EXTREMITIES REASON FOR EXAM: Female, 56 years old. undefined -- SWELLING TECHNIQUE: Ultrasound evaluation of the deep vein system to include knutson-scale imaging and compression was performed. Knutson-scale imaging and Doppler sonographic evaluation, including duplex spectral analysis and qualitative color flow sonography, was performed. COMPARISON: None. FINDINGS: RIGHT LEG Common Femoral Vein: Normal compression, spontaneity and augmentation. Normal color Doppler. Common Femoral Vein/Greater Saphenous Junction: Normal compression, spontaneity and augmentation. Normal color Doppler. Deep Femoral Vein: Normal compression, spontaneity and augmentation. Normal color Doppler. Femoral Proximal: Normal compression, spontaneity and augmentation. Normal color Doppler. Femoral Middle: Normal compression, spontaneity and augmentation. Normal color Doppler. Femoral Distal: Normal compression, spontaneity and augmentation. Normal color Doppler. Popliteal Vein: Normal compression, spontaneity and augmentation. Normal color Doppler. Posterior Tibial Vein: Normal compression, spontaneity and augmentation. Normal color Doppler. Peroneal Vein: Normal compression, spontaneity and augmentation. Normal color Doppler. LEFT LEG Common Femoral Vein: Normal compression, spontaneity and augmentation. Normal color Doppler. Common Femoral Vein/Greater Saphenous Junction: Normal compression, spontaneity and augmentation. Normal color Doppler. Deep Femoral Vein: Normal compression, spontaneity and augmentation. Normal color Doppler. Femoral Proximal: Normal compression, spontaneity and augmentation. Normal color Doppler. Femoral Middle: Normal compression, spontaneity and augmentation. Normal color Doppler. Femoral Distal: Normal compression, spontaneity and augmentation. Normal color Doppler. Popliteal Vein: Normal compression, spontaneity and augmentation. Normal color Doppler. Posterior Tibial Vein: Normal compression, spontaneity and augmentation. Normal color Doppler. Peroneal Vein: Normal compression, spontaneity and augmentation. Normal color Doppler. Enlarged bilateral inguinal lymph nodes. Largest on the right measuring 5.2 x 4.7 x 1.9 cm US/Venous Duplex Imag/Sae Extrem IMPRESSION: Normal venous Doppler ultrasound of the bilateral lower extremities. Bilateral inguinal lymphadenopathy Electronically Signed: Travon Curtis DO at 23:50 EDT ,
[2022-01-05] VITALS (13 sets, daily range): BP systolic 92–132; BP diastolic 53–82; PULSE 76–102; RESP 16–19; TEMP 36.1–38.4; O2SAT 92–98; BMI 33.8
--- NOTE | 2022-01-05 00:10 | RAD_ITS ---
STUDY: X-RAY CHEST REASON FOR EXAM: Female, 56 years old. cough TECHNIQUE: Single AP portable view of the chest. COMPARISON: 12/15/2021 FINDINGS: The lungs are clear and expanded. There is no demonstrated pleural abnormality. Normal size heart. Normal mediastinum and elvie. Normal visualized pulmonary arteries. Normal visualized aortic arch and descending thoracic aorta. Normal visualized thoracic spine. Normal visualized ribs, clavicles, and shoulders. There is no demonstrated abnormality of the visualized soft tissue structures of the upper abdomen. RAD/Chest 1 View (Portable) IMPRESSION: Normal x-ray examination of the chest. Electronically Signed: Travon Curtis DO at 0:51 EDT ,
[2022-01-05 00:29] LABS: Absolute Neutrophil Count 14.9 X10^3/uL (2.0-7.7); Basophil# 0.03 X10^3/uL; Basophil% 0.2 % (0-1); Eosinophil# 0.01 X10^3/uL; Eosinophils% 0.1 % (0-5); Hematocrit 24.8 % (37-47); Lymphocyte % 3.6 % (19-41); Mean Corp Hgb Conc 32.3 g/dL (32-36); Mean Corpuscular Hgb 28.8 pg (27.0-32.0); Mean Corpuscular Volume 89.2 fL (81-99); Mean Platelet Vol. 11.2 fl (6.2-12.0); Monocyte# 0.85 X10^3/uL; Monocyte% 5.2 % (0-10); NRBC Flagged by Analyzer 0 % (0-5); Neutrophil # 14.86 X10^3/uL (2.7-7.7); Neutrophil % 90.1 % (47-70); POSITIVE DIFFERENTIAL YES; Platelet Count 275 K/mm3 (150-450); RBC Distribution Width CV 13.7 % (11.6-14.6); RBC Distribution Width SD 44.9 fl (35.1-43.9); Red Blood Count 2.78 M/mm3 (4.2-5.4); White Blood Count 16.5 K/mm3 (4.4-11.0)
[2022-01-05 00:34] LABS: Differential Indicated SCAN CRITERIA MET
[2022-01-05 00:47] LABS: Anion Gap 10 (5-15); BUN 49 mg/dL (7-18); BUN/Creat Ratio 16.6 RATIO (10-20); Calcium,Total 8.1 mg/dL (8.5-10.1); Chloride 101 mmol/L (98-107); Creatinine, Serum 2.95 mg/dL (0.55-1.02); EST Glomerular Filtration Rate 18 mL/min (>60); Est Glom Filt Rate - Afr Amer 21 mL/min (>60); Estimated Creatinine Clearance 19.93 ml/min; Glucose 186 mg/dL (74-106); Potassium 3.9 mmol/L (3.5-5.1); Sodium Level 133 mmol/L (136-145)
[2022-01-05 00:52] LABS: BNP,B-Type NATRIURETIC PEPTIDE 2661.5 pg/mL (0-100)
[2022-01-05] MEDS: Acetaminophen 500 MG Tablet 1000 MG PO (01:10)
[2022-01-05 01:32] LABS: Mucous, Urine 0 SEEN /hpf (<or=2+); Squamous Epithelial Cells - UA 0 SEEN /hpf (5-10); White Blood Cells 0 SEEN /hpf (0-5)
[2022-01-05 01:38] LABS: Glucose, Dipstick 1000 mg/dl (Normal); Ketone-Dipstick Negative (Negative); Leukocyte Esterase-Dipstick Negative /ul (Negative); Nitrite-Dipstick Negative (Negative); Occult Blood-Urine 150 /ul (Negative); Protein-Dipstick 500 mg/dl (Negative); Specific Gravity, Urine 1.015 (1.002-1.030); Urine Bilirubin Dipstick Negative (Negative); Urine Urobilinogen Normal (Normal)
[2022-01-05 01:40] LABS: Color, Urine Yellow (Yellow); Urine Clarity Clear (Clear)
[2022-01-05 01:51] LABS: Lactic Acid 1.7 mmol/L (0.4-1.9)
[2022-01-05 01:54] LABS: Amorphous Sediment 2+; Bacteria 2+ /hpf (None Seen); Red Blood Cells-Urine 5-10 SEEN /hpf (0-5)
--- NOTE | 2022-01-05 03:26 | HP.PCM.HOS_ITS ---
[facility] - General General Date of Admission: 01/05/22 HPI Narrative DIONY ROCHA, is a 56 F with a significant history of diabetes mellitus who presents to the emergency department with bilateral legs are swelling with right worse than left. The bilateral leg swelling started about 3 days ago. She has tried wrapping her legs without any improvement in her symptoms. On the day of presentation she noticed pain in her legs. Also on the day of presentation she noticed erythema in her right lower leg and in her right foot. Further she reports nausea with multiple episodes of vomiting. [facility] and is requesting a SNF placement after discharge from the hospital. On the same day of presentation she saw her pain management doctor, Dr. Matute. The pain management appointment was a follow-up after she had received shots in her back and developed difficulty with ambulation and episodes of falling. She reported that at the pain management appointment she was told that she may have surgery at her back. [facility] Medical History Acquired varus deformity of left foot Acquired varus deformity of right foot Amputation foot, bilat Anemia due to chronic illness Anxiety and depression Atherosclerosis of [place] coronary artery of [place] heart without angina pectoris Back pain, chronic Bilateral edema of lower extremity Charcot's joint of right foot Chronic renal insufficiency Chronic ulcer of left foot with fat layer exposed Chronic ulcer of right foot with necrosis of muscle COVID-19 (08/28/21) Delayed wound healing Diabetes Diabetic foot ulcer associated with type 2 diabetes mellitus Diabetic infection of left foot Diabetic polyneuropathy Diabetic ulcer of right ankle Elevated troponin Essential (primary) hypertension GERD (gastroesophageal reflux disease) Hemoglobin A1c greater than 9.0% HLD (hyperlipidemia) Hyperparathyroidism, secondary renal Hypertension Iron deficiency anemia Ischemic cardiomyopathy Myocardial infarct Non-compliance Non-smoker Normocytic anemia NSTEMI (non-ST elevated myocardial infarction) (09/20/18) Obesity (BMI 30.0-34.9) Osteomyelitis of left foot RLS (restless legs syndrome) Stage 4 chronic kidney disease TIA (transient ischemic attack) 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 Ulcer of left foot with fat layer exposed Ulcer of left foot with muscle involvement without evidence of necrosis Ulcer of right lower extremity with fat layer exposed Home Medications atorvastatin 80 mg tablet 80 mg PO QHS #90 tablet 11/30/19 [Rx Last Taken 07/05/21] pramipexole 1.5 mg PO BID 09/12/20 [History Last Taken 07/06/21] isosorbide mononitrate 30 mg PO DAILY 03/03/21 [History Last Taken 07/04/21] oxycodone 5 mg PO BID PRN 07/07/21 [History Last Taken 07/06/21] paroxetine HCl 20 mg PO QHS 07/07/21 [History Last Taken 07/06/21] benzonatate 100 mg PO TID PRN PRN 09/02/21 [History Last Taken Unknown] bupropion HCl 150 mg PO.IVFORM DAILY 09/02/21 [History Last Taken Unknown] furosemide 40 mg PO DAILY 09/02/21 [History Last Taken Unknown] carvedilol [Coreg] 6.25 mg PO BID #60 tab 09/08/21 [Rx Last Taken Unknown] magnesium oxide [MagOx] 400 mg PO DAILY #30 tab 09/08/21 [Rx Last Taken Unknown] Ted (with collagen) 1 packet PO BIDCM #0 ea 09/14/21 [Rx Last Taken Unknown] clopidogrel 75 mg PO DAILY 10/25/21 [History Last Taken Unknown] HySept 1 applic TOPICAL DAILY 10/27/21 [History Last Taken Unknown] acetaminophen [Tylenol] 650 mg PO Q6H PRN PRN #0 tab 10/27/21 [Rx Last Taken Unknown] aspirin 81 mg PO BREAKFAST #0 tab 10/27/21 [Rx Last Taken Unknown] Lantus Solostar U-100 Insulin 30 unit SUBCUT DAILY 11/16/21 [History Last Taken Unknown] hydroxyzine HCl 25 mg PO DAILY 11/16/21 [History Last Taken Unknown] insulin lispro [Humalog KwikPen Insulin] 15 unit SUBCUT TIDCM 11/16/21 [History Last Taken Unknown] cyclobenzaprine 5 mg PO QHS #0 tab 12/23/21 [Rx Last Taken Unknown] gabapentin 300 mg BID 12/23/21 [History Last Taken Unknown] Allergy/AdvReac Type Severity Reaction Status Date / Time Penicillins Allergy swelling Verified 01/04/22 21:55 in throat vancomycin Allergy Itching Verified 01/04/22 21:55 metronidazole AdvReac Nausea Verified 01/04/22 21:55 oxycodone [From OxyContin] AdvReac Shortness Verified 01/04/22 21:55 of breath Family History Mother Diabetes CVA (cerebral vascular accident) Brother CAD (coronary artery disease) CABG X 3 Cancer testicular Diabetes Brother CAD (coronary artery disease) CABG X3 Diabetes Brother CAD (coronary artery disease) Stents Diabetes Sister CAD (coronary artery disease) CABG x 3 CVA (cerebral vascular accident) Diabetes Surgical History History of bilateral carpal tunnel release History of History of coronary artery stent placement (12/31/20) History of foot surgery History of rotator cuff surgery Social History household members: none number of children: 2 current occupational status: disabled Smoking Status: Never smoker alcohol intake: never substance use type: does not use caffeine: Yes Type: carbonated beverages Number of servings: 2 ROS ROS Narrative Constitutional: Reports chills, rigors, fatigue and anorexia. Eyes: Denies blurry vision, change in eye color, change in vision, discharge from eye(s), double vision, erythema, eye pain, loss of vision or other HEENT: Denies abnormal hearing, dysphagia, ear pain, epistaxis, headache(s), hearing loss, nasal congestion, nasal discharge, post nasal drip, sinus pressure, sore throat or other Cardiovascular: Denies chest pain or palpitations. Swelling of bilateral lower extremities. Respiratory/Chest: Denies cough, excessive phlegm production, shortness of breath with exertion and wheezing Gastrointestinal: Reports nausea and vomiting. Denies abdominal pain, coffee ground emesis, constipation, diarrhea. Genitourinary: Denies burning urination, difficulty urinating, dysuria, he maturia, nocturia, urinary frequency, urinary hesitancy, urinary incontinence, urinary urgency or other Musculoskeletal: Reports chronic back pain. Reports the pain in bilateral legs. Neurologic: Denies abnormal gait, abnormal speech, confusion, disequilibrium, dizziness, focal weakness, headache(s), numbness, paresthesias, seizure-like activity, seizures, syncope, tingling, tremor(s) or other Psychiatric: Denies homicidal ideation, suicidal ideation or other Endocrinology: Denies change in body appearance, cold intolerance, excessive sweating, heat intolerance, polydipsia, polyuria or other Hematologic/Lymphatic: Denies anemia, easy bleeding, easy bruising, lymphadenopathy or other Integumentary: Erythema of right lower leg and right foot. Wounds at the dorsal side of bilateral legs . Allergic/Immunologic: Denies rhinitis, hives, eczema, or other Vital Signs Vital Signs Vital Signs: 01/04/22 21:53 01/05/22 00:31 01/05/22 02:00 Temperature 98 F 101.2 F H 99.6 F H Temperature Source Temporal Temporal Oral Pulse Rate 129 H Respiratory Rate 17 Blood Pressure 160/93 H 119/70 Blood Pressure Mean 115 86 Pulse Ox 100 Oxygen Delivery Method Room Air Weight Weight: 90.718 kg Body Mass Index (BMI) 32.3 Physical Exam Narrative Physical exam: General: Well-nourished, well-developed. Head: Normocephalic, atraumatic, no tenderness Eyes: Vision is grossly intact. EOMI ENT, no trauma, mildly dry mucous membranes, no rhinorrhea Neck: Nontender, full range of motion. CVS: Regular rate and rhythm. S1-S2 present. No murmur, gallop or rub. Respiratory : clear to auscultation bilaterally, chest wall nontender, no wheezing Abdomen: Soft, nontender, nondistended, normal bowel sounds, no masses : Deferred Back: Nontender, no CVA tenderness, no midline spinal tenderness, deformities, step-offs Extremities: Pitting Edema of bilateral lower legs and feet with right worse than left. Nontender full range of motion, no trauma Skin: Erythema of right lower leg and right foot. Ulcer at dorsal side of bilateral feet. Normal color. Neuro: Alert, oriented, cranial nerves II through XII grossly intact. Psychiatry: Depressed. Not anxious. Results Lab / Micro Data Result Diagrams: 01/05/22 00:20 01/05/22 00:20 Labs: Laboratory Results - last 24 hr 01/05/22 00:20: WBC 16.5 H, RBC 2.78 L, Hgb 8.0 L, Hct 24.8 L, MCV 89.2, MCH 28.8, MCHC 32.3, RDW Std Deviation 44.9 H, RDW Coeff of Fior 13.7, Plt Count 275, MPV 11.2, Immature Gran % (Auto) 0.800, Neut % (Auto) 90.1 H, Lymph % (Auto) 3.6 L, [place] % (Auto) 5.2, Eos % (Auto) 0.1, Baso % (Auto) 0.2, Absolute Neuts (auto) 14.9 H, Absolute Lymphs (auto) 0.60 L, Nucleated RBC % 0 01/05/22 00:20: Sodium 133 L, Potassium 3.9, Chloride 101, Carbon Dioxide 22.0, Anion Gap 10, BUN 49 H, Creatinine 2.95 H, Estim Creat Clear Calc 19.93, Est GFR (MDRD) Af Amer 21 L, Est GFR (MDRD) Non-Af 18 L, BUN/Creatinine Ratio 16.6, Glucose 186 H, Calcium 8.1 L 01/05/22 00:20: B-Natriuretic Peptide 2661.5 H 01/05/22 00:25: Urine Color Yellow, Urine Clarity Clear, Urine pH 5.0, Ur Specific [place] [address] 1.015, Urine Protein 500 H, Urine Glucose (UA) 1000 H, Urine Ketones Negative, Urine Occult Blood 150 H, Urine Nitrite Negative, Urine Bilirubin Negative, Urine Urobilinogen Normal, Ur Leukocyte Esterase Negative, Urine RBC 5-10 SEEN, Urine WBC 0 SEEN, Ur Squamous Epith Cells 0 SEEN, Amorphous Sediment 2+, Urine Bacteria 2+, Urine Mucus 0 SEEN 01/05/22 01:00: Lactic Acid 1.7 Micro: Microbiology 01/05/22 02:23 Nasal Secretion SARS-CoV-2 & FLU Antigen (Rapid) - Final Radiology Impression Venous Duplex 01/04/22 22:20 IMPRESSION: Normal venous Doppler ultrasound of the bilateral lower extremities. Bilateral inguinal lymphadenopathy Electronically Signed: Travon Curtis DO at 23:50 EDT , Chest X-Ray 01/05/22 00:10 IMPRESSION: Normal x-ray examination of the chest. Electronically Signed: Travon Curtis DO at 0:51 EDT , Assessment & Plan Assessment/Plan (1) Cellulitis: QUALIFIERS: Laterality: right Site of cellulitis: extremity Site of cellulitis of extremity: lower extremity Qualified Code(s): L03.115 - Cellulitis of right lower limb PLAN: Cellulitis Venous Doppler with no DVT but with bilateral inguinal lymphadenopathy. Chest x-ray was visualized and independently interpreted and I agree with radiologist interpretation of normal chest x-ray. Patient meets SIRS criteria with T-max of 101.2F; white count of 16.5 with neutrophilia of 90.1% and lymphopenia of 3.6%. Highest pulse rate of 129 at the ED. qSOFA is 0 sepsis ruled out. Lactic acid is 1.7. Review of record showed that patient had a coagulase negative staph on wound culture on 09/17/2021. Cefazolin started emergency department and continued. Blood culture and wound culture was obtained at the emergency department; follow. Zofran iv as needed for nausea and vomiting. FELI on CKD stage IIIb CKD like secondary diabetic nephropathy Creatinine on presentation was 2.95. Baseline creatinine is 1.7-2.3. BNP is elevated at 2,661.5. BUN is elevated at 49. BUN over creatinine is 16.6 in the setting of CKD stage IIIb. Mucous membrane is slightly dry. With nausea and multiple episodes of vomiting Elevated BUN could be secondary to FELI. Will start patient cautiously on normal saline 50 mL's per hour. Avoid nephrotoxic's. Trend BMP. Bilateral lower extremity swelling [place] wrap to bilateral legs. Bilateral Foot ulcers Wound care consult. Diabetes mellitus Blood glucose not within goal. Basal insulin continued. Accu-Chek with correction scale insulin ordered. DVT prophylaxis: Subcutaneous heparin ordered Charges/Coding Visit Charges OBSV E&M: 09525 Initial observation care L3
[2022-01-05] MEDS: oxyCODONE 5 MG Tablet PO ×2 (04:12→11:35)
--- NOTE | 2022-01-05 04:17 | ED.RN ---
Pharm is sending the atb down
[2022-01-05] MEDS: Cefazolin 2 GM in 0.9% Normal Saline 100 ML IV (04:28)
[2022-01-05] MEDS: 0.9% Normal Saline 1,000 ML 50 ML IV (05:11)
[2022-01-05] MEDS: Heparin Injection (Vial) 5,000 UNIT/ML VIAL 5000 UNIT SC ×3 (05:12→21:51)
[2022-01-05 05:50] LABS: Absolute Lymphocyte Count 0.73 X10^3/uL (0.83-4.51); Absolute Neutrophil Count 12.5 X10^3/uL (2.0-7.7); Basophil# 0.03 X10^3/uL; Basophil% 0.2 % (0-1); Eosinophil# 0.01 X10^3/uL; Eosinophils% 0.1 % (0-5); Hematocrit 22.5 % (37-47); Hemoglobin 7.4 g/dL (12.0-15.0); Lymphocyte # 0.73 X10^3/ul (0.83-4.51); Lymphocyte % 5.1 % (19-41); Mean Corp Hgb Conc 32.9 g/dL (32-36); Mean Corpuscular Hgb 28.6 pg (27.0-32.0); Mean Corpuscular Volume 86.9 fL (81-99); Mean Platelet Vol. 11.7 fl (6.2-12.0); Monocyte# 0.89 X10^3/uL; Monocyte% 6.2 % (0-10); NRBC Flagged by Analyzer 0 % (0-5); Neutrophil # 12.54 X10^3/uL (2.7-7.7); Neutrophil % 87.3 % (47-70); POSITIVE MORPHOLOGY YES; Platelet Count 209 K/mm3 (150-450); RBC Distribution Width CV 13.7 % (11.6-14.6); RBC Distribution Width SD 43.5 fl (35.1-43.9); Red Blood Count 2.59 M/mm3 (4.2-5.4); White Blood Count 14.4 K/mm3 (4.4-11.0)
[2022-01-05 05:56] LABS: Differential Indicated SCAN CRITERIA MET
[2022-01-05 06:11] LABS: Anion Gap 9 (5-15); BUN 50 mg/dL (7-18); Calcium,Total 7.9 mg/dL (8.5-10.1); Chloride 101 mmol/L (98-107); Creatinine, Serum 2.94 mg/dL (0.55-1.02); EST Glomerular Filtration Rate 18 mL/min (>60); Est Glom Filt Rate - Afr Amer 21 mL/min (>60); Glucose 207 mg/dL (74-106); Potassium 3.9 mmol/L (3.5-5.1); Sodium Level 132 mmol/L (136-145)
[2022-01-05] MEDS: Insulin Lispro 100 UNIT/ML INSULN.PEN SC ×4 (06:38→21:56)
[2022-01-05 06:41] LABS: Bedside Glucose 216 mg/dL (74-106)
[2022-01-05 06:56] LABS: Differential Comment SCANNED
[2022-01-05 07:06] LABS: Differential Comment SCANNED
[2022-01-05] MEDS: Glucerna Shake 120 ML LIQUID PO ×2 (08:26→17:17)
[2022-01-05] MEDS: Acetaminophen 325 MG Tablet 650 MG PO ×2 (08:26→18:10)
--- NOTE | 2022-01-05 10:57 | PN.HOSP_ITS ---
Subjective Subjective Follow-up on acute on chronic pain: Patient was seen and examined. She complains of severe pain. Denies any new com plaints. Objective Data Objective Data Vital Signs: Vital Signs Temp Pulse Resp BP Pulse Ox 97.5 F L 93 16 119/59 L 96 01/05/22 07:53 01/05/22 07:53 01/05/22 07:53 01/05/22 07:53 01/05/22 07:53 Oxygen Delivery Method Room Air Weight: 95.2 kg Body Mass Index (BMI) 33.8 Intake & Output: Intake and Output for Last 24 Hours 01/03/22 01/04/22 01/05/22 23:59 23:59 23:59 Intake Total 110 / 110 Balance 110 / 110 Lab / Micro Data Result Diagrams: 01/05/22 05:39 01/05/22 05:39 Labs: Laboratory Results - last 24 hr 01/05/22 00:20: WBC 16.5 H, RBC 2.78 L, Hgb 8.0 L, Hct 24.8 L, MCV 89.2, MCH 28.8, MCHC 32.3, RDW Std Deviation 44.9 H, RDW Coeff of Fior 13.7, Plt Count 275, MPV 11.2, Immature Gran % (Auto) 0.800, Neut % (Auto) 90.1 H, Lymph % (Auto) 3.6 L, [place] % (Auto) 5.2, Eos % (Auto) 0.1, Baso % (Auto) 0.2, Absolute Neuts (auto) 14.9 H, Absolute Lymphs (auto) 0.60 L, Nucleated RBC % 0, Differential Comment SCANNED 01/05/22 00:20: Sodium 133 L, Potassium 3.9, Chloride 101, Carbon Dioxide 22.0, Anion Gap 10, BUN 49 H, Creatinine 2.95 H, Estim Creat Clear Calc 19.93, Est GFR (MDRD) Af Amer 21 L, Est GFR (MDRD) Non-Af 18 L, BUN/Creatinine Ratio 16.6, Glucose 186 H, Calcium 8.1 L 01/05/22 00:20: B-Natriuretic Peptide 2661.5 H 01/05/22 00:25: Urine Color Yellow, Urine Clarity Clear, Urine pH 5.0, Ur Specific [place] 1.015, Urine Protein 500 H, Urine Glucose (UA) 1000 H, Urine Ketones Negative, Urine Occult Blood 150 H, Urine Nitrite Negative, Urine Bilirubin Negative, Urine Urobilinogen Normal, Ur Leukocyte Esterase Negative, Urine RBC 5-10 SEEN, Urine WBC 0 SEEN, Ur Squamous Epith Cells 0 SEEN, Amorphous Sediment 2+, Urine Bacteria 2+, Urine Mucus 0 SEEN 01/05/22 01:00: Lactic Acid 1.7 01/05/22 05:39: WBC 14.4 H, RBC 2.59 L, Hgb 7.4 L, Hct 22.5 L, MCV 86.9, MCH 28.6, MCHC 32.9, RDW Std Deviation 43.5, RDW Coeff of Fior 13.7, Plt Count 209, MPV 11.7, Immature Gran % (Auto) 1.100 H, Neut % (Auto) 87.3 H, Lymph % (Auto) 5.1 L, [place] % (Auto) 6.2, Eos % (Auto) 0.1, Baso % (Auto) 0.2, Absolute Neuts (auto) 12.5 H, Absolute Lymphs (auto) 0.73 L, Nucleated RBC % 0, Differential Comment SCANNED 01/05/22 05:39: Sodium 132 L, Potassium 3.9, Chloride 101, Carbon Dioxide 22.0, Anion Gap 9, BUN 50 H, Creatinine 2.94 H, Estim Creat Clear Calc 20.00, Est GFR (MDRD) Af Amer 21 L, Est GFR (MDRD) Non-Af 18 L, BUN/Creatinine Ratio 17.0, Glucose 207 H, Calcium 7.9 L 01/05/22 06:34: POC Glucose 216 H Micro: Microbiology 01/05/22 01:15 Wound - Left Foot Gram Stain - Final 01/05/22 01:15 Wound - Right Foot Gram Stain - Final 01/05/22 02:23 Nasal Secretion SARS-CoV-2 & FLU Antigen (Rapid) - Final Radiography Diagnostic Testing: Radiology Impression Venous Duplex 01/04/22 22:20 IMPRESSION: Normal venous Doppler ultrasound of the bilateral lower extremities. Bilateral inguinal lymphadenopathy Electronically Signed: Travon Curtis DO at 23:50 EDT , Chest X-Ray 01/05/22 00:10 IMPRESSION: Normal x-ray examination of the chest. Electronically Signed: Travon Curtis DO at 0:51 EDT , Physical Exam Narrative Physical exam: General: Well-nourished, well-developed. Head: Normocephalic, atraumatic, no tenderness Eyes: Vision is grossly intact. EOMI ENT, no trauma, mildly dry mucous membranes, no rhinorrhea Neck: Nontender, full range of motion. CVS: Regular rate and rhythm. S1-S2 present. No murmur, gallop or rub. Respiratory : clear to auscultation bilaterally, chest wall nontender, no wheezing Abdomen: Soft, nontender, nondistended, normal bowel sounds, no masses : Deferred Back: Nontender, no CVA tenderness, no midline spinal tenderness, deformities, step-offs Extremities: Pitting Edema of bilateral lower legs and feet with right worse than left. Nontender full range of motion, no trauma Skin: Erythema of right lower leg and right foot. Ulcer at dorsal side of bilateral feet. Normal color. Neuro: Alert, oriented, cranial nerves II through XII grossly intact. Psychiatry: Depressed. Not anxious. Assessment & Plan Assessment/Plan (1) Cellulitis: QUALIFIERS: Site of cellulitis: extremity Site of cellulitis of extremity: lower extremity Laterality: right Qualified Code(s): L03.115 - Cellulitis of right lower limb PLAN: 1. Acute cellulitis of lower extremities, continue on IV cefazolin Acute DVT ruled out 2. Anemia, hemoglobin 7.8, dropped from 8.0 Will trend and check iron stores 3. Hyponatremia, sodium is 132, will continue to monitor 4. FELI on CKD stage IIIb, creatinine appears unchanged Baseline is between 1.7-2.3 Continue to trend lab 5. Type II DM, blood sugar fairly controlled we will continue to monitor with insulin sliding scale with blood glucose checks 6. DVT prophylaxis - Heparin SC Charges/Coding Visit Charges Inpatient E&M: 31352 Subs Hosp L2
--- NOTE | 2022-01-05 11:09 | WOUNDNOTE ---
wound photo: left foot
--- NOTE | 2022-01-05 11:09 | WOUNDNOTE ---
wound photo: right foot
--- NOTE | 2022-01-05 11:10 | WOUNDNOTE ---
wound photo: right foot
[2022-01-05 11:26] LABS: Bedside Glucose 233 mg/dL (74-106)
[2022-01-05] MEDS: Gabapentin 300 MG Capsule PO ×2 (11:34→22:35)
--- NOTE | 2022-01-05 11:39 | CASEMGMT ---
Per notes, pt would like to go to SNF at discharge. Pt provided a list of SNF providers including quality and resource use data and consistent with the pt's preferred geographic region, medical needs, and insurance network. Pt states she would like to go to [facility] at discharge. Colby BOYKIN aware, voices understanding. Mary Ann IGLESIAS CM
--- NOTE | 2022-01-05 12:11 | CASEMGMT ---
LUCRETIA faxed referral to [facility]. LUCRETIA called Cassie and left a voice mail regarding referral. Kamilla Tinsley [employer] FLEX
[2022-01-05] MEDS: Insulin Lispro 100 UNIT/ML INSULN.PEN 15 UNIT SC ×2 (13:50→17:18)
--- NOTE | 2022-01-05 14:49 | CASEMGMT ---
This RN BEKA to room with LOPEZ form, explanation done-pt voices understanding, and signs LOPEZ form. Original to chart and copy to pt. Pt voices no further questions/concerns/needs. SStaten KELSIE CM
--- NOTE | 2022-01-05 15:48 | CASEMGMT ---
Per Cassie at [facility], they can accept pt and are starting precert. Pt updated, voices understanding. SStmichael IGLESIAS CM
[2022-01-05 16:36] LABS: Bedside Glucose 286 mg/dL (74-106)
[2022-01-05] MEDS: Furosemide 40 MG/4 ML Vial IV (18:10)
[2022-01-05 18:22] LABS: Ferritin 217 ng/mL (8-252); Iron 12 ug/dL (50-170); Iron Binding Capacity,Total 154 ug/dL (250-450); PERCENT IRON SATURATION 7.8 % (15.0-55.0)
[2022-01-05] MEDS: Cefazolin 1 GM/50 ML BAG IV (21:54)
[2022-01-05] MEDS: Pramipexole Di-HCl 0.5 MG Tablet 1.5 MG PO (22:00)
[2022-01-05] MEDS: Paroxetine 20 MG Tablet PO (22:00)
[2022-01-05] MEDS: Carvedilol 6.25 MG Tablet PO (22:02)
[2022-01-05] MEDS: Atorvastatin Calcium 80 MG Tablet PO (22:02)
[2022-01-05 22:16] LABS: Bedside Glucose 219 mg/dL (74-106)
[2022-01-05] MEDS: MELATONIN 10 MG TABLET PO (22:36)
[2022-01-05] MEDS: cycloBENZAPRine HCl 5 MG TABLET PO (22:40)
--- NOTE | 2022-01-05 22:41 | NURSING ---
Pt is alert, crying, moaning at this time. Medications that were [id number] held d/t lethargy given now since pt is awake.
[2022-01-06] VITALS (13 sets, daily range): BP systolic 85–111; BP diastolic 47–85; PULSE 70–84; RESP 14–23; TEMP 36.4–37.6; O2SAT 91–100
[2022-01-06] MEDS: Acetaminophen 325 MG Tablet 650 MG PO ×2 (00:25→16:49)
[2022-01-06] MEDS: Heparin Injection (Vial) 5,000 UNIT/ML VIAL 5000 UNIT SC ×3 (05:37→21:39)
[2022-01-06] MEDS: Benzonatate 100 MG Capsule PO (05:37)
[2022-01-06] MEDS: oxyCODONE 5 MG Tablet PO (06:09)
[2022-01-06] MEDS: Senna/Docusate Sodium 1 Tablet 2 TABLET PO ×2 (06:09→11:12)
[2022-01-06 06:35] LABS: Absolute Lymphocyte Count 0.75 X10^3/uL (0.83-4.51); Absolute Neutrophil Count 11.1 X10^3/uL (2.0-7.7); Basophil# 0.02 X10^3/uL; Basophil% 0.2 % (0-1); Eosinophil# 0.24 X10^3/uL; Eosinophils% 1.9 % (0-5); Hematocrit 22.8 % (37-47); Hemoglobin 7.2 g/dL (12.0-15.0); Lymphocyte # 0.75 X10^3/ul (0.83-4.51); Lymphocyte % 5.9 % (19-41); Mean Corp Hgb Conc 31.6 g/dL (32-36); Mean Corpuscular Hgb 28.9 pg (27.0-32.0); Mean Corpuscular Volume 91.6 fL (81-99); Mean Platelet Vol. 12.9 fl (6.2-12.0); Monocyte# 0.55 X10^3/uL; Monocyte% 4.3 % (0-10); NRBC Flagged by Analyzer 0 % (0-5); Neutrophil # 11.11 X10^3/uL (2.7-7.7); Neutrophil % 87.2 % (47-70); POSITIVE MORPHOLOGY YES; Platelet Count 212 K/mm3 (150-450); RBC Distribution Width CV 14.2 % (11.6-14.6); RBC Distribution Width SD 47.9 fl (35.1-43.9); Red Blood Count 2.49 M/mm3 (4.2-5.4); White Blood Count 12.7 K/mm3 (4.4-11.0)
[2022-01-06 06:40] LABS: Differential Indicated SCAN CRITERIA MET
[2022-01-06 07:01] LABS: ALB/GLOB Ratio 0.3 RATIO (0.9-2.4); AST(SGOT) 48 U/L (15-37); Alanine Aminotransfer ALT/SGPT 29 U/L (13-56); Albumin, Serum 1.3 g/dL (3.2-5.0); Alkaline Phosphatase 405 U/L (45-117); Anion Gap 7 (5-15); BUN 67 mg/dL (7-18); BUN/Creat Ratio 19.3 RATIO (10-20); Calcium,Total 7.5 mg/dL (8.5-10.1); Chloride 101 mmol/L (98-107); Creatinine, Serum 3.48 mg/dL (0.55-1.02); EST Glomerular Filtration Rate 14 mL/min (>60); Est Glom Filt Rate - Afr Amer 18 mL/min (>60); Globulin 4.9 g/dL (2.2-4.2); Glucose 218 mg/dL (74-106); Potassium 3.8 mmol/L (3.5-5.1); Protein, Total 6.2 g/dL (6.4-8.2); Sodium Level 131 mmol/L (136-145)
[2022-01-06 07:10] LABS: Differential Comment SCANNED
[2022-01-06 07:50] LABS: Bedside Glucose 211 mg/dL (74-106)
[2022-01-06] MEDS: Insulin Lispro 100 UNIT/ML INSULN.PEN 15 UNIT SC (09:22)
[2022-01-06] MEDS: Insulin Lispro 100 UNIT/ML INSULN.PEN SC ×4 (09:22→21:46)
[2022-01-06] MEDS: Insulin Glargine-YFGN 100 UNIT/ML Pen 30 UNIT SC (09:23)
[2022-01-06] MEDS: Gabapentin 300 MG Capsule PO (09:26)
[2022-01-06] MEDS: Clopidogrel Bisulfate 75 MG Tablet PO (09:26)
[2022-01-06] MEDS: hydrOXYzine PAM 25 MG Capsule PO (09:26)
[2022-01-06] MEDS: buPROPion (XL) 150 MG TABLET.XL PO (09:26)
[2022-01-06] MEDS: Furosemide 40 MG/4 ML Vial IV (09:42)
[2022-01-06] MEDS: Pramipexole Di-HCl 0.5 MG Tablet 1.5 MG PO (09:42)
[2022-01-06] MEDS: Cefazolin 1 GM/50 ML BAG IV (10:11)
--- NOTE | 2022-01-06 11:05 | ECHOD_ITS ---
Version 2 Reason For Study: Staph Aureus Procedure This was a 2D Doppler, Color Flow transthoracic echocardiogram. Patient scanned supine due to severe pain in legs, hips and back. Exam performed portable in patient room. Left Ventricle Normal LV size. The estimated ejection fraction is 55 %. Diastolic function is indeterminate. No regional wall motion abnormalities noted. Right Ventricle Normal RV size. Normal systolic function. Atria Normal left atrium. Normal right atrium. No doppler evidence for ASD. Mitral Valve There is no mitral valve stenosis. Trivial mitral valve insufficiency. Tricuspid Valve There is no tricuspid stenosis. Trivial tricuspid valve insufficiency. Pulmonary artery systolic pressure is 30-35 mmHg. Aortic Valve Trisinus/trileaflet aortic valve. There is no aortic stenosis. No aortic valve insufficiency. Pulmonic Valve There is no pulmonic valvular stenosis. No pulmonic valve insufficiency. Great Vessels Normal aortic root. Pericardium/Pleural No pericardial effusion. MMode/2D Measurements & Calculations LVIDd: 4.9 cm IVSd: 1.1 cm LA dimension: 3.9 cm LVIDs: 3.8 cm LVPWd: 1.4 cm RVDd: 3.9 cm FS: 20.9 % LAV(MOD-bp): 46.5 ml LA A4 area: 17.1 cm2 RA A4 area: 12.5 cm2 LAV(MOD-bp) Indexed: 22.8 ml/m2 LAV(MOD-sp2): 43.4 ml LAV(MOD-sp4): 43.3 ml Time Measurements MV dec time: 0.22 sec Doppler Measurements & Calculations MV E max rhys: 113.6 cm/sec Lat Peak E' Rhys: 6.6 cm/sec Med Peak E' Rhys: 5.0 cm/sec MV A max rhys: 86.4 cm/sec E/E' lat: 17.1 E/E' med: 22.9 MV E/A: 1.3 MV V2 max: 133.3 cm/sec MV P1/2t max rhys: 133.9 cm/sec Ao V2 max: 142.3 cm/sec MV max P.1 mmHg MV P1/2t: 78.0 msec Ao max P.1 mmHg MV V2 mean: 75.3 cm/sec MV dec slope: 502.7 cm/sec2 MV mean P.6 mmHg MVA(P1/2t): 2.8 cm2 MV V2 VTI: 35.3 cm LV V1 max: 102.3 cm/sec PA V2 max: 102.1 cm/sec TR max rhys: 268.6 cm/sec LV V1 max P.2 mmHg TR max P.9 mmHg ECHO/Echo Complete Interpretation Summary The estimated ejection fraction is 55 %. Diastolic function is indeterminate. Trivial mitral valve insufficiency. No significant valvular vegetations seen Ordering Physician: Annie Steven Referring Physician: MD Jeaneth Raúl Performed By: Juancarlos Sands RCS
--- NOTE | 2022-01-06 12:13 | MRI_ITS ---
EXAM: MR RIGHT LOWER EXTREMITY WITHOUT INTRAVENOUS CONTRAST, FOOT CLINICAL INDICATION: bilateral foot wound, prev mri 03/04/21 TECHNIQUE: Multiplanar and multisequence MR images of the right foot without intravenous contrast. This report was created using WiWide report generation technology. COMPARISON: Mar 04 2021 7:07pm FINDINGS: LIGAMENTS: MEDIAL COLLATERAL: Unremarkable. Intact. LATERAL COLLATERAL: Unremarkable. Intact. LISFRANC: Unremarkable. Intact. TENDONS: FLEXOR: Unremarkable. Intact. EXTENSOR: Unremarkable. Intact. PERONEAL: Unremarkable. Intact. TIBIALIS ANTERIOR: Unremarkable. Intact. TIBIALIS POSTERIOR: Unremarkable. Intact. MUSCLES: Unremarkable. No edema or myositis. FLUID: Unremarkable. No joint effusion. PLANTAR FASCIA: Unremarkable. Intact. BONES/JOINTS: There is increased arthropathy of the navicular-cuneiform articulations and intercuneiform articulations since the prior study with increased fluid. There is stable cystic change of the proximal cuboid at the calcaneocuboid articulation . There is bone edema at the navicular-cuneiform articulations. Normal forefoot alignment. No fracture. OTHER SOFT TISSUES: Soft tissue plantar ulcer with fluid around the fifth metatarsal without interval development of bone edema of the partially amputated fifth metatarsal. The amount of fluid is decreased but still can signify an abscess. However, there is sever motion artifact making it difficult to assess. OTHER FINDINGS: Moderate distal peroneal tenosynovitis. Moderate peroneus longus tenosynovitis. MRI/Lower Ext/No Jt/w/o IMPRESSION: 1. Moderate distal peroneal tenosynovitis. 2. Moderate peroneus longus tenosynovitis. 3. Soft tissue plantar ulcer with fluid around the fifth metatarsal without interval development of bone edema of the partially amputated fifth metatarsal. The amount of fluid is decreased but still can signify an abscess. However, there is sever motion artifact making it difficult to assess. 4. There is increased arthropathy of the navicular-cuneiform articulations and intercuneiform articulations since the prior study with increased fluid. Electronically Signed: Dallas Arndt MD at 16:50 EDT ,
--- NOTE | 2022-01-06 12:16 | CON.PCM.ID_ITS ---
Assessment & Plan Assessment/Plan (1) Bacteremia: PLAN: staph aureus bacteremia. Suspected source is bilateral foot in fection. Wound cxs from feet with staph and GNR. Will broaden cefazolin to cefepime for GNR coverage. Pt has h/o PsA, klebs, and enterobacter foot infection within past few months. Repeat bcx today, echo pending. Podiatry is consulted. With back pain and worsening of Bilat feet, will check MRIs, noncontrast. Will follow, thank you HPI Consult Data Date of Consult: 01/06/22 HPI Narrative HPI Narrative: DIONY ROCHA, is a 56 F with DM, recurrent foot infections, presented with several weeks worsening back pain, 4-5 days of progressive chill s, nausea, BLE edema/pain. Follows at wound center. Came to ED, admitted on cefazolin, not feeling any better. Still episodes of emesis. Full ROS performed and neg except as noted above. [facility] Medical History Acquired varus deformity of left foot Acquired varus deformity of right foot Amputation foot, bilat Anemia due to chronic illness Anxiety and depression Atherosclerosis of [place] coronary artery of [place] heart without angina pectoris Back pain, chronic Bilateral edema of lower extremity Charcot's joint of right foot Chronic renal insufficiency Chronic ulcer of left foot with fat layer exposed Chronic ulcer of right foot with necrosis of muscle COVID-19 (08/28/21) Delayed wound healing Diabetes Diabetic foot ulcer associated with type 2 diabetes mellitus Diabetic infection of left foot Diabetic polyneuropathy Diabetic ulcer of right ankle Elevated troponin Essential (primary) hypertension GERD (gastroesophageal reflux disease) Hemoglobin A1c greater than 9.0% HLD (hyperlipidemia) Hyperparathyroidism, secondary renal Hypertension Iron deficiency anemia Ischemic cardiomyopathy Myocardial infarct Non-compliance Non-smoker Normocytic anemia NSTEMI (non-ST elevated myocardial infarction) (09/20/18) Obesity (BMI 30.0-34.9) Osteomyelitis of left foot RLS (restless legs syndrome) Stage 4 chronic kidney disease TIA (transient ischemic attack) 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 Ulcer of left foot with fat layer exposed Ulcer of left foot with muscle involvement without evidence of necrosis Ulcer of right lower extremity with fat layer exposed Home Medications atorvastatin 80 mg tablet 80 mg PO QHS #90 tablet 11/30/19 [Rx Last Taken 01/03/22] pramipexole 1.5 mg PO BID 09/12/20 [History Last Taken 01/03/22] isosorbide mononitrate 30 mg PO DAILY 03/03/21 [History Last Taken 01/04/22] oxycodone 5 mg PO TID 07/07/21 [History Last Taken 01/04/22] paroxetine HCl 20 mg PO QHS 07/07/21 [History Last Taken 01/04/22] bupropion HCl 150 mg PO.IVFORM DAILY 09/02/21 [History Last Taken 01/04/22] carvedilol [Coreg] 6.25 mg PO BID #60 tab 09/08/21 [Rx Last Taken 01/04/22] clopidogrel 75 mg PO DAILY 10/25/21 [History Last Taken 01/04/22] Lantus Solostar U-100 Insulin 30 unit SUBCUT DAILY 11/16/21 [History Last Taken 01/04/22] hydroxyzine HCl 25 mg PO DAILY 11/16/21 [History Last Taken 01/04/22] insulin lispro [Humalog KwikPen Insulin] 15 unit SUBCUT TIDCM 11/16/21 [History Last Taken Unknown] cyclobenzaprine 5 mg PO QHS #0 tab 12/23/21 [Rx Last Taken 01/03/22] gabapentin 300 mg BID 12/23/21 [History Last Taken 01/04/22] melatonin 10 mg PO QHS 01/05/22 [History Last Taken 01/03/22] Allergy/AdvReac Type Severity Reaction Status Date / Time Penicillins Allergy swelling Verified 01/04/22 21:55 in throat vancomycin Allergy Itching Verified 01/04/22 21:55 metronidazole AdvReac Nausea Verified 01/04/22 21:55 oxycodone [From OxyContin] AdvReac Shortness Verified 01/04/22 21:55 of breath Family History Mother Diabetes CVA (cerebral vascular accident) Brother CAD (coronary artery disease) CABG X 3 Cancer testicular Diabetes Brother CAD (coronary artery disease) CABG X3 Diabetes Brother CAD (coronary artery disease) Stents Diabetes Sister CAD (coronary artery disease) CABG x 3 CVA (cerebral vascular accident) Diabetes Surgical History History of bilateral carpal tunnel release History of History of coronary artery stent placement (12/31/20) History of foot surgery History of rotator cuff surgery Social History household members: none number of children: 2 current occupational status: disabled Smoking Status: Never smoker alcohol intake: never substance use type: does not use caffeine: Yes Type: carbonated beverages Number of servings: 2 Physical Exam Const alert and no apparent distress General Appearance: cooperative Exam Limitations: no limitations HEENT normocephalic and head/scalp atraumatic Eyes PERRL and EOMs intact bilaterally Neck supple and No nodes Resp normal air movement and clear to auscultation bilaterally Cardio regular rate and regular rhythm GI soft to palpation, non-tender and non-distended Extremity General Extremity: edema Skin Skin Narrative: reviewed photos Neuro CN's II-XII intact bilaterally Lab / Micro Data Result Diagrams: 01/06/22 05:30 01/06/22 05:30 Labs: Laboratory Results - last 24 hr 01/05/22 05:39: Iron 12 L, TIBC 154 L, Iron Saturation 7.8 L, Ferritin 217 01/05/22 16:28: POC Glucose 286 H 01/05/22 21:50: POC Glucose 219 H 01/06/22 05:30: WBC 12.7 H, RBC 2.49 L, Hgb 7.2 L, Hct 22.8 L, MCV 91.6 D, MCH 28.9, MCHC 31.6 L, RDW Std Deviation 47.9 H, RDW Coeff of Fior 14.2, Plt Count 212, MPV 12.9 H, Immature Gran % (Auto) 0.500, Neut % (Auto) 87.2 H, Lymph % (Auto) 5.9 L, [place] % (Auto) 4.3, Eos % (Auto) 1.9, Baso % (Auto) 0.2, Absolute Neuts (auto) 11.1 H, Absolute Lymphs (auto) 0.75 L, Nucleated RBC % 0, Differential Comment SCANNED 01/06/22 05:30: Sodium 131 L, Potassium 3.8, Chloride 101, Carbon Dioxide 23.0, Anion Gap 7, BUN 67 H, Creatinine 3.48 H, Estim Creat Clear Calc 16.90, Est GFR (MDRD) Af Amer 18 L, Est GFR (MDRD) Non-Af 14 L, BUN/Creatinine Ratio 19.3, Glucose 218 H, Calcium 7.5 L, Total Bilirubin 0.40, AST 48 H, ALT 29, Alkaline Phosphatase 405 H, Total Protein 6.2 L, Albumin 1.3 L, Globulin 4.9 H, Albumin/Globulin Ratio 0.3 L 01/06/22 07:43: POC Glucose 211 H Micro: Microbiology 01/05/22 01:15 Wound - Left Foot Gram Stain - Final 01/05/22 01:15 Wound - Left Foot Wound Culture - Preliminary 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 01/05/22 00:45 Blood Culture (Wb) - Arm Left Blood Culture - Preliminary Staphylococcus aureus 01/05/22 01:00 Blood Culture (Wb) - Left Hand Bacteria Detection (PCR) - Final Staphylococcus aureus 01/05/22 01:00 Blood Culture (Wb) - Left Hand Blood Culture - Preliminary Staphylococcus aureus
[2022-01-06 12:41] LABS: Bedside Glucose 214 mg/dL (74-106)
--- NOTE | 2022-01-06 12:52 | MRI_ITS ---
EXAM: MR LEFT LOWER EXTREMITY WITHOUT INTRAVENOUS CONTRAST, FOOT CLINICAL INDICATION: BILATERAL FOOT WOUND,WOUND PLANTER , AREA OF BASE OF 5TH mt TECHNIQUE: Multiplanar and multisequence MR images of the left foot without intravenous contrast. This report was created using [employer] report generation technology. COMPARISON: Sep 01 2020 6:17pm FINDINGS: LIGAMENTS: MEDIAL COLLATERAL: Unremarkable. Intact. LATERAL COLLATERAL: Unremarkable. Intact. LISFRANC: Unremarkable. Intact. TENDONS: FLEXOR: Unremarkable. Intact. EXTENSOR: Unremarkable. Intact. PERONEAL: Unremarkable. Intact. TIBIALIS ANTERIOR: Unremarkable. Intact. TIBIALIS POSTERIOR: Unremarkable. Intact. MUSCLES: Unremarkable. No edema or myositis. FLUID: Unremarkable. No joint effusion. PLANTAR FASCIA: Unremarkable. Intact. BONES/JOINTS: Partial amputation of the fifth digit (transmetatarsal). There is abnormal increased STIR signal around the Partial amputation of the fifth digit. There is low T1 signal around the digit. This is concerning for osteomyelitis. Normal forefoot alignment. No fracture. No joint effusion. OTHER SOFT TISSUES: Soft tissue swelling and ulcer of the plantar forefoot redemonstrated. It is smaller than the prior MRI. This suggests an infectious process. OTHER FINDINGS: MRI/Lower Ext/No Jt/w/o IMPRESSION: 1. Soft tissue swelling and ulcer of the plantar forefoot redemonstrated. It is smaller than the prior MRI. This suggests an infectious process. 2. Findings concerning for osteomyelitis at the distal portion of the partial amputation site of the 5th digit. However this area is difficult to evaluate due to sever motion artifact. a. Electronically Signed: Dallas Arndt MD at 19:41 EDT ,
[2022-01-06] MEDS: DAKIN'S SOL HALF STRENGTH (=0.25%) 1 APPLIC TOPICAL (12:59)
--- NOTE | 2022-01-06 14:12 | PN.HOSP_ITS ---
Subjective Subjective Follow-up on bacteremia/bilateral leg cellulitis/chronic ulcers/back pain: Patient was seen and examined. Complains of severe back pain. Blood pressures have is relatively low. Blood pressure meds have been held. Patient complains of constipation. Will be given stool softeners. No melena stools. Denies any fever or chills. Objective Data Objective Data Vital Signs: Vital Signs Temp Pulse Resp BP Pulse Ox 97.6 F L 78 16 99/51 L 99 01/06/22 11:02 01/06/22 11:02 01/06/22 11:02 01/06/22 11:02 01/06/22 11:02 Oxygen Delivery Method Room Air Weight: 95.2 kg Body Mass Index (BMI) 33.8 Intake & Output: Intake and Output for Last 24 Hours 01/04/22 01/05/22 01/06/22 23:59 23:59 23:59 Intake Total 1827.5 / 1827.5 290 / 290 Output Total 300 / 300 Balance 1827.5 / 1827.5 -10 / -10 Lab / Micro Data Result Diagrams: 01/06/22 05:30 01/06/22 05:30 Labs: Laboratory Results - last 24 hr 01/05/22 05:39: Iron 12 L, TIBC 154 L, Iron Saturation 7.8 L, Ferritin 217 01/05/22 16:28: POC Glucose 286 H 01/05/22 21:50: POC Glucose 219 H 01/06/22 05:30: WBC 12.7 H, RBC 2.49 L, Hgb 7.2 L, Hct 22.8 L, MCV 91.6 D, MCH 28.9, MCHC 31.6 L, RDW Std Deviation 47.9 H, RDW Coeff of Fior 14.2, Plt Count 212, MPV 12.9 H, Immature Gran % (Auto) 0.500, Neut % (Auto) 87.2 H, Lymph % (Auto) 5.9 L, [place] % (Auto) 4.3, Eos % (Auto) 1.9, Baso % (Auto) 0.2, Absolute Neuts (auto) 11.1 H, Absolute Lymphs (auto) 0.75 L, Nucleated RBC % 0, Differential Comment SCANNED 01/06/22 05:30: Sodium 131 L, Potassium 3.8, Chloride 101, Carbon Dioxide 23.0, Anion Gap 7, BUN 67 H, Creatinine 3.48 H, Estim Creat Clear Calc 16.90, Est GFR (MDRD) Af Amer 18 L, Est GFR (MDRD) Non-Af 14 L, BUN/Creatinine Ratio 19.3, Glucose 218 H, Calcium 7.5 L, Total Bilirubin 0.40, AST 48 H, ALT 29, Alkaline Phosphatase 405 H, Total Protein 6.2 L, Albumin 1.3 L, Globulin 4.9 H, Albumin/Globulin Ratio 0.3 L 01/06/22 07:43: POC Glucose 211 H 01/06/22 11:34: POC Glucose 214 H Micro: Microbiology 01/05/22 01:15 Wound - Left Foot Gram Stain - Final 01/05/22 01:15 Wound - Left Foot Wound Culture - Preliminary 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 01/05/22 00:45 Blood Culture (Wb) - Arm Left Blood Culture - Preliminary Staphylococcus aureus 01/05/22 01:00 Blood Culture (Wb) - Left Hand Bacteria Detection (PCR) - Final Staphylococcus aureus 01/05/22 01:00 Blood Culture (Wb) - Left Hand Blood Culture - Preliminary Staphylococcus aureus 01/05/22 02:23 Nasal Secretion SARS-CoV-2 & FLU Antigen (Rapid) - Final Radiography Diagnostic Testing: Radiology Impression Echocardiogram 01/06/22 11:05 Interpretation Summary The estimated ejection fraction is 55 %. Diastolic function is indeterminate. Trivial mitral valve insufficiency. No significant valvular vegetations seen Ordering Physician: Annie Steven Referring Physician: MD Raúl Eric Performed By: Juancarlos Sands [facility] Physical Exam Narrative Physical exam: General: Alert, Oriented x3, Cooperative, No apparent distress, obese, on 2 L of oxygen HEENT: Atraumatic Oral: Moist Mucosa Neck: Supple Lungs: Diminished to auscultation Cardiovascular: HS I+II, regular, no murmurs Abdomen: Bowel Sounds Present, Soft, Non Tender Extremities: Bilateral leg edema +3, [place] wrap Assessment & Plan Assessment/Plan (1) Cellulitis: QUALIFIERS: Site of cellulitis: extremity Site of cellulitis of extremity: lower extremity Laterality: right Qualified Code(s): L03.115 - Cellulitis of right lower limb PLAN: 1. Acute staph aureus bacteremia, history of MSSA, Enterobacter bacteremia Patient is on IV cefazolin, We will consult ID, check 2D echo 2. Acute cellulitis of lower extremities, history of recurrent foot infections, follows longitudinally in the wound center Acute DVT ruled out on admission. Continue on IV antibiotic Wound RN following 3. Bilateral leg edema, likely multifactorial secondary to fluid overload state/severe hypoalbuminemia of 1.3/from probable diastolic CHF BNPep on 01/05/22 was 2661.5. 2D echo shows EF 55%, indeterminate diastolic dysfunction Patient did not tolerate trial of Lasix as her Cr worsened We will continue with [place] wrap 4. Anemia, mixed etiology?iron deficiency anemia/anemia of chronic disease with an element of hemodilution Hemoglobin 7.2, dropped from 8.0 IV Venofer x1, repeat blood work in a.m. 5. FELI on CKD stage IV, admitting creatinine was 2.95 Creatinine today is 3.48, nephrology consult Urine sodium, urine creatinine Hold IV Lasix Maintain optimal blood pressures Repeat blood work in a.m. 6. Hyponatremia, likely secondary to hypovolemia, sodium is 131, will continue to monitor 7. Type II DM, blood sugar fairly controlled we will continue to monitor with insulin sliding scale with blood glucose checks 8. Back pain, chronic, status post recent back injections, discussed with Dr. Matute, patient is on oral oxycodone We will continue the same 9. DVT prophylaxis - Heparin SC Charges/Coding Visit Charges Inpatient E&M: [id number] Subs Hosp L2
--- NOTE | 2022-01-06 14:40 | MRI_ITS ---
STUDY: MR Spine Lumbar W/O Contrast 01/06/2022 9:03 PM REASON FOR EXAM: Female, 56 years old. Back pain back pain, bacteremia. Non contrast TECHNIQUE: MR Spine Lumbar W/O Contrast Standardized fat and water weighted pulse sequences were obtained. COMPARISON: 12.23.21 FINDINGS: T12-L1: Normal endplates. Normal disc height, hydration and morphology. Normal bilateral facet joints. Normal central canal and bilateral lateral recesses. Normal bilateral intervertebral neural foramina. Normal lumbar lordosis. There is no substantial scoliosis. Normal conus medullaris that terminates at the L1. L1-2: Normal endplates. Normal disc height and morphology. Normal central canal and intervertebral neuroforamina. L2-3: Normal endplates. Normal disc height, hydration and morphology. Normal bilateral facet joints. Normal central canal and bilateral lateral recesses. Normal bilateral intervertebral neural foramina. L3-4: Normal endplates. Normal disc height, hydration and morphology. Normal bilateral facet joints. Normal central canal and bilateral lateral recesses. Normal bilateral intervertebral neural foramina. L4-5: Loss of intervertebral disc height. There is endplate spondylosis of the vertebral body. Normal central canal and intervertebral neuroforamina. There is bilateral facet arthropathy. Disc herniation. Severe spinal stenosis. There is bilateral ligamentum flavum thickening. L5-S1: Normal endplates. Normal disc height and morphology. Normal central canal and intervertebral neuroforamina. Normal visualized sacral ala. Paraspinal subcutaneous edema. MRI/Spine Lumbar (Routine) IMPRESSION: L4-5: Disc herniation. Severe spinal stenosis. This has progressed since 12.23.21 Electronically Signed: Dallas Arndt MD at 21:05 EDT ,
--- NOTE | 2022-01-06 14:55 | CON.PCM.RE_ITS ---
Assessment & Plan Assessment/Plan (1) FELI (acute kidney injury): PLAN: Patient has known history of CKD stage IIIb with baseline creatinine around 1.8-2.0. Several fluctuations over the last several years. At baseline she has significant proteinuria likely related to diabetic nephropathy. Urine analysis this admission is comparable. Was admitted with a creatinine of 2.4, improved to 2.2 and has increased to 3.2 today. Blood pressure has been borderline. Echocardiogram is satisfactory. Blood pressure medications have been held. Recent imaging did not show any hydronephrosis. Most likely acute renal failure is related to low blood pressure. Continue to hold Lasix,continue to hold blood pressure medications for now. HPI Consult Data Date of Consult: 01/06/22 HPI Narrative HPI Narrative: DIONY ROHCA, is a 56 F who presents to the hospital with lower extremity wounds. Nephrology consulted for acute renal failure. She has known history of poorly controlled diabetes, appears to have CKD stage IIIb with creatinine between 1.8-2.1. Admitted with a creatinine of 2.4 and has now increased to 3.2. She is currently being treated for bacteremia, ID on consult. No urinary complaints. Abdominal imaging earlier this month did not show any hydronephrosis. Blood pressure has been borderline. Echocardiogram with good ejection fraction of 55%, diastolic dysfunction could not be determined. She does have moderate amount of edema, venous Dopplers negative. She did receive a dose of Lasix yesterday. No contrast. [facility] Medical History Acquired varus deformity of left foot Acquired varus deformity of right foot Amputation foot, bilat Anemia due to chronic illness Anxiety and depression Atherosclerosis of [place] coronary artery of [place] heart without angina pectoris Back pain, chronic Bilateral edema of lower extremity Charcot's joint of right foot Chronic renal insufficiency Chronic ulcer of left foot with fat layer exposed Chronic ulcer of right foot with necrosis of muscle COVID-19 (08/28/21) Delayed wound healing Diabetes Diabetic foot ulcer associated with type 2 diabetes mellitus Diabetic infection of left foot Diabetic polyneuropathy Diabetic ulcer of right ankle Elevated troponin Essential (primary) hypertension GERD (gastroesophageal reflux disease) Hemoglobin A1c greater than 9.0% HLD (hyperlipidemia) Hyperparathyroidism, secondary renal Hypertension Iron deficiency anemia Ischemic cardiomyopathy Myocardial infarct Non-compliance Non-smoker Normocytic anemia NSTEMI (non-ST elevated myocardial infarction) (09/20/18) Obesity (BMI 30.0-34.9) Osteomyelitis of left foot RLS (restless legs syndrome) Stage 4 chronic kidney disease TIA (transient ischemic attack) 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 Ulcer of left foot with fat layer exposed Ulcer of left foot with muscle involvement without evidence of necrosis Ulcer of right lower extremity with fat layer exposed Home Medications atorvastatin 80 mg tablet 80 mg PO QHS #90 tablet 11/30/19 [Rx Last Taken 01/03/22] pramipexole 1.5 mg PO BID 09/12/20 [History Last Taken 01/03/22] isosorbide mononitrate 30 mg PO DAILY 03/03/21 [History Last Taken 01/04/22] oxycodone 5 mg PO TID 07/07/21 [History Last Taken 01/04/22] paroxetine HCl 20 mg PO QHS 07/07/21 [History Last Taken 01/04/22] bupropion HCl 150 mg PO.IVFORM DAILY 09/02/21 [History Last Taken 01/04/22] carvedilol [Coreg] 6.25 mg PO BID #60 tab 09/08/21 [Rx Last Taken 01/04/22] clopidogrel 75 mg PO DAILY 10/25/21 [History Last Taken 01/04/22] Lantus Solostar U-100 Insulin 30 unit SUBCUT DAILY 11/16/21 [History Last Taken 01/04/22] hydroxyzine HCl 25 mg PO DAILY 11/16/21 [History Last Taken 01/04/22] insulin lispro [Humalog KwikPen Insulin] 15 unit SUBCUT TIDCM 11/16/21 [History Last Taken Unknown] cyclobenzaprine 5 mg PO QHS #0 tab 12/23/21 [Rx Last Taken 01/03/22] gabapentin 300 mg BID 12/23/21 [History Last Taken 01/04/22] melatonin 10 mg PO QHS 01/05/22 [History Last Taken 01/03/22] Allergy/AdvReac Type Severity Reaction Status Date / Time Penicillins Allergy swelling Verified 01/04/22 21:55 in throat vancomycin Allergy Itching Verified 01/04/22 21:55 metronidazole AdvReac Nausea Verified 01/04/22 21:55 oxycodone [From OxyContin] AdvReac Shortness Verified 01/04/22 21:55 of breath Family History Mother Diabetes CVA (cerebral vascular accident) Brother CAD (coronary artery disease) CABG X 3 Cancer testicular Diabetes Brother CAD (coronary artery disease) CABG X3 Diabetes Brother CAD (coronary artery disease) Stents Diabetes Sister CAD (coronary artery disease) CABG x 3 CVA (cerebral vascular accident) Diabetes Surgical History History of bilateral carpal tunnel release History of History of coronary artery stent placement (12/31/20) History of foot surgery History of rotator cuff surgery Social History household members: none number of children: 2 current occupational status: disabled Smoking Status: Never smoker alcohol intake: never substance use type: does not use caffeine: Yes Type: carbonated beverages Number of servings: 2 ROS ROS Narrative Negative except above Physical Exam Narrative Alert awake oriented x 3 no obvious distress no pallor no icterus no JVD s1s2 no murmurs lungs clear abdomen soft no organomegaly ++ edema no cyanosis Lab / Micro Data Result Diagrams: 01/06/22 05:30 01/06/22 05:30 Labs: Laboratory Results - last 24 hr 01/05/22 05:39: Iron 12 L, TIBC 154 L, Iron Saturation 7.8 L, Ferritin 217 01/05/22 16:28: POC Glucose 286 H 01/05/22 21:50: POC Glucose 219 H 01/06/22 05:30: WBC 12.7 H, RBC 2.49 L, Hgb 7.2 L, Hct 22.8 L, MCV 91.6 D, MCH 28.9, MCHC 31.6 L, RDW Std Deviation 47.9 H, RDW Coeff of Fior 14.2, Plt Count 212, MPV 12.9 H, Immature Gran % (Auto) 0.500, Neut % (Auto) 87.2 H, Lymph % (Auto) 5.9 L, [place] % (Auto) 4.3, Eos % (Auto) 1.9, Baso % (Auto) 0.2, Absolute Neuts (auto) 11.1 H, Absolute Lymphs (auto) 0.75 L, Nucleated RBC % 0, Differential Comment SCANNED 01/06/22 05:30: Sodium 131 L, Potassium 3.8, Chloride 101, Carbon Dioxide 23.0, Anion Gap 7, BUN 67 H, Creatinine 3.48 H, Estim Creat Clear Calc 16.90, Est GFR (MDRD) Af Amer 18 L, Est GFR (MDRD) Non-Af 14 L, BUN/Creatinine Ratio 19.3, Gluc ose 218 H, Calcium 7.5 L, Total Bilirubin 0.40, AST 48 H, ALT 29, Alkaline Phosphatase 405 H, Total Protein 6.2 L, Albumin 1.3 L, Globulin 4.9 H, Albumin/Globulin Ratio 0.3 L 01/06/22 07:43: POC Glucose 211 H 01/06/22 11:34: POC Glucose 214 H Micro: Microbiology 01/05/22 01:15 Wound - Left Foot Gram Stain - Final 01/05/22 01:15 Wound - Left Foot Wound Culture - Preliminary 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 01/05/22 00:45 Blood Culture (Wb) - Arm Left Blood Culture - Preliminary Staphylococcus aureus 01/05/22 01:00 Blood Culture (Wb) - Left Hand Bacteria Detection (PCR) - Final Staphylococcus aureus 01/05/22 01:00 Blood Culture (Wb) - Left Hand Blood Culture - Preliminary Staphylococcus aureus Radiology Impression Echocardiogram 01/06/22 11:05 Interpretation Summary The estimated ejection fraction is 55 %. Diastolic function is indeterminate. Trivial mitral valve insufficiency. No significant valvular vegetations seen Ordering Physician: Annie Steven Referring Physician: MD Jeaneth Raúl Performed By: Juancarlos Sands [facility]
[2022-01-06] MEDS: Glucerna Shake 120 ML LIQUID PO (16:49)
[2022-01-06 16:55] LABS: Bedside Glucose 155 mg/dL (74-106)
--- NOTE | 2022-01-06 18:07 | PCM.CONS.GEN ---
Assessment & Plan Assessment/Plan (1) FELI (acute kidney injury): (2) Bacteremia: (3) SIRS (systemic inflammatory response syndrome): (4) Acute lumbar radiculopathy: (5) Diabetic foot infection: (6) Non-pressure chronic ulcer of other part of left foot with fat layer exposed: (7) Cellulitis of right foot: (8) Non-pressure chronic 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 layer exposed: (9) Charcot's joint, left ankle and foot: (10) Charcot's joint, right ankle and foot: PLAN: This is a 56 F who presents with bilateral plantar foot ulcerations with right lower extremity cellulitis complicated by 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 She reports swelling to lower extremities 3 days duration with no improvement despite wrapping her legs. At time of admission she also demonstrated cellulitis of the right lower extremity. Vascular: Negative DVT on venous ultrasound. Adequate vascular perfusion to heal. Vascular studies from 09/01/2020 demonstrate triphasic waveforms. Upon admission she has bilateral pitting edema to the legs and feet and beta natriuretic peptide 2661.5 concerning for CHF, medicine following. She has been following with in the wound care center for debridements and has been nonweightbearing bilateral lower extremities utilizing wheelchair for ambulation. She has history of Charcot foot deformity bilateral and demonstrates no gross laxity or crepitus with manipulation. Hemoglobin A1c June 2021 was 9%. He has history of PsA, Klebs, & enterobacter in foot within last few months. she has history of coagulase-negative staph from wound culture 09/17/2021 and recent wound cultures demonstrate staph and gram-negative elinor. Infectious disease following and placed her on cefepime for gram-negative coverage. MRI bilateral foot from 01/06/2022 was reviewed. Left lower extremity foot ulceration currently demonstrates no localized signs of infection. Will continue to monitor for changes. Right lower extremity plantar foot ulceration demonstrates no localized signs of infection about the ulcerative site but does demonstrate erythema to the dorsal aspect of the foot extending proximally to the midfoot. I performed debridement bedside to the plantar ulcerative site removing macerated tissue, hyperkeratotic tissue, slough and biofilm. Anesthesia was not required due to patient peripheral polyneuropathy. Bleeding controlled with pressure. Patient tolerated procedure well. Upon squeezing lateral aspect of the foot approximately 1.5 cc of purulent drainage and blood emerged from the most lateral aspect of the ulcerative site. Upon further milking proximally and distally no further purulence could be expressed from the site. Ulcerative sites bilaterally were painted with Betadine and dressed with Dakin's wet-to-dry and [place] wraps under mild compression applied to bilateral lower extremities. Recommend daily dressing changes with Dakin's wet-to-dry and [place] wrap under mild compression. Following debridement and continued IV antibiotics WBC decreased from 12.7-11.6. Given some improvement at this point in time I will continue to follow and monitor for any changes. Pending changes OR debridement will be considered right lower extremity ulceration. Continued nonweightbearing status to bilateral lower extremities with wheelchair to assist ambulation. Recommending SNF placement and following with wound care center upon discharge. Infectious disease following is appreciated. Medicine following for medical management is appreciated. Podiatry will continue to follow while in-house, thank you for your consultation. Please call for any questions or concerns. Dr. Kayden Gann Jr. D.P.M. [facility] [place] [phone] Note: [employer] speech recognition doctor of naprapathic medicine software was used to create portions of this document. Sound-alike and misspelled words, as well as other doctor of naprapathic medicine errors may be contained in the documentation. HPI Consult Data Date of Consult: 01/06/22 HPI Narrative HPI Narrative: DIONY ROCHA, is a 56 F who presents with bilateral plantar foot ulcerations with right lower extremity cellulitis complicated by 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 She is seen bedside today resting with complaints of back pain. She states that she is being seen in the wound care center followed by Dr. Edgar. She states that she began to experience swelling of her lower extremities right > left 3 days ago and she began to wrap her lower extremities but noticed her leg swelling was not improving. On presentation to the ED for pain in her back she also noticed increased redness to the top of her right foot which was not present prior to presentation. She also admitted to previous bout of nausea and vomiting. Wound culture performed in ED and she was started on IV antibiotics and admitted for suspected staph aureus bacteremia. [facility] Medical History Acquired varus deformity of left foot Acquired varus deformity of right foot Amputation foot, bilat Anemia due to chronic illness Anxiety and depression Atherosclerosis of [place] coronary artery of [place] heart without angina pectoris Back pain, chronic Bilateral edema of lower extremity Charcot's joint of right foot Chronic renal insufficiency Chronic ulcer of left foot with fat layer exposed Chronic ulcer of right foot with necrosis of muscle COVID-19 (08/28/21) Delayed wound healing Diabetes Diabetic foot ulcer associated with type 2 diabetes mellitus Diabetic infection of left foot Diabetic polyneuropathy Diabetic ulcer of right ankle Elevated troponin Essential (primary) hypertension GERD (gastroesophageal reflux disease) Hemoglobin A1c greater than 9.0% HLD (hyperlipidemia) Hyperparathyroidism, secondary renal Hypertension Iron deficiency anemia Ischemic cardiomyopathy Myocardial infarct Non-compliance Non-smoker Normocytic anemia NSTEMI (non-ST elevated myocardial infarction) (09/20/18) Obesity (BMI 30.0-34.9) Osteomyelitis of left foot RLS (restless legs syndrome) Stage 4 chronic kidney disease TIA (transient ischemic attack) 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 Ulcer of left foot with fat layer exposed Ulcer of left foot with muscle involvement without evidence of necrosis Ulcer of right lower extremity with fat layer exposed Home Medications atorvastatin 80 mg tablet 80 mg PO QHS #90 tablet 11/30/19 [Rx Last Taken 01/03/22] pramipexole 1.5 mg PO BID 09/12/20 [History Last Taken 01/03/22] isosorbide mononitrate 30 mg PO DAILY 03/03/21 [History Last Taken 01/04/22] oxycodone 5 mg PO TID 07/07/21 [History Last Taken 01/04/22] paroxetine HCl 20 mg PO QHS 07/07/21 [History Last Taken 01/04/22] bupropion HCl 150 mg PO.IVFORM DAILY 09/02/21 [History Last Taken 01/04/22] carvedilol [Coreg] 6.25 mg PO BID #60 tab 09/08/21 [Rx Last Taken 01/04/22] clopidogrel 75 mg PO DAILY 10/25/21 [History Last Taken 01/04/22] Lantus Solostar U-100 Insulin 30 unit SUBCUT DAILY 11/16/21 [History Last Taken 01/04/22] hydroxyzine HCl 25 mg PO DAILY 11/16/21 [History Last Taken 01/04/22] insulin lispro [Humalog KwikPen Insulin] 15 unit SUBCUT TIDCM 11/16/21 [History Last Taken Unknown] cyclobenzaprine 5 mg PO QHS #0 tab 12/23/21 [Rx Last Taken 01/03/22] gabapentin 300 mg BID 12/23/21 [History Last Taken 01/04/22] melatonin 10 mg PO QHS 01/05/22 [History Last Taken 01/03/22] Allergy/AdvReac Type Severity Reaction Status Date / Time Penicillins Allergy swelling Verified 01/04/22 21:55 in throat vancomycin Allergy Itching Verified 01/04/22 21:55 metronidazole AdvReac Nausea Verified 01/04/22 21:55 oxycodone [From OxyContin] AdvReac Shortness Verified 01/04/22 21:55 of breath Family History Mother Diabetes CVA (cerebral vascular accident) Brother CAD (coronary artery disease) CABG X 3 Cancer testicular Diabetes Brother CAD (coronary artery disease) CABG X3 Diabetes Brother CAD (coronary artery disease) Stents Diabetes Sister CAD (coronary artery disease) CABG x 3 CVA (cerebral vascular accident) Diabetes Surgical History History of bilateral carpal tunnel release History of History of coronary artery stent placement (12/31/20) History of foot surgery History of rotator cuff surgery Social History household members: none number of children: 2 current occupational status: disabled Smoking Status: Never smoker alcohol intake: never substance use type: does not use caffeine: Yes Type: carbonated beverages Number of servings: 2 ROS Constitutional Constitutional: Denies chills, fever(s) or headache(s) Eyes Eyes: Denies double vision, dry eyes or itchy eyes ENT HEENT: Denies dysphagia, nasal congestion, nasal discharge or sore throat Cardiovascular Cardiovascular: Denies chest pain, dyspnea or palpitations Respiratory/Chest Respiratory/Chest: Denies cough, dyspnea or productive cough Gastrointestinal Gastrointestinal: Reports nausea and vomiting; Denies constipation or diarrhea Genitourinary Genitourinary: Denies dysuria, hematuria, urinary hesitancy or urinary urgency Musculoskeletal Musculoskeletal: Denies joint pain, joint stiffness or joint swelling Integumentary Integumentary: Denies jaundice, lesions or nail changes Neurologic Neurologic: Denies dizziness, headache(s) or seizures Psychiatric Psychiatric: Denies anxiety or depression Endocrine Endocrinology: Denies cold intolerance or heat intolerance Hematologic/Lymphatic Hematologic/Lymphatic: Denies easy bleeding or easy bruising Physical Exam Const alert, oriented x3, no apparent distress and well nourished General Appearance: cooperative and comfortable HEENT normocephalic Eyes General Eye: normal appearance of both eyes Neck General: normal visual inspection Lymph Lymphatic: no lymphadenopathy noted and no lymphedema noted Resp normal respiratory effort Cardio regular rate and regular rhythm Extremity normal capillary refill and no calf tenderness Skin no rashes or lesions noted and no jaundice Wound Narrative: Left foot plantar ulceration subfifth metatarsal secondary to Charcot deformity demonstrates healthy granular base with hyperkeratotic rim. No localized erythema about ulcer site. No erythema dorsal foot. Ulceration demonstrates no purulent drainage or malodor. Surrounding skin is atrophic. Right foot plantar ulceration subfifth metatarsal secondary to Charcot foot deformity demonstrates healthy granular base with hyperkeratotic rim and macerated tissue. There is serosanguineous drainage from the ulcer site. Ulceration demonstrates no localized erythema or malodor. Dorsal foot demonstrates erythema extending proximally to the midfoot. Palpable fluctuance or crepitus noted to palpation. However upon squeezing the lateral aspect of the foot 1.5 cc of purulent drainage along with blood was expressed from the ulcer site at the most lateral aspect. Upon further squeezing and milking proximally and distally no further purulence was expressible. Bedside sharp debridement was performed of this ulcerative site removing all macerated tissue and skin slough and biofilm. Neuro oriented x3 and moves all extremities Lab / Micro Data Result Diagrams: 01/06/22 22:25 01/06/22 22:25 Labs: Laboratory Results - last 24 hr 01/05/22 05:39: Iron 12 L, TIBC 154 L, Iron Saturation 7.8 L, Ferritin 217 01/05/22 21:50: POC Glucose 219 H 01/06/22 05:30: WBC 12.7 H, RBC 2.49 L, Hgb 7.2 L, Hct 22.8 L, MCV 91.6 D, MCH 28.9, MCHC 31.6 L, RDW Std Deviation 47.9 H, RDW Coeff of Fior 14.2, Plt Count 212, MPV 12.9 H, Immature Gran % (Auto) 0.500, Neut % (Auto) 87.2 H, Lymph % (Auto) 5.9 L, [place] % (Auto) 4.3, Eos % (Auto) 1.9, Baso % (Auto) 0.2, Absolute Neuts (auto) 11.1 H, Absolute Lymphs (auto) 0.75 L, Nucleated RBC % 0, Differential Comment SCANNED 01/06/22 05:30: Sodium 131 L, Potassium 3.8, Chloride 101, Carbon Dioxide 23.0, Anion Gap 7, BUN 67 H, Creatinine 3.48 H, Estim Creat Clear Calc 16.90, Est GFR (MDRD) Af Amer 18 L, Est GFR (MDRD) Non-Af 14 L, BUN/Creatinine Ratio 19.3, Glucose 218 H, Calcium 7.5 L, Total Bilirubin 0.40, AST 48 H, ALT 29, Alkaline Phosphatase 405 H, Total Protein 6.2 L, Albumin 1.3 L, Globulin 4.9 H, Albumin/Globulin Ratio 0.3 L 01/06/22 07:43: POC Glucose 211 H 01/06/22 11:34: POC Glucose 214 H 01/06/22 16:48: POC Glucose 155 H Micro: Microbiology 01/05/22 01:15 Wound - Left Foot Gram Stain - Final 01/05/22 01:15 Wound - Left Foot Wound Culture - Preliminary Staphylococcus aureus 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 01/05/22 00:45 Blood Culture (Wb) - Arm Left Blood Culture - Preliminary Staphylococcus aureus 01/05/22 01:00 Blood Culture (Wb) - Left Hand Bacteria Detection (PCR) - Final Staphylococcus aureus 01/05/22 01:00 Blood Culture (Wb) - Left Hand Blood Culture - Preliminary Staphylococcus aureus Radiology Impression Echocardiogram 01/06/22 11:05 Interpretation Summary The estimated ejection fraction is 55 %. Diastolic function is indeterminate. Trivial mitral valve insufficiency. No significant valvular vegetations seen Ordering Physician: Annie Steven Referring Physician: MD Jeaneth Raúl Performed By: Juancarlos Sands RCS Lower Extremity MRI 01/06/22 12:13 IMPRESSION: 1. Moderate distal peroneal tenosynovitis. 2. Moderate peroneus longus tenosynovitis. 3. Soft tissue plantar ulcer with fluid around the fifth metatarsal without interval development of bone edema of the partially amputated fifth metatarsal. The amount of fluid is decreased but still can signify an abscess. However, there is sever motion artifact making it difficult to assess. 4. There is increased arthropathy of the navicular-cuneiform articulations and intercuneiform articulations since the prior study with increased fluid. Electronically Signed: Dallas Arndt MD at 16:50 EDT ,
[2022-01-06 21:55] LABS: Bedside Glucose 169 mg/dL (74-106)
[2022-01-06 22:34] LABS: Absolute Lymphocyte Count 0.58 X10^3/uL (0.83-4.51); Absolute Neutrophil Count 10.1 X10^3/uL (2.0-7.7); Basophil# 0.02 X10^3/uL; Basophil% 0.2 % (0-1); Eosinophil# 0.09 X10^3/uL; Eosinophils% 0.8 % (0-5); Hematocrit 21.2 % (37-47); Hemoglobin 6.9 g/dL (12.0-15.0); Lymphocyte # 0.58 X10^3/ul (0.83-4.51); Mean Corp Hgb Conc 32.5 g/dL (32-36); Mean Corpuscular Hgb 28.4 pg (27.0-32.0); Mean Corpuscular Volume 87.2 fL (81-99); Mean Platelet Vol. 12.4 fl (6.2-12.0); Monocyte# 0.61 X10^3/uL; Monocyte% 5.3 % (0-10); NRBC Flagged by Analyzer 0 % (0-5); Neutrophil # 10.13 X10^3/uL (2.7-7.7); Neutrophil % 87.6 % (47-70); POSITIVE DIFFERENTIAL YES; POSITIVE MORPHOLOGY YES; Platelet Count 214 K/mm3 (150-450); RBC Distribution Width CV 14.3 % (11.6-14.6); RBC Distribution Width SD 46.1 fl (35.1-43.9); Red Blood Count 2.43 M/mm3 (4.2-5.4); White Blood Count 11.6 K/mm3 (4.4-11.0)
[2022-01-06 22:35] LABS: Differential Indicated SCAN CRITERIA MET
[2022-01-06 22:47] LABS: Anion Gap 10 (5-15); BUN 71 mg/dL (7-18); BUN/Creat Ratio 18.8 RATIO (10-20); Calcium,Total 7.7 mg/dL (8.5-10.1); Chloride 102 mmol/L (98-107); Creatinine, Serum 3.78 mg/dL (0.55-1.02); EST Glomerular Filtration Rate 13 mL/min (>60); Est Glom Filt Rate - Afr Amer 16 mL/min (>60); Estimated Creatinine Clearance 15.56 ml/min; Glucose 157 mg/dL (74-106); Sodium Level 132 mmol/L (136-145)
--- NOTE | 2022-01-06 23:07 | PCM.PN.BLA ---
Progress Note Patient with hypotension and drowsiness. Blood pressure 85/51 by machine and 88/50 manually per nurse. Repeat blood pressure ordered 79/51 and then 94/47. Labs ordered showed hemoglobin of 6.9. BUN has increased from 67-71 and creatinine has increased from 3.48-3.78.. Will give normal saline 500 mL bolus. Will transfuse 1 unit of blood.
[2022-01-06] MEDS: 0.9% Saline Lock 10 ML Syringe IV (23:20)
[2022-01-07] VITALS (19 sets, daily range): BP systolic 92–128; BP diastolic 45–74; PULSE 67–83; RESP 14–27; TEMP 36.6–37.2; O2SAT 92–99
--- NOTE | 2022-01-07 00:03 | NURSING ---
Pt was unable to sign blood consent. Phone consent obtained from pt's daughter Trisha, verified with Evelia IGLESIAS.
[2022-01-07] MEDS: Benzonatate 100 MG Capsule PO ×2 (03:46→08:47)
[2022-01-07] MEDS: Heparin Injection (Vial) 5,000 UNIT/ML VIAL 5000 UNIT SC ×2 (06:36→13:47)
[2022-01-07 07:14] LABS: Absolute Lymphocyte Count 0.84 X10^3/uL (0.83-4.51); Absolute Neutrophil Count 10.2 X10^3/uL (2.0-7.7); Basophil# 0.02 X10^3/uL; Basophil% 0.2 % (0-1); Eosinophil# 0.19 X10^3/uL; Eosinophils% 1.6 % (0-5); Hematocrit 23.4 % (37-47); Hemoglobin 7.5 g/dL (12.0-15.0); Lymphocyte # 0.84 X10^3/ul (0.83-4.51); Mean Corp Hgb Conc 32.1 g/dL (32-36); Mean Corpuscular Hgb 27.9 pg (27.0-32.0); Mean Platelet Vol. 12.9 fl (6.2-12.0); Monocyte# 0.66 X10^3/uL; Monocyte% 5.5 % (0-10); NRBC Flagged by Analyzer 0 % (0-5); Neutrophil # 10.16 X10^3/uL (2.7-7.7); Neutrophil % 84.9 % (47-70); POSITIVE MORPHOLOGY YES; Platelet Count 215 K/mm3 (150-450); RBC Distribution Width CV 14.5 % (11.6-14.6); RBC Distribution Width SD 46.3 fl (35.1-43.9); Red Blood Count 2.69 M/mm3 (4.2-5.4)
[2022-01-07 07:18] LABS: Differential Indicated SCAN CRITERIA MET
[2022-01-07 07:54] LABS: ALB/GLOB Ratio 0.3 RATIO (0.9-2.4); AST(SGOT) 360 U/L (15-37); Alanine Aminotransfer ALT/SGPT 71 U/L (13-56); Albumin, Serum 1.3 g/dL (3.2-5.0); Alkaline Phosphatase 511 U/L (45-117); Anion Gap 8 (5-15); BUN 77 mg/dL (7-18); BUN/Creat Ratio 21.1 RATIO (10-20); Calcium,Total 7.7 mg/dL (8.5-10.1); Chloride 102 mmol/L (98-107); Creatinine, Serum 3.65 mg/dL (0.55-1.02); EST Glomerular Filtration Rate 14 mL/min (>60); Est Glom Filt Rate - Afr Amer 17 mL/min (>60); Estimated Creatinine Clearance 16.11 ml/min; Globulin 4.7 g/dL (2.2-4.2); Glucose 163 mg/dL (74-106); Sodium Level 131 mmol/L (136-145)
[2022-01-07 08:21] LABS: Bedside Glucose 173 mg/dL (74-106)
[2022-01-07] MEDS: oxyCODONE 5 MG Tablet PO ×3 (08:33→21:56)
[2022-01-07] MEDS: Pramipexole Di-HCl 0.5 MG Tablet 1.5 MG PO ×2 (08:34→21:56)
[2022-01-07] MEDS: Carvedilol 6.25 MG Tablet PO (08:34)
[2022-01-07] MEDS: Gabapentin 300 MG Capsule PO ×2 (08:34→21:57)
[2022-01-07] MEDS: Isosorbide Mononitrate 30 MG Tablet PO (08:34)
[2022-01-07] MEDS: Clopidogrel Bisulfate 75 MG Tablet PO (08:35)
[2022-01-07] MEDS: hydrOXYzine PAM 25 MG Capsule PO (08:35)
[2022-01-07] MEDS: buPROPion (XL) 150 MG TABLET.XL PO (08:35)
[2022-01-07] MEDS: Insulin Glargine-YFGN 100 UNIT/ML Pen 30 UNIT SC (08:38)
[2022-01-07] MEDS: Glucerna Shake 120 ML LIQUID PO ×3 (08:38→17:42)
[2022-01-07] MEDS: Insulin Lispro 100 UNIT/ML INSULN.PEN SC ×2 (08:39→17:42)
[2022-01-07] MEDS: Insulin Lispro 100 UNIT/ML INSULN.PEN 15 UNIT SC ×3 (08:40→17:42)
--- NOTE | 2022-01-07 09:30 | RAD_ITS ---
STUDY: X-RAY CHEST REASON FOR EXAM: Female, 56 years old. SOB TECHNIQUE: Single AP portable view of the chest. COMPARISON: Comparison is made with prior study 01/05/2022. FINDINGS: EKG electrodes are seen. Stable elevation of the right hemidiaphragm. There is no demonstrated pleural abnormality. Normal size heart. Normal mediastinum and elvie. Normal visualized pulmonary arteries. Normal visualized aortic arch and descending thoracic aorta. Normal visualized thoracic spine. Normal visualized ribs, clavicles, and shoulders. There is no demonstrated abnormality of the visualized soft tissue structures of the upper abdomen. RAD/Chest 1 View (Portable) IMPRESSION: Normal x-ray examination of the chest. Electronically Signed: Ronnie Saavedra MD at 10:02 EDT ,
--- NOTE | 2022-01-07 09:30 | PN.HOSP_ITS ---
Subjective Subjective Follow-up on bacteremia/bilateral leg cellulitis/chronic ulcers/back pain: Patient was seen and examined. Patient complains of a coughing spell. She remains stable. Denies fever or chills. Patient was transfused 1 unit of blood last night. Objective Data Objective Data Vital Signs: Vital Signs Temp Pulse Resp BP Pulse Ox 98.0 F 68 21 H 113/59 L 96 01/07/22 05:00 01/07/22 06:53 01/07/22 05:00 01/07/22 05:00 01/07/22 07:03 Oxygen Delivery Method Room Air Weight: 95.2 kg Body Mass Index (BMI) 33.8 Intake & Output: Intake and Output for Last 24 Hours 01/05/22 01/06/22 01/07/22 23:59 23:59 23:59 Intake Total 1827.5 / 1827.5 1510 / 1510 950 / 950 Output Total 300 / 300 0 / 0 Balance 1827.5 / 1827.5 1210 / 1210 950 / 950 Lab / Micro Data Result Diagrams: 01/07/22 06:15 01/07/22 06:15 Labs: Laboratory Results - last 24 hr 01/06/22 11:34: POC Glucose 214 H 01/06/22 16:48: POC Glucose 155 H 01/06/22 21:44: POC Glucose 169 H 01/06/22 22:25: WBC 11.6 H, RBC 2.43 L, Hgb 6.9 L, Hct 21.2 L, MCV 87.2, MCH 28.4, MCHC 32.5, RDW Std Deviation 46.1 H, RDW Coeff of Fior 14.3, Plt Count 214, MPV 12.4 H, Immature Gran % (Auto) 1.100 H, Neut % (Auto) 87.6 H, Lymph % (Auto) 5.0 L, [place] % (Auto) 5.3, Eos % (Auto) 0.8, Baso % (Auto) 0.2, Absolute Neuts (auto) 10.1 H, Absolute Lymphs (auto) 0.58 L, Nucleated RBC % 0, Differential Comment 01/06/22 22:25: Sodium 132 L, Potassium 4.0, Chloride 102, Carbon Dioxide 20.0 L , Anion Gap 10, BUN 71 H, Creatinine 3.78 H, Estim Creat Clear Calc 15.56, Est GFR (MDRD) Af Amer 16 L, Est GFR (MDRD) Non-Af 13 L, BUN/Creatinine Ratio 18.8, Glucose 157 H, Calcium 7.7 L 01/06/22 23:40: Blood Type O POSITIVE, Antibody Screen NEGATIVE, Crossmatch See Detail 01/07/22 06:15: WBC 12.0 H, RBC 2.69 L, Hgb 7.5 L, Hct 23.4 L, MCV 87.0, MCH 27.9, MCHC 32.1, RDW Std Deviation 46.3 H, RDW Coeff of Fior 14.5, Plt Count 215, MPV 12.9 H, Immature Gran % (Auto) 0.800, Neut % (Auto) 84.9 H, Lymph % (Auto) 7.0 L, [place]ary % (Auto) 5.5, Eos % (Auto) 1.6, Baso % (Auto) 0.2, Absolute Neuts (auto) 10.2 H, Absolute Lymphs (auto) 0.84, Nucleated RBC % 0 01/07/22 06:15: Sodium 131 L, Potassium 4.0, Chloride 102, Carbon Dioxide 21.0, Anion Gap 8, BUN 77 H, Creatinine 3.65 H, Estim Creat Clear Calc 16.11, Est GFR (MDRD) Af Amer 17 L, Est GFR (MDRD) Non-Af 14 L, BUN/Creatinine Ratio 21.1 H, Glucose 163 H, Calcium 7.7 L, Total Bilirubin 1.00, AST 360 H, ALT 71 H, Alkaline Phosphatase 511 H, Total Protein 6.0 L, Albumin 1.3 L, Globulin 4.7 H, Albumin/Globulin Ratio 0.3 L 01/07/22 08:13: POC Glucose 173 H Micro: Microbiology 01/05/22 01:15 Wound - Left Foot Gram Stain - Final 01/05/22 01:15 Wound - Left Foot Wound Culture - Preliminary Staphylococcus aureus 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 01/05/22 01:00 Blood Culture (Wb) - Left Hand Bacteria Detection (PCR) - Final Staphylococcus aureus 01/05/22 01:00 Blood Culture (Wb) - Left Hand Blood Culture - Final Staphylococcus aureus 01/05/22 00:45 Blood Culture (Wb) - Arm Left Blood Culture - Final Staphylococcus aureus 01/05/22 02:23 Nasal Secretion SARS-CoV-2 & FLU Antigen (Rapid) - Final Radiography Diagnostic Testing: Radiology Impression Echocardiogram 01/06/22 11:05 Interpretation Summary The estimated ejection fraction is 55 %. Diastolic function is indeterminate. Trivial mitral valve insufficiency. No significant valvular vegetations seen Ordering Physician: Annie Steven Referring Physician: MD Jeaneth Raúl Performed By: Juancarlos Sands, [facility] Lower Extremity MRI 01/06/22 12:13 IMPRESSION: 1. Moderate distal peroneal tenosynovitis. 2. Moderate peroneus longus tenosynovitis. 3. Soft tissue plantar ulcer with fluid around the fifth metatarsal without interval development of bone edema of the partially amputated fifth metatarsal. The amount of fluid is decreased but still can signify an abscess. However, there is sever motion artifact making it difficult to assess. 4. There is increased arthropathy of the navicular-cuneiform articulations and intercuneiform articulations since the prior study with increased fluid. Electronically Signed: Dallas Arndt MD at 16:50 EDT Reading Location ID and State: [facility] / [place] , Service support , Lower Extremity MRI 01/06/22 12:52 IMPRESSION: 1. Soft tissue swelling and ulcer of the plantar forefoot redemonstrated. It is smaller than the prior MRI. This suggests an infectious process. 2. Findings concerning for osteomyelitis at the distal portion of the partial amputation site of the 5th digit. However this area is difficult to evaluate due to sever motion artifact. a. Electronically Signed: Dallas Arndt MD at 19:41 EDT , Lumbar Spine MRI 01/06/22 14:40 IMPRESSION: L4-5: Disc herniation. Severe spinal stenosis. This has progressed since 12.23.21 Electronically Signed: Dallas Arndt MD at 21:05 EDT , Physical Exam Narrative Physical exam: General: Alert, Oriented x3, Cooperative, No apparent distress, obese HEENT: Atraumatic Oral: Moist Mucosa Neck: Supple Lungs: Diminished to auscultation Cardiovascular: HS I+II, regular, no murmurs Abdomen: Bowel Sounds Present, Soft, Non Tender Extremities: Bilateral leg edema +2, [place] wrap Assessment & Plan Assessment/Plan (1) Cellulitis: QUALIFIERS: Laterality: right Site of cellulitis: extremity Site of cellulitis of extremity: lower extremity Qualified Code(s): L03.115 - Cellu litis of right lower limb PLAN: 1. Acute staph aureus bacteremia, history of MSSA, Enterobacter bacteremia Repeat blood cultures pending. Echo shows EF 55%, no valvular abnormalities ID following, continue IV cefepime 2. Acute cellulitis of lower extremities, history of recurrent foot infections, follows longitudinally in the wound center Acute DVT ruled out on admission. Continue on IV antibiotic Wound RN following.Podiatry consulted. Going for bone debridement tomorrow. 3. Bilateral leg edema, likely multifactorial secondary to fluid overload state/severe hypoalbuminemia of 1.3/FELI BNPep on 01/05/22 was 2661.5. 2D echo shows EF 55%, indeterminate diastolic dysfunction Patient did not tolerate trial of Lasix as her Cr worsened Continue with [place] wrap 4. Anemia, mixed etiology?iron deficiency anemia/anemia of chronic disease with an element of hemodilution Hemoglobin dropped to 6.9, s/p 1 pRBC transfusion last night Repeat Hb 7.5. Will trend 5. FELI on CKD stage IV, admitting creatinine was 2.95 Creatinine today is 3.65, nephrology consult Urine sodium is 12, urine creatinine 336 FeNa 0.1%. Continue to hold IV Lasix Maintain optimal blood pressures Repeat blood work in a.m. 6. Hypotension, multifactorial, likely secondary to medication side effect Will decrease Coreg to 3.125mg BID, Continue with holding parameters 7. Hyponatremia, likely secondary to hypovolemia, sodium is 131, will continue to monitor 8. Type II DM, blood sugar fairly controlled Continue to monitor with insulin sliding scale with blood glucose checks 9. Back pain, chronic, status post recent back injections, discussed with Dr. Matute, patient is on oral oxycodone MRI of the spine on showed disc herniation, severe spinal stenosis. Neurosurgery consulted -recommends conservative management 10. DVT prophylaxis - Heparin SC Charges/Coding Visit Charges Inpatient E&M: 55283 Subs Hosp L2
--- NOTE | 2022-01-07 10:01 | PCM.PN.ID ---
Physical Exam Narrative Not feeling well, still cough, abd/back pain. No fever. Const General Appearance: cooperative Resp clear to auscultation bilaterally Auscultation: diminished lung sounds Cardio regular rate and regular rhythm GI soft to palpation, non-tender and non-distended Skin Skin Narrative: feet wrapped ID ID: Route of nutrition/ use of supplements: [] Nutritional Intake: [] IV Site: [] Tirado Catheter: [] Assessment & Plan Assessment/Plan (1) Bacteremia: PLAN: MSSA bacteremia. Suspected source is bilateral foot infection. Wound cxs from feet with staph and GNR. Cont cefepime for GNR coverage. Pt has h/o PsA, klebs, and enterobacter foot infection within past few months. Repeat bcx today, TTE showed no veg. Podiatry following. MRI spine showed worsening stenosis. Osteo seen in foot. Will follow
[2022-01-07] MEDS: guaiFENesin/D-Methorphan TAB.SR.12H 1 TABLET PO ×2 (10:29→21:57)
[2022-01-07] MEDS: 0.9% Saline Lock 10 ML Syringe IV (10:29)
--- NOTE | 2022-01-07 10:56 | PCM.PN.REN ---
Subjective Subjective No new complaints. Objective Data Objective Data Vital Signs: Vital Signs Temp Pulse Resp BP Pulse Ox 98.1 F 70 15 113/63 98 01/07/22 08:40 01/07/22 08:40 01/07/22 08:40 01/07/22 08:40 01/07/22 08:40 Oxygen Delivery Method Room Air Weight: 95.2 kg Body Mass Index (BMI) 33.8 Intake & Output: Intake and Output for Last 24 Hours 01/05/22 01/06/22 01/07/22 23:59 23:59 23:59 Intake Total 1827.5 / 1827.5 1510 / 1510 1430 / 1430 Output Total 300 / 300 0 / 0 Balance 1827.5 / 1827.5 1210 / 1210 1430 / 1430 Lab / Micro Data Result Diagrams: 01/07/22 06:15 01/07/22 06:15 Labs: Laboratory Results - last 24 hr 01/06/22 11:34: POC Glucose 214 H 01/06/22 16:48: POC Glucose 155 H 01/06/22 21:44: POC Glucose 169 H 01/06/22 22:25: WBC 11.6 H, RBC 2.43 L, Hgb 6.9 L, Hct 21.2 L, MCV 87.2, MCH 28.4, MCHC 32.5, RDW Std Deviation 46.1 H, RDW Coeff of Fior 14.3, Plt Count 214, MPV 12.4 H, Immature Gran % (Auto) 1.100 H, Neut % (Auto) 87.6 H, Lymph % (Auto) 5.0 L, [place] % (Auto) 5.3, Eos % (Auto) 0.8, Baso % (Auto) 0.2, Absolute Neuts (auto) 10.1 H, Absolute Lymphs (auto) 0.58 L, Nucleated RBC % 0, Differential Comment 01/06/22 22:25: Sodium 132 L, Potassium 4.0, Chloride 102, Carbon Dioxide 20.0 L, Anion Gap 10, BUN 71 H, Creatinine 3.78 H, Estim Creat Clear Calc 15.56, Est GFR (MDRD) Af Amer 16 L, Est GFR (MDRD) Non-Af 13 L, BUN/Creatinine Ratio 18.8, Glucose 157 H, Calcium 7.7 L 01/06/22 23:40: Blood Type O POSITIVE, Antibody Screen NEGATIVE, Crossmatch See Detail 01/07/22 06:15: WBC 12.0 H, RBC 2.69 L, Hgb 7.5 L, Hct 23.4 L, MCV 87.0, MCH 27.9, MCHC 32.1, RDW Std Deviation 46.3 H, RDW Coeff of Fior 14.5, Plt Count 215, MPV 12.9 H, Immature Gran % (Auto) 0.800, Neut % (Auto) 84.9 H, Lymph % (Auto) 7.0 L, [place] % (Auto) 5.5, Eos % (Auto) 1.6, Baso % (Auto) 0.2, Absolute Neuts (auto) 10.2 H, Absolute Lymphs (auto) 0.84, Nucleated RBC % 0 01/07/22 06:15: Sodium 131 L, Potassium 4.0, Chloride 102, Carbon Dioxide 21.0, Anion Gap 8, BUN 77 H, Creatinine 3.65 H, Estim Creat Clear Calc 16.11, Est GFR (MDRD) Af Amer 17 L, Est GFR (MDRD) Non-Af 14 L, BUN/Creatinine Ratio 21.1 H, Glucose 163 H, Calcium 7.7 L, Total Bilirubin 1.00, AST 360 H, ALT 71 H, Alkaline Phosphatase 511 H, Total Protein 6.0 L, Albumin 1.3 L, Globulin 4.7 H, Albumin/Globulin Ratio 0.3 L 01/07/22 08:13: POC Glucose 173 H Micro: Microbiology 01/07/22 03:55 Stool Stool Occult Blood (MIKE) - Final 01/05/22 01:15 Wound - Left Foot Gram Stain - Final 01/05/22 01:15 Wound - Left Foot Wound Culture - Preliminary Staphylococcus aureus GNR lactose baked and graphite inspector Alpha hemolytic organism 01/05/22 01:15 Wound - Right Foot Gram Stain - Final 01/05/22 01:15 Wound - Right Foot Wound Culture - Preliminary Staphylococcus aureus GNR Poss Pseudomonas sp Gram negative elinor 01/05/22 00:25 Urine Catheter - Catheter Urine Culture - Final Culture exhibits no growth. 01/05/22 01:00 Blood Culture (Wb) - Left Hand Bacteria Detection (PCR) - Final Staphylococcus aureus 01/05/22 01:00 Blood Culture (Wb) - Left Hand Blood Culture - Final Staphylococcus aureus 01/05/22 00:45 Blood Culture (Wb) - Arm Left Blood Culture - Final Staphylococcus aureus 01/05/22 02:23 Nasal Secretion SARS-CoV-2 & FLU Antigen (Rapid) - Final Radiography Diagnostic Testing: Radiology Impression Echocardiogram 01/06/22 11:05 Interpretation Summary The estimated ejection fraction is 55 %. Diastolic function is indeterminate. Trivial mitral valve insufficiency. No significant valvular vegetations seen Ordering Physician: Annie Steven Referring Physician: MD Jeaneth Raúl Performed By: Juancarlos Sands RCS Lower Extremity MRI 01/06/22 12:13 IMPRESSION: 1. Moderate distal peroneal tenosynovitis. 2. Moderate peroneus longus tenosynovitis. 3. Soft tissue plantar ulcer with fluid around the fifth metatarsal without interval development of bone edema of the partially amputated fifth metatarsal. The amount of fluid is decreased but still can signify an abscess. However, there is sever motion artifact making it difficult to assess. 4. There is increased arthropathy of the navicular-cuneiform articulations and intercuneiform articulations since the prior study with increased fluid. Electronically Signed: Dallas Arndt MD at 16:50 EDT , Lower Extremity MRI 01/06/22 12:52 IMPRESSION: 1. Soft tissue swelling and ulcer of the plantar forefoot redemonstrated. It is smaller than the prior MRI. This suggests an infectious process. 2. Findings concerning for osteomyelitis at the distal portion of the partial amputation site of the 5th digit. However this area is difficult to evaluate due to sever motion artifact. a. Electronically Signed: Dallas Arndt MD at 19:41 EDT , Lumbar Spine MRI 01/06/22 14:40 IMPRESSION: L4-5: Disc herniation. Severe spinal stenosis. This has progressed since 3.. Electronically Signed: Dallas Arndt MD at 21:05 EDT , Chest X-Ray 01/07/22 09:30 IMPRESSION: Normal x-ray examination of the chest. Electronically Signed: Ronnie Saavedra MD at 10:02 EDT , Physical Exam Narrative Alert awake oriented x 3 no obvious distress no pallor no icterus no JVD s1s2 no murmurs lungs clear abdomen soft no organomegaly ++ edema no cyanosis Assessment & Plan Assessment/Plan (1) FELI (acute kidney injury): PLAN: Patient has known history of CKD stage IIIb with baseline creatinine around 1.8-2.0. Several fluctuations over the last several years. At baseline she has significant proteinuria likely related to diabetic nephropathy. Urine analysis this admission is comparable. Was admitted with a creatinine of 2.4, improved to 2.2 and has increased to 3.2. Blood pressure has been borderline. Echocardiogram reviewed. Blood pressure medications have been held. Recent imaging did not show any hydronephrosis. Most likely acute renal failure is related to low blood pressure. Blood pressure is somewhat better today, creatinine is about the same. Most likely ischemic injury due to low blood pressure. Continue to hold Lasix for today as well. No need to give fluids
[2022-01-07] MEDS: DAKIN'S SOL HALF STRENGTH (=0.25%) 1 APPLIC TOPICAL (12:05)
[2022-01-07 12:16] LABS: Bedside Glucose 130 mg/dL (74-106)
--- NOTE | 2022-01-07 13:34 | PCM.PROGNOTE ---
Subjective Subjective This is a 56-year-old female seen for follow-up of bilateral foot wounds and right lower extremity cellulitis. She is seen sitting in a recliner with her legs elevated. She does not complain of any pain in her legs or feet however does complain of severe back pain. She denies any constitutional symptoms today. Objective Data Objective Data Vital Signs: Vital Signs Temp Pulse Resp BP Pulse Ox 98.1 F 68 15 113/63 98 01/07/22 08:40 01/07/22 11:07 01/07/22 08:40 01/07/22 08:40 01/07/22 08:40 Oxygen Delivery Method Room Air Weight: 95.2 kg Body Mass Index (BMI) 33.8 Intake & Output: Intake and Output for Last 24 Hours 01/05/22 01/06/22 01/07/22 23:59 23:59 23:59 Intake Total 1827.5 / 1827.5 1510 / 1510 1480 / 1480 Output Total 300 / 300 0 / 0 Balance 1827.5 / 1827.5 1210 / 1210 1480 / 1480 Lab / Micro Data Result Diagrams: 01/07/22 06:15 01/07/22 06:15 Labs: Laboratory Results - last 24 hr 01/06/22 16:48: POC Glucose 155 H 01/06/22 21:44: POC Glucose 169 H 01/06/22 22:25: WBC 11.6 H, RBC 2.43 L, Hgb 6.9 L, Hct 21.2 L, MCV 87.2, MCH 28.4, MCHC 32.5, RDW Std Deviation 46.1 H, RDW Coeff of Fior 14.3, Plt Count 214, MPV 12.4 H, Immature Gran % (Auto) 1.100 H, Neut % (Auto) 87.6 H, Lymph % (Auto) 5.0 L, [place] % (Auto) 5.3, Eos % (Auto) 0.8, Baso % (Auto) 0.2, Absolute Neuts (auto) 10.1 H, Absolute Lymphs (auto) 0.58 L, Nucleated RBC % 0, Differential Comment 01/06/22 22:25: Sodium 132 L, Potassium 4.0, Chloride 102, Carbon Dioxide 20.0 L, Anion Gap 10, BUN 71 H, Creatinine 3.78 H, Estim Creat Clear Calc 15.56, Est GFR (MDRD) Af Amer 16 L, Est GFR (MDRD) Non-Af 13 L, BUN/Creatinine Ratio 18.8, Glucose 157 H, Calcium 7.7 L 01/06/22 23:40: Blood Type O POSITIVE, Antibody Screen NEGATIVE, Crossmatch See Detail 01/07/22 06:15: WBC 12.0 H, RBC 2.69 L, Hgb 7.5 L, Hct 23.4 L, MCV 87.0, MCH 27.9, MCHC 32.1, RDW Std Deviation 46.3 H, RDW Coeff of Firo 14.5, Plt Count 215, MPV 12.9 H, Immature Gran % (Auto) 0.800, Neut % (Auto) 84.9 H, Lymph % (Auto) 7.0 L, [place] % (Auto) 5.5, Eos % (Auto) 1.6, Baso % (Auto) 0.2, Absolute Neuts (auto) 10.2 H, Absolute Lymphs (auto) 0.84, Nucleated RBC % 0 01/07/22 06:15: Sodium 131 L, Potassium 4.0, Chloride 102, Carbon Dioxide 21.0, Anion Gap 8, BUN 77 H, Creatinine 3.65 H, Estim Creat Clear Calc 16.11, Est GFR (MDRD) Af Amer 17 L, Est GFR (MDRD) Non-Af 14 L, BUN/Creatinine Ratio 21.1 H, Glucose 163 H, Calcium 7.7 L, Total Bilirubin 1.00, AST 360 H, ALT 71 H, Alkaline Phosphatase 511 H, Total Protein 6.0 L, Albumin 1.3 L, Globulin 4.7 H, Albumin/Globulin Ratio 0.3 L 01/07/22 08:13: POC Glucose 173 H 01/07/22 12:07: POC Glucose 130 H Micro: Microbiology 01/07/22 03:55 Stool Stool Occult Blood (MIKE) - Final 01/05/22 01:15 Wound - Left Foot Gram Stain - Final 01/05/22 01:15 Wound - Left Foot Wound Culture - Preliminary Staphylococcus aureus 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 01/05/22 01:00 Blood Culture (Wb) - Left Hand Bacteria Detection (PCR) - Final Staphylococcus aureus 01/05/22 01:00 Blood Culture (Wb) - Left Hand Blood Culture - Final Staphylococcus aureus 01/05/22 00:45 Blood Culture (Wb) - Arm Left Blood Culture - Final Staphylococcus aureus 01/05/22 02:23 Nasal Secretion SARS-CoV-2 & FLU Antigen (Rapid) - Final Radiography Diagnostic Testing: Radiology Impression Lower Extremity MRI 01/06/22 12:13 IMPRESSION: 1. Moderate distal peroneal tenosynovitis. 2. Moderate peroneus longus tenosynovitis. 3. Soft tissue plantar ulcer with fluid around the fifth metatarsal without interval development of bone edema of the partially amputated fifth metatarsal. The amount of fluid is decreased but still can signify an abscess. However, there is sever motion artifact making it difficult to assess. 4. There is increased arthropathy of the navicular-cuneiform articulations and intercuneiform articulations since the prior study with increased fluid. Electronically Signed: Dallas Arndt MD at 16:50 EDT , Lower Extremity MRI 01/06/22 12:52 IMPRESSION: 1. Soft tissue swelling and ulcer of the plantar forefoot redemonstrated. It is smaller than the prior MRI. This suggests an infectious process. 2. Findings concerning for osteomyelitis at the distal portion of the partial amputation site of the 5th digit. However this area is difficult to evaluate due to sever motion artifact. a. Electronically Signed: Dallas Arndt MD at 19:41 EDT , Lumbar Spine MRI 01/06/22 14:40 IMPRESSION: L4-5: Disc herniation. Severe spinal stenosis. This has progressed since 12.23.21 Electronically Signed: Dallas Arndt MD at 21:05 EDT , Chest X-Ray 01/07/22 09:30 IMPRESSION: Normal x-ray examination of the chest. Electronically Signed: Ronnie Saavedra MD at 10:02 EDT , Physical Exam Const alert, oriented x3, no apparent distress and well nourished General Appearance: cooperative and comfortable HEENT normocephalic Eyes General Eye: normal appearance of both eyes Neck General: normal visual inspection Lymph Lymphatic: no lymphadenopathy noted and no lymphedema noted Resp normal respiratory effort Cardio regular rate and regular rhythm Extremity normal capillary refill and no calf tenderness Skin no rashes or lesions noted and no jaundice Wound Narrative: Left foot plantar ulceration subfifth metatarsal secondary to Charcot deformity demonstrates healthy granular base with hyperkeratotic rim. No localized erythema about ulcer site. No erythema dorsal foot. Ulceration demonstrates no purulent drainage or malodor. Surrounding skin is atrophic. Right foot plantar ulceration subfifth metatarsal secondary to Charcot foot deformity demonstrates healthy granular base with hyperkeratotic rim and macerated tissue. There is serosanguineous drainage from the ulcer site. Ulceration demonstrates no localized erythema or malodor. Dorsal foot demonstrates erythema extending proximally to the midfoot. Palpable fluctuance or crepitus noted to palpation. However upon squeezing the lateral aspect of the foot purulent drainage along with blood was expressible from the ulcer site at the most lateral aspect. Ulcerative site probes to bone. Neuro oriented x3 and moves all extremities Assessment & Plan Assessment/Plan (1) FELI (acute kidney injury): (2) Bacteremia: (3) SIRS (systemic inflammatory response syndrome): (4) Acute lumbar radiculopathy: (5) Diabetic foot infection: (6) Non-pressure chronic ulcer of other part of left foot with fat layer exposed: (7) Cellulitis of right foot: (8) Non-pressure chronic 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 layer exposed: (9) Charcot's joint, left ankle and foot: (10) Charcot's joint, right ankle and foot: PLAN: This is a 56 F who presents with bilateral plantar foot ulcerations with right lower extremity cellulitis complicated by 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 She reports swelling to lower extremities 3 days duration with no improvement despite wrapping her legs. At time of admission she also demonstrated cellulitis of the right lower extremity. Vascular: Negative DVT on venous ultrasound. Adequate vascular perfusion to heal. Vascular studies from 09/01/2020 demonstrate triphasic waveforms. Upon admission she has bilateral pitting edema to the legs and feet and beta natriuretic peptide 2661.5 concerning for CHF, medicine following. She has been following with in the wound care center for debridements and has been nonweightbearing bilateral lower extremities utilizing wheelchair for ambulation. She has history of Charcot foot deformity bilateral and demonstrates no gross laxity or crepitus with manipulation. Hemoglobin A1c June 2021 was 9%. He has history of PsA, Klebs, & enterobacter in foot within last few months. she has history of coagulase-negative staph from wound culture 09/17/2021 and recent wound cultures demonstrate staph and gram-negative elinor. Infectious disease following and placed her on cefepime for gram-negative coverage. MRI bilateral foot from 01/06/2022 was reviewed. Radiologist interpreted left foot osteomyelitis, I feel radiology reads were switched and that she likely has suspected osteo of the right foot, which correlates with physical exam findings. Left lower extremity foot ulceration currently demonstrates no localized signs of infection. Will continue to monitor for changes. Right lower extremity plantar foot ulceration demonstrates no localized signs of infection about the ulcerative site but does demonstrate erythema to the dorsal aspect of the foot extending proximally to the midfoot, this is improving. Upon squeezing lateral aspect of the foot purulent drainage and blood emerged from the most lateral aspect of the ulcerative site. This ulcerative site does probe to bone today. Ulcerative sites bilaterally were painted with Betadine and dressed with Dakin's wet-to-dry and [place] wraps under mild compression applied to bilateral lower extremities. Recommend daily dressing changes with Dakin's wet-to-dry and [place] wrap under mild compression. Following debridement and continued IV antibiotics WBC currently 12.0. Given new exam findings with continued purulence and ulcerative probe to bone, we will plan to do an incision and drainage with debridement of ulcerative site and bone biopsy scheduled tomorrow 01/08/22 at 2 PM. I discussed with her today the need to go to the OR for debridement. Consent for procedure to be obtained. I discussed that this is a limb salvage case and that she is at possible risk for loss of limb. No promises or guarantees were made. Patient to be n.p.o. after midnight. Orders to be placed. Will discuss with medicine team. Communicated with her nurse, Sumaya pertaining to her surgical procedure and she will assist in obtaining consent. Continued nonweightbearing status to bilateral lower extremities with wheelchair to assist ambulation. Recommending SNF placement and following with or myself at the wound care center upon discharge. Infectious disease following is appreciated. Medicine following for medical management is appreciated. Podiatry will continue to follow post debridement. Please call for any questions or concerns. Dr. Kayden Gann Jr. D.P.M. [facility] [phone] Note: [employer] speech recognition matzo forming machine operator software was used to create portions of this document. Sound-alike and misspelled words, as well as other matzo forming machine operator errors may be contained in the documentation.
[2022-01-07 14:16] LABS: Bacteria 0 SEEN /hpf (None Seen); Mucous, Urine 0 SEEN /hpf (<or=2+); Red Blood Cells-Urine 0 SEEN /hpf (0-5); White Blood Cells 0 SEEN /hpf (0-5)
[2022-01-07 14:17] LABS: Color, Urine Yellow (Yellow); Glucose, Dipstick 50 mg/dl (Normal); Ketone-Dipstick 5 mg/dl (Negative); Leukocyte Esterase-Dipstick Negative /ul (Negative); Nitrite-Dipstick Negative (Negative); Occult Blood-Urine 50 /ul (Negative); Protein-Dipstick 100 mg/dl (Negative); Specific Gravity, Urine 1.015 (1.002-1.030); Urine Bilirubin Dipstick Negative (Negative); Urine Clarity Sl. Cloudy (Clear); Urine Urobilinogen Normal (Normal)
[2022-01-07 14:22] LABS: Amorphous Sediment 1+; Squamous Epithelial Cells - UA 0-5 SEEN /hpf (5-10); Urine Sodium 12 mmol/L (Not Establ.)
[2022-01-07 14:39] LABS: Osmolality, Urine 336 mOsm/KG
--- NOTE | 2022-01-07 15:13 | PCM.CONS.B ---
Consult Date of Consult: 01/07/22 Chandni is seen at the request of Dr. Barreto and with the patient's permission. In the room with me and the patient was her nurse Sumaya. The patient is being seen for low back pain. She has had episodes of low back pain in the past. Dr. Matute has been able to help her with epidural injections. This last injection 3 weeks ago however has not helped her very much. An MRI scan of her lumbar spine was done yesterday. Chandni states that she has been a diabetic since she was in her 20s. She really does not have any leg pain per se that is no radicular pain. Its only low back pain. She denies any bowel or bladder dysfunction. She denies history of unexplained weight loss night fever sweats or chills. On examination she is areflexic no surprise because of her advanced polyneuropathy. He has poor muscle tone and general weakness in both her lower extremities. She has no long tract signs. Clonus is absent Babinski's are downgoing. I reviewed her MRI scan that was done yesterday. She has an early grade 1 degenerative spondylolisthesis of L4 on L5. This is giving her a moderate spinal stenosis. Radiology referred to it as severe however I strongly disagree with that. It is moderate at best. I explained to Chandni that she does not have a surgical problem in her low back. I do not doubt that it is causing her the discomfort but surgery would be of no help to her at all. In addition she would be a great risk. I will discuss with Dr. Matute what other measures we might take to give her some degree of relief. This is the end of consultation on Chandni Carrillo. This is Dr. Cleary dictating.
[2022-01-07 17:46] LABS: Bedside Glucose 284 mg/dL (74-106)
[2022-01-07] MEDS: Paroxetine 20 MG Tablet PO (21:56)
[2022-01-07] MEDS: Atorvastatin Calcium 80 MG Tablet PO (21:56)
[2022-01-07] MEDS: MELATONIN 10 MG TABLET PO (21:56)
[2022-01-07] MEDS: cycloBENZAPRine HCl 5 MG TABLET PO (21:57)
[2022-01-07 22:21] LABS: Bedside Glucose 99 mg/dL (74-106)
[2022-01-08] VITALS (23 sets, daily range): BP systolic 87–122; BP diastolic 51–68; PULSE 57–78; RESP 12–20; TEMP 36.1–37.1; O2SAT 16–99; BMI 33.8
[2022-01-08] MEDS: Benzonatate 100 MG Capsule PO ×2 (03:13→09:08)
[2022-01-08 05:51] LABS: Absolute Lymphocyte Count 0.83 X10^3/uL (0.83-4.51); Basophil# 0.03 X10^3/uL; Basophil% 0.3 % (0-1); Eosinophil# 0.26 X10^3/uL; Eosinophils% 2.6 % (0-5); Hematocrit 23.1 % (37-47); Hemoglobin 7.5 g/dL (12.0-15.0); Lymphocyte # 0.83 X10^3/ul (0.83-4.51); Lymphocyte % 8.4 % (19-41); Mean Corp Hgb Conc 32.5 g/dL (32-36); Mean Corpuscular Hgb 27.8 pg (27.0-32.0); Mean Corpuscular Volume 85.6 fL (81-99); Mean Platelet Vol. 12.6 fl (6.2-12.0); Monocyte# 0.62 X10^3/uL; Monocyte% 6.3 % (0-10); NRBC Flagged by Analyzer 0 % (0-5); Neutrophil % 81.1 % (47-70); Platelet Count 248 K/mm3 (150-450); White Blood Count 9.9 K/mm3 (4.4-11.0)
--- NOTE | 2022-01-08 05:55 | EKG12_ITS ---
Test Reason : AM EKG Blood Pressure : / mmHG Vent. Rate : 075 BPM Atrial Rate : 075 BPM P-R Int : 148 ms QRS Dur : 096 ms QT Int : 400 ms P-R-T Axes : 044 039 043 degrees QTc Int : 446 ms Normal sinus rhythm Nonspecific T wave abnormality Abnormal ECG Confirmed by ELEN DELVALLE, FELTON ([id number]), mapping editor DAVID CARCAMO ([id number]) on 01/12/2022 1:16:03 PM Referred By: DR DODGE Confirmed By:FELTON MYRICK MD
[2022-01-08] MEDS: oxyCODONE 5 MG Tablet PO ×2 (05:56→22:28)
[2022-01-08 06:11] LABS: Bedside Glucose 94 mg/dL (74-106)
[2022-01-08 06:15] LABS: Anion Gap 9 (5-15); BUN 87 mg/dL (7-18); BUN/Creat Ratio 23.1 RATIO (10-20); Calcium,Total 7.8 mg/dL (8.5-10.1); Chloride 101 mmol/L (98-107); Creatinine, Serum 3.77 mg/dL (0.55-1.02); EST Glomerular Filtration Rate 13 mL/min (>60); Est Glom Filt Rate - Afr Amer 16 mL/min (>60); Glucose 90 mg/dL (74-106); Sodium Level 131 mmol/L (136-145)
[2022-01-08 06:52] LABS: Erythrocyte Sedimentation Rate 108 mm/hr (0-30)
[2022-01-08] MEDS: DAKIN'S SOL HALF STRENGTH (=0.25%) 1 APPLIC TOPICAL (08:43)
[2022-01-08 09:00] LABS: Hemoglobin A1c 9.1 % (3.8-5.6)
[2022-01-08] MEDS: Pramipexole Di-HCl 0.5 MG Tablet 1.5 MG PO ×2 (09:00→22:17)
[2022-01-08] MEDS: guaiFENesin/D-Methorphan TAB.SR.12H 1 TABLET PO ×2 (09:00→22:18)
[2022-01-08] MEDS: Isosorbide Mononitrate 30 MG Tablet PO (09:01)
[2022-01-08] MEDS: hydrOXYzine PAM 25 MG Capsule PO (09:01)
[2022-01-08] MEDS: Gabapentin 300 MG Capsule PO ×2 (09:01→22:18)
[2022-01-08] MEDS: buPROPion (XL) 150 MG TABLET.XL PO (09:01)
[2022-01-08] MEDS: Glucerna Shake 120 ML LIQUID PO (09:08)
--- NOTE | 2022-01-08 10:56 | PCM.PN.REN ---
Subjective Subjective Following for FELI on CKD patient resting in bed, denies any N/V/D. States has good appetite. Patient stated to me she has not voided in 3 days, patient's nurse states patient voiding often througout the day every day. Objective Data Objective Data Vital Signs: Vital Signs Temp Pulse Resp BP Pulse Ox 98.5 F 75 16 105/61 99 01/08/22 08:49 01/08/22 08:49 01/08/22 08:49 01/08/22 08:49 01/08/22 08:49 Oxygen Delivery Method Room Air Weight: 95.2 kg Body Mass Index (BMI) 33.8 Intake & Output: Intake and Output for Last 24 Hours 01/06/22 01/07/22 01/08/22 23:59 23:59 23:59 Intake Total 1510 / 1510 1720 / 1720 50 / 50 Output Total 300 / 300 600 / 600 0 / 0 Balance 1210 / 1210 1120 / 1120 50 / 50 Lab / Micro Data Result Diagrams: 01/08/22 05:30 01/08/22 05:30 Labs: Laboratory Results - last 24 hr 01/06/22 23:40: Crossmatch See Detail 01/07/22 12:07: POC Glucose 130 H 01/07/22 14:08: Urine Color Yellow, Urine Clarity Sl. Cloudy, Urine pH 5.0, Ur Specific [place] 1.015, Urine Protein 100 H, Urine Glucose (UA) 50 H, Urine Ketones 5 H, Urine Occult Blood 50 H, Urine Nitrite Negative, Urine Bilirubin Negative, Urine Urobilinogen Normal, Ur Leukocyte Esterase Negative, Urine RBC 0 SEEN, Urine WBC 0 SEEN, Ur Squamous Epith Cells 0-5 SEEN, Amorphous Sediment 1+, Urine Bacteria 0 SEEN, Urine Mucus 0 SEEN 01/07/22 14:08: Urine Osmolality 336, Ur Random Sodium 12 01/07/22 17:35: POC Glucose 284 H 01/07/22 22:10: POC Glucose 99 01/08/22 05:30: WBC 9.9, RBC 2.70 L, Hgb 7.5 L, Hct 23.1 L, MCV 85.6, MCH 27.8, MCHC 32.5, RDW Std Deviation 47.0 H, RDW Coeff of Fior 15.0 H, Plt Count 248, MPV 12.6 H, Immature Gran % (Auto) 1.300 H, Neut % (Auto) 81.1 H, Lymph % (Auto) 8.4 L, [place] % (Auto) 6.3, Eos % (Auto) 2.6, Baso % (Auto) 0.3, Absolute Neuts (auto) 8.0 H, Absolute Lymphs (auto) 0.83, Nucleated RBC % 0, ESR 108 H 01/08/22 05:30: Sodium 131 L, Potassium 4.0, Chloride 101, Carbon Dioxide 21.0, Anion Gap 9, BUN 87 H, Creatinine 3.77 H, Estim Creat Clear Calc 15.60, Est GFR (MDRD) Af Amer 16 L, Est GFR (MDRD) Non-Af 13 L, BUN/Creatinine Ratio 23.1 H, Glucose 90, Calcium 7.8 L, C-React Prot Ext Range 175.00 H 01/08/22 05:30: Hemoglobin A1c 9.1 H 01/08/22 05:56: POC Glucose 94 Micro: Microbiology 01/05/22 01:15 Wound - Right Foot Gram Stain - Final 01/05/22 01:15 Wound - Right Foot Wound Culture - Final Staphylococcus aureus Pseudomonas aeroginosa Enterobacter cloacae complex 01/05/22 01:15 Wound - Left Foot Gram Stain - Final 01/05/22 01:15 Wound - Left Foot Wound Culture - Preliminary Staphylococcus aureus Enterobacter cloacae complex Alpha hemolytic organism 01/07/22 03:55 Stool Stool Occult Blood (MIKE) - Final 01/05/22 00:25 Urine Catheter - Catheter Urine Culture - Final Culture exhibits no growth. 01/05/22 01:00 Blood Culture (Wb) - Left Hand Bacteria Detection (PCR) - Final Staphylococcus aureus 01/05/22 01:00 Blood Culture (Wb) - Left Hand Blood Culture - Final Staphylococcus aureus 01/05/22 00:45 Blood Culture (Wb) - Arm Left Blood Culture - Final Staphylococcus aureus 01/05/22 02:23 Nasal Secretion SARS-CoV-2 & FLU Antigen (Rapid) - Final Physical Exam Narrative Alert awake oriented x 3 no JVD s1s2 no murmurs lungs clear abdomen soft, non-tender ++ edema b/l legs Assessment & Plan Assessment/Plan (1) FELI (acute kidney injury): PLAN: - FELI on CKD stage III possibly from hypotension, infection. Patient is nonoliguric. Bladder scan today post void 100ml. Recent imaging no hydro. If needed patient is agreeable for preston. SCr 2.9mg/dL on admission and has increased to 3.77mg/dL today. Hopefully SCr will level off. At this time there is no acute indication for UTILITY SYSTEM REPAIRER. No acidemia, no hyperkalemia. No significant fluid overload, reviewed CXR - CKD stage IIIb with baseline creatinine around 1.8-2.0. Several fluctuations over the last several years. Significant proteinuria likely related to diabetic nephropathy. Urine analysis this admission is comparable. - repeat bc from 01/07 pending. On Cefepime. ID following - B/L lower extremity ulcerations/cellulitis. I&D surgery today - b/l leg edema. Patient received IV lasix x1 but Creatinine increased. Albumin is 1.3. 2D echo shows EF 55%, indeterminate diastolic dysfunction - bps were low, SBP 90-100s but have improved as of today, off antihypertensives - s/p PRBC, hgb 7.5 today - labs ordered for am
--- NOTE | 2022-01-08 11:45 | PCM.PN.HOSP ---
Subjective Subjective Follow-up on bacteremia/bilateral leg cellulitis/chronic ulcers/back pain: Patient was seen and examined. No acute complaints. Patient is going to the OR for bone debridement today by podiatry Objective Data Objective Data Vital Signs: Vital Signs Temp Pulse Resp BP Pulse Ox 98.5 F 75 16 105/61 99 01/08/22 08:49 01/08/22 08:49 01/08/22 08:49 01/08/22 08:49 01/08/22 08:49 Oxygen Delivery Method Room Air Weight: 95.2 kg Body Mass Index (BMI) 33.8 Intake & Output: Intake and Output for Last 24 Hours 01/06/22 01/07/22 01/08/22 23:59 23:59 23:59 Intake Total 1510 / 1510 1720 / 1720 50 / 50 Output Total 300 / 300 600 / 600 0 / 0 Balance 1210 / 1210 1120 / 1120 50 / 50 Lab / Micro Data Result Diagrams: 01/08/22 05:30 01/08/22 05:30 Labs: Laboratory Results - last 24 hr 01/06/22 23:40: Crossmatch See Detail 01/07/22 12:07: POC Glucose 130 H 01/07/22 14:08: Urine Color Yellow, Urine Clarity Sl. Cloudy, Urine pH 5.0, Ur Specific [place] 1.015, Urine Protein 100 H, Urine Glucose (UA) 50 H, Urine Ketones 5 H, Urine Occult Blood 50 H, Urine Nitrite Negative, Urine Bilirubin Negative, Urine Urobilinogen Normal, Ur Leukocyte Esterase Negative, Urine RBC 0 SEEN, Urine WBC 0 SEEN, Ur Squamous Epith Cells 0-5 SEEN, Amorphous Sediment 1+, Urine Bacteria 0 SEEN, Urine Mucus 0 SEEN 01/07/22 14:08: Urine Osmolality 336, Ur Random Sodium 12 01/07/22 17:35: POC Glucose 284 H 01/07/22 22:10: POC Glucose 99 01/08/22 05:30: WBC 9.9, RBC 2.70 L, Hgb 7.5 L, Hct 23.1 L, MCV 85.6, MCH 27.8, MCHC 32.5, RDW Std Deviation 47.0 H, RDW Coeff of Fior 15.0 H, Plt Count 248, MPV 12.6 H, Immature Gran % (Auto) 1.300 H, Neut % (Auto) 81.1 H, Lymph % (Auto) 8.4 L, [place] % (Auto) 6.3, Eos % (Auto) 2.6, Baso % (Auto) 0.3, Absolute Neuts (auto) 8.0 H, Absolute Lymphs (auto) 0.83, Nucleated RBC % 0, ESR 108 H 01/08/22 05:30: Sodium 131 L, Potassium 4.0, Chloride 101, Carbon Dioxide 21.0, Anion Gap 9, BUN 87 H, Creatinine 3.77 H, Estim Creat Clear Calc 15.60, Est GFR (MDRD) Af Amer 16 L, Est GFR (MDRD) Non-Af 13 L, BUN/Creatinine Ratio 23.1 H, Glucose 90, Calcium 7.8 L, C-React Prot Ext Range 175.00 H 01/08/22 05:30: Hemoglobin A1c 9.1 H 01/08/22 05:56: POC Glucose 94 Micro: Microbiology 01/05/22 01:15 Wound - Right Foot Gram Stain - Final 01/05/22 01:15 Wound - Right Foot Wound Culture - Final Staphylococcus aureus Pseudomonas aeroginosa Enterobacter cloacae complex 01/05/22 01:15 Wound - Left Foot Gram Stain - Final 01/05/22 01:15 Wound - Left Foot Wound Culture - Preliminary Staphylococcus aureus Enterobacter cloacae complex Alpha hemolytic organism 01/07/22 03:55 Stool Stool Occult Blood (MIKE) - Final 01/05/22 00:25 Urine Catheter - Catheter Urine Culture - Final Culture exhibits no growth. 01/05/22 01:00 Blood Culture (Wb) - Left Hand Bacteria Detection (PCR) - Final Staphylococcus aureus 01/05/22 01:00 Blood Culture (Wb) - Left Hand Blood Culture - Final Staphylococcus aureus 01/05/22 00:45 Blood Culture (Wb) - Arm Left Blood Culture - Final Staphylococcus aureus 01/05/22 02:23 Nasal Secretion SARS-CoV-2 & FLU Antigen (Rapid) - Final Physical Exam Narrative Physical exam: General: Alert, Oriented x3, Cooperative, No apparent distress, obese HEENT: Atraumatic Oral: Moist Mucosa Neck: Supple Lungs: Diminished to auscultation Cardiovascular: HS I+II, regular, no murmurs Abdomen: Bowel Sounds Present, Soft, Non Tender Extremities: Bilateral leg edema +2, [place] wrap Assessment & Plan Assessment/Plan (1) Cellulitis: QUALIFIERS: Site of cellulitis: extremity Site of cellulitis of extremity: lower extremity Laterality: right Qualified Code(s): L03.115 - Cellulitis of right lower limb PLAN: 1. Acute staph aureus bacteremia, history of MSSA, Enterobacter bacteremia Repeat blood cultures were negative on 01/06/22. Repeat blood cultures pending today Echo shows EF 55%, no valvular abnormalities ID following, continue IV cefepime 2. Acute cellulitis of lower extremities, history of recurrent foot infections, follows longitudinally in the wound center Acute DVT ruled out on admission. Continue on IV antibiotic Wound RN following.Podiatry consulted. Going for bone debridement today 3. Bilateral leg edema, likely multifactorial secondary to fluid overload state/severe hypoalbuminemia of 1.3/FELI BNPep on 01/05/22 was 2661.5. 2D echo shows EF 55%, indeterminate diastolic dysfunction Patient did not tolerate trial of Lasix as her Cr worsened Continue with [place] wrap 4. Anemia, mixed etiology?iron deficiency anemia/anemia of chronic disease with an element of hemodilution Hemoglobin dropped to 6.9, s/p 1 pRBC transfusion last night Repeat Hb 7.5. Will trend 5. FELI on CKD stage IV, admitting creatinine was 2.95 Creatinine today is 3.65, nephrology consult Urine sodium is 12, urine creatinine 336 FeNa 0.1%. Continue to hold IV Lasix Maintain optimal blood pressures Repeat blood work in a.m. 6. Hypotension, multifactorial, likely secondary to medication side effect Discontinue Coreg for now Continue with holding parameters 7. Hyponatremia, likely secondary to hypovolemia, sodium is 131, will continue to monitor 8. Type II DM, blood sugar fairly controlled Continue to monitor with insulin sliding scale with blood glucose checks 9. Back pain, chronic, status post recent back injections, discussed with Dr. Matute, patient is on oral oxycodone MRI of the spine on showed disc herniation, severe spinal stenosis. Neurosurgery consulted -recommends conservative management 10. DVT prophylaxis - Heparin SC Charges/Coding Visit Charges Inpatient E&M: 41521 Subs Hosp L2
--- NOTE | 2022-01-08 12:06 | PCM.PN.ID ---
Physical Exam Narrative Not feeling any better, no fever. OR today. Const General Appearance: cooperative Resp normal air movement and clear to auscultation bilaterally Cardio regular rate and regular rhythm GI soft to palpation, non-tender and non-distended Skin Skin Narrative: feet wrapped ID ID: Route of nutrition/ use of supplements: [] Nutritional Intake: [] IV Site: [] [place] Catheter: [] Assessment & Plan Assessment/Plan (1) Bacteremia: PLAN: MSSA bacteremia. Suspected source is bilateral foot infection. Wound cxs from feet with mssa, enterobacter, and pseudomonas. Cont cefepime. Pt has h/o PsA, klebs, and enterobacter foot infection within past few months. Repeat bcx today, TTE showed no veg. Podiatry following. MRI spine showed worsening stenosis. Osteo seen in foot. OR planned with podiatry today. Worsening FELI on CKD. Will follow
[2022-01-08 12:55] LABS: Bedside Glucose 162 mg/dL (74-106)
--- NOTE | 2022-01-08 13:12 | NURSING ---
report called to Erika in ac
--- NOTE | 2022-01-08 13:50 | CASEMGMT ---
[facility] that per-cert has been denied by [employer] and per to per number is . This social sciences instructor updated Dr. Steven on above information. Dr. Steven agreeable to completing per to per. Telephone call to per to per number, per voice message per to per to be initiated via e-mail to [email or web address]. This social sciences instructor sent e-mail request for per to per to mentioned e-mailed. PLAN: [facility] pending per to per outcome. Nusrat SALAZAR, MARYS
--- NOTE | 2022-01-08 13:51 | CASEMGMT ---
KELSIE IRELAND [facility] Prior Authorization Follow-up: This KELSIE IRELAND contacted [facility] prior territory service representative Meera regarding SNF LOC declination, peer to peer option and additional postop needs. Per Meera, if the surgery will result in a change in the patient's functional ability or treatment such as IV atb 3x/day than a new request can be submitted. If the surgery will not result in a change in the patient's functional ability or treatment than the peer to peer process should be followed. If the peer to peer is not completed, a new request can still be submitted. Gus Aleman RN CM
--- NOTE | 2022-01-08 14:00 | SOF_PTH ---
PATIENT: DIONY ROCHA LOC: [facility] U#:[id number] AGE/SX: 56/F ROOM: [facility] RE01/06/[address]: Dr. Rachel Okeefe MD : 1965 BED: 1 DIS: 01/14/2022 SPEC #: [id number] RECD: 01/08/22 15:45 STATUS: LON REIsrael #: [id number] ANEL: 01/08/22 14:[address]: Annie Steven DEPT: SURGICAL PATHOLOGY RECD BY: Angela Freedman ENTERED: 01/11/22 12:24 SP TYPE: SOFT TISS OTHR DR: MD Dr. Angel Stevens MD Dr. Mark Elderbrock, MD Dr. Michael Marshall, DPM DO Dr. Kike Romero MD Tissues: A - Soft tissues, NOS B - Toe, NOS C - Toe, NOS Procedures: Decalcification bone/plaque Surgery Specimen Level III Surgery Specimen Level IV HEADER OPERATION: Incision and debridement with bone biopsy, foot PRE-OP DIAGNOSIS: Cellulitis of right lower limb TISSUE SUBMITTED: A ? Right foot abscess tissue, B ? Right fifth metatarsal, C - Right fifth metatarsal clearance fragment MICROSCOPIC DIAGNOSIS A. Right foot abscess tissue: Extensive acute inflammation and abscess formation. B. Right fifth metatarsal: A piece of bone with acute osteomyelitis. C. right fifth metatarsal clearance fragment: A piece of bone with acute osteomyelitis. SJ:aristides 01/14/2022 MICROSCOPIC DESCRIPTION Slides are reviewed. GROSS DESCRIPTION A - Received in fixative is one container labeled with the patient's name and designated right foot abscess tissue. The specimen consists of multiple irregular fragments of light mahajan soft tissue that in aggregate measure 2 x 1.5 x 0.2 cm. The specimen is totally submitted in one cassette. B - Received in fixative is one container labeled with the patient's name and designated right fifth metatarsal. The specimen consists of a single irregular fragment of light mahajan soft tissue adherent to mahajan bone measuring 1 x 1 x 0.5 cm. The specimen is bisected and totally submitted in one cassette after decalcification. C - Received in fixative is one container labeled with the patient's name and designated right fifth metatarsal clearance fragment. The specimen consists of a single irregular fragment of mahajan bone measuring 1.3 x 1.2 x 0.8 cm. The specimen is sectioned and totally submitted in one cassette after decalcification. / AM:aristides 01/11/2022 TC:2 CPT: 21837 x2, [id number], 09464 x2
--- NOTE | 2022-01-08 14:40 | RAD_ITS ---
STUDY: INTRAOPERATIVE FLUOROSCOPY TECHNIQUE: The examination was performed with referring physician in attendance. Under fluoroscopic observation, fluoroscopic images were obtained. Radiologist was not present for the study. Radiologist did not perform the procedure. This dictation is for documentation of the radiation dosage only. There is no interpretation of the images. TOTAL NUMBER OF IMAGES: 1 COMPARISON: None RADIATION DOSE: 0.23 mGy FLUOROSCOPY TIME: 10 seconds REASON FOR EXAM: I D WITH BONE BX FOOT Female, 56 years old. FINDINGS: Images of the foot. RAD/Foot 2 Views IMPRESSION: Fluoroscopic assistance images were obtained. Dictation for documentation purposes only. Electronically Signed: Dallas Arndt MD at 17:16 EDT ,
--- NOTE | 2022-01-08 15:07 | CASEMGMT ---
Social Work This social insurance specialist obtained e-mail from patient [facility], [place] that peer to peer has been initiated and a followup call will be made to Dr. Steven as the number provided. PLAN: [facility] pending peer to peer outcome. Nusrat SALAZAR, FRANCISCO
--- NOTE | 2022-01-08 15:10 | CASEMGMT ---
Addendum entered by Danette Moss 01/08/22 15:14: Patient in surgery Original Note: Social Work This web content & social media manager has made three attempts to speak with patient in room about insurance pre-cert outcome and peer to peer, patient not in room all three times. Will continue to follow. Nusrat SALAZAR, FRANCISCO
--- NOTE | 2022-01-08 15:12 | CASEMGMT ---
Social Work Telephone call to patient daughter, Trisha. This psychiatric social worker supervisor updated Trisha that insurance denied skilled care for patient but a peer to peer is being completed. Trisha voiced understanding and request to be updated as new information is found out. Will continue to follow. Nusrat SALAZAR, FRANCISCO
[2022-01-08] MEDS: Lidocaine 1% (20 ml mdv) 20 ML Vial (15:14)
[2022-01-08] MEDS: Bupivacaine Mpf 0.5% 30 ML VIAL (15:14)
--- NOTE | 2022-01-08 15:32 | OP.PCM_ITS ---
Problems Associated Problem List Diagnoses (1) Cellulitis of right foot: (2) Non-pressure chronic 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 layer ex posed: (3) Abscess of right foot: (4) Osteomyelitis of metatarsal: (5) Diabetic foot infection: (6) Charcot's joint, right ankle and foot: Report of Operation Date of Procedure: 01/08/22 Pre-Operative Diagnosis: 1. Infected Right foot wound with abscess 2. Osteomyelelitis 5th metatarsal Right foot Post-Operative Diagnosis: 1. Infected Right foot wound with abscess 2. Osteomyelelitis 5th metatarsal Right foot Surgery/Procedure Performed:: Incision and drainage with sharp debridement of ulceration to partial thickness and debridement of bone, with bone biopsy fifth metatarsal right foot Description of Surgical Findings:: See operative note for findings Surgeon: Kayden Gann dental laboratory supervisor: Lavern Edgar Type of Anesthesia: Local (15 cc 1:1 mixture of 1% lidocaine plain and 0.5% Marcaine plain) and MAC Specimen's removed: Deep tissue right foot, bone fifth metatarsal right foot Estimated Blood Loss (mL): < 30cc Description of Procedure: HPI: Patient is a 56-year-old female with history of diabetes mellitus type 2 with peripheral polyneuropathy, bilateral plantar foot ulcerations, history of Charcot foot bilateral with partial fifth ray resection bilateral, acute lumbar radiculopathy, and acute kidney injury. She follows with another provider in the wound care center for debridement of her ulcerative sites. Prior to her presentation to the ED on 01/05/2022 she was extending increased swelling to her lower extremities bilaterally that she was wrapping at home but states no improvement and increased pain. While in the ED she developed progressing erythema and pain, which was not present during initial presentation. She was admitted to [facility] with cellulitis of the right lower extremity. She received IV antibiotics and infectious disease was consulted, she was placed on cefepime for staph aureus bacteremia. During her stay the cellulitis progressed and podiatry was consulted on 01/06/2022. An MRI was ordered demonstrating localized abscess about the fifth metatarsal of the right foot. A bedside debridement of the ulcerative site was performed and a small amount of purulence was expressed from the lateral foot. Upon further expression no further purulence could be expressed and WBC decreased. However, the next day her ulcerative site demonstrated breakdown with probing to bone, which was not present before and more purulent drainage could be expressed from the ulcerative site. The decision was made to take her to the OR on 01/08/2022 for incision and drainage with debridement of the ulcerative site and bone with bone biopsy of the fifth metatarsal. I discussed with her that this limb salvage case and given her prior history of amputation, Charcot foot deformity, and progressing infection that she is at high risk for loss of limb. I discussed benefits, risks, and complications of the procedure including but not limited to the following: Pain, swelling, scarring, need for further surgery, delayed or nonhealing, infection, blood clot, allergic reaction, loss of limb, function, or life. The patient understands the risk and complications and wishes to proceed with limb salvage. The informed surgical limb was signed and consent was signed and obtained. I answered all her questions. Procedure: Under mild sedation the patient was brought into the operating room placed on the table in supine position. Following IV sedation a pneumatic ankle tourniquet was placed about the patient's right calf. A local anesthetic block was performed about the right ankle consisting of 15 cc of 1:1 mixture of 1% lidocaine plain and 0.5% Marcaine plain. The foot was scrubbed, prepped, and dr aped in usual aseptic manner. Right foot was then elevated and the pneumatic ankle tourniquet was inflated to 250 mmHg. At this time attention was directed to the lateral aspect of the right foot wh ere fluoroscopy was utilized to determine incision placement for access to the fifth metatarsal stump. A linear incision was made with a #15 blade overlying the dorsal lateral aspect of the fifth metatarsal and was deepened down to bone with sharp dissection. Upon reaching bone alvarado purulence was expressed from the surgical site. Deep wound cultures were obtained and sent to microbiology for aerobic, anaerobic, fungal, and MRSA PCR. All pockets about the fifth metatarsal extending dorsally and medially over the fourth metatarsal were explored and purulence was drained. Deep tissue cultures were obtained of the necrotic, nonviable tissue to be sent to microbiology and pathology. All necrotic, nonviable tissue was debrided to healthy bleeding tissue. Next, attention was directed to the plantar aspect of the right foot sub-fifth metatarsal ulcerative site. The base of the ulceration was 100% granular and measured 1.5 cm x 2 cm x 2 cm and probes to the fifth metatarsal stump. The ulcer and vinicius-ulcerative site was debrided utilizing a versa jet removing all nonviable tissue, biofilm, and slough down to the level of the subcutaneous tissues where healthy bleeding tissue was noted. No further purulence could be expressed from the dorsal foot, proximally along the peroneal tendons, or distally from the digits to the surgical site. At this time the reddened discoloration of the right foot was resolved to normal skin color. The remaining tissue was noted to be healthy bleeding tissue. The incision site was then flushed with copious amounts of normal sterile saline. The fifth metatarsal was noted to be of good color and hardness. A sagittal saw was utilized to resect the fifth metatarsal distally for bone culture. Fragment was split into two sections and sent to microbiology and pathology for analysis. Site was flushed with copious amounts of normal sterile saline. At this time gloves were changed, and nonsterile equipment was discarded. The sagittal saw was utilized to obtain a clearance fragment from the fifth metatarsal. The fragment was obtained from a healthy-appearing section of the fifth metatarsal noted to be of hard quality. The fragment was was split into two sections and sent to microbiology and pathology for analysis. Next a bone rongeur and fluoroscopy was utilized to remove any exostosis at the site. At this time the pneumatic calf tourniquet was deflated and a prompt hyperemic response was noted to the right foot and digits of the right foot, tourniquet time was 29 minutes. Surgical site was then flushed with normal sterile saline and packed with Iodoform packing gauze. The plantar ulcerative tract was packed with iodoform gauze. The most distal aspect of the incision was closed utilizing 3-0 Prolene. The proximal surgical site was left open to change packing and allow the site to drain. The incision site was then dressed with 4 x 4 gauze, Kerlix, and a 4 inch and 6 inch [place] wrap. The patient tolerated the procedure well was transported to PACU with vital signs stable vascular intact to the right foot. Patient will be re-admitted the floor following anesthesia protocol where she will continue to receive IV ant ibiotics. I will continue to follow while in-house. Postoperative orders were placed. Tirado catheter was ordered in place prior to the start of the case to ensure compliance in nonweightbearing status. She will remain nonweightbearing to bilateral lower extremities with wheelchair assistance. I will plan for delayed primary closure of the surgical site in 3-5 days pending no further signs of infection. Grafts/Implants Used: None Complications None Admit VTE Documentation VTE Present on Admission: Yes VTE Mechan Device Prophylaxis: None VTE Pharm Prophylaxis ordered?: No Reason prophylaxis not ordered:: Procedure Not Indicated
[2022-01-08 17:25] LABS: Bedside Glucose 161 mg/dL (74-106)
[2022-01-08 18:41] LABS: Bedside Glucose 175 mg/dL (74-106)
--- NOTE | 2022-01-08 19:00 | RAD_ITS ---
STUDY: X-RAY - RIGHT FOOT CLINICAL: Female, 56 years old. Post-op Right foot TECHNIQUE: 3 view(s) of the foot. COMPARISON: Intraoperative images of the right foot of this date. FINDINGS: As visualized on the intraoperative views, the mid to distal fifth metatarsal and fifth toe phalanges are absent, with overlying soft tissue swelling and bubbles of subcutaneous emphysema. The remaining base of the fifth metatarsal is fused with the base of the fourth metatarsal and cuboid. There are partially healed fractures through the base of the second and third metatarsals with residual lucent fracture lines and surrounding sclerosis. There is cortical thickening of the base of the fourth metatarsal which may represent an old/well-healed fracture. 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 AP and oblique views show deformity of the medial cuneiform and tarsal navicular with mild sclerosis about the articulation between these 2 tarsals. Alignment of the first metatarsal base with the medial cuneiform is anatomic. The first through fourth toe phalanges are intact. No fracture of the talus or calcaneus is noted. Ankle joint space, talonavicular joint space and calcaneocuboid joint space are preserved. No dislocation is noted. Lateral view shows extensive soft tissue swelling about the metatarsals. Electronically Signed: Azeem Urena MD at 23:31 EDT , RAD/Foot min 3 Views
[2022-01-08] MEDS: cycloBENZAPRine HCl 5 MG TABLET PO (22:17)
[2022-01-08] MEDS: Atorvastatin Calcium 80 MG Tablet PO (22:17)
[2022-01-08] MEDS: MELATONIN 10 MG TABLET PO (22:18)
[2022-01-08] MEDS: Paroxetine 20 MG Tablet PO (22:19)
[2022-01-08 23:51] LABS: Bedside Glucose 165 mg/dL (74-106)
[2022-01-09] VITALS (14 sets, daily range): BP systolic 101–119; BP diastolic 57–97; PULSE 59–69; RESP 16–20; TEMP 35.8–36.9; O2SAT 93–100
[2022-01-09] MEDS: Benzonatate 100 MG Capsule PO (05:45)
--- NOTE | 2022-01-09 05:47 | NURSING ---
Pt has a moderate amount of serosanguineous drainage on dressing old drainage marked with a marker. Right leg elevated on a blanket and pillows. will continue to monitor.
[2022-01-09 06:30] LABS: Absolute Lymphocyte Count 0.68 X10^3/uL (0.83-4.51); Absolute Neutrophil Count 5.8 X10^3/uL (2.0-7.7); Basophil# 0.04 X10^3/uL; Basophil% 0.5 % (0-1); Eosinophil# 0.29 X10^3/uL; Eosinophils% 3.8 % (0-5); Hematocrit 22.6 % (37-47); Hemoglobin 7.2 g/dL (12.0-15.0); Lymphocyte # 0.68 X10^3/ul (0.83-4.51); Lymphocyte % 8.9 % (19-41); Mean Corp Hgb Conc 31.9 g/dL (32-36); Mean Corpuscular Hgb 27.8 pg (27.0-32.0); Mean Corpuscular Volume 87.3 fL (81-99); Mean Platelet Vol. 12.7 fl (6.2-12.0); Monocyte# 0.66 X10^3/uL; Monocyte% 8.7 % (0-10); NRBC Flagged by Analyzer 0 % (0-5); Neutrophil # 5.84 X10^3/uL (2.7-7.7); Neutrophil % 76.8 % (47-70); Platelet Count 241 K/mm3 (150-450); RBC Distribution Width CV 15.3 % (11.6-14.6); RBC Distribution Width SD 49.1 fl (35.1-43.9); Red Blood Count 2.59 M/mm3 (4.2-5.4); White Blood Count 7.6 K/mm3 (4.4-11.0)
[2022-01-09] MEDS: oxyCODONE 5 MG Tablet PO ×2 (06:40→20:59)
[2022-01-09 06:57] LABS: Albumin, Serum 1.2 g/dL (3.2-5.0); BUN 90 mg/dL (7-18); BUN/Creat Ratio 23.4 RATIO (10-20); Calcium,Total 7.9 mg/dL (8.5-10.1); Chloride 102 mmol/L (98-107); Creatinine, Serum 3.85 mg/dL (0.55-1.02); EST Glomerular Filtration Rate 13 mL/min (>60); Est Glom Filt Rate - Afr Amer 16 mL/min (>60); Estimated Creatinine Clearance 15.27 ml/min; Glucose 161 mg/dL (74-106); Phosphorus 4.7 mg/dL (2.5-4.9); Potassium 4.6 mmol/L (3.5-5.1); Sodium Level 130 mmol/L (136-145)
[2022-01-09] MEDS: Acetaminophen 325 MG Tablet 650 MG PO (08:22)
[2022-01-09 08:31] LABS: Bedside Glucose 170 mg/dL (74-106)
[2022-01-09] MEDS: DAKIN'S SOL HALF STRENGTH (=0.25%) 1 APPLIC TOPICAL (09:25)
[2022-01-09] MEDS: guaiFENesin/D-Methorphan TAB.SR.12H 1 TABLET PO ×2 (09:48→20:58)
[2022-01-09] MEDS: Pramipexole Di-HCl 0.5 MG Tablet 1.5 MG PO ×2 (09:48→20:58)
[2022-01-09] MEDS: hydrOXYzine PAM 25 MG Capsule PO (09:48)
[2022-01-09] MEDS: buPROPion (XL) 150 MG TABLET.XL PO (09:48)
[2022-01-09] MEDS: Isosorbide Mononitrate 30 MG Tablet PO (09:48)
[2022-01-09] MEDS: Gabapentin 300 MG Capsule PO ×2 (09:48→20:58)
[2022-01-09] MEDS: 0.9% Saline Lock 10 ML Syringe IV (09:54)
[2022-01-09] MEDS: Glucerna Shake 120 ML LIQUID PO ×2 (09:57→16:44)
[2022-01-09] MEDS: Insulin Lispro 100 UNIT/ML INSULN.PEN SC ×3 (09:59→16:40)
[2022-01-09] MEDS: Insulin Lispro 100 UNIT/ML INSULN.PEN 15 UNIT SC ×2 (10:00→17:39)
--- NOTE | 2022-01-09 10:18 | PN.HOSP_ITS ---
Subjective Subjective Follow-up on bacteremia/bilateral leg cellulitis/chronic ulcers/back pain: Patient was seen and examined. No acute complaints. No acute events overnight Objective Data Objective Data Vital Signs: Vital Signs Temp Pulse Resp BP Pulse Ox 96.6 F L 65 18 101/74 97 01/09/22 09:35 01/09/22 09:35 01/09/22 09:35 01/09/22 09:35 01/09/22 09:35 Oxygen Flow Rate (L/min) 6 Oxygen Delivery Method Room Air Weight: 95.2 kg Body Mass Index (BMI) 33.8 Intake & Output: Intake and Output for Last 24 Hours 01/07/22 01/08/22 01/09/22 23:59 23:59 23:59 Intake Total 1720 / 1720 820 / 820 Output Total 600 / 600 725 / 725 150 / 150 Balance 1120 / 1120 95 / 95 -150 / -150 Lab / Micro Data Result Diagrams: 01/09/22 05:21 01/09/22 05:21 Labs: Laboratory Results - last 24 hr 01/08/22 12:42: POC Glucose 162 H 01/08/22 16:11: POC Glucose 161 H 01/08/22 18:35: POC Glucose 175 H 01/08/22 22:15: POC Glucose 165 H 01/09/22 05:21: Sodium 130 L, Potassium 4.6, Chloride 102, Carbon Dioxide 20.0 L , BUN 90 H, Creatinine 3.85 H, Estim Creat Clear Calc 15.27, Est GFR (MDRD) Af Amer 16 L, Est GFR (MDRD) Non-Af 13 L, BUN/Creatinine Ratio 23.4 H, Glucose 161 H, Calcium 7.9 L, Phosphorus 4.7, Albumin 1.2 L 01/09/22 05:21: WBC 7.6, RBC 2.59 L, Hgb 7.2 L, Hct 22.6 L, MCV 87.3, MCH 27.8, MCHC 31.9 L, RDW Std Deviation 49.1 H, RDW Coeff of Fior 15.3 H, Plt Count 241, MPV 12.7 H, Immature Gran % (Auto) 1.300 H, Neut % (Auto) 76.8 H, Lymph % (Auto) 8.9 L, [place] % (Auto) 8.7, Eos % (Auto) 3.8, Baso % (Auto) 0.5, Absolute Neuts (auto) 5.8, Absolute Lymphs (auto) 0.68 L, Nucleated RBC % 0 01/09/22 08:24: POC Glucose 170 H Micro: Microbiology 01/06/22 12:30 Blood Culture (Wb) - Right Hand Blood Culture - Preliminary No growth in 48 hours. 01/05/22 01:15 Wound - Right Foot Gram Stain - Final 01/05/22 01:15 Wound - Right Foot Wound Culture - Final Staphylococcus aureus Pseudomonas aeroginosa Enterobacter cloacae complex 01/05/22 01:15 Wound - Left Foot Gram Stain - Final 01/05/22 01:15 Wound - Left Foot Wound Culture - Preliminary Staphylococcus aureus Enterobacter cloacae complex Alpha hemolytic organism 01/07/22 03:55 Stool Stool Occult Blood (MIKE) - Final 01/05/22 00:25 Urine Catheter - Catheter Urine Culture - Final Culture exhibits no growth. 01/05/22 01:00 Blood Culture (Wb) - Left Hand Bacteria Detection (PCR) - Final Staphylococcus aureus 01/05/22 01:00 Blood Culture (Wb) - Left Hand Blood Culture - Final Staphylococcus aureus 01/05/22 00:45 Blood Culture (Wb) - Arm Left Blood Culture - Final Staphylococcus aureus 01/05/22 02:23 Nasal Secretion SARS-CoV-2 & FLU Antigen (Rapid) - Final Radiography Diagnostic Testing: Radiology Impression Foot X-Ray 01/08/22 14:40 IMPRESSION: Fluoroscopic assistance images were obtained. Dictation for documentation purposes only. Electronically Signed: Dallas Arndt MD at 17:16 EDT Reading Location ID and State: [facility] / [place] , Service support , Foot X-Ray 01/08/22 19:00 Physical Exam Narrative Physical exam: General: Alert, Oriented x3, Cooperative, No apparent distress, obese HEENT: Atraumatic Oral: Moist Mucosa Neck: Supple Lungs: Diminished to auscultation Cardiovascular: HS I+II, regular, no murmurs Abdomen: Bowel Sounds Present, Soft, Non Tender Extremities: Bilateral leg edema +2, [place] wrap Assessment & Plan Assessment/Plan (1) Cellulitis: QUALIFIERS: Site of cellulitis: extremity Site of cellulitis of extremity: lower extremity Laterality: right Qualified Code(s): L03.115 - Cellulitis of right lower limb PLAN: 1. Acute staph aureus bacteremia, history of MSSA, Enterobacter bacteremia Repeat blood cultures were negative on 01/06/22. Repeat blood cultures pending today Echo shows EF 55%, no valvular abnormalities ID following, continue IV cefepime 2. Acute staph aureus/pseudomonas/entero bacter osteomyelitis/cellulitis of lower extremities, History of recurrent foot infections, follows longitudinally in the wound center Acute DVT ruled out on admission. Wound RN following.Podiatry consulted. Going for bone debridement today 3. Bilateral leg edema, likely multifactorial secondary to fluid overload state/severe hypoalbuminemia of 1.3/FELI BNPep on 01/05/22 was 2661.5. 2D echo shows EF 55%, indeterminate diastolic dysfunction Patient did not tolerate trial of Lasix as her Cr worsened Continue with [place] wrap 4. Anemia, mixed etiology?iron deficiency anemia/anemia of chronic disease with an element of hemodilution S/p 1 pRBC transfusion last night Repeat Hb 7.2. Will trend 5. FELI on CKD stage IV, admitting creatinine was 2.95 Creatinine today is 3.85, nephrology consult Urine sodium is 12, urine creatinine 336 FeNa 0.1%. Continue to hold IV Lasix Maintain optimal blood pressures Repeat blood work in a.m. 6. Hypotension, multifactorial, likely secondary to medication side effect Discontinue Coreg for now Continue with holding parameters 7. Hyponatremia, likely secondary to hypervolemia, sodium is 132, will continue to monitor 8. Type II DM, blood sugar fairly controlled Continue to monitor with insulin sliding scale with blood glucose checks 9. Back pain, chronic, status post recent back injections, discussed with Dr. Matute, patient is on oral oxycodone MRI of the spine on showed disc herniation, severe spinal stenosis. Neurosurgery consulted -recommends conservative management 10. DVT prophylaxis - Heparin SC Charges/Coding Visit Charges Inpatient E&M: 25923 Subs Hosp L2
[2022-01-09] MEDS: Insulin Glargine-YFGN 100 UNIT/ML Pen 30 UNIT SC (10:59)
--- NOTE | 2022-01-09 11:57 | PN_ITS ---
Subjective Subjective 56-year-old female seen for follow-up s/p I&D of right foot abscess with debridement of ulcerative tissue and bone with bone biopsy right foot. She is seen bedside resting comfortably and eating. She denies any constitutional symptoms. She states she feels better today but is weak. She has Tirado catheter in place with evidence of voiding. She has no other complaints. Objective Data Objective Data Vital Signs: Vital Signs Temp Pulse Resp BP Pulse Ox 96.6 F L 65 18 101/74 97 01/09/22 09:35 01/09/22 09:35 01/09/22 09:35 01/09/22 09:35 01/09/22 09:35 Oxygen Flow Rate (L/min) 6 Oxygen Delivery Method Room Air Weight: 95.2 kg Body Mass Index (BMI) 33.8 Intake & Output: Intake and Output for Last 24 Hours 01/07/22 01/08/22 01/09/22 23:59 23:59 23:59 Intake Total 1720 / 1720 820 / 820 50 / 50 Output Total 600 / 600 725 / 725 150 / 150 Balance 1120 / 1120 95 / 95 -100 / -100 Lab / Micro Data Result Diagrams: 01/09/22 13:38 01/09/22 05:21 Labs: Laboratory Results - last 24 hr 01/08/22 12:42: POC Glucose 162 H 01/08/22 16:11: POC Glucose 161 H 01/08/22 18:35: POC Glucose 175 H 01/08/22 22:15: POC Glucose 165 H 01/09/22 05:21: Sodium 130 L, Potassium 4.6, Chloride 102, Carbon Dioxide 20.0 L , BUN 90 H, Creatinine 3.85 H, Estim Creat Clear Calc 15.27, Est GFR (MDRD) Af Amer 16 L, Est GFR (MDRD) Non-Af 13 L, BUN/Creatinine Ratio 23.4 H, Glucose 161 H, Calcium 7.9 L, Phosphorus 4.7, Albumin 1.2 L 01/09/22 05:21: WBC 7.6, RBC 2.59 L, Hgb 7.2 L, Hct 22.6 L, MCV 87.3, MCH 27.8, MCHC 31.9 L, RDW Std Deviation 49.1 H, RDW Coeff of Fior 15.3 H, Plt Count 241, MPV 12.7 H, Immature Gran % (Auto) 1.300 H, Neut % (Auto) 76.8 H, Lymph % (Auto) 8.9 L, [place] % (Auto) 8.7, Eos % (Auto) 3.8, Baso % (Auto) 0.5, Absolute Neuts (auto) 5.8, Absolute Lymphs (auto) 0.68 L, Nucleated RBC % 0 01/09/22 08:24: POC Glucose 170 H Micro: Microbiology 01/07/22 10:23 Blood Culture (Wb) - Left Hand Blood Culture - Preliminary No growth in 48 hours. 01/06/22 12:30 Blood Culture (Wb) - Right Hand Blood Culture - Preliminary No growth in 48 hours. 01/05/22 01:15 Wound - Right Foot Gram Stain - Final 01/05/22 01:15 Wound - Right Foot Wound Culture - Final Staphylococcus aureus Pseudomonas aeroginosa Enterobacter cloacae complex 01/05/22 01:15 Wound - Left Foot Gram Stain - Final 01/05/22 01:15 Wound - Left Foot Wound Culture - Preliminary Staphylococcus aureus Enterobacter cloacae complex Alpha hemolytic organism 01/07/22 03:55 Stool Stool Occult Blood (MIKE) - Final 01/05/22 00:25 Urine Catheter - Catheter Urine Culture - Final Culture exhibits no growth. 01/05/22 01:00 Blood Culture (Wb) - Left Hand Bacteria Detection (PCR) - Final Staphylococcus aureus 01/05/22 01:00 Blood Culture (Wb) - Left Hand Blood Culture - Final Staphylococcus aureus 01/05/22 00:45 Blood Culture (Wb) - Arm Left Blood Culture - Final Staphylococcus aureus 01/05/22 02:23 Nasal Secretion SARS-CoV-2 & FLU Antigen (Rapid) - Final Radiography Diagnostic Testing: Radiology Impression Foot X-Ray 01/08/22 14:40 IMPRESSION: Fluoroscopic assistance images were obtained. Dictation for documentation purposes only. Electronically Signed: Dallas Arndt MD at 17:16 EDT Reading Location ID and State: [facility] / [place] , Service support , Foot X-Ray 01/08/22 19:00 Physical Exam Const alert, oriented x3, no apparent distress and well nourished General Appearance: cooperative and comfortable HEENT normocephalic Eyes General Eye: normal appearance of both eyes Neck General: normal visual inspection Lymph Lymphatic: no lymphadenopathy noted and no lymphedema noted Resp normal respiratory effort Cardio regular rate and regular rhythm Extremity normal capillary refill and no calf tenderness Skin no rashes or lesions noted and no jaundice Wound Narrative: Left foot plantar ulceration subfifth metatarsal secondary to Charcot deformity demonstrates healthy granular base with hyperkeratotic rim. No localized erythema about ulcer site. No erythema dorsal foot. Ulceration demonstrates no purulent drainage or malodor. Surrounding skin is atrophic. Right foot plantar ulceration subfifth metatarsal secondary to Charcot foot deformity demonstrates healthy granular base post debridement with packing gauze intact plantar foot. Lateral incision distal sutures intact with proximal portion open with iodoform packing gauze intact. Dorsal foot demonstrates resolving erythema. Ulcerative site probes to bone. Neuro oriented x3 and moves all extremities Assessment & Plan Assessment/Plan (1) Cellulitis of right foot: (2) Non-pressure chronic 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 layer exposed: (3) Abscess of right foot: (4) Osteomyelitis of metatarsal: (5) Diabetic foot infection: (6) Charcot's joint, right ankle and foot: PLAN: This is a 56 F who presents with bilateral plantar foot ulcerations with right lower extremity cellulitis complicated by 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 She reports swelling to lower extremities 3 days duration with no improvement despite wrapping her legs. At time of admission she also demonstrated cellulitis of the right lower extremity. Vascular: Negative DVT on venous ultrasound. Adequate vascular perfusion to heal. Vascular studies from 09/01/2020 demonstrate triphasic waveforms. Upon admission she has bilateral pitting edema to the legs and feet and beta natriuretic peptide 2661.5 concerning for CHF, medicine following. She has been following with in the wound care center for debridements and has been nonweightbearing bilateral lower extremities utilizing wheelchair for ambulation. She has history of Charcot foot deformity bilateral and demonstrates no gross laxity or crepitus with manipulation. Hemoglobin A1c 01/08/2022 9.1 %. She has history of PsA, Klebs, & enterobacter in foot within last few months. She has history of coagulase-negative staph from wound culture 09/17/2021 and recent wound cultures demonstrate staph and gram-negative elinor. Infectious disease following and placed her on cefepime for gram-negative coverage. MRI bilateral foot from 01/06/2022 was reviewed. Radiologist interpreted left foot osteomyelitis, I feel radiology reads were switched and that she likely has suspected osteo of the right foot, which correlates with physical exam findings. Left lower extremity foot ulceration currently demonstrates no localized signs of infection. Will continue to monitor for changes. Dressings changed daily. Incision and drainage of right foot abscess and debridement of ulcerative site and bone with bone biopsy of the fifth metatarsal was performed on 01/08/2022. Today right lower extremity plantar foot ulceration demonstrates healthy granular tissue post debridement with intact iodoform packing gauze plantarly. Sutures intact distally on lateral foot incision. Proximal aspect is open with iodoform packing gauze intact. Tissues are healthy appearing. Erythema is resolving and no purulence could be expressed from the foot today. Deep cultures of right foot are pending: Aerobic, anaerobic, fungal, MRSA PCR. Tissue cultures are pending. Bone cultures are pending. Will continue to follow for results. Following OR debridement and continued IV antibiotics WBC currently 7.6. If she continues good progression in healing with no further expressible purulence and negative cultures, plan for delayed primary closure in 3 to 5 days. Continued nonweightbearing status to bilateral lower extremities with wheelchair to assist ambulation. Recommending SNF placement and following with me at the wound care center upon discharge. Infectious disease following is appreciated. Medicine following for medical management is appreciated. Podiatry will continue to follow post surgical debridement. Nursing may reinforce dressings for strikethrough. Please call for any questions or concerns. Dr. Kayden Gann Jr. D.P.M. [facility] [phone] Note: [employer] speech recognition university relations vice president software was used to create portio ns of this document. Sound-alike and misspelled words, as well as other university relations vice president errors may be contained in the documentation.
[2022-01-09 13:45] LABS: Hematocrit 21.8 % (37-47); Hemoglobin 6.9 g/dL (12.0-15.0)
[2022-01-09 14:06] LABS: Bedside Glucose 217 mg/dL (74-106)
[2022-01-09 17:11] LABS: Bedside Glucose 169 mg/dL (74-106)
--- NOTE | 2022-01-09 18:14 | PCM.PN.REN ---
Subjective Subjective Following for FELI. The patient denies current chest pain or shortness of breath at rest. There is no nausea or vomiting. Objective Data Objective Data Vital Signs: Vital Signs Temp Pulse Resp BP Pulse Ox 98.4 F 64 18 102/90 H 98 01/09/22 17:43 01/09/22 17:43 01/09/22 17:43 01/09/22 17:43 01/09/22 17:43 Oxygen Flow Rate (L/min) 6 Oxygen Delivery Method Room Air Weight: 95.2 kg Body Mass Index (BMI) 33.8 Intake & Output: Intake and Output for Last 24 Hours 01/07/22 01/08/22 01/09/22 23:59 23:59 23:59 Intake Total 1720 / 1720 820 / 820 210 / 210 Output Total 600 / 600 725 / 725 150 / 150 Balance 1120 / 1120 95 / 95 60 / 60 Lab / Micro Data Result Diagrams: 01/09/22 13:38 01/09/22 05:21 Labs: Laboratory Results - last 24 hr 01/06/22 23:40: Crossmatch See Detail 01/08/22 18:35: POC Glucose 175 H 01/08/22 22:15: POC Glucose 165 H 01/09/22 05:21: Sodium 130 L, Potassium 4.6, Chloride 102, Carbon Dioxide 20.0 L, BUN 90 H, Creatinine 3.85 H, Estim Creat Clear Calc 15.27, Est GFR (MDRD) Af Amer 16 L, Est GFR (MDRD) Non-Af 13 L, BUN/Creatinine Ratio 23.4 H, Glucose 161 H, Calcium 7.9 L, Phosphorus 4.7, Albumin 1.2 L 01/09/22 05:21: WBC 7.6, RBC 2.59 L, Hgb 7.2 L, Hct 22.6 L, MCV 87.3, MCH 27.8, MCHC 31.9 L, RDW Std Deviation 49.1 H, RDW Coeff of Fior 15.3 H, Plt Count 241, MPV 12.7 H, Immature Gran % (Auto) 1.300 H, Neut % (Auto) 76.8 H, Lymph % (Auto) 8.9 L, [place] % (Auto) 8.7, Eos % (Auto) 3.8, Baso % (Auto) 0.5, Absolute Neuts (auto) 5.8, Absolute Lymphs (auto) 0.68 L, Nucleated RBC % 0 01/09/22 08:24: POC Glucose 170 H 01/09/22 13:38: Hgb 6.9 L, Hct 21.8 L 01/09/22 13:56: POC Glucose 217 H 01/09/22 16:38: POC Glucose 169 H Micro: Microbiology 01/07/22 10:23 Blood Culture (Wb) - Left Hand Blood Culture - Preliminary No growth in 48 hours. 01/06/22 12:30 Blood Culture (Wb) - Right Hand Blood Culture - Preliminary No growth in 48 hours. 01/05/22 01:15 Wound - Right Foot Gram Stain - Final 01/05/22 01:15 Wound - Right Foot Wound Culture - Final Staphylococcus aureus Pseudomonas aeroginosa Enterobacter cloacae complex 01/05/22 01:15 Wound - Left Foot Gram Stain - Final 01/05/22 01:15 Wound - Left Foot Wound Culture - Preliminary Staphylococcus aureus Enterobacter cloacae complex Alpha hemolytic organism 01/07/22 03:55 Stool Stool Occult Blood (MIKE) - Final 01/05/22 00:25 Urine Catheter - Catheter Urine Culture - Final Culture exhibits no growth. 01/05/22 01:00 Blood Culture (Wb) - Left Hand Bacteria Detection (PCR) - Final Staphylococcus aureus 01/05/22 01:00 Blood Culture (Wb) - Left Hand Blood Culture - Final Staphylococcus aureus 01/05/22 00:45 Blood Culture (Wb) - Arm Left Blood Culture - Final Staphylococcus aureus 01/05/22 02:23 Nasal Secretion SARS-CoV-2 & FLU Antigen (Rapid) - Final Radiography Diagnostic Testing: Radiology Impression Foot X-Ray 01/08/22 19:00 Physical Exam Narrative Alert awake oriented x 3 no JVD s1s2 no murmurs lungs clear abdomen soft, non-tender ++ edema b/l legs Assessment & Plan Assessment/Plan (1) FELI (acute kidney injury): PLAN: - FELI is possibly from hypotension, infection. Patient is nonoliguric. -SCr 2.9 mg/dL on admission and has increased to 3.85 mg/dL today. -However, the patient not hyperkalemic, overtly volume overloaded, or severely acidotic. -There is no need for kidney replacement therapy at this point. -Hopefully SCr will plateau over the next 24 to 48 hours. -The patient is also getting blood transfusion today which may help with renal perfusion as well. -Recheck renal function again tomorrow. (2) Chronic kidney disease, stage 3b: PLAN: -The patient has CKD stage IIIb with baseline creatinine around 1.8-2.0. -There has been fluctuations of renal function over the last several years. -The patient has significant proteinuria likely related to diabetic nephropathy.
--- NOTE | 2022-01-09 18:40 | NURSING ---
Reviewed charting with Sebasitan Zavala RN
[2022-01-09] MEDS: MELATONIN 10 MG TABLET PO (20:58)
[2022-01-09] MEDS: Paroxetine 20 MG Tablet PO (20:58)
[2022-01-09] MEDS: cycloBENZAPRine HCl 5 MG TABLET PO (20:58)
[2022-01-09] MEDS: Atorvastatin Calcium 80 MG Tablet PO (20:58)
[2022-01-09 21:41] LABS: Bedside Glucose 82 mg/dL (74-106)
[2022-01-10] VITALS (9 sets, daily range): BP systolic 121–138; BP diastolic 67–101; PULSE 64–84; RESP 12–20; TEMP 36.1–36.5; O2SAT 92–99
[2022-01-10] MEDS: oxyCODONE 5 MG Tablet PO ×2 (05:58→20:32)
[2022-01-10 06:47] LABS: Absolute Lymphocyte Count 0.73 X10^3/uL (0.83-4.51); Absolute Neutrophil Count 6.3 X10^3/uL (2.0-7.7); Basophil# 0.04 X10^3/uL; Basophil% 0.5 % (0-1); Eosinophil# 0.37 X10^3/uL; Eosinophils% 4.5 % (0-5); Hematocrit 25.9 % (37-47); Hemoglobin 8.4 g/dL (12.0-15.0); Lymphocyte # 0.73 X10^3/ul (0.83-4.51); Lymphocyte % 8.9 % (19-41); Mean Corp Hgb Conc 32.4 g/dL (32-36); Mean Corpuscular Hgb 28.1 pg (27.0-32.0); Mean Corpuscular Volume 86.6 fL (81-99); Mean Platelet Vol. 12.1 fl (6.2-12.0); Monocyte# 0.67 X10^3/uL; Monocyte% 8.2 % (0-10); NRBC Flagged by Analyzer 0.4 % (0-5); Neutrophil # 6.27 X10^3/uL (2.7-7.7); Neutrophil % 76.6 % (47-70); Platelet Count 284 K/mm3 (150-450); RBC Distribution Width CV 14.9 % (11.6-14.6); RBC Distribution Width SD 47.4 fl (35.1-43.9); Red Blood Count 2.99 M/mm3 (4.2-5.4); White Blood Count 8.2 K/mm3 (4.4-11.0)
[2022-01-10 07:18] LABS: Albumin, Serum 1.3 g/dL (3.2-5.0); BUN 89 mg/dL (7-18); BUN/Creat Ratio 23.2 RATIO (10-20); Calcium,Total 8.1 mg/dL (8.5-10.1); Chloride 104 mmol/L (98-107); Creatinine, Serum 3.84 mg/dL (0.55-1.02); EST Glomerular Filtration Rate 13 mL/min (>60); Est Glom Filt Rate - Afr Amer 16 mL/min (>60); Estimated Creatinine Clearance 15.31 ml/min; Glucose 68 mg/dL (74-106); Phosphorus 4.1 mg/dL (2.5-4.9); Potassium 4.6 mmol/L (3.5-5.1); Sodium Level 132 mmol/L (136-145)
[2022-01-10 07:56] LABS: Bedside Glucose 63 mg/dL (74-106)
[2022-01-10 08:45] LABS: Bedside Glucose 77 mg/dL (74-106)
[2022-01-10 08:45] LABS: Bedside Glucose 67 mg/dL (74-106)
[2022-01-10] MEDS: Gabapentin 300 MG Capsule PO ×2 (09:00→20:33)
[2022-01-10] MEDS: hydrOXYzine PAM 25 MG Capsule PO (09:00)
[2022-01-10] MEDS: Pramipexole Di-HCl 0.5 MG Tablet 1.5 MG PO ×2 (09:00→20:33)
[2022-01-10] MEDS: buPROPion (XL) 150 MG TABLET.XL PO (09:00)
[2022-01-10] MEDS: guaiFENesin/D-Methorphan TAB.SR.12H 1 TABLET PO ×2 (09:00→20:33)
[2022-01-10] MEDS: Isosorbide Mononitrate 30 MG Tablet PO (09:01)
--- NOTE | 2022-01-10 10:38 | PCM.PN.HOSP ---
Subjective Subjective Follow-up on bacteremia/bilateral leg cellulitis/chronic ulcers/back pain: Patient was seen and examined. Blood sugars are running low. Patient complains of severe back pain. Objective Data Objective Data Vital Signs: Vital Signs Temp Pulse Resp BP Pulse Ox 97.7 F L 70 16 131/74 H 99 01/10/22 08:27 01/10/22 08:27 01/10/22 08:27 01/10/22 08:27 01/10/22 08:27 Oxygen Flow Rate (L/min) 6 Oxygen Delivery Method Room Air Weight: 95.2 kg Body Mass Index (BMI) 33.8 Intake & Output: Intake and Output for Last 24 Hours 01/08/22 01/09/22 01/10/22 23:59 23:59 23:59 Intake Total 820 / 820 1330 / 1330 0 / 0 Output Total 725 / 725 350 / 350 450 / 450 Balance 95 / 95 980 / 980 -450 / -450 Lab / Micro Data Result Diagrams: 01/10/22 05:22 01/10/22 05:22 Labs: Laboratory Results - last 24 hr 01/06/22 23:40: Crossmatch See Detail 01/09/22 13:38: Hgb 6.9 L, Hct 21.8 L 01/09/22 13:56: POC Glucose 217 H 01/09/22 16:38: POC Glucose 169 H 01/09/22 20:53: POC Glucose 82 01/10/22 05:22: WBC 8.2, RBC 2.99 L, Hgb 8.4 L, Hct 25.9 L, MCV 86.6, MCH 28.1, MCHC 32.4, RDW Std Deviation 47.4 H, RDW Coeff of Fior 14.9 H, Plt Count 284, MPV 12.1 H, Immature Gran % (Auto) 1.300 H, Neut % (Auto) 76.6 H, Lymph % (Auto) 8.9 L, [place] % (Auto) 8.2, Eos % (Auto) 4.5, Baso % (Auto) 0.5, Absolute Neuts (auto) 6.3, Absolute Lymphs (auto) 0.73 L, Nucleated RBC % 0.4 01/10/22 05:22: Sodium 132 L, Potassium 4.6, Chloride 104, Carbon Dioxide 21.0, BUN 89 H, Creatinine 3.84 H, Estim Creat Clear Calc 15.31, Est GFR (MDRD) Af Amer 16 L, Est GFR (MDRD) Non-Af 13 L, BUN/Creatinine Ratio 23.2 H, Glucose 68 L, Calcium 8.1 L, Phosphorus 4.1, Albumin 1.3 L 01/10/22 07:49: POC Glucose 63 L 01/10/22 08:18: POC Glucose 67 L 01/10/22 08:41: POC Glucose 77 Micro: Microbiology 01/05/22 01:15 Wound - Left Foot Gram Stain - Final 01/05/22 01:15 Wound - Left Foot Wound Culture - Final Staphylococcus aureus Enterobacter cloacae complex Streptococcus sanguinis 01/06/22 12:30 Blood Culture (Wb) - Right Hand Blood Culture - Preliminary Staphylococcus aureus 01/07/22 10:23 Blood Culture (Wb) - Left Hand Blood Culture - Preliminary No growth in 48 hours. 01/05/22 01:15 Wound - Right Foot Gram Stain - Final 01/05/22 01:15 Wound - Right Foot Wound Culture - Final Staphylococcus aureus Pseudomonas aeroginosa Enterobacter cloacae complex 01/07/22 03:55 Stool Stool Occult Blood (MIKE) - Final 01/05/22 00:25 Urine Catheter - Catheter Urine Culture - Final Culture exhibits no growth. 01/05/22 01:00 Blood Culture (Wb) - Left Hand Bacteria Detection (PCR) - Final Staphylococcus aureus 01/05/22 01:00 Blood Culture (Wb) - Left Hand Blood Culture - Final Staphylococcus aureus 01/05/22 00:45 Blood Culture (Wb) - Arm Left Blood Culture - Final Staphylococcus aureus 01/05/22 02:23 Nasal Secretion SARS-CoV-2 & FLU Antigen (Rapid) - Final Physical Exam Narrative Physical exam: General: Alert, Oriented x3, Cooperative, No apparent distress, obese HEENT: Atraumatic Oral: Moist Mucosa Neck: Supple Lungs: Diminished to auscultation Cardiovascular: HS I+II, regular, no murmurs Abdomen: Bowel Sounds Present, Soft, Non Tender Extremities: Bilateral leg edema +2, [place] wrap Assessment & Plan Assessment/Plan (1) Cellulitis: QUALIFIERS: Site of cellulitis: extremity Site of cellulitis of extremity: lower extremity Laterality: right Qualified Code(s): L03.115 - Cellulitis of right lower limb PLAN: 1. Acute staph aureus bacteremia, history of MSSA, Enterobacter bacteremia Repeat blood cultures were negative on 01/06/22. Repeat blood cultures pending today Echo shows EF 55%, no valvular abnormalities ID following, continue IV cefepime 2. Acute staph aureus/pseudomonas/entero bacter osteomyelitis/cellulitis of lower extremities, History of recurrent foot infections, follows longitudinally in the wound center Acute DVT ruled out on admission. Wound RN following.Podiatry consulted. Going for bone debridement today 3. Bilateral leg edema, likely multifactorial secondary to fluid overload state/severe hypoalbuminemia of 1.3/FELI BNPep on 01/05/22 was 2661.5. 2D echo shows EF 55%, indeterminate diastolic dysfunction Patient did not tolerate trial of Lasix as her Cr worsened Continue with [place] wrap 4. Anemia, mixed etiology?iron deficiency anemia/anemia of chronic disease with an element of hemodilution S/p 2 pRBC transfusion, repeat Hb 8.4. Will trend 5. FELI on CKD stage IV, admitting creatinine was 2.95 Creatinine today is 3.84, nephrology following Urine sodium is 12, urine creatinine 336 FeNa 0.1%. Continue to hold IV Lasix Maintain optimal blood pressures Repeat blood work in a.m. 6. Hypotension, multifactorial, likely secondary to medication side effect Discontinue Coreg for now Continue with holding parameters 7. Hyponatremia, likely secondary to hypervolemia, sodium is 132, will continue to monitor 8. Type II DM, with episodes of hypoglycemia, Lantus decreased to 15 units daily, pre-meal insulin held Will continue with ISS 9. Back pain, chronic, status post recent back injections, discussed with Dr. Matute, patient is on oral oxycodone MRI of the spine on showed disc herniation, severe spinal stenosis. Neurosurgery consulted -recommends conservative management 10. DVT prophylaxis - Heparin SC Charges/Coding Visit Charges Inpatient E&M: 06616 Subs Hosp L2
[2022-01-10] MEDS: DAKIN'S SOL HALF STRENGTH (=0.25%) 1 APPLIC TOPICAL (11:20)
[2022-01-10] MEDS: Glucerna Shake 120 ML LIQUID PO ×2 (11:31→16:13)
[2022-01-10 12:11] LABS: Bedside Glucose 139 mg/dL (74-106)
[2022-01-10 16:21] LABS: Bedside Glucose 142 mg/dL (74-106)
--- NOTE | 2022-01-10 19:01 | PN.RENAL_ITS ---
Subjective Subjective Following for FELI. The patient is tearful today. She reports visual hallucination where she is seeing members of her family who are not there. She denies current chest pain or shortness of breath. She denies nausea. Objective Data Objective Data Vital Signs: Vital Signs Temp Pulse Resp BP Pulse Ox 97.4 F L 73 12 138/69 H 93 01/10/22 16:15 01/10/22 16:15 01/10/22 16:15 01/10/22 16:15 01/10/22 16:15 Oxygen Flow Rate (L/min) 6 Oxygen Delivery Method Room Air Weight: 95.2 kg Body Mass Index (BMI) 33.8 Intake & Output: Intake and Output for Last 24 Hours 01/08/22 01/09/22 01/10/22 23:59 23:59 23:59 Intake Total 820 / 820 1330 / 1330 830 / 830 Output Total 725 / 725 350 / 350 1500 / 1500 Balance 95 / 95 980 / 980 -670 / -670 Lab / Micro Data Result Diagrams: 01/10/22 05:22 01/10/22 05:22 Labs: Laboratory Results - last 24 hr 01/06/22 23:40: Crossmatch See Detail 01/09/22 20:53: POC Glucose 82 01/10/22 05:22: WBC 8.2, RBC 2.99 L, Hgb 8.4 L, Hct 25.9 L, MCV 86.6, MCH 28.1, MCHC 32.4, RDW Std Deviation 47.4 H, RDW Coeff of Fior 14.9 H, Plt Count 284, MPV 12.1 H, Immature Gran % (Auto) 1.300 H, Neut % (Auto) 76.6 H, Lymph % (Auto) 8.9 L, [place] % (Auto) 8.2, Eos % (Auto) 4.5, Baso % (Auto) 0.5, Absolute Neuts (auto) 6.3, Absolute Lymphs (auto) 0.73 L, Nucleated RBC % 0.4 01/10/22 05:22: Sodium 132 L, Potassium 4.6, Chloride 104, Carbon Dioxide 21.0, BUN 89 H, Creatinine 3.84 H, Estim Creat Clear Calc 15.31, Est GFR (MDRD) Af Amer 16 L, Est GFR (MDRD) Non-Af 13 L, BUN/Creatinine Ratio 23.2 H, Glucose 68 L , Calcium 8.1 L, Phosphorus 4.1, Albumin 1.3 L 01/10/22 07:49: POC Glucose 63 L 01/10/22 08:18: POC Glucose 67 L 01/10/22 08:41: POC Glucose 77 01/10/22 11:25: POC Glucose 139 H 01/10/22 16:10: POC Glucose 142 H Micro: Microbiology 01/08/22 Unknown Wound Abcess - Right Foot Gram Stain - Final 01/08/22 Unknown Wound Abcess - Right Foot Wound Culture - Preliminary Staphylococcus aureus Gram positive organism 01/08/22 Unknown Wound - Right Foot Gram Stain - Final 01/08/22 Unknown Wound - Right Foot Wound Culture - Preliminary Staphylococcus aureus Gram positive organism 01/08/22 Unknown Wound - Right Foot Gram Stain - Final 01/08/22 Unknown Wound - Right Foot Wound Culture - Preliminary Staphylococcus aureus Gram positive organism 01/08/22 Unknown Wound - Right Foot Gram Stain - Final 01/08/22 Unknown Wound - Right Foot Wound Culture - Preliminary Staphylococcus aureus Gram positive organism 01/08/22 12:14 Blood Culture (Wb) - Anticubital Left Blood Culture - Preliminary No growth in 48 hours. 01/05/22 01:15 Wound - Left Foot Gram Stain - Final 01/05/22 01:15 Wound - Left Foot Wound Culture - Final Staphylococcus aureus Enterobacter cloacae complex Streptococcus sanguinis 01/06/22 12:30 Blood Culture (Wb) - Right Hand Blood Culture - Preliminary Staphylococcus aureus 01/07/22 10:23 Blood Culture (Wb) - Left Hand Blood Culture - Preliminary No growth in 48 hours. 01/05/22 01:15 Wound - Right Foot Gram Stain - Final 01/05/22 01:15 Wound - Right Foot Wound Culture - Final Staphylococcus aureus Pseudomonas aeroginosa Enterobacter cloacae complex 01/07/22 03:55 Stool Stool Occult Blood (MIKE) - Final 01/05/22 00:25 Urine Catheter - Catheter Urine Culture - Final Culture exhibits no growth. 01/05/22 01:00 Blood Culture (Wb) - Left Hand Bacteria Detection (PCR) - Final Staphylococcus aureus 01/05/22 01:00 Blood Culture (Wb) - Left Hand Blood Culture - Final Staphylococcus aureus 01/05/22 00:45 Blood Culture (Wb) - Arm Left Blood Culture - Final Staphylococcus aureus 01/05/22 02:23 Nasal Secretion SARS-CoV-2 & FLU Antigen (Rapid) - Final Physical Exam Narrative Alert awake oriented x 3 no JVD s1s2 no murmurs lungs clear anteriorly abdomen soft, non-tender ++ edema b/l legs Assessment & Plan Assessment/Plan (1) FELI (acute kidney injury): PLAN: - FELI is due to ATN from hypotension, infection. Patient is nonoliguric. -Serum creatinine was 2.9 mg/dL on admission and has increased to 3.85 mg/dL on 01/09/2022. -However, the patient not hyperkalemic, overtly volume overloaded, or severely acidotic. Renal function has stabilized today with creatinine of 3.84 mg/dL today. -There is no need for kidney replacement therapy at this point. -Hopefully SCr will continue to plateau over the next 24 to 48 hours. -Recheck renal function again tomorrow. (2) Chronic kidney disease, stage 3b: PLAN: -The patient has CKD stage IIIb with baseline creatinine around 1.8- 2.0. -There has been fluctuations of renal function over the last several years. -The patient has significant proteinuria likely related to diabetic nephropathy.
[2022-01-10] MEDS: Atorvastatin Calcium 80 MG Tablet PO (20:32)
[2022-01-10] MEDS: Paroxetine 20 MG Tablet PO (20:33)
[2022-01-10] MEDS: MELATONIN 10 MG TABLET PO (20:33)
[2022-01-10] MEDS: cycloBENZAPRine HCl 5 MG TABLET PO (20:33)
[2022-01-10] MEDS: Insulin Lispro 100 UNIT/ML INSULN.PEN SC (20:37)
[2022-01-10 21:06] LABS: Bedside Glucose 251 mg/dL (74-106)
[2022-01-11] VITALS (10 sets, daily range): BP systolic 142–159; BP diastolic 75–89; PULSE 66–84; RESP 16–22; TEMP 35.6–37.4; O2SAT 94–98
[2022-01-11 04:47] LABS: Absolute Lymphocyte Count 0.83 X10^3/uL (0.83-4.51); Absolute Neutrophil Count 6.7 X10^3/uL (2.0-7.7); Basophil# 0.04 X10^3/uL; Basophil% 0.5 % (0-1); Eosinophil# 0.32 X10^3/uL; Eosinophils% 3.6 % (0-5); Hemoglobin 8.6 g/dL (12.0-15.0); Lymphocyte # 0.83 X10^3/ul (0.83-4.51); Lymphocyte % 9.4 % (19-41); Mean Corp Hgb Conc 33.1 g/dL (32-36); Mean Corpuscular Hgb 28.7 pg (27.0-32.0); Mean Corpuscular Volume 86.7 fL (81-99); Mean Platelet Vol. 11.7 fl (6.2-12.0); Monocyte# 0.74 X10^3/uL; Monocyte% 8.4 % (0-10); NRBC Flagged by Analyzer 0 % (0-5); Neutrophil # 6.69 X10^3/uL (2.7-7.7); Neutrophil % 75.6 % (47-70); Platelet Count 315 K/mm3 (150-450); RBC Distribution Width CV 15.3 % (11.6-14.6); RBC Distribution Width SD 48.3 fl (35.1-43.9); White Blood Count 8.8 K/mm3 (4.4-11.0)
[2022-01-11 05:09] LABS: Albumin, Serum 1.3 g/dL (3.2-5.0); BUN 89 mg/dL (7-18); BUN/Creat Ratio 24.9 RATIO (10-20); Calcium,Total 8.1 mg/dL (8.5-10.1); Chloride 107 mmol/L (98-107); Creatinine, Serum 3.57 mg/dL (0.55-1.02); EST Glomerular Filtration Rate 14 mL/min (>60); Est Glom Filt Rate - Afr Amer 17 mL/min (>60); Estimated Creatinine Clearance 16.47 ml/min; Glucose 148 mg/dL (74-106); Potassium 4.9 mmol/L (3.5-5.1); Sodium Level 135 mmol/L (136-145)
[2022-01-11 06:41] LABS: Bedside Glucose 135 mg/dL (74-106)
[2022-01-11] MEDS: Gabapentin 300 MG Capsule PO ×2 (09:24→20:22)
[2022-01-11] MEDS: buPROPion (XL) 150 MG TABLET.XL PO (09:24)
[2022-01-11] MEDS: Insulin Glargine-YFGN 100 UNIT/ML Pen 10 UNIT SC (09:24)
[2022-01-11] MEDS: hydrOXYzine PAM 25 MG Capsule PO (09:24)
[2022-01-11] MEDS: guaiFENesin/D-Methorphan TAB.SR.12H 1 TABLET PO ×2 (09:24→20:22)
[2022-01-11] MEDS: Isosorbide Mononitrate 30 MG Tablet PO (09:24)
[2022-01-11] MEDS: Pramipexole Di-HCl 0.5 MG Tablet 1.5 MG PO ×2 (09:24→20:22)
[2022-01-11] MEDS: Glucerna Shake 120 ML LIQUID PO ×2 (09:28→12:32)
--- NOTE | 2022-01-11 11:40 | PN.HOSP_ITS ---
Subjective Subjective Follow-up on bacteremia/bilateral leg cellulitis/chronic ulcers/back pain: Patient was seen and examined. No acute events. Still complains of severe pain in her back. Blood sugars improved. Objective Data Objective Data Vital Signs: Vital Signs Temp Pulse Resp BP Pulse Ox 97.5 F L 75 16 153/82 H 97 01/11/22 09:00 01/11/22 09:00 01/11/22 09:00 01/11/22 09:00 01/11/22 09:00 Oxygen Flow Rate (L/min) 6 Oxygen Delivery Method Room Air Weight: 95.2 kg Body Mass Index (BMI) 33.8 Intake & Output: Intake and Output for Last 24 Hours 01/09/22 01/10/22 01/11/22 23:59 23:59 23:59 Intake Total 1330 / 1330 830 / 830 50 / 50 Output Total 350 / 350 1800 / 1800 1750 / 1750 Balance 980 / 980 -970 / -970 -1700 / -1700 Lab / Micro Data Result Diagrams: 01/11/22 04:19 01/11/22 04:19 Labs: Laboratory Results - last 24 hr 01/10/22 11:25: POC Glucose 139 H 01/10/22 16:10: POC Glucose 142 H 01/10/22 20:27: POC Glucose 251 H 01/11/22 04:19: WBC 8.8, RBC 3.00 L, Hgb 8.6 L, Hct 26.0 L, MCV 86.7, MCH 28.7, MCHC 33.1, RDW Std Deviation 48.3 H, RDW Coeff of Fior 15.3 H, Plt Count 315, MPV 11.7, Immature Gran % (Auto) 2.500 H, Neut % (Auto) 75.6 H, Lymph % (Auto) 9.4 L , [place] % (Auto) 8.4, Eos % (Auto) 3.6, Baso % (Auto) 0.5, Absolute Neuts (auto) 6.7, Absolute Lymphs (auto) 0.83, Nucleated RBC % 0 01/11/22 04:19: Sodium 135 L, Potassium 4.9, Chloride 107, Carbon Dioxide 20.0 L , BUN 89 H, Creatinine 3.57 H, Estim Creat Clear Calc 16.47, Est GFR (MDRD) Af Amer 17 L, Est GFR (MDRD) Non-Af 14 L, BUN/Creatinine Ratio 24.9 H, Glucose 148 H, Calcium 8.1 L, Phosphorus 4.0, Albumin 1.3 L 01/11/22 06:19: POC Glucose 135 H Micro: Microbiology 01/08/22 Unknown Wound Abcess - Right Foot Gram Stain - Final 01/08/22 Unknown Wound Abcess - Right Foot Wound Culture - Preliminary Staphylococcus aureus Gram positive organism 01/08/22 Unknown Wound Abcess - Right Foot Anaerobic Culture - Preliminary 01/08/22 Unknown Wound - Right Foot Gram Stain - Final 01/08/22 Unknown Wound - Right Foot Wound Culture - Preliminary Staphylococcus aureus Gram positive organism 01/08/22 Unknown Wound - Right Foot Anaerobic Culture - Preliminary 01/08/22 Unknown Wound - Right Foot Gram Stain - Final 01/08/22 Unknown Wound - Right Foot Wound Culture - Preliminary Staphylococcus aureus Gram positive organism 01/08/22 Unknown Wound - Right Foot Anaerobic Culture - Preliminary 01/08/22 Unknown Wound - Right Foot Gram Stain - Final 01/08/22 Unknown Wound - Right Foot Wound Culture - Preliminary Staphylococcus aureus Gram positive organism 01/08/22 Unknown Wound - Right Foot Anaerobic Culture - Preliminary 01/08/22 12:14 Blood Culture (Wb) - Anticubital Left Blood Culture - Preliminary No growth in 48 hours. 01/05/22 01:15 Wound - Left Foot Gram Stain - Final 01/05/22 01:15 Wound - Left Foot Wound Culture - Final Staphylococcus aureus Enterobacter cloacae complex Streptococcus sanguinis 01/06/22 12:30 Blood Culture (Wb) - Right Hand Blood Culture - Preliminary Staphylococcus aureus 01/07/22 10:23 Blood Culture (Wb) - Left Hand Blood Culture - Preliminary No growth in 48 hours. 01/05/22 01:15 Wound - Right Foot Gram Stain - Final 01/05/22 01:15 Wound - Right Foot Wound Culture - Final Staphylococcus aureus Pseudomonas aeroginosa Enterobacter cloacae complex 01/07/22 03:55 Stool Stool Occult Blood (MIKE) - Final 01/05/22 00:25 Urine Catheter - Catheter Urine Culture - Final Culture exhibits no growth. 01/05/22 01:00 Blood Culture (Wb) - Left Hand Bacteria Detection (PCR) - Final Staphylococcus aureus 01/05/22 01:00 Blood Culture (Wb) - Left Hand Blood Culture - Final Staphylococcus aureus 01/05/22 00:45 Blood Culture (Wb) - Arm Left Blood Culture - Final Staphylococcus aureus 01/05/22 02:23 Nasal Secretion SARS-CoV-2 & FLU Antigen (Rapid) - Final Physical Exam Narrative Physical exam: General: Alert, Oriented x3, Cooperative, No apparent distress, obese HEENT: Atraumatic Oral: Moist Mucosa Neck: Supple Lungs: Diminished to auscultation Cardiovascular: HS I+II, regular, no murmurs Abdomen: Bowel Sounds Present, Soft, Non Tender Extremities: Bilateral leg edema +2, [place] wrap Assessment & Plan Assessment/Plan (1) Cellulitis: QUALIFIERS: Laterality: right Site of cellulitis: extremity Site of cellulitis of extremity: lower extremity Qualified Code(s): L03.115 - Cellulitis of right lower limb PLAN: Summary: 56-year-old female with history of chronic back pain, multiple readmissions who comes in complaining of bilateral leg pain and found to have bacteremia. 1. Acute staph aureus bacteremia, history of MSSA, Enterobacter bacteremia Repeat blood cultures were negative on 01/06/22. Repeat blood cultures pending today Echo shows EF 55%, no valvular abnormalities ID following, continue IV cefepime 2. Acute staph aureus/pseudomonas/entero bacter osteomyelitis/cellulitis of lower extremities, History of recurrent foot infections, follows longitudinally in the wound center Acute DVT ruled out on admission. Wound RN following.Podiatry consulted. Going for bone debridement today 3. Bilateral leg edema, likely multifactorial secondary to fluid overload state/ severe hypoalbuminemia of 1.3/FELI BNPep on 01/05/22 was 2661.5. 2D echo shows EF 55%, indeterminate diastolic dysfunction Patient did not tolerate trial of Lasix as her Cr worsened Continue with [place] wrap 4. Anemia, mixed etiology?iron deficiency anemia/anemia of chronic disease with an element of hemodilution S/p 2 pRBC transfusion, repeat Hb 8.6. Will trend 5. FELI on CKD stage IV, admitting creatinine was 2.95 Creatinine today is 3.57, nephrology following Urine sodium is 12, urine creatinine 336 FeNa 0.1%. Continue to hold IV Lasix Maintain optimal blood pressures Repeat blood work in a.m. 6. Hypotension, multifactorial, likely secondary to medication side effect Blood pressure appears improved, would resume on Coreg slowly Continue with holding parameters 7. Hyponatremia, likely secondary to hypervolemia, sodium is 135, will continue to monitor 8. Type II DM, with episodes of hypoglycemia, BS better today Continue on Lantus decreased to 15 units daily, pre-meal insulin held Will continue with ISS 9. Back pain, chronic, status post recent back injections, discussed with Dr. Matute, patient is on oral oxycodone MRI of the spine on showed disc herniation, severe spinal stenosis. Neurosurgery consulted -recommends conservative management 10. DVT prophylaxis - Heparin SC 11. Disposition; Awaiting DC to SNF Charges/Coding Visit Charges Inpatient E&M: 61569 Subs Hosp L2
--- NOTE | 2022-01-11 11:41 | PN.RENAL_ITS ---
Subjective Subjective Following for FELI on CKD Patient alert and oriented, complains of hip pain. Denies any nausea. Complains of feeling thirsty. Objective Data Objective Data Vital Signs: Vital Signs Temp Pulse Resp BP Pulse Ox 97.5 F L 75 16 153/82 H 97 01/11/22 09:00 01/11/22 09:00 01/11/22 09:00 01/11/22 09:00 01/11/22 09:00 Oxygen Flow Rate (L/min) 6 Oxygen Delivery Method Room Air Weight: 95.2 kg Body Mass Index (BMI) 33.8 Intake & Output: Intake and Output for Last 24 Hours 01/09/22 01/10/22 01/11/22 23:59 23:59 23:59 Intake Total 1330 / 1330 830 / 830 50 / 50 Output Total 350 / 350 1800 / 1800 1750 / 1750 Balance 980 / 980 -970 / -970 -1700 / -1700 Lab / Micro Data Result Diagrams: 01/11/22 04:19 01/11/22 04:19 Labs: Laboratory Results - last 24 hr 01/10/22 11:25: POC Glucose 139 H 01/10/22 16:10: POC Glucose 142 H 01/10/22 20:27: POC Glucose 251 H 01/11/22 04:19: WBC 8.8, RBC 3.00 L, Hgb 8.6 L, Hct 26.0 L, MCV 86.7, MCH 28.7, MCHC 33.1, RDW Std Deviation 48.3 H, RDW Coeff of Fior 15.3 H, Plt Count 315, MPV 11.7, Immature Gran % (Auto) 2.500 H, Neut % (Auto) 75.6 H, Lymph % (Auto) 9.4 L , [place] % (Auto) 8.4, Eos % (Auto) 3.6, Baso % (Auto) 0.5, Absolute Neuts (auto) 6.7, Absolute Lymphs (auto) 0.83, Nucleated RBC % 0 01/11/22 04:19: Sodium 135 L, Potassium 4.9, Chloride 107, Carbon Dioxide 20.0 L , BUN 89 H, Creatinine 3.57 H, Estim Creat Clear Calc 16.47, Est GFR (MDRD) Af Amer 17 L, Est GFR (MDRD) Non-Af 14 L, BUN/Creatinine Ratio 24.9 H, Glucose 148 H, Calcium 8.1 L, Phosphorus 4.0, Albumin 1.3 L 01/11/22 06:19: POC Glucose 135 H Micro: Microbiology 01/08/22 Unknown Wound Abcess - Right Foot Gram Stain - Final 01/08/22 Unknown Wound Abcess - Right Foot Wound Culture - Preliminary Staphylococcus aureus Gram positive organism 01/08/22 Unknown Wound Abcess - Right Foot Anaerobic Culture - Preliminary 01/08/22 Unknown Wound - Right Foot Gram Stain - Final 01/08/22 Unknown Wound - Right Foot Wound Culture - Preliminary Staphylococcus aureus Gram positive organism 01/08/22 Unknown Wound - Right Foot Anaerobic Culture - Preliminary 01/08/22 Unknown Wound - Right Foot Gram Stain - Final 01/08/22 Unknown Wound - Right Foot Wound Culture - Preliminary Staphylococcus aureus Gram positive organism 01/08/22 Unknown Wound - Right Foot Anaerobic Culture - Preliminary 01/08/22 Unknown Wound - Right Foot Gram Stain - Final 01/08/22 Unknown Wound - Right Foot Wound Culture - Preliminary Staphylococcus aureus Gram positive organism 01/08/22 Unknown Wound - Right Foot Anaerobic Culture - Preliminary 01/08/22 12:14 Blood Culture (Wb) - Anticubital Left Blood Culture - Preliminary No growth in 48 hours. 01/05/22 01:15 Wound - Left Foot Gram Stain - Final 01/05/22 01:15 Wound - Left Foot Wound Culture - Final Staphylococcus aureus Enterobacter cloacae complex Streptococcus sanguinis 01/06/22 12:30 Blood Culture (Wb) - Right Hand Blood Culture - Preliminary Staphylococcus aureus 01/07/22 10:23 Blood Culture (Wb) - Left Hand Blood Culture - Preliminary No growth in 48 hours. 01/05/22 01:15 Wound - Right Foot Gram Stain - Final 01/05/22 01:15 Wound - Right Foot Wound Culture - Final Staphylococcus aureus Pseudomonas aeroginosa Enterobacter cloacae complex 01/07/22 03:55 Stool Stool Occult Blood (MIKE) - Final 01/05/22 00:25 Urine Catheter - Catheter Urine Culture - Final Culture exhibits no growth. 01/05/22 01:00 Blood Culture (Wb) - Left Hand Bacteria Detection (PCR) - Final Staphylococcus aureus 01/05/22 01:00 Blood Culture (Wb) - Left Hand Blood Culture - Final Staphylococcus aureus 01/05/22 00:45 Blood Culture (Wb) - Arm Left Blood Culture - Final Staphylococcus aureus 01/05/22 02:23 Nasal Secretion SARS-CoV-2 & FLU Antigen (Rapid) - Final Physical Exam Narrative Alert awake oriented x 3 no JVD s1s2 no murmurs lungs clear anteriorly abdomen soft, non-tender ++ edema b/l legs preston with clear urine in bag Assessment & Plan Assessment/Plan (1) FELI (acute kidney injury): PLAN: - FELI is due to ATN from hypotension, infection. Patient is nonoliguric. -Serum creatinine was 2.9 mg/dL on admission and peaked to 3.85 mg/dL on 01/09/2022. Overall renal function is stable with some improvement, today serum creatinine 3.57 mg/dL -The patient not hyperkalemic, overtly volume overloaded, or severely acidotic. -There is no need for kidney replacement therapy at this point. -Patient in nonoliguric, has good urine output, patient has Preston -Recheck renal function again tomorrow. (2) Chronic kidney disease, stage 3b: PLAN: -The patient has CKD stage IIIb with baseline creatinine around 1.8- 2.0mg/dL. -There has been fluctuations of renal function over the last several years. -The patient has significant proteinuria likely related to diabetic nephropathy. - bacteremia/bilateral leg cellulitis/chronic ulcers s/p I&D. On cefepime
[2022-01-11] MEDS: Insulin Lispro 100 UNIT/ML INSULN.PEN SC (12:29)
[2022-01-11 12:36] LABS: Bedside Glucose 155 mg/dL (74-106)
[2022-01-11] MEDS: DAKIN'S SOL HALF STRENGTH (=0.25%) 1 APPLIC TOPICAL (13:14)
--- NOTE | 2022-01-11 13:56 | WOUNDNOTE ---
wound photo: left plantar foot
--- NOTE | 2022-01-11 13:57 | WOUNDNOTE ---
wound photo: right lateral foot
--- NOTE | 2022-01-11 13:58 | WOUNDNOTE ---
wound photo: right plantar foot
--- NOTE | 2022-01-11 14:55 | CASEMGMT ---
Social Work SW spoke with Dr. Steven. Peer to Peer with insurance completed today and denial was overturned. Per insurance pt approved for SNF. SW placed phone call to Cassie at [facility] and informed precert was approved. [facility] has not yet received update from [facility] and therefore pt cannot come until they receive this. Per physician, pt not ready for d/c today but likely tomorrow. [facility] notified of potential d/c tomorrow. Plan: [facility], pending final acceptance from insurance ERIN Masters
[2022-01-11] MEDS: oxyCODONE 5 MG Tablet PO ×2 (15:10→20:26)
--- NOTE | 2022-01-11 17:20 | NURSING ---
site continues to ooze, pressure held with gauze , applied gauze and tegaderm. Please change dressing in 24 hours .
[2022-01-11 17:56] LABS: Bedside Glucose 116 mg/dL (74-106)
--- NOTE | 2022-01-11 18:08 | PN_ITS ---
Subjective Subjective 56-year-old female seen for follow-up s/p I&D of right foot abscess with debridement of ulcerative tissue and bone with bone biopsy right foot. She is seen bedside resting comfortably. She denies any constitutional symptoms. She states she feels okay, but complains of severe back pain. Objective Data Objective Data Vital Signs: Vital Signs Temp Pulse Resp BP Pulse Ox 99.3 F H 74 16 142/75 H 98 01/11/22 15:00 01/11/22 15:00 01/11/22 15:00 01/11/22 15:00 01/11/22 15:00 Oxygen Flow Rate (L/min) 6 Oxygen Delivery Method Room Air Weight: 95.2 kg Body Mass Index (BMI) 33.8 Intake & Output: Intake and Output for Last 24 Hours 01/09/22 01/10/22 01/11/22 23:59 23:59 23:59 Intake Total 1330 / 1330 830 / 830 500 / 500 Output Total 350 / 350 1800 / 1800 2200 / 2200 Balance 980 / 980 -970 / -970 -1700 / -1700 Lab / Micro Data Result Diagrams: 01/11/22 04:19 01/11/22 04:19 Labs: Laboratory Results - last 24 hr 01/10/22 20:27: POC Glucose 251 H 01/11/22 04:19: WBC 8.8, RBC 3.00 L, Hgb 8.6 L, Hct 26.0 L, MCV 86.7, MCH 28.7, MCHC 33.1, RDW Std Deviation 48.3 H, RDW Coeff of Fior 15.3 H, Plt Count 315, MPV 11.7, Immature Gran % (Auto) 2.500 H, Neut % (Auto) 75.6 H, Lymph % (Auto) 9.4 L , [place] % (Auto) 8.4, Eos % (Auto) 3.6, Baso % (Auto) 0.5, Absolute Neuts (auto) 6.7, Absolute Lymphs (auto) 0.83, Nucleated RBC % 0 01/11/22 04:19: Sodium 135 L, Potassium 4.9, Chloride 107, Carbon Dioxide 20.0 L , BUN 89 H, Creatinine 3.57 H, Estim Creat Clear Calc 16.47, Est GFR (MDRD) Af Amer 17 L, Est GFR (MDRD) Non-Af 14 L, BUN/Creatinine Ratio 24.9 H, Glucose 148 H, Calcium 8.1 L, Phosphorus 4.0, Albumin 1.3 L 01/11/22 06:19: POC Glucose 135 H 01/11/22 12:27: POC Glucose 155 H 01/11/22 17:50: POC Glucose 116 H Micro: Microbiology 01/08/22 Unknown Wound Abcess - Right Foot Gram Stain - Final 01/08/22 Unknown Wound Abcess - Right Foot Wound Culture - Preliminary Staphylococcus aureus Gram positive organism 01/08/22 Unknown Wound Abcess - Right Foot Anaerobic Culture - Preliminary 01/08/22 Unknown Wound - Right Foot Gram Stain - Final 01/08/22 Unknown Wound - Right Foot Wound Culture - Preliminary Staphylococcus aureus Gram positive organism 01/08/22 Unknown Wound - Right Foot Anaerobic Culture - Preliminary 01/08/22 Unknown Wound - Right Foot Gram Stain - Final 01/08/22 Unknown Wound - Right Foot Wound Culture - Preliminary Staphylococcus aureus Gram positive organism 01/08/22 Unknown Wound - Right Foot Anaerobic Culture - Preliminary 01/08/22 Unknown Wound - Right Foot Gram Stain - Final 01/08/22 Unknown Wound - Right Foot Wound Culture - Preliminary Staphylococcus aureus Gram positive organism 01/08/22 Unknown Wound - Right Foot Anaerobic Culture - Preliminary 01/08/22 12:14 Blood Culture (Wb) - Anticubital Left Blood Culture - Preliminary No growth in 48 hours. 01/05/22 01:15 Wound - Left Foot Gram Stain - Final 01/05/22 01:15 Wound - Left Foot Wound Culture - Final Staphylococcus aureus Enterobacter cloacae complex Streptococcus sanguinis 01/06/22 12:30 Blood Culture (Wb) - Right Hand Blood Culture - Preliminary Staphylococcus aureus 01/07/22 10:23 Blood Culture (Wb) - Left Hand Blood Culture - Preliminary No growth in 48 hours. 01/05/22 01:15 Wound - Right Foot Gram Stain - Final 01/05/22 01:15 Wound - Right Foot Wound Culture - Final Staphylococcus aureus Pseudomonas aeroginosa Enterobacter cloacae complex 01/07/22 03:55 Stool Stool Occult Blood (MIKE) - Final 01/05/22 00:25 Urine Catheter - Catheter Urine Culture - Final Culture exhibits no growth. 01/05/22 01:00 Blood Culture (Wb) - Left Hand Bacteria Detection (PCR) - Final Staphylococcus aureus 01/05/22 01:00 Blood Culture (Wb) - Left Hand Blood Culture - Final Staphylococcus aureus 01/05/22 00:45 Blood Culture (Wb) - Arm Left Blood Culture - Final Staphylococcus aureus 01/05/22 02:23 Nasal Secretion SARS-CoV-2 & FLU Antigen (Rapid) - Final Physical Exam Const alert, oriented x3, no apparent distress and well nourished General Appearance: cooperative and comfortable HEENT normocephalic Eyes General Eye: normal appearance of both eyes Neck General: normal visual inspection Lymph Lymphatic: no lymphadenopathy noted and no lymphedema noted Resp normal respiratory effort Cardio regular rate and regular rhythm Extremity normal capillary refill and no calf tenderness Skin no rashes or lesions noted and no jaundice Wound Narrative: Left foot plantar ulceration subfifth metatarsal secondary to Charcot deformity demonstrates healthy granular base with hyperkeratotic rim. No localized erythema about ulcer site. No erythema dorsal foot. Ulceration demonstrates no purulent drainage or malodor. Surrounding skin is atrophic. Right foot plantar ulceration subfifth metatarsal secondary to Charcot foot deformity demonstrates healthy granular base post debridement with packing gauze intact plantar foot. Lateral incision distal sutures intact with proximal portion open with iodoform packing gauze intact. Dorsal foot demonstrates resolving erythema. Ulcerative site probes to bone. Neuro oriented x3 and moves all extremities Assessment & Plan Assessment/Plan (1) Cellulitis of right foot: (2) Non-pressure chronic 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 layer exposed: (3) Abscess of right foot: (4) Osteomyelitis of metatarsal: (5) Diabetic foot infection: (6) Charcot's joint, right ankle and foot: PLAN: This is a 56 F who presents with bilateral plantar foot ulcerations with right lower extremity cellulitis complicated by 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 She reports swelling to lower extremities 3 days duration with no improvement despite wrapping her legs. At time of admission she also demonstrated cellulitis of the right lower extremity. Vascular: Negative DVT on venous ultrasound. Adequate vascular perfusion to heal. Vascular studies from 09/01/2020 demonstrate triphasic waveforms. Upon admission she has bilateral pitting edema to the legs and feet and beta natriuretic peptide 2661.5 concerning for CHF, medicine following. She has been following with in the wound care center for debridements and has been nonweightbearing bilateral lower extremities utilizing wheelchair for ambulation. She has history of Charcot foot deformity bilateral and demonstrates no gross laxity or crepitus with manipulation. Hemoglobin A1c on 01/08/2022 was 9.1 %. She has history of PsA, Klebs, & enterobacter in foot within last few months. She has history of coagulase-negative staph from wound culture 09/17/2021 and recent wound cultures demonstrate staph and gram-negative elinor. Infectious disease following and an antibiotic change to Maxipime was made. Patient is getting a PICC line today and will continue IV Maxipime. MRI bilateral foot from 01/06/2022 was reviewed. Radiologist interpreted left foot osteomyelitis, I feel radiology reads were switched and that she likely has suspected osteo of the right foot, which correlates with physical exam findings. Left lower extremity foot ulceration currently demonstrates no localized signs of infection. Will continue to monitor for changes. Dressings changed daily. Incision and drainage of right foot abscess and debridement of ulcerative site and bone with bone biopsy of the fifth metatarsal was performed on 01/08/2022. Today right lower extremity plantar foot ulceration demonstrates healthy granular tissue post debridement with intact Dakin's gauze packing to proximal lateral incision and plantar foot. Sutures intact distally on lateral foot incision. Deep cultures of right foot are demonstrate staph aureus, Enterobacter, and strep sangiunis. Bone cultures are pending. Will continue to follow for results. Tissue about the wound appears healthy with no purulence expressible from the incision site lateral foot. At this time I discussed with patient and obtained verbal consent for a delayed primary closure of the right lateral foot. Local anesthetic block consisting of 10 cc of 1% lidocaine plain was performed about the lateral foot. Site was scrubbed and prepped in an aseptic manner. Lateral incision closed with 3-0 Prolene. Site was dressed with 4 x 4 gauze, Kerlix, ABD, and [place] wraps. Patient tolerated the procedure well. Continued nonweightbearing status to bilateral lower extremities with wheelchair to assist ambulation. Recommending SNF placement and following with me at the wound care center upon discharge. Infectious disease following is appreciated. Medicine following for medical management is appreciated. Podiatry will continue to follow post surgical debridement. Nursing may reinforce dressings for strikethrough. Please call for any questions or concerns. Dr. Kayden Gann Jr. D.P.M. [facility] [phone] Note: [employer] speech recognition building tech software was used to create portions of this document. Sound-alike and misspelled words, as well as other building tech errors may be contained in the documentation.
[2022-01-11] MEDS: Lidocaine 1% (20 ml mdv) 20 ML Vial INFILT (18:22)
[2022-01-11] MEDS: Carvedilol 3.125 MG TABLET PO (20:22)
[2022-01-11] MEDS: Atorvastatin Calcium 80 MG Tablet PO (20:22)
[2022-01-11] MEDS: cycloBENZAPRine HCl 5 MG TABLET PO (20:22)
[2022-01-11] MEDS: MELATONIN 10 MG TABLET PO (20:22)
[2022-01-11] MEDS: Paroxetine 20 MG Tablet PO (20:23)
[2022-01-11 22:00] LABS: Bedside Glucose 106 mg/dL (74-106)
[2022-01-12] VITALS (8 sets, daily range): BP systolic 140–163; BP diastolic 69–90; PULSE 65–86; RESP 16–18; TEMP 36.3–36.8; O2SAT 95–99
[2022-01-12] MEDS: oxyCODONE 5 MG Tablet PO (06:03)
[2022-01-12 06:11] LABS: Bedside Glucose 66 mg/dL (74-106)
[2022-01-12 06:28] LABS: ALB/GLOB Ratio 0.2 RATIO (0.9-2.4); AST(SGOT) 135 U/L (15-37); Alanine Aminotransfer ALT/SGPT 32 U/L (13-56); Albumin, Serum 1.4 g/dL (3.2-5.0); Alkaline Phosphatase 985 U/L (45-117); Anion Gap 3 (5-15); BUN 72 mg/dL (7-18); BUN/Creat Ratio 22.4 RATIO (10-20); Calcium,Total 8.5 mg/dL (8.5-10.1); Chloride 109 mmol/L (98-107); Creatinine, Serum 3.21 mg/dL (0.55-1.02); EST Glomerular Filtration Rate 16 mL/min (>60); Est Glom Filt Rate - Afr Amer 19 mL/min (>60); Estimated Creatinine Clearance 18.32 ml/min; Globulin 5.6 g/dL (2.2-4.2); Glucose 64 mg/dL (74-106); Phosphorus 4.5 mg/dL (2.5-4.9); Potassium 4.8 mmol/L (3.5-5.1); Sodium Level 136 mmol/L (136-145)
[2022-01-12 07:26] LABS: Bedside Glucose 93 mg/dL (74-106)
[2022-01-12] MEDS: buPROPion (XL) 150 MG TABLET.XL PO (08:13)
[2022-01-12] MEDS: Isosorbide Mononitrate 30 MG Tablet PO (08:14)
[2022-01-12] MEDS: Gabapentin 300 MG Capsule PO ×2 (08:14→21:25)
[2022-01-12] MEDS: hydrOXYzine PAM 25 MG Capsule PO (08:14)
[2022-01-12] MEDS: guaiFENesin/D-Methorphan TAB.SR.12H 1 TABLET PO ×2 (08:14→21:25)
[2022-01-12] MEDS: Carvedilol 3.125 MG TABLET PO ×2 (08:14→21:23)
[2022-01-12] MEDS: Pramipexole Di-HCl 0.5 MG Tablet 1.5 MG PO ×2 (08:14→21:25)
--- NOTE | 2022-01-12 10:25 | PN.RENAL_ITS ---
Subjective Subjective Following for EFLI on CKD Sitting in chair, denies any complaints. No overnight events. Objective Data Objective Data Vital Signs: Vital Signs Temp Pulse Resp BP Pulse Ox 98.1 F 76 16 150/69 H 95 01/12/22 08:08 01/12/22 08:08 01/12/22 08:08 01/12/22 08:08 01/12/22 08:08 Oxygen Flow Rate (L/min) 6 Oxygen Delivery Method Room Air Weight: 95.2 kg Body Mass Index (BMI) 33.8 Intake & Output: Intake and Output for Last 24 Hours 01/10/22 01/11/22 01/12/22 23:59 23:59 23:59 Intake Total 830 / 830 500 / 740 240 / 240 Output Total 1800 / 1800 2200 / 2200 550 / 550 Balance -970 / -970 -1700 / -1460 -310 / -310 Lab / Micro Data Result Diagrams: 01/11/22 04:19 01/12/22 06:00 Labs: Laboratory Results - last 24 hr 01/11/22 12:27: POC Glucose 155 H 01/11/22 17:50: POC Glucose 116 H 01/11/22 20:37: POC Glucose 106 01/12/22 05:58: POC Glucose 66 L 01/12/22 06:00: Sodium 136, Potassium 4.8, Chloride 109 H, Carbon Dioxide 24.0, Anion Gap 3 L, BUN 72 H, Creatinine 3.21 H, Estim Creat Clear Calc 18.32, Est GFR (MDRD) Af Amer 19 L, Est GFR (MDRD) Non-Af 16 L, BUN/Creatinine Ratio 22.4 H , Glucose 64 L, Calcium 8.5, Phosphorus 4.5, Total Bilirubin 0.60, AST 135 H, ALT 32, Alkaline Phosphatase 985 H, Total Protein 7.0, Albumin 1.4 L, Globulin 5.6 H, Albumin/Globulin Ratio 0.2 L 01/12/22 07:22: POC Glucose 93 Micro: Microbiology 01/08/22 Unknown Wound Abcess - Right Foot Gram Stain - Final 01/08/22 Unknown Wound Abcess - Right Foot Wound Culture - Final Staphylococcus aureus Streptococcus sanguinis 01/08/22 Unknown Wound - Right Foot Gram Stain - Final 01/08/22 Unknown Wound - Right Foot Wound Culture - Final Staphylococcus aureus Streptococcus sanguinis 01/08/22 Unknown Wound - Right Foot Anaerobic Culture - Preliminary 01/06/22 12:30 Blood Culture (Wb) - Right Hand Blood Culture - Final Staphylococcus aureus 01/08/22 Unknown Wound - Right Foot Gram Stain - Final 01/08/22 Unknown Wound - Right Foot Wound Culture - Preliminary Staphylococcus aureus Gram positive organism 01/08/22 Unknown Wound - Right Foot Anaerobic Culture - Preliminary 01/08/22 Unknown Wound - Right Foot Gram Stain - Final 01/08/22 Unknown Wound - Right Foot Wound Culture - Preliminary Staphylococcus aureus Gram positive organism 01/08/22 Unknown Wound - Right Foot Anaerobic Culture - Preliminary 01/08/22 12:14 Blood Culture (Wb) - Anticubital Left Blood Culture - Preliminary No growth in 48 hours. 01/05/22 01:15 Wound - Left Foot Gram Stain - Final 01/05/22 01:15 Wound - Left Foot Wound Culture - Final Staphylococcus aureus Enterobacter cloacae complex Streptococcus sanguinis 01/07/22 10:23 Blood Culture (Wb) - Left Hand Blood Culture - Preliminary No growth in 48 hours. 01/05/22 01:15 Wound - Right Foot Gram Stain - Final 01/05/22 01:15 Wound - Right Foot Wound Culture - Final Staphylococcus aureus Pseudomonas aeroginosa Enterobacter cloacae complex 01/07/22 03:55 Stool Stool Occult Blood (MIKE) - Final 01/05/22 00:25 Urine Catheter - Catheter Urine Culture - Final Culture exhibits no growth. 01/05/22 01:00 Blood Culture (Wb) - Left Hand Bacteria Detection (PCR) - Final Staphylococcus aureus 01/05/22 01:00 Blood Culture (Wb) - Left Hand Blood Culture - Final Staphylococcus aureus 01/05/22 00:45 Blood Culture (Wb) - Arm Left Blood Culture - Final Staphylococcus aureus 01/05/22 02:23 Nasal Secretion SARS-CoV-2 & FLU Antigen (Rapid) - Final Physical Exam Narrative Alert awake oriented x 3 no JVD s1s2 no murmurs lungs clear anteriorly abdomen soft, non-tender MYLA wrap b/l LE, +edema above wraps pure wick in place, clear urine in cannister Assessment & Plan Assessment/Plan (1) FELI (acute kidney injury): PLAN: - FELI is due to ATN from hypotension, infection. Patient is nonoliguric. -Serum creatinine was 2.9 mg/dL on admission and peaked to 3.85 mg/dL on 01/09/2022. Overall renal function is stable with some improvement, today serum creatinine 3.21 mg/dL -The patient not hyperkalemic, overtly volume overloaded, or severely acidotic. -There is no need for kidney replacement therapy at this point. -Patient in nonoliguric, has good urine output - bps were low but are improving, now on Coreg and Imdur. (2) Chronic kidney disease, stage 3b: PLAN: -The patient has CKD stage IIIb with baseline creatinine around 1.8- 2.0mg/dL. -There has been fluctuations of renal function over the last several years. -The patient has significant proteinuria likely related to diabetic nephropathy. - bacteremia/bilateral leg cellulitis/chronic ulcers s/p I&D. On cefepime - possible discharge to ECF today, patient will need nephrology follow-up. D/w discharge team. Patient today stated she has seen Dr. Mancilla for nephrology care. Encouraged patient to follow up with Dr. Mancilla.
[2022-01-12] MEDS: Insulin Glargine-YFGN 100 UNIT/ML Pen 10 UNIT SC (11:13)
[2022-01-12 11:20] LABS: Bedside Glucose 117 mg/dL (74-106)
--- NOTE | 2022-01-12 11:26 | PCM.TXEXTCAR ---
Diet 01/11/22 13:48 Diet: Consistent Carb - Calorie Controlled Food consistency:: Regular Liquid Consistency:: Regular/Thin Dietary Modifications:: Sodium Restricted Cardiac / Heart Healthy Type of Dietary Supplement:: Ted Is pt able to select menu?: Yes Diet Comments: w/ breakfast and dinner How many daily calories?: 1800 calorie Wound(s) Bottom R foot: Wound Type: Neuropathic/Diabetic Foot Ulcer Bottom L foot: Wound Type: Neuropathic/Diabetic Foot Ulcer left plantar foot: Wound Type: Neuropathic/Diabetic Foot Ulcer Dressing Change: Dakins moistened gauze right plantar foot: Wound Type: Neuropathic/Diabetic Foot Ulcer Dressing Change: Dakins moistened gauze RIGHT LOWER LEG: Wound Type: Surgical Incision right lateral foot: Wound Type: Surgical Incision Dressing Change: Dakins moistened gauze Therapies Weight Bearing: Non weight bearing Extremity Affected:: Right Lower Physical Therapy: Eval and Treat Occupational Therapy: Eval and Treat Problem/Diagnosis (1) FELI (acute kidney injury): Status: Acute (2) Chronic kidney disease, stage 3b: Status: Acute (3) Cellulitis of right foot: Status: Acute Allergies/Procedures Done in Hospital Allergies Penicillins Allergy (Verified 01/04/22 21:55) swelling in throat vancomycin Allergy (Verified 01/04/22 21:55) Itching metronidazole Adverse Reaction (Verified 01/04/22 21:55) Nausea oxycodone [From OxyContin] Adverse Reaction (Verified 01/04/22 21:55) Shortness of breath Type of Care/Length of Stay Estimated LOS: Convalescent Care Less Than 30 days Type of Care Needed: Skilled Rehab Potential: Good Prognosis: Good Additional Orders/Day of Discharge Day of Discharge: 01/12/22 Dietary and Speech Recommendations Dietitian Recommendations/Changes: Will change diet to 1800 calorie/carbohydrate-controlled, Cardiac/sodium restricted diet. Will d/c Glucerna Shake TID w/ medpass. Will continue Ted BID for wound healing. Monitor need to restrict protein due to CKD stage 4. Discharge Plan Admission Admit Date/Time: 01/06/22 12:09 Primary Reason for Your Visit: Cellulitis Attending Provider: Rodney Yates Primary Care Provider: Raúl Eric Consulting Providers: Kayden Gann ; Kike Tello ; Angel Joel ; Homero Cleary Instructions Additional Instructions / Restrictions: * Follow up with your primary care provider or accounts receivable associate in regards to adjusting your home diabetic regimen and blood sugars. They were erratic in the hospital (high and low), however your hemoglobin A1C was uncontrolled at 9.1. * Obtain weekly CBC's & BMP's to monitor your blood work. Discharge Orders/Prescriptions Prescriptions: New carvedilol 3.125 mg Tablet 3.125 mg PO BID Qty: 60 RF: 0 cefepime 1 gram Recon Soln 1 g IV Q24 Qty: 38 RF: 0 Continued atorvastatin 80 mg tablet 80 mg PO QHS Qty: 90 RF: 3 pramipexole 1 MG tablet 1.5 mg PO BID RF: 0 isosorbide mononitrate 30 mg tablet extended release 24 hr 30 mg PO DAILY RF: 0 paroxetine HCl 20 mg tablet 20 mg PO QHS RF: 0 oxycodone 5 mg tablet 5 mg PO TID RF: 0 bupropion HCl 150 mg PO.IVFORM DAILY RF: 0 clopidogrel 75 MG tablet 75 mg PO DAILY RF: 0 hydroxyzine HCl 25 mg Tablet 25 mg PO DAILY RF: 0 insulin lispro [Humalog KwikPen Insulin] 100 unit/mL insulin pen 15 unit subcut TIDCM RF: 0 Lantus Solostar U-100 Insulin 100 unit/mL (3 mL) insulin pen 30 unit SUBCUT DAILY RF: 0 gabapentin 300 mg capsule 300 mg BID RF: 0 cyclobenzaprine 5 mg Tablet 5 mg PO QHS Qty: 0 RF: 0 melatonin 10 mg Tablet 10 mg PO QHS RF: 0 Discontinued carvedilol [Coreg] 6.25 mg tablet 6.25 mg PO BID Qty: 60 RF: 0 Other Ambulatory Orders: Basic Metabolic Profile (BMP) (Routine) Timeframe: 1 Week Facility: [facility] - Location: Laboratory Ordered By: Zach GRANADO CBC W/Diff, Automated (Routine) Timeframe: 1 Week Facility: [facility] - Location: Laboratory Ordered By: Zach GRANADO Referrals / Follow Up: Raúl Eric MD [Primary Care Provider] - Within 2 Weeks Disposition Disposition (needs filled in before D/C Order can be placed): Home, Self Care
[2022-01-12] MEDS: DAKIN'S SOL HALF STRENGTH (=0.25%) 1 APPLIC TOPICAL (12:58)
--- NOTE | 2022-01-12 14:28 | DS.PCM_ITS ---
Documented by User: Zach GRANADO 01/12/22 14:44 Providers Date of Admission: 01/06/22 Date of Discharge: 01/12/22 Primary Care Physician: Dr. Raúl Eric MD Consultations 01/05/22 04:41 Consult: Onc/Wound/substation operator conversion Routine Comment: Reason for Consult:: Bilateral wound on plantar side of pain 01/06/22 07:15 Consult: Podiatry Routine Consulting Provider: Kayden Gann Reason for Consult: bilateral foot wounds EMERGENT Consult: No MD Notified: Yes Date Notified: 01/06/22 Time Notified: 09:41 Method of Notification: Verbal 01/06/22 10:45 Consult: Infectious Disease Routine Consulting Provider: Kike Tello Reason for Consult: Bacteremia EMERGENT Consult: No Notified: Yes Date Notified: 01/06/22 Time Notified: 11:38 Method of Notification: Text 01/06/22 11:13 Consult: Nephrology Routine Consulting Provider: Angel Joel Reason for Consult: FELI EMERGENT Consult: No Notified: Yes Date Notified: 01/06/22 Time Notified: 11:44 Method of Notification: Answering Service 01/07/22 07:54 Consult: Orthopedics Routine Consulting Provider: Homero Cleary Reason for Consult: Disc herniation EMERGENT Consult: No Notified: Yes Date Notified: 01/07/22 Time Notified: 07:55 Method of Notification: Verbal Reason For Visit: ACUTE GASTROENTERITIS Diagnosis Discharge Diagnosis (1) FELI (acute kidney injury): Status: Acute Code(s): N17.9 - Acute kidney failure, unspecified (2) Chronic kidney disease, stage 3b: Status: Acute Code(s): N18.32 - Chronic kidney disease, stage 3b (3) Cellulitis of right foot: Status: Acute Code(s): L03.115 - Cellulitis of right lower limb Medications at Discharge Home Medications atorvastatin 80 mg tablet 80 mg PO QHS #90 tablet 11/30/19 pramipexole 1.5 mg PO BID 09/12/20 isosorbide mononitrate 30 mg PO DAILY 03/03/21 oxycodone 5 mg PO TID 07/07/21 paroxetine HCl 20 mg PO QHS 07/07/21 bupropion HCl 150 mg PO.IVFORM DAILY 09/02/21 clopidogrel 75 mg PO DAILY 10/25/21 Lantus Solostar U-100 Insulin 30 unit SUBCUT DAILY 11/16/21 hydroxyzine HCl 25 mg PO DAILY 11/16/21 insulin lispro [Humalog KwikPen Insulin] 15 unit SUBCUT TIDCM 11/16/21 cyclobenzaprine 5 mg PO QHS #0 tab 12/23/21 gabapentin 300 mg BID 12/23/21 melatonin 10 mg PO QHS 01/05/22 carvedilol 3.125 mg PO BID #60 tab 01/12/22 cefepime 1 g IV Q24 #38 ea 01/12/22 Hospital Course Summary of Care Provided Minutes Spent on Discharge: 20 Hospital Course: Patient is a 56-year-old female who was admitted to [facility] on 01/05/2022 for evaluation and management of bilateral cellulitis. Patient was subsequently found to have staph aureus bacteremia as well as osteomyelitis caused by Enterobacter. Patient was evaluated by infectious disease and was placed on cefazolin regimen. It was advised by infectious disease that patient be placed on cefazolin for 6 to 8 weeks, to end on February 19, 2022. While admitted patient blood sugars were erratic and difficult to control. Hemoglobin A1c was 9.1. Patient's home insulin regimen was continued given a blood sugar of 60 on day of admission despite lower basal insulin given in the hospital. Patient was advised to follow-up with primary care provider for further diabetic care. Patient seen by Zach Mistry PA-C, under the supervision of Dr. Yates. Physical Exam Narrative Patient is a 56-year-old female comfortably resting in bed, alert and orient x3. Patient denies any new symptoms overnight does not appear in acute distress. Const alert, oriented x3 and no apparent distress HEENT normocephalic, head/scalp atraumatic and hearing grossly normal bilaterally Eyes PERRL and conjunctivae normal Neck no lymphadenopathy, supple and no JVD Resp normal respiratory effort, no retractions and no use of accessory muscles Cardio regular rate, regular rhythm and no JVD GI normal to inspection, nondistended, normoactive bowel sounds Extremity Extremity Narrative: Bilateral leg edema 2+, [place] wraps applied. General Extremity: edema Skin no rashes or lesions noted Neuro CN's II-XII intact bilaterally Psych affect normal Weight / BMI Weight Weight: 209 lb 14.081 oz Body Mass Index (BMI) 33.8 ABG / Lab / Microbiology Data Result Diagrams: 01/11/22 04:19 01/12/22 06:00 Laboratory: Laboratory Results - last 24 hr 01/11/22 17:50: POC Glucose 116 H 01/11/22 20:37: POC Glucose 106 01/12/22 05:58: POC Glucose 66 L 01/12/22 06:00: Sodium 136, Potassium 4.8, Chloride 109 H, Carbon Dioxide 24.0, Anion Gap 3 L, BUN 72 H, Creatinine 3.21 H, Estim Creat Clear Calc 18.32, Est GFR (MDRD) Af Amer 19 L, Est GFR (MDRD) Non-Af 16 L, BUN/Creatinine Ratio 22.4 H , Glucose 64 L, Calcium 8.5, Phosphorus 4.5, Total Bilirubin 0.60, AST 135 H, ALT 32, Alkaline Phosphatase 985 H, Total Protein 7.0, Albumin 1.4 L, Globulin 5.6 H, Albumin/Globulin Ratio 0.2 L 01/12/22 07:22: POC Glucose 93 01/12/22 11:12: POC Glucose 117 H Microbiology: Microbiology 01/07/22 10:23 Blood Culture (Wb) - Left Hand Blood Culture - Final No growth in 5 days. 01/08/22 Unknown Wound Abcess - Right Foot Gram Stain - Final 01/08/22 Unknown Wound Abcess - Right Foot Wound Culture - Final Staphylococcus aureus Streptococcus sanguinis 01/08/22 Unknown Wound - Right Foot Gram Stain - Final 01/08/22 Unknown Wound - Right Foot Wound Culture - Final Staphylococcus aureus Streptococcus sanguinis 01/08/22 Unknown Wound - Right Foot Anaerobic Culture - Preliminary 01/06/22 12:30 Blood Culture (Wb) - Right Hand Blood Culture - Final Staphylococcus aureus 01/08/22 Unknown Wound - Right Foot Gram Stain - Final 01/08/22 Unknown Wound - Right Foot Wound Culture - Preliminary Staphylococcus aureus Gram positive organism 01/08/22 Unknown Wound - Right Foot Anaerobic Culture - Preliminary 01/08/22 Unknown Wound - Right Foot Gram Stain - Final 01/08/22 Unknown Wound - Right Foot Wound Culture - Preliminary Staphylococcus aureus Gram positive organism 01/08/22 Unknown Wound - Right Foot Anaerobic Culture - Preliminary 01/08/22 12:14 Blood Culture (Wb) - Anticubital Left Blood Culture - Preliminary No growth in 48 hours. 01/05/22 01:15 Wound - Left Foot Gram Stain - Final 01/05/22 01:15 Wound - Left Foot Wound Culture - Final Staphylococcus aureus Enterobacter cloacae complex Streptococcus sanguinis 01/05/22 01:15 Wound - Right Foot Gram Stain - Final 01/05/22 01:15 Wound - Right Foot Wound Culture - Final Staphylococcus aureus Pseudomonas aeroginosa Enterobacter cloacae complex 01/07/22 03:55 Stool Stool Occult Blood (MIKE) - Final 01/05/22 00:25 Urine Catheter - Catheter Urine Culture - Final Culture exhibits no growth. 01/05/22 01:00 Blood Culture (Wb) - Left Hand Bacteria Detection (PCR) - Final Staphylococcus aureus 01/05/22 01:00 Blood Culture (Wb) - Left Hand Blood Culture - Final Staphylococcus aureus 01/05/22 00:45 Blood Culture (Wb) - Arm Left Blood Culture - Final Staphylococcus aureus 01/05/22 02:23 Nasal Secretion SARS-CoV-2 & FLU Antigen (Rapid) - Final Meaningful Use Info Meaningful Use Diagnoses (Choose all that apply): None applicable Discharge Plan Admission Admit Date/Time: 01/06/22 12:09 Primary Reason for Your Visit: Cellulitis Attending Provider: Rodney Yates Primary Care Provider: Raúl Eric Consulting Providers: Kayden Gann ; iKke Tello ; Angel Joel ; Homero Cleary Instructions Additional Instructions / Restrictions: * Follow up with your primary care provider or government affairs specialist in regards to adjusting your home diabetic regimen and blood sugars. They were erratic in the hospital (high and low), however your hemoglobin A1C was uncontrolled at 9.1. * Obtain weekly CBC's & BMP's to monitor your blood work. Discharge Orders/Prescriptions Prescriptions: New carvedilol 3.125 mg Tablet 3.125 mg PO BID Qty: 60 RF: 0 cefepime 1 gram Recon Soln 1 g IV Q24 Qty: 38 RF: 0 Continued atorvastatin 80 mg tablet 80 mg PO QHS Qty: 90 RF: 3 pramipexole 1 MG tablet 1.5 mg PO BID RF: 0 isosorbide mononitrate 30 mg tablet extended release 24 hr 30 mg PO DAILY RF: 0 paroxetine HCl 20 mg tablet 20 mg PO QHS RF: 0 oxycodone 5 mg tablet 5 mg PO TID RF: 0 bupropion HCl 150 mg PO.IVFORM DAILY RF: 0 clopidogrel 75 MG tablet 75 mg PO DAILY RF: 0 hydroxyzine HCl 25 mg Tablet 25 mg PO DAILY RF: 0 insulin lispro [Humalog KwikPen Insulin] 100 unit/mL insulin pen 15 unit subcut TIDCM RF: 0 Lantus Solostar U-100 Insulin 100 unit/mL (3 mL) insulin pen 30 unit SUBCUT DAILY RF: 0 gabapentin 300 mg capsule 300 mg BID RF: 0 cyclobenzaprine 5 mg Tablet 5 mg PO QHS Qty: 0 RF: 0 melatonin 10 mg Tablet 10 mg PO QHS RF: 0 Discontinued carvedilol [Coreg] 6.25 mg tablet 6.25 mg PO BID Qty: 60 RF: 0 Other Ambulatory Orders: Basic Metabolic Profile (BMP) (Routine) Timeframe: 1 Week Facility: [facility] - Location: Laboratory Ordered By: Zach GRANADO CBC W/Diff, Automated (Routine) Timeframe: 1 Week Facility: [facility] - Location: Laboratory Ordered By: Zach GRANADO Referrals / Follow Up: Raúl Eric MD [Primary Care Provider] - Within 2 Weeks Disposition Disposition (needs filled in before D/C Order can be placed): Home, Self Care Documented by User: Dr. Rodney Yates MD 01/12/22 15:13 Providers Date of Admission: 01/06/22 Reason For Visit: ACUTE GASTROENTERITIS Medications at Discharge Home Medications atorvastatin 80 mg tablet 80 mg PO QHS #90 tablet 11/30/19 pramipexole 1.5 mg PO BID 09/12/20 isosorbide mononitrate 30 mg PO DAILY 03/03/21 oxycodone 5 mg PO TID 07/07/21 paroxetine HCl 20 mg PO QHS 07/07/21 bupropion HCl 150 mg PO.IVFORM DAILY 11/24/21 clopidogrel 75 mg PO DAILY 10/25/21 Lantus Solostar U-100 Insulin 30 unit SUBCUT DAILY 11/16/21 hydroxyzine HCl 25 mg PO DAILY 11/16/21 insulin lispro [Humalog KwikPen Insulin] 15 unit SUBCUT TIDCM 11/16/21 cyclobenzaprine 5 mg PO QHS #0 tab 12/23/21 gabapentin 300 mg BID 12/23/21 melatonin 10 mg PO QHS 01/05/22 carvedilol 3.125 mg PO BID #60 tab 01/12/22 cefepime 1 g IV Q24 #38 ea 01/12/22 Hospital Course Operations None Summary of Care Provided Minutes Spent on Discharge: 45 Hospital Course: This patient was seen in conjunction with Zach Mitsry PA-C. I have independently interviewed and examined the patient and reviewed pertinent historical, laboratory, and other data. Please refer to Zach Mistry PA-C's note for details of this patient's presentation, findings, and recommendations. I have reviewed Zach Mistry PA-C's note and concur with documented findings. In brief, patient is a 56-year-old lady with complicated past medical history including acute on chronic kidney disease stage IV, diabetes mellitus type 2, history of bilateral lower extremity diabetic foot ulcers who presented with cellulitis of both lower extremities right worse than left. Admitted to a monitored bed where patient was managed per protocol. Patient hospital stay complicated by staph aureus bacteremia. Echo obtained did not show any valvular abnormalities. Cultures from lower extremities came back positive for staph aureus Pseudomonas as well as Enterobacter imaging studies consistent with osteomyelitis. Consult placed to ID to assist in managing patient antibiotic therapy Hospital course; as documented above Total time spent by myself and the advanced practice practitioner evaluating patient, reviewing labs, subsequent management decisions, discussion with patient as well as other providers 40 minutes ( 25 of which was spent by myself) ABG / Lab / Microbiology Data Result Diagrams: 01/11/22 04:19 01/12/22 06:00 Discharge Plan Admission Admit Date/Time: 01/06/22 12:09 Primary Reason for Your Visit: Cellulitis Attending Provider: Rodney Yates Primary Care Provider: Raúl Eric Consulting Providers: Kayden Gann ; Kike Tello ; Angel Joel ; Homero Cleary Instructions Additional Instructions / Restrictions: * Follow up with your primary care provider or government affairs specialist in regards to adjusting your home diabetic regimen and blood sugars. They were erratic in the hospital (high and low), however your hemoglobin A1C was uncontrolled at 9.1. * Obtain weekly CBC's & BMP's to monitor your blood work. Discharge Orders/Prescriptions Prescriptions: New carvedilol 3.125 mg Tablet 3.125 mg PO BID Qty: 60 RF: 0 cefepime 1 gram Recon Soln 1 g IV Q24 Qty: 38 RF: 0 Continued atorvastatin 80 mg tablet 80 mg PO QHS Qty: 90 RF: 3 pramipexole 1 MG tablet 1.5 mg PO BID RF: 0 isosorbide mononitrate 30 mg tablet extended release 24 hr 30 mg PO DAILY RF: 0 paroxetine HCl 20 mg tablet 20 mg PO QHS RF: 0 oxycodone 5 mg tablet 5 mg PO TID RF: 0 bupropion HCl 150 mg PO.IVFORM DAILY RF: 0 clopidogrel 75 MG tablet 75 mg PO DAILY RF: 0 hydroxyzine HCl 25 mg Tablet 25 mg PO DAILY RF: 0 insulin lispro [Humalog KwikPen Insulin] 100 unit/mL insulin pen 15 unit subcut TIDCM RF: 0 Lantus Solostar U-100 Insulin 100 unit/mL (3 mL) insulin pen 30 unit SUBCUT DAILY RF: 0 gabapentin 300 mg capsule 300 mg BID RF: 0 cyclobenzaprine 5 mg Tablet 5 mg PO QHS Qty: 0 RF: 0 melatonin 10 mg Tablet 10 mg PO QHS RF: 0 Discontinued carvedilol [Coreg] 6.25 mg tablet 6.25 mg PO BID Qty: 60 RF: 0 Other Ambulatory Orders: Basic Metabolic Profile (BMP) (Routine) Timeframe: 1 Week Facility: [facility] - Location: Laboratory Ordered By: Zach GRANADO CBC W/Diff, Automated (Routine) Timeframe: 1 Week Facility: [facility] - Location: Laboratory Ordered By: Zach GRANADO Referrals / Follow Up: Raúl Eric MD [Primary Care Provider] - Within 2 Weeks Disposition Disposition (needs filled in before D/C Order can be placed): Home, Self Care Charges/Coding Visit Charges Inpatient E&M: [id number] Disch Hosp Hospital Course Consultations Consultations: Consultations 01/05/22 04:41 Consult: Onc/Wound/substation operator conversion Routine Comment: Reason for Consult:: Bilateral wound on plantar side of pain 01/06/22 07:15 Consult: Podiatry Routine Consulting Provider: Kayden Gann Reason for Consult: bilateral foot wounds EMERGENT Consult: No MD Notified: Yes Date Notified: 01/06/22 Time Notified: 09:41 Method of Notification: Verbal 01/06/22 10:45 Consult: Infectious Disease Routine Consulting Provider: Kike Tello Reason for Consult: Bacteremia EMERGENT Consult: No MD Notified: Yes Date Notified: 01/06/22 Time Notified: 11:38 Method of Notification: Text 01/06/22 11:13 Consult: Nephrology Routine Consulting Provider: Angel Joel Reason for Consult: FELI EMERGENT Consult: No Notified: Yes Date Notified: 01/06/22 Time Notified: 11:44 Method of Notification: Answering Service 01/07/22 07:54 Consult: Orthopedics Routine Consulting Provider: Homero Cleary Reason for Consult: Disc herniation EMERGENT Consult: No Notified: Yes Date Notified: 01/07/22 Time Notified: 07:55 Method of Notification: Verbal Operations None
--- NOTE | 2022-01-12 14:52 | CASEMGMT ---
Social Work 1148: Phone call to Cassie at [facility] to inquire about precert. [facility] states insurance has not yet confirmed approval for SNF. requested [facility] call insurance to check on approval as Dr. Steven was told during peer to peer pt was approved. 1324: Phone call to Cassie at [facility] to check on insurance auth. VM left. 1418: Phone call to Cassie at [facility] with no answer. Phone call to Zoila at [facility] and left inquiring about insurance auth. 1432: Return call from [facility] stating she spoke to business office and they have not received precert yet. requested business office contacts insurance to inquire. LOY Serrano updated. Pt updated on insurance process and that the plan continues to be for pt to go to [facility] when insurance auth is worked out. Lexie Aleman, [employer] notified of insurance issues. Green sheet placed on chart and Cassie at [facility] notified to call PCU if authorization is obtained. ERIN Masters
[2022-01-12 16:31] LABS: Bedside Glucose 132 mg/dL (74-106)
--- NOTE | 2022-01-12 16:40 | CASEMGMT ---
RN CM: Informed of peer to peer result not being communicated to [facility] to facilitate pt's discharge. This RN CM contacted Anjelica from [facility] prior authorization department to discuss this communication. Voicemail received and message left requesting a return call. Gus Aleman RN CM
[2022-01-12] MEDS: 0.9% Saline Lock 10 ML Syringe IV (21:23)
[2022-01-12] MEDS: cycloBENZAPRine HCl 5 MG TABLET PO (21:24)
[2022-01-12] MEDS: MELATONIN 10 MG TABLET PO (21:24)
[2022-01-12] MEDS: Atorvastatin Calcium 80 MG Tablet PO (21:24)
[2022-01-12] MEDS: Paroxetine 20 MG Tablet PO (21:26)
[2022-01-12 22:40] LABS: Bedside Glucose 130 mg/dL (74-106)
[2022-01-13] VITALS (9 sets, daily range): BP systolic 148–167; BP diastolic 71–91; PULSE 64–82; RESP 12–16; TEMP 36.2–36.8; O2SAT 95–98
[2022-01-13 06:22] LABS: ALB/GLOB Ratio 0.2 RATIO (0.9-2.4); AST(SGOT) 95 U/L (15-37); Alanine Aminotransfer ALT/SGPT 32 U/L (13-56); Albumin, Serum 1.4 g/dL (3.2-5.0); Alkaline Phosphatase 925 U/L (45-117); Anion Gap 7 (5-15); BUN 68 mg/dL (7-18); BUN/Creat Ratio 24.1 RATIO (10-20); Calcium,Total 8.5 mg/dL (8.5-10.1); Chloride 109 mmol/L (98-107); Creatinine, Serum 2.82 mg/dL (0.55-1.02); EST Glomerular Filtration Rate 18 mL/min (>60); Est Glom Filt Rate - Afr Amer 22 mL/min (>60); Estimated Creatinine Clearance 20.85 ml/min; Globulin 5.7 g/dL (2.2-4.2); Glucose 128 mg/dL (74-106); Potassium 5.1 mmol/L (3.5-5.1); Protein, Total 7.1 g/dL (6.4-8.2); Sodium Level 137 mmol/L (136-145)
[2022-01-13 06:25] LABS: Bedside Glucose 128 mg/dL (74-106)
--- NOTE | 2022-01-13 08:06 | PCM.HOSP.N ---
Hospitalist Note This is a retroactive progress note for 01/12/2022 as patient did not discharge as planned. Patient is a 56-year-old female who was admitted to [facility] on 01/05/2022 for evaluation and management of bilateral cellulitis. Patient was subsequently found to have staph aureus bacteremia as well as osteomyelitis caused by Enterobacter. Patient was supposed to discharge on 01/12/2022 to [facility], however patient was not discharged as [facility] has not received approval from patient's insurance. Please refer to discharge summary for appropriate physical exam findings. Patient will discharge when SNF has appropriate insurance approval. All medications have been reviewed and will be continued. Patient seen by Zach Mistry PA-C, under the supervision of Dr. Yates.
[2022-01-13] MEDS: DAKIN'S SOL HALF STRENGTH (=0.25%) 1 APPLIC TOPICAL (08:42)
--- NOTE | 2022-01-13 09:05 | WOUNDNOTE ---
wound photo: left foot
--- NOTE | 2022-01-13 09:05 | WOUNDNOTE ---
wound photo: right lateral foot
--- NOTE | 2022-01-13 09:07 | WOUNDNOTE ---
wound photo: right plantar foot
[2022-01-13] MEDS: Gabapentin 300 MG Capsule PO ×2 (09:27→22:34)
[2022-01-13] MEDS: Acetaminophen 325 MG Tablet 650 MG PO (09:27)
[2022-01-13] MEDS: Isosorbide Mononitrate 30 MG Tablet PO (09:27)
[2022-01-13] MEDS: hydrOXYzine PAM 25 MG Capsule PO (09:27)
[2022-01-13] MEDS: Pramipexole Di-HCl 0.5 MG Tablet 1.5 MG PO ×2 (09:27→22:34)
[2022-01-13] MEDS: guaiFENesin/D-Methorphan TAB.SR.12H 1 TABLET PO ×2 (09:27→22:33)
[2022-01-13] MEDS: buPROPion (XL) 150 MG TABLET.XL PO (09:27)
[2022-01-13] MEDS: Carvedilol 3.125 MG TABLET PO ×2 (09:27→11:30)
--- NOTE | 2022-01-13 09:46 | PN.RENAL_ITS ---
Subjective Subjective following for FELI on CKD Sitting in chair. No overnight events. Objective Data Objective Data Vital Signs: Vital Signs Temp Pulse Resp BP Pulse Ox 98.2 F 81 16 160/88 H 98 01/13/22 09:23 01/13/22 09:23 01/13/22 09:23 01/13/22 09:23 01/13/22 09:23 Oxygen Flow Rate (L/min) 6 Oxygen Delivery Method Room Air Weight: 95.2 kg Body Mass Index (BMI) 33.8 Intake & Output: Intake and Output for Last 24 Hours 01/11/22 01/12/22 01/13/22 23:59 23:59 23:59 Intake Total 500 / 740 1390 / 1390 Output Total 2200 / 2200 950 / 1150 900 / 900 Balance -1700 / -1460 440 / 240 -900 / -900 Lab / Micro Data Result Diagrams: 01/11/22 04:19 01/13/22 04:44 Labs: Laboratory Results - last 24 hr 01/12/22 11:12: POC Glucose 117 H 01/12/22 16:25: POC Glucose 132 H 01/12/22 21:21: POC Glucose 130 H 01/13/22 04:44: Sodium 137, Potassium 5.1, Chloride 109 H, Carbon Dioxide 21.0, Anion Gap 7, BUN 68 H, Creatinine 2.82 H, Estim Creat Clear Calc 20.85, Est GFR (MDRD) Af Amer 22 L, Est GFR (MDRD) Non-Af 18 L, BUN/Creatinine Ratio 24.1 H, Glucose 128 H, Calcium 8.5, Total Bilirubin 0.60, AST 95 H, ALT 32, Alkaline Phosphatase 925 H, Total Protein 7.1, Albumin 1.4 L, Globulin 5.7 H, Albumin/Globulin Ratio 0.2 L 01/13/22 06:09: POC Glucose 128 H Micro: Microbiology 01/08/22 Unknown Wound - Right Foot Gram Stain - Final 01/08/22 Unknown Wound - Right Foot Wound Culture - Preliminary Staphylococcus aureus Gram positive organism 01/08/22 Unknown Wound - Right Foot Anaerobic Culture - Final Anaerobic cocci 01/08/22 Unknown Wound - Right Foot Gram Stain - Final 01/08/22 Unknown Wound - Right Foot Wound Culture - Preliminary Staphylococcus aureus Gram positive organism 01/08/22 Unknown Wound - Right Foot Anaerobic Culture - Final No anaerobic bacteria isolated. 01/08/22 Unknown Wound - Right Foot Gram Stain - Final 01/08/22 Unknown Wound - Right Foot Wound Culture - Final Staphylococcus aureus Streptococcus sanguinis 01/08/22 Unknown Wound - Right Foot Anaerobic Culture - Preliminary 01/08/22 Unknown Wound Abcess - Right Foot Gram Stain - Final 01/08/22 Unknown Wound Abcess - Right Foot Wound Culture - Final Staphylococcus aureus Streptococcus sanguinis 01/08/22 Unknown Wound Abcess - Right Foot Anaerobic Culture - Preliminary 01/12/22 14:30 Nasal Secretion SARS-CoV-2 Antigen (Rapid) - Final 01/07/22 10:23 Blood Culture (Wb) - Left Hand Blood Culture - Final No growth in 5 days. 01/06/22 12:30 Blood Culture (Wb) - Right Hand Blood Culture - Final Staphylococcus aureus 01/08/22 12:14 Blood Culture (Wb) - Anticubital Left Blood Culture - Preliminary No growth in 48 hours. 01/05/22 01:15 Wound - Left Foot Gram Stain - Final 01/05/22 01:15 Wound - Left Foot Wound Culture - Final Staphylococcus aureus Enterobacter cloacae complex Streptococcus sanguinis 01/05/22 01:15 Wound - Right Foot Gram Stain - Final 01/05/22 01:15 Wound - Right Foot Wound Culture - Final Staphylococcus aureus Pseudomonas aeroginosa Enterobacter cloacae complex 01/07/22 03:55 Stool Stool Occult Blood (MIKE) - Final 01/05/22 00:25 Urine Catheter - Catheter Urine Culture - Final Culture exhibits no growth. 01/05/22 01:00 Blood Culture (Wb) - Left Hand Bacteria Detection (PCR) - Final Staphylococcus aureus 01/05/22 01:00 Blood Culture (Wb) - Left Hand Blood Culture - Final Staphylococcus aureus 01/05/22 00:45 Blood Culture (Wb) - Arm Left Blood Culture - Final Staphylococcus aureus 01/05/22 02:23 Nasal Secretion SARS-CoV-2 & FLU Antigen (Rapid) - Final Physical Exam Narrative Alert awake oriented x 3 no JVD s1s2 no murmurs lungs clear anteriorly abdomen soft, non-tender MYLA wrap b/l LE, +edema above wraps Assessment & Plan Assessment/Plan (1) FELI (acute kidney injury): PLAN: - Nonoliguric FELI is due to ATN from hypotension, infection. Patient is nonoliguric. -Serum creatinine was 2.9 mg/dL on admission and peaked to 3.85 mg/dL on 01/09/2022. Overall renal function is stable with improvement, today serum creatinine 2.82 mg/dL -The patient is not hyperkalemic, overtly volume overloaded, or severely acidotic. -There is no need for kidney replacement therapy at this point. -Patient in nonoliguric, has good urine output - bps were low but have improved, now on Coreg and Imdur. Will increase coreg (2) Chronic kidney disease, stage 3b: PLAN: -The patient has CKD stage IIIb with baseline creatinine around 1.8- 2.0mg/dL. -There has been fluctuations of renal function over the last several years. -The patient has significant proteinuria likely related to diabetic nephropathy. - bacteremia/bilateral leg cellulitis/chronic ulcers s/p I&D. On cefepime - ok for discharge per renal - possible discharge to ECF today, patient will need nephrology follow-up. D/w discharge team. Patient today stated she has seen Dr. Mancilla for nephrology care. Encouraged patient to follow up with Dr. Mancilla.
--- NOTE | 2022-01-13 09:49 | PN.HOSP_ITS ---
Subjective Subjective Late entry note for 01/12/2022 Patient is a 56-year-old lady with complicated past medical history including acute on chronic kidney disease stage IV, diabetes mellitus type 2, history of bilateral lower extremity diabetic foot ulcers who presented with cellulitis of both lower extremities right worse than left. Admitted to a monitored bed where patient was managed per protocol. Patient hospital stay complicated by staph aureus bacteremia. Echo obtained did not show any valvular abnormalities. Cultures from lower extremities came back positive for staph aureus Pseudomonas as well as Enterobacter imaging studies consistent with osteomyelitis. Consult placed to ID to assist in managing patient antibiotic therapy Objective Data Objective Data Vital Signs: Vital Signs Temp Pulse Resp BP Pulse Ox 98.2 F 81 16 160/88 H 98 01/13/22 09:23 01/13/22 09:23 01/13/22 09:23 01/13/22 09:23 01/13/22 09:23 Oxygen Flow Rate (L/min) 6 Oxygen Delivery Method Room Air Weight: 95.2 kg Body Mass Index (BMI) 33.8 Intake & Output: Intake and Output for Last 24 Hours 01/11/22 01/12/22 01/13/22 23:59 23:59 23:59 Intake Total 500 / 740 1390 / 1390 Output Total 2200 / 2200 950 / 1150 900 / 900 Balance -1700 / -1460 440 / 240 -900 / -900 Lab / Micro Data Result Diagrams: 01/11/22 04:19 01/13/22 04:44 Labs: Laboratory Results - last 24 hr 01/12/22 11:12: POC Glucose 117 H 01/12/22 16:25: POC Glucose 132 H 01/12/22 21:21: POC Glucose 130 H 01/13/22 04:44: Sodium 137, Potassium 5.1, Chloride 109 H, Carbon Dioxide 21.0, Anion Gap 7, BUN 68 H, Creatinine 2.82 H, Estim Creat Clear Calc 20.85, Est GFR (MDRD) Af Amer 22 L, Est GFR (MDRD) Non-Af 18 L, BUN/Creatinine Ratio 24.1 H, Glucose 128 H, Calcium 8.5, Total Bilirubin 0.60, AST 95 H, ALT 32, Alkaline Phosphatase 925 H, Total Protein 7.1, Albumin 1.4 L, Globulin 5.7 H, Albumin/Globulin Ratio 0.2 L 01/13/22 06:09: POC Glucose 128 H Micro: Microbiology 01/08/22 Unknown Wound Abcess - Right Foot Gram Stain - Final 01/08/22 Unknown Wound Abcess - Right Foot Wound Culture - Final Staphylococcus aureus Streptococcus sanguinis 01/08/22 Unknown Wound Abcess - Right Foot Anaerobic Culture - Preliminary 01/08/22 Unknown Wound - Right Foot Gram Stain - Final 01/08/22 Unknown Wound - Right Foot Wound Culture - Preliminary Staphylococcus aureus Gram positive organism 01/08/22 Unknown Wound - Right Foot Anaerobic Culture - Final Anaerobic cocci 01/08/22 Unknown Wound - Right Foot Gram Stain - Final 01/08/22 Unknown Wound - Right Foot Wound Culture - Preliminary Staphylococcus aureus Gram positive organism 01/08/22 Unknown Wound - Right Foot Anaerobic Culture - Final No anaerobic bacteria isolated. 01/08/22 Unknown Wound - Right Foot Gram Stain - Final 01/08/22 Unknown Wound - Right Foot Wound Culture - Final Staphylococcus aureus Streptococcus sanguinis 01/08/22 Unknown Wound - Right Foot Anaerobic Culture - Preliminary 01/12/22 14:30 Nasal Secretion SARS-CoV-2 Antigen (Rapid) - Final 01/07/22 10:23 Blood Culture (Wb) - Left Hand Blood Culture - Final No growth in 5 days. 01/06/22 12:30 Blood Culture (Wb) - Right Hand Blood Culture - Final Staphylococcus aureus 01/08/22 12:14 Blood Culture (Wb) - Anticubital Left Blood Culture - Preliminary No growth in 48 hours. 01/05/22 01:15 Wound - Left Foot Gram Stain - Final 01/05/22 01:15 Wound - Left Foot Wound Culture - Final Staphylococcus aureus Enterobacter cloacae complex Streptococcus sanguinis 01/05/22 01:15 Wound - Right Foot Gram Stain - Final 01/05/22 01:15 Wound - Right Foot Wound Culture - Final Staphylococcus aureus Pseudomonas aeroginosa Enterobacter cloacae complex 01/07/22 03:55 Stool Stool Occult Blood (MIKE) - Final 01/05/22 00:25 Urine Catheter - Catheter Urine Culture - Final Culture exhibits no growth. 01/05/22 01:00 Blood Culture (Wb) - Left Hand Bacteria Detection (PCR) - Final Staphylococcus aureus 01/05/22 01:00 Blood Culture (Wb) - Left Hand Blood Culture - Final Staphylococcus aureus 01/05/22 00:45 Blood Culture (Wb) - Arm Left Blood Culture - Final Staphylococcus aureus 01/05/22 02:23 Nasal Secretion SARS-CoV-2 & FLU Antigen (Rapid) - Final Assessment & Plan Assessment/Plan (1) FELI (acute kidney injury): (2) Chronic kidney disease, stage 3b: (3) Cellulitis of right foot: PLAN: Patient is a 56-year-old lady with complicated past medical history including acute on chronic kidney disease stage IV, diabetes mellitus type 2, history of bilateral lower extremity diabetic foot ulcers who presented with cellulitis of both lower extremities right worse than left. Admitted to a monitored bed where patient was managed per protocol. Patient hospital stay complicated by staph aureus bacteremia. Echo obtained did not show any valvular abnormalities. Cultures from lower extremities came back positive for staph aureus Pseudomonas as well as Enterobacter imaging studies consistent with osteomyelitis. Consult placed to ID to assist in managing patient antibiotic therapy 1. Cellulitis and abscess involving an infected right foot wound, Osteomyelitis involving the fifth metatarsal right foot ?Wound cultures grew staph aureus Pseudomonas and Enterobacter. Patient has history of recurrent infections consult was placed to right wrist surgery patient underwent incision and sharp debridement of ulceration to partial-t hickness and debridement of bone with bone biopsy of the fifth metatarsal right foot on 01/08/2022. Patient has since been managed with broad-spectrum antibiotic therapy. Consult placed to ID 2. Staph aureus bacteremia ?Echo obtained did not demonstrate any valvular abnormalities suggestive of end ocarditis. Remains on broad-spectrum antibiotic therapy with ID on consult 3. Acute kidney injury ?Superimposed on chronic kidney disease stage IV. Monitoring with daily BMPs nephrology following 4. Anemia - Secondary to chronic disorder monitoring H&H and transfuse if patient becomes symptomatic or hemoglobin falls below 7 5. Diabetes mellitus type II ?With complications including Charcot foot as well as diabetic foot ulcers. Patient is onlong acting insulin, Accu-Cheks a.c. and at bedtime and covered with sliding scale insulin 6. Depression with anxiety ?Patient is on SSRI 7. Dyslipidemia -Patient is on statin therapy, continued at home dose 8. Hypotension ?Patient has history of essential hypertension her antihypertensives held 9. Chronic back pain ?Patient is managed with outpatient epidural steroid injection 10. DVT prophylaxis - Heparin SC 11. Physical deconditioning - Requested for PT OT eval and social science instructor to assist with discharge planning Charges/Coding Visit Charges Inpatient E&M: 54098 Subs Hosp L2
[2022-01-13] MEDS: Insulin Glargine-YFGN 100 UNIT/ML Pen 10 UNIT SC (11:30)
[2022-01-13] MEDS: Insulin Lispro 100 UNIT/ML INSULN.PEN SC ×3 (11:30→22:34)
[2022-01-13 11:31] LABS: Bedside Glucose 167 mg/dL (74-106)
--- NOTE | 2022-01-13 13:16 | CASEMGMT ---
Social Work Phone calls placed to Cassie at [facility] to check on insurance verification at [phone] and [phone]. is full and unable to accept messages. left with Zoila at [facility] at 1105. Phone call placed to [facility] main line with no answer and call was transferred to [facility] in [place]. Lexie Marrufo, Health Advocate updated. Lexie to reach out to [facility] to address insurance issues. At this time precert has not been granted to [facility] for pt admission therefore pt cannot discharge. ERIN Masters
[2022-01-13] MEDS: oxyCODONE 5 MG Tablet PO ×2 (13:33→22:33)
--- NOTE | 2022-01-13 14:31 | PCM.PN.HOSP ---
Documented by User: Zach GRANADO 01/13/22 14:44 Subjective Subjective Patient is a 56-year-old female comfortably resting in a chair, alert and orient x3. Patient denies development of any new symptoms overnight. Does not appear in acute distress. Objective Data Objective Data Vital Signs: Vital Signs Temp Pulse Resp BP Pulse Ox 98.2 F 79 12 157/71 H 98 01/13/22 11:25 01/13/22 11:25 01/13/22 11:25 01/13/22 13:32 01/13/22 11:25 Oxygen Flow Rate (L/min) 6 Oxygen Delivery Method Room Air Weight: 209 lb 14.081 oz Body Mass Index (BMI) 33.8 Intake & Output: Intake and Output for Last 24 Hours 01/11/22 01/12/22 01/13/22 23:59 23:59 23:59 Intake Total 500 / 740 1390 / 1390 550 / 550 Output Total 2200 / 2200 950 / 1150 900 / 900 Balance -1700 / -1460 440 / 240 -350 / -350 Lab / Micro Data Result Diagrams: 01/11/22 04:19 01/13/22 04:44 Labs: Laboratory Results - last 24 hr 01/12/22 16:25: POC Glucose 132 H 01/12/22 21:21: POC Glucose 130 H 01/13/22 04:44: Sodium 137, Potassium 5.1, Chloride 109 H, Carbon Dioxide 21.0, Anion Gap 7, BUN 68 H, Creatinine 2.82 H, Estim Creat Clear Calc 20.85, Est GFR (MDRD) Af Amer 22 L, Est GFR (MDRD) Non-Af 18 L, BUN/Creatinine Ratio 24.1 H, Glucose 128 H, Calcium 8.5, Total Bilirubin 0.60, AST 95 H, ALT 32, Alkaline Phosphatase 925 H, Total Protein 7.1, Albumin 1.4 L, Globulin 5.7 H, Albumin/Globulin Ratio 0.2 L 01/13/22 06:09: POC Glucose 128 H 01/13/22 11:22: POC Glucose 167 H Micro: Microbiology 01/08/22 Unknown Wound - Right Foot Gram Stain - Final 01/08/22 Unknown Wound - Right Foot Wound Culture - Final Staphylococcus aureus Streptococcus sanguinis 01/08/22 Unknown Wound - Right Foot Anaerobic Culture - Final No anaerobic bacteria isolated. 01/08/22 Unknown Wound - Right Foot Gram Stain - Final 01/08/22 Unknown Wound - Right Foot Wound Culture - Final Staphylococcus aureus Streptococcus sanguinis 01/08/22 Unknown Wound - Right Foot Anaerobic Culture - Final Anaerobic cocci 01/08/22 Unknown Wound - Right Foot Gram Stain - Final 01/08/22 Unknown Wound - Right Foot Wound Culture - Final Staphylococcus aureus Streptococcus sanguinis 01/08/22 Unknown Wound - Right Foot Anaerobic Culture - Preliminary 01/08/22 Unknown Wound Abcess - Right Foot Gram Stain - Final 01/08/22 Unknown Wound Abcess - Right Foot Wound Culture - Final Staphylococcus aureus Streptococcus sanguinis 01/08/22 Unknown Wound Abcess - Right Foot Anaerobic Culture - Preliminary 01/12/22 14:30 Nasal Secretion SARS-CoV-2 Antigen (Rapid) - Final 01/07/22 10:23 Blood Culture (Wb) - Left Hand Blood Culture - Final No growth in 5 days. 01/06/22 12:30 Blood Culture (Wb) - Right Hand Blood Culture - Final Staphylococcus aureus 01/08/22 12:14 Blood Culture (Wb) - Anticubital Left Blood Culture - Preliminary No growth in 48 hours. 01/05/22 01:15 Wound - Left Foot Gram Stain - Final 01/05/22 01:15 Wound - Left Foot Wound Culture - Final Staphylococcus aureus Enterobacter cloacae complex Streptococcus sanguinis 01/05/22 01:15 Wound - Right Foot Gram Stain - Final 01/05/22 01:15 Wound - Right Foot Wound Culture - Final Staphylococcus aureus Pseudomonas aeroginosa Enterobacter cloacae complex 01/07/22 03:55 Stool Stool Occult Blood (MIKE) - Final 01/05/22 00:25 Urine Catheter - Catheter Urine Culture - Final Culture exhibits no growth. 01/05/22 01:00 Blood Culture (Wb) - Left Hand Bacteria Detection (PCR) - Final Staphylococcus aureus 01/05/22 01:00 Blood Culture (Wb) - Left Hand Blood Culture - Final Staphylococcus aureus 01/05/22 00:45 Blood Culture (Wb) - Arm Left Blood Culture - Final Staphylococcus aureus 01/05/22 02:23 Nasal Secretion SARS-CoV-2 & FLU Antigen (Rapid) - Final Physical Exam Const alert, oriented x3 and no apparent distress HEENT head/scalp atraumatic and moist oral mucous membranes Head and Scalp: normocephalic Eyes PERRL and conjunctivae normal Neck no lymphadenopathy, supple and no JVD Resp normal respiratory effort, no retractions and no use of accessory muscles Cardio regular rate, regular rhythm and no JVD GI normal to inspection, nondistended, normoactive bowel sounds Extremity normal to inspection Skin no rashes or lesions noted Neuro CN's II-XII intact bilaterally Psych affect normal Assessment & Plan Assessment/Plan (1) Cellulitis of right foot: (2) Osteomyelitis of metatarsal: (3) Abscess of right foot: (4) Chronic kidney disease, stage 3b: PLAN: Day 8 Discharge planning: Current plan is for patient to discharge to [facility] pending acceptance and pre-CERT. 1) acute staph aureus bacteremia Repeat blood cultures obtained on 01/08 were negative. Echo shows EF 55%, no valvular abnormalities ID consulted, recommendations are to continue cefazolin till December 20, 2021. 2) Acute staph aureus/pseudomonas/entero bacter osteomyelitis/cellulitis of lower extremities Status post wound debridement on 01/08/2022. Podiatry following. 3) anemia Combined mixed etiology of anemia of chronic disease and iron deficiency. Status post x2 PRBC transfusion. We will continue to follow. 4) FELI on CKD stage IV Renal function is stable. Creatinine currently 2.82, baseline appears between 2.5 and 3. Nephrology following. 5) DM2 Sugars are stable, continue basal and bolus insulin. Continue Accu-Cheks sliding scale insulin. DVT prophylaxis - Heparin Patient seen by Zach Mistry PA-C, under the supervision of Dr. Yates. Documented by User: Dr. Rodney Yates MD 01/13/22 15:00 Objective Data Lab / Micro Data Result Diagrams: 01/11/22 04:19 01/13/22 04:44 Assessment & Plan Addt'l Comments This patient was seen in conjunction with Zach Mistry PA-C. I have independently interviewed and examined the patient and reviewed pertinent historical, laboratory, and other data. Please refer to Zach Mistry PA-C's note for details of this patient's presentation, findings, and recommendations. I have reviewed Zach Mistry PA-C's note and concur with documented findings. In brief, Patient is a 56-year-old lady with complicated past medical history including acute on chronic kidney disease stage IV, diabetes mellitus type 2, history of bilateral lower extremity diabetic foot ulcers who presented with cellulitis of both lower extremities right worse than left. Admitted to a monitored bed where patient was managed per protocol. Patient hospital stay complicated by staph aureus bacteremia. Echo obtained did not show any valvular abnormalities. Cultures from lower extremities came back positive for staph aureus Pseudomonas as well as Enterobacter imaging studies consistent with osteomyelitis. Consult placed to ID to assist in managing patient antibiotic therapy Physical Examination: GENERAL: Tearful HEENT: Atraumatic; EYES; Anicteric, Normal Conjunctiva NECK; supple, normal thyroid, RESPIRATORY: Diminished to auscultation CARDIOVASCULAR: Regular S1 S2, GI: soft, normoactive bowel sounds, : No Renal angle tenderness; EXTREMITIES: Right lower extremity in surgical dressing MUSCULOSKELETAL: no muscle wasting NEURO: Awake; no lateralizing signs. SKIN: No Rash PSYCH; depressed Assessment: . Cellulitis and abscess involving an infected right foot wound, Osteomyelitis involving the fifth metatarsal right foot ?Wound cultures grew staph aureus Pseudomonas and Enterobacter. Patient has history of recurrent infections consult was placed to right wrist surgery patient underwent incision and sharp debridement of ulceration to partial-thickness and debridement of bone with bone biopsy of the fifth metatarsal right foot on 01/08/2022. Patient has since been managed with broad-spectrum antibiotic therapy. Consult placed to ID 2. Staph aureus bacteremia ?Echo obtained did not demonstrate any valvular abnormalities suggestive of endocarditis. Remains on broad-spectrum antibiotic therapy with ID on consult 3. Acute kidney injury ?Superimposed on chronic kidney disease stage IV. Monitoring with daily BMPs nephrology following 4. Anemia - Secondary to chronic disorder monitoring H&H and transfuse if patient becomes symptomatic or hemoglobin falls below 7 5. Diabetes mellitus type II ?With complications including Charcot foot as well as diabetic foot ulcers. Patient is onlong acting insulin, Accu-Cheks a.c. and at bedtime and covered with sliding scale insulin 6. Depression with anxiety ?Patient is on SSRI 7. Dyslipidemia -Patient is on statin therapy, continued at home dose 8. Hypotension ?Patient has history of essential hypertension her antihypertensives held 9. Chronic back pain ?Patient is managed with outpatient epidural steroid injection 10. DVT prophylaxis - Heparin SC 11. Physical deconditioning - Requested for PT OT eval and geriatric social work professor to assist with discharge planning Recommendations: 1. I have discussed the results of my overview and impressions with the patient 2. Options for management were reviewed Total time spent by myself and the advanced practice practitioner evaluating patient, reviewing labs, subsequent management decisions, discussion with patient as well as other providers 40 minutes ( 25 of which was spent by myself) Charges/Coding Visit Charges Inpatient E&M: 11814 Subs Hosp L2
--- NOTE | 2022-01-13 15:23 | CASEMGMT ---
This KELSIE IRELAND received call from Lori Jaeger pt's jimmy IRELAND, requesting d/c plan and admit dx. CM updated at this time. CM contact info: ph: [phone] fax: [phone]. Mary Ann IGLESIAS CM
[2022-01-13 16:20] LABS: Bedside Glucose 165 mg/dL (74-106)
[2022-01-13] MEDS: Paroxetine 20 MG Tablet PO (22:33)
[2022-01-13] MEDS: cycloBENZAPRine HCl 5 MG TABLET PO (22:33)
[2022-01-13] MEDS: Carvedilol 6.25 MG Tablet PO (22:33)
[2022-01-13] MEDS: MELATONIN 10 MG TABLET PO (22:33)
[2022-01-13] MEDS: Atorvastatin Calcium 80 MG Tablet PO (22:33)
[2022-01-14] VITALS (9 sets, daily range): BP systolic 143–152; BP diastolic 70–83; PULSE 69–75; RESP 16; TEMP 36.6–36.7; O2SAT 97–100
[2022-01-14 00:46] LABS: Bedside Glucose 208 mg/dL (74-106)
[2022-01-14 04:54] LABS: Absolute Lymphocyte Count 0.89 X10^3/uL (0.83-4.51); Absolute Neutrophil Count 9.3 X10^3/uL (2.0-7.7); Basophil# 0.05 X10^3/uL; Basophil% 0.4 % (0-1); Eosinophil# 0.36 X10^3/uL; Eosinophils% 3.2 % (0-5); Hematocrit 28.2 % (37-47); Hemoglobin 8.9 g/dL (12.0-15.0); Lymphocyte # 0.89 X10^3/ul (0.83-4.51); Lymphocyte % 7.8 % (19-41); Mean Corp Hgb Conc 31.6 g/dL (32-36); Mean Corpuscular Hgb 28.1 pg (27.0-32.0); Mean Platelet Vol. 10.1 fl (6.2-12.0); Monocyte# 0.58 X10^3/uL; Monocyte% 5.1 % (0-10); NRBC Flagged by Analyzer 0 % (0-5); Neutrophil # 9.31 X10^3/uL (2.7-7.7); Neutrophil % 81.6 % (47-70); Platelet Count 326 K/mm3 (150-450); RBC Distribution Width CV 15.8 % (11.6-14.6); Red Blood Count 3.17 M/mm3 (4.2-5.4); White Blood Count 11.4 K/mm3 (4.4-11.0)
[2022-01-14 05:33] LABS: Anion Gap 5 (5-15); BUN 58 mg/dL (7-18); BUN/Creat Ratio 22.8 RATIO (10-20); Chloride 111 mmol/L (98-107); Creatinine, Serum 2.54 mg/dL (0.55-1.02); EST Glomerular Filtration Rate 21 mL/min (>60); Est Glom Filt Rate - Afr Amer 25 mL/min (>60); Estimated Creatinine Clearance 23.15 ml/min; Glucose 156 mg/dL (74-106); Potassium 4.5 mmol/L (3.5-5.1); Sodium Level 138 mmol/L (136-145)
[2022-01-14] MEDS: oxyCODONE 5 MG Tablet PO ×2 (06:11→15:05)
[2022-01-14] MEDS: Insulin Lispro 100 UNIT/ML INSULN.PEN SC ×2 (06:12→12:00)
[2022-01-14 06:50] LABS: Bedside Glucose 158 mg/dL (74-106)
[2022-01-14] MEDS: Gabapentin 300 MG Capsule PO (07:38)
[2022-01-14] MEDS: Pramipexole Di-HCl 0.5 MG Tablet 1.5 MG PO (07:38)
[2022-01-14] MEDS: guaiFENesin/D-Methorphan TAB.SR.12H 1 TABLET PO (07:39)
[2022-01-14] MEDS: Isosorbide Mononitrate 30 MG Tablet PO (07:39)
[2022-01-14] MEDS: buPROPion (XL) 150 MG TABLET.XL PO (07:39)
[2022-01-14] MEDS: Carvedilol 6.25 MG Tablet PO (07:39)
[2022-01-14] MEDS: Insulin Glargine-YFGN 100 UNIT/ML Pen 10 UNIT SC (07:40)
[2022-01-14] MEDS: hydrOXYzine PAM 25 MG Capsule PO (07:40)
--- NOTE | 2022-01-14 08:47 | PN_ITS ---
Subjective Subjective 56-year-old diabetic female was seen bedside for chronic bilateral foot ulceration secondary to diabetic neuropathy and positional deformity of the foot and is admitted due to a acute infection with bacteremia to her right foot which underwent incision and drainage upon this admission with delayed primary closure. She denies any pain at current. She denies any constitutional symptoms. She denies any changes overnight. She notes that she is feeling better since her admission. Objective Data Objective Data Vital Signs: Vital Signs Temp Pulse Resp BP Pulse Ox 98.1 F 75 16 143/70 H 97 01/14/22 02:32 01/14/22 07:23 01/14/22 02:32 01/14/22 02:32 01/14/22 02:32 Oxygen Flow Rate (L/min) 6 Oxygen Delivery Method Room Air Weight: 95.2 kg Body Mass Index (BMI) 33.8 Intake & Output: Intake and Output for Last 24 Hours 01/12/22 01/13/22 01/14/22 23:59 23:59 23:59 Intake Total 1390 / 1390 1170 / 1170 Output Total 950 / 1150 900 / 900 Balance 440 / 240 270 / 270 Lab / Micro Data Result Diagrams: 01/14/22 04:33 01/14/22 04:33 Labs: Laboratory Results - last 24 hr 01/13/22 11:22: POC Glucose 167 H 01/13/22 16:15: POC Glucose 165 H 01/13/22 22:27: POC Glucose 208 H 01/14/22 04:33: WBC 11.4 H, RBC 3.17 L, Hgb 8.9 L, Hct 28.2 L, MCV 89.0, MCH 28.1, MCHC 31.6 L, RDW Std Deviation 51.0 H, RDW Coeff of Fior 15.8 H, Plt Count 326, MPV 10.1, Immature Gran % (Auto) 1.900 H, Neut % (Auto) 81.6 H, Lymph % (Auto) 7.8 L, [place] % (Auto) 5.1, Eos % (Auto) 3.2, Baso % (Auto) 0.4, Absolute Neuts (auto) 9.3 H, Absolute Lymphs (auto) 0.89, Nucleated RBC % 0 01/14/22 04:33: Sodium 138, Potassium 4.5, Chloride 111 H, Carbon Dioxide 22.0, Anion Gap 5, BUN 58 H, Creatinine 2.54 H, Estim Creat Clear Calc 23.15, Est GFR (MDRD) Af Amer 25 L, Est GFR (MDRD) Non-Af 21 L, BUN/Creatinine Ratio 22.8 H, Glucose 156 H, Calcium 8.0 L 01/14/22 06:09: POC Glucose 158 H Micro: Microbiology 01/08/22 Unknown Wound - Right Foot Gram Stain - Final 01/08/22 Unknown Wound - Right Foot Wound Culture - Final Staphylococcus aureus Streptococcus sanguinis 01/08/22 Unknown Wound - Right Foot Anaerobic Culture - Final Prevotella bivia 01/08/22 Unknown Wound Abcess - Right Foot Gram Stain - Final 01/08/22 Unknown Wound Abcess - Right Foot Wound Culture - Final Staphylococcus aureus Streptococcus sanguinis 01/08/22 Unknown Wound Abcess - Right Foot Anaerobic Culture - Final Prevotella bivia 01/08/22 12:14 Blood Culture (Wb) - Anticubital Left Blood Culture - Final No growth in 5 days. 01/08/22 Unknown Wound - Right Foot Gram Stain - Final 01/08/22 Unknown Wound - Right Foot Wound Culture - Final Staphylococcus aureus Streptococcus sanguinis 01/08/22 Unknown Wound - Right Foot Anaerobic Culture - Final No anaerobic bacteria isolated. 01/08/22 Unknown Wound - Right Foot Gram Stain - Final 01/08/22 Unknown Wound - Right Foot Wound Culture - Final Staphylococcus aureus Streptococcus sanguinis 01/08/22 Unknown Wound - Right Foot Anaerobic Culture - Final Anaerobic cocci 01/12/22 14:30 Nasal Secretion SARS-CoV-2 Antigen (Rapid) - Final 01/07/22 10:23 Blood Culture (Wb) - Left Hand Blood Culture - Final No growth in 5 days. 01/06/22 12:30 Blood Culture (Wb) - Right Hand Blood Culture - Final Staphylococcus aureus 01/05/22 01:15 Wound - Left Foot Gram Stain - Final 01/05/22 01:15 Wound - Left Foot Wound Culture - Final Staphylococcus aureus Enterobacter cloacae complex Streptococcus sanguinis 01/05/22 01:15 Wound - Right Foot Gram Stain - Final 01/05/22 01:15 Wound - Right Foot Wound Culture - Final Staphylococcus aureus Pseudomonas aeroginosa Enterobacter cloacae complex 01/07/22 03:55 Stool Stool Occult Blood (MIKE) - Final 01/05/22 00:25 Urine Catheter - Catheter Urine Culture - Final Culture exhibits no growth. 01/05/22 01:00 Blood Culture (Wb) - Left Hand Bacteria Detection (PCR) - Final Staphylococcus aureus 01/05/22 01:00 Blood Culture (Wb) - Left Hand Blood Culture - Final Staphylococcus aureus 01/05/22 00:45 Blood Culture (Wb) - Arm Left Blood Culture - Final Staphylococcus aureus 01/05/22 02:23 Nasal Secretion SARS-CoV-2 & FLU Antigen (Rapid) - Final Physical Exam Const alert, oriented x3, no apparent distress and well nourished General Appearance: cooperative and comfortable HEENT normocephalic Eyes General Eye: normal appearance of both eyes Neck General: normal visual inspection Lymph Lymphatic: no lymphadenopathy noted and no lymphedema noted Resp normal respiratory effort Cardio regular rate and regular rhythm Extremity normal capillary refill and no calf tenderness Skin no rashes or lesions noted and no jaundice Wound Narrative: Left foot plantar ulceration subfifth metatarsal secondary to Charcot deformity demonstrates healthy granular base with hyperkeratotic rim. No localized erythema about ulcer site. No erythema dorsal foot. Ulceration demonstrates no purulent drainage or malodor. Surrounding skin is atrophic. Right foot plantar ulceration subfifth metatarsal secondary to Charcot foot deformity demonstrates healthy granular base post debridement with packing gauze intact plantar foot. Lateral incision distal sutures intact with proximal portion open with iodoform packing gauze intact. Dorsal foot demonstrates resolving erythema. Ulcerative site probes to bone. Neuro oriented x3 and moves all extremities Assessment & Plan Assessment/Plan (1) Cellulitis of right foot: (2) Non-pressure chronic 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 layer exposed: (3) Abscess of right foot: (4) Osteomyelitis of metatarsal: (5) Diabetic foot infection: (6) Charcot's joint, right ankle and foot: PLAN: She examined evaluated, all findings cussed with patient in detail. Dressings to bilateral feet were changed. Wound sites examined, no signs of infection to left foot. Resolving right foot infection with improved edema and erythema. And underwent incision and drainage of the right foot on 01/08/2022 with subsequent delayed primary closure. There is significant improvement to her infection on right. Patient vital signs are stable. Labs improved, no leukocytosis. Infectious disease on board patient receiving IV cefepime will discharge to SNF. Continue nonweightbearing to right lower extremity and receive IV cefepime through a PICC line. Patient will follow up with Dr. Azeem galdamez at the wound care center. Stable for discharge from podiatry standpoint. Continue to follow patient closely while in the hospital. Jr. Terrell Guzman.P.M. [facility] [phone] Note: [employer] speech recognition sales closer software was used to create portions of this document. Sound-alike and misspelled words, as well as other sales closer errors may be contained in the documentation.
[2022-01-14] MEDS: DAKIN'S SOL HALF STRENGTH (=0.25%) 1 APPLIC TOPICAL (08:53)
--- NOTE | 2022-01-14 09:45 | PN.RENAL_ITS ---
Subjective Subjective Following for FELI on CKD Resting quietly, hopeful to be discharged today to ECF. Objective Data Objective Data Vital Signs: Vital Signs Temp Pulse Resp BP Pulse Ox 97.8 F 69 16 152/83 H 100 01/14/22 09:03 01/14/22 09:03 01/14/22 09:03 01/14/22 09:03 01/14/22 09:03 Oxygen Flow Rate (L/min) 6 Oxygen Delivery Method Room Air Weight: 95.2 kg Body Mass Index (BMI) 33.8 Intake & Output: Intake and Output for Last 24 Hours 01/12/22 01/13/22 01/14/22 23:59 23:59 23:59 Intake Total 1390 / 1390 1170 / 1170 Output Total 950 / 1150 900 / 900 Balance 440 / 240 270 / 270 Lab / Micro Data Result Diagrams: 01/14/22 04:33 01/14/22 04:33 Labs: Laboratory Results - last 24 hr 01/13/22 11:22: POC Glucose 167 H 01/13/22 16:15: POC Glucose 165 H 01/13/22 22:27: POC Glucose 208 H 01/14/22 04:33: WBC 11.4 H, RBC 3.17 L, Hgb 8.9 L, Hct 28.2 L, MCV 89.0, MCH 28.1, MCHC 31.6 L, RDW Std Deviation 51.0 H, RDW Coeff of Fior 15.8 H, Plt Count 326, MPV 10.1, Immature Gran % (Auto) 1.900 H, Neut % (Auto) 81.6 H, Lymph % (Auto) 7.8 L, [place] % (Auto) 5.1, Eos % (Auto) 3.2, Baso % (Auto) 0.4, Absolute Neuts (auto) 9.3 H, Absolute Lymphs (auto) 0.89, Nucleated RBC % 0 01/14/22 04:33: Sodium 138, Potassium 4.5, Chloride 111 H, Carbon Dioxide 22.0, Anion Gap 5, BUN 58 H, Creatinine 2.54 H, Estim Creat Clear Calc 23.15, Est GFR (MDRD) Af Amer 25 L, Est GFR (MDRD) Non-Af 21 L, BUN/Creatinine Ratio 22.8 H, Glucose 156 H, Calcium 8.0 L 01/14/22 06:09: POC Glucose 158 H Micro: Microbiology 01/08/22 Unknown Wound - Right Foot Gram Stain - Final 01/08/22 Unknown Wound - Right Foot Wound Culture - Final Staphylococcus aureus Streptococcus sanguinis 01/08/22 Unknown Wound - Right Foot Anaerobic Culture - Final Prevotella bivia 01/08/22 Unknown Wound Abcess - Right Foot Gram Stain - Final 01/08/22 Unknown Wound Abcess - Right Foot Wound Culture - Final Staphylococcus aureus Streptococcus sanguinis 01/08/22 Unknown Wound Abcess - Right Foot Anaerobic Culture - Final Prevotella bivia 01/08/22 12:14 Blood Culture (Wb) - Anticubital Left Blood Culture - Final No growth in 5 days. 01/08/22 Unknown Wound - Right Foot Gram Stain - Final 01/08/22 Unknown Wound - Right Foot Wound Culture - Final Staphylococcus aureus Streptococcus sanguinis 01/08/22 Unknown Wound - Right Foot Anaerobic Culture - Final No anaerobic bacteria isolated. 01/08/22 Unknown Wound - Right Foot Gram Stain - Final 01/08/22 Unknown Wound - Right Foot Wound Culture - Final Staphylococcus aureus Streptococcus sanguinis 01/08/22 Unknown Wound - Right Foot Anaerobic Culture - Final Anaerobic cocci 01/12/22 14:30 Nasal Secretion SARS-CoV-2 Antigen (Rapid) - Final 01/07/22 10:23 Blood Culture (Wb) - Left Hand Blood Culture - Final No growth in 5 days. 01/06/22 12:30 Blood Culture (Wb) - Right Hand Blood Culture - Final Staphylococcus aureus 01/05/22 01:15 Wound - Left Foot Gram Stain - Final 01/05/22 01:15 Wound - Left Foot Wound Culture - Final Staphylococcus aureus Enterobacter cloacae complex Streptococcus sanguinis 01/05/22 01:15 Wound - Right Foot Gram Stain - Final 01/05/22 01:15 Wound - Right Foot Wound Culture - Final Staphylococcus aureus Pseudomonas aeroginosa Enterobacter cloacae complex 01/07/22 03:55 Stool Stool Occult Blood (MIKE) - Final 01/05/22 00:25 Urine Catheter - Catheter Urine Culture - Final Culture exhibits no growth. 01/05/22 01:00 Blood Culture (Wb) - Left Hand Bacteria Detection (PCR) - Final Staphylococcus aureus 01/05/22 01:00 Blood Culture (Wb) - Left Hand Blood Culture - Final Staphylococcus aureus 01/05/22 00:45 Blood Culture (Wb) - Arm Left Blood Culture - Final Staphylococcus aureus 01/05/22 02:23 Nasal Secretion SARS-CoV-2 & FLU Antigen (Rapid) - Final Physical Exam Narrative Alert awake oriented x 3 no JVD s1s2 no murmurs lungs clear anteriorly abdomen soft, non-tender MYLA wrap b/l LE Assessment & Plan Assessment/Plan (1) FELI (acute kidney injury): PLAN: - Nonoliguric FELI is due to ATN from hypotension, infection. Patient is nonoliguric. -Serum creatinine was 2.9 mg/dL on admission and peaked to 3.85 mg/dL on 01/09/2022. Overall renal function is stable with improvement, today serum creatinine 2.54 mg/dL -The patient is not hyperkalemic, overtly volume overloaded, or severely acidotic. -There is no need for kidney replacement therapy at this point. -Patient in nonoliguric, has good urine output - bps were low but have improved, now on Coreg and Imdur. Coreg dose increased yesterday (2) Chronic kidney disease, stage 3b: PLAN: -The patient has CKD stage IIIb with baseline creatinine around 1.8- 2.0mg/dL. -There has been fluctuations of renal function over the last several years. -The patient has significant proteinuria likely related to diabetic nephropathy. - bacteremia/bilateral leg cellulitis/chronic ulcers s/p I&D. On cefepime - ok for discharge per renal - possible discharge to ECF today, patient will need nephrology follow-up. D/w discharge team. Patient to have follow up with Dr. Mancilla for nephrology care. Encouraged patient to follow up with Dr. Mancilla.
--- NOTE | 2022-01-14 10:18 | CASEMGMT ---
Addendum entered by Verito Abreu 01/14/22 11:52: Social Work VM received from Cassandra stating she talked to [facility] office and pt's case is still showing as denied. Phone call to Lexie Miles, security and compliance project manager who contacted [facility] directly and received an authorization number. [id number]. LUCRETIA called Cassandra at [facility] and provided authorization number and requested they accept pt. Cassandra states she will call [facility] and confirm and then get back to this worker. Pt cannot be accepted until written information obtained. LUCRETIA to continue to follow. ERIN Masters Original Note: Social Work Phone call placed to Cassandra at [facility] ([phone]) and discussed insurance issue. Cassandra states she checked with [facility] insurance yesterday at 2pm and case was still marked as denied. Cassandra states a new precert should not be started at this will confuse things. Cassandra stating she will reach back out to [facility] at this time to try to resolve issue and call the worker back. LUCRETIA will await return call from Cassandra. ERIN Masters
--- NOTE | 2022-01-14 11:49 | CASEMGMT ---
This KELSIE IRELAND contacted Vivian Harrison with [facility] precertification. Vivian Harrison verified that peer to peer was conducted on 01/11 and SNF level of care was approved thru 01/18. Approval #[id number]. Vivian Harrison to contact her colleague Meera regarding delay in communicating this approval. Gus Aleman RN CM
[2022-01-14 12:10] LABS: Bedside Glucose 153 mg/dL (74-106)
--- NOTE | 2022-01-14 15:32 | DS.PCM_ITS ---
Providers Date of Admission: 01/06/22 Primary Care Physician: Dr. 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 Routine Comment: Reason for Consult:: Bilateral wound on plantar side of pain 01/06/22 07:15 Consult: Podiatry Routine Consulting Provider: Kayden Gann Reason for Consult: bilateral foot wounds EMERGENT Consult: No MD Notified: Yes Date Notified: 01/06/22 Time Notified: 09:41 Method of Notification: Verbal 01/06/22 10:45 Consult: Infectious Disease Routine Consulting Provider: Kike Tello Reason for Consult: Bacteremia EMERGENT Consult: No Notified: Yes Date Notified: 01/06/22 Time Notified: 11:38 Method of Notification: Text 01/06/22 11:13 Consult: Nephrology Routine Consulting Provider: Angel Joel Reason for Consult: FELI EMERGENT Consult: No Notified: Yes Date Notified: 01/06/22 Time Notified: 11:44 Method of Notification: Answering Service 01/07/22 07:54 Consult: Orthopedics Routine Consulting Provider: Homero Cleary Reason for Consult: Disc herniation EMERGENT Consult: No Notified: Yes Date Notified: 01/07/22 Time Notified: 07:55 Method of Notification: Verbal Reason For Visit: ACUTE GASTROENTERITIS Diagnosis Discharge Diagnosis (1) FELI (acute kidney injury): Status: Acute Code(s): N17.9 - Acute kidney failure, unspecified (2) Chronic kidney disease, stage 3b: Status: Acute Code(s): N18.32 - Chronic kidney disease, stage 3b Medications at Discharge Home Medications atorvastatin 80 mg tablet 80 mg PO QHS #90 tablet 11/30/19 pramipexole 1.5 mg PO BID 09/12/20 isosorbide mononitrate 30 mg PO DAILY 03/03/21 oxycodone 5 mg PO TID 07/07/21 paroxetine HCl 20 mg PO QHS 07/07/21 bupropion HCl 150 mg PO.IVFORM DAILY 09/02/21 clopidogrel 75 mg PO DAILY 10/25/21 Lantus Solostar U-100 Insulin 30 unit SUBCUT DAILY 11/16/21 hydroxyzine HCl 25 mg PO DAILY 11/16/21 insulin lispro [Humalog KwikPen Insulin] 15 unit SUBCUT TIDCM 11/16/21 cyclobenzaprine 5 mg PO QHS #0 tab 12/23/21 gabapentin 300 mg BID 12/23/21 melatonin 10 mg PO QHS 01/05/22 carvedilol 3.125 mg PO BID #60 tab 01/12/22 cefepime 1 g IV Q24 #38 ea 01/12/22 Hospital Course Operations None Procedures None Summary of Care Provided Minutes Spent on Discharge: 45 Hospital Course: Patient is a 56 y/o female with a PMh as outlined who was in via the ED on 01/05/2022 with a complaint of bilateral lower extremity swelling worse on the right than the left. Swelling had been there for about 3 days prior to admission with associated pain and erythema of the right foot. She was admitted and managed for cellulitis of the lower extremities. Duplex of the lower extremities was negative for any DVT. She was started on IV cefazolin and blood cultures were ordered. Of note she was also treated for FELI on CKD stage IIIb. She was therefore hydrated with fluids. Blood cultures were positive for staph aureus and the source was suspected to be the bilateral foot infection. Antibiotics were broadened from IV cefazolin to IV cefepime. She had 2D echo which showed EF of 55% with indeterminate diastolic function and no regional wall motion abnormalities noted and no evidence of any infective endocarditis. ID was also consulted. Nephrology was also consulted on account of FELI on CKD stage IV. He had right foot debridement on for right foot ulcer. She also had a bone biopsy of her right foot which showed evidence of osteomyelitis with cultures growing Enterobacter and Pseudomonas. she remained stable and was di scharged to her SNF on 01/14/2022. Per ID recommendations, patient was continued on IV cefazolin till January 21, 2020. Of note, hospital course was complicated by worsening back pain which was chronic for patient. She had an MRI of her back which showed spinal stenosis and spine surgery was consulted. Spine surgery deemed as a high risk surgical candidate and recommended conservative management. Patient remained stable and was discharged on 01/14/2022 and is follow-up with her primary care doctor and ID as well as podiatry. Patient seen and examined prior to discharge. She had no active complaints and had an uneventful night. Review of symptoms otherwise negative. Labs and vitals reviewed. Home medication reviewed and reconciled. Physical Exam Const alert, oriented x3 and no apparent distress General Appearance: cooperative, comfortable and well kempt Orientation / Consciousness: awake Exam Limitations: no limitations HEENT normocephalic, head/scalp atraumatic and hearing grossly normal bilaterally Eyes PERRL, EOMs intact bilaterally and conjunctivae normal Neck no lymphadenopathy and supple Resp normal respiratory effort, no retractions, no use of accessory muscles and clear to auscultation bilaterally Cardio regular rate, regular rhythm, S1 normal heart sound, S2 normal heart sound and no murmurs GI normal to inspection, nondistended, normoactive bowel sounds, soft to palpation, non-tender and non-distended Extremity Extremity Narrative: both feet wrapped in bandage. Skin Skin Narrative: as under extremities Neuro oriented x3, CN's II-XII intact bilaterally and moves all extremities Sensorium / Orientation: awake and alert Psych affect normal Weight / BMI Weight Weight: 209 lb 14.081 oz Body Mass Index (BMI) 33.8 ABG / Lab / Microbiology Data Result Diagrams: 01/14/22 04:33 01/14/22 04:33 Laboratory: Laboratory Results - last 24 hr 01/13/22 16:15: POC Glucose 165 H 01/13/22 22:27: POC Glucose 208 H 01/14/22 04:33: WBC 11.4 H, RBC 3.17 L, Hgb 8.9 L, Hct 28.2 L, MCV 89.0, MCH 28.1, MCHC 31.6 L, RDW Std Deviation 51.0 H, RDW Coeff of Fior 15.8 H, Plt Count 326, MPV 10.1, Immature Gran % (Auto) 1.900 H, Neut % (Auto) 81.6 H, Lymph % (Auto) 7.8 L, [place] % (Auto) 5.1, Eos % (Auto) 3.2, Baso % (Auto) 0.4, Absolute Neuts (auto) 9.3 H, Absolute Lymphs (auto) 0.89, Nucleated RBC % 0 01/14/22 04:33: Sodium 138, Potassium 4.5, Chloride 111 H, Carbon Dioxide 22.0, Anion Gap 5, BUN 58 H, Creatinine 2.54 H, Estim Creat Clear Calc 23.15, Est GFR (MDRD) Af Amer 25 L, Est GFR (MDRD) Non-Af 21 L, BUN/Creatinine Ratio 22.8 H, Glucose 156 H, Calcium 8.0 L 01/14/22 06:09: POC Glucose 158 H 01/14/22 11:58: POC Glucose 153 H Microbiology: Microbiology 01/08/22 Unknown Wound - Right Foot Gram Stain - Final 01/08/22 Unknown Wound - Right Foot Wound Culture - Final Staphylococcus aureus Streptococcus sanguinis 01/08/22 Unknown Wound - Right Foot Anaerobic Culture - Final Prevotella bivia 01/08/22 Unknown Wound Abcess - Right Foot Gram Stain - Final 01/08/22 Unknown Wound Abcess - Right Foot Wound Culture - Final Staphylococcus aureus Streptococcus sanguinis 01/08/22 Unknown Wound Abcess - Right Foot Anaerobic Culture - Final Prevotella bivia 01/08/22 12:14 Blood Culture (Wb) - Anticubital Left Blood Culture - Final No growth in 5 days. 01/08/22 Unknown Wound - Right Foot Gram Stain - Final 01/08/22 Unknown Wound - Right Foot Wound Culture - Final Staphylococcus aureus Streptococcus sanguinis 01/08/22 Unknown Wound - Right Foot Anaerobic Culture - Final No anaerobic bacteria isolated. 01/08/22 Unknown Wound - Right Foot Gram Stain - Final 01/08/22 Unknown Wound - Right Foot Wound Culture - Final Staphylococcus aureus Streptococcus sanguinis 01/08/22 Unknown Wound - Right Foot Anaerobic Culture - Final Anaerobic cocci 01/12/22 14:30 Nasal Secretion SARS-CoV-2 Antigen (Rapid) - Final 01/07/22 10:23 Blood Culture (Wb) - Left Hand Blood Culture - Final No growth in 5 days. 01/06/22 12:30 Blood Culture (Wb) - Right Hand Blood Culture - Final Staphylococcus aureus 01/05/22 01:15 Wound - Left Foot Gram Stain - Final 01/05/22 01:15 Wound - Left Foot Wound Culture - Final Staphylococcus aureus Enterobacter cloacae complex Streptococcus sanguinis 01/05/22 01:15 Wound - Right Foot Gram Stain - Final 01/05/22 01:15 Wound - Right Foot Wound Culture - Final Staphylococcus aureus Pseudomonas aeroginosa Enterobacter cloacae complex 01/07/22 03:55 Stool Stool Occult Blood (MIKE) - Final 01/05/22 00:25 Urine Catheter - Catheter Urine Culture - Final Culture exhibits no growth. 01/05/22 01:00 Blood Culture (Wb) - Left Hand Bacteria Detection (PCR) - Final Staphylococcus aureus 01/05/22 01:00 Blood Culture (Wb) - Left Hand Blood Culture - Final Staphylococcus aureus 01/05/22 00:45 Blood Culture (Wb) - Arm Left Blood Culture - Final Staphylococcus aureus 01/05/22 02:23 Nasal Secretion SARS-CoV-2 & FLU Antigen (Rapid) - Final D/C Instructions Discharge Diet: Low fat / Low cholesterol Discharge Activity: Return to Normal Activity Weight Bearing Status: Weight bearing as tolerated Call your doctor if you observe: Fever of 101 or Higher, Shortness of breath and Uncontrolled pain Meaningful Use Info Meaningful Use Diagnoses (Choose all that apply): None applicable Discharge Plan Admission Admit Date/Time: 01/06/22 12:09 Primary Reason for Your Visit: Cellulitis and osteomyelitis of lower extremities Attending Provider: Rachel Okeefe Primary Care Provider: Raúl Eric Consulting Providers: Kayden Gann ; Kike Tello ; Angel Joel ; Homero Cleary Instructions Additional Instructions / Restrictions: * Follow up with your primary care provider or mechanical engineering advisor in regards to adjusting your home diabetic regimen and blood sugars. They were erratic in the hospital (high and low), however your hemoglobin A1C was uncontrolled at 9.1. * Obtain weekly CBC's & BMP's to monitor your blood work. Discharge Orders/Prescriptions Prescriptions: New carvedilol 3.125 mg Tablet 3.125 mg PO BID Qty: 60 RF: 0 cefepime 1 gram Recon Soln 1 g IV Q24 Qty: 38 RF: 0 Continued atorvastatin 80 mg tablet 80 mg PO QHS Qty: 90 RF: 3 pramipexole 1 MG tablet 1.5 mg PO BID RF: 0 isosorbide mononitrate 30 mg tablet extended release 24 hr 30 mg PO DAILY RF: 0 paroxetine HCl 20 mg tablet 20 mg PO QHS RF: 0 oxycodone 5 mg tablet 5 mg PO TID RF: 0 bupropion HCl 150 mg PO.IVFORM DAILY RF: 0 clopidogrel 75 MG tablet 75 mg PO DAILY RF: 0 hydroxyzine HCl 25 mg Tablet 25 mg PO DAILY RF: 0 insulin lispro [Humalog KwikPen Insulin] 100 unit/mL insulin pen 15 unit subcut TIDCM RF: 0 Lantus Solostar U-100 Insulin 100 unit/mL (3 mL) insulin pen 30 unit SUBCUT DAILY RF: 0 gabapentin 300 mg capsule 300 mg BID RF: 0 cyclobenzaprine 5 mg Tablet 5 mg PO QHS Qty: 0 RF: 0 melatonin 10 mg Tablet 10 mg PO QHS RF: 0 Discontinued carvedilol [Coreg] 6.25 mg tablet 6.25 mg PO BID Qty: 60 RF: 0 Other Ambulatory Orders: Basic Metabolic Profile (BMP) (Routine) Timeframe: 1 Week Facility: [facility] - Location: Laboratory Ordered By: Zach GRANADO CBC W/Diff, Automated (Routine) Timeframe: 1 Week Facility: [facility] - Location: Laboratory Ordered By: Zach GRANADO Referrals / Follow Up: Margie Mancilla DO [STAFF PHYSICIAN] - Within 1 Month Raúl Eric MD [Primary Care Provider] - Within 2 Weeks Disposition Disposition (needs filled in before D/C Order can be placed): Custodial Facility Charges/Coding Visit Charges Inpatient E&M: [id number] Disch Hosp
[2022-01-14 16:31] LABS: Bedside Glucose 110 mg/dL (74-106)
--- NOTE | 2022-01-14 16:51 | CASEMGMT ---
Social Work Call received from Cassie at [facility] who states insurance auth has been obtained and pt can discharge to [facility] today. Physician notified and agreeable to discharge. [id number] convalescent form completed and faxed along with orders to [facility]. 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 Pt updated and agreeable to discharge. SW placed call to pt dgt and number is disconnected. SW informed pt and pt does not have a working number for dgt. SW assisted pt in sending dgt a facebook message per pt requested as this is how they communicate. Nurse updated on discharge time. Plan: [facility], skilled level of care under convalescent stay. ERIN Masters
== END 2022-01-14 19:10 | disposition skilled nursing facility (03) | DRG 623 ==
LOC: ED 01-05 03:10 → PCU 01-05 05:51
PROVIDERS: Internal Medicine; Nurse Practitioner Adult Health; Orthopaedic Surgery; Physician Assistant; Student in an Organized Health Care Education/Training Program; Admitting Provider Hospitalist; Emergency Provider Emergency Medicine; PCP Family Medicine; Visit Provider Student in an Organized Health Care Education/Training Program
PROC: 0QBN0ZZ Excision of Right Metatarsal, Open Approach (ICD-10-PCS; principal; 2022-01-08 13:50)
DX: E11.69 Type 2 diabetes mellitus with other specified complication (principal); I13.0 Hypertensive heart and chronic kidney disease with heart failure and stage 1 through stage 4 chronic kidney disease, or unspecified chronic kidney disease; R78.81 Bacteremia; E87.1 Hypo-osmolality and hyponatremia; I50.30 Unspecified diastolic (congestive) heart failure; M86.171 Other acute osteomyelitis, right ankle and foot; F11.20 Opioid dependence, uncomplicated; L03.115 Cellulitis of right lower limb; L02.611 Cutaneous abscess of right foot; L03.116 Cellulitis of left lower limb; N17.0 Acute kidney failure with tubular necrosis; E11.610 Type 2 diabetes mellitus with diabetic neuropathic arthropathy; D63.8 Anemia in other chronic diseases classified elsewhere; E88.09 Other disorders of plasma-protein metabolism, not elsewhere classified; E11.42 Type 2 diabetes mellitus with diabetic polyneuropathy; I95.9 Hypotension, unspecified; E11.621 Type 2 diabetes mellitus with foot ulcer; L97.512 Non-pressure chronic 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 layer exposed; E11.22 Type 2 diabetes mellitus with diabetic chronic kidney disease; L97.522 Non-pressure chronic ulcer of other part of left foot with fat layer exposed; Z79.4 Long term (current) use of insulin; L97.513 Non-pressure chronic ulcer of other part of right foot with necrosis of muscle; N18.32 Chronic kidney disease, stage 3b; D53.9 Nutritional anemia, unspecified; I25.10 Atherosclerotic heart disease of native coronary artery without angina pectoris; E78.5 Hyperlipidemia, unspecified; I25.5 Ischemic cardiomyopathy; E86.1 Hypovolemia; M51.16 Intervertebral disc disorders with radiculopathy, lumbar region; M48.00 Spinal stenosis, site unspecified; D50.9 Iron deficiency anemia, unspecified; F41.9 Anxiety disorder, unspecified; K21.9 Gastro-esophageal reflux disease without esophagitis; I25.2 Old myocardial infarction; M43.16 Spondylolisthesis, lumbar region; B95.2 Enterococcus as the cause of diseases classified elsewhere; B96.5 Pseudomonas (aeruginosa) (mallei) (pseudomallei) as the cause of diseases classified elsewhere; B95.61 Methicillin susceptible Staphylococcus aureus infection as the cause of diseases classified elsewhere; R44.1 Visual hallucinations; Z79.02 Long term (current) use of antithrombotics/antiplatelets; R80.9 Proteinuria, unspecified; G89.29 Other chronic pain; Z20.822 Contact with and (suspected) exposure to COVID-19; Z79.899 Other long term (current) drug therapy; Z95.5 Presence of coronary angioplasty implant and graft; F32.A Depression, unspecified
CPT/HCPCS: 36415; 36569; 71045; 72148; 73620; 73630; 73718; 76000; 80048; 80053; 80069; 80307; 81001; 82274; 82728; 82962; 83036; 83540; 83550; 83605; 83880; 83935; 84300; 85014; 85018; 85025; 85652; 86140; 86850; 86900; 86901; 86920; 86922; 87015; 87040; 87070; 87075; 87077; 87086; 87102; 87116; 87149; 87184; 87186; 87205; 87206; 87426; 87428; 88304; 88305; 88311; 93005; 93306; 93970; 97110; 97116; 97162; 97166; 97530; 97535; 97802; 99283; J7030; J7040; J7050; P9016; Q9957; A4216; J1940; J2405; J2916

== ENCOUNTER → 2022-01-15 | Outpatient (REF) | payer SELFPAY ==
[2018-09-21 13:23] VITALS: BMI 29.3
[2022-01-15 08:56] LABS: Absolute Neutrophil Count 9.2 X10^3/uL (2.0-7.7); Basophil# 0.05 X10^3/uL; Basophil% 0.4 % (0-1); Eosinophil# 0.35 X10^3/uL; Hematocrit 27.7 % (37-47); Hemoglobin 8.7 g/dL (12.0-15.0); Mean Corp Hgb Conc 31.4 g/dL (32-36); Mean Corpuscular Hgb 28.4 pg (27.0-32.0); Mean Corpuscular Volume 90.5 fL (81-99); Mean Platelet Vol. 10.6 fl (6.2-12.0); Monocyte# 0.67 X10^3/uL; Monocyte% 5.6 % (0-10); NRBC Flagged by Analyzer 0 % (0-5); Neutrophil # 9.24 X10^3/uL (2.7-7.7); Neutrophil % 77.9 % (47-70); Platelet Count 348 K/mm3 (150-450); RBC Distribution Width CV 15.9 % (11.6-14.6); Red Blood Count 3.06 M/mm3 (4.2-5.4); White Blood Count 11.9 K/mm3 (4.4-11.0)
[2022-01-15 09:22] LABS: Hemoglobin A1c 8.5 % (3.8-5.6)
[2022-01-15 09:24] LABS: Anion Gap 3 (5-15); BUN 49 mg/dL (7-18); BUN/Creat Ratio 21.5 RATIO (10-20); Calcium,Total 7.7 mg/dL (8.5-10.1); Chloride 112 mmol/L (98-107); Cholesterol 134 mg/dL (200); Creatinine, Serum 2.28 mg/dL (0.55-1.02); EST Glomerular Filtration Rate 24 mL/min (>60); Est Glom Filt Rate - Afr Amer 28 mL/min (>60); Glucose 145 mg/dL (74-106); High Density Lipoprotein 32 mg/dL; Potassium 4.4 mmol/L (3.5-5.1); Sodium Level 139 mmol/L (136-145); Triglycerides 119 mg/dL; Very Low Density Lipoprotein 24 mg/dL (5-40)
[2022-01-15 09:35] LABS: Vitamin B12 1715 pg/mL (211-911); Vitamin D,25 Hydroxy 18.1 ng/mL
== END | disposition home or self-care (01) ==
LOC: OLS.SW1020 05:00
PROVIDERS: PCP Family Medicine; Visit Provider Internal Medicine
DX: R78.81 Bacteremia (principal); E11.22 Type 2 diabetes mellitus with diabetic chronic kidney disease; I12.9 Hypertensive chronic kidney disease with stage 1 through stage 4 chronic kidney disease, or unspecified chronic kidney disease; N18.9 Chronic kidney disease, unspecified
CPT/HCPCS: 36415; 80048; 80061; 82306; 82607; 83036; 84443; 85025; 86140

== ENCOUNTER → 2022-01-29 | Outpatient (REF) | payer MEDICARE, MEDICAID, SELFPAY ==
[2018-09-21 13:23] VITALS: BMI 29.3
[2022-01-29 07:32] LABS: Absolute Lymphocyte Count 0.94 X10^3/uL (0.83-4.51); Absolute Neutrophil Count 4.9 X10^3/uL (2.0-7.7); Basophil# 0.07 X10^3/uL; Basophil% 1.1 % (0-1); Eosinophil# 0.25 X10^3/uL; Eosinophils% 3.8 % (0-5); Hemoglobin 8.3 g/dL (12.0-15.0); Lymphocyte # 0.94 X10^3/ul (0.83-4.51); Lymphocyte % 14.3 % (19-41); Mean Corp Hgb Conc 30.7 g/dL (32-36); Mean Corpuscular Hgb 27.9 pg (27.0-32.0); Mean Corpuscular Volume 90.9 fL (81-99); Mean Platelet Vol. 10.7 fl (6.2-12.0); Monocyte# 0.37 X10^3/uL; Monocyte% 5.6 % (0-10); NRBC Flagged by Analyzer 0 % (0-5); Neutrophil # 4.93 X10^3/uL (2.7-7.7); Neutrophil % 74.9 % (47-70); Platelet Count 289 K/mm3 (150-450); RBC Distribution Width CV 15.6 % (11.6-14.6); Red Blood Count 2.97 M/mm3 (4.2-5.4); White Blood Count 6.6 K/mm3 (4.4-11.0)
[2022-01-29 07:49] LABS: Anion Gap 4 (5-15); BUN 31 mg/dL (7-18); BUN/Creat Ratio 15.1 RATIO (10-20); Calcium,Total 8.1 mg/dL (8.5-10.1); Chloride 112 mmol/L (98-107); Creatinine, Serum 2.05 mg/dL (0.55-1.02); EST Glomerular Filtration Rate 27 mL/min (>60); Est Glom Filt Rate - Afr Amer 32 mL/min (>60); Glucose 41 mg/dL (74-106); Potassium 4.4 mmol/L (3.5-5.1); Sodium Level 140 mmol/L (136-145)
== END | disposition home or self-care (01) ==
LOC: OLS.SW500 05:00
PROVIDERS: PCP Family Medicine; Visit Provider Family Medicine
DX: E11.42 Type 2 diabetes mellitus with diabetic polyneuropathy (principal); R78.81 Bacteremia; I12.9 Hypertensive chronic kidney disease with stage 1 through stage 4 chronic kidney disease, or unspecified chronic kidney disease; N18.9 Chronic kidney disease, unspecified
CPT/HCPCS: 36415; 80048; 85025; 86140

== ENCOUNTER 2022-02-04 21:25 | Emergency (ER) | payer MEDICARE, MEDICAID, SELFPAY ==
[2018-09-21 13:23] VITALS: BMI 29.3
[2022-02-04 21:28] VITALS: TEMP 37; BMI 31.2
[2022-02-04 21:31] VITALS: BP 165/93; PULSE 111; RESP 15; O2SAT 94
--- NOTE | 2022-02-04 22:11 | CT_ITS ---
STUDY: CT BRAIN WITHOUT CONTRAST REASON FOR EXAM: Female, 56 years old. altered mental status,hallucinations,delirum,combative -- hx:tia,htn,hld,mi,diabetes,cad,chf,ckd stage 3,takes aspirin and plavix RADIATION DOSAGE (If Supplied By Facility): CTDIvol = ( 44.99 ) mGy, DLP = ( 779.24 ) mGycm TECHNIQUE: Transaxial CT imaging of the brain was performed without administration of intravenous contrast material. Individualized dose optimization techniques were used for this CT. COMPARISON: No relevant priors. FINDINGS: Normal soft tissue structures. Normal calvarium. Normal size ventricles and extra-axial spaces for the patient''s age. Normal white matter tracts of the cerebral hemispheres. Normal basal ganglia and thalami. Normal brainstem. Normal cerebellum. There is no intracranial hemorrhage. There are no findings of an acute ischemic infarction. Normal visualized paranasal sinuses. CT/Brain/Head without Contrast IMPRESSION: Normal unenhanced CT scan of the brain. Electronically Signed: Eddie Roy MD at 23:18 EDT ,
--- NOTE | 2022-02-04 22:11 | EKG12_ITS ---
Test Reason : MENTAL HEALTH Blood Pressure : / mmHG Vent. Rate : 109 BPM Atrial Rate : 109 BPM P-R Int : 150 ms QRS Dur : 094 ms QT Int : 368 ms P-R-T Axes : 059 008 107 degrees QTc Int : 495 ms Sinus tachycardia Nonspecific ST and T wave abnormality Abnormal ECG Confirmed by ELEN DELVALLE, FELTON ([id number]), rewrite editor HARINI PHAM ([id number]) on 02/08/2022 11:35:09 AM Referred By: DR VEGA Confirmed By:FELTON MYRICK MD
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
[2022-02-04 22:26] LABS: Bacteria 0 SEEN /hpf (None Seen); Mucous, Urine 0 SEEN /hpf (<or=2+)
[2022-02-04 22:36] VITALS: RESP 20; O2SAT 95
--- NOTE | 2022-02-04 22:36 | NURSING ---
PT AMBULATING IN ROOM, ASKING WHERE SHE IS AT AND WHAT STAFF IS DOING. WOULD NOT ALLOW THIS NURSE TO DRAW LABS OR TAKE VITALS. SECOND NURSE AND CHARGE NURSE ASSISTED. PT ALLOW SECOND NURSE TO DRAW LAB WORK. PT AMBULATING INTO HALLWAY NOT STAYING IN ROOM, PT MOVED TO ROOM 4 FOR SAFETY. RESTING IN CHAIR AT THIS TIME.
[2022-02-04 22:41] LABS: Absolute Lymphocyte Count 0.77 X10^3/uL (0.83-4.51); Absolute Neutrophil Count 6.2 X10^3/uL (2.0-7.7); Basophil# 0.06 X10^3/uL; Basophil% 0.8 % (0-1); Eosinophil# 0.25 X10^3/uL; Eosinophils% 3.2 % (0-5); Hematocrit 31.1 % (37-47); Hemoglobin 9.5 g/dL (12.0-15.0); Lymphocyte # 0.77 X10^3/ul (0.83-4.51); Mean Corp Hgb Conc 30.5 g/dL (32-36); Mean Corpuscular Hgb 27.6 pg (27.0-32.0); Mean Corpuscular Volume 90.4 fL (81-99); Mean Platelet Vol. 9.8 fl (6.2-12.0); Monocyte# 0.36 X10^3/uL; Monocyte% 4.7 % (0-10); NRBC Flagged by Analyzer 0 % (0-5); Neutrophil # 6.24 X10^3/uL (2.7-7.7); Neutrophil % 80.9 % (47-70); Platelet Count 366 K/mm3 (150-450); RBC Distribution Width CV 16.3 % (11.6-14.6); RBC Distribution Width SD 53.1 fl (35.1-43.9); Red Blood Count 3.44 M/mm3 (4.2-5.4); White Blood Count 7.7 K/mm3 (4.4-11.0)
[2022-02-04 22:42] LABS: Color, Urine Yellow (Yellow); Glucose, Dipstick 250 mg/dl (Normal); Ketone-Dipstick 5 mg/dl (Negative); Leukocyte Esterase-Dipstick 25 /ul (Negative); Nitrite-Dipstick Negative (Negative); Occult Blood-Urine 50 /ul (Negative); Protein-Dipstick 500 mg/dl (Negative); Specific Gravity, Urine 1.015 (1.002-1.030); Urine Bilirubin Dipstick Negative (Negative); Urine Clarity Clear (Clear); Urine Urobilinogen Normal (Normal)
[2022-02-04 22:44] LABS: Amphetamine Urine VISTA NEGATIVE (<1000 ng/mL); Barbiturate Urine VISTA NEGATIVE (< 200 ng/mL); Benzodiazepine Urine VISTA NEGATIVE (< 200 ng/mL); Cocaine Urine VISTA NEGATIVE (< 300 ng/mL); Ecstacy Urine VISTA POSITIVE (< 500 ng/mL); Methadone Urine VISTA NEGATIVE (< 300 ng/mL); PCP Urine VISTA NEGATIVE (< 25 ng/mL); THC Urine VISTA NEGATIVE (< 50 ng/mL); Vista UDS pH Range 5
--- NOTE | 2022-02-04 22:45 | RAD_ITS ---
STUDY: X-RAY CHEST REASON FOR EXAM: Female, 56 years old. altered mental status TECHNIQUE: AP upright COMPARISON: None. FINDINGS: The lungs are clear and expanded. There is no demonstrated pleural abnormality. Normal size heart. Normal mediastinum and elvie. Normal visualized pulmonary arteries. Normal visualized aortic arch and descending thoracic aorta. Normal visualized thoracic spine. Normal visualized ribs, clavicles, and shoulders. There is no demonstrated abnormality of the visualized soft tissue structures of the upper abdomen. RAD/Chest 1 View (Portable) IMPRESSION: Normal x-ray examination of the chest. Electronically Signed: Eddie Roy MD at 23:33 EDT ,
[2022-02-04 23:00] VITALS: PULSE 110; RESP 18; O2SAT 98
[2022-02-04 23:00] LABS: ALB/GLOB Ratio 0.4 RATIO (0.9-2.4); AST(SGOT) 25 U/L (15-37); Alanine Aminotransfer ALT/SGPT 24 U/L (13-56); Albumin, Serum 1.9 g/dL (3.2-5.0); Alkaline Phosphatase 410 U/L (45-117); Anion Gap 6 (5-15); BUN 28 mg/dL (7-18); BUN/Creat Ratio 12.1 RATIO (10-20); Calcium,Total 7.8 mg/dL (8.5-10.1); Chloride 111 mmol/L (98-107); Creatinine, Serum 2.32 mg/dL (0.55-1.02); EST Glomerular Filtration Rate 23 mL/min (>60); Est Glom Filt Rate - Afr Amer 28 mL/min (>60); Estimated Creatinine Clearance 25.35 ml/min; Globulin 5.4 g/dL (2.2-4.2); Glucose 289 mg/dL (74-106); Lipase 68 U/L (73-393); Potassium 4.5 mmol/L (3.5-5.1); Protein, Total 7.3 g/dL (6.4-8.2); Sodium Level 140 mmol/L (136-145); Troponin-I HS 17 pg/mL (3.0-54.0)
[2022-02-04 23:00] LABS: White Blood Cells 5-10 SEEN /hpf (0-5)
[2022-02-04 23:01] LABS: Red Blood Cells-Urine 0-5 SEEN /hpf (0-5); Squamous Epithelial Cells - UA 0-5 SEEN /hpf (5-10)
--- NOTE | 2022-02-05 01:09 | NURSING ---
report called to Trisha alvarenga at [facility].
== END 2022-02-05 05:29 | disposition home or self-care (01) ==
PROVIDERS: Emergency Provider Student in an Organized Health Care Education/Training Program; PCP Family Medicine; Visit Provider Student in an Organized Health Care Education/Training Program
DX: R41.0 Disorientation, unspecified (principal); E11.42 Type 2 diabetes mellitus with diabetic polyneuropathy; E11.22 Type 2 diabetes mellitus with diabetic chronic kidney disease; N18.4 Chronic kidney disease, stage 4 (severe); Z79.4 Long term (current) use of insulin; R44.3 Hallucinations, unspecified; I12.9 Hypertensive chronic kidney disease with stage 1 through stage 4 chronic kidney disease, or unspecified chronic kidney disease; I25.5 Ischemic cardiomyopathy; I25.10 Atherosclerotic heart disease of native coronary artery without angina pectoris; E78.5 Hyperlipidemia, unspecified; Z86.73 Personal history of transient ischemic attack (TIA), and cerebral infarction without residual deficits; E66.9 Obesity, unspecified; I25.2 Old myocardial infarction; Z79.02 Long term (current) use of antithrombotics/antiplatelets; Z79.899 Other long term (current) drug therapy; Z95.5 Presence of coronary angioplasty implant and graft
CPT/HCPCS: 36592; 70450; 71045; 80053; 80307; 81001; 82077; 82140; 83690; 84484; 85025; 93005; 99284; A4216

== ENCOUNTER 2022-02-05 17:43 | Emergency (ER) | payer MEDICARE, MEDICAID, SELFPAY ==
[2018-09-21 13:23] VITALS: BMI 29.3
[2022-02-05] VITALS (7 sets, daily range): BP systolic 173–190; BP diastolic 100–123; PULSE 74–95; RESP 18–95; TEMP 36.6; O2SAT 16–97; BMI 31.2
--- NOTE | 2022-02-05 18:03 | EDS_ITS ---
HPI <LOY Avina - Last Filed: 02/05/22 18:50> History of Present Illness Chief Complaint: Alt LOC Narrative Narrative: 56-year-old female with PMH of hyperlipidemia, diabetes, chronic kidney disease presents with hallucinations that started a few days ago. She lives at a group home and is a poor historian. She states she has been worried that people were going to kill her, specifically other group home residents. She is not sure why she thinks this. She said she was hiding scissors under her blanket in case someone came at her so she could defend herself. She denies suicidal or homicidal ideation. She states her daughter is supposed to be here and she heard people talking about her next door in the hospital. She states she has a history of anxiety and depression but no other psychiatric problems. She has no other complaints. PFS <LOY Avina - Last Filed: 02/05/22 18:50> [facility] Medical History Acquired varus deformity of left foot Acquired varus deformity of right foot Amputation foot, bilat Anemia due to chronic illness Anxiety and depression Atherosclerosis of [place] coronary artery of [place] heart without angina pectoris Back pain, chronic Bilateral edema of lower extremity Charcot's joint of right foot Chronic renal insufficiency Chronic ulcer of left foot with fat layer exposed Chronic ulcer of right foot with necrosis of muscle COVID-19 (08/28/21) Delayed wound healing Diabetes Diabetic foot ulcer associated with type 2 diabetes mellitus Diabetic infection of left foot Diabetic polyneuropathy Diabetic ulcer of right ankle Elevated troponin Essential (primary) hypertension GERD (gastroesophageal reflux disease) Hemoglobin A1c greater than 9.0% HLD (hyperlipidemia) Hyperparathyroidism, secondary renal Hypertension Iron deficiency anemia Ischemic cardiomyopathy Myocardial infarct Non-compliance Non-smoker Normocytic anemia NSTEMI (non-ST elevated myocardial infarction) (09/20/18) Obesity (BMI 30.0-34.9) Osteomyelitis of left foot RLS (restless legs syndrome) Stage 4 chronic kidney disease TIA (transient ischemic attack) 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 Ulcer of left foot with fat layer exposed Ulcer of left foot with muscle involvement without evidence of necrosis Ulcer of right lower extremity with fat layer exposed Home Medications atorvastatin 80 mg tablet 80 mg PO QHS #90 tablet 11/30/19 [Rx Last Taken 01/03/22] pramipexole 1.5 mg PO BID 09/12/20 [History Last Taken 01/03/22] isosorbide mononitrate 30 mg PO DAILY 03/03/21 [History Last Taken 01/04/22] oxycodone 5 mg PO TID 07/07/21 [History Last Taken 01/04/22] paroxetine HCl 20 mg PO QHS 07/07/21 [History Last Taken 01/04/22] clopidogrel 75 mg PO DAILY 10/25/21 [History Last Taken 01/04/22] Lantus Solostar U-100 Insulin 30 unit SUBCUT DAILY 11/16/21 [History Last Taken 01/04/22] hydroxyzine HCl 25 mg PO DAILY 11/16/21 [History Last Taken 01/04/22] insulin lispro [Humalog KwikPen Insulin] 5 unit SUBCUT LUNCH 11/16/21 [History Last Taken Unknown] cyclobenzaprine 5 mg PO QHS #0 tab 12/23/21 [Rx Last Taken 01/03/22] gabapentin 300 mg BID 12/23/21 [History Last Taken 01/04/22] melatonin 10 mg PO QHS 01/05/22 [History Last Taken 01/03/22] cefepime 1 g IV Q24 #38 ea 01/12/22 [Rx Last Taken Unknown] acetaminophen 650 mg PO Q4H PRN 02/04/22 [History Last Taken Unknown] bupropion HCl 150 mg PO DAILY 02/04/22 [History Last Taken Unknown] carvedilol 12.5 mg PO BID 02/04/22 [History Last Taken Unknown] hydroxyzine HCl 25 mg PO TID PRN 02/04/22 [History Last Taken Unknown] Allergy/AdvReac Type Severity Reaction Status Date / Time Penicillins Allergy swelling Verified 02/04/22 21:31 in throat vancomycin Allergy Itching Verified 02/04/22 21:31 metronidazole AdvReac Nausea Verified 02/04/22 21:31 oxycodone [From OxyContin] AdvReac Shortness Verified 02/04/22 21:31 of breath Family History Mother Diabetes CVA (cerebral vascular accident) Brother CAD (coronary artery disease) CABG X 3 Cancer testicular Diabetes Brother CAD (coronary artery disease) CABG X3 Diabetes Brother CAD (coronary artery disease) Stents Diabetes Sister CAD (coronary artery disease) CABG x 3 CVA (cerebral vascular accident) Diabetes Surgical History History of bilateral carpal tunnel release History of History of coronary artery stent placement (12/31/20) History of foot surgery History of rotator cuff surgery Social History household members: none number of children: 2 current occupational status: disabled Smoking Status: Never smoker alcohol intake: never substance use type: does not use caffeine: Yes Type: carbonated beverages Number of servings: 2 ROS <LOY Avina - Last Filed: 02/05/22 18:50> ROS ED ROS Narrative Constitutional: Negative for fever, chills, malaise. Eyes: Negative for visual change. ENT: Negative for sore throat, ear pain, rhinorrhea. CVS: Negative for palpitations, chest pain, syncope. Respiratory: Negative for shortness of breath, cough, orthopnea. GI: Negative for abdominal pain, nausea, vomiting, diarrhea, constipation, melena, hematochezia. : Negative for dysuria, hematuria or frequency. Neuro: Negative for headache, motor/sensory dysfunction. Skin: Negative for rash, abscess, or wound. Musc: Negative for joint pain, swelling, trauma. Heme: Negative for easy bruising, bleeding, lymphadenopathy. EXAM <LOY Avina - Last Filed: 02/05/22 18:50> Physical Exam Narrative Exam Narrative: CONST: Patient sitting in no acute distress. EYES: Normal inspection. ENT: Normal inspection, moist mucous membranes. NECK: Normal inspection. RESP: No respiratory distress, CTAB. CVS: Regular rate and rhythm, no murmur, no gallop. ABD: Soft and nontender, no guarding or rebound, nondistended, no hepatosplenomegaly. SKIN: Color normal, no rash, warm, dry, intact. EXTREMITIES: Normal appearance, no pedal edema. NEURO: Oriented to self, place, situation. PSYCH: Flat affect, became paranoid during discussion, tearful. Const Vital Signs: 02/05/22 17:44 02/05/22 19:10 Temperature 97.8 F Temperature Source Temporal Pulse Rate 95 93 Respiratory Rate 18 18 Blood Pressure 174/104 H 190/123 H Blood Pressure Mean 127 145 Pulse Ox 96 96 Oxygen Delivery Method Room Air Room Air <Dr. Gustavo Rivera DO - Last Filed: 02/05/22 19:34> Physical Exam Const Vital Signs: 02/05/22 17:44 02/05/22 19:10 Temperature 97.8 F Temperature Source Temporal Pulse Rate 95 93 Respiratory Rate 18 18 Blood Pressure 174/104 H 190/123 H Blood Pressure Mean 127 145 Pulse Ox 96 96 Oxygen Delivery Method Room Air Room Air MDM <LOY Avina - Last Filed: 02/05/22 18:50> MDM Lab Data Labs: Laboratory Results - last 24 hr 02/05/22 02/05/22 02/05/22 18:17 18:17 18:17 WBC 7.9 RBC 3.50 L Hgb 9.7 L Hct 31.1 L MCV 88.9 MCH 27.7 MCHC 31.2 L RDW Std Deviation 53.0 H RDW Coeff of Fior 16.5 H Plt Count 378 MPV 9.9 Immature Gran % (Auto) 0.400 Neut % (Auto) 77.5 H Lymph % (Auto) 13.5 L [place] % (Auto) 5.4 Eos % (Auto) 2.3 Baso % (Auto) 0.9 Absolute Neuts (auto) 6.1 Absolute Lymphs (auto) 1.07 Nucleated RBC % 0 Sodium 142 Potassium 4.5 Chloride 112 H Carbon Dioxide 24.0 Anion Gap 6 BUN 28 H Creatinine 2.08 H Estim Creat Clear Calc 28.27 Est GFR (MDRD) Af Amer 32 L Est GFR (MDRD) Non-Af 26 L BUN/Creatinine Ratio 13.5 Glucose 205 H Calcium 8.1 L Ur Drug Screen Comment Ethyl Alcohol < 3.0 02/05/22 19:08 WBC RBC Hgb Hct MCV MCH MCHC RDW Std Deviation RDW Coeff of Fior Plt Count MPV Immature Gran % (Auto) Neut % (Auto) Lymph % (Auto) [place] % (Auto) Eos % (Auto) Baso % (Auto) Absolute Neuts (auto) Absolute Lymphs (auto) Nucleated RBC % Sodium Potassium Chloride Carbon Dioxide Anion Gap BUN Creatinine Estim Creat Clear Calc Est GFR (MDRD) Af Amer Est GFR (MDRD) Non-Af BUN/Creatinine Ratio Glucose Calcium Ur Drug Screen Comment Ethyl Alcohol Treatment and Re-Evaluation Narrative: Patient presents from SNF with acute paranoid delusions and hallucinations. She appears well and nontoxic. Vital signs within normal limits. Her medical exam is within normal limits. PICC line intact with no evidence of infection. During discussion she has a flat affect and paranoid d elusions. She states she is afraid of everyone, even us the medical staff. She thinks people are going to hurt her. She is also having auditory hallucinations saying that people next-door in the hospital room are talking about her daughter. Labs and urinalysis will be obtained to make sure she has not developed any abnormalities that would explain her symptoms. However, she did have a full work-up yesterday including CT brain that was normal and I do not expect to find any abnormalities. This is likely psychiatric and she needs transfer to general psych. I consulted social work who will evaluate and work on placement. 1. Hallucinations 2. Paranoid delusions <Dr. Gustavo Rivera DO - Last Filed: 02/05/22 19:34> [facility] Narrative Medical decision making narrative: I performed a history and physical examination of the patient and discussed management plan with the physician medical administrative assistant. I reviewed the physician medical administrative assistant's note and agree with the documented findings and plan of care. Patient with hallucinations and paranoia. Patient with potential for violence against staff. Patient appears internally stimulated. Patient had extensive work-up done yesterday. We will look to see if there is any signs of an infectious encephalopathy. Patient's white count is stable since yesterday. She remains afebrile. She has been hypertensive and notes that she has been taking her medicines. She received some clonidine here. At this point believe the patient is medically cleared for psychiatric evaluation. Gustavo Rivera DO, MS Lab Data Labs: Laboratory Results - last 24 hr 02/05/22 02/05/22 02/05/22 18:17 18:17 18:17 WBC 7.9 RBC 3.50 L Hgb 9.7 L Hct 31.1 L MCV 88.9 MCH 27.7 MCHC 31.2 L RDW Std Deviation 53.0 H RDW Coeff of Fior 16.5 H Plt Count 378 MPV 9.9 Immature Gran % (Auto) 0.400 Neut % (Auto) 77.5 H Lymph % (Auto) 13.5 L [place] % (Auto) 5.4 Eos % (Auto) 2.3 Baso % (Auto) 0.9 Absolute Neuts (auto) 6.1 Absolute Lymphs (auto) 1.07 Nucleated RBC % 0 Sodium 142 Potassium 4.5 Chloride 112 H Carbon Dioxide 24.0 Anion Gap 6 BUN 28 H Creatinine 2.08 H Estim Creat Clear Calc 28.27 Est GFR (MDRD) Af Amer 32 L Est GFR (MDRD) Non-Af 26 L BUN/Creatinine Ratio 13.5 Glucose 205 H Calcium 8.1 L Ur Drug Screen Comment Ethyl Alcohol < 3.0 02/05/22 19:08 WBC RBC Hgb Hct MCV MCH MCHC RDW Std Deviation RDW Coeff of Fior Plt Count MPV Immature Gran % (Auto) Neut % (Auto) Lymph % (Auto) [place] % (Auto) Eos % (Auto) Baso % (Auto) Absolute Neuts (auto) Absolute Lymphs (auto) Nucleated RBC % Sodium Potassium Chloride Carbon Dioxide Anion Gap BUN Creatinine Estim Creat Clear Calc Est GFR (MDRD) Af Amer Est GFR (MDRD) Non-Af BUN/Creatinine Ratio Glucose Calcium Ur Drug Screen Comment Ethyl Alcohol Discharge Plan Triage Chief Complaint: Alt LOC ED Provider: Gustavo Rivera Dx/Rx/DC Orders Clinical Impression: Psychosis, Essential hypertension Prescriptions: No Action atorvastatin 80 mg tablet 80 mg PO QHS Qty: 90 RF: 3 pramipexole 1 MG tablet 1.5 mg PO BID RF: 0 isosorbide mononitrate 30 mg tablet extended release 24 hr 30 mg PO DAILY RF: 0 paroxetine HCl 20 mg tablet 20 mg PO QHS RF: 0 oxycodone 5 mg tablet 5 mg PO TID RF: 0 clopidogrel 75 MG tablet 75 mg PO DAILY RF: 0 hydroxyzine HCl 25 mg Tablet 25 mg PO DAILY RF: 0 insulin lispro [Humalog KwikPen Insulin] 100 unit/mL insulin pen 5 unit subcut LUNCH RF: 0 Lantus Solostar U-100 Insulin 100 unit/mL (3 mL) insulin pen 30 unit SUBCUT DAILY RF: 0 gabapentin 300 mg capsule 300 mg BID RF: 0 cyclobenzaprine 5 mg Tablet 5 mg PO QHS Qty: 0 RF: 0 melatonin 10 mg Tablet 10 mg PO QHS RF: 0 cefepime 1 gram Recon Soln 1 g IV Q24 Qty: 38 RF: 0 acetaminophen 325 mg Tablet 650 mg PO Q4H PRN (Reason: Pain) RF: 0 carvedilol 12.5 mg Tablet 12.5 mg PO BID RF: 0 hydroxyzine HCl 25 mg Tablet 25 mg PO TID PRN (Reason: Anxiety) RF: 0 bupropion HCl 150 mg tablet extended release 24 hr 150 mg PO DAILY RF: 0 Primary Care Provider: Raúl Eric Referrals: Raúl Eric MD [Primary Care Provider] - Disposition Disposition: Psychiatric Hospital or Unit
--- NOTE | 2022-02-05 18:10 | CM.ED ---
LUCRET[facility] Psychiatric Assessment: Patient: Chandni Carrillo Informant: Patient and Patient's chart SW went into patient's room and introduced self and role to patient. Patient said I want to see my daughter. SW asked patient why she is in the ED and patient said my daughter is coming at 6:00. (It was 6:05pm). Patient said I am not saying nothing till my daughter gets here. SW asked patient about why the SNF was worried about her and she was quiet for awhile and the voiced I want to see my daughter. SW, PA and met with patient. Patient said that she afraid of people.. you guys too. Patient said that someone told me... a girl told me. Patient stated why are all all together? and SW explained that we are working as a team. Patient heard a noise and said what is that noise? . Patient then talked about being fearful of people.Patient said that she is having hallucinations. Patient said that her daughter Trisha is going to be here as Hope talked to her. PA asked when patient last spoke to her daughter and patient was unable to identify when she last spoke to her daughter. Patient was asked about her hallucinations and patient said that she couldn't remember them. Patient appears paranoid and apprehensive during the interview. Per Squad report patient was found seated in bed. Patient present alert and oriented to name and . Staff reports sudden onset of behavior changes and hallucinations. Living Situation: Patient is currently resident at [facility] The complete psychiatric assessment is unable to be completed due to patient's current psychiatric state. Appearance: Disheveled Mood: Depressed, Flat and agitated Communication Pattern : Paranoid Thought Process: Patient reports hallucinations General Intellectual Functioning: Unknown Judgement: Impaired Insight: Impaired SW spoke to LOY Kovacs and MD Rivera. Plan is for inpatient [facility] Plan: Inpatient psych Sabine CANO
[2022-02-05 18:46] LABS: Absolute Lymphocyte Count 1.07 X10^3/uL (0.83-4.51); Absolute Neutrophil Count 6.1 X10^3/uL (2.0-7.7); Basophil# 0.07 X10^3/uL; Basophil% 0.9 % (0-1); Eosinophil# 0.18 X10^3/uL; Eosinophils% 2.3 % (0-5); Hematocrit 31.1 % (37-47); Hemoglobin 9.7 g/dL (12.0-15.0); Lymphocyte # 1.07 X10^3/ul (0.83-4.51); Lymphocyte % 13.5 % (19-41); Mean Corp Hgb Conc 31.2 g/dL (32-36); Mean Corpuscular Hgb 27.7 pg (27.0-32.0); Mean Corpuscular Volume 88.9 fL (81-99); Mean Platelet Vol. 9.9 fl (6.2-12.0); Monocyte# 0.43 X10^3/uL; Monocyte% 5.4 % (0-10); NRBC Flagged by Analyzer 0 % (0-5); Neutrophil # 6.12 X10^3/uL (2.7-7.7); Neutrophil % 77.5 % (47-70); Platelet Count 378 K/mm3 (150-450); RBC Distribution Width CV 16.5 % (11.6-14.6); White Blood Count 7.9 K/mm3 (4.4-11.0)
[2022-02-05 18:51] LABS: Anion Gap 6 (5-15); BUN 28 mg/dL (7-18); BUN/Creat Ratio 13.5 RATIO (10-20); Calcium,Total 8.1 mg/dL (8.5-10.1); Chloride 112 mmol/L (98-107); Creatinine, Serum 2.08 mg/dL (0.55-1.02); EST Glomerular Filtration Rate 26 mL/min (>60); Est Glom Filt Rate - Afr Amer 32 mL/min (>60); Estimated Creatinine Clearance 28.27 ml/min; Glucose 205 mg/dL (74-106); Potassium 4.5 mmol/L (3.5-5.1); Sodium Level 142 mmol/L (136-145)
[2022-02-05 19:24] LABS: Alcohol, Blood (Medical)-Serum < 3.0 mg/dL
--- NOTE | 2022-02-05 19:26 | CM.ED ---
LUCRETIA Note. [facility]IA [facility]. [facility]. LUCRETIA faxed referral to [facility]. Sabine CANO
[2022-02-05 19:32] LABS: Bacteria 0 SEEN /hpf (None Seen); Mucous, Urine 0 SEEN /hpf (<or=2+)
[2022-02-05 19:34] LABS: Amphetamine Urine VISTA NEGATIVE (<1000 ng/mL); Barbiturate Urine VISTA NEGATIVE (< 200 ng/mL); Benzodiazepine Urine VISTA NEGATIVE (< 200 ng/mL); Cocaine Urine VISTA NEGATIVE (< 300 ng/mL); Ecstacy Urine VISTA POSITIVE (< 500 ng/mL); Methadone Urine VISTA NEGATIVE (< 300 ng/mL); PCP Urine VISTA NEGATIVE (< 25 ng/mL); THC Urine VISTA NEGATIVE (< 50 ng/mL); Vista UDS pH Range 6
[2022-02-05 19:36] LABS: Color, Urine Yellow (Yellow); Glucose, Dipstick 250 mg/dl (Normal); Ketone-Dipstick Negative (Negative); Leukocyte Esterase-Dipstick 25 /ul (Negative); Nitrite-Dipstick Negative (Negative); Occult Blood-Urine 50 /ul (Negative); Protein-Dipstick 500 mg/dl (Negative); Urine Bilirubin Dipstick Negative (Negative); Urine Clarity Clear (Clear); Urine Urobilinogen Normal (Normal); Urine pH 6.5 (5.0 - 8.0)
[2022-02-05] MEDS: cloNIDine HCl 0.2 MG Tablet PO (19:41)
[2022-02-05 19:52] LABS: Red Blood Cells-Urine 0-5 SEEN /hpf (0-5); Squamous Epithelial Cells - UA 0-5 SEEN /hpf (5-10); White Blood Cells 10-25 SEEN /hpf (0-5)
--- NOTE | 2022-02-05 21:15 | CM.ED ---
LUCRETIA Note SW received call from [facility]. They declined due to medical acuity. LUCRETIA called [facility] they have open beds but wanted clarification regarding patient's wound. LUCRETIA spoke to lost charge card clerk Malik who reviewed that patient has 2 chronic non pressure wounds on the rightr and left foot. Patient had a picc line for antibiotics in September but no current antibiotics. LUCRETIA faxed this information to [facility] in the referral packet. Plan: Inpatient Psych Sabine CANO
--- NOTE | 2022-02-05 21:45 | CM.ED ---
LUCRETIA Note LUCRETIA called the number listed in the chart for her daughter, Trisha is disconnected. LUCRETIA attempted this phone number 2 x and both times the number disconnected. LUCRETIA gave handoff to Jose L at [facility] and advised referral is Pending at [facility]. Patient has been declined at [facility]. LUCRETIA faxed referral to [facility] for continuity of care. Sabine Grissom
--- NOTE | 2022-02-05 22:11 | CM.ED ---
LUCRETIA called [facility]. They are in the process of reviewing the referral now. LUCRETIA provided them with the phone number for the charge lpn Malik. loan manager updated. Plan: Inpatient psych Sabine Samuels
[2022-02-06] VITALS (10 sets, daily range): BP systolic 147–184; BP diastolic 68–109; PULSE 68–90; RESP 16–20; TEMP 36.3–36.7; O2SAT 96–98
[2022-02-06 01:31] LABS: Bedside Glucose 163 mg/dL (74-106)
[2022-02-06] MEDS: 0.9 % NaCl (Sterile) Posiflush 10 mL IV (03:57)
[2022-02-06] MEDS: oxyCODONE 5 MG Tablet 10 MG PO ×3 (06:47→22:41)
[2022-02-06 07:01] LABS: Bedside Glucose 195 mg/dL (74-106)
[2022-02-06] MEDS: Pramipexole Di-HCl 0.5 MG Tablet 1.5 MG PO ×2 (10:16→22:31)
[2022-02-06] MEDS: Isosorbide Mononitrate 30 MG Tablet PO (10:16)
[2022-02-06] MEDS: Clopidogrel Bisulfate 75 MG Tablet PO (10:16)
[2022-02-06] MEDS: hydrOXYzine PAM 25 MG Capsule PO (10:16)
[2022-02-06] MEDS: buPROPion (XL) 150 MG TABLET.XL PO (10:16)
[2022-02-06] MEDS: Insulin Glargine-YFGN 100 UNIT/ML Pen 30 UNIT SC (10:16)
[2022-02-06] MEDS: Carvedilol 12.5 MG Tablet PO ×2 (10:16→22:31)
[2022-02-06] MEDS: Gabapentin 300 MG Capsule PO ×2 (10:16→22:31)
--- NOTE | 2022-02-06 11:49 | ED.RN ---
CRISIS REASSESSED PT AND STATES THEY ARE GOING TO CONTINUE TRYING TO PLACE PT.
[2022-02-06] MEDS: Insulin Lispro 100 UNIT/ML INSULN.PEN SC (12:20)
[2022-02-06 12:26] LABS: Bedside Glucose 288 mg/dL (74-106)
--- NOTE | 2022-02-06 12:48 | NURSING ---
Patient had many questions regarding her hallucinations and the causes, wondering if her medication or infection can cause these. Gives history of auditory and visual hallucinations of thinking people are out to get me and to hurt me.
--- NOTE | 2022-02-06 13:49 | EKG12_ITS ---
Test Reason : PSYCH Blood Pressure : / mmHG Vent. Rate : 082 BPM Atrial Rate : 082 BPM P-R Int : 150 ms QRS Dur : 092 ms QT Int : 404 ms P-R-T Axes : 060 043 210 degrees QTc Int : 472 ms Normal sinus rhythm ST & T wave abnormality, consider lateral ischemia Prolonged QT Septal [place], age undetermined, cannot be excluded Abnormal ECG Confirmed by ELEN DELVALLE, FELTON ([id number]), video news editor HARINI PHAM ([id number]) on 02/08/2022 11:22:52 AM Referred By: Confirmed By:FELTON MYRICK MD
--- NOTE | 2022-02-06 15:58 | ED.RN ---
Patient hit call light for staff to be notified she fell off bedside commode. Patient found seated on floor, in no distress, denies injury. States she went to get off bedside commode and fell to ground and needs assistance to get back into bed. Patient placed back into bed by 3 staff members. Continues to deny injury.
--- NOTE | 2022-02-06 16:57 | NURSING ---
SPOKE WITH BRAEDEN FROM CRISIS PT HAS BEEN DENIED AT [facility] AND IS STILL PENDING AT [facility]
--- NOTE | 2022-02-06 18:42 | ED.RN ---
CALLED [facility] AND THEY ARE POSSIBLY DENYING PATIENT DUE TO PIC LINE AND BLOOD PRESSURES
--- NOTE | 2022-02-06 19:49 | NURSING ---
Patient resting comfortably in her room, denies needs at this time. Updated on difficulty finding placement for her.
--- NOTE | 2022-02-06 19:50 | ED.RN ---
[facility] DECLINED THE PATIENT
--- NOTE | 2022-02-06 21:22 | ED.RN ---
DON from [facility] Lexii Groves, she calls ED and suggests if its so hard for us to place her that we should just take the PICC line out she can just take oral antibiotics and be placed at a [facility]. This RN explains that our doctors will not take it out because she obviously needs it for her IV antibiotics. This RN inquired if she talked to her over seeing physician and she states she has not. Crisis is stating they want to send her back to the senior care, according to the DON they are refusing to take her back stating they cannot handle her behaviors there. JOSE ANTONIO states shes going to make some phone calls and call me back. Dr Rivera aware. Will wait for her return call.
--- NOTE | 2022-02-06 21:30 | ED.RN ---
attempted to call daughter Trisha, she does not have a voicemail set up therefore unavailable to leave message.
--- NOTE | 2022-02-06 22:20 | ED.RN ---
No call from JOSE ANTONIO, this RN calls to get update. JOSE ANTONIO Lexii states she has not gotten a hold of her physician or gotten the name of the psych facility they were already working with. After speaking with elisha and Dr Roberts patient does not meet criteria to continue to stay in the ED and the social sciences instructor at [facility] can continue to work with the psych facility they are currently working with. The DON gets upset on the phone and states your putting my staff at risk we can not handle her here. She this asks what have you done to stabilize her then? This RN explains that we have done blood work and urine and a covid tests to medically clear her for crisis/social work. We have not had to medicate her outside of [facility] So you haven't done anything This RN explains that patient has not had any outbursts of behaviors or shown any aggression toward herself or our staff. Therefore we can not treat a behavior we are not seeing. The DON states well you know I cant legally refuse to accept her back so i guess go ahead and send her back, i dont know what else to do if you cant help
[2022-02-06] MEDS: cycloBENZAPRine HCl 5 MG TABLET PO (22:30)
[2022-02-06] MEDS: Atorvastatin Calcium 80 MG Tablet PO (22:31)
[2022-02-06] MEDS: MELATONIN 10 MG TABLET PO (22:31)
[2022-02-06] MEDS: Paroxetine 20 MG Tablet PO (22:32)
--- NOTE | 2022-02-06 22:42 | NURSING ---
patient is calm and cooperative at this time. She reports she has had sutures in her foot for over a month and they were not taken out because she is in [facility] technician care and they would not let her leave to see her doctor.
--- NOTE | 2022-02-06 22:54 | NURSING ---
report called to nurse spencer at [facility]. this nurse answered all of benja questions. tj agreeable to taking pt back at [facility]. informed that pt has been calm and cooperative while at hospital and that pt is medically cleared to return to facility.
--- NOTE | 2022-02-06 23:11 | ED.RN ---
PRINTED OUT THE ENTIRE CHART FOR THE LONGTERM INCLUDING THE NOTES.
== END 2022-02-06 23:52 ==
PROVIDERS: Emergency Provider Physician Assistant; PCP Family Medicine; Visit Provider Physician Assistant
DX: F29 Unspecified psychosis not due to a substance or known physiological condition (principal); F22 Delusional disorders; E11.22 Type 2 diabetes mellitus with diabetic chronic kidney disease; E11.42 Type 2 diabetes mellitus with diabetic polyneuropathy; N18.4 Chronic kidney disease, stage 4 (severe); Z79.4 Long term (current) use of insulin; R44.3 Hallucinations, unspecified; I12.9 Hypertensive chronic kidney disease with stage 1 through stage 4 chronic kidney disease, or unspecified chronic kidney disease; I25.5 Ischemic cardiomyopathy; E78.5 Hyperlipidemia, unspecified; I25.10 Atherosclerotic heart disease of native coronary artery without angina pectoris; Z79.02 Long term (current) use of antithrombotics/antiplatelets; Z79.899 Other long term (current) drug therapy; Z95.5 Presence of coronary angioplasty implant and graft
CPT/HCPCS: 36592; 80048; 80307; 81001; 82077; 82962; 85025; 87426; 87811; 93005; 96365; 96366; 99285; J7050; A4216

== ENCOUNTER → 2022-02-12 | Outpatient (REF) | payer SELFPAY ==
[2018-09-21 13:23] VITALS: BMI 29.3
[2022-02-12 08:39] LABS: Absolute Lymphocyte Count 0.95 X10^3/uL (0.83-4.51); Absolute Neutrophil Count 5.6 X10^3/uL (2.0-7.7); Basophil# 0.06 X10^3/uL; Basophil% 0.8 % (0-1); Eosinophil# 0.18 X10^3/uL; Eosinophils% 2.5 % (0-5); Hematocrit 31.2 % (37-47); Hemoglobin 9.7 g/dL (12.0-15.0); Lymphocyte # 0.95 X10^3/ul (0.83-4.51); Lymphocyte % 13.2 % (19-41); Mean Corp Hgb Conc 31.1 g/dL (32-36); Mean Corpuscular Hgb 28.1 pg (27.0-32.0); Mean Corpuscular Volume 90.4 fL (81-99); Mean Platelet Vol. 10.7 fl (6.2-12.0); Monocyte% 4.2 % (0-10); NRBC Flagged by Analyzer 0 % (0-5); Neutrophil # 5.64 X10^3/uL (2.7-7.7); Neutrophil % 78.7 % (47-70); Platelet Count 233 K/mm3 (150-450); Red Blood Count 3.45 M/mm3 (4.2-5.4); White Blood Count 7.2 K/mm3 (4.4-11.0)
[2022-02-12 09:07] LABS: Anion Gap 6 (5-15); BUN 29 mg/dL (7-18); BUN/Creat Ratio 15.3 RATIO (10-20); CRP < 2.90 mg/L (0.0-3.0); Calcium,Total 7.8 mg/dL (8.5-10.1); Chloride 114 mmol/L (98-107); Creatinine, Serum 1.89 mg/dL (0.55-1.02); EST Glomerular Filtration Rate 29 mL/min (>60); Est Glom Filt Rate - Afr Amer 35 mL/min (>60); Glucose 43 mg/dL (74-106); Potassium 4.1 mmol/L (3.5-5.1); Sodium Level 144 mmol/L (136-145)
== END | disposition home or self-care (01) ==
LOC: OLS.SW500 05:00
PROVIDERS: PCP Family Medicine; Referring Provider Internal Medicine; Visit Provider Internal Medicine
DX: E11.22 Type 2 diabetes mellitus with diabetic chronic kidney disease (principal); I12.9 Hypertensive chronic kidney disease with stage 1 through stage 4 chronic kidney disease, or unspecified chronic kidney disease; N18.9 Chronic kidney disease, unspecified; R78.81 Bacteremia
CPT/HCPCS: 36415; 80048; 85025; 86140; 87070; 87077; 87186; 87205

== ENCOUNTER → 2022-02-19 | Outpatient (REF) | payer SELFPAY ==
[2018-09-21 13:23] VITALS: BMI 29.3
[2022-02-19 08:44] LABS: Absolute Lymphocyte Count 0.93 X10^3/uL (0.83-4.51); Absolute Neutrophil Count 3.8 X10^3/uL (2.0-7.7); Basophil# 0.04 X10^3/uL; Basophil% 0.8 % (0-1); Eosinophils% 3.8 % (0-5); Hematocrit 30.5 % (37-47); Hemoglobin 9.3 g/dL (12.0-15.0); Lymphocyte # 0.93 X10^3/ul (0.83-4.51); Lymphocyte % 17.5 % (19-41); Mean Corp Hgb Conc 30.5 g/dL (32-36); Mean Corpuscular Hgb 27.8 pg (27.0-32.0); Mean Platelet Vol. 11.1 fl (6.2-12.0); Monocyte# 0.33 X10^3/uL; Monocyte% 6.2 % (0-10); NRBC Flagged by Analyzer 0 % (0-5); Neutrophil # 3.79 X10^3/uL (2.7-7.7); Neutrophil % 71.3 % (47-70); Platelet Count 196 K/mm3 (150-450); RBC Distribution Width CV 16.9 % (11.6-14.6); RBC Distribution Width SD 56.7 fl (35.1-43.9); Red Blood Count 3.35 M/mm3 (4.2-5.4); White Blood Count 5.3 K/mm3 (4.4-11.0)
[2022-02-19 09:27] LABS: Anion Gap 1 (5-15); BUN 36 mg/dL (7-18); BUN/Creat Ratio 16.2 RATIO (10-20); CRP < 2.90 mg/L (0.0-3.0); Calcium,Total 8.5 mg/dL (8.5-10.1); Chloride 114 mmol/L (98-107); Creatinine, Serum 2.22 mg/dL (0.55-1.02); EST Glomerular Filtration Rate 24 mL/min (>60); Est Glom Filt Rate - Afr Amer 29 mL/min (>60); Glucose 91 mg/dL (74-106); Potassium 4.8 mmol/L (3.5-5.1); Sodium Level 141 mmol/L (136-145)
== END | disposition home or self-care (01) ==
LOC: OLS.SW500 05:00
PROVIDERS: PCP Family Medicine; Visit Provider Internal Medicine
DX: I12.9 Hypertensive chronic kidney disease with stage 1 through stage 4 chronic kidney disease, or unspecified chronic kidney disease (principal); E11.42 Type 2 diabetes mellitus with diabetic polyneuropathy; E11.22 Type 2 diabetes mellitus with diabetic chronic kidney disease; N18.9 Chronic kidney disease, unspecified; R78.81 Bacteremia
CPT/HCPCS: 36415; 80048; 85025; 86140

== ENCOUNTER → 2022-02-26 | Outpatient (REF) | payer SELFPAY ==
[2018-09-21 13:23] VITALS: BMI 29.3
[2022-02-26 08:59] LABS: Absolute Lymphocyte Count 0.74 X10^3/uL (0.83-4.51); Absolute Neutrophil Count 4.9 X10^3/uL (2.0-7.7); Basophil# 0.04 X10^3/uL; Basophil% 0.6 % (0-1); Eosinophil# 0.27 X10^3/uL; Eosinophils% 4.3 % (0-5); Hematocrit 28.9 % (37-47); Hemoglobin 8.8 g/dL (12.0-15.0); Lymphocyte # 0.74 X10^3/ul (0.83-4.51); Lymphocyte % 11.7 % (19-41); Mean Corp Hgb Conc 30.4 g/dL (32-36); Mean Corpuscular Hgb 27.8 pg (27.0-32.0); Mean Corpuscular Volume 91.5 fL (81-99); Mean Platelet Vol. 10.5 fl (6.2-12.0); Monocyte% 4.8 % (0-10); NRBC Flagged by Analyzer 0 % (0-5); Neutrophil # 4.93 X10^3/uL (2.7-7.7); Neutrophil % 78.1 % (47-70); Platelet Count 207 K/mm3 (150-450); RBC Distribution Width CV 16.9 % (11.6-14.6); Red Blood Count 3.16 M/mm3 (4.2-5.4); White Blood Count 6.3 K/mm3 (4.4-11.0)
[2022-02-26 09:44] LABS: Anion Gap 6 (5-15); BUN 35 mg/dL (7-18); BUN/Creat Ratio 14.8 RATIO (10-20); CRP < 2.90 mg/L (0.0-3.0); Calcium,Total 7.8 mg/dL (8.5-10.1); Chloride 115 mmol/L (98-107); Creatinine, Serum 2.36 mg/dL (0.55-1.02); EST Glomerular Filtration Rate 23 mL/min (>60); Est Glom Filt Rate - Afr Amer 27 mL/min (>60); Glucose 43 mg/dL (74-106); Sodium Level 142 mmol/L (136-145)
== END | disposition home or self-care (01) ==
LOC: OLS.SW500 05:00
PROVIDERS: PCP Family Medicine; Visit Provider Internal Medicine
DX: I12.9 Hypertensive chronic kidney disease with stage 1 through stage 4 chronic kidney disease, or unspecified chronic kidney disease (principal); E11.42 Type 2 diabetes mellitus with diabetic polyneuropathy; E11.22 Type 2 diabetes mellitus with diabetic chronic kidney disease; N18.9 Chronic kidney disease, unspecified; R78.81 Bacteremia
CPT/HCPCS: 36415; 80048; 85025; 86140

== ENCOUNTER 2022-02-27 14:55 | Outpatient (REF) | payer SELFPAY ==
[2018-09-21 13:23] VITALS: BMI 29.3
[2022-02-27 15:09] LABS: Mucous, Urine 0 SEEN /hpf (<or=2+)
[2022-02-27 15:15] LABS: Absolute Lymphocyte Count 0.58 X10^3/uL (0.83-4.51); Absolute Neutrophil Count 5.8 X10^3/uL (2.0-7.7); Basophil# 0.03 X10^3/uL; Basophil% 0.4 % (0-1); Eosinophil# 0.09 X10^3/uL; Eosinophils% 1.3 % (0-5); Hematocrit 29.8 % (37-47); Hemoglobin 9.3 g/dL (12.0-15.0); Lymphocyte # 0.58 X10^3/ul (0.83-4.51); Lymphocyte % 8.4 % (19-41); Mean Corp Hgb Conc 31.2 g/dL (32-36); Mean Corpuscular Hgb 28.2 pg (27.0-32.0); Mean Corpuscular Volume 90.3 fL (81-99); Mean Platelet Vol. 10.7 fl (6.2-12.0); Monocyte% 5.8 % (0-10); NRBC Flagged by Analyzer 0 % (0-5); Neutrophil % 83.7 % (47-70); POSITIVE DIFFERENTIAL YES; Platelet Count 174 K/mm3 (150-450); RBC Distribution Width SD 56.3 fl (35.1-43.9); White Blood Count 6.9 K/mm3 (4.4-11.0)
[2022-02-27 15:16] LABS: Color, Urine Yellow (Yellow); Glucose, Dipstick 100 mg/dl (Normal); Ketone-Dipstick Negative (Negative); Leukocyte Esterase-Dipstick 25 /ul (Negative); Nitrite-Dipstick Negative (Negative); Occult Blood-Urine 50 /ul (Negative); Protein-Dipstick 500 mg/dl (Negative); Urine Bilirubin Dipstick Negative (Negative); Urine Clarity Clear (Clear); Urine Urobilinogen Normal (Normal)
[2022-02-27 15:19] LABS: Differential Indicated SCAN CRITERIA MET
[2022-02-27 15:23] LABS: Squamous Epithelial Cells - UA 10-25 SEEN /hpf (5-10)
[2022-02-27 15:24] LABS: Coarse Granular Cast 0-5 SEEN /lpf (0-5 /lpf); White Blood Cells 0-5 SEEN /hpf (0-5)
[2022-02-27 15:25] LABS: Bacteria 1+ /hpf (None Seen); Hyaline Cast 0-5 SEEN /lpf (0-5); Red Blood Cells-Urine 0-5 SEEN /hpf (0-5)
[2022-02-27 15:38] LABS: Anion Gap 7 (5-15); BUN 34 mg/dL (7-18); BUN/Creat Ratio 12.8 RATIO (10-20); Calcium,Total 8.1 mg/dL (8.5-10.1); Chloride 112 mmol/L (98-107); Creatinine, Serum 2.65 mg/dL (0.55-1.02); EST Glomerular Filtration Rate 20 mL/min (>60); Est Glom Filt Rate - Afr Amer 24 mL/min (>60); Glucose 137 mg/dL (74-106); Potassium 5.1 mmol/L (3.5-5.1); Sodium Level 139 mmol/L (136-145)
[2022-02-27 16:01] LABS: Differential Comment SCANNED
[2022-02-27 16:02] LABS: Anisocytosis 2+; Platelet Estimate ADEQUATE (ADEQ)
== END 2022-02-27 23:59 | disposition home or self-care (01) ==
LOC: OLS.SW500 14:55
PROVIDERS: PCP Family Medicine; Visit Provider Internal Medicine
DX: R53.83 Other fatigue (principal); R50.9 Fever, unspecified; N39.0 Urinary tract infection, site not specified; M62.838 Other muscle spasm
CPT/HCPCS: 36415; 80048; 81001; 85025; 87086; 87088

== ENCOUNTER → 2022-03-01 | Outpatient (REF) | payer SELFPAY ==
[2018-09-21 13:23] VITALS: BMI 29.3
[2022-03-01 08:53] LABS: Anion Gap 7 (5-15); BUN 39 mg/dL (7-18); BUN/Creat Ratio 14.7 RATIO (10-20); Calcium,Total 7.9 mg/dL (8.5-10.1); Chloride 111 mmol/L (98-107); Creatinine, Serum 2.65 mg/dL (0.55-1.02); EST Glomerular Filtration Rate 20 mL/min (>60); Est Glom Filt Rate - Afr Amer 24 mL/min (>60); Glucose 195 mg/dL (74-106); Potassium 4.5 mmol/L (3.5-5.1); Sodium Level 136 mmol/L (136-145)
== END | disposition home or self-care (01) ==
LOC: OLS.SW500 05:00
PROVIDERS: PCP Family Medicine; Referring Provider Internal Medicine; Visit Provider Internal Medicine
DX: R53.83 Other fatigue (principal); D64.9 Anemia, unspecified; R41.0 Disorientation, unspecified
CPT/HCPCS: 36415; 80048

== ENCOUNTER → 2022-03-05 | Outpatient (REF) | payer SELFPAY ==
[2018-09-21 13:23] VITALS: BMI 29.3
[2022-03-05 09:13] LABS: Absolute Lymphocyte Count 1.37 X10^3/uL (0.83-4.51); Absolute Neutrophil Count 4.5 X10^3/uL (2.0-7.7); Basophil# 0.03 X10^3/uL; Basophil% 0.5 % (0-1); Eosinophil# 0.28 X10^3/uL; Eosinophils% 4.2 % (0-5); Hematocrit 29.8 % (37-47); Hemoglobin 9.3 g/dL (12.0-15.0); Lymphocyte # 1.37 X10^3/ul (0.83-4.51); Lymphocyte % 20.6 % (19-41); Mean Corp Hgb Conc 31.2 g/dL (32-36); Mean Corpuscular Hgb 27.8 pg (27.0-32.0); Mean Corpuscular Volume 89.2 fL (81-99); Mean Platelet Vol. 10.6 fl (6.2-12.0); Monocyte# 0.42 X10^3/uL; Monocyte% 6.3 % (0-10); NRBC Flagged by Analyzer 0 % (0-5); Neutrophil # 4.53 X10^3/uL (2.7-7.7); Neutrophil % 68.1 % (47-70); Platelet Count 255 K/mm3 (150-450); RBC Distribution Width CV 16.7 % (11.6-14.6); RBC Distribution Width SD 54.5 fl (35.1-43.9); Red Blood Count 3.34 M/mm3 (4.2-5.4); White Blood Count 6.7 K/mm3 (4.4-11.0)
[2022-03-05 09:25] LABS: Anion Gap 6 (5-15); BUN 36 mg/dL (7-18); BUN/Creat Ratio 15.8 RATIO (10-20); Calcium,Total 7.7 mg/dL (8.5-10.1); Chloride 114 mmol/L (98-107); Creatinine, Serum 2.28 mg/dL (0.55-1.02); EST Glomerular Filtration Rate 24 mL/min (>60); Est Glom Filt Rate - Afr Amer 28 mL/min (>60); Glucose 66 mg/dL (74-106); Sodium Level 142 mmol/L (136-145)
== END | disposition home or self-care (01) ==
LOC: OLS.SW500 05:00
PROVIDERS: PCP Family Medicine; Visit Provider Internal Medicine
DX: I12.9 Hypertensive chronic kidney disease with stage 1 through stage 4 chronic kidney disease, or unspecified chronic kidney disease (principal); E11.42 Type 2 diabetes mellitus with diabetic polyneuropathy; N18.9 Chronic kidney disease, unspecified; R78.81 Bacteremia
CPT/HCPCS: 36415; 80048; 85025; 86140

== ENCOUNTER 2022-04-09 16:36 | Inpatient (IN) | payer MEDICARE, MEDICAID, SELFPAY ==
[2018-09-21 13:23] VITALS: BMI 29.3
[2022-04-09] VITALS (13 sets, daily range): BP systolic 95–128; BP diastolic 59–105; PULSE 117–129; RESP 14–30; TEMP 37.4–38.4; O2SAT 24–97; BMI 31.1; BMI 29.0
--- NOTE | 2022-04-09 16:55 | EKG12_ITS ---
Test Reason : Blood Pressure : / mmHG Vent. Rate : 126 BPM Atrial Rate : 126 BPM P-R Int : 138 ms QRS Dur : 082 ms QT Int : 308 ms P-R-T Axes : 064 025 149 degrees QTc Int : 446 ms Sinus tachycardia Nonspecific ST and T wave abnormality Abnormal ECG Confirmed by ELEN DELVALLE, FELTON ([id number]), city editor HARINI PHAM ([id number]) on 04/13/2022 10:02:42 AM Referred By: Confirmed By:FELTON MYRICK MD
--- NOTE | 2022-04-09 16:58 | EDS_ITS ---
HPI History of Present Illness Chief Complaint: Fever Narrative Narrative: Patient is limited history, she is here alone comes by EMS for fever and ulcerations to her feet. She can tell me that they are changed compared with 1 week ago when she was discharged back to home from a care home, she cannot tell me how. She seems confused but when I asked her if she feels confused she states no. She cannot tell me how long the ulcers been there but states she has neuropathy in both of her feet and she was admitted to a nursing a because of this. She states she is taking care of her self and no one else is but she cannot give me details. She has diabetes. She denies other symptoms right now. [facility] Medical History Acquired varus deformity of left foot Acquired varus deformity of right foot Amputation foot, bilat Anemia due to chronic illness Anxiety and depression Atherosclerosis of [place] coronary artery of [place] heart without angina pectoris Back pain, chronic Bilateral edema of lower extremity Charcot's joint of right foot Chronic renal insufficiency Chronic ulcer of left foot with fat layer exposed Chronic ulcer of right foot with necrosis of muscle COVID-19 (08/28/21) Delayed wound healing Diabetes Diabetic foot ulcer associated with type 2 diabetes mellitus Diabetic infection of left foot Diabetic polyneuropathy Diabetic ulcer of right ankle Elevated troponin Essential (primary) hypertension GERD (gastroesophageal reflux disease) Hemoglobin A1c greater than 9.0% HLD (hyperlipidemia) Hyperparathyroidism, secondary renal Hypertension Iron deficiency anemia Ischemic cardiomyopathy Myocardial infarct Non-compliance Non-smoker Normocytic anemia NSTEMI (non-ST elevated myocardial infarction) (09/20/18) Obesity (BMI 30.0-34.9) Osteomyelitis of left foot RLS (restless legs syndrome) Stage 4 chronic kidney disease TIA (transient ischemic attack) 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 Ulcer of left foot with fat layer exposed Ulcer of left foot with muscle involvement without evidence of necrosis Ulcer of right lower extremity with fat layer exposed Home Medications atorvastatin 80 mg tablet 80 mg PO QHS cholesterol #90 tabs 11/30/19 [Rx Last Taken 01/03/22] pramipexole 1 mg tablet 1.5 mg PO BID restless legs 09/12/20 [History Last Taken 01/03/22] isosorbide mononitrate 30 mg tablet,extended release 24 hr 30 mg PO DAILY BP 03/03/21 [History Last Taken 01/04/22] oxycodone 5 mg tablet 5 mg PO TID 07/07/21 [History Last Taken 01/04/22] paroxetine HCl 20 mg tablet 20 mg PO QHS DEPRESSION 07/07/21 [History Last Taken 01/04/22] clopidogrel 75 mg tablet 75 mg PO DAILY anti platelet 10/25/21 [History Last Taken 01/04/22] hydroxyzine HCl 25 mg tablet 25 mg PO DAILY 11/16/21 [History Last Taken 01/04/22] insulin glargine 100 unit/mL (3 mL) subcutaneous pen (Lantus Solostar U-100 Insulin) 30 unit subcut DAILY diabetes 11/16/21 [History Last Taken 01/04/22] insulin lispro 100 unit/mL subcutaneous pen (Humalog KwikPen (U-100) Insulin) 5 unit subcut LUNCH 11/16/21 [History Last Taken Unknown] cyclobenzaprine 5 mg tablet 5 mg PO QHS pain #0 tabs 12/23/21 [Rx Last Taken 01/03/22] gabapentin 300 mg capsule 300 mg BID 12/23/21 [History Last Taken 01/04/22] melatonin 10 mg tablet 10 mg PO QHS 01/05/22 [History Last Taken 01/03/22] cefepime 1 gram solution for injection 1 g IV Q24 #38 ea 01/12/22 [Rx Last Taken Unknown] acetaminophen 325 mg tablet 650 mg PO Q4H PRN Pain 02/04/22 [History Last Taken Unknown] bupropion HCl 150 mg 24 hr tablet, extended release 150 mg PO DAILY 02/04/22 [History Last Taken Unknown] carvedilol 12.5 mg tablet 12.5 mg PO BID 02/04/22 [History Last Taken Unknown] hydroxyzine HCl 25 mg tablet 25 mg PO TID PRN Anxiety 02/04/22 [History Last Taken Unknown] Allergy/AdvReac Type Severity Reaction Status Date / Time Penicillins Allergy swelling Verified 04/09/22 16:37 in throat vancomycin Allergy Itching Verified 04/09/22 16:37 metronidazole AdvReac Nausea Verified 04/09/22 16:37 oxycodone [From OxyContin] AdvReac Shortness Verified 04/09/22 16:37 of breath Family History Mother Diabetes CVA (cerebral vascular accident) Brother CAD (coronary artery disease) CABG X 3 Cancer testicular Diabetes Brother CAD (coronary artery disease) CABG X3 Diabetes Brother CAD (coronary artery disease) Stents Diabetes Sister CAD (coronary artery disease) CABG x 3 CVA (cerebral vascular accident) Diabetes Surgical History History of bilateral carpal tunnel release History of History of coronary artery stent placement (12/31/20) History of foot surgery History of rotator cuff surgery Social History household members: none number of children: 2 current occupational status: disabled Smoking Status: Never smoker alcohol intake: never substance use type: does not use caffeine: Yes Type: carbonated beverages Number of servings: 2 ROS ROS ED Constitutional Constitutional ED: Reports chills, fever(s) and malaise Eyes Eyes: Denies change in vision or diplopia ENT ENT ED: Denies rhinorrhea or sore throat Cardiovascular Cardiovascular: Denies chest pain or palpitations Respiratory/Chest Respiratory/Chest: Denies cough or dyspnea Gastrointestinal Gastrointestinal: Reports nausea and vomiting; Denies abdominal pain or diarrhea Genitourinary Genitourinary ED: Denies dysuria or hematuria Musculoskeletal Musculoskeletal: Denies back pain or neck pain Integumentary Reports as per HPI, erythema and wounds; Denies abscess Neurologic Neurologic: Reports paresthesias RLE and LLE; Denies headache(s) or weakness Psychiatric Psychiatric: Denies anxiety or suicidal thoughts EXAM Physical Exam Const Vital Signs: 04/09/22 16:38 04/09/22 16:57 04/09/22 16:40 Temperature 99.7 F H 99.7 F H Temperature Source Oral Oral Pulse Rate 129 H 129 H Respiratory Rate 30 H 30 H Respiratory Pattern Normal Blood Pressure 121/84 H 121/84 H Blood Pressure Mean 96 96 Pulse Ox 95 95 Oxygen Delivery Method Room Air Room Air 04/09/22 17:15 Temperature Temperature Source Pulse Rate Respiratory Rate Respiratory Pattern Blood Pressure Blood Pressure Mean Pulse Ox 96 Oxygen Delivery Method Room Air Positive well nourished, well developed and obese Constitutional Narrative: Appears malaised General Appearance ED: well developed and NAD Nutritional Appearance: obese HEENT Reports moist mucous membranes normocephalic and atraumatic Eyes PERRL and EOMs intact bilaterally Neck full ROM and supple Resp normal respiratory effort and clear to auscultation bilaterally Cardio regular rate, regular rhythm and no murmurs Rate: tachycardic GI non-tender and non-distended Auscultation: normoactive bowel sounds Palpation: soft Back/Spine no CVA tenderness General Back: other FROM Extremity Extremity Narrative: Cellulitis to both feet progressing to the distal lower legs bilaterally without lymphangitis, no abscesses, multiple ulcerations on both feet, both plantar and lateral aspect of the left foot, no purulent discharge from any of them, no bleeding, no other discharge from them. Well-healed surgical scar lateral aspect of the right foot. There is a deformity there. General Extremety ED: Yes edema; Negative for pulses abnormal or tenderness General Extremity: edema bilateral lower extremity Details: moderate; Negative for pulses abnormal Neuro CN's II-XII intact bilaterally Neuro Narrative: Patient seems confused. When asked orientation questions she is oriented to her self, but she will not answer the other ones. Decree sensation both feet symmetrically stocking glove distribution Sensorium / Orientation: awake, alert and orientation impaired Motor Exam: strength 5/5 throughout Psych Psych Narrative: Limited evaluation due to confusion Skin Skin Narrative: Blanching erythema both feet, brisk cap refill both feet. Progresses up to the distal lower legs. Nontender patient states she is numb from neuropathy. MDM MDM MDM Narrative Medical decision making narrative: Septic work-up obtained, antibiotics ordered according to her allergy list we went with Rocepgarrett since she is allergic to both penicillins and vancomycin, at the initial evaluation not suspicious for necrotizing fasciitis given that there is no subcutaneous emphysema, but we will continue to monitor her erythema closely. Labs noted including severe leukocytosis, FELI, borderline lactic acid at 2.0, her qSOFA score is 2 and sofa score is 6: qSOFA (Quick SOFA) Score for Sepsis from [email or web address] on 04/09/2022 All calculations should be rechecked by clinician prior to use RESULT SUMMARY: 2 points qSOFA Score High Risk qSOFA Scores 2-3 are associated with a 3- to 14-fold increase in in-hospital mortality. Assess for evidence of organ dysfunction with blood testing including serum lactate and calculation of the full SOFA Score. Patients meeting these qSOFA criteria should have infection considered even if it was previously not. INPUTS: Altered mental status ?> 1 = Yes Respiratory rate >=2 ?> 1 = Yes Systolic BP <=00 ?> 0 = No Sequential Organ Failure Assessment (SOFA) Score from [employer] on 04/09/2022 All calculations should be rechecked by clinician prior to use RESULT SUMMARY: 6 points Initial SOFA Scores <= predict <=3.3% mortality (see Evidence for details) INPUTS: Judy? ?> 56.5 mm Hg FiO? ?> 23 % On mechanical ventilation ?> 0 = No Platelets, ?10?/?L ?> 0 = >=50 [place] Coma Scale ?> 1 = 13-14 Bilirubin, mg/dL (?mol/L) ?> 0 = <1.2 (<20) Mean arterial pressure OR administration of vasoactive agents required ?> 0 = No hypotension Creatinine, mg/dL (?mol/L) (or urine output) ?> 3 = 3.5?4.9 (300-440) or UOP <500 mL/day She has allergies to penicillins and vancomycin so she was given Rocephin 2 g according to the sepsis treatment order set at this hospital. On my interpreta tion 1 view chest x-ray is unremarkable, 3 view x-ray of each foot shows chronic changes and nothing obviously consistent with osteomyelitis at this time. Lab Data Attestation: I reviewed the patient's lab results. Labs: Laboratory Results - last 24 hr 04/09/22 04/09/22 04/09/22 16:50 16:50 16:50 WBC 21.0 H RBC 3.45 L Hgb 9.6 L Hct 30.8 L MCV 89.3 MCH 27.8 MCHC 31.2 L RDW Std Deviation 54.5 H RDW Coeff of Fior 16.9 H Plt Count 290 MPV 12.1 H Immature Gran % (Auto) 1.000 H Neut % (Auto) 94.1 H Lymph % (Auto) 1.2 L [place] % (Auto) 3.5 Eos % (Auto) 0.0 Baso % (Auto) 0.2 Absolute Neuts (auto) 19.8 H Absolute Lymphs (auto) 0.26 L Nucleated RBC % 0 Differential Comment SEE COMMENT Platelet Estimate ADEQUATE RBC Morphology N CHROM Anisocytosis RARE Macrocytosis RARE ESR > 130 H PT INR APTT Sodium 127 L Potassium 4.9 Chloride 99 Carbon Dioxide 18.0 L Anion Gap 10 BUN 61 H Creatinine 3.36 H Estim Creat Clear Calc 17.50 Est GFR (MDRD) Af Amer 18 L Est GFR (MDRD) Non-Af 15 L BUN/Creatinine Ratio 18.2 Glucose 290 H Lactic Acid 2.0 Calcium 8.6 Total Bilirubin 0.60 AST 57 H ALT 45 Alkaline Phosphatase 208 H C-React Prot Ext Range 430.00 H Total Protein 6.8 Albumin 1.6 L Globulin 5.2 H Albumin/Globulin Ratio 0.3 L 04/09/22 17:12 WBC RBC Hgb Hct MCV MCH MCHC RDW Std Deviation RDW Coeff of Fior Plt Count MPV Immature Gran % (Auto) Neut % (Auto) Lymph % (Auto) [place] % (Auto) Eos % (Auto) Baso % (Auto) Absolute Neuts (auto) Absolute Lymphs (auto) Nucleated RBC % Differential Comment Platelet Estimate RBC Morphology Anisocytosis Macrocytosis ESR PT 25.0 H INR 2.3 APTT 40.6 H Sodium Potassium Chloride Carbon Dioxide Anion Gap BUN Creatinine Estim Creat Clear Calc Est GFR (MDRD) Af Amer Est GFR (MDRD) Non-Af BUN/Creatinine Ratio Glucose Lactic Acid Calcium Total Bilirubin AST ALT Alkaline Phosphatase C-React Prot Ext Range Total Protein Albumin Globulin Albumin/Globulin Ratio ABG Data ABG results: ABG 04/09/22 17:30 Specimen Type ART Sample Site R Radial pH 7.42 Bicarbonate Actual 17.1 L Total CO2 18 Base Excess -7 L O2 Saturation 90 L ABG pCO2 26.5 L ABG pO2 57 L Radiography Diagnostic Testing: Clinical Impression(s) from Imaging Studies Brain CT 04/09/22 16:58 IMPRESSION: No evidence of acute intracranial or calvarial abnormality. No interval change. Electronically Signed: Arben Richards DO at 18:14 EDT , Chest X-Ray 04/09/22 18:06 IMPRESSION: There are no acute findings. Electronically Signed: Dallas Arndt MD at 18:40 EDT , Rhythm Strip Rhythm Strip: Sinus Tach Rate: 125 Ectopy: None EKG Initial EKG: Attestation: I personally reviewed and interpreted this EKG as follows: Interpretation: No Acute Injury Pattern, Sinus Tachycardia and Non- Specific ST Changes Discharge Plan Dx/Rx/DC Orders Clinical Impression: Sepsis, Cellulitis of both lower extremities, Diabetic foot ulcers, Delirium due to another medical condition, FELI (acute kidney injury), CRF (chronic renal failure) Disposition Disposition: Acute Care [facility]
--- NOTE | 2022-04-09 16:58 | CT_ITS ---
STUDY: CT BRAIN WITHOUT CONTRAST REASON FOR EXAM: Female, 56 years old. Altered mental status. RADIATION DOSAGE (If Supplied By Facility): CTDIvol = ( 44.99 ) mGy, DLP = ( 745.49 ) mGycm TECHNIQUE: Transaxial CT imaging of the brain was performed without administration of intravenous contrast material. Individualized dose optimization techniques were used for this CT. COMPARISON: 02/04/2022. FINDINGS: Normal soft tissue structures. Normal calvarium. Normal size ventricles and extra-axial spaces for the patient''s age. Normal white matter tracts of the cerebral hemispheres. Bilateral basal ganglia remote lacunar infarcts. Normal bilateral thalami. Normal brainstem. Normal cerebellum. There is no intracranial hemorrhage. There are no findings of an acute ischemic infarction. Normal visualized paranasal sinuses. CT/Brain/Head without Contrast IMPRESSION: No evidence of acute intracranial or calvarial abnormality. No interval change. Electronically Signed: Arben Richards DO at 18:14 EDT ,
[2022-04-09 17:14] LABS: Absolute Lymphocyte Count 0.26 X10^3/uL (0.83-4.51); Absolute Neutrophil Count 19.8 X10^3/uL (2.0-7.7); Basophil# 0.04 X10^3/uL; Basophil% 0.2 % (0-1); Eosinophil# 0.01 X10^3/uL; Hematocrit 30.8 % (37-47); Hemoglobin 9.6 g/dL (12.0-15.0); Lymphocyte # 0.26 X10^3/ul (0.83-4.51); Lymphocyte % 1.2 % (19-41); Mean Corp Hgb Conc 31.2 g/dL (32-36); Mean Corpuscular Hgb 27.8 pg (27.0-32.0); Mean Corpuscular Volume 89.3 fL (81-99); Mean Platelet Vol. 12.1 fl (6.2-12.0); Monocyte# 0.73 X10^3/uL; Monocyte% 3.5 % (0-10); NRBC Flagged by Analyzer 0 % (0-5); Neutrophil # 19.77 X10^3/uL (2.7-7.7); Neutrophil % 94.1 % (47-70); POSITIVE DIFFERENTIAL YES; POSITIVE MORPHOLOGY YES; Platelet Count 290 K/mm3 (150-450); RBC Distribution Width CV 16.9 % (11.6-14.6); RBC Distribution Width SD 54.5 fl (35.1-43.9); Red Blood Count 3.45 M/mm3 (4.2-5.4)
[2022-04-09 17:16] LABS: Differential Indicated SCAN CRITERIA MET
[2022-04-09] MEDS: Ondansetron 4 MG/2 ML Vial IV (17:16)
[2022-04-09] MEDS: 0.9% Normal Saline 1,000 ML 999 ML IV ×2 (17:16→21:03)
[2022-04-09 17:36] LABS: Base Excess -7 mmol/L (-2 to +2); Bicarbonate 17.1 mmol/L (22-26); Blood Gas Specimen Type ART; PO2 57 mmHG (75-100); SITE R Radial; SO2 90 % (95-99); Total Carbon Dioxide 18 mmol/L; pCO2 26.5 mmHg (35-45); pH 7.42 (7.35-7.45)
[2022-04-09 17:38] LABS: ALB/GLOB Ratio 0.3 RATIO (0.9-2.4); AST(SGOT) 57 U/L (15-37); Alanine Aminotransfer ALT/SGPT 45 U/L (13-56); Albumin, Serum 1.6 g/dL (3.2-5.0); Alkaline Phosphatase 208 U/L (45-117); Anion Gap 10 (5-15); BUN 61 mg/dL (7-18); BUN/Creat Ratio 18.2 RATIO (10-20); Calcium,Total 8.6 mg/dL (8.5-10.1); Chloride 99 mmol/L (98-107); Creatinine, Serum 3.36 mg/dL (0.55-1.02); EST Glomerular Filtration Rate 15 mL/min (>60); Est Glom Filt Rate - Afr Amer 18 mL/min (>60); Globulin 5.2 g/dL (2.2-4.2); Glucose 290 mg/dL (74-106); Potassium 4.9 mmol/L (3.5-5.1); Protein, Total 6.8 g/dL (6.4-8.2); Sodium Level 127 mmol/L (136-145)
[2022-04-09 17:41] LABS: International Normalized Ratio 2.3; Partial Thromboplast Time 40.6 Seconds (24.1-36.2)
[2022-04-09 17:43] LABS: Erythrocyte Sedimentation Rate > 130 mm/hr (0-30)
[2022-04-09 17:59] LABS: Anisocytosis RARE; Macrocytosis RARE; Platelet Estimate ADEQUATE (ADEQ); Red Cell Morphology N CHROM NORMAL (NORM C&C)
--- NOTE | 2022-04-09 18:06 | RAD_ITS ---
STUDY: X-RAY CHEST REASON FOR EXAM: Female, 56 years old. CHEST PAIN fever TECHNIQUE: XR Chest 1 View COMPARISON: 4 FINDINGS: There is no demonstrated pleural abnormality. Normal size heart. Normal mediastinum and elvie. Normal visualized pulmonary arteries. Normal visualized aortic arch and descending thoracic aorta. Normal visualized thoracic spine. Normal visualized ribs, clavicles, and shoulders. There is no demonstrated abnormality of the visualized soft tissue structures of the upper abdomen. RAD/Chest 1 View (Portable) IMPRESSION: There are no acute findings. Electronically Signed: Dallas Arndt MD at 18:40 EDT ,
--- NOTE | 2022-04-09 18:06 | RAD_ITS ---
STUDY: X-RAY - RIGHT FOOT CLINICAL: Female, 56 years old. INFECTION TECHNIQUE: 3 view(s) of the foot. COMPARISON: 01/08/2022 FINDINGS: There are healing fractures of the base of the second third metatarsals. There are postsurgical changes status post amputation of the fifth toe through the proximal shaft of the fifth metatarsal. There is soft tissue swelling at the operative site. There is a new pathologic fracture through the cuboid with lytic destructive changes and separation of fracture fragments. There is apparent involvement of the base of the fourth and fifth metatarsals.. Other findings unchanged since prior exam RAD/Foot min 3 Views IMPRESSION: Findings consistent with acute osteomyelitis and septic arthritis involving the cuboid and base of fourth and fifth metatarsals. Electronically Signed: Jefe Cesar MD at 19:22 EDT ,
--- NOTE | 2022-04-09 18:06 | RAD_ITS ---
STUDY: X-RAY - LEFT FOOT CLINICAL: Female, 56 years old. infection/pain TECHNIQUE: 3 view(s) of the foot. COMPARISON: 09/02/2021 FINDINGS: Normal talus, calcaneus, and tarsal bones. Normal visualized subtalar, talonavicular, calcaneocuboid, tarsal and tarsometatarsal articulations. Postsurgical changes status post amputation of the fifth toe through the base of fifth metatarsal. Normal metatarsophalangeal joint of the great toe. Normal tibial and fibular sesamoid bones. Normal interphalangeal joint of the great toe. Normal phalanges of the great toe. Normal second through fifth metatarsophalangeal joints. Normal interphalangeal joints and phalanges of the lesser toes. There is ulceration of the lateral plantar surface of the foot RAD/Foot min 3 Views IMPRESSION: Soft tissue ulceration of the plantar surface of the lateral foot without definitive evidence for acute osteomyelitis at this time Electronically Signed: Jefe Cesar MD at 19:24 EDT ,
--- NOTE | 2022-04-09 18:59 | HP.PCM.HOS_ITS ---
HPI - General General Date of Admission: 04/09/22 Date of Service: 04/09/22 Chief Complaint: Confusion, worsening BL diabetic foot ulcer appearance, recent SNF discharge to home. HPI Narrative The patient is a 56 y/o F w/ PMHx: Obesity, Anxiety and Depression, Diabetes mellitus type II with charcot foot, polyneuropathy, Hx Diabet foot ulcers s/p BL LE foot surgeries, HTN, HLD, AOCD, Hx TIA, CAD s/p PCI and Ischemic cardiomyopathy, CKD stage IV, RLS who presents to the [facility] ED on 04/09/22 with history of onset worsened appearance of BL pedal redness on the dorsal aspect up to the ankle circumferentially and worsened appearing of the plantar left foot ulcer with reported foul discharge per patient report with onset of fever noted to be significantly worsened over the last week recently discharged from skilled facility back to home with confusion of unclear duration noting that she has been taking care of her self and has no assistance prompting ED evaluation. Work-up in the ED included T99.7, heart rate 129, BP 121/84, respiratory rate 30, 95 to 96% on room air, CBC with WC 21, hemoglobin 9.6, platelet 290 with significant left shift and lymphopenia, coags with INR 2.3, PT 25, PTT 40.6, ABG with pH 7.42, bicarb 17.1, O2 saturation 90%, PCO2 26.5, PO2 57, CMP with sodium 127, carbon oxide 18, BUN/creatinine 61/3.36, glucose 290, anion gap 10, lactic acid 2, total bilirubin 0.60, AST/ALT 57/45, alk phos 208, CRP 430, ESR greater than 130, blood culture x2 pending per ED, urine culture pending per ED, CT of the brain with no acute intracranial finding, chest x-ray with no acute cardiopulmonary findings, plain film of the right foot with findings consistent with acute osteomyelitis and septic arthritis involving the cuboid and base of the fourth and fifth metatarsals, plain film of the left foot with soft tissue ulceration of the plantar surface of the lateral foot without definitive evidence of acute osteomyelitis, EKG with sinus tachycardia with nonspecific ST changes with no acute evidence of ischemia. In the ED patient ministered Zofran, Rocephin and normal saline 1 L bolus. [facility] Medical History Acquired varus deformity of left foot Acquired varus deformity of right foot Amputation foot, bilat Anemia due to chronic illness Anxiety and depression Atherosclerosis of [place] coronary artery of [place] heart without angina pectoris Back pain, chronic Bilateral edema of lower extremity Charcot's joint of right foot Chronic renal insufficiency Chronic ulcer of left foot with fat layer exposed Chronic ulcer of right foot with necrosis of muscle COVID-19 (08/28/21) Delayed wound healing Diabetes Diabetic foot ulcer associated with type 2 diabetes mellitus Diabetic infection of left foot Diabetic polyneuropathy Diabetic ulcer of right ankle Elevated troponin Essential (primary) hypertension GERD (gastroesophageal reflux disease) Hemoglobin A1c greater than 9.0% HLD (hyperlipidemia) Hyperparathyroidism, secondary renal Hypertension Iron deficiency anemia Ischemic cardiomyopathy Myocardial infarct Non-compliance Non-smoker Normocytic anemia NSTEMI (non-ST elevated myocardial infarction) (09/20/18) Obesity (BMI 30.0-34.9) Osteomyelitis of left foot RLS (restless legs syndrome) Stage 4 chronic kidney disease TIA (transient ischemic attack) 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 Ulcer of left foot with fat layer exposed Ulcer of left foot with muscle involvement without evidence of necrosis Ulcer of right lower extremity with fat layer exposed Home Medications atorvastatin 80 mg tablet 80 mg PO QHS cholesterol #90 tabs 11/30/19 [Rx Last Taken 04/07/22] isosorbide mononitrate 30 mg tablet,extended release 24 hr 30 mg PO DAILY BP 03/03/21 [History Last Taken 04/07/22] paroxetine HCl 20 mg tablet 20 mg PO QHS DEPRESSION 07/07/21 [History Last Taken 04/07/22] insulin glargine 100 unit/mL (3 mL) subcutaneous pen (Lantus Solostar U-100 Insulin) 30 unit subcut DAILY diabetes 11/16/21 [History Last Taken 04/07/22] insulin lispro 100 unit/mL subcutaneous pen (Humalog KwikPen (U-100) Insulin) 5 unit subcut LUNCH dm 11/16/21 [History Last Taken 04/07/22] cyclobenzaprine 5 mg tablet 5 mg PO QHS pain #0 tabs 12/23/21 [Rx Last Taken 04/07/22] gabapentin 300 mg capsule 300 mg BID nerve pain 03/16/22 [History Last Taken 04/07/22] bupropion HCl 150 mg 24 hr tablet, extended release 150 mg PO DAILY mood 02/04/22 [History Last Taken 04/07/22] carvedilol 12.5 mg tablet 12.5 mg PO BID heart 02/04/22 [History Last Taken 04/07/22] hydroxyzine HCl 25 mg tablet 25 mg PO TID PRN Anxiety 02/04/22 [History Last Taken 04/07/22] carvedilol 6.25 mg tablet 6.25 mg PO BID heart 04/09/22 [History Last Taken 04/07/22] chlorpheniramine-acetaminophen 2 mg-325 mg tablet (Coricidin HBP Cold and Flu) 2 tab PO Q4H cold 04/09/22 [History Last Taken 04/07/22] guaifenesin 600 mg tablet, extended release 12 hr 600 - 1,200 mg PO BID congestion 04/09/22 [History Last Taken 04/07/22] melatonin 5 mg tablet 5 mg PO QHS sleep 04/09/22 [History Last Taken 04/07/22] pramipexole 1.5 mg tablet 1.5 mg PO BID rls 04/09/22 [History Last Taken 04/07/22] Allergy/AdvReac Type Severity Reaction Status Date / Time Penicillins Allergy swelling Verified 04/09/22 16:37 in throat vancomycin Allergy Itching Verified 04/09/22 16:37 metronidazole AdvReac Nausea Verified 04/09/22 16:37 oxycodone [From OxyContin] AdvReac Shortness Verified 04/09/22 16:37 of breath Family History Mother Diabetes CVA (cerebral vascular accident) Brother CAD (coronary artery disease) CABG X 3 Cancer testicular Diabetes Brother CAD (coronary artery disease) CABG X3 Diabetes Brother CAD (coronary artery disease) Stents Diabetes Sister CAD (coronary artery disease) CABG x 3 CVA (cerebral vascular accident) Diabetes Surgical History History of bilateral carpal tunnel release History of History of coronary artery stent placement (03/24/21) History of foot surgery History of rotator cuff surgery Social History household members: none number of children: 2 current occupational status: disabled Smoking Status: Never smoker alcohol intake: never substance use type: does not use caffeine: Yes Type: carbonated beverages Number of servings: 2 ROS ROS Narrative Admission Review of Systems: CONSTITUTIONAL: No weight loss, + fever, chills, weakness or fatigue. HEENT: Eyes: No visual loss, blurred vision, double vision or yellow sclerae. Ears, Nose, Throat: No hearing loss, sneezing, congestion, runny nose or sore throat. SKIN: + Bl pedal erythema, edema, diabetic plantar foot wound with drainage. CARDIOVASCULAR: No chest pain, chest pressure or chest discomfort, palpitations, edema, orthopnea, syncopal events. RESPIRATORY: No shortness of breath, cough or sputum, wheezing, hemoptysis. GASTROINTESTINAL: No anorexia, nausea, vomiting or diarrhea, abdominal pain, melena, BRBPR. GENITOURINARY: No dysuria, frequency, urgency or retention. NEUROLOGICAL: + Confusion transiently, No headache, dizziness, syncope, p aralysis, ataxia, numbness or tingling in the extremities, focal weakness, change in bowel or bladder control, seizure. MUSCULOSKELETAL: + muscle, back pain, joint pain or stiffness. HEMATOLOGIC: + anemia, bleeding or bruising. LYMPHATICS: No enlarged nodes. No history of splenectomy. PSYCHIATRIC: + history of depression or anxiety. ENDOCRINOLOGIC: No reports of sweating, cold or heat intolerance. No polyuria or polydipsia. ALLERGIES: No history of asthma, hives, eczema or rhinitis. Vital Signs Vital Signs Vital Signs: 04/09/22 16:38 04/09/22 16:57 04/09/22 16:40 Temperature 99.7 F H 99.7 F H Temperature Source Oral Oral Pulse Rate 129 H 129 H Respiratory Rate 30 H 30 H Respiratory Pattern Normal Blood Pressure 121/84 H 121/84 H Blood Pressure Mean 96 96 Pulse Ox 95 95 Oxygen Delivery Method Room Air Room Air 04/09/22 17:15 Temperature Temperature Source Pulse Rate Respiratory Rate Respiratory Pattern Blood Pressure Blood Pressure Mean Pulse Ox 96 Oxygen Delivery Method Room Air Weight Weight: 192 lb 14.472 oz Body Mass Index (BMI) 31.1 Physical Exam Narrative Physical Examination: General: Awake, alert, oriented to self, place, year, president, previously noted confusion per discussion with ED physician is completely resolved and this is concern by nursing staff reports that she has been appropriate with stable vital signs, reports that she has been having increased redness to her lower extremities and has had purulent drainage to the left plantar dorsal wound. Skin: Normal color, normal turgor, no icterus, no cyanosis except for bilateral pedal erythema primarily on the dorsal surface up to the ankle circumferentially in addition to significant left foot lateral plantar notable diabetic wound/ulceration with no current discharge with periwound erythema. HEENT: AT/NC, EOMI, PERRLA, dry MM, no carotid bruits or JVD noted. Lungs: CTA bilaterally, moderate effort, mild decrease BL bases, no rales, ronchi or wheezing. Heart: Tachycardic with regular rhythm; no gallop, rub audible. Abdomen: Soft, overweight, NTTP, ND, mildly hyperactive BS, no HSM. Extremities: No cyanosis, no clubbing, bilateral pedal edema, not markedly pitting, see skin. Neurological: Patient awake, alert, oriented as noted, cognitive function appears improved, completely resolved and baseline intact at this time; pupils equally reactive to light and accommodation, cranial nerves II-XII grossly normal, moving all 4 extremities, no focal deficits, strength moderately globally creased. Psychiatric: Affect appears mildly fatigued otherwise normal, no acute evidence of depressive or anxiety feelings. Results Lab / Micro Data Result Diagrams: 04/09/22 16:50 04/09/22 16:50 Labs: Laboratory Results - last 24 hr 04/09/22 16:50: WBC 21.0 H, RBC 3.45 L, Hgb 9.6 L, Hct 30.8 L, MCV 89.3, MCH 27.8, MCHC 31.2 L, RDW Std Deviation 54.5 H, RDW Coeff of Fior 16.9 H, Plt Count 290, MPV 12.1 H, Immature Gran % (Auto) 1.000 H, Neut % (Auto) 94.1 H, Lymph % (Auto) 1.2 L, [place] % (Auto) 3.5, Eos % (Auto) 0.0, Baso % (Auto) 0.2, Absolute Neuts (auto) 19.8 H, Absolute Lymphs (auto) 0.26 L, Nucleated RBC % 0, Differential Comment SEE COMMENT, Platelet Estimate ADEQUATE, RBC Morphology N CHROM, Anisocytosis RARE, Macrocytosis RARE, ESR > 130 H 04/09/22 16:50: Sodium 127 L, Potassium 4.9, Chloride 99, Carbon Dioxide 18.0 L, Anion Gap 10, BUN 61 H, Creatinine 3.36 H, Estim Creat Clear Calc 17.50, Est GFR (MDRD) Af Amer 18 L, Est GFR (MDRD) Non-Af 15 L, BUN/Creatinine Ratio 18.2, Glucose 290 H, Calcium 8.6, Total Bilirubin 0.60, AST 57 H, ALT 45, Alkaline Phosphatase 208 H, C-React Prot Ext Range 430.00 H, Total Protein 6.8, Albumin 1.6 L, Globulin 5.2 H, Albumin/Globulin Ratio 0.3 L 04/09/22 16:50: Lactic Acid 2.0 04/09/22 17:12: PT 25.0 H, INR 2.3, APTT 40.6 H ABG Data ABG results: ABG 04/09/22 17:30 Specimen Type ART Sample Site R Radial pH 7.42 Bicarbonate Actual 17.1 L Total CO2 18 Base Excess -7 L O2 Saturation 90 L ABG pCO2 26.5 L ABG pO2 57 L Rhythm Strip Rhythm Strip: Sinus Tach Rate: 125 Ectopy: None Radiology Impression Brain CT 04/09/22 16:58 IMPRESSION: No evidence of acute intracranial or calvarial abnormality. No interval change. Electronically Signed: Arben Richards DO at 18:14 EDT , Chest X-Ray 04/09/22 18:06 IMPRESSION: There are no acute findings. 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, polyneuropathy, Hx Diabet foot ulcers s/p BL LE foot surgeries, HTN, HLD, AOCD, Hx TIA, CAD s/p PCI and Ischemic cardiomyopathy, CKD stage IV, RLS who presents to the [facility] ED on 04/09/22 with history of onset worsened appearance of BL pedal redness on the dorsal aspect up to the ankle circumferentially and worsened appearing of the plantar left foot ulcer with reported foul discharge per patient report with onset of fever noted to be significantly worsened over the last week recently discharged from skilled facility back to home with confusion of unclear duration noting that she has been taking care of her self. #1. Acute Encephalopathy secondary to Acute Sepsis secondary to Acute BL Ext remity Infected Diabetic Foot Ulcers with concurrent BL LE Cellulitis: Most recent foot cultures noted 02/12/22 with chronic bacterium stratum as well as MRSA with decent sensitivities with additionally operative intervention with bone biopsy with evidence of osteomyelitis at that time which demonstrated growth of Enterobacter and Pseudomonas treated that time with IV cefazolin, known to Dr. Julian/Azeem/Laura, will admit to PCU, maintain on telemetry given clinical appearance, continue judicious hydration, initiate on IV vanc and cefepime pending Wound Cx with de-escalation as able, obtain HgBA1c to assess for more recent DM control, offloading, consult Podiatry, consult Wound Care, r equest Wound Cx/MRSA Wound Cx concurrently, PT/OT/CM consultations for discharge planning, PRN pain regimen/antiemetic regimen. qSOFA 2, regular SOFA 6. #2. Acute kidney injury on CKD stage IV: Secondary to acute presentation as noted above #1. Admission BUN/Cr 61/3.36, prior baseline creatinine noted to be primarily 2-2.6. Will hydrate, hold nephrotoxic medications and repeat chemistry in AM. If no improvement would plan FeNa and renal ultrasound assessment. Follows most recently with Dr. Romero with nephrology. If function not improving with interventions may need to consider Nephrology consultation additionally. #3. Acute hyponatremia, hypovolemic: Admission sodium 127, baseline normal 1 36-1 44 range, will continue aggressive hydration, trend CMP. #4. Diabetes mellitus type II noted to be poorly controlled with Charcot foot, polyneuropathy: Hold oral home regimen, continue home insulin regimen with adjustments as needed, hemoglobin A1c requested, ADA diet, nutrition consultation for education and teaching requested, accu checks w/ ISS, continue home gabapentin regimen. #5. CAD, ischemic cardiomyopathy: We will continue patient Plavix, statin, Coreg, not on MYLA inhibitor/ARB likely secondary to underlying renal disease. Will judiciously hydrate. 01/06/22 ECOH w/ EF 55%, normal diastolic function, trivial MVI, no significant valvular vegetations demonstrated. #6. Obesity: Weight loss and lifestyle changes encouraged. #7. Chronic anemia, AOCD: Admission hemoglobin 9.6, MCV normocytic range, baseline hemoglobin 8-9, stable, trend. #8. Hypertension: Continue home regimen including Coreg, isosorbide with hold parameters as needed, PRN hydralazine. #9. Hyperlipidemia: We will continue patient home statin therapy. #10. Restless leg syndrome: We will continue patient home pramipexole regimen. #11. Anxiety and depression: We will continue patient home bupropion and hydroxyzine regimen as well as paroxetine given clinical improvement and currently mentating appropriately. #12. Chronic back pain: Patient with MRI of her spine in January 2022 with spinal stenosis with spinal surgery consultation with recommended continued con servative management secondary to significant high risk. Encourage positional changes, fall precautions, therapies consulted, cautiously continue patient low- dose Flexeril and chronic narcotic regimen as well as gabapentin given she is mentating at her baseline and blood pressures are appropriate at this time but low threshold to hold if becomes encephalopathic. #13. DVT prophylaxis: SCDs, heparin. #14. CODE STATUS: Discussed CODE status at length including difference between FULL code, DNR-CCA and DNR-CC status. Following discussions about the differences in these status, requested Full Code status. Advanced Care Planning Face to Face Time: 16 minutes. Charges/Coding Visit Charges Inpatient E&M: 74600 Init Hosp L3 Procedures Hospitalists Procedures: 29353 Advncd Care Plan 30 Min
[2022-04-09 19:03] LABS: Color, Urine Yellow (Yellow); Glucose, Dipstick 1000 mg/dl (Normal); Ketone-Dipstick Negative (Negative); Leukocyte Esterase-Dipstick Negative /ul (Negative); Mucous, Urine 0 SEEN /hpf (<or=2+); Nitrite-Dipstick Negative (Negative); Occult Blood-Urine 150 /ul (Negative); Protein-Dipstick 500 mg/dl (Negative); Red Blood Cells-Urine 0 SEEN /hpf (0-5); Specific Gravity, Urine 1.015 (1.002-1.030); Urine Bilirubin Dipstick Negative (Negative); Urine Clarity Cloudy (Clear); Urine Urobilinogen Normal (Normal)
[2022-04-09 19:13] LABS: Bacteria 1+ /hpf (None Seen); Squamous Epithelial Cells - UA 0-5 SEEN /hpf (5-10); White Blood Cells 0-5 SEEN /hpf (0-5)
[2022-04-09 19:14] LABS: Amorphous Sediment 3+
--- NOTE | 2022-04-09 19:29 | ED.RN ---
Report called to VICE PRESIDENT OF BRAND MANAGEMENTKELSIE Arredondo
[2022-04-09 20:53] LABS: Magnesium 1.3 mg/dL (1.6-2.6)
[2022-04-09 21:04] LABS: Reflex Lactate? Y
[2022-04-09] MEDS: 0.9% Normal Saline 1,000 ML 125 ML IV (22:26)
[2022-04-09] MEDS: Carvedilol 12.5 MG Tablet PO (22:27)
[2022-04-09] MEDS: Atorvastatin Calcium 80 MG Tablet PO (22:27)
[2022-04-09] MEDS: Paroxetine 20 MG Tablet PO (22:27)
[2022-04-09] MEDS: Heparin Injection (Vial) 5,000 UNIT/ML VIAL 5000 UNIT SC (22:28)
[2022-04-09] MEDS: MELATONIN 10 MG TABLET PO (22:28)
[2022-04-09] MEDS: Pramipexole Di-HCl 1 MG Tablet 1.5 MG PO (22:28)
[2022-04-09] MEDS: cycloBENZAPRine HCl 5 MG TABLET PO (22:28)
[2022-04-09] MEDS: Insulin Lispro 100 UNIT/ML INSULN.PEN SC (22:38)
[2022-04-09] MEDS: oxyCODONE 5 MG Tablet PO (22:38)
[2022-04-09] MEDS: Gabapentin 300 MG Capsule PO (22:38)
[2022-04-09 22:43] LABS: M R Staph aureus DNA By PCR POSITIVE (Negative); Probe Check PASS; Staph aureus DNA By PCR POSITIVE (Negative)
[2022-04-09] MEDS: Acetaminophen 325 MG Tablet 650 MG PO (22:48)
[2022-04-09 22:55] LABS: Bedside Glucose 236 mg/dL (74-106)
[2022-04-09] MEDS: 0.9% Saline Lock 10 ML Syringe IV ×2 (22:55→23:46)
[2022-04-09 23:01] LABS: Lactic Acid 1.2 mmol/L (0.4-1.9)
[2022-04-09 23:08] LABS: Procalcitonin 14.72 ng/mL (0.00-0.09)
[2022-04-09] MEDS: Magnesium Sulfate 4gm/100mL 4 GM/100 ML IV.SOLN. IV (23:46)
--- NOTE | 2022-04-09 23:50 | PCM.RX.CS ---
Consult Pharmacy has been consulted to manage selected antiobiotic: Vancomycin Type of Consult: New start Suspected Infection: Sepsis Labs: Sodium 127 mmol/L (136-145) L 04/09/22 16:50 Potassium 4.9 mmol/L (3.5-5.1) 04/09/22 16:50 Chloride 99 mmol/L (98-107) 04/09/22 16:50 Carbon Dioxide 18.0 mmol/L (21.0-32.0) L 04/09/22 16:50 Anion Gap 10 (5-15) 04/09/22 16:50 BUN 61 mg/dL (7-18) H 04/09/22 16:50 Creatinine 3.36 mg/dL (0.55-1.02) H 04/09/22 16:50 Est GFR (MDRD) Af Amer 18 mL/min (>60) L 04/09/22 16:50 Est GFR (MDRD) Non-Af 15 mL/min (>60) L 04/09/22 16:50 BUN/Creatinine Ratio 18.2 RATIO (10-20) 04/09/22 16:50 Glucose 290 mg/dL (74-106) H 04/09/22 16:50 Weight used for dosin.8 kg Estimated Creatinine Clearance: 20.16 Goal Trough: 15-20 mcg/mL Pharmacy Plan for Drug Dosing: Pharmacy Service will continue to monitor and adjust dosing as required. Medications Vancomycin HCl 750 mg/ Sodium (Chloride) 265 mls @ 250 mls/hr IV Q24H TAB Discontinued Medications Vancomycin HCl 2,000 mg/ (Sodium Chloride) 540 mls @ 250 mls/hr IV X1 ONE Stop: 04/09/22 23:39 Last Admin: 04/09/22 22:33 Dose: 250 mls/hr Follow-Up Labs: Trough Vancomycin Labs to be done on [date and time ordered]: 04/11 @ 5126
[2022-04-10] VITALS (41 sets, daily range): BP systolic 65–123; BP diastolic 40–83; PULSE 60–87; RESP 15–26; TEMP 35.8–37.9; O2SAT 94–100
[2022-04-10 00:20] LABS: Bedside Glucose 260 mg/dL (74-106)
[2022-04-10] MEDS: 0.9% Normal Saline 1,000 ML 999 ML IV (01:10)
--- NOTE | 2022-04-10 01:38 | CT_ITS ---
STUDY: CT BRAIN WITHOUT CONTRAST REASON FOR EXAM: Female, 56 years old patient with encephalopathy RADIATION DOSAGE (If Supplied By Facility): CTDIvol = ( 44.99 ) mGy, DLP = ( 779.24 ) mGycm TECHNIQUE: Transaxial CT imaging of the brain was performed without administration of intravenous contrast material. Multiplanar reformations are submitted for interpretation. Individualized dose optimization techniques were used for this CT. COMPARISON: CT of the head dated 04/09/2022. FINDINGS: Normal soft tissue structures. Normal calvarium. There is mild cerebral atrophy with widening of the extra-axial spaces and ventricular dilatation. There are areas of decreased attenuation within the white matter tracts of the supratentorial brain, consistent with microvascular disease changes. Normal basal ganglia and thalami. Normal brainstem. Normal cerebellum. There is no intracranial hemorrhage. There is mild atherosclerotic calcification of the intracranial arteries. Normal visualized paranasal sinuses. CT/Brain/Head without Contrast IMPRESSION: 1. Chronic involutional changes of the brain. 2. No CT evidence of acute intracranial hemorrhage. Electronically Signed: Shirley Santos MD at 4:03 EDT ,
--- NOTE | 2022-04-10 01:39 | PCM.HOSP.N ---
Hospitalist Note Patient appropriate blood pressure and mental status in the ED had continued patient home medications. Unfortunately pharmacy timing [place] patient had been dosed with low-dose Flexeril, gabapentin and her chronic home oxycodone regimen in addition to Coreg at the same time and appropriately following this became more lethargic and fatigued with lower blood pressure. An additional 1000 cc IV fluids was administered with improvement of her blood pressure. Patient did arouse with sternal rub and exam but would quickly fall back asleep. Pupils bilaterally equal but sluggish. No obvious posturing or seizure-like activity on evaluation. Strongly suspect that patient's current presentation is secondary to her medications however to be cautious we will repeat CT head. We will discontinue all hypertensive regimen and also also date of regimen at this time and continue to closely monitor.
[2022-04-10] MEDS: 0.9% Saline Lock 10 ML Syringe IV ×2 (02:05→06:28)
[2022-04-10 04:22] LABS: Absolute Lymphocyte Count 0.43 X10^3/uL (0.83-4.51); Basophil# 0.01 X10^3/uL; Basophil% 0.1 % (0-1); Eosinophil# 0.01 X10^3/uL; Eosinophils% 0.1 % (0-5); Hematocrit 25.1 % (37-47); Hemoglobin 7.6 g/dL (12.0-15.0); Lymphocyte # 0.43 X10^3/ul (0.83-4.51); Lymphocyte % 2.9 % (19-41); Mean Corp Hgb Conc 30.3 g/dL (32-36); Mean Corpuscular Hgb 27.3 pg (27.0-32.0); Mean Corpuscular Volume 90.3 fL (81-99); Mean Platelet Vol. 11.9 fl (6.2-12.0); Monocyte# 0.82 X10^3/uL; Monocyte% 5.6 % (0-10); NRBC Flagged by Analyzer 0 % (0-5); Neutrophil % 89.2 % (47-70); POSITIVE DIFFERENTIAL YES; POSITIVE MORPHOLOGY YES; Platelet Count 199 K/mm3 (150-450); RBC Distribution Width CV 17.1 % (11.6-14.6); RBC Distribution Width SD 56.4 fl (35.1-43.9); Red Blood Count 2.78 M/mm3 (4.2-5.4); White Blood Count 14.6 K/mm3 (4.4-11.0)
[2022-04-10 04:30] LABS: Differential Indicated SCAN CRITERIA MET
[2022-04-10 05:00] LABS: ALB/GLOB Ratio 0.3 RATIO (0.9-2.4); AST(SGOT) 87 U/L (15-37); Alanine Aminotransfer ALT/SGPT 49 U/L (13-56); Albumin, Serum 1.2 g/dL (3.2-5.0); Alkaline Phosphatase 167 U/L (45-117); Anion Gap 10 (5-15); BUN 60 mg/dL (7-18); BUN/Creat Ratio 19.5 RATIO (10-20); Calcium,Total 7.5 mg/dL (8.5-10.1); Chloride 107 mmol/L (98-107); Creatinine, Serum 3.08 mg/dL (0.55-1.02); EST Glomerular Filtration Rate 17 mL/min (>60); Est Glom Filt Rate - Afr Amer 20 mL/min (>60); Estimated Creatinine Clearance 19.09 ml/min; Globulin 4.3 g/dL (2.2-4.2); Glucose 238 mg/dL (74-106); Magnesium 2.7 mg/dL (1.6-2.6); Potassium 4.8 mmol/L (3.5-5.1); Protein, Total 5.5 g/dL (6.4-8.2); Sodium Level 134 mmol/L (136-145)
[2022-04-10 05:25] LABS: Differential Comment SCANNED
--- NOTE | 2022-04-10 05:47 | EX.PCM.CONCC ---
Assessment & Plan Assessment/Plan (1) Septic shock: PLAN: Plan RECOMMENDATIONS: 1. Continue Levophed to maintain a mean arterial pressure at or above 65 mmHg. 2. Continue antimicrobials as ordered. 3. Await podiatry evaluation. 4. Obtain echocardiogram, given positive blood cultures. 5. Place PICC line. 6. Send type and screen. Monitor blood counts daily and transfuse if hemoglobin drops below 7 g/dL. 7. The patient will be made n.p.o., pending improvement in her mentation. 8. Avoid sedating medications for now. Stop scheduled melatonin. 9. Start Protonix daily. IMPRESSIONS: 1. Septic shock The patient presented to the hospital with sepsis due to MRSA osteomyelitis/bacteremia with acute sepsis related organ dysfunction as evidenced by acute on chronic kidney disease and altered mentation. Ultimately, the patient developed fluid refractory hypotension, which necessitated the initiation of vasopressor support. Plan to continue antimicrobials as ordered. Podiatry and wound consultations are pending. In the interim, will place PICC line and continue vasopressor support to maintain a mean arterial pressure at or above 65 mmHg. In addition, given the patient's MRSA bacteremia, will obtain echocardiogram. 2. Acute on chronic kidney disease Likely prerenal/ischemic ATN in the setting of #1. Anticipate improvement with volume expansion and stabilization of hemodynamics. Continue to monitor urine output. No current indication for renal replacement therapy. Avoid nephrotoxic medications. 3. Encephalopathy Likely metabolic versus polypharmacy in etiology. I would plan to hold sedating medications for now. The patient should be made n.p.o., pending improvement in her mental state. CT head was unremarkable. ABG was appropriate. 4. Anemia The patient presented with acute on chronic anemia. Hemoglobin this morning was noted to be 7.6 g/dL. Accordingly, will send type and screen. Plan to monitor blood counts and transfuse if hemoglobin drops below 7 g/dL. Start Protonix. 5. Hypovolemic hyponatremia Improving with fluid resuscitation. Continue to monitor chemistry profile daily. 6. History of coronary artery disease/anemia/hypertension/diabetes mellitus/hyperlipidemia/anxiety/depression/chronic pain syndrome Complicates care, management, recovery and prognosis. Recommend holding home Flexeril, Neurontin, hydroxyzine and melatonin, pending improvement in mental state. In addition, continue to hold home antihypertensives. TIME: 40 minutes of critical care time, independent of procedures, was spent addressing the patient's septic shock, acute on chronic kidney disease, encephalopathy, anemia, review of all data and collaboration with the care team. HPI Consult Data Date of Consult: 04/10/22 HPI Narrative Reason for Consultation: Sepsis HPI Narrative: The patient is a 56-year-old female, with a history as outlined below, who presented to the emergency department via EMS on April 09 with worsening diabetic foot ulcers. The patient is quite somnolent so history pertinent to her hospitalization was obtained primarily via chart review. The patient has a known history of diabetes mellitus with polyneuropathy and prior foot surgeries, along with coronary artery disease, chronic kidney disease, hypertension and hyperlipidemia. On presentation to the emergency department, the patient was noted to have a low-grade fever of 99.3 ?F. She was tachycardic and tachypneic, but otherwise hemodynamically stable and maintaining appropriate oxygen saturations on room air. Initial laboratory evaluation revealed an elevated white blood cell count to 21,000. The patient was anemic with a hemoglobin of 9.6 g/dL. Chemistry profile was notable for a sodium of 127, bicarbonate of 18 and creatinine of 3.36. Lactate was normal at 2.0. Total bili was within normal limits. CRP was elevated at 430. Procalcitonin was increased to 14.7. Urine analysis was unremarkable. MRSA screen was positive. Head CT revealed no acute intracranial abnormality. Chest x-ray demonstrated no acute cardiopulmonary process. Foot x-ray demonstrated a soft tissue ulceration on the plantar aspect of the left lateral foot. Foot x-ray of the right foot demonstrated acute osteomyelitis and septic arthritis involving the cuboid and base of the fourth and fifth metatarsals. The patient received supplemental IV fluid hydration and was started on empiric broad-spectrum antimicrobials. She was subsequently transferred to the medical intensive care unit for further management. Overnight, the patient developed fluid refractory hypotension, which necessitated the initiation of vasopressor support. The patient is currently requiring Levophed at 10 mcg/min to maintain hemodynamic stability. [facility] Medical History Acquired varus deformity of left foot Acquired varus deformity of right foot Amputation foot, bilat Anemia due to chronic illness Anxiety and depression Atherosclerosis of [place] coronary artery of [place] heart without angina pectoris Back pain, chronic Bilateral edema of lower extremity Charcot's joint of right foot Chronic renal insufficiency Chronic ulcer of left foot with fat layer exposed Chronic ulcer of right foot with necrosis of muscle COVID-19 (08/28/21) Delayed wound healing Diabetes Diabetic foot ulcer associated with type 2 diabetes mellitus Diabetic infection of left foot Diabetic polyneuropathy Diabetic ulcer of right ankle Elevated troponin Essential (primary) hypertension GERD (gastroesophageal reflux disease) Hemoglobin A1c greater than 9.0% HLD (hyperlipidemia) Hyperparathyroidism, secondary renal Hypertension Iron deficiency anemia Ischemic cardiomyopathy Myocardial infarct Non-compliance Non-smoker Normocytic anemia NSTEMI (non-ST elevated myocardial infarction) (09/20/18) Obesity (BMI 30.0-34.9) Osteomyelitis of left foot RLS (restless legs syndrome) Stage 4 chronic kidney disease TIA (transient ischemic attack) 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 Ulcer of left foot with fat layer exposed Ulcer of left foot with muscle involvement without evidence of necrosis Ulcer of right lower extremity with fat layer exposed Home Medications atorvastatin 80 mg tablet 80 mg PO QHS cholesterol #90 tabs 11/30/19 [Rx Last Taken 04/07/22] isosorbide mononitrate 30 mg tablet,extended release 24 hr 30 mg PO DAILY BP 03/03/21 [History Last Taken 04/07/22] paroxetine HCl 20 mg tablet 20 mg PO QHS DEPRESSION 07/07/21 [History Last Taken 04/07/22] insulin glargine 100 unit/mL (3 mL) subcutaneous pen (Lantus Solostar U-100 Insulin) 30 unit subcut DAILY diabetes 11/16/21 [History Last Taken 04/07/22] insulin lispro 100 unit/mL subcutaneous pen (Humalog KwikPen (U-100) Insulin) 5 unit subcut LUNCH dm 11/16/21 [History Last Taken 04/07/22] cyclobenzaprine 5 mg tablet 5 mg PO QHS pain #0 tabs 12/23/21 [Rx Last Taken 04/07/22] gabapentin 300 mg capsule 300 mg BID nerve pain 12/23/21 [History Last Taken 04/07/22] bupropion HCl 150 mg 24 hr tablet, extended release 150 mg PO DAILY mood 02/04/22 [History Last Taken 04/07/22] carvedilol 12.5 mg tablet 12.5 mg PO BID heart 02/04/22 [History Last Taken 04/07/22] hydroxyzine HCl 25 mg tablet 25 mg PO TID PRN Anxiety 02/04/22 [History Last Taken 04/07/22] carvedilol 6.25 mg tablet 6.25 mg PO BID heart 04/09/22 [History Last Taken 04/07/22] chlorpheniramine-acetaminophen 2 mg-325 mg tablet (Coricidin HBP Cold and Flu) 2 tab PO Q4H cold 04/09/22 [History Last Taken 04/07/22] guaifenesin 600 mg tablet, extended release 12 hr 600 - 1,200 mg PO BID congestion 04/09/22 [History Last Taken 04/07/22] melatonin 5 mg tablet 5 mg PO QHS sleep 04/09/22 [History Last Taken 04/07/22] pramipexole 1.5 mg tablet 1.5 mg PO BID rls 04/09/22 [History Last Taken 04/07/22] Allergy/AdvReac Type Severity Reaction Status Date / Time Penicillins Allergy swelling Verified 04/09/22 16:37 in throat vancomycin Allergy Itching Verified 04/09/22 16:37 metronidazole AdvReac Nausea Verified 04/09/22 16:37 oxycodone [From OxyContin] AdvReac Shortness Verified 04/09/22 16:37 of breath Family History Mother Diabetes CVA (cerebral vascular accident) Brother CAD (coronary artery disease) CABG X 3 Cancer testicular Diabetes Brother CAD (coronary artery disease) CABG X3 Diabetes Brother CAD (coronary artery disease) Stents Diabetes Sister CAD (coronary artery disease) CABG x 3 CVA (cerebral vascular accident) Diabetes Surgical History History of bilateral carpal tunnel release History of History of coronary artery stent placement (12/31/20) History of foot surgery History of rotator cuff surgery Social History household members: none number of children: 2 current occupational status: disabled Smoking Status: Never smoker alcohol intake: never substance use type: does not use caffeine: Yes Type: carbonated beverages Number of servings: 2 ROS Review of Systems ROS Unobtainable: due to mental status Physical Exam Const Constitutional Narrative: Arouses to tactile stimulation but then falls quickly back to sleep. General Appearance: lethargic and ill appearing HEENT normocephalic and head/scalp atraumatic Eyes PERRL Neck supple General: trachea midline Chest inspection of chest normal Resp normal respiratory effort Auscultation: Negative for rales, rhonchi or wheezes Cardio regular rate and regular rhythm GI normal to inspection, nondistended, normoactive bowel sounds Extremity General Extremity: edema bilateral lower extremity Skin Skin Narrative: Left foot is wrapped currently. Right foot is edematous without any focal drainage. Erythema noted. Pedal edema is present. Neuro Neuro Narrative: The patient is quite somnolent at this time. Lab / Micro Data Result Diagrams: 04/10/22 03:58 04/10/22 03:58 Labs: Laboratory Results - last 24 hr 04/09/22 16:50: WBC 21.0 H, RBC 3.45 L, Hgb 9.6 L, Hct 30.8 L, MCV 89.3, MCH 27.8, MCHC 31.2 L, RDW Std Deviation 54.5 H, RDW Coeff of Fior 16.9 H, Plt Count 290, MPV 12.1 H, Immature Gran % (Auto) 1.000 H, Neut % (Auto) 94.1 H, Lymph % (Auto) 1.2 L, Starr % (Auto) 3.5, Eos % (Auto) 0.0, Baso % (Auto) 0.2, Absolute Neuts (auto) 19.8 H, Absolute Lymphs (auto) 0.26 L, Nucleated RBC % 0, Differential Comment SEE COMMENT, Platelet Estimate ADEQUATE, RBC Morphology N CHROM, Anisocytosis RARE, Macrocytosis RARE, ESR > 130 H 04/09/22 16:50: Sodium 127 L, Potassium 4.9, Chloride 99, Carbon Dioxide 18.0 L, Anion Gap 10, BUN 61 H, Creatinine 3.36 H, Estim Creat Clear Calc 17.50, Est GFR (MDRD) Af Amer 18 L, Est GFR (MDRD) Non-Af 15 L, BUN/Creatinine Ratio 18.2, Glucose 290 H, Calcium 8.6, Total Bilirubin 0.60, AST 57 H, ALT 45, Alkaline Phosphatase 208 H, C-React Prot Ext Range 430.00 H, Total Protein 6.8, Albumin 1.6 L, Globulin 5.2 H, Albumin/Globulin Ratio 0.3 L 04/09/22 16:50: Lactic Acid 2.0 04/09/22 16:50: Magnesium 1.3 L 04/09/22 17:12: PT 25.0 H, INR 2.3, APTT 40.6 H 04/09/22 18:40: Urine Color Yellow, Urine Clarity Cloudy, Urine pH 5.0, Ur Specific [place] 1.015, Urine Protein 500 H, Urine Glucose (UA) 1000 H, Urine Ketones Negative, Urine Occult Blood 150 H, Urine Nitrite Negative, Urine Bilirubin Negative, Urine Urobilinogen Normal, Ur Leukocyte Esterase Negative, Urine RBC 0 SEEN, Urine WBC 0-5 SEEN, Ur Squamous Epith Cells 0-5 SEEN, Amorphous Sediment 3+, Urine Bacteria 1+, Urine Mucus 0 SEEN 04/09/22 20:10: COVID-19 (LIUDMILA) Not Detected 04/09/22 20:51: S.aureus Protein A PCR POSITIVE H, MRSA (PCR) POSITIVE H 04/09/22 22:20: Procalcitonin 14.72 H 04/09/22 22:20: Lactic Acid 1.2 04/09/22 22:36: POC Glucose 236 H 04/10/22 00:05: POC Glucose 260 H 04/10/22 03:58: WBC 14.6 H, RBC 2.78 L, Hgb 7.6 L, Hct 25.1 L, MCV 90.3, MCH 27.3, MCHC 30.3 L, RDW Std Deviation 56.4 H, RDW Coeff of Fior 17.1 H, Plt Count 199, MPV 11.9, Immature Gran % (Auto) 2.100 H, Neut % (Auto) 89.2 H, Lymph % (Auto) 2.9 L, Starr % (Auto) 5.6, Eos % (Auto) 0.1, Baso % (Auto) 0.1, Absolute Neuts (auto) 13.0 H, Absolute Lymphs (auto) 0.43 L, Nucleated RBC % 0, Differential Comment SCANNED 04/10/22 03:58: Sodium 134 L, Potassium 4.8, Chloride 107, Carbon Dioxide 17.0 L, Anion Gap 10, BUN 60 H, Creatinine 3.08 H, Estim Creat Clear Calc 19.09, Est GFR (MDRD) Af Amer 20 L, Est GFR (MDRD) Non-Af 17 L, BUN/Creatinine Ratio 19.5, Glucose 238 H, Calcium 7.5 L, Magnesium 2.7 H, Total Bilirubin 0.60, AST 87 H, ALT 49, Alkaline Phosphatase 167 H, Total Protein 5.5 L, Albumin 1.2 L, Globulin 4.3 H, Albumin/Globulin Ratio 0.3 L ABG Data ABG results: ABG 04/09/22 17:30 Specimen Type ART Sample Site R Radial pH 7.42 Bicarbonate Actual 17.1 L Total CO2 18 Base Excess -7 L O2 Saturation 90 L ABG pCO2 26.5 L ABG pO2 57 L Rhythm Strip Rhythm Strip: Sinus Tach Rate: 125 Ectopy: None Radiology Impression Brain CT 04/09/22 16:58 IMPRESSION: No evidence of acute intracranial or calvarial abnormality. No interval change. Electronically Signed: Arben Richards DO at 18:14 EDT , Chest X-Ray 04/09/22 18:06 IMPRESSION: There are no acute findings. Electronically Signed: Dallas Arndt MD at 18:40 EDT , Foot X-Ray 04/09/22 18:06 IMPRESSION: Soft tissue ulceration of the plantar surface of the lateral foot without definitive evidence for acute osteomyelitis at this time Electronically Signed: Jefe Cesar MD at 19:24 EDT , Foot X-Ray 04/09/22 18:06 IMPRESSION: Findings consistent with acute osteomyelitis and septic arthritis involving the cuboid and base of fourth and fifth metatarsals. Electronically Signed: Jefe Cesar MD at 19:22 EDT , Brain CT 04/10/22 01:38 IMPRESSION: 1. Chronic involutional changes of the brain. 2. No CT evidence of acute intracranial hemorrhage. Electronically Signed: Shirley Santos MD at 4:03 EDT , Charges/Coding Procedures Hospitalists Procedures: [id number] [facility] Department 1st Hr
[2022-04-10] MEDS: 0.9% Normal Saline 1,000 ML 125 ML IV ×3 (06:28→21:36)
[2022-04-10 06:31] LABS: International Normalized Ratio 1.6; Prothrombin Time (Protime)PT. 18.9 SECONDS (11.7-14.9)
--- NOTE | 2022-04-10 06:33 | ECHOD_ITS ---
Reason For Study: Staph Bacteremia Procedure This was a 2D Doppler, Color Flow transthoracic echocardiogram. The exam was of adequate technical quality. Exam performed portable in ICU/CCU. Left Ventricle Normal LV size. Mild concentric left ventricular hypertrophy. Left ventricular systolic function is normal. The estimated ejection fraction is 55 %. There is evidence of diastolic dysfunction. No regional wall motion abnormalities noted. Right Ventricle Normal RV size. Normal systolic function. Atria Normal left atrium. Normal right atrium. No doppler evidence for ASD. Mitral Valve There is no mitral annular calcification. Normal mitral valve. Trivial mitral valve insufficiency. Tricuspid Valve Normal tricuspid valve. Mild to moderate (1-2+) tricuspid valve insufficiency. Right ventricular systolic pressure estimated to be 48 mmHg. Aortic Valve Trisinus/trileaflet aortic valve. Normal aortic valve. Pulmonic Valve Normal pulmonic valve. Trivial pulmonic valve insufficiency. Great Vessels Normal sized aortic root. Calcified aortic root. Pericardium/Pleural Trivial pericardial effusion. There are no echocardiographic indications of cardiac tamponade. MMode/2D Measurements & Calculations LVIDd: 5.1 cm IVSd: 1.4 cm Ao root diam: 2.9 cm LVIDs: 3.9 cm LVPWd: 1.4 cm RVDd: 3.3 cm FS: 23.0 % LAV(MOD-bp): 58.9 ml LVAd ap4: 30.0 cm2 SV(MOD-sp4): 46.7 ml LAV(MOD-bp) Indexed: 31.2 ml/m2 LVLd ap4: 8.0 cm LAV(MOD-sp2): 57.7 ml EDV(MOD-sp4): 92.8 ml LAV(MOD-sp4): 54.3 ml EDV(sp4-el): 95.5 ml LVAs ap4: 19.2 cm2 LVLs ap4: 6.8 cm ESV(MOD-sp4): 46.2 ml ESV(sp4-el): 45.8 ml EF(MOD-sp4): 50.3 % EF(sp4-el): 52.1 % SV(sp4-el): 49.7 ml LA A4 area: 19.6 cm2 LA dimension(2D): 4.0 cm RA A4 area: 17.4 cm2 Doppler Measurements & Calculations MV E max rhys: 99.3 cm/sec Lat Peak E' Rhys: 5.8 cm/sec Med Peak E' Rhys: 5.4 cm/sec MV A max rhys: 89.5 cm/sec E/E' lat: 17.1 E/E' med: 18.5 MV E/A: 1.1 Ao V2 max: 153.2 cm/sec LV V1 max: 105.3 cm/sec PA V2 max: 129.4 cm/sec Ao max P.4 mmHg LV V1 max P.4 mmHg Ao V2 mean: 113.0 cm/sec Ao mean P.5 mmHg Ao V2 VTI: 31.0 cm PI end-d rhys: 96.0 cm/sec TR max rhys: 315.1 cm/sec TR max P.7 mmHg ECHO/Echo Complete Interpretation Summary Left ventricular systolic function is normal. The estimated ejection fraction is 55 %. Mild concentric left ventricular hypertrophy. Trivial mitral valve insufficiency. Mild to moderate (1-2+) tricuspid valve insufficiency. Trivial pulmonic valve insufficiency. Calcified aortic root. Trivial pericardial effusion. There are no echocardiographic indications of cardiac tamponade. Right ventricular systolic pressure estimated to be 48 mmHg. There is evidence of diastolic dysfunction. Ordering Physician: Valerio Alvarado Referring Physician: Raúl Eric Performed By: Mary Mitchell, ELENI, RVT
--- NOTE | 2022-04-10 06:55 | NURSING ---
internal grinder tender notified of the need for double lumen picc, nurse will contact primary nurse with and eta at a later time
[2022-04-10 07:11] LABS: Hemoglobin A1c 9.2 % (3.8-5.6)
[2022-04-10 07:40] LABS: Bedside Glucose 245 mg/dL (74-106)
--- NOTE | 2022-04-10 07:44 | PCM.PN.HOSP ---
Subjective Subjective Seen and examined. BP low, on vasopressin, Levophed drip. Intermittent lethargy, confusion. Patient was oriented in the morning but when I saw the patient around 9 AM patient was lethargic and sleepy. Objective Data Objective Data Vital Signs: Vital Signs Temp Pulse Resp BP Pulse Ox O2 Del Method 97.0 F L 72 19 H 104/56 L 96 Room Air 04/10/22 07:00 04/10/22 07:00 04/10/22 07:00 04/10/22 07:00 04/10/22 07:42 04/10/22 07:42 Oxygen Delivery Method Room Air Weight: 191 lb 12.835 oz Body Mass Index (BMI) 29.0 Intake & Output: Intake and Output for Last 24 Hours 04/08/22 04/09/22 04/10/22 23:59 23:59 23:59 Intake Total 2049 3470.08 / 3470.08 Output Total 40 / 40 Balance 2049 3430.08 / 3430.08 Lab / Micro Data Result Diagrams: 04/10/22 03:58 04/10/22 03:58 Labs: Laboratory Results - last 24 hr 04/09/22 16:50: WBC 21.0 H, RBC 3.45 L, Hgb 9.6 L, Hct 30.8 L, MCV 89.3, MCH 27.8, MCHC 31.2 L, RDW Std Deviation 54.5 H, RDW Coeff of Fior 16.9 H, Plt Count 290, MPV 12.1 H, Immature Gran % (Auto) 1.000 H, Neut % (Auto) 94.1 H, Lymph % (Auto) 1.2 L, [place] % (Auto) 3.5, Eos % (Auto) 0.0, Baso % (Auto) 0.2, Absolute Neuts (auto) 19.8 H, Absolute Lymphs (auto) 0.26 L, Nucleated RBC % 0, Differential Comment SEE COMMENT, Platelet Estimate ADEQUATE, RBC Morphology N CHROM, Anisocytosis RARE, Macrocytosis RARE, ESR > 130 H 04/09/22 16:50: Sodium 127 L, Potassium 4.9, Chloride 99, Carbon Dioxide 18.0 L, Anion Gap 10, BUN 61 H, Creatinine 3.36 H, Estim Creat Clear Calc 17.50, Est GFR (MDRD) Af Amer 18 L, Est GFR (MDRD) Non-Af 15 L, BUN/Creatinine Ratio 18.2, Glucose 290 H, Calcium 8.6, Total Bilirubin 0.60, AST 57 H, ALT 45, Alkaline Phosphatase 208 H, C-React Prot Ext Range 430.00 H, Total Protein 6.8, Albumin 1.6 L, Globulin 5.2 H, Albumin/Globulin Ratio 0.3 L 04/09/22 16:50: Lactic Acid 2.0 04/09/22 16:50: Magnesium 1.3 L 04/09/22 17:12: PT 25.0 H, INR 2.3, APTT 40.6 H 04/09/22 18:40: Urine Color Yellow, Urine Clarity Cloudy, Urine pH 5.0, Ur Specific [place] 1.015, Urine Protein 500 H, Urine Glucose (UA) 1000 H, Urine Ketones Negative, Urine Occult Blood 150 H, Urine Nitrite Negative, Urine Bilirubin Negative, Urine Urobilinogen Normal, Ur Leukocyte Esterase Negative, Urine RBC 0 SEEN, Urine WBC 0-5 SEEN, Ur Squamous Epith Cells 0-5 SEEN, Amorphous Sediment 3+, Urine Bacteria 1+, Urine Mucus 0 SEEN 04/09/22 20:10: COVID-19 (LIUDMILA) Not Detected 04/09/22 20:51: S.aureus Protein A PCR POSITIVE H, MRSA (PCR) POSITIVE H 04/09/22 22:20: Procalcitonin 14.72 H 04/09/22 22:20: Lactic Acid 1.2 04/09/22 22:36: POC Glucose 236 H 04/10/22 00:05: POC Glucose 260 H 04/10/22 03:58: WBC 14.6 H, RBC 2.78 L, Hgb 7.6 L, Hct 25.1 L, MCV 90.3, MCH 27.3, MCHC 30.3 L, RDW Std Deviation 56.4 H, RDW Coeff of Fior 17.1 H, Plt Count 199, MPV 11.9, Immature Gran % (Auto) 2.100 H, Neut % (Auto) 89.2 H, Lymph % (Auto) 2.9 L, [place] % (Auto) 5.6, Eos % (Auto) 0.1, Baso % (Auto) 0.1, Absolute Neuts (auto) 13.0 H, Absolute Lymphs (auto) 0.43 L, Nucleated RBC % 0, Differential Comment SCANNED 04/10/22 03:58: Sodium 134 L, Potassium 4.8, Chloride 107, Carbon Dioxide 17.0 L, Anion Gap 10, BUN 60 H, Creatinine 3.08 H, Estim Creat Clear Calc 19.09, Est GFR (MDRD) Af Amer 20 L, Est GFR (MDRD) Non-Af 17 L, BUN/Creatinine Ratio 19.5, Glucose 238 H, Calcium 7.5 L, Magnesium 2.7 H, Total Bilirubin 0.60, AST 87 H, ALT 49, Alkaline Phosphatase 167 H, Total Protein 5.5 L, Albumin 1.2 L, Globulin 4.3 H, Albumin/Globulin Ratio 0.3 L 04/10/22 03:58: Hemoglobin A1c 9.2 H 04/10/22 05:37: PT Cancelled, INR Cancelled 04/10/22 06:10: PT 18.9 H, INR 1.6 04/10/22 07:35: POC Glucose 245 H Micro: Microbiology 04/09/22 16:50 Blood Culture (Wb) - Anticubital Right Blood Culture - Preliminary 04/09/22 17:12 Blood Culture (Wb) - Anticubital Right Blood Culture - Preliminary ABG Data ABG results: ABG 04/09/22 17:30 Specimen Type ART Sample Site R Radial pH 7.42 Bicarbonate Actual 17.1 L Total CO2 18 Base Excess -7 L O2 Saturation 90 L ABG pCO2 26.5 L ABG pO2 57 L Radiography Diagnostic Testing: Radiology Impression Brain CT 04/09/22 16:58 IMPRESSION: No evidence of acute intracranial or calvarial abnormality. No interval change. Electronically Signed: Arben Richards DO at 18:14 EDT , Chest X-Ray 04/09/22 18:06 IMPRESSION: There are no acute findings. Electronically Signed: Dallas Arndt MD at 18:40 EDT , Foot X-Ray 04/09/22 18:06 IMPRESSION: Soft tissue ulceration of the plantar surface of the lateral foot without definitive evidence for acute osteomyelitis at this time Electronically Signed: Jefe Cesar MD at 19:24 EDT , Foot X-Ray 04/09/22 18:06 IMPRESSION: Findings consistent with acute osteomyelitis and septic arthritis involving the cuboid and base of fourth and fifth metatarsals. Electronically Signed: Jefe Cesar MD at 19:22 EDT , Brain CT 04/10/22 01:38 IMPRESSION: 1. Chronic involutional changes of the brain. 2. No CT evidence of acute intracranial hemorrhage. Electronically Signed: Shirley Santos MD at 4:03 EDT Reading Location ID and State: [facility] / MD , Service support , Rhythm Strip Rhythm Strip: Sinus Tach Rate: 125 Ectopy: None Physical Exam Narrative Physical exam General: Confused, lethargic, sleepy, disoriented HEENT: Atraumatic, PERRLA, EOMI, Normocephalic Oral: No Gingival or Mucosal Lesions/ Ulcerations Neck: Supple, No JVD, Negative Carotid Bruits Lungs: Air entry diminished in bilateral lung bases. No crepitation/rhonchi Cardiovascular: Sinus rhythm, Normal S1, Normal S2, No murmurs Abdomen: Bowel Sounds Present, Soft, Non Tender, Non-Distended : No renal angle tenderness. No suprapubic tenderness. Extremities: Bilateral feet edema, Capillary Refill Less than 3 Seconds Skin: Scar tissue in the right foot, Charcot. Plantar ulceration, fifth metatarsal. Slight erythema on the dorsal lateral foot. Present on admission Musculoskeletal: Charcot joint of bilateral feet no Tenderness to Palpation of Joints or Extremities Neurological: DTR 2+/4, detailed neuro unobtainable. Disoriented Psych/Mental Status: Patient is sleepy and lethargy. Assessment & Plan Assessment/Plan (1) Cellulitis of both lower extremities: PLAN: Plan The patient is a 56 y/o F was brought to ED by EMS for fever and worsening of ulceration of feet with foul discharge, worsening of pedal edema, and redness. Patient also confused. #1. Septic shock due to MRSA osteomyelitis with bacteremia with acute sepsis related organ dysfunction evidenced by acute on chronic kidney disease, altered mental status. Lactic acid normal. Patient has bilateral lower leg cellulitis with infected diabetic ulcer mainly in left plantar aspect. Patient was last admitted in January 2022. Bone biopsy of fifth metatarsal of right foot in January 2022 showed osteomyelitis. At that time echo did not show evidence of endocarditis. Environmental Emergencies Planner consulted. PT OT. On IV vancomycin and cefepime patient last wound culture on 02/12/2022 shows corynebacterium stratum, 3+ and MRSA. Follow-up cultures. #2. Acute kidney injury, most likely prerenal on CKD stage IV: Admission BUN/Cr 61/3.36, prior baseline creatinine noted to be primarily 2-2.6. #3. Acute hyponatremia, hypovolemic: Admission sodium 127, baseline normal 1 36-144 range,l continue aggressive hydration, trend CMP. Serum sodium improved to 134. Bicarb 17, anion gap 10. Normal anion gap metabolic acidosis. #4. Diabetes mellitus type II complicated with Charcot foot, polyneuropathy: Accu-Chek insulin is covered with Humalog sliding scale. Patient on gabapentin. A1c 9.2. Started on scheduled Humalog insulin 10 units subcutaneous 3 times daily AC and Lantus dose increased. #5. CAD, ischemic cardiomyopathy: We will continue patient Plavix, statin, Coreg, not on MYLA inhibitor/ARB likely secondary to underlying renal disease. Will judiciously hydrate. 01/06/22 ECOH w/ EF 55%, normal diastolic function, trivial MVI, no significant valvular vegetations demonstrated. #6. Obesity: Weight loss and lifestyle changes encouraged. #7. Chronic anemia, AOCD: Admission hemoglobin 9.6, MCV normocytic range, baseline hemoglobin 8-9, stable, trend. #8. Hypertension: Continue home regimen including Coreg, isosorbide with hold parameters as needed, PRN hydralazine. #9. Hyperlipidemia: We will continue patient home statin therapy. #10. Restless leg syndrome: l continue patient home pramipexole regimen. #11. Anxiety and depression: continue patient home bupropion and hydroxyzine regimen as well as paroxetine given clinical improvement and currently mentating appropriately. #12. Chronic back pain: Patient with MRI of her spine in January 2022 with spinal stenosis with spinal surgery consultation with recommended continued conservative management secondary to significant high risk. Encourage positional changes, fall precautions, therapies consulted, cautiously continue patient low-dose Flexeril and chronic narcotic regimen as well as gabapentin given she is mentating at her baseline and blood pressures are appropriate at this time but low threshold to hold if becomes encephalopathic. #13. DVT prophylaxis: SCDs, heparin. #14. CODE STATUS: Discussed CODE status at length including difference between FULL code, DNR-CCA and DNR-CC status. Following discussions about the differences in these status, requested Full Code status. Microbiology Past 72 Hours 04/09/22 20:51 Wound - Left Foot Gram Stain - Final 04/09/22 20:51 Wound - Left Foot Wound Culture - Preliminary Mixed Gram Positive Organisms 04/09/22 18:40 Urine, Catheterized Urine Culture - Preliminary Culture exhibits no growth. 04/09/22 16:50 Blood Culture (Wb) - Anticubital Right Bacteria Detection (PCR) - Final Staphylococcus aureus mecA Resistance Marker 04/09/22 16:50 Blood Culture (Wb) - Anticubital Right Blood Culture - Preliminary 04/09/22 17:12 Blood Culture (Wb) - Anticubital Right Blood Culture - Preliminary Laboratory Results 04/09/22 16:50: WBC 21.0 H, RBC 3.45 L, Hgb 9.6 L, Hct 30.8 L, MCV 89.3, MCH 27.8, MCHC 31.2 L, RDW Std Deviation 54.5 H, RDW Coeff of Fior 16.9 H, Plt Count 290, MPV 12.1 H, Immature Gran % (Auto) 1.000 H, Neut % (Auto) 94.1 H, Lymph % (Auto) 1.2 L, [place] % (Auto) 3.5, Eos % (Auto) 0.0, Baso % (Auto) 0.2, Absolute Neuts (auto) 19.8 H, Absolute Lymphs (auto) 0.26 L, Nucleated RBC % 0, Differential Comment SEE COMMENT, Platelet Estimate ADEQUATE, RBC Morphology N CHROM, Anisocytosis RARE, Macrocytosis RARE, ESR > 130 H 04/09/22 16:50: Sodium 127 L, Potassium 4.9, Chloride 99, Carbon Dioxide 18.0 L, Anion Gap 10, BUN 61 H, Creatinine 3.36 H, Estim Creat Clear Calc 17.50, Est GFR (MDRD) Af Amer 18 L, Est GFR (MDRD) Non-Af 15 L, BUN/Creatinine Ratio 18.2, Glucose 290 H, Calcium 8.6, Total Bilirubin 0.60, AST 57 H, ALT 45, Alkaline Phosphatase 208 H, C-React Prot Ext Range 430.00 H, Total Protein 6.8, Albumin 1.6 L, Globulin 5.2 H, Albumin/Globulin Ratio 0.3 L 04/09/22 16:50: Lactic Acid 2.0 04/09/22 16:50: Magnesium 1.3 L 04/09/22 17:12: PT 25.0 H, INR 2.3, APTT 40.6 H 04/09/22 17:30: Specimen Type ART, Sample Site R Radial, pH 7.42, Bicarbonate Actual 17.1 L, Total CO2 18, Base Excess -7 L, O2 Saturation 90 L, ABG pCO2 26.5 L, ABG pO2 57 L 04/09/22 18:40: Urine Color Yellow, Urine Clarity Cloudy, Urine pH 5.0, Ur Specific [place] 1.015, Urine Protein 500 H, Urine Glucose (UA) 1000 H, Urine Ketones Negative, Urine Occult Blood 150 H, Urine Nitrite Negative, Urine Bilirubin Negative, Urine Urobilinogen Normal, Ur Leukocyte Esterase Negative, Urine RBC 0 SEEN, Urine WBC 0-5 SEEN, Ur Squamous Epith Cells 0-5 SEEN, Amorphous Sediment 3+, Urine Bacteria 1+, Urine Mucus 0 SEEN 04/09/22 20:10: COVID-19 (LIUDMILA) Not Detected 04/09/22 20:51: S.aureus Protein A PCR POSITIVE H, MRSA (PCR) POSITIVE H 04/09/22 22:20: Procalcitonin 14.72 H 04/09/22 22:20: Lactic Acid 1.2 04/09/22 22:36: POC Glucose 236 H 04/10/22 00:05: POC Glucose 260 H 04/10/22 03:58: WBC 14.6 H, RBC 2.78 L, Hgb 7.6 L, Hct 25.1 L, MCV 90.3, MCH 27.3, MCHC 30.3 L, RDW Std Deviation 56.4 H, RDW Coeff of Fior 17.1 H, Plt Count 199, MPV 11.9, Immature Gran % (Auto) 2.100 H, Neut % (Auto) 89.2 H, Lymph % (Auto) 2.9 L, [place] % (Auto) 5.6, Eos % (Auto) 0.1, Baso % (Auto) 0.1, Absolute Neuts (auto) 13.0 H, Absolute Lymphs (auto) 0.43 L, Nucleated RBC % 0, Differential Comment SCANNED 04/10/22 03:58: Sodium 134 L, Potassium 4.8, Chloride 107, Carbon Dioxide 17.0 L, Anion Gap 10, BUN 60 H, Creatinine 3.08 H, Estim Creat Clear Calc 19.09, Est GFR (MDRD) Af Amer 20 L, Est GFR (MDRD) Non-Af 17 L, BUN/Creatinine Ratio 19.5, Glucose 238 H, Calcium 7.5 L, Magnesium 2.7 H, Total Bilirubin 0.60, AST 87 H, ALT 49, Alkaline Phosphatase 167 H, Total Protein 5.5 L, Albumin 1.2 L, Globulin 4.3 H, Albumin/Globulin Ratio 0.3 L 04/10/22 03:58: Hemoglobin A1c 9.2 H 04/10/22 05:37: PT Cancelled, INR Cancelled 04/10/22 06:10: PT 18.9 H, INR 1.6 04/10/22 07:00: Blood Type O POSITIVE, Antibody Screen NEGATIVE 04/10/22 07:35: POC Glucose 245 H 04/10/22 11:37: POC Glucose 257 H Charges/Coding Visit Charges Inpatient E&M: 49945 Subs Hosp L3
[2022-04-10] MEDS: Insulin Glargine-YFGN 100 UNIT/ML Pen 30 UNIT SC (09:28)
[2022-04-10] MEDS: Insulin Lispro 100 UNIT/ML INSULN.PEN SC ×4 (09:28→17:27)
[2022-04-10] MEDS: Cefepime HCl 2 GM in 0.9% NS 100 ML Minibag Q8 IV (10:48)
[2022-04-10 11:40] LABS: Bedside Glucose 257 mg/dL (74-106)
[2022-04-10] MEDS: buPROPion (XL) 150 MG TABLET.XL PO (12:51)
[2022-04-10] MEDS: Clopidogrel Bisulfate 75 MG Tablet PO (12:51)
--- NOTE | 2022-04-10 13:45 | CASEMGMT ---
KELSIE IRELAND assessment: Face to Face with patient for initial transition planning/care coordination assessment. RN BEKA introduced self and role at [facility], pt voices understanding and consents to assessment. Pt is sitting up in bed in no distress on room air. Pt is A/Ox4 and answers questions appropriately. Care providers, pharmacy, and demographics verified. Presentation: Pt c/o fever, weakness, bilat foot wounds-recently left SNF Admitting dx: Sepsis, DM, bilat foot wounds, FELI PCP: [facility] Specialists: Fascione, podiatry; Markel, cardio; Laurent, nephro Preferred Pharmacy: [facility] Prescription Benefit: Yes Living Will/HPOA: Pt does not have LW/HPOA and declines AD info. LNOK: Trisha Hernandez, daughter Living Arrangements: Pt lives alone in 1 story home with 3 steps in and states has been having difficulty caring for self. Pt states she needs a new w/c as hers is broken. Transportation: Pt uses [facility] van or family for transportation and states no transportation concerns. DME/HHC: Pt has the following DME: w/c(broken), walker, BSC, shower bench and knee scooter. Pt states has been to [facility] in past and states was set up with [facility] when left [facility] about a week ago but does not know what company and states they did not do SOC. Pt has had [facility] in past. Pt states is active with palliative care. Pt states plans to go back home at discharge. Pt is on disability. Pt states states does not smoke cigarettes or drink ETOH. Pt voices no further concerns/needs. CM to follow for therapy notes, C company, and any further discharge planning/needs. Advised pt to ask for CM if any further questions/concerns/needs arise, voices understanding. Pt Goal: Home Plan: [place]ELSIE [place]
--- NOTE | 2022-04-10 14:17 | CON.PCM_ITS ---
Assessment & Plan Assessment/Plan (1) Septic shock: (2) Sepsis: (3) Cellulitis of both lower extremities: (4) Diabetic foot ulcers: (5) Delirium due to another medical condition: (6) FELI (acute kidney injury): (7) CRF (chronic renal failure): (8) Chronic kidney disease, stage 3b: (9) Charcot's joint, right ankle and foot: (10) Charcot's joint, left ankle and foot: (11) Non-pressure chronic ulcer of other part of left foot with fat layer exposed: (12) Diabetes mellitus with diabetic polyneuropathy: PLAN: Plan Patient seen and evaluated Cellulitis bilateral lower extremity, improving on IV abx. Patient has a plantar foot ulceration subfifth metatarsal measuring 3 cm x 2 cm with some slight maceration secondary to slight serosanguineous drainage. There is some erythema at the dorsal lateral aspect of the foot and cellulitis of the left lower extremity. There is no purulent drainage expressible from the site, no malodor. Radiographs of the left foot were reviewed and negative for oste omyelitis. She has history of MRSA infection, blood cultures 04/09/2022 positive for MRSA. Wound cultures demonstrate mixed gram positive organisms, final pending. Right foot demonstrates some localized rubor with significant swelling circumferentially of the midfoot. There are no open wounds to the right foot. No increased temperature to the right foot. I reviewed radiographs of the right foot and believe she is undergoing an acute Charcot arthropathy event. There is a fracture of the cuboid with dissociation of the fourth and fifth metatarsal base articulations with some increased sclerosis of the site. MRI would be recommended to rule out acute OM versus Charcot arthropathy of the Right foot. However with multiple organ involvement and poor renal function I would defer to medicine team for their recommendations on MRI. Patient on IV antibiotics with PICC line placed. WBC 21 at admission down to 14.6 currently. A1c 9.2%. Medical team currently managing patient while in ICU, this is greatly appreciated. Podiatry will continue to follow for local wound care for the left foot. Left foot ulcerative site painted with betadine and dressed with DSD. Will continue to closely monitor left foot for changes. Nursing to perform daily dressing changes to left foot. I am recommending nonweightbearing status to the right lower extremity. She may transfer from her left heel to wheelchair for ambulation assistance. Upon discharge I am recommending a fracture boot/Cam walker to be applied to the right lower extremity and a half-way facility for permanent placement as patient cannot care for herself at home. Please call for any questions or concerns Kayden Gann Jr. D.P.M. [facility] [phone] Note: [employer]flip speech recognition deckhand tuna boat software was used to create portions of this document. Sound-alike and misspelled words, as well as other deckhand tuna boat errors may be contained in the documentation. HPI Consult Data Date of Consult: 04/10/22 HPI Narrative HPI Narrative: DIONY ROCHA, is a 56 F who presents to [facility] by way of the ED for sepsis and elevated sofa score. Patient was consulted to podiatry for management of left lower extremity plantar ulceration. Patient had prior admission in December 2021 with surgical intervention on 01/08/2022 for abscess of the foot and cellulitis of the right lower extremity. Following surgical intervention and PICC line placement she was transferred to a half-way facility and following with me in office. During this time her right foot wounds had healed and left foot plantar ulceration was decreasing in size. She was discharged from her skilled facility a week ago and did not show for her office appointment on 04/05/2022. She was later admitted to the hospital on 04/09/2022. She was seen bedside following her PICC placement. She is awake but does seem a little confused. She tells me no one was caring for her feet since her discharge home. I discussed that she was supposed to return to the office to see me but she was confused about this. She denies any pain in her feet but admits to back pain. She states she would like a wheelchair to be able to get back and forth to the bathroom. She has no other further complaints today. [facility] Medical History Acquired varus deformity of left foot Acquired varus deformity of right foot Amputation foot, bilat Anemia due to chronic illness Anxiety and depression Atherosclerosis of [place] coronary artery of [place] heart without angina pectoris Back pain, chronic Bilateral edema of lower extremity Charcot's joint of right foot Chronic renal insufficiency Chronic ulcer of left foot with fat layer exposed Chronic ulcer of right foot with necrosis of muscle COVID-19 (08/28/21) Delayed wound healing Diabetes Diabetic foot ulcer associated with type 2 diabetes mellitus Diabetic infection of left foot Diabetic polyneuropathy Diabetic ulcer of right ankle Elevated troponin Essential (primary) hypertension GERD (gastroesophageal reflux disease) Hemoglobin A1c greater than 9.0% HLD (hyperlipidemia) Hyperparathyroidism, secondary renal Hypertension Iron deficiency anemia Ischemic cardiomyopathy Myocardial infarct Non-compliance Non-smoker Normocytic anemia NSTEMI (non-ST elevated myocardial infarction) (09/20/18) Obesity (BMI 30.0-34.9) Osteomyelitis of left foot RLS (restless legs syndrome) Stage 4 chronic kidney disease TIA (transient ischemic attack) 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 Ulcer of left foot with fat layer exposed Ulcer of left foot with muscle involvement without evidence of necrosis Ulcer of right lower extremity with fat layer exposed Home Medications atorvastatin 80 mg tablet 80 mg PO QHS cholesterol #90 tabs 11/30/19 [Rx Last Ta charline 04/07/22] isosorbide mononitrate 30 mg tablet,extended release 24 hr 30 mg PO DAILY BP 03/03/21 [History Last Taken 04/07/22] paroxetine HCl 20 mg tablet 20 mg PO QHS DEPRESSION 07/07/21 [History Last Taken 04/07/22] insulin glargine 100 unit/mL (3 mL) subcutaneous pen (Lantus Solostar U-100 Ins ulin) 30 unit subcut DAILY diabetes 11/16/21 [History Last Taken 04/07/22] insulin lispro 100 unit/mL subcutaneous pen (Humalog KwikPen (U-100) Insulin) 5 unit subcut LUNCH dm 11/16/21 [History Last Taken 04/07/22] cyclobenzaprine 5 mg tablet 5 mg PO QHS pain #0 tabs 12/23/21 [Rx Last Taken 04/07/22] gabapentin 300 mg capsule 300 mg BID nerve pain 12/23/21 [History Last Taken 04/07/22] bupropion HCl 150 mg 24 hr tablet, extended release 150 mg PO DAILY mood 02/04/22 [History Last Taken 04/07/22] carvedilol 12.5 mg tablet 12.5 mg PO BID heart 02/04/22 [History Last Taken 04/07/22] hydroxyzine HCl 25 mg tablet 25 mg PO TID PRN Anxiety 02/04/22 [History Last Taken 04/07/22] carvedilol 6.25 mg tablet 6.25 mg PO BID heart 04/09/22 [History Last Taken 04/07/22] chlorpheniramine-acetaminophen 2 mg-325 mg tablet (Coricidin HBP Cold and Flu) 2 tab PO Q4H cold 04/09/22 [History Last Taken 04/07/22] guaifenesin 600 mg tablet, extended release 12 hr 600 - 1,200 mg PO BID congestion 04/09/22 [History Last Taken 04/07/22] melatonin 5 mg tablet 5 mg PO QHS sleep 04/09/22 [History Last Taken 04/07/22] pramipexole 1.5 mg tablet 1.5 mg PO BID rls 04/09/22 [History Last Taken 04/07/22] Allergy/AdvReac Type Severity Reaction Status Date / Time Penicillins Allergy swelling Verified 04/09/22 16:37 in throat vancomycin Allergy Itching Verified 04/09/22 16:37 metronidazole AdvReac Nausea Verified 04/09/22 16:37 oxycodone [From OxyContin] AdvReac Shortness Verified 04/09/22 16:37 of breath Family History Mother Diabetes CVA (cerebral vascular accident) Brother CAD (coronary artery disease) CABG X 3 Cancer testicular Diabetes Brother CAD (coronary artery disease) CABG X3 Diabetes Brother CAD (coronary artery disease) Stents Diabetes Sister CAD (coronary artery disease) CABG x 3 CVA (cerebral vascular accident) Diabetes Surgical History History of bilateral carpal tunnel release History of History of coronary artery stent placement (12/31/20) History of foot surgery History of rotator cuff surgery Social History household members: none number of children: 2 current occupational status: disabled Smoking Status: Never smoker alcohol intake: never substance use type: does not use caffeine: Yes Type: carbonated beverages Number of servings: 2 ROS Constitutional Constitutional: Reports chills and fever(s); Denies headache(s) Eyes Eyes: Denies blindness, diplopia, erythema or eye pain ENT HEENT: Denies loss taste/smell, nasal congestion, nasal discharge or sore throat Cardiovascular Cardiovascular: Denies chest pain, claudication or dyspnea Respiratory/Chest Respiratory/Chest: Denies chest congestion, chest tightness, cough or dyspnea Gastrointestinal Gastrointestinal: Denies abdominal pain, constipation, diarrhea or vomiting Genitourinary Genitourinary: Denies dysuria, hematuria, urinary frequency or urinary hesitancy Musculoskeletal Musculoskeletal: Reports numbness and tingling; Denies extremity pain Integumentary Integumentary: Denies jaundice, lesions or rash Neurologic Neurologic: Reports numbness and tingling; Denies dizziness or seizures Psychiatric Psychiatric: Reports anxiety, confusion and depression Endocrine Endocrinology: Denies cold intolerance, heat intolerance, polydipsia or polyuria Hematologic/Lymphatic Hematologic/Lymphatic: Denies easy bleeding or easy bruising Allergic/Immunologic Allergic/Immunologic: Denies hives, urticaria or asthma Physical Exam Const alert, oriented x3 and well nourished HEENT normocephalic Eyes General Eye: normal appearance of both eyes Neck General: normal visual inspection Lymph Lymphatic: no lymphadenopathy noted and no lymphedema noted Resp normal respiratory effort Cardio regular rate and regular rhythm Extremity normal capillary refill and no calf tenderness Peripheral Pulses: Yes posterior tibial pulses present bilateral and dorsalis pedis pulses present bilateral Skin no rashes or lesions noted, skin turgor normal and no jaundice Skin Narrative: Left lower extremity: There is some slight erythema to the dorsal lateral foot with plantar ulceration subfifth metatarsal. Mild nonpitting lower extremity edema Right lower extremity: There is significant edema of the foot circumferentially secondary to fracture of the cuboid with Charcot arthropathy of the fourth and fifth metatarsal base articulations with the cuboid/lateral Lisfranc joint. There is some slight rubor to the dorsal lateral foot but no increased temperature about the region. No open wounds to the right lower extremity. General Skin Exam: erythema Wound Narrative: Right lower extremity: No open wounds. No purulent drainage, no malodor, no erythema. Left lower extremity: Slight erythema dorsal lateral foot. Plantar ulceration subfifth metatarsal stump measures 3 cm x 2 cm with beefy red granular base and some slight surrounding skin maceration secondary to seeping wound fluid. There is some slight serosanguineous drainage. No purulent drainage expressible from wound site, no malodor. Neuro oriented x3 and moves all extremities Lab / Micro Data Result Diagrams: 04/10/22 03:58 04/10/22 03:58 Labs: Laboratory Results - last 24 hr 04/09/22 16:50: WBC 21.0 H, RBC 3.45 L, Hgb 9.6 L, Hct 30.8 L, MCV 89.3, MCH 27.8, MCHC 31.2 L, RDW Std Deviation 54.5 H, RDW Coeff of Fior 16.9 H, Plt Count 290, MPV 12.1 H, Immature Gran % (Auto) 1.000 H, Neut % (Auto) 94.1 H, Lymph % (Auto) 1.2 L, Miller % (Auto) 3.5, Eos % (Auto) 0.0, Baso % (Auto) 0.2, Absolute Neuts (auto) 19.8 H, Absolute Lymphs (auto) 0.26 L, Nucleated RBC % 0, Differential Comment SEE COMMENT, Platelet Estimate ADEQUATE, RBC Morphology N CHROM, Anisocytosis RARE, Macrocytosis RARE, ESR > 130 H 04/09/22 16:50: Sodium 127 L, Potassium 4.9, Chloride 99, Carbon Dioxide 18.0 L, Anion Gap 10, BUN 61 H, Creatinine 3.36 H, Estim Creat Clear Calc 17.50, Est GFR (MDRD) Af Amer 18 L, Est GFR (MDRD) Non-Af 15 L, BUN/Creatinine Ratio 18.2, Glucose 290 H, Calcium 8.6, Total Bilirubin 0.60, AST 57 H, ALT 45, Alkaline Phosphatase 208 H, C-React Prot Ext Range 430.00 H, Total Protein 6.8, Albumin 1.6 L, Globulin 5.2 H, Albumin/Globulin Ratio 0.3 L 04/09/22 16:50: Lactic Acid 2.0 04/09/22 16:50: Magnesium 1.3 L 04/09/22 17:12: PT 25.0 H, INR 2.3, APTT 40.6 H 04/09/22 18:40: Urine Color Yellow, Urine Clarity Cloudy, Urine pH 5.0, Ur Specific [place] 1.015, Urine Protein 500 H, Urine Glucose (UA) 1000 H, Urine Ketones Negative, Urine Occult Blood 150 H, Urine Nitrite Negative, Urine Bilirubin Negative, Urine Urobilinogen Normal, Ur Leukocyte Esterase Negative, Urine RBC 0 SEEN, Urine WBC 0-5 SEEN, Ur Squamous Epith Cells 0-5 SEEN, Amorphou s Sediment 3+, Urine Bacteria 1+, Urine Mucus 0 SEEN 04/09/22 20:10: COVID-19 (LIUDMILA) Not Detected 04/09/22 20:51: S.aureus Protein A PCR POSITIVE H, MRSA (PCR) POSITIVE H 04/09/22 22:20: Procalcitonin 14.72 H 04/09/22 22:20: Lactic Acid 1.2 04/09/22 22:36: POC Glucose 236 H 04/10/22 00:05: POC Glucose 260 H 04/10/22 03:58: WBC 14.6 H, RBC 2.78 L, Hgb 7.6 L, Hct 25.1 L, MCV 90.3, MCH 27.3, MCHC 30.3 L, RDW Std Deviation 56.4 H, RDW Coeff of Fior 17.1 H, Plt Count 199, MPV 11.9, Immature Gran % (Auto) 2.100 H, Neut % (Auto) 89.2 H, Lymph % (Auto) 2.9 L, Miller % (Auto) 5.6, Eos % (Auto) 0.1, Baso % (Auto) 0.1, Absolute Neuts (auto) 13.0 H, Absolute Lymphs (auto) 0.43 L, Nucleated RBC % 0, Differential Comment SCANNED 04/10/22 03:58: Sodium 134 L, Potassium 4.8, Chloride 107, Carbon Dioxide 17.0 L , Anion Gap 10, BUN 60 H, Creatinine 3.08 H, Estim Creat Clear Calc 19.09, Est GFR (MDRD) Af Amer 20 L, Est GFR (MDRD) Non-Af 17 L, BUN/Creatinine Ratio 19.5, Glucose 238 H, Calcium 7.5 L, Magnesium 2.7 H, Total Bilirubin 0.60, AST 87 H, ALT 49, Alkaline Phosphatase 167 H, Total Protein 5.5 L, Albumin 1.2 L, Globulin 4.3 H, Albumin/Globulin Ratio 0.3 L 04/10/22 03:58: Hemoglobin A1c 9.2 H 04/10/22 05:37: PT Cancelled, INR Cancelled 04/10/22 06:10: PT 18.9 H, INR 1.6 04/10/22 07:00: Blood Type O POSITIVE, Antibody Screen NEGATIVE 04/10/22 07:35: POC Glucose 245 H 04/10/22 11:37: POC Glucose 257 H Micro: Microbiology 04/09/22 20:51 Wound - Left Foot Gram Stain - Final 04/09/22 20:51 Wound - Left Foot Wound Culture - Preliminary Mixed Gram Positive Organisms 04/09/22 18:40 Urine, Catheterized Urine Culture - Preliminary Culture exhibits no growth. 04/09/22 16:50 Blood Culture (Wb) - Anticubital Right Bacteria Detection (PCR) - Final Staphylococcus aureus mecA Resistance Marker 04/09/22 16:50 Blood Culture (Wb) - Anticubital Right Blood Culture - Preliminary 04/09/22 17:12 Blood Culture (Wb) - Anticubital Right Blood Culture - Prelim inary ABG Data ABG results: ABG 04/09/22 17:30 Specimen Type ART Sample Site R Radial pH 7.42 Bicarbonate Actual 17.1 L Total CO2 18 Base Excess -7 L O2 Saturation 90 L ABG pCO2 26.5 L ABG pO2 57 L Rhythm Strip Rhythm Strip: Sinus Tach Rate: 125 Ectopy: None Radiology Impression Brain CT 04/09/22 16:58 IMPRESSION: No evidence of acute intracranial or calvarial abnormality. No interval change. Electronically Signed: Arben Richards DO at 18:14 EDT , Chest X-Ray 04/09/22 18:06 IMPRESSION: There are no acute findings. Electronically Signed: Dallas Arndt MD at 18:40 EDT , Foot X-Ray 04/09/22 18:06 IMPRESSION: Soft tissue ulceration of the plantar surface of the lateral foot without definitive evidence for acute osteomyelitis at this time Electronically Signed: Jefe Cesar MD at 19:24 EDT , Foot X-Ray 04/09/22 18:06 IMPRESSION: Findings consistent with acute osteomyelitis and septic arthritis involving the cuboid and base of fourth and fifth metatarsals. Electronically Signed: Jefe Cesar MD at 19:22 EDT , Brain CT 04/10/22 01:38 IMPRESSION: 1. Chronic involutional changes of the brain. 2. No CT evidence of acute intracranial hemorrhage. Electronically Signed: Shirley Santos MD at 4:03 EDT , Echocardiogram 04/10/22 06:33 Interpretation Summary Left ventricular systolic function is normal. The estimated ejection fraction is 55 %. Mild concentric left ventricular hypertrophy. Trivial mitral valve insufficiency. Mild to moderate (1-2+) tricuspid valve insufficiency. Trivial pulmonic valve insufficiency. Calcified aortic root. Trivial pericardial effusion. There are no echocardiographic indications of cardiac tamponade. Right ventricular systolic pressure estimated to be 48 mmHg. There is evidence of diastolic dysfunction. Ordering Physician: Valerio Alvarado Referring Physician: Raúl Eric Performed By: Mary Mitchell, RDCS, RVT
[2022-04-10] MEDS: Acetaminophen 325 MG Tablet 650 MG PO ×2 (16:31→23:05)
[2022-04-10 17:30] LABS: Bedside Glucose 205 mg/dL (74-106)
[2022-04-10] MEDS: Pramipexole Di-HCl 1 MG Tablet 1.5 MG PO ×2 (17:35→23:06)
[2022-04-10] MEDS: Insulin Lispro 100 UNIT/ML INSULN.PEN 10 UNIT SC (18:00)
[2022-04-10] MEDS: Ondansetron 4 MG/2 ML Vial IV (22:22)
[2022-04-10] MEDS: Paroxetine 20 MG Tablet PO (23:05)
[2022-04-10 23:20] LABS: Bedside Glucose 114 mg/dL (74-106)
[2022-04-11] VITALS (42 sets, daily range): BP systolic 70–136; BP diastolic 48–90; PULSE 62–104; RESP 10–30; TEMP 35.4–38.4; O2SAT 91–977
[2022-04-11 03:49] LABS: Absolute Lymphocyte Count 0.42 X10^3/uL (0.83-4.51); Absolute Neutrophil Count 13.3 X10^3/uL (2.0-7.7); Basophil# 0.01 X10^3/uL; Basophil% 0.1 % (0-1); Eosinophil# 0.08 X10^3/uL; Eosinophils% 0.5 % (0-5); Hematocrit 23.4 % (37-47); Hemoglobin 7.3 g/dL (12.0-15.0); Lymphocyte # 0.42 X10^3/ul (0.83-4.51); Lymphocyte % 2.9 % (19-41); Mean Corp Hgb Conc 31.2 g/dL (32-36); Mean Corpuscular Hgb 27.5 pg (27.0-32.0); Mean Corpuscular Volume 88.3 fL (81-99); Monocyte# 0.62 X10^3/uL; Monocyte% 4.3 % (0-10); NRBC Flagged by Analyzer 0 % (0-5); Neutrophil # 13.34 X10^3/uL (2.7-7.7); Neutrophil % 91.6 % (47-70); POSITIVE COUNT YES; POSITIVE DIFFERENTIAL YES; POSITIVE MORPHOLOGY YES; Platelet Count 214 K/mm3 (150-450); RBC Distribution Width SD 54.5 fl (35.1-43.9); Red Blood Count 2.65 M/mm3 (4.2-5.4); White Blood Count 14.6 K/mm3 (4.4-11.0)
[2022-04-11 04:09] LABS: Differential Indicated SCAN CRITERIA MET
[2022-04-11 04:21] LABS: Anion Gap 11 (5-15); BUN 73 mg/dL (7-18); BUN/Creat Ratio 21.1 RATIO (10-20); Calcium,Total 7.8 mg/dL (8.5-10.1); Chloride 109 mmol/L (98-107); Creatinine, Serum 3.46 mg/dL (0.55-1.02); EST Glomerular Filtration Rate 15 mL/min (>60); Est Glom Filt Rate - Afr Amer 18 mL/min (>60); Glucose 166 mg/dL (74-106); Magnesium 2.3 mg/dL (1.6-2.6); Phosphorus 3.6 mg/dL (2.5-4.9); Potassium 4.6 mmol/L (3.5-5.1); Sodium Level 135 mmol/L (136-145)
[2022-04-11 04:26] LABS: Differential Comment SCANNED; Platelet Estimate ADEQUATE (ADEQ)
--- NOTE | 2022-04-11 05:55 | PN.CC_ITS ---
Assessment & Plan Assessment/Plan (1) Septic shock: PLAN: Plan RECOMMENDATIONS: 1. Continue Levophed to maintain a mean arterial pressure at or above 65 mmHg. 2. Continue antimicrobials as ordered. 3. Monitor blood counts daily and transfuse if hemoglobin drops below 7 g/dL. 4. Obtain nephrology consultation. 5. Avoid sedating medications for now. 6. Continue Protonix daily. IMPRESSIONS: 1. Septic shock The patient presented to the hospital with sepsis due to MRSA osteomyelitis/bacteremia with acute sepsis related organ dysfunction as evidenced by acute on chronic kidney disease and altered mentation. Ultimately, the patient developed fluid refractory hypotension, which necessitated the initiation of vasopressor support. Plan to continue antimicrobials as ordered. Podiatry is following to assist with medical management. Consider MRI of lower extremities per recommendations. In the interim, continue Levophed to maintain a mean arterial pressure at or above 65 mmHg. Echocardiogram was unremarkable for the presence of valvular vegetations. 2. Acute on chronic kidney disease Likely prerenal/ischemic ATN in the setting of #1. Continue to monitor urine output. In light of the patient's worsening renal function, will obtain a nephrology consultation today. Continue to avoid nephrotoxic medications. 3. Encephalopathy Likely metabolic versus polypharmacy in etiology. Continue to hold sedating medications for now. CT head was unremarkable. ABG was appropriate. 4. Anemia The patient presented with acute on chronic anemia. Hemoglobin this morning was noted to be 7.3 g/dL. Plan to monitor blood counts and transfuse if hemoglobin drops below 7 g/dL. Continue Protonix. 5. History of coronary artery disease/anemia/hypertension/diabetes mellitus/hyperlipidemia/anxiety/depression/chronic pain syndrome Complicates care, management, recovery and prognosis. Recommend holding home Fl exeril, Neurontin, hydroxyzine and melatonin, pending improvement in mental state. In addition, continue to hold home antihypertensives. TIME: 34 minutes of critical care time, independent of procedures, was spent addressing the patient's septic shock, acute on chronic kidney disease, encephalopathy, anemia, review of all data and collaboration with the care team. Subjective Subjective The patient was seen and examined at the bedside this morning. Events from the last 24 hours have been reviewed. The patient currently has a low-grade fever with a T-max overnight of 101.1 ?F. The patient remains on Levophed at 4 mcg/min to maintain hemodynamic stability. She is currently documented to be overall net +7.9 L for the hospitalization. Hemoglobin this morning remains stable, but low, at 7.3 g/dL. Creatinine remains elevated at 3.46. Urine output has dropped off overnight. The patient is quite confused and restless. Objective Data Objective Data The patient's most recent lab work, culture data and imaging studies have all been personally reviewed. Surface echocardiogram demonstrated normal LV size with an ejection fraction of 55%. Right ventricular systolic pressure was estimated to be 48 mmHg. No valvular vegetations or masses were noted. Blood cultures dated April 09 were positive for MRSA. Vital Signs: Vital Signs Temp Pulse Resp BP Pulse Ox O2 Del Method 100.6 F H 93 23 H 92/64 98 Room Air 04/11/22 04:00 04/11/22 04:00 04/11/22 04:00 04/11/22 04:00 04/11/22 04:00 04/11/22 04:00 Oxygen Delivery Method Room Air Weight: 203 lb 11.314 oz Body Mass Index (BMI) 29.0 Intake & Output: Intake and Output for Last 24 Hours 04/09/22 04/10/22 04/11/22 23:59 23:59 23:59 Intake Total 2049 6048.77 / 6058.17 43.69 / 43.69 Output Total 215 / 215 Balance 2049 / 2289 5833.77 / 5843.17 43.69 / 43.69 Lab / Micro Data Attestation: I reviewed the patient's lab results. Result Diagrams: 04/11/22 03:40 04/11/22 03:40 Labs: Laboratory Results - last 24 hr 04/10/22 03:58: Hemoglobin A1c 9.2 H 04/10/22 05:37: PT Cancelled, INR Cancelled 04/10/22 06:10: PT 18.9 H, INR 1.6 04/10/22 07:00: Blood Type O POSITIVE, Antibody Screen NEGATIVE 04/10/22 07:35: POC Glucose 245 H 04/10/22 11:37: POC Glucose 257 H 04/10/22 17:26: POC Glucose 205 H 04/10/22 23:03: POC Glucose 114 H 04/11/22 03:40: WBC 14.6 H, RBC 2.65 L, Hgb 7.3 L, Hct 23.4 L, MCV 88.3, MCH 27.5, MCHC 31.2 L, RDW Std Deviation 54.5 H, RDW Coeff of Fior 17.0 H, Plt Count 214, MPV 12.0, Immature Gran % (Auto) 0.600, Neut % (Auto) 91.6 H, Lymph % (Auto) 2.9 L, [place] % (Auto) 4.3, Eos % (Auto) 0.5, Baso % (Auto) 0.1, Absolute Neuts (auto) 13.3 H, Absolute Lymphs (auto) 0.42 L, Nucleated RBC % 0, Differential Comment SCANNED, Platelet Estimate ADEQUATE 04/11/22 03:40: Sodium 135 L, Potassium 4.6, Chloride 109 H, Carbon Dioxide 15.0 L, Anion Gap 11, BUN 73 H, Creatinine 3.46 H, Estim Creat Clear Calc 17.00, Est GFR (MDRD) Af Amer 18 L, Est GFR (MDRD) Non-Af 15 L, BUN/Creatinine Ratio 21.1 H , Glucose 166 H, Calcium 7.8 L, Phosphorus 3.6, Magnesium 2.3 Micro: Microbiology 04/09/22 20:51 Wound - Left Foot Gram Stain - Final 04/09/22 20:51 Wound - Left Foot Wound Culture - Preliminary Mixed Gram Positive Organisms 04/09/22 18:40 Urine, Catheterized Urine Culture - Preliminary Culture exhibits no growth. 04/09/22 16:50 Blood Culture (Wb) - Anticubital Right Bacteria Detection (PCR) - Final Staphylococcus aureus mecA Resistance Marker 04/09/22 16:50 Blood Culture (Wb) - Anticubital Right Blood Culture - Preliminary 04/09/22 17:12 Blood Culture (Wb) - Anticubital Right Blood Culture - Preliminary Radiography Diagnostic Testing: Radiology Impression Echocardiogram 04/10/22 06:33 Interpretation Summary Left ventricular systolic function is normal. The estimated ejection fraction is 55 %. Mild concentric left ventricular hypertrophy. Trivial mitral valve insufficiency. Mild to moderate (1-2+) tricuspid valve insufficiency. Trivial pulmonic valve insufficiency. Calcified aortic root. Trivial pericardial effusion. There are no echocardiographic indications of cardiac tamponade. Right ventricular systolic pressure estimated to be 48 mmHg. There is evidence of diastolic dysfunction. Ordering Physician: Valerio Alvarado Referring Physician: Raúl Eric Performed By: Mary Mitchell RDCS, RVT Rhythm Strip Rhythm Strip: Sinus Tach Rate: 125 Ectopy: None Physical Exam Const Constitutional Narrative: Alert but notably confused and restless in bed. General Appearance: ill appearing HEENT normocephalic and head/scalp atraumatic Eyes PERRL and EOMs intact bilaterally Neck supple General: trachea midline Chest inspection of chest normal Resp normal respiratory effort Effort and Inspection: tachypneic Auscultation: Negative for rales, rhonchi or wheezes Cardio regular rate and regular rhythm GI normal to inspection, nondistended, normoactive bowel sounds Extremity General Extremity: edema bilateral lower extremity Skin Skin Narrative: Wrapped lower extremities. General Skin Exam: erythema Neuro moves all extremities and no focal motor deficits Psych Activity / Motor Behavior: restless Charges/Coding Procedures Hospitalists Procedures: 11856 Critial Care 1st Hr
[2022-04-11] MEDS: TITRATION PARAMETER CHANGE 1 EACH IV (07:17)
[2022-04-11] MEDS: Pramipexole Di-HCl 1 MG Tablet 1.5 MG PO ×2 (08:37→21:29)
[2022-04-11] MEDS: buPROPion (XL) 150 MG TABLET.XL PO (08:37)
[2022-04-11] MEDS: Clopidogrel Bisulfate 75 MG Tablet PO (08:38)
[2022-04-11] MEDS: 0.9% Saline Lock 10 ML Syringe IV ×5 (08:44→21:35)
--- NOTE | 2022-04-11 09:36 | PCM.PN.HOSP ---
Subjective Subjective It is once a day follow-up for septic shock with encephalopathy. The patient is very confused disoriented, restless agitated. T-max 101.1 Fahrenheit BUN/creatinine went up, infantry indirect fire crewmember is consulted Positive fluid balance about 9 L Oliguria 100 mL since midnight. 215 ML yesterday Objective Data Objective Data Vital Signs: Vital Signs Temp Pulse Resp BP Pulse Ox O2 Del Method 98.9 F 88 29 H 113/57 L 98 Room Air 04/11/22 08:00 04/11/22 08:00 04/11/22 08:00 04/11/22 08:00 04/11/22 08:00 04/11/22 08:00 Oxygen Delivery Method Room Air Weight: 203 lb 11.314 oz Body Mass Index (BMI) 29.0 Intake & Output: Intake and Output for Last 24 Hours 04/09/22 04/10/22 04/11/22 23:59 23:59 23:59 Intake Total 2049 / 0 6048.77 / 6058.17 1328.44 / 1328.44 Output Total 215 / 215 100 / 100 Balance 2049 / 2290 5833.77 / 5843.17 1228.44 / 1228.44 Lab / Micro Data Result Diagrams: 04/11/22 03:40 04/11/22 03:40 Labs: Laboratory Results - last 24 hr 04/10/22 11:37: POC Glucose 257 H 04/10/22 17:26: POC Glucose 205 H 04/10/22 23:03: POC Glucose 114 H 04/11/22 03:40: WBC 14.6 H, RBC 2.65 L, Hgb 7.3 L, Hct 23.4 L, MCV 88.3, MCH 27.5, MCHC 31.2 L, RDW Std Deviation 54.5 H, RDW Coeff of Fior 17.0 H, Plt Count 214, MPV 12.0, Immature Gran % (Auto) 0.600, Neut % (Auto) 91.6 H, Lymph % (Auto) 2.9 L, [place] % (Auto) 4.3, Eos % (Auto) 0.5, Baso % (Auto) 0.1, Absolute Neuts (auto) 13.3 H, Absolute Lymphs (auto) 0.42 L, Nucleated RBC % 0, Differential Comment SCANNED, Platelet Estimate ADEQUATE 04/11/22 03:40: Sodium 135 L, Potassium 4.6, Chloride 109 H, Carbon Dioxide 15.0 L, Anion Gap 11, BUN 73 H, Creatinine 3.46 H, Estim Creat Clear Calc 17.00, Est GFR (MDRD) Af Amer 18 L, Est GFR (MDRD) Non-Af 15 L, BUN/Creatinine Ratio 21.1 H, Glucose 166 H, Calcium 7.8 L, Phosphorus 3.6, Magnesium 2.3 Micro: Microbiology 04/09/22 17:12 Blood Culture (Wb) - Anticubital Right Blood Culture - Preliminary Staphylococcus aureus 04/09/22 16:50 Blood Culture (Wb) - Anticubital Right Bacteria Detection (PCR) - Final Staphylococcus aureus mecA Resistance Marker 04/09/22 16:50 Blood Culture (Wb) - Anticubital Right Blood Culture - Preliminary Staphylococcus aureus 04/09/22 20:51 Wound - Left Foot Gram Stain - Final 04/09/22 20:51 Wound - Left Foot Wound Culture - Preliminary Mixed Gram Positive Organisms 04/09/22 18:40 Urine, Catheterized Urine Culture - Preliminary Culture exhibits no growth. Radiography Diagnostic Testing: Radiology Impression Echocardiogram 04/10/22 06:33 Interpretation Summary Left ventricular systolic function is normal. The estimated ejection fraction is 55 %. Mild concentric left ventricular hypertrophy. Trivial mitral valve insufficiency. Mild to moderate (1-2+) tricuspid valve insufficiency. Trivial pulmonic valve insufficiency. Calcified aortic root. Trivial pericardial effusion. There are no echocardiographic indications of cardiac tamponade. Right ventricular systolic pressure estimated to be 48 mmHg. There is evidence of diastolic dysfunction. Ordering Physician: Valerio Alvarado Referring Physician: Raúl Eric Performed By: Mary Mitchell, ELENI, RVT Rhythm Strip Rhythm Strip: Sinus Tach Rate: 125 Ectopy: None Physical Exam Narrative Physical exam General: Confused, agitated disoriented HEENT: Atraumatic, PERRLA, EOMI, Normocephalic Oral: No Gingival or Mucosal Lesions/ Ulcerations Neck: Supple, No JVD, Negative Carotid Bruits Lungs: Air entry diminished in bilateral lung bases. No crepitation/rhonchi Cardiovascular: Sinus rhythm, Normal S1, Normal S2, No murmurs Abdomen: Bowel Sounds Present, Soft, Non Tender, Non-Distended : No renal angle tenderness. No suprapubic tenderness. Extremities: Bilateral feet edema, Capillary Refill Less than 3 Seconds Skin: Scar tissue in the right foot, Charcot. Plantar ulceration, fifth metatarsal. Slight erythema on the dorsal lateral foot. Present on admission Musculoskeletal: Charcot joint of bilateral feet. No Tenderness to Palpation of Joints or Extremities Neurological: DTR 2+/4, detailed neuro unobtainable. Disoriented Psych/Mental Status: Agitated Assessment & Plan Assessment/Plan (1) Cellulitis of both lower extremities: PLAN: Plan The patient is a 56 y/o F was brought to ED by EMS for fever and worsening of ulceration of feet with foul discharge, worsening of pedal edema, and redness. Patient also confused. #1. Septic shock due to MRSA osteomyelitis with bacteremia with acute sepsis related organ dysfunction evidenced by acute on chronic kidney disease, altered mental status. Lactic acid normal. Patient has bilateral lower leg cellulitis with infected diabetic ulcer mainly in left plantar aspect. Patient was last admitted in January 2022. Bone biopsy of fifth metatarsal of right foot in January 2022 showed osteomyelitis. At that time echo did not show evidence of endocarditis. Rendering Equipment Tender consulted. PT OT. On IV vancomycin and cefepime patient last wound culture on 02/12/2022 shows corynebacterium stratum, 3+ and MRSA. Follow-up cultures. 04/11: Blood cultures positive of MRSA. Patient on Levophed 4 mics per minute. Continue IV antibiotic vancomycin and cefepime. #2. Acute kidney injury, most likely prerenal on CKD stage IV: Admission BUN/Cr 61/3.36, prior baseline creatinine noted to be primarily 2-2.6. 04/11: Oliguria with positive fluid balance. Collection Support Specialist is consulted. #3. Acute hyponatremia, hypovolemic: Admission sodium 127, baseline normal 136-144 range,l continue aggressive hydration, trend CMP. Serum sodium improved to 134. Bicarb 17, anion gap 10. Normal anion gap metabolic acidosis. #4. Diabetes mellitus type II complicated with Charcot foot, polyneuropathy: Accu-Chek insulin is covered with Humalog sliding scale. Patient on gabapentin. A1c 9.2. Started on scheduled Humalog insulin 10 units subcutaneous 3 times daily AC and Lantus dose increased. 04/11: Glucose is running low. Holding scheduled insulin . Patient not having adequate oral intake #5. CAD, ischemic cardiomyopathy: We will continue patient Plavix, statin, Coreg, not on MYLA inhibitor/ARB likely secondary to underlying renal disease. Will judiciously hydrate. 01/06/22 ECOH w/ EF 55%, normal diastolic function, trivial MVI, no significant valvular vegetations demonstrated. 04/11: EF 55%, mild concentric LVH, mild 2+ TR. RVSP 48 mmHg consistent with chronic HFpEF #6. Obesity: Weight loss and lifestyle changes encouraged. #7. Chronic anemia, AOCD: Admission hemoglobin 9.6, MCV normocytic range, baseline hemoglobin 8-9, stable, trend. 04/11: Hemoglobin dropped to 7.3. Hold Plavix. H&H in the evening #8. Hypertension: Continue home regimen including Coreg, isosorbide with hold parameters as needed, PRN hydralazine. #9. Hyperlipidemia: We will continue patient home statin therapy. #10. Restless leg syndrome: l continue patient home pramipexole regimen. #11. Anxiety and depression: continue patient home bupropion and hydroxyzine regimen as well as paroxetine given clinical improvement and currently mentating appropriately. #12. Chronic back pain: Patient with MRI of her spine in January 2022 with spinal stenosis with spinal surgery consultation with recommended continued conservative management secondary to significant high risk. Encourage positional changes, fall precautions, therapies consulted, cautiously continue patient low-dose Flexeril and chronic narcotic regimen as well as gabapentin given she is mentating at her baseline and blood pressures are appropriate at this time but low threshold to hold if becomes encephalopathic. #13. DVT prophylaxis: SCDs, heparin. #14. CODE STATUS: Discussed CODE status at length including difference between FULL code, DNR-CCA and DNR-CC status. Following discussions about the differences in these status, requested Full Code status. Total time of the visit including total time spent in counseling or coordination of care, (more than 50% of the total time, spent in obtaining medical information from nurses and other ancillary care providers,explaining to the patient about labs, imaging, diagnosis and management), , review of labs and imaging is 45 minutes. Microbiology Past 72 Hours 04/09/22 17:12 Blood Culture (Wb) - Anticubital Right Blood Culture - Preliminary Staphylococcus aureus 04/09/22 16:50 Blood Culture (Wb) - Anticubital Right Bacteria Detection (PCR) - Final Staphylococcus aureus mecA Resistance Marker 04/09/22 16:50 Blood Culture (Wb) - Anticubital Right Blood Culture - Preliminary Staphylococcus aureus 04/09/22 20:51 Wound - Left Foot Gram Stain - Final 04/09/22 20:51 Wound - Left Foot Wound Culture - Preliminary Mixed Gram Positive Organisms 04/09/22 18:40 Urine, Catheterized Urine Culture - Preliminary Culture exhibits no growth. Laboratory Results 04/10/22 11:37: POC Glucose 257 H 04/10/22 17:26: POC Glucose 205 H 04/10/22 23:03: POC Glucose 114 H 04/11/22 03:40: WBC 14.6 H, RBC 2.65 L, Hgb 7.3 L, Hct 23.4 L, MCV 88.3, MCH 27.5, MCHC 31.2 L, RDW Std Deviation 54.5 H, RDW Coeff of Fior 17.0 H, Plt Count 214, MPV 12.0, Immature Gran % (Auto) 0.600, Neut % (Auto) 91.6 H, Lymph % (Auto) 2.9 L, [place] % (Auto) 4.3, Eos % (Auto) 0.5, Baso % (Auto) 0.1, Absolute Neuts (auto) 13.3 H, Absolute Lymphs (auto) 0.42 L, Nucleated RBC % 0, Differential Comment SCANNED, Platelet Estimate ADEQUATE 04/11/22 03:40: Sodium 135 L, Potassium 4.6, Chloride 109 H, Carbon Dioxide 15.0 L, Anion Gap 11, BUN 73 H, Creatinine 3.46 H, Estim Creat Clear Calc 17.00, Est GFR (MDRD) Af Amer 18 L, Est GFR (MDRD) Non-Af 15 L, BUN/Creatinine Ratio 21.1 H, Glucose 166 H, Calcium 7.8 L, Phosphorus 3.6, Magnesium 2.3 Charges/Coding Visit Charges Inpatient E&M: 76499 Subs Hosp L3
--- NOTE | 2022-04-11 09:48 | NURSING ---
Very restless, constantly thrashing in bed and pulling at lines. Multiple attempts to re-orient and reposition in bed for comfort w/ no improvement. Pt keeps yelling out profanities but unable to state what is wrong. Denies pain. MD's notified.
[2022-04-11] MEDS: Cefepime HCl 2 GM in 0.9% NS 100 ML Minibag Q8 IV (09:54)
[2022-04-11] MEDS: Haloperidol Lactate 5 MG/ML Vial 2 MG IV (10:25)
[2022-04-11 10:46] LABS: Bedside Glucose 142 mg/dL (74-106)
[2022-04-11 10:51] LABS: Bedside Glucose 146 mg/dL (74-106)
--- NOTE | 2022-04-11 11:15 | NURSING ---
Haldol given w/ no effect. Continues to be very restless and stating her legs are very painful and she can't take it anymore. Rates pain 10/10. Has chronic pain issues and takes PRN pain meds at home. notified.
--- NOTE | 2022-04-11 11:25 | PCM.CONS.R ---
Assessment & Plan Assessment/Plan (1) FELI (acute kidney injury): PLAN: FELI is likely due to ischemic ATN dated to septic shock. Renal function has not improved with positive fluid balance. Agree with stopping IV fluid for now. We can still give IV bolus of fluid if MAP is below 65 mmHg. The patient is at risk for kidney replacement therapy. However, she is not hyperkalemic, volume overloaded, or severely acidotic today. Therefore, there is no immediate need for kidney replacement therapy today. Continue current effort to keep MAP above 65 mmHg. Current medications are reviewed. They are all appropriately dosed for her renal function. We will continue to follow the patient closely. (2) Chronic kidney disease, stage 4 (severe): PLAN: Baseline serum creatinine is around 2.00 to 2.40 mg/dL. The patient has diabetic kidney disease. (3) Metabolic acidosis: PLAN: Serum bicarbonate level is down to 15 mmol/L today. The patient has a corrected anion gap of 18 when hypoalbuminemia is accounted for. Suspect her acidosis is due to FELI/CKD along with poor tissue perfusion. There was no ketones on urine dipstick on 04/09/2022. Patient also received IV normal saline for volume expansion which can also contribute to non-anion gap metabolic acidosis as well. At this time, acidosis is not severe enough to require dialysis. I will continue to monitor serum bicarbonate. If IV fluid is needed, I would recommend using LR instead. (4) Septic shock: PLAN: Thick shock is likely secondary to cellulitis, diabetic foot infection and possibly osteomyelitis. Antimicrobial coverage as per hospitalist and shade hanger. There has been some improvement as she is now off of IV vasopressor. HPI Consult Data Date of Consult: 04/11/22 HPI Narrative Reason for Consultation: FELI on CKD HPI Narrative: DIONY ROCHA, is a is known to our service with chronic kidney disease stage IV secondary to diabetic kidney disease. The patient also has a past history of hypertension, polyneuropathy, Charcot's foot complicated by chronic diabetic foot ulcers/infection, CAD status post PCI, left ventricular hypertrophy, and heart failure with preserved ejection fraction (EF 55% on last echocardiogram). Patient was admitted to the hospital on 04/09/22 with diabetic foot infection complicated by septic shock. She is asked to see the patient because of acute kidney injury on chronic kidney disease. Baseline serum creatinine appears to be around 2.40 mg/dL (03/12/2022). The patient is intermittently confused. She complains of bilateral lower extremity pain. However, she denies chest pain, shortness of breath, nausea, or vomiting. There has been no diarrhea per RN. Has been no exposure to IV contrast. [facility] Medical History Acquired varus deformity of left foot Acquired varus deformity of right foot Amputation foot, bilat Anemia due to chronic illness Anxiety and depression Atherosclerosis of [place] coronary artery of [place] heart without angina pectoris Back pain, chronic Bilateral edema of lower extremity Charcot's joint of right foot Chronic renal insufficiency Chronic ulcer of left foot with fat layer exposed Chronic ulcer of right foot with necrosis of muscle COVID-19 (08/28/21) Delayed wound healing Diabetes Diabetic foot ulcer associated with type 2 diabetes mellitus Diabetic infection of left foot Diabetic polyneuropathy Diabetic ulcer of right ankle Elevated troponin Essential (primary) hypertension GERD (gastroesophageal reflux disease) Hemoglobin A1c greater than 9.0% HLD (hyperlipidemia) Hyperparathyroidism, secondary renal Hypertension Iron deficiency anemia Ischemic cardiomyopathy Myocardial infarct Non-compliance Non-smoker Normocytic anemia NSTEMI (non-ST elevated myocardial infarction) (09/20/18) Obesity (BMI 30.0-34.9) Osteomyelitis of left foot RLS (restless legs syndrome) Stage 4 chronic kidney disease TIA (transient ischemic attack) 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 Ulcer of left foot with fat layer exposed Ulcer of left foot with muscle involvement without evidence of necrosis Ulcer of right lower extremity with fat layer exposed Home Medications atorvastatin 80 mg tablet 80 mg PO QHS cholesterol #90 tabs 11/30/19 [Rx Last Taken 04/07/22] isosorbide mononitrate 30 mg tablet,extended release 24 hr 30 mg PO DAILY BP 03/03/21 [History Last Taken 04/07/22] paroxetine HCl 20 mg tablet 20 mg PO QHS DEPRESSION 07/07/21 [History Last Taken 04/07/22] insulin glargine 100 unit/mL (3 mL) subcutaneous pen (Lantus Solostar U-100 Insulin) 30 unit subcut DAILY diabetes 11/16/21 [History Last Taken 04/07/22] insulin lispro 100 unit/mL subcutaneous pen (Humalog KwikPen (U-100) Insulin) 5 unit subcut LUNCH dm 11/16/21 [History Last Taken 04/07/22] cyclobenzaprine 5 mg tablet 5 mg PO QHS pain #0 tabs 12/23/21 [Rx Last Taken 04/07/22] gabapentin 300 mg capsule 300 mg BID nerve pain 12/23/21 [History Last Taken 04/07/22] bupropion HCl 150 mg 24 hr tablet, extended release 150 mg PO DAILY mood 02/04/22 [History Last Taken 04/07/22] carvedilol 12.5 mg tablet 12.5 mg PO BID heart 02/04/22 [History Last Taken 04/07/22] hydroxyzine HCl 25 mg tablet 25 mg PO TID PRN Anxiety 02/04/22 [History Last Taken 04/07/22] carvedilol 6.25 mg tablet 6.25 mg PO BID heart 04/09/22 [History Last Taken 04/07/22] chlorpheniramine-acetaminophen 2 mg-325 mg tablet (Coricidin HBP Cold and Flu) 2 tab PO Q4H cold 04/09/22 [History Last Taken 04/07/22] guaifenesin 600 mg tablet, extended release 12 hr 600 - 1,200 mg PO BID congestion 04/09/22 [History Last Taken 04/07/22] melatonin 5 mg tablet 5 mg PO QHS sleep 04/09/22 [History Last Taken 04/07/22] pramipexole 1.5 mg tablet 1.5 mg PO BID rls 04/09/22 [History Last Taken 04/07/22] Allergy/AdvReac Type Severity Reaction Status Date / Time Penicillins Allergy swelling Verified 04/09/22 16:37 in throat vancomycin Allergy Itching Verified 04/09/22 16:37 metronidazole AdvReac Nausea Verified 04/09/22 16:37 oxycodone [From OxyContin] AdvReac Shortness Verified 04/09/22 16:37 of breath Family History Mother Diabetes CVA (cerebral vascular accident) Brother CAD (coronary artery disease) CABG X 3 Cancer testicular Diabetes Brother CAD (coronary artery disease) CABG X3 Diabetes Brother CAD (coronary artery disease) Stents Diabetes Sister CAD (coronary artery disease) CABG x 3 CVA (cerebral vascular accident) Diabetes Surgical History History of bilateral carpal tunnel release History of History of coronary artery stent placement (12/31/20) History of foot surgery History of rotator cuff surgery Social History household members: none number of children: 2 current occupational status: disabled Smoking Status: Never smoker alcohol intake: never substance use type: does not use caffeine: Yes Type: carbonated beverages Number of servings: 2 ROS ROS Narrative 07/19 ROS was done. It is otherwise noncontributory. Physical Exam Narrative General: Agitated but alert and oriented x3 during my visit. HEENT: Normocephalic, atraumatic. Mucous membrane is dry. PERRLA, EOMI. Hearing is intact. Neck: Supple, no JVD. Heart: Normal S1, S2. No rubs, murmurs or gallops. Lungs: Clear to auscultation anteriorly. Abdominal: Normal bowel sound, soft, nontender, no guarding or rebound. Extremities: Both feet are wrapped in gauze bandage which I did not take down. There is no edema of the lower extremities above the gauze. There is no clubbing of the fingernails. No cyanosis. Neurologic: No focal neurologic deficits. Skin: Warm and dry. No rash. Psychiatric: Appropriate affect. Agitated. Lab / Micro Data Result Diagrams: 04/11/22 03:40 04/11/22 03:40 Labs: Laboratory Results - last 24 hr 04/10/22 11:37: POC Glucose 257 H 04/10/22 17:26: POC Glucose 205 H 04/10/22 23:03: POC Glucose 114 H 04/11/22 03:40: WBC 14.6 H, RBC 2.65 L, Hgb 7.3 L, Hct 23.4 L, MCV 88.3, MCH 27.5, MCHC 31.2 L, RDW Std Deviation 54.5 H, RDW Coeff of Fior 17.0 H, Plt Count 214, MPV 12.0, Immature Gran % (Auto) 0.600, Neut % (Auto) 91.6 H, Lymph % (Auto) 2.9 L, [place] % (Auto) 4.3, Eos % (Auto) 0.5, Baso % (Auto) 0.1, Absolute Neuts (auto) 13.3 H, Absolute Lymphs (auto) 0.42 L, Nucleated RBC % 0, Differential Comment SCANNED, Platelet Estimate ADEQUATE 04/11/22 03:40: Sodium 135 L, Potassium 4.6, Chloride 109 H, Carbon Dioxide 15.0 L, Anion Gap 11, BUN 73 H, Creatinine 3.46 H, Estim Creat Clear Calc 17.00, Est GFR (MDRD) Af Amer 18 L, Est GFR (MDRD) Non-Af 15 L, BUN/Creatinine Ratio 21.1 H, Glucose 166 H, Calcium 7.8 L, Phosphorus 3.6, Magnesium 2.3 04/11/22 07:53: POC Glucose 142 H 04/11/22 10:45: POC Glucose 146 H Micro: Microbiology 04/09/22 20:51 Wound - Left Foot Gram Stain - Final 04/09/22 20:51 Wound - Left Foot Wound Culture - Preliminary Staphylococcus aureus Alpha hemolytic organism Gram positive organism 04/09/22 17:12 Blood Culture (Wb) - Anticubital Right Blood Culture - Preliminary Staphylococcus aureus 04/09/22 16:50 Blood Culture (Wb) - Anticubital Right Bacteria Detection (PCR) - Final Staphylococcus aureus mecA Resistance Marker 04/09/22 16:50 Blood Culture (Wb) - Anticubital Right Blood Culture - Preliminary Staphylococcus aureus 04/09/22 18:40 Urine, Catheterized Urine Culture - Preliminary Culture exhibits no growth. Rhythm Strip Rhythm Strip: Sinus Tach Rate: 125 Ectopy: None
[2022-04-11] MEDS: HYDROmorphone 0.5 MG/0.5 ML SYRINGE IV ×3 (11:35→21:35)
[2022-04-11 15:56] LABS: Bedside Glucose 147 mg/dL (74-106)
--- NOTE | 2022-04-11 16:47 | PN_ITS ---
Subjective Subjective Patient is a 56-year-old female with history of DM type II with peripheral polyneuropathy, chronic kidney disease stage IV, cellulitis of both lower extremities, and diabetic foot ulcerations to both lower extremities. She is seen bedside medicated and sleeping. Nursing states she was in a good amount of pain from her back. They also state in the middle of the night her previously closed right foot opened up secondary to her kicking the bed. Objective Data Objective Data Vital Signs: Vital Signs Temp Pulse Resp BP Pulse Ox O2 Del Method 96.0 F L 72 16 115/67 97 Room Air 04/11/22 16:00 04/11/22 16:00 04/11/22 16:00 04/11/22 16:00 04/11/22 16:00 04/11/22 16:00 Oxygen Delivery Method Room Air Weight: 92.4 kg Body Mass Index (BMI) 29.0 Intake & Output: Intake and Output for Last 24 Hours 04/09/22 04/10/22 04/11/22 23:59 23:59 23:59 Intake Total 20490 6048.77 / 6058.17 1545.57 / 1545.57 Output Total 215 / 215 130 / 130 Balance 2049 / 2289 5833.77 / 5843.17 1415.57 / 1415.57 Lab / Micro Data Result Diagrams: 04/11/22 03:40 04/11/22 03:40 Labs: Laboratory Results - last 24 hr 04/10/22 17:26: POC Glucose 205 H 04/10/22 23:03: POC Glucose 114 H 04/11/22 03:40: WBC 14.6 H, RBC 2.65 L, Hgb 7.3 L, Hct 23.4 L, MCV 88.3, MCH 27.5, MCHC 31.2 L, RDW Std Deviation 54.5 H, RDW Coeff of Fior 17.0 H, Plt Count 214, MPV 12.0, Immature Gran % (Auto) 0.600, Neut % (Auto) 91.6 H, Lymph % (Auto) 2.9 L, [place] % (Auto) 4.3, Eos % (Auto) 0.5, Baso % (Auto) 0.1, Absolute Neuts (auto) 13.3 H, Absolute Lymphs (auto) 0.42 L, Nucleated RBC % 0, Differential Comment SCANNED, Platelet Estimate ADEQUATE 04/11/22 03:40: Sodium 135 L, Potassium 4.6, Chloride 109 H, Carbon Dioxide 15.0 L, Anion Gap 11, BUN 73 H, Creatinine 3.46 H, Estim Creat Clear Calc 17.00, Est GFR (MDRD) Af Amer 18 L, Est GFR (MDRD) Non-Af 15 L, BUN/Creatinine Ratio 21.1 H , Glucose 166 H, Calcium 7.8 L, Phosphorus 3.6, Magnesium 2.3 04/11/22 07:53: POC Glucose 142 H 04/11/22 10:45: POC Glucose 146 H 04/11/22 15:43: POC Glucose 147 H Micro: Microbiology 04/09/22 20:51 Wound - Left Foot Gram Stain - Final 04/09/22 20:51 Wound - Left Foot Wound Culture - Preliminary Staphylococcus aureus Alpha hemolytic organism Gram positive organism 04/09/22 17:12 Blood Culture (Wb) - Anticubital Right Blood Culture - Preliminary Staphylococcus aureus 04/09/22 16:50 Blood Culture (Wb) - Anticubital Right Bacteria Detection (PCR) - Final Staphylococcus aureus mecA Resistance Marker 04/09/22 16:50 Blood Culture (Wb) - Anticubital Right Blood Culture - Prel iminary Staphylococcus aureus 04/09/22 18:40 Urine, Catheterized Urine Culture - Preliminary Culture exhibits no growth. Rhythm Strip Rhythm Strip: Sinus Tach Rate: 125 Ectopy: None Physical Exam Const alert, oriented x3 and well nourished HEENT normocephalic Eyes General Eye: normal appearance of both eyes Neck General: normal visual inspection Lymph Lymphatic: no lymphadenopathy noted and no lymphedema noted Resp normal respiratory effort Cardio regular rate and regular rhythm Extremity normal capillary refill and no calf tenderness Skin no rashes or lesions noted, skin turgor normal and no jaundice Skin Narrative: Left lower extremity: There is some slight erythema to the dorsal lateral foot with plantar ulceration subfifth metatarsal. Mild nonpitting lower extremity edema Right lower extremity: There is significant edema of the foot circumferentially secondary to fracture of the cuboid with Charcot arthropathy of the fourth and fifth metatarsal base articulations with the cuboid/lateral Lisfranc joint. There is some slight rubor to the dorsal lateral foot but no increased temperature about the region. Previously closed and well coapted lateral incision site opened secondary to her kicking the bed. Site measures 0.5 cm x 0.5 cm x 0.4cm. Site demonstrates no localized erythema but does have slight expressible serous fluid and coagulated blood secondary to her fracture. General Skin Exam: erythema Wound Narrative: Right lower extremity: No open wounds. No purulent drainage, no malodor, no erythema. Left lower extremity: Slight erythema dorsal lateral foot. Plantar ulceration subfifth metatarsal stump measures 3 cm x 2 cm with beefy red granular base and some slight surrounding skin maceration secondary to seeping wound fluid. There is some slight serosanguineous drainage. No purulent drainage expressible from wound site, no malodor. Neuro oriented x3 and moves all extremities Assessment & Plan Assessment/Plan (1) Septic shock: (2) Sepsis: (3) Cellulitis of both lower extremities: (4) Diabetic foot ulcers: (5) Delirium due to another medical condition: (6) FELI (acute kidney injury): (7) CRF (chronic renal failure): (8) Chronic kidney disease, stage 3b: (9) Charcot's joint, right ankle and foot: (10) Charcot's joint, left ankle and foot: (11) Non-pressure chronic ulcer of other part of left foot with fat layer exposed: (12) Diabetes mellitus with diabetic polyneuropathy: PLAN: Plan Patient seen and evaluated Cellulitis bilateral lower extremity, improving on IV abx. Patient has a plantar foot ulceration subfifth metatarsal measuring 3 cm x 2 cm with some slight maceration secondary to slight serosanguineous drainage. There is some erythema at the dorsal lateral aspect of the foot and cellulitis of the left lower extremity. There is no purulent drainage expressible from the site, no malodor. Site does probe to bone, plantar fifth metatarsal base. Radiographs of the left foot were reviewed and negative for osteomyelitis. She has history of MRSA infection, blood cultures 04/09/2022 positive for MRSA. Wound cultures demonstrate mixed gram positive organisms, final pending. I performed sharp debridement of this Freedman stage III ulcerative site without use of local anesthetic with a #15 blade removing fibrous, devitalized subcutaneous, biofilm, slough. Ulcerative debridement performed to the subcutaneous tissue level. Hemostasis obtained with pressure and gauze. This was tolerated well due to significant neuropathy. Site was painted with Betadine and dressed with dry sterile dressings. Right foot demonstrates some localized rubor with significant swelling circumferentially of the midfoot. Right foot at previously healed lateral incision site has opened secondary to her kicking and thrashing against the bed last night, since opening edema at the foot has decreased. Site measures 0.5 cm x 0.5 cm x 0.4 cm. No erythema about the site. No increased temperature to the right foot. There was some slight expressible serous fluid with coagulated blood today 04/11/2022. This was cultured, awaiting results. Right foot site was painted with Betadine and packed with quarter inch iodoform gauze and dressed with dry sterile dressing. I reviewed radiographs of the right foot from 04/09/22 and believe she is undergoing an acute Charcot arthropathy event. There is a fracture of the cuboid with dissociation of the fourth and fifth metatarsal base articulations with some increased sclerosis of the site. Patient on IV antibiotics with PICC line placed. WBC 21 at admission down to 14.6 currently. A1c 9.2%. Medical team currently managing patient while in ICU, this is greatly appreciated. Podiatry will continue to follow for local wound care for the left foot. Podiatry will continue to follow right foot closely for any further developments. Left foot ulcerative site painted with betadine and dressed with DSD. Will continue to closely monitor left foot for changes. Nursing to perform daily dressing changes to left and right foot. I am recommending nonweightbearing status to the right lower extremity. She may transfer from her left heel to wheelchair for ambulation assistance. Upon discharge I am recommending a fracture boot/Cam walker to be applied to the right lower extremity and a [place] [facility] facility for permanent placement as patient cannot care for herself at home. Please call for any questions or concerns Kayden Gann Jr. Terrell.P.M. [facility] [phone] Note: [employer] speech recognition cooler worker software was used to create portions of this document. Sound-alike and misspelled words, as well as other cooler worker errors may be contained in the documentation.
[2022-04-11] MEDS: Paroxetine 20 MG Tablet PO (21:28)
[2022-04-11] MEDS: Atorvastatin Calcium 80 MG Tablet PO (21:29)
[2022-04-11 21:35] LABS: Bedside Glucose 149 mg/dL (74-106)
[2022-04-11 21:41] LABS: Hematocrit 22.3 % (37-47); Hemoglobin 7.1 g/dL (12.0-15.0)
[2022-04-11 21:59] LABS: Vancomycin, Trough Level 29.2 ug/mL (5.0-15.0)
--- NOTE | 2022-04-11 22:43 | PCM.RX.CS ---
Consult Pharmacy has been consulted to manage selected antiobiotic: Vancomycin Type of Consult: Follow-up Labs: Sodium 135 mmol/L (136-145) L 04/11/22 03:40 Potassium 4.6 mmol/L (3.5-5.1) 04/11/22 03:40 Chloride 109 mmol/L (98-107) H 04/11/22 03:40 Carbon Dioxide 15.0 mmol/L (21.0-32.0) L 04/11/22 03:40 Anion Gap 11 (5-15) 04/11/22 03:40 BUN 73 mg/dL (7-18) H 04/11/22 03:40 Creatinine 3.46 mg/dL (0.55-1.02) H 04/11/22 03:40 Est GFR (MDRD) Af Amer 18 mL/min (>60) L 04/11/22 03:40 Est GFR (MDRD) Non-Af 15 mL/min (>60) L 04/11/22 03:40 BUN/Creatinine Ratio 21.1 RATIO (10-20) H 04/11/22 03:40 Glucose 166 mg/dL (74-106) H 04/11/22 03:40 Vancomycin Trough 29.2 ug/mL (5.0-15.0) H 04/11/22 21:30 Microbiology: Microbiology 04/09/22 20:51 Wound - Left Foot Gram Stain - Final 04/09/22 20:51 Wound - Left Foot Wound Culture - Preliminary Staphylococcus aureus Alpha hemolytic organism Gram positive organism 04/09/22 17:12 Blood Culture (Wb) - Anticubital Right Blood Culture - Preliminary Staphylococcus aureus 04/09/22 16:50 Blood Culture (Wb) - Anticubital Right Bacteria Detection (PCR) - Final Staphylococcus aureus mecA Resistance Marker 04/09/22 16:50 Blood Culture (Wb) - Anticubital Right Blood Culture - Preliminary Staphylococcus aureus 04/09/22 18:40 Urine, Catheterized Urine Culture - Preliminary Culture exhibits no growth. Goal Trough: 15-20 mcg/mL Pharmacy Plan for Drug Dosing: Pharmacy Service will continue to monitor and adjust dosing as required. TROUGH 29.2 AT 22 HOURS. HOLD DOSE NOW, DRAW RANDOM LEVEL IN 24 HOURS AND FOLLOW UP DOSING THEN. Follow-Up Labs: Trough Vancomycin Labs to be done on [date and time ordered]: 04/12 @ 2340 RANDOM
[2022-04-12] VITALS (28 sets, daily range): BP systolic 88–125; BP diastolic 46–113; PULSE 61–97; RESP 12–21; TEMP 35.9–36.4; O2SAT 94–100
[2022-04-12] MEDS: HYDROmorphone 0.5 MG/0.5 ML SYRINGE IV ×4 (02:34→17:44)
[2022-04-12] MEDS: 0.9% Saline Lock 10 ML Syringe IV ×4 (02:34→17:45)
--- NOTE | 2022-04-12 04:28 | NURSING ---
DSD WTD reapplied to L foot after pt pulled off. Sterile NS used to soak sterile gauze, which was then packed into ventral foot wound. Drsg secured w/kerlix wrap. Pt woody all well.
[2022-04-12 05:26] LABS: Absolute Lymphocyte Count 0.87 X10^3/uL (0.83-4.51); Absolute Neutrophil Count 10.5 X10^3/uL (2.0-7.7); Basophil# 0.03 X10^3/uL; Basophil% 0.2 % (0-1); Eosinophil# 0.38 X10^3/uL; Hematocrit 22.9 % (37-47); Hemoglobin 7.2 g/dL (12.0-15.0); Lymphocyte # 0.87 X10^3/ul (0.83-4.51); Lymphocyte % 6.8 % (19-41); Mean Corp Hgb Conc 31.4 g/dL (32-36); Mean Corpuscular Hgb 27.8 pg (27.0-32.0); Mean Corpuscular Volume 88.4 fL (81-99); Mean Platelet Vol. 12.4 fl (6.2-12.0); Monocyte# 0.89 X10^3/uL; NRBC Flagged by Analyzer 0.2 % (0-5); Neutrophil # 10.52 X10^3/uL (2.7-7.7); Neutrophil % 82.3 % (47-70); POSITIVE MORPHOLOGY YES; Platelet Count 201 K/mm3 (150-450); RBC Distribution Width CV 17.3 % (11.6-14.6); RBC Distribution Width SD 56.1 fl (35.1-43.9); Red Blood Count 2.59 M/mm3 (4.2-5.4); White Blood Count 12.8 K/mm3 (4.4-11.0)
[2022-04-12 05:31] LABS: Differential Indicated SCAN CRITERIA MET
[2022-04-12 05:44] LABS: Anion Gap 10 (5-15); BUN 83 mg/dL (7-18); BUN/Creat Ratio 22.4 RATIO (10-20); Calcium,Total 8.6 mg/dL (8.5-10.1); Chloride 112 mmol/L (98-107); EST Glomerular Filtration Rate 13 mL/min (>60); Est Glom Filt Rate - Afr Amer 16 mL/min (>60); Estimated Creatinine Clearance 15.89 ml/min; Glucose 110 mg/dL (74-106); Potassium 4.4 mmol/L (3.5-5.1); Sodium Level 138 mmol/L (136-145)
[2022-04-12 06:25] LABS: Differential Comment SCANNED
--- NOTE | 2022-04-12 06:27 | PN.CC_ITS ---
Assessment & Plan Assessment/Plan (1) Septic shock: PLAN: Plan RECOMMENDATIONS: 1. Await nephrology recommendations 2. Continue antimicrobials as ordered. 3. Monitor blood counts daily and transfuse if hemoglobin drops below 7 g/dL. 4. Obtain nephrology consultation. 5. Possible transfer out of the intensive care unit later today pending renal recommendations 6. Continue Protonix daily. IMPRESSIONS: 1. Septic shock The patient presented to the hospital with sepsis due to MRSA osteomyelitis/bacteremia with acute sepsis related organ dysfunction as evidenced by acute on chronic kidney disease and altered mentation. Ultimately, the patient developed fluid refractory hypotension, which necessitated the ini tiation of vasopressor support. This has been subsequently discontinued on 04/11/2022. Plan to continue antimicrobials as ordered. Podiatry is following to assist with medical management. Consider MRI of lower extremities per recommendations. Echocardiogram was unremarkable for the presence of valvular vegetations. 2. Acute on chronic kidney disease Likely prerenal/ischemic ATN in the setting of #1. Continue to monitor urine output. In light of the patient's worsening renal function, await nephrology recommendations. Continue to avoid nephrotoxic medications. 3. Encephalopathy Likely metabolic versus polypharmacy in etiology. Continue to hold sedating medications for now. CT head was unremarkable. ABG was appropriate. 4. Anemia The patient presented with acute on chronic anemia. Hemoglobin this morning was noted to be 7.3 g/dL. Plan to monitor blood counts and transfuse if hemoglobin drops below 7 g/dL. Continue Protonix. 5. History of coronary artery disease/anemia/hypertension/diabetes mellitus/hyperlipidemia/anxiety/depression/chronic pain syndrome Complicates care, management, recovery and prognosis. Recommend holding home Flexeril, Neurontin, hydroxyzine and melatonin, pending improvement in mental state. In addition, continue to hold home antihypertensives. Subjective Subjective Patient did okay overnight. No acute issues were reported. Patient was able to be taken off of Levophed. Nursing reports improved agitation following reinitiation of Dilaudid. Patient is reporting that she is tired and thirsty. Patient states she has pain, but this is not significantly different than baseline. Objective Data Objective Data Vital Signs: Vital Signs Temp Pulse Resp BP Pulse Ox O2 Del Method 35.9 C L 70 14 105/61 99 Room Air 04/12/22 06:00 04/12/22 06:00 04/12/22 06:00 04/12/22 06:00 04/12/22 06:00 04/12/22 06:00 Oxygen Delivery Method Room Air Weight: 90.6 kg Body Mass Index (BMI) 29.0 Intake & Output: Intake and Output for Last 24 Hours 04/10/22 04/11/22 04/12/22 23:59 23:59 23:59 Intake Total 6048.77 / 6058.17 1595.57 / 1595.57 Output Total 215 / 215 280 / 280 150 / 150 Balance 5833.77 / 5843.17 1315.57 / 1315.57 -150 / -150 Lab / Micro Data Attestation: I reviewed the patient's lab results. Result Diagrams: 04/12/22 05:19 04/12/22 05:19 Labs: Laboratory Results - last 24 hr 04/11/22 07:53: POC Glucose 142 H 04/11/22 10:45: POC Glucose 146 H 04/11/22 15:43: POC Glucose 147 H 04/11/22 21:25: POC Glucose 149 H 04/11/22 21:30: Vancomycin Trough 29.2 H 04/11/22 21:30: Hgb 7.1 L, Hct 22.3 L 04/12/22 05:19: WBC 12.8 H, RBC 2.59 L, Hgb 7.2 L, Hct 22.9 L, MCV 88.4, MCH 27.8, MCHC 31.4 L, RDW Std Deviation 56.1 H, RDW Coeff of Fior 17.3 H, Plt Count 201, MPV 12.4 H, Immature Gran % (Auto) 0.700, Neut % (Auto) 82.3 H, Lymph % (Auto) 6.8 L, [place] % (Auto) 7.0, Eos % (Auto) 3.0, Baso % (Auto) 0.2, Absolute Neuts (auto) 10.5 H, Absolute Lymphs (auto) 0.87, Nucleated RBC % 0.2, Differential Comment SCANNED 04/12/22 05:19: Sodium 138, Potassium 4.4, Chloride 112 H, Carbon Dioxide 16.0 L , Anion Gap 10, BUN 83 H, Creatinine 3.70 H, Estim Creat Clear Calc 15.89, Est GFR (MDRD) Af Amer 16 L, Est GFR (MDRD) Non-Af 13 L, BUN/Creatinine Ratio 22.4 H , Glucose 110 H, Calcium 8.6 Micro: Microbiology 04/09/22 20:51 Wound - Left Foot Gram Stain - Final 04/09/22 20:51 Wound - Left Foot Wound Culture - Preliminary Staphylococcus aureus Alpha hemolytic organism Gram positive organism 04/09/22 17:12 Blood Culture (Wb) - Anticubital Right Blood Culture - Preliminary Staphylococcus aureus 04/09/22 16:50 Blood Culture (Wb) - Anticubital Right Bacteria Detection (PCR) - Final Staphylococcus aureus mecA Resistance Marker 04/09/22 16:50 Blood Culture (Wb) - Anticubital Right Blood Culture - Prelim inary Staphylococcus aureus 04/09/22 18:40 Urine, Catheterized Urine Culture - Preliminary Culture exhibits no growth. Rhythm Strip Rhythm Strip: Sinus Rhythm Rate: 72 Ectopy: None Physical Exam Const Constitutional Narrative: Alert but notably confused and restless in bed. Slightly agitated General Appearance: ill appearing HEENT normocephalic and head/scalp atraumatic Mouth: oral and palatal mucosa normal Eyes PERRL and EOMs intact bilaterally Neck supple General: trachea midline Chest inspection of chest normal Resp normal respiratory effort Effort and Inspection: tachypneic Auscultation: Negative for rales, rhonchi or wheezes Cardio regular rate, regular rhythm, no murmurs, no rub and no gallops GI normal to inspection, nondistended, normoactive bowel sounds Extremity General Extremity: edema bilateral (2+) lower extremity Skin Skin Narrative: Wrapped lower extremities. General Skin Exam: erythema Neuro CN's II-XII intact bilaterally, moves all extremities and no focal motor deficits Psych Activity / Motor Behavior: restless Charges/Coding Visit Charges Inpatient E&M: 09893 Subs Hosp L3
[2022-04-12 07:46] LABS: Bedside Glucose 104 mg/dL (74-106)
--- NOTE | 2022-04-12 07:54 | PN.HOSP_ITS ---
Subjective Subjective Discussed with nursing, patient was having a conversation with her today but then started yelling out client with severe abdominal pain and did receive hydromorphone. Since then patient has been lethargic. Objective Data Objective Data Vital Signs: Vital Signs Temp Pulse Resp BP Pulse Ox O2 Del Method 36.0 C L 74 17 100/53 L 100 Room Air 04/12/22 07:00 04/12/22 07:00 04/12/22 07:00 04/12/22 07:00 04/12/22 07:00 04/12/22 07:00 Oxygen Delivery Method Room Air Weight: 90.6 kg Body Mass Index (BMI) 29.0 Intake & Output: Intake and Output for Last 24 Hours 04/10/22 04/11/22 04/12/22 23:59 23:59 23:59 Intake Total 6048.77 / 6058.17 1595.57 / 1595.57 Output Total 215 / 215 280 / 280 150 / 150 Balance 5833.77 / 5843.17 1315.57 / 1315.57 -150 / -150 Lab / Micro Data Result Diagrams: 04/12/22 05:19 04/12/22 05:19 Labs: Laboratory Results - last 24 hr 04/11/22 07:53: POC Glucose 142 H 04/11/22 10:45: POC Glucose 146 H 04/11/22 15:43: POC Glucose 147 H 04/11/22 21:25: POC Glucose 149 H 04/11/22 21:30: Vancomycin Trough 29.2 H 04/11/22 21:30: Hgb 7.1 L, Hct 22.3 L 04/12/22 05:19: WBC 12.8 H, RBC 2.59 L, Hgb 7.2 L, Hct 22.9 L, MCV 88.4, MCH 27.8, MCHC 31.4 L, RDW Std Deviation 56.1 H, RDW Coeff of Fior 17.3 H, Plt Count 201, MPV 12.4 H, Immature Gran % (Auto) 0.700, Neut % (Auto) 82.3 H, Lymph % (Auto) 6.8 L, [place] % (Auto) 7.0, Eos % (Auto) 3.0, Baso % (Auto) 0.2, Absolute Neuts (auto) 10.5 H, Absolute Lymphs (auto) 0.87, Nucleated RBC % 0.2, Differ ential Comment SCANNED 04/12/22 05:19: Sodium 138, Potassium 4.4, Chloride 112 H, Carbon Dioxide 16.0 L , Anion Gap 10, BUN 83 H, Creatinine 3.70 H, Estim Creat Clear Calc 15.89, Est GFR (MDRD) Af Amer 16 L, Est GFR (MDRD) Non-Af 13 L, BUN/Creatinine Ratio 22.4 H , Glucose 110 H, Calcium 8.6 04/12/22 07:41: POC Glucose 104 Micro: Microbiology 04/09/22 17:12 Blood Culture (Wb) - Anticubital Right Blood Culture - Final Staphylococcus aureus 04/09/22 16:50 Blood Culture (Wb) - Anticubital Right Bacteria Detection (PCR) - Final Staphylococcus aureus mecA Resistance Marker 04/09/22 16:50 Blood Culture (Wb) - Anticubital Right Blood Culture - Final Meth. resistant Staph. aureus 04/09/22 20:51 Wound - Left Foot Gram Stain - Final 04/09/22 20:51 Wound - Left Foot Wound Culture - Preliminary Staphylococcus aureus Alpha hemolytic organism Gram positive organism 04/09/22 18:40 Urine, Catheterized Urine Culture - Preliminary Culture exhibits no growth. Rhythm Strip Rhythm Strip: Sinus Rhythm Rate: 72 Ectopy: None Physical Exam Const Constitutional Narrative: In bed. Does not open her eyes. Withdraws to noxious stimuli. Neck no lymphadenopathy Resp normal respiratory effort, no retractions, no use of accessory muscles and clear to auscultation bilaterally Cardio regular rate, regular rhythm, S1 normal heart sound and S2 normal heart sound GI normal to inspection, nondistended, normoactive bowel sounds, soft to palpation, non-tender and non-distended Extremity Extremity Narrative: Both feet and ankle wrapped, did not remove. Neuro oriented x3 Assessment & Plan Assessment/Plan (1) Cellulitis of both lower extremities: PLAN: Plan 1. Septic shock due to MRSA osteomyelitis with bacteremia with acute sepsis related organ dysfunction evidenced by acute on chronic kidney disease, altered mental status. Lactic acid normal. On IV vancomycin and cefepime patient last wound culture on 02/12/2022 shows corynebacterium stratum, 3+ and MRSA. Follow-up cultures. Blood cultures positive of MRSA. Wound culture: S. aureus, Alpha hemolytic strep and GPO s/p debridement on the Plan: * continue IV vanc and cefepime * follow up cultures 2. Acute kidney injury, Likely due to ATN Creatinine worse today, baseline around 2.7 04/11: Oliguria with positive fluid balance. Upholstery Estimator is consulted. 04/12: oliguric. nephrology following. Discussed with Dr. Romero. Plan is for IV furosemide today. Patient may very well likely require renal placement therapy. Recommend patient stay in the ICU because she does need line placement on the fifth. 3. Acute hyponatremia, hypovolemic: Resolved Admission sodium 127, baseline normal 136-144 range 4. Diabetes mellitus type II complicated with Charcot foot, polyneuropathy: Fair controlAccu-Chek insulin is covered with Humalog sliding scale. Patient on gabapentin. A1c 9.2. Started on scheduled Humalog insulin 10 units subcutaneous 3 times daily AC and Lantus dose increased. 04/11: Glucose is running low. Holding scheduled insulin . Patient not having adequate oral intake 5. Encephalopathy Probably a combination of metabolic due to uremia as well as toxic due to narcotics. DC narcotics and potentiating medications given her current status. 6. CAD, ischemic cardiomyopathy: We will continue patient Plavix, statin, Coreg, not on MYLA inhibitor/ARB likely secondary to underlying renal disease. Will judiciously hydrate. 01/06/22 ECOH w/ EF 55%, normal diastolic function, trivial MVI, no significant valvular vegetations demonstrated. 04/11: EF 55%, mild concentric LVH, mild 2+ TR. RVSP 48 mmHg consistent with chronic HFpEF 7. Obesity: Weight loss and lifestyle changes encouraged. 8. Chronic anemia, AOCD: Admission hemoglobin 9.6, MCV normocytic range, baseline hemoglobin 8-9, stable, trend. 04/11: Hemoglobin dropped to 7.3. Hold Plavix. 9. Hypertension: Coreg, isosorbide held 10. Chronic conditions: * Hyperlipidemia: We will continue patient home statin therapy. * Restless leg syndrome: l continue patient home pramipexole regimen. * Anxiety and depression: continue patient home bupropion and hydroxyzine regimen as well as paroxetine given clinical improvement and currently mentating appropriately. * Chronic back pain: Patient with MRI of her spine in January 2022 with spinal stenosis with spinal surgery consultation with recommended continued conservative management secondary to significant high risk. Encourage positional changes, fall precautions, therapies consulted, cautiously continue patient low-dose Flexeril and chronic narcotic regimen as well as gabapentin given she is mentating at her baseline and blood pressures are appropriate at this time but low threshold to hold if becomes encephalopathic. 11. DVT prophylaxis: SCDs, heparin. 12. CODE STATUS: Full code Charges/Coding Visit Charges Inpatient E&M: 66594 Subs Hosp L2
[2022-04-12] MEDS: QUEtiapine 25 MG Tablet PO (09:24)
[2022-04-12] MEDS: Pramipexole Di-HCl 1 MG Tablet 1.5 MG PO ×2 (09:24→20:04)
[2022-04-12] MEDS: buPROPion (XL) 150 MG TABLET.XL PO (09:25)
[2022-04-12] MEDS: CHLORHEXIDINE GLUC 2% CLOTH 1 EACH TOWELETTE TOPICAL (09:25)
[2022-04-12] MEDS: Cefepime HCl 2 GM in 0.9% NS 100 ML Minibag Q8 IV (09:25)
--- NOTE | 2022-04-12 11:10 | PCM.PN.REN ---
Subjective Subjective Following for FELI on CKD. The patient is obtunded. She just received hydromorphone for pain prior to my arrival per RN. Prior to that, she was confused but conversant. Cannot do ROS because of encephalopathy. Objective Data Objective Data Vital Signs: Vital Signs Temp Pulse Resp BP Pulse Ox O2 Del Method 96.8 F L 74 17 100/53 L 100 Room Air 04/12/22 07:00 04/12/22 07:00 04/12/22 07:00 04/12/22 07:00 04/12/22 09:30 04/12/22 09:30 Oxygen Delivery Method Room Air Weight: 90.6 kg Body Mass Index (BMI) 29.0 Intake & Output: Intake and Output for Last 24 Hours 04/10/22 04/11/22 04/12/22 23:59 23:59 23:59 Intake Total 6048.77 / 6058.17 1595.57 / 1595.57 210 / 210 Output Total 215 / 215 280 / 280 150 / 150 Balance 5833.77 / 5843.17 1315.57 / 1315.57 60 / 60 Lab / Micro Data Result Diagrams: 04/12/22 05:19 04/12/22 05:19 Labs: Laboratory Results - last 24 hr 04/11/22 15:43: POC Glucose 147 H 04/11/22 21:25: POC Glucose 149 H 04/11/22 21:30: Vancomycin Trough 29.2 H 04/11/22 21:30: Hgb 7.1 L, Hct 22.3 L 04/12/22 05:19: WBC 12.8 H, RBC 2.59 L, Hgb 7.2 L, Hct 22.9 L, MCV 88.4, MCH 27.8, MCHC 31.4 L, RDW Std Deviation 56.1 H, RDW Coeff of Fior 17.3 H, Plt Count 201, MPV 12.4 H, Immature Gran % (Auto) 0.700, Neut % (Auto) 82.3 H, Lymph % (Auto) 6.8 L, Mcdowell % (Auto) 7.0, Eos % (Auto) 3.0, Baso % (Auto) 0.2, Absolute Neuts (auto) 10.5 H, Absolute Lymphs (auto) 0.87, Nucleated RBC % 0.2, Differential Comment SCANNED 04/12/22 05:19: Sodium 138, Potassium 4.4, Chloride 112 H, Carbon Dioxide 16.0 L, Anion Gap 10, BUN 83 H, Creatinine 3.70 H, Estim Creat Clear Calc 15.89, Est GFR (MDRD) Af Amer 16 L, Est GFR (MDRD) Non-Af 13 L, BUN/Creatinine Ratio 22.4 H, Glucose 110 H, Calcium 8.6 04/12/22 07:41: POC Glucose 104 Micro: Microbiology 04/09/22 20:51 Wound - Left Foot Gram Stain - Final 04/09/22 20:51 Wound - Left Foot Wound Culture - Preliminary Meth. resistant Staph. aureus Alpha hemolytic organism Gram positive organism 04/09/22 20:51 Wound - Left Foot Anaerobic Culture - Preliminary Checking for anaerobes, further studies to follow. 04/09/22 18:40 Urine, Catheterized Urine Culture - Final Culture exhibits no growth. 04/09/22 17:12 Blood Culture (Wb) - Anticubital Right Blood Culture - Final Staphylococcus aureus 04/09/22 16:50 Blood Culture (Wb) - Anticubital Right Bacteria Detection (PCR) - Final Staphylococcus aureus mecA Resistance Marker 04/09/22 16:50 Blood Culture (Wb) - Anticubital Right Blood Culture - Final Meth. resistant Staph. aureus Rhythm Strip Rhythm Strip: Sinus Rhythm Rate: 72 Ectopy: None Physical Exam Narrative General: Obtunded. Arousable with tactile stimuli but falls asleep quickly. Neck: Supple, no JVD. Heart: Normal S1, S2. No rubs, murmurs or gallops. Lungs: Clear to auscultation anteriorly. Abdominal: Normal bowel sound, soft, nontender, no guarding or rebound. Extremities: Both feet are wrapped in gauze bandage which I did not take down. There is no edema of the lower extremities above the gauze. There is no clubbing of the fingernails. No cyanosis. Assessment & Plan Assessment/Plan (1) FELI (acute kidney injury): PLAN: FELI is due to ischemic ATN related to septic shock. Renal function has not improved with positive fluid balance. Agree with stopping IV fluid. We can still give IV bolus of fluid if MAP is consistently below 65 mmHg. Since blood pressure has been stable in the last 24 hours without need for IV vasopressor, I will try furosemide challenge test. If the patient makes urine with furosemide, I may give her more IV fluid boluses. The patient is at high risk for kidney replacement therapy. However, she is not hyperkalemic, volume overloaded, or severely acidotic today. Therefore, there is no immediate need for kidney replacement therapy today. I did speak to her daughter, Trisha Dewey [phone], today about possibility of dialysis if there is no improvement in renal function or significant urine output in the next 24 hours. Continue current effort to keep MAP above 65 mmHg. Current medications are reviewed. They are all appropriately dosed for her renal function. We will continue to follow the patient closely. (2) Chronic kidney disease, stage 4 (severe): PLAN: Baseline serum creatinine is around 2.00 to 2.40 mg/dL. The patient has underlying diabetic kidney disease. (3) Metabolic acidosis: PLAN: Serum bicarbonate level is low but stable at 16 mmol/L today. Suspect her acidosis is due to FELI/CKD along with poor tissue perfusion. There was no ketones on urine dipstick on 04/09/2022. Patient also received IV normal saline for volume expansion which can also contribute to non-anion gap metabolic acidosis as well. At this time, acidosis is not severe enough to require urgent dialysis. I will continue to monitor serum bicarbonate. If IV fluid is needed, I would recommend using LR instead. (4) Septic shock: PLAN: Thick shock is likely secondary to cellulitis, diabetic foot infection and possibly osteomyelitis. Antimicrobial coverage as per hospitalist and learning and development manager. There has been some improvement as she has been off of IV vasopressor for more than 24 hours. WBC is also trending down. Nephrology plan discussed with hospitalist and learning and development manager.
[2022-04-12 11:50] LABS: Bedside Glucose 128 mg/dL (74-106)
[2022-04-12] MEDS: Glucerna Shake 120 ML LIQUID PO ×2 (12:55→17:25)
[2022-04-12] MEDS: Furosemide 100 MG/10 ML Vial IV (12:55)
--- NOTE | 2022-04-12 13:04 | NURSING ---
podiatry in and changed both dressings on patients feet.
--- NOTE | 2022-04-12 13:43 | PCM.PROGNOTE ---
Subjective Subjective This is a 56-year-old female who was seen for bilateral diabetic foot ulcerations with bilateral lower extremity cellulitis. She is seen bedside today resting following dose of pain medication. She complains of pain in her back and still seems a bit confused. She has no further complaints today. Objective Data Objective Data Vital Signs: Vital Signs Temp Pulse Resp BP Pulse Ox O2 Del Method 97.3 F L 78 13 125/61 H 96 Room Air 04/12/22 13:00 04/12/22 13:00 04/12/22 13:00 04/12/22 13:00 04/12/22 13:00 04/12/22 13:00 Oxygen Delivery Method Room Air Weight: 90.6 kg Body Mass Index (BMI) 29.0 Intake & Output: Intake and Output for Last 24 Hours 04/10/22 04/11/22 04/12/22 23:59 23:59 23:59 Intake Total 6048.77 / 6058.17 1595.57 / 1595.57 330 / 330 Output Total 215 / 215 280 / 280 200 / 200 Balance 5833.77 / 5843.17 1315.57 / 1315.57 130 / 130 Lab / Micro Data Result Diagrams: 04/12/22 05:19 04/12/22 05:19 Labs: Laboratory Results - last 24 hr 04/11/22 15:43: POC Glucose 147 H 04/11/22 21:25: POC Glucose 149 H 04/11/22 21:30: Vancomycin Trough 29.2 H 04/11/22 21:30: Hgb 7.1 L, Hct 22.3 L 04/12/22 05:19: WBC 12.8 H, RBC 2.59 L, Hgb 7.2 L, Hct 22.9 L, MCV 88.4, MCH 27.8, MCHC 31.4 L, RDW Std Deviation 56.1 H, RDW Coeff of Fior 17.3 H, Plt Count 201, MPV 12.4 H, Immature Gran % (Auto) 0.700, Neut % (Auto) 82.3 H, Lymph % (Auto) 6.8 L, [facility] % (Auto) 7.0, Eos % (Auto) 3.0, Baso % (Auto) 0.2, Absolute Neuts (auto) 10.5 H, Absolute Lymphs (auto) 0.87, Nucleated RBC % 0.2, Differential Comment SCANNED 04/12/22 05:19: Sodium 138, Potassium 4.4, Chloride 112 H, Carbon Dioxide 16.0 L, Anion Gap 10, BUN 83 H, Creatinine 3.70 H, Estim Creat Clear Calc 15.89, Est GFR (MDRD) Af Amer 16 L, Est GFR (MDRD) Non-Af 13 L, BUN/Creatinine Ratio 22.4 H, Glucose 110 H, Calcium 8.6 04/12/22 07:41: POC Glucose 104 04/12/22 11:47: POC Glucose 128 H Micro: Microbiology 04/11/22 12:30 Wound Abcess - Right Foot Wound Culture - Preliminary Staphylococcus aureus 04/09/22 20:51 Wound - Left Foot Gram Stain - Final 04/09/22 20:51 Wound - Left Foot Wound Culture - Preliminary Meth. resistant Staph. aureus Alpha Hemolytic Streptococcus Gram positive elinor 04/09/22 20:51 Wound - Left Foot Anaerobic Culture - Preliminary Checking for anaerobes, further studies to follow. 04/09/22 18:40 Urine, Catheterized Urine Culture - Final Culture exhibits no growth. 04/09/22 17:12 Blood Culture (Wb) - Anticubital Right Blood Culture - Final Staphylococcus aureus 04/09/22 16:50 Blood Culture (Wb) - Anticubital Right Bacteria Detection (PCR) - Final Staphylococcus aureus mecA Resistance Marker 04/09/22 16:50 Blood Culture (Wb) - Anticubital Right Blood Culture - Final Meth. resistant Staph. aureus Rhythm Strip Rhythm Strip: Sinus Rhythm Rate: 72 Ectopy: None Physical Exam Const alert, oriented x3 and well nourished HEENT normocephalic Eyes General Eye: normal appearance of both eyes Neck General: normal visual inspection Lymph Lymphatic: no lymphadenopathy noted and no lymphedema noted Resp normal respiratory effort Cardio regular rate and regular rhythm Extremity normal capillary refill and no calf tenderness Skin no rashes or lesions noted, skin turgor normal and no jaundice Skin Narrative: Left lower extremity: There is some slight erythema to the dorsal lateral foot with plantar ulceration subfifth metatarsal. Mild nonpitting lower extremity edema Right lower extremity: There is significant edema of the foot circumferentially secondary to fracture of the cuboid with Charcot arthropathy of the fourth and fifth metatarsal base articulations with the cuboid/lateral Lisfranc joint. There is some slight rubor to the dorsal lateral foot but no increased temperature about the region. Previously closed and well coapted lateral incision site opened secondary to her kicking the bed. Site measures 0.5 cm x 0.5 cm x 0.4cm. Site demonstrates no localized erythema but does have slight expressible serous fluid and coagulated blood secondary to her fracture. General Skin Exam: erythema Wound Narrative: Right lower extremity: No open wounds. No purulent drainage, no malodor, no erythema. Left lower extremity: Slight erythema dorsal lateral foot. Plantar ulceration subfifth metatarsal stump measures 3 cm x 2 cm with beefy red granular base and some slight surrounding skin maceration secondary to seeping wound fluid. There is some slight serosanguineous drainage. No purulent drainage expressible from wound site, no malodor. Neuro oriented x3 and moves all extremities Assessment & Plan Assessment/Plan (1) Septic shock: (2) Sepsis: (3) Cellulitis of both lower extremities: (4) Diabetic foot ulcers: (5) Delirium due to another medical condition: (6) FELI (acute kidney injury): (7) CRF (chronic renal failure): (8) Chronic kidney disease, stage 3b: (9) Charcot's joint, right ankle and foot: (10) Charcot's joint, left ankle and foot: (11) Non-pressure chronic ulcer of other part of left foot with fat layer exposed: (12) Diabetes mellitus with diabetic polyneuropathy: PLAN: Plan Patient seen and evaluated Cellulitis bilateral lower extremity, improving on IV abx. Patient has a plantar foot ulceration subfifth metatarsal measuring 3 cm x 2 cm with some slight maceration secondary to slight serosanguineous drainage. There is some erythema at the dorsal lateral aspect of the foot and cellulitis of the left lower extremity. There is no purulent drainage expressible from the site, no malodor. Site does probe to bone, plantar fifth metatarsal base. Radiographs of the left foot were reviewed and negative for osteomyelitis. She has history of MRSA infection, blood cultures 04/09/2022 positive for MRSA. Wound cultures demonstrate mixed gram positive organisms - Staph aureus & MRSA. Sharp debridement was performed on 04/11/2022 of this Freedman stage III ulcerative site without use of local anesthetic with a #15 blade removing fibrous, devitalized subcutaneous, biofilm, slough. Ulcerative debridement performed to the subcutaneous tissue level. Hemostasis obtained with pressure and gauze. This was tolerated well due to significant neuropathy. Site was reexamined today 04/12/22 with no expressible purulence or malodor from the wound site. Site was painted with Betadine packed with a Betadine soaked gauze and dressed with dry sterile dressing. Right foot demonstrates some localized rubor with significant swelling circumferentially of the midfoot, edema improving. Right foot previously healed lateral incision site has opened secondary to her kicking and thrashing against the bed on 04/10/22, since opening edema at the foot has decreased. Site measures 0.5 cm x 0.5 cm x 0.4 cm. No erythema about the site at this time. No increased temperature to the right foot. There was some slight expressible serous fluid with coagulated blood on 04/11/2022. This was cultured - results: Staph aureus. Dressings changed today 04/12/22, previous packing demonstrates scant purulence, this is new. Right foot site was painted with Betadine and packed with quarter inch iodoform gauze and dressed with dry sterile dressing. I reviewed radiographs of the right foot from 04/09/22 and believe she is undergoing an acute Charcot arthropathy event. There is a fracture of the cuboid with dissociation of the fourth and fifth metatarsal base articulations with some increased sclerosis of the site. Patient on IV antibiotics with PICC line placed. WBC 21 at admission down to 14.6 on 04/11/2022 and trending down to 12.6 currently. A1c 9.2%. Medical team currently managing patient while in ICU, this is greatly appreciated. Podiatry will continue to follow for local wound care for the left foot. Podiatry will continue to follow right foot closely for any further developments, if procedure is warranted requiring amputation I do no believe she would do well with Choparts amputation with tendon re-balancing and likely would need a BKA. Left foot ulcerative site painted with betadine and dressed with DSD. Will continue to closely monitor left foot for changes. Nursing to perform daily dressing changes to left and right foot. I am recommending nonweightbearing status to the right lower extremity. She may transfer from her left heel to wheelchair for ambulation assistance. Upon discharge I am recommending a fracture boot/Cam walker to be applied to the right lower extremity and a penitentiary facility for permanent placement as patient cannot properly care for herself at home. Please call for any questions or concerns Jr. Scot WiseP.M. [facility] [phone] Note: [employer] speech recognition thermo cementing folder operator software was used to create portions of this document. Sound-alike and misspelled words, as well as other thermo cementing folder operator errors may be contained in the documentation.
[2022-04-12] MEDS: Haloperidol Lactate 5 MG/ML Vial 2 MG IV (17:22)
[2022-04-12 17:30] LABS: Bedside Glucose 146 mg/dL (74-106)
--- NOTE | 2022-04-12 20:00 | NURSING ---
Patient resistive to care after multiple attempts to reorient. Patient believes it is 1940, yelling at staff, pulling on cords/wire/tubes/PICC line site.Patient bites off peice of flesh to left middle finger and is unaware of bleeding. Dressing applied and physician notified. Will continue to monitor.
[2022-04-12] MEDS: Atorvastatin Calcium 80 MG Tablet PO (20:04)
[2022-04-12] MEDS: Paroxetine 20 MG Tablet PO (20:06)
[2022-04-12] MEDS: Insulin Lispro 100 UNIT/ML INSULN.PEN SC (20:11)
[2022-04-12 20:51] LABS: Bedside Glucose 153 mg/dL (74-106)
[2022-04-13] VITALS (24 sets, daily range): BP systolic 94–141; BP diastolic 52–82; PULSE 58–95; RESP 13–22; TEMP 36.3–36.4; O2SAT 96–100
[2022-04-13] MEDS: Dexmedetomidine 1,000 mcg in 0.9% NS 240 mL 9.1 MCG CONT INF (02:43)
[2022-04-13 05:12] LABS: Absolute Lymphocyte Count 0.84 X10^3/uL (0.83-4.51); Absolute Neutrophil Count 9.1 X10^3/uL (2.0-7.7); Basophil# 0.03 X10^3/uL; Basophil% 0.3 % (0-1); Eosinophils% 2.7 % (0-5); Hemoglobin 7.2 g/dL (12.0-15.0); Lymphocyte # 0.84 X10^3/ul (0.83-4.51); Lymphocyte % 7.5 % (19-41); Mean Corp Hgb Conc 31.3 g/dL (32-36); Mean Corpuscular Hgb 27.3 pg (27.0-32.0); Mean Corpuscular Volume 87.1 fL (81-99); Mean Platelet Vol. 11.7 fl (6.2-12.0); Monocyte# 0.72 X10^3/uL; Monocyte% 6.5 % (0-10); NRBC Flagged by Analyzer 0.2 % (0-5); Neutrophil # 9.05 X10^3/uL (2.7-7.7); Neutrophil % 81.3 % (47-70); Platelet Count 190 K/mm3 (150-450); RBC Distribution Width CV 17.3 % (11.6-14.6); RBC Distribution Width SD 55.7 fl (35.1-43.9); Red Blood Count 2.64 M/mm3 (4.2-5.4); White Blood Count 11.1 K/mm3 (4.4-11.0)
[2022-04-13 05:46] LABS: Albumin, Serum 1.4 g/dL (3.2-5.0); BUN 88 mg/dL (7-18); BUN/Creat Ratio 21.6 RATIO (10-20); Calcium,Total 8.5 mg/dL (8.5-10.1); Chloride 113 mmol/L (98-107); Creatinine, Serum 4.08 mg/dL (0.55-1.02); EST Glomerular Filtration Rate 12 mL/min (>60); Est Glom Filt Rate - Afr Amer 15 mL/min (>60); Estimated Creatinine Clearance 14.41 ml/min; Glucose 143 mg/dL (74-106); Phosphorus 4.9 mg/dL (2.5-4.9); Potassium 4.4 mmol/L (3.5-5.1); Sodium Level 139 mmol/L (136-145)
[2022-04-13 06:03] LABS: Vancomycin, Random Level 24.3 ug/mL (0.0-15.0)
--- NOTE | 2022-04-13 06:24 | PCM.PN.INT ---
Assessment & Plan Assessment/Plan (1) Septic shock: PLAN: Plan RECOMMENDATIONS: 1. Await nephrology recommendations 2. Continue antimicrobials as ordered. 3. Monitor blood counts daily and transfuse if hemoglobin drops below 7 g/dL. 4. Increase Seroquel dosing. Wean Precedex 5. Possible transfer out of the intensive care unit later today pending behavior 6. Continue Protonix daily. IMPRESSIONS: 1. Septic shock Improving. The patient presented to the hospital with sepsis due to MRSA osteomyelitis/bacteremia with acute sepsis related organ dysfunction as evidenced by acute on chronic kidney disease and altered mentation. Ultimately, the patient developed fluid refractory hypotension, which necessitated the initiation of vasopressor support. This has been subsequently discontinued on 04/11/2022. Plan to continue antimicrobials as ordered. Podiatry is following to assist with medical management. Echocardiogram was unremarkable for the presence of valvular vegetations. Likely does not require continued ICU level care for this problem. 2. Acute on chronic kidney disease Likely prerenal/ischemic ATN in the setting of #1. Continue to monitor urine output. Patient appears to have responded to Lasix therapy. Await nephrology recommendations on dialysis. Continue to avoid nephrotoxic medications. 3. Encephalopathy Acutely worse overnight. Likely metabolic versus polypharmacy in etiology. Increase Seroquel. Wean Precedex.. CT head was unremarkable. Previous ABG was appropriate. 4. Anemia The patient presented with acute on chronic anemia. Hemoglobin this morning was noted to be 7.3 g/dL. Plan to monitor blood counts and transfuse if hemoglobin drops below 7 g/dL. Continue Protonix. 5. History of coronary artery disease/anemia/hypertension/diabetes mellitus/hyperlipidemia/anxiety/depression/chronic pain syndrome Complicates care, management, recovery and prognosis. Recommend holding home Flexeril, Neurontin, hydroxyzine and melatonin, pending improvement in mental state. In addition, continue to hold home antihypertensives. Subjective Subjective Patient did okay overnight from a hemodynamic standpoint. No boluses or pressors were required. However, patient has been significantly agitated including biting her finger enough to draw blood. Patient subsequently placed on a Precedex drip with improvement in condition. Patient has had decent urine output overnight. Objective Data Objective Data Vital Signs: Vital Signs Temp Pulse Resp BP Pulse Ox O2 Del Method 36.3 C L 60 15 103/58 L 99 Room Air 04/13/22 04:00 04/13/22 05:00 04/13/22 05:00 04/13/22 05:00 04/13/22 05:00 04/13/22 05:00 Oxygen Delivery Method Room Air Weight: 91.1 kg Body Mass Index (BMI) 29.0 Intake & Output: Intake and Output for Last 24 Hours 04/11/22 04/12/22 04/13/22 23:59 23:59 23:59 Intake Total 1595.57 / 1595.57 608.34 / 621.94 65.11 / 65.11 Output Total 280 / 280 900 / 1300 950 / 950 Balance 1315.57 / 1315.57 -291.66 / -678.06 -884.89 / -884.89 Medical Nutrition Assessment Dietitian: Malnutrition Criteria Met Start: 04/12/22 15:13 Freq: Status: Active Protocol: Document 04/12/22 15:14 VLAD (Rec: 04/12/22 15:14 VLAD [id number]) Nutrition Malnutrition Evidence of Malnutrition Exists Yes Malnutrition (unspecified) Mild pro/jose Evidenced By Suboptimal Energy Intake ( Moderate),Weight Loss ( Moderate) Intake Problem Increased Nutrient Needs (specify) Etiology protein related to skin status and need for healing Signs/Symptoms as evidenced by diabetic ulcers L 2nd toe, diamond feet. Status Active Problem Inadequate Oral Intake Etiology related to mental status changes Signs/Symptoms as evidenced by NPO status. Status Active Problem Clinical Problem Acute Disease or Injury Related Malnutrition Etiology related physiological changes decreasing oral intakes Signs/Symptoms as evidenced by significant weight loss of 2% within 1 day as well as oral intakes less than or equal to 50% of estimated energy needs for at least 3 days. Status Active Problem Altered Nutrient-Related Laboratory Values Etiology related to renal / endocrine dysfunction Signs/Symptoms as evidenced by BUN 83, Cr 3.7 . Status Active Problem Recommendation Dietitian Recommendations/Changes Advance diet as able to Consistent Carbohydrate 2000kcal. Rec Ted BID to help w/ wound healing. Rec 120 ml glucerna shake TID w/ medpass for increased nutrition if consumed. If oral intakes do not resume within 24-48 hours, recommend use of artificial nutrition. Lab / Micro Data Result Diagrams: 04/13/22 05:00 04/13/22 05:00 Labs: Laboratory Results - last 24 hr 04/12/22 05:19: Differential Comment SCANNED 04/12/22 07:41: POC Glucose 104 04/12/22 11:47: POC Glucose 128 H 04/12/22 17:26: POC Glucose 146 H 04/12/22 20:11: POC Glucose 153 H 04/13/22 05:00: Sodium 139, Potassium 4.4, Chloride 113 H, Carbon Dioxide 16.0 L, BUN 88 H, Creatinine 4.08 H, Estim Creat Clear Calc 14.41, Est GFR (MDRD) Af Amer 15 L, Est GFR (MDRD) Non-Af 12 L, BUN/Creatinine Ratio 21.6 H, Glucose 143 H, Calcium 8.5, Phosphorus 4.9, Albumin 1.4 L 04/13/22 05:00: WBC 11.1 H, RBC 2.64 L, Hgb 7.2 L, Hct 23.0 L, MCV 87.1, MCH 27.3, MCHC 31.3 L, RDW Std Deviation 55.7 H, RDW Coeff of Fior 17.3 H, Plt Count 190, MPV 11.7, Immature Gran % (Auto) 1.700 H, Neut % (Auto) 81.3 H, Lymph % (Auto) 7.5 L, [place] % (Auto) 6.5, Eos % (Auto) 2.7, Baso % (Auto) 0.3, Absolute Neuts (auto) 9.1 H, Absolute Lymphs (auto) 0.84, Nucleated RBC % 0.2 04/13/22 05:00: Random Vancomycin 24.3 H Micro: Microbiology 04/11/22 12:30 Wound Abcess - Right Foot Gram Stain - Final 04/11/22 12:30 Wound Abcess - Right Foot Wound Culture - Preliminary Staphylococcus aureus 04/09/22 20:51 Wound - Left Foot Gram Stain - Final 04/09/22 20:51 Wound - Left Foot Wound Culture - Preliminary Meth. resistant Staph. aureus Alpha Hemolytic Streptococcus Gram positive elinor 04/09/22 20:51 Wound - Left Foot Anaerobic Culture - Preliminary Checking for anaerobes, further studies to follow. 04/09/22 18:40 Urine, Catheterized Urine Culture - Final Culture exhibits no growth. 04/09/22 17:12 Blood Culture (Wb) - Anticubital Right Blood Culture - Final Staphylococcus aureus 04/09/22 16:50 Blood Culture (Wb) - Anticubital Right Bacteria Detection (PCR) - Final Staphylococcus aureus mecA Resistance Marker 04/09/22 16:50 Blood Culture (Wb) - Anticubital Right Blood Culture - Final Meth. resistant Staph. aureus Rhythm Strip Rhythm Strip: Sinus Rhythm Rate: 60 Ectopy: None Physical Exam Const Constitutional Narrative: Resting comfortably in bed. Opens eyes to voice HEENT normocephalic and head/scalp atraumatic Eyes PERRL and EOMs intact bilaterally Neck supple General: trachea midline Chest inspection of chest normal Resp normal respiratory effort and no use of accessory muscles Auscultation: clear to auscultation bilaterally; Negative for rales, rhonchi or wheezes Cardio regular rate, regular rhythm, S1 normal heart sound, S2 normal heart sound, no murmurs, no rub and no gallops GI normal to inspection, nondistended, normoactive bowel sounds Extremity General Extremity: edema bilateral (2+) lower extremity Skin Skin Narrative: Wrapped lower extremities. Lesion noted on the finger General Skin Exam: erythema Neuro CN's II-XII intact bilaterally, moves all extremities and no focal motor deficits Psych Activity / Motor Behavior: restless Mood & Affect: labile affect Charges/Coding Visit Charges Inpatient E&M: 23117 Subs Hosp L3
[2022-04-13 06:26] LABS: Bedside Glucose 146 mg/dL (74-106)
--- NOTE | 2022-04-13 06:53 | PCM.RX.CS ---
Consult Type of Consult: Follow-up Suspected Infection: Sepsis Labs: Sodium 139 mmol/L (136-145) 04/13/22 05:00 Potassium 4.4 mmol/L (3.5-5.1) 04/13/22 05:00 Chloride 113 mmol/L (98-107) H 04/13/22 05:00 Carbon Dioxide 16.0 mmol/L (21.0-32.0) L 04/13/22 05:00 Anion Gap 10 (5-15) 04/12/22 05:19 BUN 88 mg/dL (7-18) H 04/13/22 05:00 Creatinine 4.08 mg/dL (0.55-1.02) H 04/13/22 05:00 Est GFR (MDRD) Af Amer 15 mL/min (>60) L 04/13/22 05:00 Est GFR (MDRD) Non-Af 12 mL/min (>60) L 04/13/22 05:00 BUN/Creatinine Ratio 21.6 RATIO (10-20) H 04/13/22 05:00 Glucose 143 mg/dL (74-106) H 04/13/22 05:00 Vancomycin Trough 29.2 ug/mL (5.0-15.0) H 04/11/22 21:30 Random Vancomycin 24.3 ug/mL (0.0-15.0) H 04/13/22 05:00 Microbiology: Microbiology 04/11/22 12:30 Wound Abcess - Right Foot Gram Stain - Final 04/11/22 12:30 Wound Abcess - Right Foot Wound Culture - Preliminary Staphylococcus aureus 04/11/22 12:30 Wound Abcess - Right Foot Anaerobic Culture - Preliminary 04/09/22 20:51 Wound - Left Foot Gram Stain - Final 04/09/22 20:51 Wound - Left Foot Wound Culture - Preliminary Meth. resistant Staph. aureus Alpha Hemolytic Streptococcus Gram positive elinor 04/09/22 20:51 Wound - Left Foot Anaerobic Culture - Preliminary Checking for anaerobes, further studies to follow. 04/09/22 18:40 Urine, Catheterized Urine Culture - Final Culture exhibits no growth. 04/09/22 17:12 Blood Culture (Wb) - Anticubital Right Blood Culture - Final Staphylococcus aureus 04/09/22 16:50 Blood Culture (Wb) - Anticubital Right Bacteria Detection (PCR) - Final Staphylococcus aureus mecA Resistance Marker 04/09/22 16:50 Blood Culture (Wb) - Anticubital Right Blood Culture - Final Meth. resistant Staph. aureus Goal Trough: 15-20 mcg/mL Pharmacy Plan for Drug Dosing: VANCOMYCIN LEVEL RECEIVED Current Vancomycin Dose: On hold Number of Doses Received: 2 Vancomycin Level: 24.3 Hours Since Last Dose: 54 Renal Function: sCr 4.08 mg/dL Renal Function Trend: stable-worsening Vancomycin Plan/Comments: Continue to hold vancomycin Pending Level: Random Vancomycin level @ 0600 04/14/22 Pharmacy Service will continue to monitor and adjust dosing as required. Labs to be done on [date and time ordered]: Random Vancomycin level @ 0600 04/14/22
--- NOTE | 2022-04-13 06:53 | PCM.PN.HOSP ---
Subjective Subjective Agitated overnight, biting her own finger. Dexmedetomidine started overnight, which calmed the patient. Objective Data Objective Data Vital Signs: Vital Signs Temp Pulse Resp BP Pulse Ox O2 Del Method 36.3 C L 62 15 105/59 L 99 Room Air 04/13/22 04:00 04/13/22 06:00 04/13/22 06:00 04/13/22 06:00 04/13/22 06:00 04/13/22 06:00 Oxygen Delivery Method Room Air Weight: 91.1 kg Body Mass Index (BMI) 29.0 Intake & Output: Intake and Output for Last 24 Hours 04/11/22 04/12/22 04/13/22 23:59 23:59 23:59 Intake Total 1595.57 / 1595.57 608.34 / 621.94 66.24 / 66.24 Output Total 280 / 280 900 / 1300 950 / 950 Balance 1315.57 / 1315.57 -291.66 / -678.06 -883.76 / -883.76 Medical Nutrition Assessment Dietitian: Malnutrition Criteria Met Start: 04/12/22 15:13 Freq: Status: Active Protocol: Document 04/12/22 15:14 KARL (Rec: 04/12/22 15:14 [facility] [id number]) Nutrition Malnutrition Evidence of Malnutrition Exists Yes Malnutrition (unspecified) Mild pro/jose Evidenced By Suboptimal Energy Intake ( Moderate),Weight Loss ( Moderate) Intake Problem Increased Nutrient Needs (specify) Etiology protein related to skin status and need for healing Signs/Symptoms as evidenced by diabetic ulcers L 2nd toe, diamond feet. Status Active Problem Inadequate Oral Intake Etiology related to mental status changes Signs/Symptoms as evidenced by NPO status. Status Active Problem Clinical Problem Acute Disease or Injury Related Malnutrition Etiology related physiological changes decreasing oral intakes Signs/Symptoms as evidenced by significant weight loss of 2% within 1 day as well as oral intakes less than or equal to 50% of estimated energy needs for at least 3 days. Status Active Problem Altered Nutrient-Related Laboratory Values Etiology related to renal / endocrine dysfunction Signs/Symptoms as evidenced by BUN 83, Cr 3.7 . Status Active Problem Recommendation Dietitian Recommendations/Changes Advance diet as able to Consistent Carbohydrate 2000kcal. Rec Ted BID to help w/ wound healing. Rec 120 ml glucerna shake TID w/ medpass for increased nutrition if consumed. If oral intakes do not resume within 24-48 hours, recommend use of artificial nutrition. Lab / Micro Data Result Diagrams: 04/13/22 05:00 04/13/22 05:00 Labs: Laboratory Results - last 24 hr 04/12/22 07:41: POC Glucose 104 04/12/22 11:47: POC Glucose 128 H 04/12/22 17:26: POC Glucose 146 H 04/12/22 20:11: POC Glucose 153 H 04/13/22 05:00: Sodium 139, Potassium 4.4, Chloride 113 H, Carbon Dioxide 16.0 L, BUN 88 H, Creatinine 4.08 H, Estim Creat Clear Calc 14.41, Est GFR (MDRD) Af Amer 15 L, Est GFR (MDRD) Non-Af 12 L, BUN/Creatinine Ratio 21.6 H, Glucose 143 H, Calcium 8.5, Phosphorus 4.9, Albumin 1.4 L 04/13/22 05:00: WBC 11.1 H, RBC 2.64 L, Hgb 7.2 L, Hct 23.0 L, MCV 87.1, MCH 27.3, MCHC 31.3 L, RDW Std Deviation 55.7 H, RDW Coeff of Fior 17.3 H, Plt Count 190, MPV 11.7, Immature Gran % (Auto) 1.700 H, Neut % (Auto) 81.3 H, Lymph % (Auto) 7.5 L, [place] % (Auto) 6.5, Eos % (Auto) 2.7, Baso % (Auto) 0.3, Absolute Neuts (auto) 9.1 H, Absolute Lymphs (auto) 0.84, Nucleated RBC % 0.2 04/13/22 05:00: Random Vancomycin 24.3 H 04/13/22 06:21: POC Glucose 146 H Micro: Microbiology 04/11/22 12:30 Wound Abcess - Right Foot Gram Stain - Final 04/11/22 12:30 Wound Abcess - Right Foot Wound Culture - Preliminary Staphylococcus aureus 04/11/22 12:30 Wound Abcess - Right Foot Anaerobic Culture - Preliminary 04/09/22 20:51 Wound - Left Foot Gram Stain - Final 04/09/22 20:51 Wound - Left Foot Wound Culture - Preliminary Meth. resistant Staph. aureus Alpha Hemolytic Streptococcus Gram positive elinor 04/09/22 20:51 Wound - Left Foot Anaerobic Culture - Preliminary Checking for anaerobes, further studies to follow. 04/09/22 18:40 Urine, Catheterized Urine Culture - Final Culture exhibits no growth. 04/09/22 17:12 Blood Culture (Wb) - Anticubital Right Blood Culture - Final Staphylococcus aureus 04/09/22 16:50 Blood Culture (Wb) - Anticubital Right Bacteria Detection (PCR) - Final Staphylococcus aureus mecA Resistance Marker 04/09/22 16:50 Blood Culture (Wb) - Anticubital Right Blood Culture - Final Meth. resistant Staph. aureus Rhythm Strip Rhythm Strip: Sinus Rhythm Rate: 60 Ectopy: None Physical Exam Const alert and no apparent distress Constitutional Narrative: Oriented to self and place but not the date. HEENT head/scalp atraumatic and moist oral mucous membranes Resp normal respiratory effort, no retractions, no use of accessory muscles and clear to auscultation bilaterally Cardio regular rate, regular rhythm, S1 normal heart sound and S2 normal heart sound GI normal to inspection, nondistended, normoactive bowel sounds, soft to palpation and non-tender Extremity Extremity Narrative: Bilateral feet are wrapped, did not remove. Neuro Sensorium / Orientation: awake, alert, oriented to person and oriented to place; Negative for oriented to time Psych affect normal Assessment & Plan Assessment/Plan (1) Cellulitis of both lower extremities: PLAN: Plan 1. Septic shock resolved due to MRSA osteomyelitis with bacteremia with acute sepsis related organ dysfunction evidenced by acute on chronic kidney disease, altered mental status. Lactic acid normal. On IV vancomycin and cefepime patient Blood cultures positive of MRSA. Wound culture: S. aureus, Alpha hemolytic strep and GPO s/p debridement on the 3rd Plan: continue IV vanc and cefepime follow up cultures 2. fight foot osteomyelitis of cuboid and base of 4th and 5th toes s/p debridement on the 3rd podiatry following if amputation required, likely would be BKA 3. Bacteremia likely 2/2 above + on the for 1 cultures repeat BCx 4. Acute kidney injury, Likely due to ATN Creatinine worse today, baseline around 2.7 04/11: Oliguria with positive fluid balance. Fashion Consultant Sales is consulted. 04/12: oliguric. nephrology following. Discussed with Dr. Romero. Plan is for IV furosemide today. Patient may very well likely require renal placement therapy. Recommend patient stay in the ICU because she does need line placement on the fifth. 04/13: urine outpt improved with furosemide, but creatinine worse again. [facility] nephrology--no need for PROFESSIONAL SYSTEM ADMINISTRATOR at this time. 5. encephalopathy, toxic-metabolic likely multifactorial: uremia, iatrogenic, and possible underlying psychiatric disorder started dexmedetomidine gtt, subsequently t on any imminent in the room right nowurned I started operating who has had Chandni Milagro. previously discontinued hydromorphone 6. Acute hyponatremia, hypovolemic: Resolved Admission sodium 127, baseline normal 136-144 range 7. Diabetes mellitus type II complicated with Charcot foot, polyneuropathy: Fair controlAccu-Chek insulin is covered with Humalog sliding scale. Patient on gabapentin. A1c 9.2. Started on scheduled Humalog insulin 10 units subcutaneous 3 times daily AC and Lantus dose increased. 04/11: Glucose is running low. Holding scheduled insulin . Patient not having adequate oral intake 8. CAD, ischemic cardiomyopathy: We will continue patient Plavix, statin, Coreg, not on MYLA inhibitor/ARB likely secondary to underlying renal disease. Will judiciously hydrate. 01/06/22 ECOH w/ EF 55%, normal diastolic function, trivial MVI, no significant valvular vegetations demonstrated. 04/11: EF 55%, mild concentric LVH, mild 2+ TR. RVSP 48 mmHg consistent with chronic HFpEF 9. Chronic anemia, AOCD: Admission hemoglobin 9.6, MCV normocytic range, baseline hemoglobin 8-9, stable, trend. 04/11: Hemoglobin dropped to 7.3. Hold Plavix. 10. Chronic conditions: Hyperlipidemia: We will continue patient home statin therapy. Restless leg syndrome: l continue patient home pramipexole regimen. Anxiety and depression: continue patient home bupropion and hydroxyzine regimen as well as paroxetine given clinical improvement and currently mentating appropriately. Chronic back pain: Patient with MRI of her spine in January 2022 with spinal stenosis with spinal surgery consultation with recommended continued conservative management secondary to significant high risk. Encourage positional changes, fall precautions, therapies consulted, cautiously continue patient low-dose Flexeril and chronic narcotic regimen as well as gabapentin given she is mentating at her baseline and blood pressures are appropriate at this time but low threshold to hold if becomes encephalopathic. Hypertension: Coreg, isosorbide held Obesity: Weight loss and lifestyle changes encouraged. 11. DVT prophylaxis: SCDs, heparin. 12. CODE STATUS: Full code Transfer out of the ICU. Charges/Coding Visit Charges Inpatient E&M: 79154 Subs Hosp L2
--- NOTE | 2022-04-13 08:52 | PCM.PN.REN ---
Subjective Subjective Resting quietly in bed. Does not answer questions but follows simple commands when asked. She was agitated overnight and started on precedex drip. Objective Data Objective Data Vital Signs: Vital Signs Temp Pulse Resp BP Pulse Ox O2 Del Method 97.5 F L 60 15 113/55 L 98 Room Air 04/13/22 08:00 04/13/22 08:00 04/13/22 08:00 04/13/22 08:00 04/13/22 08:00 04/13/22 08:00 Oxygen Delivery Method Room Air Weight: 91.1 kg Body Mass Index (BMI) 29.0 Intake & Output: Intake and Output for Last 24 Hours 04/11/22 04/12/22 04/13/22 23:59 23:59 23:59 Intake Total 1595.57 / 1595.57 608.34 / 621.94 75.28 / 75.28 Output Total 280 / 280 900 / 1300 950 / 950 Balance 1315.57 / 1315.57 -291.66 / -678.06 -874.72 / -874.72 Medical Nutrition Assessment Dietitian: Malnutrition Criteria Met Start: 04/12/22 15:13 Freq: Status: Active Protocol: Document 04/12/22 15:14 VLAD (Rec: 04/12/22 15:14 KARL [id number]) Nutrition Malnutrition Evidence of Malnutrition Exists Yes Malnutrition (unspecified) Mild pro/jose Evidenced By Suboptimal Energy Intake ( Moderate),Weight Loss ( Moderate) Intake Problem Increased Nutrient Needs (specify) Etiology protein related to skin status and need for healing Signs/Symptoms as evidenced by diabetic ulcers L 2nd toe, diamond feet. Status Active Problem Inadequate Oral Intake Etiology related to mental status changes Signs/Symptoms as evidenced by NPO status. Status Active Problem Clinical Problem Acute Disease or Injury Related Malnutrition Etiology related physiological changes decreasing oral intakes Signs/Symptoms as evidenced by significant weight loss of 2% within 1 day as well as oral intakes less than or equal to 50% of estimated energy needs for at least 3 days. Status Active Problem Altered Nutrient-Related Laboratory Values Etiology related to renal / endocrine dysfunction Signs/Symptoms as evidenced by BUN 83, Cr 3.7 . Status Active Problem Recommendation Dietitian Recommendations/Changes Advance diet as able to Consistent Carbohydrate 2000kcal. Rec Ted BID to help w/ wound healing. Rec 120 ml glucerna shake TID w/ medpass for increased nutrition if consumed. If oral intakes do not resume within 24-48 hours, recommend use of artificial nutrition. Lab / Micro Data Result Diagrams: 04/13/22 05:00 04/13/22 05:00 Labs: Laboratory Results - last 24 hr 04/12/22 11:47: POC Glucose 128 H 04/12/22 17:26: POC Glucose 146 H 04/12/22 20:11: POC Glucose 153 H 04/13/22 05:00: Sodium 139, Potassium 4.4, Chloride 113 H, Carbon Dioxide 16.0 L, BUN 88 H, Creatinine 4.08 H, Estim Creat Clear Calc 14.41, Est GFR (MDRD) Af Amer 15 L, Est GFR (MDRD) Non-Af 12 L, BUN/Creatinine Ratio 21.6 H, Glucose 143 H, Calcium 8.5, Phosphorus 4.9, Albumin 1.4 L 04/13/22 05:00: WBC 11.1 H, RBC 2.64 L, Hgb 7.2 L, Hct 23.0 L, MCV 87.1, MCH 27.3, MCHC 31.3 L, RDW Std Deviation 55.7 H, RDW Coeff of Fior 17.3 H, Plt Count 190, MPV 11.7, Immature Gran % (Auto) 1.700 H, Neut % (Auto) 81.3 H, Lymph % (Auto) 7.5 L, [place] % (Auto) 6.5, Eos % (Auto) 2.7, Baso % (Auto) 0.3, Absolute Neuts (auto) 9.1 H, Absolute Lymphs (auto) 0.84, Nucleated RBC % 0.2 04/13/22 05:00: Random Vancomycin 24.3 H 04/13/22 06:21: POC Glucose 146 H Micro: Microbiology 04/11/22 12:30 Wound Abcess - Right Foot Gram Stain - Final 04/11/22 12:30 Wound Abcess - Right Foot Wound Culture - Final Meth. resistant Staph. aureus 04/09/22 20:51 Wound - Left Foot Gram Stain - Final 04/09/22 20:51 Wound - Left Foot Wound Culture - Final Meth. resistant Staph. aureus Streptococcus mitis/ oralis Corynebacterium striatum 04/09/22 20:51 Wound - Left Foot Anaerobic Culture - Preliminary Checking for anaerobes, further studies to follow. 04/09/22 18:40 Urine, Catheterized Urine Culture - Final Culture exhibits no growth. 04/09/22 17:12 Blood Culture (Wb) - Anticubital Right Blood Culture - Final Staphylococcus aureus 04/09/22 16:50 Blood Culture (Wb) - Anticubital Right Bacteria Detection (PCR) - Final Staphylococcus aureus mecA Resistance Marker 04/09/22 16:50 Blood Culture (Wb) - Anticubital Right Blood Culture - Final Meth. resistant Staph. aureus Rhythm Strip Rhythm Strip: Sinus Rhythm Rate: 60 Ectopy: None Physical Exam Narrative General: Obtunded. Arousable with tactile stimuli but falls asleep quickly. Neck: Supple, no JVD. Heart: Normal S1, S2. No rubs, murmurs or gallops. Lungs: Clear to auscultation anteriorly. No wheezes rhonchi rales noted. On room air Abdominal: Normal bowel sounds, soft, nontender. Extremities: Both feet are wrapped in gauze bandages. There is no edema of the lower extremities above the gauze. There is no clubbing of the fingernails. : Indwelling Preston catheter with clear urine in bag Assessment & Plan Assessment/Plan (1) FELI (acute kidney injury): PLAN: FELI secondary to ischemic ATN related to septic shock. Serum creatinine 3.3 mg/dL on admission, today her creatinine is 4.08 mg/dL. Renal function did not improve with positive fluid balance. Now off IV fluids. We can still give IV bolus of fluid if MAP is consistently below 65 mmHg. Patient has been n.p.o. for the past few days due to aspiration risk. Since blood pressure was stable without need for IV vasopressor patient was given IV lasix. UOP has increased, 950ml over night and currently ~200ml in preston bag. The patient is at high risk for kidney replacement therapy. At this time there is no significant uremic symptoms, hyperkalemia, volume overload, or severely acidosis therefore there is no immediate need for kidney replacement therapy today. Patient was confused overnight and started on Precedex, confusion likely multifactorial. Dr. Romero spoke with patient's daughter, Trisha Dewey [phone], about possibility of dialysis Continue current effort to keep MAP above 65 mmHg. Current medications are reviewed. They are all appropriately dosed for her renal function. We will continue to follow the patient closely. Since there is no acute indication for DIRECTOR SELECTION AND ADMINISTRATION today, if patient able to come off of precedex she does not need to be in ICU per renal standpoint since no plans for temporary HD catheter/or no HD today (2) Chronic kidney disease, stage 4 (severe): PLAN: Baseline serum creatinine is around 2.00 to 2.40 mg/dL. The patient has underlying diabetic kidney disease. (3) Metabolic acidosis: PLAN: Serum bicarbonate level is low but stable at 16 mmol/L today. Suspect her acidosis is due to FELI/CKD along with poor tissue perfusion. There was no ketones on urine dipstick on 04/09/2022. Patient also received IV normal saline for volume expansion which can also contribute to non-anion gap metabolic acidosis At this time, acidosis is not severe enough to require urgent dialysis. I will continue to monitor serum bicarbonate. If IV fluid is needed, I would recommend using LR instead. (4) Septic shock: PLAN: Septic shock is likely secondary to cellulitis, diabetic foot infection +MRSA and possibly osteomyelitis. Antimicrobial coverage as per hospitalist and warp dresser. There has been some improvement as she has been off of IV vasopressor. WBC is also trending down. Nephrology plan discussed with hospitalist
[2022-04-13] MEDS: QUEtiapine 25 MG Tablet 50 MG PO ×2 (08:56→22:25)
[2022-04-13] MEDS: Pramipexole Di-HCl 1 MG Tablet 1.5 MG PO ×2 (08:57→22:26)
[2022-04-13] MEDS: buPROPion (XL) 150 MG TABLET.XL PO (08:58)
--- NOTE | 2022-04-13 09:10 | WOUNDNOTE ---
wound photo: left plantar foot
--- NOTE | 2022-04-13 09:11 | WOUNDNOTE ---
wound photo: right dorsolateral foot
--- NOTE | 2022-04-13 09:12 | WOUNDNOTE ---
wound photo: right plantar foot
[2022-04-13] MEDS: Cefepime HCl 2 GM in 0.9% NS 100 ML Minibag Q8 IV (09:50)
[2022-04-13] MEDS: 0.9% Saline Lock 10 ML Syringe IV ×2 (09:50→13:09)
[2022-04-13] MEDS: Lactated Ringers 1,000 ML 100 ML IV ×2 (10:41→20:41)
[2022-04-13] MEDS: CHLORHEXIDINE GLUC 2% CLOTH 1 EACH TOWELETTE TOPICAL (10:42)
[2022-04-13 10:45] LABS: Bedside Glucose 133 mg/dL (74-106)
--- NOTE | 2022-04-13 12:41 | PCM.PROGNOTE ---
Subjective Subjective Patient was seen today for follow up feet. She is in ICU, resting in bed. She has no complaints. Patient afebrile. WBC trending down - was was 11.1 this morning. Objective Data Objective Data Vital Signs: Vital Signs Temp Pulse Resp BP Pulse Ox O2 Del Method 97.5 F L 58 L 14 111/55 L 98 Room Air 04/13/22 12:00 04/13/22 12:00 04/13/22 12:00 04/13/22 12:00 04/13/22 12:00 04/13/22 12:00 Oxygen Delivery Method Room Air Weight: 91.1 kg Body Mass Index (BMI) 29.0 Intake & Output: Intake and Output for Last 24 Hours 04/11/22 04/12/22 04/13/22 23:59 23:59 23:59 Intake Total 1595.57 / 1595.57 608.34 / 621.94 385.28 / 385.28 Output Total 280 / 280 900 / 1300 1450 / 1450 Balance 1315.57 / 1315.57 -291.66 / -678.06 -1064.72 / -1064.72 Medical Nutrition Assessment Dietitian: Malnutrition Criteria Met Start: 04/12/22 15:13 Freq: Status: Active Protocol: Document 04/13/22 09:37 AG (Rec: 04/13/22 09:37 AG [id number]) Nutrition Malnutrition Evidence of Malnutrition Exists No Intake Problem Increased Nutrient Needs (specify) Etiology increased protein needs related to wounds Signs/Symptoms as evidenced by multiple wounds, DM foot infection to L bottom foot Status Active Problem Inadequate Oral Intake Etiology related to altered mental status Signs/Symptoms as evidenced by NPO status x 2 days Status Active Problem Recommendation Dietitian Recommendations/Changes recommend cardiac, 1600 calorie controlled, consistent CHO diet; continue Glucerna 120mL TID; will add Ted BID for wound healing when PO diet is advanced. Lab / Micro Data Result Diagrams: 04/13/22 05:00 04/13/22 05:00 Labs: Laboratory Results - last 24 hr 04/12/22 17:26: POC Glucose 146 H 04/12/22 20:11: POC Glucose 153 H 04/13/22 05:00: Sodium 139, Potassium 4.4, Chloride 113 H, Carbon Dioxide 16.0 L, BUN 88 H, Creatinine 4.08 H, Estim Creat Clear Calc 14.41, Est GFR (MDRD) Af Amer 15 L, Est GFR (MDRD) Non-Af 12 L, BUN/Creatinine Ratio 21.6 H, Glucose 143 H, Calcium 8.5, Phosphorus 4.9, Albumin 1.4 L 04/13/22 05:00: WBC 11.1 H, RBC 2.64 L, Hgb 7.2 L, Hct 23.0 L, MCV 87.1, MCH 27.3, MCHC 31.3 L, RDW Std Deviation 55.7 H, RDW Coeff of Fior 17.3 H, Plt Count 190, MPV 11.7, Immature Gran % (Auto) 1.700 H, Neut % (Auto) 81.3 H, Lymph % (Auto) 7.5 L, [place] % (Auto) 6.5, Eos % (Auto) 2.7, Baso % (Auto) 0.3, Absolute Neuts (auto) 9.1 H, Absolute Lymphs (auto) 0.84, Nucleated RBC % 0.2 04/13/22 05:00: Random Vancomycin 24.3 H 04/13/22 06:21: POC Glucose 146 H 04/13/22 10:39: POC Glucose 133 H Micro: Microbiology 04/11/22 12:30 Wound Abcess - Right Foot Gram Stain - Final 04/11/22 12:30 Wound Abcess - Right Foot Wound Culture - Final Meth. resistant Staph. aureus 04/09/22 20:51 Wound - Left Foot Gram Stain - Final 04/09/22 20:51 Wound - Left Foot Wound Culture - Final Meth. resistant Staph. aureus Streptococcus mitis/ oralis Corynebacterium striatum 04/09/22 20:51 Wound - Left Foot Anaerobic Culture - Preliminary Checking for anaerobes, further studies to follow. 04/09/22 18:40 Urine, Catheterized Urine Culture - Final Culture exhibits no growth. 04/09/22 17:12 Blood Culture (Wb) - Anticubital Right Blood Culture - Final Staphylococcus aureus 04/09/22 16:50 Blood Culture (Wb) - Anticubital Right Bacteria Detection (PCR) - Final Staphylococcus aureus mecA Resistance Marker 04/09/22 16:50 Blood Culture (Wb) - Anticubital Right Blood Culture - Final Meth. resistant Staph. aureus Rhythm Strip Rhythm Strip: Sinus Rhythm Rate: 60 Ectopy: None Physical Exam Const no apparent distress Extremity Extremity Narrative: Left foot: Ulceration plantar lateral midfoot foot down to fascia tissue and bone - tissues are healthy and viable with no evidence of infection - no drainage, no maloder, no erythema, no necrosis, no visible abscess; no other open lesions, no evidence of ischemia to the foot or ankle, CFT < 2 seconds to all toes, no edema. Right foot: Ulceration to the lateral midfoot probes to bone, there is no cellulitis, no erythema, no edema, no maloder, no necrosis - there is noted to be some brownish/white thick drainage from wound. No other open lesions, no erythema, no necrosis, no visible abscess; no other open lesions, no evidence of ischemia to the foot or ankle, CFT < 2 seconds to all toes, no edema. Assessment & Plan Assessment/Plan (1) Diabetic foot ulcers: (2) Diabetes mellitus with diabetic polyneuropathy: (3) Charcot's joint, right ankle and foot: (4) Osteomyelitis of metatarsal: PLAN: Plan Evaluation performed. Reviewed diagnostic data. Patient with 4th/5th metatarsal and cuboid osteomyelitis and Charcot foot- options include IV antibiotics and wound care vs amputation. From amputation standpoint, agree with Dr. Gann from amputation standpoint patient would do best with BKA level of amputation. However, clinically the right foot is improving with antibiotics and local wound care at this time- which we will continue with this approach. Wound care right foot: Iodoform gauze packing with overlying gauze, kerlix, abd pad, and brando dressing - change daily. Wound care left foot: Normal saline soln gauze wet to dry, but will switch to silver alginate and gauze, kerlix, abd pad, and brando dressing - change daily. No weightbearing bilateral foot. Patient on IV Vancomycin & Cefepime. Podiatry will continue to follow.
[2022-04-13] MEDS: HYDROmorphone 0.5 MG/0.5 ML SYRINGE IV ×2 (13:09→16:06)
[2022-04-13] MEDS: Insulin Lispro 100 UNIT/ML INSULN.PEN 10 UNIT SC (16:07)
[2022-04-13] MEDS: Insulin Lispro 100 UNIT/ML INSULN.PEN SC ×2 (16:07→22:39)
[2022-04-13 16:11] LABS: Bedside Glucose 204 mg/dL (74-106)
[2022-04-13] MEDS: HYDROmorphone 2 MG TABLET PO ×2 (19:40→23:45)
[2022-04-13] MEDS: Paroxetine 20 MG Tablet PO (22:26)
[2022-04-13] MEDS: Atorvastatin Calcium 80 MG Tablet PO (22:27)
[2022-04-13] MEDS: Carvedilol 6.25 MG Tablet PO (22:33)
[2022-04-13] MEDS: Acetaminophen 500 MG Tablet 1000 MG PO (22:34)
[2022-04-13 22:45] LABS: Bedside Glucose 282 mg/dL (74-106)
[2022-04-14 01:45] VITALS: BP 129/72; PULSE 81; RESP 18; TEMP 36; O2SAT 98
[2022-04-14 06:17] LABS: Absolute Lymphocyte Count 0.78 X10^3/uL (0.83-4.51); Basophil# 0.02 X10^3/uL; Basophil% 0.2 % (0-1); Eosinophil# 0.19 X10^3/uL; Eosinophils% 1.9 % (0-5); Hematocrit 22.7 % (37-47); Hemoglobin 7.4 g/dL (12.0-15.0); Lymphocyte # 0.78 X10^3/ul (0.83-4.51); Lymphocyte % 7.9 % (19-41); Mean Corp Hgb Conc 32.6 g/dL (32-36); Mean Corpuscular Hgb 27.4 pg (27.0-32.0); Mean Corpuscular Volume 84.1 fL (81-99); Monocyte# 0.44 X10^3/uL; Monocyte% 4.5 % (0-10); NRBC Flagged by Analyzer 0 % (0-5); Neutrophil # 7.98 X10^3/uL (2.7-7.7); Neutrophil % 81.2 % (47-70); POSITIVE MORPHOLOGY YES; Platelet Count 238 K/mm3 (150-450); RBC Distribution Width CV 17.2 % (11.6-14.6); RBC Distribution Width SD 52.5 fl (35.1-43.9); White Blood Count 9.8 K/mm3 (4.4-11.0)
[2022-04-14] MEDS: Acetaminophen 500 MG Tablet 1000 MG PO ×2 (06:23→20:44)
[2022-04-14] MEDS: HYDROmorphone 2 MG TABLET PO (06:23)
[2022-04-14] MEDS: Insulin Lispro 100 UNIT/ML INSULN.PEN 10 UNIT SC ×2 (06:24→17:34)
[2022-04-14] MEDS: Insulin Lispro 100 UNIT/ML INSULN.PEN SC (06:24)
[2022-04-14] MEDS: Lactated Ringers 1,000 ML 100 ML IV ×2 (06:25→17:29)
[2022-04-14 06:34] LABS: Differential Indicated SCAN CRITERIA MET
[2022-04-14 06:35] LABS: Bedside Glucose 215 mg/dL (74-106)
[2022-04-14 06:47] LABS: Vancomycin, Random Level 22.4 ug/mL (0.0-15.0)
[2022-04-14 06:50] LABS: Albumin, Serum 1.3 g/dL (3.2-5.0); Anion Gap 9 (5-15); BUN 81 mg/dL (7-18); BUN/Creat Ratio 20.2 RATIO (10-20); Calcium,Total 8.2 mg/dL (8.5-10.1); Chloride 111 mmol/L (98-107); EST Glomerular Filtration Rate 12 mL/min (>60); Est Glom Filt Rate - Afr Amer 15 mL/min (>60); Glucose 229 mg/dL (74-106); Phosphorus 3.8 mg/dL (2.5-4.9); Potassium 4.1 mmol/L (3.5-5.1); Sodium Level 136 mmol/L (136-145)
--- NOTE | 2022-04-14 07:17 | PN.HOSP_ITS ---
Subjective Subjective Complains of abdominal pain and leg pain Objective Data Objective Data Vital Signs: Vital Signs Temp Pulse Resp BP Pulse Ox O2 Del Method 36.0 C L 81 18 129/72 H 98 Room Air 04/14/22 01:45 04/14/22 01:45 04/14/22 01:45 04/14/22 01:45 04/14/22 01:45 04/14/22 02:00 Oxygen Delivery Method Room Air Weight: 91.6 kg Body Mass Index (BMI) 29.0 Intake & Output: Intake and Output for Last 24 Hours 04/12/22 04/13/22 04/14/22 23:59 23:59 23:59 Intake Total 608.34 / 621.94 2060.28 / 2391.95 1213.34 / 1213.34 Output Total 900 / 1300 3150 / 3150 1000 / 1000 Balance -291.66 / -678.06 -1089.72 / -758.05 213.34 / 213.34 Medical Nutrition Assessment Dietitian: Malnutrition Criteria Met Start: 04/12/22 15:13 Freq: Status: Active Protocol: Document 04/13/22 09:37 AG (Rec: 04/13/22 09:37 AG [id number]) Nutrition Malnutrition Evidence of Malnutrition Exists No Intake Problem Increased Nutrient Needs (specify) Etiology increased protein needs related to wounds Signs/Symptoms as evidenced by multiple wounds, DM foot infection to L bottom foot Status Active Problem Inadequate Oral Intake Etiology related to altered mental status Signs/Symptoms as evidenced by NPO status x 2 days Status Active Problem Recommendation Dietitian Recommendations/Changes recommend cardiac, 1600 calorie controlled, consistent CHO diet; continue Glucerna 120mL TID; will add Ted BID for wound healing when PO diet is advanced. Lab / Micro Data Result Diagrams: 04/14/22 06:05 04/14/22 06:05 Labs: Laboratory Results - last 24 hr 04/13/22 10:39: POC Glucose 133 H 04/13/22 16:04: POC Glucose 204 H 04/13/22 22:39: POC Glucose 282 H 04/14/22 06:05: Random Vancomycin 22.4 H 04/14/22 06:05: Sodium 136, Potassium 4.1, Chloride 111 H, Carbon Dioxide 16.0 L , Anion Gap 9, BUN 81 H, Creatinine 4.00 H, Estim Creat Clear Calc 14.70, Est GFR (MDRD) Af Amer 15 L, Est GFR (MDRD) Non-Af 12 L, BUN/Creatinine Ratio 20.2 H , Glucose 229 H, Calcium 8.2 L, Phosphorus 3.8, Albumin 1.3 L 04/14/22 06:05: WBC 9.8, RBC 2.70 L, Hgb 7.4 L, Hct 22.7 L, MCV 84.1, MCH 27.4, MCHC 32.6, RDW Std Deviation 52.5 H, RDW Coeff of Fior 17.2 H, Plt Count 238, MPV 12.0, Immature Gran % (Auto) 4.300 H, Neut % (Auto) 81.2 H, Lymph % (Auto) 7.9 L , [place] % (Auto) 4.5, Eos % (Auto) 1.9, Baso % (Auto) 0.2, Absolute Neuts (auto) 8.0 H, Absolute Lymphs (auto) 0.78 L, Nucleated RBC % 0 04/14/22 06:20: POC Glucose 215 H Micro: Microbiology 04/11/22 12:30 Wound Abcess - Right Foot Gram Stain - Final 04/11/22 12:30 Wound Abcess - Right Foot Wound Culture - Final Meth. resistant Staph. aureus 04/09/22 20:51 Wound - Left Foot Gram Stain - Final 04/09/22 20:51 Wound - Left Foot Wound Culture - Final Meth. resistant Staph. aureus Streptococcus mitis/ oralis Corynebacterium striatum 04/09/22 20:51 Wound - Left Foot Anaerobic Culture - Preliminary Checking for anaerobes, further studies to follow. 04/09/22 18:40 Urine, Catheterized Urine Culture - Final Culture exhibits no growth. 04/09/22 17:12 Blood Culture (Wb) - Anticubital Right Blood Culture - Final Staphylococcus aureus 04/09/22 16:50 Blood Culture (Wb) - Anticubital Right Bacteria Detection (PCR) - Final Staphylococcus aureus mecA Resistance Marker 04/09/22 16:50 Blood Culture (Wb) - Anticubital Right Blood Culture - Final Meth. resistant Staph. aureus Rhythm Strip Rhythm Strip: Sinus Rhythm Rate: 60 Ectopy: None Physical Exam Const no apparent distress Orientation / Consciousness: confused Resp normal respiratory effort, no retractions, no use of accessory muscles and clear to auscultation bilaterally Cardio regular rate, regular rhythm, S1 normal heart sound and S2 normal heart sound GI normal to inspection, nondistended, normoactive bowel sounds, soft to palpation, non-tender and non-distended Extremity Extremity Narrative: bilateral feet and ankles wrapped--did not remove. Assessment & Plan Assessment/Plan (1) Cellulitis of both lower extremities: PLAN: Plan 1. Septic shock resolved due to MRSA osteomyelitis with bacteremia with acute sepsis related organ dysfunction evidenced by acute on chronic kidney disease, altered mental status. Lactic acid normal. On IV vancomycin and cefepime patient Blood cultures positive of MRSA. Wound culture: S. aureus, Alpha hemolytic strep and GPO s/p debridement on the Plan: * continue IV vanc and cefepime * follow up cultures 2. fight foot osteomyelitis of cuboid and base of 4th and 5th toes s/p debridement on the podiatry following if amputation required, likely would be BKA 3. Bacteremia likely 2/2 above + on the for 1 cultures repeat BCx 04/13: pending 4. Acute kidney injury, Likely due to ATN Creatinine worse today, baseline around 2.7 04/11: Oliguria with positive fluid balance. Ion Implant Machine Operator is consulted. 04/12: oliguric. nephrology following. Discussed with Dr. Romero. Plan is for IV furosemide today. Patient may very well likely require renal placement therapy. Recommend patient stay in the ICU because she does need line placement on the fifth. 04/13: urine outpt improved with furosemide, but creatinine worse again. nephrology--no need for BARRATTE OPERATOR at this time. 04/14: non-oliguric. creatinine improved to 4 5. encephalopathy, toxic-metabolic likely multifactorial: uremia, iatrogenic, and possible underlying psychiatric disorder ongoing DC hydromorphone. 6. Acute hyponatremia, hypovolemic: Resolved Admission sodium 127, baseline normal 136-144 range 7. Diabetes mellitus type II complicated with Charcot foot, polyneuropathy: Fair controlAccu-Chek insulin is covered with Humalog sliding scale. Patient on gabapentin. A1c 9.2. Started on scheduled Humalog insulin 10 units subcutaneous 3 times daily AC and Lantus dose increased. 04/11: Glucose is running low. Holding scheduled insulin . Patient not having adequate oral intake 8. CAD, ischemic cardiomyopathy: We will continue patient Plavix, statin, Coreg, not on MYLA inhibitor/ARB likely secondary to underlying renal disease. Will judiciously hydrate. 01/06/22 ECOH w/ EF 55%, normal diastolic function, trivial MVI, no significant valvular vegetations demonstrated. 04/11: EF 55%, mild concentric LVH, mild 2+ TR. RVSP 48 mmHg consistent with chronic HFpEF 9. Chronic anemia, AOCD: Admission hemoglobin 9.6, MCV normocytic range, baseline hemoglobin 8-9, stable, trend. 04/11: Hemoglobin dropped to 7.3. Hold Plavix. 10. Chronic conditions: * Hyperlipidemia: We will continue patient home statin therapy. * Restless leg syndrome: l continue patient home pramipexole regimen. * Anxiety and depression: continue patient home bupropion and hydroxyzine regimen as well as paroxetine given clinical improvement and currently mentati ng appropriately. * Chronic back pain: Patient with MRI of her spine in January 2022 with spinal stenosis with spinal surgery consultation with recommended continued conservative management secondary to significant high risk. Encourage positional changes, fall precautions, therapies consulted, cautiously continue patient low-dose Flexeril and chronic narcotic regimen as well as gabapentin given she is mentating at her baseline and blood pressures are appropriate at this time but low threshold to hold if becomes encephalopathic. * Hypertension: Coreg, isosorbide held * Obesity: Weight loss and lifestyle changes encouraged. 11. DVT prophylaxis: SCDs, heparin. 12. CODE STATUS: Full code Charges/Coding Visit Charges Inpatient E&M: 08447 Subs Hosp L2
--- NOTE | 2022-04-14 07:23 | PN.CC_ITS ---
Assessment & Plan Assessment/Plan (1) Septic shock: PLAN: Plan RECOMMENDATIONS: 1. Await nephrology recommendations 2. Continue antimicrobials as ordered. 3. Monitor blood counts daily and transfuse if hemoglobin drops below 7 g/dL. 4. Continue Seroquel at the current dosing 5. Hemodynamically stable on room air. Will sign off from a critical care perspective 6. Continue Protonix daily. IMPRESSIONS: 1. Septic shock Resolved. The patient presented to the hospital with sepsis due to MRSA osteomyelitis/bacteremia with acute sepsis related organ dysfunction as evidenced by acute on chronic kidney disease and altered mentation. Ultimately, the patient developed fluid refractory hypotension, which necessitated the initiation of vasopressor support. This has been subsequently discontinued on 04/11/2022. Plan to continue antimicrobials as ordered per infectious disease. Podiatry is following to assist with medical management. Echocardiogram was unremarkable for the presence of valvular vegetations. Likely does not require continued ICU level care for this problem. Given that she is hemodynamically stable on room air, will sign off from a critical care perspective 2. Acute on chronic kidney disease Likely prerenal/ischemic ATN in the setting of #1. Continue to monitor urine output. Patient appears to have responded to Lasix therapy. Await nephrology recommendations on dialysis. Continue to avoid nephrotoxic medications. 3. Encephalopathy Acutely worse overnight. Likely metabolic versus polypharmacy in etiology. Increase Seroquel. Wean Precedex.. CT head was unremarkable. Previous ABG was appropriate. 4. Anemia The patient presented with acute on chronic anemia. Hemoglobin this morning was noted to be 7.3 g/dL. Plan to monitor blood counts and transfuse if hemoglobin drops below 7 g/dL. Continue Protonix. 5. History of coronary artery disease/anemia/hypertension/diabetes mellitus/hyperlipidemia/anxiety/depression/chronic pain syndrome Complicates care, management, recovery and prognosis. Recommend holding home Flexeril, Neurontin, hydroxyzine and melatonin, pending improvement in mental state. In addition, continue to hold home antihypertensives. Subjective Subjective Patient transferred out of the intensive care unit yesterday. No acute issues noted overnight. Patient has remained hemodynamically stable on room air. Patient continues to report chronic pain issues. Patient appears to be more appropriate today. Objective Data Objective Data Vital Signs: Vital Signs Temp Pulse Resp BP Pulse Ox O2 Del Method 36.0 C L 81 18 129/72 H 98 Room Air 04/14/22 01:45 04/14/22 01:45 04/14/22 01:45 04/14/22 01:45 04/14/22 01:45 04/14/22 02:00 Oxygen Delivery Method Room Air Weight: 91.6 kg Body Mass Index (BMI) 29.0 Intake & Output: Intake and Output for Last 24 Hours 04/12/22 04/13/22 04/14/22 23:59 23:59 23:59 Intake Total 608.34 / 621.94 2060.28 / 2391.95 1213.34 / 1213.34 Output Total 900 / 1300 3150 / 3150 1000 / 1000 Balance -291.66 / -678.06 -1089.72 / -758.05 213.34 / 213.34 Medical Nutrition Assessment Dietitian: Malnutrition Criteria Met Start: 04/12/22 15:13 Freq: Status: Active Protocol: Document 04/13/22 09:37 AG (Rec: 04/13/22 09:37 AG [id number]) Nutrition Malnutrition Evidence of Malnutrition Exists No Intake Problem Increased Nutrient Needs (specify) Etiology increased protein needs related to wounds Signs/Symptoms as evidenced by multiple wounds, DM foot infection to L bottom foot Status Active Problem Inadequate Oral Intake Etiology related to altered mental status Signs/Symptoms as evidenced by NPO status x 2 days Status Active Problem Recommendation Dietitian Recommendations/Changes recommend cardiac, 1600 calorie controlled, consistent CHO diet; continue Glucerna 120mL TID; will add Ted BID for wound healing when PO diet is advanced. Lab / Micro Data Attestation: I reviewed the patient's lab results. Result Diagrams: 04/14/22 06:05 04/14/22 06:05 Labs: Laboratory Results - last 24 hr 04/13/22 10:39: POC Glucose 133 H 04/13/22 16:04: POC Glucose 204 H 04/13/22 22:39: POC Glucose 282 H 04/14/22 06:05: Random Vancomycin 22.4 H 04/14/22 06:05: Sodium 136, Potassium 4.1, Chloride 111 H, Carbon Dioxide 16.0 L , Anion Gap 9, BUN 81 H, Creatinine 4.00 H, Estim Creat Clear Calc 14.70, Est GFR (MDRD) Af Amer 15 L, Est GFR (MDRD) Non-Af 12 L, BUN/Creatinine Ratio 20.2 H , Glucose 229 H, Calcium 8.2 L, Phosphorus 3.8, Albumin 1.3 L 04/14/22 06:05: WBC 9.8, RBC 2.70 L, Hgb 7.4 L, Hct 22.7 L, MCV 84.1, MCH 27.4, MCHC 32.6, RDW Std Deviation 52.5 H, RDW Coeff of Fior 17.2 H, Plt Count 238, MPV 12.0, Immature Gran % (Auto) 4.300 H, Neut % (Auto) 81.2 H, Lymph % (Auto) 7.9 L , [place] % (Auto) 4.5, Eos % (Auto) 1.9, Baso % (Auto) 0.2, Absolute Neuts (auto) 8.0 H, Absolute Lymphs (auto) 0.78 L, Nucleated RBC % 0 04/14/22 06:20: POC Glucose 215 H Micro: Microbiology 04/11/22 12:30 Wound Abcess - Right Foot Gram Stain - Final 04/11/22 12:30 Wound Abcess - Right Foot Wound Culture - Final Meth. resistant Staph. aureus 04/09/22 20:51 Wound - Left Foot Gram Stain - Final 04/09/22 20:51 Wound - Left Foot Wound Culture - Final Meth. resistant Staph. aureus Streptococcus mitis/ oralis Corynebacterium striatum 04/09/22 20:51 Wound - Left Foot Anaerobic Culture - Preliminary Checking for anaerobes, further studies to follow. 04/09/22 18:40 Urine, Catheterized Urine Culture - Final Culture exhibits no growth. 04/09/22 17:12 Blood Culture (Wb) - Anticubital Right Blood Culture - Final Staphylococcus aureus 04/09/22 16:50 Blood Culture (Wb) - Anticubital Right Bacteria Detection (PCR) - Final Staphylococcus aureus mecA Resistance Marker 04/09/22 16:50 Blood Culture (Wb) - Anticubital Right Blood Culture - Final Meth. resistant Staph. aureus Rhythm Strip Rhythm Strip: Sinus Rhythm Rate: 60 Ectopy: None Physical Exam Const Constitutional Narrative: Resting comfortably in bed. Opens eyes to voice General Appearance: cooperative HEENT normocephalic and head/scalp atraumatic Eyes PERRL and EOMs intact bilaterally Neck supple General: trachea midline Chest inspection of chest normal Resp normal respiratory effort and no use of accessory muscles Auscultation: clear to auscultation bilaterally; Negative for rales, rhonchi or wheezes Cardio regular rate, regular rhythm, S1 normal heart sound, S2 normal heart sound, no murmurs, no rub and no gallops GI normal to inspection, nondistended, normoactive bowel sounds Extremity General Extremity: Negative for edema Skin Skin Narrative: Wrapped lower extremities. Lesion noted on the finger without signs of infection General Skin Exam: erythema Neuro CN's II-XII intact bilaterally, moves all extremities and no focal motor deficits Neuro Narrative: The patient is quite somnolent at this time. Charges/Coding Visit Charges Inpatient E&M: 22313 Subs Hosp L2
[2022-04-14 07:30] LABS: Hypochromasia 1+
--- NOTE | 2022-04-14 07:56 | PCM.RX.CS ---
Consult Pharmacy has been consulted to manage selected antiobiotic: Vancomycin Type of Consult: Follow-up Suspected Infection: Sepsis Prior Doses of Antibiotics Received/Current Regimen: 750MG on 04/10/22 @ 2307 2000mg on 04/09/22 @ 2233 Labs: Sodium 136 mmol/L (136-145) 04/14/22 06:05 Potassium 4.1 mmol/L (3.5-5.1) 04/14/22 06:05 Chloride 111 mmol/L (98-107) H 04/14/22 06:05 Carbon Dioxide 16.0 mmol/L (21.0-32.0) L 04/14/22 06:05 Anion Gap 9 (5-15) 04/14/22 06:05 BUN 81 mg/dL (7-18) H 04/14/22 06:05 Creatinine 4.00 mg/dL (0.55-1.02) H 04/14/22 06:05 Est GFR (MDRD) Af Amer 15 mL/min (>60) L 04/14/22 06:05 Est GFR (MDRD) Non-Af 12 mL/min (>60) L 04/14/22 06:05 BUN/Creatinine Ratio 20.2 RATIO (10-20) H 04/14/22 06:05 Glucose 229 mg/dL (74-106) H 04/14/22 06:05 Vancomycin Trough 29.2 ug/mL (5.0-15.0) H 04/11/22 21:30 Random Vancomycin 22.4 ug/mL (0.0-15.0) H 04/14/22 06:05 Microbiology: Microbiology 04/11/22 12:30 Wound Abcess - Right Foot Gram Stain - Final 04/11/22 12:30 Wound Abcess - Right Foot Wound Culture - Final Meth. resistant Staph. aureus 04/11/22 12:30 Wound Abcess - Right Foot Anaerobic Culture - Final No anaerobic bacteria isolated. 04/09/22 20:51 Wound - Left Foot Gram Stain - Final 04/09/22 20:51 Wound - Left Foot Wound Culture - Final Meth. resistant Staph. aureus Streptococcus mitis/ oralis Corynebacterium striatum 04/09/22 20:51 Wound - Left Foot Anaerobic Culture - Preliminary Checking for anaerobes, further studies to follow. 04/09/22 18:40 Urine, Catheterized Urine Culture - Final Culture exhibits no growth. 04/09/22 17:12 Blood Culture (Wb) - Anticubital Right Blood Culture - Final Staphylococcus aureus 04/09/22 16:50 Blood Culture (Wb) - Anticubital Right Bacteria Detection (PCR) - Final Staphylococcus aureus mecA Resistance Marker 04/09/22 16:50 Blood Culture (Wb) - Anticubital Right Blood Culture - Final Meth. resistant Staph. aureus Weight used for dosin kg Estimated Creatinine Clearance: 14.70 Goal Trough: 15-20 mcg/mL Pharmacy Plan for Drug Dosing: Continue to hold Vancomycin until random vancomycin level is less then 20. Pharmacy Service will continue to monitor and adjust dosing as required. Follow-Up Labs: Trough Vancomycin Labs to be done on [date and time ordered]: 04/15/22 @ 0600
[2022-04-14 08:16] VITALS: BP 116/63; PULSE 74; RESP 17; TEMP 36.2; O2SAT 100
--- NOTE | 2022-04-14 08:23 | PCM.PN.REN ---
Subjective Subjective Resting in bed, awake, more alert today. Able to answer questions and follow commands. Denies any complaints. Objective Data Objective Data Vital Signs: Vital Signs Temp Pulse Resp BP Pulse Ox O2 Del Method 97.1 F L 74 17 116/63 100 Room Air 04/14/22 08:16 04/14/22 08:16 04/14/22 08:16 04/14/22 08:16 04/14/22 08:16 04/14/22 08:16 Oxygen Delivery Method Room Air Weight: 91.6 kg Body Mass Index (BMI) 29.0 Intake & Output: Intake and Output for Last 24 Hours 04/12/22 04/13/22 04/14/22 23:59 23:59 23:59 Intake Total 608.34 / 621.94 2060.28 / 2391.95 1213.34 / 1213.34 Output Total 900 / 1300 3150 / 3150 1000 / 1000 Balance -291.66 / -678.06 -1089.72 / -758.05 213.34 / 213.34 Medical Nutrition Assessment Dietitian: Malnutrition Criteria Met Start: 04/12/22 15:13 Freq: Status: Active Protocol: Document 04/13/22 09:37 AG (Rec: 04/13/22 09:37 AG [id number]) Nutrition Malnutrition Evidence of Malnutrition Exists No Intake Problem Increased Nutrient Needs (specify) Etiology increased protein needs related to wounds Signs/Symptoms as evidenced by multiple wounds, DM foot infection to L bottom foot Status Active Problem Inadequate Oral Intake Etiology related to altered mental status Signs/Symptoms as evidenced by NPO status x 2 days Status Active Problem Recommendation Dietitian Recommendations/Changes recommend cardiac, 1600 calorie controlled, consistent CHO diet; continue Glucerna 120mL TID; will add Ted BID for wound healing when PO diet is advanced. Lab / Micro Data Result Diagrams: 04/14/22 06:05 04/14/22 06:05 Labs: Laboratory Results - last 24 hr 04/13/22 10:39: POC Glucose 133 H 04/13/22 16:04: POC Glucose 204 H 04/13/22 22:39: POC Glucose 282 H 04/14/22 06:05: Random Vancomycin 22.4 H 04/14/22 06:05: Sodium 136, Potassium 4.1, Chloride 111 H, Carbon Dioxide 16.0 L, Anion Gap 9, BUN 81 H, Creatinine 4.00 H, Estim Creat Clear Calc 14.70, Est GFR (MDRD) Af Amer 15 L, Est GFR (MDRD) Non-Af 12 L, BUN/Creatinine Ratio 20.2 H, Glucose 229 H, Calcium 8.2 L, Phosphorus 3.8, Albumin 1.3 L 04/14/22 06:05: WBC 9.8, RBC 2.70 L, Hgb 7.4 L, Hct 22.7 L, MCV 84.1, MCH 27.4, MCHC 32.6, RDW Std Deviation 52.5 H, RDW Coeff of Fior 17.2 H, Plt Count 238, MPV 12.0, Immature Gran % (Auto) 4.300 H, Neut % (Auto) 81.2 H, Lymph % (Auto) 7.9 L, [place] % (Auto) 4.5, Eos % (Auto) 1.9, Baso % (Auto) 0.2, Absolute Neuts (auto) 8.0 H, Absolute Lymphs (auto) 0.78 L, Nucleated RBC % 0, Hypochromasia 1+ 04/14/22 06:20: POC Glucose 215 H Micro: Microbiology 04/11/22 12:30 Wound Abcess - Right Foot Gram Stain - Final 04/11/22 12:30 Wound Abcess - Right Foot Wound Culture - Final Meth. resistant Staph. aureus 04/11/22 12:30 Wound Abcess - Right Foot Anaerobic Culture - Final No anaerobic bacteria isolated. 04/09/22 20:51 Wound - Left Foot Gram Stain - Final 04/09/22 20:51 Wound - Left Foot Wound Culture - Final Meth. resistant Staph. aureus Streptococcus mitis/ oralis Corynebacterium striatum 04/09/22 20:51 Wound - Left Foot Anaerobic Culture - Preliminary Checking for anaerobes, further studies to follow. 04/09/22 18:40 Urine, Catheterized Urine Culture - Final Culture exhibits no growth. 04/09/22 17:12 Blood Culture (Wb) - Anticubital Right Blood Culture - Final Staphylococcus aureus 04/09/22 16:50 Blood Culture (Wb) - Anticubital Right Bacteria Detection (PCR) - Final Staphylococcus aureus mecA Resistance Marker 04/09/22 16:50 Blood Culture (Wb) - Anticubital Right Blood Culture - Final Meth. resistant Staph. aureus Rhythm Strip Rhythm Strip: Sinus Rhythm Rate: 60 Ectopy: None Physical Exam Narrative General: Alert and oriented to person and place. Some confusion to recent events. Neck: Supple, no JVD. Heart: Normal S1, S2. No rubs, murmurs or gallops. Lungs: Clear to auscultation anteriorly. No wheezes, rhonchi, rales noted. On room air Abdominal: Normal bowel sounds, soft, nontender. Extremities: Both feet are wrapped in gauze bandages. No edema : Indwelling Tirado catheter with clear urine in bag Assessment & Plan Assessment/Plan (1) FELI (acute kidney injury): PLAN: -FELI secondary to ischemic ATN related to septic shock. Patient was oliguric but now UOP picking up. -Serum creatinine 3.3 mg/dL on admission, peaked 4.08 mg/dL on 04/13 and today creatinine is 4.00 mg/dL. Urine output is picking up, patient had 3 L urine output yesterday. -At this time there is no significant uremic symptoms, hyperkalemia, volume overload, or severe acidosis therefore there is no immediate need for kidney replacement therapy today. -Today I briefly spoke to patient that she was possibly heading towards needing ELECTRON BEAM OPERATOR, patient asked appropriate questions. I explained to her today that there is no acute need for ELECTRON BEAM OPERATOR today and that we will continue monitor renal function closely. Dr. Romero spoke with patient's daughter, Trisha Dewey [phone], about possibility of dialysis -Current medications are reviewed. They are all appropriately dosed for her renal function. We will continue to follow the patient closely. - recommend to continue on IVF for another day. Patient is now eating. -Continue to monitor renal function (2) Chronic kidney disease, stage 4 (severe): PLAN: Baseline serum creatinine is around 2.00 to 2.40 mg/dL. The patient has underlying diabetic kidney disease. (3) Metabolic acidosis: PLAN: Serum bicarbonate level is low but stable at 16 mmol/L today. We will start oral bicarb Suspect her acidosis is due to FELI/CKD along with poor tissue perfusion. There was no ketones on urine dipstick on 04/09/2022. Patient also received IV normal saline for volume expansion which can also contribute to non-anion gap metabolic acidosis At this time, acidosis is not severe enough to require urgent dialysis. I will continue to monitor serum bicarbonate. Currently on LR. (4) Septic shock: PLAN: Septic shock is likely secondary to cellulitis, diabetic foot infection +MRSA and possibly osteomyelitis. Antimicrobial coverage as per hospitalist and vibrating screen operator. There has been some improvement as she has been off of IV vasopressor. WBC is trending down, normal today. Nephrology plan discussed with hospitalist
[2022-04-14] MEDS: Cefepime HCl 2 GM in 0.9% NS 100 ML Minibag Q8 IV (09:27)
[2022-04-14] MEDS: buPROPion (XL) 150 MG TABLET.XL PO (09:35)
[2022-04-14] MEDS: Pramipexole Di-HCl 1 MG Tablet 1.5 MG PO ×2 (09:35→20:43)
[2022-04-14 11:08] VITALS: BP 98/61; PULSE 67; RESP 16; TEMP 36.4; O2SAT 100
[2022-04-14] MEDS: Ensure Clear 120 ML Liquid PO ×3 (11:27→20:46)
[2022-04-14 12:16] LABS: Bedside Glucose 88 mg/dL (74-106)
--- NOTE | 2022-04-14 12:25 | NURSING ---
Patients cousin Caren Trevino in to visit and wanted information RE patients status. Dr. Prado or the staff gave Caren information as she was not on the patients contact list. Ms. Trevnio was upset by this as she used to be on that list and I don't know why I'm not anymore. This nurse called patients daughter Trisha Rabago and asked if Ms. Trevino was aloud to have information and be added to the contact list as pt is confused at this time. Trisha did agree that this RN could give Ms. Trevino information on patient and add her to the contact list.
[2022-04-14 13:40] VITALS: BP 98/57; PULSE 66; RESP 12; TEMP 36.1; O2SAT 100
[2022-04-14 14:10] LABS: Bedside Glucose 135 mg/dL (74-106)
--- NOTE | 2022-04-14 14:28 | CASEMGMT ---
Social Work SW did attempt to speak w/pt, however pt is sleeping, as per RN has been resting all day. SW will follow up tomorrow w/pt regarding discharge plan. FRANCISCO Elaine
[2022-04-14 16:36] VITALS: BP 132/77; PULSE 73; RESP 14; TEMP 36.3; O2SAT 100
[2022-04-14 17:00] LABS: Bedside Glucose 136 mg/dL (74-106)
[2022-04-14 20:36] VITALS: BP 121/84; PULSE 81; RESP 16; TEMP 36.5; O2SAT 99
[2022-04-14] MEDS: Paroxetine 20 MG Tablet PO (20:43)
[2022-04-14] MEDS: Atorvastatin Calcium 80 MG Tablet PO (20:44)
[2022-04-14] MEDS: Sodium Bicarbonate 650 MG Tablet PO (20:44)
[2022-04-14] MEDS: QUEtiapine 25 MG Tablet 50 MG PO (20:44)
[2022-04-14] MEDS: Carvedilol 6.25 MG Tablet PO (20:45)
[2022-04-14 22:20] LABS: Bedside Glucose 94 mg/dL (74-106)
--- NOTE | 2022-04-14 23:08 | NURSING ---
04/14/22 @ 1930- Patient transferred from ICU with bag of medications. KELSIE Bermudez sorted medications and locked all narcs up in medication room. All other medications were locked in both medications drawers in patients room.
[2022-04-15 03:23] VITALS: BP 136/74; PULSE 78; RESP 18; TEMP 36.6; O2SAT 99
[2022-04-15] MEDS: Lactated Ringers 1,000 ML 100 ML IV ×2 (03:26→15:31)
[2022-04-15] MEDS: Menthol/Lanolin/Calamine/Znox 113 GM Tube 1 APPLIC TOPICAL ×3 (03:26→22:06)
[2022-04-15] MEDS: Acetaminophen 500 MG Tablet 1000 MG PO (05:47)
[2022-04-15 06:35] LABS: Bedside Glucose 115 mg/dL (74-106)
[2022-04-15 06:35] LABS: Bedside Glucose 78 mg/dL (74-106)
[2022-04-15 06:55] LABS: Anion Gap 9 (5-15); BUN 79 mg/dL (7-18); BUN/Creat Ratio 21.4 RATIO (10-20); Calcium,Total 8.3 mg/dL (8.5-10.1); Chloride 114 mmol/L (98-107); Creatinine, Serum 3.69 mg/dL (0.55-1.02); EST Glomerular Filtration Rate 14 mL/min (>60); Est Glom Filt Rate - Afr Amer 16 mL/min (>60); Estimated Creatinine Clearance 15.94 ml/min; Glucose 118 mg/dL (74-106); Potassium 4.4 mmol/L (3.5-5.1); Sodium Level 138 mmol/L (136-145)
[2022-04-15 06:59] LABS: Vancomycin, Random Level 20.6 ug/mL (0.0-15.0)
--- NOTE | 2022-04-15 06:59 | PN.HOSP_ITS ---
Subjective Subjective still listless. Coughed when taking PO. Objective Data Objective Data Vital Signs: Vital Signs Temp Pulse Resp BP Pulse Ox O2 Del Method 36.6 C 78 18 136/74 H 99 Room Air 04/15/22 03:23 04/15/22 03:23 04/15/22 03:23 04/15/22 03:23 04/15/22 03:23 04/15/22 03:30 Oxygen Delivery Method Room Air Weight: 91.1 kg Body Mass Index (BMI) 29.0 Intake & Output: Intake and Output for Last 24 Hours 04/13/22 04/14/22 04/15/22 23:59 23:59 23:59 Intake Total 2060.28 / 2391.95 2773.34 / 2773.34 995 / 995 Output Total 3150 / 3150 2800 / 2800 350 / 350 Balance -1089.72 / -758.05 -26.66 / -26.66 645 / 645 Medical Nutrition Assessment Dietitian: Malnutrition Criteria Met Start: 04/12/22 15:13 Freq: Status: Active Protocol: Document 04/13/22 09:37 AG (Rec: 04/13/22 09:37 AG [id number]) Nutrition Malnutrition Evidence of Malnutrition Exists No Intake Problem Increased Nutrient Needs (specify) Etiology increased protein needs related to wounds Signs/Symptoms as evidenced by multiple wounds, DM foot infection to L bottom foot Status Active Problem Inadequate Oral Intake Etiology related to altered mental status Signs/Symptoms as evidenced by NPO status x 2 days Status Active Problem Recommendation Dietitian Recommendations/Changes recommend cardiac, 1600 calorie controlled, consistent CHO diet; continue Glucerna 120mL TID; will add Ted BID for wound healing when PO diet is advanced. Lab / Micro Data Result Diagrams: 04/14/22 06:05 04/15/22 06:10 Labs: Laboratory Results - last 24 hr 04/14/22 06:05: Hypochromasia 1+ 04/14/22 11:12: POC Glucose 88 04/14/22 13:45: POC Glucose 135 H 04/14/22 16:33: POC Glucose 136 H 04/14/22 20:39: POC Glucose 94 04/15/22 03:29: POC Glucose 78 04/15/22 06:02: POC Glucose 115 H 04/15/22 06:10: Random Vancomycin 20.6 H 04/15/22 06:10: Sodium 138, Potassium 4.4, Chloride 114 H, Carbon Dioxide 15.0 L , Anion Gap 9, BUN 79 H, Creatinine 3.69 H, Estim Creat Clear Calc 15.94, Est GFR (MDRD) Af Amer 16 L, Est GFR (MDRD) Non-Af 14 L, BUN/Creatinine Ratio 21.4 H , Glucose 118 H, Calcium 8.3 L Micro: Microbiology 04/13/22 07:30 Blood Culture (Wb) - Anticubital Left Blood Culture - Preliminary 04/13/22 07:20 Blood Culture (Wb) - Pic Blood Culture - Preliminary 04/11/22 12:30 Wound Abcess - Right Foot Gram Stain - Final 04/11/22 12:30 Wound Abcess - Right Foot Wound Culture - Final Meth. resistant Staph. aureus 04/11/22 12:30 Wound Abcess - Right Foot Anaerobic Culture - Final No anaerobic bacteria isolated. 04/09/22 20:51 Wound - Left Foot Gram Stain - Final 04/09/22 20:51 Wound - Left Foot Wound Culture - Final Meth. resistant Staph. aureus Streptococcus mitis/ oralis Corynebacterium striatum 04/09/22 20:51 Wound - Left Foot Anaerobic Culture - Preliminary Checking for anaerobes, further studies to follow. 04/09/22 18:40 Urine, Catheterized Urine Culture - Final Culture exhibits no growth. 04/09/22 17:12 Blood Culture (Wb) - Anticubital Right Blood Culture - Final Staphylococcus aureus 04/09/22 16:50 Blood Culture (Wb) - Anticubital Right Bacteria Detection (PCR) - Final Staphylococcus aureus mecA Resistance Marker 04/09/22 16:50 Blood Culture (Wb) - Anticubital Right Blood Culture - Final Meth. resistant Staph. aureus Rhythm Strip Rhythm Strip: Sinus Rhythm Rate: 60 Ectopy: None Physical Exam Const no apparent distress Constitutional Narrative: listless. afebrile. Resp normal respiratory effort, no retractions and no use of accessory muscles Cardio regular rate, regular rhythm, S1 normal heart sound and S2 normal heart sound GI normal to inspection, nondistended, normoactive bowel sounds and soft to palpation Assessment & Plan Assessment/Plan (1) Cellulitis of both lower extremities: PLAN: Plan 1. Septic shock resolved due to MRSA osteomyelitis with bacteremia with acute sepsis related organ dysfunction evidenced by acute on chronic kidney disease, altered mental status. Lactic acid normal. On IV vancomycin and cefepime patient Blood cultures positive of MRSA. Wound culture: S. aureus, Alpha hemolytic strep and GPO s/p debridement on the Plan: * continue IV vanc and cefepime * follow up cultures 2. fight foot osteomyelitis of cuboid and base of 4th and 5th toes s/p debridement on the podiatry following if amputation required, likely would be BKA 3. Bacteremia likely 2/2 above + on the for 1 cultures repeat BCx 04/13: pending 4. Acute kidney injury, Likely due to ATN Creatinine worse today, baseline around 2.7 04/11: Oliguria with positive fluid balance. Business Performance Advisor is consulted. 04/12: oliguric. nephrology following. Discussed with Dr. Romero. Plan is for IV furosemide today. Patient may very well likely require renal placement therapy. Recommend patient stay in the ICU because she does need line placement on the . 04/13: urine outpt improved with furosemide, but creatinine worse again. nephrology--no need for ENGRAVER RUBBER at this time. 04/14: non-oliguric. creatinine improved to 4 04/15: Cr 3.69. Continue IVF. 5. encephalopathy, toxic-metabolic likely multifactorial: uremia, iatrogenic, and possible underlying psychiatric disorder ongoing DC hydromorphone. 6. Acute hyponatremia, hypovolemic: Resolved Admission sodium 127, baseline normal 136-144 range 7. Diabetes mellitus type II complicated with Charcot foot, polyneuropathy: Fair controlAccu-Chek insulin is covered with Humalog sliding scale. Patient on gabapentin. A1c 9.2. Started on scheduled Humalog insulin 10 units subcutaneous 3 times daily AC and Lantus dose increased. 04/11: Glucose is running low. Holding scheduled insulin . Patient not having adequate oral intake 8. CAD, ischemic cardiomyopathy: We will continue patient Plavix, statin, Coreg, not on MYLA inhibitor/ARB likely secondary to underlying renal disease. Will judiciously hydrate. 01/06/22 ECOH w/ EF 55%, normal diastolic function, trivial MVI, no significant valvular vegetations demonstrated. 04/11: EF 55%, mild concentric LVH, mild 2+ TR. RVSP 48 mmHg consistent with chronic HFpEF 9. Chronic anemia, AOCD: Admission hemoglobin 9.6, MCV normocytic range, baseline hemoglobin 8-9, stable, trend. 04/11: Hemoglobin dropped to 7.3. Hold Plavix. 10. Chronic conditions: * Hyperlipidemia: We will continue patient home statin therapy. * Restless leg syndrome: l continue patient home pramipexole regimen. * Anxiety and depression: continue patient home bupropion and hydroxyzine regimen as well as paroxetine given clinical improvement and currently mentating appropriately. * Chronic back pain: Patient with MRI of her spine in January 2022 with spinal stenosis with spinal surgery consultation with recommended continued conservative management secondary to significant high risk. * Hypertension: Coreg, isosorbide held * Obesity: Weight loss and lifestyle changes encouraged. 11. DVT prophylaxis: SCDs, heparin. 12. CODE STATUS: Full code Charges/Coding Visit Charges Inpatient E&M: 97025 Subs Hosp L2
--- NOTE | 2022-04-15 07:27 | PN_ITS ---
Subjective Subjective Patient was seen this morning for follow up on bilateral feet. She relates she is feeling better. She is resting in bed. WBC normal yesterday, and patient is afebrile. Feet are improving. Objective Data Objective Data Vital Signs: Vital Signs Temp Pulse Resp BP Pulse Ox O2 Del Method 97.8 F 78 18 136/74 H 99 Room Air 04/15/22 03:23 04/15/22 03:23 04/15/22 03:23 04/15/22 03:23 04/15/22 03:23 04/15/22 03:30 Oxygen Delivery Method Room Air Weight: 91.1 kg Body Mass Index (BMI) 29.0 Intake & Output: Intake and Output for Last 24 Hours 04/13/22 04/14/22 04/15/22 23:59 23:59 23:59 Intake Total 2060.28 / 2391.95 2773.34 / 2773.34 995 / 995 Output Total 3150 / 3150 2800 / 2800 350 / 350 Balance -1089.72 / -758.05 -26.66 / -26.66 645 / 645 Medical Nutrition Assessment Dietitian: Malnutrition Criteria Met Start: 04/12/22 15:13 Freq: Status: Active Protocol: Document 04/13/22 09:37 AG (Rec: 04/13/22 09:37 AG [id number]) Nutrition Malnutrition Evidence of Malnutrition Exists No Intake Problem Increased Nutrient Needs (specify) Etiology increased protein needs related to wounds Signs/Symptoms as evidenced by multiple wounds, DM foot infection to L bottom foot Status Active Problem Inadequate Oral Intake Etiology related to altered mental status Signs/Symptoms as evidenced by NPO status x 2 days Status Active Problem Recommendation Dietitian Recommendations/Changes recommend cardiac, 1600 calorie controlled, consistent CHO diet; continue Glucerna 120mL TID; will add Ted BID for wound healing when PO diet is advanced. Lab / Micro Data Result Diagrams: 04/14/22 06:05 04/15/22 06:10 Labs: Laboratory Results - last 24 hr 04/14/22 06:05: Hypochromasia 1+ 04/14/22 11:12: POC Glucose 88 04/14/22 13:45: POC Glucose 135 H 04/14/22 16:33: POC Glucose 136 H 04/14/22 20:39: POC Glucose 94 04/15/22 03:29: POC Glucose 78 04/15/22 06:02: POC Glucose 115 H 04/15/22 06:10: Random Vancomycin 20.6 H 04/15/22 06:10: Sodium 138, Potassium 4.4, Chloride 114 H, Carbon Dioxide 15.0 L , Anion Gap 9, BUN 79 H, Creatinine 3.69 H, Estim Creat Clear Calc 15.94, Est GFR (MDRD) Af Amer 16 L, Est GFR (MDRD) Non-Af 14 L, BUN/Creatinine Ratio 21.4 H , Glucose 118 H, Calcium 8.3 L Micro: Microbiology 04/13/22 07:30 Blood Culture (Wb) - Anticubital Left Blood Culture - Prelim inary 04/13/22 07:20 Blood Culture (Wb) - Pic Blood Culture - Preliminary 04/11/22 12:30 Wound Abcess - Right Foot Gram Stain - Final 04/11/22 12:30 Wound Abcess - Right Foot Wound Culture - Final Meth. resistant Staph. aureus 04/11/22 12:30 Wound Abcess - Right Foot Anaerobic Culture - Final No anaerobic bacteria isolated. 04/09/22 20:51 Wound - Left Foot Gram Stain - Final 04/09/22 20:51 Wound - Left Foot Wound Culture - Final Meth. resistant Staph. aureus Streptococcus mitis/ oralis Corynebacterium striatum 04/09/22 20:51 Wound - Left Foot Anaerobic Culture - Preliminary Checking for anaerobes, further studies to follow. 04/09/22 18:40 Urine, Catheterized Urine Culture - Final Culture exhibits no growth. 04/09/22 17:12 Blood Culture (Wb) - Anticubital Right Blood Culture - Final Staphylococcus aureus 04/09/22 16:50 Blood Culture (Wb) - Anticubital Right Bacteria Detection (PCR) - Final Staphylococcus aureus mecA Resistance Marker 04/09/22 16:50 Blood Culture (Wb) - Anticubital Right Blood Culture - Final Meth. resistant Staph. aureus Rhythm Strip Rhythm Strip: Sinus Rhythm Rate: 60 Ectopy: None Physical Exam Const alert and no apparent distress Extremity normal capillary refill Extremity Narrative: Left foot: Ulceration plantar lateral midfoot foot down to fascia tissue and bone - tissues are healthy and viable with no evidence of infection - no drainage, no maloder, no erythema, no necrosis, no visible abscess; no other open lesions, no evidence of ischemia to the foot or ankle, CFT < 2 seconds to all toes, no edema. Right foot: Ulceration to the lateral midfoot probes to bone, there is no ce llulitis, no erythema, no edema, no maloder, no necrosis - there is noted to be some brownish/white thick drainage from wound. No other open lesions, no erythema, no necrosis, no visible abscess; no other open lesions, no evidence of ischemia to the foot or ankle, CFT < 2 seconds to all toes, no edema. Assessment & Plan Assessment/Plan (1) Diabetic foot ulcers: (2) Diabetes mellitus with diabetic polyneuropathy: (3) Charcot's joint, right ankle and foot: (4) Osteomyelitis of metatarsal: PLAN: Plan Re-evaluation performed. Reviewed diagnostic data. Patient with 4th/5th metatarsal and cuboid osteomyelitis and Charcot foot- clinically the right foot continues to improving with antibiotics and local wound care at this time- which we will continue with this approach at this time. Left foot wounds is healthy and viable - will continue with local wound care as well. Wound care right foot: Iodoform gauze packing with overlying gauze, kerlix, abd pad, and brando dressing - change daily. Wound care left foot: Silver alginate and gauze, kerlix, abd pad, and brando dressing - change daily. No weightbearing bilateral foot. Patient on IV Vancomycin & Cefepime. Podiatry will continue to follow.
[2022-04-15 09:30] VITALS: BP 152/85; PULSE 95; RESP 14; TEMP 36.5; O2SAT 98
[2022-04-15] MEDS: buPROPion (XL) 150 MG TABLET.XL PO (10:54)
[2022-04-15] MEDS: Sodium Bicarbonate 650 MG Tablet PO (10:54)
[2022-04-15] MEDS: Pramipexole Di-HCl 1 MG Tablet 1.5 MG PO (10:54)
[2022-04-15] MEDS: Carvedilol 6.25 MG Tablet PO (10:55)
[2022-04-15] MEDS: Cefepime HCl 2 GM in 0.9% NS 100 ML Minibag Q8 IV (11:15)
[2022-04-15 11:25] LABS: Bedside Glucose 134 mg/dL (74-106)
--- NOTE | 2022-04-15 12:05 | CASEMGMT ---
Socail Work SW did go in today to speak w/pt about discharge plan. Pt able to tell SW she is in [facility]. However, pt continued to close eyes while SW speaking w/her; she would open eyes again when SW called her name. SW did ask pt about discharge plan, pt states she is thinking about it. Pt was not able to tell SW however if she thought she would be able to return home or would need to return to SNF. Pt was able to tell SW she lives by herself. Her daughter does help w/medical decisions and she is agreeable to have SW call her daughter. SW did give pt list of intermediate facilities that take pt's insurance, in her preferred geographic area, complete with quality and resource use data. SW will follow up w/daughter regarding discharge plan. FRANCISCO Elaine
--- NOTE | 2022-04-15 12:33 | NURSING ---
ATTEMPTED TO RETURN CALL TO [facility]
--- NOTE | 2022-04-15 12:41 | PCM.PN.REN ---
Subjective Subjective Resting quietly, no overnight events. Alert to name; drowsy. Confused to recent events. Objective Data Objective Data Vital Signs: Vital Signs Temp Pulse Resp BP Pulse Ox O2 Del Method 97.8 F 78 18 136/74 H 99 Room Air 04/15/22 03:23 04/15/22 03:23 04/15/22 03:23 04/15/22 03:23 04/15/22 03:23 04/15/22 03:30 Oxygen Delivery Method Room Air Weight: 91.1 kg Body Mass Index (BMI) 29.0 Intake & Output: Intake and Output for Last 24 Hours 04/13/22 04/14/22 04/15/22 23:59 23:59 23:59 Intake Total 2060.28 / 2391.95 2773.34 / 2773.34 1105 / 1105 Output Total 3150 / 3150 2800 / 2800 350 / 350 Balance -1089.72 / -758.05 -26.66 / -26.66 755 / 755 Medical Nutrition Assessment Dietitian: Malnutrition Criteria Met Start: 04/12/22 15:13 Freq: Status: Active Protocol: Document 04/13/22 09:37 AG (Rec: 04/13/22 09:37 AG [id number]) Nutrition Malnutrition Evidence of Malnutrition Exists No Intake Problem Increased Nutrient Needs (specify) Etiology increased protein needs related to wounds Signs/Symptoms as evidenced by multiple wounds, DM foot infection to L bottom foot Status Active Problem Inadequate Oral Intake Etiology related to altered mental status Signs/Symptoms as evidenced by NPO status x 2 days Status Active Problem Recommendation Dietitian Recommendations/Changes recommend cardiac, 1600 calorie controlled, consistent CHO diet; continue Glucerna 120mL TID; will add Ted BID for wound healing when PO diet is advanced. Lab / Micro Data Result Diagrams: 04/14/22 06:05 04/15/22 06:10 Labs: Laboratory Results - last 24 hr 04/14/22 13:45: POC Glucose 135 H 04/14/22 16:33: POC Glucose 136 H 04/14/22 20:39: POC Glucose 94 04/15/22 03:29: POC Glucose 78 04/15/22 06:02: POC Glucose 115 H 04/15/22 06:10: Random Vancomycin 20.6 H 04/15/22 06:10: Sodium 138, Potassium 4.4, Chloride 114 H, Carbon Dioxide 15.0 L, Anion Gap 9, BUN 79 H, Creatinine 3.69 H, Estim Creat Clear Calc 15.94, Est GFR (MDRD) Af Amer 16 L, Est GFR (MDRD) Non-Af 14 L, BUN/Creatinine Ratio 21.4 H, Glucose 118 H, Calcium 8.3 L 04/15/22 11:01: POC Glucose 134 H Micro: Microbiology 04/09/22 20:51 Wound - Left Foot Gram Stain - Final 04/09/22 20:51 Wound - Left Foot Wound Culture - Final Meth. resistant Staph. aureus Streptococcus mitis/ oralis Corynebacterium striatum 04/09/22 20:51 Wound - Left Foot Anaerobic Culture - Final Prevotella bivia Bacteroides pyogenes 04/13/22 07:20 Blood Culture (Wb) - Pic Blood Culture - Preliminary Staphylococcus aureus 04/13/22 07:30 Blood Culture (Wb) - Anticubital Left Blood Culture - Preliminary 04/11/22 12:30 Wound Abcess - Right Foot Gram Stain - Final 04/11/22 12:30 Wound Abcess - Right Foot Wound Culture - Final Meth. resistant Staph. aureus 04/11/22 12:30 Wound Abcess - Right Foot Anaerobic Culture - Final No anaerobic bacteria isolated. 04/09/22 18:40 Urine, Catheterized Urine Culture - Final Culture exhibits no growth. 04/09/22 17:12 Blood Culture (Wb) - Anticubital Right Blood Culture - Final Staphylococcus aureus 04/09/22 16:50 Blood Culture (Wb) - Anticubital Right Bacteria Detection (PCR) - Final Staphylococcus aureus mecA Resistance Marker 04/09/22 16:50 Blood Culture (Wb) - Anticubital Right Blood Culture - Final Meth. resistant Staph. aureus Rhythm Strip Rhythm Strip: Sinus Rhythm Rate: 60 Ectopy: None Physical Exam Narrative General: Alert and oriented to person and place. Some confusion to recent events. Neck: Supple, no JVD. Heart: Normal S1, S2. No rubs, murmurs or gallops. Lungs: Clear to auscultation anteriorly. No wheezes, rhonchi, rales noted. On room air Abdominal: Normal bowel sounds, soft, nontender. Extremities: Both feet are wrapped in MYLA bandages. No edema : Indwelling Tirado catheter with clear urine in bag Assessment & Plan Assessment/Plan (1) FELI (acute kidney injury): PLAN: -FELI secondary to ischemic ATN related to septic shock. Patient was oliguric but is now non-oliguric -Serum creatinine 3.3 mg/dL on admission, peaked 4.08 mg/dL on 04/13 and today creatinine is 3.69mg/dL. Urine output is picking up, patient had ~3 L last few days. Her appetite is still poor and recommend keeping on IVF for another day or until at least appetite picks up. On protein supplement -At this time there is no significant uremic symptoms, hyperkalemia, volume overload, or severe acidosis therefore there is no immediate need for kidney replacement therapy -Current medications are reviewed. They are all appropriately dosed for her renal function. - recommend to continue on IVF for another day as patient is not eating. -Continue to monitor renal function (2) Chronic kidney disease, stage 4 (severe): PLAN: Baseline serum creatinine is around 2.00 to 2.40 mg/dL. The patient has underlying diabetic kidney disease. (3) Metabolic acidosis: PLAN: Serum bicarbonate level is low but stable at 16 mmol/L today. Increase oral bicarb Suspect her acidosis is due to FELI/CKD along with poor tissue perfusion. There was no ketones on urine dipstick on 04/09/2022. Patient also received IV normal saline for volume expansion which can also contribute to non-anion gap metabolic acidosis At this time, acidosis is not severe enough to require urgent dialysis. I will continue to monitor serum bicarbonate. Currently on LR. (4) Septic shock: PLAN: Septic shock is likely secondary to cellulitis, diabetic foot infection +MRSA and possibly osteomyelitis. Antimicrobial coverage as per hospitalist and elementary instructional coach. There has been some improvement as she has been off of IV vasopressor. WBC is trending down, normal today.
--- NOTE | 2022-04-15 14:21 | CASEMGMT ---
Social Work SW called daughter in regard to discharge plan. SW explained to daughter that SW spoke w/pt about going somewhere for rehab, however pt still seems not quite able have a full conversation w/SW in regard to plan at discharge. SW explained pt was okay w/SW calling daughter to speak w/her in regard to plan. Daughter is concerned about pt, she states when she goes home, she does not take her medication correctly and walks on her feet when she is not supposed to be doing so. She states pt is concerned about her social security check however. We spoke about pt going back to a long term for a longer amount of time in order to let her feet heal, with the goal of eventually going home. Daughter thinks this is a good idea. However pt usually wants to go home due to her concern about her social security. Daughter states it may be a good idea to have a conversation w/pt when she is more able about staying longer at the long term. SW explained we can do that once she is able. Daughter agreeable to referral being sent to [facility]. She would prefer pt not go to [facility] or [facility], she is open to other options also. She would just prefer pt have a private room if possible. LUCRETIA explained we can start with [facility], and go from there. SW also let daughter know that there is a SNF list in the room she can review when she comes to visit. LUCRETIA will continue to follow. FRANCISCO Elaine
[2022-04-15 15:33] VITALS: BP 168/86; PULSE 93; RESP 14; TEMP 36.4; O2SAT 95
--- NOTE | 2022-04-15 15:45 | CASEMGMT ---
Discharge Scoop Driver Yaneli Discharge Scoop Driver faxed over a referral on patient to [facility]. Will follow up. Yaneli Hammond Discharge Scoop Driver
[2022-04-15 15:47] VITALS: BP 168/86; PULSE 93
[2022-04-15] MEDS: 0.9% Saline Lock 10 ML Syringe IV ×2 (15:47→22:19)
[2022-04-15] MEDS: hydrALAZINE 20 MG/ML Vial 10 MG IV ×2 (15:47→22:14)
[2022-04-15 22:02] VITALS: BP 165/82; PULSE 100; RESP 20; TEMP 36.7; O2SAT 99
[2022-04-15] MEDS: Insulin Lispro 100 UNIT/ML INSULN.PEN SC (22:07)
[2022-04-15 22:14] VITALS: BP 165/82; PULSE 100
[2022-04-15 22:55] LABS: Bedside Glucose 159 mg/dL (74-106)
--- NOTE | 2022-04-15 23:32 | PCM.PN.BLA ---
Progress Note With n.p.o. status scheduled Tylenol p.o. has been changed to rectal.
[2022-04-16 00:45] LABS: Bedside Glucose 128 mg/dL (74-106)
[2022-04-16] MEDS: Lactated Ringers 1,000 ML 100 ML IV ×2 (00:52→13:48)
[2022-04-16 03:16] VITALS: BP 176/105; PULSE 103; RESP 18; TEMP 36.3; O2SAT 98
[2022-04-16 03:23] VITALS: BP 176/105; PULSE 103
[2022-04-16] MEDS: hydrALAZINE 20 MG/ML Vial 10 MG IV (03:23)
[2022-04-16] MEDS: Acetaminophen 650 MG Suppository RC ×5 (05:26→23:24)
[2022-04-16] MEDS: Menthol/Lanolin/Calamine/Znox 113 GM Tube 1 APPLIC TOPICAL ×3 (05:29→20:33)
[2022-04-16 05:32] VITALS: BP 161/79; PULSE 107; RESP 20; O2SAT 98
[2022-04-16 05:41] LABS: Absolute Lymphocyte Count 0.82 X10^3/uL (0.83-4.51); Absolute Neutrophil Count 14.6 X10^3/uL (2.0-7.7); Basophil# 0.04 X10^3/uL; Basophil% 0.2 % (0-1); Eosinophil# 0.04 X10^3/uL; Eosinophils% 0.2 % (0-5); Hematocrit 24.9 % (37-47); Hemoglobin 8.3 g/dL (12.0-15.0); Lymphocyte # 0.82 X10^3/ul (0.83-4.51); Lymphocyte % 4.9 % (19-41); Mean Corp Hgb Conc 33.3 g/dL (32-36); Mean Corpuscular Hgb 27.7 pg (27.0-32.0); Mean Platelet Vol. 10.6 fl (6.2-12.0); Monocyte# 0.42 X10^3/uL; Monocyte% 2.5 % (0-10); NRBC Flagged by Analyzer 0.1 % (0-5); Neutrophil # 14.64 X10^3/uL (2.7-7.7); Neutrophil % 88.5 % (47-70); Platelet Count 314 K/mm3 (150-450); RBC Distribution Width CV 17.9 % (11.6-14.6); RBC Distribution Width SD 53.5 fl (35.1-43.9); White Blood Count 16.6 K/mm3 (4.4-11.0)
[2022-04-16 06:31] LABS: Vancomycin, Random Level 17.3 ug/mL (0.0-15.0)
[2022-04-16 06:34] LABS: Albumin, Serum 1.3 g/dL (3.2-5.0); Anion Gap 16 (5-15); BUN 73 mg/dL (7-18); Calcium,Total 8.5 mg/dL (8.5-10.1); Chloride 113 mmol/L (98-107); Creatinine, Serum 3.48 mg/dL (0.55-1.02); EST Glomerular Filtration Rate 14 mL/min (>60); Est Glom Filt Rate - Afr Amer 17 mL/min (>60); Glucose 184 mg/dL (74-106); Phosphorus 4.8 mg/dL (2.5-4.9); Potassium 4.5 mmol/L (3.5-5.1); Sodium Level 141 mmol/L (136-145)
--- NOTE | 2022-04-16 07:35 | PN.HOSP_ITS ---
Subjective Subjective Still confused. Objective Data Objective Data Vital Signs: Vital Signs Temp Pulse Resp BP Pulse Ox O2 Del Method 36.3 C L 107 H 20 H 161/79 H 98 Room Air 04/16/22 03:16 04/16/22 05:32 04/16/22 05:32 04/16/22 05:32 04/16/22 05:32 04/16/22 05:32 Oxygen Delivery Method Room Air Weight: 90.6 kg Body Mass Index (BMI) 29.0 Intake & Output: Intake and Output for Last 24 Hours 04/14/22 04/15/22 04/16/22 23:59 23:59 23:59 Intake Total 2773.34 / 2773.34 2205.00 / 2205.00 985 / 985 Output Total 2800 / 2800 650 / 975 1225 / 1225 Balance -26.66 / -26.66 1555.00 / 1230.00 -240 / -240 Medical Nutrition Assessment Dietitian: Malnutrition Criteria Met Start: 04/12/22 15:13 Freq: Status: Active Protocol: Document 04/13/22 09:37 AG (Rec: 04/13/22 09:37 AG [id number]) Nutrition Malnutrition Evidence of Malnutrition Exists No Intake Problem Increased Nutrient Needs (specify) Etiology increased protein needs related to wounds Signs/Symptoms as evidenced by multiple wounds, DM foot infection to L bottom foot Status Active Problem Inadequate Oral Intake Etiology related to altered mental status Signs/Symptoms as evidenced by NPO status x 2 days Status Active Problem Recommendation Dietitian Recommendations/Changes recommend cardiac, 1600 calorie controlled, consistent CHO diet; continue Glucerna 120mL TID; will add Ted BID for wound healing when PO diet is advanced. Lab / Micro Data Result Diagrams: 04/16/22 05:34 04/16/22 05:34 Labs: Laboratory Results - last 24 hr 04/15/22 11:01: POC Glucose 134 H 04/15/22 15:54: POC Glucose 128 H 04/15/22 22:05: POC Glucose 159 H 04/16/22 05:34: Random Vancomycin 17.3 H 04/16/22 05:34: Sodium 141, Potassium 4.5, Chloride 113 H, Carbon Dioxide 12.0 L , Anion Gap 16 H, BUN 73 H, Creatinine 3.48 H, Estim Creat Clear Calc 16.90, Est GFR (MDRD) Af Amer 17 L, Est GFR (MDRD) Non-Af 14 L, BUN/Creatinine Ratio 21.0 H , Glucose 184 H, Calcium 8.5, Phosphorus 4.8, Albumin 1.3 L 04/16/22 05:34: WBC 16.6 H, RBC 3.00 L, Hgb 8.3 L, Hct 24.9 L, MCV 83.0, MCH 27 .7, MCHC 33.3, RDW Std Deviation 53.5 H, RDW Coeff of Fior 17.9 H, Plt Count 314, MPV 10.6, Immature Gran % (Auto) 3.700 H, Neut % (Auto) 88.5 H, Lymph % (Auto) 4.9 L, Gregg % (Auto) 2.5, Eos % (Auto) 0.2, Baso % (Auto) 0.2, Absolute Neuts (auto) 14.6 H, Absolute Lymphs (auto) 0.82 L, Nucleated RBC % 0.1 Micro: Microbiology 04/13/22 07:20 Blood Culture (Wb) - Pic Blood Culture - Final Meth. resistant Staph. aureus 04/09/22 20:51 Wound - Left Foot Gram Stain - Final 04/09/22 20:51 Wound - Left Foot Wound Culture - Final Meth. resistant Staph. aureus Streptococcus mitis/ oralis Corynebacterium striatum 04/09/22 20:51 Wound - Left Foot Anaerobic Culture - Final Prevotella bivia Bacteroides pyogenes 04/13/22 07:30 Blood Culture (Wb) - Anticubital Left Blood Culture - Preliminary 04/11/22 12:30 Wound Abcess - Right Foot Gram Stain - Final 04/11/22 12:30 Wound Abcess - Right Foot Wound Culture - Final Meth. resistant Staph. aureus 04/11/22 12:30 Wound Abcess - Right Foot Anaerobic Culture - Final No anaerobic bacteria isolated. 04/09/22 18:40 Urine, Catheterized Urine Culture - Final Culture exhibits no growth. 04/09/22 17:12 Blood Culture (Wb) - Anticubital Right Blood Culture - Final Staphylococcus aureus 04/09/22 16:50 Blood Culture (Wb) - Anticubital Right Bacteria Detection (PCR) - Final Staphylococcus aureus mecA Resistance Marker 04/09/22 16:50 Blood Culture (Wb) - Anticubital Right Blood Culture - Final Meth. resistant Staph. aureus Rhythm Strip Rhythm Strip: Sinus Rhythm Rate: 60 Ectopy: None Physical Exam Const no apparent distress Resp normal respiratory effort, no retractions and no use of accessory muscles Cardio regular rate, regular rhythm, S1 normal heart sound and S2 normal heart sound GI normal to inspection, nondistended, normoactive bowel sounds, soft to palpation and non-tender Assessment & Plan Assessment/Plan (1) Cellulitis of both lower extremities: PLAN: Plan 1. Septic shock resolved due to MRSA osteomyelitis with bacteremia with acute sepsis related organ dysfunction evidenced by acute on chronic kidney disease, altered mental status. Lactic acid normal. On IV vancomycin and cefepime patient Blood cultures positive of MRSA. Wound culture: S. aureus, Alpha hemolytic strep and corynebacterium s/p debridement on the Plan: * continue IV vanc and cefepime * follow up cultures 2. right foot osteomyelitis of cuboid and base of 4th and 5th toes s/p debridement on the podiatry following if amputation required, likely would be BKA Consult ID for abx recommendations 3. Bacteremia likely 2/2 above TTE negative for vegetation. If blood cultures continue to be positive, may need to consider HONG repeat BCx 04/13: + MRSA repeat BCx 04/16 4. Acute kidney injury, Likely due to ATN Creatinine worse today, baseline around 2.7 04/11: Oliguria with positive fluid balance. Tree Wrapper is consulted. 04/12: oliguric. nephrology following. Discussed with Dr. Romero. Plan is for IV furosemide today. Patient may very well likely require renal placement therapy. Recommend patient stay in the ICU because she does need line placement on the . 04/13: urine outpt improved with furosemide, but creatinine worse again. DW nephrology--no need for GUEST EXPERIENCE SPECIALIST at this time. 04/14: non-oliguric. creatinine improved to 4 04/15: Cr 3.69. Continue IVF. 5. encephalopathy, toxic-metabolic likely multifactorial: uremia, iatrogenic, and possible underlying psychiatric disorder ongoing DC hydromorphone. Since ongoing and affecting her ability to eat and drink safely, will also discontinue other agents: quetiapine, bupropion, pramipexole. Will continue paroxetine for now so as not to provoke SSRI withdrawal. 6. Acute hyponatremia, hypovolemic: Resolved Admission sodium 127, baseline normal 136-144 range 7. Diabetes mellitus type II complicated with Charcot foot, polyneuropathy: Fair controlAccu-Chek insulin is covered with Humalog sliding scale. Patient on gabapentin. A1c 9.2. Started on scheduled Humalog insulin 10 units subcutaneous 3 times daily AC and Lantus dose increased. 04/11: Glucose is running low. Holding scheduled insulin . Patient not having adequate oral intake 8. CAD, ischemic cardiomyopathy: We will continue patient Plavix, statin, Coreg, not on MYLA inhibitor/ARB likely secondary to underlying renal disease. Will judiciously hydrate. 01/06/22 ECOH w/ EF 55%, normal diastolic function, trivial MVI, no significant valvular vegetations demonstrated. 04/11: EF 55%, mild concentric LVH, mild 2+ TR. RVSP 48 mmHg consistent with chronic HFpEF 9. Chronic anemia, AOCD: Admission hemoglobin 9.6, MCV normocytic range, baseline hemoglobin 8-9, stable, trend. 04/11: Hemoglobin dropped to 7.3. Hold Plavix. stable 10. Dysphagia limited by mental status ST following MBS ordered. Informed that could not be done by ST until 04/19 11. Chronic conditions: * Hyperlipidemia: We will continue patient home statin therapy. * Restless leg syndrome: l continue patient home pramipexole regimen. * Anxiety and depression: continue patient home bupropion and hydroxyzine regimen as well as paroxetine given clinical improvement and currently mentating appropriately. * Chronic back pain: Patient with MRI of her spine in January 2022 with spinal stenosis with spinal surgery consultation with recommended continued conservative management secondary to significant high risk. * Hypertension: Coreg, isosorbide held * Obesity: Weight loss and lifestyle changes encouraged. 12. DVT prophylaxis: SCDs, heparin. 13. CODE STATUS: Full code Charges/Coding Visit Charges Inpatient E&M: 50956 Subs Hosp L2
[2022-04-16] MEDS: Insulin Lispro 100 UNIT/ML INSULN.PEN SC ×4 (08:13→21:00)
[2022-04-16 08:15] LABS: Bedside Glucose 181 mg/dL (74-106)
--- NOTE | 2022-04-16 08:27 | PCM.RX.CS ---
Consult Pharmacy has been consulted to manage selected antiobiotic: Vancomycin Type of Consult: Follow-up Suspected Infection: Osteomyelitis Prior Doses of Antibiotics Received/Current Regimen: 04/09/22 @ 2233 2000MG Loading dose 04/10/22 @ 2307 750mg once 04/16/22 1250 once Labs: Sodium 141 mmol/L (136-145) 04/16/22 05:34 Potassium 4.5 mmol/L (3.5-5.1) 04/16/22 05:34 Chloride 113 mmol/L (98-107) H 04/16/22 05:34 Carbon Dioxide 12.0 mmol/L (21.0-32.0) L 04/16/22 05:34 Anion Gap 16 (5-15) H 04/16/22 05:34 BUN 73 mg/dL (7-18) H 04/16/22 05:34 Creatinine 3.48 mg/dL (0.55-1.02) H 04/16/22 05:34 Est GFR (MDRD) Af Amer 17 mL/min (>60) L 04/16/22 05:34 Est GFR (MDRD) Non-Af 14 mL/min (>60) L 04/16/22 05:34 BUN/Creatinine Ratio 21.0 RATIO (10-20) H 04/16/22 05:34 Glucose 184 mg/dL (74-106) H 04/16/22 05:34 Vancomycin Trough 29.2 ug/mL (5.0-15.0) H 04/11/22 21:30 Random Vancomycin 17.3 ug/mL (0.0-15.0) H 04/16/22 05:34 Microbiology: Microbiology 04/13/22 07:30 Blood Culture (Wb) - Anticubital Left Blood Culture - Preliminary Staphylococcus aureus 04/13/22 07:20 Blood Culture (Wb) - Pic Blood Culture - Final Meth. resistant Staph. aureus 04/09/22 20:51 Wound - Left Foot Gram Stain - Final 04/09/22 20:51 Wound - Left Foot Wound Culture - Final Meth. resistant Staph. aureus Streptococcus mitis/ oralis Corynebacterium striatum 04/09/22 20:51 Wound - Left Foot Anaerobic Culture - Final Prevotella bivia Bacteroides pyogenes 04/11/22 12:30 Wound Abcess - Right Foot Gram Stain - Final 04/11/22 12:30 Wound Abcess - Right Foot Wound Culture - Final Meth. resistant Staph. aureus 04/11/22 12:30 Wound Abcess - Right Foot Anaerobic Culture - Final No anaerobic bacteria isolated. 04/09/22 18:40 Urine, Catheterized Urine Culture - Final Culture exhibits no growth. 04/09/22 17:12 Blood Culture (Wb) - Anticubital Right Blood Culture - Final Staphylococcus aureus 04/09/22 16:50 Blood Culture (Wb) - Anticubital Right Bacteria Detection (PCR) - Final Staphylococcus aureus mecA Resistance Marker 04/09/22 16:50 Blood Culture (Wb) - Anticubital Right Blood Culture - Final Meth. resistant Staph. aureus Weight used for dosin kg Estimated Creatinine Clearance: 17 Pharmacy Plan for Drug Dosing: Pharmacy Service will continue to monitor and adjust dosing as required. Follow-Up Labs: Trough Other - random vancomycin level Labs to be done on [date and time ordered]: 04/18/22 @ 0600 random level
[2022-04-16] MEDS: Carvedilol 6.25 MG Tablet PO ×2 (09:29→20:33)
--- NOTE | 2022-04-16 09:49 | CASEMGMT ---
Discharge Shop Supervisor Hailey at [facility] is reviewing patient referral now. Yaneli Hammond Discharge Shop Supervisor
--- NOTE | 2022-04-16 09:59 | CON.PCM.ID_ITS ---
Assessment & Plan Assessment/Plan (1) Bacteremia: PLAN: We will continue parenteral vancomycin and closely follow her microbiology data. I repeated blood cultures this morning. We will discontinue cefepime. Patient closely followed by nephrology. Case discussed with hospitalist. HPI Consult Data Date of Consult: 04/16/22 HPI Narrative Reason for Consultation: Persistent MRSA bacteremia HPI Narrative: DIONY ROCHA, is a 56 F who presents 1 week ago on April 09 with altered mental status and clinical signs of severe sepsis. Patient has multiple comorbidities including diabetes mellitus, chronic renal disease, history of MSSA bacteremia earlier this year, diabetic foot ulcers patient was initially managed in the ICU and then stabilized and transferred to the medical floor. Of concern is her persistent bloodstream infection with MRSA. Patient had a PICC line placed in the right arm on April 10. Patient is currently encephalopathic and unable to communicate. Her current medication list to review she is currently on parenteral vancomycin and cefepime. No cardiopulmonary distress. [facility] Medical History Acquired varus deformity of left foot Acquired varus deformity of right foot Amputation foot, bilat Anemia due to chronic illness Anxiety and depression Atherosclerosis of [place] coronary artery of [place] heart without angina pectoris Back pain, chronic Bilateral edema of lower extremity Charcot's joint of right foot Chronic renal insufficiency Chronic ulcer of left foot with fat layer exposed Chronic ulcer of right foot with necrosis of muscle COVID-19 (08/28/21) Delayed wound healing Diabetes Diabetic foot ulcer associated with type 2 diabetes mellitus Diabetic infection of left foot Diabetic polyneuropathy Diabetic ulcer of right ankle Elevated troponin Essential (primary) hypertension GERD (gastroesophageal reflux disease) Hemoglobin A1c greater than 9.0% HLD (hyperlipidemia) Hyperparathyroidism, secondary renal Hypertension Iron deficiency anemia Ischemic cardiomyopathy Myocardial infarct Non-compliance Non-smoker Normocytic anemia NSTEMI (non-ST elevated myocardial infarction) (09/20/18) Obesity (BMI 30.0-34.9) Osteomyelitis of left foot RLS (restless legs syndrome) Stage 4 chronic kidney disease TIA (transient ischemic attack) 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 Ulcer of left foot with fat layer exposed Ulcer of left foot with muscle involvement without evidence of necrosis Ulcer of right lower extremity with fat layer exposed Home Medications atorvastatin 80 mg tablet 80 mg PO QHS cholesterol #90 tabs 11/30/19 [Rx Last Taken 04/07/22] isosorbide mononitrate 30 mg tablet,extended release 24 hr 30 mg PO DAILY BP 03/03/21 [History Last Taken 04/07/22] paroxetine HCl 20 mg tablet 20 mg PO QHS DEPRESSION 07/07/21 [History Last Taken 04/07/22] insulin glargine 100 unit/mL (3 mL) subcutaneous pen (Lantus Solostar U-100 Insulin) 30 unit subcut DAILY diabetes 11/16/21 [History Last Taken 04/07/22] insulin lispro 100 unit/mL subcutaneous pen (Humalog KwikPen (U-100) Insulin) 5 unit subcut LUNCH dm 11/16/21 [History Last Taken 04/07/22] cyclobenzaprine 5 mg tablet 5 mg PO QHS pain #0 tabs 12/23/21 [Rx Last Taken 04/07/22] gabapentin 300 mg capsule 300 mg BID nerve pain 12/23/21 [History Last Taken 04/07/22] bupropion HCl 150 mg 24 hr tablet, extended release 150 mg PO DAILY mood 02/04/22 [History Last Taken 04/07/22] carvedilol 12.5 mg tablet 12.5 mg PO BID heart 02/04/22 [History Last Taken 04/07/22] hydroxyzine HCl 25 mg tablet 25 mg PO TID PRN Anxiety 02/04/22 [History Last Taken 04/07/22] carvedilol 6.25 mg tablet 6.25 mg PO BID heart 04/09/22 [History Last Taken 04/07/22] chlorpheniramine-acetaminophen 2 mg-325 mg tablet (Coricidin HBP Cold and Flu) 2 tab PO Q4H cold 04/09/22 [History Last Taken 04/07/22] guaifenesin 600 mg tablet, extended release 12 hr 600 - 1,200 mg PO BID congestion 04/09/22 [History Last Taken 04/07/22] melatonin 5 mg tablet 5 mg PO QHS sleep 04/09/22 [History Last Taken 04/07/22] pramipexole 1.5 mg tablet 1.5 mg PO BID rls 04/09/22 [History Last Taken 04/07/22] Allergy/AdvReac Type Severity Reaction Status Date / Time Penicillins Allergy swelling Verified 04/09/22 16:37 in throat vancomycin Allergy Itching Verified 04/09/22 16:37 metronidazole AdvReac Nausea Verified 04/09/22 16:37 oxycodone [From OxyContin] AdvReac Shortness Verified 04/09/22 16:37 of breath Family History Mother Diabetes CVA (cerebral vascular accident) Brother CAD (coronary artery disease) CABG X 3 Cancer testicular Diabetes Brother CAD (coronary artery disease) CABG X3 Diabetes Brother CAD (coronary artery disease) Stents Diabetes Sister CAD (coronary artery disease) CABG x 3 CVA (cerebral vascular accident) Diabetes Surgical History History of bilateral carpal tunnel release History of History of coronary artery stent placement (12/31/20) History of foot surgery History of rotator cuff surgery Social History household members: none number of children: 2 current occupational status: disabled Smoking Status: Never smoker alcohol intake: never substance use type: does not use caffeine: Yes Type: carbonated beverages Number of servings: 2 ROS ROS Narrative Review of systems difficult to ascertain patient is currently encephalopathic and unable to communicate. Physical Exam Narrative Patient unable to communicate. Lungs are clear heart exam S1-S2 no murmurs appreciated abdomen is obese but soft. Patient does have bilateral foot ulcers with dressings are in place. No peripheral skin lesions noted. Medical Records Data Medical Nutrition Assessment Dietitian: Malnutrition Criteria Met Start: 04/12/22 15:13 Freq: Status: Active Protocol: Document 04/16/22 09:36 AG (Rec: 04/16/22 09:37 AG [id number]) Nutrition Malnutrition Evidence of Malnutrition Exists Yes Malnutrition (severe): Acute Illness/Injury Evidenced By Suboptimal Energy Intake ( Severe),Weight Loss (Severe) Intake Problem Increased Nutrient Needs (specify) Etiology increased protein needs related to wounds Signs/Symptoms as evidenced by multiple wounds, DM foot infection to L bottom foot Status Active Problem Inadequate Oral Intake Etiology related to altered mental status Signs/Symptoms as evidenced by estimated PO intake meeting <50% of estimated energy needs x 6 days Status Active Problem Clinical Problem Acute Disease or Injury Related Malnutrition Etiology severe, acute malnutrition related to inadequate energy intake d/t altered mental status Signs/Symptoms as evidenced by unintentional 1.8kg/2% wt loss <1 week; estimated PO intake meeting < 50% of estimated energy needs x 6 days Status Active Problem Recommendation Dietitian Recommendations/Changes recommend regular, no added salt diet given acute malnutrition (texture/ consistency modifications per PADDING MACHINE OPERATOR) when PO diet appropriate; resume Ensure Clear 120mL 4x/ day as pt accepting when diet resumed (note Ensure Clear cannot be thickened); Ted BID for wound healing when diet resumed. Lab / Micro Data Result Diagrams: 04/16/22 05:34 04/16/22 05:34 Labs: Laboratory Results - last 24 hr 04/15/22 11:01: POC Glucose 134 H 04/15/22 15:54: POC Glucose 128 H 04/15/22 22:05: POC Glucose 159 H 04/16/22 05:34: Random Vancomycin 17.3 H 04/16/22 05:34: Sodium 141, Potassium 4.5, Chloride 113 H, Carbon Dioxide 12.0 L , Anion Gap 16 H, BUN 73 H, Creatinine 3.48 H, Estim Creat Clear Calc 16.90, Est GFR (MDRD) Af Amer 17 L, Est GFR (MDRD) Non-Af 14 L, BUN/Creatinine Ratio 21.0 H , Glucose 184 H, Calcium 8.5, Phosphorus 4.8, Albumin 1.3 L 04/16/22 05:34: WBC 16.6 H, RBC 3.00 L, Hgb 8.3 L, Hct 24.9 L, MCV 83.0, MCH 27.7, MCHC 33.3, RDW Std Deviation 53.5 H, RDW Coeff of Fior 17.9 H, Plt Count 314, MPV 10.6, Immature Gran % (Auto) 3.700 H, Neut % (Auto) 88.5 H, Lymph % (Auto) 4.9 L, Mcminn % (Auto) 2.5, Eos % (Auto) 0.2, Baso % (Auto) 0.2, Absolute Neuts (auto) 14.6 H, Absolute Lymphs (auto) 0.82 L, Nucleated RBC % 0.1 04/16/22 07:43: POC Glucose 181 H Micro: Microbiology 04/13/22 07:30 Blood Culture (Wb) - Anticubital Left Blood Culture - Preliminary Staphylococcus aureus 04/13/22 07:20 Blood Culture (Wb) - Pic Blood Culture - Final Meth. resistant Staph. aureus 04/09/22 20:51 Wound - Left Foot Gram Stain - Final 04/09/22 20:51 Wound - Left Foot Wound Culture - Final Meth. resistant Staph. aureus Streptococcus mitis/ oralis Corynebacterium striatum 04/09/22 20:51 Wound - Left Foot Anaerobic Culture - Final Prevotella bivia Bacteroides pyogenes Rhythm Strip Rhythm Strip: Sinus Rhythm Rate: 60 Ectopy: None
--- NOTE | 2022-04-16 10:05 | CASEMGMT ---
Discharge Tar Boiler Hailey from [facility] reached out patient referral has been declined. LUCRETIA Sellers has been notified. Yaneli Hammond Discharge Tar Boiler
[2022-04-16 12:15] LABS: Bedside Glucose 186 mg/dL (74-106)
--- NOTE | 2022-04-16 13:29 | PCM.PN.REN ---
Subjective Subjective Resting quietly in bed, no acute distress noted. Not following commands Objective Data Objective Data Vital Signs: Vital Signs Temp Pulse Resp BP Pulse Ox O2 Del Method 97.3 F L 107 H 20 H 161/79 H 98 Room Air 04/16/22 03:16 04/16/22 05:32 04/16/22 05:32 04/16/22 05:32 04/16/22 05:32 04/16/22 07:52 Oxygen Delivery Method Room Air Weight: 90.6 kg Body Mass Index (BMI) 29.0 Intake & Output: Intake and Output for Last 24 Hours 04/14/22 04/15/22 04/16/22 23:59 23:59 23:59 Intake Total 2773.34 / 2773.34 2205.00 / 2205.00 1370 / 1370 Output Total 2800 / 2800 650 / 975 1225 / 1225 Balance -26.66 / -26.66 1555.00 / 1230.00 145 / 145 Medical Nutrition Assessment Dietitian: Malnutrition Criteria Met Start: 04/12/22 15:13 Freq: Status: Active Protocol: Document 04/16/22 09:36 AG (Rec: 04/16/22 09:37 AG [id number]) Nutrition Malnutrition Evidence of Malnutrition Exists Yes Malnutrition (severe): Acute Illness/Injury Evidenced By Suboptimal Energy Intake ( Severe),Weight Loss (Severe) Intake Problem Increased Nutrient Needs (specify) Etiology increased protein needs related to wounds Signs/Symptoms as evidenced by multiple wounds, DM foot infection to L bottom foot Status Active Problem Inadequate Oral Intake Etiology related to altered mental status Signs/Symptoms as evidenced by estimated PO intake meeting <50% of estimated energy needs x 6 days Status Active Problem Clinical Problem Acute Disease or Injury Related Malnutrition Etiology severe, acute malnutrition related to inadequate energy intake d/t altered mental status Signs/Symptoms as evidenced by unintentional 1.8kg/2% wt loss <1 week; estimated PO intake meeting < 50% of estimated energy needs x 6 days Status Active Problem Recommendation Dietitian Recommendations/Changes recommend regular, no added salt diet given acute malnutrition (texture/ consistency modifications per SUPERINTENDENT CONSTRUCTION) when PO diet appropriate; resume Ensure Clear 120mL 4x/ day as pt accepting when diet resumed (note Ensure Clear cannot be thickened); Ted BID for wound healing when diet resumed. Lab / Micro Data Result Diagrams: 04/16/22 05:34 04/16/22 05:34 Labs: Laboratory Results - last 24 hr 04/15/22 15:54: POC Glucose 128 H 04/15/22 22:05: POC Glucose 159 H 04/16/22 05:34: Random Vancomycin 17.3 H 04/16/22 05:34: Sodium 141, Potassium 4.5, Chloride 113 H, Carbon Dioxide 12.0 L, Anion Gap 16 H, BUN 73 H, Creatinine 3.48 H, Estim Creat Clear Calc 16.90, Est GFR (MDRD) Af Amer 17 L, Est GFR (MDRD) Non-Af 14 L, BUN/Creatinine Ratio 21.0 H, Glucose 184 H, Calcium 8.5, Phosphorus 4.8, Albumin 1.3 L 04/16/22 05:34: WBC 16.6 H, RBC 3.00 L, Hgb 8.3 L, Hct 24.9 L, MCV 83.0, MCH 27.7, MCHC 33.3, RDW Std Deviation 53.5 H, RDW Coeff of Fior 17.9 H, Plt Count 314, MPV 10.6, Immature Gran % (Auto) 3.700 H, Neut % (Auto) 88.5 H, Lymph % (Auto) 4.9 L, [place] % (Auto) 2.5, Eos % (Auto) 0.2, Baso % (Auto) 0.2, Absolute Neuts (auto) 14.6 H, Absolute Lymphs (auto) 0.82 L, Nucleated RBC % 0.1 04/16/22 07:43: POC Glucose 181 H 04/16/22 11:51: POC Glucose 186 H Micro: Microbiology 04/13/22 07:30 Blood Culture (Wb) - Anticubital Left Blood Culture - Preliminary Staphylococcus aureus 04/13/22 07:20 Blood Culture (Wb) - Pic Blood Culture - Final Meth. resistant Staph. aureus 04/09/22 20:51 Wound - Left Foot Gram Stain - Final 04/09/22 20:51 Wound - Left Foot Wound Culture - Final Meth. resistant Staph. aureus Streptococcus mitis/ oralis Corynebacterium striatum 04/09/22 20:51 Wound - Left Foot Anaerobic Culture - Final Prevotella bivia Bacteroides pyogenes 04/11/22 12:30 Wound Abcess - Right Foot Gram Stain - Final 04/11/22 12:30 Wound Abcess - Right Foot Wound Culture - Final Meth. resistant Staph. aureus 04/11/22 12:30 Wound Abcess - Right Foot Anaerobic Culture - Final No anaerobic bacteria isolated. 04/09/22 18:40 Urine, Catheterized Urine Culture - Final Culture exhibits no growth. 04/09/22 17:12 Blood Culture (Wb) - Anticubital Right Blood Culture - Final Staphylococcus aureus 04/09/22 16:50 Blood Culture (Wb) - Anticubital Right Bacteria Detection (PCR) - Final Staphylococcus aureus mecA Resistance Marker 04/09/22 16:50 Blood Culture (Wb) - Anticubital Right Blood Culture - Final Meth. resistant Staph. aureus Rhythm Strip Rhythm Strip: Sinus Rhythm Rate: 60 Ectopy: None Physical Exam Narrative General: No apparent distress Neck: Supple, no JVD. Heart: Normal S1, S2. No rubs, murmurs or gallops. Lungs: Clear to auscultation anteriorly. No wheezes, rhonchi, rales noted. On room air Abdominal: Normal bowel sounds, soft Extremities: Both feet are wrapped in MYLA bandages. No edema : Indwelling Tirado catheter with clear urine in bag Assessment & Plan Assessment/Plan (1) FELI (acute kidney injury): PLAN: -FELI secondary to ischemic ATN related to septic shock. Patient was oliguric but is now non-oliguric -Serum creatinine 3.3 mg/dL on admission, peaked 4.08 mg/dL on 04/13 and is slowly improving daily with current creatinine 3.48mg/dL. - Her appetite is still poor and recommend keeping on IVF. She is now NPO and speech is following -At this time there is no significant uremic symptoms, hyperkalemia, volume overload, or severe acidosis therefore there is no immediate need for kidney replacement therapy -Current medications are reviewed. They are all appropriately dosed for her renal function. -recommend to continue on IVF as patient was not eating and is now NPO. -Continue to monitor renal function (2) Chronic kidney disease, stage 4 (severe): PLAN: Baseline serum creatinine is around 2.00 to 2.40 mg/dL. The patient has underlying diabetic kidney disease. (3) Metabolic acidosis: PLAN: Suspect her initial acidosis from FELI/CKD along with poor tissue perfusion, patient also received IV NS for volume expansion which can also contribute to non-anion gap metabolic acidosis. There was no ketones on urine dipstick on 04/09/2022. She is now having diarrhea which can contribute to acidosis and has not been taking oral bicarb. Oral meds are now being crushed and re-started this afternoon including oral bicarb tid. At this time, acidosis is not severe enough to require urgent dialysis. Continue to monitor serum bicarbonate. Currently on LR. (4) Septic shock: PLAN: Septic shock is likely secondary to cellulitis, diabetic foot infection +MRSA and possibly osteomyelitis. Antimicrobial coverage as per hospitalist and ID; cefepime and vanco Blood cultures from 04/13 +staph aureus
--- NOTE | 2022-04-16 14:00 | CASEMGMT ---
Addendum entered by Verito Abreu 04/16/22 16:28: Social Work SW placed call to pt dgt Trisha regarding SNF choice. [facility] choice is [facility]. SW informed that referral will be sent but requested dgt consider other options and have 3 more choices ready for Tuesday if [facility] cannot accept. SNF List left in room. Referral sent to [facility]. Will followup on Tuesday. ERIN Masters Original Note: Social Work Phone call placed to pt dgt Trisha and notified that [facility] has denied acceptance to pt. LUCRETIA reviewed list with dgt of facilities that are in network with insurance and requested next choice. Dgt stating she does not have a second choice and needs time to look into this. LUCRETIA informed Trisha that next choice is needed so SNF can be worked on and requested Trisha call LUCRETIA back shortly with choices. Plan: SNF, waiting on dgt to choose facility ERIN Masters
[2022-04-16] MEDS: Sodium Bicarbonate 650 MG Tablet PO ×2 (14:15→20:33)
[2022-04-16 17:31] LABS: Bedside Glucose 214 mg/dL (74-106)
--- NOTE | 2022-04-16 17:53 | CT_ITS ---
STUDY: CT BRAIN WITHOUT CONTRAST REASON FOR EXAM: Female, 56 years old. encephalopathy Individualized dose optimization techniques were used for this CT. TECHNIQUE: Transaxial CT imaging of the brain was performed without administration of intravenous contrast material. COMPARISON: 04/10/2022 FINDINGS: There are calcifications around the carotid artery. These are noted in the cavernous carotid arteries. Normal calvarium. Normal soft tissues. There is mild cerebral atrophy with widening of the extra-axial spaces and ventricular dilatation. There are areas of decreased attenuation within the white matter tracts of the supratentorial brain, consistent with microvascular disease changes. Normal basal ganglia and thalami. Normal brainstem. There is mild cerebellar atrophy. There is no intracranial hemorrhage. There are no findings of an acute ischemic infarction. Normal visualized paranasal sinuses. ASPECTS Score for Acute Strokes: 07/19 CT/Brain/Head without Contrast IMPRESSION: There are no acute findings. Chronic involutional changes of the brain. Electronically Signed: Dallas Arndt MD at 18:32 EDT ,
[2022-04-16 20:10] VITALS: BP 161/82; PULSE 100; RESP 18; TEMP 36.9; O2SAT 98
[2022-04-16] MEDS: Atorvastatin Calcium 80 MG Tablet PO (20:33)
[2022-04-16] MEDS: Paroxetine 20 MG Tablet PO (20:33)
[2022-04-16] MEDS: Haloperidol Lactate 5 MG/ML Vial 2 MG IM (20:47)
[2022-04-16 21:21] LABS: Bedside Glucose 193 mg/dL (74-106)
[2022-04-17] MEDS: Lactated Ringers 1,000 ML 100 ML IV ×3 (00:03→21:06)
[2022-04-17 02:05] VITALS: BP 163/84; PULSE 94; RESP 18; TEMP 36.6; O2SAT 94
[2022-04-17] MEDS: Haloperidol Lactate 5 MG/ML Vial 2 MG IM ×4 (02:05→21:00)
[2022-04-17 02:11] VITALS: BP 163/84; PULSE 104
[2022-04-17] MEDS: hydrALAZINE 20 MG/ML Vial 10 MG IV (02:11)
[2022-04-17] MEDS: Acetaminophen 650 MG Suppository RC ×3 (05:42→17:21)
[2022-04-17] MEDS: Menthol/Lanolin/Calamine/Znox 113 GM Tube 1 APPLIC TOPICAL ×3 (05:42→20:42)
--- NOTE | 2022-04-17 07:13 | PN.HOSP_ITS ---
Subjective Subjective Still confused. Pulled out PICC. Objective Data Objective Data Vital Signs: Vital Signs Temp Pulse Resp BP Pulse Ox O2 Del Method 36.6 C 104 H 18 163/84 H 94 Room Air 04/17/22 02:05 04/17/22 02:11 04/17/22 02:05 04/17/22 02:11 04/17/22 02:05 04/17/22 02:05 Oxygen Delivery Method Room Air Weight: 91 kg Body Mass Index (BMI) 29.0 Intake & Output: Intake and Output for Last 24 Hours 04/15/22 04/16/22 04/17/22 23:59 23:59 23:59 Intake Total 2205.00 / 2205.00 3370 / 3370 Output Total 650 / 975 2175 / 2175 400 / 400 Balance 1555.00 / 1230.00 1195 / 1195 -400 / -400 Medical Nutrition Assessment Dietitian: Malnutrition Criteria Met Start: 04/12/22 15:13 Freq: Status: Active Protocol: Document 04/16/22 09:36 AG (Rec: 04/16/22 09:37 AG [id number]) Nutrition Malnutrition Evidence of Malnutrition Exists Yes Malnutrition (severe): Acute Illness/Injury Evidenced By Suboptimal Energy Intake ( Severe),Weight Loss (Severe) Intake Problem Increased Nutrient Needs (specify) Etiology increased protein needs related to wounds Signs/Symptoms as evidenced by multiple wounds, DM foot infection to L bottom foot Status Active Problem Inadequate Oral Intake Etiology related to altered mental status Signs/Symptoms as evidenced by estimated PO intake meeting <50% of estimated energy needs x 6 days Status Active Problem Clinical Problem Acute Disease or Injury Related Malnutrition Etiology severe, acute malnutrition related to inadequate energy intake d/t altered mental status Signs/Symptoms as evidenced by unintentional 1.8kg/2% wt loss <1 week; estimated PO intake meeting < 50% of estimated energy needs x 6 days Status Active Problem Recommendation Dietitian Recommendations/Changes recommend regular, no added salt diet given acute malnutrition (texture/ consistency modifications per ORIENTAL MEDICINE PRACTITIONER) when PO diet appropriate; resume Ensure Clear 120mL 4x/ day as pt accepting when diet resumed (note Ensure Clear cannot be thickened); Ted BID for wound healing when diet resumed. Lab / Micro Data Result Diagrams: 04/16/22 05:34 04/17/22 07:32 Labs: Laboratory Results - last 24 hr 04/16/22 07:43: POC Glucose 181 H 04/16/22 11:51: POC Glucose 186 H 04/16/22 17:06: POC Glucose 214 H 04/16/22 20:59: POC Glucose 193 H Micro: Microbiology 04/13/22 07:30 Blood Culture (Wb) - Anticubital Left Blood Culture - Preliminary Meth. resistant Staph. aureus 04/13/22 07:20 Blood Culture (Wb) - Pic Blood Culture - Final Meth. resistant Staph. aureus 04/09/22 20:51 Wound - Left Foot Gram Stain - Final 04/09/22 20:51 Wound - Left Foot Wound Culture - Final Meth. resistant Staph. aureus Streptococcus mitis/ oralis Corynebacterium striatum 04/09/22 20:51 Wound - Left Foot Anaerobic Culture - Final Prevotella bivia Bacteroides pyogenes 04/11/22 12:30 Wound Abcess - Right Foot Gram Stain - Final 04/11/22 12:30 Wound Abcess - Right Foot Wound Culture - Final Meth. resistant Staph. aureus 04/11/22 12:30 Wound Abcess - Right Foot Anaerobic Culture - Final No anaerobic bacteria isolated. 04/09/22 18:40 Urine, Catheterized Urine Culture - Final Culture exhibits no growth. 04/09/22 17:12 Blood Culture (Wb) - Anticubital Right Blood Culture - Final Staphylococcus aureus 04/09/22 16:50 Blood Culture (Wb) - Anticubital Right Bacteria Detection (PCR) - Final Staphylococcus aureus mecA Resistance Marker 04/09/22 16:50 Blood Culture (Wb) - Anticubital Right Blood Culture - Final Meth. resistant Staph. aureus Radiography Diagnostic Testing: Radiology Impression Brain CT 04/16/22 17:53 IMPRESSION: There are no acute findings. Chronic involutional changes of the brain. Electronically Signed: Dallas Arndt MD at 18:32 EDT , Rhythm Strip Rhythm Strip: Sinus Rhythm Rate: 60 Ectopy: None Physical Exam Const Orientation / Consciousness: confused Resp normal respiratory effort, no retractions, no use of accessory muscles and clear to auscultation bilaterally Cardio regular rate, regular rhythm, S1 normal heart sound and S2 normal heart sound GI normal to inspection, nondistended, normoactive bowel sounds Assessment & Plan Assessment/Plan (1) Cellulitis of both lower extremities: PLAN: Plan 1. Septic shock resolved due to MRSA osteomyelitis with bacteremia with acute sepsis related organ dysfunction evidenced by acute on chronic kidney disease, altered mental status. Lactic acid normal. On IV vancomycin and cefepime patient Blood cultures positive of MRSA. Wound culture: S. aureus, Alpha hemolytic strep and corynebacterium s/p debridement on the Plan: * continue IV vanc and cefepime * follow up cultures 2. right foot osteomyelitis of cuboid and base of 4th and 5th toes s/p debridement on the podiatry following if amputation required, likely would be BKA Consult ID for abx recommendations 3. Bacteremia MRSA /2 above TTE negative for vegetation. If blood cultures continue to be positive, may need to consider HONG repeat BCx 04/13: + MRSA repeat BCx 04/16 PICC pulled out 04/17. Will keep out until we can confirm she is no longer bacteremic. (PICC ordered 04/10) 4. Acute kidney injury, Likely due to ATN Creatinine worse today, baseline around 2.7 04/11: Oliguria with positive fluid balance. Poly Packer And Heat Sealer is consulted. 04/12: oliguric. nephrology following. Discussed with Dr. Romero. Plan is for IV furosemide today. Patient may very well likely require renal placement therapy. Recommend patient stay in the ICU because she does need line placement on the fifth. 04/13: urine outpt improved with furosemide, but creatinine worse again. nephrology--no need for BURGLAR ALARM ASSEMBLER at this time. 04/14: non-oliguric. creatinine improved to 4 04/15: Cr 3.69. Continue IVF. 04/16: creatinine improved to 3.48. Catheter was not draining and could not be flushed. Replaced and began draining again 5. encephalopathy, toxic-metabolic likely multifactorial: uremia, iatrogenic, and possible underlying psychiatric disorder ongoing DC hydromorphone. Since ongoing and affecting her ability to eat and drink safely, will also discontinue other agents: quetiapine, bupropion, pramipexole. Will continue paro xetine for now so as not to provoke SSRI withdrawal. Repeat head CT w no acute process. 6. Acute hyponatremia, hypovolemic: Resolved Admission sodium 127, baseline normal 136-144 range 7. Diabetes mellitus type II complicated with Charcot foot, polyneuropathy: Fair controlAccu-Chek insulin is covered with Humalog sliding scale. Patient on gabapentin. A1c 9.2. Started on scheduled Humalog insulin 10 units subcutaneous 3 times daily AC and Lantus dose increased. 04/11: Glucose is running low. Holding scheduled insulin . Patient not having adequate oral intake 8. CAD, ischemic cardiomyopathy: We will continue patient Plavix, statin, Coreg, not on MYLA inhibitor/ARB likely secondary to underlying renal disease. Will judiciously hydrate. 01/06/22 ECOH w/ EF 55%, normal diastolic function, trivial MVI, no significant valvular vegetations demonstrated. 04/11: EF 55%, mild concentric LVH, mild 2+ TR. RVSP 48 mmHg consistent with chronic HFpEF 9. Chronic anemia, AOCD: Admission hemoglobin 9.6, MCV normocytic range, baseline hemoglobin 8-9, stable, trend. 04/11: Hemoglobin dropped to 7.3. Hold Plavix. stable 10. Dysphagia limited by mental status ST following MBS ordered. Informed that could not be done by ST until 04/19 11. Chronic conditions: * Hyperlipidemia: We will continue patient home statin therapy. * Restless leg syndrome: l continue patient home pramipexole regimen. * Anxiety and depression: continue patient home bupropion and hydroxyzine regimen as well as paroxetine given clinical improvement and currently mentating appropriately. * Chronic back pain: Patient with MRI of her spine in January 2022 with spinal stenosis with spinal surgery consultation with recommended continued conservative management secondary to significant high risk. * Hypertension: Coreg, isosorbide held * Obesity: Weight loss and lifestyle changes encouraged. 12. DVT prophylaxis: SCDs, heparin. 13. CODE STATUS: Full code 04/16: Asked to see the daughter who was upstairs in the visitors lounge.? She was concerned as the patient appeared to be more confused.? Then her normal self.? Patient is in her room wailing.? Explained to her at length that feel that her confusion is due to medications, which many have been held, but also her underlying medical illnesses.? I told her I was also concerned that there may be some under lying more severe psychiatric disorders beyond dementia that may be contributing.? The daughter brought up the fact the patient has had hallucinations in the past may be concerned the patient may have some underlying dementia.? She had also brought that up as well.? I told her that there is not much we can do to assess the patient for dementia at this time but once she is more medically stabilized she may benefit from seeing a fine arts packer to do a fo rmal geriatric evaluation.? I told her that we will repeat the CAT scan which performed on the second was negative to see if there is been any changes.? She was very upset at first but seem more calm towards the end of our conversation and expressed understanding to what I had explained to her. Charges/Coding Visit Charges Inpatient E&M: 70889 Subs Hosp L2
[2022-04-17 08:05] LABS: Bedside Glucose 166 mg/dL (74-106)
[2022-04-17 08:08] LABS: Anion Gap 11 (5-15); BUN 68 mg/dL (7-18); BUN/Creat Ratio 20.2 RATIO (10-20); Calcium,Total 8.9 mg/dL (8.5-10.1); Chloride 116 mmol/L (98-107); Creatinine, Serum 3.36 mg/dL (0.55-1.02); EST Glomerular Filtration Rate 15 mL/min (>60); Est Glom Filt Rate - Afr Amer 18 mL/min (>60); Glucose 170 mg/dL (74-106); Potassium 4.2 mmol/L (3.5-5.1); Sodium Level 143 mmol/L (136-145)
[2022-04-17 08:37] VITALS: BP 167/93; PULSE 103; RESP 20; TEMP 37.2; O2SAT 98
[2022-04-17] MEDS: Carvedilol 6.25 MG Tablet PO ×2 (08:54→20:37)
--- NOTE | 2022-04-17 09:34 | NURSING ---
Pt is awake and restless. Taking clothes off and continues to moan. Staff alerted nurse Pt has pulled PICC line out. Dr. Prado notified by text.
[2022-04-17] MEDS: Insulin Lispro 100 UNIT/ML INSULN.PEN SC ×2 (11:37→21:00)
[2022-04-17 11:50] LABS: Bedside Glucose 173 mg/dL (74-106)
[2022-04-17] MEDS: Sodium Bicarbonate 650 MG Tablet PO ×2 (15:22→20:39)
[2022-04-17 15:23] VITALS: BP 154/70; PULSE 94; RESP 18; TEMP 36.6; O2SAT 98
[2022-04-17 17:00] LABS: Bedside Glucose 146 mg/dL (74-106)
[2022-04-17] MEDS: Atorvastatin Calcium 80 MG Tablet PO (20:39)
[2022-04-17] MEDS: Paroxetine 20 MG Tablet PO (20:41)
[2022-04-17 21:07] VITALS: BP 175/100; PULSE 105; RESP 18; TEMP 36.6; O2SAT 98
[2022-04-17 21:25] LABS: Bedside Glucose 158 mg/dL (74-106)
[2022-04-18] VITALS (7 sets, daily range): BP systolic 155–178; BP diastolic 84–100; PULSE 93–106; RESP 16–18; TEMP 36.3–36.6; O2SAT 96–97
[2022-04-18] MEDS: Acetaminophen 650 MG Suppository RC ×2 (00:34→05:38)
[2022-04-18] MEDS: hydrALAZINE 20 MG/ML Vial 10 MG IV ×2 (04:23→09:14)
[2022-04-18] MEDS: 0.9% Saline Lock 10 ML Syringe IV (04:24)
[2022-04-18] MEDS: Menthol/Lanolin/Calamine/Znox 113 GM Tube 1 APPLIC TOPICAL ×3 (05:38→21:42)
[2022-04-18] MEDS: Lactated Ringers 1,000 ML 100 ML IV ×2 (05:38→17:27)
[2022-04-18] MEDS: Sodium Bicarbonate 650 MG Tablet PO ×2 (05:38→14:10)
[2022-04-18 06:28] LABS: Absolute Lymphocyte Count 0.93 X10^3/uL (0.83-4.51); Absolute Neutrophil Count 14.4 X10^3/uL (2.0-7.7); Basophil# 0.03 X10^3/uL; Basophil% 0.2 % (0-1); Eosinophil# 0.17 X10^3/uL; Hematocrit 25.2 % (37-47); Hemoglobin 7.8 g/dL (12.0-15.0); Lymphocyte # 0.93 X10^3/ul (0.83-4.51); Lymphocyte % 5.5 % (19-41); Mean Corpuscular Hgb 26.9 pg (27.0-32.0); Mean Corpuscular Volume 86.9 fL (81-99); Mean Platelet Vol. 10.5 fl (6.2-12.0); Monocyte# 0.71 X10^3/uL; Monocyte% 4.2 % (0-10); NRBC Flagged by Analyzer 0 % (0-5); Neutrophil # 14.39 X10^3/uL (2.7-7.7); Neutrophil % 84.9 % (47-70); Platelet Count 260 K/mm3 (150-450); RBC Distribution Width CV 18.8 % (11.6-14.6); RBC Distribution Width SD 58.5 fl (35.1-43.9)
[2022-04-18 06:58] LABS: Anion Gap 14 (5-15); BUN 63 mg/dL (7-18); BUN/Creat Ratio 20.5 RATIO (10-20); Calcium,Total 9.1 mg/dL (8.5-10.1); Chloride 117 mmol/L (98-107); Creatinine, Serum 3.07 mg/dL (0.55-1.02); EST Glomerular Filtration Rate 17 mL/min (>60); Est Glom Filt Rate - Afr Amer 20 mL/min (>60); Estimated Creatinine Clearance 19.15 ml/min; Glucose 163 mg/dL (74-106); Sodium Level 145 mmol/L (136-145)
--- NOTE | 2022-04-18 06:58 | PN.HOSP_ITS ---
Subjective Subjective More alert today able to tell us her name and where she is. Objective Data Objective Data Vital Signs: Vital Signs Temp Pulse Resp BP Pulse Ox O2 Del Method 36.3 C L 93 18 161/84 H 97 Room Air 04/18/22 04:02 04/18/22 06:00 04/18/22 04:02 04/18/22 06:00 04/18/22 04:02 04/18/22 04:02 Oxygen Delivery Method Room Air Weight: 88.3 kg Body Mass Index (BMI) 29.0 Intake & Output: Intake and Output for Last 24 Hours 04/16/22 04/17/22 04/18/22 23:59 23:59 23:59 Intake Total 3370 / 3370 1741.67 / 1741.67 853.33 / 853.33 Output Total 2175 / 2175 1400 / 1700 575 / 575 Balance 1195 / 1195 341.67 / 41.67 278.33 / 278.33 Medical Nutrition Assessment Dietitian: Malnutrition Criteria Met Start: 04/12/22 15:13 Freq: Status: Active Protocol: Document 04/16/22 09:36 AG (Rec: 04/16/22 09:37 AG [id number]) Nutrition Malnutrition Evidence of Malnutrition Exists Yes Malnutrition (severe): Acute Illness/Injury Evidenced By Suboptimal Energy Intake ( Severe),Weight Loss (Severe) Intake Problem Increased Nutrient Needs (specify) Etiology increased protein needs related to wounds Signs/Symptoms as evidenced by multiple wounds, DM foot infection to L bottom foot Status Active Problem Inadequate Oral Intake Etiology related to altered mental status Signs/Symptoms as evidenced by estimated PO intake meeting <50% of estimated energy needs x 6 days Status Active Problem Clinical Problem Acute Disease or Injury Related Malnutrition Etiology severe, acute malnutrition related to inadequate energy intake d/t altered mental status Signs/Symptoms as evidenced by unintentional 1.8kg/2% wt loss <1 week; estimated PO intake meeting < 50% of estimated energy needs x 6 days Status Active Problem Recommendation Dietitian Recommendations/Changes recommend regular, no added salt diet given acute malnutrition (texture/ consistency modifications per SENIOR QUALITY CONTROL TECHNICIAN) when PO diet appropriate; resume Ensure Clear 120mL 4x/ day as pt accepting when diet resumed (note Ensure Clear cannot be thickened); Ted BID for wound healing when diet resumed. Lab / Micro Data Result Diagrams: 04/18/22 05:33 04/18/22 05:33 Labs: Laboratory Results - last 24 hr 04/17/22 07:32: Sodium 143, Potassium 4.2, Chloride 116 H, Carbon Dioxide 16.0 L , Anion Gap 11, BUN 68 H, Creatinine 3.36 H, Estim Creat Clear Calc 17.50, Est GFR (MDRD) Af Amer 18 L, Est GFR (MDRD) Non-Af 15 L, BUN/Creatinine Ratio 20.2 H , Glucose 170 H, Calcium 8.9 04/17/22 07:45: POC Glucose 166 H 04/17/22 11:27: POC Glucose 173 H 04/17/22 16:42: POC Glucose 146 H 04/17/22 20:58: POC Glucose 158 H 04/18/22 05:33: WBC 17.0 H, RBC 2.90 L, Hgb 7.8 L, Hct 25.2 L, MCV 86.9, MCH 26.9 L, MCHC 31.0 L D, RDW Std Deviation 58.5 H, RDW Coeff of Fior 18.8 H, Plt Count 260, MPV 10.5, Immature Gran % (Auto) 4.200 H, Neut % (Auto) 84.9 H, Lymph % (Auto) 5.5 L, Powell % (Auto) 4.2, Eos % (Auto) 1.0, Baso % (Auto) 0.2, Absolute Neuts (auto) 14.4 H, Absolute Lymphs (auto) 0.93, Nucleated RBC % 0 Micro: Microbiology 04/16/22 18:34 Blood Culture (Wb) - Left Wrist Blood Culture - Preliminary 04/13/22 07:30 Blood Culture (Wb) - Anticubital Left Blood Culture - Preliminary Meth. resistant Staph. aureus 04/13/22 07:20 Blood Culture (Wb) - Pic Blood Culture - Final Meth. resistant Staph. aureus 04/09/22 20:51 Wound - Left Foot Gram Stain - Final 04/09/22 20:51 Wound - Left Foot Wound Culture - Final Meth. resistant Staph. aureus Streptococcus mitis/ oralis Corynebacterium striatum 04/09/22 20:51 Wound - Left Foot Anaerobic Culture - Final Prevotella bivia Bacteroides pyogenes 04/11/22 12:30 Wound Abcess - Right Foot Gram Stain - Final 04/11/22 12:30 Wound Abcess - Right Foot Wound Culture - Final Meth. resistant Staph. aureus 04/11/22 12:30 Wound Abcess - Right Foot Anaerobic Culture - Final No anaerobic bacteria isolated. 04/09/22 18:40 Urine, Catheterized Urine Culture - Final Culture exhibits no growth. 04/09/22 17:12 Blood Culture (Wb) - Anticubital Right Blood Culture - Final Staphylococcus aureus 04/09/22 16:50 Blood Culture (Wb) - Anticubital Right Bacteria Detection (PCR) - Final Staphylococcus aureus mecA Resistance Marker 04/09/22 16:50 Blood Culture (Wb) - Anticubital Right Blood Culture - Final Meth. resistant Staph. aureus Rhythm Strip Rhythm Strip: Sinus Rhythm Rate: 60 Ectopy: None Physical Exam Const alert and no apparent distress Resp normal respiratory effort, no retractions, no use of accessory muscles and clear to auscultation bilaterally Cardio regular rate, regular rhythm, S1 normal heart sound and S2 normal heart sound GI normal to inspection, nondistended, normoactive bowel sounds, soft to palpation, non-tender and non-distended Extremity full ROM Extremity Narrative: feet and ankles wrapped--did not remove. Assessment & Plan Assessment/Plan (1) Septic shock: PLAN: resolved due to MRSA osteomyelitis with bacteremia with acute sepsis related organ dysfunction evidenced by acute on chronic kidney disease, altered mental status. Lactic acid normal. On IV vancomycin and cefepime patient Blood cultures positive of MRSA. Wound culture: S. aureus, Alpha hemolytic strep and corynebacterium s/p debridement on the 3rd Plan: * continue IV vanc and cefepime * follow up cultures (2) Osteomyelitis of metatarsal: PLAN: s/p debridement on the 3rd podiatry following if amputation required, likely would be BKA Consult ID for abx recommendations (3) Bacteremia: PLAN: MRSA 2/2 above TTE negative for vegetation. repeat BCx 04/13: + MRSA repeat BCx 04/16: prelim showing GPC in clusters PICC pulled out 04/17. Will keep out until we can confirm she is no longer bacteremic. (PICC ordered and placed 04/10) 04/18: repeat BCx. initial cultures on 04/09 were before PICC placement, but subsequent were after PICC placement. Cannot exclude that the PICC was compromised. Repeat BCx today. If blood cultures continue to be positive, may need to consider HONG. (4) FELI (acute kidney injury): PLAN: Likely due to ATN Creatinine worse today, baseline around 2.7 04/11: Oliguria with positive fluid balance. Hi Teacher is consulted. 04/12: oliguric. nephrology following. Discussed with Dr. Romero. Plan is for IV furosemide today. Patient may very well likely require renal placement therapy. Recommend patient stay in the ICU because she does need line placement on the fifth. 04/13: urine outpt improved with furosemide, but creatinine worse again. DW nephrology--no need for SYSTEMS SPECIALIST at this time. 04/14: non-oliguric. creatinine improved to 4 04/15: Cr 3.69. Continue IVF. 04/16: creatinine improved to 3.48. Catheter was not draining and could not be flushed. Replaced and began draining again 04/18: Cr 3.07 (5) Encephalopathy: PLAN: toxic-metabolic likely multifactorial: uremia, iatrogenic, and possible underlying psychiatric disorder ongoing DC hydromorphone. Since ongoing and affecting her ability to eat and drink safely, will also discontinue other agents: quetiapine, bupropion, pramipexole. Will continue paroxetine for now so as not to provoke SSRI withdrawal. Repeat head CT w no acute process. I would continue to hold potentiating medications given her protracted period of lethargy (6) Dysphagia: QUALIFIERS: Dysphagia type: unspecified Qualified Code(s): R13.10 - Dysphagia, unspecified PLAN: improved once more alert. Diet advanced today. PLAN: Plan Chronic conditions: * Hyperlipidemia: We will continue patient home statin therapy. * Restless leg syndrome: l continue patient home pramipexole regimen. * Anxiety and depression: paxil continued, other meds held given encephalopathy * Chronic back pain: Patient with MRI of her spine in January 2022 with spinal stenosis with spinal surgery consultation with recommended continued conservative management secondary to significant high risk. * Hypertension: Coreg. stable * Obesity: Weight loss and lifestyle changes encouraged. * Diabetes mellitus type II complicated with Charcot foot, polyneuropathy: Fair control Glargine held given NPO status. SSI * CAD, ischemic cardiomyopathy: We will continue patient Plavix, statin, Coreg, not on MYLA inhibitor/ARB likely secondary to underlying renal disease. 01/06/22 ECOH w/ EF 55%, normal diastolic function, trivial MVI, no significant valvular vegetations demonstrated. 04/11: EF 55%, mild concentric LVH, mild 2+ TR. RVSP 48 mmHg consistent with chronic HFpEF. Clopidogrel on home med rec, but on DC summary from January. Has had PCI December 2020 * Chronic anemia, AOCD: stable DVT prophylaxis: SCDs CODE STATUS: Full code 04/16: Asked to see the daughter who was upstairs in the visitors lounge.? She was concerned as the patient appeared to be more confused.? Then her normal self.? Patient is in her room wailing.? Explained to her at length that feel that her confusion is due to medications, which many have been held, but also her underlying medical illnesses.? I told her I was also concerned that there may be some under lying more severe psychiatric disorders beyond dementia that may be contributing.? The daughter brought up the fact the patient has had hallucinations in the past may be concerned the patient may have some underlying dementia.? She had also brought that up as well.? I told her that there is not much we can do to assess the patient for dementia at this time but once she is more medically stabilized she may benefit from seeing a clerical production worker to do a formal geriatric evaluation.? I told her that we will repeat the CAT scan which performed on the second was negative to see if there is been any changes.? She was very upset at first but seem more calm towards the end of our conversation and expressed understanding to what I had explained to her. Charges/Coding Visit Charges Inpatient E&M: 82922 Subs Hosp L3
[2022-04-18 07:02] LABS: Vancomycin, Random Level 23.7 ug/mL (0.0-15.0)
--- NOTE | 2022-04-18 07:26 | PCM.RX.CS ---
Consult Pharmacy has been consulted to manage selected antiobiotic: Vancomycin Suspected Infection: Bacteremia Labs: Sodium 145 mmol/L (136-145) 04/18/22 05:33 Potassium 4.0 mmol/L (3.5-5.1) 04/18/22 05:33 Chloride 117 mmol/L (98-107) H 04/18/22 05:33 Carbon Dioxide 14.0 mmol/L (21.0-32.0) L 04/18/22 05:33 Anion Gap 14 (5-15) 04/18/22 05:33 BUN 63 mg/dL (7-18) H 04/18/22 05:33 Creatinine 3.07 mg/dL (0.55-1.02) H 04/18/22 05:33 Est GFR (MDRD) Af Amer 20 mL/min (>60) L 04/18/22 05:33 Est GFR (MDRD) Non-Af 17 mL/min (>60) L 04/18/22 05:33 BUN/Creatinine Ratio 20.5 RATIO (10-20) H 04/18/22 05:33 Glucose 163 mg/dL (74-106) H 04/18/22 05:33 Vancomycin Trough 29.2 ug/mL (5.0-15.0) H 04/11/22 21:30 Random Vancomycin 23.7 ug/mL (0.0-15.0) H 04/18/22 06:20 Microbiology: Microbiology 04/16/22 18:34 Blood Culture (Wb) - Left Wrist Blood Culture - Preliminary 04/13/22 07:30 Blood Culture (Wb) - Anticubital Left Blood Culture - Preliminary Meth. resistant Staph. aureus 04/13/22 07:20 Blood Culture (Wb) - Pic Blood Culture - Final Meth. resistant Staph. aureus 04/09/22 20:51 Wound - Left Foot Gram Stain - Final 04/09/22 20:51 Wound - Left Foot Wound Culture - Final Meth. resistant Staph. aureus Streptococcus mitis/ oralis Corynebacterium striatum 04/09/22 20:51 Wound - Left Foot Anaerobic Culture - Final Prevotella bivia Bacteroides pyogenes 04/11/22 12:30 Wound Abcess - Right Foot Gram Stain - Final 04/11/22 12:30 Wound Abcess - Right Foot Wound Culture - Final Meth. resistant Staph. aureus 04/11/22 12:30 Wound Abcess - Right Foot Anaerobic Culture - Final No anaerobic bacteria isolated. 04/09/22 18:40 Urine, Catheterized Urine Culture - Final Culture exhibits no growth. 04/09/22 17:12 Blood Culture (Wb) - Anticubital Right Blood Culture - Final Staphylococcus aureus 04/09/22 16:50 Blood Culture (Wb) - Anticubital Right Bacteria Detection (PCR) - Final Staphylococcus aureus mecA Resistance Marker 04/09/22 16:50 Blood Culture (Wb) - Anticubital Right Blood Culture - Final Meth. resistant Staph. aureus Pharmacy Plan for Drug Dosing: VANCOMYCIN LEVEL RECEIVED Current Vancomycin Dose: 1250MG X1 04/16 @ 1012 Number of Doses Received: 3 Vancomycin Level: 23.7 MG/DL Hours Since Last Dose: 44 Renal Function: SCR 3.07, CRCL 22.9 ML/MIN (USING ADJUSTED BW) Renal Function Trend: SLOWLY IMPROVING Lab/Micro: MRSA IN BLOOD CX, REPEAT BLOOD CX WITH GPC Vancomycin Plan/Comments: 44 HOUR LEVEL IS SUPRATHERAPEUTIC (GOAL 15-20MG/DL) SO WILL HOLD FURTHER DOSES AND GET A RANDOM LEVEL TOMORROW. Pending Level: 04/19/22 @ 0600 - RANDOM Pharmacy Service will continue to monitor and adjust dosing as required.
[2022-04-18 07:51] LABS: Bedside Glucose 159 mg/dL (74-106)
--- NOTE | 2022-04-18 07:56 | PCM.PROGNOTE ---
Subjective Subjective Patient was seen this morning for follow up feet bilateral. WBC 17.0, patient is afebrile. She is resting in bed. Objective Data Objective Data Vital Signs: Vital Signs Temp Pulse Resp BP Pulse Ox O2 Del Method 97.3 F L 93 18 161/84 H 97 Room Air 04/18/22 04:02 04/18/22 06:00 04/18/22 04:02 04/18/22 06:00 04/18/22 04:02 04/18/22 04:02 Oxygen Delivery Method Room Air Weight: 88.3 kg Body Mass Index (BMI) 29.0 Intake & Output: Intake and Output for Last 24 Hours 04/16/22 04/17/22 04/18/22 23:59 23:59 23:59 Intake Total 3370 / 3370 1741.67 / 1741.67 853.33 / 853.33 Output Total 2175 / 2175 1400 / 1700 575 / 575 Balance 1195 / 1195 341.67 / 41.67 278.33 / 278.33 Medical Nutrition Assessment Dietitian: Malnutrition Criteria Met Start: 04/12/22 15:13 Freq: Status: Active Protocol: Document 04/16/22 09:36 AG (Rec: 04/16/22 09:37 AG [id number]) Nutrition Malnutrition Evidence of Malnutrition Exists Yes Malnutrition (severe): Acute Illness/Injury Evidenced By Suboptimal Energy Intake ( Severe),Weight Loss (Severe) Intake Problem Increased Nutrient Needs (specify) Etiology increased protein needs related to wounds Signs/Symptoms as evidenced by multiple wounds, DM foot infection to L bottom foot Status Active Problem Inadequate Oral Intake Etiology related to altered mental status Signs/Symptoms as evidenced by estimated PO intake meeting <50% of estimated energy needs x 6 days Status Active Problem Clinical Problem Acute Disease or Injury Related Malnutrition Etiology severe, acute malnutrition related to inadequate energy intake d/t altered mental status Signs/Symptoms as evidenced by unintentional 1.8kg/2% wt loss <1 week; estimated PO intake meeting < 50% of estimated energy needs x 6 days Status Active Problem Recommendation Dietitian Recommendations/Changes recommend regular, no added salt diet given acute malnutrition (texture/ consistency modifications per BREWERY TECHNICIAN) when PO diet appropriate; resume Ensure Clear 120mL 4x/ day as pt accepting when diet resumed (note Ensure Clear cannot be thickened); Ted BID for wound healing when diet resumed. Lab / Micro Data Result Diagrams: 04/18/22 05:33 04/18/22 05:33 Labs: Laboratory Results - last 24 hr 04/17/22 07:32: Sodium 143, Potassium 4.2, Chloride 116 H, Carbon Dioxide 16.0 L, Anion Gap 11, BUN 68 H, Creatinine 3.36 H, Estim Creat Clear Calc 17.50, Est GFR (MDRD) Af Amer 18 L, Est GFR (MDRD) Non-Af 15 L, BUN/Creatinine Ratio 20.2 H, Glucose 170 H, Calcium 8.9 04/17/22 07:45: POC Glucose 166 H 04/17/22 11:27: POC Glucose 173 H 04/17/22 16:42: POC Glucose 146 H 04/17/22 20:58: POC Glucose 158 H 04/18/22 05:33: WBC 17.0 H, RBC 2.90 L, Hgb 7.8 L, Hct 25.2 L, MCV 86.9, MCH 26.9 L, MCHC 31.0 L D, RDW Std Deviation 58.5 H, RDW Coeff of Fior 18.8 H, Plt Count 260, MPV 10.5, Immature Gran % (Auto) 4.200 H, Neut % (Auto) 84.9 H, Lymph % (Auto) 5.5 L, [place] % (Auto) 4.2, Eos % (Auto) 1.0, Baso % (Auto) 0.2, Absolute Neuts (auto) 14.4 H, Absolute Lymphs (auto) 0.93, Nucleated RBC % 0 04/18/22 05:33: Sodium 145, Potassium 4.0, Chloride 117 H, Carbon Dioxide 14.0 L, Anion Gap 14, BUN 63 H, Creatinine 3.07 H, Estim Creat Clear Calc 19.15, Est GFR (MDRD) Af Amer 20 L, Est GFR (MDRD) Non-Af 17 L, BUN/Creatinine Ratio 20.5 H, Glucose 163 H, Calcium 9.1 04/18/22 06:20: Random Vancomycin 23.7 H 04/18/22 07:29: POC Glucose 159 H Micro: Microbiology 04/16/22 18:34 Blood Culture (Wb) - Left Wrist Blood Culture - Preliminary 04/13/22 07:30 Blood Culture (Wb) - Anticubital Left Blood Culture - Preliminary Meth. resistant Staph. aureus 04/13/22 07:20 Blood Culture (Wb) - Pic Blood Culture - Final Meth. resistant Staph. aureus 04/09/22 20:51 Wound - Left Foot Gram Stain - Final 04/09/22 20:51 Wound - Left Foot Wound Culture - Final Meth. resistant Staph. aureus Streptococcus mitis/ oralis Corynebacterium striatum 04/09/22 20:51 Wound - Left Foot Anaerobic Culture - Final Prevotella bivia Bacteroides pyogenes 04/11/22 12:30 Wound Abcess - Right Foot Gram Stain - Final 04/11/22 12:30 Wound Abcess - Right Foot Wound Culture - Final Meth. resistant Staph. aureus 04/11/22 12:30 Wound Abcess - Right Foot Anaerobic Culture - Final No anaerobic bacteria isolated. 04/09/22 18:40 Urine, Catheterized Urine Culture - Final Culture exhibits no growth. 04/09/22 17:12 Blood Culture (Wb) - Anticubital Right Blood Culture - Final Staphylococcus aureus 04/09/22 16:50 Blood Culture (Wb) - Anticubital Right Bacteria Detection (PCR) - Final Staphylococcus aureus mecA Resistance Marker 04/09/22 16:50 Blood Culture (Wb) - Anticubital Right Blood Culture - Final Meth. resistant Staph. aureus Rhythm Strip Rhythm Strip: Sinus Rhythm Rate: 60 Ectopy: None Physical Exam Const alert Extremity normal capillary refill and no calf tenderness Extremity Narrative: Left foot: Ulceration plantar lateral midfoot foot down to fascia tissue - healing - no probe to bone - tissues are healthy and viable with no evidence of infection - no drainage, no maloder, no erythema, no necrosis, no visible abscess; no other open lesions, no evidence of ischemia to the foot or ankle, CFT < 2 seconds to all toes, no edema. Right foot: Ulceration to the lateral midfoot probes to bone, there is no cellulitis, no erythema, no edema, no maloder, no necrosis, no visible abscess, there is no drainage today. No other open lesions, no erythema, no necrosis, no visible abscess; no evidence of ischemia to the foot or ankle, CFT < 2 seconds to all toes, no edema. There is no POP or pain on ROM to the foot or ankle bilateral. Assessment & Plan Assessment/Plan (1) Diabetic foot ulcers: (2) Diabetes mellitus with diabetic polyneuropathy: (3) Charcot's joint, right ankle and foot: (4) Osteomyelitis of metatarsal: PLAN: Plan Re-evaluation performed. Reviewed diagnostic data. Patient with 4th/5th metatarsal and cuboid osteomyelitis and Charcot foot- clinically the right and left foot with no cellulitis, no drainage, no maloder, no visible abscess and is clinically stable at this time - continue with antibiotics and local wound care - ID service is on consult. Wound care right foot: Iodoform gauze packing with overlying gauze, kerlix, abd pad, and brando dressing - change daily. Wound care left foot: Silver alginate and gauze, kerlix, abd pad, and brando dressing - change daily. No weightbearing bilateral foot. Patient on IV Vancomycin per ID service. Podiatry will continue to follow.
[2022-04-18] MEDS: Insulin Lispro 100 UNIT/ML INSULN.PEN SC ×2 (09:17→21:40)
[2022-04-18] MEDS: Insulin Lispro 100 UNIT/ML INSULN.PEN 10 UNIT SC ×2 (09:18→12:41)
[2022-04-18] MEDS: Carvedilol 6.25 MG Tablet PO ×2 (09:19→21:27)
[2022-04-18] MEDS: Lidocaine 5% Patch 2 PATCH TOPICAL (09:39)
[2022-04-18 11:46] LABS: Bedside Glucose 128 mg/dL (74-106)
[2022-04-18] MEDS: Acetaminophen 325 MG Tablet 650 MG PO ×2 (12:40→17:27)
--- NOTE | 2022-04-18 16:45 | PN.RENAL_ITS ---
Subjective Subjective Following for FELI on CKD. The patient is somnolent. She is able to be awakened with voice but falls asleep quickly. The patient remains delirious and did pull out her PICC last night. Cannot do ROS. The patient is not taking much p.o. per my discussion with RN. Objective Data Objective Data Vital Signs: Vital Signs Temp Pulse Resp BP Pulse Ox O2 Del Method 97.9 F 100 16 155/89 H 97 Room Air 04/18/22 14:07 04/18/22 14:07 04/18/22 14:07 04/18/22 14:07 04/18/22 14:07 04/18/22 14:07 Oxygen Delivery Method Room Air Weight: 88.3 kg Body Mass Index (BMI) 29.0 Intake & Output: Intake and Output for Last 24 Hours 04/16/22 04/17/22 04/18/22 23:59 23:59 23:59 Intake Total 3370 / 3370 1741.67 / 1741.67 963.33 / 963.33 Output Total 2175 / 2175 1400 / 1700 575 / 575 Balance 1195 / 1195 341.67 / 41.67 388.33 / 388.33 Medical Nutrition Assessment Dietitian: Malnutrition Criteria Met Start: 04/12/22 15:13 Freq: Status: Active Protocol: Document 04/16/22 09:36 AG (Rec: 04/16/22 09:37 [id number]) Nutrition Malnutrition Evidence of Malnutrition Exists Yes Malnutrition (severe): Acute Illness/Injury Evidenced By Suboptimal Energy Intake ( Severe),Weight Loss (Severe) Intake Problem Increased Nutrient Needs (specify) Etiology increased protein needs related to wounds Signs/Symptoms as evidenced by multiple wounds, DM foot infection to L bottom foot Status Active Problem Inadequate Oral Intake Etiology related to altered mental status Signs/Symptoms as evidenced by estimated PO intake meeting <50% of estimated energy needs x 6 days Status Active Problem Clinical Problem Acute Disease or Injury Related Malnutrition Etiology severe, acute malnutrition related to inadequate energy intake d/t altered mental status Signs/Symptoms as evidenced by unintentional 1.8kg/2% wt loss <1 week; estimated PO intake meeting < 50% of estimated energy needs x 6 days Status Active Problem Recommendation Dietitian Recommendations/Changes recommend regular, no added salt diet given acute malnutrition (texture/ consistency modifications per DIRECTOR OF LEADERSHIP DEVELOPMENT) when PO diet appropriate; resume Ensure Clear 120mL 4x/ day as pt accepting when diet resumed (note Ensure Clear cannot be thickened); Ted BID for wound healing when diet resumed. Lab / Micro Data Result Diagrams: 04/18/22 05:33 04/18/22 05:33 Labs: Laboratory Results - last 24 hr 04/17/22 16:42: POC Glucose 146 H 04/17/22 20:58: POC Glucose 158 H 04/18/22 05:33: WBC 17.0 H, RBC 2.90 L, Hgb 7.8 L, Hct 25.2 L, MCV 86.9, MCH 26.9 L, MCHC 31.0 L D, RDW Std Deviation 58.5 H, RDW Coeff of Fior 18.8 H, Plt Count 260, MPV 10.5, Immature Gran % (Auto) 4.200 H, Neut % (Auto) 84.9 H, Lymph % (Auto) 5.5 L, [place] % (Auto) 4.2, Eos % (Auto) 1.0, Baso % (Auto) 0.2, Absolute Neuts (auto) 14.4 H, Absolute Lymphs (auto) 0.93, Nucleated RBC % 0 04/18/22 05:33: Sodium 145, Potassium 4.0, Chloride 117 H, Carbon Dioxide 14.0 L , Anion Gap 14, BUN 63 H, Creatinine 3.07 H, Estim Creat Clear Calc 19.15, Est GFR (MDRD) Af Amer 20 L, Est GFR (MDRD) Non-Af 17 L, BUN/Creatinine Ratio 20.5 H , Glucose 163 H, Calcium 9.1 04/18/22 06:20: Random Vancomycin 23.7 H 04/18/22 07:29: POC Glucose 159 H 04/18/22 11:22: POC Glucose 128 H Micro: Microbiology 04/16/22 18:34 Blood Culture (Wb) - Left Wrist Blood Culture - Preliminary 04/13/22 07:30 Blood Culture (Wb) - Anticubital Left Blood Culture - Final Meth. resistant Staph. aureus 04/13/22 07:20 Blood Culture (Wb) - Pic Blood Culture - Final Meth. resistant Staph. aureus 04/09/22 20:51 Wound - Left Foot Gram Stain - Final 04/09/22 20:51 Wound - Left Foot Wound Culture - Final Meth. resistant Staph. aureus Streptococcus mitis/ oralis Corynebacterium striatum 04/09/22 20:51 Wound - Left Foot Anaerobic Culture - Final Prevotella bivia Bacteroides pyogenes 04/11/22 12:30 Wound Abcess - Right Foot Gram Stain - Final 04/11/22 12:30 Wound Abcess - Right Foot Wound Culture - Final Meth. resistant Staph. aureus 04/11/22 12:30 Wound Abcess - Right Foot Anaerobic Culture - Final No anaerobic bacteria isolated. 04/09/22 18:40 Urine, Catheterized Urine Culture - Final Culture exhibits no growth. 04/09/22 17:12 Blood Culture (Wb) - Anticubital Right Blood Culture - Final Staphylococcus aureus 04/09/22 16:50 Blood Culture (Wb) - Anticubital Right Bacteria Detection (PCR) - Final Staphylococcus aureus mecA Resistance Marker 04/09/22 16:50 Blood Culture (Wb) - Anticubital Right Blood Culture - Final Meth. resistant Staph. aureus Rhythm Strip Rhythm Strip: Sinus Rhythm Rate: 60 Ectopy: None Physical Exam Narrative General: No apparent distress Neck: Supple, no JVD. Heart: Normal S1, S2. No rubs, murmurs or gallops. Lungs: Clear to auscultation anteriorly. No wheezes, rhonchi, rales noted. Abdominal: Normal bowel sounds, soft Extremities:No clubbing or cyanosis no edema : Indwelling Tirado catheter with clear urine in bag Assessment & Plan Assessment/Plan (1) FELI (acute kidney injury): PLAN: -FELI secondary to ischemic ATN related to septic shock. Patient was oliguric but is now non-oliguric -Serum creatinine 3.3 mg/dL on admission, peaked 4.08 mg/dL on 04/13 and is slowly improving daily with current creatinine 3.07 mg/dL today. - Her appetite is still poor. Continue IV fluid for now. The patient does not appear to be volume overloaded. -At this time there is no significant uremic symptoms, hyperkalemia, volume overload, or severe acidosis therefore there is no immediate need for kidney replacement therapy -Current medications are reviewed. They are all appropriately dosed for her renal function. -Recheck renal function, volume status, acid-base status and electrolytes tomorrow. (2) Chronic kidney disease, stage 4 (severe): PLAN: Baseline serum creatinine is around 2.00 to 2.40 mg/dL. The patient has underlying diabetic kidney disease. (3) Metabolic acidosis: PLAN: Suspect her initial acidosis from FELI/CKD along with poor tissue pe rfusion, patient also received IV NS for volume expansion which can also contribute to non-anion gap metabolic acidosis. There was no ketones on urine dipstick on 04/09/2022. She is now having diarrhea which can contribute to acidosis. Serum bicarbonate level is a bit worse today at 14 mmol/L. Will continue sodium bicarbonate orally. We will increase the dose. If serum bicarbonate level fails to improve in the next 24 hours, we may change IV fluid to isotonic sodium bicarbonate infusion. (4) Septic shock: PLAN: Clinically improving. She is no longer on IV vasopressor. Hemodynamically stable today. Septic shock was secondary to cellulitis, diabetic foot infection +MRSA and possibly osteomyelitis. Antimicrobial coverage as per hospitalist and ID.
[2022-04-18 18:26] LABS: Bedside Glucose 61 mg/dL (74-106)
[2022-04-18 18:26] LABS: Bedside Glucose 78 mg/dL (74-106)
[2022-04-18 18:26] LABS: Bedside Glucose 59 mg/dL (74-106)
[2022-04-18] MEDS: Sodium Bicarbonate 650 MG Tablet 1300 MG PO (21:27)
[2022-04-18] MEDS: Atorvastatin Calcium 80 MG Tablet PO (21:27)
[2022-04-18] MEDS: Paroxetine 20 MG Tablet PO (21:29)
[2022-04-18 22:00] LABS: Bedside Glucose 158 mg/dL (74-106)
[2022-04-19] MEDS: Acetaminophen 325 MG Tablet 650 MG PO ×4 (00:05→23:46)
[2022-04-19] MEDS: Haloperidol Lactate 5 MG/ML Vial 2 MG IM (01:34)
[2022-04-19] MEDS: Lactated Ringers 1,000 ML 100 ML IV (02:35)
[2022-04-19 02:42] VITALS: BP 160/98; PULSE 105; RESP 18; TEMP 36.5; O2SAT 97
[2022-04-19] MEDS: Sodium Bicarbonate 650 MG Tablet 1300 MG PO ×3 (05:08→20:41)
[2022-04-19 06:22] LABS: Absolute Lymphocyte Count 1.13 X10^3/uL (0.83-4.51); Absolute Neutrophil Count 15.6 X10^3/uL (2.0-7.7); Basophil# 0.05 X10^3/uL; Basophil% 0.3 % (0-1); Eosinophil# 0.29 X10^3/uL; Eosinophils% 1.6 % (0-5); Hemoglobin 8.2 g/dL (12.0-15.0); Lymphocyte # 1.13 X10^3/ul (0.83-4.51); Lymphocyte % 6.1 % (19-41); Mean Corp Hgb Conc 31.5 g/dL (32-36); Mean Corpuscular Volume 85.5 fL (81-99); Monocyte# 0.74 X10^3/uL; NRBC Flagged by Analyzer 0.1 % (0-5); Neutrophil # 15.58 X10^3/uL (2.7-7.7); Neutrophil % 84.6 % (47-70); Platelet Count 250 K/mm3 (150-450); RBC Distribution Width CV 19.1 % (11.6-14.6); Red Blood Count 3.04 M/mm3 (4.2-5.4); White Blood Count 18.4 K/mm3 (4.4-11.0)
[2022-04-19 06:54] LABS: Anion Gap 10 (5-15); BUN 56 mg/dL (7-18); BUN/Creat Ratio 20.2 RATIO (10-20); Calcium,Total 8.8 mg/dL (8.5-10.1); Chloride 116 mmol/L (98-107); Creatinine, Serum 2.77 mg/dL (0.55-1.02); EST Glomerular Filtration Rate 19 mL/min (>60); Est Glom Filt Rate - Afr Amer 23 mL/min (>60); Estimated Creatinine Clearance 21.23 ml/min; Glucose 167 mg/dL (74-106); Potassium 3.7 mmol/L (3.5-5.1); Sodium Level 145 mmol/L (136-145); Vancomycin, Random Level 19.9 ug/mL (0.0-15.0)
--- NOTE | 2022-04-19 07:20 | PCM.RX.CS ---
Consult Pharmacy has been consulted to manage selected antiobiotic: Vancomycin Type of Consult: Follow-up Suspected Infection: Osteomyelitis Labs: Sodium 145 mmol/L (136-145) 04/19/22 06:03 Potassium 3.7 mmol/L (3.5-5.1) 04/19/22 06:03 Chloride 116 mmol/L (98-107) H 04/19/22 06:03 Carbon Dioxide 19.0 mmol/L (21.0-32.0) L 04/19/22 06:03 Anion Gap 10 (5-15) 04/19/22 06:03 BUN 56 mg/dL (7-18) H 04/19/22 06:03 Creatinine 2.77 mg/dL (0.55-1.02) H 04/19/22 06:03 Est GFR (MDRD) Af Amer 23 mL/min (>60) L 04/19/22 06:03 Est GFR (MDRD) Non-Af 19 mL/min (>60) L 04/19/22 06:03 BUN/Creatinine Ratio 20.2 RATIO (10-20) H 04/19/22 06:03 Glucose 167 mg/dL (74-106) H 04/19/22 06:03 Vancomycin Trough 29.2 ug/mL (5.0-15.0) H 04/11/22 21:30 Random Vancomycin 19.9 ug/mL (0.0-15.0) H 04/19/22 06:03 Microbiology: Microbiology 04/16/22 18:28 Blood Culture (Wb) - Anticubital Left Blood Culture - Preliminary 04/16/22 18:34 Blood Culture (Wb) - Left Wrist Blood Culture - Preliminary 04/13/22 07:30 Blood Culture (Wb) - Anticubital Left Blood Culture - Final Meth. resistant Staph. aureus 04/13/22 07:20 Blood Culture (Wb) - Pic Blood Culture - Final Meth. resistant Staph. aureus 04/09/22 20:51 Wound - Left Foot Gram Stain - Final 04/09/22 20:51 Wound - Left Foot Wound Culture - Final Meth. resistant Staph. aureus Streptococcus mitis/ oralis Corynebacterium striatum 04/09/22 20:51 Wound - Left Foot Anaerobic Culture - Final Prevotella bivia Bacteroides pyogenes 04/11/22 12:30 Wound Abcess - Right Foot Gram Stain - Final 04/11/22 12:30 Wound Abcess - Right Foot Wound Culture - Final Meth. resistant Staph. aureus 04/11/22 12:30 Wound Abcess - Right Foot Anaerobic Culture - Final No anaerobic bacteria isolated. 04/09/22 18:40 Urine, Catheterized Urine Culture - Final Culture exhibits no growth. 04/09/22 17:12 Blood Culture (Wb) - Anticubital Right Blood Culture - Final Staphylococcus aureus 04/09/22 16:50 Blood Culture (Wb) - Anticubital Right Bacteria Detection (PCR) - Final Staphylococcus aureus mecA Resistance Marker 04/09/22 16:50 Blood Culture (Wb) - Anticubital Right Blood Culture - Final Meth. resistant Staph. aureus Goal Trough: 15-20 mcg/mL Pharmacy Plan for Drug Dosing: VANCOMYCIN LEVEL RECEIVED Current Vancomycin Dose: on hold due to renal function (last dose was 1250mg on 04/16/22) Number of Doses Received: Vancomycin Level: 19.9 random level Hours Since Last Dose: 68 hours Renal Function: SrCr 2.77 Renal Function Trend: SrCr is slowly improving. SrCr was 3.36, 3.07 on 04/17, 04/18 Lab/Micro: Vancomycin Plan/Comments: recommend giving a x1 dose of Vancomycin 500mg and checking a random level 04/20/22 at 0600 Pending Level: 04/20/22 at 0600 Pharmacy Service will continue to monitor and adjust dosing as required. Follow-Up Labs: Trough Vancomycin - 04/20/22 @ 0600 (random)
--- NOTE | 2022-04-19 07:31 | PN.HOSP_ITS ---
Subjective Subjective Patient is a 56-year-old lady with complicated past medical history including acute on chronic kidney disease stage IV, diabetes mellitus type 2, history of bilateral lower extremity diabetic foot ulcers who presented with septic shock secondary to diabetic foot ulcers with osteomyelitis involving the right foot (c uboid and base of fourth and fifth toes). Patient had MRSA bacteremia Objective Data Objective Data Vital Signs: Vital Signs Temp Pulse Resp BP Pulse Ox O2 Del Method 97.7 F L 105 H 18 160/98 H 97 Room Air 04/19/22 02:42 04/19/22 02:42 04/19/22 02:42 04/19/22 02:42 04/19/22 02:42 04/19/22 02:42 Oxygen Delivery Method Room Air Weight: 88.3 kg Body Mass Index (BMI) 29.0 Intake & Output: Intake and Output for Last 24 Hours 04/17/22 04/18/22 04/19/22 23:59 23:59 23:59 Intake Total 1741.67 / 1741.67 1963.33 / 1963.33 1313.33 / 1313.33 Output Total 1400 / 1700 775 / 1225 600 / 600 Balance 341.67 / 41.67 1188.33 / 738.33 713.33 / 713.33 Medical Nutrition Assessment Dietitian: Malnutrition Criteria Met Start: 04/12/22 15:13 Freq: Status: Active Protocol: Document 04/16/22 09:36 AG (Rec: 04/16/22 09:37 AG [id number]) Nutrition Malnutrition Evidence of Malnutrition Exists Yes Malnutrition (severe): Acute Illness/Injury Evidenced By Suboptimal Energy Intake ( Severe),Weight Loss (Severe) Intake Problem Increased Nutrient Needs (specify) Etiology increased protein needs related to wounds Signs/Symptoms as evidenced by multiple wounds, DM foot infection to L bottom foot Status Active Problem Inadequate Oral Intake Etiology related to altered mental status Signs/Symptoms as evidenced by estimated PO intake meeting <50% of estimated energy needs x 6 days Status Active Problem Clinical Problem Acute Disease or Injury Related Malnutrition Etiology severe, acute malnutrition related to inadequate energy intake d/t altered mental status Signs/Symptoms as evidenced by unintentional 1.8kg/2% wt loss <1 week; estimated PO intake meeting < 50% of estimated energy needs x 6 days Status Active Problem Recommendation Dietitian Recommendations/Changes recommend regular, no added salt diet given acute malnutrition (texture/ consistency modifications per FOREIGN BANKNOTE TELLER) when PO diet appropriate; resume Ensure Clear 120mL 4x/ day as pt accepting when diet resumed (note Ensure Clear cannot be thickened); Ted BID for wound healing when diet resumed. Lab / Micro Data Result Diagrams: 04/19/22 06:03 04/19/22 06:03 Labs: Laboratory Results - last 24 hr 04/18/22 07:29: POC Glucose 159 H 04/18/22 11:22: POC Glucose 128 H 04/18/22 17:14: POC Glucose 59 L 04/18/22 17:33: POC Glucose 61 L 04/18/22 17:49: POC Glucose 78 04/18/22 21:40: POC Glucose 158 H 04/19/22 06:03: Random Vancomycin 19.9 H 04/19/22 06:03: WBC 18.4 H, RBC 3.04 L, Hgb 8.2 L, Hct 26.0 L, MCV 85.5, MCH 27.0, MCHC 31.5 L, RDW Std Deviation 58.0 H, RDW Coeff of Fior 19.1 H, Plt Count 250, MPV 10.0, Immature Gran % (Auto) 3.400 H, Neut % (Auto) 84.6 H, Lymph % (Auto) 6.1 L, [place] % (Auto) 4.0, Eos % (Auto) 1.6, Baso % (Auto) 0.3, Absolute Neuts (auto) 15.6 H, Absolute Lymphs (auto) 1.13, Nucleated RBC % 0.1 04/19/22 06:03: Sodium 145, Potassium 3.7, Chloride 116 H, Carbon Dioxide 19.0 L , Anion Gap 10, BUN 56 H, Creatinine 2.77 H, Estim Creat Clear Calc 21.23, Est GFR (MDRD) Af Amer 23 L, Est GFR (MDRD) Non-Af 19 L, BUN/Creatinine Ratio 20.2 H , Glucose 167 H, Calcium 8.8 Micro: Microbiology 04/16/22 18:28 Blood Culture (Wb) - Anticubital Left Blood Culture - Preliminary 04/16/22 18:34 Blood Culture (Wb) - Left Wrist Blood Culture - Preliminary 04/13/22 07:30 Blood Culture (Wb) - Anticubital Left Blood Culture - Final Meth. resistant Staph. aureus 04/13/22 07:20 Blood Culture (Wb) - Pic Blood Culture - Final Meth. resistant Staph. aureus 04/09/22 20:51 Wound - Left Foot Gram Stain - Final 04/09/22 20:51 Wound - Left Foot Wound Culture - Final Meth. resistant Staph. aureus Streptococcus mitis/ oralis Corynebacterium striatum 04/09/22 20:51 Wound - Left Foot Anaerobic Culture - Final Prevotella bivia Bacteroides pyogenes 04/11/22 12:30 Wound Abcess - Right Foot Gram Stain - Final 04/11/22 12:30 Wound Abcess - Right Foot Wound Culture - Final Meth. resistant Staph. aureus 04/11/22 12:30 Wound Abcess - Right Foot Anaerobic Culture - Final No anaerobic bacteria isolated. 04/09/22 18:40 Urine, Catheterized Urine Culture - Final Culture exhibits no growth. 04/09/22 17:12 Blood Culture (Wb) - Anticubital Right Blood Culture - Final Staphylococcus aureus 04/09/22 16:50 Blood Culture (Wb) - Anticubital Right Bacteria Detection (PCR) - Final Staphylococcus aureus mecA Resistance Marker 04/09/22 16:50 Blood Culture (Wb) - Anticubital Right Blood Culture - Final Meth. resistant Staph. aureus Rhythm Strip Rhythm Strip: Sinus Rhythm Rate: 60 Ectopy: None Physical Exam Narrative GENERAL: Tearful HEENT: Atraumatic; EYES; Anicteric, Normal Conjunctiva NECK; supple, normal thyroid, RESPIRATORY: Diminished to auscultation CARDIOVASCULAR:? Regular S1 S2, GI:? soft, normoactive bowel sounds, : No Renal angle tenderness; EXTREMITIES: Both lower extremities in surgical dressing MUSCULOSKELETAL:? no muscle wasting NEURO:? Awake;? no lateralizing signs. SKIN:? No Rash PSYCH; depressed Assessment & Plan Assessment/Plan (1) Cellulitis of both lower extremities: (2) Chronic kidney disease, stage 4 (severe): PLAN: Plan Patient is a 56-year-old lady with complicated past medical history including acute on chronic kidney disease stage IV, diabetes mellitus type 2, history of bilateral lower extremity diabetic foot ulcers who presented with septic shock secondary to diabetic foot ulcers with osteomyelitis involving the right foot (cuboid and base of fourth and fifth toes). Patient had MRSA bacteremia 1.? Cellulitis and abscess involving an infected right foot wound, Osteomyelitis involving base of 4th and 5th toesl? right foot secondary to MRSA ? Patient had MRSA bacteremia. Managed with Vanco and cefepime. Consultation was placed to podiatry patient underwent debridement on 04/11/2022 2.? Staph aureus bacteremia ?E secondary to above 3.? Acute kidney injury ?Superimposed on chronic kidney disease stage IV.? Monitoring with daily BMPs nephrology following 4.? Anemia - Secondary to chronic disorder monitoring H&H and transfuse if patient becomes symptomatic or hemoglobin falls below? 7 5.? Diabetes mellitus type II ?With complications including Charcot foot as well as diabetic foot ulcers.? Patient is onlong acting insulin, Accu-Cheks a.c. and at bedtime and covered with sliding scale insulin 6.? Depression with anxiety ?Patient is on SSRI 7.? Dyslipidemia -Patient is on statin therapy, continued at home dose 8.? Acute metabolic encephalopathy ? Multifactorial including underlying infection as well as pain meds possible SSRI withdrawal 9.? Chronic back pain ?Patient is managed with outpatient epidural steroid injection 10. DVT prophylaxis - Heparin SC 11.? Physical deconditioning - Requested for PT OT eval and community mental health social worker to assist with discharge planning Charges/Coding Visit Charges Inpatient E&M: 14241 Subs Hosp L2
[2022-04-19] MEDS: Vancomycin IV 500 MG/100 ML BAG 100 MG IV (08:04)
[2022-04-19] MEDS: Insulin Lispro 100 UNIT/ML INSULN.PEN SC ×4 (08:47→21:35)
[2022-04-19] MEDS: Insulin Lispro 100 UNIT/ML INSULN.PEN 10 UNIT SC ×3 (08:47→17:00)
--- NOTE | 2022-04-19 08:48 | PN.RENAL_ITS ---
Subjective Subjective Following for FELI on CKD Patient is alert and oriented, sitting in chair and eating breakfast. Denies any complaints. No overnight events. Objective Data Objective Data Vital Signs: Vital Signs Temp Pulse Resp BP Pulse Ox O2 Del Method 97.7 F L 105 H 18 160/98 H 97 Room Air 04/19/22 02:42 04/19/22 02:42 04/19/22 02:42 04/19/22 02:42 04/19/22 02:42 04/19/22 02:42 Oxygen Delivery Method Room Air Weight: 88.3 kg Body Mass Index (BMI) 29.0 Intake & Output: Intake and Output for Last 24 Hours 04/17/22 04/18/22 04/19/22 23:59 23:59 23:59 Intake Total 1741.67 / 1741.67 1963.33 / 1963.33 1865.00 / 1865.00 Output Total 1400 / 1700 775 / 1225 600 / 600 Balance 341.67 / 41.67 1188.33 / 738.33 1265.00 / 1265.00 Medical Nutrition Assessment Dietitian: Malnutrition Criteria Met Start: 04/12/22 15:13 Freq: Status: Active Protocol: Document 04/16/22 09:36 AG (Rec: 04/16/22 09:37 AG [id number]) Nutrition Malnutrition Evidence of Malnutrition Exists Yes Malnutrition (severe): Acute Illness/Injury Evidenced By Suboptimal Energy Intake ( Severe),Weight Loss (Severe) Intake Problem Increased Nutrient Needs (specify) Etiology increased protein needs related to wounds Signs/Symptoms as evidenced by multiple wounds, DM foot infection to L bottom foot Status Active Problem Inadequate Oral Intake Etiology related to altered mental status Signs/Symptoms as evidenced by estimated PO intake meeting <50% of estimated energy needs x 6 days Status Active Problem Clinical Problem Acute Disease or Injury Related Malnutrition Etiology severe, acute malnutrition related to inadequate energy intake d/t altered mental status Signs/Symptoms as evidenced by unintentional 1.8kg/2% wt loss <1 week; estimated PO intake meeting < 50% of estimated energy needs x 6 days Status Active Problem Recommendation Dietitian Recommendations/Changes recommend regular, no added salt diet given acute malnutrition (texture/ consistency modifications per TRAMPOLINE TEAM COACH) when PO diet appropriate; resume Ensure Clear 120mL 4x/ day as pt accepting when diet resumed (note Ensure Clear cannot be thickened); Ted BID for wound healing when diet resumed. Lab / Micro Data Result Diagrams: 04/19/22 06:03 04/19/22 06:03 Labs: Laboratory Results - last 24 hr 04/18/22 11:22: POC Glucose 128 H 04/18/22 17:14: POC Glucose 59 L 04/18/22 17:33: POC Glucose 61 L 04/18/22 17:49: POC Glucose 78 04/18/22 21:40: POC Glucose 158 H 04/19/22 06:03: Random Vancomycin 19.9 H 04/19/22 06:03: WBC 18.4 H, RBC 3.04 L, Hgb 8.2 L, Hct 26.0 L, MCV 85.5, MCH 27.0, MCHC 31.5 L, RDW Std Deviation 58.0 H, RDW Coeff of Fior 19.1 H, Plt Count 250, MPV 10.0, Immature Gran % (Auto) 3.400 H, Neut % (Auto) 84.6 H, Lymph % (Auto) 6.1 L, [place] % (Auto) 4.0, Eos % (Auto) 1.6, Baso % (Auto) 0.3, Absolute Neuts (auto) 15.6 H, Absolute Lymphs (auto) 1.13, Nucleated RBC % 0.1 04/19/22 06:03: Sodium 145, Potassium 3.7, Chloride 116 H, Carbon Dioxide 19.0 L , Anion Gap 10, BUN 56 H, Creatinine 2.77 H, Estim Creat Clear Calc 21.23, Est GFR (MDRD) Af Amer 23 L, Est GFR (MDRD) Non-Af 19 L, BUN/Creatinine Ratio 20.2 H , Glucose 167 H, Calcium 8.8 Micro: Microbiology 04/16/22 18:34 Blood Culture (Wb) - Left Wrist Blood Culture - Preliminary Staphylococcus aureus 04/16/22 18:28 Blood Culture (Wb) - Anticubital Left Blood Culture - Preliminary 04/13/22 07:30 Blood Culture (Wb) - Anticubital Left Blood Culture - Final Meth. resistant Staph. aureus 04/13/22 07:20 Blood Culture (Wb) - Pic Blood Culture - Final Meth. resistant Staph. aureus 04/09/22 20:51 Wound - Left Foot Gram Stain - Final 04/09/22 20:51 Wound - Left Foot Wound Culture - Final Meth. resistant Staph. aureus Streptococcus mitis/ oralis Corynebacterium striatum 04/09/22 20:51 Wound - Left Foot Anaerobic Culture - Final Prevotella bivia Bacteroides pyogenes 04/11/22 12:30 Wound Abcess - Right Foot Gram Stain - Final 04/11/22 12:30 Wound Abcess - Right Foot Wound Culture - Final Meth. resistant Staph. aureus 04/11/22 12:30 Wound Abcess - Right Foot Anaerobic Culture - Final No anaerobic bacteria isolated. 04/09/22 18:40 Urine, Catheterized Urine Culture - Final Culture exhibits no growth. 04/09/22 17:12 Blood Culture (Wb) - Anticubital Right Blood Culture - Final Staphylococcus aureus 04/09/22 16:50 Blood Culture (Wb) - Anticubital Right Bacteria Detection (PCR) - Final Staphylococcus aureus mecA Resistance Marker 04/09/22 16:50 Blood Culture (Wb) - Anticubital Right Blood Culture - Final Meth. resistant Staph. aureus Rhythm Strip Rhythm Strip: Sinus Rhythm Rate: 60 Ectopy: None Physical Exam Narrative General: No apparent distress Neck: Supple Heart: Normal S1, S2. No rubs, murmurs or gallops. RRR Lungs: Clear to auscultation anteriorly. No wheezes, rhonchi, rales noted. Abdominal: Normal bowel sounds, soft Extremities: No edema : Indwelling Tirado catheter with clear urine in bag Assessment & Plan Assessment/Plan (1) FELI (acute kidney injury): PLAN: -FELI secondary to ischemic ATN related to septic shock. Patient was oliguric but is now non-oliguric -Serum creatinine 3.3 mg/dL on admission, peaked 4.08 mg/dL on 04/13 and is slowly improving daily with current creatinine 2.77mg/dL today. -Appetite had been very poor, patient was NPO. She had been on IV fluids due to poor appetite/NPO. Appetite is now improving. We will decrease IV fluid rate and likely stop IV fluids altogether by tomorrow. The patient does not appear to be volume overloaded. -At this time there is no significant uremic symptoms, hyperkalemia, volume ov erload, or severe acidosis therefore there is no immediate need for kidney replacement therapy -Current medications are reviewed. They are all appropriately dosed for her renal function. -BPs elevated, decrease IVF rate and increase coreg 12.5mg bid (home dose 12.5mg bid). -Recheck renal function, volume status, acid-base status and electrolytes tomorrow. (2) Chronic kidney disease, stage 4 (severe): PLAN: Baseline serum creatinine is around 2.00 to 2.40 mg/dL. The patient has underlying diabetic kidney disease. (3) Metabolic acidosis: PLAN: Suspect her initial acidosis from FELI/CKD along with poor tissue perfusion, patient also received IV NS for volume expansion which can also contribute to non-anion gap metabolic acidosis. There was no ketones on urine dipstick on 04/09/2022. She is now having diarrhea which can contribute to acidosis. Serum bicarbonate level has improved, currently at 19 mmol/L, continue sodium bicarbonate orally. Patient and staff report improvement in diarrhea (4) Septic shock: PLAN: Clinically improving. She is no longer on IV vasopressor. Hemodynamically stable today. Septic shock was secondary to cellulitis, diabetic foot infection +MRSA and possibly osteomyelitis. Antimicrobial coverage as per hospitalist and ID. Discussed with Dr. Yates
[2022-04-19] MEDS: Clopidogrel Bisulfate 75 MG Tablet PO (08:56)
[2022-04-19] MEDS: Carvedilol 6.25 MG Tablet PO (08:56)
[2022-04-19 09:00] VITALS: BP 186/111; PULSE 97; RESP 18; TEMP 36.9; O2SAT 98
[2022-04-19 09:15] LABS: Bedside Glucose 191 mg/dL (74-106)
--- NOTE | 2022-04-19 09:38 | CASEMGMT ---
Addendum entered by Verito Abreu 04/19/22 11:42: Social Work SW received email from [facility] stating they are unable to accept pt. Phone call placed to pt dgt Trisha and informed. Dgts next SNF choices are [facility]. Yaneli, discharge planning assistance updated and will send referral. Plan: [facility], pending acceptance and [facility] Original Note: Social Work SW met with pt in room. Pt is sitting up in chair, able to talk with SW and state that she is in [facility]. Pt is not able to state the correct day. SW spoke with pt regarding discharge plan and need for SNF. SW also explained that SW has been speaking to her daughter about SNF placement, and that [facility] is unable to accept and referral has been sent to [facility] per dgts request. Pt is agreeable to referral to [facility] and states whatever my daughter thinks is best. Phone call placed to Malissa at [facility]. She did not receive the referral sent on Tuesday. SW resent referral and also sent weekend updates. SW will await determination. Plan: [facility], pending acceptance and [facility]
[2022-04-19 10:00] VITALS: PULSE 97
[2022-04-19] MEDS: Insulin Glargine-YFGN 100 UNIT/ML Pen 30 UNIT SC (10:35)
--- NOTE | 2022-04-19 11:21 | WOUNDNOTE ---
wound photo: left plantar foot
--- NOTE | 2022-04-19 11:21 | WOUNDNOTE ---
wound photo: right dorsolateral foot
--- NOTE | 2022-04-19 11:44 | CASEMGMT ---
Discharge Controller Mechanic Yaneli Navarro Dam Tender called Corinne at [facility]. [facility] available. Referral has been faxed. Will follow up. Yaneli Hammond Discharge Controller Mechanic
[2022-04-19 12:00] LABS: Bedside Glucose 202 mg/dL (74-106)
--- NOTE | 2022-04-19 13:21 | PCM.PN.ID ---
Physical Exam Narrative Feeling ok, feet/legs/back are sore. No fever. Const alert and no apparent distress Orientation / Consciousness: lethargic Resp normal air movement and clear to auscultation bilaterally Cardio regular rate and regular rhythm GI soft to palpation, non-tender and non-distended Skin Skin Narrative: feet wrapped, reviewed photos. No focal spine tenderness. R middle finger with faint splinter hemorrhage. ID ID: Route of nutrition/ use of supplements: [] Nutritional Intake: [] IV Site: [] Tirado Catheter: [] Assessment & Plan Assessment/Plan (1) Chronic kidney disease, stage 4 (severe): (2) FELI (acute kidney injury): (3) Bacteremia: PLAN: MRSA bacteremia due to R foot osteo. Had 04/11/22 bedside I&D of R foot. Wound cx with mrsa, corynebacteria, strep, and anaerobes. Bcx neg since 04/18 so far. TTE at start of stay with no veg. Worsening wbc. On vanc. Will order MRI R foot, repeat bcx x1, and add meropenem to vanc for anaerobic/GNR coverage. Will follow, d/w family caseworker (4) Osteomyelitis of metatarsal:
--- NOTE | 2022-04-19 13:50 | CASEMGMT ---
Discharge Assistant Buyer Called Corin[facility] at [facility]. Left a voicemail regarding referral. Will follow up. Yaneli Hammond Discharge Assistant Buyer
--- NOTE | 2022-04-19 14:15 | NURSING ---
Patient off unit to MRI
--- NOTE | 2022-04-19 14:43 | MRI_ITS ---
STUDY: MAGNETIC RESONANCE IMAGING OF THE RIGHT MIDFOOT OF 1456 HOURS ON 04/19/2022 REASON FOR EXAM: 56-year-old female with infection of the mid foot. Evaluate for osteomyelitis. TECHNIQUE: Standardized fat and water weighted pulse sequences were obtained in all 3 orthogonal planes. 7 sequences were obtained. COMPARISON: None. FINDINGS: Moderate motion artifact is noted. There appears to be osteomyelitis involving the anterior medial aspect of the tarsonavicular, the first and second cuneiform tarsal bones, the cuboid tarsal bone, and the base of the second metatarsal, and the proximal third, fourth and fifth metatarsals. Inflammatory changes are noted in the adjacent lateral subcutaneous tissues. There is no identification of fractures or dislocations. There is too much motion artifact identified inflammatory involvement of the adjacent tendons. MRI/Lower Ext/No Jt/w/o IMPRESSION: 1. Osteomyelitis involving the anterior medial aspect of the tarsal navicular, first and second cuneiform tarsal bones, and the cuboid tarsal bone, the base of the second metatarsal, in the proximal third, fourth, and fifth metatarsals. 2. Adjacent inflammatory soft tissue abnormalities. 3. Moderate motion artifact which resulted in the inability to adequately cite tendinous involvement. 4. No identification of fractures or dislocations. Electronically Signed: Eddie Vo MD at 0:41 EDT ,
[2022-04-19] MEDS: 0.9% Saline Lock 10 ML Syringe IV (15:40)
[2022-04-19] MEDS: Menthol/Lanolin/Calamine/Znox 113 GM Tube 1 APPLIC TOPICAL ×2 (15:41→20:39)
[2022-04-19] MEDS: Juven (unflavored) Packet 1 PACKET PO (17:00)
[2022-04-19 17:30] LABS: Bedside Glucose 158 mg/dL (74-106)
[2022-04-19 18:08] VITALS: BP 166/111; PULSE 95; RESP 16; TEMP 36.8; O2SAT 97
[2022-04-19] MEDS: Lactated Ringers 1,000 ML 50 ML IV (19:38)
[2022-04-19 19:45] VITALS: BP 156/96; PULSE 97; RESP 17; TEMP 36; O2SAT 97
[2022-04-19] MEDS: HYDROmorphone 0.5 MG/0.5 ML SYRINGE IV (19:51)
[2022-04-19] MEDS: Carvedilol 12.5 MG Tablet PO (20:40)
[2022-04-19] MEDS: Atorvastatin Calcium 80 MG Tablet PO (20:42)
[2022-04-19] MEDS: Paroxetine 20 MG Tablet PO (20:46)
[2022-04-19 22:00] LABS: Bedside Glucose 155 mg/dL (74-106)
[2022-04-19 23:49] VITALS: BP 133/77; PULSE 95; RESP 17; TEMP 36.6; O2SAT 96
[2022-04-20] VITALS (7 sets, daily range): BP systolic 138–181; BP diastolic 75–105; PULSE 86–110; RESP 18–20; TEMP 35.6–37.1; O2SAT 95–99
--- NOTE | 2022-04-20 | MRI_ITS ---
STUDY: MRI LUMBAR SPINE WITHOUT CONTRAST REASON FOR EXAM: Female, 56 years old. back pain, LLE weakness, bacteremia. TECHNIQUE: Standardized fat and water weighted pulse sequences were obtained in the sagittal and axial planes. COMPARISON: 01/06/2022 FINDINGS: T12-L1: Normal endplates. Normal disc height, hydration and morphology. Normal bilateral facet joints. Normal central canal and bilateral lateral recesses. Normal bilateral intervertebral neural foramina. Normal lumbar lordosis. There is no substantial scoliosis. Normal conus medullaris that terminates at the 1. L1-2: Normal endplates. Normal disc height, hydration and morphology. Normal bilateral facet joints. Normal central canal and bilateral lateral recesses. Normal bilateral intervertebral neural foramina. L2-3: Disc desiccation but no disc protrusion, spinal stenosis, or neural foraminal stenosis. L3-4: Moderate bilateral facet hypertrophy and ligament flavum hypertrophy. No disc protrusion, spinal stenosis, or neural foraminal stenosis. L4-5: Severe bilateral facet hypertrophy and ligament flavum hypertrophy. No change in the moderate broad disc protrusion which produces moderate spinal stenosis with moderate bilateral lateral recess stenosis with abutment of the L5 nerve root laterally and moderate bilateral neural foraminal stenosis with abutment of the L4 nerve roots bilaterally. L5-S1: Normal endplates. Normal disc height, hydration and morphology. Normal bilateral facet joints. Normal central canal and bilateral lateral recesses. Normal bilateral intervertebral neural foramina. Normal visualized sacral ala. Severe friction related edema in the posterior subcutaneous fat. MRI/Spine Lumbar (Routine) IMPRESSION: No change from 01/06/2022. Electronically Signed: Scot Penny MD at 17:21 EDT ,
[2022-04-20] MEDS: Menthol/Lanolin/Calamine/Znox 113 GM Tube 1 APPLIC TOPICAL ×3 (05:29→22:34)
[2022-04-20] MEDS: Dextrose 50%-Water 25 GM/50 ML DISP.SYRIN IV (05:58)
[2022-04-20] MEDS: hydrALAZINE 20 MG/ML Vial 10 MG IV (06:05)
[2022-04-20] MEDS: 0.9% Saline Lock 10 ML Syringe IV ×6 (06:07→23:32)
[2022-04-20 06:41] LABS: Absolute Lymphocyte Count 0.98 X10^3/uL (0.83-4.51); Absolute Neutrophil Count 15.1 X10^3/uL (2.0-7.7); Basophil# 0.05 X10^3/uL; Basophil% 0.3 % (0-1); Eosinophils% 1.7 % (0-5); Hematocrit 28.2 % (37-47); Hemoglobin 8.7 g/dL (12.0-15.0); Lymphocyte # 0.98 X10^3/ul (0.83-4.51); Lymphocyte % 5.5 % (19-41); Mean Corp Hgb Conc 30.9 g/dL (32-36); Mean Corpuscular Hgb 27.3 pg (27.0-32.0); Mean Corpuscular Volume 88.4 fL (81-99); Mean Platelet Vol. 10.9 fl (6.2-12.0); Monocyte# 0.68 X10^3/uL; Monocyte% 3.8 % (0-10); NRBC Flagged by Analyzer 0 % (0-5); Neutrophil # 15.12 X10^3/uL (2.7-7.7); Neutrophil % 85.6 % (47-70); Platelet Count 254 K/mm3 (150-450); RBC Distribution Width CV 19.7 % (11.6-14.6); RBC Distribution Width SD 62.3 fl (35.1-43.9); Red Blood Count 3.19 M/mm3 (4.2-5.4); White Blood Count 17.7 K/mm3 (4.4-11.0)
[2022-04-20 07:01] LABS: Bedside Glucose 154 mg/dL (74-106)
[2022-04-20 07:01] LABS: Bedside Glucose 24 mg/dL (74-106)
[2022-04-20 07:09] LABS: Anion Gap 9 (5-15); BUN 56 mg/dL (7-18); BUN/Creat Ratio 22.2 RATIO (10-20); Calcium,Total 8.5 mg/dL (8.5-10.1); Chloride 117 mmol/L (98-107); Creatinine, Serum 2.52 mg/dL (0.55-1.02); EST Glomerular Filtration Rate 21 mL/min (>60); Est Glom Filt Rate - Afr Amer 25 mL/min (>60); Estimated Creatinine Clearance 23.34 ml/min; Glucose 132 mg/dL (74-106); Magnesium 1.6 mg/dL (1.6-2.6); Potassium 3.5 mmol/L (3.5-5.1); Sodium Level 146 mmol/L (136-145)
[2022-04-20 07:21] LABS: Vancomycin, Random Level 19.8 ug/mL (0.0-15.0)
--- NOTE | 2022-04-20 07:21 | PN.HOSP_ITS ---
Subjective Subjective Patient still remains bacteremic. MRI ordered by ID did show 1. Osteomyelitis involving the anterior medial aspect of the tarsal navicular, first and second cuneiform tarsal bones, and the cuboid tarsal bone, the base of the second metatarsal, in the proximal third, fourth, and fifth metatarsals. 2.? Adjacent inflammatory soft tissue abnormalities. Objective Data Objective Data Vital Signs: Vital Signs Temp Pulse Resp BP Pulse Ox O2 Del Method 96.1 F L 101 H 18 176/105 H 95 Room Air 04/20/22 05:33 04/20/22 06:05 04/20/22 05:33 04/20/22 06:05 04/20/22 05:33 04/20/22 05:33 Oxygen Delivery Method Room Air Weight: 91.2 kg Body Mass Index (BMI) 29.0 Intake & Output: Intake and Output for Last 24 Hours 04/18/22 04/19/22 04/20/22 23:59 23:59 23:59 Intake Total 1963.33 / 1963.33 2745.83 / 2745.83 Output Total 775 / 1225 1250 / 1250 250 / 250 Balance 1188.33 / 738.33 1495.83 / 1495.83 -250 / -250 Medical Nutrition Assessment Dietitian: Malnutrition Criteria Met Start: 04/12/22 15:13 Freq: Status: Active Protocol: Document 04/16/22 09:36 AG (Rec: 04/16/22 09:37 [id number]) Nutrition Malnutrition Evidence of Malnutrition Exists Yes Malnutrition (severe): Acute Illness/Injury Evidenced By Suboptimal Energy Intake ( Severe),Weight Loss (Severe) Intake Problem Increased Nutrient Needs (specify) Etiology increased protein needs related to wounds Signs/Symptoms as evidenced by multiple wounds, DM foot infection to L bottom foot Status Active Problem Inadequate Oral Intake Etiology related to altered mental status Signs/Symptoms as evidenced by estimated PO intake meeting <50% of estimated energy needs x 6 days Status Active Problem Clinical Problem Acute Disease or Injury Related Malnutrition Etiology severe, acute malnutrition related to inadequate energy intake d/t altered mental status Signs/Symptoms as evidenced by unintentional 1.8kg/2% wt loss <1 week; estimated PO intake meeting < 50% of estimated energy needs x 6 days Status Active Problem Recommendation Dietitian Recommendations/Changes recommend regular, no added salt diet given acute malnutrition (texture/ consistency modifications per AGRICULTURAL ECONOMICS PROFESSOR) when PO diet appropriate; resume Ensure Clear 120mL 4x/ day as pt accepting when diet resumed (note Ensure Clear cannot be thickened); Ted BID for wound healing when diet resumed. Lab / Micro Data Result Diagrams: 04/20/22 06:20 04/20/22 06:20 Labs: Laboratory Results - last 24 hr 04/19/22 08:44: POC Glucose 191 H 04/19/22 11:20: POC Glucose 202 H 04/19/22 16:58: POC Glucose 158 H 04/19/22 21:31: POC Glucose 155 H 04/20/22 05:49: POC Glucose 24 L* 04/20/22 06:08: POC Glucose 154 H 04/20/22 06:20: Random Vancomycin 19.8 H 04/20/22 06:20: Sodium 146 H, Potassium 3.5, Chloride 117 H, Carbon Dioxide 20.0 L, Anion Gap 9, BUN 56 H, Creatinine 2.52 H, Estim Creat Clear Calc 23.34, Est G FR (MDRD) Af Amer 25 L, Est GFR (MDRD) Non-Af 21 L, BUN/Creatinine Ratio 22.2 H, Glucose 132 H, Calcium 8.5, Magnesium 1.6 04/20/22 06:20: WBC 17.7 H, RBC 3.19 L, Hgb 8.7 L, Hct 28.2 L, MCV 88.4, MCH 27.3, MCHC 30.9 L, RDW Std Deviation 62.3 H, RDW Coeff of Fior 19.7 H, Plt Count 254, MPV 10.9, Immature Gran % (Auto) 3.100 H, Neut % (Auto) 85.6 H, Lymph % (Auto) 5.5 L, [place] % (Auto) 3.8, Eos % (Auto) 1.7, Baso % (Auto) 0.3, Absolute Neuts (auto) 15.1 H, Absolute Lymphs (auto) 0.98, Nucleated RBC % 0 Micro: Microbiology 04/16/22 18:28 Blood Culture (Wb) - Anticubital Left Blood Culture - Preliminary 04/18/22 15:56 Blood Culture (Wb) - Venous Blood Culture - Preliminary 04/16/22 18:34 Blood Culture (Wb) - Left Wrist Blood Culture - Preliminary Staphylococcus aureus 04/13/22 07:30 Blood Culture (Wb) - Anticubital Left Blood Culture - Final Meth. resistant Staph. aureus 04/13/22 07:20 Blood Culture (Wb) - Pic Blood Culture - Final Meth. resistant Staph. aureus 04/09/22 20:51 Wound - Left Foot Gram Stain - Final 04/09/22 20:51 Wound - Left Foot Wound Culture - Final Meth. resistant Staph. aureus Streptococcus mitis/ oralis Corynebacterium striatum 04/09/22 20:51 Wound - Left Foot Anaerobic Culture - Final Prevotella bivia Bacteroides pyogenes 04/11/22 12:30 Wound Abcess - Right Foot Gram Stain - Final 04/11/22 12:30 Wound Abcess - Right Foot Wound Culture - Final Meth. resistant Staph. aureus 04/11/22 12:30 Wound Abcess - Right Foot Anaerobic Culture - Final No anaerobic bacteria isolated. 04/09/22 18:40 Urine, Catheterized Urine Culture - Final Culture exhibits no growth. 04/09/22 17:12 Blood Culture (Wb) - Anticubital Right Blood Culture - Final Staphylococcus aureus 04/09/22 16:50 Blood Culture (Wb) - Anticubital Right Bacteria Detection (PCR) - Final Staphylococcus aureus mecA Resistance Marker 04/09/22 16:50 Blood Culture (Wb) - Anticubital Right Blood Culture - Final Meth. resistant Staph. aureus Radiography Diagnostic Testing: Radiology Impression Lower Extremity MRI 04/19/22 14:43 IMPRESSION: 1. Osteomyelitis involving the anterior medial aspect of the tarsal navicular, first and second cuneiform tarsal bones, and the cuboid tarsal bone, the base of the second metatarsal, in the proximal third, fourth, and fifth metatarsals. 2. Adjacent inflammatory soft tissue abnormalities. 3. Moderate motion artifact which resulted in the inability to adequately cite tendinous involvement. 4. No identification of fractures or dislocations. Electronically Signed: Eddie Vo MD at 0:41 EDT , Rhythm Strip Rhythm Strip: Sinus Rhythm Rate: 60 Ectopy: None Physical Exam Narrative GENERAL: Tearful HEENT: Atraumatic; EYES; Anicteric, Normal Conjunctiva NECK; supple, normal thyroid, RESPIRATORY: Diminished to auscultation CARDIOVASCULAR:? Regular S1 S2, GI:? soft, normoactive bowel sounds, : No Renal angle tenderness; EXTREMITIES: Both lower extremities in surgical dressing MUSCULOSKELETAL:? no muscle wasting NEURO:? Awake;? no lateralizing signs. SKIN:? No Rash PSYCH; depressed Assessment & Plan Assessment/Plan (1) Cellulitis of both lower extremities: (2) Chronic kidney disease, stage 4 (severe): PLAN: Plan Patient is a 56-year-old lady with complicated past medical history including acute on chronic kidney disease stage IV, diabetes mellitus type 2, history of bilateral lower extremity diabetic foot ulcers who presented with septic shock secondary to diabetic foot ulcers with osteomyelitis involving the right foot (cuboid and base of fourth and fifth toes). Patient had MRSA bacteremia 1.? Cellulitis and abscess involving an infected right foot wound, Osteomyelitis involving base of 4th and 5th toesl? right foot secondary to MRSA ? Patient had MRSA bacteremia. Managed with Vanco and cefepime. Consultation was placed to podiatry patient underwent debridement on 04/11/2022 -04/20/2022; Patient still remains bacteremic. MRI ordered by ID did show 1. Osteomyelitis involving the anterior medial aspect of the tarsal navicular, first and second cuneiform tarsal bones, and the cuboid tarsal bone, the base of the second metatarsal, in the proximal third, fourth, and fifth metatarsals. 2.? Adjacent inflammatory soft tissue abnormalities. 2.? Staph aureus bacteremia ? secondary to above 3.? Acute kidney injury ?Superimposed on chronic kidney disease stage IV.? Monitoring with daily BMPs nephrology following 4.? Anemia - Secondary to chronic disorder monitoring H&H and transfuse if patient becomes symptomatic or hemoglobin falls below? 7 5.? Diabetes mellitus type II ?With complications including Charcot foot as well as diabetic foot ulcers.? Patient is onlong acting insulin, Accu-Cheks a.c. and at bedtime and covered with sliding scale insulin 6.? Depression with anxiety ?Patient is on SSRI 7.? Dyslipidemia -Patient is on statin therapy, continued at home dose 8.? Acute metabolic encephalopathy ? Multifactorial including underlying infection as well as pain meds possible SSRI withdrawal 9.? Chronic back pain ?Patient is managed with outpatient epidural steroid injection 10. DVT prophylaxis - Heparin SC 11.? Physical deconditioning - Requested for PT OT eval and manager social media to assist with discharge planning ? severe acute? malnutrition related to inadequate energy intake d/t altered mental status as evidenced by unintentional 1.8kg/2% wt loss <1 week; estimated PO intake meeting <50% of estimated energy needs x 6 days recommend regular, no added salt diet given acute malnutrition (texture/consistency modifications per AGRICULTURAL ECONOMICS PROFESSOR) when PO diet appropriate; resume Ensure Clear 120mL 4x/day as pt accepting when diet resumed (note Ensure Clear cannot be thickened); Ted BID for wound healing when diet resumed. Charges/Coding Visit Charges Inpatient E&M: 99922 Subs Hosp L2
--- NOTE | 2022-04-20 07:37 | PCM.RX.CS ---
Consult Pharmacy has been consulted to manage selected antiobiotic: Vancomycin Type of Consult: Follow-up Suspected Infection: Osteomyelitis, Bacteremia Prior Doses of Antibiotics Received/Current Regimen: received vanc 500mg IV x1 yesterday at 08:04 Labs: Sodium 146 mmol/L (136-145) H 04/20/22 06:20 Potassium 3.5 mmol/L (3.5-5.1) 04/20/22 06:20 Chloride 117 mmol/L (98-107) H 04/20/22 06:20 Carbon Dioxide 20.0 mmol/L (21.0-32.0) L 04/20/22 06:20 Anion Gap 9 (5-15) 04/20/22 06:20 BUN 56 mg/dL (7-18) H 04/20/22 06:20 Creatinine 2.52 mg/dL (0.55-1.02) H 04/20/22 06:20 Est GFR (MDRD) Af Amer 25 mL/min (>60) L 04/20/22 06:20 Est GFR (MDRD) Non-Af 21 mL/min (>60) L 04/20/22 06:20 BUN/Creatinine Ratio 22.2 RATIO (10-20) H 04/20/22 06:20 Glucose 132 mg/dL (74-106) H 04/20/22 06:20 Vancomycin Trough 29.2 ug/mL (5.0-15.0) H 04/11/22 21:30 Random Vancomycin 19.8 ug/mL (0.0-15.0) H 04/20/22 06:20 Microbiology: Microbiology 04/16/22 18:34 Blood Culture (Wb) - Left Wrist Blood Culture - Preliminary Meth. resistant Staph. aureus 04/16/22 18:28 Blood Culture (Wb) - Anticubital Left Blood Culture - Preliminary 04/18/22 15:56 Blood Culture (Wb) - Venous Blood Culture - Preliminary 04/13/22 07:30 Blood Culture (Wb) - Anticubital Left Blood Culture - Final Meth. resistant Staph. aureus 04/13/22 07:20 Blood Culture (Wb) - Pic Blood Culture - Final Meth. resistant Staph. aureus 04/09/22 20:51 Wound - Left Foot Gram Stain - Final 04/09/22 20:51 Wound - Left Foot Wound Culture - Final Meth. resistant Staph. aureus Streptococcus mitis/ oralis Corynebacterium striatum 04/09/22 20:51 Wound - Left Foot Anaerobic Culture - Final Prevotella bivia Bacteroides pyogenes 04/11/22 12:30 Wound Abcess - Right Foot Gram Stain - Final 04/11/22 12:30 Wound Abcess - Right Foot Wound Culture - Final Meth. resistant Staph. aureus 04/11/22 12:30 Wound Abcess - Right Foot Anaerobic Culture - Final No anaerobic bacteria isolated. 04/09/22 18:40 Urine, Catheterized Urine Culture - Final Culture exhibits no growth. 04/09/22 17:12 Blood Culture (Wb) - Anticubital Right Blood Culture - Final Staphylococcus aureus 04/09/22 16:50 Blood Culture (Wb) - Anticubital Right Bacteria Detection (PCR) - Final Staphylococcus aureus mecA Resistance Marker 04/09/22 16:50 Blood Culture (Wb) - Anticubital Right Blood Culture - Final Meth. resistant Staph. aureus Weight used for dosin.2 kg Estimated Creatinine Clearance: 28.4ml/min Goal Trough: 15-20 mcg/mL Pharmacy Plan for Drug Dosing: The vanc random level drawn at 06:20 today was 19.8. This is below 20 so will dose again with 500mg x1 today. Although the patient's SCr is slowly improving (SCr is 2.52 today), will continue to dose off random levels at this time due to several recent high vanc levels. Will repeat a random level tomorrow morning. The patient's CrCl of 28.4ml/min was calculated using an adjusted body weight of 72.1kg. Pharmacy Service will continue to monitor and adjust dosing as required. Follow-Up Labs: Trough Vancomycin - random Labs to be done on [date and time ordered]: 04/21/22 0600
--- NOTE | 2022-04-20 07:57 | CASEMGMT ---
Discharge Roads Supervisor [facility] had to decline patients referral. Yaneli Tejada/c reached out to Zoila at [facility]. D/c Organ Recovery Coordinator faxed referral to [facility]. Will follow up. Yaneli Hammond Discharge Roads Supervisor
[2022-04-20] MEDS: Vancomycin IV 500 MG/100 ML BAG 100 MG IV (08:31)
[2022-04-20] MEDS: Lidocaine 5% Patch 2 PATCH TOPICAL (08:32)
[2022-04-20] MEDS: Juven (unflavored) Packet 1 PACKET PO (08:32)
[2022-04-20] MEDS: Carvedilol 12.5 MG Tablet PO ×2 (08:32→22:18)
[2022-04-20] MEDS: Clopidogrel Bisulfate 75 MG Tablet PO (08:33)
[2022-04-20] MEDS: HYDROmorphone 0.5 MG/0.5 ML SYRINGE IV ×4 (09:39→23:32)
[2022-04-20] MEDS: Insulin Glargine-YFGN 100 UNIT/ML Pen 30 UNIT SC (09:45)
[2022-04-20] MEDS: Pantoprazole Sodium 40 MG Tablet PO (09:49)
[2022-04-20 10:05] LABS: Bedside Glucose 178 mg/dL (74-106)
--- NOTE | 2022-04-20 10:06 | PCM.PN.REN ---
Subjective Subjective Following for FELI on CKD Patient alert and oriented. Denies any complaints. Complains of feeling thirsty. No overnight events. Objective Data Objective Data Vital Signs: Vital Signs Temp Pulse Resp BP Pulse Ox O2 Del Method 98.1 F 110 H 18 181/100 H 99 Room Air 04/20/22 08:27 04/20/22 08:27 04/20/22 08:27 04/20/22 08:27 04/20/22 08:27 04/20/22 08:53 Oxygen Delivery Method Room Air Weight: 91.2 kg Body Mass Index (BMI) 29.0 Intake & Output: Intake and Output for Last 24 Hours 04/18/22 04/19/22 04/20/22 23:59 23:59 23:59 Intake Total 1963.33 / 1963.33 2745.83 / 2745.83 100 / 100 Output Total 775 / 1225 1250 / 1250 250 / 250 Balance 1188.33 / 738.33 1495.83 / 1495.83 -150 / -150 Medical Nutrition Assessment Dietitian: Malnutrition Criteria Met Start: 04/12/22 15:13 Freq: Status: Active Protocol: Document 04/16/22 09:36 AG (Rec: 04/16/22 09:37 [id number]) Nutrition Malnutrition Evidence of Malnutrition Exists Yes Malnutrition (severe): Acute Illness/Injury Evidenced By Suboptimal Energy Intake ( Severe),Weight Loss (Severe) Intake Problem Increased Nutrient Needs (specify) Etiology increased protein needs related to wounds Signs/Symptoms as evidenced by multiple wounds, DM foot infection to L bottom foot Status Active Problem Inadequate Oral Intake Etiology related to altered mental status Signs/Symptoms as evidenced by estimated PO intake meeting <50% of estimated energy needs x 6 days Status Active Problem Clinical Problem Acute Disease or Injury Related Malnutrition Etiology severe, acute malnutrition related to inadequate energy intake d/t altered mental status Signs/Symptoms as evidenced by unintentional 1.8kg/2% wt loss <1 week; estimated PO intake meeting < 50% of estimated energy needs x 6 days Status Active Problem Recommendation Dietitian Recommendations/Changes recommend regular, no added salt diet given acute malnutrition (texture/ consistency modifications per ENG[employer] REPA[employer]ODUCTION) when PO diet appropriate; resume Ensure Clear 120mL 4x/ day as pt accepting when diet resumed (note Ensure Clear cannot be thickened); Ted BID for wound healing when diet resumed. Lab / Micro Data Result Diagrams: 04/20/22 06:20 04/20/22 06:20 Labs: Laboratory Results - last 24 hr 04/19/22 11:20: POC Glucose 202 H 04/19/22 16:58: POC Glucose 158 H 04/19/22 21:31: POC Glucose 155 H 04/20/22 05:49: POC Glucose 24 L* 04/20/22 06:08: POC Glucose 154 H 04/20/22 06:20: Random Vancomycin 19.8 H 04/20/22 06:20: Sodium 146 H, Potassium 3.5, Chloride 117 H, Carbon Dioxide 20.0 L, Anion Gap 9, BUN 56 H, Creatinine 2.52 H, Estim Creat Clear Calc 23.34, Est GFR (MDRD) Af Amer 25 L, Est GFR (MDRD) Non-Af 21 L, BUN/Creatinine Ratio 22.2 H, Glucose 132 H, Calcium 8.5, Magnesium 1.6 04/20/22 06:20: WBC 17.7 H, RBC 3.19 L, Hgb 8.7 L, Hct 28.2 L, MCV 88.4, MCH 27.3, MCHC 30.9 L, RDW Std Deviation 62.3 H, RDW Coeff of Fior 19.7 H, Plt Count 254, MPV 10.9, Immature Gran % (Auto) 3.100 H, Neut % (Auto) 85.6 H, Lymph % (Auto) 5.5 L, [place] % (Auto) 3.8, Eos % (Auto) 1.7, Baso % (Auto) 0.3, Absolute Neuts (auto) 15.1 H, Absolute Lymphs (auto) 0.98, Nucleated RBC % 0 04/20/22 09:44: POC Glucose 178 H Micro: Microbiology 04/16/22 18:34 Blood Culture (Wb) - Left Wrist Blood Culture - Preliminary Meth. resistant Staph. aureus 04/16/22 18:28 Blood Culture (Wb) - Anticubital Left Blood Culture - Final Staphylococcus aureus 04/18/22 15:56 Blood Culture (Wb) - Venous Blood Culture - Preliminary 04/13/22 07:30 Blood Culture (Wb) - Anticubital Left Blood Culture - Final Meth. resistant Staph. aureus 04/13/22 07:20 Blood Culture (Wb) - Pic Blood Culture - Final Meth. resistant Staph. aureus 04/09/22 20:51 Wound - Left Foot Gram Stain - Final 04/09/22 20:51 Wound - Left Foot Wound Culture - Final Meth. resistant Staph. aureus Streptococcus mitis/ oralis Corynebacterium striatum 04/09/22 20:51 Wound - Left Foot Anaerobic Culture - Final Prevotella bivia Bacteroides pyogenes 04/11/22 12:30 Wound Abcess - Right Foot Gram Stain - Final 04/11/22 12:30 Wound Abcess - Right Foot Wound Culture - Final Meth. resistant Staph. aureus 04/11/22 12:30 Wound Abcess - Right Foot Anaerobic Culture - Final No anaerobic bacteria isolated. 04/09/22 18:40 Urine, Catheterized Urine Culture - Final Culture exhibits no growth. 04/09/22 17:12 Blood Culture (Wb) - Anticubital Right Blood Culture - Final Staphylococcus aureus 04/09/22 16:50 Blood Culture (Wb) - Anticubital Right Bacteria Detection (PCR) - Final Staphylococcus aureus mecA Resistance Marker 04/09/22 16:50 Blood Culture (Wb) - Anticubital Right Blood Culture - Final Meth. resistant Staph. aureus Radiography Diagnostic Testing: Radiology Impression Lower Extremity MRI 04/19/22 14:43 IMPRESSION: 1. Osteomyelitis involving the anterior medial aspect of the tarsal navicular, first and second cuneiform tarsal bones, and the cuboid tarsal bone, the base of the second metatarsal, in the proximal third, fourth, and fifth metatarsals. 2. Adjacent inflammatory soft tissue abnormalities. 3. Moderate motion artifact which resulted in the inability to adequately cite tendinous involvement. 4. No identification of fractures or dislocations. Electronically Signed: Eddie Vo MD at 0:41 EDT , Rhythm Strip Rhythm Strip: Sinus Rhythm Rate: 60 Ectopy: None Physical Exam Narrative General: No apparent distress Neck: Supple Heart: Normal S1, S2. No rubs, murmurs or gallops. RRR Lungs: Clear to auscultation anteriorly. No wheezes, rhonchi, rales noted. Abdominal: Normal bowel sounds, soft Extremities: No edema. [place] wraps dry and intact to bilateral feet : Indwelling Tirado catheter with clear urine in bag Assessment & Plan Assessment/Plan (1) FELI (acute kidney injury): PLAN: -FELI secondary to ischemic ATN related to septic shock. Patient was oliguric but is now non-oliguric -Serum creatinine 3.3 mg/dL on admission, peaked 4.08 mg/dL on 04/13 and is slowly improving daily with current creatinine 2.5mg/dL today. -Appetite had been very poor, patient was NPO. She had been on IV fluids due to poor appetite/NPO. Appetite is now improving. IV fluid rate decreased yesterday, will stop IV fluids altogether. Encourage patient to increase solute and free water intake. Today sodium is 146. The patient does not appear to be volume overloaded. -At this time there is no significant uremic symptoms, hyperkalemia, volume overload, or severe acidosis therefore there is no immediate need for kidney replacement therapy -Current medications are reviewed. They are all appropriately dosed for her renal function. -BPs elevated but have improved, we increased coreg 12.5mg bid (home dose 12.5mg bid) and today we will stop IV fluids. -Recheck renal function, volume status, acid-base status and electrolytes tomorrow. (2) Chronic kidney disease, stage 4 (severe): PLAN: Baseline serum creatinine is around 2.00 to 2.40 mg/dL. The patient has underlying diabetic kidney disease. (3) Metabolic acidosis: PLAN: Suspect her initial acidosis from FELI/CKD along with poor tissue perfusion, patient also received IV NS for volume expansion which can also contribute to non-anion gap metabolic acidosis. There was no ketones on urine dipstick on 04/09/2022. She was having diarrhea which can contribute to acidosis. Serum bicarbonate level has improved, currently at 20 mmol/L, continue sodium bicarbonate orally. Patient and staff report improvement in diarrhea (4) Septic shock: PLAN: Clinically improving. She is no longer on IV vasopressor. Hemodynamically stable today. Septic shock was secondary to cellulitis, diabetic foot infection +MRSA and possibly osteomyelitis. Antimicrobial coverage as per hospitalist and ID. Currently on meropenem and daptomycin MRI right foot showed Osteomyelitis involving the anterior medial aspect of the tarsal navicular, first and second cuneiform tarsal bones, and the cuboid tarsal bone, the base of the second metatarsal, in the proximal third, fourth, and fifth metatarsals. To have HONG tomorrow
--- NOTE | 2022-04-20 10:26 | PCM.PN.ID ---
Physical Exam Narrative No fever. New LLE weakness this AM. Mild lower back pain. Const alert and no apparent distress Resp normal air movement and clear to auscultation bilaterally Cardio regular rate and regular rhythm GI soft to palpation, non-tender and non-distended Skin Skin Narrative: feet wrapped Neuro Neuro Narrative: LLE diminished strength compared to RLE ID ID: Route of nutrition/ use of supplements: [] Nutritional Intake: [] IV Site: [] Tirado Catheter: [] Assessment & Plan Assessment/Plan (1) Chronic kidney disease, stage 4 (severe): (2) FELI (acute kidney injury): (3) Bacteremia: PLAN: MRSA bacteremia due to R foot osteo. Had 04/11/22 bedside I&D of R foot. Wound cx with mrsa, corynebacteria, strep, and anaerobes. TTE at start of stay with no veg. Still bacteremic, wbc remains elevated, new c/o LLE weakenss. MRI showed diffuse osteo of foot. Will change vanc to dapto, cont meropenem. Will check HONG, lumbar MRI. Will follow, d/w Dr. Yates (4) Osteomyelitis of metatarsal:
--- NOTE | 2022-04-20 10:32 | CASEMGMT ---
Discharge Breaker Off Zoila reached out. Patient has been accepted at [facility]. Zoila will start pre-cert. LUCRETIA Sellers has been notified Yaneli Hammond Discharge Breaker Off
--- NOTE | 2022-04-20 11:19 | CASEMGMT ---
Social Work Phone call to pt dgt Trisha and informed that [facility]. Referral then made to [facility] and they can accept pt. Precert will be needed and per physician, pt is not ready for discharge at this time. Trisha is agreeable to d/c plan. Precert has been started. Plan: [facility], precert pending ERIN Masters
[2022-04-20] MEDS: Insulin Lispro 100 UNIT/ML INSULN.PEN SC (11:38)
[2022-04-20] MEDS: Insulin Lispro 100 UNIT/ML INSULN.PEN 10 UNIT SC (11:38)
[2022-04-20 11:40] LABS: Bedside Glucose 172 mg/dL (74-106)
[2022-04-20] MEDS: Acetaminophen 325 MG Tablet 650 MG PO ×2 (11:43→23:01)
--- NOTE | 2022-04-20 11:52 | PN_ITS ---
Progress Note Nephrology attending attestation to [employer]NA[employer]'s note. Following for FELI on CKD. The patient has FELI from ischemic ATN related to sepsis. Serum creatinine p eaked at 4.08 mg/dL on 04/13/2022. Baseline serum creatinine is 2.00 to 2.40 mg/dL. Renal function has continued to improve in the past week. Current serum creatinine of 2.52 mg/dL is nearly back to baseline. We are stopping IV fluid today. I encouraged the patient to push oral solute/fluid intake. Current medications are reviewed and are appropriately dosed for her renal function. Recheck renal function, volume status, acid-base status and electrolytes tomorrow.
--- NOTE | 2022-04-20 11:53 | PN_ITS ---
Subjective Subjective This patient was seen this afternoon for follow up feet bilateral. She is resting in bed. She reports her left foot is more painful than the right she has weakness with onset of this morning. She reports it is not working normal. She also had an MRI completed this morning for the right foot and was seen by infectious disease specialist who adjusted her antibiotics. Objective Data Objective Data Vital Signs: Vital Signs Temp Pulse Resp BP Pulse Ox O2 Del Method 98.1 F 110 H 18 181/100 H 99 Room Air 04/20/22 08:27 04/20/22 08:27 04/20/22 08:27 04/20/22 08:27 04/20/22 08:27 04/20/22 08:53 Oxygen Delivery Method Room Air Weight: 91.2 kg Body Mass Index (BMI) 29.0 Intake & Output: Intake and Output for Last 24 Hours 04/18/22 04/19/22 04/20/22 23:59 23:59 23:59 Intake Total 1963.33 / 1963.33 2745.83 / 2745.83 160 / 160 Output Total 775 / 1225 1250 / 1250 250 / 250 Balance 1188.33 / 738.33 1495.83 / 1495.83 -90 / -90 Medical Nutrition Assessment Dietitian: Malnutrition Criteria Met Start: 04/12/22 15:13 Freq: Status: Active Protocol: Document 04/16/22 09:36 AG (Rec: 04/16/22 09:37 [id number]) Nutrition Malnutrition Evidence of Malnutrition Exists Yes Malnutrition (severe): Acute Illness/Injury Evidenced By Suboptimal Energy Intake ( Severe),Weight Loss (Severe) Intake Problem Increased Nutrient Needs (specify) Etiology increased protein needs related to wounds Signs/Symptoms as evidenced by multiple wounds, DM foot infection to L bottom foot Status Active Problem Inadequate Oral Intake Etiology related to altered mental status Signs/Symptoms as evidenced by estimated PO intake meeting <50% of estimated energy needs x 6 days Status Active Problem Clinical Problem Acute Disease or Injury Related Malnutrition Etiology severe, acute malnutrition related to inadequate energy intake d/t altered mental status Signs/Symptoms as evidenced by unintentional 1.8kg/2% wt loss <1 week; estimated PO intake meeting < 50% of estimated energy needs x 6 days Status Active Problem Recommendation Dietitian Recommendations/Changes recommend regular, no added salt diet given acute malnutrition (texture/ consistency modifications per OUTSIDE SALES EXECUTIVE) when PO diet appropriate; resume Ensure Clear 120mL 4x/ day as pt accepting when diet resumed (note Ensure Clear cannot be thickened); Ted BID for wound healing when diet resumed. Lab / Micro Data Result Diagrams: 04/20/22 06:20 04/20/22 06:20 Labs: Laboratory Results - last 24 hr 04/19/22 11:20: POC Glucose 202 H 04/19/22 16:58: POC Glucose 158 H 04/19/22 21:31: POC Glucose 155 H 04/20/22 05:49: POC Glucose 24 L* 04/20/22 06:08: POC Glucose 154 H 04/20/22 06:20: Random Vancomycin 19.8 H 04/20/22 06:20: Sodium 146 H, Potassium 3.5, Chloride 117 H, Carbon Dioxide 20.0 L, Anion Gap 9, BUN 56 H, Creatinine 2.52 H, Estim Creat Clear Calc 23.34, Est GFR (MDRD) Af Amer 25 L, Est GFR (MDRD) Non-Af 21 L, BUN/Creatinine Ratio 22.2 H , Glucose 132 H, Calcium 8.5, Magnesium 1.6 04/20/22 06:20: WBC 17.7 H, RBC 3.19 L, Hgb 8.7 L, Hct 28.2 L, MCV 88.4, MCH 27.3, MCHC 30.9 L, RDW Std Deviation 62.3 H, RDW Coeff of Fior 19.7 H, Plt Count 254, MPV 10.9, Immature Gran % (Auto) 3.100 H, Neut % (Auto) 85.6 H, Lymph % (Auto) 5.5 L, [place] % (Auto) 3.8, Eos % (Auto) 1.7, Baso % (Auto) 0.3, Absolute Neuts (auto) 15.1 H, Absolute Lymphs (auto) 0.98, Nucleated RBC % 0 04/20/22 09:44: POC Glucose 178 H 04/20/22 11:21: POC Glucose 172 H Micro: Microbiology 04/16/22 18:34 Blood Culture (Wb) - Left Wrist Blood Culture - Preliminary Meth. resistant Staph. aureus 04/16/22 18:28 Blood Culture (Wb) - Anticubital Left Blood Culture - Final Staphylococcus aureus 04/18/22 15:56 Blood Culture (Wb) - Venous Blood Culture - Preliminary 04/13/22 07:30 Blood Culture (Wb) - Anticubital Left Blood Culture - Final Meth. resistant Staph. aureus 04/13/22 07:20 Blood Culture (Wb) - Pic Blood Culture - Final Meth. resistant Staph. aureus 04/09/22 20:51 Wound - Left Foot Gram Stain - Final 04/09/22 20:51 Wound - Left Foot Wound Culture - Final Meth. resistant Staph. aureus Streptococcus mitis/ oralis Corynebacterium striatum 04/09/22 20:51 Wound - Left Foot Anaerobic Culture - Final Prevotella bivia Bacteroides pyogenes 04/11/22 12:30 Wound Abcess - Right Foot Gram Stain - Final 04/11/22 12:30 Wound Abcess - Right Foot Wound Culture - Final Meth. resistant Staph. aureus 04/11/22 12:30 Wound Abcess - Right Foot Anaerobic Culture - Final No anaerobic bacteria isolated. 04/09/22 18:40 Urine, Catheterized Urine Culture - Final Culture exhibits no growth. 04/09/22 17:12 Blood Culture (Wb) - Anticubital Right Blood Culture - Final Staphylococcus aureus 04/09/22 16:50 Blood Culture (Wb) - Anticubital Right Bacteria Detection (PCR) - Final Staphylococcus aureus mecA Resistance Marker 04/09/22 16:50 Blood Culture (Wb) - Anticubital Right Blood Culture - Final Meth. resistant Staph. aureus Radiography Diagnostic Testing: Radiology Impression Lower Extremity MRI 04/19/22 14:43 IMPRESSION: 1. Osteomyelitis involving the anterior medial aspect of the tarsal navicular, first and second cuneiform tarsal bones, and the cuboid tarsal bone, the base of the second metatarsal, in the proximal third, fourth, and fifth metatarsals. 2. Adjacent inflammatory soft tissue abnormalities. 3. Moderate motion artifact which resulted in the inability to adequately cite tendinous involvement. 4. No identification of fractures or dislocations. Electronically Signed: Eddie Vo MD at 0:41 EDT , Rhythm Strip Rhythm Strip: Sinus Rhythm Rate: 60 Ectopy: None Physical Exam Const alert Extremity normal capillary refill and no calf tenderness Extremity Narrative: Left foot: Ulceration plantar lateral midfoot foot down to fascia tissue - healing - no probe to bone - tissues are healthy and viable with no evidence of infection - no drainage, no maloder, no erythema, no necrosis, no visible abscess; no other open lesions, no evidence of ischemia to the foot or ankle, CFT < 2 seconds to all toes, no edema. Right foot: Ulceration to the lateral midfoot probes to bone, there is no cellulitis, no erythema, no edema, no maloder, no necrosis, no visible abscess, there is no drainage today. No other open lesions, no erythema, no necrosis, no visible abscess; no evidence of ischemia to the foot or ankle, CFT < 2 seconds to all toes, no edema. There is no POP or pain on ROM to the foot or ankle bilateral. She has weakness with active range of motion of the left ankle and toes which actually is consistent with prior exams. Lack of epicritic sensation bilateral lower extremities is also consistent with her neuropathic status. Bilateral rocker-bottom Charcot foot deformities are noted without acute laxity or shape change compared to prior visits Assessment & Plan Assessment/Plan (1) Diabetic foot ulcers: (2) Diabetes mellitus with diabetic polyneuropathy: (3) Charcot's joint, right ankle and foot: (4) Osteomyelitis of metatarsal: (5) Non-pressure chronic ulcer of other part of left foot with fat layer exposed: (6) Chronic ulcer of right foot with necrosis of bone: PLAN: Plan Re-evaluation performed. Reviewed diagnostic data. She still has white blood cell count elevation. Patient with 4th/5th metatarsal and cuboid osteomyelitis and Charcot foot- clinically the right and left foot with no cellulitis, no drainage, no maloder, no visible abscess and is clinically stable at this time To continue with antibiotics and local wound care - ID service is on consult. Updates are noted and appreciated. MRSA bacteremia due to R foot osteo.? Had 04/11/22 bedside I&D of R foot.? Wound culture from 04/11/22 so far with mrsa, cor ynebacteria, strep, anaerobes.? Still bacteremic with leukocytosis now with a new c/o left lower extremity weakenss.? MRI showed diffuse osteo of right foot which is also consistent with charcot MRI findings.? Updated antibiotics to dapto and meropenem.? Repeat HONG and new lumbar MRI ordered. Wound care right foot: Iodoform gauze packing with overlying gauze, kerlix, abd pad, and brando dressing - change daily. Wound care left foot: Silver alginate and gauze, kerlix, abd pad, and brando dressing - change daily. No weightbearing bilateral foot. Podiatry will continue to follow while in-house. Medical management per hospitalist and other consulting services is noted and appreciated. Podiatric surgery is not planned at this time. Please do not hesitate to call if you have any questions. Lavern Edgar DPM, F[facility] [phone]
[2022-04-20] MEDS: Sodium Bicarbonate 650 MG Tablet 1300 MG PO ×2 (14:01→22:18)
[2022-04-20 16:20] LABS: Bedside Glucose 61 mg/dL (74-106)
[2022-04-20 16:45] LABS: Bedside Glucose 88 mg/dL (74-106)
[2022-04-20 22:15] LABS: Bedside Glucose 64 mg/dL (74-106)
[2022-04-20] MEDS: Paroxetine 20 MG Tablet PO (22:18)
[2022-04-20] MEDS: Atorvastatin Calcium 80 MG Tablet PO (22:18)
[2022-04-20 23:22] LABS: Bedside Glucose 87 mg/dL (74-106)
[2022-04-21] VITALS (11 sets, daily range): BP systolic 142–164; BP diastolic 74–93; PULSE 74–101; RESP 16–18; TEMP 36.1–37.1; O2SAT 96–98
[2022-04-21] MEDS: Dextrose 50%-Water 25 GM/50 ML DISP.SYRIN IV ×2 (02:13→05:24)
[2022-04-21] MEDS: 0.9% Saline Lock 10 ML Syringe IV ×3 (02:16→05:42)
[2022-04-21 02:26] LABS: Bedside Glucose 67 mg/dL (74-106)
[2022-04-21 02:56] LABS: Bedside Glucose 113 mg/dL (74-106)
[2022-04-21 05:21] LABS: Absolute Lymphocyte Count 1.08 X10^3/uL (0.83-4.51); Absolute Neutrophil Count 15.6 X10^3/uL (2.0-7.7); Basophil# 0.03 X10^3/uL; Basophil% 0.2 % (0-1); Eosinophil# 0.25 X10^3/uL; Eosinophils% 1.4 % (0-5); Hematocrit 25.3 % (37-47); Hemoglobin 7.7 g/dL (12.0-15.0); Lymphocyte # 1.08 X10^3/ul (0.83-4.51); Mean Corp Hgb Conc 30.4 g/dL (32-36); Mean Corpuscular Volume 88.8 fL (81-99); Mean Platelet Vol. 11.6 fl (6.2-12.0); Monocyte# 0.87 X10^3/uL; Monocyte% 4.8 % (0-10); NRBC Flagged by Analyzer 0 % (0-5); Neutrophil # 15.57 X10^3/uL (2.7-7.7); Neutrophil % 86.4 % (47-70); Platelet Count 224 K/mm3 (150-450); RBC Distribution Width CV 19.8 % (11.6-14.6); RBC Distribution Width SD 62.3 fl (35.1-43.9); Red Blood Count 2.85 M/mm3 (4.2-5.4)
[2022-04-21 05:36] LABS: Bedside Glucose 56 mg/dL (74-106)
[2022-04-21] MEDS: HYDROmorphone 0.5 MG/0.5 ML SYRINGE IV ×2 (05:42→14:35)
[2022-04-21] MEDS: Menthol/Lanolin/Calamine/Znox 113 GM Tube 1 APPLIC TOPICAL ×3 (05:43→21:07)
[2022-04-21 05:52] LABS: Albumin, Serum 1.2 g/dL (3.2-5.0); BUN 58 mg/dL (7-18); Calcium,Total 7.9 mg/dL (8.5-10.1); Chloride 114 mmol/L (98-107); Creatinine, Serum 2.32 mg/dL (0.55-1.02); EST Glomerular Filtration Rate 23 mL/min (>60); Est Glom Filt Rate - Afr Amer 28 mL/min (>60); Estimated Creatinine Clearance 25.35 ml/min; Glucose 52 mg/dL (74-106); Phosphorus 2.9 mg/dL (2.5-4.9); Potassium 4.3 mmol/L (3.5-5.1); Sodium Level 141 mmol/L (136-145)
--- NOTE | 2022-04-21 06:11 | PCM.HOSP.N ---
Hospitalist Note Patient with hypoglycemia, repeat occasions. NPO currently. Will place on D5NS low dose.
[2022-04-21] MEDS: Dextrose 5%/0.9% NaCl 1,000 ML 60 ML IV ×2 (06:25→23:42)
[2022-04-21 06:26] LABS: Bedside Glucose 99 mg/dL (74-106)
--- NOTE | 2022-04-21 07:29 | PN.HOSP_ITS ---
Subjective Subjective Patient had a hypoglycemic episode during the night necessitating initiation of dextrose. Patient is scheduled to undergo HONG. MRI of the lumbar spine obtained the day prior as part of work-up for her persistent bacteremia failed to show any epidural abscess Objective Data Objective Data Vital Signs: Vital Signs Temp Pulse Resp BP Pulse Ox O2 Del Method 98.4 F 83 16 142/78 H 98 Room Air 04/21/22 05:32 04/21/22 05:32 04/21/22 05:32 04/21/22 05:32 04/21/22 05:32 04/21/22 05:32 Oxygen Delivery Method Room Air Weight: 93.6 kg Body Mass Index (BMI) 29.0 Intake & Output: Intake and Output for Last 24 Hours 04/19/22 04/20/22 04/21/22 23:59 23:59 23:59 Intake Total 2745.83 / 2745.83 1492.33 / 1492.33 Output Total 1250 / 1250 1050 / 1050 350 / 350 Balance 1495.83 / 1495.83 442.33 / 442.33 -350 / -350 Medical Nutrition Assessment Dietitian: Malnutrition Criteria Met Start: 04/12/22 15:13 Freq: Status: Active Protocol: Document 04/16/22 09:36 AG (Rec: 04/16/22 09:37 [id number]) Nutrition Malnutrition Evidence of Malnutrition Exists Yes Malnutrition (severe): Acute Illness/Injury Evidenced By Suboptimal Energy Intake ( Severe),Weight Loss (Severe) Intake Problem Increased Nutrient Needs (specify) Etiology increased protein needs related to wounds Signs/Symptoms as evidenced by multiple wounds, DM foot infection to L bottom foot Status Active Problem Inadequate Oral Intake Etiology related to altered mental status Signs/Symptoms as evidenced by estimated PO intake meeting <50% of estimated energy needs x 6 days Status Active Problem Clinical Problem Acute Disease or Injury Related Malnutrition Etiology severe, acute malnutrition related to inadequate energy intake d/t altered mental status Signs/Symptoms as evidenced by unintentional 1.8kg/2% wt loss <1 week; estimated PO intake meeting < 50% of estimated energy needs x 6 days Status Active Problem Recommendation Dietitian Recommendations/Changes recommend regular, no added salt diet given acute malnutrition (texture/ consistency modifications per DEFENSE ANALYST) when PO diet appropriate; resume Ensure Clear 120mL 4x/ day as pt accepting when diet resumed (note Ensure Clear cannot be thickened); Ted BID for wound healing when diet resumed. Lab / Micro Data Result Diagrams: 04/21/22 04:13 04/21/22 04:13 Labs: Laboratory Results - last 24 hr 04/20/22 09:44: POC Glucose 178 H 04/20/22 11:21: POC Glucose 172 H 04/20/22 16:02: POC Glucose 61 L 04/20/22 16:24: POC Glucose 88 04/20/22 21:55: POC Glucose 64 L 04/20/22 22:12: POC Glucose 87 04/21/22 02:05: POC Glucose 67 L 04/21/22 02:34: POC Glucose 113 H 04/21/22 04:13: WBC 18.0 H, RBC 2.85 L, Hgb 7.7 L, Hct 25.3 L, MCV 88.8, MCH 27.0, MCHC 30.4 L, RDW Std Deviation 62.3 H, RDW Coeff of Fior 19.8 H, Plt Count 224, MPV 11.6, Immature Gran % (Auto) 1.200 H, Neut % (Auto) 86.4 H, Lymph % (Auto) 6.0 L, [place] % (Auto) 4.8, Eos % (Auto) 1.4, Baso % (Auto) 0.2, Absolute Neuts (auto) 15.6 H, Absolute Lymphs (auto) 1.08, Nucleated RBC % 0 04/21/22 04:13: Sodium 141, Potassium 4.3, Chloride 114 H, Carbon Dioxide 22.0, BUN 58 H, Creatinine 2.32 H, Estim Creat Clear Calc 25.35, Est GFR (MDRD) Af Amer 28 L, Est GFR (MDRD) Non-Af 23 L, BUN/Creatinine Ratio 25.0 H, Glucose 52 L , Calcium 7.9 L, Phosphorus 2.9, Albumin 1.2 L 04/21/22 05:17: POC Glucose 56 L 04/21/22 05:51: POC Glucose 99 Micro: Microbiology 04/18/22 14:47 Blood Culture (Wb) - Right Wrist Blood Culture - Preliminary Staphylococcus aureus 04/18/22 15:56 Blood Culture (Wb) - Venous Blood Culture - Preliminary Staphylococcus aureus 04/16/22 18:34 Blood Culture (Wb) - Left Wrist Blood Culture - Preliminary Meth. resistant Staph. aureus 04/16/22 18:28 Blood Culture (Wb) - Anticubital Left Blood Culture - Final Staphylococcus aureus 04/13/22 07:30 Blood Culture (Wb) - Anticubital Left Blood Culture - Final Meth. resistant Staph. aureus 04/13/22 07:20 Blood Culture (Wb) - Pic Blood Culture - Final Meth. resistant Staph. aureus 04/09/22 20:51 Wound - Left Foot Gram Stain - Final 04/09/22 20:51 Wound - Left Foot Wound Culture - Final Meth. resistant Staph. aureus Streptococcus mitis/ oralis Corynebacterium striatum 04/09/22 20:51 Wound - Left Foot Anaerobic Culture - Final Prevotella bivia Bacteroides pyogenes 04/11/22 12:30 Wound Abcess - Right Foot Gram Stain - Final 04/11/22 12:30 Wound Abcess - Right Foot Wound Culture - Final Meth. resistant Staph. aureus 04/11/22 12:30 Wound Abcess - Right Foot Anaerobic Culture - Final No anaerobic bacteria isolated. 04/09/22 18:40 Urine, Catheterized Urine Culture - Final Culture exhibits no growth. 04/09/22 17:12 Blood Culture (Wb) - Anticubital Right Blood Culture - Final Staphylococcus aureus 04/09/22 16:50 Blood Culture (Wb) - Anticubital Right Bacteria Detection (PCR) - Final Staphylococcus aureus mecA Resistance Marker 04/09/22 16:50 Blood Culture (Wb) - Anticubital Right Blood Culture - Final Meth. resistant Staph. aureus Radiography Diagnostic Testing: Radiology Impression Lumbar Spine MRI 04/20/22 00:00 IMPRESSION: No change from 01/06/2022. Electronically Signed: Scot Penny MD at 17:21 EDT , Rhythm Strip Rhythm Strip: Sinus Rhythm Rate: 60 Ectopy: None Physical Exam Narrative GENERAL: Tearful HEENT: Atraumatic; EYES; Anicteric, Normal Conjunctiva NECK; supple, normal thyroid, RESPIRATORY: Diminished to auscultation CARDIOVASCULAR:? Regular S1 S2, GI:? soft, normoactive bowel sounds, : No Renal angle tenderness; EXTREMITIES: Both lower extremities in surgical dressing MUSCULOSKELETAL:? no muscle wasting NEURO:? Awake;? no lateralizing signs. SKIN:? No Rash PSYCH; depressed Assessment & Plan Assessment/Plan (1) Cellulitis of both lower extremities: (2) Chronic kidney disease, stage 4 (severe): PLAN: Plan Patient is a 56-year-old lady with complicated past medical history including acute on chronic kidney disease stage IV, diabetes mellitus type 2, history of bilateral lower extremity diabetic foot ulcers who presented with septic shock secondary to diabetic foot ulcers with osteomyelitis involving the right foot (cuboid and base of fourth and fifth toes). Patient had MRSA bacteremia 1.? Cellulitis and abscess involving an infected right foot wound, Osteomyelitis involving base of 4th and 5th toesl? right foot secondary to MRSA ? Patient had MRSA bacteremia. Managed with Vanco and cefepime. Consultation was placed to podiatry patient underwent debridement on 04/11/2022 -04/20/2022; Patient still remains bacteremic. MRI ordered by ID did show 1. Osteomyelitis involving the anterior medial aspect of the tarsal navicular, first and second cuneiform tarsal bones, and the cuboid tarsal bone, the base of the second metatarsal, in the proximal third, fourth, and fifth metatarsals. 2.? Adjacent inflammatory soft tissue abnormalities. 2.? Staph aureus bacteremia ? secondary to above -04/21/2022 Patient is scheduled to undergo HONG. MRI of the lumbar spine obtained the day prior as part of work-up for her persistent bacteremia failed to show any epidural abscess 3.? Acute kidney injury ?Superimposed on chronic kidney disease stage IV.? Monitoring with daily BMPs nephrology following 4.? Anemia - Secondary to chronic disorder monitoring H&H and transfuse if patient becomes symptomatic or hemoglobin falls below? 7 5.? Diabetes mellitus type II ?With complications including Charcot foot as well as diabetic foot ulcers.? Patient is onlong acting insulin, Accu-Cheks a.c. and at bedtime and covered with sliding scale insulin ? 04/21/2022 patient had hypoglycemic episode 6.? Depression with anxiety ?Patient is on SSRI 7.? Dyslipidemia -Patient is on statin therapy, continued at home dose 8.? Acute metabolic encephalopathy ? Multifactorial including underlying infection as well as pain meds possible SSRI withdrawal 9.? Chronic back pain ?Patient is managed with outpatient epidural steroid injection 10. DVT prophylaxis - Heparin SC 11.? Physical deconditioning - Requested for PT OT eval and social worker palliative care to assist with discharge planning ? 12. Severe acute? malnutrition ? Related to inadequate energy intake d/t altered mental status as evidenced by unintentional 1.8kg/2% wt loss <1 week; estimated PO intake meeting <50% of estimated energy needs x 6 days recommend regular, no added salt diet given acute malnutrition (texture/consistency modifications per DEFENSE ANALYST) when PO diet appropriate; resume Ensure Clear 120mL 4x/day as pt accepting when diet resumed (note Ensure Clear cannot be thickened); Ted BID for wound healing when diet resumed. Charges/Coding Visit Charges Inpatient E&M: 38830 Subs Hosp L3
[2022-04-21 07:30] LABS: Bedside Glucose 73 mg/dL (74-106)
--- NOTE | 2022-04-21 08:15 | ECHOTEE_ITS ---
Reason For Study: Murmur, sepsis, R/O Endocarditis Medication HONG probe 6VT-D (SN [id number]) passed without difficulty. No complications were noted. Cetacaine Topical Mcgehee given X3 orally. Versed 1 mg given slow IVP. Fentanyl 50 mcg given slow IVP. Performed a rapid injection of agitated mix of 9 cc saline and 1cc air to assess for atrial septal defect. Left Ventricle Normal LV size. Left ventricular systolic function is normal. The estimated ejection fraction is 55 %. No regional wall motion abnormalities noted. Right Ventricle Normal RV size. The right ventricular wall motion is normal. Atria No doppler evidence for ASD. Bubble contrast study negative for right to left interatrial shunt. Normal left atrium. There is no sponatenous contrast in the left atrium. No thrombus is detected in the left atrial appendage. Normal right atrium. There is no sponatenous contrast in the right atrium. No RA/appendage thrombus identified. Mitral Valve There is no mitral annular calcification. Normal mitral valve. Mild (1+) mitral valve insufficiency. Tricuspid Valve Normal tricuspid valve. Mild tricuspid valve insufficiency. Aortic Valve Trisinus/trileaflet aortic valve. Normal aortic valve. Pulmonic Valve Normal pulmonic valve. Trivial pulmonic valve insufficiency. Vessels Normal appearing thoracic aorta. Pericardium No pericardial effusion. Doppler Measurements & Calculations TR max lex: 329.3 cm/sec ECHO/Echo Transesophageal (HONG) Interpretation Summary Left ventricular systolic function is normal. The estimated ejection fraction is 55 %. There is no sponatenous contrast in the left atrium. No thrombus is detected in the left atrial appendage. Mild (1+) mitral valve insufficiency. Mild tricuspid valve insufficiency. Trivial pulmonic valve insufficiency. Bubble contrast study negative for right to left interatrial shunt. Comment: No obvious 2D echocardiographic findings considered compatible with fi ndings suspicious for infective endocarditis. Ordering Physician: Kike Tello Referring Physician: MD Jeaneth Raúl Performed By: Geovanna Tate GEORGINA
[2022-04-21 08:20] LABS: Bedside Glucose 78 mg/dL (74-106)
--- NOTE | 2022-04-21 09:33 | NURSING ---
Pt returned from HONG she is reconnected to IV and is resting in bed.
[2022-04-21 10:31] LABS: Bedside Glucose 93 mg/dL (74-106)
[2022-04-21] MEDS: Lidocaine 5% Patch 2 PATCH TOPICAL (12:45)
[2022-04-21] MEDS: Clopidogrel Bisulfate 75 MG Tablet PO (12:47)
[2022-04-21] MEDS: Pantoprazole Sodium 40 MG Tablet PO (12:47)
[2022-04-21] MEDS: Carvedilol 12.5 MG Tablet PO ×2 (12:47→21:01)
[2022-04-21] MEDS: Acetaminophen 325 MG Tablet 650 MG PO ×2 (12:50→17:25)
--- NOTE | 2022-04-21 14:02 | PCM.PN.ID ---
Physical Exam Narrative Feeling better, LLE strength improved, no fever Const alert and no apparent distress Resp normal air movement and clear to auscultation bilaterally Cardio regular rate and regular rhythm GI soft to palpation, non-tender and non-distended Skin Skin Narrative: foot wrapped ID ID: Route of nutrition/ use of supplements: [] Nutritional Intake: [] IV Site: [] Tirado Catheter: [] Assessment & Plan Assessment/Plan (1) Chronic kidney disease, stage 4 (severe): (2) FELI (acute kidney injury): (3) Bacteremia: PLAN: MRSA bacteremia due to R foot osteo. Had 04/11/22 bedside I&D of R foot. Wound cx with mrsa, corynebacteria, strep, and anaerobes. TTE at start of stay with no veg. Bcx now neg at 48 hours. HONG neg for veg. MRI neg for lumbar osteo/discitis/abscess. Cont dapto and jonel. Will follow (4) Osteomyelitis of metatarsal:
[2022-04-21] MEDS: Sodium Bicarbonate 650 MG Tablet 1300 MG PO ×2 (14:36→21:00)
[2022-04-21] MEDS: hydrALAZINE 20 MG/ML Vial 10 MG IV (15:32)
[2022-04-21 17:00] LABS: Bedside Glucose 157 mg/dL (74-106)
[2022-04-21] MEDS: oxyCODONE 5 MG Tablet PO ×2 (17:19→23:36)
[2022-04-21] MEDS: Juven (unflavored) Packet 1 PACKET PO (17:20)
[2022-04-21] MEDS: Haloperidol Lactate 5 MG/ML Vial 2 MG IM (21:01)
[2022-04-21] MEDS: Paroxetine 20 MG Tablet PO (21:01)
[2022-04-21] MEDS: Atorvastatin Calcium 80 MG Tablet PO (21:01)
[2022-04-21] MEDS: Insulin Lispro 100 UNIT/ML INSULN.PEN SC (21:04)
[2022-04-21 21:31] LABS: Bedside Glucose 266 mg/dL (74-106)
[2022-04-22] MEDS: Acetaminophen 325 MG Tablet 650 MG PO ×4 (01:03→17:51)
[2022-04-22 04:41] VITALS: BP 138/70; PULSE 79; RESP 18; TEMP 36.1; O2SAT 97
[2022-04-22 04:43] LABS: Absolute Neutrophil Count 14.7 X10^3/uL (2.0-7.7); Basophil# 0.04 X10^3/uL; Basophil% 0.2 % (0-1); Eosinophil# 0.12 X10^3/uL; Eosinophils% 0.7 % (0-5); Hematocrit 24.6 % (37-47); Hemoglobin 7.5 g/dL (12.0-15.0); Lymphocyte % 4.3 % (19-41); Mean Corp Hgb Conc 30.5 g/dL (32-36); Mean Corpuscular Volume 88.5 fL (81-99); Mean Platelet Vol. 11.1 fl (6.2-12.0); Monocyte# 0.71 X10^3/uL; Monocyte% 4.3 % (0-10); NRBC Flagged by Analyzer 0 % (0-5); Neutrophil # 14.71 X10^3/uL (2.7-7.7); Neutrophil % 89.4 % (47-70); Platelet Count 186 K/mm3 (150-450); RBC Distribution Width CV 19.5 % (11.6-14.6); RBC Distribution Width SD 61.5 fl (35.1-43.9); Red Blood Count 2.78 M/mm3 (4.2-5.4); White Blood Count 16.5 K/mm3 (4.4-11.0)
[2022-04-22 05:28] LABS: Anion Gap 4 (5-15); BUN 60 mg/dL (7-18); BUN/Creat Ratio 26.3 RATIO (10-20); Calcium,Total 7.5 mg/dL (8.5-10.1); Chloride 114 mmol/L (98-107); Creatinine, Serum 2.28 mg/dL (0.55-1.02); EST Glomerular Filtration Rate 24 mL/min (>60); Est Glom Filt Rate - Afr Amer 28 mL/min (>60); Estimated Creatinine Clearance 25.79 ml/min; Glucose 299 mg/dL (74-106); Potassium 4.6 mmol/L (3.5-5.1); Sodium Level 140 mmol/L (136-145)
[2022-04-22] MEDS: oxyCODONE 5 MG Tablet PO ×3 (06:12→20:30)
[2022-04-22] MEDS: Sodium Bicarbonate 650 MG Tablet 1300 MG PO ×3 (06:12→22:28)
[2022-04-22] MEDS: 0.9% Saline Lock 10 ML Syringe IV (06:14)
[2022-04-22] MEDS: Menthol/Lanolin/Calamine/Znox 113 GM Tube 1 APPLIC TOPICAL ×3 (06:14→22:29)
--- NOTE | 2022-04-22 06:53 | PCM.PROGNOTE ---
Subjective Subjective This patient was seen this morning for follow up feet bilateral. She is resting in bed. She reports her left foot still does not feel normal. She denies fever, chills, nausea, vomiting. She is able to answer questions but this is delayed. Objective Data Objective Data Vital Signs: Vital Signs Temp Pulse Resp BP Pulse Ox O2 Del Method 97 F L 79 18 138/70 H 97 Room Air 04/22/22 04:41 04/22/22 04:41 04/22/22 04:41 04/22/22 04:41 04/22/22 04:41 04/22/22 04:41 Oxygen Delivery Method Room Air Weight: 93.6 kg Body Mass Index (BMI) 29.0 Intake & Output: Intake and Output for Last 24 Hours 04/20/22 04/21/22 04/22/22 23:59 23:59 23:59 Intake Total 1492.33 / 1492.33 1870 / 1870 Output Total 1050 / 1050 1550 / 1550 200 / 200 Balance 442.33 / 442.33 320 / 320 -200 / -200 Medical Nutrition Assessment Dietitian: Malnutrition Criteria Met Start: 04/12/22 15:13 Freq: Status: Active Protocol: Document 04/16/22 09:36 AG (Rec: 04/16/22 09:37 AG [id number]) Nutrition Malnutrition Evidence of Malnutrition Exists Yes Malnutrition (severe): Acute Illness/Injury Evidenced By Suboptimal Energy Intake ( Severe),Weight Loss (Severe) Intake Problem Increased Nutrient Needs (specify) Etiology increased protein needs related to wounds Signs/Symptoms as evidenced by multiple wounds, DM foot infection to L bottom foot Status Active Problem Inadequate Oral Intake Etiology related to altered mental status Signs/Symptoms as evidenced by estimated PO intake meeting <50% of estimated energy needs x 6 days Status Active Problem Clinical Problem Acute Disease or Injury Related Malnutrition Etiology severe, acute malnutrition related to inadequate energy intake d/t altered mental status Signs/Symptoms as evidenced by unintentional 1.8kg/2% wt loss <1 week; estimated PO intake meeting < 50% of estimated energy needs x 6 days Status Active Problem Recommendation Dietitian Recommendations/Changes recommend regular, no added salt diet given acute malnutrition (texture/ consistency modifications per SUPER[employer]ARMENT) when PO diet appropriate; resume Ensure Clear 120mL 4x/ day as pt accepting when diet resumed (note Ensure Clear cannot be thickened); Ted BID for wound healing when diet resumed. Lab / Micro Data Result Diagrams: 04/22/22 04:16 04/22/22 04:16 Labs: Laboratory Results - last 24 hr 04/21/22 07:13: POC Glucose 73 L 04/21/22 08:02: POC Glucose 78 04/21/22 10:11: POC Glucose 93 04/21/22 16:36: POC Glucose 157 H 04/21/22 20:57: POC Glucose 266 H 04/22/22 04:16: WBC 16.5 H, RBC 2.78 L, Hgb 7.5 L, Hct 24.6 L, MCV 88.5, MCH 27.0, MCHC 30.5 L, RDW Std Deviation 61.5 H, RDW Coeff of Fior 19.5 H, Plt Count 186, MPV 11.1, Immature Gran % (Auto) 1.100 H, Neut % (Auto) 89.4 H, Lymph % (Auto) 4.3 L, [place] % (Auto) 4.3, Eos % (Auto) 0.7, Baso % (Auto) 0.2, Absolute Neuts (auto) 14.7 H, Absolute Lymphs (auto) 0.70 L, Nucleated RBC % 0 04/22/22 04:16: Sodium 140, Potassium 4.6, Chloride 114 H, Carbon Dioxide 22.0, Anion Gap 4 L, BUN 60 H, Creatinine 2.28 H, Estim Creat Clear Calc 25.79, Est GFR (MDRD) Af Amer 28 L, Est GFR (MDRD) Non-Af 24 L, BUN/Creatinine Ratio 26.3 H, Glucose 299 H, Calcium 7.5 L Micro: Microbiology 04/19/22 13:45 Blood Culture (Wb) - Left Hand Blood Culture - Preliminary No growth in 48 hours. 04/18/22 14:47 Blood Culture (Wb) - Right Wrist Blood Culture - Preliminary Staphylococcus aureus 04/18/22 15:56 Blood Culture (Wb) - Venous Blood Culture - Preliminary Staphylococcus aureus 04/16/22 18:34 Blood Culture (Wb) - Left Wrist Blood Culture - Preliminary Meth. resistant Staph. aureus 04/16/22 18:28 Blood Culture (Wb) - Anticubital Left Blood Culture - Final Staphylococcus aureus 04/13/22 07:30 Blood Culture (Wb) - Anticubital Left Blood Culture - Final Meth. resistant Staph. aureus 04/13/22 07:20 Blood Culture (Wb) - Pic Blood Culture - Final Meth. resistant Staph. aureus 04/09/22 20:51 Wound - Left Foot Gram Stain - Final 04/09/22 20:51 Wound - Left Foot Wound Culture - Final Meth. resistant Staph. aureus Streptococcus mitis/ oralis Corynebacterium striatum 04/09/22 20:51 Wound - Left Foot Anaerobic Culture - Final Prevotella bivia Bacteroides pyogenes 04/11/22 12:30 Wound Abcess - Right Foot Gram Stain - Final 04/11/22 12:30 Wound Abcess - Right Foot Wound Culture - Final Meth. resistant Staph. aureus 04/11/22 12:30 Wound Abcess - Right Foot Anaerobic Culture - Final No anaerobic bacteria isolated. 04/09/22 18:40 Urine, Catheterized Urine Culture - Final Culture exhibits no growth. 04/09/22 17:12 Blood Culture (Wb) - Anticubital Right Blood Culture - Final Staphylococcus aureus 04/09/22 16:50 Blood Culture (Wb) - Anticubital Right Bacteria Detection (PCR) - Final Staphylococcus aureus mecA Resistance Marker 04/09/22 16:50 Blood Culture (Wb) - Anticubital Right Blood Culture - Final Meth. resistant Staph. aureus Radiography Diagnostic Testing: Radiology Impression Transesophageal Echocardiogram 04/21/22 08:15 Interpretation Summary Left ventricular systolic function is normal. The estimated ejection fraction is 55 %. There is no sponatenous contrast in the left atrium. No thrombus is detected in the left atrial appendage. Mild (1+) mitral valve insufficiency. Mild tricuspid valve insufficiency. Trivial pulmonic valve insufficiency. Bubble contrast study negative for right to left interatrial shunt. Comment: No obvious 2D echocardiographic findings considered compatible with findings suspicious for infective endocarditis. Ordering Physician: Kike Tello Referring Physician: MD Jeaneth Raúl Performed By: Geovanna Tate RDCS Rhythm Strip Rhythm Strip: Sinus Rhythm Rate: 60 Ectopy: None Physical Exam Const alert Extremity normal capillary refill and no calf tenderness Extremity Narrative: Left foot: Ulceration plantar lateral midfoot foot down to fascia tissue - healing - no probe to bone - tissues are healthy and viable with no evidence of infection - no drainage, no maloder, no erythema, no necrosis, no visible abscess; no other open lesions, no evidence of ischemia to the foot or ankle, CFT < 2 seconds to all toes, no edema. Right foot: Ulceration to the lateral midfoot probes to bone, there is no cellulitis, no erythema, no edema, no maloder, no necrosis, no visible abscess, there is no drainage today. No other open lesions, no erythema, no necrosis, no visible abscess; no evidence of ischemia to the foot or ankle, CFT < 2 seconds to all toes, no edema. There is no POP or pain on ROM to the foot or ankle bilateral. She has weakness with active range of motion of the left ankle and toes which actually is consistent with prior exams (4/5 all directions). Lack of epicritic sensation bilateral lower extremities is also consistent with her neuropathic status. Bilateral rocker-bottom Charcot foot deformities are noted without acute laxity or shape change compared to prior visits Assessment & Plan Assessment/Plan (1) Diabetic foot ulcers: (2) Diabetes mellitus with diabetic polyneuropathy: (3) Charcot's joint, right ankle and foot: (4) Osteomyelitis of metatarsal: (5) Non-pressure chronic ulcer of other part of left foot with fat layer exposed: (6) Chronic ulcer of right foot with necrosis of bone: PLAN: Plan Re-evaluation performed. Reviewed diagnostic data. Vitals are stable and she is afebrile this morning. She still has white blood cell count elevation; 16.5. Patient with 4th/5th metatarsal and cuboid osteomyelitis and Charcot foot- clinically the right and left foot with no cellulitis, no drainage, no maloder, no visible abscess and is clinically stable at this time To continue with antibiotics and local wound care - ID service is on consult. Updates are noted and appreciated. MRSA bacteremia due to R foot osteo.? Had 04/11/22 bedside I&D of R foot.? Wound culture from 04/11/22 so far with mrsa, corynebacteria, strep, anaerobes.? MRI of right foot showed diffuse osteo of right foot which is also consistent with charcot MRI findings.?She is now on antibiotics including daptomycin and meropenem.?Lumbar MRI neg for osteo/discitis/abscess. Updated HONG neg for veg. Wound care right foot: Iodoform gauze packing with overlying gauze, kerlix, abd pad, and brando dressing - change daily. Wound care left foot: Silver alginate and gauze, kerlix, abd pad, and brando dressing - change daily. No weightbearing bilateral foot. Podiatry will continue to follow while in-house. Medical management per hospitalist and other consulting services is noted and appreciated. [place] nutritional supplementation to optimize healing. Podiatric surgery is not planned at this time. Please do not hesitate to call if you have any questions. Lavern Edgar DPM, [facility] [phone]
[2022-04-22 07:20] LABS: Bedside Glucose 284 mg/dL (74-106)
--- NOTE | 2022-04-22 07:23 | PCM.PN.HOSP ---
Subjective Subjective Adjusted the patient pain medication regimen. HONG was negative for endocarditis. Repeat blood cultures sent on 04/21/2022. Results pending Objective Data Objective Data Vital Signs: Vital Signs Temp Pulse Resp BP Pulse Ox O2 Del Method 97 F L 79 18 138/70 H 97 Room Air 04/22/22 04:41 04/22/22 04:41 04/22/22 04:41 04/22/22 04:41 04/22/22 04:41 04/22/22 04:41 Oxygen Delivery Method Room Air Weight: 93.5 kg Body Mass Index (BMI) 29.0 Intake & Output: Intake and Output for Last 24 Hours 04/20/22 04/21/22 04/22/22 23:59 23:59 23:59 Intake Total 1492.33 / 1492.33 1870 / 1870 Output Total 1050 / 1050 1550 / 1550 200 / 200 Balance 442.33 / 442.33 320 / 320 -200 / -200 Medical Nutrition Assessment Dietitian: Malnutrition Criteria Met Start: 04/12/22 15:13 Freq: Status: Active Protocol: Document 04/16/22 09:36 AG (Rec: 04/16/22 09:37 AG [id number]) Nutrition Malnutrition Evidence of Malnutrition Exists Yes Malnutrition (severe): Acute Illness/Injury Evidenced By Suboptimal Energy Intake ( Severe),Weight Loss (Severe) Intake Problem Increased Nutrient Needs (specify) Etiology increased protein needs related to wounds Signs/Symptoms as evidenced by multiple wounds, DM foot infection to L bottom foot Status Active Problem Inadequate Oral Intake Etiology related to altered mental status Signs/Symptoms as evidenced by estimated PO intake meeting <50% of estimated energy needs x 6 days Status Active Problem Clinical Problem Acute Disease or Injury Related Malnutrition Etiology severe, acute malnutrition related to inadequate energy intake d/t altered mental status Signs/Symptoms as evidenced by unintentional 1.8kg/2% wt loss <1 week; estimated PO intake meeting < 50% of estimated energy needs x 6 days Status Active Problem Recommendation Dietitian Recommendations/Changes recommend regular, no added salt diet given acute malnutrition (texture/ consistency modifications per SUPERVISOR) when PO diet appropriate; resume Ensure Clear 120mL 4x/ day as pt accepting when diet resumed (note Ensure Clear cannot be thickened); Ted BID for wound healing when diet resumed. Lab / Micro Data Result Diagrams: 04/22/22 04:16 04/22/22 04:16 Labs: Laboratory Results - last 24 hr 04/21/22 07:13: POC Glucose 73 L 04/21/22 08:02: POC Glucose 78 04/21/22 10:11: POC Glucose 93 04/21/22 16:36: POC Glucose 157 H 04/21/22 20:57: POC Glucose 266 H 04/22/22 04:16: WBC 16.5 H, RBC 2.78 L, Hgb 7.5 L, Hct 24.6 L, MCV 88.5, MCH 27.0, MCHC 30.5 L, RDW Std Deviation 61.5 H, RDW Coeff of Fior 19.5 H, Plt Count 186, MPV 11.1, Immature Gran % (Auto) 1.100 H, Neut % (Auto) 89.4 H, Lymph % (Auto) 4.3 L, [place] % (Auto) 4.3, Eos % (Auto) 0.7, Baso % (Auto) 0.2, Absolute Neuts (auto) 14.7 H, Absolute Lymphs (auto) 0.70 L, Nucleated RBC % 0 04/22/22 04:16: Sodium 140, Potassium 4.6, Chloride 114 H, Carbon Dioxide 22.0, Anion Gap 4 L, BUN 60 H, Creatinine 2.28 H, Estim Creat Clear Calc 25.79, Est GFR (MDRD) Af Amer 28 L, Est GFR (MDRD) Non-Af 24 L, BUN/Creatinine Ratio 26.3 H, Glucose 299 H, Calcium 7.5 L 04/22/22 06:17: POC Glucose 284 H Micro: Microbiology 04/19/22 13:45 Blood Culture (Wb) - Left Hand Blood Culture - Preliminary No growth in 48 hours. 04/18/22 14:47 Blood Culture (Wb) - Right Wrist Blood Culture - Preliminary Staphylococcus aureus 04/18/22 15:56 Blood Culture (Wb) - Venous Blood Culture - Preliminary Staphylococcus aureus 04/16/22 18:34 Blood Culture (Wb) - Left Wrist Blood Culture - Preliminary Meth. resistant Staph. aureus 04/16/22 18:28 Blood Culture (Wb) - Anticubital Left Blood Culture - Final Staphylococcus aureus 04/13/22 07:30 Blood Culture (Wb) - Anticubital Left Blood Culture - Final Meth. resistant Staph. aureus 04/13/22 07:20 Blood Culture (Wb) - Pic Blood Culture - Final Meth. resistant Staph. aureus 04/09/22 20:51 Wound - Left Foot Gram Stain - Final 04/09/22 20:51 Wound - Left Foot Wound Culture - Final Meth. resistant Staph. aureus Streptococcus mitis/ oralis Corynebacterium striatum 04/09/22 20:51 Wound - Left Foot Anaerobic Culture - Final Prevotella bivia Bacteroides pyogenes 04/11/22 12:30 Wound Abcess - Right Foot Gram Stain - Final 04/11/22 12:30 Wound Abcess - Right Foot Wound Culture - Final Meth. resistant Staph. aureus 04/11/22 12:30 Wound Abcess - Right Foot Anaerobic Culture - Final No anaerobic bacteria isolated. 04/09/22 18:40 Urine, Catheterized Urine Culture - Final Culture exhibits no growth. 04/09/22 17:12 Blood Culture (Wb) - Anticubital Right Blood Culture - Final Staphylococcus aureus 04/09/22 16:50 Blood Culture (Wb) - Anticubital Right Bacteria Detection (PCR) - Final Staphylococcus aureus mecA Resistance Marker 04/09/22 16:50 Blood Culture (Wb) - Anticubital Right Blood Culture - Final Meth. resistant Staph. aureus Radiography Diagnostic Testing: Radiology Impression Transesophageal Echocardiogram 04/21/22 08:15 Interpretation Summary Left ventricular systolic function is normal. The estimated ejection fraction is 55 %. There is no sponatenous contrast in the left atrium. No thrombus is detected in the left atrial appendage. Mild (1+) mitral valve insufficiency. Mild tricuspid valve insufficiency. Trivial pulmonic valve insufficiency. Bubble contrast study negative for right to left interatrial shunt. Comment: No obvious 2D echocardiographic findings considered compatible with findings suspicious for infective endocarditis. Ordering Physician: Kike Tello Referring Physician: MD Raúl Eric Performed By: Geovanna Tate RDCS Rhythm Strip Rhythm Strip: Sinus Rhythm Rate: 60 Ectopy: None Physical Exam Narrative GENERAL: Tearful HEENT: Atraumatic; EYES; Anicteric, Normal Conjunctiva NECK; supple, normal thyroid, RESPIRATORY: Diminished to auscultation CARDIOVASCULAR:? Regular S1 S2, GI:? soft, normoactive bowel sounds, : No Renal angle tenderness; EXTREMITIES: Both lower extremities in surgical dressing MUSCULOSKELETAL:? no muscle wasting NEURO:? Awake;? no lateralizing signs. SKIN:? No Rash PSYCH; depressed Assessment & Plan Assessment/Plan (1) Cellulitis of both lower extremities: (2) Chronic kidney disease, stage 4 (severe): PLAN: Plan Patient is a 56-year-old lady with complicated past medical history including acute on chronic kidney disease stage IV, diabetes mellitus type 2, history of bilateral lower extremity diabetic foot ulcers who presented with septic shock secondary to diabetic foot ulcers with osteomyelitis involving the right foot (cuboid and base of fourth and fifth toes). Patient had MRSA bacteremia 1.? Cellulitis and abscess involving an infected right foot wound, Osteomyelitis involving base of 4th and 5th toesl? right foot secondary to MRSA ? Patient had MRSA bacteremia. Managed with Vanco and cefepime. Consultation was placed to podiatry patient underwent debridement on 04/11/2022 -04/20/2022; Patient still remains bacteremic. MRI ordered by ID did show 1. Osteomyelitis involving the anterior medial aspect of the tarsal navicular, first and second cuneiform tarsal bones, and the cuboid tarsal bone, the base of the second metatarsal, in the proximal third, fourth, and fifth metatarsals. 2.? Adjacent inflammatory soft tissue abnormalities. ?04/22/2022; Adjusted the patient pain medication regimen. HONG was negative for endocarditis. Repeat blood cultures sent on 04/21/2022. Results pending 2.? Staph aureus bacteremia ? secondary to above -04/21/2022 Patient is scheduled to undergo HONG. MRI of the lumbar spine obtained the day prior as part of work-up for her persistent bacteremia failed to show any epidural abscess 3.? Acute kidney injury ?Superimposed on chronic kidney disease stage IV.? Monitoring with daily BMPs nephrology following 4.? Anemia - Secondary to chronic disorder monitoring H&H and transfuse if patient becomes symptomatic or hemoglobin falls below? 7 5.? Diabetes mellitus type II ?With complications including Charcot foot as well as diabetic foot ulcers.? Patient is onlong acting insulin, Accu-Cheks a.c. and at bedtime and covered with sliding scale insulin ? 04/21/2022 patient had hypoglycemic episode 6.? Depression with anxiety ?Patient is on SSRI 7.? Dyslipidemia -Patient is on statin therapy, continued at home dose 8.? Acute metabolic encephalopathy ? Multifactorial including underlying infection as well as pain meds possible SSRI withdrawal 9.? Chronic back pain ?Patient is managed with outpatient epidural steroid injection 10. DVT prophylaxis - Heparin SC 11.? Physical deconditioning - Requested for PT OT eval and social services technician to assist with discharge planning ? 12. Severe acute? malnutrition ? Related to inadequate energy intake d/t altered mental status as evidenced by unintentional 1.8kg/2% wt loss <1 week; estimated PO intake meeting <50% of estimated energy needs x 6 days recommend regular, no added salt diet given acute malnutrition (texture/consistency modifications per SUPERVISOR) when PO diet appropriate; resume Ensure Clear 120mL 4x/day as pt accepting when diet resumed (note Ensure Clear cannot be thickened); Ted BID for wound healing when diet resumed. Charges/Coding Visit Charges Inpatient E&M: 66291 Subs Hosp L2
[2022-04-22] MEDS: Clopidogrel Bisulfate 75 MG Tablet PO (08:08)
[2022-04-22] MEDS: Juven (unflavored) Packet 1 PACKET PO ×2 (08:08→16:41)
[2022-04-22] MEDS: Carvedilol 12.5 MG Tablet PO ×2 (08:09→22:27)
[2022-04-22] MEDS: Lidocaine 5% Patch 2 PATCH TOPICAL (08:09)
[2022-04-22] MEDS: Pantoprazole Sodium 40 MG Tablet PO (08:10)
[2022-04-22] MEDS: Insulin Glargine-YFGN 100 UNIT/ML Pen 30 UNIT SC (08:10)
[2022-04-22] MEDS: Insulin Lispro 100 UNIT/ML INSULN.PEN SC ×2 (08:11→11:22)
[2022-04-22] MEDS: Insulin Lispro 100 UNIT/ML INSULN.PEN 10 UNIT SC ×2 (08:11→11:22)
[2022-04-22 08:19] VITALS: BP 158/77; PULSE 73; RESP 16; TEMP 36.8; O2SAT 99
[2022-04-22 08:36] VITALS: O2SAT 97
--- NOTE | 2022-04-22 08:41 | CASEMGMT ---
Discharge Supervisor Harvesting Yaneli Tejada/wilda Motorcycle Racer called Zoila at [facility] to get an update on insurance approval Zoila did not answer therefore voicemail was left. Will follow up. Yaneli Hammond Discharge Supervisor Harvesting
--- NOTE | 2022-04-22 10:17 | PCM.PN.ID ---
Physical Exam Narrative Feeling ok this AM, no fever, no n/v/d. Const alert and no apparent distress Resp normal air movement and clear to auscultation bilaterally Cardio regular rate and regular rhythm GI soft to palpation, non-tender and non-distended Skin Skin Narrative: no new rash ID ID: Route of nutrition/ use of supplements: [] Nutritional Intake: [] IV Site: [] Tirado Catheter: [] Assessment & Plan Assessment/Plan (1) Chronic kidney disease, stage 4 (severe): (2) FELI (acute kidney injury): (3) Bacteremia: PLAN: MRSA bacteremia due to R foot osteo. Had 04/11/22 bedside I&D of R foot. Wound cx with mrsa, corynebacteria, strep, and anaerobes. TTE at start of stay with no veg. Bcx now neg at almost 72 hours from 04/19. HONG neg for veg. MRI neg for lumbar osteo/discitis/abscess. On dapto and jonel. Will order picc and 8 weeks iv dapto and ertapenem, stop date 06/14/22, weekly labs, ID followup in 2 weeks. Will follow, d/w caseworker protective services (4) Osteomyelitis of metatarsal:
--- NOTE | 2022-04-22 13:22 | PCM.PN.REN ---
Subjective Subjective Sitting in chair. Denies any complaints. No overnight events. Objective Data Objective Data Vital Signs: Vital Signs Temp Pulse Resp BP Pulse Ox O2 Del Method 98.3 F 73 16 158/77 H 97 Room Air 04/22/22 08:19 04/22/22 08:19 04/22/22 08:19 04/22/22 08:19 04/22/22 08:36 04/22/22 08:19 Oxygen Delivery Method Room Air Weight: 93.5 kg Body Mass Index (BMI) 29.0 Intake & Output: Intake and Output for Last 24 Hours 04/20/22 04/21/22 04/22/22 23:59 23:59 23:59 Intake Total 1492.33 / 1492.33 1870 / 1870 648 / 648 Output Total 1050 / 1050 1550 / 1550 200 / 200 Balance 442.33 / 442.33 320 / 320 448 / 448 Medical Nutrition Assessment Dietitian: Malnutrition Criteria Met Start: 04/12/22 15:13 Freq: Status: Active Protocol: Document 04/16/22 09:36 (Rec: 04/16/22 09:37 [id number]) Nutrition Malnutrition Evidence of Malnutrition Exists Yes Malnutrition (severe): Acute Illness/Injury Evidenced By Suboptimal Energy Intake ( Severe),Weight Loss (Severe) Intake Problem Increased Nutrient Needs (specify) Etiology increased protein needs related to wounds Signs/Symptoms as evidenced by multiple wounds, DM foot infection to L bottom foot Status Active Problem Inadequate Oral Intake Etiology related to altered mental status Signs/Symptoms as evidenced by estimated PO intake meeting <50% of estimated energy needs x 6 days Status Active Problem Clinical Problem Acute Disease or Injury Related Malnutrition Etiology severe, acute malnutrition related to inadequate energy intake d/t altered mental status Signs/Symptoms as evidenced by unintentional 1.8kg/2% wt loss <1 week; estimated PO intake meeting < 50% of estimated energy needs x 6 days Status Active Problem Recommendation Dietitian Recommendations/Changes recommend regular, no added salt diet given acute malnutrition (texture/ consistency modifications per SENIOR INFORMATICA DEVELOPER) when PO diet appropriate; resume Ensure Clear 120mL 4x/ day as pt accepting when diet resumed (note Ensure Clear cannot be thickened); Ted BID for wound healing when diet resumed. Lab / Micro Data Result Diagrams: 04/22/22 04:16 04/22/22 04:16 Labs: Laboratory Results - last 24 hr 04/21/22 16:36: POC Glucose 157 H 04/21/22 20:57: POC Glucose 266 H 04/22/22 04:16: WBC 16.5 H, RBC 2.78 L, Hgb 7.5 L, Hct 24.6 L, MCV 88.5, MCH 27.0, MCHC 30.5 L, RDW Std Deviation 61.5 H, RDW Coeff of Fior 19.5 H, Plt Count 186, MPV 11.1, Immature Gran % (Auto) 1.100 H, Neut % (Auto) 89.4 H, Lymph % (Auto) 4.3 L, [place] % (Auto) 4.3, Eos % (Auto) 0.7, Baso % (Auto) 0.2, Absolute Neuts (auto) 14.7 H, Absolute Lymphs (auto) 0.70 L, Nucleated RBC % 0 04/22/22 04:16: Sodium 140, Potassium 4.6, Chloride 114 H, Carbon Dioxide 22.0, Anion Gap 4 L, BUN 60 H, Creatinine 2.28 H, Estim Creat Clear Calc 25.79, Est GFR (MDRD) Af Amer 28 L, Est GFR (MDRD) Non-Af 24 L, BUN/Creatinine Ratio 26.3 H, Glucose 299 H, Calcium 7.5 L 04/22/22 06:17: POC Glucose 284 H Micro: Microbiology 04/16/22 18:34 Blood Culture (Wb) - Left Wrist Blood Culture - Final Meth. resistant Staph. aureus 04/19/22 13:45 Blood Culture (Wb) - Left Hand Blood Culture - Preliminary No growth in 48 hours. 04/18/22 14:47 Blood Culture (Wb) - Right Wrist Blood Culture - Preliminary Staphylococcus aureus 04/18/22 15:56 Blood Culture (Wb) - Venous Blood Culture - Preliminary Staphylococcus aureus 04/16/22 18:28 Blood Culture (Wb) - Anticubital Left Blood Culture - Final Staphylococcus aureus 04/13/22 07:30 Blood Culture (Wb) - Anticubital Left Blood Culture - Final Meth. resistant Staph. aureus 04/13/22 07:20 Blood Culture (Wb) - Pic Blood Culture - Final Meth. resistant Staph. aureus 04/09/22 20:51 Wound - Left Foot Gram Stain - Final 04/09/22 20:51 Wound - Left Foot Wound Culture - Final Meth. resistant Staph. aureus Streptococcus mitis/ oralis Corynebacterium striatum 04/09/22 20:51 Wound - Left Foot Anaerobic Culture - Final Prevotella bivia Bacteroides pyogenes 04/11/22 12:30 Wound Abcess - Right Foot Gram Stain - Final 04/11/22 12:30 Wound Abcess - Right Foot Wound Culture - Final Meth. resistant Staph. aureus 04/11/22 12:30 Wound Abcess - Right Foot Anaerobic Culture - Final No anaerobic bacteria isolated. 04/09/22 18:40 Urine, Catheterized Urine Culture - Final Culture exhibits no growth. 04/09/22 17:12 Blood Culture (Wb) - Anticubital Right Blood Culture - Final Staphylococcus aureus 04/09/22 16:50 Blood Culture (Wb) - Anticubital Right Bacteria Detection (PCR) - Final Staphylococcus aureus mecA Resistance Marker 04/09/22 16:50 Blood Culture (Wb) - Anticubital Right Blood Culture - Final Meth. resistant Staph. aureus Radiography Diagnostic Testing: Radiology Impression Transesophageal Echocardiogram 04/21/22 08:15 Interpretation Summary Left ventricular systolic function is normal. The estimated ejection fraction is 55 %. There is no sponatenous contrast in the left atrium. No thrombus is detected in the left atrial appendage. Mild (1+) mitral valve insufficiency. Mild tricuspid valve insufficiency. Trivial pulmonic valve insufficiency. Bubble contrast study negative for right to left interatrial shunt. Comment: No obvious 2D echocardiographic findings considered compatible with findings suspicious for infective endocarditis. Ordering Physician: Kike Tello Referring Physician: MD Jeaneth Raúl Performed By: Geovanna Tate, ELENI Rhythm Strip Rhythm Strip: Sinus Rhythm Rate: 60 Ectopy: None Physical Exam Narrative General: No apparent distress Neck: Supple Heart: Normal S1, S2. No rubs, murmurs or gallops. RRR Lungs: Clear to auscultation anteriorly. No wheezes, rhonchi, rales noted. Abdominal: Normal bowel sounds, soft Extremities: LE edema. [place] wraps dry and intact to bilateral feet : Indwelling Tirado catheter with clear urine in bag Assessment & Plan Assessment/Plan (1) FELI (acute kidney injury): PLAN: -FELI secondary to ischemic ATN related to septic shock. Patient was oliguric but is now non-oliguric -Serum creatinine 3.3 mg/dL on admission, peaked 4.08 mg/dL on 04/13 and is slowly improving daily with current creatinine 2.28mg/dL today. -Appetite had been very poor, patient was NPO. She had been on IV fluids due to poor appetite/NPO. Renal function improved with IV fluids. -At this time there is no significant uremic symptoms, hyperkalemia, volume overload, or severe acidosis therefore there is no immediate need for kidney replacement therapy -Current medications are reviewed. They are all appropriately dosed for her renal function. -BPs elevated but have improved, we increased coreg 12.5mg bid (home dose 12.5mg bid) -Recheck renal function, volume status, acid-base status and electrolytes tomorrow. - will stop IVF (2) Chronic kidney disease, stage 4 (severe): PLAN: Baseline serum creatinine is around 2.00 to 2.40 mg/dL. The patient has underlying diabetic kidney disease. (3) Metabolic acidosis: PLAN: Suspect her initial acidosis from FELI/CKD along with poor tissue perfusion, patient also received IV NS for volume expansion which can also contribute to non-anion gap metabolic acidosis. There was no ketones on urine dipstick on 04/09/2022. She was having diarrhea which can contribute to acidosis. Serum bicarbonate level has improved, continue sodium bicarbonate orally. Patient and staff report improvement in diarrhea (4) Septic shock: PLAN: Clinically improving. She is no longer on IV vasopressor. Hemodynamically stable today. Septic shock was secondary to cellulitis, diabetic foot infection +MRSA and possibly osteomyelitis. Antimicrobial coverage as per hospitalist and ID. Currently on Ertapenem and dapto MRI right foot showed Osteomyelitis involving the anterior medial aspect of the tarsal navicular, first and second cuneiform tarsal bones, and the cuboid tarsal bone, the base of the second metatarsal, in the proximal third, fourth, and fifth metatarsals. HONG negative for endocarditis, MRI of the lumbar spine did not show any abscess
[2022-04-22 13:30] VITALS: BP 151/68; PULSE 78; RESP 18; TEMP 36.5; O2SAT 99
[2022-04-22 15:11] LABS: Bedside Glucose 256 mg/dL (74-106)
--- NOTE | 2022-04-22 16:51 | NURSING ---
Call from poultry breeder and eta for nurse to place PICC is between [phone]
[2022-04-22 17:05] LABS: Bedside Glucose 61 mg/dL (74-106)
[2022-04-22 18:20] LABS: Bedside Glucose 74 mg/dL (74-106)
[2022-04-22 19:16] LABS: Bedside Glucose 87 mg/dL (74-106)
[2022-04-22 20:00] VITALS: BP 148/84; PULSE 77; RESP 16; TEMP 36.6; O2SAT 98
[2022-04-22] MEDS: Atorvastatin Calcium 80 MG Tablet PO (22:27)
[2022-04-22] MEDS: Paroxetine 20 MG Tablet PO (22:28)
[2022-04-22 22:45] LABS: Bedside Glucose 60 mg/dL (74-106)
[2022-04-22 23:11] LABS: Bedside Glucose 55 mg/dL (74-106)
[2022-04-23 00:16] LABS: Bedside Glucose 65 mg/dL (74-106)
[2022-04-23] MEDS: Dextrose 5%/0.9% NaCl 1,000 ML 60 ML IV (00:34)
[2022-04-23] MEDS: 0.9% Saline Lock 10 ML Syringe IV (00:34)
[2022-04-23 02:00] VITALS: BP 147/74; PULSE 89; RESP 16; TEMP 37.1; O2SAT 97
[2022-04-23] MEDS: oxyCODONE 5 MG Tablet PO ×3 (02:30→16:52)
[2022-04-23 02:35] LABS: Bedside Glucose 59 mg/dL (74-106)
[2022-04-23 04:35] LABS: Bedside Glucose 85 mg/dL (74-106)
[2022-04-23] MEDS: Ondansetron 4 MG/2 ML Vial IV (06:23)
[2022-04-23] MEDS: Menthol/Lanolin/Calamine/Znox 113 GM Tube 1 APPLIC TOPICAL ×3 (06:27→21:45)
[2022-04-23 06:30] LABS: AST(SGOT) 37 U/L (15-37); Alanine Aminotransfer ALT/SGPT 40 U/L (13-56); Albumin, Serum 1.2 g/dL (3.2-5.0); Alkaline Phosphatase 343 U/L (45-117); Anion Gap 4 (5-15); BUN 68 mg/dL (7-18); BUN/Creat Ratio 28.2 RATIO (10-20); Bilirubin, Direct 0.11 mg/dL (0.00-0.30); CPK Total, Creatine Kinase 69 U/L (26-192); Calcium,Total 7.7 mg/dL (8.5-10.1); Chloride 115 mmol/L (98-107); Creatinine, Serum 2.41 mg/dL (0.55-1.02); EST Glomerular Filtration Rate 22 mL/min (>60); Est Glom Filt Rate - Afr Amer 27 mL/min (>60); Globulin 4.8 g/dL (2.2-4.2); Glucose 84 mg/dL (74-106); Potassium 4.7 mmol/L (3.5-5.1); Sodium Level 143 mmol/L (136-145)
[2022-04-23 07:17] LABS: Bedside Glucose 79 mg/dL (74-106)
--- NOTE | 2022-04-23 07:23 | PN.HOSP_ITS ---
Subjective Subjective Patient blood cultures from 04/19/2022 so far negative. Repeat blood cultures from 04/21/2022 pending Objective Data Objective Data Vital Signs: Vital Signs Temp Pulse Resp BP Pulse Ox O2 Del Method 98 F 77 16 148/84 H 98 Room Air 04/22/22 20:00 04/22/22 20:00 04/22/22 20:00 04/22/22 20:00 04/22/22 20:00 04/22/22 20:00 Oxygen Delivery Method Room Air Weight: 96.8 kg Body Mass Index (BMI) 29.0 Intake & Output: Intake and Output for Last 24 Hours 04/21/22 04/22/22 04/23/22 23:59 23:59 23:59 Intake Total 1870 / 1870 1353 / 1353 Output Total 1550 / 1550 700 / 700 0 / 0 Balance 320 / 320 653 / 653 0 / 0 Medical Nutrition Assessment Dietitian: Malnutrition Criteria Met Start: 04/12/22 15:13 Freq: Status: Active Protocol: Document 04/22/22 16:46 AG (Rec: 04/22/22 16:46 AG [id number]) Nutrition Malnutrition Evidence of Malnutrition Exists No Intake Problem Increased Nutrient Needs (specify) Etiology increased protein needs related to wounds Signs/Symptoms as evidenced by multiple wounds, DM foot infection to L bottom foot Status Active Problem Inadequate Oral Intake Etiology related to altered mental status Signs/Symptoms as evidenced by estimated PO intake meeting <50% of estimated energy needs >1 week Status Resolved Problem Clinical Problem Acute Disease or Injury Related Malnutrition Etiology severe, acute malnutrition related to inadequate energy intake d/t altered mental status Signs/Symptoms as evidenced by unintentional 1.8kg/2% wt loss <1 week; estimated PO intake meeting < 50% of estimated energy needs x 6 days Status Resolved Problem Recommendation Dietitian Recommendations/Changes will change diet to cardiac, CHO controlled given improved PO intake and hyperglycemia ( texture/consistency modifications per OR SCRUB TECH); Ted BID for wounds Lab / Micro Data Result Diagrams: 04/22/22 04:16 04/23/22 05:53 Labs: Laboratory Results - last 24 hr 04/22/22 11:21: POC Glucose 256 H 04/22/22 16:43: POC Glucose 61 L 04/22/22 17:49: POC Glucose 74 04/22/22 18:56: POC Glucose 87 04/22/22 22:24: POC Glucose 60 L 04/22/22 22:48: POC Glucose 55 L 04/22/22 23:40: POC Glucose 65 L 04/23/22 02:08: POC Glucose 59 L 04/23/22 03:45: POC Glucose 85 04/23/22 05:53: Sodium 143, Potassium 4.7, Chloride 115 H, Carbon Dioxide 24.0, Anion Gap 4 L, BUN 68 H, Creatinine 2.41 H, Estim Creat Clear Calc 24.40, Est GFR (MDRD) Af Amer 27 L, Est GFR (MDRD) Non-Af 22 L, BUN/Creatinine Ratio 28.2 H , Glucose 84, Calcium 7.7 L, Total Bilirubin 0.20, Direct Bilirubin 0.11, AST 37, ALT 40, Alkaline Phosphatase 343 H, Total Creatine Kinase 69, Total Protein 6.0 L, Albumin 1.2 L, Globulin 4.8 H 04/23/22 06:21: POC Glucose 79 Micro: Microbiology 04/16/22 18:34 Blood Culture (Wb) - Left Wrist Blood Culture - Final Meth. resistant Staph. aureus 04/19/22 13:45 Blood Culture (Wb) - Left Hand Blood Culture - Preliminary No growth in 48 hours. 04/18/22 14:47 Blood Culture (Wb) - Right Wrist Blood Culture - Preliminary Staphylococcus aureus 04/18/22 15:56 Blood Culture (Wb) - Venous Blood Culture - Preliminary Staphylococcus aureus 04/16/22 18:28 Blood Culture (Wb) - Anticubital Left Blood Culture - Final Staphylococcus aureus 04/13/22 07:30 Blood Culture (Wb) - Anticubital Left Blood Culture - Final Meth. resistant Staph. aureus 04/13/22 07:20 Blood Culture (Wb) - Pic Blood Culture - Final Meth. resistant Staph. aureus 04/09/22 20:51 Wound - Left Foot Gram Stain - Final 04/09/22 20:51 Wound - Left Foot Wound Culture - Final Meth. resistant Staph. aureus Streptococcus mitis/ oralis Corynebacterium striatum 04/09/22 20:51 Wound - Left Foot Anaerobic Culture - Final Prevotella bivia Bacteroides pyogenes 04/11/22 12:30 Wound Abcess - Right Foot Gram Stain - Final 04/11/22 12:30 Wound Abcess - Right Foot Wound Culture - Final Meth. resistant Staph. aureus 04/11/22 12:30 Wound Abcess - Right Foot Anaerobic Culture - Final No anaerobic bacteria isolated. 04/09/22 18:40 Urine, Catheterized Urine Culture - Final Culture exhibits no growth. 04/09/22 17:12 Blood Culture (Wb) - Anticubital Right Blood Culture - Final Staphylococcus aureus 04/09/22 16:50 Blood Culture (Wb) - Anticubital Right Bacteria Detection (PCR) - Final Staphylococcus aureus mecA Resistance Marker 04/09/22 16:50 Blood Culture (Wb) - Anticubital Right Blood Culture - Final Meth. resistant Staph. aureus Rhythm Strip Rhythm Strip: Sinus Rhythm Rate: 60 Ectopy: None Physical Exam Narrative GENERAL: Tearful HEENT: Atraumatic; EYES; Anicteric, Normal Conjunctiva NECK; supple, normal thyroid, RESPIRATORY: Diminished to auscultation CARDIOVASCULAR:? Regular S1 S2, GI:? soft, normoactive bowel sounds, : No Renal angle tenderness; EXTREMITIES: Both lower extremities in surgical dressing MUSCULOSKELETAL:? no muscle wasting NEURO:? Awake;? no lateralizing signs. SKIN:? No Rash PSYCH; depressed Assessment & Plan Assessment/Plan (1) Cellulitis of both lower extremities: (2) Chronic kidney disease, stage 4 (severe): PLAN: Plan Patient is a 56-year-old lady with complicated past medical history including acute on chronic kidney disease stage IV, diabetes mellitus type 2, history of bilateral lower extremity diabetic foot ulcers who presented with septic shock secondary to diabetic foot ulcers with osteomyelitis involving the right foot (cuboid and base of fourth and fifth toes). Patient had MRSA bacteremia 1.? Cellulitis and abscess involving an infected right foot wound, Osteomyelitis involving base of 4th and 5th toesl? right foot secondary to MRSA ? Patient had MRSA bacteremia. Managed with Vanco and cefepime. Consultation was placed to podiatry patient underwent debridement on 04/11/2022 -04/20/2022; Patient still remains bacteremic. MRI ordered by ID did show 1. Osteomyelitis involving the anterior medial aspect of the tarsal navicular, first and second cuneiform tarsal bones, and the cuboid tarsal bone, the base of the second metatarsal, in the proximal third, fourth, and fifth metatarsals. 2.? Adjacent inflammatory soft tissue abnormalities. ?04/22/2022; Adjusted the patient pain medication regimen. HONG was negative for endocarditis. Repeat blood cultures sent on 04/21/2022. Results pending 2.? Staph aureus bacteremia ? secondary to above -04/21/2022 Patient is scheduled to undergo HONG. MRI of the lumbar spine obtained the day prior as part of work-up for her persistent bacteremia failed to show any epidural abscess -04/23/2022; cultures from 04/19/2022 negative. Data obtained from 04/21/2022 still pending 3.? Acute kidney injury ?Superimposed on chronic kidney disease stage IV.? Monitoring with daily BMPs nephrology following 4.? Anemia - Secondary to chronic disorder monitoring H&H and transfuse if patient becomes symptomatic or hemoglobin falls below? 7 5.? Diabetes mellitus type II ?With complications including Charcot foot as well as diabetic foot ulcers.? Patient is onlong acting insulin, Accu-Cheks a.c. and at bedtime and covered with sliding scale insulin ? 04/21/2022 patient had hypoglycemic episode 6.? Depression with anxiety ?Patient is on SSRI 7.? Dyslipidemia -Patient is on statin therapy, continued at home dose 8.? Acute metabolic encephalopathy ? Multifactorial including underlying infection as well as pain meds possible SSRI withdrawal 9.? Chronic back pain ?Patient is managed with outpatient epidural steroid injection 10. DVT prophylaxis - Heparin SC 11.? Physical deconditioning - Requested for PT OT eval and healthcare social worker to assist with discharge planning ? 12. Severe acute? malnutrition ? Related to inadequate energy intake d/t altered mental status as evidenced by unintentional 1.8kg/2% wt loss <1 week; estimated PO intake meeting <50% of estimated energy needs x 6 days recommend regular, no added salt diet given acute malnutrition (texture/consistency modifications per OR SCRUB TECH) when PO diet appropriate; resume Ensure Clear 120mL 4x/day as pt accepting when diet resumed (note Ensure Clear cannot be thickened); Ted BID for wound healing when diet resumed. Charges/Coding Visit Charges Inpatient E&M: 27083 Subs Hosp L2
[2022-04-23 08:00] VITALS: BP 149/78; PULSE 79; RESP 16; TEMP 36.7; O2SAT 97
[2022-04-23] MEDS: Sodium Bicarbonate 650 MG Tablet 1300 MG PO ×3 (08:51→21:42)
[2022-04-23] MEDS: Juven (unflavored) Packet 1 PACKET PO ×2 (08:52→17:18)
[2022-04-23] MEDS: Carvedilol 12.5 MG Tablet PO ×2 (08:53→21:42)
[2022-04-23] MEDS: Clopidogrel Bisulfate 75 MG Tablet PO (08:55)
[2022-04-23] MEDS: Pantoprazole Sodium 40 MG Tablet PO (08:55)
--- NOTE | 2022-04-23 09:24 | PCM.PN.REN ---
Subjective Subjective Sitting up in chair, eating breakfast. Denies any nausea or vomiting. Denies any diarrhea. No overnight events Objective Data Objective Data Vital Signs: Vital Signs Temp Pulse Resp BP Pulse Ox O2 Del Method 98.1 F 79 16 149/78 H 97 Room Air 04/23/22 08:00 04/23/22 08:00 04/23/22 08:00 04/23/22 08:00 04/23/22 08:00 04/23/22 08:00 Oxygen Delivery Method Room Air Weight: 96.8 kg Body Mass Index (BMI) 29.0 Intake & Output: Intake and Output for Last 24 Hours 04/21/22 04/22/22 04/23/22 23:59 23:59 23:59 Intake Total 1870 / 1870 1353 / 1353 Output Total 1550 / 1550 700 / 700 0 / 0 Balance 320 / 320 653 / 653 0 / 0 Medical Nutrition Assessment Dietitian: Malnutrition Criteria Met Start: 04/12/22 15:13 Freq: Status: Active Protocol: Document 04/22/22 16:46 AG (Rec: 04/22/22 16:46 AG [id number]) Nutrition Malnutrition Evidence of Malnutrition Exists No Intake Problem Increased Nutrient Needs (specify) Etiology increased protein needs related to wounds Signs/Symptoms as evidenced by multiple wounds, DM foot infection to L bottom foot Status Active Problem Inadequate Oral Intake Etiology related to altered mental status Signs/Symptoms as evidenced by estimated PO intake meeting <50% of estimated energy needs >1 week Status Resolved Problem Clinical Problem Acute Disease or Injury Related Malnutrition Etiology severe, acute malnutrition related to inadequate energy intake d/t altered mental status Signs/Symptoms as evidenced by unintentional 1.8kg/2% wt loss <1 week; estimated PO intake meeting < 50% of estimated energy needs x 6 days Status Resolved Problem Recommendation Dietitian Recommendations/Changes will change diet to cardiac, CHO controlled given improved PO intake and hyperglycemia ( texture/consistency modifications per CONFIGURATION MANAGEMENT ANALYST); Ted BID for wounds Lab / Micro Data Result Diagrams: 04/22/22 04:16 04/23/22 05:53 Labs: Laboratory Results - last 24 hr 04/22/22 11:21: POC Glucose 256 H 04/22/22 16:43: POC Glucose 61 L 04/22/22 17:49: POC Glucose 74 04/22/22 18:56: POC Glucose 87 04/22/22 22:24: POC Glucose 60 L 04/22/22 22:48: POC Glucose 55 L 04/22/22 23:40: POC Glucose 65 L 04/23/22 02:08: POC Glucose 59 L 04/23/22 03:45: POC Glucose 85 04/23/22 05:53: Sodium 143, Potassium 4.7, Chloride 115 H, Carbon Dioxide 24.0, Anion Gap 4 L, BUN 68 H, Creatinine 2.41 H, Estim Creat Clear Calc 24.40, Est GFR (MDRD) Af Amer 27 L, Est GFR (MDRD) Non-Af 22 L, BUN/Creatinine Ratio 28.2 H, Glucose 84, Calcium 7.7 L, Total Bilirubin 0.20, Direct Bilirubin 0.11, AST 37, ALT 40, Alkaline Phosphatase 343 H, Total Creatine Kinase 69, Total Protein 6.0 L, Albumin 1.2 L, Globulin 4.8 H 04/23/22 06:21: POC Glucose 79 Micro: Microbiology 04/21/22 14:37 Blood Culture (Wb) - Anticubital Right Blood Culture - Preliminary No growth in 48 hours. 04/16/22 18:34 Blood Culture (Wb) - Left Wrist Blood Culture - Final Meth. resistant Staph. aureus 04/19/22 13:45 Blood Culture (Wb) - Left Hand Blood Culture - Preliminary No growth in 48 hours. 04/18/22 14:47 Blood Culture (Wb) - Right Wrist Blood Culture - Preliminary Staphylococcus aureus 04/18/22 15:56 Blood Culture (Wb) - Venous Blood Culture - Preliminary Staphylococcus aureus 04/16/22 18:28 Blood Culture (Wb) - Anticubital Left Blood Culture - Final Staphylococcus aureus 04/13/22 07:30 Blood Culture (Wb) - Anticubital Left Blood Culture - Final Meth. resistant Staph. aureus 04/13/22 07:20 Blood Culture (Wb) - Pic Blood Culture - Final Meth. resistant Staph. aureus 04/09/22 20:51 Wound - Left Foot Gram Stain - Final 04/09/22 20:51 Wound - Left Foot Wound Culture - Final Meth. resistant Staph. aureus Streptococcus mitis/ oralis Corynebacterium striatum 04/09/22 20:51 Wound - Left Foot Anaerobic Culture - Final Prevotella bivia Bacteroides pyogenes 04/11/22 12:30 Wound Abcess - Right Foot Gram Stain - Final 04/11/22 12:30 Wound Abcess - Right Foot Wound Culture - Final Meth. resistant Staph. aureus 04/11/22 12:30 Wound Abcess - Right Foot Anaerobic Culture - Final No anaerobic bacteria isolated. 04/09/22 18:40 Urine, Catheterized Urine Culture - Final Culture exhibits no growth. 04/09/22 17:12 Blood Culture (Wb) - Anticubital Right Blood Culture - Final Staphylococcus aureus 04/09/22 16:50 Blood Culture (Wb) - Anticubital Right Bacteria Detection (PCR) - Final Staphylococcus aureus mecA Resistance Marker 04/09/22 16:50 Blood Culture (Wb) - Anticubital Right Blood Culture - Final Meth. resistant Staph. aureus Rhythm Strip Rhythm Strip: Sinus Rhythm Rate: 60 Ectopy: None Physical Exam Narrative General: No apparent distress Neck: Supple Heart: Normal S1, S2. No rubs, murmurs or gallops. RRR Lungs: Clear to auscultation. No wheezes, rhonchi, rales noted. Abdominal: Normal bowel sounds, soft Extremities: 1+ b/l LE edema. [place] wraps dry and intact to bilateral feet : Indwelling Tirado catheter with clear urine in bag Assessment & Plan Assessment/Plan (1) FELI (acute kidney injury): PLAN: -FELI secondary to ischemic ATN related to septic shock. Patient was oliguric but is now non-oliguric -Serum creatinine 3.3 mg/dL on admission, peaked 4.08 mg/dL on 04/13 and improved daily. Patient did not need SHOPPING INSPECTOR. Renal function improved with IVF; creatinine 2.4mg/dL today. -Appetite had been very poor and patient was NPO for a few days. She had been on IV fluids due to poor appetite/NPO. Renal function improved with IV fluids. -At this time there is no significant uremic symptoms, hyperkalemia or severe acidosis therefore there is no acute need for kidney replacement therapy -Current medications are reviewed. They are all appropriately dosed for her renal function. -BPs elevated but have improved, we increased coreg 12.5mg bid (home dose 12.5mg bid) -Recheck renal function, volume status, acid-base status and electrolytes tomorrow. -patient has developed some LE edema, we will stop IVF. She has been having low blood sugars and was started on IVF during the night. Insulin to be adjusted. Encouraged patient to increase solute intake (2) Chronic kidney disease, stage 4 (severe): PLAN: Baseline serum creatinine is around 2.00 to 2.40 mg/dL. The patient has underlying diabetic kidney disease. (3) Metabolic acidosis: PLAN: Suspect her initial acidosis from FELI/CKD along with poor tissue perfusion, patient also received IV NS for volume expansion which can also contribute to non-anion gap metabolic acidosis. There was no ketones on urine dipstick on 04/09/2022. She was having diarrhea which can contribute to acidosis. Serum bicarbonate level has improved, continue sodium bicarbonate orally. Patient and staff report improvement in diarrhea (4) Septic shock: PLAN: Clinically improving. She is no longer on IV vasopressor. Hemodynamically stable today. Septic shock was secondary to cellulitis, diabetic foot infection +MRSA and possibly osteomyelitis. BC from 04/19 no growth, BC from 04/21 so far no growth Antimicrobial coverage as per hospitalist and ID. Currently on Ertapenem and dapto MRI right foot showed Osteomyelitis involving the anterior medial aspect of the tarsal navicular, first and second cuneiform tarsal bones, and the cuboid tarsal bone, the base of the second metatarsal, in the proximal third, fourth, and fifth metatarsals. HONG negative for endocarditis, MRI of the lumbar spine did not show any absces discharge planning in progress. Ok for discharge per renal when cleared by primary team and patient to follow-up with nephrology.
--- NOTE | 2022-04-23 10:01 | CASEMGMT ---
Discharge Clinical Business Manager D/c Network Relations Consultant reached out to Zoila at [facility]. Zoila has not heard from insurance yet. Zoila was going to reach out to insurance and try and get an update. Will follow up. Yaneli Hammond Discharge Clinical Business Manager
--- NOTE | 2022-04-23 11:29 | CASEMGMT ---
Discharge Wild Life Photographer Zoila from [facility] and Insurance were on a phone call together asking about the IV medications and the stop dates. Insurance has been updated and are going to continue to review. Yaneli Hammond Discharge Wild Life Photographer
[2022-04-23 11:31] LABS: Bedside Glucose 117 mg/dL (74-106)
--- NOTE | 2022-04-23 11:45 | CASEMGMT ---
Discharge Relay Shop Supervisor [employer]ila [employer] reached out. Meera the insurance rep is looking to speak to someone in regards to the patient. Meera phone number is [phone]. LUCRETIA Sellers has been notified and will be handling. Yaneli Hammond Discharge Relay Shop Supervisor
--- NOTE | 2022-04-23 12:49 | CASEMGMT ---
Social Work VM left with Meera at [employer] who has requested to talk to provider at hospital prior to making decision for precertification for SNF stay at [facility]. Will await return call ERIN Masters
[2022-04-23 14:00] VITALS: BP 151/79; PULSE 85; RESP 18; TEMP 36.6; O2SAT 97
--- NOTE | 2022-04-23 14:34 | CASEMGMT ---
Social Work Second phone call placed to [employer] Guidance Counselor with no answer. LUCRETIA attempted to call pt dgt Trisha x2 with no answer and VM that is not set up. LUCRETIA asked pt what she believes to be the discharge plan. Pt states she plans to go to [facility] at discharge. SW explained that [facility] has not given precert yet and are questioning need for Skilled level of care. SW spoke to pt regarding alternate discharge plan. Pt lives at home alone and her daughter works. SW explained that pt is not safe to be alone as she is non weightbearing on bilateral LE. Pt cannot provide own ADLS, will need IV ATB, wound care and Blood Sugar monitoring. Pt failed at home. She was at SNF and left, pt was home 6 days and returned to hospital. SW explained that if [facility] declines she can go to SNF under [employer], but will have a $1020 per month liability. Pt is upset because this amount is most of her income. SW explained that this is requirement of [facility]. Pt now stating that if [facility] doesn't cover the cost she can return home. Pt states her son and his girlfriend will help her. SW reminded pt she will need 24 hour hands on care along with IV ATBs and wound care and it may not be reasonable to expect her son to do this. LUCRETIA will await determination from [facility] prior to finalizing discharge plans. Plan: [facility], pending precert from [employer] ERIN Masters
--- NOTE | 2022-04-23 16:02 | PCM.PROGNOTE ---
Subjective Subjective This is a 56-year-old female who is seen for follow-up of bilateral foot wounds. She is seen bedside today. She states her insurance will not pay for SNF. She also states that her left foot does not feel quite right and is weak. She denies constitutional symptoms. She she does answer questions but is slow to respond and feels a bit confused. She denies any further complaints. Objective Data Objective Data Vital Signs: Vital Signs Temp Pulse Resp BP Pulse Ox O2 Del Method 97.9 F 85 18 151/79 H 97 Room Air 04/23/22 14:00 04/23/22 14:00 04/23/22 14:00 04/23/22 14:00 04/23/22 14:00 04/23/22 14:00 Oxygen Delivery Method Room Air Weight: 96.8 kg Body Mass Index (BMI) 29.0 Intake & Output: Intake and Output for Last 24 Hours 04/21/22 04/22/22 04/23/22 23:59 23:59 23:59 Intake Total 1870 / 1870 1353 / 1353 1139 / 1139 Output Total 1550 / 1550 700 / 700 100 / 100 Balance 320 / 320 653 / 653 1039 / 1039 Medical Nutrition Assessment Dietitian: Malnutrition Criteria Met Start: 04/12/22 15:13 Freq: Status: Active Protocol: Document 04/22/22 16:46 AG (Rec: 04/22/22 16:46 AG [id number]) Nutrition Malnutrition Evidence of Malnutrition Exists No Intake Problem Increased Nutrient Needs (specify) Etiology increased protein needs related to wounds Signs/Symptoms as evidenced by multiple wounds, DM foot infection to L bottom foot Status Active Problem Inadequate Oral Intake Etiology related to altered mental status Signs/Symptoms as evidenced by estimated PO intake meeting <50% of estimated energy needs >1 week Status Resolved Problem Clinical Problem Acute Disease or Injury Related Malnutrition Etiology severe, acute malnutrition related to inadequate energy intake d/t altered mental status Signs/Symptoms as evidenced by unintentional 1.8kg/2% wt loss <1 week; estimated PO intake meeting < 50% of estimated energy needs x 6 days Status Resolved Problem Recommendation Dietitian Recommendations/Changes will change diet to cardiac, CHO controlled given improved PO intake and hyperglycemia ( texture/consistency modifications per DEMOLITION ENGINEER); Ted BID for wounds Lab / Micro Data Result Diagrams: 04/22/22 04:16 04/23/22 05:53 Labs: Laboratory Results - last 24 hr 04/22/22 16:43: POC Glucose 61 L 04/22/22 17:49: POC Glucose 74 04/22/22 18:56: POC Glucose 87 04/22/22 22:24: POC Glucose 60 L 04/22/22 22:48: POC Glucose 55 L 04/22/22 23:40: POC Glucose 65 L 04/23/22 02:08: POC Glucose 59 L 04/23/22 03:45: POC Glucose 85 04/23/22 05:53: Sodium 143, Potassium 4.7, Chloride 115 H, Carbon Dioxide 24.0, Anion Gap 4 L, BUN 68 H, Creatinine 2.41 H, Estim Creat Clear Calc 24.40, Est GFR (MDRD) Af Amer 27 L, Est GFR (MDRD) Non-Af 22 L, BUN/Creatinine Ratio 28.2 H, Glucose 84, Calcium 7.7 L, Total Bilirubin 0.20, Direct Bilirubin 0.11, AST 37, ALT 40, Alkaline Phosphatase 343 H, Total Creatine Kinase 69, Total Protein 6.0 L, Albumin 1.2 L, Globulin 4.8 H 04/23/22 06:21: POC Glucose 79 04/23/22 11:10: POC Glucose 117 H Micro: Microbiology 04/21/22 14:37 Blood Culture (Wb) - Anticubital Right Blood Culture - Preliminary No growth in 48 hours. 04/16/22 18:34 Blood Culture (Wb) - Left Wrist Blood Culture - Final Meth. resistant Staph. aureus 04/19/22 13:45 Blood Culture (Wb) - Left Hand Blood Culture - Preliminary No growth in 48 hours. 04/18/22 14:47 Blood Culture (Wb) - Right Wrist Blood Culture - Preliminary Staphylococcus aureus 04/18/22 15:56 Blood Culture (Wb) - Venous Blood Culture - Preliminary Staphylococcus aureus 04/16/22 18:28 Blood Culture (Wb) - Anticubital Left Blood Culture - Final Staphylococcus aureus 04/13/22 07:30 Blood Culture (Wb) - Anticubital Left Blood Culture - Final Meth. resistant Staph. aureus 04/13/22 07:20 Blood Culture (Wb) - Pic Blood Culture - Final Meth. resistant Staph. aureus 04/09/22 20:51 Wound - Left Foot Gram Stain - Final 04/09/22 20:51 Wound - Left Foot Wound Culture - Final Meth. resistant Staph. aureus Streptococcus mitis/ oralis Corynebacterium striatum 04/09/22 20:51 Wound - Left Foot Anaerobic Culture - Final Prevotella bivia Bacteroides pyogenes 04/11/22 12:30 Wound Abcess - Right Foot Gram Stain - Final 04/11/22 12:30 Wound Abcess - Right Foot Wound Culture - Final Meth. resistant Staph. aureus 04/11/22 12:30 Wound Abcess - Right Foot Anaerobic Culture - Final No anaerobic bacteria isolated. 04/09/22 18:40 Urine, Catheterized Urine Culture - Final Culture exhibits no growth. 04/09/22 17:12 Blood Culture (Wb) - Anticubital Right Blood Culture - Final Staphylococcus aureus 04/09/22 16:50 Blood Culture (Wb) - Anticubital Right Bacteria Detection (PCR) - Final Staphylococcus aureus mecA Resistance Marker 04/09/22 16:50 Blood Culture (Wb) - Anticubital Right Blood Culture - Final Meth. resistant Staph. aureus Rhythm Strip Rhythm Strip: Sinus Rhythm Rate: 60 Ectopy: None Physical Exam Const alert Extremity normal capillary refill and no calf tenderness Extremity Narrative: Left foot: Ulceration plantar lateral midfoot foot down to fascia tissue - healing - no probe to bone - tissues are healthy and viable with no evidence of infection - no drainage, no maloder, no erythema, no necrosis, no visible abscess; no other open lesions, no evidence of ischemia to the foot or ankle, CFT < 2 seconds to all toes, no edema. Right foot: Ulceration to the lateral midfoot probes to bone, there is no cellulitis, no erythema, no edema, no maloder, no necrosis, no visible abscess, there is no drainage today. No other open lesions, no erythema, no necrosis, no visible abscess; no evidence of ischemia to the foot or ankle, CFT < 2 seconds to all toes, no edema. There is no POP or pain on ROM to the foot or ankle bilateral. She has weakness with active range of motion of the left ankle and toes which actually is consistent with prior exams (4/5 all directions). Lack of epicritic sensation bilateral lower extremities is also consistent with her neuropathic status. Bilateral rocker-bottom Charcot foot deformities are noted without acute laxity or shape change compared to prior visits Assessment & Plan Assessment/Plan (1) Diabetic foot ulcers: (2) Diabetes mellitus with diabetic polyneuropathy: (3) Charcot's joint, right ankle and foot: (4) Osteomyelitis of metatarsal: (5) Non-pressure chronic ulcer of other part of left foot with fat layer exposed: (6) Chronic ulcer of right foot with necrosis of bone: PLAN: Plan Patient seen and evaluated. Reviewed diagnostic data. Vitals are stable and she is afebrile this afternoon. She still has white blood cell count elevation; currently at 16.5. Patient with 4th/5th metatarsal and cuboid osteomyelitis and Charcot foot- clinically the right and left foot with no cellulitis, no drainage, no malodor, no visible abscess and is clinically stable at this time. Left foot ulceration granulating in well, no signs of infection and no longer probes to bone. To continue with antibiotics and local wound care - ID service is on consult. Updates are noted and appreciated. MRSA bacteremia due to R foot osteo.? Had 04/11/22 bedside I&D of R foot.? Wound culture from 04/11/22 so far with MRSA, corynebacteria, strep, anaerobes.? MRI of right foot showed diffuse osteo of right foot which is also consistent with Charcot MRI findings.?She is now on antibiotics including daptomycin and meropenem.?Lumbar MRI neg for osteo/discitis/abscess. Updated HONG neg for veg. Wound care right foot: Iodoform gauze packing with overlying gauze, kerlix, ABD pad, and brando dressing - change daily. Wound care left foot: Silver alginate and gauze, kerlix, ABD pad, and brando dressing - change daily. Patient is to remain non-weightbearing to bilateral foot with wheelchair assistance. Awaiting SNF placement pending insurance. Podiatry will continue to follow while in-house. Medical management per hospitalist and other consulting services is noted and appreciated. To continue nutritional supplementation to optimize healing. Podiatric surgery is not planned at this time. Please do not hesitate to call if you have any questions. Jr. Terrell Wise.P.. [facility] [phone] Note: [employer] speech recognition rubber stamp die inspector software was used to create portions of this document. Sound-alike and misspelled words, as well as other rubber stamp die inspector errors may be contained in the documentation.
--- NOTE | 2022-04-23 16:35 | CASEMGMT ---
Social Work Third phone call to Aysha and LUCRETIA spoke with Karissa Baron [phone]. Karissa states Case went to MD review and MD denied SNF stay. SW re explained need for IV ATB and medical skillable need and that pt lives at home alone. Karissa spoke with and returned call to this SW stating MD has decided to approve SNF stay. Karissa states she will email [facility] after she hangs up with the approval information. Phone call and VM left with Zoila at [facility] informing of conversation with Karissa at [facility]. SW requesting [facility] call [facility] for directly when they receive authorization and are able to accept pt. SW met with pt and informed that [facility] has approved stay at [facility] and d/c will be determined when [facility] calls with official authorization from insurance. Pt is agreeable to go to [facility] under her [facility] benefit. Phone call to pt alejandra Rico and explained above. SW also explained that [facility] payment will be short term and pt may have to consider staying at [facility] long distance operator due to multiple medical issues. SW explained [employer] coverage to and pt liability to Trisha. Plan: [facility], Skilled level of care under convalescent stay. Patient CANNOT discharge until [facility] calls [facility] with official insurance authorization. ERIN Masters
[2022-04-23] MEDS: Insulin Lispro 100 UNIT/ML INSULN.PEN SC ×2 (16:53→21:44)
[2022-04-23 17:20] LABS: Bedside Glucose 160 mg/dL (74-106)
[2022-04-23 20:00] VITALS: BP 154/80; PULSE 87; RESP 16; TEMP 36.9; O2SAT 97
[2022-04-23] MEDS: Nystatin Powder 15gm Bottle 1 APPLIC TOPICAL (21:40)
[2022-04-23] MEDS: Atorvastatin Calcium 80 MG Tablet PO (21:42)
[2022-04-23] MEDS: Paroxetine 20 MG Tablet PO (21:42)
--- NOTE | 2022-04-23 21:46 | CM.ED ---
SW Note SW received update from ELIE Kohli, stating that patient was approved for SNF placement but SHE HAS to leave within 48 hours or the precert will . LUCRETIA called TAINA Francis Charge and updated her. Penny said that she updated MD Barakat regarding patient and the plan is for the patient to be discharged tomorrow as the SNF MD paperwork has not been completed and day shift can complete the paperwork tomorrow. Sabine CANO
--- NOTE | 2022-04-23 21:51 | EKG12_ITS ---
Test Reason : Blood Pressure : / mmHG Vent. Rate : 081 BPM Atrial Rate : 081 BPM P-R Int : 144 ms QRS Dur : 084 ms QT Int : 368 ms P-R-T Axes : 047 019 136 degrees QTc Int : 427 ms Normal sinus rhythm Nonspecific T wave abnormality Abnormal ECG When compared with ECG of 09-APR-2022 17:14, Vent. rate has decreased BY 45 BPM Confirmed by OTTO DELVALLE, DOMINIQUE ([id number]), fashion editor HARINI PHAM ([id number]) on 05/04/2022 11:15:36 AM Referred By: SANDIE Confirmed By:DOMINIQUE MENJIVAR MD
[2022-04-23 22:06] LABS: Bedside Glucose 159 mg/dL (74-106)
[2022-04-23] MEDS: Morphine 2 MG/ML Syringe 1 MG IV (22:34)
[2022-04-24] MEDS: oxyCODONE 5 MG Tablet PO ×3 (00:02→12:19)
[2022-04-24 02:30] VITALS: BP 142/71; PULSE 83; RESP 16; TEMP 36.7; O2SAT 98
[2022-04-24] MEDS: Sodium Bicarbonate 650 MG Tablet 1300 MG PO (06:19)
[2022-04-24] MEDS: Menthol/Lanolin/Calamine/Znox 113 GM Tube 1 APPLIC TOPICAL (06:20)
[2022-04-24 07:05] LABS: Bedside Glucose 129 mg/dL (74-106)
--- NOTE | 2022-04-24 07:27 | PCM.PN.HOSP ---
Subjective Subjective Patient seen insurance precertification has been obtained plan is for patient to be discharged to a intermediate facility Objective Data Objective Data Vital Signs: Vital Signs Temp Pulse Resp BP Pulse Ox O2 Del Method 98.1 F 83 16 142/71 H 98 Room Air 04/24/22 02:30 04/24/22 02:30 04/24/22 02:30 04/24/22 02:30 04/24/22 02:30 04/24/22 02:30 Oxygen Delivery Method Room Air Weight: 98.1 kg Body Mass Index (BMI) 29.0 Intake & Output: Intake and Output for Last 24 Hours 04/22/22 04/23/22 04/24/22 23:59 23:59 23:59 Intake Total 1353 / 1353 1259 / 1259 Output Total 700 / 700 300 / 300 Balance 653 / 653 959 / 959 Medical Nutrition Assessment Dietitian: Malnutrition Criteria Met Start: 04/12/22 15:13 Freq: Status: Active Protocol: Document 04/22/22 16:46 AG (Rec: 04/22/22 16:46 AG [id number]) Nutrition Malnutrition Evidence of Malnutrition Exists No Intake Problem Increased Nutrient Needs (specify) Etiology increased protein needs related to wounds Signs/Symptoms as evidenced by multiple wounds, DM foot infection to L bottom foot Status Active Problem Inadequate Oral Intake Etiology related to altered mental status Signs/Symptoms as evidenced by estimated PO intake meeting <50% of estimated energy needs >1 week Status Resolved Problem Clinical Problem Acute Disease or Injury Related Malnutrition Etiology severe, acute malnutrition related to inadequate energy intake d/t altered mental status Signs/Symptoms as evidenced by unintentional 1.8kg/2% wt loss <1 week; estimated PO intake meeting < 50% of estimated energy needs x 6 days Status Resolved Problem Recommendation Dietitian Recommendations/Changes will change diet to cardiac, CHO controlled given improved PO intake and hyperglycemia ( texture/consistency modifications per MATE FISHING VESSEL); Ted BID for wounds Lab / Micro Data Result Diagrams: 04/22/22 04:16 04/23/22 05:53 Labs: Laboratory Results - last 24 hr 04/23/22 11:10: POC Glucose 117 H 04/23/22 16:52: POC Glucose 160 H 04/23/22 21:40: POC Glucose 159 H 04/24/22 06:19: POC Glucose 129 H Micro: Microbiology 04/18/22 14:47 Blood Culture (Wb) - Right Wrist Blood Culture - Final Staphylococcus aureus 04/18/22 15:56 Blood Culture (Wb) - Venous Blood Culture - Final Staphylococcus aureus 04/21/22 14:37 Blood Culture (Wb) - Anticubital Right Blood Culture - Preliminary No growth in 48 hours. 04/16/22 18:34 Blood Culture (Wb) - Left Wrist Blood Culture - Final Meth. resistant Staph. aureus 04/19/22 13:45 Blood Culture (Wb) - Left Hand Blood Culture - Preliminary No growth in 48 hours. 04/16/22 18:28 Blood Culture (Wb) - Anticubital Left Blood Culture - Final Staphylococcus aureus 04/13/22 07:30 Blood Culture (Wb) - Anticubital Left Blood Culture - Final Meth. resistant Staph. aureus 04/13/22 07:20 Blood Culture (Wb) - Pic Blood Culture - Final Meth. resistant Staph. aureus 04/09/22 20:51 Wound - Left Foot Gram Stain - Final 04/09/22 20:51 Wound - Left Foot Wound Culture - Final Meth. resistant Staph. aureus Streptococcus mitis/ oralis Corynebacterium striatum 04/09/22 20:51 Wound - Left Foot Anaerobic Culture - Final Prevotella bivia Bacteroides pyogenes 04/11/22 12:30 Wound Abcess - Right Foot Gram Stain - Final 04/11/22 12:30 Wound Abcess - Right Foot Wound Culture - Final Meth. resistant Staph. aureus 04/11/22 12:30 Wound Abcess - Right Foot Anaerobic Culture - Final No anaerobic bacteria isolated. 04/09/22 18:40 Urine, Catheterized Urine Culture - Final Culture exhibits no growth. 04/09/22 17:12 Blood Culture (Wb) - Anticubital Right Blood Culture - Final Staphylococcus aureus 04/09/22 16:50 Blood Culture (Wb) - Anticubital Right Bacteria Detection (PCR) - Final Staphylococcus aureus mecA Resistance Marker 04/09/22 16:50 Blood Culture (Wb) - Anticubital Right Blood Culture - Final Meth. resistant Staph. aureus Rhythm Strip Rhythm Strip: Sinus Rhythm Rate: 60 Ectopy: None Physical Exam Narrative GENERAL: Tearful HEENT: Atraumatic; EYES; Anicteric, Normal Conjunctiva NECK; supple, normal thyroid, RESPIRATORY: Diminished to auscultation CARDIOVASCULAR:? Regular S1 S2, GI:? soft, normoactive bowel sounds, : No Renal angle tenderness; EXTREMITIES: Both lower extremities in surgical dressing MUSCULOSKELETAL:? no muscle wasting NEURO:? Awake;? no lateralizing signs. SKIN:? No Rash PSYCH; depressed Assessment & Plan Assessment/Plan (1) Cellulitis of both lower extremities: (2) Chronic kidney disease, stage 4 (severe): PLAN: Plan Patient is a 56-year-old lady with complicated past medical history including acute on chronic kidney disease stage IV, diabetes mellitus type 2, history of bilateral lower extremity diabetic foot ulcers who presented with septic shock secondary to diabetic foot ulcers with osteomyelitis involving the right foot (cuboid and base of fourth and fifth toes). Patient had MRSA bacteremia 1.? Cellulitis and abscess involving an infected right foot wound, Osteomyelitis involving base of 4th and 5th toesl? right foot secondary to MRSA ? Patient had MRSA bacteremia. Managed with Vanco and cefepime. Consultation was placed to podiatry patient underwent debridement on 04/11/2022 -04/20/2022; Patient still remains bacteremic. MRI ordered by ID did show 1. Osteomyelitis involving the anterior medial aspect of the tarsal navicular, first and second cuneiform tarsal bones, and the cuboid tarsal bone, the base of the second metatarsal, in the proximal third, fourth, and fifth metatarsals. 2.? Adjacent inflammatory soft tissue abnormalities. ?04/22/2022; Adjusted the patient pain medication regimen. HONG was negative for endocarditis. Repeat blood cultures sent on on 711 and 713 all came back negative 2.? Staph aureus bacteremia ? secondary to above -04/21/2022 Patient is scheduled to undergo HONG. MRI of the lumbar spine obtained the day prior as part of work-up for her persistent bacteremia failed to show any epidural abscess -04/23/2022; cultures from 04/19/2022 negative. Data obtained from 04/21/2022 still pending -Patient CT came back negative discharged on daptomycin and Invanz 3.? Acute kidney injury ?Superimposed on chronic kidney disease stage IV.? Monitoring with daily BMPs nephrology following 4.? Anemia - Secondary to chronic disorder monitoring H&H and transfuse if patient becomes symptomatic or hemoglobin falls below? 7 5.? Diabetes mellitus type II ?With complications including Charcot foot as well as diabetic foot ulcers.? Patient is onlong acting insulin, Accu-Cheks a.c. and at bedtime and covered with sliding scale insulin ? 04/21/2022 patient had hypoglycemic episode 6.? Depression with anxiety ?Patient is on SSRI 7.? Dyslipidemia -Patient is on statin therapy, continued at home dose 8.? Acute metabolic encephalopathy ? Multifactorial including underlying infection as well as pain meds possible SSRI withdrawal 9.? Chronic back pain ?Patient is managed with outpatient epidural steroid injection 10. DVT prophylaxis - Heparin SC 11.? Physical deconditioning - Requested for PT OT eval and professor of social work to assist with discharge planning ? 12. Severe acute? malnutrition ? Related to inadequate energy intake d/t altered mental status as evidenced by unintentional 1.8kg/2% wt loss <1 week; estimated PO intake meeting <50% of estimated energy needs x 6 days recommend regular, no added salt diet given acute malnutrition (texture/consistency modifications per MATE FISHING VESSEL) when PO diet appropriate; resume Ensure Clear 120mL 4x/day as pt accepting when diet resumed (note Ensure Clear cannot be thickened); Ted BID for wound healing when diet resumed. Charges/Coding Visit Charges Inpatient E&M: 46819 Subs Hosp L2
[2022-04-24 08:11] VITALS: BP 153/83; PULSE 78; RESP 16; TEMP 36.6; O2SAT 93
--- NOTE | 2022-04-24 08:12 | PCM.PN.REN ---
Subjective Subjective Following for FELI on CKD. Resting in bed, alert and oriented. No overnight events. Denies any complaints. Objective Data Objective Data Vital Signs: Vital Signs Temp Pulse Resp BP Pulse Ox O2 Del Method 97.8 F 78 16 153/83 H 93 Room Air 04/24/22 08:11 04/24/22 08:11 04/24/22 08:11 04/24/22 08:11 04/24/22 08:11 04/24/22 08:11 Oxygen Delivery Method Room Air Weight: 98.1 kg Body Mass Index (BMI) 29.0 Intake & Output: Intake and Output for Last 24 Hours 04/22/22 04/23/22 04/24/22 23:59 23:59 23:59 Intake Total 1353 / 1353 1259 / 1259 Output Total 700 / 700 300 / 300 Balance 653 / 653 959 / 959 Medical Nutrition Assessment Dietitian: Malnutrition Criteria Met Start: 04/12/22 15:13 Freq: Status: Active Protocol: Document 04/22/22 16:46 AG (Rec: 04/22/22 16:46 AG [id number]) Nutrition Malnutrition Evidence of Malnutrition Exists No Intake Problem Increased Nutrient Needs (specify) Etiology increased protein needs related to wounds Signs/Symptoms as evidenced by multiple wounds, DM foot infection to L bottom foot Status Active Problem Inadequate Oral Intake Etiology related to altered mental status Signs/Symptoms as evidenced by estimated PO intake meeting <50% of estimated energy needs >1 week Status Resolved Problem Clinical Problem Acute Disease or Injury Related Malnutrition Etiology severe, acute malnutrition related to inadequate energy intake d/t altered mental status Signs/Symptoms as evidenced by unintentional 1.8kg/2% wt loss <1 week; estimated PO intake meeting < 50% of estimated energy needs x 6 days Status Resolved Problem Recommendation Dietitian Recommendations/Changes will change diet to cardiac, CHO controlled given improved PO intake and hyperglycemia ( texture/consistency modifications per COLLAR SETTER); Ted BID for wounds Lab / Micro Data Result Diagrams: 04/22/22 04:16 04/23/22 05:53 Labs: Laboratory Results - last 24 hr 04/23/22 11:10: POC Glucose 117 H 04/23/22 16:52: POC Glucose 160 H 04/23/22 21:40: POC Glucose 159 H 04/24/22 06:19: POC Glucose 129 H Micro: Microbiology 04/18/22 14:47 Blood Culture (Wb) - Right Wrist Blood Culture - Final Staphylococcus aureus 04/18/22 15:56 Blood Culture (Wb) - Venous Blood Culture - Final Staphylococcus aureus 04/21/22 14:37 Blood Culture (Wb) - Anticubital Right Blood Culture - Preliminary No growth in 48 hours. 04/16/22 18:34 Blood Culture (Wb) - Left Wrist Blood Culture - Final Meth. resistant Staph. aureus 04/19/22 13:45 Blood Culture (Wb) - Left Hand Blood Culture - Preliminary No growth in 48 hours. 04/16/22 18:28 Blood Culture (Wb) - Anticubital Left Blood Culture - Final Staphylococcus aureus 04/13/22 07:30 Blood Culture (Wb) - Anticubital Left Blood Culture - Final Meth. resistant Staph. aureus 04/13/22 07:20 Blood Culture (Wb) - Pic Blood Culture - Final Meth. resistant Staph. aureus 04/09/22 20:51 Wound - Left Foot Gram Stain - Final 04/09/22 20:51 Wound - Left Foot Wound Culture - Final Meth. resistant Staph. aureus Streptococcus mitis/ oralis Corynebacterium striatum 04/09/22 20:51 Wound - Left Foot Anaerobic Culture - Final Prevotella bivia Bacteroides pyogenes 04/11/22 12:30 Wound Abcess - Right Foot Gram Stain - Final 04/11/22 12:30 Wound Abcess - Right Foot Wound Culture - Final Meth. resistant Staph. aureus 04/11/22 12:30 Wound Abcess - Right Foot Anaerobic Culture - Final No anaerobic bacteria isolated. 04/09/22 18:40 Urine, Catheterized Urine Culture - Final Culture exhibits no growth. 04/09/22 17:12 Blood Culture (Wb) - Anticubital Right Blood Culture - Final Staphylococcus aureus 04/09/22 16:50 Blood Culture (Wb) - Anticubital Right Bacteria Detection (PCR) - Final Staphylococcus aureus mecA Resistance Marker 04/09/22 16:50 Blood Culture (Wb) - Anticubital Right Blood Culture - Final Meth. resistant Staph. aureus Rhythm Strip Rhythm Strip: Sinus Rhythm Rate: 60 Ectopy: None Physical Exam Narrative General: No apparent distress Neck: Supple Heart: Normal S1, S2. No rubs, murmurs or gallops. RRR Lungs: Clear to auscultation. No wheezes, rhonchi, rales noted. Abdominal: Normal bowel sounds, soft Extremities: 1+ b/l LE edema. [place] wraps dry and intact to bilateral feet Assessment & Plan Assessment/Plan (1) FELI (acute kidney injury): PLAN: -FELI secondary to ischemic ATN related to septic shock. Patient was oliguric but is now non-oliguric -Serum creatinine 3.3 mg/dL on admission, peaked 4.08 mg/dL on 04/13 and improved daily. Patient did not need CALCINER OPERATOR. Renal function improved with IVF; creatinine 2.4mg/dL from 04/24. No labs today. -Appetite had been very poor and patient was NPO for a few days. She had been on IV fluids due to poor appetite/NPO. Renal function improved with IV fluids. -At this time there is no significant uremic symptoms, hyperkalemia or severe acidosis therefore there is no acute need for kidney replacement therapy -Current medications are reviewed. They are all appropriately dosed for her renal function. -BPs improved on coreg 12.5mg bid (home dose 12.5mg bid) and off IV fluids -Overall renal function stable. Patient to follow-up with nephrology. (2) Chronic kidney disease, stage 4 (severe): PLAN: Baseline serum creatinine is around 2.00 to 2.40 mg/dL. The patient has underlying diabetic kidney disease. (3) Metabolic acidosis: PLAN: Suspect her initial acidosis from FELI/CKD along with poor tissue perfusion, patient also received IV NS for volume expansion which can also contribute to non-anion gap metabolic acidosis. There was no ketones on urine dipstick on 04/09/2022. She was having diarrhea which can contribute to acidosis. Serum bicarbonate level has improved, continue sodium bicarbonate orally. Patient and staff report improvement in diarrhea (4) Septic shock: PLAN: Clinically improving. She is no longer on IV vasopressor. Hemodynamically stable today. Septic shock was secondary to cellulitis, diabetic foot infection +MRSA and possibly osteomyelitis. BC from 04/19 no growth, BC from 04/21 so far no growth Antimicrobial coverage as per hospitalist and ID. Currently on Ertapenem and dapto MRI right foot showed Osteomyelitis involving the anterior medial aspect of the tarsal navicular, first and second cuneiform tarsal bones, and the cuboid tarsal bone, the base of the second metatarsal, in the proximal third, fourth, and fifth metatarsals. HONG negative for endocarditis, MRI of the lumbar spine did not show any absces discharge planning in progress to [facility]. Ok for discharge per renal when cleared by primary team and patient to follow-up with nephrology.
[2022-04-24] MEDS: 0.9% Saline Lock 10 ML Syringe IV ×2 (08:20→12:25)
[2022-04-24] MEDS: Juven (unflavored) Packet 1 PACKET PO (08:21)
--- NOTE | 2022-04-24 08:30 | PCM.TXEXTCAR ---
Diet Diet Order/Speech Therapy: 04/18/22 10:14 Diet: Cardiac - Heart Healthy Food consistency:: Regular Liquid Consistency:: Regular/Thin Dietary Modifications:: Consistent Carbohydrate Is pt able to select menu?: No Diet Comments: 100% supervision, no straws, slow rate of intake. Wound(s) left bottom of foot: Wound Type: Neuropathic/Diabetic Foot Ulcer Dressing Change: AntiMicrobial (Aquacel AG, etc) left lateral side of foot: Wound Type: Abrasion right medial side of foot: Wound Type: Abscess right bottom of foot: Wound Type: dry healed ulcer Dressing Change: Dry Sterile Dressing left 2nd toe: Wound Type: Abrasion Left middle finger: Wound Type: Bite right dorsolateral foot: Wound Type: open area along healed incision Dressing Change: Packed with Iodoform Therapies Weight Bearing: Partial weight bearing Physical Therapy: Eval and Treat Occupational Therapy: Eval and Treat Problem/Diagnosis (1) FELI (acute kidney injury): Status: Acute Code(s): N17.9 - Acute kidney failure, unspecified (2) Chronic kidney disease, stage 4 (severe): Status: Chronic Code(s): N18.4 - Chronic kidney disease, stage 4 (severe) (3) Metabolic acidosis: Status: Acute Code(s): E87.2 - Acidosis (4) Septic shock: Status: Acute Code(s): A41.9 - Sepsis, unspecified organism; R65.21 - Severe sepsis with septic shock Allergies/Procedures Done in Hospital Allergies Penicillins Allergy (Verified 04/09/22 16:37) swelling in throat vancomycin Allergy (Verified 04/09/22 16:37) Itching metronidazole Adverse Reaction (Verified 04/09/22 16:37) Nausea oxycodone [From OxyContin] Adverse Reaction (Verified 04/09/22 16:37) Shortness of breath Type of Care/Length of Stay Estimated LOS: Convalescent Care Less Than 30 days Type of Care Needed: Skilled Rehab Potential: Good Prognosis: Good Additional Orders/Day of Discharge Day of Discharge: 04/24/22 Dietary and Speech Recommendations Dietitian Recommendations/Changes: will change diet to cardiac, CHO controlled given improved PO intake and hyperglycemia (texture/consistency modifications per AIR QUALITY SPECIALIST); Ted BID for wounds Discharge Plan Admission Admit Date/Time: 04/09/22 19:00 Attending Provider: Rodney Yates Primary Care Provider: Raúl Eric Consulting Providers: Ashely Barakat ; Blas Vu ; Valerio Alvarado ; Angel Joel ; Kayden Gann ; Kike Tello ; Kali Prado Instructions Additional Instructions / Restrictions: Lower extremity foot dressing care-- Right foot: Iodoform gauze packing, gauze, ABD, Kerlix, [place] wrap daily Left foot: Aquacel Ag, gauze, ABD, Kerlix, [place] wrap daily Discharge Orders/Prescriptions Prescriptions: New daptomycin 500 mg recon soln 700 mg IV Q48H Qty: 27 0RF Rx Instructions: administer over 30 mins stop date 06/14/22 dx: MRSA osteomyelitis weekly bmp, cbc, LFT, CK, and esr. Fax to [phone] routine picc care with heparin/saline flush per protocol ertapenem [Invanz] 1 gram recon soln 0.5 g IV DAILY 3 Days Qty: 54 0RF Rx Instructions: stop date 06/14/22 dx: MRSA osteomyelitis weekly bmp, cbc, LFT, CK, and esr. Fax to [phone] routine picc care with heparin/saline flush per protocol acetaminophen [Tylenol] 325 mg Tablet 650 mg PO Q6 Qty: 0 0RF albuterol sulfate 2.5 mg /3 mL (0.083 %) Solution For Nebulization 2.5 mg inhalation Q2H PRN PRN (Reason: Dyspnea, wheezing) Qty: 0 0RF sennosides-docusate sodium [Stool Softener-Stimulant Laxat] 8.6-50 mg Tablet 2 tab PO BID PRN PRN (Reason: Constipation) Qty: 0 0RF clopidogrel 75 mg Tablet 75 mg PO DAILY Qty: 0 0RF sodium bicarbonate 650 mg Tablet 1,300 mg PO TID Qty: 0 0RF pantoprazole 40 mg Tablet,Delayed Release (Dr/Ec) 40 mg PO DAILY Qty: 0 0RF lidocaine 5 % Adhesive Patch,Medicated 2 patch topical DAILY Qty: 0 0RF Protocol: *Topical Application Instructions APPLICATION INSTRUCTIONS: 1 patch per leg nystatin [Nyamyc] 100,000 unit/gram Powder 1 applic topical BID Qty: 0 0RF Protocol: *Topical Application Instructions APPLICATION INSTRUCTIONS: vinicius area oxycodone 5 mg Tablet 5 mg PO Q6H PRN PRN (Reason: Pain Score 6-10) 2 Days Qty: 8 0RF insulin lispro [Humalog KwikPen Insulin] 100 unit/mL Insulin Pen See Protocol subcut ACHS Qty: 0 0RF Protocol: 3. Sliding Scale Insulin Med Dosing Condition: 150-189 mg/dl = 1 unit Condition: 190-229 mg/dl = 2 units Condition: 230-269 mg/dl = 3 units Condition: 270-309 mg/dl = 4 units Condition: 310-349 mg/dl = 5 units Condition: 350-399 mg/dl = 6 units Condition: 400-449 mg/dl = 7 units Condition: Greater than 449 call physician Protocol Text: - Use for Total Daily Dose of Insulin 37-55 units - Obsese, infected, or steroid patients MEDIUM DOSING ALGORITHIM menthol-zinc oxide [Calmoseptine] 0.44-20.6 % Ointment 1 applic topical TID Qty: 0 0RF Protocol: *Topical Application Instructions APPLICATION INSTRUCTIONS: buttocks Ted (with collagen) 7-7-1.5 gram Powder In Packet 1 packet PO BIDCM Qty: 0 0RF insulin glargine-yfgn 100 unit/mL (3 mL) Insulin Pen 15 unit subcut DAILY Qty: 0 0RF Continued atorvastatin 80 mg tablet 80 mg PO QHS Qty: 90 3RF isosorbide mononitrate 30 mg tablet extended release 24 hr 30 mg PO DAILY Label Comments: TAKE 1 TABLET BY MOUTH DAILY paroxetine HCl 20 mg tablet 20 mg PO QHS Label Comments: TAKE 1 TABLET BY MOUTH EVERY DAY IN THE EVENING insulin lispro [Humalog KwikPen Insulin] 100 unit/mL insulin pen 5 unit subcut LUNCH gabapentin 300 mg capsule 300 mg BID Label Comments: TAKE 3 CAPSULES BY MOUTH THREE TIMES DAILY FOR 90 DAYS. cyclobenzaprine 5 mg Tablet 5 mg PO QHS Qty: 0 0RF Rx Instructions: can take TID prn for back pain until she can follow-up with pain management carvedilol 12.5 mg Tablet 12.5 mg PO BID hydroxyzine HCl 25 mg Tablet 25 mg PO TID PRN (Reason: Anxiety) bupropion HCl 150 mg tablet extended release 24 hr 150 mg PO DAILY Label Comments: TAKE 1 TABLET BY MOUTH EVERY DAY carvedilol 6.25 mg Tablet 6.25 mg PO BID Rx Instructions: must administer with a meal/food pramipexole 1.5 mg Tablet 1.5 mg PO BID melatonin 5 mg Tablet 5 mg PO QHS guaifenesin 600 mg Tablet Extended Release 12hr 600 - 1,200 mg PO BID Discontinued insulin glargine [Lantus Solostar U-100 Insulin] 100 unit/mL (3 mL) insulin pen 30 unit SUBCUT DAILY Coricidin HBP Cold and Flu 2-325 mg Tablet 2 tab PO Q4H Referrals / Follow Up: Lavern Edgar DPM [STAFF PHYSICIAN] - Within 1 Week (follow at wound care center with any of the lower extremity specialists. call to schedule at [phone].) Raúl Eric MD [Primary Care Provider] - Disposition Disposition (needs filled in before D/C Order can be placed): [facility]
[2022-04-24 09:20] VITALS: BP 153/83; PULSE 78; RESP 16; TEMP 36.6; O2SAT 93
--- NOTE | 2022-04-24 09:21 | DS.PCM_ITS ---
Providers Date of Admission: 04/09/22 Primary Care Physician: Dr. Raúl Eric MD Consultations 04/09/22 20:16 Consult: Senior Customer Service Representative / Pulmonary Medicine Routine Consulting Provider: Valerio Alvarado Reason for Consult: Septic, BL LE Diabetic wounds, infected EMERGENT Consult: No Notified: Yes Date Notified: 04/09/22 Time Notified: 19:15 Method of Notification: Text Consult: Onc/Wound/small electric engine technician Routine Comment: Reason for Consult:: BL diabetic foot ulcers/infection Consult: Podiatry Routine Consulting Provider: Kayden Gann Reason for Consult: BL diabetic foot ulcers, cellulitis admit, sepsis EMERGENT Consult: No MD Notified: Yes Date Notified: 04/09/22 Time Notified: 19:04 Method of Notification: Text 04/11/22 06:21 Consult: Nephrology Routine Consulting Provider: Angel Joel Reason for Consult: FELI on CKD EMERGENT Consult: No Notified: Yes Date Notified: 04/11/22 Time Notified: 08:56 Method of Notification: Answering Service 04/16/22 07:42 Consult: Infectious Disease Routine Consulting Provider: Kike Tello Reason for Consult: right foot osteomyelitis EMERGENT Consult: No Notified: Yes Date Notified: 04/16/22 Time Notified: 07:42 Method of Notification: Answering Service Reason For Visit: SEPSIS, DM FOOT INFECTION BL, FELI Diagnosis Discharge Diagnosis (1) FELI (acute kidney injury): Status: Acute Code(s): N17.9 - Acute kidney failure, unspecified (2) Chronic kidney disease, stage 4 (severe): Status: Chronic Code(s): N18.4 - Chronic kidney disease, stage 4 (severe) (3) Metabolic acidosis: Status: Acute Code(s): E87.2 - Acidosis (4) Septic shock: Status: Acute Code(s): A41.9 - Sepsis, unspecified organism; R65.21 - Severe sepsis with septic shock Medications at Discharge Home Medications atorvastatin 80 mg tablet 80 mg PO QHS cholesterol #90 tabs 11/30/19 isosorbide mononitrate 30 mg tablet,extended release 24 hr 30 mg PO DAILY BP 03/03/21 paroxetine HCl 20 mg tablet 20 mg PO QHS DEPRESSION 07/07/21 insulin lispro 100 unit/mL subcutaneous pen (Humalog KwikPen (U-100) Insulin) 5 unit subcut LUNCH dm 11/16/21 cyclobenzaprine 5 mg tablet 5 mg PO QHS pain #0 tabs 12/23/21 gabapentin 300 mg capsule 300 mg BID nerve pain 12/23/21 bupropion HCl 150 mg 24 hr tablet, extended release 150 mg PO DAILY mood 02/04/22 carvedilol 12.5 mg tablet 12.5 mg PO BID heart 02/04/22 hydroxyzine HCl 25 mg tablet 25 mg PO TID PRN Anxiety 02/04/22 carvedilol 6.25 mg tablet 6.25 mg PO BID heart 04/09/22 guaifenesin 600 mg tablet, extended release 12 hr 600 - 1,200 mg PO BID congestion 04/09/22 melatonin 5 mg tablet 5 mg PO QHS sleep 04/09/22 pramipexole 1.5 mg tablet 1.5 mg PO BID rls 04/09/22 daptomycin 500 mg intravenous solution 700 mg IV Q48H #27 ea 04/22/22 ertapenem 1 gram solution for injection (Invanz) 0.5 g IV DAILY 3 days #54 ea 04/22/22 acetaminophen 325 mg tablet (Tylenol) 650 mg PO Q6 #0 tabs 04/24/22 albuterol sulfate 2.5 mg/3 mL (0.083 %) solution for nebulization 2.5 mg (3 mL) inhalation Q2H PRN PRN Dyspnea, wheezing #0 mL 04/24/22 arginine 7 gram-glutam 7 gram-CaHMB 1.5 vcsx-vhuiw-ci-min oral pwd pkt (Ted (with collagen)) 1 packet PO BIDCM #0 ea 04/24/22 clopidogrel 75 mg tablet 75 mg PO DAILY #0 tabs 04/24/22 insulin glargine-yfgn 100 unit/mL (3 mL) subcutaneous pen 15 unit (0.15 mL) subc ut DAILY #0 mL 04/24/22 insulin lispro 100 unit/mL subcutaneous pen (Humalog KwikPen (U-100) Insulin) See Protocol subcut ACHS #0 mL 04/24/22 lidocaine 5 % topical patch 2 patch topical DAILY #0 ea 04/24/22 menthol 0.44 %-zinc oxide 20.6 % topical ointment (Calmoseptine) 1 applic topical TID #0 grams 04/24/22 nystatin 100,000 unit/gram topical powder (Nyamyc) 1 applic topical BID #0 grams 04/24/22 oxycodone 5 mg tablet 5 mg PO Q6H PRN PRN Pain Score 6-10 2 days #8 tabs 04/24/22 pantoprazole 40 mg tablet,delayed release 40 mg PO DAILY #0 tabs 04/24/22 sennosides 8.6 mg-docusate sodium 50 mg tablet (Stool Softener-Stimulant Laxative) 2 tab PO BID PRN PRN Constipation #0 tabs 04/24/22 sodium bicarbonate 650 mg tablet 1,300 mg PO TID #0 tabs 04/24/22 Hospital Course Summary of Care Provided Minutes Spent on Discharge: 35 Hospital Course: Patient is a 56-year-old lady with complicated past medical history including acute on chronic kidney disease stage IV, diabetes mellitus type 2, history of bilateral lower extremity diabetic foot ulcers who presented with septic shock secondary to diabetic foot ulcers with osteomyelitis involving the right foot (cuboid and base of fourth and fifth toes). Patient had MRSA bacteremia 1.? Cellulitis and abscess involving an infected right foot wound, Osteomyelitis involving base of 4th and 5th toesl? right foot secondary to MRSA ? Patient had MRSA bacteremia. Managed with Vanco and cefepime. Consultation was placed to podiatry patient underwent debridement on 04/11/2022 -04/20/2022; Patient still remains bacteremic. MRI ordered by ID did show 1. Osteomyelitis involving the anterior medial aspect of the tarsal navicular, first and second cuneiform tarsal bones, and the cuboid tarsal bone, the base of the second metatarsal, in the proximal third, fourth, and fifth metatarsals. 2.? Adjacent inflammatory soft tissue abnormalities. ?04/22/2022; Adjusted the patient pain medication regimen. HONG was negative for endocarditis. Repeat blood cultures sent on 04/21/2022. Results pending -Patient HONG was negative 2.? Staph aureus bacteremia ? secondary to above -04/21/2022 Patient is scheduled to undergo HONG. MRI of the lumbar spine obtained the day prior as part of work-up for her persistent bacteremia failed to show any epidural abscess -04/23/2022; cultures from 04/19/2022 negative. Data obtained from 04/21/2022 st ill pending -Patient was discharged on daptomycin and Invanz 3.? Acute kidney injury ?Superimposed on chronic kidney disease stage IV.? Monitoring with daily BMPs nephrology following 4.? Anemia - Secondary to chronic disorder monitoring H&H and transfuse if patient becomes symptomatic or hemoglobin falls below? 7 5.? Diabetes mellitus type II ?With complications including Charcot foot as well as diabetic foot ulcers.? Patient is onlong acting insulin, Accu-Cheks a.c. and at bedtime and covered with sliding scale insulin ? 04/21/2022 patient had hypoglycemic episode 6.? Depression with anxiety ?Patient is on SSRI 7.? Dyslipidemia -Patient is on statin therapy, continued at home dose 8.? Acute metabolic encephalopathy ? Multifactorial including underlying infection as well as pain meds possible SSRI withdrawal 9.? Chronic back pain ?Patient is managed with outpatient epidural steroid injection 10. DVT prophylaxis - Heparin SC 11.? Physical deconditioning - Requested for PT OT eval and manager social responsibility to assist with discharge planning ? 12. Severe acute? malnutrition ? Related to inadequate energy intake d/t altered mental status as evidenced by unintentional 1.8kg/2% wt loss <1 week; estimated PO intake meeting <50% of estimated energy needs x 6 days recommend regular, no added salt diet given acute malnutrition (texture/consistency modifications per BUSINESS ETHICS PROFESSOR) when PO diet a ppropriate; resume Ensure Clear 120mL 4x/day as pt accepting when diet resumed (note Ensure Clear cannot be thickened); Ted BID for wound healing when diet resumed. Physical Exam Narrative GENERAL: Tearful HEENT: Atraumatic; EYES; Anicteric, Normal Conjunctiva NECK; supple, normal thyroid, RESPIRATORY: Diminished to auscultation CARDIOVASCULAR:? Regular S1 S2, GI:? soft, normoactive bowel sounds, : No Renal angle tenderness; EXTREMITIES: Both lower extremities in surgical dressing MUSCULOSKELETAL:? no muscle wasting NEURO:? Awake;? no lateralizing signs. SKIN:? No Rash PSYCH; depressed Medical Records Data Medical Nutrition Assessment Dietitian: Malnutrition Criteria Met Start: 04/12/22 15:13 Freq: Status: Active Protocol: Document 04/22/22 16:46 AG (Rec: 04/22/22 16:46 AG [id number]) Nutrition Malnutrition Evidence of Malnutrition Exists No Intake Problem Increased Nutrient Needs (specify) Etiology increased protein needs related to wounds Signs/Symptoms as evidenced by multiple wounds, DM foot infection to L bottom foot Status Active Problem Inadequate Oral Intake Etiology related to altered mental status Signs/Symptoms as evidenced by estimated PO intake meeting <50% of estimated energy needs >1 week Status Resolved Problem Clinical Problem Acute Disease or Injury Related Malnutrition Etiology severe, acute malnutrition related to inadequate energy intake d/t altered mental status Signs/Symptoms as evidenced by unintentional 1.8kg/2% wt loss <1 week; estimated PO intake meeting < 50% of estimated energy needs x 6 days Status Resolved Problem Recommendation Dietitian Recommendations/Changes will change diet to cardiac, CHO controlled given improved PO intake and hyperglycemia ( texture/consistency modifications per BUSINESS ETHICS PROFESSOR); Ted BID for wounds Weight / BMI Weight Weight: 98.1 kg Body Mass Index (BMI) 29.0 ABG / Lab / Microbiology Data Result Diagrams: 04/22/22 04:16 04/23/22 05:53 Laboratory: Laboratory Results - last 24 hr 04/23/22 11:10: POC Glucose 117 H 04/23/22 16:52: POC Glucose 160 H 04/23/22 21:40: POC Glucose 159 H 04/24/22 06:19: POC Glucose 129 H Microbiology: Microbiology 04/18/22 14:47 Blood Culture (Wb) - Right Wrist Blood Culture - Final Staphylococcus aureus 04/18/22 15:56 Blood Culture (Wb) - Venous Blood Culture - Final Staphylococcus aureus 04/21/22 14:37 Blood Culture (Wb) - Anticubital Right Blood Culture - Preliminary No growth in 48 hours. 04/16/22 18:34 Blood Culture (Wb) - Left Wrist Blood Culture - Final Meth. resistant Staph. aureus 04/19/22 13:45 Blood Culture (Wb) - Left Hand Blood Culture - Preliminary No growth in 48 hours. 04/16/22 18:28 Blood Culture (Wb) - Anticubital Left Blood Culture - Final Staphylococcus aureus 04/13/22 07:30 Blood Culture (Wb) - Anticubital Left Blood Culture - Final Meth. resistant Staph. aureus 04/13/22 07:20 Blood Culture (Wb) - Pic Blood Culture - Final Meth. resistant Staph. aureus 04/09/22 20:51 Wound - Left Foot Gram Stain - Final 04/09/22 20:51 Wound - Left Foot Wound Culture - Final Meth. resistant Staph. aureus Streptococcus mitis/ oralis Corynebacterium striatum 04/09/22 20:51 Wound - Left Foot Anaerobic Culture - Final Prevotella bivia Bacteroides pyogenes 04/11/22 12:30 Wound Abcess - Right Foot Gram Stain - Final 04/11/22 12:30 Wound Abcess - Right Foot Wound Culture - Final Meth. resistant Staph. aureus 04/11/22 12:30 Wound Abcess - Right Foot Anaerobic Culture - Final No anaerobic bacteria isolated. 04/09/22 18:40 Urine, Catheterized Urine Culture - Final Culture exhibits no growth. 04/09/22 17:12 Blood Culture (Wb) - Anticubital Right Blood Culture - Final Staphylococcus aureus 04/09/22 16:50 Blood Culture (Wb) - Anticubital Right Bacteria Detection (PCR) - Final Staphylococcus aureus mecA Resistance Marker 04/09/22 16:50 Blood Culture (Wb) - Anticubital Right Blood Culture - Final Meth. resistant Staph. aureus D/C Instructions Discharge Diet: 1800 Calorie Control Diet Discharge Activity: Return to Normal Activity Call your doctor if you observe: Fever of 101 or Higher, Shortness of breath, Fainting spells and Chest pain Meaningful Use Info Meaningful Use Diagnoses (Choose all that apply): None applicable Discharge Plan Admission Admit Date/Time: 04/09/22 19:00 Attending Provider: Rodney Yates Primary Care Provider: Raúl Eric Consulting Providers: Ashely Barakat ; Blas Vu ; Valerio Alvarado ; Angel Joel ; Kayden Gann ; Kike Tello ; Kali Prado Instructions Additional Instructions / Restrictions: Lower extremity foot dressing care-- Right foot: Iodoform gauze packing, gauze, ABD, Kerlix, [place] wrap daily Left foot: Aquacel Ag, gauze, ABD, Kerlix, [place] wrap daily Discharge Orders/Prescriptions Prescriptions: New daptomycin 500 mg recon soln 700 mg IV Q48H Qty: 27 0RF Rx Instructions: administer over 30 mins stop date 06/14/22 dx: MRSA osteomyelitis weekly bmp, cbc, LFT, CK, and esr. Fax to [phone] routine picc care with heparin/saline flush per protocol ertapenem [Invanz] 1 gram recon soln 0.5 g IV DAILY 3 Days Qty: 54 0RF Rx Instructions: stop date 06/14/22 dx: MRSA osteomyelitis weekly bmp, cbc, LFT, CK, and esr. Fax to [phone] routine picc care with heparin/saline flush per protocol acetaminophen [Tylenol] 325 mg Tablet 650 mg PO Q6 Qty: 0 0RF albuterol sulfate 2.5 mg /3 mL (0.083 %) Solution For Nebulization 2.5 mg inhalation Q2H PRN PRN (Reason: Dyspnea, wheezing) Qty: 0 0RF sennosides-docusate sodium [Stool Softener-Stimulant Laxat] 8.6-50 mg Tablet 2 tab PO BID PRN PRN (Reason: Constipation) Qty: 0 0RF clopidogrel 75 mg Tablet 75 mg PO DAILY Qty: 0 0RF sodium bicarbonate 650 mg Tablet 1,300 mg PO TID Qty: 0 0RF pantoprazole 40 mg Tablet,Delayed Release (Dr/Ec) 40 mg PO DAILY Qty: 0 0RF lidocaine 5 % Adhesive Patch,Medicated 2 patch topical DAILY Qty: 0 0RF Protocol: *Topical Application Instructions APPLICATION INSTRUCTIONS: 1 patch per leg nystatin [Nyamyc] 100,000 unit/gram Powder 1 applic topical BID Qty: 0 0RF Protocol: *Topical Application Instructions APPLICATION INSTRUCTIONS: vinicius area oxycodone 5 mg Tablet 5 mg PO Q6H PRN PRN (Reason: Pain Score 6-10) 2 Days Qty: 8 0RF insulin lispro [Humalog KwikPen Insulin] 100 unit/mL Insulin Pen See Protocol subcut ACHS Qty: 0 0RF Protocol: 3. Sliding Scale Insulin Med Dosing Condition: 150-189 mg/dl = 1 unit Condition: 190-229 mg/dl = 2 units Condition: 230-269 mg/dl = 3 units Condition: 270-309 mg/dl = 4 units Condition: 310-349 mg/dl = 5 units Condition: 350-399 mg/dl = 6 units Condition: 400-449 mg/dl = 7 units Condition: Greater than 449 call physician Protocol Text: - Use for Total Daily Dose of Insulin 37-55 units - Obsese, infected, or steroid patients MEDIUM DOSING ALGORITHIM menthol-zinc oxide [Calmoseptine] 0.44-20.6 % Ointment 1 applic topical TID Qty: 0 0RF Protocol: *Topical Application Instructions APPLICATION INSTRUCTIONS: buttocks Ted (with collagen) 7-7-1.5 gram Powder In Packet 1 packet PO BIDCM Qty: 0 0RF insulin glargine-yfgn 100 unit/mL (3 mL) Insulin Pen 15 unit subcut DAILY Qty: 0 0RF Continued atorvastatin 80 mg tablet 80 mg PO QHS Qty: 90 3RF isosorbide mononitrate 30 mg tablet extended release 24 hr 30 mg PO DAILY Label Comments: TAKE 1 TABLET BY MOUTH DAILY paroxetine HCl 20 mg tablet 20 mg PO QHS Label Comments: TAKE 1 TABLET BY MOUTH EVERY DAY IN THE EVENING insulin lispro [Humalog KwikPen Insulin] 100 unit/mL insulin pen 5 unit subcut LUNCH gabapentin 300 mg capsule 300 mg BID Label Comments: TAKE 3 CAPSULES BY MOUTH THREE TIMES DAILY FOR 90 DAYS. cyclobenzaprine 5 mg Tablet 5 mg PO QHS Qty: 0 0RF Rx Instructions: can take TID prn for back pain until she can follow-up with pain management carvedilol 12.5 mg Tablet 12.5 mg PO BID hydroxyzine HCl 25 mg Tablet 25 mg PO TID PRN (Reason: Anxiety) bupropion HCl 150 mg tablet extended release 24 hr 150 mg PO DAILY Label Comments: TAKE 1 TABLET BY MOUTH EVERY DAY carvedilol 6.25 mg Tablet 6.25 mg PO BID Rx Instructions: must administer with a meal/food pramipexole 1.5 mg Tablet 1.5 mg PO BID melatonin 5 mg Tablet 5 mg PO QHS guaifenesin 600 mg Tablet Extended Release 12hr 600 - 1,200 mg PO BID Discontinued insulin glargine [Lantus Solostar U-100 Insulin] 100 unit/mL (3 mL) insulin pen 30 unit SUBCUT DAILY Coricidin HBP Cold and Flu 2-325 mg Tablet 2 tab PO Q4H Referrals / Follow Up: Lavern Edgar DPM [STAFF PHYSICIAN] - Within 1 Week (follow at wound care center with any of the lower extremity specialists. call to schedule at [phone].) Raúl Eric MD [Primary Care Provider] - Disposition Disposition (needs filled in before D/C Order can be placed): [facility] Facility Charges/Coding Visit Charges Inpatient E&M: 42047 Disch Hosp
[2022-04-24] MEDS: Nystatin Powder 15gm Bottle 1 APPLIC TOPICAL (10:17)
--- NOTE | 2022-04-24 10:53 | CASEMGMT ---
Social Work Note LUCRETIA received message from Zoila at [facility] stating pre-cert has been obtained. Pt will need to admit to [facility] by Tuesday or new pre-cert will need to be submitted Tuesday. LUCRETIA reviewed chart and discharge is in for pt. LUCRETIA completed [facility] in [facility]. LUCRETIA faxed [facility] to [facility]. LUCRETIA placed a call to Zoila at [facility] and updated her that discharge is in for pt today and [facility]ENS has been submitted. Zoila gave new number to fax orders and to call RN to RN. New fax number to fax orders is [phone] and RN to RN, option 2 then option 5. LUCRETIA placed a call to [employer] and updated the church secretary on fax and RN to RN number. Erika Tobar FASHION CONSULTANT SALES, COMMUNICATIONS INTERN
[2022-04-24] MEDS: Insulin Glargine-YFGN 100 UNIT/ML Pen 15 UNIT SC (11:22)
[2022-04-24] MEDS: Carvedilol 12.5 MG Tablet PO (11:25)
[2022-04-24] MEDS: Pantoprazole Sodium 40 MG Tablet PO (11:27)
[2022-04-24] MEDS: Clopidogrel Bisulfate 75 MG Tablet PO (11:27)
[2022-04-24] MEDS: Acetaminophen 325 MG Tablet 650 MG PO (11:33)
[2022-04-24 11:55] LABS: Bedside Glucose 185 mg/dL (74-106)
== END 2022-04-24 12:30 | disposition skilled nursing facility (03) | DRG 853 ==
LOC: ED 18:41 → ICU 19:19 → MS3 04-14 12:15
PROVIDERS: Internal Medicine; Internal Medicine Infectious Disease; Internal Medicine Nephrology; Nurse Practitioner Adult Health; Admitting Provider Family Medicine; Emergency Provider Emergency Medicine; PCP Family Medicine; Visit Provider Internal Medicine
DX: A41.02 Sepsis due to Methicillin resistant Staphylococcus aureus (principal); R65.21 Severe sepsis with septic shock; N17.0 Acute kidney failure with tubular necrosis; G92.8 Other toxic encephalopathy; E44.0 Moderate protein-calorie malnutrition; M86.171 Other acute osteomyelitis, right ankle and foot; N18.4 Chronic kidney disease, stage 4 (severe); I50.32 Chronic diastolic (congestive) heart failure; I13.0 Hypertensive heart and chronic kidney disease with heart failure and stage 1 through stage 4 chronic kidney disease, or unspecified chronic kidney disease; L97.416 Non-pressure chronic ulcer of right heel and midfoot with bone involvement without evidence of necrosis; L97.426 Non-pressure chronic ulcer of left heel and midfoot with bone involvement without evidence of necrosis; E87.2 Acidosis; E87.1 Hypo-osmolality and hyponatremia; M84.674A Pathological fracture in other disease, right foot, initial encounter for fracture; L03.115 Cellulitis of right lower limb; L02.611 Cutaneous abscess of right foot; L03.116 Cellulitis of left lower limb; E11.610 Type 2 diabetes mellitus with diabetic neuropathic arthropathy; D63.1 Anemia in chronic kidney disease; E11.42 Type 2 diabetes mellitus with diabetic polyneuropathy; E11.22 Type 2 diabetes mellitus with diabetic chronic kidney disease; E11.649 Type 2 diabetes mellitus with hypoglycemia without coma; Z79.4 Long term (current) use of insulin; E11.621 Type 2 diabetes mellitus with foot ulcer; F03.90 Unspecified dementia, unspecified severity, without behavioral disturbance, psychotic disturbance, mood disturbance, and anxiety; L97.514 Non-pressure chronic ulcer of other part of right foot with necrosis of bone; E11.69 Type 2 diabetes mellitus with other specified complication; I25.5 Ischemic cardiomyopathy; S61.259A Open bite of unspecified finger without damage to nail, initial encounter; E78.5 Hyperlipidemia, unspecified; I25.10 Atherosclerotic heart disease of native coronary artery without angina pectoris; F41.9 Anxiety disorder, unspecified; G25.81 Restless legs syndrome; I25.2 Old myocardial infarction; E86.1 Hypovolemia; F32.A Depression, unspecified; B95.5 Unspecified streptococcus as the cause of diseases classified elsewhere; R45.1 Restlessness and agitation; R13.10 Dysphagia, unspecified; E66.9 Obesity, unspecified; Z68.29 Body mass index [BMI] 29.0-29.9, adult; Z20.822 Contact with and (suspected) exposure to COVID-19; Z79.02 Long term (current) use of antithrombotics/antiplatelets; Z79.899 Other long term (current) drug therapy; Z86.16 Personal history of COVID-19; Z86.73 Personal history of transient ischemic attack (TIA), and cerebral infarction without residual deficits; Z95.5 Presence of coronary angioplasty implant and graft
CPT/HCPCS: 36415; 36569; 36600; 70450; 71045; 72148; 73630; 73718; 80048; 80053; 80069; 80076; 80202; 81001; 82550; 82803; 82962; 83036; 83605; 83735; 84100; 84145; 85014; 85018; 85025; 85610; 85652; 85730; 86140; 86850; 86900; 86901; 87040; 87070; 87075; 87077; 87086; 87149; 87186; 87205; 87426; 87635; 87640; 92526; 92610; 93005; 93306; 93312; 93320; 93325; 97110; 97162; 97165; 97530; 97535; 97802; 97803; 99251; 99285; J0878; J2185; J7030; J7040; J7050; J7120; Q9957; A4216; G0463; J0696; J1940; J2405; J3490; U0003; U0005

== ENCOUNTER 2022-04-27 19:48 | Observation (INO) | payer MEDICARE, MEDICAID, SELFPAY ==
[2018-09-21 13:23] VITALS: BMI 29.3
[2022-04-27 19:50] VITALS: PULSE 77; RESP 14; TEMP 36.7; O2SAT 92; BMI 36.2
[2022-04-27 19:55] VITALS: BP 149/76
--- NOTE | 2022-04-27 20:22 | EDS_ITS ---
HPI History of Present Illness Chief Complaint: Abn Labs Narrative Narrative: 56-year-old female with chronic kidney disease and chronic anemia presenting with anemia. Apparently this was checked earlier today and it was initially 6.6. It was checked again and it was 6.8. At this point patient was sent to the ER for a blood transfusion. Patient denies any black or bloody stools but she does admit to being on Eliquis. She states she feels at her baseline. She does not feel ill. Patient with significant history of osteomyelitis and recently discharged from [facility] to the extended care facility. [facility] Medical History Acquired varus deformity of left foot Acquired varus deformity of right foot Amputation foot, bilat Anemia due to chronic illness Anxiety and depression Atherosclerosis of [place] coronary artery of [place] heart without angina pectoris Back pain, chronic Bilateral edema of lower extremity Charcot's joint of right foot Chronic renal insufficiency Chronic ulcer of left foot with fat layer exposed Chronic ulcer of right foot with necrosis of muscle COVID-19 (08/28/21) Delayed wound healing Diabetes Diabetic foot ulcer associated with type 2 diabetes mellitus Diabetic infection of left foot Diabetic polyneuropathy Diabetic ulcer of right ankle Elevated troponin Essential (primary) hypertension GERD (gastroesophageal reflux disease) Hemoglobin A1c greater than 9.0% HLD (hyperlipidemia) Hyperparathyroidism, secondary renal Hypertension Iron deficiency anemia Ischemic cardiomyopathy Myocardial infarct Non-compliance Non-smoker Normocytic anemia NSTEMI (non-ST elevated myocardial infarction) (09/20/18) Obesity (BMI 30.0-34.9) Osteomyelitis of left foot RLS (restless legs syndrome) Stage 4 chronic kidney disease TIA (transient ischemic attack) 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 Ulcer of left foot with fat layer exposed Ulcer of left foot with muscle involvement without evidence of necrosis Ulcer of right lower extremity with fat layer exposed Home Medications atorvastatin 80 mg tablet 80 mg PO QHS cholesterol #90 tabs 11/30/19 [Rx Last Taken 04/07/22] isosorbide mononitrate 30 mg tablet,extended release 24 hr 30 mg PO DAILY BP 03/03/21 [History Last Taken 04/07/22] paroxetine HCl 20 mg tablet 20 mg PO DAILY DEPRESSION 07/07/21 [History Last Taken 04/07/22] insulin lispro 100 unit/mL subcutaneous pen (Humalog KwikPen (U-100) Insulin) 5 unit subcut LUNCH dm 11/16/21 [History Last Taken 04/07/22] cyclobenzaprine 5 mg tablet 5 mg PO QHS pain #0 tabs 12/23/21 [Rx Last Taken 04/07/22] gabapentin 300 mg capsule 300 mg BID nerve pain 12/23/21 [History Last Taken 04/07/22] bupropion HCl 150 mg 24 hr tablet, extended release 150 mg PO DAILY mood 02/04/22 [History Last Taken 04/07/22] carvedilol 12.5 mg tablet 12.5 mg PO BID heart 02/04/22 [History Last Taken 04/07/22] hydroxyzine HCl 25 mg tablet 25 mg PO TID PRN Anxiety 02/04/22 [History Last Taken 04/07/22] guaifenesin 600 mg tablet, extended release 12 hr 600 - 1,200 mg PO BID congestion 04/09/22 [History Last Taken 04/07/22] melatonin 5 mg tablet 5 mg PO QHS sleep 04/09/22 [History Last Taken 04/07/22] pramipexole 1.5 mg tablet 1.5 mg PO BID rls 04/09/22 [History Last Taken 04/07/22] daptomycin 500 mg intravenous solution 700 mg IV Q48H #27 ea 04/22/22 [Rx Last Taken Unknown] acetaminophen 325 mg tablet (Tylenol) 650 mg PO Q6 #0 tabs 04/24/22 [Rx Last Taken Unknown] albuterol sulfate 2.5 mg/3 mL (0.083 %) solution for nebulization 2.5 mg (3 mL) inhalation Q2H PRN PRN Dyspnea, wheezing #0 mL 04/24/22 [Rx Last Taken Unknown] arginine 7 gram-glutam 7 gram-CaHMB 1.5 [id number]-min oral pwd pkt (Ted (with collagen)) 1 packet PO BIDCM #0 ea 04/24/22 [Rx Last Taken Unknown] clopidogrel 75 mg tablet 75 mg PO DAILY #0 tabs 04/24/22 [Rx Last Taken Unknown] insulin glargine-yfgn 100 unit/mL (3 mL) subcutaneous pen 15 unit (0.15 mL) subcut DAILY #0 mL 04/24/22 [Rx Last Taken Unknown] insulin lispro 100 unit/mL subcutaneous pen (Humalog KwikPen (U-100) Insulin) See Protocol subcut ACHS #0 mL 04/24/22 [Rx Last Taken Unknown] lidocaine 5 % topical patch 2 patch topical DAILY #0 ea 04/24/22 [Rx Last Taken Unknown] menthol 0.44 %-zinc oxide 20.6 % topical ointment (Calmoseptine) 1 applic topical TID #0 grams 04/24/22 [Rx Last Taken Unknown] nystatin 100,000 unit/gram topical powder (Nyamyc) 1 applic topical BID #0 grams 04/24/22 [Rx Last Taken Unknown] oxycodone 5 mg tablet 5 mg PO Q6H PRN PRN Pain Score 6-10 2 days #8 tabs 04/24/22 [Rx Last Taken Unknown] pantoprazole 40 mg tablet,delayed release 40 mg PO DAILY #0 tabs 04/24/22 [Rx Last Taken Unknown] sennosides 8.6 mg-docusate sodium 50 mg tablet (Stool Softener-Stimulant Laxative) 2 tab PO BID PRN PRN Constipation #0 tabs 04/24/22 [Rx Last Taken Unknown] sodium bicarbonate 650 mg tablet 1,300 mg PO TID #0 tabs 04/24/22 [Rx Last Taken Unknown] ertapenem 1 gram solution for injection (Invanz) 0.5 g IV QHS 04/27/22 [History Last Taken Unknown] Allergy/AdvReac Type Severity Reaction Status Date / Time Penicillins Allergy swelling Verified 04/27/22 19:53 in throat vancomycin Allergy Itching Verified 04/27/22 19:53 metronidazole AdvReac Nausea Verified 04/27/22 19:53 oxycodone [From OxyContin] AdvReac Shortness Verified 04/27/22 19:53 of breath Family History Mother Diabetes CVA (cerebral vascular accident) Brother CAD (coronary artery disease) CABG X 3 Cancer testicular Diabetes Brother CAD (coronary artery disease) CABG X3 Diabetes Brother CAD (coronary artery disease) Stents Diabetes Sister CAD (coronary artery disease) CABG x 3 CVA (cerebral vascular accident) Diabetes Surgical History History of bilateral carpal tunnel release History of History of coronary artery stent placement (12/31/20) History of foot surgery History of rotator cuff surgery Social History household members: none number of children: 2 current occupational status: disabled Smoking Status: Never smoker alcohol intake: never substance use type: does not use caffeine: Yes Type: carbonated beverages Number of servings: 2 ROS ROS ED Constitutional Constitutional ED: Denies chills or fever(s) Eyes Eyes: Denies change in vision ENT ENT ED: Denies rhinorrhea or sore throat Cardiovascular Cardiovascular: Denies palpitations Respiratory/Chest Respiratory/Chest: Denies cough or dyspnea Gastrointestinal Gastrointestinal: Denies abdominal pain or constipation Genitourinary Genitourinary ED: Denies dysuria or hematuria Musculoskeletal Musculoskeletal: Denies arthralgias or back pain Integumentary Denies abscess or Abrasions Neurologic Neurologic: Denies headache(s) or paresthesias Psychiatric Psychiatric: Denies anxiety or depression Endocrine Endocrinology: Denies cold intolerance or heat intolerance Hematologic/Lymphatic Hematologic/Lymphatic: Denies systems reviewed and no addt'l complaints, except as documented EXAM Physical Exam Const Vital Signs: 04/27/22 19:50 04/27/22 19:55 04/27/22 19:55 Temperature 98.1 F Temperature Source Oral Pulse Rate 77 Respiratory Rate 14 Respiratory Effort Normal Blood Pressure 149/76 H Blood Pressure Mean 100 Pulse Ox 92 Oxygen Delivery Method Room Air Positive well nourished and obese General Appearance ED: NAD and pallor Nutritional Appearance: obese HEENT Reports moist mucous membranes Negative for trauma or tenderness Eyes PERRL and EOMs intact bilaterally General Eye ED: Yes pale conjunctiva Resp normal respiratory effort Cardio regular rate and regular rhythm GI normal to inspection, nondistended, normoactive bowel sounds GI Narrative: Brownish-yellow stool obtained on exam Back/Spine no CVA tenderness Neuro oriented x3 and CN's II-XII intact bilaterally Sensorium / Orientation: alert Psych mental status grossly normal Skin no rashes or lesions noted General Skin Exam: pallor; Negative for jaundice MDM MDM MDM Narrative Medical decision making narrative: Patient with chronic anemia. She has CKD and this is likely source of her chronic anemia. She denies any black or bloody stools. Her hemoglobin has been low for months now but is worse today. This is the lowest its been. We will check a Hemoccult stool. She already had a CBC and BMP drawn today. Her renal function is stable. Vitals are normal. Patient well-appearing. Hemoccult stool was positive. Patient has not had 1 of these performed yet. Patient is on Plavix. She is normotensive with stable vitals. I will type and screen her for 2 units. I discussed the case with general surgery who will follow if needed. Patient was discussed with the hospitalist for admission. Impression: 1. GI bleed 2. Blood loss anemia Lab Data Attestation: I reviewed the patient's lab results. Labs: Laboratory Results - last 24 hr 04/27/22 20:02 Blood Type O POSITIVE Antibody Screen NEGATIVE Crossmatch See Detail Discharge Plan Disposition Disposition: Acute Care Hospital [facility] Discharge Date/Time: 04/27/22 22:21
--- NOTE | 2022-04-27 21:52 | PCM.HP.STD ---
[facility] - General General Date of Admission: 04/27/22 Date of Service: 04/27/22 Chief Complaint: Anemia on outpatient lab HPI Narrative DIONY ROCHA, is a 56 F?with a significant medical history of obesity, Anxiety and Depression, Diabetes mellitus type II with charcot foot, polyneuropathy, Hx Diabetic foot ulcers s/p BL LE foot surgeries, HTN, HLD, AOCD, Hx TIA, CAD s/p PCI and Ischemic cardiomyopathy, CKD stage IV, RLS and who was recently admitted to [facility] from 04/09/2022 to 04/24/2022 for cellulitis/abscess/osteomyelitis; staph virus bacteremia and FELI; and discharged to [facility] the [facility] because of anemia. Reportedly hemoglobin at the [facility] was 6.6 and repeat was 6.8 so patient was sent to emergency department for transfusion. Patient reports nausea; vomiting and constipation. She denies any melena; hematemesis; or hematochezia. She denies any other symptoms. Emergency department doctor reports brown stools on examination which returned to be occult positive. [facility] Medical History (Updated 04/27/22 @ 23:[address] Gopi Bach MD) Acquired varus deformity of left foot Acquired varus deformity of right foot Amputation foot, bilat Anemia due to chronic illness Anxiety and depression Atherosclerosis of [place] coronary artery of [place] heart without angina pectoris Back pain, chronic Bilateral edema of lower extremity Charcot's joint of right foot Chronic renal insufficiency Chronic ulcer of left foot with fat layer exposed Chronic ulcer of right foot with necrosis of muscle COVID-19 (08/28/21) Delayed wound healing Diabetes Diabetic foot ulcer associated with type 2 diabetes mellitus Diabetic infection of left foot Diabetic polyneuropathy Diabetic ulcer of right ankle Elevated troponin Essential (primary) hypertension GERD (gastroesophageal reflux disease) Hemoglobin A1c greater than 9.0% HLD (hyperlipidemia) Hyperparathyroidism, secondary renal Hypertension Iron deficiency anemia Ischemic cardiomyopathy Myocardial infarct Non-compliance Non-smoker Normocytic anemia NSTEMI (non-ST elevated myocardial infarction) (09/20/18) Obesity (BMI 30.0-34.9) Osteomyelitis of left foot RLS (restless legs syndrome) Stage 4 chronic kidney disease TIA (transient ischemic attack) 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 Ulcer of left foot with fat layer exposed Ulcer of left foot with muscle involvement without evidence of necrosis Ulcer of right lower extremity with fat layer exposed Home Medications atorvastatin 80 mg tablet 80 mg PO QHS cholesterol #90 tabs 11/30/19 [Rx Last Taken 04/07/22] isosorbide mononitrate 30 mg tablet,extended release 24 hr 30 mg PO DAILY BP 03/03/21 [History Last Taken 04/07/22] paroxetine HCl 20 mg tablet 20 mg PO DAILY DEPRESSION 07/07/21 [History Last Taken 04/07/22] insulin lispro 100 unit/mL subcutaneous pen (Humalog KwikPen (U-100) Insulin) 5 unit subcut LUNCH dm 11/16/21 [History Last Taken 04/07/22] cyclobenzaprine 5 mg tablet 5 mg PO QHS pain #0 tabs 12/23/21 [Rx Last Taken 04/07/22] gabapentin 300 mg capsule 300 mg BID nerve pain 12/23/21 [History Last Taken 04/07/22] bupropion HCl 150 mg 24 hr tablet, extended release 150 mg PO DAILY mood 02/04/22 [History Last Taken 04/07/22] carvedilol 12.5 mg tablet 12.5 mg PO BID heart 02/04/22 [History Last Taken 04/07/22] hydroxyzine HCl 25 mg tablet 25 mg PO TID PRN Anxiety 02/04/22 [History Last Taken 04/07/22] guaifenesin 600 mg tablet, extended release 12 hr 600 - 1,200 mg PO BID congestion 04/09/22 [History Last Taken 04/07/22] melatonin 5 mg tablet 5 mg PO QHS sleep 04/09/22 [History Last Taken 04/07/22] pramipexole 1.5 mg tablet 1.5 mg PO BID rls 04/09/22 [History Last Taken 04/07/22] daptomycin 500 mg intravenous solution 700 mg IV Q48H #27 ea 04/22/22 [Rx Last Taken Unknown] acetaminophen 325 mg tablet (Tylenol) 650 mg PO Q6 #0 tabs 04/24/22 [Rx Last Taken Unknown] albuterol sulfate 2.5 mg/3 mL (0.083 %) solution for nebulization 2.5 mg (3 mL) inhalation Q2H PRN PRN Dyspnea, wheezing #0 mL 04/24/22 [Rx Last Taken Unknown] arginine 7 gram-glutam 7 gram-CaHMB 1.5 [id number]-[id number]-vv-min oral pwd pkt (Ted (with collagen)) 1 packet PO BIDCM #0 ea 04/24/22 [Rx Last Taken Unknown] clopidogrel 75 mg tablet 75 mg PO DAILY #0 tabs 04/24/22 [Rx Last Taken Unknown] insulin glargine-yfgn 100 unit/mL (3 mL) subcutaneous pen 15 unit (0.15 mL) subcut DAILY #0 mL 04/24/22 [Rx Last Taken Unknown] insulin lispro 100 unit/mL subcutaneous pen (Humalog KwikPen (U-100) Insulin) See Protocol subcut ACHS #0 mL 04/24/22 [Rx Last Taken Unknown] lidocaine 5 % topical patch 2 patch topical DAILY #0 ea 04/24/22 [Rx Last Taken Unknown] menthol 0.44 %-zinc oxide 20.6 % topical ointment (Calmoseptine) 1 applic topical TID #0 grams 04/24/22 [Rx Last Taken Unknown] nystatin 100,000 unit/gram topical powder (Nyamyc) 1 applic topical BID #0 grams 04/24/22 [Rx Last Taken Unknown] oxycodone 5 mg tablet 5 mg PO Q6H PRN PRN Pain Score 6-10 2 days #8 tabs 04/24/22 [Rx Last Taken Unknown] pantoprazole 40 mg tablet,delayed release 40 mg PO DAILY #0 tabs 04/24/22 [Rx Last Taken Unknown] sennosides 8.6 mg-docusate sodium 50 mg tablet (Stool Softener-Stimulant Laxative) 2 tab PO BID PRN PRN Constipation #0 tabs 04/24/22 [Rx Last Taken Unknown] sodium bicarbonate 650 mg tablet 1,300 mg PO TID #0 tabs 04/24/22 [Rx Last Taken Unknown] ertapenem 1 gram solution for injection (Invanz) 0.5 g IV QHS 04/27/22 [History Last Taken Unknown] Allergy/AdvReac Type Severity Reaction Status Date / Time Penicillins Allergy swelling Verified 04/27/22 19:53 in throat vancomycin Allergy Itching Verified 04/27/22 19:53 metronidazole AdvReac Nausea Verified 04/27/22 19:53 oxycodone [From OxyContin] AdvReac Shortness Verified 04/27/22 19:53 of breath Family History Mother Diabetes CVA (cerebral vascular accident) Brother CAD (coronary artery disease) CABG X 3 Cancer testicular Diabetes Brother CAD (coronary artery disease) CABG X3 Diabetes Brother CAD (coronary artery disease) Stents Diabetes Sister CAD (coronary artery disease) CABG x 3 CVA (cerebral vascular accident) Diabetes Surgical History History of bilateral carpal tunnel release History of History of coronary artery stent placement (12/31/20) History of foot surgery History of rotator cuff surgery Social History household members: none number of children: 2 current occupational status: disabled Smoking Status: Never smoker alcohol intake: never substance use type: does not use caffeine: Yes Type: carbonated beverages Number of servings: 2 ROS ROS Narrative Pertinent positives and pertinent negatives as noted in HPI. All other systems were reviewed and are negative. Vital Signs Vital Signs Vital Signs: 04/27/22 19:50 04/27/22 19:55 04/27/22 19:55 Temperature 98.1 F Temperature Source Oral Pulse Rate 77 Respiratory Rate 14 Respiratory Effort Normal Blood Pressure 149/76 H Blood Pressure Mean 100 Pulse Ox 92 Oxygen Delivery Method Room Air Weight Weight: 101.8 kg Body Mass Index (BMI) 36.2 Physical Exam Narrative Physical exam: General: Well-nourished, well-developed. Head: Normocephalic, atraumatic, no tenderness Eyes: Vision is grossly intact. EOMI ENT, no trauma, moist mucous membranes, no rhinorrhea Neck: Nontender, full range of motion, no spinal tenderness, deformities, step-off CVS: Regular rate and rhythm. S1-S2 present. No murmur, gallop or rub. Respiratory : clear to auscultation bilaterally, chest wall nontender, no wheezing Abdomen: Soft, nontender, nondistended, normal bowel sounds, no masses : Deferred Back: Nontender, no CVA tenderness, no midline spinal tenderness, deformities, step-offs Extremities: Plantar side of left Foot with scabbed area. Deformed right foot with scabbed areas at plantar side. Lateral left foot with wound and with iodoform packing. Skin: Normal color, no trauma, abrasions Neuro: Alert, oriented, cranial nerves II through XII grossly intact. Psychiatry: Flat affect. Appears depressed. Not anxious. Results Lab / Micro Data Micro: Microbiology 04/27/22 20:22 Stool Stool Occult Blood ([facility]) - Final Occult Blood Positive Assessment & Plan Assessment/Plan (1) ABLA (acute blood loss anemia): (2) Chronic kidney disease, stage 4 (severe): (3) Essential hypertension: (4) Diabetes mellitus with diabetic polyneuropathy: PLAN: Plan Acute blood loss anemia Outpatient CBC was reviewed. Hemoglobin on the same day was 6.6 and a repeat was 6.8. BUN is 80 which is above baseline. Ordered 2 units to be transfused at emergency department. Ordered to check H&H 1 hour the transfusion On Plavix. Patient reports history of multiple coronary stents. Plavix continued. No anticoagulants for DVT prophylaxis SCD Protonix IV twice daily ordered. Emergency plan doctor discussed the case with general surgery on-call. General surgery consult Osteomyelitis Stable Daptomycin and ertapenem continued. Wound care consult. Hypertension Blood pressure is not within goal Carvedilol continued. Trend blood pressure and adjust blood pressure medications. Diabetes mellitus with diabetic polyneuropathy Patient is euglycemic on presentation Monitor Accu-Cheks Gabapentin continued Hold home basal and prandial insulin. CAD status post stents Stable Plavix continued. CKD stage IV Leg secondary to diabetes and hypertension. Stable Trend BMP. DVT prophylaxis SCDs ordered
[2022-04-27 22:13] VITALS: BP 154/74; PULSE 71; RESP 17; TEMP 36.9; O2SAT 93
--- NOTE | 2022-04-27 22:19 | ED.RN ---
Called [facility] and spoke with nurse there to inform them of patients admission to the hospital for GI bleed. Tried to call patients daughter multiple times, when calling its states this caller is not taking calls at this time.
[2022-04-27 22:26] VITALS: BMI 34.1
[2022-04-27 23:47] VITALS: BP 148/76; PULSE 69; RESP 18; TEMP 36.6; O2SAT 95
[2022-04-28 00:02] VITALS: BP 146/87; PULSE 68; RESP 18; TEMP 36.5; O2SAT 94
[2022-04-28] MEDS: Nystatin Powder 15gm Bottle 1 APPLIC TOPICAL ×2 (00:43→10:18)
[2022-04-28] MEDS: Menthol/Lanolin/Calamine/Znox 113 GM Tube 1 APPLIC TOPICAL ×4 (00:43→13:19)
[2022-04-28] MEDS: 0.9% Saline Lock 10 ML Syringe IV ×2 (00:53→06:40)
[2022-04-28] MEDS: Pramipexole Di-HCl 1 MG Tablet 1.5 MG PO ×2 (00:57→10:08)
[2022-04-28] MEDS: Acetaminophen 325 MG Tablet 650 MG PO ×3 (00:59→11:16)
[2022-04-28 01:02] VITALS: BP 158/87; PULSE 71; RESP 20; TEMP 36.7; O2SAT 93
[2022-04-28] MEDS: Sodium Bicarbonate 650 MG Tablet 1300 MG PO ×2 (06:40→13:18)
[2022-04-28 07:00] VITALS: PULSE 66
[2022-04-28 08:23] VITALS: BP 152/94; PULSE 65; RESP 18; TEMP 36.4; O2SAT 97
[2022-04-28 08:39] LABS: Hematocrit 28.1 % (37-47); Hemoglobin 8.5 g/dL (12.0-15.0)
--- NOTE | 2022-04-28 09:35 | EX.PCM.CON.S ---
Assessment & Plan Assessment/Plan (1) Acute on chronic anemia: PLAN: I have been consulted in conjunction with Dr. Mcallister. She will independently evaluate this patient. I have discussed my findings and patient's history with Dr. Mcallister. Continue monitoring of patient's Hgb. Recommend upper and lower scope electively as an outpatient. Patient seems to be asymptomatic at this time. We will need to discuss with cardiology how long the patient can hold her Plavix. Patient states she has been off of her Plavix previously. If patient becomes symptomatic i.e. bright red blood per rectum, melena, etc., we will plan to perform an upper and lower scope sooner. Patient has had the opportunity to ask and have questions answered. Patient may be placed on a diet. Patient verbally understands and agrees with the plan. Thank you for allowing us to participate in this patient's plan. HPI Consult Data Date of Consult: 04/28/22 HPI Narrative Reason for Consultation: Acute anemia. Positive occult blood HPI Narrative: DIONY ROCHA, is a 56 F who presents to the ED from [facility] with acute on chronic anemia. Patient was recently hospitalized from 04/09-04/24 with septic shock secondary to a right diabetic foot wound with MRSA and osteomyelitis. Patient was discharged to [facility] for rehabilitation. Patient has continued to receive IV antibiotics at the [facility] for right foot wound. Patient had routine labs notable for a significant decrease of her Hgb. This prompted her trip to the ED. Her Hgb at the facility was 6.6. Repeat Hgb in the ED was 6.8. Patient did receive 2 units of PRBC after admission. Today's Hgb is 8.5. Patient had a positive occult blood test in the ED. Patient denies melena and bright red blood per rectum. She notes abdominal cramping intermittently. She is unsure what aggravates or alleviates the abdominal cramping. She also notes nausea and vomiting. She states she has a good appetite and was asking where her breakfast tray was. Patient denies having previous scopes. Patient notes her brother had colon cancer at age 52. She denies any previous abdominal surgeries. Patient follows with Dr. Jean Baptiste, cardiology. She has a history of 4 myocardial infarctions with the most recent M.I. last October. She has 4 cardiac stents placed. She is currently on Plavix. She has a history of chronic renal disease. She was following with Dr. Mancilla, however she noted her bond runner was changed due to insurance. [facility] Medical History (Updated 04/28/22 @ 10:31 by Jamee GRANADO, JOLIEC) Acquired varus deformity of left foot Acquired varus deformity of right foot Amputation foot, bilat Anemia due to chronic illness Anxiety and depression Atherosclerosis of [place] coronary artery of [place] heart without angina pectoris Back pain, chronic Bilateral edema of lower extremity Charcot's joint of right foot Chronic renal insufficiency Chronic ulcer of left foot with fat layer exposed Chronic ulcer of right foot with necrosis of muscle COVID-19 (08/28/21) Delayed wound healing Diabetes Diabetic foot ulcer associated with type 2 diabetes mellitus Diabetic infection of left foot Diabetic polyneuropathy Diabetic ulcer of right ankle Elevated troponin Essential (primary) hypertension GERD (gastroesophageal reflux disease) Hemoglobin A1c greater than 9.0% HLD (hyperlipidemia) Hyperparathyroidism, secondary renal Hypertension Iron deficiency anemia Ischemic cardiomyopathy Myocardial infarct Non-compliance Non-smoker Normocytic anemia NSTEMI (non-ST elevated myocardial infarction) (09/20/18) Obesity (BMI 30.0-34.9) Osteomyelitis of left foot RLS (restless legs syndrome) Stage 4 chronic kidney disease TIA (transient ischemic attack) 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 Ulcer of left foot with fat layer exposed Ulcer of left foot with muscle involvement without evidence of necrosis Ulcer of right lower extremity with fat layer exposed Home Medications atorvastatin 80 mg tablet 80 mg PO QHS cholesterol #90 tabs 11/30/19 [Rx Last Taken 04/07/22] isosorbide mononitrate 30 mg tablet,extended release 24 hr 30 mg PO DAILY BP 03/03/21 [History Last Taken 04/07/22] paroxetine HCl 20 mg tablet 20 mg PO DAILY DEPRESSION 07/07/21 [History Last Taken 04/07/22] insulin lispro 100 unit/mL subcutaneous pen (Humalog KwikPen (U-100) Insulin) 5 unit subcut LUNCH dm 11/16/21 [History Last Taken 04/07/22] cyclobenzaprine 5 mg tablet 5 mg PO QHS pain #0 tabs 12/23/21 [Rx Last Taken 04/07/22] gabapentin 300 mg capsule 300 mg BID nerve pain 12/23/21 [History Last Taken 04/07/22] bupropion HCl 150 mg 24 hr tablet, extended release 150 mg PO DAILY mood 02/04/22 [History Last Taken 04/07/22] carvedilol 12.5 mg tablet 12.5 mg PO BID heart 02/04/22 [History Last Taken 04/07/22] hydroxyzine HCl 25 mg tablet 25 mg PO TID PRN Anxiety 02/04/22 [History Last Taken 04/07/22] guaifenesin 600 mg tablet, extended release 12 hr 600 - 1,200 mg PO BID congestion 04/09/22 [History Last Taken 04/07/22] melatonin 5 mg tablet 5 mg PO QHS sleep 04/09/22 [History Last Taken 04/07/22] pramipexole 1.5 mg tablet 1.5 mg PO BID rls 04/09/22 [History Last Taken 04/07/22] daptomycin 500 mg intravenous solution 700 mg IV Q48H #27 ea 04/22/22 [Rx Last Taken Unknown] acetaminophen 325 mg tablet (Tylenol) 650 mg PO Q6 #0 tabs 04/24/22 [Rx Last Taken Unknown] albuterol sulfate 2.5 mg/3 mL (0.083 %) solution for nebulization 2.5 mg (3 mL) inhalation Q2H PRN PRN Dyspnea, wheezing #0 mL 04/24/22 [Rx Last Taken Unknown] clopidogrel 75 mg tablet 75 mg PO DAILY #0 tabs 04/24/22 [Rx Last Taken Unknown] insulin glargine-yfgn 100 unit/mL (3 mL) subcutaneous pen 15 unit (0.15 mL) subcut DAILY #0 mL 04/24/22 [Rx Last Taken Unknown] insulin lispro 100 unit/mL subcutaneous pen (Humalog KwikPen (U-100) Insulin) See Protocol subcut ACHS #0 mL 04/24/22 [Rx Last Taken Unknown] lidocaine 5 % topical patch 2 patch topical DAILY #0 ea 04/24/22 [Rx Last Taken Unknown] menthol 0.44 %-zinc oxide 20.6 % topical ointment (Calmoseptine) 1 applic topical TID #0 grams 04/24/22 [Rx Last Taken Unknown] nystatin 100,000 unit/gram topical powder (Nyamyc) 1 applic topical BID #0 grams 04/24/22 [Rx Last Taken Unknown] oxycodone 5 mg tablet 5 mg PO Q6H PRN PRN Pain Score 6-10 2 days #8 tabs 04/24/22 [Rx Last Taken Unknown] pantoprazole 40 mg tablet,delayed release 40 mg PO DAILY #0 tabs 04/24/22 [Rx Last Taken Unknown] sennosides 8.6 mg-docusate sodium 50 mg tablet (Stool Softener-Stimulant Laxative) 2 tab PO BID PRN PRN Constipation #0 tabs 04/24/22 [Rx Last Taken Unknown] sodium bicarbonate 650 mg tablet 1,300 mg PO TID #0 tabs 04/24/22 [Rx Last Taken Unknown] ertapenem 1 gram solution for injection (Invanz) 0.5 g IV QHS 04/27/22 [History Last Taken Unknown] Allergy/AdvReac Type Severity Reaction Status Date / Time Penicillins Allergy swelling Verified 04/27/22 19:53 in throat vancomycin Allergy Itching Verified 04/27/22 19:53 metronidazole AdvReac Nausea Verified 04/27/22 19:53 oxycodone [From OxyContin] AdvReac Shortness Verified 04/27/22 19:53 of breath Family History Mother Diabetes CVA (cerebral vascular accident) Brother CAD (coronary artery disease) CABG X 3 Cancer testicular Diabetes Brother CAD (coronary artery disease) CABG X3 Diabetes Brother CAD (coronary artery disease) Stents Diabetes Sister CAD (coronary artery disease) CABG x 3 CVA (cerebral vascular accident) Diabetes Surgical History History of bilateral carpal tunnel release History of History of coronary artery stent placement (12/31/20) History of foot surgery History of rotator cuff surgery Social History household members: none number of children: 2 current occupational status: disabled Smoking Status: Never smoker alcohol intake: never substance use type: does not use caffeine: Yes Type: carbonated beverages Number of servings: 2 ROS Eyes Eyes: Reports systems reviewed and no addt'l complaints, except as documented ENT HEENT: Reports systems reviewed and no addt'l complaints, except as documented Cardiovascular Cardiovascular: Reports systems reviewed and no addt'l complaints, except as documented Respiratory/Chest Respiratory/Chest: Reports systems reviewed and no addt'l complaints, except as documented Gastrointestinal Gastrointestinal: Reports systems reviewed and no addt'l complaints, except as documented Genitourinary Genitourinary: Reports systems reviewed and no addt'l complaints, except as documented Musculoskeletal Musculoskeletal: Reports systems reviewed and no addt'l complaints, except as documented Integumentary Integumentary: Reports systems reviewed and no addt'l complaints, except as documented Neurologic Neurologic: Reports systems reviewed and no addt'l complaints, except as documented Psychiatric Psychiatric: Reports systems reviewed and no addt'l complaints, except as documented Endocrine Endocrinology: Reports systems reviewed and no addt'l complaints, except as documented Hematologic/Lymphatic Hematologic/Lymphatic: Reports systems reviewed and no addt'l complaints, except as documented Allergic/Immunologic Allergic/Immunologic: Reports systems reviewed and no addt'l complaints, except as documented Physical Exam Const alert, oriented x3 and no apparent distress HEENT normocephalic Eyes PERRL Neck full ROM Lymph Lymphatic: no lymphadenopathy noted Resp normal respiratory effort Effort and Inspection: able to speak in complete sentences Cardio Rate: regular rate Rhythm: regular rhythm GI soft to palpation Auscultation: normoactive bowel sounds Palpation: tender periumbilical Back/Spine no CVA tenderness Extremity Extremity Narrative: Limited range of motion of the left lower extremity. Wounds noted bilateral feet. Right foot wrapped with Kerlix. Skin Skin Narrative: Bilateral feet ulcerations Neuro Cranial Nerves: CN normal except as noted Psych mental status grossly normal and affect normal Lab / Micro Data Result Diagrams: 04/28/22 08:16 Labs: Laboratory Results - last 24 hr 04/27/22 20:02: Blood Type O POSITIVE, Antibody Screen NEGATIVE, Crossmatch See Detail 04/28/22 08:16: Hgb 8.5 L, Hct 28.1 L Micro: Microbiology 04/27/22 20:22 Stool Stool Occult Blood (MIKE) - Final Occult Blood Positive Charges/Coding Visit Charges Office Visits / Consults: [id number] IP Consult L3
[2022-04-28] MEDS: Clopidogrel Bisulfate 75 MG Tablet PO (10:06)
[2022-04-28] MEDS: Paroxetine 20 MG Tablet PO (10:06)
[2022-04-28] MEDS: Lidocaine 5% Patch 2 PATCH TOPICAL (10:06)
[2022-04-28] MEDS: Isosorbide Mononitrate 30 MG Tablet PO (10:08)
[2022-04-28] MEDS: Carvedilol 12.5 MG Tablet PO (10:09)
[2022-04-28] MEDS: buPROPion (XL) 150 MG TABLET.XL PO (10:09)
[2022-04-28] MEDS: Glucerna Shake 120 ML LIQUID PO ×2 (10:17→13:19)
[2022-04-28] MEDS: Gabapentin 300 MG Capsule PO (10:25)
[2022-04-28] MEDS: oxyCODONE 5 MG Tablet PO (11:16)
--- NOTE | 2022-04-28 11:19 | WOUNDNOTE ---
wound photo: left plantar foot
--- NOTE | 2022-04-28 11:21 | WOUNDNOTE ---
wound photo: right lateral foot
--- NOTE | 2022-04-28 11:39 | CASEMGMT ---
LUCRETIA e-mailed Zoila at [facility] and patient does not need a pre-cert to return as long as she returns today since she is observation status. LUCRETIA notified physician and she will send patient back today. LUCRETIA faxed updates to [facility] and let Zoila know patient will return today. LUCRETIA also asked RN to get a COVID test. Kamilla MCCORD
--- NOTE | 2022-04-28 11:44 | PCM.TXEXTCAR ---
Diet Diet Order/Speech Therapy: 04/28/22 11:21 Diet: Renal - ConsCHO - Howie Cont Is pt able to select menu?: Yes Diet Comments: Except meds with sips How many daily calories?: 1800 calorie Routine Orders/Code Status Suppository Type: Dulcolax 10mg Suppository Frequency: Daily PRN Keep PO Greater than or Equal to (%): 94 Routine Lab Work: CBC (within 3 days) and - (CMP within 3 days) Code Status: Full Code Wound(s) lateral right foot: Wound Type: small open area along healed incision Dressing Change: Packed with Iodoform left plantar foot: Wound Type: Neuropathic/Diabetic Foot Ulcer Dressing Change: AntiMicrobial (Aquacel AG, etc) Therapies Weight Bearing: Non weight bearing Problem/Diagnosis (1) Acute on chronic anemia: Status: Chronic Code(s): D64.9 - Anemia, unspecified Allergies/Procedures Done in Hospital Allergies Penicillins Allergy (Verified 04/27/22 19:53) swelling in throat vancomycin Allergy (Verified 04/27/22 19:53) Itching metronidazole Adverse Reaction (Verified 04/27/22 19:53) Nausea oxycodone [From OxyContin] Adverse Reaction (Verified 04/27/22 19:53) Shortness of breath Procedures: Blood transfusion (2 units of pRBC 04/28/22) Type of Care/Length of Stay Estimated LOS: Convalescent Care Less Than 30 days Type of Care Needed: Skilled Rehab Potential: Good Prognosis: Good Additional Orders/Day of Discharge Additional Orders: Aquacel AG to the wound bed, cover with dry dressing, ABD, wrapped with Kerlix, apply light [place] wrap to assist to hold and dressing in place Day of Discharge: 04/28/22 Dietary and Speech Recommendations Dietitian Recommendations/Changes: recommend cardiac, 1800 calorie controlled diet when medically indicated. OK to continue glucerna 120mL 4x/day until adequate PO intake is established. Will add Ted BID for wounds when medically appropriate. Discharge Plan Admission Admit Date/Time: 04/27/22 21:41 Primary Reason for Your Visit: Severe anemia Attending Provider: Annie Steven Primary Care Provider: Raúl Eric Consulting Providers: Gopi Bach Discharge Orders/Prescriptions Prescriptions: Continued atorvastatin 80 mg tablet 80 mg PO QHS Qty: 90 3RF isosorbide mononitrate 30 mg tablet extended release 24 hr 30 mg PO DAILY Label Comments: TAKE 1 TABLET BY MOUTH DAILY paroxetine HCl 20 mg tablet 20 mg PO DAILY Label Comments: TAKE 1 TABLET BY MOUTH EVERY DAY IN THE EVENING insulin lispro [Humalog KwikPen Insulin] 100 unit/mL insulin pen 5 unit subcut LUNCH gabapentin 300 mg capsule 300 mg BID Label Comments: TAKE 3 CAPSULES BY MOUTH THREE TIMES DAILY FOR 90 DAYS. cyclobenzaprine 5 mg Tablet 5 mg PO QHS Qty: 0 0RF Rx Instructions: can take TID prn for back pain until she can follow-up with pain management carvedilol 12.5 mg Tablet 12.5 mg PO BID hydroxyzine HCl 25 mg Tablet 25 mg PO TID PRN (Reason: Anxiety) bupropion HCl 150 mg tablet extended release 24 hr 150 mg PO DAILY Label Comments: TAKE 1 TABLET BY MOUTH EVERY DAY pramipexole 1.5 mg Tablet 1.5 mg PO BID melatonin 5 mg Tablet 5 mg PO QHS guaifenesin 600 mg Tablet Extended Release 12hr 600 - 1,200 mg PO BID daptomycin 500 mg recon soln 700 mg IV Q48H Qty: 27 0RF Rx Instructions: administer over 30 mins stop date 06/14/22 dx: MRSA osteomyelitis weekly bmp, cbc, LFT, CK, and esr. Fax to [phone] routine picc care with heparin/saline flush per protocol acetaminophen [Tylenol] 325 mg Tablet 650 mg PO Q6 Qty: 0 0RF albuterol sulfate 2.5 mg /3 mL (0.083 %) Solution For Nebulization 2.5 mg inhalation Q2H PRN PRN (Reason: Dyspnea, wheezing) Qty: 0 0RF sennosides-docusate sodium [Stool Softener-Stimulant Laxat] 8.6-50 mg Tablet 2 tab PO BID PRN PRN (Reason: Constipation) Qty: 0 0RF clopidogrel 75 mg Tablet 75 mg PO DAILY Qty: 0 0RF sodium bicarbonate 650 mg Tablet 1,300 mg PO TID Qty: 0 0RF lidocaine 5 % Adhesive Patch,Medicated 2 patch topical DAILY Qty: 0 0RF Protocol: *Topical Application Instructions APPLICATION INSTRUCTIONS: 1 patch per leg nystatin [Nyamyc] 100,000 unit/gram Powder 1 applic topical BID Qty: 0 0RF Protocol: *Topical Application Instructions APPLICATION INSTRUCTIONS: vinicius area oxycodone 5 mg Tablet 5 mg PO Q6H PRN PRN (Reason: Pain Score 6-10) 2 Days Qty: 8 0RF insulin lispro [Humalog KwikPen Insulin] 100 unit/mL Insulin Pen See Protocol subcut ACHS Qty: 0 0RF Protocol: 3. Sliding Scale Insulin Med Dosing Condition: 150-189 mg/dl = 1 unit Condition: 190-229 mg/dl = 2 units Condition: 230-269 mg/dl = 3 units Condition: 270-309 mg/dl = 4 units Condition: 310-349 mg/dl = 5 units Condition: 350-399 mg/dl = 6 units Condition: 400-449 mg/dl = 7 units Condition: Greater than 449 call physician Protocol Text: - Use for Total Daily Dose of Insulin 37-55 units - Obsese, infected, or steroid patients MEDIUM DOSING ALGORITHIM menthol-zinc oxide [Calmoseptine] 0.44-20.6 % Ointment 1 applic topical TID Qty: 0 0RF Protocol: *Topical Application Instructions APPLICATION INSTRUCTIONS: buttocks insulin glargine-yfgn 100 unit/mL (3 mL) Insulin Pen 15 unit subcut DAILY Qty: 0 0RF ertapenem [Invanz] 1 gram recon soln 0.5 g IV QHS Rx Instructions: stop date 06/14/22 dx: MRSA osteomyelitis weekly bmp, cbc, LFT, CK, and esr. Fax to [phone] routine picc care with heparin/saline flush per protocol Changed pantoprazole 40 mg Tablet,Delayed Release (Dr/Ec) 40 mg PO BIDCM Qty: 0 0RF Referrals / Follow Up: Angel Joel MD [STAFF PHYSICIAN] - Within 2 Weeks Raúl Eric MD [Primary Care Provider] - None Kike Tello MD [STAFF PHYSICIAN] - Within 2 Weeks Mónica Mcallister MD [STAFF PHYSICIAN] - Within 2 Weeks Disposition Disposition (needs filled in before D/C Order can be placed): [facility]
--- NOTE | 2022-04-28 11:53 | PHA.DC.MR ---
Pharmacy Service has performed discharge medication reconciliation for this patient. The patient's discharge medication list was reviewed for discrepancies and discrepancies were resolved. Home Medications atorvastatin 80 mg tablet 80 mg PO QHS cholesterol #90 tabs 11/30/19 isosorbide mononitrate 30 mg tablet,extended release 24 hr 30 mg PO DAILY BP 03/03/21 paroxetine HCl 20 mg tablet 20 mg PO DAILY DEPRESSION 07/07/21 insulin lispro 100 unit/mL subcutaneous pen (Humalog KwikPen (U-100) Insulin) 5 unit subcut LUNCH dm 11/16/21 cyclobenzaprine 5 mg tablet 5 mg PO QHS pain #0 tabs 12/23/21 gabapentin 300 mg capsule 300 mg BID nerve pain 12/23/21 bupropion HCl 150 mg 24 hr tablet, extended release 150 mg PO DAILY mood 02/04/22 carvedilol 12.5 mg tablet 12.5 mg PO BID heart 02/04/22 hydroxyzine HCl 25 mg tablet 25 mg PO TID PRN Anxiety 02/04/22 guaifenesin 600 mg tablet, extended release 12 hr 600 - 1,200 mg PO BID congestion 04/09/22 melatonin 5 mg tablet 5 mg PO QHS sleep 04/09/22 pramipexole 1.5 mg tablet 1.5 mg PO BID rls 04/09/22 daptomycin 500 mg intravenous solution 700 mg IV Q48H #27 ea 04/22/22 acetaminophen 325 mg tablet (Tylenol) 650 mg PO Q6 #0 tabs 04/24/22 albuterol sulfate 2.5 mg/3 mL (0.083 %) solution for nebulization 2.5 mg (3 mL) inhalation Q2H PRN PRN Dyspnea, wheezing #0 mL 04/24/22 clopidogrel 75 mg tablet 75 mg PO DAILY #0 tabs 04/24/22 insulin glargine-yfgn 100 unit/mL (3 mL) subcutaneous pen 15 unit (0.15 mL) subcut DAILY #0 mL 04/24/22 insulin lispro 100 unit/mL subcutaneous pen (Humalog KwikPen (U-100) Insulin) See Protocol subcut ACHS #0 mL 04/24/22 lidocaine 5 % topical patch 2 patch topical DAILY #0 ea 04/24/22 menthol 0.44 %-zinc oxide 20.6 % topical ointment (Calmoseptine) 1 applic topical TID #0 grams 04/24/22 nystatin 100,000 unit/gram topical powder (Nyamyc) 1 applic topical BID #0 grams 04/24/22 oxycodone 5 mg tablet 5 mg PO Q6H PRN PRN Pain Score 6-10 2 days #8 tabs 04/24/22 sennosides 8.6 mg-docusate sodium 50 mg tablet (Stool Softener-Stimulant Laxative) 2 tab PO BID PRN PRN Constipation #0 tabs 04/24/22 sodium bicarbonate 650 mg tablet 1,300 mg PO TID #0 tabs 04/24/22 ertapenem 1 gram solution for injection (Invanz) 0.5 g IV QHS 04/27/22 ferrous sulfate 325 mg (65 mg iron) tablet 325 mg PO DAILY 30 days #30 tabs 04/28/22 pantoprazole 40 mg tablet,delayed release 40 mg PO BIDCM #0 tabs 04/28/22
--- NOTE | 2022-04-28 11:56 | PCM.DC.SUM ---
Providers Date of Admission: 04/27/22 Date of Discharge: 04/28/22 Primary Care Physician: Dr. 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 Routine Comment: Reason for Consult:: wounds of bilateral feet Reason For Visit: ABLA Diagnosis Discharge Diagnosis (1) Acute on chronic anemia: Status: Chronic Code(s): D64.9 - Anemia, unspecified Medications at Discharge Home Medications atorvastatin 80 mg tablet 80 mg PO QHS cholesterol #90 tabs 11/30/19 isosorbide mononitrate 30 mg tablet,extended release 24 hr 30 mg PO DAILY BP 03/03/21 paroxetine HCl 20 mg tablet 20 mg PO DAILY DEPRESSION 07/07/21 insulin lispro 100 unit/mL subcutaneous pen (Humalog KwikPen (U-100) Insulin) 5 unit subcut LUNCH dm 11/16/21 cyclobenzaprine 5 mg tablet 5 mg PO QHS pain #0 tabs 12/23/21 gabapentin 300 mg capsule 300 mg BID nerve pain 12/23/21 bupropion HCl 150 mg 24 hr tablet, extended release 150 mg PO DAILY mood 02/04/22 carvedilol 12.5 mg tablet 12.5 mg PO BID heart 02/04/22 hydroxyzine HCl 25 mg tablet 25 mg PO TID PRN Anxiety 02/04/22 guaifenesin 600 mg tablet, extended release 12 hr 600 - 1,200 mg PO BID congestion 04/09/22 melatonin 5 mg tablet 5 mg PO QHS sleep 04/09/22 pramipexole 1.5 mg tablet 1.5 mg PO BID rls 04/09/22 daptomycin 500 mg intravenous solution 700 mg IV Q48H #27 ea 04/22/22 acetaminophen 325 mg tablet (Tylenol) 650 mg PO Q6 #0 tabs 04/24/22 albuterol sulfate 2.5 mg/3 mL (0.083 %) solution for nebulization 2.5 mg (3 mL) inhalation Q2H PRN PRN Dyspnea, wheezing #0 mL 04/24/22 clopidogrel 75 mg tablet 75 mg PO DAILY #0 tabs 04/24/22 insulin glargine-yfgn 100 unit/mL (3 mL) subcutaneous pen 15 unit (0.15 mL) subcut DAILY #0 mL 04/24/22 insulin lispro 100 unit/mL subcutaneous pen (Humalog KwikPen (U-100) Insulin) See Protocol subcut ACHS #0 mL 04/24/22 lidocaine 5 % topical patch 2 patch topical DAILY #0 ea 04/24/22 menthol 0.44 %-zinc oxide 20.6 % topical ointment (Calmoseptine) 1 applic topical TID #0 grams 04/24/22 nystatin 100,000 unit/gram topical powder (Nyamyc) 1 applic topical BID #0 grams 04/24/22 oxycodone 5 mg tablet 5 mg PO Q6H PRN PRN Pain Score 6-10 2 days #8 tabs 04/24/22 sennosides 8.6 mg-docusate sodium 50 mg tablet (Stool Softener-Stimulant Laxative) 2 tab PO BID PRN PRN Constipation #0 tabs 04/24/22 sodium bicarbonate 650 mg tablet 1,300 mg PO TID #0 tabs 04/24/22 ertapenem 1 gram solution for injection (Invanz) 0.5 g IV QHS 04/27/22 ferrous sulfate 325 mg (65 mg iron) tablet 325 mg PO DAILY 30 days #30 tabs 04/28/22 pantoprazole 40 mg tablet,delayed release 40 mg PO BIDCM #0 tabs 04/28/22 Hospital Course Operations None Procedures Blood transfusion Summary of Care Provided Minutes Spent on Discharge: 35 Hospital Course: 56-year-old female with multiple comorbidities including type II DM, complicated by peripheral neuropathy, diabetic left foot ulcer, Charcot right foot, CKD stage IV, recently discharged after admission for septic shock, staph aureus bacteremia, acute kidney injury, cellulitis, abscess, osteomyelitis. Patient was discharged to a shelter facility. She was admitted yesterday 04/27/22 on account of abnormal blood work. Hemoglobin in the intermediate was 6.6. Repeat hemoglobin was 6.8. Patient denied any melena or hematochezia or hematemesis. Stool for occult blood was positive. Patient was admitted and transfused 2 units of packed RBC. Repeat hemoglobin was 8.5. General surgery was consulted. Recommended outpatient colonoscopy. Patient was continued on oral iron and her PPI increased to 40 mg twice a day. She was continued on her IV antibiotics was here. On the day of discharge, patient was seen and examined. She felt improved. She was discharged to follow-up with nephrology, general surgery, ID as recently scheduled all per previous discharge plan on 04/24/22. Physical Exam Narrative Physical exam: General: Alert, Oriented x3, Cooperative, No apparent distress HEENT: Atraumatic Oral: Moist Mucosa Neck: Supple Lungs: Clear to auscultation Cardiovascular: HS I+II, regular, no murmurs Abdomen: Bowel Sounds Present, Soft, Non Tender Extremities: Bilateral [place] wrap to the lower extremities Skin: No rashes, No breakdown Neurological: Grossly intact Psych/Mental Status: Appropriate Weight / BMI Weight Weight: 96 kg Body Mass Index (BMI) 34.1 ABG / Lab / Microbiology Data Result Diagrams: 04/28/22 08:16 Laboratory: Laboratory Results - last 24 hr 04/27/22 20:02: Blood Type O POSITIVE, Antibody Screen NEGATIVE, Crossmatch See Detail 04/28/22 08:16: Hgb 8.5 L, Hct 28.1 L Microbiology: Microbiology 04/27/22 20:22 Stool Stool Occult Blood (MIKE) - Final Occult Blood Positive D/C Instructions Discharge Diet: Renal Diet Discharge Activity: - (Non-weight bearing) Meaningful Use Info Meaningful Use Diagnoses (Choose all that apply): None applicable Discharge Plan Admission Admit Date/Time: 04/27/22 21:41 Primary Reason for Your Visit: Severe anemia Attending Provider: Annie Steven Primary Care Provider: Raúl Eric Consulting Providers: Gopi Bach Discharge Orders/Prescriptions Prescriptions: New ferrous sulfate 325 mg (65 mg iron) tablet 325 mg PO DAILY 30 Days Qty: 30 0RF Continued atorvastatin 80 mg tablet 80 mg PO QHS Qty: 90 3RF isosorbide mononitrate 30 mg tablet extended release 24 hr 30 mg PO DAILY Label Comments: TAKE 1 TABLET BY MOUTH DAILY paroxetine HCl 20 mg tablet 20 mg PO DAILY Label Comments: TAKE 1 TABLET BY MOUTH EVERY DAY IN THE EVENING insulin lispro [Humalog KwikPen Insulin] 100 unit/mL insulin pen 5 unit subcut LUNCH gabapentin 300 mg capsule 300 mg BID Label Comments: TAKE 3 CAPSULES BY MOUTH THREE TIMES DAILY FOR 90 DAYS. cyclobenzaprine 5 mg Tablet 5 mg PO QHS Qty: 0 0RF Rx Instructions: can take TID prn for back pain until she can follow-up with pain management carvedilol 12.5 mg Tablet 12.5 mg PO BID hydroxyzine HCl 25 mg Tablet 25 mg PO TID PRN (Reason: Anxiety) bupropion HCl 150 mg tablet extended release 24 hr 150 mg PO DAILY Label Comments: TAKE 1 TABLET BY MOUTH EVERY DAY pramipexole 1.5 mg Tablet 1.5 mg PO BID melatonin 5 mg Tablet 5 mg PO QHS guaifenesin 600 mg Tablet Extended Release 12hr 600 - 1,200 mg PO BID daptomycin 500 mg recon soln 700 mg IV Q48H Qty: 27 0RF Rx Instructions: administer over 30 mins stop date 06/14/22 dx: MRSA osteomyelitis weekly bmp, cbc, LFT, CK, and esr. Fax to [phone] routine picc care with heparin/saline flush per protocol acetaminophen [Tylenol] 325 mg Tablet 650 mg PO Q6 Qty: 0 0RF albuterol sulfate 2.5 mg /3 mL (0.083 %) Solution For Nebulization 2.5 mg inhalation Q2H PRN PRN (Reason: Dyspnea, wheezing) Qty: 0 0RF sennosides-docusate sodium [Stool Softener-Stimulant Laxat] 8.6-50 mg Tablet 2 tab PO BID PRN PRN (Reason: Constipation) Qty: 0 0RF clopidogrel 75 mg Tablet 75 mg PO DAILY Qty: 0 0RF sodium bicarbonate 650 mg Tablet 1,300 mg PO TID Qty: 0 0RF lidocaine 5 % Adhesive Patch,Medicated 2 patch topical DAILY Qty: 0 0RF Protocol: *Topical Application Instructions APPLICATION INSTRUCTIONS: 1 patch per leg nystatin [Nyamyc] 100,000 unit/gram Powder 1 applic topical BID Qty: 0 0RF Protocol: *Topical Application Instructions APPLICATION INSTRUCTIONS: vinicius area oxycodone 5 mg Tablet 5 mg PO Q6H PRN PRN (Reason: Pain Score 6-10) 2 Days Qty: 8 0RF insulin lispro [Humalog KwikPen Insulin] 100 unit/mL Insulin Pen See Protocol subcut ACHS Qty: 0 0RF Protocol: 3. Sliding Scale Insulin Med Dosing Condition: 150-189 mg/dl = 1 unit Condition: 190-229 mg/dl = 2 units Condition: 230-269 mg/dl = 3 units Condition: 270-309 mg/dl = 4 units Condition: 310-349 mg/dl = 5 units Condition: 350-399 mg/dl = 6 units Condition: 400-449 mg/dl = 7 units Condition: Greater than 449 call physician Protocol Text: - Use for Total Daily Dose of Insulin 37-55 units - Obsese, infected, or steroid patients MEDIUM DOSING ALGORITHIM menthol-zinc oxide [Calmoseptine] 0.44-20.6 % Ointment 1 applic topical TID Qty: 0 0RF Protocol: *Topical Application Instructions APPLICATION INSTRUCTIONS: buttocks insulin glargine-yfgn 100 unit/mL (3 mL) Insulin Pen 15 unit subcut DAILY Qty: 0 0RF ertapenem [Invanz] 1 gram recon soln 0.5 g IV QHS Rx Instructions: stop date 06/14/22 dx: MRSA osteomyelitis weekly bmp, cbc, LFT, CK, and esr. Fax to [phone] routine picc care with heparin/saline flush per protocol Changed pantoprazole 40 mg Tablet,Delayed Release (Dr/Ec) 40 mg PO BIDCM Qty: 0 0RF Referrals / Follow Up: Angel Joel MD [STAFF PHYSICIAN] - Within 2 Weeks Raúl Eric MD [Primary Care Provider] - None Kike Tello MD [STAFF PHYSICIAN] - Within 2 Weeks Mónica Mcallister MD [STAFF PHYSICIAN] - Within 2 Weeks Disposition Disposition (needs filled in before D/C Order can be placed): Long Term Facility Charges/Coding Visit Charges Inpatient E&M: 23101 Disch Hosp
[2022-04-28 12:25] LABS: Ferritin 495 ng/mL (8-252); Iron 68 ug/dL (50-170); Iron Binding Capacity,Total 253 ug/dL (250-450); PERCENT IRON SATURATION 26.9 % (15.0-55.0)
[2022-04-28] MEDS: Alteplase 2 MG/2 ML Vial IV (13:11)
--- NOTE | 2022-04-28 13:12 | CASEMGMT ---
LUCRETIA arranged for patient to get picked up at 2p via cot. LUCRETIA faxed and e-mailed orders and negative COVID test to Zoila at [facility]. LUCRETIA notified RN, executive secretary social welfare, and Zoila at [facility]. Plan: d/c back to [facility] under skilled level of care. [facility] via [facility]. Kamilla MCCORD
[2022-04-28 13:25] VITALS: BP 168/95; PULSE 70; RESP 16; TEMP 36.6; O2SAT 96
--- NOTE | 2022-04-28 14:21 | NURSING ---
Report given to Dayan IGLESIAS at [facility]
== END 2022-04-28 11:21 | disposition skilled nursing facility (03) ==
LOC: ED 21:43 → PCU 21:52
PROVIDERS: Admitting Provider Hospitalist; Emergency Provider Student in an Organized Health Care Education/Training Program; PCP Family Medicine; Visit Provider Internal Medicine
DX: D62 Acute posthemorrhagic anemia (principal); E11.621 Type 2 diabetes mellitus with foot ulcer; L97.512 Non-pressure chronic 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 layer exposed; L97.522 Non-pressure chronic ulcer of other part of left foot with fat layer exposed; M86.9 Osteomyelitis, unspecified; E11.22 Type 2 diabetes mellitus with diabetic chronic kidney disease; E11.610 Type 2 diabetes mellitus with diabetic neuropathic arthropathy; E11.42 Type 2 diabetes mellitus with diabetic polyneuropathy; E11.69 Type 2 diabetes mellitus with other specified complication; N18.4 Chronic kidney disease, stage 4 (severe); Z79.4 Long term (current) use of insulin; I12.9 Hypertensive chronic kidney disease with stage 1 through stage 4 chronic kidney disease, or unspecified chronic kidney disease; K92.2 Gastrointestinal hemorrhage, unspecified; F41.9 Anxiety disorder, unspecified; Z86.16 Personal history of COVID-19; I25.10 Atherosclerotic heart disease of native coronary artery without angina pectoris; I25.5 Ischemic cardiomyopathy; E78.5 Hyperlipidemia, unspecified; D63.8 Anemia in other chronic diseases classified elsewhere; F32.A Depression, unspecified; Z79.899 Other long term (current) drug therapy; E66.9 Obesity, unspecified; Z68.34 Body mass index [BMI] 34.0-34.9, adult; I25.2 Old myocardial infarction; K21.9 Gastro-esophageal reflux disease without esophagitis; Z79.02 Long term (current) use of antithrombotics/antiplatelets; B95.62 Methicillin resistant Staphylococcus aureus infection as the cause of diseases classified elsewhere
CPT/HCPCS: 36415; 36430; 36592; 82274; 82728; 83540; 83550; 85014; 85018; 86850; 86900; 86901; 86920; 86922; 87426; 96365; 96366; 96367; 97802; 99218; 99284; J0878; J2997; J7030; J7040; P9016; A4216; G0378; J3490

== ENCOUNTER → 2022-04-27 | Outpatient (REF) | payer SELFPAY ==
[2018-09-21 13:23] VITALS: BMI 29.3
[2022-04-27 08:59] LABS: Hematocrit 22.3 % (37-47); Hemoglobin 6.6 g/dL (12.0-15.0); Mean Corp Hgb Conc 29.6 g/dL (32-36); Mean Corpuscular Hgb 27.5 pg (27.0-32.0); Mean Corpuscular Volume 92.9 fL (81-99); Mean Platelet Vol. 11.6 fl (6.2-12.0); Platelet Count 243 K/mm3 (150-450); RBC Distribution Width CV 18.2 % (11.6-14.6); White Blood Count 9.6 K/mm3 (4.4-11.0)
[2022-04-27 09:00] LABS: Erythrocyte Sedimentation Rate 67 mm/hr (0-30)
[2022-04-27 09:30] LABS: AST(SGOT) 30 U/L (15-37); Alanine Aminotransfer ALT/SGPT 25 U/L (13-56); Albumin, Serum 1.2 g/dL (3.2-5.0); Alkaline Phosphatase 295 U/L (45-117); Anion Gap 7 (5-15); BUN 80 mg/dL (7-18); BUN/Creat Ratio 34.6 RATIO (10-20); Bilirubin, Direct 0.14 mg/dL (0.00-0.30); CPK Total, Creatine Kinase 50 U/L (26-192); Calcium,Total 8.1 mg/dL (8.5-10.1); Chloride 111 mmol/L (98-107); Creatinine, Serum 2.31 mg/dL (0.55-1.02); EST Glomerular Filtration Rate 23 mL/min (>60); Est Glom Filt Rate - Afr Amer 28 mL/min (>60); Globulin 4.7 g/dL (2.2-4.2); Glucose 93 mg/dL (74-106); Protein, Total 5.9 g/dL (6.4-8.2); Sodium Level 142 mmol/L (136-145)
[2022-04-27 14:42] LABS: Hematocrit 22.3 % (37-47); Hemoglobin 6.8 g/dL (12.0-15.0); Mean Corp Hgb Conc 30.5 g/dL (32-36); Mean Corpuscular Hgb 27.9 pg (27.0-32.0); Mean Corpuscular Volume 91.4 fL (81-99); Mean Platelet Vol. 10.8 fl (6.2-12.0); Platelet Count 242 K/mm3 (150-450); RBC Distribution Width CV 18.3 % (11.6-14.6); Red Blood Count 2.44 M/mm3 (4.2-5.4); White Blood Count 10.6 K/mm3 (4.4-11.0)
== END | disposition home or self-care (01) ==
LOC: OLS.SW1020 04:00
PROVIDERS: PCP Family Medicine; Visit Provider Internal Medicine
DX: M86.9 Osteomyelitis, unspecified (principal); N18.9 Chronic kidney disease, unspecified; D63.1 Anemia in chronic kidney disease
CPT/HCPCS: 36415; 80048; 80076; 82550; 85027; 85652

== ENCOUNTER → 2022-05-04 | Outpatient (REF) | payer SELFPAY ==
[2018-09-21 13:23] VITALS: BMI 29.3
[2022-05-04 09:07] LABS: Erythrocyte Sedimentation Rate 99 mm/hr (0-30)
[2022-05-04 09:09] LABS: Absolute Lymphocyte Count 0.85 X10^3/uL (0.83-4.51); Absolute Neutrophil Count 4.3 X10^3/uL (2.0-7.7); Basophil# 0.05 X10^3/uL; Basophil% 0.8 % (0-1); Eosinophil# 0.51 X10^3/uL; Eosinophils% 8.2 % (0-5); Hematocrit 28.3 % (37-47); Hemoglobin 8.4 g/dL (12.0-15.0); Lymphocyte # 0.85 X10^3/ul (0.83-4.51); Lymphocyte % 13.7 % (19-41); Mean Corp Hgb Conc 29.7 g/dL (32-36); Mean Corpuscular Hgb 27.3 pg (27.0-32.0); Mean Corpuscular Volume 91.9 fL (81-99); Mean Platelet Vol. 10.8 fl (6.2-12.0); Monocyte# 0.48 X10^3/uL; Monocyte% 7.7 % (0-10); NRBC Flagged by Analyzer 0 % (0-5); Neutrophil % 69.3 % (47-70); Platelet Count 334 K/mm3 (150-450); RBC Distribution Width CV 18.2 % (11.6-14.6); RBC Distribution Width SD 59.7 fl (35.1-43.9); Red Blood Count 3.08 M/mm3 (4.2-5.4); White Blood Count 6.2 K/mm3 (4.4-11.0)
[2022-05-04 09:25] LABS: AST(SGOT) 31 U/L (15-37); Alanine Aminotransfer ALT/SGPT 20 U/L (13-56); Albumin, Serum 1.3 g/dL (3.2-5.0); Alkaline Phosphatase 292 U/L (45-117); Anion Gap 3 (5-15); BUN 81 mg/dL (7-18); BUN/Creat Ratio 27.2 RATIO (10-20); Bilirubin, Direct 0.15 mg/dL (0.00-0.30); Calcium,Total 8.3 mg/dL (8.5-10.1); Chloride 112 mmol/L (98-107); Creatinine, Serum 2.98 mg/dL (0.55-1.02); EST Glomerular Filtration Rate 17 mL/min (>60); Est Glom Filt Rate - Afr Amer 21 mL/min (>60); Globulin 5.3 g/dL (2.2-4.2); Glucose 72 mg/dL (74-106); Potassium 5.7 mmol/L (3.5-5.1); Protein, Total 6.6 g/dL (6.4-8.2); Sodium Level 140 mmol/L (136-145)
== END | disposition home or self-care (01) ==
LOC: OLS.SW1020 05:00
PROVIDERS: PCP Family Medicine; Visit Provider Internal Medicine
DX: I12.9 Hypertensive chronic kidney disease with stage 1 through stage 4 chronic kidney disease, or unspecified chronic kidney disease (principal); A41.9 Sepsis, unspecified organism; N18.4 Chronic kidney disease, stage 4 (severe); L03.115 Cellulitis of right lower limb; L03.116 Cellulitis of left lower limb; R53.83 Other fatigue; D64.9 Anemia, unspecified
CPT/HCPCS: 36415; 80048; 80076; 85025; 85652

== ENCOUNTER 2022-05-05 10:05 | Inpatient (IN) | payer MEDICARE, MEDICAID, SELFPAY ==
[2018-09-21 13:23] VITALS: BMI 29.3
[2022-05-05] VITALS (12 sets, daily range): BP systolic 142–179; BP diastolic 75–101; PULSE 52–80; RESP 11–20; TEMP 33.6–36.4; O2SAT 95–99; BMI 36.8; BMI 35.1
--- NOTE | 2022-05-05 10:09 | CT_ITS ---
STUDY: CT BRAIN WITHOUT CONTRAST REASON FOR EXAM: Female, 56 years old. Acute altered mental status RADIATION DOSAGE (If Supplied By Facility): CTDIvol = ( 44.99 ) mGy, DLP = ( 745.49 ) mGycm TECHNIQUE: Transaxial CT imaging of the brain was performed without administration of intravenous contrast material. Individualized dose optimization techniques were used for this CT. COMPARISON: Comparison is made with prior study dated 04/16/2022. FINDINGS: Normal soft tissue structures. Normal calvarium. There is mild cerebral atrophy with widening of the extra-axial spaces and ventricular dilatation. There are areas of decreased attenuation within the white matter tracts of the supratentorial brain, consistent with microvascular disease changes. Stable focal lacunae in the right basal ganglion. Stable focal lacunae in the head of the left caudate nucleus. Normal brainstem. Normal cerebellum. There is no intracranial hemorrhage. There are no findings of an acute ischemic infarction. Normal visualized paranasal sinuses. CT/Brain/Head without Contrast IMPRESSION: Chronic involutional changes of the brain. Small old lacunar infarct in the basal ganglia. Electronically Signed: Ronnie Saavedra MD at 11:10 EDT ,
--- NOTE | 2022-05-05 10:09 | EKG12_ITS ---
Test Reason : Hypoglycemia Blood Pressure : / mmHG Vent. Rate : 058 BPM Atrial Rate : 058 BPM P-R Int : 178 ms QRS Dur : 086 ms QT Int : 482 ms P-R-T Axes : 058 045 -74 degrees QTc Int : 473 ms Sinus bradycardia Cannot rule out Anterior infarct , age undetermined Abnormal ECG Confirmed by MARIELENA DELVALLE, SINDY ([id number]), marketing editor HARINI PHAM ([id number]) on 05/10/2022 11:06:21 AM Referred By: Salazar Confirmed By:MARISOL PEGUERO MD
--- NOTE | 2022-05-05 10:15 | EX.ED.DYSGE1 ---
HPI History of Present Illness Chief Complaint: Hypoglycemia Detail of Chief Complaint: Altered mental status, hypoglycemia Informant: EMS and SNF Onset/Context/Timing Onset: Today Context: Sudden Onset Timing: Continuous Quality: Blood sugar 33, history of sepsis due to MRSA Location: Suspect diabetic foot ulcer/infection Current Severity: Moderate Maximum Severity: Severe Worsened by: Hypoglycemia and infection Relieved by: Nothing Associated Symptoms Associated Symptoms: Unable to determine Narrative Narrative: Patient is a 56-year-old woman who resides at nursing facility. She was recently admitted for sepsis and antibiotics were ordered to start today for MRSA. Patient unable to contribute to history. Her speech is garbled. She does know the month. There is little information was obtained. She does know her age. Prior similar symptoms: No Recent Illness/Hospitalization: Yes [facility] Medical History Acquired varus deformity of left foot Acquired varus deformity of right foot Amputation foot, bilat Anemia due to chronic illness Anxiety and depression Atherosclerosis of [place] coronary artery of [place] heart without angina pectoris Back pain, chronic Bilateral edema of lower extremity Charcot's joint of right foot Chronic renal insufficiency Chronic ulcer of left foot with fat layer exposed Chronic ulcer of right foot with necrosis of muscle COVID-19 (08/28/21) Delayed wound healing Diabetes Diabetic foot ulcer associated with type 2 diabetes mellitus Diabetic infection of left foot Diabetic polyneuropathy Diabetic ulcer of right ankle Elevated troponin Essential (primary) hypertension GERD (gastroesophageal reflux disease) Hemoglobin A1c greater than 9.0% HLD (hyperlipidemia) Hyperparathyroidism, secondary renal Hypertension Iron deficiency anemia Ischemic cardiomyopathy Myocardial infarct Non-compliance Non-smoker Normocytic anemia NSTEMI (non-ST elevated myocardial infarction) (09/20/18) Obesity (BMI 30.0-34.9) Osteomyelitis of left foot RLS (restless legs syndrome) Stage 4 chronic kidney disease TIA (transient ischemic attack) 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 Ulcer of left foot with fat layer exposed Ulcer of left foot with muscle involvement without evidence of necrosis Ulcer of right lower extremity with fat layer exposed Home Medications atorvastatin 80 mg tablet 80 mg PO QHS cholesterol #90 tabs 11/30/19 [Rx Last Taken 04/07/22] isosorbide mononitrate 30 mg tablet,extended release 24 hr 30 mg PO DAILY BP 03/03/21 [History Last Taken 04/07/22] paroxetine HCl 20 mg tablet 20 mg PO DAILY DEPRESSION 07/07/21 [History Last Taken 04/07/22] cyclobenzaprine 5 mg tablet 5 mg PO QHS pain #0 tabs 12/23/21 [Rx Last Taken 04/07/22] gabapentin 300 mg capsule 300 mg BID nerve pain 12/23/21 [History Last Taken 04/07/22] bupropion HCl 150 mg 24 hr tablet, extended release 150 mg PO DAILY mood 02/04/22 [History Last Taken 04/07/22] carvedilol 12.5 mg tablet 12.5 mg PO BID heart 02/04/22 [History Last Taken 04/07/22] hydroxyzine HCl 25 mg tablet 25 mg PO TID PRN Anxiety 02/04/22 [History Last Taken 04/07/22] guaifenesin 600 mg tablet, extended release 12 hr 600 mg PO BID congestion 04/09/22 [History Last Taken 04/07/22] melatonin 5 mg tablet 5 mg PO QHS sleep 04/09/22 [History Last Taken 04/07/22] pramipexole 1.5 mg tablet 1.5 mg PO BID rls 04/09/22 [History Last Taken 04/07/22] daptomycin 500 mg intravenous solution 700 mg IV Q48H #27 ea 04/22/22 [Rx Last Taken Unknown] albuterol sulfate 2.5 mg/3 mL (0.083 %) solution for nebulization 2.5 mg (3 mL) inhalation Q2H PRN PRN Dyspnea, wheezing #0 mL 04/24/22 [Rx Last Taken Unknown] clopidogrel 75 mg tablet 75 mg PO DAILY #0 tabs 04/24/22 [Rx Last Taken Unknown] insulin lispro 100 unit/mL subcutaneous pen (Humalog KwikPen (U-100) Insulin) See Protocol subcut ACHS #0 mL 04/24/22 [Rx Last Taken Unknown] menthol 0.44 %-zinc oxide 20.6 % topical ointment (Calmoseptine) 1 applic topical TID #0 grams 04/24/22 [Rx Last Taken Unknown] nystatin 100,000 unit/gram topical powder (Nyamyc) 1 applic topical BID #0 grams 04/24/22 [Rx Last Taken Unknown] oxycodone 5 mg tablet 5 mg PO Q6H PRN PRN Pain Score 6-10 2 days #8 tabs 04/24/22 [Rx Last Taken Unknown] sennosides 8.6 mg-docusate sodium 50 mg tablet (Stool Softener-Stimulant Laxative) 2 tab PO BID PRN PRN Constipation #0 tabs 04/24/22 [Rx Last Taken Unknown] sodium bicarbonate 650 mg tablet 1,300 mg PO TID #0 tabs 04/24/22 [Rx Last Taken Unknown] ertapenem 1 gram solution for injection (Invanz) 0.5 g IV QHS 04/27/22 [History Last Taken Unknown] ferrous sulfate 325 mg (65 mg iron) tablet 325 mg PO DAILY 30 days #30 tabs 04/28/22 [Rx Last Taken Unknown] pantoprazole 40 mg tablet,delayed release 40 mg PO BIDCM #0 tabs 04/28/22 [Rx Last Taken Unknown] Lactobacillus rhamnosus GG 1 unit PO/SL BID 05/05/22 [History Last Taken Unknown] acetaminophen 325 mg tablet (Tylenol) 650 mg PO Q4H PRN PRN pain or temperature 05/05/22 [History Last Taken Unknown] ascorbic acid (vitamin C) 500 mg tablet (Vitamin C) 500 mg PO BID 05/05/22 [History Last Taken Unknown] insulin glargine 100 unit/mL (3 mL) subcutaneous pen 15 unit subcut BREAKFAST 05/05/22 [History Last Taken Unknown] insulin glargine 100 unit/mL (3 mL) subcutaneous pen (Lantus Solostar U-100 Insulin) 27 ea subcut QHS 05/05/22 [History Last Taken Unknown] multivit,stress formula-zinc tablet 1 tab PO DAILY 05/05/22 [History Last Taken Unknown] multivitamin,tx-minerals 1 tab PO DAILY 05/05/22 [History Last Taken Unknown] Allergy/AdvReac Type Severity Reaction Status Date / Time Penicillins Allergy swelling Verified 05/05/22 10:13 in throat vancomycin Allergy Itching Verified 05/05/22 10:13 metronidazole AdvReac Nausea Verified 05/05/22 10:13 oxycodone [From OxyContin] AdvReac Shortness Verified 05/05/22 10:13 of breath Family History Mother Diabetes CVA (cerebral vascular accident) Brother CAD (coronary artery disease) CABG X 3 Cancer testicular Diabetes Brother CAD (coronary artery disease) CABG X3 Diabetes Brother CAD (coronary artery disease) Stents Diabetes Sister CAD (coronary artery disease) CABG x 3 CVA (cerebral vascular accident) Diabetes Surgical History History of bilateral carpal tunnel release History of History of coronary artery stent placement (12/31/20) History of foot surgery History of rotator cuff surgery Social History household members: none number of children: 2 current occupational status: disabled Smoking Status: Never smoker alcohol intake: never substance use type: does not use caffeine: Yes Type: carbonated beverages Number of servings: 2 ROS ROS ED Review of Systems ROS Unobtainable: due to mental status and other Details: Is thatHistory limited due to altered mental status. Patient requires repeated verbal stimulus to open her eyes and mumble mumbles. Unable to understand everything that patient says. EXAM Physical Exam Const Vital Signs: 05/05/22 10:06 05/05/22 10:12 05/05/22 10:17 Temperature 95.3 F L Temperature Source Temporal Pulse Rate 58 L Respiratory Rate 18 Respiratory Effort Normal Non-Labored Respiratory Pattern Normal Blood Pressure 179/101 H Blood Pressure Mean 127 Pulse Ox 98 Oxygen Delivery Method Room Air 05/05/22 10:20 05/05/22 10:11 05/05/22 10:47 Temperature 95.3 F L 92.4 F L Temperature Source Temporal Core Pulse Rate 58 L Respiratory Rate 18 Respiratory Effort Respiratory Pattern Blood Pressure 179/101 H Blood Pressure Mean Pulse Ox 98 Oxygen Delivery Method Room Air Room Air 05/05/22 11:11 Temperature 92.5 F L Temperature Source Core Pulse Rate 52 L Respiratory Rate 11 L Respiratory Effort Respiratory Pattern Blood Pressure 152/75 H Blood Pressure Mean 100 Pulse Ox 99 Oxygen Delivery Method Room Air Positive well nourished, well developed and obese General Appearance ED: well developed, NAD and pallor; Negative for cyanotic or diaphoretic Nutritional Appearance: obese HEENT Reports dry mucous membranes HEENT Narrative: Head is atraumatic normocephalic. Ears normal. TM normal. Nares patent. There is no discharge. Mucosa is dry. Uvula is midline. There is no erythema or exudate. Mouth ED: Yes dry mucous membranes Mouth: dry mucous membranes Eyes Eyes Narrative: Gaze is conjugate. Pupils are equal round reactive to light. There is no nystagmus. There is no scleral icterus. There is no evidence of conjunctivitis. Neck no lymphadenopathy, supple and no JVD Neck Narrative: Trachea is midline. There is no inspiratory expiratory stridor. Resp normal respiratory effort Resp Narrative: Decreased breath sounds with adventitial breath sounds noted bilaterally Cardio regular rate, regular rhythm, S1 normal heart sound, S2 normal heart sound and no murmurs GI normal to inspection, nondistended, normoactive bowel sounds, non-tender and non-distended; Negative for hepatosplenomegaly Back/Spine Back/Spine Narrative: Back appears normal. Extremity Extremity Narrative: Patient has a wound plantar surface right foot mid third. There is no drainage, warmth, induration or lymphangitis. There is a open wound with granulation tissue noted plantar surface of left foot. There is no erythema, warmth, induration or drainage. There is no lymphangitis. There is no popliteal lymphadenopathy. Neuro No oriented x3 Neuro Narrative: Patient moves extremities to noxious stimuli. No response to Babinski test right or left side. Sensorium / Orientation: orientation impaired and stuporous; Negative for alert Psych Psych Narrative: Unable to determine Skin Skin Narrative: Previously described under the extremity portion of the chart General Skin Exam: pallor; Negative for jaundice MDM MDM MDM Narrative Medical decision making narrative: With altered mental status need to rule out CELL POURER versus metabolic versus infectious cause. CT of the head, UA, appropriate blood work was ordered. Chest x-ray was ordered as well to evaluate for pneumonia since she has adventitial breath sounds noted bilaterally. Patient was administered D10 through the PICC line prior to arrival. There is been no improvement in her mental status. I was informed at 1048 that patient's core temperature is 92.2. White count is normal. Patient is anemic. Patient has chronic anemia. Urine reveals yeast. There is pyuria. There is no bacteria. Culture was sent. Review of prior records indicates there is no history of hypothyroidism. Will obtain TSH level. MRI obtained on April 19 revealed osteomyelitis involving several tarsal bones and metatarsal bones left foot. Since the CAT scan reveals nothing obvious and her exam is nonfocal this may be the cause of her sepsis. Lab Data Attestation: I reviewed the patient's lab results. Lab results narrative: PT and PTT are slightly elevated. Patient is not on an anticoagulant to my knowledge. Comprehensive metabolic panel is marked for chloride of 113, BUN/creatinine of 79 and 3.27. Creatinine is higher than baseline. Lactate is normal at 0.8. Labs: Laboratory Results - last 24 hr 05/05/22 05/05/22 05/05/22 10:15 10:20 10:20 WBC 6.0 RBC 3.01 L Hgb 8.5 L Hct 27.9 L MCV 92.7 MCH 28.2 MCHC 30.5 L RDW Std Deviation 60.4 H RDW Coeff of Fior 18.2 H Plt Count 367 MPV 10.4 Immature Gran % (Auto) 0.500 Neut % (Auto) 77.7 H Lymph % (Auto) 8.5 L [place] % (Auto) 6.0 Eos % (Auto) 6.5 H Baso % (Auto) 0.8 Absolute Neuts (auto) 4.7 Absolute Lymphs (auto) 0.51 L Nucleated RBC % 0 PT 17.0 H INR 1.4 APTT 42.6 H Sodium Potassium Chloride Carbon Dioxide Anion Gap BUN Creatinine Estim Creat Clear Calc Est GFR (MDRD) Af Amer Est GFR (MDRD) Non-Af BUN/Creatinine Ratio Glucose Lactic Acid Calcium Total Bilirubin AST ALT Alkaline Phosphatase Total Protein Albumin Globulin Albumin/Globulin Ratio TSH Urine Color Yellow Urine Clarity Sl. Cloudy Urine pH 6.0 Ur Specific [place] 1.015 Urine Protein 500 H Urine Glucose (UA) Normal Urine Ketones Negative Urine Occult Blood 150 H Urine Nitrite Negative Urine Bilirubin Negative Urine Urobilinogen Normal Ur Leukocyte Esterase 100 H Urine RBC 10-25 SEEN Urine WBC 10-25 SEEN Ur Squamous Epith Cells 0-5 SEEN Urine Bacteria 0 SEEN Urine Mucus 0 SEEN Urine Yeast 1+ POC Glucose 05/05/22 05/05/22 05/05/22 10:20 10:20 10:20 WBC RBC Hgb Hct MCV MCH MCHC RDW Std Deviation RDW Coeff of Fior Plt Count MPV Immature Gran % (Auto) Neut % (Auto) Lymph % (Auto) [place] % (Auto) Eos % (Auto) Baso % (Auto) Absolute Neuts (auto) Absolute Lymphs (auto) Nucleated RBC % PT INR APTT Sodium 143 Potassium 5.0 Chloride 113 H Carbon Dioxide 28.0 Anion Gap 2 L BUN 79 H Creatinine 3.27 H Estim Creat Clear Calc 17.98 Est GFR (MDRD) Af Amer 19 L Est GFR (MDRD) Non-Af 16 L BUN/Creatinine Ratio 24.2 H Glucose 93 Lactic Acid 0.8 Calcium 8.3 L Total Bilirubin 0.30 AST 25 ALT 19 Alkaline Phosphatase 296 H Total Protein 6.6 Albumin 1.4 L Globulin 5.2 H Albumin/Globulin Ratio 0.3 L TSH 7.47 H Urine Color Urine Clarity Urine pH Ur Specific [place] Urine Protein Urine Glucose (UA) Urine Ketones Urine Occult Blood Urine Nitrite Urine Bilirubin Urine Urobilinogen Ur Leukocyte Esterase Urine RBC Urine WBC Ur Squamous Epith Cells Urine Bacteria Urine Mucus Urine Yeast POC Glucose 05/05/22 10:29 WBC RBC Hgb Hct MCV MCH MCHC RDW Std Deviation RDW Coeff of Fior Plt Count MPV Immature Gran % (Auto) Neut % (Auto) Lymph % (Auto) [place] % (Auto) Eos % (Auto) Baso % (Auto) Absolute Neuts (auto) Absolute Lymphs (auto) Nucleated RBC % PT INR APTT Sodium Potassium Chloride Carbon Dioxide Anion Gap BUN Creatinine Estim Creat Clear Calc Est GFR (MDRD) Af Amer Est GFR (MDRD) Non-Af BUN/Creatinine Ratio Glucose Lactic Acid Calcium Total Bilirubin AST ALT Alkaline Phosphatase Total Protein Albumin Globulin Albumin/Globulin Ratio TSH Urine Color Urine Clarity Urine pH Ur Specific [place] Urine Protein Urine Glucose (UA) Urine Ketones Urine Occult Blood Urine Nitrite Urine Bilirubin Urine Urobilinogen Ur Leukocyte Esterase Urine RBC Urine WBC Ur Squamous Epith Cells Urine Bacteria Urine Mucus Urine Yeast POC Glucose 82 Radiography Chest X-Ray - ED: 1 View and Read by ED Physician (Single portable view was independently reviewed and interpreted by me at 1127 as negative for any acute findings. Patient is rotated. There is slight obscuring of the left hemidiaphragm. This is probably due to the fact that she is rotated. There is no evidence of infiltrate or effusion. Pe) Diagnostic Testing: Clinical Impression(s) from Imaging Studies Brain CT 05/05/22 10:09 IMPRESSION: Chronic involutional changes of the brain. Small old lacunar infarct in the basal ganglia. Electronically Signed: Ronnie Saavedra MD at 11:10 EDT , Chest X-Ray 05/05/22 10:55 IMPRESSION: Left lower lobe infiltrate with blunting of the left costophrenic angle. A right-sided PICC line catheter is seen with the tip at the junction of the superior vena cava and right atrium. Electronically Signed: Ronnie Saavedra MD at 11:11 EDT , CT of the head was reviewed by me at 1127 as negative for acute findings. There is no evidence of fracture. There is no evidence of sinusitis. Awaiting formal read by radiologist. EKG Initial EKG: Attestation: I personally reviewed and interpreted this EKG as follows: Interpretation: Sinus Bradycardia (Ventricular rate is 58. There is decreased anterior force. MS interval is 178 ms. QS duration 86 ms. QT duration normal. [place] is normal. There is motion artifact.) Comments: I did read the radiologist interpretation. I do not believe there is an infiltrate in the left lower lobe. Critical Care Time Critical Care Time: Yes Critical care time (excluding procedures): 30-74 minutes (31 minutes), Including time spent: (History, physical, documentation, review of prior records, review of documents that accompanied patient from care home, interpretation laboratory results initiation of therapy), Discussing w/Consultants and Arranging Admission or Transfer Discharge Plan Dx/Rx/DC Orders Clinical Impression: Acute encephalopathy, Ulcer of left foot with necrosis of muscle, Essential hypertension, Charcot's joint, left ankle and foot, Chronic renal disease, stage 4, severely decreased glomerular filtration rate (GFR) between 15-29 mL/min/1.73 square meter, Hypothermia, Foot osteomyelitis, left, Hypoglycemia, Type 2 diabetes mellitus, Anemia in chronic illness Disposition Disposition: [facility]
[2022-05-05 10:24] LABS: Bacteria 0 SEEN /hpf (None Seen); Mucous, Urine 0 SEEN /hpf (<or=2+)
[2022-05-05 10:31] LABS: Color, Urine Yellow (Yellow); Glucose, Dipstick Normal (Normal); Ketone-Dipstick Negative (Negative); Leukocyte Esterase-Dipstick 100 /ul (Negative); Nitrite-Dipstick Negative (Negative); Occult Blood-Urine 150 /ul (Negative); Protein-Dipstick 500 mg/dl (Negative); Specific Gravity, Urine 1.015 (1.002-1.030); Urine Bilirubin Dipstick Negative (Negative); Urine Clarity Sl. Cloudy (Clear); Urine Urobilinogen Normal (Normal)
[2022-05-05 10:34] LABS: Absolute Lymphocyte Count 0.51 X10^3/uL (0.83-4.51); Absolute Neutrophil Count 4.7 X10^3/uL (2.0-7.7); Basophil# 0.05 X10^3/uL; Basophil% 0.8 % (0-1); Eosinophil# 0.39 X10^3/uL; Eosinophils% 6.5 % (0-5); Hematocrit 27.9 % (37-47); Hemoglobin 8.5 g/dL (12.0-15.0); Lymphocyte # 0.51 X10^3/ul (0.83-4.51); Lymphocyte % 8.5 % (19-41); Mean Corp Hgb Conc 30.5 g/dL (32-36); Mean Corpuscular Hgb 28.2 pg (27.0-32.0); Mean Corpuscular Volume 92.7 fL (81-99); Mean Platelet Vol. 10.4 fl (6.2-12.0); Monocyte# 0.36 X10^3/uL; NRBC Flagged by Analyzer 0 % (0-5); Neutrophil # 4.65 X10^3/uL (2.7-7.7); Neutrophil % 77.7 % (47-70); POSITIVE DIFFERENTIAL YES; Platelet Count 367 K/mm3 (150-450); RBC Distribution Width CV 18.2 % (11.6-14.6); RBC Distribution Width SD 60.4 fl (35.1-43.9); Red Blood Count 3.01 M/mm3 (4.2-5.4)
[2022-05-05 10:37] LABS: Differential Indicated SCAN CRITERIA MET
[2022-05-05 10:38] LABS: Red Blood Cells-Urine 10-25 SEEN /hpf (0-5); Squamous Epithelial Cells - UA 0-5 SEEN /hpf (5-10); White Blood Cells 10-25 SEEN /hpf (0-5); Yeast-Urine 1+ /hpf (None Seen)
[2022-05-05 10:48] LABS: International Normalized Ratio 1.4
[2022-05-05 10:49] LABS: Partial Thromboplast Time 42.6 Seconds (24.1-36.2)
[2022-05-05 10:51] LABS: Bedside Glucose 82 mg/dL (74-106)
[2022-05-05 10:54] LABS: ALB/GLOB Ratio 0.3 RATIO (0.9-2.4); AST(SGOT) 25 U/L (15-37); Alanine Aminotransfer ALT/SGPT 19 U/L (13-56); Albumin, Serum 1.4 g/dL (3.2-5.0); Alkaline Phosphatase 296 U/L (45-117); Anion Gap 2 (5-15); BUN 79 mg/dL (7-18); BUN/Creat Ratio 24.2 RATIO (10-20); Calcium,Total 8.3 mg/dL (8.5-10.1); Chloride 113 mmol/L (98-107); Creatinine, Serum 3.27 mg/dL (0.55-1.02); EST Glomerular Filtration Rate 16 mL/min (>60); Est Glom Filt Rate - Afr Amer 19 mL/min (>60); Estimated Creatinine Clearance 17.98 ml/min; Globulin 5.2 g/dL (2.2-4.2); Glucose 93 mg/dL (74-106); Protein, Total 6.6 g/dL (6.4-8.2); Sodium Level 143 mmol/L (136-145)
--- NOTE | 2022-05-05 10:55 | RAD_ITS ---
STUDY: X-RAY CHEST REASON FOR EXAM: Female, 56 years old. Adventitial breath sounds TECHNIQUE: Single AP portable view of the chest. COMPARISON: Comparison is made with prior study dated 04/09/2022. FINDINGS: A right-sided PICC line catheter is seen with the tip at the junction of superior vena cava and right atrium. EKG electrodes are seen. Left lower lobe infiltrate with blunting of the left costophrenic angle. There is mild cardiac enlargement. Normal mediastinum and elvie. Normal visualized pulmonary arteries. Normal visualized aortic arch and descending thoracic aorta. There are degenerative changes of the visualized thoracic spine. Normal visualized ribs, clavicles, and shoulders. There is no demonstrated abnormality of the visualized soft tissue structures of the upper abdomen. RAD/Chest 1 View (Portable) IMPRESSION: Left lower lobe infiltrate with blunting of the left costophrenic angle. A right-sided PICC line catheter is seen with the tip at the junction of the superior vena cava and right atrium. Electronically Signed: Ronnie Saavedra MD at 11:11 EDT ,
--- NOTE | 2022-05-05 10:58 | ED.RN ---
discussed pt temp with provider, at this time not order for bear hugger or warm fluids.
[2022-05-05 11:02] LABS: Lactic Acid 0.8 mmol/L (0.4-1.9)
[2022-05-05 11:22] LABS: Thyroid Stim Hormone (TSH) 7.47 uIU/mL (0.358-3.74)
--- NOTE | 2022-05-05 11:28 | HP.PCM.HOS_ITS ---
HPI - General General Date of Admission: 05/05/22 Date of Service: 05/05/22 Chief Complaint: altered mental status HPI Narrative DIONY ROCHA, is a 56 with a PMh as outlined who was admitted via the ED on 05/05/2022 due to altered mental status. She was admitted from her SNF due to confusion. The staff int SNF thought it was due to her hypoglycemia as her blood sugar was 33. Patient was very confused and couldnt give much of a history . She had recently been admitted for sepsis and osteomyelitis of her foot and was due to start antibiotics today. Vitals in the ED of 152/75, MI of 52, RR of 11 and temp of 92.5F, and she was saturating at 99% on room air. CBC showed wbc of 6, Hb of 8.5 and platelets of 367. INR was 1.4 and chemistry showed sodium of 143, potassium of 5 and CR of 3.27. lactic acid was 0.8 and urinalysis showed 10-25 wbc and [address] of the brain showed a small old lacunar infarct in the basal ganglia and chronic involutional changes of the brain. CXR shwoed a left lower lobe infiltrate with blunting of hte left costophrenic angle and a right sided PICC line catheter. She is being admitted to be managed for acute metabolic encephalopathy. [facility] Medical History Acquired varus deformity of left foot Acquired varus deformity of right foot Amputation foot, bilat Anemia due to chronic illness Anxiety and depression Atherosclerosis of [place] coronary artery of [place] heart without angina pectoris Back pain, chronic Bilateral edema of lower extremity Charcot's joint of right foot Chronic renal insufficiency Chronic ulcer of left foot with fat layer exposed Chronic ulcer of right foot with necrosis of muscle COVID-19 (08/28/21) Delayed wound healing Diabetes Diabetic foot ulcer associated with type 2 diabetes mellitus Diabetic infection of left foot Diabetic polyneuropathy Diabetic ulcer of right ankle Elevated troponin Essential (primary) hypertension GERD (gastroesophageal reflux disease) Hemoglobin A1c greater than 9.0% HLD (hyperlipidemia) Hyperparathyroidism, secondary renal Hypertension Iron deficiency anemia Ischemic cardiomyopathy Myocardial infarct Non-compliance Non-smoker Normocytic anemia NSTEMI (non-ST elevated myocardial infarction) (09/20/18) Obesity (BMI 30.0-34.9) Osteomyelitis of left foot RLS (restless legs syndrome) Stage 4 chronic kidney disease TIA (transient ischemic attack) 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 Ulcer of left foot with fat layer exposed Ulcer of left foot with muscle involvement without evidence of necrosis Ulcer of right lower extremity with fat layer exposed Home Medications atorvastatin 80 mg tablet 80 mg PO QHS cholesterol #90 tabs 11/30/19 [Rx Last Taken 04/07/22] isosorbide mononitrate 30 mg tablet,extended release 24 hr 30 mg PO DAILY BP 03/03/21 [History Last Taken 04/07/22] paroxetine HCl 20 mg tablet 20 mg PO DAILY DEPRESSION 07/07/21 [History Last Taken 04/07/22] cyclobenzaprine 5 mg tablet 5 mg PO QHS pain #0 tabs 12/23/21 [Rx Last Taken 04/07/22] gabapentin 300 mg capsule 300 mg BID nerve pain 12/23/21 [History Last Taken 04/07/22] bupropion HCl 150 mg 24 hr tablet, extended release 150 mg PO DAILY mood 02/04/22 [History Last Taken 04/07/22] carvedilol 12.5 mg tablet 12.5 mg PO BID heart 02/04/22 [History Last Taken 04/07/22] hydroxyzine HCl 25 mg tablet 25 mg PO TID PRN Anxiety 02/04/22 [History Last Taken 04/07/22] guaifenesin 600 mg tablet, extended release 12 hr 600 mg PO BID congestion 04/09/22 [History Last Taken 04/07/22] melatonin 5 mg tablet 5 mg PO QHS sleep 04/09/22 [History Last Taken 04/07/22] pramipexole 1.5 mg tablet 1.5 mg PO BID rls 04/09/22 [History Last Taken 04/07/22] daptomycin 500 mg intravenous solution 700 mg IV Q48H #27 ea 04/22/22 [Rx Last Taken Unknown] albuterol sulfate 2.5 mg/3 mL (0.083 %) solution for nebulization 2.5 mg (3 mL) inhalation Q2H PRN PRN Dyspnea, wheezing #0 mL 04/24/22 [Rx Last Taken Unknown] clopidogrel 75 mg tablet 75 mg PO DAILY #0 tabs 04/24/22 [Rx Last Taken Unknown] insulin lispro 100 unit/mL subcutaneous pen (Humalog KwikPen (U-100) Insulin) See Protocol subcut ACHS #0 mL 04/24/22 [Rx Last Taken Unknown] menthol 0.44 %-zinc oxide 20.6 % topical ointment (Calmoseptine) 1 applic topical TID #0 grams 04/24/22 [Rx Last Taken Unknown] nystatin 100,000 unit/gram topical powder (Nyamyc) 1 applic topical BID #0 grams 04/24/22 [Rx Last Taken Unknown] oxycodone 5 mg tablet 5 mg PO Q6H PRN PRN Pain Score 6-10 2 days #8 tabs 04/24/22 [Rx Last Taken Unknown] sennosides 8.6 mg-docusate sodium 50 mg tablet (Stool Softener-Stimulant Laxative) 2 tab PO BID PRN PRN Constipation #0 tabs 04/24/22 [Rx Last Taken Unknown] sodium bicarbonate 650 mg tablet 1,300 mg PO TID #0 tabs 04/24/22 [Rx Last Taken Unknown] ertapenem 1 gram solution for injection (Invanz) 0.5 g IV QHS 04/27/22 [History Last Taken Unknown] ferrous sulfate 325 mg (65 mg iron) tablet 325 mg PO DAILY 30 days #30 tabs 04/28/22 [Rx Last Taken Unknown] pantoprazole 40 mg tablet,delayed release 40 mg PO BIDCM #0 tabs 04/28/22 [Rx Last Taken Unknown] Lactobacillus rhamnosus GG 1 unit PO/SL BID 05/05/22 [History Last Taken Unknown] acetaminophen 325 mg tablet (Tylenol) 650 mg PO Q4H PRN PRN pain or temperature 05/05/22 [History Last Taken Unknown] ascorbic acid (vitamin C) 500 mg tablet (Vitamin C) 500 mg PO BID 05/05/22 [History Last Taken Unknown] insulin glargine 100 unit/mL (3 mL) subcutaneous pen 15 unit subcut BREAKFAST 05/05/22 [History Last Taken Unknown] insulin glargine 100 unit/mL (3 mL) subcutaneous pen (Lantus Solostar U-100 Insulin) 27 ea subcut QHS 05/05/22 [History Last Taken Unknown] multivit,stress formula-zinc tablet 1 tab PO DAILY 05/05/22 [History Last Taken Unknown] multivitamin,tx-minerals 1 tab PO DAILY 05/05/22 [History Last Taken Unknown] Allergy/AdvReac Type Severity Reaction Status Date / Time Penicillins Allergy swelling Verified 05/05/22 10:13 in throat vancomycin Allergy Itching Verified 05/05/22 10:13 metronidazole AdvReac Nausea Verified 05/05/22 10:13 oxycodone [From OxyContin] AdvReac Shortness Verified 05/05/22 10:13 of breath Family History Mother Diabetes CVA (cerebral vascular accident) Brother CAD (coronary artery disease) CABG X 3 Cancer testicular Diabetes Brother CAD (coronary artery disease) CABG X3 Diabetes Brother CAD (coronary artery disease) Stents Diabetes Sister CAD (coronary artery disease) CABG x 3 CVA (cerebral vascular accident) Diabetes Surgical History History of bilateral carpal tunnel release History of History of coronary artery stent placement (12/31/20) History of foot surgery History of rotator cuff surgery Social History household members: none number of children: 2 current occupational status: disabled Smoking Status: Never smoker alcohol intake: never substance use type: does not use caffeine: Yes Type: carbonated beverages Number of servings: 2 ROS Review of Systems ROS Unobtainable: due to encephalopathy Vital Signs Vital Signs Vital Signs: 05/05/22 10:06 05/05/22 10:12 05/05/22 10:17 Temperature 95.3 F L Temperature Source Temporal Pulse Rate 58 L Respiratory Rate 18 Respiratory Effort Normal Non-Labored Respiratory Pattern Normal Blood Pressure 179/101 H Blood Pressure Mean 127 Pulse Ox 98 Oxygen Delivery Method Room Air 05/05/22 10:20 05/05/22 10:11 05/05/22 10:47 Temperature 95.3 F L 92.4 F L Temperature Source Temporal Core Pulse Rate 58 L Respiratory Rate 18 Respiratory Effort Respiratory Pattern Blood Pressure 179/101 H Blood Pressure Mean Pulse Ox 98 Oxygen Delivery Method Room Air Room Air 05/05/22 11:11 Temperature 92.5 F L Temperature Source Core Pulse Rate 52 L Respiratory Rate 11 L Respiratory Effort Respiratory Pattern Blood Pressure 152/75 H Blood Pressure Mean 100 Pulse Ox 99 Oxygen Delivery Method Room Air Weight Weight: 228 lb 6.382 oz Body Mass Index (BMI) 36.8 Physical Exam Const Orientation / Consciousness: confused, disoriented and lethargic HEENT normocephalic, head/scalp atraumatic and hearing grossly normal bilaterally HEENT Narrative: dry oral mucosal membranes Eyes PERRL, EOMs intact bilaterally and conjunctivae normal Neck no lymphadenopathy and supple Resp Resp Narrative: mildly diminished breath sounds bibasally, no wheezes or crackles. On room air Cardio regular rate, regular rhythm, S1 normal heart sound, S2 normal heart sound and no murmurs GI normal to inspection, nondistended, normoactive bowel sounds, soft to palpation, non-tender and non-distended Extremity normal to inspection, full ROM and no clubbing, cyanosis or edema Neuro Neuro Narrative: very confused, lethargic Sensorium / Orientation: awake and alert Psych Psych Narrative: confused Results Lab / Micro Data Result Diagrams: 05/05/22 10:20 05/05/22 10:20 Labs: Laboratory Results - last 24 hr 05/05/22 10:15: Urine Color Yellow, Urine Clarity Sl. Cloudy, Urine pH 6.0, Ur Specific [place] 1.015, Urine Protein 500 H, Urine Glucose (UA) Normal, Urine Ketones Negative, Urine Occult Blood 150 H, Urine Nitrite Negative, Urine Bilirubin Negative, Urine Urobilinogen Normal, Ur Leukocyte Esterase 100 H, Urine RBC 10-25 SEEN, Urine WBC 10-25 SEEN, Ur Squamous Epith Cells 0-5 SEEN, Urine Bacteria 0 SEEN, Urine Mucus 0 SEEN, Urine Yeast 1+ 05/05/22 10:20: WBC 6.0, RBC 3.01 L, Hgb 8.5 L, Hct 27.9 L, MCV 92.7, MCH 28.2, MCHC 30.5 L, RDW Std Deviation 60.4 H, RDW Coeff of Fior 18.2 H, Plt Count 367, MPV 10.4, Immature Gran % (Auto) 0.500, Neut % (Auto) 77.7 H, Lymph % (Auto) 8.5 L, [place] % (Auto) 6.0, Eos % (Auto) 6.5 H, Baso % (Auto) 0.8, Absolute Neuts (auto) 4.7, Absolute Lymphs (auto) 0.51 L, Nucleated RBC % 0 05/05/22 10:20: PT 17.0 H, INR 1.4, APTT 42.6 H 05/05/22 10:20: Sodium 143, Potassium 5.0, Chloride 113 H, Carbon Dioxide 28.0, Anion Gap 2 L, BUN 79 H, Creatinine 3.27 H, Estim Creat Clear Calc 17.98, Est GFR (MDRD) Af Amer 19 L, Est GFR (MDRD) Non-Af 16 L, BUN/Creatinine Ratio 24.2 H , Glucose 93, Calcium 8.3 L, Total Bilirubin 0.30, AST 25, ALT 19, Alkaline Phosphatase 296 H, Total Protein 6.6, Albumin 1.4 L, Globulin 5.2 H, Albumin/Globulin Ratio 0.3 L 05/05/22 10:20: Lactic Acid 0.8 05/05/22 10:20: TSH 7.47 H 05/05/22 10:29: POC Glucose [address] 05/05/22 10:09 IMPRESSION: Chronic involutional changes of the brain. Small old lacunar infarct in the basal ganglia. Electronically Signed: Ronnie Saavedra MD at 11:10 EDT , Chest X-Ray 05/05/22 10:55 IMPRESSION: Left lower lobe infiltrate with blunting of the left costophrenic angle. A right-sided PICC line catheter is seen with the tip at the junction of the superior vena cava and right atrium. Electronically Signed: Ronnie Saavedra MD at 11:11 EDT , Assessment & Plan Assessment/Plan (1) Acute encephalopathy: (2) Hypothermia: PLAN: Plan #Acute metabolic encephalopathy * may be related to hypoglycemia as she was hypoglycemic in her SNF * admit to PCU with telemetry * she was mildly hypothermic on admission as well * CT of the brain showed no acute intracranial pathology * ammonia level pending- ammonia came back at 43, so hyperammonemia is also a contributory factor. Will start on lactulose, titrate until 2-3 loose stools d aily. * hold diabetic meds o/a of hypoglycemia * hydrate gently with IVF * ISS. * consult PT/OT. fall precautions * #Hypothermia: resolved. temp now 97.1F. Give warm blankets and noemi hugger as needed if it recurs #osteomyelitis of hte left foot * on IV ertapenem and IV daptomycin with stop date of 06/24/2022 * consutl wound care * #Hypertension: on carvedilol #Anemia * chronic. hb today is 8.5, which appears to be around her baseline * on oral iron supplements, so is an iron deficiency anemia #Diabetes mellitus with peripheral neuropathy * on ISS. hold lantus. accuchecks ACHS * hold gabapentin o/a of metabolic encephalopathy * #CAD s/p stents: on plavix, as well as carvedilol and imdur #CKD stage IV: due to diabetes and hypertension. Stable. on sodium bicarbonate DVT prophylaxis: lovenox, renally dosed Code status: unable to discuss code status due to her encephalopathy. Will therefore order full code unverified. Charges/Coding Visit Charges Inpatient E&M: 62396 Init Hosp L3
--- NOTE | 2022-05-05 11:30 | NURSING ---
DR BILL JERNIGAN
--- NOTE | 2022-05-05 11:43 | NURSING ---
PCU KORAM ENCEPHALOPATHY, OSTEOMYELITIS, HYPOTHERMIA
--- NOTE | 2022-05-05 11:49 | ED.RN ---
HAVE NOT RECEIVED ATB' FROM PHARMACY.
--- NOTE | 2022-05-05 11:52 | ED.RN ---
called [facility] in pharmacy in inquire about antibiotics prior to going to PCU
[2022-05-05] MEDS: Dextrose 50%-Water 25 GM/50 ML DISP.SYRIN IV ×3 (12:37→19:43)
[2022-05-05 12:46] LABS: Bedside Glucose 50 mg/dL (74-106)
--- NOTE | 2022-05-05 12:56 | CM.ED ---
LUCRETIA Note LUCRETIA received voice mail from Trisha Hernandez patient's daughter. LUCRETIA called Trisha back. Trisha said that her mother is at [facility] and she is not happy with the care there as her mom was on the bed [facility] for 1 hour and the staff have been rude. Trisha said that she would like for her to be moved to [facility]. Trisha is interested in [facility] for patient. LUCRETIA explained that the hospital can't change placement while patient is in the hospital but LUCRETIA recommended the followin) Contact Directions [facility] and provided Trisha with the contact number 2) Speak to the staff at [facility] regarding if they have bed availability 3) Tell the outreach and education social worker at [facility] that they want patient moved and 4) Contact [facility] for support and directions regarding SNF. Trisha verbalized understanding, LUCRETIA was advised by RN that patient is being admitted. LUCRETIA called Trisha and advised her about patient being admitted to [facility] ([facility] Trisha said that she called and spoke to [facility] staff and the staff is going to request patient's medical records from [facility]. Trisha said that she called [facility] and told the outreach and education social worker she wants patient to be moved. Trisha said that she is interested in SNF placement in [place] and their medicaid ratings. LUCRETIA asked if Trisha if she coming to the hospital and Trisha is working however, LUCRETIA said that the reviews are on medicare.gov. Trisha verbalized understanding. LUCRETIA updated PCU LUCRETIA Kohli . Sabine CANO
[2022-05-05 13:05] LABS: Bedside Glucose 123 mg/dL (74-106)
[2022-05-05] MEDS: 0.9% Normal Saline 1,000 ML 125 ML IV ×2 (14:40→22:24)
[2022-05-05] MEDS: Lactulose 20 GM/30 ML UDC PO ×2 (14:56→20:57)
[2022-05-05] MEDS: oxyCODONE 5 MG Tablet PO ×2 (14:56→22:24)
[2022-05-05] MEDS: Sodium Bicarbonate 650 MG Tablet 1300 MG PO ×2 (14:56→20:57)
[2022-05-05 14:58] LABS: Bilirubin, Direct 0.16 mg/dL (0.00-0.30)
[2022-05-05] MEDS: 0.9% Saline Lock 10 ML Syringe IV (16:53)
[2022-05-05 17:16] LABS: Bedside Glucose 32 mg/dL (74-106)
[2022-05-05 17:51] LABS: Bedside Glucose 88 mg/dL (74-106)
[2022-05-05 20:06] LABS: Bedside Glucose 47 mg/dL (74-106)
[2022-05-05 20:56] LABS: Bedside Glucose 111 mg/dL (74-106)
[2022-05-05] MEDS: cycloBENZAPRine HCl 5 MG TABLET PO (20:56)
[2022-05-05] MEDS: Pramipexole Di-HCl 0.5 MG Tablet 1.5 MG PO (20:56)
[2022-05-05] MEDS: MELATONIN 10 MG TABLET 5 MG PO (20:57)
[2022-05-05] MEDS: Atorvastatin Calcium 80 MG Tablet PO (20:57)
[2022-05-05] MEDS: Carvedilol 12.5 MG Tablet PO (20:57)
[2022-05-05] MEDS: guaiFENesin 600 MG Tablet PO (20:58)
[2022-05-05] MEDS: Nystatin Powder 15gm Bottle 1 APPLIC TOPICAL (20:58)
[2022-05-05] MEDS: Acetaminophen 325 MG Tablet 650 MG PO (22:24)
[2022-05-06] VITALS (8 sets, daily range): BP systolic 139–165; BP diastolic 71–95; PULSE 71–89; RESP 16–18; TEMP 36.4–37; O2SAT 93–97
[2022-05-06 01:21] LABS: Bedside Glucose 76 mg/dL (74-106)
--- NOTE | 2022-05-06 02:56 | PCM.HOSP.N ---
Hospitalist Note Given mental status improvement earlier patient had been allowed to resume a diet however she continues to have persistent hypoglycemia. We will transition her fluids to dextrose based.
[2022-05-06 03:11] LABS: Bedside Glucose 54 mg/dL (74-106)
[2022-05-06] MEDS: Dext 5%-0.45% NS 1,000 ML 100 ML IV ×2 (03:27→13:37)
[2022-05-06 04:15] LABS: Absolute Lymphocyte Count 0.64 X10^3/uL (0.83-4.51); Absolute Neutrophil Count 3.9 X10^3/uL (2.0-7.7); Basophil# 0.05 X10^3/uL; Basophil% 0.9 % (0-1); Eosinophil# 0.44 X10^3/uL; Eosinophils% 7.9 % (0-5); Hematocrit 26.1 % (37-47); Hemoglobin 7.9 g/dL (12.0-15.0); Lymphocyte # 0.64 X10^3/ul (0.83-4.51); Lymphocyte % 11.4 % (19-41); Mean Corp Hgb Conc 30.3 g/dL (32-36); Mean Corpuscular Hgb 27.7 pg (27.0-32.0); Mean Corpuscular Volume 91.6 fL (81-99); Mean Platelet Vol. 10.2 fl (6.2-12.0); Monocyte# 0.49 X10^3/uL; Monocyte% 8.8 % (0-10); NRBC Flagged by Analyzer 0 % (0-5); Neutrophil # 3.94 X10^3/uL (2.7-7.7); Neutrophil % 70.5 % (47-70); Platelet Count 387 K/mm3 (150-450); RBC Distribution Width CV 18.1 % (11.6-14.6); Red Blood Count 2.85 M/mm3 (4.2-5.4); White Blood Count 5.6 K/mm3 (4.4-11.0)
[2022-05-06 04:41] LABS: Anion Gap 4 (5-15); BUN 72 mg/dL (7-18); BUN/Creat Ratio 23.4 RATIO (10-20); Calcium,Total 7.9 mg/dL (8.5-10.1); Chloride 114 mmol/L (98-107); Creatinine, Serum 3.08 mg/dL (0.55-1.02); EST Glomerular Filtration Rate 17 mL/min (>60); Est Glom Filt Rate - Afr Amer 20 mL/min (>60); Estimated Creatinine Clearance 19.09 ml/min; Glucose 61 mg/dL (74-106); Potassium 4.8 mmol/L (3.5-5.1); Sodium Level 144 mmol/L (136-145)
[2022-05-06] MEDS: Lactulose 20 GM/30 ML UDC PO ×2 (05:09→13:38)
[2022-05-06] MEDS: Sodium Bicarbonate 650 MG Tablet 1300 MG PO ×3 (05:09→21:49)
[2022-05-06] MEDS: 0.9% Saline Lock 10 ML Syringe IV (05:09)
[2022-05-06 05:30] LABS: Bedside Glucose 75 mg/dL (74-106)
[2022-05-06 06:50] LABS: Bedside Glucose 74 mg/dL (74-106)
[2022-05-06] MEDS: Ascorbic Acid 500 MG Tablet PO ×2 (08:58→16:47)
[2022-05-06] MEDS: oxyCODONE 5 MG Tablet PO ×2 (08:58→15:19)
[2022-05-06] MEDS: Nystatin Powder 15gm Bottle 1 APPLIC TOPICAL ×2 (08:59→21:49)
[2022-05-06] MEDS: Pantoprazole Sodium 40 MG Tablet PO ×2 (08:59→16:47)
[2022-05-06] MEDS: Paroxetine 20 MG Tablet PO (08:59)
[2022-05-06] MEDS: Isosorbide Mononitrate 30 MG Tablet PO (08:59)
[2022-05-06] MEDS: Enoxaparin 30 MG/0.3 ML Syringe SC (08:59)
[2022-05-06] MEDS: guaiFENesin 600 MG Tablet PO ×2 (08:59→21:57)
[2022-05-06] MEDS: Pramipexole Di-HCl 0.5 MG Tablet 1.5 MG PO ×2 (08:59→21:48)
[2022-05-06] MEDS: Multivitamins,Ther W-Minerals Tablet 1 TABLET PO (09:00)
[2022-05-06] MEDS: Clopidogrel Bisulfate 75 MG Tablet PO (09:01)
[2022-05-06] MEDS: buPROPion (XL) 150 MG TABLET.XL PO (09:01)
[2022-05-06] MEDS: Ferrous Sulfate 325 MG Tablet PO (09:01)
[2022-05-06] MEDS: Carvedilol 12.5 MG Tablet PO ×2 (09:01→21:47)
--- NOTE | 2022-05-06 10:08 | CASEMGMT ---
SW was informed patient's daughter would like [facility] not [facility] as patient and her daughter are unhappy with patient's care at [facility]. SW will verify this with patient as well and proceed with referral. Kamilla Tinsley SECRETARY BOOKKEEPERWanda MCCORD
--- NOTE | 2022-05-06 10:12 | CASEMGMT ---
SW did confirm with patient that she is okay with [facility]. LUCRETIA will work on referral. Kamilla Tinsley EFFICIENCY ENGINEER FLEX
--- NOTE | 2022-05-06 10:39 | WOUNDNOTE ---
wound photo: left plantar foot
--- NOTE | 2022-05-06 10:40 | WOUNDNOTE ---
wound photo: right lateral foot
--- NOTE | 2022-05-06 10:41 | WOUNDNOTE ---
wound photo: right plantar foot
--- NOTE | 2022-05-06 10:49 | PN.HOSP_ITS ---
Subjective Subjective Patient seen and examined. She is much more alert and oriented, and encephalopathy has resolved. She complains of mild generalised abdominal pain which is chronic. Review of systems is otherwise negative. She has remained hemodynamically stable. Objective Data Objective Data Vital Signs: Vital Signs Temp Pulse Resp BP Pulse Ox O2 Del Method 98.4 F 80 16 160/82 H 95 Room Air 05/06/22 08:55 05/06/22 08:55 05/06/22 08:55 05/06/22 08:55 05/06/22 08:55 05/06/22 08:55 Oxygen Delivery Method Room Air Weight: 218 lb 7.649 oz Body Mass Index (BMI) 35.1 Intake & Output: Intake and Output for Last 24 Hours 05/04/22 05/05/22 05/06/22 23:59 23:59 23:59 Intake Total 1290.67 / 1290.67 661.67 / 661.67 Output Total 1225 / 1225 180 / 180 Balance 65.67 / 65.67 481.67 / 481.67 Lab / Micro Data Result Diagrams: 05/06/22 03:59 05/06/22 03:59 Labs: Laboratory Results - last 24 hr 05/05/22 10:20: PT 17.0 H, INR 1.4, APTT 42.6 H 05/05/22 10:20: Sodium 143, Potassium 5.0, Chloride 113 H, Carbon Dioxide 28.0, Anion Gap 2 L, BUN 79 H, Creatinine 3.27 H, Estim Creat Clear Calc 17.98, Est GFR (MDRD) Af Amer 19 L, Est GFR (MDRD) Non-Af 16 L, BUN/Creatinine Ratio 24.2 H , Glucose 93, Calcium 8.3 L, Total Bilirubin 0.30, AST 25, ALT 19, Alkaline Phosphatase 296 H, Total Protein 6.6, Albumin 1.4 L, Globulin 5.2 H, Albumin/Globulin Ratio 0.3 L 05/05/22 10:20: Lactic Acid 0.8 05/05/22 10:20: TSH 7.47 H 05/05/22 10:20: Direct Bilirubin 0.16 05/05/22 10:29: POC Glucose 82 05/05/22 12:27: POC Glucose 50 L 05/05/22 12:48: POC Glucose 123 H 05/05/22 13:43: Ammonia 43.0 H 05/05/22 16:51: POC Glucose 32 L* 05/05/22 17:31: POC Glucose 88 05/05/22 19:41: POC Glucose 47 L 05/05/22 20:38: POC Glucose 111 H 05/06/22 01:04: POC Glucose 76 05/06/22 02:51: POC Glucose 54 L 05/06/22 03:59: WBC 5.6, RBC 2.85 L, Hgb 7.9 L, Hct 26.1 L, MCV 91.6, MCH 27.7, MCHC 30.3 L, RDW Std Deviation 60.0 H, RDW Coeff of Fior 18.1 H, Plt Count 387, MPV 10.2, Immature Gran % (Auto) 0.500, Neut % (Auto) 70.5 H, Lymph % (Auto) 11. 4 L, [place] % (Auto) 8.8, Eos % (Auto) 7.9 H, Baso % (Auto) 0.9, Absolute Neuts (auto) 3.9, Absolute Lymphs (auto) 0.64 L, Nucleated RBC % 0 05/06/22 03:59: Sodium 144, Potassium 4.8, Chloride 114 H, Carbon Dioxide 26.0, Anion Gap 4 L, BUN 72 H, Creatinine 3.08 H, Estim Creat Clear Calc 19.09, Est GFR (MDRD) Af Amer 20 L, Est GFR (MDRD) Non-Af 17 L, BUN/Creatinine Ratio 23.4 H , Glucose 61 L, Calcium 7.9 L 05/06/22 05:08: POC Glucose 75 05/06/22 06:30: POC Glucose 74 Radiography Diagnostic Testing: Radiology Impression Brain CT 05/05/22 10:09 IMPRESSION: Chronic involutional changes of the brain. Small old lacunar infarct in the basal ganglia. Electronically Signed: Ronnie Saavedra MD at 11:10 EDT , Chest X-Ray 05/05/22 10:55 IMPRESSION: Left lower lobe infiltrate with blunting of the left costophrenic angle. A right-sided PICC line catheter is seen with the tip at the junction of the superior vena cava and right atrium. Electronically Signed: Ronnie Saavedra MD at 11:11 EDT , Physical Exam Const Orientation / Consciousness: confused, disoriented and lethargic HEENT normocephalic, head/scalp atraumatic and hearing grossly normal bilaterally Mouth: oral and palatal mucosa normal Eyes PERRL, EOMs intact bilaterally and conjunctivae normal Neck no lymphadenopathy and supple Resp Resp Narrative: mildly diminished breath sounds bibasally, no wheezes or crackles. On room air Cardio regular rate, regular rhythm, S1 normal heart sound, S2 normal heart sound and no murmurs GI normal to inspection, nondistended, normoactive bowel sounds, soft to palpation and non-distended GI Narrative: minimal generalised tenderness, no guarding or rebound tenderness Extremity normal to inspection, full ROM and no clubbing, cyanosis or edema Neuro oriented x3, CN's II-XII intact bilaterally and moves all extremities Neuro Narrative: encephalopathy has resolved Sensorium / Orientation: awake and alert Psych Psych Narrative: flat affect Assessment & Plan Assessment/Plan (1) Acute encephalopathy: (2) Hypothermia: PLAN: Plan #Acute metabolic encephalopathy * resolved. Now alert and oriented x 3 * CT of the brain was negative * ammonia was elevated at 43, which could be contributing to encephalopathy * on lactulose; aim is for 2-3 loose stools daily * consult PT/OT. Fall precautions * * * #Hypothermia: resolved. #osteomyelitis of the left foot * on IV ertapenem and IV daptomycin with stop date of 06/24/2022 * cwound care consulted * #Hypertension: on carvedilol #Chronic iron deficiency Anemia * chronic. hb today is 7.9. * on oral iron supplements, so is an iron deficiency anemia * #Diabetes mellitus with peripheral neuropathy * resume lantus. ISS. Accuchecks ACHS * resume gabapentin also * #CAD s/p stents: on plavix, as well as carvedilol and imdur #CKD stage IV: due to diabetes and hypertension. Stable. on sodium bicarbonate DVT prophylaxis: lovenox, renally dosed Code status: full code Charges/Coding Visit Charges Inpatient E&M: 97460 Subs Hosp L2
--- NOTE | 2022-05-06 11:12 | CASEMGMT ---
Discharge Market Basket Maker Yaneli lucas assistant produce manager sent a referral over to [facility]. Will follow up. Plan: [facility], Waiting acceptance. Yaneli Hammond Discharge Market Basket Maker
[2022-05-06 12:10] LABS: Bedside Glucose 97 mg/dL (74-106)
--- NOTE | 2022-05-06 13:38 | CASEMGMT ---
Addendum entered by Yaneli Hammond 05/06/22 14:09: [facility] reached out. Facility is going to have to decline at this moment. LUCRETIA Mendez. Yaneli Hammond Discharge Upholsterer Assembly Line Original Note: Discharge Upholsterer Assembly Line Yaneli reached out to [facility]. Care team in reviewing referral. Will follow up. Plan: [facility], Pending Acceptance. Yaneli Hammond Discharge Upholsterer Assembly Line
--- NOTE | 2022-05-06 14:54 | CASEMGMT ---
Discharge Business Services Clerk Yaneli d/c nurse assistant talked with the daughter Trisha about more [place] [facility] [place] options. Yaneli said options are getting slim and the daughter said at this point send the referrals to any facility and Trisha will pick based on who accepts her. Yaneli sent a referral to [facility] and [facility] in [place]. Yaneli will follow up. Plan: [facility], Waiting Acceptance. Yaneli Hammond Discharge Business Services Clerk
[2022-05-06] MEDS: Acetaminophen 325 MG Tablet 650 MG PO (15:19)
--- NOTE | 2022-05-06 15:31 | CASEMGMT ---
RN CM Chart review: patient was admitted from 04/09-04/24/22 for sepsis, DM bilateral foot wounds, and FELI. See RN CM assessment from 04/10/22. Patient was discharged to [facility] for wound care and IV ATBs. Patient returned 04/27-04/28 in observation for ABLA and returned back to [facility]. Patient returned 05/05/22 from [facility] for AMS and hypoglycemia. Patient's ammonia level was elevated and lactulose started. Family requesting new SNF, [facility]. Patient to discharge to SNF pending acceptance and precert.
--- NOTE | 2022-05-06 15:34 | CASEMGMT ---
Discharge Tipple Repairer [facility] called back. Facility can accept patient only if she does not have any follow up appointment as facility has no transportation and daughter can not transport due to weightbearing status. LUCRETIA simmons. Yaneli Hammond Discharge Tipple Repairer
[2022-05-06 17:05] LABS: Bedside Glucose 114 mg/dL (74-106)
[2022-05-06] MEDS: Atorvastatin Calcium 80 MG Tablet PO (21:48)
[2022-05-06] MEDS: MELATONIN 10 MG TABLET 5 MG PO (21:48)
[2022-05-06] MEDS: cycloBENZAPRine HCl 5 MG TABLET PO (21:49)
[2022-05-06] MEDS: Insulin Lispro 100 UNIT/ML INSULN.PEN SC (21:57)
[2022-05-06] MEDS: Gabapentin 300 MG Capsule PO (21:57)
[2022-05-06 23:46] LABS: Bedside Glucose 166 mg/dL (74-106)
[2022-05-07] VITALS (7 sets, daily range): BP systolic 158–168; BP diastolic 87–97; PULSE 72–88; RESP 16; TEMP 36.4–37; O2SAT 93–95
[2022-05-07] MEDS: Lactulose 20 GM/30 ML UDC PO (05:34)
[2022-05-07] MEDS: Sodium Bicarbonate 650 MG Tablet 1300 MG PO ×3 (05:34→21:40)
[2022-05-07] MEDS: oxyCODONE 5 MG Tablet PO ×3 (06:04→18:55)
[2022-05-07 06:11] LABS: Absolute Lymphocyte Count 0.92 X10^3/uL (0.83-4.51); Absolute Neutrophil Count 4.1 X10^3/uL (2.0-7.7); Basophil# 0.08 X10^3/uL; Basophil% 1.3 % (0-1); Eosinophil# 0.53 X10^3/uL; Eosinophils% 8.6 % (0-5); Hematocrit 28.6 % (37-47); Hemoglobin 8.8 g/dL (12.0-15.0); Lymphocyte # 0.92 X10^3/ul (0.83-4.51); Lymphocyte % 14.9 % (19-41); Mean Corp Hgb Conc 30.8 g/dL (32-36); Mean Corpuscular Hgb 28.3 pg (27.0-32.0); Mean Platelet Vol. 10.1 fl (6.2-12.0); Monocyte% 8.1 % (0-10); NRBC Flagged by Analyzer 0 % (0-5); Neutrophil # 4.14 X10^3/uL (2.7-7.7); Neutrophil % 66.8 % (47-70); Platelet Count 402 K/mm3 (150-450); RBC Distribution Width CV 18.2 % (11.6-14.6); RBC Distribution Width SD 60.9 fl (35.1-43.9); Red Blood Count 3.11 M/mm3 (4.2-5.4); White Blood Count 6.2 K/mm3 (4.4-11.0)
[2022-05-07 06:32] LABS: Anion Gap 6 (5-15); BUN 60 mg/dL (7-18); BUN/Creat Ratio 18.5 RATIO (10-20); Calcium,Total 8.1 mg/dL (8.5-10.1); Chloride 113 mmol/L (98-107); Creatinine, Serum 3.25 mg/dL (0.55-1.02); EST Glomerular Filtration Rate 16 mL/min (>60); Est Glom Filt Rate - Afr Amer 19 mL/min (>60); Estimated Creatinine Clearance 18.09 ml/min; Glucose 110 mg/dL (74-106); Potassium 4.7 mmol/L (3.5-5.1); Sodium Level 143 mmol/L (136-145)
[2022-05-07 06:45] LABS: Bedside Glucose 116 mg/dL (74-106)
--- NOTE | 2022-05-07 08:37 | CASEMGMT ---
Discharge Burn Out Scarfing Operator Yaneli lucas anesthesiologist assistant certified called [facility]. Admissions is not in yet. Will follow up. Yaneli Hammond Discharge Burn Out Scarfing Operator
[2022-05-07] MEDS: Enoxaparin 30 MG/0.3 ML Syringe SC (09:07)
[2022-05-07] MEDS: Gabapentin 300 MG Capsule PO ×2 (09:07→21:39)
[2022-05-07] MEDS: Nystatin Powder 15gm Bottle 1 APPLIC TOPICAL ×2 (09:08→21:41)
[2022-05-07] MEDS: Pantoprazole Sodium 40 MG Tablet PO ×2 (09:09→16:57)
[2022-05-07] MEDS: Paroxetine 20 MG Tablet PO (09:09)
[2022-05-07] MEDS: Pramipexole Di-HCl 0.5 MG Tablet 1.5 MG PO ×2 (09:09→21:40)
[2022-05-07] MEDS: Ferrous Sulfate 325 MG Tablet PO (09:09)
[2022-05-07] MEDS: Isosorbide Mononitrate 30 MG Tablet PO (09:09)
[2022-05-07] MEDS: Clopidogrel Bisulfate 75 MG Tablet PO (09:10)
[2022-05-07] MEDS: Ascorbic Acid 500 MG Tablet PO ×2 (09:10→16:57)
[2022-05-07] MEDS: Carvedilol 12.5 MG Tablet PO ×2 (09:10→21:39)
[2022-05-07] MEDS: buPROPion (XL) 150 MG TABLET.XL PO (09:10)
[2022-05-07] MEDS: guaiFENesin 600 MG Tablet PO ×2 (09:13→21:40)
[2022-05-07] MEDS: Multivitamins,Ther W-Minerals Tablet 1 TABLET PO (09:14)
--- NOTE | 2022-05-07 10:30 | CASEMGMT ---
LUCRETIA received a call from Reddy at [facility]. He asked a few questions about patient's IV Antibiotics. They will not be able to take patient due to the cost of her antibiotic. LUCRETIA called [facility] and spoke with Meera. LUCRETIA asked if they could start the pre-cert for patient. LUCRETIA told Meera there are no upcoming appointments for patient in the computer. It also looks like she has not been to see Dr Julian or Dr Edgar since December. LUCRETIA called patient's daughter Trisha. Trisha did not answer and she does not have a voice mail set up yet. SW spoke with patient and let her know about [facility]. Plan: [facility] pending pre-cert. Kamilla Tinsley 4TH GRADE MATH TEACHER GYM TEACHER
--- NOTE | 2022-05-07 11:07 | PN.HOSP_ITS ---
Subjective Subjective Patient seen and examined this morning. She had no active complaints. She was much more alert today, though she does still remain a bit confused as she thinks she came from home, when she came from a SNF. Review of systems is otherwise negative. She is now awaiting placement. She has remained hemodynamically stable . Objective Data Objective Data Vital Signs: Vital Signs Temp Pulse Resp BP Pulse Ox O2 Del Method 98.2 F 79 16 161/87 H 94 Room Air 05/07/22 09:00 05/07/22 09:00 05/07/22 09:00 05/07/22 09:00 05/07/22 09:00 05/07/22 09:00 Oxygen Delivery Method Room Air Weight: 218 lb 7.649 oz Body Mass Index (BMI) 35.1 Intake & Output: Intake and Output for Last 24 Hours 05/05/22 05/06/22 05/07/22 23:59 23:59 23:59 Intake Total 1290.67 / 1290.67 3585.00 / 3585.00 184 / 184 Output Total 1225 / 1225 880 / 880 250 / 250 Balance 65.67 / 65.67 2705.00 / 2705.00 -66 / -66 Lab / Micro Data Result Diagrams: 05/07/22 05:45 05/07/22 05:45 Labs: Laboratory Results - last 24 hr 05/06/22 11:30: POC Glucose 97 05/06/22 16:46: POC Glucose 114 H 05/06/22 21:52: POC Glucose 166 H 05/07/22 05:36: POC Glucose 116 H 05/07/22 05:45: WBC 6.2, RBC 3.11 L, Hgb 8.8 L, Hct 28.6 L, MCV 92.0, MCH 28.3, MCHC 30.8 L, RDW Std Deviation 60.9 H, RDW Coeff of Fior 18.2 H, Plt Count 402, MPV 10.1, Immature Gran % (Auto) 0.300, Neut % (Auto) 66.8, Lymph % (Auto) 14.9 L, Sac % (Auto) 8.1, Eos % (Auto) 8.6 H, Baso % (Auto) 1.3 H, Absolute Neuts (auto) 4.1, Absolute Lymphs (auto) 0.92, Nucleated RBC % 0 05/07/22 05:45: Sodium 143, Potassium 4.7, Chloride 113 H, Carbon Dioxide 24.0, Anion Gap 6, BUN 60 H, Creatinine 3.25 H, Estim Creat Clear Calc 18.09, Est GFR (MDRD) Af Amer 19 L, Est GFR (MDRD) Non-Af 16 L, BUN/Creatinine Ratio 18.5, Glucose 110 H, Calcium 8.1 L Micro: Microbiology 05/05/22 10:15 Urine Catheter - Catheter Urine Culture - Preliminary Yeast Like Organism Physical Exam Const alert HEENT normocephalic, head/scalp atraumatic and hearing grossly normal bilaterally Eyes PERRL, EOMs intact bilaterally and conjunctivae normal Neck no lymphadenopathy and supple Resp Resp Narrative: mildly diminished breath sounds bibasally, no wheezes or crackles. On room air Cardio regular rate, regular rhythm, S1 normal heart sound, S2 normal heart sound and no murmurs GI normal to inspection, nondistended, normoactive bowel sounds, soft to palpation, non-tender and non-distended Extremity normal to inspection, full ROM and no clubbing, cyanosis or edema Skin Skin Narrative: ulceration on the sole of the left foot, which is chronic Neuro oriented x3, CN's II-XII intact bilaterally and moves all extremities Sensorium / Orientation: awake and alert Motor Exam: strength 5/5 throughout Psych Psych Narrative: flat affect Assessment & Plan Assessment/Plan (1) Acute encephalopathy: (2) Hypothermia: PLAN: Plan #Acute metabolic encephalopathy * resolved. * CT of the brain was negative * ammonia was elevated at 43, which could be contributing to encephalopathy * on lactulose; aim is for 2-3 loose stools daily * consult PT/OT. Fall precautions * * * #Hypothermia: resolved. #osteomyelitis of the left foot * on IV ertapenem and IV daptomycin with stop date of 06/24/2022 * cwound care consulted * #Hypertension: on carvedilol #Chronic iron deficiency Anemia * chronic. hb today is 8.8 * on oral iron supplements, so is an iron deficiency anemia * #Diabetes mellitus with peripheral neuropathy * resume lantus. ISS. Accuchecks ACHS * resume gabapentin also * #CAD s/p stents: on plavix, as well as carvedilol and imdur #CKD stage IV: due to diabetes and hypertension. Stable. on sodium bicarbonate DVT prophylaxis: lovenox, renally dosed Code status: full code Disposition: awaiting placement Charges/Coding Visit Charges Inpatient E&M: 33226 Subs Hosp L2
[2022-05-07 12:05] LABS: Bedside Glucose 104 mg/dL (74-106)
[2022-05-07] MEDS: Acetaminophen 325 MG Tablet 650 MG PO ×2 (12:55→18:55)
--- NOTE | 2022-05-07 12:58 | CASEMGMT ---
LUCRETIA faxed PT/OT to [facility]. Plan: d/c to [facility] pending pre-cert. Kamilla Tinsley BRIM PLATER VICE PRESIDENT OF ACADEMIC AFFAIRS
--- NOTE | 2022-05-07 14:56 | CASEMGMT ---
LUCRETIA spoke with patient's daughter Trisha and let her know [facility] can take patient at discharge. LUCRETIA explained she will wait at [facility] until her insurance approves. Plan: d/c to [facility] pending pre-cert. Kamilla MCCORD
[2022-05-07 17:15] LABS: Bedside Glucose 137 mg/dL (74-106)
[2022-05-07] MEDS: Atorvastatin Calcium 80 MG Tablet PO (21:39)
[2022-05-07] MEDS: cycloBENZAPRine HCl 5 MG TABLET PO (21:40)
[2022-05-07] MEDS: MELATONIN 10 MG TABLET 5 MG PO (21:41)
[2022-05-07] MEDS: 0.9% Saline Lock 10 ML Syringe IV (21:46)
[2022-05-07 21:50] LABS: Bedside Glucose 151 mg/dL (74-106)
--- NOTE | 2022-05-07 22:02 | PCM.HOSP.N ---
Hospitalist Note Patient very anxious about another hypoglycemic episode. Off dextrose drip and this evening BS ~ 150. Given her concerns will attempt 10 u SC q HS to start.
[2022-05-08] VITALS (10 sets, daily range): BP systolic 155–177; BP diastolic 91–102; PULSE 77–94; RESP 14–18; TEMP 36.8–37; O2SAT 93–96
[2022-05-08] MEDS: Sodium Bicarbonate 650 MG Tablet 1300 MG PO ×3 (06:42→22:59)
[2022-05-08] MEDS: Lactulose 20 GM/30 ML UDC PO ×2 (06:42→13:30)
--- NOTE | 2022-05-08 06:58 | NURSING ---
all documentation completed by Valorie IGLESIAS reviewed by this RN
[2022-05-08 07:11] LABS: Bedside Glucose 115 mg/dL (74-106)
[2022-05-08 07:46] LABS: Absolute Lymphocyte Count 1.05 X10^3/uL (0.83-4.51); Absolute Neutrophil Count 4.9 X10^3/uL (2.0-7.7); Basophil# 0.07 X10^3/uL; Eosinophil# 0.55 X10^3/uL; Eosinophils% 7.7 % (0-5); Hematocrit 27.9 % (37-47); Hemoglobin 8.4 g/dL (12.0-15.0); Lymphocyte # 1.05 X10^3/ul (0.83-4.51); Lymphocyte % 14.6 % (19-41); Mean Corp Hgb Conc 30.1 g/dL (32-36); Mean Corpuscular Hgb 27.6 pg (27.0-32.0); Mean Corpuscular Volume 91.8 fL (81-99); Mean Platelet Vol. 10.3 fl (6.2-12.0); Monocyte# 0.57 X10^3/uL; Monocyte% 7.9 % (0-10); NRBC Flagged by Analyzer 0 % (0-5); Neutrophil # 4.92 X10^3/uL (2.7-7.7); Neutrophil % 68.5 % (47-70); Platelet Count 384 K/mm3 (150-450); RBC Distribution Width CV 17.7 % (11.6-14.6); RBC Distribution Width SD 59.5 fl (35.1-43.9); Red Blood Count 3.04 M/mm3 (4.2-5.4); White Blood Count 7.2 K/mm3 (4.4-11.0)
[2022-05-08 07:56] LABS: Anion Gap 5 (5-15); BUN 60 mg/dL (7-18); BUN/Creat Ratio 18.3 RATIO (10-20); Calcium,Total 8.1 mg/dL (8.5-10.1); Chloride 112 mmol/L (98-107); Creatinine, Serum 3.27 mg/dL (0.55-1.02); EST Glomerular Filtration Rate 16 mL/min (>60); Est Glom Filt Rate - Afr Amer 19 mL/min (>60); Estimated Creatinine Clearance 17.98 ml/min; Glucose 124 mg/dL (74-106); Potassium 4.6 mmol/L (3.5-5.1); Sodium Level 142 mmol/L (136-145)
[2022-05-08] MEDS: oxyCODONE 5 MG Tablet PO ×2 (09:55→23:31)
[2022-05-08] MEDS: Acetaminophen 325 MG Tablet 650 MG PO ×3 (09:55→23:31)
[2022-05-08] MEDS: 0.9% Saline Lock 10 ML Syringe IV ×3 (09:55→23:09)
[2022-05-08] MEDS: buPROPion (XL) 150 MG TABLET.XL PO (09:58)
[2022-05-08] MEDS: Pramipexole Di-HCl 0.5 MG Tablet 1.5 MG PO ×2 (09:58→22:56)
[2022-05-08] MEDS: guaiFENesin 600 MG Tablet PO (09:59)
[2022-05-08] MEDS: Ascorbic Acid 500 MG Tablet PO ×2 (09:59→16:37)
[2022-05-08] MEDS: Multivitamins,Ther W-Minerals Tablet 1 TABLET PO (09:59)
[2022-05-08] MEDS: Carvedilol 12.5 MG Tablet PO ×2 (09:59→22:59)
[2022-05-08] MEDS: Isosorbide Mononitrate 30 MG Tablet PO (09:59)
[2022-05-08] MEDS: Clopidogrel Bisulfate 75 MG Tablet PO (09:59)
[2022-05-08] MEDS: Pantoprazole Sodium 40 MG Tablet PO ×2 (09:59→16:37)
[2022-05-08] MEDS: Paroxetine 20 MG Tablet PO (09:59)
--- NOTE | 2022-05-08 11:29 | CASEMGMT ---
Social Work Note LUCRETIA placed a call to [facility] and spoke with Meera in admissions. Meera states that when she checked earlier, she had not received pre-cert. LUCRETIA asked Meera to call PCU directly if pre-cert is obtained. LUCRETIA provided PCU direct number. Plan: [facility] pending pre-cert Erika Tobar STITCH BONDING MACHINE DRAWER IN, FORM SETTER/DRIVER
--- NOTE | 2022-05-08 12:14 | PN.HOSP_ITS ---
Subjective Subjective Patient seen and examined. She complained of some back pain. Review of systems is otherwise negative. Objective Data Objective Data Vital Signs: Vital Signs Temp Pulse Resp BP Pulse Ox O2 Del Method 98.6 F 82 16 176/91 H 96 Room Air 05/08/22 09:40 05/08/22 09:40 05/08/22 09:40 05/08/22 09:40 05/08/22 09:40 05/08/22 09:50 Oxygen Delivery Method Room Air Weight: 218 lb 7.649 oz Body Mass Index (BMI) 35.1 Intake & Output: Intake and Output for Last 24 Hours 05/06/22 05/07/22 05/08/22 23:59 23:59 23:59 Intake Total 3585.00 / 3585.00 779 / 779 Output Total 880 / 880 625 / 850 375 / 375 Balance 2705.00 / 2705.00 154 / -71 -375 / -375 Lab / Micro Data Result Diagrams: 05/08/22 07:21 05/08/22 07:21 Labs: Laboratory Results - last 24 hr 05/07/22 16:55: POC Glucose 137 H 05/07/22 21:24: POC Glucose 151 H 05/08/22 06:35: POC Glucose 115 H 05/08/22 07:21: WBC 7.2, RBC 3.04 L, Hgb 8.4 L, Hct 27.9 L, MCV 91.8, MCH 27.6, MCHC 30.1 L, RDW Std Deviation 59.5 H, RDW Coeff of Fior 17.7 H, Plt Count 384, MPV 10.3, Immature Gran % (Auto) 0.300, Neut % (Auto) 68.5, Lymph % (Auto) 14.6 L, [place] % (Auto) 7.9, Eos % (Auto) 7.7 H, Baso % (Auto) 1.0, Absolute Neuts (auto) 4.9, Absolute Lymphs (auto) 1.05, Nucleated RBC % 0 05/08/22 07:21: Sodium 142, Potassium 4.6, Chloride 112 H, Carbon Dioxide 25.0, Anion Gap 5, BUN 60 H, Creatinine 3.27 H, Estim Creat Clear Calc 17.98, Est GFR (MDRD) Af Amer 19 L, Est GFR (MDRD) Non-Af 16 L, BUN/Creatinine Ratio 18.3, Glucose 124 H, Calcium 8.1 L Micro: Microbiology 05/05/22 10:15 Urine Catheter - Catheter Urine Culture - Final Ruthann albicans 05/05/22 10:45 Blood Culture (Wb) - Pic Blood Culture - Preliminary No growth in 48 hours. 05/05/22 10:20 Blood Culture (Wb) - Pic Blood Culture - Preliminary No growth in 48 hours. Physical Exam Const alert and oriented x3 HEENT normocephalic, head/scalp atraumatic and hearing grossly normal bilaterally Mouth: oral and palatal mucosa normal Eyes PERRL, EOMs intact bilaterally and conjunctivae normal Neck no lymphadenopathy and supple Resp Resp Narrative: mildly diminished breath sounds bibasally, no wheezes or crackles. On room air Cardio regular rate, regular rhythm, S1 normal heart sound, S2 normal heart sound and no murmurs GI normal to inspection, nondistended, normoactive bowel sounds, soft to palpation, non-tender and non-distended GI Narrative: minimal generalised tenderness, no guarding or rebound tenderness Extremity normal to inspection, full ROM and no clubbing, cyanosis or edema Skin Skin Narrative: ulceration on the sole of the left foot, which is chronic Neuro oriented x3, CN's II-XII intact bilaterally and moves all extremities Neuro Narrative: encephalopathy has resolved Sensorium / Orientation: awake and alert Motor Exam: strength 5/5 throughout Psych Psych Narrative: flat affect Assessment & Plan Assessment/Plan (1) Acute encephalopathy: (2) Hypothermia: PLAN: Plan #Acute metabolic encephalopathy * resolved. * CT of the brain was negative * ammonia was elevated at 43, which could be contributing to encephalopathy * on lactulose; aim is for 2-3 loose stools daily * consult PT/OT. Fall precautions * #Hypothermia: resolved. #osteomyelitis of the left foot * on IV ertapenem and IV daptomycin with stop date of 06/14/2022 * wound care consulted * #Hypertension: on carvedilol #Chronic iron deficiency Anemia * chronic. hb today is 8.8 * on oral iron supplements, so is an iron deficiency anemia * #Diabetes mellitus with peripheral neuropathy * on lantus. ISS. Accuchecks ACHS * on gabapentin also * #CAD s/p stents: on plavix, as well as carvedilol and imdur #CKD stage IV: due to diabetes and hypertension. Stable. on sodium bicarbonate. Cr is 3.27 today. DVT prophylaxis: lovenox, renally dosed Code status: full code Disposition: awaiting placement Charges/Coding Visit Charges Inpatient E&M: 32592 Subs Hosp L2
[2022-05-08 12:31] LABS: Bedside Glucose 128 mg/dL (74-106)
[2022-05-08] MEDS: Ferrous Sulfate 325 MG Tablet PO (13:31)
[2022-05-08] MEDS: hydrALAZINE 20 MG/ML Vial 10 MG IV (15:27)
[2022-05-08 17:00] LABS: Bedside Glucose 127 mg/dL (74-106)
[2022-05-08] MEDS: Juven (unflavored) Packet 1 PACKET PO (17:36)
[2022-05-08] MEDS: MELATONIN 10 MG TABLET 5 MG PO (22:57)
[2022-05-08] MEDS: cycloBENZAPRine HCl 5 MG TABLET PO (22:58)
[2022-05-08] MEDS: Gabapentin 300 MG Capsule PO (23:03)
[2022-05-08] MEDS: Nystatin Powder 15gm Bottle 1 APPLIC TOPICAL (23:04)
[2022-05-08] MEDS: Insulin Glargine-YFGN 100 UNIT/ML Pen 10 UNIT SC (23:11)
[2022-05-08 23:40] LABS: Bedside Glucose 121 mg/dL (74-106)
[2022-05-09] VITALS (11 sets, daily range): BP systolic 106–173; BP diastolic 91–105; PULSE 64–89; RESP 16–18; TEMP 36.4–36.8; O2SAT 94–96
[2022-05-09] MEDS: hydrALAZINE 20 MG/ML Vial 10 MG IV ×3 (04:11→23:10)
[2022-05-09] MEDS: 0.9% Saline Lock 10 ML Syringe IV ×5 (04:12→22:15)
[2022-05-09 06:15] LABS: Absolute Lymphocyte Count 0.91 X10^3/uL (0.83-4.51); Absolute Neutrophil Count 5.1 X10^3/uL (2.0-7.7); Basophil# 0.06 X10^3/uL; Basophil% 0.8 % (0-1); Eosinophil# 0.56 X10^3/uL; Eosinophils% 7.8 % (0-5); Hemoglobin 8.4 g/dL (12.0-15.0); Lymphocyte # 0.91 X10^3/ul (0.83-4.51); Lymphocyte % 12.7 % (19-41); Mean Corp Hgb Conc 31.1 g/dL (32-36); Mean Corpuscular Hgb 28.3 pg (27.0-32.0); Mean Corpuscular Volume 90.9 fL (81-99); Mean Platelet Vol. 9.6 fl (6.2-12.0); Monocyte# 0.47 X10^3/uL; Monocyte% 6.6 % (0-10); NRBC Flagged by Analyzer 0 % (0-5); Neutrophil # 5.12 X10^3/uL (2.7-7.7); Neutrophil % 71.8 % (47-70); Platelet Count 344 K/mm3 (150-450); RBC Distribution Width CV 17.5 % (11.6-14.6); RBC Distribution Width SD 58.1 fl (35.1-43.9); Red Blood Count 2.97 M/mm3 (4.2-5.4); White Blood Count 7.1 K/mm3 (4.4-11.0)
[2022-05-09] MEDS: Sodium Bicarbonate 650 MG Tablet 1300 MG PO ×2 (06:30→14:31)
[2022-05-09 06:50] LABS: Bedside Glucose 85 mg/dL (74-106)
[2022-05-09 06:51] LABS: Anion Gap 3 (5-15); BUN 57 mg/dL (7-18); BUN/Creat Ratio 17.5 RATIO (10-20); Calcium,Total 8.2 mg/dL (8.5-10.1); Chloride 115 mmol/L (98-107); Creatinine, Serum 3.25 mg/dL (0.55-1.02); EST Glomerular Filtration Rate 16 mL/min (>60); Est Glom Filt Rate - Afr Amer 19 mL/min (>60); Estimated Creatinine Clearance 18.09 ml/min; Glucose 96 mg/dL (74-106); Potassium 4.2 mmol/L (3.5-5.1); Sodium Level 143 mmol/L (136-145)
[2022-05-09] MEDS: guaiFENesin 600 MG Tablet PO (10:35)
[2022-05-09] MEDS: Pantoprazole Sodium 40 MG Tablet PO ×2 (10:35→17:25)
[2022-05-09] MEDS: Juven (unflavored) Packet 1 PACKET PO ×2 (10:35→17:24)
[2022-05-09] MEDS: Carvedilol 12.5 MG Tablet PO (10:35)
[2022-05-09] MEDS: Ascorbic Acid 500 MG Tablet PO ×2 (10:36→17:28)
[2022-05-09] MEDS: Multivitamins,Ther W-Minerals Tablet 1 TABLET PO (10:36)
[2022-05-09] MEDS: Isosorbide Mononitrate 30 MG Tablet PO (10:36)
[2022-05-09] MEDS: Clopidogrel Bisulfate 75 MG Tablet PO (10:36)
[2022-05-09] MEDS: Pramipexole Di-HCl 0.5 MG Tablet 1.5 MG PO (10:37)
[2022-05-09] MEDS: Paroxetine 20 MG Tablet PO (10:37)
[2022-05-09] MEDS: Enoxaparin 30 MG/0.3 ML Syringe SC (10:38)
[2022-05-09] MEDS: Gabapentin 300 MG Capsule PO ×2 (10:44→22:09)
[2022-05-09] MEDS: oxyCODONE 5 MG Tablet PO ×2 (10:45→17:23)
--- NOTE | 2022-05-09 10:49 | PN.HOSP_ITS ---
Subjective Subjective Patient seen and examined. She has no active complaints this morning and had an uneventful night. Review of systems is otherwise negative. Objective Data Objective Data Vital Signs: Vital Signs Temp Pulse Resp BP Pulse Ox O2 Del Method 97.8 F 73 18 106/102 H 96 Room Air 05/09/22 10:31 05/09/22 10:31 05/09/22 10:31 05/09/22 10:31 05/09/22 10:31 05/09/22 10:31 Oxygen Delivery Method Room Air Weight: 218 lb 7.649 oz Body Mass Index (BMI) 35.1 Intake & Output: Intake and Output for Last 24 Hours 05/07/22 05/08/22 05/09/22 23:59 23:59 23:59 Intake Total 779 / 779 775 / 775 Output Total 625 / 850 1200 / 1200 225 / 225 Balance 154 / -71 -425 / -425 -225 / -225 Lab / Micro Data Result Diagrams: 05/09/22 05:56 05/09/22 05:56 Labs: Laboratory Results - last 24 hr 05/08/22 12:09: POC Glucose 128 H 05/08/22 16:35: POC Glucose 127 H 05/08/22 23:06: POC Glucose 121 H 05/09/22 05:56: WBC 7.1, RBC 2.97 L, Hgb 8.4 L, Hct 27.0 L, MCV 90.9, MCH 28.3, MCHC 31.1 L, RDW Std Deviation 58.1 H, RDW Coeff of Fior 17.5 H, Plt Count 344, MPV 9.6, Immature Gran % (Auto) 0.300, Neut % (Auto) 71.8 H, Lymph % (Auto) 12.7 L, [place] % (Auto) 6.6, Eos % (Auto) 7.8 H, Baso % (Auto) 0.8, Absolute Neuts (auto) 5.1, Absolute Lymphs (auto) 0.91, Nucleated RBC % 0 05/09/22 05:56: Sodium 143, Potassium 4.2, Chloride 115 H, Carbon Dioxide 25.0, Anion Gap 3 L, BUN 57 H, Creatinine 3.25 H, Estim Creat Clear Calc 18.09, Est GFR (MDRD) Af Amer 19 L, Est GFR (MDRD) Non-Af 16 L, BUN/Creatinine Ratio 17.5, Glucose 96, Calcium 8.2 L 05/09/22 06:25: POC Glucose 85 Micro: Microbiology 05/05/22 10:15 Urine Catheter - Catheter Urine Culture - Final Ruthann albicans 05/05/22 10:45 Blood Culture (Wb) - Pic Blood Culture - Preliminary No growth in 48 hours. 05/05/22 10:20 Blood Culture (Wb) - Pic Blood Culture - Preliminary No growth in 48 hours. Physical Exam Const alert and oriented x3 Orientation / Consciousness: lethargic HEENT normocephalic, head/scalp atraumatic, hearing grossly normal bilaterally and moist oral mucous membranes Mouth: oral and palatal mucosa normal Eyes PERRL, EOMs intact bilaterally and conjunctivae normal Neck no lymphadenopathy and supple Resp Resp Narrative: mildly diminished breath sounds bibasally, no wheezes or crackles. On room air Cardio regular rate, regular rhythm, S1 normal heart sound, S2 normal heart sound and no murmurs GI normal to inspection, nondistended, normoactive bowel sounds, soft to palpation, non-tender and non-distended GI Narrative: minimal generalised tenderness, no guarding or rebound tenderness Extremity normal to inspection, full ROM and no clubbing, cyanosis or edema Skin Skin Narrative: ulceration on the sole of the left foot, which is chronic; both feet wrapped in bandage Neuro oriented x3, CN's II-XII intact bilaterally and moves all extremities Neuro Narrative: encephalopathy has resolved Sensorium / Orientation: awake and alert Motor Exam: strength 5/5 throughout Psych Psych Narrative: flat affect Assessment & Plan Assessment/Plan (1) Acute encephalopathy: (2) Hypothermia: PLAN: Plan #Acute metabolic encephalopathy * resolved. * CT of the brain was negative * ammonia was elevated at 43, which could be contributing to encephalopathy * on lactulose; aim is for 2-3 loose stools daily * consult PT/OT. Fall precautions * #Hypothermia: resolved. #osteomyelitis of the left foot * on IV ertapenem and IV daptomycin with stop date of 06/14/2022 * wound care on board. * #Hypertension: on carvedilol #Chronic iron deficiency Anemia * chronic. hb today is 8.8 * on oral iron supplements, so is an iron deficiency anemia * #Diabetes mellitus with peripheral neuropathy * on lantus. ISS. Accuchecks ACHS * on gabapentin also * #CAD s/p stents: on plavix, as well as carvedilol and imdur #CKD stage IV: due to diabetes and hypertension. Stable. on sodium bicarbonate. Cr is 3.25 today. DVT prophylaxis: lovenox, renally dosed Code status: full code Disposition: awaiting placement pending precert Charges/Coding Visit Charges Inpatient E&M: 10727 Subs Hosp L2
[2022-05-09] MEDS: Nystatin Powder 15gm Bottle 1 APPLIC TOPICAL (10:54)
--- NOTE | 2022-05-09 11:14 | NURSING ---
patient drank juice and ate cupcake and applesauce ordered emal
[2022-05-09 12:05] LABS: Bedside Glucose 68 mg/dL (74-106)
[2022-05-09] MEDS: buPROPion (XL) 150 MG TABLET.XL PO (14:31)
[2022-05-09] MEDS: Ferrous Sulfate 325 MG Tablet PO (14:32)
[2022-05-09 18:10] LABS: Bedside Glucose 110 mg/dL (74-106)
[2022-05-09] MEDS: Ondansetron 4 MG/2 ML Vial IV (22:09)
[2022-05-09 22:36] LABS: Bedside Glucose 125 mg/dL (74-106)
--- NOTE | 2022-05-09 23:56 | NURSING ---
Tried to give meds crushed in applesauce, pt threw up. PM meds help per MD.
[2022-05-10 00:04] VITALS: BP 158/96; PULSE 83
[2022-05-10 03:00] VITALS: PULSE 78
[2022-05-10 03:36] VITALS: BP 156/99; PULSE 79; RESP 16; TEMP 36.5; O2SAT 95
[2022-05-10 05:48] LABS: Absolute Neutrophil Count 6.5 X10^3/uL (2.0-7.7); Basophil# 0.08 X10^3/uL; Basophil% 0.9 % (0-1); Eosinophil# 0.64 X10^3/uL; Eosinophils% 7.5 % (0-5); Hematocrit 28.5 % (37-47); Hemoglobin 8.8 g/dL (12.0-15.0); Lymphocyte % 9.4 % (19-41); Mean Corp Hgb Conc 30.9 g/dL (32-36); Mean Corpuscular Hgb 28.5 pg (27.0-32.0); Mean Corpuscular Volume 92.2 fL (81-99); Mean Platelet Vol. 9.8 fl (6.2-12.0); Monocyte# 0.44 X10^3/uL; Monocyte% 5.2 % (0-10); NRBC Flagged by Analyzer 0 % (0-5); Neutrophil # 6.53 X10^3/uL (2.7-7.7); Neutrophil % 76.5 % (47-70); Platelet Count 359 K/mm3 (150-450); RBC Distribution Width SD 59.7 fl (35.1-43.9); Red Blood Count 3.09 M/mm3 (4.2-5.4); White Blood Count 8.5 K/mm3 (4.4-11.0)
[2022-05-10 06:14] LABS: Anion Gap 5 (5-15); BUN 58 mg/dL (7-18); BUN/Creat Ratio 18.9 RATIO (10-20); Calcium,Total 8.3 mg/dL (8.5-10.1); Chloride 114 mmol/L (98-107); Creatinine, Serum 3.07 mg/dL (0.55-1.02); EST Glomerular Filtration Rate 17 mL/min (>60); Est Glom Filt Rate - Afr Amer 20 mL/min (>60); Estimated Creatinine Clearance 19.15 ml/min; Glucose 116 mg/dL (74-106); Potassium 4.3 mmol/L (3.5-5.1); Sodium Level 145 mmol/L (136-145)
[2022-05-10] MEDS: Sodium Bicarbonate 650 MG Tablet 1300 MG PO (06:43)
[2022-05-10 06:51] VITALS: PULSE 82
[2022-05-10 07:05] LABS: Bedside Glucose 102 mg/dL (74-106)
[2022-05-10] MEDS: Juven (unflavored) Packet 1 PACKET PO (08:05)
[2022-05-10] MEDS: Multivitamins,Ther W-Minerals Tablet 1 TABLET PO (08:05)
[2022-05-10] MEDS: Pantoprazole Sodium 40 MG Tablet PO (08:05)
[2022-05-10] MEDS: oxyCODONE 5 MG Tablet PO (08:05)
[2022-05-10] MEDS: Ascorbic Acid 500 MG Tablet PO (08:07)
--- NOTE | 2022-05-10 09:06 | PN.HOSP_ITS ---
Subjective Subjective complains of abdominal and back pain. has been having BMs. Objective Data Objective Data Vital Signs: Vital Signs Temp Pulse Resp BP Pulse Ox O2 Del Method 36.5 C L 82 16 156/99 H 95 Room Air 05/10/22 03:36 05/10/22 06:51 05/10/22 03:36 05/10/22 03:36 05/10/22 03:36 05/10/22 08:05 Oxygen Delivery Method Room Air Weight: 99.1 kg Body Mass Index (BMI) 35.1 Intake & Output: Intake and Output for Last 24 Hours 05/08/22 05/09/22 05/10/22 23:59 23:59 23:59 Intake Total 775 / 775 894 / 949 55 55 Output Total 1200 / 1200 225 / 225 Balance -425 / -425 669 / 724 Lab / Micro Data Result Diagrams: 05/10/22 05:20 05/10/22 05:20 Labs: Laboratory Results - last 24 hr 05/09/22 11:01: POC Glucose 68 L 05/09/22 17:26: POC Glucose 110 H 05/09/22 21:15: POC Glucose 125 H 05/10/22 05:20: WBC 8.5, RBC 3.09 L, Hgb 8.8 L, Hct 28.5 L, MCV 92.2, MCH 28.5, MCHC 30.9 L, RDW Std Deviation 59.7 H, RDW Coeff of Fior 18.0 H, Plt Count 359, MPV 9.8, Immature Gran % (Auto) 0.500, Neut % (Auto) 76.5 H, Lymph % (Auto) 9.4 L, [place] % (Auto) 5.2, Eos % (Auto) 7.5 H, Baso % (Auto) 0.9, Absolute Neuts (auto) 6.5, Absolute Lymphs (auto) 0.80 L, Nucleated RBC % 0 05/10/22 05:20: Sodium 145, Potassium 4.3, Chloride 114 H, Carbon Dioxide 26.0, Anion Gap 5, BUN 58 H, Creatinine 3.07 H, Estim Creat Clear Calc 19.15, Est GFR (MDRD) Af Amer 20 L, Est GFR (MDRD) Non-Af 17 L, BUN/Creatinine Ratio 18.9, Glucose 116 H, Calcium 8.3 L 05/10/22 06:41: POC Glucose 102 Micro: Microbiology 05/05/22 10:15 Urine Catheter - Catheter Urine Culture - Final Ruthann albicans 05/05/22 10:45 Blood Culture (Wb) - Pic Blood Culture - Preliminary No growth in 48 hours. 05/05/22 10:20 Blood Culture (Wb) - Pic Blood Culture - Preliminary No growth in 48 hours. Physical Exam Const alert, oriented x3 and no apparent distress Resp normal respiratory effort, no retractions, no use of accessory muscles and clear to auscultation bilaterally Cardio regular rate, regular rhythm, S1 normal heart sound and S2 normal heart sound GI normal to inspection, nondistended, normoactive bowel sounds and soft to palpation GI Narrative: tender throughout. pain out of proportion to exam. Assessment & Plan Assessment/Plan (1) Acute encephalopathy: (2) Hypothermia: PLAN: Plan #Acute metabolic encephalopathy * likely multifactorial * resolved. * CT of the brain was negative * ammonia was elevated at 43, which could be contributing to encephalopathy * on lactulose; aim is for 2-3 loose stools daily * consult PT/OT. Fall precautions * still on cyclobenzaprine and gabapentin, if encephalopathy recurs, would dc these medications. * #Hypothermia: resolved. #osteomyelitis of the left foot * on IV ertapenem and IV daptomycin with stop date of 06/14/2022 * wound care on board. * #Hypertension: on carvedilol #Chronic iron deficiency Anemia * chronic. hb today is 8.8 * on oral iron supplements, so is an iron deficiency anemia * #Diabetes mellitus with peripheral neuropathy * on lantus. ISS. Accuchecks ACHS * on gabapentin also * #CAD s/p stents: on plavix, as well as carvedilol and imdur #CKD stage IV: due to diabetes and hypertension. Stable. on sodium bicarbonate. Cr is 3.25 today. DVT prophylaxis: lovenox, renally dosed Code status: full code Disposition: DC to [facility]
--- NOTE | 2022-05-10 09:16 | WOUNDNOTE ---
wound photo: left plantar foot
--- NOTE | 2022-05-10 09:16 | WOUNDNOTE ---
wound photo: right plantar foot
--- NOTE | 2022-05-10 09:17 | WOUNDNOTE ---
wound photo: right lateral foot
[2022-05-10] MEDS: buPROPion (XL) 150 MG TABLET.XL PO (09:19)
[2022-05-10] MEDS: guaiFENesin 600 MG Tablet PO (09:19)
[2022-05-10] MEDS: Isosorbide Mononitrate 30 MG Tablet PO (09:19)
[2022-05-10] MEDS: Carvedilol 12.5 MG Tablet PO (09:19)
[2022-05-10] MEDS: Paroxetine 20 MG Tablet PO (09:19)
[2022-05-10] MEDS: Pramipexole Di-HCl 0.5 MG Tablet 1.5 MG PO (09:19)
[2022-05-10] MEDS: Clopidogrel Bisulfate 75 MG Tablet PO (09:20)
[2022-05-10] MEDS: Nystatin Powder 15gm Bottle 1 APPLIC TOPICAL (09:20)
[2022-05-10] MEDS: Gabapentin 300 MG Capsule PO (09:20)
[2022-05-10] MEDS: Enoxaparin 30 MG/0.3 ML Syringe SC (09:20)
[2022-05-10 09:30] VITALS: BP 174/88; PULSE 88; RESP 18; TEMP 36.6; O2SAT 94
--- NOTE | 2022-05-10 10:19 | CASEMGMT ---
Social Work Note SW placed a call to Meera at [facility] stating pre-cert was obtained and pt can discharge today. Meera states that she will need a COVID test for pt. Physician updated that pre-cert has been obtained. chain maker updated that pt will need a COVID test. Plan: [facility] skilled today Erika Tobar PERFORMANCE IMPROVEMENT ANALYST, BOTTLING LINE OPERATOR
--- NOTE | 2022-05-10 10:36 | TREXTCAR_ITS ---
Diet Diet Order/Speech Therapy: 05/05/22 19:58 ADA [Diet: Cardiac: Calorie-Controlled] Dietary Modifications:: Sodium Restricted Consistent Carbohydrate Is pt able to select menu?: No How many daily calories?: 1800 calorie Wound(s) Right heel: Wound Type: Neuropathic/Diabetic Foot Ulcer Left foot: Wound Type: Neuropathic/Diabetic Foot Ulcer Dressing Change: AntiMicrobial (Aquacel AG, etc) right foot: Wound Type: healed surgical incision Dressing Change: Dry Sterile Dressing Therapies Weight Bearing: Partial weight bearing Physical Therapy: Eval and Treat Occupational Therapy: Eval and Treat Problem/Diagnosis (1) Acute encephalopathy: Status: Acute Code(s): G93.40 - Encephalopathy, unspecified (2) Hypothermia: Status: Acute Code(s): T68.XXXA - Hypothermia, initial encounter Plan #Acute metabolic encephalopathy * likely multifactorial * resolved. * CT of the brain was negative * ammonia was elevated at 43, which could be contributing to encephalopathy * on lactulose; aim is for 2-3 loose stools daily * consult PT/OT. Fall precautions * still on cyclobenzaprine and gabapentin, if encephalopathy recurs, would dc these medications. * #Hypothermia: resolved. #osteomyelitis of the left foot * on IV ertapenem and IV daptomycin with stop date of 06/14/2022 * wound care on board. * #Hypertension: on carvedilol #Chronic iron deficiency Anemia * chronic. hb today is 8.8 * on oral iron supplements, so is an iron deficiency anemia * #Diabetes mellitus with peripheral neuropathy * on lantus. ISS. Accuchecks ACHS * on gabapentin also * #CAD s/p stents: on plavix, as well as carvedilol and imdur #CKD stage IV: due to diabetes and hypertension. Stable. on sodium bicarbonate. Cr is 3.25 today. DVT prophylaxis: lovenox, renally dosed Code status: full code Disposition: DC to SNF Allergies/Procedures Done in Hospital Allergies Penicillins Allergy (Verified 05/05/22 10:13) swelling in throat vancomycin Allergy (Verified 05/05/22 10:13) Itching metronidazole Adverse Reaction (Verified 05/05/22 10:13) Nausea oxycodone [From OxyContin] Adverse Reaction (Verified 05/05/22 10:13) Shortness of breath Type of Care/Length of Stay Estimated LOS: Convalescent Care Less Than 30 days Type of Care Needed: Skilled Rehab Potential: Fair Prognosis: Fair Additional Orders/Day of Discharge Day of Discharge: 05/10/22 Dietary and Speech Recommendations Dietitian Recommendations/Changes: 1800 calorie/consistent carbohydrate; cardiac/sodium-restricted diet. Will add Ted BID for wound healing. Renal diet restriction as indicated depending on PO adequacy at meals. Discharge Plan Admission Admit Date/Time: 05/05/22 11:35 Primary Reason for Your Visit: encephalopathy Attending Provider: Kali Prado Primary Care Provider: Tiffanie Gutierrez Consulting Providers: Rachel Okeefe Discharge Orders/Prescriptions Prescriptions: New insulin glargine-yfgn 100 unit/mL (3 mL) Insulin Pen 10 unit subcut QHS Qty: 0 0RF Multivit,Stress Formula-Zinc 1 tab PO DAILY Qty: 30 0RF Ted (with collagen) 7-7-1.5 gram Powder In Packet 1 packet PO BIDCM Qty: 0 0RF Continued atorvastatin 80 mg tablet 80 mg PO QHS Qty: 90 3RF isosorbide mononitrate 30 mg tablet extended release 24 hr 30 mg PO DAILY Label Comments: TAKE 1 TABLET BY MOUTH DAILY paroxetine HCl 20 mg tablet 20 mg PO DAILY Label Comments: TAKE 1 TABLET BY MOUTH EVERY DAY IN THE EVENING gabapentin 300 mg capsule 300 mg BID Label Comments: TAKE 3 CAPSULES BY MOUTH THREE TIMES DAILY FOR 90 DAYS. cyclobenzaprine 5 mg Tablet 5 mg PO QHS Qty: 0 0RF carvedilol 12.5 mg Tablet 12.5 mg PO BID hydroxyzine HCl 25 mg Tablet 25 mg PO TID PRN (Reason: Anxiety) bupropion HCl 150 mg tablet extended release 24 hr 150 mg PO DAILY Label Comments: TAKE 1 TABLET BY MOUTH EVERY DAY pramipexole 1.5 mg Tablet 1.5 mg PO BID melatonin 5 mg Tablet 5 mg PO QHS guaifenesin 600 mg Tablet Extended Release 12hr 600 mg PO BID daptomycin 500 mg recon soln 700 mg IV Q48H Qty: 27 0RF Rx Instructions: administer over 30 mins stop date 06/14/22 dx: MRSA osteomyelitis weekly bmp, cbc, LFT, CK, and esr. Fax to [phone] routine picc care with heparin/saline flush per protocol albuterol sulfate 2.5 mg /3 mL (0.083 %) Solution For Nebulization 2.5 mg inhalation Q2H PRN PRN (Reason: Dyspnea, wheezing) Qty: 0 0RF sennosides-docusate sodium [Stool Softener-Stimulant Laxat] 8.6-50 mg Tablet 2 tab PO BID PRN PRN (Reason: Constipation) Qty: 0 0RF clopidogrel 75 mg Tablet 75 mg PO DAILY Qty: 0 0RF sodium bicarbonate 650 mg Tablet 1,300 mg PO TID Qty: 0 0RF nystatin [Nyamyc] 100,000 unit/gram Powder 1 applic topical BID Qty: 0 0RF Protocol: *Topical Application Instructions APPLICATION INSTRUCTIONS: vinicius area insulin lispro [Humalog KwikPen Insulin] 100 unit/mL Insulin Pen See Protocol subcut ACHS Qty: 0 0RF Protocol: 3. Sliding Scale Insulin Med Dosing Condition: 150-189 mg/dl = 1 unit Condition: 190-229 mg/dl = 2 units Condition: 230-269 mg/dl = 3 units Condition: 270-309 mg/dl = 4 units Condition: 310-349 mg/dl = 5 units Condition: 350-399 mg/dl = 6 units Condition: 400-449 mg/dl = 7 units Condition: Greater than 449 call physician Protocol Text: - Use for Total Daily Dose of Insulin 37-55 units - Obsese, infected, or steroid patients MEDIUM DOSING ALGORITHIM menthol-zinc oxide [Calmoseptine] 0.44-20.6 % Ointment 1 applic topical TID Qty: 0 0RF Protocol: *Topical Application Instructions APPLICATION INSTRUCTIONS: buttocks ertapenem [Invanz] 1 gram recon soln 0.5 g IV QHS Rx Instructions: stop date 06/14/22 dx: MRSA osteomyelitis weekly bmp, cbc, LFT, CK, and esr. Fax to [phone] routine picc care with heparin/saline flush per protocol pantoprazole 40 mg Tablet,Delayed Release (Dr/Ec) 40 mg PO BIDCM Qty: 0 0RF ferrous sulfate 325 mg (65 mg iron) tablet 325 mg PO DAILY 30 Days Qty: 30 0RF ascorbic acid (vitamin C) [Vitamin C] 500 mg Tablet 500 mg PO BID Lactobacillus rhamnosus GG 1 unit PO/SL BID acetaminophen [Tylenol] 325 mg tablet 650 mg PO Q4H PRN PRN (Reason: pain or temperature) Discontinued oxycodone 5 mg Tablet 5 mg PO Q6H PRN PRN (Reason: Pain Score 6-10) 2 Days Qty: 8 0RF Theragran-M Tablet 1 tab PO DAILY insulin glargine 100 unit/mL (3 mL) Insulin Pen 15 unit SUBCUT BREAKFAST insulin glargine [Lantus Solostar U-100 Insulin] 100 unit/mL (3 mL) insulin pen 27 ea SUBCUT QHS Stress Tablet W/Zinc Tablet 1 tab PO DAILY Referrals / Follow Up: Tiffanie Gutierrez MD [Primary Care Provider] - Jefe Guadarrama DPM [Med Staff - Active Staff] - Within 2 Weeks Raúl Eric MD [NON-STAFF] - Within 2 Weeks Kike Tello MD [Med Staff - Active Staff] - Within 2 Weeks Disposition Disposition (needs filled in before D/C Order can be placed): [facility] Facility
[2022-05-10] MEDS: Insulin Lispro 100 UNIT/ML INSULN.PEN SC (10:44)
[2022-05-10] MEDS: Ferrous Sulfate 325 MG Tablet PO (10:45)
--- NOTE | 2022-05-10 10:53 | DS.PCM_ITS ---
Providers Date of Admission: 05/05/22 Primary Care Physician: Dr. 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 decrease glargine dosing. * resolved. * CT of the brain was negative * doubt hepatic encephalopathy: dc lactulose. * on lactulose; aim is for 2-3 loose stools daily * consult PT/OT. Fall precautions * still on cyclobenzaprine and gabapentin, if encephalopathy recurs, would dc these medications. * had protracted episode of encephalopathy last admission. will dc narcotics #Hypothermia: resolved. #osteomyelitis of the left foot * on IV ertapenem and IV daptomycin with stop date of 06/14/2022 * wound care on board. * #Hypertension: on carvedilol #Chronic iron deficiency Anemia * chronic. hb today is 8.8 * on oral iron supplements, so is an iron deficiency anemia * #Diabetes mellitus with peripheral neuropathy * on lantus. ISS. Accuchecks ACHS * on gabapentin also * #CAD s/p stents: on plavix, as well as carvedilol and imdur #CKD stage IV: due to diabetes and hypertension. Stable. on sodium bicarbonate. Cr is 3.25 today. DVT prophylaxis: lovenox, renally dosed Code status: full code Disposition: DC to SNF Medications at Discharge Home Medications atorvastatin 80 mg tablet 80 mg PO QHS cholesterol #90 tabs 11/30/19 isosorbide mononitrate 30 mg tablet,extended release 24 hr 30 mg PO DAILY BP 03/03/21 paroxetine HCl 20 mg tablet 20 mg PO DAILY DEPRESSION 07/07/21 cyclobenzaprine 5 mg tablet 5 mg PO QHS pain #0 tabs 12/23/21 gabapentin 300 mg capsule 300 mg BID nerve pain 12/23/21 bupropion HCl 150 mg 24 hr tablet, extended release 150 mg PO DAILY mood 02/04/22 carvedilol 12.5 mg tablet 12.5 mg PO BID heart 02/04/22 hydroxyzine HCl 25 mg tablet 25 mg PO TID PRN Anxiety 02/04/22 guaifenesin 600 mg tablet, extended release 12 hr 600 mg PO BID congestion 04/09/22 melatonin 5 mg tablet 5 mg PO QHS sleep 04/09/22 pramipexole 1.5 mg tablet 1.5 mg PO BID rls 04/09/22 daptomycin 500 mg intravenous solution 700 mg IV Q48H #27 ea 04/22/22 albuterol sulfate 2.5 mg/3 mL (0.083 %) solution for nebulization 2.5 mg (3 mL) inhalation Q2H PRN PRN Dyspnea, wheezing #0 mL 04/24/22 clopidogrel 75 mg tablet 75 mg PO DAILY #0 tabs 04/24/22 insulin lispro 100 unit/mL subcutaneous pen (Humalog KwikPen (U-100) Insulin) See Protocol subcut ACHS #0 mL 04/24/22 menthol 0.44 %-zinc oxide 20.6 % topical ointment (Calmoseptine) 1 applic topical TID #0 grams 04/24/22 nystatin 100,000 unit/gram topical powder (Nyamyc) 1 applic topical BID #0 grams 04/24/22 sennosides 8.6 mg-docusate sodium 50 mg tablet (Stool Softener-Stimulant Laxative) 2 tab PO BID PRN PRN Constipation #0 tabs 04/24/22 sodium bicarbonate 650 mg tablet 1,300 mg PO TID #0 tabs 04/24/22 ertapenem 1 gram solution for injection (Invanz) 0.5 g IV QHS 04/27/22 ferrous sulfate 325 mg (65 mg iron) tablet 325 mg PO DAILY 30 days #30 tabs 04/28/22 pantoprazole 40 mg tablet,delayed release 40 mg PO BIDCM #0 tabs 04/28/22 Lactobacillus rhamnosus GG 1 unit PO/SL BID 05/05/22 acetaminophen 325 mg tablet (Tylenol) 650 mg PO Q4H PRN PRN pain or temperature 05/05/22 ascorbic acid (vitamin C) 500 mg tablet (Vitamin C) 500 mg PO BID 05/05/22 arginine 7 gram-glutam 7 gram-CaHMB 1.5 [id number]-min oral pwd pkt (Ted (with collagen)) 1 packet PO BIDCM #0 ea 05/10/22 insulin glargine-yfgn 100 unit/mL (3 mL) subcutaneous pen 10 unit (0.1 mL) subcut QHS #0 mL 05/10/22 multivit,stress formula-zinc 1 tab PO DAILY #30 tabs 05/10/22 Hospital Course Operations None Procedures None Summary of Care Provided Minutes Spent on Discharge: 35 Weight / BMI Weight Weight: 99.1 kg Body Mass Index (BMI) 35.1 ABG / Lab / Microbiology Data Result Diagrams: 05/10/22 05:20 05/10/22 05:20 Laboratory: Laboratory Results - last 24 hr 05/09/22 11:01: POC Glucose 68 L 05/09/22 17:26: POC Glucose 110 H 05/09/22 21:15: POC Glucose 125 H 05/10/22 05:20: WBC 8.5, RBC 3.09 L, Hgb 8.8 L, Hct 28.5 L, MCV 92.2, MCH 28.5, MCHC 30.9 L, RDW Std Deviation 59.7 H, RDW Coeff of Fior 18.0 H, Plt Count 359, MPV 9.8, Immature Gran % (Auto) 0.500, Neut % (Auto) 76.5 H, Lymph % (Auto) 9.4 L, Morrill % (Auto) 5.2, Eos % (Auto) 7.5 H, Baso % (Auto) 0.9, Absolute Neuts (auto) 6.5, Absolute Lymphs (auto) 0.80 L, Nucleated RBC % 0 05/10/22 05:20: Sodium 145, Potassium 4.3, Chloride 114 H, Carbon Dioxide 26.0, Anion Gap 5, BUN 58 H, Creatinine 3.07 H, Estim Creat Clear Calc 19.15, Est GFR (MDRD) Af Amer 20 L, Est GFR (MDRD) Non-Af 17 L, BUN/Creatinine Ratio 18.9, Glucose 116 H, Calcium 8.3 L 05/10/22 06:41: POC Glucose 102 Microbiology: Microbiology 05/05/22 10:20 Blood Culture (Wb) - Pic Blood Culture - Final No growth in 5 days. 05/05/22 10:15 Urine Catheter - Catheter Urine Culture - Final Ruthann albicans 05/05/22 10:45 Blood Culture (Wb) - Pic Blood Culture - Preliminary No growth in 48 hours. Meaningful Use Info Meaningful Use Diagnoses (Choose all that apply): None applicable Discharge Plan Admission Admit Date/Time: 05/05/22 11:35 Primary Reason for Your Visit: encephalopathy Attending Provider: Kali Prado Primary Care Provider: Tiffanie Gutierrez Consulting Providers: Rachel Okeefe Discharge Orders/Prescriptions Prescriptions: New insulin glargine-yfgn 100 unit/mL (3 mL) Insulin Pen 10 unit subcut QHS Qty: 0 0RF Multivit,Stress Formula-Zinc 1 tab PO DAILY Qty: 30 0RF Ted (with collagen) 7-7-1.5 gram Powder In Packet 1 packet PO BIDCM Qty: 0 0RF Continued atorvastatin 80 mg tablet 80 mg PO QHS Qty: 90 3RF isosorbide mononitrate 30 mg tablet extended release 24 hr 30 mg PO DAILY Label Comments: TAKE 1 TABLET BY MOUTH DAILY paroxetine HCl 20 mg tablet 20 mg PO DAILY Label Comments: TAKE 1 TABLET BY MOUTH EVERY DAY IN THE EVENING gabapentin 300 mg capsule 300 mg BID Label Comments: TAKE 3 CAPSULES BY MOUTH THREE TIMES DAILY FOR 90 DAYS. cyclobenzaprine 5 mg Tablet 5 mg PO QHS Qty: 0 0RF carvedilol 12.5 mg Tablet 12.5 mg PO BID hydroxyzine HCl 25 mg Tablet 25 mg PO TID PRN (Reason: Anxiety) bupropion HCl 150 mg tablet extended release 24 hr 150 mg PO DAILY Label Comments: TAKE 1 TABLET BY MOUTH EVERY DAY pramipexole 1.5 mg Tablet 1.5 mg PO BID melatonin 5 mg Tablet 5 mg PO QHS guaifenesin 600 mg Tablet Extended Release 12hr 600 mg PO BID daptomycin 500 mg recon soln 700 mg IV Q48H Qty: 27 0RF Rx Instructions: administer over 30 mins stop date 06/14/22 dx: MRSA osteomyelitis weekly bmp, cbc, LFT, CK, and esr. Fax to [phone] routine picc care with heparin/saline flush per protocol albuterol sulfate 2.5 mg /3 mL (0.083 %) Solution For Nebulization 2.5 mg inhalation Q2H PRN PRN (Reason: Dyspnea, wheezing) Qty: 0 0RF sennosides-docusate sodium [Stool Softener-Stimulant Laxat] 8.6-50 mg Tablet 2 tab PO BID PRN PRN (Reason: Constipation) Qty: 0 0RF clopidogrel 75 mg Tablet 75 mg PO DAILY Qty: 0 0RF sodium bicarbonate 650 mg Tablet 1,300 mg PO TID Qty: 0 0RF nystatin [Nyamyc] 100,000 unit/gram Powder 1 applic topical BID Qty: 0 0RF Protocol: *Topical Application Instructions APPLICATION INSTRUCTIONS: vinicius area insulin lispro [Humalog KwikPen Insulin] 100 unit/mL Insulin Pen See Protocol subcut ACHS Qty: 0 0RF Protocol: 3. Sliding Scale Insulin Med Dosing Condition: 150-189 mg/dl = 1 unit Condition: 190-229 mg/dl = 2 units Condition: 230-269 mg/dl = 3 units Condition: 270-309 mg/dl = 4 units Condition: 310-349 mg/dl = 5 units Condition: 350-399 mg/dl = 6 units Condition: 400-449 mg/dl = 7 units Condition: Greater than 449 call physician Protocol Text: - Use for Total Daily Dose of Insulin 37-55 units - Obsese, infected, or steroid patients MEDIUM DOSING ALGORITHIM menthol-zinc oxide [Calmoseptine] 0.44-20.6 % Ointment 1 applic topical TID Qty: 0 0RF Protocol: *Topical Application Instructions APPLICATION INSTRUCTIONS: buttocks ertapenem [Invanz] 1 gram recon soln 0.5 g IV QHS Rx Instructions: stop date 06/14/22 dx: MRSA osteomyelitis weekly bmp, cbc, LFT, CK, and esr. Fax to [phone] routine picc care with heparin/saline flush per protocol pantoprazole 40 mg Tablet,Delayed Release (Dr/Ec) 40 mg PO BIDCM Qty: 0 0RF ferrous sulfate 325 mg (65 mg iron) tablet 325 mg PO DAILY 30 Days Qty: 30 0RF ascorbic acid (vitamin C) [Vitamin C] 500 mg Tablet 500 mg PO BID Lactobacillus rhamnosus GG 1 unit PO/SL BID acetaminophen [Tylenol] 325 mg tablet 650 mg PO Q4H PRN PRN (Reason: pain or temperature) Discontinued oxycodone 5 mg Tablet 5 mg PO Q6H PRN PRN (Reason: Pain Score 6-10) 2 Days Qty: 8 0RF Theragran-M Tablet 1 tab PO DAILY insulin glargine 100 unit/mL (3 mL) Insulin Pen 15 unit SUBCUT BREAKFAST insulin glargine [Lantus Solostar U-100 Insulin] 100 unit/mL (3 mL) insulin pen 27 ea SUBCUT QHS Stress Tablet W/Zinc Tablet 1 tab PO DAILY Referrals / Follow Up: Tiffanie Gutierrez MD [Primary Care Provider] - Jefe Guadarrama DPM [Med Staff - Active Staff] - Within 2 Weeks Raúl Eric MD [NON-STAFF] - Within 2 Weeks Kike Tello MD [Med Staff - Active Staff] - Within 2 Weeks Disposition Disposition (needs filled in before D/C Order can be placed): Senior Living Facility Charges/Coding Visit Charges Inpatient E&M: 34242 Disch Hosp
[2022-05-10 11:10] LABS: Bedside Glucose 158 mg/dL (74-106)
--- NOTE | 2022-05-10 11:11 | PHA.DC.MR ---
Pharmacy Service has performed discharge medication reconciliation for this patient. The patient's discharge medication list was reviewed for discrepancies and discrepancies were resolved. Home Medications atorvastatin 80 mg tablet 80 mg PO QHS cholesterol #90 tabs 11/30/19 isosorbide mononitrate 30 mg tablet,extended release 24 hr 30 mg PO DAILY BP 03/03/21 paroxetine HCl 20 mg tablet 20 mg PO DAILY DEPRESSION 07/07/21 cyclobenzaprine 5 mg tablet 5 mg PO QHS pain #0 tabs 12/23/21 gabapentin 300 mg capsule 300 mg BID nerve pain 12/23/21 bupropion HCl 150 mg 24 hr tablet, extended release 150 mg PO DAILY mood 02/04/22 carvedilol 12.5 mg tablet 12.5 mg PO BID heart 02/04/22 hydroxyzine HCl 25 mg tablet 25 mg PO TID PRN Anxiety 02/04/22 guaifenesin 600 mg tablet, extended release 12 hr 600 mg PO BID congestion 04/09/22 melatonin 5 mg tablet 5 mg PO QHS sleep 04/09/22 pramipexole 1.5 mg tablet 1.5 mg PO BID rls 04/09/22 daptomycin 500 mg intravenous solution 700 mg IV Q48H #27 ea 04/22/22 albuterol sulfate 2.5 mg/3 mL (0.083 %) solution for nebulization 2.5 mg (3 mL) inhalation Q2H PRN PRN Dyspnea, wheezing #0 mL 04/24/22 clopidogrel 75 mg tablet 75 mg PO DAILY #0 tabs 04/24/22 insulin lispro 100 unit/mL subcutaneous pen (Humalog KwikPen (U-100) Insulin) See Protocol subcut ACHS #0 mL 04/24/22 menthol 0.44 %-zinc oxide 20.6 % topical ointment (Calmoseptine) 1 applic topical TID #0 grams 04/24/22 nystatin 100,000 unit/gram topical powder (Nyamyc) 1 applic topical BID #0 grams 04/24/22 sennosides 8.6 mg-docusate sodium 50 mg tablet (Stool Softener-Stimulant Laxative) 2 tab PO BID PRN PRN Constipation #0 tabs 04/24/22 sodium bicarbonate 650 mg tablet 1,300 mg PO TID #0 tabs 04/24/22 ertapenem 1 gram solution for injection (Invanz) 0.5 g IV QHS 04/27/22 ferrous sulfate 325 mg (65 mg iron) tablet 325 mg PO DAILY 30 days #30 tabs 04/28/22 pantoprazole 40 mg tablet,delayed release 40 mg PO BIDCM #0 tabs 04/28/22 Lactobacillus rhamnosus GG 1 unit PO/SL BID 05/05/22 acetaminophen 325 mg tablet (Tylenol) 650 mg PO Q4H PRN PRN pain or temperature 05/05/22 ascorbic acid (vitamin C) 500 mg tablet (Vitamin C) 500 mg PO BID 05/05/22 arginine 7 gram-glutam 7 gram-CaHMB 1.5 [id number]-[id number]-min oral pwd pkt (Ted (with collagen)) 1 packet PO BIDCM #0 ea 05/10/22 insulin glargine-yfgn 100 unit/mL (3 mL) subcutaneous pen 10 unit (0.1 mL) subcut QHS #0 mL 05/10/22 multivit,stress formula-zinc 1 tab PO DAILY #30 tabs 05/10/22
--- NOTE | 2022-05-10 12:06 | CASEMGMT ---
Social Work Note SW faxed completed discharge paperwork to [facility] including transfer to extended care facility, signed medication list, any scripts, COVID test/tool, and HENS. Original in SNF folder and copy on pt's chart. HENS was completed last admission for pt and since there has been no break in care, SW can use the other HENS that has been completed for pt. SW spoke with RN, pt to transport via cot. SW accessed trip assist and arranged transportation via cot for 1:30pm. Transportation form completed and placed on SNF folder and copy on pt's chart. SW updated RN on transportation time. SW placed a call to Meera at [facility] and updated her on transportation time. SW in to speak with pt and updated her that she will discharge to [facility] today and transportation is arranged for 1:30pm. SW informed pt that this worker will call her daughter to update. Pt states she's at work now. SW informed pt that this worker will try and call her still. Pt states understanding. SW attempted to call pt's daughter Trisha, no answer, voicemail is not set up. SW will try again to call Trisha before pt discharges. Plan: [facility] skilled today under convalescent stay with Physician's transporting pt via cot at 1:30pm. Erika Tobar AUTOMATIC FANCY MACHINE OPERATOR, ORDER DISPATCHER CHIEF
[2022-05-10 12:27] VITALS: BP 170/93; PULSE 89; RESP 18; TEMP 36.6; O2SAT 97
== END 2022-05-10 13:44 | DRG 637 ==
LOC: ED 11:42 → PCU 12:00
PROVIDERS: Admitting Provider Student in an Organized Health Care Education/Training Program; Emergency Provider Emergency Medicine; PCP Internal Medicine
DX: E11.649 Type 2 diabetes mellitus with hypoglycemia without coma (principal); G93.41 Metabolic encephalopathy; E72.20 Disorder of urea cycle metabolism, unspecified; M86.8X7 Other osteomyelitis, ankle and foot; T68.XXXA Hypothermia, initial encounter; E11.610 Type 2 diabetes mellitus with diabetic neuropathic arthropathy; D63.8 Anemia in other chronic diseases classified elsewhere; E11.42 Type 2 diabetes mellitus with diabetic polyneuropathy; E11.22 Type 2 diabetes mellitus with diabetic chronic kidney disease; N18.4 Chronic kidney disease, stage 4 (severe); E11.621 Type 2 diabetes mellitus with foot ulcer; L97.523 Non-pressure chronic ulcer of other part of left foot with necrosis of muscle; Z79.4 Long term (current) use of insulin; E11.69 Type 2 diabetes mellitus with other specified complication; I25.5 Ischemic cardiomyopathy; I25.10 Atherosclerotic heart disease of native coronary artery without angina pectoris; E78.5 Hyperlipidemia, unspecified; I12.9 Hypertensive chronic kidney disease with stage 1 through stage 4 chronic kidney disease, or unspecified chronic kidney disease; D50.9 Iron deficiency anemia, unspecified; I25.2 Old myocardial infarction; E66.9 Obesity, unspecified; Z68.35 Body mass index [BMI] 35.0-35.9, adult; Z20.822 Contact with and (suspected) exposure to COVID-19; Z86.16 Personal history of COVID-19; Z79.02 Long term (current) use of antithrombotics/antiplatelets; Z95.5 Presence of coronary angioplasty implant and graft; Z86.73 Personal history of transient ischemic attack (TIA), and cerebral infarction without residual deficits
CPT/HCPCS: 36415; 36592; 70450; 71045; 80048; 80053; 81001; 82140; 82248; 82962; 83605; 84443; 85025; 85610; 85730; 87040; 87086; 87088; 87426; 93005; 97110; 97162; 97166; 97530; 97802; 97803; 99285; J0878; J7030; J7050; A4216; J2405; J3490; J7799

== ENCOUNTER 2022-07-19 15:30 | Inpatient (IN) | payer MEDICARE, MEDICAID, SELFPAY ==
[2018-09-21 13:23] VITALS: BMI 29.3
[2022-07-19 15:37] VITALS: BMI 26.3
[2022-07-19 15:40] VITALS: PULSE 78
[2022-07-19 15:41] VITALS: BP 103/61; PULSE 77; RESP 18; TEMP 37.1; O2SAT 99
--- NOTE | 2022-07-19 16:22 | HP.PCM.HOS_ITS ---
HPI - General General Date of Admission: 07/19/22 Date of Service: 07/19/22 Chief Complaint: confusion HPI Narrative DIONY ROCHA, is a 57 F who presents with confusion. Patient was sent to the emergency room and her glucose was noted to be 64. Patient was also hypoxic with pulse ox at 60%. Patient was placed on oxygen and her oxygenation improved. Patient was checked for COVID and that was negative. There is concern for pneumonia patient did receive ceftriaxone and azithromycin. Patient is troponins went from 171-668. Patient is lethargic and is a poor historian. History is obtained through the hospitalist who spoke with the emergency room at the outside hospital. [facility] Medical History Acquired varus deformity of left foot Acquired varus deformity of right foot Acute lumbar radiculopathy Acute on chronic anemia Adult failure to thrive Amputation foot, bilat Anemia due to chronic illness Anemia in chronic illness Anxiety and depression Atherosclerosis of red devil coronary artery of red devil heart without angina pectoris Back pain, chronic Bilateral edema of lower extremity Cellulitis Cellulitis of both lower extremities Charcot's joint of right foot Charcot's joint, left ankle and foot Charcot's joint, right ankle and foot Chronic foot pain Chronic kidney disease, stage 3b Chronic kidney disease, stage 4 (severe) Chronic renal disease, stage 4, severely decreased glomerular filtration rate (GFR) between 15-29 mL/min/1.73 square meter Chronic renal insufficiency Chronic ulcer of left foot with fat layer exposed 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 Chronic ulcer of right foot with fat layer exposed Chronic ulcer of right foot with necrosis of bone Chronic ulcer of right foot with necrosis of muscle Chronic ulcer of right leg with fat layer exposed COVID-19 (08/28/21) CRF (chronic renal failure) Debility Delayed wound healing Diabetes Diabetes mellitus with diabetic polyneuropathy Diabetic foot ulcer associated with type 2 diabetes mellitus Diabetic foot ulcers Diabetic infection of left foot Diabetic polyneuropathy Diabetic ulcer of right ankle Elevated troponin Essential (primary) hypertension Essential hypertension Foot osteomyelitis, left GERD (gastroesophageal reflux disease) Hemoglobin A1c greater than 9.0% HLD (hyperlipidemia) Hyperparathyroidism, secondary renal Hypertension Iron deficiency anemia Ischemic cardiomyopathy Myocardial infarct Non-compliance Non-pressure chronic ulcer of other part of left foot with fat layer exposed Non-pressure chronic 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 layer exposed Non-smoker Normocytic anemia NSTEMI (non-ST elevated myocardial infarction) (09/20/18) Obesity (BMI 30.0-34.9) Osteomyelitis of left foot Osteomyelitis of metatarsal RLS (restless legs syndrome) Stage 4 chronic kidney disease TIA (transient ischemic attack) Type 2 diabetes mellitus 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 Ulcer of left foot with fat layer exposed Ulcer of left foot with muscle involvement without evidence of necrosis Ulcer of left foot with necrosis of muscle Ulcer of right lower extremity with fat layer exposed Home Medications atorvastatin 80 mg tablet 80 mg PO QHS cholesterol #90 tabs 11/30/19 [Rx Last Taken 04/07/22] isosorbide mononitrate 30 mg tablet,extended release 24 hr 30 mg PO DAILY BP 03/03/21 [History Last Taken 04/07/22] paroxetine HCl 20 mg tablet 20 mg PO DAILY DEPRESSION 07/07/21 [History Last Taken 04/07/22] cyclobenzaprine 5 mg tablet 5 mg PO QHS pain #0 tabs 12/23/21 [Rx Last Taken 04/07/22] gabapentin 300 mg capsule 300 mg BID nerve pain 12/23/21 [History Last Taken 04/07/22] bupropion HCl 150 mg 24 hr tablet, extended release 150 mg PO DAILY mood 02/04/22 [History Last Taken 04/07/22] carvedilol 12.5 mg tablet 12.5 mg PO BID heart 02/04/22 [History Last Taken 04/07/22] hydroxyzine HCl 25 mg tablet 25 mg PO TID PRN Anxiety 02/04/22 [History Last Taken 04/07/22] guaifenesin 600 mg tablet, extended release 12 hr 600 mg PO BID congestion 04/09/22 [History Last Taken 04/07/22] melatonin 5 mg tablet 5 mg PO QHS sleep 04/09/22 [History Last Taken 04/07/22] pramipexole 1.5 mg tablet 1.5 mg PO BID rls 04/09/22 [History Last Taken 04/07/22] daptomycin 500 mg intravenous solution 700 mg IV Q48H #27 ea 04/22/22 [Rx Last Taken Unknown] albuterol sulfate 2.5 mg/3 mL (0.083 %) solution for nebulization 2.5 mg (3 mL) inhalation Q2H PRN PRN Dyspnea, wheezing #0 mL 04/24/22 [Rx Last Taken Unknown] clopidogrel 75 mg tablet 75 mg PO DAILY #0 tabs 04/24/22 [Rx Last Taken Unknown] insulin lispro 100 unit/mL subcutaneous pen (Humalog KwikPen (U-100) Insulin) See Protocol subcut ACHS #0 mL 04/24/22 [Rx Last Taken Unknown] menthol 0.44 %-zinc oxide 20.6 % topical ointment (Calmoseptine) 1 applic topical TID #0 grams 04/24/22 [Rx Last Taken Unknown] nystatin 100,000 unit/gram topical powder (Nyamyc) 1 applic topical BID #0 grams 04/24/22 [Rx Last Taken Unknown] sennosides 8.6 mg-docusate sodium 50 mg tablet (Stool Softener-Stimulant Laxative) 2 tab PO BID PRN PRN Constipation #0 tabs 04/24/22 [Rx Last Taken Unknown] sodium bicarbonate 650 mg tablet 1,300 mg PO TID #0 tabs 04/24/22 [Rx Last Taken Unknown] ertapenem 1 gram solution for injection (Invanz) 0.5 g IV QHS 04/27/22 [History Last Taken Unknown] ferrous sulfate 325 mg (65 mg iron) tablet 325 mg PO DAILY 30 days #30 tabs 04/28/22 [Rx Last Taken Unknown] pantoprazole 40 mg tablet,delayed release 40 mg PO BIDCM #0 tabs 04/28/22 [Rx Last Taken Unknown] Lactobacillus rhamnosus GG 1 unit PO/SL BID 05/05/22 [History Last Taken Unknown] acetaminophen 325 mg tablet (Tylenol) 650 mg PO Q4H PRN PRN pain or temperature 05/05/22 [History Last Taken Unknown] ascorbic acid (vitamin C) 500 mg tablet (Vitamin C) 500 mg PO BID 05/05/22 [History Last Taken Unknown] arginine 7 gram-glutam 7 gram-CaHMB 1.5 avbv-tntbi-bt-min oral pwd pkt (Ted (with collagen)) 1 packet PO BIDCM #0 ea 05/10/22 [Rx Last Taken Unknown] insulin glargine-yfgn 100 unit/mL (3 mL) subcutaneous pen 10 unit (0.1 mL) subcut QHS #0 mL 05/10/22 [Rx Last Taken Unknown] multivit,stress formula-zinc 1 tab PO DAILY #30 tabs 05/10/22 [Rx Last Taken Unknown] Allergy/AdvReac Type Severity Reaction Status Date / Time Penicillins Allergy swelling Verified 05/05/22 10:13 in throat vancomycin Allergy Itching Verified 05/05/22 10:13 metronidazole AdvReac Nausea Verified 05/05/22 10:13 oxycodone [From OxyContin] AdvReac Shortness Verified 05/05/22 10:13 of breath Family History Mother Diabetes CVA (cerebral vascular accident) Brother CAD (coronary artery disease) CABG X 3 Cancer testicular Diabetes Brother CAD (coronary artery disease) CABG X3 Diabetes Brother CAD (coronary artery disease) Stents Diabetes Sister CAD (coronary artery disease) CABG x 3 CVA (cerebral vascular accident) Diabetes Surgical History History of bilateral carpal tunnel release History of History of coronary artery stent placement (12/31/20) History of foot surgery History of rotator cuff surgery Social History household members: none number of children: 2 current occupational status: disabled Smoking Status: Never smoker alcohol intake: never substance use type: does not use caffeine: Yes Type: carbonated beverages Number of servings: 2 ROS ROS Narrative Denies any chest pain, [place] palpitations, denies shortness of breath. All review of systems were negative except as mentioned above in the history of present illness and the other review of systems. Vital Signs Vital Signs Vital Signs: 07/19/22 15:41 07/19/22 16:00 07/19/22 15:41 Temperature 37.1 C 37.1 C Temperature Source Temporal Temporal Pulse Rate 77 77 Respiratory Rate 18 18 Respiratory Effort Normal Non-Labored Respiratory Depth Normal Blood Pressure 103/61 103/61 Blood Pressure Mean 75 75 Blood Pressure Source Monitor Blood Pressure Position Semi-Fowlers Blood Pressure Location Left Arm Pulse Ox 99 99 Oxygen Delivery Method Nasal Cannula Nasal Cannula Nasal Cannula Oxygen Flow Rate (L/min) 3 3 3 Weight Weight: 74 kg Body Mass Index (BMI) 26.3 Physical Exam Const Constitutional Narrative: Listless. Dozes off during encounter. HEENT normocephalic and head/scalp atraumatic Resp normal respiratory effort, no retractions, no use of accessory muscles and clear to auscultation bilaterally GI normal to inspection, nondistended, normoactive bowel sounds, soft to palpation, non-tender and non-distended Extremity Extremity Narrative: Does have a healed ulcer on the plantar aspect of her left heel. Patient is status post amputation of bilateral fifth digits on her feet. Neuro moves all extremities and no focal motor deficits Results Lab / Micro Data Attestation: I reviewed the patient's lab results. Labs: CBC: White count 16.5, hemoglobin 9, platelets 260 Lactate 1.8 Troponin 171 and subsequent troponin 668 BMP: Sodium 142, potassium 3.6, glucose 64, creatinine 3.83. Albumin 1.7 Chest x-ray personally reviewed and showed poor inspiratory effort. Slight pulmonary vascular congestion. No pulmonary infiltrates identified. EKG Initial EKG: Attestation: I personally reviewed and interpreted this EKG as follows: Prior EKG tracings: available for review EKG Rhythm Intrepretation: Sinus Rhythm Assessment & Plan Assessment/Plan (1) Encephalopathy acute: PLAN: Suspect toxic due to multiple medications. Reviewing my previous discharge summary, patient had recurrent encephalopathy was my recommendation to decrease the cyclobenzaprine and gabapentin, which I will do. Patient is also recent been started back up on narcotics and is currently taking [place] 5/325. Will discontinue those medications plus hydroxyzine paroxetine and Mirapex for the time being. Additionally discontinue tramadol. Avoid potentiating medications Check head CT throughout any other acute process. I do not feel any more thorough stroke work-up is necessary at this time. (2) Acute respiratory failure with hypoxia: PLAN: Pulse ox was reported at 60% when she presented to the outside facility. Currently stable on nasal cannula. Chest x-ray is really not that significant and I do not appreciate any infiltrate. Patient did receive antibiotics at the outside hospital. We will hold off any additional antibiotics at this time. (3) Non-STEMI (non-ST elevated myocardial infarction): PLAN: Likely a type II event given the patient's hypoxia encephalopathy. Check an echocardiogram Will cycle troponins and if her troponins are going upwards and will initiate anticoagulation and consult cardiology but is trending down then would not proceed with any additional work-up outside and echocardiogram. If the echocardiogram does show wall motion abnormality then would consider consulta tion to cardiology (4) End stage renal disease: PLAN: Recently started on hemodialysis. Consult nephrology I do not feel that the patient is uremic at this time. (5) Hypoglycemia: PLAN: Has been an ongoing issue. Patient had been on gabapentin which has been discontinued. Blood sugars were not terribly low so not really sure how much of this was contributing to her encephalopathy. (6) Osteomyelitis: PLAN: Had completed daptomycin and ertapenem. Wound on her foot appears well at this time. PLAN: Plan VTE prophylaxis: Anticoagulation CODE STATUS: Cannot adequately assess the with the patient at this time. Therefore patient will be full code unverified. Charges/Coding Visit Charges Inpatient E&M: 47051 Init Hosp L3
--- NOTE | 2022-07-19 16:27 | CT_ITS ---
INDICATION: encephalopathy EXAMINATION: CT BRAIN - CT Head or Brain W/O Contrast Injection TECHNIQUE: Multiple axial images were obtained of the head without intravenous contrast. A radiation dose optimization technique was used for this scan. IV Contrast dosage and agent: None. COMPARISON: 05/05/2022 and 02/04/2022 CT head. FINDINGS: BRAIN PARENCHYMA: No intra- or extra-axial hemorrhage. No intracranial mass or mass effect. Knutson/white matter differentiation is maintained and there is no blurring of the basal ganglia. There is no hyperdense vessel. There is at least moderate scattered areas of decreased density in the periventricular white matter most likely representing chronic small vessel ischemic changes. These are not significantly changed compared to prior exams. More focal hypodensity right basal ganglia region likely representing lacunar infarct. Posterior fossa structures are unremarkable. CSF SPACES: Appropriate for age. No hydrocephalus. Basal cisterns are patent. CALVARIUM, SKULL BASE, PARANASAL SINUSES AND MASTOID AIR CELLS: Clear. No discrete lytic or blastic abnormalities. ORBITS: Both globes, extraocular muscles, optic nerves and retrobulbar fat appear unremarkable. ASPECTS Score for Acute Strokes: 10 CT/Brain/Head without Contrast IMPRESSION: No change compared with prior comparison exams with chronic small vessel ischemic changes noted. Electronically Signed: Kayden Duncan DO at 17:37 EDT ,
--- NOTE | 2022-07-19 16:27 | ECHOD_ITS ---
Reason For Study: S/P [place] Procedure This was a 2D Doppler, Color Flow transthoracic echocardiogram. Pt scanned in supine position due to recent heart cath. Exam performed portable in patient room. Left Ventricle Normal LV size. The estimated ejection fraction is 35 %. No regional wall motion abnormalities noted. There is moderate global hypokinesis of the left ventricle. Right Ventricle Normal RV size. Normal systolic function. Atria Normal left atrium. Normal right atrium. Mitral Valve Normal mitral valve. Mild (1+) eccentric mitral valve insufficiency. Tricuspid Valve Normal tricuspid valve. Mild to moderate (1-2+) tricuspid valve insufficiency. Pulmonary artery systolic pressure is 48 mmHg. Aortic Valve Trisinus/trileaflet aortic valve. Pulmonic Valve Normal pulmonic valve. Pericardium/Pleural No pericardial effusion. Small left pleural effusion. MMode/2D Measurements & Calculations LVIDd: 5.8 cm IVSd: 0.89 cm Ao root diam: 2.6 cm LVIDs: 4.6 cm LVPWd: 0.74 cm RVDd: 4.1 cm FS: 19.6 % LAV(MOD-sp4): 52.7 ml LVAd ap4: 30.0 cm2 SV(MOD-sp4): 24.6 ml LVLd ap4: 8.2 cm EDV(MOD-sp4): 88.6 ml EDV(sp4-el): 93.3 ml LVAs ap4: 24.5 cm2 LVLs ap4: 7.7 cm ESV(MOD-sp4): 63.9 ml ESV(sp4-el): 66.3 ml EF(MOD-sp4): 27.8 % EF(sp4-el): 28.9 % SV(sp4-el): 27.0 ml LA dimension(2D): 3.7 cm LA A4 area: 19.8 cm2 RA A4 area: 18.2 cm2 Time Measurements MV dec time: 0.16 sec Doppler Measurements & Calculations MV E max rhys: 70.1 cm/sec Lat Peak E' Rhys: 6.6 cm/sec Med Peak E' Rhys: 4.7 cm/sec MV A max rhys: 78.2 cm/sec E/E' lat: 10.6 E/E' med: 15.1 MV E/A: 0.90 MV V2 max: 86.0 cm/sec Ao V2 max: 109.2 cm/sec MV max P.0 mmHg MV dec slope: 547.0 cm/sec2 Ao max P.0 mmHg MV V2 mean: 65.5 cm/sec Ao V2 mean: 74.6 cm/sec MV mean P.9 mmHg Ao mean P.8 mmHg MV V2 VTI: 27.8 cm Ao V2 VTI: 18.1 cm LV V1 max: 88.3 cm/sec PA V2 max: 104.1 cm/sec TR max rhys: 317.1 cm/sec LV V1 max P.1 mmHg PA max PG (full): 2.5 mmHg TR max P.2 mmHg LV V1 mean P.8 mmHg PA V2 mean: 69.4 cm/sec LV V1 mean: 61.9 cm/sec PA mean PG (full): 1.2 mmHg LV V1 VTI: 17.8 cm ECHO/Echo Complete Interpretation Summary Normal LV size. The estimated ejection fraction is 35 %. There is moderate global hypokinesis of the left ventricle. Mild (1+) eccentric mitral valve insufficiency. Pulmonary artery systolic pressure is 48 mmHg. Compared to previous study, the left ventricular systolic function has worsened .. Ordering Physician: Kali Prado Performed By: Azucena Vidales RCS
--- NOTE | 2022-07-19 16:27 | EKG12_ITS ---
Test Reason : ADMIT EKG Blood Pressure : / mmHG Vent. Rate : 072 BPM Atrial Rate : 072 BPM P-R Int : 166 ms QRS Dur : 092 ms QT Int : 436 ms P-R-T Axes : 047 016 129 degrees QTc Int : 477 ms Normal sinus rhythm Minimal voltage criteria for LVH, may be normal variant ( Davin product ) Nonspecific T wave abnormality Prolonged QT Abnormal ECG Confirmed by OTTO DELVALLE, DOMINIQUE ([id number]), editorial cartoonist HARINI PHAM ([id number]) on 07/20/2022 1:48:33 PM Referred By: Confirmed By:DOMINIQUE MENJIVAR MD
[2022-07-19] MEDS: Aspirin 81 MG TAB.CHEW 324 MG PO (17:09)
[2022-07-19 17:41] LABS: Absolute Lymphocyte Count 0.58 X10^3/uL (0.83-4.51); Absolute Neutrophil Count 16.4 X10^3/uL (2.0-7.7); Basophil# 0.04 X10^3/uL; Basophil% 0.2 % (0-1); Eosinophil# 0.07 X10^3/uL; Eosinophils% 0.4 % (0-5); Hematocrit 26.3 % (37-47); Hemoglobin 7.8 g/dL (12.0-15.0); Lymphocyte # 0.58 X10^3/ul (0.83-4.51); Lymphocyte % 3.2 % (19-41); Mean Corp Hgb Conc 29.7 g/dL (32-36); Mean Corpuscular Hgb 28.7 pg (27.0-32.0); Mean Corpuscular Volume 96.7 fL (81-99); Mean Platelet Vol. 10.4 fl (6.2-12.0); Monocyte# 0.97 X10^3/uL; Monocyte% 5.3 % (0-10); NRBC Flagged by Analyzer 0 % (0-5); Neutrophil # 16.39 X10^3/uL (2.7-7.7); Neutrophil % 89.6 % (47-70); POSITIVE DIFFERENTIAL YES; Platelet Count 203 K/mm3 (150-450); RBC Distribution Width SD 52.7 fl (35.1-43.9); Red Blood Count 2.72 M/mm3 (4.2-5.4); White Blood Count 18.3 K/mm3 (4.4-11.0)
[2022-07-19 17:45] LABS: International Normalized Ratio 1.8; Prothrombin Time (Protime)PT. 20.2 SECONDS (11.7-14.9)
[2022-07-19 17:46] LABS: Partial Thromboplast Time 40.2 Seconds (24.1-36.2)
[2022-07-19 17:55] LABS: Differential Indicated SCAN CRITERIA MET
[2022-07-19] MEDS: HEPARIN/D5w 25,000 UNITS 25,000 UNITS/250 ML IV.SOLN. 11 UNITS CONT INF (17:55)
[2022-07-19] MEDS: Heparin Injection (Vial) 5,000 UNIT/ML VIAL 5000 UNIT IV (17:55)
[2022-07-19 17:56] LABS: Differential Comment SCANNED
[2022-07-19 18:37] LABS: Troponin-I HS 824 pg/mL (3.0-54.0)
[2022-07-19 18:45] VITALS: BP 129/59; PULSE 74; RESP 20; TEMP 36.6; O2SAT 95
[2022-07-19 18:59] VITALS: PULSE 73
[2022-07-19 19:11] LABS: Bedside Glucose 88 mg/dL (74-106)
[2022-07-19 19:58] LABS: Troponin-I HS 808 pg/mL (3.0-54.0)
[2022-07-19 22:13] VITALS: BP 147/76; PULSE 70; RESP 18; TEMP 36.3; O2SAT 98
[2022-07-19] MEDS: Nystatin Powder 15gm Bottle 1 APPLIC TOPICAL (22:18)
[2022-07-19] MEDS: Menthol/Lanolin/Calamine/Znox 113 GM Tube 1 APPLIC TOPICAL (22:21)
[2022-07-20] VITALS (23 sets, daily range): BP systolic 132–152; BP diastolic 69–85; PULSE 69–96; RESP 16–18; TEMP 36.3–37.3; O2SAT 96–100
[2022-07-20 00:14] LABS: Troponin-I HS 699 pg/mL (3.0-54.0)
[2022-07-20 00:26] LABS: Partial Thromboplast Time > 200.0 Seconds (24.1-36.2)
[2022-07-20 00:41] LABS: Bedside Glucose 104 mg/dL (74-106)
[2022-07-20 07:00] LABS: Bedside Glucose 76 mg/dL (74-106)
--- NOTE | 2022-07-20 07:56 | CON.PCM.CA_ITS ---
Assessment & Plan Assessment/Plan (1) Non-STEMI (non-ST elevated myocardial infarction): PLAN: She presents with a non-ST elevation myocardial infarction. She does have known coronary artery disease. I would recommend that with the level of troponin we perform a limited cardiac catheterization to assess coronary anatomy and depending on the findings further recommendations will be made. There was benefits alternatives have been explained to her. Addendum: Cardiac catheterization with limited contrast demonstrated normal left main coronary artery Left anterior descending artery with previously placed stents noted to be patent. Mild first diagonal disease. Left circumflex artery with ostial mid circumflex 70% stenosis unchanged from before. Right coronary artery with no significant stenosis. Based on the above angiographic findings would continue current medical therapy. The exact reason for the troponin elevation is not entirely clear at this time. Above discussed with hospitalist. (2) End stage renal disease: PLAN: She does have end-stage renal disease and would be considered for dialysis after at the heart catheterization. HPI Consult Data Date of Consult: 07/20/22 HPI Narrative HPI Narrative: DIONY ROCHA, is a 57 F who presents to an outside hospital with confusion and presumed pneumonia. She has a history of hypertension, premature coronary artery disease, end-stage renal disease on dialysis and a history of osteomyelitis. Cardiology was asked to see her during this visit because of an elevated troponin. She denied any chest pain or paroxysmal nocturnal dyspnea or pedal edema. This morning her major issue appears to be related to diarrhea. She previously was evaluated and had an echocardiogram within the last 2 months which demonstrated preserved ejection fraction of 55%. In March 2021 she underwent a cardiac catheterization which demonstrated high-grade disease noted in the proximal and mid left anterior descending artery for which she underwent angioplasty and stenting. The circumflex artery had a side branch which had some stenosis in the right coronary artery was free of significant disease. On presentation her electrocardiogram demonstrated normal sinus rhythm with nonspecific ST-T wave abnormalities present. [facility] Medical History Acquired varus deformity of left foot Acquired varus deformity of right foot Acute lumbar radiculopathy Acute on chronic anemia Adult failure to thrive Amputation foot, bilat Anemia due to chronic illness Anemia in chronic illness Anxiety and depression Atherosclerosis of [place] coronary artery of [place] heart without angina pectoris Back pain, chronic Bilateral edema of lower extremity Cellulitis Cellulitis of both lower extremities Charcot's joint of right foot Charcot's joint, left ankle and foot Charcot's joint, right ankle and foot Chronic foot pain Chronic kidney disease, stage 3b Chronic kidney disease, stage 4 (severe) Chronic renal disease, stage 4, severely decreased glomerular filtration rate (GFR) between 15-29 mL/min/1.73 square meter Chronic renal insufficiency Chronic ulcer of left foot with fat layer exposed 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 Chronic ulcer of right foot with fat layer exposed Chronic ulcer of right foot with necrosis of bone Chronic ulcer of right foot with necrosis of muscle Chronic ulcer of right leg with fat layer exposed COVID-19 (08/28/21) CRF (chronic renal failure) Debility Delayed wound healing Diabetes Diabetes mellitus with diabetic polyneuropathy Diabetic foot ulcer associated with type 2 diabetes mellitus Diabetic foot ulcers Diabetic infection of left foot Diabetic polyneuropathy Diabetic ulcer of right ankle Elevated troponin Essential (primary) hypertension Essential hypertension Foot osteomyelitis, left GERD (gastroesophageal reflux disease) Hemoglobin A1c greater than 9.0% HLD (hyperlipidemia) Hyperparathyroidism, secondary renal Hypertension Iron deficiency anemia Ischemic cardiomyopathy Myocardial infarct Non-compliance Non-pressure chronic ulcer of other part of left foot with fat layer exposed Non-pressure chronic 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 layer exposed Non-smoker Normocytic anemia NSTEMI (non-ST elevated myocardial infarction) (09/20/18) Obesity (BMI 30.0-34.9) Osteomyelitis of left foot Osteomyelitis of metatarsal RLS (restless legs syndrome) Stage 4 chronic kidney disease TIA (transient ischemic attack) Type 2 diabetes mellitus 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 Ulcer of left foot with fat layer exposed Ulcer of left foot with muscle involvement without evidence of necrosis Ulcer of left foot with necrosis of muscle Ulcer of right lower extremity with fat layer exposed Home Medications atorvastatin 80 mg tablet 80 mg PO QHS cholesterol #90 tabs 11/30/19 [Rx Last Taken 04/07/22] isosorbide mononitrate 30 mg tablet,extended release 24 hr 20 mg PO TID BP 03/03/21 [History Last Taken 04/07/22] paroxetine HCl 20 mg tablet 20 mg PO DAILY DEPRESSION 07/07/21 [History Last Taken 04/07/22] gabapentin 300 mg capsule 100 mg TID nerve pain 12/23/21 [History Last Taken 04/07/22] bupropion HCl 150 mg 24 hr tablet, extended release 150 mg PO DAILY mood 02/04 [History Last Taken 04/07/22] carvedilol 12.5 mg tablet 12.5 mg PO BID heart 02/04/22 [History Last Taken 04/07/22] hydroxyzine HCl 25 mg tablet 25 mg PO TID PRN Anxiety 02/04/22 [History Last Last en 04/07/22] guaifenesin 600 mg tablet, extended release 12 hr 400 mg PO BID congestion 04/09/22 [History Last Taken 04/07/22] melatonin 5 mg tablet 5 mg PO QHS sleep 04/09/22 [History Last Taken 04/07/22] pramipexole 1.5 mg tablet 1.5 mg PO BID rls 04/09/22 [History Last Taken 04/07/22] albuterol sulfate 2.5 mg/3 mL (0.083 %) solution for nebulization 2.5 mg (3 mL) inhalation Q2H PRN PRN Dyspnea, wheezing #0 mL 04/24/22 [Rx Last Taken Unknown] sennosides 8.6 mg-docusate sodium 50 mg tablet (Stool Softener-Stimulant Laxative) 2 tab PO BID PRN PRN Constipation #0 tabs 04/24/22 [Rx Last Taken Un known] acetaminophen 325 mg tablet (Tylenol) 650 mg PO Q4H PRN PRN pain or temperature 05/05/22 [History Last Taken Unknown] ascorbic acid (vitamin C) 500 mg tablet (Vitamin C) 500 mg PO BID supplement 05/05/22 [History Last Taken Unknown] arginine 7 gram-glutam 7 gram-CaHMB 1.5 [id number]-min oral pwd pkt (Ted (with collagen)) 1 packet PO BIDCM wound healing 07/19/22 [History Last Taken Unknown] bumetanide 0.5 mg tablet 0.5 mg PO BID water pill 07/19/22 [History Last Taken Unknown] bumetanide 1 mg tablet 1 mg PO BID water pill 07/19/22 [History Last Taken Unknown] clopidogrel 75 mg tablet 75 mg PO DAILY prevent stroke 07/19/22 [History Last Taken Unknown] cyclobenzaprine 5 mg tablet 5 mg PO 3XD pain 07/19/22 [History Last Taken Unknown] ferrous sulfate 325 mg (65 mg iron) tablet 325 mg PO DAILY anemia 07/19/22 [History Last Taken Unknown] folic acid 400 mcg tablet 400 mcg PO DAILY supplement 07/19/22 [History Last Taken Unknown] furosemide 40 mg tablet 40 mg PO BID diuretic 07/19/22 [History Last Taken Unknown] hydralazine 50 mg tablet 50 mg TID blood pressure 07/19/22 [History Last Taken Unknown] insulin glargine-yfgn 100 unit/mL (3 mL) subcutaneous pen 10 unit subcut QHS bl ood sugar 07/19/22 [History Last Taken Unknown] insulin lispro 100 unit/mL subcutaneous pen (Humalog KwikPen (U-100) Insulin) See Protocol subcut ACHS blood sugar 07/19/22 [History Last Taken Unknown] menthol 0.44 %-zinc oxide 20.6 % topical ointment (Calmoseptine) 1 applic topical TID impaired skin integrity 07/19/22 [History Last Taken Unknown] multivit,stress formula-zinc 1 tab PO DAILY supplement 07/19/22 [History Last Taken Unknown] nystatin 100,000 unit/gram topical powder (Nyamyc) 1 applic topical BID redness 07/19/22 [History Last Taken Unknown] pantoprazole 40 mg tablet,delayed release 40 mg PO BIDCM GERD 07/19/22 [History Last Taken Unknown] potassium chloride 20 mEq tablet,extended release 20 meq PO DAILY supplement 07/19/22 [History Last Taken Unknown] sodium bicarbonate 650 mg tablet 650 mg PO TID replacement 07/19/22 [History Last Taken Unknown] Allergy/AdvReac Type Severity Reaction Status Date / Time Penicillins Allergy swelling Verified 05/05/22 10:13 in throat vancomycin Allergy Itching Verified 05/05/22 10:13 metronidazole AdvReac Nausea Verified 05/05/22 10:13 oxycodone [From OxyContin] AdvReac Shortness Verified 05/05/22 10:13 of breath Family History Mother Diabetes CVA (cerebral vascular accident) Brother CAD (coronary artery disease) CABG X 3 Cancer testicular Diabetes Brother CAD (coronary artery disease) CABG X3 Diabetes Brother CAD (coronary artery disease) Stents Diabetes Sister CAD (coronary artery disease) CABG x 3 CVA (cerebral vascular accident) Diabetes Surgical History History of bilateral carpal tunnel release History of History of coronary artery stent placement (12/31/20) History of foot surgery History of rotator cuff surgery Social History household members: none number of children: 2 current occupational status: disabled Smoking Status: Never smoker alcohol intake: never substance use type: does not use caffeine: Yes Type: carbonated beverages Number of servings: 2 ROS Review of Systems ROS Unobtainable: due to encephalopathy Constitutional Constitutional: Denies fever(s) or weight loss Eyes Eyes: Reports systems reviewed and no addt'l complaints, except as documented ENT HEENT: Reports systems reviewed and no addt'l complaints, except as documented Cardiovascular Cardiovascular: Denies chest pain at rest, chest pain with activity, dyspnea at rest, dyspnea on exertion, edema, palpitations or paroxysmal nocturnal dyspnea Respiratory/Chest Respiratory/Chest: Denies dyspnea on exertion, productive cough, shortness of breath at rest or shortness of breath with exertion Gastrointestinal Gastrointestinal: Denies change in bowel habits, nausea, vomiting or weight changes Genitourinary Genitourinary: Denies difficulty urinating Musculoskeletal Musculoskeletal: Denies joint stiffness or muscle weakness Integumentary Integumentary: Denies lesions Neurologic Neurologic: Denies dizziness or syncope Psychiatric Psychiatric: Denies anxiety Endocrine Endocrinology: Denies excessive sweating or fatigue Hematologic/Lymphatic Hematologic/Lymphatic: Denies anemia Allergic/Immunologic Allergic/Immunologic: Denies seasonal rhinorrhea Physical Exam Const alert, oriented x3 and no apparent distress General Appearance: cooperative HEENT hearing grossly normal bilaterally Head and Scalp: atraumatic Eyes EOMs intact bilaterally Neck General: normal visual inspection Chest inspection of chest normal and palpation of chest normal Resp normal respiratory effort Auscultation: clear to auscultation bilaterally Cardio regular rate, regular rhythm, S1 normal heart sound and S2 normal heart sound Jugular Venous Distention: JVD GI normal to inspection, nondistended, normoactive bowel sounds Extremity normal capillary refill and no pedal edema Peripheral Pulses: Yes pulses 2+ throughout and femoral pulses present Skin no rashes or lesions noted Neuro oriented x3 and CN's II-XII intact bilaterally Psych Appearance: grossly normal and appropriate Risk Stratification Risk Stratification Applicable: No Objective Data Vital Signs: Vital Signs Temp Pulse Resp BP Pulse Ox O2 Del Method O2 Flow Rate 97.4 F L 77 18 147/85 H 99 Nasal Cannula 3 07/20/22 03:49 07/20/22 03:49 07/20/22 03:49 07/20/22 03:49 07/20/22 03:49 07/20/22 03:49 07/20/22 03:49 Oxygen Flow Rate (L/min) 3 Oxygen Delivery Method Nasal Cannula Weight: 163 lb 2.273 oz Body Mass Index (BMI) 26.3 Intake & Output: Intake and Output for Last 24 Hours 07/18/22 07/19/22 07/20/22 23:59 23:59 23:59 Intake Total 240 / 240 192.23 / 192.23 Balance 240 / 240 192.23 / 192.23 Lab / Micro Data Result Diagrams: 07/20/22 08:04 07/20/22 08:04 Labs: Laboratory Results - last 24 hr 07/19/22 17:10: Troponin I High Sens 824 H* 07/19/22 17:10: WBC 18.3 H, RBC 2.72 L, Hgb 7.8 L, Hct 26.3 L, MCV 96.7, MCH 28.7, MCHC 29.7 L, RDW Std Deviation 52.7 H, RDW Coeff of Fior 15.0 H, Plt Count 203, MPV 10.4, Immature Gran % (Auto) 1.300 H, Neut % (Auto) 89.6 H, Lymph % (Auto) 3.2 L, [place] % (Auto) 5.3, Eos % (Auto) 0.4, Baso % (Auto) 0.2, Absolute Neuts (auto) 16.4 H, Absolute Lymphs (auto) 0.58 L, Nucleated RBC % 0, Differential Comment SCANNED 07/19/22 17:10: PT 20.2 H, INR 1.8, APTT 40.2 H 07/19/22 17:53: POC Glucose 88 07/19/22 19:20: Troponin I High Sens 808 H* 07/19/22 22:17: POC Glucose 104 07/19/22 23:35: Troponin I High Sens 699 H* 07/19/22 23:35: APTT > 200.0 H* 07/20/22 06:07: POC Glucose 76 Cardiology Labs/Tests 07/19/22 17:10: WBC 18.3 H, RBC 2.72 L, Hgb 7.8 L, Hct 26.3 L, MCV 96.7, MCH 28.7, MCHC 29.7 L, Plt Count 203, MPV 10.4, Immature Gran % (Auto) 1.300 H, Neut % (Auto) 89.6 H, Lymph % (Auto) 3.2 L, [place] % (Auto) 5.3, Eos % (Auto) 0.4, Baso % (Auto) 0.2, Absolute Neuts (auto) 16.4 H, Nucleated RBC % 0 07/19/22 17:10: PT 20.2 H, INR 1.8, APTT 40.2 H 07/19/22 23:35: APTT > 200.0 H* Rhythm: EKG: ECHO: Stress Test: Cardiac Cath: PCI: CT Surgery: Holter monitor: EPS: PPM: CXR: Chest CT Scan: Radiography Diagnostic Testing: Radiology Impression Brain CT 07/19/22 16:27 IMPRESSION: No change compared with prior comparison exams with chronic small vessel ischemic changes noted. Electronically Signed: Kayden Duncan DO at 17:37 EDT ,
[2022-07-20] MEDS: Aspirin E.C. 81 MG Tablet PO (08:04)
[2022-07-20] MEDS: 0.9% Normal Saline 1,000 ML 15 ML IV (08:09)
[2022-07-20] MEDS: Nystatin Powder 15gm Bottle 1 APPLIC TOPICAL ×2 (08:11→22:53)
[2022-07-20] MEDS: Menthol/Lanolin/Calamine/Znox 113 GM Tube 1 APPLIC TOPICAL ×2 (08:12→22:53)
[2022-07-20 08:15] LABS: Absolute Lymphocyte Count 0.73 X10^3/uL (0.83-4.51); Absolute Neutrophil Count 12.1 X10^3/uL (2.0-7.7); Basophil# 0.06 X10^3/uL; Basophil% 0.4 % (0-1); Eosinophil# 0.16 X10^3/uL; Eosinophils% 1.1 % (0-5); Hematocrit 26.4 % (37-47); Hemoglobin 8.1 g/dL (12.0-15.0); Lymphocyte # 0.73 X10^3/ul (0.83-4.51); Lymphocyte % 5.2 % (19-41); Mean Corp Hgb Conc 30.7 g/dL (32-36); Mean Corpuscular Hgb 29.7 pg (27.0-32.0); Mean Corpuscular Volume 96.7 fL (81-99); Mean Platelet Vol. 10.4 fl (6.2-12.0); Monocyte# 0.91 X10^3/uL; Monocyte% 6.5 % (0-10); NRBC Flagged by Analyzer 0 % (0-5); Neutrophil % 86.2 % (47-70); Platelet Count 191 K/mm3 (150-450); RBC Distribution Width CV 15.1 % (11.6-14.6); Red Blood Count 2.73 M/mm3 (4.2-5.4)
[2022-07-20 08:33] LABS: Partial Thromboplast Time 45.8 Seconds (24.1-36.2)
[2022-07-20 08:44] LABS: ALB/GLOB Ratio 0.3 RATIO (0.9-2.4); AST(SGOT) 46 U/L (15-37); Alanine Aminotransfer ALT/SGPT 25 U/L (13-56); Albumin, Serum 1.5 g/dL (3.2-5.0); Alkaline Phosphatase 206 U/L (45-117); Anion Gap 5 (5-15); BUN 28 mg/dL (7-18); BUN/Creat Ratio 6.6 RATIO (10-20); Bilirubin, Direct 0.18 mg/dL (0.00-0.30); Chloride 105 mmol/L (98-107); Creatinine, Serum 4.27 mg/dL (0.55-1.02); EST Glomerular Filtration Rate 11 mL/min (>60); Est Glom Filt Rate - Afr Amer 14 mL/min (>60); Estimated Creatinine Clearance 13.61 ml/min; Globulin 5.1 g/dL (2.2-4.2); Glucose 94 mg/dL (74-106); Potassium 3.8 mmol/L (3.5-5.1); Protein, Total 6.6 g/dL (6.4-8.2); Sodium Level 142 mmol/L (136-145)
--- NOTE | 2022-07-20 09:04 | CL.D_ITS ---
Patient Name: DIONY ROCHA Study Date: 07/20/2022 Performing: Saravanan Jean Baptiste MD Ht: 66 inches 167.64 cm : 1965 Wt: 163.14 lbs 74 kg Age: 57 Gender: female BSA: 1.83 PROCEDURE(S) PERFORMED [id number]-([id number])[facility] CLINICAL PROFILE AND INDICATIONS Indications: Suspected CAD Heart Failure: None Stress/Imaging Stress/Image Study Performed: No CONCLUSIONS Previously placed stent in the LAD is patent. Disease in the circumflex artery is unchanged. Right coronary artery with no significant stenosis. RECOMMENDATIONS Medical therapy DESCRIPTION OF PROCEDURE The patient arrived to the procedure lab. The risks and benefits of the procedure as well as a full description of our services here and current unavailability of surgical backup were fully explained to the patient and/or their significant other prior to the catheterization. The Timeout was completed, verifying the correct patient and procedure. The patient's procedural site was prepped and draped in the usual fashion. Local anesthetic was given subcutaneously to right radial region with Lidocaine 2%. Local anesthetic was given subcutaneously to right groin region with Lidocaine 2%. Using a modified Seldinger technique, arterial access was obtained via the right radial artery, a 6Fr sheath was inserted., arterial access was obtained via the right femoral artery, a 5Fr sheath was inserted. Left Coronary Artery selective angiography was performed in multiple views using a 5 Fr. JL4 catheter. Right Coronary Artery selective angiography was then performed in multiple views using a 5 Fr. 3DRC (Timmy) catheter.The radial arterial sheath was pulled and a TR Band was applied for hemostasis. The femoral arterial sheath was pulled and manual compression applied until hemostasis is achieved. CORONARY ANGIOGRAPHY DOMINANCE: Right Dominant LEFT HEART ASSESSMENT Left Ventricular Ejection Fraction: by Echo 55 % Normal LV wall motion LEFT MAIN: Angiographically normal LEFT ANTERIOR DESCENDING ARTERY: PROX LAD: Previously placed stent is patent MID LAD: Previously placed stent is patent DISTAL LAD: Previously placed stent is patent CIRCUMFLEX ARTERY: No significant disease noted MID CIRC: Bifurcating OM and main circwith ostial 70% unchanged from before CIRCUMFLEX: Mid Circ: Bifurcating OM and main circwith ostial 70% unchanged from before RIGHT CORONARY ARTERY: No significant disease noted COMPLICATIONS No Complications PROCEDURE MEDICATIONS Versed 1 mg IV Fentanyl 50 mcg IV Oxygen: 2 L/min via nasal cannula SUMMARY OF HEMODYNAMIC DATA Time AIR REST ECG 08:27:15 AO 134/65 (96) SA 08:52:51 Signed By Saravanan Jean Baptiste MD On 07/20/2022 09:04:00 Saravanan Jean Baptiste MD
--- NOTE | 2022-07-20 09:28 | PCM.PN.HOSP ---
Subjective Subjective Follow-up for altered mental status, high troponin, ESRD on dialysis Objective Data Objective Data Vital Signs: Vital Signs Temp Pulse Resp BP Pulse Ox O2 Del Method O2 Flow Rate 97.4 F L 77 18 147/85 H 99 Nasal Cannula 3 07/20/22 03:49 07/20/22 03:49 07/20/22 03:49 07/20/22 03:49 07/20/22 03:49 07/20/22 03:49 07/20/22 03:49 Oxygen Flow Rate (L/min) 3 Oxygen Delivery Method Nasal Cannula Weight: 163 lb 2.273 oz Body Mass Index (BMI) 26.3 Intake & Output: Intake and Output for Last 24 Hours 07/18/22 07/19/22 07/20/22 23:59 23:59 23:59 Intake Total 240 / 240 192.23 / 192.23 Balance 240 / 240 192.23 / 192.23 Lab / Micro Data Result Diagrams: 07/20/22 08:04 07/20/22 08:04 Labs: Laboratory Results - last 24 hr 07/19/22 17:10: Troponin I High Sens 824 H* 07/19/22 17:10: WBC 18.3 H, RBC 2.72 L, Hgb 7.8 L, Hct 26.3 L, MCV 96.7, MCH 28.7, MCHC 29.7 L, RDW Std Deviation 52.7 H, RDW Coeff of Fior 15.0 H, Plt Count 203, MPV 10.4, Immature Gran % (Auto) 1.300 H, Neut % (Auto) 89.6 H, Lymph % (Auto) 3.2 L, [place] % (Auto) 5.3, Eos % (Auto) 0.4, Baso % (Auto) 0.2, Absolute Neuts (auto) 16.4 H, Absolute Lymphs (auto) 0.58 L, Nucleated RBC % 0, Differential Comment SCANNED 07/19/22 17:10: PT 20.2 H, INR 1.8, APTT 40.2 H 07/19/22 17:53: POC Glucose 88 07/19/22 19:20: Troponin I High Sens 808 H* 07/19/22 22:17: POC Glucose 104 07/19/22 23:35: Troponin I High Sens 699 H* 07/19/22 23:35: APTT > 200.0 H* 07/20/22 06:07: POC Glucose 76 07/20/22 08:04: WBC 14.0 H, RBC 2.73 L, Hgb 8.1 L, Hct 26.4 L, MCV 96.7, MCH 29.7, MCHC 30.7 L, RDW Std Deviation 53.0 H, RDW Coeff of Fior 15.1 H, Plt Count 191, MPV 10.4, Immature Gran % (Auto) 0.600, Neut % (Auto) 86.2 H, Lymph % (Auto) 5.2 L, Bureau % (Auto) 6.5, Eos % (Auto) 1.1, Baso % (Auto) 0.4, Absolute Neuts (auto) 12.1 H, Absolute Lymphs (auto) 0.73 L, Nucleated RBC % 0 07/20/22 08:04: Sodium 142, Potassium 3.8, Chloride 105, Carbon Dioxide 32.0, Anion Gap 5, BUN 28 H, Creatinine 4.27 H, Estim Creat Clear Calc 13.61, Est GFR (MDRD) Af Amer 14 L, Est GFR (MDRD) Non-Af 11 L, BUN/Creatinine Ratio 6.6 L, Glucose 94, Calcium 8.0 L, Total Bilirubin 0.40, Direct Bilirubin 0.18, AST 46 H, ALT 25, Alkaline Phosphatase 206 H, Total Protein 6.6, Albumin 1.5 L, Globulin 5.1 H, Albumin/Globulin Ratio 0.3 L, TSH 2.30 07/20/22 08:04: APTT 45.8 H Radiography Diagnostic Testing: Radiology Impression Brain CT 07/19/22 16:27 IMPRESSION: No change compared with prior comparison exams with chronic small vessel ischemic changes noted. Electronically Signed: Kayden Duncan DO at 17:37 EDT , Physical Exam Narrative Patient returned from cardiac cath. Previous stents are patent . Discussed with insulator technician. Physical exam General: Lethargic, mildly sedated after Versed HEENT: Atraumatic, PERRLA, EOMI, Normocephalic Oral: Oral mucosa dry. No Gingival or Mucosal Lesions/ Ulcerations Neck: Supple, No JVD, Negative Carotid Bruits Lungs: Air entry diminished in bilateral lung bases. No crepitation/rhonchi Cardiovascular: Regular rate, Regular Rhythm, Normal S1, Normal S2, No murmurs Abdomen: Bowel Sounds Present, Soft, Non Tender, Non-Distended : No renal angle tenderness. No suprapubic tenderness. Extremities: No edema, Capillary Refill Less than 3 Seconds Skin: Right femoral artery access site, no hematoma/bruits. Right radial artery access attempted but not successful. Musculoskeletal: ROM restricted at left hip and knee joint. Right LE not evaluated because of restriction after cath Neurological: Cranial nerves II-XII grossly intact, DTR 2+/4 Psych/Mental Status: Sedated. Assessment & Plan Assessment/Plan (1) Encephalopathy acute: PLAN: Acute encephalopathy due to multiple medications/polypharmacy. Patient was last admitted with similar diagnosis and was recommended to decrease cyclobenzaprine and gabapentin for pain. Patient was recently started back on narcotics which was discontinued along with hydroxyzine and Mirapex. Check head CT throughout any other acute process. 07/20: Patient acute mental status much improved as per ER physician in [place] and then admitting hospitalist. Patient was mildly sedated and lethargy after Versed. No focal abnormal neurologic finding on exam. Blood sugar was 94. Not in hypoglycemic range. Patient had hypoglycemia in the past 61 in April 2022 (2) Acute respiratory failure with hypoxia: PLAN: Pulse ox was reported at 60% in [place] ED. Currently stable on nasal cannula. Chest x-ray no acute abnormality. Patient did receive antibiotics at the outside hospital. We will hold off any additional antibiotics at this time. (3) Non-STEMI (non-ST elevated myocardial infarction): PLAN: Likely a type II event given the patient's hypoxia encephalopathy. Last echo EF 55%, LV systolic function normal, mild concentric LVH. Mild to moderate TR, trivial MR with evidence of diastolic suggestive of mild HFpEF Serial troponin shows high Cloud Automation Tester was consulted. Normal LV motion, EF 55%. Previously placed stent in LAD patent. Circumflex no significant disease noted and unchanged from previous study. (4) End stage renal disease: PLAN: Recently started on hemodialysis. Dip Tube Assembler Machine consulted. Patient supposed to be dialyzed. Had completed daptomycin and ertapenem for osteomyelitis in foot. Wound on her foot appears well at this time. VTE prophylaxis: Anticoagulation CODE STATUS: Cannot adequately assess the with the patient at this time. Therefore patient will be full code unverified. Total time of the visit including total time spent in counseling or coordination of care, (more than 50% of the total time, spent in obtaining medical information from nurses and other ancillary care providers,explaining to the patient about labs, imaging, diagnosis and management of active complex medical conditions), discussion with insulator technician and torts law professor, review of labs and imaging is 40 minutes. Charges/Coding Visit Charges Inpatient E&M: 98076 Subs Hosp L3
[2022-07-20] MEDS: FLU VACC QS2022-23(6MOS UP)/PF 60 MCG/0.5 ML SYRINGE IM (10:01)
--- NOTE | 2022-07-20 11:11 | CASEMGMT ---
Discharge Can Worker Yaneli lucas product development assistant sent updates to Td [place] Plan: Td Hammond Discharge Can Worker
[2022-07-20 12:05] LABS: Bedside Glucose 79 mg/dL (74-106)
--- NOTE | 2022-07-20 12:52 | PCM.CONS.R ---
Assessment & Plan Assessment/Plan (1) Acute respiratory failure with hypoxia: (2) Hypoglycemia: (3) Non-STEMI (non-ST elevated myocardial infarction): (4) Encephalopathy acute: (5) End stage renal disease: PLAN: Plan Patient was admitted to the hospital for evaluation of confusion, hypoglycemia and possible pneumonia. We were consulted for dialysis needs. Apparently patient currently dialyzes at [facility]. Kidney center not open today to contact for information. Patient was evaluated by cardiology for non-STEMI, she underwent heart catheterization today. Patient will dialyze today over 3.5 hours and attempt 1 to 2 L fluid removal as patient and bp tolerates. Patient appears near euvolemic on exam. Likely plan for dialysis tomorrow to regularize outpatient HD schedule. Patient had brain CT which did not show any acute process. Blood sugars have improved, she is off gabapentin. Apparently patient was recently started on Wildrose, this was discontinued as well as Mirapex, cyclobenzaprine and tramadol. Patient has a history of anemia of chronic disease, hemoglobin is 8.1. Will arrange for JORGE with dialysis tomorrow. Further orders forthcoming as hospitalization evolves. Thank you for allowing us to participate in the care of Ms. Carrillo. HPI Consult Data Date of Consult: 07/20/22 HPI Narrative HPI Narrative: DIONY CARRILLO, is a 57 F who presented to the emergency room for evaluation of altered mental status. Patient was found to have a glucose of 64. She was also noted to be hypoxic with pulse ox in the 60% range. She was placed on supplemental oxygen and improved. COVID was negative. Concern for pneumonia therefore she was admitted to the hospital for further evaluation and treatment. We were consulted for dialysis needs. Patient is known to our group from hospital consultation. She has never been seen in office setting. Patient has history of diabetic kidney disease. Patient is poor historian and having difficult time recalling recent events. Apparently she was started on hemodialysis via a tunneled hemodialysis catheter when admitted to [facility] [place]. She was seen by renal consultants when at [facility]. At time of discharge arrangements were made for her to dialyze at [facility] Tuesday in [place]. [facility] Medical History Acquired varus deformity of left foot Acquired varus deformity of right foot Acute lumbar radiculopathy Acute on chronic anemia Adult failure to thrive Amputation foot, bilat Anemia due to chronic illness Anemia in chronic illness Anxiety and depression Atherosclerosis of ione coronary artery of ione heart without angina pectoris Back pain, chronic Bilateral edema of lower extremity Cellulitis Cellulitis of both lower extremities Charcot's joint of right foot Charcot's joint, left ankle and foot Charcot's joint, right ankle and foot Chronic foot pain Chronic kidney disease, stage 3b Chronic kidney disease, stage 4 (severe) Chronic renal disease, stage 4, severely decreased glomerular filtration rate (GFR) between 15-29 mL/min/1.73 square meter Chronic renal insufficiency Chronic ulcer of left foot with fat layer exposed 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 Chronic ulcer of right foot with fat layer exposed Chronic ulcer of right foot with necrosis of bone Chronic ulcer of right foot with necrosis of muscle Chronic ulcer of right leg with fat layer exposed COVID-19 (08/28/21) CRF (chronic renal failure) Debility Delayed wound healing Diabetes Diabetes mellitus with diabetic polyneuropathy Diabetic foot ulcer associated with type 2 diabetes mellitus Diabetic foot ulcers Diabetic infection of left foot Diabetic polyneuropathy Diabetic ulcer of right ankle Elevated troponin Essential (primary) hypertension Essential hypertension Foot osteomyelitis, left GERD (gastroesophageal reflux disease) Hemoglobin A1c greater than 9.0% HLD (hyperlipidemia) Hyperparathyroidism, secondary renal Hypertension Iron deficiency anemia Ischemic cardiomyopathy Myocardial infarct Non-compliance Non-pressure chronic ulcer of other part of left foot with fat layer exposed Non-pressure chronic 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 layer exposed Non-smoker Normocytic anemia NSTEMI (non-ST elevated myocardial infarction) (09/20/18) Obesity (BMI 30.0-34.9) Osteomyelitis of left foot Osteomyelitis of metatarsal RLS (restless legs syndrome) Stage 4 chronic kidney disease TIA (transient ischemic attack) Type 2 diabetes mellitus 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 Ulcer of left foot with fat layer exposed Ulcer of left foot with muscle involvement without evidence of necrosis Ulcer of left foot with necrosis of muscle Ulcer of right lower extremity with fat layer exposed Home Medications atorvastatin 80 mg tablet 80 mg PO QHS cholesterol #90 tabs 02/21/20 [Rx Last Taken 04/07/22] isosorbide mononitrate 30 mg tablet,extended release 24 hr 20 mg PO TID BP 03/03/21 [History Last Taken 04/07/22] paroxetine HCl 20 mg tablet 20 mg PO DAILY DEPRESSION 07/07/21 [History Last Taken 04/07/22] gabapentin 300 mg capsule 100 mg TID nerve pain 12/23/21 [History Last Taken 04/07/22] bupropion HCl 150 mg 24 hr tablet, extended release 150 mg PO DAILY mood 02/04/22 [History Last Taken 04/07/22] carvedilol 12.5 mg tablet 12.5 mg PO BID heart 02/04/22 [History Last Taken 04/07/22] hydroxyzine HCl 25 mg tablet 25 mg PO TID PRN Anxiety 02/04/22 [History Last Taken 04/07/22] guaifenesin 600 mg tablet, extended release 12 hr 400 mg PO BID congestion 04/09/22 [History Last Taken 04/07/22] melatonin 5 mg tablet 5 mg PO QHS sleep 04/09/22 [History Last Taken 04/07/22] pramipexole 1.5 mg tablet 1.5 mg PO BID rls 04/09/22 [History Last Taken 04/07/22] albuterol sulfate 2.5 mg/3 mL (0.083 %) solution for nebulization 2.5 mg (3 mL) inhalation Q2H PRN PRN Dyspnea, wheezing #0 mL 04/24/22 [Rx Last Taken Unknown] sennosides 8.6 mg-docusate sodium 50 mg tablet (Stool Softener-Stimulant Laxative) 2 tab PO BID PRN PRN Constipation #0 tabs 04/24/22 [Rx Last Taken Unknown] acetaminophen 325 mg tablet (Tylenol) 650 mg PO Q4H PRN PRN pain or temperature 05/05/22 [History Last Taken Unknown] ascorbic acid (vitamin C) 500 mg tablet (Vitamin C) 500 mg PO BID supplement 05/05/22 [History Last Taken Unknown] arginine 7 gram-glutam 7 gram-CaHMB 1.5 [id number]-min oral pwd pkt (Ted (with collagen)) 1 packet PO BIDCM wound healing 07/19/22 [History Last Taken Unknown] bumetanide 0.5 mg tablet 0.5 mg PO BID water pill 07/19/22 [History Last Taken Unknown] bumetanide 1 mg tablet 1 mg PO BID water pill 07/19/22 [History Last Taken Unknown] clopidogrel 75 mg tablet 75 mg PO DAILY prevent stroke 07/19/22 [History Last Taken Unknown] cyclobenzaprine 5 mg tablet 5 mg PO 3XD pain 07/19/22 [History Last Taken Unknown] ferrous sulfate 325 mg (65 mg iron) tablet 325 mg PO DAILY anemia 07/19/22 [History Last Taken Unknown] folic acid 400 mcg tablet 400 mcg PO DAILY supplement 07/19/22 [History Last Taken Unknown] furosemide 40 mg tablet 40 mg PO BID diuretic 07/19/22 [History Last Taken Unknown] hydralazine 50 mg tablet 50 mg TID blood pressure 07/19/22 [History Last Taken Unknown] insulin glargine-yfgn 100 unit/mL (3 mL) subcutaneous pen 10 unit subcut QHS blood sugar 07/19/22 [History Last Taken Unknown] insulin lispro 100 unit/mL subcutaneous pen (Humalog KwikPen (U-100) Insulin) See Protocol subcut ACHS blood sugar 07/19/22 [History Last Taken Unknown] menthol 0.44 %-zinc oxide 20.6 % topical ointment (Calmoseptine) 1 applic topical TID impaired skin integrity 07/19/22 [History Last Taken Unknown] multivit,stress formula-zinc 1 tab PO DAILY supplement 07/19/22 [History Last Taken Unknown] nystatin 100,000 unit/gram topical powder (Nyamyc) 1 applic topical BID redness 07/19/22 [History Last Taken Unknown] pantoprazole 40 mg tablet,delayed release 40 mg PO BIDCM GERD 07/19/22 [History Last Taken Unknown] potassium chloride 20 mEq tablet,extended release 20 meq PO DAILY supplement 07/19/22 [History Last Taken Unknown] sodium bicarbonate 650 mg tablet 650 mg PO TID replacement 07/19/22 [History Last Taken Unknown] Allergy/AdvReac Type Severity Reaction Status Date / Time Penicillins Allergy swelling Verified 05/05/22 10:13 in throat vancomycin Allergy Itching Verified 05/05/22 10:13 metronidazole AdvReac Nausea Verified 05/05/22 10:13 oxycodone [From OxyContin] AdvReac Shortness Verified 05/05/22 10:13 of breath Family History Mother Diabetes CVA (cerebral vascular accident) Brother CAD (coronary artery disease) CABG X 3 Cancer testicular Diabetes Brother CAD (coronary artery disease) CABG X3 Diabetes Brother CAD (coronary artery disease) Stents Diabetes Sister CAD (coronary artery disease) CABG x 3 CVA (cerebral vascular accident) Diabetes Surgical History History of bilateral carpal tunnel release History of History of coronary artery stent placement (12/31/20) History of foot surgery History of rotator cuff surgery Social History household members: none number of children: 2 current occupational status: disabled Smoking Status: Never smoker alcohol intake: never substance use type: does not use caffeine: Yes Type: carbonated beverages Number of servings: 2 ROS ROS Narrative Unable to obtain, see past medical history and HPI Physical Exam Narrative Const: In no apparent distress, alert to name Cardio: S1, S2, RRR Respiratory: Lung sounds clear anteriorly and posteriorly, no wheezes rhonchi or rales noted Gastrointestinal: Abdomen soft, nontender, positive bowel sounds Extremities: No edema noted bilateral lower legs feet or arms Tunneled HD catheter right chest area dressing clean, dry and intact. Accessed for hemodialysis Lab / Micro Data Result Diagrams: 07/20/22 08:04 07/20/22 08:04 Labs: Laboratory Results - last 24 hr 07/19/22 17:10: Troponin I High Sens 824 H* 07/19/22 17:10: WBC 18.3 H, RBC 2.72 L, Hgb 7.8 L, Hct 26.3 L, MCV 96.7, MCH 28.7, MCHC 29.7 L, RDW Std Deviation 52.7 H, RDW Coeff of Fior 15.0 H, Plt Count 203, MPV 10.4, Immature Gran % (Auto) 1.300 H, Neut % (Auto) 89.6 H, Lymph % (Auto) 3.2 L, Benton % (Auto) 5.3, Eos % (Auto) 0.4, Baso % (Auto) 0.2, Absolute Neuts (auto) 16.4 H, Absolute Lymphs (auto) 0.58 L, Nucleated RBC % 0, Differential Comment SCANNED 07/19/22 17:10: PT 20.2 H, INR 1.8, APTT 40.2 H 07/19/22 17:53: POC Glucose 88 07/19/22 19:20: Troponin I High Sens 808 H* 07/19/22 22:17: POC Glucose 104 07/19/22 23:35: Troponin I High Sens 699 H* 07/19/22 23:35: APTT > 200.0 H* 07/20/22 06:07: POC Glucose 76 07/20/22 08:04: WBC 14.0 H, RBC 2.73 L, Hgb 8.1 L, Hct 26.4 L, MCV 96.7, MCH 29.7, MCHC 30.7 L, RDW Std Deviation 53.0 H, RDW Coeff of Fior 15.1 H, Plt Count 191, MPV 10.4, Immature Gran % (Auto) 0.600, Neut % (Auto) 86.2 H, Lymph % (Auto) 5.2 L, Benton % (Auto) 6.5, Eos % (Auto) 1.1, Baso % (Auto) 0.4, Absolute Neuts (auto) 12.1 H, Absolute Lymphs (auto) 0.73 L, Nucleated RBC % 0 07/20/22 08:04: Sodium 142, Potassium 3.8, Chloride 105, Carbon Dioxide 32.0, Anion Gap 5, BUN 28 H, Creatinine 4.27 H, Estim Creat Clear Calc 13.61, Est GFR (MDRD) Af Amer 14 L, Est GFR (MDRD) Non-Af 11 L, BUN/Creatinine Ratio 6.6 L, Glucose 94, Calcium 8.0 L, Total Bilirubin 0.40, Direct Bilirubin 0.18, AST 46 H, ALT 25, Alkaline Phosphatase 206 H, Total Protein 6.6, Albumin 1.5 L, Globulin 5.1 H, Albumin/Globulin Ratio 0.3 L, TSH 2.30 07/20/22 08:04: APTT 45.8 H 07/20/22 11:21: POC Glucose [address] 07/19/22 16:27 IMPRESSION: No change compared with prior comparison exams with chronic small vessel ischemic changes noted. Electronically Signed: Kayden Duncan DO at 17:37 EDT ,
[2022-07-20 13:22] LABS: Hepatitis B Surface Antigen Non-Reactive (Nonreactive)
--- NOTE | 2022-07-20 14:14 | CASEMGMT ---
[facility] is [facility]. SW met with patient. SW is familiar with patient from previous admissions. SW asked patient if her plan is to return to [facility] at discharge. Patient said that is her plan and she declined a list of nursing facilities. Plan: d/c back to [facility] under intermediate level of care. Kamilla Tinsley GETTERING FILAMENT MACHINE OPERATOR FLEX
[2022-07-20] MEDS: Acetaminophen 325 MG Tablet 650 MG PO (14:30)
--- NOTE | 2022-07-20 14:44 | DIALYSIS ---
Hemodialysis x3.5 hours completed at 1415 on a 3K bath, tolerated well, UF 2000mL, CritLine ended profile A, accessed via right chest tunneled dialysis catheter, worked well, next tx planned for tomorrow per MWF schedule
[2022-07-20] MEDS: Ensure Plus High Protein 120 ML LIQUID PO ×2 (16:28→22:43)
[2022-07-20 21:31] LABS: Bedside Glucose 91 mg/dL (74-106)
[2022-07-20] MEDS: Atorvastatin Calcium 80 MG Tablet PO (22:43)
[2022-07-20] MEDS: Sodium Bicarbonate 650 MG Tablet PO (22:44)
[2022-07-20] MEDS: MELATONIN 10 MG TABLET 5 MG PO (22:45)
[2022-07-20] MEDS: Carvedilol 12.5 MG Tablet PO (22:46)
[2022-07-20 23:35] LABS: Bedside Glucose 114 mg/dL (74-106)
[2022-07-21] VITALS (7 sets, daily range): BP systolic 134–151; BP diastolic 66–82; PULSE 67–84; RESP 16–18; TEMP 36.3–36.8; O2SAT 96–100
[2022-07-21] MEDS: Isosorbide DN 20 MG Tablet PO ×2 (00:56→05:46)
[2022-07-21] MEDS: Sodium Bicarbonate 650 MG Tablet PO (05:46)
[2022-07-21 06:48] LABS: Hematocrit 26.2 % (37-47); Hemoglobin 7.6 g/dL (12.0-15.0); Mean Corpuscular Hgb 28.5 pg (27.0-32.0); Mean Corpuscular Volume 98.1 fL (81-99); Mean Platelet Vol. 10.7 fl (6.2-12.0); Platelet Count 234 K/mm3 (150-450); RBC Distribution Width CV 14.8 % (11.6-14.6); RBC Distribution Width SD 52.6 fl (35.1-43.9); Red Blood Count 2.67 M/mm3 (4.2-5.4); White Blood Count 11.1 K/mm3 (4.4-11.0)
[2022-07-21 06:57] LABS: International Normalized Ratio 1.5; Prothrombin Time (Protime)PT. 17.3 SECONDS (11.7-14.9)
[2022-07-21 06:58] LABS: Partial Thromboplast Time 41.7 Seconds (24.1-36.2)
[2022-07-21 07:10] LABS: Bedside Glucose 97 mg/dL (74-106)
[2022-07-21 07:12] LABS: Anion Gap 4 (5-15); BUN 16 mg/dL (7-18); BUN/Creat Ratio 6.6 RATIO (10-20); Calcium,Total 7.8 mg/dL (8.5-10.1); Chloride 103 mmol/L (98-107); Creatinine, Serum 2.44 mg/dL (0.55-1.02); EST Glomerular Filtration Rate 22 mL/min (>60); Est Glom Filt Rate - Afr Amer 26 mL/min (>60); Estimated Creatinine Clearance 23.81 ml/min; Glucose 103 mg/dL (74-106); Potassium 3.5 mmol/L (3.5-5.1); Sodium Level 138 mmol/L (136-145)
--- NOTE | 2022-07-21 10:00 | PCM.TXEXTCAR ---
Diet Diet Order/Speech Therapy: 07/19/22 16:27 Diet: Cardiac: Calorie-Controlled Food consistency:: Regular Liquid Consistency:: Regular/Thin Is pt able to select menu?: No How many daily calories?: 1999 calorie Routine Orders/Code Status Suppository Type: Dulcolax 10mg Suppository Frequency: Daily PRN Wound(s) bottom of right foot: Wound Type: Neuropathic/Diabetic Foot Ulcer bottom of left foot: Wound Type: Neuropathic/Diabetic Foot Ulcer Right Radial: Wound Type: Surgical Incision Right groin: Wound Type: Surgical Incision Therapies Weight Bearing: Weight bearing as tolerated Extremity Affected:: Bilateral Lower Physical Therapy: Eval and Treat Occupational Therapy: Eval and Treat Speech Therapy: Eval and Treat Problem/Diagnosis (1) Encephalopathy acute: Status: Acute Code(s): G93.40 - Encephalopathy, unspecified Plan: Acute encephalopathy due to multiple medications/polypharmacy. Patient was last admitted with similar diagnosis and was recommended to decrease cyclobenzaprine and gabapentin for pain. Patient was recently started back on narcotics which was discontinued along with hydroxyzine and Mirapex. Check head CT throughout any other acute process. 07/20: Patient acute mental status much improved as per ER physician in [place] and then admitting hospitalist. Patient was mildly sedated and lethargy after Versed. No focal abnormal neurologic finding on exam. Blood sugar was 94. Not in hypoglycemic range. Patient had hypoglycemia in the past 61 in April 2022 (2) Acute respiratory failure with hypoxia: Status: Acute Code(s): J96.01 - Acute respiratory failure with hypoxia Plan: Pulse ox was reported at 60% in [place] ED. Currently stable on nasal cannula. Chest x-ray no acute abnormality. Patient did receive antibiotics at the outside hospital. We will hold off any additional antibiotics at this time. (3) Non-STEMI (non-ST elevated myocardial infarction): Status: Acute Code(s): I21.4 - Non-ST elevation (NSTEMI) myocardial infarction Plan: Likely a type II event given the patient's hypoxia encephalopathy. Last echo EF 55%, LV systolic function normal, mild concentric LVH. Mild to moderate TR, trivial MR with evidence of diastolic suggestive of mild HFpEF Serial troponin shows high Catering And Events Manager was consulted. Normal LV motion, EF 55%. Previously placed stent in LAD patent. Circumflex no significant disease noted and unchanged from previous study. (4) End stage renal disease: Status: Acute Code(s): N18.6 - End stage renal disease Plan: Recently started on hemodialysis. Director Of Archives consulted. Patient supposed to be dialyzed. Had completed daptomycin and ertapenem for osteomyelitis in foot. Wound on her foot appears well at this time. VTE prophylaxis: Anticoagulation CODE STATUS: Cannot adequately assess the with the patient at this time. Therefore patient will be full code unverified. Total time of the visit including total time spent in counseling or coordination of care, (more than 50% of the total time, spent in obtaining medical information from nurses and other ancillary care providers,explaining to the patient about labs, imaging, diagnosis and management of active complex medical conditions), discussion with contingents supervisor and box car loader, review of labs and imaging is 40 minutes. Allergies/Procedures Done in Hospital Allergies Penicillins Allergy (Verified 05/05/22 10:13) swelling in throat vancomycin Allergy (Verified 05/05/22 10:13) Itching metronidazole Adverse Reaction (Verified 05/05/22 10:13) Nausea oxycodone [From OxyContin] Adverse Reaction (Verified 05/05/22 10:13) Shortness of breath Type of Care/Length of Stay Estimated LOS: More Than 30 Days Type of Care Needed: Intermediate Rehab Potential: Fair Prognosis: Fair Additional Orders/Day of Discharge Day of Discharge: 07/21/22 Dietary and Speech Recommendations Dietitian Recommendations/Changes: continue cardiac, 2000 calorie controlled diet; will add ensure plus high protein 120mL 4x/day. Will monitor labs, PO intake and adjust diet as indicated. Daily wts. Discharge Plan Admission Admit Date/Time: 07/19/22 16:02 Primary Reason for Your Visit: Acute toxic encephalopathy, elevated troponin Attending Provider: Blas Vu Primary Care Provider: Tiffanie Gutierrez Consulting Providers: Alysha Cooper ; Saravanan Jean Baptiste ; Kali Prado Discharge Orders/Prescriptions Prescriptions: New isosorbide dinitrate 10 mg Tablet 10 mg PO TID Qty: 0 0RF insulin lispro [Humalog KwikPen Insulin] 100 unit/mL Insulin Pen See Protocol subcut TIDAC Qty: 0 0RF Protocol: 1. Sliding Scale Insulin Low Dosing Condition: 150-224 mg/dl = 1 unit Condition: 225-299 mg/dl = 2 units Condition: 300-374 mg/dl = 3 units Condition: 375-499 mg/dl = 4 units Condition: Greater than 449 call physician Protocol Text: - Use for Total Daily Dose of Insulin 15-27 units - Thin, elderly, renal patients LOW DOSING ALGORITHM Continued atorvastatin 80 mg tablet 80 mg PO QHS Qty: 90 3RF paroxetine HCl 20 mg tablet 20 mg PO DAILY Label Comments: TAKE 1 TABLET BY MOUTH EVERY DAY IN THE EVENING carvedilol 12.5 mg Tablet 12.5 mg PO BID bupropion HCl 150 mg tablet extended release 24 hr 150 mg PO DAILY Label Comments: TAKE 1 TABLET BY MOUTH EVERY DAY melatonin 5 mg Tablet 5 mg PO QHS albuterol sulfate 2.5 mg /3 mL (0.083 %) Solution For Nebulization 2.5 mg inhalation Q2H PRN PRN (Reason: Dyspnea, wheezing) Qty: 0 0RF sennosides-docusate sodium [Stool Softener-Stimulant Laxat] 8.6-50 mg Tablet 2 tab PO BID PRN PRN (Reason: Constipation) Qty: 0 0RF ascorbic acid (vitamin C) [Vitamin C] 500 mg Tablet 500 mg PO BID acetaminophen [Tylenol] 325 mg tablet 650 mg PO Q4H PRN PRN (Reason: pain or temperature) folic acid 400 mcg Tablet 400 mcg PO DAILY bumetanide 1 mg Tablet 1 mg PO BID hydralazine 50 mg Tablet 50 mg TID potassium chloride 20 mEq Tablet Extended Release 20 meq PO DAILY clopidogrel 75 mg tablet 75 mg PO DAILY pantoprazole 40 mg tablet,delayed release (DR/EC) 40 mg PO BIDCM ferrous sulfate 325 mg (65 mg iron) tablet 325 mg PO DAILY nystatin [Nyamyc] 100,000 unit/gram powder 1 applic topical BID Protocol: *Topical Application Instructions APPLICATION INSTRUCTIONS: vinicius area menthol-zinc oxide [Calmoseptine] 0.44-20.6 % ointment 1 applic topical TID Protocol: *Topical Application Instructions APPLICATION INSTRUCTIONS: buttocks Ted (with collagen) 7-7-1.5 gram powder in packet 1 packet PO BIDCM Changed sodium bicarbonate 650 mg tablet 650 mg PO BID Qty: 30 0RF insulin glargine-yfgn 100 unit/mL (3 mL) insulin pen 5 unit subcut QHS Qty: 15 0RF Rx Instructions: Hold if glucose less than 130 mg/dl Held gabapentin 300 mg capsule 100 mg TID Hold Instructions: Hold for today and start gabapentin 300 mg 1 capsule daily in the morning Label Comments: TAKE 3 CAPSULES BY MOUTH THREE TIMES DAILY FOR 90 DAYS. Discontinued hydroxyzine HCl 25 mg Tablet 25 mg PO TID PRN (Reason: Anxiety) pramipexole 1.5 mg Tablet 1.5 mg PO BID guaifenesin 600 mg Tablet Extended Release 12hr 400 mg PO BID furosemide 40 mg Tablet 40 mg PO BID bumetanide 0.5 mg Tablet 0.5 mg PO BID insulin lispro [Humalog KwikPen Insulin] 100 unit/mL insulin pen See Protocol subcut [facility] Protocol: 3. Sliding Scale Insulin Med Dosing Condition: 150-189 mg/dl = 1 unit Condition: 190-229 mg/dl = 2 units Condition: 230-269 mg/dl = 3 units Condition: 270-309 mg/dl = 4 units Condition: 310-349 mg/dl = 5 units Condition: 350-399 mg/dl = 6 units Condition: 400-449 mg/dl = 7 units Condition: Greater than 449 call physician Protocol Text: - Use for Total Daily Dose of Insulin 37-55 units - Obsese, infected, or steroid patients MEDIUM DOSING ALGORITHIM cyclobenzaprine 5 mg tablet 5 mg PO 3XD multivit,stress formula-zinc 1 tab PO DAILY isosorbide dinitrate 20 mg tablet 20 mg PO TID Referrals / Follow Up: Tiffanie Gutierrez MD [Primary Care Provider] - Disposition Disposition (needs filled in before D/C Order can be placed): [facility]
[2022-07-21] MEDS: Epoetin Alfa epbx 10,000 UNITS/ML 20000 UNIT IV (10:13)
[2022-07-21] MEDS: Potassium Chloride Oral Tablet 20 MEQ PO (10:13)
[2022-07-21] MEDS: Ascorbic Acid 500 MG Tablet PO (10:14)
[2022-07-21] MEDS: Carvedilol 12.5 MG Tablet PO (10:14)
[2022-07-21] MEDS: Ensure Plus High Protein 120 ML LIQUID PO (10:14)
[2022-07-21] MEDS: Pantoprazole Sodium 40 MG Tablet PO (10:14)
[2022-07-21] MEDS: Clopidogrel Bisulfate 75 MG Tablet PO (10:14)
[2022-07-21] MEDS: Folic Acid 1 MG Tablet 0.5 MG PO (10:15)
[2022-07-21] MEDS: Paroxetine 20 MG Tablet PO (10:15)
[2022-07-21] MEDS: Ferrous Sulfate 325 MG Tablet PO (10:15)
[2022-07-21] MEDS: Menthol/Lanolin/Calamine/Znox 113 GM Tube 1 APPLIC TOPICAL (10:17)
[2022-07-21] MEDS: Juven (unflavored) Packet 1 PACKET PO (10:17)
[2022-07-21] MEDS: Aspirin E.C. 81 MG Tablet PO (10:17)
[2022-07-21] MEDS: Acetaminophen 325 MG Tablet 650 MG PO (10:18)
--- NOTE | 2022-07-21 10:51 | PCM.PN.REN ---
Subjective Subjective Resting in bed. Seen on dialysis, tolerating treatment well. Patient is more alert and oriented this morning. Denies any complaints. Objective Data Objective Data Vital Signs: Vital Signs Temp Pulse Resp BP Pulse Ox O2 Del Method O2 Flow Rate 98.2 F 67 18 134/66 H 96 Nasal Cannula 3 07/21/22 05:38 07/21/22 07:34 07/21/22 05:38 07/21/22 05:38 07/21/22 07:54 07/21/22 07:54 07/21/22 07:54 Oxygen Flow Rate (L/min) 3 Oxygen Delivery Method Nasal Cannula Weight: 74 kg Body Mass Index (BMI) 26.3 Intake & Output: Intake and Output for Last 24 Hours 07/19/22 07/20/22 07/21/22 23:59 23:59 23:59 Intake Total 240 / 240 858.11 / 858.11 Output Total 1999 Balance 240 / 240 -1141.89 / -1141.89 Lab / Micro Data Result Diagrams: 07/21/22 06:25 07/21/22 06:25 Labs: Laboratory Results - last 24 hr 07/19/22 17:10: Hep Bs Antigen Non-Reactive 07/20/22 11:21: POC Glucose 79 07/20/22 16:26: POC Glucose 91 07/20/22 22:32: POC Glucose 114 H 07/21/22 06:25: WBC 11.1 H, RBC 2.67 L, Hgb 7.6 L, Hct 26.2 L, MCV 98.1, MCH 28.5, MCHC 29.0 L D, RDW Std Deviation 52.6 H, RDW Coeff of Fior 14.8 H, Plt Count 234, MPV 10.7 07/21/22 06:25: PT 17.3 H, INR 1.5, APTT 41.7 H 07/21/22 06:25: Sodium 138, Potassium 3.5, Chloride 103, Carbon Dioxide 31.0, Anion Gap 4 L, BUN 16, Creatinine 2.44 H, Estim Creat Clear Calc 23.81, Est GFR (MDRD) Af Amer 26 L, Est GFR (MDRD) Non-Af 22 L, BUN/Creatinine Ratio 6.6 L, Glucose 103, Calcium 7.8 L 07/21/22 06:49: POC Glucose 97 Radiography Diagnostic Testing: Radiology Impression Echocardiogram 07/19/22 16:27 Interpretation Summary Normal LV size. The estimated ejection fraction is 35 %. There is moderate global hypokinesis of the left ventricle. Mild (1+) eccentric mitral valve insufficiency. Pulmonary artery systolic pressure is 48 mmHg. Compared to previous study, the left ventricular systolic function has worsened.. Ordering Physician: Kali Prado Performed By: Azucena Vidales RCS Physical Exam Narrative Const: In no apparent distress, alert to name Cardio: S1, S2, RRR Respiratory: Lung sounds clear anteriorly and posteriorly, no wheezes rhonchi or rales noted Gastrointestinal: Abdomen soft, nontender, positive bowel sounds Extremities: No edema noted bilateral lower legs feet or arms Tunneled HD catheter right chest area dressing clean, dry and intact. Accessed for hemodialysis Assessment & Plan Assessment/Plan (1) Acute respiratory failure with hypoxia: (2) Hypoglycemia: (3) Non-STEMI (non-ST elevated myocardial infarction): (4) Encephalopathy acute: (5) End stage renal disease: PLAN: Plan - Unknown if patient is dialysis requiring acute kidney injury on CKD stage IV or if renal function has progressed to ESRD. Per patient she was started on hemodialysis about a month ago when admitted to [facility]. Prior to starting dialysis patient had known history of CKD stage IV. Patient currently dialyzes at [facility] kidney center Tuesday. For dialysis today over 3.5 hours on 2K bath and attempt around 2 L fluid removal as patient/blood pressure tolerates. Okay to continue bumetanide daily. Patient tolerated 2 L UF with dialysis on 07/20. - Patient was evaluated by cardiology for non-STEMI, she underwent heart catheterization 07/20: Previously placed stent in LAD is patent, disease in circumflex artery unchanged, RCA with no significant stenosis. Recommend medical therapy. -Altered mental status; improved. Patient had brain CT which did not show any acute process. Blood sugars have improved. Apparently patient was recently started on Imnaha, this was discontinued as well as Mirapex, cyclobenzaprine and tramadol. Ok to resume gabapentin 100mg tid. -Anemia of chronic disease, to receive JORGE with HD today. -Discussed with Dr. Vu. Possible discharge to ECF today.
--- NOTE | 2022-07-21 11:04 | DS.PCM_ITS ---
Providers Date of Admission: 07/19/22 Date of Discharge: 07/21/22 Primary Care Physician: Dr. Tiffanie Gutierrez MD Consultations 07/19/22 16:27 Consult: Nephrology Routine Consulting Provider: Alysha Cooper Reason for Consult: dialysis EMERGENT Consult: No Notified: Yes Date Notified: 07/19/22 Time Notified: 16:32 Method of Notification: Answering Service 07/19/22 19:09 Consult: Cardiology Routine Consulting Provider: Saravanan Jean Baptiste Reason for Consult: NSTEMI EMERGENT Consult: No Notified: Yes Date Notified: 07/19/22 Time Notified: 19:09 Method of Notification: Text Reason For Visit: AMS & PNEUMONIA Diagnosis Discharge Diagnosis (1) Encephalopathy acute: Status: Acute Code(s): G93.40 - Encephalopathy, unspecified (2) Acute respiratory failure with hypoxia: Status: Acute Code(s): J96.01 - Acute respiratory failure with hypoxia (3) Non-STEMI (non-ST elevated myocardial infarction): Status: Acute Code(s): I21.4 - Non-ST elevation (NSTEMI) myocardial infarction (4) End stage renal disease: Status: Acute Code(s): N18.6 - End stage renal disease (5) Hypoglycemia: Status: Acute Code(s): E16.2 - Hypoglycemia, unspecified Medications at Discharge Home Medications atorvastatin 80 mg tablet 80 mg PO QHS cholesterol #90 tabs 11/30/19 paroxetine HCl 20 mg tablet 20 mg PO DAILY DEPRESSION 07/07/21 gabapentin 300 mg capsule 100 mg TID nerve pain 12/23/21 bupropion HCl 150 mg 24 hr tablet, extended release 150 mg PO DAILY mood 02/04/22 carvedilol 12.5 mg tablet 12.5 mg PO BID heart 02/04/22 melatonin 5 mg tablet 5 mg PO QHS sleep 04/09/22 albuterol sulfate 2.5 mg/3 mL (0.083 %) solution for nebulization 2.5 mg (3 mL) inhalation Q2H PRN PRN Dyspnea, wheezing #0 mL 04/24/22 sennosides 8.6 mg-docusate sodium 50 mg tablet (Stool Softener-Stimulant Laxative) 2 tab PO BID PRN PRN Constipation #0 tabs 04/24/22 acetaminophen 325 mg tablet (Tylenol) 650 mg PO Q4H PRN PRN pain or temperature 05/05/22 ascorbic acid (vitamin C) 500 mg tablet (Vitamin C) 500 mg PO BID supplement 05/05/22 arginine 7 gram-glutam 7 gram-CaHMB 1.5 [id number] oral pwd pkt (Ted ( with collagen)) 1 packet PO BIDCM wound healing 07/19/22 bumetanide 1 mg tablet 1 mg PO BID water pill 07/19/22 clopidogrel 75 mg tablet 75 mg PO DAILY prevent stroke 07/19/22 ferrous sulfate 325 mg (65 mg iron) tablet 325 mg PO DAILY anemia 07/19/22 folic acid 400 mcg tablet 400 mcg PO DAILY supplement 07/19/22 hydralazine 50 mg tablet 50 mg TID blood pressure 07/19/22 menthol 0.44 %-zinc oxide 20.6 % topical ointment (Calmoseptine) 1 applic topical TID impaired skin integrity 07/19/22 nystatin 100,000 unit/gram topical powder (Nyamyc) 1 applic topical BID redness 07/19/22 pantoprazole 40 mg tablet,delayed release 40 mg PO BIDCM GERD 07/19/22 potassium chloride 20 mEq tablet,extended release 20 meq PO DAILY supplement 07/19/22 insulin glargine-yfgn 100 unit/mL (3 mL) subcutaneous pen 5 unit (0.05 mL) subcut QHS blood sugar #15 mL 07/21/22 insulin lispro 100 unit/mL subcutaneous pen (Humalog KwikPen (U-100) Insulin) See Protocol subcut TIDAC #0 mL 07/21/22 isosorbide dinitrate 10 mg tablet 10 mg PO TID #0 tabs 07/21/22 sodium bicarbonate 650 mg tablet 650 mg PO BID replacement #30 tabs 07/21/22 Hospital Course Summary of Care Provided Hospital Course: This 57-year-old female who was admitted from [place] ED for altered mental status. Patient glucose noted to be 64. Patient was also found hypoxic, pulse ox 60% on room air. Subsequently patient mental status improved. COVID was negative. Patient troponin was elevated. Patient was admitted in PCU. Her further hospital course, assessment, management plan as mentioned below 1. Acute toxic encephalopathy due to multiple medications/polypharmacy. Most probably patient hydroxyzine and narcotics were restarted as an outpatient. Patient was last admitted with similar diagnosis and was recommended to decrease cyclobenzaprine and gabapentin for pain. Patient cyclobenzaprine and hydroxyzine discontinued. Gabapentin decreased in dose to 300 mg once daily as per creatinine clearance. Patient was recently started back on narcotics which was discontinued along with hydroxyzine and Mirapex. CT head did not show any acute process. 07/20: Patient acute mental status much improved as per ER physician in [place] and then admitting hospitalist. No focal abnormal neurologic finding on exam. Blood sugar was 94. Not in hypoglycemic range. Patient had hypoglycemia in the past 61 in April 2022 2. Mild hypoxia: Pulse ox was reported at 60% in [place] ED. most recent pulse ox 97% on 3 L of oxygen. I do not think patient has acute hypoxic respiratory failure, ruled out. Chest x-ray no acute abnormality. Patient did receive antibiotics at the outside hospital. Chest x-ray did not show any acute infiltrate/pneumonic consolidation or his clinical symptoms of pneumonia therefore antibiotic not recommended. 4. NSTEMI Likely a type II event given the patient's hypoxia encephalopathy. Last echo EF 55%, LV systolic function normal, mild concentric LVH. Mild to moderate TR, trivial MR with evidence of diastolic suggestive of mild HFpEF Serial troponin shows high Business Intelligence Etl Developer was consulted. Normal LV motion, EF 55%. Previously placed stent in LAD patent. Circumflex no significant disease noted and unchanged from previous study. Continue medical management. 5. ESRD on hemodialysis Tuesday and Tuesday: Recently started on hemodialysis. Esl Instructional Assistant consulted and dialyzed as per cloth shearing supervisor. Last dialyzed today. Had completed daptomycin and ertapenem for osteomyelitis in foot. Wound on her foot appears well at this time. VTE prophylaxis: Anticoagulation CODE STATUS: Cannot adequately assess the with the patient at this time. Therefore patient will be full code unverified. Discharge medication reconciliation done. Discharge follow-up instructions completed. Discharge process discussed with the patient and all questions were answered to patient's satisfaction. Total time spent, exact 35 minutes on discharge meds reconciliation, examination, coordination of care with nurses and ancillary staff, review of imaging and blood test and discussion with the patient on follow-up instructions. Physical Exam Narrative No shortness of breath or chest pain. No fever. Patient has restless leg syndrome and states if she moves her legs she does not feel pain. Patient undergoing dialysis. Physical exam General: Alert awake oriented x3. HEENT: Atraumatic, PERRLA, EOMI, Normocephalic Oral: Oral mucosa dry. No Gingival or Mucosal Lesions/ Ulcerations Neck: Supple, No JVD, Negative Carotid Bruits Lungs: Air entry diminished in bilateral lung bases. No crepitation/rhonchi Cardiovascular: Regular rate, Regular Rhythm, Normal S1, Normal S2, No murmurs Abdomen: Bowel Sounds Present, Soft, Non Tender, Non-Distended : No renal angle tenderness. No suprapubic tenderness. Extremities: Constant movement of No edema, Capillary Refill Less than 3 Seconds Skin: Right femoral artery access site, no hematoma/bruits. Right radial artery access attempted but not successful. Musculoskeletal: ROM restricted at left hip and knee joint. Right LE not evaluated because of restriction after cath Neurological: Cranial nerves II-XII grossly intact, DTR 2+/4 Psych/Mental Status: Flat affect. Weight / BMI Weight Weight: 163 lb 2.273 oz Body Mass Index (BMI) 26.3 ABG / Lab / Microbiology Data Result Diagrams: 07/21/22 06:25 07/21/22 06:25 Laboratory: Laboratory Results - last 24 hr 07/19/22 17:10: Hep Bs Antigen Non-Reactive 07/20/22 11:21: POC Glucose 79 07/20/22 16:26: POC Glucose 91 07/20/22 22:32: POC Glucose 114 H 07/21/22 06:25: WBC 11.1 H, RBC 2.67 L, Hgb 7.6 L, Hct 26.2 L, MCV 98.1, MCH 28.5, MCHC 29.0 L D, RDW Std Deviation 52.6 H, RDW Coeff of Fior 14.8 H, Plt Count 234, MPV 10.7 07/21/22 06:25: PT 17.3 H, INR 1.5, APTT 41.7 H 07/21/22 06:25: Sodium 138, Potassium 3.5, Chloride 103, Carbon Dioxide 31.0, Anion Gap 4 L, BUN 16, Creatinine 2.44 H, Estim Creat Clear Calc 23.81, Est GFR (MDRD) Af Amer 26 L, Est GFR (MDRD) Non-Af 22 L, BUN/Creatinine Ratio 6.6 L, Glucose 103, Calcium 7.8 L 07/21/22 06:49: POC Glucose 97 Radiography Diagnostic Testing: Radiology Impression Echocardiogram 07/19/22 16:27 Interpretation Summary Normal LV size. The estimated ejection fraction is 35 %. There is moderate global hypokinesis of the left ventricle. Mild (1+) eccentric mitral valve insufficiency. Pulmonary artery systolic pressure is 48 mmHg. Compared to previous study, the left ventricular systolic function has worsened.. Ordering Physician: Kali Prado Performed By: Azucena Vidales RCS Meaningful Use Info Meaningful Use Diagnoses (Choose all that apply): AMI AMI/Post PCI/Angioplasty Aspirin given w/in 24hrs of arrival?: Yes Reason no aspirin w/in 24hrs of arrival?: On Plavix ASA at discharge?: Yes Antiplatelet Therapy at Discharge:: Yes Statins at discharge?: Yes [place]/ARB at discharge?: No Reason [place]/ARB not ordered:: Worsening renal function Beta Tin at discharge?: Yes Done w/ Acute UT measure.: Yes Documented LVEF (%): 55 CHF Documented LVEF (%): 55 Discharge Plan Admission Admit Date/Time: 07/19/22 16:02 Primary Reason for Your Visit: Acute toxic encephalopathy, elevated troponin Attending Provider: Blas Vu Primary Care Provider: Tiffanie Gutierrez Consulting Providers: Alysha Cooper ; Saravanan Jean Baptiste ; Kali Prado Discharge Orders/Prescriptions Prescriptions: New isosorbide dinitrate 10 mg Tablet 10 mg PO TID Qty: 0 0RF insulin lispro [Humalog KwikPen Insulin] 100 unit/mL Insulin Pen See Protocol subcut TIDAC Qty: 0 0RF Protocol: 1. Sliding Scale Insulin Low Dosing Condition: 150-224 mg/dl = 1 unit Condition: 225-299 mg/dl = 2 units Condition: 300-374 mg/dl = 3 units Condition: 375-499 mg/dl = 4 units Condition: Greater than 449 call physician Protocol Text: - Use for Total Daily Dose of Insulin 15-27 units - Thin, elderly, renal patients LOW DOSING ALGORITHM Continued atorvastatin 80 mg tablet 80 mg PO QHS Qty: 90 3RF paroxetine HCl 20 mg tablet 20 mg PO DAILY Label Comments: TAKE 1 TABLET BY MOUTH EVERY DAY IN THE EVENING carvedilol 12.5 mg Tablet 12.5 mg PO BID bupropion HCl 150 mg tablet extended release 24 hr 150 mg PO DAILY Label Comments: TAKE 1 TABLET BY MOUTH EVERY DAY melatonin 5 mg Tablet 5 mg PO QHS albuterol sulfate 2.5 mg /3 mL (0.083 %) Solution For Nebulization 2.5 mg inhalation Q2H PRN PRN (Reason: Dyspnea, wheezing) Qty: 0 0RF sennosides-docusate sodium [Stool Softener-Stimulant Laxat] 8.6-50 mg Tablet 2 tab PO BID PRN PRN (Reason: Constipation) Qty: 0 0RF ascorbic acid (vitamin C) [Vitamin C] 500 mg Tablet 500 mg PO BID acetaminophen [Tylenol] 325 mg tablet 650 mg PO Q4H PRN PRN (Reason: pain or temperature) folic acid 400 mcg Tablet 400 mcg PO DAILY bumetanide 1 mg Tablet 1 mg PO BID hydralazine 50 mg Tablet 50 mg TID potassium chloride 20 mEq Tablet Extended Release 20 meq PO DAILY clopidogrel 75 mg tablet 75 mg PO DAILY pantoprazole 40 mg tablet,delayed release (DR/EC) 40 mg PO BIDCM ferrous sulfate 325 mg (65 mg iron) tablet 325 mg PO DAILY nystatin [Nyamyc] 100,000 unit/gram powder 1 applic topical BID Protocol: *Topical Application Instructions APPLICATION INSTRUCTIONS: vinicius area menthol-zinc oxide [Calmoseptine] 0.44-20.6 % ointment 1 applic topical TID Protocol: *Topical Application Instructions APPLICATION INSTRUCTIONS: buttocks Ted (with collagen) 7-7-1.5 gram powder in packet 1 packet PO BIDCM Changed sodium bicarbonate 650 mg tablet 650 mg PO BID Qty: 30 0RF insulin glargine-yfgn 100 unit/mL (3 mL) insulin pen 5 unit subcut QHS Qty: 15 0RF Rx Instructions: Hold if glucose less than 130 mg/dl Held gabapentin 300 mg capsule 100 mg TID Hold Instructions: Hold for today and start gabapentin 300 mg 1 capsule daily in the morning Label Comments: TAKE 3 CAPSULES BY MOUTH THREE TIMES DAILY FOR 90 DAYS. Discontinued hydroxyzine HCl 25 mg Tablet 25 mg PO TID PRN (Reason: Anxiety) pramipexole 1.5 mg Tablet 1.5 mg PO BID guaifenesin 600 mg Tablet Extended Release 12hr 400 mg PO BID furosemide 40 mg Tablet 40 mg PO BID bumetanide 0.5 mg Tablet 0.5 mg PO BID insulin lispro [Humalog KwikPen Insulin] 100 unit/mL insulin pen See Protocol subcut [facility] Protocol: 3. Sliding Scale Insulin Med Dosing Condition: 150-189 mg/dl = 1 unit Condition: 190-229 mg/dl = 2 units Condition: 230-269 mg/dl = 3 units Condition: 270-309 mg/dl = 4 units Condition: 310-349 mg/dl = 5 units Condition: 350-399 mg/dl = 6 units Condition: 400-449 mg/dl = 7 units Condition: Greater than 449 call physician Protocol Text: - Use for Total Daily Dose of Insulin 37-55 units - Obsese, infected, or steroid patients MEDIUM DOSING ALGORITHIM cyclobenzaprine 5 mg tablet 5 mg PO 3XD multivit,stress formula-zinc 1 tab PO DAILY isosorbide dinitrate 20 mg tablet 20 mg PO TID Referrals / Follow Up: Tiffanie Gutierrez MD [Primary Care Provider] - Disposition Disposition (needs filled in before D/C Order can be placed): Half-Way Facility Charges/Coding Visit Charges Inpatient E&M: 52167 Disch Hosp
--- NOTE | 2022-07-21 11:17 | PHA.DC.MR ---
Pharmacy Service has performed discharge medication reconciliation for this patient. The patient's discharge medication list was reviewed for discrepancies and discrepancies were resolved. Home Medications atorvastatin 80 mg tablet 80 mg PO QHS cholesterol #90 tabs 11/30/19 paroxetine HCl 20 mg tablet 20 mg PO DAILY DEPRESSION 07/07/21 gabapentin 300 mg capsule 100 mg TID nerve pain 12/23/21 bupropion HCl 150 mg 24 hr tablet, extended release 150 mg PO DAILY mood 02/04/22 carvedilol 12.5 mg tablet 12.5 mg PO BID heart 02/04/22 melatonin 5 mg tablet 5 mg PO QHS sleep 04/09/22 albuterol sulfate 2.5 mg/3 mL (0.083 %) solution for nebulization 2.5 mg (3 mL) inhalation Q2H PRN PRN Dyspnea, wheezing #0 mL 04/24/22 sennosides 8.6 mg-docusate sodium 50 mg tablet (Stool Softener-Stimulant Laxative) 2 tab PO BID PRN PRN Constipation #0 tabs 04/24/22 acetaminophen 325 mg tablet (Tylenol) 650 mg PO Q4H PRN PRN pain or temperature 05/05/22 ascorbic acid (vitamin C) 500 mg tablet (Vitamin C) 500 mg PO BID supplement 05/05/22 arginine 7 gram-glutam 7 gram-CaHMB 1.5 [id number] oral pwd pkt (Ted (with collagen)) 1 packet PO BIDCM wound healing 07/19/22 bumetanide 1 mg tablet 1 mg PO BID water pill 07/19/22 clopidogrel 75 mg tablet 75 mg PO DAILY prevent stroke 07/19/22 ferrous sulfate 325 mg (65 mg iron) tablet 325 mg PO DAILY anemia 07/19/22 folic acid 400 mcg tablet 400 mcg PO DAILY supplement 07/19/22 hydralazine 50 mg tablet 50 mg TID blood pressure 07/19/22 menthol 0.44 %-zinc oxide 20.6 % topical ointment (Calmoseptine) 1 applic topical TID impaired skin integrity 07/19/22 nystatin 100,000 unit/gram topical powder (Nyamyc) 1 applic topical BID redness 07/19/22 pantoprazole 40 mg tablet,delayed release 40 mg PO BIDCM GERD 07/19/22 potassium chloride 20 mEq tablet,extended release 20 meq PO DAILY supplement 07/19/22 insulin glargine-yfgn 100 unit/mL (3 mL) subcutaneous pen 5 unit (0.05 mL) subcut QHS blood sugar #15 mL 07/21/22 insulin lispro 100 unit/mL subcutaneous pen (Humalog KwikPen (U-100) Insulin) See Protocol subcut TIDAC #0 mL 07/21/22 isosorbide dinitrate 10 mg tablet 10 mg PO TID #0 tabs 07/21/22 sodium bicarbonate 650 mg tablet 650 mg PO BID replacement #30 tabs 07/21/22
--- NOTE | 2022-07-21 11:58 | DIALYSIS ---
3.5 hours HD complete. UF 2000 ml.patient tolerated well. CVc WNL. see dialysis record
[2022-07-21 12:20] LABS: Bedside Glucose 93 mg/dL (74-106)
[2022-07-21] MEDS: Nystatin Powder 15gm Bottle 1 APPLIC TOPICAL (12:54)
--- NOTE | 2022-07-21 12:54 | CASEMGMT ---
Discharge Back Tender Cloth Printing Yaneli d/c communications assistant sent d/c orders to [facility]. Yaneli called [facility] for transportation. Yaneli requested a Wheel chair. forging press setter up time is 2:00pm. Nursing staff and patient made aware. Plan: [facility] Discharge Back Tender [employer]ing
[2022-07-21] MEDS: Heparin 10,000 UNITS/10 ML Vial 4000 UNITS IV (12:55)
[2022-07-21] MEDS: Pramipexole Di-HCl 1 MG Tablet PO (12:55)
--- NOTE | 2022-07-21 13:51 | NURSING ---
report called to [facility] for return -transport pick [id number]
== END 2022-07-21 14:18 | disposition skilled nursing facility (03) | DRG 91 ==
PROVIDERS: Internal Medicine Cardiovascular Disease; Internal Medicine Nephrology; PCP Internal Medicine; Visit Provider Internal Medicine
DX: G92.8 Other toxic encephalopathy (principal); I21.A1 Myocardial infarction type 2; N18.6 End stage renal disease; I12.0 Hypertensive chronic kidney disease with stage 5 chronic kidney disease or end stage renal disease; E11.649 Type 2 diabetes mellitus with hypoglycemia without coma; D63.8 Anemia in other chronic diseases classified elsewhere; Z79.4 Long term (current) use of insulin; E11.42 Type 2 diabetes mellitus with diabetic polyneuropathy; E11.22 Type 2 diabetes mellitus with diabetic chronic kidney disease; Z99.2 Dependence on renal dialysis; Z89.421 Acquired absence of other right toe(s); Z89.422 Acquired absence of other left toe(s); E78.5 Hyperlipidemia, unspecified; I25.10 Atherosclerotic heart disease of native coronary artery without angina pectoris; I25.5 Ischemic cardiomyopathy; F41.9 Anxiety disorder, unspecified; K21.9 Gastro-esophageal reflux disease without esophagitis; I25.2 Old myocardial infarction; T40.605A Adverse effect of unspecified narcotics, initial encounter; T43.595A Adverse effect of other antipsychotics and neuroleptics, initial encounter; Z20.822 Contact with and (suspected) exposure to COVID-19; Z23 Encounter for immunization; G89.29 Other chronic pain; F32.A Depression, unspecified; Z86.73 Personal history of transient ischemic attack (TIA), and cerebral infarction without residual deficits; Z95.5 Presence of coronary angioplasty implant and graft
CPT/HCPCS: 36415; 70450; 80048; 80053; 80076; 82962; 84443; 84484; 85025; 85027; 85610; 85730; 87340; 87426; 90937; 93005; 93306; 93454; 97802; 99152; 99153; G0008; J7030; 90686; C1769; C1894; G0257; Q5106; Q9967

== ENCOUNTER 2023-10-21 20:28 | Emergency (ER) | payer MEDICARE, MEDICAID, SELFPAY ==
[2018-09-21 13:23] VITALS: BMI 29.3
[2023-10-21 20:30] VITALS: BP 130/65; PULSE 93; RESP 18; TEMP 35.9; O2SAT 94
--- NOTE | 2023-10-21 21:11 | EDS_ITS ---
HPI History of Present Illness Chief Complaint: Back Informant: patient and family Narrative Narrative: Patient presents with exacerbation of her restless leg syndrome and back pain. Both of these are chronic. She has been at [facility] for months. They have been treating this with Vicodin. When they discharged her they did not give her her Vicodin. Her daughter states she asked for it but they stated they were not allowed to give this. I did tell them that there was a prescription filled on the sixth of this month but they stated that was through the [facility] and they did not get the medicines. They were referred to their pain management doctor from prior and they have an appointment already on Tuesday. Patient states she has had restless legs since she was a child. She has had significant back pain. She had surgery about a year ago at [place] with Dr. Neff. She states her symptoms are the same as she always has she just does not have medicines. She is on dialysis but had dialysis today as normal. [facility] Medical History Acquired varus deformity of left foot Acquired varus deformity of right foot Acute lumbar radiculopathy Acute on chronic anemia Adult failure to thrive Amputation foot, bilat Anemia due to chronic illness Anemia in chronic illness Anxiety and depression Atherosclerosis of [place] coronary artery of [place] heart without angina pectoris Back pain, chronic Bilateral edema of lower extremity Cellulitis Cellulitis of both lower extremities Charcot's joint of right foot Charcot's joint, left ankle and foot Charcot's joint, right ankle and foot Chronic foot pain Chronic kidney disease, stage 3b Chronic kidney disease, stage 4 (severe) Chronic renal disease, stage 4, severely decreased glomerular filtration rate (GFR) between 15-29 mL/min/1.73 square meter Chronic renal insufficiency Chronic ulcer of left foot with fat layer exposed 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 Chronic ulcer of right foot with fat layer exposed Chronic ulcer of right foot with necrosis of bone Chronic ulcer of right foot with necrosis of muscle Chronic ulcer of right leg with fat layer exposed COVID-19 (08/28/21) CRF (chronic renal failure) Debility Delayed wound healing Diabetes Diabetes mellitus with diabetic polyneuropathy Diabetic foot ulcer associated with type 2 diabetes mellitus Diabetic foot ulcers Diabetic infection of left foot Diabetic polyneuropathy Diabetic ulcer of right ankle Elevated troponin End stage renal disease Essential (primary) hypertension Essential hypertension Foot osteomyelitis, left GERD (gastroesophageal reflux disease) Hemoglobin A1c greater than 9.0% HLD (hyperlipidemia) Hyperparathyroidism, secondary renal Hypertension Iron deficiency anemia Ischemic cardiomyopathy Myocardial infarct Non-compliance Non-pressure chronic ulcer of other part of left foot with fat layer exposed Non-pressure chronic 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 layer exposed Non-smoker Normocytic anemia NSTEMI (non-ST elevated myocardial infarction) (09/20/18) Obesity (BMI 30.0-34.9) Osteomyelitis Osteomyelitis of left foot Osteomyelitis of metatarsal RLS (restless legs syndrome) Stage 4 chronic kidney disease TIA (transient ischemic attack) Type 2 diabetes mellitus 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 Ulcer of left foot with fat layer exposed Ulcer of left foot with muscle involvement without evidence of necrosis Ulcer of left foot with necrosis of muscle Ulcer of right lower extremity with fat layer exposed Home Medications atorvastatin 80 mg tablet 80 mg PO QHS cholesterol #90 tabs 11/30/19 [Rx Last Taken 04/07/22] paroxetine HCl 20 mg tablet 20 mg PO DAILY DEPRESSION 07/07/21 [History Last Taken 04/07/22] gabapentin 300 mg capsule 100 mg TID nerve pain 12/23/21 [History Last Taken 04/07/22] bupropion HCl 150 mg 24 hr tablet, extended release 150 mg PO DAILY mood 02/04/22 [History Last Taken 04/07/22] carvedilol 12.5 mg tablet 12.5 mg PO BID heart 02/04/22 [History Last Taken 04/07/22] melatonin 5 mg tablet 5 mg PO QHS sleep 04/09/22 [History Last Taken 04/07/22] albuterol sulfate 2.5 mg/3 mL (0.083 %) solution for nebulization 2.5 mg (3 mL) inhalation Q2H PRN PRN Dyspnea, wheezing #0 mL 04/24/22 [Rx Last Taken Unknown] sennosides 8.6 mg-docusate sodium 50 mg tablet (Stool Softener-Stimulant Laxative) 2 tab PO BID PRN PRN Constipation #0 tabs 04/24/22 [Rx Last Taken Unknown] acetaminophen 325 mg tablet (Tylenol) 650 mg PO Q4H PRN PRN pain or temperature 05/05/22 [History Last Taken Unknown] ascorbic acid (vitamin C) 500 mg tablet (Vitamin C) 500 mg PO BID supplement 05/05/22 [History Last Taken Unknown] arginine 7 gram-glutam 7 gram-CaHMB 1.5 [id number]-rv-min oral pwd pkt (Ted (with collagen)) 1 packet PO BIDCM wound healing 07/19/22 [History Last Taken Unknown] bumetanide 1 mg tablet 1 mg PO BID water pill 07/19/22 [History Last Taken Unknown] clopidogrel 75 mg tablet 75 mg PO DAILY prevent stroke 07/19/22 [History Last Taken Unknown] ferrous sulfate 325 mg (65 mg iron) tablet 325 mg PO DAILY anemia 07/19/22 [History Last Taken Unknown] folic acid 400 mcg tablet 400 mcg PO DAILY supplement 07/19/22 [History Last Taken Unknown] hydralazine 50 mg tablet 50 mg TID blood pressure 07/19/22 [History Last Taken Unknown] menthol 0.44 %-zinc oxide 20.6 % topical ointment (Calmoseptine) 1 applic topical TID impaired skin integrity 07/19/22 [History Last Taken Unknown] nystatin 100,000 unit/gram topical powder (Nyamyc) 1 applic topical BID redness 07/19/22 [History Last Taken Unknown] pantoprazole 40 mg tablet,delayed release 40 mg PO BIDCM GERD 07/19/22 [History Last Taken Unknown] potassium chloride 20 mEq tablet,extended release 20 meq PO DAILY supplement 07/19/22 [History Last Taken Unknown] insulin glargine-yfgn 100 unit/mL (3 mL) subcutaneous pen 5 unit (0.05 mL) subcut QHS blood sugar #15 mL 07/21/22 [Rx Last Taken Unknown] insulin lispro 100 unit/mL subcutaneous pen (Humalog KwikPen (U-100) Insulin) See Protocol subcut TIDAC #0 mL 07/21/22 [Rx Last Taken Unknown] isosorbide dinitrate 10 mg tablet 10 mg PO TID #0 tabs 07/21/22 [Rx Last Taken Unknown] sodium bicarbonate 650 mg tablet 650 mg PO BID replacement #30 tabs 07/21/22 [Rx Last Taken Unknown] hydrocodone-acetaminophen 5-325mg 5mg-325mg 1 tab PO Q6H PRN PRN Pain 3 days #12 TABLETS 10/21/23 [Rx Last Taken Unknown] Allergy/AdvReac Type Severity Reaction Status Date / Time Penicillins Allergy swelling Verified 10/21/23 20:30 in throat vancomycin Allergy Itching Verified 10/21/23 20:30 metronidazole AdvReac Nausea Verified 10/21/23 20:30 oxycodone [From OxyContin] AdvReac Shortness Verified 10/21/23 20:30 of breath Family History Mother Diabetes CVA (cerebral vascular accident) Brother CAD (coronary artery disease) CABG X 3 Cancer testicular Diabetes Brother CAD (coronary artery disease) CABG X3 Diabetes Brother CAD (coronary artery disease) Stents Diabetes Sister CAD (coronary artery disease) CABG x 3 CVA (cerebral vascular accident) Diabetes Surgical History History of bilateral carpal tunnel release History of History of coronary artery stent placement (12/31/20) History of foot surgery History of rotator cuff surgery Social History household members: none number of children: 2 current occupational status: disabled Smoking Status: Never smoker alcohol intake: never substance use type: does not use caffeine: Yes Type: carbonated beverages Number of servings: 2 ROS ROS ED Constitutional Constitutional ED: Denies chills or fever(s) ENT ENT ED: Denies rhinorrhea Cardiovascular Cardiovascular: Denies chest pain or palpitations Respiratory/Chest Respiratory/Chest: Denies dyspnea or dyspnea on exertion Gastrointestinal Gastrointestinal: Denies abdominal pain, nausea or vomiting Musculoskeletal Musculoskeletal: Reports back pain Integumentary Denies abscess or rash Neurologic Neurologic: Denies headache(s), paresthesias or weakness Psychiatric Psychiatric: Reports anxiety Hematologic/Lymphatic Hematologic/Lymphatic: Denies easy bleeding or easy bruising Allergic/Immunologic Allergic/Immunologic ED: Denies urticaria EXAM Physical Exam Narrative Exam Narrative: General: Patient is awake alert nontoxic. She is sitting on the bed and swings her legs. This does stop when I examine the back. HEENT: No sign of acute trauma. Lungs are clear. She has Vas-Cath in. Heart is regular. No muffled tones. Pulses are good. Abdomen is nontender. Back shows a very large but well-healed scar in the back. No focal tenderness. Extremities are thin. There is no edema. Sensation seems to still be intact. But she does tend to move her feet and lower extremities quite a bit when not being examined. She states this is the restless leg. She has no pain radiating down the legs. Const Vital Signs: 10/21/23 20:30 Temperature 96.7 F L Temperature Source Temporal Pulse Rate 93 Respiratory Rate 18 Blood Pressure 130/65 H Blood Pressure Mean 86 Pulse Ox 94 Oxygen Delivery Method Room Air MDM MDM MDM Narrative Medical decision making narrative: Patient is having her typical back pain and restless leg pain. I have looked on her online prescribing report. It does verify that she has been getting regular narcotics. It does look like she has been getting these through a nurse practitioner from the [employer] [facility] that runs [facility]. Therefore I am suspicious that her story where they did not send her home with the Vicodin may in fact be true. I cannot verify this at this time and night. I will give her a short prescription for hydrocodone and I will give her a dose here. I explained that I cannot give more. She has an appointment with her pain management physician on Tuesday. Discharge Plan Triage Chief Complaint: Back Other Complaint: Lower Extremity Injury ED Provider: Stanley Puentes Dx/Rx/DC Orders Clinical Impression: Restless leg syndrome, Chronic back pain Instructions: ED Back Pain (Acute or Chronic) Prescriptions: New hydrocodone-acetaminophen [hydrocodone-acetaminophen] 5-325 mg tablet 1 tab PO Q6H PRN PRN (Reason: Pain) 3 Days Qty: 12 0RF No Action atorvastatin 80 mg tablet 80 mg PO QHS Qty: 90 3RF paroxetine HCl 20 mg tablet 20 mg PO DAILY Patient Comments: TAKE 1 TABLET BY MOUTH EVERY DAY IN THE EVENING gabapentin 300 mg capsule 100 mg TID Hold Instructions: Hold for today and start gabapentin 300 mg 1 capsule daily in the morning Patient Comments: TAKE 3 CAPSULES BY MOUTH THREE TIMES DAILY FOR 90 DAYS. carvedilol 12.5 mg Tablet 12.5 mg PO BID bupropion HCl 150 mg tablet extended release 24 hr 150 mg PO DAILY Patient Comments: TAKE 1 TABLET BY MOUTH EVERY DAY melatonin 5 mg Tablet 5 mg PO QHS albuterol sulfate 2.5 mg /3 mL (0.083 %) Solution For Nebulization 2.5 mg inhalation Q2H PRN PRN (Reason: Dyspnea, wheezing) Qty: 0 0RF sennosides-docusate sodium [Stool Softener-Stimulant Laxat] 8.6-50 mg Tablet 2 tab PO BID PRN PRN (Reason: Constipation) Qty: 0 0RF ascorbic acid (vitamin C) [Vitamin C] 500 mg Tablet 500 mg PO BID acetaminophen [Tylenol] 325 mg tablet 650 mg PO Q4H PRN PRN (Reason: pain or temperature) folic acid 400 mcg Tablet 400 mcg PO DAILY bumetanide 1 mg Tablet 1 mg PO BID hydralazine 50 mg Tablet 50 mg TID potassium chloride 20 mEq Tablet Extended Release 20 meq PO DAILY clopidogrel 75 mg tablet 75 mg PO DAILY pantoprazole 40 mg tablet,delayed release (DR/EC) 40 mg PO BIDCM ferrous sulfate 325 mg (65 mg iron) tablet 325 mg PO DAILY nystatin [Nyamyc] 100,000 unit/gram powder 1 applic topical BID Protocol: *Topical Application Instructions APPLICATION INSTRUCTIONS: vinicius area menthol-zinc oxide [Calmoseptine] 0.44-20.6 % ointment 1 applic topical TID Protocol: *Topical Application Instructions APPLICATION INSTRUCTIONS: buttocks Ted (with collagen) 7-7-1.5 gram powder in packet 1 packet PO BIDCM isosorbide dinitrate 10 mg Tablet 10 mg PO TID Qty: 0 0RF insulin lispro [Humalog KwikPen Insulin] 100 unit/mL Insulin Pen See Protocol subcut TIDAC Qty: 0 0RF Protocol: 1. Sliding Scale Insulin Low Dosing Condition: 150-224 mg/dl = 1 unit Condition: 225-299 mg/dl = 2 units Condition: 300-374 mg/dl = 3 units Condition: 375-499 mg/dl = 4 units Condition: Greater than 449 call physician Protocol Text: - Use for Total Daily Dose of Insulin 15-27 units - Thin, elderly, renal patients LOW DOSING ALGORITHM sodium bicarbonate 650 mg tablet 650 mg PO BID Qty: 30 0RF insulin glargine-yfgn 100 unit/mL (3 mL) insulin pen 5 unit subcut QHS Qty: 15 0RF Rx Instructions: Hold if glucose less than 130 mg/dl Primary Care Provider: Raúl Eric Referrals: Raúl Eric MD [Primary Care Provider] - Activity Restrictions/Additional Instructions: Follow up with your pain management physician on Tuesday as scheduled. Disposition Disposition: Home, Self Care
[2023-10-21 21:12] VITALS: BMI 26.9
[2023-10-21] MEDS: HYDROcodone Bitartrate/Apap 5/325 Tablet PO (21:48)
== END 2023-10-21 21:53 | disposition home or self-care (01) ==
PROVIDERS: Emergency Provider Emergency Medicine; PCP Family Medicine; Visit Provider Emergency Medicine
DX: G25.81 Restless legs syndrome (principal); Z99.2 Dependence on renal dialysis; E11.42 Type 2 diabetes mellitus with diabetic polyneuropathy; E11.22 Type 2 diabetes mellitus with diabetic chronic kidney disease; N18.4 Chronic kidney disease, stage 4 (severe); Z79.4 Long term (current) use of insulin; I12.9 Hypertensive chronic kidney disease with stage 1 through stage 4 chronic kidney disease, or unspecified chronic kidney disease; M54.9 Dorsalgia, unspecified; G89.29 Other chronic pain; I25.10 Atherosclerotic heart disease of native coronary artery without angina pectoris; Z79.02 Long term (current) use of antithrombotics/antiplatelets; Z79.899 Other long term (current) drug therapy
CPT/HCPCS: 99283

== ENCOUNTER 2023-10-23 14:59 | Emergency (ER) | payer MEDICARE, MEDICAID, SELFPAY ==
[2018-09-21 13:23] VITALS: BMI 29.3
[2023-10-23 15:02] VITALS: BP 191/96; PULSE 100; RESP 16; TEMP 36.3; O2SAT 98; BMI 13.2
--- NOTE | 2023-10-23 15:10 | ED.VIS.FALL ---
HPI HPI - Fall History of Present Illness Chief Complaint: Fall Informant: patient and EMS Occured/Mechanism Occurred: Today Narrative: fell out of her recliner Pain/Injury Pain Location: face (nose) Quality of Pain: Aching Current Severity: Severe Maximum Severity: Severe Narrative Narrative: 58-year-old patient states she fell asleep in her recliner this afternoon and fell out of it while she was sleeping, injuring her nose on the floor, resulting in bleeding from both sides of her nose. She denies any other pain or injury including headache, nausea, vomiting. She states she was prescribed sleeping pills from the [facility] that she recently was in but they will not let her have them, so she is not sleeping well at night and subsequently is having to nap during the day. She was seen here the night before last because of her chronic pain in her back that she has had since she had surgery a couple years ago, as well as her restless leg syndrome symptoms that she has had chronically. She received a short term prescription for Vicodin at the time of that visit. She has an appointment with a new pain management doctor apparently 2 days from now. Patient also states she did not take her blood pressure medication today because the other day her blood pressure was low. [facility] Medical History Acquired varus deformity of left foot Acquired varus deformity of right foot Acute lumbar radiculopathy Acute on chronic anemia Adult failure to thrive Amputation foot, bilat Anemia due to chronic illness Anemia in chronic illness Anxiety and depression Atherosclerosis of [place] coronary artery of [place] heart without angina pectoris Back pain, chronic Bilateral edema of lower extremity Cellulitis Cellulitis of both lower extremities Charcot's joint of right foot Charcot's joint, left ankle and foot Charcot's joint, right ankle and foot Chronic foot pain Chronic kidney disease, stage 3b Chronic kidney disease, stage 4 (severe) Chronic renal disease, stage 4, severely decreased glomerular filtration rate (GFR) between 15-29 mL/min/1.73 square meter Chronic renal insufficiency Chronic ulcer of left foot with fat layer exposed 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 Chronic ulcer of right foot with fat layer exposed Chronic ulcer of right foot with necrosis of bone Chronic ulcer of right foot with necrosis of muscle Chronic ulcer of right leg with fat layer exposed COVID-19 (08/28/21) CRF (chronic renal failure) Debility Delayed wound healing Diabetes Diabetes mellitus with diabetic polyneuropathy Diabetic foot ulcer associated with type 2 diabetes mellitus Diabetic foot ulcers Diabetic infection of left foot Diabetic polyneuropathy Diabetic ulcer of right ankle Elevated troponin End stage renal disease Essential (primary) hypertension Essential hypertension Foot osteomyelitis, left GERD (gastroesophageal reflux disease) Hemoglobin A1c greater than 9.0% HLD (hyperlipidemia) Hyperparathyroidism, secondary renal Hypertension Iron deficiency anemia Ischemic cardiomyopathy Myocardial infarct Non-compliance Non-pressure chronic ulcer of other part of left foot with fat layer exposed Non-pressure chronic 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 layer exposed Non-smoker Normocytic anemia NSTEMI (non-ST elevated myocardial infarction) (09/20/18) Obesity (BMI 30.0-34.9) Osteomyelitis Osteomyelitis of left foot Osteomyelitis of metatarsal RLS (restless legs syndrome) Stage 4 chronic kidney disease TIA (transient ischemic attack) Type 2 diabetes mellitus 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 Ulcer of left foot with fat layer exposed Ulcer of left foot with muscle involvement without evidence of necrosis Ulcer of left foot with necrosis of muscle Ulcer of right lower extremity with fat layer exposed Home Medications atorvastatin 80 mg tablet 80 mg PO QHS cholesterol #90 tabs 11/30/19 [Rx Last Taken 04/07/22] paroxetine HCl 20 mg tablet 20 mg PO DAILY DEPRESSION 07/07/21 [History Last Taken 04/07/22] gabapentin 300 mg capsule 100 mg TID nerve pain 12/23/21 [History Last Taken 04/07/22] bupropion HCl 150 mg 24 hr tablet, extended release 150 mg PO DAILY mood 02/04/22 [History Last Taken 04/07/22] carvedilol 12.5 mg tablet 12.5 mg PO BID heart 02/04/22 [History Last Taken 04/07/22] melatonin 5 mg tablet 5 mg PO QHS sleep 04/09/22 [History Last Taken 04/07/22] albuterol sulfate 2.5 mg/3 mL (0.083 %) solution for nebulization 2.5 mg (3 mL) inhalation Q2H PRN PRN Dyspnea, wheezing #0 mL 04/24/22 [Rx Last Taken Unknown] sennosides 8.6 mg-docusate sodium 50 mg tablet (Stool Softener-Stimulant Laxative) 2 tab PO BID PRN PRN Constipation #0 tabs 04/24/22 [Rx Last Taken Unknown] acetaminophen 325 mg tablet (Tylenol) 650 mg PO Q4H PRN PRN pain or temperature 05/05/22 [History Last Taken Unknown] ascorbic acid (vitamin C) 500 mg tablet (Vitamin C) 500 mg PO BID supplement 05/05/22 [History Last Taken Unknown] arginine 7 gram-glutam 7 gram-CaHMB 1.5 gjdz-fjjri-st-min oral pwd pkt (Ted (with collagen)) 1 packet PO BIDCM wound healing 07/19/22 [History Last Taken Unknown] bumetanide 1 mg tablet 1 mg PO BID water pill 07/19/22 [History Last Taken Unknown] clopidogrel 75 mg tablet 75 mg PO DAILY prevent stroke 07/19/22 [History Last Taken Unknown] ferrous sulfate 325 mg (65 mg iron) tablet 325 mg PO DAILY anemia 07/19/22 [History Last Taken Unknown] folic acid 400 mcg tablet 400 mcg PO DAILY supplement 07/19/22 [History Last Taken Unknown] hydralazine 50 mg tablet 50 mg TID blood pressure 07/19/22 [History Last Taken Unknown] menthol 0.44 %-zinc oxide 20.6 % topical ointment (Calmoseptine) 1 applic topical TID impaired skin integrity 07/19/22 [History Last Taken Unknown] nystatin 100,000 unit/gram topical powder (Nyamyc) 1 applic topical BID redness 07/19/22 [History Last Taken Unknown] pantoprazole 40 mg tablet,delayed release 40 mg PO BIDCM GERD 07/19/22 [History Last Taken Unknown] potassium chloride 20 mEq tablet,extended release 20 meq PO DAILY supplement 07/19/22 [History Last Taken Unknown] insulin glargine-yfgn 100 unit/mL (3 mL) subcutaneous pen 5 unit (0.05 mL) subcut QHS blood sugar #15 mL 07/21/22 [Rx Last Taken Unknown] insulin lispro 100 unit/mL subcutaneous pen (Humalog KwikPen (U-100) Insulin) See Protocol subcut TIDAC #0 mL 07/21/22 [Rx Last Taken Unknown] isosorbide dinitrate 10 mg tablet 10 mg PO TID #0 tabs 07/21/22 [Rx Last Taken Unknown] sodium bicarbonate 650 mg tablet 650 mg PO BID replacement #30 tabs 07/21/22 [Rx Last Taken Unknown] hydrocodone-acetaminophen 5-325mg 5mg-325mg 1 tab PO Q6H PRN PRN Pain 3 days #12 TABLETS 10/21/23 [Rx Last Taken Unknown] Allergy/AdvReac Type Severity Reaction Status Date / Time Penicillins Allergy swelling Verified 10/23/23 15:04 in throat vancomycin Allergy Itching Verified 10/23/23 15:04 metronidazole AdvReac Nausea Verified 10/23/23 15:04 oxycodone [From OxyContin] AdvReac Shortness Verified 10/23/23 15:04 of breath Family History Mother Diabetes CVA (cerebral vascular accident) Brother CAD (coronary artery disease) CABG X 3 Cancer testicular Diabetes Brother CAD (coronary artery disease) CABG X3 Diabetes Brother CAD (coronary artery disease) Stents Diabetes Sister CAD (coronary artery disease) CABG x 3 CVA (cerebral vascular accident) Diabetes Surgical History History of bilateral carpal tunnel release History of History of coronary artery stent placement (12/31/20) History of foot surgery History of rotator cuff surgery Social History household members: none number of children: 2 current occupational status: disabled Smoking Status: Never smoker alcohol intake: never substance use type: does not use caffeine: Yes Type: carbonated beverages Number of servings: 2 ROS ROS ED Constitutional Constitutional ED: Denies chills or fever(s) Eyes Eyes: Denies change in vision or diplopia ENT ENT ED: Reports epistaxis and facial pain; Denies ear pain or rhinorrhea Cardiovascular Cardiovascular: Denies chest pain or palpitations Respiratory/Chest Respiratory/Chest: Denies cough or dyspnea Gastrointestinal Gastrointestinal: Denies abdominal pain, diarrhea, melena, nausea or vomiting Genitourinary Genitourinary ED: Denies dysuria or hematuria Musculoskeletal Musculoskeletal: Reports back pain; Denies extremity pain or neck pain Integumentary Denies abscess, Abrasions, laceration or rash Neurologic Neurologic: Denies confusion, headache(s), paresthesias or weakness EXAM Physical Exam Const Vital Signs: 10/23/23 15:02 10/23/23 15:26 10/23/23 15:26 Temperature 97.3 F L Temperature Source Temporal Pulse Rate 100 87 Respiratory Rate 16 12 Respiratory Effort Normal Respiratory Depth Normal Respiratory Pattern Normal Blood Pressure 191/96 H 191/96 H Blood Pressure Mean 127 127 Pulse Ox 98 96 Oxygen Delivery Method Room Air Room Air Room Air 10/23/23 16:35 Temperature Temperature Source Pulse Rate 72 Respiratory Rate 15 Respiratory Effort Respiratory Depth Respiratory Pattern Blood Pressure 164/97 H Blood Pressure Mean 119 Pulse Ox 98 Oxygen Delivery Method Room Air Positive well nourished and well developed General Appearance ED: well developed and NAD HEENT Reports TM's clear and nasal mucous membranes and turbinates normal HEENT Narrative: Patient has tenderness at the very distal/caudal aspect of the nasal bone. There is no deformity. There is blood in the right naris more than the left, with no active bleeding and no posterior oropharyngeal or oral blood. There is no dental injury. No trismus. No mandible tenderness. There is mild maxillary tenderness right next of the nasal bone on both sides but no crepitance or signs of trauma there. The rest of the facial bones including the zygomatic arches and the frontal bone are nontender and atraumatic as is the rest of the head. She has no neck tenderness. Face and Sinus: facial tenderness Tympanic Membrane ED: Yes TM's clear Eyes PERRL and EOMs intact bilaterally Visual Acuity: other Other Details: no entrapment or pain with extraocular movements Neck full ROM and supple General: Negative for tenderness Chest Wall inspection of chest normal and palpation of chest normal Chest: symmetrical chest wall rise; Negative for crepitus or tenderness Resp normal respiratory effort and clear to auscultation bilaterally Percussion: other equal BS bilat Cardio no murmurs Rate: regular rate Rhythm: regular rhythm GI normal to inspection, nondistended, normoactive bowel sounds, soft to palpation and non-tender Back/Spine normal ROM Back/Spine Narrative: Mild tenderness throughout much of the thoracic spine where she states her chronic pain is. There is well-healed surgical scar throughout the thoracic and lumbar midlines. Cervical Spine: Negative for cervical spine tenderness Thoracic Spine / Upper Back: thoracic spinal tenderness Lumbar Spine / Lower Back: Negative for lumbar spinal tenderness Extremity normal to inspection and full ROM Extremity Narrative: Mild symmetric edema both lower extremities with a little erythema of the left one. This area is not indurated or tender. Full range of motion throughout all 4 extremities without discomfort in any joints. General Extremety ED: Negative for tenderness Neuro oriented x3, CN's II-XII intact bilaterally, moves all extremities, no focal motor deficits and no sensory deficits noted Avery Coma Scale: document GCS findings Spontaneous Obeys Commands Oriented 15 Sensorium / Orientation: awake and alert Psych mental status grossly normal and thought process normal Mood & Affect: anxious Skin no wounds Lesions: no lesions Rashes: no rashes MDM MDM MDM Narrative Medical decision making narrative: I am at a very low suspicion for significant or surgical facial fracture here. Certainly she could have a nasal fracture but I am at a low suspicion for that bone being fractured as well. Given this I do not think she needs the cost of the radiation of CT so I ordered facial films. 4 views on my interpretation negative for any evidence of nasal or other facial fracture. However, while tending to the epistaxis, I applied aerosolized Reji solution 1 cc to each nostril in addition to soaked pledgets anteriorly, had her blow her nose in order to try to evacuate all of the blood and clots, she was blowing quite a bit without significant pain, but started developing right periorbital edema as a result of this, suggesting the possibility of an occult facial fracture that may involve the orbit or sinus, or less likely, the skull base. Therefore I sent her back for CT of the head and facial bones. There is no acute intracranial abnormality, and there is fracture of the nasal septum along with accompanying soft tissue emphysema coming from the patient blowing her nose. I reviewed the images and the report which I agree with. Orbits look good. I advised patient not to blow her nose anymore since will probably cause more subcutaneous emphysema. She was reassured this will go away. On reevaluation she has no more active bleeding. Also there is no nasal septal hematoma or perforation. This is less likely to be surgical. We discussed what to do in case of recurrent nosebleed. She is to follow-up with otolaryngology as an outpatient. She is comfortable with that plan and going home. It is noted that the patient's blood counts less than 48 hours ago showed a hemoglobin of 7.6. She is a dialysis patient. Her blood loss today I estimate is minimal so I do not think we need to recheck those. She is not hypotensive or tachycardic to suggest that she had significant acute blood loss. Furthermore her blood pressure was elevated she did not take her medicine today, but on recheck it is more reasonable 160/97. Advised to go back on her medication and have this rechecked. History & Record Review Additional record(s) reviewed:: Prior ED visit and Prior labs Radiography Diagnostic Testing: Clinical Impression(s) from Imaging Studies Facial Bones X-Ray 10/23/23 15:42 IMPRESSION: Intact facial bones. Electronically Signed: Sterling Delcid MD at 16:05 EST , Brain CT 10/23/23 16:08 IMPRESSION: 1. No acute intracranial abnormality. 2. Chronic microvascular changes. 3. Acute nasal septal fractures associated with extensive soft tissue emphysema of the face and right orbit. Electronically Signed: Sterling Delcid MD at 16:57 EST , Facial/Sinus 10/23/23 16:08 IMPRESSION: 1. Acute nasal septal fracture. 2. Extensive soft tissue emphysema of the face and right orbit. Electronically Signed: Sterling Delcid MD at 16:55 EST , Procedures Other Procedures Procedure(s): epistaxis care: see above. Discharge Plan Triage Chief Complaint: Fall ED Provider: Shayne Castro Dx/Rx/DC Orders Clinical Impression: Accidental fall from chair, Nasal septum fracture, Acute anterior epistaxis Instructions: ED Nose Fracture, with X-Ray Prescriptions: No Action atorvastatin 80 mg tablet 80 mg PO QHS Qty: 90 3RF paroxetine HCl 20 mg tablet 20 mg PO DAILY Patient Comments: TAKE 1 TABLET BY MOUTH EVERY DAY IN THE EVENING gabapentin 300 mg capsule 100 mg TID Hold Instructions: Hold for today and start gabapentin 300 mg 1 capsule daily in the morning Patient Comments: TAKE 3 CAPSULES BY MOUTH THREE TIMES DAILY FOR 90 DAYS. carvedilol 12.5 mg Tablet 12.5 mg PO BID bupropion HCl 150 mg tablet extended release 24 hr 150 mg PO DAILY Patient Comments: TAKE 1 TABLET BY MOUTH EVERY DAY melatonin 5 mg Tablet 5 mg PO QHS albuterol sulfate 2.5 mg /3 mL (0.083 %) Solution For Nebulization 2.5 mg inhalation Q2H PRN PRN (Reason: Dyspnea, wheezing) Qty: 0 0RF sennosides-docusate sodium [Stool Softener-Stimulant Laxat] 8.6-50 mg Tablet 2 tab PO BID PRN PRN (Reason: Constipation) Qty: 0 0RF ascorbic acid (vitamin C) [Vitamin C] 500 mg Tablet 500 mg PO BID acetaminophen [Tylenol] 325 mg tablet 650 mg PO Q4H PRN PRN (Reason: pain or temperature) folic acid 400 mcg Tablet 400 mcg PO DAILY bumetanide 1 mg Tablet 1 mg PO BID hydralazine 50 mg Tablet 50 mg TID potassium chloride 20 mEq Tablet Extended Release 20 meq PO DAILY clopidogrel 75 mg tablet 75 mg PO DAILY pantoprazole 40 mg tablet,delayed release (DR/EC) 40 mg PO BIDCM ferrous sulfate 325 mg (65 mg iron) tablet 325 mg PO DAILY nystatin [Nyamyc] 100,000 unit/gram powder 1 applic topical BID Protocol: *Topical Application Instructions APPLICATION INSTRUCTIONS: vinicius area menthol-zinc oxide [Calmoseptine] 0.44-20.6 % ointment 1 applic topical TID Protocol: *Topical Application Instructions APPLICATION INSTRUCTIONS: buttocks Ted (with collagen) 7-7-1.5 gram powder in packet 1 packet PO BIDCM isosorbide dinitrate 10 mg Tablet 10 mg PO TID Qty: 0 0RF insulin lispro [Humalog KwikPen Insulin] 100 unit/mL Insulin Pen See Protocol subcut TIDAC Qty: 0 0RF Protocol: 1. Sliding Scale Insulin Low Dosing Condition: 150-224 mg/dl = 1 unit Condition: 225-299 mg/dl = 2 units Condition: 300-374 mg/dl = 3 units Condition: 375-499 mg/dl = 4 units Condition: Greater than 449 call physician Protocol Text: - Use for Total Daily Dose of Insulin 15-27 units - Thin, elderly, renal patients LOW DOSING ALGORITHM sodium bicarbonate 650 mg tablet 650 mg PO BID Qty: 30 0RF insulin glargine-yfgn 100 unit/mL (3 mL) insulin pen 5 unit subcut QHS Qty: 15 0RF Rx Instructions: Hold if glucose less than 130 mg/dl hydrocodone-acetaminophen [hydrocodone-acetaminophen] 5-325 mg tablet 1 tab PO Q6H PRN PRN (Reason: Pain) 3 Days Qty: 12 0RF Primary Care Provider: Raúl Eric Referrals: Benjamin Mendoza MD [Med Staff - Active Staff] - As soon as possible (call for appt) Raúl Eric MD [Primary Care Provider] - Activity Restrictions/Additional Instructions: Get any [id number] nasal decongestant spray containing oxymetazoline or phenylephrine. For moderate-severe nosebleed: 1 - gather supplies: nasal decongestant spray (above), cotton ball, box of tissues, garbage can, old towel that you can wrap around your chest/neck (to catch blood) 2 - soak a cotton ball in the nasal spray 3 - blow your nose, get all blood and clots out, keep chin down to prevent blood from going back into throat and forming clots 4 - after blowing the last time, quickly spray 2 sprays of the nasal spray into the affected side and sniff it back, immediately followed by twisting the soaked cotton ball into the front of your nose and then hold pressure with your fingers. 5 - if bleeding controlled, leave cotton ball in place for at least 20 min before checking to see if the bleeding is controlled by removing the cotton ball. If not able to control bleeding, always welcome to return to the ER for help. Disposition Disposition: Home, Self Care
[2023-10-23] MEDS: HYDROcodone Bitartrate/Apap 5/325 Tablet PO (15:18)
[2023-10-23] MEDS: Mixture 30 ML Bottle 5 ML TOPICAL (15:19)
[2023-10-23 15:26] VITALS: BP 191/96; PULSE 87; RESP 12; O2SAT 96
--- NOTE | 2023-10-23 15:42 | RAD_ITS ---
EXAM: XR FACE COMPLETE, 3 OR MORE VIEWS CLINICAL INDICATION: injury TECHNIQUE: Frontal, lateral and oblique views of the face. COMPARISON: No relevant prior studies available. FINDINGS: BONES/JOINTS: No acute abnormality. SINUSES: No acute findings. SOFT TISSUES: Normal. No soft tissue swelling or gas. No radiopaque foreign body. RAD/Facial Bones min 3 Views IMPRESSION: Intact facial bones. Electronically Signed: Sterling Delcid MD at 16:05 EST ,
--- NOTE | 2023-10-23 16:08 | CT_ITS ---
EXAM: CT MAXILLOFACIAL WITHOUT INTRAVENOUS CONTRAST CLINICAL INDICATION: trauma TECHNIQUE: Helically acquired images were obtained of the face without intravenous contrast. This CT exam was performed using one or more of the following dose reduction techniques: automated exposure control, adjustment of the mA and/or kV according to patient size, and/or use of iterative reconstruction technique. COMPARISON: No relevant prior studies available. FINDINGS: BONES/JOINTS: Acute nasal septal fracture is identified. Nasal arch appears intact as do the remainder of the facial bones and orbits. SOFT TISSUES: Extensive soft tissue emphysema involves both sides of the face and preseptal portion of the right orbit. No focal subcutaneous swelling. No discrete fluid collections. ORBITS: See above. SINUSES: Unremarkable as visualized. No acute sinusitis. MASTOID AIR CELLS: Unremarkable as visualized. Clear. NASAL CAVITY/SEPTUM: Small amount of fluid noted along the inferior nasal turbinates bilaterally. CT/Sinus/Facial Bone IMPRESSION: 1. Acute nasal septal fracture. 2. Extensive soft tissue emphysema of the face and right orbit. Electronically Signed: Sterling Delcid MD at 16:55 EST ,
--- NOTE | 2023-10-23 16:08 | CT_ITS ---
EXAM: CT HEAD WITHOUT INTRAVENOUS CONTRAST CLINICAL INDICATION: trauma TECHNIQUE: Multiple axial images were obtained of the head without intravenous contrast. This CT exam was performed using one or more of the following dose reduction techniques: automated exposure control, adjustment of the mA and/or kV according to patient size, and/or use of iterative reconstruction technique. COMPARISON: No relevant prior studies available. FINDINGS: BRAIN AND EXTRA-AXIAL SPACES: Encephalomalacic changes of the right occipital lobe related to chronic infarct. No hemorrhage or mass effect. No acute ischemia. Areas of diminished white matter density noted within both cerebral hemispheres suggestive of chronic microvascular change. Prominence of the cortical sulci and ventricles related to volume loss change. BONES/JOINTS: Prominent soft tissue emphysema of the face again noted. Fractures of the nasal septum again seen. SINUSES: Minimal fluid noted within the right sphenoid sinus and minimal fluid or mucosal thickening within the right maxillary sinus. MASTOID AIR CELLS: Normal. Clear. CT/Brain/Head without Contrast IMPRESSION: 1. No acute intracranial abnormality. 2. Chronic microvascular changes. 3. Acute nasal septal fractures associated with extensive soft tissue emphysema of the face and right orbit. Electronically Signed: Sterling Delcid MD at 16:57 EST ,
[2023-10-23 16:35] VITALS: BP 164/97; PULSE 72; RESP 15; O2SAT 98
[2023-10-23 17:28] VITALS: BP 157/84
== END 2023-10-23 17:45 | disposition home or self-care (01) ==
PROVIDERS: Emergency Provider Emergency Medicine; PCP Family Medicine; Visit Provider Emergency Medicine
DX: S02.2XXA Fracture of nasal bones, initial encounter for closed fracture (principal); Z99.2 Dependence on renal dialysis; E11.42 Type 2 diabetes mellitus with diabetic polyneuropathy; E11.22 Type 2 diabetes mellitus with diabetic chronic kidney disease; N18.4 Chronic kidney disease, stage 4 (severe); Z79.4 Long term (current) use of insulin; R04.0 Epistaxis; G25.81 Restless legs syndrome; M54.9 Dorsalgia, unspecified; G89.29 Other chronic pain; W07.XXXA Fall from chair, initial encounter; I12.9 Hypertensive chronic kidney disease with stage 1 through stage 4 chronic kidney disease, or unspecified chronic kidney disease; I25.10 Atherosclerotic heart disease of native coronary artery without angina pectoris; E78.5 Hyperlipidemia, unspecified; Z79.02 Long term (current) use of antithrombotics/antiplatelets; Z79.899 Other long term (current) drug therapy
CPT/HCPCS: 70150; 70450; 70486; 99282

== ENCOUNTER 2023-10-24 21:34 | Emergency (ER) | payer MEDICARE, MEDICAID, SELFPAY ==
[2018-09-21 13:23] VITALS: BMI 29.3
[2023-10-24 21:49] VITALS: BP 97/53; PULSE 88; RESP 18; TEMP 36.3; O2SAT 100
--- NOTE | 2023-10-24 22:24 | EDS_ITS ---
HPI History of Present Illness Chief Complaint: Hyperglycemia Informant: patient Narrative Narrative: Patient is a 58-year-old female with past medical history of end-stage renal disease on dialysis. She also has a past medical history of insulin-dependent diabetes. Reportedly the patient had a blood sugar of 400 and therefore took 8 units of insulin but secondary to the elevated blood sugar there was concern for infection and she was sent in for evaluation [facility] Medical History Acquired varus deformity of left foot Acquired varus deformity of right foot Acute lumbar radiculopathy Acute on chronic anemia Adult failure to thrive Amputation foot, bilat Anemia due to chronic illness Anemia in chronic illness Anxiety and depression Atherosclerosis of marshall coronary artery of marshall heart without angina pectoris Back pain, chronic Bilateral edema of lower extremity Cellulitis Cellulitis of both lower extremities Charcot's joint of right foot Charcot's joint, left ankle and foot Charcot's joint, right ankle and foot Chronic foot pain Chronic kidney disease, stage 3b Chronic kidney disease, stage 4 (severe) Chronic renal disease, stage 4, severely decreased glomerular filtration rate (GFR) between 15-29 mL/min/1.73 square meter Chronic renal insufficiency Chronic ulcer of left foot with fat layer exposed 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 Chronic ulcer of right foot with fat layer exposed Chronic ulcer of right foot with necrosis of bone Chronic ulcer of right foot with necrosis of muscle Chronic ulcer of right leg with fat layer exposed COVID-19 (08/28/21) CRF (chronic renal failure) Debility Delayed wound healing Diabetes Diabetes mellitus with diabetic polyneuropathy Diabetic foot ulcer associated with type 2 diabetes mellitus Diabetic foot ulcers Diabetic infection of left foot Diabetic polyneuropathy Diabetic ulcer of right ankle Elevated troponin End stage renal disease Essential (primary) hypertension Essential hypertension Foot osteomyelitis, left GERD (gastroesophageal reflux disease) Hemoglobin A1c greater than 9.0% HLD (hyperlipidemia) Hyperparathyroidism, secondary renal Hypertension Iron deficiency anemia Ischemic cardiomyopathy Myocardial infarct Non-compliance Non-pressure chronic ulcer of other part of left foot with fat layer exposed Non-pressure chronic 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 layer exposed Non-smoker Normocytic anemia NSTEMI (non-ST elevated myocardial infarction) (09/20/18) Obesity (BMI 30.0-34.9) Osteomyelitis Osteomyelitis of left foot Osteomyelitis of metatarsal RLS (restless legs syndrome) Stage 4 chronic kidney disease TIA (transient ischemic attack) Type 2 diabetes mellitus 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 Ulcer of left foot with fat layer exposed Ulcer of left foot with muscle involvement without evidence of necrosis Ulcer of left foot with necrosis of muscle Ulcer of right lower extremity with fat layer exposed Home Medications atorvastatin 80 mg tablet 80 mg PO QHS cholesterol #90 tabs 11/30/19 [Rx Last Taken 04/07/22] paroxetine HCl 20 mg tablet 20 mg PO DAILY DEPRESSION 07/07/21 [History Last Taken 04/07/22] gabapentin 300 mg capsule 100 mg TID nerve pain 12/23/21 [History Last Taken 04/07/22] bupropion HCl 150 mg 24 hr tablet, extended release 150 mg PO DAILY mood 02/04/22 [History Last Taken 04/07/22] carvedilol 12.5 mg tablet 12.5 mg PO BID heart 02/04/22 [History Last Taken 04/07/22] melatonin 5 mg tablet 5 mg PO QHS sleep 04/09/22 [History Last Taken 04/07/22] albuterol sulfate 2.5 mg/3 mL (0.083 %) solution for nebulization 2.5 mg (3 mL) inhalation Q2H PRN PRN Dyspnea, wheezing #0 mL 04/24/22 [Rx Last Taken Unknown] sennosides 8.6 mg-docusate sodium 50 mg tablet (Stool Softener-Stimulant Laxative) 2 tab PO BID PRN PRN Constipation #0 tabs 04/24/22 [Rx Last Taken Unknown] acetaminophen 325 mg tablet (Tylenol) 650 mg PO Q4H PRN PRN pain or temperature 05/05/22 [History Last Taken Unknown] ascorbic acid (vitamin C) 500 mg tablet (Vitamin C) 500 mg PO BID supplement 05/05/22 [History Last Taken Unknown] arginine 7 gram-glutam 7 gram-CaHMB 1.5 nsli-osmms-di-min oral pwd pkt (Ted (with collagen)) 1 packet PO BIDCM wound healing 07/19/22 [History Last Taken Unknown] bumetanide 1 mg tablet 1 mg PO BID water pill 07/19/22 [History Last Taken Unknown] clopidogrel 75 mg tablet 75 mg PO DAILY prevent stroke 07/19/22 [History Last Taken Unknown] ferrous sulfate 325 mg (65 mg iron) tablet 325 mg PO DAILY anemia 07/19/22 [History Last Taken Unknown] folic acid 400 mcg tablet 400 mcg PO DAILY supplement 07/19/22 [History Last Taken Unknown] hydralazine 50 mg tablet 50 mg TID blood pressure 07/19/22 [History Last Taken Unknown] menthol 0.44 %-zinc oxide 20.6 % topical ointment (Calmoseptine) 1 applic topi jose TID impaired skin integrity 07/19/22 [History Last Taken Unknown] nystatin 100,000 unit/gram topical powder (Nyamyc) 1 applic topical BID redness 07/19/22 [History Last Taken Unknown] pantoprazole 40 mg tablet,delayed release 40 mg PO BIDCM GERD 07/19/22 [History Last Taken Unknown] potassium chloride 20 mEq tablet,extended release 20 meq PO DAILY supplement 07/19/22 [History Last Taken Unknown] insulin glargine-yfgn 100 unit/mL (3 mL) subcutaneous pen 5 unit (0.05 mL) subcut QHS blood sugar #15 mL 07/21/22 [Rx Last Taken Unknown] insulin lispro 100 unit/mL subcutaneous pen (Humalog KwikPen (U-100) Insulin) See Protocol subcut TIDAC #0 mL 07/21/22 [Rx Last Taken Unknown] isosorbide dinitrate 10 mg tablet 10 mg PO TID #0 tabs 07/21/22 [Rx Last Taken Unknown] sodium bicarbonate 650 mg tablet 650 mg PO BID replacement #30 tabs 07/21/22 [Rx Last Taken Unknown] hydrocodone-acetaminophen 5-325mg 5mg-325mg 1 tab PO Q6H PRN PRN Pain 3 days #12 TABLETS 10/21/23 [Rx Last Taken Unknown] clindamycin HCl 300 mg capsule 300 mg PO 4X/DAY 10 days #40 caps 10/25/23 [Rx Last Taken Unknown] gabapentin 100 mg capsule 100 mg PO TID 10 days #30 caps 10/25/23 [Rx Last Taken Unknown] Allergy/AdvReac Type Severity Reaction Status Date / Time Penicillins Allergy swelling Verified 10/24/23 21:41 in throat vancomycin Allergy Itching Verified 10/24/23 21:41 metronidazole AdvReac Nausea Verified 10/24/23 21:41 oxycodone [From OxyContin] AdvReac Shortness Verified 10/24/23 21:41 of breath Family History Mother Diabetes CVA (cerebral vascular accident) Brother CAD (coronary artery disease) CABG X 3 Cancer testicular Diabetes Brother CAD (coronary artery disease) CABG X3 Diabetes Brother CAD (coronary artery disease) Stents Diabetes Sister CAD (coronary artery disease) CABG x 3 CVA (cerebral vascular accident) Diabetes Surgical History History of bilateral carpal tunnel release History of History of coronary artery stent placement (12/31/20) History of foot surgery History of rotator cuff surgery Social History household members: none number of children: 2 current occupational status: disabled Smoking Status: Never smoker alcohol intake: never substance use type: does not use caffeine: Yes Type: carbonated beverages Number of servings: 2 ROS ROS ED Constitutional Constitutional ED: Denies chills or fever(s) ENT ENT ED: Denies sore throat Cardiovascular Cardiovascular: Denies chest pain Respiratory/Chest Respiratory/Chest: Denies cough or dyspnea Gastrointestinal Gastrointestinal: Denies abdominal pain, diarrhea, nausea or vomiting Genitourinary Genitourinary ED: Denies dysuria Musculoskeletal Musculoskeletal: Reports back pain; Denies myalgias Integumentary Denies rash Neurologic Neurologic: Denies headache(s) Hematologic/Lymphatic Hematologic/Lymphatic: Denies easy bleeding or easy bruising EXAM Physical Exam Const Vital Signs: 10/24/23 21:49 10/24/23 22:28 10/24/23 23:09 Temperature 97.3 F L Temperature Source Temporal Pulse Rate 88 86 Respiratory Rate 18 16 Respiratory Effort Normal Non-Labored Respiratory Pattern Normal Blood Pressure 97/53 L 98/57 L Blood Pressure Mean 67 70 Pulse Ox 100 94 Oxygen Delivery Method Room Air Room Air 10/24/23 23:39 10/25/23 00:30 10/25/23 03:03 Temperature Temperature Source Pulse Rate 84 84 87 Respiratory Rate 20 H 18 16 Respiratory Effort Respiratory Pattern Blood Pressure 98/54 L 106/58 L 105/72 Blood Pressure Mean 68 74 83 Pulse Ox 97 92 97 Oxygen Delivery Method Room Air Room Air Positive well nourished and well developed General Appearance ED: well developed HEENT Reports dry mucous membranes HEENT Narrative: No signs of infection noted in the posterior pharynx Mouth ED: Yes dry mucous membranes Mouth: dry mucous membranes Eyes PERRL and EOMs intact bilaterally General Eye ED: Negative for scleral icterus Neck supple Neck Narrative: No nuchal rigidity or meningeal signs noted Chest Wall Chest Narrative: Dialysis catheter present in the right chest wall without secondary soft tissue changes to suggest infection Resp normal respiratory effort and clear to auscultation bilaterally Cardio regular rate and regular rhythm GI normal to inspection, nondistended, normoactive bowel sounds, non-tender, non- distended and no masses GI Narrative: No voluntary guarding or rigidity or pulsatile mass Auscultation: normoactive bowel sounds Palpation: soft Extremity Extremity Narrative: Left lower extremity has asymmetric erythema and soft tissue swelling from the dorsum of the foot up to the mid ruiz that is circumferential in nature. Patient does have superficial abrasion along the posterior calf which correlates with her fall from the other day. There is no obvious bony deformity or crepitus palpated The right lower leg is cool compared to the left without secondary swelling or overlying erythema. Capillary refill is at 3 seconds bilaterally. The Doppler was used and there is a strong posterior tibial and dorsalis pedis pulse bilaterally. Neuro oriented x3, CN's II-XII intact bilaterally and no sensory deficits noted Sensorium / Orientation: alert Motor Exam: strength 5/5 throughout Psych mental status grossly normal Skin Skin Narrative: Soft tissue changes of erythema swelling and warmth of the left lower leg as documented above MDM MDM MDM Narrative Medical decision making narrative: Patient arrived to the ER afebrile but reported elevated blood sugar at home and is a diabetic so therefore there is concern for DKA or potential secondary infection causing the elevation. On exam she has asymmetric redness and swelling of the left lower leg and recent trauma with abrasions to the posterior calf concerning for cellulitis versus osteomyelitis. As the patient has equal dorsalis pedis pulses on Doppler and capillary refill is essentially equal my concern for arterial occlusion is low and do not feel need for a CTA. With concern for DKA patient blood work was obtained along with a venous blood gas and the patient is not acidotic with a pH of 7.4. Lab work shows no drop to her bicarb either and her lactic acid is also normal. X-rays also reveal no obvious signs of osteomyelitis. Therefore at this time as patient is not in DKA based on her laboratory findings x-rays do not show changes concerning for osteomyelitis and by using the Doppler machine patient has equal pulses going against acute arterial occlusion I do not feel there is need for admission and she can be placed on antibiotics and discharged home History & Record Review Discussion w/independent historian: Patient Lab Data Attestation: I reviewed the patient's lab results. Labs: Laboratory Results - last 24 hr 10/24/23 10/24/23 10/24/23 22:16 22:30 22:59 WBC 7.6 RBC 4.20 Hgb 12.4 Hct 40.2 MCV 95.7 MCH 29.5 MCHC 30.8 L RDW Std Deviation 50.3 H RDW Coeff of Fior 14.5 Plt Count 226 MPV 10.2 Immature Gran % (Auto) 0.500 Neut % (Auto) 75.2 H Lymph % (Auto) 14.3 L Ray % (Auto) 6.9 Eos % (Auto) 2.4 Baso % (Auto) 0.7 Absolute Neuts (auto) 5.7 Absolute Lymphs (auto) 1.08 Nucleated RBC % 0 Sodium 144 Potassium 4.3 Chloride 107 Carbon Dioxide 29.0 Anion Gap 8 BUN 56 H Creatinine 4.38 H Est GFR (MDRD) Af Amer 13 L Est GFR (MDRD) Non-Af 11 L BUN/Creatinine Ratio 12.8 Glucose 101 Lactic Acid 1.8 Calcium 9.1 Procalcitonin 0.28 H POC Glucose 104 10/24/23 10/25/23 23:33 00:31 WBC RBC Hgb Hct MCV MCH MCHC RDW Std Deviation RDW Coeff of Fior Plt Count MPV Immature Gran % (Auto) Neut % (Auto) Lymph % (Auto) Ray % (Auto) Eos % (Auto) Baso % (Auto) Absolute Neuts (auto) Absolute Lymphs (auto) Nucleated RBC % Sodium Potassium Chloride Carbon Dioxide Anion Gap BUN Creatinine Est GFR (MDRD) Af Amer Est GFR (MDRD) Non-Af BUN/Creatinine Ratio Glucose Lactic Acid Calcium Procalcitonin POC Glucose 91 123 H ABG Data ABG results: ABG 10/24/23 23:12 Specimen Type SHAUN Sample Site Not entered VBG pH 7.41 VBG pO2 48 H VBG HCO3 29 H VBG Total CO2 30 VBG O2 Sat (Calc) 83 H VBG Base Excess 4 H POC Mix VBG pCO2 Pt Tmp 45.5 O2 Delivery Device Not entered Radiography Diagnostic Testing: Clinical Impression(s) from Imaging Studies Tibia/Fibula X-Ray 10/24/23 22:38 IMPRESSION: Diffuse osteopenia with no acute fracture or bony lesion seen. Osteomyelitis cannot be excluded based on negative plane film findings. If this represents a clinical concern, recommend dedicated bone scan or MRI in nonacute setting. Electronically Signed: Debby Whipple MD at 23:29 EST , Foot X-Ray 10/24/23 23:06 IMPRESSION: Fracture involving the second and third metatarsal heads of indeterminate age. Possible acute fracture of the base of the first metatarsal bone. Question healing fracture of the proximal phalanx of the first toe. Status post amputation of the fifth metacarpal bone. Diffuse osteoporosis. Diffuse soft tissue swelling as described, etiology indeterminate. Osteomyelitis cannot be excluded based on negative plane. Findings. If this represents a clinical concern, recommend dedicated bone scan or MRI in nonacute setting. Electronically Signed: Debby Whipple MD at 23:28 EST , ADDENDUM: 10/24/23 1907 IMPRESSION: undefined X-ray of the left tibia/fibula and foot as interpreted by the emergency medicine physician reveal questionable bony fractures of the foot and osteopenia without obvious moth-eaten appearance to suggest osteomyelitis Discharge Plan Triage Chief Complaint: Hyperglycemia ED Provider: Sergio John Dx/Rx/DC Orders Clinical Impression: Cellulitis of left leg, Chronic back pain, Insulin dependent diabetes mellitus, End stage renal disease on dialysis Instructions: Cellulitis Dc Prescriptions: New clindamycin HCl 300 mg capsule 300 mg PO 4X/DAY 10 Days Qty: 40 0RF gabapentin 100 mg capsule 100 mg PO TID 10 Days Qty: 30 0RF No Action atorvastatin 80 mg tablet 80 mg PO QHS Qty: 90 3RF paroxetine HCl 20 mg tablet 20 mg PO DAILY Patient Comments: TAKE 1 TABLET BY MOUTH EVERY DAY IN THE EVENING gabapentin 300 mg capsule 100 mg TID Hold Instructions: Hold for today and start gabapentin 300 mg 1 capsule daily in the morning Patient Comments: TAKE 3 CAPSULES BY MOUTH THREE TIMES DAILY FOR 90 DAYS. carvedilol 12.5 mg Tablet 12.5 mg PO BID bupropion HCl 150 mg tablet extended release 24 hr 150 mg PO DAILY Patient Comments: TAKE 1 TABLET BY MOUTH EVERY DAY melatonin 5 mg Tablet 5 mg PO QHS albuterol sulfate 2.5 mg /3 mL (0.083 %) Solution For Nebulization 2.5 mg inhalation Q2H PRN PRN (Reason: Dyspnea, wheezing) Qty: 0 0RF sennosides-docusate sodium [Stool Softener-Stimulant Laxat] 8.6-50 mg Tablet 2 tab PO BID PRN PRN (Reason: Constipation) Qty: 0 0RF ascorbic acid (vitamin C) [Vitamin C] 500 mg Tablet 500 mg PO BID acetaminophen [Tylenol] 325 mg tablet 650 mg PO Q4H PRN PRN (Reason: pain or temperature) folic acid 400 mcg Tablet 400 mcg PO DAILY bumetanide 1 mg Tablet 1 mg PO BID hydralazine 50 mg Tablet 50 mg TID potassium chloride 20 mEq Tablet Extended Release 20 meq PO DAILY clopidogrel 75 mg tablet 75 mg PO DAILY pantoprazole 40 mg tablet,delayed release (DR/EC) 40 mg PO BIDCM ferrous sulfate 325 mg (65 mg iron) tablet 325 mg PO DAILY nystatin [Nyamyc] 100,000 unit/gram powder 1 applic topical BID Protocol: *Topical Application Instructions APPLICATION INSTRUCTIONS: vinicius area menthol-zinc oxide [Calmoseptine] 0.44-20.6 % ointment 1 applic topical TID Protocol: *Topical Application Instructions APPLICATION INSTRUCTIONS: buttocks Ted (with collagen) 7-7-1.5 gram powder in packet 1 packet PO BIDCM isosorbide dinitrate 10 mg Tablet 10 mg PO TID Qty: 0 0RF insulin lispro [Humalog KwikPen Insulin] 100 unit/mL Insulin Pen See Protocol subcut TIDAC Qty: 0 0RF Protocol: 1. Sliding Scale Insulin Low Dosing Condition: 150-224 mg/dl = 1 unit Condition: 225-299 mg/dl = 2 units Condition: 300-374 mg/dl = 3 units Condition: 375-499 mg/dl = 4 units Condition: Greater than 449 call physician Protocol Text: - Use for Total Daily Dose of Insulin 15-27 units - Thin, elderly, renal patients LOW DOSING ALGORITHM sodium bicarbonate 650 mg tablet 650 mg PO BID Qty: 30 0RF insulin glargine-yfgn 100 unit/mL (3 mL) insulin pen 5 unit subcut QHS Qty: 15 0RF Rx Instructions: Hold if glucose less than 130 mg/dl hydrocodone-acetaminophen [hydrocodone-acetaminophen] 5-325 mg tablet 1 tab PO Q6H PRN PRN (Reason: Pain) 3 Days Qty: 12 0RF Primary Care Provider: Raúl Eric Referrals: Raúl Eric MD [Primary Care Provider] - Activity Restrictions/Additional Instructions: Your exam is consistent with cellulitis but it does not appear to be affecting the bone or into your bloodstream. Take the antibiotics as directed to help resolve the infection and return to the ER should you have any further concerns or worsening of symptoms Disposition Disposition: Home, Self Care Discharge Date/Time: 10/25/23 03:31 Capacity Legal Grey Inspector Reflex Medical hold order details:: IF a medical hold is selected below, a suggested order for a MEDICAL HOLD will reflex upon signing the document. Next of kin: [place] law dictates a PRIORITY LIST for identifying legal decision-maker/legal next of kin in the following order (LNOK): 1st: The patient?s legal guardian, if any 2nd: The patient's spouse (if status is questionable, consult Risk Management) 3rd: The patient?s adult child(sandra) (majority, if multiple children) 4th: The patient?s parents 5th: The patient?s adult siblings (majority, if multiple children siblings)
[2023-10-24 22:35] LABS: Bedside Glucose 104 mg/dL (74-106)
--- NOTE | 2023-10-24 22:38 | RAD_ITS ---
STUDY: X-RAY - LEFT TIBIA AND FIBULA REASON FOR EXAM: Female, 58 years old. ? osteo TECHNIQUE: view(s) of the tibia and fibula were obtained. COMPARISON: None. FINDINGS: Diffuse osteopenia, otherwise normal visualized tibia. Normal visualized fibula. There is no demonstrated acute fracture. No distinct lesion. Diffuse nonspecific soft tissue swelling. RAD/Tibia & Fibula 2 Views IMPRESSION: Diffuse osteopenia with no acute fracture or bony lesion seen. Osteomyelitis cannot be excluded based on negative plane film findings. If this represents a clinical concern, recommend dedicated bone scan or MRI in nonacute setting. Electronically Signed: Debby Whipple MD at 23:29 EST ,
[2023-10-24 22:40] LABS: Absolute Lymphocyte Count 1.08 X10^3/uL (0.83-4.51); Absolute Neutrophil Count 5.7 X10^3/uL (2.0-7.7); Basophil# 0.05 X10^3/uL; Basophil% 0.7 % (0-1); Eosinophil# 0.18 X10^3/uL; Eosinophils% 2.4 % (0-5); Hematocrit 40.2 % (37-47); Hemoglobin 12.4 g/dL (12.0-15.0); Lymphocyte # 1.08 X10^3/ul (0.83-4.51); Lymphocyte % 14.3 % (19-41); Mean Corp Hgb Conc 30.8 g/dL (32-36); Mean Corpuscular Hgb 29.5 pg (27.0-32.0); Mean Corpuscular Volume 95.7 fL (81-99); Mean Platelet Vol. 10.2 fl (6.2-12.0); Monocyte# 0.52 X10^3/uL; Monocyte% 6.9 % (0-10); NRBC Flagged by Analyzer 0 % (0-5); Neutrophil % 75.2 % (47-70); Platelet Count 226 K/mm3 (150-450); RBC Distribution Width CV 14.5 % (11.6-14.6); RBC Distribution Width SD 50.3 fl (35.1-43.9); White Blood Count 7.6 K/mm3 (4.4-11.0)
[2023-10-24 22:56] LABS: Anion Gap 8 (5-15); BUN 56 mg/dL (7-18); BUN/Creat Ratio 12.8 RATIO (10-20); Calcium,Total 9.1 mg/dL (8.5-10.1); Chloride 107 mmol/L (98-107); Creatinine, Serum 4.38 mg/dL (0.55-1.02); EST Glomerular Filtration Rate 11 mL/min (>60); Est Glom Filt Rate - Afr Amer 13 mL/min (>60); Glucose 101 mg/dL (74-106); Potassium 4.3 mmol/L (3.5-5.1); Sodium Level 144 mmol/L (136-145)
--- NOTE | 2023-10-24 23:06 | RAD_ITS ---
STUDY: X-RAY - LEFT FOOT CLINICAL: Female, 58 years old. ? osteo TECHNIQUE: 3 view(s) of the foot. COMPARISON: None. FINDINGS: Diffuse osteoporosis. Otherwise normal talus, calcaneus, and tarsal bones. Normal visualized subtalar, talonavicular, calcaneocuboid, tarsal and tarsometatarsal articulations. Status post amputation of the fifth metatarsal bone.There are fractures involving the second and third tarsal heads of exact age indeterminate and possibly acute. There is a fracture involving the first metatarsal base with cortical step-off suggestive of acute fracture. Normal metatarsophalangeal joint of the great toe. Normal tibial and fibular sesamoid bones. Normal interphalangeal joint of the great toe. Irregularity with increased sclerosis through the proximal phalanx of the first toe suggestive of sequela of healing fracture. Normal second through fifth metatarsophalangeal joints. Normal interphalangeal joints and phalanges of the lesser toes. Extensive soft tissue swelling through the dorsum of the foot. RAD/Foot min 3 Views IMPRESSION: Fracture involving the second and third metatarsal heads of indeterminate age. Possible acute fracture of the base of the first metatarsal bone. Question healing fracture of the proximal phalanx of the first toe. Status post amputation of the fifth metacarpal bone. Diffuse osteoporosis. Diffuse soft tissue swelling as described, etiology indeterminate. Osteomyelitis cannot be excluded based on negative plane. Findings. If this represents a clinical concern, recommend dedicated bone scan or MRI in nonacute setting. Electronically Signed: Debby Whipple MD at 23:28 EST ,
[2023-10-24 23:08] LABS: Procalcitonin 0.28 ng/mL (0.00-0.09)
[2023-10-24 23:09] VITALS: BP 98/57; PULSE 86; RESP 16; O2SAT 94
[2023-10-24 23:16] LABS: Blood Gas Specimen Type VEN; O2 Delivery Device Not entered; SITE Not entered; VBG BASE EXCESS 4 mmol/L (-1.0-3.5); VBG Bicarbonate 29 mmol/L (22-26); VBG PO2 48 mmHg (25-40); VBG SO2 83 % (50-70); VBG TCO2 30 mmol/L (23-33); VBG pCO2 45.5 mmHg (41-51); VBG pH 7.41 (7.32-7.42)
[2023-10-24 23:35] LABS: Lactic Acid 1.8 mmol/L (0.4-1.9)
[2023-10-24] MEDS: Clindamycin 900 MG/50 ML BAG 75 MG IV (23:35)
[2023-10-24 23:39] VITALS: BP 98/54; PULSE 84; RESP 20; O2SAT 97
[2023-10-25 00:29] LABS: Bedside Glucose 91 mg/dL (74-106)
[2023-10-25 00:30] VITALS: BP 106/58; PULSE 84; RESP 18; O2SAT 92
[2023-10-25 00:49] LABS: Bedside Glucose 123 mg/dL (74-106)
[2023-10-25] MEDS: levoFLOXacin IV 750 MG/150 ML BAG 100 MG IV (00:50)
[2023-10-25] MEDS: Gabapentin 100 MG Capsule PO (01:51)
[2023-10-25 03:03] VITALS: BP 105/72; PULSE 87; RESP 16; O2SAT 97
== END 2023-10-25 03:31 | disposition home or self-care (01) ==
PROVIDERS: Emergency Provider Emergency Medicine; PCP Family Medicine; Visit Provider Emergency Medicine
DX: L03.116 Cellulitis of left lower limb (principal); Z99.2 Dependence on renal dialysis; E11.65 Type 2 diabetes mellitus with hyperglycemia; E11.22 Type 2 diabetes mellitus with diabetic chronic kidney disease; E11.42 Type 2 diabetes mellitus with diabetic polyneuropathy; N18.6 End stage renal disease; I12.0 Hypertensive chronic kidney disease with stage 5 chronic kidney disease or end stage renal disease; Z79.4 Long term (current) use of insulin; S80.812A Abrasion, left lower leg, initial encounter; X58.XXXA Exposure to other specified factors, initial encounter; I25.10 Atherosclerotic heart disease of native coronary artery without angina pectoris; G89.29 Other chronic pain; M54.9 Dorsalgia, unspecified; Z79.899 Other long term (current) drug therapy
CPT/HCPCS: 73590; 73630; 80048; 82803; 82962; 83605; 84145; 85025; 87040; 96365; 96366; 96367; 99283; J7050; A4216

== ENCOUNTER → 2023-10-25 | Outpatient (CLI) | payer MEDICARE, MEDICAID, SELFPAY ==
[2018-09-21 13:23] VITALS: BMI 29.3
--- NOTE | 2023-10-25 11:22 | RAD_ITS ---
STUDY: X-RAY - THORACIC SPINE REASON FOR EXAM: Female, 58 years old. Postlaminectomy syndrome, not elsewhere classified TECHNIQUE: 3 view(s) of the thoracic spine were obtained. COMPARISON: None. FINDINGS: A right-sided double catheter is seen with the tip in the right atrium. Normal kyphosis of the thoracic spine. There is no substantial scoliosis. There is multilevel endplate spondylosis of the thoracic vertebrae. There is multilevel disc space narrowing of the thoracic spine. Screw fixation device is seen at the T11 and T12 vertebrae. The soft tissue structures are unremarkable. RAD/Thoracic Spine 3 Views IMPRESSION: Degenerative changes. Electronically Signed: Ronnie Saavedra MD at 15:07 EST ,
--- NOTE | 2023-10-25 11:25 | RAD_ITS ---
STUDY: X-RAY - LUMBAR SPINE REASON FOR EXAM: Female, 58 years old. Postlaminectomy syndrome, not elsewhere classified TECHNIQUE: 3 view(s) of the lumbar spine were obtained. COMPARISON: None FINDINGS: The patient is status post interpedicular screw and elinor fixation at the T10-T11, T11-T12, T12-L1 and L1-L2 level. Prosthetic cage is seen at the T12 and L1 vertebrae. There is no substantial scoliosis. The T12 vertebra is not well seen. Loss of height of the L1 vertebrae. Normal vertebral bodies and endplates. This space narrowing and facet joint osteoarthritis at the L4-L5 level. The soft tissue structures are unremarkable. RAD/Lumbar Spine 2 or 3 Views IMPRESSION: Multilevel fusion as described with a prosthetic cage replacing the T12 vertebrae. Loss of height of the L1 vertebrae. Electronically Signed: Ronnie Saavedra MD at 15:05 EST ,
== END | disposition home or self-care (01) ==
PROVIDERS: PCP Family Medicine; Referring Provider Anesthesiology Pain Medicine; Visit Provider Anesthesiology Pain Medicine
DX: F11.20 Opioid dependence, uncomplicated (principal)
CPT/HCPCS: 36415; 72072; 72100

== ENCOUNTER 2023-11-04 22:48 | Emergency (ER) | payer MEDICARE, MEDICAID, SELFPAY ==
[2018-09-21 13:23] VITALS: BMI 29.3
[2023-11-04 22:51] VITALS: BP 103/59; PULSE 91; RESP 21; TEMP 36.2; O2SAT 96; BMI 28.0
--- NOTE | 2023-11-04 22:57 | EX.ED.DYSGE1 ---
HPI History of Present Illness Chief Complaint: Dizziness Detail of Chief Complaint: Daughter called ambulance for transport because she is dizzy with standin Informant: patient and EMS Onset/Context/Timing Onset: Today Context: Sudden Onset Timing: Intermittent Quality: Dizziness occurs with standing, she also complains of nausea and diarrhea. Location: Not applicable Current Severity: Mild Maximum Severity: Moderate Worsened by: Orthostatic dizziness, diarrhea worse when she attempts to eat Relieved by: Nothing Associated Symptoms Associated Symptoms: generalized weakness and not alert. Narrative Narrative: Patient is a 58-year-old woman. She has end-stage renal disease on hemodialysis. She is dialyzed on Tuesday, Tuesday and Tuesday. She was dialyzed today. She does not know how much fluid was taken off. She presents of orthostatic dizziness. She does endorse thirst and dry mouth. She denies headache. She denies change in vision. She denies cough or shortness of breath. She states she makes no urine however squad and daughter both commented that she has been incontinent of urine. Patient has a dialysis catheter right subclavian region. Her left arm fistula never matured. She denies fever or chills. She does complain of generalized weakness. She denies cough, shortness of breath or dyspnea on exertion. She denies chest discomfort, orthopnea or PND. She denies abdominal pain. She does endorse nausea without vomiting. She also reports diarrhea today. She did not note blood in her diarrhea or mucus. Her diarrhea was not maroon in color or black. She reports neuropathy to her legs due to her peripheral arterial disease and diabetes. Prior similar symptoms: No Recent Illness/Hospitalization: No [facility] Medical History Acquired varus deformity of left foot Acquired varus deformity of right foot Acute lumbar radiculopathy Acute on chronic anemia Adult failure to thrive Amputation foot, bilat Anemia due to chronic illness Anemia in chronic illness Anxiety and depression Atherosclerosis of circle coronary artery of circle heart without angina pectoris Back pain, chronic Bilateral edema of lower extremity Cellulitis Cellulitis of both lower extremities Charcot's joint of right foot Charcot's joint, left ankle and foot Charcot's joint, right ankle and foot Chronic foot pain Chronic kidney disease, stage 3b Chronic kidney disease, stage 4 (severe) Chronic renal disease, stage 4, severely decreased glomerular filtration rate (GFR) between 15-29 mL/min/1.73 square meter Chronic renal insufficiency Chronic ulcer of left foot with fat layer exposed 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 Chronic ulcer of right foot with fat layer exposed Chronic ulcer of right foot with necrosis of bone Chronic ulcer of right foot with necrosis of muscle Chronic ulcer of right leg with fat layer exposed COVID-19 (08/28/21) CRF (chronic renal failure) Debility Delayed wound healing Diabetes Diabetes mellitus with diabetic polyneuropathy Diabetic foot ulcer associated with type 2 diabetes mellitus Diabetic foot ulcers Diabetic infection of left foot Diabetic polyneuropathy Diabetic ulcer of right ankle Elevated troponin End stage renal disease Essential (primary) hypertension Essential hypertension Foot osteomyelitis, left GERD (gastroesophageal reflux disease) Hemoglobin A1c greater than 9.0% HLD (hyperlipidemia) Hyperparathyroidism, secondary renal Hypertension Iron deficiency anemia Ischemic cardiomyopathy Myocardial infarct Non-compliance Non-pressure chronic ulcer of other part of left foot with fat layer exposed Non-pressure chronic 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 layer exposed Non-smoker Normocytic anemia NSTEMI (non-ST elevated myocardial infarction) (09/20/18) Obesity (BMI 30.0-34.9) Osteomyelitis Osteomyelitis of left foot Osteomyelitis of metatarsal RLS (restless legs syndrome) Stage 4 chronic kidney disease TIA (transient ischemic attack) Type 2 diabetes mellitus 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 Ulcer of left foot with fat layer exposed Ulcer of left foot with muscle involvement without evidence of necrosis Ulcer of left foot with necrosis of muscle Ulcer of right lower extremity with fat layer exposed Home Medications atorvastatin 80 mg tablet 80 mg PO QHS cholesterol #90 tabs 11/30/19 [Rx Last Taken 04/07/22] paroxetine HCl 20 mg tablet 20 mg PO DAILY DEPRESSION 07/07/21 [History Last Taken 04/07/22] gabapentin 300 mg capsule 100 mg TID nerve pain 12/23/21 [History Last Taken 04/07/22] bupropion HCl 150 mg 24 hr tablet, extended release 150 mg PO DAILY mood 02/04/22 [History Last Taken 04/07/22] carvedilol 12.5 mg tablet 12.5 mg PO BID heart 02/04/22 [History Last Taken 04/07/22] melatonin 5 mg tablet 5 mg PO QHS sleep 04/09/22 [History Last Taken 04/07/22] albuterol sulfate 2.5 mg/3 mL (0.083 %) solution for nebulization 2.5 mg (3 mL) inhalation Q2H PRN PRN Dyspnea, wheezing #0 mL 04/24/22 [Rx Last Taken Unknown] sennosides 8.6 mg-docusate sodium 50 mg tablet (Stool Softener-Stimulant Laxative) 2 tab PO BID PRN PRN Constipation #0 tabs 04/24/22 [Rx Last Taken Unknown] acetaminophen 325 mg tablet (Tylenol) 650 mg PO Q4H PRN PRN pain or temperature 05/05/22 [History Last Taken Unknown] ascorbic acid (vitamin C) 500 mg tablet (Vitamin C) 500 mg PO BID supplement 05/05/22 [History Last Taken Unknown] arginine 7 gram-glutam 7 gram-CaHMB 1.5 kzbb-zqrrb-di-min oral pwd pkt (Ted (with collagen)) 1 packet PO BIDCM wound healing 07/19/22 [History Last Taken Unknown] bumetanide 1 mg tablet 1 mg PO BID water pill 07/19/22 [History Last Taken Unknown] clopidogrel 75 mg tablet 75 mg PO DAILY prevent stroke 07/19/22 [History Last Taken Unknown] ferrous sulfate 325 mg (65 mg iron) tablet 325 mg PO DAILY anemia 07/19/22 [History Last Taken Unknown] folic acid 400 mcg tablet 400 mcg PO DAILY supplement 07/19/22 [History Last Taken Unknown] hydralazine 50 mg tablet 50 mg TID blood pressure 07/19/22 [History Last Taken Unknown] menthol 0.44 %-zinc oxide 20.6 % topical ointment (Calmoseptine) 1 applic topical TID impaired skin integrity 07/19/22 [History Last Taken Unknown] nystatin 100,000 unit/gram topical powder (Nyamyc) 1 applic topical BID redness 07/19/22 [History Last Taken Unknown] pantoprazole 40 mg tablet,delayed release 40 mg PO BIDCM GERD 07/19/22 [History Last Taken Unknown] potassium chloride 20 mEq tablet,extended release 20 meq PO DAILY supplement 07/19/22 [History Last Taken Unknown] insulin glargine-yfgn 100 unit/mL (3 mL) subcutaneous pen 5 unit (0.05 mL) subcut QHS blood sugar #15 mL 10/12/22 [Rx Last Taken Unknown] insulin lispro 100 unit/mL subcutaneous pen (Humalog KwikPen (U-100) Insulin) See Protocol subcut TIDAC #0 mL 07/21/22 [Rx Last Taken Unknown] isosorbide dinitrate 10 mg tablet 10 mg PO TID #0 tabs 07/21/22 [Rx Last Taken Unknown] sodium bicarbonate 650 mg tablet 650 mg PO BID replacement #30 tabs 07/21/22 [Rx Last Taken Unknown] hydrocodone-acetaminophen 5-325mg 5mg-325mg 1 tab PO Q6H PRN PRN Pain 3 days #12 TABLETS 10/21/23 [Rx Last Taken Unknown] clindamycin HCl 300 mg capsule 300 mg PO 4X/DAY 10 days #40 caps 10/25/23 [Rx Last Taken Unknown] gabapentin 100 mg capsule 100 mg PO TID 10 days #30 caps 10/25/23 [Rx Last Taken Unknown] Allergy/AdvReac Type Severity Reaction Status Date / Time Penicillins Allergy swelling Verified 10/24/23 21:41 in throat vancomycin Allergy Itching Verified 10/24/23 21:41 metronidazole AdvReac Nausea Verified 10/24/23 21:41 oxycodone [From OxyContin] AdvReac Shortness Verified 10/24/23 21:41 of breath Family History Mother Diabetes CVA (cerebral vascular accident) Brother CAD (coronary artery disease) CABG X 3 Cancer testicular Diabetes Brother CAD (coronary artery disease) CABG X3 Diabetes Brother CAD (coronary artery disease) Stents Diabetes Sister CAD (coronary artery disease) CABG x 3 CVA (cerebral vascular accident) Diabetes Surgical History History of bilateral carpal tunnel release History of History of coronary artery stent placement (12/31/20) History of foot surgery History of rotator cuff surgery Social History household members: none number of children: 2 current occupational status: disabled Smoking Status: Never smoker alcohol intake: never substance use type: does not use caffeine: Yes Type: carbonated beverages Number of servings: 2 ROS ROS ED Constitutional Constitutional ED: Denies chills, fever(s), sweats or weight loss Eyes Eyes: Denies blurry vision, change in vision or diplopia ENT ENT ED: Denies ear pain, rhinorrhea or sore throat Cardiovascular Cardiovascular: Denies chest pain, orthopnea, palpitations or paroxysmal nocturnal dyspnea Respiratory/Chest Respiratory/Chest: Denies cough, dyspnea, dyspnea on exertion, orthopnea or paroxysmal nocturnal dyspnea Gastrointestinal Gastrointestinal: Reports diarrhea and nausea; Denies abdominal pain, melena or vomiting Genitourinary Genitourinary ED: Reports other Details: Incontinence ; Denies dysuria, hematuria or urinary frequency Musculoskeletal Musculoskeletal: Reports myalgias; Denies arthralgias Integumentary Denies rash Neurologic Neurologic: Reports paresthesias RLE and LLE and weakness; Denies headache(s) Endocrine Endocrinology: Denies cold intolerance or heat intolerance Hematologic/Lymphatic Hematologic/Lymphatic: Reports systems reviewed and no addt'l complaints, except as documented EXAM Physical Exam Const Vital Signs: 11/04/23 22:51 11/04/23 22:55 11/04/23 23:37 Temperature 97.1 F L Temperature Source Temporal Pulse Rate 91 Pulse Rate [Lying] 83 Pulse Rate [Sitting (for 1 minute prior to obtaining)] 88 Pulse Rate [Standing (for 1 minute prior to obtaining)] 92 Respiratory Rate 21 H Respiratory Pattern Normal Blood Pressure 103/59 L Blood Pressure [Lying] 98/48 L Blood Pressure [Sitting (for 1 minute prior to obtaining)] 82/52 L Blood Pressure [Standing (for 1 minute prior to obtaining)] 100/72 Blood Pressure Mean 73 Blood Pressure Mean [Lying] 64 Blood Pressure Mean [Sitting (for 1 minute prior to obtaining)] 62 Blood Pressure Mean [Standing (for 1 minute prior to obtaining)] 81 Pulse Ox 96 Oxygen Delivery Method Room Air Positive well nourished and well developed Constitutional Narrative: Patient does not appear well. She is pale in appearance. General Appearance ED: well developed, NAD and pallor; Negative for cyanotic or diaphoretic HEENT Reports TM's clear and dry mucous membranes HEENT Narrative: Head is atraumatic and normocephalic. Ears are normal. Nares patent. Mucosa is dry. Uvula is midline. There is no deviation of the tongue with protrusion. There is no erythema or exudate. Tympanic Membrane ED: Yes TM's clear Mouth ED: Yes dry mucous membranes Mouth: dry mucous membranes Eyes PERRL and EOMs intact bilaterally General Eye ED: Yes pale conjunctiva; Negative for scleral icterus Neck no lymphadenopathy and supple Chest Wall inspection of chest normal and palpation of chest normal Resp normal respiratory effort Cardio regular rate, regular rhythm, S1 normal heart sound, S2 normal heart sound and no murmurs GI normal to inspection, nondistended, normoactive bowel sounds, non-tender, non-distended and no masses; Negative for hepatosplenomegaly Back/Spine no CVA tenderness Back/Spine Narrative: Inspection of the back is normal. Thoracic Spine / Upper Back: Negative for thoracic spinal tenderness Lumbar Spine / Lower Back: Negative for lumbar spinal tenderness Extremity Extremity Narrative: Patient has mild pitting edema of her lower extremities. She has stigmata of peripheral arterial disease. DP pulse was not palpated on the right or left side. She has surgical scars noted from prior infections. There is bruising noted to the left arm. There is no thrill appreciated or bruit. She states that the vessel is deep. Upon further questioning was determined that her fistula never matured. Neuro oriented x3, CN's II-XII intact bilaterally and No no sensory deficits noted Neuro Narrative: Awake but not alert Sensorium / Orientation: Negative for alert Psych Mood & Affect: depressed Skin no rashes or lesions noted, no wounds and No skin turgor normal General Skin Exam: pallor; Negative for jaundice MDM MDM MDM Narrative Medical decision making narrative: Since patient is incontinent urine will obtain straight cath urine to assess for infection. BMP to assess electrolytes and glucose since she is diabetic. Squad states BGT was 104. CBC to assess H&H since she appears anemic as well as white count. Orthostatic vital signs were obtained to determine if she truly is orthostatic and if so will administer saline bolus. Because patient's EKG is not normal we will repeat in 15 minutes. History & Record Review Additional record(s) reviewed:: Prior inpatient record (Admitted in April for acute encephalopathy and July for acute respiratory 2021.), Prior outpatient record, Prior ED visit and Prior labs Lab Data Attestation: I reviewed the patient's lab results. Lab results narrative: White count reveals mild anemia. Patient has history of mild anemia. BUN and creatinine are 42 and 4.14 which is baseline for patient. Patient has not made any urine since she has been here. Labs: Laboratory Results - last 24 hr 11/04/23 23:01 WBC 8.0 RBC 3.86 L Hgb 11.4 L Hct 37.7 MCV 97.7 MCH 29.5 MCHC 30.2 L RDW Std Deviation 50.8 H RDW Coeff of Fior 14.3 Plt Count 274 MPV 10.7 Immature Gran % (Auto) 0.400 Neut % (Auto) 66.6 Lymph % (Auto) 20.3 Bradford % (Auto) 9.6 Eos % (Auto) 2.5 Baso % (Auto) 0.6 Absolute Neuts (auto) 5.3 Absolute Lymphs (auto) 1.63 Nucleated RBC % 0 Sodium 140 Potassium 4.4 Chloride 104 Carbon Dioxide 31.0 Anion Gap 5 BUN 42 H Creatinine 4.14 H Estim Creat Clear Calc 15.70 Est GFR (MDRD) Af Amer 14 L Est GFR (MDRD) Non-Af 12 L BUN/Creatinine Ratio 10.1 Glucose 66 L Calcium 8.8 EKG Initial EKG: Attestation: I personally reviewed and interpreted this EKG as follows: Interpretation: Sinus Rhythm (Rate is 86. NV interval is 148 ms. QRS duration 94 ms. QT duration 402 ms. [place] is normal. There is significant J-point elevation in V2 to only. There is criteria for LVH. Apparently there is no old EKGs for comparison.) Treatment and Re-Evaluation :: Patient was reassessed at 0500. She is sitting up. She feels better. She would like to go home. Patient's blood pressures are low. She has chronically low blood pressure after reviewing prior records. Discharge Plan Triage Chief Complaint: Dizziness ED Provider: Devin Lincoln Dx/Rx/DC Orders Clinical Impression: ESRD on hemodialysis, Anemia in chronic illness, Orthostatic dizziness, Hypotension Instructions: ED Low Blood Pressure, All Causes Prescriptions: No Action atorvastatin 80 mg tablet 80 mg PO QHS Qty: 90 3RF paroxetine HCl 20 mg tablet 20 mg PO DAILY Patient Comments: TAKE 1 TABLET BY MOUTH EVERY DAY IN THE EVENING gabapentin 300 mg capsule 100 mg TID Hold Instructions: Hold for today and start gabapentin 300 mg 1 capsule daily in the morning Patient Comments: TAKE 3 CAPSULES BY MOUTH THREE TIMES DAILY FOR 90 DAYS. carvedilol 12.5 mg Tablet 12.5 mg PO BID bupropion HCl 150 mg tablet extended release 24 hr 150 mg PO DAILY Patient Comments: TAKE 1 TABLET BY MOUTH EVERY DAY melatonin 5 mg Tablet 5 mg PO QHS albuterol sulfate 2.5 mg /3 mL (0.083 %) Solution For Nebulization 2.5 mg inhalation Q2H PRN PRN (Reason: Dyspnea, wheezing) Qty: 0 0RF sennosides-docusate sodium [Stool Softener-Stimulant Laxat] 8.6-50 mg Tablet 2 tab PO BID PRN PRN (Reason: Constipation) Qty: 0 0RF ascorbic acid (vitamin C) [Vitamin C] 500 mg Tablet 500 mg PO BID acetaminophen [Tylenol] 325 mg tablet 650 mg PO Q4H PRN PRN (Reason: pain or temperature) folic acid 400 mcg Tablet 400 mcg PO DAILY bumetanide 1 mg Tablet 1 mg PO BID hydralazine 50 mg Tablet 50 mg TID potassium chloride 20 mEq Tablet Extended Release 20 meq PO DAILY clopidogrel 75 mg tablet 75 mg PO DAILY pantoprazole 40 mg tablet,delayed release (DR/EC) 40 mg PO BIDCM ferrous sulfate 325 mg (65 mg iron) tablet 325 mg PO DAILY nystatin [Nyamyc] 100,000 unit/gram powder 1 applic topical BID Protocol: *Topical Application Instructions APPLICATION INSTRUCTIONS: vinicius area menthol-zinc oxide [Calmoseptine] 0.44-20.6 % ointment 1 applic topical TID Protocol: *Topical Application Instructions APPLICATION INSTRUCTIONS: buttocks Ted (with collagen) 7-7-1.5 gram powder in packet 1 packet PO BIDCM isosorbide dinitrate 10 mg Tablet 10 mg PO TID Qty: 0 0RF insulin lispro [Humalog KwikPen Insulin] 100 unit/mL Insulin Pen See Protocol subcut TIDAC Qty: 0 0RF Protocol: 1. Sliding Scale Insulin Low Dosing Condition: 150-224 mg/dl = 1 unit Condition: 225-299 mg/dl = 2 units Condition: 300-374 mg/dl = 3 units Condition: 375-499 mg/dl = 4 units Condition: Greater than 449 call physician Protocol Text: - Use for Total Daily Dose of Insulin 15-27 units - Thin, elderly, renal patients LOW DOSING ALGORITHM sodium bicarbonate 650 mg tablet 650 mg PO BID Qty: 30 0RF insulin glargine-yfgn 100 unit/mL (3 mL) insulin pen 5 unit subcut QHS Qty: 15 0RF Rx Instructions: Hold if glucose less than 130 mg/dl hydrocodone-acetaminophen [hydrocodone-acetaminophen] 5-325 mg tablet 1 tab PO Q6H PRN PRN (Reason: Pain) 3 Days Qty: 12 0RF clindamycin HCl 300 mg capsule 300 mg PO 4X/DAY 10 Days Qty: 40 0RF gabapentin 100 mg capsule 100 mg PO TID 10 Days Qty: 30 0RF Primary Care Provider: Raúl Eric Referrals: Raúl Eric MD [Primary Care Provider] - 3-5 Days if not improving Disposition Disposition: Home, Self Care
[2023-11-04 23:10] LABS: Absolute Lymphocyte Count 1.63 X10^3/uL (0.83-4.51); Absolute Neutrophil Count 5.3 X10^3/uL (2.0-7.7); Basophil# 0.05 X10^3/uL; Basophil% 0.6 % (0-1); Eosinophils% 2.5 % (0-5); Hematocrit 37.7 % (37-47); Hemoglobin 11.4 g/dL (12.0-15.0); Lymphocyte # 1.63 X10^3/ul (0.83-4.51); Lymphocyte % 20.3 % (19-41); Mean Corp Hgb Conc 30.2 g/dL (32-36); Mean Corpuscular Hgb 29.5 pg (27.0-32.0); Mean Corpuscular Volume 97.7 fL (81-99); Mean Platelet Vol. 10.7 fl (6.2-12.0); Monocyte# 0.77 X10^3/uL; Monocyte% 9.6 % (0-10); NRBC Flagged by Analyzer 0 % (0-5); Neutrophil # 5.33 X10^3/uL (2.7-7.7); Neutrophil % 66.6 % (47-70); Platelet Count 274 K/mm3 (150-450); RBC Distribution Width CV 14.3 % (11.6-14.6); RBC Distribution Width SD 50.8 fl (35.1-43.9); Red Blood Count 3.86 M/mm3 (4.2-5.4)
[2023-11-04 23:23] LABS: Anion Gap 5 (5-15); BUN 42 mg/dL (7-18); BUN/Creat Ratio 10.1 RATIO (10-20); Calcium,Total 8.8 mg/dL (8.5-10.1); Chloride 104 mmol/L (98-107); Creatinine, Serum 4.14 mg/dL (0.55-1.02); EST Glomerular Filtration Rate 12 mL/min (>60); Est Glom Filt Rate - Afr Amer 14 mL/min (>60); Glucose 66 mg/dL (74-106); Potassium 4.4 mmol/L (3.5-5.1); Sodium Level 140 mmol/L (136-145)
[2023-11-04 23:37] VITALS: BP 100/72; BP 82/52; BP 98/48; PULSE 83; PULSE 88; PULSE 92
--- NOTE | 2023-11-05 00:06 | ED.RN ---
GOMEZ DORADO KEEPS CALLING FOR UPDATES [facility] [phone]
[2023-11-05 05:38] VITALS: BP 116/61; PULSE 94; RESP 13
== END 2023-11-05 05:42 | disposition home or self-care (01) ==
PROVIDERS: Emergency Provider Emergency Medicine; PCP Family Medicine; Visit Provider Emergency Medicine
DX: I95.9 Hypotension, unspecified (principal); E11.51 Type 2 diabetes mellitus with diabetic peripheral angiopathy without gangrene; Z99.2 Dependence on renal dialysis; E11.22 Type 2 diabetes mellitus with diabetic chronic kidney disease; I12.0 Hypertensive chronic kidney disease with stage 5 chronic kidney disease or end stage renal disease; N18.6 End stage renal disease; R11.0 Nausea; R32 Unspecified urinary incontinence; R42 Dizziness and giddiness; D63.8 Anemia in other chronic diseases classified elsewhere; R19.7 Diarrhea, unspecified; Z95.5 Presence of coronary angioplasty implant and graft
CPT/HCPCS: 80048; 85025; 93005; 99285; A4216

== ENCOUNTER 2023-11-16 16:47 | Emergency (ER) | payer MEDICARE, MEDICAID, SELFPAY ==
[2018-09-21 13:23] VITALS: BMI 29.3
[2023-11-16 16:47] VITALS: BP 123/61; PULSE 103; RESP 20; TEMP 36.6; O2SAT 100
[2023-11-16 16:49] VITALS: BMI 27.3
--- NOTE | 2023-11-16 17:40 | ED.VIS.LOWEX ---
HPI History of Present Illness HPI Narrative: Atraumatic left foot pain began today. History of diabetes and diabetic neuropathy. Prior ulcerations. Denies any fall or injury. Chief Complaint: Lower Extremity Injury Informant: patient Occured/Mechanism Mechanism/Context: No injury and No blunt trauma Onset/Context/Timing Onset: Today Context: Gradual Onset Timing: Continuous Quality of Pain: Sharp Current Severity: Mild Maximum Severity: Mild Associated Symptoms Associated Symptoms: Positive for Parasthesia; Negative for Weakness or Loss of Funtion Narrative Narrative: Atraumatic left foot pain. History of diabetes and diabetic neuropathy. Prior infections. Denies fever or chills. Prior similar symptoms: Yes Recent Illness/Hospitalization: No PFSH PFS Medical History Acquired varus deformity of left foot Acquired varus deformity of right foot Acute lumbar radiculopathy Acute on chronic anemia Adult failure to thrive Amputation foot, bilat Anemia due to chronic illness Anemia in chronic illness Anxiety and depression Atherosclerosis of [place] coronary artery of [place] heart without angina pectoris Back pain, chronic Bilateral edema of lower extremity Cellulitis Cellulitis of both lower extremities Charcot's joint of right foot Charcot's joint, left ankle and foot Charcot's joint, right ankle and foot Chronic foot pain Chronic kidney disease, stage 3b Chronic kidney disease, stage 4 (severe) Chronic renal disease, stage 4, severely decreased glomerular filtration rate (GFR) between 15-29 mL/min/1.73 square meter Chronic renal insufficiency Chronic ulcer of left foot with fat layer exposed 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 Chronic ulcer of right foot with fat layer exposed Chronic ulcer of right foot with necrosis of bone Chronic ulcer of right foot with necrosis of muscle Chronic ulcer of right leg with fat layer exposed COVID-19 (08/28/21) CRF (chronic renal failure) Debility Delayed wound healing Diabetes Diabetes mellitus with diabetic polyneuropathy Diabetic foot ulcer associated with type 2 diabetes mellitus Diabetic foot ulcers Diabetic infection of left foot Diabetic polyneuropathy Diabetic ulcer of right ankle Elevated troponin End stage renal disease Essential (primary) hypertension Essential hypertension Foot osteomyelitis, left GERD (gastroesophageal reflux disease) Hemoglobin A1c greater than 9.0% HLD (hyperlipidemia) Hyperparathyroidism, secondary renal Hypertension Iron deficiency anemia Ischemic cardiomyopathy Myocardial infarct Non-compliance Non-pressure chronic ulcer of other part of left foot with fat layer exposed Non-pressure chronic 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 layer exposed Non-smoker Normocytic anemia NSTEMI (non-ST elevated myocardial infarction) (09/20/18) Obesity (BMI 30.0-34.9) Osteomyelitis Osteomyelitis of left foot Osteomyelitis of metatarsal RLS (restless legs syndrome) Stage 4 chronic kidney disease TIA (transient ischemic attack) Type 2 diabetes mellitus 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 Ulcer of left foot with fat layer exposed Ulcer of left foot with muscle involvement without evidence of necrosis Ulcer of left foot with necrosis of muscle Ulcer of right lower extremity with fat layer exposed Home Medications atorvastatin 80 mg tablet 80 mg PO QHS cholesterol #90 tabs 11/30/19 [Rx Last Taken 04/07/22] paroxetine HCl 20 mg tablet 20 mg PO DAILY DEPRESSION 07/07/21 [History Last Taken 04/07/22] gabapentin 300 mg capsule 100 mg TID nerve pain 12/23/21 [History Last Taken 04/07/22] bupropion HCl 150 mg 24 hr tablet, extended release 150 mg PO DAILY mood 02/04/22 [History Last Taken 04/07/22] carvedilol 12.5 mg tablet 12.5 mg PO BID heart 02/04/22 [History Last Taken 04/07/22] melatonin 5 mg tablet 5 mg PO QHS sleep 04/09/22 [History Last Taken 04/07/22] albuterol sulfate 2.5 mg/3 mL (0.083 %) solution for nebulization 2.5 mg (3 mL) inhalation Q2H PRN PRN Dyspnea, wheezing #0 mL 04/24/22 [Rx Last Taken Unknown] sennosides 8.6 mg-docusate sodium 50 mg tablet (Stool Softener-Stimulant Laxative) 2 tab PO BID PRN PRN Constipation #0 tabs 04/24/22 [Rx Last Taken Unknown] acetaminophen 325 mg tablet (Tylenol) 650 mg PO Q4H PRN PRN pain or temperature 05/05/22 [History Last Taken Unknown] ascorbic acid (vitamin C) 500 mg tablet (Vitamin C) 500 mg PO BID supplement 05/05/22 [History Last Taken Unknown] arginine 7 gram-glutam 7 gram-CaHMB 1.5 [id number]-hboov-rm-min oral pwd pkt (Ted (with collagen)) 1 packet PO BIDCM wound healing 07/19/22 [History Last Taken Unknown] bumetanide 1 mg tablet 1 mg PO BID water pill 07/19/22 [History Last Taken Unknown] clopidogrel 75 mg tablet 75 mg PO DAILY prevent stroke 07/19/22 [History Last Taken Unknown] ferrous sulfate 325 mg (65 mg iron) tablet 325 mg PO DAILY anemia 07/19/22 [History Last Taken Unknown] folic acid 400 mcg tablet 400 mcg PO DAILY supplement 07/19/22 [History Last Taken Unknown] hydralazine 50 mg tablet 50 mg TID blood pressure 07/19/22 [History Last Taken Unknown] menthol 0.44 %-zinc oxide 20.6 % topical ointment (Calmoseptine) 1 applic topical TID impaired skin integrity 07/19/22 [History Last Taken Unknown] nystatin 100,000 unit/gram topical powder (Nyamyc) 1 applic topical BID redness 07/19/22 [History Last Taken Unknown] pantoprazole 40 mg tablet,delayed release 40 mg PO BIDCM GERD 07/19/22 [History Last Taken Unknown] potassium chloride 20 mEq tablet,extended release 20 meq PO DAILY supplement 07/19/22 [History Last Taken Unknown] insulin glargine-yfgn 100 unit/mL (3 mL) subcutaneous pen 5 unit (0.05 mL) subcut [facility] blood sugar #15 mL 07/21/22 [Rx Last Taken Unknown] insulin lispro 100 unit/mL subcutaneous pen (Humalog KwikPen (U-100) Insulin) See Protocol subcut TIDAC #0 mL 07/21/22 [Rx Last Taken Unknown] isosorbide dinitrate 10 mg tablet 10 mg PO TID #0 tabs 07/21/22 [Rx Last Taken Unknown] sodium bicarbonate 650 mg tablet 650 mg PO BID replacement #30 tabs 07/21/22 [Rx Last Taken Unknown] hydrocodone-acetaminophen 5-325mg 5mg-325mg 1 tab PO Q6H PRN PRN Pain 3 days #12 TABLETS 10/21/23 [Rx Last Taken Unknown] clindamycin HCl 300 mg capsule 300 mg PO 4X/DAY 10 days #40 caps 10/25/23 [Rx Last Taken Unknown] gabapentin 100 mg capsule 100 mg PO TID 10 days #30 caps 10/25/23 [Rx Last Taken Unknown] cephalexin 500 mg capsule 500 mg PO Q6 #40 CAPSULES 11/16/23 [Rx Last Taken Unknown] hydrocodone 5 mg-acetaminophen 300 mg tablet 1 tab PO Q6H PRN pain 4 days #14 tabs 11/16/23 [Rx Last Taken Unknown] Allergy/AdvReac Type Severity Reaction Status Date / Time Penicillins Allergy swelling Verified 11/16/23 16:47 in throat vancomycin Allergy Itching Verified 11/16/23 16:47 metronidazole AdvReac Nausea Verified 11/16/23 16:47 oxycodone [From OxyContin] AdvReac Shortness Verified 11/16/23 16:47 of breath Family History Mother Diabetes CVA (cerebral vascular accident) Brother CAD (coronary artery disease) CABG X 3 Cancer testicular Diabetes Brother CAD (coronary artery disease) CABG X3 Diabetes Brother CAD (coronary artery disease) Stents Diabetes Sister CAD (coronary artery disease) CABG x 3 CVA (cerebral vascular accident) Diabetes Surgical History History of bilateral carpal tunnel release History of History of coronary artery stent placement (12/31/20) History of foot surgery History of rotator cuff surgery Social History household members: none number of children: 2 current occupational status: disabled Smoking Status: Never smoker alcohol intake: never substance use type: does not use caffeine: Yes Type: carbonated beverages Number of servings: 2 ROS ROS ED ROS Narrative Atraumatic foot pain. No fever or chills. Review of Systems ROS Unobtainable: Denies due to encephalopathy Constitutional Constitutional ED: Denies chills or fever(s) Eyes Eyes: Denies blurry vision Cardiovascular Cardiovascular: Denies chest pain Respiratory/Chest Respiratory/Chest: Denies cough Gastrointestinal Gastrointestinal: Denies abdominal pain Genitourinary Genitourinary ED: Denies dysuria Musculoskeletal Musculoskeletal: Denies arthralgias Integumentary Denies abscess or Abrasions Neurologic Neurologic: Denies headache(s) Psychiatric Psychiatric: Denies anxiety or depression Endocrine Endocrinology: Denies polydipsia Hematologic/Lymphatic Hematologic/Lymphatic: Denies easy bleeding or easy bruising Allergic/Immunologic Allergic/Immunologic ED: Denies mouth swelling, tongue swelling or urticaria EXAM Physical Exam Narrative Exam Narrative: Well-appearing 58-year-old female. Vital signs stable afebrile. H EENT exam unremarkable. Neck nontender no lymphadenopathy. Lungs clear to auscultation bilaterally. Heart regular rhythm no murmur. Chest wall nontender. Abdomen soft nontender. Moving all 4 extremities. Left foot minimally swollen and tender primarily along the fifth or small toe metatarsal. Minimal redness. Able to wiggle her toes. Chronic paresthesia. No skin ulceration. No pus. No subcu air. No necrotic tissue. Calf is nontender there is no lymphangitic streaking. She has normal flexion extension of her ankle and is able to wiggle her toes. She has no inguinal lymphadenopathy. Const Vital Signs: 11/16/23 16:47 11/16/23 21:10 Temperature 97.8 F 97.1 F L Temperature Source Temporal Temporal Pulse Rate 103 H 103 H Respiratory Rate 20 H 12 Blood Pressure 123/61 H 124/76 H Blood Pressure Mean 81 92 Pulse Ox 100 98 Oxygen Delivery Method Room Air Room Air Positive well nourished and well developed; Negative for cachectic, contractures or unkempt General Appearance ED: well developed and NAD; Negative for unkempt, cachectic or contractures Nutritional Appearance: Negative for cachectic HEENT Reports moist mucous membranes normocephalic and atraumatic; Negative for trauma or tenderness Eyes PERRL General Eye ED: Negative for other Neck full ROM and supple Thyroid: Negative for tender Lymph Lymphatic: Negative for other Chest Wall inspection of chest normal Chest: Negative for other Resp normal respiratory effort, no retractions and clear to auscultation bilaterally Effort and Inspection: Negative for pain with movement Auscultation: Negative for rales, rhonchi, wheezes or diminished lung sounds Cardio regular rate, regular rhythm, S1 normal heart sound, S2 normal heart sound and no murmurs Rate: Negative for bradycardia or tachycardic Rhythm: Negative for abnormal rhythm GI non-tender, non-distended and no masses Inspection: Negative for abdominal distention Auscultation: normoactive bowel sounds Palpation: soft; Negative for tender or guarding Back/Spine no CVA tenderness General Back: Negative for CVA tenderness Cervical Spine: Negative for cervical spine tenderness Thoracic Spine / Upper Back: Negative for thoracic spinal tenderness Lumbar Spine / Lower Back: Negative for lumbar spinal tenderness Extremity full ROM; Negative for normal to inspection Extremity Narrative: Left foot minimally swollen and red along the metatarsal of the small toe. Able to wiggle her toes. Normal dorsi plantarflexion of left ankle. No lymphangitic streaking. No inguinal lymphadenopathy. No signs of septic joint. She has chronic paresthesias in her left foot from diabetic neuropathy. Neuro oriented x3, CN's II-XII intact bilaterally, moves all extremities and No no sensory deficits noted Sensorium / Orientation: alert, oriented to person, oriented to place and oriented to time Motor Exam: strength 5/5 throughout Psych mental status grossly normal Appearance: Negative for unkempt Speech: No other Mood & Affect: Negative for anxious Skin no wounds Rashes: No no rashes MDM MDM MDM Narrative Medical decision making narrative: 58-year-old diabetic female with atraumatic left foot pain might have an early cellulitis. X-ray and labs being obtained. Patient will be given a Maxwell for pain and a Keflex. Repeat exam at 9:45 PM unchanged. I have podiatry on page and states they can see her in close follow-up. Patient be placed on Keflex 500 4 times daily for 10 days. Limited Vicodin for pain 10 no refill. And outpatient follow-up with podiatry. Return if worse. Her labs are consistent with her baseline chronic disease. History & Record Review Discussion w/independent historian: Patient Additional record(s) reviewed:: Prior inpatient record, Prior outpatient record, Prior ED visit and No prior records Lab Data Attestation: I reviewed the patient's lab results. Lab results narrative: CBC normal white count 7 H&H of 10.6 and 34. Platelets 242. Consistent with her baseline. Electrolytes unremarkable gap of 6. BUN of 529 creatinine 3.3 which she has history of chronic kidney disease. Glucose 368. C-reactive protein is elevated 18.9. Patient has had much higher C-reactive proteins in the past. Labs: Laboratory Results - last 24 hr 11/16/23 18:10 WBC 7.4 RBC 3.63 L Hgb 10.6 L Hct 34.5 L MCV 95.0 MCH 29.2 MCHC 30.7 L RDW Std Deviation 48.2 H RDW Coeff of Fior 13.8 Plt Count 242 MPV 10.6 Immature Gran % (Auto) 0.500 Neut % (Auto) 72.9 H Lymph % (Auto) 15.2 L Letcher % (Auto) 9.0 Eos % (Auto) 1.6 Baso % (Auto) 0.8 Absolute Neuts (auto) 5.4 Absolute Lymphs (auto) 1.13 Nucleated RBC % 0 Sodium 136 Potassium 3.9 Chloride 102 Carbon Dioxide 28.0 Anion Gap 6 BUN 29 H Creatinine 3.53 H Estim Creat Clear Calc 18.17 Est GFR (MDRD) Af Amer 17 L Est GFR (MDRD) Non-Af 14 L BUN/Creatinine Ratio 8.2 L Glucose 368 H Calcium 9.1 C-React Prot Ext Range 18.90 H Radiography Diagnostic Testing: Clinical Impression(s) from Imaging Studies Foot X-Ray 11/16/23 17:50 IMPRESSION: Interval partial healing of fractures of the base of the first metatarsal and the necks of the second and third metatarsals. Electronically Signed: Alexis Rosales MD at 18:09 EST , Left foot x-ray interpreted both by myself and radiologist. 3 views. Shows prior fractures of the first second and Fourth metatarsals in different stages of healing. No gas gangrene. No subcu air noted. Compared to prior x-rays no substantial change. Discharge Plan Triage Chief Complaint: Lower Extremity Injury ED Provider: Sachin Schmitz Dx/Rx/DC Orders Clinical Impression: History of foot fracture, Hx of diabetic neuropathy, History of diabetes mellitus, Cellulitis of foot, left Instructions: ED Cellulitis, ED Fracture, Foot Prescriptions: New cephalexin 500 mg capsule 500 mg PO Q6 Qty: 40 0RF hydrocodone-acetaminophen 5-300 mg tablet 1 tab PO Q6H PRN (Reason: pain) 4 Days Qty: 14 0RF No Action atorvastatin 80 mg tablet 80 mg PO QHS Qty: 90 3RF paroxetine HCl 20 mg tablet 20 mg PO DAILY Patient Comments: TAKE 1 TABLET BY MOUTH EVERY DAY IN THE EVENING gabapentin 300 mg capsule 100 mg TID Hold Instructions: Hold for today and start gabapentin 300 mg 1 capsule daily in the morning Patient Comments: TAKE 3 CAPSULES BY MOUTH THREE TIMES DAILY FOR 90 DAYS. carvedilol 12.5 mg Tablet 12.5 mg PO BID bupropion HCl 150 mg tablet extended release 24 hr 150 mg PO DAILY Patient Comments: TAKE 1 TABLET BY MOUTH EVERY DAY melatonin 5 mg Tablet 5 mg PO QHS albuterol sulfate 2.5 mg /3 mL (0.083 %) Solution For Nebulization 2.5 mg inhalation Q2H PRN PRN (Reason: Dyspnea, wheezing) Qty: 0 0RF sennosides-docusate sodium [Stool Softener-Stimulant Laxat] 8.6-50 mg Tablet 2 tab PO BID PRN PRN (Reason: Constipation) Qty: 0 0RF ascorbic acid (vitamin C) [Vitamin C] 500 mg Tablet 500 mg PO BID acetaminophen [Tylenol] 325 mg tablet 650 mg PO Q4H PRN PRN (Reason: pain or temperature) folic acid 400 mcg Tablet 400 mcg PO DAILY bumetanide 1 mg Tablet 1 mg PO BID hydralazine 50 mg Tablet 50 mg TID potassium chloride 20 mEq Tablet Extended Release 20 meq PO DAILY clopidogrel 75 mg tablet 75 mg PO DAILY pantoprazole 40 mg tablet,delayed release (DR/EC) 40 mg PO BIDCM ferrous sulfate 325 mg (65 mg iron) tablet 325 mg PO DAILY nystatin [Nyamyc] 100,000 unit/gram powder 1 applic topical BID Protocol: *Topical Application Instructions APPLICATION INSTRUCTIONS: vinicius area menthol-zinc oxide [Calmoseptine] 0.44-20.6 % ointment 1 applic topical TID Protocol: *Topical Application Instructions APPLICATION INSTRUCTIONS: buttocks Ted (with collagen) 7-7-1.5 gram powder in packet 1 packet PO BIDCM isosorbide dinitrate 10 mg Tablet 10 mg PO TID Qty: 0 0RF insulin lispro [Humalog KwikPen Insulin] 100 unit/mL Insulin Pen See Protocol subcut TIDAC Qty: 0 0RF Protocol: 1. Sliding Scale Insulin Low Dosing Condition: 150-224 mg/dl = 1 unit Condition: 225-299 mg/dl = 2 units Condition: 300-374 mg/dl = 3 units Condition: 375-499 mg/dl = 4 units Condition: Greater than 449 call physician Protocol Text: - Use for Total Daily Dose of Insulin 15-27 units - Thin, elderly, renal patients LOW DOSING ALGORITHM sodium bicarbonate 650 mg tablet 650 mg PO BID Qty: 30 0RF insulin glargine-yfgn 100 unit/mL (3 mL) insulin pen 5 unit subcut QHS Qty: 15 0RF Rx Instructions: Hold if glucose less than 130 mg/dl hydrocodone-acetaminophen [hydrocodone-acetaminophen] 5-325 mg tablet 1 tab PO Q6H PRN PRN (Reason: Pain) 3 Days Qty: 12 0RF clindamycin HCl 300 mg capsule 300 mg PO 4X/DAY 10 Days Qty: 40 0RF gabapentin 100 mg capsule 100 mg PO TID 10 Days Qty: 30 0RF Primary Care Provider: Raúl Eric Referrals: Gustavo Julian DPM [Med Staff - Active Staff] - 1 Day for another exam (Call tomorrow for an appointment either tomorrow or no later than Tuesday. I spoke with him on the phone tonight.) Raúl Eric MD [Primary Care Provider] - Activity Restrictions/Additional Instructions: Vicodin for pain. Keflex 1 pill 4 times a day till gone. No weightbearing on your left foot. Per the aircraft engine dismantler. Call the aircraft engine dismantler office tomorrow and they will get you in either tomorrow no later than Tuesday. Disposition Disposition: Home, Self Care
--- NOTE | 2023-11-16 17:50 | RAD_ITS ---
STUDY: X-RAY - LEFT FOOT CLINICAL: Female, 58 years old. atraumatic left foot pain TECHNIQUE: 3 view(s) of the foot. COMPARISON: 10/24/2023. FINDINGS: Severe demineralization. Evidence of new bone formation and interval healing of fractures of the necks of the second and third metatarsals, and the base of the first metatarsal. Stable appearance of previous amputation of the fifth ray down to the base of the fifth metatarsal. Reversal of the plantar arch at the midfoot. Possible neuropathic joint developing in the mid foot Dorsal soft tissue swelling. RAD/Foot min 3 Views IMPRESSION: Interval partial healing of fractures of the base of the first metatarsal and the necks of the second and third metatarsals. Electronically Signed: Alexis Rosales MD at 18:09 EST ,
[2023-11-16] MEDS: HYDROcodone Bitartrate/Apap 5/325 Tablet PO (18:00)
[2023-11-16] MEDS: Cephalexin 250 MG Capsule 500 MG PO (18:01)
[2023-11-16 18:15] LABS: Absolute Lymphocyte Count 1.13 X10^3/uL (0.83-4.51); Absolute Neutrophil Count 5.4 X10^3/uL (2.0-7.7); Basophil# 0.06 X10^3/uL; Basophil% 0.8 % (0-1); Eosinophil# 0.12 X10^3/uL; Eosinophils% 1.6 % (0-5); Hematocrit 34.5 % (37-47); Hemoglobin 10.6 g/dL (12.0-15.0); Lymphocyte # 1.13 X10^3/ul (0.83-4.51); Lymphocyte % 15.2 % (19-41); Mean Corp Hgb Conc 30.7 g/dL (32-36); Mean Corpuscular Hgb 29.2 pg (27.0-32.0); Mean Platelet Vol. 10.6 fl (6.2-12.0); Monocyte# 0.67 X10^3/uL; NRBC Flagged by Analyzer 0 % (0-5); Neutrophil % 72.9 % (47-70); Platelet Count 242 K/mm3 (150-450); RBC Distribution Width CV 13.8 % (11.6-14.6); RBC Distribution Width SD 48.2 fl (35.1-43.9); Red Blood Count 3.63 M/mm3 (4.2-5.4); White Blood Count 7.4 K/mm3 (4.4-11.0)
[2023-11-16 18:32] LABS: Anion Gap 6 (5-15); BUN 29 mg/dL (7-18); BUN/Creat Ratio 8.2 RATIO (10-20); Calcium,Total 9.1 mg/dL (8.5-10.1); Chloride 102 mmol/L (98-107); Creatinine, Serum 3.53 mg/dL (0.55-1.02); EST Glomerular Filtration Rate 14 mL/min (>60); Est Glom Filt Rate - Afr Amer 17 mL/min (>60); Estimated Creatinine Clearance 18.17 ml/min; Glucose 368 mg/dL (74-106); Potassium 3.9 mmol/L (3.5-5.1); Sodium Level 136 mmol/L (136-145)
[2023-11-16 21:10] VITALS: BP 124/76; PULSE 103; RESP 12; TEMP 36.2; O2SAT 98
== END 2023-11-16 22:21 | disposition home or self-care (01) ==
PROVIDERS: Emergency Provider Emergency Medicine; PCP Family Medicine; Visit Provider Emergency Medicine
DX: L03.116 Cellulitis of left lower limb (principal); E11.40 Type 2 diabetes mellitus with diabetic neuropathy, unspecified; E11.22 Type 2 diabetes mellitus with diabetic chronic kidney disease; N18.4 Chronic kidney disease, stage 4 (severe); Z79.4 Long term (current) use of insulin; I12.9 Hypertensive chronic kidney disease with stage 1 through stage 4 chronic kidney disease, or unspecified chronic kidney disease; I25.10 Atherosclerotic heart disease of native coronary artery without angina pectoris; Z79.02 Long term (current) use of antithrombotics/antiplatelets; Z79.899 Other long term (current) drug therapy
CPT/HCPCS: 73630; 80048; 85025; 86140; 99284; A4216

== ENCOUNTER → 2023-11-18 | Outpatient (CLI) | payer MEDICARE, MEDICAID, SELFPAY ==
[2018-09-21 13:23] VITALS: BMI 29.3
[2023-11-18 16:34] LABS: Absolute Lymphocyte Count 1.03 X10^3/uL (0.83-4.51); Absolute Neutrophil Count 4.3 X10^3/uL (2.0-7.7); Basophil# 0.04 X10^3/uL; Basophil% 0.7 % (0-1); Eosinophil# 0.17 X10^3/uL; Eosinophils% 2.8 % (0-5); Hematocrit 30.3 % (37-47); Hemoglobin 9.5 g/dL (12.0-15.0); Lymphocyte # 1.03 X10^3/ul (0.83-4.51); Lymphocyte % 17.1 % (19-41); Mean Corp Hgb Conc 31.4 g/dL (32-36); Mean Corpuscular Hgb 29.1 pg (27.0-32.0); Mean Corpuscular Volume 92.9 fL (81-99); Monocyte# 0.41 X10^3/uL; Monocyte% 6.8 % (0-10); NRBC Flagged by Analyzer 0 % (0-5); Neutrophil # 4.33 X10^3/uL (2.7-7.7); Neutrophil % 71.9 % (47-70); Platelet Count 216 K/mm3 (150-450); RBC Distribution Width CV 13.8 % (11.6-14.6); RBC Distribution Width SD 47.2 fl (35.1-43.9); Red Blood Count 3.26 M/mm3 (4.2-5.4)
[2023-11-18 16:49] LABS: Erythrocyte Sedimentation Rate 62 mm/hr (0-30)
== END | disposition home or self-care (01) ==
PROVIDERS: PCP Family Medicine; Referring Provider Orthopaedic Surgery; Visit Provider Orthopaedic Surgery
DX: M46.25 Osteomyelitis of vertebra, thoracolumbar region (principal)
CPT/HCPCS: 36415; 85025; 85652; 86140

== ENCOUNTER 2023-11-26 23:17 | Emergency (ER) | payer MEDICARE, MEDICAID, SELFPAY ==
[2018-09-21 13:23] VITALS: BMI 29.3
[2023-11-26 23:18] VITALS: BP 159/86; PULSE 96; RESP 16; TEMP 36.6; O2SAT 99; BMI 29.1
--- NOTE | 2023-11-26 23:23 | ED.VIS.BACK ---
HPI History of Present Illness Chief Complaint: Back [facility] Medical History Acquired varus deformity of left foot Acquired varus deformity of right foot Acute lumbar radiculopathy Acute on chronic anemia Adult failure to thrive Amputation foot, bilat Anemia due to chronic illness Anemia in chronic illness Anxiety and depression Atherosclerosis of [place] coronary artery of [place] heart without angina pectoris Back pain, chronic Bilateral edema of lower extremity Cellulitis Cellulitis of both lower extremities Charcot's joint of right foot Charcot's joint, left ankle and foot Charcot's joint, right ankle and foot Chronic foot pain Chronic kidney disease, stage 3b Chronic kidney disease, stage 4 (severe) Chronic renal disease, stage 4, severely decreased glomerular filtration rate (GFR) between 15-29 mL/min/1.73 square meter Chronic renal insufficiency Chronic ulcer of left foot with fat layer exposed 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 Chronic ulcer of right foot with fat layer exposed Chronic ulcer of right foot with necrosis of bone Chronic ulcer of right foot with necrosis of muscle Chronic ulcer of right leg with fat layer exposed COVID-19 (08/28/21) CRF (chronic renal failure) Debility Delayed wound healing Diabetes Diabetes mellitus with diabetic polyneuropathy Diabetic foot ulcer associated with type 2 diabetes mellitus Diabetic foot ulcers Diabetic infection of left foot Diabetic polyneuropathy Diabetic ulcer of right ankle Elevated troponin End stage renal disease Essential (primary) hypertension Essential hypertension Foot osteomyelitis, left GERD (gastroesophageal reflux disease) Hemoglobin A1c greater than 9.0% HLD (hyperlipidemia) Hyperparathyroidism, secondary renal Hypertension Iron deficiency anemia Ischemic cardiomyopathy Myocardial infarct Non-compliance Non-pressure chronic ulcer of other part of left foot with fat layer exposed Non-pressure chronic 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 layer exposed Non-smoker Normocytic anemia NSTEMI (non-ST elevated myocardial infarction) (09/20/18) Obesity (BMI 30.0-34.9) Osteomyelitis Osteomyelitis of left foot Osteomyelitis of metatarsal RLS (restless legs syndrome) Stage 4 chronic kidney disease TIA (transient ischemic attack) Type 2 diabetes mellitus 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 Ulcer of left foot with fat layer exposed Ulcer of left foot with muscle involvement without evidence of necrosis Ulcer of left foot with necrosis of muscle Ulcer of right lower extremity with fat layer exposed Home Medications atorvastatin 80 mg tablet 80 mg PO QHS cholesterol #90 tabs 11/30/19 [Rx Last Taken 04/07/22] paroxetine HCl 20 mg tablet 20 mg PO DAILY DEPRESSION 07/07/21 [History Last Taken 04/07/22] bupropion HCl 150 mg 24 hr tablet, extended release 150 mg PO DAILY mood 02/04/22 [History Last Taken 04/07/22] sennosides 8.6 mg-docusate sodium 50 mg tablet (Stool Softener-Stimulant Laxative) 2 tab PO BID PRN PRN Constipation #0 tabs 04/24/22 [Rx Last Taken Unknown] ascorbic acid (vitamin C) 500 mg tablet (Vitamin C) 500 mg PO BID supplement 05/05/22 [History Last Taken Unknown] clopidogrel 75 mg tablet 75 mg PO DAILY prevent stroke 07/19/22 [History Last Taken Unknown] ferrous sulfate 325 mg (65 mg iron) tablet 325 mg PO DAILY anemia 07/19/22 [History Last Taken Unknown] folic acid 400 mcg tablet 400 mcg PO DAILY supplement 07/19/22 [History Last Taken Unknown] pantoprazole 40 mg tablet,delayed release 40 mg PO BIDCM GERD 07/19/22 [History Last Taken Unknown] insulin glargine-yfgn 100 unit/mL (3 mL) subcutaneous pen 5 unit (0.05 mL) subcut QHS blood sugar #15 mL 07/21/22 [Rx Last Taken Unknown] insulin lispro 100 unit/mL subcutaneous pen (Humalog KwikPen (U-100) Insulin) See Protocol subcut TIDAC #0 mL 07/21/22 [Rx Last Taken Unknown] isosorbide dinitrate 10 mg tablet 10 mg PO TID #0 tabs 07/21/22 [Rx Last Taken Unknown] clindamycin HCl 300 mg capsule 300 mg PO 4X/DAY 10 days #40 caps 10/25/23 [Rx Last Taken Unknown] cyclobenzaprine 5 mg tablet 5 mg PO TID PRN muscle spasm #21 tabs 11/26/23 [Rx Last Taken Unknown] gabapentin 100 mg capsule 100 mg PO DAILY 11/26/23 [History Last Taken Unknown] Allergy/AdvReac Type Severity Reaction Status Date / Time Penicillins Allergy swelling Verified 11/26/23 23:18 in throat vancomycin Allergy Itching Verified 11/26/23 23:18 metronidazole AdvReac Nausea Verified 11/26/23 23:18 oxycodone [From OxyContin] AdvReac Shortness Verified 11/26/23 23:18 of breath Family History Mother Diabetes CVA (cerebral vascular accident) Brother CAD (coronary artery disease) CABG X 3 Cancer testicular Diabetes Brother CAD (coronary artery disease) CABG X3 Diabetes Brother CAD (coronary artery disease) Stents Diabetes Sister CAD (coronary artery disease) CABG x 3 CVA (cerebral vascular accident) Diabetes Surgical History History of bilateral carpal tunnel release History of History of coronary artery stent placement (12/31/20) History of foot surgery History of rotator cuff surgery Social History household members: none number of children: 2 current occupational status: disabled Smoking Status: Never smoker alcohol intake: never substance use type: does not use caffeine: Yes Type: carbonated beverages Number of servings: 2 EXAM Physical Exam Const Vital Signs: 11/26/23 23:18 Temperature 97.8 F Temperature Source Temporal Pulse Rate 96 Respiratory Rate 16 Blood Pressure 159/86 H Blood Pressure Mean 110 Pulse Ox 99 MDM MDM MDM Narrative Medical decision making narrative: HISTORY OF PRESENT ILLNESS: 58-year-old female presents with back pain. States she has had back pain for years but is worse for last 2 days. Denies any falls. Notes taking Vicodin and Percocet at home without relief. Notes she has dialysis Tuesday. Last session was Tuesday where she completed entire dialysis treatment. Notes she does not make urine as such has had no dysuria or change in urinary habits. Patient denies any saddle anesthesia, urinary tension, bowel or bladder incontinence, lower extremity weakness, fever or IV drug use, no recent spinal manipulation or surgery, no recent urinary catheterization. REVIEW OF SYSTEMS: All other systems reviewed and are negative except as noted in the history of present illness. At least 10 review of systems reviewed and are negative except as noted in history of present illness. PHYSICAL EXAM: Nursing triage notes reviewed, Vital signs reviewed Constitutional: please see mdm HENT: MMM Eyes: Pupils equal round and reactive to light, Extraocular muscles intact Neck: No stridor, no JVD, full neck ROM Lungs: Clear to auscultation, No wheezing or rales. No increased work of breathing, no conversational dyspnea, no accessory muscle use, no nasal flaring. No respiratory distress noted Heart: Regular rate and rhythm, No murmurs, No rubs and No gallops, 2+ distal pulses (radial, femoral, posterior tibial) in all extremities, right chest port noted clean dry intact. Abdomen: Soft, there is no tenderness, rigidity, rebound or guarding, no obvious peritoneal signs, no palpable pulsatile abdominal masses, no auscultated abdominal bruit : No CVAT Extremities: No edema Back: No midline step-offs or deformities Neuro: Intact sensation L1-S1 dermatomal distributions. Intact 5/5 strength in hip flexion (T12-L3). Knee extension (L2-L4). Ankle dorsiflexion (L4-L5). Ankle plantar flexion (S1). Great toe extension (L5). 2+ patellar and Achilles DTRs. Skin: Midline scar noted to the back that is clean dry intact with no fluctuance induration crepitus or bullae. MEDICAL DECISION MAKING: Chief Complaint: Back pain External records reviewed: Imaging studies reviewed: MRI of the spine from April 2022 shows herniated disc, spinal stenosis, severe bilateral facet hypertrophy Factors affecting care: Type 2 diabetes, history of lumbar herniated disc, ESRD Social determinants of health: No IV drug use History obtained from others: none Consults: none PDMP reviewed: Multiple opiate prescriptions by multiple providers most recent prescription was for Percocet filled on 11/22/2023 for 10-day supply. (Of note patient has an allergy to oxycodone) MDM Narrative: Patient was hemodynamically stable, afebrile, nontoxic-appearing. Exam without obvious focal deficits, there is a midline scar to the lumbar spine that is clean dry intact appears old with no fluctuance or induration noted. There is no step-offs or deformities. I considered the following differential diagnosis: Musculoskeletal back pain, space-occupying lesion of the spinal (epidural abscess, epidural hematoma), cauda equina, conus medullaris, fracture dislocation, AAA, nephrolithiasis, pyelonephritis, aortic dissection The patient presented complaining of back pain. There was no history of recent fall or trauma. There was no evidence to support genitourinary etiology. There is also no evidence to suggest vascular pathology such as AAA dissection. No fevers or other evidence to suspect infectious processes, abscess, osteomyelitis etc. The patient?s neurological exam is normal with normal motor and sensory. There is no saddle paresthesias reported and no bowel or bladder incontinence or retention. I suspect the pain is mechanical in nature. Clinical suspicion, plan of care and management was discussed with the patient. The patient was instructed to follow up with their health care provider. The patient was also instructed to return if the pain worsened, changed, or developed weakness or bowel or bladder trouble. The patient agreed with plan. I completed a structured, evidence-based clinical evaluation to screen for acute non-traumatic spinal emergencies. The patient has a normal detailed neurologic exam and red flag historical factors were negative. The evidence indicates that the patient is very low risk for an acute spinal emergency and this is consistent with my clinical intuition. The risk of further workup is higher than the likelihood of the patient having a spinal epidural abscess or other dangerous emergency spinal condition. It is, therefore, in the patient?s best interest not to do additional emergent testing at this time. Shared Decision-Making I have discussed with the patient my clinical impression and the result of an evidence-based clinical evaluation to screen for spinal epidural abscess and other spinal emergencies, as well as the risk of further testing and hospitalization. The evidence shows that the risk for an acute spinal emergency is less than 1%. Although the risk of an acute spinal emergency has not been completely eliminated, the risks of further testing likely exceed any potential benefit, and the patient agrees with not pursuing further emergent evaluation for causes of back pain at this time. The patient and/or family, caregivers express understanding. The patient and/or family, caregivers agrees with the plan. Total critical care time today provided was at least 0 minutes. This excludes separately billable procedures. Critical care time (if documented) is secondary to the patient having high probability of clinically significant/life threatening deterioration in the patient's condition which required my urgent intervention. Impression: 1. Acute on chronic back pain 2. Lumbar radiculopathy Disposition: Discharge home Maurice Kay DO Discharge Plan Triage Chief Complaint: Back ED Provider: Maurice Kay Dx/Rx/DC Orders Instructions: ED Back Sprain/Strain Prescriptions: New cyclobenzaprine 5 mg tablet 5 mg PO TID PRN (Reason: muscle spasm) Qty: 21 0RF No Action atorvastatin 80 mg tablet 80 mg PO QHS Qty: 90 3RF paroxetine HCl 20 mg tablet 20 mg PO DAILY Patient Comments: TAKE 1 TABLET BY MOUTH EVERY DAY IN THE EVENING bupropion HCl 150 mg tablet extended release 24 hr 150 mg PO DAILY Patient Comments: TAKE 1 TABLET BY MOUTH EVERY DAY sennosides-docusate sodium [Stool Softener-Stimulant Laxat] 8.6-50 mg Tablet 2 tab PO BID PRN PRN (Reason: Constipation) Qty: 0 0RF ascorbic acid (vitamin C) [Vitamin C] 500 mg Tablet 500 mg PO BID folic acid 400 mcg Tablet 400 mcg PO DAILY clopidogrel 75 mg tablet 75 mg PO DAILY pantoprazole 40 mg tablet,delayed release (DR/EC) 40 mg PO BIDCM ferrous sulfate 325 mg (65 mg iron) tablet 325 mg PO DAILY isosorbide dinitrate 10 mg Tablet 10 mg PO TID Qty: 0 0RF insulin lispro [Humalog KwikPen Insulin] 100 unit/mL Insulin Pen See Protocol subcut TIDAC Qty: 0 0RF Protocol: 1. Sliding Scale Insulin Low Dosing Condition: 150-224 mg/dl = 1 unit Condition: 225-299 mg/dl = 2 units Condition: 300-374 mg/dl = 3 units Condition: 375-499 mg/dl = 4 units Condition: Greater than 449 call physician Protocol Text: - Use for Total Daily Dose of Insulin 15-27 units - Thin, elderly, renal patients LOW DOSING ALGORITHM insulin glargine-yfgn 100 unit/mL (3 mL) insulin pen 5 unit subcut QHS Qty: 15 0RF Rx Instructions: Hold if glucose less than 130 mg/dl clindamycin HCl 300 mg capsule 300 mg PO 4X/DAY 10 Days Qty: 40 0RF gabapentin 100 mg capsule 100 mg PO DAILY Primary Care Provider: Raúl Eric Referrals: Enoc Garrison MD [Med Staff - Active Staff] - Activity Restrictions/Additional Instructions: Thank you for trusting us with your care today! Please take Tylenol (2 pills, 650 mg), ibuprofen (2 pills, 400 mg) every 6 hours as needed for pain and fever control. Please return to the emergency department if your symptoms change or worsen. Specific if develop bowel or bladder incontinence, urinary retention, saddle anesthesia, inability to move or feel your legs. Please follow with [facility] (Dr. Garrison) for further outpatient evaluation and management. Disposition Disposition: Home, Self Care
[2023-11-27] MEDS: Orphenadrine 60 MG/2 ML Ampul IM (00:05)
[2023-11-27 00:07] VITALS: BP 127/63; PULSE 54; RESP 16; TEMP 36.3; O2SAT 98
== END 2023-11-27 00:34 | disposition home or self-care (01) ==
PROVIDERS: Emergency Provider Emergency Medicine; PCP Family Medicine; Visit Provider Emergency Medicine
DX: M54.16 Radiculopathy, lumbar region (principal); Z99.2 Dependence on renal dialysis; E11.22 Type 2 diabetes mellitus with diabetic chronic kidney disease; E11.42 Type 2 diabetes mellitus with diabetic polyneuropathy; N18.6 End stage renal disease; I12.0 Hypertensive chronic kidney disease with stage 5 chronic kidney disease or end stage renal disease; I25.10 Atherosclerotic heart disease of native coronary artery without angina pectoris; G89.29 Other chronic pain
CPT/HCPCS: 96372; 99282

== ENCOUNTER → 2023-12-01 | Outpatient (CLI) | payer MEDICARE, MEDICAID, SELFPAY ==
[2018-09-21 13:23] VITALS: BMI 29.3
--- NOTE | 2023-12-01 07:30 | CT_ITS ---
STUDY: CT THORACIC SPINE WITHOUT CONTRAST REASON FOR EXAM: Female, 58 years old. Osteomyelitis of vertebra, thoracolumbar region RADIATION DOSAGE (If Supplied By Facility): CTDIvol = ( 19.23 ) mGy, DLP = ( 1374.59 ) mGycm TECHNIQUE: The patient was scanned in a multi detector CT scanner. High resolution imaging was performed. Images were obtained from T1 to L1 vertebral level. Sagittal and coronal images were reconstructed. Individualized dose optimization techniques were used for this CT. COMPARISON: Comparison is made with prior radiographs dated October 25, 2023. FINDINGS: Small right pleural effusion with right basilar atelectasis and/or infiltration. There is straightening of the normal thoracic kyphosis. There is no substantial scoliosis. There is multilevel endplate spondylosis of the thoracic spine. There is multilevel degenerative disc disease with loss of the disc space heights. The patient is status post fusion with screw and the elinor fixation device at the T10-T11, the 11th T12 and T12-L1. Metallic cage is replacing the body of the T12 vertebrae. The soft tissue structures are unremarkable. CT/Spine Thoracic without Contras IMPRESSION: Status post fusion of the lower thoracic and upper lumbar spine as described. Small right pleural effusion with right basilar infiltration and/or atelectasis. Electronically Signed: Ronnie Saavedra MD at 8:43 EST ,
--- NOTE | 2023-12-01 07:30 | CT_ITS ---
STUDY: CT LUMBAR SPINE WITHOUT CONTRAST REASON FOR EXAM: Female, 58 years old. Osteomyelitis of vertebra, thoracolumbar region RADIATION DOSAGE (If Supplied By Facility): CTDIvol = ( 19.23 ) mGy, DLP = ( 1374.59 ) mGycm TECHNIQUE: The patient was scanned in a multi detector CT scanner. High resolution transaxial imaging was performed. Images were obtained from T12 to L1 vertebral level. Sagittal and coronal images were reconstructed. Individualized dose optimization techniques were used for this CT. COMPARISON: None FINDINGS: Small right pleural effusion with right basilar atelectasis. Normal lumbar lordosis. There is no substantial scoliosis. The patient is status post interpedicular screw and elinor fixation in the lower thoracic and upper lumbar vertebrae. Prostatic metallic cages seen at the T12 and L1 vertebrae. There is fusion at that level. Limited assessment of the T12 vertebra due to the metallic artifact from the surgical procedure. L1-2: Intraventricular screw fixation. Metallic cages seen in the superior aspect of the L1 vertebrae. L2-3: Normal endplates. Normal disc height and morphology. Normal bilateral facet joints. Normal central canal and bilateral lateral recesses. Normal bilateral intervertebral neural foramina. L3-4: Facet joint osteoarthritis. [id number] diffuse posterior disc bulge. L4-5: Moderate degree of facet joint osteoarthritis and hypertrophy. Diffuse posterior disc bulge. Moderate degree of bilateral neural foraminal stenosis. Central canal stenosis due to hypertrophy of the ligamenta flava as well as the facet joints and diffuse posterior disc bulge. L5-S1: Disc space narrowing. No significant stenosis is seen. Normal visualized paraspinous soft tissue structures. CT/Spine Lumbar without Contrast IMPRESSION: Postoperative fusion at the T12-L1 vertebrae with a prosthetic cage of the T12 vertebrae. Multilevel degenerative changes. Spinal stenosis at the L4-L5 level due to posterior disc bulge as well as facet joint osteoarthritis and hypertrophy and hypertrophy of the ligamentum flavum. Electronically Signed: Ronnie Saavedra MD at 8:40 EST ,
== END | disposition home or self-care (01) ==
PROVIDERS: PCP Family Medicine
DX: M46.25 Osteomyelitis of vertebra, thoracolumbar region (principal)
CPT/HCPCS: 72128; 72131

== ENCOUNTER 2023-12-15 22:10 | Emergency (ER) | payer MEDICARE, MEDICAID, SELFPAY ==
[2018-09-21 13:23] VITALS: BMI 29.3
[2023-12-15 22:11] VITALS: BP 153/75; PULSE 123; RESP 18; TEMP 37.7; O2SAT 94; BMI 28.8
[2023-12-15 22:15] VITALS: BP 159/68; PULSE 123; RESP 18; TEMP 37.7; O2SAT 94
--- NOTE | 2023-12-15 22:52 | EKG12_ITS ---
Test Reason : WOUND Blood Pressure : / mmHG Vent. Rate : 127 BPM Atrial Rate : 127 BPM P-R Int : 146 ms QRS Dur : 086 ms QT Int : 324 ms P-R-T Axes : 066 024 024 degrees QTc Int : 470 ms Sinus tachycardia Nonspecific ST abnormality Abnormal ECG BASELINE ARTIFACT Confirmed by Kayden Elaine ([id number]), photograph editor DAVID CARCAMO ([id number]) on 12/19/2023 2:10:30 PM Referred By: ANGELO Confirmed By:Kayden Elaine
--- NOTE | 2023-12-15 22:52 | EX.ED.DYSGE1 ---
HPI History of Present Illness Chief Complaint: General Illness Detail of Chief Complaint: Back pain Informant: patient Onset/Context/Timing Onset: Days Context: Gradual Onset Timing: Continuous Current Severity: Mild Maximum Severity: Moderate Narrative Narrative: 50-year-old female history of diabetes, end-stage renal disease on dialysis. Last dialysis was yesterday. She has right foot ulceration had recent podiatry debridement. Says she has not felt well for several days with diffuse mid and lower back pain. Prior history of this about 2 years ago when she had some sort of back infection, was septic and had back surgery for it. That was at [facility]. She denies any dysuria still makes urine once or twice a day. Denies any abdominal pain. Thinks she had a low-grade fever. Prior similar symptoms: Yes Recent Illness/Hospitalization: No PFSH [facility] Medical History Acquired varus deformity of left foot Acquired varus deformity of right foot Acute lumbar radiculopathy Acute on chronic anemia Adult failure to thrive Amputation foot, bilat Anemia due to chronic illness Anemia in chronic illness Anxiety and depression Atherosclerosis of [place] coronary artery of [place] heart without angina pectoris Back pain, chronic Bilateral edema of lower extremity Cellulitis Cellulitis of both lower extremities Charcot's joint of right foot Charcot's joint, left ankle and foot Charcot's joint, right ankle and foot Chronic foot pain Chronic kidney disease, stage 3b Chronic kidney disease, stage 4 (severe) Chronic renal disease, stage 4, severely decreased glomerular filtration rate (GFR) between 15-29 mL/min/1.73 square meter Chronic renal insufficiency Chronic ulcer of left foot with fat layer exposed 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 Chronic ulcer of right foot with fat layer exposed Chronic ulcer of right foot with necrosis of bone Chronic ulcer of right foot with necrosis of muscle Chronic ulcer of right leg with fat layer exposed COVID-19 (08/28/21) CRF (chronic renal failure) Debility Delayed wound healing Diabetes Diabetes mellitus with diabetic polyneuropathy Diabetic foot ulcer associated with type 2 diabetes mellitus Diabetic foot ulcers Diabetic infection of left foot Diabetic polyneuropathy Diabetic ulcer of right ankle Elevated troponin End stage renal disease Essential (primary) hypertension Essential hypertension Foot osteomyelitis, left GERD (gastroesophageal reflux disease) Hemoglobin A1c greater than 9.0% HLD (hyperlipidemia) Hyperparathyroidism, secondary renal Hypertension Iron deficiency anemia Ischemic cardiomyopathy Myocardial infarct Non-compliance Non-pressure chronic ulcer of other part of left foot with fat layer exposed Non-pressure chronic 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 layer exposed Non-smoker Normocytic anemia NSTEMI (non-ST elevated myocardial infarction) (09/20/18) Obesity (BMI 30.0-34.9) Osteomyelitis Osteomyelitis of left foot Osteomyelitis of metatarsal RLS (restless legs syndrome) Stage 4 chronic kidney disease TIA (transient ischemic attack) Type 2 diabetes mellitus 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 Ulcer of left foot with fat layer exposed Ulcer of left foot with muscle involvement without evidence of necrosis Ulcer of left foot with necrosis of muscle Ulcer of right lower extremity with fat layer exposed Home Medications atorvastatin 80 mg tablet 80 mg PO QHS cholesterol #90 tabs 11/30/19 [Rx Last Taken 04/07/22] paroxetine HCl 20 mg tablet 20 mg PO DAILY DEPRESSION 07/07/21 [History Last Taken 04/07/22] bupropion HCl 150 mg 24 hr tablet, extended release 150 mg PO DAILY mood 02/04/22 [History Last Taken 04/07/22] sennosides 8.6 mg-docusate sodium 50 mg tablet (Stool Softener-Stimulant Laxative) 2 tab PO BID PRN PRN Constipation #0 tabs 04/24/22 [Rx Last Taken Unknown] ascorbic acid (vitamin C) 500 mg tablet (Vitamin C) 500 mg PO BID supplement 05/05/22 [History Last Taken Unknown] clopidogrel 75 mg tablet 75 mg PO DAILY prevent stroke 07/19/22 [History Last Taken Unknown] ferrous sulfate 325 mg (65 mg iron) tablet 325 mg PO DAILY anemia 07/19/22 [History Last Taken Unknown] folic acid 400 mcg tablet 400 mcg PO DAILY supplement 07/19/22 [History Last Taken Unknown] pantoprazole 40 mg tablet,delayed release 40 mg PO BIDCM GERD 07/19/22 [History Last Taken Unknown] insulin glargine-yfgn 100 unit/mL (3 mL) subcutaneous pen 5 unit (0.05 mL) subcut QHS blood sugar #15 mL 07/21/22 [Rx Last Taken Unknown] insulin lispro 100 unit/mL subcutaneous pen (Humalog KwikPen (U-100) Insulin) See Protocol subcut TIDAC #0 mL 07/21/22 [Rx Last Taken Unknown] isosorbide dinitrate 10 mg tablet 10 mg PO TID #0 tabs 07/21/22 [Rx Last Taken Unknown] clindamycin HCl 300 mg capsule 300 mg PO 4X/DAY 10 days #40 caps 10/25/23 [Rx Last Taken Unknown] cyclobenzaprine 5 mg tablet 5 mg PO TID PRN muscle spasm #21 tabs 11/26/23 [Rx Last Taken Unknown] gabapentin 100 mg capsule 100 mg PO DAILY 11/26/23 [History Last Taken Unknown] Allergy/AdvReac Type Severity Reaction Status Date / Time Penicillins Allergy swelling Verified 12/15/23 22:17 in throat vancomycin Allergy Itching Verified 12/15/23 22:17 metronidazole AdvReac Nausea Verified 12/15/23 22:17 oxycodone [From OxyContin] AdvReac Shortness Verified 12/15/23 22:17 of breath Family History Mother Diabetes CVA (cerebral vascular accident) Brother CAD (coronary artery disease) CABG X 3 Cancer testicular Diabetes Brother CAD (coronary artery disease) CABG X3 Diabetes Brother CAD (coronary artery disease) Stents Diabetes Sister CAD (coronary artery disease) CABG x 3 CVA (cerebral vascular accident) Diabetes Surgical History History of bilateral carpal tunnel release History of History of coronary artery stent placement (12/31/20) History of foot surgery History of rotator cuff surgery Social History household members: none number of children: 2 current occupational status: disabled Smoking Status: Never smoker alcohol intake: never substance use type: does not use caffeine: Yes Type: carbonated beverages Number of servings: 2 ROS ROS ED ROS Narrative Back pain. Low-grade fever. General malaise. Review of Systems ROS Unobtainable: Denies due to encephalopathy Constitutional Constitutional ED: Reports chills and fever(s) Eyes Eyes: Denies blurry vision ENT ENT ED: Denies ear pain, rhinorrhea or sore throat Cardiovascular Cardiovascular: Denies chest pain or palpitations Respiratory/Chest Respiratory/Chest: Denies cough, dyspnea or dyspnea on exertion Gastrointestinal Gastrointestinal: Denies abdominal pain, constipation, diarrhea, melena, nausea or vomiting Genitourinary Genitourinary ED: Denies dysuria or hematuria Musculoskeletal Musculoskeletal: Reports back pain; Denies arthralgias, myalgias or neck pain Integumentary Denies abscess or Abrasions Neurologic Neurologic: Reports headache(s); Denies paresthesias Psychiatric Psychiatric: Denies anxiety or depression Endocrine Endocrinology: Denies cold intolerance or heat intolerance Hematologic/Lymphatic Hematologic/Lymphatic: Reports none; Denies systems reviewed and no addt'l complaints, except as documented Allergic/Immunologic Allergic/Immunologic ED: Denies mouth swelling, tongue swelling or urticaria EXAM Physical Exam Narrative Exam Narrative: 38-year-old female vital signs stable she does have a low-grade temperature nine 9.8. HEENT exam unremarkable. Neck nontender. Lungs clear to auscultation bilaterally. Heart tachycardic rate about 120. No murmur. Chest wall and ribs nontender. Abdomen soft nontender. Moving all 4 extremities. Nontender no edema. She has an ulceration on the bottom of her right foot consistent with a diabetic ulcer about the size of a quarter. It has been debrided. Currently there is no significant pus or redness. There is no fluctuance. Neurologically she is awake and alert no focal motor deficits. Back she has a well-healed thoracic and lumbar old scar. She has tenderness in that area but there is no redness or warmth. Const Vital Signs: 12/15/23 22:11 12/15/23 22:15 12/15/23 23:15 Temperature 99.8 F H 99.8 F H Temperature Source Oral Oral Pulse Rate 123 H 123 H Respiratory Rate 18 18 Respiratory Effort Respiratory Pattern Blood Pressure 153/75 H 159/68 H Blood Pressure Mean 101 98 Pulse Ox 94 94 Oxygen Delivery Method Room Air Room Air Room Air 12/15/23 23:16 12/15/23 23:55 12/15/23 23:55 Temperature 98.9 F 98.9 F Temperature Source Oral Oral Pulse Rate 130 H 131 H Respiratory Rate 21 H 16 Respiratory Effort Normal Respiratory Pattern Normal Blood Pressure 143/107 H 143/107 H Blood Pressure Mean 119 119 Pulse Ox 95 94 Oxygen Delivery Method Room Air Room Air Positive well nourished and well developed; Negative for cachectic, contractures or unkempt General Appearance ED: well developed and NAD; Negative for unkempt, cachectic, contractures, cyanotic, diaphoretic or pallor Nutritional Appearance: Negative for cachectic HEENT Reports moist mucous membranes Negative for trauma or tenderness Eyes PERRL and EOMs intact bilaterally General Eye ED: Negative for pale conjunctiva or scleral icterus Neck no lymphadenopathy, supple and no JVD General: Negative for tenderness Lymph Lymphatic: Negative for other Chest Wall inspection of chest normal and palpation of chest normal Chest: Negative for other Resp normal respiratory effort and clear to auscultation bilaterally Effort and Inspection: Negative for retractions Auscultation: Negative for rales, rhonchi or wheezes Cardio regular rhythm, S1 normal heart sound, S2 normal heart sound and no murmurs; Negative for regular rate Rate: tachycardic Rhythm: Negative for abnormal rhythm GI normal to inspection, nondistended, normoactive bowel sounds, non-tender, non-distended and no masses Inspection: Negative for abdominal distention Auscultation: normoactive bowel sounds Palpation: soft; Negative for tender or guarding Back/Spine no CVA tenderness Back/Spine Narrative: Well-healed spinal incision of the thoracic and lumbar spine. Diffuse tenderness in that area but no redness or warmth. No drainage. General Back: Negative for CVA tenderness Cervical Spine: Negative for cervical spine tenderness Thoracic Spine / Upper Back: thoracic spinal tenderness Lumbar Spine / Lower Back: lumbar spinal tenderness Extremity Negative for normal to inspection Extremity Narrative: Bottom of right foot quarter sized ulcer. No pus, fluctuance or redness. Minimal swelling. General Extremety ED: Negative for tenderness Neuro oriented x3, CN's II-XII intact bilaterally and No no sensory deficits noted Neuro Narrative: Diabetic neuropathy in her feet. Sensorium / Orientation: alert Motor Exam: strength 5/5 throughout; Negative for general weakness Psych mental status grossly normal Appearance: Negative for unkempt Attitude: No agitated Mood & Affect: Negative for depressed, anxious or tearful Skin no rashes or lesions noted and no wounds General Skin Exam: Negative for jaundice or pallor Lesions: No lesion noted Rashes: No rashes noted Trauma: Negative for abrasion MDM MDM MDM Narrative Medical decision making narrative: 58-year-old who appears ill. Undergo a septic workup. She has had prior spinal infection with back surgery 2 years ago. That may be possibly the case again today. Versus other causes of infection. Repeat exam unchanged. Patient remains tachycardic but she is afebrile currently 90.9. Her exam is unchanged. We went over her test which are basically her chronic baseline. There is no obvious sign of acute infection. Her recent CTs of her lumbar and thoracic spine show a lumbar disc but no signs of infection. She and I discussed outpatient follow-up with her primary care physician and shows an appointment to see her spine surgeon from [place]. They may need to get additionally an MRI of her back to rule out infection that may not been picked up on the CT. Currently she is on an antibiotic for her diabetic foot ulcer. She is comfortable being discharged home. I did speak to the physician on-call for her primary care physician, Dr. Hackett. We discussed the patient's past medical history and need of outpatient follow-up and possibly a lumbar and thoracic MRI for further evaluation to rule out any type of spine infection. There are no signs of that tonight. History & Record Review Discussion w/independent historian: Patient Additional record(s) reviewed:: Prior inpatient record, Prior outpatient record, Prior ED visit, Prior labs and No prior records Lab Data Attestation: I reviewed the patient's lab results. Lab results narrative: CBC white count of 11.0. H&H 8.3 and 26.8 she has a baseline chronic anemia. Platelets 247. PT/INR 14 and 1. PTT 31. Electrolytes show a gap of 8. BUN 46 creatinine of 5 she is a history of end-stage renal disease. Glucose elevated at 429. Anion gap is 8. Liver enzymes are unremarkable. UA negative. Sedimentation rate was elevated at 36 but previously was 62. Lactic acid is 1.7. I have reviewed the patient's old labs and imaging. She has had a recent CT lumbar spine and thoracic spine which she told me and those were read as chronic changes. They did not see any obvious signs of infection. Labs: Laboratory Results - last 24 hr 12/15/23 12/15/23 23:25 23:27 WBC 11.0 RBC 2.71 L Hgb 8.3 L Hct 26.8 L MCV 98.9 MCH 30.6 MCHC 31.0 L RDW Std Deviation 53.6 H RDW Coeff of Fior 15.5 H Plt Count 247 MPV 10.0 Immature Gran % (Auto) 0.400 Neut % (Auto) 91.7 H Lymph % (Auto) 3.3 L [place] % (Auto) 3.4 Eos % (Auto) 1.0 Baso % (Auto) 0.2 Absolute Neuts (auto) 10.1 H Absolute Lymphs (auto) 0.36 L Nucleated RBC % 0 ESR 36 H PT 14.6 INR 1.1 APTT 31.8 Sodium 137 Potassium 4.5 Chloride 101 Carbon Dioxide 28.0 Anion Gap 8 BUN 46 H Creatinine 5.00 H Estim Creat Clear Calc 13.17 Est GFR (MDRD) Af Amer 11 L Est GFR (MDRD) Non-Af 9 L BUN/Creatinine Ratio 9.2 L Glucose 429 H Lactic Acid 1.7 Calcium 8.2 L Total Bilirubin 0.50 AST 20 ALT 29 Alkaline Phosphatase 238 H Total Protein 7.3 Albumin 3.2 Globulin 4.1 Albumin/Globulin Ratio 0.8 L Urine Color Yellow Urine Clarity Clear Urine pH 7.0 Ur Specific [place] 1.010 Urine Protein 500 H Urine Glucose (UA) 1000 H Urine Ketones Negative Urine Occult Blood 25 H Urine Nitrite Negative Urine Bilirubin Negative Urine Urobilinogen Normal Ur Leukocyte Esterase Negative Urine RBC 0 SEEN Urine WBC 0 SEEN Ur Squamous Epith Cells 0 SEEN Urine Bacteria 0 SEEN Hyaline Casts 0-5 SEEN Urine Mucus 0 SEEN Radiography Chest X-Ray - ED: 1 View, Read by ED Physician, Read by Radiologist, Heart, Lungs, Mediastinum, Bony Structures, No Acute Disease and Chronic Changes Diagnostic Testing: Clinical Impression(s) from Imaging Studies Chest X-Ray 12/15/23 23:42 IMPRESSION: No acute pulmonary finding. Electronically Signed: Rodney Cheung MD at 23:58 EST Reading Location ID and State: [address] [place] [address] Tel , Service support , Chest x-ray, portable, single view interpreted by myself shows normal cardiac silhouette. Normal lung pena. No infiltrates. No effusions. Right-sided Vas-Cath. Metallic spine rods. Rhythm Strip Rhythm Strip: Sinus Tach Rate: 127 Ectopy: None EKG Initial EKG: Attestation: I personally reviewed and interpreted this EKG as follows: Interpretation: Sinus Tachycardia Comments: Sinus tachycardia rate of 127 no acute signs of [place] or ischemia. Discharge Plan Triage Chief Complaint: General Illness ED Provider: Sachin Schmitz Dx/Rx/DC Orders Clinical Impression: Diabetic foot ulcer, Back pain, History of renal dialysis, History of end stage renal disease, History of spinal surgery, History of diabetes mellitus Instructions: ED Back and Neck Pain, General Prescriptions: No Action atorvastatin 80 mg tablet 80 mg PO QHS Qty: 90 3RF paroxetine HCl 20 mg tablet 20 mg PO DAILY Patient Comments: TAKE 1 TABLET BY MOUTH EVERY DAY IN THE EVENING bupropion HCl 150 mg tablet extended release 24 hr 150 mg PO DAILY Patient Comments: TAKE 1 TABLET BY MOUTH EVERY DAY sennosides-docusate sodium [Stool Softener-Stimulant Laxat] 8.6-50 mg Tablet 2 tab PO BID PRN PRN (Reason: Constipation) Qty: 0 0RF ascorbic acid (vitamin C) [Vitamin C] 500 mg Tablet 500 mg PO BID folic acid 400 mcg Tablet 400 mcg PO DAILY clopidogrel 75 mg tablet 75 mg PO DAILY pantoprazole 40 mg tablet,delayed release (DR/EC) 40 mg PO BIDCM ferrous sulfate 325 mg (65 mg iron) tablet 325 mg PO DAILY isosorbide dinitrate 10 mg Tablet 10 mg PO TID Qty: 0 0RF insulin lispro [Humalog KwikPen Insulin] 100 unit/mL Insulin Pen See Protocol subcut TIDAC Qty: 0 0RF Protocol: 1. Sliding Scale Insulin Low Dosing Condition: 150-224 mg/dl = 1 unit Condition: 225-299 mg/dl = 2 units Condition: 300-374 mg/dl = 3 units Condition: 375-499 mg/dl = 4 units Condition: Greater than 449 call physician Protocol Text: - Use for Total Daily Dose of Insulin 15-27 units - Thin, elderly, renal patients LOW DOSING ALGORITHM insulin glargine-yfgn 100 unit/mL (3 mL) insulin pen 5 unit subcut QHS Qty: 15 0RF Rx Instructions: Hold if glucose less than 130 mg/dl clindamycin HCl 300 mg capsule 300 mg PO 4X/DAY 10 Days Qty: 40 0RF gabapentin 100 mg capsule 100 mg PO DAILY cyclobenzaprine 5 mg tablet 5 mg PO TID PRN (Reason: muscle spasm) Qty: 21 0RF Primary Care Provider: Raúl Hackett Referrals: Raúl Hackett MD [Primary Care Provider] - As soon as possible Activity Restrictions/Additional Instructions: I spoke to the physician on-call for your primary care physician Dr. Hong tompkins. Call their office tomorrow to get in to be seen as soon as possible. They may strongly consider a MRI of your thoracic and lumbar spine for further evaluation of your back, your protruding disc and to rule out any signs of infection. Your recent CAT scans did not show any infection but that could be missed on the CAT scan. Your labs tonight were unremarkable. Continue your current antibiotic. Call and follow-up with your spine surgeon in [place] as soon as possible. See if they can move up the appointment. Return if feeling worse. Disposition Disposition: Home, Self Care
[2023-12-15 23:35] LABS: Absolute Lymphocyte Count 0.36 X10^3/uL (0.83-4.51); Absolute Neutrophil Count 10.1 X10^3/uL (2.0-7.7); Basophil# 0.02 X10^3/uL; Basophil% 0.2 % (0-1); Eosinophil# 0.11 X10^3/uL; Hematocrit 26.8 % (37-47); Hemoglobin 8.3 g/dL (12.0-15.0); Lymphocyte # 0.36 X10^3/ul (0.83-4.51); Lymphocyte % 3.3 % (19-41); Mean Corpuscular Hgb 30.6 pg (27.0-32.0); Mean Corpuscular Volume 98.9 fL (81-99); Monocyte# 0.37 X10^3/uL; Monocyte% 3.4 % (0-10); NRBC Flagged by Analyzer 0 % (0-5); Neutrophil # 10.13 X10^3/uL (2.7-7.7); Neutrophil % 91.7 % (47-70); POSITIVE DIFFERENTIAL YES; Platelet Count 247 K/mm3 (150-450); RBC Distribution Width CV 15.5 % (11.6-14.6); RBC Distribution Width SD 53.6 fl (35.1-43.9); Red Blood Count 2.71 M/mm3 (4.2-5.4)
--- NOTE | 2023-12-15 23:42 | RAD_ITS ---
INDICATION: malaise EXAMINATION/TECHNIQUE: X-RAY - XR Chest 1 View COMPARISON: No relevant prior comparison study available FINDINGS: LINES/DEVICES: None. LUNGS: The lungs are well expanded. No consolidation, edema or effusion. No pneumothorax. MEDIASTINUM AND CARDIOVASCULAR STRUCTURES: Cardiac silhouette not enlarged. Central airways and mediastinal contour are unremarkable. BONES AND SOFT TISSUES: No acute osseous abnormalities. RAD/Chest 1 View (Portable) IMPRESSION: No acute pulmonary finding. Electronically Signed: Rodney Cheung MD at 23:58 EST ,
[2023-12-15 23:44] LABS: International Normalized Ratio 1.1; Prothrombin Time (Protime)PT. 14.6 SECONDS (11.7-14.9)
[2023-12-15 23:45] LABS: Partial Thromboplast Time 31.8 Seconds (24.1-36.2)
[2023-12-15 23:47] LABS: Erythrocyte Sedimentation Rate 36 mm/hr (0-30)
[2023-12-15 23:53] LABS: ALB/GLOB Ratio 0.8 RATIO (0.9-2.4); AST(SGOT) 20 U/L (15-37); Alanine Aminotransfer ALT/SGPT 29 U/L (13-56); Albumin, Serum 3.2 g/dL (3.2-5.0); Alkaline Phosphatase 238 U/L (45-117); Anion Gap 8 (5-15); BUN 46 mg/dL (7-18); BUN/Creat Ratio 9.2 RATIO (10-20); Calcium,Total 8.2 mg/dL (8.5-10.1); Chloride 101 mmol/L (98-107); EST Glomerular Filtration Rate 9 mL/min (>60); Est Glom Filt Rate - Afr Amer 11 mL/min (>60); Estimated Creatinine Clearance 13.17 ml/min; Globulin 4.1 g/dL (2.2-4.2); Glucose 429 mg/dL (74-106); Potassium 4.5 mmol/L (3.5-5.1); Protein, Total 7.3 g/dL (6.4-8.2); Sodium Level 137 mmol/L (136-145)
[2023-12-15 23:55] VITALS: BP 143/107; PULSE 130; PULSE 131; RESP 16; RESP 21; TEMP 37.2; O2SAT 94; O2SAT 95
[2023-12-16 00:01] LABS: Lactic Acid 1.7 mmol/L (0.4-1.9)
[2023-12-16 00:01] LABS: Bacteria 0 SEEN /hpf (None Seen); Mucous, Urine 0 SEEN /hpf (<or=2+); Red Blood Cells-Urine 0 SEEN /hpf (0-5); Squamous Epithelial Cells - UA 0 SEEN /hpf (5-10); White Blood Cells 0 SEEN /hpf (0-5)
[2023-12-16 00:02] LABS: Glucose, Dipstick 1000 mg/dl (Normal); Ketone-Dipstick Negative (Negative); Leukocyte Esterase-Dipstick Negative /ul (Negative); Nitrite-Dipstick Negative (Negative); Occult Blood-Urine 25 /ul (Negative); Protein-Dipstick 500 mg/dl (Negative); Urine Bilirubin Dipstick Negative (Negative); Urine Urobilinogen Normal (Normal)
[2023-12-16 00:06] LABS: Color, Urine Yellow (Yellow); Urine Clarity Clear (Clear)
[2023-12-16 00:11] LABS: Hyaline Cast 0-5 SEEN /lpf (0-5)
[2023-12-16 00:35] VITALS: BP 147/110; PULSE 130; RESP 21; TEMP 36.9; O2SAT 96
--- NOTE | 2023-12-16 00:41 | EDS_ITS ---
HPI History of Present Illness Chief Complaint: General Illness [facility] Medical History Acquired varus deformity of left foot Acquired varus deformity of right foot Acute lumbar radiculopathy Acute on chronic anemia Adult failure to thrive Amputation foot, bilat Anemia due to chronic illness Anemia in chronic illness Anxiety and depression Atherosclerosis of [place] coronary artery of [place] heart without angina pectoris Back pain, chronic Bilateral edema of lower extremity Cellulitis Cellulitis of both lower extremities Charcot's joint of right foot Charcot's joint, left ankle and foot Charcot's joint, right ankle and foot Chronic foot pain Chronic kidney disease, stage 3b Chronic kidney disease, stage 4 (severe) Chronic renal disease, stage 4, severely decreased glomerular filtration rate (GFR) between 15-29 mL/min/1.73 square meter Chronic renal insufficiency Chronic ulcer of left foot with fat layer exposed 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 Chronic ulcer of right foot with fat layer exposed Chronic ulcer of right foot with necrosis of bone Chronic ulcer of right foot with necrosis of muscle Chronic ulcer of right leg with fat layer exposed COVID-19 (08/28/21) CRF (chronic renal failure) Debility Delayed wound healing Diabetes Diabetes mellitus with diabetic polyneuropathy Diabetic foot ulcer associated with type 2 diabetes mellitus Diabetic foot ulcers Diabetic infection of left foot Diabetic polyneuropathy Diabetic ulcer of right ankle Elevated troponin End stage renal disease Essential (primary) hypertension Essential hypertension Foot osteomyelitis, left GERD (gastroesophageal reflux disease) Hemoglobin A1c greater than 9.0% HLD (hyperlipidemia) Hyperparathyroidism, secondary renal Hypertension Iron deficiency anemia Ischemic cardiomyopathy Myocardial infarct Non-compliance Non-pressure chronic ulcer of other part of left foot with fat layer exposed Non-pressure chronic 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 layer exposed Non-smoker Normocytic anemia NSTEMI (non-ST elevated myocardial infarction) (09/20/18) Obesity (BMI 30.0-34.9) Osteomyelitis Osteomyelitis of left foot Osteomyelitis of metatarsal RLS (restless legs syndrome) Stage 4 chronic kidney disease TIA (transient ischemic attack) Type 2 diabetes mellitus 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 Ulcer of left foot with fat layer exposed Ulcer of left foot with muscle involvement without evidence of necrosis Ulcer of left foot with necrosis of muscle Ulcer of right lower extremity with fat layer exposed Home Medications atorvastatin 80 mg tablet 80 mg PO QHS cholesterol #90 tabs 11/30/19 [Rx Last Taken 04/07/22] paroxetine HCl 20 mg tablet 20 mg PO DAILY DEPRESSION 07/07/21 [History Last Taken 04/07/22] bupropion HCl 150 mg 24 hr tablet, extended release 150 mg PO DAILY mood 02/04/22 [History Last Taken 04/07/22] sennosides 8.6 mg-docusate sodium 50 mg tablet (Stool Softener-Stimulant Laxative) 2 tab PO BID PRN PRN Constipation #0 tabs 04/24/22 [Rx Last Taken Unknown] ascorbic acid (vitamin C) 500 mg tablet (Vitamin C) 500 mg PO BID supplement 05/05/22 [History Last Taken Unknown] clopidogrel 75 mg tablet 75 mg PO DAILY prevent stroke 07/19/22 [History Last Taken Unknown] ferrous sulfate 325 mg (65 mg iron) tablet 325 mg PO DAILY anemia 07/19/22 [History Last Taken Unknown] folic acid 400 mcg tablet 400 mcg PO DAILY supplement 07/19/22 [History Last Taken Unknown] pantoprazole 40 mg tablet,delayed release 40 mg PO BIDCM GERD 07/19/22 [History Last Taken Unknown] insulin glargine-yfgn 100 unit/mL (3 mL) subcutaneous pen 5 unit (0.05 mL) subcut QHS blood sugar #15 mL 07/21/22 [Rx Last Taken Unknown] insulin lispro 100 unit/mL subcutaneous pen (Humalog KwikPen (U-100) Insulin) See Protocol subcut TIDAC #0 mL 07/21/22 [Rx Last Taken Unknown] isosorbide dinitrate 10 mg tablet 10 mg PO TID #0 tabs 07/21/22 [Rx Last Taken Unknown] clindamycin HCl 300 mg capsule 300 mg PO 4X/DAY 10 days #40 caps 10/25/23 [Rx Last Taken Unknown] cyclobenzaprine 5 mg tablet 5 mg PO TID PRN muscle spasm #21 tabs 11/26/23 [Rx Last Taken Unknown] gabapentin 100 mg capsule 100 mg PO DAILY 11/26/23 [History Last Taken Unknown] Allergy/AdvReac Type Severity Reaction Status Date / Time Penicillins Allergy swelling Verified 12/15/23 22:17 in throat vancomycin Allergy Itching Verified 12/15/23 22:17 metronidazole AdvReac Nausea Verified 12/15/23 22:17 oxycodone [From OxyContin] AdvReac Shortness Verified 12/15/23 22:17 of breath Family History Mother Diabetes CVA (cerebral vascular accident) Brother CAD (coronary artery disease) CABG X 3 Cancer testicular Diabetes Brother CAD (coronary artery disease) CABG X3 Diabetes Brother CAD (coronary artery disease) Stents Diabetes Sister CAD (coronary artery disease) CABG x 3 CVA (cerebral vascular accident) Diabetes Surgical History History of bilateral carpal tunnel release History of History of coronary artery stent placement (12/31/20) History of foot surgery History of rotator cuff surgery Social History household members: none number of children: 2 current occupational status: disabled Smoking Status: Never smoker alcohol intake: never substance use type: does not use caffeine: Yes Type: carbonated beverages Number of servings: 2 EXAM Physical Exam Const Vital Signs: 12/15/23 22:11 12/15/23 22:15 12/15/23 23:15 Temperature 99.8 F H 99.8 F H Temperature Source Oral Oral Pulse Rate 123 H 123 H Respiratory Rate 18 18 Respiratory Effort Respiratory Pattern Blood Pressure 153/75 H 159/68 H Blood Pressure Mean 101 98 Pulse Ox 94 94 Oxygen Delivery Method Room Air Room Air Room Air 12/15/23 23:16 12/15/23 23:55 12/15/23 23:55 Temperature 98.9 F 98.9 F Temperature Source Oral Oral Pulse Rate 130 H 131 H Respiratory Rate 21 H 16 Respiratory Effort Normal Respiratory Pattern Normal Blood Pressure 143/107 H 143/107 H Blood Pressure Mean 119 119 Pulse Ox 95 94 Oxygen Delivery Method Room Air Room Air 12/16/23 00:35 12/16/23 01:11 Temperature 98.4 F 98.1 F Temperature Source Oral Pulse Rate 130 H 131 H Respiratory Rate 21 H 24 H Respiratory Effort Respiratory Pattern Blood Pressure 147/110 H 149/107 H Blood Pressure Mean 122 121 Pulse Ox 96 96 Oxygen Delivery Method Room Air MDM MDM MDM Narrative Medical decision making narrative: Due to the patient's elevated blood sugar I will going give her 10 units of insulin to help bring it down and she will take her long-acting insulin when she goes home. We discussed the treatment plan. She will follow-up with her primary care physician's office tomorrow. I did speak with them tonight about close follow-up. Spoke to the patient's family member who came to pick her up prior to discharge. I went over her test results. That we did not have a specific diagnosis for admission. She is comfortable with her being discharged home. I did explain to her that I spoke to the primary care physician on-call for her doctor and that she needed close follow-up and may need a follow-up MRI. Also to follow-up with her spine surgeon. Family also expressed the patient is not often very compliant with some of her medications. Lab Data Labs: Laboratory Results - last 24 hr 12/15/23 12/15/23 23:25 23:27 WBC 11.0 RBC 2.71 L Hgb 8.3 L Hct 26.8 L MCV 98.9 MCH 30.6 MCHC 31.0 L RDW Std Deviation 53.6 H RDW Coeff of [place] 15.5 H Plt Count 247 MPV 10.0 Immature Gran % (Auto) 0.400 Neut % (Auto) 91.7 H Lymph % (Auto) 3.3 L [place] % (Auto) 3.4 Eos % (Auto) 1.0 Baso % (Auto) 0.2 Absolute Neuts (auto) 10.1 H Absolute Lymphs (auto) 0.36 L Nucleated RBC % 0 ESR 36 H PT 14.6 INR 1.1 APTT 31.8 Sodium 137 Potassium 4.5 Chloride 101 Carbon Dioxide 28.0 Anion Gap 8 BUN 46 H Creatinine 5.00 H Estim Creat Clear Calc 13.17 Est GFR (MDRD) Af Amer 11 L Est GFR (MDRD) Non-Af 9 L BUN/Creatinine Ratio 9.2 L Glucose 429 H Lactic Acid 1.7 Calcium 8.2 L Total Bilirubin 0.50 AST 20 ALT 29 Alkaline Phosphatase 238 H Total Protein 7.3 Albumin 3.2 Globulin 4.1 Albumin/Globulin Ratio 0.8 L Urine Color Yellow Urine Clarity Clear Urine pH 7.0 Ur Specific [place] 1.010 Urine Protein 500 H Urine Glucose (UA) 1000 H Urine Ketones Negative Urine Occult Blood 25 H Urine Nitrite Negative Urine Bilirubin Negative Urine Urobilinogen Normal Ur Leukocyte Esterase Negative Urine RBC 0 SEEN Urine WBC 0 SEEN Ur Squamous Epith Cells 0 SEEN Urine Bacteria 0 SEEN Hyaline Casts 0-5 SEEN Urine Mucus 0 SEEN Radiography Diagnostic Testing: Clinical Impression(s) from Imaging Studies Chest X-Ray 12/15/23 23:42 IMPRESSION: No acute pulmonary finding. Electronically Signed: Rodney Cheung MD at 23:58 EST Reading Location ID and State: [address] [place] [address] Tel , Service support , Rhythm Strip Rhythm Strip: Sinus Tach Rate: 127 Ectopy: None Discharge Plan Triage Chief Complaint: General Illness ED Provider: Sachin Schmitz Dx/Rx/DC Orders Clinical Impression: Diabetic foot ulcer, Back pain, History of renal dialysis, History of end stage renal disease, History of spinal surgery, History of diabetes mellitus Instructions: ED Back and Neck Pain, General Prescriptions: No Action atorvastatin 80 mg tablet 80 mg PO QHS Qty: 90 3RF paroxetine HCl 20 mg tablet 20 mg PO DAILY Patient Comments: TAKE 1 TABLET BY MOUTH EVERY DAY IN THE EVENING bupropion HCl 150 mg tablet extended release 24 hr 150 mg PO DAILY Patient Comments: TAKE 1 TABLET BY MOUTH EVERY DAY sennosides-docusate sodium [Stool Softener-Stimulant Laxat] 8.6-50 mg Tablet 2 tab PO BID PRN PRN (Reason: Constipation) Qty: 0 0RF ascorbic acid (vitamin C) [Vitamin C] 500 mg Tablet 500 mg PO BID folic acid 400 mcg Tablet 400 mcg PO DAILY clopidogrel 75 mg tablet 75 mg PO DAILY pantoprazole 40 mg tablet,delayed release (DR/EC) 40 mg PO BIDCM ferrous sulfate 325 mg (65 mg iron) tablet 325 mg PO DAILY isosorbide dinitrate 10 mg Tablet 10 mg PO TID Qty: 0 0RF insulin lispro [Humalog KwikPen Insulin] 100 unit/mL Insulin Pen See Protocol subcut TIDAC Qty: 0 0RF Protocol: 1. Sliding Scale Insulin Low Dosing Condition: 150-224 mg/dl = 1 unit Condition: 225-299 mg/dl = 2 units Condition: 300-374 mg/dl = 3 units Condition: 375-499 mg/dl = 4 units Condition: Greater than 449 call physician Protocol Text: - Use for Total Daily Dose of Insulin 15-27 units - Thin, elderly, renal patients LOW DOSING ALGORITHM insulin glargine-yfgn 100 unit/mL (3 mL) insulin pen 5 unit subcut QHS Qty: 15 0RF Rx Instructions: Hold if glucose less than 130 mg/dl clindamycin HCl 300 mg capsule 300 mg PO 4X/DAY 10 Days Qty: 40 0RF gabapentin 100 mg capsule 100 mg PO DAILY cyclobenzaprine 5 mg tablet 5 mg PO TID PRN (Reason: muscle spasm) Qty: 21 0RF Primary Care Provider: Raúl Eric Referrals: Raúl Eric MD [Primary Care Provider] - As soon as possible Activity Restrictions/Additional Instructions: I spoke to the physician on-call for your primary care physician Dr. Hong tompkins. Call their office tomorrow to get in to be seen as soon as possible. They may strongly consider a MRI of your thoracic and lumbar spine for further evaluation of your back, your protruding disc and to rule out any signs of infection. Your recent CAT scans did not show any infection but that could be missed on the CAT scan. Your labs tonight were unremarkable. Continue your current antibiotic. Call and follow-up with your spine surgeon in [place] as soon as possible. See if they can move up the appointment. Return if feeling worse. Disposition Disposition: Home, Self Care Discharge Date/Time: 12/16/23 01:12
[2023-12-16] MEDS: Insulin Lispro 100 UNIT/ML INSULN.PEN 10 UNIT SC (00:53)
[2023-12-16 01:11] VITALS: BP 149/107; PULSE 131; RESP 24; TEMP 36.7; O2SAT 96
== END 2023-12-16 01:12 | disposition home or self-care (01) ==
PROVIDERS: Emergency Provider Emergency Medicine; PCP Family Medicine; Visit Provider Emergency Medicine
DX: M54.50 Low back pain, unspecified (principal); E11.621 Type 2 diabetes mellitus with foot ulcer; L97.419 Non-pressure chronic ulcer of right heel and midfoot with unspecified severity; Z99.2 Dependence on renal dialysis; E11.65 Type 2 diabetes mellitus with hyperglycemia; E11.22 Type 2 diabetes mellitus with diabetic chronic kidney disease; I12.0 Hypertensive chronic kidney disease with stage 5 chronic kidney disease or end stage renal disease; N18.6 End stage renal disease; Z79.4 Long term (current) use of insulin; R50.9 Fever, unspecified; Z11.52 Encounter for screening for COVID-19; I25.2 Old myocardial infarction; Z79.899 Other long term (current) drug therapy; Z86.73 Personal history of transient ischemic attack (TIA), and cerebral infarction without residual deficits; Z95.5 Presence of coronary angioplasty implant and graft
CPT/HCPCS: 99284; 71045; 80053; 81001; 83605; 85025; 85610; 85652; 85730; 87040; 87086; 87149; 87631; 93005; A4216

== ENCOUNTER 2023-12-16 13:23 | Inpatient (IN) | payer MEDICARE, MEDICAID, SELFPAY ==
[2018-09-21 13:23] VITALS: BMI 29.3
[2023-12-16] VITALS (9 sets, daily range): BP systolic 119–171; BP diastolic 57–89; PULSE 95–122; RESP 19–28; TEMP 36.9–39.3; O2SAT 93–99; BMI 29.2; BMI 28.4
--- NOTE | 2023-12-16 13:47 | EX.ED.DYSGE1 ---
HPI History of Present Illness Chief Complaint: Unresponsive Informant: patient and EMS Narrative Narrative: Brought by EMS from dialysis center becoming unresponsive half-way through dialysis. EMS blood glucose 170s. She has a right chest Vas-Cath. She is febrile 101. She states she still makes urine 1-2 times a day. She has been having burning with urine. Denies cough. He states she feels cold. She has had sepsis in the past. Prior similar symptoms: Yes PFSH [facility] Medical History Acquired varus deformity of left foot Acquired varus deformity of right foot Acute lumbar radiculopathy Acute on chronic anemia Adult failure to thrive Amputation foot, bilat Anemia due to chronic illness Anemia in chronic illness Anxiety and depression Atherosclerosis of kake coronary artery of kake heart without angina pectoris Back pain, chronic Bilateral edema of lower extremity Cellulitis Cellulitis of both lower extremities Charcot's joint of right foot Charcot's joint, left ankle and foot Charcot's joint, right ankle and foot Chronic foot pain Chronic kidney disease, stage 3b Chronic kidney disease, stage 4 (severe) Chronic renal disease, stage 4, severely decreased glomerular filtration rate (GFR) between 15-29 mL/min/1.73 square meter Chronic renal insufficiency Chronic ulcer of left foot with fat layer exposed 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 Chronic ulcer of right foot with fat layer exposed Chronic ulcer of right foot with necrosis of bone Chronic ulcer of right foot with necrosis of muscle Chronic ulcer of right leg with fat layer exposed COVID-19 (08/28/21) CRF (chronic renal failure) Debility Delayed wound healing Diabetes Diabetes mellitus with diabetic polyneuropathy Diabetic foot ulcer associated with type 2 diabetes mellitus Diabetic foot ulcers Diabetic infection of left foot Diabetic polyneuropathy Diabetic ulcer of right ankle Elevated troponin End stage renal disease Essential (primary) hypertension Essential hypertension Foot osteomyelitis, left GERD (gastroesophageal reflux disease) Hemoglobin A1c greater than 9.0% HLD (hyperlipidemia) Hyperparathyroidism, secondary renal Hypertension Iron deficiency anemia Ischemic cardiomyopathy Myocardial infarct Non-compliance Non-pressure chronic ulcer of other part of left foot with fat layer exposed Non-pressure chronic 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 layer exposed Non-smoker Normocytic anemia NSTEMI (non-ST elevated myocardial infarction) (09/20/18) Obesity (BMI 30.0-34.9) Osteomyelitis Osteomyelitis of left foot Osteomyelitis of metatarsal RLS (restless legs syndrome) Stage 4 chronic kidney disease TIA (transient ischemic attack) Type 2 diabetes mellitus 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 Ulcer of left foot with fat layer exposed Ulcer of left foot with muscle involvement without evidence of necrosis Ulcer of left foot with necrosis of muscle Ulcer of right lower extremity with fat layer exposed Home Medications paroxetine HCl 20 mg tablet 20 mg PO DAILY DEPRESSION 07/07/21 [History Last Taken 04/07/22] bupropion HCl 150 mg 24 hr tablet, extended release 150 mg PO DAILY mood 02/04/22 [History Last Taken 04/07/22] sennosides 8.6 mg-docusate sodium 50 mg tablet (Stool Softener-Stimulant Laxative) 2 tab PO BID PRN PRN Constipation #0 tabs 04/24/22 [Rx Last Taken Unknown] ascorbic acid (vitamin C) 500 mg tablet (Vitamin C) 500 mg PO BID supplement 05/05/22 [History Last Taken Unknown] clopidogrel 75 mg tablet 75 mg PO DAILY prevent stroke 07/19/22 [History Last Taken Unknown] ferrous sulfate 325 mg (65 mg iron) tablet 325 mg PO .three times a week anemia 07/19/22 [History Last Taken Unknown] pantoprazole 40 mg tablet,delayed release 40 mg PO BIDCM GERD 07/19/22 [History Last Taken Unknown] insulin glargine-yfgn 100 unit/mL (3 mL) subcutaneous pen 5 unit (0.05 mL) subcut QHS blood sugar #15 mL 07/21/22 [Rx Last Taken Unknown] insulin lispro 100 unit/mL subcutaneous pen (Humalog KwikPen (U-100) Insulin) See Protocol subcut TIDAC #0 mL 07/21/22 [Rx Last Taken Unknown] cyclobenzaprine 5 mg tablet 5 mg PO TID PRN muscle spasm #21 tabs 11/26/23 [Rx Last Taken Unknown] gabapentin 100 mg capsule 100 mg PO .COMPLEX PRN pain 11/26/23 [History Last Taken Unknown] Mircera See Rx Instructions .Route .COMPLEX dialysis 12/16/23 [History Last Taken Unknown] Venofer iron 12/16/23 [History Last Taken Unknown] acetaminophen 325 mg capsule 325 mg PO Q4H PRN fever or pain 12/16/23 [History Last Taken Unknown] amlodipine 5 mg tablet 5 mg PO DAILY bp 12/16/23 [History Last Taken Unknown] antacid extra assorted fruit tablets 750 mg PO .every 4 hours PRN tums 12/16/23 [History Last Taken Unknown] atorvastatin 20 mg tablet 20 mg PO DAILY cholestrol 12/16/23 [History Last Taken Unknown] calcitriol 0.5 mcg capsule 0.5 mcg PO .COMPLEX on dialysis 12/16/23 [History Last Taken Unknown] calcium acetate(phosphat bind) 667 mg capsule 676 mg PO TID is on dialysis 12/16/23 [History Last Taken Unknown] carvedilol 12.5 mg tablet 12.5 mg PO BID heart and bp 12/16/23 [History Last Taken Unknown] cloNIDine See Rx Instructions .Route .COMPLEX dialysis 12/16/23 [History Last Taken Unknown] diphenhydramine 25 mg IV itching 12/16/23 [History Last Taken Unknown] folic acid 800 mcg tablet 0.8 mg PO DAILY supplement 12/16/23 [History Last Taken Unknown] hydralazine 25 mg tablet 25 mg PO TID bp 12/16/23 [History Last Taken Unknown] insulin aspart U-100 6 unit subcut TID blood glucose 12/16/23 [History Last Taken Unknown] insulin aspart U-100 100 unit/mL (3 mL) subcutaneous pen subcut 12/16/23 [History Last Taken Unknown] insulin glargine 100 unit/mL (3 mL) subcutaneous pen (Lantus Solostar U-100 Insulin) 20 unit subcut DAILY blood glucose 12/16/23 [History Last Taken Unknown] isosorbide dinitrate 10 mg tablet 20 mg PO TID bp and heart 12/16/23 [History Last Taken Unknown] levothyroxine 25 mcg tablet 25 mcg PO DAILY thyroid 12/16/23 [History Last Taken Unknown] lidocaine-silicone, adhesive topical pain 12/16/23 [History Last Taken Unknown] loperamide 2 mg capsule (Anti-Diarrheal (loperamide)) 2 mg PO Q4H PRN loose stool 12/16/23 [History Last Taken Unknown] melatonin 5 mg capsule 5 mg PO .bedtime sleep 12/16/23 [History Last Taken Unknown] nitroglycerin 0.4 mg sublingual tablet (Nitrostat) 0.4 mg sublingual Q5M chest pain 12/16/23 [History Last Taken Unknown] olanzapine 5 mg tablet 5 mg PO QHS sleep 12/16/23 [History Last Taken Unknown] ondansetron 4 mg disintegrating tablet 4 mg PO DAILY PRN nausea and vomiting 12/16/23 [History Last Taken Unknown] oxycodone-acetaminophen 5 mg-325 mg tablet 1 tab PO Q6H PRN pain 12/16/23 [History Last Taken Unknown] pramipexole dihydrochloride 1.5 mg PO BID unknown 12/16/23 [History Last Taken Unknown] promethazine 25 mg tablet 25 mg PO Q4H PRN nausea and vomiting 12/16/23 [History Last Taken Unknown] Allergy/AdvReac Type Severity Reaction Status Date / Time Penicillins Allergy swelling Verified 12/16/23 13:24 in throat vancomycin Allergy Itching Verified 12/16/23 13:24 metronidazole AdvReac Nausea Verified 12/16/23 13:24 oxycodone [From OxyContin] AdvReac Shortness Verified 12/16/23 13:24 of breath Family History Mother Diabetes CVA (cerebral vascular accident) Brother CAD (coronary artery disease) CABG X 3 Cancer testicular Diabetes Brother CAD (coronary artery disease) CABG X3 Diabetes Brother CAD (coronary artery disease) Stents Diabetes Sister CAD (coronary artery disease) CABG x 3 CVA (cerebral vascular accident) Diabetes Surgical History History of bilateral carpal tunnel release History of History of coronary artery stent placement (12/31/20) History of foot surgery History of rotator cuff surgery Social History household members: none number of children: 2 current occupational status: disabled Smoking Status: Never smoker alcohol intake: never substance use type: does not use caffeine: Yes Type: carbonated beverages Number of servings: 2 ROS ROS ED Constitutional Constitutional ED: Reports chills and fever(s); Denies sweats Eyes Eyes: Denies change in vision ENT ENT ED: Denies dysphagia or sore throat Cardiovascular Cardiovascular: Denies chest pain, leg edema, palpitations or racing heartbeat Respiratory/Chest Respiratory/Chest: Denies cough, dyspnea or dyspnea on exertion Gastrointestinal Gastrointestinal: Denies abdominal pain, diarrhea, nausea or vomiting Genitourinary Genitourinary ED: Reports dysuria; Denies hematuria or urinary frequency Musculoskeletal Musculoskeletal: Denies back pain, extremity pain or neck pain Integumentary Denies rash or wounds Neurologic Neurologic: Denies headache(s), paresthesias or weakness EXAM Physical Exam Const Vital Signs: 12/16/23 13:25 12/16/23 13:51 12/16/23 14:58 Temperature 99.5 F H 99.1 F Temperature Source Temporal Temporal Pulse Rate 122 H 117 H Respiratory Rate 20 H 22 H Blood Pressure 143/57 H Blood Pressure Mean 85 Pulse Ox 93 95 Oxygen Delivery Method Room Air Room Air Room Air 12/16/23 15:00 12/16/23 16:04 12/16/23 17:24 Temperature 100.6 F H 98.5 F Temperature Source Temporal Temporal Pulse Rate 120 H 119 H 121 H Respiratory Rate 20 H 19 H 19 H Blood Pressure 171/89 H 161/81 H 153/79 H Blood Pressure Mean 116 107 103 Pulse Ox 99 96 95 Oxygen Delivery Method Room Air Positive well nourished and well developed Constitutional Narrative: Alert to person, reporting years 2022. Initially did not know where she was at. General Appearance ED: well developed and NAD HEENT Reports moist mucous membranes normocephalic and atraumatic Eyes PERRL, EOMs intact bilaterally and conjunctivae normal General Eye ED: Yes normal appearance of both eyes Neck no lymphadenopathy and supple General: Negative for tenderness Chest Wall Chest Narrative: Right chest wall Vas-Cath dressing clean, dry, intact. Chest: Negative for tenderness Resp normal respiratory effort and normal air movement Effort and Inspection: symmetric chest movement; Negative for respiratory distress Cardio regular rhythm and no murmurs Rate: tachycardic Peripheral Pulses: pulses 2+ throughout GI normal to inspection, nondistended, normoactive bowel sounds and non-tender Palpation: Negative for guarding or rebound tenderness present Back/Spine no CVA tenderness and no thoracic nor lumbar tenderness Extremity normal to inspection Extremity Narrative: Right lower short leg walking boot noted. Moving all 4 extremities. General Extremety ED: Negative for edema or tenderness General Extremity: Negative for edema Neuro no sensory deficits noted Sensorium / Orientation: awake and alert Skin no rashes or lesions noted and no wounds MDM MDM MDM Narrative Medical decision making narrative: Interventions / MDM: Differential diagnosis: Urinary tract infection, electrolyte abnormalities, encephalopathy Diagnosis considered but do not suspect: CVA, no focal deficits moving all 4 extremities.sepsis however lactic acid normal. My EKG interpretation: Sinus rhythm 125, no ST or T wave changes. Imaging independently reviewed and interpreted by myself: 1 view chest x-ray: No acute process External documents reviewed: N/A Test considered but not ordered:N/A ED course: Patient febrile at facility temp 99.5 here. Tachycardic. Sepsis labs were ordered, Tirado catheter with urine. Fluids were given for tachycardia. Blood pressure stable. Patient moving all 4 extremities. 1608: Patient are noted 3 currently however still slightly confused. Blood pressure stable urine notes signs of infection she is symptomatic from this white count 7.8. Hemoglobin stable 8.9. Elevated creatinine with her history of end-stage renal disease and potassium 3.9. Temp went up to 100.6 in the ED. She does have a Vas-Cath in her chest which is an additional source of possible infection. I will speak with hospitalist for admission and plan antibiotic treatment. 1620: Patient is alert oriented x 3 on reevaluation however still slightly confused. Nursing reported me temp went up to 103 heart rate 130s. She is sinus rhythm on the monitor. Will broadly cover her at this time with antibiotics. Reviewing records she has been giving ertapenem. Vancomycin causes itching therefore plan will be to give vancomycin at half the rate. This was discussed with nursing. 1700: I spoke with hospitalist Dr. Okeefe for admission to PCU. Re-evaluation: stable Disposition discussed with patient/family/significant other: Patient Case discussed with consulting clinician: Hospitalist This note was generated with [employer] dictation software. It may contain incorrect words, spelling, and punctuation that were not noted in checking the note before signing. Lab Data Labs: Laboratory Results - last 24 hr 12/16/23 12/16/23 14:24 14:33 WBC 7.8 RBC 2.94 L Hgb 8.9 L Hct 29.1 L MCV 99.0 MCH 30.3 MCHC 30.6 L RDW Std Deviation 55.0 H RDW Coeff of Fior 15.9 H Plt Count 204 MPV 10.7 Immature Gran % (Auto) 0.400 Neut % (Auto) 87.3 H Lymph % (Auto) 5.6 L [place] % (Auto) 5.9 Eos % (Auto) 0.4 Baso % (Auto) 0.4 Absolute Neuts (auto) 6.9 Absolute Lymphs (auto) 0.44 L Nucleated RBC % 0 Differential Comment SEE COMMENT Platelet Estimate ADEQUATE Hypochromasia RARE Anisocytosis 1+ Macrocytosis 1+ PT 15.5 H INR 1.2 APTT 37.2 H Sodium 138 Potassium 3.9 Chloride 100 Carbon Dioxide 33.0 H Anion Gap 5 BUN 37 H Creatinine 4.11 H Estim Creat Clear Calc 16.13 Est GFR (MDRD) Af Amer 14 L Est GFR (MDRD) Non-Af 12 L BUN/Creatinine Ratio 9.0 L Glucose 151 H Lactic Acid 1.6 Calcium 9.0 Total Bilirubin 0.60 AST 24 ALT 27 Alkaline Phosphatase 232 H Total Protein 7.7 Albumin 3.2 Globulin 4.5 H Albumin/Globulin Ratio 0.7 L Urine Color Yellow Urine Clarity Sl. Cloudy Urine pH 8.0 Ur Specific [place] 1.010 Urine Protein 500 H Urine Glucose (UA) 50 H Urine Ketones Negative Urine Occult Blood 25 H Urine Nitrite Negative Urine Bilirubin Negative Urine Urobilinogen Normal Ur Leukocyte Esterase 500 H Urine RBC 0-5 SEEN Urine WBC 25-50 SEEN Ur Squamous Epith Cells 0-5 SEEN Urine Bacteria 1+ Urine Mucus 0 SEEN Radiography Diagnostic Testing: Clinical Impression(s) from Imaging Studies Chest X-Ray 12/16/23 13:51 IMPRESSION: No radiographic evidence of acute cardiopulmonary disease. Electronically Signed: Cirilo Kuo MD at 14:24 EST , Discharge Plan Dx/Rx/DC Orders Clinical Impression: ESRD on hemodialysis, UTI (urinary tract infection), Fever, Encephalopathy, Chronic anemia Disposition Disposition: Acute Care Hospital [facility] Discharge Date/Time: 12/16/23 20:10
--- NOTE | 2023-12-16 13:51 | RAD_ITS ---
INDICATION: fever EXAMINATION/TECHNIQUE: X-RAY - XR Chest 1 View COMPARISON: Prior study dated: 12/15/2023. FINDINGS: LINES/DEVICES: Right-sided permacath in stable position. LUNGS: Improved aeration of the right lung base. No new infiltrate is seen. No evidence of pleural effusions. MEDIASTINUM AND CARDIOVASCULAR STRUCTURES: Stable cardiomediastinal silhouette. BONES AND SOFT TISSUES: Unchanged. RAD/Chest 1 View (Portable) IMPRESSION: No radiographic evidence of acute cardiopulmonary disease. Electronically Signed: Cirilo Kuo MD at 14:24 EST ,
--- NOTE | 2023-12-16 13:51 | EKG12_ITS ---
Test Reason : ALT LOC Blood Pressure : / mmHG Vent. Rate : 125 BPM Atrial Rate : 125 BPM P-R Int : 150 ms QRS Dur : 094 ms QT Int : 320 ms P-R-T Axes : 070 032 057 degrees QTc Int : 461 ms Sinus tachycardia Otherwise normal ECG BASELINE ARTIFACT Confirmed by Kayden Elaine ([id number]), photo editor DAVID CARCAMO ([id number]) on 12/20/2023 7:07:10 AM Referred By: Confirmed By:Kayden Elaine
[2023-12-16] MEDS: 0.9% Normal Saline (500mL Bag) 500 ML 999 ML IV (14:36)
[2023-12-16 14:45] LABS: Mucous, Urine 0 SEEN /hpf (<or=2+)
[2023-12-16 14:46] LABS: International Normalized Ratio 1.2; Prothrombin Time (Protime)PT. 15.5 SECONDS (11.7-14.9)
[2023-12-16 14:48] LABS: Color, Urine Yellow (Yellow); Glucose, Dipstick 50 mg/dl (Normal); Ketone-Dipstick Negative (Negative); Leukocyte Esterase-Dipstick 500 /ul (Negative); Nitrite-Dipstick Negative (Negative); Occult Blood-Urine 25 /ul (Negative); Protein-Dipstick 500 mg/dl (Negative); Urine Bilirubin Dipstick Negative (Negative); Urine Clarity Sl. Cloudy (Clear); Urine Urobilinogen Normal (Normal)
[2023-12-16 14:48] LABS: Partial Thromboplast Time 37.2 Seconds (24.1-36.2)
[2023-12-16 14:59] LABS: ALB/GLOB Ratio 0.7 RATIO (0.9-2.4); AST(SGOT) 24 U/L (15-37); Alanine Aminotransfer ALT/SGPT 27 U/L (13-56); Albumin, Serum 3.2 g/dL (3.2-5.0); Alkaline Phosphatase 232 U/L (45-117); Anion Gap 5 (5-15); BUN 37 mg/dL (7-18); Chloride 100 mmol/L (98-107); Creatinine, Serum 4.11 mg/dL (0.55-1.02); EST Glomerular Filtration Rate 12 mL/min (>60); Est Glom Filt Rate - Afr Amer 14 mL/min (>60); Estimated Creatinine Clearance 16.13 ml/min; Globulin 4.5 g/dL (2.2-4.2); Glucose 151 mg/dL (74-106); Potassium 3.9 mmol/L (3.5-5.1); Protein, Total 7.7 g/dL (6.4-8.2); Sodium Level 138 mmol/L (136-145)
[2023-12-16 15:00] LABS: Bacteria 1+ /hpf (None Seen); Red Blood Cells-Urine 0-5 SEEN /hpf (0-5); Squamous Epithelial Cells - UA 0-5 SEEN /hpf (5-10); White Blood Cells 25-50 SEEN /hpf (0-5)
[2023-12-16 15:03] LABS: Lactic Acid 1.6 mmol/L (0.4-1.9)
[2023-12-16 15:47] LABS: Absolute Lymphocyte Count 0.44 X10^3/uL (0.83-4.51); Absolute Neutrophil Count 6.9 X10^3/uL (2.0-7.7); Basophil# 0.03 X10^3/uL; Basophil% 0.4 % (0-1); Eosinophil# 0.03 X10^3/uL; Eosinophils% 0.4 % (0-5); Hematocrit 29.1 % (37-47); Hemoglobin 8.9 g/dL (12.0-15.0); Lymphocyte # 0.44 X10^3/ul (0.83-4.51); Lymphocyte % 5.6 % (19-41); Mean Corp Hgb Conc 30.6 g/dL (32-36); Mean Corpuscular Hgb 30.3 pg (27.0-32.0); Mean Platelet Vol. 10.7 fl (6.2-12.0); Monocyte# 0.46 X10^3/uL; Monocyte% 5.9 % (0-10); NRBC Flagged by Analyzer 0 % (0-5); Neutrophil # 6.85 X10^3/uL (2.7-7.7); Neutrophil % 87.3 % (47-70); POSITIVE DIFFERENTIAL YES; Platelet Count 204 K/mm3 (150-450); RBC Distribution Width CV 15.9 % (11.6-14.6); Red Blood Count 2.94 M/mm3 (4.2-5.4); White Blood Count 7.8 K/mm3 (4.4-11.0)
[2023-12-16 15:52] LABS: Differential Indicated SCAN CRITERIA MET
--- NOTE | 2023-12-16 16:21 | ED.RN ---
Pt shivering, repeat temp 103.1 oral. Pt 87% on Room air; pt placed on 2L NC. ED provider aware
[2023-12-16 16:23] LABS: Platelet Estimate ADEQUATE (ADEQ)
[2023-12-16 16:24] LABS: Anisocytosis 1+; Hypochromasia RARE; Macrocytosis 1+
[2023-12-16] MEDS: Acetaminophen 500 MG Tablet 1000 MG PO (16:54)
[2023-12-16] MEDS: Meropenem 1 GM in 0.9% Normal Saline (100mL MB+) 100 ML IV (16:55)
--- NOTE | 2023-12-16 16:55 | HP.PCM_ITS ---
HPI - General General Date of Admission: 12/16/23 Date of Service: 12/16/23 Chief Complaint: unresponsiveness HPI Narrative DIONY ROCHA, is a 58 F with a PMH as outlined who presents via the ED on 12/16/2023 with an episode of unresponsiveness in the dialysis suite. She was noted to be unresponsive [facility] through dialysis. She had a right chest catheter for dialysis. She admitted to a fever and burning with urination. She denied any cough, chest pain, palpitations, dizziness, nausea, vomiting or any other symptoms. Patient was lethargic but was able to answer his questions. REveiw of systems was otherwise negative. Vitals in the ED at time of review were Bp of 171/79, SC of 120, RR of 20 and temp of 100.6F. She was saturating at 99% on room air. CBC showed hb of 8.9 and wbc of 7.8 with platelets of 204. INR was 1.2. Chemistry showed sodium of 138, potassium of 3.9 and Cr of 4.11. Urinalysis showed urine bacteria 1+. She was started on IV vancomycin and cefepime and is being admitted for UTI and possible dialysis catheter infection. [facility] Medical History Acquired varus deformity of left foot Acquired varus deformity of right foot Acute lumbar radiculopathy Acute on chronic anemia Adult failure to thrive Amputation foot, bilat Anemia due to chronic illness Anemia in chronic illness Anxiety and depression Atherosclerosis of [place] coronary artery of [place] heart without angina pectoris Back pain, chronic Bilateral edema of lower extremity Cellulitis Cellulitis of both lower extremities Charcot's joint of right foot Charcot's joint, left ankle and foot Charcot's joint, right ankle and foot Chronic foot pain Chronic kidney disease, stage 3b Chronic kidney disease, stage 4 (severe) Chronic renal disease, stage 4, severely decreased glomerular filtration rate (GFR) between 15-29 mL/min/1.73 square meter Chronic renal insufficiency Chronic ulcer of left foot with fat layer exposed 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 Chronic ulcer of right foot with fat layer exposed Chronic ulcer of right foot with necrosis of bone Chronic ulcer of right foot with necrosis of muscle Chronic ulcer of right leg with fat layer exposed COVID-19 (08/28/21) CRF (chronic renal failure) Debility Delayed wound healing Diabetes Diabetes mellitus with diabetic polyneuropathy Diabetic foot ulcer associated with type 2 diabetes mellitus Diabetic foot ulcers Diabetic infection of left foot Diabetic polyneuropathy Diabetic ulcer of right ankle Elevated troponin End stage renal disease Essential (primary) hypertension Essential hypertension Foot osteomyelitis, left GERD (gastroesophageal reflux disease) Hemoglobin A1c greater than 9.0% HLD (hyperlipidemia) Hyperparathyroidism, secondary renal Hypertension Iron deficiency anemia Ischemic cardiomyopathy Myocardial infarct Non-compliance Non-pressure chronic ulcer of other part of left foot with fat layer exposed Non-pressure chronic 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 layer exposed Non-smoker Normocytic anemia NSTEMI (non-ST elevated myocardial infarction) (09/20/18) Obesity (BMI 30.0-34.9) Osteomyelitis Osteomyelitis of left foot Osteomyelitis of metatarsal RLS (restless legs syndrome) Stage 4 chronic kidney disease TIA (transient ischemic attack) Type 2 diabetes mellitus 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 Ulcer of left foot with fat layer exposed Ulcer of left foot with muscle involvement without evidence of necrosis Ulcer of left foot with necrosis of muscle Ulcer of right lower extremity with fat layer exposed Home Medications paroxetine HCl 20 mg tablet 20 mg PO DAILY DEPRESSION 07/07/21 [History Last Taken 04/07/22] bupropion HCl 150 mg 24 hr tablet, extended release 150 mg PO DAILY mood 02/04/22 [History Last Taken 04/07/22] sennosides 8.6 mg-docusate sodium 50 mg tablet (Stool Softener-Stimulant Laxative) 2 tab PO BID PRN PRN Constipation #0 tabs 04/24/22 [Rx Last Taken Unknown] ascorbic acid (vitamin C) 500 mg tablet (Vitamin C) 500 mg PO BID supplement 05/05/22 [History Last Taken Unknown] clopidogrel 75 mg tablet 75 mg PO DAILY prevent stroke 07/19/22 [History Last Taken Unknown] ferrous sulfate 325 mg (65 mg iron) tablet 325 mg PO DAILY anemia 07/19/22 [History Last Taken Unknown] pantoprazole 40 mg tablet,delayed release 40 mg PO BIDCM GERD 07/19/22 [History Last Taken Unknown] insulin glargine-yfgn 100 unit/mL (3 mL) subcutaneous pen 5 unit (0.05 mL) subcut QHS blood sugar #15 mL 07/21/22 [Rx Last Taken Unknown] insulin lispro 100 unit/mL subcutaneous pen (Humalog KwikPen (U-100) Insulin) See Protocol subcut TIDAC #0 mL 07/21/22 [Rx Last Taken Unknown] isosorbide dinitrate 10 mg tablet 10 mg PO TID #0 tabs 07/21/22 [Rx Last Taken Unknown] cyclobenzaprine 5 mg tablet 5 mg PO TID PRN muscle spasm #21 tabs 11/26/23 [Rx Last Taken Unknown] gabapentin 100 mg capsule 100 mg PO DAILY 11/26/23 [History Last Taken Unknown] atorvastatin 20 mg tablet 20 mg PO DAILY 12/16/23 [History Last Taken Unknown] calcium acetate(phosphat bind) 667 mg capsule 676 mg PO TID 12/16/23 [History Last Taken Unknown] folic acid 800 mcg tablet 0.8 mg PO DAILY 12/16/23 [History Last Taken Unknown] insulin aspart U-100 100 unit/mL (3 mL) subcutaneous pen subcut 12/16/23 [History Last Taken Unknown] levothyroxine 25 mcg tablet 25 mcg PO DAILY 12/16/23 [History Last Taken Unknown] olanzapine 5 mg tablet 5 mg PO QHS 12/16/23 [History Last Taken Unknown] oxycodone-acetaminophen 5 mg-325 mg tablet 1 tab PO Q6H PRN pain 12/16/23 [History Last Taken Unknown] Allergy/AdvReac Type Severity Reaction Status Date / Time Penicillins Allergy swelling Verified 12/16/23 13:24 in throat vancomycin Allergy Itching Verified 12/16/23 13:24 metronidazole AdvReac Nausea Verified 12/16/23 13:24 oxycodone [From OxyContin] AdvReac Shortness Verified 12/16/23 13:24 of breath Family History Mother Diabetes CVA (cerebral vascular accident) Brother CAD (coronary artery disease) CABG X 3 Cancer testicular Diabetes Brother CAD (coronary artery disease) CABG X3 Diabetes Brother CAD (coronary artery disease) Stents Diabetes Sister CAD (coronary artery disease) CABG x 3 CVA (cerebral vascular accident) Diabetes Surgical History History of bilateral carpal tunnel release History of History of coronary artery stent placement (12/31/20) History of foot surgery History of rotator cuff surgery Social History household members: none number of children: 2 current occupational status: disabled Smoking Status: Never smoker alcohol intake: never substance use type: does not use caffeine: Yes Type: carbonated beverages Number of servings: 2 ROS ROS Narrative patient was lethargic but able to answer a few questions Constitutional Constitutional: Reports chills, fever(s), malaise and weakness; Denies anorexia or fatigue Eyes Eyes: Denies change in vision ENT HEENT: Denies dysphagia or headache(s) Cardiovascular Cardiovascular: Reports palpitations; Denies chest pain, edema, orthopnea or paroxysmal nocturnal dyspnea Respiratory/Chest Respiratory/Chest: Denies cough, shortness of breath at rest or shortness of breath with exertion Gastrointestinal Gastrointestinal: Denies abdominal pain, diarrhea, dyspepsia, melena, nausea or vomiting Genitourinary Genitourinary: Denies dysuria Musculoskeletal Musculoskeletal: Denies back pain Endocrine Endocrinology: Denies change in body appearance Vital Signs Vital Signs Vital Signs: 12/16/23 13:25 12/16/23 13:51 12/16/23 14:58 Temperature 99.5 F H 99.1 F Temperature Source Temporal Temporal Pulse Rate 122 H 117 H Respiratory Rate 20 H 22 H Blood Pressure 143/57 H Blood Pressure Mean 85 Pulse Ox 93 95 Oxygen Delivery Method Room Air Room Air Room Air 12/16/23 15:00 Temperature 100.6 F H Temperature Source Temporal Pulse Rate 120 H Respiratory Rate 20 H Blood Pressure 171/89 H Blood Pressure Mean 116 Pulse Ox 99 Oxygen Delivery Method Room Air Weight Weight: 181 lb 6.4 oz Body Mass Index (BMI) 29.2 Physical Exam Const alert, oriented x3 and no apparent distress Orientation / Consciousness: lethargic HEENT normocephalic, head/scalp atraumatic and moist oral mucous membranes Eyes PERRL and EOMs intact bilaterally Neck no lymphadenopathy and supple Lymph Lymphatic: no lymphadenopathy noted and no lymphedema noted Cardio regular rate, regular rhythm, S1 normal heart sound, S2 normal heart sound and no murmurs GI normal to inspection, nondistended, normoactive bowel sounds, soft to palpation and non-tender Extremity normal capillary refill, no clubbing, cyanosis or edema and no calf tenderness Extremity Narrative: dialysis catheter in chest; surrounding skin not erythematous. Skin General Skin Exam: no breakdown Neuro Neuro Narrative: lethargic, encephalopathic Motor Exam: general weakness Results Lab / Micro Data 12/16/23 14:24 12/16/23 14:24 Labs: Laboratory Results - last 24 hr 12/16/23 14:24: WBC 7.8, RBC 2.94 L, Hgb 8.9 L, Hct 29.1 L, MCV 99.0, MCH 30.3, MCHC 30.6 L, RDW Std Deviation 55.0 H, RDW Coeff of Fior 15.9 H, Plt Count 204, MPV 10.7, Immature Gran % (Auto) 0.400, Neut % (Auto) 87.3 H, Lymph % (Auto) 5.6 L, [place] % (Auto) 5.9, Eos % (Auto) 0.4, Baso % (Auto) 0.4, Absolute Neuts (auto) 6.9, Absolute Lymphs (auto) 0.44 L, Nucleated RBC % 0, Differential Comment SEE COMMENT, Platelet Estimate ADEQUATE, Hypochromasia RARE, Anisocytosis 1+, Macrocytosis 1+, PT 15.5 H, INR 1.2, APTT 37.2 H, Sodium 138, Potassium 3.9, Chloride 100, Carbon Dioxide 33.0 H, Anion Gap 5, BUN 37 H, Creatinine 4.11 H, Estim Creat Clear Calc 16.13, Est GFR (MDRD) Af Amer 14 L, Est GFR (MDRD) Non-Af 12 L, BUN/Creatinine Ratio 9.0 L, Glucose 151 H, Lactic Acid 1.6, Calcium 9.0, Total Bilirubin 0.60, AST 24, ALT 27, Alkaline Phosphatase 232 H, Total Protein 7.7, Albumin 3.2, Globulin 4.5 H, Albumin/Globulin Ratio 0.7 L 12/16/23 14:33: Urine Color Yellow, Urine Clarity Sl. Cloudy, Urine pH 8.0, Ur Specific [place] 1.010, Urine Protein 500 H, Urine Glucose (UA) 50 H, Urine Ketones Negative, Urine Occult Blood 25 H, Urine Nitrite Negative, Urine Bilirubin Negative, Urine Urobilinogen Normal, Ur Leukocyte Esterase 500 H, Urine RBC 0-5 SEEN, Urine WBC 25-50 SEEN, Ur Squamous Epith Cells 0-5 SEEN, Urine Bacteria 1+, Urine Mucus 0 SEEN Micro: Microbiology 12/16/23 14:24 Mucosa - Nasopharyngeal SARS-CoV-2, Influenza & RSV (PCR) - Final Imaging Radiology Impression Chest X-Ray 12/16/23 13:51 IMPRESSION: No radiographic evidence of acute cardiopulmonary disease. Electronically Signed: Cirilo Kuo MD at 14:24 EST , Assessment & Plan Assessment/Plan (1) Encephalopathy: (2) Fever: (3) UTI (urinary tract infection): PLAN: Plan #Acute encephalopathy, likely due to UTI and gram positive bacteremia * admitted from her dialysis suite after being found unresponsive [facility] through dialysis * has a fever with temperature reaching 100.6F * will order blood cultures and urine cultures * start on IV vancomycin and zosyn * PO tylenol prn * blood cultures done yesterday are showing preliminary results for gram positive cocci. * will get 2D echo tomorrow and consult infectious disease to help determine if the dialysis catheter should come out. * #Gram positive bacteremia * as above. BLood cultures done on 12/15/2023 growing gram positive cocci. * on IV vancomycin; speciation pending * get 2D echo and ID consulted. * #ESRD on hemodialysis: consult nephrology. On dialysis MWF. # Hyperlipidemia: On statin Type 2 diabetes mellitus: On Lantus 5 units daily. Insulin Sliding scale. Accu- Cheks ACHS. #Hypothyroidism: On Synthroid. #Depression: olanzapine DVT prophylaxis; lovenox, renally dosed. Charges/Coding Visit Charges Inpatient E&M: 76068 Init Hosp L3
--- NOTE | 2023-12-16 18:16 | ED.RN ---
THIS RN TOOK PHONE CALL FROM LAB, PT WAS SEEN YESTERDAY AND HAS A POSITIVE PRELIMINARY BLOOD CULTURE.PT RETURNS TO ED TODAY AND WILL BE ADMITTED. DR. BRIDGES.
[2023-12-16] MEDS: Vancomycin HCl 2,000 MG in 0.9% Normal Saline (500mL Bag) 500 ML 125 MG IV (19:04)
--- NOTE | 2023-12-16 22:06 | ECHOD_ITS ---
Reason For Study: Bacteremia Procedure This was a 2D Doppler, Color Flow transthoracic echocardiogram. Exam performed portable in patient room. Left Ventricle Normal LV size. Left ventricular systolic function is normal. The estimated ejection fraction is 65 %. Stage 2 diastolic dysfunction. No regional wall motion abnormalities noted. Right Ventricle Normal RV size. Normal systolic function. Atria Normal left atrium. Normal right atrium. Mitral Valve Normal mitral valve. Tricuspid Valve Normal tricuspid valve. Mild (1+) tricuspid valve insufficiency. Pulmonary artery systolic pressure is 37 mmHg. Aortic Valve Trisinus/trileaflet aortic valve. Pulmonic Valve Normal pulmonic valve. Great Vessels Normal aortic root. The pulmonary artery is normal size. Normal inferior vena cava. Pericardium/Pleural No pericardial effusion. MMode/2D Measurements & Calculations LVIDd: 4.9 cm IVSd: 1.0 cm Ao root diam: 2.6 cm LVIDs: 3.6 cm LVPWd: 1.0 cm RVDd: 3.7 cm FS: 27.6 % LAV(MOD-bp): 32.9 ml LVAd ap4: 28.7 cm2 SV(MOD-sp4): 51.9 ml LAV(MOD-bp) Indexed: 17.2 ml/m2 LVLd ap4: 8.1 cm LAV(MOD-sp2): 39.4 ml EDV(MOD-sp4): 82.7 ml LAV(MOD-sp4): 27.4 ml EDV(sp4-el): 86.1 ml LVAs ap4: 15.0 cm2 LVLs ap4: 6.7 cm ESV(MOD-sp4): 30.7 ml ESV(sp4-el): 28.4 ml EF(MOD-sp4): 62.8 % EF(sp4-el): 67.0 % SV(sp4-el): 57.7 ml LA A4 area: 13.0 cm2 LA dimension(2D): 3.6 cm RA A4 area: 13.0 cm2 Time Measurements MV dec time: 0.22 sec Doppler Measurements & Calculations MV E max rhys: 111.6 cm/sec Lat Peak E' Rhys: 10.9 cm/sec Med Peak E' Rhys: 7.0 cm/sec MV A max rhys: 96.6 cm/sec E/E' lat: 10.2 E/E' med: 15.9 MV E/A: 1.2 Ao V2 max: 184.1 cm/sec LV V1 max: 133.9 cm/sec MV dec slope: 517.7 cm/sec2 Ao max P.6 mmHg LV V1 max P.2 mmHg Ao V2 mean: 136.4 cm/sec LV V1 mean P.6 mmHg Ao mean P.3 mmHg LV V1 mean: 101.6 cm/sec Ao V2 VTI: 39.1 cm LV V1 VTI: 27.3 cm AV (velocity ratio): 0.70 PA V2 max: 121.3 cm/sec TR max rhys: 289.6 cm/sec TR max P.6 mmHg ECHO/Echo Complete Interpretation Summary Normal LV size. Left ventricular systolic function is normal. The estimated ejection fraction is 65 %. Stage 2 diastolic dysfunction. There is no evidence of a mass or vegetation. This does not rule out endocardit is. Ordering Physician: Ashely Barakat Referring Physician: Raúl Eric Performed By: Mary Mitchell, ELENI, RVT
[2023-12-16] MEDS: 0.9% Saline Lock 10 ML Syringe IV (22:43)
[2023-12-16] MEDS: Acetaminophen 325 MG Tablet 650 MG PO (22:43)
[2023-12-16 23:10] LABS: Bedside Glucose 135 mg/dL (74-106)
[2023-12-17] VITALS (13 sets, daily range): BP systolic 92–146; BP diastolic 38–83; PULSE 80–104; RESP 16–20; TEMP 37.2–38.8; O2SAT 96–100
[2023-12-17 03:08] LABS: Absolute Lymphocyte Count 0.53 X10^3/uL (0.83-4.51); Basophil# 0.02 X10^3/uL; Basophil% 0.2 % (0-1); Eosinophil# 0.02 X10^3/uL; Eosinophils% 0.2 % (0-5); Hematocrit 24.7 % (37-47); Hemoglobin 7.7 g/dL (12.0-15.0); Lymphocyte # 0.53 X10^3/ul (0.83-4.51); Lymphocyte % 5.3 % (19-41); Mean Corp Hgb Conc 31.2 g/dL (32-36); Mean Corpuscular Volume 99.6 fL (81-99); Mean Platelet Vol. 10.5 fl (6.2-12.0); Monocyte# 0.38 X10^3/uL; Monocyte% 3.8 % (0-10); NRBC Flagged by Analyzer 0 % (0-5); Neutrophil # 8.97 X10^3/uL (2.7-7.7); POSITIVE DIFFERENTIAL YES; Platelet Count 184 K/mm3 (150-450); RBC Distribution Width CV 16.2 % (11.6-14.6); RBC Distribution Width SD 56.5 fl (35.1-43.9); Red Blood Count 2.48 M/mm3 (4.2-5.4)
[2023-12-17 03:26] LABS: Anion Gap 8 (5-15); BUN 49 mg/dL (7-18); BUN/Creat Ratio 9.8 RATIO (10-20); Calcium,Total 7.9 mg/dL (8.5-10.1); Chloride 104 mmol/L (98-107); Creatinine, Serum 4.98 mg/dL (0.55-1.02); EST Glomerular Filtration Rate 10 mL/min (>60); Est Glom Filt Rate - Afr Amer 12 mL/min (>60); Estimated Creatinine Clearance 13.13 ml/min; Glucose 150 mg/dL (74-106); Potassium 4.2 mmol/L (3.5-5.1); Sodium Level 139 mmol/L (136-145)
[2023-12-17] MEDS: Acetaminophen 650 MG Suppository RC (04:19)
[2023-12-17 07:49] LABS: Bedside Glucose 144 mg/dL (74-106)
--- NOTE | 2023-12-17 08:34 | PN.HOSP_ITS ---
Reason for Visit Reason for Visit: Diagnoses Encephalopathy, unspecified (12/16/23) Urinary tract infection, site not specified (12/16/23) Fever, unspecified (12/16/23) Objective Data Objective Data Vital Signs: Vital Signs Temp Pulse Resp BP Pulse Ox O2 Del Method O2 Flow Rate 100.8 F H 98 18 124/62 H 98 Nasal Cannula 2 12/17/23 06:31 12/17/23 06:31 12/17/23 06:31 12/17/23 06:31 12/17/23 06:31 12/17/23 06:31 12/17/23 06:31 Oxygen Flow Rate (L/min) 2 Oxygen Delivery Method Nasal Cannula Weight: 79.968 kg Body Mass Index (BMI) 28.4 Intake & Output: Intake and Output for Last 24 Hours 12/15/23 12/16/23 12/17/23 23:59 23:59 23:59 Intake Total 1160 / 1160 Output Total 425 / 425 Balance 1160 / 1160 -425 / -425 Lab / Micro Data 12/17/23 02:43 12/17/23 02:43 Labs: Laboratory Results - last 24 hr 12/16/23 14:24: WBC 7.8, RBC 2.94 L, Hgb 8.9 L, Hct 29.1 L, MCV 99.0, MCH 30.3, MCHC 30.6 L, RDW Std Deviation 55.0 H, RDW Coeff of Fior 15.9 H, Plt Count 204, MPV 10.7, Immature Gran % (Auto) 0.400, Neut % (Auto) 87.3 H, Lymph % (Auto) 5.6 L, [place] % (Auto) 5.9, Eos % (Auto) 0.4, Baso % (Auto) 0.4, Absolute Neuts (auto) 6.9, Absolute Lymphs (auto) 0.44 L, Nucleated RBC % 0, Differential Comment SEE COMMENT, Platelet Estimate ADEQUATE, Hypochromasia RARE, Anisocytosis 1+, Macrocytosis 1+, PT 15.5 H, INR 1.2, APTT 37.2 H, Sodium 138, Potassium 3.9, Chloride 100, Carbon Dioxide 33.0 H, Anion Gap 5, BUN 37 H, Creatinine 4.11 H, Estim Creat Clear Calc 16.13, Est GFR (MDRD) Af Amer 14 L, Est GFR (MDRD) Non-Af 12 L, BUN/Creatinine Ratio 9.0 L, Glucose 151 H, Lactic Acid 1.6, Calcium 9.0, Total Bilirubin 0.60, AST 24, ALT 27, Alkaline Phosphatase 232 H, Total Protein 7.7, Albumin 3.2, Globulin 4.5 H, Albumin/Globulin Ratio 0.7 L 12/16/23 14:33: Urine Color Yellow, Urine Clarity Sl. Cloudy, Urine pH 8.0, Ur Specific [place] 1.010, Urine Protein 500 H, Urine Glucose (UA) 50 H, Urine Ketones Negative, Urine Occult Blood 25 H, Urine Nitrite Negative, Urine Bilirubin Negative, Urine Urobilinogen Normal, Ur Leukocyte Esterase 500 H, Urine RBC 0-5 SEEN, Urine WBC 25-50 SEEN, Ur Squamous Epith Cells 0-5 SEEN, Urine Bacteria 1+, Urine Mucus 0 SEEN 12/16/23 22:33: POC Glucose 135 H 12/17/23 02:43: WBC 10.0, RBC 2.48 L, Hgb 7.7 L, Hct 24.7 L, MCV 99.6 H, MCH 31.0, MCHC 31.2 L, RDW Std Deviation 56.5 H, RDW Coeff of Fior 16.2 H, Plt Count 184, MPV 10.5, Immature Gran % (Auto) 0.500, Neut % (Auto) 90.0 H, Lymph % (Auto) 5.3 L, [place] % (Auto) 3.8, Eos % (Auto) 0.2, Baso % (Auto) 0.2, Absolute Neuts (auto) 9.0 H, Absolute Lymphs (auto) 0.53 L, Nucleated RBC % 0, Sodium 139, Potassium 4.2, Chloride 104, Carbon Dioxide 27.0, Anion Gap 8, BUN 49 H, Creatinine 4.98 H, Estim Creat Clear Calc 13.13, Est GFR (MDRD) Af Amer 12 L, Est GFR (MDRD) Non-Af 10 L, BUN/Creatinine Ratio 9.8 L, Glucose 150 H, Calcium 7.9 L 12/17/23 06:26: POC Glucose 144 H Micro: Microbiology 12/16/23 14:45 Blood Culture (Wb) - Left Hand Blood Culture - Preliminary 12/16/23 14:24 Blood Culture (Wb) - Anticubital Right Blood Culture - Preliminary 12/16/23 14:24 Mucosa - Nasopharyngeal SARS-CoV-2, Influenza & RSV (PCR) - Final Radiography Diagnostic Testing: Radiology Impression Chest X-Ray 12/16/23 13:51 IMPRESSION: No radiographic evidence of acute cardiopulmonary disease. Electronically Signed: Cirilo Kuo MD at 14:24 EST , Physical Exam Narrative GENERAL: cooperative HEENT: Atraumatic; normocephalic EYES; Anicteric, Normal Conjunctiva NECK; supple, normal thyroid, RESPIRATORY: Diminished to auscultation CARDIOVASCULAR: Regular S1 S2, GI: soft, normoactive bowel sounds, : No Renal angle tenderness; EXTREMITIES: No edema, no clubbing, MUSCULOSKELETAL: no muscle wasting NEURO: Awake; no lateralizing signs. SKIN: No Rash PSYCH; Flat affect Assessment & Plan Assessment/Plan (1) Encephalopathy: (2) Fever: (3) UTI (urinary tract infection): PLAN: Plan Patient is a 56-year-old lady with complicated past medical history end-stage renal disease on hemodialysis, diabetes mellitus type 2, admitted with altered mental status 1. Acute metabolic encephalopathy ? Secondary to acute cystitis with gram-positive bacteremia. Patient admitted to regular nursing floor started on broad-spectrum antibiotic therapy awaiting identification and sensitivity 2. Gram-positive bacteremia ? Patient remains on broad-spectrum antibiotic therapy pending identification and sensitivity. 3. End-stage renal disease ? On hemodialysis consult placed to nephrology patient dialysis days on Wednesdays and Fridays 4.? Anemia - Secondary to chronic disorder monitoring H&H and transfuse if patient becomes symptomatic or hemoglobin falls below? 7 5.? Diabetes mellitus type II ?With complications including Charcot foot as well as diabetic foot ulcers.? Patient is on long acting insulin, Accu-Cheks a.c. and at bedtime and covered with sliding scale insulin 6.? Depression with anxiety ? Discontinue patient antidepressants 7.? Dyslipidemia -Patient is on statin therapy, continued at home dose 8.? GERD ? On PPI 9.? Chronic back pain ?Patient is managed with outpatient epidural steroid injection 10. Hypothyroidism - Patient is on levothyroxine home dose continued 11.? Physical deconditioning - Requested for PT OT eval and social media strategist to assist with discharge planning ? 12. DVT prophylaxis - Heparin SC Time spent in the patient's overall evaluation,decision-making process, review of diagnostic data, adjustment of management, discussion with other providers, nursing nursing and ancillary staff involved in patient's care documentation, 55 minutes Charges/Coding Visit Charges Inpatient E&M: 84094 [facility] Hosp L3
[2023-12-17] MEDS: 0.9% Saline Lock 10 ML Syringe IV (09:19)
[2023-12-17] MEDS: Meropenem 500 MG in 0.9% Normal Saline (50mL MB+) 50 ML 100 MG IV ×2 (09:19→21:19)
[2023-12-17] MEDS: Enoxaparin 30 MG/0.3 ML Syringe SC (09:19)
[2023-12-17] MEDS: Insulin Lispro 100 UNIT/ML INSULN.PEN SC ×3 (11:06→22:13)
[2023-12-17 11:30] LABS: Bedside Glucose 192 mg/dL (74-106)
[2023-12-17] MEDS: Acetaminophen 325 MG Tablet 650 MG PO ×3 (12:44→22:05)
[2023-12-17] MEDS: Isosorbide DN 20 MG Tablet PO (12:45)
[2023-12-17] MEDS: hydrALAZINE 25 MG Tablet PO ×2 (12:45→16:40)
[2023-12-17] MEDS: Ferrous Sulfate 325 MG Tablet PO (12:45)
--- NOTE | 2023-12-17 15:54 | CASEMGMT ---
RN CM met with pt bedside to complete assessment. Pt in pain and declining to talk at this time. Pt asks this CM to call her daughter Trisha. Call placed to daughter Trisha at [phone]. No answer and VM has not been set up. Thelma Smallwood MSN, RN, CCM
[2023-12-17] MEDS: Juven (unflavored) Packet 1 PACKET PO (16:39)
[2023-12-17] MEDS: Calcium Acetate 667 MG Capsule PO (16:39)
[2023-12-17] MEDS: Carvedilol 12.5 MG Tablet PO (16:40)
[2023-12-17] MEDS: Pantoprazole Sodium 40 MG Tablet PO (16:40)
[2023-12-17 17:04] LABS: Bedside Glucose 207 mg/dL (74-106)
[2023-12-17] MEDS: OLANZapine 5 MG/TAB TAB.RAPDIS PO (21:18)
[2023-12-17 22:57] LABS: Bedside Glucose 154 mg/dL (74-106)
--- NOTE | 2023-12-17 23:39 | PCM.HOSP.N ---
Hospitalist Note Patient with decrease in BP, has remained stable low but SBP in the 90s, will given judicious IVF bolus and continue to monitor.
[2023-12-17] MEDS: 0.9% Normal Saline (500mL Bag) 500 ML 999 ML IV (23:53)
[2023-12-18] VITALS (16 sets, daily range): BP systolic 92–124; BP diastolic 43–93; PULSE 68–95; RESP 16–19; TEMP 36.6–37.2; O2SAT 85–99
[2023-12-18] MEDS: Levothyroxine 25 MCG TABLET PO (06:20)
[2023-12-18] MEDS: Acetaminophen 325 MG Tablet 650 MG PO ×3 (06:27→23:10)
[2023-12-18 06:53] LABS: Absolute Lymphocyte Count 0.56 X10^3/uL (0.83-4.51); Absolute Neutrophil Count 3.8 X10^3/uL (2.0-7.7); Basophil# 0.02 X10^3/uL; Basophil% 0.4 % (0-1); Eosinophil# 0.13 X10^3/uL; Eosinophils% 2.7 % (0-5); Hematocrit 22.8 % (37-47); Hemoglobin 6.9 g/dL (12.0-15.0); Lymphocyte # 0.56 X10^3/ul (0.83-4.51); Lymphocyte % 11.7 % (19-41); Mean Corp Hgb Conc 30.3 g/dL (32-36); Mean Corpuscular Volume 99.1 fL (81-99); Mean Platelet Vol. 11.4 fl (6.2-12.0); Monocyte# 0.22 X10^3/uL; Monocyte% 4.6 % (0-10); NRBC Flagged by Analyzer 0 % (0-5); Neutrophil # 3.83 X10^3/uL (2.7-7.7); Neutrophil % 80.4 % (47-70); POSITIVE DIFFERENTIAL YES; POSITIVE MORPHOLOGY YES; Platelet Count 141 K/mm3 (150-450); RBC Distribution Width CV 16.5 % (11.6-14.6); RBC Distribution Width SD 57.6 fl (35.1-43.9); White Blood Count 4.8 K/mm3 (4.4-11.0)
[2023-12-18 06:56] LABS: Differential Indicated SCAN CRITERIA MET
[2023-12-18 07:10] LABS: Anion Gap 11 (5-15); BUN 77 mg/dL (7-18); BUN/Creat Ratio 11.7 RATIO (10-20); Chloride 103 mmol/L (98-107); Creatinine, Serum 6.59 mg/dL (0.55-1.02); EST Glomerular Filtration Rate 7 mL/min (>60); Est Glom Filt Rate - Afr Amer 8 mL/min (>60); Estimated Creatinine Clearance 9.93 ml/min; Glucose 131 mg/dL (74-106); Phosphorus 5.2 mg/dL (2.5-4.9); Potassium 4.3 mmol/L (3.5-5.1); Sodium Level 138 mmol/L (136-145)
[2023-12-18 07:27] LABS: Bedside Glucose 128 mg/dL (74-106)
[2023-12-18 07:49] LABS: Differential Comment SCANNED
[2023-12-18] MEDS: Juven (unflavored) Packet 1 PACKET PO ×2 (09:16→16:52)
[2023-12-18] MEDS: Calcium Acetate 667 MG Capsule PO ×3 (09:17→16:52)
[2023-12-18] MEDS: Pantoprazole Sodium 40 MG Tablet PO ×2 (09:17→16:53)
[2023-12-18] MEDS: Enoxaparin 30 MG/0.3 ML Syringe SC (09:18)
[2023-12-18] MEDS: Atorvastatin Calcium 20 MG Tablet PO (09:18)
[2023-12-18] MEDS: Meropenem 500 MG in 0.9% Normal Saline (50mL MB+) 50 ML 100 MG IV (09:18)
[2023-12-18] MEDS: Paroxetine 20 MG Tablet PO (09:18)
[2023-12-18] MEDS: Clopidogrel Bisulfate 75 MG Tablet PO (09:19)
[2023-12-18] MEDS: Insulin Glargine-YFGN 100 UNIT/ML Pen 20 UNIT SC (09:27)
[2023-12-18] MEDS: amLODIPine 5 MG Tablet PO (09:31)
[2023-12-18] MEDS: hydrALAZINE 25 MG Tablet PO ×2 (09:31→16:52)
[2023-12-18] MEDS: Carvedilol 12.5 MG Tablet PO ×2 (09:31→16:51)
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
[2023-12-18] MEDS: Menthol/Lanolin/Calamine/Znox 113 GM Tube 1 APPLIC TOPICAL ×2 (10:38→23:07)
--- NOTE | 2023-12-18 11:38 | CON.PCM.RE_ITS ---
Assessment & Plan Assessment/Plan (1) ESRD on hemodialysis: PLAN: Patient's last dialysis was Tuesday, but unfortunately she had just half of the treatment. Nevertheless she does not appear to be fluid overloaded, uremic, or hyperkalemic. So I think it safe to restart her dialysis treatments tomorrow, put her on her outpatient basis on Tuesday HPI Consult Data Date of Consult: 12/18/23 HPI Narrative Reason for Consultation: ESRD management HPI Narrative: DIONY ROCHA, is a 58 F who presents Tuesday night from dialysis unit after being unresponsive prison through dialysis treatment. She was taken to emergency room and now doing a little bit better. She usually dialyzes severe right-sided internal jugular tunneled hemodialysis catheter on every Tuesday schedule. Today she does appear to be fluid overloaded or uremic her electrolytes are fine. [facility] Medical History Acquired varus deformity of left foot Acquired varus deformity of right foot Acute lumbar radiculopathy Acute on chronic anemia Adult failure to thrive Amputation foot, bilat Anemia due to chronic illness Anemia in chronic illness Anxiety and depression Atherosclerosis of cahto coronary artery of cahto heart without angina pectoris Back pain, chronic Bilateral edema of lower extremity Cellulitis Cellulitis of both lower extremities Charcot's joint of right foot Charcot's joint, left ankle and foot Charcot's joint, right ankle and foot Chronic foot pain Chronic kidney disease, stage 3b Chronic kidney disease, stage 4 (severe) Chronic renal disease, stage 4, severely decreased glomerular filtration rate (GFR) between 15-29 mL/min/1.73 square meter Chronic renal insufficiency Chronic ulcer of left foot with fat layer exposed 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 Chronic ulcer of right foot with fat layer exposed Chronic ulcer of right foot with necrosis of bone Chronic ulcer of right foot with necrosis of muscle Chronic ulcer of right leg with fat layer exposed COVID-19 (08/28/21) CRF (chronic renal failure) Debility Delayed wound healing Diabetes Diabetes mellitus with diabetic polyneuropathy Diabetic foot ulcer associated with type 2 diabetes mellitus Diabetic foot ulcers Diabetic infection of left foot Diabetic polyneuropathy Diabetic ulcer of right ankle Elevated troponin End stage renal disease Essential (primary) hypertension Essential hypertension Foot osteomyelitis, left GERD (gastroesophageal reflux disease) Hemoglobin A1c greater than 9.0% HLD (hyperlipidemia) Hyperparathyroidism, secondary renal Hypertension Iron deficiency anemia Ischemic cardiomyopathy Myocardial infarct Non-compliance Non-pressure chronic ulcer of other part of left foot with fat layer exposed Non-pressure chronic 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 layer exposed Non-smoker Normocytic anemia NSTEMI (non-ST elevated myocardial infarction) (09/20/18) Obesity (BMI 30.0-34.9) Osteomyelitis Osteomyelitis of left foot Osteomyelitis of metatarsal RLS (restless legs syndrome) Stage 4 chronic kidney disease TIA (transient ischemic attack) Type 2 diabetes mellitus 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 Ulcer of left foot with fat layer exposed Ulcer of left foot with muscle involvement without evidence of necrosis Ulcer of left foot with necrosis of muscle Ulcer of right lower extremity with fat layer exposed Home Medications paroxetine HCl 20 mg tablet 20 mg PO DAILY DEPRESSION 07/07/21 [History Last Taken 04/07/22] bupropion HCl 150 mg 24 hr tablet, extended release 150 mg PO DAILY mood 02/04/22 [History Last Taken 04/07/22] sennosides 8.6 mg-docusate sodium 50 mg tablet (Stool Softener-Stimulant Laxative) 2 tab PO BID PRN PRN Constipation #0 tabs 04/24/22 [Rx Last Taken Unknown] ascorbic acid (vitamin C) 500 mg tablet (Vitamin C) 500 mg PO BID supplement 05/05/22 [History Last Taken Unknown] clopidogrel 75 mg tablet 75 mg PO DAILY prevent stroke 07/19/22 [History Last Taken Unknown] ferrous sulfate 325 mg (65 mg iron) tablet 325 mg PO .three times a week anemia 07/19/22 [History Last Taken Unknown] pantoprazole 40 mg tablet,delayed release 40 mg PO BIDCM GERD 07/19/22 [History Last Taken Unknown] insulin glargine-yfgn 100 unit/mL (3 mL) subcutaneous pen 5 unit (0.05 mL) subcut QHS blood sugar #15 mL 07/21/22 [Rx Last Taken Unknown] insulin lispro 100 unit/mL subcutaneous pen (Humalog KwikPen (U-100) Insulin) Se e Protocol subcut TIDAC #0 mL 07/21/22 [Rx Last Taken Unknown] cyclobenzaprine 5 mg tablet 5 mg PO TID PRN muscle spasm #21 tabs 11/26/23 [Rx Last Taken Unknown] gabapentin 100 mg capsule 100 mg PO .COMPLEX PRN pain 11/26/23 [History Last Taken Unknown] Mircera See Rx Instructions .Route .COMPLEX dialysis 12/16/23 [History Last Taken Unknown] Venofer iron 12/16/23 [History Last Taken Unknown] acetaminophen 325 mg capsule 325 mg PO Q4H PRN fever or pain 12/16/23 [History Last Taken Unknown] amlodipine 5 mg tablet 5 mg PO DAILY bp 12/16/23 [History Last Taken Unknown] antacid extra assorted fruit tablets 750 mg PO .every 4 hours PRN tums 12/16/23 [History Last Taken Unknown] atorvastatin 20 mg tablet 20 mg PO DAILY cholestrol 12/16/23 [History Last Taken Unknown] calcitriol 0.5 mcg capsule 0.5 mcg PO .COMPLEX on dialysis 12/16/23 [History Last Taken Unknown] calcium acetate(phosphat bind) 667 mg capsule 676 mg PO TID is on dialysis 12/16/23 [History Last Taken Unknown] carvedilol 12.5 mg tablet 12.5 mg PO BID heart and bp 12/16/23 [History Last Taken Unknown] cloNIDine See Rx Instructions .Route .COMPLEX dialysis 12/16/23 [History Last Taken Unknown] diphenhydramine 25 mg IV itching 12/16/23 [History Last Taken Unknown] folic acid 800 mcg tablet 0.8 mg PO DAILY supplement 12/16/23 [History Last Taken Unknown] hydralazine 25 mg tablet 25 mg PO TID bp 12/16/23 [History Last Taken Unknown] insulin aspart U-100 6 unit subcut TID blood glucose 12/16/23 [History Last Taken Unknown] insulin aspart U-100 100 unit/mL (3 mL) subcutaneous pen subcut 12/16/23 [History Last Taken Unknown] insulin glargine 100 unit/mL (3 mL) subcutaneous pen (Lantus Solostar U-100 Insulin) 20 unit subcut DAILY blood glucose 12/16/23 [History Last Taken Unknown] isosorbide dinitrate 10 mg tablet 20 mg PO TID bp and heart 12/16/23 [History Last Taken Unknown] levothyroxine 25 mcg tablet 25 mcg PO DAILY thyroid 12/16/23 [History Last Taken Unknown] lidocaine-silicone, adhesive topical pain 12/16/23 [History Last Taken Unknown] loperamide 2 mg capsule (Anti-Diarrheal (loperamide)) 2 mg PO Q4H PRN loose stool 12/16/23 [History Last Taken Unknown] melatonin 5 mg capsule 5 mg PO .bedtime sleep 12/16/23 [History Last Taken Unknown] nitroglycerin 0.4 mg sublingual tablet (Nitrostat) 0.4 mg sublingual Q5M chest pain 12/16/23 [History Last Taken Unknown] olanzapine 5 mg tablet 5 mg PO QHS sleep 12/16/23 [History Last Taken Unknown] ondansetron 4 mg disintegrating tablet 4 mg PO DAILY PRN nausea and vomiting 12/16/23 [History Last Taken Unknown] oxycodone-acetaminophen 5 mg-325 mg tablet 1 tab PO Q6H PRN pain 12/16/23 [History Last Taken Unknown] pramipexole dihydrochloride 1.5 mg PO BID unknown 12/16/23 [History Last Taken Unknown] promethazine 25 mg tablet 25 mg PO Q4H PRN nausea and vomiting 12/16/23 [History Last Taken Unknown] Allergy/AdvReac Type Severity Reaction Status Date / Time Penicillins Allergy swelling Verified 12/16/23 13:24 in throat vancomycin Allergy Itching Verified 12/16/23 13:24 metronidazole AdvReac Nausea Verified 12/16/23 13:24 oxycodone [From OxyContin] AdvReac Shortness Verified 12/16/23 13:24 of breath Family History Mother Diabetes CVA (cerebral vascular accident) Brother CAD (coronary artery disease) CABG X 3 Cancer testicular Diabetes Brother CAD (coronary artery disease) CABG X3 Diabetes Brother CAD (coronary artery disease) Stents Diabetes Sister CAD (coronary artery disease) CABG x 3 CVA (cerebral vascular accident) Diabetes Surgical History History of bilateral carpal tunnel release History of History of coronary artery stent placement (12/31/20) History of foot surgery History of rotator cuff surgery Social History household members: none number of children: 2 current occupational status: disabled Smoking Status: Never smoker alcohol intake: never substance use type: does not use caffeine: Yes Type: carbonated beverages Number of servings: 2 ROS ROS Narrative 14 point comprehensive system review was performed, all positives as well as pertinent negatives are reflected in the H&P. At the time of the exam patient is crying loudly and asking for her . She is very distracted Physical Exam Narrative Middle-age female, looks older than stated age, she is very upset Sitting on the side of the bed does not appear to be short of breath Chest with diminished breath sounds Heart is tachycardic Exit site looks fine No edema Lab / Micro Data Attestation: I reviewed the patient's lab results. 12/18/23 05:23 12/18/23 05:23 Labs: Laboratory Results - last 24 hr 12/17/23 10:52: POC Glucose 192 H 12/17/23 16:29: POC Glucose 207 H 12/17/23 22:04: POC Glucose 154 H 12/18/23 05:23: WBC 4.8, RBC 2.30 L, Hgb 6.9 L, Hct 22.8 L, MCV 99.1 H, MCH 30.0, MCHC 30.3 L, RDW Std Deviation 57.6 H, RDW Coeff of Fior 16.5 H, Plt Count 141 L, MPV 11.4, Immature Gran % (Auto) 0.200, Neut % (Auto) 80.4 H, Lymph % (Auto) 11.7 L, [place] % (Auto) 4.6, Eos % (Auto) 2.7, Baso % (Auto) 0.4, Absolute Neuts (auto) 3.8, Absolute Lymphs (auto) 0.56 L, Nucleated RBC % 0, Differential Comment SCANNED, Sodium 138, Potassium 4.3, Chloride 103, Carbon Dioxide 24.0, Anion Gap 11, BUN 77 H, Creatinine 6.59 H, Estim Creat Clear Calc 9.93, Est GFR (MDRD) Af Amer 8 L, Est GFR (MDRD) Non-Af 7 L, BUN/Creatinine Ratio 11.7, Glucose 131 H, Calcium 8.0 L, Phosphorus 5.2 H, Magnesium 2.0 12/18/23 07:08: POC Glucose 128 H 12/18/23 10:32: Crossmatch See Detail Micro: Microbiology 12/16/23 14:45 Blood Culture (Wb) - Left Hand Blood Culture - Final Staphylococcus aureus 12/16/23 14:24 Blood Culture (Wb) - Anticubital Right Blood Culture - Preliminary Staphylococcus aureus 12/16/23 14:33 Urine, Catheterized Urine Culture - Final Culture exhibits no growth. Imaging Radiology Impression Echocardiogram 12/16/23 22:06 Interpretation Summary Normal LV size. Left ventricular systolic function is normal. The estimated ejection fraction is 65 %. Stage 2 diastolic dysfunction. There is no evidence of a mass or vegetation. This does not rule out endocardi tis. Ordering Physician: Ashely Barakat Referring Physician: Raúl Eric Performed By: Mary Mitchell, RDCS, RVT
[2023-12-18] MEDS: Insulin Lispro 100 UNIT/ML INSULN.PEN SC ×2 (11:55→23:13)
[2023-12-18 12:02] LABS: Bedside Glucose 153 mg/dL (74-106)
[2023-12-18] MEDS: Isosorbide DN 20 MG Tablet PO ×2 (14:32→23:08)
[2023-12-18 17:07] LABS: Bedside Glucose 121 mg/dL (74-106)
[2023-12-18] MEDS: OLANZapine 5 MG/TAB TAB.RAPDIS PO (23:08)
[2023-12-18 23:39] LABS: Bedside Glucose 153 mg/dL (74-106)
[2023-12-19] VITALS (22 sets, daily range): BP systolic 105–191; BP diastolic 56–73; PULSE 67–79; RESP 14–74; TEMP 36.4–37.1; O2SAT 93–100; BMI 28.3; BMI 27.8
[2023-12-19] MEDS: Levothyroxine 25 MCG TABLET PO (05:26)
[2023-12-19] MEDS: Isosorbide DN 20 MG Tablet PO ×2 (05:26→22:35)
[2023-12-19] MEDS: Acetaminophen 325 MG Tablet 650 MG PO ×3 (05:27→18:53)
[2023-12-19 05:50] LABS: Bedside Glucose 116 mg/dL (74-106)
[2023-12-19 06:44] LABS: Absolute Lymphocyte Count 0.84 X10^3/uL (0.83-4.51); Absolute Neutrophil Count 2.5 X10^3/uL (2.0-7.7); Basophil# 0.01 X10^3/uL; Basophil% 0.2 % (0-1); Hemoglobin 6.9 g/dL (12.0-15.0); Lymphocyte # 0.84 X10^3/ul (0.83-4.51); Lymphocyte % 20.8 % (19-41); Mean Corp Hgb Conc 32.9 g/dL (32-36); Mean Corpuscular Hgb 31.7 pg (27.0-32.0); Mean Corpuscular Volume 96.3 fL (81-99); Mean Platelet Vol. 11.3 fl (6.2-12.0); Monocyte# 0.47 X10^3/uL; Monocyte% 11.7 % (0-10); NRBC Flagged by Analyzer 0 % (0-5); Neutrophil # 2.49 X10^3/uL (2.7-7.7); Neutrophil % 61.8 % (47-70); Platelet Count 144 K/mm3 (150-450); RBC Distribution Width CV 16.2 % (11.6-14.6); Red Blood Count 2.18 M/mm3 (4.2-5.4)
[2023-12-19 07:21] LABS: Anion Gap 12 (5-15); BUN 106 mg/dL (7-18); BUN/Creat Ratio 13.5 RATIO (10-20); Calcium,Total 7.5 mg/dL (8.5-10.1); Chloride 103 mmol/L (98-107); Creatinine, Serum 7.83 mg/dL (0.55-1.02); EST Glomerular Filtration Rate 6 mL/min (>60); Est Glom Filt Rate - Afr Amer 7 mL/min (>60); Estimated Creatinine Clearance 8.36 ml/min; Glucose 133 mg/dL (74-106); Potassium 4.2 mmol/L (3.5-5.1); Sodium Level 138 mmol/L (136-145)
--- NOTE | 2023-12-19 07:48 | PCM.RX.CS ---
Consult Antibiotic Management Pharmacy has been consulted to manage selected antibiotic: Vancomycin Type of Intervention Type of Consult: Follow-up Labs Labs: Sodium 138 mmol/L (136-145) 12/19/23 06:10 Potassium 4.2 mmol/L (3.5-5.1) 12/19/23 06:10 Chloride 103 mmol/L (98-107) 12/19/23 06:10 Carbon Dioxide 23.0 mmol/L (21.0-32.0) 12/19/23 06:10 Anion Gap 12 (5-15) 12/19/23 06:10 BUN 106 mg/dL (7-18) H* 12/19/23 06:10 Creatinine 7.83 mg/dL (0.55-1.02) H* 12/19/23 06:10 Est GFR (MDRD) Af Amer 7 mL/min (>60) L 12/19/23 06:10 Est GFR (MDRD) Non-Af 6 mL/min (>60) L 12/19/23 06:10 BUN/Creatinine Ratio 13.5 RATIO (10-20) 12/19/23 06:10 Glucose 133 mg/dL (74-106) H 12/19/23 06:10 Microbiology Microbiology: Microbiology 12/16/23 14:24 Blood Culture (Wb) - Anticubital Right Blood Culture - Final Staphylococcus aureus 12/16/23 14:45 Blood Culture (Wb) - Left Hand Blood Culture - Final Staphylococcus aureus 12/16/23 14:33 Urine, Catheterized Urine Culture - Final Culture exhibits no growth. 12/16/23 14:24 Mucosa - Nasopharyngeal SARS-CoV-2, Influenza & RSV (PCR) - Final Goal Trough Goal Trough: 15-20 mcg/mL Pharmacy Plan for Drug Dosing Pharmacy Plan for Drug Dosing: DAILY ASSESSMENT Current Vancomycin Dose: Dose per HD levels Number of Doses Received: ER dose 2g IV x1 12/16/23 @1904 Current Renal Function: on hemodialysis- schedule is M// per nephro consult Renal Function Trend: on HD Lab/Micro: Pending Any Change in Vanc Plan: Patient is scheduled to have HD today, 12/18. Vancomycin 500mg IV x1 was already ordered post-HD for today. Will schedule a random level pre-HD Tuesday to determine post-HD dose. Pending Level: *RANDOM* level 12/21/23 @0600, before next scheduled HD session Pharmacy Service will continue to monitor and adjust dosing as required.
[2023-12-19] MEDS: PureFlow B 2K Dialysis Soln 1 BAG 6 BAG PF (08:22)
[2023-12-19] MEDS: 0.9% Saline Lock 10 ML Syringe IV ×3 (08:22→10:45)
[2023-12-19] MEDS: 0.9% Normal Saline 1,000 ML IV.SOLN. 1000 ML OPERA.SITE (08:22)
[2023-12-19] MEDS: Heparin 10,000 UNITS/10 ML Vial 1600 UNITS IV (10:45)
--- NOTE | 2023-12-19 10:50 | CASEMGMT ---
RN CM Face to Face with patient for initial transition planning/care coordination assessment. RN CM introduced self and role at [facility]. Patient lying in bed, alert and oriented. Patient willing to participate in assessment and is able to answer all questions appropriately. Care providers, pharmacy, and demographics verified. PCP: Jeaneth Specialists: Azeem, crimper operator; Gee, superintendent radio communications; Markel, cardiologsist Preferred Pharmacy: [facility] Insurance: [employer] Prescription Benefit: yes Living Will/HPOA: yes, Daughter Trisha Douglass LNOK: daughter, niece Living Arrangements: Patient lives with niece in a single story home with 3 steps and railing to enter the home. Transportation: niece, [place] DME/HHC: Patient has shower chair, raised toilet, grab bars, walker, glucometer at home. Patient has had HHC in the past. Patient has been to [facility], [facility], and [facility] in the past. Patient attends HD at [facility] Patient wishes to discharge home, will monitor progress with therapy. Patient states he has no further needs or concerns at this time. CM to follow for discharge planning needs that may arise. Disposition Plan: TBD anticipate HHC vs SNF, will monitor for progress with therapy and course of treatment. Erika MANLEY, RN, CM
[2023-12-19 11:28] LABS: Bedside Glucose 130 mg/dL (74-106)
[2023-12-19] MEDS: Paroxetine 20 MG Tablet PO (11:29)
[2023-12-19] MEDS: Calcitriol 0.25 MCG Capsule 0.5 MCG PO (11:30)
[2023-12-19] MEDS: Clopidogrel Bisulfate 75 MG Tablet PO (11:30)
[2023-12-19] MEDS: Pantoprazole Sodium 40 MG Tablet PO ×2 (11:30→16:13)
[2023-12-19] MEDS: Atorvastatin Calcium 20 MG Tablet PO (11:30)
[2023-12-19] MEDS: Menthol/Lanolin/Calamine/Znox 113 GM Tube 1 APPLIC TOPICAL (11:30)
[2023-12-19] MEDS: amLODIPine 5 MG Tablet PO (11:30)
[2023-12-19] MEDS: hydrALAZINE 25 MG Tablet PO ×2 (11:32→16:13)
[2023-12-19] MEDS: Insulin Glargine-YFGN 100 UNIT/ML Pen 20 UNIT SC (11:33)
[2023-12-19] MEDS: oxyCODONE 5 MG Tablet PO ×2 (11:37→18:53)
--- NOTE | 2023-12-19 11:40 | WOUNDNOTE ---
wound photo: left plantar/lateral foot
--- NOTE | 2023-12-19 11:41 | WOUNDNOTE ---
wound photo: right plantar foot
--- NOTE | 2023-12-19 11:42 | WOUNDNOTE ---
wound photo: left anterolateral ankle
--- NOTE | 2023-12-19 11:43 | WOUNDNOTE ---
wound photo: left foot (plantar view)
--- NOTE | 2023-12-19 12:40 | PCM.PN.REN ---
Subjective Subjective Sitting up in bed. No complaints. Just finished hemodialysis. Objective Data Objective Data Vital Signs: Vital Signs Temp Pulse Resp BP Pulse Ox O2 Del Method O2 Flow Rate 97.8 F 79 16 159/73 H 97 Nasal Cannula 2 12/19/23 11:23 12/19/23 11:32 12/19/23 11:23 12/19/23 11:32 12/19/23 11:40 12/19/23 11:40 12/19/23 11:40 Oxygen Flow Rate (L/min) 2 Oxygen Delivery Method Nasal Cannula Weight: 78.5 kg Body Mass Index (BMI) 27.8 Intake & Output: Intake and Output for Last 24 Hours 12/17/23 12/18/23 12/19/23 22:59 23:59 23:59 Intake Total 120 / 120 Output Total 1550 / 1550 Balance -1430 / -1430 Lab / Micro Data 12/19/23 06:10 12/19/23 06:10 Labs: Laboratory Results - last 24 hr 12/18/23 10:32: Blood Type O POSITIVE, Antibody Screen NEGATIVE, Crossmatch See Detail 12/18/23 16:43: POC Glucose 121 H 12/18/23 23:12: POC Glucose 153 H 12/19/23 05:30: POC Glucose 116 H 12/19/23 06:10: WBC 4.0 L, RBC 2.18 L, Hgb 6.9 L, Hct 21.0 L, MCV 96.3, MCH 31.7, MCHC 32.9 D, RDW Std Deviation 56.0 H, RDW Coeff of Fior 16.2 H, Plt Count 144 L, MPV 11.3, Immature Gran % (Auto) 0.500, Neut % (Auto) 61.8, Lymph % (Auto) 20.8, [place] % (Auto) 11.7 H, Eos % (Auto) 5.0, Baso % (Auto) 0.2, Absolute Neuts (auto) 2.5, Absolute Lymphs (auto) 0.84, Nucleated RBC % 0, Sodium 138, Potassium 4.2, Chloride 103, Carbon Dioxide 23.0, Anion Gap 12, BUN 106 H*, Creatinine 7.83 H*, Estim Creat Clear Calc 8.36, Est GFR (MDRD) Af Amer 7 L, Est GFR (MDRD) Non-Af 6 L, BUN/Creatinine Ratio 13.5, Glucose 133 H, Calcium 7.5 L 12/19/23 11:05: POC Glucose 130 H Micro: Microbiology 12/16/23 14:24 Blood Culture (Wb) - Anticubital Right Blood Culture - Final Staphylococcus aureus 12/16/23 14:45 Blood Culture (Wb) - Left Hand Blood Culture - Final Staphylococcus aureus 12/16/23 14:33 Urine, Catheterized Urine Culture - Final Culture exhibits no growth. 12/16/23 14:24 Mucosa - Nasopharyngeal SARS-CoV-2, Influenza & RSV (PCR) - Final Physical Exam Narrative Alert oriented x 3, no apparent distress S1, S2, RRR Lung sounds clear Abdomen soft, nontender No pitting edema Tunneled HD catheter right chest dressing clean, dry and intact Left mid arm AV fistula positive thrill and bruit Assessment & Plan Assessment/Plan (1) ESRD on hemodialysis: (2) Encephalopathy: (3) UTI (urinary tract infection): PLAN: Plan - ESRD on hemodialysis Tuesday at [facility] followed by Dr. Flynn. Patient underwent hemodialysis today and tolerated 1.5 L fluid removal. Likely next dialysis will be on Tuesday. -Acute metabolic encephalopathy felt to be secondary to acute cystitis with Staph aureus bacteremia. Repeat blood cultures drawn today. On Vanco and meropenem. Echo showed no evidence of mass or vegetation. ID consulted. -Anemia of chronic disease; patient to have PRBC transfusion.
[2023-12-19] MEDS: Calcium Acetate 667 MG Capsule PO ×2 (13:14→18:53)
--- NOTE | 2023-12-19 14:09 | PN_ITS ---
Subjective Subjective Patient seen and examined. She was more alert today. She complained of chronic back pain. She was on hemodialysis. Review of systems is otherwise negative. Objective Data Objective Data Vital Signs: Vital Signs Temp Pulse Resp BP Pulse Ox O2 Del Method O2 Flow Rate 97.8 F 79 16 159/73 H 97 Nasal Cannula 2 12/19/23 11:23 12/19/23 11:32 12/19/23 11:23 12/19/23 11:32 12/19/23 11:40 12/19/23 11:40 12/19/23 11:40 Oxygen Flow Rate (L/min) 2 Oxygen Delivery Method Nasal Cannula Weight: 173 lb 1.006 oz Body Mass Index (BMI) 27.8 Intake & Output: Intake and Output for Last 24 Hours 12/17/23 12/18/23 12/19/23 22:59 23:59 23:59 Intake Total 120 / 120 Output Total 1550 / 1550 Balance -1430 / -1430 Lab / Micro Data 12/19/23 06:10 12/19/23 06:10 Labs: Laboratory Results - last 24 hr 12/18/23 10:32: Blood Type O POSITIVE, Antibody Screen NEGATIVE, Crossmatch See Detail 12/18/23 16:43: POC Glucose 121 H 12/18/23 23:12: POC Glucose 153 H 12/19/23 05:30: POC Glucose 116 H 12/19/23 06:10: WBC 4.0 L, RBC 2.18 L, Hgb 6.9 L, Hct 21.0 L, MCV 96.3, MCH 31.7, MCHC 32.9 D, RDW Std Deviation 56.0 H, RDW Coeff of Fior 16.2 H, Plt Count 144 L, MPV 11.3, Immature Gran % (Auto) 0.500, Neut % (Auto) 61.8, Lymph % (Auto) 20.8, [place] % (Auto) 11.7 H, Eos % (Auto) 5.0, Baso % (Auto) 0.2, Absolute Neuts (auto) 2.5, Absolute Lymphs (auto) 0.84, Nucleated RBC % 0, Sodium 138, Potassium 4.2, Chloride 103, Carbon Dioxide 23.0, Anion Gap 12, BUN 106 H*, Creatinine 7.83 H*, Estim Creat Clear Calc 8.36, Est GFR (MDRD) Af Amer 7 L, Est GFR (MDRD) Non-Af 6 L, BUN/Creatinine Ratio 13.5, Glucose 133 H, Calcium 7.5 L 12/19/23 11:05: POC Glucose 130 H Micro: Microbiology 12/16/23 14:24 Blood Culture (Wb) - Anticubital Right Blood Culture - Final Staphylococcus aureus 12/16/23 14:45 Blood Culture (Wb) - Left Hand Blood Culture - Final Staphylococcus aureus 12/16/23 14:33 Urine, Catheterized Urine Culture - Final Culture exhibits no growth. 12/16/23 14:24 Mucosa - Nasopharyngeal SARS-CoV-2, Influenza & RSV (PCR) - Final Physical Exam Const alert and no apparent distress Constitutional Narrative: frail Orientation / Consciousness: lethargic HEENT normocephalic, head/scalp atraumatic and moist oral mucous membranes Eyes PERRL and EOMs intact bilaterally Neck no lymphadenopathy and supple Lymph Lymphatic: no lymphadenopathy noted and no lymphedema noted Resp Resp Narrative: diinished breath sounds bibasally, no wheezes or crackles. on 2L of oxygen Cardio regular rate, regular rhythm, S1 normal heart sound, S2 normal heart sound and no murmurs GI normal to inspection, nondistended, normoactive bowel sounds, soft to palpation, non-tender and non-distended Extremity normal capillary refill, no clubbing, cyanosis or edema and no calf tenderness Extremity Narrative: has dialysis catheter in chest General Extremity: no tenderness to palpation of joints or extremities Skin General Skin Exam: no breakdown Neuro CN's II-XII intact bilaterally and no focal motor deficits Motor Exam: general weakness Psych Mood & Affect: flat affect Assessment & Plan Assessment/Plan (1) UTI (urinary tract infection): (2) ESRD on hemodialysis: PLAN: Plan #Acute encephalopathy, likely due to UTI and Staph bacteremia * more alert today * blood cultures positive for staph aureus * ID consulted. * on IV vancomycin and meropenem * 2D echo showed no evidence of vegetation. * ID recommending removal of catheter * #Staph bacteremia: as above #Acute on chronic anemia of chronic disease * Hb today 6.9. Was 6.9 yesterday too. * likely due to ESRD * transfuse with a unit of PRBC during dialysis today #ESRD. on HD. Nephrology on board. On dialysis MWF. * # Hyperlipidemia: On statin #Type 2 diabetes mellitus: On Lantus 5 units daily. Insulin Sliding scale. Accu-Cheks ACHS. #Hypothyroidism: On Synthroid. #Depression: olanzapine DVT prophylaxis; lovenox, renally dosed. Charges/Coding Visit Charges Inpatient E&M: 37783 Subs Hosp L3
--- NOTE | 2023-12-19 15:40 | CON.PCM.ID_ITS ---
Assessment & Plan Assessment/Plan (1) ESRD on hemodialysis: (2) MSSA bacteremia: PLAN: MSSA bacteremia per pcr, suspect from permacath. Cont vanc/meropenem for now. Repeat bcx pending. Recommend HD line removal if possible. TTE showed no veg, will need HONG later this admit. Will follow, thank you HPI Consult Data Date of Consult: 12/19/23 HPI Narrative Reason for Consultation: bacteremia HPI Narrative: DIONY ROCHA, is a 58 F with ESRD, R chest permacath, prior MSSA bacteremia and osteomyelitis, presented 12/15 due to episode of unresponsiveness while getting dialyzed. Sx associated with fever, chills, dysuria. No pain at HD catheter, no new wounds on extremities. Some headache, no back pain. Came to ED, admitted on vanc/cefepime. Full ROS performed and neg except as noted above. [facility], [facility] Medical History Acquired varus deformity of left foot Acquired varus deformity of right foot Acute lumbar radiculopathy Acute on chronic anemia Adult failure to thrive Amputation foot, bilat Anemia due to chronic illness Anemia in chronic illness Anxiety and depression Atherosclerosis of [place] coronary artery of [place] heart without angina pectoris Back pain, chronic Bilateral edema of lower extremity Cellulitis Cellulitis of both lower extremities Charcot's joint of right foot Charcot's joint, left ankle and foot Charcot's joint, right ankle and foot Chronic foot pain Chronic kidney disease, stage 3b Chronic kidney disease, stage 4 (severe) Chronic renal disease, stage 4, severely decreased glomerular filtration rate (GFR) between 15-29 mL/min/1.73 square meter Chronic renal insufficiency Chronic ulcer of left foot with fat layer exposed 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 Chronic ulcer of right foot with fat layer exposed Chronic ulcer of right foot with necrosis of bone Chronic ulcer of right foot with necrosis of muscle Chronic ulcer of right leg with fat layer exposed COVID-19 (08/28/21) CRF (chronic renal failure) Debility Delayed wound healing Diabetes Diabetes mellitus with diabetic polyneuropathy Diabetic foot ulcer associated with type 2 diabetes mellitus Diabetic foot ulcers Diabetic infection of left foot Diabetic polyneuropathy Diabetic ulcer of right ankle Elevated troponin End stage renal disease Essential (primary) hypertension Essential hypertension Foot osteomyelitis, left GERD (gastroesophageal reflux disease) Hemoglobin A1c greater than 9.0% HLD (hyperlipidemia) Hyperparathyroidism, secondary renal Hypertension Iron deficiency anemia Ischemic cardiomyopathy Myocardial infarct Non-compliance Non-pressure chronic ulcer of other part of left foot with fat layer exposed Non-pressure chronic 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 layer exposed Non-smoker Normocytic anemia NSTEMI (non-ST elevated myocardial infarction) (09/20/18) Obesity (BMI 30.0-34.9) Osteomyelitis Osteomyelitis of left foot Osteomyelitis of metatarsal RLS (restless legs syndrome) Stage 4 chronic kidney disease TIA (transient ischemic attack) Type 2 diabetes mellitus 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 Ulcer of left foot with fat layer exposed Ulcer of left foot with muscle involvement without evidence of necrosis Ulcer of left foot with necrosis of muscle Ulcer of right lower extremity with fat layer exposed Home Medications paroxetine HCl 20 mg tablet 20 mg PO DAILY DEPRESSION 07/07/21 [History Last Taken 04/07/22] bupropion HCl 150 mg 24 hr tablet, extended release 150 mg PO DAILY mood 02/04/22 [History Last Taken 04/07/22] sennosides 8.6 mg-docusate sodium 50 mg tablet (Stool Softener-Stimulant Laxative) 2 tab PO BID PRN PRN Constipation #0 tabs 04/24/22 [Rx Last Taken Unknown] ascorbic acid (vitamin C) 500 mg tablet (Vitamin C) 500 mg PO BID supplement 05/05/22 [History Last Taken Unknown] clopidogrel 75 mg tablet 75 mg PO DAILY prevent stroke 07/19/22 [History Last Taken Unknown] ferrous sulfate 325 mg (65 mg iron) tablet 325 mg PO .three times a week anemia 07/19/22 [History Last Taken Unknown] pantoprazole 40 mg tablet,delayed release 40 mg PO BIDCM GERD 07/19/22 [History Last Taken Unknown] insulin glargine-yfgn 100 unit/mL (3 mL) subcutaneous pen 5 unit (0.05 mL) subcut QHS blood sugar #15 mL 07/21/22 [Rx Last Taken Unknown] insulin lispro 100 unit/mL subcutaneous pen (Humalog KwikPen (U-100) Insulin) See Protocol subcut TIDAC #0 mL 07/21/22 [Rx Last Taken Unknown] cyclobenzaprine 5 mg tablet 5 mg PO TID PRN muscle spasm #21 tabs 11/26/23 [Rx Last Taken Unknown] gabapentin 100 mg capsule 100 mg PO .COMPLEX PRN pain 11/26/23 [History Last Taken Unknown] Mircera See Rx Instructions .Route .COMPLEX dialysis 12/16/23 [History Last Taken Unknown] Venofer iron 12/16/23 [History Last Taken Unknown] acetaminophen 325 mg capsule 325 mg PO Q4H PRN fever or pain 12/16/23 [History Last Taken Unknown] amlodipine 5 mg tablet 5 mg PO DAILY bp 12/16/23 [History Last Taken Unknown] antacid extra assorted fruit tablets 750 mg PO .every 4 hours PRN tums 12/16/23 [History Last Taken Unknown] atorvastatin 20 mg tablet 20 mg PO DAILY cholestrol 12/16/23 [History Last Taken Unknown] calcitriol 0.5 mcg capsule 0.5 mcg PO .COMPLEX on dialysis 12/16/23 [History Last Taken Unknown] calcium acetate(phosphat bind) 667 mg capsule 676 mg PO TID is on dialysis 12/16/23 [History Last Taken Unknown] carvedilol 12.5 mg tablet 12.5 mg PO BID heart and bp 12/16/23 [History Last Taken Unknown] cloNIDine See Rx Instructions .Route .COMPLEX dialysis 12/16/23 [History Last Taken Unknown] diphenhydramine 25 mg IV itching 12/16/23 [History Last Taken Unknown] folic acid 800 mcg tablet 0.8 mg PO DAILY supplement 12/16/23 [History Last Taken Unknown] hydralazine 25 mg tablet 25 mg PO TID bp 12/16/23 [History Last Taken Unknown] insulin aspart U-100 6 unit subcut TID blood glucose 12/16/23 [History Last Last en Unknown] insulin aspart U-100 100 unit/mL (3 mL) subcutaneous pen subcut 12/16/23 [History Last Taken Unknown] insulin glargine 100 unit/mL (3 mL) subcutaneous pen (Lantus Solostar U-100 Insulin) 20 unit subcut DAILY blood glucose 12/16/23 [History Last Taken Unknown] isosorbide dinitrate 10 mg tablet 20 mg PO TID bp and heart 12/16/23 [History Last Taken Unknown] levothyroxine 25 mcg tablet 25 mcg PO DAILY thyroid 12/16/23 [History Last Taken Unknown] lidocaine-silicone, adhesive topical pain 12/16/23 [History Last Taken Unknown] loperamide 2 mg capsule (Anti-Diarrheal (loperamide)) 2 mg PO Q4H PRN loose stool 12/16/23 [History Last Taken Unknown] melatonin 5 mg capsule 5 mg PO .bedtime sleep 12/16/23 [History Last Taken Unknown] nitroglycerin 0.4 mg sublingual tablet (Nitrostat) 0.4 mg sublingual Q5M chest pain 12/16/23 [History Last Taken Unknown] olanzapine 5 mg tablet 5 mg PO QHS sleep 12/16/23 [History Last Taken Unknown] ondansetron 4 mg disintegrating tablet 4 mg PO DAILY PRN nausea and vomiting 12/16/23 [History Last Taken Unknown] oxycodone-acetaminophen 5 mg-325 mg tablet 1 tab PO Q6H PRN pain 12/16/23 [History Last Taken Unknown] pramipexole dihydrochloride 1.5 mg PO BID unknown 12/16/23 [History Last Taken Unknown] promethazine 25 mg tablet 25 mg PO Q4H PRN nausea and vomiting 12/16/23 [History Last Taken Unknown] Allergy/AdvReac Type Severity Reaction Status Date / Time Penicillins Allergy swelling Verified 12/16/23 13:24 in throat vancomycin Allergy Itching Verified 12/16/23 13:24 metronidazole AdvReac Nausea Verified 12/16/23 13:24 oxycodone [From OxyContin] AdvReac Shortness Verified 12/16/23 13:24 of breath Family History Mother Diabetes CVA (cerebral vascular accident) Brother CAD (coronary artery disease) CABG X 3 Cancer testicular Diabetes Brother CAD (coronary artery disease) CABG X3 Diabetes Brother CAD (coronary artery disease) Stents Diabetes Sister CAD (coronary artery disease) CABG x 3 CVA (cerebral vascular accident) Diabetes Surgical History History of bilateral carpal tunnel release History of History of coronary artery stent placement (12/31/20) History of foot surgery History of rotator cuff surgery Social History household members: none number of children: 2 current occupational status: disabled Smoking Status: Never smoker alcohol intake: never substance use type: does not use caffeine: Yes Type: carbonated beverages Number of servings: 2 Physical Exam Const alert General Appearance: cooperative HEENT normocephalic Eyes PERRL and EOMs intact bilaterally Neck supple and No nodes Resp normal air movement and clear to auscultation bilaterally Cardio regular rate and regular rhythm GI soft to palpation, non-tender and non-distended Extremity General Extremity: edema Skin Skin Narrative: No tenderness over R chest permacath. Splinter hemorrhages on R 5th finger and L 2nd finger. Neuro CN's II-XII intact bilaterally Lab / Micro Data Attestation: I reviewed the patient's lab results. 12/19/23 06:10 12/19/23 06:10 Labs: Laboratory Results - last 24 hr 12/18/23 10:32: Blood Type O POSITIVE, Antibody Screen NEGATIVE, Crossmatch See Detail 12/18/23 16:43: POC Glucose 121 H 12/18/23 23:12: POC Glucose 153 H 12/19/23 05:30: POC Glucose 116 H 12/19/23 06:10: WBC 4.0 L, RBC 2.18 L, Hgb 6.9 L, Hct 21.0 L, MCV 96.3, MCH 31.7, MCHC 32.9 D, RDW Std Deviation 56.0 H, RDW Coeff of Fior 16.2 H, Plt Count 144 L, MPV 11.3, Immature Gran % (Auto) 0.500, Neut % (Auto) 61.8, Lymph % (Auto) 20.8, [place] % (Auto) 11.7 H, Eos % (Auto) 5.0, Baso % (Auto) 0.2, Absolute Neuts (auto) 2.5, Absolute Lymphs (auto) 0.84, Nucleated RBC % 0, Sodium 138, Po tassium 4.2, Chloride 103, Carbon Dioxide 23.0, Anion Gap 12, BUN 106 H*, Creatinine 7.83 H*, Estim Creat Clear Calc 8.36, Est GFR (MDRD) Af Amer 7 L, Est GFR (MDRD) Non-Af 6 L, BUN/Creatinine Ratio 13.5, Glucose 133 H, Calcium 7.5 L 12/19/23 11:05: POC Glucose 130 H Micro: Microbiology 12/16/23 14:24 Blood Culture (Wb) - Anticubital Right Blood Culture - Final Staphylococcus aureus
[2023-12-19] MEDS: Insulin Lispro 100 UNIT/ML INSULN.PEN SC ×2 (16:12→22:42)
[2023-12-19] MEDS: Carvedilol 12.5 MG Tablet PO (16:13)
[2023-12-19] MEDS: Meropenem 500 MG in 0.9% Normal Saline (50mL MB+) 50 ML 100 MG IV (16:52)
[2023-12-19 17:11] LABS: Bedside Glucose 151 mg/dL (74-106)
--- NOTE | 2023-12-19 18:25 | EX.PCM.CON.S ---
Assessment & Plan Assessment/Plan (1) MSSA bacteremia: PLAN: I was consulted to remove the patient's right chest tunneled dialysis catheter. I discussed the risks of bleeding and infection with the patient. Patient agreed to proceed. I did remove the catheter at bedside. See the operative report for that. The patient tolerated the procedure well. Bandages were placed as well as a nylon suture to close the counterincision. The nylon suture should be removed in 7 to 10 days. Awaiting nephrology input to see if she needs another catheter placed. If she does I can find time on to place a new catheter but the patient really wants to wait for peritoneal dialysis but that is over 10 days away. Juan Alberto Mcgregor MD Pager: [facility] [address] [place] [address] [address] [place] [address] Office: HPI Consult Data Date of Consult: 12/19/23 HPI Narrative HPI Narrative: DIONY ROCHA, is a 58 F who has bacteremia. I was consulted to remove her tunneled dialysis catheter in the right chest. This has been there for several years according to her. She says she is scheduled in 10 days to have a peritoneal dialysis catheter placed. She was having fevers and chills which brought her in the hospital. [facility] Medical History Acquired varus deformity of left foot Acquired varus deformity of right foot Acute lumbar radiculopathy Acute on chronic anemia Adult failure to thrive Amputation foot, bilat Anemia due to chronic illness Anemia in chronic illness Anxiety and depression Atherosclerosis of jena coronary artery of jena heart without angina pectoris Back pain, chronic Bilateral edema of lower extremity Cellulitis Cellulitis of both lower extremities Charcot's joint of right foot Charcot's joint, left ankle and foot Charcot's joint, right ankle and foot Chronic foot pain Chronic kidney disease, stage 3b Chronic kidney disease, stage 4 (severe) Chronic renal disease, stage 4, severely decreased glomerular filtration rate (GFR) between 15-29 mL/min/1.73 square meter Chronic renal insufficiency Chronic ulcer of left foot with fat layer exposed 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 Chronic ulcer of right foot with fat layer exposed Chronic ulcer of right foot with necrosis of bone Chronic ulcer of right foot with necrosis of muscle Chronic ulcer of right leg with fat layer exposed COVID-19 (08/28/21) CRF (chronic renal failure) Debility Delayed wound healing Diabetes Diabetes mellitus with diabetic polyneuropathy Diabetic foot ulcer associated with type 2 diabetes mellitus Diabetic foot ulcers Diabetic infection of left foot Diabetic polyneuropathy Diabetic ulcer of right ankle Elevated troponin End stage renal disease Essential (primary) hypertension Essential hypertension Foot osteomyelitis, left GERD (gastroesophageal reflux disease) Hemoglobin A1c greater than 9.0% HLD (hyperlipidemia) Hyperparathyroidism, secondary renal Hypertension Iron deficiency anemia Ischemic cardiomyopathy Myocardial infarct Non-compliance Non-pressure chronic ulcer of other part of left foot with fat layer exposed Non-pressure chronic 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 layer exposed Non-smoker Normocytic anemia NSTEMI (non-ST elevated myocardial infarction) (09/20/18) Obesity (BMI 30.0-34.9) Osteomyelitis Osteomyelitis of left foot Osteomyelitis of metatarsal RLS (restless legs syndrome) Stage 4 chronic kidney disease TIA (transient ischemic attack) Type 2 diabetes mellitus 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 Ulcer of left foot with fat layer exposed Ulcer of left foot with muscle involvement without evidence of necrosis Ulcer of left foot with necrosis of muscle Ulcer of right lower extremity with fat layer exposed Home Medications paroxetine HCl 20 mg tablet 20 mg PO DAILY DEPRESSION 07/07/21 [History Last Taken 04/07/22] bupropion HCl 150 mg 24 hr tablet, extended release 150 mg PO DAILY mood 02/04/22 [History Last Taken 04/07/22] sennosides 8.6 mg-docusate sodium 50 mg tablet (Stool Softener-Stimulant Laxative) 2 tab PO BID PRN PRN Constipation #0 tabs 04/24/22 [Rx Last Taken Unknown] ascorbic acid (vitamin C) 500 mg tablet (Vitamin C) 500 mg PO BID supplement 05/05/22 [History Last Taken Unknown] clopidogrel 75 mg tablet 75 mg PO DAILY prevent stroke 07/19/22 [History Last Taken Unknown] ferrous sulfate 325 mg (65 mg iron) tablet 325 mg PO .three times a week anemia 07/19/22 [History Last Taken Unknown] pantoprazole 40 mg tablet,delayed release 40 mg PO BIDCM GERD 07/19/22 [History Last Taken Unknown] insulin glargine-yfgn 100 unit/mL (3 mL) subcutaneous pen 5 unit (0.05 mL) subcut QHS blood sugar #15 mL 07/21/22 [Rx Last Taken Unknown] insulin lispro 100 unit/mL subcutaneous pen (Humalog KwikPen (U-100) Insulin) See Protocol subcut TIDAC #0 mL 07/21/22 [Rx Last Taken Unknown] cyclobenzaprine 5 mg tablet 5 mg PO TID PRN muscle spasm #21 tabs 11/26/23 [Rx Last Taken Unknown] gabapentin 100 mg capsule 100 mg PO .COMPLEX PRN pain 11/26/23 [History Last Taken Unknown] Mircera See Rx Instructions .Route .COMPLEX dialysis 12/16/23 [History Last Taken Unknown] Venofer iron 12/16/23 [History Last Taken Unknown] acetaminophen 325 mg capsule 325 mg PO Q4H PRN fever or pain 12/16/23 [History Last Taken Unknown] amlodipine 5 mg tablet 5 mg PO DAILY bp 12/16/23 [History Last Taken Unknown] antacid extra assorted fruit tablets 750 mg PO .every 4 hours PRN tums 12/16/23 [History Last Taken Unknown] atorvastatin 20 mg tablet 20 mg PO DAILY cholestrol 12/16/23 [History Last Taken Unknown] calcitriol 0.5 mcg capsule 0.5 mcg PO .COMPLEX on dialysis 12/16/23 [History Last Taken Unknown] calcium acetate(phosphat bind) 667 mg capsule 676 mg PO TID is on dialysis 12/16/23 [History Last Taken Unknown] carvedilol 12.5 mg tablet 12.5 mg PO BID heart and bp 12/16/23 [History Last Taken Unknown] cloNIDine See Rx Instructions .Route .COMPLEX dialysis 12/16/23 [History Last Taken Unknown] diphenhydramine 25 mg IV itching 12/16/23 [History Last Taken Unknown] folic acid 800 mcg tablet 0.8 mg PO DAILY supplement 12/16/23 [History Last Taken Unknown] hydralazine 25 mg tablet 25 mg PO TID bp 12/16/23 [History Last Taken Unknown] insulin aspart U-100 6 unit subcut TID blood glucose 12/16/23 [History Last Taken Unknown] insulin aspart U-100 100 unit/mL (3 mL) subcutaneous pen subcut 12/16/23 [History Last Taken Unknown] insulin glargine 100 unit/mL (3 mL) subcutaneous pen (Lantus Solostar U-100 Insulin) 20 unit subcut DAILY blood glucose 12/16/23 [History Last Taken Unknown] isosorbide dinitrate 10 mg tablet 20 mg PO TID bp and heart 12/16/23 [History Last Taken Unknown] levothyroxine 25 mcg tablet 25 mcg PO DAILY thyroid 12/16/23 [History Last Taken Unknown] lidocaine-silicone, adhesive topical pain 12/16/23 [History Last Taken Unknown] loperamide 2 mg capsule (Anti-Diarrheal (loperamide)) 2 mg PO Q4H PRN loose stool 12/16/23 [History Last Taken Unknown] melatonin 5 mg capsule 5 mg PO .bedtime sleep 12/16/23 [History Last Taken Unknown] nitroglycerin 0.4 mg sublingual tablet (Nitrostat) 0.4 mg sublingual Q5M chest pain 12/16/23 [History Last Taken Unknown] olanzapine 5 mg tablet 5 mg PO QHS sleep 12/16/23 [History Last Taken Unknown] ondansetron 4 mg disintegrating tablet 4 mg PO DAILY PRN nausea and vomiting 12/16/23 [History Last Taken Unknown] oxycodone-acetaminophen 5 mg-325 mg tablet 1 tab PO Q6H PRN pain 12/16/23 [History Last Taken Unknown] pramipexole dihydrochloride 1.5 mg PO BID unknown 12/16/23 [History Last Taken Unknown] promethazine 25 mg tablet 25 mg PO Q4H PRN nausea and vomiting 12/16/23 [History Last Taken Unknown] Allergy/AdvReac Type Severity Reaction Status Date / Time Penicillins Allergy swelling Verified 12/16/23 13:24 in throat vancomycin Allergy Itching Verified 12/16/23 13:24 metronidazole AdvReac Nausea Verified 12/16/23 13:24 oxycodone [From OxyContin] AdvReac Shortness Verified 12/16/23 13:24 of breath Family History Mother Diabetes CVA (cerebral vascular accident) Brother CAD (coronary artery disease) CABG X 3 Cancer testicular Diabetes Brother CAD (coronary artery disease) CABG X3 Diabetes Brother CAD (coronary artery disease) Stents Diabetes Sister CAD (coronary artery disease) CABG x 3 CVA (cerebral vascular accident) Diabetes Surgical History History of bilateral carpal tunnel release History of History of coronary artery stent placement (12/31/20) History of foot surgery History of rotator cuff surgery Social History household members: none number of children: 2 current occupational status: disabled Smoking Status: Never smoker alcohol intake: never substance use type: does not use caffeine: Yes Type: carbonated beverages Number of servings: 2 ROS Constitutional Constitutional: Reports chills; Denies anorexia or fatigue Eyes Eyes: Denies blurry vision ENT HEENT: Denies abnormal hearing Cardiovascular Cardiovascular: Denies chest pain Respiratory/Chest Respiratory/Chest: Denies cough or dyspnea Gastrointestinal Gastrointestinal: Denies abdominal pain, nausea or vomiting Genitourinary Genitourinary: Denies change in urinary stream Musculoskeletal Musculoskeletal: Denies abnormal gait Integumentary Integumentary: Denies jaundice Neurologic Neurologic: Denies dizziness Psychiatric Psychiatric: Denies anxiety Physical Exam Const alert and oriented x3 HEENT normocephalic Eyes PERRL Resp normal respiratory effort and normal air movement Cardio regular rate and regular rhythm GI soft to palpation, non-tender and non-distended Extremity normal to inspection Lab / Micro Data 12/19/23 06:10 12/19/23 06:10 Labs: Laboratory Results - last 24 hr 12/18/23 10:32: Blood Type O POSITIVE, Antibody Screen NEGATIVE, Crossmatch See Detail 12/18/23 23:12: POC Glucose 153 H 12/19/23 05:30: POC Glucose 116 H 12/19/23 06:10: WBC 4.0 L, RBC 2.18 L, Hgb 6.9 L, Hct 21.0 L, MCV 96.3, MCH 31.7, MCHC 32.9 D, RDW Std Deviation 56.0 H, RDW Coeff of Fior 16.2 H, Plt Count 144 L, MPV 11.3, Immature Gran % (Auto) 0.500, Neut % (Auto) 61.8, Lymph % (Auto) 20.8, [place] % (Auto) 11.7 H, Eos % (Auto) 5.0, Baso % (Auto) 0.2, Absolute Neuts (auto) 2.5, Absolute Lymphs (auto) 0.84, Nucleated RBC % 0, Sodium 138, Potassium 4.2, Chloride 103, Carbon Dioxide 23.0, Anion Gap 12, BUN 106 H*, Creatinine 7.83 H*, Estim Creat Clear Calc 8.36, Est GFR (MDRD) Af Amer 7 L, Est GFR (MDRD) Non-Af 6 L, BUN/Creatinine Ratio 13.5, Glucose 133 H, Calcium 7.5 L 12/19/23 11:05: POC Glucose 130 H 12/19/23 16:10: POC Glucose 151 H Micro: Microbiology 12/16/23 14:24 Blood Culture (Wb) - Anticubital Right Blood Culture - Final Staphylococcus aureus
--- NOTE | 2023-12-19 18:29 | PCM.OPRPT ---
Report of Operation Date of Procedure: 12/19/23 Pre-Operative Diagnosis: Bacteremia and need for dialysis catheter removal Post-Operative Diagnosis: Same Surgery/Procedure Performed:: Right chest tunneled dialysis catheter removal at the bedside Type of Anesthesia: Local Estimated Blood Loss (mL): 5 Description of Procedure: The patient's right chest was prepped and draped. The suture to the catheter was cut. The cuff was considerably higher than the exit incision. The area over the cuff was injected with local anesthetic and then a small incision was made with a scalpel. The cuff was dissected free circumferentially using sharp dissection. The catheter and cuff were then removed. The counterincision was closed with a 3-0 nylon suture. Bandages were applied. Patient tolerated the procedure well.
[2023-12-19] MEDS: Vancomycin IV 500 MG/100 ML BAG 100 MG IV (18:52)
[2023-12-19] MEDS: Pramipexole Di-HCl 1 MG Tablet 1.5 MG PO (22:35)
[2023-12-19] MEDS: OLANZapine 5 MG/TAB TAB.RAPDIS PO (22:36)
[2023-12-19] MEDS: Ascorbic Acid 500 MG Tablet PO (22:36)
[2023-12-19 23:03] LABS: Bedside Glucose 188 mg/dL (74-106)
[2023-12-19] MEDS: Ondansetron 4 MG/2 ML Vial IV (23:20)
[2023-12-20] VITALS (16 sets, daily range): BP systolic 106–138; BP diastolic 45–71; PULSE 71–85; RESP 15–20; TEMP 36.3–36.8; O2SAT 90–98; BMI 27.8
[2023-12-20] MEDS: Levothyroxine 25 MCG TABLET PO (05:59)
[2023-12-20] MEDS: Isosorbide DN 20 MG Tablet PO ×2 (05:59→21:25)
[2023-12-20 06:21] LABS: Bedside Glucose 100 mg/dL (74-106)
[2023-12-20 08:03] LABS: Absolute Neutrophil Count 2.7 X10^3/uL (2.0-7.7); Basophil# 0.03 X10^3/uL; Basophil% 0.6 % (0-1); Eosinophil# 0.27 X10^3/uL; Eosinophils% 5.7 % (0-5); Hematocrit 22.9 % (37-47); Hemoglobin 7.2 g/dL (12.0-15.0); Lymphocyte % 23.4 % (19-41); Mean Corp Hgb Conc 31.4 g/dL (32-36); Mean Corpuscular Hgb 30.1 pg (27.0-32.0); Mean Corpuscular Volume 95.8 fL (81-99); Mean Platelet Vol. 11.2 fl (6.2-12.0); Monocyte# 0.56 X10^3/uL; Monocyte% 11.9 % (0-10); NRBC Flagged by Analyzer 0 % (0-5); Neutrophil # 2.73 X10^3/uL (2.7-7.7); Platelet Count 146 K/mm3 (150-450); RBC Distribution Width CV 15.6 % (11.6-14.6); RBC Distribution Width SD 53.8 fl (35.1-43.9); Red Blood Count 2.39 M/mm3 (4.2-5.4); White Blood Count 4.7 K/mm3 (4.4-11.0)
[2023-12-20 08:29] LABS: Anion Gap 9 (5-15); BUN 88 mg/dL (7-18); BUN/Creat Ratio 13.9 RATIO (10-20); Calcium,Total 7.6 mg/dL (8.5-10.1); Chloride 106 mmol/L (98-107); Creatinine, Serum 6.33 mg/dL (0.55-1.02); EST Glomerular Filtration Rate 7 mL/min (>60); Est Glom Filt Rate - Afr Amer 9 mL/min (>60); Estimated Creatinine Clearance 10.24 ml/min; Glucose 106 mg/dL (74-106); Potassium 4.1 mmol/L (3.5-5.1); Sodium Level 139 mmol/L (136-145)
[2023-12-20] MEDS: Juven (unflavored) Packet 1 PACKET PO ×2 (08:37→16:44)
[2023-12-20] MEDS: Paroxetine 20 MG Tablet PO (08:37)
[2023-12-20] MEDS: Clopidogrel Bisulfate 75 MG Tablet PO (08:37)
[2023-12-20] MEDS: amLODIPine 5 MG Tablet PO (08:37)
[2023-12-20] MEDS: Calcium Acetate 667 MG Capsule PO ×2 (08:37→16:46)
[2023-12-20] MEDS: Ascorbic Acid 500 MG Tablet PO ×2 (08:38→21:25)
[2023-12-20] MEDS: hydrALAZINE 25 MG Tablet PO ×2 (08:38→16:44)
[2023-12-20] MEDS: Pantoprazole Sodium 40 MG Tablet PO ×2 (08:38→16:46)
[2023-12-20] MEDS: Folic Acid 1 MG Tablet PO (08:39)
[2023-12-20] MEDS: Pramipexole Di-HCl 1 MG Tablet 1.5 MG PO ×2 (08:39→21:25)
[2023-12-20] MEDS: Carvedilol 12.5 MG Tablet PO ×2 (08:40→16:44)
[2023-12-20] MEDS: Menthol/Lanolin/Calamine/Znox 113 GM Tube 1 APPLIC TOPICAL (08:41)
[2023-12-20] MEDS: buPROPion (XL) 150 MG TABLET.XL PO (08:41)
[2023-12-20] MEDS: Insulin Glargine-YFGN 100 UNIT/ML Pen 20 UNIT SC (08:42)
[2023-12-20] MEDS: Atorvastatin Calcium 20 MG Tablet PO (08:43)
--- NOTE | 2023-12-20 10:32 | PCM.PN.ID ---
Physical Exam Narrative Line removed, no fever, feeling a little better Const alert and no apparent distress Resp normal air movement and clear to auscultation bilaterally Cardio regular rate and regular rhythm GI soft to palpation, non-tender and non-distended Skin no rashes or lesions noted ID ID: Route of nutrition/ use of supplements: [] Nutritional Intake: [] IV Site: [] [place] Catheter: [] Assessment & Plan Assessment/Plan (1) ESRD on hemodialysis: (2) MSSA bacteremia: PLAN: MSSA bacteremia, suspect from permacath. Line removed 12/19/23. Will repeat bcx, check HONG. No veg seen on TTE. Will narrow abx to cefepime. Will follow
--- NOTE | 2023-12-20 10:47 | PN.RENAL_ITS ---
Subjective Subjective No new complaints today Objective Data Objective Data Vital Signs: Vital Signs Temp Pulse Resp BP Pulse Ox O2 Del Method O2 Flow Rate 98 F 71 17 130/69 H 96 Room Air 2 12/20/23 08:34 12/20/23 08:38 12/20/23 08:34 12/20/23 08:34 12/20/23 08:36 12/20/23 09:36 12/19/23 11:40 Oxygen Flow Rate (L/min) 2 Oxygen Delivery Method Room Air Weight: 78.5 kg Body Mass Index (BMI) 27.8 Intake & Output: Intake and Output for Last 24 Hours 12/18/23 12/19/23 12/20/23 23:59 23:59 23:59 Intake Total 1000 / 1000 Output Total 1725 / 1725 1600 / 1600 Balance -725 / -725 -1600 / -1600 Lab / Micro Data 12/20/23 07:30 12/20/23 07:30 Labs: Laboratory Results - last 24 hr 12/19/23 11:05: POC Glucose 130 H 12/19/23 16:10: POC Glucose 151 H 12/19/23 22:41: POC Glucose 188 H 12/20/23 06:01: POC Glucose 100 12/20/23 07:30: WBC 4.7, RBC 2.39 L, Hgb 7.2 L, Hct 22.9 L, MCV 95.8, MCH 30.1, MCHC 31.4 L, RDW Std Deviation 53.8 H, RDW Coeff of Fior 15.6 H, Plt Count 146 L, MPV 11.2, Immature Gran % (Auto) 0.400, Neut % (Auto) 58.0, Lymph % (Auto) 23.4, [place] % (Auto) 11.9 H, Eos % (Auto) 5.7 H, Baso % (Auto) 0.6, Absolute Neuts (auto) 2.7, Absolute Lymphs (auto) 1.10, Nucleated RBC % 0, Sodium 139, Potassium 4.1, Chloride 106, Carbon Dioxide 24.0, Anion Gap 9, BUN 88 H, Creatinine 6.33 H, Estim Creat Clear Calc 10.24, Est GFR (MDRD) Af Amer 9 L, Est GFR (MDRD) Non-Af 7 L, BUN/Creatinine Ratio 13.9, Glucose 106, Calcium 7.6 L Micro: Microbiology 12/16/23 14:24 Blood Culture (Wb) - Anticubital Right Blood Culture - Final Staphylococcus aureus 12/16/23 14:45 Blood Culture (Wb) - Left Hand Blood Culture - Final Staphylococcus aureus 12/16/23 14:33 Urine, Catheterized Urine Culture - Final Culture exhibits no growth. 12/16/23 14:24 Mucosa - Nasopharyngeal SARS-CoV-2, Influenza & RSV (PCR) - Final Physical Exam Narrative Alert oriented x 3, no apparent distress S1, S2, RRR Lung sounds clear Abdomen soft, nontender No pitting edema Left mid arm AV fistula positive thrill and bruit Assessment & Plan Assessment/Plan (1) ESRD on hemodialysis: (2) Encephalopathy: (3) UTI (urinary tract infection): PLAN: Plan - ESRD on hemodialysis Tuesday at [facility] followed by Dr. Flynn. -Acute metabolic encephalopathy felt to be secondary to acute cystitis with Staph aureus bacteremia. Staph bacteremia. Right IJ dialysis catheter removed. She has a left arm brachiocephalic fistula but it appears fairly deep. She says the dialysis unit could not get fistula because it was too deep. She says that the surgeon in [place] placed the fistula but was not remember the name. She says she is in the process of switching to the peritoneal dialysis. Repeat blood cultures pending finalization. Will need a tunneled dialysis line when cleared by ID -Anemia of chronic disease; s/p PRBC
--- NOTE | 2023-12-20 11:04 | PCM.PROGNOTE ---
Subjective Subjective Patient seen and examined. Per her nurse, she was a bit confused this morning, but at time of my review, she was alert and oriented and lisette to communicate. She said she wanted to go home. She had no other active complaints. She had her dialysis catheter removed yesterday. Review of systems is otherwise negative. Later in the day, patient was noted to have left-sided weakness which appeared to be new. She also had some slurred speech. A stroke alert was called and patient was taken emergently for CT of the brain without contrast and a CTA head and neck. CT of the brain showed abnormal attenuation within the right MCA territory with disruption of the sulci and gyral pattern consistent with a recent infarct with evidence of previous infarct in the left temporal and right occipital lobes suggesting patient may have underlying embolic issues. Per discussion with the radiologist, this appeared to be a subacute infarct. Patient was not deemed to be a tPA candidate and she could also not be started on aspirin or Plavix. Neurologist due to concerns about underlying infective endocarditis. Objective Data Objective Data Vital Signs: Vital Signs Temp Pulse Resp BP Pulse Ox O2 Del Method O2 Flow Rate 98 F 71 17 130/69 H 96 Room Air 2 12/20/23 08:34 12/20/23 08:38 12/20/23 08:34 12/20/23 08:34 12/20/23 08:36 12/20/23 09:36 12/19/23 11:40 Oxygen Flow Rate (L/min) 2 Oxygen Delivery Method Room Air Weight: 173 lb 1.006 oz Body Mass Index (BMI) 27.8 Intake & Output: Intake and Output for Last 24 Hours 12/18/23 12/19/23 12/20/23 23:59 23:59 23:59 Intake Total 1000 / 1000 Output Total 1725 / 1725 1600 / 1600 Balance -725 / -725 -1600 / -1600 Lab / Micro Data 12/20/23 07:30 12/20/23 07:30 Labs: Laboratory Results - last 24 hr 12/19/23 11:05: POC Glucose 130 H 12/19/23 16:10: POC Glucose 151 H 12/19/23 22:41: POC Glucose 188 H 12/20/23 06:01: POC Glucose 100 12/20/23 07:30: WBC 4.7, RBC 2.39 L, Hgb 7.2 L, Hct 22.9 L, MCV 95.8, MCH 30.1, MCHC 31.4 L, RDW Std Deviation 53.8 H, RDW Coeff of Fior 15.6 H, Plt Count 146 L, MPV 11.2, Immature Gran % (Auto) 0.400, Neut % (Auto) 58.0, Lymph % (Auto) 23.4, [place] % (Auto) 11.9 H, Eos % (Auto) 5.7 H, Baso % (Auto) 0.6, Absolute Neuts (auto) 2.7, Absolute Lymphs (auto) 1.10, Nucleated RBC % 0, Sodium 139, Potassium 4.1, Chloride 106, Carbon Dioxide 24.0, Anion Gap 9, BUN 88 H, Creatinine 6.33 H, Estim Creat Clear Calc 10.24, Est GFR (MDRD) Af Amer 9 L, Est GFR (MDRD) Non-Af 7 L, BUN/Creatinine Ratio 13.9, Glucose 106, Calcium 7.6 L Micro: Microbiology 12/16/23 14:24 Blood Culture (Wb) - Anticubital Right Blood Culture - Final Staphylococcus aureus 12/16/23 14:45 Blood Culture (Wb) - Left Hand Blood Culture - Final Staphylococcus aureus 12/16/23 14:33 Urine, Catheterized Urine Culture - Final Culture exhibits no growth. 12/16/23 14:24 Mucosa - Nasopharyngeal SARS-CoV-2, Influenza & RSV (PCR) - Final Physical Exam Const alert, oriented x3 and no apparent distress Constitutional Narrative: frail Orientation / Consciousness: lethargic HEENT normocephalic, head/scalp atraumatic and moist oral mucous membranes Eyes PERRL and EOMs intact bilaterally Neck no lymphadenopathy and supple Lymph Lymphatic: no lymphadenopathy noted and no lymphedema noted Resp Resp Narrative: diinished breath sounds bibasally, no wheezes or crackles. on room air. Cardio regular rate, regular rhythm, S1 normal heart sound, S2 normal heart sound and no murmurs GI normal to inspection, nondistended, normoactive bowel sounds, soft to palpation, non-tender and non-distended Extremity normal capillary refill, no clubbing, cyanosis or edema and no calf tenderness Extremity Narrative: has dialysis catheter in chest General Extremity: no tenderness to palpation of joints or extremities Skin General Skin Exam: no breakdown Neuro CN's II-XII intact bilaterally, no focal motor deficits and no sensory deficits noted Neuro Narrative: l Motor Exam: strength 5/5 throughout and general weakness Psych thought process normal, cooperative and affect normal Appearance: appropriate Mood & Affect: flat affect Assessment & Plan Assessment/Plan (1) UTI (urinary tract infection): (2) ESRD on hemodialysis: PLAN: Plan #Acute encephalopathy, likely due to UTI and Staph bacteremia more alert today blood cultures positive for staph aureus ID on board on IV vancomycin and meropenem 2D echo showed no evidence of vegetation. ID recommending removal of catheter; dialysis catheter removed yesterday. #Subacute ischemic CVA Found to have new left-sided weakness and slurred speech and some facial droop. CT of the brain done as stated above showed right ischemic infarct in the right MCA territory which appears to be subacute. This was new compared to previous CT of the brain from October 2023. Patient not a tPA candidate. Per neurology, to hold off on statin aspirin or Plavix due to concerns about infective endocarditis. Patient to have HONG tomorrow. She did have TTE a few days ago which showed no evidence of infective endocarditis. neurology on board PT/OT on board fall precautions #Staph bacteremia: as above #Acute on chronic anemia of chronic disease Hb today is 7.2. she was transfused with one unit of PRBC likely due to ESRD #Thrombocytopenia platelets are 146 today; platelets were 141 2 days ago. Improving. Will monitor #ESRD. on HD. Nephrology on board. On dialysis MWF. # Hyperlipidemia: On statin #Type 2 diabetes mellitus: On Lantus 5 units daily. Insulin Sliding scale. Accu-Cheks ACHS. #Hypothyroidism: On Synthroid. #Depression: olanzapine DVT prophylaxis; SCDs o/a of acute on chronic anemia Charges/Coding Visit Charges Inpatient E&M: 59571 Subs Hosp L3
--- NOTE | 2023-12-20 11:20 | CT_ITS ---
STUDY: CT BRAIN WITHOUT CONTRAST REASON FOR EXAM: Female, 58 years old. Mental status change RADIATION DOSAGE (If Supplied By Facility): CTDIvol = ( 44.99 ) mGy, DLP = ( 796.11 ) mGycm TECHNIQUE: Transaxial CT imaging of the brain was performed without administration of intravenous contrast material. Individualized dose optimization techniques were used for this CT. COMPARISON: No previous studies are available for comparison, if one becomes available, an addendum will be performed. FINDINGS: There is abnormal hypoattenuation in the right MCA territory with disruption of the sulci and gyral pattern and some localized mass effect. There is no right to left midline shift or acute hemorrhage. There is also evidence of venous infarcts in the right occipital lobe and left temporal lobe. Previous infarcts including the one described above likely due to embolic phenomenon. Ventricles and cisterns are patent and normal for age. No skull fracture or scalp hematoma. Posterior fossa structures are unremarkable, no evidence of brainstem claudia or cerebellar abnormality CT/STROKE Brain/Head without Cont IMPRESSION: Abnormal hypoattenuation within the right MCA territory with disruption of the sulci and gyral pattern. Findings are consistent with recent infarct. No acute hemorrhage. There are also no recent studies available for comparison Evidence of previous infarcts in the left temporal and right occipital lobes suggesting patient may have underlying embolic issues Ventricles and cisterns normal for age No evidence of posterior fossa abnormality Findings called to patient''s nurse prior to dictation N.B. : The above Results were Read Back by Garrick Lopez MD to KELSIE Christiansen, and understanding confirmed on 12/20/2023 12:01:44 (ET). Electronically Signed: Garrick Lopez MD at 12:07 EDT ,
--- NOTE | 2023-12-20 11:26 | CT_ITS ---
STUDY: CTA HEAD AND NECK WITH CONTRAST REASON FOR EXAM: Female, 58 years old. CVA RADIATION DOSAGE (If Supplied By Facility): CTDIvol = ( 29.40 ) mGy, DLP = ( 773.24 ) mGycm TECHNIQUE: CT angiography was performed with a multi-detector CT scanner. Data acquisition was obtained from the skull base through the vertex following intravenous administration of IV 100mL Isovue-370. MIP images were reconstructed from the axial data set. Post-processing of the angiographic images was performed, with multiplanar reformation and 3D reconstruction. Individualized dose optimization techniques were used for this CT. COMPARISON: No relevant priors. FINDINGS: Normal bilateral petrous carotid arteries. There is calcified plaque formation of the right cavernous carotid artery, without a cross-sectional luminal stenosis. There is calcified plaque formation of the left cavernous carotid artery, without a cross-sectional luminal stenosis. Normal right A1 segments of the anterior cerebral artery. Normal left A1 segments of the anterior cerebral artery. Normal intact anterior communicating artery (ACOM). Normal bilateral A2 segments of the anterior cerebral arteries. There is irregularity of the right M1 and M2 branches with minimal luminal narrowing, suggesting atherosclerotic plaque formation, without an occlusion. Questionable occlusion of the distal right M2 segment stenosis. There is irregularity of the left M1 and M2 branches with minimal luminal narrowing, suggesting atherosclerotic plaque formation, without an occlusion. Normal right posterior communicating artery (PCOM). Normal left posterior communicating artery (PCOM). Normal bilateral vertebral arteries. Normal basilar artery with a normal basilar bifurcation. The visualized bilateral superior cerebellar (SCA) arteries are normal. Normal bilateral P1, P2 and visualized P3 segments of the posterior cerebral arteries. There is no demonstrated aneurysm of the [place] of [place]. Heterogeneous appearance of the left lobe of the thyroid gland. AORTIC ARCH: There is atherosclerotic calcific plaque formation of the aortic arch and great vessels arising from the aortic arch, without a hemodynamically significant stenosis. There is a bovine origin of the great vessels with a common origin of the brachiocephalic and left common carotid artery. Normal origin of the left subclavian artery. Calcific plaque at the origin of the left subclavian artery. RIGHT CAROTID ARTERIES: Normal right common carotid artery (CCA). Normal right common carotid bulb. There is moderate atherosclerotic plaque formation of the origin of the right internal carotid artery with an estimated stenosis of 50-69% stenosis. Normal visualized cervical portion of the right internal carotid artery. Normal origin of the right external carotid artery (ECA). LEFT CAROTID ARTERIES: Normal left common carotid artery (CCA). Normal left common carotid bulb. There is mild atherosclerotic plaque formation of the origin of the left internal carotid artery with less than 50% cross sectional diameter stenosis. Normal visualized cervical portion of the left internal carotid artery. Normal origin of the left external carotid artery (ECA). VERTEBRAL ARTERIES: Normal bilateral vertebral arteries. CT/STROKE CTA Head AND Neck W/Con IMPRESSION: Atherosclerotic irregularity of the right and left M2 segments of the middle cerebral arteries bilaterally. Findings suggestive an occlusion in the distal branches of the right M2 segment. Calcific plaque at the origin of the right internal carotid artery causing between 50 and 69% stenosis as well as less than 50% narrowing at the origin of the left internal carotid artery. Electronically Signed: Ronnie Saavedra MD at 8:44 EDT ,
[2023-12-20 11:35] LABS: Bedside Glucose 126 mg/dL (74-106)
[2023-12-20] MEDS: Cefepime HCl 1 GM in 0.9% Normal Saline (50mL MB+) 50 ML IV (15:00)
--- NOTE | 2023-12-20 15:33 | CHAPLAIN ---
Type of Pastoral Visit ___ Initial Visit ___ Follow-up Visit ___ On-call Visit ___ General Patient Visit ___ Spiritual Assessment ___ Family Conference ___ Bereavement _x__ Rapid Response ___ Code Blue ___ Other (describe below) Pastoral Care Referral From ___ Patient ___ Family ___ Nurse ___ Physician ___ Correction Worker ___ Curriculum Development Specialist _x__ Other (describe below) Sacrament/Intervention ___ Active listening ___ Anointing ___ Restorationism ___ Bereavement ___ Communion ___ Stacey exploration ___ ___ Life review ___ Prayer ___ Reconciliation ___ Sacrament of Sick _x__ Supportive presence ___ Wedding ___ Other (describe below) Pastoral Comments responded to stroke alert for this patient; pt was being taken for a CT; niece is in the room as is two representatives from a home health agency; niece would like assistance from and so this stainless steel finisher notifies SW of the request; offer of presence and support given to the niece who states that she is not in need of anything else at this time
[2023-12-20] MEDS: Ferrous Sulfate 325 MG Tablet PO (16:46)
[2023-12-20] MEDS: OLANZapine 5 MG/TAB TAB.RAPDIS PO (21:25)
[2023-12-20 21:42] LABS: Bedside Glucose 118 mg/dL (74-106)
[2023-12-21] VITALS (17 sets, daily range): BP systolic 101–140; BP diastolic 56–80; PULSE 63–79; RESP 14–18; TEMP 36.3–36.9; O2SAT 94–99; BMI 27.8
[2023-12-21] MEDS: Acetaminophen 325 MG Tablet 650 MG PO (00:04)
[2023-12-21] MEDS: oxyCODONE 5 MG Tablet PO ×2 (00:04→22:55)
[2023-12-21 00:23] LABS: Bedside Glucose 145 mg/dL (74-106)
[2023-12-21 06:33] LABS: Bedside Glucose 104 mg/dL (74-106)
[2023-12-21 07:05] LABS: Absolute Neutrophil Count 3.3 X10^3/uL (2.0-7.7); Basophil# 0.03 X10^3/uL; Basophil% 0.5 % (0-1); Eosinophils% 5.4 % (0-5); Hematocrit 23.7 % (37-47); Hemoglobin 7.6 g/dL (12.0-15.0); Lymphocyte % 23.4 % (19-41); Mean Corp Hgb Conc 32.1 g/dL (32-36); Mean Corpuscular Hgb 30.5 pg (27.0-32.0); Mean Corpuscular Volume 95.2 fL (81-99); Mean Platelet Vol. 11.4 fl (6.2-12.0); Monocyte# 0.54 X10^3/uL; Monocyte% 9.7 % (0-10); NRBC Flagged by Analyzer 0 % (0-5); Neutrophil # 3.32 X10^3/uL (2.7-7.7); Neutrophil % 59.7 % (47-70); Platelet Count 165 K/mm3 (150-450); RBC Distribution Width CV 15.5 % (11.6-14.6); RBC Distribution Width SD 53.1 fl (35.1-43.9); Red Blood Count 2.49 M/mm3 (4.2-5.4); White Blood Count 5.6 K/mm3 (4.4-11.0)
[2023-12-21 07:21] LABS: Cholesterol 130 mg/dL (200); High Density Lipoprotein 21 mg/dL; Triglycerides 266 mg/dL; Very Low Density Lipoprotein 53 mg/dL (5-40)
[2023-12-21 07:37] LABS: Anion Gap 11 (5-15); BUN 104 mg/dL (7-18); BUN/Creat Ratio 14.2 RATIO (10-20); Calcium,Total 7.3 mg/dL (8.5-10.1); Chloride 102 mmol/L (98-107); Creatinine, Serum 7.31 mg/dL (0.55-1.02); EST Glomerular Filtration Rate 6 mL/min (>60); Est Glom Filt Rate - Afr Amer 7 mL/min (>60); Estimated Creatinine Clearance 8.87 ml/min; Glucose 102 mg/dL (74-106); Potassium 4.7 mmol/L (3.5-5.1); Sodium Level 135 mmol/L (136-145)
[2023-12-21] MEDS: Insulin Glargine-YFGN 100 UNIT/ML Pen 20 UNIT SC (08:37)
[2023-12-21] MEDS: Paroxetine 20 MG Tablet PO (08:37)
[2023-12-21] MEDS: Atorvastatin Calcium 20 MG Tablet PO (08:38)
[2023-12-21] MEDS: Calcium Acetate 667 MG Capsule PO ×3 (08:38→18:00)
[2023-12-21] MEDS: Carvedilol 12.5 MG Tablet PO ×2 (08:38→18:00)
[2023-12-21] MEDS: Calcitriol 0.25 MCG Capsule 0.5 MCG PO (08:38)
[2023-12-21] MEDS: Folic Acid 1 MG Tablet PO (08:38)
[2023-12-21] MEDS: Pramipexole Di-HCl 1 MG Tablet 1.5 MG PO ×2 (08:38→21:26)
[2023-12-21] MEDS: hydrALAZINE 25 MG Tablet PO ×3 (08:38→18:00)
[2023-12-21] MEDS: buPROPion (XL) 150 MG TABLET.XL PO (08:39)
[2023-12-21] MEDS: amLODIPine 5 MG Tablet PO (08:39)
[2023-12-21] MEDS: Pantoprazole Sodium 40 MG Tablet PO ×2 (08:39→18:00)
[2023-12-21] MEDS: Ascorbic Acid 500 MG Tablet PO ×2 (08:39→21:26)
[2023-12-21] MEDS: Clopidogrel Bisulfate 75 MG Tablet PO (08:39)
[2023-12-21] MEDS: Cefepime HCl 1 GM in 0.9% Normal Saline (50mL MB+) 50 ML IV (08:40)
--- NOTE | 2023-12-21 09:00 | ECHOTEE_ITS ---
Reason For Study: Murmur Medication HONG probe 6VT-D (SN [id number]) passed without difficulty. No complications were noted. Cetacaine Topical [place] given X3 orally. Versed 1 mg given slow IVP. Fentanyl 50 mcg given slow IVP. Left Ventricle Normal left ventricle. Left ventricular systolic function is normal. The estimated ejection fraction is 65 %. No regional wall motion abnormalities noted. Right Ventricle Normal RV size. Normal systolic function. Atria Normal atrial septum. Normal left atrium. The left atrium is mildly enlarged. No thrombus is detected in the left atrial appendage. Normal right atrium. Mitral Valve Normal mitral valve. Mild (1+) eccentric mitral valve insufficiency. Tricuspid Valve Normal tricuspid valve. Aortic Valve Normal aortic valve. Trisinus/trileaflet aortic valve. Pulmonic Valve Normal pulmonic valve. Vessels Normal aortic root. Pericardium No pericardial effusion. ECHO/Echo Transesophageal (HONG) Interpretation Summary Normal left ventricle. Left ventricular systolic function is normal. The estimated ejection fraction is 65 %. No mass or vegetation noted. Ordering Physician: Kike Tello Referring Physician: Raúl Eric Performed By: Mary Mitchell, ELENI, RVT
[2023-12-21] MEDS: Ondansetron 4 MG/2 ML Vial IV (09:05)
--- NOTE | 2023-12-21 09:29 | PCM.PN.SRG ---
Subjective Subjective The patient had a stroke alert yesterday. She was found to have occlusion of the right MCA. She also has stenosis of the right carotid. I would be able to place a new tunneled left temporary dialysis catheter tomorrow and I have tentatively scheduled her for tomorrow afternoon. As long as she is okay by the other teams to go surgery I will plan for that tomorrow although she is apprehensive and would like to not have another temporary dialysis catheter but her creatinine is 6 today. I discussed the risks of the procedure such as bleeding and infection and pneumothorax. Patient is reluctant but in agreement. She would really like to try her fistula instead but nephrology is requesting new catheter. Juan Alberto Mcgregor MD Pager: [facility] [address] [place] [address] [address] [place] [address] Office: Objective Data Objective Data Vital Signs: Vital Signs Temp Pulse Resp BP Pulse Ox O2 Del Method O2 Flow Rate 98 F 67 17 140/79 H 95 Room Air 2 12/21/23 09:07 12/21/23 09:07 12/21/23 09:07 12/21/23 09:07 12/21/23 09:07 12/21/23 09:07 12/21/23 07:38 Oxygen Flow Rate (L/min) 2 Oxygen Delivery Method Room Air Weight: 173 lb 1.006 oz Body Mass Index (BMI) 27.8 Intake & Output: Intake and Output for Last 24 Hours 12/19/23 12/20/23 12/21/23 23:59 23:59 23:59 Intake Total 1000 / 1000 50 / 50 Output Total 1725 / 1725 1850 / 1850 50 / 50 Balance -725 / -725 -1800 / -1800 -50 / -50 Lab / Micro Data 12/21/23 06:05 12/21/23 06:05 Labs: Laboratory Results - last 24 hr 12/20/23 11:17: POC Glucose 126 H 12/20/23 16:34: POC Glucose 118 H 12/20/23 21:20: POC Glucose 145 H 12/21/23 06:05: WBC 5.6, RBC 2.49 L, Hgb 7.6 L, Hct 23.7 L, MCV 95.2, MCH 30.5, MCHC 32.1, RDW Std Deviation 53.1 H, RDW Coeff of Fior 15.5 H, Plt Count 165, MPV 11.4, Immature Gran % (Auto) 1.300 H, Neut % (Auto) 59.7, Lymph % (Auto) 23.4, [place] % (Auto) 9.7, Eos % (Auto) 5.4 H, Baso % (Auto) 0.5, Absolute Neuts (auto) 3.3, Absolute Lymphs (auto) 1.30, Nucleated RBC % 0, Sodium 135 L, Potassium 4.7, Chloride 102, Carbon Dioxide 22.0, Anion Gap 11, BUN 104 H*, Creatinine 7.31 H, Estim Creat Clear Calc 8.87, Est GFR (MDRD) Af Amer 7 L, Est GFR (MDRD) Non-Af 6 L, BUN/Creatinine Ratio 14.2, Glucose 102, Calcium 7.3 L, Triglycerides 266 H, Cholesterol 130, LDL Cholesterol 56, VLDL Cholesterol 53 H, HDL Cholesterol 21 L 12/21/23 06:14: POC Glucose 104 Micro: Microbiology 12/16/23 14:24 Blood Culture (Wb) - Anticubital Right Blood Culture - Final Staphylococcus aureus 12/16/23 14:45 Blood Culture (Wb) - Left Hand Blood Culture - Final Staphylococcus aureus 12/16/23 14:33 Urine, Catheterized Urine Culture - Final Culture exhibits no growth. 12/16/23 14:24 Mucosa - Nasopharyngeal SARS-CoV-2, Influenza & RSV (PCR) - Final Radiography Diagnostic Testing: Radiology Impression Brain CT 12/20/23 11:20 IMPRESSION: Abnormal hypoattenuation within the right MCA territory with disruption of the sulci and gyral pattern. Findings are consistent with recent infarct. No acute hemorrhage. There are also no recent studies available for comparison Evidence of previous infarcts in the left temporal and right occipital lobes suggesting patient may have underlying embolic issues Ventricles and cisterns normal for age No evidence of posterior fossa abnormality Findings called to patient''s nurse prior to dictation N.B. : The above Results were Read Back by Garrick Lopez MD to KELSIE Christiansen, and understanding confirmed on 12/20/2023 12:01:44 (ET). Electronically Signed: Garrick Lopez MD at 12:07 EDT , ADDENDUM: 12/20/23 1432 IMPRESSION: Abnormal hypoattenuation within the right MCA territory with disruption of the sulci and gyral pattern. Findings are consistent with recent infarct. No acute hemorrhage. There are also no recent studies available for comparison Evidence of previous infarcts in the left temporal and right occipital lobes suggesting patient may have underlying embolic issues Ventricles and cisterns normal for age No evidence of posterior fossa abnormality Findings called to patient''s nurse prior to dictation N.B. : The above Results were Read Back by Garrick Lopez MD to KELSIE Christiansen, and understanding confirmed on 12/20/2023 12:01:44 (ET). Electronically Signed: Garrick Lopez MD at 12:07 EDT , ADDENDUM: 12/20/23 1432 IMPRESSION: Abnormal hypoattenuation within the right MCA territory with disruption of the sulci and gyral pattern. Findings are consistent with recent infarct. No acute hemorrhage. There are also no recent studies available for comparison Evidence of previous infarcts in the left temporal and right occipital lobes suggesting patient may have underlying embolic issues Ventricles and cisterns normal for age No evidence of posterior fossa abnormality Findings called to patient''s nurse prior to dictation N.B. : The above Results were Read Back by Garrick Lopez MD to KELSIE Christiansen, and understanding confirmed on 12/20/2023 12:01:44 (ET). Electronically Signed: Garrick Lopez MD at 12:07 EDT , ADDENDUM: 12/20/23 1502 IMPRESSION: undefined ADDENDUM: 12/20/23 1502 IMPRESSION: undefined Head/Neck CTA 12/20/23 11:26 IMPRESSION: Atherosclerotic irregularity of the right and left M2 segments of the middle cerebral arteries bilaterally. Findings suggestive an occlusion in the distal branches of the right M2 segment. Calcific plaque at the origin of the right internal carotid artery causing between 50 and 69% stenosis as well as less than 50% narrowing at the origin of the left internal carotid artery. Electronically Signed: Ronnie Saavedra MD at 8:44 EDT ,
[2023-12-21 10:32] LABS: Hemoglobin A1c 7.7 % (3.8-5.6)
[2023-12-21 11:03] LABS: Bedside Glucose 88 mg/dL (74-106)
--- NOTE | 2023-12-21 11:11 | PN.RENAL_ITS ---
Subjective Subjective Events noted. She had new onset left-sided weakness, CT head showed massive infarct. She also has 2 other focus of infarct which are subacute. 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 Scheduled for HONG today. Objective Data Objective Data Vital Signs: Vital Signs Temp Pulse Resp BP Pulse Ox O2 Del Method O2 Flow Rate 98 F 67 17 140/79 H 95 Nasal Cannula 2 12/21/23 09:07 12/21/23 09:07 12/21/23 09:07 12/21/23 09:07 12/21/23 09:07 12/21/23 10:00 12/21/23 10:54 Oxygen Flow Rate (L/min) 2 Oxygen Delivery Method Nasal Cannula Weight: 78.5 kg Body Mass Index (BMI) 27.8 Intake & Output: Intake and Output for Last 24 Hours 12/19/23 12/20/23 12/21/23 23:59 23:59 23:59 Intake Total 1000 / 1000 50 / 50 50 / 50 Output Total 1725 / 1725 1850 / 1850 50 / 50 Balance -725 / -725 -1800 / -1800 0 / 0 Lab / Micro Data 12/21/23 06:05 12/21/23 06:05 Labs: Laboratory Results - last 24 hr 12/20/23 11:17: POC Glucose 126 H 12/20/23 16:34: POC Glucose 118 H 12/20/23 21:20: POC Glucose 145 H 12/21/23 06:05: WBC 5.6, RBC 2.49 L, Hgb 7.6 L, Hct 23.7 L, MCV 95.2, MCH 30.5, MCHC 32.1, RDW Std Deviation 53.1 H, RDW Coeff of Fior 15.5 H, Plt Count 165, MPV 11.4, Immature Gran % (Auto) 1.300 H, Neut % (Auto) 59.7, Lymph % (Auto) 23.4, [place] % (Auto) 9.7, Eos % (Auto) 5.4 H, Baso % (Auto) 0.5, Absolute Neuts (auto) 3.3, Absolute Lymphs (auto) 1.30, Nucleated RBC % 0, Sodium 135 L, Potassium 4.7, Chloride 102, Carbon Dioxide 22.0, Anion Gap 11, BUN 104 H*, Creatinine 7.31 H, Estim Creat Clear Calc 8.87, Est GFR (MDRD) Af Amer 7 L, Est GFR (MDRD) Non-Af 6 L, BUN/Creatinine Ratio 14.2, Glucose 102, Hemoglobin A1c 7.7 H, Calcium 7.3 L, Triglycerides 266 H, Cholesterol 130, LDL Cholesterol 56, VLDL Cholesterol 53 H, HDL Cholesterol 21 L 12/21/23 06:14: POC Glucose 104 12/21/23 10:45: POC Glucose 88 Micro: Microbiology 12/16/23 14:24 Blood Culture (Wb) - Anticubital Right Blood Culture - Final Staphylococcus aureus 12/16/23 14:45 Blood Culture (Wb) - Left Hand Blood Culture - Final Staphylococcus aureus 12/16/23 14:33 Urine, Catheterized Urine Culture - Final Culture exhibits no growth. 12/16/23 14:24 Mucosa - Nasopharyngeal SARS-CoV-2, Influenza & RSV (PCR) - Final Radiography Diagnostic Testing: Radiology Impression Brain CT 12/20/23 11:20 IMPRESSION: Abnormal hypoattenuation within the right MCA territory with disruption of the sulci and gyral pattern. Findings are consistent with recent infarct. No acute hemorrhage. There are also no recent studies available for comparison Evidence of previous infarcts in the left temporal and right occipital lobes suggesting patient may have underlying embolic issues Ventricles and cisterns normal for age No evidence of posterior fossa abnormality Findings called to patient''s nurse prior to dictation N.B. : The above Results were Read Back by Garrick Lopez MD to KELSIE Christiansen, and understanding confirmed on 12/20/2023 12:01:44 (ET). Electronically Signed: Garrick Lpoez MD at 12:07 EDT , ADDENDUM: 12/20/23 1432 IMPRESSION: Abnormal hypoattenuation within the right MCA territory with disruption of the sulci and gyral pattern. Findings are consistent with recent infarct. No acute hemorrhage. There are also no recent studies available for comparison Evidence of previous infarcts in the left temporal and right occipital lobes suggesting patient may have underlying embolic issues Ventricles and cisterns normal for age No evidence of posterior fossa abnormality Findings called to patient''s nurse prior to dictation N.B. : The above Results were Read Back by Garrick Lopez MD to KELSIE Christiansen, and understanding confirmed on 12/20/2023 12:01:44 (ET). Electronically Signed: Garrick Lopez MD at 12:07 EDT , ADDENDUM: 12/20/23 1432 IMPRESSION: Abnormal hypoattenuation within the right MCA territory with disruption of the sulci and gyral pattern. Findings are consistent with recent infarct. No acute hemorrhage. There are also no recent studies available for comparison Evidence of previous infarcts in the left temporal and right occipital lobes suggesting patient may have underlying embolic issues Ventricles and cisterns normal for age No evidence of posterior fossa abnormality Findings called to patient''s nurse prior to dictation N.B. : The above Results were Read Back by Garrick Lopez MD to KELSIE Christiansen, and understanding confirmed on 12/20/2023 12:01:44 (ET). Electronically Signed: Garrick Lopez MD at 12:07 EDT , ADDENDUM: 12/20/23 1502 IMPRESSION: undefined ADDENDUM: 12/20/23 1502 IMPRESSION: undefined Head/Neck CTA 12/20/23 11:26 IMPRESSION: Atherosclerotic irregularity of the right and left M2 segments of the middle cerebral arteries bilaterally. Findings suggestive an occlusion in the distal branches of the right M2 segment. Calcific plaque at the origin of the right internal carotid artery causing between 50 and 69% stenosis as well as less than 50% narrowing at the origin of the left internal carotid artery. Electronically Signed: Ronnie Saavedra MD at 8:44 EDT , Physical Exam Narrative Alert oriented x 3, no apparent distress S1, S2, RRR Lung sounds clear Abdomen soft, nontender No pitting edema Left mid arm AV fistula positive thrill and bruit Assessment & Plan Assessment/Plan (1) ESRD on hemodialysis: (2) Encephalopathy: (3) UTI (urinary tract infection): PLAN: Plan - ESRD on hemodialysis Tuesday at [facility] followed by Dr. Flynn. Dialysis tomorrow -Acute metabolic encephalopathy felt to be secondary to Staph aureus bacterem ia, New onset stroke Staph bacteremia. Right IJ dialysis catheter removed. She has a left arm br achiocephalic fistula but it appears fairly deep. She says the dialysis unit could not get fistula because it was too deep. She says that the surgeon in [place] placed the fistula but was not remember the name. She says she is in the process of switching to the peritoneal dialysis. Repeat blood cultures pending finalization. Will need a new dialysis catheter. Tentatively planned for tomorrow as long as cultures are negative. -Anemia of chronic disease; s/p PRBC
--- NOTE | 2023-12-21 12:43 | CASEMGMT ---
KELSIE IRELAND updated by ID that patient will need IV ATBs with HD treatments at discharge. KELSIE IRELAND called [facility] to inquired patient's chair time of MWF 1100. Per Fdielina at [facility], they are able to complete IV ATBs but patient is required to provide antibiotics at treatment. Patient is currently a min assist x2 with therapy and would benefit from SNF at discharge. CM will continue to follow this patient and plan for a safe discharge.
--- NOTE | 2023-12-21 13:24 | PCM.PN.ID ---
Physical Exam Narrative New stroke yesterday. Just finished HONG today. No fever, feeling ok. Const no apparent distress Orientation / Consciousness: lethargic Resp normal air movement and clear to auscultation bilaterally Cardio regular rate and regular rhythm GI soft to palpation, non-tender and non-distended Skin no rashes or lesions noted ID ID: Route of nutrition/ use of supplements: [] Nutritional Intake: [] IV Site: [] [place] Catheter: [] Assessment & Plan Assessment/Plan (1) ESRD on hemodialysis: (2) MSSA bacteremia: PLAN: MSSA bacteremia with endocarditis and stroke, suspect from permacath. Line removed 12/19/23. Cont cefepime. HONG full report pending. Splinter hemorrhages seen on exam. Ok for permacath placement tomorrow if repeat bcx remain neg. Will follow, d/w surgery and primary team
--- NOTE | 2023-12-21 13:50 | PN_ITS ---
Subjective Subjective Patient seen and examined. She complained of feeling like she was forgetting most things. She could not tell me exactly where she felt she was forgetting. She is alert and oriented x 3. She has no other complaints and review of systems otherwise negative. Objective Data Objective Data Vital Signs: Vital Signs Temp Pulse Resp BP Pulse Ox O2 Del Method O2 Flow Rate 98 F 67 17 140/79 H 95 Nasal Cannula 2 12/21/23 09:07 12/21/23 09:07 12/21/23 09:07 12/21/23 09:07 12/21/23 09:07 12/21/23 10:00 12/21/23 10:54 Oxygen Flow Rate (L/min) 2 Oxygen Delivery Method Nasal Cannula Weight: 173 lb 1.006 oz Body Mass Index (BMI) 27.8 Intake & Output: Intake and Output for Last 24 Hours 12/19/23 12/20/23 12/21/23 23:59 23:59 23:59 Intake Total 1000 / 1000 50 / 50 50 / 50 Output Total 1725 / 1725 1850 / 1850 50 / 50 Balance -725 / -725 -1800 / -1800 0 / 0 Lab / Micro Data 12/21/23 06:05 12/21/23 06:05 Labs: Laboratory Results - last 24 hr 12/20/23 16:34: POC Glucose 118 H 12/20/23 21:20: POC Glucose 145 H 12/21/23 06:05: WBC 5.6, RBC 2.49 L, Hgb 7.6 L, Hct 23.7 L, MCV 95.2, MCH 30.5, MCHC 32.1, RDW Std Deviation 53.1 H, RDW Coeff of Fior 15.5 H, Plt Count 165, MPV 11.4, Immature Gran % (Auto) 1.300 H, Neut % (Auto) 59.7, Lymph % (Auto) 23.4, [place] % (Auto) 9.7, Eos % (Auto) 5.4 H, Baso % (Auto) 0.5, Absolute Neuts (auto) 3.3, Absolute Lymphs (auto) 1.30, Nucleated RBC % 0, Sodium 135 L, Potassium 4.7, Chloride 102, Carbon Dioxide 22.0, Anion Gap 11, BUN 104 H*, Creatinine 7.31 H, Estim Creat Clear Calc 8.87, Est GFR (MDRD) Af Amer 7 L, Est GFR (MDRD) Non-Af 6 L, BUN/Creatinine Ratio 14.2, Glucose 102, Hemoglobin A1c 7.7 H, Calcium 7.3 L, Triglycerides 266 H, Cholesterol 130, LDL Cholesterol 56, VLDL Cholesterol 53 H, HDL Cholesterol 21 L 12/21/23 06:14: POC Glucose 104 12/21/23 10:45: POC Glucose 88 Micro: Microbiology 12/19/23 08:44 Blood Culture (Wb) - Right Hand Blood Culture - Preliminary No growth in 48 hours. 12/19/23 09:00 Blood Culture (Wb) - Dialysis/Fistula Blood Culture - Preliminary No growth in 48 hours. 12/16/23 14:24 Blood Culture (Wb) - Anticubital Right Blood Culture - Final Staphylococcus aureus 12/16/23 14:45 Blood Culture (Wb) - Left Hand Blood Culture - Final Staphylococcus aureus 12/16/23 14:33 Urine, Catheterized Urine Culture - Final Culture exhibits no growth. 12/16/23 14:24 Mucosa - Nasopharyngeal SARS-CoV-2, Influenza & RSV (PCR) - Final Radiography Diagnostic Testing: Radiology Impression Brain CT 12/20/23 11:20 IMPRESSION: Abnormal hypoattenuation within the right MCA territory with disruption of the sulci and gyral pattern. Findings are consistent with recent infarct. No acute hemorrhage. There are also no recent studies available for comparison Evidence of previous infarcts in the left temporal and right occipital lobes suggesting patient may have underlying embolic issues Ventricles and cisterns normal for age No evidence of posterior fossa abnormality Findings called to patient''s nurse prior to dictation N.B. : The above Results were Read Back by Garrick Lopez MD to KELSIE Christiansen, and understanding confirmed on 12/20/2023 12:01:44 (ET). Electronically Signed: Garrick Lopez MD at 12:07 EDT , ADDENDUM: 12/20/23 1432 IMPRESSION: Abnormal hypoattenuation within the right MCA territory with disruption of the sulci and gyral pattern. Findings are consistent with recent infarct. No acute hemorrhage. There are also no recent studies available for comparison Evidence of previous infarcts in the left temporal and right occipital lobes suggesting patient may have underlying embolic issues Ventricles and cisterns normal for age No evidence of posterior fossa abnormality Findings called to patient''s nurse prior to dictation N.B. : The above Results were Read Back by Garrick Lopez MD to KELSIE Christiansen, and understanding confirmed on 12/20/2023 12:01:44 (ET). Electronically Signed: Garrick Lopez MD at 12:07 EDT , ADDENDUM: 12/20/23 1432 IMPRESSION: Abnormal hypoattenuation within the right MCA territory with disruption of the sulci and gyral pattern. Findings are consistent with recent infarct. No acute hemorrhage. There are also no recent studies available for comparison Evidence of previous infarcts in the left temporal and right occipital lobes suggesting patient may have underlying embolic issues Ventricles and cisterns normal for age No evidence of posterior fossa abnormality Findings called to patient''s nurse prior to dictation N.B. : The above Results were Read Back by Garrick Lopez MD to KELSIE Christiansen, and understanding confirmed on 12/20/2023 12:01:44 (ET). Electronically Signed: Garrick Lopez MD at 12:07 EDT , ADDENDUM: 12/20/23 1502 IMPRESSION: undefined ADDENDUM: 12/20/23 1502 IMPRESSION: undefined Head/Neck CTA 12/20/23 11:26 IMPRESSION: Atherosclerotic irregularity of the right and left M2 segments of the middle cerebral arteries bilaterally. Findings suggestive an occlusion in the distal branches of the right M2 segment. Calcific plaque at the origin of the right internal carotid artery causing between 50 and 69% stenosis as well as less than 50% narrowing at the origin of the left internal carotid artery. Electronically Signed: Ronnie Saavedra MD at 8:44 EDT , Physical Exam Const alert, oriented x3 and no apparent distress Constitutional Narrative: frail General Appearance: cooperative HEENT normocephalic, head/scalp atraumatic and moist oral mucous membranes Eyes PERRL and EOMs intact bilaterally Neck no lymphadenopathy and supple Lymph Lymphatic: no lymphadenopathy noted and no lymphedema noted Resp Resp Narrative: diinished breath sounds bibasally, no wheezes or crackles. on room air. Cardio regular rate, regular rhythm, S1 normal heart sound, S2 normal heart sound and no murmurs GI normal to inspection, nondistended, normoactive bowel sounds, soft to palpation, non-tender and non-distended Extremity normal capillary refill, no clubbing, cyanosis or edema and no calf tenderness General Extremity: no tenderness to palpation of joints or extremities Skin Skin Narrative: intact dressing over dialysis catheter site General Skin Exam: no breakdown Neuro CN's II-XII intact bilaterally, no focal motor deficits and no sensory deficits noted Motor Exam: strength 5/5 throughout and general weakness Psych thought process normal Appearance: appropriate Mood & Affect: flat affect Assessment & Plan Assessment/Plan (1) UTI (urinary tract infection): (2) ESRD on hemodialysis: PLAN: Plan #Acute encephalopathy, likely due to UTI and Staph bacteremia * blood cultures positive for staph aureus * ID on board * on IV vancomycin and cefepime, per ID * 2D echo showed no evidence of vegetation. * dialysis catheter removed * HONG also negative for any evidence of a stroke * #Subacute ischemic CVA * Found to have new left-sided weakness and slurred speech and some facial droop. CT of the brain done as stated above showed right ischemic infarct in the right MCA territory which appears to be subacute. This was new compared to previous CT of the brain from October 2023. * HONG done today negative for stroke. * On Plavix already. Will hold Plavix today as she is having the dialysis catheter inserted tomorrow then will resume. * Will get further neurology recommendations in light of the HONG being negative. * 2D echo as above. * neurology on board * PT/OT on board * fall precautions * #Staph bacteremia: as above #Acute on chronic anemia of chronic disease * Hb today is 7.6. she was transfused with one unit of PRBC during this admission. * likely due to ESRD * #Thrombocytopenia * resolved. Platelets are 165. * #ESRD. * on HD. Nephrology on board. * On dialysis MWF. Dialysis catheter removed due to staph bacteremia. * Temporary dialysis catheter tp be inserted by general surgery tomorrow * # Hyperlipidemia: On statin #Type 2 diabetes mellitus: On Lantus 5 units daily. Insulin Sliding scale. Accu-Cheks ACHS. #Hypothyroidism: On Synthroid. #Depression: olanzapine DVT prophylaxis; SCDs o/a of acute on chronic anemia Charges/Coding Visit Charges Inpatient E&M: 41784 Subs Hosp L2
[2023-12-21] MEDS: Isosorbide DN 20 MG Tablet PO ×2 (15:00→21:26)
[2023-12-21 17:10] LABS: Bedside Glucose 68 mg/dL (74-106)
[2023-12-21] MEDS: Juven (unflavored) Packet 1 PACKET PO (18:00)
[2023-12-21 18:05] LABS: Bedside Glucose 85 mg/dL (74-106)
[2023-12-21] MEDS: OLANZapine 5 MG/TAB TAB.RAPDIS PO (21:26)
[2023-12-21 21:48] LABS: Bedside Glucose 87 mg/dL (74-106)
[2023-12-22] VITALS (19 sets, daily range): BP systolic 93–215; BP diastolic 53–88; PULSE 60–711; RESP 14–18; TEMP 36.3–36.6; O2SAT 94–100; BMI 27.9; BMI 27.8; BMI 27.5
--- NOTE | 2023-12-22 05:45 | EKG12_ITS ---
Test Reason : PRE OP Blood Pressure : / mmHG Vent. Rate : 067 BPM Atrial Rate : 067 BPM P-R Int : 184 ms QRS Dur : 100 ms QT Int : 462 ms P-R-T Axes : 044 022 041 degrees QTc Int : 488 ms Normal sinus rhythm Minimal voltage criteria for LVH, may be normal variant ( Dave product ) Prolonged QT Abnormal ECG When compared with ECG of 21-DEC-2023 05:39, MANUAL COMPARISON REQUIRED, DATA IS UNCONFIRMED Confirmed by Kayden Elaine ([id number]), movie editor DAVID CARCAMO ([id number]) on 12/23/2023 2:18:24 PM Referred By: Confirmed By:Kayden Elaine
--- NOTE | 2023-12-22 05:55 | EKG12_ITS ---
Test Reason : AM EKG Blood Pressure : / mmHG Vent. Rate : 065 BPM Atrial Rate : 065 BPM P-R Int : 184 ms QRS Dur : 094 ms QT Int : 464 ms P-R-T Axes : 030 018 026 degrees QTc Int : 482 ms Normal sinus rhythm Prolonged QT Abnormal ECG When compared with ECG of 16-DEC-2023 13:57, Vent. rate has decreased BY 60 BPM T wave inversion no longer evident in Lateral leads Confirmed by OTTO DELVALLE, DOMINIQUE ([id number]), photography editor DAVID CARCAMO ([id number]) on 12/22/2023 6:25:32 AM Referred By: Confirmed By:DOMINIQUE MENJIVAR MD
[2023-12-22 06:36] LABS: Absolute Lymphocyte Count 0.97 X10^3/uL (0.83-4.51); Absolute Neutrophil Count 3.1 X10^3/uL (2.0-7.7); Basophil# 0.02 X10^3/uL; Basophil% 0.4 % (0-1); Eosinophil# 0.29 X10^3/uL; Eosinophils% 5.8 % (0-5); Hematocrit 22.2 % (37-47); Hemoglobin 7.1 g/dL (12.0-15.0); Lymphocyte # 0.97 X10^3/ul (0.83-4.51); Lymphocyte % 19.6 % (19-41); Mean Corpuscular Hgb 30.9 pg (27.0-32.0); Mean Corpuscular Volume 96.5 fL (81-99); Monocyte% 8.1 % (0-10); NRBC Flagged by Analyzer 0 % (0-5); Neutrophil # 3.13 X10^3/uL (2.7-7.7); Neutrophil % 63.1 % (47-70); Platelet Count 170 K/mm3 (150-450); RBC Distribution Width CV 15.6 % (11.6-14.6); RBC Distribution Width SD 54.9 fl (35.1-43.9)
[2023-12-22 06:53] LABS: Bedside Glucose 150 mg/dL (74-106)
[2023-12-22 07:28] LABS: Anion Gap 12 (5-15); BUN 117 mg/dL (7-18); BUN/Creat Ratio 13.9 RATIO (10-20); Calcium,Total 6.9 mg/dL (8.5-10.1); Chloride 103 mmol/L (98-107); Creatinine, Serum 8.44 mg/dL (0.55-1.02); EST Glomerular Filtration Rate 5 mL/min (>60); Est Glom Filt Rate - Afr Amer 6 mL/min (>60); Estimated Creatinine Clearance 7.68 ml/min; Glucose 157 mg/dL (74-106); Potassium 4.9 mmol/L (3.5-5.1); Sodium Level 136 mmol/L (136-145)
--- NOTE | 2023-12-22 07:34 | PN.SURG_ITS ---
Subjective Subjective Patient has no changes or issues overnight Objective Data Objective Data Vital Signs: Vital Signs Temp Pulse Resp BP Pulse Ox O2 Del Method O2 Flow Rate 97.9 F 73 18 124/61 H 94 Nasal Cannula 2 12/22/23 06:30 12/22/23 06:30 12/22/23 06:30 12/22/23 06:30 12/22/23 07:08 12/22/23 07:08 12/22/23 07:08 Oxygen Flow Rate (L/min) 2 Oxygen Delivery Method Nasal Cannula Weight: 173 lb 1.006 oz Body Mass Index (BMI) 27.9 Intake & Output: Intake and Output for Last 24 Hours 12/20/23 12/21/23 12/22/23 23:59 23:59 23:59 Intake Total 50 / 50 890 / 890 Output Total 1850 / 1850 1090 / 1090 250 / 250 Balance -1800 / -1800 -200 / -200 -250 / -250 Lab / Micro Data 12/22/23 05:50 12/22/23 05:50 Labs: Laboratory Results - last 24 hr 12/21/23 06:05: Sodium 135 L, Potassium 4.7, Chloride 102, Carbon Dioxide 22.0, Anion Gap 11, BUN 104 H*, Creatinine 7.31 H, Estim Creat Clear Calc 8.87, Est GFR (MDRD) Af Amer 7 L, Est GFR (MDRD) Non-Af 6 L, BUN/Creatinine Ratio 14.2, Glucose 102, Hemoglobin A1c 7.7 H, Calcium 7.3 L 12/21/23 10:45: POC Glucose 88 12/21/23 16:47: POC Glucose 68 L 12/21/23 17:47: POC Glucose 85 12/21/23 21:24: POC Glucose 87 12/22/23 05:50: WBC 5.0, RBC 2.30 L, Hgb 7.1 L, Hct 22.2 L, MCV 96.5, MCH 30.9, MCHC 32.0, RDW Std Deviation 54.9 H, RDW Coeff of Fior 15.6 H, Plt Count 170, MPV 11.0, Immature Gran % (Auto) 3.000 H, Neut % (Auto) 63.1, Lymph % (Auto) 19.6, [place] % (Auto) 8.1, Eos % (Auto) 5.8 H, Baso % (Auto) 0.4, Absolute Neuts (auto) 3.1, Absolute Lymphs (auto) 0.97, Nucleated RBC % 0, Sodium 136, Potassium 4.9, Chloride 103, Carbon Dioxide 21.0, Anion Gap 12, BUN 117 H*, Creatinine 8.44 H*, Estim Creat Clear Calc 7.68, Est GFR (MDRD) Af Amer 6 L, Est GFR (MDRD) Non-Af 5 L, BUN/Creatinine Ratio 13.9, Glucose 157 H, Calcium 6.9 L 12/22/23 06:20: POC Glucose 150 H Micro: Microbiology 12/19/23 08:44 Blood Culture (Wb) - Right Hand Blood Culture - Preliminary No growth in 48 hours. 12/19/23 09:00 Blood Culture (Wb) - Dialysis/Fistula Blood Culture - Preliminary No growth in 48 hours. 12/16/23 14:24 Blood Culture (Wb) - Anticubital Right Blood Culture - Final Staphylococcus aureus 12/16/23 14:45 Blood Culture (Wb) - Left Hand Blood Culture - Final Staphylococcus aureus 12/16/23 14:33 Urine, Catheterized Urine Culture - Final Culture exhibits no growth. 12/16/23 14:24 Mucosa - Nasopharyngeal SARS-CoV-2, Influenza & RSV (PCR) - Final Radiography Diagnostic Testing: Radiology Impression Brain CT 12/20/23 11:20 IMPRESSION: Abnormal hypoattenuation within the right MCA territory with disruption of the sulci and gyral pattern. Findings are consistent with recent infarct. No acute hemorrhage. There are also no recent studies available for comparison Evidence of previous infarcts in the left temporal and right occipital lobes suggesting patient may have underlying embolic issues Ventricles and cisterns normal for age No evidence of posterior fossa abnormality Findings called to patient''s nurse prior to dictation N.B. : The above Results were Read Back by Garrick Lopez MD to KELSIE Christiansen, and understanding confirmed on 12/20/2023 12:01:44 (ET). Electronically Signed: Garrick oLpez MD at 12:07 EDT , ADDENDUM: 12/20/23 1432 IMPRESSION: Abnormal hypoattenuation within the right MCA territory with disruption of the sulci and gyral pattern. Findings are consistent with recent infarct. No acute hemorrhage. There are also no recent studies available for comparison Evidence of previous infarcts in the left temporal and right occipital lobes suggesting patient may have underlying embolic issues Ventricles and cisterns normal for age No evidence of posterior fossa abnormality Findings called to patient''s nurse prior to dictation N.B. : The above Results were Read Back by Garrick Lopez MD to KELSIE Christiansen, and understanding confirmed on 12/20/2023 12:01:44 (ET). Electronically Signed: Garrick Lopez MD at 12:07 EDT , ADDENDUM: 12/20/23 1432 IMPRESSION: Abnormal hypoattenuation within the right MCA territory with disruption of the sulci and gyral pattern. Findings are consistent with recent infarct. No acute hemorrhage. There are also no recent studies available for comparison Evidence of previous infarcts in the left temporal and right occipital lobes suggesting patient may have underlying embolic issues Ventricles and cisterns normal for age No evidence of posterior fossa abnormality Findings called to patient''s nurse prior to dictation N.B. : The above Results were Read Back by Garrick Lopez MD to KELSIE Christiansen, and understanding confirmed on 12/20/2023 12:01:44 (ET). Electronically Signed: Garrcik Lopez MD at 12:07 EDT , ADDENDUM: 12/20/23 1502 IMPRESSION: undefined ADDENDUM: 12/20/23 1502 IMPRESSION: undefined ADDENDUM: 12/21/23 1903 IMPRESSION: Abnormal hypoattenuation within the right MCA territory with disruption of the sulci and gyral pattern. Findings are consistent with recent infarct. No acute hemorrhage. There are also no recent studies available for comparison Evidence of previous infarcts in the left temporal and right occipital lobes suggesting patient may have underlying embolic issues Ventricles and cisterns normal for age No evidence of posterior fossa abnormality Findings called to patient''s nurse prior to dictation N.B. : The above Results were Read Back by Garrick Lopez MD to KELSIE Christiansen, and understanding confirmed on 12/20/2023 12:01:44 (ET). Electronically Signed: Garrick Lopez MD at 12:07 EDT , ADDENDUM: 12/21/231902 IMPRESSION: Abnormal hypoattenuation within the right MCA territory with disruption of the sulci and gyral pattern. Findings are consistent with recent infarct. No acute hemorrhage. There are also no recent studies available for comparison Evidence of previous infarcts in the left temporal and right occipital lobes suggesting patient may have underlying embolic issues Ventricles and cisterns normal for age No evidence of posterior fossa abnormality Findings called to patient''s nurse prior to dictation N.B. : The above Results were Read Back by Garrick Lopez MD to KELSIE Christiansen, and understanding confirmed on 12/20/2023 12:01:44 (ET). Electronically Signed: Garrick Lopez MD at 12:07 EDT , ADDENDUM: 12/21/231902 IMPRESSION: undefined ADDENDUM: 12/21/231902 IMPRESSION: undefined ADDENDUM: 12/21/231903 IMPRESSION: Abnormal hypoattenuation within the right MCA territory with disruption of the sulci and gyral pattern. Findings are consistent with recent infarct. No acute hemorrhage. There are also no recent studies available for comparison Evidence of previous infarcts in the left temporal and right occipital lobes suggesting patient may have underlying embolic issues Ventricles and cisterns normal for age No evidence of posterior fossa abnormality Findings called to patient''s nurse prior to dictation N.B. : The above Results were Read Back by Garrick Lopez MD to KELSIE Christiansen, and understanding confirmed on 12/20/2023 12:01:44 (ET). Electronically Signed: Garrick Lopez MD at 12:07 EDT , ADDENDUM: 12/21/23 190 IMPRESSION: Abnormal hypoattenuation within the right MCA territory with disruption of the sulci and gyral pattern. Findings are consistent with recent infarct. No acute hemorrhage. There are also no recent studies available for comparison Evidence of previous infarcts in the left temporal and right occipital lobes suggesting patient may have underlying embolic issues Ventricles and cisterns normal for age No evidence of posterior fossa abnormality Findings called to patient''s nurse prior to dictation N.B. : The above Results were Read Back by Garrick Lopez MD to KELSIE Christiansen, and understanding confirmed on 12/20/2023 12:01:44 (ET). Electronically Signed: Garrick Lopez MD at 12:07 EDT , ADDENDUM: 12/21/231903 IMPRESSION: undefined Head/Neck CTA 12/20/23 11:26 IMPRESSION: Atherosclerotic irregularity of the right and left M2 segments of the middle cerebral arteries bilaterally. Findings suggestive an occlusion in the distal branches of the right M2 segment. Calcific plaque at the origin of the right internal carotid artery causing between 50 and 69% stenosis as well as less than 50% narrowing at the origin of the left internal carotid artery. Electronically Signed: Ronnie Saavedra MD at 8:44 EDT , Transesophageal Echocardiogram 12/21/23 09:00 Interpretation Summary Normal left ventricle. Left ventricular systolic function is normal. The estimated ejection fraction is 65 %. No mass or vegetation noted. Ordering Physician: Kike Tello Referring Physician: Raúl Eric Performed By: Mary Mitchell, ELENI, RVT Physical Exam Const no apparent distress Resp normal respiratory effort GI soft to palpation and non-tender Assessment & Plan Assessment/Plan (1) MSSA bacteremia: PLAN: The patient's white count is normal I discussed with ID yesterday. I will place a new tunneled dialysis catheter today. I will place on the left side as the patient had atherosclerotic disease of the carotid on the right causing CVA and likely will need carotid endarterectomy. I discussed this with the patient in detail and I discussed the risks once more with her such as bleeding or infection or pneumothorax. Patient understands the risks and she is willing to proceed. Juan Alberto Mcgregor MD Pager: [facility] [address] [place] [address], [address] [place] [address] Office:
--- NOTE | 2023-12-22 08:53 | CASEMGMT ---
Discharge Planning A list of SNF providers including quality and resource use data and consistent with the patient's preferred geographic region, medical needs, and insurance network was created in [employer].? This list was provided to the SW. Rekha Moore Discharge Planning Asst.
--- NOTE | 2023-12-22 10:29 | PCM.PN.ID ---
Physical Exam Narrative Sleepy this AM, feeling ok, no fever Const no apparent distress General Appearance: cooperative Orientation / Consciousness: lethargic Resp normal air movement and clear to auscultation bilaterally Cardio regular rate and regular rhythm GI soft to palpation, non-tender and non-distended Skin no rashes or lesions noted ID ID: Route of nutrition/ use of supplements: [] Nutritional Intake: [] IV Site: [] [place] Catheter: [] Assessment & Plan Assessment/Plan (1) ESRD on hemodialysis: (2) MSSA bacteremia: PLAN: MSSA bacteremia with endocarditis and stroke, suspect from permacath. Line removed 12/19/23. Cont cefepime. HONG full report showed no veg. Splinter hemorrhages seen on exam. Ok for permacath placement. Will order 6 weeks iv cefepime dosed with HD, stop date 01/30/24 with weekly labs, ID followup in 2-3 weeks. Will follow, d/w case worker, wrote rx
[2023-12-22] MEDS: Menthol/Lanolin/Calamine/Znox 113 GM Tube 1 APPLIC TOPICAL (11:16)
[2023-12-22] MEDS: Cefepime HCl 1 GM in 0.9% Normal Saline (50mL MB+) 50 ML IV (11:18)
--- NOTE | 2023-12-22 11:18 | PCM.PN.REN ---
Subjective Subjective Somewhat sleepy today. She does open her eyes on commands but falls asleep almost immediately. Still has left-sided weakness. Objective Data Objective Data Vital Signs: Vital Signs Temp Pulse Resp BP Pulse Ox O2 Del Method O2 Flow Rate 97.6 F L 69 18 118/65 100 Nasal Cannula 2 12/22/23 10:00 12/22/23 10:00 12/22/23 10:00 12/22/23 10:00 12/22/23 10:00 12/22/23 10:00 12/22/23 10:00 Oxygen Flow Rate (L/min) 2 Oxygen Delivery Method Nasal Cannula Weight: 78.5 kg Body Mass Index (BMI) 27.9 Intake & Output: Intake and Output for Last 24 Hours 12/20/23 12/21/23 12/22/23 23:59 23:59 23:59 Intake Total 50 / 50 890 / 890 Output Total 1850 / 1850 1090 / 1090 250 / 250 Balance -1800 / -1800 -200 / -200 -250 / -250 Lab / Micro Data 12/22/23 05:50 12/22/23 05:50 Labs: Laboratory Results - last 24 hr 12/21/23 16:47: POC Glucose 68 L 12/21/23 17:47: POC Glucose 85 12/21/23 21:24: POC Glucose 87 12/22/23 05:50: WBC 5.0, RBC 2.30 L, Hgb 7.1 L, Hct 22.2 L, MCV 96.5, MCH 30.9, MCHC 32.0, RDW Std Deviation 54.9 H, RDW Coeff of Fior 15.6 H, Plt Count 170, MPV 11.0, Immature Gran % (Auto) 3.000 H, Neut % (Auto) 63.1, Lymph % (Auto) 19.6, [place] % (Auto) 8.1, Eos % (Auto) 5.8 H, Baso % (Auto) 0.4, Absolute Neuts (auto) 3.1, Absolute Lymphs (auto) 0.97, Nucleated RBC % 0, Sodium 136, Potassium 4.9, Chloride 103, Carbon Dioxide 21.0, Anion Gap 12, BUN 117 H*, Creatinine 8.44 H*, Estim Creat Clear Calc 7.68, Est GFR (MDRD) Af Amer 6 L, Est GFR (MDRD) Non-Af 5 L, BUN/Creatinine Ratio 13.9, Glucose 157 H, Calcium 6.9 L 12/22/23 06:20: POC Glucose 150 H Micro: Microbiology 12/20/23 10:16 Blood Culture (Wb) - Right Hand Blood Culture - Preliminary No growth in 48 hours. 12/19/23 08:44 Blood Culture (Wb) - Right Hand Blood Culture - Preliminary No growth in 48 hours. 12/19/23 09:00 Blood Culture (Wb) - Dialysis/Fistula Blood Culture - Preliminary No growth in 48 hours. 12/16/23 14:24 Blood Culture (Wb) - Anticubital Right Blood Culture - Final Staphylococcus aureus 12/16/23 14:45 Blood Culture (Wb) - Left Hand Blood Culture - Final Staphylococcus aureus 12/16/23 14:33 Urine, Catheterized Urine Culture - Final Culture exhibits no growth. 12/16/23 14:24 Mucosa - Nasopharyngeal SARS-CoV-2, Influenza & RSV (PCR) - Final Radiography Diagnostic Testing: Radiology Impression Brain CT 12/20/23 11:20 IMPRESSION: Abnormal hypoattenuation within the right MCA territory with disruption of the sulci and gyral pattern. Findings are consistent with recent infarct. No acute hemorrhage. There are also no recent studies available for comparison Evidence of previous infarcts in the left temporal and right occipital lobes suggesting patient may have underlying embolic issues Ventricles and cisterns normal for age No evidence of posterior fossa abnormality Findings called to patient''s nurse prior to dictation N.B. : The above Results were Read Back by Garrick Lopez MD to KELSIE Christiansen, and understanding confirmed on 12/20/2023 12:01:44 (ET). Electronically Signed: Garrick Lopez MD at 12:07 EDT , ADDENDUM: 12/20/23 1432 IMPRESSION: Abnormal hypoattenuation within the right MCA territory with disruption of the sulci and gyral pattern. Findings are consistent with recent infarct. No acute hemorrhage. There are also no recent studies available for comparison Evidence of previous infarcts in the left temporal and right occipital lobes suggesting patient may have underlying embolic issues Ventricles and cisterns normal for age No evidence of posterior fossa abnormality Findings called to patient''s nurse prior to dictation N.B. : The above Results were Read Back by Garrick Lopez MD to KELSIE Christiansen, and understanding confirmed on 12/20/2023 12:01:44 (ET). Electronically Signed: Garrick Lopez MD at 12:07 EDT , ADDENDUM: 12/20/23 1432 IMPRESSION: Abnormal hypoattenuation within the right MCA territory with disruption of the sulci and gyral pattern. Findings are consistent with recent infarct. No acute hemorrhage. There are also no recent studies available for comparison Evidence of previous infarcts in the left temporal and right occipital lobes suggesting patient may have underlying embolic issues Ventricles and cisterns normal for age No evidence of posterior fossa abnormality Findings called to patient''s nurse prior to dictation N.B. : The above Results were Read Back by Garrick Lopez MD to KELSIE Christiansen, and understanding confirmed on 12/20/2023 12:01:44 (ET). Electronically Signed: Garrick Lopez MD at 12:07 EDT , ADDENDUM: 12/20/23 1502 IMPRESSION: undefined ADDENDUM: 12/20/23 1502 IMPRESSION: undefined ADDENDUM: 12/21/23 1903 IMPRESSION: Abnormal hypoattenuation within the right MCA territory with disruption of the sulci and gyral pattern. Findings are consistent with recent infarct. No acute hemorrhage. There are also no recent studies available for comparison Evidence of previous infarcts in the left temporal and right occipital lobes suggesting patient may have underlying embolic issues Ventricles and cisterns normal for age No evidence of posterior fossa abnormality Findings called to patient''s nurse prior to dictation N.B. : The above Results were Read Back by Garrick Lopez MD to KELSIE Christiansen, and understanding confirmed on 12/20/2023 12:01:44 (ET). Electronically Signed: Garrick Lopez MD at 12:07 EDT , ADDENDUM: 12/21/23 190 IMPRESSION: Abnormal hypoattenuation within the right MCA territory with disruption of the sulci and gyral pattern. Findings are consistent with recent infarct. No acute hemorrhage. There are also no recent studies available for comparison Evidence of previous infarcts in the left temporal and right occipital lobes suggesting patient may have underlying embolic issues Ventricles and cisterns normal for age No evidence of posterior fossa abnormality Findings called to patient''s nurse prior to dictation N.B. : The above Results were Read Back by Garrick Lopez MD to KELSIE Christiansen, and understanding confirmed on 12/20/2023 12:01:44 (ET). Electronically Signed: Garrick Lopez MD at 12:07 EDT , ADDENDUM: 12/21/231902 IMPRESSION: undefined ADDENDUM: 12/21/231902 IMPRESSION: undefined ADDENDUM: 12/21/231903 IMPRESSION: Abnormal hypoattenuation within the right MCA territory with disruption of the sulci and gyral pattern. Findings are consistent with recent infarct. No acute hemorrhage. There are also no recent studies available for comparison Evidence of previous infarcts in the left temporal and right occipital lobes suggesting patient may have underlying embolic issues Ventricles and cisterns normal for age No evidence of posterior fossa abnormality Findings called to patient''s nurse prior to dictation N.B. : The above Results were Read Back by Garrick Lopez MD to KELSIE Christiansen, and understanding confirmed on 12/20/2023 12:01:44 (ET). Electronically Signed: Garrick Lopez MD at 12:07 EDT , ADDENDUM: 12/21/231903 IMPRESSION: Abnormal hypoattenuation within the right MCA territory with disruption of the sulci and gyral pattern. Findings are consistent with recent infarct. No acute hemorrhage. There are also no recent studies available for comparison Evidence of previous infarcts in the left temporal and right occipital lobes suggesting patient may have underlying embolic issues Ventricles and cisterns normal for age No evidence of posterior fossa abnormality Findings called to patient''s nurse prior to dictation N.B. : The above Results were Read Back by Garrick Lopez MD to KELSIE Christiansen, and understanding confirmed on 12/20/2023 12:01:44 (ET). Electronically Signed: Garrick Lopez MD at 12:07 EDT , ADDENDUM: 12/21/231903 IMPRESSION: undefined Head/Neck CTA 12/20/23 11:26 IMPRESSION: Atherosclerotic irregularity of the right and left M2 segments of the middle cerebral arteries bilaterally. Findings suggestive an occlusion in the distal branches of the right M2 segment. Calcific plaque at the origin of the right internal carotid artery causing between 50 and 69% stenosis as well as less than 50% narrowing at the origin of the left internal carotid artery. Electronically Signed: Ronnie Saavedra MD at 8:44 EDT , Transesophageal Echocardiogram 12/21/23 09:00 Interpretation Summary Normal left ventricle. Left ventricular systolic function is normal. The estimated ejection fraction is 65 %. No mass or vegetation noted. Ordering Physician: Kike Tello Referring Physician: Raúl Eric Performed By: Mary Mitchell, ELENI, RVT Physical Exam Narrative no apparent distress S1, S2, RRR Lung sounds clear Abdomen soft, nontender No pitting edema Left mid arm AV fistula positive thrill and bruit Assessment & Plan Assessment/Plan (1) ESRD on hemodialysis: (2) Encephalopathy: (3) UTI (urinary tract infection): PLAN: Plan - ESRD on hemodialysis Tuesday at [facility] followed by Dr. Flynn. Dialysis will be arranged today. -Acute metabolic encephalopathy felt to be secondary to Staph aureus bacteremia, New onset stroke. Now possibly uremia. Should hopefully improve with dialysis Staph bacteremia. Right IJ dialysis catheter removed. She has a left arm brachiocephalic fistula but it appears fairly deep. She says the dialysis unit could not get fistula because it was too deep. She says that the surgeon in [place] placed the fistula but was not remember the name. she is in the process of switching to the peritoneal dialysis. Repeat blood cultures are negative. New dialysis catheter to be placed today. We will plan for dialysis. -Anemia of chronic disease; hemoglobin is low again. May need blood transfusion
--- NOTE | 2023-12-22 11:36 | NURSING ---
Patient left unit to AC/preop
[2023-12-22 11:49] LABS: Bedside Glucose 152 mg/dL (74-106)
[2023-12-22] MEDS: 0.9% Normal Saline (1000mL) 1,000 ML 15 ML IV (11:57)
--- NOTE | 2023-12-22 12:38 | PN_ITS ---
Subjective Subjective Patient seen and examined. She was more lethargic today. She is due for temporary dialysis catheter insertion today. Hemoglobin is 7.1. Objective Data Objective Data Vital Signs: Vital Signs Temp Pulse Resp BP Pulse Ox O2 Del Method O2 Flow Rate 97.6 F L 69 18 118/65 100 Nasal Cannula 2 12/22/23 10:00 12/22/23 10:00 12/22/23 10:00 12/22/23 10:00 12/22/23 10:00 12/22/23 10:00 12/22/23 10:00 Oxygen Flow Rate (L/min) 2 Oxygen Delivery Method Nasal Cannula Weight: 173 lb 1.006 oz Body Mass Index (BMI) 27.9 Intake & Output: Intake and Output for Last 24 Hours 12/20/23 12/21/23 12/22/23 23:59 23:59 23:59 Intake Total 50 / 50 890 / 890 50 / 50 Output Total 1850 / 1850 1090 / 1090 250 / 250 Balance -1800 / -1800 -200 / -200 -200 / -200 Lab / Micro Data 12/22/23 05:50 12/22/23 05:50 Labs: Laboratory Results - last 24 hr 12/21/23 16:47: POC Glucose 68 L 12/21/23 17:47: POC Glucose 85 12/21/23 21:24: POC Glucose 87 12/22/23 05:50: WBC 5.0, RBC 2.30 L, Hgb 7.1 L, Hct 22.2 L, MCV 96.5, MCH 30.9, MCHC 32.0, RDW Std Deviation 54.9 H, RDW Coeff of Fior 15.6 H, Plt Count 170, MPV 11.0, Immature Gran % (Auto) 3.000 H, Neut % (Auto) 63.1, Lymph % (Auto) 19.6, [place] % (Auto) 8.1, Eos % (Auto) 5.8 H, Baso % (Auto) 0.4, Absolute Neuts (auto) 3.1, Absolute Lymphs (auto) 0.97, Nucleated RBC % 0, Sodium 136, Potassium 4.9, Chloride 103, Carbon Dioxide 21.0, Anion Gap 12, BUN 117 H*, Creatinine 8.44 H*, Estim Creat Clear Calc 7.68, Est GFR (MDRD) Af Amer 6 L, Est GFR (MDRD) Non-Af 5 L, BUN/Creatinine Ratio 13.9, Glucose 157 H, Calcium 6.9 L 12/22/23 06:20: POC Glucose 150 H 12/22/23 11:28: POC Glucose 152 H Micro: Microbiology 12/20/23 10:16 Blood Culture (Wb) - Right Hand Blood Culture - Preliminary No growth in 48 hours. 12/19/23 08:44 Blood Culture (Wb) - Right Hand Blood Culture - Preliminary No growth in 48 hours. 12/19/23 09:00 Blood Culture (Wb) - Dialysis/Fistula Blood Culture - Pre liminary No growth in 48 hours. 12/16/23 14:24 Blood Culture (Wb) - Anticubital Right Blood Culture - Final Staphylococcus aureus 12/16/23 14:45 Blood Culture (Wb) - Left Hand Blood Culture - Final Staphylococcus aureus 12/16/23 14:33 Urine, Catheterized Urine Culture - Final Culture exhibits no growth. 12/16/23 14:24 Mucosa - Nasopharyngeal SARS-CoV-2, Influenza & RSV (PCR) - Final Radiography Diagnostic Testing: Radiology Impression Brain CT 12/20/23 11:20 IMPRESSION: Abnormal hypoattenuation within the right MCA territory with disruption of the sulci and gyral pattern. Findings are consistent with recent infarct. No acute hemorrhage. There are also no recent studies available for comparison Evidence of previous infarcts in the left temporal and right occipital lobes suggesting patient may have underlying embolic issues Ventricles and cisterns normal for age No evidence of posterior fossa abnormality Findings called to patient''s nurse prior to dictation N.B. : The above Results were Read Back by Garrick Lopez MD to KELSIE Christiansen, and understanding confirmed on 12/20/2023 12:01:44 (ET). Electronically Signed: Garrick Lopez MD at 12:07 EDT , ADDENDUM: 12/20/23 6082 IMPRESSION: Abnormal hypoattenuation within the right MCA territory with disruption of the sulci and gyral pattern. Findings are consistent with recent infarct. No acute hemorrhage. There are also no recent studies available for comparison Evidence of previous infarcts in the left temporal and right occipital lobes suggesting patient may have underlying embolic issues Ventricles and cisterns normal for age No evidence of posterior fossa abnormality Findings called to patient''s nurse prior to dictation N.B. : The above Results were Read Back by Garrick Lopez MD to KELSIE Christiansen, and understanding confirmed on 12/20/2023 12:01:44 (ET). Electronically Signed: Garrick Lopez MD at 12:07 EDT , ADDENDUM: 12/20/23 1432 IMPRESSION: Abnormal hypoattenuation within the right MCA territory with disruption of the sulci and gyral pattern. Findings are consistent with recent infarct. No acute hemorrhage. There are also no recent studies available for comparison Evidence of previous infarcts in the left temporal and right occipital lobes suggesting patient may have underlying embolic issues Ventricles and cisterns normal for age No evidence of posterior fossa abnormality Findings called to patient''s nurse prior to dictation N.B. : The above Results were Read Back by Garrikc Lopez MD to KELSIE Christiansen, and understanding confirmed on 12/20/2023 12:01:44 (ET). Electronically Signed: Garrick Lopez MD at 12:07 EDT , ADDENDUM: 12/20/23 1502 IMPRESSION: undefined ADDENDUM: 12/20/23 1502 IMPRESSION: undefined ADDENDUM: 12/21/23 1903 IMPRESSION: Abnormal hypoattenuation within the right MCA territory with disruption of the sulci and gyral pattern. Findings are consistent with recent infarct. No acute hemorrhage. There are also no recent studies available for comparison Evidence of previous infarcts in the left temporal and right occipital lobes suggesting patient may have underlying embolic issues Ventricles and cisterns normal for age No evidence of posterior fossa abnormality Findings called to patient''s nurse prior to dictation N.B. : The above Results were Read Back by Garrick Lopez MD to KELSIE Christiansen, and understanding confirmed on 12/20/2023 12:01:44 (ET). Electronically Signed: Garrick Lopez MD at 12:07 EDT , ADDENDUM: 12/21/23 190 IMPRESSION: Abnormal hypoattenuation within the right MCA territory with disruption of the sulci and gyral pattern. Findings are consistent with recent infarct. No acute hemorrhage. There are also no recent studies available for comparison Evidence of previous infarcts in the left temporal and right occipital lobes suggesting patient may have underlying embolic issues Ventricles and cisterns normal for age No evidence of posterior fossa abnormality Findings called to patient''s nurse prior to dictation N.B. : The above Results were Read Back by Garrick Lopez MD to KELSIE Christiansen, and understanding confirmed on 12/20/2023 12:01:44 (ET). Electronically Signed: Garrick Lopez MD at 12:07 EDT , ADDENDUM: 12/21/231902 IMPRESSION: undefined ADDENDUM: 12/21/231902 IMPRESSION: undefined ADDENDUM: 12/21/231903 IMPRESSION: Abnormal hypoattenuation within the right MCA territory with disruption of the sulci and gyral pattern. Findings are consistent with recent infarct. No acute hemorrhage. There are also no recent studies available for comparison Evidence of previous infarcts in the left temporal and right occipital lobes suggesting patient may have underlying embolic issues Ventricles and cisterns normal for age No evidence of posterior fossa abnormality Findings called to patient''s nurse prior to dictation N.B. : The above Results were Read Back by Garrick Lopez MD to KELSIE Christiansen, and understanding confirmed on 12/20/2023 12:01:44 (ET). Electronically Signed: Garrick Lopez MD at 12:07 EDT , ADDENDUM: 12/21/231903 IMPRESSION: Abnormal hypoattenuation within the right MCA territory with disruption of the sulci and gyral pattern. Findings are consistent with recent infarct. No acute hemorrhage. There are also no recent studies available for comparison Evidence of previous infarcts in the left temporal and right occipital lobes suggesting patient may have underlying embolic issues Ventricles and cisterns normal for age No evidence of posterior fossa abnormality Findings called to patient''s nurse prior to dictation N.B. : The above Results were Read Back by Garrick Lopez MD to KELSIE Christiansen, and understanding confirmed on 12/20/2023 12:01:44 (ET). Electronically Signed: Garrick Lopez MD at 12:07 EDT , ADDENDUM: 12/21/231903 IMPRESSION: undefined Head/Neck CTA 12/20/23 11:26 IMPRESSION: Atherosclerotic irregularity of the right and left M2 segments of the middle cerebral arteries bilaterally. Findings suggestive an occlusion in the distal branches of the right M2 segment. Calcific plaque at the origin of the right internal carotid artery causing between 50 and 69% stenosis as well as less than 50% narrowing at the origin of the left internal carotid artery. Electronically Signed: Ronnie Saavedra MD at 8:44 EDT , Transesophageal Echocardiogram 12/21/23 09:00 Interpretation Summary Normal left ventricle. Left ventricular systolic function is normal. The estimated ejection fraction is 65 %. No mass or vegetation noted. Ordering Physician: Kike Tello Referring Physician: Raúl Eric Performed By: Mary Mitchell, ELENI, RVT Physical Exam Const alert and no apparent distress Constitutional Narrative: frail, lethargic General Appearance: cooperative Orientation / Consciousness: lethargic HEENT normocephalic, head/scalp atraumatic and moist oral mucous membranes Eyes PERRL and EOMs intact bilaterally Neck no lymphadenopathy and supple Lymph Lymphatic: no lymphadenopathy noted and no lymphedema noted Resp Resp Narrative: diinished breath sounds bibasally, no wheezes or crackles. on room air. Cardio regular rate, regular rhythm, S1 normal heart sound, S2 normal heart sound and no murmurs GI normal to inspection, nondistended, normoactive bowel sounds, soft to palpation, non-tender and non-distended Extremity normal capillary refill, no clubbing, cyanosis or edema and no calf tenderness Extremity Narrative: intact dressing over dialysis catheter site General Extremity: no tenderness to palpation of joints or extremities Skin Skin Narrative: intact dressing over dialysis catheter site General Skin Exam: no breakdown Neuro CN's II-XII intact bilaterally Neuro Narrative: lethargic Motor Exam: strength 5/5 throughout and general weakness Psych Psych Narrative: lethargic Mood & Affect: flat affect Assessment & Plan Assessment/Plan (1) UTI (urinary tract infection): (2) ESRD on hemodialysis: PLAN: Plan #Acute encephalopathy, likely due to UTI and Staph bacteremia * blood cultures positive for staph aureus * ID on board * on IV vancomycin and cefepime, per ID * 2D echo showed no evidence of vegetation. * dialysis catheter removed * HONG also negative for any evidence of a stroke * #Subacute ischemic CVA * Found to have new left-sided weakness and slurred speech and some facial droop. CT of the brain done as stated above showed right ischemic infarct in the right MCA territory which appears to be subacute. This was new compared to previous CT of the brain from October 2023. * HONG done today negative for stroke. * On Plavix already. Will hold Plavix today as she is having the dialysis catheter inserted tomorrow then will resume. * Will get further neurology recommendations in light of the HONG being negative. * CTA head and neck showed calcified plaque at the origin of the right internal carotid artery causing between 50 to 69% stenosis as well as less than 50% narrowing at the origin of the left internal carotid artery. * 2D echo as above. * neurology on board * PT/OT on board * fall precautions * MRI ordered today * resume aspirin and plavix once she has the dialysis catheter inserted * Vascular surgery consulted. * #Staph bacteremia: as above #Acute on chronic anemia of chronic disease * Hb today is 7.1. she was transfused with one unit of PRBC during this admi ssion. * likely due to ESRD * transfuse if Hb <7 * #Thrombocytopenia * resolved. * #ESRD. * on HD. Nephrology on board. * On dialysis MWF. Dialysis catheter removed due to staph bacteremia. * Temporary dialysis catheter tp be inserted by general surgery tomorrow * # Hyperlipidemia: On statin #Type 2 diabetes mellitus: On Lantus 5 units daily. Insulin Sliding scale. Accu-Cheks ACHS. #Hypothyroidism: On Synthroid. #Depression: olanzapine DVT prophylaxis; SCDs o/a of acute on chronic anemia Charges/Coding Visit Charges Inpatient E&M: 06599 Subs Hosp L3
--- NOTE | 2023-12-22 12:40 | MRI_ITS ---
STUDY: MRI BRAIN WITHOUT CONTRAST REASON FOR EXAM: Female, 58 years old. Stroke TECHNIQUE: Standardized multiplanar fat and water weighted pulse sequences were obtained. MRI examination brain obtained with standard protocol including multiplanar multiecho noncontrast imaging. Contrast: No contrast administered. COMPARISON: CTA examination of 12/20/2023 LIMITATIONS: Mild to moderate motion artifact. HEMISPHERES, CEREBELLUM AND BRAINSTEM: 1. The cerebral parenchyma, ventricular system, subarachnoid spaces have normal configuration and density. There is a normal gyral pattern. There is normal mauro/white differentiation. No midline shift.. 2. There is moderate-sized area of fluid restriction involving the posterior RIGHT frontal lobe, parietal lobe, and posterior insula consistent with fluid restriction and acute ischemic change. Mild involvement with the posterior portion of the RIGHT superior temporal gyrus. The pattern and distribution correspond to the areas of abnormal density and subacute infarct on the recent CTA exam. 3. No evidence of hemosiderin deposition hemorrhage or petechial transformation. 4. Chronic deep white matter disease and several focal punctate areas of remote lacunar infarct in the coronal radiata. 5. There is an area of encephalomalacic change status post remote infarct involving the RIGHT occipital pole. 6. The cerebellum, brainstem, basilar and suprasellar cisterns have normal appearance. No Chiari malformation. PITUITARY: Infundibulum and pituitary have normal configuration. Midline structures appear normal. CSF SPACES: Appropriate for age. No hydrocephalus. Basal cisterns are patent. VESSELS: 1. There are normal flow voids noted in the great vessels at the skull base ORBITS AND PARANASAL SINUSES: 1. Both globes, extraocular muscles, optic nerves and retrobulbar fat appear unremarkable. 2. Paranasal sinuses are clear. BONY ELEMENTS: Bony elements of the cranial vault, facial skeleton and skull base have normal appearance. SCALP AND SOFT TISSUES: Normal appearance of the soft tissues of the scalp and the visualized face OTHER: None MRI/Brain without Contrast IMPRESSION: 1. Moderate-sized area of subacute nonhemorrhagic infarct in the RIGHT hemisphere involving the posterior RIGHT frontal, parietal lobe, and extending into the posterior insula. Mild involvement with the superior temporal gyrus. Pattern and distribution are consistent with the previous hypodense area/infarct on CTA examination. No change in size or distribution. Findings are consistent with a inferior RIGHT M2/MCA infarct. 2. No evidence of petechial transformation or hemorrhage. 3. Chronic deep white matter disease and areas remote lacunar infarct in the hemispheric white matter, an area of remote infarct and encephalomalacic area in the RIGHT occipital pole. Electronically Signed: Scot Aldrich MD at 22:09 EDT ,
--- NOTE | 2023-12-22 12:48 | CHAPLAIN ---
Type of Pastoral Visit _x__ Initial Visit ___ Follow-up Visit ___ On-call Visit ___ General Patient Visit ___ Spiritual Assessment ___ Family Conference ___ Bereavement ___ Rapid Response ___ Code Blue ___ Other (describe below) Pastoral Care Referral From _x__ Patient _x__ Family ___ Nurse ___ Physician ___ Inventory Specialist ___ Supervisor Instrument Repair ___ Other (describe below) Sacrament/Intervention ___ Active listening ___ Anointing ___ Temple ___ Bereavement ___ Communion ___ Stacey exploration ___ ___ Life review _x__ Prayer ___ Reconciliation ___ Sacrament of Sick _x__ Supportive presence ___ Wedding ___ Other (describe below) Pastoral Comments patient appears to be quietly resting in bed; pt awakens to her name; pt is slow to speak and to answer the questions; pt does appear to remember this headlight adjuster; pt states no needs; pt indicates no wants for anything; offer of prayer given and patient says ok; pt drifts in and out of apparent sleep during the brief visit
[2023-12-22] MEDS: Lidocaine 1% /Epi 1:100 (20ml) 20 ML Vial (12:54)
[2023-12-22] MEDS: Heparin 10,000 UNITS/10 ML Vial 10000 UNITS (13:00)
--- NOTE | 2023-12-22 13:26 | OP.PCM_ITS ---
Report of Operation Date of Procedure: 12/22/23 Pre-Operative Diagnosis: Need for dialysis access and previously infected right IJ dialysis catheter Post-Operative Diagnosis: Same Surgery/Procedure Performed:: Ultrasound and fluoroscopy guided left tunneled dialysis catheter placement utilizing left IJ Type of Anesthesia: Local MAC Estimated Blood Loss (mL): 10 Description of Procedure: Patient was brought back the operating room and MAC anesthesia was induced. The left neck was prepped and draped in usual sterile fashion. Ultrasound was used to localize the left IJ. The skin overlying the IJ was injected with a local anesthetic under direct visualization. Next an area of the chest was injected with local anesthetic as well. Small scalpel was used to make an incision in the neck and in the chest. Through the neck incision under ultrasound guidance the left IJ was accessed with the access needle and guidewire was placed without resistance under fluoroscopy. Next the needle was removed off the guidewire and serial dilators and the peel-away sheath were placed down the wire over fluoroscopy guidance. The guidewire was removed and a cap was placed on the catheter. Next the catheter was tunneled from the chest up to the neck incision and then placed through the peel-away sheath and then the peel-away sheath was removed. The catheter was in good position on fluoroscopy. Next the neck incision was closed with a 3-0 Vicryl suture. Each catheter was aspirated and flushed. They both aspirated and flushed easily. Next each catheter was injected with 2 cc of heparinized saline and then they were both clamped and capped. Next an area of skin was injected with local anesthetic and the catheter was sutured to the skin using 3-0 nylon suture. Bandages were then ap plied. Patient was taken to PACU in stable condition and chest x-ray will be obtained. Grafts/Implants Used: 23 cm palindrome curved temporary dialysis catheter Admit VTE Documentation VTE Mechan Device Prophylaxis: SCD's
--- NOTE | 2023-12-22 13:26 | CASEMGMT ---
LUCRETIA met with patient's niece Yamel per her request. Yamel said she is patient's caregiver. However, she feels patient should go somewhere for rehab. Yamel spoke with Minnie and they suggested [facility]. Yamel has not talked with patient about this yet. Patient has been in and out of confusion this visit. Yamel said she will come in tomorrow morning and talk with patient about it. LUCRETIA did explain that if patient is alert and oriented and refuses to go to a SNF SW cannot make patient. Yamel verbalized understanding. LUCRETIA and Yamel will talk with patient tomorrow am together. LUCRETIA asked Rekha to send a referral to [facility]. Kamilla Tinsley [employer]
--- NOTE | 2023-12-22 13:30 | RAD_ITS ---
STUDY: X-RAY CHEST REASON FOR EXAM: Female, 58 years old. Line placement -- in pacu TECHNIQUE: Single AP portable view of the chest. COMPARISON: Comparison is made with prior study dated December 16, 2023. FINDINGS: A left-sided double lumen catheter placed with the tip in the right atrium. The previously seen right-sided double catheter has been removed. Blunting of the right costo phrenic angle with mild increased markings at the lung bases. There is mild cardiac enlargement. Normal mediastinum and elvie. Normal visualized pulmonary arteries. Normal visualized aortic arch and descending thoracic aorta. There are diffuse degenerative changes of the visualized thoracic spine. Prior fusion of the lower thoracic and upper lumbar spine. Normal visualized ribs, clavicles, and shoulders. There is no demonstrated abnormality of the visualized soft tissue structures of the upper abdomen. RAD/CXR for Line Placement IMPRESSION: The tip of the left-sided double-lumen catheter is in the right atrium. Electronically Signed: Ronnie Saavedra MD at 13:59 EDT ,
--- NOTE | 2023-12-22 14:05 | CASEMGMT ---
Addendum entered by Rekha Moore 12/22/23 15:05: [facility] accepted patient. Rekha Moore, Discharge Planning Asst. Original Note: Discharge Planning Referral sent via [facility] to [facility]. Rekha Moore, Discharge Planning Asst.
--- NOTE | 2023-12-22 14:20 | NURSING ---
Patient returned from PACU
[2023-12-22] MEDS: buPROPion (XL) 150 MG TABLET.XL PO (14:40)
[2023-12-22] MEDS: amLODIPine 5 MG Tablet PO (14:40)
[2023-12-22] MEDS: Atorvastatin Calcium 20 MG Tablet PO (14:40)
[2023-12-22] MEDS: Isosorbide DN 20 MG Tablet PO ×2 (14:41→21:37)
[2023-12-22] MEDS: Ascorbic Acid 500 MG Tablet PO ×2 (14:41→21:37)
[2023-12-22] MEDS: Ferrous Sulfate 325 MG Tablet PO (14:41)
[2023-12-22] MEDS: Pramipexole Di-HCl 1 MG Tablet 1.5 MG PO ×2 (14:41→21:37)
[2023-12-22] MEDS: Calcium Acetate 667 MG Capsule PO ×2 (14:41→17:42)
[2023-12-22] MEDS: Paroxetine 20 MG Tablet PO (14:42)
[2023-12-22] MEDS: 0.9% Normal Saline 1,000 ML IV.SOLN. 1000 ML OPERA.SITE (14:54)
[2023-12-22] MEDS: 0.9% Saline Lock 10 ML Syringe IV ×2 (14:55→16:42)
[2023-12-22] MEDS: PureFlow B 2K Dialysis Soln 1 BAG 6 BAG PF (14:55)
[2023-12-22 16:33] LABS: Bedside Glucose 124 mg/dL (74-106)
[2023-12-22] MEDS: Heparin 10,000 UNITS/10 ML Vial IV (16:42)
[2023-12-22] MEDS: hydrALAZINE 25 MG Tablet PO (17:42)
[2023-12-22] MEDS: Pantoprazole Sodium 40 MG Tablet PO (17:42)
[2023-12-22] MEDS: Carvedilol 12.5 MG Tablet PO (17:44)
--- NOTE | 2023-12-22 17:47 | EX.PCM.CON.S ---
Assessment & Plan Assessment/Plan (1) Carotid artery stenosis: PLAN: Plan CTA was reviewed, there was poor contrast timing but R ICA appeared 45% stenosis by NASCET. Will obtain carotid duplex to correlate. No plans for surgical intervention at this time. Recommend maximizing medical therapy with ASA, Plavix, and increase to high-intensity atorvastatin 80mg daily. Will plan to have her follow-up as an outpatient for ongoing management. HPI Consult Data Date of Consult: 12/22/23 HPI Narrative HPI Narrative: DIONY ROCHA, is a 58 F who was admitted on 12/16/2023for acute encephalopathy in the setting of bacteremia secondary to infected dialysis catheter. On 12/19, she was noted to have worsened L-sided weakness and slurred speech. She had Brain CT which reported recent infarct in the R MCA territory and old infarcts in the left temporal and right occipital lobes. CTA revealed R ICA stenosis, atherosclerosis of the right and left M2 segments of MCA, and occlusion in the distal branches of the right M2 segment. She had a HONG which was negative. MRI is pending. Telemetry neurology consult is pending. Her NIH has been 4-5 for mild facial asymmetry, mild LLE weakness compared to right, and reported numbness. She feels it has been ongoing since she came in to the hospital, is not sure if she had these symptoms prior. She does not feel it has gotten better. She reports that her kids think she's had a previous stroke, but she can't recall when or what the symptoms were. She denies any prior knowledge of carotid disease, no prior carotid interventions. She denies history of Afib. She is on atorvastatin 20mg and Plavix 75mg at home. FORMERLY [facility], [facility] Medical History Acquired varus deformity of left foot Acquired varus deformity of right foot Acute lumbar radiculopathy Acute on chronic anemia Adult failure to thrive Amputation foot, bilat Anemia due to chronic illness Anemia in chronic illness Anxiety and depression Atherosclerosis of afogn[place] coronary artery of afogn[place] heart without angina pectoris Back pain, chronic Bilateral edema of lower extremity Cellulitis Cellulitis of both lower extremities Charcot's joint of right foot Charcot's joint, left ankle and foot Charcot's joint, right ankle and foot Chronic foot pain Chronic kidney disease, stage 3b Chronic kidney disease, stage 4 (severe) Chronic renal disease, stage 4, severely decreased glomerular filtration rate (GFR) between 15-29 mL/min/1.73 square meter Chronic renal insufficiency Chronic ulcer of left foot with fat layer exposed 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 Chronic ulcer of right foot with fat layer exposed Chronic ulcer of right foot with necrosis of bone Chronic ulcer of right foot with necrosis of muscle Chronic ulcer of right leg with fat layer exposed COVID-19 (08/28/21) CRF (chronic renal failure) Debility Delayed wound healing Diabetes Diabetes mellitus with diabetic polyneuropathy Diabetic foot ulcer associated with type 2 diabetes mellitus Diabetic foot ulcers Diabetic infection of left foot Diabetic polyneuropathy Diabetic ulcer of right ankle Elevated troponin End stage renal disease Essential (primary) hypertension Essential hypertension Foot osteomyelitis, left GERD (gastroesophageal reflux disease) Hemoglobin A1c greater than 9.0% HLD (hyperlipidemia) Hyperparathyroidism, secondary renal Hypertension Iron deficiency anemia Ischemic cardiomyopathy Myocardial infarct Non-compliance Non-pressure chronic ulcer of other part of left foot with fat layer exposed Non-pressure chronic 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 layer exposed Non-smoker Normocytic anemia NSTEMI (non-ST elevated myocardial infarction) (09/20/18) Obesity (BMI 30.0-34.9) Osteomyelitis Osteomyelitis of left foot Osteomyelitis of metatarsal RLS (restless legs syndrome) Stage 4 chronic kidney disease TIA (transient ischemic attack) Type 2 diabetes mellitus 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 Ulcer of left foot with fat layer exposed Ulcer of left foot with muscle involvement without evidence of necrosis Ulcer of left foot with necrosis of muscle Ulcer of right lower extremity with fat layer exposed Home Medications paroxetine HCl 20 mg tablet 20 mg PO DAILY DEPRESSION 07/07/21 [History Last Taken 04/07/22] bupropion HCl 150 mg 24 hr tablet, extended release 150 mg PO DAILY mood 02/04/22 [History Last Taken 04/07/22] sennosides 8.6 mg-docusate sodium 50 mg tablet (Stool Softener-Stimulant Laxative) 2 tab PO BID PRN PRN Constipation #0 tabs 04/24/22 [Rx Last Taken Unknown] ascorbic acid (vitamin C) 500 mg tablet (Vitamin C) 500 mg PO BID supplement 05/05/22 [History Last Taken Unknown] clopidogrel 75 mg tablet 75 mg PO DAILY prevent stroke 07/19/22 [History Last Taken Unknown] ferrous sulfate 325 mg (65 mg iron) tablet 325 mg PO .three times a week anemia 07/19/22 [History Last Taken Unknown] pantoprazole 40 mg tablet,delayed release 40 mg PO BIDCM GERD 07/19/22 [History Last Taken Unknown] insulin glargine-yfgn 100 unit/mL (3 mL) subcutaneous pen 5 unit (0.05 mL) subcut QHS blood sugar #15 mL 07/21/22 [Rx Last Taken Unknown] insulin lispro 100 unit/mL subcutaneous pen (Humalog KwikPen (U-100) Insulin) See Protocol subcut TIDAC #0 mL 07/21/22 [Rx Last Taken Unknown] cyclobenzaprine 5 mg tablet 5 mg PO TID PRN muscle spasm #21 tabs 11/26/23 [Rx Last Taken Unknown] gabapentin 100 mg capsule 100 mg PO .COMPLEX PRN pain 11/26/23 [History Last Taken Unknown] Mircera See Rx Instructions .Route .COMPLEX dialysis 12/16/23 [History Last Taken Unknown] Venofer iron 12/16/23 [History Last Taken Unknown] acetaminophen 325 mg capsule 325 mg PO Q4H PRN fever or pain 12/16/23 [History Last Taken Unknown] amlodipine 5 mg tablet 5 mg PO DAILY bp 12/16/23 [History Last Taken Unknown] antacid extra assorted fruit tablets 750 mg PO .every 4 hours PRN tums 12/16/23 [History Last Taken Unknown] atorvastatin 20 mg tablet 20 mg PO DAILY cholestrol 12/16/23 [History Last Taken Unknown] calcitriol 0.5 mcg capsule 0.5 mcg PO .COMPLEX on dialysis 12/16/23 [History Last Taken Unknown] calcium acetate(phosphat bind) 667 mg capsule 676 mg PO TID is on dialysis 12/16/23 [History Last Taken Unknown] carvedilol 12.5 mg tablet 12.5 mg PO BID heart and bp 12/16/23 [History Last Taken Unknown] cloNIDine See Rx Instructions .Route .COMPLEX dialysis 12/16/23 [History Last Taken Unknown] diphenhydramine 25 mg IV itching 12/16/23 [History Last Taken Unknown] folic acid 800 mcg tablet 0.8 mg PO DAILY supplement 12/16/23 [History Last Taken Unknown] hydralazine 25 mg tablet 25 mg PO TID bp 12/16/23 [History Last Taken Unknown] insulin aspart U-100 6 unit subcut TID blood glucose 12/16/23 [History Last Taken Unknown] insulin aspart U-100 100 unit/mL (3 mL) subcutaneous pen subcut 12/16/23 [History Last Taken Unknown] insulin glargine 100 unit/mL (3 mL) subcutaneous pen (Lantus Solostar U-100 Insulin) 20 unit subcut DAILY blood glucose 12/16/23 [History Last Taken Unknown] isosorbide dinitrate 10 mg tablet 20 mg PO TID bp and heart 12/16/23 [History Last Taken Unknown] levothyroxine 25 mcg tablet 25 mcg PO DAILY thyroid 12/16/23 [History Last Taken Unknown] lidocaine-silicone, adhesive topical pain 12/16/23 [History Last Taken Unknown] loperamide 2 mg capsule (Anti-Diarrheal (loperamide)) 2 mg PO Q4H PRN loose stool 12/16/23 [History Last Taken Unknown] melatonin 5 mg capsule 5 mg PO .bedtime sleep 12/16/23 [History Last Taken Unknown] nitroglycerin 0.4 mg sublingual tablet (Nitrostat) 0.4 mg sublingual Q5M chest pain 12/16/23 [History Last Taken Unknown] olanzapine 5 mg tablet 5 mg PO QHS sleep 12/16/23 [History Last Taken Unknown] ondansetron 4 mg disintegrating tablet 4 mg PO DAILY PRN nausea and vomiting 12/16/23 [History Last Taken Unknown] oxycodone-acetaminophen 5 mg-325 mg tablet 1 tab PO Q6H PRN pain 12/16/23 [History Last Taken Unknown] pramipexole dihydrochloride 1.5 mg PO BID unknown 12/16/23 [History Last Taken Unknown] promethazine 25 mg tablet 25 mg PO Q4H PRN nausea and vomiting 12/16/23 [History Last Taken Unknown] cefepime 1 gram solution for injection 2 g IV Q24 40 days #17 ea 12/22/23 [Rx Last Taken Unknown] Allergy/AdvReac Type Severity Reaction Status Date / Time Penicillins Allergy swelling Verified 12/16/23 13:24 in throat vancomycin Allergy Itching Verified 12/16/23 13:24 metronidazole AdvReac Nausea Verified 12/16/23 13:24 oxycodone [From OxyContin] AdvReac Shortness Verified 12/16/23 13:24 of breath Family History Mother Diabetes CVA (cerebral vascular accident) Brother CAD (coronary artery disease) CABG X 3 Cancer testicular Diabetes Brother CAD (coronary artery disease) CABG X3 Diabetes Brother CAD (coronary artery disease) Stents Diabetes Sister CAD (coronary artery disease) CABG x 3 CVA (cerebral vascular accident) Diabetes Surgical History History of bilateral carpal tunnel release History of History of coronary artery stent placement (12/31/20) History of foot surgery History of rotator cuff surgery Social History household members: none number of children: 2 current occupational status: disabled Smoking Status: Never smoker alcohol intake: never substance use type: does not use caffeine: Yes Type: carbonated beverages Number of servings: 2 Physical Exam Const alert, oriented x3 and no apparent distress General Appearance: cooperative HEENT normocephalic and head/scalp atraumatic Eyes EOMs intact bilaterally General Eye: normal appearance of both eyes Neck General: normal visual inspection Resp normal respiratory effort and no retractions Effort and Inspection: able to speak in complete sentences Cardio Rate: regular rate Rhythm: regular rhythm Extremity normal to inspection and no calf tenderness Skin no rashes or lesions noted Neuro Neuro Narrative: Slight L-sided weakness compared to right Reported L-sided numbness Otherwise neurologically intact Lab / Micro Data 12/22/23 05:50 12/22/23 05:50 Labs: Laboratory Results - last 24 hr 12/21/23 17:47: POC Glucose 85 12/21/23 21:24: POC Glucose 87 12/22/23 05:50: WBC 5.0, RBC 2.30 L, Hgb 7.1 L, Hct 22.2 L, MCV 96.5, MCH 30.9, MCHC 32.0, RDW Std Deviation 54.9 H, RDW Coeff of Fior 15.6 H, Plt Count 170, MPV 11.0, Immature Gran % (Auto) 3.000 H, Neut % (Auto) 63.1, Lymph % (Auto) 19.6, [place] % (Auto) 8.1, Eos % (Auto) 5.8 H, Baso % (Auto) 0.4, Absolute Neuts (auto) 3.1, Absolute Lymphs (auto) 0.97, Nucleated RBC % 0, Sodium 136, Potassium 4.9, Chloride 103, Carbon Dioxide 21.0, Anion Gap 12, BUN 117 H*, Creatinine 8.44 H*, Estim Creat Clear Calc 7.68, Est GFR (MDRD) Af Amer 6 L, Est GFR (MDRD) Non-Af 5 L, BUN/Creatinine Ratio 13.9, Glucose 157 H, Calcium 6.9 L 12/22/23 06:20: POC Glucose 150 H 12/22/23 11:28: POC Glucose 152 H 12/22/23 16:09: POC Glucose 124 H Micro: Microbiology 12/20/23 10:16 Blood Culture (Wb) - Right Hand Blood Culture - Preliminary No growth in 48 hours. Imaging Radiology Impression Brain CT 12/20/23 11:20 IMPRESSION: Abnormal hypoattenuation within the right MCA territory with disruption of the sulci and gyral pattern. Findings are consistent with recent infarct. No acute hemorrhage. There are also no recent studies available for comparison Evidence of previous infarcts in the left temporal and right occipital lobes suggesting patient may have underlying embolic issues Ventricles and cisterns normal for age No evidence of posterior fossa abnormality Findings called to patient''s nurse prior to dictation N.B. : The above Results were Read Back by Garrick Lopez MD to KELSIE Christiansen, and understanding confirmed on 12/20/2023 12:01:44 (ET). Electronically Signed: Garrick Lopez MD at 12:07 EDT , ADDENDUM: 12/20/23 9241 IMPRESSION: Abnormal hypoattenuation within the right MCA territory with disruption of the sulci and gyral pattern. Findings are consistent with recent infarct. No acute hemorrhage. There are also no recent studies available for comparison Evidence of previous infarcts in the left temporal and right occipital lobes suggesting patient may have underlying embolic issues Ventricles and cisterns normal for age No evidence of posterior fossa abnormality Findings called to patient''s nurse prior to dictation N.B. : The above Results were Read Back by Garrick Lopez MD to KELSIE Christiansen, and understanding confirmed on 12/20/2023 12:01:44 (ET). Electronically Signed: Garrick Lopez MD at 12:07 EDT , ADDENDUM: 12/20/23 1432 IMPRESSION: Abnormal hypoattenuation within the right MCA territory with disruption of the sulci and gyral pattern. Findings are consistent with recent infarct. No acute hemorrhage. There are also no recent studies available for comparison Evidence of previous infarcts in the left temporal and right occipital lobes suggesting patient may have underlying embolic issues Ventricles and cisterns normal for age No evidence of posterior fossa abnormality Findings called to patient''s nurse prior to dictation N.B. : The above Results were Read Back by Garrick Lopez MD to KELSIE Christiansen, and understanding confirmed on 12/20/2023 12:01:44 (ET). Electronically Signed: Garrick Lopez MD at 12:07 EDT , ADDENDUM: 12/20/23 1502 IMPRESSION: undefined ADDENDUM: 12/20/23 1502 IMPRESSION: undefined ADDENDUM: 12/21/23 1903 IMPRESSION: Abnormal hypoattenuation within the right MCA territory with disruption of the sulci and gyral pattern. Findings are consistent with recent infarct. No acute hemorrhage. There are also no recent studies available for comparison Evidence of previous infarcts in the left temporal and right occipital lobes suggesting patient may have underlying embolic issues Ventricles and cisterns normal for age No evidence of posterior fossa abnormality Findings called to patient''s nurse prior to dictation N.B. : The above Results were Read Back by Garrick Lopez MD to KELSIE Christiansen, and understanding confirmed on 12/20/2023 12:01:44 (ET). Electronically Signed: Garrick Lopez MD at 12:07 EDT , ADDENDUM: 12/21/23 190 IMPRESSION: Abnormal hypoattenuation within the right MCA territory with disruption of the sulci and gyral pattern. Findings are consistent with recent infarct. No acute hemorrhage. There are also no recent studies available for comparison Evidence of previous infarcts in the left temporal and right occipital lobes suggesting patient may have underlying embolic issues Ventricles and cisterns normal for age No evidence of posterior fossa abnormality Findings called to patient''s nurse prior to dictation N.B. : The above Results were Read Back by Garrick Lopez MD to KELSIE Christiansen, and understanding confirmed on 12/20/2023 12:01:44 (ET). Electronically Signed: Garrick Lopez MD at 12:07 EDT , ADDENDUM: 12/21/231902 IMPRESSION: undefined ADDENDUM: 12/21/231902 IMPRESSION: undefined ADDENDUM: 12/21/23 190 IMPRESSION: Abnormal hypoattenuation within the right MCA territory with disruption of the sulci and gyral pattern. Findings are consistent with recent infarct. No acute hemorrhage. There are also no recent studies available for comparison Evidence of previous infarcts in the left temporal and right occipital lobes suggesting patient may have underlying embolic issues Ventricles and cisterns normal for age No evidence of posterior fossa abnormality Findings called to patient''s nurse prior to dictation N.B. : The above Results were Read Back by Garrick Lopez MD to KELSIE Christiansen, and understanding confirmed on 12/20/2023 12:01:44 (ET). Electronically Signed: Garrick Lopez MD at 12:07 EDT , ADDENDUM: 12/21/23 190 IMPRESSION: Abnormal hypoattenuation within the right MCA territory with disruption of the sulci and gyral pattern. Findings are consistent with recent infarct. No acute hemorrhage. There are also no recent studies available for comparison Evidence of previous infarcts in the left temporal and right occipital lobes suggesting patient may have underlying embolic issues Ventricles and cisterns normal for age No evidence of posterior fossa abnormality Findings called to patient''s nurse prior to dictation N.B. : The above Results were Read Back by Garrick Lopez MD to KELSIE Christiansen, and understanding confirmed on 12/20/2023 12:01:44 (ET). Electronically Signed: Garrick Lopez MD at 12:07 EDT , ADDENDUM: 12/21/231903 IMPRESSION: undefined Head/Neck CTA 12/20/23 11:26 IMPRESSION: Atherosclerotic irregularity of the right and left M2 segments of the middle cerebral arteries bilaterally. Findings suggestive an occlusion in the distal branches of the right M2 segment. Calcific plaque at the origin of the right internal carotid artery causing between 50 and 69% stenosis as well as less than 50% narrowing at the origin of the left internal carotid artery. Electronically Signed: Ronnie Saavedra MD at 8:44 EDT , Chest X-Ray 12/22/23 13:30 IMPRESSION: The tip of the left-sided double-lumen catheter is in the right atrium. Electronically Signed: Ronnie Saavedra MD at 13:59 EDT ,
--- NOTE | 2023-12-22 18:33 | NURSING ---
1800 NIH and vitals not done- patient off unit for an MRI
[2023-12-22] MEDS: Insulin Lispro 100 UNIT/ML INSULN.PEN SC (21:37)
[2023-12-22] MEDS: OLANZapine 5 MG/TAB TAB.RAPDIS PO (21:37)
[2023-12-22 22:01] LABS: Bedside Glucose 159 mg/dL (74-106)
[2023-12-23] VITALS (17 sets, daily range): BP systolic 107–202; BP diastolic 56–109; PULSE 62–82; RESP 16–18; TEMP 36.4–37.1; O2SAT 90–99; BMI 27.5; BMI 31.1
[2023-12-23] MEDS: Acetaminophen 325 MG Tablet 650 MG PO ×3 (02:44→22:37)
[2023-12-23] MEDS: Isosorbide DN 20 MG Tablet PO ×3 (05:02→21:14)
[2023-12-23] MEDS: Levothyroxine 25 MCG TABLET PO (05:02)
[2023-12-23] MEDS: Insulin Lispro 100 UNIT/ML INSULN.PEN SC ×3 (06:25→21:12)
[2023-12-23 06:45] LABS: Bedside Glucose 162 mg/dL (74-106)
[2023-12-23] MEDS: oxyCODONE 5 MG Tablet PO ×3 (07:53→23:41)
[2023-12-23] MEDS: Gabapentin 100 MG Capsule PO (07:53)
[2023-12-23] MEDS: PureFlow B 2K Dialysis Soln 1 BAG 6 BAG PF (08:13)
[2023-12-23] MEDS: 0.9% Normal Saline 1,000 ML IV.SOLN. 1000 ML OPERA.SITE (08:13)
[2023-12-23 09:16] LABS: Anion Gap 8 (5-15); BUN 81 mg/dL (7-18); BUN/Creat Ratio 12.7 RATIO (10-20); Calcium,Total 7.6 mg/dL (8.5-10.1); Chloride 108 mmol/L (98-107); Creatinine, Serum 6.36 mg/dL (0.55-1.02); EST Glomerular Filtration Rate 7 mL/min (>60); Est Glom Filt Rate - Afr Amer 9 mL/min (>60); Estimated Creatinine Clearance 10.77 ml/min; Glucose 113 mg/dL (74-106); Potassium 4.3 mmol/L (3.5-5.1); Sodium Level 139 mmol/L (136-145)
[2023-12-23] MEDS: 0.9% Saline Lock 10 ML Syringe IV (12:04)
[2023-12-23] MEDS: Heparin 10,000 UNITS/10 ML Vial 2500 UNITS IV (12:08)
--- NOTE | 2023-12-23 12:44 | CASEMGMT ---
SW and patient's niece Yamel spoke with patient about possibly going to [facility] for rehab at discharge. Patient was resistant stating she got up and went to the bathroom by herself this morning. Patient did not have therapy yesterday as she was getting a procedure and today patient was getting dialysis. LUCRETIA told patient and Yamel LUCRETIA will ask therapy to come back and see patient so we can see how she is doing. All were in agreement with this. SW contacted therapy. Kamilla MCCORD
[2023-12-23] MEDS: Epoetin Alfa epbx 10,000 UNITS/ML 20000 UNIT IV (13:24)
--- NOTE | 2023-12-23 13:25 | PN_ITS ---
Subjective Subjective Patient seen and examined.. SHe was having dialysis. She had no active complaints. Review of systems is otherwise negative. She remains on room air and has remained hemodynamically stable. Objective Data Objective Data Vital Signs: Vital Signs Temp Pulse Resp BP Pulse Ox O2 Del Method O2 Flow Rate 98.7 F 73 16 142/66 H 96 Room Air 2 12/23/23 12:45 12/23/23 12:45 12/23/23 12:45 12/23/23 12:45 12/23/23 12:45 12/23/23 12:45 12/23/23 01:25 Oxygen Flow Rate (L/min) 2 Oxygen Delivery Method Room Air Weight: 194 lb Body Mass Index (BMI) 31.1 Intake & Output: Intake and Output for Last 24 Hours 12/21/23 12/22/23 12/23/23 23:59 23:59 23:59 Intake Total 890 / 890 93.25 / 93.25 Output Total 1090 / 1090 1120 / 1120 1000 / 1000 Balance -200 / -200 -1026.75 / -1026.75 -1000 / -1000 Lab / Micro Data 12/22/23 05:50 12/23/23 08:30 Labs: Laboratory Results - last 24 hr 12/22/23 16:09: POC Glucose 124 H 12/22/23 21:35: POC Glucose 159 H 12/23/23 06:24: POC Glucose 162 H 12/23/23 08:30: Sodium 139, Potassium 4.3, Chloride 108 H, Carbon Dioxide 23.0, Anion Gap 8, BUN 81 H, Creatinine 6.36 H, Estim Creat Clear Calc 10.77, Est GFR (MDRD) Af Amer 9 L, Est GFR (MDRD) Non-Af 7 L, BUN/Creatinine Ratio 12.7, Glucose 113 H, Calcium 7.6 L Micro: Microbiology 12/21/23 14:50 Blood Culture (Wb) - Arm Left Blood Culture - Preliminary No growth in 48 hours. 12/20/23 10:16 Blood Culture (Wb) - Right Hand Blood Culture - Preliminary No growth in 48 hours. 12/19/23 08:44 Blood Culture (Wb) - Right Hand Blood Culture - Preliminary No growth in 48 hours. 12/19/23 09:00 Blood Culture (Wb) - Dialysis/Fistula Blood Culture - Preliminary No growth in 48 hours. 12/16/23 14:24 Blood Culture (Wb) - Anticubital Right Blood Culture - Final Staphylococcus aureus 12/16/23 14:45 Blood Culture (Wb) - Left Hand Blood Culture - Final Staphylococcus aureus 12/16/23 14:33 Urine, Catheterized Urine Culture - Final Culture exhibits no growth. 12/16/23 14:24 Mucosa - Nasopharyngeal SARS-CoV-2, Influenza & RSV (PCR) - Final Radiography Diagnostic Testing: Radiology Impression Brain MRI 12/22/23 12:40 IMPRESSION: 1. Moderate-sized area of subacute nonhemorrhagic infarct in the RIGHT hemisphere involving the posterior RIGHT frontal, parietal lobe, and extending into the posterior insula. Mild involvement with the superior temporal gyrus. Pattern and distribution are consistent with the previous hypodense area/infarct on CTA examination. No change in size or distribution. Findings are consistent with a inferior RIGHT M2/MCA infarct. 2. No evidence of petechial transformation or hemorrhage. 3. Chronic deep white matter disease and areas remote lacunar infarct in the hemispheric white matter, an area of remote infarct and encephalomalacic area in the RIGHT occipital pole. Electronically Signed: Scot Aldrich MD at 22:09 EDT , Chest X-Ray 12/22/23 13:30 IMPRESSION: The tip of the left-sided double-lumen catheter is in the right atrium. Electronically Signed: Ronnie Saavedra MD at 13:59 EDT , Physical Exam Const alert, oriented x3 and no apparent distress Constitutional Narrative: frail General Appearance: cooperative HEENT normocephalic, head/scalp atraumatic and moist oral mucous membranes Eyes PERRL and EOMs intact bilaterally Neck no lymphadenopathy and supple Lymph Lymphatic: no lymphadenopathy noted and no lymphedema noted Resp Resp Narrative: diinished breath sounds bibasally, no wheezes or crackles. on room air. Cardio regular rate, regular rhythm, S1 normal heart sound, S2 normal heart sound and no murmurs GI normal to inspection, nondistended, normoactive bowel sounds, soft to palpation, non-tender and non-distended Extremity normal capillary refill, no clubbing, cyanosis or edema and no calf tenderness Extremity Narrative: intact dressing over dialysis catheter site General Extremity: no tenderness to palpation of joints or extremities Skin Skin Narrative: intact dressing over dialysis catheter site General Skin Exam: no breakdown Neuro CN's II-XII intact bilaterally, no focal motor deficits and no sensory deficits noted Motor Exam: strength 5/5 throughout and general weakness Psych thought process normal, cooperative and affect normal Psych Narrative: lethargic Appearance: appropriate Mood & Affect: flat affect Assessment & Plan Assessment/Plan (1) UTI (urinary tract infection): (2) ESRD on hemodialysis: PLAN: Plan #Acute encephalopathy, likely due to UTI and Staph bacteremia * blood cultures positive for staph aureus * ID on board * on IV vancomycin and cefepime, per ID * 2D echo showed no evidence of vegetation. * dialysis catheter removed * HONG also negative for any evidence of a stroke * #Subacute ischemic CVA * Found to have new left-sided weakness and slurred speech and some facial droop. CT of the brain done as stated above showed right ischemic infarct in the right MCA territory which appears to be subacute. This was new compared to previous CT of the brain from October 2023. * HONG done was negative for stroke. * plavix resumed today and aspirin ordered * neurology on board. * MRI brain showed moderate sized area of subacute nonhemorrhagic infarct i the right hemisphere involving the posterior and right frontal, parietal obe and extending into the posterior insula. * CTA head and neck showed calcified plaque at the origin of the right internal carotid artery causing between 50 to 69% stenosis as well as less than 50% narrowing at the origin of the left internal carotid artery. * 2D echo as above. * neurology on board * PT/OT on board * fall precautions * Vascular surgery consulted. * * #Carotid stenosis * CTA head and neck as above showed calcified plaque at the origin of the right internal carotid artery causing between 50 to 69% stenosis as well as less than 50% narrowing at the origin of the left internal carotid artery. * vascular surgery consulted and recommends medical management with aspirin, plavix and high intensity statin. * carotid USG ordered per vascular surgery as I think it was felt there was poor contrast timing and right ICA appears 45% stenosed. * #Staph bacteremia: as above #Acute on chronic anemia of chronic disease * Hb today is still 7.1. she was transfused with one unit of PRBC during this admission. * likely due to ESRD * transfuse if Hb <7 * #Thrombocytopenia * resolved. * #ESRD. * on HD. Nephrology on board. * On dialysis MWF. Dialysis catheter removed due to staph bacteremia. * Temporary dialysis catheter tp be inserted by general surgery tomorrow * # Hyperlipidemia: On statin #Type 2 diabetes mellitus: On Lantus 5 units daily. Insulin Sliding scale. Accu-Cheks ACHS. #Hypothyroidism: On Synthroid. #Depression: olanzapine DVT prophylaxis; SCDs o/a of acute on chronic anemia Disposition: awaiting placement Charges/Coding Visit Charges Inpatient E&M: 05975 Subs Hosp L2
--- NOTE | 2023-12-23 13:33 | CASEMGMT ---
KELSIE IRELAND NOTE: Call placed to [facility] and spoke w/Fidelina. She was made aware pt will be discharging to [facility] and will receiving HD on-site there w/[facility] and will not be returning to [facility] for OP HD. Delta LEEN KELSIE CM
[2023-12-23] MEDS: Calcium Acetate 667 MG Capsule PO ×2 (13:35→17:42)
[2023-12-23] MEDS: hydrALAZINE 25 MG Tablet PO ×2 (13:36→17:43)
[2023-12-23] MEDS: Calcitriol 0.25 MCG Capsule 0.5 MCG PO (13:36)
[2023-12-23] MEDS: amLODIPine 5 MG Tablet PO (13:36)
[2023-12-23] MEDS: Atorvastatin Calcium 20 MG Tablet PO (13:37)
[2023-12-23] MEDS: Pramipexole Di-HCl 1 MG Tablet 1.5 MG PO ×2 (13:37→21:11)
[2023-12-23] MEDS: Paroxetine 20 MG Tablet PO (13:37)
[2023-12-23] MEDS: Folic Acid 1 MG Tablet PO (13:37)
[2023-12-23] MEDS: Ascorbic Acid 500 MG Tablet PO ×2 (13:37→21:15)
--- NOTE | 2023-12-23 13:46 | CASEMGMT ---
Therapy saw patient and patient's niece Yamel was present. After patient finished therapy patient and Yamel agreed patient will go to [facility] for rehab. SW spoke with patient letting her know [facility] has dialysis, but she would need to switch to [facility]. Patient was in agreement with this. SW notified [facility] and asked that they start pre-cert. SW also called [facility] and notified [facility] that patient will be going to [facility]. Plan: d/c to [facility] pending pre-cert. Kamilla MCCORD
--- NOTE | 2023-12-23 14:01 | CASEMGMT ---
Discharge Planning Updates sent to [facility] Rekha Moore, Discharge Planning Asst.
--- NOTE | 2023-12-23 15:23 | PCM.PN.REN ---
Subjective Subjective No new events Objective Data Objective Data Vital Signs: Vital Signs Temp Pulse Resp BP Pulse Ox O2 Del Method O2 Flow Rate 98.7 F 73 16 142/66 H 96 Room Air 2 12/23/23 12:45 12/23/23 13:36 12/23/23 12:45 12/23/23 13:36 12/23/23 12:45 12/23/23 12:45 12/23/23 01:25 Oxygen Flow Rate (L/min) 2 Oxygen Delivery Method Room Air Weight: 87.997 kg Body Mass Index (BMI) 31.1 Intake & Output: Intake and Output for Last 24 Hours 12/21/23 12/22/23 12/23/23 23:59 23:59 23:59 Intake Total 890 / 890 93.25 / 93.25 380 / 380 Output Total 1090 / 1090 1120 / 1120 1000 / 1000 Balance -200 / -200 -1026.75 / -1026.75 -620 / -620 Lab / Micro Data 12/22/23 05:50 12/23/23 08:30 Labs: Laboratory Results - last 24 hr 12/22/23 16:09: POC Glucose 124 H 12/22/23 21:35: POC Glucose 159 H 12/23/23 06:24: POC Glucose 162 H 12/23/23 08:30: Sodium 139, Potassium 4.3, Chloride 108 H, Carbon Dioxide 23.0, Anion Gap 8, BUN 81 H, Creatinine 6.36 H, Estim Creat Clear Calc 10.77, Est GFR (MDRD) Af Amer 9 L, Est GFR (MDRD) Non-Af 7 L, BUN/Creatinine Ratio 12.7, Glucose 113 H, Calcium 7.6 L Micro: Microbiology 12/21/23 14:50 Blood Culture (Wb) - Arm Left Blood Culture - Preliminary No growth in 48 hours. 12/20/23 10:16 Blood Culture (Wb) - Right Hand Blood Culture - Preliminary No growth in 48 hours. 12/19/23 08:44 Blood Culture (Wb) - Right Hand Blood Culture - Preliminary No growth in 48 hours. 12/19/23 09:00 Blood Culture (Wb) - Dialysis/Fistula Blood Culture - Preliminary No growth in 48 hours. 12/16/23 14:24 Blood Culture (Wb) - Anticubital Right Blood Culture - Final Staphylococcus aureus 12/16/23 14:45 Blood Culture (Wb) - Left Hand Blood Culture - Final Staphylococcus aureus 12/16/23 14:33 Urine, Catheterized Urine Culture - Final Culture exhibits no growth. 12/16/23 14:24 Mucosa - Nasopharyngeal SARS-CoV-2, Influenza & RSV (PCR) - Final Radiography Diagnostic Testing: Radiology Impression Brain MRI 12/22/23 12:40 IMPRESSION: 1. Moderate-sized area of subacute nonhemorrhagic infarct in the RIGHT hemisphere involving the posterior RIGHT frontal, parietal lobe, and extending into the posterior insula. Mild involvement with the superior temporal gyrus. Pattern and distribution are consistent with the previous hypodense area/infarct on CTA examination. No change in size or distribution. Findings are consistent with a inferior RIGHT M2/MCA infarct. 2. No evidence of petechial transformation or hemorrhage. 3. Chronic deep white matter disease and areas remote lacunar infarct in the hemispheric white matter, an area of remote infarct and encephalomalacic area in the RIGHT occipital pole. Electronically Signed: Scot Aldrich MD at 22:09 EDT , Chest X-Ray 12/22/23 13:30 IMPRESSION: The tip of the left-sided double-lumen catheter is in the right atrium. Electronically Signed: Ronnie Saavedra MD at 13:59 EDT , Physical Exam Narrative no apparent distress S1, S2, RRR Lung sounds clear Abdomen soft, nontender No pitting edema Left mid arm AV fistula positive thrill and bruit Assessment & Plan Assessment/Plan (1) ESRD on hemodialysis: (2) Encephalopathy: (3) UTI (urinary tract infection): PLAN: Plan - ESRD on hemodialysis Tuesday at [facility] followed by Dr. Flynn. Dialysis today -Acute metabolic encephalopathy felt to be secondary to Staph aureus bacteremia, New onset stroke. Staph bacteremia. Right IJ dialysis catheter removed. She has a left arm brachiocephalic fistula but it appears fairly deep. She says the dialysis unit could not get fistula because it was too deep. She says that the surgeon in [place] placed the fistula but was not remember the name. she is in the process of switching to the peritoneal dialysis. Repeat blood cultures are negative. New dialysis catheter to be placed. For now we will maintain Tuesday, Tuesday, Tuesday schedule.
[2023-12-23] MEDS: Cefepime HCl 1 GM in 0.9% Normal Saline (50mL MB+) 50 ML IV (15:26)
[2023-12-23] MEDS: Aspirin 81 MG TAB.CHEW PO (15:30)
[2023-12-23] MEDS: buPROPion (XL) 150 MG TABLET.XL PO (15:30)
--- NOTE | 2023-12-23 17:38 | NEURO.CONS ---
Assessment and Plan: Neuro Assessment/Plan DIONY ROCHA is a 58 F with MSSA bacteremia who developed left sided weakness, facial droop found to have acute R MCA ischemic stroke. Teleneurology was consulted. Diagnosis: Acute R MCA ischemic stroke - CTA concerning for intracranial atherosclerotic disease in bilateral MCA territories. Plan: 1. Agree with maximize medical management with antiplatelets and high intensity statin 2. Normotension is the goal, LDL level (goal <70), A1c with strictly control blood sugar 3. HONG was obtained in the setting of bacteremia and stroke which did not reveal vegetation, CTA with no evidence of mycotic aneurysms 4. 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 Stroke education and vascular risk factor modification, keep on tele while inpatient 6. Follow up in Stroke clinic 4-6 weeks after discharge I personally attended this patient and spent a total time of 71 minutes evaluating this patient including clinical assessment, review of chart, medical history imaging, and determining appropriate treatment and workup. HPI Consult Data Date of Consult: 12/23/23 HPI Narrative HPI Narrative: DIONY ROCHA, is a 58 F who initially presented on 12/16/23 with an episode of unresponsiveness in the dialysis unit, patient was admitted for fever and dysuria. She was managed for MSSA bacteremia (suspect from permacath) with concerns of endocarditis, ID following and line removed. TTE with no vegetation seen . On 12/19 she was noted have left sided weakness, dysarthria and L facial droop. CTH revealed recent R MCA ischemic stroke in addition to old infract, CTA with R ICA stenosis and intracranial bilateral MCA atherosclerosis with concerns for distal R M2 occlusion. 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 [facility], [facility] Medical History Acquired varus deformity of left foot Acquired varus deformity of right foot Acute lumbar radiculopathy Acute on chronic anemia Adult failure to thrive Amputation foot, bilat Anemia due to chronic illness Anemia in chronic illness Anxiety and depression Atherosclerosis of [place] coronary artery of [place] heart without angina pectoris Back pain, chronic Bilateral edema of lower extremity Cellulitis Cellulitis of both lower extremities Charcot's joint of right foot Charcot's joint, left ankle and foot Charcot's joint, right ankle and foot Chronic foot pain Chronic kidney disease, stage 3b Chronic kidney disease, stage 4 (severe) Chronic renal disease, stage 4, severely decreased glomerular filtration rate (GFR) between 15-29 mL/min/1.73 square meter Chronic renal insufficiency Chronic ulcer of left foot with fat layer exposed 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 Chronic ulcer of right foot with fat layer exposed Chronic ulcer of right foot with necrosis of bone Chronic ulcer of right foot with necrosis of muscle Chronic ulcer of right leg with fat layer exposed COVID-19 (08/28/21) CRF (chronic renal failure) Debility Delayed wound healing Diabetes Diabetes mellitus with diabetic polyneuropathy Diabetic foot ulcer associated with type 2 diabetes mellitus Diabetic foot ulcers Diabetic infection of left foot Diabetic polyneuropathy Diabetic ulcer of right ankle Elevated troponin End stage renal disease Essential (primary) hypertension Essential hypertension Foot osteomyelitis, left GERD (gastroesophageal reflux disease) Hemoglobin A1c greater than 9.0% HLD (hyperlipidemia) Hyperparathyroidism, secondary renal Hypertension Iron deficiency anemia Ischemic cardiomyopathy Myocardial infarct Non-compliance Non-pressure chronic ulcer of other part of left foot with fat layer exposed Non-pressure chronic 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 layer exposed Non-smoker Normocytic anemia NSTEMI (non-ST elevated myocardial infarction) (09/20/18) Obesity (BMI 30.0-34.9) Osteomyelitis Osteomyelitis of left foot Osteomyelitis of metatarsal RLS (restless legs syndrome) Stage 4 chronic kidney disease TIA (transient ischemic attack) Type 2 diabetes mellitus 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 Ulcer of left foot with fat layer exposed Ulcer of left foot with muscle involvement without evidence of necrosis Ulcer of left foot with necrosis of muscle Ulcer of right lower extremity with fat layer exposed Home Medications paroxetine HCl 20 mg tablet 20 mg PO DAILY DEPRESSION 07/07/21 [History Last Taken 04/07/22] bupropion HCl 150 mg 24 hr tablet, extended release 150 mg PO DAILY mood 02/04/22 [History Last Taken 04/07/22] sennosides 8.6 mg-docusate sodium 50 mg tablet (Stool Softener-Stimulant Laxative) 2 tab PO BID PRN PRN Constipation #0 tabs 04/24/22 [Rx Last Taken Unknown] ascorbic acid (vitamin C) 500 mg tablet (Vitamin C) 500 mg PO BID supplement 05/05/22 [History Last Taken Unknown] clopidogrel 75 mg tablet 75 mg PO DAILY prevent stroke 10/10/22 [History Last Taken Unknown] ferrous sulfate 325 mg (65 mg iron) tablet 325 mg PO .three times a week anemia 07/19/22 [History Last Taken Unknown] pantoprazole 40 mg tablet,delayed release 40 mg PO BIDCM GERD 07/19/22 [History Last Taken Unknown] insulin glargine-yfgn 100 unit/mL (3 mL) subcutaneous pen 5 unit (0.05 mL) subcut QHS blood sugar #15 mL 07/21/22 [Rx Last Taken Unknown] insulin lispro 100 unit/mL subcutaneous pen (Humalog KwikPen (U-100) Insulin) See Protocol subcut TIDAC #0 mL 07/21/22 [Rx Last Taken Unknown] cyclobenzaprine 5 mg tablet 5 mg PO TID PRN muscle spasm #21 tabs 11/26/23 [Rx Last Taken Unknown] gabapentin 100 mg capsule 100 mg PO .COMPLEX PRN pain 11/26/23 [History Last Taken Unknown] Mircera See Rx Instructions .Route .COMPLEX dialysis 12/16/23 [History Last Taken Unknown] Venofer iron 12/16/23 [History Last Taken Unknown] acetaminophen 325 mg capsule 325 mg PO Q4H PRN fever or pain 12/16/23 [History Last Taken Unknown] amlodipine 5 mg tablet 5 mg PO DAILY bp 12/16/23 [History Last Taken Unknown] antacid extra assorted fruit tablets 750 mg PO .every 4 hours PRN tums 12/16/23 [History Last Taken Unknown] atorvastatin 20 mg tablet 20 mg PO DAILY cholestrol 12/16/23 [History Last Taken Unknown] calcitriol 0.5 mcg capsule 0.5 mcg PO .COMPLEX on dialysis 12/16/23 [History Last Taken Unknown] calcium acetate(phosphat bind) 667 mg capsule 676 mg PO TID is on dialysis 12/16/23 [History Last Taken Unknown] carvedilol 12.5 mg tablet 12.5 mg PO BID heart and bp 12/16/23 [History Last Taken Unknown] cloNIDine See Rx Instructions .Route .COMPLEX dialysis 12/16/23 [History Last Taken Unknown] diphenhydramine 25 mg IV itching 12/16/23 [History Last Taken Unknown] folic acid 800 mcg tablet 0.8 mg PO DAILY supplement 12/16/23 [History Last Taken Unknown] hydralazine 25 mg tablet 25 mg PO TID bp 12/16/23 [History Last Taken Unknown] insulin aspart U-100 6 unit subcut TID blood glucose 12/16/23 [History Last Taken Unknown] insulin aspart U-100 100 unit/mL (3 mL) subcutaneous pen subcut 12/16/23 [History Last Taken Unknown] insulin glargine 100 unit/mL (3 mL) subcutaneous pen (Lantus Solostar U-100 Insulin) 20 unit subcut DAILY blood glucose 12/16/23 [History Last Taken Unknown] isosorbide dinitrate 10 mg tablet 20 mg PO TID bp and heart 12/16/23 [History Last Taken Unknown] levothyroxine 25 mcg tablet 25 mcg PO DAILY thyroid 12/16/23 [History Last Taken Unknown] lidocaine-silicone, adhesive topical pain 12/16/23 [History Last Taken Unknown] loperamide 2 mg capsule (Anti-Diarrheal (loperamide)) 2 mg PO Q4H PRN loose stool 12/16/23 [History Last Taken Unknown] melatonin 5 mg capsule 5 mg PO .bedtime sleep 12/16/23 [History Last Taken Unknown] nitroglycerin 0.4 mg sublingual tablet (Nitrostat) 0.4 mg sublingual Q5M chest pain 12/16/23 [History Last Taken Unknown] olanzapine 5 mg tablet 5 mg PO QHS sleep 12/16/23 [History Last Taken Unknown] ondansetron 4 mg disintegrating tablet 4 mg PO DAILY PRN nausea and vomiting 12/16/23 [History Last Taken Unknown] oxycodone-acetaminophen 5 mg-325 mg tablet 1 tab PO Q6H PRN pain 12/16/23 [History Last Taken Unknown] pramipexole dihydrochloride 1.5 mg PO BID unknown 12/16/23 [History Last Taken Unknown] promethazine 25 mg tablet 25 mg PO Q4H PRN nausea and vomiting 12/16/23 [History Last Taken Unknown] cefepime 1 gram solution for injection 2 g IV Q24 40 days #17 ea 12/22/23 [Rx Last Taken Unknown] Allergy/AdvReac Type Severity Reaction Status Date / Time Penicillins Allergy swelling Verified 12/16/23 13:24 in throat vancomycin Allergy Itching Verified 12/16/23 13:24 metronidazole AdvReac Nausea Verified 12/16/23 13:24 oxycodone [From OxyContin] AdvReac Shortness Verified 12/16/23 13:24 of breath Family History Mother Diabetes CVA (cerebral vascular accident) Brother CAD (coronary artery disease) CABG X 3 Cancer testicular Diabetes Brother CAD (coronary artery disease) CABG X3 Diabetes Brother CAD (coronary artery disease) Stents Diabetes Sister CAD (coronary artery disease) CABG x 3 CVA (cerebral vascular accident) Diabetes Surgical History History of bilateral carpal tunnel release History of History of coronary artery stent placement (12/31/20) History of foot surgery History of rotator cuff surgery Social History household members: none number of children: 2 current occupational status: disabled Smoking Status: Never smoker alcohol intake: never substance use type: does not use caffeine: Yes Type: carbonated beverages Number of servings: 2 Vital Signs Vital Signs Vital Signs: 12/22/23 17:42 12/22/23 19:12 12/22/23 21:30 Temperature 97.5 F L 97.6 F L Temperature Source Oral Temporal Pulse Rate 69 70 71 Pulse Strength Respiratory Rate 18 16 Respiratory Effort Respiratory Depth Respiratory Pattern Blood Pressure 123/74 H 117/63 128/67 H Blood Pressure Mean 81 87 Blood Pressure Source Blood Pressure Position Blood Pressure Location Pulse Ox 94 94 Oxygen Delivery Method Room Air Room Air Oxygen Flow Rate (L/min) 12/22/23 21:30 12/22/23 22:00 12/23/23 01:00 Temperature 97.6 F L 97.8 F Temperature Source Temporal Temporal Pulse Rate 711 H 73 Pulse Strength Respiratory Rate 16 18 Respiratory Effort Normal Non-Labored Respiratory Depth Normal Respiratory Pattern Normal Blood Pressure 128/67 H 128/63 H Blood Pressure Mean 87 84 Blood Pressure Source Blood Pressure Position Blood Pressure Location Pulse Ox 94 94 Oxygen Delivery Method Room Air Room Air Nasal Cannula Oxygen Flow Rate (L/min) 2 12/23/23 01:25 12/23/23 05:00 12/23/23 08:05 Temperature 97.8 F 97.5 F L Temperature Source Temporal Oral Pulse Rate 82 73 Pulse Strength Respiratory Rate 18 18 Respiratory Effort Normal Non-Labored Normal Non-Labored Respiratory Depth Normal Normal Respiratory Pattern Normal Normal Blood Pressure 126/61 H 121/109 H Blood Pressure Mean 82 113 Blood Pressure Source Monitor Blood Pressure Position Semi-Fowlers Blood Pressure Location Right Arm Pulse Ox 94 99 Oxygen Delivery Method Nasal Cannula Room Air Room Air Oxygen Flow Rate (L/min) 2 12/23/23 08:28 12/23/23 08:40 12/23/23 09:10 Temperature Temperature Source Pulse Rate 67 66 Pulse Strength Respiratory Rate 16 18 Respiratory Effort Respiratory Depth Respiratory Pattern Blood Pressure 118/60 120/57 L Blood Pressure Mean 79 78 Blood Pressure Source Monitor Monitor Blood Pressure Position Semi-Fowlers Semi-Fowlers Blood Pressure Location Right Arm Right Arm Pulse Ox 94 96 95 Oxygen Delivery Method Room Air Room Air Room Air Oxygen Flow Rate (L/min) 12/23/23 09:40 12/23/23 10:10 12/23/23 09:00 Temperature 98.5 F Temperature Source Axillary Pulse Rate 62 68 62 Pulse Strength Respiratory Rate 18 16 16 Respiratory Effort Respiratory Depth Respiratory Pattern Blood Pressure 119/68 113/64 119/68 Blood Pressure Mean 85 80 85 Blood Pressure Source Monitor Monitor Monitor Blood Pressure Position Semi-Fowlers Semi-Fowlers Semi-Fowlers Blood Pressure Location Right Arm Right Arm Right Arm Pulse Ox 90 96 92 Oxygen Delivery Method Room Air Room Air Room Air Oxygen Flow Rate (L/min) 12/23/23 09:38 12/23/23 10:40 12/23/23 11:10 Temperature Temperature Source Pulse Rate 64 62 Pulse Strength Respiratory Rate 16 16 Respiratory Effort Normal Non-Labored Respiratory Depth Normal Respiratory Pattern Normal Blood Pressure 128/61 H 125/59 H Blood Pressure Mean 83 81 Blood Pressure Source Monitor Monitor Blood Pressure Position Semi-Fowlers Semi-Fowlers Blood Pressure Location Right Arm Right Arm Pulse Ox 94 91 Oxygen Delivery Method Room Air Room Air Room Air Oxygen Flow Rate (L/min) 12/23/23 11:40 12/23/23 10:00 12/23/23 12:45 Temperature 98.7 F Temperature Source Oral Pulse Rate 67 73 Pulse Strength Normal (2+) Respiratory Rate 16 16 Respiratory Effort Normal Non-Labored Respiratory Depth Normal Respiratory Pattern Normal Blood Pressure 142/66 H 142/66 H Blood Pressure Mean 91 91 Blood Pressure Source Monitor Monitor Blood Pressure Position Semi-Fowlers Sitting Blood Pressure Location Right Arm Right Arm Pulse Ox 95 96 Oxygen Delivery Method Room Air Room Air Oxygen Flow Rate (L/min) 12/23/23 13:36 12/23/23 16:45 12/23/23 14:00 Temperature 98.1 F Temperature Source Oral Pulse Rate 73 76 Pulse Strength Respiratory Rate 16 Respiratory Effort Normal Non-Labored Respiratory Depth Normal Respiratory Pattern Normal Blood Pressure 142/66 H 123/56 H Blood Pressure Mean 78 Blood Pressure Source Monitor Blood Pressure Position Sitting Blood Pressure Location Right Arm Pulse Ox 95 Oxygen Delivery Method Room Air Room Air Oxygen Flow Rate (L/min) Weight Weight: 87.997 kg Body Mass Index (BMI) 31.1 NIHSS NIHSS Nursing Documentation NIHSS Nursing Documentation: NIHSS: Ischemic Stroke/TIA Start: 12/20/23 16:01 Text: For PCU Patients: NIH and Neuro Check every 4 Status: Active hours and PRN Freq: [id number] Protocol: Activity Type Activity Date Activity User E-sign Co-sign Detail Recorded Client Recorded Date Recorded By Document 12/23/23 16:45 Desktop 12/23/23 17:35 12/23/23 16:45 NIH Stroke Scale [NIHSS] A score of 0 is normal or asymptomatic . Total possible score is 42. Inpatient: RN or Physician to activate a stroke alert for onset of new stroke symptoms or with NIHSS increase >/= 3 points. Following change in neurological status, NIHSS will be performed per physician order or more frequently PRN. -1a. Level of Consciousness Alert; keenly responsive -1b. LOC Questions Answers BOTH questions correctly. -1c. LOC Commands Performs both tasks correctly . -2. Best Gaze Normal -3. Visual Partial hemianopia -4. Facial Palsy Minor paralysis (flattened nasolabial fold , asymmetry on smiling) -5a. Left Arm Drift; arm drifts downward but doesn?t hit the bed -5b. Right Arm No drift; arm holds 90 (or 45 ) degrees for full 10 seconds -6a. Left Leg No drift; leg holds 30-degree position for full 5 seconds -6b. Right Leg No drift; leg holds 30-degree position for full 5 seconds -7. Limb Ataxia Absent -8. Sensory Severe to total sensory loss; -9. Best Language No aphasia; normal -10. Dysarthria Normal -11. Extinction and Inattention No abnormality -Total 5 Query Text:A score of 0 is normal or asymptomatic. Total possible score is 42 . ED: Notify Physician for NIHSS increase by > / = 3 points. Inpatient: RN or Physician to activate a stroke alert for NIHSS increase of > / = 3 points. Coma Scale [Assess] -Eye Opening Spontaneous -Motor Obeys Commands -Verbal Oriented [Total] -Coma Scale Total 15 NIHSS 1a. Level of Consciousness: Alert; keenly responsive 1c. LOC Commands: Performs both tasks correctly. 2. Best Gaze: Normal 3. Visual: Partial hemianopia 4. Facial Palsy: Minor paralysis (flattened nasolabial fold, asymmetry on smiling) 5a. Left Arm: Drift; arm drifts downward but doesn?t hit the bed 5b. Right Arm: No drift; arm holds 90 (or 45) degrees for full 10 seconds 6a. Left Leg: Drift; leg falls by the end of 5-seconds, but does not hit bed 6b. Right Leg: No drift; leg holds 30-degree position for full 5 seconds 7. Limb Ataxia: Absent 8. Sensory: [id number] sensory loss; 9. Best Language: No aphasia; normal 10. Dysarthria: [id number] dysarthria; 11. Extinction and Inattention: No abnormality Total: 6 Physical Exam Narrative Patient is awake and alert, follows commands, EOMI, mild dysarthria, mid asymmetric face, LUE/LLE drift, no drift on the R, reduced sensation to LT on the left, partial hemianopsia, no ataxia, no aphasia Lab / Micro Data 12/22/23 05:50 12/23/23 08:30 Labs: Laboratory Results - last 24 hr 12/22/23 21:35: POC Glucose 159 H 12/23/23 06:24: POC Glucose 162 H 12/23/23 08:30: Sodium 139, Potassium 4.3, Chloride 108 H, Carbon Dioxide 23.0, Anion Gap 8, BUN 81 H, Creatinine 6.36 H, Estim Creat Clear Calc 10.77, Est GFR (MDRD) Af Amer 9 L, Est GFR (MDRD) Non-Af 7 L, BUN/Creatinine Ratio 12.7, Glucose 113 H, Calcium 7.6 L Micro: Microbiology 12/21/23 14:50 Blood Culture (Wb) - Arm Left Blood Culture - Preliminary No growth in 48 hours. Imaging Radiology Impression Brain MRI 12/22/23 12:40 IMPRESSION: 1. Moderate-sized area of subacute nonhemorrhagic infarct in the RIGHT hemisphere involving the posterior RIGHT frontal, parietal lobe, and extending into the posterior insula. Mild involvement with the superior temporal gyrus. Pattern and distribution are consistent with the previous hypodense area/infarct on CTA examination. No change in size or distribution. Findings are consistent with a inferior RIGHT M2/MCA infarct. 2. No evidence of petechial transformation or hemorrhage. 3. Chronic deep white matter disease and areas remote lacunar infarct in the hemispheric white matter, an area of remote infarct and encephalomalacic area in the RIGHT occipital pole. Electronically Signed: Scot Aldrich MD at 22:09 EDT , Active Medications Active Medications Active Medications: Current Medications Generic Name Dose Route Start Last Admin Trade Name Freq PRN Reason Stop Dose Admin Acetaminophen 650 mg 12/16/23 22:07 12/23/23 02:44 Acetaminophen 325 Mg Tablet PO 650 mg Q4H PRN PRN Administration Pain 1-10 Or Fever >100.7 Acetaminophen 650 mg 12/16/23 22:04 12/17/23 04:19 Acetaminophen 650 Mg Suppository RC 650 mg Q4H PRN PRN Administration Fever, pain 1-10 Amlodipine Besylate 5 mg 12/18/23 10:00 12/23/23 13:36 Amlodipine 5 Mg Tablet PO 5 mg DAILY TAB Administration Protocol Ascorbic Acid 500 mg 12/19/23 22:00 12/23/23 13:37 Ascorbic Acid 500 Mg Tablet PO 500 mg BID TAB Administration Aspirin 81 mg 12/23/23 11:30 12/23/23 15:30 Aspirin 81 Mg Tab.Chew PO 81 mg BREAKFAST TAB Administration Atorvastatin Calcium 20 mg 12/18/23 10:00 12/23/23 13:37 Atorvastatin Calcium 20 Mg Tablet PO 20 mg DAILY TAB Administration Bupropion HCl 150 mg 12/20/23 10:00 12/23/23 15:30 Bupropion (Xl) 150 Mg Tablet.Xl PO 150 mg DAILY TAB Administration Calamine/Phenol 1 applic 12/18/23 10:00 12/23/23 13:30 Menthol/Lanolin/Calamine/Znox 113 Gm Tube TOPICAL Not Given BID [facility] Protocol Calcitriol 0.5 mcg 12/19/23 10:00 12/23/23 13:36 Calcitriol 0.25 Mcg Capsule PO 0.5 mcg [id number]@1000 TAB Administration Calcium Acetate 667 mg 12/17/23 12:00 12/23/23 13:35 Calcium Acetate 667 Mg Capsule PO 667 mg TIDCM TAB Administration Carvedilol 12.5 mg 12/17/23 17:00 12/23/23 13:30 Carvedilol 12.5 Mg Tablet PO Not Given BIDCM [facility] Protocol Clopidogrel Bisulfate 75 mg 12/18/23 10:00 12/21/23 08:39 Clopidogrel Bisulfate 75 Mg Tablet PO 75 mg DAILY TAB Administration Cyclobenzaprine HCl 5 mg 12/19/23 10:45 Cyclobenzaprine Hcl 5 Mg Tablet PO TID PRN PRN muscle spasm Dextrose 0 gm 12/16/23 22:05 Dextrose 50%-Water 25 Gm/50 Ml Disp.Syrin IV X1 PRN Hypoglycemia Protocol Ferrous Sulfate 325 mg 12/17/23 12:00 12/22/23 14:41 Ferrous Sulfate 325 Mg Tablet PO 325 mg [id number]@1200 [facility] Administration Folic Acid 1 mg 12/20/23 08:00 12/23/23 13:37 Folic Acid 1 Mg Tablet PO 1 mg BREAKFAST TAB Administration Gabapentin 100 mg 12/17/23 10:46 12/23/23 07:53 Gabapentin 100 Mg Capsule PO 100 mg [id number]@1000 PRN Administration Pain Score 1-10 Glucagon 1 mg 12/16/23 22:05 Glucagon 1 Mg/Ml Syringe IM X1 PRN Hypoglycemia Hemodialysis Solution 6 bag 12/23/23 07:15 12/23/23 08:13 Pureflow B 2k Dialysis Soln 1 Bag PF 12/23/23 19:07 5 bag UD [facility] Administration Protocol Heparin Sodium (Porcine) 2,500 units 12/16/23 20:45 12/23/23 12:08 Heparin 10,000 Units/10 Ml Vial IV 2,500 units UD PRN Administration Dialysis Cath Heparin Flush Heparin Sodium (Porcine) 1,000 - 3,000 units 12/23/23 07:06 Heparin 10,000 Units/10 Ml Vial IV 12/23/23 19:06 X1 PRN HD catheter closing Hydralazine HCl 10 mg 12/16/23 22:05 Hydralazine 20 Mg/Ml Vial IV Q4H PRN PRN SBP > 160 Protocol Hydralazine HCl 25 mg 12/17/23 12:00 12/23/23 13:36 Hydralazine 25 Mg Tablet PO 25 mg TIDCM [facility] Administration Protocol Cefepime HCl 1 gm/ Sodium 50 mls @ 100 mls/hr 12/20/23 14:00 12/23/23 16:47 Chloride IV Infused Q24 [facility] Infusion Sodium Chloride 1,000 mls @ 15 mls/hr 12/22/23 11:55 12/22/23 14:50 IV Infused .Q48H [facility] Infusion Insulin Glargine 20 unit 12/18/23 10:00 12/23/23 13:31 Insulin Glargine-Yfgn 100 Unit/Ml Pen SC Not Given DAILY [facility] Insulin Human Lispro 0 unit 12/17/23 07:00 12/23/23 13:31 Insulin Lispro 100 Unit/Ml Insuln.Pen SC Not Given ACHS [facility] Protocol Isosorbide Dinitrate 20 mg 12/17/23 14:00 12/23/23 15:30 Isosorbide Dn 20 Mg Tablet PO 20 mg TID [facility] Administration Protocol L-Arginine/L-Glutamine/Calcium HMB 1 packet 12/17/23 17:00 12/23/23 13:30 Ted (Unflavored) Packet PO Not Given BIDCM [facility] Levothyroxine Sodium 25 mcg 12/18/23 06:00 12/23/23 05:02 Levothyroxine 25 Mcg Tablet PO 25 mcg DAILY@0600 [facility] Administration Lidocaine 1 patch 12/19/23 11:01 Lidocaine 5% Patch TOPICAL DAILY PRN PRN Pain Score 1-10 Loperamide HCl 2 mg 12/17/23 10:50 Loperamide 2 Mg Capsule PO Q4H PRN PRN loose stool Nitroglycerin 0.4 mg 12/16/23 20:01 Nitroglycerin (Inpatient Use) 0.4 Mg Tab.Subl SL Q5M PRN CARDIAC/CHEST PAIN Olanzapine 5 mg 12/17/23 22:00 12/22/23 21:37 Olanzapine 5 Mg/Tab Tab.Rapdis PO 5 mg QHS TAB Administration Ondansetron HCl 4 mg 12/16/23 20:01 12/21/23 09:05 Ondansetron 4 Mg/2 Ml Vial IV 4 mg Q8H PRN PRN Administration NAUSEA/VOMITING Oxycodone HCl 5 mg 12/19/23 10:54 12/23/23 07:53 Oxycodone 5 Mg Tablet PO 5 mg Q6H PRN PRN Administration Pain Score 6-10 Pantoprazole Sodium 40 mg 12/17/23 17:00 12/23/23 13:30 Pantoprazole Sodium 40 Mg Tablet PO Not Given BIDCM TAB Paroxetine HCl 20 mg 12/18/23 10:00 12/23/23 13:37 Paroxetine 20 Mg Tablet PO 20 mg DAILY TAB Administration Pramipexole Dihydrochloride 1.5 mg 12/19/23 22:00 12/23/23 13:37 Pramipexole Di-Hcl 1 Mg Tablet PO 1.5 mg BID TAB Administration Sodium Chloride 10 ml 12/16/23 20:45 12/23/23 12:04 0.9% Saline Lock 10 Ml Syringe IV 10 ml UD PRN Administration Dialysis Catheter Flush Sodium Chloride 10 - 40 ml 12/16/23 20:45 12/22/23 16:42 0.9% Saline Lock 10 Ml Syringe IV 20 ml UD PRN Administration SALINE FLUSH Sodium Chloride 1,000 ml 12/23/23 07:10 12/23/23 08:13 0.9% Normal Saline 1,000 Ml Iv.Soln. OPERA.SITE 12/23/23 19:06 1,000 ml X1 TAB Administration Sodium Chloride 200 ml 12/23/23 07:06 0.9% Normal Saline 1,000 Ml Iv.Soln. IV 12/23/23 19:06 X1 PRN to maintain SBP >90mmHg during Dialysis
[2023-12-23] MEDS: Pantoprazole Sodium 40 MG Tablet PO (17:42)
[2023-12-23] MEDS: Carvedilol 12.5 MG Tablet PO (17:43)
[2023-12-23 18:51] LABS: Bedside Glucose 176 mg/dL (74-106)
[2023-12-23 18:51] LABS: Bedside Glucose 103 mg/dL (74-106)
[2023-12-23] MEDS: Menthol/Lanolin/Calamine/Znox 113 GM Tube 1 APPLIC TOPICAL (21:11)
[2023-12-23] MEDS: OLANZapine 5 MG/TAB TAB.RAPDIS PO (21:16)
[2023-12-23 23:51] LABS: Bedside Glucose 206 mg/dL (74-106)
[2023-12-24] VITALS (12 sets, daily range): BP systolic 119–127; BP diastolic 51–65; PULSE 62–82; RESP 14–18; TEMP 36.3–36.8; O2SAT 88–98; BMI 31.1
--- NOTE | 2023-12-24 01:20 | NURSING ---
Pt agitated and refusing participate in NIHSS. This RN provided education about importance of stroke assessment, pt still did not want to participate. made aware.
[2023-12-24] MEDS: Levothyroxine 25 MCG TABLET PO (05:18)
[2023-12-24] MEDS: Isosorbide DN 20 MG Tablet PO ×3 (05:18→21:33)
[2023-12-24] MEDS: Acetaminophen 325 MG Tablet 650 MG PO (06:03)
[2023-12-24] MEDS: oxyCODONE 5 MG Tablet PO (06:03)
[2023-12-24 06:13] LABS: Absolute Lymphocyte Count 1.02 X10^3/uL (0.83-4.51); Absolute Neutrophil Count 3.4 X10^3/uL (2.0-7.7); Basophil# 0.02 X10^3/uL; Basophil% 0.4 % (0-1); Eosinophil# 0.23 X10^3/uL; Hematocrit 23.5 % (37-47); Hemoglobin 7.4 g/dL (12.0-15.0); Lymphocyte # 1.02 X10^3/ul (0.83-4.51); Mean Corp Hgb Conc 31.5 g/dL (32-36); Mean Corpuscular Hgb 30.7 pg (27.0-32.0); Mean Corpuscular Volume 97.5 fL (81-99); Mean Platelet Vol. 10.8 fl (6.2-12.0); Monocyte# 0.51 X10^3/uL; NRBC Flagged by Analyzer 0 % (0-5); Neutrophil # 3.43 X10^3/uL (2.7-7.7); Neutrophil % 60.3 % (47-70); POSITIVE COUNT YES; POSITIVE MORPHOLOGY YES; Platelet Count 220 K/mm3 (150-450); RBC Distribution Width CV 15.6 % (11.6-14.6); RBC Distribution Width SD 55.5 fl (35.1-43.9); Red Blood Count 2.41 M/mm3 (4.2-5.4); White Blood Count 5.7 K/mm3 (4.4-11.0)
[2023-12-24 06:19] LABS: Differential Indicated SCAN CRITERIA MET
[2023-12-24 06:41] LABS: Bedside Glucose 118 mg/dL (74-106)
[2023-12-24 08:03] LABS: Differential Comment SCANNED
[2023-12-24] MEDS: Folic Acid 1 MG Tablet PO (09:27)
[2023-12-24] MEDS: Calcium Acetate 667 MG Capsule PO ×3 (09:27→17:15)
[2023-12-24] MEDS: Aspirin 81 MG TAB.CHEW PO (09:27)
[2023-12-24] MEDS: Carvedilol 12.5 MG Tablet PO ×2 (09:28→17:14)
[2023-12-24] MEDS: Atorvastatin Calcium 20 MG Tablet PO (09:28)
[2023-12-24] MEDS: Pramipexole Di-HCl 1 MG Tablet 1.5 MG PO ×2 (09:28→21:33)
[2023-12-24] MEDS: Juven (unflavored) Packet 1 PACKET PO ×2 (09:28→17:15)
[2023-12-24] MEDS: Pantoprazole Sodium 40 MG Tablet PO ×2 (09:29→17:14)
[2023-12-24] MEDS: Ascorbic Acid 500 MG Tablet PO ×2 (09:29→21:33)
[2023-12-24] MEDS: amLODIPine 5 MG Tablet PO (09:31)
[2023-12-24] MEDS: Clopidogrel Bisulfate 75 MG Tablet PO (09:31)
[2023-12-24] MEDS: Paroxetine 20 MG Tablet PO (09:31)
[2023-12-24] MEDS: buPROPion (XL) 150 MG TABLET.XL PO (09:31)
[2023-12-24] MEDS: Insulin Glargine-YFGN 100 UNIT/ML Pen 20 UNIT SC (09:32)
[2023-12-24] MEDS: hydrALAZINE 25 MG Tablet PO ×3 (09:33→17:13)
[2023-12-24] MEDS: Menthol/Lanolin/Calamine/Znox 113 GM Tube 1 APPLIC TOPICAL ×2 (09:37→21:33)
--- NOTE | 2023-12-24 10:40 | PCM.PROGNOTE ---
Subjective Subjective Patient seen and examined. She had no active complaints today. She was alert and communicative. Review of systems otherwise negative. She is awaiting placement. Objective Data Objective Data Vital Signs: Vital Signs Temp Pulse Resp BP Pulse Ox O2 Del Method O2 Flow Rate 98 F 62 15 122/62 H 96 Room Air 2 12/24/23 09:38 12/24/23 09:38 12/24/23 09:38 12/24/23 09:38 12/24/23 09:38 12/24/23 09:38 12/24/23 05:15 Oxygen Flow Rate (L/min) 2 Oxygen Delivery Method Room Air Weight: 194 lb Body Mass Index (BMI) 31.1 Intake & Output: Intake and Output for Last 24 Hours 12/22/23 12/23/23 12/24/23 23:59 23:59 23:59 Intake Total 93.25 / 93.25 930 / 930 60 / 60 Output Total 1120 / 1120 1000 / 1000 Balance -1026.75 / -1026.75 -70 / -70 60 / 60 Lab / Micro Data 12/24/23 05:26 12/23/23 08:30 Labs: Laboratory Results - last 24 hr 12/23/23 13:27: POC Glucose 103 12/23/23 17:33: POC Glucose 176 H 12/23/23 21:05: POC Glucose 206 H 12/24/23 05:26: WBC 5.7, RBC 2.41 L, Hgb 7.4 L, Hct 23.5 L, MCV 97.5, MCH 30.7, MCHC 31.5 L, RDW Std Deviation 55.5 H, RDW Coeff of Fior 15.6 H, Plt Count 220, MPV 10.8, Immature Gran % (Auto) 8.300 H, Neut % (Auto) 60.3, Lymph % (Auto) 18.0 L, [place] % (Auto) 9.0, Eos % (Auto) 4.0, Baso % (Auto) 0.4, Absolute Neuts (auto) 3.4, Absolute Lymphs (auto) 1.02, Nucleated RBC % 0, Differential Comment SCANNED, Diff Path Review February12/24/23 06:10: POC Glucose 118 H Micro: Microbiology 12/21/23 14:50 Blood Culture (Wb) - Arm Left Blood Culture - Preliminary No growth in 48 hours. 12/20/23 10:16 Blood Culture (Wb) - Right Hand Blood Culture - Preliminary No growth in 48 hours. 12/19/23 08:44 Blood Culture (Wb) - Right Hand Blood Culture - Preliminary No growth in 48 hours. 12/19/23 09:00 Blood Culture (Wb) - Dialysis/Fistula Blood Culture - Preliminary No growth in 48 hours. 12/16/23 14:24 Blood Culture (Wb) - Anticubital Right Blood Culture - Final Staphylococcus aureus 12/16/23 14:45 Blood Culture (Wb) - Left Hand Blood Culture - Final Staphylococcus aureus 12/16/23 14:33 Urine, Catheterized Urine Culture - Final Culture exhibits no growth. 12/16/23 14:24 Mucosa - Nasopharyngeal SARS-CoV-2, Influenza & RSV (PCR) - Final Physical Exam Const alert, oriented x3 and no apparent distress Constitutional Narrative: frail General Appearance: cooperative HEENT normocephalic, head/scalp atraumatic and moist oral mucous membranes Eyes PERRL and EOMs intact bilaterally Neck no lymphadenopathy and supple Lymph Lymphatic: no lymphadenopathy noted and no lymphedema noted Resp Resp Narrative: diinished breath sounds bibasally, no wheezes or crackles. on room air. Cardio regular rate, regular rhythm, S1 normal heart sound, S2 normal heart sound and no murmurs GI normal to inspection, nondistended, normoactive bowel sounds, soft to palpation, non-tender and non-distended Extremity normal capillary refill, no clubbing, cyanosis or edema and no calf tenderness Extremity Narrative: intact dressing over dialysis catheter site General Extremity: no tenderness to palpation of joints or extremities Skin Skin Narrative: temporary dialysis catheter General Skin Exam: no breakdown Neuro CN's II-XII intact bilaterally, no focal motor deficits and no sensory deficits noted Motor Exam: strength 5/5 throughout and general weakness Psych thought process normal, cooperative and affect normal Appearance: appropriate Mood & Affect: flat affect Assessment & Plan Assessment/Plan (1) UTI (urinary tract infection): (2) ESRD on hemodialysis: PLAN: Plan #Acute encephalopathy, likely due to UTI and Staph bacteremia blood cultures positive for staph aureus ID on board on IV vancomycin and cefepime, per ID 2D echo showed no evidence of vegetation. dialysis catheter removed HONG also negative for any evidence of a stroke #Subacute ischemic CVA Found to have new left-sided weakness and slurred speech and some facial droop. CT of the brain done as stated above showed right ischemic infarct in the right MCA territory which appears to be subacute. This was new compared to previous CT of the brain from October 2023. HONG done was negative for stroke. plavix resumed today and aspirin ordered neurology on board. MRI brain showed moderate sized area of subacute nonhemorrhagic infarct i the right hemisphere involving the posterior and right frontal, parietal obe and extending into the posterior insula. CTA head and neck showed calcified plaque at the origin of the right internal carotid artery causing between 50 to 69% stenosis as well as less than 50% narrowing at the origin of the left internal carotid artery. 2D echo as above. neurology on board PT/OT on board fall precautions Vascular surgery on board #Carotid stenosis CTA head and neck as above showed calcified plaque at the origin of the right internal carotid artery causing between 50 to 69% stenosis as well as less than 50% narrowing at the origin of the left internal carotid artery. vascular surgery consulted and recommends medical management with aspirin, plavix and high intensity statin. carotid USG ordered per vascular surgery as I think it was felt there was poor contrast timing and right ICA appears 45% stenosed. #Staph bacteremia: as above #Acute on chronic anemia of chronic disease Hb today is 7.4. she was transfused with one unit of PRBC during this admission. likely due to ESRD transfuse if Hb <7 #Thrombocytopenia resolved. #ESRD. on HD. Nephrology on board. On dialysis MWF. Dialysis catheter removed due to staph bacteremia. temporary dialysis catheter inserted. # Hyperlipidemia: On statin #Type 2 diabetes mellitus: On Lantus 5 units daily. Insulin Sliding scale. Accu-Cheks ACHS. #Hypothyroidism: On Synthroid. #Depression: olanzapine DVT prophylaxis; SCDs o/a of acute on chronic anemia Disposition: awaiting placement Charges/Coding Visit Charges Inpatient E&M: 20654 Subs Hosp L2
[2023-12-24] MEDS: Cefepime HCl 1 GM in 0.9% Normal Saline (50mL MB+) 50 ML IV (11:00)
[2023-12-24] MEDS: 0.9% Saline Lock 10 ML Syringe IV (11:04)
[2023-12-24] MEDS: Insulin Lispro 100 UNIT/ML INSULN.PEN SC ×3 (11:08→21:38)
[2023-12-24 11:28] LABS: Bedside Glucose 152 mg/dL (74-106)
[2023-12-24] MEDS: Ferrous Sulfate 325 MG Tablet PO (12:18)
[2023-12-24 16:49] LABS: Bedside Glucose 216 mg/dL (74-106)
--- NOTE | 2023-12-24 19:10 | PN.RENAL_ITS ---
Subjective Subjective Following for ESRD. The patient denies current chest pain, shortness of breath, or nausea. Objective Data Objective Data Vital Signs: Vital Signs Temp Pulse Resp BP Pulse Ox O2 Del Method O2 Flow Rate 98 F 78 14 127/62 H 92 Room Air 2 12/24/23 17:09 12/24/23 17:13 12/24/23 17:09 12/24/23 17:13 12/24/23 17:09 12/24/23 17:09 12/24/23 05:15 Oxygen Flow Rate (L/min) 2 Oxygen Delivery Method Room Air Weight: 87.997 kg Body Mass Index (BMI) 31.1 Intake & Output: Intake and Output for Last 24 Hours 12/22/23 12/23/23 12/24/23 23:59 23:59 23:59 Intake Total 93.25 / 93.25 930 / 930 1210 / 1210 Output Total 1120 / 1120 1000 / 1000 Balance -1026.75 / -1026.75 -70 / -70 1210 / 1210 Lab / Micro Data 12/24/23 05:26 12/23/23 08:30 Labs: Laboratory Results - last 24 hr 12/23/23 21:05: POC Glucose 206 H 12/24/23 05:26: WBC 5.7, RBC 2.41 L, Hgb 7.4 L, Hct 23.5 L, MCV 97.5, MCH 30.7, MCHC 31.5 L, RDW Std Deviation 55.5 H, RDW Coeff of Fior 15.6 H, Plt Count 220, MPV 10.8, Immature Gran % (Auto) 8.300 H, Neut % (Auto) 60.3, Lymph % (Auto) 18.0 L, Amelia % (Auto) 9.0, Eos % (Auto) 4.0, Baso % (Auto) 0.4, Absolute Neuts (auto) 3.4, Absolute Lymphs (auto) 1.02, Nucleated RBC % 0, Differential Comment SCANNED, Diff Path Review February12/24/23 06:10: POC Glucose 118 H 12/24/23 11:07: POC Glucose 152 H 12/24/23 16:31: POC Glucose 216 H Micro: Microbiology 12/19/23 08:44 Blood Culture (Wb) - Right Hand Blood Culture - Final No growth in 5 days. 03/11/24 09:00 Blood Culture (Wb) - Dialysis/Fistula Blood Culture - Final No growth in 5 days. 12/21/23 14:50 Blood Culture (Wb) - Arm Left Blood Culture - Preliminary No growth in 48 hours. 12/20/23 10:16 Blood Culture (Wb) - Right Hand Blood Culture - Preliminary No growth in 48 hours. 12/16/23 14:24 Blood Culture (Wb) - Anticubital Right Blood Culture - Final Staphylococcus aureus 12/16/23 14:45 Blood Culture (Wb) - Left Hand Blood Culture - Final Staphylococcus aureus 12/16/23 14:33 Urine, Catheterized Urine Culture - Final Culture exhibits no growth. 12/16/23 14:24 Mucosa - Nasopharyngeal SARS-CoV-2, Influenza & RSV (PCR) - Final Physical Exam Narrative no apparent distress S1, S2, RRR Lung sounds clear Abdomen soft, nontender No pitting edema Left mid arm AV fistula positive thrill and bruit Assessment & Plan Assessment/Plan (1) ESRD on hemodialysis: (2) Encephalopathy: (3) UTI (urinary tract infection): PLAN: Plan - ESRD on hemodialysis Tuesday at [facility] followed by Dr. Flynn. Dialysis was completed yesterday. No need for dialysis today. Next dialysis is scheduled for 12/26/2023 after new dialysis catheter placement. -Acute metabolic encephalopathy felt to be secondary to Staph aureus bacteremia, New onset stroke. Improved. Staph bacteremia. Right IJ dialysis catheter removed. She has a left arm brachiocephalic fistula but it appears fairly deep. She says the dialysis unit could not get fistula because it was too deep. She says that [place] fistula but was not remember the name. she is in the process of switching to the peritoneal dialysis. Repeat blood cultures are negative. New dialysis catheter to be placed. For now we will maintain Tuesday, Tuesday, Tuesday schedule.
[2023-12-24] MEDS: OLANZapine 5 MG/TAB TAB.RAPDIS PO (21:33)
[2023-12-24 22:17] LABS: Bedside Glucose 168 mg/dL (74-106)
[2023-12-25] VITALS (10 sets, daily range): BP systolic 109–139; BP diastolic 41–77; PULSE 70–76; RESP 16–18; TEMP 36.1–36.6; O2SAT 93–94; BMI 31.1
[2023-12-25] MEDS: Acetaminophen 325 MG Tablet 650 MG PO ×2 (02:12→09:20)
[2023-12-25] MEDS: oxyCODONE 5 MG Tablet PO ×2 (02:13→09:21)
[2023-12-25] MEDS: Isosorbide DN 20 MG Tablet PO ×3 (06:27→21:11)
[2023-12-25] MEDS: Levothyroxine 25 MCG TABLET PO (06:27)
[2023-12-25 06:54] LABS: Bedside Glucose 109 mg/dL (74-106)
[2023-12-25 09:28] LABS: Absolute Lymphocyte Count 1.34 X10^3/uL (0.83-4.51); Absolute Neutrophil Count 4.2 X10^3/uL (2.0-7.7); Basophil# 0.06 X10^3/uL; Basophil% 0.8 % (0-1); Eosinophil# 0.25 X10^3/uL; Eosinophils% 3.5 % (0-5); Hematocrit 23.5 % (37-47); Hemoglobin 7.3 g/dL (12.0-15.0); Lymphocyte # 1.34 X10^3/ul (0.83-4.51); Lymphocyte % 18.9 % (19-41); Mean Corp Hgb Conc 31.1 g/dL (32-36); Mean Corpuscular Hgb 30.7 pg (27.0-32.0); Mean Corpuscular Volume 98.7 fL (81-99); Mean Platelet Vol. 10.3 fl (6.2-12.0); Monocyte# 0.61 X10^3/uL; Monocyte% 8.6 % (0-10); NRBC Flagged by Analyzer 0 % (0-5); Neutrophil # 4.21 X10^3/uL (2.7-7.7); Neutrophil % 59.3 % (47-70); POSITIVE COUNT YES; POSITIVE MORPHOLOGY YES; Platelet Count 285 K/mm3 (150-450); RBC Distribution Width CV 15.9 % (11.6-14.6); RBC Distribution Width SD 56.5 fl (35.1-43.9); Red Blood Count 2.38 M/mm3 (4.2-5.4); White Blood Count 7.1 K/mm3 (4.4-11.0)
[2023-12-25 09:40] LABS: Anion Gap 9 (5-15); BUN 72 mg/dL (7-18); BUN/Creat Ratio 11.2 RATIO (10-20); Calcium,Total 7.8 mg/dL (8.5-10.1); Chloride 107 mmol/L (98-107); Creatinine, Serum 6.42 mg/dL (0.55-1.02); EST Glomerular Filtration Rate 7 mL/min (>60); Est Glom Filt Rate - Afr Amer 9 mL/min (>60); Estimated Creatinine Clearance 10.67 ml/min; Glucose 105 mg/dL (74-106); Potassium 4.9 mmol/L (3.5-5.1); Sodium Level 139 mmol/L (136-145)
[2023-12-25] MEDS: Cefepime HCl 1 GM in 0.9% Normal Saline (50mL MB+) 50 ML IV (09:47)
[2023-12-25] MEDS: Ascorbic Acid 500 MG Tablet PO ×2 (09:47→21:11)
[2023-12-25] MEDS: Pramipexole Di-HCl 1 MG Tablet 1.5 MG PO ×2 (09:47→21:11)
[2023-12-25] MEDS: Juven (unflavored) Packet 1 PACKET PO (09:47)
[2023-12-25] MEDS: Pantoprazole Sodium 40 MG Tablet PO ×2 (09:48→16:15)
[2023-12-25] MEDS: Aspirin 81 MG TAB.CHEW PO (09:48)
[2023-12-25] MEDS: Calcium Acetate 667 MG Capsule PO ×3 (09:48→16:14)
[2023-12-25] MEDS: amLODIPine 5 MG Tablet PO (09:48)
[2023-12-25] MEDS: Folic Acid 1 MG Tablet PO (09:48)
[2023-12-25] MEDS: hydrALAZINE 25 MG Tablet PO ×3 (09:48→16:14)
[2023-12-25] MEDS: Carvedilol 12.5 MG Tablet PO ×2 (09:48→16:14)
[2023-12-25] MEDS: Clopidogrel Bisulfate 75 MG Tablet PO (09:49)
[2023-12-25] MEDS: buPROPion (XL) 150 MG TABLET.XL PO (09:50)
[2023-12-25] MEDS: 0.9% Saline Lock 10 ML Syringe IV ×2 (09:50→21:11)
[2023-12-25] MEDS: Menthol/Lanolin/Calamine/Znox 113 GM Tube 1 APPLIC TOPICAL ×2 (09:51→21:10)
[2023-12-25] MEDS: Insulin Glargine-YFGN 100 UNIT/ML Pen 20 UNIT SC (09:52)
[2023-12-25] MEDS: Atorvastatin Calcium 20 MG Tablet PO (09:52)
[2023-12-25 09:56] LABS: Differential Indicated SCAN CRITERIA MET
[2023-12-25 10:00] LABS: Eosinophil 3 % (0-5); Lymphocyte 24 % (19-41); Metamyelocyte 3 % (0-1); Monocyte 5 % (0-10); Myelocyte 4 % (0-0); Neutrophil-Band 2 % (0-5); Neutrophil-Segmented 59 % (47-70); Total Cells Counted 100 (MANUAL DIFF)
[2023-12-25 10:01] LABS: Anisocytosis 1+
[2023-12-25] MEDS: Insulin Lispro 100 UNIT/ML INSULN.PEN SC ×3 (11:34→21:11)
[2023-12-25 12:01] LABS: Bedside Glucose 150 mg/dL (74-106)
--- NOTE | 2023-12-25 12:42 | PN_ITS ---
Subjective Subjective Patient seen and examined. She had no active complaints and had an uneventful night. Review of systems is otherwise negative. She is awaiting placement. Objective Data Objective Data Vital Signs: Vital Signs Temp Pulse Resp BP Pulse Ox O2 Del Method O2 Flow Rate 97.0 F L 70 18 134/62 H 93 Room Air 2 12/25/23 09:14 12/25/23 11:34 12/25/23 09:14 12/25/23 11:34 12/25/23 09:14 12/25/23 09:14 12/24/23 05:15 Oxygen Flow Rate (L/min) 2 Oxygen Delivery Method Room Air Weight: 194 lb Body Mass Index (BMI) 31.1 Intake & Output: Intake and Output for Last 24 Hours 12/23/23 12/24/23 12/25/23 23:59 23:59 23:59 Intake Total 930 / 930 1210 / 1210 550 / 550 Output Total 1000 / 1000 Balance -70 / -70 1210 / 1210 550 / 550 Lab / Micro Data 12/25/23 09:06 12/25/23 09:06 Labs: Laboratory Results - last 24 hr 12/24/23 16:31: POC Glucose 216 H 12/24/23 21:37: POC Glucose 168 H 12/25/23 06:22: POC Glucose 109 H 12/25/23 09:06: WBC 7.1, RBC 2.38 L, Hgb 7.3 L, Hct 23.5 L, MCV 98.7, MCH 30.7, MCHC 31.1 L, RDW Std Deviation 56.5 H, RDW Coeff of Fior 15.9 H, Plt Count 285, MPV 10.3, Immature Gran % (Auto) 8.900 H, Neut % (Auto) 59.3, Lymph % (Auto) 18.9 L, Mcpherson % (Auto) 8.6, Eos % (Auto) 3.5, Baso % (Auto) 0.8, Absolute Neuts (auto) 4.2, Absolute Lymphs (auto) 1.34, Total Counted 100, Neutrophils % (Manual) 59, Band Neutrophils % 2, Lymphocytes % (Manual) 24, Monocytes % (Manual) 5, Eosinophils % (Manual) 3, Metamyelocytes % 3 H, Myelocytes % 4 H, Nucleated RBC % 0, Diff Path Review May foll, Anisocytosis 1+, Sodium 139, Potassium 4.9, Chloride 107, Carbon Dioxide 23.0, Anion Gap 9, BUN 72 H, Creat inine 6.42 H, Estim Creat Clear Calc 10.67, Est GFR (MDRD) Af Amer 9 L, Est GFR (MDRD) Non-Af 7 L, BUN/Creatinine Ratio 11.2, Glucose 105, Calcium 7.8 L 12/25/23 11:30: POC Glucose 150 H Micro: Microbiology 12/20/23 10:16 Blood Culture (Wb) - Right Hand Blood Culture - Final No growth in 5 days. 12/19/23 08:44 Blood Culture (Wb) - Right Hand Blood Culture - Final No growth in 5 days. 12/19/23 09:00 Blood Culture (Wb) - Dialysis/Fistula Blood Culture - Final No growth in 5 days. 12/21/23 14:50 Blood Culture (Wb) - Arm Left Blood Culture - Preliminary No growth in 48 hours. 12/16/23 14:24 Blood Culture (Wb) - Anticubital Right Blood Culture - Final Staphylococcus aureus 12/16/23 14:45 Blood Culture (Wb) - Left Hand Blood Culture - Final Staphylococcus aureus 12/16/23 14:33 Urine, Catheterized Urine Culture - Final Culture exhibits no growth. 12/16/23 14:24 Mucosa - Nasopharyngeal SARS-CoV-2, Influenza & RSV (PCR) - Final Physical Exam Const alert, oriented x3 and no apparent distress Constitutional Narrative: frail General Appearance: cooperative HEENT normocephalic, head/scalp atraumatic and moist oral mucous membranes Eyes PERRL and EOMs intact bilaterally Neck no lymphadenopathy and supple Lymph Lymphatic: no lymphadenopathy noted and no lymphedema noted Resp Resp Narrative: diminished breath sounds bibasally, no wheezes or crackles. on room air. Cardio regular rate, regular rhythm, S1 normal heart sound, S2 normal heart sound and no murmurs GI normal to inspection, nondistended, normoactive bowel sounds, soft to palpation, non-tender and non-distended Extremity normal capillary refill, no clubbing, cyanosis or edema and no calf tenderness Extremity Narrative: intact dressing over dialysis catheter site General Extremity: no tenderness to palpation of joints or extremities Skin Skin Narrative: temporary dialysis catheter General Skin Exam: no breakdown Neuro CN's II-XII intact bilaterally, no focal motor deficits and no sensory deficits noted Motor Exam: strength 5/5 throughout and general weakness Psych thought process normal, cooperative and affect normal Psych Narrative: lethargic Appearance: appropriate Mood & Affect: flat affect Assessment & Plan Assessment/Plan (1) UTI (urinary tract infection): (2) ESRD on hemodialysis: PLAN: Plan #Acute encephalopathy, likely due to UTI and Staph bacteremia * blood cultures positive for staph aureus * ID on board * on IV vancomycin and cefepime, per ID * 2D echo showed no evidence of vegetation. * dialysis catheter removed * HONG also negative for any evidence of a stroke * #Subacute ischemic CVA * Found to have new left-sided weakness and slurred speech and some facial droop. CT of the brain done as stated above showed right ischemic infarct in the right MCA territory which appears to be subacute. This was new compared to previous CT of the brain from October 2023. * HONG done was negative for stroke. * plavix resumed today and aspirin ordered * neurology on board. * MRI brain showed moderate sized area of subacute nonhemorrhagic infarct i the right hemisphere involving the posterior and right frontal, parietal obe and extending into the posterior insula. * CTA head and neck showed calcified plaque at the origin of the right internal carotid artery causing between 50 to 69% stenosis as well as less than 50% narrowing at the origin of the left internal carotid artery. * 2D echo as above. * neurology on board * PT/OT on board * fall precautions * Vascular surgery on board * * #Carotid stenosis * CTA head and neck as above showed calcified plaque at the origin of the right internal carotid artery causing between 50 to 69% stenosis as well as less than 50% narrowing at the origin of the left internal carotid artery. * vascular surgery consulted and recommends medical management with aspirin, plavix and high intensity statin. * carotid USG ordered per vascular surgery as I think it was felt there was poor contrast timing and right ICA appears 45% stenosed. * #Staph bacteremia: as above #Acute on chronic anemia of chronic disease * Hb today is 7.3. she was transfused with one unit of PRBC during this admission. * likely due to ESRD * transfuse if Hb <7 * #Thrombocytopenia * resolved. * #ESRD. * on HD. Nephrology on board. * On dialysis MWF. Dialysis catheter removed due to staph bacteremia. * temporary dialysis catheter inserted. * # Hyperlipidemia: On statin #Type 2 diabetes mellitus: On Lantus 5 units daily. Insulin Sliding scale. Accu-Cheks ACHS. #Hypothyroidism: On Synthroid. #Depression: olanzapine DVT prophylaxis; SCDs o/a of acute on chronic anemia Disposition: awaiting placement Charges/Coding Visit Charges Inpatient E&M: 15939 Subs Hosp L2
[2023-12-25] MEDS: Paroxetine 20 MG Tablet PO (14:33)
[2023-12-25 16:53] LABS: Bedside Glucose 170 mg/dL (74-106)
[2023-12-25] MEDS: OLANZapine 5 MG/TAB TAB.RAPDIS PO (21:11)
[2023-12-25 23:17] LABS: Bedside Glucose 177 mg/dL (74-106)
[2023-12-26] VITALS (14 sets, daily range): BP systolic 113–232; BP diastolic 48–92; PULSE 60–75; RESP 13–18; TEMP 36–36.7; O2SAT 92–98; BMI 31.1; BMI 30.4
[2023-12-26] MEDS: oxyCODONE 5 MG Tablet PO ×2 (04:43→12:25)
[2023-12-26] MEDS: Ondansetron 4 MG/2 ML Vial IV (07:02)
[2023-12-26 07:24] LABS: Bedside Glucose 94 mg/dL (74-106)
[2023-12-26] MEDS: Insulin Glargine-YFGN 100 UNIT/ML Pen 20 UNIT SC (08:13)
[2023-12-26] MEDS: Pramipexole Di-HCl 1 MG Tablet 1.5 MG PO (08:13)
[2023-12-26] MEDS: Aspirin 81 MG TAB.CHEW PO (08:14)
[2023-12-26] MEDS: Ascorbic Acid 500 MG Tablet PO (08:14)
[2023-12-26] MEDS: amLODIPine 5 MG Tablet PO (08:14)
[2023-12-26] MEDS: Folic Acid 1 MG Tablet PO (08:14)
[2023-12-26] MEDS: Carvedilol 12.5 MG Tablet PO ×2 (08:14→16:58)
[2023-12-26] MEDS: Pantoprazole Sodium 40 MG Tablet PO ×2 (08:14→16:59)
[2023-12-26] MEDS: Calcitriol 0.25 MCG Capsule 0.5 MCG PO (08:15)
[2023-12-26] MEDS: Atorvastatin Calcium 20 MG Tablet PO (08:15)
[2023-12-26] MEDS: hydrALAZINE 25 MG Tablet PO ×3 (08:15→16:58)
[2023-12-26] MEDS: Calcium Acetate 667 MG Capsule PO ×3 (08:15→16:58)
[2023-12-26] MEDS: Paroxetine 20 MG Tablet PO (08:15)
[2023-12-26] MEDS: Clopidogrel Bisulfate 75 MG Tablet PO (08:16)
[2023-12-26] MEDS: Acetaminophen 325 MG Tablet 650 MG PO (08:21)
[2023-12-26] MEDS: cycloBENZAPRine HCl 5 MG TABLET PO ×2 (08:26→17:00)
[2023-12-26] MEDS: PureFlow B 2K Dialysis Soln 1 BAG 6 BAG PF (08:43)
[2023-12-26] MEDS: 0.9% Normal Saline 1,000 ML IV.SOLN. 1000 ML OPERA.SITE (08:43)
[2023-12-26] MEDS: 0.9% Saline Lock 10 ML Syringe IV (08:44)
--- NOTE | 2023-12-26 09:19 | CASEMGMT ---
Discharge Planning Updates sent to [facility] via [employer]. Rekha Moore DC Planning Asst.
[2023-12-26] MEDS: Epoetin Alfa epbx 10,000 UNITS/ML 20000 UNIT IV (09:32)
--- NOTE | 2023-12-26 09:32 | NUR.TO.PHY ---
pt extremely restless during dialysis. keeps rolling left arm up and kinking dialysis catheter. pt states she wants to sit on side of bed. This RN advised patient that she cannot safely sit on side of bed during dialysis treatment. unable to add central line intervention to EMR. Dressing changed today & new CHG dressing placed.
--- NOTE | 2023-12-26 10:26 | CASEMGMT ---
SW sent dialysis run sheets to [facility] per their request. Kamilla Tinsley SUPERVISOR [employer]PA[employer]
--- NOTE | 2023-12-26 11:10 | PN.RENAL_ITS ---
Subjective Subjective Seen during dialysis, tolerating treatment well. Objective Data Objective Data Vital Signs: Vital Signs Temp Pulse Resp BP Pulse Ox O2 Del Method O2 Flow Rate 97.5 F L 64 14 137/54 H 92 Nasal Cannula 2 12/26/23 08:09 12/26/23 10:50 12/26/23 10:50 12/26/23 10:50 12/26/23 08:20 12/26/23 10:50 12/26/23 10:50 Oxygen Flow Rate (L/min) 2 Oxygen Delivery Method Nasal Cannula Weight: 87.9 kg Body Mass Index (BMI) 31.1 Intake & Output: Intake and Output for Last 24 Hours 12/24/23 12/25/23 12/26/23 23:59 23:59 23:59 Intake Total 1210 / 1210 1050 / 1050 Balance 1210 / 1210 1050 / 1050 Lab / Micro Data 12/25/23 09:06 12/25/23 09:06 Labs: Laboratory Results - last 24 hr 12/25/23 11:30: POC Glucose 150 H 12/25/23 16:11: POC Glucose 170 H 12/25/23 21:07: POC Glucose 177 H 12/26/23 06:56: POC Glucose 94 Micro: Microbiology 12/20/23 10:16 Blood Culture (Wb) - Right Hand Blood Culture - Final No growth in 5 days. 12/19/23 08:44 Blood Culture (Wb) - Right Hand Blood Culture - Final No growth in 5 days. 12/19/23 09:00 Blood Culture (Wb) - Dialysis/Fistula Blood Culture - Final No growth in 5 days. 12/21/23 14:50 Blood Culture (Wb) - Arm Left Blood Culture - Preliminary No growth in 48 hours. 12/16/23 14:24 Blood Culture (Wb) - Anticubital Right Blood Culture - Final Staphylococcus aureus 12/16/23 14:45 Blood Culture (Wb) - Left Hand Blood Culture - Final Staphylococcus aureus 12/16/23 14:33 Urine, Catheterized Urine Culture - Final Culture exhibits no growth. 12/16/23 14:24 Mucosa - Nasopharyngeal SARS-CoV-2, Influenza & RSV (PCR) - Final Physical Exam Narrative no apparent distress S1, S2, RRR Lung sounds clear Abdomen soft, nontender No pitting edema Left mid arm AV fistula positive thrill and bruit Tunneled HD catheter dressing C/D/I, accessed for hemodialysis. Assessment & Plan Assessment/Plan (1) ESRD on hemodialysis: (2) Encephalopathy: (3) UTI (urinary tract infection): PLAN: Plan - ESRD on hemodialysis Tuesday at [facility] followed by Dr. Flynn. Undergoing hemodialysis today, attempting ~2L UF. Received JORGE with HD today. -Acute metabolic encephalopathy felt to be secondary to Staph aureus bacteremia, s/p tunneled HD catheter removed and new TDC placed 12/21. She has a left arm brachiocephalic fistula but it appears fairly deep. She says the dialysis unit could not access fistula because it was too deep. She says that the surgeon in [place] placed the fistula but does not remember the name. She is in the process of switching to the peritoneal dialysis. Repeat blood cultures are negative. - New onset stroke. Improved. - discharge planning in progress, possibly to [facility]. If patient goes to [facility] she will dialyze on a Tuesday, Tuesday, , Tuesday schedule. Current antibiotic order is for cefepime 2gm post-dialysis MWF (will need to confirm with ID as she is possibly now going to [facility] with different dialysis schedule) with stop date 01/30/2024. To Follow-up with ID
[2023-12-26] MEDS: Heparin 10,000 UNITS/10 ML Vial IV (11:16)
--- NOTE | 2023-12-26 11:16 | PN_ITS ---
Subjective Subjective Patient seen and examined. She had no active complaints. Review of systems is otherwise negative. She is awaiting placement. Objective Data Objective Data Vital Signs: Vital Signs Temp Pulse Resp BP Pulse Ox O2 Del Method O2 Flow Rate 97.5 F L 64 14 137/54 H 92 Nasal Cannula 2 12/26/23 08:09 12/26/23 10:50 12/26/23 10:50 12/26/23 10:50 12/26/23 08:20 12/26/23 10:50 12/26/23 10:50 Oxygen Flow Rate (L/min) 2 Oxygen Delivery Method Nasal Cannula Weight: 193 lb 12.581 oz Body Mass Index (BMI) 31.1 Intake & Output: Intake and Output for Last 24 Hours 12/24/23 12/25/23 12/26/23 23:59 23:59 23:59 Intake Total 1210 / 1210 1050 / 1050 Balance 1210 / 1210 1050 / 1050 Lab / Micro Data 12/25/23 09:06 12/25/23 09:06 Labs: Laboratory Results - last 24 hr 12/25/23 11:30: POC Glucose 150 H 12/25/23 16:11: POC Glucose 170 H 12/25/23 21:07: POC Glucose 177 H 12/26/23 06:56: POC Glucose 94 Micro: Microbiology 12/20/23 10:16 Blood Culture (Wb) - Right Hand Blood Culture - Final No growth in 5 days. 12/19/23 08:44 Blood Culture (Wb) - Right Hand Blood Culture - Final No growth in 5 days. 12/19/23 09:00 Blood Culture (Wb) - Dialysis/Fistula Blood Culture - Final No growth in 5 days. 12/21/23 14:50 Blood Culture (Wb) - Arm Left Blood Culture - Preliminary No growth in 48 hours. 12/16/23 14:24 Blood Culture (Wb) - Anticubital Right Blood Culture - Final Staphylococcus aureus 12/16/23 14:45 Blood Culture (Wb) - Left Hand Blood Culture - Final Staphylococcus aureus 12/16/23 14:33 Urine, Catheterized Urine Culture - Final Culture exhibits no growth. 12/16/23 14:24 Mucosa - Nasopharyngeal SARS-CoV-2, Influenza & RSV (PCR) - Final Physical Exam Const alert, oriented x3 and no apparent distress Constitutional Narrative: frail General Appearance: cooperative HEENT normocephalic, head/scalp atraumatic and moist oral mucous membranes Eyes PERRL and EOMs intact bilaterally Neck no lymphadenopathy and supple Lymph Lymphatic: no lymphadenopathy noted and no lymphedema noted Resp Resp Narrative: diminished breath sounds bibasally, no wheezes or crackles. on room air. Cardio regular rate, regular rhythm, S1 normal heart sound, S2 normal heart sound and no murmurs GI normal to inspection, nondistended, normoactive bowel sounds, soft to palpation, non-tender and non-distended Extremity normal capillary refill, no clubbing, cyanosis or edema and no calf tenderness Extremity Narrative: intact dressing over dialysis catheter site General Extremity: no tenderness to palpation of joints or extremities Skin Skin Narrative: temporary dialysis catheter General Skin Exam: no breakdown Neuro CN's II-XII intact bilaterally, no focal motor deficits and no sensory deficits noted Neuro Narrative: lethargic Motor Exam: strength 5/5 throughout and general weakness Psych thought process normal, cooperative and affect normal Psych Narrative: lethargic Appearance: appropriate Mood & Affect: flat affect Assessment & Plan Assessment/Plan (1) UTI (urinary tract infection): (2) ESRD on hemodialysis: PLAN: Plan #Acute encephalopathy, likely due to UTI and Staph bacteremia * blood cultures positive for staph aureus * ID on board * on IV vancomycin and cefepime, per ID * 2D echo showed no evidence of vegetation. * dialysis catheter removed * HONG also negative for any evidence of a stroke * #Subacute ischemic CVA * Found to have new left-sided weakness and slurred speech and some facial droop. CT of the brain done as stated above showed right ischemic infarct in the right MCA territory which appears to be subacute. This was new compared to previous CT of the brain from October 2023. * HONG done was negative for stroke. * plavix resumed today and aspirin ordered * neurology on board. * MRI brain showed moderate sized area of subacute nonhemorrhagic infarct i the right hemisphere involving the posterior and right frontal, parietal obe and extending into the posterior insula. * CTA head and neck showed calcified plaque at the origin of the right internal carotid artery causing between 50 to 69% stenosis as well as less than 50% narrowing at the origin of the left internal carotid artery. * 2D echo as above. * neurology on board * PT/OT on board * fall precautions * Vascular surgery on board * * #Carotid stenosis * CTA head and neck as above showed calcified plaque at the origin of the right internal carotid artery causing between 50 to 69% stenosis as well as less than 50% narrowing at the origin of the left internal carotid artery. * vascular surgery consulted and recommends medical management with aspirin, plavix and high intensity statin. * carotid USG ordered per vascular surgery as I think it was felt there was poor contrast timing and right ICA appears 45% stenosed. * #Staph bacteremia: as above #Acute on chronic anemia of chronic disease * Hb today is 7.3. she was transfused with one unit of PRBC during this admission. * likely due to ESRD * transfuse if Hb <7 * #Thrombocytopenia * resolved. * #ESRD. * on HD. Nephrology on board. * On dialysis MWF. Dialysis catheter removed due to staph bacteremia. * temporary dialysis catheter inserted. * # Hyperlipidemia: On statin #Type 2 diabetes mellitus: On Lantus 5 units daily. Insulin Sliding scale. Acc u-Cheks ACHS. #Hypothyroidism: On Synthroid. #Depression: olanzapine DVT prophylaxis; SCDs o/a of acute on chronic anemia Disposition: awaiting placement Charges/Coding Visit Charges Inpatient E&M: 36151 Subs Hosp L2
--- NOTE | 2023-12-26 11:50 | CASEMGMT ---
Discharge Planning [facility] has obtained auth. Rekha Moore, Discharge Planning Asst.
[2023-12-26 11:56] LABS: Bedside Glucose 95 mg/dL (74-106)
[2023-12-26] MEDS: Menthol/Lanolin/Calamine/Znox 113 GM Tube 1 APPLIC TOPICAL (12:07)
[2023-12-26] MEDS: Cefepime HCl 1 GM in 0.9% Normal Saline (50mL MB+) 50 ML IV (12:07)
[2023-12-26] MEDS: Lidocaine 5% Patch 1 PATCH TOPICAL (12:08)
[2023-12-26] MEDS: buPROPion (XL) 150 MG TABLET.XL PO (12:08)
--- NOTE | 2023-12-26 14:06 | TREXTCAR_ITS ---
Diet Diet Order/Speech Therapy: 12/22/23 14:49 Diet: Cardiac: Calorie-Controlled Food consistency:: Regular Liquid Consistency:: Regular/Thin Is pt able to select menu?: Yes How many daily calories?: 1999 calorie Routine Orders/Code Status Enema Type: Fleetz Enema Frequency: Daily PRN O2 Frequency: PRN Keep PO Greater than or Equal to (%): 90 Wound(s) Right Foot Bottom: Wound Type: Pressure Injury Left Foot Bottom: Wound Type: Pressure Injury left anterolateral ankle: Wound Type: Abrasion Dressing Change: dry dressing left plantar/lateral foot: Wound Type: Neuropathic/Diabetic Foot Ulcer Dressing Change: dry, well padded dressing right plantar foot: Wound Type: Neuropathic/Diabetic Foot Ulcer Dressing Change: AntiMicrobial (Aquacel AG, etc) ANT UPPER CHEST: Wound Type: Surgical Incision right upper chest: Wound Type: Surgical Incision Therapies Weight Bearing: Weight bearing as tolerated Extremity Affected:: Bilateral Lower Physical Therapy: Eval and Treat Problem/Diagnosis (1) UTI (urinary tract infection): Status: Acute Code(s): N39.0 - Urinary tract infection, site not specified (2) ESRD on hemodialysis: Status: Acute Code(s): N18.6 - End stage renal disease; Z99.2 - Dependence on renal dialysis (3) Encephalopathy: Status: Acute Code(s): G93.40 - Encephalopathy, unspecified Plan #Acute encephalopathy, likely due to UTI and Staph bacteremia * blood cultures positive for staph aureus * ID on board * on IV vancomycin and cefepime, per ID * 2D echo showed no evidence of vegetation. * dialysis catheter removed * HONG also negative for any evidence of a stroke * #Subacute ischemic CVA * Found to have new left-sided weakness and slurred speech and some facial droop. CT of the brain done as stated above showed right ischemic infarct in the right MCA territory which appears to be subacute. This was new compared to previous CT of the brain from October 2023. * HONG done was negative for stroke. * plavix resumed today and aspirin ordered * neurology on board. * MRI brain showed moderate sized area of subacute nonhemorrhagic infarct i the right hemisphere involving the posterior and right frontal, parietal obe and extending into the posterior insula. * CTA head and neck showed calcified plaque at the origin of the right internal carotid artery causing between 50 to 69% stenosis as well as less than 50% narrowing at the origin of the left internal carotid artery. * 2D echo as above. * neurology on board * PT/OT on board * fall precautions * Vascular surgery on board * * #Carotid stenosis * CTA head and neck as above showed calcified plaque at the origin of the right internal carotid artery causing between 50 to 69% stenosis as well as less than 50% narrowing at the origin of the left internal carotid artery. * vascular surgery consulted and recommends medical management with aspirin, plavix and high intensity statin. * carotid USG ordered per vascular surgery as I think it was felt there was poor contrast timing and right ICA appears 45% stenosed. * #Staph bacteremia: as above #Acute on chronic anemia of chronic disease * Hb today is 7.3. she was transfused with one unit of PRBC during this admission. * likely due to ESRD * transfuse if Hb <7 * #Thrombocytopenia * resolved. * #ESRD. * on HD. Nephrology on board. * On dialysis MWF. Dialysis catheter removed due to staph bacteremia. * temporary dialysis catheter inserted. * # Hyperlipidemia: On statin #Type 2 diabetes mellitus: On Lantus 5 units daily. Insulin Sliding scale. Accu-Cheks ACHS. #Hypothyroidism: On Synthroid. #Depression: olanzapine DVT prophylaxis; SCDs o/a of acute on chronic anemia Disposition: awaiting placement Allergies/Procedures Done in Hospital Allergies Penicillins Allergy (Verified 12/16/23 13:24) swelling in throat vancomycin Allergy (Verified 12/16/23 13:24) Itching metronidazole Adverse Reaction (Verified 12/16/23 13:24) Nausea oxycodone [From OxyContin] Adverse Reaction (Verified 12/16/23 13:24) Shortness of breath Type of Care/Length of Stay Estimated LOS: Convalescent Care Less Than 30 days Type of Care Needed: Skilled Rehab Potential: Fair Prognosis: Fair Additional Orders/Day of Discharge Day of Discharge: 12/26/23 Dietary and Speech Recommendations Dietitian Recommendations/Changes: ADAT to 2000 calorie/consistent carbohydrate; Renal when medically able to manage medical conditions. Continue Ted BID w/ medpass to support wound healing when diet advances. Diet education as pt willing. Discharge Plan Admission Admit Date/Time: 12/16/23 17:27 Primary Reason for Your Visit: Staph bacteremia Attending Provider: Rachel Okeefe Primary Care Provider: Raúl Eric Consulting Providers: Angel Joel; Kike Tello; Rachel Okeefe; Rodney Yates; Juan Alberto Mcgregor; David Solorzano; Jocelin Monk; Ary Hammond; Ella Mendosa; Carrol Betancur; Olaf Caceres; Vanessa Arora; Vincenzo Glass; Shayne Schwarz; Nano Watt; Landen Arthur; Analilia Gardner; Nicole Ramirez; April Hardy; Stanley Smallwood; Wm Rocha; Sherman King; Maxine Mancilla; Daniela Carranza; Kali Burciaga Instructions Patient Instructions: Staph MRSA Discharge Orders/Prescriptions Prescriptions: New cefepime in dextrose 5 % 1 gram/50 mL piggyback 1 g IV .as directed Rx Instructions: Dose with dialysis sessions. 1gm on Tue, 2gm on , 1gm on , 2gm on Tuesday. Stop date 01/30/24. Dx: MSSA endocarditis. Weekly bmp and cbc. Fax to [phone]. No Action paroxetine HCl 20 mg tablet 20 mg PO DAILY Patient Comments: TAKE 1 TABLET BY MOUTH EVERY DAY IN THE EVENING bupropion HCl 150 mg tablet extended release 24 hr 150 mg PO DAILY Patient Comments: TAKE 1 TABLET BY MOUTH EVERY DAY sennosides-docusate sodium [Stool Softener-Stimulant Laxat] 8.6-50 mg Tablet 2 tab PO BID PRN PRN (Reason: Constipation) Qty: 0 0RF ascorbic acid (vitamin C) [Vitamin C] 500 mg Tablet 500 mg PO BID clopidogrel 75 mg tablet 75 mg PO DAILY pantoprazole 40 mg tablet,delayed release (DR/EC) 40 mg PO BIDCM ferrous sulfate 325 mg (65 mg iron) tablet 325 mg PO .three times a week Patient Comments: takes three times a week, on Tuesday, and Tuesday insulin lispro [Humalog KwikPen Insulin] 100 unit/mL Insulin Pen See Protocol subcut TIDAC Qty: 0 0RF Protocol: 1. Sliding Scale Insulin Low Dosing Condition: 150-224 mg/dl = 1 unit Condition: 225-299 mg/dl = 2 units Condition: 300-374 mg/dl = 3 units Condition: 375-499 mg/dl = 4 units Condition: Greater than 449 call physician Protocol Text: - Use for Total Daily Dose of Insulin 15-27 units - Thin, elderly, renal patients LOW DOSING ALGORITHM insulin glargine-yfgn 100 unit/mL (3 mL) insulin pen 5 unit subcut QHS Qty: 15 0RF Rx Instructions: Hold if glucose less than 130 mg/dl gabapentin 100 mg capsule 100 mg PO .COMPLEX PRN (Reason: pain) Rx Instructions: 100 mg orally 3 times a week Tuesday, Tuesday and Tuesday cyclobenzaprine 5 mg tablet 5 mg PO TID PRN (Reason: muscle spasm) Qty: 21 0RF atorvastatin 20 mg tablet 20 mg PO DAILY Patient Comments: TAKE 1 TABLET BY MOUTH EVERY DAY calcium acetate(phosphat bind) 667 mg capsule 676 mg PO TID Patient Comments: TAKE 1 CAPSULE BY MOUTH THREE TIMES A DAY WITH FOOD folic acid 800 mcg tablet 0.8 mg PO DAILY Patient Comments: TAKE 1 TABLET BY MOUTH EVERY DAY levothyroxine 25 mcg tablet 25 mcg PO DAILY Patient Comments: TAKE 1 TABLET BY MOUTH EVERY DAY BEFORE BREAKFAST insulin aspart U-100 100 unit/mL (3 mL) insulin pen SUBCUT Patient Comments: PLEASE SEE ATTACHED FOR DETAILED DIRECTIONS olanzapine 5 mg tablet 5 mg PO QHS Patient Comments: TAKE 1 TABLET BY MOUTH EVERYDAY AT BEDTIME oxycodone-acetaminophen 5-325 mg tablet 1 tab PO Q6H PRN (Reason: pain) Patient Comments: TAKE 1 TABLET BY MOUTH EVERY 6 HOURS NEEDED amlodipine 5 mg tablet 5 mg PO DAILY carvedilol 12.5 mg tablet 12.5 mg PO BID Rx Instructions: must administer with a meal/food hydralazine 25 mg tablet 25 mg PO TID insulin glargine [Lantus Solostar U-100 Insulin] 100 unit/mL (3 mL) insulin pen 20 unit subcut DAILY lidocaine-silicone, adhesive topical Patient Comments: 1 patch daily melatonin 5 mg capsule 5 mg PO .bedtime insulin aspart U-100 [Novolog FlexPen U-100 Insulin] 6 unit subcut TID Patient Comments: give with meals ondansetron 4 mg tablet,disintegrating 4 mg PO DAILY PRN (Reason: nausea and vomiting) pramipexole dihydrochloride 1.5 mg PO BID isosorbide dinitrate 10 mg Tablet 20 mg PO TID acetaminophen 325 mg capsule 325 mg PO Q4H PRN (Reason: fever or pain) antacid extra assorted fruit tablets 750 mg PO .every 4 hours PRN (Reason: tums) calcitriol 0.5 mcg capsule 0.5 mcg PO .COMPLEX Rx Instructions: 0.5 mcg orally three times a week; cloNIDine See Rx Instructions .ROUTE .COMPLEX Rx Instructions: 0.1mg every 4 hours as needed diphenhydramine 25 mg IV Rx Instructions: every 30 minutes as needed. loperamide [Anti-Diarrheal (loperamide)] 2 mg capsule 2 mg PO Q4H PRN (Reason: loose stool) Rx Instructions: administer after each loose stool until symptoms controlled; do not exceed 8 mg per 24 hrs Mircera See Rx Instructions .ROUTE .COMPLEX Rx Instructions: intravenous every 2 weeks nitroglycerin [Nitrostat] 0.4 mg tablet, sublingual 0.4 mg sublingual Q5M Rx Instructions: do not exceed 3 doses per episode promethazine 25 mg tablet 25 mg PO Q4H PRN (Reason: nausea and vomiting) Venofer Rx Instructions: 50 mg one time a week. Referrals / Follow Up: Raúl Eric MD [Primary Care Provider] - Within 2 Weeks Disposition Disposition (needs filled in before D/C Order can be placed): Shelter Facility
--- NOTE | 2023-12-26 14:09 | DS.PCM_ITS ---
Providers Date of Admission: 12/16/23 Date of Discharge: 12/26/23 Primary Care Physician: Dr. Raúl Eric MD Consultations 12/16/23 20:01 Consult: Nephrology Routine Consulting Provider: Angel Joel Reason for Consult: ESRD on hemodialysis EMERGENT Consult: No MD Notified: Yes Date Notified: 12/16/23 Time Notified: 22:32 Method of Notification: Answering Service 12/16/23 22:06 Consult: Infectious Disease Routine Consulting Provider: Kike Tello Reason for Consult: GP bacteremia, ? UTI, Poss HD cath EMERGENT Consult: No MD Notified: Yes Date Notified: 12/17/23 Time Notified: 06:19 Method of Notification: Text 12/17/23 07:43 Consult: Onc/Wound/butadiene converter helper Routine Comment: Reason for Consult:: diabetic foot ulcers 12/19/23 15:52 Consult: General Surgery Routine Consulting Provider: Juan Alberto Mcgregor Reason for Consult: staph aureus bacteremia, needs dialysis catheter removed EMERGENT Consult: No MD Notified: Yes Date Notified: 12/19/23 Time Notified: 15:52 Method of Notification: Verbal 12/21/23 14:08 Consult: Tele-Neurology Routine Consulting Provider: [facility] Reason for Consult: subacute CVA EMERGENT Consult: No Notified: Yes Date Notified: 12/21/23 Time Notified: 14:21 Method of Notification: Answering Service Nursing Unit Staff Notify [facility] of Tele-Neurology Consult: Yes 12/22/23 13:36 Consult: Vascular Surgery Routine Consulting Provider: Kali Burciaga Reason for Consult: carotid stenosis in setting of subacute CVA EMERGENT Consult: No MD Notified: Yes Date Notified: 12/22/23 Time Notified: 13:36 Method of Notification: Text Reason For Visit: UTI, SEPSIS Diagnosis Discharge Diagnosis (1) UTI (urinary tract infection): Status: Acute Code(s): N39.0 - Urinary tract infection, site not specified (2) ESRD on hemodialysis: Status: Acute Code(s): N18.6 - End stage renal disease; Z99.2 - Dependence on renal dialysis (3) Encephalopathy: Status: Acute Code(s): G93.40 - Encephalopathy, unspecified Plan #Acute encephalopathy, likely due to UTI and Staph bacteremia * blood cultures positive for staph aureus * ID on board * on IV vancomycin and cefepime, per ID * 2D echo showed no evidence of vegetation. * dialysis catheter removed * HONG also negative for any evidence of a stroke * #Subacute ischemic CVA * Found to have new left-sided weakness and slurred speech and some facial droop. CT of the brain done as stated above showed right ischemic infarct in the right MCA territory which appears to be subacute. This was new compared to previous CT of the brain from October 2023. * HONG done was negative for stroke. * plavix resumed today and aspirin ordered * neurology on board. * MRI brain showed moderate sized area of subacute nonhemorrhagic infarct i the right hemisphere involving the posterior and right frontal, parietal obe and extending into the posterior insula. * CTA head and neck showed calcified plaque at the origin of the right internal carotid artery causing between 50 to 69% stenosis as well as less than 50% narrowing at the origin of the left internal carotid artery. * 2D echo as above. * neurology on board * PT/OT on board * fall precautions * Vascular surgery on board * * #Carotid stenosis * CTA head and neck as above showed calcified plaque at the origin of the right internal carotid artery causing between 50 to 69% stenosis as well as less than 50% narrowing at the origin of the left internal carotid artery. * vascular surgery consulted and recommends medical management with aspirin, plavix and high intensity statin. * carotid USG ordered per vascular surgery as I think it was felt there was poor contrast timing and right ICA appears 45% stenosed. * #Staph bacteremia: as above #Acute on chronic anemia of chronic disease * Hb today is 7.3. she was transfused with one unit of PRBC during this admission. * likely due to ESRD * transfuse if Hb <7 * #Thrombocytopenia * resolved. * #ESRD. * on HD. Nephrology on board. * On dialysis MWF. Dialysis catheter removed due to staph bacteremia. * temporary dialysis catheter inserted. * # Hyperlipidemia: On statin #Type 2 diabetes mellitus: On Lantus 5 units daily. Insulin Sliding scale. Accu-Cheks ACHS. #Hypothyroidism: On Synthroid. #Depression: olanzapine DVT prophylaxis; SCDs o/a of acute on chronic anemia Disposition: awaiting placement Medications at Discharge Home Medications paroxetine HCl 20 mg tablet 20 mg PO DAILY DEPRESSION 07/07/21 bupropion HCl 150 mg 24 hr tablet, extended release 150 mg PO DAILY mood sennosides 8.6 mg-docusate sodium 50 mg tablet (Stool Softener-Stimulant Laxative) 2 tab PO BID PRN PRN Constipation #0 tabs 04/24/22 ascorbic acid (vitamin C) 500 mg tablet (Vitamin C) 500 mg PO BID supplement 05/05/22 clopidogrel 75 mg tablet 75 mg PO DAILY prevent stroke 07/19/22 ferrous sulfate 325 mg (65 mg iron) tablet 325 mg PO .three times a week anemia 07/19/22 pantoprazole 40 mg tablet,delayed release 40 mg PO BIDCM GERD 07/19/22 insulin glargine-yfgn 100 unit/mL (3 mL) subcutaneous pen 5 unit (0.05 mL) subcut QHS blood sugar #15 mL 07/21/22 insulin lispro 100 unit/mL subcutaneous pen (Humalog KwikPen (U-100) Insulin) See Protocol subcut TIDAC #0 mL 07/21/22 cyclobenzaprine 5 mg tablet 5 mg PO TID PRN muscle spasm #21 tabs 11/26/23 gabapentin 100 mg capsule 100 mg PO .COMPLEX PRN pain 11/26/23 Mircera See Rx Instructions .Route .COMPLEX dialysis 12/16/23 Venofer iron 12/16/23 acetaminophen 325 mg capsule 325 mg PO Q4H PRN fever or pain 12/16/23 amlodipine 5 mg tablet 5 mg PO DAILY bp 12/16/23 antacid extra assorted fruit tablets 750 mg PO .every 4 hours PRN tums 12/16/23 atorvastatin 20 mg tablet 20 mg PO DAILY cholestrol 12/16/23 calcitriol 0.5 mcg capsule 0.5 mcg PO .COMPLEX on dialysis 12/16/23 calcium acetate(phosphat bind) 667 mg capsule 676 mg PO TID is on dialysis 12/16/23 carvedilol 12.5 mg tablet 12.5 mg PO BID heart and bp 12/16/23 cloNIDine See Rx Instructions .Route .COMPLEX dialysis 12/16/23 diphenhydramine 25 mg IV itching 12/16/23 folic acid 800 mcg tablet 0.8 mg PO DAILY supplement 12/16/23 hydralazine 25 mg tablet 25 mg PO TID bp 12/16/23 insulin aspart U-100 6 unit subcut TID blood glucose 12/16/23 insulin aspart U-100 100 unit/mL (3 mL) subcutaneous pen subcut 12/16/23 insulin glargine 100 unit/mL (3 mL) subcutaneous pen (Lantus Solostar U-100 Insulin) 20 unit subcut DAILY blood glucose 12/16/23 isosorbide dinitrate 10 mg tablet 20 mg PO TID bp and heart 12/16/23 levothyroxine 25 mcg tablet 25 mcg PO DAILY thyroid 12/16/23 lidocaine-silicone, adhesive topical pain 12/16/23 loperamide 2 mg capsule (Anti-Diarrheal (loperamide)) 2 mg PO Q4H PRN loose stool 12/16/23 melatonin 5 mg capsule 5 mg PO .bedtime sleep 12/16/23 nitroglycerin 0.4 mg sublingual tablet (Nitrostat) 0.4 mg sublingual Q5M chest pain 12/16/23 olanzapine 5 mg tablet 5 mg PO QHS sleep 12/16/23 ondansetron 4 mg disintegrating tablet 4 mg PO DAILY PRN nausea and vomiting 12/16/23 oxycodone-acetaminophen 5 mg-325 mg tablet 1 tab PO Q6H PRN pain 12/16/23 pramipexole dihydrochloride 1.5 mg PO BID unknown 12/16/23 promethazine 25 mg tablet 25 mg PO Q4H PRN nausea and vomiting 12/16/23 aspirin 81 mg capsule 81 mg PO DAILY #30 caps 12/26/23 cefepime 1 gram/50 mL in dextrose 5 % intravenous piggyback 1 g IV .as directed 12/26/23 Hospital Course Operations None Procedures None Summary of Care Provided Minutes Spent on Discharge: 45 Hospital Course: DIONY ROCHA, is a 58 F with a PMH as outlined who presents via the ED on 12/16/2023 with an episode of unresponsiveness in the dialysis suite. She was noted to be unresponsive retirement through dialysis. She had a right chest catheter for dialysis. She admitted to a fever and burning with urination. She denied any cough, chest pain, palpitations, dizziness, nausea, vomiting or any other symptoms. Patient was lethargic but was able to answer his questions. REveiw of systems was otherwise negative. Vitals in the ED at time of review were Bp of 171/79, NC of 120, RR of 20 and temp of 100.6F. She was saturating at 99% on room air. CBC showed hb of 8.9 and wbc of 7.8 with platelets of 204. INR was 1.2. Chemistry showed sodium of 138, potassium of 3.9 and Cr of 4.11. Urinalysis showed urine bacteria 1+. She was started on IV vancomycin and cefepime and is being admitted for UTI and possible dialysis catheter infection. She was started on IV vancomycin and zosyn. Nephrology was consulted. Blood cultures were positive for Staph aureus. She had 2D echo which was negative; HONG showed no evidence of a vegetation. Hospital course was complicated by new onset left sided weakness and slurred speech as well as facial droop. CT of the brain showed right ischemic infarct in ana right mCA territory which appeared to be subacute. MRI of the brain showed moderate sized area of subacute nonhemorrhagic infarct in the right hemisphere involving the posterior and right frontal, parietal lobes extending into the posterior insula. Neurology was consulted. She was on aspirin and plavix as well as high intensity statin. CTA head and neck showed calcified plaque at the origin of the right internal carotid artery causing between 50 to 69% stenosis as well as less than 50% narrowing at the origin of the left internal carotid artery. Vascular surgery was consulted and recommended she follow up with them on ouptatient basis. Carotid USG showed right ICA appears 45% stenosed. General surgery was also consulted for removal of fluid dialysis catheter due to the staph bacteremia. She had a temporary dialysis catheter inserted. Hospital course also was complicated with acute on chronic anemia which required blood transfusion. She was deemed as needing skilled therapy by her PCP. She remained stable and was discharged to [facility] on 12/26/20[facility]. She is to follow up with her PCP, ID and nephrology within 1-2 weeks. Patient seen and examined prior to discharge. He had no active complaints and had an uneventful night. Review of systems is otherwise negative. Home meds reviewed and reconciled. Physical Exam Const alert, oriented x3 and no apparent distress Constitutional Narrative: frail General Appearance: cooperative and comfortable Orientation / Consciousness: lethargic HEENT normocephalic, head/scalp atraumatic, hearing grossly normal bilaterally and moist oral mucous membranes Mouth: oral and palatal mucosa normal Eyes PERRL, EOMs intact bilaterally and conjunctivae normal Neck no lymphadenopathy and supple Lymph Lymphatic: no lymphadenopathy noted and no lymphedema noted Resp Resp Narrative: diminished breath sounds bibasally, no wheezes or crackles. on room air. Cardio regular rate, regular rhythm, S1 normal heart sound, S2 normal heart sound and no murmurs GI normal to inspection, nondistended, normoactive bowel sounds, soft to palpation, non-tender and non-distended Extremity normal capillary refill, no clubbing, cyanosis or edema and no calf tenderness Extremity Narrative: intact dressing over dialysis catheter site General Extremity: no tenderness to palpation of joints or extremities Skin Skin Narrative: temporary dialysis catheter General Skin Exam: no breakdown Neuro CN's II-XII intact bilaterally, no focal motor deficits and no sensory deficits noted Neuro Narrative: lethargic Motor Exam: strength 5/5 throughout and general weakness Psych thought process normal, cooperative and affect normal Psych Narrative: lethargic Appearance: appropriate Weight / BMI Weight Weight: 189 lb 9.561 oz Body Mass Index (BMI) 30.4 ABG / Lab / Microbiology Data 12/25/23 09:06 12/25/23 09:06 Laboratory: Laboratory Results - last 24 hr 12/25/23 16:11: POC Glucose 170 H 12/25/23 21:07: POC Glucose 177 H 12/26/23 06:56: POC Glucose 94 12/26/23 11:27: POC Glucose 95 Microbiology: Microbiology 12/20/23 10:16 Blood Culture (Wb) - Right Hand Blood Culture - Final No growth in 5 days. 12/19/23 08:44 Blood Culture (Wb) - Right Hand Blood Culture - Final No growth in 5 days. 12/19/23 09:00 Blood Culture (Wb) - Dialysis/Fistula Blood Culture - Final No growth in 5 days. 12/21/23 14:50 Blood Culture (Wb) - Arm Left Blood Culture - Preliminary No growth in 48 hours. 12/16/23 14:24 Blood Culture (Wb) - Anticubital Right Blood Culture - Final Staphylococcus aureus 12/16/23 14:45 Blood Culture (Wb) - Left Hand Blood Culture - Final Staphylococcus aureus 12/16/23 14:33 Urine, Catheterized Urine Culture - Final Culture exhibits no growth. 12/16/23 14:24 Mucosa - Nasopharyngeal SARS-CoV-2, Influenza & RSV (PCR) - Final D/C Instructions Discharge Diet: Low fat / Low cholesterol Discharge Activity: Return to Normal Activity Weight Bearing Status: Weight bearing as tolerated Call your doctor if you observe: Fever of 101 or Higher, Shortness of breath, Di zziness, Swelling in the ankles and Chest pain Meaningful Use Info Meaningful Use Diagnoses (Choose all that apply): Ischemic CVA CVA Therapy Assessed for PT,OT and/or ST?: Yes Ischemic Stroke Antithrombotic order at d/c?: Yes Dx of Atrial fib/flutter?: No Anticoagulant at discharge?: No Reason anticoagulant not ordered: Treatment not Indicated Statins at discharge?: Yes Primary Dx Acute Ischemic CVA?: Yes IV thrombolytic ordered during stay?: No Reason IV thrombolytic not ordered: Treatment not Indicated Discharge Plan Admission Admit Date/Time: 12/16/23 17:27 Primary Reason for Your Visit: Staph bacteremia Attending Provider: Rachel Okeefe Primary Care Provider: Raúl Eric Consulting Providers: Angel Joel; Kike Tlelo; Rachel Okeefe; Rodney Yates; Juan Alberto Mcgregor; David Solorzano; Jocelin Monk; Ary Hammond; Ella Mendosa; Carrol Betancur; Olaf Caceres; Vanessa Arora; Vincenzo Glass; Shayne Schwarz; Nano Watt; Landen Arthur; Analilia Gardner; Nicole Ramirez; April Hardy; Stanley Smallwood; Wm Rocha; Sherman King; Maxine Mancilla; Daniela Carranza; Kali Burciaga Instructions Patient Instructions: Staph MRSA Discharge Orders/Prescriptions Prescriptions: New cefepime in dextrose 5 % 1 gram/50 mL piggyback 1 g IV .as directed Rx Instructions: Dose with dialysis sessions. 1gm on Tue, 2gm on , 1gm on , 2gm on Tuesday. Stop date 01/30/24. Dx: MSSA endocarditis. Weekly bmp and cbc. Fax to [phone]. aspirin 81 mg capsule 81 mg PO DAILY Qty: 30 1RF No Action paroxetine HCl 20 mg tablet 20 mg PO DAILY Patient Comments: TAKE 1 TABLET BY MOUTH EVERY DAY IN THE EVENING bupropion HCl 150 mg tablet extended release 24 hr 150 mg PO DAILY Patient Comments: TAKE 1 TABLET BY MOUTH EVERY DAY sennosides-docusate sodium [Stool Softener-Stimulant Laxat] 8.6-50 mg Tablet 2 tab PO BID PRN PRN (Reason: Constipation) Qty: 0 0RF ascorbic acid (vitamin C) [Vitamin C] 500 mg Tablet 500 mg PO BID clopidogrel 75 mg tablet 75 mg PO DAILY pantoprazole 40 mg tablet,delayed release (DR/EC) 40 mg PO BIDCM ferrous sulfate 325 mg (65 mg iron) tablet 325 mg PO .three times a week Patient Comments: takes three times a week, on Tuesday, and Tuesday insulin lispro [Humalog KwikPen Insulin] 100 unit/mL Insulin Pen See Protocol subcut TIDAC Qty: 0 0RF Protocol: 1. Sliding Scale Insulin Low Dosing Condition: 150-224 mg/dl = 1 unit Condition: 225-299 mg/dl = 2 units Condition: 300-374 mg/dl = 3 units Condition: 375-499 mg/dl = 4 units Condition: Greater than 449 call physician Protocol Text: - Use for Total Daily Dose of Insulin 15-27 units - Thin, elderly, renal patients LOW DOSING ALGORITHM insulin glargine-yfgn 100 unit/mL (3 mL) insulin pen 5 unit subcut QHS Qty: 15 0RF Rx Instructions: Hold if glucose less than 130 mg/dl gabapentin 100 mg capsule 100 mg PO .COMPLEX PRN (Reason: pain) Rx Instructions: 100 mg orally 3 times a week Tuesday, Tuesday and Tuesday cyclobenzaprine 5 mg tablet 5 mg PO TID PRN (Reason: muscle spasm) Qty: 21 0RF atorvastatin 20 mg tablet 20 mg PO DAILY Patient Comments: TAKE 1 TABLET BY MOUTH EVERY DAY calcium acetate(phosphat bind) 667 mg capsule 676 mg PO TID Patient Comments: TAKE 1 CAPSULE BY MOUTH THREE TIMES A DAY WITH FOOD folic acid 800 mcg tablet 0.8 mg PO DAILY Patient Comments: TAKE 1 TABLET BY MOUTH EVERY DAY levothyroxine 25 mcg tablet 25 mcg PO DAILY Patient Comments: TAKE 1 TABLET BY MOUTH EVERY DAY BEFORE BREAKFAST insulin aspart U-100 100 unit/mL (3 mL) insulin pen SUBCUT Patient Comments: PLEASE SEE ATTACHED FOR DETAILED DIRECTIONS olanzapine 5 mg tablet 5 mg PO QHS Patient Comments: TAKE 1 TABLET BY MOUTH EVERYDAY AT BEDTIME oxycodone-acetaminophen 5-325 mg tablet 1 tab PO Q6H PRN (Reason: pain) Patient Comments: TAKE 1 TABLET BY MOUTH EVERY 6 HOURS NEEDED amlodipine 5 mg tablet 5 mg PO DAILY carvedilol 12.5 mg tablet 12.5 mg PO BID Rx Instructions: must administer with a meal/food hydralazine 25 mg tablet 25 mg PO TID insulin glargine [Lantus Solostar U-100 Insulin] 100 unit/mL (3 mL) insulin pen 20 unit subcut DAILY lidocaine-silicone, adhesive topical Patient Comments: 1 patch daily melatonin 5 mg capsule 5 mg PO .bedtime insulin aspart U-100 [Novolog FlexPen U-100 Insulin] 6 unit subcut TID Patient Comments: give with meals ondansetron 4 mg tablet,disintegrating 4 mg PO DAILY PRN (Reason: nausea and vomiting) pramipexole dihydrochloride 1.5 mg PO BID isosorbide dinitrate 10 mg Tablet 20 mg PO TID acetaminophen 325 mg capsule 325 mg PO Q4H PRN (Reason: fever or pain) antacid extra assorted fruit tablets 750 mg PO .every 4 hours PRN (Reason: tums) calcitriol 0.5 mcg capsule 0.5 mcg PO .COMPLEX Rx Instructions: 0.5 mcg orally three times a week; cloNIDine See Rx Instructions .ROUTE .COMPLEX Rx Instructions: 0.1mg every 4 hours as needed diphenhydramine 25 mg IV Rx Instructions: every 30 minutes as needed. loperamide [Anti-Diarrheal (loperamide)] 2 mg capsule 2 mg PO Q4H PRN (Reason: loose stool) Rx Instructions: administer after each loose stool until symptoms controlled; do not exceed 8 mg per 24 hrs Mircera See Rx Instructions .ROUTE .COMPLEX Rx Instructions: intravenous every 2 weeks nitroglycerin [Nitrostat] 0.4 mg tablet, sublingual 0.4 mg sublingual Q5M Rx Instructions: do not exceed 3 doses per episode promethazine 25 mg tablet 25 mg PO Q4H PRN (Reason: nausea and vomiting) Venofer Rx Instructions: 50 mg one time a week. Referrals / Follow Up: Raúl Eric MD [Primary Care Provider] - Within 2 Weeks Disposition Disposition (needs filled in before D/C Order can be placed): [facility]
--- NOTE | 2023-12-26 14:29 | CASEMGMT ---
LUCRETIA spoke with patient and her niece Yamel. SW let them both know patient's insurance approved patient and physician will send patient today. Yamel asked about transport. LUCRETIA told Yamel if she feels she can transport patient she can otherwise [facility] will set up transport. LUCRETIA told Yamel someone will give her a call as soon as a time has been arranged. LUCRETIA completed a PASRR in [employer] system. Plan: d/c to [facility] under skilled level of care on a PASRR. Physicians will transport patient. Kamilla MCCORD
[2023-12-26] MEDS: Isosorbide DN 20 MG Tablet PO (15:11)
[2023-12-26] MEDS: Gabapentin 100 MG Capsule PO (15:32)
--- NOTE | 2023-12-26 15:54 | CASEMGMT ---
Discharge Planning Discharge orders, signed med list, and transport time sent to [facility] via [facility]. Physicians will transport patient by wheelchair at 5:30p. Nursing, SW, and patient updated. Patient requested her daughter and niece be notified but unable d/t vm not being set up and incorrect number. SW updated. Rekha Moore, Discharge Planning Asst.
--- NOTE | 2023-12-26 15:57 | NURSING ---
Report called to wiliam
--- NOTE | 2023-12-26 16:00 | CASEMGMT ---
SW let patient know that SW is not able to get a hold of or leave a message for her daughter or niece. Patient said that is okay, they know she is going today. Plan: d/c to [facility] under skilled level of care on a PASRR. Physicians will transport patient via wheelchair van. Kamilla Tinsley ALGOLOGY TEACHER FLEX
[2023-12-26 17:19] LABS: Bedside Glucose 84 mg/dL (74-106)
[2023-12-27 14:02] LABS: Pathologist Review Reviewed
[2023-12-27 14:10] LABS: Pathologist Review Reviewed
== END 2023-12-26 18:56 | disposition skilled nursing facility (03) | DRG 314 ==
LOC: ED 17:21 → PCU 17:53
PROVIDERS: Anesthesiology; Internal Medicine; Surgery; Admitting Provider Student in an Organized Health Care Education/Training Program; Emergency Provider Emergency Medicine; PCP Family Medicine; Visit Provider Student in an Organized Health Care Education/Training Program
PROC: 0JH63XZ Insertion of Tunneled Vascular Access Device into Chest Subcutaneous Tissue and Fascia, Percutaneous Approach (ICD-10-PCS; principal; 2023-12-22 13:00)
DX: T80.211A Bloodstream infection due to central venous catheter, initial encounter (principal); I63.511 Cerebral infarction due to unspecified occlusion or stenosis of right middle cerebral artery; G93.41 Metabolic encephalopathy; N18.6 End stage renal disease; R78.81 Bacteremia; I12.0 Hypertensive chronic kidney disease with stage 5 chronic kidney disease or end stage renal disease; L97.419 Non-pressure chronic ulcer of right heel and midfoot with unspecified severity; N30.00 Acute cystitis without hematuria; D69.6 Thrombocytopenia, unspecified; E11.610 Type 2 diabetes mellitus with diabetic neuropathic arthropathy; D63.8 Anemia in other chronic diseases classified elsewhere; E11.42 Type 2 diabetes mellitus with diabetic polyneuropathy; E11.22 Type 2 diabetes mellitus with diabetic chronic kidney disease; E11.621 Type 2 diabetes mellitus with foot ulcer; E11.65 Type 2 diabetes mellitus with hyperglycemia; Z99.2 Dependence on renal dialysis; Z79.4 Long term (current) use of insulin; E03.9 Hypothyroidism, unspecified; I25.5 Ischemic cardiomyopathy; E78.5 Hyperlipidemia, unspecified; K21.9 Gastro-esophageal reflux disease without esophagitis; I25.10 Atherosclerotic heart disease of native coronary artery without angina pectoris; F41.8 Other specified anxiety disorders; M54.50 Low back pain, unspecified; I25.2 Old myocardial infarction; G89.29 Other chronic pain; Z79.02 Long term (current) use of antithrombotics/antiplatelets; Z86.16 Personal history of COVID-19; B95.61 Methicillin susceptible Staphylococcus aureus infection as the cause of diseases classified elsewhere; Z79.82 Long term (current) use of aspirin; R50.9 Fever, unspecified; Z11.52 Encounter for screening for COVID-19; Z79.899 Other long term (current) drug therapy; Z95.5 Presence of coronary angioplasty implant and graft; Z86.73 Personal history of transient ischemic attack (TIA), and cerebral infarction without residual deficits; Z79.890 Hormone replacement therapy; R47.81 Slurred speech; R29.706 NIHSS score 6
CPT/HCPCS: 36415; 51702; 70450; 70496; 70498; 70551; 71045; 77001; 80048; 80053; 80061; 81001; 82962; 83036; 83605; 83735; 84100; 85025; 85610; 85652; 85730; 86850; 86900; 86901; 86920; 86922; 87040; 87077; 87086; 87149; 87186; 87631; 90937; 92526; 92610; 93005; 93306; 93312; 93320; 93325; 94762; 97110; 97116; 97162; 97166; 97168; 97530; 97535; 97802; 99284; 99285; J2185; J7030; J7040; P9016; Q9967; A4216; G0257; J2405; Q5106

== ENCOUNTER → 2024-01-09 04:00 | Outpatient (REF) | payer MEDICARE, MEDICAID, SELFPAY ==
[2018-09-21 13:23] VITALS: BMI 29.3
[2024-01-09 08:46] LABS: Erythrocyte Sedimentation Rate 60 mm/hr (0-30)
[2024-01-09 08:54] LABS: Absolute Lymphocyte Count 0.83 X10^3/uL (0.83-4.51); Absolute Neutrophil Count 2.9 X10^3/uL (2.0-7.7); Basophil# 0.05 X10^3/uL; Basophil% 1.2 % (0-1); Eosinophil# 0.21 X10^3/uL; Eosinophils% 4.8 % (0-5); Hematocrit 30.3 % (37-47); Hemoglobin 9.5 g/dL (12.0-15.0); Lymphocyte # 0.83 X10^3/ul (0.83-4.51); Lymphocyte % 19.2 % (19-41); Mean Corp Hgb Conc 31.4 g/dL (32-36); Mean Corpuscular Hgb 31.8 pg (27.0-32.0); Mean Corpuscular Volume 101.3 fL (81-99); Mean Platelet Vol. 10.5 fl (6.2-12.0); Monocyte% 6.9 % (0-10); NRBC Flagged by Analyzer 0 % (0-5); Neutrophil # 2.93 X10^3/uL (2.7-7.7); Neutrophil % 67.7 % (47-70); Platelet Count 280 K/mm3 (150-450); RBC Distribution Width CV 16.2 % (11.6-14.6); RBC Distribution Width SD 60.2 fl (35.1-43.9); Red Blood Count 2.99 M/mm3 (4.2-5.4); White Blood Count 4.3 K/mm3 (4.4-11.0)
[2024-01-09 09:39] LABS: Anion Gap 6 (5-15); BUN 50 mg/dL (7-18); BUN/Creat Ratio 8.6 RATIO (10-20); CRP < 2.90 mg/L (0.0-3.0); Calcium,Total 9.4 mg/dL (8.5-10.1); Chloride 107 mmol/L (98-107); Creatinine, Serum 5.82 mg/dL (0.55-1.02); EST Glomerular Filtration Rate 8 mL/min (>60); Est Glom Filt Rate - Afr Amer 10 mL/min (>60); Glucose 40 mg/dL (74-106); Sodium Level 139 mmol/L (136-145)
== END ==
LOC: OLS.SW 04:00
PROVIDERS: PCP Family Medicine; Referring Provider Internal Medicine; Visit Provider Internal Medicine
DX: I12.9 Hypertensive chronic kidney disease with stage 1 through stage 4 chronic kidney disease, or unspecified chronic kidney disease (principal); E11.22 Type 2 diabetes mellitus with diabetic chronic kidney disease; N18.9 Chronic kidney disease, unspecified; G93.40 Encephalopathy, unspecified
CPT/HCPCS: 36415; 80048; 85025; 85652; 86140

== ENCOUNTER 2024-01-21 12:23 | Observation (INO) | payer MEDICARE, MEDICAID, SELFPAY ==
[2018-09-21 13:23] VITALS: BMI 29.3
[2024-01-21] VITALS (11 sets, daily range): BP systolic 79–130; BP diastolic 54–76; PULSE 45–86; RESP 12–25; TEMP 35.5–36.6; O2SAT 94–100; BMI 27.9; BMI 26.8
--- NOTE | 2024-01-21 12:28 | EKG12_ITS ---
Test Reason : Blood Pressure : / mmHG Vent. Rate : 088 BPM Atrial Rate : 088 BPM P-R Int : 168 ms QRS Dur : 090 ms QT Int : 396 ms P-R-T Axes : 046 015 031 degrees QTc Int : 479 ms Normal sinus rhythm Normal ECG When compared with ECG of 22-DEC-2023 05:45, No significant change was found Confirmed by DOMINIQUE MENJIVAR MD ([id number]), film editor supervisor DAVID CARCAMO ([id number]) on 01/24/2024 8:34:37 AM Referred By: KIERSTEN Confirmed By:DOMINIQUE MENJIVAR MD
--- NOTE | 2024-01-21 12:28 | RAD_ITS ---
STUDY: X-RAY CHEST REASON FOR EXAM: Female, 58 years old. Shortness of breath TECHNIQUE: Single AP portable view of the chest. COMPARISON: December 22, 2023 FINDINGS: Central catheter on the left extends to the superior vena cava. There is stable elevation of the right hemidiaphragm. There is mild right lower lung scarring or atelectasis. There is no demonstrated pleural abnormality. Normal size heart. Normal mediastinum and evlie. Normal visualized pulmonary arteries. Normal visualized aortic arch and descending thoracic aorta. There is postoperative change of the lower thoracic and upper lumbar spine with screws and rods and corpectomy. Normal visualized ribs, clavicles, and shoulders. There is no demonstrated abnormality of the visualized soft tissue structures of the upper abdomen. RAD/Chest 1 View (Portable) IMPRESSION: Right lower lung scarring or atelectasis. Electronically Signed: Shayne Rojas MD at 13:26 EDT ,
[2024-01-21 12:49] LABS: Bedside Glucose 192 mg/dL (74-106)
[2024-01-21] MEDS: 0.9% Normal Saline (1000mL) 1,000 ML 999 ML IV (12:54)
[2024-01-21 12:56] LABS: Blood Gas Specimen Type VEN; O2 Delivery Device Cannula; SITE Not entered; VBG BASE EXCESS 2 mmol/L (-1.0-3.5); VBG Bicarbonate 27 mmol/L (22-26); VBG PO2 35 mmHg (25-40); VBG SO2 66 % (50-70); VBG TCO2 28 mmol/L (23-33); VBG pCO2 44.3 mmHg (41-51); VBG pH 7.39 (7.32-7.42)
--- NOTE | 2024-01-21 13:12 | EX.ED.DYSGE1 ---
HPI History of Present Illness Chief Complaint: Unresponsive Narrative Narrative: 58-year-old female presents via EMS with mental status change/unresponsiveness. It was reported that she was recently discharged from [facility]. Family called EMS because patient was less responsive. This happened 15 minutes prior to their arrival. Her history and physical is limited secondary to her drowsiness. They report that daughter did a blood sugar which was normal. She has been seen multiple times in the emergency department reportedly with hypoglycemia and blood sugar problems. Patient is also a dialysis patient who states that she did have dialysis on Tuesday. She denies any pain but states I cannot breathe. She is intermittently drowsy. They also report that she has had blood pressures in the 70s systolic. [facility] Medical History Acquired varus deformity of left foot Acquired varus deformity of right foot Acute lumbar radiculopathy Acute on chronic anemia Adult failure to thrive Amputation foot, bilat Anemia due to chronic illness Anemia in chronic illness Anxiety and depression Atherosclerosis of [place] coronary artery of [place] heart without angina pectoris Back pain, chronic Bilateral edema of lower extremity Carotid artery stenosis Cellulitis Cellulitis of both lower extremities Charcot's joint of right foot Charcot's joint, left ankle and foot Charcot's joint, right ankle and foot Chronic anemia Chronic foot pain Chronic kidney disease, stage 3b Chronic kidney disease, stage 4 (severe) Chronic renal disease, stage 4, severely decreased glomerular filtration rate (GFR) between 15-29 mL/min/1.73 square meter Chronic renal insufficiency Chronic ulcer of left foot with fat layer exposed 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 Chronic ulcer of right foot with fat layer exposed Chronic ulcer of right foot with necrosis of bone Chronic ulcer of right foot with necrosis of muscle Chronic ulcer of right leg with fat layer exposed COVID-19 (08/28/21) CRF (chronic renal failure) Debility Delayed wound healing Diabetes Diabetes mellitus with diabetic polyneuropathy Diabetic foot ulcer associated with type 2 diabetes mellitus Diabetic foot ulcers Diabetic infection of left foot Diabetic polyneuropathy Diabetic ulcer of right ankle Elevated troponin End stage renal disease ESRD on hemodialysis Essential (primary) hypertension Essential hypertension Foot osteomyelitis, left GERD (gastroesophageal reflux disease) Hemoglobin A1c greater than 9.0% HLD (hyperlipidemia) Hyperparathyroidism, secondary renal Hypertension Iron deficiency anemia Ischemic cardiomyopathy MSSA bacteremia Myocardial infarct Non-compliance Non-pressure chronic ulcer of other part of left foot with fat layer exposed Non-pressure chronic 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 layer exposed Non-smoker Normocytic anemia NSTEMI (non-ST elevated myocardial infarction) (09/20/18) Obesity (BMI 30.0-34.9) Osteomyelitis Osteomyelitis of left foot Osteomyelitis of metatarsal RLS (restless legs syndrome) Stage 4 chronic kidney disease TIA (transient ischemic attack) Type 2 diabetes mellitus 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 Ulcer of left foot with fat layer exposed Ulcer of left foot with muscle involvement without evidence of necrosis Ulcer of left foot with necrosis of muscle Ulcer of right lower extremity with fat layer exposed Home Medications paroxetine HCl 20 mg tablet 20 mg PO DAILY DEPRESSION 07/07/21 [History Last Taken 04/07/22] bupropion HCl 150 mg 24 hr tablet, extended release 150 mg PO DAILY mood 02/04/22 [History Last Taken 04/07/22] sennosides 8.6 mg-docusate sodium 50 mg tablet (Stool Softener-Stimulant Laxative) 2 tab PO BID PRN PRN Constipation #0 tabs 04/24/22 [Rx Last Taken Unknown] ascorbic acid (vitamin C) 500 mg tablet (Vitamin C) 500 mg PO BID supplement 05/05/22 [History Last Taken Unknown] clopidogrel 75 mg tablet 75 mg PO DAILY prevent stroke 07/19/22 [History Last Taken Unknown] ferrous sulfate 325 mg (65 mg iron) tablet 325 mg PO .three times a week anemia 07/19/22 [History Last Taken Unknown] pantoprazole 40 mg tablet,delayed release 40 mg PO BIDCM GERD 07/19/22 [History Last Taken Unknown] insulin glargine-yfgn 100 unit/mL (3 mL) subcutaneous pen 5 unit (0.05 mL) subcut QHS blood sugar #15 mL 07/21/22 [Rx Last Taken Unknown] insulin lispro 100 unit/mL subcutaneous pen (Humalog KwikPen (U-100) Insulin) See Protocol subcut TIDAC #0 mL 07/21/22 [Rx Last Taken Unknown] cyclobenzaprine 5 mg tablet 5 mg PO TID PRN muscle spasm #21 tabs 11/26/23 [Rx Last Taken Unknown] gabapentin 100 mg capsule 100 mg PO .COMPLEX PRN pain 11/26/23 [History Last Taken Unknown] Mircera See Rx Instructions .Route .COMPLEX dialysis 12/16/23 [History Last Taken Unknown] Venofer iron 12/16/23 [History Last Taken Unknown] acetaminophen 325 mg capsule 325 mg PO Q4H PRN fever or pain 12/16/23 [History Last Taken Unknown] amlodipine 5 mg tablet 5 mg PO DAILY bp 12/16/23 [History Last Taken Unknown] antacid extra assorted fruit tablets 750 mg PO .every 4 hours PRN tums 12/16/23 [History Last Taken Unknown] atorvastatin 20 mg tablet 20 mg PO DAILY cholestrol 12/16/23 [History Last Taken Unknown] calcitriol 0.5 mcg capsule 0.5 mcg PO .COMPLEX on dialysis 12/16/23 [History Last Taken Unknown] calcium acetate(phosphat bind) 667 mg capsule 676 mg PO TID is on dialysis 12/16/23 [History Last Taken Unknown] carvedilol 12.5 mg tablet 12.5 mg PO BID heart and bp 12/16/23 [History Last Taken Unknown] cloNIDine See Rx Instructions .Route .COMPLEX dialysis 12/16/23 [History Last Taken Unknown] diphenhydramine 25 mg IV itching 12/16/23 [History Last Taken Unknown] folic acid 800 mcg tablet 0.8 mg PO DAILY supplement 12/16/23 [History Last Taken Unknown] hydralazine 25 mg tablet 25 mg PO TID bp 12/16/23 [History Last Taken Unknown] insulin aspart U-100 6 unit subcut TID blood glucose 12/16/23 [History Last Taken Unknown] insulin aspart U-100 100 unit/mL (3 mL) subcutaneous pen subcut 12/16/23 [History Last Taken Unknown] insulin glargine 100 unit/mL (3 mL) subcutaneous pen (Lantus Solostar U-100 Insulin) 20 unit subcut DAILY blood glucose 12/16/23 [History Last Taken Unknown] isosorbide dinitrate 10 mg tablet 20 mg PO TID bp and heart 12/16/23 [History Last Taken Unknown] levothyroxine 25 mcg tablet 25 mcg PO DAILY thyroid 12/16/23 [History Last Taken Unknown] lidocaine-silicone, adhesive topical pain 12/16/23 [History Last Taken Unknown] loperamide 2 mg capsule (Anti-Diarrheal (loperamide)) 2 mg PO Q4H PRN loose stool 12/16/23 [History Last Taken Unknown] melatonin 5 mg capsule 5 mg PO .bedtime sleep 12/16/23 [History Last Taken Unknown] nitroglycerin 0.4 mg sublingual tablet (Nitrostat) 0.4 mg sublingual Q5M chest pain 12/16/23 [History Last Taken Unknown] olanzapine 5 mg tablet 5 mg PO QHS sleep 12/16/23 [History Last Taken Unknown] ondansetron 4 mg disintegrating tablet 4 mg PO DAILY PRN nausea and vomiting 12/16/23 [History Last Taken Unknown] oxycodone-acetaminophen 5 mg-325 mg tablet 1 tab PO Q6H PRN pain 12/16/23 [History Last Taken Unknown] pramipexole dihydrochloride 1.5 mg PO BID unknown 12/16/23 [History Last Taken Unknown] promethazine 25 mg tablet 25 mg PO Q4H PRN nausea and vomiting 12/16/23 [History Last Taken Unknown] aspirin 81 mg capsule 81 mg PO DAILY #30 caps 12/26/23 [Rx Last Taken Unknown] cefepime 1 gram/50 mL in dextrose 5 % intravenous piggyback 1 g IV .as directed 12/26/23 [Rx Last Taken Unknown] Allergy/AdvReac Type Severity Reaction Status Date / Time Penicillins Allergy swelling Verified 01/21/24 12:23 in throat vancomycin Allergy Itching Verified 01/21/24 12:23 metronidazole AdvReac Nausea Verified 01/21/24 12:23 oxycodone [From OxyContin] AdvReac Shortness Verified 01/21/24 12:23 of breath Family History Mother Diabetes CVA (cerebral vascular accident) Brother CAD (coronary artery disease) CABG X 3 Cancer testicular Diabetes Brother CAD (coronary artery disease) CABG X3 Diabetes Brother CAD (coronary artery disease) Stents Diabetes Sister CAD (coronary artery disease) CABG x 3 CVA (cerebral vascular accident) Diabetes Surgical History History of bilateral carpal tunnel release History of History of coronary artery stent placement (12/31/20) History of foot surgery History of rotator cuff surgery Social History household members: none number of children: 2 current occupational status: disabled Smoking Status: Never smoker alcohol intake: never substance use type: does not use caffeine: Yes Type: carbonated beverages Number of servings: 2 ROS ROS ED ROS Narrative Mildly limited secondary to patient's decreased mental status. Constitutional: No fever, no chills. Denies pain. HEENT: No sore throat. No neck pain. No loss of vision. No rhinorrhea. Cardiovascular: No chest pain. No palpitations. No pedal edema. Respiratory: No cough, positive shortness of breath. I cannot breathe. I need a mask with medicine Abdominal: No abdominal pain. No nausea. No vomiting. Genitourinary: No dysuria. No hematuria. Musculoskeletal: No myalgias. No arthralgias. Neurologic: No headaches. No dizziness. No lightheadedness. Skin: No rash. No change in color. Psychiatric: No depression. No anxiety. Review of Systems ROS Unobtainable: due to mental status EXAM Physical Exam Narrative Exam Narrative: Afebrile. Vital signs noted. Opens eyes to sternal rub. HEENT: Normocephalic. Atraumatic. PERRL, EOMI. Neck soft and supple. No point tenderness or step off. Cardiovascular: Regular rate and rhythm. No murmurs, rubs, or gallops appreciated. Respiratory: No tachypnea. Lungs clear to auscultation bilaterally. Gastrointestinal: Abdomen soft, nontender, with normoactive bowel sounds. No rebound or guarding. Neurological: Awake. Alert. Intermittently. Nonfocal, nonlateralizing. Skin: No rash. Normal color. No pallor. Musculoskeletal: No pedal edema. Full range of motion extremities. Const Vital Signs: 01/21/24 12:23 01/21/24 12:28 01/21/24 12:28 Temperature 96 F L 96 F L Temperature Source Temporal Temporal Pulse Rate 86 86 Respiratory Rate 25 H 25 H Blood Pressure 79/54 L 79/54 L Blood Pressure Mean 62 62 Pulse Ox 98 98 Oxygen Delivery Method Room Air Room Air Room Air Oxygen Flow Rate (L/min) 01/21/24 12:53 01/21/24 13:15 01/21/24 13:39 Temperature 97.5 F L Temperature Source Oral Pulse Rate 80 74 Respiratory Rate 18 12 Blood Pressure 105/57 L 104/60 Blood Pressure Mean 73 74 Pulse Ox 100 100 99 Oxygen Delivery Method Nasal Cannula Nasal Cannula Nasal Cannula Oxygen Flow Rate (L/min) 3 2 2 01/21/24 13:47 01/21/24 14:05 Temperature Temperature Source Pulse Rate 75 75 Respiratory Rate 16 16 Blood Pressure 123/61 H 120/56 L Blood Pressure Mean 81 77 Pulse Ox 100 100 Oxygen Delivery Method Nasal Cannula Nasal Cannula Oxygen Flow Rate (L/min) 2 2 MDM MDM MDM Narrative Medical decision making narrative: Patient is hypotensive on arrival. In discussion with her family member, they reported to RN that patient had a systolic blood pressure of 100, and the [facility] nurse administered 3 antihypertensive medications. Patient will be bolused normal saline. Sepsis workup will be pursued as in review of her prior ED visits she has become septic in the past. Her [id number] glucose was obtained and reviewed and is appropriately elevated at 192. Currently, I do not feel that CT of the brain is indicated. I reviewed her laboratory work and she has normal white count of 7.4, hemoglobin 11.5, hematocrit 37.5, platelet count normal at 401. INR is normal at 1.5, sodium is slightly low at 133 with a potassium of 5.5. However there is slight hemolysis of the potassium so it may be falsely elevated. EKG was obtained and interpreted by myself as normal sinus rhythm at 88 bpm without ectopy or acute ST changes. No STEMI. I do not feel that she has cardiac instability requiring calcium at this time. Review of her other electrolyte panel shows a BUN of 43 and creatinine 6.21 consistent with her end-stage renal disease. Patient does state that she received all of her dialysis yesterday as she gets it Tuesday, Tuesday, and Tuesday. Further workup for her sepsis shows her lactic acid to be normal at 1.7. [id number] glucose elevated at 192. Upon repeat examination after a fluid bolus, her pressure is 120/56. She is not tachycardic. Although she was flagging sepsis, I do not feel that there is a source as I independently interpreted her chest x-ray and see no evidence of pneumothorax or pneumonia. I do not feel antibiotics are indicated. Tirado catheter was placed and she has not produced urine yet, and I am unsure as to how much urine she actually produces as she is end-stage renal disease. She was placed on nasal cannula oxygen more for comfort because she complained that she could not breathe. I obtained a venous blood gas which shows her pH to be 7.38, pCO2 of 44.3 so I do not think that she has carbon dioxide retention, and a pO2 of 34 which once again is venous and normal. Her mental status has improved, but I am reluctant to give her any opiate medications given her previous hypotension. I do think that it was probably because of overmedication with her antihypertensives. I discussed patient with Dr. Thompson for observation on medical surgical floor. Patient is in stable condition. History & Record Review Additional record(s) reviewed:: Prior ED visit and Prior labs Lab Data Attestation: I reviewed the patient's lab results. Labs: Laboratory Results - last 24 hr 01/21/24 01/21/24 12:31 12:50 WBC 7.4 RBC 3.70 L Hgb 11.5 L Hct 37.5 MCV 101.4 H MCH 31.1 MCHC 30.7 L RDW Std Deviation 59.0 H RDW Coeff of Fior 15.9 H Plt Count 401 MPV 10.2 Immature Gran % (Auto) 0.700 Neut % (Auto) 67.6 Lymph % (Auto) 20.0 Cooper % (Auto) 8.0 Eos % (Auto) 2.7 Baso % (Auto) 1.0 Absolute Neuts (auto) 5.0 Absolute Lymphs (auto) 1.47 Nucleated RBC % 0 PT 18.2 H INR 1.5 APTT 41.7 H Sodium 133 L Potassium 5.5 H Chloride 97 L Carbon Dioxide 28.0 Anion Gap 8 BUN 43 H Creatinine 6.21 H Estim Creat Clear Calc 10.47 Est GFR (MDRD) Af Amer 9 L Est GFR (MDRD) Non-Af 7 L BUN/Creatinine Ratio 6.9 L Glucose 197 H Lactic Acid 1.7 Calcium 9.7 Total Bilirubin 0.40 AST 35 ALT 9 L Alkaline Phosphatase 264 H Total Protein 9.8 H Albumin 4.0 Globulin 5.8 H Albumin/Globulin Ratio 0.7 L POC Glucose 192 H ABG Data ABG results: ABG 01/21/24 12:53 Specimen Type SHAUN Sample Site Not entered O2 % 3.0 VBG pH 7.39 VBG pO2 35 VBG HCO3 27 H VBG Total CO2 28 VBG O2 Sat (Calc) 66 VBG Base Excess 2 POC Mix VBG pCO2 Pt Tmp 44.3 O2 Delivery Device Cannula Radiography Diagnostic Testing: Clinical Impression(s) from Imaging Studies Chest X-Ray 01/21/24 12:28 IMPRESSION: Right lower lung scarring or atelectasis. Electronically Signed: Shayne Rojas MD at 13:26 EDT , Management Discussion w/another healthcare provider: Hospitalist (Dr. Thompson) Discharge Plan Dx/Rx/DC Orders Clinical Impression: Mental status, decreased, ESRD on dialysis, Hypotension Disposition Disposition: Acute Care [facility]
[2024-01-21 13:15] LABS: Absolute Lymphocyte Count 1.47 X10^3/uL (0.83-4.51); Basophil# 0.07 X10^3/uL; Eosinophils% 2.7 % (0-5); Hematocrit 37.5 % (37-47); Hemoglobin 11.5 g/dL (12.0-15.0); Lymphocyte # 1.47 X10^3/ul (0.83-4.51); Mean Corp Hgb Conc 30.7 g/dL (32-36); Mean Corpuscular Hgb 31.1 pg (27.0-32.0); Mean Corpuscular Volume 101.4 fL (81-99); Mean Platelet Vol. 10.2 fl (6.2-12.0); Monocyte# 0.59 X10^3/uL; NRBC Flagged by Analyzer 0 % (0-5); Neutrophil # 4.98 X10^3/uL (2.7-7.7); Neutrophil % 67.6 % (47-70); Platelet Count 401 K/mm3 (150-450); RBC Distribution Width CV 15.9 % (11.6-14.6); White Blood Count 7.4 K/mm3 (4.4-11.0)
--- NOTE | 2024-01-21 13:15 | ED.RN ---
pts niece that lives with patient called in and informs this rn that visiting home health nurse that came in gave pt all of her scheduled bp meds even though her blood pressure was low (100/60) this morning. pt received amlodipine, carvedilol and hydralazine this morning even though she has bp parameters to hold if below a certain number. dr cade notified.
[2024-01-21 13:20] LABS: International Normalized Ratio 1.5; Prothrombin Time (Protime)PT. 18.2 SECONDS (11.7-14.9)
[2024-01-21 13:21] LABS: Partial Thromboplast Time 41.7 Seconds (24.1-36.2)
[2024-01-21 13:27] LABS: Lactic Acid 1.7 mmol/L (0.4-1.9)
[2024-01-21 13:34] LABS: ALB/GLOB Ratio 0.7 RATIO (0.9-2.4); AST(SGOT) 35 U/L (15-37); Alanine Aminotransfer ALT/SGPT 9 U/L (13-56); Alkaline Phosphatase 264 U/L (45-117); Anion Gap 8 (5-15); BUN 43 mg/dL (7-18); BUN/Creat Ratio 6.9 RATIO (10-20); Calcium,Total 9.7 mg/dL (8.5-10.1); Chloride 97 mmol/L (98-107); Creatinine, Serum 6.21 mg/dL (0.55-1.02); EST Glomerular Filtration Rate 7 mL/min (>60); Est Glom Filt Rate - Afr Amer 9 mL/min (>60); Estimated Creatinine Clearance 10.47 ml/min; Globulin 5.8 g/dL (2.2-4.2); Glucose 197 mg/dL (74-106); Potassium 5.5 mmol/L (3.5-5.1); Protein, Total 9.8 g/dL (6.4-8.2); Sodium Level 133 mmol/L (136-145)
--- NOTE | 2024-01-21 13:43 | ED.RN ---
end tidal 39
--- NOTE | 2024-01-21 13:47 | ED.RN ---
fluid resuscitation not ordered. pt states she is on dialysis.
[2024-01-21] MEDS: 0.9% Normal Saline (500mL Bag) 500 ML 999 ML IV (15:25)
--- NOTE | 2024-01-21 16:06 | HP.PCM.HOS_ITS ---
HPI - General General Date of Admission: 01/21/24 Date of Service: 01/21/24 Chief Complaint: Acute altered mental status HPI Narrative DIONY ROCHA, is a 58 F with past medical history of type 2 diabetes poorly controlled, diabetic nephropathy complicated by end-stage renal disease on Tuesday hemodialysis through a port, diabetic foot s/p amputation of 3 toes in her left feet due to osteomyelitis, carotid artery stenosis, anemia of chronic disease, GERD, history of TIA who was brought to the ED for concerns regarding acute loss of consciousness from home. Per her niece Kira bedside, the patient received 3 doses of her antihypertensive medications at home. This was by a new nurse who started today. Following the medications she fell tired and became difficult to arouse. She was brought to the ED and her initial blood pressure was in systolics of 70s/40s. Per the niece, she has labile hypertension and response to blood pressure medications especially after the days of her dialysis. The niece provides her medications only as needed if the blood pressures are extremely high with systolics greater than 180. She was recently discharged from [facility], she was being evaluated for hypoglycemia. Per the niece this occurred due to 2 boluses of insulin provided by her daughter to manage her hyperglycemia. Per the patient, there are no prodromal symptoms, no fever/vision changes/tremulousness/weakness in her limbs/changes in her speech/nausea vomiting. She underwent her dialysis yesterday. [facility] Medical History Acquired varus deformity of left foot Acquired varus deformity of right foot Acute lumbar radiculopathy Acute on chronic anemia Adult failure to thrive Amputation foot, bilat Anemia due to chronic illness Anemia in chronic illness Anxiety and depression Atherosclerosis of [place] coronary artery of [place] heart without angina pectoris Back pain, chronic Bilateral edema of lower extremity Carotid artery stenosis Cellulitis Cellulitis of both lower extremities Charcot's joint of right foot Charcot's joint, left ankle and foot Charcot's joint, right ankle and foot Chronic anemia Chronic foot pain Chronic kidney disease, stage 3b Chronic kidney disease, stage 4 (severe) Chronic renal disease, stage 4, severely decreased glomerular filtration rate (GFR) between 15-29 mL/min/1.73 square meter Chronic renal insufficiency Chronic ulcer of left foot with fat layer exposed 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 Chronic ulcer of right foot with fat layer exposed Chronic ulcer of right foot with necrosis of bone Chronic ulcer of right foot with necrosis of muscle Chronic ulcer of right leg with fat layer exposed COVID-19 (08/28/21) CRF (chronic renal failure) Debility Delayed wound healing Diabetes Diabetes mellitus with diabetic polyneuropathy Diabetic foot ulcer associated with type 2 diabetes mellitus Diabetic foot ulcers Diabetic infection of left foot Diabetic polyneuropathy Diabetic ulcer of right ankle Elevated troponin End stage renal disease ESRD on hemodialysis Essential (primary) hypertension Essential hypertension Foot osteomyelitis, left GERD (gastroesophageal reflux disease) Hemoglobin A1c greater than 9.0% HLD (hyperlipidemia) Hyperparathyroidism, secondary renal Hypertension Iron deficiency anemia Ischemic cardiomyopathy MSSA bacteremia Myocardial infarct Non-compliance Non-pressure chronic ulcer of other part of left foot with fat layer exposed Non-pressure chronic 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 layer exposed Non-smoker Normocytic anemia NSTEMI (non-ST elevated myocardial infarction) (09/20/18) Obesity (BMI 30.0-34.9) Osteomyelitis Osteomyelitis of left foot Osteomyelitis of metatarsal RLS (restless legs syndrome) Stage 4 chronic kidney disease TIA (transient ischemic attack) Type 2 diabetes mellitus 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 Ulcer of left foot with fat layer exposed Ulcer of left foot with muscle involvement without evidence of necrosis Ulcer of left foot with necrosis of muscle Ulcer of right lower extremity with fat layer exposed Home Medications paroxetine HCl 20 mg tablet 20 mg PO DAILY DEPRESSION 07/07/21 [History Last Taken 04/07/22] bupropion HCl 150 mg 24 hr tablet, extended release 150 mg PO DAILY mood 01/09 05/31 [History Last Taken 04/07/22] sennosides 8.6 mg-docusate sodium 50 mg tablet (Stool Softener-Stimulant Laxative) 2 tab PO BID PRN PRN Constipation #0 tabs 04/24/22 [Rx Last Taken Unknown] ascorbic acid (vitamin C) 500 mg tablet (Vitamin C) 500 mg PO BID supplement 05/05/22 [History Last Taken Unknown] clopidogrel 75 mg tablet 75 mg PO DAILY prevent stroke 07/19/22 [History Last Taken Unknown] ferrous sulfate 325 mg (65 mg iron) tablet 325 mg PO .three times a week anemia 07/19/22 [History Last Taken Unknown] pantoprazole 40 mg tablet,delayed release 40 mg PO BIDCM GERD 07/19/22 [History Last Taken Unknown] insulin glargine-yfgn 100 unit/mL (3 mL) subcutaneous pen 5 unit (0.05 mL) subcut QHS blood sugar #15 mL 07/21/22 [Rx Last Taken Unknown] insulin lispro 100 unit/mL subcutaneous pen (Humalog KwikPen (U-100) Insulin) See Protocol subcut TIDAC #0 mL 07/21/22 [Rx Last Taken Unknown] cyclobenzaprine 5 mg tablet 5 mg PO TID PRN muscle spasm #21 tabs 11/26/23 [Rx Last Taken Unknown] gabapentin 100 mg capsule 100 mg PO .COMPLEX PRN pain 11/26/23 [History Last Taken Unknown] Mircera See Rx Instructions .Route .COMPLEX dialysis 12/16/23 [History Last Taken Unknown] Venofer iron 12/16/23 [History Last Taken Unknown] acetaminophen 325 mg capsule 325 mg PO Q4H PRN fever or pain 12/16/23 [History Last Taken Unknown] amlodipine 5 mg tablet 5 mg PO DAILY bp 12/16/23 [History Last Taken Unknown] antacid extra assorted fruit tablets 750 mg PO .every 4 hours PRN tums 12/16/23 [History Last Taken Unknown] atorvastatin 20 mg tablet 20 mg PO DAILY cholestrol 12/16/23 [History Last Taken Unknown] calcitriol 0.5 mcg capsule 0.5 mcg PO .COMPLEX on dialysis 12/16/23 [History Last Taken Unknown] calcium acetate(phosphat bind) 667 mg capsule 676 mg PO TID is on dialysis 12/16/23 [History Last Taken Unknown] carvedilol 12.5 mg tablet 12.5 mg PO BID heart and bp 12/16/23 [History Last Taken Unknown] cloNIDine See Rx Instructions .Route .COMPLEX dialysis 12/16/23 [History Last Taken Unknown] diphenhydramine 25 mg IV itching 12/16/23 [History Last Taken Unknown] folic acid 800 mcg tablet 0.8 mg PO DAILY supplement 12/16/23 [History Last Taken Unknown] hydralazine 25 mg tablet 25 mg PO TID bp 12/16/23 [History Last Taken Unknown] insulin aspart U-100 6 unit subcut TID blood glucose 12/16/23 [History Last Taken Unknown] insulin aspart U-100 100 unit/mL (3 mL) subcutaneous pen subcut 12/16/23 [History Last Taken Unknown] insulin glargine 100 unit/mL (3 mL) subcutaneous pen (Lantus Solostar U-100 Insulin) 20 unit subcut DAILY blood glucose 12/16/23 [History Last Taken Unknown] isosorbide dinitrate 10 mg tablet 20 mg PO TID bp and heart 12/16/23 [History Last Taken Unknown] levothyroxine 25 mcg tablet 25 mcg PO DAILY thyroid 12/16/23 [History Last Taken Unknown] lidocaine-silicone, adhesive topical pain 12/16/23 [History Last Taken Unknown] loperamide 2 mg capsule (Anti-Diarrheal (loperamide)) 2 mg PO Q4H PRN loose stool 12/16/23 [History Last Taken Unknown] melatonin 5 mg capsule 5 mg PO .bedtime sleep 12/16/23 [History Last Taken Unknown] nitroglycerin 0.4 mg sublingual tablet (Nitrostat) 0.4 mg sublingual Q5M chest pain 12/16/23 [History Last Taken Unknown] olanzapine 5 mg tablet 5 mg PO QHS sleep 12/16/23 [History Last Taken Unknown] ondansetron 4 mg disintegrating tablet 4 mg PO DAILY PRN nausea and vomiting 12/16/23 [History Last Taken Unknown] oxycodone-acetaminophen 5 mg-325 mg tablet 1 tab PO Q6H PRN pain 12/16/23 [History Last Taken Unknown] pramipexole dihydrochloride 1.5 mg PO BID unknown 12/16/23 [History Last Taken Unknown] promethazine 25 mg tablet 25 mg PO Q4H PRN nausea and vomiting 12/16/23 [History Last Taken Unknown] aspirin 81 mg capsule 81 mg PO DAILY #30 caps 12/26/23 [Rx Last Taken Unknown] cefepime 1 gram/50 mL in dextrose 5 % intravenous piggyback 1 g IV .as directed 12/26/23 [Rx Last Taken Unknown] Allergy/AdvReac Type Severity Reaction Status Date / Time Penicillins Allergy swelling Verified 01/21/24 12:23 in throat vancomycin Allergy Itching Verified 01/21/24 12:23 metronidazole AdvReac Nausea Verified 01/21/24 12:23 oxycodone [From OxyContin] AdvReac Shortness Verified 01/21/24 12:23 of breath Family History Mother Diabetes CVA (cerebral vascular accident) Brother CAD (coronary artery disease) CABG X 3 Cancer testicular Diabetes Brother CAD (coronary artery disease) CABG X3 Diabetes Brother CAD (coronary artery disease) Stents Diabetes Sister CAD (coronary artery disease) CABG x 3 CVA (cerebral vascular accident) Diabetes Surgical History History of bilateral carpal tunnel release History of History of coronary artery stent placement (12/31/20) History of foot surgery History of rotator cuff surgery Social History household members: none number of children: 2 current occupational status: disabled Smoking Status: Never smoker alcohol intake: never substance use type: does not use caffeine: Yes Type: carbonated beverages Number of servings: 2 ROS Review of Systems ROS Unobtainable: Denies due to encephalopathy, due to endotracheal tube, due to mental condition, due to mental status or other Constitutional Constitutional: Denies anorexia, change in weight, chills, fatigue, fever(s), malaise, night sweats, weakness or other Eyes Eyes: Denies blurry vision, change in eye color, change in vision, discharge from eye(s), double vision, erythema, eye pain, loss of vision or other ENT HEENT: Denies abnormal hearing, dysphagia, ear pain, epistaxis, headache(s), hearing loss, nasal congestion, nasal discharge, post nasal drip, sinus pressure, sore throat or other Cardiovascular Cardiovascular: Denies chest pain, claudication, dyspnea on exertion, edema, lightheadedness, orthopnea, palpitations, paroxysmal nocturnal dyspnea, rapid heart rate, syncope or other Respiratory/Chest Respiratory/Chest: Denies cough, dyspnea, excessive phlegm production, hemoptysis, productive cough, shortness of breath at rest, shortness of breath with exertion, wheezing or other Gastrointestinal Gastrointestinal: Denies abdominal pain, coffee ground emesis, constipation, diarrhea, dyspepsia, hematemesis, hematochezia, loose stools, melena, nausea, vomiting or other Genitourinary Genitourinary: Denies burning urination, difficulty urinating, dysuria, hematuria, nocturia, urinary frequency, urinary hesitancy, urinary incontinence, urinary urgency or other Musculoskeletal Musculoskeletal: Denies arthralgias, back pain, joint pain, joint stiffness, joint swelling, myalgias, neck pain or other Neurologic Neurologic: Denies abnormal gait, abnormal speech, confusion, disequilibrium, dizziness, focal weakness, headache(s), numbness, paresthesias, seizure-like activity, seizures, syncope, tingling, tremor(s) or other Psychiatric Psychiatric: Denies anxiety, depression, homicidal ideation, suicidal ideation or other Endocrine Endocrinology: Denies change in body appearance, cold intolerance, excessive sweating, heat intolerance, polydipsia, polyuria or other Hematologic/Lymphatic Hematologic/Lymphatic: Denies anemia, easy bleeding, easy bruising, lymphadenopathy or other Allergic/Immunologic Allergic/Immunologic: Denies rhinitis, hives, eczemia, asthma or other Vital Signs Vital Signs Vital Signs: 01/21/24 12:23 01/21/24 12:28 01/21/24 12:28 Temperature 96 F L 96 F L Temperature Source Temporal Temporal Pulse Rate 86 86 Respiratory Rate 25 H 25 H Blood Pressure 79/54 L 79/54 L Blood Pressure Mean 62 62 Pulse Ox 98 98 Oxygen Delivery Method Room Air Room Air Room Air Oxygen Flow Rate (L/min) 01/21/24 12:53 01/21/24 13:15 01/21/24 13:39 Temperature 97.5 F L Temperature Source Oral Pulse Rate 80 74 Respiratory Rate 18 12 Blood Pressure 105/57 L 104/60 Blood Pressure Mean 73 74 Pulse Ox 100 100 99 Oxygen Delivery Method Nasal Cannula Nasal Cannula Nasal Cannula Oxygen Flow Rate (L/min) 3 2 2 01/21/24 13:47 01/21/24 14:05 01/21/24 16:00 Temperature Temperature Source Pulse Rate 75 75 83 Respiratory Rate 16 16 18 Blood Pressure 123/61 H 120/56 L 117/63 Blood Pressure Mean 81 77 81 Pulse Ox 100 100 94 Oxygen Delivery Method Nasal Cannula Nasal Cannula Room Air Oxygen Flow Rate (L/min) 2 2 Weight Weight: 173 lb 15.115 oz Body Mass Index (BMI) 27.9 Physical Exam Narrative Comfortable in bed, responding to all questions coherently, moving all limbs well. Const alert, oriented x3 and no apparent distress Constitutional Narrative: Obese HEENT normocephalic Eyes PERRL Neck no lymphadenopathy Resp normal respiratory effort Cardio regular rate and regular rhythm GI normal to inspection, nondistended, normoactive bowel sounds Extremity normal to inspection Neuro oriented x3 and CN's II-XII intact bilaterally Sensorium / Orientation: awake and alert Psych affect normal Results Medical Records Data Attestation: I reviewed the patient's medical records Lab / Micro Data Attestation: I reviewed the patient's lab results. 01/21/24 12:50 01/21/24 12:50 Labs: Laboratory Results - last 24 hr 01/21/24 12:31: POC Glucose 192 H 01/21/24 12:50: WBC 7.4, RBC 3.70 L, Hgb 11.5 L, Hct 37.5, MCV 101.4 H, MCH 31.1, MCHC 30.7 L, RDW Std Deviation 59.0 H, RDW Coeff of Fior 15.9 H, Plt Count 401, MPV 10.2, Immature Gran % (Auto) 0.700, Neut % (Auto) 67.6, Lymph % (Auto) 20.0, Ponce % (Auto) 8.0, Eos % (Auto) 2.7, Baso % (Auto) 1.0, Absolute Neuts (auto) 5.0, Absolute Lymphs (auto) 1.47, Nucleated RBC % 0, PT 18.2 H, INR 1.5, APTT 41.7 H, Sodium 133 L, Potassium 5.5 H, Chloride 97 L, Carbon Dioxide 28.0, Anion Gap 8, BUN 43 H, Creatinine 6.21 H, Estim Creat Clear Calc 10.47, Est GFR (MDRD) Af Amer 9 L, Est GFR (MDRD) Non-Af 7 L, BUN/Creatinine Ratio 6.9 L, G lucose 197 H, Lactic Acid 1.7, Calcium 9.7, Total Bilirubin 0.40, AST 35, ALT 9 L, Alkaline Phosphatase 264 H, Total Protein 9.8 H, Albumin 4.0, Globulin 5.8 H, Albumin/Globulin Ratio 0.7 L ABG Data ABG results: ABG 01/21/24 12:53 Specimen Type SHAUN Sample Site Not entered O2 % 3.0 VBG pH 7.39 VBG pO2 35 VBG HCO3 27 H VBG Total CO2 28 VBG O2 Sat (Calc) 66 VBG Base Excess 2 POC Mix VBG pCO2 Pt Tmp 44.3 O2 Delivery Device Cannula Attestation: I personally reviewed and interpreted this ABG as follows: Imaging Radiology Impression Chest X-Ray 01/21/24 12:28 IMPRESSION: Right lower lung scarring or atelectasis. Electronically Signed: Shayne Rojas MD at 13:26 EDT , Assessment & Plan Assessment/Plan (1) Mental status, decreased: PLAN: Plan 58-year-old female presents to the ED with acute changes in mental status with decreased responsiveness. This presentation is in the setting of overdose with antihypertensive medications and admission blood pressure was 70/54 mmHg. With fluid therapy, her blood pressure has improved and her sensorium is back to her baseline. She is being admitted under observation given her acute presentation for further management. 1. Acute altered mental status: Likely because of antihypertensive use, she has labile hypertension due to underlying ESRD, suspect diabetic autonomic neuropathy. -Hold off all antihypertensives for now -Complete LR infusion as started in the ED -Encourage p.o. hydration, no more IV fluids after this given her ESRD status -Monitor blood pressures 2. Type 2 diabetes on insulin therapy: Continue home medications -HbA1c -Insulin per sliding scale if not controlled with her home insulin regimen 3. Labile hypertension: Suspect there is underlying autonomic neuropathy due to her diabetes and also ESRD related hypotension. -Continue to hold antihypertensive medications 4. Diabetic foot: No treatment inpatient necessity 5. End-stage renal disease: On outpatient hemodialysis, no requirement for inpatient hemodialysis for now 6. DVT prophylaxis: Start on low molecular weight heparin given the ESRD. 7. Diffuse back pain: Continue Flexeril as needed as prescribed outpatient. Hold oxycodone for now. 8. Acute on chronic anemia related to anemia of chronic disease: Hold iron supplementation during her hospitalization for now. 9. Hypothyroidism: Check TSH levels tomorrow, continue levothyroxine 25 mcg daily 10. Mood disorder: Continue olanzapine 5 mg at bedtime and paroxetine 20 mg daily 11. GERD: Continue pantoprazole 40 mg daily 12. Restless leg syndrome: Continue pramipexole 1.5 mg twice daily
[2024-01-21] MEDS: Pantoprazole Sodium 40 MG Tablet PO (18:10)
[2024-01-21] MEDS: MELATONIN 10 MG TABLET 5 MG PO (22:22)
[2024-01-21] MEDS: Pramipexole Di-HCl 0.5 MG Tablet 1.5 MG PO (22:22)
[2024-01-21] MEDS: OLANZapine 5 MG/TAB TAB.RAPDIS PO (22:22)
[2024-01-21] MEDS: Insulin Glargine-YFGN 100 UNIT/ML Pen SC (22:22)
[2024-01-21] MEDS: Heparin Injection (Vial) 5,000 UNIT/ML VIAL 5000 UNIT SC (22:23)
[2024-01-21] MEDS: 0.9% Saline Lock 10 ML Syringe IV (22:26)
[2024-01-21 23:09] LABS: Bedside Glucose 215 mg/dL (74-106)
[2024-01-22 04:32] VITALS: BP 125/61; PULSE 75; RESP 17; TEMP 36.3; O2SAT 98
[2024-01-22] MEDS: Acetaminophen 325 MG Tablet PO (06:11)
[2024-01-22] MEDS: Levothyroxine 25 MCG TABLET PO (06:13)
[2024-01-22] MEDS: cycloBENZAPRine HCl 5 MG TABLET PO (06:53)
[2024-01-22 07:01] LABS: Bedside Glucose 165 mg/dL (74-106)
[2024-01-22 07:09] LABS: Hemoglobin A1c 5.3 % (3.8-5.6)
[2024-01-22 07:33] LABS: Thyroid Stim Hormone (TSH) 4.51 uIU/mL (0.358-3.74)
[2024-01-22 07:59] VITALS: BP 136/88; PULSE 81; RESP 16; TEMP 36.6; O2SAT 96
[2024-01-22] MEDS: Insulin Lispro 100 UNIT/ML INSULN.PEN 6 UNIT SC (08:09)
[2024-01-22] MEDS: Aspirin 81 MG TAB.CHEW PO (08:11)
[2024-01-22] MEDS: Folic Acid 1 MG Tablet PO (08:11)
[2024-01-22] MEDS: Pantoprazole Sodium 40 MG Tablet PO (08:11)
[2024-01-22] MEDS: Pramipexole Di-HCl 0.5 MG Tablet 1.5 MG PO (08:12)
[2024-01-22] MEDS: Paroxetine 20 MG Tablet PO (08:12)
[2024-01-22] MEDS: Atorvastatin Calcium 20 MG Tablet PO (08:13)
[2024-01-22] MEDS: buPROPion (XL) 150 MG TABLET.XL PO (08:13)
--- NOTE | 2024-01-22 10:33 | PCM.DC ---
Discharge Instructions Diet Discharge Diet: - (Resume previous home diet) Activity Discharge Activity: Return to Normal Activity Weight Bearing Status: Full weight bearing Follow Up Care Test Results: Test results from this visit will be discussed in further detail at your follow-up appointment, if applicable. Discharge Plan Admission Admit Date/Time: 01/21/24 15:58 Primary Reason for Your Visit: Hypotension Attending Provider: Raúl Perez Primary Care Provider: Raúl Eric Consulting Providers: Billie Thompson Discharge Orders/Prescriptions Prescriptions: Continued paroxetine HCl 20 mg tablet 20 mg PO DAILY Patient Comments: TAKE 1 TABLET BY MOUTH EVERY DAY IN THE EVENING bupropion HCl 150 mg tablet extended release 24 hr 150 mg PO DAILY Patient Comments: TAKE 1 TABLET BY MOUTH EVERY DAY sennosides-docusate sodium [Stool Softener-Stimulant Laxat] 8.6-50 mg Tablet 2 tab PO BID PRN PRN (Reason: Constipation) Qty: 0 0RF ascorbic acid (vitamin C) [Vitamin C] 500 mg Tablet 500 mg PO BID clopidogrel 75 mg tablet 75 mg PO DAILY pantoprazole 40 mg tablet,delayed release (DR/EC) 40 mg PO BIDCM ferrous sulfate 325 mg (65 mg iron) tablet 325 mg PO .three times a week Patient Comments: takes three times a week, on Tuesday, and Tuesday insulin lispro [Humalog KwikPen Insulin] 100 unit/mL Insulin Pen See Protocol subcut TIDAC Qty: 0 0RF Protocol: 1. Sliding Scale Insulin Low Dosing Condition: 150-224 mg/dl = 1 unit Condition: 225-299 mg/dl = 2 units Condition: 300-374 mg/dl = 3 units Condition: 375-499 mg/dl = 4 units Condition: Greater than 449 call physician Protocol Text: - Use for Total Daily Dose of Insulin 15-27 units - Thin, elderly, renal patients LOW DOSING ALGORITHM insulin glargine-yfgn 100 unit/mL (3 mL) insulin pen 5 unit subcut QHS Qty: 15 0RF Rx Instructions: Hold if glucose less than 130 mg/dl gabapentin 100 mg capsule 100 mg PO .COMPLEX PRN (Reason: pain) Rx Instructions: 100 mg orally 3 times a week Tuesday, Tuesday and Tuesday cyclobenzaprine 5 mg tablet 5 mg PO TID PRN (Reason: muscle spasm) Qty: 21 0RF atorvastatin 20 mg tablet 20 mg PO DAILY Patient Comments: TAKE 1 TABLET BY MOUTH EVERY DAY calcium acetate(phosphat bind) 667 mg capsule 676 mg PO TID Patient Comments: TAKE 1 CAPSULE BY MOUTH THREE TIMES A DAY WITH FOOD folic acid 800 mcg tablet 0.8 mg PO DAILY Patient Comments: TAKE 1 TABLET BY MOUTH EVERY DAY levothyroxine 25 mcg tablet 25 mcg PO DAILY Patient Comments: TAKE 1 TABLET BY MOUTH EVERY DAY BEFORE BREAKFAST insulin aspart U-100 100 unit/mL (3 mL) insulin pen SUBCUT Patient Comments: PLEASE SEE ATTACHED FOR DETAILED DIRECTIONS olanzapine 5 mg tablet 5 mg PO QHS Patient Comments: TAKE 1 TABLET BY MOUTH EVERYDAY AT BEDTIME oxycodone-acetaminophen 5-325 mg tablet 1 tab PO Q6H PRN (Reason: pain) Patient Comments: TAKE 1 TABLET BY MOUTH EVERY 6 HOURS NEEDED amlodipine 5 mg tablet 5 mg PO DAILY carvedilol 12.5 mg tablet 12.5 mg PO BID Rx Instructions: must administer with a meal/food hydralazine 25 mg tablet 25 mg PO TID insulin glargine [Lantus Solostar U-100 Insulin] 100 unit/mL (3 mL) insulin pen 20 unit subcut DAILY lidocaine-silicone, adhesive topical Patient Comments: 1 patch daily melatonin 5 mg capsule 5 mg PO .bedtime insulin aspart U-100 [Novolog FlexPen U-100 Insulin] 6 unit subcut TID Patient Comments: give with meals ondansetron 4 mg tablet,disintegrating 4 mg PO DAILY PRN (Reason: nausea and vomiting) pramipexole dihydrochloride 1.5 mg PO BID isosorbide dinitrate 10 mg Tablet 20 mg PO TID acetaminophen 325 mg capsule 325 mg PO Q4H PRN (Reason: fever or pain) antacid extra assorted fruit tablets 750 mg PO .every 4 hours PRN (Reason: tums) calcitriol 0.5 mcg capsule 0.5 mcg PO .COMPLEX Rx Instructions: 0.5 mcg orally three times a week; cloNIDine See Rx Instructions .ROUTE .COMPLEX Rx Instructions: 0.1mg every 4 hours as needed diphenhydramine 25 mg IV Rx Instructions: every 30 minutes as needed. loperamide [Anti-Diarrheal (loperamide)] 2 mg capsule 2 mg PO Q4H PRN (Reason: loose stool) Rx Instructions: administer after each loose stool until symptoms controlled; do not exceed 8 mg per 24 hrs Mircera See Rx Instructions .ROUTE .COMPLEX Rx Instructions: intravenous every 2 weeks nitroglycerin [Nitrostat] 0.4 mg tablet, sublingual 0.4 mg sublingual Q5M Rx Instructions: do not exceed 3 doses per episode promethazine 25 mg tablet 25 mg PO Q4H PRN (Reason: nausea and vomiting) Venofer Rx Instructions: 50 mg one time a week. cefepime in dextrose 5 % 1 gram/50 mL piggyback 1 g IV .as directed Rx Instructions: Dose with dialysis sessions. 1gm on Tue, 2gm on , 1gm on , 2gm on Tuesday. Stop date 01/30/24. Dx: MSSA endocarditis. Weekly bmp and cbc. Fax to [phone]. aspirin 81 mg capsule 81 mg PO DAILY Qty: 30 1RF Referrals / Follow Up: Raúl Eric MD [Primary Care Provider] - Within 1 Month Disposition Disposition (needs filled in before D/C Order can be placed): Home, Self Care
--- NOTE | 2024-01-22 10:36 | PCM.DC.SUM ---
Providers Date of Admission: 01/21/24 Date of Discharge: 01/22/24 Primary Care Physician: Dr. Raúl Eric MD Reason For Visit: ACUTE ALTERED SENSORIUM Diagnosis Discharge Diagnosis (1) Mental status, decreased: Status: Acute Code(s): R41.82 - Altered mental status, unspecified Plan 1. Mental status change secondary to hypotension from blood pressure medication and volume depletion #2 hypotension secondary to hypertension medication and volume depletion #3 type 2 diabetes #4 end-stage renal disease on dialysis Medications at Discharge Home Medications paroxetine HCl 20 mg tablet 20 mg PO DAILY DEPRESSION 07/07/21 bupropion HCl 150 mg 24 hr tablet, extended release 150 mg PO DAILY mood 02/04/22 sennosides 8.6 mg-docusate sodium 50 mg tablet (Stool Softener-Stimulant Laxative) 2 tab PO BID PRN PRN Constipation #0 tabs 04/24/22 ascorbic acid (vitamin C) 500 mg tablet (Vitamin C) 500 mg PO BID supplement 05/05/22 clopidogrel 75 mg tablet 75 mg PO DAILY prevent stroke 07/19/22 ferrous sulfate 325 mg (65 mg iron) tablet 325 mg PO .three times a week anemia 07/19/22 pantoprazole 40 mg tablet,delayed release 40 mg PO BIDCM GERD 07/19/22 insulin glargine-yfgn 100 unit/mL (3 mL) subcutaneous pen 5 unit (0.05 mL) subcut QHS blood sugar #15 mL 07/21/22 insulin lispro 100 unit/mL subcutaneous pen (Humalog KwikPen (U-100) Insulin) See Protocol subcut TIDAC #0 mL 07/21/22 cyclobenzaprine 5 mg tablet 5 mg PO TID PRN muscle spasm #21 tabs 11/26/23 gabapentin 100 mg capsule 100 mg PO .COMPLEX PRN pain 11/26/23 Mircera See Rx Instructions .Route .COMPLEX dialysis 12/16/23 Venofer iron 12/16/23 acetaminophen 325 mg capsule 325 mg PO Q4H PRN fever or pain 12/16/23 amlodipine 5 mg tablet 5 mg PO DAILY bp 12/16/23 antacid extra assorted fruit tablets 750 mg PO .every 4 hours PRN tums 12/16/23 atorvastatin 20 mg tablet 20 mg PO DAILY cholestrol 12/16/23 calcitriol 0.5 mcg capsule 0.5 mcg PO .COMPLEX on dialysis 12/16/23 calcium acetate(phosphat bind) 667 mg capsule 676 mg PO TID is on dialysis 12/16/23 carvedilol 12.5 mg tablet 12.5 mg PO BID heart and bp 12/16/23 cloNIDine See Rx Instructions .Route .COMPLEX dialysis 12/16/23 diphenhydramine 25 mg IV itching 12/16/23 folic acid 800 mcg tablet 0.8 mg PO DAILY supplement 12/16/23 hydralazine 25 mg tablet 25 mg PO TID bp 12/16/23 insulin aspart U-100 6 unit subcut TID blood glucose 12/16/23 insulin aspart U-100 100 unit/mL (3 mL) subcutaneous pen subcut 12/16/23 insulin glargine 100 unit/mL (3 mL) subcutaneous pen (Lantus Solostar U-100 Insulin) 20 unit subcut DAILY blood glucose 12/16/23 isosorbide dinitrate 10 mg tablet 20 mg PO TID bp and heart 12/16/23 levothyroxine 25 mcg tablet 25 mcg PO DAILY thyroid 12/16/23 lidocaine-silicone, adhesive topical pain 12/16/23 loperamide 2 mg capsule (Anti-Diarrheal (loperamide)) 2 mg PO Q4H PRN loose stool 12/16/23 melatonin 5 mg capsule 5 mg PO .bedtime sleep 12/16/23 nitroglycerin 0.4 mg sublingual tablet (Nitrostat) 0.4 mg sublingual Q5M chest pain 12/16/23 olanzapine 5 mg tablet 5 mg PO QHS sleep 12/16/23 ondansetron 4 mg disintegrating tablet 4 mg PO DAILY PRN nausea and vomiting 12/16/23 oxycodone-acetaminophen 5 mg-325 mg tablet 1 tab PO Q6H PRN pain 12/16/23 pramipexole dihydrochloride 1.5 mg PO BID unknown 12/16/23 promethazine 25 mg tablet 25 mg PO Q4H PRN nausea and vomiting 12/16/23 aspirin 81 mg capsule 81 mg PO DAILY #30 caps 12/26/23 cefepime 1 gram/50 mL in dextrose 5 % intravenous piggyback 1 g IV .as directed 12/26/23 Hospital Course Operations None Procedures None Summary of Care Provided Minutes Spent on Discharge: 30 Hospital Course: This 58-year-old white female was seen in the emergency room at [facility] after being brought in with decreased level of consciousness from home. Patient has multiple medical problems including end-stage renal disease with dialysis, essential hypertension and type 2 diabetes. Patient was noted to be hypotensive on arrival to the emergency room, she was given IV fluids and labs were obtained, her white blood cell count was normal, potassium was 5.5, creatinine was 6.21 and BUN was 43, glucose was 192. EKG showed normal sinus rhythm without ST-T wave changes. Patient's blood pressure corrected with fluid administration in the emergency room, patient was placed in observation status on MedSurg 3 and she had no additional episodes of hypotension. On 01/22/2024, patient was seen and examined: On examination she appeared in good health and spirits, she does not appear to be in any distress. Vital signs as documented. Skin warm and dry and without overt rashes. Neck without JVD, thyroid appears normal, trachea is midline, neck is supple. Lungs clear, normal air movement was noted. Heart exam notable for regular rhythm, normal sounds and absence of murmurs, rubs or gallops. Abdomen unremarkable and without evidence of organomegaly, masses, or abdominal aortic enlargement, bowel sounds are present in all 4 quadrants, no abdominal tenderness was noted. Extremities nonedematous, no cyanosis was noted, no clubbing was noted. Neuro: Cranial nerves II through XII are grossly intact, no focal motor deficits were noted, sensation to light touch and pinprick is intact, motor exam 5/5 throughout. Psych: Patient is alert and oriented x3, she does not appear anxious or depressed, she does not appear agitated. Patient appears stable for discharge home on 01/22/2024. Weight / BMI Weight Weight: 75.614 kg Body Mass Index (BMI) 26.8 ABG / Lab / Microbiology Data 01/21/24 12:50 01/21/24 12:50 Laboratory: Laboratory Results - last 24 hr 01/21/24 12:31: POC Glucose 192 H 01/21/24 12:50: WBC 7.4, RBC 3.70 L, Hgb 11.5 L, Hct 37.5, MCV 101.4 H, MCH 31.1, MCHC 30.7 L, RDW Std Deviation 59.0 H, RDW Coeff of Fior 15.9 H, Plt Count 401, MPV 10.2, Immature Gran % (Auto) 0.700, Neut % (Auto) 67.6, Lymph % (Auto) 20.0, Kimble % (Auto) 8.0, Eos % (Auto) 2.7, Baso % (Auto) 1.0, Absolute Neuts (auto) 5.0, Absolute Lymphs (auto) 1.47, Nucleated RBC % 0, PT 18.2 H, INR 1.5, APTT 41.7 H, Sodium 133 L, Potassium 5.5 H, Chloride 97 L, Carbon Dioxide 28.0, Anion Gap 8, BUN 43 H, Creatinine 6.21 H, Estim Creat Clear Calc 10.47, Est GFR (MDRD) Af Amer 9 L, Est GFR (MDRD) Non-Af 7 L, BUN/Creatinine Ratio 6.9 L, Glucose 197 H, Lactic Acid 1.7, Calcium 9.7, Total Bilirubin 0.40, AST 35, ALT 9 L, Alkaline Phosphatase 264 H, Total Protein 9.8 H, Albumin 4.0, Globulin 5.8 H, Albumin/Globulin Ratio 0.7 L 01/21/24 22:19: POC Glucose 215 H 01/22/24 06:33: Hemoglobin A1c 5.3, TSH 4.51 H 01/22/24 06:40: POC Glucose 165 H ABG: ABG 01/21/24 12:53 Specimen Type SHAUN Sample Site Not entered O2 % 3.0 VBG pH 7.39 VBG pO2 35 VBG HCO3 27 H VBG Total CO2 28 VBG O2 Sat (Calc) 66 VBG Base Excess 2 POC Mix VBG pCO2 Pt Tmp 44.3 O2 Delivery Device Cannula Radiography Diagnostic Testing: Radiology Impression Chest X-Ray 01/21/24 12:28 IMPRESSION: Right lower lung scarring or atelectasis. Electronically Signed: Shayne Rojas MD at 13:26 EDT , D/C Instructions Discharge Diet: - (Resume previous home diet) Weight Bearing Status: Full weight bearing Meaningful Use Info Meaningful Use Diagnoses (Choose all that apply): None applicable Discharge Plan Admission Admit Date/Time: 01/21/24 15:58 Primary Reason for Your Visit: Hypotension Attending Provider: Raúl Perez Primary Care Provider: Raúl Eric Consulting Providers: Billie Thompson Discharge Orders/Prescriptions Prescriptions: Continued paroxetine HCl 20 mg tablet 20 mg PO DAILY Patient Comments: TAKE 1 TABLET BY MOUTH EVERY DAY IN THE EVENING bupropion HCl 150 mg tablet extended release 24 hr 150 mg PO DAILY Patient Comments: TAKE 1 TABLET BY MOUTH EVERY DAY sennosides-docusate sodium [Stool Softener-Stimulant Laxat] 8.6-50 mg Tablet 2 tab PO BID PRN PRN (Reason: Constipation) Qty: 0 0RF ascorbic acid (vitamin C) [Vitamin C] 500 mg Tablet 500 mg PO BID clopidogrel 75 mg tablet 75 mg PO DAILY pantoprazole 40 mg tablet,delayed release (DR/EC) 40 mg PO BIDCM ferrous sulfate 325 mg (65 mg iron) tablet 325 mg PO .three times a week Patient Comments: takes three times a week, on Tuesday, and Tuesday insulin lispro [Humalog KwikPen Insulin] 100 unit/mL Insulin Pen See Protocol subcut TIDAC Qty: 0 0RF Protocol: 1. Sliding Scale Insulin Low Dosing Condition: 150-224 mg/dl = 1 unit Condition: 225-299 mg/dl = 2 units Condition: 300-374 mg/dl = 3 units Condition: 375-499 mg/dl = 4 units Condition: Greater than 449 call physician Protocol Text: - Use for Total Daily Dose of Insulin 15-27 units - Thin, elderly, renal patients LOW DOSING ALGORITHM insulin glargine-yfgn 100 unit/mL (3 mL) insulin pen 5 unit subcut QHS Qty: 15 0RF Rx Instructions: Hold if glucose less than 130 mg/dl gabapentin 100 mg capsule 100 mg PO .COMPLEX PRN (Reason: pain) Rx Instructions: 100 mg orally 3 times a week Tuesday, Tuesday and Tuesday cyclobenzaprine 5 mg tablet 5 mg PO TID PRN (Reason: muscle spasm) Qty: 21 0RF atorvastatin 20 mg tablet 20 mg PO DAILY Patient Comments: TAKE 1 TABLET BY MOUTH EVERY DAY calcium acetate(phosphat bind) 667 mg capsule 676 mg PO TID Patient Comments: TAKE 1 CAPSULE BY MOUTH THREE TIMES A DAY WITH FOOD folic acid 800 mcg tablet 0.8 mg PO DAILY Patient Comments: TAKE 1 TABLET BY MOUTH EVERY DAY levothyroxine 25 mcg tablet 25 mcg PO DAILY Patient Comments: TAKE 1 TABLET BY MOUTH EVERY DAY BEFORE BREAKFAST insulin aspart U-100 100 unit/mL (3 mL) insulin pen SUBCUT Patient Comments: PLEASE SEE ATTACHED FOR DETAILED DIRECTIONS olanzapine 5 mg tablet 5 mg PO QHS Patient Comments: TAKE 1 TABLET BY MOUTH EVERYDAY AT BEDTIME oxycodone-acetaminophen 5-325 mg tablet 1 tab PO Q6H PRN (Reason: pain) Patient Comments: TAKE 1 TABLET BY MOUTH EVERY 6 HOURS NEEDED amlodipine 5 mg tablet 5 mg PO DAILY carvedilol 12.5 mg tablet 12.5 mg PO BID Rx Instructions: must administer with a meal/food hydralazine 25 mg tablet 25 mg PO TID insulin glargine [Lantus Solostar U-100 Insulin] 100 unit/mL (3 mL) insulin pen 20 unit subcut DAILY lidocaine-silicone, adhesive topical Patient Comments: 1 patch daily melatonin 5 mg capsule 5 mg PO .bedtime insulin aspart U-100 [Novolog FlexPen U-100 Insulin] 6 unit subcut TID Patient Comments: give with meals ondansetron 4 mg tablet,disintegrating 4 mg PO DAILY PRN (Reason: nausea and vomiting) pramipexole dihydrochloride 1.5 mg PO BID isosorbide dinitrate 10 mg Tablet 20 mg PO TID acetaminophen 325 mg capsule 325 mg PO Q4H PRN (Reason: fever or pain) antacid extra assorted fruit tablets 750 mg PO .every 4 hours PRN (Reason: tums) calcitriol 0.5 mcg capsule 0.5 mcg PO .COMPLEX Rx Instructions: 0.5 mcg orally three times a week; cloNIDine See Rx Instructions .ROUTE .COMPLEX Rx Instructions: 0.1mg every 4 hours as needed diphenhydramine 25 mg IV Rx Instructions: every 30 minutes as needed. loperamide [Anti-Diarrheal (loperamide)] 2 mg capsule 2 mg PO Q4H PRN (Reason: loose stool) Rx Instructions: administer after each loose stool until symptoms controlled; do not exceed 8 mg per 24 hrs Mircera See Rx Instructions .ROUTE .COMPLEX Rx Instructions: intravenous every 2 weeks nitroglycerin [Nitrostat] 0.4 mg tablet, sublingual 0.4 mg sublingual Q5M Rx Instructions: do not exceed 3 doses per episode promethazine 25 mg tablet 25 mg PO Q4H PRN (Reason: nausea and vomiting) Venofer Rx Instructions: 50 mg one time a week. cefepime in dextrose 5 % 1 gram/50 mL piggyback 1 g IV .as directed Rx Instructions: Dose with dialysis sessions. 1gm on Tue, 2gm on , 1gm on , 2gm on Tuesday. Stop date 01/30/24. Dx: MSSA endocarditis. Weekly bmp and cbc. Fax to [phone]. aspirin 81 mg capsule 81 mg PO DAILY Qty: 30 1RF Referrals / Follow Up: Raúl Eric MD [Primary Care Provider] - Within 1 Month Disposition Disposition (needs filled in before D/C Order can be placed): Home, Self Care Charges/Coding Visit Charges Inpatient E&M: 71213 Disch Hosp
[2024-01-22] MEDS: Insulin Glargine-YFGN 100 UNIT/ML Pen 20 UNIT SC (10:52)
== END 2024-01-22 11:33 | disposition home or self-care (01) ==
LOC: ED 15:52 → MS3 17:01
PROVIDERS: Admitting Provider Internal Medicine; Emergency Provider Emergency Medicine; PCP Family Medicine; Visit Provider Internal Medicine
DX: I95.2 Hypotension due to drugs (principal); N18.6 End stage renal disease; I12.0 Hypertensive chronic kidney disease with stage 5 chronic kidney disease or end stage renal disease; E11.22 Type 2 diabetes mellitus with diabetic chronic kidney disease; Z79.4 Long term (current) use of insulin; E11.65 Type 2 diabetes mellitus with hyperglycemia; E11.42 Type 2 diabetes mellitus with diabetic polyneuropathy; Z99.2 Dependence on renal dialysis; E78.5 Hyperlipidemia, unspecified; I25.5 Ischemic cardiomyopathy; I25.10 Atherosclerotic heart disease of native coronary artery without angina pectoris; G89.29 Other chronic pain; K21.9 Gastro-esophageal reflux disease without esophagitis; R41.82 Altered mental status, unspecified; Z79.899 Other long term (current) drug therapy; Z79.82 Long term (current) use of aspirin; Z79.890 Hormone replacement therapy; E03.9 Hypothyroidism, unspecified; D63.8 Anemia in other chronic diseases classified elsewhere; E86.9 Volume depletion, unspecified; T50.905A Adverse effect of unspecified drugs, medicaments and biological substances, initial encounter
CPT/HCPCS: 36415; 51702; 71045; 80053; 82803; 82962; 83036; 83605; 84443; 85025; 85610; 85730; 87040; 93005; 96360; 96361; 96372; 97802; 99221; 99285; J7040; A4216; G0378

== ENCOUNTER 2024-01-25 14:01 | Emergency (ER) | payer MEDICARE, MEDICAID, SELFPAY ==
[2018-09-21 13:23] VITALS: BMI 29.3
[2024-01-25 14:02] VITALS: BP 145/79; PULSE 102; RESP 19; TEMP 36.8; O2SAT 95; BMI 27.5
--- NOTE | 2024-01-25 14:31 | EDS_ITS ---
HPI History of Present Illness Chief Complaint: Alt LOC Informant: patient Onset/Context/Timing Onset: Today Context: Sudden Onset Current Severity: Gone Maximum Severity: Moderate Narrative Narrative: 58-year-old female history of end-stage renal disease dialysis, anemia, diabetes, TIA and NV. Today she was in dialysis. And had a brief episode of mental status change which is now since resolved. She is back to her baseline. States she feels okay. States she did have some diarrhea yesterday. Denies vomiting. Denies fever. Denies headache or chest pain. No abdominal pain. Prior similar episodes. Currently denies any complaints. Prior similar symptoms: Yes Recent Illness/Hospitalization: Yes [facility] Medical History Acquired varus deformity of left foot Acquired varus deformity of right foot Acute lumbar radiculopathy Acute on chronic anemia Adult failure to thrive Amputation foot, bilat Anemia due to chronic illness Anemia in chronic illness Anxiety and depression Atherosclerosis of [place] coronary artery of [place] heart without angina pectoris Back pain, chronic Bilateral edema of lower extremity Carotid artery stenosis Cellulitis Cellulitis of both lower extremities Charcot's joint of right foot Charcot's joint, left ankle and foot Charcot's joint, right ankle and foot Chronic anemia Chronic foot pain Chronic kidney disease, stage 3b Chronic kidney disease, stage 4 (severe) Chronic renal disease, stage 4, severely decreased glomerular filtration rate (GFR) between 15-29 mL/min/1.73 square meter Chronic renal insufficiency Chronic ulcer of left foot with fat layer exposed 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 Chronic ulcer of right foot with fat layer exposed Chronic ulcer of right foot with necrosis of bone Chronic ulcer of right foot with necrosis of muscle Chronic ulcer of right leg with fat layer exposed COVID-19 (08/28/21) CRF (chronic renal failure) Debility Delayed wound healing Diabetes Diabetes mellitus with diabetic polyneuropathy Diabetic foot ulcer associated with type 2 diabetes mellitus Diabetic foot ulcers Diabetic infection of left foot Diabetic polyneuropathy Diabetic ulcer of right ankle Elevated troponin End stage renal disease ESRD on hemodialysis Essential (primary) hypertension Essential hypertension Foot osteomyelitis, left GERD (gastroesophageal reflux disease) Hemoglobin A1c greater than 9.0% HLD (hyperlipidemia) Hyperparathyroidism, secondary renal Hypertension Iron deficiency anemia Ischemic cardiomyopathy MSSA bacteremia Myocardial infarct Non-compliance Non-pressure chronic ulcer of other part of left foot with fat layer exposed Non-pressure chronic 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 layer exposed Non-smoker Normocytic anemia NSTEMI (non-ST elevated myocardial infarction) (09/20/18) Obesity (BMI 30.0-34.9) Osteomyelitis Osteomyelitis of left foot Osteomyelitis of metatarsal RLS (restless legs syndrome) Stage 4 chronic kidney disease TIA (transient ischemic attack) Type 2 diabetes mellitus 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 Ulcer of left foot with fat layer exposed Ulcer of left foot with muscle involvement without evidence of necrosis Ulcer of left foot with necrosis of muscle Ulcer of right lower extremity with fat layer exposed Home Medications paroxetine HCl 20 mg tablet 20 mg PO DAILY DEPRESSION 07/07/21 [History Last Taken 04/07/22] bupropion HCl 150 mg 24 hr tablet, extended release 150 mg PO DAILY mood 02/04/22 [History Last Taken 04/07/22] sennosides 8.6 mg-docusate sodium 50 mg tablet (Stool Softener-Stimulant Laxative) 2 tab PO BID PRN PRN Constipation #0 tabs 04/24/22 [Rx Last Taken Unknown] ascorbic acid (vitamin C) 500 mg tablet (Vitamin C) 500 mg PO BID supplement 05/05/22 [History Last Taken Unknown] clopidogrel 75 mg tablet 75 mg PO DAILY prevent stroke 07/19/22 [History Last Taken Unknown] ferrous sulfate 325 mg (65 mg iron) tablet 325 mg PO .three times a week anemia 07/19/22 [History Last Taken Unknown] pantoprazole 40 mg tablet,delayed release 40 mg PO BIDCM GERD 07/19/22 [History Last Taken Unknown] insulin glargine-yfgn 100 unit/mL (3 mL) subcutaneous pen 5 unit (0.05 mL) subcut QHS blood sugar #15 mL 07/21/22 [Rx Last Taken Unknown] insulin lispro 100 unit/mL subcutaneous pen (Humalog KwikPen (U-100) Insulin) See Protocol subcut TIDAC #0 mL 07/21/22 [Rx Last Taken Unknown] cyclobenzaprine 5 mg tablet 5 mg PO TID PRN muscle spasm #21 tabs 11/26/23 [Rx Last Taken Unknown] gabapentin 100 mg capsule 100 mg PO .COMPLEX PRN pain 11/26/23 [History Last Taken Unknown] Mircera See Rx Instructions .Route .COMPLEX dialysis 12/16/23 [History Last Taken Unknown] Venofer iron 12/16/23 [History Last Taken Unknown] acetaminophen 325 mg capsule 325 mg PO Q4H PRN fever or pain 12/16/23 [History Last Taken Unknown] amlodipine 5 mg tablet 5 mg PO DAILY bp 12/16/23 [History Last Taken Unknown] antacid extra assorted fruit tablets 750 mg PO .every 4 hours PRN tums 12/16/23 [History Last Taken Unknown] atorvastatin 20 mg tablet 20 mg PO DAILY cholestrol 12/16/23 [History Last Taken Unknown] calcitriol 0.5 mcg capsule 0.5 mcg PO .COMPLEX on dialysis 12/16/23 [History Last Taken Unknown] calcium acetate(phosphat bind) 667 mg capsule 676 mg PO TID is on dialysis 12/16/23 [History Last Taken Unknown] carvedilol 12.5 mg tablet 12.5 mg PO BID heart and bp 12/16/23 [History Last Taken Unknown] cloNIDine See Rx Instructions .Route .COMPLEX dialysis 12/16/23 [History Last Taken Unknown] diphenhydramine 25 mg IV itching 12/16/23 [History Last Taken Unknown] folic acid 800 mcg tablet 0.8 mg PO DAILY supplement 12/16/23 [History Last Taken Unknown] hydralazine 25 mg tablet 25 mg PO TID bp 12/16/23 [History Last Taken Unknown] insulin aspart U-100 6 unit subcut TID blood glucose 12/16/23 [History Last Taken Unknown] insulin aspart U-100 100 unit/mL (3 mL) subcutaneous pen subcut 12/16/23 [History Last Taken Unknown] insulin glargine 100 unit/mL (3 mL) subcutaneous pen (Lantus Solostar U-100 Insulin) 20 unit subcut DAILY blood glucose 12/16/23 [History Last Taken Unknown] isosorbide dinitrate 10 mg tablet 20 mg PO TID bp and heart 12/16/23 [History Last Taken Unknown] levothyroxine 25 mcg tablet 25 mcg PO DAILY thyroid 12/16/23 [History Last Taken Unknown] lidocaine-silicone, adhesive topical pain 12/16/23 [History Last Taken Unknown] loperamide 2 mg capsule (Anti-Diarrheal (loperamide)) 2 mg PO Q4H PRN loose stool 12/16/23 [History Last Taken Unknown] melatonin 5 mg capsule 5 mg PO .bedtime sleep 12/16/23 [History Last Taken Unknown] nitroglycerin 0.4 mg sublingual tablet (Nitrostat) 0.4 mg sublingual Q5M chest pain 12/16/23 [History Last Taken Unknown] olanzapine 5 mg tablet 5 mg PO QHS sleep 12/16/23 [History Last Taken Unknown] ondansetron 4 mg disintegrating tablet 4 mg PO DAILY PRN nausea and vomiting 0 12/16/23 [History Last Taken Unknown] oxycodone-acetaminophen 5 mg-325 mg tablet 1 tab PO Q6H PRN pain 12/16/23 [History Last Taken Unknown] pramipexole dihydrochloride 1.5 mg PO BID unknown 12/16/23 [History Last Taken Unknown] promethazine 25 mg tablet 25 mg PO Q4H PRN nausea and vomiting 12/16/23 [History Last Taken Unknown] aspirin 81 mg capsule 81 mg PO DAILY #30 caps 12/26/23 [Rx Last Taken Unknown] cefepime 1 gram/50 mL in dextrose 5 % intravenous piggyback 1 g IV .as directed 12/26/23 [Rx Last Taken Unknown] Allergy/AdvReac Type Severity Reaction Status Date / Time Penicillins Allergy swelling Verified 01/25/24 14:07 in throat vancomycin Allergy Itching Verified 01/25/24 14:07 metronidazole AdvReac Nausea Verified 01/25/24 14:07 oxycodone [From OxyContin] AdvReac Shortness Verified 01/25/24 14:07 of breath Family History Mother Diabetes CVA (cerebral vascular accident) Brother CAD (coronary artery disease) CABG X 3 Cancer testicular Diabetes Brother CAD (coronary artery disease) CABG X3 Diabetes Brother CAD (coronary artery disease) Stents Diabetes Sister CAD (coronary artery disease) CABG x 3 CVA (cerebral vascular accident) Diabetes Surgical History History of bilateral carpal tunnel release History of History of coronary artery stent placement (12/31/20) History of foot surgery History of rotator cuff surgery Social History household members: none number of children: 2 current occupational status: disabled Smoking Status: Never smoker alcohol intake: never substance use type: does not use caffeine: Yes Type: carbonated beverages Number of servings: 2 ROS ROS ED ROS Narrative Diarrhea. Review of Systems ROS Unobtainable: Denies due to encephalopathy, due to endotracheal tube or due to mental condition Constitutional Constitutional ED: Denies chills or fever(s) Eyes Eyes: Denies blurry vision ENT ENT ED: Denies ear pain Cardiovascular Cardiovascular: Denies chest pain or palpitations Respiratory/Chest Respiratory/Chest: Denies cough or dyspnea Gastrointestinal Gastrointestinal: Denies abdominal pain or constipation Genitourinary Genitourinary ED: Denies dysuria or hematuria Musculoskeletal Musculoskeletal: Denies arthralgias, back pain, myalgias or neck pain Integumentary Denies abscess, Abrasions or rash Neurologic Neurologic: Denies headache(s) Psychiatric Psychiatric: Denies anxiety or depression Endocrine Endocrinology: Denies cold intolerance, heat intolerance, polydipsia or polyphagia Hematologic/Lymphatic Hematologic/Lymphatic: Reports none Allergic/Immunologic Allergic/Immunologic ED: Denies mouth swelling, tongue swelling or urticaria EXAM Physical Exam Narrative Exam Narrative: 58-year-old female no acute distress vital signs stable afebrile. Pulse ox 95% on room air no hypoxia. Patient is awake alert and talking. She knows where she is at. Currently she denies any complaints. H EENT exam unremarkable. Pupils are reactive light. Mytrex membranes. No facial or head trauma. Neck nontender no meningismus. No lymphadenopathy. Lungs clear to auscultation bilaterally. Heart regular rhythm rate about 100 no murmur. Chest wall and ribs nontender. Abdomen soft nontender. On her chest wall she has a left vas cath in place. Dry and clean. She has a stitch of a prior on the right. Moving all 4 extremities. Nontender. No edema. Normal range of motion. Normal strength. No deformity. Back nontender. Skin unremarkable. Neurologically she is awake alert. Answering questions following commands. She is amnestic to what ever happened at the dialysis center. GCS 15. NIH 0 currently. Const Vital Signs: 01/25/24 14:02 01/25/24 15:01 Temperature 98.2 F Temperature Source Oral Pulse Rate 102 H 98 Respiratory Rate 19 H 18 Blood Pressure 145/79 H 126/92 H Blood Pressure Mean 101 103 Pulse Ox 95 96 Oxygen Delivery Method Room Air Room Air Positive well nourished and well developed; Negative for cachectic, contractures or unkempt General Appearance ED: well developed and NAD; Negative for unkempt, cachectic, contractures, cyanotic, diaphoretic or pallor Nutritional Appearance: Negative for cachectic HEENT Reports moist mucous membranes; Denies dry mucous membranes Negative for trauma or tenderness Mouth ED: No dry mucous membranes Mouth: No dry mucous membranes Eyes EOMs intact bilaterally General Eye ED: Negative for pale conjunctiva or scleral icterus Neck no lymphadenopathy, supple and no JVD General: Negative for tenderness Lymph Lymphatic: Negative for other Chest Wall inspection of chest normal and palpation of chest normal Chest: Negative for other Resp normal respiratory effort and clear to auscultation bilaterally Effort and Inspection: Negative for retractions Auscultation: Negative for rales, rhonchi or wheezes Cardio regular rate, regular rhythm, S1 normal heart sound, S2 normal heart sound and no murmurs Palpation: Negative for palpable S3 or palpable S4 Rate: Negative for bradycardia, tachycardic or other GI normal to inspection, nondistended, normoactive bowel sounds, non-tender, non- distended and no masses Inspection: Negative for abdominal distention Auscultation: normoactive bowel sounds Palpation: soft; Negative for tender, guarding, mass or rebound tenderness present Back/Spine no CVA tenderness General Back: Negative for CVA tenderness Cervical Spine: Negative for cervical spine tenderness Thoracic Spine / Upper Back: Negative for thoracic spinal tenderness or paraspinal muscle tenderness Lumbar Spine / Lower Back: Negative for lumbar spinal tenderness Extremity normal to inspection General Extremety ED: Negative for edema or tenderness General Extremity: Negative for edema Neuro oriented x3 and CN's II-XII intact bilaterally Sensorium / Orientation: alert; Negative for orientation impaired, lethargic or stuporous Motor Exam: strength 5/5 throughout; Negative for general weakness or strength abnormal Psych mental status grossly normal Appearance: Negative for unkempt or other Attitude: No agitated Mood & Affect: Negative for depressed, anxious or tearful Skin no rashes or lesions noted and no wounds General Skin Exam: Negative for jaundice or pallor Lesions: No lesion noted Rashes: No rashes noted Trauma: Negative for abrasion Wounds: Negative for wounds noted MDM MDM MDM Narrative Medical decision making narrative: 58-year-old female history of diabetes and end-stage renal disease dialysis. I spoke to the dialysis center. She had a full run on Tuesday. Today she had a run of about 1 hour and 40 minutes. Typically she goes about 3 and half hours. He said during her dialysis she had a brief episode of mental status change. That is since resolved. They did not notice any fever or hypotension and was unsure of what exactly happened and sent her in for evaluation.Well-appearing 61-year-old male that I saw in triage. Vital signs are stable afebrile. Pulse ox 97% on room air no signs hypoxia. H EENT exam pupils round reactive light. Extra motions are intact. No facial droop. Normal speech. No trauma. Neck nontender. Lungs clear to auscultation bilaterally. Heart regular rate and rhythm rate about 85 no murmur. Chest wall and ribs nontender. Abdomen soft nontender. Back nontender. Moving all 4 extremities. 5 out of 5 hr assistant strength. Dorsi plantarflexion intact. No drift. Fingertip to nose within normal limits. Neurologic exam at this time is normal. NIH is 0. Patient currently has no complaints. Screening labs to be obtained. She has a benign exam. Her mental status is her baseline. She has had multiple CAT scans and MRIs in the past and although she needs an imaging at this time. Repeat exam patient doing well at 3:24 PM. Patient is awake and alert. She has no complaints. Her vital signs are stable. She feels comfortable being discharged home. She will follow-up with dialysis on Tuesday. She knows to return if worse. She is comfortable with the plan. History & Record Review Discussion w/independent historian: Patient Additional record(s) reviewed:: Prior inpatient record, Prior outpatient record, Prior ED visit and Prior labs Lab Data Attestation: I reviewed the patient's lab results. Lab results narrative: CBC showed a white count 13.1. H&H 10.2 and 33.1. Platelets 243. All consistent with her baseline and prior labs. Electrolytes show sodium 135 gap 7. BUN/creatinine 36 and 5.19 consistent with her end-stage renal disease. Glucose 291. Labs: Laboratory Results - last 24 hr 01/25/24 01/25/24 14:10 14:42 WBC 13.1 H RBC 3.26 L Hgb 10.2 L Hct 33.1 L MCV 101.5 H MCH 31.3 MCHC 30.8 L RDW Std Deviation 56.5 H RDW Coeff of Fior 15.1 H Plt Count 243 MPV 10.5 Immature Gran % (Auto) 0.800 Neut % (Auto) 87.4 H Lymph % (Auto) 6.6 L Page % (Auto) 3.4 Eos % (Auto) 1.4 Baso % (Auto) 0.4 Absolute Neuts (auto) 11.5 H Absolute Lymphs (auto) 0.87 Nucleated RBC % 0 Sodium 135 L Potassium 4.7 Chloride 102 Carbon Dioxide 26.0 Anion Gap 7 BUN 36 H Creatinine 5.19 H Estim Creat Clear Calc 12.41 Est GFR (MDRD) Af Amer 11 L Est GFR (MDRD) Non-Af 9 L BUN/Creatinine Ratio 6.9 L Glucose 291 H Calcium 9.2 POC Glucose 267 H Discharge Plan Triage Chief Complaint: Alt LOC ED Provider: Sachin Schmitz Dx/Rx/DC Orders Clinical Impression: Acute alteration in mental status, History of end stage renal disease, History of stroke, History of diabetes mellitus Prescriptions: No Action paroxetine HCl 20 mg tablet 20 mg PO DAILY Patient Comments: TAKE 1 TABLET BY MOUTH EVERY DAY IN THE EVENING bupropion HCl 150 mg tablet extended release 24 hr 150 mg PO DAILY Patient Comments: TAKE 1 TABLET BY MOUTH EVERY DAY sennosides-docusate sodium [Stool Softener-Stimulant Laxat] 8.6-50 mg Tablet 2 tab PO BID PRN PRN (Reason: Constipation) Qty: 0 0RF ascorbic acid (vitamin C) [Vitamin C] 500 mg Tablet 500 mg PO BID clopidogrel 75 mg tablet 75 mg PO DAILY pantoprazole 40 mg tablet,delayed release (DR/EC) 40 mg PO BIDCM ferrous sulfate 325 mg (65 mg iron) tablet 325 mg PO .three times a week Patient Comments: takes three times a week, on Tuesday, and Tuesday insulin lispro [Humalog KwikPen Insulin] 100 unit/mL Insulin Pen See Protocol subcut TIDAC Qty: 0 0RF Protocol: 1. Sliding Scale Insulin Low Dosing Condition: 150-224 mg/dl = 1 unit Condition: 225-299 mg/dl = 2 units Condition: 300-374 mg/dl = 3 units Condition: 375-499 mg/dl = 4 units Condition: Greater than 449 call physician Protocol Text: - Use for Total Daily Dose of Insulin 15-27 units - Thin, elderly, renal patients LOW DOSING ALGORITHM insulin glargine-yfgn 100 unit/mL (3 mL) insulin pen 5 unit subcut QHS Qty: 15 0RF Rx Instructions: Hold if glucose less than 130 mg/dl gabapentin 100 mg capsule 100 mg PO .COMPLEX PRN (Reason: pain) Rx Instructions: 100 mg orally 3 times a week Tuesday, Tuesday and Tuesday cyclobenzaprine 5 mg tablet 5 mg PO TID PRN (Reason: muscle spasm) Qty: 21 0RF atorvastatin 20 mg tablet 20 mg PO DAILY Patient Comments: TAKE 1 TABLET BY MOUTH EVERY DAY calcium acetate(phosphat bind) 667 mg capsule 676 mg PO TID Patient Comments: TAKE 1 CAPSULE BY MOUTH THREE TIMES A DAY WITH FOOD folic acid 800 mcg tablet 0.8 mg PO DAILY Patient Comments: TAKE 1 TABLET BY MOUTH EVERY DAY levothyroxine 25 mcg tablet 25 mcg PO DAILY Patient Comments: TAKE 1 TABLET BY MOUTH EVERY DAY BEFORE BREAKFAST insulin aspart U-100 100 unit/mL (3 mL) insulin pen SUBCUT Patient Comments: PLEASE SEE ATTACHED FOR DETAILED DIRECTIONS olanzapine 5 mg tablet 5 mg PO QHS Patient Comments: TAKE 1 TABLET BY MOUTH EVERYDAY AT BEDTIME oxycodone-acetaminophen 5-325 mg tablet 1 tab PO Q6H PRN (Reason: pain) Patient Comments: TAKE 1 TABLET BY MOUTH EVERY 6 HOURS NEEDED amlodipine 5 mg tablet 5 mg PO DAILY carvedilol 12.5 mg tablet 12.5 mg PO BID Rx Instructions: must administer with a meal/food hydralazine 25 mg tablet 25 mg PO TID insulin glargine [Lantus Solostar U-100 Insulin] 100 unit/mL (3 mL) insulin pen 20 unit subcut DAILY lidocaine-silicone, adhesive topical Patient Comments: 1 patch daily melatonin 5 mg capsule 5 mg PO .bedtime insulin aspart U-100 [Novolog FlexPen U-100 Insulin] 6 unit subcut TID Patient Comments: give with meals ondansetron 4 mg tablet,disintegrating 4 mg PO DAILY PRN (Reason: nausea and vomiting) pramipexole dihydrochloride 1.5 mg PO BID isosorbide dinitrate 10 mg Tablet 20 mg PO TID acetaminophen 325 mg capsule 325 mg PO Q4H PRN (Reason: fever or pain) antacid extra assorted fruit tablets 750 mg PO .every 4 hours PRN (Reason: tums) calcitriol 0.5 mcg capsule 0.5 mcg PO .COMPLEX Rx Instructions: 0.5 mcg orally three times a week; cloNIDine See Rx Instructions .ROUTE .COMPLEX Rx Instructions: 0.1mg every 4 hours as needed diphenhydramine 25 mg IV Rx Instructions: every 30 minutes as needed. loperamide [Anti-Diarrheal (loperamide)] 2 mg capsule 2 mg PO Q4H PRN (Reason: loose stool) Rx Instructions: administer after each loose stool until symptoms controlled; do not exceed 8 mg per 24 hrs Mircera See Rx Instructions .ROUTE .COMPLEX Rx Instructions: intravenous every 2 weeks nitroglycerin [Nitrostat] 0.4 mg tablet, sublingual 0.4 mg sublingual Q5M Rx Instructions: do not exceed 3 doses per episode promethazine 25 mg tablet 25 mg PO Q4H PRN (Reason: nausea and vomiting) Venofer Rx Instructions: 50 mg one time a week. cefepime in dextrose 5 % 1 gram/50 mL piggyback 1 g IV .as directed Rx Instructions: Dose with dialysis sessions. 1gm on Tue, 2gm on , 1gm on , 2gm on Tuesday. Stop date 01/30/24. Dx: MSSA endocarditis. Weekly bmp and cbc. Fax to [phone]. aspirin 81 mg capsule 81 mg PO DAILY Qty: 30 1RF Primary Care Provider: Raúl Eric Referrals: Raúl Eric MD [Primary Care Provider] - 3-5 Days Activity Restrictions/Additional Instructions: Your exam is unremarkable. Your labs to your normal baseline labs. Consistent with prior labs are done. Follow-up with your primary care physician. Return if you are feeling worse. Follow-up with dialysis on Tuesday. Disposition Disposition: Home, Self Care
[2024-01-25 14:44] LABS: Absolute Lymphocyte Count 0.87 X10^3/uL (0.83-4.51); Absolute Neutrophil Count 11.5 X10^3/uL (2.0-7.7); Basophil# 0.05 X10^3/uL; Basophil% 0.4 % (0-1); Eosinophil# 0.18 X10^3/uL; Eosinophils% 1.4 % (0-5); Hematocrit 33.1 % (37-47); Hemoglobin 10.2 g/dL (12.0-15.0); Lymphocyte # 0.87 X10^3/ul (0.83-4.51); Lymphocyte % 6.6 % (19-41); Mean Corp Hgb Conc 30.8 g/dL (32-36); Mean Corpuscular Hgb 31.3 pg (27.0-32.0); Mean Corpuscular Volume 101.5 fL (81-99); Mean Platelet Vol. 10.5 fl (6.2-12.0); Monocyte# 0.45 X10^3/uL; Monocyte% 3.4 % (0-10); NRBC Flagged by Analyzer 0 % (0-5); Neutrophil # 11.46 X10^3/uL (2.7-7.7); Neutrophil % 87.4 % (47-70); Platelet Count 243 K/mm3 (150-450); RBC Distribution Width CV 15.1 % (11.6-14.6); RBC Distribution Width SD 56.5 fl (35.1-43.9); Red Blood Count 3.26 M/mm3 (4.2-5.4); White Blood Count 13.1 K/mm3 (4.4-11.0)
[2024-01-25 15:01] VITALS: BP 126/92; PULSE 98; RESP 18; O2SAT 96
[2024-01-25 15:02] LABS: Bedside Glucose 267 mg/dL (74-106)
[2024-01-25 15:11] LABS: Anion Gap 7 (5-15); BUN 36 mg/dL (7-18); BUN/Creat Ratio 6.9 RATIO (10-20); Calcium,Total 9.2 mg/dL (8.5-10.1); Chloride 102 mmol/L (98-107); Creatinine, Serum 5.19 mg/dL (0.55-1.02); EST Glomerular Filtration Rate 9 mL/min (>60); Est Glom Filt Rate - Afr Amer 11 mL/min (>60); Estimated Creatinine Clearance 12.41 ml/min; Glucose 291 mg/dL (74-106); Potassium 4.7 mmol/L (3.5-5.1); Sodium Level 135 mmol/L (136-145)
--- NOTE | 2024-01-25 16:17 | ED.RN ---
UNABLE TO GET IN TOUCH WITH PT'S DAUGHTER OR NIECE, WILL CHECK ON [facility] TO TRANSPORT PT HOME.
--- NOTE | 2024-01-25 16:27 | ED.RN ---
PT'S DAUGHTER CALLED [facility] AND IS NOT ABLE TO TAKE PT HOME, PT'S DAUGHTER, MARIXA IS WORKING UNTIL 1800. MARIXA REQUESTED FOR [facility] TO TRANSPORT PT HOME.
--- NOTE | 2024-01-25 16:28 | ED.RN ---
AARON CALLED, IZAIAH WITHIN THE HOUR (BY 1720)
[2024-01-25 17:07] VITALS: BP 148/79; PULSE 93; RESP 18; TEMP 36.1; O2SAT 95
== END 2024-01-25 17:09 | disposition home or self-care (01) ==
PROVIDERS: Emergency Provider Emergency Medicine; PCP Family Medicine; Visit Provider Emergency Medicine
DX: R41.82 Altered mental status, unspecified (principal); I12.0 Hypertensive chronic kidney disease with stage 5 chronic kidney disease or end stage renal disease; N18.6 End stage renal disease; E11.22 Type 2 diabetes mellitus with diabetic chronic kidney disease; Z79.4 Long term (current) use of insulin; Z99.2 Dependence on renal dialysis; Z79.82 Long term (current) use of aspirin; Z79.02 Long term (current) use of antithrombotics/antiplatelets; Z79.899 Other long term (current) drug therapy; I25.2 Old myocardial infarction; Z86.73 Personal history of transient ischemic attack (TIA), and cerebral infarction without residual deficits; Z95.5 Presence of coronary angioplasty implant and graft
CPT/HCPCS: 80048; 82962; 85025; 99284; A4216

== ENCOUNTER 2024-01-30 15:50 | Emergency (ER) | payer MEDICARE, MEDICAID, SELFPAY ==
[2018-09-21 13:23] VITALS: BMI 29.3
[2024-01-30 15:51] VITALS: BP 126/71; PULSE 97; RESP 16; TEMP 36.4; O2SAT 98; BMI 27.8
[2024-01-30] MEDS: Lidocaine 1% (20 ml mdv) 20 ML Vial 3 ML INFILT (16:01)
--- NOTE | 2024-01-30 16:17 | EX.ED.DYSGE1 ---
[facility] <BRIAN Woods - Last Filed: 01/30/24 16:23> History of Present Illness Chief Complaint: Wound Check Narrative Narrative: Patient is a 58-year-old female with history of stroke, diabetes, end-stage renal disease on dialysis, patient has dialysis Tuesday. Patient had a Vas-Cath placed in the left chest, she is here because the sutures that held into the skin are no longer connected to the skin. Patient that she moderate amount in her sleep, she is unsure how long they have been detached. Patient is also complaining of acute on chronic feet pain. Patient is here for evaluation [facility] <BRIAN Woods - Last Filed: 01/30/24 16:23> [facility] Medical History Acquired varus deformity of left foot Acquired varus deformity of right foot Acute lumbar radiculopathy Acute on chronic anemia Adult failure to thrive Amputation foot, bilat Anemia due to chronic illness Anemia in chronic illness Anxiety and depression Atherosclerosis of [place] coronary artery of [place] heart without angina pectoris Back pain, chronic Bilateral edema of lower extremity Carotid artery stenosis Cellulitis Cellulitis of both lower extremities Charcot's joint of right foot Charcot's joint, left ankle and foot Charcot's joint, right ankle and foot Chronic anemia Chronic foot pain Chronic kidney disease, stage 3b Chronic kidney disease, stage 4 (severe) Chronic renal disease, stage 4, severely decreased glomerular filtration rate (GFR) between 15-29 mL/min/1.73 square meter Chronic renal insufficiency Chronic ulcer of left foot with fat layer exposed 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 Chronic ulcer of right foot with fat layer exposed Chronic ulcer of right foot with necrosis of bone Chronic ulcer of right foot with necrosis of muscle Chronic ulcer of right leg with fat layer exposed COVID-19 (08/28/21) CRF (chronic renal failure) Debility Delayed wound healing Diabetes Diabetes mellitus with diabetic polyneuropathy Diabetic foot ulcer associated with type 2 diabetes mellitus Diabetic foot ulcers Diabetic infection of left foot Diabetic polyneuropathy Diabetic ulcer of right ankle Elevated troponin End stage renal disease ESRD on hemodialysis Essential (primary) hypertension Essential hypertension Foot osteomyelitis, left GERD (gastroesophageal reflux disease) Hemoglobin A1c greater than 9.0% HLD (hyperlipidemia) Hyperparathyroidism, secondary renal Hypertension Iron deficiency anemia Ischemic cardiomyopathy MSSA bacteremia Myocardial infarct Non-compliance Non-pressure chronic ulcer of other part of left foot with fat layer exposed Non-pressure chronic 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 layer exposed Non-smoker Normocytic anemia NSTEMI (non-ST elevated myocardial infarction) (09/20/18) Obesity (BMI 30.0-34.9) Osteomyelitis Osteomyelitis of left foot Osteomyelitis of metatarsal RLS (restless legs syndrome) Stage 4 chronic kidney disease TIA (transient ischemic attack) Type 2 diabetes mellitus 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 Ulcer of left foot with fat layer exposed Ulcer of left foot with muscle involvement without evidence of necrosis Ulcer of left foot with necrosis of muscle Ulcer of right lower extremity with fat layer exposed Home Medications paroxetine HCl 20 mg tablet 20 mg PO DAILY DEPRESSION 07/07/21 [History Last Taken 04/07/22] bupropion HCl 150 mg 24 hr tablet, extended release 150 mg PO DAILY mood 02/04/22 [History Last Taken 04/07/22] sennosides 8.6 mg-docusate sodium 50 mg tablet (Stool Softener-Stimulant Laxative) 2 tab PO BID PRN PRN Constipation #0 tabs 04/24/22 [Rx Last Taken Unknown] ascorbic acid (vitamin C) 500 mg tablet (Vitamin C) 500 mg PO BID supplement 05/05/22 [History Last Taken Unknown] clopidogrel 75 mg tablet 75 mg PO DAILY prevent stroke 07/19/22 [History Last Taken Unknown] ferrous sulfate 325 mg (65 mg iron) tablet 325 mg PO .three times a week anemia 07/19/22 [History Last Taken Unknown] pantoprazole 40 mg tablet,delayed release 40 mg PO BIDCM GERD 07/19/22 [History Last Taken Unknown] insulin glargine-yfgn 100 unit/mL (3 mL) subcutaneous pen 5 unit (0.05 mL) subcut QHS blood sugar #15 mL 07/21/22 [Rx Last Taken Unknown] insulin lispro 100 unit/mL subcutaneous pen (Humalog KwikPen (U-100) Insulin) See Protocol subcut TIDAC #0 mL 07/21/22 [Rx Last Taken Unknown] cyclobenzaprine 5 mg tablet 5 mg PO TID PRN muscle spasm #21 tabs 11/26/23 [Rx Last Taken Unknown] gabapentin 100 mg capsule 100 mg PO .COMPLEX PRN pain 11/26/23 [History Last Taken Unknown] Mircera See Rx Instructions .Route .COMPLEX dialysis 12/16/23 [History Last Taken Unknown] Venofer iron 12/16/23 [History Last Taken Unknown] acetaminophen 325 mg capsule 325 mg PO Q4H PRN fever or pain 12/16/23 [History Last Taken Unknown] amlodipine 5 mg tablet 5 mg PO DAILY bp 12/16/23 [History Last Taken Unknown] antacid extra assorted fruit tablets 750 mg PO .every 4 hours PRN tums 12/16/23 [History Last Taken Unknown] atorvastatin 20 mg tablet 20 mg PO DAILY cholestrol 12/16/23 [History Last Taken Unknown] calcitriol 0.5 mcg capsule 0.5 mcg PO .COMPLEX on dialysis 12/16/23 [History Last Taken Unknown] calcium acetate(phosphat bind) 667 mg capsule 676 mg PO TID is on dialysis 12/16/23 [History Last Taken Unknown] carvedilol 12.5 mg tablet 12.5 mg PO BID heart and bp 12/16/23 [History Last Taken Unknown] cloNIDine See Rx Instructions .Route .COMPLEX dialysis 12/16/23 [History Last Taken Unknown] diphenhydramine 25 mg IV itching 12/16/23 [History Last Taken Unknown] folic acid 800 mcg tablet 0.8 mg PO DAILY supplement 12/16/23 [History Last Taken Unknown] hydralazine 25 mg tablet 25 mg PO TID bp 12/16/23 [History Last Taken Unknown] insulin aspart U-100 6 unit subcut TID blood glucose 12/16/23 [History Last Taken Unknown] insulin aspart U-100 100 unit/mL (3 mL) subcutaneous pen subcut 12/16/23 [History Last Taken Unknown] insulin glargine 100 unit/mL (3 mL) subcutaneous pen (Lantus Solostar U-100 Insulin) 20 unit subcut DAILY blood glucose 12/16/23 [History Last Taken Unknown] isosorbide dinitrate 10 mg tablet 20 mg PO TID bp and heart 12/16/23 [History Last Taken Unknown] levothyroxine 25 mcg tablet 25 mcg PO DAILY thyroid 12/16/23 [History Last Taken Unknown] lidocaine-silicone, adhesive topical pain 12/16/23 [History Last Taken Unknown] loperamide 2 mg capsule (Anti-Diarrheal (loperamide)) 2 mg PO Q4H PRN loose stool 12/16/23 [History Last Taken Unknown] melatonin 5 mg capsule 5 mg PO .bedtime sleep 12/16/23 [History Last Taken Unknown] nitroglycerin 0.4 mg sublingual tablet (Nitrostat) 0.4 mg sublingual Q5M chest pain 12/16/23 [History Last Taken Unknown] olanzapine 5 mg tablet 5 mg PO QHS sleep 12/16/23 [History Last Taken Unknown] ondansetron 4 mg disintegrating tablet 4 mg PO DAILY PRN nausea and vomiting 12/16/23 [History Last Taken Unknown] oxycodone-acetaminophen 5 mg-325 mg tablet 1 tab PO Q6H PRN pain 12/16/23 [History Last Taken Unknown] pramipexole dihydrochloride 1.5 mg PO BID unknown 12/16/23 [History Last Taken Unknown] promethazine 25 mg tablet 25 mg PO Q4H PRN nausea and vomiting 12/16/23 [History Last Taken Unknown] aspirin 81 mg capsule 81 mg PO DAILY #30 caps 12/26/23 [Rx Last Taken Unknown] cefepime 1 gram/50 mL in dextrose 5 % intravenous piggyback 1 g IV .as directed 12/26/23 [Rx Last Taken Unknown] Allergy/AdvReac Type Severity Reaction Status Date / Time Penicillins Allergy swelling Verified 01/30/24 15:51 in throat vancomycin Allergy Itching Verified 01/30/24 15:51 metronidazole AdvReac Nausea Verified 01/30/24 15:51 oxycodone [From OxyContin] AdvReac Shortness Verified 01/30/24 15:51 of breath Family History Mother Diabetes CVA (cerebral vascular accident) Brother CAD (coronary artery disease) CABG X 3 Cancer testicular Diabetes Brother CAD (coronary artery disease) CABG X3 Diabetes Brother CAD (coronary artery disease) Stents Diabetes Sister CAD (coronary artery disease) CABG x 3 CVA (cerebral vascular accident) Diabetes Surgical History History of bilateral carpal tunnel release History of History of coronary artery stent placement (12/31/20) History of foot surgery History of rotator cuff surgery Social History household members: none number of children: 2 current occupational status: disabled Smoking Status: Never smoker alcohol intake: never substance use type: does not use caffeine: Yes Type: carbonated beverages Number of servings: 2 ROS <BRIAN Woods - Last Filed: 01/30/24 16:23> ROS ED ROS Narrative Constitutional: Negative for fever, chills, weight loss, weakness Eyes: Negative for vision loss, vision change, double vision ENT: Negative for any sore throat, ear pain, congestion Cardiovascular: Negative for any chest pain, tightness, palpitations Respiratory: Negative for any cough, sputum production, hemoptysis, dyspnea, dyspnea on exertion, orthopnea Gastrointestinal: Negative for any abdominal pain, nausea, vomiting, diarrhea, constipation, blood in stool, blood in vomit : Negative for any urinary frequency, dysuria, retention, blood in urine Muscle skeletal: Negative for any neck pain, back pain. Positive for feet pain Neurological: Negative for any headache, syncope, dizziness Skin: Negative for any rashes, itching, abrasions, lacerations. Patient has a Vas-Cath left chest that is not connected by sutures to the skin. Psychiatric: Negative for any depression, anxiety, stress, suicidal ideation, homicidal ideation Hematologic: Negative for any excessive bruising, easy bleeding EXAM <BRIAN Woods - Last Filed: 01/30/24 16:23> Physical Exam Narrative Exam Narrative: Vital signs reviewed. HEET: Head normocephalic atraumatic, TMs clear bilaterally. Posterior pharynx is clear, moist mucous membranes. Nares clear bilaterally. Neck: Supple with no lymphadenopathy or tenderness. No signs of meningismus. Cardiac: Regular rate and rhythm no murmurs gallops or rubs, equal peripheral pulses bilaterally. Respiratory: Lungs clear to auscultation bilaterally. No chest tenderness. Patient does have a Vas-Cath to the left upper chest. There is no evidence of any cellulitis, patient does have sutures to the wing catheter through the holes however they are not connecting to any skin. Abdomen: Soft, nontender, nondistended. No abdominal bruit or pulsatile masses. No hepatosplenomegaly Extremities: No peripheral edema, no signs of gross trauma or deformity. Active full range of motion of all extremities. Neuro: Cranial nerves II through XII intact, no focal neurological deficits. Skin: Clean dry and intact with no rash, purpura, petechiae, vesicles or pustules. Backs/flank: No CVA tenderness, no midline spinal tenderness, no deformity. Psych: Normal mood and affect. No SI, HI or acute psychosis. Const Vital Signs: 01/30/24 15:51 Temperature 97.6 F L Temperature Source Temporal Pulse Rate 97 Respiratory Rate 16 Blood Pressure 126/71 H Blood Pressure Mean 89 Pulse Ox 98 Oxygen Delivery Method Room Air Positive well nourished and well developed General Appearance ED: well developed <Rik Guadalupe MD - Last Filed: 01/30/24 16:52> Physical Exam Const Vital Signs: 01/30/24 15:51 Temperature 97.6 F L Temperature Source Temporal Pulse Rate 97 Respiratory Rate 16 Blood Pressure 126/71 H Blood Pressure Mean 89 Pulse Ox 98 Oxygen Delivery Method Room Air MDM <BRIAN Woods - Last Filed: 01/30/24 16:23> [facility] Treatment and Re-Evaluation :: Differential diagnosis includes however is not limited to: Cellulitis, wound dehiscence, skin rash Patient appears generally well, patient appears nontoxic, vital signs are stable. Patient presents to the emergency department for Vas-Cath the left chest to be sutured down to the skin. Patient patient also complaining of chronic foot pain. Patient was given Percocet for her feet. Patient's Vas-Cath that was dressed by a 2 x 2, I did take off the dressing. I cleaned the area with ChloraPrep. It does appear to be in no distress the Vas-Cath appears to be intact, no signs or symptoms of cellulitis. I was able to anesthetize the ER with lidocaine. Is able to place 2 sutures through the holes of the butterfly catheter 4-0 Ethilon, they are now tied to the skin. Edges approximate nicely. Sterile dressing placed. Patient will follow-up outpatient. Patient stable for discharge <Rik Guadalupe MD - Last Filed: 01/30/24 16:52> [facility] Narrative Medical decision making narrative: Dr. Guadalupe: I have personally performed a face to face assessment of the patient and have reviewed the WILL Note. I performed a substantive portion of the visit including all aspects of the following. My rodriguez findings include: History is patient presents from dialysis center with need for left chest Vas-Cath to be tied down. Patient admits that she was pulling at it in the middle of the night while she was sleeping. Moved from right side of chest last month. Exam is afebrile. Vital signs noted. Nontoxic-appearing. Positive vas cath left chest with broken suture more medially. Medical Decision Making: Secure vas cath to skin of chest wall with suture. I do not feel that imaging or laboratory work is indicated. Discharge. Other additions or changes: [None] History & Record Review Discussion w/independent historian: Patient Discharge Plan Triage Chief Complaint: Wound Check ED Midlevel Provider: Clifford Barrios ED Provider: Rik Guadalupe Dx/Rx/DC Orders Clinical Impression: Visit for wound care, Vascular catheter dysfunction Prescriptions: No Action paroxetine HCl 20 mg tablet 20 mg PO DAILY Patient Comments: TAKE 1 TABLET BY MOUTH EVERY DAY IN THE EVENING bupropion HCl 150 mg tablet extended release 24 hr 150 mg PO DAILY Patient Comments: TAKE 1 TABLET BY MOUTH EVERY DAY sennosides-docusate sodium [Stool Softener-Stimulant Laxat] 8.6-50 mg Tablet 2 tab PO BID PRN PRN (Reason: Constipation) Qty: 0 0RF ascorbic acid (vitamin C) [Vitamin C] 500 mg Tablet 500 mg PO BID clopidogrel 75 mg tablet 75 mg PO DAILY pantoprazole 40 mg tablet,delayed release (DR/EC) 40 mg PO BIDCM ferrous sulfate 325 mg (65 mg iron) tablet 325 mg PO .three times a week Patient Comments: takes three times a week, on Tuesday, and Tuesday insulin lispro [Humalog KwikPen Insulin] 100 unit/mL Insulin Pen See Protocol subcut TIDAC Qty: 0 0RF Protocol: 1. Sliding Scale Insulin Low Dosing Condition: 150-224 mg/dl = 1 unit Condition: 225-299 mg/dl = 2 units Condition: 300-374 mg/dl = 3 units Condition: 375-499 mg/dl = 4 units Condition: Greater than 449 call physician Protocol Text: - Use for Total Daily Dose of Insulin 15-27 units - Thin, elderly, renal patients LOW DOSING ALGORITHM insulin glargine-yfgn 100 unit/mL (3 mL) insulin pen 5 unit subcut QHS Qty: 15 0RF Rx Instructions: Hold if glucose less than 130 mg/dl gabapentin 100 mg capsule 100 mg PO .COMPLEX PRN (Reason: pain) Rx Instructions: 100 mg orally 3 times a week Tuesday, Tuesday and Tuesday cyclobenzaprine 5 mg tablet 5 mg PO TID PRN (Reason: muscle spasm) Qty: 21 0RF atorvastatin 20 mg tablet 20 mg PO DAILY Patient Comments: TAKE 1 TABLET BY MOUTH EVERY DAY calcium acetate(phosphat bind) 667 mg capsule 676 mg PO TID Patient Comments: TAKE 1 CAPSULE BY MOUTH THREE TIMES A DAY WITH FOOD folic acid 800 mcg tablet 0.8 mg PO DAILY Patient Comments: TAKE 1 TABLET BY MOUTH EVERY DAY levothyroxine 25 mcg tablet 25 mcg PO DAILY Patient Comments: TAKE 1 TABLET BY MOUTH EVERY DAY BEFORE BREAKFAST insulin aspart U-100 100 unit/mL (3 mL) insulin pen SUBCUT Patient Comments: PLEASE SEE ATTACHED FOR DETAILED DIRECTIONS olanzapine 5 mg tablet 5 mg PO QHS Patient Comments: TAKE 1 TABLET BY MOUTH EVERYDAY AT BEDTIME oxycodone-acetaminophen 5-325 mg tablet 1 tab PO Q6H PRN (Reason: pain) Patient Comments: TAKE 1 TABLET BY MOUTH EVERY 6 HOURS NEEDED amlodipine 5 mg tablet 5 mg PO DAILY carvedilol 12.5 mg tablet 12.5 mg PO BID Rx Instructions: must administer with a meal/food hydralazine 25 mg tablet 25 mg PO TID insulin glargine [Lantus Solostar U-100 Insulin] 100 unit/mL (3 mL) insulin pen 20 unit subcut DAILY lidocaine-silicone, adhesive topical Patient Comments: 1 patch daily melatonin 5 mg capsule 5 mg PO .bedtime insulin aspart U-100 [Novolog FlexPen U-100 Insulin] 6 unit subcut TID Patient Comments: give with meals ondansetron 4 mg tablet,disintegrating 4 mg PO DAILY PRN (Reason: nausea and vomiting) pramipexole dihydrochloride 1.5 mg PO BID isosorbide dinitrate 10 mg Tablet 20 mg PO TID acetaminophen 325 mg capsule 325 mg PO Q4H PRN (Reason: fever or pain) antacid extra assorted fruit tablets 750 mg PO .every 4 hours PRN (Reason: tums) calcitriol 0.5 mcg capsule 0.5 mcg PO .COMPLEX Rx Instructions: 0.5 mcg orally three times a week; cloNIDine See Rx Instructions .ROUTE .COMPLEX Rx Instructions: 0.1mg every 4 hours as needed diphenhydramine 25 mg IV Rx Instructions: every 30 minutes as needed. loperamide [Anti-Diarrheal (loperamide)] 2 mg capsule 2 mg PO Q4H PRN (Reason: loose stool) Rx Instructions: administer after each loose stool until symptoms controlled; do not exceed 8 mg per 24 hrs Mircera See Rx Instructions .ROUTE .COMPLEX Rx Instructions: intravenous every 2 weeks nitroglycerin [Nitrostat] 0.4 mg tablet, sublingual 0.4 mg sublingual Q5M Rx Instructions: do not exceed 3 doses per episode promethazine 25 mg tablet 25 mg PO Q4H PRN (Reason: nausea and vomiting) Venofer Rx Instructions: 50 mg one time a week. cefepime in dextrose 5 % 1 gram/50 mL piggyback 1 g IV .as directed Rx Instructions: Dose with dialysis sessions. 1gm on Tue, 2gm on , 1gm on , 2gm on Tuesday. Stop date 01/30/24. Dx: MSSA endocarditis. Weekly bmp and cbc. Fax to [phone]. aspirin 81 mg capsule 81 mg PO DAILY Qty: 30 1RF Primary Care Provider: Raúl Eric Referrals: Raúl Eric MD [Primary Care Provider] - Activity Restrictions/Additional Instructions: Keep the area clean and dry. Disposition Disposition: Home, Self Care
[2024-01-30] MEDS: Oxycodone/Apap 5/325 Tablet PO (16:27)
[2024-01-30 16:50] VITALS: BP 120/80; PULSE 91; RESP 18; TEMP 36.6; O2SAT 97
--- NOTE | 2024-01-30 16:51 | ED.RN ---
Attempted to call patients daughter and niece, but there was no answer by the daughter. incorrect phone number by niece.
--- NOTE | 2024-01-30 17:58 | ED.RN ---
1758: Attempted to call daughter again about the patient needing a ride home. No answer at this time.
--- NOTE | 2024-01-30 18:02 | ED.RN ---
ATTEMPTED TO CONTACT PTS DAUGHTER AND NIECE LISTED IN CONTACTS. DAUGHTER'S NUMBER WENT TO [employer] AND [employer] BOX WAS FULL SO UNABLE TO LEAVE A MESSAGE. [employer]'S NUMBER IS NOT A VALID NUMBER TO REACH.
== END 2024-01-30 19:07 | disposition home or self-care (01) ==
PROVIDERS: Emergency Provider Emergency Medicine; PCP Family Medicine; Visit Provider Emergency Medicine
DX: Z45.2 Encounter for adjustment and management of vascular access device (principal); N18.6 End stage renal disease; I12.0 Hypertensive chronic kidney disease with stage 5 chronic kidney disease or end stage renal disease; E11.22 Type 2 diabetes mellitus with diabetic chronic kidney disease; E11.42 Type 2 diabetes mellitus with diabetic polyneuropathy; Z79.4 Long term (current) use of insulin; G89.29 Other chronic pain; Z99.2 Dependence on renal dialysis; M79.671 Pain in right foot; M79.672 Pain in left foot; Z79.82 Long term (current) use of aspirin; Z79.890 Hormone replacement therapy; Z79.899 Other long term (current) drug therapy; Z86.73 Personal history of transient ischemic attack (TIA), and cerebral infarction without residual deficits; Z95.5 Presence of coronary angioplasty implant and graft
CPT/HCPCS: 12001; 99283

== ENCOUNTER 2024-02-07 13:09 | Emergency (ER) | payer MEDICARE, MEDICAID, SELFPAY ==
[2018-09-21 13:23] VITALS: BMI 29.3
[2024-02-07 13:11] VITALS: BP 171/85; PULSE 84; RESP 18; TEMP 36.8; O2SAT 97; BMI 27.6
[2024-02-07 13:14] VITALS: BP 183/79; PULSE 85; RESP 18; TEMP 36.8; O2SAT 97
--- NOTE | 2024-02-07 13:38 | EX.ED.DYSGE1 ---
HPI History of Present Illness Chief Complaint: Wound [facility] Medical History Acquired varus deformity of left foot Acquired varus deformity of right foot Acute lumbar radiculopathy Acute on chronic anemia Adult failure to thrive Amputation foot, bilat Anemia due to chronic illness Anemia in chronic illness Anxiety and depression Atherosclerosis of [place] coronary artery of [place] heart without angina pectoris Back pain, chronic Bilateral edema of lower extremity Carotid artery stenosis Cellulitis Cellulitis of both lower extremities Charcot's joint of right foot Charcot's joint, left ankle and foot Charcot's joint, right ankle and foot Chronic anemia Chronic foot pain Chronic kidney disease, stage 3b Chronic kidney disease, stage 4 (severe) Chronic renal disease, stage 4, severely decreased glomerular filtration rate (GFR) between 15-29 mL/min/1.73 square meter Chronic renal insufficiency Chronic ulcer of left foot with fat layer exposed 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 Chronic ulcer of right foot with fat layer exposed Chronic ulcer of right foot with necrosis of bone Chronic ulcer of right foot with necrosis of muscle Chronic ulcer of right leg with fat layer exposed COVID-19 (08/28/21) CRF (chronic renal failure) Debility Delayed wound healing Diabetes Diabetes mellitus with diabetic polyneuropathy Diabetic foot ulcer associated with type 2 diabetes mellitus Diabetic foot ulcers Diabetic infection of left foot Diabetic polyneuropathy Diabetic ulcer of right ankle Elevated troponin End stage renal disease ESRD on hemodialysis Essential (primary) hypertension Essential hypertension Foot osteomyelitis, left GERD (gastroesophageal reflux disease) Hemoglobin A1c greater than 9.0% HLD (hyperlipidemia) Hyperparathyroidism, secondary renal Hypertension Iron deficiency anemia Ischemic cardiomyopathy MSSA bacteremia Myocardial infarct Non-compliance Non-pressure chronic ulcer of other part of left foot with fat layer exposed Non-pressure chronic 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 layer exposed Non-smoker Normocytic anemia NSTEMI (non-ST elevated myocardial infarction) (09/20/18) Obesity (BMI 30.0-34.9) Osteomyelitis Osteomyelitis of left foot Osteomyelitis of metatarsal RLS (restless legs syndrome) Stage 4 chronic kidney disease TIA (transient ischemic attack) Type 2 diabetes mellitus 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 Ulcer of left foot with fat layer exposed Ulcer of left foot with muscle involvement without evidence of necrosis Ulcer of left foot with necrosis of muscle Ulcer of right lower extremity with fat layer exposed Home Medications paroxetine HCl 20 mg tablet 20 mg PO DAILY DEPRESSION 07/07/21 [History Last Taken 04/07/22] bupropion HCl 150 mg 24 hr tablet, extended release 150 mg PO DAILY mood 02/04/22 [History Last Taken 04/07/22] sennosides 8.6 mg-docusate sodium 50 mg tablet (Stool Softener-Stimulant Laxative) 2 tab PO BID PRN PRN Constipation #0 tabs 04/24/22 [Rx Last Taken Unknown] ascorbic acid (vitamin C) 500 mg tablet (Vitamin C) 500 mg PO BID supplement 05/05/22 [History Last Taken Unknown] clopidogrel 75 mg tablet 75 mg PO DAILY prevent stroke 07/19/22 [History Last Taken Unknown] ferrous sulfate 325 mg (65 mg iron) tablet 325 mg PO .three times a week anemia 07/19/22 [History Last Taken Unknown] pantoprazole 40 mg tablet,delayed release 40 mg PO BIDCM GERD 07/19/22 [History Last Taken Unknown] insulin glargine-yfgn 100 unit/mL (3 mL) subcutaneous pen 5 unit (0.05 mL) subcut QHS blood sugar #15 mL 07/21/22 [Rx Last Taken Unknown] insulin lispro 100 unit/mL subcutaneous pen (Humalog KwikPen (U-100) Insulin) See Protocol subcut TIDAC #0 mL 07/21/22 [Rx Last Taken Unknown] cyclobenzaprine 5 mg tablet 5 mg PO TID PRN muscle spasm #21 tabs 11/26/23 [Rx Last Taken Unknown] gabapentin 100 mg capsule 100 mg PO .COMPLEX PRN pain 11/26/23 [History Last Taken Unknown] Mircera See Rx Instructions .Route .COMPLEX dialysis 12/16/23 [History Last Taken Unknown] Venofer iron 12/16/23 [History Last Taken Unknown] acetaminophen 325 mg capsule 325 mg PO Q4H PRN fever or pain 12/16/23 [History Last Taken Unknown] amlodipine 5 mg tablet 5 mg PO DAILY bp 12/16/23 [History Last Taken Unknown] antacid extra assorted fruit tablets 750 mg PO .every 4 hours PRN tums 12/16/23 [History Last Taken Unknown] atorvastatin 20 mg tablet 20 mg PO DAILY cholestrol 12/16/23 [History Last Taken Unknown] calcitriol 0.5 mcg capsule 0.5 mcg PO .COMPLEX on dialysis 12/16/23 [History Last Taken Unknown] calcium acetate(phosphat bind) 667 mg capsule 676 mg PO TID is on dialysis 12/16/23 [History Last Taken Unknown] carvedilol 12.5 mg tablet 12.5 mg PO BID heart and bp 12/16/23 [History Last Taken Unknown] cloNIDine See Rx Instructions .Route .COMPLEX dialysis 12/16/23 [History Last Taken Unknown] diphenhydramine 25 mg IV itching 12/16/23 [History Last Taken Unknown] folic acid 800 mcg tablet 0.8 mg PO DAILY supplement 12/16/23 [History Last Taken Unknown] hydralazine 25 mg tablet 25 mg PO TID bp 12/16/23 [History Last Taken Unknown] insulin aspart U-100 6 unit subcut TID blood glucose 12/16/23 [History Last Taken Unknown] insulin aspart U-100 100 unit/mL (3 mL) subcutaneous pen subcut 12/16/23 [History Last Taken Unknown] insulin glargine 100 unit/mL (3 mL) subcutaneous pen (Lantus Solostar U-100 Insulin) 20 unit subcut DAILY blood glucose 12/16/23 [History Last Taken Unknown] isosorbide dinitrate 10 mg tablet 20 mg PO TID bp and heart 12/16/23 [History Last Taken Unknown] levothyroxine 25 mcg tablet 25 mcg PO DAILY thyroid 12/16/23 [History Last Taken Unknown] lidocaine-silicone, adhesive topical pain 12/16/23 [History Last Taken Unknown] loperamide 2 mg capsule (Anti-Diarrheal (loperamide)) 2 mg PO Q4H PRN loose stool 12/16/23 [History Last Taken Unknown] melatonin 5 mg capsule 5 mg PO .bedtime sleep 12/16/23 [History Last Taken Unknown] nitroglycerin 0.4 mg sublingual tablet (Nitrostat) 0.4 mg sublingual Q5M chest pain 12/16/23 [History Last Taken Unknown] olanzapine 5 mg tablet 5 mg PO QHS sleep 12/16/23 [History Last Taken Unknown] ondansetron 4 mg disintegrating tablet 4 mg PO DAILY PRN nausea and vomiting 12/16/23 [History Last Taken Unknown] pramipexole dihydrochloride 1.5 mg PO BID unknown 12/16/23 [History Last Taken Unknown] promethazine 25 mg tablet 25 mg PO Q4H PRN nausea and vomiting 12/16/23 [History Last Taken Unknown] aspirin 81 mg capsule 81 mg PO DAILY #30 caps 12/26/23 [Rx Last Taken Unknown] cefepime 1 gram/50 mL in dextrose 5 % intravenous piggyback 1 g IV .as directed 12/26/23 [Rx Last Taken Unknown] cephalexin 500 mg capsule 500 mg PO Q8H 7 days #21 caps 02/07/24 [Rx Last Taken Unknown] sulfamethoxazole 800 mg-trimethoprim 160 mg tablet (Bactrim DS) 1 tab PO BID 7 days #14 tabs 02/07/24 [Rx Last Taken Unknown] Allergy/AdvReac Type Severity Reaction Status Date / Time Penicillins Allergy swelling Verified 02/07/24 13:16 in throat vancomycin Allergy Itching Verified 02/07/24 13:16 metronidazole AdvReac Nausea Verified 02/07/24 13:16 oxycodone [From OxyContin] AdvReac Shortness Verified 02/07/24 13:16 of breath Family History Mother Diabetes CVA (cerebral vascular accident) Brother CAD (coronary artery disease) CABG X 3 Cancer testicular Diabetes Brother CAD (coronary artery disease) CABG X3 Diabetes Brother CAD (coronary artery disease) Stents Diabetes Sister CAD (coronary artery disease) CABG x 3 CVA (cerebral vascular accident) Diabetes Surgical History History of bilateral carpal tunnel release History of History of coronary artery stent placement (12/31/20) History of foot surgery History of rotator cuff surgery Social History household members: none number of children: 2 current occupational status: disabled Smoking Status: Never smoker alcohol intake: never substance use type: does not use caffeine: Yes Type: carbonated beverages Number of servings: 2 EXAM Physical Exam Const Vital Signs: 02/07/24 13:11 02/07/24 13:14 02/07/24 15:40 Temperature 98.3 F 98.3 F 98.4 F Temperature Source Oral Oral Pulse Rate 84 85 77 Respiratory Rate 18 18 16 Blood Pressure 171/85 H 183/79 H 168/70 H Blood Pressure Mean 113 113 102 Pulse Ox 97 97 99 Oxygen Delivery Method Room Air Room Air [facility] [place] Narr[place] Medical decision making narrative: HISTORY OF PRESENT ILLNESS: 58-year-old female presents with concern for wound to her right foot. She notes she is in severe pain. Notes she follows with pain management and is recently been taken off her usual pain medication which is an opiate. She notes she is only has gabapentin for pain. Denies any fever or chills. Denies any chest pain. REVIEW OF SYSTEMS: Pertinent positives: Foot wound Pertinent negatives: Fever, vomiting PHYSICAL EXAM: Nursing triage notes reviewed, Vital signs reviewed Constitutional: please see mdm Extremities: Slight edema noted to the right foot. Neuro: No focal neurological deficits, cranial nerves II through XII intact, 5/5 strength in all extremities. Intact sensation to light touch in all extremities, 2+ reflexes bilateral patella tendons. Normal gait. No ataxia. Skin: Confluent erythema noted to the dorsal surface of the right foot. There is a wound on the plantar lateral surface of the right foot that appears chronic well-healed with no active drainage fluctuance induration crepitus or bullae. MEDICAL DECISION MAKING: Chief Complaint: Wound External records reviewed: History of MRSA Factors affecting care: Type 2 diabetes, end-stage renal disease Social determinants of health: none History obtained from others: none Consults: none [facility] Narrative: Patient was hemodynamically stable, afebrile and nontoxic-appearing. Exam with edema and confluent erythema to the dorsum of the foot. There is a chronic appearing ulcer to the lateral right foot however this does not appear acutely infected is not indurated or fluctuant. There is no crepitus or bullae noted. I considered the following differential diagnosis: Cellulitis, abscess, necrotizing fasciitis Exam not consistent with necrotizing fasciitis. There is no crepitus, bullae. There is no induration or fluctuance to suggest abscess. Clinical exam most consistent with likely cellulitis. Patient did not appear toxic had normal vital signs and was resting comfortably. She deserves a course of oral antibiotic from home to monitor symptoms closely for any change or worsening. I discussed risk and benefits of admission versus discharge. Discussed risk of admission such as cost, time, C. difficile, pneumonia, blood clots. Patient expressed understanding and agreed the risk of admission and likely outweigh the benefits at this time. Agreed to return if symptoms changed or worsen. The patient and/or family, caregivers express understanding. The patient and/or family, caregivers agrees with the plan. Shared decision making: I will have a discussion with the patient and or visitors regarding risk/benefits of further testing or admission. They will be made aware of of the risk/benefits inherent in this decision they will be given the opportunity to voice understanding. Total critical care time today provided was at least 0 minutes. This excludes separately billable procedures. Critical care time (if documented) is secondary to the patient having high probability of clinically significant/life threatening deterioration in the patient's condition which required my urgent intervention. Impression: 1. Chronic foot ulcer 2. Cellulitis 3. History of end-stage renal disease 4. History of type 2 diabetes Dispo: Discharge home This note was generated with [employer] dictation software. It may contain incorrect words, spelling, and punctuation that were not noted in review of the chart prior to signing. Discharge Plan Triage Chief Complaint: Wound ED Provider: Maurice Kay Dx/Rx/DC Orders Clinical Impression: Cellulitis, ESRD on dialysis Instructions: Cellulitis Dc Prescriptions: New cephalexin 500 mg capsule 500 mg PO Q8H 7 Days Qty: 21 0RF sulfamethoxazole-trimethoprim [Bactrim DS] 800-160 mg tablet 1 tab PO BID 7 Days Qty: 14 0RF No Action paroxetine HCl 20 mg tablet 20 mg PO DAILY Patient Comments: TAKE 1 TABLET BY MOUTH EVERY DAY IN THE EVENING bupropion HCl 150 mg tablet extended release 24 hr 150 mg PO DAILY Patient Comments: TAKE 1 TABLET BY MOUTH EVERY DAY sennosides-docusate sodium [Stool Softener-Stimulant Laxat] 8.6-50 mg Tablet 2 tab PO BID PRN PRN (Reason: Constipation) Qty: 0 0RF ascorbic acid (vitamin C) [Vitamin C] 500 mg Tablet 500 mg PO BID clopidogrel 75 mg tablet 75 mg PO DAILY pantoprazole 40 mg tablet,delayed release (DR/EC) 40 mg PO BIDCM ferrous sulfate 325 mg (65 mg iron) tablet 325 mg PO .three times a week Patient Comments: takes three times a week, on Tuesday, and Tuesday insulin lispro [Humalog KwikPen Insulin] 100 unit/mL Insulin Pen See Protocol subcut TIDAC Qty: 0 0RF Protocol: 1. Sliding Scale Insulin Low Dosing Condition: 150-224 mg/dl = 1 unit Condition: 225-299 mg/dl = 2 units Condition: 300-374 mg/dl = 3 units Condition: 375-499 mg/dl = 4 units Condition: Greater than 449 call physician Protocol Text: - Use for Total Daily Dose of Insulin 15-27 units - Thin, elderly, renal patients LOW DOSING ALGORITHM insulin glargine-yfgn 100 unit/mL (3 mL) insulin pen 5 unit subcut QHS Qty: 15 0RF Rx Instructions: Hold if glucose less than 130 mg/dl gabapentin 100 mg capsule 100 mg PO .COMPLEX PRN (Reason: pain) Rx Instructions: 100 mg orally 3 times a week Tuesday, Tuesday and Tuesday cyclobenzaprine 5 mg tablet 5 mg PO TID PRN (Reason: muscle spasm) Qty: 21 0RF atorvastatin 20 mg tablet 20 mg PO DAILY Patient Comments: TAKE 1 TABLET BY MOUTH EVERY DAY calcium acetate(phosphat bind) 667 mg capsule 676 mg PO TID Patient Comments: TAKE 1 CAPSULE BY MOUTH THREE TIMES A DAY WITH FOOD folic acid 800 mcg tablet 0.8 mg PO DAILY Patient Comments: TAKE 1 TABLET BY MOUTH EVERY DAY levothyroxine 25 mcg tablet 25 mcg PO DAILY Patient Comments: TAKE 1 TABLET BY MOUTH EVERY DAY BEFORE BREAKFAST insulin aspart U-100 100 unit/mL (3 mL) insulin pen SUBCUT Patient Comments: PLEASE SEE ATTACHED FOR DETAILED DIRECTIONS olanzapine 5 mg tablet 5 mg PO QHS Patient Comments: TAKE 1 TABLET BY MOUTH EVERYDAY AT BEDTIME amlodipine 5 mg tablet 5 mg PO DAILY carvedilol 12.5 mg tablet 12.5 mg PO BID Rx Instructions: must administer with a meal/food hydralazine 25 mg tablet 25 mg PO TID insulin glargine [Lantus Solostar U-100 Insulin] 100 unit/mL (3 mL) insulin pen 20 unit subcut DAILY Hold Instructions: Ordered lidocaine-silicone, adhesive topical Patient Comments: 1 patch daily melatonin 5 mg capsule 5 mg PO .bedtime insulin aspart U-100 [Novolog FlexPen U-100 Insulin] 6 unit subcut TID Patient Comments: give with meals ondansetron 4 mg tablet,disintegrating 4 mg PO DAILY PRN (Reason: nausea and vomiting) pramipexole dihydrochloride 1.5 mg PO BID isosorbide dinitrate 10 mg Tablet 20 mg PO TID acetaminophen 325 mg capsule 325 mg PO Q4H PRN (Reason: fever or pain) antacid extra assorted fruit tablets 750 mg PO .every 4 hours PRN (Reason: tums) calcitriol 0.5 mcg capsule 0.5 mcg PO .COMPLEX Rx Instructions: 0.5 mcg orally three times a week; cloNIDine See Rx Instructions .ROUTE .COMPLEX Rx Instructions: 0.1mg every 4 hours as needed diphenhydramine 25 mg IV Hold Instructions: MD Ordered Rx Instructions: every 30 minutes as needed. loperamide [Anti-Diarrheal (loperamide)] 2 mg capsule 2 mg PO Q4H PRN (Reason: loose stool) Rx Instructions: administer after each loose stool until symptoms controlled; do not exceed 8 mg per 24 hrs Mircera See Rx Instructions .ROUTE .COMPLEX Rx Instructions: intravenous every 2 weeks nitroglycerin [Nitrostat] 0.4 mg tablet, sublingual 0.4 mg sublingual Q5M Rx Instructions: do not exceed 3 doses per episode promethazine 25 mg tablet 25 mg PO Q4H PRN (Reason: nausea and vomiting) Venofer Rx Instructions: 50 mg one time a week. cefepime in dextrose 5 % 1 gram/50 mL piggyback 1 g IV .as directed Rx Instructions: Dose with dialysis sessions. 1gm on Tue, 2gm on , 1gm on , 2gm on Tuesday. Stop date 01/30/24. Dx: MSSA endocarditis. Weekly bmp and cbc. Fax to [phone]. aspirin 81 mg capsule 81 mg PO DAILY Qty: 30 1RF Primary Care Provider: Raúl Eric Referrals: Raúl Eric MD [Primary Care Provider] - Activity Restrictions/Additional Instructions: Thank you for trusting us with your care today! Please take Tylenol (2 pills, 650 mg), ibuprofen (2 pills, 400 mg) every 6 hours as needed for pain and fever control. Please take antibiotics as prescribed until course complete. Please take all medicines only as prescribed. Do not take additional doses. Please return to the emergency department if your symptoms change or worsen. Specifically develop vomiting, fever if you cannot feel or move your involved extremity. Please follow with your primary care physician and pain management for further outpatient evaluation and management. Disposition Disposition: Home, Self Care Discharge Date/Time: 02/07/24 15:40
[2024-02-07] MEDS: Ibuprofen 200 MG Tablet 400 MG PO (14:19)
[2024-02-07] MEDS: Smz/Tmp Ds Tablet 1 TABLET PO (14:19)
[2024-02-07] MEDS: Cephalexin 250 MG Capsule 500 MG PO (14:20)
--- NOTE | 2024-02-07 14:46 | NURSING ---
Trying to figure out transportation back home for pt- her niece that she lives with is unable to be reached by phone and working per pt, her daughter listed is out of town. Pt states that she is normally wheelchair bound. She states she is unable to pay for a cab. Called physician ambulance for possible wheelchair transport.
--- NOTE | 2024-02-07 14:53 | NURSING ---
CALLED [facility], ETA IS 30 MIN
[2024-02-07 15:40] VITALS: BP 168/70; PULSE 77; RESP 16; TEMP 36.9; O2SAT 99
== END 2024-02-07 15:40 | disposition home or self-care (01) ==
PROVIDERS: Emergency Provider Emergency Medicine; PCP Family Medicine; Visit Provider Emergency Medicine
DX: E11.621 Type 2 diabetes mellitus with foot ulcer (principal); N18.6 End stage renal disease; I12.0 Hypertensive chronic kidney disease with stage 5 chronic kidney disease or end stage renal disease; L97.519 Non-pressure chronic ulcer of other part of right foot with unspecified severity; E11.22 Type 2 diabetes mellitus with diabetic chronic kidney disease; Z79.4 Long term (current) use of insulin; E11.42 Type 2 diabetes mellitus with diabetic polyneuropathy; L03.115 Cellulitis of right lower limb; R60.0 Localized edema; Z99.2 Dependence on renal dialysis; Z79.02 Long term (current) use of antithrombotics/antiplatelets; Z79.899 Other long term (current) drug therapy; Z95.5 Presence of coronary angioplasty implant and graft
CPT/HCPCS: 99283

== ENCOUNTER → 2024-02-09 | Outpatient (CLI) | payer MEDICARE, MEDICAID, SELFPAY ==
[2018-09-21 13:23] VITALS: BMI 29.3
[2024-02-09 11:42] LABS: Amphetamine Urine VISTA NEGATIVE (<1000 ng/mL); Barbiturate Urine VISTA NEGATIVE (< 200 ng/mL); Benzodiazepine Urine VISTA NEGATIVE (< 200 ng/mL); Cocaine Urine VISTA NEGATIVE (< 300 ng/mL); Ecstacy Urine VISTA NEGATIVE (< 500 ng/mL); Methadone Urine VISTA NEGATIVE (< 300 ng/mL); PCP Urine VISTA NEGATIVE (< 25 ng/mL); THC Urine VISTA NEGATIVE (< 50 ng/mL); Vista UDS pH Range 8
[2024-02-09 11:52] LABS: OXY Internal Control LINE = VALID (VALID)
[2024-02-09 11:53] LABS: Oxycodone Drug Screen Negative (<100 ng/mL)
== END | disposition home or self-care (01) ==
LOC: LAB 10:52
PROVIDERS: PCP Family Medicine; Referring Provider Anesthesiology Pain Medicine; Visit Provider Anesthesiology Pain Medicine
DX: F11.20 Opioid dependence, uncomplicated (principal)
CPT/HCPCS: 80307; 80365; G0480

== ENCOUNTER 2024-02-13 16:27 | Emergency (ER) | payer MEDICARE, MEDICAID, SELFPAY ==
[2018-09-21 13:23] VITALS: BMI 29.3
[2024-02-13 16:28] VITALS: BP 152/95; PULSE 84; RESP 20; TEMP 36.3; O2SAT 94; BMI 29.0
--- NOTE | 2024-02-13 16:55 | CT_ITS ---
We are attempting to reach an attending provider to discuss findings. An addendum with communication details will be sent when the communication is complete. EXAM: CT HEAD WITHOUT INTRAVENOUS CONTRAST CLINICAL INDICATION: head injury TECHNIQUE: Multiple axial images were obtained of the head without intravenous contrast. This CT exam was performed using one or more of the following dose reduction techniques: automated exposure control, adjustment of the mA and/or kV according to patient size, and/or use of iterative reconstruction technique. COMPARISON: MRI brain dated 12/22/2023 FINDINGS: BRAIN AND EXTRA-AXIAL SPACES: There are small areas of increased density along the gyri seen in the area of previous infarct in the right parietal lobe which may represent minimal petechial hemorrhages in area previously infarcted brain. There is no large hemorrhage or mass effect. There is no extra-axial or subarachnoid hemorrhage. Posterior fossa structures are unremarkable. Basal cisterns are patent. BONES/JOINTS: Unremarkable. No discrete lytic or blastic abnormalities. SINUSES: Unremarkable as visualized. Clear. MASTOID AIR CELLS: Unremarkable. Clear. ORBITS: Visualized globes, extraocular muscles, optic nerves and retrobulbar fat appear unremarkable. CT/Brain/Head without Contrast IMPRESSION: There is increased density along gyri in a previously infarcted portion of right parietal lobe which may represent small petechial hemorrhage. There is no mass effect or shift. Electronically Signed: Manish Beck MD at 18:00 EDT ,
[2024-02-13 17:25] LABS: Absolute Lymphocyte Count 0.95 X10^3/uL (0.83-4.51); Absolute Neutrophil Count 3.9 X10^3/uL (2.0-7.7); Basophil# 0.03 X10^3/uL; Basophil% 0.5 % (0-1); Eosinophils% 3.5 % (0-5); Hematocrit 29.6 % (37-47); Hemoglobin 9.6 g/dL (12.0-15.0); Lymphocyte # 0.95 X10^3/ul (0.83-4.51); Lymphocyte % 16.8 % (19-41); Mean Corp Hgb Conc 32.4 g/dL (32-36); Mean Corpuscular Hgb 31.5 pg (27.0-32.0); Mean Platelet Vol. 10.2 fl (6.2-12.0); Monocyte# 0.57 X10^3/uL; Monocyte% 10.1 % (0-10); NRBC Flagged by Analyzer 0 % (0-5); Neutrophil # 3.88 X10^3/uL (2.7-7.7); Neutrophil % 68.7 % (47-70); Platelet Count 250 K/mm3 (150-450); RBC Distribution Width CV 13.9 % (11.6-14.6); RBC Distribution Width SD 48.9 fl (35.1-43.9); Red Blood Count 3.05 M/mm3 (4.2-5.4); White Blood Count 5.7 K/mm3 (4.4-11.0)
[2024-02-13] MEDS: HYDROcodone Bitartrate/Apap 5/325 Tablet PO (17:28)
[2024-02-13] MEDS: Ondansetron 4 MG/2 ML Vial IV (17:28)
--- NOTE | 2024-02-13 17:31 | EDS_ITS ---
HPI <BRIAN Woods - Last Filed: 02/13/24 19:23> History of Present Illness Chief Complaint: Weakness Narrative Narrative: Patient is a 58-year-old female with history of end-stage renal disease on dialysis, Tuesday, CVA, chronic pain who presents to the emergency department for multiple complaints. Patient had a nausea and vomiting episode after dialysis today, patient also had a head injury which occurred 2 days ago when she rolled out of bed. Patient states she has a headache. She is also complaining about her bilateral lower legs which is a chronic problem for her. Patient was seen here not long ago for bilateral leg pain, cellulitis. Patient states she did have some generalized weakness over the last couple days. [facility] <BRIAN Woods - Last Filed: 02/13/24 19:23> [facility] Medical History Acquired varus deformity of left foot Acquired varus deformity of right foot Acute lumbar radiculopathy Acute on chronic anemia Adult failure to thrive Amputation foot, bilat Anemia due to chronic illness Anemia in chronic illness Anxiety and depression Atherosclerosis of [place] coronary artery of [place] heart without angina pectoris Back pain, chronic Bilateral edema of lower extremity Carotid artery stenosis Cellulitis Cellulitis of both lower extremities Charcot's joint of right foot Charcot's joint, left ankle and foot Charcot's joint, right ankle and foot Chronic anemia Chronic foot pain Chronic kidney disease, stage 3b Chronic kidney disease, stage 4 (severe) Chronic renal disease, stage 4, severely decreased glomerular filtration rate (GFR) between 15-29 mL/min/1.73 square meter Chronic renal insufficiency Chronic ulcer of left foot with fat layer exposed 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 Chronic ulcer of right foot with fat layer exposed Chronic ulcer of right foot with necrosis of bone Chronic ulcer of right foot with necrosis of muscle Chronic ulcer of right leg with fat layer exposed COVID-19 (08/28/21) CRF (chronic renal failure) Debility Delayed wound healing Diabetes Diabetes mellitus with diabetic polyneuropathy Diabetic foot ulcer associated with type 2 diabetes mellitus Diabetic foot ulcers Diabetic infection of left foot Diabetic polyneuropathy Diabetic ulcer of right ankle Elevated troponin End stage renal disease ESRD on hemodialysis Essential (primary) hypertension Essential hypertension Foot osteomyelitis, left GERD (gastroesophageal reflux disease) Hemoglobin A1c greater than 9.0% HLD (hyperlipidemia) Hyperparathyroidism, secondary renal Hypertension Iron deficiency anemia Ischemic cardiomyopathy MSSA bacteremia Myocardial infarct Non-compliance Non-pressure chronic ulcer of other part of left foot with fat layer exposed Non-pressure chronic 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 layer exposed Non-smoker Normocytic anemia NSTEMI (non-ST elevated myocardial infarction) (09/20/18) Obesity (BMI 30.0-34.9) Osteomyelitis Osteomyelitis of left foot Osteomyelitis of metatarsal RLS (restless legs syndrome) Stage 4 chronic kidney disease TIA (transient ischemic attack) Type 2 diabetes mellitus 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 Ulcer of left foot with fat layer exposed Ulcer of left foot with muscle involvement without evidence of necrosis Ulcer of left foot with necrosis of muscle Ulcer of right lower extremity with fat layer exposed Home Medications paroxetine HCl 20 mg tablet 20 mg PO DAILY DEPRESSION 07/07/21 [History Last Taken 04/07/22] bupropion HCl 150 mg 24 hr tablet, extended release 150 mg PO DAILY mood 02/04/22 [History Last Taken 04/07/22] sennosides 8.6 mg-docusate sodium 50 mg tablet (Stool Softener-Stimulant Laxative) 2 tab PO BID PRN PRN Constipation #0 tabs 04/24/22 [Rx Last Taken Unknown] ascorbic acid (vitamin C) 500 mg tablet (Vitamin C) 500 mg PO BID supplement 05/05/22 [History Last Taken Unknown] clopidogrel 75 mg tablet 75 mg PO DAILY prevent stroke 07/19/22 [History Last Taken Unknown] ferrous sulfate 325 mg (65 mg iron) tablet 325 mg PO .three times a week anemia 07/19/22 [History Last Taken Unknown] pantoprazole 40 mg tablet,delayed release 40 mg PO BIDCM GERD 07/19/22 [History Last Taken Unknown] insulin glargine-yfgn 100 unit/mL (3 mL) subcutaneous pen 5 unit (0.05 mL) subcut QHS blood sugar #15 mL 07/21/22 [Rx Last Taken Unknown] insulin lispro 100 unit/mL subcutaneous pen (Humalog KwikPen (U-100) Insulin) See Protocol subcut TIDAC #0 mL 07/21/22 [Rx Last Taken Unknown] cyclobenzaprine 5 mg tablet 5 mg PO TID PRN muscle spasm #21 tabs 11/26/23 [Rx Last Taken Unknown] gabapentin 100 mg capsule 100 mg PO .COMPLEX PRN pain 11/26/23 [History Last Taken Unknown] Mircera See Rx Instructions .Route .COMPLEX dialysis 12/16/23 [History Last Taken Unknown] Venofer iron 12/16/23 [History Last Taken Unknown] acetaminophen 325 mg capsule 325 mg PO Q4H PRN fever or pain 12/16/23 [History Last Taken Unknown] amlodipine 5 mg tablet 5 mg PO DAILY bp 12/16/23 [History Last Taken Unknown] antacid extra assorted fruit tablets 750 mg PO .every 4 hours PRN tums 12/16/23 [History Last Taken Unknown] atorvastatin 20 mg tablet 20 mg PO DAILY cholestrol 12/16/23 [History Last Taken Unknown] calcitriol 0.5 mcg capsule 0.5 mcg PO .COMPLEX on dialysis 12/16/23 [History Last Taken Unknown] calcium acetate(phosphat bind) 667 mg capsule 676 mg PO TID is on dialysis 12/16/23 [History Last Taken Unknown] carvedilol 12.5 mg tablet 12.5 mg PO BID heart and bp 12/16/23 [History Last Taken Unknown] cloNIDine See Rx Instructions .Route .COMPLEX dialysis 12/16/23 [History Last Taken Unknown] diphenhydramine 25 mg IV itching 12/16/23 [History Last Taken Unknown] folic acid 800 mcg tablet 0.8 mg PO DAILY supplement 12/16/23 [History Last Taken Unknown] hydralazine 25 mg tablet 25 mg PO TID bp 12/16/23 [History Last Taken Unknown] insulin aspart U-100 6 unit subcut TID blood glucose 12/16/23 [History Last Taken Unknown] insulin aspart U-100 100 unit/mL (3 mL) subcutaneous pen subcut 12/16/23 [History Last Taken Unknown] insulin glargine 100 unit/mL (3 mL) subcutaneous pen (Lantus Solostar U-100 Insulin) 20 unit subcut DAILY blood glucose 12/16/23 [History Last Taken Unknow n] isosorbide dinitrate 10 mg tablet 20 mg PO TID bp and heart 12/16/23 [History Last Taken Unknown] levothyroxine 25 mcg tablet 25 mcg PO DAILY thyroid 12/16/23 [History Last Taken Unknown] lidocaine-silicone, adhesive topical pain 12/16/23 [History Last Taken Unknown] loperamide 2 mg capsule (Anti-Diarrheal (loperamide)) 2 mg PO Q4H PRN loose stool 12/16/23 [History Last Taken Unknown] melatonin 5 mg capsule 5 mg PO .bedtime sleep 12/16/23 [History Last Taken Unknown] nitroglycerin 0.4 mg sublingual tablet (Nitrostat) 0.4 mg sublingual Q5M chest pain 12/16/23 [History Last Taken Unknown] olanzapine 5 mg tablet 5 mg PO QHS sleep 12/16/23 [History Last Taken Unknown] ondansetron 4 mg disintegrating tablet 4 mg PO DAILY PRN nausea and vomiting 12/16/23 [History Last Taken Unknown] pramipexole dihydrochloride 1.5 mg PO BID unknown 12/16/23 [History Last Taken Unknown] promethazine 25 mg tablet 25 mg PO Q4H PRN nausea and vomiting 12/16/23 [History Last Taken Unknown] aspirin 81 mg capsule 81 mg PO DAILY #30 caps 12/26/23 [Rx Last Taken Unknown] cefepime 1 gram/50 mL in dextrose 5 % intravenous piggyback 1 g IV .as directed 12/26/23 [Rx Last Taken Unknown] cephalexin 500 mg capsule 500 mg PO Q8H 7 days #21 caps 02/07/24 [Rx Last Taken Unknown] sulfamethoxazole 800 mg-trimethoprim 160 mg tablet (Bactrim DS) 1 tab PO BID 7 days #14 tabs 02/07/24 [Rx Last Taken Unknown] Allergy/AdvReac Type Severity Reaction Status Date / Time Penicillins Allergy swelling Verified 02/13/24 16:33 in throat vancomycin Allergy Itching Verified 02/13/24 16:33 metronidazole AdvReac Nausea Verified 02/13/24 16:33 oxycodone [From OxyContin] AdvReac Shortness Verified 02/13/24 16:33 of breath Family History Mother Diabetes CVA (cerebral vascular accident) Brother CAD (coronary artery disease) CABG X 3 Cancer testicular Diabetes Brother CAD (coronary artery disease) CABG X3 Diabetes Brother CAD (coronary artery disease) Stents Diabetes Sister CAD (coronary artery disease) CABG x 3 CVA (cerebral vascular accident) Diabetes Surgical History History of bilateral carpal tunnel release History of History of coronary artery stent placement (12/31/20) History of foot surgery History of rotator cuff surgery Social History household members: none number of children: 2 current occupational status: disabled Smoking Status: Never smoker alcohol intake: never substance use type: does not use caffeine: Yes Type: carbonated beverages Number of servings: 2 ROS <BRIAN Woods - Last Filed: 02/13/24 19:23> ROS ED ROS Narrative Constitutional: Negative for fever, chills, weight loss, weakness Eyes: Negative for vision loss, vision change, double vision ENT: Negative for any sore throat, ear pain, congestion Cardiovascular: Negative for any chest pain, tightness, palpitations Respiratory: Negative for any cough, sputum production, hemoptysis, dyspnea, dyspnea on exertion, orthopnea Gastrointestinal: Negative for any abdominal pain, diarrhea, constipation, blood in stool, blood in vomit. Positive for nausea and vomiting : Negative for any urinary frequency, dysuria, retention, blood in urine Muscle skeletal: Negative for any neck pain, back pain. Positive bilateral leg pain Neurological: Negative for any syncope, dizziness. Positive for headache Skin: Negative for any rashes, itching, abrasions, lacerations Psychiatric: Negative for any depression, anxiety, stress, suicidal ideation, homicidal ideation Hematologic: Negative for any excessive bruising, easy bleeding EXAM <BRIAN Woods - Last Filed: 02/13/24 19:23> Physical Exam Narrative Exam Narrative: Vital signs reviewed. HEET: Head normocephalic atraumatic, TMs clear bilaterally. Posterior pharynx is clear, moist mucous membranes. Nares clear bilaterally. Pupils are equal round reactive to light, patient does have a subconjunctival hemorrhage to the left lateral eye. Neck: Supple with no lymphadenopathy or tenderness. No signs of meningismus. Cardiac: Regular rate and rhythm no murmurs gallops or rubs, equal peripheral pulses bilaterally. Respiratory: Lungs clear to auscultation bilaterally. No chest tenderness. Abdomen: Soft, nontender, nondistended. No abdominal bruit or pulsatile masses. No hepatosplenomegaly Extremities: No peripheral edema, no signs of gross trauma or deformity. Active full range of motion of all extremities. Patient does have what appears to be a chronic wound on the solar aspect of the right foot, slight redness to the big toe. No significant cellulitis, no drainage is noted. Neuro: Cranial nerves II through XII intact, no focal neurological deficits. Patient is sleepy however she does wake up with verbal stimuli, patient answers all questions appropriately. She is able to move all extremities. NIH stroke scale 0 Skin: Clean dry and intact with no rash, purpura, petechiae, vesicles or pustules. Backs/flank: No CVA tenderness, no midline spinal tenderness, no deformity. Psych: Normal mood and affect. No SI, HI or acute psychosis. Const Vital Signs: 02/13/24 16:28 02/13/24 16:45 02/13/24 18:28 Temperature 97.3 F L Temperature Source Temporal Pulse Rate 84 71 Respiratory Rate 20 H 16 Respiratory Effort Normal Respiratory Pattern Normal Blood Pressure 152/95 H 175/92 H Blood Pressure Mean 114 119 Pulse Ox 94 97 Oxygen Delivery Method Room Air Room Air 02/13/24 18:52 02/13/24 19:22 02/13/24 19:27 Temperature 97.8 F Temperature Source Pulse Rate 70 71 73 Respiratory Rate 20 H 18 16 Respiratory Effort Respiratory Pattern Blood Pressure 155/83 H 153/64 H 153/64 H Blood Pressure Mean 107 93 93 Pulse Ox 99 94 97 Oxygen Delivery Method Room Air Room Air Positive well nourished and well developed General Appearance ED: well developed <Dr. Maurice Kay, DO - Last Filed: 02/13/24 23:04> Physical Exam Const Vital Signs: 02/13/24 16:28 02/13/24 16:45 02/13/24 18:28 Temperature 97.3 F L Temperature Source Temporal Pulse Rate 84 71 Respiratory Rate 20 H 16 Respiratory Effort Normal Respiratory Pattern Normal Blood Pressure 152/95 H 175/92 H Blood Pressure Mean 114 119 Pulse Ox 94 97 Oxygen Delivery Method Room Air Room Air 02/13/24 18:52 02/13/24 19:22 02/13/24 19:27 Temperature 97.8 F Temperature Source Pulse Rate 70 71 73 Respiratory Rate 20 H 18 16 Respiratory Effort Respiratory Pattern Blood Pressure 155/83 H 153/64 H 153/64 H Blood Pressure Mean 107 93 93 Pulse Ox 99 94 97 Oxygen Delivery Method Room Air Room Air [facility] <Clifford Barrios NP-Matt - Last Filed: 02/13/24 19:23> [facility] Lab Data Labs: Laboratory Results - last 24 hr 02/13/24 17:15 WBC 5.7 RBC 3.05 L Hgb 9.6 L Hct 29.6 L MCV 97.0 MCH 31.5 MCHC 32.4 RDW Std Deviation 48.9 H RDW Coeff of Fior 13.9 Plt Count 250 MPV 10.2 Immature Gran % (Auto) 0.400 Neut % (Auto) 68.7 Lymph % (Auto) 16.8 L Snyder % (Auto) 10.1 H Eos % (Auto) 3.5 Baso % (Auto) 0.5 Absolute Neuts (auto) 3.9 Absolute Lymphs (auto) 0.95 Nucleated RBC % 0 Sodium 138 Potassium 4.1 Chloride 102 Carbon Dioxide 30.0 Anion Gap 6 BUN 39 H Creatinine 4.20 H Estim Creat Clear Calc 15.74 Est GFR (MDRD) Af Amer 14 L Est GFR (MDRD) Non-Af 12 L BUN/Creatinine Ratio 9.3 L Glucose 182 H Calcium 8.5 Radiography Diagnostic Testing: Clinical Impression(s) from Imaging Studies Brain CT 02/13/24 16:55 IMPRESSION: There is increased density along gyri in a previously infarcted portion of right parietal lobe which may represent small petechial hemorrhage. There is no mass effect or shift. Electronically Signed: Manish Beck MD at 18:00 EDT , ADDENDUM: 02/13/24 1827 IMPRESSION: There is increased density along gyri in a previously infarcted portion of right parietal lobe which may represent small petechial hemorrhage. There is no mass effect or shift. N.B. : The above Results were Read Back by Manish Beck MD to Clifford Barrios NP, and understanding confirmed on 02/13/2024 18:20:50 (ET). Electronically Signed: Manish Beck MD at 18:00 EDT , Cervical Spine CT 02/13/24 18:22 IMPRESSION: 1. No acute osseous abnormalities. 2. Degenerative changes with disc space narrowing. Electronically Signed: Manish Beck MD at 19:19 EDT , Treatment and Re-Evaluation :: Differential diagnosis includes however is not limited to: Closed head injury, concussion, skull fracture, intracranial bleeding, acute on chronic pain, gastroenteritis, viral syndrome Patient appears to be in no obvious respiratory distress, patient's vital signs are stable, presenting to the emerged part with headache, nausea and vomiting after mechanical fall. Patient will receive a CT scan of the brain, patient received basic laboratory values, as well as 1 [place]. Patient does not have any vomiting here, patient does not look dehydrated, patient will be reevaluated. All radiologic examinations were read, reviewed by the emergency department attending. From these reads, a plan of care will be put in place. Patient CT scan of the brain shows an increased density along the gyri in the previous infarcted portion of the right parietal lobe which may represent small petechial hemorrhage. There is no mass effect or shift. I did speak with radiologist regarding this. Secondary to this finding, I do the patient needs to be transferred to a trauma center. Patient is on Plavix, aspirin. I spoke with the patient, she will to go to [facility]. Spoke with trauma and [facility]. Patient CT scan of the cervical spine showed no acute osseous abnormality. At this time, patient will be admitted and transferred by squad to the [facility]. I spoke with who will be accepting. Patient is stable for discharge. <Dr. Maurice Kay, DO - Last Filed: 02/13/24 23:04> [facility] Lab Data Labs: Laboratory Results - last 24 hr 02/13/24 17:15 WBC 5.7 RBC 3.05 L Hgb 9.6 L Hct 29.6 L MCV 97.0 MCH 31.5 MCHC 32.4 RDW Std Deviation 48.9 H RDW Coeff of Fior 13.9 Plt Count 250 MPV 10.2 Immature Gran % (Auto) 0.400 Neut % (Auto) 68.7 Lymph % (Auto) 16.8 L Snyder % (Auto) 10.1 H Eos % (Auto) 3.5 Baso % (Auto) 0.5 Absolute Neuts (auto) 3.9 Absolute Lymphs (auto) 0.95 Nucleated RBC % 0 Sodium 138 Potassium 4.1 Chloride 102 Carbon Dioxide 30.0 Anion Gap 6 BUN 39 H Creatinine 4.20 H Estim Creat Clear Calc 15.74 Est GFR (MDRD) Af Amer 14 L Est GFR (MDRD) Non-Af 12 L BUN/Creatinine Ratio 9.3 L Glucose 182 H Calcium 8.5 Radiography Diagnostic Testing: Clinical Impression(s) from Imaging Studies Brain CT 02/13/24 16:55 IMPRESSION: There is increased density along gyri in a previously infarcted portion of right parietal lobe which may represent small petechial hemorrhage. There is no mass effect or shift. Electronically Signed: Manish Beck MD at 18:00 EDT , ADDENDUM: 02/13/24 1827 IMPRESSION: There is increased density along gyri in a previously infarcted portion of right parietal lobe which may represent small petechial hemorrhage. There is no mass effect or shift. N.B. : The above Results were Read Back by Manish Beck MD to Clifford Barrios NP, and understanding confirmed on 02/13/2024 18:20:50 (ET). Electronically Signed: Manish Beck MD at 18:00 EDT , Cervical Spine CT 02/13/24 18:22 IMPRESSION: 1. No acute osseous abnormalities. 2. Degenerative changes with disc space narrowing. Electronically Signed: Manish Beck MD at 19:19 EDT , Treatment and Re-Evaluation :: Differential diagnosis includes however is not limited to: Closed head injury, concussion, skull fracture, intracranial bleeding, acute on chronic pain, gastroenteritis, viral syndrome Patient appears to be in no obvious respiratory distress, patient's vital signs are stable, presenting to the emerged part with headache, nausea and vomiting after mechanical fall. Patient will receive a CT scan of the brain, patient received basic laboratory values, as well as 1 [place]. Patient does not have any vomiting here, patient does not look dehydrated, patient will be reevaluated. All radiologic examinations were read, reviewed by the emergency department attending. From these reads, a plan of care will be put in place. Patient CT scan of the brain shows an increased density along the gyri in the previous infarcted portion of the right parietal lobe which may represent small petechial hemorrhage. There is no mass effect or shift. I did speak with radiologist regarding this. Secondary to this finding, I do the patient needs to be transferred to a trauma center. Patient is on Plavix, aspirin. I spoke with the patient, she will to go to [facility]. Spoke with trauma and [facility]. Patient CT scan of the cervical spine showed no acute osseous abnormality. At this time, patient will be admitted and transferred by squad to the [facility]. I spoke with who will be accepting. Patient is stable for discharge. ED attending note: I evaluated the patient in conjunction with the WILL. I agree with his/her statements and above findings. I have personally performed a face to face a ssessment of the patient and have reviewed the WILL Note. I performed a substantive portion of the visit including all aspects of the following. I personally saw the patient performed chart review, physical exam, reviewed labs, imaging (if obtained), and formulated a treatment and management plan. This note was generated with Team Everest[employer] software. It may contain incorrect words, spelling, and punctuation that were not noted in review of the chart prior to signing. <Dr. Maurice Kay, DO - Last Filed: 02/13/24 23:04> Critical Care Time Critical Care Time: Yes Critical care time (excluding procedures): 30-74 minutes, Discussing w/Consultants, Arranging Admission or Transfer and Performing Direct Patient Care at Bedside Discharge Plan Triage Chief Complaint: Weakness ED Midlevel Provider: Clifford Barrios ED Provider: Maurice Kay Dx/Rx/DC Orders Prescriptions: No Action paroxetine HCl 20 mg tablet 20 mg PO DAILY Patient Comments: TAKE 1 TABLET BY MOUTH EVERY DAY IN THE EVENING bupropion HCl 150 mg tablet extended release 24 hr 150 mg PO DAILY Patient Comments: TAKE 1 TABLET BY MOUTH EVERY DAY sennosides-docusate sodium [Stool Softener-Stimulant Laxat] 8.6-50 mg Tablet 2 tab PO BID PRN PRN (Reason: Constipation) Qty: 0 0RF ascorbic acid (vitamin C) [Vitamin C] 500 mg Tablet 500 mg PO BID clopidogrel 75 mg tablet 75 mg PO DAILY pantoprazole 40 mg tablet,delayed release (DR/EC) 40 mg PO BIDCM ferrous sulfate 325 mg (65 mg iron) tablet 325 mg PO .three times a week Patient Comments: takes three times a week, on Tuesday, and Tuesday insulin lispro [Humalog KwikPen Insulin] 100 unit/mL Insulin Pen See Protocol subcut TIDAC Qty: 0 0RF Protocol: 1. Sliding Scale Insulin Low Dosing Condition: 150-224 mg/dl = 1 unit Condition: 225-299 mg/dl = 2 units Condition: 300-374 mg/dl = 3 units Condition: 375-499 mg/dl = 4 units Condition: Greater than 449 call physician Protocol Text: - Use for Total Daily Dose of Insulin 15-27 units - Thin, elderly, renal patients LOW DOSING ALGORITHM insulin glargine-yfgn 100 unit/mL (3 mL) insulin pen 5 unit subcut QHS Qty: 15 0RF Rx Instructions: Hold if glucose less than 130 mg/dl gabapentin 100 mg capsule 100 mg PO .COMPLEX PRN (Reason: pain) Rx Instructions: 100 mg orally 3 times a week Tuesday, Tuesday and Tuesday cyclobenzaprine 5 mg tablet 5 mg PO TID PRN (Reason: muscle spasm) Qty: 21 0RF cephalexin 500 mg capsule 500 mg PO Q8H 7 Days Qty: 21 0RF sulfamethoxazole-trimethoprim [Bactrim DS] 800-160 mg tablet 1 tab PO BID 7 Days Qty: 14 0RF atorvastatin 20 mg tablet 20 mg PO DAILY Patient Comments: TAKE 1 TABLET BY MOUTH EVERY DAY calcium acetate(phosphat bind) 667 mg capsule 676 mg PO TID Patient Comments: TAKE 1 CAPSULE BY MOUTH THREE TIMES A DAY WITH FOOD folic acid 800 mcg tablet 0.8 mg PO DAILY Patient Comments: TAKE 1 TABLET BY MOUTH EVERY DAY levothyroxine 25 mcg tablet 25 mcg PO DAILY Patient Comments: TAKE 1 TABLET BY MOUTH EVERY DAY BEFORE BREAKFAST insulin aspart U-100 100 unit/mL (3 mL) insulin pen SUBCUT Patient Comments: PLEASE SEE ATTACHED FOR DETAILED DIRECTIONS olanzapine 5 mg tablet 5 mg PO QHS Patient Comments: TAKE 1 TABLET BY MOUTH EVERYDAY AT BEDTIME amlodipine 5 mg tablet 5 mg PO DAILY carvedilol 12.5 mg tablet 12.5 mg PO BID Rx Instructions: must administer with a meal/food hydralazine 25 mg tablet 25 mg PO TID insulin glargine [Lantus Solostar U-100 Insulin] 100 unit/mL (3 mL) insulin pen 20 unit subcut DAILY Hold Instructions: MD Ordered lidocaine-silicone, adhesive topical Patient Comments: 1 patch daily melatonin 5 mg capsule 5 mg PO .bedtime insulin aspart U-100 [Novolog FlexPen U-100 Insulin] 6 unit subcut TID Patient Comments: give with meals ondansetron 4 mg tablet,disintegrating 4 mg PO DAILY PRN (Reason: nausea and vomiting) pramipexole dihydrochloride 1.5 mg PO BID isosorbide dinitrate 10 mg Tablet 20 mg PO TID acetaminophen 325 mg capsule 325 mg PO Q4H PRN (Reason: fever or pain) antacid extra assorted fruit tablets 750 mg PO .every 4 hours PRN (Reason: tums) calcitriol 0.5 mcg capsule 0.5 mcg PO .COMPLEX Rx Instructions: 0.5 mcg orally three times a week; cloNIDine See Rx Instructions .ROUTE .COMPLEX Rx Instructions: 0.1mg every 4 hours as needed diphenhydramine 25 mg IV Hold Instructions: MD Ordered Rx Instructions: every 30 minutes as needed. loperamide [Anti-Diarrheal (loperamide)] 2 mg capsule 2 mg PO Q4H PRN (Reason: loose stool) Rx Instructions: administer after each loose stool until symptoms controlled; do not exceed 8 mg per 24 hrs Mircera See Rx Instructions .ROUTE .COMPLEX Rx Instructions: intravenous every 2 weeks nitroglycerin [Nitrostat] 0.4 mg tablet, sublingual 0.4 mg sublingual Q5M Rx Instructions: do not exceed 3 doses per episode promethazine 25 mg tablet 25 mg PO Q4H PRN (Reason: nausea and vomiting) Venofer Rx Instructions: 50 mg one time a week. cefepime in dextrose 5 % 1 gram/50 mL piggyback 1 g IV .as directed Rx Instructions: Dose with dialysis sessions. 1gm on Tue, 2gm on , 1gm on , 2gm on Tuesday. Stop date 01/30/24. Dx: MSSA endocarditis. Weekly bmp and cbc. Fax to [phone]. aspirin 81 mg capsule 81 mg PO DAILY Qty: 30 1RF Primary Care Provider: Raúl Eric Referrals: Raúl Eric MD [Primary Care Provider] - Disposition Disposition: Acute Care Hospital Discharge Location: [facility] Discharge Date/Time: 02/13/24 20:05
[2024-02-13 17:52] LABS: Anion Gap 6 (5-15); BUN 39 mg/dL (7-18); BUN/Creat Ratio 9.3 RATIO (10-20); Calcium,Total 8.5 mg/dL (8.5-10.1); Chloride 102 mmol/L (98-107); EST Glomerular Filtration Rate 12 mL/min (>60); Est Glom Filt Rate - Afr Amer 14 mL/min (>60); Estimated Creatinine Clearance 15.74 ml/min; Glucose 182 mg/dL (74-106); Potassium 4.1 mmol/L (3.5-5.1); Sodium Level 138 mmol/L (136-145)
--- NOTE | 2024-02-13 18:22 | CT_ITS ---
EXAM: CT CERVICAL SPINE WITHOUT INTRAVENOUS CONTRAST CLINICAL INDICATION: fall TECHNIQUE: Helically acquired images were obtained of the cervical spine without intravenous contrast. 2D reformatted images were reviewed. This CT exam was performed using one or more of the following dose reduction techniques: automated exposure control, adjustment of the mA and/or kV according to patient size, and/or use of iterative reconstruction technique. COMPARISON: No relevant prior studies available. FINDINGS: VERTEBRAE: Unremarkable. No fracture. No traumatic subluxation. No discrete lytic or blastic abnormality. Normal alignment. Normal craniocervical junction and cervicothoracic junction. DISCS/SPINAL CANAL/NEURAL FORAMINA: There is disc space narrowing C5-6 and C6-7. SOFT TISSUES: Unremarkable. No prevertebral soft tissue swelling. LYMPH NODES: Unremarkable. No cervical adenopathy. LUNG APICES: Unremarkable as visualized. Clear. CT/Spine Cervical without Contras IMPRESSION: 1. No acute osseous abnormalities. 2. Degenerative changes with disc space narrowing. Electronically Signed: Manish Beck MD at 19:19 EDT ,
[2024-02-13 18:28] VITALS: BP 175/92; PULSE 71; RESP 16; O2SAT 97
[2024-02-13] MEDS: Labetalol (Prefilled) 20 MG/4 ML IV (18:43)
--- NOTE | 2024-02-13 18:49 | ED.RN ---
ATTEMPTED TO CALL DAUGHTER MARIXA PER PT REQUEST TO LET HER KNOW WHAT IS GOING ON. NO ANSWER AND VOICEBOX NOT SETUP TO LEAVE MESSAGE TO CALL BACK/
[2024-02-13 18:52] VITALS: BP 155/83; PULSE 70; RESP 20; O2SAT 99
--- NOTE | 2024-02-13 19:01 | ED.RN ---
AURELIO LAINEZ CALLED. PT LIVES WITH HER. UPDATED HER ABOUT RESULTS AND TRANSFER. PER PT REQUEST
--- NOTE | 2024-02-13 19:02 | ED.RN ---
DR BONE PT BP DECREASED FROM 190'S TO 150'S WITH ONE DOSE OF LABETOLOL AND VERBAL ORDER TO HOLD FOR ABOUT 30 MIN AND RECHECK BEFORE GIVING ANOTHER,.
[2024-02-13 19:22] VITALS: BP 153/64; PULSE 71; RESP 18; TEMP 36.6; O2SAT 94
[2024-02-13 19:27] VITALS: BP 153/64; PULSE 73; RESP 16; O2SAT 97
== END 2024-02-13 20:05 | disposition short-term general hospital (02) ==
LOC: ED 17:33
PROVIDERS: Nurse Practitioner; Emergency Provider Emergency Medicine; PCP Family Medicine; Visit Provider Emergency Medicine
DX: R93.0 Abnormal findings on diagnostic imaging of skull and head, not elsewhere classified (principal); N18.6 End stage renal disease; I12.0 Hypertensive chronic kidney disease with stage 5 chronic kidney disease or end stage renal disease; E11.22 Type 2 diabetes mellitus with diabetic chronic kidney disease; E11.42 Type 2 diabetes mellitus with diabetic polyneuropathy; Z79.4 Long term (current) use of insulin; R11.2 Nausea with vomiting, unspecified; R53.1 Weakness; G89.29 Other chronic pain; I25.10 Atherosclerotic heart disease of native coronary artery without angina pectoris; Z79.899 Other long term (current) drug therapy; Z86.73 Personal history of transient ischemic attack (TIA), and cerebral infarction without residual deficits; Z95.5 Presence of coronary angioplasty implant and graft
CPT/HCPCS: 70450; 72125; 80048; 85025; 96374; 96375; 99284; A4216; J2405

== ENCOUNTER 2024-02-29 00:02 | Emergency (ER) | payer MEDICARE, MEDICAID, SELFPAY ==
[2018-09-21 13:23] VITALS: BMI 29.3
[2024-02-29 00:04] VITALS: BP 170/78; PULSE 85; RESP 16; TEMP 36.1; O2SAT 100; BMI 26.6
[2024-02-29 00:05] VITALS: BMI 29.0
--- NOTE | 2024-02-29 01:47 | CT_ITS ---
INDICATION: fall/trauma EXAMINATION: CT BRAIN - CT Head or Brain W/O Contrast Injection TECHNIQUE: Multiple axial images were obtained of the head without intravenous contrast. A radiation dose optimization technique was used for this scan. IV Contrast dosage and agent: None. COMPARISON: February 13, 2024 CT head. December 22 2023 MRI brain FINDINGS: BRAIN PARENCHYMA: Unchanged right frontoparietal and right occipital encephalomalacia from prior infarct. Hyperdense laminar necrosis along the right frontoparietal junction is unchanged from prior exam.No intra- or extra-axial hemorrhage. No evidence of acute infarct. No intracranial mass or mass effect. Mild periventricular and subcortical white matter hypodense chronic small vessel white matter ischemic change. There is preservation of the mauro/white matter interface. Posterior fossa structures are unremarkable. CSF SPACES: Cerebral volume appropriate for age. No hydrocephalus. Basal cisterns are patent. CALVARIUM, SKULL BASE, PARANASAL SINUSES AND MASTOID AIR CELLS: Right maxillary subcutaneous soft tissue hematoma spanning approximately 1.4 cm. Mild scattered paranasal sinus mucoperiosteal thickening. Mastoid air cells are clear. ORBITS: Both globes, extraocular muscles, optic nerves and retrobulbar fat appear unremarkable. ASPECTS Score for Acute Strokes: 10 CT/Brain/Head without Contrast IMPRESSION: No CT evidence of acute intracranial hemorrhage or injury. Right maxillary and infraorbital subcutaneous soft tissue hematoma. No acute osseous finding. Unchanged sequela of prior right frontal parietal and occipital infarcts with unchanged hyperdense right frontoparietal lamina necrosis. Moderate senescent changes compatible with age. Electronically Signed: Landen Ladd MD at 2:42 EDT ,
--- NOTE | 2024-02-29 01:47 | CT_ITS ---
INDICATION: fall/trauma EXAMINATION: CT FACIAL BONES - CT Maxillofacial W/O Contrast Injection TECHNIQUE: Helically acquired images were obtained of the facial bones. A radiation dose optimization technique was used for this scan. IV Contrast dosage and agent: None. COMPARISON: CT head February 29, 2024 and February 13, 2024. FINDINGS: SOFT TISSUES: Right anterior maxillary 1.7 cm subcutaneous soft tissue hematoma. No subcutaneous emphysema. No radiodense soft tissue foreign body. VISUALIZED PARANASAL SINUSES: Scattered mild paranasal sinus mucoperiosteal thickening. Left diann bullosa. Congenital rightward directed osseous nasal septal deviation. VISUALIZED MASTOID AIR CELLS: Clear. FACIAL BONES, MANDIBLE AND TMJs: Slight buckling of the right posterior nasal bone and left mid nasal bone, axial image 40. No displaced facial bone fracture. No lytic or blastic abnormality. VISUALIZED DENTITION: No periodontal osseous erosion. ORBITAL CONTENTS: Both globes, extraocular muscles and retrobulbar fat appear unremarkable. CT/Sinus/Facial Bone IMPRESSION: Right maxillary subcutaneous soft tissue hematoma without evidence of underlying maxillary fracture. Slight buckle fractures of the bilateral nasal bone Mild scattered sinus disease with rightward directed osseous nasal septum and left diann bullosa. Electronically Signed: Landen Ladd MD at 3:23 EDT ,
--- NOTE | 2024-02-29 01:48 | EDS_ITS ---
HPI History of Present Illness Chief Complaint: Headache Informant: patient Onset/Context/Timing Onset: Yesterday Context: Gradual Timing: Continuous Current Severity: Moderate Maximum Severity: Moderate Narrative Narrative: 58-year-old female states she excellently fell out of bed 2 days ago, injuring her face/head. She was having pain, but she did not have a headache. She went to dialysis yesterday, and afterwards started getting headache and it has progressively gotten worse. Nausea but no vomiting. She states her right eye is a little blurry but no vision loss and no eye pain. No double vision. No otorrhea. She states at 1 point she thought her low back pain was a little worse than usual since the fall but it has waxed and waned. She denies any new neurologic symptoms such as bowel or bladder dysfunction. [facility] Medical History Carotid artery stenosis MSSA bacteremia Chronic anemia ESRD on hemodialysis Osteomyelitis End stage renal disease Anemia in chronic illness Type 2 diabetes mellitus Foot osteomyelitis, left Chronic renal disease, stage 4, severely decreased glomerular filtration rate (GFR) between 15-29 mL/min/1.73 square meter Acute on chronic anemia Chronic ulcer of right foot with necrosis of bone Chronic kidney disease, stage 4 (severe) Diabetes mellitus with diabetic polyneuropathy CRF (chronic renal failure) Diabetic foot ulcers Cellulitis of both lower extremities Chronic kidney disease, stage 3b Osteomyelitis of metatarsal Charcot's joint, right ankle and foot Charcot's joint, left ankle and foot Cellulitis Acute lumbar radiculopathy Essential hypertension Adult failure to thrive Type 2 diabetes mellitus with diabetic polyneuropathy Elevated troponin COVID-19 (08/28/21) Chronic ulcer of right leg with fat layer exposed Ulcer of left foot with fat layer exposed Chronic ulcer of right foot with fat layer exposed Hyperparathyroidism, secondary renal Iron deficiency anemia Anemia due to chronic illness Stage 4 chronic kidney disease Bilateral edema of lower extremity Chronic foot pain Chronic ulcer of right foot with necrosis of muscle Non-pressure chronic 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 layer exposed Debility Charcot's joint of right foot Diabetes Non-smoker Myocardial infarct Hypertension TIA (transient ischemic attack) Amputation foot, bilat Non-pressure chronic ulcer of other part of left foot with fat layer exposed Type 2 diabetes mellitus with diabetic polyneuropathy 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 Ulcer of left foot with necrosis of muscle Chronic renal insufficiency Ulcer of left foot with muscle involvement without evidence of necrosis Anxiety and depression Diabetic infection of left foot Delayed wound healing Non-compliance Osteomyelitis of left foot Essential (primary) hypertension Diabetic polyneuropathy Ischemic cardiomyopathy Normocytic anemia Obesity (BMI 30.0-34.9) Type 2 diabetes mellitus with diabetic polyneuropathy Acquired varus deformity of left foot Acquired varus deformity of right foot Chronic ulcer of left foot with fat layer exposed Ulcer of right lower extremity with fat layer exposed Atherosclerosis of [place] coronary artery of [place] heart without angina pectoris Hemoglobin A1c greater than 9.0% Diabetic ulcer of right ankle NSTEMI (non-ST elevated myocardial infarction) (09/20/18) GERD (gastroesophageal reflux disease) HLD (hyperlipidemia) Back pain, chronic Diabetic foot ulcer associated with type 2 diabetes mellitus RLS (restless legs syndrome) Home Medications ?Medication ?Instructions ?Recorded ?Last Taken ?Type paroxetine HCl 20 mg tablet 20 mg PO DAILY DEPRESSION 07/07/21 04/07/22 History bupropion HCl 150 mg 24 hr tablet, 150 mg PO DAILY mood 02/04/22 04/07/22 Histor y extended release sennosides 8.6 mg-docusate sodium 2 tab PO BID PRN PRN Constipation 04/24/22 Unknown Rx 50 mg tablet (Stool #0 tabs Softener-Stimulant Laxative) ascorbic acid (vitamin C) 500 mg 500 mg PO BID supplement 05/05/22 Unknown History tablet (Vitamin C) clopidogrel 75 mg tablet 75 mg PO DAILY prevent stroke 07/19/22 Unknown History ferrous sulfate 325 mg (65 mg 325 mg PO .three times a week 07/19/22 Unknown History iron) tablet anemia pantoprazole 40 mg tablet,delayed 40 mg PO BIDCM GERD 07/19/22 Unknown History release insulin glargine-yfgn 100 unit/mL 5 unit (0.05 mL) subcut QHS blood 07/21/22 Unknown Rx (3 mL) subcutaneous pen sugar #15 mL insulin lispro 100 unit/mL See Protocol subcut TIDAC #0 mL 07/21/22 Unknown Rx subcutaneous pen (Humalog KwikPen (U-100) Insulin) cyclobenzaprine 5 mg tablet 5 mg PO TID PRN muscle spasm #21 11/26/23 Unknown Rx tabs gabapentin 100 mg capsule 100 mg PO .COMPLEX PRN pain 11/26/23 Unknown History Mircera See Rx Instructions .Route 12/16/23 Unknown History .COMPLEX dialysis Venofer iron 12/16/23 Unknown History acetaminophen 325 mg capsule 325 mg PO Q4H PRN fever or pain 12/16/23 Unknown History amlodipine 5 mg tablet 5 mg PO DAILY bp 12/16/23 Unknown History antacid extra assorted fruit 750 mg PO .every 4 hours PRN tums 12/16/23 Unknown History tablets atorvastatin 20 mg tablet 20 mg PO DAILY cholestrol 12/16/23 Unknown History calcitriol 0.5 mcg capsule 0.5 mcg PO .COMPLEX on dialysis 12/16/23 Unknown History calcium acetate(phosphat bind) 667 676 mg PO TID is on dialysis 12/16/23 Unknown History mg capsule carvedilol 12.5 mg tablet 12.5 mg PO BID heart and bp 12/16/23 Unknown History cloNIDine See Rx Instructions .Route 12/16/23 Unknown History .COMPLEX dialysis diphenhydramine 25 mg IV itching 12/16/23 Unknown History folic acid 800 mcg tablet 0.8 mg PO DAILY supplement 12/16/23 Unknown History hydralazine 25 mg tablet 25 mg PO TID bp 12/16/23 Unknown History insulin aspart U-100 6 unit subcut TID blood glucose 12/16/23 Unknown History insulin aspart U-100 100 unit/mL subcut 12/16/23 Unknown History (3 mL) subcutaneous pen insulin glargine 100 unit/mL (3 20 unit subcut DAILY blood glucose 12/16/23 Unknown History mL) subcutaneous pen (Lantus Solostar U-100 Insulin) isosorbide dinitrate 10 mg tablet 20 mg PO TID bp and heart 12/16/23 Unknown History levothyroxine 25 mcg tablet 25 mcg PO DAILY thyroid 12/16/23 Unknown History lidocaine-silicone, adhesive topical pain 12/16/23 Unknown History loperamide 2 mg capsule 2 mg PO Q4H PRN loose stool 12/16/23 Unknown History (Anti-Diarrheal (loperamide)) melatonin 5 mg capsule 5 mg PO .bedtime sleep 12/16/23 Unknown History nitroglycerin 0.4 mg sublingual 0.4 mg sublingual Q5M chest pain 12/16/23 Unknown History tablet (Nitrostat) olanzapine 5 mg tablet 5 mg PO QHS sleep 12/16/23 Unknown History ondansetron 4 mg disintegrating 4 mg PO DAILY PRN nausea and 12/16/23 Unknown History tablet vomiting pramipexole dihydrochloride 1.5 mg PO BID unknown 12/16/23 Unknown History promethazine 25 mg tablet 25 mg PO Q4H PRN nausea and 12/16/23 Unknown History vomiting aspirin 81 mg capsule 81 mg PO DAILY #30 caps 12/26/23 Unknown Rx cefepime 1 gram/50 mL in dextrose 1 g IV .as directed 12/26/23 Unknown Rx 5 % intravenous piggyback cephalexin 500 mg capsule 500 mg PO Q8H 7 days #21 caps 02/07/24 Unknown Rx sulfamethoxazole 800 1 tab PO BID 7 days #14 tabs 02/07/24 Unknown Rx mg-trimethoprim 160 mg tablet (Bactrim DS) Allergy/AdvReac Type Severity Reaction Status Date / Time Penicillins Allergy swelling Verified 02/29/24 00:03 in throat vancomycin Allergy Itching Verified 02/29/24 00:03 metronidazole AdvReac Nausea Verified 02/29/24 00:03 oxycodone (From OxyContin) AdvReac Shortness Verified 02/29/24 00:03 of breath Family History Mother Diabetes CVA (cerebral vascular accident) Brother CAD (coronary artery disease) CABG X 3 Cancer testicular Diabetes Brother CAD (coronary artery disease) CABG X3 Diabetes Brother CAD (coronary artery disease) Stents Diabetes Sister CAD (coronary artery disease) CABG x 3 CVA (cerebral vascular accident) Diabetes Surgical History History of bilateral carpal tunnel release History of History of coronary artery stent placement (12/31/20) History of foot surgery History of rotator cuff surgery Social History household members: none number of children: 2 current occupational status: disabled Smoking Status: Never smoker alcohol intake: never substance use type: does not use caffeine: Yes Type: carbonated beverages Number of servings: 2 ROS ROS ED Eyes Eyes: Reports blurry vision right ENT ENT ED: Reports as per HPI and facial pain; Denies ear pain or epistaxis Cardiovascular Cardiovascular: Denies chest pain Gastrointestinal Gastrointestinal: Denies abdominal pain Musculoskeletal Musculoskeletal: Reports back pain; Denies neck pain Neurologic Neurologic: Reports headache(s); Denies paresthesias or weakness EXAM Physical Exam Const Vital Signs: 02/29/24 00:04 Temperature 97 F L Temperature Source Temporal Pulse Rate 85 Respiratory Rate 16 Blood Pressure 170/78 H Blood Pressure Mean 108 Pulse Ox 100 Positive well nourished and well developed General Appearance ED: well developed and NAD HEENT Reports moist mucous membranes HEENT Narrative: Right periorbital ecchymosis with ecchymosis down to the right maxillary area as well. There is no evidence of trauma anywhere else in the face including the nose but she is very tender there. No deformities, swelling, or evidence of recent epistaxis. Zygomatic arches are nontender. The right maxilla is very tender, it feels like there may be a hematoma there but no instability or crepitance. Superior orbital brim is nontender. There is no enophthalmos or proptosis. normocephalic and trauma Eyes PERRL and EOMs intact bilaterally Eyes Narrative: Both globes appear atraumatic. Extraocular movements are intact without entrapment or diplopia or significant discomfort. No hyphema. Neck full ROM, no lymphadenopathy and supple General: Negative for tenderness Resp normal respiratory effort Back/Spine no CVA tenderness Back/Spine Narrative: Paraspinal tenderness bilateral lumbar, able to sit up without any discomfort. General Back: other FROM Cervical Spine: Negative for cervical spine tenderness Thoracic Spine / Upper Back: Negative for thoracic spinal tenderness Lumbar Spine / Lower Back: Negative for lumbar spinal tenderness Extremity normal to inspection General Extremety ED: Negative for edema, pulses abnormal or tenderness General Extremity: Negative for edema or pulses abnormal Neuro oriented x3, CN's II-XII intact bilaterally and no sensory deficits noted Sarona Coma Scale: document GCS findings Spontaneous Obeys Commands Oriented 15 Sensorium / Orientation: awake and alert Motor Exam: strength 5/5 throughout Skin no rashes or lesions noted and no wounds MDM MDM MDM Narrative Medical decision making narrative: Given the patient has a history of a brain hemorrhage and had heparin during dialysis yesterday, then developed a headache, I think a CT of the brain is indicated in addition to a CT of the face given her severe tenderness in multiple areas of the midface. I reviewed the CT images of the brain, I agree with the images and the report, it is negative for anything acute, just soft tissue swelling. With facial CT, there is slight buckle fracture of the nasal bones but no complex facial fracture, I reviewed the images and the report which I agree with. Patient reassured and discharged home in stable condition given appropriate instructions. Radiography Diagnostic Testing: Clinical Impression(s) from Imaging Studies Brain CT 02/29/24 01:47 IMPRESSION: No CT evidence of acute intracranial hemorrhage or injury. Right maxillary and infraorbital subcutaneous soft tissue hematoma. No acute osseous finding. Unchanged sequela of prior right frontal parietal and occipital infarcts with unchanged hyperdense right frontoparietal lamina necrosis. Moderate senescent changes compatible with age. Electronically Signed: Landen Ladd MD at 2:42 EDT , Facial/Sinus 02/29/24 01:47 IMPRESSION: Right maxillary subcutaneous soft tissue hematoma without evidence of underlying maxillary fracture. Slight buckle fractures of the bilateral nasal bone Mild scattered sinus disease with rightward directed osseous nasal septum and left diann bullosa. Electronically Signed: Landen Ladd MD at 3:23 EDT , Discharge Plan Triage Chief Complaint: Headache ED Provider: Shayne Castro Dx/Rx/DC Orders Clinical Impression: Contusion of face, Closed head injury without loss of consciousness, Accidental fall from bed, Closed fracture nasal bone Instructions: ED Facial Contusion, ED Nose Fracture, with X-Ray Prescriptions: No Action paroxetine HCl 20 mg tablet 20 mg PO DAILY Patient Comments: TAKE 1 TABLET BY MOUTH EVERY DAY IN THE EVENING bupropion HCl 150 mg tablet extended release 24 hr 150 mg PO DAILY Patient Comments: TAKE 1 TABLET BY MOUTH EVERY DAY sennosides-docusate sodium [Stool Softener-Stimulant Laxat] 8.6-50 mg Tablet 2 tab PO BID PRN PRN (Reason: Constipation) Qty: 0 0RF ascorbic acid (vitamin C) [Vitamin C] 500 mg Tablet 500 mg PO BID clopidogrel 75 mg tablet 75 mg PO DAILY pantoprazole 40 mg tablet,delayed release (DR/EC) 40 mg PO BIDCM ferrous sulfate 325 mg (65 mg iron) tablet 325 mg PO .three times a week Patient Comments: takes three times a week, on Tuesday, and Tuesday insulin lispro [Humalog KwikPen Insulin] 100 unit/mL Insulin Pen See Protocol subcut TIDAC Qty: 0 0RF Protocol: 1. Sliding Scale Insulin Low Dosing Condition: 150-224 mg/dl = 1 unit Condition: 225-299 mg/dl = 2 units Condition: 300-374 mg/dl = 3 units Condition: 375-499 mg/dl = 4 units Condition: Greater than 449 call physician Protocol Text: - Use for Total Daily Dose of Insulin 15-27 units - Thin, elderly, renal patients LOW DOSING ALGORITHM insulin glargine-yfgn 100 unit/mL (3 mL) insulin pen 5 unit subcut QHS Qty: 15 0RF Rx Instructions: Hold if glucose less than 130 mg/dl gabapentin 100 mg capsule 100 mg PO .COMPLEX PRN (Reason: pain) Rx Instructions: 100 mg orally 3 times a week Tuesday, Tuesday and Tuesday cyclobenzaprine 5 mg tablet 5 mg PO TID PRN (Reason: muscle spasm) Qty: 21 0RF cephalexin 500 mg capsule 500 mg PO Q8H 7 Days Qty: 21 0RF sulfamethoxazole-trimethoprim [Bactrim DS] 800-160 mg tablet 1 tab PO BID 7 Days Qty: 14 0RF atorvastatin 20 mg tablet 20 mg PO DAILY Patient Comments: TAKE 1 TABLET BY MOUTH EVERY DAY calcium acetate(phosphat bind) 667 mg capsule 676 mg PO TID Patient Comments: TAKE 1 CAPSULE BY MOUTH THREE TIMES A DAY WITH FOOD folic acid 800 mcg tablet 0.8 mg PO DAILY Patient Comments: TAKE 1 TABLET BY MOUTH EVERY DAY levothyroxine 25 mcg tablet 25 mcg PO DAILY Patient Comments: TAKE 1 TABLET BY MOUTH EVERY DAY BEFORE BREAKFAST insulin aspart U-100 100 unit/mL (3 mL) insulin pen SUBCUT Patient Comments: PLEASE SEE ATTACHED FOR DETAILED DIRECTIONS olanzapine 5 mg tablet 5 mg PO QHS Patient Comments: TAKE 1 TABLET BY MOUTH EVERYDAY AT BEDTIME amlodipine 5 mg tablet 5 mg PO DAILY carvedilol 12.5 mg tablet 12.5 mg PO BID Rx Instructions: must administer with a meal/food hydralazine 25 mg tablet 25 mg PO TID insulin glargine [Lantus Solostar U-100 Insulin] 100 unit/mL (3 mL) insulin pen 20 unit subcut DAILY lidocaine-silicone, adhesive topical Patient Comments: 1 patch daily melatonin 5 mg capsule 5 mg PO .bedtime insulin aspart U-100 [Novolog FlexPen U-100 Insulin] 6 unit subcut TID Patient Comments: give with meals ondansetron 4 mg tablet,disintegrating 4 mg PO DAILY PRN (Reason: nausea and vomiting) pramipexole dihydrochloride 1.5 mg PO BID isosorbide dinitrate 10 mg Tablet 20 mg PO TID acetaminophen 325 mg capsule 325 mg PO Q4H PRN (Reason: fever or pain) antacid extra assorted fruit tablets 750 mg PO .every 4 hours PRN (Reason: tums) calcitriol 0.5 mcg capsule 0.5 mcg PO .COMPLEX Rx Instructions: 0.5 mcg orally three times a week; cloNIDine See Rx Instructions .ROUTE .COMPLEX Rx Instructions: 0.1mg every 4 hours as needed diphenhydramine 25 mg IV Rx Instructions: every 30 minutes as needed. loperamide [Anti-Diarrheal (loperamide)] 2 mg capsule 2 mg PO Q4H PRN (Reason: loose stool) Rx Instructions: administer after each loose stool until symptoms controlled; do not exceed 8 mg per 24 hrs Mircera See Rx Instructions .ROUTE .COMPLEX Rx Instructions: intravenous every 2 weeks nitroglycerin [Nitrostat] 0.4 mg tablet, sublingual 0.4 mg sublingual Q5M Rx Instructions: do not exceed 3 doses per episode promethazine 25 mg tablet 25 mg PO Q4H PRN (Reason: nausea and vomiting) Venofer Rx Instructions: 50 mg one time a week. cefepime in dextrose 5 % 1 gram/50 mL piggyback 1 g IV .as directed Rx Instructions: Dose with dialysis sessions. 1gm on Mon, 2gm on , 1gm on , 2gm on Tuesday. Stop date 01/30/24. Dx: LIUA endocarditis. Weekly bmp and cbc. Fax to [phone]. aspirin 81 mg capsule 81 mg PO DAILY Qty: 30 1RF Primary Care Provider: Raúl Eric Referrals: Raúl Eric MD [Primary Care Provider] - As Needed Print Language: Armenian Disposition Disposition: Home, Self Care
--- NOTE | 2024-02-29 04:02 | ED.RN ---
I attempted to call Trisha for patient d/c and ride home, no answer at this time. The voicemail is not set up. An incorrect number is listed for Yamel, unable to reach her at this time.
[2024-02-29 04:03] VITALS: BP 158/74; PULSE 75; RESP 16; O2SAT 99
[2024-02-29 05:39] VITALS: BP 145/84; PULSE 72; RESP 16; TEMP 36.6; O2SAT 99
== END 2024-02-29 05:40 | disposition home or self-care (01) ==
PROVIDERS: Emergency Provider Emergency Medicine; PCP Family Medicine; Visit Provider Emergency Medicine
DX: S02.2XXA Fracture of nasal bones, initial encounter for closed fracture (principal); N18.6 End stage renal disease; I11.0 Hypertensive heart disease with heart failure; E11.22 Type 2 diabetes mellitus with diabetic chronic kidney disease; E11.42 Type 2 diabetes mellitus with diabetic polyneuropathy; Z79.4 Long term (current) use of insulin; W06.XXXA Fall from bed, initial encounter; H53.8 Other visual disturbances; M54.50 Low back pain, unspecified; Z99.2 Dependence on renal dialysis; I25.2 Old myocardial infarction; Z79.82 Long term (current) use of aspirin; Z79.02 Long term (current) use of antithrombotics/antiplatelets; Z79.890 Hormone replacement therapy; Z79.899 Other long term (current) drug therapy; Z86.73 Personal history of transient ischemic attack (TIA), and cerebral infarction without residual deficits
CPT/HCPCS: 70450; 70486; 99282

== ENCOUNTER 2024-03-17 05:21 | Emergency (ER) | payer MEDICARE, MEDICAID, SELFPAY ==
[2018-09-21 13:23] VITALS: BMI 29.3
[2024-03-17 05:23] VITALS: BP 166/78; PULSE 84; RESP 16; TEMP 36.9; O2SAT 98; BMI 30.1
--- NOTE | 2024-03-17 05:36 | ED.VIS.LOWEX ---
HPI History of Present Illness Chief Complaint: Laceration Informant: patient and EMS Narrative Narrative: 58-year-old female presenting to the emergency room with chief complaint of bleeding from the left foot. Patient states she has neuropathy in her feet and when she looked on her feet this evening noticed a lot of blood coming from the bottoms of her feet. She states that she has been waiting for some new shoes to come. She sees Dr. Guadarrama for podiatry. EMS concern for possible piece of broken glass in the bottom of her foot. She has chronic wounds at the base of the fifth metatarsal bilaterally. She states that a couple weeks ago she was at [facility] with a brain bleed. She states they stuck her growing with a needle and since then has had pain in her leg but up until couple days ago she did not have pain in the right foot. Now she states she has pain in the right foot. She denies any known trauma. Tetanus Immunization: 5-10 years [facility] Medical History Carotid artery stenosis MSSA bacteremia Chronic anemia ESRD on hemodialysis Osteomyelitis End stage renal disease Anemia in chronic illness Type 2 diabetes mellitus Foot osteomyelitis, left Chronic renal disease, stage 4, severely decreased glomerular filtration rate (GFR) between 15-29 mL/min/1.73 square meter Acute on chronic anemia Chronic ulcer of right foot with necrosis of bone Chronic kidney disease, stage 4 (severe) Diabetes mellitus with diabetic polyneuropathy CRF (chronic renal failure) Diabetic foot ulcers Cellulitis of both lower extremities Chronic kidney disease, stage 3b Osteomyelitis of metatarsal Charcot's joint, right ankle and foot Charcot's joint, left ankle and foot Cellulitis Acute lumbar radiculopathy Essential hypertension Adult failure to thrive Type 2 diabetes mellitus with diabetic polyneuropathy Elevated troponin COVID-19 (08/28/21) Chronic ulcer of right leg with fat layer exposed Ulcer of left foot with fat layer exposed Chronic ulcer of right foot with fat layer exposed Hyperparathyroidism, secondary renal Iron deficiency anemia Anemia due to chronic illness Stage 4 chronic kidney disease Bilateral edema of lower extremity Chronic foot pain Chronic ulcer of right foot with necrosis of muscle Non-pressure chronic 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 layer exposed Debility Charcot's joint of right foot Diabetes Non-smoker Myocardial infarct Hypertension TIA (transient ischemic attack) Amputation foot, bilat Non-pressure chronic ulcer of other part of left foot with fat layer exposed Type 2 diabetes mellitus with diabetic polyneuropathy 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 Ulcer of left foot with necrosis of muscle Chronic renal insufficiency Ulcer of left foot with muscle involvement without evidence of necrosis Anxiety and depression Diabetic infection of left foot Delayed wound healing Non-compliance Osteomyelitis of left foot Essential (primary) hypertension Diabetic polyneuropathy Ischemic cardiomyopathy Normocytic anemia Obesity (BMI 30.0-34.9) Type 2 diabetes mellitus with diabetic polyneuropathy Acquired varus deformity of left foot Acquired varus deformity of right foot Chronic ulcer of left foot with fat layer exposed Ulcer of right lower extremity with fat layer exposed Atherosclerosis of [place] coronary artery of [place] heart without angina pectoris Hemoglobin A1c greater than 9.0% Diabetic ulcer of right ankle NSTEMI (non-ST elevated myocardial infarction) (09/20/18) GERD (gastroesophageal reflux disease) HLD (hyperlipidemia) Back pain, chronic Diabetic foot ulcer associated with type 2 diabetes mellitus RLS (restless legs syndrome) Home Medications ?Medication ?Instructions ?Recorded ?Last Taken ?Type paroxetine HCl 20 mg tablet 20 mg PO DAILY DEPRESSION 07/07/21 04/07/22 History bupropion HCl 150 mg 24 hr tablet, 150 mg PO DAILY mood 02/04/22 04/07/22 History extended release sennosides 8.6 mg-docusate sodium 2 tab PO BID PRN PRN Constipation 04/24/22 Unknown Rx 50 mg tablet (Stool #0 tabs Softener-Stimulant Laxative) ascorbic acid (vitamin C) 500 mg 500 mg PO BID supplement 05/05/22 Unknown History tablet (Vitamin C) clopidogrel 75 mg tablet 75 mg PO DAILY prevent stroke 07/19/22 Unknown History ferrous sulfate 325 mg (65 mg 325 mg PO .three times a week 07/19/22 Unknown History iron) tablet anemia pantoprazole 40 mg tablet,delayed 40 mg PO BIDCM GERD 07/19/22 Unknown History release insulin glargine-yfgn 100 unit/mL 5 unit (0.05 mL) subcut QHS blood 07/21/22 Unknown Rx (3 mL) subcutaneous pen sugar #15 mL insulin lispro 100 unit/mL See Protocol subcut TIDAC #0 mL 07/21/22 Unknown Rx subcutaneous pen (Humalog KwikPen (U-100) Insulin) cyclobenzaprine 5 mg tablet 5 mg PO TID PRN muscle spasm #21 11/26/23 Unknown Rx tabs gabapentin 100 mg capsule 100 mg PO .COMPLEX PRN pain 11/26/23 Unknown History Mircera See Rx Instructions .Route 12/16/23 Unknown History .COMPLEX dialysis Venofer iron 12/16/23 Unknown History acetaminophen 325 mg capsule 325 mg PO Q4H PRN fever or pain 12/16/23 Unknown History amlodipine 5 mg tablet 5 mg PO DAILY bp 12/16/23 Unknown History antacid extra assorted fruit 750 mg PO .every 4 hours PRN tums 12/16/23 Unknown History tablets atorvastatin 20 mg tablet 20 mg PO DAILY cholestrol 12/16/23 Unknown History calcitriol 0.5 mcg capsule 0.5 mcg PO .COMPLEX on dialysis 12/16/23 Unknown History calcium acetate(phosphat bind) 667 676 mg PO TID is on dialysis 12/16/23 Unknown History mg capsule carvedilol 12.5 mg tablet 12.5 mg PO BID heart and bp 12/16/23 Unknown History cloNIDine See Rx Instructions .Route 12/16/23 Unknown History .COMPLEX dialysis diphenhydramine 25 mg IV itching 12/16/23 Unknown History folic acid 800 mcg tablet 0.8 mg PO DAILY supplement 12/16/23 Unknown History hydralazine 25 mg tablet 25 mg PO TID bp 12/16/23 Unknown History insulin aspart U-100 6 unit subcut TID blood glucose 12/16/23 Unknown History insulin aspart U-100 100 unit/mL subcut 12/16/23 Unknown History (3 mL) subcutaneous pen insulin glargine 100 unit/mL (3 20 unit subcut DAILY blood glucose 12/16/23 Unknown History mL) subcutaneous pen (Lantus Solostar U-100 Insulin) isosorbide dinitrate 10 mg tablet 20 mg PO TID bp and heart 12/16/23 Unknown History levothyroxine 25 mcg tablet 25 mcg PO DAILY thyroid 12/16/23 Unknown History lidocaine-silicone, adhesive topical pain 12/16/23 Unknown History loperamide 2 mg capsule 2 mg PO Q4H PRN loose stool 12/16/23 Unknown History (Anti-Diarrheal (loperamide)) melatonin 5 mg capsule 5 mg PO .bedtime sleep 12/16/23 Unknown History nitroglycerin 0.4 mg sublingual 0.4 mg sublingual Q5M chest pain 12/16/23 Unknown History tablet (Nitrostat) olanzapine 5 mg tablet 5 mg PO QHS sleep 12/16/23 Unknown History ondansetron 4 mg disintegrating 4 mg PO DAILY PRN nausea and 12/16/23 Unknown History tablet vomiting pramipexole dihydrochloride 1.5 mg PO BID unknown 12/16/23 Unknown History promethazine 25 mg tablet 25 mg PO Q4H PRN nausea and 12/16/23 Unknown History vomiting aspirin 81 mg capsule 81 mg PO DAILY #30 caps 12/26/23 Unknown Rx cefepime 1 gram/50 mL in dextrose 1 g IV .as directed 12/26/23 Unknown Rx 5 % intravenous piggyback cephalexin 500 mg capsule 500 mg PO Q8H 7 days #21 caps 02/07/24 Unknown Rx sulfamethoxazole 800 1 tab PO BID 7 days #14 tabs 02/07/24 Unknown Rx mg-trimethoprim 160 mg tablet (Bactrim DS) Allergy/AdvReac Type Severity Reaction Status Date / Time Penicillins Allergy swelling Verified 03/17/24 05:22 in throat vancomycin Allergy Itching Verified 03/17/24 05:22 metronidazole AdvReac Nausea Verified 03/17/24 05:22 oxycodone (From OxyContin) AdvReac Shortness Verified 03/17/24 05:22 of breath Family History Mother Diabetes CVA (cerebral vascular accident) Brother CAD (coronary artery disease) CABG X 3 Cancer testicular Diabetes Brother CAD (coronary artery disease) CABG X3 Diabetes Brother CAD (coronary artery disease) Stents Diabetes Sister CAD (coronary artery disease) CABG x 3 CVA (cerebral vascular accident) Diabetes Surgical History History of History of foot surgery History of bilateral carpal tunnel release History of rotator cuff surgery History of coronary artery stent placement (12/31/20) Social History household members: none number of children: 2 current occupational status: disabled Smoking Status: Never smoker alcohol intake: never substance use type: does not use caffeine: Yes Type: carbonated beverages Number of servings: 2 ROS ROS ED Constitutional Constitutional ED: Denies chills, fever(s) or weight loss Eyes Eyes: Denies change in vision or diplopia ENT ENT ED: Denies ear pain, rhinorrhea or sore throat Cardiovascular Cardiovascular: Denies chest pain, orthopnea, palpitations or racing heartbeat Respiratory/Chest Respiratory/Chest: Denies cough, dyspnea or orthopnea Gastrointestinal Gastrointestinal: Denies abdominal pain, diarrhea, nausea or vomiting Genitourinary Genitourinary ED: Denies dysuria, hematuria or urinary frequency Musculoskeletal Musculoskeletal: Denies arthralgias or myalgias Integumentary Reports other Details: See history of present illness ; Denies abscess or rash Neurologic Neurologic: Denies headache(s) or weakness Psychiatric Psychiatric: Denies anxiety, depression, suicidal ideation or suicidal thoughts Endocrine Endocrinology: Denies polydipsia, polyphagia or polyuria Allergic/Immunologic Allergic/Immunologic ED: Denies mouth swelling, tongue swelling or urticaria EXAM Physical Exam Const Vital Signs: 03/17/24 05:23 Temperature 98.4 F Temperature Source Temporal Pulse Rate 84 Respiratory Rate 16 Blood Pressure 166/78 H Blood Pressure Mean 107 Pulse Ox 98 Oxygen Delivery Method Room Air Positive well nourished and well developed General Appearance ED: well developed and NAD HEENT Reports normocephalic, head/scalp atraumatic and moist mucous membranes Eyes PERRL and EOMs intact bilaterally Neck no lymphadenopathy, supple and no JVD Resp normal respiratory effort and clear to auscultation bilaterally Cardio regular rate, regular rhythm and no murmurs GI normal to inspection, nondistended, normoactive bowel sounds and non-tender Palpation: soft Back/Spine no CVA tenderness and normal ROM Extremity normal to inspection General Extremety ED: Negative for edema General Extremity: Negative for edema Neuro oriented x3 and CN's II-XII intact bilaterally Sensorium / Orientation: alert Motor Exam: strength 5/5 throughout Psych mental status grossly normal Mood & Affect: Negative for depressed or tearful Skin no rashes or lesions noted Skin Narrative: Bilaterally the patient has chronic appearing wound the base of the fifth metatarsal on the plantar surface. The left plantar surface appears to have that the thickened skin has been torn away from the wound. This resulted in some bleeding. The tissue is nearly completely avulsed The right foot demonstrates some mild swelling. There is no erythema. It is warm and pink. She states that hurts from the ankle down circumferentially the entire foot MDM MDM MDM Narrative Medical decision making narrative: Differential diagnosis includes but not limited to skin avulsion laceration soft tissue foreign body fracture infection I debrided the tissue that was loosely adhered. Dressed the wound with bacitracin Telfa and Aminah. My independent interpretation of the bilateral foot x-rays is no obvious foreign body. No obvious acute fracture. No subcutaneous air. Soft tissue swelling noted. Patient is sleeping on repeat examination. She tells me that her doctor took her pain medication away from her. She wants to know about the cage in her back.I explained generally what the cages are. Would recommend she follow-up with her surgeon if she needs to know some more specifics as to why they did the surgery. She states that the surgery was a couple years ago. 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 History & Record Review Discussion w/independent historian: Patient Radiography Diagnostic Testing: Clinical Impression(s) from Imaging Studies Foot X-Ray 03/17/24 06:05 IMPRESSION: 1. Healing fracture of the base of the first metatarsal. 2. Diffuse soft tissue swelling. 3. Status post amputation of the fifth ray at the base of the fifth metatarsal. 4. Extensive neuropathic changes involving the midfoot similar to the prior exam. Electronically Signed: Kayden Avitia MD at 6:58 EDT Reading Location ID and State: [address] [place] [address] Tel , Service support , Discharge Plan Triage Chief Complaint: Laceration ED Provider: Gustavo Rivera Dx/Rx/DC Orders Clinical Impression: Avulsion of skin, Acute foot pain Instructions: ED Pain, Acute, Uncertain Cause, ED Skin Tear (Skin Avulsion) Prescriptions: No Action paroxetine HCl 20 mg tablet 20 mg PO DAILY Patient Comments: TAKE 1 TABLET BY MOUTH EVERY DAY IN THE EVENING bupropion HCl 150 mg tablet extended release 24 hr 150 mg PO DAILY Patient Comments: TAKE 1 TABLET BY MOUTH EVERY DAY sennosides-docusate sodium [Stool Softener-Stimulant Laxat] 8.6-50 mg Tablet 2 tab PO BID PRN PRN (Reason: Constipation) Qty: 0 0RF ascorbic acid (vitamin C) [Vitamin C] 500 mg Tablet 500 mg PO BID clopidogrel 75 mg tablet 75 mg PO DAILY pantoprazole 40 mg tablet,delayed release (DR/EC) 40 mg PO BIDCM ferrous sulfate 325 mg (65 mg iron) tablet 325 mg PO .three times a week Patient Comments: takes three times a week, on Tuesday, and Tuesday insulin lispro [Humalog KwikPen Insulin] 100 unit/mL Insulin Pen See Protocol subcut TIDAC Qty: 0 0RF Protocol: 1. Sliding Scale Insulin Low Dosing Condition: 150-224 mg/dl = 1 unit Condition: 225-299 mg/dl = 2 units Condition: 300-374 mg/dl = 3 units Condition: 375-499 mg/dl = 4 units Condition: Greater than 449 call physician Protocol Text: - Use for Total Daily Dose of Insulin 15-27 units - Thin, elderly, renal patients LOW DOSING ALGORITHM insulin glargine-yfgn 100 unit/mL (3 mL) insulin pen 5 unit subcut QHS Qty: 15 0RF Rx Instructions: Hold if glucose less than 130 mg/dl gabapentin 100 mg capsule 100 mg PO .COMPLEX PRN (Reason: pain) Rx Instructions: 100 mg orally 3 times a week Tuesday, Tuesday and Tuesday cyclobenzaprine 5 mg tablet 5 mg PO TID PRN (Reason: muscle spasm) Qty: 21 0RF cephalexin 500 mg capsule 500 mg PO Q8H 7 Days Qty: 21 0RF sulfamethoxazole-trimethoprim [Bactrim DS] 800-160 mg tablet 1 tab PO BID 7 Days Qty: 14 0RF atorvastatin 20 mg tablet 20 mg PO DAILY Patient Comments: TAKE 1 TABLET BY MOUTH EVERY DAY calcium acetate(phosphat bind) 667 mg capsule 676 mg PO TID Patient Comments: TAKE 1 CAPSULE BY MOUTH THREE TIMES A DAY WITH FOOD folic acid 800 mcg tablet 0.8 mg PO DAILY Patient Comments: TAKE 1 TABLET BY MOUTH EVERY DAY levothyroxine 25 mcg tablet 25 mcg PO DAILY Patient Comments: TAKE 1 TABLET BY MOUTH EVERY DAY BEFORE BREAKFAST insulin aspart U-100 100 unit/mL (3 mL) insulin pen SUBCUT Patient Comments: PLEASE SEE ATTACHED FOR DETAILED DIRECTIONS olanzapine 5 mg tablet 5 mg PO QHS Patient Comments: TAKE 1 TABLET BY MOUTH EVERYDAY AT BEDTIME amlodipine 5 mg tablet 5 mg PO DAILY carvedilol 12.5 mg tablet 12.5 mg PO BID Rx Instructions: must administer with a meal/food hydralazine 25 mg tablet 25 mg PO TID insulin glargine [Lantus Solostar U-100 Insulin] 100 unit/mL (3 mL) insulin pen 20 unit subcut DAILY lidocaine-silicone, adhesive topical Patient Comments: 1 patch daily melatonin 5 mg capsule 5 mg PO .bedtime insulin aspart U-100 [Novolog FlexPen U-100 Insulin] 6 unit subcut TID Patient Comments: give with meals ondansetron 4 mg tablet,disintegrating 4 mg PO DAILY PRN (Reason: nausea and vomiting) pramipexole dihydrochloride 1.5 mg PO BID isosorbide dinitrate 10 mg Tablet 20 mg PO TID acetaminophen 325 mg capsule 325 mg PO Q4H PRN (Reason: fever or pain) antacid extra assorted fruit tablets 750 mg PO .every 4 hours PRN (Reason: tums) calcitriol 0.5 mcg capsule 0.5 mcg PO .COMPLEX Rx Instructions: 0.5 mcg orally three times a week; cloNIDine See Rx Instructions .ROUTE .COMPLEX Rx Instructions: 0.1mg every 4 hours as needed diphenhydramine 25 mg IV Rx Instructions: every 30 minutes as needed. loperamide [Anti-Diarrheal (loperamide)] 2 mg capsule 2 mg PO Q4H PRN (Reason: loose stool) Rx Instructions: administer after each loose stool until symptoms controlled; do not exceed 8 mg per 24 hrs Mircera See Rx Instructions .ROUTE .COMPLEX Rx Instructions: intravenous every 2 weeks nitroglycerin [Nitrostat] 0.4 mg tablet, sublingual 0.4 mg sublingual Q5M Rx Instructions: do not exceed 3 doses per episode promethazine 25 mg tablet 25 mg PO Q4H PRN (Reason: nausea and vomiting) Venofer Rx Instructions: 50 mg one time a week. cefepime in dextrose 5 % 1 gram/50 mL piggyback 1 g IV .as directed Rx Instructions: Dose with dialysis sessions. 1gm on Mon, 2gm on , 1gm on , 2gm on Tuesday. Stop date 01/30/24. Dx: MSSA endocarditis. Weekly bmp and cbc. Fax to [phone]. aspirin 81 mg capsule 81 mg PO DAILY Qty: 30 1RF Primary Care Provider: Raúl Eric Referrals: Jefe Guadarrama DPM [Med Staff - Active Staff] - As soon as possible Raúl Eric MD [Primary Care Provider] - Activity Restrictions/Additional Instructions: I would recommend good local wound care by keeping the wound covered. Antibiotic ointment at least once a day. Soap and water is appropriate. Please do not walk around her house barefoot especially with neuropathy. Print Language: [place] Disposition Disposition: Home, Self Care
--- NOTE | 2024-03-17 06:05 | RAD_ITS ---
EXAM: XR RIGHT FOOT COMPLETE, 3 OR MORE VIEWS CLINICAL INDICATION: trauma TECHNIQUE: Frontal, lateral and oblique views of the right foot. COMPARISON: 04/09/2022. FINDINGS: BONES/JOINTS: Healing fracture of the base of the first metatarsal. Status post amputation of the fifth ray at the base of the fifth metatarsal. Extensive neuropathic changes involving the midfoot similar to the prior exam. Preservation of the joint space. No sclerotic or destructive changes observed. SOFT TISSUES: Diffuse soft tissue swelling. No radiopaque foreign body. RAD/Foot min 3 Views IMPRESSION: 1. Healing fracture of the base of the first metatarsal. 2. Diffuse soft tissue swelling. 3. Status post amputation of the fifth ray at the base of the fifth metatarsal. 4. Extensive neuropathic changes involving the midfoot similar to the prior exam. Electronically Signed: Kayden Avitia MD at 6:58 EDT ,
--- NOTE | 2024-03-17 06:05 | RAD_ITS ---
EXAM: XR LEFT FOOT COMPLETE, 3 OR MORE VIEWS CLINICAL INDICATION: trauma TECHNIQUE: Frontal, lateral and oblique views of the left foot. COMPARISON: XR Foot dated 11/16/2023 FINDINGS: BONES/JOINTS: Continued healing of the fractures involving the proximal first metatarsal, distal portion of the second metatarsal and first proximal phalanx. Interval development of articular and periarticular erosions of the distal portion of the fourth metatarsal head. Surgical changes of the fifth metatarsal and amputation of the fifth oh again noted. SOFT TISSUES: Soft tissue swelling of the forefoot. No radiopaque foreign body. RAD/Foot min 3 Views IMPRESSION: 1. Healing fractures of the first and second metatarsals and first proximal phalanx. 2. New erosive changes of the distal aspect of the fourth metatarsal which may be posttraumatic or inflammatory or infectious in etiology. Electronically Signed: Sterling Delcid MD at 11:47 EDT ,
--- NOTE | 2024-03-17 07:35 | ED.RN ---
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 Also attempted to call daughter listed on contact and no voicemail set up.
[2024-03-17 07:37] VITALS: BP 135/74; PULSE 72; RESP 16; TEMP 36.4; O2SAT 96
== END 2024-03-17 07:38 | disposition home or self-care (01) ==
PROVIDERS: Emergency Provider Emergency Medicine; PCP Family Medicine; Visit Provider Emergency Medicine
DX: S91.302A Unspecified open wound, left foot, initial encounter (principal); I12.0 Hypertensive chronic kidney disease with stage 5 chronic kidney disease or end stage renal disease; N18.6 End stage renal disease; E11.22 Type 2 diabetes mellitus with diabetic chronic kidney disease; E11.42 Type 2 diabetes mellitus with diabetic polyneuropathy; Z79.4 Long term (current) use of insulin; M79.671 Pain in right foot; X58.XXXA Exposure to other specified factors, initial encounter; Z99.2 Dependence on renal dialysis; Z79.02 Long term (current) use of antithrombotics/antiplatelets; Z79.82 Long term (current) use of aspirin; Z79.899 Other long term (current) drug therapy
CPT/HCPCS: 99282; 73630

== ENCOUNTER 2024-03-17 21:24 | Emergency (ER) | payer MEDICARE, MEDICAID, SELFPAY ==
[2018-09-21 13:23] VITALS: BMI 29.3
[2024-03-17 21:26] VITALS: BP 163/69; PULSE 91; RESP 18; TEMP 36.6; O2SAT 97; BMI 29.4
--- NOTE | 2024-03-17 22:27 | EDS_ITS ---
HPI History of Present Illness Chief Complaint: Edema Informant: patient Narrative Narrative: Patient is a 58-year-old female with past medical history of end-stage renal disease on dialysis as well as hypertension and type 2 diabetes. She was seen earlier today secondary to left foot pain and discharged home. Patient states that she has dialysis on Tuesday and Tuesday but that she missed Tuesday. She states that today after returning home from her initial evaluation in the ER she noticed that she had increased swelling to her bilateral lower legs and the swelling was uncomfortable. She states that she is concerned she may need emergent dialysis and therefore comes back to the hospital for repeat evaluation [facility] Medical History Carotid artery stenosis MSSA bacteremia Chronic anemia ESRD on hemodialysis Osteomyelitis End stage renal disease Anemia in chronic illness Type 2 diabetes mellitus Foot osteomyelitis, left Chronic renal disease, stage 4, severely decreased glomerular filtration rate (GFR) between 15-29 mL/min/1.73 square meter Acute on chronic anemia Chronic ulcer of right foot with necrosis of bone Chronic kidney disease, stage 4 (severe) Diabetes mellitus with diabetic polyneuropathy CRF (chronic renal failure) Diabetic foot ulcers Cellulitis of both lower extremities Chronic kidney disease, stage 3b Osteomyelitis of metatarsal Charcot's joint, right ankle and foot Charcot's joint, left ankle and foot Cellulitis Acute lumbar radiculopathy Essential hypertension Adult failure to thrive Type 2 diabetes mellitus with diabetic polyneuropathy Elevated troponin COVID-19 (08/28/21) Chronic ulcer of right leg with fat layer exposed Ulcer of left foot with fat layer exposed Chronic ulcer of right foot with fat layer exposed Hyperparathyroidism, secondary renal Iron deficiency anemia Anemia due to chronic illness Stage 4 chronic kidney disease Bilateral edema of lower extremity Chronic foot pain Chronic ulcer of right foot with necrosis of muscle Non-pressure chronic 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 layer exposed Debility Charcot's joint of right foot Diabetes Non-smoker Myocardial infarct Hypertension TIA (transient ischemic attack) Amputation foot, bilat Non-pressure chronic ulcer of other part of left foot with fat layer exposed Type 2 diabetes mellitus with diabetic polyneuropathy 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 Ulcer of left foot with necrosis of muscle Chronic renal insufficiency Ulcer of left foot with muscle involvement without evidence of necrosis Anxiety and depression Diabetic infection of left foot Delayed wound healing Non-compliance Osteomyelitis of left foot Essential (primary) hypertension Diabetic polyneuropathy Ischemic cardiomyopathy Normocytic anemia Obesity (BMI 30.0-34.9) Type 2 diabetes mellitus with diabetic polyneuropathy Acquired varus deformity of left foot Acquired varus deformity of right foot Chronic ulcer of left foot with fat layer exposed Ulcer of right lower extremity with fat layer exposed Atherosclerosis of [place] coronary artery of [place] heart without angina pectoris Hemoglobin A1c greater than 9.0% Diabetic ulcer of right ankle NSTEMI (non-ST elevated myocardial infarction) (09/20/18) GERD (gastroesophageal reflux disease) HLD (hyperlipidemia) Back pain, chronic Diabetic foot ulcer associated with type 2 diabetes mellitus RLS (restless legs syndrome) Home Medications ?Medication ?Instructions ?Recorded ?Last Taken ?Type paroxetine HCl 20 mg tablet 20 mg PO DAILY DEPRESSION 07/07/21 04/07/22 History bupropion HCl 150 mg 24 hr tablet, 150 mg PO DAILY mood 02/04/22 04/07/22 History extended release sennosides 8.6 mg-docusate sodium 2 tab PO BID PRN PRN Constipation 04/24/22 Unknown Rx 50 mg tablet (Stool #0 tabs Softener-Stimulant Laxative) ascorbic acid (vitamin C) 500 mg 500 mg PO BID supplement 05/05/22 Unknown History tablet (Vitamin C) clopidogrel 75 mg tablet 75 mg PO DAILY prevent stroke 07/19/22 Unknown History ferrous sulfate 325 mg (65 mg 325 mg PO .three times a week 07/19/22 Unknown History iron) tablet anemia pantoprazole 40 mg tablet,delayed 40 mg PO BIDCM GERD 07/19/22 Unknown History release insulin glargine-yfgn 100 unit/mL 5 unit (0.05 mL) subcut QHS blood 07/21/22 Unknown Rx (3 mL) subcutaneous pen sugar #15 mL insulin lispro 100 unit/mL See Protocol subcut TIDAC #0 mL 07/21/22 Unknown Rx subcutaneous pen (Humalog KwikPen (U-100) Insulin) cyclobenzaprine 5 mg tablet 5 mg PO TID PRN muscle spasm #21 11/26/23 Unknown Rx tabs gabapentin 100 mg capsule 100 mg PO .COMPLEX PRN pain 11/26/23 Unknown History Mircera See Rx Instructions .Route 12/16/23 Unknown History .COMPLEX dialysis Venofer iron 12/16/23 Unknown History acetaminophen 325 mg capsule 325 mg PO Q4H PRN fever or pain 12/16/23 Unknown History amlodipine 5 mg tablet 5 mg PO DAILY bp 12/16/23 Unknown History antacid extra assorted fruit 750 mg PO .every 4 hours PRN tums 12/16/23 Unknown History tablets atorvastatin 20 mg tablet 20 mg PO DAILY cholestrol 12/16/23 Unknown History calcitriol 0.5 mcg capsule 0.5 mcg PO .COMPLEX on dialysis 12/16/23 Unknown History calcium acetate(phosphat bind) 667 676 mg PO TID is on dialysis 12/16/23 Unknown History mg capsule carvedilol 12.5 mg tablet 12.5 mg PO BID heart and bp 12/16/23 Unknown History cloNIDine See Rx Instructions .Route 12/16/23 Unknown History .COMPLEX dialysis diphenhydramine 25 mg IV itching 12/16/23 Unknown History folic acid 800 mcg tablet 0.8 mg PO DAILY supplement 12/16/23 Unknown History hydralazine 25 mg tablet 25 mg PO TID bp 12/16/23 Unknown History insulin aspart U-100 6 unit subcut TID blood glucose 12/16/23 Unknown History insulin aspart U-100 100 unit/mL subcut 12/16/23 Unknown History (3 mL) subcutaneous pen insulin glargine 100 unit/mL (3 20 unit subcut DAILY blood glucose 12/16/23 Unknown History mL) subcutaneous pen (Lantus Solostar U-100 Insulin) isosorbide dinitrate 10 mg tablet 20 mg PO TID bp and heart 12/16/23 Unknown History levothyroxine 25 mcg tablet 25 mcg PO DAILY thyroid 12/16/23 Unknown History lidocaine-silicone, adhesive topical pain 12/16/23 Unknown History loperamide 2 mg capsule 2 mg PO Q4H PRN loose stool 12/16/23 Unknown History (Anti-Diarrheal (loperamide)) melatonin 5 mg capsule 5 mg PO .bedtime sleep 12/16/23 Unknown History nitroglycerin 0.4 mg sublingual 0.4 mg sublingual Q5M chest pain 12/16/23 Unknown History tablet (Nitrostat) olanzapine 5 mg tablet 5 mg PO QHS sleep 12/16/23 Unknown History ondansetron 4 mg disintegrating 4 mg PO DAILY PRN nausea and 12/16/23 Unknown History tablet vomiting pramipexole dihydrochloride 1.5 mg PO BID unknown 12/16/23 Unknown History promethazine 25 mg tablet 25 mg PO Q4H PRN nausea and 12/16/23 Unknown History vomiting aspirin 81 mg capsule 81 mg PO DAILY #30 caps 12/26/23 Unknown Rx cefepime 1 gram/50 mL in dextrose 1 g IV .as directed 12/26/23 Unknown Rx 5 % intravenous piggyback cephalexin 500 mg capsule 500 mg PO Q8H 7 days #21 caps 02/07/24 Unknown Rx sulfamethoxazole 800 1 tab PO BID 7 days #14 tabs 02/07/24 Unknown Rx mg-trimethoprim 160 mg tablet (Bactrim DS) Allergy/AdvReac Type Severity Reaction Status Date / Time Penicillins Allergy swelling Verified 03/17/24 21:28 in throat vancomycin Allergy Itching Verified 03/17/24 21:28 metronidazole AdvReac Nausea Verified 03/17/24 21:28 oxycodone (From OxyContin) AdvReac Shortness Verified 03/17/24 21:28 of breath Family History Mother Diabetes CVA (cerebral vascular accident) Brother CAD (coronary artery disease) CABG X 3 Cancer testicular Diabetes Brother CAD (coronary artery disease) CABG X3 Diabetes Brother CAD (coronary artery disease) Stents Diabetes Sister CAD (coronary artery disease) CABG x 3 CVA (cerebral vascular accident) Diabetes Surgical History History of History of foot surgery History of bilateral carpal tunnel release History of rotator cuff surgery History of coronary artery stent placement (12/31/20) Social History household members: none number of children: 2 current occupational status: disabled Smoking Status: Never smoker alcohol intake: never substance use type: does not use caffeine: Yes Type: carbonated beverages Number of servings: 2 ROS ROS ED Constitutional Constitutional ED: Denies chills or fever(s) Eyes Eyes: Denies change in vision ENT ENT ED: Denies sore throat Cardiovascular Cardiovascular: Reports other Details: Positive edema ; Denies chest pain Respiratory/Chest Respiratory/Chest: Denies cough or dyspnea Gastrointestinal Gastrointestinal: Denies abdominal pain, diarrhea, nausea or vomiting Genitourinary Genitourinary ED: Denies dysuria Musculoskeletal Musculoskeletal: Reports other Details: Positive bilateral leg pain and left foot pain Integumentary Reports other Details: Positive bilateral foot wounds Neurologic Neurologic: Denies headache(s) Hematologic/Lymphatic Hematologic/Lymphatic: Denies easy bleeding or easy bruising EXAM Physical Exam Const Vital Signs: 03/17/24 21:26 03/17/24 21:48 03/17/24 22:39 Temperature 97.9 F 97.9 F Temperature Source Temporal Pulse Rate 91 84 Respiratory Rate 18 18 Respiratory Effort Normal Respiratory Pattern Normal Blood Pressure 163/69 H 165/82 H Blood Pressure Mean 100 109 Pulse Ox 97 99 Oxygen Delivery Method Room Air Positive well nourished, well developed and obese General Appearance ED: well developed Nutritional Appearance: obese HEENT HEENT Narrative: Normocephalic atraumatic Eyes PERRL and EOMs intact bilaterally General Eye ED: Negative for pale conjunctiva or scleral icterus Neck supple Neck Narrative: No nuchal rigidity or meningeal signs Resp normal respiratory effort and clear to auscultation bilaterally Resp Narrative: No nasal flaring retractions tachypnea or accessory muscle use Cardio regular rate and regular rhythm GI normal to inspection, nondistended, normoactive bowel sounds, non-tender, non- distended and no masses GI Narrative: No fluid wave noted No pulsatile mass or peritoneal signs Auscultation: normoactive bowel sounds Palpation: soft Extremity Extremity Narrative: Patient has +2-3 pitting edema to the bilateral lower extremities that extends from the dorsum of the feet to just below the knees Negative Homans' sign bilaterally Patient has chronic stasis changes to bilateral lower legs but no signs of secondary infection Patient has a healing ulcer to the plantar aspect of the right foot and a skin avulsion ulcer to the plantar aspect of the left foot but no surrounding secondary soft tissue changes to suggest infection. Negative Homans' sign bilaterally Neuro oriented x3 and CN's II-XII intact bilaterally Sensorium / Orientation: alert Psych mental status grossly normal Skin No no wounds Skin Narrative: Soft tissue changes to the lower legs as documented above General Skin Exam: Negative for jaundice MDM MDM MDM Narrative Medical decision making narrative: Patient arrived to the ER hypertensive otherwise with stable vitals. She reported bilateral lower leg swelling without injury. Differential diagnosis is for congestive heart failure versus peripheral edema versus cellulitis versus ascites. The patient does not have pain with palpation of the calves going against DVT and this would be rare to have in the bilateral nature. She has chronic stasis changes without secondary findings to suggest infection going against cellulitis or abscess. She does not have a fluid wave in her abdomen going against abdominal ascites/cirrhosis as a cause of her peripheral edema. Also lung sounds are clear with out crackles going against CHF exacerbation. At this time the patient's increased peripheral edema is most likely secondary to the fact she missed dialysis. Overall as vitals are stable and heart is regular rate and rhythm I do not feel that there is need for emergent dialysis and as workup does not reveal any signs of severe fluid overload leading to respiratory distress there is no need for admission or laboratory testing. Patient can be discharged home at this time and strongly advised to get dialysis on Tuesday but did try and contact her dialysis center on Tuesday for potential make-up session. Patient agrees with plan of care and at this time is otherwise safe for discharge History & Record Review Discussion w/independent historian: Patient Discharge Plan Triage Chief Complaint: Edema ED Provider: Sergio John Dx/Rx/DC Orders Clinical Impression: ESRD on dialysis, Peripheral edema, Insulin dependent diabetes mellitus, Hypertension Instructions: CKD Dc, ED Peripheral Edema, Bilateral Prescriptions: No Action paroxetine HCl 20 mg tablet 20 mg PO DAILY Patient Comments: TAKE 1 TABLET BY MOUTH EVERY DAY IN THE EVENING bupropion HCl 150 mg tablet extended release 24 hr 150 mg PO DAILY Patient Comments: TAKE 1 TABLET BY MOUTH EVERY DAY sennosides-docusate sodium [Stool Softener-Stimulant Laxat] 8.6-50 mg Tablet 2 tab PO BID PRN PRN (Reason: Constipation) Qty: 0 0RF ascorbic acid (vitamin C) [Vitamin C] 500 mg Tablet 500 mg PO BID clopidogrel 75 mg tablet 75 mg PO DAILY pantoprazole 40 mg tablet,delayed release (DR/EC) 40 mg PO BIDCM ferrous sulfate 325 mg (65 mg iron) tablet 325 mg PO .three times a week Patient Comments: takes three times a week, on Tuesday, and Tuesday insulin lispro [Humalog KwikPen Insulin] 100 unit/mL Insulin Pen See Protocol subcut TIDAC Qty: 0 0RF Protocol: 1. Sliding Scale Insulin Low Dosing Condition: 150-224 mg/dl = 1 unit Condition: 225-299 mg/dl = 2 units Condition: 300-374 mg/dl = 3 units Condition: 375-499 mg/dl = 4 units Condition: Greater than 449 call physician Protocol Text: - Use for Total Daily Dose of Insulin 15-27 units - Thin, elderly, renal patients LOW DOSING ALGORITHM insulin glargine-yfgn 100 unit/mL (3 mL) insulin pen 5 unit subcut QHS Qty: 15 0RF Rx Instructions: Hold if glucose less than 130 mg/dl gabapentin 100 mg capsule 100 mg PO .COMPLEX PRN (Reason: pain) Rx Instructions: 100 mg orally 3 times a week Tuesday, Tuesday and Tuesday cyclobenzaprine 5 mg tablet 5 mg PO TID PRN (Reason: muscle spasm) Qty: 21 0RF cephalexin 500 mg capsule 500 mg PO Q8H 7 Days Qty: 21 0RF sulfamethoxazole-trimethoprim [Bactrim DS] 800-160 mg tablet 1 tab PO BID 7 Days Qty: 14 0RF atorvastatin 20 mg tablet 20 mg PO DAILY Patient Comments: TAKE 1 TABLET BY MOUTH EVERY DAY calcium acetate(phosphat bind) 667 mg capsule 676 mg PO TID Patient Comments: TAKE 1 CAPSULE BY MOUTH THREE TIMES A DAY WITH FOOD folic acid 800 mcg tablet 0.8 mg PO DAILY Patient Comments: TAKE 1 TABLET BY MOUTH EVERY DAY levothyroxine 25 mcg tablet 25 mcg PO DAILY Patient Comments: TAKE 1 TABLET BY MOUTH EVERY DAY BEFORE BREAKFAST insulin aspart U-100 100 unit/mL (3 mL) insulin pen SUBCUT Patient Comments: PLEASE SEE ATTACHED FOR DETAILED DIRECTIONS olanzapine 5 mg tablet 5 mg PO QHS Patient Comments: TAKE 1 TABLET BY MOUTH EVERYDAY AT BEDTIME amlodipine 5 mg tablet 5 mg PO DAILY carvedilol 12.5 mg tablet 12.5 mg PO BID Rx Instructions: must administer with a meal/food hydralazine 25 mg tablet 25 mg PO TID insulin glargine [Lantus Solostar U-100 Insulin] 100 unit/mL (3 mL) insulin pen 20 unit subcut DAILY lidocaine-silicone, adhesive topical Patient Comments: 1 patch daily melatonin 5 mg capsule 5 mg PO .bedtime insulin aspart U-100 [Novolog FlexPen U-100 Insulin] 6 unit subcut TID Patient Comments: give with meals ondansetron 4 mg tablet,disintegrating 4 mg PO DAILY PRN (Reason: nausea and vomiting) pramipexole dihydrochloride 1.5 mg PO BID isosorbide dinitrate 10 mg Tablet 20 mg PO TID acetaminophen 325 mg capsule 325 mg PO Q4H PRN (Reason: fever or pain) antacid extra assorted fruit tablets 750 mg PO .every 4 hours PRN (Reason: tums) calcitriol 0.5 mcg capsule 0.5 mcg PO .COMPLEX Rx Instructions: 0.5 mcg orally three times a week; cloNIDine See Rx Instructions .ROUTE .COMPLEX Rx Instructions: 0.1mg every 4 hours as needed diphenhydramine 25 mg IV Rx Instructions: every 30 minutes as needed. loperamide [Anti-Diarrheal (loperamide)] 2 mg capsule 2 mg PO Q4H PRN (Reason: loose stool) Rx Instructions: administer after each loose stool until symptoms controlled; do not exceed 8 mg per 24 hrs Mircera See Rx Instructions .ROUTE .COMPLEX Rx Instructions: intravenous every 2 weeks nitroglycerin [Nitrostat] 0.4 mg tablet, sublingual 0.4 mg sublingual Q5M Rx Instructions: do not exceed 3 doses per episode promethazine 25 mg tablet 25 mg PO Q4H PRN (Reason: nausea and vomiting) Venofer Rx Instructions: 50 mg one time a week. cefepime in dextrose 5 % 1 gram/50 mL piggyback 1 g IV .as directed Rx Instructions: Dose with dialysis sessions. 1gm on Tue, 2gm on , 1gm on , 2gm on Tuesday. Stop date 01/30/24. Dx: MSSA endocarditis. Weekly bmp and cbc. Fax to [phone]. aspirin 81 mg capsule 81 mg PO DAILY Qty: 30 1RF Primary Care Provider: Raúl Eric Referrals: Raúl Eric MD [Primary Care Provider] - Activity Restrictions/Additional Instructions: Please contact your dialysis center to see if they can work you in tomorrow. Otherwise maintain your normal dialysis for Tuesday as you normally would. If you feel your symptoms are worsening or you have any further concerns please return to the ER for repeat evaluation Print Language: Hebrew Disposition Disposition: Home, Self Care Discharge Date/Time: 03/17/24 22:52
--- NOTE | 2024-03-17 22:27 | ED.RN ---
I called [facility] for patient ride home, no answer and no voicemail box set up.
[2024-03-17 22:39] VITALS: BP 165/82; PULSE 84; RESP 18; TEMP 36.6; O2SAT 99
[2024-03-19 15:42] LABS: Bedside Glucose 249 mg/dL (74-106)
== END 2024-03-17 22:52 | disposition home or self-care (01) ==
LOC: ED 22:32
PROVIDERS: Emergency Provider Emergency Medicine; PCP Family Medicine; Visit Provider Emergency Medicine
DX: I12.0 Hypertensive chronic kidney disease with stage 5 chronic kidney disease or end stage renal disease (principal); N18.6 End stage renal disease; Z79.4 Long term (current) use of insulin; E11.22 Type 2 diabetes mellitus with diabetic chronic kidney disease; E11.42 Type 2 diabetes mellitus with diabetic polyneuropathy; Z99.2 Dependence on renal dialysis; Z79.82 Long term (current) use of aspirin; Z79.02 Long term (current) use of antithrombotics/antiplatelets; Z79.899 Other long term (current) drug therapy; M79.604 Pain in right leg; M79.605 Pain in left leg; M79.672 Pain in left foot
CPT/HCPCS: 99282; 82962; A4216

== ENCOUNTER 2024-03-18 16:21 | Inpatient (IN) | payer MEDICARE, MEDICAID, SELFPAY ==
[2018-09-21 13:23] VITALS: BMI 29.3
[2024-03-18 16:23] VITALS: BP 158/67; PULSE 88; RESP 16; TEMP 36.3; O2SAT 97
--- NOTE | 2024-03-18 16:56 | EKG12_ITS ---
Test Reason : SOB Blood Pressure : / mmHG Vent. Rate : 090 BPM Atrial Rate : 090 BPM P-R Int : 186 ms QRS Dur : 084 ms QT Int : 380 ms P-R-T Axes : 043 007 -02 degrees QTc Int : 464 ms Normal sinus rhythm Normal ECG Confirmed by Kayden Elaine ([id number]), newspaper editor managing HARINI PHAM ([id number]) on 03/19/2024 11:24:54 AM Referred By: Confirmed By:Kayden Elaine
--- NOTE | 2024-03-18 17:02 | EX.ED.DYSGE1 ---
HPI History of Present Illness Chief Complaint: Shortness of Breath Informant: patient Narrative Narrative: Patient states she does not feel well and is swollen all over, with swelling and pain in her face, hands, feet, and discomfort in her low back nonlateralizing worse with movement. She is a dialysis patient, Tuesday. Today is Tuesday, 2 days ago on Tuesday she accidentally missed dialysis because she was asleep when they came to get her and when she went to the door they had already left. She does make a small amount of urine states that has not changed. States today she has noted some left-sided burning abdominal discomfort. No vomiting or diarrhea/blood. [place] a little short of breath but no chest discomfort or coughing or fevers. She states a family member called the hospital for her and they are going to admit me for dialysis. [facility] Medical History Carotid artery stenosis MSSA bacteremia Chronic anemia ESRD on hemodialysis Osteomyelitis End stage renal disease Anemia in chronic illness Type 2 diabetes mellitus Foot osteomyelitis, left Chronic renal disease, stage 4, severely decreased glomerular filtration rate (GFR) between 15-29 mL/min/1.73 square meter Acute on chronic anemia Chronic ulcer of right foot with necrosis of bone Chronic kidney disease, stage 4 (severe) Diabetes mellitus with diabetic polyneuropathy CRF (chronic renal failure) Diabetic foot ulcers Cellulitis of both lower extremities Chronic kidney disease, stage 3b Osteomyelitis of metatarsal Charcot's joint, right ankle and foot Charcot's joint, left ankle and foot Cellulitis Acute lumbar radiculopathy Essential hypertension Adult failure to thrive Type 2 diabetes mellitus with diabetic polyneuropathy Elevated troponin COVID-19 (08/28/21) Chronic ulcer of right leg with fat layer exposed Ulcer of left foot with fat layer exposed Chronic ulcer of right foot with fat layer exposed Hyperparathyroidism, secondary renal Iron deficiency anemia Anemia due to chronic illness Stage 4 chronic kidney disease Bilateral edema of lower extremity Chronic foot pain Chronic ulcer of right foot with necrosis of muscle Non-pressure chronic 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 layer exposed Debility Charcot's joint of right foot Diabetes Non-smoker Myocardial infarct Hypertension TIA (transient ischemic attack) Amputation foot, bilat Non-pressure chronic ulcer of other part of left foot with fat layer exposed Type 2 diabetes mellitus with diabetic polyneuropathy 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 Ulcer of left foot with necrosis of muscle Chronic renal insufficiency Ulcer of left foot with muscle involvement without evidence of necrosis Anxiety and depression Diabetic infection of left foot Delayed wound healing Non-compliance Osteomyelitis of left foot Essential (primary) hypertension Diabetic polyneuropathy Ischemic cardiomyopathy Normocytic anemia Obesity (BMI 30.0-34.9) Type 2 diabetes mellitus with diabetic polyneuropathy Acquired varus deformity of left foot Acquired varus deformity of right foot Chronic ulcer of left foot with fat layer exposed Ulcer of right lower extremity with fat layer exposed Atherosclerosis of [place] coronary artery of [place] heart without angina pectoris Hemoglobin A1c greater than 9.0% Diabetic ulcer of right ankle NSTEMI (non-ST elevated myocardial infarction) (09/20/18) GERD (gastroesophageal reflux disease) HLD (hyperlipidemia) Back pain, chronic Diabetic foot ulcer associated with type 2 diabetes mellitus RLS (restless legs syndrome) Home Medications ?Medication ?Instructions ?Recorded ?Last Taken ?Type paroxetine HCl 20 mg tablet 20 mg PO DAILY DEPRESSION 07/07/21 04/07/22 History bupropion HCl 150 mg 24 hr tablet, 150 mg PO DAILY mood 02/04/22 04/07/22 History extended release sennosides 8.6 mg-docusate sodium 2 tab PO BID PRN PRN Constipation 04/24/22 Unknown Rx 50 mg tablet (Stool #0 tabs Softener-Stimulant Laxative) ascorbic acid (vitamin C) 500 mg 500 mg PO BID supplement 05/05/22 Unknown History tablet (Vitamin C) clopidogrel 75 mg tablet 75 mg PO DAILY prevent stroke 07/19/22 Unknown History ferrous sulfate 325 mg (65 mg 325 mg PO .three times a week 07/19/22 Unknown History iron) tablet anemia pantoprazole 40 mg tablet,delayed 40 mg PO BIDCM GERD 07/19/22 Unknown History release insulin glargine-yfgn 100 unit/mL 5 unit (0.05 mL) subcut QHS blood 07/21/22 Unknown Rx (3 mL) subcutaneous pen sugar #15 mL insulin lispro 100 unit/mL See Protocol subcut TIDAC #0 mL 07/21/22 Unknown Rx subcutaneous pen (Humalog KwikPen (U-100) Insulin) cyclobenzaprine 5 mg tablet 5 mg PO TID PRN muscle spasm #21 11/26/23 Unknown Rx tabs gabapentin 100 mg capsule 100 mg PO .COMPLEX PRN pain 11/26/23 Unknown History Mircera See Rx Instructions .Route 12/16/23 Unknown History .COMPLEX dialysis Venofer iron 12/16/23 Unknown History acetaminophen 325 mg capsule 325 mg PO Q4H PRN fever or pain 12/16/23 Unknown History amlodipine 5 mg tablet 5 mg PO DAILY bp 12/16/23 Unknown History antacid extra assorted fruit 750 mg PO .every 4 hours PRN tums 12/16/23 Unknown History tablets calcitriol 0.5 mcg capsule 0.5 mcg PO .COMPLEX on dialysis 12/16/23 Unknown History calcium acetate(phosphat bind) 667 676 mg PO TID is on dialysis 12/16/23 Unknown History mg capsule cloNIDine See Rx Instructions .Route 12/16/23 Unknown History .COMPLEX dialysis diphenhydramine 25 mg IV itching 12/16/23 Unknown History folic acid 800 mcg tablet 0.8 mg PO DAILY supplement 12/16/23 Unknown History hydralazine 25 mg tablet 25 mg PO TID bp 12/16/23 Unknown History insulin aspart U-100 6 unit subcut TID blood glucose 12/16/23 Unknown History insulin aspart U-100 100 unit/mL subcut 12/16/23 Unknown History (3 mL) subcutaneous pen insulin glargine 100 unit/mL (3 20 unit subcut DAILY blood glucose 12/16/23 Unknown History mL) subcutaneous pen (Lantus Solostar U-100 Insulin) isosorbide dinitrate 10 mg tablet 20 mg PO TID bp and heart 12/16/23 Unknown History levothyroxine 25 mcg tablet 25 mcg PO DAILY thyroid 12/16/23 Unknown History lidocaine-silicone, adhesive topical pain 12/16/23 Unknown History loperamide 2 mg capsule 2 mg PO Q4H PRN loose stool 12/16/23 Unknown History (Anti-Diarrheal (loperamide)) melatonin 5 mg capsule 5 mg PO .bedtime sleep 12/16/23 Unknown History nitroglycerin 0.4 mg sublingual 0.4 mg sublingual Q5M chest pain 12/16/23 Unknown History tablet (Nitrostat) olanzapine 5 mg tablet 5 mg PO QHS sleep 12/16/23 Unknown History ondansetron 4 mg disintegrating 4 mg PO DAILY PRN nausea and 12/16/23 Unknown History tablet vomiting pramipexole dihydrochloride 1.5 mg PO BID unknown 12/16/23 Unknown History promethazine 25 mg tablet 25 mg PO Q4H PRN nausea and 12/16/23 Unknown History vomiting aspirin 81 mg capsule 81 mg PO DAILY #30 caps 12/26/23 Unknown Rx cefepime 1 gram/50 mL in dextrose 1 g IV .as directed 12/26/23 Unknown Rx 5 % intravenous piggyback cephalexin 500 mg capsule 500 mg PO Q8H 7 days #21 caps 02/07/24 Unknown Rx sulfamethoxazole 800 1 tab PO BID 7 days #14 tabs 02/07/24 Unknown Rx mg-trimethoprim 160 mg tablet (Bactrim DS) atorvastatin 40 mg tablet 40 mg PO DAILY 03/18/24 Unknown History buprenorphine 5 mcg/hour weekly 1 patch topical QWEEK 03/18/24 Unknown History transdermal patch carvedilol 25 mg tablet 25 mg PO BID 03/18/24 Unknown History Allergy/AdvReac Type Severity Reaction Status Date / Time Penicillins Allergy swelling Verified 03/18/24 16:25 in throat vancomycin Allergy Itching Verified 03/18/24 16:25 metronidazole AdvReac Nausea Verified 03/18/24 16:25 oxycodone (From OxyContin) AdvReac Shortness Verified 03/18/24 16:25 of breath Family History Mother Diabetes CVA (cerebral vascular accident) Brother CAD (coronary artery disease) CABG X 3 Cancer testicular Diabetes Brother CAD (coronary artery disease) CABG X3 Diabetes Brother CAD (coronary artery disease) Stents Diabetes Sister CAD (coronary artery disease) CABG x 3 CVA (cerebral vascular accident) Diabetes Surgical History History of History of foot surgery History of bilateral carpal tunnel release History of rotator cuff surgery History of coronary artery stent placement (12/31/20) Social History household members: none number of children: 2 current occupational status: disabled Smoking Status: Never smoker alcohol intake: never substance use type: does not use caffeine: Yes Type: carbonated beverages Number of servings: 2 ROS ROS ED Constitutional Constitutional ED: Reports fatigue and malaise; Denies chills or fever(s) Eyes Eyes: Denies change in vision or diplopia ENT ENT ED: Denies rhinorrhea or sore throat Cardiovascular Cardiovascular: Reports as per HPI and edema; Denies chest pain or palpitations Respiratory/Chest Respiratory/Chest: Reports dyspnea; Denies cough Gastrointestinal Gastrointestinal: Reports abdominal pain; Denies diarrhea, nausea or vomiting Genitourinary Genitourinary ED: Denies dysuria, hematuria or urinary frequency Musculoskeletal Musculoskeletal: Reports back pain; Denies neck pain Integumentary Denies abscess or rash Neurologic Neurologic: Denies headache(s), paresthesias or weakness Psychiatric Psychiatric: Denies suicidal thoughts EXAM Physical Exam Const Vital Signs: 03/18/24 16:23 03/18/24 17:53 03/18/24 18:22 Temperature 97.3 F L Temperature Source Temporal Pulse Rate 88 86 Respiratory Rate 16 15 Respiratory Effort Non-Labored Respiratory Depth Normal Respiratory Pattern Normal Blood Pressure 158/67 H 149/75 H Blood Pressure Mean 97 99 Pulse Ox 97 94 Oxygen Delivery Method Room Air Room Air Room Air 03/18/24 18:32 Temperature 97.3 F L Temperature Source Pulse Rate 86 Respiratory Rate 15 Respiratory Effort Respiratory Depth Respiratory Pattern Blood Pressure 149/75 H Blood Pressure Mean 99 Pulse Ox 94 Oxygen Delivery Method Positive well nourished and well developed Constitutional Narrative: Somnolent but easily alerts to voice General Appearance ED: well developed and NAD HEENT Reports moist mucous membranes HEENT Narrative: Mild facial edema without signs of erythema or tenderness/abscess normocephalic and atraumatic Eyes PERRL and EOMs intact bilaterally Neck full ROM and supple Chest Wall inspection of chest normal and palpation of chest normal Resp normal respiratory effort and clear to auscultation bilaterally Cardio regular rate, regular rhythm and no murmurs GI non-distended GI Narrative: Superficially tender left upper quadrant Auscultation: normoactive bowel sounds Palpation: soft Back/Spine no CVA tenderness General Back: other FROM Extremity normal to inspection General Extremety ED: Yes edema; Negative for pulses abnormal or tenderness General Extremity: edema bilateral upper extremity mild and lower extremity Details: mild; Negative for pulses abnormal Neuro oriented x3, CN's II-XII intact bilaterally and no sensory deficits noted Sensorium / Orientation: awake, alert and somnolent Motor Exam: strength 5/5 throughout Psych Mood & Affect: anxious Skin no rashes or lesions noted and no wounds MDM MDM MDM Narrative Medical decision making narrative: Clinically patient is not in pulmonary edema, is not hypoxic, and is not dyspneic. Chest x-ray 1 view on my interpretation is normal. Radiology in agreement. Her labs show uremia and hyperkalemia but it is mild. She has some peaked T waves on her EKG but no other changes of hyperkalemia. I compared this to the last EKG that I saw when she was not hyperkalemic, 12/22/2023, and she has similar morphology of T waves indicating that her EKG today is not showing any EKG changes of hyperkalemia acutely. Discussed with hospitalist and nephrology Dr. Romero, who recommends Kayexalate 30 g and dialysis while in the hospital first thing in the morning. Lab Data Attestation: I reviewed the patient's lab results. Labs: Laboratory Results - last 24 hr 03/18/24 17:17 WBC 5.8 RBC 2.77 L Hgb 8.7 L Hct 26.7 L MCV 96.4 MCH 31.4 MCHC 32.6 RDW Std Deviation 49.9 H RDW Coeff of [place] 14.2 Plt Count 212 MPV 10.4 Immature Gran % (Auto) 0.200 Neut % (Auto) 75.5 H Lymph % (Auto) 12.2 L [place] % (Auto) 6.5 Eos % (Auto) 5.1 H Baso % (Auto) 0.5 Absolute Neuts (auto) 4.4 Absolute Lymphs (auto) 0.71 L Nucleated RBC % 0 Sodium 139 Potassium 6.1 H* Chloride 106 Carbon Dioxide 23.0 BUN 102 H* Creatinine 8.10 H* Est GFR (MDRD) Af Amer 7 L Est GFR (MDRD) Non-Af 5 L BUN/Creatinine Ratio 12.6 Glucose 283 H Calcium 7.7 L Phosphorus 5.8 H Albumin 3.4 Radiography Chest X-Ray - ED: 1 View, Read by ED Physician and No Acute Disease Diagnostic Testing: Clinical Impression(s) from Imaging Studies Chest X-Ray 03/18/24 17:20 IMPRESSION: No acute cardiopulmonary pathology. Electronically Signed: Jefe Cesar MD at 18:03 EDT Reading Location ID and State: [address] [place] [address] Tel , Service support , Rhythm Strip Rhythm Strip: Sinus Rhythm Rate: 90 Ectopy: None EKG Initial EKG: Attestation: I personally reviewed and interpreted this EKG as follows: Interpretation: Sinus Rhythm and No Acute Injury Pattern Comments: peaked T waves V2-3 only; nml FL, QRS Prior EKG tracings: available for review Prior: Unchanged Management Discussion w/another healthcare provider: Hospitalist and Javascript Software Engineer (nephrology Dr. Romero) Discharge Plan Dx/Rx/DC Orders Clinical Impression: Renal anasarca, ESRD on dialysis, Hyperkalemia, diminished renal excretion Disposition Disposition: Acute Care Hospital [facility]
--- NOTE | 2024-03-18 17:20 | RAD_ITS ---
STUDY: X-RAY CHEST REASON FOR EXAM: Female, 58 years old. dyspnea TECHNIQUE: AP portable COMPARISON: January 21, 2024 FINDINGS: Elevated right hemidiaphragm and minor basilar atelectasis.. There is no demonstrated pleural abnormality. Normal size heart. Normal mediastinum and elvie. Normal visualized pulmonary arteries. Normal visualized aortic arch and descending thoracic aorta. Central venous catheter noted on the left with tip in distal superior vena cava. Post surgical changes of the thoracolumbar spine.. Normal visualized ribs, clavicles, and shoulders. There is no demonstrated abnormality of the visualized soft tissue structures of the upper abdomen. No significant change since prior exam RAD/Chest 1 View (Portable) IMPRESSION: No acute cardiopulmonary pathology. Electronically Signed: Jefe Cesar MD at 18:03 EDT ,
[2024-03-18 17:26] LABS: Absolute Lymphocyte Count 0.71 X10^3/uL (0.83-4.51); Absolute Neutrophil Count 4.4 X10^3/uL (2.0-7.7); Basophil# 0.03 X10^3/uL; Basophil% 0.5 % (0-1); Eosinophils% 5.1 % (0-5); Hematocrit 26.7 % (37-47); Hemoglobin 8.7 g/dL (12.0-15.0); Lymphocyte # 0.71 X10^3/ul (0.83-4.51); Lymphocyte % 12.2 % (19-41); Mean Corp Hgb Conc 32.6 g/dL (32-36); Mean Corpuscular Hgb 31.4 pg (27.0-32.0); Mean Corpuscular Volume 96.4 fL (81-99); Mean Platelet Vol. 10.4 fl (6.2-12.0); Monocyte# 0.38 X10^3/uL; Monocyte% 6.5 % (0-10); NRBC Flagged by Analyzer 0 % (0-5); Neutrophil % 75.5 % (47-70); Platelet Count 212 K/mm3 (150-450); RBC Distribution Width CV 14.2 % (11.6-14.6); RBC Distribution Width SD 49.9 fl (35.1-43.9); Red Blood Count 2.77 M/mm3 (4.2-5.4); White Blood Count 5.8 K/mm3 (4.4-11.0)
[2024-03-18] MEDS: Pantoprazole Sodium 40 MG Tablet PO (17:26)
[2024-03-18 18:16] LABS: Albumin, Serum 3.4 g/dL (3.2-5.0); BUN 102 mg/dL (7-18); BUN/Creat Ratio 12.6 RATIO (10-20); Calcium,Total 7.7 mg/dL (8.5-10.1); Chloride 106 mmol/L (98-107); EST Glomerular Filtration Rate 5 mL/min (>60); Est Glom Filt Rate - Afr Amer 7 mL/min (>60); Glucose 283 mg/dL (74-106); Phosphorus 5.8 mg/dL (2.5-4.9); Potassium 6.1 mmol/L (3.5-5.1); Sodium Level 139 mmol/L (136-145)
[2024-03-18 18:22] VITALS: BP 149/75; PULSE 86; RESP 15; O2SAT 94
--- NOTE | 2024-03-18 18:28 | PCM.HP.STD ---
HPI - General General Date of Admission: 03/18/24 Date of Service: 03/18/24 Chief Complaint: Acute shortness of breath HPI Narrative DIONY ROCHA, is a 58 F who presents to the ED for concerns of worsening SOB in the setting of missed dialysis. She has ESRD and was scheduled to have her dialysis session on Tuesday, but missed because she missed the bill from her transportation team. Today that she has been feeling more bloated and has generalized aches and pains over her body, she presented to the ED for the same. She has been satting well on room air with oxygen of 94% and has not needed any supplemental oxygen. No other concerns On evaluation in the ED, her blood pressure was 149/75, pulse of 86, WBC 5.8, RBC 2.7, platelet count 212, hemoglobin 8.7, potassium 6.1, BUN 102, creatinine 8.1, glucose 283, calcium 7.7, albumin 3.4, chest x-ray showed no significant change. She has no other major concerns, no fever no nausea vomiting [facility] Medical History Carotid artery stenosis MSSA bacteremia Chronic anemia ESRD on hemodialysis Osteomyelitis End stage renal disease Anemia in chronic illness Type 2 diabetes mellitus Foot osteomyelitis, left Chronic renal disease, stage 4, severely decreased glomerular filtration rate (GFR) between 15-29 mL/min/1.73 square meter Acute on chronic anemia Chronic ulcer of right foot with necrosis of bone Chronic kidney disease, stage 4 (severe) Diabetes mellitus with diabetic polyneuropathy CRF (chronic renal failure) Diabetic foot ulcers Cellulitis of both lower extremities Chronic kidney disease, stage 3b Osteomyelitis of metatarsal Charcot's joint, right ankle and foot Charcot's joint, left ankle and foot Cellulitis Acute lumbar radiculopathy Essential hypertension Adult failure to thrive Type 2 diabetes mellitus with diabetic polyneuropathy Elevated troponin COVID-19 (08/28/21) Chronic ulcer of right leg with fat layer exposed Ulcer of left foot with fat layer exposed Chronic ulcer of right foot with fat layer exposed Hyperparathyroidism, secondary renal Iron deficiency anemia Anemia due to chronic illness Stage 4 chronic kidney disease Bilateral edema of lower extremity Chronic foot pain Chronic ulcer of right foot with necrosis of muscle Non-pressure chronic 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 layer exposed Debility Charcot's joint of right foot Diabetes Non-smoker Myocardial infarct Hypertension TIA (transient ischemic attack) Amputation foot, bilat Non-pressure chronic ulcer of other part of left foot with fat layer exposed Type 2 diabetes mellitus with diabetic polyneuropathy 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 Ulcer of left foot with necrosis of muscle Chronic renal insufficiency Ulcer of left foot with muscle involvement without evidence of necrosis Anxiety and depression Diabetic infection of left foot Delayed wound healing Non-compliance Osteomyelitis of left foot Essential (primary) hypertension Diabetic polyneuropathy Ischemic cardiomyopathy Normocytic anemia Obesity (BMI 30.0-34.9) Type 2 diabetes mellitus with diabetic polyneuropathy Acquired varus deformity of left foot Acquired varus deformity of right foot Chronic ulcer of left foot with fat layer exposed Ulcer of right lower extremity with fat layer exposed Atherosclerosis of [place] coronary artery of [place] heart without angina pectoris Hemoglobin A1c greater than 9.0% Diabetic ulcer of right ankle NSTEMI (non-ST elevated myocardial infarction) (09/20/18) GERD (gastroesophageal reflux disease) HLD (hyperlipidemia) Back pain, chronic Diabetic foot ulcer associated with type 2 diabetes mellitus RLS (restless legs syndrome) Home Medications ?Medication ?Instructions ?Recorded ?Last Taken ?Type paroxetine HCl 20 mg tablet 20 mg PO DAILY DEPRESSION 07/07/21 04/07/22 History bupropion HCl 150 mg 24 hr tablet, 150 mg PO DAILY mood 02/04/22 04/07/22 History extended release sennosides 8.6 mg-docusate sodium 2 tab PO BID PRN PRN Constipation 04/24/22 Unknown Rx 50 mg tablet (Stool #0 tabs Softener-Stimulant Laxative) ascorbic acid (vitamin C) 500 mg 500 mg PO BID supplement 05/05/22 Unknown History tablet (Vitamin C) clopidogrel 75 mg tablet 75 mg PO DAILY prevent stroke 07/19/22 Unknown History ferrous sulfate 325 mg (65 mg 325 mg PO .three times a week 07/19/22 Unknown History iron) tablet anemia pantoprazole 40 mg tablet,delayed 40 mg PO BIDCM GERD 07/19/22 Unknown History release insulin glargine-yfgn 100 unit/mL 5 unit (0.05 mL) subcut QHS blood 07/21/22 Unknown Rx (3 mL) subcutaneous pen sugar #15 mL insulin lispro 100 unit/mL See Protocol subcut TIDAC #0 mL 07/21/22 Unknown Rx subcutaneous pen (Humalog KwikPen (U-100) Insulin) cyclobenzaprine 5 mg tablet 5 mg PO TID PRN muscle spasm #21 11/26/23 Unknown Rx tabs gabapentin 100 mg capsule 100 mg PO .COMPLEX PRN pain 11/26/23 Unknown History Mircera See Rx Instructions .Route 12/16/23 Unknown History .COMPLEX dialysis Venofer iron 12/16/23 Unknown History acetaminophen 325 mg capsule 325 mg PO Q4H PRN fever or pain 12/16/23 Unknown History amlodipine 5 mg tablet 5 mg PO DAILY bp 12/16/23 Unknown History antacid extra assorted fruit 750 mg PO .every 4 hours PRN tums 12/16/23 Unknown History tablets calcitriol 0.5 mcg capsule 0.5 mcg PO .COMPLEX on dialysis 12/16/23 Unknown History calcium acetate(phosphat bind) 667 676 mg PO TID is on dialysis 12/16/23 Unknown History mg capsule cloNIDine See Rx Instructions .Route 12/16/23 Unknown History .COMPLEX dialysis diphenhydramine 25 mg IV itching 12/16/23 Unknown History folic acid 800 mcg tablet 0.8 mg PO DAILY supplement 12/16/23 Unknown History hydralazine 25 mg tablet 25 mg PO TID bp 12/16/23 Unknown History insulin aspart U-100 6 unit subcut TID blood glucose 12/16/23 Unknown History insulin aspart U-100 100 unit/mL subcut 12/16/23 Unknown History (3 mL) subcutaneous pen insulin glargine 100 unit/mL (3 20 unit subcut DAILY blood glucose 12/16/23 Unknown History mL) subcutaneous pen (Lantus Solostar U-100 Insulin) isosorbide dinitrate 10 mg tablet 20 mg PO TID bp and heart 12/16/23 Unknown History levothyroxine 25 mcg tablet 25 mcg PO DAILY thyroid 12/16/23 Unknown History lidocaine-silicone, adhesive topical pain 12/16/23 Unknown History loperamide 2 mg capsule 2 mg PO Q4H PRN loose stool 12/16/23 Unknown History (Anti-Diarrheal (loperamide)) melatonin 5 mg capsule 5 mg PO .bedtime sleep 12/16/23 Unknown History nitroglycerin 0.4 mg sublingual 0.4 mg sublingual Q5M chest pain 12/16/23 Unknown History tablet (Nitrostat) olanzapine 5 mg tablet 5 mg PO QHS sleep 12/16/23 Unknown History ondansetron 4 mg disintegrating 4 mg PO DAILY PRN nausea and 12/16/23 Unknown History tablet vomiting pramipexole dihydrochloride 1.5 mg PO BID unknown 12/16/23 Unknown History promethazine 25 mg tablet 25 mg PO Q4H PRN nausea and 12/16/23 Unknown History vomiting aspirin 81 mg capsule 81 mg PO DAILY #30 caps 12/26/23 Unknown Rx cefepime 1 gram/50 mL in dextrose 1 g IV .as directed 12/26/23 Unknown Rx 5 % intravenous piggyback cephalexin 500 mg capsule 500 mg PO Q8H 7 days #21 caps 02/07/24 Unknown Rx sulfamethoxazole 800 1 tab PO BID 7 days #14 tabs 02/07/24 Unknown Rx mg-trimethoprim 160 mg tablet (Bactrim DS) atorvastatin 40 mg tablet 40 mg PO DAILY 03/18/24 Unknown History buprenorphine 5 mcg/hour weekly 1 patch topical QWEEK 03/18/24 Unknown History transdermal patch carvedilol 25 mg tablet 25 mg PO BID 03/18/24 Unknown History Allergy/AdvReac Type Severity Reaction Status Date / Time Penicillins Allergy swelling Verified 03/18/24 16:25 in throat vancomycin Allergy Itching Verified 03/18/24 16:25 metronidazole AdvReac Nausea Verified 03/18/24 16:25 oxycodone (From OxyContin) AdvReac Shortness Verified 03/18/24 16:25 of breath Family History Mother Diabetes CVA (cerebral vascular accident) Brother CAD (coronary artery disease) CABG X 3 Cancer testicular Diabetes Brother CAD (coronary artery disease) CABG X3 Diabetes Brother CAD (coronary artery disease) Stents Diabetes Sister CAD (coronary artery disease) CABG x 3 CVA (cerebral vascular accident) Diabetes Surgical History History of History of foot surgery History of bilateral carpal tunnel release History of rotator cuff surgery History of coronary artery stent placement (12/31/20) Social History household members: none number of children: 2 current occupational status: disabled Smoking Status: Never smoker alcohol intake: never substance use type: does not use caffeine: Yes Type: carbonated beverages Number of servings: 2 ROS Review of Systems ROS Unobtainable: Denies due to encephalopathy, due to endotracheal tube, due to mental condition, due to mental status or other Constitutional Constitutional: Reports fatigue and malaise; Denies anorexia, change in weight, chills, fever(s), night sweats, weakness or other Eyes Eyes: Denies blurry vision, change in eye color, change in vision, discharge from eye(s), double vision, erythema, eye pain, loss of vision or other ENT HEENT: Denies abnormal hearing, dysphagia, ear pain, epistaxis, headache(s), hearing loss, nasal congestion, nasal discharge, post nasal drip, sinus pressure, sore throat or other Cardiovascular Cardiovascular: Denies chest pain, claudication, dyspnea on exertion, edema, lightheadedness, orthopnea, palpitations, paroxysmal nocturnal dyspnea, rapid heart rate, syncope or other Respiratory/Chest Respiratory/Chest: Denies cough, dyspnea, excessive phlegm production, hemoptysis, productive cough, shortness of breath at rest, shortness of breath with exertion, wheezing or other Gastrointestinal Gastrointestinal: Denies abdominal pain, coffee ground emesis, constipation, diarrhea, dyspepsia, hematemesis, hematochezia, loose stools, melena, nausea, vomiting or other Genitourinary Genitourinary: Denies burning urination, difficulty urinating, dysuria, hematuria, nocturia, urinary frequency, urinary hesitancy, urinary incontinence, urinary urgency or other Musculoskeletal Musculoskeletal: Denies arthralgias, back pain, joint pain, joint stiffness, joint swelling, myalgias, neck pain or other Neurologic Neurologic: Denies abnormal gait, abnormal speech, confusion, disequilibrium, dizziness, focal weakness, headache(s), numbness, paresthesias, seizure-like activity, seizures, syncope, tingling, tremor(s) or other Vital Signs Vital Signs Vital Signs: 03/18/24 16:23 03/18/24 17:53 Temperature 97.3 F L Temperature Source Temporal Pulse Rate 88 Respiratory Rate 16 Respiratory Effort Non-Labored Respiratory Depth Normal Respiratory Pattern Normal Blood Pressure 158/67 H Blood Pressure Mean 97 Pulse Ox 97 Oxygen Delivery Method Room Air Room Air Physical Exam Const alert, oriented x3 and no apparent distress HEENT normocephalic Eyes PERRL Neck no lymphadenopathy Resp normal respiratory effort Auscultation: rales bilateral GI normal to inspection, nondistended, normoactive bowel sounds Extremity normal to inspection Extremity Narrative: No pedal edema Results Medical Records Data Attestation: I reviewed the patient's medical records Lab / Micro Data Attestation: I reviewed the patient's lab results. 03/18/24 17:17 03/18/24 17:17 Labs: Laboratory Results - last 24 hr 03/18/24 17:17: WBC 5.8, RBC 2.77 L, Hgb 8.7 L, Hct 26.7 L, MCV 96.4, MCH 31.4, MCHC 32.6, RDW Std Deviation 49.9 H, RDW Coeff of Fior 14.2, Plt Count 212, MPV 10.4, Immature Gran % (Auto) 0.200, Neut % (Auto) 75.5 H, Lymph % (Auto) 12.2 L, Powell % (Auto) 6.5, Eos % (Auto) 5.1 H, Baso % (Auto) 0.5, Absolute Neuts (auto) 4.4, Absolute Lymphs (auto) 0.71 L, Nucleated RBC % 0, Sodium 139, Potassium 6.1 H*, Chloride 106, Carbon Dioxide 23.0, BUN 102 H*, Creatinine 8.10 H*, Est GFR (MDRD) Af Amer 7 L, Est GFR (MDRD) Non-Af 5 L, BUN/Creatinine Ratio 12.6, Glucose 283 H, Calcium 7.7 L, Phosphorus 5.8 H, Albumin 3.4 Rhythm Strip Rhythm Strip: Sinus Rhythm Rate: 90 Ectopy: None Imaging Radiology Impression Chest X-Ray 03/18/24 17:20 IMPRESSION: No acute cardiopulmonary pathology. Electronically Signed: Jefe Cesar MD at 18:03 EDT Reading Location ID and State: [facility] / [place] Tel , Service support , Assessment & Plan Assessment/Plan (1) Hyperkalemia, diminished renal excretion: PLAN: Plan 58-year-old female with past medical history of end-stage renal disease, on Tuesday dialysis, hypertension, insulin-dependent diabetes mellitus, peripheral edema, acute foot pain, presents to the ED in the setting of missed dialysis and feeling of shortness of breath and worsening edema. She is being admitted for observation and inpatient dialysis tomorrow. #ESRD on maintenance hemodialysis: -Nephrology consult -Scheduled for dialysis tomorrow morning -Volume overload related to the missed dialysis session -Satting well on room air no indication for diuretics at this time #Hypertension: Continue amlodipine 5 mg, Coreg #Dyslipidemia: Continue atorvastatin #Depression-continue bupropion 3 on 150 mg daily #Prior history of stroke: Continue Plavix 75, aspirin #Insulin-dependent diabetes mellitus: Continue home aspart insulin 6 units, glargine 20 units daily and 5 units at bedtime, insulin as per sliding scale #Hypothyroidism: Continue levothyroxine 25 mcg #Insomnia: Continue melatonin 5 mg olanzapine 5 mg at bedtime #Constipation: Continue Senokot #DVT prophylaxis: Suspect short admission, also on DAPT Charges/Coding Visit Charges Inpatient E&M: 11723 Init Hosp L2
[2024-03-18 18:32] VITALS: BP 149/75; PULSE 86; RESP 15; TEMP 36.3; O2SAT 94
[2024-03-18] MEDS: Sodium Polystyrene Sulfonate 15 GM/60 ML UDC 30 GM PO (19:20)
[2024-03-18 19:46] VITALS: BMI 29.3
[2024-03-18 21:00] VITALS: BP 162/79; PULSE 92; RESP 18; TEMP 36.7; O2SAT 95
[2024-03-18 21:43] VITALS: BP 162/79; PULSE 92
[2024-03-18] MEDS: Isosorbide DN 20 MG Tablet PO (21:43)
[2024-03-18] MEDS: hydrALAZINE 25 MG Tablet PO (21:43)
[2024-03-18] MEDS: Pramipexole Di-HCl 0.5 MG Tablet 1.5 MG PO (21:44)
[2024-03-18] MEDS: Atorvastatin Calcium 40 MG Tablet PO (21:44)
[2024-03-18] MEDS: MELATONIN 10 MG TABLET 5 MG PO (21:44)
[2024-03-18] MEDS: OLANZapine 5 MG/TAB TAB.RAPDIS PO (21:45)
[2024-03-18] MEDS: Insulin Glargine-YFGN 100 UNIT/ML Pen SC (21:56)
[2024-03-18] MEDS: Acetaminophen 325 MG Tablet 650 MG PO (22:20)
[2024-03-18 22:55] LABS: Bedside Glucose 191 mg/dL (74-106)
[2024-03-19] VITALS (12 sets, daily range): BP systolic 127–290; BP diastolic 61–89; PULSE 72–80; RESP 13–18; TEMP 36.1–36.6; O2SAT 97–99; BMI 29.5; BMI 28.5
--- NOTE | 2024-03-19 02:36 | NURSING ---
pt. wanted dialysis catheter dressing changed- stated that the occlusive was too itchy. I told her the importance of keeping a dressing on the site to prevent infection but pt. refused occulsive dressing. Did allow this nurse to place non-woven gauze overtop and tape it in place.
[2024-03-19 05:32] LABS: Absolute Lymphocyte Count 0.84 X10^3/uL (0.83-4.51); Absolute Neutrophil Count 2.9 X10^3/uL (2.0-7.7); Basophil# 0.02 X10^3/uL; Basophil% 0.4 % (0-1); Eosinophil# 0.26 X10^3/uL; Eosinophils% 5.8 % (0-5); Hematocrit 24.2 % (37-47); Hemoglobin 7.6 g/dL (12.0-15.0); Lymphocyte # 0.84 X10^3/ul (0.83-4.51); Lymphocyte % 18.7 % (19-41); Mean Corp Hgb Conc 31.4 g/dL (32-36); Mean Corpuscular Hgb 30.5 pg (27.0-32.0); Mean Corpuscular Volume 97.2 fL (81-99); Mean Platelet Vol. 10.5 fl (6.2-12.0); Monocyte# 0.49 X10^3/uL; Monocyte% 10.9 % (0-10); NRBC Flagged by Analyzer 0 % (0-5); Neutrophil # 2.87 X10^3/uL (2.7-7.7); Platelet Count 165 K/mm3 (150-450); RBC Distribution Width CV 14.3 % (11.6-14.6); RBC Distribution Width SD 50.4 fl (35.1-43.9); Red Blood Count 2.49 M/mm3 (4.2-5.4); White Blood Count 4.5 K/mm3 (4.4-11.0)
[2024-03-19 07:09] LABS: Bedside Glucose 118 mg/dL (74-106)
[2024-03-19 07:23] LABS: ALB/GLOB Ratio 0.7 RATIO (0.9-2.4); AST(SGOT) 19 U/L (15-37); Alanine Aminotransfer ALT/SGPT 18 U/L (13-56); Albumin, Serum 2.8 g/dL (3.2-5.0); Alkaline Phosphatase 185 U/L (45-117); Anion Gap 11 (5-15); BUN 110 mg/dL (7-18); BUN/Creat Ratio 13.2 RATIO (10-20); Bilirubin, Direct 0.12 mg/dL (0.00-0.30); Calcium,Total 7.1 mg/dL (8.5-10.1); Chloride 111 mmol/L (98-107); Creatinine, Serum 8.31 mg/dL (0.55-1.02); EST Glomerular Filtration Rate 5 mL/min (>60); Est Glom Filt Rate - Afr Amer 6 mL/min (>60); Estimated Creatinine Clearance 7.77 ml/min; Globulin 3.8 g/dL (2.2-4.2); Glucose 142 mg/dL (74-106); Magnesium 1.8 mg/dL (1.6-2.6); Potassium 5.4 mmol/L (3.5-5.1); Protein, Total 6.6 g/dL (6.4-8.2); Sodium Level 141 mmol/L (136-145); Thyroid Stim Hormone (TSH) 1.94 uIU/mL (0.358-3.74)
[2024-03-19 07:26] LABS: International Normalized Ratio 1.3; Prothrombin Time (Protime)PT. 16.3 SECONDS (11.7-14.9)
[2024-03-19] MEDS: 0.9% Normal Saline 1,000 ML IV.SOLN. 1000 ML OPERA.SITE (08:31)
[2024-03-19] MEDS: 0.9% Saline Lock 10 ML Syringe IV (08:32)
[2024-03-19] MEDS: PureFlow B 2K Dialysis Soln 1 BAG 6 BAG PF (08:32)
--- NOTE | 2024-03-19 08:48 | NUR.TO.PHY ---
patient has a gauze dressing over dialysis cath site. This RN read the previous note regarding the cath dressing. pt still declines tegaderm dressing against medical advice.
[2024-03-19] MEDS: Pantoprazole Sodium 40 MG Tablet PO ×2 (09:01→17:22)
[2024-03-19] MEDS: Pramipexole Di-HCl 0.5 MG Tablet 1.5 MG PO (09:01)
[2024-03-19] MEDS: Calcium Acetate 667 MG Capsule PO ×3 (09:01→17:22)
[2024-03-19] MEDS: buPROPion (XL) 150 MG TABLET.XL PO (09:02)
[2024-03-19] MEDS: Paroxetine 20 MG Tablet PO (09:02)
[2024-03-19] MEDS: Clopidogrel Bisulfate 75 MG Tablet PO (09:02)
--- NOTE | 2024-03-19 10:05 | CASEMGMT ---
RN CM Face to Face with patient for initial transition planning/care coordination assessment. RN CM introduced self and role at [facility]. Patient lying in bed, alert and oriented. Patient willing to participate in assessment and is able to answer all questions appropriately. Care providers, pharmacy, and demographics verified. PCP: Jeaneth Specialists: Gee, substance abuse prevention coordinator; Markel, accounting professor; Thierry, health services manager Preferred Pharmacy: [facility] [place] Insurance: [employer] [facility] Prescription Benefit: yes Living Will/HPOA: yes, daughter Trisha LNOK: daughter, niece Living Arrangements: Patient lives with Niece in a single story home with 3 steps and railing to enter the home. Patient states she is independent for bathing and toileting, niece helps with dressing. Transportation: [employer], [place], [facility] Van DME/HHC: Patient has shower chair, raised toilet, grab bars, walker, wheelchair, and glucometer at home. Patient has had HHC in the past but could not recall agency. Patient has been to multiple SNFs in the past. Patient states PCP was working on setting her up at [facility] for outpatient therapy last week but has not heard from them. RN CM will follow-up with [facility] that they received orders. Patient wishes to discharge home, denies need for home health at this time. Patient states she has no further needs or concerns at this time. CM to follow for discharge planning needs that may arise. Disposition Plan: Patient to discharge home with outpatient therapy, family support, and follow-up plans in place. Erika MANLEY, RN, CM
[2024-03-19] MEDS: Insulin Glargine-YFGN 100 UNIT/ML Pen 20 UNIT SC (10:09)
--- NOTE | 2024-03-19 10:22 | NURSING ---
pt educated on hyperkalemia, including diet restrictions, and importance of compliance with outpatient hemodialysis
[2024-03-19 10:31] LABS: Bedside Glucose 155 mg/dL (74-106)
[2024-03-19] MEDS: Acetaminophen 325 MG Tablet 650 MG PO (10:50)
[2024-03-19] MEDS: Epoetin Alfa epbx 10,000 UNIT/ML 10000 UNIT IV (10:59)
[2024-03-19] MEDS: Heparin 10,000 UNITS/10 ML Vial IV (11:09)
[2024-03-19] MEDS: Gabapentin 100 MG Capsule PO (11:44)
[2024-03-19] MEDS: Insulin Lispro 100 UNIT/ML INSULN.PEN 6 UNIT SC (11:44)
[2024-03-19] MEDS: Folic Acid 1 MG Tablet PO (11:44)
[2024-03-19] MEDS: Aspirin 81 MG TAB.CHEW PO (11:44)
[2024-03-19] MEDS: amLODIPine 5 MG Tablet PO (11:44)
[2024-03-19] MEDS: Ferrous Sulfate 325 MG Tablet PO (11:45)
[2024-03-19] MEDS: Insulin Lispro 100 UNIT/ML INSULN.PEN SC (11:45)
[2024-03-19 12:08] LABS: Bedside Glucose 156 mg/dL (74-106)
--- NOTE | 2024-03-19 13:23 | CASEMGMT ---
KELSIE IRELAND called [facility] to inquire about outpatient therapy orders. Per Trisha, they were working with PCP for order earlier last week but never received it. KELSIE IRELAND updated hospitalist and script received. KELSIE IRELAND faxed order for outpatient therapy to [facility] with request to call patient to schedule appointment and that patient would like to utilize the Hospital [facility]. CM will continue to follow this patient and plan for a safe discharge.
--- NOTE | 2024-03-19 14:32 | DS.PCM_ITS ---
Providers Date of Admission: 03/18/24 Date of Discharge: 03/19/24 Primary Care Physician: Dr. Raúl Eric MD Consultations 03/18/24 19:51 Consult: Nephrology Routine Consulting Provider: Mart Morrissey Reason for Consult: ESRD EMERGENT Consult: No MD Notified: Yes Date Notified: 03/18/24 Time Notified: 19:10 Method of Notification: ED Physician Initiated Reason For Visit: HYPERKALEMIA/RENAL ANASARCA/ ESRD Diagnosis Discharge Diagnosis (1) Hyperkalemia, diminished renal excretion: Status: Acute Code(s): E87.5 - Hyperkalemia Medications at Discharge Home Medications paroxetine HCl 20 mg tablet 20 mg PO DAILY DEPRESSION 07/07/21 bupropion HCl 150 mg 24 hr tablet, extended release 150 mg PO DAILY mood 02/04/22 sennosides 8.6 mg-docusate sodium 50 mg tablet (Stool Softener-Stimulant Laxative) 2 tab PO BID PRN PRN Constipation #0 tabs 04/24/22 ascorbic acid (vitamin C) 500 mg tablet (Vitamin C) 500 mg PO BID supplement 05/05/22 clopidogrel 75 mg tablet 75 mg PO DAILY prevent stroke 07/19/22 ferrous sulfate 325 mg (65 mg iron) tablet 325 mg PO .three times a week anemia 07/19/22 pantoprazole 40 mg tablet,delayed release 40 mg PO BIDCM GERD 07/19/22 insulin glargine-yfgn 100 unit/mL (3 mL) subcutaneous pen 5 unit (0.05 mL) subcut QHS blood sugar #15 mL 07/21/22 insulin lispro 100 unit/mL subcutaneous pen (Humalog KwikPen (U-100) Insulin) See Protocol subcut TIDAC #0 mL 07/21/22 cyclobenzaprine 5 mg tablet 5 mg PO TID PRN muscle spasm #21 tabs 11/26/23 gabapentin 100 mg capsule 100 mg PO .COMPLEX PRN pain 11/26/23 Mircera See Rx Instructions .Route .COMPLEX dialysis 12/16/23 Venofer iron 12/16/23 acetaminophen 325 mg capsule 325 mg PO Q4H PRN fever or pain 12/16/23 amlodipine 5 mg tablet 5 mg PO DAILY bp 12/16/23 antacid extra assorted fruit tablets 750 mg PO .every 4 hours PRN tums 12/16/23 calcitriol 0.5 mcg capsule 0.5 mcg PO .COMPLEX on dialysis 12/16/23 calcium acetate(phosphat bind) 667 mg capsule 676 mg PO TID is on dialysis 12/16/23 cloNIDine See Rx Instructions .Route .COMPLEX dialysis 12/16/23 diphenhydramine 25 mg IV itching 12/16/23 folic acid 800 mcg tablet 0.8 mg PO DAILY supplement 12/16/23 hydralazine 25 mg tablet 25 mg PO TID bp 12/16/23 insulin aspart U-100 6 unit subcut TID blood glucose 12/16/23 insulin aspart U-100 100 unit/mL (3 mL) subcutaneous pen subcut 12/16/23 insulin glargine 100 unit/mL (3 mL) subcutaneous pen (Lantus Solostar U-100 Insulin) 20 unit subcut DAILY blood glucose 12/16/23 isosorbide dinitrate 10 mg tablet 20 mg PO TID bp and heart 12/16/23 levothyroxine 25 mcg tablet 25 mcg PO DAILY thyroid 12/16/23 lidocaine-silicone, adhesive topical pain 12/16/23 loperamide 2 mg capsule (Anti-Diarrheal (loperamide)) 2 mg PO Q4H PRN loose stool 12/16/23 melatonin 5 mg capsule 5 mg PO .bedtime sleep 12/16/23 nitroglycerin 0.4 mg sublingual tablet (Nitrostat) 0.4 mg sublingual Q5M chest pain 12/16/23 olanzapine 5 mg tablet 5 mg PO QHS sleep 12/16/23 ondansetron 4 mg disintegrating tablet 4 mg PO DAILY PRN nausea and vomiting 12/16/23 pramipexole dihydrochloride 1.5 mg PO BID unknown 12/16/23 promethazine 25 mg tablet 25 mg PO Q4H PRN nausea and vomiting 12/16/23 aspirin 81 mg capsule 81 mg PO DAILY #30 caps 12/26/23 cefepime 1 gram/50 mL in dextrose 5 % intravenous piggyback 1 g IV .as directed 12/26/23 cephalexin 500 mg capsule 500 mg PO Q8H 7 days #21 caps 02/07/24 sulfamethoxazole 800 mg-trimethoprim 160 mg tablet (Bactrim DS) 1 tab PO BID 7 days #14 tabs 02/07/24 atorvastatin 40 mg tablet 40 mg PO DAILY 03/18/24 buprenorphine 5 mcg/hour weekly transdermal patch 1 patch topical QWEEK 03/18/24 carvedilol 25 mg tablet 25 mg PO BID 03/18/24 Hospital Course Operations None Procedures None Summary of Care Provided Minutes Spent on Discharge: 45 Hospital Course: Patient is a 58 y/o female with a PMH as outlined who was admitted via the ED on 03/18/2024 for shortness of breath after missing her dialysis session 2 days prior. She started feeling bloated and had generalized aches and pains as well as shortness of breath. She was saturating 94% on room air. Labs are significant for potassium of 6.1. Chest x-ray showed no acute cardiopulmonary pathology. She was admitted and managed for shortness of breath due to fluid overload in the setting of missed dialysis. Nephrology was consulted and she had dialysis on 03/19/2024. Her potassium had come down to 5.4 on 03/19/2024 and this was prior to her getting dialysis and so it definitely came down after dialysis. Patient shortness of breath improved after dialysis. There were no plans to dialyze today for 2 days and that when she was to resume her regular dialysis on 03/21/2024. Patient was therefore discharged home after dialysis on 03/19/2024. She is follow-up with her primary care doctor and to follow-up with nephrology. She was counseled to be compliant with dialysis. Patient did improve much more quickly than expected as such symptoms resolved with 1 session of dialysis. She was therefore discharged the day after admission. Patient was seen and examined prior to discharge. She felt well and had no active complaints. She had an uneventful night. Review of systems otherwise negative. Labs and vitals reviewed. Medication reviewed and reconciled. Physical Exam Const alert, oriented x3 and no apparent distress General Appearance: cooperative, comfortable and well developed Orientation / Consciousness: awake HEENT normocephalic, head/scalp atraumatic, hearing grossly normal bilaterally and moist oral mucous membranes Mouth: oral and palatal mucosa normal Eyes PERRL, EOMs intact bilaterally and conjunctivae normal Resp normal respiratory effort and no retractions Cardio regular rate, regular rhythm, S1 normal heart sound and S2 normal heart sound GI normal to inspection, nondistended, normoactive bowel sounds and soft to palpation Extremity normal to inspection, full ROM and no clubbing, cyanosis or edema Extremity Narrative: AV fistula in LUE Skin no rashes or lesions noted Neuro oriented x3, CN's II-XII intact bilaterally, moves all extremities and no focal motor deficits Sensorium / Orientation: awake Motor Exam: strength 5/5 throughout Psych affect normal Weight / BMI Weight Weight: 173 lb 11.588 oz Body Mass Index (BMI) 28.5 ABG / Lab / Microbiology Data 03/19/24 04:55 03/19/24 04:55 Laboratory: Laboratory Results - last 24 hr 03/18/24 17:17: WBC 5.8, RBC 2.77 L, Hgb 8.7 L, Hct 26.7 L, MCV 96.4, MCH 31.4, MCHC 32.6, RDW Std Deviation 49.9 H, RDW Coeff of Fior 14.2, Plt Count 212, MPV 10.4, Immature Gran % (Auto) 0.200, Neut % (Auto) 75.5 H, Lymph % (Auto) 12.2 L, Kinney % (Auto) 6.5, Eos % (Auto) 5.1 H, Baso % (Auto) 0.5, Absolute Neuts (auto) 4.4, Absolute Lymphs (auto) 0.71 L, Nucleated RBC % 0, Sodium 139, Potassium 6.1 H*, Chloride 106, Carbon Dioxide 23.0, BUN 102 H*, Creatinine 8.10 H*, Est GFR (MDRD) Af Amer 7 L, Est GFR (MDRD) Non-Af 5 L, BUN/Creatinine Ratio 12.6, G lucose 283 H, Calcium 7.7 L, Phosphorus 5.8 H, Albumin 3.4 03/18/24 21:54: POC Glucose 191 H 03/19/24 04:55: WBC 4.5, RBC 2.49 L, Hgb 7.6 L, Hct 24.2 L, MCV 97.2, MCH 30.5, MCHC 31.4 L, RDW Std Deviation 50.4 H, RDW Coeff of Fior 14.3, Plt Count 165, MPV 10.5, Immature Gran % (Auto) 0.200, Neut % (Auto) 64.0, Lymph % (Auto) 18.7 L, M real % (Auto) 10.9 H, Eos % (Auto) 5.8 H, Baso % (Auto) 0.4, Absolute Neuts (auto) 2.9, Absolute Lymphs (auto) 0.84, Nucleated RBC % 0, PT 16.3 H, INR 1.3, Sodium 141, Potassium 5.4 H, Chloride 111 H, Carbon Dioxide 19.0 L, Anion Gap 11, BUN 110 H*, Creatinine 8.31 H*, Estim Creat Clear Calc 7.77, Est GFR (MDRD) Af Amer 6 L, Est GFR (MDRD) Non-Af 5 L, BUN/Creatinine Ratio 13.2, Glucose 142 H , Calcium 7.1 L, Phosphorus 6.0 H, Magnesium 1.8, Total Bilirubin 0.30, Direct Bilirubin 0.12, AST 19, ALT 18, Alkaline Phosphatase 185 H, Total Protein 6.6, A lbumin 2.8 L, Globulin 3.8, Albumin/Globulin Ratio 0.7 L, TSH 1.94 03/19/24 06:36: POC Glucose 118 H 03/19/24 10:06: POC Glucose 155 H 03/19/24 11:26: POC Glucose 156 H Radiography Diagnostic Testing: Radiology Impression Chest X-Ray 03/18/24 17:20 IMPRESSION: No acute cardiopulmonary pathology. Electronically Signed: Jefe Cesar MD at 18:03 EDT Reading Location ID and State: [address] [place] [address] Tel , Service support , D/C Instructions Discharge Diet: Low fat / Low cholesterol Weight Bearing Status: Weight bearing as tolerated Call your doctor if you observe: Fever of 101 or Higher, Shortness of breath, Dizziness, Swelling in the ankles and Chest pain Meaningful Use Info Meaningful Use Meaningful Use Diagnoses (Choose all that apply): None applicable Ischemic Stroke Statin Dosing Therapy Reference: STATIN DOSE THERAPY REFERENCE: * Patients > 75 years receive moderate or high dose statin therapy. * Patients 75 years or YOUNGER should receive HIGH intensity statin dose unless contraindicated. You will be required to document reason for non-treatment if statin daily dose does not meet guidelines. HIGH DOSE STATIN THERAPY DAILY Atorvastatin > than or = to 40 mg Rosuvastatin > than or = to 20 mg Amlodipine + Atorvastatin > than or = to 2.5/40 mg Ezetimibe + Simvastatin 10/80 mg Simvastatin 80mg Discharge Plan Admission Admit Date/Time: 03/18/24 19:01 Primary Reason for Your Visit: shortness of breath due to missed dialysis Attending Provider: Rachel Okeefe Primary Care Provider: Raúl Eric Consulting Providers: Mart Morrissey; Billie Thompson Instructions Patient Instructions: ED Dyspnea Discharge Orders/Prescriptions Prescriptions: Continued paroxetine HCl 20 mg tablet 20 mg PO DAILY Patient Comments: TAKE 1 TABLET BY MOUTH EVERY DAY IN THE EVENING bupropion HCl 150 mg tablet extended release 24 hr 150 mg PO DAILY Patient Comments: TAKE 1 TABLET BY MOUTH EVERY DAY sennosides-docusate sodium [Stool Softener-Stimulant Laxat] 8.6-50 mg Tablet 2 tab PO BID PRN PRN (Reason: Constipation) Qty: 0 0RF ascorbic acid (vitamin C) [Vitamin C] 500 mg Tablet 500 mg PO BID clopidogrel 75 mg tablet 75 mg PO DAILY pantoprazole 40 mg tablet,delayed release (DR/EC) 40 mg PO BIDCM ferrous sulfate 325 mg (65 mg iron) tablet 325 mg PO .three times a week Patient Comments: takes three times a week, on Tuesday, and Tuesday insulin lispro [Humalog KwikPen Insulin] 100 unit/mL Insulin Pen See Protocol subcut TIDAC Qty: 0 0RF Protocol: 1. Sliding Scale Insulin Low Dosing Condition: 150-224 mg/dl = 1 unit Condition: 225-299 mg/dl = 2 units Condition: 300-374 mg/dl = 3 units Condition: 375-499 mg/dl = 4 units Condition: Greater than 449 call physician Protocol Text: - Use for Total Daily Dose of Insulin 15-27 units - Thin, elderly, renal patients LOW DOSING ALGORITHM insulin glargine-yfgn 100 unit/mL (3 mL) insulin pen 5 unit subcut QHS Qty: 15 0RF Rx Instructions: Hold if glucose less than 130 mg/dl gabapentin 100 mg capsule 100 mg PO .COMPLEX PRN (Reason: pain) Rx Instructions: 100 mg orally 3 times a week Tuesday, Tuesday and Tuesday cyclobenzaprine 5 mg tablet 5 mg PO TID PRN (Reason: muscle spasm) Qty: 21 0RF cephalexin 500 mg capsule 500 mg PO Q8H 7 Days Qty: 21 0RF sulfamethoxazole-trimethoprim [Bactrim DS] 800-160 mg tablet 1 tab PO BID 7 Days Qty: 14 0RF atorvastatin 40 mg tablet 40 mg PO DAILY carvedilol 25 mg tablet 25 mg PO BID buprenorphine 5 mcg/hour patch weekly 1 patch topical QWEEK calcium acetate(phosphat bind) 667 mg capsule 676 mg PO TID Patient Comments: TAKE 1 CAPSULE BY MOUTH THREE TIMES A DAY WITH FOOD folic acid 800 mcg tablet 0.8 mg PO DAILY Patient Comments: TAKE 1 TABLET BY MOUTH EVERY DAY levothyroxine 25 mcg tablet 25 mcg PO DAILY Patient Comments: TAKE 1 TABLET BY MOUTH EVERY DAY BEFORE BREAKFAST insulin aspart U-100 100 unit/mL (3 mL) insulin pen SUBCUT Patient Comments: PLEASE SEE ATTACHED FOR DETAILED DIRECTIONS olanzapine 5 mg tablet 5 mg PO QHS Patient Comments: TAKE 1 TABLET BY MOUTH EVERYDAY AT BEDTIME amlodipine 5 mg tablet 5 mg PO DAILY hydralazine 25 mg tablet 25 mg PO TID insulin glargine [Lantus Solostar U-100 Insulin] 100 unit/mL (3 mL) insulin pen 20 unit subcut DAILY lidocaine-silicone, adhesive topical Patient Comments: 1 patch daily melatonin 5 mg capsule 5 mg PO .bedtime insulin aspart U-100 [Novolog FlexPen U-100 Insulin] 6 unit subcut TID Patient Comments: give with meals ondansetron 4 mg tablet,disintegrating 4 mg PO DAILY PRN (Reason: nausea and vomiting) pramipexole dihydrochloride 1.5 mg PO BID isosorbide dinitrate 10 mg Tablet 20 mg PO TID acetaminophen 325 mg capsule 325 mg PO Q4H PRN (Reason: fever or pain) antacid extra assorted fruit tablets 750 mg PO .every 4 hours PRN (Reason: tums) calcitriol 0.5 mcg capsule 0.5 mcg PO .COMPLEX Rx Instructions: 0.5 mcg orally three times a week; cloNIDine See Rx Instructions .ROUTE .COMPLEX Rx Instructions: 0.1mg every 4 hours as needed diphenhydramine 25 mg IV Rx Instructions: every 30 minutes as needed. loperamide [Anti-Diarrheal (loperamide)] 2 mg capsule 2 mg PO Q4H PRN (Reason: loose stool) Rx Instructions: administer after each loose stool until symptoms controlled; do not exceed 8 mg per 24 hrs Mircera See Rx Instructions .ROUTE .COMPLEX Rx Instructions: intravenous every 2 weeks nitroglycerin [Nitrostat] 0.4 mg tablet, sublingual 0.4 mg sublingual Q5M Rx Instructions: do not exceed 3 doses per episode promethazine 25 mg tablet 25 mg PO Q4H PRN (Reason: nausea and vomiting) Venofer Rx Instructions: 50 mg one time a week. cefepime in dextrose 5 % 1 gram/50 mL piggyback 1 g IV .as directed Rx Instructions: Dose with dialysis sessions. 1gm on Tue, 2gm on , 1gm on , 2gm on Tuesday. Stop date 01/30/24. Dx: MSSA endocarditis. Weekly bmp and cbc. Fax to [phone]. aspirin 81 mg capsule 81 mg PO DAILY Qty: 30 1RF Referrals / Follow Up: Raúl Eric MD [Primary Care Provider] - Within 1 Week Mart Morrissey MD [Non-Staff] - Within 1 Week Disposition Disposition (needs filled in before D/C Order can be placed): Home, Self Care Charges/Coding Visit Charges Inpatient E&M: 37602 Disch Hosp >30min
[2024-03-19] MEDS: hydrALAZINE 25 MG Tablet PO (15:01)
[2024-03-19] MEDS: Isosorbide DN 20 MG Tablet PO (15:02)
--- NOTE | 2024-03-19 16:19 | CASEMGMT ---
KELSIE IRELAND updated by LUCRETIA that patient is interested in Palliative referral. KELSIE IRELAND updated hospitalist and order received. KELSIE IRELAND completed palliative screening tool and sent referral to [facility].
[2024-03-19] MEDS: Ondansetron ODT 4 MG Tablet PO (16:46)
[2024-03-19 17:05] LABS: Bedside Glucose 121 mg/dL (74-106)
[2024-03-19] MEDS: Carvedilol 25 MG Tablet PO (17:22)
--- NOTE | 2024-03-19 18:23 | CASEMGMT ---
Social Work - SDOH assessment Patient for social determinants of health screening. Patient receptive to speak with social worker clinical. SDOH intervention attached to this note. Patient triggered for transportation but in conversation patient expressed most concern about electric bill and affording this in the long-term. Patient also indicated that sometimes food has not lasted until patient had money to buy more. Patient is reliant on others for transportation, with the patient's niece and daughter assisting, though [facility] and [facility] van reported to assist with medical appointments. Patient reports [facility] is now set up to take patient to and from dialysis. Patient reports that any concerns regarding the house will be fixed soon as the patient is in the process of applying for a waiver service through the [facility] agency on aging. Patient reports awareness of heating and cooling assistance programs through community action, and reports has tapped into this in the past though patient's niece who lives in the home wants the utilities in the niece's name and therefore the household does not qualify for heating and cooling assistance. Patient reports plan to still follow-up with community action about concerns. Through conversation, patient did indicate that sometimes the patient tells the patient that the patient is a burden. Patient reports the daughter often encourages the patient to return back to the care home which the patient reports is wanted to try things at home again. Patient shares that she spent about 2 years at [facility] before going back home. Patient also reminisced about time in [place], and meeting the patient's whom the patient met in [place]. Patient reports that has been denied entrance into the [place], though patient has attempted approval through the [place] Department of Immigration. Patient reports has been for the last 9 years and has been to [place] 3 times for durations of 3 months, 6 months and 9 months. Supportive listening and emotional support provided. Resources-provided patient with the [employer] card which includes resources for utility help, food and meals. Provided resource list on home delivered meals. Provided information on community actions home authorization program. Transportation-patient is slated for discharge today, so this video game script writer called [facility] and spoke with Odalys. This video game script writer relayed that patient will be discharged today and at home on Tuesday for pickup to dialysis. [facility] expressed appreciation for phone call, as transportation went to patient's home today and found the patient not at home. No one from the family (or patient) called to cancel. [facility] will pick patient up on Tuesday. Patient was aware and agreeable with this video game script writer calling [facility] to confirm that patient will be home. This video game script writer explored how patient will get home today, and patient reports that her niece is working late so her daughter will be able to pick the patient up after getting off of work. Palliative care-through discussion patient discussed having chronic symptoms related to nausea, vomiting, loss of appetite, and general discomfort at home related to chronic issues. This video game script writer explored whether patient has ever spoken to palliative care services and explained a little bit about this program. Patient reports receptivity to a palliative care referral. Educated patient that palliative care is different than hospice care, where patient can still seek curative treatment. Patient reports that when living at the care home in [place], there was a recommendation at one point for hospice, but this referral was declined as patient's daughter was not ready to lose the patient yet. This video game script writer then explored with patient, what patient's goals of care are for herself. Patient reports patient's own goal of care is to get a kidney transplant and plans to speak to dialysis SW about how to get on the transplant list. *This video game script writer spoke with Erika IGLESIAS CM regarding palliative care referral. Erika collaborated with physician and referral to palliative care placed. Note, from this video game script writer's chart reviewed today this video game script writer noted patient has had 17 emergency department visits from October 21, 2023 through March 18, 2024. From these emergency department visits 3 have resulted in inpatient stays. This video game script writer updated patient, that the palliative care referral has been made and somebody would be reaching out discussed services and eligibility. Plan: Patient discharging home. -Resources for basic needs have been provided. -Transportation has been verified for dialysis on Tuesday. -Patient reports to be working with social work for at dialysis center and [facility] Home for future waiver services. -Palliative care referral pending. -FRANCISCO Salas, TRANSFER ENGINEER *This note was generated with [employer] software. It may contain incorrect words, spelling, and punctuation that were not noted in review of the chart prior to signing*
== END 2024-03-19 17:47 | disposition home or self-care (01) | DRG 640 ==
LOC: ED 18:53 → PCU 21:32
PROVIDERS: Admitting Provider Internal Medicine; Emergency Provider Emergency Medicine; PCP Family Medicine; Visit Provider Student in an Organized Health Care Education/Training Program
DX: E87.79 Other fluid overload (principal); N18.6 End stage renal disease; I12.0 Hypertensive chronic kidney disease with stage 5 chronic kidney disease or end stage renal disease; E11.22 Type 2 diabetes mellitus with diabetic chronic kidney disease; E11.42 Type 2 diabetes mellitus with diabetic polyneuropathy; Z79.4 Long term (current) use of insulin; E03.9 Hypothyroidism, unspecified; F32.A Depression, unspecified; E87.5 Hyperkalemia; I25.5 Ischemic cardiomyopathy; E78.5 Hyperlipidemia, unspecified; Z99.2 Dependence on renal dialysis; I25.10 Atherosclerotic heart disease of native coronary artery without angina pectoris; I25.2 Old myocardial infarction; M79.604 Pain in right leg; M79.605 Pain in left leg; M79.672 Pain in left foot; S91.302A Unspecified open wound, left foot, initial encounter; M79.671 Pain in right foot; K59.00 Constipation, unspecified; X58.XXXA Exposure to other specified factors, initial encounter; G47.00 Insomnia, unspecified; G89.29 Other chronic pain; Z79.82 Long term (current) use of aspirin; Z79.02 Long term (current) use of antithrombotics/antiplatelets; Z79.899 Other long term (current) drug therapy; Z79.890 Hormone replacement therapy; Z95.5 Presence of coronary angioplasty implant and graft; Z86.73 Personal history of transient ischemic attack (TIA), and cerebral infarction without residual deficits
CPT/HCPCS: 36415; 71045; 73630; 80053; 80069; 82248; 82962; 83735; 84100; 84443; 85025; 85610; 90937; 93005; 97802; 99282; 99283; J7030; A4216; G0257; Q5106

== ENCOUNTER 2024-03-25 15:07 | Observation (INO) | payer MEDICARE, MEDICAID, SELFPAY ==
[2018-09-21 13:23] VITALS: BMI 29.3
[2024-03-25 15:08] VITALS: BP 113/53; PULSE 83; RESP 30; TEMP 35.7; O2SAT 97; BMI 29.9
--- NOTE | 2024-03-25 15:16 | EKG12_ITS ---
Test Reason : UNRESPONSIVE Blood Pressure : / mmHG Vent. Rate : 079 BPM Atrial Rate : 079 BPM P-R Int : 158 ms QRS Dur : 092 ms QT Int : 434 ms P-R-T Axes : 016 009 -14 degrees QTc Int : 497 ms Normal sinus rhythm Abnormal ECG Confirmed by OTTO DELVALLE, DOMINIQUE ([id number]), editor school photograph HARINI PHAM ([id number]) on 03/26/2024 10:05:41 AM Referred By: Confirmed By:DOMINIQUE MENJIVAR MD
--- NOTE | 2024-03-25 15:16 | CT_ITS ---
STUDY: CT BRAIN WITHOUT CONTRAST REASON FOR EXAM: Female, 58 years old. Mental Status Change Individualized dose optimization techniques were used for this CT. TECHNIQUE: Transaxial CT imaging of the brain was performed without administration of intravenous contrast material. COMPARISON: 02/29/2024 FINDINGS: There are calcifications around the carotid artery. These are noted in the cavernous carotid arteries. Normal calvarium. Normal soft tissues. 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 Old infarct in the diffusion of the right MCA. There is mild cerebral atrophy with widening of the extra-axial spaces and ventricular dilatation. There are areas of decreased attenuation within the white matter tracts of the supratentorial brain, consistent with microvascular disease changes. Normal basal ganglia and thalami. Normal brainstem. There is mild cerebellar atrophy. There is no intracranial hemorrhage. There are no findings of an acute ischemic infarction. Normal visualized paranasal sinuses. ASPECTS Score for Acute Strokes: 07/19 CT/Brain/Head without Contrast IMPRESSION: There are no acute findings. Chronic involutional changes of the brain. Electronically Signed: Dallas Arndt MD at 16:02 EDT ,
--- NOTE | 2024-03-25 15:17 | EX.ED.DYSGE1 ---
HPI History of Present Illness Chief Complaint: Alt LOC Narrative Narrative: History and physical is limited secondary to change in mental status. Patient presents via EMS with decreased mental status and drowsiness. Last known well time was about 2 hours ago according to EMS. Caregiver called EMS because patient is extremely drowsy and sleepy. She has multiple complaints ranging from cough to headache. She states she last had her dialysis on Tuesday, but when asked what day it is she says I do not know. In pursuit of other symptoms, she cannot really say how long her symptoms have been going on. She falls asleep during history, but is easily awakened. [facility] Medical History ESRD on dialysis Carotid artery stenosis MSSA bacteremia Chronic anemia ESRD on hemodialysis Osteomyelitis End stage renal disease Anemia in chronic illness Type 2 diabetes mellitus Foot osteomyelitis, left Chronic renal disease, stage 4, severely decreased glomerular filtration rate (GFR) between 15-29 mL/min/1.73 square meter Acute on chronic anemia Chronic ulcer of right foot with necrosis of bone Chronic kidney disease, stage 4 (severe) Diabetes mellitus with diabetic polyneuropathy CRF (chronic renal failure) Diabetic foot ulcers Cellulitis of both lower extremities Chronic kidney disease, stage 3b Osteomyelitis of metatarsal Charcot's joint, right ankle and foot Charcot's joint, left ankle and foot Cellulitis Acute lumbar radiculopathy Essential hypertension Adult failure to thrive Type 2 diabetes mellitus with diabetic polyneuropathy Elevated troponin COVID-19 (08/28/21) Chronic ulcer of right leg with fat layer exposed Ulcer of left foot with fat layer exposed Chronic ulcer of right foot with fat layer exposed Hyperparathyroidism, secondary renal Iron deficiency anemia Anemia due to chronic illness Stage 4 chronic kidney disease Bilateral edema of lower extremity Chronic foot pain Chronic ulcer of right foot with necrosis of muscle Non-pressure chronic 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 layer exposed Debility Charcot's joint of right foot Diabetes Non-smoker Myocardial infarct Hypertension TIA (transient ischemic attack) Amputation foot, bilat Non-pressure chronic ulcer of other part of left foot with fat layer exposed Type 2 diabetes mellitus with diabetic polyneuropathy 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 Ulcer of left foot with necrosis of muscle Chronic renal insufficiency Ulcer of left foot with muscle involvement without evidence of necrosis Anxiety and depression Diabetic infection of left foot Delayed wound healing Non-compliance Osteomyelitis of left foot Essential (primary) hypertension Diabetic polyneuropathy Ischemic cardiomyopathy Normocytic anemia Obesity (BMI 30.0-34.9) Type 2 diabetes mellitus with diabetic polyneuropathy Acquired varus deformity of left foot Acquired varus deformity of right foot Chronic ulcer of left foot with fat layer exposed Ulcer of right lower extremity with fat layer exposed Atherosclerosis of [place] coronary artery of [place] heart without angina pectoris Hemoglobin A1c greater than 9.0% Diabetic ulcer of right ankle NSTEMI (non-ST elevated myocardial infarction) (09/20/18) GERD (gastroesophageal reflux disease) HLD (hyperlipidemia) Back pain, chronic Diabetic foot ulcer associated with type 2 diabetes mellitus RLS (restless legs syndrome) Home Medications ?Medication ?Instructions ?Recorded ?Last Taken ?Type paroxetine HCl 20 mg tablet 20 mg PO DAILY DEPRESSION 07/07/21 04/07/22 History bupropion HCl 150 mg 24 hr tablet, 150 mg PO DAILY mood 02/04/22 04/07/22 History extended release sennosides 8.6 mg-docusate sodium 2 tab PO BID PRN PRN Constipation 04/24/22 Unknown Rx 50 mg tablet (Stool #0 tabs Softener-Stimulant Laxative) ascorbic acid (vitamin C) 500 mg 500 mg PO BID supplement 05/05/22 Unknown History tablet (Vitamin C) clopidogrel 75 mg tablet 75 mg PO DAILY prevent stroke 07/19/22 Unknown History ferrous sulfate 325 mg (65 mg 325 mg PO .three times a week 07/19/22 Unknown History iron) tablet anemia pantoprazole 40 mg tablet,delayed 40 mg PO BIDCM GERD 07/19/22 Unknown History release insulin glargine-yfgn 100 unit/mL 5 unit (0.05 mL) subcut QHS blood 07/21/22 Unknown Rx (3 mL) subcutaneous pen sugar #15 mL insulin lispro 100 unit/mL See Protocol subcut TIDAC #0 mL 07/21/22 Unknown Rx subcutaneous pen (Humalog KwikPen (U-100) Insulin) cyclobenzaprine 5 mg tablet 5 mg PO TID PRN muscle spasm #21 11/26/23 Unknown Rx tabs gabapentin 100 mg capsule 100 mg PO .COMPLEX PRN pain 11/26/23 Unknown History Mircera See Rx Instructions .Route 12/16/23 Unknown History .COMPLEX dialysis Venofer iron 12/16/23 Unknown History acetaminophen 325 mg capsule 325 mg PO Q4H PRN fever or pain 12/16/23 Unknown History amlodipine 5 mg tablet 5 mg PO DAILY bp 12/16/23 Unknown History antacid extra assorted fruit 750 mg PO .every 4 hours PRN tums 12/16/23 Unknown History tablets calcitriol 0.5 mcg capsule 0.5 mcg PO .COMPLEX on dialysis 12/16/23 Unknown History calcium acetate(phosphat bind) 667 676 mg PO TID is on dialysis 12/16/23 Unknown History mg capsule cloNIDine See Rx Instructions .Route 12/16/23 Unknown History .COMPLEX dialysis diphenhydramine 25 mg IV itching 12/16/23 Unknown History folic acid 800 mcg tablet 0.8 mg PO DAILY supplement 12/16/23 Unknown History hydralazine 25 mg tablet 25 mg PO TID bp 12/16/23 Unknown History insulin aspart U-100 6 unit subcut TID blood glucose 12/16/23 Unknown History insulin aspart U-100 100 unit/mL subcut 12/16/23 Unknown History (3 mL) subcutaneous pen insulin glargine 100 unit/mL (3 20 unit subcut DAILY blood glucose 12/16/23 Unknown History mL) subcutaneous pen (Lantus Solostar U-100 Insulin) isosorbide dinitrate 10 mg tablet 20 mg PO TID bp and heart 12/16/23 Unknown History levothyroxine 25 mcg tablet 25 mcg PO DAILY thyroid 12/16/23 Unknown History lidocaine-silicone, adhesive topical pain 12/16/23 Unknown History loperamide 2 mg capsule 2 mg PO Q4H PRN loose stool 12/16/23 Unknown History (Anti-Diarrheal (loperamide)) melatonin 5 mg capsule 5 mg PO .bedtime sleep 12/16/23 Unknown History nitroglycerin 0.4 mg sublingual 0.4 mg sublingual Q5M chest pain 12/16/23 Unknown History tablet (Nitrostat) olanzapine 5 mg tablet 5 mg PO QHS sleep 12/16/23 Unknown History ondansetron 4 mg disintegrating 4 mg PO DAILY PRN nausea and 12/16/23 Unknown History tablet vomiting pramipexole dihydrochloride 1.5 mg PO BID unknown 12/16/23 Unknown History promethazine 25 mg tablet 25 mg PO Q4H PRN nausea and 12/16/23 Unknown History vomiting aspirin 81 mg capsule 81 mg PO DAILY #30 caps 12/26/23 Unknown Rx cefepime 1 gram/50 mL in dextrose 1 g IV .as directed 12/26/23 Unknown Rx 5 % intravenous piggyback cephalexin 500 mg capsule 500 mg PO Q8H 7 days #21 caps 02/07/24 Unknown Rx sulfamethoxazole 800 1 tab PO BID 7 days #14 tabs 02/07/24 Unknown Rx mg-trimethoprim 160 mg tablet (Bactrim DS) atorvastatin 40 mg tablet 40 mg PO DAILY 03/18/24 Unknown History buprenorphine 5 mcg/hour weekly 1 patch topical QWEEK 03/18/24 Unknown History transdermal patch carvedilol 25 mg tablet 25 mg PO BID 03/18/24 Unknown History Allergy/AdvReac Type Severity Reaction Status Date / Time Penicillins Allergy swelling Verified 03/18/24 20:05 in throat vancomycin Allergy Itching Verified 03/18/24 20:05 metronidazole AdvReac Nausea Verified 03/18/24 20:05 oxycodone (From OxyContin) AdvReac Shortness Verified 03/18/24 20:05 of breath Family History Mother Diabetes CVA (cerebral vascular accident) Brother CAD (coronary artery disease) CABG X 3 Cancer testicular Diabetes Brother CAD (coronary artery disease) CABG X3 Diabetes Brother CAD (coronary artery disease) Stents Diabetes Sister CAD (coronary artery disease) CABG x 3 CVA (cerebral vascular accident) Diabetes Surgical History History of History of foot surgery History of bilateral carpal tunnel release History of rotator cuff surgery History of coronary artery stent placement (12/31/20) Social History household members: none number of children: 2 current occupational status: disabled Smoking Status: Never smoker alcohol intake: never substance use type: does not use caffeine: Yes Type: carbonated beverages Number of servings: 2 ROS ROS ED Review of Systems ROS Unobtainable: due to mental status EXAM Physical Exam Narrative Exam Narrative: Afebrile. Vital signs noted. HEENT: Normocephalic. Atraumatic. PERRL, EOMI. Neck soft and supple. No point tenderness or step off. Cardiovascular: Regular rate and rhythm. No murmurs, rubs, or gallops appreciated. Respiratory: Mild tachypnea. Lungs clear to auscultation bilaterally anteriorly. Gastrointestinal: Abdomen soft, nontender, with normoactive bowel sounds. No rebound or guarding. Neurological: Intermittently awake. Drowsy, nonfocal, nonlateralizing. Skin: No rash. Normal color. No pallor. Musculoskeletal: No pedal edema. Full range of motion extremities. Const Vital Signs: 03/25/24 15:08 Temperature 96.2 F L Temperature Source Temporal Pulse Rate 83 Respiratory Rate 30 H Blood Pressure 113/53 L Blood Pressure Mean 73 Pulse Ox 97 Oxygen Delivery Method Room Air MDM MDM MDM Narrative Medical decision making narrative: In the differential diagnosis is drug-induced drowsiness as it was reported that the patient took an extra gabapentin today. She may have an electrolyte imbalance although she completed her dialysis on Tuesday, 2 days ago and is not due until tomorrow. She could have hepatic encephalopathy although the history and physical does not necessarily support this. She may be CO2 retaining as well. Lower on the differential would be intracranial hemorrhage. Comprehensive workup was pursued. EKG was obtained and interpreted by myself independently as normal sinus rhythm at 79 bpm without ectopy or acute ST changes. No STEMI. QTc slightly prolonged at 497 ms. I reviewed her laboratory work and she has normal white count of 5.1, hemoglobin stable at 10.4 with normal platelet count of 266. Electrolyte panel is grossly unremarkable with a normal sodium of 135 and potassium of 4.5, BUN elevated at 50 with creatinine 7.25 consistent with her end-stage renal disease. Although she stated that she went to dialysis on Tuesday, it was reported by EMS that she had missed dialysis. Her glucoses slightly elevated at 131 with a normal anion gap of 11. With the thought of hepatic encephalopathy I obtained an ammonia which is normal at 20. CT of the brain was obtained and I reviewed the radiology report, there is no acute hemorrhage or mass. There are chronic involutional changes. AST and ALT are within normal limits. Urinalysis was obtained by catheterization and there is no evidence of infection that would cause her mental status change. To look for CO2 retention, I obtained a venous blood gas which shows a pH of 7.46 with a pCO2 of 39.5. At this point in time, I am unsure as to the cause of her mental status. She had told the RN that she took extra gabapentin today. It was also reported by the RN that she no longer receives prescriptions for narcotic pain medication. Repeat examination shows her very drowsy. I will discuss the patient with the hospitalist for observation for her mental status change and extreme drowsiness. She is in stable condition. History & Record Review Additional record(s) reviewed:: Prior ED visit and Prior labs Lab Data Attestation: I reviewed the patient's lab results. Labs: Laboratory Results - last 24 hr 03/25/24 03/25/24 03/25/24 15:16 15:43 Unknown WBC 5.1 RBC 3.39 L Hgb 10.4 L Hct 33.6 L MCV 99.1 H MCH 30.7 MCHC 31.0 L RDW Std Deviation 51.1 H RDW Coeff of Fior 14.5 Plt Count 266 MPV 10.5 Immature Gran % (Auto) 0.400 Neut % (Auto) 64.5 Lymph % (Auto) 22.1 [place] % (Auto) 8.1 Eos % (Auto) 4.3 Baso % (Auto) 0.6 Absolute Neuts (auto) 3.3 Absolute Lymphs (auto) 1.12 Nucleated RBC % 0 Sodium 137 Potassium 4.5 Chloride 102 Carbon Dioxide 24.0 Anion Gap 11 BUN 50 H Creatinine 7.25 H Estim Creat Clear Calc 8.93 Est GFR (MDRD) Af Amer 7 L Est GFR (MDRD) Non-Af 6 L BUN/Creatinine Ratio 6.9 L Glucose 131 H Calcium 8.3 L Total Bilirubin 0.40 AST 33 ALT 29 Alkaline Phosphatase 230 H Ammonia 20.0 Total Protein 8.2 Albumin 3.7 Globulin 4.5 H Albumin/Globulin Ratio 0.8 L Urine Color Yellow Urine Clarity Sl. Cloudy Urine pH 5.0 Ur Specific [place] 1.015 Urine Protein 500 H Urine Glucose (UA) Normal Urine Ketones Negative Urine Occult Blood 25 H Urine Nitrite Negative Urine Bilirubin 1 H Urine Urobilinogen 1 H Ur Leukocyte Esterase 25 H Urine RBC 0 SEEN Urine WBC 0-5 SEEN Ur Squamous Epith Cells 0-5 SEEN Amorphous Sediment 2+ Urine Bacteria 0 SEEN Urine Mucus 0 SEEN Urine Opiates Screen NEGATIVE Urine Methadone Screen NEGATIVE Ur Barbiturates Screen NEGATIVE Ur Phencyclidine Scrn NEGATIVE Ur Amphetamines Screen NEGATIVE MDMA (Ecstasy) Screen NEGATIVE U Benzodiazepines Scrn NEGATIVE Urine Cocaine Screen NEGATIVE U Cannabinoids Screen NEGATIVE Ur Drug Screen Comment ABG Data ABG results: ABG 03/25/24 15:42 Specimen Type SHAUN Sample Site Not entered VBG pH 7.47 H VBG pO2 48 H VBG HCO3 29 H VBG Total CO2 30 VBG O2 Sat (Calc) 86 H VBG Base Excess 5 H POC Mix VBG pCO2 Pt Tmp 39.5 L O2 Delivery Device Room Air Radiography Diagnostic Testing: Clinical Impression(s) from Imaging Studies Brain CT 03/25/24 15:16 IMPRESSION: There are no acute findings. Chronic involutional changes of the brain. Electronically Signed: Dallas Arndt MD at 16:02 EDT , Chest X-Ray 03/25/24 15:50 IMPRESSION: No acute findings in the chest. Electronically Signed: Dallas Arndt MD at 16:03 EDT , Management Discussion w/another healthcare provider: Hospitalist (Dr. Thompson) Discharge Plan Dx/Rx/DC Orders Clinical Impression: Mental status, decreased, Drowsiness, ESRD (end stage renal disease) on dialysis Disposition Disposition: Acute Care Hospital [facility]
[2024-03-25 15:25] LABS: Absolute Lymphocyte Count 1.12 X10^3/uL (0.83-4.51); Absolute Neutrophil Count 3.3 X10^3/uL (2.0-7.7); Basophil# 0.03 X10^3/uL; Basophil% 0.6 % (0-1); Eosinophil# 0.22 X10^3/uL; Eosinophils% 4.3 % (0-5); Hematocrit 33.6 % (37-47); Hemoglobin 10.4 g/dL (12.0-15.0); Lymphocyte # 1.12 X10^3/ul (0.83-4.51); Lymphocyte % 22.1 % (19-41); Mean Corpuscular Hgb 30.7 pg (27.0-32.0); Mean Corpuscular Volume 99.1 fL (81-99); Mean Platelet Vol. 10.5 fl (6.2-12.0); Monocyte# 0.41 X10^3/uL; Monocyte% 8.1 % (0-10); NRBC Flagged by Analyzer 0 % (0-5); Neutrophil # 3.26 X10^3/uL (2.7-7.7); Neutrophil % 64.5 % (47-70); Platelet Count 266 K/mm3 (150-450); RBC Distribution Width CV 14.5 % (11.6-14.6); RBC Distribution Width SD 51.1 fl (35.1-43.9); Red Blood Count 3.39 M/mm3 (4.2-5.4); White Blood Count 5.1 K/mm3 (4.4-11.0)
[2024-03-25 15:48] LABS: Blood Gas Specimen Type VEN; O2 Delivery Device Room Air; SITE Not entered; VBG BASE EXCESS 5 mmol/L (-1.0-3.5); VBG Bicarbonate 29 mmol/L (22-26); VBG PO2 48 mmHg (25-40); VBG SO2 86 % (50-70); VBG TCO2 30 mmol/L (23-33); VBG pCO2 39.5 mmHg (41-51); VBG pH 7.47 (7.32-7.42)
[2024-03-25 15:48] LABS: Bacteria 0 SEEN /hpf (None Seen); Mucous, Urine 0 SEEN /hpf (<or=2+); Red Blood Cells-Urine 0 SEEN /hpf (0-5)
[2024-03-25 15:50] LABS: ALB/GLOB Ratio 0.8 RATIO (0.9-2.4); AST(SGOT) 33 U/L (15-37); Alanine Aminotransfer ALT/SGPT 29 U/L (13-56); Albumin, Serum 3.7 g/dL (3.2-5.0); Alkaline Phosphatase 230 U/L (45-117); Anion Gap 11 (5-15); BUN 50 mg/dL (7-18); BUN/Creat Ratio 6.9 RATIO (10-20); Calcium,Total 8.3 mg/dL (8.5-10.1); Chloride 102 mmol/L (98-107); Creatinine, Serum 7.25 mg/dL (0.55-1.02); EST Glomerular Filtration Rate 6 mL/min (>60); Est Glom Filt Rate - Afr Amer 7 mL/min (>60); Estimated Creatinine Clearance 8.93 ml/min; Globulin 4.5 g/dL (2.2-4.2); Glucose 131 mg/dL (74-106); Potassium 4.5 mmol/L (3.5-5.1); Protein, Total 8.2 g/dL (6.4-8.2); Sodium Level 137 mmol/L (136-145)
--- NOTE | 2024-03-25 15:50 | RAD_ITS ---
EXAM: XR CHEST, 1 VIEW CLINICAL INDICATION: Cough TECHNIQUE: Frontal view of the chest. COMPARISON: 6.9.24 FINDINGS: LUNGS AND PLEURAL SPACES: Unremarkable. No consolidation or edema. No pneumothorax. No effusion. HEART: Enlarged heart. MEDIASTINUM: Central airways and mediastinal contour are unremarkable. BONES/JOINTS: Unremarkable. No acute fracture. SOFT TISSUES: Unremarkable. VASCULATURE: Left vascular line. Tip in the right atrium. UPPER ABDOMEN: Elevated right hemidiaphragm. RAD/Chest 1 View (Portable) IMPRESSION: No acute findings in the chest. Electronically Signed: Dallas Arndt MD at 16:03 EDT ,
[2024-03-25 15:51] LABS: Color, Urine Yellow (Yellow); Glucose, Dipstick Normal (Normal); Ketone-Dipstick Negative (Negative); Leukocyte Esterase-Dipstick 25 /ul (Negative); Nitrite-Dipstick Negative (Negative); Occult Blood-Urine 25 /ul (Negative); Protein-Dipstick 500 mg/dl (Negative); Specific Gravity, Urine 1.015 (1.002-1.030); Urine Clarity Sl. Cloudy (Clear); Urine Urobilinogen 1 mg/dl (Normal)
[2024-03-25 15:57] LABS: Urine Bilirubin Dipstick 1 mg/dL (Negative)
[2024-03-25 16:02] LABS: Amorphous Sediment 2+; Squamous Epithelial Cells - UA 0-5 SEEN /hpf (5-10); White Blood Cells 0-5 SEEN /hpf (0-5)
[2024-03-25 16:31] LABS: Amphetamine Urine VISTA NEGATIVE (<1000 ng/mL); Barbiturate Urine VISTA NEGATIVE (< 200 ng/mL); Benzodiazepine Urine VISTA NEGATIVE (< 200 ng/mL); Cocaine Urine VISTA NEGATIVE (< 300 ng/mL); Ecstacy Urine VISTA NEGATIVE (< 500 ng/mL); Methadone Urine VISTA NEGATIVE (< 300 ng/mL); PCP Urine VISTA NEGATIVE (< 25 ng/mL); THC Urine VISTA NEGATIVE (< 50 ng/mL); Vista UDS pH Range 5
--- NOTE | 2024-03-25 16:59 | PCM.HP.STD ---
HPI - General General Date of Admission: 03/25/24 Date of Service: 03/25/24 Chief Complaint: Drowsiness HPI Narrative DIONY ROCHA, is a 58 F who presents to the ED with worsening drowsiness. According to the EMS she was last well about 2 hours back when her caregiver called that she is extremely drowsy and sleepy. In the ED she endorsed multiple complaints ranging from cough to headache but was disoriented to time and place. Per the caregiver she had missed her dialysis session on Tuesday. She was recently admitted to [facility] on 03/18/2024 with concerns of shortness of breath in the setting of missed dialysis and was found to have a potassium of 6.1 at the time. Her symptoms improved after 1 session of dialysis and she was discharged home with plan for continuing outpatient dialysis. She is not able to provide any history today and was extremely drowsy during our interview. [facility] Medical History ESRD on dialysis Carotid artery stenosis MSSA bacteremia Chronic anemia ESRD on hemodialysis Osteomyelitis End stage renal disease Anemia in chronic illness Type 2 diabetes mellitus Foot osteomyelitis, left Chronic renal disease, stage 4, severely decreased glomerular filtration rate (GFR) between 15-29 mL/min/1.73 square meter Acute on chronic anemia Chronic ulcer of right foot with necrosis of bone Chronic kidney disease, stage 4 (severe) Diabetes mellitus with diabetic polyneuropathy CRF (chronic renal failure) Diabetic foot ulcers Cellulitis of both lower extremities Chronic kidney disease, stage 3b Osteomyelitis of metatarsal Charcot's joint, right ankle and foot Charcot's joint, left ankle and foot Cellulitis Acute lumbar radiculopathy Essential hypertension Adult failure to thrive Type 2 diabetes mellitus with diabetic polyneuropathy Elevated troponin COVID-19 (08/28/21) Chronic ulcer of right leg with fat layer exposed Ulcer of left foot with fat layer exposed Chronic ulcer of right foot with fat layer exposed Hyperparathyroidism, secondary renal Iron deficiency anemia Anemia due to chronic illness Stage 4 chronic kidney disease Bilateral edema of lower extremity Chronic foot pain Chronic ulcer of right foot with necrosis of muscle Non-pressure chronic 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 layer exposed Debility Charcot's joint of right foot Diabetes Non-smoker Myocardial infarct Hypertension TIA (transient ischemic attack) Amputation foot, bilat Non-pressure chronic ulcer of other part of left foot with fat layer exposed Type 2 diabetes mellitus with diabetic polyneuropathy 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 Ulcer of left foot with necrosis of muscle Chronic renal insufficiency Ulcer of left foot with muscle involvement without evidence of necrosis Anxiety and depression Diabetic infection of left foot Delayed wound healing Non-compliance Osteomyelitis of left foot Essential (primary) hypertension Diabetic polyneuropathy Ischemic cardiomyopathy Normocytic anemia Obesity (BMI 30.0-34.9) Type 2 diabetes mellitus with diabetic polyneuropathy Acquired varus deformity of left foot Acquired varus deformity of right foot Chronic ulcer of left foot with fat layer exposed Ulcer of right lower extremity with fat layer exposed Atherosclerosis of [place] coronary artery of [place] heart without angina pectoris Hemoglobin A1c greater than 9.0% Diabetic ulcer of right ankle NSTEMI (non-ST elevated myocardial infarction) (09/20/18) GERD (gastroesophageal reflux disease) HLD (hyperlipidemia) Back pain, chronic Diabetic foot ulcer associated with type 2 diabetes mellitus RLS (restless legs syndrome) Home Medications ?Medication ?Instructions ?Recorded ?Last Taken ?Type paroxetine HCl 20 mg tablet 20 mg PO DAILY DEPRESSION 07/07/21 04/07/22 History bupropion HCl 150 mg 24 hr tablet, 150 mg PO DAILY mood 02/04/22 04/07/22 History extended release sennosides 8.6 mg-docusate sodium 2 tab PO BID PRN PRN Constipation 04/24/22 Unknown Rx 50 mg tablet (Stool #0 tabs Softener-Stimulant Laxative) ascorbic acid (vitamin C) 500 mg 500 mg PO BID supplement 05/05/22 Unknown History tablet (Vitamin C) clopidogrel 75 mg tablet 75 mg PO DAILY prevent stroke 07/19/22 Unknown History ferrous sulfate 325 mg (65 mg 325 mg PO .three times a week 07/19/22 Unknown History iron) tablet anemia pantoprazole 40 mg tablet,delayed 40 mg PO BIDCM GERD 07/19/22 Unknown History release insulin glargine-yfgn 100 unit/mL 5 unit (0.05 mL) subcut QHS blood 07/21/22 Unknown Rx (3 mL) subcutaneous pen sugar #15 mL insulin lispro 100 unit/mL See Protocol subcut TIDAC #0 mL 07/21/22 Unknown Rx subcutaneous pen (Humalog KwikPen (U-100) Insulin) cyclobenzaprine 5 mg tablet 5 mg PO TID PRN muscle spasm #21 11/26/23 Unknown Rx tabs gabapentin 100 mg capsule 100 mg PO .COMPLEX PRN pain 11/26/23 Unknown History Mircera See Rx Instructions .Route 12/16/23 Unknown History .COMPLEX dialysis Venofer iron 12/16/23 Unknown History acetaminophen 325 mg capsule 325 mg PO Q4H PRN fever or pain 12/16/23 Unknown History amlodipine 5 mg tablet 5 mg PO DAILY bp 12/16/23 Unknown History antacid extra assorted fruit 750 mg PO .every 4 hours PRN tums 12/16/23 Unknown History tablets calcitriol 0.5 mcg capsule 0.5 mcg PO .COMPLEX on dialysis 12/16/23 Unknown History calcium acetate(phosphat bind) 667 676 mg PO TID is on dialysis 12/16/23 Unknown History mg capsule cloNIDine See Rx Instructions .Route 12/16/23 Unknown History .COMPLEX dialysis diphenhydramine 25 mg IV itching 12/16/23 Unknown History folic acid 800 mcg tablet 0.8 mg PO DAILY supplement 12/16/23 Unknown History hydralazine 25 mg tablet 25 mg PO TID bp 12/16/23 Unknown History insulin aspart U-100 6 unit subcut TID blood glucose 12/16/23 Unknown History insulin aspart U-100 100 unit/mL subcut 12/16/23 Unknown History (3 mL) subcutaneous pen insulin glargine 100 unit/mL (3 20 unit subcut DAILY blood glucose 12/16/23 Unknown History mL) subcutaneous pen (Lantus Solostar U-100 Insulin) isosorbide dinitrate 10 mg tablet 20 mg PO TID bp and heart 12/16/23 Unknown History levothyroxine 25 mcg tablet 25 mcg PO DAILY thyroid 12/16/23 Unknown History lidocaine-silicone, adhesive topical pain 12/16/23 Unknown History loperamide 2 mg capsule 2 mg PO Q4H PRN loose stool 12/16/23 Unknown History (Anti-Diarrheal (loperamide)) melatonin 5 mg capsule 5 mg PO .bedtime sleep 12/16/23 Unknown History nitroglycerin 0.4 mg sublingual 0.4 mg sublingual Q5M chest pain 12/16/23 Unknown History tablet (Nitrostat) olanzapine 5 mg tablet 5 mg PO QHS sleep 12/16/23 Unknown History ondansetron 4 mg disintegrating 4 mg PO DAILY PRN nausea and 12/16/23 Unknown History tablet vomiting pramipexole dihydrochloride 1.5 mg PO BID unknown 12/16/23 Unknown History promethazine 25 mg tablet 25 mg PO Q4H PRN nausea and 12/16/23 Unknown History vomiting aspirin 81 mg capsule 81 mg PO DAILY #30 caps 12/26/23 Unknown Rx cefepime 1 gram/50 mL in dextrose 1 g IV .as directed 12/26/23 Unknown Rx 5 % intravenous piggyback cephalexin 500 mg capsule 500 mg PO Q8H 7 days #21 caps 02/07/24 Unknown Rx sulfamethoxazole 800 1 tab PO BID 7 days #14 tabs 02/07/24 Unknown Rx mg-trimethoprim 160 mg tablet (Bactrim DS) atorvastatin 40 mg tablet 40 mg PO DAILY 03/18/24 Unknown History buprenorphine 5 mcg/hour weekly 1 patch topical QWEEK 03/18/24 Unknown History transdermal patch carvedilol 25 mg tablet 25 mg PO BID 03/18/24 Unknown History Allergy/AdvReac Type Severity Reaction Status Date / Time Penicillins Allergy swelling Verified 03/18/24 20:05 in throat vancomycin Allergy Itching Verified 03/18/24 20:05 metronidazole AdvReac Nausea Verified 03/18/24 20:05 oxycodone (From OxyContin) AdvReac Shortness Verified 03/18/24 20:05 of breath Family History Mother Diabetes CVA (cerebral vascular accident) Brother CAD (coronary artery disease) CABG X 3 Cancer testicular Diabetes Brother CAD (coronary artery disease) CABG X3 Diabetes Brother CAD (coronary artery disease) Stents Diabetes Sister CAD (coronary artery disease) CABG x 3 CVA (cerebral vascular accident) Diabetes Surgical History History of History of foot surgery History of bilateral carpal tunnel release History of rotator cuff surgery History of coronary artery stent placement (12/31/20) Social History household members: none number of children: 2 current occupational status: disabled Smoking Status: Never smoker alcohol intake: never substance use type: does not use caffeine: Yes Type: carbonated beverages Number of servings: 2 ROS Review of Systems ROS Unobtainable: due to mental condition Vital Signs Vital Signs Vital Signs: 03/25/24 15:08 Temperature 96.2 F L Temperature Source Temporal Pulse Rate 83 Respiratory Rate 30 H Blood Pressure 113/53 L Blood Pressure Mean 73 Pulse Ox 97 Oxygen Delivery Method Room Air Weight Weight: 180 lb Body Mass Index (BMI) 29.9 Physical Exam Const Constitutional Narrative: Drowsy but arousable, AO x 1 Orientation / Consciousness: lethargic HEENT normocephalic Eyes PERRL Neck no lymphadenopathy Resp normal respiratory effort and no retractions Cardio regular rate and regular rhythm GI normal to inspection, nondistended, normoactive bowel sounds Neuro moves all extremities and no focal motor deficits Neuro Narrative: Drowsy but arousable, protecting airway Sensorium / Orientation: oriented to person Results Medical Records Data Attestation: I reviewed the patient's medical records Lab / Micro Data Attestation: I reviewed the patient's lab results. 03/25/24 15:16 03/25/24 15:16 Labs: Laboratory Results - last 24 hr 03/25/24 15:16: WBC 5.1, RBC 3.39 L, Hgb 10.4 L, Hct 33.6 L, MCV 99.1 H, MCH 30.7, MCHC 31.0 L, RDW Std Deviation 51.1 H, RDW Coeff of Fior 14.5, Plt Count 266, MPV 10.5, Immature Gran % (Auto) 0.400, Neut % (Auto) 64.5, Lymph % (Auto) 22.1, [place] % (Auto) 8.1, Eos % (Auto) 4.3, Baso % (Auto) 0.6, Absolute Neuts (auto) 3.3, Absolute Lymphs (auto) 1.12, Nucleated RBC % 0, Sodium 137, Potassium 4.5, Chloride 102, Carbon Dioxide 24.0, Anion Gap 11, BUN 50 H, Creatinine 7.25 H, Estim Creat Clear Calc 8.93, Est GFR (MDRD) Af Amer 7 L, Est GFR (MDRD) Non-Af 6 L, BUN/Creatinine Ratio 6.9 L, Glucose 131 H, Calcium 8.3 L, Total Bilirubin 0.40, AST 33, ALT 29, Alkaline Phosphatase 230 H, Total Protein 8.2, Albumin 3.7, Globulin 4.5 H, Albumin/Globulin Ratio 0.8 L 03/25/24 15:43: Urine Color Yellow, Urine Clarity Sl. Cloudy, Urine pH 5.0, Ur Specific [place] 1.015, Urine Protein 500 H, Urine Glucose (UA) Normal, Urine Ketones Negative, Urine Occult Blood 25 H, Urine Nitrite Negative, Urine Bilirubin 1 H, Urine Urobilinogen 1 H, Ur Leukocyte Esterase 25 H, Urine RBC 0 SEEN, Urine WBC 0-5 SEEN, Ur Squamous Epith Cells 0-5 SEEN, Amorphous Sediment 2+, Urine Bacteria 0 SEEN, Urine Mucus 0 SEEN, Urine Opiates Screen NEGATIVE, Urine Methadone Screen NEGATIVE, Ur Barbiturates Screen NEGATIVE, Ur Phencyclidine Scrn NEGATIVE, Ur Amphetamines Screen NEGATIVE, MDMA (Ecstasy) Screen NEGATIVE, U Benzodiazepines Scrn NEGATIVE, Urine Cocaine Screen NEGATIVE, U Cannabinoids Screen NEGATIVE, Ur Drug Screen Comment 03/25/24 : Ammonia 20.0 ABG Data ABG results: ABG 03/25/24 15:42 Specimen Type SHAUN Sample Site Not entered VBG pH 7.47 H VBG pO2 48 H VBG HCO3 29 H VBG Total CO2 30 VBG O2 Sat (Calc) 86 H VBG Base Excess 5 H POC Mix VBG pCO2 Pt Tmp 39.5 L O2 Delivery Device Room Air Imaging Radiology Impression Brain CT 03/25/24 15:16 IMPRESSION: There are no acute findings. Chronic involutional changes of the brain. Electronically Signed: Dallas Arndt MD at 16:02 EDT , Chest X-Ray 03/25/24 15:50 IMPRESSION: No acute findings in the chest. Electronically Signed: Dallas Arndt MD at 16:03 EDT , Assessment & Plan Assessment/Plan (1) ESRD (end stage renal disease) on dialysis: PLAN: Plan 58-year-old female with past medical history of end-stage renal disease on schedule Tuesday hemodialysis, hypertension, insulin-dependent diabetes mellitus, peripheral edema, presents to the ED in the setting of missed dialysis and worsening altered mental status. The likely differentials for presentation is uremic encephalopathy versus metabolic encephalopathy in the setting of ongoing gabapentin use. Infectious workup has been negative so far. #Acute altered mental status: -Protecting airway well -Nephrology consulted and scheduled for dialysis -Continue to monitor in PCU with overnight observation -Hold off gabapentin, olanzapine for now #ESRD on maintenance hemodialysis: -Nephrology consult -Scheduled for dialysis tomorrow morning -Volume overload related to the missed dialysis session -Satting well on room air no indication for diuretics at this time #Hypertension: Continue amlodipine 5 mg, Coreg #Dyslipidemia: Continue atorvastatin #Depression-continue bupropion 3 on 150 mg daily #Prior history of stroke: Continue Plavix 75, aspirin #Insulin-dependent diabetes mellitus: Continue home aspart insulin 6 units, glargine 20 units daily and 5 units at bedtime, insulin as per sliding scale #Hypothyroidism: Continue levothyroxine 25 mcg #Insomnia: Continue melatonin 5 mg at bedtime #Constipation: Continue Senokot #DVT prophylaxis: Suspect short admission, -Heparin 5000 units SQ BID
[2024-03-25 17:08] VITALS: BP 97/64; PULSE 75; RESP 24; TEMP 36.2; O2SAT 97
[2024-03-25 17:33] VITALS: BMI 27.2
[2024-03-25 17:43] VITALS: BP 103/53; PULSE 80; RESP 16; TEMP 36.5; O2SAT 92
[2024-03-25 18:32] VITALS: PULSE 72
[2024-03-25 19:05] LABS: Thyroid Stim Hormone (TSH) 2.53 uIU/mL (0.358-3.74)
--- NOTE | 2024-03-25 21:10 | NURSING ---
Pt олег (Yamel) called in for an update at this time. Update given after verifying that Yamel was a contact listed on patient chart.
[2024-03-25 22:04] VITALS: BP 109/56; PULSE 77; RESP 18; TEMP 36.3; O2SAT 99
[2024-03-25] MEDS: Pramipexole Di-HCl 0.5 MG Tablet 1.5 MG PO (22:22)
[2024-03-25] MEDS: Isosorbide DN 20 MG Tablet PO (22:26)
[2024-03-25 22:27] VITALS: BP 109/56; PULSE 77
[2024-03-25] MEDS: hydrALAZINE 25 MG Tablet PO (22:27)
[2024-03-25] MEDS: Carvedilol 25 MG Tablet PO (22:27)
[2024-03-25] MEDS: Heparin Injection (Vial) 5,000 UNIT/ML VIAL 5000 UNIT SC (22:28)
[2024-03-25] MEDS: Insulin Glargine-YFGN 100 UNIT/ML Pen SC (22:28)
[2024-03-25] MEDS: 0.9% Saline Lock 10 ML Syringe IV (22:34)
[2024-03-25 23:12] LABS: Bedside Glucose 156 mg/dL (74-106)
[2024-03-26] VITALS (19 sets, daily range): BP systolic 67–359; BP diastolic 42–79; PULSE 69–79; RESP 14–18; TEMP 36.1–36.4; O2SAT 90–98; BMI 27.2
[2024-03-26] MEDS: Levothyroxine 25 MCG TABLET PO (05:30)
[2024-03-26] MEDS: Isosorbide DN 20 MG Tablet PO ×3 (05:32→22:50)
[2024-03-26] MEDS: hydrALAZINE 25 MG Tablet PO ×3 (05:32→23:01)
[2024-03-26 06:23] LABS: Absolute Lymphocyte Count 0.92 X10^3/uL (0.83-4.51); Absolute Neutrophil Count 4.2 X10^3/uL (2.0-7.7); Basophil# 0.02 X10^3/uL; Basophil% 0.3 % (0-1); Eosinophil# 0.17 X10^3/uL; Hematocrit 29.1 % (37-47); Lymphocyte # 0.92 X10^3/ul (0.83-4.51); Lymphocyte % 16.1 % (19-41); Mean Corp Hgb Conc 30.9 g/dL (32-36); Mean Corpuscular Hgb 30.9 pg (27.0-32.0); Mean Platelet Vol. 10.8 fl (6.2-12.0); Monocyte# 0.38 X10^3/uL; Monocyte% 6.6 % (0-10); NRBC Flagged by Analyzer 0 % (0-5); Neutrophil # 4.21 X10^3/uL (2.7-7.7); Neutrophil % 73.7 % (47-70); Platelet Count 239 K/mm3 (150-450); RBC Distribution Width CV 14.3 % (11.6-14.6); RBC Distribution Width SD 51.3 fl (35.1-43.9); Red Blood Count 2.91 M/mm3 (4.2-5.4); White Blood Count 5.7 K/mm3 (4.4-11.0)
[2024-03-26 06:45] LABS: International Normalized Ratio 1.2; Prothrombin Time (Protime)PT. 15.2 SECONDS (11.7-14.9)
[2024-03-26 07:41] LABS: ALB/GLOB Ratio 0.8 RATIO (0.9-2.4); AST(SGOT) 31 U/L (15-37); Alanine Aminotransfer ALT/SGPT 29 U/L (13-56); Alkaline Phosphatase 194 U/L (45-117); Anion Gap 11 (5-15); BUN 57 mg/dL (7-18); BUN/Creat Ratio 7.4 RATIO (10-20); Bilirubin, Direct 0.14 mg/dL (0.00-0.30); Calcium,Total 7.5 mg/dL (8.5-10.1); Chloride 101 mmol/L (98-107); Creatinine, Serum 7.75 mg/dL (0.55-1.02); EST Glomerular Filtration Rate 6 mL/min (>60); Est Glom Filt Rate - Afr Amer 7 mL/min (>60); Estimated Creatinine Clearance 7.98 ml/min; Globulin 3.7 g/dL (2.2-4.2); Glucose 228 mg/dL (74-106); Phosphorus 5.2 mg/dL (2.5-4.9); Potassium 4.7 mmol/L (3.5-5.1); Protein, Total 6.7 g/dL (6.4-8.2); Sodium Level 137 mmol/L (136-145); Thyroid Stim Hormone (TSH) 1.35 uIU/mL (0.358-3.74)
--- NOTE | 2024-03-26 08:20 | NUR.TO.PHY ---
Patient states that they usually reverse my dialysis catheter lines at treatment. Art port has very poor pull. Mauricio port has sluggish pull, but adequate after flushing the port. Alteplase ordered.
[2024-03-26] MEDS: Insulin Lispro 100 UNIT/ML INSULN.PEN 6 UNIT SC (08:40)
[2024-03-26] MEDS: Insulin Glargine-YFGN 100 UNIT/ML Pen 20 UNIT SC (08:46)
--- NOTE | 2024-03-26 10:18 | CASEMGMT ---
Addendum entered by Alida Blum 03/26/24 10:28: Noted Palliative referral sent 03/19 w/pt's last admission. E-mail sent to Palliative to notify them pt has been admitted to [facility] and to inquire if pt has signed on w/Palliative. Original Note: KELSIE IRELAND NOTE: Call placed to [facility] and spoke w/Penelope. She was made aware pt has been admitted to [facility] under OBS and will be getting dialysis at the hospital today. Penelope informed this RN CM that pt did not miss OP HD @ [facility] this past Friday 03/23, stating it was the prior Friday 03/16 that she missed. (She states after pt discharged from [facility] 03/19, that she went to both appts last week, 03/21 and 03/23). KELSIE IRELAND to notify [facility] if pt is discharged home today. If pt not d/c'd today, Penelope will contact CM on Wed AM to inquire if pt is still @ [facility] or d/c'd home. Per Penelope, pt's arrival time @ [facility] is 11 AM MWFJessica MANLEY RN, CM
[2024-03-26] MEDS: 0.9% Saline Lock 10 ML Syringe IV ×2 (11:02)
[2024-03-26] MEDS: PureFlow B 2K Dialysis Soln 1 BAG 6 BAG PF (11:03)
[2024-03-26] MEDS: 0.9% Normal Saline 1,000 ML IV.SOLN. 1000 ML OPERA.SITE (11:04)
[2024-03-26] MEDS: Alteplase 2 MG/2 ML Vial IV (11:04)
[2024-03-26] MEDS: Heparin 10,000 UNITS/10 ML Vial 2500 UNITS IV (11:04)
--- NOTE | 2024-03-26 12:08 | DCINST_ITS ---
Discharge Instructions Diet Discharge Diet: Renal Diet Activity Discharge Activity: Return to Normal Activity Weight Bearing Status: Full weight bearing Follow Up Care Test Results: Test results from this visit will be discussed in further detail at your follow- up appointment, if applicable. Discharge Plan Admission Admit Date/Time: 03/25/24 16:46 Primary Reason for Your Visit: encephalopathy Attending Provider: Raúl Perez Primary Care Provider: Raúl Eric Consulting Providers: Rachel Abraham; Billie Thompson Discharge Orders/Prescriptions Prescriptions: Continued paroxetine HCl 20 mg tablet 20 mg PO DAILY Patient Comments: TAKE 1 TABLET BY MOUTH EVERY DAY IN THE EVENING bupropion HCl 150 mg tablet extended release 24 hr 150 mg PO DAILY Patient Comments: TAKE 1 TABLET BY MOUTH EVERY DAY sennosides-docusate sodium [Stool Softener-Stimulant Laxat] 8.6-50 mg Tablet 2 tab PO BID PRN PRN (Reason: Constipation) Qty: 0 0RF ascorbic acid (vitamin C) [Vitamin C] 500 mg Tablet 500 mg PO BID clopidogrel 75 mg tablet 75 mg PO DAILY pantoprazole 40 mg tablet,delayed release (DR/EC) 40 mg PO BIDCM ferrous sulfate 325 mg (65 mg iron) tablet 325 mg PO .three times a week Patient Comments: takes three times a week, on Tuesday, and Tuesday insulin lispro [Humalog KwikPen Insulin] 100 unit/mL Insulin Pen See Protocol subcut TIDAC Qty: 0 0RF Protocol: 1. Sliding Scale Insulin Low Dosing Condition: 150-224 mg/dl = 1 unit Condition: 225-299 mg/dl = 2 units Condition: 300-374 mg/dl = 3 units Condition: 375-499 mg/dl = 4 units Condition: Greater than 449 call physician Protocol Text: - Use for Total Daily Dose of Insulin 15-27 units - Thin, elderly, renal patients LOW DOSING ALGORITHM insulin glargine-yfgn 100 unit/mL (3 mL) insulin pen 5 unit subcut QHS Qty: 15 0RF Rx Instructions: Hold if glucose less than 130 mg/dl gabapentin 100 mg capsule 100 mg PO .COMPLEX PRN (Reason: pain) Rx Instructions: 100 mg orally 3 times a week Tuesday, Tuesday and Tuesday cyclobenzaprine 5 mg tablet 5 mg PO TID PRN (Reason: muscle spasm) Qty: 21 0RF cephalexin 500 mg capsule 500 mg PO Q8H 7 Days Qty: 21 0RF sulfamethoxazole-trimethoprim [Bactrim DS] 800-160 mg tablet 1 tab PO BID 7 Days Qty: 14 0RF atorvastatin 40 mg tablet 40 mg PO DAILY carvedilol 25 mg tablet 25 mg PO BID buprenorphine 5 mcg/hour patch weekly 1 patch topical QWEEK calcium acetate(phosphat bind) 667 mg capsule 676 mg PO TID Patient Comments: TAKE 1 CAPSULE BY MOUTH THREE TIMES A DAY WITH FOOD folic acid 800 mcg tablet 0.8 mg PO DAILY Patient Comments: TAKE 1 TABLET BY MOUTH EVERY DAY levothyroxine 25 mcg tablet 25 mcg PO DAILY Patient Comments: TAKE 1 TABLET BY MOUTH EVERY DAY BEFORE BREAKFAST insulin aspart U-100 100 unit/mL (3 mL) insulin pen SUBCUT Patient Comments: PLEASE SEE ATTACHED FOR DETAILED DIRECTIONS olanzapine 5 mg tablet 5 mg PO QHS Patient Comments: TAKE 1 TABLET BY MOUTH EVERYDAY AT BEDTIME amlodipine 5 mg tablet 5 mg PO DAILY hydralazine 25 mg tablet 25 mg PO TID insulin glargine [Lantus Solostar U-100 Insulin] 100 unit/mL (3 mL) insulin pen 20 unit subcut DAILY lidocaine-silicone, adhesive topical Patient Comments: 1 patch daily melatonin 5 mg capsule 5 mg PO .bedtime insulin aspart U-100 [Novolog FlexPen U-100 Insulin] 6 unit subcut TID Patient Comments: give with meals ondansetron 4 mg tablet,disintegrating 4 mg PO DAILY PRN (Reason: nausea and vomiting) pramipexole dihydrochloride 1.5 mg PO BID isosorbide dinitrate 10 mg Tablet 20 mg PO TID acetaminophen 325 mg capsule 325 mg PO Q4H PRN (Reason: fever or pain) antacid extra assorted fruit tablets 750 mg PO .every 4 hours PRN (Reason: tums) calcitriol 0.5 mcg capsule 0.5 mcg PO .COMPLEX Rx Instructions: 0.5 mcg orally three times a week; cloNIDine See Rx Instructions .ROUTE .COMPLEX Rx Instructions: 0.1mg every 4 hours as needed diphenhydramine 25 mg IV Rx Instructions: every 30 minutes as needed. loperamide [Anti-Diarrheal (loperamide)] 2 mg capsule 2 mg PO Q4H PRN (Reason: loose stool) Rx Instructions: administer after each loose stool until symptoms controlled; do not exceed 8 mg per 24 hrs Mircera See Rx Instructions .ROUTE .COMPLEX Rx Instructions: intravenous every 2 weeks nitroglycerin [Nitrostat] 0.4 mg tablet, sublingual 0.4 mg sublingual Q5M Rx Instructions: do not exceed 3 doses per episode promethazine 25 mg tablet 25 mg PO Q4H PRN (Reason: nausea and vomiting) Venofer Rx Instructions: 50 mg one time a week. cefepime in dextrose 5 % 1 gram/50 mL piggyback 1 g IV .as directed Rx Instructions: Dose with dialysis sessions. 1gm on Tue, 2gm on , 1gm on , 2gm on Tuesday. Stop date 01/30/24. Dx: MSSA endocarditis. Weekly bmp and cbc. Fax to [phone]. aspirin 81 mg capsule 81 mg PO DAILY Qty: 30 1RF Referrals / Follow Up: Raúl Eric MD [Primary Care Provider] - Disposition Disposition (needs filled in before D/C Order can be placed): Home, Self Care
--- NOTE | 2024-03-26 12:16 | CASEMGMT ---
ADVANCE DIRECTIVE VALIDATION Patient answered no to having a POAHC or Living Will upon admission and declined any information on this subject matter. -RACHAEL Salas
[2024-03-26] MEDS: Ondansetron ODT 4 MG Tablet PO (12:35)
[2024-03-26 12:55] LABS: Bedside Glucose 114 mg/dL (74-106)
[2024-03-26] MEDS: Menthol/Lanolin/Calamine/Znox 113 GM Tube 1 APPLIC TOPICAL ×2 (15:14→22:51)
--- NOTE | 2024-03-26 17:39 | PCM.PN.HOSP ---
Reason for Visit Reason for Visit: Diagnoses End stage renal disease (03/25/24) Dependence on renal dialysis (03/25/24) Subjective Subjective Patient was seen and examined today, patient had an episode of diarrhea and vomiting today, I elected to have her remain in the hospital at this time and ordered some stool studies on her. Objective Data Objective Data Vital Signs: Vital Signs Temp Pulse Resp BP Pulse Ox O2 Del Method 97.3 F L 79 18 155/73 H 97 Room Air 03/26/24 15:10 03/26/24 15:13 03/26/24 15:10 03/26/24 15:10 03/26/24 15:10 03/26/24 15:10 Oxygen Delivery Method Room Air Weight: 74.2 kg Body Mass Index (BMI) 27.2 Intake & Output: Intake and Output for Last 24 Hours 03/24/24 03/25/24 03/26/24 23:59 23:59 23:59 Intake Total 420 / 420 Output Total 140 / 140 Balance 280 / 280 Lab / Micro Data 03/26/24 05:12 03/26/24 05:12 Labs: Laboratory Results - last 24 hr 03/25/24 15:16: TSH 2.53 03/25/24 22:12: POC Glucose 156 H 03/26/24 05:12: WBC 5.7, RBC 2.91 L, Hgb 9.0 L, Hct 29.1 L, MCV 100.0 H, MCH 30.9, MCHC 30.9 L, RDW Std Deviation 51.3 H, RDW Coeff of Fior 14.3, Plt Count 239, MPV 10.8, Immature Gran % (Auto) 0.300, Neut % (Auto) 73.7 H, Lymph % (Auto) 16.1 L, [place] % (Auto) 6.6, Eos % (Auto) 3.0, Baso % (Auto) 0.3, Absolute Neuts (auto) 4.2, Absolute Lymphs (auto) 0.92, Nucleated RBC % 0, Sodium 137, Potassium 4.7, Chloride 101, Carbon Dioxide 25.0, Anion Gap 11, BUN 57 H, Creatinine 7.75 H*, Estim Creat Clear Calc 7.98, Est GFR (MDRD) Af Amer 7 L, Est GFR (MDRD) Non-Af 6 L, BUN/Creatinine Ratio 7.4 L, Glucose 228 H, Calcium 7.5 L, Phosphorus 5.2 H, Magnesium 2.0, Total Bilirubin 0.30, Direct Bilirubin 0.14, AST 31, ALT 29, Alkaline Phosphatase 194 H, Total Protein 6.7, Albumin 3.0 L, Globulin 3.7, Albumin/Globulin Ratio 0.8 L, TSH 1.35 03/26/24 05:17: PT 15.2 H, INR 1.2 03/26/24 12:33: POC Glucose 114 H Physical Exam Const alert, oriented x3 and no apparent distress Constitutional Narrative: Patient has flat affect General Appearance: cooperative, well kempt and well developed Orientation / Consciousness: awake, oriented to person and oriented to place HEENT normocephalic, head/scalp atraumatic and moist oral mucous membranes Eyes PERRL, EOMs intact bilaterally and conjunctivae normal Neck supple, no JVD, thyroid normal and no carotid bruits General: trachea midline Resp normal respiratory effort, no retractions, no use of accessory muscles and clear to auscultation bilaterally Auscultation: Negative for rales, rhonchi or wheezes Cardio regular rate, regular rhythm, S1 normal heart sound, S2 normal heart sound, no murmurs, no rub and no gallops GI normal to inspection, nondistended, normoactive bowel sounds, soft to palpation, non-tender and non-distended Extremity no clubbing, cyanosis or edema Skin no rashes or lesions noted General Skin Exam: no breakdown Neuro CN's II-XII intact bilaterally, no focal motor deficits and no sensory deficits noted Sensorium / Orientation: awake, alert, oriented to person and oriented to place Speech: speech normal Psych Psych Narrative: Patient has flat affect Assessment & Plan Assessment/Plan (1) Mental status, decreased: PLAN: Plan 1. Acute encephalopathy-resolved at this time, I have reviewed the patient's home medications and made adjustments. #2 acute nausea and vomiting with diarrhea-etiology unclear at this time, again I have ordered stool studies on the patient at this time, according to nursing, patient's daughter states that patient has frequent vomiting at home after eating, I have elected to order an upper GI tomorrow on the patient to see if there is any abnormality #3 end-stage renal disease-patient had dialysis today #4 essential hypertension-patient remains on her present medications for blood pressure #5 type 2 diabetes-patient is on sliding scale insulin at this time with fingerstick blood sugars, she has been n.p.o. since her episode of vomiting and diarrhea today, I will advance her diet to a full liquid diet Total clinical time spent by myself addressing the patient's medical issues, reviewing all of her data, and collaborating with patient's care team: 35 minutes Charges/Coding Visit Charges Inpatient E&M: 83290 Subs Hosp L2
[2024-03-26] MEDS: Pramipexole Di-HCl 0.5 MG Tablet 1.5 MG PO (22:49)
[2024-03-26] MEDS: MELATONIN 10 MG TABLET 5 MG PO (22:49)
[2024-03-26] MEDS: Heparin Injection (Vial) 5,000 UNIT/ML VIAL 5000 UNIT SC (22:50)
[2024-03-26] MEDS: Atorvastatin Calcium 40 MG Tablet PO (22:50)
[2024-03-26] MEDS: Carvedilol 25 MG Tablet PO (22:50)
[2024-03-26] MEDS: Insulin Glargine-YFGN 100 UNIT/ML Pen SC (23:02)
[2024-03-26 23:22] LABS: Bedside Glucose 209 mg/dL (74-106)
[2024-03-26 23:22] LABS: Bedside Glucose 152 mg/dL (74-106)
[2024-03-27 03:00] VITALS: BP 120/61; PULSE 67; RESP 17; TEMP 36.2; O2SAT 93
--- NOTE | 2024-03-27 08:30 | RAD_ITS ---
STUDY: AIR CONTRAST ESOPHAGRAM AND UPPER GI SERIES REASON FOR EXAM: Female, 58 years old. Vomiting after eating FLUOROSCOPY TIME (if supplied): (54 seconds) minutes/seconds. 30.03 mGy. 17 fluoroscopic images were obtained. TECHNIQUE: SINGLE CONTRAST AND AIR CONTRAST FLUOROSCOPIC IMAGES. COMPARISON: Comparison is made with prior study December 28, 2018. FINDINGS: The cervical esophagus demonstrates normal motility without aspiration. There is no stricture or extrinsic mass effect. No intraluminal polypoid mass is identified. The thoracic esophagus distends well without stricture or mucosal fold thickening. No mucosal ulcerations are identified. There is no extrinsic mass effect. There are no diverticula. No hiatal hernia or gastroesophageal reflux was identified. The stomach distends well without mucosal fold thickening or mucosal ulceration. There is no intraluminal mass. The duodenal bulb is freely distensible without deformity or ulceration. The duodenal sweep is normal in position and caliber. RAD/Upper GI w/BA Swallow IMPRESSION: Normal air-contrast upper GI series. Electronically Signed: Ronnie Saavedra MD at 10:39 EDT ,
[2024-03-27 09:00] VITALS: BP 130/65; PULSE 71; RESP 14; TEMP 36.3; O2SAT 97
[2024-03-27 09:27] LABS: Bedside Glucose 80 mg/dL (74-106)
--- NOTE | 2024-03-27 10:50 | CASEMGMT ---
Patient has order for discharge. KELSIE IRELAND in to discuss needs at discharge. Patient states she would still like to attend outpatient therapy at [facility]. Patient was to attend today, KELSIE IRELAND called and requested [facility] to call niece or daughter to reschedule appt. Patient states she does not have her cell phone. Patient had no further questions or concerns. KELSIE IRELAND called олег Montesinos and she can pick her up between [phone]. KELSIE IRELAND updated nursing.
--- NOTE | 2024-03-27 10:54 | CON.PCM.RE_ITS ---
Assessment & Plan Assessment/Plan (1) ESRD (end stage renal disease) on dialysis: PLAN: Plan This is a 58-year-old female with past medical history significant for ESRD requiring hemodialysis 3 times weekly on a Tuesday schedule, presented to emergency room for drowsiness/confusion and admitted for further evaluation of altered mental status. Chest x-ray did not show any acute findings on admission. Stool panel/C. difficile normal. White count normal on admission. Patient afebrile. Acute encephalopathy resolved, patient did tolerate dialysis yesterday with fluid removal. No acute indication for INSPECTOR CHIEF today. Encephalopathy may have been related to missing dialysis on Tuesday. Patient was kept overnight for acute nausea and vomiting, patient had upper GI this morning with no acute findings. Probable discharge to home today. Patient's next dialysis is tomorrow at her kidney center. Thank you for allowing us to participate in the care of Ms. Carrillo. HPI Consult Data Date of Consult: 03/27/24 HPI Narrative HPI Narrative: DIONY CARRILLO, is a 58 F with past medical history significant for ESRD who dialyzes Tuesday at [facility] [place] in [place], followed by Dr. Flynn who presented to emergency room with complaints of drowsiness. Patient was admitted for further evaluation of altered mental status. Nephrology consulted as patient has history of ESRD, requiring hemodialysis. Apparently patient had missed her dialysis session on March 23. She did dialyze yesterday in the hospital. Patient is alert and oriented, denies any complaints, possible discharge to home today. [facility] Medical History ESRD on dialysis Carotid artery stenosis MSSA bacteremia Chronic anemia ESRD on hemodialysis Osteomyelitis End stage renal disease Anemia in chronic illness Type 2 diabetes mellitus Foot osteomyelitis, left Chronic renal disease, stage 4, severely decreased glomerular filtration rate (GFR) between 15-29 mL/min/1.73 square meter Acute on chronic anemia Chronic ulcer of right foot with necrosis of bone Chronic kidney disease, stage 4 (severe) Diabetes mellitus with diabetic polyneuropathy CRF (chronic renal failure) Diabetic foot ulcers Cellulitis of both lower extremities Chronic kidney disease, stage 3b Osteomyelitis of metatarsal Charcot's joint, right ankle and foot Charcot's joint, left ankle and foot Cellulitis Acute lumbar radiculopathy Essential hypertension Adult failure to thrive Type 2 diabetes mellitus with diabetic polyneuropathy Elevated troponin COVID-19 (08/28/21) Chronic ulcer of right leg with fat layer exposed Ulcer of left foot with fat layer exposed Chronic ulcer of right foot with fat layer exposed Hyperparathyroidism, secondary renal Iron deficiency anemia Anemia due to chronic illness Stage 4 chronic kidney disease Bilateral edema of lower extremity Chronic foot pain Chronic ulcer of right foot with necrosis of muscle Non-pressure chronic 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 layer exposed Debility Charcot's joint of right foot Diabetes Non-smoker Myocardial infarct Hypertension TIA (transient ischemic attack) Amputation foot, bilat Non-pressure chronic ulcer of other part of left foot with fat layer exposed Type 2 diabetes mellitus with diabetic polyneuropathy 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 Ulcer of left foot with necrosis of muscle Chronic renal insufficiency Ulcer of left foot with muscle involvement without evidence of necrosis Anxiety and depression Diabetic infection of left foot Delayed wound healing Non-compliance Osteomyelitis of left foot Essential (primary) hypertension Diabetic polyneuropathy Ischemic cardiomyopathy Normocytic anemia Obesity (BMI 30.0-34.9) Type 2 diabetes mellitus with diabetic polyneuropathy Acquired varus deformity of left foot Acquired varus deformity of right foot Chronic ulcer of left foot with fat layer exposed Ulcer of right lower extremity with fat layer exposed Atherosclerosis of [place] coronary artery of [place] heart without angina pectoris Hemoglobin A1c greater than 9.0% Diabetic ulcer of right ankle NSTEMI (non-ST elevated myocardial infarction) (09/20/18) GERD (gastroesophageal reflux disease) HLD (hyperlipidemia) Back pain, chronic Diabetic foot ulcer associated with type 2 diabetes mellitus RLS (restless legs syndrome) Home Medications ?Medication ?Instructions ?Recorded ?Last Taken ?Type paroxetine HCl 20 mg tablet 20 mg PO DAILY DEPRESSION 07/07/21 04/07/22 History bupropion HCl 150 mg 24 hr tablet, 150 mg PO DAILY mood 02/04/22 04/07/22 History extended release sennosides 8.6 mg-docusate sodium 2 tab PO BID PRN PRN Constipation 04/24/22 Unknown Rx 50 mg tablet (Stool #0 tabs Softener-Stimulant Laxative) ascorbic acid (vitamin C) 500 mg 500 mg PO BID supplement 05/05/22 Unknown History tablet (Vitamin C) clopidogrel 75 mg tablet 75 mg PO DAILY prevent stroke 07/19/22 Unknown History ferrous sulfate 325 mg (65 mg 325 mg PO .three times a week 07/19/22 Unknown History iron) tablet anemia pantoprazole 40 mg tablet,delayed 40 mg PO BIDCM GERD 07/19/22 Unknown History release insulin glargine-yfgn 100 unit/mL 5 unit (0.05 mL) subcut QHS blood 07/21/22 Unknown Rx (3 mL) subcutaneous pen sugar #15 mL insulin lispro 100 unit/mL See Protocol subcut TIDAC #0 mL 07/21/22 Unknown Rx subcutaneous pen (Humalog KwikPen (U-100) Insulin) cyclobenzaprine 5 mg tablet 5 mg PO TID PRN muscle spasm #21 11/26/23 Unknown Rx tabs gabapentin 100 mg capsule 100 mg PO .COMPLEX PRN pain 11/26/23 Unknown History Mircera See Rx Instructions .Route 12/16/23 Unknown History .COMPLEX dialysis Venofer iron 12/16/23 Unknown History acetaminophen 325 mg capsule 325 mg PO Q4H PRN fever or pain 12/16/23 Unknown History amlodipine 5 mg tablet 5 mg PO DAILY bp 12/16/23 Unknown History antacid extra assorted fruit 750 mg PO .every 4 hours PRN tums 12/16/23 Unknown History tablets calcitriol 0.5 mcg capsule 0.5 mcg PO .COMPLEX on dialysis 12/16/23 Unknown History calcium acetate(phosphat bind) 667 676 mg PO TID is on dialysis 12/16/23 Unknown History mg capsule cloNIDine See Rx Instructions .Route 12/16/23 Unknown History .COMPLEX dialysis diphenhydramine 25 mg IV itching 12/16/23 Unknown History folic acid 800 mcg tablet 0.8 mg PO DAILY supplement 12/16/23 Unknown History hydralazine 25 mg tablet 25 mg PO TID bp 12/16/23 Unknown History insulin aspart U-100 6 unit subcut TID blood glucose 12/16/23 Unknown History insulin aspart U-100 100 unit/mL subcut 12/16/23 Unknown History (3 mL) subcutaneous pen insulin glargine 100 unit/mL (3 20 unit subcut DAILY blood glucose 12/16/23 Unknown History mL) subcutaneous pen (Lantus Solostar U-100 Insulin) isosorbide dinitrate 10 mg tablet 20 mg PO TID bp and heart 12/16/23 Unknown History levothyroxine 25 mcg tablet 25 mcg PO DAILY thyroid 12/16/23 Unknown History lidocaine-silicone, adhesive topical pain 12/16/23 Unknown History loperamide 2 mg capsule 2 mg PO Q4H PRN loose stool 12/16/23 Unknown History (Anti-Diarrheal (loperamide)) melatonin 5 mg capsule 5 mg PO .bedtime sleep 12/16/23 Unknown History nitroglycerin 0.4 mg sublingual 0.4 mg sublingual Q5M chest pain 12/16/23 Unknown History tablet (Nitrostat) olanzapine 5 mg tablet 5 mg PO QHS sleep 12/16/23 Unknown History ondansetron 4 mg disintegrating 4 mg PO DAILY PRN nausea and 12/16/23 Unknown History tablet vomiting pramipexole dihydrochloride 1.5 mg PO BID unknown 12/16/23 Unknown History promethazine 25 mg tablet 25 mg PO Q4H PRN nausea and 12/16/23 Unknown History vomiting aspirin 81 mg capsule 81 mg PO DAILY #30 caps 12/26/23 Unknown Rx cefepime 1 gram/50 mL in dextrose 1 g IV .as directed 12/26/23 Unknown Rx 5 % intravenous piggyback atorvastatin 40 mg tablet 40 mg PO DAILY 03/18/24 Unknown History buprenorphine 5 mcg/hour weekly 1 patch topical QWEEK 03/18/24 Unknown History transdermal patch carvedilol 25 mg tablet 25 mg PO BID 03/18/24 Unknown History Allergy/AdvReac Type Severity Reaction Status Date / Time Penicillins Allergy swelling Verified 03/18/24 20:05 in throat vancomycin Allergy Itching Verified 03/18/24 20:05 metronidazole AdvReac Nausea Verified 03/18/24 20:05 oxycodone (From OxyContin) AdvReac Shortness Verified 03/18/24 20:05 of breath Family History Mother Diabetes CVA (cerebral vascular accident) Brother CAD (coronary artery disease) CABG X 3 Cancer testicular Diabetes Brother CAD (coronary artery disease) CABG X3 Diabetes Brother CAD (coronary artery disease) Stents Diabetes Sister CAD (coronary artery disease) CABG x 3 CVA (cerebral vascular accident) Diabetes Surgical History History of History of foot surgery History of bilateral carpal tunnel release History of rotator cuff surgery History of coronary artery stent placement (12/31/20) Social History household members: none number of children: 2 current occupational status: disabled Smoking Status: Never smoker alcohol intake: never substance use type: does not use caffeine: Yes Type: carbonated beverages Number of servings: 2 ROS ROS Narrative As in HPI and past medical history Physical Exam Narrative Alert and oriented x 3, no apparent distress S1, S2, RRR Lung sounds clear Abdomen soft No edema Left upper arm AV fistula positive thrill and bruit, deep thrill Tunneled HD catheter dressing clean, dry and intact Lab / Micro Data 03/26/24 05:12 03/26/24 05:12 Labs: Laboratory Results - last 24 hr 03/26/24 12:33: POC Glucose 114 H 03/26/24 16:58: POC Glucose 152 H 03/26/24 22:31: POC Glucose 209 H 03/27/24 08:13: POC Glucose 80 Micro: Microbiology 03/26/24 13:50 Stool Enteric Bacteriology - Final 03/26/24 13:50 Stool C. difficile GDH Antigen & Toxins - Final 03/26/24 13:50 Stool Clostridioides difficile (PCR) - Final Imaging Radiology Impression Upper GI/Barium Swallow X-Ray 03/27/24 08:30 IMPRESSION: Normal air-contrast upper GI series. Electronically Signed: Ronnie Saavedra MD at 10:39 EDT ,
[2024-03-27 11:18] VITALS: BP 149/66; PULSE 80; RESP 14; TEMP 36.4; O2SAT 97
[2024-03-27 11:33] LABS: Bedside Glucose 102 mg/dL (74-106)
--- NOTE | 2024-03-27 11:54 | CHAPLAIN ---
Type of Pastoral Visit _x__ Initial Visit ___ Follow-up Visit ___ On-call Visit ___ General Patient Visit ___ Spiritual Assessment ___ Family Conference ___ Bereavement ___ Rapid Response ___ Code Blue ___ Other (describe below) Pastoral Care Referral From _x__ Patient ___ Family ___ Nurse ___ Physician ___ Silo Tender ___ Railroad Repairer ___ Other (describe below) Sacrament/Intervention _x__ Active listening ___ Anointing ___ Holiness ___ Bereavement ___ Communion ___ Stacey exploration ___ ___ Life review _x__ Prayer ___ Reconciliation ___ Sacrament of Sick _x__ Supportive presence ___ Wedding ___ Other (describe below) Pastoral Comments patient speaks of being hungry and needing something to eat; during the visit a meal came; pt admits to being so weary of hospital stays over the last few years; pt has a niece that helps and she is anticipating outside resources for home help; pt welcomes a prayer for her support today
--- NOTE | 2024-03-28 15:23 | DS.PCM_ITS ---
Providers Date of Admission: 03/25/24 Date of Discharge: 03/27/24 Primary Care Physician: Dr. Raúl Eric MD Consultations 03/25/24 17:39 Consult: Nephrology Routine Consulting Provider: Rachel Abraham Reason for Consult: ESRD EMERGENT Consult: No MD Notified: Yes Date Notified: 03/25/24 Time Notified: 18:39 Method of Notification: Answering Service Reason For Visit: DECREASED MENTAL STATUS, ESRD ON DIALYSIS Diagnosis Discharge Diagnosis (1) ESRD (end stage renal disease) on dialysis: Status: Acute Code(s): N18.6 - End stage renal disease; Z99.2 - Dependence on renal dialysis Plan 1. Acute encephalopathy, etiology unclear-resolved at this time, I have reviewed the patient's home medications and made adjustments. #2 acute nausea and vomiting with diarrhea-etiology unclear at this time, again I have ordered stool studies on the patient at this time, according to nursing, patient's daughter states that patient has frequent vomiting at home after eating, I have elected to order an upper GI tomorrow on the patient to see if there is any abnormality #3 end-stage renal disease-patient had dialysis today #4 essential hypertension-patient remains on her present medications for blood pressure #5 type 2 diabetes-patient is on sliding scale insulin at this time with fingerstick blood sugars, she has been n.p.o. since her episode of vomiting and diarrhea today, I will advance her diet to a full liquid diet Total clinical time spent by myself addressing the patient's medical issues, reviewing all of her data, and collaborating with patient's care team: 35 minutes Medications at Discharge Home Medications paroxetine HCl 20 mg tablet 20 mg PO DAILY DEPRESSION 07/07/21 bupropion HCl 150 mg 24 hr tablet, extended release 150 mg PO DAILY mood 02/04/22 sennosides 8.6 mg-docusate sodium 50 mg tablet (Stool Softener-Stimulant Laxative) 2 tab PO BID PRN PRN Constipation #0 tabs 04/24/22 ascorbic acid (vitamin C) 500 mg tablet (Vitamin C) 500 mg PO BID supplement 05/05/22 clopidogrel 75 mg tablet 75 mg PO DAILY prevent stroke 07/19/22 ferrous sulfate 325 mg (65 mg iron) tablet 325 mg PO .three times a week anemia 07/19/22 pantoprazole 40 mg tablet,delayed release 40 mg PO BIDCM GERD 07/19/22 insulin glargine-yfgn 100 unit/mL (3 mL) subcutaneous pen 5 unit (0.05 mL) subcut QHS blood sugar #15 mL 07/21/22 insulin lispro 100 unit/mL subcutaneous pen (Humalog KwikPen (U-100) Insulin) See Protocol subcut TIDAC #0 mL 07/21/22 cyclobenzaprine 5 mg tablet 5 mg PO TID PRN muscle spasm #21 tabs 11/26/23 gabapentin 100 mg capsule 100 mg PO .COMPLEX PRN pain 11/26/23 Mircera See Rx Instructions .Route .COMPLEX dialysis 12/16/23 Venofer iron 12/16/23 acetaminophen 325 mg capsule 325 mg PO Q4H PRN fever or pain 12/16/23 amlodipine 5 mg tablet 5 mg PO DAILY bp 12/16/23 antacid extra assorted fruit tablets 750 mg PO .every 4 hours PRN tums 12/16/23 calcitriol 0.5 mcg capsule 0.5 mcg PO .COMPLEX on dialysis 12/16/23 calcium acetate(phosphat bind) 667 mg capsule 676 mg PO TID is on dialysis 12/16/23 cloNIDine See Rx Instructions .Route .COMPLEX dialysis 12/16/23 diphenhydramine 25 mg IV itching 12/16/23 folic acid 800 mcg tablet 0.8 mg PO DAILY supplement 12/16/23 hydralazine 25 mg tablet 25 mg PO TID bp 12/16/23 insulin aspart U-100 6 unit subcut TID blood glucose 12/16/23 insulin aspart U-100 100 unit/mL (3 mL) subcutaneous pen subcut 12/16/23 insulin glargine 100 unit/mL (3 mL) subcutaneous pen (Lantus Solostar U-100 Insulin) 20 unit subcut DAILY blood glucose 12/16/23 isosorbide dinitrate 10 mg tablet 20 mg PO TID bp and heart 12/16/23 levothyroxine 25 mcg tablet 25 mcg PO DAILY thyroid 12/16/23 lidocaine-silicone, adhesive topical pain 12/16/23 loperamide 2 mg capsule (Anti-Diarrheal (loperamide)) 2 mg PO Q4H PRN loose stool 12/16/23 melatonin 5 mg capsule 5 mg PO .bedtime sleep 12/16/23 nitroglycerin 0.4 mg sublingual tablet (Nitrostat) 0.4 mg sublingual Q5M chest pain 12/16/23 olanzapine 5 mg tablet 5 mg PO QHS sleep 12/16/23 ondansetron 4 mg disintegrating tablet 4 mg PO DAILY PRN nausea and vomiting 12/16/23 pramipexole dihydrochloride 1.5 mg PO BID unknown 12/16/23 promethazine 25 mg tablet 25 mg PO Q4H PRN nausea and vomiting 12/16/23 aspirin 81 mg capsule 81 mg PO DAILY #30 caps 12/26/23 cefepime 1 gram/50 mL in dextrose 5 % intravenous piggyback 1 g IV .as directed 12/26/23 atorvastatin 40 mg tablet 40 mg PO DAILY 03/18/24 buprenorphine 5 mcg/hour weekly transdermal patch 1 patch topical QWEEK 03/18/24 carvedilol 25 mg tablet 25 mg PO BID 03/18/24 Hospital Course Operations None Procedures Dialysis Summary of Care Provided Minutes Spent on Discharge: 31 Hospital Course: This 58-year-old white female was seen in the emergency room at [facility] with complaints of decreased mental status and drowsiness. Her caregiver called EMS to have the patient brought in for evaluation due to these symptoms. Limited information was obtained from the patient on examination. Labs obtained showed normal white blood cell count, hemoglobin was 10.4, creatinine was 7.25 and BUN was 50. Alkaline phosphatase was elevated at 230. Patient's toxicology screen was negative, urinalysis showed 0-5 WBCs and 0 RBCs, no bacteria were seen. Patient appeared drowsy in the emergency room but awakened easily to verbal and tactile stimulation. Patient was placed in observation status on PCU, she underwent dialysis and her mentation overall improved. The exact cause of her acute encephalopathy was not determined, she underwent a barium swallow due to complaints of vomiting after eating, this barium swallow was unremarkable. On 03/27/2024, patient was seen and examined:alert, oriented x3 and no apparent distress Constitutional Narrative: Patient has flat affect General Appearance: cooperative, well kempt and well developed Orientation / Consciousness: awake, oriented to person and oriented to place HEENT normocephalic, head/scalp atraumatic and moist oral mucous membranes Eyes PERRL, EOMs intact bilaterally and conjunctivae normal Neck supple, no JVD, thyroid normal and no carotid bruits General: trachea midline Resp normal respiratory effort, no retractions, no use of accessory muscles and clear to auscultation bilaterally Auscultation: Negative for rales, rhonchi or wheezes Cardio regular rate, regular rhythm, S1 normal heart sound, S2 normal heart sound, no murmurs, no rub and no gallops GI normal to inspection, nondistended, normoactive bowel sounds, soft to palpation, non-tender and non-distended Extremity no clubbing, cyanosis or edema Skin no rashes or lesions noted General Skin Exam: no breakdown Neuro CN's II-XII intact bilaterally, no focal motor deficits and no sensory deficits noted Sensorium / Orientation: awake, alert, oriented to person and oriented to place Speech: speech normal Psych Psych Narrative: Patient has flat affect Patient appears stable for discharge on 03/27/2024. Weight / BMI Weight Weight: 74.2 kg Body Mass Index (BMI) 27.2 ABG / Lab / Microbiology Data 03/26/24 05:12 03/26/24 05:12 Microbiology: Microbiology 03/26/24 13:50 Stool Enteric Bacteriology - Final 03/26/24 13:50 Stool C. difficile GDH Antigen & Toxins - Final 03/26/24 13:50 Stool Clostridioides difficile (PCR) - Final D/C Instructions Discharge Diet: Renal Diet Weight Bearing Status: Full weight bearing Meaningful Use Info Meaningful Use Meaningful Use Diagnoses (Choose all that apply): None applicable Ischemic Stroke Statin Dosing Therapy Reference: STATIN DOSE THERAPY REFERENCE: * Patients > 75 years receive moderate or high dose statin therapy. * Patients 75 years or YOUNGER should receive HIGH intensity statin dose unless contraindicated. You will be required to document reason for non-treatment if statin daily dose does not meet guidelines. HIGH DOSE STATIN THERAPY DAILY Atorvastatin > than or = to 40 mg Rosuvastatin > than or = to 20 mg Amlodipine + Atorvastatin > than or = to 2.5/40 mg Ezetimibe + Simvastatin 10/80 mg Simvastatin 80mg Discharge Plan Admission Admit Date/Time: 03/25/24 16:46 Primary Reason for Your Visit: encephalopathy Attending Provider: Raúl Perez Primary Care Provider: Raúl Eric Consulting Providers: Rachel Abraham; Billie Thompson Discharge Orders/Prescriptions Prescriptions: Continued paroxetine HCl 20 mg tablet 20 mg PO DAILY Patient Comments: TAKE 1 TABLET BY MOUTH EVERY DAY IN THE EVENING bupropion HCl 150 mg tablet extended release 24 hr 150 mg PO DAILY Patient Comments: TAKE 1 TABLET BY MOUTH EVERY DAY sennosides-docusate sodium [Stool Softener-Stimulant Laxat] 8.6-50 mg Tablet 2 tab PO BID PRN PRN (Reason: Constipation) Qty: 0 0RF ascorbic acid (vitamin C) [Vitamin C] 500 mg Tablet 500 mg PO BID clopidogrel 75 mg tablet 75 mg PO DAILY pantoprazole 40 mg tablet,delayed release (DR/EC) 40 mg PO BIDCM ferrous sulfate 325 mg (65 mg iron) tablet 325 mg PO .three times a week Patient Comments: takes three times a week, on Tuesday, and Tuesday insulin lispro [Humalog KwikPen Insulin] 100 unit/mL Insulin Pen See Protocol subcut TIDAC Qty: 0 0RF Protocol: 1. Sliding Scale Insulin Low Dosing Condition: 150-224 mg/dl = 1 unit Condition: 225-299 mg/dl = 2 units Condition: 300-374 mg/dl = 3 units Condition: 375-499 mg/dl = 4 units Condition: Greater than 449 call physician Protocol Text: - Use for Total Daily Dose of Insulin 15-27 units - Thin, elderly, renal patients LOW DOSING ALGORITHM insulin glargine-yfgn 100 unit/mL (3 mL) insulin pen 5 unit subcut QHS Qty: 15 0RF Rx Instructions: Hold if glucose less than 130 mg/dl gabapentin 100 mg capsule 100 mg PO .COMPLEX PRN (Reason: pain) Rx Instructions: 100 mg orally 3 times a week Tuesday, Tuesday and Tuesday cyclobenzaprine 5 mg tablet 5 mg PO TID PRN (Reason: muscle spasm) Qty: 21 0RF atorvastatin 40 mg tablet 40 mg PO DAILY carvedilol 25 mg tablet 25 mg PO BID buprenorphine 5 mcg/hour patch weekly 1 patch topical QWEEK calcium acetate(phosphat bind) 667 mg capsule 676 mg PO TID Patient Comments: TAKE 1 CAPSULE BY MOUTH THREE TIMES A DAY WITH FOOD folic acid 800 mcg tablet 0.8 mg PO DAILY Patient Comments: TAKE 1 TABLET BY MOUTH EVERY DAY levothyroxine 25 mcg tablet 25 mcg PO DAILY Patient Comments: TAKE 1 TABLET BY MOUTH EVERY DAY BEFORE BREAKFAST insulin aspart U-100 100 unit/mL (3 mL) insulin pen SUBCUT Patient Comments: PLEASE SEE ATTACHED FOR DETAILED DIRECTIONS olanzapine 5 mg tablet 5 mg PO QHS Patient Comments: TAKE 1 TABLET BY MOUTH EVERYDAY AT BEDTIME amlodipine 5 mg tablet 5 mg PO DAILY hydralazine 25 mg tablet 25 mg PO TID insulin glargine [Lantus Solostar U-100 Insulin] 100 unit/mL (3 mL) insulin pen 20 unit subcut DAILY lidocaine-silicone, adhesive topical Patient Comments: 1 patch daily melatonin 5 mg capsule 5 mg PO .bedtime insulin aspart U-100 [Novolog FlexPen U-100 Insulin] 6 unit subcut TID Patient Comments: give with meals ondansetron 4 mg tablet,disintegrating 4 mg PO DAILY PRN (Reason: nausea and vomiting) pramipexole dihydrochloride 1.5 mg PO BID isosorbide dinitrate 10 mg Tablet 20 mg PO TID acetaminophen 325 mg capsule 325 mg PO Q4H PRN (Reason: fever or pain) antacid extra assorted fruit tablets 750 mg PO .every 4 hours PRN (Reason: tums) calcitriol 0.5 mcg capsule 0.5 mcg PO .COMPLEX Rx Instructions: 0.5 mcg orally three times a week; cloNIDine See Rx Instructions .ROUTE .COMPLEX Rx Instructions: 0.1mg every 4 hours as needed diphenhydramine 25 mg IV Rx Instructions: every 30 minutes as needed. loperamide [Anti-Diarrheal (loperamide)] 2 mg capsule 2 mg PO Q4H PRN (Reason: loose stool) Rx Instructions: administer after each loose stool until symptoms controlled; do not exceed 8 mg per 24 hrs Mircera See Rx Instructions .ROUTE .COMPLEX Rx Instructions: intravenous every 2 weeks nitroglycerin [Nitrostat] 0.4 mg tablet, sublingual 0.4 mg sublingual Q5M Rx Instructions: do not exceed 3 doses per episode promethazine 25 mg tablet 25 mg PO Q4H PRN (Reason: nausea and vomiting) Venofer Rx Instructions: 50 mg one time a week. cefepime in dextrose 5 % 1 gram/50 mL piggyback 1 g IV .as directed Rx Instructions: Dose with dialysis sessions. 1gm on Tue, 2gm on , 1gm on , 2gm on Tuesday. Stop date 01/30/24. Dx: MSSA endocarditis. Weekly bmp and cbc. Fax to [phone]. aspirin 81 mg capsule 81 mg PO DAILY Qty: 30 1RF Referrals / Follow Up: Raúl Eric MD [Primary Care Provider] - 03/30/24 4:00 pm Disposition Disposition (needs filled in before D/C Order can be placed): Home, Self Care Charges/Coding Visit Charges Inpatient E&M: 76660 Disch Hosp >30min
== END 2024-03-27 10:33 | disposition home or self-care (01) ==
LOC: ED 16:19 → PCU 16:47
PROVIDERS: Admitting Provider Internal Medicine; Emergency Provider Emergency Medicine; PCP Family Medicine; Visit Provider Internal Medicine
DX: G93.40 Encephalopathy, unspecified (principal); I12.0 Hypertensive chronic kidney disease with stage 5 chronic kidney disease or end stage renal disease; N18.6 End stage renal disease; E11.22 Type 2 diabetes mellitus with diabetic chronic kidney disease; Z79.4 Long term (current) use of insulin; E11.42 Type 2 diabetes mellitus with diabetic polyneuropathy; Z99.2 Dependence on renal dialysis; Z79.02 Long term (current) use of antithrombotics/antiplatelets; I25.10 Atherosclerotic heart disease of native coronary artery without angina pectoris; E78.5 Hyperlipidemia, unspecified; Z79.82 Long term (current) use of aspirin; I25.5 Ischemic cardiomyopathy; D63.8 Anemia in other chronic diseases classified elsewhere; Z79.899 Other long term (current) drug therapy; F32.A Depression, unspecified; Z86.73 Personal history of transient ischemic attack (TIA), and cerebral infarction without residual deficits; G47.00 Insomnia, unspecified; K59.00 Constipation, unspecified; E03.9 Hypothyroidism, unspecified; Z79.890 Hormone replacement therapy; R19.7 Diarrhea, unspecified; R11.2 Nausea with vomiting, unspecified
CPT/HCPCS: 36415; 70450; 71045; 74246; 80048; 80053; 80076; 80307; 81001; 82140; 82803; 82962; 83735; 84100; 84443; 85025; 85610; 87493; 87506; 90937; 93005; 96372; 97162; 97166; 97802; 99221; 99285; J2997; J7030; A4216; G0257; G0378

== ENCOUNTER 2024-03-31 19:48 | Emergency (ER) | payer MEDICARE, MEDICAID, SELFPAY ==
[2018-09-21 13:23] VITALS: BMI 29.3
[2024-03-31 19:50] VITALS: BP 134/60; PULSE 83; RESP 18; TEMP 36.2; O2SAT 100
--- NOTE | 2024-03-31 20:16 | ED.VIS.BACK ---
[facility] <LOY Avina - Last Filed: 03/31/24 21:01> History of Present Illness Chief Complaint: Back Narrative Narrative: 58-year-old female presents with a flare of her chronic pain. It is located in her mid and lower back and both legs from a prior back infection and surgery about two years ago at [facility]. She states she has pain and numbness and tingling from diabetic neuropathy and takes gabapentin. She used to go to the pain management clinic with Dr. Fransisca Monge who recommended back injections but she states her surgeon did not want her to have these due to risk of infection. Pain management would not prescribe narcotic medications. She states her back and leg pain has been worse over the last 3 days with no clear cause. She has been ambulatory at home and doing ADLs and eating and drinking normally. She has ESRD on Tuesday and has not missed any sessions. She has no fever chills abdominal pain or bladder or bowel changes. [facility] <LOY Avina - Last Filed: 03/31/24 21:01> [facility] Medical History ESRD on dialysis Carotid artery stenosis MSSA bacteremia Chronic anemia ESRD on hemodialysis Osteomyelitis End stage renal disease Anemia in chronic illness Type 2 diabetes mellitus Foot osteomyelitis, left Chronic renal disease, stage 4, severely decreased glomerular filtration rate (GFR) between 15-29 mL/min/1.73 square meter Acute on chronic anemia Chronic ulcer of right foot with necrosis of bone Chronic kidney disease, stage 4 (severe) Diabetes mellitus with diabetic polyneuropathy CRF (chronic renal failure) Diabetic foot ulcers Cellulitis of both lower extremities Chronic kidney disease, stage 3b Osteomyelitis of metatarsal Charcot's joint, right ankle and foot Charcot's joint, left ankle and foot Cellulitis Acute lumbar radiculopathy Essential hypertension Adult failure to thrive Type 2 diabetes mellitus with diabetic polyneuropathy Elevated troponin COVID-19 (08/28/21) Chronic ulcer of right leg with fat layer exposed Ulcer of left foot with fat layer exposed Chronic ulcer of right foot with fat layer exposed Hyperparathyroidism, secondary renal Iron deficiency anemia Anemia due to chronic illness Stage 4 chronic kidney disease Bilateral edema of lower extremity Chronic foot pain Chronic ulcer of right foot with necrosis of muscle Non-pressure chronic 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 layer exposed Debility Charcot's joint of right foot Diabetes Non-smoker Myocardial infarct Hypertension TIA (transient ischemic attack) Amputation foot, bilat Non-pressure chronic ulcer of other part of left foot with fat layer exposed Type 2 diabetes mellitus with diabetic polyneuropathy 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 Ulcer of left foot with necrosis of muscle Chronic renal insufficiency Ulcer of left foot with muscle involvement without evidence of necrosis Anxiety and depression Diabetic infection of left foot Delayed wound healing Non-compliance Osteomyelitis of left foot Essential (primary) hypertension Diabetic polyneuropathy Ischemic cardiomyopathy Normocytic anemia Obesity (BMI 30.0-34.9) Type 2 diabetes mellitus with diabetic polyneuropathy Acquired varus deformity of left foot Acquired varus deformity of right foot Chronic ulcer of left foot with fat layer exposed Ulcer of right lower extremity with fat layer exposed Atherosclerosis of [place] coronary artery of [place] heart without angina pectoris Hemoglobin A1c greater than 9.0% Diabetic ulcer of right ankle NSTEMI (non-ST elevated myocardial infarction) (09/20/18) GERD (gastroesophageal reflux disease) HLD (hyperlipidemia) Back pain, chronic Diabetic foot ulcer associated with type 2 diabetes mellitus RLS (restless legs syndrome) Home Medications ?Medication ?Instructions ?Recorded ?Last Taken ?Type paroxetine HCl 20 mg tablet 20 mg PO DAILY DEPRESSION 07/07/21 04/07/22 History bupropion HCl 150 mg 24 hr tablet, 150 mg PO DAILY mood 02/04/22 04/07/22 History extended release sennosides 8.6 mg-docusate sodium 2 tab PO BID PRN PRN Constipation 04/24/22 Unknown Rx 50 mg tablet (Stool #0 tabs Softener-Stimulant Laxative) ascorbic acid (vitamin C) 500 mg 500 mg PO BID supplement 05/05/22 Unknown History tablet (Vitamin C) clopidogrel 75 mg tablet 75 mg PO DAILY prevent stroke 07/19/22 Unknown History ferrous sulfate 325 mg (65 mg 325 mg PO .three times a week 07/19/22 Unknown History iron) tablet anemia pantoprazole 40 mg tablet,delayed 40 mg PO BIDCM GERD 07/19/22 Unknown History release insulin glargine-yfgn 100 unit/mL 5 unit (0.05 mL) subcut QHS blood 07/21/22 Unknown Rx (3 mL) subcutaneous pen sugar #15 mL insulin lispro 100 unit/mL See Protocol subcut TIDAC #0 mL 07/21/22 Unknown Rx subcutaneous pen (Humalog KwikPen (U-100) Insulin) cyclobenzaprine 5 mg tablet 5 mg PO TID PRN muscle spasm #21 11/26/23 Unknown Rx tabs gabapentin 100 mg capsule 100 mg PO .COMPLEX PRN pain 11/26/23 Unknown History Mircera See Rx Instructions .Route 12/16/23 Unknown History .COMPLEX dialysis Venofer iron 12/16/23 Unknown History acetaminophen 325 mg capsule 325 mg PO Q4H PRN fever or pain 12/16/23 Unknown History amlodipine 5 mg tablet 5 mg PO DAILY bp 12/16/23 Unknown History antacid extra assorted fruit 750 mg PO .every 4 hours PRN tums 12/16/23 Unknown History tablets calcitriol 0.5 mcg capsule 0.5 mcg PO .COMPLEX on dialysis 12/16/23 Unknown History calcium acetate(phosphat bind) 667 676 mg PO TID is on dialysis 12/16/23 Unknown History mg capsule cloNIDine See Rx Instructions .Route 12/16/23 Unknown History .COMPLEX dialysis diphenhydramine 25 mg IV itching 12/16/23 Unknown History folic acid 800 mcg tablet 0.8 mg PO DAILY supplement 12/16/23 Unknown History hydralazine 25 mg tablet 25 mg PO TID bp 12/16/23 Unknown History insulin aspart U-100 6 unit subcut TID blood glucose 12/16/23 Unknown History insulin aspart U-100 100 unit/mL subcut 12/16/23 Unknown History (3 mL) subcutaneous pen insulin glargine 100 unit/mL (3 20 unit subcut DAILY blood glucose 12/16/23 Unknown History mL) subcutaneous pen (Lantus Solostar U-100 Insulin) isosorbide dinitrate 10 mg tablet 20 mg PO TID bp and heart 12/16/23 Unknown History levothyroxine 25 mcg tablet 25 mcg PO DAILY thyroid 12/16/23 Unknown History lidocaine-silicone, adhesive topical pain 12/16/23 Unknown History loperamide 2 mg capsule 2 mg PO Q4H PRN loose stool 12/16/23 Unknown History (Anti-Diarrheal (loperamide)) melatonin 5 mg capsule 5 mg PO .bedtime sleep 12/16/23 Unknown History nitroglycerin 0.4 mg sublingual 0.4 mg sublingual Q5M chest pain 12/16/23 Unknown History tablet (Nitrostat) olanzapine 5 mg tablet 5 mg PO QHS sleep 12/16/23 Unknown History ondansetron 4 mg disintegrating 4 mg PO DAILY PRN nausea and 12/16/23 Unknown History tablet vomiting pramipexole dihydrochloride 1.5 mg PO BID unknown 12/16/23 Unknown History promethazine 25 mg tablet 25 mg PO Q4H PRN nausea and 12/16/23 Unknown History vomiting aspirin 81 mg capsule 81 mg PO DAILY #30 caps 12/26/23 Unknown Rx cefepime 1 gram/50 mL in dextrose 1 g IV .as directed 12/26/23 Unknown Rx 5 % intravenous piggyback atorvastatin 40 mg tablet 40 mg PO DAILY 03/18/24 Unknown History buprenorphine 5 mcg/hour weekly 1 patch topical QWEEK 03/18/24 Unknown History transdermal patch carvedilol 25 mg tablet 25 mg PO BID 03/18/24 Unknown History Allergy/AdvReac Type Severity Reaction Status Date / Time Penicillins Allergy swelling Verified 03/18/24 20:05 in throat vancomycin Allergy Itching Verified 03/18/24 20:05 metronidazole AdvReac Nausea Verified 03/18/24 20:05 oxycodone (From OxyContin) AdvReac Shortness Verified 03/18/24 20:05 of breath Family History Mother Diabetes CVA (cerebral vascular accident) Brother CAD (coronary artery disease) CABG X 3 Cancer testicular Diabetes Brother CAD (coronary artery disease) CABG X3 Diabetes Brother CAD (coronary artery disease) Stents Diabetes Sister CAD (coronary artery disease) CABG x 3 CVA (cerebral vascular accident) Diabetes Surgical History History of History of foot surgery History of bilateral carpal tunnel release History of rotator cuff surgery History of coronary artery stent placement (12/31/20) Social History household members: none number of children: 2 current occupational status: disabled Smoking Status: Never smoker alcohol intake: never substance use type: does not use caffeine: Yes Type: carbonated beverages Number of servings: 2 ROS <LOY Avina - Last Filed: 03/31/24 21:01> ROS ED ROS Narrative Constitutional: Negative for fever, chills, malaise. GI: Negative for abdominal pain, nausea, vomiting, diarrhea, constipation, melena, hematochezia. : Negative for dysuria, hematuria or frequency. EXAM <LOY Avina - Last Filed: 03/31/24 21:01> Physical Exam Narrative Exam Narrative: CONST: Patient sitting in no acute distress. EYES: Normal inspection. NECK: Normal inspection. RESP: No respiratory distress, CTAB. CVS: Regular rate and rhythm, no murmur, no gallop. ABD: Soft and nontender, no guarding or rebound, nondistended. Back: Normal inspection, prior midline thoracic or lumbar surgical scar. No midline tenderness. SKIN: Color normal, no rash, warm, dry, intact. EXTREMITIES: Normal appearance, 5/5 strength in bilateral hip flexion and DF/PF. 2+ PT pulses. NEURO: Alert and answering questions appropriately. PSYCH: Normal affect. Const Vital Signs: 03/31/24 19:50 03/31/24 20:47 Temperature 97.2 F L 97.2 F L Temperature Source Temporal Pulse Rate 83 85 Respiratory Rate 18 16 Blood Pressure 134/60 H 130/72 H Blood Pressure Mean 84 91 Pulse Ox 100 95 Oxygen Delivery Method Room Air <Dr. Sachin Schmitz MD - Last Filed: 03/31/24 20:46> Physical Exam Const Vital Signs: 03/31/24 19:50 03/31/24 20:47 Temperature 97.2 F L 97.2 F L Temperature Source Temporal Pulse Rate 83 85 Respiratory Rate 18 16 Blood Pressure 134/60 H 130/72 H Blood Pressure Mean 84 91 Pulse Ox 100 95 Oxygen Delivery Method Room Air MDM <LOY Avina - Last Filed: 03/31/24 21:01> MDM MDM Narrative Medical decision making narrative: I have personally performed a face to face assessment of the patient and have reviewed the WILL Note. I performed a substantive portion of the visit including all aspects of the following. My rodriguez findings include: History is 58-year-old female chronic pain. She had prior back surgery years ago developed a back infection. She has chronic pain. She sees pain management who does not write her for narcotics. They have offered her injections which her spine surgeon told her not to get due to her risk of infection. She denies any constitutional symptoms. This is just her chronic pain. Exam is [58-year-old female vital signs stable afebrile. No distress. H EENT exam unremarkable. Lungs clear. Heart regular rhythm no murmur. Rate about 80. Chest wall and ribs nontender. Abdomen soft nontender. Moving all 4 extremities. Back there is multiple prior back surgical scars. They are all clean and dry. There is no redness or warmth. There is no reproducible pain. She is awake and alert.] Medical Decision Making [patient is well-known to this department. She will be given 1 oral [place] and discharged home. She understands we cannot give her chronic narcotic pain prescriptions for home. She does not need labs or imaging today.] Other additions or changes: [None] <Dr. Sachin Schmitz MD - Last Filed: 03/31/24 20:46> MDM MDM Narrative Medical decision making narrative: I have personally performed a face to face assessment of the patient and have reviewed the WILL Note. I performed a substantive portion of the visit including all aspects of the following. My rodriguez findings include: History is 58-year-old female chronic pain. She had prior back surgery years ago developed a back infection. She has chronic pain. She sees pain management who does not write her for narcotics. They have offered her injections which her spine surgeon told her not to get due to her risk of infection. She denies any constitutional symptoms. This is just her chronic pain. Exam is [58-year-old female vital signs stable afebrile. No distress. H EENT exam unremarkable. Lungs clear. Heart regular rhythm no murmur. Rate about 80. Chest wall and ribs nontender. Abdomen soft nontender. Moving all 4 extremities. Back there is multiple prior back surgical scars. They are all clean and dry. There is no redness or warmth. There is no reproducible pain. She is awake and alert.] Medical Decision Making [patient is well-known to this department. She will be given 1 oral pain medication discharged home. She understands we cannot give her chronic narcotic pain prescriptions for home. She does not need labs or imaging today.] Other additions or changes: [None] History & Record Review Discussion w/independent historian: Patient Additional record(s) reviewed:: Prior inpatient record, Prior outpatient record, Prior ED visit and Prior labs Discharge Plan Triage Chief Complaint: Back ED Midlevel Provider: Lexie Kovacs ED Provider: Sachin Schmitz Dx/Rx/DC Orders Clinical Impression: Acute exacerbation of chronic low back pain Instructions: ED Back Pain (Acute or Chronic) Prescriptions: No Action paroxetine HCl 20 mg tablet 20 mg PO DAILY Patient Comments: TAKE 1 TABLET BY MOUTH EVERY DAY IN THE EVENING bupropion HCl 150 mg tablet extended release 24 hr 150 mg PO DAILY Patient Comments: TAKE 1 TABLET BY MOUTH EVERY DAY sennosides-docusate sodium [Stool Softener-Stimulant Laxat] 8.6-50 mg Tablet 2 tab PO BID PRN PRN (Reason: Constipation) Qty: 0 0RF ascorbic acid (vitamin C) [Vitamin C] 500 mg Tablet 500 mg PO BID clopidogrel 75 mg tablet 75 mg PO DAILY pantoprazole 40 mg tablet,delayed release (DR/EC) 40 mg PO BIDCM ferrous sulfate 325 mg (65 mg iron) tablet 325 mg PO .three times a week Patient Comments: takes three times a week, on Tuesday, and Tuesday insulin lispro [Humalog KwikPen Insulin] 100 unit/mL Insulin Pen See Protocol subcut TIDAC Qty: 0 0RF Protocol: 1. Sliding Scale Insulin Low Dosing Condition: 150-224 mg/dl = 1 unit Condition: 225-299 mg/dl = 2 units Condition: 300-374 mg/dl = 3 units Condition: 375-499 mg/dl = 4 units Condition: Greater than 449 call physician Protocol Text: - Use for Total Daily Dose of Insulin 15-27 units - Thin, elderly, renal patients LOW DOSING ALGORITHM insulin glargine-yfgn 100 unit/mL (3 mL) insulin pen 5 unit subcut QHS Qty: 15 0RF Rx Instructions: Hold if glucose less than 130 mg/dl gabapentin 100 mg capsule 100 mg PO .COMPLEX PRN (Reason: pain) Rx Instructions: 100 mg orally 3 times a week Tuesday, Tuesday and Tuesday cyclobenzaprine 5 mg tablet 5 mg PO TID PRN (Reason: muscle spasm) Qty: 21 0RF atorvastatin 40 mg tablet 40 mg PO DAILY carvedilol 25 mg tablet 25 mg PO BID buprenorphine 5 mcg/hour patch weekly 1 patch topical QWEEK calcium acetate(phosphat bind) 667 mg capsule 676 mg PO TID Patient Comments: TAKE 1 CAPSULE BY MOUTH THREE TIMES A DAY WITH FOOD folic acid 800 mcg tablet 0.8 mg PO DAILY Patient Comments: TAKE 1 TABLET BY MOUTH EVERY DAY levothyroxine 25 mcg tablet 25 mcg PO DAILY Patient Comments: TAKE 1 TABLET BY MOUTH EVERY DAY BEFORE BREAKFAST insulin aspart U-100 100 unit/mL (3 mL) insulin pen SUBCUT Patient Comments: PLEASE SEE ATTACHED FOR DETAILED DIRECTIONS olanzapine 5 mg tablet 5 mg PO QHS Patient Comments: TAKE 1 TABLET BY MOUTH EVERYDAY AT BEDTIME amlodipine 5 mg tablet 5 mg PO DAILY hydralazine 25 mg tablet 25 mg PO TID insulin glargine [Lantus Solostar U-100 Insulin] 100 unit/mL (3 mL) insulin pen 20 unit subcut DAILY lidocaine-silicone, adhesive topical Patient Comments: 1 patch daily melatonin 5 mg capsule 5 mg PO .bedtime insulin aspart U-100 [Novolog FlexPen U-100 Insulin] 6 unit subcut TID Patient Comments: give with meals ondansetron 4 mg tablet,disintegrating 4 mg PO DAILY PRN (Reason: nausea and vomiting) pramipexole dihydrochloride 1.5 mg PO BID isosorbide dinitrate 10 mg Tablet 20 mg PO TID acetaminophen 325 mg capsule 325 mg PO Q4H PRN (Reason: fever or pain) antacid extra assorted fruit tablets 750 mg PO .every 4 hours PRN (Reason: tums) calcitriol 0.5 mcg capsule 0.5 mcg PO .COMPLEX Rx Instructions: 0.5 mcg orally three times a week; cloNIDine See Rx Instructions .ROUTE .COMPLEX Rx Instructions: 0.1mg every 4 hours as needed diphenhydramine 25 mg IV Rx Instructions: every 30 minutes as needed. loperamide [Anti-Diarrheal (loperamide)] 2 mg capsule 2 mg PO Q4H PRN (Reason: loose stool) Rx Instructions: administer after each loose stool until symptoms controlled; do not exceed 8 mg per 24 hrs Mircera See Rx Instructions .ROUTE .COMPLEX Rx Instructions: intravenous every 2 weeks nitroglycerin [Nitrostat] 0.4 mg tablet, sublingual 0.4 mg sublingual Q5M Rx Instructions: do not exceed 3 doses per episode promethazine 25 mg tablet 25 mg PO Q4H PRN (Reason: nausea and vomiting) Venofer Rx Instructions: 50 mg one time a week. cefepime in dextrose 5 % 1 gram/50 mL piggyback 1 g IV .as directed Rx Instructions: Dose with dialysis sessions. 1gm on Tue, 2gm on , 1gm on , 2gm on Tuesday. Stop date 01/30/24. Dx: MSSA endocarditis. Weekly bmp and cbc. Fax to [phone]. aspirin 81 mg capsule 81 mg PO DAILY Qty: 30 1RF Primary Care Provider: Raúl Eric Referrals: Raúl Eric MD [Primary Care Provider] - Activity Restrictions/Additional Instructions: Follow-up with your primary care doctor, pain management or the back surgeon. You should pursue physical therapy as they suggested. Take Tylenol as needed. Print Language: Faroese Disposition Disposition: Home, Self Care Discharge Date/Time: 03/31/24 20:57
[2024-03-31 20:47] VITALS: BP 130/72; PULSE 85; RESP 16; TEMP 36.2; O2SAT 95
[2024-03-31] MEDS: HYDROcodone Bitartrate/Apap 5/325 Tablet PO (20:55)
== END 2024-03-31 20:57 | disposition home or self-care (01) ==
PROVIDERS: Emergency Provider Emergency Medicine; PCP Family Medicine; Visit Provider Emergency Medicine
DX: M54.50 Low back pain, unspecified (principal); I12.0 Hypertensive chronic kidney disease with stage 5 chronic kidney disease or end stage renal disease; N18.6 End stage renal disease; Z79.4 Long term (current) use of insulin; E11.40 Type 2 diabetes mellitus with diabetic neuropathy, unspecified; E11.22 Type 2 diabetes mellitus with diabetic chronic kidney disease; G89.29 Other chronic pain; Z99.2 Dependence on renal dialysis; Z79.82 Long term (current) use of aspirin; Z79.01 Long term (current) use of anticoagulants; Z79.890 Hormone replacement therapy; Z79.899 Other long term (current) drug therapy
CPT/HCPCS: 99282

== ENCOUNTER 2024-04-19 20:28 | Emergency (ER) | payer MEDICARE, MEDICAID, SELFPAY ==
[2018-09-21 13:23] VITALS: BMI 29.3
[2024-04-19 20:30] VITALS: BP 97/68; PULSE 95; RESP 22; TEMP 36.3; O2SAT 95; BMI 27.9
--- NOTE | 2024-04-19 20:52 | EDS_ITS ---
HPI <LOY Avina - Last Filed: 04/19/24 22:07> History of Present Illness Chief Complaint: Back Narrative Narrative: 58-year-old female with PMH of HTN, HLD, DM2, ESRD on HD, chronic back pain presents via EMS from home. Her niece who does not live with her called EMS and when they arrived the patient stated she was in pain so she was transported here. She does not know why her niece called the paramedics. The patient had back surgery with a subsequent infection a few years ago that was done at [facility]. She has chronic back and bilateral low back pain. She states over the last week she developed open sores on the soles of both feet. She is concerned she has an infection. She complains of chills. No fever. She does not take any pain medication. She used to see Dr. Matute at the pain management clinic who recommended injections but she states her previous back surgeon did not want her to have these due to risk of infection. She has had no recent trauma or falls. [facility] <LOY Avina - Last Filed: 04/19/24 22:07> [facility] Medical History ESRD on dialysis Carotid artery stenosis MSSA bacteremia Chronic anemia ESRD on hemodialysis Osteomyelitis End stage renal disease Anemia in chronic illness Type 2 diabetes mellitus Foot osteomyelitis, left Chronic renal disease, stage 4, severely decreased glomerular filtration rate (GFR) between 15-29 mL/min/1.73 square meter Acute on chronic anemia Chronic ulcer of right foot with necrosis of bone Chronic kidney disease, stage 4 (severe) Diabetes mellitus with diabetic polyneuropathy CRF (chronic renal failure) Diabetic foot ulcers Cellulitis of both lower extremities Chronic kidney disease, stage 3b Osteomyelitis of metatarsal Charcot's joint, right ankle and foot Charcot's joint, left ankle and foot Cellulitis Acute lumbar radiculopathy Essential hypertension Adult failure to thrive Type 2 diabetes mellitus with diabetic polyneuropathy Elevated troponin COVID-19 (08/28/21) Chronic ulcer of right leg with fat layer exposed Ulcer of left foot with fat layer exposed Chronic ulcer of right foot with fat layer exposed Hyperparathyroidism, secondary renal Iron deficiency anemia Anemia due to chronic illness Stage 4 chronic kidney disease Bilateral edema of lower extremity Chronic foot pain Chronic ulcer of right foot with necrosis of muscle Non-pressure chronic 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 layer exposed Debility Charcot's joint of right foot Diabetes Non-smoker Myocardial infarct Hypertension TIA (transient ischemic attack) Amputation foot, bilat Non-pressure chronic ulcer of other part of left foot with fat layer exposed Type 2 diabetes mellitus with diabetic polyneuropathy 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 Ulcer of left foot with necrosis of muscle Chronic renal insufficiency Ulcer of left foot with muscle involvement without evidence of necrosis Anxiety and depression Diabetic infection of left foot Delayed wound healing Non-compliance Osteomyelitis of left foot Essential (primary) hypertension Diabetic polyneuropathy Ischemic cardiomyopathy Normocytic anemia Obesity (BMI 30.0-34.9) Type 2 diabetes mellitus with diabetic polyneuropathy Acquired varus deformity of left foot Acquired varus deformity of right foot Chronic ulcer of left foot with fat layer exposed Ulcer of right lower extremity with fat layer exposed Atherosclerosis of [place] coronary artery of [place] heart without angina pectoris Hemoglobin A1c greater than 9.0% Diabetic ulcer of right ankle NSTEMI (non-ST elevated myocardial infarction) (09/20/18) GERD (gastroesophageal reflux disease) HLD (hyperlipidemia) Back pain, chronic Diabetic foot ulcer associated with type 2 diabetes mellitus RLS (restless legs syndrome) Home Medications ?Medication ?Instructions ?Recorded ?Last Taken ?Type paroxetine HCl 20 mg tablet 20 mg PO DAILY DEPRESSION 07/07/21 04/07/22 History bupropion HCl 150 mg 24 hr tablet, 150 mg PO DAILY mood 02/04/22 04/07/22 History extended release sennosides 8.6 mg-docusate sodium 2 tab PO BID PRN PRN Constipation 04/24/22 Unknown Rx 50 mg tablet (Stool #0 tabs Softener-Stimulant Laxative) ascorbic acid (vitamin C) 500 mg 500 mg PO BID supplement 05/05/22 Unknown History tablet (Vitamin C) clopidogrel 75 mg tablet 75 mg PO DAILY prevent stroke 07/19/22 Unknown History ferrous sulfate 325 mg (65 mg 325 mg PO .three times a week 07/19/22 Unknown History iron) tablet anemia pantoprazole 40 mg tablet,delayed 40 mg PO BIDCM GERD 07/19/22 Unknown History release insulin glargine-yfgn 100 unit/mL 5 unit (0.05 mL) subcut QHS blood 07/21/22 Unknown Rx (3 mL) subcutaneous pen sugar #15 mL insulin lispro 100 unit/mL See Protocol subcut TIDAC #0 mL 07/21/22 Unknown Rx subcutaneous pen (Humalog KwikPen (U-100) Insulin) cyclobenzaprine 5 mg tablet 5 mg PO TID PRN muscle spasm #21 11/26/23 Unknown Rx tabs gabapentin 100 mg capsule 100 mg PO .COMPLEX PRN pain 11/26/23 Unknown History Mircera See Rx Instructions .Route 12/16/23 Unknown History .COMPLEX dialysis Venofer iron 12/16/23 Unknown History acetaminophen 325 mg capsule 325 mg PO Q4H PRN fever or pain 12/16/23 Unknown History amlodipine 5 mg tablet 5 mg PO DAILY bp 12/16/23 Unknown History antacid extra assorted fruit 750 mg PO .every 4 hours PRN tums 12/16/23 Unknown History tablets calcitriol 0.5 mcg capsule 0.5 mcg PO .COMPLEX on dialysis 12/16/23 Unknown History calcium acetate(phosphat bind) 667 676 mg PO TID is on dialysis 12/16/23 Unknown History mg capsule cloNIDine See Rx Instructions .Route 12/16/23 Unknown History .COMPLEX dialysis diphenhydramine 25 mg IV itching 12/16/23 Unknown History folic acid 800 mcg tablet 0.8 mg PO DAILY supplement 12/16/23 Unknown History hydralazine 25 mg tablet 25 mg PO TID bp 12/16/23 Unknown History insulin aspart U-100 6 unit subcut TID blood glucose 12/16/23 Unknown History insulin aspart U-100 100 unit/mL subcut 12/16/23 Unknown History (3 mL) subcutaneous pen insulin glargine 100 unit/mL (3 20 unit subcut DAILY blood glucose 12/16/23 Unknown History mL) subcutaneous pen (Lantus Solostar U-100 Insulin) isosorbide dinitrate 10 mg tablet 20 mg PO TID bp and heart 12/16/23 Unknown History levothyroxine 25 mcg tablet 25 mcg PO DAILY thyroid 12/16/23 Unknown History lidocaine-silicone, adhesive topical pain 12/16/23 Unknown History loperamide 2 mg capsule 2 mg PO Q4H PRN loose stool 12/16/23 Unknown History (Anti-Diarrheal (loperamide)) melatonin 5 mg capsule 5 mg PO .bedtime sleep 12/16/23 Unknown History nitroglycerin 0.4 mg sublingual 0.4 mg sublingual Q5M chest pain 12/16/23 Unknown History tablet (Nitrostat) olanzapine 5 mg tablet 5 mg PO QHS sleep 12/16/23 Unknown History ondansetron 4 mg disintegrating 4 mg PO DAILY PRN nausea and 12/16/23 Unknown History tablet vomiting pramipexole dihydrochloride 1.5 mg PO BID unknown 12/16/23 Unknown History promethazine 25 mg tablet 25 mg PO Q4H PRN nausea and 12/16/23 Unknown History vomiting aspirin 81 mg capsule 81 mg PO DAILY #30 caps 12/26/23 Unknown Rx cefepime 1 gram/50 mL in dextrose 1 g IV .as directed 12/26/23 Unknown Rx 5 % intravenous piggyback atorvastatin 40 mg tablet 40 mg PO DAILY 03/18/24 Unknown History buprenorphine 5 mcg/hour weekly 1 patch topical QWEEK 03/18/24 Unknown History transdermal patch carvedilol 25 mg tablet 25 mg PO BID 03/18/24 Unknown History clindamycin HCl 150 mg capsule 450 mg (3 x 150 mg) PO TID 7 days 04/19/24 Unknown Rx #63 CAPSULES Allergy/AdvReac Type Severity Reaction Status Date / Time Penicillins Allergy swelling Verified 03/18/24 20:05 in throat vancomycin Allergy Itching Verified 03/18/24 20:05 metronidazole AdvReac Nausea Verified 03/18/24 20:05 oxycodone (From OxyContin) AdvReac Shortness Verified 03/18/24 20:05 of breath Family History Mother Diabetes CVA (cerebral vascular accident) Brother CAD (coronary artery disease) CABG X 3 Cancer testicular Diabetes Brother CAD (coronary artery disease) CABG X3 Diabetes Brother CAD (coronary artery disease) Stents Diabetes Sister CAD (coronary artery disease) CABG x 3 CVA (cerebral vascular accident) Diabetes Surgical History History of History of foot surgery History of bilateral carpal tunnel release History of rotator cuff surgery History of coronary artery stent placement (12/31/20) Social History household members: none number of children: 2 current occupational status: disabled Smoking Status: Never smoker alcohol intake: never substance use type: does not use caffeine: Yes Type: carbonated beverages Number of servings: 2 ROS <LOY Avina - Last Filed: 04/19/24 22:07> ROS ED ROS Narrative Constitutional: Positive for chills. Negative for fever. GI: Negative for nausea, vomiting. Neuro: Negative for new motor/sensory dysfunction. Skin: Positive for ulcers. EXAM <LOY Avina - Last Filed: 04/19/24 22:07> Physical Exam Narrative Exam Narrative: CONST: Patient sitting in no acute distress. EYES: Normal inspection. NECK: Normal inspection. RESP: No respiratory distress, CTAB. CVS: Regular rate and rhythm, no murmur, no gallop. ABD: Soft and nontender, no guarding or rebound, nondistended. Back: Normal inspection, large midline surgical scar extending down the leg: Thoracic and lumbar spine, no erythema or warmth. EXTREMITIES: 5/5 strength in bilateral hip flexion, knee flexion/extension and DF/PF. Lower extremities feel warm but do not have erythema. Trace bilateral ankle edema. The right lateral sole has 3 x 2 cm ulcer with light yellow skin edges. No fluctuance or crepitus, no drainage or odor. Similar 2 x 2 centimeter ulcer left lateral sole. NEURO: Alert and answering questions appropriately. PSYCH: Normal affect. Const Vital Signs: 04/19/24 20:30 04/19/24 22:21 Temperature 97.4 F L 98.6 F Temperature Source Oral Pulse Rate 95 85 Respiratory Rate 22 H 20 H Blood Pressure 97/68 106/79 Blood Pressure Mean 77 88 Pulse Ox 95 96 <Rik Guadalupe MD - Last Filed: 04/19/24 22:40> Physical Exam Const Vital Signs: 04/19/24 20:30 04/19/24 22:21 Temperature 97.4 F L 98.6 F Temperature Source Oral Pulse Rate 95 85 Respiratory Rate 22 H 20 H Blood Pressure 97/68 106/79 Blood Pressure Mean 77 88 Pulse Ox 95 96 MDM <LOY Avina - Last Filed: 04/19/24 22:07> MDM MDM Narrative Medical decision making narrative: 58-year-old female has states over the last week she has developed open ulcers on both feet. She is concerned about these becoming infected because she has had osteomyelitis in the past. She is diabetic and on dialysis. She appears well and nontoxic. Initial BP was 97/68 with otherwise normal vital signs but when I was in the room her blood pressure was 138/70 and this was prior to IV fluids. She has chronic neuropathy in the feet but otherwise lower extremity MSPs are intact. There are small open ulcers on both soles with no acute signs of cellulitis or abscess. Labs show normal white count of 6.8, lactate 1.0. Glucose is 199 which is around her baseline. She has normal electrolytes and stable end-stage renal disease. Since her foot ulcers are superficial they do not require x-rays. They were cleansed and dressed. At this time there is no active signs of infection but with her history of diabetes and remote osteomyelitis I prescribed clindamycin with first dose given here. She was given a single [place] for her chronic back pain and advised to take Tylenol at home. She is a patient of Dr. Guadarrama and needs to call and make an appointment for close podiatric follow-up. Return precautions discussed. She was discharged in stable condition. Lab Data Attestation: I reviewed the patient's lab results. Labs: Laboratory Results - last 24 hr 04/19/24 21:03 WBC 6.8 RBC 3.27 L Hgb 9.8 L Hct 30.7 L MCV 93.9 MCH 30.0 MCHC 31.9 L RDW Std Deviation 51.1 H RDW Coeff of Fior 14.9 H Plt Count 268 MPV 10.5 Immature Gran % (Auto) 0.100 Neut % (Auto) 72.3 H Lymph % (Auto) 16.1 L [place] % (Auto) 9.0 Eos % (Auto) 1.9 Baso % (Auto) 0.6 Absolute Neuts (auto) 4.9 Absolute Lymphs (auto) 1.09 Nucleated RBC % 0 Sodium 139 Potassium 3.5 Chloride 100 Carbon Dioxide 31.0 Anion Gap 8 BUN 31 H Creatinine 5.41 H Estim Creat Clear Calc 11.57 Est GFR (MDRD) Af Amer 10 L Est GFR (MDRD) Non-Af 9 L BUN/Creatinine Ratio 5.7 L Glucose 199 H Lactic Acid 1.0 Calcium 7.8 L <Rik Guadalupe MD - Last Filed: 04/19/24 22:40> MDM History & Record Review Discussion w/independent historian: Patient Lab Data Labs: Laboratory Results - last 24 hr 04/19/24 21:03 WBC 6.8 RBC 3.27 L Hgb 9.8 L Hct 30.7 L MCV 93.9 MCH 30.0 MCHC 31.9 L RDW Std Deviation 51.1 H RDW Coeff of [place] 14.9 H Plt Count 268 MPV 10.5 Immature Gran % (Auto) 0.100 Neut % (Auto) 72.3 H Lymph % (Auto) 16.1 L [place] % (Auto) 9.0 Eos % (Auto) 1.9 Baso % (Auto) 0.6 Absolute Neuts (auto) 4.9 Absolute Lymphs (auto) 1.09 Nucleated RBC % 0 Sodium 139 Potassium 3.5 Chloride 100 Carbon Dioxide 31.0 Anion Gap 8 BUN 31 H Creatinine 5.41 H Estim Creat Clear Calc 11.57 Est GFR (MDRD) Af Amer 10 L Est GFR (MDRD) Non-Af 9 L BUN/Creatinine Ratio 5.7 L Glucose 199 H Lactic Acid 1.0 Calcium 7.8 L Treatment and Re-Evaluation Narrative: Dr. Guadalupe: I have personally performed a face to face assessment of the patient and have reviewed the WILL Note. I performed a substantive portion of the visit including all aspects of the following. My rodriguez findings include: History is patient presents for exacerbation of chronic back pain, as well as bilateral diabetic foot ulcers. [place] chilled yesterday, concern for sepsis. Exam is afebrile. Vital signs noted. Nontoxic-appearing. Regular rate and rhythm. Lungs clear to auscultation bilaterally. Positive bilateral diabetic foot ulcerations without purulent drainage or profound erythema. Medical Decision Making: Check blood pressure. Normotensive currently. Check laboratory work. No white count, no fever, lactic acid normal. Discharged on oral antibiotics. She was told that narcotic pain medications need to come from pain management for her chronic back pain. Discharge. Follow-up with podiatry who she has seen in the past. Other additions or changes: [None] Discharge Plan Triage Chief Complaint: Back Other Complaint: Wound ED Midlevel Provider: Lexie Kovacs ED Provider: Rik Guadalupe Dx/Rx/DC Orders Clinical Impression: Bilateral diabetic foot ulcer associated with secondary diabetes mellitus, Chronic back pain, History of end stage renal disease Instructions: Diabetes Foot Infections Tx Prescriptions: New clindamycin HCl 150 mg capsule 450 mg PO TID 7 Days Qty: 63 0RF No Action paroxetine HCl 20 mg tablet 20 mg PO DAILY Patient Comments: TAKE 1 TABLET BY MOUTH EVERY DAY IN THE EVENING bupropion HCl 150 mg tablet extended release 24 hr 150 mg PO DAILY Patient Comments: TAKE 1 TABLET BY MOUTH EVERY DAY sennosides-docusate sodium [Stool Softener-Stimulant Laxat] 8.6-50 mg Tablet 2 tab PO BID PRN PRN (Reason: Constipation) Qty: 0 0RF ascorbic acid (vitamin C) [Vitamin C] 500 mg Tablet 500 mg PO BID clopidogrel 75 mg tablet 75 mg PO DAILY pantoprazole 40 mg tablet,delayed release (DR/EC) 40 mg PO BIDCM ferrous sulfate 325 mg (65 mg iron) tablet 325 mg PO .three times a week Patient Comments: takes three times a week, on Tuesday, and Tuesday insulin lispro [Humalog KwikPen Insulin] 100 unit/mL Insulin Pen See Protocol subcut TIDAC Qty: 0 0RF Protocol: 1. Sliding Scale Insulin Low Dosing Condition: 150-224 mg/dl = 1 unit Condition: 225-299 mg/dl = 2 units Condition: 300-374 mg/dl = 3 units Condition: 375-499 mg/dl = 4 units Condition: Greater than 449 call physician Protocol Text: - Use for Total Daily Dose of Insulin 15-27 units - Thin, elderly, renal patients LOW DOSING ALGORITHM insulin glargine-yfgn 100 unit/mL (3 mL) insulin pen 5 unit subcut QHS Qty: 15 0RF Rx Instructions: Hold if glucose less than 130 mg/dl gabapentin 100 mg capsule 100 mg PO .COMPLEX PRN (Reason: pain) Rx Instructions: 100 mg orally 3 times a week Tuesday, Tuesday and Tuesday cyclobenzaprine 5 mg tablet 5 mg PO TID PRN (Reason: muscle spasm) Qty: 21 0RF atorvastatin 40 mg tablet 40 mg PO DAILY carvedilol 25 mg tablet 25 mg PO BID buprenorphine 5 mcg/hour patch weekly 1 patch topical QWEEK calcium acetate(phosphat bind) 667 mg capsule 676 mg PO TID Patient Comments: TAKE 1 CAPSULE BY MOUTH THREE TIMES A DAY WITH FOOD folic acid 800 mcg tablet 0.8 mg PO DAILY Patient Comments: TAKE 1 TABLET BY MOUTH EVERY DAY levothyroxine 25 mcg tablet 25 mcg PO DAILY Patient Comments: TAKE 1 TABLET BY MOUTH EVERY DAY BEFORE BREAKFAST insulin aspart U-100 100 unit/mL (3 mL) insulin pen SUBCUT Patient Comments: PLEASE SEE ATTACHED FOR DETAILED DIRECTIONS olanzapine 5 mg tablet 5 mg PO QHS Patient Comments: TAKE 1 TABLET BY MOUTH EVERYDAY AT BEDTIME amlodipine 5 mg tablet 5 mg PO DAILY hydralazine 25 mg tablet 25 mg PO TID insulin glargine [Lantus Solostar U-100 Insulin] 100 unit/mL (3 mL) insulin pen 20 unit subcut DAILY lidocaine-silicone, adhesive topical Patient Comments: 1 patch daily melatonin 5 mg capsule 5 mg PO .bedtime insulin aspart U-100 [Novolog FlexPen U-100 Insulin] 6 unit subcut TID Patient Comments: give with meals ondansetron 4 mg tablet,disintegrating 4 mg PO DAILY PRN (Reason: nausea and vomiting) pramipexole dihydrochloride 1.5 mg PO BID isosorbide dinitrate 10 mg Tablet 20 mg PO TID acetaminophen 325 mg capsule 325 mg PO Q4H PRN (Reason: fever or pain) antacid extra assorted fruit tablets 750 mg PO .every 4 hours PRN (Reason: tums) calcitriol 0.5 mcg capsule 0.5 mcg PO .COMPLEX Rx Instructions: 0.5 mcg orally three times a week; cloNIDine See Rx Instructions .ROUTE .COMPLEX Rx Instructions: 0.1mg every 4 hours as needed diphenhydramine 25 mg IV Rx Instructions: every 30 minutes as needed. loperamide [Anti-Diarrheal (loperamide)] 2 mg capsule 2 mg PO Q4H PRN (Reason: loose stool) Rx Instructions: administer after each loose stool until symptoms controlled; do not exceed 8 mg per 24 hrs Mircera See Rx Instructions .ROUTE .COMPLEX Rx Instructions: intravenous every 2 weeks nitroglycerin [Nitrostat] 0.4 mg tablet, sublingual 0.4 mg sublingual Q5M Rx Instructions: do not exceed 3 doses per episode promethazine 25 mg tablet 25 mg PO Q4H PRN (Reason: nausea and vomiting) Venofer Rx Instructions: 50 mg one time a week. cefepime in dextrose 5 % 1 gram/50 mL piggyback 1 g IV .as directed Rx Instructions: Dose with dialysis sessions. 1gm on Tue, 2gm on , 1gm on , 2gm on Tuesday. Stop date 01/30/24. Dx: MSSA endocarditis. Weekly bmp and cbc. Fax to [phone]. 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 Guadarrama for an appointment for your foot ulcers. At this time they do not look infected but we have placed you on an antibiotic. Take Tylenol as needed for pain. KEEP CLEAN Print Language: [place]ian Disposition Disposition: Home, Self Care
[2024-04-19] MEDS: 0.9% Normal Saline (1000mL) 1,000 ML 999 ML IV (21:05)
[2024-04-19] MEDS: HYDROcodone Bitartrate/Apap 5/325 Tablet PO (21:05)
[2024-04-19 21:16] LABS: Absolute Lymphocyte Count 1.09 X10^3/uL (0.83-4.51); Absolute Neutrophil Count 4.9 X10^3/uL (2.0-7.7); Basophil# 0.04 X10^3/uL; Basophil% 0.6 % (0-1); Eosinophil# 0.13 X10^3/uL; Eosinophils% 1.9 % (0-5); Hematocrit 30.7 % (37-47); Hemoglobin 9.8 g/dL (12.0-15.0); Lymphocyte # 1.09 X10^3/ul (0.83-4.51); Lymphocyte % 16.1 % (19-41); Mean Corp Hgb Conc 31.9 g/dL (32-36); Mean Corpuscular Volume 93.9 fL (81-99); Mean Platelet Vol. 10.5 fl (6.2-12.0); Monocyte# 0.61 X10^3/uL; NRBC Flagged by Analyzer 0 % (0-5); Neutrophil % 72.3 % (47-70); Platelet Count 268 K/mm3 (150-450); RBC Distribution Width CV 14.9 % (11.6-14.6); RBC Distribution Width SD 51.1 fl (35.1-43.9); Red Blood Count 3.27 M/mm3 (4.2-5.4); White Blood Count 6.8 K/mm3 (4.4-11.0)
[2024-04-19 21:40] LABS: Anion Gap 8 (5-15); BUN 31 mg/dL (7-18); BUN/Creat Ratio 5.7 RATIO (10-20); Calcium,Total 7.8 mg/dL (8.5-10.1); Chloride 100 mmol/L (98-107); Creatinine, Serum 5.41 mg/dL (0.55-1.02); EST Glomerular Filtration Rate 9 mL/min (>60); Est Glom Filt Rate - Afr Amer 10 mL/min (>60); Estimated Creatinine Clearance 11.57 ml/min; Glucose 199 mg/dL (74-106); Potassium 3.5 mmol/L (3.5-5.1); Sodium Level 139 mmol/L (136-145)
[2024-04-19 22:21] VITALS: BP 106/79; PULSE 85; RESP 20; TEMP 37; O2SAT 96
[2024-04-19] MEDS: Clindamycin HCl 150 MG Capsule 450 MG PO (22:22)
== END 2024-04-19 22:57 | disposition home or self-care (01) ==
PROVIDERS: Physician Assistant; Emergency Provider Emergency Medicine; PCP Family Medicine; Visit Provider Emergency Medicine
DX: M54.50 Low back pain, unspecified (principal); N18.6 End stage renal disease; I12.0 Hypertensive chronic kidney disease with stage 5 chronic kidney disease or end stage renal disease; E11.621 Type 2 diabetes mellitus with foot ulcer; L97.419 Non-pressure chronic ulcer of right heel and midfoot with unspecified severity; L97.429 Non-pressure chronic ulcer of left heel and midfoot with unspecified severity; E11.22 Type 2 diabetes mellitus with diabetic chronic kidney disease; E11.42 Type 2 diabetes mellitus with diabetic polyneuropathy; Z79.4 Long term (current) use of insulin; G89.29 Other chronic pain; I25.5 Ischemic cardiomyopathy; I25.10 Atherosclerotic heart disease of native coronary artery without angina pectoris; E78.5 Hyperlipidemia, unspecified; Z99.2 Dependence on renal dialysis; Z79.82 Long term (current) use of aspirin; Z79.02 Long term (current) use of antithrombotics/antiplatelets; Z79.890 Hormone replacement therapy; Z79.899 Other long term (current) drug therapy
CPT/HCPCS: 80048; 83605; 85025; 96360; 99285; J7030; A4216

== ENCOUNTER 2024-04-25 18:13 | Emergency (ER) | payer MEDICARE, MEDICAID, SELFPAY ==
[2018-09-21 13:23] VITALS: BMI 29.3
[2024-04-25 18:15] VITALS: BP 124/72; PULSE 87; RESP 18; TEMP 36.4; O2SAT 100
[2024-04-25 18:19] VITALS: BP 124/76; PULSE 81; RESP 16; TEMP 36.4; O2SAT 98
--- NOTE | 2024-04-25 19:02 | EDS_ITS ---
HPI History of Present Illness Chief Complaint: Wound Check [facility] Medical History ESRD on dialysis Carotid artery stenosis MSSA bacteremia Chronic anemia ESRD on hemodialysis Osteomyelitis End stage renal disease Anemia in chronic illness Type 2 diabetes mellitus Foot osteomyelitis, left Chronic renal disease, stage 4, severely decreased glomerular filtration rate (GFR) between 15-29 mL/min/1.73 square meter Acute on chronic anemia Chronic ulcer of right foot with necrosis of bone Chronic kidney disease, stage 4 (severe) Diabetes mellitus with diabetic polyneuropathy CRF (chronic renal failure) Diabetic foot ulcers Cellulitis of both lower extremities Chronic kidney disease, stage 3b Osteomyelitis of metatarsal Charcot's joint, right ankle and foot Charcot's joint, left ankle and foot Cellulitis Acute lumbar radiculopathy Essential hypertension Adult failure to thrive Type 2 diabetes mellitus with diabetic polyneuropathy Elevated troponin COVID-19 (08/28/21) Chronic ulcer of right leg with fat layer exposed Ulcer of left foot with fat layer exposed Chronic ulcer of right foot with fat layer exposed Hyperparathyroidism, secondary renal Iron deficiency anemia Anemia due to chronic illness Stage 4 chronic kidney disease Bilateral edema of lower extremity Chronic foot pain Chronic ulcer of right foot with necrosis of muscle Non-pressure chronic 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 layer exposed Debility Charcot's joint of right foot Diabetes Non-smoker Myocardial infarct Hypertension TIA (transient ischemic attack) Amputation foot, bilat Non-pressure chronic ulcer of other part of left foot with fat layer exposed Type 2 diabetes mellitus with diabetic polyneuropathy 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 Ulcer of left foot with necrosis of muscle Chronic renal insufficiency Ulcer of left foot with muscle involvement without evidence of necrosis Anxiety and depression Diabetic infection of left foot Delayed wound healing Non-compliance Osteomyelitis of left foot Essential (primary) hypertension Diabetic polyneuropathy Ischemic cardiomyopathy Normocytic anemia Obesity (BMI 30.0-34.9) Type 2 diabetes mellitus with diabetic polyneuropathy Acquired varus deformity of left foot Acquired varus deformity of right foot Chronic ulcer of left foot with fat layer exposed Ulcer of right lower extremity with fat layer exposed Atherosclerosis of marshall coronary artery of marshall heart without angina pectoris Hemoglobin A1c greater than 9.0% Diabetic ulcer of right ankle NSTEMI (non-ST elevated myocardial infarction) (09/20/18) GERD (gastroesophageal reflux disease) HLD (hyperlipidemia) Back pain, chronic Diabetic foot ulcer associated with type 2 diabetes mellitus RLS (restless legs syndrome) Home Medications ?Medication ?Instructions ?Recorded ?Last Taken ?Type paroxetine HCl 20 mg tablet 20 mg PO DAILY DEPRESSION 07/07/21 04/07/22 History bupropion HCl 150 mg 24 hr tablet, 150 mg PO DAILY mood 02/04/22 04/07/22 History extended release sennosides 8.6 mg-docusate sodium 2 tab PO BID PRN PRN Constipation 04/24/22 Unknown Rx 50 mg tablet (Stool #0 tabs Softener-Stimulant Laxative) ascorbic acid (vitamin C) 500 mg 500 mg PO BID supplement 05/05/22 Unknown History tablet (Vitamin C) clopidogrel 75 mg tablet 75 mg PO DAILY prevent stroke 07/19/22 Unknown History ferrous sulfate 325 mg (65 mg 325 mg PO .three times a week 07/19/22 Unknown History iron) tablet anemia pantoprazole 40 mg tablet,delayed 40 mg PO BIDCM GERD 07/19/22 Unknown History release insulin glargine-yfgn 100 unit/mL 5 unit (0.05 mL) subcut QHS blood 07/21/22 Unknown Rx (3 mL) subcutaneous pen sugar #15 mL insulin lispro 100 unit/mL See Protocol subcut TIDAC #0 mL 07/21/22 Unknown Rx subcutaneous pen (Humalog KwikPen (U-100) Insulin) cyclobenzaprine 5 mg tablet 5 mg PO TID PRN muscle spasm #21 11/26/23 Unknown Rx tabs gabapentin 100 mg capsule 100 mg PO .COMPLEX PRN pain 11/26/23 Unknown History Mircera See Rx Instructions .Route 12/16/23 Unknown History .COMPLEX dialysis Venofer iron 12/16/23 Unknown History acetaminophen 325 mg capsule 325 mg PO Q4H PRN fever or pain 12/16/23 Unknown History amlodipine 5 mg tablet 5 mg PO DAILY bp 12/16/23 Unknown History antacid extra assorted fruit 750 mg PO .every 4 hours PRN tums 12/16/23 Unknown History tablets calcitriol 0.5 mcg capsule 0.5 mcg PO .COMPLEX on dialysis 12/16/23 Unknown History calcium acetate(phosphat bind) 667 676 mg PO TID is on dialysis 12/16/23 Unknown History mg capsule cloNIDine See Rx Instructions .Route 12/16/23 Unknown History .COMPLEX dialysis diphenhydramine 25 mg IV itching 12/16/23 Unknown History folic acid 800 mcg tablet 0.8 mg PO DAILY supplement 12/16/23 Unknown History hydralazine 25 mg tablet 25 mg PO TID bp 12/16/23 Unknown History insulin aspart U-100 6 unit subcut TID blood glucose 12/16/23 Unknown History insulin aspart U-100 100 unit/mL subcut 12/16/23 Unknown History (3 mL) subcutaneous pen insulin glargine 100 unit/mL (3 20 unit subcut DAILY blood glucose 12/16/23 Unknown History mL) subcutaneous pen (Lantus Solostar U-100 Insulin) isosorbide dinitrate 10 mg tablet 20 mg PO TID bp and heart 12/16/23 Unknown History levothyroxine 25 mcg tablet 25 mcg PO DAILY thyroid 12/16/23 Unknown History lidocaine-silicone, adhesive topical pain 12/16/23 Unknown History loperamide 2 mg capsule 2 mg PO Q4H PRN loose stool 12/16/23 Unknown History (Anti-Diarrheal (loperamide)) melatonin 5 mg capsule 5 mg PO .bedtime sleep 12/16/23 Unknown History nitroglycerin 0.4 mg sublingual 0.4 mg sublingual Q5M chest pain 12/16/23 Unknown History tablet (Nitrostat) olanzapine 5 mg tablet 5 mg PO QHS sleep 12/16/23 Unknown History ondansetron 4 mg disintegrating 4 mg PO DAILY PRN nausea and 12/16/23 Unknown History tablet vomiting pramipexole dihydrochloride 1.5 mg PO BID unknown 12/16/23 Unknown History promethazine 25 mg tablet 25 mg PO Q4H PRN nausea and 12/16/23 Unknown History vomiting aspirin 81 mg capsule 81 mg PO DAILY #30 caps 12/26/23 Unknown Rx cefepime 1 gram/50 mL in dextrose 1 g IV .as directed 12/26/23 Unknown Rx 5 % intravenous piggyback atorvastatin 40 mg tablet 40 mg PO DAILY 03/18/24 Unknown History buprenorphine 5 mcg/hour weekly 1 patch topical QWEEK 03/18/24 Unknown History transdermal patch carvedilol 25 mg tablet 25 mg PO BID 03/18/24 Unknown History clindamycin HCl 150 mg capsule 450 mg (3 x 150 mg) PO TID 7 days 04/19/24 Unknown Rx #63 CAPSULES Allergy/AdvReac Type Severity Reaction Status Date / Time Penicillins Allergy swelling Verified 04/25/24 18:14 in throat vancomycin Allergy Itching Verified 04/25/24 18:14 metronidazole AdvReac Nausea Verified 04/25/24 18:14 oxycodone (From OxyContin) AdvReac Shortness Verified 04/25/24 18:14 of breath Family History Mother Diabetes CVA (cerebral vascular accident) Brother CAD (coronary artery disease) CABG X 3 Cancer testicular Diabetes Brother CAD (coronary artery disease) CABG X3 Diabetes Brother CAD (coronary artery disease) Stents Diabetes Sister CAD (coronary artery disease) CABG x 3 CVA (cerebral vascular accident) Diabetes Surgical History History of History of foot surgery History of bilateral carpal tunnel release History of rotator cuff surgery History of coronary artery stent placement (12/31/20) Social History household members: none number of children: 2 current occupational status: disabled Smoking Status: Never smoker alcohol intake: never substance use type: does not use caffeine: Yes Type: carbonated beverages Number of servings: 2 EXAM Physical Exam Const Vital Signs: 04/25/24 18:15 04/25/24 18:19 04/25/24 20:00 Temperature 97.6 F L 97.6 F L 98.3 F Temperature Source Temporal Tympanic Temporal Pulse Rate 87 81 90 Respiratory Rate 18 16 22 H Blood Pressure 124/72 H 124/76 H 150/76 H Blood Pressure Mean 89 92 100 Pulse Ox 100 98 98 Oxygen Delivery Method Room Air Room Air Room Air MDM MDM MDM Narrative Medical decision making narrative: HISTORY OF PRESENT ILLNESS: 58-year-old female presents with concern for bilateral wounds. Notes she was seen a week ago but has not been able to fill antibiotics secondary to not having transportation. Notes she has dialysis Tuesday and Tuesday but did not go today secondary to her foot wounds. Denies any chills, fever. Notes nausea but no vomiting. REVIEW OF SYSTEMS: Pertinent positives: Foot wound, nausea Pertinent negatives: Fever, vomiting, chest pain, shortness of breath PHYSICAL EXAM: Nursing triage notes reviewed, Vital signs reviewed Constitutional: please see mdm HENT: MMM Eyes: Pupils equal round and reactive to light, Extraocular muscles intact Neck: No stridor, no JVD, full neck ROM Lungs: Clear to auscultation, No wheezing or rales. No increased work of breathing, no conversational dyspnea, no accessory muscle use, no nasal flaring. No respiratory distress noted Heart: Regular rate and rhythm, No murmurs, No rubs and No gallops, 2+ distal pulses (radial, femoral, posterior tibial) in all extremities Abdomen: Soft, there is no tenderness, rigidity, rebound or guarding, no obvious peritoneal signs, no palpable pulsatile abdominal masses, no auscultated abdominal bruit : No CVAT Extremities: No edema Neuro: Intact sensation L1-S1 dermatomal distributions. Intact 5/5 strength in hip flexion (T12-L3). Knee extension (L2-L4). Ankle dorsiflexion (L4-L5). Ankle plantar flexion (S1). Great toe extension (L5). 2+ patellar and Achilles DTRs. Skin: Noted well-appearing ulceration of bilateral plantar surfaces. No fluctuance, no induration, no crepitus, no purulent drainage, no warmth or foul odor. MEDICAL DECISION MAKING: Chief Complaint: Wound evaluation External records reviewed: Reviewed last ED visit from 04/19/2024. Patient had reassuring lab evaluation at that time was given clindamycin. Reviewed prior imaging. Patient had x-rays of bilateral feet on 03/17/2024 which were both negative for signs of osteomyelitis. Factors affecting care: HTN, HLD, DM2, ESRD on HD, chronic back pain Social determinants of health: none History obtained from others: none Consults: none [facility] Narrative: The patient was initially hemodynamically stable, afebrile and nontoxic- appearing. Exam without obvious signs of infection. Noted chronic appearing bilateral plantar diabetic foot ulcers. I considered the following differential diagnosis: Cellulitis, abscess, osteomyelitis. Clinical exam is not consistent cellulitis or abscess. Obtained x-rays to rule out osteomyelitis. Obtain labs to assess for signs of systemic inflammation or signs of sepsis. Given the patient has type 2 diabetes and is immunocompromise end-stage renal disease I did give a prophylactic dose of IV clindamycin here given she has not been able to fill her outpatient clindamycin. ALL IMAGES (IF OBTAINED) HAVE BEEN PERSONALLY REVIEWED AND INTERPRETED BY MYSELF. CBC without leukocytosis to suggest systemic inflammation, noted anemia at baseline, no thrombocytopenia noted BMP with ESRD, no significant Hye normalities, no evidence of elevated anion gap or signs of metabolic acidosis Lactate is wnl indicating no end-organ hypoperfusion and/or hypoxia. X-rays of bilateral feet (which was read reviewed personally by myself) show no evidence of bony erosion or osteomyelitis, radiologist agrees my interpretation The synthesis of the patient's history, physical exam, labs images suggest no acute life-threatening infectious etiology specifically no signs of significant systemic inflammation, sepsis or osteomyelitis. Patient was given a dose of IV clindamycin here. Medicine bed was arranged. If this is ineffective patient will be encouraged to try to fill her any prescribed clindamycin prescription. Wound care and podiatry follow-up was recommended and arranged. The patient and/or family, caregivers express understanding. The patient and/or family, caregivers agrees with the plan. Shared decision making: I will have a discussion with the patient and or visitors regarding risk /benefits of further testing or admission. They will be made aware of of the risk/benefits inherent in this decision they will be given the opportunity to voice understanding. Total critical care time today provided was at least 0 minutes. This excludes separately billable procedures. Critical care time (if documented) is secondary to the patient having high probability of clinically significant/life threatening deterioration in the patient's condition which required my urgent intervention. Impression: 1. Chronic foot ulcers 2. History of diabetes 3. History of end-stage renal disease Dispo: Discharge home This note was generated with [employer] dictation software. It may contain incorrect words, spelling, and punctuation that were not noted in review of the chart prior to signing. Lab Data Labs: Laboratory Results - last 24 hr 04/25/24 19:47 WBC 7.4 RBC 3.40 L Hgb 9.9 L Hct 31.8 L MCV 93.5 MCH 29.1 MCHC 31.1 L RDW Std Deviation 51.3 H RDW Coeff of Fior 15.0 H Plt Count 297 MPV 10.0 Sodium 136 Potassium 3.7 Chloride 97 L Carbon Dioxide 28.0 Anion Gap 11 BUN 52 H Creatinine 6.67 H Est GFR (MDRD) Af Amer 8 L Est GFR (MDRD) Non-Af 7 L BUN/Creatinine Ratio 7.8 L Glucose 146 H Lactic Acid 0.7 Calcium 7.4 L Radiography Diagnostic Testing: Clinical Impression(s) from Imaging Studies Foot X-Ray 04/25/24 19:28 IMPRESSION: 1. Gas in the soft tissues under the base of the fourth metatarsal. There are no obvious acute osseous abnormalities. If indicated further evaluation with MRI may be beneficial. 2. Amputation of the fifth metatarsal and phalanx. Electronically Signed: Manish Beck MD at 20:32 EDT , Foot X-Ray 04/25/24 20:00 IMPRESSION: 1. Gas in the soft tissues over the base of the fourth metatarsal. There are no acute osseous abnormalities. If indicated further evaluation with MRI may be beneficial. 2. Amputation of the distal fifth metatarsal and fifth phalanx. Electronically Signed: Manish Beck MD at 20:36 EDT , Discharge Plan Triage Chief Complaint: Wound Check ED Provider: Maurice Kay Dx/Rx/DC Orders Prescriptions: No Action paroxetine HCl 20 mg tablet 20 mg PO DAILY Patient Comments: TAKE 1 TABLET BY MOUTH EVERY DAY IN THE EVENING bupropion HCl 150 mg tablet extended release 24 hr 150 mg PO DAILY Patient Comments: TAKE 1 TABLET BY MOUTH EVERY DAY sennosides-docusate sodium [Stool Softener-Stimulant Laxat] 8.6-50 mg Tablet 2 tab PO BID PRN PRN (Reason: Constipation) Qty: 0 0RF ascorbic acid (vitamin C) [Vitamin C] 500 mg Tablet 500 mg PO BID clopidogrel 75 mg tablet 75 mg PO DAILY pantoprazole 40 mg tablet,delayed release (DR/EC) 40 mg PO BIDCM ferrous sulfate 325 mg (65 mg iron) tablet 325 mg PO .three times a week Patient Comments: takes three times a week, on Tuesday, and Tuesday insulin lispro [Humalog KwikPen Insulin] 100 unit/mL Insulin Pen See Protocol subcut TIDAC Qty: 0 0RF Protocol: 1. Sliding Scale Insulin Low Dosing Condition: 150-224 mg/dl = 1 unit Condition: 225-299 mg/dl = 2 units Condition: 300-374 mg/dl = 3 units Condition: 375-499 mg/dl = 4 units Condition: Greater than 449 call physician Protocol Text: - Use for Total Daily Dose of Insulin 15-27 units - Thin, elderly, renal patients LOW DOSING ALGORITHM insulin glargine-yfgn 100 unit/mL (3 mL) insulin pen 5 unit subcut QHS Qty: 15 0RF Rx Instructions: Hold if glucose less than 130 mg/dl gabapentin 100 mg capsule 100 mg PO .COMPLEX PRN (Reason: pain) Rx Instructions: 100 mg orally 3 times a week Tuesday, Tuesday and Tuesday cyclobenzaprine 5 mg tablet 5 mg PO TID PRN (Reason: muscle spasm) Qty: 21 0RF atorvastatin 40 mg tablet 40 mg PO DAILY carvedilol 25 mg tablet 25 mg PO BID buprenorphine 5 mcg/hour patch weekly 1 patch topical QWEEK calcium acetate(phosphat bind) 667 mg capsule 676 mg PO TID Patient Comments: TAKE 1 CAPSULE BY MOUTH THREE TIMES A DAY WITH FOOD folic acid 800 mcg tablet 0.8 mg PO DAILY Patient Comments: TAKE 1 TABLET BY MOUTH EVERY DAY levothyroxine 25 mcg tablet 25 mcg PO DAILY Patient Comments: TAKE 1 TABLET BY MOUTH EVERY DAY BEFORE BREAKFAST insulin aspart U-100 100 unit/mL (3 mL) insulin pen SUBCUT Patient Comments: PLEASE SEE ATTACHED FOR DETAILED DIRECTIONS olanzapine 5 mg tablet 5 mg PO QHS Patient Comments: TAKE 1 TABLET BY MOUTH EVERYDAY AT BEDTIME amlodipine 5 mg tablet 5 mg PO DAILY hydralazine 25 mg tablet 25 mg PO TID insulin glargine [Lantus Solostar U-100 Insulin] 100 unit/mL (3 mL) insulin pen 20 unit subcut DAILY lidocaine-silicone, adhesive topical Patient Comments: 1 patch daily melatonin 5 mg capsule 5 mg PO .bedtime insulin aspart U-100 [Novolog FlexPen U-100 Insulin] 6 unit subcut TID Patient Comments: give with meals ondansetron 4 mg tablet,disintegrating 4 mg PO DAILY PRN (Reason: nausea and vomiting) pramipexole dihydrochloride 1.5 mg PO BID isosorbide dinitrate 10 mg Tablet 20 mg PO TID acetaminophen 325 mg capsule 325 mg PO Q4H PRN (Reason: fever or pain) antacid extra assorted fruit tablets 750 mg PO .every 4 hours PRN (Reason: tums) calcitriol 0.5 mcg capsule 0.5 mcg PO .COMPLEX Rx Instructions: 0.5 mcg orally three times a week; cloNIDine See Rx Instructions .ROUTE .COMPLEX Rx Instructions: 0.1mg every 4 hours as needed diphenhydramine 25 mg IV Rx Instructions: every 30 minutes as needed. loperamide [Anti-Diarrheal (loperamide)] 2 mg capsule 2 mg PO Q4H PRN (Reason: loose stool) Rx Instructions: administer after each loose stool until symptoms controlled; do not exceed 8 mg per 24 hrs Mircera See Rx Instructions .ROUTE .COMPLEX Rx Instructions: intravenous every 2 weeks nitroglycerin [Nitrostat] 0.4 mg tablet, sublingual 0.4 mg sublingual Q5M Rx Instructions: do not exceed 3 doses per episode promethazine 25 mg tablet 25 mg PO Q4H PRN (Reason: nausea and vomiting) Venofer Rx Instructions: 50 mg one time a week. cefepime in dextrose 5 % 1 gram/50 mL piggyback 1 g IV .as directed Rx Instructions: Dose with dialysis sessions. 1gm on Tue, 2gm on , 1gm on , 2gm on Tuesday. Stop date 01/30/24. Dx: MSSA endocarditis. Weekly bmp and cbc. Fax to [phone]. aspirin 81 mg capsule 81 mg PO DAILY Qty: 30 1RF clindamycin HCl 150 mg capsule 450 mg PO TID 7 Days Qty: 63 0RF Primary Care Provider: Raúl Eric Referrals: Raúl Eric MD [Primary Care Provider] - Print Language: Bengali
--- NOTE | 2024-04-25 19:27 | EKG12_ITS ---
Test Reason : LEG WOUNDS Blood Pressure : / mmHG Vent. Rate : 086 BPM Atrial Rate : 086 BPM P-R Int : 162 ms QRS Dur : 090 ms QT Int : 406 ms P-R-T Axes : 053 -02 -02 degrees QTc Int : 485 ms Normal sinus rhythm Prolonged QT Abnormal ECG Confirmed by OTTO DELVALLE, DOMINIQUE ([id number]), water control supervisor DAVID CARCAMO ([id number]) on 04/26/2024 1:02:45 PM Referred By: Confirmed By:DOMINIQUE MENJIVAR MD
--- NOTE | 2024-04-25 19:28 | RAD_ITS ---
EXAM: XR RIGHT FOOT, 2 VIEWS CLINICAL INDICATION: DIABETIC FOOT ULCERS TECHNIQUE: Frontal and lateral views of the right foot. COMPARISON: No relevant prior studies available. FINDINGS: BONES/JOINTS: There is been amputation of the fifth metatarsal phalanx. There are degenerative changes at the tarsometatarsal joints of the lateral foot. No acute fracture. No subluxation. Normal alignment. No sclerotic or destructive changes observed. SOFT TISSUES: There is gas in the soft tissues under the base of the fourth metatarsal. No radiopaque foreign body. RAD/Foot 2 Views IMPRESSION: 1. Gas in the soft tissues under the base of the fourth metatarsal. There are no obvious acute osseous abnormalities. If indicated further evaluation with MRI may be beneficial. 2. Amputation of the fifth metatarsal and phalanx. Electronically Signed: Manish Beck MD at 20:32 EDT ,
[2024-04-25 19:54] LABS: Hematocrit 31.8 % (37-47); Hemoglobin 9.9 g/dL (12.0-15.0); Mean Corp Hgb Conc 31.1 g/dL (32-36); Mean Corpuscular Hgb 29.1 pg (27.0-32.0); Mean Corpuscular Volume 93.5 fL (81-99); Platelet Count 297 K/mm3 (150-450); RBC Distribution Width SD 51.3 fl (35.1-43.9); White Blood Count 7.4 K/mm3 (4.4-11.0)
[2024-04-25 20:00] VITALS: BP 150/76; PULSE 90; RESP 22; TEMP 36.8; O2SAT 98
--- NOTE | 2024-04-25 20:00 | RAD_ITS ---
EXAM: XR LEFT FOOT, 2 VIEWS CLINICAL INDICATION: diabetic foot ulcers TECHNIQUE: Frontal and lateral views of the left foot. COMPARISON: 03/17/2024 FINDINGS: BONES/JOINTS: There is been amputation of the distal fifth metatarsal and fifth phalanx. No acute fracture. No subluxation. Normal alignment. Preservation of the joint space. No sclerotic or destructive changes observed. SOFT TISSUES: There is gas in the soft tissues of the base of the fourth metatarsal. No radiopaque foreign body. RAD/Foot 2 Views IMPRESSION: 1. Gas in the soft tissues over the base of the fourth metatarsal. There are no acute osseous abnormalities. If indicated further evaluation with MRI may be beneficial. 2. Amputation of the distal fifth metatarsal and fifth phalanx. Electronically Signed: Manish Beck MD at 20:36 EDT ,
[2024-04-25] MEDS: Ondansetron 4 MG/2 ML Vial IV (20:04)
[2024-04-25] MEDS: Clindamycin 600 MG/50 ML BAG 100 MG IV (20:16)
[2024-04-25 20:31] LABS: Anion Gap 11 (5-15); BUN 52 mg/dL (7-18); BUN/Creat Ratio 7.8 RATIO (10-20); Calcium,Total 7.4 mg/dL (8.5-10.1); Chloride 97 mmol/L (98-107); Creatinine, Serum 6.67 mg/dL (0.55-1.02); EST Glomerular Filtration Rate 7 mL/min (>60); Est Glom Filt Rate - Afr Amer 8 mL/min (>60); Glucose 146 mg/dL (74-106); Lactic Acid 0.7 mmol/L (0.4-1.9); Potassium 3.7 mmol/L (3.5-5.1); Sodium Level 136 mmol/L (136-145)
[2024-04-25 22:00] VITALS: BP 106/93; PULSE 84; RESP 18; TEMP 36.8; O2SAT 96
[2024-04-25] MEDS: Acetaminophen 325 MG Tablet 650 MG PO (22:10)
== END 2024-04-25 22:26 | disposition home or self-care (01) ==
PROVIDERS: Emergency Provider Emergency Medicine; PCP Family Medicine; Visit Provider Emergency Medicine
DX: E11.621 Type 2 diabetes mellitus with foot ulcer (principal); I12.0 Hypertensive chronic kidney disease with stage 5 chronic kidney disease or end stage renal disease; N18.6 End stage renal disease; L97.419 Non-pressure chronic ulcer of right heel and midfoot with unspecified severity; L97.429 Non-pressure chronic ulcer of left heel and midfoot with unspecified severity; E11.22 Type 2 diabetes mellitus with diabetic chronic kidney disease; E11.42 Type 2 diabetes mellitus with diabetic polyneuropathy; Z79.4 Long term (current) use of insulin; M54.9 Dorsalgia, unspecified; G89.29 Other chronic pain; I25.10 Atherosclerotic heart disease of native coronary artery without angina pectoris; I25.5 Ischemic cardiomyopathy; E78.5 Hyperlipidemia, unspecified; Z79.82 Long term (current) use of aspirin; Z79.02 Long term (current) use of antithrombotics/antiplatelets; Z79.890 Hormone replacement therapy; Z79.899 Other long term (current) drug therapy; Z95.5 Presence of coronary angioplasty implant and graft
CPT/HCPCS: 73620; 80048; 83605; 85027; 93005; 96365; 96366; 96375; 99282; J7050; A4216; J2405

== ENCOUNTER 2024-05-02 22:33 | Inpatient (IN) | payer MEDICARE, MEDICAID, SELFPAY ==
[2018-09-21 13:23] VITALS: BMI 29.3
[2024-05-02 22:37] VITALS: BP 176/76; PULSE 102; RESP 16; TEMP 36.9; O2SAT 98; BMI 27.6
--- NOTE | 2024-05-02 22:52 | EDS_ITS ---
HPI HPI - Psych History of Present Illness Chief Complaint: Suicidal Informant: patient Narrative Narrative: Patient presents via EMS secondary to wanting to stop dialysis and knowing if she does that she will . She reportedly told EMS that she was ready to meet [place]. Patient tells me that she called EMS because she was in the garage on the lawnmower and afraid to get off because there was broken glass everywhere. She states that this afternoon, at least 6 hours ago, she had gone to the garage, got on the lawnmower with the plan to drive down the road to her sister's house to get some water. Patient does have end-stage renal failure and is on dialysis Tuesday, Tuesday, and Tuesday. She states she had part of her dialysis run today. 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 [facility] Medical History (Updated 05/03/24 @ 06:[address] Pili Jaeger MD) Drowsiness Mental status, decreased Carotid artery stenosis MSSA bacteremia ESRD on hemodialysis Osteomyelitis Anemia in chronic illness Type 2 diabetes mellitus Foot osteomyelitis, left Chronic renal disease, stage 4, severely decreased glomerular filtration rate (GFR) between 15-29 mL/min/1.73 square meter Acute on chronic anemia Chronic ulcer of right foot with necrosis of bone Chronic kidney disease, stage 4 (severe) Diabetes mellitus with diabetic polyneuropathy Diabetic foot ulcers Chronic kidney disease, stage 3b Charcot's joint, right ankle and foot Charcot's joint, left ankle and foot Cellulitis Acute lumbar radiculopathy Essential hypertension Adult failure to thrive COVID-19 (08/28/21) Chronic ulcer of right leg with fat layer exposed Ulcer of left foot with fat layer exposed Chronic ulcer of right foot with fat layer exposed Hyperparathyroidism, secondary renal Iron deficiency anemia Bilateral edema of lower extremity Chronic foot pain Non-pressure chronic 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 layer exposed Debility Charcot's joint of right foot Diabetes Non-smoker Myocardial infarct Hypertension TIA (transient ischemic attack) Amputation foot, bilat Non-pressure chronic ulcer of other part of left foot with fat layer exposed 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 Ulcer of left foot with necrosis of muscle Ulcer of left foot with muscle involvement without evidence of necrosis Anxiety and depression Diabetic infection of left foot Delayed wound healing Non-compliance Diabetic polyneuropathy Ischemic cardiomyopathy Obesity (BMI 30.0-34.9) Acquired varus deformity of left foot Acquired varus deformity of right foot Atherosclerosis of [place] coronary artery of [place] heart without angina pectoris Hemoglobin A1c greater than 9.0% NSTEMI (non-ST elevated myocardial infarction) (09/20/18) GERD (gastroesophageal reflux disease) HLD (hyperlipidemia) Back pain, chronic RLS (restless legs syndrome) Home Medications ?Medication ?Instructions ?Recorded ?Last Taken ?Type paroxetine HCl 20 mg tablet 20 mg PO DAILY DEPRESSION 07/07/21 04/07/22 History bupropion HCl 150 mg 24 hr tablet, 150 mg PO DAILY mood 02/04/22 04/07/22 History extended release sennosides 8.6 mg-docusate sodium 2 tab PO BID PRN PRN Constipation 04/24/22 Unknown Rx 50 mg tablet (Stool #0 tabs Softener-Stimulant Laxative) ascorbic acid (vitamin C) 500 mg 500 mg PO BID supplement 05/05/22 Unknown History tablet (Vitamin C) clopidogrel 75 mg tablet 75 mg PO DAILY prevent stroke 07/19/22 Unknown History ferrous sulfate 325 mg (65 mg 325 mg PO .three times a week 07/19/22 Unknown History iron) tablet anemia pantoprazole 40 mg tablet,delayed 40 mg PO BIDCM GERD 07/19/22 Unknown History release insulin glargine-yfgn 100 unit/mL 5 unit (0.05 mL) subcut QHS blood 07/21/22 Unknown Rx (3 mL) subcutaneous pen sugar #15 mL insulin lispro 100 unit/mL See Protocol subcut TIDAC #0 mL 07/21/22 Unknown Rx subcutaneous pen (Humalog KwikPen (U-100) Insulin) cyclobenzaprine 5 mg tablet 5 mg PO TID PRN muscle spasm #21 11/26/23 Unknown Rx tabs gabapentin 100 mg capsule 100 mg PO .COMPLEX PRN pain 11/26/23 Unknown History Mircera See Rx Instructions .Route 12/16/23 Unknown History .COMPLEX dialysis Venofer iron 12/16/23 Unknown History acetaminophen 325 mg capsule 325 mg PO Q4H PRN fever or pain 12/16/23 Unknown History amlodipine 5 mg tablet 5 mg PO DAILY bp 12/16/23 Unknown History antacid extra assorted fruit 750 mg PO .every 4 hours PRN tums 12/16/23 Unknown History tablets calcitriol 0.5 mcg capsule 0.5 mcg PO .COMPLEX on dialysis 12/16/23 Unknown History calcium acetate(phosphat bind) 667 676 mg PO TID is on dialysis 12/16/23 Unknown History mg capsule cloNIDine See Rx Instructions .Route 12/16/23 Unknown History .COMPLEX dialysis diphenhydramine 25 mg IV itching 12/16/23 Unknown History folic acid 800 mcg tablet 0.8 mg PO DAILY supplement 12/16/23 Unknown History hydralazine 25 mg tablet 25 mg PO TID bp 12/16/23 Unknown History insulin aspart U-100 6 unit subcut TID blood glucose 12/16/23 Unknown History insulin aspart U-100 100 unit/mL subcut 12/16/23 Unknown History (3 mL) subcutaneous pen insulin glargine 100 unit/mL (3 20 unit subcut DAILY blood glucose 12/16/23 Unknown History mL) subcutaneous pen (Lantus Solostar U-100 Insulin) isosorbide dinitrate 10 mg tablet 20 mg PO TID bp and heart 12/16/23 Unknown History levothyroxine 25 mcg tablet 25 mcg PO DAILY thyroid 12/16/23 Unknown History lidocaine-silicone, adhesive topical pain 12/16/23 Unknown History loperamide 2 mg capsule 2 mg PO Q4H PRN loose stool 12/16/23 Unknown History (Anti-Diarrheal (loperamide)) melatonin 5 mg capsule 5 mg PO .bedtime sleep 12/16/23 Unknown History nitroglycerin 0.4 mg sublingual 0.4 mg sublingual Q5M chest pain 12/16/23 Unknown History tablet (Nitrostat) olanzapine 5 mg tablet 5 mg PO QHS sleep 12/16/23 Unknown History ondansetron 4 mg disintegrating 4 mg PO DAILY PRN nausea and 12/16/23 Unknown History tablet vomiting pramipexole dihydrochloride 1.5 mg PO BID unknown 12/16/23 Unknown History promethazine 25 mg tablet 25 mg PO Q4H PRN nausea and 12/16/23 Unknown History vomiting aspirin 81 mg capsule 81 mg PO DAILY #30 caps 12/26/23 Unknown Rx cefepime 1 gram/50 mL in dextrose 1 g IV .as directed 12/26/23 Unknown Rx 5 % intravenous piggyback atorvastatin 40 mg tablet 40 mg PO DAILY 03/18/24 Unknown History buprenorphine 5 mcg/hour weekly 1 patch topical QWEEK 03/18/24 Unknown History transdermal patch carvedilol 25 mg tablet 25 mg PO BID 03/18/24 Unknown History clindamycin HCl 150 mg capsule 450 mg (3 x 150 mg) PO TID 7 days 04/19/24 Unknown Rx #63 CAPSULES clindamycin HCl 150 mg capsule 450 mg (3 x 150 mg) PO TID 10 days 04/25/24 Unknown Rx #90 caps Allergy/AdvReac Type Severity Reaction Status Date / Time Penicillins Allergy swelling Verified 04/25/24 18:14 in throat vancomycin Allergy Itching Verified 04/25/24 18:14 metronidazole AdvReac Nausea Verified 04/25/24 18:14 oxycodone (From OxyContin) AdvReac Shortness Verified 04/25/24 18:14 of breath Family History Mother Diabetes CVA (cerebral vascular accident) Brother CAD (coronary artery disease) CABG X 3 Cancer testicular Diabetes Brother CAD (coronary artery disease) CABG X3 Diabetes Brother CAD (coronary artery disease) Stents Diabetes Sister CAD (coronary artery disease) CABG x 3 CVA (cerebral vascular accident) Diabetes Surgical History History of History of foot surgery History of bilateral carpal tunnel release History of rotator cuff surgery History of coronary artery stent placement (12/31/20) Social History household members: none number of children: 2 current occupational status: disabled Smoking Status: Never smoker alcohol intake: never substance use type: does not use caffeine: Yes Type: carbonated beverages Number of servings: 2 ROS ROS ED Constitutional Constitutional ED: Denies chills or fever(s) Eyes Eyes: Denies discharge from eye(s) ENT ENT ED: Denies discharge from eye(s), rhinorrhea or sore throat Cardiovascular Cardiovascular: Denies chest pain or palpitations Respiratory/Chest Respiratory/Chest: Denies cough or dyspnea Gastrointestinal Gastrointestinal: Denies abdominal pain, nausea or vomiting Musculoskeletal Musculoskeletal: Reports extremity pain; Denies back pain Neurologic Neurologic: Reports weakness; Denies headache(s) Psychiatric Psychiatric: Reports depression Allergic/Immunologic Allergic/Immunologic ED: Denies lip swelling or urticaria EXAM Physical Exam Const Vital Signs: 05/02/24 22:37 05/02/24 23:36 05/03/24 03:37 Temperature 98.5 F Temperature Source Oral Pulse Rate 102 H 109 H 85 Respiratory Rate 16 18 17 Blood Pressure 176/76 H 180/89 H 141/62 H Blood Pressure Mean 109 119 88 Pulse Ox 98 98 98 Oxygen Delivery Method Room Air Room Air Room Air Positive well nourished and well developed General Appearance ED: well developed HEENT Reports moist mucous membranes Eyes EOMs intact bilaterally Resp normal respiratory effort and clear to auscultation bilaterally Cardio Rate: regular rate Rhythm: regular rhythm GI non-tender Palpation: soft Extremity Extremity Narrative: Superficial abrasions noted to the extremities. Foot wraps will be changed out and wounds examined. Neuro oriented x3 Psych mental status grossly normal and cooperative Psych Narrative: Poor insight MDM MDM MDM Narrative Medical decision making narrative: Labwork for psychiatric clearance will be obtained. History & Record Review Discussion w/independent historian: Patient Additional record(s) reviewed:: Prior inpatient record, Prior ED visit and Prior labs Lab Data Attestation: I reviewed the patient's lab results. Labs: Laboratory Results - last 24 hr 05/02/24 05/03/24 05/03/24 23:18 00:18 01:06 WBC 5.4 RBC 3.03 L Hgb 9.0 L Hct 28.6 L MCV 94.4 MCH 29.7 MCHC 31.5 L RDW Std Deviation 50.1 H RDW Coeff of Fior 14.6 Plt Count 284 MPV 9.9 Immature Gran % (Auto) 0.600 Neut % (Auto) 77.8 H Lymph % (Auto) 11.5 L [place] % (Auto) 8.0 Eos % (Auto) 1.7 Baso % (Auto) 0.4 Absolute Neuts (auto) 4.2 Absolute Lymphs (auto) 0.62 L Nucleated RBC % 0 Sodium 135 L Potassium 4.4 Chloride 98 Carbon Dioxide 31.0 Anion Gap 6 BUN 49 H Creatinine 4.47 H Estim Creat Clear Calc 13.94 Est GFR (MDRD) Af Amer 13 L Est GFR (MDRD) Non-Af 11 L BUN/Creatinine Ratio 11.0 Glucose 641 H* Calcium 7.3 L Urine Opiates Screen NEGATIVE Urine Methadone Screen NEGATIVE Ur Barbiturates Screen NEGATIVE Ur Phencyclidine Scrn NEGATIVE Ur Amphetamines Screen NEGATIVE MDMA (Ecstasy) Screen NEGATIVE U Benzodiazepines Scrn NEGATIVE Urine Cocaine Screen NEGATIVE U Cannabinoids Screen NEGATIVE Ur Drug Screen Comment Ethyl Alcohol < 3.0 POC Glucose 359 H 05/03/24 03:27 WBC RBC Hgb Hct MCV MCH MCHC RDW Std Deviation RDW Coeff of Fior Plt Count MPV Immature Gran % (Auto) Neut % (Auto) Lymph % (Auto) [place] % (Auto) Eos % (Auto) Baso % (Auto) Absolute Neuts (auto) Absolute Lymphs (auto) Nucleated RBC % Sodium Potassium Chloride Carbon Dioxide Anion Gap BUN Creatinine Estim Creat Clear Calc Est GFR (MDRD) Af Amer Est GFR (MDRD) Non-Af BUN/Creatinine Ratio Glucose Calcium Urine Opiates Screen Urine Methadone Screen Ur Barbiturates Screen Ur Phencyclidine Scrn Ur Amphetamines Screen MDMA (Ecstasy) Screen U Benzodiazepines Scrn Urine Cocaine Screen U Cannabinoids Screen Ur Drug Screen Comment Ethyl Alcohol POC Glucose 163 H Treatment and Re-Evaluation Narrative: CBC was a white count of 5.4 with a hemoglobin of 9.0. This is consistent with her chronic renal disease and anemia. BUN is 49 and creatinine is 4.47. Glucose is 641. EtOH is negative. Urine tox screen is negative. Patient was given 15 units of subcu insulin. She also ate. Repeat blood sugar was 359. Patient was given a GI cocktail, Protonix, her evening carvedilol, Mirapex, and hydroxyzine. Repeat blood sugar at 3:30 AM was 163. Patient was seen and evaluated by crisis. They do feel patient will require placement. [facility] slip has been filled out. I am told patient will be excepted at [facility] for psychiatric and medical care. Patient will be signed out to oncoming physician while awaiting final acceptance paperwork and bed assignment/transport Discharge Plan Triage Chief Complaint: Suicidal ED Provider: Pili Jaeger Dx/Rx/DC Orders Clinical Impression: Suicidal ideation, Hyperglycemia Prescriptions: No Action paroxetine HCl 20 mg tablet 20 mg PO DAILY Patient Comments: TAKE 1 TABLET BY MOUTH EVERY DAY IN THE EVENING bupropion HCl 150 mg tablet extended release 24 hr 150 mg PO DAILY Patient Comments: TAKE 1 TABLET BY MOUTH EVERY DAY sennosides-docusate sodium [Stool Softener-Stimulant Laxat] 8.6-50 mg Tablet 2 tab PO BID PRN PRN (Reason: Constipation) Qty: 0 0RF ascorbic acid (vitamin C) [Vitamin C] 500 mg Tablet 500 mg PO BID clopidogrel 75 mg tablet 75 mg PO DAILY pantoprazole 40 mg tablet,delayed release (DR/EC) 40 mg PO BIDCM ferrous sulfate 325 mg (65 mg iron) tablet 325 mg PO .three times a week Patient Comments: takes three times a week, on Tuesday, and Tuesday insulin lispro [Humalog KwikPen Insulin] 100 unit/mL Insulin Pen See Protocol subcut TIDAC Qty: 0 0RF Protocol: 1. Sliding Scale Insulin Low Dosing Condition: 150-224 mg/dl = 1 unit Condition: 225-299 mg/dl = 2 units Condition: 300-374 mg/dl = 3 units Condition: 375-499 mg/dl = 4 units Condition: Greater than 449 call physician Protocol Text: - Use for Total Daily Dose of Insulin 15-27 units - Thin, elderly, renal patients LOW DOSING ALGORITHM insulin glargine-yfgn 100 unit/mL (3 mL) insulin pen 5 unit subcut QHS Qty: 15 0RF Rx Instructions: Hold if glucose less than 130 mg/dl gabapentin 100 mg capsule 100 mg PO .COMPLEX PRN (Reason: pain) Rx Instructions: 100 mg orally 3 times a week Tuesday, Tuesday and Tuesday cyclobenzaprine 5 mg tablet 5 mg PO TID PRN (Reason: muscle spasm) Qty: 21 0RF atorvastatin 40 mg tablet 40 mg PO DAILY carvedilol 25 mg tablet 25 mg PO BID buprenorphine 5 mcg/hour patch weekly 1 patch topical QWEEK clindamycin HCl 150 mg capsule 450 mg PO TID 10 Days Qty: 90 0RF calcium acetate(phosphat bind) 667 mg capsule 676 mg PO TID Patient Comments: TAKE 1 CAPSULE BY MOUTH THREE TIMES A DAY WITH FOOD folic acid 800 mcg tablet 0.8 mg PO DAILY Patient Comments: TAKE 1 TABLET BY MOUTH EVERY DAY levothyroxine 25 mcg tablet 25 mcg PO DAILY Patient Comments: TAKE 1 TABLET BY MOUTH EVERY DAY BEFORE BREAKFAST insulin aspart U-100 100 unit/mL (3 mL) insulin pen SUBCUT Patient Comments: PLEASE SEE ATTACHED FOR DETAILED DIRECTIONS olanzapine 5 mg tablet 5 mg PO QHS Patient Comments: TAKE 1 TABLET BY MOUTH EVERYDAY AT BEDTIME amlodipine 5 mg tablet 5 mg PO DAILY hydralazine 25 mg tablet 25 mg PO TID insulin glargine [Lantus Solostar U-100 Insulin] 100 unit/mL (3 mL) insulin pen 20 unit subcut DAILY lidocaine-silicone, adhesive topical Patient Comments: 1 patch daily melatonin 5 mg capsule 5 mg PO .bedtime insulin aspart U-100 [Novolog FlexPen U-100 Insulin] 6 unit subcut TID Patient Comments: give with meals ondansetron 4 mg tablet,disintegrating 4 mg PO DAILY PRN (Reason: nausea and vomiting) pramipexole dihydrochloride 1.5 mg PO BID isosorbide dinitrate 10 mg Tablet 20 mg PO TID acetaminophen 325 mg capsule 325 mg PO Q4H PRN (Reason: fever or pain) antacid extra assorted fruit tablets 750 mg PO .every 4 hours PRN (Reason: tums) calcitriol 0.5 mcg capsule 0.5 mcg PO .COMPLEX Rx Instructions: 0.5 mcg orally three times a week; cloNIDine See Rx Instructions .ROUTE .COMPLEX Rx Instructions: 0.1mg every 4 hours as needed diphenhydramine 25 mg IV Rx Instructions: every 30 minutes as needed. loperamide [Anti-Diarrheal (loperamide)] 2 mg capsule 2 mg PO Q4H PRN (Reason: loose stool) Rx Instructions: administer after each loose stool until symptoms controlled; do not exceed 8 mg per 24 hrs Mircera See Rx Instructions .ROUTE .COMPLEX Rx Instructions: intravenous every 2 weeks nitroglycerin [Nitrostat] 0.4 mg tablet, sublingual 0.4 mg sublingual Q5M Rx Instructions: do not exceed 3 doses per episode promethazine 25 mg tablet 25 mg PO Q4H PRN (Reason: nausea and vomiting) Venofer Rx Instructions: 50 mg one time a week. cefepime in dextrose 5 % 1 gram/50 mL piggyback 1 g IV .as directed Rx Instructions: Dose with dialysis sessions. 1gm on Tue, 2gm on , 1gm on , 2gm on Tuesday. Stop date 01/30/24. Dx: MSSA endocarditis. Weekly bmp and cbc. Fax to [phone]. aspirin 81 mg capsule 81 mg PO DAILY Qty: 30 1RF clindamycin HCl 150 mg capsule 450 mg PO TID 7 Days Qty: 63 0RF Primary Care Provider: Raúl Eric Referrals: Raúl Eric MD [Primary Care Provider] - Print Language: Armenian Disposition Disposition: Psychiatric Hospital or Unit Discharge Location: [facility]
--- NOTE | 2024-05-02 23:02 | ED.RN ---
Per Dr. Jaeger, no sitter needed at this time.
[2024-05-02 23:27] LABS: Absolute Lymphocyte Count 0.62 X10^3/uL (0.83-4.51); Absolute Neutrophil Count 4.2 X10^3/uL (2.0-7.7); Basophil# 0.02 X10^3/uL; Basophil% 0.4 % (0-1); Eosinophil# 0.09 X10^3/uL; Eosinophils% 1.7 % (0-5); Hematocrit 28.6 % (37-47); Lymphocyte # 0.62 X10^3/ul (0.83-4.51); Lymphocyte % 11.5 % (19-41); Mean Corp Hgb Conc 31.5 g/dL (32-36); Mean Corpuscular Hgb 29.7 pg (27.0-32.0); Mean Corpuscular Volume 94.4 fL (81-99); Mean Platelet Vol. 9.9 fl (6.2-12.0); Monocyte# 0.43 X10^3/uL; NRBC Flagged by Analyzer 0 % (0-5); Neutrophil # 4.19 X10^3/uL (2.7-7.7); Neutrophil % 77.8 % (47-70); Platelet Count 284 K/mm3 (150-450); RBC Distribution Width CV 14.6 % (11.6-14.6); RBC Distribution Width SD 50.1 fl (35.1-43.9); Red Blood Count 3.03 M/mm3 (4.2-5.4); White Blood Count 5.4 K/mm3 (4.4-11.0)
[2024-05-02 23:36] VITALS: BP 180/89; PULSE 109; RESP 18; O2SAT 98
[2024-05-02 23:52] LABS: Alcohol, Blood (Medical)-Serum < 3.0 mg/dL
[2024-05-02 23:53] LABS: Anion Gap 6 (5-15); BUN 49 mg/dL (7-18); Calcium,Total 7.3 mg/dL (8.5-10.1); Chloride 98 mmol/L (98-107); Creatinine, Serum 4.47 mg/dL (0.55-1.02); EST Glomerular Filtration Rate 11 mL/min (>60); Est Glom Filt Rate - Afr Amer 13 mL/min (>60); Estimated Creatinine Clearance 13.94 ml/min; Glucose 641 mg/dL (74-106); Potassium 4.4 mmol/L (3.5-5.1); Sodium Level 135 mmol/L (136-145)
[2024-05-03] MEDS: Insulin Lispro 100 UNIT/ML INSULN.PEN 15 UNIT SC (00:05)
[2024-05-03] MEDS: Lidocaine 2% Viscous15 ML UDC 15 ML PO (01:03)
[2024-05-03] MEDS: Mag /Aluminum/Simeth WCH UDC 30 ML ORAL.SUSP PO (01:03)
[2024-05-03] MEDS: Pantoprazole Sodium 40 MG Tablet PO (01:03)
[2024-05-03] MEDS: Pramipexole Di-HCl 1 MG Tablet PO (01:03)
[2024-05-03 01:12] LABS: Amphetamine Urine VISTA NEGATIVE (<1000 ng/mL); Barbiturate Urine VISTA NEGATIVE (< 200 ng/mL); Benzodiazepine Urine VISTA NEGATIVE (< 200 ng/mL); Cocaine Urine VISTA NEGATIVE (< 300 ng/mL); Ecstacy Urine VISTA NEGATIVE (< 500 ng/mL); Methadone Urine VISTA NEGATIVE (< 300 ng/mL); PCP Urine VISTA NEGATIVE (< 25 ng/mL); THC Urine VISTA NEGATIVE (< 50 ng/mL); Vista UDS pH Range 7
[2024-05-03 01:26] LABS: Bedside Glucose 359 mg/dL (74-106)
[2024-05-03 03:37] VITALS: BP 141/62; PULSE 85; RESP 17; O2SAT 98
[2024-05-03] MEDS: Carvedilol 12.5 MG Tablet PO (03:41)
[2024-05-03] MEDS: hydrOXYzine PAM 25 MG Capsule PO (03:41)
[2024-05-03] MEDS: Acetaminophen 500 MG Tablet 1000 MG PO ×2 (03:41→12:00)
[2024-05-03 03:45] LABS: Bedside Glucose 163 mg/dL (74-106)
[2024-05-03 08:01] LABS: Bedside Glucose 226 mg/dL (74-106)
--- NOTE | 2024-05-03 11:14 | ED.RN ---
THIS RN SPOKE WITH PIEDAD LAINEZ. FATOU JUST FOUND OUT THAT HER AUNT WAS HERE IN THE ED. GIVEN UPDATE ON PATIENT PLAN OF CARE. FATOU STATES SHE WOULD PREFER HER TO GO TO [facility]. IT IS EXPLAINED THEY FOR SURE DO NOT HAVE BEDS TODAY BUT HER REQUEST WILL BE PASSED ON TO CRISIS., THIS RN SPOKE WITH RONA FROM [facility]. HE WAS GIVEN AURELIO BARRIOS'S PHONE NUMBER.
[2024-05-03 11:17] VITALS: BP 145/100; PULSE 84; RESP 16; O2SAT 95
[2024-05-03] MEDS: Ziprasidone IM 20 MG/ML VIAL 10 MG IM (15:47)
[2024-05-03 19:00] VITALS: BP 181/110; PULSE 72; RESP 18; TEMP 36.4; O2SAT 99
--- NOTE | 2024-05-03 19:32 | EKG12_ITS ---
Test Reason : MHC Blood Pressure : / mmHG Vent. Rate : 088 BPM Atrial Rate : 088 BPM P-R Int : 168 ms QRS Dur : 090 ms QT Int : 392 ms P-R-T Axes : 060 006 037 degrees QTc Int : 474 ms Normal sinus rhythm Normal ECG Confirmed by MARIELENA DELVALLE, SINDY ([id number]), sound editor DAVID CARCAMO ([id number]) on 05/08/2024 1:55:44 PM Referred By: Confirmed By:MARISOL PEGUERO MD
[2024-05-03 20:09] LABS: Acetaminophen (Tylenol) Level < 2.0 ug/mL (10.0-30.0); Salicylate < 1.7 mg/dL (2.8-20.0)
[2024-05-03 20:18] LABS: Thyroid Stim Hormone (TSH) 2.09 uIU/mL (0.358-3.74)
[2024-05-03 20:22] LABS: Bedside Glucose 346 mg/dL (74-106)
[2024-05-03 20:37] LABS: Mucous, Urine 0 SEEN /hpf (<or=2+)
[2024-05-03 20:38] LABS: Color, Urine Yellow (Yellow); Glucose, Dipstick 1000 mg/dl (Normal); Ketone-Dipstick Negative (Negative); Leukocyte Esterase-Dipstick Negative /ul (Negative); Nitrite-Dipstick Negative (Negative); Occult Blood-Urine 25 /ul (Negative); Protein-Dipstick 100 mg/dl (Negative); Urine Bilirubin Dipstick Negative (Negative); Urine Clarity Clear (Clear); Urine Urobilinogen Normal (Normal)
[2024-05-03 20:59] LABS: Red Blood Cells-Urine 0-5 SEEN /hpf (0-5); Squamous Epithelial Cells - UA 10-25 SEEN /hpf (5-10)
[2024-05-03 21:00] LABS: Bacteria 1+ /hpf (None Seen); White Blood Cells 0-5 SEEN /hpf (0-5)
[2024-05-03 21:07] LABS: Yeast-Urine 1+ /hpf (None Seen)
[2024-05-04] VITALS (7 sets, daily range): BP systolic 162–185; BP diastolic 80–92; PULSE 81–88; RESP 15–20; TEMP 36.6–36.7; O2SAT 94–100; BMI 27.5
--- NOTE | 2024-05-04 05:14 | PCM.HP.STD ---
HPI - General General Date of Admission: 05/04/24 Date of Service: 05/04/24 Chief Complaint: Adult failure to thrive HPI Narrative DIONY ROCHA, is a 58 F who initially presented to [facility] ED in the late evening of 05/02. Patient presented via EMS stating she wanted to stop dialysis and that she was ready to meet [place]. On arrival, she was placed under suicide precautions and crisis was called in to evaluate the patient. Crisis felt that the patient would require placement. [facility] slip was filled out and patient was initially accepted to [facility] for both psychiatric and medical care. However, [facility] called back several hours later after reviewing her chart and stated she was too medically complex further facility. ED staff spoke with patient's family over the phone and they noted that patient lives on her own but her functional status has been declining and they are very concerned about her being able to take care of herself at home. On reevaluation of the patient, patient denied any suicidal ideation. At that point, hospitalist was then contacted to admit the patient for adult failure to thrive. I saw the patient at bedside in the ED this morning. Patient was sitting up fairly comfortably in bed, conversing normally, in no acute distress. She was fatigued appearing and somewhat anxious appearing but was answering all questions appropriately for me. However, patient did not seem to have a good insight into her situation. She was asking when she would be able to go home and denied having any concerns about her living situation. She was agreeable to coming to the hospital for further evaluation and for dialysis but was skeptical that she would need placement on discharge. She states that she has ongoing low to mid back pain which is chronic for her, but it is slightly worse now due to being in bed for a long time in the ED. She felt fatigued and somewhat dry and dehydrated. Otherwise she denied any other concerns. Vitals this morning notable for hypertension to 170s to 180s systolic and mild sinus tachycardia, otherwise unremarkable. Labs notable for hemoglobin 9.0 (at baseline), otherwise unremarkable. Notably, patient's blood sugar was over 600 on arrival to the ED but improved back into the 100s with insulin administration; she is a known diabetic on home insulin. No imaging required in the ED. [facility] Medical History (Updated 05/04/24 @ 05:[address] Sergio John DO) Drowsiness Mental status, decreased Carotid artery stenosis MSSA bacteremia ESRD on hemodialysis Osteomyelitis Anemia in chronic illness Type 2 diabetes mellitus Foot osteomyelitis, left Chronic renal disease, stage 4, severely decreased glomerular filtration rate (GFR) between 15-29 mL/min/1.73 square meter Acute on chronic anemia Chronic ulcer of right foot with necrosis of bone Chronic kidney disease, stage 4 (severe) Diabetes mellitus with diabetic polyneuropathy Diabetic foot ulcers Chronic kidney disease, stage 3b Charcot's joint, right ankle and foot Charcot's joint, left ankle and foot Cellulitis Acute lumbar radiculopathy Essential hypertension Adult failure to thrive COVID-19 (08/28/21) Chronic ulcer of right leg with fat layer exposed Ulcer of left foot with fat layer exposed Chronic ulcer of right foot with fat layer exposed Hyperparathyroidism, secondary renal Iron deficiency anemia Bilateral edema of lower extremity Chronic foot pain Non-pressure chronic 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 layer exposed Debility Charcot's joint of right foot Diabetes Non-smoker Myocardial infarct Hypertension TIA (transient ischemic attack) Amputation foot, bilat Non-pressure chronic ulcer of other part of left foot with fat layer exposed 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 Ulcer of left foot with necrosis of muscle Ulcer of left foot with muscle involvement without evidence of necrosis Anxiety and depression Diabetic infection of left foot Delayed wound healing Non-compliance Diabetic polyneuropathy Ischemic cardiomyopathy Obesity (BMI 30.0-34.9) Acquired varus deformity of left foot Acquired varus deformity of right foot Atherosclerosis of [place] coronary artery of [place] heart without angina pectoris Hemoglobin A1c greater than 9.0% NSTEMI (non-ST elevated myocardial infarction) (09/20/18) GERD (gastroesophageal reflux disease) HLD (hyperlipidemia) Back pain, chronic RLS (restless legs syndrome) Home Medications ?Medication ?Instructions ?Recorded ?Last Taken ?Type paroxetine HCl 20 mg tablet 20 mg PO DAILY DEPRESSION 07/07/21 04/07/22 History bupropion HCl 150 mg 24 hr tablet, 150 mg PO DAILY mood 02/04/22 04/07/22 History extended release sennosides 8.6 mg-docusate sodium 2 tab PO BID PRN PRN Constipation 04/24/22 Unknown Rx 50 mg tablet (Stool #0 tabs Softener-Stimulant Laxative) ascorbic acid (vitamin C) 500 mg 500 mg PO BID supplement 05/05/22 Unknown History tablet (Vitamin C) clopidogrel 75 mg tablet 75 mg PO DAILY prevent stroke 07/19/22 Unknown History ferrous sulfate 325 mg (65 mg 325 mg PO .three times a week 07/19/22 Unknown History iron) tablet anemia pantoprazole 40 mg tablet,delayed 40 mg PO BIDCM GERD 07/19/22 Unknown History release insulin glargine-yfgn 100 unit/mL 5 unit (0.05 mL) subcut QHS blood 07/21/22 Unknown Rx (3 mL) subcutaneous pen sugar #15 mL insulin lispro 100 unit/mL See Protocol subcut TIDAC #0 mL 07/21/22 Unknown Rx subcutaneous pen (Humalog KwikPen (U-100) Insulin) cyclobenzaprine 5 mg tablet 5 mg PO TID PRN muscle spasm #21 11/26/23 Unknown Rx tabs gabapentin 100 mg capsule 100 mg PO .COMPLEX PRN pain 11/26/23 Unknown History Mircera See Rx Instructions .Route 12/16/23 Unknown History .COMPLEX dialysis Venofer iron 12/16/23 Unknown History acetaminophen 325 mg capsule 325 mg PO Q4H PRN fever or pain 12/16/23 Unknown History amlodipine 5 mg tablet 5 mg PO DAILY bp 12/16/23 Unknown History antacid extra assorted fruit 750 mg PO .every 4 hours PRN tums 12/16/23 Unknown History tablets calcitriol 0.5 mcg capsule 0.5 mcg PO .COMPLEX on dialysis 12/16/23 Unknown History calcium acetate(phosphat bind) 667 676 mg PO TID is on dialysis 12/16/23 Unknown History mg capsule cloNIDine See Rx Instructions .Route 12/16/23 Unknown History .COMPLEX dialysis diphenhydramine 25 mg IV itching 12/16/23 Unknown History folic acid 800 mcg tablet 0.8 mg PO DAILY supplement 12/16/23 Unknown History hydralazine 25 mg tablet 25 mg PO TID bp 12/16/23 Unknown History insulin aspart U-100 6 unit subcut TID blood glucose 12/16/23 Unknown History insulin aspart U-100 100 unit/mL subcut 12/16/23 Unknown History (3 mL) subcutaneous pen insulin glargine 100 unit/mL (3 20 unit subcut DAILY blood glucose 12/16/23 Unknown History mL) subcutaneous pen (Lantus Solostar U-100 Insulin) isosorbide dinitrate 10 mg tablet 20 mg PO TID bp and heart 12/16/23 Unknown History levothyroxine 25 mcg tablet 25 mcg PO DAILY thyroid 12/16/23 Unknown History lidocaine-silicone, adhesive topical pain 12/16/23 Unknown History loperamide 2 mg capsule 2 mg PO Q4H PRN loose stool 12/16/23 Unknown History (Anti-Diarrheal (loperamide)) melatonin 5 mg capsule 5 mg PO .bedtime sleep 12/16/23 Unknown History nitroglycerin 0.4 mg sublingual 0.4 mg sublingual Q5M chest pain 12/16/23 Unknown History tablet (Nitrostat) olanzapine 5 mg tablet 5 mg PO QHS sleep 12/16/23 Unknown History ondansetron 4 mg disintegrating 4 mg PO DAILY PRN nausea and 12/16/23 Unknown History tablet vomiting pramipexole dihydrochloride 1.5 mg PO BID unknown 12/16/23 Unknown History promethazine 25 mg tablet 25 mg PO Q4H PRN nausea and 12/16/23 Unknown History vomiting aspirin 81 mg capsule 81 mg PO DAILY #30 caps 12/26/23 Unknown Rx cefepime 1 gram/50 mL in dextrose 1 g IV .as directed 12/26/23 Unknown Rx 5 % intravenous piggyback atorvastatin 40 mg tablet 40 mg PO DAILY 03/18/24 Unknown History buprenorphine 5 mcg/hour weekly 1 patch topical QWEEK 03/18/24 Unknown History transdermal patch carvedilol 25 mg tablet 25 mg PO BID 03/18/24 Unknown History clindamycin HCl 150 mg capsule 450 mg (3 x 150 mg) PO TID 7 days 04/19/24 Unknown Rx #63 CAPSULES clindamycin HCl 150 mg capsule 450 mg (3 x 150 mg) PO TID 10 days 04/25/24 Unknown Rx #90 caps Allergy/AdvReac Type Severity Reaction Status Date / Time Penicillins Allergy swelling Verified 04/25/24 18:14 in throat vancomycin Allergy Itching Verified 04/25/24 18:14 metronidazole AdvReac Nausea Verified 04/25/24 18:14 oxycodone (From OxyContin) AdvReac Shortness Verified 04/25/24 18:14 of breath Family History Mother Diabetes CVA (cerebral vascular accident) Brother CAD (coronary artery disease) CABG X 3 Cancer testicular Diabetes Brother CAD (coronary artery disease) CABG X3 Diabetes Brother CAD (coronary artery disease) Stents Diabetes Sister CAD (coronary artery disease) CABG x 3 CVA (cerebral vascular accident) Diabetes Surgical History History of History of foot surgery History of bilateral carpal tunnel release History of rotator cuff surgery History of coronary artery stent placement (12/31/20) Social History household members: none number of children: 2 current occupational status: disabled Smoking Status: Never smoker alcohol intake: never substance use type: does not use caffeine: Yes Type: carbonated beverages Number of servings: 2 ROS Constitutional Constitutional: Reports fatigue and weakness; Denies chills, fever(s) or malaise Eyes Eyes: Denies change in vision Cardiovascular Cardiovascular: Denies chest pain Respiratory/Chest Respiratory/Chest: Denies cough, shortness of breath at rest or wheezing Gastrointestinal Gastrointestinal: Reports diarrhea; Denies abdominal pain, constipation, nausea or vomiting Musculoskeletal Musculoskeletal: Reports back pain; Denies arthralgias or myalgias Neurologic Neurologic: Denies dizziness, focal weakness or headache(s) Vital Signs Vital Signs Vital Signs: 05/03/24 11:17 05/03/24 19:00 05/04/24 03:00 Temperature 97.6 F L 98.1 F Temperature Source Oral Oral Pulse Rate 84 72 84 Respiratory Rate 16 18 16 Blood Pressure 145/100 H 181/110 H 165/80 H Blood Pressure Mean 115 133 108 Pulse Ox 95 99 94 Oxygen Delivery Method Room Air Room Air 05/04/24 04:48 Temperature 98.1 F Temperature Source Pulse Rate 81 Respiratory Rate 18 Blood Pressure 179/88 H Blood Pressure Mean 118 Pulse Ox 97 Oxygen Delivery Method Weight Weight: 75.4 kg Body Mass Index (BMI) 27.6 Physical Exam Const alert, oriented x3 and no apparent distress Constitutional Narrative: Middle-age female, chronically ill-appearing, appears older than stated age, fatigued and mildly anxious appearing, otherwise sitting up comfortably in bed, conversing normally, no acute distress. General Appearance: cooperative and comfortable HEENT normocephalic, head/scalp atraumatic, hearing grossly normal bilaterally and nasal mucous membranes and turbinates normal Eyes PERRL, EOMs intact bilaterally and conjunctivae normal Neck full ROM Chest inspection of chest normal Resp normal respiratory effort, normal air movement, no use of accessory muscles and clear to auscultation bilaterally Cardio regular rate, regular rhythm, no murmurs and peripheral pulses 2+ throughout GI normal to inspection, nondistended, normoactive bowel sounds, soft to palpation, non-tender and non-distended Back/Spine normal ROM Back/Spine Narrative: Mild tenderness to palpation in paraspinal muscular areas of low back. Extremity normal to inspection, full ROM and no pedal edema Skin no rashes or lesions noted Neuro moves all extremities and no focal motor deficits Speech: speech normal Psych mental status grossly normal Mood & Affect: anxious Results Lab / Micro Data 05/02/24 23:18 05/02/24 23:18 Labs: Laboratory Results - last 24 hr 05/02/24 23:18: TSH 2.09, Salicylates < 1.7 L, Acetaminophen < 2.0 L 05/03/24 00:18: Urine Color Yellow, Urine Clarity Clear, Urine pH 8.0, Ur Specific [place] 1.010, Urine Protein 100 H, Urine Glucose (UA) 1000 H, Urine Ketones Negative, Urine Occult Blood 25 H, Urine Nitrite Negative, Urine Bilirubin Negative, Urine Urobilinogen Normal, Ur Leukocyte Esterase Negative, Urine RBC 0-5 SEEN, Urine WBC 0-5 SEEN, Ur Squamous Epith Cells 10-25 SEEN, Urine Bacteria 1+, Urine Mucus 0 SEEN, Urine Yeast 1+ 05/03/24 07:43: POC Glucose 226 H 05/03/24 20:03: POC Glucose 346 H Assessment & Plan Assessment/Plan (1) Adult failure to thrive: (2) Hyperglycemia: (3) ESRD (end stage renal disease) on dialysis: PLAN: Plan Patient is a 58-year-old female who presented [facility] ED on 05/04/2024 with adult failure to thrive. 1. Adult failure to thrive ? Admit under inpatient status to [facility]. PT/OT/case management consulted. Patient with multiple significant medical comorbidities including ESRD on HD, recent history of subacute ischemic CVA and MSSA bacteremia secondary to permacath infection in December, history of chronic foot wounds with left foot osteomyelitis back in 2021. Lives at home alone and per family, has had significant difficulty taking care of herself at home. Patient was alert and oriented for me but has poor insight into her medical condition; family notably has concerned that she may lack decision-making capacity and her niece is apparently working on obtaining guardianship for her. Appreciate further therapy and social work recommendations. 2. ESRD on HD ? Nephrology consulted. On HD MWF, last session on 05/02. Planning for HD today. Monitor daily BMP. 3. Type 2 diabetes mellitus with hyperglycemia ? Blood glucose over 600 on arrival to the ED, improved with insulin administration. Suspect patient was not taking her home insulin. Will treat with Lantus 20 units during the day and sliding scale insulin with meals for now, adjust as needed. 4. Concern for suicidal ideation ? See HPI for further details. Patient has history of anxiety/depression and has worsening functional status but denied suicidal ideation. No need for suicidal precautions at this time. Chronic medical conditions: ? Anxiety/depression/chronic pain with neuropathy/RLS: Continue home meds. ? History of subacute ischemic CVA, carotid stenosis, CAD s/p stents, hypertension, hyperlipidemia: Unclear if patient on both aspirin and Plavix, will continue aspirin for now but hold Plavix. Continue other home medications. ? History of chronic foot wounds with prior history of left foot osteomyelitis: Follows with outpatient podiatry. Left foot wounds stable. ? History of MSSA bacteremia secondary to permacath infection ? Hypothyroidism: Continue home Synthroid. DVT prophylaxis: Heparin subcu CODE STATUS: Full code, verified Expected disposition: TBD Total clinical time spent by myself addressing the patient's medical issues, reviewing all the data, and collaborating with patient's care team: 75 minutes. Charges/Coding Visit Charges Inpatient E&M: 54010 Init Hosp L3
[2024-05-04] MEDS: Acetaminophen 500 MG Tablet 1000 MG PO (05:17)
--- NOTE | 2024-05-04 07:14 | PCM.PN.HOSP ---
Reason for Visit Reason for Visit: Diagnoses End stage renal disease (05/04/24) Adult failure to thrive (05/04/24) Hyperglycemia, unspecified (05/04/24) Dependence on renal dialysis (05/04/24) Objective Data Objective Data Vital Signs: Vital Signs Temp Pulse Resp BP Pulse Ox O2 Del Method 97.9 F 88 20 H 162/92 H 98 Room Air 05/04/24 06:52 05/04/24 06:52 05/04/24 06:52 05/04/24 06:52 05/04/24 06:52 05/04/24 06:52 Oxygen Delivery Method Room Air Weight: 165 lb 5.547 oz Body Mass Index (BMI) 27.5 Lab / Micro Data 05/02/24 23:18 05/02/24 23:18 Labs: Laboratory Results - last 24 hr 05/02/24 23:18: TSH 2.09, Salicylates < 1.7 L, Acetaminophen < 2.0 L 05/03/24 00:18: Urine Color Yellow, Urine Clarity Clear, Urine pH 8.0, Ur Specific [place] 1.010, Urine Protein 100 H, Urine Glucose (UA) 1000 H, Urine Ketones Negative, Urine Occult Blood 25 H, Urine Nitrite Negative, Urine Bilirubin Negative, Urine Urobilinogen Normal, Ur Leukocyte Esterase Negative, Urine RBC 0-5 SEEN, Urine WBC 0-5 SEEN, Ur Squamous Epith Cells 10-25 SEEN, Urine Bacteria 1+, Urine Mucus 0 SEEN, Urine Yeast 1+ 05/03/24 07:43: POC Glucose 226 H 05/03/24 20:03: POC Glucose 346 H Physical Exam Narrative Seen and examined. On discussion with the social media executive. Patient cannot about take care of herself. Her house is in total disarray, unorganized and has restricted ADL. She is pink slipped for suicidal ideation. She has chronic ulcer in both feet, diabetic foot ulcer. Not related to dialysis treatment Tuesday and Tuesday, Woo. Follows outside tour manager. Physical exam General: Alert, Oriented x3, Cooperative, BMI 27.5 kg/m?. HEENT: Atraumatic, PERRLA, EOMI, Normocephalic Oral: Oral mucosa dry. No Gingival or Mucosal Lesions/ Ulcerations Neck: Supple, No JVD, Negative Carotid Bruits Chest wall/Lungs: Left chest tunneled dialysis catheter. Air entry diminished in bilateral lung bases. No crepitation/rhonchi Cardiovascular: Regular rate, Regular Rhythm, Normal S1, Normal S2, systolic murmur present. Abdomen: Bowel Sounds Present, Soft, Non Tender, Non-Distended : No dysuria. No renal angle tenderness. No suprapubic tenderness. Extremities: No edema, Capillary Refill Less than 3 Seconds Skin: Chronic bilateral feet ulcer, diabetic for a long time. Musculoskeletal: No Tenderness to Palpation of Joints or Extremities, mild muscle atrophy of bilateral thigh and calf muscles. Neurological: Cranial nerves II-XII grossly intact, DTR 2+/4. No acute focal neurological deficit. Psych/Mental Status: Flat affect. Assessment & Plan Assessment/Plan (1) Adult failure to thrive: (2) Hyperglycemia: (3) ESRD (end stage renal disease) on dialysis: PLAN: Plan Patient is a 58-year-old female who presented ED on 05/04/2024 with adult failure to thrive. 1. Acute debility, unable to take care herself in adult failure to thrive ? Admit under inpatient status to [facility]. PT/OT/case management consulted. Patient with multiple significant medical comorbidities including ESRD on HD, recent history of subacute ischemic CVA and MSSA bacteremia secondary to permacath infection in December, history of chronic foot wounds with left foot osteomyelitis back in 2021. Lives at home alone and per family, has had significant difficulty taking care of herself at home. Patient was alert and oriented for me but has poor insight into her medical condition; family notably has concerned that she may lack decision-making capacity and her niece is apparently working on obtaining guardianship for her. Appreciate further therapy and social work recommendations. 2. ESRD on HD ? Nephrology consulted. On HD MWF, last session on 05/02. Dialysis arrangement Tuesday and Tuesday. Monitor daily BMP. 3. Type 2 diabetes mellitus with hyperglycemia ? Blood glucose over 600 on arrival to the ED, improved with insulin administration. Suspect patient was not taking her home insulin. Glucose 346-393. On Lantus 20 units subcut daily. Start on scheduled Humalog insulin 3 times daily AC. Accu-Chek before meals and at bedtime with Humalog sliding scale coverage and hypoglycemia protocol. 4. Concern for suicidal ideation ? Patient has history of anxiety/depression and has worsening functional status but denied suicidal ideation. She is not compliant with dialysis and at one time she talks about getting kidney transplant. I do not think she has insight to for multiple comorbidities. Discussed with the social media executive. She is pink slipped. . Chronic medical conditions: ? Anxiety/depression/chronic pain with neuropathy/RLS: Continue home meds. ? History of subacute ischemic CVA, carotid stenosis, CAD s/p stents, hypertension, hyperlipidemia: Unclear if patient on both aspirin and Plavix, will continue aspirin for now but hold Plavix. Continue other home medications. ? History of chronic foot wounds with prior history of left foot osteomyelitis: Follows with outpatient podiatry. Left foot wounds stable. ? History of MSSA bacteremia secondary to permacath infection ? Hypothyroidism: Continue home Synthroid. DVT prophylaxis: Heparin subcu CODE STATUS: Full code, verified Expected disposition: TBD Charges/Coding Visit Charges Inpatient E&M: 03079 Subs Hosp L2
[2024-05-04 08:36] LABS: Bedside Glucose 393 mg/dL (74-106)
[2024-05-04] MEDS: Folic Acid 1 MG Tablet PO (09:00)
[2024-05-04] MEDS: buPROPion (XL) 150 MG TABLET.XL PO (09:00)
[2024-05-04] MEDS: Carvedilol 25 MG Tablet PO ×2 (09:00→22:22)
[2024-05-04] MEDS: Pantoprazole Sodium 40 MG Tablet PO (09:00)
[2024-05-04] MEDS: amLODIPine 5 MG Tablet PO (09:00)
[2024-05-04] MEDS: Atorvastatin Calcium 40 MG Tablet PO (09:00)
[2024-05-04] MEDS: Paroxetine 20 MG Tablet PO (09:00)
[2024-05-04] MEDS: Calcium Acetate 667 MG Capsule PO ×3 (09:00→17:34)
[2024-05-04] MEDS: Aspirin 81 MG TAB.CHEW PO (09:00)
[2024-05-04] MEDS: hydrALAZINE 25 MG Tablet PO ×3 (09:00→22:22)
[2024-05-04] MEDS: Heparin Injection (Vial) 5,000 UNIT/ML VIAL 5000 UNIT SC ×2 (09:01→22:22)
[2024-05-04] MEDS: Insulin Glargine-YFGN 100 UNIT/ML Pen 20 UNIT SC (09:01)
[2024-05-04] MEDS: Insulin Lispro 100 UNIT/ML INSULN.PEN SC ×3 (09:06→22:23)
--- NOTE | 2024-05-04 09:45 | CASEMGMT ---
Jonna from [facility] called and informed RN BEKA that patient home is unlivable. Reports family that was assisting has walked away at this point, pt utilities are about to be turned off on May.11 and owes $5,000 in utilities. Reports pt does not have a furnace. Reports pt not able to handle medications properly, pt does not have food in the house and will go several days without eating, feels that pt is not safe to return home and needs placement. Jonna would like a call back with update on DC Plan at [phone]. Provided information to SW to follow up with pt.
--- NOTE | 2024-05-04 10:56 | CASEMGMT ---
Social Work- LUCRETIA spoke with SABRA Paniagua who updates that psych placement is being pursued, however, pt has been declined by several facilities including [facility]. [facility] states declinations are d/t hospitals feeling that they cannot force dialysis. [facility] is continuing to work to find placement. LUCRETIA shared concerns that were expressed by Eliel Coyle director of casework department. [facility] will continue to be in touch. LUCRETIA spoke with Tammi Acharya, soaping department supervisor, in regards to plan of care for pt. ERIN Johnson
[2024-05-04 11:45] LABS: Bedside Glucose 304 mg/dL (74-106)
--- NOTE | 2024-05-04 12:04 | VDUE_ITS ---
Reason For Study: AVF Mapping Right Lower Arm Left Arm Proximal Radial artery diameter 0.18 x 0.18 HX Failed Brachial / Cephalic AVF. mm. Proximal Radial artery waveform is triphasic . Right Arm Right Brachial artery diameter 0.43 x 0.43 mm. Right Brachial artery waveform is triphasic . Cephalic Vein at proximal upper arm measures 0.32 x 0.30 mm. Cephalic Vein at mid upper arm measures 0.32 x 0.32 mm. Cephalic Vein distal upper arm measures 0.26 x 0.24 mm. Cephalic Vein proximal forearm measures 0.29 x 0.31 mm. Cephalic Vein at mid forearm measures 0.28 x 0.30 mm. Cephalic Vein at distal forearm measures 0.13 x 0.12 mm. Proximal Basilic vein measures 0.53 x 0.56 mm. Branch noted at mid. Mid Basilic vein measures 0.23 x 0.21 mm. Distal Basilic vein measures 0.28 x 0.28 mm. VL/Dialysis Vein Map PRE-OP BILAT Interpretation Summary Right upper extremity arteries patent with normal waveforms and measurements ab ove. Right upper extremity veins patent with measurements above. Ordering Physician: Angel Joel Referring Physician: MD Jeaneth Raúl Performed By: Gene Tyson, RVT ???
--- NOTE | 2024-05-04 12:05 | PCM.CONS.R ---
Assessment & Plan Assessment/Plan (1) ESRD (end stage renal disease) on dialysis: PLAN: On hemodialysis, Tuesday, Tuesday, Tuesday. Last dialysis was Tuesday. We will arrange for dialysis today. Orders in chart. She had some questions about kidney transplant evaluation. Advised her to call transplant center. Presented with failure to thrive. Family in the process of getting guardianship. She says she lives at home by herself. This might be an issue with transplant. HPI Consult Data Date of Consult: 05/04/24 HPI Narrative Reason for Consultation: ESRD HPI Narrative: DIONY ROCHA, is a 58 F who presents to the hospital with failure to thrive. Nephrology on consultation in view of ESRD. Currently on hemodialysis Tuesday, Tuesday, Tuesday. She goes to [facility]. has a right IJ tunneled dialysis catheter. Primary executive vice president and chief financial officer Dr. Flynn. This past Tuesday. Currently she lives at home, has not been able to take care of herself. Niece is in the process of getting guardianship. Currently denies any complaints. She has chronic lower extremity wounds. History of bacteremia MSSA related earlier this year. Denies any issues with catheter. [facility] Medical History Drowsiness Mental status, decreased Carotid artery stenosis MSSA bacteremia ESRD on hemodialysis Osteomyelitis Anemia in chronic illness Type 2 diabetes mellitus Foot osteomyelitis, left Chronic renal disease, stage 4, severely decreased glomerular filtration rate (GFR) between 15-29 mL/min/1.73 square meter Acute on chronic anemia Chronic ulcer of right foot with necrosis of bone Chronic kidney disease, stage 4 (severe) Diabetes mellitus with diabetic polyneuropathy Diabetic foot ulcers Chronic kidney disease, stage 3b Charcot's joint, right ankle and foot Charcot's joint, left ankle and foot Cellulitis Acute lumbar radiculopathy Essential hypertension Adult failure to thrive COVID-19 (08/28/21) Chronic ulcer of right leg with fat layer exposed Ulcer of left foot with fat layer exposed Chronic ulcer of right foot with fat layer exposed Hyperparathyroidism, secondary renal Iron deficiency anemia Bilateral edema of lower extremity Chronic foot pain Non-pressure chronic 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 layer exposed Debility Charcot's joint of right foot Diabetes Non-smoker Myocardial infarct Hypertension TIA (transient ischemic attack) Amputation foot, bilat Non-pressure chronic ulcer of other part of left foot with fat layer exposed 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 Ulcer of left foot with necrosis of muscle Ulcer of left foot with muscle involvement without evidence of necrosis Anxiety and depression Diabetic infection of left foot Delayed wound healing Non-compliance Diabetic polyneuropathy Ischemic cardiomyopathy Obesity (BMI 30.0-34.9) Acquired varus deformity of left foot Acquired varus deformity of right foot Atherosclerosis of [place] coronary artery of [place] heart without angina pectoris Hemoglobin A1c greater than 9.0% NSTEMI (non-ST elevated myocardial infarction) (09/20/18) GERD (gastroesophageal reflux disease) HLD (hyperlipidemia) Back pain, chronic RLS (restless legs syndrome) Home Medications ?Medication ?Instructions ?Recorded ?Last Taken ?Type paroxetine HCl 20 mg tablet 20 mg PO DAILY DEPRESSION 07/07/21 04/07/22 History bupropion HCl 150 mg 24 hr tablet, 150 mg PO DAILY mood 02/04/22 04/07/22 History extended release sennosides 8.6 mg-docusate sodium 2 tab PO BID PRN PRN Constipation 04/24/22 Unknown Rx 50 mg tablet (Stool #0 tabs Softener-Stimulant Laxative) ascorbic acid (vitamin C) 500 mg 500 mg PO BID supplement 05/05/22 Unknown History tablet (Vitamin C) clopidogrel 75 mg tablet 75 mg PO DAILY prevent stroke 07/19/22 Unknown History ferrous sulfate 325 mg (65 mg 325 mg PO .three times a week 07/19/22 Unknown History iron) tablet anemia pantoprazole 40 mg tablet,delayed 40 mg PO BIDCM GERD 07/19/22 Unknown History release insulin glargine-yfgn 100 unit/mL 5 unit (0.05 mL) subcut QHS blood 07/21/22 Unknown Rx (3 mL) subcutaneous pen sugar #15 mL insulin lispro 100 unit/mL See Protocol subcut TIDAC #0 mL 07/21/22 Unknown Rx subcutaneous pen (Humalog KwikPen (U-100) Insulin) cyclobenzaprine 5 mg tablet 5 mg PO TID PRN muscle spasm #21 11/26/23 Unknown Rx tabs gabapentin 100 mg capsule 100 mg PO .COMPLEX PRN pain 11/26/23 Unknown History Mircera See Rx Instructions .Route 12/16/23 Unknown History .COMPLEX dialysis Venofer iron 12/16/23 Unknown History acetaminophen 325 mg capsule 325 mg PO Q4H PRN fever or pain 12/16/23 Unknown History amlodipine 5 mg tablet 5 mg PO DAILY bp 12/16/23 Unknown History antacid extra assorted fruit 750 mg PO .every 4 hours PRN tums 12/16/23 Unknown History tablets calcitriol 0.5 mcg capsule 0.5 mcg PO .COMPLEX on dialysis 12/16/23 Unknown History calcium acetate(phosphat bind) 667 676 mg PO TID is on dialysis 12/16/23 Unknown History mg capsule cloNIDine See Rx Instructions .Route 12/16/23 Unknown History .COMPLEX dialysis diphenhydramine 25 mg IV itching 12/16/23 Unknown History folic acid 800 mcg tablet 0.8 mg PO DAILY supplement 12/16/23 Unknown History hydralazine 25 mg tablet 25 mg PO TID bp 12/16/23 Unknown History insulin aspart U-100 6 unit subcut TID blood glucose 12/16/23 Unknown History insulin aspart U-100 100 unit/mL subcut 12/16/23 Unknown History (3 mL) subcutaneous pen insulin glargine 100 unit/mL (3 20 unit subcut DAILY blood glucose 12/16/23 Unknown History mL) subcutaneous pen (Lantus Solostar U-100 Insulin) isosorbide dinitrate 10 mg tablet 20 mg PO TID bp and heart 12/16/23 Unknown History levothyroxine 25 mcg tablet 25 mcg PO DAILY thyroid 12/16/23 Unknown History lidocaine-silicone, adhesive topical pain 12/16/23 Unknown History loperamide 2 mg capsule 2 mg PO Q4H PRN loose stool 12/16/23 Unknown History (Anti-Diarrheal (loperamide)) melatonin 5 mg capsule 5 mg PO .bedtime sleep 12/16/23 Unknown History nitroglycerin 0.4 mg sublingual 0.4 mg sublingual Q5M chest pain 12/16/23 Unknown History tablet (Nitrostat) olanzapine 5 mg tablet 5 mg PO QHS sleep 12/16/23 Unknown History ondansetron 4 mg disintegrating 4 mg PO DAILY PRN nausea and 12/16/23 Unknown History tablet vomiting pramipexole dihydrochloride 1.5 mg PO BID unknown 12/16/23 Unknown History promethazine 25 mg tablet 25 mg PO Q4H PRN nausea and 12/16/23 Unknown History vomiting aspirin 81 mg capsule 81 mg PO DAILY #30 caps 12/26/23 Unknown Rx cefepime 1 gram/50 mL in dextrose 1 g IV .as directed 12/26/23 Unknown Rx 5 % intravenous piggyback atorvastatin 40 mg tablet 40 mg PO DAILY 03/18/24 Unknown History buprenorphine 5 mcg/hour weekly 1 patch topical QWEEK 03/18/24 Unknown History transdermal patch carvedilol 25 mg tablet 25 mg PO BID 03/18/24 Unknown History clindamycin HCl 150 mg capsule 450 mg (3 x 150 mg) PO TID 7 days 04/19/24 Unknown Rx #63 CAPSULES clindamycin HCl 150 mg capsule 450 mg (3 x 150 mg) PO TID 10 days 04/25/24 Unknown Rx #90 caps Allergy/AdvReac Type Severity Reaction Status Date / Time Penicillins Allergy swelling Verified 04/25/24 18:14 in throat vancomycin Allergy Itching Verified 04/25/24 18:14 metronidazole AdvReac Nausea Verified 04/25/24 18:14 oxycodone (From OxyContin) AdvReac Shortness Verified 04/25/24 18:14 of breath Family History Mother Diabetes CVA (cerebral vascular accident) Brother CAD (coronary artery disease) CABG X 3 Cancer testicular Diabetes Brother CAD (coronary artery disease) CABG X3 Diabetes Brother CAD (coronary artery disease) Stents Diabetes Sister CAD (coronary artery disease) CABG x 3 CVA (cerebral vascular accident) Diabetes Surgical History History of History of foot surgery History of bilateral carpal tunnel release History of rotator cuff surgery History of coronary artery stent placement (12/31/20) Social History household members: none number of children: 2 current occupational status: disabled Smoking Status: Never smoker alcohol intake: never substance use type: does not use caffeine: Yes Type: carbonated beverages Number of servings: 2 ROS ROS Narrative Negative except above Physical Exam Narrative Alert awake oriented x 3 no obvious distress no pallor no icterus no JVD s1s2 no murmurs lungs clear abdomen soft no organomegaly Lower extremities are bandaged no cyanosis Lab / Micro Data 05/02/24 23:18 05/02/24 23:18 Labs: Laboratory Results - last 24 hr 05/02/24 23:18: TSH 2.09, Salicylates < 1.7 L, Acetaminophen < 2.0 L 05/03/24 00:18: Urine Color Yellow, Urine Clarity Clear, Urine pH 8.0, Ur Specific [place] 1.010, Urine Protein 100 H, Urine Glucose (UA) 1000 H, Urine Ketones Negative, Urine Occult Blood 25 H, Urine Nitrite Negative, Urine Bilirubin Negative, Urine Urobilinogen Normal, Ur Leukocyte Esterase Negative, Urine RBC 0-5 SEEN, Urine WBC 0-5 SEEN, Ur Squamous Epith Cells 10-25 SEEN, Urine Bacteria 1+, Urine Mucus 0 SEEN, Urine Yeast 1+ 05/03/24 20:03: POC Glucose 346 H 05/04/24 08:16: POC Glucose 393 H 05/04/24 11:27: POC Glucose 304 H
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
--- NOTE | 2024-05-04 14:11 | CASEMGMT ---
Discharge Planning A list of?SNF providers including quality and resource use data and consistent with the patient's preferred geographic region, medical needs, and insurance network was created in [facility] Guide.? This list was provided to the SW. Rekha Moore Discharge Planning Asst.
[2024-05-04] MEDS: Alteplase 2 MG/2 ML Vial IV ×2 (15:09→15:10)
[2024-05-04] MEDS: 0.9% Normal Saline 1,000 ML IV.SOLN. 1000 ML OPERA.SITE (15:13)
[2024-05-04] MEDS: PureFlow B 2K Dialysis Soln 1 BAG 6 BAG PF (15:13)
--- NOTE | 2024-05-04 15:20 | CASEMGMT ---
Social Work- A list of SNF providers including quality and resource use data and consistent with the patient?s preferred geographic region, medical needs, and insurance network were provided from the [facility] Guide. SW to follow up with ERIN Cason
[2024-05-04] MEDS: LORazepam 0.5 MG Tablet PO (16:01)
--- NOTE | 2024-05-04 16:15 | CASEMGMT ---
Social Work- SW met with pt, as bedside nurse reported that pt has severe anxiety regarding dialysis. Pt initially refused dialysis. Pt reported that pt has restless leg syndrome that flares when she is receiving dialysis and it makes her anxious to know that she can't move. Pt was ultimately unable to receive dialysis d/t not being able to secure a line. Pt quickly returned to regulated state and expressed that she was no longer anxious. Pt states that she will review SNF list overnight. ERIN Johnson
--- NOTE | 2024-05-04 16:21 | NURSING ---
at 1450 cath jimmy was instilled into each port of the dialysis cath due to no blood return noted. pt states her catheter clots all the time and the dialysis unit always has a hard time with it. at 1520 blood return was noted from each port. cath jimmy aspirated and both lumens flushed with 10cc ns easliy. dressing to catheter was not intact. This RN removed dressing and noted that stitches where not attached to skin. 5cm from insertion site to bifurcation of catheter noted. Tegaderm HCG applied after area cleansed with Chlorahex. This RN attempted to initiate dialysis treatment. Red alarm 24 repeatedly alarming. After trouble shooting alarms without success, Dr Joel notified of inability to run treatment. Dr Joel stated he would address catheter issue on Tuesday. Pt informed and agreeable with plan.
[2024-05-04 17:08] LABS: Bedside Glucose 104 mg/dL (74-106)
[2024-05-04] MEDS: Calcitriol 0.25 MCG Capsule 0.5 MCG PO (17:39)
[2024-05-04] MEDS: Acetaminophen 325 MG Tablet 650 MG PO (18:55)
--- NOTE | 2024-05-04 21:00 | CASEMGMT ---
Social Work This expert medical writer did call patient's [facility] Case cortney Coyle at [phone] and left message to call this expert medical writer. This expert medical writer spoke with Silvia from Crisis at [facility] who was calling to check in on patient. Patient's medical condition continues to be a barrier to inpatient mental health treatment. Crisis does remain available for consult if needed, though at this time no inpatient mental health treatment option available. Updated Silvia that patient is agreeable to short term SNF, so is currently looking at this option. Through discussion with Silvia, should patient receive dialysis treatments (more than one) while at the hospital and with some evidence of medical stabilization and adherence to treatment by patient, Crisis could reassess again if needed, for inpatient treatment. For further details of social work involvement this date, refer to documentation dated 05.04.24 at 1330. Plan: Short term SNF, pending choices * following for support and discharge planning. *For continuity of care, alert palliative care and [facility] bottle caser to discharge plan/destination *[facility]ris[facility] at [facility] also remains available should services be needed again during this hospital stay, or prior to discharge -RACHAEL Salas
[2024-05-04] MEDS: MELATONIN 3 MG TABLET PO (22:32)
[2024-05-04 23:36] LABS: Bedside Glucose 172 mg/dL (74-106)
[2024-05-05] VITALS (7 sets, daily range): BP systolic 142–173; BP diastolic 70–85; PULSE 67–75; RESP 15–18; TEMP 36.4–37.2; O2SAT 96–98
[2024-05-05] MEDS: Acetaminophen 325 MG Tablet 650 MG PO (03:44)
[2024-05-05] MEDS: Ondansetron 4 MG/2 ML Vial IV ×3 (03:47→21:39)
[2024-05-05] MEDS: oxyCODONE 5 MG Tablet PO (04:17)
[2024-05-05] MEDS: DiphenhydrAMINE 25 MG Capsule PO (04:18)
--- NOTE | 2024-05-05 04:55 | NURSING ---
PT REPORTS SHE IS ABLE TO TAKE OXYCODONE FOR PAIN. PT REPORTS SHE HAS SOB ALLERGY REACTION WITH THE OXYCONTIN. DR CABRERA MADE AWARE PT IS ASKING FOR AN ORDER FOR OXYCODONE
[2024-05-05 06:09] LABS: Hematocrit 25.1 % (37-47); Hemoglobin 7.7 g/dL (12.0-15.0); Mean Corp Hgb Conc 30.7 g/dL (32-36); Mean Corpuscular Hgb 28.8 pg (27.0-32.0); Mean Platelet Vol. 10.1 fl (6.2-12.0); Platelet Count 264 K/mm3 (150-450); RBC Distribution Width CV 14.6 % (11.6-14.6); RBC Distribution Width SD 49.1 fl (35.1-43.9); Red Blood Count 2.67 M/mm3 (4.2-5.4); White Blood Count 5.7 K/mm3 (4.4-11.0)
[2024-05-05 06:32] LABS: Anion Gap 9 (5-15); BUN 72 mg/dL (7-18); BUN/Creat Ratio 12.7 RATIO (10-20); Calcium,Total 7.8 mg/dL (8.5-10.1); Chloride 104 mmol/L (98-107); Creatinine, Serum 5.68 mg/dL (0.55-1.02); EST Glomerular Filtration Rate 8 mL/min (>60); Est Glom Filt Rate - Afr Amer 10 mL/min (>60); Estimated Creatinine Clearance 10.94 ml/min; Glucose 187 mg/dL (74-106); Sodium Level 137 mmol/L (136-145)
[2024-05-05 08:03] LABS: Hemoglobin A1c 7.6 % (3.8-5.6)
[2024-05-05] MEDS: Pantoprazole Sodium 40 MG Tablet PO (08:40)
[2024-05-05] MEDS: Calcium Acetate 667 MG Capsule PO ×2 (08:40→13:07)
[2024-05-05] MEDS: Carvedilol 25 MG Tablet PO ×2 (08:41→21:42)
[2024-05-05] MEDS: Folic Acid 1 MG Tablet PO (08:41)
[2024-05-05] MEDS: Nepro with Carbsteady 237 ML Liquid 120 ML PO (08:41)
[2024-05-05] MEDS: hydrALAZINE 50 MG Tablet PO ×3 (08:42→21:43)
[2024-05-05] MEDS: buPROPion (XL) 150 MG TABLET.XL PO (08:42)
[2024-05-05] MEDS: amLODIPine 5 MG Tablet PO (08:43)
[2024-05-05] MEDS: Atorvastatin Calcium 40 MG Tablet PO (08:43)
[2024-05-05] MEDS: Ferrous Sulfate 325 MG Tablet PO (08:44)
[2024-05-05] MEDS: Levothyroxine 25 MCG TABLET PO (08:44)
[2024-05-05] MEDS: Aspirin 81 MG TAB.CHEW PO (08:44)
[2024-05-05] MEDS: Insulin Lispro 100 UNIT/ML INSULN.PEN 8 UNIT SC (08:44)
[2024-05-05] MEDS: Insulin Lispro 100 UNIT/ML INSULN.PEN SC (08:48)
--- NOTE | 2024-05-05 10:18 | PN.HOSP_ITS ---
Reason for Visit Reason for Visit: Diagnoses End stage renal disease (05/04/24) Adult failure to thrive (05/04/24) Hyperglycemia, unspecified (05/04/24) Dependence on renal dialysis (05/04/24) Objective Data Objective Data Vital Signs: Vital Signs Temp Pulse Resp BP Pulse Ox O2 Del Method 98.2 F 73 15 170/85 H 98 Room Air 05/05/24 04:03 05/05/24 04:03 05/05/24 04:03 05/05/24 04:03 05/05/24 07:46 05/05/24 07:46 Oxygen Delivery Method Room Air Weight: 165 lb 5.547 oz Body Mass Index (BMI) 27.5 Intake & Output: Intake and Output for Last 24 Hours 05/03/24 05/04/24 05/05/24 23:59 23:59 23:59 Intake Total 100 / 100 Balance 100 / 100 Lab / Micro Data 05/05/24 05:38 05/05/24 05:38 Labs: Laboratory Results - last 24 hr 05/04/24 11:27: POC Glucose 304 H 05/04/24 16:49: POC Glucose 104 05/04/24 22:19: POC Glucose 172 H 05/05/24 05:38: WBC 5.7, RBC 2.67 L, Hgb 7.7 L, Hct 25.1 L, MCV 94.0, MCH 28.8, MCHC 30.7 L, RDW Std Deviation 49.1 H, RDW Coeff of Fior 14.6, Plt Count 264, MPV 10.1, Sodium 137, Potassium 4.0, Chloride 104, Carbon Dioxide 24.0, Anion Gap 9, BUN 72 H, Creatinine 5.68 H, Estim Creat Clear Calc 10.94, Est GFR (MDRD) Af Amer 10 L, Est GFR (MDRD) Non-Af 8 L, BUN/Creatinine Ratio 12.7, Glucose 187 H, Hemoglobin A1c 7.6 H, Calcium 7.8 L Physical Exam Narrative Seen and examined. Patient history issue could not be dialyzed because there was not good flow on the catheter. Blood pressure high 170/85, hydralazine dose increased. On discussion with the social science teacher. Patient cannot about take care of herself. Her house is in total disarray, unorganized and has restricted ADL. She has chronic ulcer in both feet, diabetic foot ulcer. Dialysis treatment Tuesday and Tuesday, Woo. 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 Physical exam General: Alert, Oriented x3, Cooperative, BMI 27.5 kg/m?. HEENT: Atraumatic, PERRLA, EOMI, Normocephalic Oral: Oral mucosa dry. No Gingival or Mucosal Lesions/ Ulcerations Neck: Supple, No JVD, Negative Carotid Bruits Chest wall/Lungs: Left chest tunneled dialysis catheter. No tenderness or redness around dialysis catheter. Air entry diminished in bilateral lung bases. No crepitation/rhonchi Cardiovascular: Regular rate, Regular Rhythm, Normal S1, Normal S2, systolic murmur present. Abdomen: Bowel Sounds Present, Soft, Non Tender, Non-Distended : No dysuria. No renal angle tenderness. No suprapubic tenderness. Extremities: No edema, Capillary Refill Less than 3 Seconds Skin: Chronic bilateral feet ulcer, diabetic for a long time. Musculoskeletal: No Tenderness to Palpation of Joints or Extremities, mild muscle atrophy of bilateral thigh and calf muscles. Neurological: Cranial nerves II-XII grossly intact, DTR 2+/4. No acute focal neurological deficit. Psych/Mental Status: Flat affect. Poor insight into her disease. Assessment & Plan Assessment/Plan (1) Adult failure to thrive: (2) Hyperglycemia: (3) ESRD (end stage renal disease) on dialysis: PLAN: Plan Patient is a 58-year-old female who presented [facility] ED on 05/04/2024 with adult failure to thrive. 1. Acute debility, unable to take care herself in adult failure to thrive ? Admit under inpatient status to [facility]. PT/OT/case management consulted. Patient with multiple significant medical comorbidities including ESRD on HD, recent history of subacute ischemic CVA and MSSA bacteremia secondary to permacath infection in December, history of chronic foot wounds with left foot osteomyelitis back in 2021. Lives at home alone and per family, has had significant difficulty taking care of herself at home. Patient was alert and oriented for me but has poor insight into her medical condition; family notably has concerned that she may lack decision-making capacity and her niece is apparently working on obtaining guardianship for her. Appreciate further therapy and social work recommendations. 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 2. ESRD on HD ? Nephrology consulted. On HD MWF, last session on 05/02. Dialysis arrangement Tuesday and Tuesday. Monitor daily BMP. 05/05: As per patient her dialysis catheter probably not working with normal blood flow. Let the auto top mechanic to be aware. 3. Type 2 diabetes mellitus with hyperglycemia ? Blood glucose over 600 on arrival to the ED, improved with insulin administration. Suspect patient was not taking her home insulin. Glucose 346-393. On Lantus 20 units subcut daily. Start on scheduled Humalog insulin 3 times daily AC. Accu-Chek before meals and at bedtime with Humalog sliding scale coverage and hypoglycemia protocol. 05/05: A1c 7.6 glucose 187. Reasonably well-controlled. 4. Concern for suicidal ideation ? Patient has history of anxiety/depression and has worsening functional status but denied suicidal ideation. She is not compliant with dialysis and at one time she talks about getting kidney transplant. I do not think she has insight to for multiple comorbidities. Discussed with the social science teacher. She is pink slipped. 5. Essential hypertension, not controlled: Blood pressure Is high 185/88, 170/85. Hydralazine dose increased to 50 mg 3 times daily. Chronic medical conditions: ? Anxiety/depression/chronic pain with neuropathy/RLS: Continue home meds. ? History of subacute ischemic CVA, carotid stenosis, CAD s/p stents, hypertension, hyperlipidemia: Unclear if patient on both aspirin and Plavix, will continue aspirin for now but hold Plavix. Continue other home medications. ? History of chronic foot wounds with prior history of left foot osteomyelitis: Follows with outpatient podiatry. Left foot wounds stable. ? History of MSSA bacteremia secondary to permacath infection ? Hypothyroidism: Continue home Synthroid. DVT prophylaxis: Heparin subcu CODE STATUS: Full code, verified Expected disposition: TBD Laboratory Results 05/04/24 11:27: POC Glucose 304 H 05/04/24 16:49: POC Glucose 104 05/04/24 22:19: POC Glucose 172 H 05/05/24 05:38: WBC 5.7, RBC 2.67 L, Hgb 7.7 L, Hct 25.1 L, MCV 94.0, MCH 28.8, MCHC 30.7 L, RDW Std Deviation 49.1 H, RDW Coeff of Fior 14.6, Plt Count 264, MPV 10.1, Sodium 137, Potassium 4.0, Chloride 104, Carbon Dioxide 24.0, Anion Gap 9, BUN 72 H, Creatinine 5.68 H, Estim Creat Clear Calc 10.94, Est GFR (MDRD) Af Amer 10 L, Est GFR (MDRD) Non-Af 8 L, BUN/Creatinine Ratio 12.7, Glucose 187 H, Hemoglobin A1c 7.6 H, Calcium 7.8 L Charges/Coding Visit Charges Inpatient E&M: 84392 Subs Hosp L2
[2024-05-05] MEDS: Insulin Glargine-YFGN 100 UNIT/ML Pen 20 UNIT SC (11:04)
[2024-05-05] MEDS: Heparin Injection (Vial) 5,000 UNIT/ML VIAL 5000 UNIT SC ×2 (11:05→21:42)
[2024-05-05] MEDS: Paroxetine 20 MG Tablet PO (11:05)
--- NOTE | 2024-05-05 12:19 | CASEMGMT ---
Social Work- SW met with pt who reports that she has not been able to eat; looking at food makes pt nauseous. Pt reports that when she has been able to eat small amounts, pt has been throwing up and unable to keep food down. Pt states that she has also been unable to keep food down at home as well. Pt questioned if this is d/t dialysis. Pt states that she is concerned about electric bill and electricity being turned off 05/11. SW reminded pt that we discussed this concern yesterday and that, because it's Tuesday, we will have to readdress this issue on Tuesday as [facility] is not open today. SW verified with pt that the plan is to d/c to SNF. Pt chose [facility], [facility], [facility], or any 5 star facility as choices. SW completed referrals in [facility]. SW spoke with bedside nurse in regards to nausea; nurse reports that pt ate all of her food on her tray and has not been throwing up to her knowledge. SW will remain available to follow. Pt reports that Trisha garcia is HCP[employer] primary agent, but does not answer her phone. ERIN Johnson
[2024-05-05 12:26] LABS: Bedside Glucose 114 mg/dL (74-106)
--- NOTE | 2024-05-05 12:32 | CASEMGMT ---
Social Work SW met with pt to discuss advance directives.? Pt confirms she has completed a living will and health care POA naming jose Rico.? Pt notified that documents are not on file at [facility] and SW requested they be brought in for scanning into the EMR.? ERIN Johnson
--- NOTE | 2024-05-05 12:42 | PCM.CONS.GEN ---
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 dressed wounds with betadine, adaptic, DSD and brando - keep intact maintain heel weightbearing in surgical shoes assisted by walker patient may require snf placement will follow closely (2) Non-pressure chronic 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 layer exposed: (3) Non-pressure chronic ulcer of other part of left foot with fat layer exposed: (4) Charcot's joint, right ankle and foot: (5) Charcot's joint, left ankle and foot: (6) Other acute osteomyelitis, right ankle and foot: (7) Other acute osteomyelitis, left ankle and foot: HPI Consult Data Date of Consult: 05/05/24 HPI Narrative HPI Narrative: DIONY ROCHA, is a 58 F who presents with bilateral plantar lateral midfoot wounds in setting of diabetic neuropathy and charcot foot. 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 Patient has been dealing with wounds for > 1month, but has previously ulcerated recurrently at these sites over the past two years. Patient is ESRD, but is awaiting AV fistula until definitive wound closure. Patient denies constitutionals. Patient denies pain. Recent A1c 7.6. [facility] Medical History (Updated 05/05/24 @ 12:[address] Gustavo Julian DPM) Charcot's joint, right ankle and foot Charcot's joint, left ankle and foot Non-pressure chronic 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 layer exposed Non-pressure chronic ulcer of other part of left foot with fat layer exposed Drowsiness Mental status, decreased Carotid artery stenosis MSSA bacteremia ESRD on hemodialysis Osteomyelitis Anemia in chronic illness Type 2 diabetes mellitus Foot osteomyelitis, left Chronic renal disease, stage 4, severely decreased glomerular filtration rate (GFR) between 15-29 mL/min/1.73 square meter Acute on chronic anemia Chronic ulcer of right foot with necrosis of bone Chronic kidney disease, stage 4 (severe) Diabetes mellitus with diabetic polyneuropathy Diabetic foot ulcers Chronic kidney disease, stage 3b Cellulitis Acute lumbar radiculopathy Essential hypertension Adult failure to thrive COVID-19 (08/28/21) Chronic ulcer of right leg with fat layer exposed Ulcer of left foot with fat layer exposed Chronic ulcer of right foot with fat layer exposed Hyperparathyroidism, secondary renal Iron deficiency anemia Bilateral edema of lower extremity Chronic foot pain Debility Charcot's joint of right foot Diabetes Non-smoker Myocardial infarct Hypertension TIA (transient ischemic attack) Amputation foot, bilat 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 Ulcer of left foot with necrosis of muscle Ulcer of left foot with muscle involvement without evidence of necrosis Anxiety and depression Diabetic infection of left foot Delayed wound healing Non-compliance Diabetic polyneuropathy Ischemic cardiomyopathy Obesity (BMI 30.0-34.9) Acquired varus deformity of left foot Acquired varus deformity of right foot Atherosclerosis of [place] coronary artery of [place] heart without angina pectoris Hemoglobin A1c greater than 9.0% NSTEMI (non-ST elevated myocardial infarction) (09/20/18) GERD (gastroesophageal reflux disease) HLD (hyperlipidemia) Back pain, chronic RLS (restless legs syndrome) Home Medications ?Medication ?Instructions ?Recorded ?Last Taken ?Type paroxetine HCl 20 mg tablet 20 mg PO DAILY DEPRESSION 07/07/21 04/07/22 History bupropion HCl 150 mg 24 hr tablet, 150 mg PO DAILY mood 02/04/22 04/07/22 History extended release sennosides 8.6 mg-docusate sodium 2 tab PO BID PRN PRN Constipation 04/24/22 Unknown Rx 50 mg tablet (Stool #0 tabs Softener-Stimulant Laxative) ascorbic acid (vitamin C) 500 mg 500 mg PO BID supplement 05/05/22 Unknown History tablet (Vitamin C) clopidogrel 75 mg tablet 75 mg PO DAILY prevent stroke 07/19/22 Unknown History ferrous sulfate 325 mg (65 mg 325 mg PO .three times a week 07/19/22 Unknown History iron) tablet anemia pantoprazole 40 mg tablet,delayed 40 mg PO BIDCM GERD 07/19/22 Unknown History release insulin glargine-yfgn 100 unit/mL 5 unit (0.05 mL) subcut QHS blood 07/21/22 Unknown Rx (3 mL) subcutaneous pen sugar #15 mL insulin lispro 100 unit/mL See Protocol subcut TIDAC #0 mL 07/21/22 Unknown Rx subcutaneous pen (Humalog KwikPen (U-100) Insulin) cyclobenzaprine 5 mg tablet 5 mg PO TID PRN muscle spasm #21 11/26/23 Unknown Rx tabs gabapentin 100 mg capsule 100 mg PO .COMPLEX PRN pain 11/26/23 Unknown History Mircera See Rx Instructions .Route 12/16/23 Unknown History .COMPLEX dialysis Venofer iron 12/16/23 Unknown History acetaminophen 325 mg capsule 325 mg PO Q4H PRN fever or pain 12/16/23 Unknown History amlodipine 5 mg tablet 5 mg PO DAILY bp 12/16/23 Unknown History antacid extra assorted fruit 750 mg PO .every 4 hours PRN tums 12/16/23 Unknown History tablets calcitriol 0.5 mcg capsule 0.5 mcg PO .COMPLEX on dialysis 12/16/23 Unknown History calcium acetate(phosphat bind) 667 676 mg PO TID is on dialysis 12/16/23 Unknown History mg capsule cloNIDine See Rx Instructions .Route 12/16/23 Unknown History .COMPLEX dialysis diphenhydramine 25 mg IV itching 12/16/23 Unknown History folic acid 800 mcg tablet 0.8 mg PO DAILY supplement 12/16/23 Unknown History hydralazine 25 mg tablet 25 mg PO TID bp 12/16/23 Unknown History insulin aspart U-100 6 unit subcut TID blood glucose 12/16/23 Unknown History insulin aspart U-100 100 unit/mL subcut 12/16/23 Unknown History (3 mL) subcutaneous pen insulin glargine 100 unit/mL (3 20 unit subcut DAILY blood glucose 12/16/23 Unknown History mL) subcutaneous pen (Lantus Solostar U-100 Insulin) isosorbide dinitrate 10 mg tablet 20 mg PO TID bp and heart 12/16/23 Unknown History levothyroxine 25 mcg tablet 25 mcg PO DAILY thyroid 12/16/23 Unknown History lidocaine-silicone, adhesive topical pain 12/16/23 Unknown History loperamide 2 mg capsule 2 mg PO Q4H PRN loose stool 12/16/23 Unknown History (Anti-Diarrheal (loperamide)) melatonin 5 mg capsule 5 mg PO .bedtime sleep 12/16/23 Unknown History nitroglycerin 0.4 mg sublingual 0.4 mg sublingual Q5M chest pain 12/16/23 Unknown History tablet (Nitrostat) olanzapine 5 mg tablet 5 mg PO QHS sleep 12/16/23 Unknown History ondansetron 4 mg disintegrating 4 mg PO DAILY PRN nausea and 12/16/23 Unknown History tablet vomiting pramipexole dihydrochloride 1.5 mg PO BID unknown 12/16/23 Unknown History promethazine 25 mg tablet 25 mg PO Q4H PRN nausea and 12/16/23 Unknown History vomiting aspirin 81 mg capsule 81 mg PO DAILY #30 caps 12/26/23 Unknown Rx cefepime 1 gram/50 mL in dextrose 1 g IV .as directed 12/26/23 Unknown Rx 5 % intravenous piggyback atorvastatin 40 mg tablet 40 mg PO DAILY 03/18/24 Unknown History buprenorphine 5 mcg/hour weekly 1 patch topical QWEEK 03/18/24 Unknown History transdermal patch carvedilol 25 mg tablet 25 mg PO BID 03/18/24 Unknown History clindamycin HCl 150 mg capsule 450 mg (3 x 150 mg) PO TID 7 days 04/19/24 Unknown Rx #63 CAPSULES clindamycin HCl 150 mg capsule 450 mg (3 x 150 mg) PO TID 10 days 04/25/24 Unknown Rx #90 caps Allergy/AdvReac Type Severity Reaction Status Date / Time oxycodone (From OxyContin) Allergy sob Verified 05/05/24 04:11 Penicillins Allergy swelling Verified 04/25/24 18:14 in throat vancomycin Allergy Itching Verified 04/25/24 18:14 metronidazole AdvReac Nausea Verified 04/25/24 18:14 Family History Mother Diabetes CVA (cerebral vascular accident) Brother CAD (coronary artery disease) CABG X 3 Cancer testicular Diabetes Brother CAD (coronary artery disease) CABG X3 Diabetes Brother CAD (coronary artery disease) Stents Diabetes Sister CAD (coronary artery disease) CABG x 3 CVA (cerebral vascular accident) Diabetes Surgical History History of History of foot surgery History of bilateral carpal tunnel release History of rotator cuff surgery History of coronary artery stent placement (12/31/20) Social History household members: none number of children: 2 current occupational status: disabled Smoking Status: Never smoker alcohol intake: never substance use type: does not use caffeine: Yes Type: carbonated beverages Number of servings: 2 ROS Constitutional Constitutional: Reports daytime sleepiness; Denies change in weight or headache(s) Eyes Eyes: Denies acute decrease in peripheral vision, change in eye color or discongugate gaze ENT HEENT: Denies bleeding gums, change in voice or epistaxis Cardiovascular Cardiovascular: Denies abdominal edema, abdominal pain or chest pain at rest Respiratory/Chest Respiratory/Chest: Denies change in phlegm color, chest congestion or dyspnea Gastrointestinal Gastrointestinal: Denies belching, bloating or constipation Physical Exam Narrative Vascular: DP and PT pulses palpable 2/4 bilaterally. CFT brisk to toes. Atrophic skin and absent digital hairgrowth noted to bilateral feet. Neurologic: light touch and protective sensation completely absent to bilateral feet and lower extremities. Dermatologic: Full thickness wounds down to subcutaneous tissue noted to bilateral plantar lateral midfoot with moderate drainage. No other acute signs of infection. No deep probing or undermining. Musculoskeletal: Plantar lateral convexity to bilateral feet at level of CC and 5th TMTJ contributing to wound formation. Const alert and oriented x3 Lab / Micro Data 05/05/24 05:38 05/05/24 05:38 Labs: Laboratory Results - last 24 hr 05/04/24 16:49: POC Glucose 104 05/04/24 22:19: POC Glucose 172 H 05/05/24 05:38: WBC 5.7, RBC 2.67 L, Hgb 7.7 L, Hct 25.1 L, MCV 94.0, MCH 28.8, MCHC 30.7 L, RDW Std Deviation 49.1 H, RDW Coeff of Fior 14.6, Plt Count 264, MPV 10.1, Sodium 137, Potassium 4.0, Chloride 104, Carbon Dioxide 24.0, Anion Gap 9, BUN 72 H, Creatinine 5.68 H, Estim Creat Clear Calc 10.94, Est GFR (MDRD) Af Amer 10 L, Est GFR (MDRD) Non-Af 8 L, BUN/Creatinine Ratio 12.7, Glucose 187 H, Hemoglobin A1c 7.6 H, Calcium 7.8 L 05/05/24 12:07: POC Glucose 114 H
[2024-05-05] MEDS: 0.9% Saline Lock 10 ML Syringe IV ×2 (13:06→21:39)
[2024-05-05 18:21] LABS: Bedside Glucose 105 mg/dL (74-106)
[2024-05-05 22:22] LABS: Bedside Glucose 70 mg/dL (74-106)
[2024-05-06] VITALS (9 sets, daily range): BP systolic 129–166; BP diastolic 63–79; PULSE 71–81; RESP 16–18; TEMP 36.6–37.1; O2SAT 93–100
[2024-05-06 00:10] LABS: Bedside Glucose 148 mg/dL (74-106)
[2024-05-06] MEDS: MELATONIN 3 MG TABLET PO ×2 (00:48→21:42)
[2024-05-06] MEDS: oxyCODONE 5 MG Tablet PO ×2 (01:53→18:38)
[2024-05-06] MEDS: Levothyroxine 25 MCG TABLET PO (05:16)
[2024-05-06] MEDS: hydrALAZINE 50 MG Tablet PO ×3 (05:16→21:20)
[2024-05-06] MEDS: Ondansetron 4 MG/2 ML Vial IV ×3 (05:22→23:58)
[2024-05-06] MEDS: 0.9% Saline Lock 10 ML Syringe IV (05:23)
[2024-05-06] MEDS: DiphenhydrAMINE 50 MG/ML Syringe 25 MG IV (05:28)
[2024-05-06] MEDS: Insulin Lispro 100 UNIT/ML INSULN.PEN SC ×2 (06:36→21:29)
[2024-05-06 06:59] LABS: Bedside Glucose 156 mg/dL (74-106)
[2024-05-06] MEDS: Nepro with Carbsteady 237 ML Liquid 120 ML PO ×2 (08:22→12:58)
[2024-05-06] MEDS: Folic Acid 1 MG Tablet PO (08:23)
[2024-05-06] MEDS: Calcium Acetate 667 MG Capsule PO ×3 (08:23→16:55)
[2024-05-06] MEDS: Pantoprazole Sodium 40 MG Tablet PO (08:26)
[2024-05-06] MEDS: Paroxetine 20 MG Tablet PO (08:27)
[2024-05-06] MEDS: Carvedilol 25 MG Tablet PO ×2 (08:27→21:19)
[2024-05-06] MEDS: amLODIPine 5 MG Tablet PO (08:27)
[2024-05-06] MEDS: buPROPion (XL) 150 MG TABLET.XL PO (08:28)
[2024-05-06] MEDS: Atorvastatin Calcium 40 MG Tablet PO (08:32)
--- NOTE | 2024-05-06 11:05 | PCM.PN.REN ---
Subjective Subjective No new complaints today Objective Data Objective Data Vital Signs: Vital Signs Temp Pulse Resp BP Pulse Ox O2 Del Method 98 F 81 16 130/73 H 93 Room Air 05/06/24 04:57 05/06/24 05:16 05/06/24 04:57 05/06/24 04:57 05/06/24 06:55 05/06/24 06:55 Oxygen Delivery Method Room Air Weight: 75 kg Body Mass Index (BMI) 27.5 Intake & Output: Intake and Output for Last 24 Hours 05/04/24 05/05/24 05/06/24 23:59 23:59 23:59 Intake Total 1100 / 1100 Balance 1100 / 1100 Lab / Micro Data 05/05/24 05:38 05/05/24 05:38 Labs: Laboratory Results - last 24 hr 05/05/24 12:07: POC Glucose 114 H 05/05/24 17:51: POC Glucose 105 05/05/24 21:31: POC Glucose 70 L 05/05/24 23:43: POC Glucose 148 H 05/06/24 06:34: POC Glucose 156 H Physical Exam Narrative Alert awake oriented x 3 no obvious distress no pallor no icterus no JVD s1s2 no murmurs lungs clear abdomen soft no organomegaly Lower extremities are bandaged no cyanosis Assessment & Plan Assessment/Plan (1) ESRD (end stage renal disease) on dialysis: PLAN: On hemodialysis, Tuesday, Tuesday, Tuesday. On Tuesday we could not do dialysis due to catheter dysfunction. This is despite using tPA. Lately placement. Surgery on consult. Hopefully replacement tomorrow. Will plan for dialysis after. Patient is also on schedule for surgery with podiatry tomorrow potentially. Depending on the labs including potassium tomorrow morning, we will work around her schedule. Anemia. Hemoglobin dropped to 7.7. Denies any obvious bleeding. Transfuse if hemoglobin less than 7. Otherwise management as per primary. Access. IJ tunneled dialysis catheter. Will be replaced this admission. She sees vascular surgery patient out of [place]. was on schedule for AV fistula placement this month but that was deferred due to her lower extremity open wound.
--- NOTE | 2024-05-06 11:26 | PCM.PN.HOSP ---
Reason for Visit Reason for Visit: Diagnoses Type 2 diabetes mellitus with diabetic polyneuropathy (05/04/24) Non-pressure chronic 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 layer exposed (05/04/24) Non-pressure chronic ulcer of other part of left foot with fat layer exposed (05/04/24) Charcot's joint, right ankle and foot (05/04/24) Charcot's joint, left ankle and foot (05/04/24) Other acute osteomyelitis, right ankle and foot (05/04/24) Other acute osteomyelitis, left ankle and foot (05/04/24) End stage renal disease (05/04/24) Adult failure to thrive (05/04/24) Hyperglycemia, unspecified (05/04/24) 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 I also talked with general surgery-it is planned that the patient will have a tunneled dialysis catheter placed tomorrow, the present one is not working properly Objective Data Objective Data Vital Signs: Vital Signs Temp Pulse Resp BP Pulse Ox O2 Del Method 98 F 81 16 130/73 H 93 Room Air 05/06/24 04:57 05/06/24 05:16 05/06/24 04:57 05/06/24 04:57 05/06/24 06:55 05/06/24 06:55 Oxygen Delivery Method Room Air Weight: 75 kg Body Mass Index (BMI) 27.5 Intake & Output: Intake and Output for Last 24 Hours 05/04/24 05/05/24 05/06/24 23:59 23:59 23:59 Intake Total 1100 / 1100 Balance 1100 / 1100 Lab / Micro Data 05/05/24 05:38 05/05/24 05:38 Labs: Laboratory Results - last 24 hr 05/05/24 12:07: POC Glucose 114 H 05/05/24 17:51: POC Glucose 105 05/05/24 21:31: POC Glucose 70 L 05/05/24 23:43: POC Glucose 148 H 05/06/24 06:34: POC Glucose 156 H Physical Exam Const alert, oriented x3, no apparent distress, average body habitus and healthy appearing General Appearance: cooperative, well kempt and well developed Orientation / Consciousness: awake, oriented to person, oriented to place and oriented to time HEENT normocephalic and moist oral mucous membranes Eyes PERRL, EOMs intact bilaterally and conjunctivae normal Neck supple, no JVD, thyroid normal and no carotid bruits General: trachea midline Resp normal respiratory effort, no retractions, no use of accessory muscles and clear to auscultation bilaterally Auscultation: Negative for rales, rhonchi or wheezes Cardio regular rate, regular rhythm, S1 normal heart sound, S2 normal heart sound, no murmurs, no rub and no gallops GI normal to inspection, nondistended, normoactive bowel sounds, soft to palpation, non-tender and non-distended Extremity no clubbing, cyanosis or edema Skin no rashes or lesions noted General Skin Exam: no breakdown Neuro oriented x3, CN's II-XII intact bilaterally, moves all extremities, no focal motor deficits and no sensory deficits noted Sensorium / Orientation: awake and alert Speech: speech normal Psych affect normal Assessment & Plan Assessment/Plan (1) Debility: PLAN: Plan 1. Debility-patient will continue to be seen by PT and OT, she will most likely need placement in a nursing home facility at least for short-term skilled services. #2 end-stage renal disease requiring dialysis-patient's tunneled dialysis catheter will be replaced tomorrow by general surgery #3 type 2 ghuhheyr-Gjlp-Cdkbg will be performed, sliding scale insulin will be administered as needed, patient is on scheduled long-acting and short acting insulin. #4 essential hypertension-patient's blood pressure will be monitored and her medications will be adjusted as needed #5 srid-[id number]-lxfjrzvp unclear, again patient will need to go to an extended care facility at least for short-term skilled services. #6 anemia of chronic renal disease-patient's labs will be monitored, she does not require transfusion at this time Total clinical time spent by myself addressing the patient's medical issues, reviewing all of her data, and collaborating with patient's care team: 35 minutes Charges/Coding Visit Charges Inpatient E&M: 90988 Subs Hosp L2
[2024-05-06 12:38] LABS: Bedside Glucose 140 mg/dL (74-106)
[2024-05-06 15:06] LABS: Bedside Glucose 42 mg/dL (74-106)
[2024-05-06 15:06] LABS: Bedside Glucose 41 mg/dL (74-106)
[2024-05-06 15:06] LABS: Bedside Glucose 73 mg/dL (74-106)
[2024-05-06 17:25] LABS: Bedside Glucose 123 mg/dL (74-106)
[2024-05-06] MEDS: DiphenhydrAMINE 25 MG Capsule PO ×2 (17:47→23:55)
[2024-05-06] MEDS: Heparin Injection (Vial) 5,000 UNIT/ML VIAL 5000 UNIT SC (21:20)
[2024-05-06 22:38] LABS: Bedside Glucose 173 mg/dL (74-106)
[2024-05-07] VITALS (15 sets, daily range): BP systolic 122–283; BP diastolic 56–91; PULSE 64–77; RESP 14–18; TEMP 36.3–36.7; O2SAT 94–98; BMI 27.5; BMI 26.7
[2024-05-07] MEDS: 0.9% Saline Lock 10 ML Syringe IV (00:03)
[2024-05-07 00:34] LABS: Bedside Glucose 102 mg/dL (74-106)
[2024-05-07 04:34] LABS: Hematocrit 26.2 % (37-47); Hemoglobin 8.2 g/dL (12.0-15.0); Mean Corp Hgb Conc 31.3 g/dL (32-36); Mean Corpuscular Hgb 29.5 pg (27.0-32.0); Mean Corpuscular Volume 94.2 fL (81-99); Platelet Count 263 K/mm3 (150-450); RBC Distribution Width CV 15.2 % (11.6-14.6); RBC Distribution Width SD 50.5 fl (35.1-43.9); Red Blood Count 2.78 M/mm3 (4.2-5.4); White Blood Count 6.5 K/mm3 (4.4-11.0)
[2024-05-07] MEDS: oxyCODONE 5 MG Tablet PO ×2 (04:34→20:28)
[2024-05-07 04:44] LABS: International Normalized Ratio 1.1; Prothrombin Time (Protime)PT. 13.7 SECONDS (11.7-14.9)
[2024-05-07 04:45] LABS: Partial Thromboplast Time 35.7 Seconds (24.1-36.2)
[2024-05-07 04:59] LABS: Anion Gap 7 (5-15); BUN 81 mg/dL (7-18); BUN/Creat Ratio 11.4 RATIO (10-20); Calcium,Total 8.2 mg/dL (8.5-10.1); Chloride 103 mmol/L (98-107); Creatinine, Serum 7.09 mg/dL (0.55-1.02); EST Glomerular Filtration Rate 6 mL/min (>60); Est Glom Filt Rate - Afr Amer 8 mL/min (>60); Estimated Creatinine Clearance 8.77 ml/min; Glucose 119 mg/dL (74-106); Sodium Level 135 mmol/L (136-145)
[2024-05-07 06:40] LABS: Bedside Glucose 104 mg/dL (74-106)
--- NOTE | 2024-05-07 08:44 | PN.SURG_ITS ---
Subjective Subjective Patient is evaluated resting comfortably in bed. She is scheduled to have dialysis this morning. She notes being scheduled for a fistula creation in [place], however she has some type of infection in her feet and will need to have that cleared prior to proceeding with surgery. She denies any pain at the catheter site. Objective Data Objective Data Vital Signs: Vital Signs Temp Pulse Resp BP Pulse Ox O2 Del Method 97.5 F L 65 16 144/69 H 94 Room Air 05/07/24 08:03 05/07/24 08:03 05/07/24 08:03 05/07/24 08:03 05/07/24 08:03 05/07/24 08:03 Oxygen Delivery Method Room Air Weight: 165 lb 5.547 oz Body Mass Index (BMI) 27.5 Intake & Output: Intake and Output for Last 24 Hours 05/05/24 05/06/24 05/07/24 23:59 23:59 23:59 Intake Total 1100 / 1100 1050 / 1050 Balance 1100 / 1100 1050 / 1050 Lab / Micro Data 05/07/24 04:10 05/07/24 04:10 Labs: Laboratory Results - last 24 hr 05/05/24 16:15: POC Glucose 41 L* 05/05/24 16:24: POC Glucose 42 L* 05/05/24 16:32: POC Glucose 73 L 05/06/24 12:16: POC Glucose 140 H 05/06/24 16:54: POC Glucose 123 H 05/06/24 21:28: POC Glucose 173 H 05/07/24 00:00: POC Glucose 102 05/07/24 04:10: WBC 6.5, RBC 2.78 L, Hgb 8.2 L, Hct 26.2 L, MCV 94.2, MCH 29.5, MCHC 31.3 L, RDW Std Deviation 50.5 H, RDW Coeff of Fior 15.2 H, Plt Count 263, MPV 10.0, PT 13.7, INR 1.1, APTT 35.7, Sodium 135 L, Potassium 5.0, Chloride 103, Carbon Dioxide 25.0, Anion Gap 7, BUN 81 H, Creatinine 7.09 H, Estim Creat Clear Calc 8.77, Est GFR (MDRD) Af Amer 8 L, Est GFR (MDRD) Non-Af 6 L, BUN/Creatinine Ratio 11.4, Glucose 119 H, Calcium 8.2 L 05/07/24 06:22: POC Glucose 104 Physical Exam Chest Chest Narrative: Left chest catheter- intact Assessment & Plan Assessment/Plan (1) ESRD (end stage renal disease) on dialysis: PLAN: I am following this patient in conjunction with Dr. Mcallister. She will independently evaluate this patient. Discussed treatment plan with Franklin from dialysis. He will attempt to dialyze the patient this morning. If dialysis is successful, Dr. Mcallister will not proceed with catheter exchange. If the catheter is not functioning, Dr. Mcallister will plan to place a right chest catheter and removal of the left chest or exchange of the left chest catheter. Catheter exchange is scheduled for this afternoon. Charges/Coding Visit Charges Inpatient E&M: 48186 [facility] Hosp L1
[2024-05-07] MEDS: 0.9% Normal Saline 1,000 ML IV.SOLN. 1000 ML OPERA.SITE (08:59)
[2024-05-07] MEDS: PureFlow B 2K Dialysis Soln 1 BAG 6 BAG PF (08:59)
[2024-05-07 11:02] LABS: Bedside Glucose 109 mg/dL (74-106)
--- NOTE | 2024-05-07 11:13 | ART_ITS ---
Reason For Study: BLE FOOT WOUND Procedure A bilateral lower extremity continuous wave Doppler with analog waveform analysis and ankle brachial indexes. Left Segmental Pressures Left posterior tibial artery = 207mmHg. Left dorsalis pedis artery = 213mmHg. Left digit = 154 mmHg. The left posterior tibial artery waveforms are triphasic. The left dorsalis pedis waveforms are biphasic. Right Segmental Pressures Right brachial= 189mmHg. Right posterior tibial artery = 225mmHg. Right dorsalis pedis artery = 215mmHg. Right digit = 135 mmHg. The right posterior tibial artery waveforms are triphasic. The right dorsalis pedis waveforms are biphasic. Indices The right ankle brachial index by the posterior tibial artery is 1.19. The right ankle brachial index by the dorsalis pedis is 1.14. The right digital-brachial index is 0.71. The left ankle brachial index by the posterior tibial artery is 1.10. The left ankle brachial index by the dorsalis pedis is 1.13. The left digital-brachial index is 0.81. VL/Ankle Brachial Index Interpretation Summary Right RALPH 1.19, normal. Doppler/PVR waveforms of the right leg normal at rest.T BI diminished, pedal/digit disease vs spasm Left RALPH 1.13, normal. TBI and Doppler/PVR waveforms of the left leg normal at rest. Ordering Physician: Gustavo Julian Referring Physician: MD Jeaneth Raúl Performed By: Gene Tyson, RVT
[2024-05-07] MEDS: Heparin 10,000 UNITS/10 ML Vial IV (11:55)
[2024-05-07] MEDS: DiphenhydrAMINE 25 MG Capsule PO ×2 (13:36→19:59)
[2024-05-07] MEDS: Carvedilol 25 MG Tablet PO ×2 (13:37→22:57)
[2024-05-07] MEDS: Folic Acid 1 MG Tablet PO (13:37)
[2024-05-07] MEDS: amLODIPine 5 MG Tablet PO (13:39)
[2024-05-07] MEDS: Atorvastatin Calcium 40 MG Tablet PO (13:39)
[2024-05-07] MEDS: Paroxetine 20 MG Tablet PO (13:40)
[2024-05-07] MEDS: buPROPion (XL) 150 MG TABLET.XL PO (13:41)
[2024-05-07] MEDS: Pantoprazole Sodium 40 MG Tablet PO (13:41)
[2024-05-07] MEDS: Calcium Acetate 667 MG Capsule PO ×2 (13:42→17:09)
[2024-05-07] MEDS: hydrALAZINE 50 MG Tablet PO ×2 (13:43→22:57)
[2024-05-07] MEDS: LORazepam 0.5 MG Tablet PO (13:47)
[2024-05-07] MEDS: Nepro with Carbsteady 237 ML Liquid 120 ML PO ×2 (13:53→17:09)
--- NOTE | 2024-05-07 16:34 | PN.HOSP_ITS ---
Reason for Visit Reason for Visit: Diagnoses Type 2 diabetes mellitus with diabetic polyneuropathy (05/04/24) Non-pressure chronic 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 layer exposed (05/04/24) Non-pressure chronic ulcer of other part of left foot with fat layer exposed (05/04/24) Charcot's joint, right ankle and foot (05/04/24) Charcot's joint, left ankle and foot (05/04/24) Other acute osteomyelitis, right ankle and foot (05/04/24) Other acute osteomyelitis, left ankle and foot (05/04/24) End stage renal disease (05/04/24) Other malaise (05/04/24) Adult failure to thrive (05/04/24) Hyperglycemia, unspecified (05/04/24) 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 I got a text from podiatry stating they could not get OR time until of this week to do her foot surgery. Objective Data Objective Data Vital Signs: Vital Signs Temp Pulse Resp BP Pulse Ox O2 Del Method 97.5 F L 68 14 151/63 H 97 Room Air 05/07/24 08:03 05/07/24 13:43 05/07/24 12:19 05/07/24 12:19 05/07/24 08:34 05/07/24 12:19 Oxygen Delivery Method Room Air Weight: 72.9 kg Body Mass Index (BMI) 26.7 Intake & Output: Intake and Output for Last 24 Hours 05/05/24 05/06/24 05/07/24 23:59 23:59 23:59 Intake Total 1100 / 1100 1050 / 1050 Output Total 2900 / 2900 Balance 1100 / 1100 1050 / 1050 -2900 / -2900 Lab / Micro Data 05/07/24 04:10 05/07/24 04:10 Labs: Laboratory Results - last 24 hr 05/06/24 16:54: POC Glucose 123 H 05/06/24 21:28: POC Glucose 173 H 05/07/24 00:00: POC Glucose 102 05/07/24 04:10: WBC 6.5, RBC 2.78 L, Hgb 8.2 L, Hct 26.2 L, MCV 94.2, MCH 29.5, MCHC 31.3 L, RDW Std Deviation 50.5 H, RDW Coeff of Fior 15.2 H, Plt Count 263, MPV 10.0, PT 13.7, INR 1.1, APTT 35.7, Sodium 135 L, Potassium 5.0, Chloride 103, Carbon Dioxide 25.0, Anion Gap 7, BUN 81 H, Creatinine 7.09 H, Estim Creat Clear Calc 8.77, Est GFR (MDRD) Af Amer 8 L, Est GFR (MDRD) Non-Af 6 L, BUN/Creatinine Ratio 11.4, Glucose 119 H, Calcium 8.2 L 05/07/24 06:22: POC Glucose 104 05/07/24 10:38: POC Glucose 109 H Radiography Diagnostic Testing: Radiology Impression Vessel Mapping-Hemodialysis Access 05/04/24 12:04 Interpretation Summary Right upper extremity arteries patent with normal waveforms and measurements above. Right upper extremity veins patent with measurements above. Ordering Physician: Angel Joel Referring Physician: MD Jeaneth Raúl Performed By: Gene Tyson, RVT ??? Physical Exam Narrative alert, oriented x3, no apparent distress, average body habitus and healthy appearing General Appearance: cooperative, well kempt and well developed Orientation / Consciousness: awake, oriented to person, oriented to place and oriented to time HEENT normocephalic and moist oral mucous membranes Eyes PERRL, EOMs intact bilaterally and conjunctivae normal Neck supple, no JVD, thyroid normal and no carotid bruits General: trachea midline Resp normal respiratory effort, no retractions, no use of accessory muscles and clear to auscultation bilaterally Auscultation: Negative for rales, rhonchi or wheezes Cardio regular rate, regular rhythm, S1 normal heart sound, S2 normal heart sound, no murmurs, no rub and no gallops GI normal to inspection, nondistended, normoactive bowel sounds, soft to palpation, non-tender and non-distended Extremity no clubbing, cyanosis or edema Skin no rashes or lesions noted General Skin Exam: no breakdown Neuro oriented x3, CN's II-XII intact bilaterally, moves all extremities, no focal motor deficits and no sensory deficits noted Sensorium / Orientation: awake and alert Speech: speech normal Psych affect normal Assessment & Plan Assessment/Plan (1) Debility: PLAN: Plan 1. Debility-patient will continue to be seen by PT and OT, she will most likely need placement in a [facility] facility at least for short-term skilled services. #2 end-stage renal disease requiring dialysis-nephrology is participating in her care, she will be undergoing dialysis 3 times a week while she is in the hospital #3 type 2 dapuwmau-Qspk-Sfqyf will be performed, sliding scale insulin will be administered as needed, patient is on scheduled long-acting and short acting insulin. #4 essential hypertension-patient's blood pressure will be monitored and her medications will be adjusted as needed #5 zcwz-bivahfg-uuwoyhfy unclear, again patient will need to go to an extended care facility at least for short-term skilled services. 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
--- NOTE | 2024-05-07 16:50 | CASEMGMT ---
Social Work- SW met with pt to advise that [facility] cannot accommodate dialysis in [place]. Pt selected [facility] as FOC. SW completed refferal via [employer]. ERIN Johnson
[2024-05-07 16:51] LABS: Bedside Glucose 189 mg/dL (74-106)
[2024-05-07] MEDS: Calcitriol 0.25 MCG Capsule 0.5 MCG PO (17:09)
[2024-05-07] MEDS: Insulin Lispro 100 UNIT/ML INSULN.PEN SC ×2 (17:10→22:58)
--- NOTE | 2024-05-07 19:12 | PCM.PN.REN ---
Subjective Subjective no new complaints Objective Data Objective Data Vital Signs: Vital Signs Temp Pulse Resp BP Pulse Ox O2 Del Method 97.5 F L 68 14 151/63 H 97 Room Air 05/07/24 08:03 05/07/24 13:43 05/07/24 12:19 05/07/24 12:19 05/07/24 08:34 05/07/24 12:19 Oxygen Delivery Method Room Air Weight: 72.9 kg Body Mass Index (BMI) 26.7 Intake & Output: Intake and Output for Last 24 Hours 05/05/24 05/06/24 05/07/24 23:59 23:59 23:59 Intake Total 1100 / 1100 1050 / 1050 Output Total 2900 / 2900 Balance 1100 / 1100 1050 / 1050 -2900 / -2900 Lab / Micro Data 05/07/24 04:10 05/07/24 04:10 Labs: Laboratory Results - last 24 hr 05/06/24 21:28: POC Glucose 173 H 05/07/24 00:00: POC Glucose 102 05/07/24 04:10: WBC 6.5, RBC 2.78 L, Hgb 8.2 L, Hct 26.2 L, MCV 94.2, MCH 29.5, MCHC 31.3 L, RDW Std Deviation 50.5 H, RDW Coeff of Fior 15.2 H, Plt Count 263, MPV 10.0, PT 13.7, INR 1.1, APTT 35.7, Sodium 135 L, Potassium 5.0, Chloride 103, Carbon Dioxide 25.0, Anion Gap 7, BUN 81 H, Creatinine 7.09 H, Estim Creat Clear Calc 8.77, Est GFR (MDRD) Af Amer 8 L, Est GFR (MDRD) Non-Af 6 L, BUN/Creatinine Ratio 11.4, Glucose 119 H, Calcium 8.2 L 05/07/24 06:22: POC Glucose 104 05/07/24 10:38: POC Glucose 109 H 05/07/24 16:24: POC Glucose 189 H Radiography Diagnostic Testing: Radiology Impression Vessel Mapping-Hemodialysis Access 05/04/24 12:04 Interpretation Summary Right upper extremity arteries patent with normal waveforms and measurements above. Right upper extremity veins patent with measurements above. Ordering Physician: Angel Joel Referring Physician: MD Jeaneth Raúl Performed By: Gene Tyson, RVT ??? Physical Exam Narrative Alert awake oriented x 3 no obvious distress no pallor no icterus no JVD s1s2 no murmurs lungs clear abdomen soft no organomegaly Lower extremities are bandaged no cyanosis Assessment & Plan Assessment/Plan (1) ESRD (end stage renal disease) on dialysis: PLAN: On hemodialysis, Tuesday, Tuesday, Tuesday. On Tuesday we could not do dialysis due to catheter dysfunction. used today. no issues. Anemia. stable Access. IJ tunneled dialysis catheter. HD today. see orders. tolerated well
[2024-05-07] MEDS: Gabapentin 100 MG Capsule PO (20:28)
[2024-05-07] MEDS: Heparin Injection (Vial) 5,000 UNIT/ML VIAL 5000 UNIT SC (22:57)
[2024-05-07 23:42] LABS: Bedside Glucose 273 mg/dL (74-106)
[2024-05-08] VITALS (8 sets, daily range): BP systolic 119–154; BP diastolic 52–68; PULSE 72–78; RESP 16–18; TEMP 36.4–36.9; O2SAT 96–98
[2024-05-08] MEDS: DiphenhydrAMINE 25 MG Capsule PO (04:08)
[2024-05-08 06:52] LABS: Bedside Glucose 117 mg/dL (74-106)
[2024-05-08] MEDS: Calcium Acetate 667 MG Capsule PO ×3 (09:17→16:55)
[2024-05-08] MEDS: Paroxetine 20 MG Tablet PO (09:17)
[2024-05-08] MEDS: 0.9% Saline Lock 10 ML Syringe IV ×2 (09:17→11:41)
[2024-05-08] MEDS: Ferrous Sulfate 325 MG Tablet PO (09:18)
[2024-05-08] MEDS: buPROPion (XL) 150 MG TABLET.XL PO (09:18)
[2024-05-08] MEDS: Carvedilol 25 MG Tablet PO ×2 (09:18→22:02)
[2024-05-08] MEDS: Pantoprazole Sodium 40 MG Tablet PO (09:18)
[2024-05-08] MEDS: Folic Acid 1 MG Tablet PO (09:18)
[2024-05-08] MEDS: Atorvastatin Calcium 40 MG Tablet PO (09:18)
[2024-05-08] MEDS: Heparin Injection (Vial) 5,000 UNIT/ML VIAL 5000 UNIT SC ×2 (09:19→22:02)
[2024-05-08] MEDS: amLODIPine 5 MG Tablet PO (09:19)
--- NOTE | 2024-05-08 11:40 | CASEMGMT ---
Addendum entered by Georgia Williamson 05/08/24 12:36: Social Work- [facility] declined referral. ERIN Johnson Addendum entered by Georgia Williamson 05/08/24 11:46: SW reached out to [facility] to clarify declination. Pt updated on referral status. Referrral to [facility] completed. ERIN Johnson Original Note: Social Work- SW received notification that [facility] will not accept pt referral. ERIN Johnson
[2024-05-08] MEDS: Ondansetron 4 MG/2 ML Vial IV (11:41)
[2024-05-08 11:53] LABS: Bedside Glucose 215 mg/dL (74-106)
[2024-05-08] MEDS: Insulin Lispro 100 UNIT/ML INSULN.PEN SC ×3 (12:31→22:05)
--- NOTE | 2024-05-08 13:14 | PN.HOSP_ITS ---
Reason for Visit Reason for Visit: Diagnoses Type 2 diabetes mellitus with diabetic polyneuropathy (05/04/24) Non-pressure chronic 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 layer exposed (05/04/24) Non-pressure chronic ulcer of other part of left foot with fat layer exposed (05/04/24) Charcot's joint, right ankle and foot (05/04/24) Charcot's joint, left ankle and foot (05/04/24) Other acute osteomyelitis, right ankle and foot (05/04/24) Other acute osteomyelitis, left ankle and foot (05/04/24) End stage renal disease (05/04/24) Other malaise (05/04/24) Adult failure to thrive (05/04/24) Hyperglycemia, unspecified (05/04/24) 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 We are still in the process of finding her intermediate to go to when she is discharged from the hospital. Objective Data Objective Data Vital Signs: Vital Signs Temp Pulse Resp BP Pulse Ox O2 Del Method 97.7 F L 78 18 154/54 H 98 Room Air 05/08/24 09:13 05/08/24 09:13 05/08/24 09:13 05/08/24 09:13 05/08/24 09:13 05/08/24 09:13 Oxygen Delivery Method Room Air Weight: 72.9 kg Body Mass Index (BMI) 26.7 Intake & Output: Intake and Output for Last 24 Hours 05/06/24 05/07/24 05/08/24 23:59 23:59 23:59 Intake Total 1050 / 1050 650 / 650 Output Total 2900 / 2900 Balance 1050 / 1050 -2900 / -2700 650 / 650 Lab / Micro Data 05/07/24 04:10 05/07/24 04:10 Labs: Laboratory Results - last 24 hr 05/07/24 16:24: POC Glucose 189 H 05/07/24 22:55: POC Glucose 273 H 05/08/24 06:23: POC Glucose 117 H 05/08/24 11:35: POC Glucose 215 H Radiography Diagnostic Testing: Radiology Impression Vessel Mapping-Hemodialysis Access 05/04/24 12:04 Interpretation Summary Right upper extremity arteries patent with normal waveforms and measurements above. Right upper extremity veins patent with measurements above. Ordering Physician: Angel Joel Referring Physician: MD Raúl Eric Performed By: Gene Tyson RVT ??? Ankle Brachial Index 05/07/24 11:13 Interpretation Summary Right RALPH 1.19, normal. Doppler/PVR waveforms of the right leg normal at rest.TBI diminished, pedal/digit disease vs spasm Left RALPH 1.13, normal. TBI and Doppler/PVR waveforms of the left leg normal at rest. Ordering Physician: Gustavo Julian Referring Physician: MD Raúl Eric Performed By: Gene Tyson, YAN Physical Exam Narrative alert, oriented x3, no apparent distress, average body habitus and healthy appearing General Appearance: cooperative, well kempt and well developed Orientation / Consciousness: awake, oriented to person, oriented to place and oriented to time HEENT normocephalic and moist oral mucous membranes Eyes PERRL, EOMs intact bilaterally and conjunctivae normal Neck supple, no JVD, thyroid normal and no carotid bruits General: trachea midline Resp normal respiratory effort, no retractions, no use of accessory muscles and clear to auscultation bilaterally Auscultation: Negative for rales, rhonchi or wheezes Cardio regular rate, regular rhythm, S1 normal heart sound, S2 normal heart sound, no murmurs, no rub and no gallops GI normal to inspection, nondistended, normoactive bowel sounds, soft to palpation, non-tender and non-distended Extremity no clubbing, cyanosis or edema Skin no rashes or lesions noted General Skin Exam: no breakdown Neuro oriented x3, CN's II-XII intact bilaterally, moves all extremities, no focal motor deficits and no sensory deficits noted Sensorium / Orientation: awake and alert Speech: speech normal Psych affect normal Assessment & Plan Assessment/Plan (1) Debility: PLAN: Plan 1. Debility-patient will continue to be seen by PT and OT, she will most likely need [facility] a [facility] facility at least for short-term skilled services. #2 end-stage renal disease requiring dialysis-nephrology is participating in her care, she will be undergoing dialysis 3 times a week while she is in the hospital-next dialysis time is tomorrow #3 type 2 khtueysr-Tbpy-Hgezf will be performed, sliding scale insulin will be administered as needed, patient is on scheduled long-acting and short acting insulin. #4 essential hypertension-patient's blood pressure will be monitored and her medications will be adjusted as needed #5 vfzb-[id number]-bmssiygh unclear, again patient will need to go to an extended care facility at least for short-term skilled services. 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
--- NOTE | 2024-05-08 14:33 | PCM.PN.REN ---
Subjective Subjective No new events Objective Data Objective Data Vital Signs: Vital Signs Temp Pulse Resp BP Pulse Ox O2 Del Method 98.5 F 72 18 119/52 L 96 Room Air 05/08/24 14:12 05/08/24 14:14 05/08/24 14:12 05/08/24 14:14 05/08/24 14:12 05/08/24 14:12 Oxygen Delivery Method Room Air Weight: 72.9 kg Body Mass Index (BMI) 26.7 Intake & Output: Intake and Output for Last 24 Hours 05/06/24 05/07/24 05/08/24 23:59 23:59 23:59 Intake Total 1050 / 1050 650 / 650 Output Total 2900 / 2900 Balance 1050 / 1050 -2900 / -2700 650 / 650 Lab / Micro Data 05/07/24 04:10 05/07/24 04:10 Labs: Laboratory Results - last 24 hr 05/07/24 16:24: POC Glucose 189 H 05/07/24 22:55: POC Glucose 273 H 05/08/24 06:23: POC Glucose 117 H 05/08/24 11:35: POC Glucose 215 H Radiography Diagnostic Testing: Radiology Impression Vessel Mapping-Hemodialysis Access 05/04/24 12:04 Interpretation Summary Right upper extremity arteries patent with normal waveforms and measurements above. Right upper extremity veins patent with measurements above. Ordering Physician: Angel Joel Referring Physician: MD Jeaneth Raúl Performed By: Gene Tyson, RVT ??? Ankle Brachial Index 05/07/24 11:13 Interpretation Summary Right RALPH 1.19, normal. Doppler/PVR waveforms of the right leg normal at rest.TBI diminished, pedal/digit disease vs spasm Left RALPH 1.13, normal. TBI and Doppler/PVR waveforms of the left leg normal at rest. Ordering Physician: Gustavo Julian Referring Physician: MD Jeaneth Raúl Performed By: Gene Tyson, RVT Physical Exam Narrative Alert awake no obvious distress no pallor no icterus no JVD s1s2 no murmurs lungs clear abdomen soft no organomegaly Lower extremities are bandaged no cyanosis Assessment & Plan Assessment/Plan (1) ESRD (end stage renal disease) on dialysis: PLAN: On hemodialysis, Tuesday, Tuesday, Tuesday. On Tuesday we could not do dialysis due to catheter dysfunction. Last dialysis Tuesday. Anemia. stable Access. IJ tunneled dialysis catheter.
--- NOTE | 2024-05-08 16:29 | CASEMGMT ---
Social Work- SW met with pt to advise of [facility]; pt refusing to consider [facility] for placement. [facility] and [facility] regarding ramp for home. Pt states that she does not have facebook and has no way to communicate with . Pt states later in conversation that niece provided phone number for , but pt has no international minutes on phone. Pt states that she believes broke up with her and is questioning if she needs to get a divorce. Pt shared that she is having a 6 hour surgery on feet and she is irritable because there is alot going on. SW provided active listening and empathetic support as pt processed emotions. Pt was thankful for help and agreeable to SW reaching out to all SNF in network; pt also questioned going home, stating she does not need heat right now and reporting that her home is not in deplorable/inhabitable living conditions. Pt agreeable to continue pursuing SNF at this time. SW to remain available to follow. ERIN Johnson
[2024-05-08 16:57] LABS: Bedside Glucose 179 mg/dL (74-106)
[2024-05-08] MEDS: oxyCODONE 5 MG Tablet PO (21:53)
[2024-05-08] MEDS: hydrALAZINE 50 MG Tablet PO (22:02)
[2024-05-08 22:24] LABS: Bedside Glucose 183 mg/dL (74-106)
[2024-05-09] VITALS (15 sets, daily range): BP systolic 115–350; BP diastolic 44–99; PULSE 66–78; RESP 14–19; TEMP 36.4–36.9; O2SAT 96–99; BMI 26.7; BMI 26.1
[2024-05-09] MEDS: oxyCODONE 5 MG Tablet PO ×2 (04:55→18:06)
[2024-05-09] MEDS: Levothyroxine 25 MCG TABLET PO (04:56)
[2024-05-09 06:56] LABS: Bedside Glucose 117 mg/dL (74-106)
[2024-05-09] MEDS: LORazepam 0.5 MG Tablet PO (07:33)
[2024-05-09] MEDS: PureFlow B 2K Dialysis Soln 1 BAG 6 BAG PF (07:40)
[2024-05-09] MEDS: 0.9% Saline Lock 10 ML Syringe IV ×3 (07:40→21:44)
[2024-05-09] MEDS: 0.9% Normal Saline 1,000 ML IV.SOLN. 1000 ML OPERA.SITE (07:40)
--- NOTE | 2024-05-09 09:58 | PN.HOSP_ITS ---
Reason for Visit Reason for Visit: Diagnoses Type 2 diabetes mellitus with diabetic polyneuropathy (05/04/24) Non-pressure chronic 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 layer exposed (05/04/24) Non-pressure chronic ulcer of other part of left foot with fat layer exposed (05/04/24) Charcot's joint, right ankle and foot (05/04/24) Charcot's joint, left ankle and foot (05/04/24) Other acute osteomyelitis, right ankle and foot (05/04/24) Other acute osteomyelitis, left ankle and foot (05/04/24) End stage renal disease (05/04/24) Other malaise (05/04/24) Adult failure to thrive (05/04/24) Hyperglycemia, unspecified (05/04/24) salvage 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 She will be undergoing foot surgery tomorrow Objective Data Objective Data Vital Signs: Vital Signs Temp Pulse Resp BP Pulse Ox O2 Del Method 97.5 F L 69 14 147/58 H 96 Room Air 05/09/24 02:58 05/09/24 09:49 05/09/24 09:49 05/09/24 09:49 05/09/24 07:20 05/09/24 09:49 Oxygen Delivery Method Room Air Weight: 72.9 kg Body Mass Index (BMI) 26.7 Intake & Output: Intake and Output for Last 24 Hours 05/07/24 05/08/24 05/09/24 23:59 23:59 23:59 Intake Total 1150 / 1350 400 / 400 Output Total 2900 / 2900 Balance -2900 / -2700 1150 / 1350 400 / 400 Lab / Micro Data 05/07/24 04:10 05/07/24 04:10 Labs: Laboratory Results - last 24 hr 05/08/24 11:35: POC Glucose 215 H 05/08/24 16:39: POC Glucose 179 H 05/08/24 22:05: POC Glucose 183 H 05/09/24 06:37: POC Glucose 117 H Radiography Diagnostic Testing: Radiology Impression Ankle Brachial Index 05/07/24 11:13 Interpretation Summary Right RALPH 1.19, normal. Doppler/PVR waveforms of the right leg normal at rest.TBI diminished, pedal/digit disease vs spasm Left RALPH 1.13, normal. TBI and Doppler/PVR waveforms of the left leg normal at rest. Ordering Physician: Gustavo Julian Referring Physician: MD Jeaneth Raúl Performed By: Gene Tyson, RVT Physical Exam Narrative alert, oriented x3, no apparent distress, average body habitus and healthy appearing General Appearance: cooperative, well kempt and well developed Orientation / Consciousness: awake, oriented to person, oriented to place and oriented to time HEENT normocephalic and moist oral mucous membranes Eyes PERRL, EOMs intact bilaterally and conjunctivae normal Neck supple, no JVD, thyroid normal and no carotid bruits General: trachea midline Resp normal respiratory effort, no retractions, no use of accessory muscles and clear to auscultation bilaterally Auscultation: Negative for rales, rhonchi or wheezes Cardio regular rate, regular rhythm, S1 normal heart sound, S2 normal heart sound, no murmurs, no rub and no gallops GI normal to inspection, nondistended, normoactive bowel sounds, soft to palpation, non-tender and non-distended Extremity no clubbing, cyanosis or edema Skin no rashes or lesions noted General Skin Exam: no breakdown Neuro oriented x3, CN's II-XII intact bilaterally, moves all extremities, no focal motor deficits and no sensory deficits noted Sensorium / Orientation: awake and alert Speech: speech normal Psych affect normal Assessment & Plan Assessment/Plan (1) Debility: PLAN: Plan 1. Debility-patient will continue to be seen by PT and OT, she will most likely need placement in a long term facility at least for short-term skilled services. #2 end-stage renal disease requiring dialysis-nephrology is participating in her care, she will be undergoing dialysis 3 times a week while she is in the hospital #3 type 2 cuzhlxrx-Syis-Cnwor will be performed, sliding scale insulin will be administered as needed, patient is on scheduled long-acting and short acting insulin. #4 essential hypertension-patient's blood pressure will be monitored and her medications will be adjusted as needed #5 dosm-hohibok-yiwaiikd unclear, again patient will need to go to an extended care facility at least for short-term skilled services. 

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
[2024-05-09] MEDS: Heparin 10,000 UNITS/10 ML Vial IV (10:24)
--- NOTE | 2024-05-09 10:39 | CASEMGMT ---
Addendum entered by Georgia Williamson 05/09/24 11:58: Social Work- [facility]. [facility] referral cancelled. ERIN Johnsno Original Note: Social Work- Per pt approval of sending additional referrals in network, SW completed referrals to [facility] and [facility]. [facility] is unable to accept, but will send referral to sister facility, [facility]. ERIN Johnson
--- NOTE | 2024-05-09 10:43 | CASEMGMT ---
KELSIE IRELAND NOTE: E-mail sent to [facility] to notify them pt was admitted to [facility]. Delta MANLEY RN CM
[2024-05-09] MEDS: Nepro with Carbsteady 237 ML Liquid 120 ML PO (11:06)
[2024-05-09] MEDS: amLODIPine 5 MG Tablet PO (11:07)
[2024-05-09] MEDS: Atorvastatin Calcium 40 MG Tablet PO (11:07)
[2024-05-09] MEDS: Carvedilol 25 MG Tablet PO ×2 (11:07→21:43)
[2024-05-09] MEDS: Heparin Injection (Vial) 5,000 UNIT/ML VIAL 5000 UNIT SC (11:08)
[2024-05-09] MEDS: Paroxetine 20 MG Tablet PO (11:08)
[2024-05-09] MEDS: buPROPion (XL) 150 MG TABLET.XL PO (11:08)
[2024-05-09] MEDS: Pantoprazole Sodium 40 MG Tablet PO (11:08)
[2024-05-09] MEDS: Folic Acid 1 MG Tablet PO (11:08)
[2024-05-09 11:45] LABS: Bedside Glucose 247 mg/dL (74-106)
--- NOTE | 2024-05-09 11:50 | PN_ITS ---
Objective Data Objective Data Vital Signs: Vital Signs Temp Pulse Resp BP Pulse Ox O2 Del Method 97.5 F L 76 14 141/64 H 98 Room Air 05/09/24 02:58 05/09/24 10:40 05/09/24 10:40 05/09/24 10:40 05/09/24 10:40 05/09/24 10:40 Oxygen Delivery Method Room Air Weight: 71.1 kg Body Mass Index (BMI) 26.1 Intake & Output: Intake and Output for Last 24 Hours 05/07/24 05/08/24 05/09/24 23:59 23:59 23:59 Intake Total 1150 / 1350 400 / 400 Output Total 2900 / 2900 1800 / 1800 Balance -2900 / -2700 1150 / 1350 -1400 / -1400 Lab / Micro Data 05/07/24 04:10 05/07/24 04:10 Labs: Laboratory Results - last 24 hr 05/08/24 11:35: POC Glucose 215 H 05/08/24 16:39: POC Glucose 179 H 05/08/24 22:05: POC Glucose 183 H 05/09/24 06:37: POC Glucose 117 H 05/09/24 11:22: POC Glucose 247 H Radiography Diagnostic Testing: Radiology Impression Ankle Brachial Index 05/07/24 11:13 Interpretation Summary Right RALPH 1.19, normal. Doppler/PVR waveforms of the right leg normal at rest.TBI diminished, pedal/digit disease vs spasm Left RALPH 1.13, normal. TBI and Doppler/PVR waveforms of the left leg normal at rest. Ordering Physician: Gustavo Julian Referring Physician: MD Jeaneth Raúl Performed By: Gene Tyson RVT Physical Exam Narrative Vascular: DP and PT pulses palpable 2/4 bilaterally. CFT brisk to toes. Atrophic skin and absent digital hairgrowth noted to bilateral feet. Neurologic: light touch and protective sensation completely absent to bilateral feet and lower extremities. Dermatologic: Full thickness wounds down to subcutaneous tissue noted to bilateral plantar lateral midfoot with moderate drainage. No other acute signs of infection. No deep probing or undermining. Musculoskeletal: Plantar lateral convexity to bilateral feet at level of CC and 5th TMTJ contributing to wound formation. 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 Will continue to follow closely. (2) Non-pressure chronic 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 layer exposed: (3) Non-pressure chronic ulcer of other part of left foot with fat layer exposed: (4) Charcot's joint, right ankle and foot: (5) Charcot's joint, left ankle and foot: (6) Other acute osteomyelitis, right ankle and foot: (7) Other acute osteomyelitis, left ankle and foot:
--- NOTE | 2024-05-09 11:53 | CASEMGMT ---
Social Work- SW received acceptance from [facility]. SW updated pt; pt agreeable and reports [facility] as preference. SW advised [facility] that [facility] are [facility]. SW provided support and listening, as pt reported continued anxiety over spouse not communicating with pt; SW guided pt through problem-solving process to arrive at a decision to ask family to purchase international minutes for pt on Tuesday when she gets paid so she can reach out via telephone rather than social media to spouse. SW and pt discussed coping skills that pt can utilize. SW to remain available to follow. Plan: [facility]; luz marina not started d/t procedure tomorrow. ERIN Johnson
[2024-05-09] MEDS: Insulin Lispro 100 UNIT/ML INSULN.PEN SC ×2 (11:55→21:44)
[2024-05-09] MEDS: Calcium Acetate 667 MG Capsule PO ×2 (11:57→16:50)
--- NOTE | 2024-05-09 12:15 | WOUNDNOTE ---
wound photo: left foot
--- NOTE | 2024-05-09 12:16 | WOUNDNOTE ---
wound photo: right foot
--- NOTE | 2024-05-09 13:18 | PCM.PN.REN ---
Subjective Subjective no new complaints Objective Data Objective Data Vital Signs: Vital Signs Temp Pulse Resp BP Pulse Ox O2 Del Method 97.5 F L 76 14 141/64 H 98 Room Air 05/09/24 02:58 05/09/24 10:40 05/09/24 10:40 05/09/24 10:40 05/09/24 10:40 05/09/24 10:40 Oxygen Delivery Method Room Air Weight: 71.1 kg Body Mass Index (BMI) 26.1 Intake & Output: Intake and Output for Last 24 Hours 05/07/24 05/08/24 05/09/24 23:59 23:59 23:59 Intake Total 1150 / 1350 750 / 750 Output Total 2900 / 2900 1800 / 1800 Balance -2900 / -2700 1150 / 1350 -1050 / -1050 Lab / Micro Data 05/07/24 04:10 05/07/24 04:10 Labs: Laboratory Results - last 24 hr 05/08/24 16:39: POC Glucose 179 H 05/08/24 22:05: POC Glucose 183 H 05/09/24 06:37: POC Glucose 117 H 05/09/24 11:22: POC Glucose 247 H Physical Exam Narrative Alert awake no obvious distress no pallor no icterus no JVD s1s2 no murmurs lungs clear abdomen soft no organomegaly Lower extremities are bandaged no cyanosis Assessment & Plan Assessment/Plan (1) ESRD (end stage renal disease) on dialysis: PLAN: On hemodialysis, Tuesday, Tuesday, Tuesday. On Tuesday we could not do dialysis due to catheter dysfunction. Last dialysis Tuesday. HD today. see orders. catheter working well Anemia. stable Access. IJ tunneled dialysis catheter.
[2024-05-09] MEDS: hydrALAZINE 50 MG Tablet PO ×2 (14:23→21:43)
--- NOTE | 2024-05-09 15:08 | CASEMGMT ---
Social Work- SW called special education case manager, Jonna, to return a call and f/u. SW left voicemail. ERIN Johnson
[2024-05-09 16:47] LABS: Bedside Glucose 127 mg/dL (74-106)
[2024-05-09] MEDS: Calcitriol 0.25 MCG Capsule 0.5 MCG PO (16:50)
[2024-05-09] MEDS: Ondansetron 4 MG/2 ML Vial IV (18:11)
[2024-05-09] MEDS: Gabapentin 100 MG Capsule PO (19:41)
[2024-05-09] MEDS: Acetaminophen 325 MG Tablet 650 MG PO (21:44)
[2024-05-09] MEDS: DiphenhydrAMINE 25 MG Capsule PO (21:44)
[2024-05-09 23:35] LABS: Bedside Glucose 206 mg/dL (74-106)
[2024-05-10] VITALS (17 sets, daily range): BP systolic 116–148; BP diastolic 54–78; PULSE 63–74; RESP 16–18; TEMP 36.5–36.8; O2SAT 85–100
[2024-05-10 06:55] LABS: Bedside Glucose 88 mg/dL (74-106)
--- NOTE | 2024-05-10 07:24 | PCM.PRE.AN2 ---
ASA Classification* ASA Classification ASA Classification: 3 Assessment & Plan Anesthesia* Anesthesia Assessment Anesthesia Assessment: Discussed sedation and/or anesthesia options, risks, benefits, and alternatives with patient/parents/legal guardian/POA. Questions invited. The patient/parents/legal guardian/POA seems to understand and agrees to proceed with anesthesia plan. Reviewed the physical assessment, medical history, allergy history and patient home medications list prior to surgery/procedure/anesthetic and documented any changes. Performed airway and anesthesia risk assessments. Anesthesia Type Anesthesia Type: General (Consented for Popliteal blocks if requested by surgeon.) Anesthesia Focused Assessment* Temperature: 97.7 F Pulse Rate: 68 Blood Pressure: 148/71 Respiratory Rate: 16 Pulse Ox: 97 Airway Assessment Mouth opens: >3 cm Mallampati Score: II Focused Labs Anesthesia Preop lab: CBC WBC 6.5 K/mm3 (4.4-11.0) 05/07/24 04:10 RBC 2.78 M/mm3 (4.2-5.4) L 05/07/24 04:10 Hgb 8.2 g/dL (12.0-15.0) L 05/07/24 04:10 Hct 26.2 % (37-47) L 05/07/24 04:10 Plt Count 263 K/mm3 (150-450) 05/07/24 04:10 CHEMISTRY Potassium 5.0 mmol/L (3.5-5.1) 05/07/24 04:10 Sodium 135 mmol/L (136-145) L 05/07/24 04:10 Magnesium 2.0 mg/dL (1.6-2.6) 03/26/24 05:12 Phosphorus 5.2 mg/dL (2.5-4.9) H 03/26/24 05:12 BUN 81 mg/dL (7-18) H 05/07/24 04:10 Creatinine 7.09 mg/dL (0.55-1.02) H 05/07/24 04:10 Glucose 119 mg/dL (74-106) H 05/07/24 04:10 POC Glucose 88 mg/dL (74-106) 05/10/24 06:28 TSH 2.09 uIU/mL (0.358-3.74) 05/02/24 23:18 COAG PT 13.7 SECONDS (11.7-14.9) 05/07/24 04:10 Urine Test Negative Negative 11/08/18 19:40 Pre-Assessment Diagnosis/Proposed Procedure Planned Operative Procedure(s): Endoscopic gastroc recession, wound debridments diamond feet Anesthesia History 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 When Was Last Pacemaker Check QUESTION #4 FULL TEXT: You/Your Family Experience fever (hyperthermia) with Anesthesia Last Oral Intake Last Oral intake: Last Oral Intake NPO since 00:00 05/10/24 06:32 Meds taken in AM with sips of No 05/10/24 06:32 water? Meds patient instructed to take am of surgery PONV PONV - field support technician: PONV - field support technician Female HX of Motion Sickness HX of N/V After Surgery Non-Smoker Duration of Surgery greater than 60 minutes Number of Risk Factors PONV Score Height & Weight Height & Weight: Anesthesia: Height & Weight Height 5 ft 5 in 05/05/24 09:11 Weight: 71.1 kg 05/10/24 06:32 Body Mass Index (BMI) 26.1 05/09/24 10:40 Respiratory Assessment Respiratory Assessment - field support technician: Respiratory Tract Infection Hx - field support technician Hx Respiratory Tract Infection No 05/09/24 21:40 STOP Sleep Apnea STOP Sleep Apnea - field support technician: STOP Sleep Apnea - field support technician Hx Hypertension Yes 05/05/24 11:40 Hx Sleep Apnea No 05/04/24 06:38 CPAP No 03/25/24 17:33 BIPAP No 03/25/24 17:33 Do you snore loudly (louder No 05/04/24 06:38 than talking or can be heard Do you often feel tired/ No 05/04/24 06:38 fatigued/ sleepy during daytime? Has anyone observed you stop No 05/04/24 06:38 breathing during sleep? STOP Results Negative 05/04/24 06:38 QUESTION #5 FULL TEXT : Do you snore loudly (louder than talking or can be heard through closed doors)? 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 Specify any problems Hx of Preganancy in last 3 N/A 05/04/24 06:38 Months Nurse Filling Out Transfusion LSHRINER 05/04/24 06:38 & Questions: Date: 05/04/24 05/04/24 06:38 Time: 07:44 05/04/24 06:38 Patient unable to answer at this time (ie. confused, unrespo /Reproduction History /Reproductive History - field support technician: /Reproductive Hx- field support technician Hx Now No 05/09/24 21:40 Gestational Age (in weeks): EDC: Hx Hx Para Hx Section SAB No 05/09/24 21:40 Active Medications Active Medications: Current Medications Generic Name Dose Route Start Last Admin Trade Name Freq PRN Reason Stop Dose Admin Acetaminophen 650 mg 05/04/24 07:50 05/09/24 21:44 Acetaminophen 325 Mg Tablet PO 650 mg Q6H PRN PRN Administration Pain 1-10 Or Fever>100.7 Amlodipine Besylate 5 mg 05/04/24 10:00 05/09/24 11:07 Amlodipine 5 Mg Tablet PO 5 mg DAILY TAB Administration Protocol Aspirin 81 mg 05/04/24 10:00 05/05/24 08:44 Aspirin 81 Mg Tab.Chew PO 81 mg DAILYCM TAB Administration Atorvastatin Calcium 40 mg 05/04/24 10:00 05/09/24 11:07 Atorvastatin Calcium 40 Mg Tablet PO 40 mg DAILY TAB Administration Bupropion HCl 150 mg 05/04/24 10:00 05/09/24 11:08 Bupropion (Xl) 150 Mg Tablet.Xl PO 150 mg DAILY TAB Administration Calcitriol 0.5 mcg 05/04/24 16:00 05/09/24 16:50 Calcitriol 0.25 Mcg Capsule PO 0.5 mcg [id number] [facility] Administration Calcium Acetate 667 mg 05/04/24 08:00 05/10/24 07:04 Calcium Acetate 667 Mg Capsule PO Not Given TIDCM [facility] Carvedilol 25 mg 05/04/24 10:00 05/09/24 21:43 Carvedilol 25 Mg Tablet PO 25 mg BID TAB Administration Protocol Diphenhydramine HCl 25 mg 05/06/24 17:01 05/09/24 21:44 Diphenhydramine 25 Mg Capsule PO 25 mg Q6H PRN PRN Administration ITCHING Ferrous Sulfate 325 mg 05/05/24 08:00 05/10/24 07:04 Ferrous Sulfate 325 Mg Tablet PO Not Given TuThSa@0800 [facility] Folic Acid 1 mg 05/04/24 08:00 05/10/24 07:04 Folic Acid 1 Mg Tablet PO Not Given BREAKFAST [facility] Gabapentin 100 mg 05/04/24 07:50 05/09/24 19:41 Gabapentin 100 Mg Capsule PO 100 mg MoWeFr PRN Administration Pain Score 1-10 Glucagon 1 mg 05/04/24 07:50 Glucagon 1 Mg/Ml Syringe IM X1 PRN Hypoglycemia Protocol Heparin Sodium (Porcine) 5,000 unit 05/04/24 10:00 05/09/24 11:08 Heparin Injection (Vial) 5,000 Unit/Ml Vial SC 5,000 unit Q12 [facility] Administration Hydralazine HCl 50 mg 05/05/24 14:00 05/10/24 06:36 Hydralazine 50 Mg Tablet PO Not Given TID [facility] Protocol Hydralazine HCl 10 mg 05/05/24 10:23 Hydralazine 20 Mg/Ml Vial IV Q4H PRN PRN SBP more than 180 mmHg Protocol Dextrose 250 mls @ 0 mls/hr 05/04/24 07:50 Dextrose 10%-Water IV .Q0M PRN HYPOGLYCEMIA Protocol As Directed Sodium Chloride 500 mls @ 0 mls/hr 05/10/24 07:00 IV .Q0M TAB KVO Insulin Human Lispro 0 unit 05/04/24 07:50 05/10/24 06:36 Insulin Lispro 100 Unit/Ml Insuln.Pen SC Not Given ACHS [facility] Protocol Levothyroxine Sodium 25 mcg 05/05/24 06:00 05/10/24 06:35 Levothyroxine 25 Mcg Tablet PO Not Given DAILY@0600 TAB Lorazepam 0.5 mg 05/04/24 16:00 05/09/24 07:33 Lorazepam 0.5 Mg Tablet PO 0.5 mg [id number]@1000 TAB Administration Melatonin 3 mg 05/04/24 07:50 05/06/24 21:42 Melatonin 3 Mg Tablet PO 3 mg QHS PRN PRN Administration INSOMNIA Nut Tx Impaired Renal Fxn/Lac-Reduc 120 ml 05/04/24 17:00 05/10/24 07:04 Nepro With Carbsteady 237 Ml Liquid PO Not Given TIDCM [facility] Ondansetron HCl 4 mg 05/04/24 07:50 05/09/24 18:11 Ondansetron 4 Mg/2 Ml Vial IV 4 mg Q8H PRN PRN Administration NAUSEA/VOMITING Oxycodone HCl 5 mg 05/05/24 04:03 05/09/24 18:06 Oxycodone 5 Mg Tablet PO 5 mg Q6H PRN PRN Administration Pain Score 4-10 Pantoprazole Sodium 40 mg 05/04/24 10:00 05/09/24 11:08 Pantoprazole Sodium 40 Mg Tablet PO 40 mg DAILY TAB Administration Paroxetine HCl 20 mg 05/04/24 10:00 05/09/24 11:08 Paroxetine 20 Mg Tablet PO 20 mg DAILY TAB Administration Sodium Chloride 10 - 40 ml 05/04/24 14:40 05/09/24 21:44 0.9% Saline Lock 10 Ml Syringe IV 10 ml UD PRN Administration SALINE FLUSH [facility] Medical History Debility Charcot's joint, right ankle and foot Charcot's joint, left ankle and foot Non-pressure chronic 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 layer exposed Non-pressure chronic ulcer of other part of left foot with fat layer exposed Drowsiness Mental status, decreased Carotid artery stenosis MSSA bacteremia ESRD on hemodialysis Osteomyelitis Anemia in chronic illness Type 2 diabetes mellitus Foot osteomyelitis, left Chronic renal disease, stage 4, severely decreased glomerular filtration rate (GFR) between 15-29 mL/min/1.73 square meter Acute on chronic anemia Chronic ulcer of right foot with necrosis of bone Chronic kidney disease, stage 4 (severe) Diabetes mellitus with diabetic polyneuropathy Diabetic foot ulcers Chronic kidney disease, stage 3b Cellulitis Acute lumbar radiculopathy Essential hypertension Adult failure to thrive COVID-19 (08/28/21) Chronic ulcer of right leg with fat layer exposed Ulcer of left foot with fat layer exposed Chronic ulcer of right foot with fat layer exposed Hyperparathyroidism, secondary renal Iron deficiency anemia Bilateral edema of lower extremity Chronic foot pain Charcot's joint of right foot Diabetes Non-smoker Myocardial infarct Hypertension TIA (transient ischemic attack) Amputation foot, bilat 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 Ulcer of left foot with necrosis of muscle Ulcer of left foot with muscle involvement without evidence of necrosis Anxiety and depression Diabetic infection of left foot Delayed wound healing Non-compliance Diabetic polyneuropathy Ischemic cardiomyopathy Obesity (BMI 30.0-34.9) Acquired varus deformity of left foot Acquired varus deformity of right foot Atherosclerosis of [place] coronary artery of [place] heart without angina pectoris Hemoglobin A1c greater than 9.0% NSTEMI (non-ST elevated myocardial infarction) (09/20/18) GERD (gastroesophageal reflux disease) HLD (hyperlipidemia) Back pain, chronic RLS (restless legs syndrome) Home Medications ?Medication ?Instructions ?Recorded ?Last Taken ?Type paroxetine HCl 20 mg tablet 20 mg PO DAILY DEPRESSION 07/07/21 04/07/22 History bupropion HCl 150 mg 24 hr tablet, 150 mg PO DAILY mood 02/04/22 04/07/22 History extended release sennosides 8.6 mg-docusate sodium 2 tab PO BID PRN PRN Constipation 04/24/22 Unknown Rx 50 mg tablet (Stool #0 tabs Softener-Stimulant Laxative) ascorbic acid (vitamin C) 500 mg 500 mg PO BID supplement 05/05/22 Unknown History tablet (Vitamin C) clopidogrel 75 mg tablet 75 mg PO DAILY prevent stroke 07/19/22 Unknown History ferrous sulfate 325 mg (65 mg 325 mg PO .three times a week 07/19/22 Unknown History iron) tablet anemia pantoprazole 40 mg tablet,delayed 40 mg PO BIDCM GERD 07/19/22 Unknown History release insulin glargine-yfgn 100 unit/mL 5 unit (0.05 mL) subcut QHS blood 07/21/22 Unknown Rx (3 mL) subcutaneous pen sugar #15 mL insulin lispro 100 unit/mL See Protocol subcut TIDAC #0 mL 07/21/22 Unknown Rx subcutaneous pen (Humalog KwikPen (U-100) Insulin) cyclobenzaprine 5 mg tablet 5 mg PO TID PRN muscle spasm #21 11/26/23 Unknown Rx tabs gabapentin 100 mg capsule 100 mg PO .COMPLEX PRN pain 11/26/23 Unknown History Mircera See Rx Instructions .Route 12/16/23 Unknown History .COMPLEX dialysis Venofer iron 12/16/23 Unknown History acetaminophen 325 mg capsule 325 mg PO Q4H PRN fever or pain 12/16/23 Unknown History amlodipine 5 mg tablet 5 mg PO DAILY bp 12/16/23 Unknown History antacid extra assorted fruit 750 mg PO .every 4 hours PRN tums 12/16/23 Unknown History tablets calcitriol 0.5 mcg capsule 0.5 mcg PO .COMPLEX on dialysis 12/16/23 Unknown History calcium acetate(phosphat bind) 667 676 mg PO TID is on dialysis 12/16/23 Unknown History mg capsule cloNIDine See Rx Instructions .Route 12/16/23 Unknown History .COMPLEX dialysis diphenhydramine 25 mg IV itching 12/16/23 Unknown History folic acid 800 mcg tablet 0.8 mg PO DAILY supplement 12/16/23 Unknown History hydralazine 25 mg tablet 25 mg PO TID bp 12/16/23 Unknown History insulin aspart U-100 6 unit subcut TID blood glucose 12/16/23 Unknown History insulin aspart U-100 100 unit/mL subcut 12/16/23 Unknown History (3 mL) subcutaneous pen insulin glargine 100 unit/mL (3 20 unit subcut DAILY blood glucose 12/16/23 Unknown History mL) subcutaneous pen (Lantus Solostar U-100 Insulin) isosorbide dinitrate 10 mg tablet 20 mg PO TID bp and heart 12/16/23 Unknown History levothyroxine 25 mcg tablet 25 mcg PO DAILY thyroid 12/16/23 Unknown History lidocaine-silicone, adhesive topical pain 12/16/23 Unknown History loperamide 2 mg capsule 2 mg PO Q4H PRN loose stool 12/16/23 Unknown History (Anti-Diarrheal (loperamide)) melatonin 5 mg capsule 5 mg PO .bedtime sleep 12/16/23 Unknown History nitroglycerin 0.4 mg sublingual 0.4 mg sublingual Q5M chest pain 12/16/23 Unknown History tablet (Nitrostat) olanzapine 5 mg tablet 5 mg PO QHS sleep 12/16/23 Unknown History ondansetron 4 mg disintegrating 4 mg PO DAILY PRN nausea and 12/16/23 Unknown History tablet vomiting pramipexole dihydrochloride 1.5 mg PO BID unknown 12/16/23 Unknown History promethazine 25 mg tablet 25 mg PO Q4H PRN nausea and 12/16/23 Unknown History vomiting aspirin 81 mg capsule 81 mg PO DAILY #30 caps 12/26/23 Unknown Rx cefepime 1 gram/50 mL in dextrose 1 g IV .as directed 12/26/23 Unknown Rx 5 % intravenous piggyback atorvastatin 40 mg tablet 40 mg PO DAILY 03/18/24 Unknown History buprenorphine 5 mcg/hour weekly 1 patch topical QWEEK 03/18/24 Unknown History transdermal patch carvedilol 25 mg tablet 25 mg PO BID 03/18/24 Unknown History clindamycin HCl 150 mg capsule 450 mg (3 x 150 mg) PO TID 7 days 04/19/24 Unknown Rx #63 CAPSULES clindamycin HCl 150 mg capsule 450 mg (3 x 150 mg) PO TID 10 days 04/25/24 Unknown Rx #90 caps Allergy/AdvReac Type Severity Reaction Status Date / Time oxycodone (From OxyContin) Allergy sob Verified 05/05/24 04:11 Penicillins Allergy swelling Verified 04/25/24 18:14 in throat vancomycin Allergy Itching Verified 04/25/24 18:14 metronidazole AdvReac Nausea Verified 04/25/24 18:14 Family History Mother Diabetes CVA (cerebral vascular accident) Brother CAD (coronary artery disease) CABG X 3 Cancer testicular Diabetes Brother CAD (coronary artery disease) CABG X3 Diabetes Brother CAD (coronary artery disease) Stents Diabetes Sister CAD (coronary artery disease) CABG x 3 CVA (cerebral vascular accident) Diabetes Surgical History History of History of foot surgery History of bilateral carpal tunnel release History of rotator cuff surgery History of coronary artery stent placement (12/31/20) Social History household members: none number of children: 2 current occupational status: disabled Smoking Status: Never smoker alcohol intake: never substance use type: does not use caffeine: Yes Type: carbonated beverages Number of servings: 2 Review of Systems (Anesthesia) ROS Narrative System reviewed and no additional complaints, except as documented.
[2024-05-10] MEDS: Clindamycin 600 MG/50 ML BAG 100 MG IV (07:45)
--- NOTE | 2024-05-10 08:00 | BON_PTH ---
PATIENT: DIONY ROCHA LOC: [facility]3 U#:[id number] AGE/SX: 58/F ROOM: MS308 RE05/04/[address]: Dr. Neal Walton DO : 1965 BED: 1 DIS: 05/21/2024 SPEC #: [id number] RECD: 05/10/24 12:33 STATUS: LON REQ #: [id number] ANEL: 05/10/24 08:[address]: Gustavo Julian DEPT: SURGICAL PATHOLOGY RECD BY: Angela Freedman ENTERED: 05/10/24 13:22 SP TYPE: Bone OTHR DR: DO Dr. Gustavo Koenig, DPM MD Dr. Raúl Arroyo MD Dr. Mark Tereletsky, DO Dr. Prakash Chand, MD Dr. Tamera Robotham, MD Tissues: A - Toe, NOS B - Toe, NOS Procedures: Decalcification bone/plaque Surgery Specimen Level IV Comments: @ Ordering doctor for DEC edited from to @ by YOLETTE at 05/10/24 1343 @ Ordering doctor for SUIV edited from to @ by YOLETTE at 05/10/24 1343 @ Submitting doctor edited from to @ eden DE [place]GA at 05/10/24 1343 HEADER OPERATION: Endoscopic gastric recession, plantar fasciitis PRE-OP DIAGNOSIS: Charcot's joint bilateral ankle TISSUE SUBMITTED: A- Left 5th metatarsal bone, B- Right 5th metatarsal bone MICROSCOPIC DIAGNOSIS A. Left 5th metatarsal bone, excision: A piece of bone with degenerative and reactive changes. Focal mild chronic inflammation. Negative for acute osteomyelitis. B. Right 5th metatarsal bone, excision: A piece of bone with degenerative and reactive changes. Focal mild chronic inflammation. Negative for acute osteomyelitis. MARY ANN/ 05/16/2024 MICROSCOPIC DESCRIPTION Slides are reviewed. GROSS DESCRIPTION A. Received in fixative is one container labeled with the patient's name and designated Left 5th metatarsal bone. The specimen consists of a piece of bone measuring 2.5 x 2.0 x 1.2cm. The specimen is serially sectioned and denial management representative sections are submitted in two cassettes after decalcification. B. Received in fixative is one container labeled with the patient's name and designated Right 5th metatarsal bone. The specimen consists of a piece of bone measuring 3.5 x 3.0 x 2.5cm. The specimen is serially sectioned and denial management representative sections are submitted in two cassettes after decalcification. Jaswant 05/10/2024 TC:5 CPT:[id number]
--- NOTE | 2024-05-10 08:19 | WOUNDNOTE ---
Pt going for surgery this am. dressings left in place.
--- NOTE | 2024-05-10 08:20 | RAD_ITS ---
INDICATION: PAIN EXAMINATION/TECHNIQUE: X-RAY - BILATERAL XR Feet Bilateral 2 Views Ea - [id number] 12 VIEWS COMPARISON: CR Foot LeftJul 2023 7:52pm FINDINGS: BONES/JOINTS: There is been amputation of the fifth metatarsal and cuboid bone. No acute fracture. No subluxation. Normal alignment of the remaining osseous structures. SOFT TISSUES: There is a K wire transfixing the cuneiforms. RAD/Foot 2 Views IMPRESSION: Amputation of the fifth metatarsal and cuboid bone Electronically Signed: Graciela Jensen MD at 23:35 EDT ,
--- NOTE | 2024-05-10 12:13 | PCM.POST.ANE ---
Anesthesia: Postop Eval I Current Vital Signs Temperature: 98.3 F Pulse Rate: 65 Blood Pressure: 124/54 Respiratory Rate: 16 Pulse Ox: 92 Oxygen Delivery Method: Nasal Cannula Oxygen Flow Rate (L/min): 3 Assessment Airway patent: Yes Spontaneous unlabored respirations: Yes Mental status: Awake (C&DB ENC'D) and Calm nausea: No Vomiting: No Anesthesia Complication: No Fluid Hydration Crystalloid volume administer (ml): 200 Total IV fluid infused: 200 Progress Note Anesthesia document: Postop Eval 1 completed: Yes
--- NOTE | 2024-05-10 12:20 | OP.PCM_ITS ---
Problems Associated Problem List Diagnoses (1) Other acute osteomyelitis, left ankle and foot: (2) Other acute osteomyelitis, right ankle and foot: (3) Charcot's joint, left ankle and foot: (4) Charcot's joint, right ankle and foot: (5) Non-pressure chronic ulcer of other part of left foot with fat layer exposed: (6) Non-pressure chronic 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 layer exposed: (7) Type 2 diabetes mellitus with diabetic polyneuropathy: (8) Acquired cavovarus deformity of right foot: (9) Acquired cavovarus deformity of left foot: (10) Short Achilles tendon (acquired), right ankle: (11) Short Achilles tendon (acquired), left ankle: Report of Operation Date of Procedure: 05/10/24 Pre-Operative Diagnosis: 1) plantar lateral midfoot Charcot arthropathy, bilateral lower extremity 2) diabetic neuropathy 3) possible osteomyelitis, bilateral fifth metatarsal base 4) equinus deformity, bilateral lower extremity 5) acquired cavovarus deformity, bilateral lower extremity Post-Operative Diagnosis: Same Surgery/Procedure Performed:: 1) endoscopic gastrocnemius recession, right lower extremity 2) plantar planing via fifth metatarsal excision with partial cuboidectomy, right lower extremity 3) peroneus brevis tendon transfer to cuboid from fifth metatarsal base, right lower extremity 4) wound bed preparation for graft application, right foot 5) application of skin substitute graft, right foot 6) endoscopic gastrocnemius recession, left lower extremity 7) plantar planing via fifth metatarsal excision with partial cuboidectomy, left lower extremity 8) peroneus brevis tendon transfer to cuboid from fifth metatarsal base, left lower extremity 9) wound bed preparation for graft application, left foot 10) application of skin substitute graft, left foot Description of Surgical Findings:: Patient brought back the operating placed comfortably in supine position operating room table. Patient induced under general anesthesia. Well-padded th igh tourniquet is applied to bilateral lower extremity. Bilateral lower extremity was scrubbed prepped draped in position using aseptic technique. Once cleared by anesthesia procedure was initiated. Right lower extremity surgeries 1) endoscopic gastrocnemius recession, right lower extremity: Right lower extremity was elevated exsanguinated tourniquet was inflated to 275 mmHg. The distal head of the gastrocnemius muscle was noted and a poke hole incision was made with a 15 blade medially just 1 cm distal to the transition of the gastrocnemius into the gastrocnemius and nerve aponeurosis this incision was deepened using blunt dissection with hemostats the gastrocnemius aponeurosis was palpated and the obturator and cannula were inserted from medial to lateral the lateral stab incision was made for the obturator and cannula to fully traverse the site a 4 oh scope was inserted from lateral to medial and the gastrocnemius aponeurosis was noted to be released using a hook blade and triangular blade combination. There was an increase from 5 degrees of dorsiflexion to 10 degrees of dorsiflexion with both the knee flexed and extended. 2) plantar planing via fifth metatarsal excision with partial cuboidectomy, right lower extremity Next, using fluoroscopic guidance a incision was planned laterally over the fifth metatarsal base extended along the course of the peroneals to the distal tip of the fibula this was made full-thickness through epidermis dermis into subcu tenia's tissue using a 15 blade blunt dissection was taken down to the level fifth metatarsal base any bleeders identified cauterized neurovascular structures were protected with blunt retraction. The peroneus brevis tendon was identified and transected at its insertion at the fifth metatarsal base and was clamped with kokers for later transfer. Fifth metatarsal base was excised in entirety using combination of sagittal saw osteotome and blunt dissection. This was passed the back table and split and sent for pathology and microbiology for further examination. Additional resection of partial plantar aspect of cuboid performed due to additional plantar convexity noted on the side. Fluoroscopic imaging was used to confirm adequate resection of the fifth metatarsal base and appropriate plantar planing to prevent any residual plantar convexity that may contribute to the plantar foot ulceration. 3) peroneus brevis tendon transfer to cuboid from fifth metatarsal base, right lower extremity Next, peroneus brevis tendon was whipstitched using standard technique and using [employer] tenodesis screws the screw was placed through a buried tunnel technique from proximal to distal through the distal aspect of the calcaneus into the cuboid cuboid with the foot held in a plantarflexed and inverted position using manufactures guidelines. Additionally the tunnel was extended laterally using additional reaming and the suture tape was passed through this tunnel from medial to lateral at the site of application of tenodesis screw for additional stability this was wrapped back to the calcaneus and stabilized with a suture anchor 2.9 mm to the calcaneus. This was then additionally passed underneath the peroneus brevis tendon repair site to the distal fibula with the foot held in an everted position and an additional stability was applied with a 2.9 mm suture anchor at the site. Tourniquet was let down all sites on the right lower extremity were flushed with copious amounts of normal sterile saline and closed using 2 oh for very deep suture. 2-0 Vicryl for subcutaneous closure using simple interrupted technique. Skin closure with agustin. 4) wound bed preparation for graft application, right foot Next, wound bed was prepared for debridement with a bone curette. Predebridement measurements wound was approximately 2.7 x 3.2 by 0.3 cm postdebridement wound was 2.8 x 3.3 x 0.4 cm. Demonstrated clean granular base ready for acceptance of graft. Wound flushed with copious months amounts of normal sterile saline. 5) application of skin substitute graft, right foot [employer] medical BioSkin graft was applied to wound bed plantar lateral midfoot, entire graft used stabilized with overlying Adaptic all incisional sites were dressed with Betadine Adaptic 4 x 4's ABD pads and Kerlix. A splint would be later applied after left lower extremity procedure completed due to sterility issues. 6) endoscopic gastrocnemius recession, left lower extremity Left lower extremity was elevated exsanguinated tourniquet was inflated to 275 mmHg. The distal head of the gastrocnemius muscle was noted and a poke hole incision was made with a 15 blade medially just 1 cm distal to the transition of the gastrocnemius into the gastrocnemius and nerve aponeurosis this incision was deepened using blunt dissection with hemostats the gastrocnemius aponeurosis was palpated and the obturator and cannula were inserted from medial to lateral the lateral stab incision was made for the obturator and cannula to fully traverse the site a 4 oh scope was inserted from lateral to medial and the gastrocnemius aponeurosis was noted to be released using a hook blade and triangular blade combination. There was an increase from 5 degrees of dorsiflexion to 10 degrees of dorsiflexion with both the knee flexed and extended. 7) plantar planing via fifth metatarsal excision with partial cuboidectomy, left lower extremity Next, using fluoroscopic guidance a incision was planned laterally over the fifth metatarsal base extended along the course of the peroneals to the distal tip of the fibula this was made full-thickness through epidermis dermis into subcu tenia's tissue using a 15 blade blunt dissection was taken down to the level fifth metatarsal base any bleeders identified cauterized neurovascular structures were protected with blunt retraction. The peroneus brevis tendon was identified and transected at its insertion at the fifth metatarsal base and was clamped with kokers for later transfer. Fifth metatarsal base was excised in entirety using combination of sagittal saw osteotome and blunt dissection. This was passed the back table and split and sent for pathology and microbiology for further examination. Fluoroscopic imaging was used to confirm adequate resection of the fifth metatarsal base and appropriate plantar planing to prevent any residual plantar convexity that may contribute to the plantar foot ulceration. 8) peroneus brevis tendon transfer to cuboid from fifth metatarsal base, left lower extremity Next, peroneus brevis tendon was whipstitched using standard technique and using [employer] tenodesis screws the screw was placed through a buried tunnel technique from dorsal to plantar through the cuboid with the foot held in a plantarflexed and inverted position. Stay 5 mm Bio-Tenodesis screw. Tourniquet was let down all sites on the right lower extremity were flushed with copious amounts of normal sterile saline and closed using 2 oh for very deep suture. 2- 0 Vicryl for subcutaneous closure using simple interrupted technique. Skin closure with agustin. 9) wound bed preparation for graft application, left foot Next, wound bed was prepared for debridement with a bone curette. Predebridement measurements wound was approximately 2.9 x 3.4 by 0.4 cm postdebridement wound was 3.0 x 3.6 x 0.4 cm. Demonstrated clean granular base ready for acceptance of graft. Wound flushed with copious months amounts of normal sterile saline. 10) application of skin substitute graft, left foot [employer] BioSkin graft was applied to wound bed plantar lateral midfoot, entire graft used stabilized with overlying Adaptic all incisional sites were dressed with Betadine Adaptic 4 x 4's ABD pads and Kerlix. Type of Anesthesia: General Special Medications: None Specimen's removed: Fifth metatarsal base bilaterally for culture and pathology Drains: None Estimated Blood Loss (mL): 200 Description of Procedure: Procedure described above Grafts/Implants Used: Right skin medical BioSkin graft x 2, two 5 mm Bio- Tenodesis screws suture Complications None
[2024-05-10 12:44] LABS: Bedside Glucose 149 mg/dL (74-106)
--- NOTE | 2024-05-10 12:54 | NURSING ---
unable to check pedal pulses d/t surgical dressings on bilateral feet, toes are warm and mobile
[2024-05-10] MEDS: Pantoprazole Sodium 40 MG Tablet PO (13:18)
[2024-05-10] MEDS: hydrALAZINE 50 MG Tablet PO ×2 (13:18→20:16)
[2024-05-10] MEDS: Folic Acid 1 MG Tablet PO (13:18)
[2024-05-10] MEDS: Carvedilol 25 MG Tablet PO ×2 (13:19→20:16)
[2024-05-10] MEDS: Levothyroxine 25 MCG TABLET PO ×2 (13:19)
[2024-05-10] MEDS: amLODIPine 5 MG Tablet PO (13:20)
[2024-05-10] MEDS: Paroxetine 20 MG Tablet PO (13:20)
[2024-05-10] MEDS: buPROPion (XL) 150 MG TABLET.XL PO (13:21)
[2024-05-10 13:41] LABS: Bedside Glucose 184 mg/dL (74-106)
--- NOTE | 2024-05-10 13:43 | NURSING ---
telephone clerks supervisor called re:pt on unit for nearly and hour and no one has taken her lunch order-they agreed to come right away
--- NOTE | 2024-05-10 13:49 | POSTOPAN2_ITS ---
Anesthesia Postop Eval I Sum Postop Eval Completion status Anesthesia document: Postop Eval 1 completed: Yes Anesthesia Postop Eval I Summary Anesthesia Postop Eval I Summary: Anesthesia Postop Eval I: Assessment Summary Airway patent Yes 05/10/24 12:14 CERTIFIED MEDICAL [email or web address] Spontaneous unlabored Yes 05/10/24 12:14 CERTIFIED MEDICAL [email or web address] respirations Mental status Awake - C&DB ENC'D 05/10/24 12:14 CERTIFIED MEDICAL [email or web address] ,Calm nausea No 05/10/24 12:14 CERTIFIED MEDICAL TECHNICIAN.[email or web address] Vomiting No 05/10/24 12:14 CERTIFIED MEDICAL [email or web address].[email or web address] Anesthesia Postop Eval I: Fluid Summary Crystalloid volume administer 200 05/10/24 12:14 CERTIFIED MEDICAL [email or web address].[email or web address] (ml) Colloids volume administered ( ml) Blood Product volume administered (ml) Total IV fluid infused 200 05/10/24 12:14 CERTIFIED MEDICAL [email or web address].[email or web address] Anesthesia Postop Eval I: Summary Notes Anesthesia Complication No 05/10/24 12:14 CERTIFIED MEDICAL TECHNICIAN.[facility] Anesthesia Complication Comment: Post-operative progress note Anesthesia: Postop Eval II Evaluation Mental status: Awake Pain Level: 0 nausea: No Vomiting: No
--- NOTE | 2024-05-10 13:49 | PCM.POSTANE2 ---
Anesthesia Postop Eval I Sum Postop Eval Completion status Anesthesia document: Postop Eval 1 completed: Yes Anesthesia Postop Eval I Summary Anesthesia Postop Eval I Summary: Anesthesia Postop Eval I: Assessment Summary Airway patent Yes 05/10/24 12:14 ORE [email or web address] Spontaneous unlabored Yes 05/10/24 12:14 ORE [email or web address] respirations Mental status Awake - C&DB ENC'D 05/10/24 12:14 ORE [email or web address] ,Calm nausea No 05/10/24 12:14 ORE [email or web address] Vomiting No 05/10/24 12:14 ORE [email or web address] Anesthesia Postop Eval I: Fluid Summary Crystalloid volume administer 200 05/10/24 12:14 ORE [email or web address] (ml) Colloids volume administered ( ml) Blood Product volume administered (ml) Total IV fluid infused 200 05/10/24 12:14 ORE [email or web address] Anesthesia Postop Eval I: Summary Notes Anesthesia Complication No 05/10/24 12:14 [email or web address] Complication Comment: Post-operative progress note Anesthesia: Postop Eval II Evaluation Mental status: Awake Pain Level: 0 nausea: No Vomiting: No
--- NOTE | 2024-05-10 15:06 | PCM.PN.REN ---
Subjective Subjective No new complaints Objective Data Objective Data Vital Signs: Vital Signs Temp Pulse Resp BP Pulse Ox O2 Del Method O2 Flow Rate 97.9 F 70 18 147/78 H 94 Room Air 2 05/10/24 14:45 05/10/24 14:45 05/10/24 14:45 05/10/24 14:45 05/10/24 14:45 05/10/24 14:45 05/10/24 12:20 Oxygen Flow Rate (L/min) 2 Oxygen Delivery Method Room Air Weight: 71.1 kg Body Mass Index (BMI) 26.1 Intake & Output: Intake and Output for Last 24 Hours 05/08/24 05/09/24 05/10/24 23:59 23:59 23:59 Intake Total 1150 / 1350 1300 / 1300 50 / 50 Output Total 1800 / 1800 Balance 1150 / 1350 -500 / -500 50 / 50 Lab / Micro Data 05/07/24 04:10 05/07/24 04:10 Labs: Laboratory Results - last 24 hr 05/09/24 16:29: POC Glucose 127 H 05/09/24 21:39: POC Glucose 206 H 05/10/24 06:28: POC Glucose 88 05/10/24 12:25: POC Glucose 149 H 05/10/24 13:16: POC Glucose 184 H Physical Exam Narrative Alert awake no obvious distress no pallor no icterus no JVD s1s2 no murmurs lungs clear abdomen soft no organomegaly Lower extremities are bandaged no cyanosis Assessment & Plan Assessment/Plan (1) ESRD (end stage renal disease) on dialysis: PLAN: On hemodialysis, Tuesday, Tuesday, Tuesday. HD tomorrow Anemia. stable. JORGE with HD tomorrow Access. IJ tunneled dialysis catheter.
[2024-05-10] MEDS: Insulin Lispro 100 UNIT/ML INSULN.PEN SC ×2 (15:10→21:41)
[2024-05-10] MEDS: Calcium Acetate 667 MG Capsule PO (15:15)
--- NOTE | 2024-05-10 15:56 | PN.HOSP_ITS ---
Reason for Visit Reason for Visit: Diagnoses Type 2 diabetes mellitus with diabetic polyneuropathy (05/04/24) Non-pressure chronic 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 layer exposed (05/04/24) Non-pressure chronic ulcer of other part of left foot with fat layer exposed (05/04/24) Charcot's joint, right ankle and foot (05/04/24) Charcot's joint, left ankle and foot (05/04/24) Other acquired deformities of right foot (05/04/24) Other acquired deformities of left foot (05/04/24) Short Achilles tendon (acquired), right ankle (05/04/24) Short Achilles tendon (acquired), left ankle (05/04/24) Other acute osteomyelitis, right ankle and foot (05/04/24) Other acute osteomyelitis, left ankle and foot (05/04/24) End stage renal disease (05/04/24) Other malaise (05/04/24) Adult failure to thrive (05/04/24) Hyperglycemia, unspecified (05/04/24) [facility] (current) use of insulin (05/04/24) Dependence on renal dialysis (05/04/24) Subjective Subjective Patient was seen and examined today, she underwent endoscopic gastrocnemius recession surgery today on the right and left lower extremity along with peroneus brevis tendon transfer on both the right and the left sides. Patient will undergo dialysis tomorrow, social media campaign manager is informed me that they have an accepting senior living for the patient whenever she is medically stable. Objective Data Objective Data Vital Signs: Vital Signs Temp Pulse Resp BP Pulse Ox O2 Del Method O2 Flow Rate 97.9 F 66 18 147/78 H 94 Room Air 2 05/10/24 14:45 05/10/24 15:16 05/10/24 14:45 05/10/24 14:45 05/10/24 14:45 05/10/24 14:45 05/10/24 12:20 Oxygen Flow Rate (L/min) 2 Oxygen Delivery Method Room Air Weight: 71.1 kg Body Mass Index (BMI) 26.1 Intake & Output: Intake and Output for Last 24 Hours 05/08/24 05/09/24 05/10/24 23:59 23:59 23:59 Intake Total 1150 / 1350 1300 / 1300 50 / 50 Output Total 1800 / 1800 Balance 1150 / 1350 -500 / -500 50 / 50 Lab / Micro Data 05/07/24 04:10 05/07/24 04:10 Labs: Laboratory Results - last 24 hr 05/09/24 16:29: POC Glucose 127 H 05/09/24 21:39: POC Glucose 206 H 05/10/24 06:28: POC Glucose 88 05/10/24 12:25: POC Glucose 149 H 05/10/24 13:16: POC Glucose 184 H Physical Exam Narrative alert, oriented x3, no apparent distress, average body habitus and healthy appearing General Appearance: cooperative, well kempt and well developed Orientation / Consciousness: awake, oriented to person, oriented to place and oriented to time HEENT normocephalic and moist oral mucous membranes Eyes PERRL, EOMs intact bilaterally and conjunctivae normal Neck supple, no JVD, thyroid normal and no carotid bruits General: trachea midline Resp normal respiratory effort, no retractions, no use of accessory muscles and clear to auscultation bilaterally Auscultation: Negative for rales, rhonchi or wheezes Cardio regular rate, regular rhythm, S1 normal heart sound, S2 normal heart sound, no murmurs, no rub and no gallops GI normal to inspection, nondistended, normoactive bowel sounds, soft to palpation, non-tender and non-distended Extremity Both lower extremities were wrapped with surgical dressing and splint Skin no rashes or lesions noted General Skin Exam: no breakdown Neuro oriented x3, CN's II-XII intact bilaterally, moves all extremities, no focal motor deficits and no sensory deficits noted Sensorium / Orientation: awake and alert Speech: speech normal Psych affect normal Assessment & Plan Assessment/Plan (1) Debility: PLAN: Plan 1. Debility-patient will continue to be seen by PT and OT, she will most likely need placement in a jail facility at least for short-term skilled services. #2 end-stage renal disease requiring dialysis-nephrology is participating in her care, she will be undergoing dialysis 3 times a week while she is in the hospital #3 type 2 [id number] will be performed, sliding scale insulin will be administered as needed, patient is on scheduled long-acting and short acting insulin. #4 essential hypertension-patient's blood pressure will be monitored and her medications will be adjusted as needed #5 [id number] unclear, again patient will need to go to an extended care facility at least for short-term skilled services. #6 anemia of chronic renal disease-patient's labs will be monitored, she does not require transfusion at this time #7 chronic neuropathic ulcerations of right and left foot along with short Achilles tendon (acquired) right and left ankle-patient is postop day 0 for corrective podiatric surgery, podiatry is participating in her care Total clinical time spent by myself addressing the patient's medical issues, reviewing all of her data, and collaborating with patient's care team: 35 minutes Charges/Coding Visit Charges Inpatient E&M: 40217 Subs Hosp L2
[2024-05-10] MEDS: DiphenhydrAMINE 25 MG Capsule PO (18:46)
[2024-05-10] MEDS: oxyCODONE 5 MG Tablet PO (18:46)
[2024-05-10] MEDS: Acetaminophen 325 MG Tablet 650 MG PO (18:47)
[2024-05-10] MEDS: MELATONIN 3 MG TABLET PO (20:21)
[2024-05-10 22:08] LABS: Bedside Glucose 418 mg/dL (74-106)
[2024-05-10 23:58] LABS: Bedside Glucose 337 mg/dL (74-106)
[2024-05-11] VITALS (15 sets, daily range): BP systolic 1–310; BP diastolic 49–82; PULSE 40–73; RESP 14–18; TEMP 36.1–36.6; O2SAT 97–100; BMI 26.1; BMI 25.7
[2024-05-11] MEDS: DiphenhydrAMINE 25 MG Capsule PO ×2 (01:01→21:23)
[2024-05-11] MEDS: Acetaminophen 325 MG Tablet 650 MG PO ×3 (01:02→22:41)
[2024-05-11] MEDS: oxyCODONE 5 MG Tablet PO ×4 (01:02→22:42)
[2024-05-11 03:54] LABS: Bedside Glucose 278 mg/dL (74-106)
--- NOTE | 2024-05-11 07:15 | PCM.PN.HOSP ---
Reason for Visit Reason for Visit: Diagnoses Type 2 diabetes mellitus with diabetic polyneuropathy (05/04/24) Non-pressure chronic 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 layer exposed (05/04/24) Non-pressure chronic ulcer of other part of left foot with fat layer exposed (05/04/24) Charcot's joint, right ankle and foot (05/04/24) Charcot's joint, left ankle and foot (05/04/24) Other acquired deformities of right foot (05/04/24) Other acquired deformities of left foot (05/04/24) Short Achilles tendon (acquired), right ankle (05/04/24) Short Achilles tendon (acquired), left ankle (05/04/24) Other acute osteomyelitis, right ankle and foot (05/04/24) Other acute osteomyelitis, left ankle and foot (05/04/24) End stage renal disease (05/04/24) Other malaise (05/04/24) Adult failure to thrive (05/04/24) Hyperglycemia, unspecified (05/04/24) [facility] (current) use of insulin (05/04/24) Dependence on renal dialysis (05/04/24) Subjective Subjective Patient is a 56-year-old lady with complicated past medical history end-stage renal disease on hemodialysis, diabetes mellitus type 2, admitted with with adult failure to thrive. Patient underwent corrective surgery for chronic neuropathic ulcerations of right and left foot along with short Achilles tendon (acquired) right and left ankle on 05/10/2024. Objective Data Objective Data Vital Signs: Vital Signs Temp Pulse Resp BP Pulse Ox O2 Del Method O2 Flow Rate 98 F 71 16 110/55 L 99 Room Air 2 05/11/24 00:57 05/11/24 00:57 05/11/24 00:57 05/11/24 00:57 05/11/24 00:57 05/11/24 00:57 05/10/24 12:20 Oxygen Flow Rate (L/min) 2 Oxygen Delivery Method Room Air Weight: 71.1 kg Body Mass Index (BMI) 26.1 Intake & Output: Intake and Output for Last 24 Hours 05/09/24 05/10/24 05/11/24 23:59 23:59 23:59 Intake Total 1300 / 1300 50 / 50 Output Total 1800 / 1800 Balance -500 / -500 50 / 50 Lab / Micro Data 05/07/24 04:10 05/07/24 04:10 Labs: Laboratory Results - last 24 hr 05/10/24 12:25: POC Glucose 149 H 05/10/24 13:16: POC Glucose 184 H 05/10/24 21:19: POC Glucose 418 H 05/10/24 23:39: POC Glucose 337 H 05/11/24 03:36: POC Glucose 278 H Radiography Diagnostic Testing: Radiology Impression Foot X-Ray 05/10/24 08:20 IMPRESSION: 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 SKIN: No Rash PSYCH; Flat affect Assessment & Plan Assessment/Plan (1) Debility: PLAN: Plan Patient is a 56-year-old lady with complicated past medical history end-stage renal disease on hemodialysis, diabetes mellitus type 2, admitted with with adult failure to thrive. Patient underwent corrective surgery for chronic neuropathic ulcerations of right and left foot along with short Achilles tendon (acquired) right and left ankle on 05/10/2024. 1. Physical deconditioning - Requested for PT OT eval and social media director to assist with discharge planning 2. Status post corrective surgery for chronic neuropathic ulcerations of right and left foot along with short Achilles tendon (acquired) right and left ankle on 05/10/2024.. Requested for PT OT eval as well as pain management 3. End-stage renal disease ? On hemodialysis consult placed to nephrology patient dialysis days on Wednesdays and Fridays 4.? Anemia - Secondary to chronic disorder monitoring H&H and transfuse if patient becomes symptomatic or hemoglobin falls below? 7 5.? Diabetes mellitus type II ?With complications including Charcot foot as well as diabetic foot ulcers.? Patient is on long acting insulin, Accu-Cheks a.c. and at bedtime and covered with sliding scale insulin 6.? Depression with anxiety ? Discontinue patient antidepressants 7.? Dyslipidemia -Patient is on statin therapy, continued at home dose 8.? GERD ? On PPI 9.? Chronic back pain ?Patient is managed with outpatient epidural steroid injection 10. Hypothyroidism - Patient is on levothyroxine home dose continued 11.? DVT prophylaxis - Heparin SC Time spent in the patient's overall evaluation,decision-making process, review of diagnostic data, adjustment of management, discussion with other providers, nursing nursing and ancillary staff involved in patient's care documentation, 36 minutes Charges/Coding Visit Charges Inpatient E&M: 22054 Subs Hosp L2
[2024-05-11] MEDS: Insulin Lispro 100 UNIT/ML INSULN.PEN SC ×4 (07:28→21:22)
[2024-05-11] MEDS: Heparin 10,000 UNITS/10 ML Vial IV (09:06)
[2024-05-11] MEDS: 0.9% Normal Saline 1,000 ML IV.SOLN. 1000 ML OPERA.SITE (09:06)
[2024-05-11] MEDS: 0.9% Saline Lock 10 ML Syringe IV (09:06)
[2024-05-11] MEDS: PureFlow B 2K Dialysis Soln 1 BAG 6 BAG PF (09:06)
[2024-05-11] MEDS: Epoetin Alfa epbx 10,000 UNIT/ML 20000 UNIT IV (09:07)
--- NOTE | 2024-05-11 11:00 | CASEMGMT ---
Addendum entered by Georgia Williamson 05/11/24 11:05: Social Work- SW updated Elijah Wyman to start precert when updates were sent. ERIN Johnson Original Note: Social Work: Awaiting precert. Updates sent to facility via [facility]. Pt updated on status and expresses understanding. Plan: Elijah Wyman; pending precert ERIN Johnson
--- NOTE | 2024-05-11 11:31 | WOUNDNOTE ---
Dressings are to remain in place to bilateral lower legs/feet. the MYLA wraps were coming off. talked with Dr Julian. this nurse able to reapply the MYLA wraps. removed wraps down to the soft cast splint. padded the plantar feet well and wrapped with kerlix and cotton roll. reapplied the MYLA wraps from the base of the toes to just below the knees. pt tolerated well.
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
[2024-05-11] MEDS: Atorvastatin Calcium 40 MG Tablet PO (12:02)
[2024-05-11] MEDS: Pantoprazole Sodium 40 MG Tablet PO (12:04)
[2024-05-11] MEDS: Paroxetine 20 MG Tablet PO (12:04)
[2024-05-11] MEDS: buPROPion (XL) 150 MG TABLET.XL PO (12:04)
[2024-05-11] MEDS: Calcium Acetate 667 MG Capsule PO ×2 (12:05→16:38)
--- NOTE | 2024-05-11 12:57 | PCM.PROGNOTE ---
Subjective Subjective 1 day postop. More pain left lower extremity when attempting to work with therapy and then right. Denies constitutional symptoms. Pain controlled at rest. No other complaints. Objective Data Objective Data Vital Signs: Vital Signs Temp Pulse Resp BP Pulse Ox O2 Del Method O2 Flow Rate 97.6 F L 67 16 118/49 L 100 Room Air 2 05/11/24 11:00 05/11/24 11:00 05/11/24 11:00 05/11/24 11:00 05/11/24 11:00 05/11/24 11:00 05/10/24 12:20 Oxygen Flow Rate (L/min) 2 Oxygen Delivery Method Room Air Weight: 70 kg Body Mass Index (BMI) 25.7 Intake & Output: Intake and Output for Last 24 Hours 05/09/24 05/10/24 05/11/24 23:59 23:59 23:59 Intake Total 1300 / 1300 50 / 50 300 / 300 Output Total 1800 / 1800 3020 / 3020 Balance -500 / -500 50 / 50 -2720 / -2720 Lab / Micro Data 05/07/24 04:10 05/07/24 04:10 Labs: Laboratory Results - last 24 hr 05/10/24 13:16: POC Glucose 184 H 05/10/24 21:19: POC Glucose 418 H 05/10/24 23:39: POC Glucose 337 H 05/11/24 03:36: POC Glucose 278 H Radiography Diagnostic Testing: Radiology Impression Foot X-Ray 05/10/24 08:20 IMPRESSION: 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 Neurovascular status intact to toes 1 through 4 bilateral foot. Assessment & Plan Assessment/Plan (1) Charcot's joint, left ankle and foot: PLAN: Exam performed. Splint will remain intact until follow-up next week. Patient can heel weight-bear in splint with cast boot assisted by walker under supervision. Recommend SNF placement. Will follow intraoperative cultures; however, intraoperatively the bone was removed did not appear grossly or acutely infected. My opinion is that the patient is stable for discharge once medically cleared. (2) Charcot's joint, right ankle and foot:
--- NOTE | 2024-05-11 13:38 | PN.RENAL_ITS ---
Subjective Subjective Sitting in chair, no complaints. Underwent hemodialysis earlier today. Objective Data Objective Data Vital Signs: Vital Signs Temp Pulse Resp BP Pulse Ox O2 Del Method O2 Flow Rate 97.6 F L 67 16 118/49 L 100 Room Air 2 05/11/24 11:00 05/11/24 11:00 05/11/24 11:00 05/11/24 11:00 05/11/24 11:00 05/11/24 11:00 05/10/24 12:20 Oxygen Flow Rate (L/min) 2 Oxygen Delivery Method Room Air Weight: 70 kg Body Mass Index (BMI) 25.7 Intake & Output: Intake and Output for Last 24 Hours 05/09/24 05/10/24 05/11/24 23:59 23:59 23:59 Intake Total 1300 / 1300 50 / 50 300 / 300 Output Total 1800 / 1800 3020 / 3020 Balance -500 / -500 50 / 50 -2720 / -2720 Lab / Micro Data 05/07/24 04:10 05/07/24 04:10 Labs: Laboratory Results - last 24 hr 05/10/24 13:16: POC Glucose 184 H 05/10/24 21:19: POC Glucose 418 H 05/10/24 23:39: POC Glucose 337 H 05/11/24 03:36: POC Glucose 278 H Radiography Diagnostic Testing: Radiology Impression Foot X-Ray 05/10/24 08:20 IMPRESSION: 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 Patient underwent hemodialysis today, tolerated around 1.5 L fluid removal. Likely next dialysis will be on Tuesday unless acute need arises. Anemia of chronic disease. Hemoglobin stable. JORGE with HD today Hypertension; blood pressures acceptable.
--- NOTE | 2024-05-11 14:55 | CASEMGMT ---
Social Work- spoke with Eliel Coyle CM, to provide update on placement status. Jonna would like to be advised of d/c status. Myra, COMPUTER FIELD TECHNICIAN
[2024-05-11] MEDS: Calcitriol 0.25 MCG Capsule 0.5 MCG PO (16:39)
[2024-05-11 16:40] LABS: Bedside Glucose 299 mg/dL (74-106)
[2024-05-11 17:57] LABS: Bedside Glucose 308 mg/dL (74-106)
[2024-05-11] MEDS: MELATONIN 3 MG TABLET PO (21:23)
[2024-05-11 22:12] LABS: Bedside Glucose 332 mg/dL (74-106)
[2024-05-12] VITALS (8 sets, daily range): BP systolic 102–130; BP diastolic 48–68; PULSE 67–75; RESP 14–16; TEMP 36.3–36.8; O2SAT 96–98; BMI 28.9
[2024-05-12] MEDS: oxyCODONE 5 MG Tablet PO ×3 (04:36→18:40)
[2024-05-12] MEDS: Acetaminophen 325 MG Tablet 650 MG PO ×3 (04:36→18:40)
[2024-05-12] MEDS: Levothyroxine 25 MCG TABLET PO (04:36)
[2024-05-12] MEDS: Insulin Lispro 100 UNIT/ML INSULN.PEN SC ×4 (06:17→21:41)
[2024-05-12 06:36] LABS: Bedside Glucose 279 mg/dL (74-106)
--- NOTE | 2024-05-12 06:54 | PN.HOSP_ITS ---
Reason for Visit Reason for Visit: Diagnoses Type 2 diabetes mellitus with diabetic polyneuropathy (05/04/24) Non-pressure chronic 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 layer exposed (05/04/24) Non-pressure chronic ulcer of other part of left foot with fat layer exposed (05/04/24) Charcot's joint, right ankle and foot (05/04/24) Charcot's joint, left ankle and foot (05/04/24) Other acquired deformities of right foot (05/04/24) Other acquired deformities of left foot (05/04/24) Short Achilles tendon (acquired), right ankle (05/04/24) Short Achilles tendon (acquired), left ankle (05/04/24) Other acute osteomyelitis, right ankle and foot (05/04/24) Other acute osteomyelitis, left ankle and foot (05/04/24) End stage renal disease (05/04/24) Other malaise (05/04/24) Adult failure to thrive (05/04/24) Hyperglycemia, unspecified (05/04/24) [facility] (current) use of insulin (05/04/24) Dependence on renal dialysis (05/04/24) Subjective Subjective Patient seen, significant drop in her hemoglobin to 5.6. An order has been given for patient to be transfused 1 unit PRBC with post transfusion H&H ordered. Objective Data Objective Data Vital Signs: Vital Signs Temp Pulse Resp BP Pulse Ox O2 Del Method O2 Flow Rate 97.5 F L 73 16 126/61 H 98 Room Air 2 05/12/24 02:43 05/12/24 02:43 05/12/24 02:43 05/12/24 02:43 05/12/24 02:43 05/12/24 02:43 05/10/24 12:20 Oxygen Flow Rate (L/min) 2 Oxygen Delivery Method Room Air Weight: 78.7 kg Body Mass Index (BMI) 28.9 Intake & Output: Intake and Output for Last 24 Hours 05/10/24 05/11/24 05/12/24 23:59 23:59 23:59 Intake Total 50 / 50 600 / 600 Output Total 3120 / 3120 150 / 150 Balance 50 / 50 -2520 / -2520 -150 / -150 Lab / Micro Data 05/12/24 07:15 05/12/24 07:15 Labs: Laboratory Results - last 24 hr 05/11/24 12:11: POC Glucose 299 H 05/11/24 16:31: POC Glucose 308 H 05/11/24 21:20: POC Glucose 332 H 05/12/24 06:16: POC Glucose 279 H Micro: Microbiology 05/10/24 10:18 Bone - 5th Toe Gram Stain - Final 05/10/24 10:18 Bone - 5th Toe Gram Stain - Final Physical Exam Narrative GENERAL: Patient is tearful HEENT: Atraumatic; normocephalic EYES; Anicteric, Normal Conjunctiva NECK; supple, normal thyroid, RESPIRATORY: Diminished to auscultation CARDIOVASCULAR: Regular S1 S2, GI: soft, normoactive bowel sounds, : No Renal angle tenderness; EXTREMITIES: Lower extremities in surgical dressing MUSCULOSKELETAL: no muscle wasting NEURO: Awake; no lateralizing signs. SKIN: No Rash PSYCH; Flat affect Assessment & Plan Assessment/Plan (1) Debility: PLAN: Plan Patient is a 56-year-old lady with complicated past medical history end-stage renal disease on hemodialysis, diabetes mellitus type 2, admitted with with adult failure to thrive. Patient underwent corrective surgery for chronic neuropathic ulcerations of right and left foot along with short Achilles tendon (acquired) right and left ankle on 05/10/2024. 1. Status post corrective surgery for chronic neuropathic ulcerations of right and left foot along with short Achilles tendon (acquired) right and left ankle on 05/10/2024.. Requested for PT OT eval as well as pain management 2. End-stage renal disease ? On hemodialysis consult placed to nephrology patient dialysis days on Wednesdays and Fridays 3.? Anemia - Secondary to chronic disorder monitoring H&H and transfuse if patient becomes symptomatic or hemoglobin falls below? 7 Patient seen, significant drop in her hemoglobin to 5.6. An order has been given for patient to be transfused 1 unit PRBC with post transfusion H&H ordered. 4. Physical deconditioning - Requested for PT OT eval and social insurance adviser to assist with discharge planning 5.? Diabetes mellitus type II ?With complications including Charcot foot as well as diabetic foot ulcers.? Patient is on long acting insulin, Accu-Cheks a.c. and at bedtime and covered with sliding scale insulin 6.? Depression with anxiety ? Discontinue patient antidepressants 7.? Dyslipidemia -Patient is on statin therapy, continued at home dose 8.? GERD ? On PPI 9.? Chronic back pain ?Patient is managed with outpatient epidural steroid injection 10. Hypothyroidism - Patient is on levothyroxine home dose continued 11.? DVT prophylaxis - Heparin SC Time spent in the patient's overall evaluation,decision-making process, review of diagnostic data, adjustment of management, discussion with other providers, nursing nursing and ancillary staff involved in patient's care documentation, 36 minutes Charges/Coding Visit Charges Inpatient E&M: 80047 Subs Hosp L2
[2024-05-12 07:38] LABS: Absolute Lymphocyte Count 1.02 X10^3/uL (0.83-4.51); Absolute Neutrophil Count 6.2 X10^3/uL (2.0-7.7); Basophil# 0.02 X10^3/uL; Basophil% 0.3 % (0-1); Eosinophil# 0.07 X10^3/uL; Eosinophils% 0.9 % (0-5); Hematocrit 18.9 % (37-47); Hemoglobin 5.6 g/dL (12.0-15.0); Lymphocyte # 1.02 X10^3/ul (0.83-4.51); Mean Corp Hgb Conc 29.6 g/dL (32-36); Mean Corpuscular Volume 97.9 fL (81-99); Mean Platelet Vol. 10.9 fl (6.2-12.0); Monocyte# 0.47 X10^3/uL; NRBC Flagged by Analyzer 0 % (0-5); Neutrophil # 6.15 X10^3/uL (2.7-7.7); Neutrophil % 78.4 % (47-70); POSITIVE COUNT YES; Platelet Count 180 K/mm3 (150-450); RBC Distribution Width CV 17.3 % (11.6-14.6); RBC Distribution Width SD 60.3 fl (35.1-43.9); Red Blood Count 1.93 M/mm3 (4.2-5.4); White Blood Count 7.8 K/mm3 (4.4-11.0)
[2024-05-12] MEDS: Calcium Acetate 667 MG Capsule PO ×3 (07:43→16:30)
[2024-05-12] MEDS: Aspirin 81 MG TAB.CHEW PO (07:44)
[2024-05-12] MEDS: Folic Acid 1 MG Tablet PO (07:45)
[2024-05-12] MEDS: Ferrous Sulfate 325 MG Tablet PO (07:45)
[2024-05-12 08:21] LABS: Anion Gap 5 (5-15); BUN 64 mg/dL (7-18); BUN/Creat Ratio 12.1 RATIO (10-20); Calcium,Total 8.1 mg/dL (8.5-10.1); Chloride 104 mmol/L (98-107); Creatinine, Serum 5.31 mg/dL (0.55-1.02); EST Glomerular Filtration Rate 9 mL/min (>60); Est Glom Filt Rate - Afr Amer 11 mL/min (>60); Estimated Creatinine Clearance 11.97 ml/min; Glucose 271 mg/dL (74-106); Magnesium 1.9 mg/dL (1.6-2.6); Potassium 5.1 mmol/L (3.5-5.1); Sodium Level 135 mmol/L (136-145)
[2024-05-12] MEDS: Carvedilol 25 MG Tablet PO ×2 (08:57→21:41)
[2024-05-12] MEDS: Atorvastatin Calcium 40 MG Tablet PO (08:57)
[2024-05-12] MEDS: amLODIPine 5 MG Tablet PO (08:58)
[2024-05-12] MEDS: Paroxetine 20 MG Tablet PO (08:59)
[2024-05-12] MEDS: buPROPion (XL) 150 MG TABLET.XL PO (08:59)
[2024-05-12] MEDS: Pantoprazole Sodium 40 MG Tablet PO (08:59)
[2024-05-12 11:45] LABS: Bedside Glucose 235 mg/dL (74-106)
--- NOTE | 2024-05-12 12:52 | PCM.PN.REN ---
Subjective Subjective Follow-up on end-stage renal disease Feels okay Hemoglobin below goal getting blood transfusion however difficulty with IV access Objective Data Objective Data Vital Signs: Vital Signs Temp Pulse Resp BP Pulse Ox O2 Del Method O2 Flow Rate 97.9 F 69 16 107/48 L 96 Room Air 2 05/12/24 07:36 05/12/24 07:36 05/12/24 07:36 05/12/24 07:36 05/12/24 07:36 05/12/24 07:36 05/10/24 12:20 Oxygen Flow Rate (L/min) 2 Oxygen Delivery Method Room Air Weight: 78.7 kg Body Mass Index (BMI) 28.9 Intake & Output: Intake and Output for Last 24 Hours 05/10/24 05/11/24 05/12/24 23:59 23:59 23:59 Intake Total 50 / 50 600 / 600 Output Total 3120 / 3120 150 / 150 Balance 50 / 50 -2520 / -2520 -150 / -150 Lab / Micro Data 05/12/24 07:15 05/12/24 07:15 Labs: Laboratory Results - last 24 hr 05/11/24 12:11: POC Glucose 299 H 05/11/24 16:31: POC Glucose 308 H 05/11/24 21:20: POC Glucose 332 H 05/12/24 06:16: POC Glucose 279 H 05/12/24 07:15: WBC 7.8, RBC 1.93 L, Hgb 5.6 L*, Hct 18.9 L, MCV 97.9, MCH 29.0, MCHC 29.6 L, RDW Std Deviation 60.3 H, RDW Coeff of Fior 17.3 H, Plt Count 180, MPV 10.9, Immature Gran % (Auto) 1.400 H, Neut % (Auto) 78.4 H, Lymph % (Auto) 13.0 L, [place] % (Auto) 6.0, Eos % (Auto) 0.9, Baso % (Auto) 0.3, Absolute Neuts (auto) 6.2, Absolute Lymphs (auto) 1.02, Nucleated RBC % 0, Diff Path Review May foll, Sodium 135 L, Potassium 5.1, Chloride 104, Carbon Dioxide 26.0, Anion Gap 5, BUN 64 H, Creatinine 5.31 H, Estim Creat Clear Calc 11.97, Est GFR (MDRD) Af Amer 11 L, Est GFR (MDRD) Non-Af 9 L, BUN/Creatinine Ratio 12.1, Glucose 271 H, Calcium 8.1 L, Phosphorus 3.0, Magnesium 1.9 05/12/24 09:15: Blood Type O POSITIVE, Antibody Screen NEGATIVE, Crossmatch See Detail 05/12/24 11:21: POC Glucose 235 H Micro: Microbiology 05/10/24 10:18 Bone - 5th Toe Gram Stain - Final 05/10/24 10:18 Bone - 5th Toe Wound Culture - Preliminary Staphylococcus aureus Gram negative elinor 05/10/24 10:18 Bone - 5th Toe Gram Stain - Final 05/10/24 10:18 Bone - 5th Toe Wound Culture - Preliminary Staphylococcus aureus GNR lactose casino enforcement agent Physical Exam Narrative Pleasant awake and responsive answers question appropriately Left tunneled dialysis catheter Lower extremity wrapped Assessment & Plan Assessment/Plan (1) ESRD (end stage renal disease) on dialysis: PLAN: On hemodialysis, Tuesday, Tuesday, Tuesday at [facility]. Anemia of chronic disease. Hypertension; blood pressures acceptable. PLAN: Plan Patient hemodialysis yesterday Noted of difficulty with IV access. Given the fact that she needs blood transfusion we will see if our dialysis nurses available to access her tunneled access catheter for temporary use for blood transfusion. Otherwise next treatment on Tuesday. Will need JORGE with HD
[2024-05-12 16:55] LABS: Bedside Glucose 151 mg/dL (74-106)
[2024-05-12] MEDS: DiphenhydrAMINE 25 MG Capsule PO (17:49)
[2024-05-12 20:00] LABS: Bedside Glucose 285 mg/dL (74-106)
[2024-05-12 20:46] LABS: Hematocrit 22.5 % (37-47); Mean Corp Hgb Conc 31.1 g/dL (32-36); Mean Corpuscular Hgb 29.5 pg (27.0-32.0); Mean Corpuscular Volume 94.9 fL (81-99); Mean Platelet Vol. 10.6 fl (6.2-12.0); Platelet Count 198 K/mm3 (150-450); RBC Distribution Width CV 18.5 % (11.6-14.6); RBC Distribution Width SD 62.3 fl (35.1-43.9); Red Blood Count 2.37 M/mm3 (4.2-5.4); White Blood Count 10.8 K/mm3 (4.4-11.0)
[2024-05-12 20:47] LABS: POSITIVE COUNT NO; POSITIVE DIFFERENTIAL NO; POSITIVE MORPHOLOGY NO; Scan Indicated on CBC? Y/N NO
[2024-05-12 22:05] LABS: Bedside Glucose 216 mg/dL (74-106)
[2024-05-13] VITALS (7 sets, daily range): BP systolic 106–132; BP diastolic 45–69; PULSE 70–74; RESP 16; TEMP 36.4–36.8; O2SAT 93–96; BMI 28.5
[2024-05-13] MEDS: oxyCODONE 5 MG Tablet PO ×3 (00:40→18:26)
[2024-05-13] MEDS: Acetaminophen 325 MG Tablet 650 MG PO ×3 (00:40→18:27)
[2024-05-13] MEDS: DiphenhydrAMINE 25 MG Capsule PO ×2 (00:40→21:08)
[2024-05-13] MEDS: Levothyroxine 25 MCG TABLET PO (06:23)
[2024-05-13 06:43] LABS: Bedside Glucose 129 mg/dL (74-106)
--- NOTE | 2024-05-13 07:27 | PCM.PN.HOSP ---
Reason for Visit Reason for Visit: Diagnoses Type 2 diabetes mellitus with diabetic polyneuropathy (05/04/24) Non-pressure chronic 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 layer exposed (05/04/24) Non-pressure chronic ulcer of other part of left foot with fat layer exposed (05/04/24) Charcot's joint, right ankle and foot (05/04/24) Charcot's joint, left ankle and foot (05/04/24) Other acquired deformities of right foot (05/04/24) Other acquired deformities of left foot (05/04/24) Short Achilles tendon (acquired), right ankle (05/04/24) Short Achilles tendon (acquired), left ankle (05/04/24) Other acute osteomyelitis, right ankle and foot (05/04/24) Other acute osteomyelitis, left ankle and foot (05/04/24) End stage renal disease (05/04/24) Other malaise (05/04/24) Adult failure to thrive (05/04/24) Hyperglycemia, unspecified (05/04/24) intermediate (current) use of insulin (05/04/24) Dependence on renal dialysis (05/04/24) Subjective Subjective Patient seen. Complains of being constipated, nursing staff however reports patient having had huge bowel movement Objective Data Objective Data Vital Signs: Vital Signs Temp Pulse Resp BP Pulse Ox O2 Del Method O2 Flow Rate 98.3 F 74 16 124/54 H 93 Room Air 2 05/13/24 07:24 05/13/24 07:24 05/13/24 07:24 05/13/24 07:24 05/13/24 07:24 05/13/24 07:24 05/10/24 12:20 Oxygen Flow Rate (L/min) 2 Oxygen Delivery Method Room Air Weight: 77.6 kg Body Mass Index (BMI) 28.5 Intake & Output: Intake and Output for Last 24 Hours 05/11/24 05/12/24 05/13/24 23:59 23:59 23:59 Intake Total 600 / 600 Output Total 3120 / 3120 150 / 150 Balance -2520 / -2520 -149 / -149 Lab / Micro Data 05/13/24 06:50 05/12/24 07:15 Labs: Laboratory Results - last 24 hr 05/11/24 07:17: POC Glucose 285 H 05/12/24 07:15: WBC 7.8, RBC 1.93 L, Hgb 5.6 L*, Hct 18.9 L, MCV 97.9, MCH 29.0, MCHC 29.6 L, RDW Std Deviation 60.3 H, RDW Coeff of Fior 17.3 H, Plt Count 180, MPV 10.9, Immature Gran % (Auto) 1.400 H, Neut % (Auto) 78.4 H, Lymph % (Auto) 13.0 L, [place] % (Auto) 6.0, Eos % (Auto) 0.9, Baso % (Auto) 0.3, Absolute Neuts (auto) 6.2, Absolute Lymphs (auto) 1.02, Nucleated RBC % 0, Diff Path Review February, Sodium 135 L, Potassium 5.1, Chloride 104, Carbon Dioxide 26.0, Anion Gap 5, BUN 64 H, Creatinine 5.31 H, Estim Creat Clear Calc 11.97, Est GFR (MDRD) Af Amer 11 L, Est GFR (MDRD) Non-Af 9 L, BUN/Creatinine Ratio 12.1, Glucose 271 H, Calcium 8.1 L, Phosphorus 3.0, Magnesium 1.9 05/12/24 09:15: Blood Type O POSITIVE, Antibody Screen NEGATIVE, Crossmatch See Detail 05/12/24 11:21: POC Glucose 235 H 05/12/24 16:28: POC Glucose 151 H 05/12/24 17:24: WBC 10.8, RBC 2.37 L, Hgb 7.0 L, Hct 22.5 L, MCV 94.9, MCH 29.5, MCHC 31.1 L D, RDW Std Deviation 62.3 H, RDW Coeff of Fior 18.5 H, Plt Count 198, MPV 10.6 05/12/24 21:40: POC Glucose 216 H 05/13/24 06:22: POC Glucose 129 H Micro: Microbiology 05/10/24 10:18 Bone - 5th Toe Gram Stain - Final 05/10/24 10:18 Bone - 5th Toe Wound Culture - Final Staphylococcus aureus Enterobacter cloacae complex 05/10/24 10:18 Bone - 5th Toe Gram Stain - Final 05/10/24 10:18 Bone - 5th Toe Wound Culture - Preliminary Staphylococcus aureus Gram negative elinor Physical Exam Narrative GENERAL: Patient is cooperative HEENT: Atraumatic; normocephalic EYES; Anicteric, Normal Conjunctiva NECK; supple, normal thyroid, RESPIRATORY: Diminished to auscultation CARDIOVASCULAR: Regular S1 S2, GI: soft, normoactive bowel sounds, : No Renal angle tenderness; EXTREMITIES: Lower extremities in surgical dressing MUSCULOSKELETAL: no muscle wasting NEURO: Awake; no lateralizing signs. SKIN: No Rash PSYCH; Flat affect Assessment & Plan Assessment/Plan (1) Debility: PLAN: Plan Patient is a 56-year-old lady with complicated past medical history end-stage renal disease on hemodialysis, diabetes mellitus type 2, admitted with with adult failure to thrive. Patient underwent corrective surgery for chronic neuropathic ulcerations of right and left foot along with short Achilles tendon (acquired) right and left ankle on 05/10/2024. 1. Status post corrective surgery for chronic neuropathic ulcerations of right and left foot along with short Achilles tendon (acquired) right and left ankle on 05/10/2024.. Requested for PT OT eval as well as pain management 2. End-stage renal disease ? On hemodialysis consult placed to nephrology patient dialysis days on Wednesdays and Fridays 3.? Anemia - Secondary to chronic disorder monitoring H&H and transfuse if patient becomes symptomatic or hemoglobin falls below? 7 Patient seen, significant drop in her hemoglobin to 5.6. An order has been given for patient to be transfused 1 unit PRBC with post transfusion H&H ordered. ? 05/13/2024; hemoglobin came up to 7.0 will repeat H&H in a.m. and if less than 7 will transfuse with dialysis in the morning 4. Physical deconditioning - Requested for PT OT eval and administrator social welfare to assist with discharge planning 5.? Diabetes mellitus type II ?With complications including Charcot foot as well as diabetic foot ulcers.? Patient is on long acting insulin, Accu-Cheks a.c. and at bedtime and covered with sliding scale insulin 6.? Depression with anxiety ? Discontinue patient antidepressants 7.? Dyslipidemia -Patient is on statin therapy, continued at home dose 8.? GERD ? On PPI 9.? Chronic back pain ?Patient is managed with outpatient epidural steroid injection 10. Hypothyroidism - Patient is on levothyroxine home dose continued 11.? DVT prophylaxis - Heparin SC Time spent in the patient's overall evaluation,decision-making process, review of diagnostic data, adjustment of management, discussion with other providers, nursing nursing and ancillary staff involved in patient's care documentation, 36 minutes Charges/Coding Visit Charges Inpatient E&M: 09110 Subs Hosp L2
[2024-05-13] MEDS: Aspirin 81 MG TAB.CHEW PO (07:34)
[2024-05-13] MEDS: Folic Acid 1 MG Tablet PO (07:34)
[2024-05-13] MEDS: Calcium Acetate 667 MG Capsule PO ×3 (07:34→16:40)
[2024-05-13 07:40] LABS: Absolute Lymphocyte Count 1.04 X10^3/uL (0.83-4.51); Absolute Neutrophil Count 7.9 X10^3/uL (2.0-7.7); Basophil# 0.05 X10^3/uL; Basophil% 0.5 % (0-1); Eosinophil# 0.21 X10^3/uL; Eosinophils% 2.1 % (0-5); Hematocrit 22.6 % (37-47); Lymphocyte # 1.04 X10^3/ul (0.83-4.51); Lymphocyte % 10.5 % (19-41); Mean Corpuscular Hgb 29.7 pg (27.0-32.0); Mean Corpuscular Volume 95.8 fL (81-99); Mean Platelet Vol. 11.1 fl (6.2-12.0); Monocyte# 0.64 X10^3/uL; Monocyte% 6.4 % (0-10); NRBC Flagged by Analyzer 0 % (0-5); Neutrophil % 79.6 % (47-70); Platelet Count 224 K/mm3 (150-450); RBC Distribution Width CV 18.6 % (11.6-14.6); RBC Distribution Width SD 64.5 fl (35.1-43.9); Red Blood Count 2.36 M/mm3 (4.2-5.4); White Blood Count 9.9 K/mm3 (4.4-11.0)
[2024-05-13] MEDS: Carvedilol 25 MG Tablet PO ×2 (09:31→21:07)
[2024-05-13] MEDS: amLODIPine 5 MG Tablet PO (09:32)
[2024-05-13] MEDS: Atorvastatin Calcium 40 MG Tablet PO (09:32)
[2024-05-13] MEDS: Paroxetine 20 MG Tablet PO (09:33)
[2024-05-13] MEDS: Pantoprazole Sodium 40 MG Tablet PO (09:33)
[2024-05-13] MEDS: buPROPion (XL) 150 MG TABLET.XL PO (09:34)
[2024-05-13] MEDS: Polyethylene Glycol 3350 17 GM PACKET PO (09:39)
[2024-05-13 11:18] LABS: Anion Gap 9 (5-15); BUN 77 mg/dL (7-18); BUN/Creat Ratio 12.4 RATIO (10-20); Calcium,Total 8.7 mg/dL (8.5-10.1); Chloride 104 mmol/L (98-107); Creatinine, Serum 6.23 mg/dL (0.55-1.02); EST Glomerular Filtration Rate 7 mL/min (>60); Est Glom Filt Rate - Afr Amer 9 mL/min (>60); Estimated Creatinine Clearance 10.14 ml/min; Glucose 149 mg/dL (74-106); Potassium 5.9 mmol/L (3.5-5.1); Sodium Level 135 mmol/L (136-145)
[2024-05-13] MEDS: Insulin Lispro 100 UNIT/ML INSULN.PEN SC ×2 (11:37→21:08)
[2024-05-13 11:51] LABS: Bedside Glucose 191 mg/dL (74-106)
[2024-05-13 16:51] LABS: Bedside Glucose 109 mg/dL (74-106)
[2024-05-13] MEDS: hydrALAZINE 50 MG Tablet PO (21:07)
[2024-05-13] MEDS: MELATONIN 3 MG TABLET PO (21:08)
[2024-05-13 22:29] LABS: Bedside Glucose 172 mg/dL (74-106)
[2024-05-14] VITALS (18 sets, daily range): BP systolic 99–293; BP diastolic 45–79; PULSE 67–81; RESP 14–18; TEMP 36.1–37; O2SAT 94–100; BMI 28.5; BMI 27.7; BMI 27.1
[2024-05-14] MEDS: Acetaminophen 325 MG Tablet 650 MG PO ×2 (00:59→19:33)
[2024-05-14] MEDS: oxyCODONE 5 MG Tablet PO ×4 (01:00→23:32)
[2024-05-14 06:25] LABS: Absolute Lymphocyte Count 0.46 X10^3/uL (0.83-4.51); Absolute Neutrophil Count 8.1 X10^3/uL (2.0-7.7); Basophil# 0.04 X10^3/uL; Basophil% 0.4 % (0-1); Eosinophil# 0.09 X10^3/uL; Hematocrit 20.6 % (37-47); Hemoglobin 6.2 g/dL (12.0-15.0); Lymphocyte # 0.46 X10^3/ul (0.83-4.51); Mean Corp Hgb Conc 30.1 g/dL (32-36); Mean Corpuscular Hgb 29.1 pg (27.0-32.0); Mean Corpuscular Volume 96.7 fL (81-99); Mean Platelet Vol. 11.3 fl (6.2-12.0); Monocyte# 0.52 X10^3/uL; Monocyte% 5.6 % (0-10); NRBC Flagged by Analyzer 0 % (0-5); Neutrophil # 8.13 X10^3/uL (2.7-7.7); Neutrophil % 87.6 % (47-70); POSITIVE DIFFERENTIAL YES; Platelet Count 200 K/mm3 (150-450); RBC Distribution Width CV 18.1 % (11.6-14.6); RBC Distribution Width SD 62.8 fl (35.1-43.9); Red Blood Count 2.13 M/mm3 (4.2-5.4); White Blood Count 9.3 K/mm3 (4.4-11.0)
[2024-05-14] MEDS: Levothyroxine 25 MCG TABLET PO (07:01)
--- NOTE | 2024-05-14 07:10 | PN.HOSP_ITS ---
Reason for Visit Reason for Visit: Diagnoses Type 2 diabetes mellitus with diabetic polyneuropathy (05/04/24) Non-pressure chronic 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 layer exposed (05/04/24) Non-pressure chronic ulcer of other part of left foot with fat layer exposed (05/04/24) Charcot's joint, right ankle and foot (05/04/24) Charcot's joint, left ankle and foot (05/04/24) Other acquired deformities of right foot (05/04/24) Other acquired deformities of left foot (05/04/24) Short Achilles tendon (acquired), right ankle (05/04/24) Short Achilles tendon (acquired), left ankle (05/04/24) Other acute osteomyelitis, right ankle and foot (05/04/24) Other acute osteomyelitis, left ankle and foot (05/04/24) End stage renal disease (05/04/24) Other malaise (05/04/24) Adult failure to thrive (05/04/24) Hyperglycemia, unspecified (05/04/24) jail (current) use of insulin (05/04/24) Dependence on renal dialysis (05/04/24) Subjective Subjective Patient hemoglobin down to 6.2 and order has been given for patient to be transfused 1 unit PRBC. Also ordered stool for guaiac and consulted GI Dr. Romano for possible endoscopic evaluation given her persistently low hemoglobin level Objective Data Objective Data Vital Signs: Vital Signs Temp Pulse Resp BP Pulse Ox O2 Del Method O2 Flow Rate 98 F 68 16 99/79 94 Room Air 2 05/14/24 00:57 05/14/24 07:01 05/14/24 00:57 05/14/24 07:01 05/14/24 00:57 05/14/24 00:57 05/10/24 12:20 Oxygen Flow Rate (L/min) 2 Oxygen Delivery Method Room Air Weight: 77.8 kg Body Mass Index (BMI) 28.5 Intake & Output: Intake and Output for Last 24 Hours 05/12/24 05/13/24 05/14/24 23:59 23:59 23:59 Intake Total 1 / Output Total 150 / 150 Balance -149 / -149 Lab / Micro Data 05/14/24 05:40 05/14/24 05:40 Labs: Laboratory Results - last 24 hr 05/13/24 06:50: WBC 9.9, RBC 2.36 L, Hgb 7.0 L, Hct 22.6 L, MCV 95.8, MCH 29.7, MCHC 31.0 L, RDW Std Deviation 64.5 H, RDW Coeff of Fior 18.6 H, Plt Count 224, MPV 11.1, Immature Gran % (Auto) 0.900, Neut % (Auto) 79.6 H, Lymph % (Auto) 10.5 L, [place] % (Auto) 6.4, Eos % (Auto) 2.1, Baso % (Auto) 0.5, Absolute Neuts (auto) 7.9 H, Absolute Lymphs (auto) 1.04, Nucleated RBC % 0, Sodium 135 L, P otassium 5.9 H, Chloride 104, Carbon Dioxide 22.0, Anion Gap 9, BUN 77 H, C reatinine 6.23 H, Estim Creat Clear Calc 10.14, Est GFR (MDRD) Af Amer 9 L, Est GFR (MDRD) Non-Af 7 L, BUN/Creatinine Ratio 12.4, Glucose 149 H, Calcium 8.7 05/13/24 11:33: POC Glucose 191 H 05/13/24 16:24: POC Glucose 109 H 05/13/24 21:03: POC Glucose 172 H 05/14/24 05:40: WBC 9.3, RBC 2.13 L, Hgb 6.2 L, Hct 20.6 L, MCV 96.7, MCH 29.1, MCHC 30.1 L, RDW Std Deviation 62.8 H, RDW Coeff of Fior 18.1 H, Plt Count 200, MPV 11.3, Immature Gran % (Auto) 0.400, Neut % (Auto) 87.6 H, Lymph % (Auto) 5.0 L, [facility] % (Auto) 5.6, Eos % (Auto) 1.0, Baso % (Auto) 0.4, Absolute Neuts (auto) 8.1 H, Absolute Lymphs (auto) 0.46 L, Nucleated RBC % 0 Micro: Microbiology 05/10/24 10:18 Bone - 5th Toe Gram Stain - Final 05/10/24 10:18 Bone - 5th Toe Wound Culture - Final Staphylococcus aureus Alcaligenes faecalis ssp faeca 05/10/24 10:18 Bone - 5th Toe Anaerobic Culture - Preliminary 05/10/24 10:18 Bone - 5th Toe Gram Stain - Final 05/10/24 10:18 Bone - 5th Toe Wound Culture - Final Staphylococcus aureus Enterobacter cloacae complex 05/10/24 10:18 Bone - 5th Toe Anaerobic Culture - Preliminary Physical Exam Narrative GENERAL: Patient is cooperative HEENT: Atraumatic; normocephalic EYES; Anicteric, Normal Conjunctiva NECK; supple, normal thyroid, RESPIRATORY: Diminished to auscultation CARDIOVASCULAR: Regular S1 S2, GI: soft, normoactive bowel sounds, : No Renal angle tenderness; EXTREMITIES: Lower extremities in surgical dressing MUSCULOSKELETAL: no muscle wasting NEURO: Awake; no lateralizing signs. SKIN: No Rash PSYCH; Flat affect Assessment & Plan Assessment/Plan (1) Debility: PLAN: Plan Patient is a 56-year-old lady with complicated past medical history end-stage renal disease on hemodialysis, diabetes mellitus type 2, admitted with with adult failure to thrive. Patient underwent corrective surgery for chronic neuropathic ulcerations of right and left foot along with short Achilles tendon (acquired) right and left ankle on 05/10/2024. 1. Status post corrective surgery for chronic neuropathic ulcerations of right and left foot along with short Achilles tendon (acquired) right and left ankle on 05/10/2024.. Requested for PT OT eval as well as pain management 2. End-stage renal disease ? On hemodialysis consult placed to nephrology patient dialysis days on Wednesdays and Fridays 3.? Anemia - Secondary to chronic disorder monitoring H&H and transfuse if patient becomes symptomatic or hemoglobin falls below? 7 Patient seen, significant drop in her hemoglobin to 5.6. An order has been given for patient to be transfused 1 unit PRBC with post transfusion H&H ordered. ? 05/13/2024; hemoglobin came up to 7.0 will repeat H&H in a.m. and if less than 7 will transfuse with dialysis in the morning ? 05/14/2024; Patient hemoglobin down to 6.2 and order has been given for patient to be transfused 1 unit PRBC. Also ordered stool for guaiac and consulted GI Dr. Romano for possible endoscopic evaluation given her persistently low hemoglobin level 4. Physical deconditioning - Requested for PT OT eval and clinical social work aide to assist with discharge planning 5.? Diabetes mellitus type II ?With complications including Charcot foot as well as diabetic foot ulcers.? Patient is on long acting insulin, Accu-Cheks a.c. and at bedtime and covered with sliding scale insulin 6.? Depression with anxiety ? Discontinue patient antidepressants 7.? Dyslipidemia -Patient is on statin therapy, continued at home dose 8.? GERD ? On PPI 9.? Chronic back pain ?Patient is managed with outpatient epidural steroid injection 10. Hypothyroidism - Patient is on levothyroxine home dose continued 11.? DVT prophylaxis - Heparin SC Time spent in the patient's overall evaluation,decision-making process, review of diagnostic data, adjustment of management, discussion with other providers, nursing nursing and ancillary staff involved in patient's care documentation, 36 minutes Charges/Coding Visit Charges Inpatient E&M: 52661 Subs Hosp L2
[2024-05-14 07:13] LABS: Anion Gap 8 (5-15); BUN 91 mg/dL (7-18); BUN/Creat Ratio 13.1 RATIO (10-20); Calcium,Total 8.7 mg/dL (8.5-10.1); Chloride 101 mmol/L (98-107); Creatinine, Serum 6.94 mg/dL (0.55-1.02); EST Glomerular Filtration Rate 7 mL/min (>60); Est Glom Filt Rate - Afr Amer 8 mL/min (>60); Estimated Creatinine Clearance 9.11 ml/min; Glucose 154 mg/dL (74-106); Potassium 6.6 mmol/L (3.5-5.1); Sodium Level 131 mmol/L (136-145)
[2024-05-14 07:21] LABS: Bedside Glucose 139 mg/dL (74-106)
[2024-05-14] MEDS: 0.9% Normal Saline 1,000 ML IV.SOLN. 1000 ML OPERA.SITE (08:06)
[2024-05-14] MEDS: PureFlow B 2K Dialysis Soln 1 BAG 6 BAG PF (08:06)
[2024-05-14] MEDS: 0.9% Saline Lock 10 ML Syringe IV ×2 (08:08→23:33)
--- NOTE | 2024-05-14 09:58 | CASEMGMT ---
Discharge Planning Updates sent to via [facility]. Rekha Moore DC Planning Asst.
[2024-05-14] MEDS: Epoetin Alfa epbx 10,000 UNIT/ML 20000 UNIT IV (10:09)
[2024-05-14] MEDS: Heparin 10,000 UNITS/10 ML Vial IV (10:10)
--- NOTE | 2024-05-14 11:01 | WOUNDNOTE ---
wound photo: right foot
--- NOTE | 2024-05-14 11:02 | WOUNDNOTE ---
wound photo: right plantar foot
--- NOTE | 2024-05-14 11:02 | WOUNDNOTE ---
wound photo: left foot
--- NOTE | 2024-05-14 11:03 | NUR.TO.PHY ---
wound photo: left plantar foot
[2024-05-14] MEDS: Paroxetine 20 MG Tablet PO (11:08)
[2024-05-14] MEDS: buPROPion (XL) 150 MG TABLET.XL PO (11:08)
[2024-05-14] MEDS: Calcium Acetate 667 MG Capsule PO ×2 (11:09→16:44)
[2024-05-14] MEDS: Atorvastatin Calcium 40 MG Tablet PO (11:09)
[2024-05-14] MEDS: Aspirin 81 MG TAB.CHEW PO (11:09)
[2024-05-14] MEDS: Pantoprazole Sodium 40 MG Tablet PO (11:09)
[2024-05-14] MEDS: Polyethylene Glycol 3350 17 GM PACKET PO (11:10)
[2024-05-14] MEDS: Folic Acid 1 MG Tablet PO (11:10)
--- NOTE | 2024-05-14 11:17 | WOUNDNOTE ---
wound photo: left plantar foot
[2024-05-14 11:39] LABS: Bedside Glucose 131 mg/dL (74-106)
--- NOTE | 2024-05-14 12:03 | CASEMGMT ---
Discharge Planning Call placed to to check on status of precert. Admissions is on vacation and precert was not submitted on Tuesday. They will start that today. SW updated. Rekha Moore DC Planning Asst.
--- NOTE | 2024-05-14 12:41 | PCM.PN.REN ---
Subjective Subjective Patient resting in bed. Tolerated hemodialysis earlier this morning. Received PRBC with dialysis. Objective Data Objective Data Vital Signs: Vital Signs Temp Pulse Resp BP Pulse Ox O2 Del Method O2 Flow Rate 97.7 F L 75 14 145/65 H 97 Room Air 2 05/14/24 09:20 05/14/24 10:38 05/14/24 10:38 05/14/24 10:38 05/14/24 09:20 05/14/24 12:00 05/10/24 12:20 Oxygen Flow Rate (L/min) 2 Oxygen Delivery Method Room Air Weight: 75.6 kg Body Mass Index (BMI) 27.7 Intake & Output: Intake and Output for Last 24 Hours 05/12/24 05/13/24 05/14/24 23:59 23:59 23:59 Intake Total 1 / 1 0 / 0 Output Total 150 / 150 4400 / 4400 Balance -149 / -149 -4400 / -4400 Lab / Micro Data 05/14/24 05:40 05/14/24 05:40 Labs: Laboratory Results - last 24 hr 05/12/24 09:15: Blood Type O POSITIVE, Antibody Screen NEGATIVE, Crossmatch See Detail 05/13/24 16:24: POC Glucose 109 H 05/13/24 21:03: POC Glucose 172 H 05/14/24 05:40: WBC 9.3, RBC 2.13 L, Hgb 6.2 L, Hct 20.6 L, MCV 96.7, MCH 29.1, MCHC 30.1 L, RDW Std Deviation 62.8 H, RDW Coeff of Fior 18.1 H, Plt Count 200, MPV 11.3, Immature Gran % (Auto) 0.400, Neut % (Auto) 87.6 H, Lymph % (Auto) 5.0 L, [place] % (Auto) 5.6, Eos % (Auto) 1.0, Baso % (Auto) 0.4, Absolute Neuts (auto) 8.1 H, Absolute Lymphs (auto) 0.46 L, Nucleated RBC % 0, Sodium 131 L, Potassium 6.6 H*, Chloride 101, Carbon Dioxide 22.0, Anion Gap 8, BUN 91 H, Creatinine 6.94 H, Estim Creat Clear Calc 9.11, Est GFR (MDRD) Af Amer 8 L, Est GFR (MDRD) Non-Af 7 L, BUN/Creatinine Ratio 13.1, Glucose 154 H, Calcium 8.7 05/14/24 07:00: POC Glucose 139 H 05/14/24 11:02: POC Glucose 131 H Micro: Microbiology 05/10/24 10:18 Bone - 5th Toe Gram Stain - Final 05/10/24 10:18 Bone - 5th Toe Wound Culture - Final Staphylococcus aureus Alcaligenes faecalis ssp faeca 05/10/24 10:18 Bone - 5th Toe Anaerobic Culture - Preliminary 05/10/24 10:18 Bone - 5th Toe Gram Stain - Final 05/10/24 10:18 Bone - 5th Toe Wound Culture - Final Staphylococcus aureus Enterobacter cloacae complex 05/10/24 10:18 Bone - 5th Toe Anaerobic Culture - Preliminary Physical Exam Narrative Alert and orient x 3, no apparent distress S1, S2, RRR Lung sounds clear Abdomen soft, nontender Bilateral legs wrapped Tunneled dialysis catheter dressing clean, dry and intact Assessment & Plan Assessment/Plan (1) ESRD (end stage renal disease) on dialysis: PLAN: Plan - ESRD; undergoes hemodialysis Tuesday at [facility], followed by Dr. Flynn. Patient underwent hemodialysis today. -Anemia of chronic disease; receives JORGE and iron with dialysis. Hemoglobin dropped 6.2 and received PRBC with dialysis today. GI consulted. Check stool for occult blood. -Status post corrective surgery for chronic neuropathic ulcerations on right and left foot -History of hypertension; blood pressures acceptable
--- NOTE | 2024-05-14 13:05 | PCM.PROGNOTE ---
Subjective Subjective Patient 4 days postop. Denies constitutional symptoms. Patient had low hemoglobin over the weekend. No other complaints. Objective Data Objective Data Vital Signs: Vital Signs Temp Pulse Resp BP Pulse Ox O2 Del Method O2 Flow Rate 97.7 F L 75 14 145/65 H 97 Room Air 2 05/14/24 09:20 05/14/24 10:38 05/14/24 10:38 05/14/24 10:38 05/14/24 09:20 05/14/24 12:00 05/10/24 12:20 Oxygen Flow Rate (L/min) 2 Oxygen Delivery Method Room Air Weight: 73.845 kg Body Mass Index (BMI) 27.1 Intake & Output: Intake and Output for Last 24 Hours 05/12/24 05/13/24 05/14/24 23:59 23:59 23:59 Intake Total 120 / 120 Output Total 150 / 150 4400 / 4400 Balance -149 / -149 -4280 / -4280 Lab / Micro Data 05/14/24 05:40 05/14/24 05:40 Labs: Laboratory Results - last 24 hr 05/12/24 09:15: Blood Type O POSITIVE, Antibody Screen NEGATIVE, Crossmatch See Detail 05/13/24 16:24: POC Glucose 109 H 05/13/24 21:03: POC Glucose 172 H 05/14/24 05:40: WBC 9.3, RBC 2.13 L, Hgb 6.2 L, Hct 20.6 L, MCV 96.7, MCH 29.1, MCHC 30.1 L, RDW Std Deviation 62.8 H, RDW Coeff of Fior 18.1 H, Plt Count 200, MPV 11.3, Immature Gran % (Auto) 0.400, Neut % (Auto) 87.6 H, Lymph % (Auto) 5.0 L, [place] % (Auto) 5.6, Eos % (Auto) 1.0, Baso % (Auto) 0.4, Absolute Neuts (auto) 8.1 H, Absolute Lymphs (auto) 0.46 L, Nucleated RBC % 0, Sodium 131 L, Potassium 6.6 H*, Chloride 101, Carbon Dioxide 22.0, Anion Gap 8, BUN 91 H, Creatinine 6.94 H, Estim Creat Clear Calc 9.11, Est GFR (MDRD) Af Amer 8 L, Est GFR (MDRD) Non-Af 7 L, BUN/Creatinine Ratio 13.1, Glucose 154 H, Calcium 8.7 05/14/24 07:00: POC Glucose 139 H 05/14/24 11:02: POC Glucose 131 H Micro: Microbiology 05/10/24 10:18 Bone - 5th Toe Gram Stain - Final 05/10/24 10:18 Bone - 5th Toe Wound Culture - Final Staphylococcus aureus Alcaligenes faecalis ssp faeca 05/10/24 10:18 Bone - 5th Toe Anaerobic Culture - Preliminary 05/10/24 10:18 Bone - 5th Toe Gram Stain - Final 05/10/24 10:18 Bone - 5th Toe Wound Culture - Final Staphylococcus aureus Enterobacter cloacae complex 05/10/24 10:18 Bone - 5th Toe Anaerobic Culture - Preliminary Physical Exam Narrative Neurovascular status unchanged bilateral lower extremity.\ Incision sites macerated slightly but well-approximated with intact agustin. Mild sanguinous drainage noted. Plantar foot wounds demonstrate mild. Mild periwound maceration with stable granular clean bases. No equina varus deformity noted. No sign of DVT. Assessment & Plan Assessment/Plan (1) ESRD (end stage renal disease) on dialysis: PLAN: Plan Exam performed. Patient 4 days postop bilateral lower extremity fifth metatarsal base excision and peroneus brevis tendon transfer. Bone cultures positive for Staph aureus, Enterobacter, alcaligines Recommend infectious disease consult Bone pathology pending Patient heel weightbearing in a splint which was reapplied today to bilateral lower extremities, cast boot, assisted by walker Plan for SNF placement Patient being worked up for anemia, no residual acute bleed noted to bilateral lower extremity at this time
[2024-05-14 13:43] LABS: Pathologist Review Reviewed
[2024-05-14] MEDS: Gabapentin 100 MG Capsule PO ×2 (13:44→23:32)
[2024-05-14] MEDS: hydrALAZINE 50 MG Tablet PO ×2 (13:44→20:39)
[2024-05-14] MEDS: Calcitriol 0.25 MCG Capsule 0.5 MCG PO (16:24)
--- NOTE | 2024-05-14 16:24 | CON.PCM.GI_ITS ---
HPI Consult Data Date of Consult: 05/14/24 HPI Narrative Reason for Consultation: Anemia HPI Narrative: DIONY ROCHA, is a 58 F who initially presented to [facility] ED in the late evening of 05/02. Patient presented via EMS stating she wanted to stop dialysis and that she was ready to meet [place]. On arrival, she was placed under suicide precautions and crisis was called in to evaluate the patient. Crisis felt that the patient would require placement. [facility] slip was filled out and patient was initially accepted to [facility] for both psychiatric and medical care. However, [facility] called back several hours later after reviewing her chart and stated she was too medically complex further facility. ED staff spoke with patient's family over the phone and they noted that patient lives on her own but her functional status has been declining and they are very concerned about her being able to take care of herself at home. On reevaluation of the patient, patient denied any suicidal ideation. She was admitted with a diagnosis of bilateral plantar lateral midfoot wounds in setting of diabetic neuropathy and charcot foot. She is postop bilateral lower extremity fifth metatarsal base excision and peroneus brevis tendon transfer. Her bone cultures positive for Staph aureus, Enterobacter, alcaligines. An infectious disease consult was recommended. Labs notable for hemoglobin 9.0 (at baseline), otherwise unremarkable. She also ESRD secondary to uncontrolled DM. She undergoes hemodialysis Tuesday Patient underwent hemodialysis today. She has a diagnosis of anemia of chronic disease. She receives JORGE and iron with dialysis. Hemoglobin dropped 6.2 and received PRBC with dialysis today. I was asked to see her because of her low hgb and occult + stools. [facility] Medical History Debility Charcot's joint, right ankle and foot Charcot's joint, left ankle and foot Non-pressure chronic 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 layer exposed Non-pressure chronic ulcer of other part of left foot with fat layer exposed Drowsiness Mental status, decreased Carotid artery stenosis MSSA bacteremia ESRD on hemodialysis Osteomyelitis Anemia in chronic illness Type 2 diabetes mellitus Foot osteomyelitis, left Chronic renal disease, stage 4, severely decreased glomerular filtration rate (GFR) between 15-29 mL/min/1.73 square meter Acute on chronic anemia Chronic ulcer of right foot with necrosis of bone Chronic kidney disease, stage 4 (severe) Diabetes mellitus with diabetic polyneuropathy Diabetic foot ulcers Chronic kidney disease, stage 3b Cellulitis Acute lumbar radiculopathy Essential hypertension Adult failure to thrive COVID-19 (08/28/21) Chronic ulcer of right leg with fat layer exposed Ulcer of left foot with fat layer exposed Chronic ulcer of right foot with fat layer exposed Hyperparathyroidism, secondary renal Iron deficiency anemia Bilateral edema of lower extremity Chronic foot pain Charcot's joint of right foot Diabetes Non-smoker Myocardial infarct Hypertension TIA (transient ischemic attack) Amputation foot, bilat 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 Ulcer of left foot with necrosis of muscle Ulcer of left foot with muscle involvement without evidence of necrosis Anxiety and depression Diabetic infection of left foot Delayed wound healing Non-compliance Diabetic polyneuropathy Ischemic cardiomyopathy Obesity (BMI 30.0-34.9) Acquired varus deformity of left foot Acquired varus deformity of right foot Atherosclerosis of [place] coronary artery of [place] heart without angina pectoris Hemoglobin A1c greater than 9.0% NSTEMI (non-ST elevated myocardial infarction) (09/20/18) GERD (gastroesophageal reflux disease) HLD (hyperlipidemia) Back pain, chronic RLS (restless legs syndrome) Home Medications ?Medication ?Instructions ?Recorded ?Last Taken ?Type paroxetine HCl 20 mg tablet 20 mg PO DAILY DEPRESSION 07/07/21 04/07/22 History bupropion HCl 150 mg 24 hr tablet, 150 mg PO DAILY mood 02/04/22 04/07/22 History extended release sennosides 8.6 mg-docusate sodium 2 tab PO BID PRN PRN Constipation 04/24/22 Unknown Rx 50 mg tablet (Stool #0 tabs Softener-Stimulant Laxative) ascorbic acid (vitamin C) 500 mg 500 mg PO BID supplement 05/05/22 Unknown History tablet (Vitamin C) clopidogrel 75 mg tablet 75 mg PO DAILY prevent stroke 07/19/22 Unknown History ferrous sulfate 325 mg (65 mg 325 mg PO .three times a week 07/19/22 Unknown History iron) tablet anemia pantoprazole 40 mg tablet,delayed 40 mg PO BIDCM GERD 07/19/22 Unknown History release insulin glargine-yfgn 100 unit/mL 5 unit (0.05 mL) subcut QHS blood 07/21/22 Unknown Rx (3 mL) subcutaneous pen sugar #15 mL insulin lispro 100 unit/mL See Protocol subcut TIDAC #0 mL 07/21/22 Unknown Rx subcutaneous pen (Humalog KwikPen (U-100) Insulin) cyclobenzaprine 5 mg tablet 5 mg PO TID PRN muscle spasm #21 11/26/23 Unknown Rx tabs gabapentin 100 mg capsule 100 mg PO .COMPLEX PRN pain 11/26/23 Unknown History Mircera See Rx Instructions .Route 12/16/23 Unknown History .COMPLEX dialysis Venofer iron 12/16/23 Unknown History acetaminophen 325 mg capsule 325 mg PO Q4H PRN fever or pain 12/16/23 Unknown History amlodipine 5 mg tablet 5 mg PO DAILY bp 12/16/23 Unknown History antacid extra assorted fruit 750 mg PO .every 4 hours PRN tums 12/16/23 Unknown History tablets calcitriol 0.5 mcg capsule 0.5 mcg PO .COMPLEX on dialysis 12/16/23 Unknown History calcium acetate(phosphat bind) 667 676 mg PO TID is on dialysis 12/16/23 Unknown History mg capsule cloNIDine See Rx Instructions .Route 12/16/23 Unknown History .COMPLEX dialysis diphenhydramine 25 mg IV itching 12/16/23 Unknown History folic acid 800 mcg tablet 0.8 mg PO DAILY supplement 12/16/23 Unknown History hydralazine 25 mg tablet 25 mg PO TID bp 12/16/23 Unknown History insulin aspart U-100 6 unit subcut TID blood glucose 12/16/23 Unknown History insulin aspart U-100 100 unit/mL subcut 12/16/23 Unknown History (3 mL) subcutaneous pen insulin glargine 100 unit/mL (3 20 unit subcut DAILY blood glucose 12/16/23 Unknown History mL) subcutaneous pen (Lantus Solostar U-100 Insulin) isosorbide dinitrate 10 mg tablet 20 mg PO TID bp and heart 12/16/23 Unknown History levothyroxine 25 mcg tablet 25 mcg PO DAILY thyroid 12/16/23 Unknown History lidocaine-silicone, adhesive topical pain 12/16/23 Unknown History loperamide 2 mg capsule 2 mg PO Q4H PRN loose stool 12/16/23 Unknown History (Anti-Diarrheal (loperamide)) melatonin 5 mg capsule 5 mg PO .bedtime sleep 12/16/23 Unknown History nitroglycerin 0.4 mg sublingual 0.4 mg sublingual Q5M chest pain 12/16/23 Unknown History tablet (Nitrostat) olanzapine 5 mg tablet 5 mg PO QHS sleep 12/16/23 Unknown History ondansetron 4 mg disintegrating 4 mg PO DAILY PRN nausea and 12/16/23 Unknown History tablet vomiting pramipexole dihydrochloride 1.5 mg PO BID unknown 12/16/23 Unknown History promethazine 25 mg tablet 25 mg PO Q4H PRN nausea and 12/16/23 Unknown History vomiting aspirin 81 mg capsule 81 mg PO DAILY #30 caps 12/26/23 Unknown Rx cefepime 1 gram/50 mL in dextrose 1 g IV .as directed 12/26/23 Unknown Rx 5 % intravenous piggyback atorvastatin 40 mg tablet 40 mg PO DAILY 03/18/24 Unknown History buprenorphine 5 mcg/hour weekly 1 patch topical QWEEK 03/18/24 Unknown History transdermal patch carvedilol 25 mg tablet 25 mg PO BID 03/18/24 Unknown History clindamycin HCl 150 mg capsule 450 mg (3 x 150 mg) PO TID 7 days 04/19/24 Unknown Rx #63 CAPSULES clindamycin HCl 150 mg capsule 450 mg (3 x 150 mg) PO TID 10 days 04/25/24 Unknown Rx #90 caps Allergy/AdvReac Type Severity Reaction Status Date / Time oxycodone (From OxyContin) Allergy sob Verified 05/05/24 04:11 Penicillins Allergy swelling Verified 04/25/24 18:14 in throat vancomycin Allergy Itching Verified 04/25/24 18:14 metronidazole AdvReac Nausea Verified 04/25/24 18:14 Family History Mother Diabetes CVA (cerebral vascular accident) Brother CAD (coronary artery disease) CABG X 3 Cancer testicular Diabetes Brother CAD (coronary artery disease) CABG X3 Diabetes Brother CAD (coronary artery disease) Stents Diabetes Sister CAD (coronary artery disease) CABG x 3 CVA (cerebral vascular accident) Diabetes Surgical History History of History of foot surgery History of bilateral carpal tunnel release History of rotator cuff surgery History of coronary artery stent placement (12/31/20) Social History household members: none number of children: 2 current occupational status: disabled Smoking Status: Never smoker alcohol intake: never substance use type: does not use caffeine: Yes Type: carbonated beverages Number of servings: 2 ROS Constitutional Constitutional: Reports daytime sleepiness; Denies change in weight or headache(s) Eyes Eyes: Denies acute decrease in peripheral vision, change in eye color or discongugate gaze ENT HEENT: Denies bleeding gums, change in voice or epistaxis Cardiovascular Cardiovascular: Denies abdominal edema, abdominal pain or chest pain at rest Respiratory/Chest Respiratory/Chest: Denies change in phlegm color, chest congestion or dyspnea Gastrointestinal Gastrointestinal: Denies belching, bloating or constipation Physical Exam Narrative GENERAL: Patient is cooperative HEENT: Atraumatic; normocephalic EYES; Anicteric, Normal Conjunctiva NECK; supple, normal thyroid, RESPIRATORY: Diminished to auscultation CARDIOVASCULAR: Regular S1 S2, GI: soft, normoactive bowel sounds, : No Renal angle tenderness; EXTREMITIES: Lower extremities in surgical dressing MUSCULOSKELETAL: no muscle wasting NEURO: Awake; no lateralizing signs. SKIN: No Rash PSYCH; Flat affect Lab / Micro Data 05/14/24 05:40 05/14/24 05:40 Labs: Laboratory Results - last 24 hr 05/12/24 07:15: Diff Path Review Reviewed 05/12/24 09:15: Blood Type O POSITIVE, Antibody Screen NEGATIVE, Crossmatch See Detail 05/13/24 16:24: POC Glucose 109 H 05/13/24 21:03: POC Glucose 172 H 05/14/24 05:40: WBC 9.3, RBC 2.13 L, Hgb 6.2 L, Hct 20.6 L, MCV 96.7, MCH 29.1, MCHC 30.1 L, RDW Std Deviation 62.8 H, RDW Coeff of Fior 18.1 H, Plt Count 200, MPV 11.3, Immature Gran % (Auto) 0.400, Neut % (Auto) 87.6 H, Lymph % (Auto) 5.0 L, [place] % (Auto) 5.6, Eos % (Auto) 1.0, Baso % (Auto) 0.4, Absolute Neuts (auto) 8.1 H, Absolute Lymphs (auto) 0.46 L, Nucleated RBC % 0, Sodium 131 L, Potassium 6.6 H*, Chloride 101, Carbon Dioxide 22.0, Anion Gap 8, BUN 91 H, Creatinine 6.94 H, Estim Creat Clear Calc 9.11, Est GFR (MDRD) Af Amer 8 L, Est GFR (MDRD) Non-Af 7 L, BUN/Creatinine Ratio 13.1, Glucose 154 H, Calcium 8.7 05/14/24 07:00: POC Glucose 139 H 05/14/24 11:02: POC Glucose 131 H Micro: Microbiology 05/10/24 10:18 Bone - 5th Toe Gram Stain - Final 05/10/24 10:18 Bone - 5th Toe Wound Culture - Final Staphylococcus aureus Alcaligenes faecalis ssp faeca 05/10/24 10:18 Bone - 5th Toe Anaerobic Culture - Preliminary 05/10/24 10:18 Bone - 5th Toe Gram Stain - Final 05/10/24 10:18 Bone - 5th Toe Wound Culture - Final Staphylococcus aureus Enterobacter cloacae complex 05/10/24 10:18 Bone - 5th Toe Anaerobic Culture - Preliminary Assessment & Plan Assessment/Plan (1) Adult failure to thrive: (2) Hyperglycemia: (3) ESRD (end stage renal disease) on dialysis: PLAN: Plan Patient is a 58-year-old female who presented [facility] ED on 05/04/2024 with adult failure to thrive, bone infection, anemia of chronic disease with acute blood loss anemia. Acute on chronic blood loss anemia ? Patient has never had a colonoscopy in the past. She does take aspirin with puts her at risk for upper GI bleed. Despite her being on iron and getting Epo, along with blood transfusions she still is persistently anemic. She should undergo upper and lower endoscopy to evaluate upper lower GI tract. She should also have studies for the celiac disease, inflammatory bowel disease, protein electrophoresis, hemolysis workup including LDH, indirect bilirubin and possible hemoglobin electrophoresis. Charges/Coding Visit Charges Inpatient E&M: 75531 Init Hosp L3
[2024-05-14 16:45] LABS: Bedside Glucose 108 mg/dL (74-106)
[2024-05-14] MEDS: Metoclopramide 10 MG/2 ML Vial 5 MG IV ×2 (17:22→23:33)
[2024-05-14] MEDS: Bisacodyl 5 MG Tablet 20 MG PO (17:22)
[2024-05-14] MEDS: DiphenhydrAMINE 25 MG Capsule PO (18:17)
[2024-05-14] MEDS: Polyethylene Glycol 3350 BOWEL PREP PO (20:32)
[2024-05-14 22:13] LABS: Bedside Glucose 140 mg/dL (74-106)
[2024-05-14] MEDS: Menthol/Lanolin/Calamine/Znox 113 GM Tube 1 APPLIC TOPICAL (23:33)
[2024-05-15] VITALS (15 sets, daily range): BP systolic 105–148; BP diastolic 45–84; PULSE 71–84; RESP 14–18; TEMP 36.7–37.6; O2SAT 90–98; BMI 27.8
--- NOTE | 2024-05-15 00:57 | EKG12_ITS ---
Test Reason : CP/PALPITATIONS Blood Pressure : / mmHG Vent. Rate : 068 BPM Atrial Rate : 068 BPM P-R Int : 178 ms QRS Dur : 096 ms QT Int : 434 ms P-R-T Axes : 036 011 022 degrees QTc Int : 461 ms Normal sinus rhythm Normal ECG When compared with ECG of 15-MAY-2024 05:14, No significant change was found Confirmed by MARIELENA DELVALLE, SINDY ([id number]), general expeditor DAVID CARCAMO ([id number]) on 05/21/2024 10:20:43 AM Referred By: MARGIE Confirmed By:MARISOL PEGUERO MD
[2024-05-15 05:28] LABS: Absolute Lymphocyte Count 0.49 X10^3/uL (0.83-4.51); Absolute Neutrophil Count 8.9 X10^3/uL (2.0-7.7); Basophil# 0.04 X10^3/uL; Basophil% 0.4 % (0-1); Eosinophil# 0.06 X10^3/uL; Eosinophils% 0.6 % (0-5); Hematocrit 23.9 % (37-47); Hemoglobin 7.4 g/dL (12.0-15.0); Lymphocyte # 0.49 X10^3/ul (0.83-4.51); Lymphocyte % 4.7 % (19-41); Mean Corpuscular Hgb 28.7 pg (27.0-32.0); Mean Corpuscular Volume 92.6 fL (81-99); Mean Platelet Vol. 10.8 fl (6.2-12.0); Monocyte# 0.77 X10^3/uL; Monocyte% 7.5 % (0-10); NRBC Flagged by Analyzer 0 % (0-5); Neutrophil # 8.91 X10^3/uL (2.7-7.7); Neutrophil % 86.3 % (47-70); POSITIVE DIFFERENTIAL YES; Platelet Count 230 K/mm3 (150-450); RBC Distribution Width CV 18.8 % (11.6-14.6); RBC Distribution Width SD 63.2 fl (35.1-43.9); Red Blood Count 2.58 M/mm3 (4.2-5.4); White Blood Count 10.3 K/mm3 (4.4-11.0)
[2024-05-15 05:39] LABS: Differential Indicated SCAN CRITERIA MET
[2024-05-15] MEDS: oxyCODONE 5 MG Tablet PO ×2 (05:40→21:10)
[2024-05-15] MEDS: DiphenhydrAMINE 25 MG Capsule PO (05:40)
[2024-05-15] MEDS: Metoclopramide 10 MG/2 ML Vial 5 MG IV ×3 (05:41→18:03)
[2024-05-15] MEDS: Acetaminophen 325 MG Tablet 650 MG PO ×2 (05:41→21:12)
[2024-05-15] MEDS: 0.9% Saline Lock 10 ML Syringe IV ×2 (05:42→14:25)
[2024-05-15] MEDS: hydrALAZINE 50 MG Tablet PO ×2 (05:43→21:09)
[2024-05-15 05:45] LABS: International Normalized Ratio 1.3; Prothrombin Time (Protime)PT. 15.9 SECONDS (11.7-14.9)
[2024-05-15 05:46] LABS: Partial Thromboplast Time 43.2 Seconds (24.1-36.2)
[2024-05-15 05:59] LABS: AST(SGOT) 18 U/L (15-37); Alanine Aminotransfer ALT/SGPT 18 U/L (13-56); Albumin, Serum 2.5 g/dL (3.2-5.0); Alkaline Phosphatase 232 U/L (45-117); Anion Gap 5 (5-15); BUN 63 mg/dL (7-18); BUN/Creat Ratio 11.9 RATIO (10-20); Bilirubin, Direct 0.17 mg/dL (0.00-0.30); Calcium,Total 8.5 mg/dL (8.5-10.1); Chloride 101 mmol/L (98-107); Creatinine, Serum 5.28 mg/dL (0.55-1.02); EST Glomerular Filtration Rate 9 mL/min (>60); Est Glom Filt Rate - Afr Amer 11 mL/min (>60); Estimated Creatinine Clearance 11.69 ml/min; Glucose 128 mg/dL (74-106); Protein, Total 6.5 g/dL (6.4-8.2); Sodium Level 131 mmol/L (136-145); Thyroid Stim Hormone (TSH) 2.87 uIU/mL (0.358-3.74)
--- NOTE | 2024-05-15 08:57 | WOUNDNOTE ---
Dressings intact to bilateral lower legs/feet. dressing to remain in place until follow up with podiatry next week. pt aware.
[2024-05-15 08:59] LABS: Hemoglobin A1c 6.4 % (3.8-5.6)
--- NOTE | 2024-05-15 10:38 | PN.RENAL_ITS ---
Subjective Subjective Sitting on side of bed. No overnight events. Objective Data Objective Data Vital Signs: Vital Signs Temp Pulse Resp BP Pulse Ox O2 Del Method O2 Flow Rate 98.9 F 73 16 135/59 H 97 Room Air 2 05/15/24 05:49 05/15/24 05:49 05/15/24 05:49 05/15/24 05:49 05/15/24 05:49 05/15/24 05:49 05/10/24 12:20 Oxygen Flow Rate (L/min) 2 Oxygen Delivery Method Room Air Weight: 75.9 kg Body Mass Index (BMI) 27.8 Intake & Output: Intake and Output for Last 24 Hours 05/13/24 05/14/24 05/15/24 23:59 23:59 23:59 Intake Total 240 / 240 Output Total 4400 / 4400 Balance -4160 / -4160 Lab / Micro Data 05/15/24 05:15 05/15/24 05:15 Labs: Laboratory Results - last 24 hr 05/12/24 07:15: Diff Path Review Reviewed 05/14/24 11:02: POC Glucose 131 H 05/14/24 16:26: POC Glucose 108 H 05/14/24 20:34: POC Glucose 140 H 05/15/24 05:15: WBC 10.3, RBC 2.58 L, Hgb 7.4 L, Hct 23.9 L, MCV 92.6, MCH 28.7, MCHC 31.0 L, RDW Std Deviation 63.2 H, RDW Coeff of Fior 18.8 H, Plt Count 230, MPV 10.8, Immature Gran % (Auto) 0.500, Neut % (Auto) 86.3 H, Lymph % (Auto) 4.7 L, Iron % (Auto) 7.5, Eos % (Auto) 0.6, Baso % (Auto) 0.4, Absolute Neuts (auto) 8.9 H, Absolute Lymphs (auto) 0.49 L, Nucleated RBC % 0, PT 15.9 H, INR 1.3, A PTT 43.2 H, Sodium 131 L, Potassium 5.0, Chloride 101, Carbon Dioxide 25.0, Anion Gap 5, BUN 63 H, Creatinine 5.28 H, Estim Creat Clear Calc 11.69, Est GFR (MDRD) Af Amer 11 L, Est GFR (MDRD) Non-Af 9 L, BUN/Creatinine Ratio 11.9, G lucose 128 H, Hemoglobin A1c 6.4 H, Calcium 8.5, Total Bilirubin 0.60, Direct Bilirubin 0.17, AST 18, ALT 18, Alkaline Phosphatase 232 H, Total Protein 6.5, A lbumin 2.5 L, Globulin 4.0, TSH 2.87 Micro: Microbiology 05/10/24 10:18 Bone - 5th Toe Gram Stain - Final 05/10/24 10:18 Bone - 5th Toe Wound Culture - Final Staphylococcus aureus Enterobacter cloacae complex 05/10/24 10:18 Bone - 5th Toe Anaerobic Culture - Preliminary Checking for anaerobes, further studies to follow. 05/10/24 10:18 Bone - 5th Toe Gram Stain - Final 05/10/24 10:18 Bone - 5th Toe Wound Culture - Final Staphylococcus aureus Alcaligenes faecalis ssp faeca 05/10/24 10:18 Bone - 5th Toe Anaerobic Culture - Final No anaerobic bacteria isolated. 05/14/24 20:50 Stool Stool Occult Blood (MIKE) - Final Occult Blood Positive Physical Exam Narrative Alert and orient x 3, no apparent distress S1, S2, RRR Lung sounds clear Abdomen soft, nontender Bilateral legs wrapped Tunneled dialysis catheter dressing clean, dry and intact Assessment & Plan Assessment/Plan (1) ESRD (end stage renal disease) on dialysis: PLAN: Plan - ESRD; undergoes hemodialysis Tuesday at [facility], followed by Dr. Flynn. Patient underwent hemodialysis yesterday, no acute indication for CONTENT PUBLISHER today, likely next HD tomorrow with fluid removal as pt/bp tolerates. -Anemia of chronic disease; receives JORGE and iron with dialysis. Hemoglobin dropped 6.2 and received PRBC with dialysis. Hb 7.4 today. GI consulted, patient to undergo bidirectional scopes -Status post corrective surgery for chronic neuropathic ulcerations on right and left foot -History of hypertension; blood pressures acceptable
[2024-05-15] MEDS: Menthol/Lanolin/Calamine/Znox 113 GM Tube 1 APPLIC TOPICAL ×2 (14:22→21:11)
[2024-05-15 14:48] LABS: Bedside Glucose 103 mg/dL (74-106)
--- NOTE | 2024-05-15 15:25 | CASEMGMT ---
Social Work Insurance offering a peer to peer, needs done by 10am tomorrow, SW let Dr. Okeefe know and she will call in the [phone], option 5, need pt's name, , and policy number: [id number]. FRANCISCO Elaine
--- NOTE | 2024-05-15 15:45 | EGD_PTH ---
PATIENT: DIONY ROCHA LOC: [facility]3 U#:[id number] AGE/SX: 58/F ROOM: MS308 RE05/04/[address]: Dr. Neal Walton DO : 1965 BED: 1 DIS: 05/21/2024 SPEC #: [id number] RECD: 05/16/24 13:08 STATUS: LON REQ #: [id number] ANEL: 05/15/24 15:[address]: Uriah Romano DEPT: SURGICAL PATHOLOGY RECD BY: Ge Chairez ENTERED: 05/16/24 13:40 SP TYPE: EGD BIOPSY OTHR DR: DO Dr. Gustavo Koenig DPM Dr. David Kittoe, MD Dr. Jayaprakas Dasari, MD Dr. Mark Elderbrock, MD Dr. Mark Tereletsky, DO Dr. Nana Yaa Koram, MD Dr. Prakash Chand, MD Dr. Robert Leininger, MD Dr. Tamera Robotham, MD Tissues: Duodenum, NOS Procedures: Surgery Specimen Level IV Comments: @ Ordering doctor for SUIV edited from to @ by YOLETTE at 05/16/24 1429 @ Submitting doctor edited from to @ by YOLETTE at 05/16/24 1429 HEADER OPERATION: Colonoscopy, EGD with biopsy and hemostasis PRE-OP DIAGNOSIS: Anemia TISSUE SUBMITTED: Duodenum biopsy MICROSCOPIC DIAGNOSIS Duodenum, biopsy: Consistent with gastric metaplasia. / 05/17/2024 MICROSCOPIC DESCRIPTION Slides are reviewed. GROSS DESCRIPTION Received in fixative is one container labeled with the patient's name and designated Duodenum biopsy. The specimen consists of two irregular fragments of light mahajan soft tissue that in aggregate measure 0.6 x 0.3 x 0.1 cm. The specimen is totally submitted in one cassette./ 05/16/2024 TC:5 CPT:64100
--- NOTE | 2024-05-15 16:06 | PRE.ANES_ITS ---
ASA Classification* ASA Classification ASA Classification: 3 and E Assessment & Plan Anesthesia* Anesthesia Assessment Anesthesia Assessment: Discussed sedation and/or anesthesia options, risks, benefits, and alternatives with patient/parents/legal guardian/POA. Questions invited. The patient/parents/legal guardian/POA seems to understand and agrees to proceed with anesthesia plan. Reviewed the physical assessment, medical history, allergy history and patient home medications list prior to surgery/procedure/anesthetic and documented any changes. Performed airway and anesthesia risk assessments. Anesthesia Type Anesthesia Type: MAC History Source History Obtained from:: Patient and Chart Anesthesia Focused Assessment* Temperature: 98.3 F Pulse Rate: 77 Blood Pressure: 128/84 Respiratory Rate: 16 Pulse Ox: 95 Oxygen Delivery Method: Room Air Airway Assessment Mouth opens: >3 cm Mallampati Score: I Teeth Condition: Caps/Crowns (1 cap Is tight.) Neck Range of motion (ROM): Full ROM Pertinent Findings EKG Pertinent Findings:: May 04, 2024. Normal sinus rhythm. ECHO Pertinent Findings:: December 21, 2023. Ejection fraction 65%. Cath Results Pertinent Findings:: July 20, 2022. Previous stent to the LAD is patent. Disease circumflex is unchanged. Right coronary artery is okay. Focused Labs Anesthesia Preop lab: CBC WBC 10.3 K/mm3 (4.4-11.0) 05/15/24 05:15 RBC 2.58 M/mm3 (4.2-5.4) L 05/15/24 05:15 Hgb 7.4 g/dL (12.0-15.0) L 05/15/24 05:15 Hct 23.9 % (37-47) L 05/15/24 05:15 Plt Count 230 K/mm3 (150-450) 05/15/24 05:15 CHEMISTRY Potassium 5.0 mmol/L (3.5-5.1) 05/15/24 05:15 Sodium 131 mmol/L (136-145) L 05/15/24 05:15 Magnesium 1.9 mg/dL (1.6-2.6) 05/12/24 07:15 Phosphorus 3.0 mg/dL (2.5-4.9) 05/12/24 07:15 BUN 63 mg/dL (7-18) H 05/15/24 05:15 Creatinine 5.28 mg/dL (0.55-1.02) H 05/15/24 05:15 Glucose 128 mg/dL (74-106) H 05/15/24 05:15 POC Glucose 103 mg/dL (74-106) 05/15/24 14:17 TSH 2.87 uIU/mL (0.358-3.74) 05/15/24 05:15 COAG PT 15.9 SECONDS (11.7-14.9) H 05/15/24 05:15 Urine Test Negative Negative 11/08/18 19:40 Pre-Assessment Diagnosis/Proposed Procedure Planned Operative Procedure(s): EGD and Colonoscopy Anesthesia History Anesthesia History - collections director: Anesthesia History - collections director Hx Hospitalization Yes 12/29/20 08:24 Any Problems With Anesthesia No 05/14/24 22:43 Cholinesterase deficiency No 05/14/24 22:43 You/Your Family Experience No 05/14/24 22:43 fever (hyperthermia) with Relationship Recent Exposure to Contagious No 05/14/24 22:43 Disease Does patient have nerve No 05/14/24 22:43 stimulator Patient instructed to have No 05/14/24 22:43 device shut off --Does patient have Pacemaker No 05/10/24 06:32 or ICD? When Was Last Pacemaker Check QUESTION #4 FULL TEXT: You/Your Family Experience fever (hyperthermia) with Anesthesia Last Oral Intake Last Oral intake: Last Oral Intake NPO since 00:00 05/10/24 06:32 Meds taken in AM with sips of No 05/10/24 06:32 water? Meds patient instructed to take am of surgery PONV PONV - collections director: PONV - collections director Female HX of Motion Sickness HX of N/V After Surgery Non-Smoker Duration of Surgery greater than 60 minutes Number of Risk Factors PONV Score Height & Weight Height & Weight: Anesthesia: Height & Weight Height 5 ft 5 in 05/15/24 14:12 Weight: 75.9 kg 05/15/24 14:12 Body Mass Index (BMI) 27.8 05/15/24 06:00 Respiratory Assessment Respiratory Assessment - collections director: Respiratory Tract Infection Hx - collections director Hx Respiratory Tract Infection No 05/14/24 22:43 STOP Sleep Apnea STOP Sleep Apnea - collections director: STOP Sleep Apnea - collections director Hx Hypertension Yes 05/05/24 11:40 Hx Sleep Apnea No 05/04/24 06:38 CPAP No 05/10/24 12:10 BIPAP No 03/25/24 17:33 Do you snore loudly (louder No 05/04/24 06:38 than talking or can be heard Do you often feel tired/ No 05/04/24 06:38 fatigued/ sleepy during daytime? Has anyone observed you stop No 05/04/24 06:38 breathing during sleep? STOP Results Negative 05/10/24 12:10 QUESTION #5 FULL TEXT : Do you snore loudly (louder than talking or can be heard through closed doors)? 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 Specify any problems Hx of Preganancy in last 3 N/A 05/04/24 06:38 Months Nurse Filling Out Transfusion LSHRINER 05/04/24 06:38 & Questions: Date: 05/04/24 05/04/24 06:38 Time: 07:44 05/04/24 06:38 Patient unable to answer at this time (ie. confused, unrespo /Reproduction History /Reproductive History - collections director: /Reproductive Hx- collections director Hx Now No 05/14/24 22:43 Gestational Age (in weeks): EDC: Hx Hx Para Hx Section SAB No 05/14/24 22:43 Active Medications Active Medications: Current Medications Generic Name Dose Route Start Last Admin Trade Name Freq PRN Reason Stop Dose Admin Acetaminophen 650 mg 05/04/24 07:50 05/15/24 05:41 Acetaminophen 325 Mg Tablet PO 650 mg Q6H PRN PRN Administration Pain 1-10 Or Fever>100.7 Amlodipine Besylate 5 mg 05/04/24 10:00 05/14/24 10:25 Amlodipine 5 Mg Tablet PO Not Given DAILY TAB Protocol Aspirin 81 mg 05/04/24 10:00 05/14/24 11:09 Aspirin 81 Mg Tab.Chew PO 81 mg DAILYCM TAB Administration Atorvastatin Calcium 40 mg 05/04/24 10:00 05/14/24 11:09 Atorvastatin Calcium 40 Mg Tablet PO 40 mg DAILY TAB Administration Bupropion HCl 150 mg 05/04/24 10:00 05/14/24 11:08 Bupropion (Xl) 150 Mg Tablet.Xl PO 150 mg DAILY [facility] Administration Calamine/Phenol 1 applic 05/15/24 10:00 05/15/24 14:22 Menthol/Lanolin/Calamine/Znox 113 Gm Tube TOPICAL 1 applic BID [facility] Administration Protocol Calcitriol 0.5 mcg 05/04/24 16:00 05/14/24 16:24 Calcitriol 0.25 Mcg Capsule PO 0.5 mcg [id number] [facility] Administration Calcium Acetate 667 mg 05/04/24 08:00 05/15/24 14:24 Calcium Acetate 667 Mg Capsule PO Not Given TIDCM [facility] Carvedilol 25 mg 05/04/24 10:00 05/14/24 20:40 Carvedilol 25 Mg Tablet PO Not Given BID [facility] Protocol Diphenhydramine HCl 25 mg 05/06/24 17:01 05/15/24 05:40 Diphenhydramine 25 Mg Capsule PO 25 mg Q6H PRN PRN Administration ITCHING Ferrous Sulfate 325 mg 05/05/24 08:00 05/12/24 07:45 Ferrous Sulfate 325 Mg Tablet PO 325 mg [id number] [facility] Administration Folic Acid 1 mg 05/04/24 08:00 05/14/24 11:10 Folic Acid 1 Mg Tablet PO 1 mg BREAKFAST [facility] Administration Gabapentin 100 mg 05/04/24 07:50 05/14/24 13:44 Gabapentin 100 Mg Capsule PO 100 mg MoWeFr PRN Administration Pain Score 1-10 Glucagon 1 mg 05/04/24 07:50 Glucagon 1 Mg/Ml Syringe IM X1 PRN Hypoglycemia Protocol Heparin Sodium (Porcine) 5,000 unit 05/04/24 10:00 05/14/24 20:32 Heparin Injection (Vial) 5,000 Unit/Ml Vial SC Not Given Q12 [facility] Hydralazine HCl 50 mg 05/05/24 14:00 05/15/24 05:43 Hydralazine 50 Mg Tablet PO 50 mg TID TAB Administration Protocol Hydralazine HCl 10 mg 05/05/24 10:23 Hydralazine 20 Mg/Ml Vial IV Q4H PRN PRN SBP more than 180 mmHg Protocol Dextrose 250 mls @ 0 mls/hr 05/04/24 07:50 Dextrose 10%-Water IV .Q0M PRN HYPOGLYCEMIA Protocol As Directed Sodium Chloride 500 mls @ 0 mls/hr 05/10/24 07:00 IV .Q0M [facility] KVO Insulin Human Lispro 0 unit 05/04/24 07:50 05/15/24 14:23 Insulin Lispro 100 Unit/Ml Insuln.Pen SC Not Given ACHS [facility] Protocol L-Arginine/L-Glutamine/Calcium HMB 1 packet 05/15/24 17:00 Ted (Unflavored) Packet PO BIDCM [facility] Levothyroxine Sodium 25 mcg 05/05/24 06:00 05/15/24 06:02 Levothyroxine 25 Mcg Tablet PO Not Given DAILY@0600 [facility] Lorazepam 0.5 mg 05/04/24 16:00 05/14/24 10:26 Lorazepam 0.5 Mg Tablet PO Not Given [id number] [facility] Melatonin 3 mg 05/04/24 07:50 05/13/24 21:08 Melatonin 3 Mg Tablet PO 3 mg QHS PRN PRN Administration INSOMNIA Metoclopramide HCl 5 mg 05/14/24 18:00 05/15/24 14:25 Metoclopramide 10 Mg/2 Ml Vial IV 5 mg Q6 TAB Administration Ondansetron HCl 4 mg 05/04/24 07:50 05/09/24 18:11 Ondansetron 4 Mg/2 Ml Vial IV 4 mg Q8H PRN PRN Administration NAUSEA/VOMITING Oxycodone HCl 5 mg 05/05/24 04:03 05/15/24 05:40 Oxycodone 5 Mg Tablet PO 5 mg Q6H PRN PRN Administration Pain Score 4-10 Pantoprazole Sodium 40 mg 05/04/24 10:00 05/14/24 11:09 Pantoprazole Sodium 40 Mg Tablet PO 40 mg DAILY TAB Administration Paroxetine HCl 20 mg 05/04/24 10:00 05/14/24 11:08 Paroxetine 20 Mg Tablet PO 20 mg DAILY TAB Administration Polyethylene Glycol 17 gm 05/13/24 10:00 05/15/24 14:22 Polyethylene Glycol 3350 17 Gm Packet PO Not Given DAILY TAB Sodium Chloride 10 - 40 ml 05/04/24 14:40 05/15/24 14:25 0.9% Saline Lock 10 Ml Syringe IV 10 ml UD PRN Administration SALINE FLUSH FORMERLY [facility], 1928–1983 Medical History Debility Charcot's joint, right ankle and foot Charcot's joint, left ankle and foot Non-pressure chronic 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 layer exposed Non-pressure chronic ulcer of other part of left foot with fat layer exposed Drowsiness Mental status, decreased Carotid artery stenosis MSSA bacteremia ESRD on hemodialysis Osteomyelitis Anemia in chronic illness Type 2 diabetes mellitus Foot osteomyelitis, left Chronic renal disease, stage 4, severely decreased glomerular filtration rate (GFR) between 15-29 mL/min/1.73 square meter Acute on chronic anemia Chronic ulcer of right foot with necrosis of bone Chronic kidney disease, stage 4 (severe) Diabetes mellitus with diabetic polyneuropathy Diabetic foot ulcers Chronic kidney disease, stage 3b Cellulitis Acute lumbar radiculopathy Essential hypertension Adult failure to thrive COVID-19 (08/28/21) Chronic ulcer of right leg with fat layer exposed Ulcer of left foot with fat layer exposed Chronic ulcer of right foot with fat layer exposed Hyperparathyroidism, secondary renal Iron deficiency anemia Bilateral edema of lower extremity Chronic foot pain Charcot's joint of right foot Diabetes Non-smoker Myocardial infarct Hypertension TIA (transient ischemic attack) Amputation foot, bilat 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 Ulcer of left foot with necrosis of muscle Ulcer of left foot with muscle involvement without evidence of necrosis Anxiety and depression Diabetic infection of left foot Delayed wound healing Non-compliance Diabetic polyneuropathy Ischemic cardiomyopathy Obesity (BMI 30.0-34.9) Acquired varus deformity of left foot Acquired varus deformity of right foot Atherosclerosis of [place] coronary artery of [place] heart without angina pectoris Hemoglobin A1c greater than 9.0% NSTEMI (non-ST elevated myocardial infarction) (09/20/18) GERD (gastroesophageal reflux disease) HLD (hyperlipidemia) Back pain, chronic RLS (restless legs syndrome) Home Medications ?Medication ?Instructions ?Recorded ?Last Taken ?Type paroxetine HCl 20 mg tablet 20 mg PO DAILY DEPRESSION 07/07/21 04/07/22 History bupropion HCl 150 mg 24 hr tablet, 150 mg PO DAILY mood 02/04/22 04/07/22 History extended release sennosides 8.6 mg-docusate sodium 2 tab PO BID PRN PRN Constipation 04/24/22 Unknown Rx 50 mg tablet (Stool #0 tabs Softener-Stimulant Laxative) ascorbic acid (vitamin C) 500 mg 500 mg PO BID supplement 05/05/22 Unknown History tablet (Vitamin C) clopidogrel 75 mg tablet 75 mg PO DAILY prevent stroke 07/19/22 Unknown History ferrous sulfate 325 mg (65 mg 325 mg PO .three times a week 07/19/22 Unknown History iron) tablet anemia pantoprazole 40 mg tablet,delayed 40 mg PO BIDCM GERD 07/19/22 Unknown History release insulin glargine-yfgn 100 unit/mL 5 unit (0.05 mL) subcut QHS blood 07/21/22 Unknown Rx (3 mL) subcutaneous pen sugar #15 mL insulin lispro 100 unit/mL See Protocol subcut TIDAC #0 mL 07/21/22 Unknown Rx subcutaneous pen (Humalog KwikPen (U-100) Insulin) cyclobenzaprine 5 mg tablet 5 mg PO TID PRN muscle spasm #21 11/26/23 Unknown Rx tabs gabapentin 100 mg capsule 100 mg PO .COMPLEX PRN pain 11/26/23 Unknown History Mircera See Rx Instructions .Route 12/16/23 Unknown History .COMPLEX dialysis Venofer iron 12/16/23 Unknown History acetaminophen 325 mg capsule 325 mg PO Q4H PRN fever or pain 12/16/23 Unknown History amlodipine 5 mg tablet 5 mg PO DAILY bp 12/16/23 Unknown History antacid extra assorted fruit 750 mg PO .every 4 hours PRN tums 12/16/23 Unknown History tablets calcitriol 0.5 mcg capsule 0.5 mcg PO .COMPLEX on dialysis 12/16/23 Unknown History calcium acetate(phosphat bind) 667 676 mg PO TID is on dialysis 12/16/23 Unknown History mg capsule cloNIDine See Rx Instructions .Route 12/16/23 Unknown History .COMPLEX dialysis diphenhydramine 25 mg IV itching 12/16/23 Unknown History folic acid 800 mcg tablet 0.8 mg PO DAILY supplement 12/16/23 Unknown History hydralazine 25 mg tablet 25 mg PO TID bp 12/16/23 Unknown History insulin aspart U-100 6 unit subcut TID blood glucose 12/16/23 Unknown History insulin aspart U-100 100 unit/mL subcut 12/16/23 Unknown History (3 mL) subcutaneous pen insulin glargine 100 unit/mL (3 20 unit subcut DAILY blood glucose 12/16/23 Unknown History mL) subcutaneous pen (Lantus Solostar U-100 Insulin) isosorbide dinitrate 10 mg tablet 20 mg PO TID bp and heart 12/16/23 Unknown History levothyroxine 25 mcg tablet 25 mcg PO DAILY thyroid 12/16/23 Unknown History lidocaine-silicone, adhesive topical pain 12/16/23 Unknown History loperamide 2 mg capsule 2 mg PO Q4H PRN loose stool 12/16/23 Unknown History (Anti-Diarrheal (loperamide)) melatonin 5 mg capsule 5 mg PO .bedtime sleep 12/16/23 Unknown History nitroglycerin 0.4 mg sublingual 0.4 mg sublingual Q5M chest pain 12/16/23 Unknown History tablet (Nitrostat) olanzapine 5 mg tablet 5 mg PO QHS sleep 12/16/23 Unknown History ondansetron 4 mg disintegrating 4 mg PO DAILY PRN nausea and 12/16/23 Unknown History tablet vomiting pramipexole dihydrochloride 1.5 mg PO BID unknown 12/16/23 Unknown History promethazine 25 mg tablet 25 mg PO Q4H PRN nausea and 12/16/23 Unknown History vomiting aspirin 81 mg capsule 81 mg PO DAILY #30 caps 12/26/23 Unknown Rx cefepime 1 gram/50 mL in dextrose 1 g IV .as directed 12/26/23 Unknown Rx 5 % intravenous piggyback atorvastatin 40 mg tablet 40 mg PO DAILY 03/18/24 Unknown History buprenorphine 5 mcg/hour weekly 1 patch topical QWEEK 03/18/24 Unknown History transdermal patch carvedilol 25 mg tablet 25 mg PO BID 03/18/24 Unknown History clindamycin HCl 150 mg capsule 450 mg (3 x 150 mg) PO TID 7 days 04/19/24 Unknown Rx #63 CAPSULES clindamycin HCl 150 mg capsule 450 mg (3 x 150 mg) PO TID 10 days 04/25/24 Unknown Rx #90 caps Allergy/AdvReac Type Severity Reaction Status Date / Time oxycodone (From OxyContin) Allergy sob Verified 05/05/24 04:11 Penicillins Allergy swelling Verified 04/25/24 18:14 in throat vancomycin Allergy Itching Verified 04/25/24 18:14 metronidazole AdvReac Nausea Verified 04/25/24 18:14 Family History Mother Diabetes CVA (cerebral vascular accident) Brother CAD (coronary artery disease) CABG X 3 Cancer testicular Diabetes Brother CAD (coronary artery disease) CABG X3 Diabetes Brother CAD (coronary artery disease) Stents Diabetes Sister CAD (coronary artery disease) CABG x 3 CVA (cerebral vascular accident) Diabetes Surgical History History of History of foot surgery History of bilateral carpal tunnel release History of rotator cuff surgery History of coronary artery stent placement (12/31/20) Social History household members: none number of children: 2 current occupational status: disabled Smoking Status: Never smoker alcohol intake: never substance use type: does not use caffeine: Yes Type: carbonated beverages Number of servings: 2 Review of Systems (Anesthesia) ROS Narrative System reviewed and no additional complaints, except as documented.
--- NOTE | 2024-05-15 16:38 | PN_ITS ---
Subjective Subjective Patient seen and examined. She complains of being hungry as she is n.p.o. awaiting EGD today. Review of symptoms otherwise negative. She has made hemodynamically stable. Objective Data Objective Data Vital Signs: Vital Signs Temp Pulse Resp BP Pulse Ox O2 Del Method O2 Flow Rate 98.3 F 77 16 128/84 H 95 Room Air 2 05/15/24 16:12 05/15/24 16:12 05/15/24 16:12 05/15/24 16:12 05/15/24 16:12 05/15/24 16:15 05/15/24 16:12 Oxygen Flow Rate (L/min) 2 Oxygen Delivery Method Room Air Weight: 167 lb 5.294 oz Body Mass Index (BMI) 27.8 Intake & Output: Intake and Output for Last 24 Hours 05/13/24 05/14/24 05/15/24 23:59 23:59 23:59 Intake Total 240 / 240 Output Total 4400 / 4400 Balance -4160 / -4160 Lab / Micro Data 05/15/24 05:15 05/15/24 05:15 Labs: Laboratory Results - last 24 hr 05/14/24 16:26: POC Glucose 108 H 05/14/24 20:34: POC Glucose 140 H 05/15/24 05:15: WBC 10.3, RBC 2.58 L, Hgb 7.4 L, Hct 23.9 L, MCV 92.6, MCH 28.7, MCHC 31.0 L, RDW Std Deviation 63.2 H, RDW Coeff of Fior 18.8 H, Plt Count 230, MPV 10.8, Immature Gran % (Auto) 0.500, Neut % (Auto) 86.3 H, Lymph % (Auto) 4.7 L, [place] % (Auto) 7.5, Eos % (Auto) 0.6, Baso % (Auto) 0.4, Absolute Neuts (auto) 8.9 H, Absolute Lymphs (auto) 0.49 L, Nucleated RBC % 0, PT 15.9 H, INR 1.3, A PTT 43.2 H, Sodium 131 L, Potassium 5.0, Chloride 101, Carbon Dioxide 25.0, Anion Gap 5, BUN 63 H, Creatinine 5.28 H, Estim Creat Clear Calc 11.69, Est GFR (MDRD) Af Amer 11 L, Est GFR (MDRD) Non-Af 9 L, BUN/Creatinine Ratio 11.9, G lucose 128 H, Hemoglobin A1c 6.4 H, Calcium 8.5, Total Bilirubin 0.60, Direct Bilirubin 0.17, AST 18, ALT 18, Alkaline Phosphatase 232 H, Total Protein 6.5, A lbumin 2.5 L, Globulin 4.0, TSH 2.87 05/15/24 14:17: POC Glucose 103 Micro: Microbiology 05/10/24 10:18 Bone - 5th Toe Gram Stain - Final 05/10/24 10:18 Bone - 5th Toe Wound Culture - Final Staphylococcus aureus Enterobacter cloacae complex 05/10/24 10:18 Bone - 5th Toe Anaerobic Culture - Preliminary Checking for anaerobes, further studies to follow. 05/10/24 10:18 Bone - 5th Toe Gram Stain - Final 05/10/24 10:18 Bone - 5th Toe Wound Culture - Final Staphylococcus aureus Alcaligenes faecalis ssp faeca 05/10/24 10:18 Bone - 5th Toe Anaerobic Culture - Final No anaerobic bacteria isolated. 05/14/24 20:50 Stool Stool Occult Blood (MIKE) - Final Occult Blood Positive Physical Exam Const alert and oriented x3 Constitutional Narrative: anxious General Appearance: cooperative and well developed HEENT normocephalic, head/scalp atraumatic, moist oral mucous membranes and oropharynx normal Eyes PERRL and EOMs intact bilaterally Neck no lymphadenopathy, supple and no JVD Lymph Lymphatic: no lymphadenopathy noted and no lymphedema noted Resp normal respiratory effort, normal air movement and clear to auscultation bilaterally Cardio regular rhythm, S1 normal heart sound and S2 normal heart sound GI normal to inspection, nondistended, normoactive bowel sounds, soft to palpation and non-tender Extremity normal capillary refill, no clubbing, cyanosis or edema and no calf tenderness General Extremity: no tenderness to palpation of joints or extremities Skin Skin Narrative: both lower extremities wrapped in bandage Neuro CN's II-XII intact bilaterally, no focal motor deficits, no sensory deficits noted and deep tendon reflexes 2+ bilaterally Motor Exam: strength 5/5 throughout and general weakness Psych Mood & Affect: anxious Assessment & Plan Assessment/Plan (1) Short Achilles tendon (acquired), left ankle: (2) Short Achilles tendon (acquired), right ankle: (3) Anemia: PLAN: Plan #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 * PT/OT on board' * fall precautions * #anemia * Hemoglobin dropped to 5.6 and she had to be transfused. * stool for focal occult blood was positive. Gastroenterology consulted. For EGD today. * heparin and aspirin discontinued #ESRD: On hemodialysis on Wednesdays and Fridays. Nephrology on board. #Debility and weakness: PT OT on board. Fall precautions. #Type 2 diabetes mellitus: Complicated by neuropathy and diabetic foot ulcers as well as Charcot foot. On insulin. Checks ACHS. #Depression with anxiety: On antidepressants #Hyperlipidemia: On statin # GERD: On PPI # History of chronic back pain: Gets episodic epidural steroid injections on outpatient basis. #Hypothyroidism: on synthroid DVT prophylaxis; SCDs. No anticoagulation due to anemia. Heparin DC'd Charges/Coding Visit Charges Inpatient E&M: 70085 Subs Hosp L3
--- NOTE | 2024-05-15 17:01 | OP.CCLET_ITS ---
05/15/2024 Raúl Eric [address] [place] [address] Re : Upper GI endoscopy procedure for Chandni Carrillo Dear Dr. Eric This procedure was performed on Wednesday, May 15, 2024. My impressions and recommendations are as follows: Impressions : - Normal esophagus. - Oozing gastric ulcers with pigmented material. Treated with a heater probe. - Chronic duodenitis. Biopsied. Recommendations : - [facility]. - Resume regular diet. - Continue present medications. - Await pathology results. My findings are described in the full procedure note, which is enclosed. If I can be of further assistance, please feel free to contact me at . Sincerely, Uriah Romano, 05/15/2024 5:00:43 PM This report has been signed electronically.
--- NOTE | 2024-05-15 17:01 | OP.EGD_ITS ---
Patient Name: Chandni Carrillo Procedure Date: 05/15/2024 4:11 PM Date of : 1965 Age: 58 Procedure: Upper GI endoscopy Indications: Iron deficiency anemia Providers: Uriah Romano DO Medicines: Monitored Anesthesia Care Patient Profile: This is a 58 year old female. Refer to note in patient chart for documentation of history and physical. Patient has symptoms. Complications: No immediate complications. Procedure: Pre-Anesthesia Assessment: - Prior to the procedure, a History and Physical was performed, and patient medications and allergies were reviewed. The patient is competent. The risks and benefits of the procedure and the sedation options and risks were discussed with the patient. All questions were answered and informed consent was obtained. Patient identification and proposed procedure were verified by the physician in the pre-procedure area. Mental Status Examination: alert and oriented. Airway Examination: normal oropharyngeal airway and neck mobility. Respiratory Examination: clear to auscultation. CV Examination: normal. Prophylactic Antibiotics: The patient does not require prophylactic antibiotics. Prior Anticoagulants: The patient has taken no anticoagulant or antiplatelet agents. ASA Grade Assessment: III - A patient with severe systemic disease. After reviewing the risks and benefits, the patient was deemed in satisfactory condition to undergo the procedure. The anesthesia plan was to use monitored anesthesia care (MAC). Immediately prior to administration of medications, the patient was re-assessed for adequacy to receive sedatives. The heart rate, respiratory rate, oxygen saturations, blood pressure, adequacy of pulmonary ventilation, and response to care were monitored throughout the procedure. The physical status of the patient was re-assessed after the procedure. After obtaining informed consent, the endoscope was passed under direct vision. Throughout the procedure, the patient's blood pressure, pulse, and oxygen saturations were monitored continuously. The colonoscope was introduced through the mouth, and advanced to the fourth part of the duodenum. Small bowel enteroscopy was deemed necessary. The upper GI endoscopy was accomplished without difficulty. The patient tolerated the procedure well. Scope In: 4:31:59 PM Scope Out: 4:36:59 PM Total Procedure Duration Time 0 hours 5 minutes 0 seconds Findings: The examined esophagus was normal. Four oozing linear gastric ulcers with pigmented material were found in the cardia and in the gastric body. The largest lesion was 6 mm in largest dimension. Coagulation for hemostasis using heater probe was successful. Estimated blood loss was minimal. Diffuse moderate inflammation characterized by erythema, friability and granularity was found in the duodenal bulb. Biopsies were taken with a cold forceps for histology. Verification of patient identification for the specimen was done. Estimated blood loss was minimal. Impression: - Normal esophagus. - Oozing gastric ulcers with pigmented material. Treated with a heater probe. - Chronic duodenitis. Biopsied. Recommendation: - [facility]. - Resume regular diet. - Continue present medications. - Await pathology results. Procedure Code(s): --- Professional --- 92014, 59, Small intestinal endoscopy, enteroscopy beyond second portion of duodenum, not including ileum; with control of bleeding (eg, injection, bipolar cautery, unipolar cautery, laser, heater probe, stapler, plasma revenue stamp cutter) 94380, 51, Small intestinal endoscopy, enteroscopy beyond second portion of duodenum, not including ileum; with biopsy, single or multiple CPT copyright 2021 [employer]. All rights reserved. The codes documented in this report are preliminary and upon ironworker helper shop review may be revised to meet current compliance requirements. Uriah Romano DO 05/15/2024 5:00:43 PM This report has been signed electronically. Number of Addenda: 0 Note Initiated On: 05/15/2024 4:11 PM
--- NOTE | 2024-05-15 17:03 | OP.CCLET_ITS ---
05/15/2024 Raúl Eric [address] [place] [address] Re : Colonoscopy procedure for Chandni Carrillo Dear Dr. Eric This procedure was performed on Wednesday, May 15, 2024. My impressions and recommendations are as follows: Impressions : - Diverticulosis in the recto-sigmoid colon and in the sigmoid colon. - The examination was otherwise normal on direct and retroflexion views. - No specimens collected. Recommendations : - [facility] to [facility] for [facility] care. - Resume regular diet. - Continue present medications. - Repeat colonoscopy in 10 years for screening purposes. My findings are described in the full procedure note, which is enclosed. If I can be of further assistance, please feel free to contact me at . Sincerely, Uriah Romano, 05/15/2024 5:02:49 PM This report has been signed electronically.
--- NOTE | 2024-05-15 17:03 | OP.COLON_ITS ---
Patient Name: Chandni Carrillo Procedure Date: 05/15/2024 4:37 PM Date of : 1965 Age: 58 Procedure: Colonoscopy Indications: This is the patient's first colonoscopy, Iron deficiency anemia Providers: Uriah Romano DO Medicines: Monitored Anesthesia Care Patient Profile: This is a 58 year old female. Refer to note in patient chart for documentation of history and physical. Patient has symptoms. Last Colonoscopy: none. The patient's first colonoscopy is today. Complications: No immediate complications. Procedure: Pre-Anesthesia Assessment: - Prior to the procedure, a History and Physical was performed, and patient medications and allergies were reviewed. The patient is competent. The risks and benefits of the procedure and the sedation options and risks were discussed with the patient. All questions were answered and informed consent was obtained. Patient identification and proposed procedure were verified by the physician in the pre-procedure area. Mental Status Examination: alert and oriented. Airway Examination: normal oropharyngeal airway and neck mobility. Respiratory Examination: clear to auscultation. CV Examination: normal. Prophylactic Antibiotics: The patient does not require prophylactic antibiotics. Prior Anticoagulants: The patient has taken no anticoagulant or antiplatelet agents. ASA Grade Assessment: III - A patient with severe systemic disease. After reviewing the risks and benefits, the patient was deemed in satisfactory condition to undergo the procedure. The anesthesia plan was to use monitored anesthesia care (MAC). Immediately prior to administration of medications, the patient was re-assessed for adequacy to receive sedatives. The heart rate, respiratory rate, oxygen saturations, blood pressure, adequacy of pulmonary ventilation, and response to care were monitored throughout the procedure. The physical status of the patient was re-assessed after the procedure. After I obtained informed consent, the scope was passed under direct vision. Throughout the procedure, the patient's blood pressure, pulse, and oxygen saturations were monitored continuously. The colonoscope was introduced through the anus and advanced to the terminal ileum. The colonoscopy was performed without difficulty. The patient tolerated the procedure well. The quality of the bowel preparation was adequate. The terminal ileum, ileocecal valve, appendiceal orifice, and rectum were photographed. Scope In: 4:40:03 PM Scope Withdrawal Time 0 hours 6 minutes 27 seconds Scope Out: 4:50:34 PM Total Procedure Duration Time 0 hours 10 minutes 31 seconds Findings: The perianal and digital rectal examinations were normal. A few small-mouthed diverticula were found in the recto-sigmoid colon and sigmoid colon. The exam was otherwise without abnormality on direct and retroflexion views. Impression: - Diverticulosis in the recto-sigmoid colon and in the sigmoid colon. - The examination was otherwise normal on direct and retroflexion views. - No specimens collected. Recommendation: - [facility] for [facility] care. - Resume regular diet. - Continue present medications. - Repeat colonoscopy in 10 years for screening purposes. Procedure Code(s): --- Professional --- 27969, Colonoscopy, flexible; diagnostic, including collection of specimen(s) by brushing or washing, when performed (separate procedure) CPT copyright 2021 [employer]. All rights reserved. The codes documented in this report are preliminary and upon special needs bus driver review may be revised to meet current compliance requirements. Uriah Romano DO 05/15/2024 5:02:49 PM This report has been signed electronically. Number of Addenda: 0 Note Initiated On: 05/15/2024 4:37 PM
--- NOTE | 2024-05-15 17:03 | PCM.POST.ANE ---
Anesthesia: Postop Eval I Current Vital Signs Temperature: 98.1 F Pulse Rate: 72 Blood Pressure: 116/49 Respiratory Rate: 16 Pulse Ox: 94 Oxygen Delivery Method: Room Air Assessment Airway patent: Yes Spontaneous unlabored respirations: Yes Mental status: Asleep nausea: No Vomiting: No Anesthesia Complication: No Fluid Hydration Crystalloid volume administer (ml): 100 Total IV fluid infused: 100 Progress Note Anesthesia document: Postop Eval 1 completed: Yes
--- NOTE | 2024-05-15 17:11 | PCM.POSTANE2 ---
Anesthesia Postop Eval I Sum Postop Eval Completion status Anesthesia document: Postop Eval 1 completed: Yes Anesthesia Postop Eval I Summary Anesthesia Postop Eval I Summary: Anesthesia Postop Eval I: Assessment Summary Airway patent Yes 05/15/24 17:04 [email or web address] Spontaneous unlabored Yes 05/15/24 17:04 [email or web address] respirations Mental status Asleep 05/15/24 17:04 [email or web address] nausea No 05/15/24 17:04 [email or web address] Vomiting No 05/15/24 17:04 [email or web address] Anesthesia Postop Eval I: Fluid Summary Crystalloid volume administer 100 05/15/24 17:04 [email or web address] (ml) Colloids volume administered ( ml) Blood Product volume administered (ml) Total IV fluid infused 100 05/15/24 17:04 [email or web address] Anesthesia Postop Eval I: Summary Notes Anesthesia Complication No 05/15/24 17:04 [email or web address] Anesthesia Complication Comment: Post-operative progress note Anesthesia: Postop Eval II Evaluation Mental status: Awake and Calm Pain Level: 0 nausea: No Vomiting: No
[2024-05-15 19:27] LABS: Bedside Glucose 104 mg/dL (74-106)
[2024-05-15] MEDS: Carvedilol 25 MG Tablet PO (21:09)
[2024-05-15 23:39] LABS: Bedside Glucose 144 mg/dL (74-106)
[2024-05-16] VITALS (13 sets, daily range): BP systolic 91–212; BP diastolic 40–61; PULSE 60–80; RESP 14–16; TEMP 36.5–36.6; O2SAT 94–97; BMI 28.3; BMI 27.9
[2024-05-16] MEDS: Acetaminophen 325 MG Tablet 650 MG PO ×3 (05:07→23:04)
[2024-05-16] MEDS: oxyCODONE 5 MG Tablet PO ×3 (05:07→23:05)
[2024-05-16] MEDS: Metoclopramide 10 MG/2 ML Vial 5 MG IV ×2 (05:07→23:05)
[2024-05-16] MEDS: Levothyroxine 25 MCG TABLET PO (05:08)
[2024-05-16] MEDS: Insulin Lispro 100 UNIT/ML INSULN.PEN SC ×3 (06:51→22:57)
[2024-05-16 06:54] LABS: Absolute Lymphocyte Count 0.49 X10^3/uL (0.83-4.51); Absolute Neutrophil Count 4.9 X10^3/uL (2.0-7.7); Basophil# 0.04 X10^3/uL; Basophil% 0.6 % (0-1); Eosinophil# 0.14 X10^3/uL; Eosinophils% 2.3 % (0-5); Hematocrit 23.8 % (37-47); Hemoglobin 7.4 g/dL (12.0-15.0); Lymphocyte # 0.49 X10^3/ul (0.83-4.51); Lymphocyte % 7.9 % (19-41); Mean Corp Hgb Conc 31.1 g/dL (32-36); Mean Corpuscular Hgb 28.8 pg (27.0-32.0); Mean Corpuscular Volume 92.6 fL (81-99); Mean Platelet Vol. 10.7 fl (6.2-12.0); Monocyte# 0.66 X10^3/uL; Monocyte% 10.6 % (0-10); NRBC Flagged by Analyzer 0 % (0-5); Neutrophil # 4.85 X10^3/uL (2.7-7.7); Neutrophil % 78.1 % (47-70); POSITIVE DIFFERENTIAL YES; Platelet Count 257 K/mm3 (150-450); RBC Distribution Width CV 18.4 % (11.6-14.6); RBC Distribution Width SD 61.3 fl (35.1-43.9); Red Blood Count 2.57 M/mm3 (4.2-5.4); White Blood Count 6.2 K/mm3 (4.4-11.0)
[2024-05-16 07:15] LABS: Anion Gap 7 (5-15); BUN 74 mg/dL (7-18); BUN/Creat Ratio 11.1 RATIO (10-20); Calcium,Total 7.7 mg/dL (8.5-10.1); Chloride 104 mmol/L (98-107); Creatinine, Serum 6.68 mg/dL (0.55-1.02); EST Glomerular Filtration Rate 7 mL/min (>60); Est Glom Filt Rate - Afr Amer 8 mL/min (>60); Estimated Creatinine Clearance 9.44 ml/min; Glucose 212 mg/dL (74-106); Potassium 5.1 mmol/L (3.5-5.1); Sodium Level 135 mmol/L (136-145)
[2024-05-16] MEDS: 0.9% Normal Saline 1,000 ML IV.SOLN. 1000 ML OPERA.SITE (09:24)
[2024-05-16] MEDS: Epoetin Alfa epbx 10,000 UNIT/ML 20000 UNIT IV (09:25)
[2024-05-16] MEDS: PureFlow B 2K Dialysis Soln 1 BAG 6 BAG PF (09:25)
[2024-05-16] MEDS: 0.9% Saline Lock 10 ML Syringe IV (09:25)
--- NOTE | 2024-05-16 10:20 | CASEMGMT ---
Discharge Planning [employer] denied skilled services. Appeal information given to SW. Rekha Moore DC Planning Asst.
--- NOTE | 2024-05-16 10:52 | CASEMGMT ---
Addendum entered by Verito Abreu 05/16/24 15:56: Social [facility] agreeable to accept pt if [employer] insurance is approved tomorrow. Pt will need precert [facility] for [facility]. SW to follow up with [facility] tomorrow. ERIN Masters Original Note: Social Work SW spoke with who completed Peer to Peer. 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 Darin at [facility] confirms this. LUCRETIA spoke with [facility] registration who states pt is showing ineligible for [employer], but is eligible for Medicaid #[id number]. Phone call to Jonna [facility] Virtual Assistant For [employer] who LUCRETIA has been working with throughout pt stay, and updated on situation. Jonna states that she assisted pt in submitting paperwork in April to [facility] for continuation of care. Jonna to check with insurance. Return call from Jonna who states that [facility] system was not updated on 05/10. The [employer] insurance will be updated and will show as active in the system tomorrow 05/17. The [facility] number will be [phone]. jordan Da Silva bilingual administrative assistant, updated and will call [facility] to determine if they can accept pt under her [employer] insurance. ERIN Masters
[2024-05-16] MEDS: Heparin 10,000 UNITS/10 ML Vial IV (11:04)
[2024-05-16 11:35] LABS: Bedside Glucose 189 mg/dL (74-106)
[2024-05-16 12:04] LABS: Bedside Glucose 211 mg/dL (74-106)
[2024-05-16] MEDS: Calcium Acetate 667 MG Capsule PO ×2 (13:43→17:18)
[2024-05-16] MEDS: Pantoprazole Sodium 40 MG Tablet PO (13:43)
[2024-05-16] MEDS: Folic Acid 1 MG Tablet PO (13:44)
[2024-05-16] MEDS: Menthol/Lanolin/Calamine/Znox 113 GM Tube 1 APPLIC TOPICAL ×2 (13:46→22:58)
[2024-05-16] MEDS: Atorvastatin Calcium 40 MG Tablet PO (13:47)
[2024-05-16] MEDS: amLODIPine 5 MG Tablet PO (13:47)
[2024-05-16] MEDS: Carvedilol 25 MG Tablet PO ×2 (13:47→22:58)
[2024-05-16] MEDS: Paroxetine 20 MG Tablet PO (13:48)
[2024-05-16] MEDS: buPROPion (XL) 150 MG TABLET.XL PO (13:49)
[2024-05-16] MEDS: Smz/Tmp Ds Tablet 1 TABLET PO (13:57)
--- NOTE | 2024-05-16 15:14 | PN_ITS ---
Subjective Subjective Patient seen and examined. She was eating breakfast and undergoing dialysis. She had no active complaints. Review of systems is otherwise negative. She has remained hemodynamically stable. Objective Data Objective Data Vital Signs: Vital Signs Temp Pulse Resp BP Pulse Ox O2 Del Method O2 Flow Rate 97.7 F L 63 16 113/40 L 97 Room Air 2 05/16/24 04:00 05/16/24 11:23 05/16/24 11:23 05/16/24 11:23 05/16/24 04:00 05/16/24 11:23 05/15/24 22:00 Oxygen Flow Rate (L/min) 2 Oxygen Delivery Method Room Air Weight: 167 lb 8.821 oz Body Mass Index (BMI) 27.9 Intake & Output: Intake and Output for Last 24 Hours 05/14/24 05/15/24 05/16/24 23:59 23:59 23:59 Intake Total 240 / 240 Output Total 4400 / 4400 1200 / 1200 Balance -4160 / -4160 -1200 / -1200 Lab / Micro Data 05/16/24 06:42 05/16/24 06:42 Labs: Laboratory Results - last 24 hr 05/15/24 18:00: POC Glucose 104 05/15/24 23:17: POC Glucose 144 H 05/16/24 06:42: WBC 6.2, RBC 2.57 L, Hgb 7.4 L, Hct 23.8 L, MCV 92.6, MCH 28.8, MCHC 31.1 L, RDW Std Deviation 61.3 H, RDW Coeff of Fior 18.4 H, Plt Count 257, MPV 10.7, Immature Gran % (Auto) 0.500, Neut % (Auto) 78.1 H, Lymph % (Auto) 7.9 L, Edgar % (Auto) 10.6 H, Eos % (Auto) 2.3, Baso % (Auto) 0.6, Absolute Neuts (auto) 4.9, Absolute Lymphs (auto) 0.49 L, Nucleated RBC % 0, Sodium 135 L, Potassium 5.1, Chloride 104, Carbon Dioxide 24.0, Anion Gap 7, BUN 74 H, C reatinine 6.68 H, Estim Creat Clear Calc 9.44, Est GFR (MDRD) Af Amer 8 L, Est GFR (MDRD) Non-Af 7 L, BUN/Creatinine Ratio 11.1, Glucose 212 H, Calcium 7.7 L 05/16/24 06:48: POC Glucose 189 H 05/16/24 11:32: POC Glucose 211 H Micro: Microbiology 05/10/24 10:18 Bone - 5th Toe Gram Stain - Final 05/10/24 10:18 Bone - 5th Toe Wound Culture - Final Staphylococcus aureus Enterobacter cloacae complex 05/10/24 10:18 Bone - 5th Toe Anaerobic Culture - Preliminary Checking for anaerobes, further studies to follow. 05/10/24 10:18 Bone - 5th Toe Gram Stain - Final 05/10/24 10:18 Bone - 5th Toe Wound Culture - Final Staphylococcus aureus Alcaligenes faecalis ssp faeca 05/10/24 10:18 Bone - 5th Toe Anaerobic Culture - Final No anaerobic bacteria isolated. 05/14/24 20:50 Stool Stool Occult Blood (MIKE) - Final Occult Blood Positive Physical Exam Const alert, oriented x3, no apparent distress, average body habitus and healthy appearing General Appearance: cooperative, comfortable, well kempt and well developed Orientation / Consciousness: awake, oriented to person, oriented to place and oriented to time HEENT normocephalic, head/scalp atraumatic, hearing grossly normal bilaterally, nasal mucous membranes and turbinates normal, moist oral mucous membranes and oropharynx normal Eyes PERRL, EOMs intact bilaterally and conjunctivae normal Neck full ROM, no lymphadenopathy, supple, no JVD, thyroid normal and no carotid bruits General: trachea midline Lymph Lymphatic: no lymphadenopathy noted and no lymphedema noted Chest inspection of chest normal Resp normal respiratory effort, normal air movement, no retractions, no use of accessory muscles and clear to auscultation bilaterally Auscultation: Negative for rales, rhonchi or wheezes Cardio regular rate, regular rhythm, S1 normal heart sound, S2 normal heart sound, no murmurs, no rub, no gallops and peripheral pulses 2+ throughout GI normal to inspection, nondistended, normoactive bowel sounds, soft to palpation, non-tender and non-distended Back/Spine normal ROM Extremity normal to inspection, full ROM, normal capillary refill, no clubbing, cyanosis or edema, no calf tenderness and no pedal edema General Extremity: no tenderness to palpation of joints or extremities Skin no rashes or lesions noted Skin Narrative: both lower extremities wrapped in bandage Neuro oriented x3, CN's II-XII intact bilaterally, moves all extremities, no focal motor deficits, no sensory deficits noted and deep tendon reflexes 2+ bilaterally Sensorium / Orientation: awake and alert Speech: speech normal Motor Exam: strength 5/5 throughout and general weakness Psych mental status grossly normal, thought process normal, cooperative and affect normal Appearance: appropriate Assessment & Plan Assessment/Plan (1) Short Achilles tendon (acquired), left ankle: (2) Short Achilles tendon (acquired), right ankle: (3) Anemia: PLAN: Plan #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 * PT/OT on board * fall precautions * bone cultures grew Staph aureus and Alcaligenes faecalis with wound cultures growing Enterobacter cloacae. * ID consulted. Patient started on p.o. Bactrim for 6-week course. * #anemia * Hemoglobin dropped to 5.6 and she had to be transfused. * stool for focal occult blood was positive. Gastroenterology consulted. * Had EGD yesterday which shoed multiple oozing gastric ulcers which were cauterised * heparin and aspirin discontinued * Hb today is 7.4 #ESRD: On hemodialysis on Wednesdays and Fridays. Nephrology on board. #Debility and weakness: PT OT on board. Fall precautions. #Type 2 diabetes mellitus: Complicated by neuropathy and diabetic foot ulcers as well as Charcot foot. On insulin. Checks ACHS. #Depression with anxiety: On antidepressants #Hyperlipidemia: On statin # GERD: On PPI # History of chronic back pain: Gets episodic epidural steroid injections on outpatient basis. #Hypothyroidism: on synthroid DVT prophylaxis; SCDs. No anticoagulation due to anemia. Heparin DC'd Charges/Coding Visit Charges Inpatient E&M: 55723 Subs Hosp L2
--- NOTE | 2024-05-16 15:32 | CON.PCM.ID_ITS ---
Assessment & Plan Assessment/Plan (1) Other acute osteomyelitis, right ankle and foot: PLAN: S/p 05/10/[address] Julian for bilateral lower extremity fifth metatarsal base excision and peroneus brevis tendon transfer. Surg cx with MRSA, alcaligenes, and enterobacter. Discussed options, limited abx based on allergies and ESRD, will do po bactrim which should have good bone penetration, plan on 6 weeks total course. Will follow, thank you (2) Other acute osteomyelitis, left ankle and foot: HPI Consult Data Date of Consult: 05/16/24 HPI Narrative Reason for Consultation: osteo HPI Narrative: DIONY ROCHA, is a 58 F with DM neuropathy, prior osteo, taken to OR 05/10 for bilat I&D and tendon lengthening. Has been feeling ok, no fever, no n/v/d. Surg cx now (+). Full ROS performed and neg except as noted above. [facility] Medical History Debility Charcot's joint, right ankle and foot Charcot's joint, left ankle and foot Non-pressure chronic 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 layer exposed Non-pressure chronic ulcer of other part of left foot with fat layer exposed Drowsiness Mental status, decreased Carotid artery stenosis MSSA bacteremia ESRD on hemodialysis Osteomyelitis Anemia in chronic illness Type 2 diabetes mellitus Foot osteomyelitis, left Chronic renal disease, stage 4, severely decreased glomerular filtration rate (GFR) between 15-29 mL/min/1.73 square meter Acute on chronic anemia Chronic ulcer of right foot with necrosis of bone Chronic kidney disease, stage 4 (severe) Diabetes mellitus with diabetic polyneuropathy Diabetic foot ulcers Chronic kidney disease, stage 3b Cellulitis Acute lumbar radiculopathy Essential hypertension Adult failure to thrive COVID-19 (08/28/21) Chronic ulcer of right leg with fat layer exposed Ulcer of left foot with fat layer exposed Chronic ulcer of right foot with fat layer exposed Hyperparathyroidism, secondary renal Iron deficiency anemia Bilateral edema of lower extremity Chronic foot pain Charcot's joint of right foot Diabetes Non-smoker Myocardial infarct Hypertension TIA (transient ischemic attack) Amputation foot, bilat 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 Ulcer of left foot with necrosis of muscle Ulcer of left foot with muscle involvement without evidence of necrosis Anxiety and depression Diabetic infection of left foot Delayed wound healing Non-compliance Diabetic polyneuropathy Ischemic cardiomyopathy Obesity (BMI 30.0-34.9) Acquired varus deformity of left foot Acquired varus deformity of right foot Atherosclerosis of [place] coronary artery of [place] heart without angina pectoris Hemoglobin A1c greater than 9.0% NSTEMI (non-ST elevated myocardial infarction) (09/20/18) GERD (gastroesophageal reflux disease) HLD (hyperlipidemia) Back pain, chronic RLS (restless legs syndrome) Home Medications ?Medication ?Instructions ?Recorded ?Last Taken ?Type paroxetine HCl 20 mg tablet 20 mg PO DAILY DEPRESSION 07/07/21 04/07/22 History bupropion HCl 150 mg 24 hr tablet, 150 mg PO DAILY mood 02/04/22 04/07/22 History extended release sennosides 8.6 mg-docusate sodium 2 tab PO BID PRN PRN Constipation 04/24/22 Unknown Rx 50 mg tablet (Stool #0 tabs Softener-Stimulant Laxative) ascorbic acid (vitamin C) 500 mg 500 mg PO BID supplement 05/05/22 Unknown History tablet (Vitamin C) clopidogrel 75 mg tablet 75 mg PO DAILY prevent stroke 07/19/22 Unknown History ferrous sulfate 325 mg (65 mg 325 mg PO .three times a week 07/19/22 Unknown History iron) tablet anemia pantoprazole 40 mg tablet,delayed 40 mg PO BIDCM GERD 07/19/22 Unknown History release insulin glargine-yfgn 100 unit/mL 5 unit (0.05 mL) subcut QHS blood 07/21/22 Unknown Rx (3 mL) subcutaneous pen sugar #15 mL insulin lispro 100 unit/mL See Protocol subcut TIDAC #0 mL 07/21/22 Unknown Rx subcutaneous pen (Humalog KwikPen (U-100) Insulin) cyclobenzaprine 5 mg tablet 5 mg PO TID PRN muscle spasm #21 11/26/23 Unknown Rx tabs gabapentin 100 mg capsule 100 mg PO .COMPLEX PRN pain 11/26/23 Unknown History Mircera See Rx Instructions .Route 12/16/23 Unknown History .COMPLEX dialysis Venofer iron 12/16/23 Unknown History acetaminophen 325 mg capsule 325 mg PO Q4H PRN fever or pain 12/16/23 Unknown History amlodipine 5 mg tablet 5 mg PO DAILY bp 12/16/23 Unknown History antacid extra assorted fruit 750 mg PO .every 4 hours PRN tums 12/16/23 Unknown History tablets calcitriol 0.5 mcg capsule 0.5 mcg PO .COMPLEX on dialysis 12/16/23 Unknown History calcium acetate(phosphat bind) 667 676 mg PO TID is on dialysis 12/16/23 Unknown History mg capsule cloNIDine See Rx Instructions .Route 12/16/23 Unknown History .COMPLEX dialysis diphenhydramine 25 mg IV itching 12/16/23 Unknown History folic acid 800 mcg tablet 0.8 mg PO DAILY supplement 12/16/23 Unknown History hydralazine 25 mg tablet 25 mg PO TID bp 12/16/23 Unknown History insulin aspart U-100 6 unit subcut TID blood glucose 12/16/23 Unknown History insulin aspart U-100 100 unit/mL subcut 12/16/23 Unknown History (3 mL) subcutaneous pen insulin glargine 100 unit/mL (3 20 unit subcut DAILY blood glucose 12/16/23 Unknown History mL) subcutaneous pen (Lantus Solostar U-100 Insulin) isosorbide dinitrate 10 mg tablet 20 mg PO TID bp and heart 12/16/23 Unknown History levothyroxine 25 mcg tablet 25 mcg PO DAILY thyroid 12/16/23 Unknown History lidocaine-silicone, adhesive topical pain 12/16/23 Unknown History loperamide 2 mg capsule 2 mg PO Q4H PRN loose stool 12/16/23 Unknown History (Anti-Diarrheal (loperamide)) melatonin 5 mg capsule 5 mg PO .bedtime sleep 12/16/23 Unknown History nitroglycerin 0.4 mg sublingual 0.4 mg sublingual Q5M chest pain 12/16/23 Unknown History tablet (Nitrostat) olanzapine 5 mg tablet 5 mg PO QHS sleep 12/16/23 Unknown History ondansetron 4 mg disintegrating 4 mg PO DAILY PRN nausea and 12/16/23 Unknown History tablet vomiting pramipexole dihydrochloride 1.5 mg PO BID unknown 12/16/23 Unknown History promethazine 25 mg tablet 25 mg PO Q4H PRN nausea and 12/16/23 Unknown History vomiting aspirin 81 mg capsule 81 mg PO DAILY #30 caps 12/26/23 Unknown Rx cefepime 1 gram/50 mL in dextrose 1 g IV .as directed 12/26/23 Unknown Rx 5 % intravenous piggyback atorvastatin 40 mg tablet 40 mg PO DAILY 03/18/24 Unknown History buprenorphine 5 mcg/hour weekly 1 patch topical QWEEK 03/18/24 Unknown History transdermal patch carvedilol 25 mg tablet 25 mg PO BID 03/18/24 Unknown History clindamycin HCl 150 mg capsule 450 mg (3 x 150 mg) PO TID 7 days 04/19/24 Unknown Rx #63 CAPSULES clindamycin HCl 150 mg capsule 450 mg (3 x 150 mg) PO TID 10 days 04/25/24 Unknown Rx #90 caps Allergy/AdvReac Type Severity Reaction Status Date / Time oxycodone (From OxyContin) Allergy sob Verified 05/05/24 04:11 Penicillins Allergy swelling Verified 04/25/24 18:14 in throat vancomycin Allergy Itching Verified 04/25/24 18:14 metronidazole AdvReac Nausea Verified 04/25/24 18:14 Family History Mother Diabetes CVA (cerebral vascular accident) Brother CAD (coronary artery disease) CABG X 3 Cancer testicular Diabetes Brother CAD (coronary artery disease) CABG X3 Diabetes Brother CAD (coronary artery disease) Stents Diabetes Sister CAD (coronary artery disease) CABG x 3 CVA (cerebral vascular accident) Diabetes Surgical History History of History of foot surgery History of bilateral carpal tunnel release History of rotator cuff surgery History of coronary artery stent placement (12/31/20) Social History household members: none number of children: 2 current occupational status: disabled Smoking Status: Never smoker alcohol intake: never substance use type: does not use caffeine: Yes Type: carbonated beverages Number of servings: 2 Physical Exam Const alert, oriented x3 and no apparent distress General Appearance: cooperative HEENT normocephalic and head/scalp atraumatic Eyes PERRL and EOMs intact bilaterally Neck supple and No nodes Resp normal air movement and clear to auscultation bilaterally Cardio regular rate and regular rhythm GI soft to palpation, non-tender and non-distended Extremity General Extremity: edema Skin Skin Narrative: no new rash Neuro CN's II-XII intact bilaterally Lab / Micro Data Attestation: I reviewed the patient's lab results. 05/16/24 06:42 05/16/24 06:42 Labs: Laboratory Results - last 24 hr 05/15/24 18:00: POC Glucose 104 05/15/24 23:17: POC Glucose 144 H 05/16/24 06:42: WBC 6.2, RBC 2.57 L, Hgb 7.4 L, Hct 23.8 L, MCV 92.6, MCH 28.8, MCHC 31.1 L, RDW Std Deviation 61.3 H, RDW Coeff of Fior 18.4 H, Plt Count 257, MPV 10.7, Immature Gran % (Auto) 0.500, Neut % (Auto) 78.1 H, Lymph % (Auto) 7.9 L, [place] % (Auto) 10.6 H, Eos % (Auto) 2.3, Baso % (Auto) 0.6, Absolute Neuts (auto) 4.9, Absolute Lymphs (auto) 0.49 L, Nucleated RBC % 0, Sodium 135 L, Potassium 5.1, Chloride 104, Carbon Dioxide 24.0, Anion Gap 7, BUN 74 H, C reatinine 6.68 H, Estim Creat Clear Calc 9.44, Est GFR (MDRD) Af Amer 8 L, Est GFR (MDRD) Non-Af 7 L, BUN/Creatinine Ratio 11.1, Glucose 212 H, Calcium 7.7 L 05/16/24 06:48: POC Glucose 189 H 05/16/24 11:32: POC Glucose 211 H
--- NOTE | 2024-05-16 16:01 | PN.RENAL_ITS ---
Subjective Subjective Follow-up on ESRD. Dialysis now, she complains of ongoing leg pain and wants to be chair. Denies shortness of breath. Dialysis has been done, no issues with an access or ultrafiltration. Blood pressure stable. She had 1200 cc removed with dialysis Objective Data Objective Data Vital Signs: Vital Signs Temp Pulse Resp BP Pulse Ox O2 Del Method O2 Flow Rate 97.7 F L 63 16 113/40 L 97 Room Air 2 05/16/24 04:00 05/16/24 11:23 05/16/24 11:23 05/16/24 11:23 05/16/24 04:00 05/16/24 11:23 05/15/24 22:00 Oxygen Flow Rate (L/min) 2 Oxygen Delivery Method Room Air Weight: 76 kg Body Mass Index (BMI) 27.9 Intake & Output: Intake and Output for Last 24 Hours 05/14/24 05/15/24 05/16/24 23:59 23:59 23:59 Intake Total 240 / 240 Output Total 4400 / 4400 1200 / 1200 Balance -4160 / -4160 -1200 / -1200 Lab / Micro Data Attestation: I reviewed the patient's lab results. 05/16/24 06:42 05/16/24 06:42 Labs: Laboratory Results - last 24 hr 05/15/24 18:00: POC Glucose 104 05/15/24 23:17: POC Glucose 144 H 05/16/24 06:42: WBC 6.2, RBC 2.57 L, Hgb 7.4 L, Hct 23.8 L, MCV 92.6, MCH 28.8, MCHC 31.1 L, RDW Std Deviation 61.3 H, RDW Coeff of Fior 18.4 H, Plt Count 257, MPV 10.7, Immature Gran % (Auto) 0.500, Neut % (Auto) 78.1 H, Lymph % (Auto) 7.9 L, [place] % (Auto) 10.6 H, Eos % (Auto) 2.3, Baso % (Auto) 0.6, Absolute Neuts (auto) 4.9, Absolute Lymphs (auto) 0.49 L, Nucleated RBC % 0, Sodium 135 L, Potassium 5.1, Chloride 104, Carbon Dioxide 24.0, Anion Gap 7, BUN 74 H, C reatinine 6.68 H, Estim Creat Clear Calc 9.44, Est GFR (MDRD) Af Amer 8 L, Est GFR (MDRD) Non-Af 7 L, BUN/Creatinine Ratio 11.1, Glucose 212 H, Calcium 7.7 L 05/16/24 06:48: POC Glucose 189 H 05/16/24 11:32: POC Glucose 211 H Micro: Microbiology 05/10/24 10:18 Bone - 5th Toe Gram Stain - Final 05/10/24 10:18 Bone - 5th Toe Wound Culture - Final Staphylococcus aureus Enterobacter cloacae complex 05/10/24 10:18 Bone - 5th Toe Anaerobic Culture - Preliminary Checking for anaerobes, further studies to follow. 05/10/24 10:18 Bone - 5th Toe Gram Stain - Final 05/10/24 10:18 Bone - 5th Toe Wound Culture - Final Staphylococcus aureus Alcaligenes faecalis ssp faeca 05/10/24 10:18 Bone - 5th Toe Anaerobic Culture - Final No anaerobic bacteria isolated. 05/14/24 20:50 Stool Stool Occult Blood (MIKE) - Final Occult Blood Positive Physical Exam Const alert, oriented x3, no apparent distress and average body habitus General Appearance: well developed Orientation / Consciousness: oriented to person, oriented to place and oriented to time HEENT normocephalic Head and Scalp: atraumatic Neck no lymphadenopathy Resp no use of accessory muscles and clear to auscultation bilaterally Effort and Inspection: respiratory distress Cardio regular rate GI non-tender Auscultation: normoactive bowel sounds external exam normal Neuro Sensorium / Orientation: awake and alert Motor Exam: no tremor Psych cooperative Assessment & Plan Assessment/Plan (1) ESRD (end stage renal disease) on dialysis: PLAN: Patient had dialysis today and tolerated it well. No issues with the blood pressure, potassium was 5.1, anticipate being better after dialysis. Will plan medicine with suspicion for Tuesday
[2024-05-16 16:45] LABS: Bedside Glucose 125 mg/dL (74-106)
[2024-05-16] MEDS: Calcitriol 0.25 MCG Capsule 0.5 MCG PO (17:17)
[2024-05-16] MEDS: Juven (unflavored) Packet 1 PACKET PO (17:17)
[2024-05-16] MEDS: DiphenhydrAMINE 25 MG Capsule PO (23:05)
[2024-05-16 23:17] LABS: Bedside Glucose 151 mg/dL (74-106)
[2024-05-17 04:52] VITALS: BMI 28.0
[2024-05-17 06:51] VITALS: BP 114/57; PULSE 67; RESP 16; TEMP 36.4; O2SAT 94
[2024-05-17 06:52] VITALS: BP 114/57; PULSE 67
[2024-05-17] MEDS: Acetaminophen 325 MG Tablet 650 MG PO ×3 (06:52→20:37)
[2024-05-17] MEDS: oxyCODONE 5 MG Tablet PO ×3 (06:52→20:37)
[2024-05-17] MEDS: Metoclopramide 10 MG/2 ML Vial 5 MG IV ×3 (06:53→18:36)
[2024-05-17] MEDS: Levothyroxine 25 MCG TABLET PO (06:53)
[2024-05-17 07:18] LABS: Bedside Glucose 109 mg/dL (74-106)
[2024-05-17 07:27] LABS: Absolute Lymphocyte Count 0.65 X10^3/uL (0.83-4.51); Absolute Neutrophil Count 4.4 X10^3/uL (2.0-7.7); Basophil# 0.02 X10^3/uL; Basophil% 0.3 % (0-1); Eosinophil# 0.16 X10^3/uL; Eosinophils% 2.6 % (0-5); Hematocrit 22.7 % (37-47); Hemoglobin 6.9 g/dL (12.0-15.0); Lymphocyte # 0.65 X10^3/ul (0.83-4.51); Lymphocyte % 10.7 % (19-41); Mean Corp Hgb Conc 30.4 g/dL (32-36); Mean Corpuscular Hgb 28.3 pg (27.0-32.0); Mean Platelet Vol. 10.7 fl (6.2-12.0); Monocyte# 0.83 X10^3/uL; Monocyte% 13.7 % (0-10); NRBC Flagged by Analyzer 0 % (0-5); Neutrophil # 4.39 X10^3/uL (2.7-7.7); Neutrophil % 72.2 % (47-70); Platelet Count 268 K/mm3 (150-450); RBC Distribution Width CV 17.8 % (11.6-14.6); RBC Distribution Width SD 59.9 fl (35.1-43.9); Red Blood Count 2.44 M/mm3 (4.2-5.4); White Blood Count 6.1 K/mm3 (4.4-11.0)
[2024-05-17 08:02] LABS: Anion Gap 9 (5-15); BUN 68 mg/dL (7-18); BUN/Creat Ratio 12.5 RATIO (10-20); Calcium,Total 7.8 mg/dL (8.5-10.1); Chloride 103 mmol/L (98-107); Creatinine, Serum 5.46 mg/dL (0.55-1.02); EST Glomerular Filtration Rate 9 mL/min (>60); Est Glom Filt Rate - Afr Amer 10 mL/min (>60); Estimated Creatinine Clearance 11.47 ml/min; Glucose 127 mg/dL (74-106); Potassium 4.7 mmol/L (3.5-5.1); Sodium Level 136 mmol/L (136-145)
--- NOTE | 2024-05-17 08:23 | CASEMGMT ---
[facility]charge [facility]. Requested that auth for ILOC through [facility] be submitted. Rekha Moore DC Planning Asst.
--- NOTE | 2024-05-17 09:35 | CASEMGMT ---
Addendum entered by Verito Abreu 05/17/24 15:15: Social Work LUCRETIA spoke with Jonna Julian CM who requested a phone conversation with pt so they could talk to JFS together to get insurance situation fixed. LUCRETIA provided pt with SW phone and connected her with Jonna. Jonna and pt spoke with JFS. JFS had no record of conversation with pt and Jonna in April which is why pt's case was closed. According to Jonna, after conversation today, pt's insurance has been renewed as of today and will be retroactive to 05/10. Pt will have [employer] insurance. Jonna is uncertain when this insurance will show as active in the system. Phone call to Darin, admission coordinator at [facility]. Darin will contact Jonna regarding [employer] insurance and [facility] Plan: [facility], pending precert ERIN Masters Addendum entered by Verito Abreu 05/17/24 13:36: Social Work LUCRETIA placed second call to Eliel Coyle CM and updated that pt is not enrolled with [employer] or Medicaid. Jonna to [facility] to rect[facility] and will call this LUCRETIA back. ERIN Masters Original Note: Social Work LUCRETIA informed by [facility] that [employer] and Medicaid is showing that pt's insurance coverage ended 05/09. [facility] to clarify insurance coverage. Will await return call. ERIN Masters
[2024-05-17] MEDS: Ferrous Sulfate 325 MG Tablet PO (10:00)
[2024-05-17] MEDS: Juven (unflavored) Packet 1 PACKET PO (10:01)
[2024-05-17] MEDS: Folic Acid 1 MG Tablet PO (10:01)
[2024-05-17] MEDS: Calcium Acetate 667 MG Capsule PO ×3 (10:01→16:23)
[2024-05-17] MEDS: Menthol/Lanolin/Calamine/Znox 113 GM Tube 1 APPLIC TOPICAL ×2 (10:02→20:39)
[2024-05-17] MEDS: Paroxetine 20 MG Tablet PO (10:03)
[2024-05-17] MEDS: buPROPion (XL) 150 MG TABLET.XL PO (10:04)
[2024-05-17] MEDS: Pantoprazole Sodium 40 MG Tablet PO (10:04)
[2024-05-17] MEDS: Atorvastatin Calcium 40 MG Tablet PO (10:33)
[2024-05-17] MEDS: Smz/Tmp Ds Tablet 0.5 TABLET PO (11:49)
--- NOTE | 2024-05-17 12:59 | PN.RENAL_ITS ---
Subjective Subjective Sitting in chair. No complaints. Objective Data Objective Data Vital Signs: Vital Signs Temp Pulse Resp BP Pulse Ox O2 Del Method O2 Flow Rate 97.6 F L 67 16 114/57 L 94 Room Air 2 05/17/24 06:51 05/17/24 06:52 05/17/24 06:51 05/17/24 06:52 05/17/24 06:51 05/17/24 06:51 05/15/24 22:00 Oxygen Flow Rate (L/min) 2 Oxygen Delivery Method Room Air Weight: 76.2 kg Body Mass Index (BMI) 28.0 Intake & Output: Intake and Output for Last 24 Hours 05/15/24 05/16/24 05/17/24 23:59 23:59 23:59 Output Total 1200 / 1200 Balance -1200 / -1200 Lab / Micro Data 05/17/24 06:39 05/17/24 06:39 Labs: Laboratory Results - last 24 hr 05/16/24 16:26: POC Glucose 125 H 05/16/24 22:52: POC Glucose 151 H 05/17/24 06:39: WBC 6.1, RBC 2.44 L, Hgb 6.9 L, Hct 22.7 L, MCV 93.0, MCH 28.3, MCHC 30.4 L, RDW Std Deviation 59.9 H, RDW Coeff of Fior 17.8 H, Plt Count 268, MPV 10.7, Immature Gran % (Auto) 0.500, Neut % (Auto) 72.2 H, Lymph % (Auto) 10.7 L, [place] % (Auto) 13.7 H, Eos % (Auto) 2.6, Baso % (Auto) 0.3, Absolute Neuts (auto) 4.4, Absolute Lymphs (auto) 0.65 L, Nucleated RBC % 0, Sodium 136, Potassium 4.7, Chloride 103, Carbon Dioxide 24.0, Anion Gap 9, BUN 68 H, C reatinine 5.46 H, Estim Creat Clear Calc 11.47, Est GFR (MDRD) Af Amer 10 L, Est GFR (MDRD) Non-Af 9 L, BUN/Creatinine Ratio 12.5, Glucose 127 H, Calcium 7.8 L 05/17/24 06:50: POC Glucose 109 H Micro: Microbiology 05/10/24 10:18 Bone - 5th Toe Gram Stain - Final 05/10/24 10:18 Bone - 5th Toe Wound Culture - Final Staphylococcus aureus Enterobacter cloacae complex 05/10/24 10:18 Bone - 5th Toe Anaerobic Culture - Preliminary Checking for anaerobes, further studies to follow. 05/10/24 10:18 Bone - 5th Toe Gram Stain - Final 05/10/24 10:18 Bone - 5th Toe Wound Culture - Final Staphylococcus aureus Alcaligenes faecalis ssp faeca 05/10/24 10:18 Bone - 5th Toe Anaerobic Culture - Final No anaerobic bacteria isolated. 05/14/24 20:50 Stool Stool Occult Blood (MIKE) - Final Occult Blood Positive Physical Exam Narrative Alert and oriented x 3, no apparent distress S1-S2, RRR Lung sounds clear Abdomen soft, nontender Bilateral lower legs wrapped Tunneled dialysis catheter dressing clean, dry and intact Assessment & Plan Assessment/Plan (1) ESRD (end stage renal disease) on dialysis: PLAN: - ESRD on hemodialysis Tuesday; no acute indication for [employer] today. Next dialysis tomorrow -Acute anemia of chronic disease; C-scope: Diverticulosis, exam otherwise normal. EGD: Oozing gastric ulcer, chronic duodenitis, biopsied. Patient receives JORGE and iron with dialysis -Chronic ulcerations right and left foot, osteomyelitis; wound culture grew Staph aureus, enterobacter and alcaligenes faecalis; ID consulted, limited antibiotic options based on allergies, on oral Bactrim
--- NOTE | 2024-05-17 13:22 | PN_ITS ---
Subjective Subjective Patient seen and examined. She had no complaints this morning and had an uneventful night. Review of symptoms otherwise negative. Hemoglobin today 6.9. She has otherwise remained hemodynamically stable. Objective Data Objective Data Vital Signs: Vital Signs Temp Pulse Resp BP Pulse Ox O2 Del Method O2 Flow Rate 97.6 F L 67 16 114/57 L 94 Room Air 2 05/17/24 06:51 05/17/24 06:52 05/17/24 06:51 05/17/24 06:52 05/17/24 06:51 05/17/24 06:51 05/15/24 22:00 Oxygen Flow Rate (L/min) 2 Oxygen Delivery Method Room Air Weight: 167 lb 15.876 oz Body Mass Index (BMI) 28.0 Intake & Output: Intake and Output for Last 24 Hours 05/15/24 05/16/24 05/17/24 23:59 23:59 23:59 Output Total 1200 / 1200 Balance -1200 / -1200 Lab / Micro Data 05/17/24 06:39 05/17/24 06:39 Labs: Laboratory Results - last 24 hr 05/16/24 16:26: POC Glucose 125 H 05/16/24 22:52: POC Glucose 151 H 05/17/24 06:39: WBC 6.1, RBC 2.44 L, Hgb 6.9 L, Hct 22.7 L, MCV 93.0, MCH 28.3, MCHC 30.4 L, RDW Std Deviation 59.9 H, RDW Coeff of Fior 17.8 H, Plt Count 268, MPV 10.7, Immature Gran % (Auto) 0.500, Neut % (Auto) 72.2 H, Lymph % (Auto) 10.7 L, [place] % (Auto) 13.7 H, Eos % (Auto) 2.6, Baso % (Auto) 0.3, Absolute Neuts (auto) 4.4, Absolute Lymphs (auto) 0.65 L, Nucleated RBC % 0, Sodium 136, Potassium 4.7, Chloride 103, Carbon Dioxide 24.0, Anion Gap 9, BUN 68 H, C reatinine 5.46 H, Estim Creat Clear Calc 11.47, Est GFR (MDRD) Af Amer 10 L, Est GFR (MDRD) Non-Af 9 L, BUN/Creatinine Ratio 12.5, Glucose 127 H, Calcium 7.8 L 05/17/24 06:50: POC Glucose 109 H Micro: Microbiology 05/10/24 10:18 Bone - 5th Toe Gram Stain - Final 05/10/24 10:18 Bone - 5th Toe Wound Culture - Final Staphylococcus aureus Enterobacter cloacae complex 05/10/24 10:18 Bone - 5th Toe Anaerobic Culture - Preliminary Checking for anaerobes, further studies to follow. 05/10/24 10:18 Bone - 5th Toe Gram Stain - Final 05/10/24 10:18 Bone - 5th Toe Wound Culture - Final Staphylococcus aureus Alcaligenes faecalis ssp faeca 05/10/24 10:18 Bone - 5th Toe Anaerobic Culture - Final No anaerobic bacteria isolated. 05/14/24 20:50 Stool Stool Occult Blood (MIKE) - Final Occult Blood Positive Physical Exam Const alert, oriented x3, no apparent distress, average body habitus and healthy appearing General Appearance: cooperative and comfortable Orientation / Consciousness: awake, oriented to person, oriented to place and oriented to time HEENT normocephalic, head/scalp atraumatic, hearing grossly normal bilaterally, nasal mucous membranes and turbinates normal, moist oral mucous membranes and oropharynx normal Eyes PERRL, EOMs intact bilaterally and conjunctivae normal Neck full ROM, no lymphadenopathy, supple, no JVD, thyroid normal and no carotid bruits General: trachea midline Lymph Lymphatic: no lymphadenopathy noted and no lymphedema noted Chest inspection of chest normal Resp normal respiratory effort, normal air movement, no retractions, no use of accessory muscles and clear to auscultation bilaterally Auscultation: Negative for rales, rhonchi or wheezes Cardio regular rate, regular rhythm, S1 normal heart sound, S2 normal heart sound, no murmurs, no rub, no gallops and peripheral pulses 2+ throughout GI normal to inspection, nondistended, normoactive bowel sounds, soft to palpation, non-tender and non-distended Back/Spine normal ROM Extremity normal to inspection, full ROM, normal capillary refill, no clubbing, cyanosis or edema, no calf tenderness and no pedal edema General Extremity: no tenderness to palpation of joints or extremities Skin no rashes or lesions noted Skin Narrative: both lower extremities wrapped in bandage and in surgical boots General Skin Exam: no breakdown Neuro oriented x3, CN's II-XII intact bilaterally, moves all extremities, no focal motor deficits, no sensory deficits noted and deep tendon reflexes 2+ bilaterally Sensorium / Orientation: awake and alert Speech: speech normal Motor Exam: strength 5/5 throughout and general weakness Psych mental status grossly normal, thought process normal, cooperative and affect normal Appearance: appropriate Assessment & Plan Assessment/Plan (1) Short Achilles tendon (acquired), left ankle: (2) Short Achilles tendon (acquired), right ankle: (3) Anemia: PLAN: Plan #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 * PT/OT on board * fall precautions * bone cultures grew Staph aureus and Alcaligenes faecalis with wound cultures growing Enterobacter cloacae. * ID consulted. Patient started on p.o. Bactrim for 6-week course. * #anemia * Hemoglobin dropped to 5.6 and she had to be transfused. * stool for focal occult blood was positive. Gastroenterology on board. * Had EGD which showed multiple oozing gastric ulcers which were cauterised * heparin and aspirin discontinued * Hb today is 6.9. will repeat H&H and transfuse with a unit of blood tomorrow with dialysis if it is < 7 #ESRD: On hemodialysis on Wednesdays and Fridays. Nephrology on board. #Debility and weakness: PT OT on board. Fall precautions. #Type 2 diabetes mellitus: Complicated by neuropathy and diabetic foot ulcers as well as Charcot foot. On insulin. Checks ACHS. #Depression with anxiety: On antidepressants #Hyperlipidemia: On statin # GERD: On PPI # History of chronic back pain: Gets episodic epidural steroid injections on outpatient basis. #Hypothyroidism: on synthroid DVT prophylaxis; SCDs. No anticoagulation due to anemia. Heparin DC'd Disposition: still awaiting placement. Charges/Coding Visit Charges Inpatient E&M: 66660 Subs Hosp L2
[2024-05-17 16:16] LABS: Hematocrit 24.3 % (37-47); Hemoglobin 7.5 g/dL (12.0-15.0)
[2024-05-17] MEDS: Insulin Lispro 100 UNIT/ML INSULN.PEN SC (16:22)
[2024-05-17 16:29] LABS: Bedside Glucose 141 mg/dL (74-106)
[2024-05-17 16:36] VITALS: BP 120/68; PULSE 64
[2024-05-17 16:50] VITALS: BP 120/68; PULSE 64; RESP 14; TEMP 36.6; O2SAT 97
[2024-05-17] MEDS: 0.9% Saline Lock 10 ML Syringe IV ×2 (18:38→20:40)
--- NOTE | 2024-05-17 19:13 | PN.GI_ITS ---
Subjective Subjective Patient underwent an upper endoscopy and colonoscopy yesterday for anemia. Hemoglobin today is 6.9. She has not seen any signs of bleeding. Objective Data Objective Data Vital Signs: Vital Signs Temp Pulse Resp BP Pulse Ox O2 Del Method O2 Flow Rate 97.9 F 64 14 120/68 97 Room Air 2 05/17/24 16:50 05/17/24 16:50 05/17/24 16:50 05/17/24 16:50 05/17/24 16:50 05/17/24 16:50 05/15/24 22:00 Oxygen Flow Rate (L/min) 2 Oxygen Delivery Method Room Air Weight: 167 lb 15.876 oz Body Mass Index (BMI) 28.0 Intake & Output: Intake and Output for Last 24 Hours 05/15/24 05/16/24 05/17/24 23:59 23:59 23:59 Intake Total 880 / 880 Output Total 1200 / 1200 Balance -1200 / -1200 880 / 880 Lab / Micro Data 05/17/24 15:45 05/17/24 06:39 Labs: Laboratory Results - last 24 hr 05/16/24 22:52: POC Glucose 151 H 05/17/24 06:39: WBC 6.1, RBC 2.44 L, Hgb 6.9 L, Hct 22.7 L, MCV 93.0, MCH 28.3, MCHC 30.4 L, RDW Std Deviation 59.9 H, RDW Coeff of Fior 17.8 H, Plt Count 268, MPV 10.7, Immature Gran % (Auto) 0.500, Neut % (Auto) 72.2 H, Lymph % (Auto) 10.7 L, [place] % (Auto) 13.7 H, Eos % (Auto) 2.6, Baso % (Auto) 0.3, Absolute Neuts (auto) 4.4, Absolute Lymphs (auto) 0.65 L, Nucleated RBC % 0, Sodium 136, Potassium 4.7, Chloride 103, Carbon Dioxide 24.0, Anion Gap 9, BUN 68 H, C reatinine 5.46 H, Estim Creat Clear Calc 11.47, Est GFR (MDRD) Af Amer 10 L, Est GFR (MDRD) Non-Af 9 L, BUN/Creatinine Ratio 12.5, Glucose 127 H, Calcium 7.8 L 05/17/24 06:50: POC Glucose 109 H 05/17/24 11:52: POC Glucose 141 H 05/17/24 15:45: Hgb 7.5 L, Hct 24.3 L Micro: Microbiology 05/10/24 10:18 Bone - 5th Toe Gram Stain - Final 05/10/24 10:18 Bone - 5th Toe Wound Culture - Final Staphylococcus aureus Enterobacter cloacae complex 05/10/24 10:18 Bone - 5th Toe Anaerobic Culture - Final No anaerobic bacteria isolated. 05/10/24 10:18 Bone - 5th Toe Gram Stain - Final 05/10/24 10:18 Bone - 5th Toe Wound Culture - Final Staphylococcus aureus Alcaligenes faecalis ssp faeca 05/10/24 10:18 Bone - 5th Toe Anaerobic Culture - Final No anaerobic bacteria isolated. 05/14/24 20:50 Stool Stool Occult Blood (MIKE) - Final Occult Blood Positive Physical Exam Const alert, oriented x3, no apparent distress, average body habitus and healthy appearing General Appearance: cooperative and comfortable Orientation / Consciousness: awake, oriented to person, oriented to place and oriented to time HEENT normocephalic, head/scalp atraumatic, hearing grossly normal bilaterally, nasal mucous membranes and turbinates normal, moist oral mucous membranes and oropharynx normal Eyes PERRL, EOMs intact bilaterally and conjunctivae normal Neck full ROM, no lymphadenopathy, supple, no JVD, thyroid normal and no carotid bruits General: trachea midline Lymph Lymphatic: no lymphadenopathy noted and no lymphedema noted Chest inspection of chest normal Resp normal respiratory effort, normal air movement, no retractions, no use of accessory muscles and clear to auscultation bilaterally Auscultation: Negative for rales, rhonchi or wheezes Cardio regular rate, regular rhythm, S1 normal heart sound, S2 normal heart sound, no murmurs, no rub, no gallops and peripheral pulses 2+ throughout GI normal to inspection, nondistended, normoactive bowel sounds, soft to palpation, non-tender and non-distended Back/Spine normal ROM Extremity normal to inspection, full ROM, normal capillary refill, no clubbing, cyanosis or edema, no calf tenderness and no pedal edema General Extremity: no tenderness to palpation of joints or extremities Skin no rashes or lesions noted Skin Narrative: both lower extremities wrapped in bandage and in surgical boots General Skin Exam: no breakdown Neuro oriented x3, CN's II-XII intact bilaterally, moves all extremities, no focal motor deficits, no sensory deficits noted and deep tendon reflexes 2+ bilaterally Sensorium / Orientation: awake and alert Speech: speech normal Motor Exam: strength 5/5 throughout and general weakness Psych mental status grossly normal, thought process normal, cooperative and affect normal Appearance: appropriate Assessment & Plan Assessment/Plan (1) Anemia: (2) Adult failure to thrive: (3) Hyperglycemia: (4) ESRD (end stage renal disease) on dialysis: PLAN: Plan Patient is a 58-year-old female who presented [facility] ED on 05/04/2024 with adult failure to thrive, bone infection, anemia of chronic disease with acute blood loss anemia. Acute on chronic blood loss anemia ? Patient has never had a colonoscopy in the past. She does take aspirin with puts her at risk for upper GI bleed. Despite her being on iron and getting Epo, along with blood transfusions she still is persistently anemic. She should undergo upper and lower endoscopy to evaluate upper lower GI tract. She should also have studies for the celiac disease, inflammatory bowel disease, protein electrophoresis, hemolysis workup including LDH, indirect bilirubin and possible hemoglobin electrophoresis. 05/17/2024- EGD Findings: The examined esophagus was normal. Four oozing linear gastric ulcers with pigmented material were found in the cardia and in the gastric body. The largest lesion was 6 mm in largest dimension. Coagulation for hemostasis using heater probe was successful. Estimated blood loss was minimal. Diffuse moderate inflammation characterized by erythema, friability and granularity was found in the duodenal bulb. Biopsies were taken with a cold forceps for histology. Verification of patient identification for the specimen was done. Estimated blood loss was minimal. Impression: - Normal esophagus. - Oozing gastric ulcers with pigmented material. Treated with a heater probe. - Chronic duodenitis. Biopsied. Recommendation: - [facility]. - Resume regular diet. - Continue present medications. - Await pathology results. Colonoscopy Findings: The perianal and digital rectal examinations were normal. A few small-mouthed diverticula were found in the recto-sigmoid colon and sigmoid colon. The exam was otherwise without abnormality on direct and retroflexion views. Impression: - Diverticulosis in the recto-sigmoid colon and in the sigmoid colon. - The examination was otherwise normal on direct and retroflexion views. - No specimens collected. Hemoglobin is up to 7.5. Continue to follow hemoglobin. Charges/Coding Visit Charges Inpatient E&M: 59194 Subs Hosp L3
[2024-05-17 20:34] VITALS: BP 123/55; PULSE 72; RESP 18; TEMP 36.8; O2SAT 95
[2024-05-17] MEDS: Carvedilol 25 MG Tablet PO (20:36)
[2024-05-17] MEDS: MELATONIN 3 MG TABLET PO (20:36)
[2024-05-17 20:41] LABS: Bedside Glucose 196 mg/dL (74-106)
[2024-05-17 23:22] LABS: Bedside Glucose 108 mg/dL (74-106)
[2024-05-17 23:36] VITALS: BP 114/48; PULSE 71; RESP 20; TEMP 36.6; O2SAT 99
[2024-05-18] VITALS (17 sets, daily range): BP systolic 104–286; BP diastolic 53–80; PULSE 64–84; RESP 14–18; TEMP 36.4–36.8; O2SAT 93–100; BMI 28.0; BMI 29.7
[2024-05-18 06:11] LABS: Absolute Lymphocyte Count 0.58 X10^3/uL (0.83-4.51); Absolute Neutrophil Count 3.8 X10^3/uL (2.0-7.7); Basophil# 0.02 X10^3/uL; Basophil% 0.4 % (0-1); Eosinophil# 0.18 X10^3/uL; Eosinophils% 3.4 % (0-5); Hemoglobin 7.2 g/dL (12.0-15.0); Lymphocyte # 0.58 X10^3/ul (0.83-4.51); Lymphocyte % 11.1 % (19-41); Mean Corp Hgb Conc 31.3 g/dL (32-36); Mean Corpuscular Hgb 28.9 pg (27.0-32.0); Mean Corpuscular Volume 92.4 fL (81-99); Mean Platelet Vol. 10.7 fl (6.2-12.0); Monocyte% 11.5 % (0-10); NRBC Flagged by Analyzer 0 % (0-5); Neutrophil # 3.84 X10^3/uL (2.7-7.7); Neutrophil % 73.2 % (47-70); POSITIVE DIFFERENTIAL YES; Platelet Count 289 K/mm3 (150-450); RBC Distribution Width CV 17.5 % (11.6-14.6); RBC Distribution Width SD 58.7 fl (35.1-43.9); Red Blood Count 2.49 M/mm3 (4.2-5.4); White Blood Count 5.2 K/mm3 (4.4-11.0)
[2024-05-18] MEDS: Levothyroxine 25 MCG TABLET PO (06:22)
[2024-05-18 06:48] LABS: Anion Gap 9 (5-15); BUN 83 mg/dL (7-18); BUN/Creat Ratio 13.4 RATIO (10-20); Calcium,Total 8.1 mg/dL (8.5-10.1); Chloride 99 mmol/L (98-107); Creatinine, Serum 6.21 mg/dL (0.55-1.02); EST Glomerular Filtration Rate 7 mL/min (>60); Est Glom Filt Rate - Afr Amer 9 mL/min (>60); Estimated Creatinine Clearance 10.08 ml/min; Glucose 101 mg/dL (74-106); Sodium Level 130 mmol/L (136-145)
[2024-05-18] MEDS: 0.9% Normal Saline 1,000 ML IV.SOLN. 1000 ML OPERA.SITE (09:10)
[2024-05-18] MEDS: PureFlow B 2K Dialysis Soln 1 BAG 6 BAG PF (09:10)
[2024-05-18] MEDS: 0.9% Saline Lock 10 ML Syringe IV (09:11)
[2024-05-18] MEDS: Heparin 10,000 UNITS/10 ML Vial IV (09:11)
[2024-05-18] MEDS: Epoetin Alfa epbx 10,000 UNIT/ML 20000 UNIT IV (09:11)
[2024-05-18] MEDS: Acetaminophen 325 MG Tablet 650 MG PO ×2 (09:30→18:33)
[2024-05-18] MEDS: oxyCODONE 5 MG Tablet PO ×4 (09:33→22:36)
[2024-05-18] MEDS: Folic Acid 1 MG Tablet PO (10:24)
[2024-05-18] MEDS: Juven (unflavored) Packet 1 PACKET PO ×2 (10:25→17:07)
[2024-05-18] MEDS: Calcium Acetate 667 MG Capsule PO ×3 (10:25→17:07)
[2024-05-18] MEDS: Menthol/Lanolin/Calamine/Znox 113 GM Tube 1 APPLIC TOPICAL ×2 (10:26→20:35)
[2024-05-18] MEDS: Pantoprazole Sodium 40 MG Tablet PO (10:27)
[2024-05-18] MEDS: Paroxetine 20 MG Tablet PO (10:27)
[2024-05-18] MEDS: buPROPion (XL) 150 MG TABLET.XL PO (10:28)
--- NOTE | 2024-05-18 11:33 | PN_ITS ---
Subjective Subjective Denies constitutional symptoms. Patient been receiving blood transfusions. Notes some increased pain to left lower extremity. Strikethrough to right lower extremity dressing overnight. No other complaints. Objective Data Objective Data Vital Signs: Vital Signs Temp Pulse Resp BP Pulse Ox O2 Del Method O2 Flow Rate 97.8 F 69 18 132/56 H 94 Room Air 2 05/18/24 10:09 05/18/24 10:09 05/18/24 10:09 05/18/24 10:05/18/24 10:05/18/24 10:09 05/15/24 22:00 Oxygen Flow Rate (L/min) 2 Oxygen Delivery Method Room Air Weight: 80.9 kg Body Mass Index (BMI) 29.7 Intake & Output: Intake and Output for Last 24 Hours 05/16/24 05/17/24 05/18/24 23:59 23:59 23:59 Intake Total 880 / 880 Output Total 1200 / 1200 2340 / 2340 Balance -1200 / -1200 880 / 880 -2340 / -2340 Lab / Micro Data 05/18/24 05:16 05/18/24 05:16 Labs: Laboratory Results - last 24 hr 05/17/24 11:52: POC Glucose 141 H 05/17/24 15:45: Hgb 7.5 L, Hct 24.3 L 05/17/24 16:22: POC Glucose 196 H 05/17/24 20:41: POC Glucose 108 H 05/18/24 05:16: WBC 5.2, RBC 2.49 L, Hgb 7.2 L, Hct 23.0 L, MCV 92.4, MCH 28.9, MCHC 31.3 L, RDW Std Deviation 58.7 H, RDW Coeff of Fior 17.5 H, Plt Count 289, MPV 10.7, Immature Gran % (Auto) 0.400, Neut % (Auto) 73.2 H, Lymph % (Auto) 11.1 L, [place] % (Auto) 11.5 H, Eos % (Auto) 3.4, Baso % (Auto) 0.4, Absolute Neuts (auto) 3.8, Absolute Lymphs (auto) 0.58 L, Nucleated RBC % 0, Sodium 130 L , Potassium 5.0, Chloride 99, Carbon Dioxide 22.0, Anion Gap 9, BUN 83 H, C reatinine 6.21 H, Estim Creat Clear Calc 10.08, Est GFR (MDRD) Af Amer 9 L, Est GFR (MDRD) Non-Af 7 L, BUN/Creatinine Ratio 13.4, Glucose 101, Calcium 8.1 L 05/18/24 08:35: Blood Type O POSITIVE, Antibody Screen NEGATIVE, Crossmatch See Detail Micro: Microbiology 05/10/24 10:18 Bone - 5th Toe Gram Stain - Final 05/10/24 10:18 Bone - 5th Toe Wound Culture - Final Staphylococcus aureus Enterobacter cloacae complex 05/10/24 10:18 Bone - 5th Toe Anaerobic Culture - Final No anaerobic bacteria isolated. 05/10/24 10:18 Bone - 5th Toe Gram Stain - Final 05/10/24 10:18 Bone - 5th Toe Wound Culture - Final Staphylococcus aureus Alcaligenes faecalis ssp faeca 05/10/24 10:18 Bone - 5th Toe Anaerobic Culture - Final No anaerobic bacteria isolated. 05/14/24 20:50 Stool Stool Occult Blood (MIKE) - Final Occult Blood Positive Physical Exam Narrative Neurovascular status unchanged bilateral lower extremity. Incision sites macerated but well-approximated with intact agustin. Mild sanguinous drainage noted. Plantar foot wounds demonstrate mild. Mild periwound maceration with stable granular clean bases. No equinovarus deformity noted. No sign of DVT. Const alert and oriented x3 Assessment & Plan Assessment/Plan (1) ESRD (end stage renal disease) on dialysis: PLAN: Plan Exam performed. ID on board; plan for p.o. Bactrim for 6 weeks. Due to increased maceration to incisional sites will return to daily dressing changes with a soft dressing consisting of Betadine 4 x 4's Kerlix and [place] bandage. Upon resolution of maceration will return to splinting. Due to lack of stability of bilateral ankles recommend nonweightbearing to bilateral lower extremity until we reapply splints. Will continue to follow closely.
--- NOTE | 2024-05-18 11:38 | CASEMGMT ---
Social Work SW spoke with Darin from [facility] who states pt does not show active with [facility] but active with Medicaid. Phone call to Eliel Coyle. She is out today. Phone call to Hiro at [facility] who checked system and states pt is now active with [facility] [facility]. LUCRETIA updated Darin at [facility]. Darin to look into this and attempt to get precert with [facility]. Pt is aware of insurance situation and is agreeable that plan continues to be placement at [facility]. ERIN Masters
[2024-05-18] MEDS: Atorvastatin Calcium 40 MG Tablet PO (12:06)
[2024-05-18] MEDS: Smz/Tmp Ds Tablet 0.5 TABLET PO (12:07)
[2024-05-18] MEDS: Carvedilol 25 MG Tablet PO ×2 (12:08→20:37)
[2024-05-18] MEDS: amLODIPine 5 MG Tablet PO (12:08)
[2024-05-18] MEDS: Insulin Lispro 100 UNIT/ML INSULN.PEN SC ×3 (12:10→20:44)
--- NOTE | 2024-05-18 12:55 | PCM.PN.ID ---
Physical Exam Narrative Feeling ok, mild nausea, foot wrapped, no fever Const alert and no apparent distress General Appearance: cooperative Resp normal air movement and clear to auscultation bilaterally Cardio regular rate and regular rhythm GI soft to palpation, non-tender and non-distended Skin Skin Narrative: feet wrapped ID ID: Route of nutrition/ use of supplements: [] Nutritional Intake: [] IV Site: [] Tirado Catheter: [] Assessment & Plan Assessment/Plan (1) Other acute osteomyelitis, right ankle and foot: PLAN: S/p 05/10/[address] Julian for bilateral lower extremity fifth metatarsal base excision and peroneus brevis tendon transfer. Surg cx with MRSA, alcaligenes, and enterobacter. Discussed options, limited abx based on allergies and ESRD, started on po bactrim which should have good bone penetration, plan on 6 weeks total course. Cont bactrim. Will follow (2) Other acute osteomyelitis, left ankle and foot:
--- NOTE | 2024-05-18 13:03 | PN_ITS ---
Subjective Subjective Patient seen and examined. She has no active complaints. Her hemoglobin has dropped to 7.2 today. Will transfuse 1 unit of packed red blood cells. She says she has had a lot of bleeding from her wounds on her feet. She is awaiting dressing change by podiatry. Objective Data Objective Data Vital Signs: Vital Signs Temp Pulse Resp BP Pulse Ox O2 Del Method O2 Flow Rate 98.2 F 68 16 138/64 H 93 Room Air 2 05/18/24 11:58 05/18/24 11:58 05/18/24 11:58 05/18/24 11:58 05/18/24 11:58 05/18/24 11:58 05/15/24 22:00 Oxygen Flow Rate (L/min) 2 Oxygen Delivery Method Room Air Weight: 178 lb 5.663 oz Body Mass Index (BMI) 29.7 Intake & Output: Intake and Output for Last 24 Hours 05/16/24 05/17/24 05/18/24 23:59 23:59 23:59 Intake Total 880 / 880 0 / 0 Output Total 1200 / 1200 2340 / 2340 Balance -1200 / -1200 880 / 880 -2340 / -2340 Lab / Micro Data 05/18/24 05:16 05/18/24 05:16 Labs: Laboratory Results - last 24 hr 05/17/24 11:52: POC Glucose 141 H 05/17/24 15:45: Hgb 7.5 L, Hct 24.3 L 05/17/24 16:22: POC Glucose 196 H 05/17/24 20:41: POC Glucose 108 H 05/18/24 05:16: WBC 5.2, RBC 2.49 L, Hgb 7.2 L, Hct 23.0 L, MCV 92.4, MCH 28.9, MCHC 31.3 L, RDW Std Deviation 58.7 H, RDW Coeff of Fior 17.5 H, Plt Count 289, MPV 10.7, Immature Gran % (Auto) 0.400, Neut % (Auto) 73.2 H, Lymph % (Auto) 11.1 L, [place] % (Auto) 11.5 H, Eos % (Auto) 3.4, Baso % (Auto) 0.4, Absolute Neuts (auto) 3.8, Absolute Lymphs (auto) 0.58 L, Nucleated RBC % 0, Sodium 130 L , Potassium 5.0, Chloride 99, Carbon Dioxide 22.0, Anion Gap 9, BUN 83 H, C reatinine 6.21 H, Estim Creat Clear Calc 10.08, Est GFR (MDRD) Af Amer 9 L, Est GFR (MDRD) Non-Af 7 L, BUN/Creatinine Ratio 13.4, Glucose 101, Calcium 8.1 L 05/18/24 08:35: Blood Type O POSITIVE, Antibody Screen NEGATIVE, Crossmatch See Detail Micro: Microbiology 05/10/24 10:18 Bone - 5th Toe Gram Stain - Final 05/10/24 10:18 Bone - 5th Toe Wound Culture - Final Staphylococcus aureus Enterobacter cloacae complex 05/10/24 10:18 Bone - 5th Toe Anaerobic Culture - Final No anaerobic bacteria isolated. 05/10/24 10:18 Bone - 5th Toe Gram Stain - Final 05/10/24 10:18 Bone - 5th Toe Wound Culture - Final Staphylococcus aureus Alcaligenes faecalis ssp faeca 05/10/24 10:18 Bone - 5th Toe Anaerobic Culture - Final No anaerobic bacteria isolated. 05/14/24 20:50 Stool Stool Occult Blood (MIKE) - Final Occult Blood Positive Physical Exam Const alert, oriented x3, no apparent distress, average body habitus and healthy appearing General Appearance: cooperative, comfortable, well kempt and well developed Orientation / Consciousness: awake, oriented to person, oriented to place and oriented to time HEENT normocephalic, head/scalp atraumatic, hearing grossly normal bilaterally, nasal mucous membranes and turbinates normal, moist oral mucous membranes and oropharynx normal Eyes PERRL, EOMs intact bilaterally and conjunctivae normal Neck full ROM, no lymphadenopathy, supple, no JVD, thyroid normal and no carotid bruits General: trachea midline Lymph Lymphatic: no lymphadenopathy noted and no lymphedema noted Chest inspection of chest normal Resp normal respiratory effort, normal air movement, no retractions, no use of accessory muscles and clear to auscultation bilaterally Auscultation: Negative for rales, rhonchi or wheezes Cardio regular rate, regular rhythm, S1 normal heart sound, S2 normal heart sound and no murmurs GI normal to inspection, nondistended, normoactive bowel sounds, soft to palpation, non-tender and non-distended Back/Spine normal ROM Extremity normal to inspection, full ROM and normal capillary refill General Extremity: no tenderness to palpation of joints or extremities Skin Skin Narrative: both lower extremities wrapped in bandage and in surgical boots Neuro oriented x3, CN's II-XII intact bilaterally, moves all extremities, no focal motor deficits, no sensory deficits noted and deep tendon reflexes 2+ bilaterally Sensorium / Orientation: awake and alert Speech: speech normal Motor Exam: strength 5/5 throughout and general weakness Psych mental status grossly normal, thought process normal, cooperative and affect normal Appearance: appropriate Assessment & Plan Assessment/Plan (1) Short Achilles tendon (acquired), left ankle: (2) Short Achilles tendon (acquired), right ankle: (3) Anemia: PLAN: Plan #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 * PT/OT on board * fall precautions * bone cultures grew Staph aureus and Alcaligenes faecalis with wound cultures growing Enterobacter cloacae. * ID consulted. Patient started on p.o. Bactrim for 6-week course. * Patient having bleeding from surgical sites on both feet today. Dressing to be changed by podiatry today. * #anemia * Hemoglobin dropped to 5.6 and she had to be transfused. * stool for focal occult blood was positive. Gastroenterology on board. * Had EGD which showed multiple oozing gastric ulcers which were cauterised * heparin and aspirin discontinued * Hb today is 7.2. Was 6.9 yesterday. Will transfuse with a unit of packed red blood cells today. She says she noted that she was having increased bleeding from her feet. Podiatry to see and change dressing today. * #ESRD: On hemodialysis on Wednesdays and Fridays. Nephrology on board. #Debility and weakness: PT OT on board. Fall precautions. #Type 2 diabetes mellitus: Complicated by neuropathy and diabetic foot ulcers as well as Charcot foot. On insulin. Checks ACHS. #Depression with anxiety: On antidepressants #Hyperlipidemia: On statin # GERD: On PPI # History of chronic back pain: Gets episodic epidural steroid injections on outpatient basis. #Hypothyroidism: on synthroid DVT prophylaxis; SCDs. No anticoagulation due to anemia. Heparin DC'd Disposition: still awaiting placement. Charges/Coding Visit Charges Inpatient E&M: 38584 Subs Hosp L2
[2024-05-18] MEDS: hydrALAZINE 50 MG Tablet PO (13:45)
--- NOTE | 2024-05-18 14:13 | PN.RENAL_ITS ---
Subjective Subjective Follow-up with ESRD. Chest pain is dialysis, 2.5 L being removed, tolerated well. No issues with an axis Objective Data Objective Data Vital Signs: Vital Signs Temp Pulse Resp BP Pulse Ox O2 Del Method O2 Flow Rate 97.5 F L 72 16 151/80 H 97 Room Air 2 05/18/24 13:46 05/18/24 13:46 05/18/24 13:46 05/18/24 13:46 05/18/24 13:46 05/18/24 13:46 05/15/24 22:00 Oxygen Flow Rate (L/min) 2 Oxygen Delivery Method Room Air Weight: 80.9 kg Body Mass Index (BMI) 29.7 Intake & Output: Intake and Output for Last 24 Hours 05/16/24 05/17/24 05/18/24 23:59 23:59 23:59 Intake Total 880 / 880 Output Total 1200 / 1200 2340 / 2340 Balance -1200 / -1200 880 / 880 -2339 / -2339 Lab / Micro Data Attestation: I reviewed the patient's lab results. 05/18/24 05:16 05/18/24 05:16 Labs: Laboratory Results - last 24 hr 05/17/24 11:52: POC Glucose 141 H 05/17/24 15:45: Hgb 7.5 L, Hct 24.3 L 05/17/24 16:22: POC Glucose 196 H 05/17/24 20:41: POC Glucose 108 H 05/18/24 05:16: WBC 5.2, RBC 2.49 L, Hgb 7.2 L, Hct 23.0 L, MCV 92.4, MCH 28.9, MCHC 31.3 L, RDW Std Deviation 58.7 H, RDW Coeff of Fior 17.5 H, Plt Count 289, MPV 10.7, Immature Gran % (Auto) 0.400, Neut % (Auto) 73.2 H, Lymph % (Auto) 11.1 L, [place] % (Auto) 11.5 H, Eos % (Auto) 3.4, Baso % (Auto) 0.4, Absolute Neuts (auto) 3.8, Absolute Lymphs (auto) 0.58 L, Nucleated RBC % 0, Sodium 130 L , Potassium 5.0, Chloride 99, Carbon Dioxide 22.0, Anion Gap 9, BUN 83 H, C reatinine 6.21 H, Estim Creat Clear Calc 10.08, Est GFR (MDRD) Af Amer 9 L, Est GFR (MDRD) Non-Af 7 L, BUN/Creatinine Ratio 13.4, Glucose 101, Calcium 8.1 L 05/18/24 08:35: Blood Type O POSITIVE, Antibody Screen NEGATIVE, Crossmatch See Detail Micro: Microbiology 05/10/24 10:18 Bone - 5th Toe Gram Stain - Final 05/10/24 10:18 Bone - 5th Toe Wound Culture - Final Staphylococcus aureus Enterobacter cloacae complex 05/10/24 10:18 Bone - 5th Toe Anaerobic Culture - Final No anaerobic bacteria isolated. 05/10/24 10:18 Bone - 5th Toe Gram Stain - Final 05/10/24 10:18 Bone - 5th Toe Wound Culture - Final Staphylococcus aureus Alcaligenes faecalis ssp faeca 05/10/24 10:18 Bone - 5th Toe Anaerobic Culture - Final No anaerobic bacteria isolated. 05/14/24 20:50 Stool Stool Occult Blood (MIKE) - Final Occult Blood Positive Physical Exam Const alert, oriented x3, no apparent distress and average body habitus General Appearance: well developed Orientation / Consciousness: oriented to person, oriented to place and oriented to time HEENT normocephalic Head and Scalp: atraumatic External Ear: external ears normal Neck no lymphadenopathy Resp no use of accessory muscles and clear to auscultation bilaterally Cardio Rhythm: abnormal rhythm irregularly irregular GI non-tender Auscultation: normoactive bowel sounds Palpation: soft Skin no rashes or lesions noted Neuro Sensorium / Orientation: awake and alert Psych cooperative Assessment & Plan Assessment/Plan (1) ESRD (end stage renal disease) on dialysis: PLAN: Patient tolerated dialysis today just fine, with no problems hemodynamically or clinically. She has received Retacrit today for ongoing anemia. Planning next session for Tuesday
--- NOTE | 2024-05-18 15:58 | CASEMGMT ---
Social Work LUCRETIA spoke with Darin at [facility]. Darin confirms that precert has been started with Eliel. [facility] states pt will be hospitalized through the weekend for medical reasons. LUCRETIA met with pt and updated that [employer] insurance has been worked at and that precert is pending at [facility]. Pt asking about going to [place]. Lucretia explained that precert has been started at [facility] and cannot be changed at this time. [facility] Pt understanding. Plan: [facility], pending precert with ERIN Cesar
[2024-05-18] MEDS: Calcitriol 0.25 MCG Capsule 0.5 MCG PO (17:07)
[2024-05-18 17:14] LABS: Bedside Glucose 156 mg/dL (74-106)
[2024-05-18] MEDS: Gabapentin 100 MG Capsule PO (18:33)
--- NOTE | 2024-05-18 18:46 | PN.GI_ITS ---
Subjective Subjective Patient did complain of some bleeding from her feet. Her hemoglobin was down to 7.2 today. She is currently getting transfused 1 unit of packed red blood cells. Objective Data Objective Data Vital Signs: Vital Signs Temp Pulse Resp BP Pulse Ox O2 Del Method O2 Flow Rate 97.7 F L 65 16 116/59 L 97 Room Air 2 05/18/24 18:00 05/18/24 18:00 05/18/24 18:00 05/18/24 18:00 05/18/24 18:00 05/18/24 18:00 05/15/24 22:00 Oxygen Flow Rate (L/min) 2 Oxygen Delivery Method Room Air Weight: 178 lb 5.663 oz Body Mass Index (BMI) 29.7 Intake & Output: Intake and Output for Last 24 Hours 05/16/24 05/17/24 05/18/24 23:59 23:59 23:59 Intake Total 880 / 880 / Output Total 1200 / 1200 2340 / 2340 Balance -1200 / -1200 880 / 880 -2339 / -2339 Lab / Micro Data 05/18/24 05:16 05/18/24 05:16 Labs: Laboratory Results - last 24 hr 05/17/24 16:22: POC Glucose 196 H 05/17/24 20:41: POC Glucose 108 H 05/18/24 05:16: WBC 5.2, RBC 2.49 L, Hgb 7.2 L, Hct 23.0 L, MCV 92.4, MCH 28.9, MCHC 31.3 L, RDW Std Deviation 58.7 H, RDW Coeff of Fior 17.5 H, Plt Count 289, MPV 10.7, Immature Gran % (Auto) 0.400, Neut % (Auto) 73.2 H, Lymph % (Auto) 11.1 L, [place] % (Auto) 11.5 H, Eos % (Auto) 3.4, Baso % (Auto) 0.4, Absolute Neuts (auto) 3.8, Absolute Lymphs (auto) 0.58 L, Nucleated RBC % 0, Sodium 130 L , Potassium 5.0, Chloride 99, Carbon Dioxide 22.0, Anion Gap 9, BUN 83 H, C reatinine 6.21 H, Estim Creat Clear Calc 10.08, Est GFR (MDRD) Af Amer 9 L, Est GFR (MDRD) Non-Af 7 L, BUN/Creatinine Ratio 13.4, Glucose 101, Calcium 8.1 L 05/18/24 08:35: Blood Type O POSITIVE, Antibody Screen NEGATIVE, Crossmatch See Detail 05/18/24 12:08: POC Glucose 156 H Micro: Microbiology 05/10/24 10:18 Bone - 5th Toe Gram Stain - Final 05/10/24 10:18 Bone - 5th Toe Wound Culture - Final Staphylococcus aureus Enterobacter cloacae complex 05/10/24 10:18 Bone - 5th Toe Anaerobic Culture - Final No anaerobic bacteria isolated. 05/10/24 10:18 Bone - 5th Toe Gram Stain - Final 05/10/24 10:18 Bone - 5th Toe Wound Culture - Final Staphylococcus aureus Alcaligenes faecalis ssp faeca 05/10/24 10:18 Bone - 5th Toe Anaerobic Culture - Final No anaerobic bacteria isolated. 05/14/24 20:50 Stool Stool Occult Blood (MIKE) - Final Occult Blood Positive Physical Exam Const alert, oriented x3, no apparent distress and average body habitus General Appearance: well developed Orientation / Consciousness: oriented to person, oriented to place and oriented to time HEENT normocephalic Head and Scalp: atraumatic External Ear: external ears normal Neck no lymphadenopathy Resp no use of accessory muscles and clear to auscultation bilaterally Cardio Rhythm: abnormal rhythm irregularly irregular GI non-tender Auscultation: normoactive bowel sounds Palpation: soft Skin no rashes or lesions noted Neuro Sensorium / Orientation: awake and alert Psych cooperative Assessment & Plan Assessment/Plan (1) Anemia: (2) Adult failure to thrive: (3) Hyperglycemia: (4) ESRD (end stage renal disease) on dialysis: PLAN: Plan Patient is a 58-year-old female who presented [facility] ED on 05/04/2024 with adult failure to thrive, bone infection, anemia of chronic disease with acute blood loss anemia. Acute on chronic blood loss anemia ? Patient has never had a colonoscopy in the past. She does take aspirin with puts her at risk for upper GI bleed. Despite her being on iron and getting Epo, along with blood transfusions she still is persistently anemic. She should undergo upper and lower endoscopy to evaluate upper lower GI tract. She should also have studies for the celiac disease, inflammatory bowel disease, protein electrophoresis, hemolysis workup including LDH, indirect bilirubin and possible hemoglobin electrophoresis. 05/17/2024- EGD Findings: The examined esophagus was normal. Four oozing linear gastric ulcers with pigmented material were found in the cardia and in the gastric body. The largest lesion was 6 mm in largest dimension. Coagulation for hemostasis using heater probe was successful. Estimated blood loss was minimal. Diffuse moderate inflammation characterized by erythema, friability and granularity was found in the duodenal bulb. Biopsies were taken with a cold forceps for histology. Verification of patient identification for the specimen was done. Estimated blood loss was minimal. Impression: - Normal esophagus. - Oozing gastric ulcers with pigmented material. Treated with a heater probe. - Chronic duodenitis. Biopsied. Recommendation: - [facility]. - Resume regular diet. - Continue present medications. - Await pathology results. Colonoscopy Findings: The perianal and digital rectal examinations were normal. A few small-mouthed diverticula were found in the recto-sigmoid colon and sigmoid colon. The exam was otherwise without abnormality on direct and retroflexion views. Impression: - Diverticulosis in the recto-sigmoid colon and in the sigmoid colon. - The examination was otherwise normal on direct and retroflexion views. - No specimens collected. Hemoglobin is up to 7.5. Continue to follow hemoglobin. 05/18/2024-patient is doing well and tolerating a diet without any abdominal pain. She is status post upper endoscopy with treatment of gastric ulcers. She should be on PPI therapy twice daily and Carafate 3 times daily for 12 weeks. She should undergo repeat upper endoscopy with capsule study to evaluate her small bowel to see if there is any other GI pathology that would lead to recurrent anemia. Charges/Coding Visit Charges Inpatient E&M: 73657 [facility] Hosp L3
[2024-05-18] MEDS: MELATONIN 3 MG TABLET PO (20:40)
[2024-05-18] MEDS: Sucralfate 1 GM Tablet PO (20:48)
[2024-05-18 21:29] LABS: Bedside Glucose 209 mg/dL (74-106)
[2024-05-18] MEDS: Metoclopramide 10 MG/2 ML Vial 5 MG IV (23:02)
[2024-05-19 00:02] LABS: Bedside Glucose 180 mg/dL (74-106)
[2024-05-19 03:08] VITALS: BP 108/49; PULSE 60; RESP 18; TEMP 36.5; O2SAT 95
[2024-05-19 04:15] VITALS: BMI 28.8
[2024-05-19 06:06] VITALS: BP 110/52; PULSE 60; RESP 16; TEMP 36.6; O2SAT 96
[2024-05-19] MEDS: Sucralfate 1 GM Tablet PO ×3 (06:10→16:11)
[2024-05-19] MEDS: Levothyroxine 25 MCG TABLET PO (06:10)
[2024-05-19] MEDS: oxyCODONE 5 MG Tablet PO ×4 (06:11→21:22)
[2024-05-19] MEDS: 0.9% Saline Lock 10 ML Syringe IV ×3 (06:22→17:05)
[2024-05-19] MEDS: Metoclopramide 10 MG/2 ML Vial 5 MG IV ×4 (06:22→23:39)
[2024-05-19 06:31] LABS: Bedside Glucose 99 mg/dL (74-106)
[2024-05-19 07:33] LABS: Absolute Lymphocyte Count 0.53 X10^3/uL (0.83-4.51); Absolute Neutrophil Count 2.8 X10^3/uL (2.0-7.7); Basophil# 0.03 X10^3/uL; Basophil% 0.7 % (0-1); Eosinophil# 0.19 X10^3/uL; Eosinophils% 4.7 % (0-5); Hematocrit 27.8 % (37-47); Hemoglobin 8.7 g/dL (12.0-15.0); Lymphocyte # 0.53 X10^3/ul (0.83-4.51); Lymphocyte % 13.1 % (19-41); Mean Corp Hgb Conc 31.3 g/dL (32-36); Mean Corpuscular Hgb 28.7 pg (27.0-32.0); Mean Corpuscular Volume 91.7 fL (81-99); Mean Platelet Vol. 11.1 fl (6.2-12.0); Monocyte# 0.44 X10^3/uL; Monocyte% 10.9 % (0-10); NRBC Flagged by Analyzer 0 % (0-5); Neutrophil # 2.84 X10^3/uL (2.7-7.7); Neutrophil % 70.1 % (47-70); POSITIVE COUNT YES; POSITIVE DIFFERENTIAL YES; Platelet Count 271 K/mm3 (150-450); RBC Distribution Width CV 17.7 % (11.6-14.6); RBC Distribution Width SD 59.6 fl (35.1-43.9); Red Blood Count 3.03 M/mm3 (4.2-5.4); White Blood Count 4.1 K/mm3 (4.4-11.0)
[2024-05-19 07:46] LABS: Anion Gap 7 (5-15); BUN 63 mg/dL (7-18); BUN/Creat Ratio 12.9 RATIO (10-20); Calcium,Total 8.5 mg/dL (8.5-10.1); Chloride 101 mmol/L (98-107); Creatinine, Serum 4.87 mg/dL (0.55-1.02); EST Glomerular Filtration Rate 10 mL/min (>60); Est Glom Filt Rate - Afr Amer 12 mL/min (>60); Estimated Creatinine Clearance 13.04 ml/min; Glucose 106 mg/dL (74-106); Potassium 4.8 mmol/L (3.5-5.1); Sodium Level 132 mmol/L (136-145)
[2024-05-19 09:02] VITALS: BP 115/41; PULSE 62; RESP 18; TEMP 36.6; O2SAT 97
[2024-05-19] MEDS: Paroxetine 20 MG Tablet PO (09:23)
[2024-05-19] MEDS: Juven (unflavored) Packet 1 PACKET PO ×2 (09:23→17:05)
[2024-05-19] MEDS: Folic Acid 1 MG Tablet PO (09:24)
[2024-05-19] MEDS: Menthol/Lanolin/Calamine/Znox 113 GM Tube 1 APPLIC TOPICAL ×2 (09:24→21:23)
[2024-05-19] MEDS: Pantoprazole Sodium 40 MG Tablet PO (09:24)
[2024-05-19] MEDS: Atorvastatin Calcium 40 MG Tablet PO (09:24)
[2024-05-19] MEDS: Calcium Acetate 667 MG Capsule PO ×3 (09:24→17:05)
[2024-05-19] MEDS: Ferrous Sulfate 325 MG Tablet PO (09:24)
[2024-05-19] MEDS: Polyethylene Glycol 3350 17 GM PACKET PO (09:24)
[2024-05-19] MEDS: buPROPion (XL) 150 MG TABLET.XL PO (09:31)
--- NOTE | 2024-05-19 10:00 | PCM.PROGNOTE ---
Subjective Subjective Patient seen and examined. SHe complained of nausea. She had no other complaints. She is awaiting placement. Objective Data Objective Data Vital Signs: Vital Signs Temp Pulse Resp BP Pulse Ox O2 Del Method O2 Flow Rate 98 F 62 18 115/41 L 97 Room Air 2 05/19/24 09:02 05/19/24 09:02 05/19/24 09:02 05/19/24 09:02 05/19/24 09:02 05/19/24 09:02 05/15/24 22:00 Oxygen Flow Rate (L/min) 2 Oxygen Delivery Method Room Air Weight: 173 lb 1.006 oz Body Mass Index (BMI) 28.8 Intake & Output: Intake and Output for Last 24 Hours 05/17/24 05/18/24 05/19/24 23:59 23:59 23:59 Intake Total 880 / 880 1345 / 1345 Output Total 2940 / 2940 Balance 880 / 880 -1595 / -1595 Lab / Micro Data 05/19/24 06:32 05/19/24 06:32 Labs: Laboratory Results - last 24 hr 05/18/24 08:35: Blood Type O POSITIVE, Antibody Screen NEGATIVE, Crossmatch See Detail 05/18/24 12:08: POC Glucose 156 H 05/18/24 17:02: POC Glucose 209 H 05/18/24 20:43: POC Glucose 180 H 05/19/24 06:07: POC Glucose 99 05/19/24 06:32: WBC 4.1 L, RBC 3.03 L, Hgb 8.7 L, Hct 27.8 L, MCV 91.7, MCH 28.7, MCHC 31.3 L, RDW Std Deviation 59.6 H, RDW Coeff of Fior 17.7 H, Plt Count 271, MPV 11.1, Immature Gran % (Auto) 0.500, Neut % (Auto) 70.1 H, Lymph % (Auto) 13.1 L, [place] % (Auto) 10.9 H, Eos % (Auto) 4.7, Baso % (Auto) 0.7, Absolute Neuts (auto) 2.8, Absolute Lymphs (auto) 0.53 L, Nucleated RBC % 0, Sodium 132 L, Potassium 4.8, Chloride 101, Carbon Dioxide 24.0, Anion Gap 7, BUN 63 H, Creatinine 4.87 H, Estim Creat Clear Calc 13.04, Est GFR (MDRD) Af Amer 12 L, Est GFR (MDRD) Non-Af 10 L, BUN/Creatinine Ratio 12.9, Glucose 106, Calcium 8.5 Micro: Microbiology 05/10/24 10:18 Bone - 5th Toe Gram Stain - Final 05/10/24 10:18 Bone - 5th Toe Wound Culture - Final Staphylococcus aureus Enterobacter cloacae complex 05/10/24 10:18 Bone - 5th Toe Anaerobic Culture - Final No anaerobic bacteria isolated. 05/10/24 10:18 Bone - 5th Toe Gram Stain - Final 05/10/24 10:18 Bone - 5th Toe Wound Culture - Final Staphylococcus aureus Alcaligenes faecalis ssp faeca 05/10/24 10:18 Bone - 5th Toe Anaerobic Culture - Final No anaerobic bacteria isolated. 05/14/24 20:50 Stool Stool Occult Blood (MIKE) - Final Occult Blood Positive Physical Exam Const alert, oriented x3, no apparent distress, average body habitus and healthy appearing General Appearance: cooperative, comfortable, well kempt and well developed Orientation / Consciousness: awake, oriented to person, oriented to place and oriented to time HEENT normocephalic, head/scalp atraumatic, hearing grossly normal bilaterally, nasal mucous membranes and turbinates normal, moist oral mucous membranes and oropharynx normal Eyes PERRL, EOMs intact bilaterally and conjunctivae normal Neck full ROM, no lymphadenopathy, supple, no JVD, thyroid normal and no carotid bruits General: trachea midline Lymph Lymphatic: no lymphadenopathy noted and no lymphedema noted Chest inspection of chest normal Resp normal respiratory effort, normal air movement, no retractions, no use of accessory muscles and clear to auscultation bilaterally Cardio regular rate, regular rhythm, S1 normal heart sound, S2 normal heart sound, no murmurs, no rub, no gallops and peripheral pulses 2+ throughout GI normal to inspection, nondistended, normoactive bowel sounds, soft to palpation, non-tender and non-distended Back/Spine normal ROM Extremity Extremity Narrative: both lower extremities wrapped in bandage General Extremity: no tenderness to palpation of joints or extremities Skin Skin Narrative: both lower extremities wrapped in bandage and in surgical boots Neuro oriented x3, CN's II-XII intact bilaterally, moves all extremities, no focal motor deficits, no sensory deficits noted and deep tendon reflexes 2+ bilaterally Sensorium / Orientation: awake and alert Speech: speech normal Motor Exam: strength 5/5 throughout and general weakness Psych mental status grossly normal, thought process normal, cooperative and affect normal Appearance: appropriate Assessment & Plan Assessment/Plan (1) Short Achilles tendon (acquired), left ankle: (2) Short Achilles tendon (acquired), right ankle: (3) Anemia: PLAN: Plan #Short Achilles tendon of both right and left ankle s/p corrective surgery for neuropathic ulcerations of both feet. PT/OT on board fall precautions bone cultures grew Staph aureus and Alcaligenes faecalis with wound cultures growing Enterobacter cloacae. ID on board. Patient started on p.o. Bactrim for 6-week course. #anemia Hemoglobin dropped to 5.6 and she had to be transfused. stool for focal occult blood was positive. Gastroenterology on board. Had EGD which showed multiple oozing gastric ulcers which were cauterised heparin and aspirin discontinued Hb was down to 7.2 yesterday. She was transfused with a unit of PRBCs. #ESRD: On hemodialysis on Wednesdays and Fridays. Nephrology on board. #Debility and weakness: PT OT on board. Fall precautions. #Type 2 diabetes mellitus: Complicated by neuropathy and diabetic foot ulcers as well as Charcot foot. On insulin. Checks ACHS. #Depression with anxiety: On antidepressants #Hyperlipidemia: On statin # GERD: On PPI # History of chronic back pain: Gets episodic epidural steroid injections on outpatient basis. #Hypothyroidism: on synthroid DVT prophylaxis; SCDs. No anticoagulation due to anemia. Heparin DC'd Disposition: still awaiting placement. Charges/Coding Visit Charges Inpatient E&M: 80219 Subs Hosp L2
[2024-05-19] MEDS: Acetaminophen 325 MG Tablet 650 MG PO (11:16)
[2024-05-19] MEDS: Insulin Lispro 100 UNIT/ML INSULN.PEN SC ×3 (12:07→21:22)
[2024-05-19] MEDS: Smz/Tmp Ds Tablet 0.5 TABLET PO (12:08)
[2024-05-19 14:36] VITALS: BP 129/64; PULSE 65; RESP 18; TEMP 36.6; O2SAT 97
[2024-05-19 17:26] LABS: Bedside Glucose 167 mg/dL (74-106)
[2024-05-19 21:12] VITALS: BP 133/78; PULSE 63; RESP 18; TEMP 36.4; O2SAT 98
[2024-05-19] MEDS: Carvedilol 25 MG Tablet PO (21:21)
[2024-05-19 21:22] VITALS: BP 133/78; PULSE 63
[2024-05-19] MEDS: hydrALAZINE 50 MG Tablet PO (21:22)
[2024-05-19 21:36] LABS: Bedside Glucose 166 mg/dL (74-106)
[2024-05-19] MEDS: MELATONIN 3 MG TABLET PO (23:39)
[2024-05-20] VITALS (7 sets, daily range): BP systolic 112–132; BP diastolic 47–70; PULSE 57–65; RESP 17–18; TEMP 36.3–36.6; O2SAT 96–98; BMI 29.0
[2024-05-20 00:19] LABS: Bedside Glucose 150 mg/dL (74-106)
[2024-05-20] MEDS: Acetaminophen 325 MG Tablet 650 MG PO ×2 (01:06→16:18)
[2024-05-20] MEDS: oxyCODONE 5 MG Tablet PO ×5 (01:31→20:27)
[2024-05-20] MEDS: Metoclopramide 10 MG/2 ML Vial 5 MG IV ×2 (06:10→11:40)
[2024-05-20] MEDS: Levothyroxine 25 MCG TABLET PO (06:10)
[2024-05-20] MEDS: Sucralfate 1 GM Tablet PO ×3 (06:10→16:19)
[2024-05-20 06:38] LABS: Bedside Glucose 92 mg/dL (74-106)
[2024-05-20 07:38] LABS: Absolute Lymphocyte Count 0.73 X10^3/uL (0.83-4.51); Absolute Neutrophil Count 2.7 X10^3/uL (2.0-7.7); Basophil# 0.03 X10^3/uL; Basophil% 0.7 % (0-1); Eosinophil# 0.21 X10^3/uL; Eosinophils% 5.2 % (0-5); Hematocrit 30.4 % (37-47); Hemoglobin 9.4 g/dL (12.0-15.0); Lymphocyte # 0.73 X10^3/ul (0.83-4.51); Lymphocyte % 18.1 % (19-41); Mean Corp Hgb Conc 30.9 g/dL (32-36); Mean Corpuscular Hgb 28.2 pg (27.0-32.0); Mean Corpuscular Volume 91.3 fL (81-99); Mean Platelet Vol. 10.1 fl (6.2-12.0); Monocyte# 0.35 X10^3/uL; Monocyte% 8.7 % (0-10); NRBC Flagged by Analyzer 0 % (0-5); Neutrophil % 67.1 % (47-70); Platelet Count 327 K/mm3 (150-450); RBC Distribution Width CV 17.6 % (11.6-14.6); RBC Distribution Width SD 58.4 fl (35.1-43.9); Red Blood Count 3.33 M/mm3 (4.2-5.4)
[2024-05-20 08:39] LABS: Anion Gap 10 (5-15); BUN 79 mg/dL (7-18); BUN/Creat Ratio 13.6 RATIO (10-20); Calcium,Total 8.7 mg/dL (8.5-10.1); Chloride 98 mmol/L (98-107); Creatinine, Serum 5.83 mg/dL (0.55-1.02); EST Glomerular Filtration Rate 8 mL/min (>60); Est Glom Filt Rate - Afr Amer 10 mL/min (>60); Estimated Creatinine Clearance 10.93 ml/min; Glucose 88 mg/dL (74-106); Potassium 5.2 mmol/L (3.5-5.1); Sodium Level 132 mmol/L (136-145)
--- NOTE | 2024-05-20 09:22 | PN_ITS ---
Subjective Subjective Patient seen and examined. She had no complaints. She is still awaiting placement. Review of systems otherwise negative. Objective Data Objective Data Vital Signs: Vital Signs Temp Pulse Resp BP Pulse Ox O2 Del Method O2 Flow Rate 97.5 F L 58 L 18 121/47 H 98 Room Air 2 05/20/24 05:58 05/20/24 06:09 05/20/24 05:58 05/20/24 06:09 05/20/24 05:58 05/20/24 05:58 05/15/24 22:00 Oxygen Flow Rate (L/min) 2 Oxygen Delivery Method Room Air Weight: 174 lb 6.17 oz Body Mass Index (BMI) 29.0 Intake & Output: Intake and Output for Last 24 Hours 05/18/24 05/19/24 05/20/24 23:59 23:59 23:59 Intake Total 1345 / 1345 1000 / 1000 Output Total 2940 / 2940 Balance -1595 / -1595 1000 / 1000 Lab / Micro Data 05/20/24 07:00 05/20/24 07:00 Labs: Laboratory Results - last 24 hr 05/19/24 06:32: WBC 4.1 L, RBC 3.03 L, Hgb 8.7 L, Hct 27.8 L, MCV 91.7, MCH 28.7, MCHC 31.3 L, RDW Std Deviation 59.6 H, RDW Coeff of Fior 17.7 H, Plt Count 271, MPV 11.1, Immature Gran % (Auto) 0.500, Neut % (Auto) 70.1 H, Lymph % (Auto) 13.1 L, [place] % (Auto) 10.9 H, Eos % (Auto) 4.7, Baso % (Auto) 0.7, Absolute Neuts (auto) 2.8, Absolute Lymphs (auto) 0.53 L, Nucleated RBC % 0 05/19/24 12:05: POC Glucose 150 H 05/19/24 17:03: POC Glucose 167 H 05/19/24 21:18: POC Glucose 166 H 05/20/24 06:02: POC Glucose 92 05/20/24 07:00: WBC 4.0 L, RBC 3.33 L, Hgb 9.4 L, Hct 30.4 L, MCV 91.3, MCH 28.2, MCHC 30.9 L, RDW Std Deviation 58.4 H, RDW Coeff of Fior 17.6 H, Plt Count 327, MPV 10.1, Immature Gran % (Auto) 0.200, Neut % (Auto) 67.1, Lymph % (Auto) 18.1 L, [place] % (Auto) 8.7, Eos % (Auto) 5.2 H, Baso % (Auto) 0.7, Absolute Neuts (auto) 2.7, Absolute Lymphs (auto) 0.73 L, Nucleated RBC % 0, Sodium 132 L, P otassium 5.2 H, Chloride 98, Carbon Dioxide 24.0, Anion Gap 10, BUN 79 H, C reatinine 5.83 H, Estim Creat Clear Calc 10.93, Est GFR (MDRD) Af Amer 10 L, Est GFR (MDRD) Non-Af 8 L, BUN/Creatinine Ratio 13.6, Glucose 88, Calcium 8.7 Micro: Microbiology 05/10/24 10:18 Bone - 5th Toe Gram Stain - Final 05/10/24 10:18 Bone - 5th Toe Wound Culture - Final Staphylococcus aureus Enterobacter cloacae complex 05/10/24 10:18 Bone - 5th Toe Anaerobic Culture - Final No anaerobic bacteria isolated. 05/10/24 10:18 Bone - 5th Toe Gram Stain - Final 05/10/24 10:18 Bone - 5th Toe Wound Culture - Final Staphylococcus aureus Alcaligenes faecalis ssp faeca 05/10/24 10:18 Bone - 5th Toe Anaerobic Culture - Final No anaerobic bacteria isolated. 05/14/24 20:50 Stool Stool Occult Blood (MIKE) - Final Occult Blood Positive Physical Exam Const alert, oriented x3, no apparent distress, average body habitus and healthy appearing General Appearance: cooperative, comfortable, well kempt and well developed Orientation / Consciousness: awake, oriented to person, oriented to place and oriented to time HEENT normocephalic, head/scalp atraumatic, hearing grossly normal bilaterally, nasal mucous membranes and turbinates normal, moist oral mucous membranes and oropharynx normal Eyes PERRL, EOMs intact bilaterally and conjunctivae normal Neck full ROM, no lymphadenopathy, supple, no JVD, thyroid normal and no carotid bruits General: trachea midline Lymph Lymphatic: no lymphadenopathy noted and no lymphedema noted Chest inspection of chest normal Resp normal respiratory effort, normal air movement, no retractions, no use of accessory muscles and clear to auscultation bilaterally Auscultation: Negative for rales, rhonchi or wheezes Cardio regular rate, regular rhythm, S1 normal heart sound, S2 normal heart sound, no murmurs, no rub, no gallops and peripheral pulses 2+ throughout GI normal to inspection, nondistended, normoactive bowel sounds, soft to palpation, non-tender and non-distended Back/Spine normal ROM Extremity normal to inspection and full ROM Extremity Narrative: both lower extremities wrapped in bandage General Extremity: no tenderness to palpation of joints or extremities Skin Skin Narrative: both lower extremities wrapped in bandage and in surgical boots Neuro oriented x3, CN's II-XII intact bilaterally, moves all extremities, no focal motor deficits, no sensory deficits noted and deep tendon reflexes 2+ bilaterally Sensorium / Orientation: awake and alert Speech: speech normal Motor Exam: strength 5/5 throughout and general weakness Psych mental status grossly normal, thought process normal, cooperative and affect normal Appearance: appropriate Assessment & Plan Assessment/Plan (1) Short Achilles tendon (acquired), left ankle: (2) Short Achilles tendon (acquired), right ankle: (3) Anemia: PLAN: Plan #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 * PT/OT on board * fall precautions * bone cultures grew Staph aureus and Alcaligenes faecalis with wound cultures growing Enterobacter cloacae. * ID on board. Patient on p.o. Bactrim for 6-week course. * * #anemia * Hemoglobin dropped to 5.6 and she had to be transfused. * stool for focal occult blood was positive. Gastroenterology on board. * Had EGD which showed multiple oozing gastric ulcers which were cauterised * heparin and aspirin discontinued * Hb is 9.4 today. * #ESRD: On hemodialysis on Wednesdays and Fridays. Nephrology on board. Has mild hyperkalemia with potassium being 5.2 today. Will improve with dialysis tomorrow #Debility and weakness: PT OT on board. Fall precautions. #Type 2 diabetes mellitus: Complicated by neuropathy and diabetic foot ulcers as well as Charcot foot. On insulin. Checks ACHS. #Depression with anxiety: On antidepressants #Hyperlipidemia: On statin # GERD: On PPI # History of chronic back pain: Gets episodic epidural steroid injections on outpatient basis. #Hypothyroidism: on synthroid DVT prophylaxis; SCDs. No anticoagulation due to anemia. Heparin DC'd Disposition: still awaiting placement. Charges/Coding Visit Charges Inpatient E&M: 17374 Subs Hosp L2
[2024-05-20] MEDS: Juven (unflavored) Packet 1 PACKET PO (09:47)
[2024-05-20] MEDS: Paroxetine 20 MG Tablet PO (09:47)
[2024-05-20] MEDS: buPROPion (XL) 150 MG TABLET.XL PO (09:47)
[2024-05-20] MEDS: Calcium Acetate 667 MG Capsule PO ×3 (09:47→16:19)
[2024-05-20] MEDS: Pantoprazole Sodium 40 MG Tablet PO (09:47)
[2024-05-20] MEDS: Atorvastatin Calcium 40 MG Tablet PO (09:47)
[2024-05-20] MEDS: Folic Acid 1 MG Tablet PO (09:47)
[2024-05-20] MEDS: Menthol/Lanolin/Calamine/Znox 113 GM Tube 1 APPLIC TOPICAL ×2 (09:48→20:26)
[2024-05-20] MEDS: Polyethylene Glycol 3350 17 GM PACKET PO (09:48)
[2024-05-20] MEDS: Smz/Tmp Ds Tablet 0.5 TABLET PO (11:39)
[2024-05-20] MEDS: 0.9% Saline Lock 10 ML Syringe IV (11:45)
[2024-05-20 12:00] LABS: Bedside Glucose 89 mg/dL (74-106)
[2024-05-20] MEDS: Insulin Lispro 100 UNIT/ML INSULN.PEN SC (16:22)
[2024-05-20 16:50] LABS: Bedside Glucose 155 mg/dL (74-106)
--- NOTE | 2024-05-20 16:50 | NURSING ---
Dr. Julian text back and said keep doing the same dressing change as ordered and it actually looks better than it did Tuesday.
[2024-05-20] MEDS: hydrALAZINE 50 MG Tablet PO (20:26)
[2024-05-20] MEDS: MELATONIN 3 MG TABLET PO (20:27)
[2024-05-20] MEDS: Carvedilol 25 MG Tablet PO (20:27)
[2024-05-20] MEDS: DiphenhydrAMINE 25 MG Capsule PO (20:27)
[2024-05-20 21:05] LABS: Bedside Glucose 115 mg/dL (74-106)
[2024-05-21] VITALS (14 sets, daily range): BP systolic 106–324; BP diastolic 44–69; PULSE 60–66; RESP 14–18; TEMP 36.6–36.7; O2SAT 92–96; BMI 28.5
[2024-05-21] MEDS: oxyCODONE 5 MG Tablet PO ×4 (04:27→19:44)
[2024-05-21] MEDS: Acetaminophen 325 MG Tablet 650 MG PO ×3 (04:28→18:07)
[2024-05-21] MEDS: 0.9% Saline Lock 10 ML Syringe IV ×3 (04:29→11:34)
[2024-05-21] MEDS: Metoclopramide 10 MG/2 ML Vial 5 MG IV ×2 (04:29→13:15)
[2024-05-21] MEDS: hydrALAZINE 50 MG Tablet PO ×2 (04:30→13:33)
[2024-05-21] MEDS: Levothyroxine 25 MCG TABLET PO (04:31)
[2024-05-21] MEDS: Sucralfate 1 GM Tablet PO ×3 (06:29→16:28)
[2024-05-21 06:40] LABS: Anion Gap 8 (5-15); BUN 95 mg/dL (7-18); BUN/Creat Ratio 14.8 RATIO (10-20); Calcium,Total 8.6 mg/dL (8.5-10.1); Chloride 99 mmol/L (98-107); Creatinine, Serum 6.43 mg/dL (0.55-1.02); EST Glomerular Filtration Rate 7 mL/min (>60); Est Glom Filt Rate - Afr Amer 9 mL/min (>60); Estimated Creatinine Clearance 9.84 ml/min; Glucose 89 mg/dL (74-106); Potassium 5.4 mmol/L (3.5-5.1); Sodium Level 130 mmol/L (136-145)
[2024-05-21 06:52] LABS: Absolute Lymphocyte Count 0.76 X10^3/uL (0.83-4.51); Absolute Neutrophil Count 3.7 X10^3/uL (2.0-7.7); Basophil# 0.04 X10^3/uL; Basophil% 0.8 % (0-1); Eosinophil# 0.23 X10^3/uL; Eosinophils% 4.4 % (0-5); Hematocrit 26.4 % (37-47); Hemoglobin 8.2 g/dL (12.0-15.0); Lymphocyte # 0.76 X10^3/ul (0.83-4.51); Lymphocyte % 14.4 % (19-41); Mean Corp Hgb Conc 31.1 g/dL (32-36); Mean Corpuscular Hgb 28.7 pg (27.0-32.0); Mean Corpuscular Volume 92.3 fL (81-99); Mean Platelet Vol. 9.9 fl (6.2-12.0); Monocyte# 0.49 X10^3/uL; Monocyte% 9.3 % (0-10); NRBC Flagged by Analyzer 0 % (0-5); Neutrophil # 3.74 X10^3/uL (2.7-7.7); Neutrophil % 70.7 % (47-70); Platelet Count 344 K/mm3 (150-450); RBC Distribution Width CV 17.8 % (11.6-14.6); RBC Distribution Width SD 58.7 fl (35.1-43.9); Red Blood Count 2.86 M/mm3 (4.2-5.4); White Blood Count 5.3 K/mm3 (4.4-11.0)
[2024-05-21] MEDS: PureFlow B 2K Dialysis Soln 1 BAG 6 BAG PF (07:59)
[2024-05-21] MEDS: 0.9% Normal Saline 1,000 ML IV.SOLN. 1000 ML OPERA.SITE (07:59)
[2024-05-21] MEDS: Epoetin Alfa epbx 10,000 UNIT/ML 20000 UNIT IV (10:02)
--- NOTE | 2024-05-21 10:31 | CASEMGMT ---
Social Work- SW f/u with Hayley at [facility] in regards to [facility] Precert is being started, as [facility] is now showing up. ERIN Johnson
--- NOTE | 2024-05-21 10:51 | PCM.PN.HOSP ---
Reason for Visit Reason for Visit: Diagnoses Anemia, unspecified (05/04/24) Type 2 diabetes mellitus with diabetic polyneuropathy (05/04/24) Non-pressure chronic 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 layer exposed (05/04/24) Non-pressure chronic ulcer of other part of left foot with fat layer exposed (05/04/24) Charcot's joint, right ankle and foot (05/04/24) Charcot's joint, left ankle and foot (05/04/24) Other acquired deformities of right foot (05/04/24) Other acquired deformities of left foot (05/04/24) Short Achilles tendon (acquired), right ankle (05/04/24) Short Achilles tendon (acquired), left ankle (05/04/24) Other acute osteomyelitis, right ankle and foot (05/04/24) Other acute osteomyelitis, left ankle and foot (05/04/24) End stage renal disease (05/04/24) Other malaise (05/04/24) Adult failure to thrive (05/04/24) Hyperglycemia, unspecified (05/04/24) [employer] (current) use of insulin (05/04/24) Dependence on renal dialysis (05/04/24) Subjective Subjective Saw patient at bedside this morning. Patient was having hemodialysis done when I saw her. She was mildly fatigued appearing and did report mild foot pain at surgical site but stated this was improving from previous days. She denied any new concerns today. Objective Data Objective Data Vital Signs: Vital Signs Temp Pulse Resp BP Pulse Ox O2 Del Method O2 Flow Rate 98.1 F 64 16 131/58 H 96 Room Air 2 05/21/24 04:23 05/21/24 10:30 05/21/24 10:30 05/21/24 10:30 05/21/24 10:30 05/21/24 10:30 05/15/24 22:00 Oxygen Flow Rate (L/min) 2 Oxygen Delivery Method Room Air Weight: 77.9 kg Body Mass Index (BMI) 28.5 Intake & Output: Intake and Output for Last 24 Hours 05/19/24 05/20/24 05/21/24 23:59 23:59 23:59 Intake Total 1120 / 1120 500 / 500 Balance 1120 / 1120 500 / 500 Lab / Micro Data 05/21/24 06:22 05/21/24 05:34 Labs: Laboratory Results - last 24 hr 05/20/24 11:36: POC Glucose 89 05/20/24 16:22: POC Glucose 155 H 05/20/24 20:24: POC Glucose 115 H 05/21/24 05:34: Sodium 130 L, Potassium 5.4 H, Chloride 99, Carbon Dioxide 23.0, Anion Gap 8, BUN 95 H, Creatinine 6.43 H, Estim Creat Clear Calc 9.84, Est GFR (MDRD) Af Amer 9 L, Est GFR (MDRD) Non-Af 7 L, BUN/Creatinine Ratio 14.8, Glucose 89, Calcium 8.6 05/21/24 06:22: WBC 5.3, RBC 2.86 L, Hgb 8.2 L, Hct 26.4 L, MCV 92.3, MCH 28.7, MCHC 31.1 L, RDW Std Deviation 58.7 H, RDW Coeff of Fior 17.8 H, Plt Count 344, MPV 9.9, Immature Gran % (Auto) 0.400, Neut % (Auto) 70.7 H, Lymph % (Auto) 14.4 L, [place] % (Auto) 9.3, Eos % (Auto) 4.4, Baso % (Auto) 0.8, Absolute Neuts (auto) 3.7, Absolute Lymphs (auto) 0.76 L, Nucleated RBC % 0 Micro: Microbiology 05/10/24 10:18 Bone - 5th Toe Gram Stain - Final 05/10/24 10:18 Bone - 5th Toe Wound Culture - Final Staphylococcus aureus Enterobacter cloacae complex 05/10/24 10:18 Bone - 5th Toe Anaerobic Culture - Final No anaerobic bacteria isolated. 05/10/24 10:18 Bone - 5th Toe Gram Stain - Final 05/10/24 10:18 Bone - 5th Toe Wound Culture - Final Staphylococcus aureus Alcaligenes faecalis ssp faeca 05/10/24 10:18 Bone - 5th Toe Anaerobic Culture - Final No anaerobic bacteria isolated. 05/14/24 20:50 Stool Stool Occult Blood (MIKE) - Final Occult Blood Positive Physical Exam Const alert, oriented x3 and no apparent distress Constitutional Narrative: Middle-age female, overweight, chronically ill-appearing, mildly fatigued appearing but improved, otherwise sitting up comfortably in bed, conversing normally, in no acute distress. General Appearance: cooperative and comfortable HEENT normocephalic, head/scalp atraumatic, hearing grossly normal bilaterally and nasal mucous membranes and turbinates normal Eyes PERRL, EOMs intact bilaterally and conjunctivae normal Neck full ROM Chest inspection of chest normal Resp normal respiratory effort, normal air movement, no use of accessory muscles and clear to auscultation bilaterally Cardio regular rate, regular rhythm, no murmurs and peripheral pulses 2+ throughout GI normal to inspection, nondistended, normoactive bowel sounds, soft to palpation, non-tender and non-distended Back/Spine normal ROM Extremity Extremity Narrative: Both lower extremities wrapped in bandage, stable. Neuro moves all extremities and no focal motor deficits Speech: speech normal Psych mental status grossly normal Assessment & Plan Assessment/Plan (1) Debility: (2) Acquired cavovarus deformity of left foot: (3) Acquired cavovarus deformity of right foot: (4) Anemia: PLAN: Plan Patient is a 58-year-old female who presented to [facility] ED on 05/04/2024 with chronic foot pain and worsening functional status. 1. Chronic bilateral plantar lateral midfoot wounds in setting of diabetic neuropathy and Charcot arthropathy, acute on chronic debility ? Podiatry and ID following. S/p bilateral lower extremity fifth metatarsal base excision and peroneus brevis tendon transfer on 05/10. Surgical cultures grew MRSA, alcaligenes, and enterobacter. Treating with p.o. Bactrim and planning for 6-week course total. Pain control with scheduled gabapentin, Tylenol as needed and oxycodone as needed. PT/OT/case management following. Planning for SNF on discharge, accepted at [facility], pre-CERT pending. Medically ready for discharge. 2. Acute on chronic anemia secondary to peptic ulcer disease ? GI followed. Had significant hemoglobin drop on 05/14 requiring 2 units of packed red blood cells and stool occult test was positive. EGD on 05/15 showed oozing gastric ulcers that were treated with heater probe. Hemoglobin remaining stable around 8-9 since then. Will continue PPI twice daily. Continue sucralfate with meals. 3. ESRD on HD ? Nephrology following. Continue HD MWF schedule. Continue home supplements. 4. Type 2 diabetes mellitus ? Continue treatment with sliding scale insulin as needed while inpatient. 5. Depression with anxiety ? Stable. Continue home meds. Chronic medical conditions: ? History of subacute ischemic CVA, carotid stenosis, CAD s/p stents, hypertension, hyperlipidemia: Blood pressure stable. Continue home Coreg and amlodipine. Continue home aspirin and statin. ? History of chronic back pain: Has had injection therapy in the past. Treating pain as noted above. ? History of MSSA bacteremia secondary to permacath infection ? Hypothyroidism: Continue home Synthroid. DVT prophylaxis: Heparin subcu CODE STATUS: Full code, verified Expected disposition: SNF, medically ready for discharge, pre-CERT pending Total clinical time spent by myself addressing the patient's medical issues, reviewing all the data, and collaborating with patient's care team: 35 minutes. Charges/Coding Visit Charges Inpatient E&M: 40578 Subs Hosp L2
[2024-05-21 11:21] LABS: Bedside Glucose 79 mg/dL (74-106)
[2024-05-21] MEDS: Heparin 10,000 UNITS/10 ML Vial IV (11:34)
[2024-05-21 12:04] LABS: Bedside Glucose 91 mg/dL (74-106)
--- NOTE | 2024-05-21 12:53 | PCM.PROGNOTE ---
Subjective Subjective Denies constitutional's. Pain improved today. No complaints over the weekend. Objective Data Objective Data Vital Signs: Vital Signs Temp Pulse Resp BP Pulse Ox O2 Del Method O2 Flow Rate 98.1 F 64 16 134/56 H 93 Room Air 2 05/21/24 04:23 05/21/24 11:50 05/21/24 11:50 05/21/24 11:50 05/21/24 11:50 05/21/24 11:50 05/15/24 22:00 Oxygen Flow Rate (L/min) 2 Oxygen Delivery Method Room Air Weight: 77.9 kg Body Mass Index (BMI) 28.5 Intake & Output: Intake and Output for Last 24 Hours 05/19/24 05/20/24 05/21/24 23:59 23:59 23:59 Intake Total 1120 / 1120 500 / 500 Output Total 2390 / 2390 Balance 1120 / 1120 -1890 / -1890 Lab / Micro Data 05/21/24 06:22 05/21/24 05:34 Labs: Laboratory Results - last 24 hr 05/20/24 16:22: POC Glucose 155 H 05/20/24 20:24: POC Glucose 115 H 05/21/24 05:34: Sodium 130 L, Potassium 5.4 H, Chloride 99, Carbon Dioxide 23.0, Anion Gap 8, BUN 95 H, Creatinine 6.43 H, Estim Creat Clear Calc 9.84, Est GFR (MDRD) Af Amer 9 L, Est GFR (MDRD) Non-Af 7 L, BUN/Creatinine Ratio 14.8, Glucose 89, Calcium 8.6 05/21/24 06:22: WBC 5.3, RBC 2.86 L, Hgb 8.2 L, Hct 26.4 L, MCV 92.3, MCH 28.7, MCHC 31.1 L, RDW Std Deviation 58.7 H, RDW Coeff of Fior 17.8 H, Plt Count 344, MPV 9.9, Immature Gran % (Auto) 0.400, Neut % (Auto) 70.7 H, Lymph % (Auto) 14.4 L, [place] % (Auto) 9.3, Eos % (Auto) 4.4, Baso % (Auto) 0.8, Absolute Neuts (auto) 3.7, Absolute Lymphs (auto) 0.76 L, Nucleated RBC % 0 05/21/24 06:27: POC Glucose 79 05/21/24 11:44: POC Glucose 91 Micro: Microbiology 05/10/24 10:18 Bone - 5th Toe Gram Stain - Final 05/10/24 10:18 Bone - 5th Toe Wound Culture - Final Staphylococcus aureus Enterobacter cloacae complex 05/10/24 10:18 Bone - 5th Toe Anaerobic Culture - Final No anaerobic bacteria isolated. 05/10/24 10:18 Bone - 5th Toe Gram Stain - Final 05/10/24 10:18 Bone - 5th Toe Wound Culture - Final Staphylococcus aureus Alcaligenes faecalis ssp faeca 05/10/24 10:18 Bone - 5th Toe Anaerobic Culture - Final No anaerobic bacteria isolated. 05/14/24 20:50 Stool Stool Occult Blood (MIKE) - Final Occult Blood Positive Physical Exam Narrative Neurovascular status unchanged bilateral lower extremity. Incision sites macerated but well-approximated with intact agustin. Mild sanguinous drainage noted. Plantar foot wounds demonstrate mild. Mild periwound maceration with stable granular clean bases. No equinovarus deformity noted. No sign of DVT. Const alert and oriented x3 Assessment & Plan Assessment/Plan (1) ESRD (end stage renal disease) on dialysis: PLAN: Plan Exam performed. ID on board; plan for p.o. Bactrim for 6 weeks. Due to increased maceration to incisional sites will return to daily dressing changes with a soft dressing consisting of Betadine 4 x 4's Kerlix and [place] bandage. Maceration improved today. Due to continued drainage and maceration of the right lower extremity we will plan to continue daily soft dressing consisting of Betadine paint, DSD [place] bandage. Patient should remain nonweightbearing to bilateral lower extremity will plan to follow-up with patient wound care center next week on 05/29/2024 Patient adequately anticoagulated. Incision site right lower extremity likely will dehisce and require local wound care. Will continue to follow closely.
[2024-05-21] MEDS: Folic Acid 1 MG Tablet PO (13:09)
[2024-05-21] MEDS: Calcium Acetate 667 MG Capsule PO ×2 (13:10→16:29)
[2024-05-21] MEDS: Carvedilol 25 MG Tablet PO (13:11)
[2024-05-21] MEDS: Polyethylene Glycol 3350 17 GM PACKET PO (13:12)
[2024-05-21] MEDS: Atorvastatin Calcium 40 MG Tablet PO (13:12)
[2024-05-21] MEDS: amLODIPine 5 MG Tablet PO (13:12)
[2024-05-21] MEDS: buPROPion (XL) 150 MG TABLET.XL PO (13:13)
[2024-05-21] MEDS: Paroxetine 20 MG Tablet PO (13:13)
[2024-05-21] MEDS: Pantoprazole Sodium 40 MG Tablet PO (13:13)
[2024-05-21] MEDS: Smz/Tmp Ds Tablet 0.5 TABLET PO (13:14)
--- NOTE | 2024-05-21 15:11 | CASEMGMT ---
Discharge Planning [facility]jah Wyman has obtained auth to admit. SW and physician updated. Rekha Moore DC Planning Asst.
--- NOTE | 2024-05-21 15:15 | PCM.TXEXTCAR ---
Diet Diet Order/Speech Therapy: 05/21/24 12:41 Diet: Renal - General Food consistency:: Regular Liquid Consistency:: Regular/Thin Type of Dietary Supplement:: Nepro Diet Comments: 120mL Nepro with meals Routine Orders/Code Status Routine Lab Work: CBC (Repeat in 1 week to monitor hemoglobin level) and BMP (Draw as needed to monitor electrolytes) Code Status: Full Code Wound(s) Right foot: Wound Type: Surgical Incision Dressing Change: betadine Adaptic Left foot: Wound Type: Surgical Incision Dressing Change: betadine Adaptic Generalized: Wound Type: Surgical Incision Therapies Weight Bearing: Weight bearing as tolerated Physical Therapy: Eval and Treat Occupational Therapy: Eval and Treat Problem/Diagnosis (1) Debility: Status: Acute Code(s): R53.81 - Other malaise (2) Acquired cavovarus deformity of left foot: Status: Acute Code(s): M21.6X2 - Other acquired deformities of left foot (3) Acquired cavovarus deformity of right foot: Status: Acute Code(s): M21.6X1 - Other acquired deformities of right foot (4) Anemia: Status: Acute Code(s): D64.9 - Anemia, unspecified Plan Patient is a 58-year-old female who presented to [facility] ED on 05/04/2024 with chronic foot pain and worsening functional status. Prolonged hospital course as noted below. Patient discharged to SNF at [facility] in stable condition on 05/21. 1. Chronic bilateral plantar lateral midfoot wounds in setting of diabetic neuropathy and Charcot arthropathy, acute on chronic debility ? Podiatry and ID followed. S/p bilateral lower extremity fifth metatarsal base excision and peroneus brevis tendon transfer on 05/10. Surgical cultures grew MRSA, alcaligenes, and enterobacter. Treating with p.o. Bactrim and planning for 6-week course total. Pain control with scheduled gabapentin, Tylenol as needed and oxycodone as needed. PT/OT/case management followed. Stable for discharge to SNF on 05/21. 2. Acute on chronic anemia secondary to peptic ulcer disease ? GI followed. Had significant hemoglobin drop on 05/14 requiring 2 units of packed red blood cells and stool occult test was positive. EGD on 05/15 showed oozing gastric ulcers that were treated with heater probe. Hemoglobin remaining stable around 8-9 since then. Will continue PPI twice daily. Continue sucralfate with meals. 3. ESRD on HD ? Nephrology followed. Continue HD MWF schedule. Continue home supplements. 4. Type 2 diabetes mellitus ? Treated with sliding scale insulin as needed while inpatient, will continue this on discharge. 5. Depression with anxiety ? Stable. Continue home meds. Chronic medical conditions: ? History of subacute ischemic CVA, carotid stenosis, CAD s/p stents, hypertension, hyperlipidemia: Blood pressure stable. Continue home Coreg and amlodipine. Continue home aspirin and statin. ? History of chronic back pain: Has had injection therapy in the past. Treating pain as noted above. ? History of MSSA bacteremia secondary to permacath infection ? Hypothyroidism: Continue home Synthroid. Total clinical time spent by myself addressing the patient's medical issues, reviewing all the data, and collaborating with patient's care team: 35 minutes. Allergies/Procedures Done in Hospital Allergies oxycodone (From OxyContin) Allergy (Verified 05/05/24 04:11) sob Penicillins Allergy (Verified 04/25/24 18:14) swelling in throat vancomycin Allergy (Verified 04/25/24 18:14) Itching metronidazole Adverse Reaction (Verified 04/25/24 18:14) Nausea Procedures: Colonoscopy, EGD, EKG and - (bilateral lower extremity fifth metatarsal base excision and peroneus brevis tendon transfer, ankle-brachial index, foot x-ray) Type of Care/Length of Stay Estimated LOS: Convalescent Care Less Than 30 days Type of Care Needed: Skilled Rehab Potential: Fair Prognosis: Fair Additional Orders/Day of Discharge H&P will serve as current which was dated: 05/04/24 Day of Discharge: 05/21/24 Dietary and Speech Recommendations Dietitian Recommendations/Changes: Will change diet to Renal General; monitor need to restrict carbohydrates if blood glucose rises. Will continue 120mL PO Nepro 3 times per day with meals and Ted BID w/ medpass as tolerated. Liberalize diet as needed if PO regresses at meals. Discharge Plan Admission Admit Date/Time: 05/04/24 14:57 Primary Reason for Your Visit: chronic foot pain with worsening debility Attending Provider: Neal Walton Primary Care Provider: Raúl Eric Consulting Providers: Neal Walton; Blas Vu; Mónica Mcallister; Angel Joel; Gustavo Julian; Raúl Perez; Rodney Yates; Kike Tello; Rachel Okeefe Discharge Orders/Prescriptions Prescriptions: New acetaminophen 325 mg Tablet 650 mg PO Q6H PRN PRN (Reason: Pain 1-10 Or Fever>100.7) Qty: 0 0RF diphenhydramine HCl [Banophen] 25 mg Capsule 25 mg PO Q6H PRN PRN (Reason: Itching) Qty: 0 0RF melatonin 3 mg Tablet 3 mg PO QHS PRN PRN (Reason: Insomnia) Qty: 0 0RF lorazepam 0.5 mg Tablet 0.5 mg PO MoWeFr@1000 Qty: 0 0RF hydralazine 50 mg Tablet 50 mg PO TID Qty: 0 0RF menthol-zinc oxide [Calmoseptine] 0.44-20.6 % Ointment 1 applic topical BID Qty: 0 0RF Protocol: *Topical Application Instructions APPLICATION INSTRUCTIONS: BUTTOCKS Ted (with collagen) 7-7-1.5 gram Powder In Packet 1 packet PO BIDCM Qty: 0 0RF sucralfate 1 gram Tablet 1 g PO TID@0700,1100,1600 Qty: 0 0RF sulfamethoxazole-trimethoprim 800-160 mg Tablet 0.5 tab PO 1200 Qty: 0 0RF oxycodone 5 mg Tablet 5 mg PO Q6H PRN PRN (Reason: Pain Score 4-10) Qty: 0 0RF Continued paroxetine HCl 20 mg tablet 20 mg PO DAILY Patient Comments: TAKE 1 TABLET BY MOUTH EVERY DAY IN THE EVENING bupropion HCl 150 mg tablet extended release 24 hr 150 mg PO DAILY Patient Comments: TAKE 1 TABLET BY MOUTH EVERY DAY sennosides-docusate sodium [Stool Softener-Stimulant Laxat] 8.6-50 mg Tablet 2 tab PO BID PRN PRN (Reason: Constipation) Qty: 0 0RF ascorbic acid (vitamin C) [Vitamin C] 500 mg Tablet 500 mg PO BID pantoprazole 40 mg tablet,delayed release (DR/EC) 40 mg PO BIDCM ferrous sulfate 325 mg (65 mg iron) tablet 325 mg PO .three times a week Patient Comments: takes three times a week, on Tuesday, and Tuesday gabapentin 100 mg capsule 100 mg PO .COMPLEX PRN (Reason: pain) Rx Instructions: 100 mg orally 3 times a week Tuesday, Tuesday and Tuesday atorvastatin 40 mg tablet 40 mg PO DAILY carvedilol 25 mg tablet 25 mg PO BID insulin lispro [Humalog KwikPen Insulin] 100 unit/mL Insulin Pen See Protocol subcut TIDAC Qty: 0 0RF Protocol: 3. Sliding Scale Insulin Med Dosing Condition: 150-189 mg/dl = 1 unit Condition: 190-229 mg/dl = 2 units Condition: 230-269 mg/dl = 3 units Condition: 270-309 mg/dl = 4 units Condition: 310-349 mg/dl = 5 units Condition: 350-399 mg/dl = 6 units Condition: 400-449 mg/dl = 7 units Condition: Greater than 449 call physician Protocol Text: Suggested for: - Patients on Total Daily Insulin Dose of 37-55 units - Obese, infected, or steroid patients MEDIUM DOSING ALGORITHIM calcium acetate(phosphat bind) 667 mg capsule 676 mg PO TID Patient Comments: TAKE 1 CAPSULE BY MOUTH THREE TIMES A DAY WITH FOOD folic acid 800 mcg tablet 0.8 mg PO DAILY Patient Comments: TAKE 1 TABLET BY MOUTH EVERY DAY levothyroxine 25 mcg tablet 25 mcg PO DAILY Patient Comments: TAKE 1 TABLET BY MOUTH EVERY DAY BEFORE BREAKFAST amlodipine 5 mg tablet 5 mg PO DAILY antacid extra assorted fruit tablets 750 mg PO .every 4 hours PRN (Reason: tums) calcitriol 0.5 mcg capsule 0.5 mcg PO .COMPLEX Rx Instructions: 0.5 mcg orally three times a week; nitroglycerin [Nitrostat] 0.4 mg tablet, sublingual 0.4 mg sublingual Q5M Rx Instructions: do not exceed 3 doses per episode aspirin 81 mg capsule 81 mg PO DAILY Qty: 30 1RF Discontinued clopidogrel 75 mg tablet 75 mg PO DAILY insulin glargine-yfgn 100 unit/mL (3 mL) insulin pen 5 unit subcut QHS Qty: 15 0RF Rx Instructions: Hold if glucose less than 130 mg/dl cyclobenzaprine 5 mg tablet 5 mg PO TID PRN (Reason: muscle spasm) Qty: 21 0RF buprenorphine 5 mcg/hour patch weekly 1 patch topical QWEEK clindamycin HCl 150 mg capsule 450 mg PO TID 10 Days Qty: 90 0RF insulin aspart U-100 100 unit/mL (3 mL) insulin pen SUBCUT Patient Comments: PLEASE SEE ATTACHED FOR DETAILED DIRECTIONS olanzapine 5 mg tablet 5 mg PO QHS Patient Comments: TAKE 1 TABLET BY MOUTH EVERYDAY AT BEDTIME hydralazine 25 mg tablet 25 mg PO TID insulin glargine [Lantus Solostar U-100 Insulin] 100 unit/mL (3 mL) insulin pen 20 unit subcut DAILY lidocaine-silicone, adhesive topical Patient Comments: 1 patch daily melatonin 5 mg capsule 5 mg PO .bedtime insulin aspart U-100 [Novolog FlexPen U-100 Insulin] 6 unit subcut TID Patient Comments: give with meals ondansetron 4 mg tablet,disintegrating 4 mg PO DAILY PRN (Reason: nausea and vomiting) pramipexole dihydrochloride 1.5 mg PO BID isosorbide dinitrate 10 mg Tablet 20 mg PO TID acetaminophen 325 mg capsule 325 mg PO Q4H PRN (Reason: fever or pain) cloNIDine See Rx Instructions .ROUTE .COMPLEX Rx Instructions: 0.1mg every 4 hours as needed diphenhydramine 25 mg IV Rx Instructions: every 30 minutes as needed. loperamide [Anti-Diarrheal (loperamide)] 2 mg capsule 2 mg PO Q4H PRN (Reason: loose stool) Rx Instructions: administer after each loose stool until symptoms controlled; do not exceed 8 mg per 24 hrs Mircera See Rx Instructions .ROUTE .COMPLEX Rx Instructions: intravenous every 2 weeks promethazine 25 mg tablet 25 mg PO Q4H PRN (Reason: nausea and vomiting) Venofer Rx Instructions: 50 mg one time a week. cefepime in dextrose 5 % 1 gram/50 mL piggyback 1 g IV .as directed Rx Instructions: Dose with dialysis sessions. 1gm on Tue, 2gm on , 1gm on , 2gm on Tuesday. Stop date 01/30/24. Dx: MSSA endocarditis. Weekly bmp and cbc. Fax to [phone]. clindamycin HCl 150 mg capsule 450 mg PO TID 7 Days Qty: 63 0RF Referrals / Follow Up: Raúl Eric MD [Primary Care Provider] - Disposition Disposition (needs filled in before D/C Order can be placed): [facility]
--- NOTE | 2024-05-21 15:28 | DS.PCM_ITS ---
Providers Date of Admission: 05/04/24 Date of Discharge: 05/21/24 Primary Care Physician: Dr. Raúl Eric MD Consultations 05/04/24 08:54 Consult: Nephrology Routine Consulting Provider: Angel Joel Reason for Consult: dialysis EMERGENT Consult: No Notified: Yes Date Notified: 05/04/24 Time Notified: 08:54 Method of Notification: Text 05/05/24 11:41 Consult: Podiatry Routine Consulting Provider: Gustavo Julian Reason for Consult: WOUND MANAGEMENT EMERGENT Consult: No MD Notified: Yes Date Notified: 05/05/24 Time Notified: 11:41 Method of Notification: Verbal 05/05/24 13:38 Consult: General Surgery Routine Consulting Provider: Mónica Mcallister Reason for Consult: Permacath not working, may need exchange on Tuesday EMERGENT Consult: No Notified: Yes Date Notified: 05/05/24 Time Notified: 13:38 Method of Notification: Text 05/09/24 12:13 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: Reason for Consult:: bilateral foot wounds 05/14/24 08:47 Consult: Gastroenterology Routine Consulting Provider: [facility] Reason for Consult: anemia EMERGENT Consult: No MD Notified: Yes Date Notified: 05/14/24 Time Notified: 08:47 Method of Notification: Text 05/16/24 09:56 Consult: Infectious Disease Routine Consulting Provider: Kike Tello Reason for Consult: positive bone cultures EMERGENT Consult: No MD Notified: Yes Date Notified: 05/16/24 Time Notified: 10:10 Method of Notification: Text Reason For Visit: DEBILITY, ESRD ON HD Diagnosis Discharge Diagnosis (1) Debility: Status: Acute Code(s): R53.81 - Other malaise (2) Acquired cavovarus deformity of left foot: Status: Acute Code(s): M21.6X2 - Other acquired deformities of left foot (3) Acquired cavovarus deformity of right foot: Status: Acute Code(s): M21.6X1 - Other acquired deformities of right foot (4) Anemia: Status: Acute Code(s): D64.9 - Anemia, unspecified Medications at Discharge Home Medications paroxetine HCl 20 mg tablet 20 mg PO DAILY DEPRESSION 07/07/21 bupropion HCl 150 mg 24 hr tablet, extended release 150 mg PO DAILY mood 02/04/22 sennosides 8.6 mg-docusate sodium 50 mg tablet (Stool Softener-Stimulant Laxative) 2 tab PO BID PRN PRN Constipation #0 tabs 04/24/22 ascorbic acid (vitamin C) 500 mg tablet (Vitamin C) 500 mg PO BID supplement 05/05/22 ferrous sulfate 325 mg (65 mg iron) tablet 325 mg PO .three times a week anemia 07/19/22 pantoprazole 40 mg tablet,delayed release 40 mg PO BIDCM GERD 07/19/22 gabapentin 100 mg capsule 100 mg PO .COMPLEX PRN pain 11/26/23 amlodipine 5 mg tablet 5 mg PO DAILY bp 12/16/23 antacid extra assorted fruit tablets 750 mg PO .every 4 hours PRN tums 12/16/23 calcitriol 0.5 mcg capsule 0.5 mcg PO .COMPLEX on dialysis 12/16/23 calcium acetate(phosphat bind) 667 mg capsule 676 mg PO TID is on dialysis 12/16/23 folic acid 800 mcg tablet 0.8 mg PO DAILY supplement 12/16/23 levothyroxine 25 mcg tablet 25 mcg PO DAILY thyroid 12/16/23 nitroglycerin 0.4 mg sublingual tablet (Nitrostat) 0.4 mg sublingual Q5M chest pain 12/16/23 aspirin 81 mg capsule 81 mg PO DAILY #30 caps 12/26/23 atorvastatin 40 mg tablet 40 mg PO DAILY 03/18/24 carvedilol 25 mg tablet 25 mg PO BID 03/18/24 acetaminophen 325 mg tablet 650 mg (2 x 325 mg) PO Q6H PRN PRN Pain 1-10 Or Fever>100.7 #0 tabs 05/21/24 arginine 7 gram-glutam 7 gram-CaHMB 1.5 [id number]-min oral pwd pkt (Ted (with collagen)) 1 packet PO BIDCM #0 ea 05/21/24 diphenhydramine HCl 25 mg capsule (Banophen) 25 mg PO Q6H PRN PRN Itching #0 caps 05/21/24 hydralazine 50 mg tablet 50 mg PO TID #0 tabs 05/21/24 insulin lispro 100 unit/mL subcutaneous pen (Humalog KwikPen (U-100) Insulin) See Protocol subcut TIDAC #0 mL 05/21/24 lorazepam 0.5 mg tablet 0.5 mg PO MoWeFr@1000 #0 tabs 05/21/24 melatonin 3 mg tablet 3 mg PO QHS PRN PRN Insomnia #0 tabs 05/21/24 menthol 0.44 %-zinc oxide 20.6 % topical ointment (Calmoseptine) 1 applic topical BID #0 grams 05/21/24 oxycodone 5 mg tablet 5 mg PO Q6H PRN PRN Pain Score 4-10 #0 tabs 05/21/24 sucralfate 1 gram tablet 1 g PO TID@0700,1100,1600 #0 tabs 05/21/24 sulfamethoxazole 800 mg-trimethoprim 160 mg tablet 0.5 tab PO 1200 #0 tabs 05/21/24 Hospital Course Operations - (bilateral lower extremity fifth metatarsal base excision and peroneus brevis tendon transfer) Procedures EGD, EKG and - (Ankle-brachial index, foot x-ray) Summary of Care Provided Minutes Spent on Discharge: 35 Hospital Course: Patient is a 58-year-old female who presented to [facility] ED on 05/04/2024 with chronic foot pain and worsening functional status. Prolonged hospital course as noted below. Patient discharged to SNF at [facility] in stable condition on 05/21. 1. Chronic bilateral plantar lateral midfoot wounds in setting of diabetic neuropathy and Charcot arthropathy, acute on chronic debility ? Podiatry and ID followed. S/p bilateral lower extremity fifth metatarsal base excision and peroneus brevis tendon transfer on 05/10. Surgical cultures grew MRSA, alcaligenes, and enterobacter. Treating with p.o. Bactrim and planning for 6-week course total. Pain control with scheduled gabapentin, Tylenol as needed and oxycodone as needed. PT/OT/case management followed. Stable for discharge to SNF on 05/21. 2. Acute on chronic anemia secondary to peptic ulcer disease ? GI followed. Had significant hemoglobin drop on 05/14 requiring 2 units of packed red blood cells and stool occult test was positive. EGD on 05/15 showed oozing gastric ulcers that were treated with heater probe. Hemoglobin remaining stable around 8-9 since then. Will continue PPI twice daily. Continue sucralfate with meals. 3. ESRD on HD ? Nephrology followed. Continue HD MWF schedule. Continue home supplements. 4. Type 2 diabetes mellitus ? Treated with sliding scale insulin as needed while inpatient, will continue this on discharge. 5. Depression with anxiety ? Stable. Continue home meds. Chronic medical conditions: ? History of subacute ischemic CVA, carotid stenosis, CAD s/p stents, hypertension, hyperlipidemia: Blood pressure stable. Continue home Coreg and amlodipine. Continue home aspirin and statin. ? History of chronic back pain: Has had injection therapy in the past. Treating pain as noted above. ? History of MSSA bacteremia secondary to permacath infection ? Hypothyroidism: Continue home Synthroid. Total clinical time spent by myself addressing the patient's medical issues, reviewing all the data, and collaborating with patient's care team: 35 minutes. Physical Exam Const alert, oriented x3 and no apparent distress Constitutional Narrative: Middle-age female, overweight, chronically ill-appearing, mildly fatigued appearing but improved, otherwise sitting up comfortably in bed, conversing normally, in no acute distress. General Appearance: cooperative and comfortable HEENT normocephalic, head/scalp atraumatic, hearing grossly normal bilaterally and nasal mucous membranes and turbinates normal Eyes PERRL, EOMs intact bilaterally and conjunctivae normal Neck full ROM Chest inspection of chest normal Resp normal respiratory effort, normal air movement, no use of accessory muscles and clear to auscultation bilaterally Cardio regular rate, regular rhythm, no murmurs and peripheral pulses 2+ throughout GI normal to inspection, nondistended, normoactive bowel sounds, soft to palpation, non-tender and non-distended Back/Spine normal ROM Extremity Extremity Narrative: Both lower extremities wrapped in bandage, stable. Neuro moves all extremities and no focal motor deficits Speech: speech normal Psych mental status grossly normal Weight / BMI Weight Weight: 77.9 kg Body Mass Index (BMI) 28.5 ABG / Lab / Microbiology Data 05/21/24 06:22 05/21/24 05:34 Laboratory: Laboratory Results - last 24 hr 05/20/24 16:22: POC Glucose 155 H 05/20/24 20:24: POC Glucose 115 H 05/21/24 05:34: Sodium 130 L, Potassium 5.4 H, Chloride 99, Carbon Dioxide 23.0, Anion Gap 8, BUN 95 H, Creatinine 6.43 H, Estim Creat Clear Calc 9.84, Est GFR (MDRD) Af Amer 9 L, Est GFR (MDRD) Non-Af 7 L, BUN/Creatinine Ratio 14.8, Glucose 89, Calcium 8.6 05/21/24 06:22: WBC 5.3, RBC 2.86 L, Hgb 8.2 L, Hct 26.4 L, MCV 92.3, MCH 28.7, MCHC 31.1 L, RDW Std Deviation 58.7 H, RDW Coeff of Fior 17.8 H, Plt Count 344, MPV 9.9, Immature Gran % (Auto) 0.400, Neut % (Auto) 70.7 H, Lymph % (Auto) 14.4 L, [place] % (Auto) 9.3, Eos % (Auto) 4.4, Baso % (Auto) 0.8, Absolute Neuts (auto) 3.7, Absolute Lymphs (auto) 0.76 L, Nucleated RBC % 0 05/21/24 06:27: POC Glucose 79 05/21/24 11:44: POC Glucose 91 Microbiology: Microbiology 05/10/24 10:18 Bone - 5th Toe Gram Stain - Final 05/10/24 10:18 Bone - 5th Toe Wound Culture - Final Staphylococcus aureus Enterobacter cloacae complex 05/10/24 10:18 Bone - 5th Toe Anaerobic Culture - Final No anaerobic bacteria isolated. 05/10/24 10:18 Bone - 5th Toe Gram Stain - Final 05/10/24 10:18 Bone - 5th Toe Wound Culture - Final Staphylococcus aureus Alcaligenes faecalis ssp faeca 05/10/24 10:18 Bone - 5th Toe Anaerobic Culture - Final No anaerobic bacteria isolated. 05/14/24 20:50 Stool Stool Occult Blood (MIKE) - Final Occult Blood Positive Meaningful Use Info Meaningful Use Meaningful Use Diagnoses (Choose all that apply): None applicable Ischemic Stroke Statin Dosing Therapy Reference: STATIN DOSE THERAPY REFERENCE: * Patients > 75 years receive moderate or high dose statin therapy. * Patients 75 years or YOUNGER should receive HIGH intensity statin dose unless contraindicated. You will be required to document reason for non-treatment if statin daily dose does not meet guidelines. HIGH DOSE STATIN THERAPY DAILY Atorvastatin > than or = to 40 mg Rosuvastatin > than or = to 20 mg Amlodipine + Atorvastatin > than or = to 2.5/40 mg Ezetimibe + Simvastatin 80 mg Simvastatin 80mg Discharge Plan Admission Admit Date/Time: 05/04/24 14:57 Primary Reason for Your Visit: chronic foot pain with worsening debility Attending Provider: Neal Walton Primary Care Provider: Raúl Eric Consulting Providers: Neal Walton; Blas Vu; Mónica Mcallister; Angel Joel; Gustavo Julian; Raúl Perez; Rodney Yates; Kike Tlelo; Rachel Okeefe Discharge Orders/Prescriptions Prescriptions: New acetaminophen 325 mg Tablet 650 mg PO Q6H PRN PRN (Reason: Pain 1-10 Or Fever>100.7) Qty: 0 0RF diphenhydramine HCl [Banophen] 25 mg Capsule 25 mg PO Q6H PRN PRN (Reason: Itching) Qty: 0 0RF melatonin 3 mg Tablet 3 mg PO QHS PRN PRN (Reason: Insomnia) Qty: 0 0RF lorazepam 0.5 mg Tablet 0.5 mg PO MoWeFr@1000 Qty: 0 0RF hydralazine 50 mg Tablet 50 mg PO TID Qty: 0 0RF menthol-zinc oxide [Calmoseptine] 0.44-20.6 % Ointment 1 applic topical BID Qty: 0 0RF Protocol: *Topical Application Instructions APPLICATION INSTRUCTIONS: BUTTOCKS Ted (with collagen) 7-7-1.5 gram Powder In Packet 1 packet PO BIDCM Qty: 0 0RF sucralfate 1 gram Tablet 1 g PO TID@0700,1100,1600 Qty: 0 0RF sulfamethoxazole-trimethoprim 800-160 mg Tablet 0.5 tab PO 1200 Qty: 0 0RF oxycodone 5 mg Tablet 5 mg PO Q6H PRN PRN (Reason: Pain Score 4-10) Qty: 0 0RF Continued paroxetine HCl 20 mg tablet 20 mg PO DAILY Patient Comments: TAKE 1 TABLET BY MOUTH EVERY DAY IN THE EVENING bupropion HCl 150 mg tablet extended release 24 hr 150 mg PO DAILY Patient Comments: TAKE 1 TABLET BY MOUTH EVERY DAY sennosides-docusate sodium [Stool Softener-Stimulant Laxat] 8.6-50 mg Tablet 2 tab PO BID PRN PRN (Reason: Constipation) Qty: 0 0RF ascorbic acid (vitamin C) [Vitamin C] 500 mg Tablet 500 mg PO BID pantoprazole 40 mg tablet,delayed release (DR/EC) 40 mg PO BIDCM ferrous sulfate 325 mg (65 mg iron) tablet 325 mg PO .three times a week Patient Comments: takes three times a week, on Tuesday, and Tuesday gabapentin 100 mg capsule 100 mg PO .COMPLEX PRN (Reason: pain) Rx Instructions: 100 mg orally 3 times a week Tuesday, Tuesday and Tuesday atorvastatin 40 mg tablet 40 mg PO DAILY carvedilol 25 mg tablet 25 mg PO BID insulin lispro [Humalog KwikPen Insulin] 100 unit/mL Insulin Pen See Protocol subcut TIDAC Qty: 0 0RF Protocol: 3. Sliding Scale Insulin Med Dosing Condition: 150-189 mg/dl = 1 unit Condition: 190-229 mg/dl = 2 units Condition: 230-269 mg/dl = 3 units Condition: 270-309 mg/dl = 4 units Condition: 310-349 mg/dl = 5 units Condition: 350-399 mg/dl = 6 units Condition: 400-449 mg/dl = 7 units Condition: Greater than 449 call physician Protocol Text: Suggested for: - Patients on Total Daily Insulin Dose of 37-55 units - Obese, infected, or steroid patients MEDIUM DOSING ALGORITHIM calcium acetate(phosphat bind) 667 mg capsule 676 mg PO TID Patient Comments: TAKE 1 CAPSULE BY MOUTH THREE TIMES A DAY WITH FOOD folic acid 800 mcg tablet 0.8 mg PO DAILY Patient Comments: TAKE 1 TABLET BY MOUTH EVERY DAY levothyroxine 25 mcg tablet 25 mcg PO DAILY Patient Comments: TAKE 1 TABLET BY MOUTH EVERY DAY BEFORE BREAKFAST amlodipine 5 mg tablet 5 mg PO DAILY antacid extra assorted fruit tablets 750 mg PO .every 4 hours PRN (Reason: tums) calcitriol 0.5 mcg capsule 0.5 mcg PO .COMPLEX Rx Instructions: 0.5 mcg orally three times a week; nitroglycerin [Nitrostat] 0.4 mg tablet, sublingual 0.4 mg sublingual Q5M Rx Instructions: do not exceed 3 doses per episode aspirin 81 mg capsule 81 mg PO DAILY Qty: 30 1RF Discontinued clopidogrel 75 mg tablet 75 mg PO DAILY insulin glargine-yfgn 100 unit/mL (3 mL) insulin pen 5 unit subcut QHS Qty: 15 0RF Rx Instructions: Hold if glucose less than 130 mg/dl cyclobenzaprine 5 mg tablet 5 mg PO TID PRN (Reason: muscle spasm) Qty: 21 0RF buprenorphine 5 mcg/hour patch weekly 1 patch topical QWEEK clindamycin HCl 150 mg capsule 450 mg PO TID 10 Days Qty: 90 0RF insulin aspart U-100 100 unit/mL (3 mL) insulin pen SUBCUT Patient Comments: PLEASE SEE ATTACHED FOR DETAILED DIRECTIONS olanzapine 5 mg tablet 5 mg PO QHS Patient Comments: TAKE 1 TABLET BY MOUTH EVERYDAY AT BEDTIME hydralazine 25 mg tablet 25 mg PO TID insulin glargine [Lantus Solostar U-100 Insulin] 100 unit/mL (3 mL) insulin pen 20 unit subcut DAILY lidocaine-silicone, adhesive topical Patient Comments: 1 patch daily melatonin 5 mg capsule 5 mg PO .bedtime insulin aspart U-100 [Novolog FlexPen U-100 Insulin] 6 unit subcut TID Patient Comments: give with meals ondansetron 4 mg tablet,disintegrating 4 mg PO DAILY PRN (Reason: nausea and vomiting) pramipexole dihydrochloride 1.5 mg PO BID isosorbide dinitrate 10 mg Tablet 20 mg PO TID acetaminophen 325 mg capsule 325 mg PO Q4H PRN (Reason: fever or pain) cloNIDine See Rx Instructions .ROUTE .COMPLEX Rx Instructions: 0.1mg every 4 hours as needed diphenhydramine 25 mg IV Rx Instructions: every 30 minutes as needed. loperamide [Anti-Diarrheal (loperamide)] 2 mg capsule 2 mg PO Q4H PRN (Reason: loose stool) Rx Instructions: administer after each loose stool until symptoms controlled; do not exceed 8 mg per 24 hrs Mircera See Rx Instructions .ROUTE .COMPLEX Rx Instructions: intravenous every 2 weeks promethazine 25 mg tablet 25 mg PO Q4H PRN (Reason: nausea and vomiting) Venofer Rx Instructions: 50 mg one time a week. cefepime in dextrose 5 % 1 gram/50 mL piggyback 1 g IV .as directed Rx Instructions: Dose with dialysis sessions. 1gm on Tue, 2gm on , 1gm on , 2gm on Tuesday. Stop date 01/30/24. Dx: MSSA endocarditis. Weekly bmp and cbc. Fax to [phone]. clindamycin HCl 150 mg capsule 450 mg PO TID 7 Days Qty: 63 0RF Referrals / Follow Up: Raúl Eric MD [Primary Care Provider] - Disposition Disposition (needs filled in before D/C Order can be placed): [facility] Facility Charges/Coding Visit Charges Inpatient E&M: 78063 Disch Hosp >30min
--- NOTE | 2024-05-21 15:29 | PN.RENAL_ITS ---
Subjective Subjective Follow-up on ESRD. She just had a hemodialysis, 2.4 L have been removed, she tolerated dialysis well without hypotension or cramps. Access is patent, no issues. Has received Retacrit Objective Data Objective Data Vital Signs: Vital Signs Temp Pulse Resp BP Pulse Ox O2 Del Method O2 Flow Rate 98.1 F 64 16 134/56 H 93 Room Air 2 05/21/24 04:23 05/21/24 13:33 05/21/24 11:50 05/21/24 11:50 05/21/24 11:50 05/21/24 11:50 05/15/24 22:00 Oxygen Flow Rate (L/min) 2 Oxygen Delivery Method Room Air Weight: 77.9 kg Body Mass Index (BMI) 28.5 Intake & Output: Intake and Output for Last 24 Hours 05/19/24 05/20/24 05/21/24 23:59 23:59 23:59 Intake Total 1120 / 1120 500 / 500 Output Total 2390 / 2390 Balance 1120 / 1120 -1890 / -1890 Lab / Micro Data Attestation: I reviewed the patient's lab results. 05/21/24 06:22 05/21/24 05:34 Labs: Laboratory Results - last 24 hr 05/20/24 16:22: POC Glucose 155 H 05/20/24 20:24: POC Glucose 115 H 05/21/24 05:34: Sodium 130 L, Potassium 5.4 H, Chloride 99, Carbon Dioxide 23.0, Anion Gap 8, BUN 95 H, Creatinine 6.43 H, Estim Creat Clear Calc 9.84, Est GFR (MDRD) Af Amer 9 L, Est GFR (MDRD) Non-Af 7 L, BUN/Creatinine Ratio 14.8, Glucose 89, Calcium 8.6 05/21/24 06:22: WBC 5.3, RBC 2.86 L, Hgb 8.2 L, Hct 26.4 L, MCV 92.3, MCH 28.7, MCHC 31.1 L, RDW Std Deviation 58.7 H, RDW Coeff of Fior 17.8 H, Plt Count 344, MPV 9.9, Immature Gran % (Auto) 0.400, Neut % (Auto) 70.7 H, Lymph % (Auto) 14.4 L, [place] % (Auto) 9.3, Eos % (Auto) 4.4, Baso % (Auto) 0.8, Absolute Neuts (auto) 3.7, Absolute Lymphs (auto) 0.76 L, Nucleated RBC % 0 05/21/24 06:27: POC Glucose 79 05/21/24 11:44: POC Glucose 91 Micro: Microbiology 05/10/24 10:18 Bone - 5th Toe Gram Stain - Final 05/10/24 10:18 Bone - 5th Toe Wound Culture - Final Staphylococcus aureus Enterobacter cloacae complex 05/10/24 10:18 Bone - 5th Toe Anaerobic Culture - Final No anaerobic bacteria isolated. 05/10/24 10:18 Bone - 5th Toe Gram Stain - Final 05/10/24 10:18 Bone - 5th Toe Wound Culture - Final Staphylococcus aureus Alcaligenes faecalis ssp faeca 05/10/24 10:18 Bone - 5th Toe Anaerobic Culture - Final No anaerobic bacteria isolated. 05/14/24 20:50 Stool Stool Occult Blood (MIKE) - Final Occult Blood Positive Physical Exam Const alert, oriented x3 and no apparent distress General Appearance: well developed Orientation / Consciousness: oriented to person, oriented to place and oriented to time HEENT normocephalic Head and Scalp: atraumatic Resp no use of accessory muscles and clear to auscultation bilaterally Cardio regular rate and no rub GI non-tender Auscultation: normoactive bowel sounds Skin no rashes or lesions noted Neuro Sensorium / Orientation: awake and alert Psych cooperative Assessment & Plan Assessment/Plan (1) ESRD (end stage renal disease) on dialysis: PLAN: Status post hemodialysis earlier this morning. Tolerated well, successful ultrafiltration, Access is patent. For anemia has received Retacrit injection. Next dialysis session will be Tuesday
--- NOTE | 2024-05-21 15:53 | CASEMGMT ---
Social Work Precert has been obtained.? Physician updated and pt is ready for discharge today.? 7000 convalescent form completed in [facility].?Transport forms completed. SW met with pt and they are agreeable to discharge plan as stated above.?DCA and bedside nurse notified of discharge. Disposition: [facility], skilled level of care under convalescent stay. ERIN Johnson
[2024-05-21] MEDS: Insulin Lispro 100 UNIT/ML INSULN.PEN SC (16:28)
[2024-05-21] MEDS: Calcitriol 0.25 MCG Capsule 0.5 MCG PO (16:29)
--- NOTE | 2024-05-21 16:34 | CASEMGMT ---
Discharge Planning Discharge orders, signed med list, and transport time sent to [facility] via [facility]. Physicians will transport patient by cot at 7p. Nursing, SW, and patient updated. Call placed to patients daughter (Trisha) but vm was not set up. Pt will try to reach out to her. Rekha Moore DC Planning Asst.
[2024-05-21 16:43] LABS: Bedside Glucose 155 mg/dL (74-106)
[2024-05-21] MEDS: Gabapentin 100 MG Capsule PO (18:07)
== END 2024-05-21 19:30 | disposition skilled nursing facility (03) | DRG 981 ==
LOC: ED 05-04 05:29 → MS3 05-04 05:31
PROVIDERS: Anesthesiology; Family Medicine; Internal Medicine; Internal Medicine Gastroenterology; Podiatrist; Student in an Organized Health Care Education/Training Program; Admitting Provider Hospitalist; Emergency Provider Emergency Medicine; PCP Family Medicine; Visit Provider Hospitalist
PROC: 0HRMXK4 Replacement of Right Foot Skin with Nonautologous Tissue Substitute, Partial Thickness, External Approach (ICD-10-PCS; CPT 29893; principal; 2024-05-10 07:45)
PROC: 0DJD8ZZ Inspection of Lower Intestinal Tract, Via Natural or Artificial Opening Endoscopic (ICD-10-PCS; CPT 45378; principal; 2024-05-15 15:40)
DX: I12.0 Hypertensive chronic kidney disease with stage 5 chronic kidney disease or end stage renal disease (principal); K25.4 Chronic or unspecified gastric ulcer with hemorrhage; N18.6 End stage renal disease; M86.171 Other acute osteomyelitis, right ankle and foot; M86.172 Other acute osteomyelitis, left ankle and foot; D62 Acute posthemorrhagic anemia; R45.851 Suicidal ideations; L97.412 Non-pressure chronic ulcer of right heel and midfoot with fat layer exposed; L97.422 Non-pressure chronic ulcer of left heel and midfoot with fat layer exposed; E11.610 Type 2 diabetes mellitus with diabetic neuropathic arthropathy; D63.1 Anemia in chronic kidney disease; E11.42 Type 2 diabetes mellitus with diabetic polyneuropathy; F32.A Depression, unspecified; E03.9 Hypothyroidism, unspecified; G25.81 Restless legs syndrome; E11.22 Type 2 diabetes mellitus with diabetic chronic kidney disease; E11.65 Type 2 diabetes mellitus with hyperglycemia; Z79.4 Long term (current) use of insulin; E11.621 Type 2 diabetes mellitus with foot ulcer; I25.10 Atherosclerotic heart disease of native coronary artery without angina pectoris; E78.5 Hyperlipidemia, unspecified; I25.5 Ischemic cardiomyopathy; F41.9 Anxiety disorder, unspecified; Z99.2 Dependence on renal dialysis; K21.9 Gastro-esophageal reflux disease without esophagitis; K29.80 Duodenitis without bleeding; K57.30 Diverticulosis of large intestine without perforation or abscess without bleeding; E87.5 Hyperkalemia; Q66.12 Congenital talipes calcaneovarus, left foot; Q66.11 Congenital talipes calcaneovarus, right foot; M54.50 Low back pain, unspecified; E11.69 Type 2 diabetes mellitus with other specified complication; M67.01 Short Achilles tendon (acquired), right ankle; M67.02 Short Achilles tendon (acquired), left ankle; R62.7 Adult failure to thrive; B95.62 Methicillin resistant Staphylococcus aureus infection as the cause of diseases classified elsewhere; G89.29 Other chronic pain; R53.81 Other malaise; Z68.28 Body mass index [BMI] 28.0-28.9, adult; T38.3X6A Underdosing of insulin and oral hypoglycemic [antidiabetic] drugs, initial encounter; Z60.2 Problems related to living alone; Z79.02 Long term (current) use of antithrombotics/antiplatelets; Z79.82 Long term (current) use of aspirin; Z79.890 Hormone replacement therapy; Z79.899 Other long term (current) drug therapy; Z86.73 Personal history of transient ischemic attack (TIA), and cerebral infarction without residual deficits; Z95.5 Presence of coronary angioplasty implant and graft
CPT/HCPCS: 36415; 73620; 76000; 80048; 80076; 80307; 80329; 81001; 82077; 82274; 82962; 83036; 83735; 84100; 84443; 85014; 85018; 85025; 85027; 85610; 85730; 86850; 86900; 86901; 86920; 86922; 87070; 87075; 87077; 87186; 87205; 88305; 88311; 90937; 93005; 93922; 93985; 94668; 97110; 97162; 97166; 97530; 97535; 97803; 99285; C1713; J2997; J7030; J7040; P9016; A4216; G0257; G0480; J2405; J3486; Q5106

== ENCOUNTER 2024-06-04 07:36 | Observation (INO) | payer MEDICARE, MEDICAID, SELFPAY ==
[2018-09-21 13:23] VITALS: BMI 29.3
[2024-06-04] VITALS (8 sets, daily range): BP systolic 120–153; BP diastolic 48–84; PULSE 76–87; RESP 16–18; TEMP 36.4–37.2; O2SAT 92–97; BMI 27.9; BMI 26.9
--- NOTE | 2024-06-04 07:45 | CT_ITS ---
STUDY: CT BRAIN WITHOUT CONTRAST REASON FOR EXAM: Female, 58 years old. Acute altered mental status. Patient is confused. RADIATION DOSAGE (If Supplied By Facility): CTDIvol = ( 44.99 ) mGy, DLP = ( 1592.22 ) mGycm TECHNIQUE: Transaxial CT imaging of the brain was performed without administration of intravenous contrast material. Individualized dose optimization techniques were used for this CT. COMPARISON: Comparison is made with prior study dated March 25, 2024. FINDINGS: Normal soft tissue structures. Normal calvarium. There is mild cerebral atrophy with widening of the extra-axial spaces and ventricular dilatation. Once again, there is evidence of encephalomalacia involving the right posterior parietal occipital lobes as well as the right temporal lobe. There has been no change. Old lacunar infarcts in the basal ganglia bilaterally. Normal brainstem. Normal cerebellum. There is no intracranial hemorrhage. There are no findings of an acute ischemic infarction. Atherosclerotic calcification of the cavernous portions of the internal carotid arteries bilaterally. Normal visualized paranasal sinuses. CT/Brain/Head without Contrast IMPRESSION: Chronic involutional changes of the brain. Old infarction involving the right posterior parietal occipital lobes as well as the right temporal lobe. Old lacunar infarcts of the basal ganglia bilaterally. Electronically Signed: Ronnie Saavedra MD at 8:56 EDT ,
--- NOTE | 2024-06-04 07:45 | EKG12_ITS ---
Test Reason : ALT LOC Blood Pressure : / mmHG Vent. Rate : 079 BPM Atrial Rate : 079 BPM P-R Int : 166 ms QRS Dur : 088 ms QT Int : 390 ms P-R-T Axes : 058 011 042 degrees QTc Int : 447 ms Normal sinus rhythm Normal ECG Confirmed by Kayden Elaine ([id number]), pictures editor DAVID CARCAMO ([id number]) on 06/06/2024 8:17:18 AM Referred By: Confirmed By:Kayden Elaine
--- NOTE | 2024-06-04 07:48 | EX.ED.DYSGE1 ---
HPI History of Present Illness Chief Complaint: Alt LOC Detail of Chief Complaint: Acute altered mental status Informant: patient, EMS and SNF Onset/Context/Timing Onset: Today Context: Sudden Onset Timing: Continuous Quality: Patient is disoriented, at times inappropriate and detailed HPI narrative Location: Presents from nursing facility Current Severity: Patient is disoriented to time and place Maximum Severity: Unable to determine Worsened by: Patient states her daughter gave her a cookie. Question if laced with PCP Relieved by: Nothing Associated Symptoms Associated Symptoms: Unable to determine Narrative Narrative: Patient is a 58-year-old female. She has history of anemia and diabetic foot ulcer. Patient's had multiple visits for diabetic foot infection. She does have end-stage renal disease on hemodialysis. She states she makes urine. She was seen April 2022 for encephalopathy. She was seen at that time by me. Patient presents by ambulance from nursing facility. History is limited because she is disoriented and reported by paramedics was limited. Prior similar symptoms: Yes (Encephalopathy and hypoglycemia April 2022) Recent Illness/Hospitalization: Yes (Evaluation for foot deformity May 02, 2024.) [facility] Medical History Short Achilles tendon (acquired), left ankle Short Achilles tendon (acquired), right ankle Acquired cavovarus deformity of left foot Acquired cavovarus deformity of right foot Type 2 diabetes mellitus with diabetic polyneuropathy Adult failure to thrive ESRD (end stage renal disease) on dialysis Debility Charcot's joint, right ankle and foot Charcot's joint, left ankle and foot Non-pressure chronic 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 layer exposed Non-pressure chronic ulcer of other part of left foot with fat layer exposed Drowsiness Mental status, decreased Carotid artery stenosis MSSA bacteremia ESRD on hemodialysis Osteomyelitis Anemia in chronic illness Type 2 diabetes mellitus Foot osteomyelitis, left Chronic renal disease, stage 4, severely decreased glomerular filtration rate (GFR) between 15-29 mL/min/1.73 square meter Acute on chronic anemia Chronic ulcer of right foot with necrosis of bone Chronic kidney disease, stage 4 (severe) Diabetes mellitus with diabetic polyneuropathy Diabetic foot ulcers Chronic kidney disease, stage 3b Cellulitis Acute lumbar radiculopathy Essential hypertension Adult failure to thrive COVID-19 (08/28/21) Chronic ulcer of right leg with fat layer exposed Ulcer of left foot with fat layer exposed Chronic ulcer of right foot with fat layer exposed Hyperparathyroidism, secondary renal Iron deficiency anemia Bilateral edema of lower extremity Chronic foot pain Charcot's joint of right foot Diabetes Non-smoker Myocardial infarct Hypertension TIA (transient ischemic attack) Amputation foot, bilat 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 Ulcer of left foot with necrosis of muscle Ulcer of left foot with muscle involvement without evidence of necrosis Anxiety and depression Diabetic infection of left foot Delayed wound healing Non-compliance Diabetic polyneuropathy Ischemic cardiomyopathy Obesity (BMI 30.0-34.9) Acquired varus deformity of left foot Acquired varus deformity of right foot Atherosclerosis of [place] coronary artery of [place] heart without angina pectoris Hemoglobin A1c greater than 9.0% NSTEMI (non-ST elevated myocardial infarction) (09/20/18) GERD (gastroesophageal reflux disease) HLD (hyperlipidemia) Back pain, chronic RLS (restless legs syndrome) Home Medications ?Medication ?Instructions ?Recorded ?Last Taken ?Type paroxetine HCl 20 mg tablet 20 mg PO DAILY DEPRESSION 07/07/21 04/07/22 History bupropion HCl 150 mg 24 hr tablet, 150 mg PO DAILY mood 02/04/22 04/07/22 History extended release sennosides 8.6 mg-docusate sodium 2 tab PO BID PRN PRN Constipation 04/24/22 Unknown Rx 50 mg tablet (Stool #0 tabs Softener-Stimulant Laxative) ascorbic acid (vitamin C) 500 mg 500 mg PO BID supplement 05/05/22 Unknown History tablet (Vitamin C) ferrous sulfate 325 mg (65 mg 325 mg PO .three times a week 07/19/22 Unknown History iron) tablet anemia pantoprazole 40 mg tablet,delayed 40 mg PO BIDCM GERD 07/19/22 Unknown History release gabapentin 100 mg capsule 100 mg PO .COMPLEX PRN pain 11/26/23 Unknown History amlodipine 5 mg tablet 5 mg PO DAILY bp 12/16/23 Unknown History antacid extra assorted fruit 750 mg PO .every 4 hours PRN tums 12/16/23 Unknown History tablets calcitriol 0.5 mcg capsule 0.5 mcg PO .COMPLEX on dialysis 12/16/23 Unknown History calcium acetate(phosphat bind) 667 676 mg PO TID is on dialysis 12/16/23 Unknown History mg capsule folic acid 800 mcg tablet 0.8 mg PO DAILY supplement 12/16/23 Unknown History levothyroxine 25 mcg tablet 25 mcg PO DAILY thyroid 12/16/23 Unknown History nitroglycerin 0.4 mg sublingual 0.4 mg sublingual Q5M chest pain 12/16/23 Unknown History tablet (Nitrostat) aspirin 81 mg capsule 81 mg PO DAILY #30 caps 12/26/23 Unknown Rx atorvastatin 40 mg tablet 40 mg PO DAILY 03/18/24 Unknown History carvedilol 25 mg tablet 25 mg PO BID 03/18/24 Unknown History acetaminophen 325 mg tablet 650 mg (2 x 325 mg) PO Q6H PRN PRN 05/21/24 Unknown Rx Pain 1-10 Or Fever>100.7 #0 tabs arginine 7 gram-glutam 7 1 packet PO BIDCM #0 ea 05/21/24 Unknown Rx gram-CaHMB 1.5 [id number]-[id number]-min oral pwd pkt (Ted (with collagen)) diphenhydramine HCl 25 mg capsule 25 mg PO Q6H PRN PRN Itching #0 05/21/24 Unknown Rx (Banophen) caps hydralazine 50 mg tablet 50 mg PO TID #0 tabs 05/21/24 Unknown Rx insulin lispro 100 unit/mL See Protocol subcut TIDAC #0 mL 05/21/24 Unknown Rx subcutaneous pen (Humalog KwikPen (U-100) Insulin) lorazepam 0.5 mg tablet 0.5 mg PO MoWeFr@1000 #0 tabs 05/21/24 Unknown Rx melatonin 3 mg tablet 3 mg PO QHS PRN PRN Insomnia #0 05/21/24 Unknown Rx tabs menthol 0.44 %-zinc oxide 20.6 % 1 applic topical BID #0 grams 05/21/24 Unknown Rx topical ointment (Calmoseptine) oxycodone 5 mg tablet 5 mg PO Q6H PRN pain 7 days #28 05/21/24 Unknown Rx tabs sucralfate 1 gram tablet 1 g PO TID@0700,1100,1600 #0 tabs 05/21/24 Unknown Rx sulfamethoxazole 800 0.5 tab PO 1200 #0 tabs 05/21/24 Unknown Rx mg-trimethoprim 160 mg tablet Lactobacillus rhamnosus GG 10 1 cap PO BID 06/04/24 Unknown History billion cell capsule (Culturelle) Allergy/AdvReac Type Severity Reaction Status Date / Time oxycodone (From OxyContin) Allergy sob Verified 06/04/24 07:41 Penicillins Allergy swelling Verified 06/04/24 07:41 in throat vancomycin Allergy Itching Verified 06/04/24 07:41 metronidazole AdvReac Nausea Verified 06/04/24 07:41 Family History Mother Diabetes CVA (cerebral vascular accident) Brother CAD (coronary artery disease) CABG X 3 Cancer testicular Diabetes Brother CAD (coronary artery disease) CABG X3 Diabetes Brother CAD (coronary artery disease) Stents Diabetes Sister CAD (coronary artery disease) CABG x 3 CVA (cerebral vascular accident) Diabetes Surgical History History of History of foot surgery History of bilateral carpal tunnel release History of rotator cuff surgery History of coronary artery stent placement (12/31/20) Social History household members: none number of children: 2 current occupational status: disabled Smoking Status: Never smoker alcohol intake: never substance use type: does not use caffeine: Yes Type: carbonated beverages Number of servings: 2 ROS ROS ED Review of Systems ROS Unobtainable: due to mental status Cardiovascular Cardiovascular: Reports chest pain and other Details: Patient pointed to her left shoulder. Unable to obtain any other detail. EXAM Physical Exam Const Vital Signs: 06/04/24 07:37 06/04/24 08:51 06/04/24 10:00 Temperature 97.5 F L Temperature Source Temporal Pulse Rate 79 82 82 Respiratory Rate 18 17 16 Blood Pressure 123/70 H 141/74 H 120/48 L Blood Pressure Mean 87 96 72 Pulse Ox 96 97 97 Oxygen Delivery Method Room Air Room Air Room Air [facility] MDM History & Record Review Additional record(s) reviewed:: Prior outpatient record, Prior ED visit and Prior labs Lab Data Attestation: I reviewed the patient's lab results. Lab results narrative: CBC reveals anemia. She has chronic anemia reviewing prior records. Blood glucose was 119. Comprehensive metabolic panel is marked for BUN/creatinine of 74 and 6.64, which is patient's baseline. Estimated GFR 7. Patient is on hemodialysis. Transaminases normal. Albumin slightly low at 2.4. UA reveals contaminated specimen with 25-50 squamous epithelial cells. Talk screen was positive for cannabinoids. Labs: Laboratory Results - last 24 hr 06/04/24 06/04/24 06/04/24 08:00 08:10 08:16 WBC 10.6 RBC 3.20 L Hgb 8.6 L Hct 28.2 L MCV 88.1 MCH 26.9 L MCHC 30.5 L RDW Std Deviation 53.3 H RDW Coeff of Fior 16.4 H Plt Count 321 MPV 9.0 Immature Gran % (Auto) 0.600 Neut % (Auto) 84.1 H Lymph % (Auto) 5.3 L Stanley % (Auto) 8.8 Eos % (Auto) 0.8 Baso % (Auto) 0.4 Absolute Neuts (auto) 8.9 H Absolute Lymphs (auto) 0.56 L Nucleated RBC % 0 Sodium 135 L Potassium 4.8 Chloride 98 Carbon Dioxide 26.0 Anion Gap 11 BUN 74 H Creatinine 6.64 H Estim Creat Clear Calc 9.43 Est GFR (MDRD) Af Amer 8 L Est GFR (MDRD) Non-Af 7 L BUN/Creatinine Ratio 11.1 Glucose 129 H Calcium 9.1 Total Bilirubin 0.50 AST 21 ALT 16 Alkaline Phosphatase 329 H Ammonia 15.0 Total Protein 7.1 Albumin 2.4 L Globulin 4.7 H Albumin/Globulin Ratio 0.5 L Urine Color YELLOW Urine Clarity Sl. Cloudy Urine pH 8.0 Ur Specific Reading 1.010 Urine Protein 100 H Urine Glucose (UA) Normal Urine Ketones Negative Urine Occult Blood 10 H Urine Nitrite Negative Urine Bilirubin Negative Urine Urobilinogen Normal Ur Leukocyte Esterase 25 H Urine RBC 0 SEEN Urine WBC 0 SEEN Ur Squamous Epith Cells 25-50 SEEN Urine Bacteria 1+ Urine Mucus 0 SEEN Urine Opiates Screen NEGATIVE Urine Methadone Screen NEGATIVE Ur Barbiturates Screen NEGATIVE Ur Phencyclidine Scrn NEGATIVE Ur Amphetamines Screen NEGATIVE MDMA (Ecstasy) Screen NEGATIVE U Benzodiazepines Scrn NEGATIVE Urine Cocaine Screen NEGATIVE U Cannabinoids Screen POSITIVE H Ur Drug Screen Comment POC Glucose 119 H Radiography Diagnostic Testing: Clinical Impression(s) from Imaging Studies Brain CT 06/04/24 07:45 IMPRESSION: Chronic involutional changes of the brain. Old infarction involving the right posterior parietal occipital lobes as well as the right temporal lobe. Old lacunar infarcts of the basal ganglia bilaterally. Electronically Signed: Ronnie Saavedra MD at 8:56 EDT , CT of the head reveals prior strokes on the right. There is no acute process noted i.e. intracranial bleed. Awaiting formal read by radiologist, [id number] Treatment and Re-Evaluation :: In light of a normal CAT scan and no obvious infectious etiology or electrolyte abnormality suspect patient's altered mental status is due to cannabinoids that were placed in a cookie she received from her daughter. She at this time is socially inappropriate and disoriented. Nursing facility states they are not able to take her back at this time. Discharge Plan Triage Chief Complaint: Alt LOC ED Provider: Devin Lincoln Dx/Rx/DC Orders Clinical Impression: Acute alteration in mental status, [place] coma scale score 13-15, at arrival to emergency department, Adverse effect of synthetic cannabinoids, initial encounter Prescriptions: No Action paroxetine HCl 20 mg tablet 20 mg PO DAILY Patient Comments: TAKE 1 TABLET BY MOUTH EVERY DAY IN THE EVENING bupropion HCl 150 mg tablet extended release 24 hr 150 mg PO DAILY Patient Comments: TAKE 1 TABLET BY MOUTH EVERY DAY sennosides-docusate sodium [Stool Softener-Stimulant Laxat] 8.6-50 mg Tablet 2 tab PO BID PRN PRN (Reason: Constipation) Qty: 0 0RF ascorbic acid (vitamin C) [Vitamin C] 500 mg Tablet 500 mg PO BID pantoprazole 40 mg tablet,delayed release (DR/EC) 40 mg PO BIDCM ferrous sulfate 325 mg (65 mg iron) tablet 325 mg PO .three times a week Patient Comments: takes three times a week, on Tuesday, and Tuesday gabapentin 100 mg capsule 100 mg PO .COMPLEX PRN (Reason: pain) Rx Instructions: 100 mg orally 3 times a week Tuesday, Tuesday and Tuesday atorvastatin 40 mg tablet 40 mg PO DAILY carvedilol 25 mg tablet 25 mg PO BID acetaminophen 325 mg Tablet 650 mg PO Q6H PRN PRN (Reason: Pain 1-10 Or Fever>100.7) Qty: 0 0RF diphenhydramine HCl [Banophen] 25 mg Capsule 25 mg PO Q6H PRN PRN (Reason: Itching) Qty: 0 0RF melatonin 3 mg Tablet 3 mg PO QHS PRN PRN (Reason: Insomnia) Qty: 0 0RF lorazepam 0.5 mg Tablet 0.5 mg PO MoWeFr@1000 Qty: 0 0RF hydralazine 50 mg Tablet 50 mg PO TID Qty: 0 0RF menthol-zinc oxide [Calmoseptine] 0.44-20.6 % Ointment 1 applic topical BID Qty: 0 0RF Protocol: *Topical Application Instructions APPLICATION INSTRUCTIONS: BUTTOCKS Ted (with collagen) 7-7-1.5 gram Powder In Packet 1 packet PO BIDCM Qty: 0 0RF sucralfate 1 gram Tablet 1 g PO TID@0700,1100,1600 Qty: 0 0RF sulfamethoxazole-trimethoprim 800-160 mg Tablet 0.5 tab PO 1200 Qty: 0 0RF insulin lispro [Humalog KwikPen Insulin] 100 unit/mL Insulin Pen See Protocol subcut TIDAC Qty: 0 0RF Protocol: 3. Sliding Scale Insulin Med Dosing Condition: 150-189 mg/dl = 1 unit Condition: 190-229 mg/dl = 2 units Condition: 230-269 mg/dl = 3 units Condition: 270-309 mg/dl = 4 units Condition: 310-349 mg/dl = 5 units Condition: 350-399 mg/dl = 6 units Condition: 400-449 mg/dl = 7 units Condition: Greater than 449 call physician Protocol Text: Suggested for: - Patients on Total Daily Insulin Dose of 37-55 units - Obese, infected, or steroid patients MEDIUM DOSING ALGORITHIM oxycodone 5 mg tablet 5 mg PO Q6H PRN (Reason: pain) 7 Days Qty: 28 0RF calcium acetate(phosphat bind) 667 mg capsule 676 mg PO TID Patient Comments: TAKE 1 CAPSULE BY MOUTH THREE TIMES A DAY WITH FOOD folic acid 800 mcg tablet 0.8 mg PO DAILY Patient Comments: TAKE 1 TABLET BY MOUTH EVERY DAY levothyroxine 25 mcg tablet 25 mcg PO DAILY Patient Comments: TAKE 1 TABLET BY MOUTH EVERY DAY BEFORE BREAKFAST amlodipine 5 mg tablet 5 mg PO DAILY antacid extra assorted fruit tablets 750 mg PO .every 4 hours PRN (Reason: tums) calcitriol 0.5 mcg capsule 0.5 mcg PO .COMPLEX Rx Instructions: 0.5 mcg orally three times a week; nitroglycerin [Nitrostat] 0.4 mg tablet, sublingual 0.4 mg sublingual Q5M Rx Instructions: do not exceed 3 doses per episode aspirin 81 mg capsule 81 mg PO DAILY Qty: 30 1RF Culturelle 10 billion cell capsule 1 cap PO BID Primary Care Provider: Raúl Eric Referrals: Raúl Eric MD [Primary Care Provider] - Print Language: Malaysian Disposition Disposition: Acute Care Hospital [facility]
[2024-06-04 08:12] LABS: Absolute Lymphocyte Count 0.56 X10^3/uL (0.83-4.51); Absolute Neutrophil Count 8.9 X10^3/uL (2.0-7.7); Basophil# 0.04 X10^3/uL; Basophil% 0.4 % (0-1); Eosinophil# 0.08 X10^3/uL; Eosinophils% 0.8 % (0-5); Hematocrit 28.2 % (37-47); Hemoglobin 8.6 g/dL (12.0-15.0); Lymphocyte # 0.56 X10^3/ul (0.83-4.51); Lymphocyte % 5.3 % (19-41); Mean Corp Hgb Conc 30.5 g/dL (32-36); Mean Corpuscular Hgb 26.9 pg (27.0-32.0); Mean Corpuscular Volume 88.1 fL (81-99); Monocyte# 0.93 X10^3/uL; Monocyte% 8.8 % (0-10); NRBC Flagged by Analyzer 0 % (0-5); Neutrophil # 8.89 X10^3/uL (2.7-7.7); Neutrophil % 84.1 % (47-70); POSITIVE DIFFERENTIAL YES; Platelet Count 321 K/mm3 (150-450); RBC Distribution Width CV 16.4 % (11.6-14.6); RBC Distribution Width SD 53.3 fl (35.1-43.9); White Blood Count 10.6 K/mm3 (4.4-11.0)
[2024-06-04 08:21] LABS: Mucous, Urine 0 SEEN /hpf (<or=2+); Red Blood Cells-Urine 0 SEEN /hpf (0-5); White Blood Cells 0 SEEN /hpf (0-5)
[2024-06-04 08:35] LABS: Bedside Glucose 119 mg/dL (74-106)
[2024-06-04 08:35] LABS: ALB/GLOB Ratio 0.5 RATIO (0.9-2.4); AST(SGOT) 21 U/L (15-37); Alanine Aminotransfer ALT/SGPT 16 U/L (13-56); Albumin, Serum 2.4 g/dL (3.2-5.0); Alkaline Phosphatase 329 U/L (45-117); Anion Gap 11 (5-15); BUN 74 mg/dL (7-18); BUN/Creat Ratio 11.1 RATIO (10-20); Calcium,Total 9.1 mg/dL (8.5-10.1); Chloride 98 mmol/L (98-107); Creatinine, Serum 6.64 mg/dL (0.55-1.02); EST Glomerular Filtration Rate 7 mL/min (>60); Est Glom Filt Rate - Afr Amer 8 mL/min (>60); Estimated Creatinine Clearance 9.43 ml/min; Globulin 4.7 g/dL (2.2-4.2); Glucose 129 mg/dL (74-106); Potassium 4.8 mmol/L (3.5-5.1); Protein, Total 7.1 g/dL (6.4-8.2); Sodium Level 135 mmol/L (136-145)
[2024-06-04 08:52] LABS: Glucose, Dipstick Normal (Normal); Ketone-Dipstick Negative (Negative); Leukocyte Esterase-Dipstick 25 /ul (Negative); Nitrite-Dipstick Negative (Negative); Occult Blood-Urine 10 /ul (Negative); Protein-Dipstick 100 mg/dl (Negative); Urine Bilirubin Dipstick Negative (Negative); Urine Urobilinogen Normal (Normal)
[2024-06-04 09:08] LABS: Squamous Epithelial Cells - UA 25-50 SEEN /hpf (5-10)
[2024-06-04 09:09] LABS: Bacteria 1+ /hpf (None Seen)
[2024-06-04 09:46] LABS: Color, Urine YELLOW (Yellow); Urine Clarity Sl. Cloudy (Clear)
[2024-06-04 09:51] LABS: Amphetamine Urine VISTA NEGATIVE (<1000 ng/mL); Barbiturate Urine VISTA NEGATIVE (< 200 ng/mL); Benzodiazepine Urine VISTA NEGATIVE (< 200 ng/mL); Cocaine Urine VISTA NEGATIVE (< 300 ng/mL); Ecstacy Urine VISTA NEGATIVE (< 500 ng/mL); Methadone Urine VISTA NEGATIVE (< 300 ng/mL); PCP Urine VISTA NEGATIVE (< 25 ng/mL); THC Urine VISTA POSITIVE (< 50 ng/mL); Vista UDS pH Range 7
--- NOTE | 2024-06-04 11:16 | HP.PCM_ITS ---
HPI - General General Date of Admission: 06/04/24 Date of Service: 06/04/24 Chief Complaint: altered mental status HPI Narrative DIONY ROCHA, is a 58 F with a PMH as outlined who presents via the ED on 06/04/2024 with a complaint of altered mental status. She was brought in from her SNF after being found confused. Apparently her daughter gave her cookies with marijuana in it, and she subsequently became confused. She was therefore brought in to the ED. she is able to tell me that she was having chronic pain to her daughter gave her a brownie. She is claims she ate only 1 brownie but subsequently became confused. Patient was able to answer questions the ED but remained confused. She thought she was in hell and said she saw [place] and God and Satan in hell. Vitals in the ED were blood pressure 120/48, pulse rate of 82 respirate rate of 16 with oxygen saturation of 97% on room air. CBC showed hemoglobin of 8.6 with WBC of 10.6 and platelets of 321. Chemistry showed sodium of 135 with potassium of 4.8 and bicarb of 26 with creatinine of 6.64. Urinalysis showed 1+ bacteria. Urine tox screen was positive for cannabinoids. CT of the brain showed chronic involutional changes of the brain and old infarct involving the right posterior parietal occipital lobes as well as the right temporal lobe and old lacunar infarcts of the basal ganglia bilaterally. She is being admitted to be managed for acute encephalopathy likely due to cannabinoid overdose. [facility] Medical History Short Achilles tendon (acquired), left ankle Short Achilles tendon (acquired), right ankle Acquired cavovarus deformity of left foot Acquired cavovarus deformity of right foot Type 2 diabetes mellitus with diabetic polyneuropathy Adult failure to thrive ESRD (end stage renal disease) on dialysis Debility Charcot's joint, right ankle and foot Charcot's joint, left ankle and foot Non-pressure chronic 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 layer exposed Non-pressure chronic ulcer of other part of left foot with fat layer exposed Drowsiness Mental status, decreased Carotid artery stenosis MSSA bacteremia ESRD on hemodialysis Osteomyelitis Anemia in chronic illness Type 2 diabetes mellitus Foot osteomyelitis, left Chronic renal disease, stage 4, severely decreased glomerular filtration rate (GFR) between 15-29 mL/min/1.73 square meter Acute on chronic anemia Chronic ulcer of right foot with necrosis of bone Chronic kidney disease, stage 4 (severe) Diabetes mellitus with diabetic polyneuropathy Diabetic foot ulcers Chronic kidney disease, stage 3b Cellulitis Acute lumbar radiculopathy Essential hypertension Adult failure to thrive COVID-19 (08/28/21) Chronic ulcer of right leg with fat layer exposed Ulcer of left foot with fat layer exposed Chronic ulcer of right foot with fat layer exposed Hyperparathyroidism, secondary renal Iron deficiency anemia Bilateral edema of lower extremity Chronic foot pain Charcot's joint of right foot Diabetes Non-smoker Myocardial infarct Hypertension TIA (transient ischemic attack) Amputation foot, bilat 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 Ulcer of left foot with necrosis of muscle Ulcer of left foot with muscle involvement without evidence of necrosis Anxiety and depression Diabetic infection of left foot Delayed wound healing Non-compliance Diabetic polyneuropathy Ischemic cardiomyopathy Obesity (BMI 30.0-34.9) Acquired varus deformity of left foot Acquired varus deformity of right foot Atherosclerosis of ham[place] coronary artery of [place] heart without angina pectoris Hemoglobin A1c greater than 9.0% NSTEMI (non-ST elevated myocardial infarction) (09/20/18) GERD (gastroesophageal reflux disease) HLD (hyperlipidemia) Back pain, chronic RLS (restless legs syndrome) Home Medications ?Medication ?Instructions ?Recorded ?Last Taken ?Type paroxetine HCl 20 mg tablet 20 mg PO DAILY DEPRESSION 07/07/21 04/07/22 History bupropion HCl 150 mg 24 hr tablet, 150 mg PO DAILY mood 02/04/22 04/07/22 History extended release sennosides 8.6 mg-docusate sodium 2 tab PO BID PRN PRN Constipation 04/24/22 Unknown Rx 50 mg tablet (Stool #0 tabs Softener-Stimulant Laxative) ascorbic acid (vitamin C) 500 mg 500 mg PO BID supplement 05/05/22 Unknown History tablet (Vitamin C) ferrous sulfate 325 mg (65 mg 325 mg PO .three times a week 07/19/22 Unknown History iron) tablet anemia pantoprazole 40 mg tablet,delayed 40 mg PO BIDCM GERD 07/19/22 Unknown History release gabapentin 100 mg capsule 100 mg PO .COMPLEX PRN pain 11/26/23 Unknown History amlodipine 5 mg tablet 5 mg PO DAILY bp 12/16/23 Unknown History antacid extra assorted fruit 750 mg PO .every 4 hours PRN tums 12/16/23 Unknown History tablets calcitriol 0.5 mcg capsule 0.5 mcg PO .COMPLEX on dialysis 12/16/23 Unknown History calcium acetate(phosphat bind) 667 676 mg PO TID is on dialysis 12/16/23 Unknown History mg capsule folic acid 800 mcg tablet 0.8 mg PO DAILY supplement 12/16/23 Unknown History levothyroxine 25 mcg tablet 25 mcg PO DAILY thyroid 12/16/23 Unknown History nitroglycerin 0.4 mg sublingual 0.4 mg sublingual Q5M chest pain 12/16/23 Unknown History tablet (Nitrostat) aspirin 81 mg capsule 81 mg PO DAILY #30 caps 12/26/23 Unknown Rx atorvastatin 40 mg tablet 40 mg PO DAILY 03/18/24 Unknown History carvedilol 25 mg tablet 25 mg PO BID 03/18/24 Unknown History acetaminophen 325 mg tablet 650 mg (2 x 325 mg) PO Q6H PRN PRN 05/21/24 Unknown Rx Pain 1-10 Or Fever>100.7 #0 tabs arginine 7 gram-glutam 7 1 packet PO BIDCM #0 ea 05/21/24 Unknown Rx gram-CaHMB 1.5 dtyc-kzkex-xn-min oral pwd pkt (Ted (with collagen)) diphenhydramine HCl 25 mg capsule 25 mg PO Q6H PRN PRN Itching #0 05/21/24 Unknown Rx (Banophen) caps hydralazine 50 mg tablet 50 mg PO TID #0 tabs 05/21/24 Unknown Rx insulin lispro 100 unit/mL See Protocol subcut TIDAC #0 mL 05/21/24 Unknown Rx subcutaneous pen (Humalog KwikPen (U-100) Insulin) lorazepam 0.5 mg tablet 0.5 mg PO MoWeFr@1000 #0 tabs 05/21/24 Unknown Rx melatonin 3 mg tablet 3 mg PO QHS PRN PRN Insomnia #0 05/21/24 Unknown Rx tabs menthol 0.44 %-zinc oxide 20.6 % 1 applic topical BID #0 grams 05/21/24 Unknown Rx topical ointment (Calmoseptine) oxycodone 5 mg tablet 5 mg PO Q6H PRN pain 7 days #28 05/21/24 Unknown Rx tabs sucralfate 1 gram tablet 1 g PO TID@0700,1100,1600 #0 tabs 05/21/24 Unknown Rx sulfamethoxazole 800 0.5 tab PO 1200 #0 tabs 05/21/24 Unknown Rx mg-trimethoprim 160 mg tablet Lactobacillus rhamnosus GG 10 1 cap PO BID 06/04/24 Unknown History billion cell capsule (Culturelle) Allergy/AdvReac Type Severity Reaction Status Date / Time oxycodone (From OxyContin) Allergy sob Verified 06/04/24 07:41 Penicillins Allergy swelling Verified 06/04/24 07:41 in throat vancomycin Allergy Itching Verified 06/04/24 07:41 metronidazole AdvReac Nausea Verified 06/04/24 07:41 Family History Mother Diabetes CVA (cerebral vascular accident) Brother CAD (coronary artery disease) CABG X 3 Cancer testicular Diabetes Brother CAD (coronary artery disease) CABG X3 Diabetes Brother CAD (coronary artery disease) Stents Diabetes Sister CAD (coronary artery disease) CABG x 3 CVA (cerebral vascular accident) Diabetes Surgical History History of History of foot surgery History of bilateral carpal tunnel release History of rotator cuff surgery History of coronary artery stent placement (12/31/20) Social History household members: none number of children: 2 current occupational status: disabled Smoking Status: Never smoker alcohol intake: never substance use type: does not use caffeine: Yes Type: carbonated beverages Number of servings: 2 ROS Constitutional Constitutional: Reports fatigue, malaise and weakness; Denies anorexia, chills or fever(s) Eyes Eyes: Denies change in vision ENT HEENT: Denies dysphagia, headache(s) or hearing loss Cardiovascular Cardiovascular: Denies chest pain, edema, orthopnea, palpitations, paroxysmal nocturnal dyspnea or syncope Respiratory/Chest Respiratory/Chest: Denies cough, shortness of breath at rest or shortness of breath with exertion Gastrointestinal Gastrointestinal: Denies abdominal pain, constipation, nausea or vomiting Genitourinary Genitourinary: Denies dysuria, nocturia or oliguria Musculoskeletal Musculoskeletal: Reports back pain; Denies joint pain or muscle weakness Neurologic Neurologic: Reports confusion and weakness; Denies dizziness, focal weakness, headache(s), lack of coordination, numbness, seizures, tingling or tremor(s) Psychiatric Psychiatric: Denies anxiety or depression Endocrine Endocrinology: Denies change in body appearance Vital Signs Vital Signs Vital Signs: 06/04/24 07:37 06/04/24 08:51 06/04/24 10:00 Temperature 97.5 F L Temperature Source Temporal Pulse Rate 79 82 82 Respiratory Rate 18 17 16 Blood Pressure 123/70 H 141/74 H 120/48 L Blood Pressure Mean 87 96 72 Pulse Ox 96 97 97 Oxygen Delivery Method Room Air Room Air Room Air Weight Weight: 167 lb 15.876 oz Body Mass Index (BMI) 27.9 Physical Exam Const alert and no apparent distress General Appearance: cooperative Orientation / Consciousness: confused HEENT normocephalic, head/scalp atraumatic, moist oral mucous membranes and oropharynx normal Mouth: dry mucous membranes Eyes PERRL and EOMs intact bilaterally Neck no lymphadenopathy, supple and no JVD Lymph Lymphatic: no lymphadenopathy noted and no lymphedema noted Resp normal respiratory effort, normal air movement and clear to auscultation bilaterally Cardio regular rate, regular rhythm, S1 normal heart sound, S2 normal heart sound and no murmurs GI normal to inspection, nondistended, normoactive bowel sounds, soft to palpation, non-tender and non-distended Extremity normal capillary refill, no clubbing, cyanosis or edema and no calf tenderness Extremity Narrative: both feet and ankles wrapped in bandage; both bandages soaked through. General Extremity: no tenderness to palpation of joints or extremities Skin Skin Narrative: as under extremities. Neuro CN's II-XII intact bilaterally and no focal motor deficits Motor Exam: general weakness Psych Psych Narrative: has episodic confusion Mood & Affect: flat affect Thought Content: delusion(s) Results Lab / Micro Data 06/04/24 08:00 06/04/24 08:00 Labs: Laboratory Results - last 24 hr 06/04/24 08:00: WBC 10.6, RBC 3.20 L, Hgb 8.6 L, Hct 28.2 L, MCV 88.1, MCH 26.9 L, MCHC 30.5 L, RDW Std Deviation 53.3 H, RDW Coeff of Fior 16.4 H, Plt Count 321, MPV 9.0, Immature Gran % (Auto) 0.600, Neut % (Auto) 84.1 H, Lymph % (Auto) 5.3 L, Kendall % (Auto) 8.8, Eos % (Auto) 0.8, Baso % (Auto) 0.4, Absolute Neuts (auto) 8.9 H, Absolute Lymphs (auto) 0.56 L, Nucleated RBC % 0, Sodium 135 L, Potassium 4.8, Chloride 98, Carbon Dioxide 26.0, Anion Gap 11, BUN 74 H, C reatinine 6.64 H, Estim Creat Clear Calc 9.43, Est GFR (MDRD) Af Amer 8 L, Est GFR (MDRD) Non-Af 7 L, BUN/Creatinine Ratio 11.1, Glucose 129 H, Calcium 9.1, Total Bilirubin 0.50, AST 21, ALT 16, Alkaline Phosphatase 329 H, Ammonia 15.0, Total Protein 7.1, Albumin 2.4 L, Globulin 4.7 H, Albumin/Globulin Ratio 0.5 L 06/04/24 08:10: POC Glucose 119 H 06/04/24 08:16: Urine Color YELLOW, Urine Clarity Sl. Cloudy, Urine pH 8.0, Ur Specific [place] 1.010, Urine Protein 100 H, Urine Glucose (UA) Normal, Urine Ketones Negative, Urine Occult Blood 10 H, Urine Nitrite Negative, Urine Bilirubin Negative, Urine Urobilinogen Normal, Ur Leukocyte Esterase 25 H, Urine RBC 0 SEEN, Urine WBC 0 SEEN, Ur Squamous Epith Cells 25-50 SEEN, Urine Bacteria 1+, Urine Mucus 0 SEEN, Urine Opiates Screen NEGATIVE, Urine Methadone Screen NEGATIVE, Ur Barbiturates Screen NEGATIVE, Ur Phencyclidine Scrn NEGATIVE, Ur Amphetamines Screen NEGATIVE, MDMA (Ecstasy) Screen NEGATIVE, U Benzodiazepines Scrn NEGATIVE, Urine Cocaine Screen NEGATIVE, U Cannabinoids Screen POSITIVE H, Ur Drug Screen Comment Imaging Radiology Impression Brain CT 06/04/24 07:45 IMPRESSION: Chronic involutional changes of the brain. Old infarction involving the right posterior parietal occipital lobes as well as the right temporal lobe. Old lacunar infarcts of the basal ganglia bilaterally. Electronically Signed: Ronnie Saavedra MD at 8:56 EDT , Assessment & Plan Assessment/Plan (1) Acute alteration in mental status: PLAN: Plan #Acute encephalopathy likely due to cannabinoid toxicity * Patient states she was having chronic back pain so her daughter gave her some brownies which contained cannabis. She says she ate only 1 but subsequently became very confused and agitated so was brought to the ED. * urine tox was positive for cannabis * CT of the brain showed no acute intracranial pathology * admit to Med surg * hold off on hydration with IVF as she is on dialysis. * PT/OT consult * monitor until effect of cannabis wears off. * #ESRD * On hemodialysis Wednesdays. Consult nephrology. * #History of short Achilles tendon of both right and left ankle s/p corrective surgery for neuropathic ulcerations of both feet * Both feet wrapped in bandage. Bandages a blood soaked through. She was discharged to her senior care facility on p.o. Bactrim for 6-week course. * Continue Bactrim. Consult podiatry and wound care. #History of anemia due to bleeding peptic ulcers * On pantoprazole. Had recent EGD during her previous admission in May 2024 which showed multiple oozing gastric ulcers which were cauterized. Her aspirin was discontinued at that time. #Type 2 diabetes mellitus with neuropathy: On Lantus. Insulin sliding scale. Accu-Cheks ACHS. #Depression with anxiety: On antidepressants #Hyperlipidemia: On statin #GERD: On PPI #History of chronic back pain: Gets episodic epidural steroid injections on outpatient basis. DVT prophylaxis; SCDs Charges/Coding Visit Charges Inpatient E&M: 64237 Init Hosp L3
--- NOTE | 2024-06-04 12:09 | WOUNDNOTE ---
wound photo: left lateral foot
--- NOTE | 2024-06-04 12:10 | WOUNDNOTE ---
wound photo: left foot
--- NOTE | 2024-06-04 12:10 | WOUNDNOTE ---
wound photo: right foot
--- NOTE | 2024-06-04 12:11 | WOUNDNOTE ---
wound photo: right lateral foot
[2024-06-04 12:56] LABS: Bedside Glucose 104 mg/dL (74-106)
[2024-06-04] MEDS: hydrALAZINE 50 MG Tablet PO ×2 (13:58→22:33)
[2024-06-04 14:02] LABS: M R Staph aureus DNA By PCR Negative (Negative); Probe Check PASS; Specimen Processing Control PASS; Staph aureus DNA By PCR POSITIVE (Negative)
[2024-06-04] MEDS: Acetaminophen 325 MG Tablet 650 MG PO (15:46)
--- NOTE | 2024-06-04 15:48 | CASEMGMT ---
Social Work- SW met with pt to offer support and calming exercises. Pt was labile, not oriented, and expressing flight of ideas. Pt spoke of [place], God and bad dreams. Pt was able to be calmed for short periods of time. SW will remain available to follow. ERIN Hartman
[2024-06-04] MEDS: Ondansetron 4 MG/2 ML Vial IV (15:51)
[2024-06-04] MEDS: 0.9% Saline Lock 10 ML Syringe IV ×2 (15:51→22:29)
[2024-06-04] MEDS: Pantoprazole Sodium 40 MG Tablet PO (16:19)
[2024-06-04] MEDS: Smz/Tmp Ds Tablet 0.5 TABLET PO (16:19)
[2024-06-04] MEDS: Insulin Lispro 100 UNIT/ML INSULN.PEN SC (16:47)
[2024-06-04 16:48] LABS: Bedside Glucose 157 mg/dL (74-106)
[2024-06-04] MEDS: Carvedilol 25 MG Tablet PO (22:33)
[2024-06-04] MEDS: Lactobacillis Acidophilus 1 CAP PO (22:33)
[2024-06-04] MEDS: Ascorbic Acid 500 MG Tablet PO (22:33)
[2024-06-04 22:59] LABS: Bedside Glucose 103 mg/dL (74-106)
[2024-06-05] VITALS (13 sets, daily range): BP systolic 98–238; BP diastolic 53–77; PULSE 63–78; RESP 16–18; TEMP 36.4–37.3; O2SAT 90–97; BMI 26.9
[2024-06-05] MEDS: Acetaminophen 325 MG Tablet 650 MG PO ×3 (04:03→19:28)
[2024-06-05] MEDS: Levothyroxine 25 MCG TABLET PO (06:59)
[2024-06-05] MEDS: hydrALAZINE 50 MG Tablet PO (06:59)
[2024-06-05] MEDS: Sucralfate 1 GM Tablet PO ×3 (07:00→16:29)
[2024-06-05 07:23] LABS: Bedside Glucose 105 mg/dL (74-106)
[2024-06-05 08:03] LABS: Absolute Neutrophil Count 7.6 X10^3/uL (2.0-7.7); Basophil# 0.05 X10^3/uL; Basophil% 0.6 % (0-1); Eosinophil# 0.18 X10^3/uL; Hematocrit 25.6 % (37-47); Hemoglobin 7.9 g/dL (12.0-15.0); Lymphocyte % 5.5 % (19-41); Mean Corp Hgb Conc 30.9 g/dL (32-36); Mean Corpuscular Hgb 27.3 pg (27.0-32.0); Mean Corpuscular Volume 88.6 fL (81-99); Mean Platelet Vol. 9.7 fl (6.2-12.0); Monocyte# 0.71 X10^3/uL; Monocyte% 7.8 % (0-10); NRBC Flagged by Analyzer 0 % (0-5); Neutrophil # 7.59 X10^3/uL (2.7-7.7); Neutrophil % 83.5 % (47-70); POSITIVE DIFFERENTIAL YES; Platelet Count 314 K/mm3 (150-450); RBC Distribution Width CV 16.6 % (11.6-14.6); RBC Distribution Width SD 54.4 fl (35.1-43.9); Red Blood Count 2.89 M/mm3 (4.2-5.4); White Blood Count 9.1 K/mm3 (4.4-11.0)
--- NOTE | 2024-06-05 09:14 | CASEMGMT ---
Addendum entered by Rekha Moore 06/05/24 09:30: Patient can return without precert. Msg sent to that patient should be ready to return today. Rekha Moore DC Planning Asst. Original Note: Discharge Planning Per Hayley at , patient can return. Updates sent via [facility] with note asking if precert is needed. Awaiting response. Rekha Moore DC Planning Asst.
[2024-06-05] MEDS: 0.9% Saline Lock 10 ML Syringe IV (10:12)
[2024-06-05] MEDS: 0.9% Normal Saline 1,000 ML IV.SOLN. 1000 ML OPERA.SITE (10:13)
[2024-06-05] MEDS: PureFlow B 2K Dialysis Soln 1 BAG 6 BAG PF (10:13)
--- NOTE | 2024-06-05 11:25 | CASEMGMT ---
Social Work- SW advised that pt can return to [facility]. Pt is agreeable. Physician advised. ERIN Johnson
[2024-06-05 12:25] LABS: Anion Gap 12 (5-15); BUN 78 mg/dL (7-18); BUN/Creat Ratio 10.5 RATIO (10-20); Calcium,Total 8.9 mg/dL (8.5-10.1); Chloride 97 mmol/L (98-107); Creatinine, Serum 7.43 mg/dL (0.55-1.02); EST Glomerular Filtration Rate 6 mL/min (>60); Est Glom Filt Rate - Afr Amer 7 mL/min (>60); Estimated Creatinine Clearance 8.27 ml/min; Glucose 92 mg/dL (74-106); Potassium 5.4 mmol/L (3.5-5.1); Sodium Level 135 mmol/L (136-145)
--- NOTE | 2024-06-05 12:30 | CON.PCM_ITS ---
Assessment & Plan Assessment/Plan (1) Non-pressure chronic 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 layer exposed: PLAN: Exam performed. Dressings removed. Full-thickness dehiscence to bilateral lateral ankle incisional sites as well as residual plantar midfoot wound site. All agustin and sutures were aseptically removed from bilateral foot ankle and leg. Bilateral foot wounds were debrided down to level of subcutaneous tissue while the ankle wounds were down to 2 level of muscle. Debridements were performed excisionally with removal of all nonviable tissue using combination of pickups dissecting scissors and 7 mm dermal curette. No anesthesia due to neuropathy. Patient tolerated procedure well. Pre and postdebridement measurements documented objective section. He is hemostased obtained with light compression. Patient has bilateral foot cellulitis, continue 6 weeks Bactrim per infectious disease recommendations Continue nonweightbearing at SNF bilaterally. Follow-up in 1 week in wound care center. (2) Non-pressure chronic ulcer of other part of left foot with fat layer exposed: (3) Non-pressure chronic ulcer of left ankle with necrosis of muscle: (4) Non-pressure chronic ulcer of right ankle with necrosis of muscle: HPI Consult Data Date of Consult: 06/05/24 HPI Narrative HPI Narrative: DIONY ROCHA, is a 58 F who presents with altered mental status secondary to oral cannabis consumption. Patient is approximately 3 weeks postop from bilateral foot wound debridement and peroneal tendon transfer bilaterally. Patient has not been seen in the outpatient setting since hospital discharge due to coordination issues getting patient into the wound care center from the retirement facility. Patient denies any constitutional symptoms today and is AOx3. She notes bilateral burning foot pain that is constant but not responsive to manipulation of the wounds. No other complaints. [facility] Medical History (Updated 06/05/24 @ 12:[address] Gustavo Julian, DPNiru) Non-pressure chronic 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 layer exposed Non-pressure chronic ulcer of other part of left foot with fat layer exposed Short Achilles tendon (acquired), left ankle Short Achilles tendon (acquired), right ankle Acquired cavovarus deformity of left foot Acquired cavovarus deformity of right foot Type 2 diabetes mellitus with diabetic polyneuropathy Adult failure to thrive ESRD (end stage renal disease) on dialysis Debility Charcot's joint, right ankle and foot Charcot's joint, left ankle and foot Drowsiness Mental status, decreased Carotid artery stenosis MSSA bacteremia ESRD on hemodialysis Osteomyelitis Anemia in chronic illness Type 2 diabetes mellitus Foot osteomyelitis, left Chronic renal disease, stage 4, severely decreased glomerular filtration rate (GFR) between 15-29 mL/min/1.73 square meter Acute on chronic anemia Chronic ulcer of right foot with necrosis of bone Chronic kidney disease, stage 4 (severe) Diabetes mellitus with diabetic polyneuropathy Diabetic foot ulcers Chronic kidney disease, stage 3b Cellulitis Acute lumbar radiculopathy Essential hypertension Adult failure to thrive COVID-19 (08/28/21) Chronic ulcer of right leg with fat layer exposed Ulcer of left foot with fat layer exposed Chronic ulcer of right foot with fat layer exposed Hyperparathyroidism, secondary renal Iron deficiency anemia Bilateral edema of lower extremity Chronic foot pain Charcot's joint of right foot Diabetes Non-smoker Myocardial infarct Hypertension TIA (transient ischemic attack) Amputation foot, bilat 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 Ulcer of left foot with necrosis of muscle Ulcer of left foot with muscle involvement without evidence of necrosis Anxiety and depression Diabetic infection of left foot Delayed wound healing Non-compliance Diabetic polyneuropathy Ischemic cardiomyopathy Obesity (BMI 30.0-34.9) Acquired varus deformity of left foot Acquired varus deformity of right foot Atherosclerosis of [place] coronary artery of [place] heart without angina pectoris Hemoglobin A1c greater than 9.0% NSTEMI (non-ST elevated myocardial infarction) (09/20/18) GERD (gastroesophageal reflux disease) HLD (hyperlipidemia) Back pain, chronic RLS (restless legs syndrome) Home Medications ?Medication ?Instructions ?Recorded ?Last Taken ?Type paroxetine HCl 20 mg tablet 20 mg PO DAILY DEPRESSION 07/07/21 04/07/22 History bupropion HCl 150 mg 24 hr tablet, 150 mg PO DAILY mood 02/04/22 04/07/22 History extended release sennosides 8.6 mg-docusate sodium 2 tab PO BID PRN PRN Constipation 04/24/22 Unknown Rx 50 mg tablet (Stool #0 tabs Softener-Stimulant Laxative) ascorbic acid (vitamin C) 500 mg 500 mg PO BID supplement 05/05/22 Unknown History tablet (Vitamin C) ferrous sulfate 325 mg (65 mg 325 mg PO .three times a week 07/19/22 Unknown History iron) tablet anemia pantoprazole 40 mg tablet,delayed 40 mg PO BIDCM GERD 07/19/22 Unknown History release gabapentin 100 mg capsule 100 mg PO .COMPLEX PRN pain 11/26/23 Unknown History amlodipine 5 mg tablet 5 mg PO DAILY bp 12/16/23 Unknown History antacid extra assorted fruit 750 mg PO .every 4 hours PRN tums 12/16/23 Unknown History tablets calcitriol 0.5 mcg capsule 0.5 mcg PO .COMPLEX on dialysis 12/16/23 Unknown History calcium acetate(phosphat bind) 667 676 mg PO TID is on dialysis 12/16/23 Unknown History mg capsule folic acid 800 mcg tablet 0.8 mg PO DAILY supplement 12/16/23 Unknown History levothyroxine 25 mcg tablet 25 mcg PO DAILY thyroid 12/16/23 Unknown History nitroglycerin 0.4 mg sublingual 0.4 mg sublingual Q5M chest pain 12/16/23 Unknown History tablet (Nitrostat) aspirin 81 mg capsule 81 mg PO DAILY #30 caps 12/26/23 Unknown Rx atorvastatin 40 mg tablet 40 mg PO DAILY 03/18/24 Unknown History carvedilol 25 mg tablet 25 mg PO BID 03/18/24 Unknown History acetaminophen 325 mg tablet 650 mg (2 x 325 mg) PO Q6H PRN PRN 05/21/24 Unknown Rx Pain 1-10 Or Fever>100.7 #0 tabs arginine 7 gram-glutam 7 1 packet PO BIDCM #0 ea 05/21/24 Unknown Rx gram-CaHMB 1.5 [id number]-min oral pwd pkt (Ted (with collagen)) diphenhydramine HCl 25 mg capsule 25 mg PO Q6H PRN PRN Itching #0 05/21/24 Unknown Rx (Banophen) caps hydralazine 50 mg tablet 50 mg PO TID #0 tabs 05/21/24 Unknown Rx insulin lispro 100 unit/mL See Protocol subcut TIDAC #0 mL 05/21/24 Unknown Rx subcutaneous pen (Humalog KwikPen (U-100) Insulin) lorazepam 0.5 mg tablet 0.5 mg PO MoWeFr@1000 #0 tabs 05/21/24 Unknown Rx melatonin 3 mg tablet 3 mg PO QHS PRN PRN Insomnia #0 05/21/24 Unknown Rx tabs menthol 0.44 %-zinc oxide 20.6 % 1 applic topical BID #0 grams 05/21/24 Unknown Rx topical ointment (Calmoseptine) oxycodone 5 mg tablet 5 mg PO Q6H PRN pain 7 days #28 05/21/24 Unknown Rx tabs sucralfate 1 gram tablet 1 g PO TID@0700,1100,1600 #0 tabs 05/21/24 Unknown Rx sulfamethoxazole 800 0.5 tab PO 1200 #0 tabs 05/21/24 Unknown Rx mg-trimethoprim 160 mg tablet Lactobacillus rhamnosus GG 10 1 cap PO BID 06/04/24 Unknown History billion cell capsule (Culturelle) Allergy/AdvReac Type Severity Reaction Status Date / Time oxycodone (From OxyContin) Allergy sob Verified 06/04/24 07:41 Penicillins Allergy swelling Verified 06/04/24 07:41 in throat vancomycin Allergy Itching Verified 06/04/24 07:41 metronidazole AdvReac Nausea Verified 06/04/24 07:41 Family History Mother Diabetes CVA (cerebral vascular accident) Brother CAD (coronary artery disease) CABG X 3 Cancer testicular Diabetes Brother CAD (coronary artery disease) CABG X3 Diabetes Brother CAD (coronary artery disease) Stents Diabetes Sister CAD (coronary artery disease) CABG x 3 CVA (cerebral vascular accident) Diabetes Surgical History History of History of foot surgery History of bilateral carpal tunnel release History of rotator cuff surgery History of coronary artery stent placement (12/31/20) Social History household members: none number of children: 2 current occupational status: disabled Smoking Status: Never smoker alcohol intake: never substance use type: does not use caffeine: Yes Type: carbonated beverages Number of servings: 2 Physical Exam Narrative Vascular: Dorsalis pedis posterior tibial pulses palpable to bilateral lower extremity. Atrophic skin changes noted bilaterally. Neurologic: Light touch protective sensation absent to bilateral feet. Dermatologic: Full-thickness surgical site dehiscence to the right lateral ankle down to the level of the peroneus brevis tendon transfer site. Predebridement wound demonstrated necrosis, postdebridement wound demonstrate clean granular base with mild periwound erythema and edema. 1.5 x 5.5 x 0.2 cm predebridement, 2.0 x 6.0 x 0.8cm postdebridement. plantar right foot wound noted as well predebridement demonstrated fibrotic base postdebridement demonstrated clean granular base with decreased size from previous visit, 1.5 x 2.5 x 0.2 cm predebridement, 1.6 x 2.7 x 0.3 cm postdebridement.. Full-thickness surgical site dehiscence to the left lateral ankle down to the level of the peroneus brevis tendon transfer site. Predebridement wound demonstrated necrosis, postdebridement wound demonstrate clean granular base with mild periwound erythema and edema. 1.0 x 3.0 x 0.2 cm predebridement, 2.0 x 5.5 x 0.7cm postdebridement. Plantar left foot wound noted as well predebridement demonstrated fibrotic base postdebridement demonstrated clean granular base with decreased size from previous visit. 1.3 x 2.3 x 0.2 cm predebridement, 1.5 x 2.4 x 0.3 cm postdebridement. Musculoskeletal: Rectus alignment right ankle. Slight cavovarus alignment left ankle. Concern for possible loss of function of the peroneus brevis on the left. Const alert and oriented x3 Lab / Micro Data 06/05/24 07:15 06/05/24 07:15 Labs: Laboratory Results - last 24 hr 06/04/24 12:09: POC Glucose 104 06/04/24 12:20: S.aureus Protein A PCR POSITIVE H, MRSA (PCR) Negative 06/04/24 16:29: POC Glucose 157 H 06/04/24 22:27: POC Glucose 103 06/05/24 06:58: POC Glucose 105 06/05/24 07:15: WBC 9.1, RBC 2.89 L, Hgb 7.9 L, Hct 25.6 L, MCV 88.6, MCH 27.3, MCHC 30.9 L, RDW Std Deviation 54.4 H, RDW Coeff of Fior 16.6 H, Plt Count 314, MPV 9.7, Immature Gran % (Auto) 0.600, Neut % (Auto) 83.5 H, Lymph % (Auto) 5.5 L, [place] % (Auto) 7.8, Eos % (Auto) 2.0, Baso % (Auto) 0.6, Absolute Neuts (auto) 7.6, Absolute Lymphs (auto) 0.50 L, Nucleated RBC % 0, Sodium 135 L, Potassium 5.4 H, Chloride 97 L, Carbon Dioxide 26.0, Anion Gap 12, BUN 78 H, Creatinine 7.43 H*, Estim Creat Clear Calc 8.27, Est GFR (MDRD) Af Amer 7 L, Est GFR (MDRD) Non-Af 6 L, BUN/Creatinine Ratio 10.5, Glucose 92, Calcium 8.9 Micro: Microbiology 06/04/24 12:20 Wound - Left Foot Gram Stain - Final 06/04/24 12:20 Wound - Left Foot Wound Culture - Preliminary Staphylococcus aureus
[2024-06-05] MEDS: buPROPion (XL) 150 MG TABLET.XL PO (12:41)
[2024-06-05] MEDS: Carvedilol 25 MG Tablet PO (12:41)
[2024-06-05] MEDS: amLODIPine 5 MG Tablet PO (12:42)
[2024-06-05] MEDS: Atorvastatin Calcium 40 MG Tablet PO (12:42)
[2024-06-05] MEDS: Pantoprazole Sodium 40 MG Tablet PO ×2 (12:42→16:50)
[2024-06-05] MEDS: Lactobacillis Acidophilus 1 CAP PO (12:42)
[2024-06-05] MEDS: Folic Acid 1 MG Tablet PO (12:42)
[2024-06-05] MEDS: Smz/Tmp Ds Tablet 0.5 TABLET PO (12:43)
[2024-06-05] MEDS: Paroxetine 20 MG Tablet PO (12:43)
[2024-06-05] MEDS: Ascorbic Acid 500 MG Tablet PO (12:43)
[2024-06-05 12:54] LABS: Bedside Glucose 129 mg/dL (74-106)
--- NOTE | 2024-06-05 13:01 | TREXTCAR_ITS ---
Diet Diet Order/Speech Therapy: 06/04/24 12:01 Diet: Consistent Carb - Calorie Controlled Food consistency:: Regular Liquid Consistency:: Regular/Thin Type of Dietary Supplement:: Nepro How many daily calories?: 1800 calorie Routine Orders/Code Status Enema Type: Fleetz Enema Frequency: Daily PRN Wound(s) bilateral lower extremities: Wound Type: small incisions left lateral foot: Wound Type: dehisced surgical incision Dressing Change: betadine gauze left plantar foot: Wound Type: Neuropathic/Diabetic Foot Ulcer Dressing Change: betadine gauze right lateral foot: Wound Type: dehisced surgical incison Dressing Change: betadine gauze right plantar foot: Wound Type: Neuropathic/Diabetic Foot Ulcer Dressing Change: betadine gauze Therapies Weight Bearing: Weight bearing as tolerated Physical Therapy: Eval and Treat Occupational Therapy: Eval and Treat Problem/Diagnosis (1) Non-pressure chronic 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 layer exposed: Status: Chronic Code(s): L97.512 - Non-pressure chronic 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 layer exposed (2) Non-pressure chronic ulcer of other part of left foot with fat layer exposed: Status: Chronic Code(s): L97.522 - Non-pressure chronic ulcer of other part of left foot with fat layer exposed (3) Non-pressure chronic ulcer of left ankle with necrosis of muscle: Status: Acute Code(s): L97.323 - Non-pressure chronic ulcer of left ankle with necrosis of muscle (4) Non-pressure chronic ulcer of right ankle with necrosis of muscle: Status: Acute Code(s): L97.313 - Non-pressure chronic ulcer of right ankle with necrosis of muscle Plan #Acute encephalopathy likely due to cannabinoid toxicity * Patient states she was having chronic back pain so her daughter gave her some brownies which contained cannabis. She says she ate only 1 but subsequently became very confused and agitated so was brought to the ED. * urine tox was positive for cannabis * CT of the brain showed no acute intracranial pathology * admit to Med surg * hold off on hydration with IVF as she is on dialysis. * PT/OT consult * monitor until effect of cannabis wears off. * #ESRD * On hemodialysis Wednesdays. Consult nephrology. * #History of short Achilles tendon of both right and left ankle s/p corrective surgery for neuropathic ulcerations of both feet * Both feet wrapped in bandage. Bandages a blood soaked through. She was discharged to her [facility] facility on p.o. Bactrim for 6-week course. * Continue Bactrim. Consult podiatry and wound care. #History of anemia due to bleeding peptic ulcers * On pantoprazole. Had recent EGD during her previous admission in May 2024 which showed multiple oozing gastric ulcers which were cauterized. Her a spirin was discontinued at that time. #Type 2 diabetes mellitus with neuropathy: On Lantus. Insulin sliding scale. Accu-Cheks ACHS. #Depression with anxiety: On antidepressants #Hyperlipidemia: On statin #GERD: On PPI #History of chronic back pain: Gets episodic epidural steroid injections on outpatient basis. DVT prophylaxis; SCDs Allergies/Procedures Done in Hospital Allergies oxycodone (From OxyContin) Allergy (Verified 06/04/24 07:41) sob Penicillins Allergy (Verified 06/04/24 07:41) swelling in throat vancomycin Allergy (Verified 06/04/24 07:41) Itching metronidazole Adverse Reaction (Verified 06/04/24 07:41) Nausea Procedures: Dialysis Type of Care/Length of Stay Estimated LOS: Convalescent Care Less Than 30 days Type of Care Needed: Skilled Rehab Potential: Fair Prognosis: Fair Additional Orders/Day of Discharge Day of Discharge: 06/05/24 Discharge Plan Admission Admit Date/Time: 06/04/24 11:26 Primary Reason for Your Visit: cannabinoid toxicity Attending Provider: Rachel Okeefe Primary Care Provider: Raúl Eric Consulting Providers: Gustavo Julian; Angel Joel Instructions Patient Instructions: ED Drug Abuse, ED Marijuana Abuse Additional Instructions / Restrictions: Continue nonweightbearing bilateral feet. Recommend daily dressing changes at nursing facility Betadine wet-to-dry bilaterally with [place] bandage. Follow-up in 1 week at wound care center. Discharge Orders/Prescriptions Prescriptions: Continued paroxetine HCl 20 mg tablet 20 mg PO DAILY Patient Comments: TAKE 1 TABLET BY MOUTH EVERY DAY IN THE EVENING bupropion HCl 150 mg tablet extended release 24 hr 150 mg PO DAILY Patient Comments: TAKE 1 TABLET BY MOUTH EVERY DAY sennosides-docusate sodium [Stool Softener-Stimulant Laxat] 8.6-50 mg Tablet 2 tab PO BID PRN PRN (Reason: Constipation) Qty: 0 0RF ascorbic acid (vitamin C) [Vitamin C] 500 mg Tablet 500 mg PO BID pantoprazole 40 mg tablet,delayed release (DR/EC) 40 mg PO BIDCM ferrous sulfate 325 mg (65 mg iron) tablet 325 mg PO .three times a week Patient Comments: takes three times a week, on Tuesday, and Tuesday gabapentin 100 mg capsule 100 mg PO .COMPLEX PRN (Reason: pain) Rx Instructions: 100 mg orally 3 times a week Tuesday, Tuesday and Tuesday atorvastatin 40 mg tablet 40 mg PO DAILY carvedilol 25 mg tablet 25 mg PO BID acetaminophen 325 mg Tablet 650 mg PO Q6H PRN PRN (Reason: Pain 1-10 Or Fever>100.7) Qty: 0 0RF diphenhydramine HCl [Banophen] 25 mg Capsule 25 mg PO Q6H PRN PRN (Reason: Itching) Qty: 0 0RF melatonin 3 mg Tablet 3 mg PO QHS PRN PRN (Reason: Insomnia) Qty: 0 0RF lorazepam 0.5 mg Tablet 0.5 mg PO MoWeFr@1000 Qty: 0 0RF hydralazine 50 mg Tablet 50 mg PO TID Qty: 0 0RF menthol-zinc oxide [Calmoseptine] 0.44-20.6 % Ointment 1 applic topical BID Qty: 0 0RF Protocol: *Topical Application Instructions APPLICATION INSTRUCTIONS: BUTTOCKS Ted (with collagen) 7-7-1.5 gram Powder In Packet 1 packet PO BIDCM Qty: 0 0RF sucralfate 1 gram Tablet 1 g PO TID@0700,1100,1600 Qty: 0 0RF sulfamethoxazole-trimethoprim 800-160 mg Tablet 0.5 tab PO 1200 Qty: 0 0RF insulin lispro [Humalog KwikPen Insulin] 100 unit/mL Insulin Pen See Protocol subcut TIDAC Qty: 0 0RF Protocol: 3. Sliding Scale Insulin Med Dosing Condition: 150-189 mg/dl = 1 unit Condition: 190-229 mg/dl = 2 units Condition: 230-269 mg/dl = 3 units Condition: 270-309 mg/dl = 4 units Condition: 310-349 mg/dl = 5 units Condition: 350-399 mg/dl = 6 units Condition: 400-449 mg/dl = 7 units Condition: Greater than 449 call physician Protocol Text: Suggested for: - Patients on Total Daily Insulin Dose of 37-55 units - Obese, infected, or steroid patients MEDIUM DOSING ALGORITHIM oxycodone 5 mg tablet 5 mg PO Q6H PRN (Reason: pain) 7 Days Qty: 28 0RF calcium acetate(phosphat bind) 667 mg capsule 676 mg PO TID Patient Comments: TAKE 1 CAPSULE BY MOUTH THREE TIMES A DAY WITH FOOD folic acid 800 mcg tablet 0.8 mg PO DAILY Patient Comments: TAKE 1 TABLET BY MOUTH EVERY DAY levothyroxine 25 mcg tablet 25 mcg PO DAILY Patient Comments: TAKE 1 TABLET BY MOUTH EVERY DAY BEFORE BREAKFAST amlodipine 5 mg tablet 5 mg PO DAILY antacid extra assorted fruit tablets 750 mg PO .every 4 hours PRN (Reason: tums) calcitriol 0.5 mcg capsule 0.5 mcg PO .COMPLEX Rx Instructions: 0.5 mcg orally three times a week; nitroglycerin [Nitrostat] 0.4 mg tablet, sublingual 0.4 mg sublingual Q5M Rx Instructions: do not exceed 3 doses per episode aspirin 81 mg capsule 81 mg PO DAILY Qty: 30 1RF Culturelle 10 billion cell capsule 1 cap PO BID Referrals / Follow Up: Raúl Eric MD [Primary Care Provider] - Within 1 Week Disposition Disposition (needs filled in before D/C Order can be placed): [facility]
--- NOTE | 2024-06-05 13:10 | PCM.CONS.R ---
Assessment & Plan Assessment/Plan (1) Acute alteration in mental status: (2) Anemia: PLAN: Plan This is a 58-year-old female with past medical history significant for ESRD who currently dialyzes via tunneled hemodialysis catheter at [facility] on a Tuesday schedule followed by Dr. Flynn, admitted to the hospital after presenting with altered mental status changes. Patient missed dialysis yesterday. Patient underwent hemodialysis today on 2K bath (potassium 5.4) and tolerated fluid removal. Patient's next hemodialysis session will be tomorrow. Patient has history of anemia of chronic disease, we will monitor hemoglobin trends. She receives JORGE and iron with dialysis. Patient seen by podiatry as she has history of bilateral foot cellulitis and is to continue 6 weeks Bactrim per ID recommendation. Further orders forthcoming as hospitalization evolves, thank you for allowing us to participate in the care of Ms. Carrillo. HPI Consult Data Date of Consult: 06/05/24 HPI Narrative HPI Narrative: DIONY CARRILLO, is a 58 F who was brought to the emergency room for altered mental status changes after eating a brownie that had marijuana in it. Workup in the emergency room included CT of brain which did not show any acute process, urine tox positive for cannabinoids. Patient admitted for further evaluation and treatment. Nephrology consulted as patient has history of ESRD and for dialysis management. Patient did not go to her kidney center yesterday as she came to the emergency room instead. Patient did undergo hemodialysis today and tolerated fluid removal. Patient is alert and oriented, currently denies any complaints. Patient dialyzes at [facility] in [place] followed by Dr. Flynn. [facility] Medical History (Updated 06/05/24 @ 13:14 by Elizabeth Sanchez NP-Matt) ESRD (end stage renal disease) on dialysis Non-pressure chronic 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 layer exposed Non-pressure chronic ulcer of other part of left foot with fat layer exposed Short Achilles tendon (acquired), left ankle Short Achilles tendon (acquired), right ankle Acquired cavovarus deformity of left foot Acquired cavovarus deformity of right foot Type 2 diabetes mellitus with diabetic polyneuropathy Adult failure to thrive Debility Charcot's joint, right ankle and foot Charcot's joint, left ankle and foot Drowsiness Mental status, decreased Carotid artery stenosis MSSA bacteremia ESRD on hemodialysis Osteomyelitis Anemia in chronic illness Type 2 diabetes mellitus Foot osteomyelitis, left Chronic renal disease, stage 4, severely decreased glomerular filtration rate (GFR) between 15-29 mL/min/1.73 square meter Acute on chronic anemia Chronic ulcer of right foot with necrosis of bone Chronic kidney disease, stage 4 (severe) Diabetes mellitus with diabetic polyneuropathy Diabetic foot ulcers Chronic kidney disease, stage 3b Cellulitis Acute lumbar radiculopathy Essential hypertension Adult failure to thrive COVID-19 (08/28/21) Chronic ulcer of right leg with fat layer exposed Ulcer of left foot with fat layer exposed Chronic ulcer of right foot with fat layer exposed Hyperparathyroidism, secondary renal Iron deficiency anemia Bilateral edema of lower extremity Chronic foot pain Charcot's joint of right foot Diabetes Non-smoker Myocardial infarct Hypertension TIA (transient ischemic attack) Amputation foot, bilat 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 Ulcer of left foot with necrosis of muscle Ulcer of left foot with muscle involvement without evidence of necrosis Anxiety and depression Diabetic infection of left foot Delayed wound healing Non-compliance Diabetic polyneuropathy Ischemic cardiomyopathy Obesity (BMI 30.0-34.9) Acquired varus deformity of left foot Acquired varus deformity of right foot Atherosclerosis of [place] coronary artery of [place] heart without angina pectoris Hemoglobin A1c greater than 9.0% NSTEMI (non-ST elevated myocardial infarction) (09/20/18) GERD (gastroesophageal reflux disease) HLD (hyperlipidemia) Back pain, chronic RLS (restless legs syndrome) Home Medications ?Medication ?Instructions ?Recorded ?Last Taken ?Type paroxetine HCl 20 mg tablet 20 mg PO DAILY DEPRESSION 07/07/21 04/07/22 History bupropion HCl 150 mg 24 hr tablet, 150 mg PO DAILY mood 02/04/22 04/07/22 History extended release sennosides 8.6 mg-docusate sodium 2 tab PO BID PRN PRN Constipation 04/24/22 Unknown Rx 50 mg tablet (Stool #0 tabs Softener-Stimulant Laxative) ascorbic acid (vitamin C) 500 mg 500 mg PO BID supplement 05/05/22 Unknown History tablet (Vitamin C) ferrous sulfate 325 mg (65 mg 325 mg PO .three times a week 07/19/22 Unknown History iron) tablet anemia pantoprazole 40 mg tablet,delayed 40 mg PO BIDCM GERD 07/19/22 Unknown History release gabapentin 100 mg capsule 100 mg PO .COMPLEX PRN pain 02/17/24 Unknown History amlodipine 5 mg tablet 5 mg PO DAILY bp 12/16/23 Unknown History antacid extra assorted fruit 750 mg PO .every 4 hours PRN tums 12/16/23 Unknown History tablets calcitriol 0.5 mcg capsule 0.5 mcg PO .COMPLEX on dialysis 12/16/23 Unknown History calcium acetate(phosphat bind) 667 676 mg PO TID is on dialysis 12/16/23 Unknown History mg capsule folic acid 800 mcg tablet 0.8 mg PO DAILY supplement 12/16/23 Unknown History levothyroxine 25 mcg tablet 25 mcg PO DAILY thyroid 12/16/23 Unknown History nitroglycerin 0.4 mg sublingual 0.4 mg sublingual Q5M chest pain 12/16/23 Unknown History tablet (Nitrostat) aspirin 81 mg capsule 81 mg PO DAILY #30 caps 12/26/23 Unknown Rx atorvastatin 40 mg tablet 40 mg PO DAILY 03/18/24 Unknown History carvedilol 25 mg tablet 25 mg PO BID 03/18/24 Unknown History acetaminophen 325 mg tablet 650 mg (2 x 325 mg) PO Q6H PRN PRN 05/21/24 Unknown Rx Pain 1-10 Or Fever>100.7 #0 tabs arginine 7 gram-glutam 7 1 packet PO BIDCM #0 ea 05/21/24 Unknown Rx gram-CaHMB 1.5 [id number]-pvoqg-wi-min oral pwd pkt (Ted (with collagen)) diphenhydramine HCl 25 mg capsule 25 mg PO Q6H PRN PRN Itching #0 05/21/24 Unknown Rx (Banophen) caps hydralazine 50 mg tablet 50 mg PO TID #0 tabs 05/21/24 Unknown Rx insulin lispro 100 unit/mL See Protocol subcut TIDAC #0 mL 05/21/24 Unknown Rx subcutaneous pen (Humalog KwikPen (U-100) Insulin) lorazepam 0.5 mg tablet 0.5 mg PO MoWeFr@1000 #0 tabs 05/21/24 Unknown Rx melatonin 3 mg tablet 3 mg PO QHS PRN PRN Insomnia #0 05/21/24 Unknown Rx tabs menthol 0.44 %-zinc oxide 20.6 % 1 applic topical BID #0 grams 05/21/24 Unknown Rx topical ointment (Calmoseptine) oxycodone 5 mg tablet 5 mg PO Q6H PRN pain 7 days #28 05/21/24 Unknown Rx tabs sucralfate 1 gram tablet 1 g PO TID@0700,1100,1600 #0 tabs 05/21/24 Unknown Rx sulfamethoxazole 800 0.5 tab PO 1200 #0 tabs 05/21/24 Unknown Rx mg-trimethoprim 160 mg tablet Lactobacillus rhamnosus GG 10 1 cap PO BID 06/04/24 Unknown History billion cell capsule (Culturelle) Allergy/AdvReac Type Severity Reaction Status Date / Time oxycodone (From OxyContin) Allergy sob Verified 06/04/24 07:41 Penicillins Allergy swelling Verified 06/04/24 07:41 in throat vancomycin Allergy Itching Verified 06/04/24 07:41 metronidazole AdvReac Nausea Verified 06/04/24 07:41 Family History Mother Diabetes CVA (cerebral vascular accident) Brother CAD (coronary artery disease) CABG X 3 Cancer testicular Diabetes Brother CAD (coronary artery disease) CABG X3 Diabetes Brother CAD (coronary artery disease) Stents Diabetes Sister CAD (coronary artery disease) CABG x 3 CVA (cerebral vascular accident) Diabetes Surgical History History of History of foot surgery History of bilateral carpal tunnel release History of rotator cuff surgery History of coronary artery stent placement (12/31/20) Social History household members: none number of children: 2 current occupational status: disabled Smoking Status: Never smoker alcohol intake: never substance use type: does not use caffeine: Yes Type: carbonated beverages Number of servings: 2 ROS ROS Narrative As in HPI and past medical history Physical Exam Narrative Alert and oriented, no apparent distress S1, S2, RRR Lung sounds clear anteriorly and posteriorly. No wheezes, rhonchi or rales Abdomen soft, nontender No edema. Dressings intact to both feet Tunneled HD catheter dressing clean, dry and intact Lab / Micro Data 06/05/24 07:15 06/05/24 07:15 Labs: Laboratory Results - last 24 hr 06/04/24 12:20: S.aureus Protein A PCR POSITIVE H, MRSA (PCR) Negative 06/04/24 16:29: POC Glucose 157 H 06/04/24 22:27: POC Glucose 103 06/05/24 06:58: POC Glucose 105 06/05/24 07:15: WBC 9.1, RBC 2.89 L, Hgb 7.9 L, Hct 25.6 L, MCV 88.6, MCH 27.3, MCHC 30.9 L, RDW Std Deviation 54.4 H, RDW Coeff of Fior 16.6 H, Plt Count 314, MPV 9.7, Immature Gran % (Auto) 0.600, Neut % (Auto) 83.5 H, Lymph % (Auto) 5.5 L, [place] % (Auto) 7.8, Eos % (Auto) 2.0, Baso % (Auto) 0.6, Absolute Neuts (auto) 7.6, Absolute Lymphs (auto) 0.50 L, Nucleated RBC % 0, Sodium 135 L, Potassium 5.4 H, Chloride 97 L, Carbon Dioxide 26.0, Anion Gap 12, BUN 78 H, Creatinine 7.43 H*, Estim Creat Clear Calc 8.27, Est GFR (MDRD) Af Amer 7 L, Est GFR (MDRD) Non-Af 6 L, BUN/Creatinine Ratio 10.5, Glucose 92, Calcium 8.9 06/05/24 12:35: POC Glucose 129 H Micro: Microbiology 06/04/24 12:20 Wound - Left Foot Gram Stain - Final 06/04/24 12:20 Wound - Left Foot Wound Culture - Preliminary Staphylococcus aureus
--- NOTE | 2024-06-05 13:54 | DS.PCM_ITS ---
Providers Date of Admission: 06/04/24 Date of Discharge: 06/05/24 Primary Care Physician: Dr. 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 Routine Comment: Reason for Consult:: bilateral foot wounds 06/04/24 15:00 Consult: Podiatry Routine Consulting Provider: Gustavo Julian Reason for Consult: bilateral foot wounds EMERGENT Consult: No MD Notified: Yes Date Notified: 06/04/24 Time Notified: 15:00 Method of Notification: Text 06/04/24 16:01 Consult: Nephrology Routine Consulting Provider: Angel Joel Reason for Consult: ESRD, needs dialysis EMERGENT Consult: No MD Notified: Yes Date Notified: 06/04/24 Time Notified: 16:01 Method of Notification: Text Reason For Visit: CANNABINOID OVERDOSE Diagnosis Discharge Diagnosis (1) Acute alteration in mental status: Status: Acute Code(s): R41.82 - Altered mental status, unspecified (2) Anemia: Status: Acute Code(s): D64.9 - Anemia, unspecified Plan #Acute encephalopathy likely due to cannabinoid toxicity * Patient states she was having chronic back pain so her daughter gave her some brownies which contained cannabis. She says she ate only 1 but subsequently became very confused and agitated so was brought to the ED. * urine tox was positive for cannabis * CT of the brain showed no acute intracranial pathology * admit to Med surg * hold off on hydration with IVF as she is on dialysis. * PT/OT consult * monitor until effect of cannabis wears off. * #ESRD * On hemodialysis Wednesdays. Consult nephrology. * #History of short Achilles tendon of both right and left ankle s/p corrective surgery for neuropathic ulcerations of both feet * Both feet wrapped in bandage. Bandages a blood soaked through. She was discharged to her [facility]p facility on p.o. Bactrim for 6-week course. * Continue Bactrim. Consult podiatry and wound care. #History of anemia due to bleeding peptic ulcers * On pantoprazole. Had recent EGD during her previous admission in May 2024 which showed multiple oozing gastric ulcers which were cauterized. Her aspirin was discontinued at that time. #Type 2 diabetes mellitus with neuropathy: On Lantus. Insulin sliding scale. Accu-Cheks ACHS. #Depression with anxiety: On antidepressants #Hyperlipidemia: On statin #GERD: On PPI #History of chronic back pain: Gets episodic epidural steroid injections on outpatient basis. DVT prophylaxis; SCDs Medications at Discharge Home Medications paroxetine HCl 20 mg tablet 20 mg PO DAILY DEPRESSION 07/07/21 bupropion HCl 150 mg 24 hr tablet, extended release 150 mg PO DAILY mood 02/04/22 sennosides 8.6 mg-docusate sodium 50 mg tablet (Stool Softener-Stimulant Laxative) 2 tab PO BID PRN PRN Constipation #0 tabs 04/24/22 ascorbic acid (vitamin C) 500 mg tablet (Vitamin C) 500 mg PO BID supplement 05/05/22 ferrous sulfate 325 mg (65 mg iron) tablet 325 mg PO .three times a week anemia 07/19/22 pantoprazole 40 mg tablet,delayed release 40 mg PO BIDCM GERD 07/19/22 gabapentin 100 mg capsule 100 mg PO .COMPLEX PRN pain 11/26/23 amlodipine 5 mg tablet 5 mg PO DAILY bp 12/16/23 antacid extra assorted fruit tablets 750 mg PO .every 4 hours PRN tums 12/16/23 calcitriol 0.5 mcg capsule 0.5 mcg PO .COMPLEX on dialysis 12/16/23 calcium acetate(phosphat bind) 667 mg capsule 676 mg PO TID is on dialysis 12/16/23 folic acid 800 mcg tablet 0.8 mg PO DAILY supplement 12/16/23 levothyroxine 25 mcg tablet 25 mcg PO DAILY thyroid 12/16/23 nitroglycerin 0.4 mg sublingual tablet (Nitrostat) 0.4 mg sublingual Q5M chest pain 12/16/23 aspirin 81 mg capsule 81 mg PO DAILY #30 caps 12/26/23 atorvastatin 40 mg tablet 40 mg PO DAILY 03/18/24 carvedilol 25 mg tablet 25 mg PO BID 03/18/24 acetaminophen 325 mg tablet 650 mg (2 x 325 mg) PO Q6H PRN PRN Pain 1-10 Or Fever>100.7 #0 tabs 05/21/24 arginine 7 gram-glutam 7 gram-CaHMB 1.5 [id number]-kc-min oral pwd pkt (Ted (with collagen)) 1 packet PO BIDCM #0 ea 05/21/24 diphenhydramine HCl 25 mg capsule (Banophen) 25 mg PO Q6H PRN PRN Itching #0 caps 05/21/24 hydralazine 50 mg tablet 50 mg PO TID #0 tabs 05/21/24 insulin lispro 100 unit/mL subcutaneous pen (Humalog KwikPen (U-100) Insulin) See Protocol subcut TIDAC #0 mL 05/21/24 lorazepam 0.5 mg tablet 0.5 mg PO MoWeFr@1000 #0 tabs 05/21/24 melatonin 3 mg tablet 3 mg PO QHS PRN PRN Insomnia #0 tabs 05/21/24 menthol 0.44 %-zinc oxide 20.6 % topical ointment (Calmoseptine) 1 applic topical BID #0 grams 05/21/24 oxycodone 5 mg tablet 5 mg PO Q6H PRN pain 7 days #28 tabs 05/21/24 sucralfate 1 gram tablet 1 g PO TID@0700,1100,1600 #0 tabs 05/21/24 sulfamethoxazole 800 mg-trimethoprim 160 mg tablet 0.5 tab PO 1200 #0 tabs 05/21/24 Lactobacillus rhamnosus GG 10 billion cell capsule (Culturelle) 1 cap PO BID 06/04/24 Hospital Course Operations None Procedures None Summary of Care Provided Minutes Spent on Discharge: 55 Hospital Course: DIONY ROCHA, is a 58 F with a PMH as outlined who presents via the ED on 06/04/2024 with a complaint of altered mental status. She was brought in from her SNF after being found confused. Apparently her daughter gave her cookies with marijuana in it, and she subsequently became confused. She was therefore brought in to the ED. she is able to tell me that she was having chronic pain to her daughter gave her a brownie. She is claims she ate only 1 brownie but subsequently became confused. Patient was able to answer questions the ED but remained confused. She thought she was in hell and said she saw [place] and God and Satan in hell. Vitals in the ED were blood pressure 120/48, pulse rate of 82 respirate rate of 16 with oxygen saturation of 97% on room air. CBC showed hemoglobin of 8.6 with WBC of 10.6 and platelets of 321. Chemistry showed sodium of 135 with potassium of 4.8 and bicarb of 26 with creatinine of 6.64. Urinalysis showed 1+ bacteria. Urine tox screen was positive for cannabinoids. CT of the brain showed chronic involutional changes of the brain and old infarct involving the right posterior parietal occipital lobes as well as the right temporal lobe and old lacunar infarcts of the basal ganglia bilaterally. She was admitted to be managed for acute encephalopathy likely due to cannabinoid overdose. She was monitored overnight and actually did well. Her mentation improved. Podiatry was also consulted and she had dressing change done. She remained stable and was discharged back to her [facility]p facility on 06/05/2024. She is follow-up with her primary care doctor within 1 to 2 weeks and also to follow-up with Tommy and complete her prescribed course of p.o. Bactrim. Patient seen and examined prior to discharge. She felt well and had no complaints. She had an uneventful night. Review of systems otherwise negative. Labs and vitals reviewed. Medication reviewed and reconciled. Physical Exam Const alert, oriented x3 and no apparent distress General Appearance: cooperative and comfortable Orientation / Consciousness: awake, oriented to person, oriented to place and oriented to time HEENT normocephalic, head/scalp atraumatic, hearing grossly normal bilaterally, moist oral mucous membranes and oropharynx normal Mouth: oral and palatal mucosa normal Eyes PERRL and EOMs intact bilaterally Neck no lymphadenopathy, supple and no JVD Lymph Lymphatic: no lymphadenopathy noted and no lymphedema noted Resp normal respiratory effort, normal air movement and clear to auscultation bilaterally Cardio regular rate, regular rhythm, S1 normal heart sound, S2 normal heart sound and no murmurs GI normal to inspection, nondistended, normoactive bowel sounds, soft to palpation, non-tender and non-distended Extremity normal capillary refill, no clubbing, cyanosis or edema and no calf tenderness Extremity Narrative: both feet and ankles wrapped in bandage; dressings have been changed General Extremity: no tenderness to palpation of joints or extremities Skin no rashes or lesions noted and no wounds Skin Narrative: as under extremities. Neuro oriented x3, CN's II-XII intact bilaterally, moves all extremities and no focal motor deficits Sensorium / Orientation: awake Motor Exam: general weakness Psych Mood & Affect: flat affect Weight / BMI Weight Weight: 161 lb 8 oz Body Mass Index (BMI) 26.9 ABG / Lab / Microbiology Data 06/05/24 07:15 06/05/24 07:15 Laboratory: Laboratory Results - last 24 hr 06/04/24 12:20: S.aureus Protein A PCR POSITIVE H, MRSA (PCR) Negative 06/04/24 16:29: POC Glucose 157 H 06/04/24 22:27: POC Glucose 103 06/05/24 06:58: POC Glucose 105 06/05/24 07:15: WBC 9.1, RBC 2.89 L, Hgb 7.9 L, Hct 25.6 L, MCV 88.6, MCH 27.3, MCHC 30.9 L, RDW Std Deviation 54.4 H, RDW Coeff of Fior 16.6 H, Plt Count 314, MPV 9.7, Immature Gran % (Auto) 0.600, Neut % (Auto) 83.5 H, Lymph % (Auto) 5.5 L, [place] % (Auto) 7.8, Eos % (Auto) 2.0, Baso % (Auto) 0.6, Absolute Neuts (auto) 7.6, Absolute Lymphs (auto) 0.50 L, Nucleated RBC % 0, Sodium 135 L, Potassium 5.4 H, Chloride 97 L, Carbon Dioxide 26.0, Anion Gap 12, BUN 78 H, Creatinine 7.43 H*, Estim Creat Clear Calc 8.27, Est GFR (MDRD) Af Amer 7 L, Est GFR (MDRD) Non-Af 6 L, BUN/Creatinine Ratio 10.5, Glucose 92, Calcium 8.9 06/05/24 12:35: POC Glucose 129 H Microbiology: Microbiology 06/04/24 12:20 Wound - Left Foot Gram Stain - Final 06/04/24 12:20 Wound - Left Foot Wound Culture - Preliminary Staphylococcus aureus D/C Instructions Discharge Diet: Low fat / Low cholesterol Discharge Activity: Return to Normal Activity Weight Bearing Status: No weight bearing Call your doctor if you observe: Fever of 101 or Higher, Shortness of breath, Dizziness, Swelling in the ankles and Chest pain Meaningful Use Info Meaningful Use Meaningful Use Diagnoses (Choose all that apply): None applicable Ischemic Stroke Statin Dosing Therapy Reference: STATIN DOSE THERAPY REFERENCE: * Patients > 75 years receive moderate or high dose statin therapy. * Patients 75 years or YOUNGER should receive HIGH intensity statin dose unless contraindicated. You will be required to document reason for non-treatment if statin daily dose does not meet guidelines. HIGH DOSE STATIN THERAPY DAILY Atorvastatin > than or = to 40 mg Rosuvastatin > than or = to 20 mg Amlodipine + Atorvastatin > than or = to 2.5/40 mg Ezetimibe + Simvastatin 10/80 mg Simvastatin 80mg Discharge Plan Admission Admit Date/Time: 06/04/24 11:26 Primary Reason for Your Visit: cannabinoid toxicity Attending Provider: Rachel Okeefe Primary Care Provider: Raúl Eric Consulting Providers: Gustavo Julian; nAgel Joel Instructions Patient Instructions: ED Drug Abuse, ED Marijuana Abuse Additional Instructions / Restrictions: Continue nonweightbearing bilateral feet. Recommend daily dressing changes at nursing facility Betadine wet-to-dry bilaterally with [place] bandage. Follow-up in 1 week at wound care center. Discharge Orders/Prescriptions Prescriptions: Continued paroxetine HCl 20 mg tablet 20 mg PO DAILY Patient Comments: TAKE 1 TABLET BY MOUTH EVERY DAY IN THE EVENING bupropion HCl 150 mg tablet extended release 24 hr 150 mg PO DAILY Patient Comments: TAKE 1 TABLET BY MOUTH EVERY DAY sennosides-docusate sodium [Stool Softener-Stimulant Laxat] 8.6-50 mg Tablet 2 tab PO BID PRN PRN (Reason: Constipation) Qty: 0 0RF ascorbic acid (vitamin C) [Vitamin C] 500 mg Tablet 500 mg PO BID pantoprazole 40 mg tablet,delayed release (DR/EC) 40 mg PO BIDCM ferrous sulfate 325 mg (65 mg iron) tablet 325 mg PO .three times a week Patient Comments: takes three times a week, on Tuesday, and Tuesday gabapentin 100 mg capsule 100 mg PO .COMPLEX PRN (Reason: pain) Rx Instructions: 100 mg orally 3 times a week Tuesday, Tuesday and Tuesday atorvastatin 40 mg tablet 40 mg PO DAILY carvedilol 25 mg tablet 25 mg PO BID acetaminophen 325 mg Tablet 650 mg PO Q6H PRN PRN (Reason: Pain 1-10 Or Fever>100.7) Qty: 0 0RF diphenhydramine HCl [Banophen] 25 mg Capsule 25 mg PO Q6H PRN PRN (Reason: Itching) Qty: 0 0RF melatonin 3 mg Tablet 3 mg PO QHS PRN PRN (Reason: Insomnia) Qty: 0 0RF lorazepam 0.5 mg Tablet 0.5 mg PO MoWeFr@1000 Qty: 0 0RF hydralazine 50 mg Tablet 50 mg PO TID Qty: 0 0RF menthol-zinc oxide [Calmoseptine] 0.44-20.6 % Ointment 1 applic topical BID Qty: 0 0RF Protocol: *Topical Application Instructions APPLICATION INSTRUCTIONS: BUTTOCKS Ted (with collagen) 7-7-1.5 gram Powder In Packet 1 packet PO BIDCM Qty: 0 0RF sucralfate 1 gram Tablet 1 g PO TID@0700,1100,1600 Qty: 0 0RF sulfamethoxazole-trimethoprim 800-160 mg Tablet 0.5 tab PO 1200 Qty: 0 0RF insulin lispro [Humalog KwikPen Insulin] 100 unit/mL Insulin Pen See Protocol subcut TIDAC Qty: 0 0RF Protocol: 3. Sliding Scale Insulin Med Dosing Condition: 150-189 mg/dl = 1 unit Condition: 190-229 mg/dl = 2 units Condition: 230-269 mg/dl = 3 units Condition: 270-309 mg/dl = 4 units Condition: 310-349 mg/dl = 5 units Condition: 350-399 mg/dl = 6 units Condition: 400-449 mg/dl = 7 units Condition: Greater than 449 call physician Protocol Text: Suggested for: - Patients on Total Daily Insulin Dose of 37-55 units - Obese, infected, or steroid patients MEDIUM DOSING ALGORITHIM oxycodone 5 mg tablet 5 mg PO Q6H PRN (Reason: pain) 7 Days Qty: 28 0RF calcium acetate(phosphat bind) 667 mg capsule 676 mg PO TID Patient Comments: TAKE 1 CAPSULE BY MOUTH THREE TIMES A DAY WITH FOOD folic acid 800 mcg tablet 0.8 mg PO DAILY Patient Comments: TAKE 1 TABLET BY MOUTH EVERY DAY levothyroxine 25 mcg tablet 25 mcg PO DAILY Patient Comments: TAKE 1 TABLET BY MOUTH EVERY DAY BEFORE BREAKFAST amlodipine 5 mg tablet 5 mg PO DAILY antacid extra assorted fruit tablets 750 mg PO .every 4 hours PRN (Reason: tums) calcitriol 0.5 mcg capsule 0.5 mcg PO .COMPLEX Rx Instructions: 0.5 mcg orally three times a week; nitroglycerin [Nitrostat] 0.4 mg tablet, sublingual 0.4 mg sublingual Q5M Rx Instructions: do not exceed 3 doses per episode aspirin 81 mg capsule 81 mg PO DAILY Qty: 30 1RF Culturelle 10 billion cell capsule 1 cap PO BID Referrals / Follow Up: Raúl Eric MD [Primary Care Provider] - Within 1 Week Disposition Disposition (needs filled in before D/C Order can be placed): Residential Facility Charges/Coding Visit Charges Inpatient E&M: 40352 Disch Hosp >30min
--- NOTE | 2024-06-05 14:26 | CASEMGMT ---
Social Work Physician reports pt is ready for discharge today.? DCA advised. Disposition:?Elijah Wyman, return
--- NOTE | 2024-06-05 14:30 | CASEMGMT ---
JOHN Attempted several times to explain LOPEZ to patient with no success. Patient was either sleeping, crying, or yelling. Also attempted to call pts daughter/HC POA but there was no answer and her vm was not set up. Copy placed in patients room. Rekha Moore DC Planning Asst.
--- NOTE | 2024-06-05 15:52 | CASEMGMT ---
Discharge Planning Discharge orders, signed med list, and transport time sent to via [facility]. Physicians will transport patient by cot at 5p. Nursing and SW updated. Call placed to patients daughter but there was no answer and her vm has not been set up. Rekha Moore DC Planning Asst.
--- NOTE | 2024-06-05 16:23 | CASEMGMT ---
Social Work- due to cognitive status, pt is unable to answer questions on directives at this time. No HCPOA on chart. ERIN Johnson
[2024-06-05] MEDS: Insulin Lispro 100 UNIT/ML INSULN.PEN SC (16:29)
[2024-06-05 16:37] LABS: Bedside Glucose 224 mg/dL (74-106)
--- NOTE | 2024-06-05 19:26 | NURSING ---
per hospice manager upon enter room d/t chair alarm ringing, pt sitting on the floor. pt states she wants to stay sitting on the floor, doesn't want to go to bed nor sit in her chair. after some encouragement and reinforcement of comfort/safety, pt is agreeable to sit in chair and SBA back to the chair. chair alarm remains on and Tylenol provided per pt request
== END 2024-06-05 19:35 | disposition skilled nursing facility (03) ==
LOC: ED 11:18 → MS3 11:34
PROVIDERS: Admitting Provider Student in an Organized Health Care Education/Training Program; Emergency Provider Emergency Medicine; PCP Family Medicine; Visit Provider Student in an Organized Health Care Education/Training Program
DX: G92.8 Other toxic encephalopathy (principal); L97.313 Non-pressure chronic ulcer of right ankle with necrosis of muscle; L97.323 Non-pressure chronic ulcer of left ankle with necrosis of muscle; N18.6 End stage renal disease; I12.0 Hypertensive chronic kidney disease with stage 5 chronic kidney disease or end stage renal disease; E11.621 Type 2 diabetes mellitus with foot ulcer; L97.512 Non-pressure chronic 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 layer exposed; L97.522 Non-pressure chronic ulcer of other part of left foot with fat layer exposed; Z79.4 Long term (current) use of insulin; E11.42 Type 2 diabetes mellitus with diabetic polyneuropathy; E11.22 Type 2 diabetes mellitus with diabetic chronic kidney disease; D63.8 Anemia in other chronic diseases classified elsewhere; Z79.82 Long term (current) use of aspirin; E78.5 Hyperlipidemia, unspecified; G89.29 Other chronic pain; I25.10 Atherosclerotic heart disease of native coronary artery without angina pectoris; Z99.2 Dependence on renal dialysis; F41.8 Other specified anxiety disorders; Z79.899 Other long term (current) drug therapy; T40.725A Adverse effect of synthetic cannabinoids, initial encounter; T81.31XA Disruption of external operation (surgical) wound, not elsewhere classified, initial encounter; Y83.8 Other surgical procedures as the cause of abnormal reaction of the patient, or of later complication, without mention of misadventure at the time of the procedure
CPT/HCPCS: 11042; 36415; 70450; 80048; 80053; 80307; 81001; 82140; 82962; 85025; 87070; 87077; 87186; 87205; 87640; 90937; 93005; 96374; 99221; 99285; J7030; P9612; A4216; G0257; G0378; J2405

== ENCOUNTER 2024-06-26 09:45 | Outpatient (RCR) | payer MEDICARE, MEDICAID, SELFPAY ==
[2018-09-21 13:23] VITALS: BMI 29.3
[2024-06-19 08:16] VITALS: BP 106/49; PULSE 71; RESP 18; TEMP 36.2
[2024-06-26 10:09] VITALS: BP 152/75; PULSE 77; RESP 18; TEMP 36.6
== END 2024-07-09 23:59 | disposition skilled nursing facility (03) ==
LOC: WC 09:45
PROVIDERS: PCP Family Medicine; Referring Provider Podiatrist; Visit Provider Podiatrist
DX: E11.621 Type 2 diabetes mellitus with foot ulcer (principal); N18.6 End stage renal disease; L97.422 Non-pressure chronic ulcer of left heel and midfoot with fat layer exposed; L97.412 Non-pressure chronic ulcer of right heel and midfoot with fat layer exposed; E11.628 Type 2 diabetes mellitus with other skin complications; E11.22 Type 2 diabetes mellitus with diabetic chronic kidney disease; Z79.4 Long term (current) use of insulin; L08.9 Local infection of the skin and subcutaneous tissue, unspecified; Z99.2 Dependence on renal dialysis; M79.672 Pain in left foot; M79.671 Pain in right foot; Z79.82 Long term (current) use of aspirin; Z79.890 Hormone replacement therapy; Z79.899 Other long term (current) drug therapy
CPT/HCPCS: 11042; 11043; 11046; 99214; G0463

== ENCOUNTER 2024-06-27 08:23 | Inpatient (IN) | payer MEDICARE, MEDICAID, SELFPAY ==
[2018-09-21 13:23] VITALS: BMI 29.3
[2024-06-27] VITALS (12 sets, daily range): BP systolic 122–189; BP diastolic 58–80; PULSE 77–88; RESP 16–24; TEMP 36.3–36.9; O2SAT 93–98; BMI 28.0; BMI 27.6
--- NOTE | 2024-06-27 08:45 | RAD_ITS ---
STUDY: X-RAY - RIGHT ANKLE REASON FOR EXAM: Female, 59 years old. WOUND LATERAL FOOT TECHNIQUE: 3 view(s) of the ankle. COMPARISON: Comparison is made with prior study dated August 05, 2021. FINDINGS: Normal visualized distal tibia and fibula. Normal medial and lateral malleoli. Normal tibiotalar articulation and ankle mortise. Findings suggestive of a Charcot deformity of the midfoot. Soft tissue swelling and soft tissue ulceration overlying the lateral malleolus. Diffuse soft tissue swelling. RAD/Ankle min 3 Views IMPRESSION: Soft tissue swelling and ulceration overlying the lateral malleolus. Charcot deformity of the midfoot. Electronically Signed: Ronnie Saavedra MD at 10:04 EDT ,
--- NOTE | 2024-06-27 08:45 | RAD_ITS ---
STUDY: X-RAY - RIGHT FOOT CLINICAL: Female, 59 years old. WOUND LATERAL FOOT TECHNIQUE: 4 view(s) of the foot. COMPARISON: Comparison is made with prior study dated April 25, 2024. FINDINGS: The patient is status post amputation of the fifth metatarsal as well as the fifth toe and the cuboid bone. There is evidence of a degenerative changes at the distal tarsal metatarsal joints of the second third and fourth metatarsals. There is irregular appearance of the base of the fourth metatarsal suggestive of possible osteomyelitis. Diffuse soft tissue swelling more prominent along the lateral side. There appears to be bony destruction of the lateral proximal tarsal bones. Degenerative changes of first metatarsal-phalangeal joint. RAD/Foot min 3 Views IMPRESSION: Status post amputation of the fifth toe and fifth metatarsal as well as the navicular bones. Diffuse lateral soft tissue swelling and possible ulceration with the findings suggestive of a osteomyelitis at the distal tarsometatarsal joints. Electronically Signed: Ronnie Saavedra MD at 10:02 EDT ,
--- NOTE | 2024-06-27 08:45 | EKG12_ITS ---
Test Reason : FLANK PAIN Blood Pressure : / mmHG Vent. Rate : 080 BPM Atrial Rate : 080 BPM P-R Int : 162 ms QRS Dur : 094 ms QT Int : 412 ms P-R-T Axes : 049 -03 037 degrees QTc Int : 475 ms Normal sinus rhythm Normal ECG Confirmed by Kayden Elaine ([id number]), editorial specialist HARINI PHAM ([id number]) on 07/02/2024 10:20:01 AM Referred By: Confirmed By:Kaydne Elaine
--- NOTE | 2024-06-27 08:45 | RAD_ITS ---
STUDY: X-RAY CHEST REASON FOR EXAM: Female, 59 years old. Cough TECHNIQUE: Single AP portable view of the chest. COMPARISON: Comparison is made with prior study dated March 25, 2024. FINDINGS: A left-sided double-lumen catheter seen with the tip in the right atrium. The lungs are clear and expanded. There is no demonstrated pleural abnormality. There is moderate cardiac enlargement. Normal mediastinum and elvie. Normal visualized pulmonary arteries. There is atherosclerotic tortuosity of the aortic arch and descending thoracic aorta. There are diffuse degenerative changes of the visualized thoracic spine. Prior fusion of the lower thoracic and upper lumbar vertebrae. Normal visualized ribs, clavicles, and shoulders. There is no demonstrated abnormality of the visualized soft tissue structures of the upper abdomen. RAD/Chest 1 View (Portable) IMPRESSION: Cardiomegaly. The lungs are clear. Electronically Signed: Ronnie Saavedra MD at 10:05 EDT ,
--- NOTE | 2024-06-27 08:49 | EDS_ITS ---
HPI History of Present Illness Chief Complaint: Other, Pain/Inj Narrative Narrative: Patient is a 59-year-old female past medical history of end-stage renal disease on hemodialysis, osteomyelitis, type 2 diabetes, chronic ulcer of the right foot, neuropathy, chronic back pain, TIA, anxiety, depression who presented to the emergency department with chief complaint of bilateral feet pain, leg pain and back pain. Patient states that she has chronic back pain. She notes that just recently they approximate 3 days ago discontinued her oxycodone and noted that she had been increasing pain since then. States that she followed up with her podiatry team yesterday for her chronic wounds on her bilateral lower extremities and states that they were fearful that she may lose her feet. She states that she could not take the pain and has not slept in 2 days prompting her to come here for further evaluation management. States that she does live in a nursing facility. [facility] Medical History Non-pressure chronic ulcer of right ankle with necrosis of muscle Non-pressure chronic 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 layer exposed Non-pressure chronic ulcer of other part of left foot with fat layer exposed Non-pressure chronic ulcer of left ankle with necrosis of muscle Adverse effect of synthetic cannabinoids, initial encounter [place] coma scale score 13-15, at arrival to emergency department Acute alteration in mental status ESRD (end stage renal disease) on dialysis Short Achilles tendon (acquired), left ankle Short Achilles tendon (acquired), right ankle Acquired cavovarus deformity of left foot Acquired cavovarus deformity of right foot Type 2 diabetes mellitus with diabetic polyneuropathy Adult failure to thrive Debility Charcot's joint, right ankle and foot Charcot's joint, left ankle and foot Drowsiness Mental status, decreased Carotid artery stenosis MSSA bacteremia ESRD on hemodialysis Osteomyelitis Anemia in chronic illness Type 2 diabetes mellitus Foot osteomyelitis, left Chronic renal disease, stage 4, severely decreased glomerular filtration rate (GFR) between 15-29 mL/min/1.73 square meter Acute on chronic anemia Chronic ulcer of right foot with necrosis of bone Chronic kidney disease, stage 4 (severe) Diabetes mellitus with diabetic polyneuropathy Diabetic foot ulcers Chronic kidney disease, stage 3b Cellulitis Acute lumbar radiculopathy Essential hypertension Adult failure to thrive COVID-19 (11/19/21) Chronic ulcer of right leg with fat layer exposed Ulcer of left foot with fat layer exposed Chronic ulcer of right foot with fat layer exposed Hyperparathyroidism, secondary renal Iron deficiency anemia Bilateral edema of lower extremity Chronic foot pain Charcot's joint of right foot Diabetes Non-smoker Myocardial infarct Hypertension TIA (transient ischemic attack) Amputation foot, bilat 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 Ulcer of left foot with necrosis of muscle Ulcer of left foot with muscle involvement without evidence of necrosis Anxiety and depression Diabetic infection of left foot Delayed wound healing Non-compliance Diabetic polyneuropathy Ischemic cardiomyopathy Obesity (BMI 30.0-34.9) Acquired varus deformity of left foot Acquired varus deformity of right foot Atherosclerosis of sioux coronary artery of sioux heart without angina pecto ris Hemoglobin A1c greater than 9.0% NSTEMI (non-ST elevated myocardial infarction) (09/20/18) GERD (gastroesophageal reflux disease) HLD (hyperlipidemia) Back pain, chronic RLS (restless legs syndrome) Home Medications ?Medication ?Instructions ?Recorded ?Last Taken ?Type paroxetine HCl 20 mg tablet 20 mg PO DAILY DEPRESSION 07/07/21 04/07/22 History bupropion HCl 150 mg 24 hr tablet, 150 mg PO DAILY mood 02/04/22 04/07/22 History extended release sennosides 8.6 mg-docusate sodium 2 tab PO BID PRN PRN Constipation 04/24/22 Unknown Rx 50 mg tablet (Stool #0 tabs Softener-Stimulant Laxative) ascorbic acid (vitamin C) 500 mg 500 mg PO BID supplement 05/05/22 Unknown History tablet (Vitamin C) ferrous sulfate 325 mg (65 mg 325 mg PO .three times a week 07/19/22 Unknown History iron) tablet anemia pantoprazole 40 mg tablet,delayed 40 mg PO BIDCM GERD 07/19/22 Unknown History release gabapentin 100 mg capsule 100 mg PO .COMPLEX PRN pain 11/26/23 Unknown History amlodipine 5 mg tablet 5 mg PO DAILY bp 12/16/23 Unknown History antacid extra assorted fruit 750 mg PO .every 4 hours PRN tums 12/16/23 Unknown History tablets calcitriol 0.5 mcg capsule 0.5 mcg PO .COMPLEX on dialysis 12/16/23 Unknown History calcium acetate(phosphat bind) 667 676 mg PO TID is on dialysis 12/16/23 Unknown History mg capsule folic acid 800 mcg tablet 0.8 mg PO DAILY supplement 12/16/23 Unknown History levothyroxine 25 mcg tablet 25 mcg PO DAILY thyroid 12/16/23 Unknown History nitroglycerin 0.4 mg sublingual 0.4 mg sublingual Q5M chest pain 12/16/23 Unknown History tablet (Nitrostat) aspirin 81 mg capsule 81 mg PO DAILY #30 caps 12/26/23 Unknown Rx atorvastatin 40 mg tablet 40 mg PO DAILY 03/18/24 Unknown History carvedilol 25 mg tablet 25 mg PO BID 03/18/24 Unknown History acetaminophen 325 mg tablet 650 mg (2 x 325 mg) PO Q6H PRN PRN 05/21/24 Unknown Rx Pain 1-10 Or Fever>100.7 #0 tabs arginine 7 gram-glutam 7 1 packet PO BIDCM #0 ea 05/21/24 Unknown Rx gram-CaHMB 1.5 ewwl-chwbw-ke-min oral pwd pkt (Ted (with collagen)) diphenhydramine HCl 25 mg capsule 25 mg PO Q6H PRN PRN Itching #0 05/21/24 Unknown Rx (Banophen) caps hydralazine 50 mg tablet 50 mg PO TID #0 tabs 05/21/24 Unknown Rx insulin lispro 100 unit/mL See Protocol subcut TIDAC #0 mL 05/21/24 Unknown Rx subcutaneous pen (Humalog KwikPen (U-100) Insulin) lorazepam 0.5 mg tablet 0.5 mg PO MoWeFr@1000 #0 tabs 05/21/24 Unknown Rx melatonin 3 mg tablet 3 mg PO QHS PRN PRN Insomnia #0 05/21/24 Unknown Rx tabs menthol 0.44 %-zinc oxide 20.6 % 1 applic topical BID #0 grams 05/21/24 Unknown Rx topical ointment (Calmoseptine) oxycodone 5 mg tablet 5 mg PO Q6H PRN pain 7 days #28 05/21/24 Unknown Rx tabs sucralfate 1 gram tablet 1 g PO TID@0700,1100,1600 #0 tabs 05/21/24 Unknown Rx sulfamethoxazole 800 0.5 tab PO 1200 #0 tabs 05/21/24 Unknown Rx mg-trimethoprim 160 mg tablet Lactobacillus rhamnosus GG 10 1 cap PO BID 06/04/24 Unknown History billion cell capsule (Culturelle) Allergy/AdvReac Type Severity Reaction Status Date / Time oxycodone (From OxyContin) Allergy sob Verified 06/27/24 08:27 Penicillins Allergy swelling Verified 06/27/24 08:27 in throat vancomycin Allergy Itching Verified 06/27/24 08:27 metronidazole AdvReac Nausea Verified 06/27/24 08:27 Family History Mother Diabetes CVA (cerebral vascular accident) Brother CAD (coronary artery disease) CABG X 3 Cancer testicular Diabetes Brother CAD (coronary artery disease) CABG X3 Diabetes Brother CAD (coronary artery disease) Stents Diabetes Sister CAD (coronary artery disease) CABG x 3 CVA (cerebral vascular accident) Diabetes Surgical History History of History of foot surgery History of bilateral carpal tunnel release History of rotator cuff surgery History of coronary artery stent placement (12/31/20) Social History household members: none number of children: 2 current occupational status: disabled Smoking Status: Never smoker alcohol intake: never substance use type: does not use caffeine: Yes Type: carbonated beverages Number of servings: 2 ROS ROS ED ROS Narrative Constitutional: Denies any fevers, chills, headaches, lightness, dizziness Cardiovascular: Denies chest pain or palpitations Respiratory: Denies coughing wheezing shortness of breath Abdomen: Denies abdominal pain nausea vomit diarrhea. States that she has had normal bowel movements for self : Denies any painful urination, hematuria and polyuria, difficulty urinating Neurological: Denies any numbness, weakness Musculoskeletal: Complains of back pain, lower extremity pain as noted above Skin: Patient states that she has chronic wounds in her feet as noted above EXAM Physical Exam Narrative Exam Narrative: General: Patient was sitting in bed tearful did appear to be in pain Head: Atraumatic, normocephalic Eyes: PERRL bilateral, EOMI bilateral, no conjunctival injection noted Neck: Soft, supple, trach midline Cardiovascular: Regular rate and rhythm no murmurs gallops rubs noted Respiratory: Clear to auscultation bilaterally Abdomen: Soft, nondistended, no tenderness palpation, bowel sounds present x 4 Musculoskeletal: No tenderness to palpation midline thoracolumbar spine Extremities: +4/5 strength noted in the bilateral upper and lower extremities, DP pulses +2/4 in the bilateral lower extremities Neurological: Patient following commands knew that she was at [facility] year is 2023 Skin: Patient has chronic wounds on the left lower extremity that appear to be healing no evidence of infection at this point time on the lateral aspect of her left foot and the plantar aspect of her foot as well., Patient's right lower extremity has a wound noted that dressing was removed and she states that this was just changed yesterday has significant amount of discharge noted on this. No surrounding erythema noted. Const Vital Signs: 06/27/24 08:25 Temperature 97.3 F L Temperature Source Temporal Pulse Rate 87 Respiratory Rate 24 H Blood Pressure 188/80 H Blood Pressure Mean 116 Pulse Ox 95 Oxygen Delivery Method Room Air MDM MDM MDM Narrative Medical decision making narrative: Patient is a 59-year-old female who presented to the emergency department chief complaint of bilateral lower extremity pain as well as back pain. Patient will have a workup performed here on the differential diagnose includes but not limited to osteomyelitis of her right foot, chronic pain, cellulitis. Once workup is obtained reviewed she will be reevaluated. Patient be given 30 cc/kg bolus of IV fluids as well as morphine Zofran. Discharge Plan Triage Chief Complaint: Other, Pain/Inj ED Provider: Dick Vaughn Dx/Rx/DC Orders Prescriptions: No Action paroxetine HCl 20 mg tablet 20 mg PO DAILY Patient Comments: TAKE 1 TABLET BY MOUTH EVERY DAY IN THE EVENING bupropion HCl 150 mg tablet extended release 24 hr 150 mg PO DAILY Patient Comments: TAKE 1 TABLET BY MOUTH EVERY DAY sennosides-docusate sodium [Stool Softener-Stimulant Laxat] 8.6-50 mg Tablet 2 tab PO BID PRN PRN (Reason: Constipation) Qty: 0 0RF ascorbic acid (vitamin C) [Vitamin C] 500 mg Tablet 500 mg PO BID pantoprazole 40 mg tablet,delayed release (DR/EC) 40 mg PO BIDCM ferrous sulfate 325 mg (65 mg iron) tablet 325 mg PO .three times a week Patient Comments: takes three times a week, on Tuesday, and Tuesday gabapentin 100 mg capsule 100 mg PO .COMPLEX PRN (Reason: pain) Rx Instructions: 100 mg orally 3 times a week Tuesday, Tuesday and Tuesday atorvastatin 40 mg tablet 40 mg PO DAILY carvedilol 25 mg tablet 25 mg PO BID acetaminophen 325 mg Tablet 650 mg PO Q6H PRN PRN (Reason: Pain 1-10 Or Fever>100.7) Qty: 0 0RF diphenhydramine HCl [Banophen] 25 mg Capsule 25 mg PO Q6H PRN PRN (Reason: Itching) Qty: 0 0RF melatonin 3 mg Tablet 3 mg PO QHS PRN PRN (Reason: Insomnia) Qty: 0 0RF lorazepam 0.5 mg Tablet 0.5 mg PO MoWeFr@1000 Qty: 0 0RF hydralazine 50 mg Tablet 50 mg PO TID Qty: 0 0RF menthol-zinc oxide [Calmoseptine] 0.44-20.6 % Ointment 1 applic topical BID Qty: 0 0RF Protocol: *Topical Application Instructions APPLICATION INSTRUCTIONS: BUTTOCKS Ted (with collagen) 7-7-1.5 gram Powder In Packet 1 packet PO BIDCM Qty: 0 0RF sucralfate 1 gram Tablet 1 g PO TID@0700,1100,1600 Qty: 0 0RF sulfamethoxazole-trimethoprim 800-160 mg Tablet 0.5 tab PO 1200 Qty: 0 0RF insulin lispro [Humalog KwikPen Insulin] 100 unit/mL Insulin Pen See Protocol subcut TIDAC Qty: 0 0RF Protocol: 3. Sliding Scale Insulin Med Dosing Condition: 150-189 mg/dl = 1 unit Condition: 190-229 mg/dl = 2 units Condition: 230-269 mg/dl = 3 units Condition: 270-309 mg/dl = 4 units Condition: 310-349 mg/dl = 5 units Condition: 350-399 mg/dl = 6 units Condition: 400-449 mg/dl = 7 units Condition: Greater than 449 call physician Protocol Text: Suggested for: - Patients on Total Daily Insulin Dose of 37-55 units - Obese, infected, or steroid patients MEDIUM DOSING ALGORITHIM oxycodone 5 mg tablet 5 mg PO Q6H PRN (Reason: pain) 7 Days Qty: 28 0RF calcium acetate(phosphat bind) 667 mg capsule 676 mg PO TID Patient Comments: TAKE 1 CAPSULE BY MOUTH THREE TIMES A DAY WITH FOOD folic acid 800 mcg tablet 0.8 mg PO DAILY Patient Comments: TAKE 1 TABLET BY MOUTH EVERY DAY levothyroxine 25 mcg tablet 25 mcg PO DAILY Patient Comments: TAKE 1 TABLET BY MOUTH EVERY DAY BEFORE BREAKFAST amlodipine 5 mg tablet 5 mg PO DAILY antacid extra assorted fruit tablets 750 mg PO .every 4 hours PRN (Reason: tums) calcitriol 0.5 mcg capsule 0.5 mcg PO .COMPLEX Rx Instructions: 0.5 mcg orally three times a week; nitroglycerin [Nitrostat] 0.4 mg tablet, sublingual 0.4 mg sublingual Q5M Rx Instructions: do not exceed 3 doses per episode aspirin 81 mg capsule 81 mg PO DAILY Qty: 30 1RF Culturelle 10 billion cell capsule 1 cap PO BID Primary Care Provider: Raúl Eric Referrals: Raúl Eric MD [Primary Care Provider] - Print Language: Spanish
[2024-06-27] MEDS: Morphine 4 MG/ML Syringe IV (09:19)
[2024-06-27] MEDS: Ondansetron 4 MG/2 ML Vial IV (09:19)
[2024-06-27] MEDS: 0.9% Normal Saline (1000mL) 1,000 ML 999 ML IV ×3 (09:24→15:01)
[2024-06-27 09:26] LABS: Absolute Lymphocyte Count 0.68 X10^3/uL (0.83-4.51); Absolute Neutrophil Count 4.6 X10^3/uL (2.0-7.7); Basophil# 0.04 X10^3/uL; Basophil% 0.7 % (0-1); Eosinophils% 3.3 % (0-5); Hematocrit 28.8 % (37-47); Hemoglobin 8.8 g/dL (12.0-15.0); Lymphocyte # 0.68 X10^3/ul (0.83-4.51); Lymphocyte % 11.3 % (19-41); Mean Corp Hgb Conc 30.6 g/dL (32-36); Mean Corpuscular Hgb 27.9 pg (27.0-32.0); Mean Corpuscular Volume 91.4 fL (81-99); Mean Platelet Vol. 9.2 fl (6.2-12.0); Monocyte% 8.3 % (0-10); NRBC Flagged by Analyzer 0 % (0-5); Neutrophil # 4.57 X10^3/uL (2.7-7.7); Neutrophil % 76.1 % (47-70); POSITIVE MORPHOLOGY YES; Platelet Count 281 K/mm3 (150-450); RBC Distribution Width CV 21.1 % (11.6-14.6); RBC Distribution Width SD 68.1 fl (35.1-43.9); Red Blood Count 3.15 M/mm3 (4.2-5.4)
[2024-06-27 09:27] LABS: Differential Indicated SCAN CRITERIA MET
[2024-06-27 09:40] LABS: ALB/GLOB Ratio 0.5 RATIO (0.9-2.4); AST(SGOT) 22 U/L (15-37); Alanine Aminotransfer ALT/SGPT 18 U/L (13-56); Albumin, Serum 2.7 g/dL (3.2-5.0); Alkaline Phosphatase 184 U/L (45-117); Anion Gap 11 (5-15); BUN 29 mg/dL (7-18); BUN/Creat Ratio 6.9 RATIO (10-20); Calcium,Total 8.9 mg/dL (8.5-10.1); Chloride 100 mmol/L (98-107); Creatinine, Serum 4.19 mg/dL (0.55-1.02); EST Glomerular Filtration Rate 12 mL/min (>60); Est Glom Filt Rate - Afr Amer 14 mL/min (>60); Estimated Creatinine Clearance 14.79 ml/min; Globulin 5.2 g/dL (2.2-4.2); Glucose 73 mg/dL (74-106); Potassium 4.4 mmol/L (3.5-5.1); Protein, Total 7.9 g/dL (6.4-8.2); Sodium Level 138 mmol/L (136-145)
[2024-06-27 09:45] LABS: Lactic Acid 0.8 mmol/L (0.4-1.9)
[2024-06-27 10:01] LABS: Anisocytosis 2+
--- NOTE | 2024-06-27 10:16 | HP.PCM_ITS ---
[facility] - General General Date of Admission: 06/27/24 Date of Service: 06/27/24 Chief Complaint: bilateral foot pain, leg pain and back pain HPI Narrative DIONY ROCHA, is a 59 F with a PMH as outlined who presents via the ED on 06/27/2024 with a complaint of bilateral feet pain, back pain and leg pain. She does have a history of chronic right diabetic foot ulcer and osteomyelitis. She says her oxycodone was discontinued 3 days ago, and her pain had been poorly controlled since then. She denied any fever, chills, nausea, vomiting or any other symptoms. She did admit to increased discharge from her right foot ulcer. She had been seen in the wound care center the day before admission, and says the wound was dressed then, but it was still having increased discharge. Review of systems is otherwise negative. She could not say why her pain meds were discontinued. She said she was allergic to hydrocodone, but had no reaction to oxycodone. Vitals in the ED were BP of 189/71, MA of 84, RR of 20 and temp of 98F. She was saturating at 97% on room air. CBC showed hb of 8.8, wbc of 6, platelets of 281. Chemistry showed sodium of 138, potassium of 4.4, Cr of 4.19. Foot xray showed diffuse lateral soft tissue swelling of the right foot with finding suggestive of osteomyelitis at the distal tarsometatarsal joints. CXR showed cardiomegaly, with no acute cardiopulmonary pathology. She is being admitted to be managed for intractable foot pain likely due to right foot osteomyelitis. [facility] Medical History Non-pressure chronic ulcer of right ankle with necrosis of muscle Non-pressure chronic 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 layer exposed Non-pressure chronic ulcer of other part of left foot with fat layer exposed Non-pressure chronic ulcer of left ankle with necrosis of muscle Adverse effect of synthetic cannabinoids, initial encounter Avery coma scale score 13-15, at arrival to emergency department Acute alteration in mental status ESRD (end stage renal disease) on dialysis Short Achilles tendon (acquired), left ankle Short Achilles tendon (acquired), right ankle Acquired cavovarus deformity of left foot Acquired cavovarus deformity of right foot Type 2 diabetes mellitus with diabetic polyneuropathy Adult failure to thrive Debility Charcot's joint, right ankle and foot Charcot's joint, left ankle and foot Drowsiness Mental status, decreased Carotid artery stenosis MSSA bacteremia ESRD on hemodialysis Osteomyelitis Anemia in chronic illness Type 2 diabetes mellitus Foot osteomyelitis, left Chronic renal disease, stage 4, severely decreased glomerular filtration rate (GFR) between 15-29 mL/min/1.73 square meter Acute on chronic anemia Chronic ulcer of right foot with necrosis of bone Chronic kidney disease, stage 4 (severe) Diabetes mellitus with diabetic polyneuropathy Diabetic foot ulcers Chronic kidney disease, stage 3b Cellulitis Acute lumbar radiculopathy Essential hypertension Adult failure to thrive COVID-19 (08/28/21) Chronic ulcer of right leg with fat layer exposed Ulcer of left foot with fat layer exposed Chronic ulcer of right foot with fat layer exposed Hyperparathyroidism, secondary renal Iron deficiency anemia Bilateral edema of lower extremity Chronic foot pain Charcot's joint of right foot Diabetes Non-smoker Myocardial infarct Hypertension TIA (transient ischemic attack) Amputation foot, bilat 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 Ulcer of left foot with necrosis of muscle Ulcer of left foot with muscle involvement without evidence of necrosis Anxiety and depression Diabetic infection of left foot Delayed wound healing Non-compliance Diabetic polyneuropathy Ischemic cardiomyopathy Obesity (BMI 30.0-34.9) Acquired varus deformity of left foot Acquired varus deformity of right foot Atherosclerosis of [place] coronary artery of [place] heart without angina pectoris Hemoglobin A1c greater than 9.0% NSTEMI (non-ST elevated myocardial infarction) (09/20/18) GERD (gastroesophageal reflux disease) HLD (hyperlipidemia) Back pain, chronic RLS (restless legs syndrome) Home Medications ?Medication ?Instructions ?Recorded ?Last Taken ?Type paroxetine HCl 20 mg tablet 20 mg PO DAILY DEPRESSION 07/07/21 04/07/22 History bupropion HCl 150 mg 24 hr tablet, 150 mg PO DAILY mood 02/04/22 04/07/22 History extended release sennosides 8.6 mg-docusate sodium 2 tab PO BID PRN PRN Constipation 04/24/22 Unknown Rx 50 mg tablet (Stool #0 tabs Softener-Stimulant Laxative) ascorbic acid (vitamin C) 500 mg 500 mg PO BID supplement 05/05/22 Unknown History tablet (Vitamin C) ferrous sulfate 325 mg (65 mg 325 mg PO .three times a week 07/19/22 Unknown History iron) tablet anemia pantoprazole 40 mg tablet,delayed 40 mg PO BIDCM GERD 07/19/22 Unknown History release gabapentin 100 mg capsule 100 mg PO .COMPLEX PRN pain 11/26/23 Unknown History amlodipine 5 mg tablet 5 mg PO DAILY bp 12/16/23 Unknown History calcitriol 0.5 mcg capsule 0.5 mcg PO .COMPLEX on dialysis 12/16/23 Unknown History calcium acetate(phosphat bind) 667 676 mg PO TID is on dialysis 12/16/23 Unknown History mg capsule folic acid 800 mcg tablet 0.8 mg PO DAILY supplement 12/16/23 Unknown History levothyroxine 25 mcg tablet 25 mcg PO DAILY thyroid 12/16/23 Unknown History nitroglycerin 0.4 mg sublingual 0.4 mg sublingual Q5M chest pain 12/16/23 Unknown History tablet (Nitrostat) aspirin 81 mg capsule 81 mg PO DAILY blood thinner #30 12/26/23 Unknown Rx caps atorvastatin 40 mg tablet 40 mg PO DAILY cholesterol 03/18/24 06/26/24 History carvedilol 25 mg tablet 25 mg PO BID blood pressure 03/18/24 Unknown History acetaminophen 325 mg tablet 650 mg (2 x 325 mg) PO Q6H PRN PRN 05/21/24 Unknown Rx Pain 1-10 Or Fever>100.7 #0 tabs diphenhydramine HCl 25 mg capsule 25 mg PO Q6H PRN PRN Itching #0 05/21/24 Unknown Rx (Banophen) caps hydralazine 50 mg tablet 50 mg PO TID bp #0 tabs 05/21/24 Unknown Rx insulin lispro 100 unit/mL See Protocol subcut TIDAC blood 05/21/24 Unknown Rx subcutaneous pen (Humalog KwikPen sugar #0 mL (U-100) Insulin) lorazepam 0.5 mg tablet 0.5 mg PO MoWeFr@1000 #0 tabs 05/21/24 Unknown Rx melatonin 3 mg tablet 3 mg PO QHS PRN PRN Insomnia #0 05/21/24 Unknown Rx tabs menthol 0.44 %-zinc oxide 20.6 % 1 applic topical BID skin care #0 05/21/24 Unknown Rx topical ointment (Calmoseptine) grams sucralfate 1 gram tablet 1 g PO TID@0700,1100,1600 05/21/24 Unknown Rx indigestion #0 tabs Lactobacillus rhamnosus GG 10 1 cap PO BID probiotic 06/04/24 Unknown History billion cell capsule (Culturelle) oxycodone 5 mg tablet 5 mg PO Q4H PRN pain 06/27/24 Unknown History Allergy/AdvReac Type Severity Reaction Status Date / Time oxycodone (From OxyContin) Allergy sob Verified 06/27/24 08:27 Penicillins Allergy swelling Verified 06/27/24 08:27 in throat vancomycin Allergy Itching Verified 06/27/24 08:27 metronidazole AdvReac Nausea Verified 06/27/24 08:27 Family History Mother Diabetes CVA (cerebral vascular accident) Brother CAD (coronary artery disease) CABG X 3 Cancer testicular Diabetes Brother CAD (coronary artery disease) CABG X3 Diabetes Brother CAD (coronary artery disease) Stents Diabetes Sister CAD (coronary artery disease) CABG x 3 CVA (cerebral vascular accident) Diabetes Surgical History History of History of foot surgery History of bilateral carpal tunnel release History of rotator cuff surgery History of coronary artery stent placement (12/31/20) Social History household members: none number of children: 2 current occupational status: disabled Smoking Status: Never smoker alcohol intake: never substance use type: does not use caffeine: Yes Type: carbonated beverages Number of servings: 2 ROS Constitutional Constitutional: Reports fatigue, malaise and weakness; Denies anorexia, chills or fever(s) Eyes Eyes: Denies change in vision ENT HEENT: Denies dysphagia or headache(s) Cardiovascular Cardiovascular: Denies chest pain, edema, orthopnea, palpitations, paroxysmal nocturnal dyspnea or syncope Respiratory/Chest Respiratory/Chest: Denies cough, shortness of breath at rest or shortness of breath with exertion Gastrointestinal Gastrointestinal: Denies abdominal pain, diarrhea, nausea or vomiting Genitourinary Genitourinary: Denies dysuria or nocturia Musculoskeletal Musculoskeletal: Reports back pain and joint pain; Denies joint stiffness, joint swelling, muscle weakness or neck pain Integumentary Integumentary: Denies dry skin Neurologic Neurologic: Reports weakness; Denies confusion, dizziness, focal weakness, headache(s), lack of coordination, numbness or seizures Psychiatric Psychiatric: Denies anxiety Vital Signs Vital Signs Vital Signs: 06/27/24 08:25 06/27/24 09:08 06/27/24 09:08 Temperature 97.3 F L Temperature Source Temporal Pulse Rate 87 Respiratory Rate 24 H Respiratory Effort Normal Blood Pressure 188/80 H Blood Pressure Mean 116 Pulse Ox 95 Oxygen Delivery Method Room Air Room Air 06/27/24 09:22 Temperature 98 F Temperature Source Oral Pulse Rate 84 Respiratory Rate 20 H Respiratory Effort Blood Pressure 189/71 H Blood Pressure Mean 110 Pulse Ox 97 Oxygen Delivery Method Room Air Weight Weight: 168 lb 10.458 oz Body Mass Index (BMI) 28.0 Physical Exam Const alert, oriented x3 and no apparent distress Constitutional Narrative: frail, weak General Appearance: cooperative HEENT normocephalic, head/scalp atraumatic and moist oral mucous membranes Eyes PERRL and EOMs intact bilaterally Neck no lymphadenopathy and supple Lymph Lymphatic: no lymphadenopathy noted Resp normal respiratory effort, normal air movement and clear to auscultation bilaterally Cardio regular rate, regular rhythm, S1 normal heart sound, S2 normal heart sound and no murmurs GI normal to inspection, nondistended, normoactive bowel sounds, soft to palpation, non-tender and non-distended Extremity Extremity Narrative: has ulcers on both ankles, in the lateral malleolar region. Ulcer on right ankle is erythematous, oozing some pus, tender to touch, extends from above lateral malleolus to side of right foot. Warm to touch. Ulcer on left ankle is smaller, with no significant erythema of left foot, or differential warmth. NO tenderness Skin Skin Narrative: as under extremities Neuro CN's II-XII intact bilaterally, no focal motor deficits, no sensory deficits noted and deep tendon reflexes 2+ bilaterally Motor Exam: general weakness Psych thought process normal and cooperative Appearance: appropriate Mood & Affect: flat affect Results Lab / Micro Data 06/27/24 09:15 06/27/24 09:15 Labs: Laboratory Results - last 24 hr 06/27/24 09:15: WBC 6.0, RBC 3.15 L, Hgb 8.8 L, Hct 28.8 L, MCV 91.4, MCH 27.9, MCHC 30.6 L, RDW Std Deviation 68.1 H, RDW Coeff of Fior 21.1 H, Plt Count 281, MPV 9.2, Immature Gran % (Auto) 0.300, Neut % (Auto) 76.1 H, Lymph % (Auto) 11.3 L, [place] % (Auto) 8.3, Eos % (Auto) 3.3, Baso % (Auto) 0.7, Absolute Neuts (auto) 4.6, Absolute Lymphs (auto) 0.68 L, Nucleated RBC % 0, Anisocytosis 2+, Sodium 138, Potassium 4.4, Chloride 100, Carbon Dioxide 27.0, Anion Gap 11, BUN 29 H, C reatinine 4.19 H, Estim Creat Clear Calc 14.79, Est GFR (MDRD) Af Amer 14 L, Est GFR (MDRD) Non-Af 12 L, BUN/Creatinine Ratio 6.9 L, Glucose 73 L, Lactic Acid 0.8, Calcium 8.9, Total Bilirubin 0.40, AST 22, ALT 18, Alkaline Phosphatase 184 H, Total Protein 7.9, Albumin 2.7 L, Globulin 5.2 H, Albumin/Globulin Ratio 0.5 L Imaging Radiology Impression Ankle X-Ray 06/27/24 08:45 IMPRESSION: Soft tissue swelling and ulceration overlying the lateral malleolus. Charcot deformity of the midfoot. Electronically Signed: Ronnie Saavedra MD at 10:04 EDT , Chest X-Ray 06/27/24 08:45 IMPRESSION: Cardiomegaly. The lungs are clear. Electronically Signed: Ronnie Saavedra MD at 10:05 EDT , Foot X-Ray 06/27/24 08:45 IMPRESSION: Status post amputation of the fifth toe and fifth metatarsal as well as the navicular bones. Diffuse lateral soft tissue swelling and possible ulceration with the findings suggestive of a osteomyelitis at the distal tarsometatarsal joints. Electronically Signed: Ronnie Saavedra MD at 10:02 EDT , Assessment & Plan Assessment/Plan (1) Diabetic infection of right foot: (2) ESRD (end stage renal disease) on dialysis: (3) Debility: PLAN: Plan #Intractable back pain * Patient does have chronic back pain. She states her oxycodone was stopped a couple of days ago in her group home. She is not sure why. She says she is allergic to OxyContin but no oxycodone and is able to take the short acting oxycodone. * She would like her medications restarted. * P.o. Tylenol, p.o. oxycodone and IV morphine as needed for pain * PT OT on board. Fall precautions. * #Right lower extremity diabetic foot cellulitis, concern of osteomyelitis * She did have recent corrective surgery for neuropathic ulcerations of both feet due to short Achilles tendon of both right and left ankles. * She says she went to the wound care yesterday and it was dressed. She is still however having increased discharge from the foot. Is also erythematous and tender. She has a similar ulcer on the left foot but is not as erythematous and tender discharge in the past. * X-ray of the right foot showed diffuse lateral soft tissue swelling and possible ulceration suggestive of osteomyelitis at the distal tarsometatarsal joint. * Per ID, to start on IV linezolid and meropenem in light of her allergy to penicillins and vancomycin. * ID consulted. Podiatry also consulted. * Blood cultures and wound cultures ordered * ID ordered left lower extremity CT which showed findings suggestive of a Charcot deformity of the foot with soft tissue swelling and 3 focal areas of fluid collection with no evidence of necrotizing fasciitis. * Await podiatry evaluation. * #ESRD: On dialysis Wednesdays and Fridays. Nephrology consulted. #History of anemia due to bleeding peptic ulcers: On pantoprazole. #Type 2 diabetes mellitus with neuropathy: On Lantus. Insulin sliding scale. Accu-Cheks ACHS. #Depression with anxiety: Continue antidepressants #Hyperlipidemia: On statin #GERD: On PPI DVT prophylaxis: SCDs. CODE STATUS: Full code * Patient counseled extensively about different types of CODE STATUS including full code, DNR CCA and DNR CCA. Patient elects to be full code. Total zbem-[id number]-xtcg time 17 minutes. Charges/Coding Visit Charges Inpatient E&M: 46297 Init Hosp L3 Procedures Hospitalists Procedures: 74394 Advncd Care Plan 30 Min
--- NOTE | 2024-06-27 10:20 | NURSING ---
DR BILL BRAVO
--- NOTE | 2024-06-27 10:26 | NURSING ---
MED SURG KORAM RT FOOT OSTEOMYELITIS
[2024-06-27] MEDS: Linezolid 600 MG 600 MG/300 ML BAG 200 MG IV ×2 (10:27→22:40)
[2024-06-27 10:32] LABS: International Normalized Ratio 1.2; Partial Thromboplast Time 45.6 Seconds (24.1-36.2); Prothrombin Time (Protime)PT. 15.6 SECONDS (11.7-14.9)
[2024-06-27 10:43] LABS: Color, Urine Yellow (Yellow); Glucose, Dipstick Normal (Normal); Ketone-Dipstick Negative (Negative); Leukocyte Esterase-Dipstick Negative /ul (Negative); Mucous, Urine 0 SEEN /hpf (<or=2+); Nitrite-Dipstick Negative (Negative); Occult Blood-Urine 10 /ul (Negative); Protein-Dipstick 100 mg/dl (Negative); Urine Bilirubin Dipstick Negative (Negative); Urine Clarity Clear (Clear); Urine Urobilinogen Normal (Normal)
[2024-06-27 11:01] LABS: Red Blood Cells-Urine 0-5 SEEN /hpf (0-5)
[2024-06-27 11:02] LABS: Bacteria 1+ /hpf (None Seen); Squamous Epithelial Cells - UA 0-5 SEEN /hpf (5-10); White Blood Cells 0-5 SEEN /hpf (0-5)
--- NOTE | 2024-06-27 12:50 | CT_ITS ---
CT RIGHT LOWER EXTREMITY WITH 3-D IMAGING CLINICAL INDICATION: concern for necrotizing fasciitis TECHNIQUE: Axial CT images of the RIGHT lower extremity was performed without IV contrast material. Coronal and sagittal reformats were provided. The protocol utilizes one or more of the following dose reduction techniques: automated exposure control, adjustment of mA and/or kV according to patient size,and/or use of iterative reconstruction technique. RADIATION DOSAGE (If Supplied By Facility): CTDIvol = ( 15.35 ) mGy, DLP = ( 595.54 ) mGycm COMPARISON: No relevant prior comparison study available FINDINGS: Bones: There is evidence of Charcot''s deformity of the midfoot. Abnormal bony density (Charcot deformity. Soft Tissues: There is evidence of soft tissue swelling in the mid and posterior aspect of the foot with the 3 tiny fluid collections most likely representing effusion. The largest measures 2.8 cm x 1 cm. This is seen along the talocalcaneal joint as well as along the plantar surface of the foot. Status post amputation of the fifth metatarsal as well as the fifth toe and cuboid bone. No evidence of plantar fasciitis at this time. CT/Extremity Lower WITH Contrast IMPRESSION: Findings suggestive of a Charcot deformity of the foot with soft tissue swelling and 3 focal areas of the fluid collection. No evidence of a necrotizing fasciitis. Electronically Signed: Ronnie Saavedra MD at 13:54 EDT ,
[2024-06-27] MEDS: Meropenem 500 MG in 0.9% Normal Saline (50mL MB+) 50 ML 100 MG IV (14:42)
[2024-06-27] MEDS: oxyCODONE 5 MG Tablet PO (14:46)
[2024-06-27] MEDS: Heparin Injection (Vial) 5,000 UNIT/ML VIAL 5000 UNIT SC ×2 (14:47→22:39)
--- NOTE | 2024-06-27 15:27 | CON.PCM.ID_ITS ---
Assessment & Plan Assessment/Plan (1) ESRD (end stage renal disease) on dialysis: (2) Diabetic infection of right foot: PLAN: With severe pain, ordered CT stat of R foot and ankle. Wound cx and bcx pending. CT shows abscesses. Podiatry consulted. Will cover with linezolid/jonel for now given allergy and prior cx history. Will follow, thank you, d/w primary team HPI Consult Data Date of Consult: 06/27/24 HPI Narrative Reason for Consultation: foot infection HPI Narrative: DIONY ROCHA, is a 59 F with ESRD, DM neuropathy, recurrent osteo, presented with acute worsening of R foot with severe pain, redness, swelling, chills. Came to ED, admitted on cefepime. Full ROS performed and neg except as noted above. [facility] Medical History Non-pressure chronic ulcer of right ankle with necrosis of muscle Non-pressure chronic 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 layer exposed Non-pressure chronic ulcer of other part of left foot with fat layer exposed Non-pressure chronic ulcer of left ankle with necrosis of muscle Adverse effect of synthetic cannabinoids, initial encounter [place] coma scale score 13-15, at arrival to emergency department Acute alteration in mental status ESRD (end stage renal disease) on dialysis Short Achilles tendon (acquired), left ankle Short Achilles tendon (acquired), right ankle Acquired cavovarus deformity of left foot Acquired cavovarus deformity of right foot Type 2 diabetes mellitus with diabetic polyneuropathy Adult failure to thrive Debility Charcot's joint, right ankle and foot Charcot's joint, left ankle and foot Drowsiness Mental status, decreased Carotid artery stenosis MSSA bacteremia ESRD on hemodialysis Osteomyelitis Anemia in chronic illness Type 2 diabetes mellitus Foot osteomyelitis, left Chronic renal disease, stage 4, severely decreased glomerular filtration rate (GFR) between 15-29 mL/min/1.73 square meter Acute on chronic anemia Chronic ulcer of right foot with necrosis of bone Chronic kidney disease, stage 4 (severe) Diabetes mellitus with diabetic polyneuropathy Diabetic foot ulcers Chronic kidney disease, stage 3b Cellulitis Acute lumbar radiculopathy Essential hypertension Adult failure to thrive COVID-19 (08/28/21) Chronic ulcer of right leg with fat layer exposed Ulcer of left foot with fat layer exposed Chronic ulcer of right foot with fat layer exposed Hyperparathyroidism, secondary renal Iron deficiency anemia Bilateral edema of lower extremity Chronic foot pain Charcot's joint of right foot Diabetes Non-smoker Myocardial infarct Hypertension TIA (transient ischemic attack) Amputation foot, bilat 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 Ulcer of left foot with necrosis of muscle Ulcer of left foot with muscle involvement without evidence of necrosis Anxiety and depression Diabetic infection of left foot Delayed wound healing Non-compliance Diabetic polyneuropathy Ischemic cardiomyopathy Obesity (BMI 30.0-34.9) Acquired varus deformity of left foot Acquired varus deformity of right foot Atherosclerosis of [place] coronary artery of [place] heart without angina pectoris Hemoglobin A1c greater than 9.0% NSTEMI (non-ST elevated myocardial infarction) (09/20/18) GERD (gastroesophageal reflux disease) HLD (hyperlipidemia) Back pain, chronic RLS (restless legs syndrome) Home Medications ?Medication ?Instructions ?Recorded ?Last Taken ?Type paroxetine HCl 20 mg tablet 20 mg PO DAILY DEPRESSION 07/07/21 04/07/22 History bupropion HCl 150 mg 24 hr tablet, 150 mg PO DAILY mood 02/04/22 04/07/22 History extended release sennosides 8.6 mg-docusate sodium 2 tab PO BID PRN PRN Constipation 04/24/22 Unknown Rx 50 mg tablet (Stool #0 tabs Softener-Stimulant Laxative) ascorbic acid (vitamin C) 500 mg 500 mg PO BID supplement 05/05/22 Unknown History tablet (Vitamin C) ferrous sulfate 325 mg (65 mg 325 mg PO .three times a week 07/19/22 Unknown History iron) tablet anemia pantoprazole 40 mg tablet,delayed 40 mg PO BIDCM GERD 07/19/22 Unknown History release gabapentin 100 mg capsule 100 mg PO .COMPLEX PRN pain 11/26/23 Unknown History amlodipine 5 mg tablet 5 mg PO DAILY bp 12/16/23 Unknown History calcitriol 0.5 mcg capsule 0.5 mcg PO .COMPLEX on dialysis 12/16/23 Unknown History calcium acetate(phosphat bind) 667 676 mg PO TID is on dialysis 12/16/23 Unknown History mg capsule folic acid 800 mcg tablet 0.8 mg PO DAILY supplement 12/16/23 Unknown History levothyroxine 25 mcg tablet 25 mcg PO DAILY thyroid 12/16/23 Unknown History nitroglycerin 0.4 mg sublingual 0.4 mg sublingual Q5M chest pain 12/16/23 Unknown History tablet (Nitrostat) aspirin 81 mg capsule 81 mg PO DAILY blood thinner #30 12/26/23 Unknown Rx caps atorvastatin 40 mg tablet 40 mg PO DAILY cholesterol 03/18/24 06/26/24 History carvedilol 25 mg tablet 25 mg PO BID blood pressure 03/18/24 Unknown History acetaminophen 325 mg tablet 650 mg (2 x 325 mg) PO Q6H PRN PRN 05/21/24 Unknown Rx Pain 1-10 Or Fever>100.7 #0 tabs diphenhydramine HCl 25 mg capsule 25 mg PO Q6H PRN PRN Itching #0 05/21/24 Unknown Rx (Banophen) caps hydralazine 50 mg tablet 50 mg PO TID bp #0 tabs 05/21/24 Unknown Rx insulin lispro 100 unit/mL See Protocol subcut TIDAC blood 05/21/24 Unknown Rx subcutaneous pen (Humalog KwikPen sugar #0 mL (U-100) Insulin) lorazepam 0.5 mg tablet 0.5 mg PO MoWeFr@1000 #0 tabs 05/21/24 Unknown Rx melatonin 3 mg tablet 3 mg PO QHS PRN PRN Insomnia #0 05/21/24 Unknown Rx tabs menthol 0.44 %-zinc oxide 20.6 % 1 applic topical BID skin care #0 05/21/24 Unknown Rx topical ointment (Calmoseptine) grams sucralfate 1 gram tablet 1 g PO TID@0700,1100,1600 05/21/24 Unknown Rx indigestion #0 tabs Lactobacillus rhamnosus GG 10 1 cap PO BID probiotic 06/04/24 Unknown History billion cell capsule (Culturelle) oxycodone 5 mg tablet 5 mg PO Q4H PRN pain 06/27/24 Unknown History Allergy/AdvReac Type Severity Reaction Status Date / Time oxycodone (From OxyContin) Allergy sob Verified 06/27/24 08:27 Penicillins Allergy swelling Verified 06/27/24 08:27 in throat vancomycin Allergy Itching Verified 06/27/24 08:27 metronidazole AdvReac Nausea Verified 06/27/24 08:27 Family History Mother Diabetes CVA (cerebral vascular accident) Brother CAD (coronary artery disease) CABG X 3 Cancer testicular Diabetes Brother CAD (coronary artery disease) CABG X3 Diabetes Brother CAD (coronary artery disease) Stents Diabetes Sister CAD (coronary artery disease) CABG x 3 CVA (cerebral vascular accident) Diabetes Surgical History History of History of foot surgery History of bilateral carpal tunnel release History of rotator cuff surgery History of coronary artery stent placement (12/31/20) Social History household members: none number of children: 2 current occupational status: disabled Smoking Status: Never smoker alcohol intake: never substance use type: does not use caffeine: Yes Type: carbonated beverages Number of servings: 2 Physical Exam Const alert Constitutional Narrative: in distress, moaning with pain General Appearance: cooperative HEENT normocephalic and head/scalp atraumatic Eyes PERRL and EOMs intact bilaterally Neck supple and No nodes Resp normal air movement and clear to auscultation bilaterally Cardio regular rhythm Rate: tachycardic GI soft to palpation, non-tender and non-distended Extremity General Extremity: edema Skin Skin Narrative: R foot swelling, ulceration, redness, tenderness Neuro CN's II-XII intact bilaterally Lab / Micro Data Attestation: I reviewed the patient's lab results. 06/27/24 09:15 06/27/24 09:15 Labs: Laboratory Results - last 24 hr 06/27/24 09:15: WBC 6.0, RBC 3.15 L, Hgb 8.8 L, Hct 28.8 L, MCV 91.4, MCH 27.9, MCHC 30.6 L, RDW Std Deviation 68.1 H, RDW Coeff of Fior 21.1 H, Plt Count 281, MPV 9.2, Immature Gran % (Auto) 0.300, Neut % (Auto) 76.1 H, Lymph % (Auto) 11.3 L, [place] % (Auto) 8.3, Eos % (Auto) 3.3, Baso % (Auto) 0.7, Absolute Neuts (auto) 4.6, Absolute Lymphs (auto) 0.68 L, Nucleated RBC % 0, Anisocytosis 2+, PT 15.6 H, INR 1.2, APTT 45.6 H, Sodium 138, Potassium 4.4, Chloride 100, Carbon Dioxide 27.0, Anion Gap 11, BUN 29 H, Creatinine 4.19 H, Estim Creat Clear Calc 14.79, E st GFR (MDRD) Af Amer 14 L, Est GFR (MDRD) Non-Af 12 L, BUN/Creatinine Ratio 6.9 L, Glucose 73 L, Lactic Acid 0.8, Calcium 8.9, Total Bilirubin 0.40, AST 22, ALT 18, Alkaline Phosphatase 184 H, Total Protein 7.9, Albumin 2.7 L, Globulin 5.2 H , Albumin/Globulin Ratio 0.5 L 06/27/24 10:25: Urine Color Yellow, Urine Clarity Clear, Urine pH 8.0, Ur Specific [place] 1.010, Urine Protein 100 H, Urine Glucose (UA) Normal, Urine Ketones Negative, Urine Occult Blood 10 H, Urine Nitrite Negative, Urine Bilirubin Negative, Urine Urobilinogen Normal, Ur Leukocyte Esterase Negative, Urine RBC 0-5 SEEN, Urine WBC 0-5 SEEN, Ur Squamous Epith Cells 0-5 SEEN, Urine Bacteria 1+, Urine Mucus 0 SEEN Micro: Microbiology 06/27/24 09:14 Wound - Right Foot Gram Stain - Final Imaging Radiology Impression Ankle X-Ray 06/27/24 08:45 IMPRESSION: Soft tissue swelling and ulceration overlying the lateral malleolus. Charcot deformity of the midfoot. Electronically Signed: Ronnie Saavedra MD at 10:04 EDT , Chest X-Ray 06/27/24 08:45 IMPRESSION: Cardiomegaly. The lungs are clear. Electronically Signed: Ronnie Saavedra MD at 10:05 EDT , Foot X-Ray 06/27/24 08:45 IMPRESSION: Status post amputation of the fifth toe and fifth metatarsal as well as the navicular bones. Diffuse lateral soft tissue swelling and possible ulceration with the findings suggestive of a osteomyelitis at the distal tarsometatarsal joints. Electronically Signed: Ronnie Saavedra MD at 10:02 EDT , Lower Extremity CT 06/27/24 12:50 IMPRESSION: Findings suggestive of a Charcot deformity of the foot with soft tissue swelling and 3 focal areas of the fluid collection. No evidence of a necrotizing fasciitis. Electronically Signed: Ronnie Saavedra MD at 13:54 EDT ,
--- NOTE | 2024-06-27 15:45 | NS ---
06/27/24: RD will change diet to Renal 1800CCD diet since pt is on dialysis and also adjust ONS to Nepro instead of Ensure to manage renal labs. Susan Sanchez RDN, LD
[2024-06-27] MEDS: Sucralfate 1 GM Tablet PO (17:23)
[2024-06-27] MEDS: Nepro with Carbsteady 237 ML Liquid 120 ML PO (17:23)
[2024-06-27] MEDS: Pantoprazole Sodium 40 MG Tablet PO (17:24)
[2024-06-27] MEDS: Calcium Acetate 667 MG Capsule 676 MG PO (17:24)
[2024-06-27 17:45] LABS: Bedside Glucose 89 mg/dL (74-106)
[2024-06-27] MEDS: hydrALAZINE 50 MG Tablet PO (22:39)
[2024-06-27] MEDS: Atorvastatin Calcium 40 MG Tablet PO (22:41)
[2024-06-27] MEDS: Carvedilol 25 MG Tablet PO (22:41)
[2024-06-27] MEDS: Ascorbic Acid 500 MG Tablet PO (22:41)
[2024-06-27] MEDS: Lactobacillis Acidophilus 1 CAP PO (22:42)
[2024-06-27 23:28] LABS: Bedside Glucose 111 mg/dL (74-106)
[2024-06-28] VITALS (8 sets, daily range): BP systolic 130–165; BP diastolic 58–84; PULSE 74–91; RESP 18; TEMP 36.8–37; O2SAT 94–96
[2024-06-28] MEDS: Pramipexole Di-HCl 0.125 MG Tablet PO ×2 (00:32→22:57)
[2024-06-28] MEDS: Heparin Injection (Vial) 5,000 UNIT/ML VIAL 5000 UNIT SC ×3 (06:34→23:00)
[2024-06-28 06:54] LABS: Bedside Glucose 91 mg/dL (74-106)
[2024-06-28 07:00] LABS: Absolute Lymphocyte Count 0.52 X10^3/uL (0.83-4.51); Absolute Neutrophil Count 6.3 X10^3/uL (2.0-7.7); Basophil# 0.04 X10^3/uL; Basophil% 0.5 % (0-1); Eosinophil# 0.14 X10^3/uL; Eosinophils% 1.9 % (0-5); Hematocrit 27.4 % (37-47); Hemoglobin 8.2 g/dL (12.0-15.0); Lymphocyte # 0.52 X10^3/ul (0.83-4.51); Mean Corp Hgb Conc 29.9 g/dL (32-36); Mean Corpuscular Volume 96.8 fL (81-99); Mean Platelet Vol. 9.6 fl (6.2-12.0); Monocyte# 0.45 X10^3/uL; NRBC Flagged by Analyzer 0 % (0-5); Neutrophil # 6.26 X10^3/uL (2.7-7.7); Neutrophil % 84.2 % (47-70); POSITIVE DIFFERENTIAL YES; POSITIVE MORPHOLOGY YES; Platelet Count 230 K/mm3 (150-450); RBC Distribution Width CV 20.9 % (11.6-14.6); RBC Distribution Width SD 73.1 fl (35.1-43.9); Red Blood Count 2.83 M/mm3 (4.2-5.4); White Blood Count 7.4 K/mm3 (4.4-11.0)
[2024-06-28 07:10] LABS: Differential Indicated SCAN CRITERIA MET
[2024-06-28 07:26] LABS: Anion Gap 6 (5-15); BUN 36 mg/dL (7-18); BUN/Creat Ratio 7.2 RATIO (10-20); Calcium,Total 8.5 mg/dL (8.5-10.1); Chloride 104 mmol/L (98-107); EST Glomerular Filtration Rate 9 mL/min (>60); Est Glom Filt Rate - Afr Amer 11 mL/min (>60); Estimated Creatinine Clearance 11.41 ml/min; Glucose 94 mg/dL (74-106); Potassium 5.1 mmol/L (3.5-5.1); Sodium Level 136 mmol/L (136-145)
[2024-06-28] MEDS: Sucralfate 1 GM Tablet PO ×3 (09:38→17:07)
[2024-06-28] MEDS: Linezolid 600 MG 600 MG/300 ML BAG 200 MG IV ×2 (09:41→23:00)
[2024-06-28] MEDS: Calcium Acetate 667 MG Capsule 676 MG PO ×3 (09:44→17:08)
[2024-06-28] MEDS: Aspirin 81 MG TAB.CHEW PO (09:44)
[2024-06-28] MEDS: Ferrous Sulfate 325 MG Tablet PO (09:45)
[2024-06-28] MEDS: Pantoprazole Sodium 40 MG Tablet PO ×2 (09:45→17:08)
[2024-06-28] MEDS: Folic Acid 1 MG Tablet PO (09:45)
[2024-06-28] MEDS: Ascorbic Acid 500 MG Tablet PO ×2 (09:45→23:00)
[2024-06-28] MEDS: Paroxetine 20 MG Tablet PO (09:46)
[2024-06-28] MEDS: Lactobacillis Acidophilus 1 CAP PO ×2 (09:46→22:59)
[2024-06-28] MEDS: amLODIPine 5 MG Tablet PO (09:46)
[2024-06-28] MEDS: buPROPion (XL) 150 MG TABLET.XL PO (09:47)
[2024-06-28] MEDS: Carvedilol 25 MG Tablet PO ×2 (09:47→22:59)
[2024-06-28 10:22] LABS: Anisocytosis 2+; Differential Comment SCANNED; Macrocytosis 1+; Microcytosis 1+
--- NOTE | 2024-06-28 11:52 | CON.PCM_ITS ---
Assessment & Plan Assessment/Plan (1) Other acute osteomyelitis, right ankle and foot: PLAN: Exam performed. Radiographs CT scan reviewed. No concerns for new onset acute osteomyelitis at this time. Infectious disease on board. Wounds were debrided bedside. The right lateral ankle and left lateral ankle wounds were excisionally debrided down to including level of muscle while the plantar foot wounds were debrided down to including level of subcutaneous tissue bilaterally using a 5 mm dermal curette. All nonviable tissue was removed. Hemostasis obtained with light compression. No anesthesia due to neuropathy. Patient tolerated procedure well. Sites flushed with saline. Right lateral ankle swab culture taken. Recommend return to [facility] for continued nonweightbearing with continued follow-up in the wound care center on a weekly basis. Will plan for daily Dakin's wet-to-dry dressings to all wound sites bilaterally with overlying dry sterile dressing and [place] bandage for compression performed on a daily basis upon discharge back to [facility]. (2) Non-pressure chronic ulcer of other part of right foot with necrosis of muscle: (3) Non-pressure chronic ulcer of other part of left foot with necrosis of muscle: HPI Consult Data Date of Consult: 06/28/24 HPI Narrative HPI Narrative: DIONY ROCHA, is a 59 F who presents with bilateral ulcerations in setting of dehisced surgical incisions to the lateral right ankle and lateral left ankle as well as significantly improved plantar midfoot ulcerations status post fifth met base resection with peroneus brevis tendon transfer on 05/10/2024. Patient admitted due to apparent right lower extremity pain. Patient seen resting comfortably today. Patient did not feel need debriding bilateral lower extremity ulcerations today due to diabetic neuropathy. [facility] Medical History Non-pressure chronic ulcer of right ankle with necrosis of muscle Non-pressure chronic 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 layer exposed Non-pressure chronic ulcer of other part of left foot with fat layer exposed Non-pressure chronic ulcer of left ankle with necrosis of muscle Adverse effect of synthetic cannabinoids, initial encounter [place] coma scale score 13-15, at arrival to emergency department Acute alteration in mental status ESRD (end stage renal disease) on dialysis Short Achilles tendon (acquired), left ankle Short Achilles tendon (acquired), right ankle Acquired cavovarus deformity of left foot Acquired cavovarus deformity of right foot Type 2 diabetes mellitus with diabetic polyneuropathy Adult failure to thrive Debility Charcot's joint, right ankle and foot Charcot's joint, left ankle and foot Drowsiness Mental status, decreased Carotid artery stenosis MSSA bacteremia ESRD on hemodialysis Osteomyelitis Anemia in chronic illness Type 2 diabetes mellitus Foot osteomyelitis, left Chronic renal disease, stage 4, severely decreased glomerular filtration rate (GFR) between 15-29 mL/min/1.73 square meter Acute on chronic anemia Chronic ulcer of right foot with necrosis of bone Chronic kidney disease, stage 4 (severe) Diabetes mellitus with diabetic polyneuropathy Diabetic foot ulcers Chronic kidney disease, stage 3b Cellulitis Acute lumbar radiculopathy Essential hypertension Adult failure to thrive COVID-19 (08/28/21) Chronic ulcer of right leg with fat layer exposed Ulcer of left foot with fat layer exposed Chronic ulcer of right foot with fat layer exposed Hyperparathyroidism, secondary renal Iron deficiency anemia Bilateral edema of lower extremity Chronic foot pain Charcot's joint of right foot Diabetes Non-smoker Myocardial infarct Hypertension TIA (transient ischemic attack) Amputation foot, bilat 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 Ulcer of left foot with necrosis of muscle Ulcer of left foot with muscle involvement without evidence of necrosis Anxiety and depression Diabetic infection of left foot Delayed wound healing Non-compliance Diabetic polyneuropathy Ischemic cardiomyopathy Obesity (BMI 30.0-34.9) Acquired varus deformity of left foot Acquired varus deformity of right foot Atherosclerosis of [place] coronary artery of [place] heart without angina pectoris Hemoglobin A1c greater than 9.0% NSTEMI (non-ST elevated myocardial infarction) (09/20/18) GERD (gastroesophageal reflux disease) HLD (hyperlipidemia) Back pain, chronic RLS (restless legs syndrome) Home Medications ?Medication ?Instructions ?Recorded ?Last Taken ?Type paroxetine HCl 20 mg tablet 20 mg PO DAILY DEPRESSION 07/07/21 04/07/22 History bupropion HCl 150 mg 24 hr tablet, 150 mg PO DAILY mood 02/04/22 04/07/22 History extended release sennosides 8.6 mg-docusate sodium 2 tab PO BID PRN PRN Constipation 04/24/22 Unknown Rx 50 mg tablet (Stool #0 tabs Softener-Stimulant Laxative) ascorbic acid (vitamin C) 500 mg 500 mg PO BID supplement 05/05/22 Unknown History tablet (Vitamin C) ferrous sulfate 325 mg (65 mg 325 mg PO .three times a week 07/19/22 Unknown History iron) tablet anemia pantoprazole 40 mg tablet,delayed 40 mg PO BIDCM GERD 07/19/22 Unknown History release gabapentin 100 mg capsule 100 mg PO .COMPLEX PRN pain 11/26/23 Unknown History amlodipine 5 mg tablet 5 mg PO DAILY bp 12/16/23 Unknown History calcitriol 0.5 mcg capsule 0.5 mcg PO .COMPLEX on dialysis 12/16/23 Unknown History calcium acetate(phosphat bind) 667 676 mg PO TID is on dialysis 12/16/23 Unknown History mg capsule folic acid 800 mcg tablet 0.8 mg PO DAILY supplement 12/16/23 Unknown History levothyroxine 25 mcg tablet 25 mcg PO DAILY thyroid 12/16/23 Unknown History nitroglycerin 0.4 mg sublingual 0.4 mg sublingual Q5M chest pain 12/16/23 Unknown History tablet (Nitrostat) aspirin 81 mg capsule 81 mg PO DAILY blood thinner #30 12/26/23 Unknown Rx caps atorvastatin 40 mg tablet 40 mg PO DAILY cholesterol 03/18/24 06/26/24 History carvedilol 25 mg tablet 25 mg PO BID blood pressure 03/18/24 Unknown History acetaminophen 325 mg tablet 650 mg (2 x 325 mg) PO Q6H PRN PRN 05/21/24 Unknown Rx Pain 1-10 Or Fever>100.7 #0 tabs diphenhydramine HCl 25 mg capsule 25 mg PO Q6H PRN PRN Itching #0 05/21/24 Unknown Rx (Banophen) caps hydralazine 50 mg tablet 50 mg PO TID bp #0 tabs 05/21/24 Unknown Rx insulin lispro 100 unit/mL See Protocol subcut TIDAC blood 05/21/24 Unknown Rx subcutaneous pen (Humalog KwikPen sugar #0 mL (U-100) Insulin) lorazepam 0.5 mg tablet 0.5 mg PO MoWeFr@1000 #0 tabs 05/21/24 Unknown Rx melatonin 3 mg tablet 3 mg PO QHS PRN PRN Insomnia #0 05/21/24 Unknown Rx tabs menthol 0.44 %-zinc oxide 20.6 % 1 applic topical BID skin care #0 05/21/24 Unknown Rx topical ointment (Calmoseptine) grams sucralfate 1 gram tablet 1 g PO TID@0700,1100,1600 05/21/24 Unknown Rx indigestion #0 tabs Lactobacillus rhamnosus GG 10 1 cap PO BID probiotic 06/04/24 Unknown History billion cell capsule (Culturelle) oxycodone 5 mg tablet 5 mg PO Q4H PRN pain 06/27/24 Unknown History Allergy/AdvReac Type Severity Reaction Status Date / Time oxycodone (From OxyContin) Allergy sob Verified 06/27/24 08:27 Penicillins Allergy swelling Verified 06/27/24 08:27 in throat vancomycin Allergy Itching Verified 06/27/24 08:27 metronidazole AdvReac Nausea Verified 06/27/24 08:27 Family History Mother Diabetes CVA (cerebral vascular accident) Brother CAD (coronary artery disease) CABG X 3 Cancer testicular Diabetes Brother CAD (coronary artery disease) CABG X3 Diabetes Brother CAD (coronary artery disease) Stents Diabetes Sister CAD (coronary artery disease) CABG x 3 CVA (cerebral vascular accident) Diabetes Surgical History History of History of foot surgery History of bilateral carpal tunnel release History of rotator cuff surgery History of coronary artery stent placement (12/31/20) Social History household members: none number of children: 2 current occupational status: disabled Smoking Status: Never smoker alcohol intake: never substance use type: does not use caffeine: Yes Type: carbonated beverages Number of servings: 2 Physical Exam Narrative Neurovascular status unchanged Full-thickness ulceration noted to the right lateral ankle extending down to the peroneus brevis tendon. Predebridement the wound was 6.0 x 2.5 x 0.5 cm. Postdebridement the wound was 6.2 x 2.7 x 0.6 cm. Wound demonstrates mild erythema to the periwound region. Postdebridement the wound demonstrates exposed peroneus brevis tendon with the REJI area demonstrating clean granular base. Full-thickness ulceration noted to the plantar right midfoot measuring 1.9 x 2.0 x 0.2 cm predebridement. Postdebridement the wound was 2.0 x 2.1 x 0.2 cm. Wound demonstrated 100% granular base with no deep probing undermining or acute signs of infection. Full-thickness ulceration noted to the plantar left midfoot measuring 0.3 x 1.0 x 0.2 cm predebridement postdebridement 0.4 x 1.1 x 0.3 cm. Wound demonstrates 100% granular base with clean skin edges no deep probing or undermining. No acute signs of infection. Left lateral ankle ulceration noted to be 1.5 x 1.5 x 0.5 cm in depth extending down to the peroneus brevis tendon. Postdebridement wound was 1.6 x 1.6 x 0.6 cm. No acute signs of infection noted. No evidence of cavovarus deformity today despite resection of fifth metatarsal base bilaterally. Lab / Micro Data 06/28/24 06:46 06/28/24 06:46 Labs: Laboratory Results - last 24 hr 06/27/24 17:19: POC Glucose 89 06/27/24 23:10: POC Glucose 111 H 06/28/24 06:33: POC Glucose 91 06/28/24 06:46: WBC 7.4, RBC 2.83 L, Hgb 8.2 L, Hct 27.4 L, MCV 96.8 D, MCH 29.0, MCHC 29.9 L, RDW Std Deviation 73.1 H, RDW Coeff of Fior 20.9 H, Plt Count 230, MPV 9.6, Immature Gran % (Auto) 0.400, Neut % (Auto) 84.2 H, Lymph % (Auto) 7.0 L, [place] % (Auto) 6.0, Eos % (Auto) 1.9, Baso % (Auto) 0.5, Absolute Neuts (auto) 6.3, Absolute Lymphs (auto) 0.52 L, Nucleated RBC % 0, Differential Comment SCANNED, Anisocytosis 2+, Microcytosis 1+, Macrocytosis 1+, Sodium 136, Potassium 5.1, Chloride 104, Carbon Dioxide 26.0, Anion Gap 6, BUN 36 H, C reatinine 5.00 H, Estim Creat Clear Calc 11.41, Est GFR (MDRD) Af Amer 11 L, Est GFR (MDRD) Non-Af 9 L, BUN/Creatinine Ratio 7.2 L, Glucose 94, Calcium 8.5 Micro: Microbiology 06/27/24 09:14 Wound - Right Foot Gram Stain - Final 06/27/24 09:14 Wound - Right Foot Wound Culture - Preliminary Staphylococcus aureus GPC Poss Enterococcus sp Gram positive organism Imaging Radiology Impression Lower Extremity CT 06/27/24 12:50 IMPRESSION: Findings suggestive of a Charcot deformity of the foot with soft tissue swelling and 3 focal areas of the fluid collection. No evidence of a necrotizing fasciitis. Electronically Signed: Ronnie Saavedra MD at 13:54 EDT ,
[2024-06-28 12:10] LABS: Bedside Glucose 134 mg/dL (74-106)
--- NOTE | 2024-06-28 12:25 | CASEMGMT ---
Addendum entered by Georgia Williamson 06/28/24 15:06: A list of SNF providers including quality and resource use data and consistent with the patient?s preferred geographic region, medical needs, and insurance network were provided from the [employer] Guide. Pt is reviewing. ERIN Johnson Original Note: Social Work- SW met with pt to discuss preference at d/c and conduct SDOH assessment. Pt states that she does not want to return to [facility] d/t not getting therapy, bandages not being changed on time, not getting pain meds all the time, and being yelled at for crying. Pt reports that she cries when she is in pain. Pt reports that she does have some depression nearly every day, intensified when pt is in pain. Pt has trouble falling asleep. Pt does not report any feelings of self harm or negative feelings of self. Pt reported that she did not want to return to [facility] and wants to go to son or daughter's home. SW encouraged pt that d/t pt needs and lack of available care with family, that a SNF would be an appropriate level of care. SW will f/u with pt on preferences. ERIN Johnson
--- NOTE | 2024-06-28 12:42 | PN_ITS ---
Subjective Subjective Patient seen and examined. She was complaining of pain. She denied any fever or chills, palpitations, dizziness, nausea vomiting or any other symptoms. Review of systems otherwise negative. Objective Data Objective Data Vital Signs: Vital Signs Temp Pulse Resp BP Pulse Ox O2 Del Method O2 Flow Rate 98.2 F 75 18 165/84 H 96 Nasal Cannula 2 06/28/24 09:00 06/28/24 09:00 06/28/24 09:00 06/28/24 09:00 06/28/24 09:00 06/28/24 09:00 06/28/24 09:00 FiO2 2 06/27/24 17:34 Oxygen Flow Rate (L/min) 2 Oxygen Delivery Method Nasal Cannula Weight: 155 lb 10.342 oz Body Mass Index (BMI) 27.6 Intake & Output: Intake and Output for Last 24 Hours 06/26/24 06/27/24 06/28/24 23:59 23:59 23:59 Intake Total 3592.85 / 3592.85 600 / 600 Output Total 200 / 400 200 / 200 Balance 3392.85 / 3192.85 400 / 400 Lab / Micro Data 06/28/24 06:46 06/28/24 06:46 Labs: Laboratory Results - last 24 hr 06/27/24 17:19: POC Glucose 89 06/27/24 23:10: POC Glucose 111 H 06/28/24 06:33: POC Glucose 91 06/28/24 06:46: WBC 7.4, RBC 2.83 L, Hgb 8.2 L, Hct 27.4 L, MCV 96.8 D, MCH 29.0, MCHC 29.9 L, RDW Std Deviation 73.1 H, RDW Coeff of Fior 20.9 H, Plt Count 230, MPV 9.6, Immature Gran % (Auto) 0.400, Neut % (Auto) 84.2 H, Lymph % (Auto) 7.0 L, [place] % (Auto) 6.0, Eos % (Auto) 1.9, Baso % (Auto) 0.5, Absolute Neuts (auto) 6.3, Absolute Lymphs (auto) 0.52 L, Nucleated RBC % 0, Differential Comment SCANNED, Anisocytosis 2+, Microcytosis 1+, Macrocytosis 1+, Sodium 136, Potassium 5.1, Chloride 104, Carbon Dioxide 26.0, Anion Gap 6, BUN 36 H, C reatinine 5.00 H, Estim Creat Clear Calc 11.41, Est GFR (MDRD) Af Amer 11 L, Est GFR (MDRD) Non-Af 9 L, BUN/Creatinine Ratio 7.2 L, Glucose 94, Calcium 8.5 06/28/24 11:49: POC Glucose 134 H Micro: Microbiology 06/27/24 09:14 Wound - Right Foot Gram Stain - Final 06/27/24 09:14 Wound - Right Foot Wound Culture - Preliminary Staphylococcus aureus GPC Poss Enterococcus sp Gram positive organism Radiography Diagnostic Testing: Radiology Impression Lower Extremity CT 06/27/24 12:50 IMPRESSION: Findings suggestive of a Charcot deformity of the foot with soft tissue swelling and 3 focal areas of the fluid collection. No evidence of a necrotizing fasciitis. Electronically Signed: Ronnie Saavedra MD at 13:54 EDT , Physical Exam Const alert and oriented x3 Constitutional Narrative: frail, weak, in mild distress due to pain. HEENT normocephalic, head/scalp atraumatic and moist oral mucous membranes Eyes PERRL and EOMs intact bilaterally Neck no lymphadenopathy and supple Lymph Lymphatic: no lymphadenopathy noted Resp Resp Narrative: Mildly diminished breath sounds bibasilar. No wheezes or crackles. On 2 L of oxygen by nasal cannula. Cardio regular rate, regular rhythm, S1 normal heart sound, S2 normal heart sound and no murmurs GI normal to inspection, nondistended, normoactive bowel sounds, soft to palpation, non-tender and non-distended Extremity Extremity Narrative: both feet wrapped in bandage Skin Skin Narrative: as under extremities Neuro CN's II-XII intact bilaterally, no focal motor deficits, no sensory deficits noted and deep tendon reflexes 2+ bilaterally Motor Exam: strength 5/5 throughout and general weakness Psych Activity / Motor Behavior: restless Mood & Affect: flat affect Assessment & Plan Assessment/Plan (1) Diabetic infection of right foot: (2) ESRD (end stage renal disease) on dialysis: (3) Debility: PLAN: Plan #Intractable back pain * Patient does have chronic back pain. She states her oxycodone was stopped a couple of days ago in her fdc. She is not sure why. She says she is allergic to OxyContin but no oxycodone and is able to take the short acting oxycodone. * She would like her medications restarted. * P.o. Tylenol, p.o. oxycodone and IV morphine as needed for pain * PT OT on board. Fall precautions. * #Right lower extremity diabetic foot cellulitis, concern of osteomyelitis * She did have recent corrective surgery for neuropathic ulcerations of both feet due to short Achilles tendon of both right and left ankles. * She says she went to the wound care yesterday and it was dressed. She is still however having increased discharge from the foot. Is also erythematous and tender. She has a similar ulcer on the left foot but is not as erythematous and tender discharge in the past. * X-ray of the right foot showed diffuse lateral soft tissue swelling and possible ulceration suggestive of osteomyelitis at the distal tarsometatarsal joint. * on IV linezolid and meropenem in light of her allergy to penicillins and vancomycin. * ID consulted. * Per podiatry, no concerns for acute osteomyelitis at this time. Wounds were debrided at the bedside. * Blood cultures and wound cultures ordered * ID ordered left lower extremity CT which showed findings suggestive of a Charcot deformity of the foot with soft tissue swelling and 3 focal areas of fluid collection with no evidence of necrotizing fasciitis. * Per podiatry, to be nonweightbearing with continued follow-up in the wound care center on a weekly basis. To have Dakin's wet-to-dry dressings to all wound sites bilaterally with overlying dry sterile dressing and [place] bandage for compression on a daily basis. * #ESRD: On dialysis Wednesdays and Fridays. Nephrology consulted. #History of anemia due to bleeding peptic ulcers: On pantoprazole. #Type 2 diabetes mellitus with neuropathy: On Lantus. Insulin sliding scale. Accu-Cheks ACHS. #Depression with anxiety: Continue antidepressants #Hyperlipidemia: On statin #GERD: On PPI DVT prophylaxis: SCDs. CODE STATUS: Full code * Patient counseled extensively about different types of CODE STATUS including full code, DNR CCA and DNR CCA. Patient elects to be full code. Total [id number] time 17 minutes. Charges/Coding Visit Charges Inpatient E&M: 10118 Subs Hosp L2
--- NOTE | 2024-06-28 14:00 | WOUNDNOTE ---
wound photo: right plantar foot
--- NOTE | 2024-06-28 14:02 | WOUNDNOTE ---
wound photo: right lateral ankle
--- NOTE | 2024-06-28 14:03 | WOUNDNOTE ---
wound photo: left lateral foot/ankle
--- NOTE | 2024-06-28 14:03 | WOUNDNOTE ---
wound photo: left plantar foot
[2024-06-28] MEDS: Meropenem 500 MG in 0.9% Normal Saline (50mL MB+) 50 ML 100 MG IV (14:37)
[2024-06-28] MEDS: hydrALAZINE 50 MG Tablet PO ×2 (14:41→23:00)
[2024-06-28 15:23] LABS: M R Staph aureus DNA By PCR Negative (Negative); Probe Check PASS; Specimen Processing Control PASS; Staph aureus DNA By PCR POSITIVE (Negative)
--- NOTE | 2024-06-28 15:31 | PCM.PN.ID ---
Physical Exam Narrative Feeling a little better, pain improved, no fever, no n/v/d Const no apparent distress General Appearance: cooperative Resp normal air movement and clear to auscultation bilaterally Cardio regular rate and regular rhythm GI soft to palpation, non-tender and non-distended Extremity General Extremity: edema Skin Skin Narrative: feet wrapped ID ID: Route of nutrition/ use of supplements: [] Nutritional Intake: [] IV Site: [] Tirado Catheter: [] Assessment & Plan Assessment/Plan (1) ESRD (end stage renal disease) on dialysis: (2) Diabetic infection of right foot: PLAN: Wound cx and bcx pending. CT shows possible abscesses. Podiatry following. Will cont with linezolid/jonel for now given allergy and prior cx history. Will follow
--- NOTE | 2024-06-28 15:43 | PCM.CONS.R ---
Assessment & Plan Assessment/Plan (1) ESRD (end stage renal disease) on dialysis: PLAN: On hemodialysis, Tuesday, Tuesday, Tuesday. Dialysis was Tuesday. Will plan for dialysis Anemia. Hemoglobin is on the lower side. Will likely start JORGE with dialysis next week. Lower extremity cellulitis. ID on consult. HPI Consult Data Date of Consult: 06/28/24 HPI Narrative Reason for Consultation: ESRD HPI Narrative: IDONY ROCHA, is a 59 F who presents to the hospital with lower extremity cellulitis/abscess. Nephrology on consultation in view of ESRD. Primary shirring tender is Dr. Flynn. Usually gets dialysis Tuesday, , Tuesday. ID note reviewed. CT scan shows possible abscess. Podiatry on consult. [facility] Medical History Non-pressure chronic ulcer of right ankle with necrosis of muscle Non-pressure chronic 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 layer exposed Non-pressure chronic ulcer of other part of left foot with fat layer exposed Non-pressure chronic ulcer of left ankle with necrosis of muscle Adverse effect of synthetic cannabinoids, initial encounter Avery coma scale score 13-15, at arrival to emergency department Acute alteration in mental status ESRD (end stage renal disease) on dialysis Short Achilles tendon (acquired), left ankle Short Achilles tendon (acquired), right ankle Acquired cavovarus deformity of left foot Acquired cavovarus deformity of right foot Type 2 diabetes mellitus with diabetic polyneuropathy Adult failure to thrive Debility Charcot's joint, right ankle and foot Charcot's joint, left ankle and foot Drowsiness Mental status, decreased Carotid artery stenosis MSSA bacteremia ESRD on hemodialysis Osteomyelitis Anemia in chronic illness Type 2 diabetes mellitus Foot osteomyelitis, left Chronic renal disease, stage 4, severely decreased glomerular filtration rate (GFR) between 15-29 mL/min/1.73 square meter Acute on chronic anemia Chronic ulcer of right foot with necrosis of bone Chronic kidney disease, stage 4 (severe) Diabetes mellitus with diabetic polyneuropathy Diabetic foot ulcers Chronic kidney disease, stage 3b Cellulitis Acute lumbar radiculopathy Essential hypertension Adult failure to thrive COVID-19 (08/28/21) Chronic ulcer of right leg with fat layer exposed Ulcer of left foot with fat layer exposed Chronic ulcer of right foot with fat layer exposed Hyperparathyroidism, secondary renal Iron deficiency anemia Bilateral edema of lower extremity Chronic foot pain Charcot's joint of right foot Diabetes Non-smoker Myocardial infarct Hypertension TIA (transient ischemic attack) Amputation foot, bilat 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 Ulcer of left foot with necrosis of muscle Ulcer of left foot with muscle involvement without evidence of necrosis Anxiety and depression Diabetic infection of left foot Delayed wound healing Non-compliance Diabetic polyneuropathy Ischemic cardiomyopathy Obesity (BMI 30.0-34.9) Acquired varus deformity of left foot Acquired varus deformity of right foot Atherosclerosis of [place] coronary artery of [place] heart without angina pectoris Hemoglobin A1c greater than 9.0% NSTEMI (non-ST elevated myocardial infarction) (09/20/18) GERD (gastroesophageal reflux disease) HLD (hyperlipidemia) Back pain, chronic RLS (restless legs syndrome) Home Medications ?Medication ?Instructions ?Recorded ?Last Taken ?Type paroxetine HCl 20 mg tablet 20 mg PO DAILY DEPRESSION 07/07/21 04/07/22 History bupropion HCl 150 mg 24 hr tablet, 150 mg PO DAILY mood 02/04/22 04/07/22 History extended release sennosides 8.6 mg-docusate sodium 2 tab PO BID PRN PRN Constipation 04/24/22 Unknown Rx 50 mg tablet (Stool #0 tabs Softener-Stimulant Laxative) ascorbic acid (vitamin C) 500 mg 500 mg PO BID supplement 05/05/22 Unknown History tablet (Vitamin C) ferrous sulfate 325 mg (65 mg 325 mg PO .three times a week 07/19/22 Unknown History iron) tablet anemia pantoprazole 40 mg tablet,delayed 40 mg PO BIDCM GERD 07/19/22 Unknown History release gabapentin 100 mg capsule 100 mg PO .COMPLEX PRN pain 11/26/23 Unknown History amlodipine 5 mg tablet 5 mg PO DAILY bp 12/16/23 Unknown History calcitriol 0.5 mcg capsule 0.5 mcg PO .COMPLEX on dialysis 12/16/23 Unknown History calcium acetate(phosphat bind) 667 676 mg PO TID is on dialysis 12/16/23 Unknown History mg capsule folic acid 800 mcg tablet 0.8 mg PO DAILY supplement 12/16/23 Unknown History levothyroxine 25 mcg tablet 25 mcg PO DAILY thyroid 12/16/23 Unknown History nitroglycerin 0.4 mg sublingual 0.4 mg sublingual Q5M chest pain 12/16/23 Unknown History tablet (Nitrostat) aspirin 81 mg capsule 81 mg PO DAILY blood thinner #30 12/26/23 Unknown Rx caps atorvastatin 40 mg tablet 40 mg PO DAILY cholesterol 03/18/24 06/26/24 History carvedilol 25 mg tablet 25 mg PO BID blood pressure 03/18/24 Unknown History acetaminophen 325 mg tablet 650 mg (2 x 325 mg) PO Q6H PRN PRN 05/21/24 Unknown Rx Pain 1-10 Or Fever>100.7 #0 tabs diphenhydramine HCl 25 mg capsule 25 mg PO Q6H PRN PRN Itching #0 05/21/24 Unknown Rx (Banophen) caps hydralazine 50 mg tablet 50 mg PO TID bp #0 tabs 05/21/24 Unknown Rx insulin lispro 100 unit/mL See Protocol subcut TIDAC blood 05/21/24 Unknown Rx subcutaneous pen (Humalog KwikPen sugar #0 mL (U-100) Insulin) lorazepam 0.5 mg tablet 0.5 mg PO MoWeFr@1000 #0 tabs 05/21/24 Unknown Rx melatonin 3 mg tablet 3 mg PO QHS PRN PRN Insomnia #0 05/21/24 Unknown Rx tabs menthol 0.44 %-zinc oxide 20.6 % 1 applic topical BID skin care #0 05/21/24 Unknown Rx topical ointment (Calmoseptine) grams sucralfate 1 gram tablet 1 g PO TID@0700,1100,1600 05/21/24 Unknown Rx indigestion #0 tabs Lactobacillus rhamnosus GG 10 1 cap PO BID probiotic 06/04/24 Unknown History billion cell capsule (Culturelle) oxycodone 5 mg tablet 5 mg PO Q4H PRN pain 06/27/24 Unknown History Allergy/AdvReac Type Severity Reaction Status Date / Time oxycodone (From OxyContin) Allergy sob Verified 06/27/24 08:27 Penicillins Allergy swelling Verified 06/27/24 08:27 in throat vancomycin Allergy Itching Verified 06/27/24 08:27 metronidazole AdvReac Nausea Verified 06/27/24 08:27 Family History Mother Diabetes CVA (cerebral vascular accident) Brother CAD (coronary artery disease) CABG X 3 Cancer testicular Diabetes Brother CAD (coronary artery disease) CABG X3 Diabetes Brother CAD (coronary artery disease) Stents Diabetes Sister CAD (coronary artery disease) CABG x 3 CVA (cerebral vascular accident) Diabetes Surgical History History of History of foot surgery History of bilateral carpal tunnel release History of rotator cuff surgery History of coronary artery stent placement (12/31/20) Social History household members: none number of children: 2 current occupational status: disabled Smoking Status: Never smoker alcohol intake: never substance use type: does not use caffeine: Yes Type: carbonated beverages Number of servings: 2 ROS ROS Narrative Negative except above Physical Exam Narrative Alert awake oriented x 3 no obvious distress no pallor no icterus no JVD s1s2 no murmurs lungs clear abdomen soft no organomegaly no edema no cyanosis Lab / Micro Data 06/28/24 06:46 06/28/24 06:46 Labs: Laboratory Results - last 24 hr 06/27/24 17:19: POC Glucose 89 06/27/24 23:10: POC Glucose 111 H 06/28/24 06:33: POC Glucose 91 06/28/24 06:46: WBC 7.4, RBC 2.83 L, Hgb 8.2 L, Hct 27.4 L, MCV 96.8 D, MCH 29.0, MCHC 29.9 L, RDW Std Deviation 73.1 H, RDW Coeff of Fior 20.9 H, Plt Count 230, MPV 9.6, Immature Gran % (Auto) 0.400, Neut % (Auto) 84.2 H, Lymph % (Auto) 7.0 L, [place] % (Auto) 6.0, Eos % (Auto) 1.9, Baso % (Auto) 0.5, Absolute Neuts (auto) 6.3, Absolute Lymphs (auto) 0.52 L, Nucleated RBC % 0, Differential Comment SCANNED, Anisocytosis 2+, Microcytosis 1+, Macrocytosis 1+, Sodium 136, Potassium 5.1, Chloride 104, Carbon Dioxide 26.0, Anion Gap 6, BUN 36 H, Creatinine 5.00 H, Estim Creat Clear Calc 11.41, Est GFR (MDRD) Af Amer 11 L, Est GFR (MDRD) Non-Af 9 L, BUN/Creatinine Ratio 7.2 L, Glucose 94, Calcium 8.5 06/28/24 11:49: POC Glucose 134 H 06/28/24 12:11: S.aureus Protein A PCR POSITIVE H, MRSA (PCR) Negative Micro: Microbiology 06/27/24 09:14 Wound - Right Foot Gram Stain - Final 06/27/24 09:14 Wound - Right Foot Wound Culture - Preliminary Staphylococcus aureus GPC Poss Enterococcus sp Gram positive organism
[2024-06-28 17:21] LABS: Bedside Glucose 97 mg/dL (74-106)
[2024-06-28] MEDS: Atorvastatin Calcium 40 MG Tablet PO (23:00)
[2024-06-28] MEDS: MELATONIN 3 MG TABLET PO (23:08)
[2024-06-28 23:09] LABS: Bedside Glucose 103 mg/dL (74-106)
[2024-06-29] VITALS (19 sets, daily range): BP systolic 134–225; BP diastolic 59–102; PULSE 71–88; RESP 16–72; TEMP 36.4–37.1; O2SAT 93–98; BMI 38.9; BMI 40.0
[2024-06-29] MEDS: LORazepam 0.5 MG Tablet PO (00:50)
[2024-06-29] MEDS: Heparin Injection (Vial) 5,000 UNIT/ML VIAL 5000 UNIT SC ×2 (06:55→20:06)
[2024-06-29 07:11] LABS: Bedside Glucose 114 mg/dL (74-106)
[2024-06-29 07:27] LABS: Absolute Lymphocyte Count 0.41 X10^3/uL (0.83-4.51); Absolute Neutrophil Count 6.7 X10^3/uL (2.0-7.7); Basophil# 0.05 X10^3/uL; Basophil% 0.6 % (0-1); Eosinophil# 0.09 X10^3/uL; Eosinophils% 1.2 % (0-5); Hematocrit 28.8 % (37-47); Hemoglobin 8.4 g/dL (12.0-15.0); Lymphocyte # 0.41 X10^3/ul (0.83-4.51); Lymphocyte % 5.3 % (19-41); Mean Corp Hgb Conc 29.2 g/dL (32-36); Mean Platelet Vol. 9.7 fl (6.2-12.0); Monocyte# 0.53 X10^3/uL; Monocyte% 6.8 % (0-10); NRBC Flagged by Analyzer 0 % (0-5); Neutrophil # 6.67 X10^3/uL (2.7-7.7); Neutrophil % 85.5 % (47-70); POSITIVE DIFFERENTIAL YES; POSITIVE MORPHOLOGY YES; Platelet Count 220 K/mm3 (150-450); RBC Distribution Width CV 20.7 % (11.6-14.6); RBC Distribution Width SD 71.5 fl (35.1-43.9); White Blood Count 7.8 K/mm3 (4.4-11.0)
[2024-06-29 07:45] LABS: Differential Indicated SCAN CRITERIA MET
[2024-06-29 07:48] LABS: Anion Gap 9 (5-15); BUN 43 mg/dL (7-18); BUN/Creat Ratio 7.3 RATIO (10-20); Calcium,Total 8.9 mg/dL (8.5-10.1); Chloride 103 mmol/L (98-107); Creatinine, Serum 5.89 mg/dL (0.55-1.02); EST Glomerular Filtration Rate 8 mL/min (>60); Est Glom Filt Rate - Afr Amer 9 mL/min (>60); Estimated Creatinine Clearance 9.69 ml/min; Glucose 113 mg/dL (74-106); Potassium 5.2 mmol/L (3.5-5.1); Sodium Level 135 mmol/L (136-145)
--- NOTE | 2024-06-29 10:56 | NURSING ---
This Rn called into Room by Kourtney Keane RN as pt spo2 was 76% on 6L of HighFlow and pt was working to breathe. Pt is mouth breathing. Ms. Carrillo's fingers are warm and a different spo2 monitor was put on pt and was reading 78%. This RN increased 02 to 10L on the High Flow. REspirations 70/min. This RN had Respiratory called and Dominique came to see pt. This RN and Dominique agreed it would be better to put pt on Airvow as spo2 was 88% on the 10L HF then w. 70 resp/min still. Airvo Applied and spo2 on the monitor was reading 98% in the room and has maintained 98% on the monitor out here at the nurses station. Dr[facility].
[2024-06-29] MEDS: oxyCODONE 5 MG Tablet PO ×3 (11:09→21:44)
[2024-06-29 11:10] LABS: Differential Comment SCANNED
[2024-06-29] MEDS: Aspirin 81 MG TAB.CHEW PO (11:10)
[2024-06-29] MEDS: Sucralfate 1 GM Tablet PO ×2 (11:10→19:09)
[2024-06-29] MEDS: Lactobacillis Acidophilus 1 CAP PO ×2 (11:10→20:04)
[2024-06-29] MEDS: Carvedilol 25 MG Tablet PO ×2 (11:10→20:05)
[2024-06-29] MEDS: Folic Acid 1 MG Tablet PO (11:10)
[2024-06-29] MEDS: Pantoprazole Sodium 40 MG Tablet PO ×2 (11:10→19:13)
[2024-06-29 11:11] LABS: Anisocytosis 2+
[2024-06-29] MEDS: Paroxetine 20 MG Tablet PO (11:11)
[2024-06-29] MEDS: Calcitriol 0.25 MCG Capsule 0.5 MCG PO (11:11)
[2024-06-29] MEDS: buPROPion (XL) 150 MG TABLET.XL PO (11:11)
[2024-06-29] MEDS: amLODIPine 5 MG Tablet PO (11:11)
[2024-06-29] MEDS: Linezolid 600 MG 600 MG/300 ML BAG 200 MG IV (11:11)
[2024-06-29] MEDS: Ascorbic Acid 500 MG Tablet PO ×2 (11:11→20:06)
[2024-06-29 11:12] LABS: Hypochromasia 1+; Microcytosis 1+
[2024-06-29] MEDS: Calcium Acetate 667 MG Capsule PO ×2 (11:12→19:12)
--- NOTE | 2024-06-29 11:13 | CASEMGMT ---
Social Work- SW met with pt to f/u on preferred facility. Pt selected [facility] as F[facility]. [facility] as second choice. Pt states that her anxiety is very slightly improved; correlated with pain. DCA advised referral can be completed. ERIN Johnson
--- NOTE | 2024-06-29 11:40 | RAD_ITS ---
STUDY: X-RAY CHEST REASON FOR EXAM: Female, 59 years old. Hypoxia TECHNIQUE: Single AP portable view of the chest. COMPARISON: Comparison is made with prior study dated June 27, 2024. FINDINGS: A left-sided double-lumen catheter seen with the tip at the junction of the superior vena cava and right atrium. There now is evidence of vascular congestion and mild degree of CHF with bibasilar atelectasis. Blunting of the costophrenic angles. There is moderate cardiac enlargement. Normal mediastinum and elvie. Normal visualized pulmonary arteries. There is atherosclerotic tortuosity of the aortic arch and descending thoracic aorta. There are degenerative changes of the visualized thoracic spine. Normal visualized ribs, clavicles, and shoulders. There is no demonstrated abnormality of the visualized soft tissue structures of the upper abdomen. RAD/Chest 1 View (Portable) IMPRESSION: Cardiomegaly with evidence of CHF. Blunting of both costophrenic angles. Electronically Signed: Ronnie Saavedra MD at 11:55 EDT ,
--- NOTE | 2024-06-29 11:57 | NURSING ---
This RN got a hold of [employer] [employer] and she said Ms. Carrillo will be started on Dialysis around 1500 today.
--- NOTE | 2024-06-29 12:04 | CASEMGMT ---
Addendum entered by Rekha Moore 06/29/24 12:51: [facility] Rehka Moore DC Planning Asst. Original Note: Discharge Planning Referral sent via [facility] to [facility]. Rekha Moore DC Planning Asst.
--- NOTE | 2024-06-29 12:52 | CASEMGMT ---
Addendum entered by Rekha Moore 07/02/24 10:53: [facility] accepted. left for Darin @ to fax passr records. Rekha Moore DC Planning Asst. Original Note: Discharge Planning Referral sent to [facility]. Rekha Moore DC Planning Asst.
--- NOTE | 2024-06-29 13:38 | PN.RENAL_ITS ---
Subjective Subjective At the respiratory issues this morning. Currently on Airvo. Chest x-ray appears somewhat better. Objective Data Objective Data Vital Signs: Vital Signs Temp Pulse Resp BP Pulse Ox O2 Del Method O2 Flow Rate 98.4 F 82 28 H 158/84 H 94 Airvo 10 06/29/24 10:29 06/29/24 12:44 06/29/24 12:44 06/29/24 10:29 06/29/24 12:44 06/29/24 10:29 06/29/24 10:29 FiO2 50 06/29/24 12:44 Oxygen Flow Rate (L/min) 10 Oxygen Delivery Method Airvo Weight: 70.6 kg Body Mass Index (BMI) 27.6 Intake & Output: Intake and Output for Last 24 Hours 06/27/24 06/28/24 06/29/24 23:59 23:59 23:59 Intake Total 3592.85 / 3592.85 1910 / 1910 840 / 840 Output Total 200 / 400 800 / 800 100 / 100 Balance 3392.85 / 3192.85 1110 / 1110 740 / 740 Lab / Micro Data 06/29/24 07:08 06/29/24 07:08 Labs: Laboratory Results - last 24 hr 06/28/24 12:11: S.aureus Protein A PCR POSITIVE H, MRSA (PCR) Negative 06/28/24 17:04: POC Glucose 97 06/28/24 22:49: POC Glucose 103 06/29/24 06:53: POC Glucose 114 H 06/29/24 07:08: WBC 7.8, RBC 3.00 L, Hgb 8.4 L, Hct 28.8 L, MCV 96.0, MCH 28.0, MCHC 29.2 L, RDW Std Deviation 71.5 H, RDW Coeff of Fior 20.7 H, Plt Count 220, MPV 9.7, Immature Gran % (Auto) 0.600, Neut % (Auto) 85.5 H, Lymph % (Auto) 5.3 L, [place] % (Auto) 6.8, Eos % (Auto) 1.2, Baso % (Auto) 0.6, Absolute Neuts (auto) 6.7, Absolute Lymphs (auto) 0.41 L, Nucleated RBC % 0, Differential Comment SCANNED, Hypochromasia 1+, Anisocytosis 2+, Microcytosis 1+, Sodium 135 L, P otassium 5.2 H, Chloride 103, Carbon Dioxide 23.0, Anion Gap 9, BUN 43 H, C reatinine 5.89 H, Estim Creat Clear Calc 9.69, Est GFR (MDRD) Af Amer 9 L, Est GFR (MDRD) Non-Af 8 L, BUN/Creatinine Ratio 7.3 L, Glucose 113 H, Calcium 8.9 Micro: Microbiology 06/27/24 09:14 Wound - Right Foot Gram Stain - Final 06/27/24 09:14 Wound - Right Foot Wound Culture - Preliminary Staphylococcus aureus GPC Poss Enterococcus sp Gram positive elinor 06/28/24 12:00 Wound - Right Foot Gram Stain - Final 06/28/24 12:00 Wound - Right Foot Wound Culture - Preliminary Staphylococcus aureus 06/27/24 10:25 Urine, Catheterized Urine Culture - Final Culture exhibits no growth. Radiography Diagnostic Testing: Radiology Impression Chest X-Ray 06/29/24 11:40 IMPRESSION: Cardiomegaly with evidence of CHF. Blunting of both costophrenic angles. Electronically Signed: Ronnie Saavedra MD at 11:55 EDT , Physical Exam Narrative Alert awake oriented x 3 no obvious distress no pallor no icterus no JVD s1s2 no murmurs lungs clear abdomen soft no organomegaly no edema no cyanosis Assessment & Plan Assessment/Plan (1) ESRD (end stage renal disease) on dialysis: PLAN: On hemodialysis, Tuesday, Tuesday, Tuesday. Chest x-ray appears wet. Potassium borderline. Will plan for dialysis today, UF 3 to 4 L as tolerated. Anemia. Hemoglobin is on the lower side. Will likely start JORGE with dialysis next week. Lower extremity cellulitis/osteo. ID on consult.
--- NOTE | 2024-06-29 14:45 | PCM.PN.ID ---
Physical Exam Narrative Not feeling well, some dyspnea, foot hurts. No fever Const alert Constitutional Narrative: in pain General Appearance: cooperative Resp Effort and Inspection: uses accessory muscles Auscultation: diminished lung sounds Cardio regular rate and regular rhythm GI soft to palpation, non-tender and non-distended Skin Skin Narrative: feet wrapped ID ID: Route of nutrition/ use of supplements: [] Nutritional Intake: [] IV Site: [] Tirado Catheter: [] Assessment & Plan Assessment/Plan (1) ESRD (end stage renal disease) on dialysis: (2) Diabetic infection of right foot: PLAN: Wound cx and bcx reviewed. Wound cx with staph aureus, enterococcus-like, Gram positive organism. CT shows possible abscesses. Podiatry following. No plan for surgery at this time. Will change to dapto/erta, dosed with HD after discharge with weekly labs for 6 week course, stop date 08/08/24. ID followup in 2 weeks, wrote rx. Will follow
--- NOTE | 2024-06-29 15:08 | PCM.PROGNOTE ---
Subjective Subjective Patient seen and examined. She was complaining of generalized pain today. Review of systems at time of review was otherwise negative. However subsequently I was informed by patient's nurse that she had gotten increasingly short of breath and required BiPAP. She is due for dialysis today. Objective Data Objective Data Vital Signs: Vital Signs Temp Pulse Resp BP Pulse Ox O2 Del Method O2 Flow Rate 98.8 F 79 24 H 157/81 H 93 Airvo 10 06/29/24 14:25 06/29/24 14:25 06/29/24 14:25 06/29/24 14:25 06/29/24 14:25 06/29/24 14:25 06/29/24 10:29 FiO2 50 06/29/24 12:44 Oxygen Flow Rate (L/min) 10 Oxygen Delivery Method Airvo Weight: 220 lb 0.271 oz Body Mass Index (BMI) 38.9 Intake & Output: Intake and Output for Last 24 Hours 06/27/24 06/28/24 06/29/24 23:59 23:59 23:59 Intake Total 3592.85 / 3592.85 1910 / 1910 840 / 840 Output Total 200 / 400 800 / 800 100 / 100 Balance 3392.85 / 3192.85 1110 / 1110 740 / 740 Lab / Micro Data 06/29/24 07:08 06/29/24 07:08 Labs: Laboratory Results - last 24 hr 06/28/24 12:11: S.aureus Protein A PCR POSITIVE H, MRSA (PCR) Negative 06/28/24 17:04: POC Glucose 97 06/28/24 22:49: POC Glucose 103 06/29/24 06:53: POC Glucose 114 H 06/29/24 07:08: WBC 7.8, RBC 3.00 L, Hgb 8.4 L, Hct 28.8 L, MCV 96.0, MCH 28.0, MCHC 29.2 L, RDW Std Deviation 71.5 H, RDW Coeff of Fior 20.7 H, Plt Count 220, MPV 9.7, Immature Gran % (Auto) 0.600, Neut % (Auto) 85.5 H, Lymph % (Auto) 5.3 L, [place] % (Auto) 6.8, Eos % (Auto) 1.2, Baso % (Auto) 0.6, Absolute Neuts (auto) 6.7, Absolute Lymphs (auto) 0.41 L, Nucleated RBC % 0, Differential Comment SCANNED, Hypochromasia 1+, Anisocytosis 2+, Microcytosis 1+, Sodium 135 L, Potassium 5.2 H, Chloride 103, Carbon Dioxide 23.0, Anion Gap 9, BUN 43 H, Creatinine 5.89 H, Estim Creat Clear Calc 9.69, Est GFR (MDRD) Af Amer 9 L, Est GFR (MDRD) Non-Af 8 L, BUN/Creatinine Ratio 7.3 L, Glucose 113 H, Calcium 8.9 Micro: Microbiology 06/27/24 09:15 Blood Culture (Wb) - Left Forearm Blood Culture - Preliminary No growth in 48 hours. 06/27/24 09:14 Wound - Right Foot Gram Stain - Final 06/27/24 09:14 Wound - Right Foot Wound Culture - Preliminary Staphylococcus aureus GPC Poss Enterococcus sp Gram positive elinor 06/28/24 12:00 Wound - Right Foot Gram Stain - Final 06/28/24 12:00 Wound - Right Foot Wound Culture - Preliminary Staphylococcus aureus 06/27/24 10:25 Urine, Catheterized Urine Culture - Final Culture exhibits no growth. Radiography Diagnostic Testing: Radiology Impression Chest X-Ray 06/29/24 11:40 IMPRESSION: Cardiomegaly with evidence of CHF. Blunting of both costophrenic angles. Electronically Signed: Ronnie Saavedra MD at 11:55 EDT Reading Location ID and State: [address] [place] [address] , Service support , Physical Exam Const alert Constitutional Narrative: frail, weak, in mild distress due to pain. General Appearance: cooperative HEENT normocephalic, head/scalp atraumatic and moist oral mucous membranes Eyes PERRL and EOMs intact bilaterally Neck no lymphadenopathy and supple Lymph Lymphatic: no lymphadenopathy noted Resp normal respiratory effort, normal air movement and clear to auscultation bilaterally Resp Narrative: Mildly diminished breath sounds bibasilar. tachypneic, on Airvo Cardio regular rate, regular rhythm, S1 normal heart sound, S2 normal heart sound and no murmurs GI normal to inspection, nondistended, normoactive bowel sounds, soft to palpation, non-tender and non-distended Extremity Extremity Narrative: both feet wrapped in bandage Skin Skin Narrative: as under extremities Neuro CN's II-XII intact bilaterally, no focal motor deficits, no sensory deficits noted and deep tendon reflexes 2+ bilaterally Motor Exam: strength 5/5 throughout and general weakness Psych thought process normal and cooperative Activity / Motor Behavior: restless Assessment & Plan Assessment/Plan (1) Diabetic infection of right foot: (2) ESRD (end stage renal disease) on dialysis: (3) Debility: PLAN: Plan #Intractable back pain Patient does have chronic back pain. She states her oxycodone was stopped a couple of days ago in her senior living. She is not sure why. She says she is allergic to OxyContin but no oxycodone and is able to take the short acting oxycodone. She would like her medications restarted. P.o. Tylenol, p.o. oxycodone and IV morphine as needed for pain PT OT on board. Fall precautions. #Right lower extremity diabetic foot cellulitis, concern of osteomyelitis She did have recent corrective surgery for neuropathic ulcerations of both feet due to short Achilles tendon of both right and left ankles. She says she went to the wound care yesterday and it was dressed. She is still however having increased discharge from the foot. Is also erythematous and tender. She has a similar ulcer on the left foot but is not as erythematous and tender discharge in the past. X-ray of the right foot showed diffuse lateral soft tissue swelling and possible ulceration suggestive of osteomyelitis at the distal tarsometatarsal joint. on IV linezolid and meropenem in light of her allergy to penicillins and vancomycin. Per podiatry, no concerns for acute osteomyelitis at this time. Wounds were debrided at the bedside. Blood cultures and wound cultures ordered ID ordered left lower extremity CT which showed findings suggestive of a Charcot deformity of the foot with soft tissue swelling and 3 focal areas of fluid collection with no evidence of necrotizing fasciitis. Per podiatry, to be nonweightbearing with continued follow-up in the wound care center on a weekly basis. To have Dakin's wet-to-dry dressings to all wound sites bilaterally with overlying dry sterile dressing and [place] bandage for compression on a daily basis. #Acute hypoxic respiratory failure likely due to fluid overload Patient required Airvo today after she got more acutely short of breath. Chest x-ray showed evidence of fluid overload. She is due for dialysis today which should help with the fluid overload. Titrate oxygen to maintain saturation above 90%. Breathing treatments bronchodilators. #ESRD: On dialysis Wednesdays and Fridays. Nephrology consulted. #History of anemia due to bleeding peptic ulcers: On pantoprazole. #Type 2 diabetes mellitus with neuropathy: On Lantus. Insulin sliding scale. Accu-Cheks ACHS. #Depression with anxiety: Continue antidepressants #Hyperlipidemia: On statin #GERD: On PPI DVT prophylaxis: SCDs. CODE STATUS: Full code Disposition: For DC back to her senior living facility when she is medically stable. Charges/Coding Visit Charges Inpatient E&M: 45497 Subs Hosp L3
[2024-06-29] MEDS: 0.9% Normal Saline 1,000 ML IV.SOLN. 1000 ML OPERA.SITE (15:48)
[2024-06-29] MEDS: PureFlow B 2K Dialysis Soln 1 BAG 6 BAG PF (16:32)
[2024-06-29 17:02] LABS: Bedside Glucose 97 mg/dL (74-106)
[2024-06-29] MEDS: Heparin 10,000 UNITS/10 ML Vial IV (18:15)
[2024-06-29] MEDS: 0.9% Saline Lock 10 ML Syringe IV (18:15)
[2024-06-29] MEDS: NORMAL SALINE 0.9% IV (19:07)
[2024-06-29] MEDS: DAPTOMYCIN IV (19:07)
[2024-06-29 19:47] LABS: Bedside Glucose 94 mg/dL (74-106)
[2024-06-29] MEDS: hydrALAZINE 50 MG Tablet PO (20:04)
[2024-06-29] MEDS: Pramipexole Di-HCl 0.125 MG Tablet PO (20:05)
[2024-06-29] MEDS: Atorvastatin Calcium 40 MG Tablet PO (20:05)
[2024-06-29] MEDS: MELATONIN 3 MG TABLET PO (21:43)
[2024-06-29] MEDS: Acetaminophen 325 MG Tablet 650 MG PO (21:44)
[2024-06-29] MEDS: DiphenhydrAMINE 25 MG Capsule PO (23:04)
[2024-06-29 23:08] LABS: Bedside Glucose 124 mg/dL (74-106)
[2024-06-30] VITALS (17 sets, daily range): BP systolic 126–148; BP diastolic 51–70; PULSE 66–84; RESP 18–45; TEMP 36.7–36.9; O2SAT 92–99
[2024-06-30] MEDS: oxyCODONE 5 MG Tablet PO ×2 (05:29→11:25)
[2024-06-30] MEDS: Acetaminophen 325 MG Tablet 650 MG PO ×2 (05:30→20:07)
[2024-06-30] MEDS: Heparin Injection (Vial) 5,000 UNIT/ML VIAL 5000 UNIT SC ×3 (05:31→20:07)
[2024-06-30] MEDS: Sucralfate 1 GM Tablet PO ×3 (05:32→15:53)
[2024-06-30] MEDS: Levothyroxine 25 MCG TABLET PO (05:32)
[2024-06-30] MEDS: hydrALAZINE 50 MG Tablet PO ×3 (05:32→20:08)
[2024-06-30 05:39] LABS: Absolute Lymphocyte Count 0.86 X10^3/uL (0.83-4.51); Absolute Neutrophil Count 3.9 X10^3/uL (2.0-7.7); Basophil# 0.05 X10^3/uL; Basophil% 0.9 % (0-1); Eosinophil# 0.33 X10^3/uL; Eosinophils% 5.7 % (0-5); Hematocrit 27.7 % (37-47); Hemoglobin 8.3 g/dL (12.0-15.0); Lymphocyte # 0.86 X10^3/ul (0.83-4.51); Lymphocyte % 14.9 % (19-41); Mean Corpuscular Hgb 28.3 pg (27.0-32.0); Mean Corpuscular Volume 94.5 fL (81-99); Mean Platelet Vol. 9.7 fl (6.2-12.0); Monocyte# 0.61 X10^3/uL; Monocyte% 10.5 % (0-10); NRBC Flagged by Analyzer 0 % (0-5); Neutrophil % 67.3 % (47-70); POSITIVE MORPHOLOGY YES; Platelet Count 214 K/mm3 (150-450); RBC Distribution Width CV 20.6 % (11.6-14.6); RBC Distribution Width SD 70.6 fl (35.1-43.9); Red Blood Count 2.93 M/mm3 (4.2-5.4); White Blood Count 5.8 K/mm3 (4.4-11.0)
[2024-06-30 05:46] LABS: Differential Indicated SCAN CRITERIA MET
[2024-06-30 06:01] LABS: Anion Gap 7 (5-15); BUN 29 mg/dL (7-18); BUN/Creat Ratio 6.3 RATIO (10-20); Chloride 102 mmol/L (98-107); Creatinine, Serum 4.57 mg/dL (0.55-1.02); EST Glomerular Filtration Rate 10 mL/min (>60); Est Glom Filt Rate - Afr Amer 13 mL/min (>60); Estimated Creatinine Clearance 15.15 ml/min; Glucose 83 mg/dL (74-106); Potassium 4.2 mmol/L (3.5-5.1); Sodium Level 135 mmol/L (136-145)
[2024-06-30 06:20] LABS: Bedside Glucose 72 mg/dL (74-106)
[2024-06-30 06:51] LABS: Anisocytosis RARE
[2024-06-30] MEDS: Calcium Acetate 667 MG Capsule PO ×3 (09:04→17:55)
[2024-06-30] MEDS: Aspirin 81 MG TAB.CHEW PO (09:04)
[2024-06-30] MEDS: Lactobacillis Acidophilus 1 CAP PO ×2 (09:05→20:10)
[2024-06-30] MEDS: buPROPion (XL) 150 MG TABLET.XL PO (09:05)
[2024-06-30] MEDS: Ascorbic Acid 500 MG Tablet PO ×2 (09:05→20:08)
[2024-06-30] MEDS: Ferrous Sulfate 325 MG Tablet PO (09:05)
[2024-06-30] MEDS: Folic Acid 1 MG Tablet PO (09:07)
[2024-06-30] MEDS: Pantoprazole Sodium 40 MG Tablet PO ×2 (09:08→17:55)
[2024-06-30] MEDS: Nepro with Carbsteady 237 ML Liquid 120 ML PO ×2 (11:20→17:54)
[2024-06-30] MEDS: Carvedilol 25 MG Tablet PO ×2 (11:21→20:07)
[2024-06-30] MEDS: amLODIPine 5 MG Tablet PO (11:23)
[2024-06-30] MEDS: Paroxetine 20 MG Tablet PO (11:25)
--- NOTE | 2024-06-30 12:33 | CT_ITS ---
INDICATION: shortness of breath EXAMINATION: CT CHEST WITHOUT CONTRAST - CT Chest W/O Contrast Injection TECHNIQUE: Helically acquired images were obtained of the chest. The protocol utilizes one or more of the following dose reduction techniques: automated exposure control, adjustment of mA and/or kV according to patient size,and/or use of iterative reconstruction technique. IV Contrast dosage and agent: None. RADIATION DOSAGE (If Supplied By Facility): CTDIvol = ( 16.94 ) mGy, DLP = ( 516.28 ) mGycm COMPARISON: Chest x-ray of 06/29/2024 FINDINGS: LUNGS, PLEURA AND LARGE AIRWAYS: Bilateral lower lobes infiltrates and atelectatic changes. Pneumonic process cannot be excluded. Small bilateral pleural effusions. No pneumothorax. THYROID: No thyroid lesions. HEART AND PERICARDIUM: Mild cardiomegaly. No evidence of pericardial effusion. No pericardial effusion. CORONARY ARTERIES: Coronary artery calcification is seen. VESSELS: Thoracic aorta is not dilated. MEDIASTINUM AND BRENDA: Prominent mediastinal nodes in the anterior mediastinum and aorta pulmonic window. Enlarged left hilar nodes. Esophagus is unremarkable. No hiatal hernia. UPPER ABDOMEN: No acute pathology. Partially visualized densities in the stomach could reflect ingested materials. BONES: Partially visualized erosion of the lower thoracic spine with pedicle screws and plate. CT/Chest without Contrast IMPRESSION: 1. Bilateral lower lobes infiltrates/atelectasis. Mild pneumonic process cannot be excluded. 2. Mediastinal and left hilar adenopathy could be reactive. 3. Small bilateral pleural effusions. Electronically Signed: Cirilo Kuo MD at 15:00 EDT ,
--- NOTE | 2024-06-30 12:35 | PN_ITS ---
Subjective Subjective Patient seen and examined. She is lethargic. She remains on Airvo. She did have dialysis yesterday and today shows down to her dry weight after the fluids were taken off. However she still remains on Airvo and is on 4 to 5 L/min. She denies any cough, chest pain, palpitations, dizziness, nausea vomiting or any other symptoms. Review of systems otherwise negative. Objective Data Objective Data Vital Signs: Vital Signs Temp Pulse Resp BP Pulse Ox O2 Del Method O2 Flow Rate 98.4 F 73 20 H 134/67 H 96 Airvo 45 06/30/24 11:20 06/30/24 11:20 06/30/24 11:20 06/30/24 11:20 06/30/24 11:20 06/30/24 11:20 06/30/24 11:20 FiO2 40 06/30/24 07:14 Oxygen Flow Rate (L/min) 45 Oxygen Delivery Method Airvo Weight: 225 lb 14.17 oz Body Mass Index (BMI) 40.0 Intake & Output: Intake and Output for Last 24 Hours 06/28/24 06/29/24 06/30/24 23:59 23:59 23:59 Intake Total 1910 / 1910 1258 / 1258 Output Total 800 / 800 4150 / 4150 Balance 1110 / 1110 -2892 / -2892 Lab / Micro Data 06/30/24 05:10 06/30/24 05:10 Labs: Laboratory Results - last 24 hr 06/29/24 10:58: POC Glucose 97 06/29/24 19:11: POC Glucose 94 06/29/24 20:10: POC Glucose 124 H 06/30/24 05:10: WBC 5.8, RBC 2.93 L, Hgb 8.3 L, Hct 27.7 L, MCV 94.5, MCH 28.3, MCHC 30.0 L, RDW Std Deviation 70.6 H, RDW Coeff of Fior 20.6 H, Plt Count 214, MPV 9.7, Immature Gran % (Auto) 0.700, Neut % (Auto) 67.3, Lymph % (Auto) 14.9 L , [place] % (Auto) 10.5 H, Eos % (Auto) 5.7 H, Baso % (Auto) 0.9, Absolute Neuts (auto) 3.9, Absolute Lymphs (auto) 0.86, Nucleated RBC % 0, Anisocytosis RARE, S odium 135 L, Potassium 4.2, Chloride 102, Carbon Dioxide 26.0, Anion Gap 7, BUN 29 H, Creatinine 4.57 H, Estim Creat Clear Calc 15.15, Est GFR (MDRD) Af Amer 13 L, Est GFR (MDRD) Non-Af 10 L, BUN/Creatinine Ratio 6.3 L, Glucose 83, Calcium 9.0 06/30/24 05:34: POC Glucose 72 L Micro: Microbiology 06/28/24 12:00 Wound - Right Foot Gram Stain - Final 06/28/24 12:00 Wound - Right Foot Wound Culture - Final Meth. resistant Staph. aureus 06/27/24 09:14 Wound - Right Foot Gram Stain - Final 06/27/24 09:14 Wound - Right Foot Wound Culture - Final Meth. resistant Staph. aureus Vancomycin Resist. E. faecalis Gram positive elinor 06/27/24 09:15 Blood Culture (Wb) - Left Forearm Blood Culture - Preliminary No growth in 48 hours. 06/27/24 10:25 Urine, Catheterized Urine Culture - Final Culture exhibits no growth. Physical Exam Const alert and oriented x3 Constitutional Narrative: frail, lethargic Orientation / Consciousness: lethargic HEENT normocephalic, head/scalp atraumatic and moist oral mucous membranes Eyes PERRL and EOMs intact bilaterally Neck no lymphadenopathy and supple Lymph Lymphatic: no lymphadenopathy noted Resp normal respiratory effort, normal air movement and clear to auscultation bilaterally Resp Narrative: Mildly diminished breath sounds bibasilar. on Airvo at 45L/min Cardio regular rate, regular rhythm, S1 normal heart sound, S2 normal heart sound and no murmurs GI normal to inspection, nondistended, normoactive bowel sounds, soft to palpation, non-tender and non-distended Extremity Extremity Narrative: both feet wrapped in bandage Skin Skin Narrative: as under extremities Neuro CN's II-XII intact bilaterally, no focal motor deficits, no sensory deficits noted and deep tendon reflexes 2+ bilaterally Motor Exam: general weakness Psych Psych Narrative: lethargic, weak Assessment & Plan Assessment/Plan (1) Diabetic infection of right foot: (2) ESRD (end stage renal disease) on dialysis: (3) Debility: PLAN: Plan #Acute hypoxic respiratory failure * patient desaturated yesterday and had to be put on Airvo. CXR done showed evidence of fluid overload * IT was thought that her symptoms may be due to her needing dialysis; she was due for dialysis yesterday * she had dialysis much later in the day and says she had a full session of dialysis. However, she still remains on AirVo. 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 * she remains on IV meropenem and linezolid, which would take care of any occult pneumonia * will hold all narcotics and sedative meds * low threshold for transfer to PCU or ICU if she deteriorates #Intractable back pain * Patient does have chronic back pain. She states her oxycodone was stopped a couple of days ago in her long term. She is not sure why. She says she is allergic to OxyContin but no oxycodone and is able to take the short acting oxycodone. * She would like her medications restarted. * P.o. Tylenol, p.o. oxycodone and IV morphine as needed for pain. Hold narcotics due to patient being lethargic and requiring oxygen. * PT OT on board. Fall precautions. * #Right lower extremity diabetic foot cellulitis, concern of osteomyelitis * She did have recent corrective surgery for neuropathic ulcerations of both feet due to short Achilles tendon of both right and left ankles. * She says she went to the wound care yesterday and it was dressed. She is still however having increased discharge from the foot. Is also erythematous and tender. She has a similar ulcer on the left foot but is not as erythematous and tender discharge in the past. * X-ray of the right foot showed diffuse lateral soft tissue swelling and possible ulceration suggestive of osteomyelitis at the distal tarsometatarsal joint. * now on IV daptomycin and ertapenem per ID. * Per podiatry, no concerns for acute osteomyelitis at this time. Wounds were debrided at the bedside. * Blood cultures and wound cultures ordered: wound cultures growing MRSA. Blood cultures are negative so far. * ID ordered left lower extremity CT which showed findings suggestive of a Charcot deformity of the foot with soft tissue swelling and 3 focal areas of fluid collection with no evidence of necrotizing fasciitis. * Per podiatry, to be nonweightbearing with continued follow-up in the wound care center on a weekly basis. To have Dakin's wet-to-dry dressings to all wound sites bilaterally with overlying dry sterile dressing and [place] bandage for compression on a daily basis. * #ESRD: On dialysis Wednesdays and Fridays. Nephrology on board. #History of anemia due to bleeding peptic ulcers: On pantoprazole. #Type 2 diabetes mellitus with neuropathy: On Lantus. Insulin sliding scale. Accu-Cheks ACHS. #Depression with anxiety: Continue antidepressants #Hyperlipidemia: On statin #GERD: On PPI DVT prophylaxis: SCDs. CODE STATUS: Full code * Disposition: For DC back to her nursing home facility when she is medically stable. Charges/Coding Visit Charges Inpatient E&M: 17520 Subs Hosp L3
[2024-06-30 12:43] LABS: Bedside Glucose 87 mg/dL (74-106)
[2024-06-30] MEDS: Furosemide 40 MG/4 ML Vial IV ×2 (13:04→17:56)
[2024-06-30] MEDS: 0.9% Saline Lock 10 ML Syringe IV ×2 (13:05→17:57)
[2024-06-30 13:55] LABS: Allen Test Positive; Base Excess 0 mmol/L (-2 to +2); Bicarbonate 24.5 mmol/L (22-26); Blood Gas Specimen Type ART; Mode Not entered; O2 Delivery Device CPAP; PO2 90 mmHG (75-100); SITE L Radial; SO2 97 % (95-99); Total Carbon Dioxide 26 mmol/L; pCO2 38.2 mmHg (35-45); pH 7.41 (7.35-7.45)
[2024-06-30] MEDS: Ertapenem Sod 0.5 GM in 0.9% Normal Saline (50mL Bag) 50 ML IV (16:02)
--- NOTE | 2024-06-30 16:33 | PCM.PN.REN ---
Subjective Subjective Follow-up end-stage renal disease Had CT scan of the chest earlier today Overall feels better, down to 2 L of nasal cannula Objective Data Objective Data Vital Signs: Vital Signs Temp Pulse Resp BP Pulse Ox O2 Del Method O2 Flow Rate 98.0 F 70 18 126/70 H 99 High Flow 4 06/30/24 15:49 06/30/24 15:51 06/30/24 15:49 06/30/24 15:49 06/30/24 15:49 06/30/24 15:49 06/30/24 15:49 FiO2 40 06/30/24 13:50 Oxygen Flow Rate (L/min) 4 Oxygen Delivery Method High Flow Weight: 102.46 kg Body Mass Index (BMI) 40.0 Intake & Output: Intake and Output for Last 24 Hours 06/28/24 06/29/24 06/30/24 23:59 23:59 23:59 Intake Total 1910 / 1910 1258 / 1258 120 / 120 Output Total 800 / 800 4150 / 4150 Balance 1110 / 1110 -2892 / -2892 100 / 100 Lab / Micro Data 06/30/24 05:10 06/30/24 05:10 Labs: Laboratory Results - last 24 hr 06/29/24 10:58: POC Glucose 97 06/29/24 19:11: POC Glucose 94 06/29/24 20:10: POC Glucose 124 H 06/30/24 05:10: WBC 5.8, RBC 2.93 L, Hgb 8.3 L, Hct 27.7 L, MCV 94.5, MCH 28.3, MCHC 30.0 L, RDW Std Deviation 70.6 H, RDW Coeff of Fior 20.6 H, Plt Count 214, MPV 9.7, Immature Gran % (Auto) 0.700, Neut % (Auto) 67.3, Lymph % (Auto) 14.9 L, [place] % (Auto) 10.5 H, Eos % (Auto) 5.7 H, Baso % (Auto) 0.9, Absolute Neuts (auto) 3.9, Absolute Lymphs (auto) 0.86, Nucleated RBC % 0, Anisocytosis RARE, Sodium 135 L, Potassium 4.2, Chloride 102, Carbon Dioxide 26.0, Anion Gap 7, BUN 29 H, Creatinine 4.57 H, Estim Creat Clear Calc 15.15, Est GFR (MDRD) Af Amer 13 L, Est GFR (MDRD) Non-Af 10 L, BUN/Creatinine Ratio 6.3 L, Glucose 83, Calcium 9.0 06/30/24 05:34: POC Glucose 72 L 06/30/24 11:29: POC Glucose 87 Micro: Microbiology 06/28/24 12:00 Wound - Right Foot Gram Stain - Final 06/28/24 12:00 Wound - Right Foot Wound Culture - Final Meth. resistant Staph. aureus 06/27/24 09:14 Wound - Right Foot Gram Stain - Final 06/27/24 09:14 Wound - Right Foot Wound Culture - Final Meth. resistant Staph. aureus Vancomycin Resist. E. faecalis Gram positive elinor 06/27/24 09:15 Blood Culture (Wb) - Left Forearm Blood Culture - Preliminary No growth in 48 hours. 06/27/24 10:25 Urine, Catheterized Urine Culture - Final Culture exhibits no growth. ABG Data ABG results: ABG 06/30/24 13:51 Specimen Type ART Sample Site L Radial pH 7.41 Bicarbonate Actual 24.5 Total CO2 26 Base Excess 0 O2 Saturation 97 O2 % 40.0 ABG pCO2 38.2 ABG pO2 90 Gary Test Positive O2 Delivery Device CPAP Vent Mode Not entered Radiography Diagnostic Testing: Radiology Impression Chest CT 06/30/24 12:33 IMPRESSION: 1. Bilateral lower lobes infiltrates/atelectasis. Mild pneumonic process cannot be excluded. 2. Mediastinal and left hilar adenopathy could be reactive. 3. Small bilateral pleural effusions. Electronically Signed: Cirilo Kuo MD at 15:00 EDT , Physical Exam Narrative Alert awake oriented x 3 no obvious distress no pallor no icterus no JVD s1s2 no murmurs lungs clear abdomen soft no organomegaly no edema no cyanosis Assessment & Plan Assessment/Plan (1) ESRD (end stage renal disease) on dialysis: PLAN: On hemodialysis, Tuesday, Tuesday, Tuesday. -Had hemodialysis yesterday tolerated well -Access is a left tunneled dialysis catheter -Has CT scan of the chest earlier today no overtly volume overload -Next Allises session will be Tuesday.
[2024-06-30 17:00] LABS: Bedside Glucose 123 mg/dL (74-106)
[2024-06-30] MEDS: DAKIN'S SOL HALF STRENGTH (=0.25%) TOPICAL (17:57)
[2024-06-30] MEDS: MELATONIN 3 MG TABLET PO (20:06)
[2024-06-30] MEDS: DiphenhydrAMINE 25 MG Capsule PO (20:06)
[2024-06-30] MEDS: Atorvastatin Calcium 40 MG Tablet PO (20:09)
[2024-06-30] MEDS: Pramipexole Di-HCl 0.125 MG Tablet PO (20:10)
[2024-06-30 22:34] LABS: Bedside Glucose 101 mg/dL (74-106)
--- NOTE | 2024-06-30 23:38 | PCMCONS.TICU ---
HPI Consult Data Date of Consult: 07/01/24 HPI Narrative HPI Narrative: DIONY ROCHA, is a 59 F who presents [facility] Medical History Non-pressure chronic ulcer of right ankle with necrosis of muscle Non-pressure chronic 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 layer exposed Non-pressure chronic ulcer of other part of left foot with fat layer exposed Non-pressure chronic ulcer of left ankle with necrosis of muscle Adverse effect of synthetic cannabinoids, initial encounter [place] coma scale score 13-15, at arrival to emergency department Acute alteration in mental status ESRD (end stage renal disease) on dialysis Short Achilles tendon (acquired), left ankle Short Achilles tendon (acquired), right ankle Acquired cavovarus deformity of left foot Acquired cavovarus deformity of right foot Type 2 diabetes mellitus with diabetic polyneuropathy Adult failure to thrive Debility Charcot's joint, right ankle and foot Charcot's joint, left ankle and foot Drowsiness Mental status, decreased Carotid artery stenosis MSSA bacteremia ESRD on hemodialysis Osteomyelitis Anemia in chronic illness Type 2 diabetes mellitus Foot osteomyelitis, left Chronic renal disease, stage 4, severely decreased glomerular filtration rate (GFR) between 15-29 mL/min/1.73 square meter Acute on chronic anemia Chronic ulcer of right foot with necrosis of bone Chronic kidney disease, stage 4 (severe) Diabetes mellitus with diabetic polyneuropathy Diabetic foot ulcers Chronic kidney disease, stage 3b Cellulitis Acute lumbar radiculopathy Essential hypertension Adult failure to thrive COVID-19 (08/28/21) Chronic ulcer of right leg with fat layer exposed Ulcer of left foot with fat layer exposed Chronic ulcer of right foot with fat layer exposed Hyperparathyroidism, secondary renal Iron deficiency anemia Bilateral edema of lower extremity Chronic foot pain Charcot's joint of right foot Diabetes Non-smoker Myocardial infarct Hypertension TIA (transient ischemic attack) Amputation foot, bilat 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 Ulcer of left foot with necrosis of muscle Ulcer of left foot with muscle involvement without evidence of necrosis Anxiety and depression Diabetic infection of left foot Delayed wound healing Non-compliance Diabetic polyneuropathy Ischemic cardiomyopathy Obesity (BMI 30.0-34.9) Acquired varus deformity of left foot Acquired varus deformity of right foot Atherosclerosis of [place] coronary artery of [place] heart without angina pectoris Hemoglobin A1c greater than 9.0% NSTEMI (non-ST elevated myocardial infarction) (09/20/18) GERD (gastroesophageal reflux disease) HLD (hyperlipidemia) Back pain, chronic RLS (restless legs syndrome) Home Medications ?Medication ?Instructions ?Recorded ?Last Taken ?Type paroxetine HCl 20 mg tablet 20 mg PO DAILY DEPRESSION 07/07/21 04/07/22 History bupropion HCl 150 mg 24 hr tablet, 150 mg PO DAILY mood 02/04/22 04/07/22 History extended release sennosides 8.6 mg-docusate sodium 2 tab PO BID PRN PRN Constipation 04/24/22 Unknown Rx 50 mg tablet (Stool #0 tabs Softener-Stimulant Laxative) ascorbic acid (vitamin C) 500 mg 500 mg PO BID supplement 05/05/22 Unknown History tablet (Vitamin C) ferrous sulfate 325 mg (65 mg 325 mg PO .three times a week 07/19/22 Unknown History iron) tablet anemia pantoprazole 40 mg tablet,delayed 40 mg PO BIDCM GERD 07/19/22 Unknown History release gabapentin 100 mg capsule 100 mg PO .COMPLEX PRN pain 11/26/23 Unknown History amlodipine 5 mg tablet 5 mg PO DAILY bp 12/16/23 Unknown History calcitriol 0.5 mcg capsule 0.5 mcg PO .COMPLEX on dialysis 12/16/23 Unknown History calcium acetate(phosphat bind) 667 676 mg PO TID is on dialysis 12/16/23 Unknown History mg capsule folic acid 800 mcg tablet 0.8 mg PO DAILY supplement 12/16/23 Unknown History levothyroxine 25 mcg tablet 25 mcg PO DAILY thyroid 12/16/23 Unknown History nitroglycerin 0.4 mg sublingual 0.4 mg sublingual Q5M chest pain 12/16/23 Unknown History tablet (Nitrostat) aspirin 81 mg capsule 81 mg PO DAILY blood thinner #30 12/26/23 Unknown Rx caps atorvastatin 40 mg tablet 40 mg PO DAILY cholesterol 03/18/24 06/26/24 History carvedilol 25 mg tablet 25 mg PO BID blood pressure 03/18/24 Unknown History acetaminophen 325 mg tablet 650 mg (2 x 325 mg) PO Q6H PRN PRN 05/21/24 Unknown Rx Pain 1-10 Or Fever>100.7 #0 tabs diphenhydramine HCl 25 mg capsule 25 mg PO Q6H PRN PRN Itching #0 05/21/24 Unknown Rx (Banophen) caps hydralazine 50 mg tablet 50 mg PO TID bp #0 tabs 05/21/24 Unknown Rx insulin lispro 100 unit/mL See Protocol subcut TIDAC blood 05/21/24 Unknown Rx subcutaneous pen (Humalog KwikPen sugar #0 mL (U-100) Insulin) lorazepam 0.5 mg tablet 0.5 mg PO MoWeFr@1000 #0 tabs 05/21/24 Unknown Rx melatonin 3 mg tablet 3 mg PO QHS PRN PRN Insomnia #0 05/21/24 Unknown Rx tabs menthol 0.44 %-zinc oxide 20.6 % 1 applic topical BID skin care #0 05/21/24 Unknown Rx topical ointment (Calmoseptine) grams sucralfate 1 gram tablet 1 g PO TID@0700,1100,1600 05/21/24 Unknown Rx indigestion #0 tabs Lactobacillus rhamnosus GG 10 1 cap PO BID probiotic 06/04/24 Unknown History billion cell capsule (Culturelle) oxycodone 5 mg tablet 5 mg PO Q4H PRN pain 06/27/24 Unknown History daptomycin 500 mg intravenous 400 mg IV Q48 40 days #16 ea 06/29/24 Unknown Rx solution ertapenem 1 gram solution for 1 g IV DAILY #16 ea 06/29/24 Unknown Rx injection Allergy/AdvReac Type Severity Reaction Status Date / Time oxycodone (From OxyContin) Allergy sob Verified 06/27/24 08:27 Penicillins Allergy swelling Verified 06/27/24 08:27 in throat vancomycin Allergy Itching Verified 06/27/24 08:27 metronidazole AdvReac Nausea Verified 06/27/24 08:27 Family History Mother Diabetes CVA (cerebral vascular accident) Brother CAD (coronary artery disease) CABG X 3 Cancer testicular Diabetes Brother CAD (coronary artery disease) CABG X3 Diabetes Brother CAD (coronary artery disease) Stents Diabetes Sister CAD (coronary artery disease) CABG x 3 CVA (cerebral vascular accident) Diabetes Surgical History History of History of foot surgery History of bilateral carpal tunnel release History of rotator cuff surgery History of coronary artery stent placement (12/31/20) Social History household members: none number of children: 2 current occupational status: disabled Smoking Status: Never smoker alcohol intake: never substance use type: does not use caffeine: Yes Type: carbonated beverages Number of servings: 2 Objective Data Objective Data Vital Signs: Vital Signs Last response Temperature 36.7 C 06/30/24 20:03 Temperature Source Oral 06/30/24 20:03 Pulse Rate 74 06/30/24 20:08 Respiratory Rate 20 H 06/30/24 20:03 Respiratory Effort Normal, Non-Labored 06/30/24 20:39 Respiratory Depth Normal 06/30/24 20:39 Respiratory Pattern Normal 06/30/24 20:39 Blood Pressure 136/65 H 06/30/24 20:03 Blood Pressure Mean 88 06/30/24 20:03 Blood Pressure Source Monitor 06/30/24 20:03 Blood Pressure Position Semi-Fowlers 06/30/24 20:03 Blood Pressure Location Left Arm 06/30/24 20:03 Pulse Ox 94 06/30/24 20:39 Oxygen Delivery Method High Flow 06/30/24 20:39 Oxygen Flow Rate (L/min) 2 06/30/24 20:39 Fraction of Inspired Oxygen (FIO2) 40 06/30/24 13:50 I&O: I&O Last 24 Hours 06/29/24 06/30/24 06/30/24 23:59 11:59 23:59 Intake Total 958 / 1258 295 / 295 Output Total 4150 / 4150 Balance -3192 / -2892 275 / 275 I&O: Total Stay 06/27/24 08:23 thru 06/30/24 18:00 Intake Total 7055.85 Output Total 5170 Balance 1885.85 Current Meds Ordered / Administered: Current meds ordered / Administered Generic Name Dose Route Start Last Admin Trade Name Freq PRN Reason Stop Dose Admin Acetaminophen 650 mg 06/27/24 12:10 06/30/24 20:07 Acetaminophen 325 Mg Tablet PO 650 mg Q6H PRN PRN Administration Pain 1-10 Or Fever >100.7 Acetaminophen 650 mg 06/27/24 13:45 Acetaminophen 325 Mg Tablet PO Q6H PRN PRN Pain 1-10 Or Fever>100.7 Amlodipine Besylate 5 mg 06/28/24 10:00 06/30/24 11:23 Amlodipine 5 Mg Tablet PO 5 mg DAILY TAB Administration Protocol Ascorbic Acid 500 mg 06/27/24 22:00 06/30/24 20:08 Ascorbic Acid 500 Mg Tablet PO 500 mg BID TAB Administration Aspirin 81 mg 06/28/24 08:00 06/30/24 09:04 Aspirin 81 Mg Tab.Chew PO 81 mg DAILYCM TAB Administration Atorvastatin Calcium 40 mg 06/27/24 22:00 06/30/24 20:09 Atorvastatin Calcium 40 Mg Tablet PO 40 mg QHS TAB Administration Bupropion HCl 150 mg 06/28/24 10:00 06/30/24 09:05 Bupropion (Xl) 150 Mg Tablet.Xl PO 150 mg DAILY TAB Administration Calcitriol 0.5 mcg 06/29/24 10:00 06/29/24 11:11 Calcitriol 0.25 Mcg Capsule PO 0.5 mcg MoWeFr@1000 TAB Administration Calcium Acetate 667 mg 06/29/24 12:00 06/30/24 17:55 Calcium Acetate 667 Mg Capsule PO 667 mg TIDCM TAB Administration Carvedilol 25 mg 06/27/24 22:00 06/30/24 20:07 Carvedilol 25 Mg Tablet PO 25 mg BID TAB Administration Protocol Diphenhydramine HCl 25 mg 06/27/24 13:45 06/30/24 20:06 Diphenhydramine 25 Mg Capsule PO 25 mg Q6H PRN PRN Administration Itching Ferrous Sulfate 325 mg 06/28/24 08:00 06/30/24 09:05 Ferrous Sulfate 325 Mg Tablet PO 325 mg TuThSa@0800 TAB Administration Folic Acid 1 mg 06/28/24 08:00 06/30/24 09:07 Folic Acid 1 Mg Tablet PO 1 mg BREAKFAST TAB Administration Furosemide 40 mg 06/30/24 12:35 06/30/24 17:56 Furosemide 40 Mg/4 Ml Vial IV 40 mg BIDLX TAB Administration Protocol Gabapentin 100 mg 06/27/24 13:45 Gabapentin 100 Mg Capsule PO MoWeFr@1000 PRN Pain Score 1-10 Glucagon 1 mg 06/27/24 15:44 Glucagon 1 Mg/Ml Syringe IM X1 PRN Hypoglycemia Protocol Heparin Sodium (Porcine) 5,000 unit 06/27/24 14:00 06/30/24 20:07 Heparin Injection (Vial) 5,000 Unit/Ml Vial SC 5,000 unit Q8 TAB Administration Hydralazine HCl 50 mg 06/27/24 14:00 06/30/24 20:08 Hydralazine 50 Mg Tablet PO 50 mg TID TAB Administration Protocol Dextrose 250 mls @ 0 mls/hr 06/27/24 15:44 Dextrose 10%-Water IV .Q0M PRN HYPOGLYCEMIA Protocol As Directed Daptomycin 400 mg/ Sodium 58 mls @ 100 mls/hr 06/29/24 13:35 06/29/24 23:12 Chloride IV Infused Q48 TAB Infusion Ertapenem 0.5 gm/ Sodium 55 mls @ 100 mls/hr 06/30/24 16:00 06/30/24 16:35 Chloride IV Infused Q24@1600 TAB Infusion Insulin Human Lispro 0 unit 06/27/24 16:00 06/30/24 20:10 Insulin Lispro 100 Unit/Ml Insuln.Pen SC Not Given ACHS [facility] Protocol Levothyroxine Sodium 25 mcg 06/28/24 06:00 06/30/24 05:32 Levothyroxine 25 Mcg Tablet PO 25 mcg DAILY@0600 TAB Administration Lorazepam 0.5 mg 06/29/24 00:10 06/29/24 19:06 Lorazepam 0.5 Mg Tablet PO Not Given MoWeFr@1000 [facility] Melatonin 3 mg 06/27/24 13:45 06/30/24 20:06 Melatonin 3 Mg Tablet PO 3 mg QHS PRN PRN Administration Insomnia Nut Tx Impaired Renal Fxn/Lac-Reduc 120 ml 06/27/24 17:00 06/30/24 17:54 Nepro With Carbsteady 237 Ml Liquid PO 120 ml TIDCM TAB Administration Ondansetron HCl 4 mg 06/27/24 12:10 Ondansetron 4 Mg/2 Ml Vial IV Q8H PRN PRN NAUSEA/VOMITING Oxycodone HCl 5 mg 06/27/24 13:45 06/30/24 11:25 Oxycodone 5 Mg Tablet PO 5 mg Q4H PRN PRN Administration Pain Score 1-10 Pantoprazole Sodium 40 mg 06/27/24 17:00 06/30/24 17:55 Pantoprazole Sodium 40 Mg Tablet PO 40 mg BIDCM TAB Administration Paroxetine HCl 20 mg 06/28/24 10:00 06/30/24 11:25 Paroxetine 20 Mg Tablet PO 20 mg DAILY TAB Administration Pramipexole Dihydrochloride 0.125 mg 06/27/24 23:57 06/30/24 20:10 Pramipexole Di-Hcl 0.125 Mg Tablet PO 0.125 mg QHS TAB Administration Senna/Docusate Sodium 2 tablet 06/27/24 13:45 Senna/Docusate Sodium 1 Tablet PO BID PRN PRN Constipation Sodium Chloride 10 - 40 ml 06/27/24 11:45 06/30/24 17:57 0.9% Saline Lock 10 Ml Syringe IV 10 ml UD PRN Administration SALINE FLUSH Sodium Hypochlorite 0 ml 06/30/24 10:00 06/30/24 17:57 Dakin's [place]ren[place] Half Strength (=0.25%) TOPICAL 0.25 % DAILY [facility] Administration Protocol Sucralfate 1 gm 06/27/24 16:00 06/30/24 15:53 Sucralfate 1 Gm Tablet PO 1 gm TID@0700,1100,1600 [facility] Administration Lab / Micro Data 07/01/24 10:50 07/01/24 10:50 Labs: Laboratory Results - last 24 hr 06/30/24 05:10: WBC 5.8, RBC 2.93 L, Hgb 8.3 L, Hct 27.7 L, MCV 94.5, MCH 28.3, MCHC 30.0 L, RDW Std Deviation 70.6 H, RDW Coeff of Fior 20.6 H, Plt Count 214, MPV 9.7, Immature Gran % (Auto) 0.700, Neut % (Auto) 67.3, Lymph % (Auto) 14.9 L, [place] % (Auto) 10.5 H, Eos % (Auto) 5.7 H, Baso % (Auto) 0.9, Absolute Neuts (auto) 3.9, Absolute Lymphs (auto) 0.86, Nucleated RBC % 0, Anisocytosis RARE, Sodium 135 L, Potassium 4.2, Chloride 102, Carbon Dioxide 26.0, Anion Gap 7, BUN 29 H, Creatinine 4.57 H, Estim Creat Clear Calc 15.15, Est GFR (MDRD) Af Amer 13 L, Est GFR (MDRD) Non-Af 10 L, BUN/Creatinine Ratio 6.3 L, Glucose 83, Calcium 9.0 06/30/24 05:34: POC Glucose 72 L 06/30/24 11:29: POC Glucose 87 06/30/24 15:56: POC Glucose 123 H 06/30/24 20:02: POC Glucose 101 Micro: Microbiology 06/28/24 12:00 Wound - Right Foot Gram Stain - Final 06/28/24 12:00 Wound - Right Foot Wound Culture - Final Meth. resistant Staph. aureus 06/27/24 09:14 Wound - Right Foot Gram Stain - Final 06/27/24 09:14 Wound - Right Foot Wound Culture - Final Meth. resistant Staph. aureus Vancomycin Resist. E. faecalis Gram positive elinor ABG Data ABG results: ABG 06/30/24 13:51 Specimen Type ART Sample Site L Radial pH 7.41 Bicarbonate Actual 24.5 Total CO2 26 Base Excess 0 O2 Saturation 97 O2 % 40.0 ABG pCO2 38.2 ABG pO2 90 Gary Test Positive O2 Delivery Device CPAP Vent Mode Not entered Imaging Radiology Impression Chest CT 06/30/24 12:33 IMPRESSION: 1. Bilateral lower lobes infiltrates/atelectasis. Mild pneumonic process cannot be excluded. 2. Mediastinal and left hilar adenopathy could be reactive. 3. Small bilateral pleural effusions. Electronically Signed: Cirilo Kuo MD at 15:00 EDT , Assessment and Plan . Assessment and plan: HPI 59 yo chronically ill woman w/ ESRD admitted 06/27/24 w/ pain in her LE. At presentation, breathing RA w/ pCXR unremarkable. Since admission, she has received IVF as well as multiple ABX for a chronic diabetic foot infection. She has required increasing amounts of supplemental O2. HHFNC on 06/29/24. F/U radiograph reveals increasing pulmonary edema. She underwent HD w/ significant UF. CT chest 06/30/24 reveals small effusions, modest bibasilar ATX, and subtle mosaic pattern of GGO. She receives HD M/W/F typically. She is currently breathing 4 LPM O2 at rest comfortably. Next HD scheduled Tuesday.. EXAM GEN appears chronically ill, NAD, she is tearful during encounter VS as above HEENT o/p clear NECK supple COR RRR CHEST basilar crackles ABD soft EXT minimal edema SKIN w/d HENRIQUE NF ASSESSMENT 1. Dyspnea/hypoxemia 2. ESRD 3. Pulmonary edema / effusions 4. Chronic diabetic foot infection - s/p debridement 5. DM / ASCVD 6. Polypharmacy TREATMENT PLAN -supplemental O2 as needed -HD w/ UF -IV ABX -sq UFH for PPX -sq insulin The entirety of this encounter was done via Telemedicine
[2024-07-01] VITALS (14 sets, daily range): BP systolic 135–152; BP diastolic 63–76; PULSE 68–74; RESP 18–20; TEMP 36.6–36.8; O2SAT 87–98
[2024-07-01] MEDS: Acetaminophen 325 MG Tablet 650 MG PO ×3 (02:38→20:05)
[2024-07-01] MEDS: 0.9% Saline Lock 10 ML Syringe IV ×4 (02:46→18:11)
[2024-07-01] MEDS: Ondansetron 4 MG/2 ML Vial IV ×2 (02:46→11:18)
[2024-07-01 03:07] LABS: Bedside Glucose 107 mg/dL (74-106)
[2024-07-01] MEDS: Heparin Injection (Vial) 5,000 UNIT/ML VIAL 5000 UNIT SC ×3 (05:17→20:04)
[2024-07-01] MEDS: Levothyroxine 25 MCG TABLET PO (05:18)
[2024-07-01] MEDS: Sucralfate 1 GM Tablet PO ×3 (05:18→16:54)
[2024-07-01] MEDS: hydrALAZINE 50 MG Tablet PO ×3 (05:18→20:03)
[2024-07-01 07:10] LABS: Bedside Glucose 113 mg/dL (74-106)
[2024-07-01] MEDS: Furosemide 40 MG/4 ML Vial IV ×2 (09:12→18:11)
[2024-07-01] MEDS: DAPTOMYCIN IV (10:38)
[2024-07-01] MEDS: NORMAL SALINE 0.9% IV (10:38)
[2024-07-01 11:17] LABS: Absolute Lymphocyte Count 0.52 X10^3/uL (0.83-4.51); Basophil# 0.04 X10^3/uL; Basophil% 0.8 % (0-1); Differential Indicated SCAN CRITERIA MET; Eosinophil# 0.32 X10^3/uL; Eosinophils% 6.1 % (0-5); Hematocrit 28.6 % (37-47); Hemoglobin 8.5 g/dL (12.0-15.0); Lymphocyte # 0.52 X10^3/ul (0.83-4.51); Lymphocyte % 9.9 % (19-41); Mean Corp Hgb Conc 29.7 g/dL (32-36); Mean Corpuscular Hgb 28.4 pg (27.0-32.0); Mean Corpuscular Volume 95.7 fL (81-99); Mean Platelet Vol. 9.9 fl (6.2-12.0); Monocyte# 0.36 X10^3/uL; Monocyte% 6.8 % (0-10); NRBC Flagged by Analyzer 0 % (0-5); Neutrophil # 3.99 X10^3/uL (2.7-7.7); Neutrophil % 75.8 % (47-70); POSITIVE DIFFERENTIAL YES; POSITIVE MORPHOLOGY YES; Platelet Count 259 K/mm3 (150-450); RBC Distribution Width CV 20.1 % (11.6-14.6); RBC Distribution Width SD 70.1 fl (35.1-43.9); Red Blood Count 2.99 M/mm3 (4.2-5.4); White Blood Count 5.3 K/mm3 (4.4-11.0)
[2024-07-01] MEDS: Calcium Acetate 667 MG Capsule PO ×2 (11:18→16:54)
[2024-07-01] MEDS: Carvedilol 25 MG Tablet PO ×2 (11:19→20:04)
[2024-07-01] MEDS: Paroxetine 20 MG Tablet PO (11:19)
[2024-07-01] MEDS: amLODIPine 5 MG Tablet PO (11:19)
[2024-07-01] MEDS: buPROPion (XL) 150 MG TABLET.XL PO (11:19)
[2024-07-01 11:22] LABS: Anion Gap 7 (5-15); BNP,B-Type NATRIURETIC PEPTIDE 1307.6 pg/mL (0-100); BUN 40 mg/dL (7-18); BUN/Creat Ratio 6.9 RATIO (10-20); Calcium,Total 8.9 mg/dL (8.5-10.1); Chloride 103 mmol/L (98-107); Creatinine, Serum 5.78 mg/dL (0.55-1.02); EST Glomerular Filtration Rate 8 mL/min (>60); Est Glom Filt Rate - Afr Amer 10 mL/min (>60); Estimated Creatinine Clearance 11.98 ml/min; Glucose 112 mg/dL (74-106); Potassium 4.7 mmol/L (3.5-5.1); Sodium Level 135 mmol/L (136-145)
[2024-07-01 11:49] LABS: Anisocytosis 1+
[2024-07-01 11:57] LABS: Bedside Glucose 97 mg/dL (74-106)
--- NOTE | 2024-07-01 13:16 | PN_ITS ---
Subjective Subjective Patient seen and examined. She had no active complaints. Her breathing has improved. She is now off Airvo and on 3L of oxygen by nasal canula. Review of systems is otherwise negative. Objective Data Objective Data Vital Signs: Vital Signs Temp Pulse Resp BP Pulse Ox O2 Del Method O2 Flow Rate 97.9 F 71 18 152/76 H 95 High Flow 3 07/01/24 09:05 07/01/24 09:05 07/01/24 09:05 07/01/24 09:05 07/01/24 10:30 07/01/24 10:30 07/01/24 10:30 FiO2 40 06/30/24 13:50 Oxygen Flow Rate (L/min) 3 Oxygen Delivery Method High Flow Weight: 225 lb 14.17 oz Body Mass Index (BMI) 40.0 Intake & Output: Intake and Output for Last 24 Hours 06/29/24 06/30/24 07/01/24 23:59 23:59 23:59 Intake Total 1258 / 1258 295 / 695 658 / 658 Output Total 4150 / 4150 275 / 275 Balance -2892 / -2892 275 / 475 383 / 383 Lab / Micro Data 07/01/24 10:50 07/01/24 10:50 Labs: Laboratory Results - last 24 hr 06/30/24 15:56: POC Glucose 123 H 06/30/24 20:02: POC Glucose 101 07/01/24 02:50: POC Glucose 107 H 07/01/24 06:26: POC Glucose 113 H 07/01/24 10:50: WBC 5.3, RBC 2.99 L, Hgb 8.5 L, Hct 28.6 L, MCV 95.7, MCH 28.4, MCHC 29.7 L, RDW Std Deviation 70.1 H, RDW Coeff of Fior 20.1 H, Plt Count 259, MPV 9.9, Immature Gran % (Auto) 0.600, Neut % (Auto) 75.8 H, Lymph % (Auto) 9.9 L, [place] % (Auto) 6.8, Eos % (Auto) 6.1 H, Baso % (Auto) 0.8, Absolute Neuts (auto) 4.0, Absolute Lymphs (auto) 0.52 L, Nucleated RBC % 0, Anisocytosis 1+, S odium 135 L, Potassium 4.7, Chloride 103, Carbon Dioxide 25.0, Anion Gap 7, BUN 40 H, Creatinine 5.78 H, Estim Creat Clear Calc 11.98, Est GFR (MDRD) Af Amer 10 L, Est GFR (MDRD) Non-Af 8 L, BUN/Creatinine Ratio 6.9 L, Glucose 112 H, Calcium 8.9, B-Natriuretic Peptide 1307.6 H 07/01/24 11:17: POC Glucose 97 Micro: Microbiology 06/28/24 12:00 Wound - Right Foot Gram Stain - Final 06/28/24 12:00 Wound - Right Foot Wound Culture - Final Meth. resistant Staph. aureus 06/27/24 09:14 Wound - Right Foot Gram Stain - Final 06/27/24 09:14 Wound - Right Foot Wound Culture - Final Meth. resistant Staph. aureus Vancomycin Resist. E. faecalis Gram positive elinor 06/27/24 09:15 Blood Culture (Wb) - Left Forearm Blood Culture - Preliminary No growth in 48 hours. 06/27/24 10:25 Urine, Catheterized Urine Culture - Final Culture exhibits no growth. ABG Data ABG results: ABG 06/30/24 13:51 Specimen Type ART Sample Site L Radial pH 7.41 Bicarbonate Actual 24.5 Total CO2 26 Base Excess 0 O2 Saturation 97 O2 % 40.0 ABG pCO2 38.2 ABG pO2 90 Gary Test Positive O2 Delivery Device CPAP Vent Mode Not entered Radiography Diagnostic Testing: Radiology Impression Chest CT 06/30/24 12:33 IMPRESSION: 1. Bilateral lower lobes infiltrates/atelectasis. Mild pneumonic process cannot be excluded. 2. Mediastinal and left hilar adenopathy could be reactive. 3. Small bilateral pleural effusions. Electronically Signed: Cirilo Kuo MD at 15:00 EDT , Physical Exam Const alert and oriented x3 Constitutional Narrative: more alert and communicative today General Appearance: cooperative HEENT normocephalic, head/scalp atraumatic and moist oral mucous membranes Eyes PERRL and EOMs intact bilaterally Neck no lymphadenopathy and supple Lymph Lymphatic: no lymphadenopathy noted Resp normal respiratory effort, normal air movement and clear to auscultation bilaterally Resp Narrative: Mildly diminished breath sounds bibasally, no wheezes or crackles. On 3L of oxygen. Off Airvo. Cardio regular rate, regular rhythm, S1 normal heart sound, S2 normal heart sound and no murmurs GI normal to inspection, nondistended, normoactive bowel sounds, soft to palpation, non-tender and non-distended Extremity Extremity Narrative: both feet wrapped in bandage Skin Skin Narrative: as under extremities Neuro CN's II-XII intact bilaterally, no focal motor deficits, no sensory deficits noted and deep tendon reflexes 2+ bilaterally Motor Exam: strength 5/5 throughout and general weakness Psych thought process normal and cooperative Psych Narrative: lethargic, weak Appearance: appropriate Activity / Motor Behavior: restless Mood & Affect: flat affect Assessment & Plan Assessment/Plan (1) Diabetic infection of right foot: (2) ESRD (end stage renal disease) on dialysis: (3) Debility: PLAN: Plan #Acute hypoxic respiratory failure * patient desaturated during this admission and had to be put on Airvo. CXR done showed evidence of fluid overload * IT was thought that her symptoms may be due to her needing dialysis; * she had dialysis much later in the day and says she had a full session of dialysis. However, she still remains on AirVo. It is unclear why she is on AirVo * CT chest without contrast showed bilateral lower lobes infiltrates/atelectasis with mediastinal left hilar adenopathy could be reactive, and small bilateral pleural effusions. * ABG was WNL * she remains on IV meropenem and linezolid, which would take care of any occult pneumonia * will hold all narcotics and sedative meds * being diuresed with IV lasix 40mg bid. * in cumulative positive balance by 2.268L. Continue diuresis. #Intractable back pain * Patient does have chronic back pain. She states her oxycodone was stopped a couple of days ago in her longterm. She is not sure why. She says she is allergic to OxyContin but no oxycodone and is able to take the short acting oxycodone. * She would like her medications restarted. * P.o. Tylenol, p.o. oxycodone and IV morphine as needed for pain. Hold narcotics due to patient being lethargic and requiring oxygen. * PT OT on board. Fall precautions. * #Right lower extremity diabetic foot cellulitis, concern of osteomyelitis * She did have recent corrective surgery for neuropathic ulcerations of both feet due to short Achilles tendon of both right and left ankles. * She says she went to the wound care yesterday and it was dressed. She is still however having increased discharge from the foot. Is also erythematous and tender. She has a similar ulcer on the left foot but is not as erythematous and tender discharge in the past. * X-ray of the right foot showed diffuse lateral soft tissue swelling and possible ulceration suggestive of osteomyelitis at the distal tarsometatarsal joint. * now on IV daptomycin and ertapenem per ID. * Per podiatry, no concerns for acute osteomyelitis at this time. Wounds were debrided at the bedside. * Blood cultures and wound cultures ordered: wound cultures growing MRSA. Blood cultures are negative so far. * ID ordered left lower extremity CT which showed findings suggestive of a Charcot deformity of the foot with soft tissue swelling and 3 focal areas of fluid collection with no evidence of necrotizing fasciitis. * Per podiatry, to be nonweightbearing with continued follow-up in the wound care center on a weekly basis. * To have Dakin's wet-to-dry dressings to all wound sites bilaterally with overlying dry sterile dressing and [place] bandage for compression on a daily basis. #ESRD: On dialysis Wednesdays and Fridays. Nephrology on board. #History of anemia due to bleeding peptic ulcers: On pantoprazole. #Type 2 diabetes mellitus with neuropathy: On Lantus. Insulin sliding scale. Accu-Cheks ACHS. #Depression with anxiety: Continue antidepressants #Hyperlipidemia: On statin #GERD: On PPI DVT prophylaxis: SCDs. CODE STATUS: Full code * Disposition: For DC back to her care home facility when she is medically stable. Charges/Coding Visit Charges Inpatient E&M: 31386 Subs Hosp L2
[2024-07-01] MEDS: Ertapenem Sod 0.5 GM in 0.9% Normal Saline (50mL Bag) 50 ML IV (16:54)
[2024-07-01] MEDS: Pantoprazole Sodium 40 MG Tablet PO (16:54)
[2024-07-01] MEDS: DAKIN'S SOL HALF STRENGTH (=0.25%) TOPICAL (16:54)
[2024-07-01 18:45] LABS: Bedside Glucose 89 mg/dL (74-106)
--- NOTE | 2024-07-01 18:54 | NURSING ---
This RN removed tylenol from [employer] and mirapex from pt's drawer. Meds scanned, however right before administering, pt became nauseous, so medications were wasted. Both medications undone on DEC.
[2024-07-01] MEDS: Lactobacillis Acidophilus 1 CAP PO (20:03)
[2024-07-01] MEDS: MELATONIN 3 MG TABLET PO (20:04)
[2024-07-01] MEDS: Pramipexole Di-HCl 0.125 MG Tablet PO (20:04)
[2024-07-01] MEDS: DiphenhydrAMINE 25 MG Capsule PO (20:04)
[2024-07-01] MEDS: Atorvastatin Calcium 40 MG Tablet PO (20:04)
[2024-07-01] MEDS: Ascorbic Acid 500 MG Tablet PO (20:04)
--- NOTE | 2024-07-01 22:00 | NURSING ---
Pt pulse ox beeping 85% on ra. Went into pt room to put 02 back on. Pt screaming at this nurse. Pt requesting narcotics. Informed pt the md said no more narcotics. I went to but back on. Pt tried to hit me. Pt said she was not going to wear it. Informed pt we can not make her. If she gets into distress call me. Pt verbally abusive to staff. Pt continues to yell and scream that she wants to leave
[2024-07-01 22:25] LABS: Bedside Glucose 107 mg/dL (74-106)
[2024-07-02] VITALS (15 sets, daily range): BP systolic 118–388; BP diastolic 60–85; PULSE 62–77; RESP 15–16; TEMP 36.5–36.8; O2SAT 92–100; BMI 38.1; BMI 37.8
--- NOTE | 2024-07-02 02:00 | NURSING ---
This RN went into patient's room to get vitals on patient. Patient screaming at staff and saying You can all fuck off if you're not here to give me Morphine. Patient educated on her respiratory drive and how Morphine decreases it. All narcotics currently on hold per MDs and patient made aware of that. Patient then told me to leave because you all are not helping me here. Educated patient that RN is here to get vitals and assess patient and she responded Fuck off.
--- NOTE | 2024-07-02 06:02 | NURSING ---
pt refusing to have vitals taken or to take any morning medications. Educated patient on importance of taking blood pressure medication but patient said No, leave now.
[2024-07-02 07:13] LABS: Absolute Lymphocyte Count 0.58 X10^3/uL (0.83-4.51); Basophil# 0.05 X10^3/uL; Basophil% 0.8 % (0-1); Eosinophil# 0.49 X10^3/uL; Eosinophils% 7.5 % (0-5); Hematocrit 27.9 % (37-47); Hemoglobin 8.4 g/dL (12.0-15.0); Lymphocyte # 0.58 X10^3/ul (0.83-4.51); Lymphocyte % 8.9 % (19-41); Mean Corp Hgb Conc 30.1 g/dL (32-36); Mean Corpuscular Hgb 28.4 pg (27.0-32.0); Mean Corpuscular Volume 94.3 fL (81-99); Mean Platelet Vol. 9.7 fl (6.2-12.0); Monocyte% 6.1 % (0-10); NRBC Flagged by Analyzer 0 % (0-5); Neutrophil # 4.96 X10^3/uL (2.7-7.7); Neutrophil % 76.1 % (47-70); POSITIVE DIFFERENTIAL YES; POSITIVE MORPHOLOGY YES; Platelet Count 303 K/mm3 (150-450); RBC Distribution Width CV 19.9 % (11.6-14.6); RBC Distribution Width SD 68.6 fl (35.1-43.9); Red Blood Count 2.96 M/mm3 (4.2-5.4); White Blood Count 6.5 K/mm3 (4.4-11.0)
[2024-07-02 07:44] LABS: Anion Gap 9 (5-15); BUN 48 mg/dL (7-18); BUN/Creat Ratio 7.2 RATIO (10-20); Calcium,Total 9.4 mg/dL (8.5-10.1); Chloride 103 mmol/L (98-107); Creatinine, Serum 6.63 mg/dL (0.55-1.02); EST Glomerular Filtration Rate 7 mL/min (>60); Est Glom Filt Rate - Afr Amer 8 mL/min (>60); Estimated Creatinine Clearance 10.45 ml/min; Glucose 98 mg/dL (74-106); Potassium 4.7 mmol/L (3.5-5.1); Sodium Level 136 mmol/L (136-145)
[2024-07-02 07:48] LABS: Differential Indicated SCAN CRITERIA MET
--- NOTE | 2024-07-02 09:02 | PN.HOSP_ITS ---
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 Objective Data Objective Data Vital Signs: Vital Signs Temp Pulse Resp BP Pulse Ox O2 Del Method O2 Flow Rate 36.6 C 70 16 140/61 H 94 High Flow 4 07/02/24 07:40 07/02/24 08:40 07/02/24 08:40 07/02/24 08:40 07/02/24 08:40 07/02/24 08:40 07/02/24 08:40 FiO2 40 06/30/24 13:50 Oxygen Flow Rate (L/min) 4 Oxygen Delivery Method High Flow Weight: 97.6 kg Body Mass Index (BMI) 38.1 Intake & Output: Intake and Output for Last 24 Hours 06/30/24 07/01/24 07/02/24 23:59 23:59 23:59 Intake Total 295 / 695 953 / 953 Output Total 20 / 220 525 / 525 Balance 275 / 475 428 / 428 Lab / Micro Data 07/02/24 06:50 07/02/24 06:20 Labs: Laboratory Results - last 24 hr 07/01/24 10:50: WBC 5.3, RBC 2.99 L, Hgb 8.5 L, Hct 28.6 L, MCV 95.7, MCH 28.4, MCHC 29.7 L, RDW Std Deviation 70.1 H, RDW Coeff of Fior 20.1 H, Plt Count 259, MPV 9.9, Immature Gran % (Auto) 0.600, Neut % (Auto) 75.8 H, Lymph % (Auto) 9.9 L, [place] % (Auto) 6.8, Eos % (Auto) 6.1 H, Baso % (Auto) 0.8, Absolute Neuts (auto) 4.0, Absolute Lymphs (auto) 0.52 L, Nucleated RBC % 0, Anisocytosis 1+, S odium 135 L, Potassium 4.7, Chloride 103, Carbon Dioxide 25.0, Anion Gap 7, BUN 40 H, Creatinine 5.78 H, Estim Creat Clear Calc 11.98, Est GFR (MDRD) Af Amer 10 L, Est GFR (MDRD) Non-Af 8 L, BUN/Creatinine Ratio 6.9 L, Glucose 112 H, Calcium 8.9, B-Natriuretic Peptide 1307.6 H 07/01/24 11:17: POC Glucose 97 07/01/24 16:49: POC Glucose 89 07/01/24 20:00: POC Glucose 107 H 07/02/24 06:20: Sodium 136, Potassium 4.7, Chloride 103, Carbon Dioxide 24.0, Anion Gap 9, BUN 48 H, Creatinine 6.63 H, Estim Creat Clear Calc 10.45, Est GFR (MDRD) Af Amer 8 L, Est GFR (MDRD) Non-Af 7 L, BUN/Creatinine Ratio 7.2 L, Glucose 98, Calcium 9.4 07/02/24 06:50: WBC 6.5, RBC 2.96 L, Hgb 8.4 L, Hct 27.9 L, MCV 94.3, MCH 28.4, MCHC 30.1 L, RDW Std Deviation 68.6 H, RDW Coeff of Fior 19.9 H, Plt Count 303, MPV 9.7, Immature Gran % (Auto) 0.600, Neut % (Auto) 76.1 H, Lymph % (Auto) 8.9 L, [place] % (Auto) 6.1, Eos % (Auto) 7.5 H, Baso % (Auto) 0.8, Absolute Neuts (auto) 5.0, Absolute Lymphs (auto) 0.58 L, Nucleated RBC % 0 Micro: Microbiology 06/28/24 12:00 Wound - Right Foot Gram Stain - Final 06/28/24 12:00 Wound - Right Foot Wound Culture - Final Meth. resistant Staph. aureus 06/27/24 09:14 Wound - Right Foot Gram Stain - Final 06/27/24 09:14 Wound - Right Foot Wound Culture - Final Meth. resistant Staph. aureus Vancomycin Resist. E. faecalis Gram positive elinor 06/27/24 09:15 Blood Culture (Wb) - Left Forearm Blood Culture - Preliminary No growth in 48 hours. 06/27/24 10:25 Urine, Catheterized Urine Culture - Final Culture exhibits no growth. Physical Exam Const alert and no apparent distress HEENT head/scalp atraumatic and moist oral mucous membranes Resp normal respiratory effort, no retractions, no use of accessory muscles and clear to auscultation bilaterally Cardio regular rate, regular rhythm, S1 normal heart sound and S2 normal heart sound Assessment & Plan Assessment/Plan (1) Acute respiratory failure with hypoxia: PLAN: Developed during hospitalization CT chest on 06/30 showed pulmonary edema v infiltrate. I reviewed and favor edema. Did require Airvo, but weaned down to 2L nc and now on room air. Improved after dialysis. CCM following. (2) Diabetic infection of right foot: PLAN: Seen by Dr. Julian on the and was debrided down to muscle and SQ tissue. All nonviable tissue was removed. No evidence of osteomyelitis at this time. ID following and plan for 6 weeks of daptomycin and ertapenem. (Stop date 08/08) Follow up with ID in 2 weeks. Follow up with podiatry. (3) ESRD (end stage renal disease) on dialysis: PLAN: On HD MWF. Nephrology following. PLAN: Plan chronic conditions * DM2: fair control. Not on Lantus despite previous physician documenting as such. On SSI * Hypothyroid: levothyroxine * GERD: PPI. VTE prophylaxis: SQ heparin. Charges/Coding Visit Charges Inpatient E&M: 89017 Subs Hosp L2
--- NOTE | 2024-07-02 09:26 | CASEMGMT ---
Dialysis Information Buffy Gimenez, needs to be there by 6:30a. Elijah Wyman provides transport. Rekha Moore DC Planning Asst.
[2024-07-02 09:37] LABS: Anisocytosis 1+
[2024-07-02] MEDS: 0.9% Normal Saline 1,000 ML IV.SOLN. 1000 ML OPERA.SITE (10:15)
[2024-07-02] MEDS: Heparin 10,000 UNITS/10 ML Vial IV (10:21)
--- NOTE | 2024-07-02 10:35 | WOUNDNOTE ---
wound photo: right foot
--- NOTE | 2024-07-02 10:36 | WOUNDNOTE ---
wound photo: right lateral foot
--- NOTE | 2024-07-02 10:36 | WOUNDNOTE ---
wound photo: left foot
--- NOTE | 2024-07-02 10:37 | WOUNDNOTE ---
wound photo: left lateral foot
--- NOTE | 2024-07-02 10:47 | CASEMGMT ---
Addendum entered by Georgia Williamson 07/02/24 15:11: Social Work- LUCRETIA completed LOC and submitted. ERIN Johnson Original Note: Social Work- [facility] accepted; pt advised. ERIN Johnson
--- NOTE | 2024-07-02 10:56 | PN.RENAL_ITS ---
<Statement entered by Angel Joel MD - 07/02/24 19:05> I have personally performed a face to face assessment of the patient and have reviewed the WILL Note. Subjective Subjective Seen and examined on hemodialysis today. Tolerating treatment well. No overnight events. Objective Data Objective Data Vital Signs: Vital Signs Temp Pulse Resp BP Pulse Ox O2 Del Method O2 Flow Rate 97.9 F 73 16 140/64 H 100 High Flow 4 07/02/24 07:40 07/02/24 10:50 07/02/24 10:50 07/02/24 10:50 07/02/24 10:50 07/02/24 10:50 07/02/24 10:50 FiO2 40 06/30/24 13:50 Oxygen Flow Rate (L/min) 4 Oxygen Delivery Method High Flow Weight: 97.6 kg Body Mass Index (BMI) 38.1 Intake & Output: Intake and Output for Last 24 Hours 06/30/24 07/01/24 07/02/24 23:59 23:59 23:59 Intake Total 295 / 695 953 / 953 Output Total 20 / 220 525 / 525 Balance 275 / 475 428 / 428 Lab / Micro Data 07/02/24 06:50 07/02/24 06:20 Labs: Laboratory Results - last 24 hr 07/01/24 10:50: WBC 5.3, RBC 2.99 L, Hgb 8.5 L, Hct 28.6 L, MCV 95.7, MCH 28.4, MCHC 29.7 L, RDW Std Deviation 70.1 H, RDW Coeff of Fior 20.1 H, Plt Count 259, MPV 9.9, Immature Gran % (Auto) 0.600, Neut % (Auto) 75.8 H, Lymph % (Auto) 9.9 L, [place] % (Auto) 6.8, Eos % (Auto) 6.1 H, Baso % (Auto) 0.8, Absolute Neuts (auto) 4.0, Absolute Lymphs (auto) 0.52 L, Nucleated RBC % 0, Anisocytosis 1+, S odium 135 L, Potassium 4.7, Chloride 103, Carbon Dioxide 25.0, Anion Gap 7, BUN 40 H, Creatinine 5.78 H, Estim Creat Clear Calc 11.98, Est GFR (MDRD) Af Amer 10 L, Est GFR (MDRD) Non-Af 8 L, BUN/Creatinine Ratio 6.9 L, Glucose 112 H, Calcium 8.9, B-Natriuretic Peptide 1307.6 H 07/01/24 11:17: POC Glucose 97 07/01/24 16:49: POC Glucose 89 07/01/24 20:00: POC Glucose 107 H 07/02/24 06:20: Sodium 136, Potassium 4.7, Chloride 103, Carbon Dioxide 24.0, Anion Gap 9, BUN 48 H, Creatinine 6.63 H, Estim Creat Clear Calc 10.45, Est GFR (MDRD) Af Amer 8 L, Est GFR (MDRD) Non-Af 7 L, BUN/Creatinine Ratio 7.2 L, Glucose 98, Calcium 9.4 07/02/24 06:50: WBC 6.5, RBC 2.96 L, Hgb 8.4 L, Hct 27.9 L, MCV 94.3, MCH 28.4, MCHC 30.1 L, RDW Std Deviation 68.6 H, RDW Coeff of Fior 19.9 H, Plt Count 303, MPV 9.7, Immature Gran % (Auto) 0.600, Neut % (Auto) 76.1 H, Lymph % (Auto) 8.9 L, [place] % (Auto) 6.1, Eos % (Auto) 7.5 H, Baso % (Auto) 0.8, Absolute Neuts (auto) 5.0, Absolute Lymphs (auto) 0.58 L, Nucleated RBC % 0, Differential Comment COMMENT, Anisocytosis 1+ Micro: Microbiology 06/28/24 12:00 Wound - Right Foot Gram Stain - Final 06/28/24 12:00 Wound - Right Foot Wound Culture - Final Meth. resistant Staph. aureus 06/27/24 09:14 Wound - Right Foot Gram Stain - Final 06/27/24 09:14 Wound - Right Foot Wound Culture - Final Meth. resistant Staph. aureus Vancomycin Resist. E. faecalis Gram positive elinor 06/27/24 09:15 Blood Culture (Wb) - Left Forearm Blood Culture - Preliminary No growth in 48 hours. 06/27/24 10:25 Urine, Catheterized Urine Culture - Final Culture exhibits no growth. Physical Exam Narrative Alert awake oriented x 3 no obvious distress s1s2 no murmurs lungs clear abdomen soft no edema Tunneled hemodialysis catheter accessed for dialysis Assessment & Plan Assessment/Plan (1) ESRD (end stage renal disease) on dialysis: PLAN: - ESRD on hemodialysis Tuesday, Tuesday, Tuesday at [facility]. Patient undergoing hemodialysis today and attempting around 3 L fluid removal. -History of anemia of chronic disease. Receives long-acting JORGE at dialysis unit. -Diabetic infection of right foot. Podiatry following, no plan for surgery at this time. ID following for antibiotics, receiving daptomycin and ertapenem.
[2024-07-02] MEDS: Aspirin 81 MG TAB.CHEW PO (12:08)
[2024-07-02] MEDS: Folic Acid 1 MG Tablet PO (12:09)
[2024-07-02] MEDS: Pantoprazole Sodium 40 MG Tablet PO ×2 (12:09→16:32)
[2024-07-02] MEDS: Carvedilol 25 MG Tablet PO ×2 (12:10→22:02)
[2024-07-02] MEDS: Lactobacillis Acidophilus 1 CAP PO ×2 (12:10→22:03)
[2024-07-02] MEDS: Furosemide 40 MG/4 ML Vial IV ×2 (12:11→17:41)
[2024-07-02] MEDS: amLODIPine 5 MG Tablet PO (12:12)
[2024-07-02] MEDS: Ascorbic Acid 500 MG Tablet PO ×2 (12:13→22:02)
[2024-07-02] MEDS: Calcitriol 0.25 MCG Capsule 0.5 MCG PO (12:13)
[2024-07-02] MEDS: Sucralfate 1 GM Tablet PO ×2 (12:14→16:31)
[2024-07-02] MEDS: buPROPion (XL) 150 MG TABLET.XL PO (12:14)
[2024-07-02] MEDS: Calcium Acetate 667 MG Capsule PO ×2 (12:15→16:32)
[2024-07-02] MEDS: Paroxetine 20 MG Tablet PO (12:20)
--- NOTE | 2024-07-02 12:35 | PCM.PN.ID ---
Physical Exam Narrative C/o pain in foot, no fever, some nausea Const alert and no apparent distress General Appearance: cooperative Resp normal air movement and clear to auscultation bilaterally Cardio regular rate and regular rhythm GI soft to palpation, non-tender and non-distended Skin Skin Narrative: R foot wrapped ID ID: Route of nutrition/ use of supplements: [] Nutritional Intake: [] IV Site: [] Tirado Catheter: [] Assessment & Plan Assessment/Plan (1) ESRD (end stage renal disease) on dialysis: (2) Diabetic infection of right foot: PLAN: Wound cx and bcx reviewed. Wound cx with MRSA, VRE, and GPR. CT shows possible abscesses. Podiatry following. No plan for surgery at this time. Cont dapto/erta, dosed with HD after discharge with weekly labs for 6 week course, stop date 08/08/24. ID followup in 2 weeks, wrote rx. Will follow
[2024-07-02] MEDS: LORazepam 0.5 MG Tablet PO (12:36)
[2024-07-02] MEDS: PureFlow B 2K Dialysis Soln 1 BAG 6 BAG PF (12:36)
[2024-07-02] MEDS: DAKIN'S SOL HALF STRENGTH (=0.25%) TOPICAL (12:37)
--- NOTE | 2024-07-02 13:07 | PCM.TXEXTCAR ---
Diet Diet Order/Speech Therapy: 06/27/24 15:47 Diet: Renal - ConsCHO - Howie Cont Type of Dietary Supplement:: Ted Diet Comments: Ted w/breakfast and dinner How many daily calories?: 1800 calorie Wound(s) right foot: Wound Type: Neuropathic/Diabetic Foot Ulcer left foot: Wound Type: Neuropathic/Diabetic Foot Ulcer left lateral foot/ankle: Wound Type: Neuropathic/Diabetic Foot Ulcer Dressing Change: dry dressing left plantar foot: Wound Type: Neuropathic/Diabetic Foot Ulcer Dressing Change: Dakins moistened gauze right lateral ankle: Wound Type: Neuropathic/Diabetic Foot Ulcer Dressing Change: Dakins moistened gauze right plantar foot: Wound Type: Neuropathic/Diabetic Foot Ulcer Dressing Change: Dakins moistened gauze Problem/Diagnosis (1) Acute respiratory failure with hypoxia: Status: Resolved Code(s): J96.01 - Acute respiratory failure with hypoxia Plan: Developed during hospitalization CT chest on 06/30 showed pulmonary edema v infiltrate. I reviewed and favor edema. Did require Airvo, but weaned down to 2L nc and now on room air. Improved after dialysis. CCM following. (2) Diabetic infection of right foot: Status: Acute Code(s): E11.628 - Type 2 diabetes mellitus with other skin complications; L08.9 - Local infection of the skin and subcutaneous tissue, unspecified Plan: Seen by Dr. Julian on the and was debrided down to muscle and SQ tissue. All nonviable tissue was removed. No evidence of osteomyelitis at this time. ID following and plan for 6 weeks of daptomycin and ertapenem. (Stop date 08/08) Follow up with ID in 2 weeks. Follow up with podiatry. (3) ESRD (end stage renal disease) on dialysis: Status: Acute Code(s): N18.6 - End stage renal disease; Z99.2 - Dependence on renal dialysis Plan: On HD MWF. Nephrology following. Plan chronic conditions DM2: fair control. Not on Lantus despite previous physician documenting as such. On SSI Hypothyroid: levothyroxine GERD: PPI. VTE prophylaxis: SQ heparin. Allergies/Procedures Done in Hospital Allergies oxycodone (From OxyContin) Allergy (Verified 06/27/24 08:27) sob Penicillins Allergy (Verified 06/27/24 08:27) swelling in throat vancomycin Allergy (Verified 06/27/24 08:27) Itching metronidazole Adverse Reaction (Verified 06/27/24 08:27) Nausea Type of Care/Length of Stay Estimated LOS: Convalescent Care Less Than 30 days Type of Care Needed: Skilled Rehab Potential: Fair Prognosis: Fair Additional Orders/Day of Discharge Day of Discharge: 07/02/24 Dietary and Speech Recommendations Dietitian Recommendations/Changes: Continue 1800 calorie, consistent carb diet. Will order 1 packet of Ted BID with breakfast and dinner. Will order 120ml vanilla or strawberry ensure plus high protein TID with medpass. Will monitor weight, as available. Reviewed and approved by Susan Sanchez, CHRISTINE,LD. Discharge Plan Admission Admit Date/Time: 06/27/24 10:28 Primary Reason for Your Visit: diabetic foot wound Attending Provider: Kali Prado Primary Care Provider: Raúl Eric Consulting Providers: Kike Tello; Gustavo Julian; Angel Joel; Angel Mercedes; Jj Estes; Valerio Alvarado; Rodney Avitia; Juanjo Hicks; Deep Beltran; Melisa Lepe; Javan Parks; Kentrell Goyal; Veronique Thornton; Michelle Perrin; Mahendra Giang; Shola Lei; Chava Frerer; Juli Campos; Gold Lea; Murray Coronel; Rachel Okeefe Discharge Orders/Prescriptions Prescriptions: New daptomycin 500 mg Recon Soln 400 mg IV Q48 40 Days Qty: 16 0RF Rx Instructions: stop date 08/08/24. Dx: R foot osteo. Daptomycin dosed with HD - 400mg on Mon, 400mg on Tue, 600mg on Tuesday. Weekly bmp, cbc, LFT, CK, and esr. Fax to [phone]. ertapenem 1 gram recon soln 1 g IV DAILY Qty: 16 0RF Rx Instructions: stop date 08/08/24. Dx: R foot osteo. Ertapenem dosed with HD - 1gm on Mon-Wed-Tue. Weekly bmp, cbc, LFT, CK, and esr. Fax to [phone]. Nepro Carb Steady 0.08 gram-1.8 kcal/mL Liquid 120 ml PO TIDCM Qty: 0 0RF HySept 0.25 % Solution See Protocol topical DAILY Qty: 0 0RF Protocol: *Topical Application Instructions APPLICATION INSTRUCTIONS: to bilateral foot wounds Continued paroxetine HCl 20 mg tablet 20 mg PO DAILY Patient Comments: TAKE 1 TABLET BY MOUTH EVERY DAY IN THE EVENING bupropion HCl 150 mg tablet extended release 24 hr 150 mg PO DAILY Patient Comments: TAKE 1 TABLET BY MOUTH EVERY DAY sennosides-docusate sodium [Stool Softener-Stimulant Laxat] 8.6-50 mg Tablet 2 tab PO BID PRN PRN (Reason: Constipation) Qty: 0 0RF ascorbic acid (vitamin C) [Vitamin C] 500 mg Tablet 500 mg PO BID pantoprazole 40 mg tablet,delayed release (DR/EC) 40 mg PO BIDCM ferrous sulfate 325 mg (65 mg iron) tablet 325 mg PO .three times a week Patient Comments: takes three times a week, on Tuesday, and Tuesday gabapentin 100 mg capsule 100 mg PO .COMPLEX PRN (Reason: pain) Rx Instructions: 100 mg orally 3 times a week Tuesday, Tuesday and Tuesday atorvastatin 40 mg tablet 40 mg PO DAILY carvedilol 25 mg tablet 25 mg PO BID acetaminophen 325 mg Tablet 650 mg PO Q6H PRN PRN (Reason: Pain 1-10 Or Fever>100.7) Qty: 0 0RF diphenhydramine HCl [Banophen] 25 mg Capsule 25 mg PO Q6H PRN PRN (Reason: Itching) Qty: 0 0RF melatonin 3 mg Tablet 3 mg PO QHS PRN PRN (Reason: Insomnia) Qty: 0 0RF hydralazine 50 mg Tablet 50 mg PO TID Qty: 0 0RF menthol-zinc oxide [Calmoseptine] 0.44-20.6 % Ointment 1 applic topical BID Qty: 0 0RF Protocol: *Topical Application Instructions APPLICATION INSTRUCTIONS: BUTTOCKS sucralfate 1 gram Tablet 1 g PO TID@0700,1100,1600 Qty: 0 0RF insulin lispro [Humalog KwikPen Insulin] 100 unit/mL Insulin Pen See Protocol subcut TIDAC Qty: 0 0RF Protocol: 3. Sliding Scale Insulin Med Dosing Condition: 150-189 mg/dl = 1 unit Condition: 190-229 mg/dl = 2 units Condition: 230-269 mg/dl = 3 units Condition: 270-309 mg/dl = 4 units Condition: 310-349 mg/dl = 5 units Condition: 350-399 mg/dl = 6 units Condition: 400-449 mg/dl = 7 units Condition: Greater than 449 call physician Protocol Text: Suggested for: - Patients on Total Daily Insulin Dose of 37-55 units - Obese, infected, or steroid patients MEDIUM DOSING ALGORITHIM calcium acetate(phosphat bind) 667 mg capsule 676 mg PO TID Patient Comments: TAKE 1 CAPSULE BY MOUTH THREE TIMES A DAY WITH FOOD folic acid 800 mcg tablet 0.8 mg PO DAILY Patient Comments: TAKE 1 TABLET BY MOUTH EVERY DAY levothyroxine 25 mcg tablet 25 mcg PO DAILY Patient Comments: TAKE 1 TABLET BY MOUTH EVERY DAY BEFORE BREAKFAST amlodipine 5 mg tablet 5 mg PO DAILY calcitriol 0.5 mcg capsule 0.5 mcg PO .COMPLEX Rx Instructions: 0.5 mcg orally three times a week; aspirin 81 mg capsule 81 mg PO DAILY Qty: 30 1RF Culturelle 10 billion cell capsule 1 cap PO BID lorazepam 0.5 mg Tablet 0.5 mg PO MoWeFr@1000 Qty: 1 0RF Changed oxycodone 5 mg tablet 2.5 mg PO Q8H PRN (Reason: pain) 3 Days Qty: 10 0RF No Action nitroglycerin [Nitrostat] 0.4 mg tablet, sublingual 0.4 mg sublingual Q5M Rx Instructions: do not exceed 3 doses per episode Referrals / Follow Up: Raúl Eric MD [Primary Care Provider] - Within 2 Weeks Disposition Disposition (needs filled in before D/C Order can be placed): Residential Facility
[2024-07-02] MEDS: hydrALAZINE 50 MG Tablet PO ×2 (14:41→22:03)
[2024-07-02] MEDS: Heparin Injection (Vial) 5,000 UNIT/ML VIAL 5000 UNIT SC ×2 (14:42→22:04)
[2024-07-02 15:06] LABS: Bedside Glucose 80 mg/dL (74-106)
--- NOTE | 2024-07-02 15:46 | CASEMGMT ---
Addendum entered by Georgia Williamson 07/02/24 16:22: SW sent updates via [facility] to [facility] and requested they start precert through [employer]. TOREY advised. ERIN Johnson Original Note: Social Work- SW spoke with BEKA Coyle, to provide updates. Jonna will call tomorrow to verify d/c. SW received notification from [facility] that pt has [employer] and LOC cannot be completed; [facility] SW called registration to run benefits. Registration states that she only shows [employer] no medicaid or caresource. [facility] [employer] verified. TOREY advised. ERIN Johnson
[2024-07-02] MEDS: Ertapenem Sod 0.5 GM in 0.9% Normal Saline (50mL Bag) 50 ML IV (16:31)
[2024-07-02 17:02] LABS: Bedside Glucose 133 mg/dL (74-106)
[2024-07-02] MEDS: Acetaminophen 325 MG Tablet 650 MG PO (18:02)
[2024-07-02] MEDS: Atorvastatin Calcium 40 MG Tablet PO (22:02)
[2024-07-02] MEDS: Pramipexole Di-HCl 0.125 MG Tablet PO (22:02)
[2024-07-02] MEDS: oxyCODONE 5 MG Tablet 2.5 MG PO (22:13)
[2024-07-02 22:36] LABS: Bedside Glucose 106 mg/dL (74-106)
[2024-07-03] VITALS (11 sets, daily range): BP systolic 144–153; BP diastolic 63–81; PULSE 72–77; RESP 15–16; TEMP 36.3–37.2; O2SAT 93–99
[2024-07-03] MEDS: oxyCODONE 5 MG Tablet 2.5 MG PO ×3 (05:13→19:45)
[2024-07-03] MEDS: Heparin Injection (Vial) 5,000 UNIT/ML VIAL 5000 UNIT SC ×3 (05:14→22:33)
[2024-07-03] MEDS: Levothyroxine 25 MCG TABLET PO (05:15)
[2024-07-03] MEDS: hydrALAZINE 50 MG Tablet PO ×3 (05:15→22:32)
[2024-07-03 06:37] LABS: Absolute Lymphocyte Count 0.72 X10^3/uL (0.83-4.51); Absolute Neutrophil Count 3.1 X10^3/uL (2.0-7.7); Basophil# 0.04 X10^3/uL; Basophil% 0.8 % (0-1); Eosinophil# 0.47 X10^3/uL; Eosinophils% 9.9 % (0-5); Hematocrit 29.8 % (37-47); Hemoglobin 8.9 g/dL (12.0-15.0); Lymphocyte # 0.72 X10^3/ul (0.83-4.51); Lymphocyte % 15.2 % (19-41); Mean Corp Hgb Conc 29.9 g/dL (32-36); Mean Corpuscular Volume 93.7 fL (81-99); Mean Platelet Vol. 9.4 fl (6.2-12.0); Monocyte# 0.35 X10^3/uL; Monocyte% 7.4 % (0-10); NRBC Flagged by Analyzer 0 % (0-5); Neutrophil # 3.11 X10^3/uL (2.7-7.7); Neutrophil % 65.6 % (47-70); POSITIVE MORPHOLOGY YES; Platelet Count 289 K/mm3 (150-450); RBC Distribution Width CV 19.4 % (11.6-14.6); Red Blood Count 3.18 M/mm3 (4.2-5.4); White Blood Count 4.7 K/mm3 (4.4-11.0)
[2024-07-03 07:04] LABS: Differential Indicated SCAN CRITERIA MET
[2024-07-03 07:09] LABS: Anion Gap 7 (5-15); BUN 36 mg/dL (7-18); BUN/Creat Ratio 6.5 RATIO (10-20); Calcium,Total 9.2 mg/dL (8.5-10.1); Chloride 103 mmol/L (98-107); Creatinine, Serum 5.57 mg/dL (0.55-1.02); EST Glomerular Filtration Rate 8 mL/min (>60); Est Glom Filt Rate - Afr Amer 10 mL/min (>60); Estimated Creatinine Clearance 12.04 ml/min; Glucose 98 mg/dL (74-106); Potassium 4.5 mmol/L (3.5-5.1); Sodium Level 135 mmol/L (136-145)
[2024-07-03 07:31] LABS: Bedside Glucose 90 mg/dL (74-106)
--- NOTE | 2024-07-03 08:07 | PCM.PN.HOSP ---
Reason for Visit Reason for Visit: Diagnoses Type 2 diabetes mellitus with other skin complications (06/27/24) Acute respiratory failure with hypoxia (06/27/24) Local infection of the skin and subcutaneous tissue, unspecified (06/27/24) Non-pressure chronic ulcer of other part of right foot with necrosis of muscle (06/27/24) Non-pressure chronic ulcer of other part of left foot with necrosis of muscle (06/27/24) Other acute osteomyelitis, right ankle and foot (06/27/24) End stage renal disease (06/27/24) Other malaise (06/27/24) Dependence on renal dialysis (06/27/24) Subjective Subjective Feeling better. Objective Data Objective Data Vital Signs: Vital Signs Temp Pulse Resp BP Pulse Ox O2 Del Method O2 Flow Rate 36.3 C L 77 15 144/63 H 99 Nasal Cannula 2 07/03/24 03:00 07/03/24 05:15 07/03/24 04:00 07/03/24 05:15 07/03/24 07:57 07/03/24 07:57 07/03/24 07:57 FiO2 40 06/30/24 13:50 Oxygen Flow Rate (L/min) 2 Oxygen Delivery Method Nasal Cannula Weight: 96.8 kg Body Mass Index (BMI) 37.8 Intake & Output: Intake and Output for Last 24 Hours 07/01/24 07/02/24 07/03/24 23:59 23:59 23:59 Intake Total 953 / 953 55 / 55 150 / 150 Output Total 525 / 525 2970 / 2970 Balance 428 / 428 -2915 / -2915 150 / 150 Lab / Micro Data 07/03/24 06:23 07/03/24 06:23 Labs: Laboratory Results - last 24 hr 07/02/24 06:50: Differential Comment COMMENT, Anisocytosis 1+ 07/02/24 12:02: POC Glucose 80 07/02/24 16:28: POC Glucose 133 H 07/02/24 21:50: POC Glucose 106 07/03/24 06:23: WBC 4.7, RBC 3.18 L, Hgb 8.9 L, Hct 29.8 L, MCV 93.7, MCH 28.0, MCHC 29.9 L, RDW Std Deviation 67.0 H, RDW Coeff of Fior 19.4 H, Plt Count 289, MPV 9.4, Immature Gran % (Auto) 1.100 H, Neut % (Auto) 65.6, Lymph % (Auto) 15.2 L, [place]isco[place] % (Auto) 7.4, Eos % (Auto) 9.9 H, Baso % (Auto) 0.8, Absolute Neuts (auto) 3.1, Absolute Lymphs (auto) 0.72 L, Nucleated RBC % 0, Sodium 135 L, Potassium 4.5, Chloride 103, Carbon Dioxide 25.0, Anion Gap 7, BUN 36 H, Creatinine 5.57 H, Estim Creat Clear Calc 12.04, Est GFR (MDRD) Af Amer 10 L, Est GFR (MDRD) Non-Af 8 L, BUN/Creatinine Ratio 6.5 L, Glucose 98, Calcium 9.2 07/03/24 07:11: POC Glucose 90 Micro: Microbiology 06/27/24 09:15 Blood Culture (Wb) - Left Forearm Blood Culture - Final No growth in 5 days. 06/28/24 12:00 Wound - Right Foot Gram Stain - Final 06/28/24 12:00 Wound - Right Foot Wound Culture - Final Meth. resistant Staph. aureus 06/27/24 09:14 Wound - Right Foot Gram Stain - Final 06/27/24 09:14 Wound - Right Foot Wound Culture - Final Meth. resistant Staph. aureus Vancomycin Resist. E. faecalis Gram positive elinor 06/27/24 10:25 Urine, Catheterized Urine Culture - Final Culture exhibits no growth. Physical Exam Const alert and no apparent distress HEENT head/scalp atraumatic and moist oral mucous membranes Resp normal respiratory effort and no retractions Extremity Extremity Narrative: bilateral feet and ankles wrapped. Neuro Sensorium / Orientation: awake and alert Assessment & Plan Assessment/Plan (1) Acute respiratory failure with hypoxia: PLAN: Developed during hospitalization, subsequently resolved. CT chest on 06/30 showed pulmonary edema v infiltrate. I reviewed and favor edema. Did require Airvo, but weaned down to 2L nc and now on room air. Improved after dialysis. CCM following. (2) Diabetic infection of right foot: PLAN: Seen by Dr. Julian on the and was debrided down to muscle and SQ tissue. All nonviable tissue was removed. No evidence of osteomyelitis at this time. ID following and plan for 6 weeks of daptomycin and ertapenem. (Stop date 08/08) Follow up with ID in 2 weeks. Follow up with podiatry. (3) ESRD (end stage renal disease) on dialysis: PLAN: On HD MWF. Nephrology following. PLAN: Plan chronic conditions DM2: fair control. Not on Lantus despite previous physician documenting as such. On SSI Hypothyroid: levothyroxine GERD: PPI. VTE prophylaxis: SQ heparin. Charges/Coding Visit Charges [facility]: 8[facility]
[2024-07-03] MEDS: Aspirin 81 MG TAB.CHEW PO (08:28)
[2024-07-03] MEDS: Folic Acid 1 MG Tablet PO (08:28)
[2024-07-03] MEDS: Calcium Acetate 667 MG Capsule PO ×3 (08:29→16:31)
[2024-07-03] MEDS: Ferrous Sulfate 325 MG Tablet PO (08:29)
[2024-07-03] MEDS: Pantoprazole Sodium 40 MG Tablet PO ×2 (08:34→16:31)
[2024-07-03] MEDS: Nepro with Carbsteady 237 ML Liquid 120 ML PO ×3 (08:35→16:32)
[2024-07-03 09:09] LABS: Anisocytosis 1+
[2024-07-03] MEDS: DAKIN'S SOL HALF STRENGTH (=0.25%) TOPICAL (09:11)
[2024-07-03] MEDS: Lactobacillis Acidophilus 1 CAP PO ×2 (09:17→22:34)
[2024-07-03] MEDS: Paroxetine 20 MG Tablet PO ×2 (09:18)
[2024-07-03] MEDS: Ascorbic Acid 500 MG Tablet PO ×2 (09:18→22:35)
[2024-07-03] MEDS: DAPTOMYCIN IV (09:18)
[2024-07-03] MEDS: amLODIPine 5 MG Tablet PO (09:18)
[2024-07-03] MEDS: buPROPion (XL) 150 MG TABLET.XL PO (09:18)
[2024-07-03] MEDS: NORMAL SALINE 0.9% IV (09:18)
[2024-07-03] MEDS: Carvedilol 25 MG Tablet PO ×2 (09:18→22:34)
[2024-07-03] MEDS: Furosemide 40 MG/4 ML Vial IV ×2 (09:30→17:30)
[2024-07-03] MEDS: Sucralfate 1 GM Tablet PO ×2 (11:54→16:31)
[2024-07-03] MEDS: Ondansetron 4 MG/2 ML Vial IV (13:32)
--- NOTE | 2024-07-03 14:26 | PN.RENAL_ITS ---
Subjective Subjective no new complaints Objective Data Objective Data Vital Signs: Vital Signs Temp Pulse Resp BP Pulse Ox O2 Del Method O2 Flow Rate 97.6 F L 77 16 153/81 H 97 Room Air 2 07/03/24 13:45 07/03/24 13:45 07/03/24 13:45 07/03/24 13:45 07/03/24 13:45 07/03/24 13:45 07/03/24 11:18 FiO2 40 06/30/24 13:50 Oxygen Flow Rate (L/min) 2 Oxygen Delivery Method Room Air Weight: 96.8 kg Body Mass Index (BMI) 37.8 Intake & Output: Intake and Output for Last 24 Hours 07/01/24 07/02/24 07/03/24 23:59 23:59 23:59 Intake Total 953 / 953 55 / 55 208 / 208 Output Total 525 / 525 2970 / 2970 Balance 428 / 428 -2915 / -2915 208 / 208 Lab / Micro Data 07/03/24 06:23 07/03/24 06:23 Labs: Laboratory Results - last 24 hr 07/02/24 12:02: POC Glucose 80 07/02/24 16:28: POC Glucose 133 H 07/02/24 21:50: POC Glucose 106 07/03/24 06:23: WBC 4.7, RBC 3.18 L, Hgb 8.9 L, Hct 29.8 L, MCV 93.7, MCH 28.0, MCHC 29.9 L, RDW Std Deviation 67.0 H, RDW Coeff of Fior 19.4 H, Plt Count 289, MPV 9.4, Immature Gran % (Auto) 1.100 H, Neut % (Auto) 65.6, Lymph % (Auto) 15.2 L, [place] % (Auto) 7.4, Eos % (Auto) 9.9 H, Baso % (Auto) 0.8, Absolute Neuts (auto) 3.1, Absolute Lymphs (auto) 0.72 L, Nucleated RBC % 0, Anisocytosis 1+, S odium 135 L, Potassium 4.5, Chloride 103, Carbon Dioxide 25.0, Anion Gap 7, BUN 36 H, Creatinine 5.57 H, Estim Creat Clear Calc 12.04, Est GFR (MDRD) Af Amer 10 L, Est GFR (MDRD) Non-Af 8 L, BUN/Creatinine Ratio 6.5 L, Glucose 98, Calcium 9.2 07/03/24 07:11: POC Glucose 90 Micro: Microbiology 06/27/24 09:15 Blood Culture (Wb) - Left Forearm Blood Culture - Final No growth in 5 days. 06/28/24 12:00 Wound - Right Foot Gram Stain - Final 06/28/24 12:00 Wound - Right Foot Wound Culture - Final Meth. resistant Staph. aureus 06/27/24 09:14 Wound - Right Foot Gram Stain - Final 06/27/24 09:14 Wound - Right Foot Wound Culture - Final Meth. resistant Staph. aureus Vancomycin Resist. E. faecalis Gram positive elinor 06/27/24 10:25 Urine, Catheterized Urine Culture - Final Culture exhibits no growth. Physical Exam Narrative Alert awake oriented x 3 no obvious distress s1s2 no murmurs lungs clear abdomen soft no edema Tunneled hemodialysis catheter accessed for dialysis Assessment & Plan Assessment/Plan (1) ESRD (end stage renal disease) on dialysis: PLAN: - ESRD on hemodialysis Tuesday, Tuesday, Tuesday at [facility]. -History of anemia of chronic disease. Receives long-acting JORGE at dialysis unit. -Diabetic infection of right foot. Podiatry following. ID following for antibiotics, receiving daptomycin and ertapenem.
[2024-07-03 14:48] LABS: Bedside Glucose 145 mg/dL (74-106)
[2024-07-03] MEDS: Ertapenem Sod 0.5 GM in 0.9% Normal Saline (50mL Bag) 50 ML IV (16:32)
[2024-07-03 16:57] LABS: Bedside Glucose 114 mg/dL (74-106)
[2024-07-03] MEDS: 0.9% Saline Lock 10 ML Syringe IV (17:31)
[2024-07-03] MEDS: Acetaminophen 325 MG Tablet 650 MG PO (19:42)
[2024-07-03] MEDS: Atorvastatin Calcium 40 MG Tablet PO (22:35)
[2024-07-03] MEDS: Pramipexole Di-HCl 0.125 MG Tablet PO (22:35)
[2024-07-03 23:56] LABS: Bedside Glucose 100 mg/dL (74-106)
[2024-07-04] VITALS (13 sets, daily range): BP systolic 108–293; BP diastolic 70–80; PULSE 64–77; RESP 16; TEMP 36.7–36.8; O2SAT 95–99; BMI 37.8; BMI 36.8
[2024-07-04] MEDS: oxyCODONE 5 MG Tablet 2.5 MG PO (04:10)
[2024-07-04] MEDS: hydrALAZINE 50 MG Tablet PO ×2 (07:41→14:37)
[2024-07-04] MEDS: Levothyroxine 25 MCG TABLET PO (07:42)
[2024-07-04] MEDS: Sucralfate 1 GM Tablet PO ×3 (07:42→16:56)
[2024-07-04] MEDS: Heparin Injection (Vial) 5,000 UNIT/ML VIAL 5000 UNIT SC ×2 (07:42→14:37)
[2024-07-04] MEDS: PureFlow B 2K Dialysis Soln 1 BAG 6 BAG PF (07:52)
[2024-07-04] MEDS: 0.9% Normal Saline 1,000 ML IV.SOLN. 1000 ML OPERA.SITE (07:52)
[2024-07-04] MEDS: 0.9% Saline Lock 10 ML Syringe IV ×3 (07:52→13:10)
--- NOTE | 2024-07-04 08:31 | PN.HOSP_ITS ---
Reason for Visit Reason for Visit: Diagnoses Type 2 diabetes mellitus with other skin complications (06/27/24) Acute respiratory failure with hypoxia (06/27/24) Local infection of the skin and subcutaneous tissue, unspecified (06/27/24) Non-pressure chronic ulcer of other part of right foot with necrosis of muscle (06/27/24) Non-pressure chronic ulcer of other part of left foot with necrosis of muscle (06/27/24) Other acute osteomyelitis, right ankle and foot (06/27/24) End stage renal disease (06/27/24) Other malaise (06/27/24) Dependence on renal dialysis (06/27/24) Subjective Subjective Feels well. No new events. Objective Data Objective Data Vital Signs: Vital Signs Temp Pulse Resp BP Pulse Ox O2 Del Method O2 Flow Rate 36.8 C 71 16 154/76 H 97 Nasal Cannula 2 07/04/24 03:00 07/04/24 08:00 07/04/24 08:00 07/04/24 08:00 07/04/24 08:00 07/04/24 08:00 07/04/24 08:00 FiO2 40 06/30/24 13:50 Oxygen Flow Rate (L/min) 2 Oxygen Delivery Method Nasal Cannula Weight: 96.8 kg Body Mass Index (BMI) 37.8 Intake & Output: Intake and Output for Last 24 Hours 07/02/24 07/03/24 07/04/24 23:59 23:59 23:59 Intake Total 55 / 55 1444.67 / 1444.67 Output Total 2970 / 2970 Balance -2915 / -2915 1444.67 / 1444.67 Lab / Micro Data 07/03/24 06:23 07/03/24 06:23 Labs: Laboratory Results - last 24 hr 07/03/24 06:23: Anisocytosis 1+ 07/03/24 11:54: POC Glucose 145 H 07/03/24 16:30: POC Glucose 114 H 07/03/24 22:44: POC Glucose 100 Micro: Microbiology 06/27/24 09:15 Blood Culture (Wb) - Left Forearm Blood Culture - Final No growth in 5 days. 06/28/24 12:00 Wound - Right Foot Gram Stain - Final 06/28/24 12:00 Wound - Right Foot Wound Culture - Final Meth. resistant Staph. aureus 06/27/24 09:14 Wound - Right Foot Gram Stain - Final 06/27/24 09:14 Wound - Right Foot Wound Culture - Final Meth. resistant Staph. aureus Vancomycin Resist. E. faecalis Gram positive elinor 06/27/24 10:25 Urine, Catheterized Urine Culture - Final Culture exhibits no growth. Physical Exam Const alert and no apparent distress Resp normal respiratory effort and no retractions Cardio regular rate, regular rhythm, S1 normal heart sound and S2 normal heart sound GI normal to inspection, nondistended, normoactive bowel sounds and soft to palpation Assessment & Plan Assessment/Plan (1) Acute respiratory failure with hypoxia: PLAN: Developed during hospitalization, subsequently resolved. CT chest on 06/30 showed pulmonary edema v infiltrate. I reviewed and favor edema. Did require Airvo, but weaned down to 2L nc and now on room air. Improved after dialysis. CCM following. (2) Diabetic infection of right foot: PLAN: Seen by Dr. Julian on the and was debrided down to muscle and SQ tissue. All nonviable tissue was removed. No evidence of osteomyelitis at this time. ID following and plan for 6 weeks of daptomycin and ertapenem. (Stop date 08/08) Follow up with ID in 2 weeks. Follow up with podiatry. (3) ESRD (end stage renal disease) on dialysis: PLAN: On HD MWF. Nephrology following. PLAN: Plan chronic conditions * DM2: fair control. Not on Lantus despite previous physician documenting as such. On SSI * Hypothyroid: levothyroxine * GERD: PPI. VTE prophylaxis: SQ heparin. Discharge to SNF
[2024-07-04 10:29] LABS: Bedside Glucose 94 mg/dL (74-106)
[2024-07-04] MEDS: Heparin 10,000 UNITS/10 ML Vial IV (10:57)
[2024-07-04] MEDS: DAKIN'S SOL HALF STRENGTH (=0.25%) TOPICAL (11:29)
[2024-07-04] MEDS: Gabapentin 100 MG Capsule PO (11:44)
[2024-07-04] MEDS: Furosemide 40 MG/4 ML Vial IV (11:45)
[2024-07-04] MEDS: amLODIPine 5 MG Tablet PO (11:45)
[2024-07-04] MEDS: Calcitriol 0.25 MCG Capsule 0.5 MCG PO (11:45)
[2024-07-04] MEDS: Folic Acid 1 MG Tablet PO (11:45)
[2024-07-04] MEDS: Carvedilol 25 MG Tablet PO (11:46)
[2024-07-04] MEDS: Lactobacillis Acidophilus 1 CAP PO (11:46)
[2024-07-04] MEDS: Aspirin 81 MG TAB.CHEW PO (11:46)
[2024-07-04] MEDS: Ascorbic Acid 500 MG Tablet PO (11:46)
[2024-07-04] MEDS: Pantoprazole Sodium 40 MG Tablet PO ×2 (11:46→16:55)
[2024-07-04] MEDS: buPROPion (XL) 150 MG TABLET.XL PO (11:46)
[2024-07-04 12:30] LABS: Bedside Glucose 82 mg/dL (74-106)
[2024-07-04] MEDS: Calcium Acetate 667 MG Capsule PO ×2 (13:08→16:55)
--- NOTE | 2024-07-04 14:40 | CASEMGMT ---
Discharge Planning [facility] has obtained auth to admit. SW updated. Rekha Moore DC Planning Asst.
--- NOTE | 2024-07-04 14:56 | DS.PCM_ITS ---
Providers Date of Admission: 06/27/24 Primary Care Physician: Dr. Raúl Eric MD Consultations 06/27/24 12:10 Consult: Infectious Disease Routine Consulting Provider: Kike Tello Reason for Consult: osteomyelitis of right foot EMERGENT Consult: No MD Notified: Yes Date Notified: 06/27/24 Time Notified: 10:30 Method of Notification: Text Consult: Podiatry Routine Consulting Provider: Gustavo Julian Reason for Consult: osteomyelitis of right foot EMERGENT Consult: No Notified: Yes Date Notified: 06/27/24 Time Notified: 12:51 Method of Notification: Text 06/27/24 15:17 Consult: Nephrology Routine Consulting Provider: Angel Joel Reason for Consult: ESRD, dialysis MWF EMERGENT Consult: No Notified: Yes Date Notified: 06/27/24 Time Notified: 15:17 Method of Notification: Text 06/28/24 06:20 Consult: Onc/Wound/procedure tech Routine Comment: Reason for Consult:: diabetic foot wound 06/30/24 12:33 Consult: Food Clerk / Pulmonary Medicine Routine Consulting Provider: Intensivists/Pulmonary Med Reason for Consult: acute hypoxic respiratory failure EMERGENT Consult: No Notified: Yes Date Notified: 06/30/24 Time Notified: 12:47 Method of Notification: Answering Service Comments:: Dr. Homer santacruz ID: [id number] Reason For Visit: OSTEOMYELITIS OF THE RIGHT FOOT Diagnosis Discharge Diagnosis (1) Acute respiratory failure with hypoxia: Status: Resolved Code(s): J96.01 - Acute respiratory failure with hypoxia Plan: Developed during hospitalization, subsequently resolved. CT chest on 06/30 showed pulmonary edema v infiltrate. I reviewed and favor edema. Did require Airvo, but weaned down to 2L nc and now on room air. Improved after dialysis. CCM following. (2) Diabetic infection of right foot: Status: Acute Code(s): E11.628 - Type 2 diabetes mellitus with other skin complications; L08.9 - Local infection of the skin and subcutaneous tissue, unspecified Plan: Seen by Dr. Julian on the and was debrided down to muscle and SQ tissue. All nonviable tissue was removed. No evidence of osteomyelitis at this time. ID following and plan for 6 weeks of daptomycin and ertapenem. (Stop date 08/08) Follow up with ID in 2 weeks. Follow up with podiatry. (3) ESRD (end stage renal disease) on dialysis: Status: Acute Code(s): N18.6 - End stage renal disease; Z99.2 - Dependence on renal dialysis Plan: On HD MWF. Nephrology following. Plan chronic conditions * DM2: fair control. Not on Lantus despite previous physician documenting as such. On SSI * Hypothyroid: levothyroxine * GERD: PPI. VTE prophylaxis: SQ heparin. Discharge to [facility] Medications at Discharge Home Medications paroxetine HCl 20 mg tablet 20 mg PO DAILY DEPRESSION 07/07/21 bupropion HCl 150 mg 24 hr tablet, extended release 150 mg PO DAILY mood 02/04/22 sennosides 8.6 mg-docusate sodium 50 mg tablet (Stool Softener-Stimulant Laxative) 2 tab PO BID PRN PRN Constipation #0 tabs 04/24/22 ascorbic acid (vitamin C) 500 mg tablet (Vitamin C) 500 mg PO BID supplement 05/05/22 ferrous sulfate 325 mg (65 mg iron) tablet 325 mg PO .three times a week anemia 07/19/22 pantoprazole 40 mg tablet,delayed release 40 mg PO BIDCM GERD 07/19/22 gabapentin 100 mg capsule 100 mg PO .COMPLEX PRN pain 11/26/23 amlodipine 5 mg tablet 5 mg PO DAILY bp 12/16/23 calcitriol 0.5 mcg capsule 0.5 mcg PO .COMPLEX on dialysis 12/16/23 calcium acetate(phosphat bind) 667 mg capsule 676 mg PO TID is on dialysis 12/16/23 folic acid 800 mcg tablet 0.8 mg PO DAILY supplement 12/16/23 levothyroxine 25 mcg tablet 25 mcg PO DAILY thyroid 12/16/23 nitroglycerin 0.4 mg sublingual tablet (Nitrostat) 0.4 mg sublingual Q5M chest pain 12/16/23 aspirin 81 mg capsule 81 mg PO DAILY blood thinner #30 caps 12/26/23 atorvastatin 40 mg tablet 40 mg PO DAILY cholesterol 03/18/24 carvedilol 25 mg tablet 25 mg PO BID blood pressure 03/18/24 acetaminophen 325 mg tablet 650 mg (2 x 325 mg) PO Q6H PRN PRN Pain 1-10 Or Fever>100.7 #0 tabs 05/21/24 diphenhydramine HCl 25 mg capsule (Banophen) 25 mg PO Q6H PRN PRN Itching #0 caps 05/21/24 hydralazine 50 mg tablet 50 mg PO TID bp #0 tabs 05/21/24 insulin lispro 100 unit/mL subcutaneous pen (Humalog KwikPen (U-100) Insulin) See Protocol subcut TIDAC blood sugar #0 mL 05/21/24 melatonin 3 mg tablet 3 mg PO QHS PRN PRN Insomnia #0 tabs 05/21/24 menthol 0.44 %-zinc oxide 20.6 % topical ointment (Calmoseptine) 1 applic topical BID skin care #0 grams 05/21/24 sucralfate 1 gram tablet 1 g PO TID@0700,1100,1600 indigestion #0 tabs 05/21/24 Lactobacillus rhamnosus GG 10 billion cell capsule (Culturelle) 1 cap PO BID probiotic 06/04/24 daptomycin 500 mg intravenous solution 400 mg IV Q48 40 days #16 ea 06/29/24 ertapenem 1 gram solution for injection 1 g IV DAILY #16 ea 06/29/24 lorazepam 0.5 mg tablet 0.5 mg PO MoWeFr@1000 #1 TAB 07/02/24 nut.tx.imp.renal fxn,lac-reduc 0.08 gram-1.8 kcal/mL oral liquid (Nepro Carb Steady) 120 ml PO TIDCM #0 mL 07/02/24 oxycodone 5 mg tablet 2.5 mg (1/2 x 5 mg) PO Q8H PRN pain 3 days #10 tabs 07/02/24 sodium hypochlorite 0.25 % solution (HySept) See Protocol topical DAILY #0 mL 07/02/24 Hospital Course Operations None Weight / BMI Weight Weight: 94.3 kg Body Mass Index (BMI) 36.8 ABG / Lab / Microbiology Data 07/03/24 06:23 07/03/24 06:23 Laboratory: Laboratory Results - last 24 hr 07/03/24 16:30: POC Glucose 114 H 07/03/24 22:44: POC Glucose 100 07/04/24 10:07: POC Glucose 94 07/04/24 11:38: POC Glucose 82 Microbiology: Microbiology 06/27/24 09:15 Blood Culture (Wb) - Left Forearm Blood Culture - Final No growth in 5 days. 06/28/24 12:00 Wound - Right Foot Gram Stain - Final 06/28/24 12:00 Wound - Right Foot Wound Culture - Final Meth. resistant Staph. aureus 06/27/24 09:14 Wound - Right Foot Gram Stain - Final 06/27/24 09:14 Wound - Right Foot Wound Culture - Final Meth. resistant Staph. aureus Vancomycin Resist. E. faecalis Gram positive elinor 06/27/24 10:25 Urine, Catheterized Urine Culture - Final Culture exhibits no growth. D/C Instructions Discharge Diet: Renal Diet Meaningful Use Info Meaningful Use Meaningful Use Diagnoses (Choose all that apply): None applicable Ischemic Stroke Statin Dosing Therapy Reference: STATIN DOSE THERAPY REFERENCE: * Patients > 75 years receive moderate or high dose statin therapy. * Patients 75 years or YOUNGER should receive HIGH intensity statin dose unless contraindicated. You will be required to document reason for non-treatment if statin daily dose does not meet guidelines. HIGH DOSE STATIN THERAPY DAILY Atorvastatin > than or = to 40 mg Rosuvastatin > than or = to 20 mg Amlodipine + Atorvastatin > than or = to 2.5/40 mg Ezetimibe + Simvastatin 10/80 mg Simvastatin 80mg Discharge Plan Admission Admit Date/Time: 06/27/24 10:28 Primary Reason for Your Visit: diabetic foot wound Attending Provider: Kali Prado Primary Care Provider: Raúl Eric Consulting Providers: Kike Tello; Gustavo Julian; Angel Joel; Angel Mercedes; Jj Estes; Valerio Alvarado; Rodney Avitia; Juanjo Hicks; Deep Beltran; Melisa Lepe; Javan Parks; Kentrell Goyal; Veronique Thornton; Michelle Perrin; Rahat,Mahendra; Shola Lei; Chava Ferrer; Juli Campos; Gold Lea; Murray Coronel; Rachel Okeefe Discharge Orders/Prescriptions Prescriptions: New daptomycin 500 mg Recon Soln 400 mg IV Q48 40 Days Qty: 16 0RF Rx Instructions: stop date 08/08/24. Dx: R foot osteo. Daptomycin dosed with HD - 400mg on Mon, 400mg on Wed, 600mg on Tuesday. Weekly bmp, cbc, LFT, CK, and esr. Fax to [phone]. ertapenem 1 gram recon soln 1 g IV DAILY Qty: 16 0RF Rx Instructions: stop date 08/08/24. Dx: R foot osteo. Ertapenem dosed with HD - 1gm on Tue-Tue-Tue. Weekly bmp, cbc, LFT, CK, and esr. Fax to [phone]. Nepro Carb Steady 0.08 gram-1.8 kcal/mL Liquid 120 ml PO TIDCM Qty: 0 0RF HySept 0.25 % Solution See Protocol topical DAILY Qty: 0 0RF Protocol: *Topical Application Instructions APPLICATION INSTRUCTIONS: to bilateral foot wounds Continued paroxetine HCl 20 mg tablet 20 mg PO DAILY Patient Comments: TAKE 1 TABLET BY MOUTH EVERY DAY IN THE EVENING bupropion HCl 150 mg tablet extended release 24 hr 150 mg PO DAILY Patient Comments: TAKE 1 TABLET BY MOUTH EVERY DAY sennosides-docusate sodium [Stool Softener-Stimulant Laxat] 8.6-50 mg Tablet 2 tab PO BID PRN PRN (Reason: Constipation) Qty: 0 0RF ascorbic acid (vitamin C) [Vitamin C] 500 mg Tablet 500 mg PO BID pantoprazole 40 mg tablet,delayed release (DR/EC) 40 mg PO BIDCM ferrous sulfate 325 mg (65 mg iron) tablet 325 mg PO .three times a week Patient Comments: takes three times a week, on Tuesday, and Tuesday gabapentin 100 mg capsule 100 mg PO .COMPLEX PRN (Reason: pain) Rx Instructions: 100 mg orally 3 times a week Tuesday, Tuesday and Tuesday atorvastatin 40 mg tablet 40 mg PO DAILY carvedilol 25 mg tablet 25 mg PO BID acetaminophen 325 mg Tablet 650 mg PO Q6H PRN PRN (Reason: Pain 1-10 Or Fever>100.7) Qty: 0 0RF diphenhydramine HCl [Banophen] 25 mg Capsule 25 mg PO Q6H PRN PRN (Reason: Itching) Qty: 0 0RF melatonin 3 mg Tablet 3 mg PO QHS PRN PRN (Reason: Insomnia) Qty: 0 0RF hydralazine 50 mg Tablet 50 mg PO TID Qty: 0 0RF menthol-zinc oxide [Calmoseptine] 0.44-20.6 % Ointment 1 applic topical BID Qty: 0 0RF Protocol: *Topical Application Instructions APPLICATION INSTRUCTIONS: BUTTOCKS sucralfate 1 gram Tablet 1 g PO TID@0700,1100,1600 Qty: 0 0RF insulin lispro [Humalog KwikPen Insulin] 100 unit/mL Insulin Pen See Protocol subcut TIDAC Qty: 0 0RF Protocol: 3. Sliding Scale Insulin Med Dosing Condition: 150-189 mg/dl = 1 unit Condition: 190-229 mg/dl = 2 units Condition: 230-269 mg/dl = 3 units Condition: 270-309 mg/dl = 4 units Condition: 310-349 mg/dl = 5 units Condition: 350-399 mg/dl = 6 units Condition: 400-449 mg/dl = 7 units Condition: Greater than 449 call physician Protocol Text: Suggested for: - Patients on Total Daily Insulin Dose of 37-55 units - Obese, infected, or steroid patients MEDIUM DOSING ALGORITHIM calcium acetate(phosphat bind) 667 mg capsule 676 mg PO TID Patient Comments: TAKE 1 CAPSULE BY MOUTH THREE TIMES A DAY WITH FOOD folic acid 800 mcg tablet 0.8 mg PO DAILY Patient Comments: TAKE 1 TABLET BY MOUTH EVERY DAY levothyroxine 25 mcg tablet 25 mcg PO DAILY Patient Comments: TAKE 1 TABLET BY MOUTH EVERY DAY BEFORE BREAKFAST amlodipine 5 mg tablet 5 mg PO DAILY calcitriol 0.5 mcg capsule 0.5 mcg PO .COMPLEX Rx Instructions: 0.5 mcg orally three times a week; aspirin 81 mg capsule 81 mg PO DAILY Qty: 30 1RF Culturelle 10 billion cell capsule 1 cap PO BID lorazepam 0.5 mg Tablet 0.5 mg PO MoWeFr@1000 Qty: 1 0RF Changed oxycodone 5 mg tablet 2.5 mg PO Q8H PRN (Reason: pain) 3 Days Qty: 10 0RF No Action nitroglycerin [Nitrostat] 0.4 mg tablet, sublingual 0.4 mg sublingual Q5M Rx Instructions: do not exceed 3 doses per episode Referrals / Follow Up: Raúl Eric MD [Primary Care Provider] - Within 2 Weeks Disposition Disposition (needs filled in before D/C Order can be placed): Long-Term Facility Charges/Coding Visit Charges Inpatient E&M: 14339 Disch Hosp
--- NOTE | 2024-07-04 15:03 | CASEMGMT ---
Social Work Precert has been obtained.? Physician updated and pt is ready for discharge today.? SW met with pt and they are agreeable to discharge plan as stated above.?DCA notified of discharge. Disposition:[facility], intermediate level of care ERIN Johnson
--- NOTE | 2024-07-04 15:41 | PCM.PN.REN ---
Subjective Subjective seen on HD Objective Data Objective Data Vital Signs: Vital Signs Temp Pulse Resp BP Pulse Ox O2 Del Method O2 Flow Rate 98.3 F 66 16 139/76 H 98 Nasal Cannula 2 07/04/24 08:30 07/04/24 14:37 07/04/24 11:00 07/04/24 14:37 07/04/24 11:00 07/04/24 11:00 07/04/24 11:00 FiO2 40 06/30/24 13:50 Oxygen Flow Rate (L/min) 2 Oxygen Delivery Method Nasal Cannula Weight: 94.3 kg Body Mass Index (BMI) 36.8 Intake & Output: Intake and Output for Last 24 Hours 07/02/24 07/03/24 07/04/24 23:59 23:59 23:59 Intake Total 55 / 55 1444.67 / 1444.67 Output Total 2970 / 2970 2780 / 2780 Balance -2915 / -2915 1444.67 / 1444.67 -2780 / -2780 Lab / Micro Data 07/03/24 06:23 07/03/24 06:23 Labs: Laboratory Results - last 24 hr 07/03/24 16:30: POC Glucose 114 H 07/03/24 22:44: POC Glucose 100 07/04/24 10:07: POC Glucose 94 07/04/24 11:38: POC Glucose 82 Micro: Microbiology 06/27/24 09:15 Blood Culture (Wb) - Left Forearm Blood Culture - Final No growth in 5 days. 06/28/24 12:00 Wound - Right Foot Gram Stain - Final 06/28/24 12:00 Wound - Right Foot Wound Culture - Final Meth. resistant Staph. aureus 06/27/24 09:14 Wound - Right Foot Gram Stain - Final 06/27/24 09:14 Wound - Right Foot Wound Culture - Final Meth. resistant Staph. aureus Vancomycin Resist. E. faecalis Gram positive elnior 06/27/24 10:25 Urine, Catheterized Urine Culture - Final Culture exhibits no growth. Physical Exam Narrative Alert awake oriented x 3 no obvious distress s1s2 no murmurs lungs clear abdomen soft no edema Tunneled hemodialysis catheter accessed for dialysis Assessment & Plan Assessment/Plan (1) ESRD (end stage renal disease) on dialysis: PLAN: - ESRD on hemodialysis Tuesday, Tuesday, Tuesday at [facility]. seen on HD today. 2-3 L fluid off -History of anemia of chronic disease. Receives long-acting JORGE at dialysis unit. will likely start with next treatment -Diabetic infection of right foot. Podiatry following. ID following
--- NOTE | 2024-07-04 15:52 | CASEMGMT ---
Discharge Planning Discharge orders, signed med list, and transport time sent to [facility] via [facility]. Physicians will transport patient by wheelchair at 5p. Nursing and SW updated. Unable to reach both pts daughter or niece. Rekha Moore DC Planning Asst.
== END 2024-07-04 17:38 | disposition skilled nursing facility (03) | DRG 622 ==
LOC: ED 10:28 → MS3 10:39
PROVIDERS: Internal Medicine; Podiatrist; Admitting Provider Student in an Organized Health Care Education/Training Program; Emergency Provider Emergency Medicine; PCP Family Medicine
DX: E11.621 Type 2 diabetes mellitus with foot ulcer (principal); J96.01 Acute respiratory failure with hypoxia; I12.0 Hypertensive chronic kidney disease with stage 5 chronic kidney disease or end stage renal disease; L97.313 Non-pressure chronic ulcer of right ankle with necrosis of muscle; T81.31XA Disruption of external operation (surgical) wound, not elsewhere classified, initial encounter; L97.323 Non-pressure chronic ulcer of left ankle with necrosis of muscle; L03.115 Cellulitis of right lower limb; L02.611 Cutaneous abscess of right foot; E11.610 Type 2 diabetes mellitus with diabetic neuropathic arthropathy; D63.8 Anemia in other chronic diseases classified elsewhere; N18.6 End stage renal disease; E03.9 Hypothyroidism, unspecified; E11.628 Type 2 diabetes mellitus with other skin complications; E11.42 Type 2 diabetes mellitus with diabetic polyneuropathy; E11.22 Type 2 diabetes mellitus with diabetic chronic kidney disease; E78.5 Hyperlipidemia, unspecified; Z79.4 Long term (current) use of insulin; I25.5 Ischemic cardiomyopathy; I25.10 Atherosclerotic heart disease of native coronary artery without angina pectoris; F41.9 Anxiety disorder, unspecified; Z99.2 Dependence on renal dialysis; K21.9 Gastro-esophageal reflux disease without esophagitis; L97.513 Non-pressure chronic ulcer of other part of right foot with necrosis of muscle; Z89.421 Acquired absence of other right toe(s); M54.9 Dorsalgia, unspecified; E87.70 Fluid overload, unspecified; B95.62 Methicillin resistant Staphylococcus aureus infection as the cause of diseases classified elsewhere; Y83.8 Other surgical procedures as the cause of abnormal reaction of the patient, or of later complication, without mention of misadventure at the time of the procedure; G89.29 Other chronic pain; R53.81 Other malaise; Z88.0 Allergy status to penicillin; Z88.1 Allergy status to other antibiotic agents; Z79.82 Long term (current) use of aspirin; Z79.891 Long term (current) use of opiate analgesic; Z79.899 Other long term (current) drug therapy; Z87.39 Personal history of other diseases of the musculoskeletal system and connective tissue; Z95.5 Presence of coronary angioplasty implant and graft
CPT/HCPCS: 11042; 11043; 11046; 36415; 36600; 71045; 71250; 73610; 73630; 73701; 80048; 80053; 81001; 82803; 82962; 83605; 83880; 85025; 85610; 85730; 87040; 87070; 87077; 87086; 87186; 87205; 87640; 90937; 93005; 94660; 94668; 94762; 97110; 97116; 97162; 97166; 97530; 97535; 97802; 99285; J0878; J2020; J2185; J7030; J7040; Q9967; A4216; G0257; J1940; J2405; J3490

== ENCOUNTER 2024-07-09 11:16 | Inpatient (IN) | payer MEDICARE, MEDICAID, SELFPAY ==
[2018-09-21 13:23] VITALS: BMI 29.3
[2024-07-09] VITALS (10 sets, daily range): BP systolic 133–183; BP diastolic 60–110; PULSE 74–80; RESP 13–18; TEMP 36.1–36.8; O2SAT 91–100; BMI 27.7; BMI 26.6
--- NOTE | 2024-07-09 11:30 | CT_ITS ---
We are attempting to reach an attending provider to discuss findings. An addendum with communication details will be sent when the communication is complete. STUDY: CT BRAIN WITHOUT CONTRAST REASON FOR EXAM: Female, 59 years old. New onset seizure, postictal RADIATION DOSAGE (If Supplied By Facility): CTDIvol = ( 44.99 ) mGy, DLP = ( 745.49 ) mGycm TECHNIQUE: Transaxial CT imaging of the brain was performed without administration of intravenous contrast material. Individualized dose optimization techniques were used for this CT. COMPARISON: 06/04/2024 FINDINGS: Normal soft tissue structures. Normal calvarium. There is mild cerebral atrophy with widening of the extra-axial spaces and ventricular dilatation. There are areas of decreased attenuation within the white matter tracts of the supratentorial brain, consistent with microvascular disease changes. Small round area of decreased attenuation within the right thalamus may represent an acute or chronic infarct. Normal brainstem. Normal cerebellum. There is no intracranial hemorrhage. No change in the areas of encephalomalacia within the posterior right parietal lobe and right occipital lobe consistent with chronic infarcts. Normal visualized paranasal sinuses. CT/Brain/Head without Contrast IMPRESSION: Chronic involutional changes of the brain. Possible acute or chronic punctate infarct in the right thalamus. MRI may be useful. No acute intracranial hemorrhage. Electronically Signed: Scot Penny MD at 12:01 EDT ,
--- NOTE | 2024-07-09 11:30 | EKG12_ITS ---
Test Reason : Blood Pressure : / mmHG Vent. Rate : 078 BPM Atrial Rate : 078 BPM P-R Int : 176 ms QRS Dur : 102 ms QT Int : 426 ms P-R-T Axes : 050 020 028 degrees QTc Int : 485 ms Normal sinus rhythm Minimal voltage criteria for LVH, may be normal variant ( [place] product ) Prolonged QT Abnormal ECG Confirmed by OTTO DELVALLE, DOMINIQUE ([id number]), social media editor DAVID CARCAMO ([id number]) on 07/10/2024 8:42:18 AM Referred By: RERE Confirmed By:DOMINIQUE MENJIVAR MD
--- NOTE | 2024-07-09 11:35 | EDS_ITS ---
HPI History of Present Illness Chief Complaint: Seizure Detail of Chief Complaint: Generalized seizure during dialysis Informant: patient, EMS (EMS run sheet/verbal report was available at the time of this documentation) and other (The dialysis unit was paged to discuss patient's presentation.) Onset/Context/Timing Onset: Today and Hours Context: Sudden Onset Timing: Intermittent Quality: Reported seizure Location: [facility] dialysis unit Current Severity: Mild (Patient is postictal at this time) Maximum Severity: Severe Worsened by: Unknown Relieved by: Not applicable Associated Symptoms Associated Symptoms: Postictal and complaining of abdominal pain Narrative Narrative: Patient 59-year-old woman on hemodialysis Tuesday, Tuesday and Tuesday for the past 3 years presents by ambulance after reported generalized tonic-clonic seizure. Patient is presently postictal. Contacted [facility] dialysis unit. Spoke with the nurse. She had completed her dialysis. She was receiving daptomycin for MRSA infection of her feet. Patient stated she did not feel well. She then had a generalized tonic-clonic seizure. Nurse states she was biting her tongue. She was not pale or diaphoretic. She was unresponsive for some time. She was not bradycardic to suggest a vasovagal episode. Prior similar symptoms: No Recent Illness/Hospitalization: No PFSH PFS Medical History Non-pressure chronic ulcer of right ankle with necrosis of muscle Non-pressure chronic 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 layer exposed Non-pressure chronic ulcer of other part of left foot with fat layer exposed Non-pressure chronic ulcer of left ankle with necrosis of muscle Adverse effect of synthetic cannabinoids, initial encounter [place] coma scale score 13-15, at arrival to emergency department Acute alteration in mental status ESRD (end stage renal disease) on dialysis Short Achilles tendon (acquired), left ankle Short Achilles tendon (acquired), right ankle Acquired cavovarus deformity of left foot Acquired cavovarus deformity of right foot Type 2 diabetes mellitus with diabetic polyneuropathy Adult failure to thrive Debility Charcot's joint, right ankle and foot Charcot's joint, left ankle and foot Drowsiness Mental status, decreased Carotid artery stenosis MSSA bacteremia ESRD on hemodialysis Osteomyelitis Anemia in chronic illness Type 2 diabetes mellitus Foot osteomyelitis, left Chronic renal disease, stage 4, severely decreased glomerular filtration rate (GFR) between 15-29 mL/min/1.73 square meter Acute on chronic anemia Chronic ulcer of right foot with necrosis of bone Chronic kidney disease, stage 4 (severe) Diabetes mellitus with diabetic polyneuropathy Diabetic foot ulcers Chronic kidney disease, stage 3b Cellulitis Acute lumbar radiculopathy Essential hypertension Adult failure to thrive COVID-19 (08/28/21) Chronic ulcer of right leg with fat layer exposed Ulcer of left foot with fat layer exposed Chronic ulcer of right foot with fat layer exposed Hyperparathyroidism, secondary renal Iron deficiency anemia Bilateral edema of lower extremity Chronic foot pain Charcot's joint of right foot Diabetes Non-smoker Myocardial infarct Hypertension TIA (transient ischemic attack) Amputation foot, bilat 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 Ulcer of left foot with necrosis of muscle Ulcer of left foot with muscle involvement without evidence of necrosis Anxiety and depression Diabetic infection of left foot Delayed wound healing Non-compliance Diabetic polyneuropathy Ischemic cardiomyopathy Obesity (BMI 30.0-34.9) Acquired varus deformity of left foot Acquired varus deformity of right foot Atherosclerosis of [place] coronary artery of [place] heart without angina pectoris Hemoglobin A1c greater than 9.0% NSTEMI (non-ST elevated myocardial infarction) (09/20/18) GERD (gastroesophageal reflux disease) HLD (hyperlipidemia) Back pain, chronic RLS (restless legs syndrome) Home Medications ?Medication ?Instructions ?Recorded ?Last Taken ?Type paroxetine HCl 20 mg tablet 20 mg PO DAILY DEPRESSION 07/07/21 04/07/22 History bupropion HCl 150 mg 24 hr tablet, 150 mg PO DAILY mood 02/04/22 04/07/22 History extended release sennosides 8.6 mg-docusate sodium 2 tab PO BID PRN PRN Constipation 04/24/22 Unknown Rx 50 mg tablet (Stool #0 tabs Softener-Stimulant Laxative) ascorbic acid (vitamin C) 500 mg 500 mg PO BID supplement 05/05/22 Unknown History tablet (Vitamin C) ferrous sulfate 325 mg (65 mg 325 mg PO .three times a week 07/19/22 Unknown History iron) tablet anemia pantoprazole 40 mg tablet,delayed 40 mg PO BIDCM GERD 07/19/22 Unknown History release gabapentin 100 mg capsule 100 mg PO .COMPLEX PRN pain 11/26/23 Unknown History amlodipine 5 mg tablet 5 mg PO DAILY bp 12/16/23 Unknown History calcitriol 0.5 mcg capsule 0.5 mcg PO .COMPLEX on dialysis 12/16/23 07/09/24 History calcium acetate(phosphat bind) 667 676 mg PO TID is on dialysis 12/16/23 Unknown History mg capsule folic acid 800 mcg tablet 0.8 mg PO DAILY supplement 12/16/23 Unknown History levothyroxine 25 mcg tablet 25 mcg PO DAILY thyroid 12/16/23 Unknown History nitroglycerin 0.4 mg sublingual 0.4 mg sublingual Q5M chest pain 12/16/23 Unknown History tablet (Nitrostat) aspirin 81 mg capsule 81 mg PO DAILY blood thinner #30 12/26/23 Unknown Rx caps atorvastatin 40 mg tablet 40 mg PO DAILY cholesterol 03/18/24 06/26/24 History carvedilol 25 mg tablet 25 mg PO BID blood pressure 03/18/24 Unknown History diphenhydramine HCl 25 mg capsule 25 mg PO Q6H PRN PRN Itching #0 05/21/24 Unknown Rx (Banophen) caps hydralazine 50 mg tablet 50 mg PO TID bp #0 tabs 05/21/24 Unknown Rx insulin lispro 100 unit/mL See Protocol subcut TIDAC blood 05/21/24 Unknown Rx subcutaneous pen (Humalog KwikPen sugar #0 mL (U-100) Insulin) melatonin 3 mg tablet 3 mg PO QHS PRN PRN Insomnia #0 05/21/24 Unknown Rx tabs menthol 0.44 %-zinc oxide 20.6 % 1 applic topical BID skin care #0 05/21/24 Unknown Rx topical ointment (Calmoseptine) grams sucralfate 1 gram tablet 1 g PO TID@0700,1100,1600 05/21/24 Unknown Rx indigestion #0 tabs daptomycin 500 mg intravenous 400 mg IV Q48 40 days #16 ea 06/29/24 Unknown Rx solution ertapenem 1 gram solution for 1 g IV DAILY #16 ea 06/29/24 Unknown Rx injection lorazepam 0.5 mg tablet 0.5 mg PO MoWeFr@1000 #1 TAB 07/02/24 Unknown Rx oxycodone 5 mg tablet 2.5 mg (1/2 x 5 mg) PO Q8H PRN 07/02/24 Unknown Rx pain 3 days #10 tabs acetaminophen 325 mg tablet 650 mg PO Q6H PRN fever or pain 07/09/24 Unknown History Allergy/AdvReac Type Severity Reaction Status Date / Time oxycodone (From OxyContin) Allergy sob Verified 06/27/24 08:27 Penicillins Allergy swelling Verified 06/27/24 08:27 in throat vancomycin Allergy Itching Verified 06/27/24 08:27 metronidazole AdvReac Nausea Verified 06/27/24 08:27 Family History Mother Diabetes CVA (cerebral vascular accident) Brother CAD (coronary artery disease) CABG X 3 Cancer testicular Diabetes Brother CAD (coronary artery disease) CABG X3 Diabetes Brother CAD (coronary artery disease) Stents Diabetes Sister CAD (coronary artery disease) CABG x 3 CVA (cerebral vascular accident) Diabetes Surgical History History of History of foot surgery History of bilateral carpal tunnel release History of rotator cuff surgery History of coronary artery stent placement (12/31/20) Social History household members: none number of children: 2 current occupational status: disabled Smoking Status: Never smoker alcohol intake: never substance use type: does not use caffeine: Yes Type: carbonated beverages Number of servings: 2 ROS ROS ED Review of Systems ROS Unobtainable: due to mental status Gastrointestinal Gastrointestinal: Reports abdominal pain EXAM Physical Exam Const Vital Signs: 07/09/24 11:17 07/09/24 12:32 Temperature 97 F L 98.2 F Temperature Source Axillary Oral Pulse Rate 76 78 Respiratory Rate 14 13 Blood Pressure 133/60 H 151/69 H Blood Pressure Mean 84 96 Pulse Ox 91 96 Oxygen Delivery Method Room Air Room Air Positive well nourished and well developed Constitutional Narrative: Patient is not awake or alert. She does respond to tactile and verbal stimuli. She is presently not oriented. General Appearance ED: well developed, NAD and pallor HEENT Reports dry mucous membranes HEENT Narrative: Head is atraumatic normocephalic. Ears normal. TMs normal. Nares patent. Posterior pharynx is normal. Mouth ED: Yes dry mucous membranes Mouth: dry mucous membranes Eyes PERRL and EOMs intact bilaterally General Eye ED: Yes pale conjunctiva; Negative for scleral icterus Neck no lymphadenopathy, supple and no JVD Chest Wall palpation of chest normal; Negative for inspection of chest normal Chest Narrative: Dialysis catheter left subclavian Resp normal respiratory effort and clear to auscultation bilaterally Cardio regular rate, regular rhythm, S1 normal heart sound, S2 normal heart sound and no murmurs GI non-distended and no masses; Negative for non-tender or hepatosplenomegaly GI Narrative: Multiple bruises noted abdomen due to injection sites. Palpation: tender other (Reportedly throughout.) Back/Spine no CVA tenderness Extremity Extremity Narrative: Edema of her feet. There is dressing due to foot infection. Neuro No oriented x3 and CN's II-XII intact bilaterally Neuro Narrative: There is no clonus at the ankles and Babinski sign negative bilaterally. Sensorium / Orientation: Negative for alert Skin General Skin Exam: pallor; Negative for jaundice MDM MDM MDM Narrative Medical decision making narrative: Patient with new onset generalized tonic-clonic seizure. Since history is limited will obtain CT to assess for any intracranial pathology which may explain her new onset seizure. Appropriate blood work was obtained which incl uded CBC electrolyte panel. History & Record Review Additional record(s) reviewed:: Prior inpatient record (MRSA infection of her feet. Presently on daptomycin.), Prior ED visit and Prior labs Lab Data Attestation: I reviewed the patient's lab results. Lab results narrative: CBC reveals mild anemia. Indices are normal. Basic metabolic panel reveals creatinine of 2.97. This is not unexpected since she has end-stage renal disease on hemodialysis. Labs: Laboratory Results - last 24 hr 07/09/24 11:25 WBC 8.7 RBC 3.60 L Hgb 10.1 L Hct 33.8 L MCV 93.9 MCH 28.1 MCHC 29.9 L RDW Std Deviation 65.4 H RDW Coeff of Fior 19.1 H Plt Count 289 MPV 9.5 Immature Gran % (Auto) 1.500 H Neut % (Auto) 70.3 H Lymph % (Auto) 13.8 L [place] % (Auto) 9.5 Eos % (Auto) 4.0 Baso % (Auto) 0.9 Absolute Neuts (auto) 6.1 Absolute Lymphs (auto) 1.20 Nucleated RBC % 0 Sodium 140 Potassium 3.4 L Chloride 100 Carbon Dioxide 30.0 Anion Gap 10 BUN 17 Creatinine 2.97 H Estim Creat Clear Calc 19.28 Est GFR (MDRD) Af Amer 21 L Est GFR (MDRD) Non-Af 17 L BUN/Creatinine Ratio 5.7 L Glucose 121 H Calcium 9.4 Radiography Diagnostic Testing: Clinical Impression(s) from Imaging Studies Brain CT 07/09/24 11:30 IMPRESSION: Chronic involutional changes of the brain. Possible acute or chronic punctate infarct in the right thalamus. MRI may be useful. No acute intracranial hemorrhage. Electronically Signed: Scot Penny MD at 12:01 EDT Reading Location ID and State: [id number] / [employer] , Service support , ADDENDUM: 07/09/24 1211 IMPRESSION: Chronic involutional changes of the brain. Possible acute or chronic punctate infarct in the right thalamus. MRI may be useful. No acute intracranial hemorrhage. N.B. : The above Results were Read Back by Scot Penny MD to Devin Lincoln MD, and understanding confirmed on 07/09/2024 12:04:46 (ET). Electronically Signed: Scot Penny MD at 12:01 EDT , Radiologist called me because of concern for possible acute right thalamic infarct. This may be the nidus of her seizure. EKG Initial EKG: Attestation: I personally reviewed and interpreted this EKG as follows: Interpretation: Sinus Rhythm (Rate is 78. Patient does meet LVH by voltage criteria. QT is prolonged. NC interval is 176 ms. QRS duration 102 ms. QT is 426. [place] is normal.) Management Discussion w/another healthcare provider: Hospitalist (Case was discussed with Dr. Ellis. Dr. Ellis was informed why anticonvulsant was not started. Plan is to admit PCU.) Treatment and Re-Evaluation :: Will contact the hospitalist for admission because of this concern for lacunar infarct and probably the nidus of her seizures. Since this is her first seizure she was not started on anticonvulsants. Discharge Plan Dx/Rx/DC Orders Clinical Impression: New onset seizure, ESRD (end stage renal disease) on dialysis, Anemia, Diabetic infection of right foot, Infarction of right thalamus Disposition Disposition: Acute Care Hospital [facility]
[2024-07-09 12:00] LABS: Absolute Neutrophil Count 6.1 X10^3/uL (2.0-7.7); Basophil# 0.08 X10^3/uL; Basophil% 0.9 % (0-1); Eosinophil# 0.35 X10^3/uL; Hematocrit 33.8 % (37-47); Hemoglobin 10.1 g/dL (12.0-15.0); Lymphocyte % 13.8 % (19-41); Mean Corp Hgb Conc 29.9 g/dL (32-36); Mean Corpuscular Hgb 28.1 pg (27.0-32.0); Mean Corpuscular Volume 93.9 fL (81-99); Mean Platelet Vol. 9.5 fl (6.2-12.0); Monocyte# 0.83 X10^3/uL; Monocyte% 9.5 % (0-10); NRBC Flagged by Analyzer 0 % (0-5); Neutrophil # 6.13 X10^3/uL (2.7-7.7); Neutrophil % 70.3 % (47-70); POSITIVE MORPHOLOGY YES; Platelet Count 289 K/mm3 (150-450); RBC Distribution Width CV 19.1 % (11.6-14.6); RBC Distribution Width SD 65.4 fl (35.1-43.9); White Blood Count 8.7 K/mm3 (4.4-11.0)
[2024-07-09 12:06] LABS: Differential Indicated SCAN CRITERIA MET
[2024-07-09 12:29] LABS: Anion Gap 10 (5-15); BUN 17 mg/dL (7-18); BUN/Creat Ratio 5.7 RATIO (10-20); Calcium,Total 9.4 mg/dL (8.5-10.1); Chloride 100 mmol/L (98-107); Creatinine, Serum 2.97 mg/dL (0.55-1.02); EST Glomerular Filtration Rate 17 mL/min (>60); Est Glom Filt Rate - Afr Amer 21 mL/min (>60); Estimated Creatinine Clearance 19.28 ml/min; Glucose 121 mg/dL (74-106); Potassium 3.4 mmol/L (3.5-5.1); Sodium Level 140 mmol/L (136-145)
[2024-07-09 13:11] LABS: Anisocytosis 2+
--- NOTE | 2024-07-09 13:24 | ED.RN ---
this rn speaks with skilled nurse nursing facility in regards to patient admission and diagnosis.
--- NOTE | 2024-07-09 13:31 | HP.PCM.HOS_ITS ---
HPI - General General Date of Admission: 07/09/24 Date of Service: 07/09/24 Chief Complaint: Suspected seizure episode in hemodialysis center. Unresponsiveness. HPI Narrative DIONY ROCHA, is a 59 F who was brought by EMS for suspected seizure from hemodialysis center. Patient is stated her left upper extremity started shaking and then she does not remember. As per EMS, she was found unresponsive in [facility] dialysis center. EMS vitals shows BP was 160/68, heart rate 75/min. Patient is on IV antibiotic for bilateral MRSA infection in feet she was recently discharged from [facility] [place] on 07/04. In ED, the patient is stated that she completed dialysis and while she was getting daptomycin infusion she felt left upper extremity shaking. She herself denies tonic contraction/rigidity partial or complete what she does not remember well. After that she was unresponsive. The ED physician did not call us stroke alert but has workups with CT head reported possible acute on chronic punctate infarct in right thalamus. No acute ICH. Patient said she had a stroke in December this year and has left upper extremity weakness since then. When I saw her she was on baseline. [facility] Medical History Non-pressure chronic ulcer of right ankle with necrosis of muscle Non-pressure chronic 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 layer exposed Non-pressure chronic ulcer of other part of left foot with fat layer exposed Non-pressure chronic ulcer of left ankle with necrosis of muscle Adverse effect of synthetic cannabinoids, initial encounter Avery coma scale score 13-15, at arrival to emergency department Acute alteration in mental status ESRD (end stage renal disease) on dialysis Short Achilles tendon (acquired), left ankle Short Achilles tendon (acquired), right ankle Acquired cavovarus deformity of left foot Acquired cavovarus deformity of right foot Type 2 diabetes mellitus with diabetic polyneuropathy Adult failure to thrive Debility Charcot's joint, right ankle and foot Charcot's joint, left ankle and foot Drowsiness Mental status, decreased Carotid artery stenosis MSSA bacteremia ESRD on hemodialysis Osteomyelitis Anemia in chronic illness Type 2 diabetes mellitus Foot osteomyelitis, left Chronic renal disease, stage 4, severely decreased glomerular filtration rate (GFR) between 15-29 mL/min/1.73 square meter Acute on chronic anemia Chronic ulcer of right foot with necrosis of bone Chronic kidney disease, stage 4 (severe) Diabetes mellitus with diabetic polyneuropathy Diabetic foot ulcers Chronic kidney disease, stage 3b Cellulitis Acute lumbar radiculopathy Essential hypertension Adult failure to thrive COVID-19 (08/28/21) Chronic ulcer of right leg with fat layer exposed Ulcer of left foot with fat layer exposed Chronic ulcer of right foot with fat layer exposed Hyperparathyroidism, secondary renal Iron deficiency anemia Bilateral edema of lower extremity Chronic foot pain Charcot's joint of right foot Diabetes Non-smoker Myocardial infarct Hypertension TIA (transient ischemic attack) Amputation foot, bilat 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 Ulcer of left foot with necrosis of muscle Ulcer of left foot with muscle involvement without evidence of necrosis Anxiety and depression Diabetic infection of left foot Delayed wound healing Non-compliance Diabetic polyneuropathy Ischemic cardiomyopathy Obesity (BMI 30.0-34.9) Acquired varus deformity of left foot Acquired varus deformity of right foot Atherosclerosis of [place] coronary artery of [place] heart without angina pectoris Hemoglobin A1c greater than 9.0% NSTEMI (non-ST elevated myocardial infarction) (09/20/18) GERD (gastroesophageal reflux disease) HLD (hyperlipidemia) Back pain, chronic RLS (restless legs syndrome) Home Medications ?Medication ?Instructions ?Recorded ?Last Taken ?Type paroxetine HCl 20 mg tablet 20 mg PO DAILY DEPRESSION 07/07/21 04/07/22 History bupropion HCl 150 mg 24 hr tablet, 150 mg PO DAILY mood 02/04/22 04/07/22 History extended release sennosides 8.6 mg-docusate sodium 2 tab PO BID PRN PRN Constipation 04/24/22 Unknown Rx 50 mg tablet (Stool #0 tabs Softener-Stimulant Laxative) ascorbic acid (vitamin C) 500 mg 500 mg PO BID supplement 05/05/22 Unknown History tablet (Vitamin C) ferrous sulfate 325 mg (65 mg 325 mg PO .three times a week 07/19/22 Unknown History iron) tablet anemia pantoprazole 40 mg tablet,delayed 40 mg PO BIDCM GERD 07/19/22 Unknown History release gabapentin 100 mg capsule 100 mg PO .COMPLEX PRN pain 11/26/23 Unknown History amlodipine 5 mg tablet 5 mg PO DAILY bp 12/16/23 Unknown History calcitriol 0.5 mcg capsule 0.5 mcg PO .COMPLEX on dialysis 12/16/23 07/09/24 History calcium acetate(phosphat bind) 667 676 mg PO TID is on dialysis 12/16/23 Unknown History mg capsule folic acid 800 mcg tablet 0.8 mg PO DAILY supplement 12/16/23 Unknown History levothyroxine 25 mcg tablet 25 mcg PO DAILY thyroid 12/16/23 Unknown History nitroglycerin 0.4 mg sublingual 0.4 mg sublingual Q5M chest pain 12/16/23 Unknown History tablet (Nitrostat) aspirin 81 mg capsule 81 mg PO DAILY blood thinner #30 12/26/23 Unknown Rx caps atorvastatin 40 mg tablet 40 mg PO DAILY cholesterol 03/18/24 06/26/24 History carvedilol 25 mg tablet 25 mg PO BID blood pressure 03/18/24 Unknown History diphenhydramine HCl 25 mg capsule 25 mg PO Q6H PRN PRN Itching #0 05/21/24 Unknown Rx (Banophen) caps hydralazine 50 mg tablet 50 mg PO TID bp #0 tabs 05/21/24 Unknown Rx insulin lispro 100 unit/mL See Protocol subcut TIDAC blood 05/21/24 Unknown Rx subcutaneous pen (Humalog KwikPen sugar #0 mL (U-100) Insulin) melatonin 3 mg tablet 3 mg PO QHS PRN PRN Insomnia #0 05/21/24 Unknown Rx tabs menthol 0.44 %-zinc oxide 20.6 % 1 applic topical BID skin care #0 05/21/24 Unknown Rx topical ointment (Calmoseptine) grams sucralfate 1 gram tablet 1 g PO TID@0700,1100,1600 05/21/24 Unknown Rx indigestion #0 tabs daptomycin 500 mg intravenous 400 mg IV Q48 40 days #16 ea 06/29/24 Unknown Rx solution ertapenem 1 gram solution for 1 g IV DAILY #16 ea 06/29/24 Unknown Rx injection lorazepam 0.5 mg tablet 0.5 mg PO MoWeFr@1000 #1 TAB 07/02/24 Unknown Rx oxycodone 5 mg tablet 2.5 mg (1/2 x 5 mg) PO Q8H PRN 07/02/24 Unknown Rx pain 3 days #10 tabs acetaminophen 325 mg tablet 650 mg PO Q6H PRN fever or pain 07/09/24 Unknown History Allergy/AdvReac Type Severity Reaction Status Date / Time oxycodone (From OxyContin) Allergy sob Verified 06/27/24 08:27 Penicillins Allergy swelling Verified 06/27/24 08:27 in throat vancomycin Allergy Itching Verified 06/27/24 08:27 metronidazole AdvReac Nausea Verified 06/27/24 08:27 Family History Mother Diabetes CVA (cerebral vascular accident) Brother CAD (coronary artery disease) CABG X 3 Cancer testicular Diabetes Brother CAD (coronary artery disease) CABG X3 Diabetes Brother CAD (coronary artery disease) Stents Diabetes Sister CAD (coronary artery disease) CABG x 3 CVA (cerebral vascular accident) Diabetes Surgical History History of History of foot surgery History of bilateral carpal tunnel release History of rotator cuff surgery History of coronary artery stent placement (12/31/20) Social History household members: none number of children: 2 current occupational status: disabled Smoking Status: Never smoker alcohol intake: never substance use type: does not use caffeine: Yes Type: carbonated beverages Number of servings: 2 ROS ROS Narrative Complete 14 system ROS incomplete as patient was unresponsive but she recovered. Constitutional: Reports fatigue and weakness. No fever. HEENT: Reports systems reviewed and no addt'l complaints, except as documented Respiratory/Chest: No acute shortness of breath or respiratory distress or wheezing. CVS: Denies chest pain pressure or tightness Gastrointestinal: Denies coffee ground emesis, hematemesis or vomiting Genitourinary: On hemodialysis. Makes some urine. Denies burning urination or new urinary tract symptoms Musculoskeletal: Denies acute joint pain or limited range of motion. No acute injury Neurologic: As described in HPI skin: Bilateral ankle and feet Charcot's joint. History of MRSA infection Endocrinology: Reports systems reviewed and no addt'l complaints, except as documented Hematologic/Lymphatic: Reports systems reviewed and no addt'l complaints, except as documented Vital Signs Vital Signs Vital Signs: 07/09/24 11:17 07/09/24 12:32 07/09/24 13:00 Temperature 97 F L 98.2 F Temperature Source Axillary Oral Pulse Rate 76 78 77 Respiratory Rate 14 13 18 Blood Pressure 133/60 H 151/69 H 161/74 H Blood Pressure Mean 84 96 103 Pulse Ox 91 96 100 Oxygen Delivery Method Room Air Room Air Room Air 07/09/24 13:17 Temperature 97.7 F L Temperature Source Pulse Rate 77 Respiratory Rate 18 Blood Pressure 161/74 H Blood Pressure Mean 103 Pulse Ox 100 Oxygen Delivery Method Weight Weight: 156 lb 11.979 oz Body Mass Index (BMI) 27.7 Physical Exam Narrative General: Alert, Oriented x3, Cooperative HEENT: Atraumatic, PERRLA, EOMI, Normocephalic Oral: Oral mucosa dry. No Gingival or Mucosal Lesions/ Ulcerations Neck: Supple, No JVD, Negative Carotid Bruits Chest wall/Lungs: Left upper chest dialysis catheter. Air entry diminished in bilateral lung bases. No crepitation/rhonchi Cardiovascular: Regular rate, Regular Rhythm, Normal S1, Normal S2, No M/G/R Abdomen: Bowel Sounds Present, Soft, Non Tender, Non-Distended : No dysuria. No renal angle tenderness. No suprapubic tenderness. Extremities: No edema, Capillary Refill Less than 3 Seconds Skin: Bilateral feet and ankle is wrapped. Musculoskeletal: Bilateral ankle charchot's joint. No Tenderness to Palpation of Joints or Extremities Neurological: Cranial nerves II-XII grossly intact, DTR 2+/4. No acute focal neurological deficit. Psych/Mental Status: Normal Affect, Appropriate. Results Lab / Micro Data 07/09/24 11:25 07/09/24 11:25 Labs: Laboratory Results - last 24 hr 07/09/24 11:25: WBC 8.7, RBC 3.60 L, Hgb 10.1 L, Hct 33.8 L, MCV 93.9, MCH 28.1, MCHC 29.9 L, RDW Std Deviation 65.4 H, RDW Coeff of Fior 19.1 H, Plt Count 289, MPV 9.5, Immature Gran % (Auto) 1.500 H, Neut % (Auto) 70.3 H, Lymph % (Auto) 13.8 L, [place] % (Auto) 9.5, Eos % (Auto) 4.0, Baso % (Auto) 0.9, Absolute Neuts (auto) 6.1, Absolute Lymphs (auto) 1.20, Nucleated RBC % 0, Anisocytosis 2+, Sodium 140, Potassium 3.4 L, Chloride 100, Carbon Dioxide 30.0, Anion Gap 10, BUN 17, Creatinine 2.97 H, Estim Creat Clear Calc 19.28, Est GFR (MDRD) Af Amer 21 L, Est GFR (MDRD) Non-Af 17 L, BUN/Creatinine Ratio 5.7 L, Glucose 121 H, Calcium 9.4 Imaging Radiology Impression Brain CT 07/09/24 11:30 IMPRESSION: Chronic involutional changes of the brain. Possible acute or chronic punctate infarct in the right thalamus. MRI may be useful. No acute intracranial hemorrhage. Electronically Signed: Scot Penny MD at 12:01 EDT , ADDENDUM: 07/09/24 1211 IMPRESSION: Chronic involutional changes of the brain. Possible acute or chronic punctate infarct in the right thalamus. MRI may be useful. No acute intracranial hemorrhage. N.B. : The above Results were Read Back by Scto Penny MD to Devin Lincoln MD, and understanding confirmed on 07/09/2024 12:04:46 (ET). Electronically Signed: Scot Penny MD at 12:01 EDT , Assessment & Plan Assessment/Plan (1) Acute encephalopathy: PLAN: Plan This is 59-year-old female came to ED in a unresponsive state after suspected seizure episode in [facility] dialysis center while getting IV daptomycin for MRSA infection in feet. She denies prior history of epilepsy 1. Suspected seizure episode complicated with unresponsiveness with abnormal CT finding of possible acute on chronic punctate infarct in right thalamus: Patient is being admitted in PCU. MRI of the brain is ordered as it is unclear whether it is acute or chronic punctate infarct. It is also unclear whether it was seizure episode or abnormal movement but she was unresponsive. Tele- neuroconsult ordered. Stroke alert was not called by ED physician. If MRI comes positive of acute/subacute stroke, will need full workup. TIA order set ordered 2. Subacute ischemic CVA in December 2023: At that time patient had left-sided weakness with slurred speech. MRI brain showed moderate size of subacute nonhemorrhagic infarct in right hemisphere involving posterior on the right frontal, parietal lobe and extending to posterior insula. CTA head and neck showed calcified plaque at the origin of right ICA causing 50 to 69% stenosis less than 50% narrowing at origin of left ICA. HONG was negative for stroke. 2D echo showed no evidence of vegetation. 3. Chronic diabetic infection of right foot: Patient was discharged on 07/04 on daptomycin after she had debridement to the muscle level. No evidence of osteomyelitis at that time. Plan 6 weeks of daptomycin and ertapenem. Consult ID and podiatry 4. ESRD on hemodialysis: On hemodialysis. 5. Diabetes mellitus type 2: Glucose is 121. Fair control. Accu-Chek before meals and at bedtime with Humalog sliding scale coverage and hypoglycemia protocol. 6. Hypothyroidism: On levothyroxine. 7. GERD: PPI 8. DVT prophylaxis: High risk: On heparin 5000 units subcutaneous 3 times daily. Living will/advanced directive/end of life care: Patient does not have living will or advanced directive. After discussion of benefits/risks procedures involved with full code, DNR CC arrest and DNR CC, the patient opted for full code. Patient does want artificial life support including intubation, tube feed, ventilator and/chest compression, central venous catheter, vasopressor and DC shock if needed Total time spent in [id number] encounter in discussion of advanced directive 17 minutes. Laboratory Results 07/09/24 11:25: WBC 8.7, RBC 3.60 L, Hgb 10.1 L, Hct 33.8 L, MCV 93.9, MCH 28.1, MCHC 29.9 L, RDW Std Deviation 65.4 H, RDW Coeff of Fior 19.1 H, Plt Count 289, MPV 9.5, Immature Gran % (Auto) 1.500 H, Neut % (Auto) 70.3 H, Lymph % (Auto) 13.8 L, [place] % (Auto) 9.5, Eos % (Auto) 4.0, Baso % (Auto) 0.9, Absolute Neuts (auto) 6.1, Absolute Lymphs (auto) 1.20, Nucleated RBC % 0, Anisocytosis 2+, Sodium 140, Potassium 3.4 L, Chloride 100, Carbon Dioxide 30.0, Anion Gap 10, BUN 17, Creatinine 2.97 H, Estim Creat Clear Calc 19.28, Est GFR (MDRD) Af Amer 21 L, Est GFR (MDRD) Non-Af 17 L, BUN/Creatinine Ratio 5.7 L, Glucose 121 H, Calcium 9.4 Clinical Impression(s) from Imaging Studies Brain CT 07/09/24 11:30 IMPRESSION: Chronic involutional changes of the brain. Possible acute or chronic punctate infarct in the right thalamus. MRI may be useful. No acute intracranial hemorrhage. Charges/Coding Visit Charges Inpatient E&M: 18626 Init Hosp L3 Procedures Hospitalists Procedures: 20302 Advncd Care Plan 30 Min
--- NOTE | 2024-07-09 13:32 | MRI_ITS ---
EXAM: MR HEAD WITHOUT INTRAVENOUS CONTRAST CLINICAL INDICATION: Seizure. Abnormal CT finding suspected stroke. TECHNIQUE: Multiplanar and multisequence MR images of the brain were obtained without intravenous contrast. COMPARISON: MRI brain without contrast 12/22/2023. CT head without contrast 07/09/2024. FINDINGS: BRAIN AND EXTRA-AXIAL SPACES: Old cortical-based ischemic infarct with cystic encephalomalacia and atrophy involving the right inferior parietal lobule (supramarginal gyrus and angular gyrus) with cortical laminar necrosis and right posterior insular lobe. This was previously acute. Old cortical based ischemic infarct in the right lingual gyrus was present previously. No diffusion restriction to suspect acute or subacute ischemic infarct. Old lacunar infarct in the right thalamus is unchanged. No intra- or extra-axial hemorrhage. No intracranial mass or mass effect. Posterior fossa structures are unremarkable. No hydrocephalus. Basal cisterns are patent. SELLA: Unremarkable. Normal sella turcica, pituitary gland, infundibular stalk, optic chiasm and hypothalamus. AUDITORY SYSTEM: Unremarkable. The internal auditory canals are patent. BONES/JOINTS: Unremarkable. No discrete lytic or blastic abnormalities. SINUSES: Unremarkable as visualized. Clear. MASTOID AIR CELLS: Unremarkable as visualized. Clear. ORBITS: Unremarkable as visualized. Both globes, extraocular muscles, optic nerves and retrobulbar fat appear unremarkable. VASCULATURE: Unremarkable as visualized. Normal flow voids in the major intracranial circulation. MRI/Brain without Contrast IMPRESSION: 1. No MRI evidence of acute or subacute ischemic infarct. 2. Old cortical-based ischemic infarct with cystic encephalomalacia and atrophy and cortical laminar necrosis in the right inferior parietal lobule (supramarginal gyrus and angular gyrus) and old cortical-based ischemic infarct with cystic encephalomalacia and atrophy in the right posterior insular lobe. These were previously acute. 3. Old cortical-based ischemic infarct with cystic encephalomalacia and atrophy in the right lingual gyrus is unchanged. 4. Old lacunar infarct in the right thalamus is unchanged. Electronically Signed: Rik Ellis MD at 15:45 EDT ,
[2024-07-09 14:11] LABS: Magnesium 1.9 mg/dL (1.6-2.6); Phosphorus 1.1 mg/dL (2.5-4.9)
--- NOTE | 2024-07-09 14:15 | CASEMGMT ---
Discharge Planning Per Aron @ [facility], pt is still a resident with them. Rekha Moore DC Planning Asst.
[2024-07-09] MEDS: LORazepam 2 MG/ML Syringe 0.5 MG IV (14:22)
[2024-07-09] MEDS: Potassium Phosphate 21 MM in 0.9% Normal Saline (250mL Bag) 250 ML 84 MM IV (16:12)
[2024-07-09] MEDS: 0.9% Normal Saline (1000mL) 1,000 ML 50 ML IV (16:13)
[2024-07-09] MEDS: Heparin Injection (Vial) 5,000 UNIT/ML VIAL 5000 UNIT SC ×2 (16:57→21:40)
[2024-07-09 17:16] LABS: Bedside Glucose 95 mg/dL (74-106)
[2024-07-09] MEDS: Senna/Docusate Sodium 1 Tablet 2 TABLET PO (21:41)
[2024-07-09 22:32] LABS: Bedside Glucose 130 mg/dL (74-106)
[2024-07-09] MEDS: Acetaminophen 325 MG Tablet 650 MG PO (23:00)
[2024-07-10 03:00] VITALS: BP 140/78; PULSE 78; RESP 16; TEMP 36.6; O2SAT 98
[2024-07-10] MEDS: Heparin Injection (Vial) 5,000 UNIT/ML VIAL 5000 UNIT SC (06:23)
[2024-07-10 06:25] LABS: Absolute Lymphocyte Count 1.17 X10^3/uL (0.83-4.51); Absolute Neutrophil Count 5.1 X10^3/uL (2.0-7.7); Basophil# 0.06 X10^3/uL; Basophil% 0.8 % (0-1); Eosinophil# 0.33 X10^3/uL; Eosinophils% 4.3 % (0-5); Hematocrit 30.8 % (37-47); Hemoglobin 9.2 g/dL (12.0-15.0); Lymphocyte # 1.17 X10^3/ul (0.83-4.51); Lymphocyte % 15.3 % (19-41); Mean Corp Hgb Conc 29.9 g/dL (32-36); Mean Corpuscular Hgb 28.5 pg (27.0-32.0); Mean Corpuscular Volume 95.4 fL (81-99); Mean Platelet Vol. 9.5 fl (6.2-12.0); Monocyte# 0.89 X10^3/uL; Monocyte% 11.6 % (0-10); NRBC Flagged by Analyzer 0 % (0-5); Neutrophil % 66.8 % (47-70); POSITIVE MORPHOLOGY YES; Platelet Count 270 K/mm3 (150-450); RBC Distribution Width CV 19.3 % (11.6-14.6); RBC Distribution Width SD 65.9 fl (35.1-43.9); Red Blood Count 3.23 M/mm3 (4.2-5.4); White Blood Count 7.6 K/mm3 (4.4-11.0)
[2024-07-10] MEDS: Insulin Lispro 100 UNIT/ML INSULN.PEN SC ×2 (06:28→11:23)
[2024-07-10] MEDS: Acetaminophen 325 MG Tablet 650 MG PO ×2 (06:30→12:50)
[2024-07-10 06:48] LABS: Differential Indicated SCAN CRITERIA MET
[2024-07-10 06:53] LABS: Anion Gap 5 (5-15); BUN 31 mg/dL (7-18); BUN/Creat Ratio 7.5 RATIO (10-20); Calcium,Total 8.6 mg/dL (8.5-10.1); Chloride 103 mmol/L (98-107); Cholesterol 164 mg/dL (200); Creatinine, Serum 4.16 mg/dL (0.55-1.02); EST Glomerular Filtration Rate 12 mL/min (>60); Est Glom Filt Rate - Afr Amer 14 mL/min (>60); Estimated Creatinine Clearance 13.49 ml/min; Glucose 190 mg/dL (74-106); High Density Lipoprotein 42 mg/dL; Magnesium 1.8 mg/dL (1.6-2.6); Phosphorus 3.3 mg/dL (2.5-4.9); Potassium 4.4 mmol/L (3.5-5.1); Sodium Level 137 mmol/L (136-145); Triglycerides 275 mg/dL; Very Low Density Lipoprotein 55 mg/dL (5-40)
--- NOTE | 2024-07-10 07:00 | NURSING ---
Noted NS @50ml/hr IV running at bedside rounds but was paused in DEC. Restarted in DEC, bag has roughly 400ml left.
[2024-07-10 07:06] LABS: Bedside Glucose 180 mg/dL (74-106)
[2024-07-10 07:26] LABS: Anisocytosis 2+; Differential Comment SCANNED
[2024-07-10 08:59] VITALS: BP 171/77; PULSE 84; RESP 18; TEMP 36.1; O2SAT 100
[2024-07-10] MEDS: Carvedilol 12.5 MG Tablet PO (09:10)
[2024-07-10] MEDS: Senna/Docusate Sodium 1 Tablet 2 TABLET PO (09:11)
[2024-07-10] MEDS: Paroxetine 20 MG Tablet PO (09:11)
[2024-07-10] MEDS: Aspirin 81 MG TAB.CHEW PO (09:11)
[2024-07-10] MEDS: Levothyroxine 25 MCG TABLET PO (09:11)
[2024-07-10] MEDS: Folic Acid 1 MG Tablet PO (09:11)
[2024-07-10] MEDS: Ascorbic Acid 500 MG Tablet PO (09:11)
[2024-07-10] MEDS: Pantoprazole Sodium 40 MG Tablet PO (09:11)
[2024-07-10 09:17] VITALS: O2SAT 100
[2024-07-10 09:21] VITALS: BMI 26.6
--- NOTE | 2024-07-10 10:21 | CASEMGMT ---
Addendum entered by Rekha Moore 07/10/24 11:07: Jennifer Harris confirmed that pt can return when MR. Rekha Moore DC Planning Asst. Original Note: Discharge Planning Updates sent to Karen Harris with note that patient will return today. Rekha Moore DC Planning Asst.
--- NOTE | 2024-07-10 10:44 | PCM.CONS.GEN ---
Assessment & Plan Assessment/Plan (1) Non-pressure chronic ulcer of right ankle with necrosis of muscle: PLAN: Exam performed. No new onset infection. Wounds to bilateral lower extremity debrided. Right lateral ankle wound was excisionally debrided down to muscle, right plantar foot wound was excisionally debrided down to including level subcutaneous tissue, left plantar foot wound was debrided excisionally down to including level of subcutaneous tissue. This was performed with a 5 mm dermal curette, all nonviable tissue was removed. No anesthesia due to neuropathy. Topical hemostasis obtained. Pre and postdebridement measurements documented nursing notes. Patient tolerated procedure well. Continue antibiotics per infectious disease. Continue nonweightbearing bilateral lower extremity. Continue daily Dakin's dressings at [facility] with compression Follow-up in wound care center in 1 week. (2) Non-pressure chronic ulcer of other part of left foot with fat layer exposed: HPI Consult Data Date of Consult: 07/10/24 HPI Narrative HPI Narrative: DIONY ROCHA, is a 59 F who presents after a period of altered mental status while receiving hemodialysis. Patient has bilateral lower extremity ulcerations been maintaining a nonweightbearing status. Wounds have been improving significantly. Patient denies any constitutional symptoms. [facility] Medical History Non-pressure chronic ulcer of right ankle with necrosis of muscle Non-pressure chronic 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 layer exposed Non-pressure chronic ulcer of other part of left foot with fat layer exposed Non-pressure chronic ulcer of left ankle with necrosis of muscle Adverse effect of synthetic cannabinoids, initial encounter [place] coma scale score 13-15, at arrival to emergency department Acute alteration in mental status ESRD (end stage renal disease) on dialysis Short Achilles tendon (acquired), left ankle Short Achilles tendon (acquired), right ankle Acquired cavovarus deformity of left foot Acquired cavovarus deformity of right foot Type 2 diabetes mellitus with diabetic polyneuropathy Adult failure to thrive Debility Charcot's joint, right ankle and foot Charcot's joint, left ankle and foot Drowsiness Mental status, decreased Carotid artery stenosis MSSA bacteremia ESRD on hemodialysis Osteomyelitis Anemia in chronic illness Type 2 diabetes mellitus Foot osteomyelitis, left Chronic renal disease, stage 4, severely decreased glomerular filtration rate (GFR) between 15-29 mL/min/1.73 square meter Acute on chronic anemia Chronic ulcer of right foot with necrosis of bone Chronic kidney disease, stage 4 (severe) Diabetes mellitus with diabetic polyneuropathy Diabetic foot ulcers Chronic kidney disease, stage 3b Cellulitis Acute lumbar radiculopathy Essential hypertension Adult failure to thrive COVID-19 (08/28/21) Chronic ulcer of right leg with fat layer exposed Ulcer of left foot with fat layer exposed Chronic ulcer of right foot with fat layer exposed Hyperparathyroidism, secondary renal Iron deficiency anemia Bilateral edema of lower extremity Chronic foot pain Charcot's joint of right foot Diabetes Non-smoker Myocardial infarct Hypertension TIA (transient ischemic attack) Amputation foot, bilat 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 Ulcer of left foot with necrosis of muscle Ulcer of left foot with muscle involvement without evidence of necrosis Anxiety and depression Diabetic infection of left foot Delayed wound healing Non-compliance Diabetic polyneuropathy Ischemic cardiomyopathy Obesity (BMI 30.0-34.9) Acquired varus deformity of left foot Acquired varus deformity of right foot Atherosclerosis of [place] coronary artery of [place] heart without angina pectoris Hemoglobin A1c greater than 9.0% NSTEMI (non-ST elevated myocardial infarction) (09/20/18) GERD (gastroesophageal reflux disease) HLD (hyperlipidemia) Back pain, chronic RLS (restless legs syndrome) Home Medications ?Medication ?Instructions ?Recorded ?Last Taken ?Type paroxetine HCl 20 mg tablet 20 mg PO DAILY DEPRESSION 07/07/21 04/07/22 History bupropion HCl 150 mg 24 hr tablet, 150 mg PO DAILY mood 02/04/22 04/07/22 History extended release sennosides 8.6 mg-docusate sodium 2 tab PO BID PRN PRN Constipation 04/24/22 Unknown Rx 50 mg tablet (Stool #0 tabs Softener-Stimulant Laxative) ascorbic acid (vitamin C) 500 mg 500 mg PO BID supplement 05/05/22 Unknown History tablet (Vitamin C) ferrous sulfate 325 mg (65 mg 325 mg PO .three times a week 07/19/22 Unknown History iron) tablet anemia pantoprazole 40 mg tablet,delayed 40 mg PO BIDCM GERD 07/19/22 Unknown History release gabapentin 100 mg capsule 100 mg PO .COMPLEX PRN pain 11/26/23 Unknown History amlodipine 5 mg tablet 5 mg PO DAILY bp 12/16/23 Unknown History calcitriol 0.5 mcg capsule 0.5 mcg PO .COMPLEX on dialysis 12/16/23 07/09/24 History calcium acetate(phosphat bind) 667 676 mg PO TID is on dialysis 12/16/23 Unknown History mg capsule folic acid 800 mcg tablet 0.8 mg PO DAILY supplement 12/16/23 Unknown History levothyroxine 25 mcg tablet 25 mcg PO DAILY thyroid 12/16/23 Unknown History nitroglycerin 0.4 mg sublingual 0.4 mg sublingual Q5M chest pain 12/16/23 Unknown History tablet (Nitrostat) aspirin 81 mg capsule 81 mg PO DAILY blood thinner #30 12/26/23 Unknown Rx caps atorvastatin 40 mg tablet 40 mg PO DAILY cholesterol 03/18/24 06/26/24 History carvedilol 25 mg tablet 25 mg PO BID blood pressure 03/18/24 Unknown History diphenhydramine HCl 25 mg capsule 25 mg PO Q6H PRN PRN Itching #0 05/21/24 Unknown Rx (Banophen) caps hydralazine 50 mg tablet 50 mg PO TID bp #0 tabs 05/21/24 Unknown Rx insulin lispro 100 unit/mL See Protocol subcut TIDAC blood 05/21/24 Unknown Rx subcutaneous pen (Humalog KwikPen sugar #0 mL (U-100) Insulin) melatonin 3 mg tablet 3 mg PO QHS PRN PRN Insomnia #0 05/21/24 Unknown Rx tabs menthol 0.44 %-zinc oxide 20.6 % 1 applic topical BID skin care #0 05/21/24 Unknown Rx topical ointment (Calmoseptine) grams sucralfate 1 gram tablet 1 g PO TID@0700,1100,1600 05/21/24 Unknown Rx indigestion #0 tabs lorazepam 0.5 mg tablet 0.5 mg PO MoWeFr@1000 #1 TAB 07/02/24 Unknown Rx oxycodone 5 mg tablet 2.5 mg (1/2 x 5 mg) PO Q8H PRN 07/02/24 Unknown Rx pain 3 days #10 tabs acetaminophen 325 mg tablet 650 mg PO Q6H PRN fever or pain 07/09/24 Unknown History daptomycin 500 mg intravenous 400 mg IV .MWF 35 days 07/10/24 Unknown Rx solution ertapenem 1 gram solution for 1 g IV .MWF 35 days #15 ea 07/10/24 Unknown Rx injection Allergy/AdvReac Type Severity Reaction Status Date / Time oxycodone (From OxyContin) Allergy sob Verified 06/27/24 08:27 Penicillins Allergy swelling Verified 06/27/24 08:27 in throat vancomycin Allergy Itching Verified 06/27/24 08:27 metronidazole AdvReac Nausea Verified 06/27/24 08:27 Family History Mother Diabetes CVA (cerebral vascular accident) Brother CAD (coronary artery disease) CABG X 3 Cancer testicular Diabetes Brother CAD (coronary artery disease) CABG X3 Diabetes Brother CAD (coronary artery disease) Stents Diabetes Sister CAD (coronary artery disease) CABG x 3 CVA (cerebral vascular accident) Diabetes Surgical History History of History of foot surgery History of bilateral carpal tunnel release History of rotator cuff surgery History of coronary artery stent placement (12/31/20) Social History household members: none number of children: 2 current occupational status: disabled Smoking Status: Never smoker alcohol intake: never substance use type: does not use caffeine: Yes Type: carbonated beverages Number of servings: 2 Physical Exam Narrative Neurovascular status unchanged. Full-thickness wound to right lateral ankle down to level of peroneus brevis tendon. Full-thickness wound plantar right lateral midfoot. Healed lateral left ankle wound. Full-thickness wound plantar left lateral midfoot. Pre and postdebridement measurements documented in nursing notes per Tiffany Campo. No acute signs of infection noted today. No deep probing undermining. Const alert and oriented x3 Lab / Micro Data 07/10/24 06:03 07/10/24 06:03 Labs: Laboratory Results - last 24 hr 07/09/24 11:25: WBC 8.7, RBC 3.60 L, Hgb 10.1 L, Hct 33.8 L, MCV 93.9, MCH 28.1, MCHC 29.9 L, RDW Std Deviation 65.4 H, RDW Coeff of Fior 19.1 H, Plt Count 289, MPV 9.5, Immature Gran % (Auto) 1.500 H, Neut % (Auto) 70.3 H, Lymph % (Auto) 13.8 L, [place] % (Auto) 9.5, Eos % (Auto) 4.0, Baso % (Auto) 0.9, Absolute Neuts (auto) 6.1, Absolute Lymphs (auto) 1.20, Nucleated RBC % 0, Anisocytosis 2+, Sodium 140, Potassium 3.4 L, Chloride 100, Carbon Dioxide 30.0, Anion Gap 10, BUN 17, Creatinine 2.97 H, Estim Creat Clear Calc 19.28, Est GFR (MDRD) Af Amer 21 L, Est GFR (MDRD) Non-Af 17 L, BUN/Creatinine Ratio 5.7 L, Glucose 121 H, Calcium 9.4, Phosphorus 1.1 L*, Magnesium 1.9 07/09/24 16:55: POC Glucose 95 07/09/24 21:39: POC Glucose 130 H 07/10/24 06:03: WBC 7.6, RBC 3.23 L, Hgb 9.2 L, Hct 30.8 L, MCV 95.4, MCH 28.5, MCHC 29.9 L, RDW Std Deviation 65.9 H, RDW Coeff of [place] 19.3 H, Plt Count 270, MPV 9.5, Immature Gran % (Auto) 1.200 H, Neut % (Auto) 66.8, Lymph % (Auto) 15.3 L, [place] % (Auto) 11.6 H, Eos % (Auto) 4.3, Baso % (Auto) 0.8, Absolute Neuts (auto) 5.1, Absolute Lymphs (auto) 1.17, Nucleated RBC % 0, Differential Comment SCANNED, Anisocytosis 2+, Sodium 137, Potassium 4.4, Chloride 103, Carbon Dioxide 29.0, Anion Gap 5, BUN 31 H, Creatinine 4.16 H, Estim Creat Clear Calc 13.49, Est GFR (MDRD) Af Amer 14 L, Est GFR (MDRD) Non-Af 12 L, BUN/Creatinine Ratio 7.5 L, Glucose 190 H, Hemoglobin A1c 5.0, Calcium 8.6, Phosphorus 3.3, Magnesium 1.8, Triglycerides 275 H, Cholesterol 164, LDL Cholesterol 67, VLDL Cholesterol 55 H, HDL Cholesterol 42, TSH 5.600 H 07/10/24 06:22: POC Glucose 180 H Imaging Radiology Impression Brain CT 07/09/24 11:30 IMPRESSION: Chronic involutional changes of the brain. Possible acute or chronic punctate infarct in the right thalamus. MRI may be useful. No acute intracranial hemorrhage. Electronically Signed: Scot Penny MD at 12:01 EDT , ADDENDUM: 07/09/24 1211 IMPRESSION: Chronic involutional changes of the brain. Possible acute or chronic punctate infarct in the right thalamus. MRI may be useful. No acute intracranial hemorrhage. N.B. : The above Results were Read Back by Scot Penny MD to Devin Lincoln MD, and understanding confirmed on 07/09/2024 12:04:46 (ET). Electronically Signed: Scot Penny MD at 12:01 EDT , Brain MRI 07/09/24 13:32 IMPRESSION: 1. No MRI evidence of acute or subacute ischemic infarct. 2. Old cortical-based ischemic infarct with cystic encephalomalacia and atrophy and cortical laminar necrosis in the right inferior parietal lobule (supramarginal gyrus and angular gyrus) and old cortical-based ischemic infarct with cystic encephalomalacia and atrophy in the right posterior insular lobe. These were previously acute. 3. Old cortical-based ischemic infarct with cystic encephalomalacia and atrophy in the right lingual gyrus is unchanged. 4. Old lacunar infarct in the right thalamus is unchanged. Electronically Signed: Rik Ellis MD at 15:45 EDT ,
--- NOTE | 2024-07-10 10:50 | PCM.CONS.GEN ---
Assessment & Plan Assessment/Plan (1) Acute encephalopathy: (2) Diabetic infection of right foot: PLAN: Recent wound cx with MRSA, VRE, and GPR. CT showed possible abscesses last admit. Dr. Julian with podiatry following, bedside I&D done. Not clear if she had a seizure. Neuro consulted. Ertapenem does have a small reported risk of lowering seizure threshold, but other abx options are very limited. Cont dapto/erta, dosed with HD after discharge with weekly labs for 6 week course, stop date 08/08/24. Updated rx. Will follow, thank you, d/w Dr. Vu (3) ESRD (end stage renal disease) on dialysis: HPI Consult Data Date of Consult: 07/10/24 HPI Narrative Reason for Consultation: osteo HPI Narrative: DIONY ROCHA, is a 59 F with ESRD, DM neuropathy, recurrent osteo, admitted 06/27-07/04 with R foot osteo and possible abscesses seen on imaging. Bedside I&D done by podiatry. Discharged on iv dapto/erta dosed with HD. Readmitted 07/09 due to suspected seizure during HD. Reports having LUE shaking episode, then found unresponsive. She remembers her arm shaking but not after that. Admitted here, feeling ok this AM. No fever. Foot much improved. No headache or neck pain. No issues with HD access, no body aches. Full ROS performed and neg except as noted above. [facility] Medical History Non-pressure chronic ulcer of right ankle with necrosis of muscle Non-pressure chronic 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 layer exposed Non-pressure chronic ulcer of other part of left foot with fat layer exposed Non-pressure chronic ulcer of left ankle with necrosis of muscle Adverse effect of synthetic cannabinoids, initial encounter [place] coma scale score 13-15, at arrival to emergency department Acute alteration in mental status ESRD (end stage renal disease) on dialysis Short Achilles tendon (acquired), left ankle Short Achilles tendon (acquired), right ankle Acquired cavovarus deformity of left foot Acquired cavovarus deformity of right foot Type 2 diabetes mellitus with diabetic polyneuropathy Adult failure to thrive Debility Charcot's joint, right ankle and foot Charcot's joint, left ankle and foot Drowsiness Mental status, decreased Carotid artery stenosis MSSA bacteremia ESRD on hemodialysis Osteomyelitis Anemia in chronic illness Type 2 diabetes mellitus Foot osteomyelitis, left Chronic renal disease, stage 4, severely decreased glomerular filtration rate (GFR) between 15-29 mL/min/1.73 square meter Acute on chronic anemia Chronic ulcer of right foot with necrosis of bone Chronic kidney disease, stage 4 (severe) Diabetes mellitus with diabetic polyneuropathy Diabetic foot ulcers Chronic kidney disease, stage 3b Cellulitis Acute lumbar radiculopathy Essential hypertension Adult failure to thrive COVID-19 (08/28/21) Chronic ulcer of right leg with fat layer exposed Ulcer of left foot with fat layer exposed Chronic ulcer of right foot with fat layer exposed Hyperparathyroidism, secondary renal Iron deficiency anemia Bilateral edema of lower extremity Chronic foot pain Charcot's joint of right foot Diabetes Non-smoker Myocardial infarct Hypertension TIA (transient ischemic attack) Amputation foot, bilat 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 Ulcer of left foot with necrosis of muscle Ulcer of left foot with muscle involvement without evidence of necrosis Anxiety and depression Diabetic infection of left foot Delayed wound healing Non-compliance Diabetic polyneuropathy Ischemic cardiomyopathy Obesity (BMI 30.0-34.9) Acquired varus deformity of left foot Acquired varus deformity of right foot Atherosclerosis of [place] coronary artery of [place] heart without angina pectoris Hemoglobin A1c greater than 9.0% NSTEMI (non-ST elevated myocardial infarction) (09/20/18) GERD (gastroesophageal reflux disease) HLD (hyperlipidemia) Back pain, chronic RLS (restless legs syndrome) Home Medications ?Medication ?Instructions ?Recorded ?Last Taken ?Type paroxetine HCl 20 mg tablet 20 mg PO DAILY DEPRESSION 07/07/21 04/07/22 History bupropion HCl 150 mg 24 hr tablet, 150 mg PO DAILY mood 02/04/22 04/07/22 History extended release sennosides 8.6 mg-docusate sodium 2 tab PO BID PRN PRN Constipation 04/24/22 Unknown Rx 50 mg tablet (Stool #0 tabs Softener-Stimulant Laxative) ascorbic acid (vitamin C) 500 mg 500 mg PO BID supplement 05/05/22 Unknown History tablet (Vitamin C) ferrous sulfate 325 mg (65 mg 325 mg PO .three times a week 07/19/22 Unknown History iron) tablet anemia pantoprazole 40 mg tablet,delayed 40 mg PO BIDCM GERD 07/19/22 Unknown History release gabapentin 100 mg capsule 100 mg PO .COMPLEX PRN pain 11/26/23 Unknown History amlodipine 5 mg tablet 5 mg PO DAILY bp 12/16/23 Unknown History calcitriol 0.5 mcg capsule 0.5 mcg PO .COMPLEX on dialysis 12/16/23 07/09/24 History calcium acetate(phosphat bind) 667 676 mg PO TID is on dialysis 12/16/23 Unknown History mg capsule folic acid 800 mcg tablet 0.8 mg PO DAILY supplement 12/16/23 Unknown History levothyroxine 25 mcg tablet 25 mcg PO DAILY thyroid 12/16/23 Unknown History nitroglycerin 0.4 mg sublingual 0.4 mg sublingual Q5M chest pain 12/16/23 Unknown History tablet (Nitrostat) aspirin 81 mg capsule 81 mg PO DAILY blood thinner #30 12/26/23 Unknown Rx caps atorvastatin 40 mg tablet 40 mg PO DAILY cholesterol 03/18/24 06/26/24 History carvedilol 25 mg tablet 25 mg PO BID blood pressure 03/18/24 Unknown History diphenhydramine HCl 25 mg capsule 25 mg PO Q6H PRN PRN Itching #0 05/21/24 Unknown Rx (Banophen) caps hydralazine 50 mg tablet 50 mg PO TID bp #0 tabs 05/21/24 Unknown Rx insulin lispro 100 unit/mL See Protocol subcut TIDAC blood 05/21/24 Unknown Rx subcutaneous pen (Humalog KwikPen sugar #0 mL (U-100) Insulin) melatonin 3 mg tablet 3 mg PO QHS PRN PRN Insomnia #0 05/21/24 Unknown Rx tabs menthol 0.44 %-zinc oxide 20.6 % 1 applic topical BID skin care #0 05/21/24 Unknown Rx topical ointment (Calmoseptine) grams sucralfate 1 gram tablet 1 g PO TID@0700,1100,1600 05/21/24 Unknown Rx indigestion #0 tabs lorazepam 0.5 mg tablet 0.5 mg PO MoWeFr@1000 #1 TAB 07/02/24 Unknown Rx oxycodone 5 mg tablet 2.5 mg (1/2 x 5 mg) PO Q8H PRN 07/02/24 Unknown Rx pain 3 days #10 tabs acetaminophen 325 mg tablet 650 mg PO Q6H PRN fever or pain 07/09/24 Unknown History daptomycin 500 mg intravenous 400 mg IV .MWF 35 days 07/10/24 Unknown Rx solution ertapenem 1 gram solution for 1 g IV .MWF 35 days #15 ea 07/10/24 Unknown Rx injection Allergy/AdvReac Type Severity Reaction Status Date / Time oxycodone (From OxyContin) Allergy sob Verified 06/27/24 08:27 Penicillins Allergy swelling Verified 06/27/24 08:27 in throat vancomycin Allergy Itching Verified 06/27/24 08:27 metronidazole AdvReac Nausea Verified 06/27/24 08:27 Family History Mother Diabetes CVA (cerebral vascular accident) Brother CAD (coronary artery disease) CABG X 3 Cancer testicular Diabetes Brother CAD (coronary artery disease) CABG X3 Diabetes Brother CAD (coronary artery disease) Stents Diabetes Sister CAD (coronary artery disease) CABG x 3 CVA (cerebral vascular accident) Diabetes Surgical History History of History of foot surgery History of bilateral carpal tunnel release History of rotator cuff surgery History of coronary artery stent placement (12/31/20) Social History household members: none number of children: 2 current occupational status: disabled Smoking Status: Never smoker alcohol intake: never substance use type: does not use caffeine: Yes Type: carbonated beverages Number of servings: 2 Physical Exam Const alert, oriented x3 and no apparent distress General Appearance: cooperative HEENT normocephalic and head/scalp atraumatic Eyes PERRL and EOMs intact bilaterally Neck supple and No nodes Resp normal air movement and clear to auscultation bilaterally Cardio regular rate and regular rhythm GI soft to palpation, non-tender and non-distended Extremity General Extremity: edema Skin Skin Narrative: foot wrapped Neuro CN's II-XII intact bilaterally Medical Records Data Attestation: I reviewed the patient's medical records Lab / Micro Data 07/10/24 06:03 07/10/24 06:03 Labs: Laboratory Results - last 24 hr 07/09/24 11:25: WBC 8.7, RBC 3.60 L, Hgb 10.1 L, Hct 33.8 L, MCV 93.9, MCH 28.1, MCHC 29.9 L, RDW Std Deviation 65.4 H, RDW Coeff of Fior 19.1 H, Plt Count 289, MPV 9.5, Immature Gran % (Auto) 1.500 H, Neut % (Auto) 70.3 H, Lymph % (Auto) 13.8 L, [place] % (Auto) 9.5, Eos % (Auto) 4.0, Baso % (Auto) 0.9, Absolute Neuts (auto) 6.1, Absolute Lymphs (auto) 1.20, Nucleated RBC % 0, Anisocytosis 2+, Sodium 140, Potassium 3.4 L, Chloride 100, Carbon Dioxide 30.0, Anion Gap 10, BUN 17, Creatinine 2.97 H, Estim Creat Clear Calc 19.28, Est GFR (MDRD) Af Amer 21 L, Est GFR (MDRD) Non-Af 17 L, BUN/Creatinine Ratio 5.7 L, Glucose 121 H, Calcium 9.4, Phosphorus 1.1 L*, Magnesium 1.9 07/09/24 16:55: POC Glucose 95 07/09/24 21:39: POC Glucose 130 H 07/10/24 06:03: WBC 7.6, RBC 3.23 L, Hgb 9.2 L, Hct 30.8 L, MCV 95.4, MCH 28.5, MCHC 29.9 L, RDW Std Deviation 65.9 H, RDW Coeff of [place] 19.3 H, Plt Count 270, MPV 9.5, Immature Gran % (Auto) 1.200 H, Neut % (Auto) 66.8, Lymph % (Auto) 15.3 L, [place] % (Auto) 11.6 H, Eos % (Auto) 4.3, Baso % (Auto) 0.8, Absolute Neuts (auto) 5.1, Absolute Lymphs (auto) 1.17, Nucleated RBC % 0, Differential Comment SCANNED, Anisocytosis 2+, Sodium 137, Potassium 4.4, Chloride 103, Carbon Dioxide 29.0, Anion Gap 5, BUN 31 H, Creatinine 4.16 H, Estim Creat Clear Calc 13.49, Est GFR (MDRD) Af Amer 14 L, Est GFR (MDRD) Non-Af 12 L, BUN/Creatinine Ratio 7.5 L, Glucose 190 H, Hemoglobin A1c 5.0, Calcium 8.6, Phosphorus 3.3, Magnesium 1.8, Triglycerides 275 H, Cholesterol 164, LDL Cholesterol 67, VLDL Cholesterol 55 H, HDL Cholesterol 42, TSH 5.600 H 07/10/24 06:22: POC Glucose 180 H Imaging Radiology Impression Brain CT 07/09/24 11:30 IMPRESSION: Chronic involutional changes of the brain. Possible acute or chronic punctate infarct in the right thalamus. MRI may be useful. No acute intracranial hemorrhage. Electronically Signed: Scot Penny MD at 12:01 EDT , ADDENDUM: 07/09/24 1211 IMPRESSION: Chronic involutional changes of the brain. Possible acute or chronic punctate infarct in the right thalamus. MRI may be useful. No acute intracranial hemorrhage. N.B. : The above Results were Read Back by Scot Penny MD to Devin Lincoln MD, and understanding confirmed on 07/09/2024 12:04:46 (ET). Electronically Signed: Scot Penny MD at 12:01 EDT , Brain MRI 07/09/24 13:32 IMPRESSION: 1. No MRI evidence of acute or subacute ischemic infarct. 2. Old cortical-based ischemic infarct with cystic encephalomalacia and atrophy and cortical laminar necrosis in the right inferior parietal lobule (supramarginal gyrus and angular gyrus) and old cortical-based ischemic infarct with cystic encephalomalacia and atrophy in the right posterior insular lobe. These were previously acute. 3. Old cortical-based ischemic infarct with cystic encephalomalacia and atrophy in the right lingual gyrus is unchanged. 4. Old lacunar infarct in the right thalamus is unchanged. Electronically Signed: Rik Ellis MD at 15:45 EDT ,
[2024-07-10] MEDS: FLU VACC 2024-25(6MOS UP)/PF 45 MCG/0.5 ML SYRINGE IM (11:23)
[2024-07-10] MEDS: Sucralfate 1 GM Tablet PO (11:24)
--- NOTE | 2024-07-10 11:29 | WOUNDNOTE ---
wound photo: right lateral foot/ankle
--- NOTE | 2024-07-10 11:29 | WOUNDNOTE ---
wound photo: right plantar foot
--- NOTE | 2024-07-10 11:30 | WOUNDNOTE ---
wound photo: left plantar foot
--- NOTE | 2024-07-10 11:31 | WOUNDNOTE ---
wound photo: left lateral foot/ankle
--- NOTE | 2024-07-10 11:36 | CON.PCM.RE_ITS ---
Assessment & Plan Assessment/Plan (1) ESRD (end stage renal disease) on dialysis: PLAN: Plan This is an 59-year-old female with past medical history significant for ESRD on hemodialysis Tuesday at [facility] followed by Dr. Flynn, admitted for altered mental status changes and seizure-like activity. Patient dialyzed yesterday. There is no acute indication for [employer] today, next dialysis will be tomorrow via tunneled hemodialysis catheter. Patient has history of diabetic foot ulcers with recent wound culture MRSA/VRE, she is receiving daptomycin and ertapenem post HD per ID recommendations with stop date 08/08/2024. Patient has history of anemia of chronic disease, hemoglobin is 9.2. Will monitor hemoglobin trends. Further orders forthcoming as hospitalization evolves, thank you for allowing us participate in the care of Ms. Carrillo. HPI Consult Data Date of Consult: 07/10/24 HPI Narrative HPI Narrative: DIONY CARRILLO, is a 59 F with past medical history significant for ESRD who dialyzes at [facility] in [place] followed by Dr. Flynn who was brought to the emergency room from the dialysis center yesterday as patient was noted to have seizure-like activity and decreased responsiveness. Patient was admitted for further evaluation and treatment. This morning patient is alert and oriented. She remembers her left arm moving during dialysis. She denies any other complaints. [facility] Medical History Non-pressure chronic ulcer of right ankle with necrosis of muscle Non-pressure chronic 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 layer exposed Non-pressure chronic ulcer of other part of left foot with fat layer exposed Non-pressure chronic ulcer of left ankle with necrosis of muscle Adverse effect of synthetic cannabinoids, initial encounter Avery coma scale score 13-15, at arrival to emergency department Acute alteration in mental status ESRD (end stage renal disease) on dialysis Short Achilles tendon (acquired), left ankle Short Achilles tendon (acquired), right ankle Acquired cavovarus deformity of left foot Acquired cavovarus deformity of right foot Type 2 diabetes mellitus with diabetic polyneuropathy Adult failure to thrive Debility Charcot's joint, right ankle and foot Charcot's joint, left ankle and foot Drowsiness Mental status, decreased Carotid artery stenosis MSSA bacteremia ESRD on hemodialysis Osteomyelitis Anemia in chronic illness Type 2 diabetes mellitus Foot osteomyelitis, left Chronic renal disease, stage 4, severely decreased glomerular filtration rate (GFR) between 15-29 mL/min/1.73 square meter Acute on chronic anemia Chronic ulcer of right foot with necrosis of bone Chronic kidney disease, stage 4 (severe) Diabetes mellitus with diabetic polyneuropathy Diabetic foot ulcers Chronic kidney disease, stage 3b Cellulitis Acute lumbar radiculopathy Essential hypertension Adult failure to thrive COVID-19 (08/28/21) Chronic ulcer of right leg with fat layer exposed Ulcer of left foot with fat layer exposed Chronic ulcer of right foot with fat layer exposed Hyperparathyroidism, secondary renal Iron deficiency anemia Bilateral edema of lower extremity Chronic foot pain Charcot's joint of right foot Diabetes Non-smoker Myocardial infarct Hypertension TIA (transient ischemic attack) Amputation foot, bilat 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 Ulcer of left foot with necrosis of muscle Ulcer of left foot with muscle involvement without evidence of necrosis Anxiety and depression Diabetic infection of left foot Delayed wound healing Non-compliance Diabetic polyneuropathy Ischemic cardiomyopathy Obesity (BMI 30.0-34.9) Acquired varus deformity of left foot Acquired varus deformity of right foot Atherosclerosis of [place] coronary artery of [place] heart without angina pectoris Hemoglobin A1c greater than 9.0% NSTEMI (non-ST elevated myocardial infarction) (09/20/18) GERD (gastroesophageal reflux disease) HLD (hyperlipidemia) Back pain, chronic RLS (restless legs syndrome) Home Medications ?Medication ?Instructions ?Recorded ?Last Taken ?Type paroxetine HCl 20 mg tablet 20 mg PO DAILY DEPRESSION 07/07/21 04/07/22 History bupropion HCl 150 mg 24 hr tablet, 150 mg PO DAILY mood 02/04/22 04/07/22 History extended release sennosides 8.6 mg-docusate sodium 2 tab PO BID PRN PRN Constipation 04/24/22 Unknown Rx 50 mg tablet (Stool #0 tabs Softener-Stimulant Laxative) ascorbic acid (vitamin C) 500 mg 500 mg PO BID supplement 05/05/22 Unknown History tablet (Vitamin C) ferrous sulfate 325 mg (65 mg 325 mg PO .three times a week 07/19/22 Unknown History iron) tablet anemia pantoprazole 40 mg tablet,delayed 40 mg PO BIDCM GERD 07/19/22 Unknown History release gabapentin 100 mg capsule 100 mg PO .COMPLEX PRN pain 11/26/23 Unknown History amlodipine 5 mg tablet 5 mg PO DAILY bp 12/16/23 Unknown History calcitriol 0.5 mcg capsule 0.5 mcg PO .COMPLEX on dialysis 12/16/23 07/09/24 History calcium acetate(phosphat bind) 667 676 mg PO TID is on dialysis 12/16/23 Unknown History mg capsule folic acid 800 mcg tablet 0.8 mg PO DAILY supplement 12/16/23 Unknown History levothyroxine 25 mcg tablet 25 mcg PO DAILY thyroid 12/16/23 Unknown History nitroglycerin 0.4 mg sublingual 0.4 mg sublingual Q5M chest pain 12/16/23 Unknown History tablet (Nitrostat) aspirin 81 mg capsule 81 mg PO DAILY blood thinner #30 12/26/23 Unknown Rx caps atorvastatin 40 mg tablet 40 mg PO DAILY cholesterol 03/18/24 06/26/24 History carvedilol 25 mg tablet 25 mg PO BID blood pressure 03/18/24 Unknown History diphenhydramine HCl 25 mg capsule 25 mg PO Q6H PRN PRN Itching #0 05/21/24 Unknown Rx (Banophen) caps hydralazine 50 mg tablet 50 mg PO TID bp #0 tabs 05/21/24 Unknown Rx insulin lispro 100 unit/mL See Protocol subcut TIDAC blood 05/21/24 Unknown Rx subcutaneous pen (Humalog KwikPen sugar #0 mL (U-100) Insulin) melatonin 3 mg tablet 3 mg PO QHS PRN PRN Insomnia #0 05/21/24 Unknown Rx tabs menthol 0.44 %-zinc oxide 20.6 % 1 applic topical BID skin care #0 05/21/24 Unknown Rx topical ointment (Calmoseptine) grams sucralfate 1 gram tablet 1 g PO TID@0700,1100,1600 05/21/24 Unknown Rx indigestion #0 tabs lorazepam 0.5 mg tablet 0.5 mg PO MoWeFr@1000 #1 TAB 07/02/24 Unknown Rx oxycodone 5 mg tablet 2.5 mg (1/2 x 5 mg) PO Q8H PRN 07/02/24 Unknown Rx pain 3 days #10 tabs acetaminophen 325 mg tablet 650 mg PO Q6H PRN fever or pain 07/09/24 Unknown History daptomycin 500 mg intravenous 400 mg IV .MWF 35 days 07/10/24 Unknown Rx solution ertapenem 1 gram solution for 1 g IV .MWF 35 days #15 ea 07/10/24 Unknown Rx injection Allergy/AdvReac Type Severity Reaction Status Date / Time oxycodone (From OxyContin) Allergy sob Verified 06/27/24 08:27 Penicillins Allergy swelling Verified 06/27/24 08:27 in throat vancomycin Allergy Itching Verified 06/27/24 08:27 metronidazole AdvReac Nausea Verified 06/27/24 08:27 Family History Mother Diabetes CVA (cerebral vascular accident) Brother CAD (coronary artery disease) CABG X 3 Cancer testicular Diabetes Brother CAD (coronary artery disease) CABG X3 Diabetes Brother CAD (coronary artery disease) Stents Diabetes Sister CAD (coronary artery disease) CABG x 3 CVA (cerebral vascular accident) Diabetes Surgical History History of History of foot surgery History of bilateral carpal tunnel release History of rotator cuff surgery History of coronary artery stent placement (12/31/20) Social History household members: none number of children: 2 current occupational status: disabled Smoking Status: Never smoker alcohol intake: never substance use type: does not use caffeine: Yes Type: carbonated beverages Number of servings: 2 ROS ROS Narrative As in HPI Physical Exam Narrative Alert and oriented x 3, no apparent distress S1, S2, RRR Lung sounds clear Abdomen soft, nontender no edema. wraps intact to b/l feet tunneled HD catheter dressing C/D/I Lab / Micro Data 07/10/24 06:03 07/10/24 06:03 Labs: Laboratory Results - last 24 hr 07/09/24 11:25: WBC 8.7, RBC 3.60 L, Hgb 10.1 L, Hct 33.8 L, MCV 93.9, MCH 28.1, MCHC 29.9 L, RDW Std Deviation 65.4 H, RDW Coeff of Fior 19.1 H, Plt Count 289, MPV 9.5, Immature Gran % (Auto) 1.500 H, Neut % (Auto) 70.3 H, Lymph % (Auto) 13.8 L, Heard % (Auto) 9.5, Eos % (Auto) 4.0, Baso % (Auto) 0.9, Absolute Neuts (auto) 6.1, Absolute Lymphs (auto) 1.20, Nucleated RBC % 0, Anisocytosis 2+, Sodium 140, Potassium 3.4 L, Chloride 100, Carbon Dioxide 30.0, Anion Gap 10, BUN 17, Creatinine 2.97 H, Estim Creat Clear Calc 19.28, Est GFR (MDRD) Af Amer 21 L, Est GFR (MDRD) Non-Af 17 L, BUN/Creatinine Ratio 5.7 L, Glucose 121 H, Calcium 9.4, Phosphorus 1.1 L*, Magnesium 1.9 07/09/24 16:55: POC Glucose 95 07/09/24 21:39: POC Glucose 130 H 07/10/24 06:03: WBC 7.6, RBC 3.23 L, Hgb 9.2 L, Hct 30.8 L, MCV 95.4, MCH 28.5, MCHC 29.9 L, RDW Std Deviation 65.9 H, RDW Coeff of Fior 19.3 H, Plt Count 270, MPV 9.5, Immature Gran % (Auto) 1.200 H, Neut % (Auto) 66.8, Lymph % (Auto) 15.3 L, Heard % (Auto) 11.6 H, Eos % (Auto) 4.3, Baso % (Auto) 0.8, Absolute Neuts (auto) 5.1, Absolute Lymphs (auto) 1.17, Nucleated RBC % 0, Differential Comment SCANNED, Anisocytosis 2+, Sodium 137, Potassium 4.4, Chloride 103, Carbon Dioxide 29.0, Anion Gap 5, BUN 31 H, Creatinine 4.16 H, Estim Creat Clear Calc 13.49, Est GFR (MDRD) Af Amer 14 L, Est GFR (MDRD) Non-Af 12 L, BUN/Creatinine Ratio 7.5 L, Glucose 190 H, Hemoglobin A1c 5.0, Calcium 8.6, Phosphorus 3.3, Magnesium 1.8, Triglycerides 275 H, Cholesterol 164, LDL Cholesterol 67, VLDL Cholesterol 55 H, HDL Cholesterol 42, TSH 5.600 H 07/10/24 06:22: POC Glucose 180 H Imaging Radiology Impression Brain CT 07/09/24 11:30 IMPRESSION: Chronic involutional changes of the brain. Possible acute or chronic punctate infarct in the right thalamus. MRI may be useful. No acute intracranial hemorrhage. Electronically Signed: Scot Penny MD at 12:01 EDT , ADDENDUM: 07/09/24 1211 IMPRESSION: Chronic involutional changes of the brain. Possible acute or chronic punctate infarct in the right thalamus. MRI may be useful. No acute intracranial hemorrhage. N.B. : The above Results were Read Back by Scot Penny MD to Devin Lincoln MD, and understanding confirmed on 07/09/2024 12:04:46 (ET). Electronically Signed: Scot Penny MD at 12:01 EDT , Brain MRI 07/09/24 13:32 IMPRESSION: 1. No MRI evidence of acute or subacute ischemic infarct. 2. Old cortical-based ischemic infarct with cystic encephalomalacia and atrophy and cortical laminar necrosis in the right inferior parietal lobule (supramarginal gyrus and angular gyrus) and old cortical-based ischemic infarct with cystic encephalomalacia and atrophy in the right posterior insular lobe. These were previously acute. 3. Old cortical-based ischemic infarct with cystic encephalomalacia and atrophy in the right lingual gyrus is unchanged. 4. Old lacunar infarct in the right thalamus is unchanged. Electronically Signed: Rik Ellis MD at 15:45 EDT ,
[2024-07-10 12:18] LABS: Bedside Glucose 215 mg/dL (74-106)
--- NOTE | 2024-07-10 12:54 | NEURO.CONS ---
Assessment and Plan: Neuro Assessment/Plan DIONY ROCHA is a 59 F with a past medical history of ESRD onHD, MRSA, R MCA stroke, being evaluated by Teleneurology for seizure. Descritpion consistent with epileptic seizure, most likely arising from area of prior stroke. Seizure threshold may have been lowered by Ertapenum, but would not change medication as she also has multiple other reasons to have seizure. Diagnosis: Location related Epilepsy. Plan: Start Keppra 500 mg daily with extra 500 mg dose after dialysis Agree with EEG. No need for further neuro imaging from neurology standpoint. Discussed seizure precautions Follow up with neurology in outpatient setting. Neurology will sign off I personally attended this patient and spent a total time of 25 minutes evaluating this patient including clinical assessment, review of chart, medical history imaging, and determining appropriate treatment and workup. HPI Consult Data Date of Consult: 07/10/24 HPI Narrative HPI Narrative: DIONY ROCHA, is a 59 F with history of ESRD on HID, MRSA, R MCA who presents with seizure. Patient was at dialysis, she had finished her session but was getting IV antibiotics. [place] her left arm start to shake, this was the last thing she remembers. Unclear if there were further clinical signs. After seizure she was post-ictal for about an hour. She has never had a seizure before. Does report mild residual right hand weakness from her prior stroke. Today she is back to her baseline. All questions were answered. COUNT INCLUDES THE [facility] Medical History Non-pressure chronic ulcer of right ankle with necrosis of muscle Non-pressure chronic 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 layer exposed Non-pressure chronic ulcer of other part of left foot with fat layer exposed Non-pressure chronic ulcer of left ankle with necrosis of muscle Adverse effect of synthetic cannabinoids, initial encounter Avery coma scale score 13-15, at arrival to emergency department Acute alteration in mental status ESRD (end stage renal disease) on dialysis Short Achilles tendon (acquired), left ankle Short Achilles tendon (acquired), right ankle Acquired cavovarus deformity of left foot Acquired cavovarus deformity of right foot Type 2 diabetes mellitus with diabetic polyneuropathy Adult failure to thrive Debility Charcot's joint, right ankle and foot Charcot's joint, left ankle and foot Drowsiness Mental status, decreased Carotid artery stenosis MSSA bacteremia ESRD on hemodialysis Osteomyelitis Anemia in chronic illness Type 2 diabetes mellitus Foot osteomyelitis, left Chronic renal disease, stage 4, severely decreased glomerular filtration rate (GFR) between 15-29 mL/min/1.73 square meter Acute on chronic anemia Chronic ulcer of right foot with necrosis of bone Chronic kidney disease, stage 4 (severe) Diabetes mellitus with diabetic polyneuropathy Diabetic foot ulcers Chronic kidney disease, stage 3b Cellulitis Acute lumbar radiculopathy Essential hypertension Adult failure to thrive COVID-19 (08/28/21) Chronic ulcer of right leg with fat layer exposed Ulcer of left foot with fat layer exposed Chronic ulcer of right foot with fat layer exposed Hyperparathyroidism, secondary renal Iron deficiency anemia Bilateral edema of lower extremity Chronic foot pain Charcot's joint of right foot Diabetes Non-smoker Myocardial infarct Hypertension TIA (transient ischemic attack) Amputation foot, bilat 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 Ulcer of left foot with necrosis of muscle Ulcer of left foot with muscle involvement without evidence of necrosis Anxiety and depression Diabetic infection of left foot Delayed wound healing Non-compliance Diabetic polyneuropathy Ischemic cardiomyopathy Obesity (BMI 30.0-34.9) Acquired varus deformity of left foot Acquired varus deformity of right foot Atherosclerosis of [place] coronary artery of [place] heart without angina pectoris Hemoglobin A1c greater than 9.0% NSTEMI (non-ST elevated myocardial infarction) (09/20/18) GERD (gastroesophageal reflux disease) HLD (hyperlipidemia) Back pain, chronic RLS (restless legs syndrome) Home Medications ?Medication ?Instructions ?Recorded ?Last Taken ?Type paroxetine HCl 20 mg tablet 20 mg PO DAILY DEPRESSION 07/07/21 04/07/22 History bupropion HCl 150 mg 24 hr tablet, 150 mg PO DAILY mood 02/04/22 04/07/22 History extended release sennosides 8.6 mg-docusate sodium 2 tab PO BID PRN PRN Constipation 04/24/22 Unknown Rx 50 mg tablet (Stool #0 tabs Softener-Stimulant Laxative) ascorbic acid (vitamin C) 500 mg 500 mg PO BID supplement 05/05/22 Unknown History tablet (Vitamin C) ferrous sulfate 325 mg (65 mg 325 mg PO .three times a week 07/19/22 Unknown History iron) tablet anemia pantoprazole 40 mg tablet,delayed 40 mg PO BIDCM GERD 07/19/22 Unknown History release gabapentin 100 mg capsule 100 mg PO .COMPLEX PRN pain 11/26/23 Unknown History amlodipine 5 mg tablet 5 mg PO DAILY bp 12/16/23 Unknown History calcitriol 0.5 mcg capsule 0.5 mcg PO .COMPLEX on dialysis 12/16/23 07/09/24 History calcium acetate(phosphat bind) 667 676 mg PO TID is on dialysis 12/16/23 Unknown History mg capsule folic acid 800 mcg tablet 0.8 mg PO DAILY supplement 12/16/23 Unknown History levothyroxine 25 mcg tablet 25 mcg PO DAILY thyroid 12/16/23 Unknown History nitroglycerin 0.4 mg sublingual 0.4 mg sublingual Q5M chest pain 12/16/23 Unknown History tablet (Nitrostat) aspirin 81 mg capsule 81 mg PO DAILY blood thinner #30 12/26/23 Unknown Rx caps atorvastatin 40 mg tablet 40 mg PO DAILY cholesterol 03/18/24 06/26/24 History carvedilol 25 mg tablet 25 mg PO BID blood pressure 03/18/24 Unknown History diphenhydramine HCl 25 mg capsule 25 mg PO Q6H PRN PRN Itching #0 05/21/24 Unknown Rx (Banophen) caps hydralazine 50 mg tablet 50 mg PO TID bp #0 tabs 05/21/24 Unknown Rx insulin lispro 100 unit/mL See Protocol subcut TIDAC blood 05/21/24 Unknown Rx subcutaneous pen (Humalog KwikPen sugar #0 mL (U-100) Insulin) melatonin 3 mg tablet 3 mg PO QHS PRN PRN Insomnia #0 05/21/24 Unknown Rx tabs menthol 0.44 %-zinc oxide 20.6 % 1 applic topical BID skin care #0 05/21/24 Unknown Rx topical ointment (Calmoseptine) grams sucralfate 1 gram tablet 1 g PO TID@0700,1100,1600 05/21/24 Unknown Rx indigestion #0 tabs lorazepam 0.5 mg tablet 0.5 mg PO MoWeFr@1000 #1 TAB 07/02/24 Unknown Rx oxycodone 5 mg tablet 2.5 mg (1/2 x 5 mg) PO Q8H PRN 07/02/24 Unknown Rx pain 3 days #10 tabs acetaminophen 325 mg tablet 650 mg PO Q6H PRN fever or pain 07/09/24 Unknown History daptomycin 500 mg intravenous 400 mg IV .MWF 35 days 07/10/24 Unknown Rx solution ertapenem 1 gram solution for 1 g IV .MWF 35 days #15 ea 07/10/24 Unknown Rx injection Allergy/AdvReac Type Severity Reaction Status Date / Time oxycodone (From OxyContin) Allergy sob Verified 06/27/24 08:27 Penicillins Allergy swelling Verified 06/27/24 08:27 in throat vancomycin Allergy Itching Verified 06/27/24 08:27 metronidazole AdvReac Nausea Verified 06/27/24 08:27 Family History Mother Diabetes CVA (cerebral vascular accident) Brother CAD (coronary artery disease) CABG X 3 Cancer testicular Diabetes Brother CAD (coronary artery disease) CABG X3 Diabetes Brother CAD (coronary artery disease) Stents Diabetes Sister CAD (coronary artery disease) CABG x 3 CVA (cerebral vascular accident) Diabetes Surgical History History of History of foot surgery History of bilateral carpal tunnel release History of rotator cuff surgery History of coronary artery stent placement (12/31/20) Social History household members: none number of children: 2 current occupational status: disabled Smoking Status: Never smoker alcohol intake: never substance use type: does not use caffeine: Yes Type: carbonated beverages Number of servings: 2 Vital Signs Vital Signs Vital Signs: 07/09/24 13:00 07/09/24 13:17 07/09/24 14:00 Temperature 97.7 F L Temperature Source Pulse Rate 77 77 78 Respiratory Rate 18 18 18 Respiratory Effort Respiratory Depth Respiratory Pattern Blood Pressure 161/74 H 161/74 H 166/89 H Blood Pressure Mean 103 103 114 Blood Pressure Source Blood Pressure Position Blood Pressure Location Pulse Ox 100 100 95 Oxygen Delivery Method Room Air Nasal Cannula Oxygen Flow Rate (L/min) 07/09/24 14:44 07/09/24 14:56 07/09/24 15:03 Temperature Temperature Source Pulse Rate 80 77 79 Respiratory Rate 14 16 Respiratory Effort Respiratory Depth Respiratory Pattern Blood Pressure 170/82 H 147/66 H 183/110 H Blood Pressure Mean 111 93 134 Blood Pressure Source Monitor Monitor Monitor Blood Pressure Position Supine Supine Supine Blood Pressure Location Right Arm Right Arm Right Arm Pulse Ox 99 97 99 Oxygen Delivery Method Nasal Cannula Room Air Room Air Oxygen Flow Rate (L/min) 2 07/09/24 16:00 07/09/24 16:03 07/09/24 16:04 Temperature 98.2 F Temperature Source Oral Pulse Rate 76 Respiratory Rate 17 Respiratory Effort Normal Non-Labored Respiratory Depth Normal Respiratory Pattern Normal Blood Pressure 183/74 H Blood Pressure Mean 110 Blood Pressure Source Monitor Blood Pressure Position Semi-Fowlers Blood Pressure Location Right Arm Pulse Ox 100 Oxygen Delivery Method Nasal Cannula Nasal Cannula Room Air Oxygen Flow Rate (L/min) 3 3 07/09/24 21:00 07/09/24 21:50 07/10/24 02:40 Temperature 97.9 F Temperature Source Oral Pulse Rate 74 Respiratory Rate 17 Respiratory Effort Non-Labored Non-Labored Respiratory Depth Respiratory Pattern Blood Pressure 140/73 H Blood Pressure Mean 95 Blood Pressure Source Monitor Blood Pressure Position Semi-Fowlers Blood Pressure Location Right Arm Pulse Ox 99 Oxygen Delivery Method Nasal Cannula Nasal Cannula Nasal Cannula Oxygen Flow Rate (L/min) 3 3 3 07/10/24 03:00 07/10/24 08:59 07/10/24 09:01 Temperature 97.9 F 97 F L Temperature Source Oral Temporal Pulse Rate 78 84 Respiratory Rate 16 18 Respiratory Effort Normal Non-Labored Respiratory Depth Normal Respiratory Pattern Normal Blood Pressure 140/78 H 171/77 H Blood Pressure Mean 98 108 Blood Pressure Source Monitor Monitor Blood Pressure Position Semi-Fowlers Semi-Fowlers Blood Pressure Location Right Arm Right Arm Pulse Ox 98 100 Oxygen Delivery Method Nasal Cannula Nasal Cannula Nasal Cannula Oxygen Flow Rate (L/min) 3 2 07/10/24 09:17 07/10/24 09:19 Temperature Temperature Source Pulse Rate Respiratory Rate Respiratory Effort Respiratory Depth Respiratory Pattern Blood Pressure Blood Pressure Mean Blood Pressure Source Blood Pressure Position Blood Pressure Location Pulse Ox 100 Oxygen Delivery Method Nasal Cannula Room Air Oxygen Flow Rate (L/min) 2 Weight Weight: 68.1 kg Body Mass Index (BMI) 26.6 EEG Results Procedure Details EEG Procedure Details: DIONY ROCHA is a 59 year old F with a past medical history of , who presents for evaluation of Electroencephalogram on DATE at TIME NIHSS NIHSS Nursing Documentation NIHSS Nursing Documentation: NIHSS: Ischemic Stroke/TIA Start: 07/09/24 15:49 Text: For PCU Patients: NIH and Neuro Check every 4 Status: Complete hours, PRN and with change in RN caregiver. Freq: [id number] Protocol: Activity Type Activity Date Activity User E-sign Co-sign Detail Recorded Client Recorded Date Recorded By Document 07/09/24 16:03 desktop 07/09/24 16:08 07/09/24 16:03 NIH Stroke Scale [NIHSS] A score of 0 is normal or asymptomatic . Total possible score is 42. Inpatient: RN or Physician to activate a stroke alert for onset of new stroke symptoms or with NIHSS increase >/= 3 points. Following change in neurological status, NIHSS will be performed per physician order or more frequently PRN. -1a. Level of Consciousness Alert; keenly responsive -1b. LOC Questions Answers BOTH questions correctly. -1c. LOC Commands Performs both tasks correctly . -2. Best Gaze Normal -3. Visual No visual loss -4. Facial Palsy Normal symmetrical movements -5a. Left Arm No drift; arm holds 90 (or 45 ) degrees for full 10 seconds -5b. Right Arm No drift; arm holds 90 (or 45 ) degrees for full 10 seconds -6a. Left Leg No drift; leg holds 30-degree position for full 5 seconds -6b. Right Leg No drift; leg holds 30-degree position for full 5 seconds -7. Limb Ataxia Absent -8. Sensory Normal; no sensory loss -9. Best Language No aphasia; normal -10. Dysarthria Normal -11. Extinction and Inattention No abnormality -Total 0 Query Text:A score of 0 is normal or asymptomatic. Total possible score is 42 . ED: Notify Physician for NIHSS increase by > / = 3 points. Inpatient: RN or Physician to activate a stroke alert for NIHSS increase of > / = 3 points. Coma Scale [Assess] -Eye Opening Spontaneous -Motor Obeys Commands -Verbal Oriented [Total] -Coma Scale Total 15 Physical Exam Neuro Sensorium / Orientation: awake, alert, oriented to person, oriented to place and oriented to time Cranial Nerves: CN normal except as noted Coordination / Balance: [id number] test normal Speech: speech normal Sensory Exam: extremities light-touch: normal and trunk Positive for normal exam Motor Exam: strength 5/5 throughout, muscle tone normal throughout and pronator drift Positive for pronator drift of LUE (minimal pronation of LUE) Coordination: [id number] test normal Pupil Exam: Normal Pupillary Reactivity/Response: bilateral Lab / Micro Data 07/10/24 06:03 07/10/24 06:03 Labs: Laboratory Results - last 24 hr 07/09/24 11:25: Anisocytosis 2+, Phosphorus 1.1 L*, Magnesium 1.9 07/09/24 16:55: POC Glucose 95 07/09/24 21:39: POC Glucose 130 H 07/10/24 06:03: WBC 7.6, RBC 3.23 L, Hgb 9.2 L, Hct 30.8 L, MCV 95.4, MCH 28.5, MCHC 29.9 L, RDW Std Deviation 65.9 H, RDW Coeff of Fior 19.3 H, Plt Count 270, MPV 9.5, Immature Gran % (Auto) 1.200 H, Neut % (Auto) 66.8, Lymph % (Auto) 15.3 L, [place] % (Auto) 11.6 H, Eos % (Auto) 4.3, Baso % (Auto) 0.8, Absolute Neuts (auto) 5.1, Absolute Lymphs (auto) 1.17, Nucleated RBC % 0, Differential Comment SCANNED, Anisocytosis 2+, Sodium 137, Potassium 4.4, Chloride 103, Carbon Dioxide 29.0, Anion Gap 5, BUN 31 H, Creatinine 4.16 H, Estim Creat Clear Calc 13.49, Est GFR (MDRD) Af Amer 14 L, Est GFR (MDRD) Non-Af 12 L, BUN/Creatinine Ratio 7.5 L, Glucose 190 H, Hemoglobin A1c 5.0, Calcium 8.6, Phosphorus 3.3, Magnesium 1.8, Triglycerides 275 H, Cholesterol 164, LDL Cholesterol 67, VLDL Cholesterol 55 H, HDL Cholesterol 42, TSH 5.600 H 07/10/24 06:22: POC Glucose 180 H 07/10/24 11:22: POC Glucose 215 H Imaging Radiology Impression Brain MRI 07/09/24 13:32 IMPRESSION: 1. No MRI evidence of acute or subacute ischemic infarct. 2. Old cortical-based ischemic infarct with cystic encephalomalacia and atrophy and cortical laminar necrosis in the right inferior parietal lobule (supramarginal gyrus and angular gyrus) and old cortical-based ischemic infarct with cystic encephalomalacia and atrophy in the right posterior insular lobe. These were previously acute. 3. Old cortical-based ischemic infarct with cystic encephalomalacia and atrophy in the right lingual gyrus is unchanged. 4. Old lacunar infarct in the right thalamus is unchanged. Electronically Signed: Rik Ellis MD at 15:45 EDT , Active Medications Active Medications Active Medications: Current Medications Generic Name Dose Route Start Last Admin Trade Name Freq PRN Reason Stop Dose Admin Acetaminophen 650 mg 07/09/24 15:49 07/10/24 12:50 Acetaminophen 325 Mg Tablet PO 650 mg Q6H PRN PRN Administration Pain 1-10 Or Fever >100.7 Ascorbic Acid 500 mg 07/10/24 10:00 07/10/24 09:11 Ascorbic Acid 500 Mg Tablet PO 500 mg BID TAB Administration Aspirin 81 mg 07/10/24 10:00 07/10/24 09:11 Aspirin 81 Mg Tab.Chew PO 81 mg DAILYCM TAB Administration Atorvastatin Calcium 40 mg 07/10/24 22:00 Atorvastatin Calcium 40 Mg Tablet PO QHS TAB Calcitriol 0.5 mcg 07/11/24 10:00 Calcitriol 0.25 Mcg Capsule PO MoWeFr [facility] Calcium Acetate 667 mg 07/10/24 12:00 Calcium Acetate 667 Mg Capsule PO TIDCM [facility] Carvedilol 12.5 mg 07/10/24 10:00 07/10/24 09:10 Carvedilol 12.5 Mg Tablet PO 12.5 mg BID TAB Administration Protocol Diphenhydramine HCl 12.5 mg 07/10/24 08:03 Diphenhydramine 12.5 Mg/5 Ml Udc PO Q6H PRN PRN Itching Ferrous Sulfate 325 mg 07/11/24 08:00 Ferrous Sulfate 325 Mg Tablet PO MoWeFr@0800 TAB Folic Acid 1 mg 07/10/24 10:00 07/10/24 09:11 Folic Acid 1 Mg Tablet PO 1 mg BREAKFAST TAB Administration Gabapentin 100 mg 07/10/24 08:03 Gabapentin 100 Mg Capsule PO MoWeFr PRN NEUROPATHIC PAIN Heparin Sodium (Porcine) 5,000 unit 07/09/24 15:49 07/10/24 06:23 Heparin Injection (Vial) 5,000 Unit/Ml Vial SC 5,000 unit Q8 TAB Administration Hydralazine HCl 5 mg 07/09/24 15:49 Hydralazine 20 Mg/Ml Vial IV 07/10/24 15:49 Q30M PRN maintain BP parameters with HR <60 Hydralazine HCl 50 mg 07/10/24 14:00 Hydralazine 50 Mg Tablet PO TID [facility] Protocol Sodium Chloride 250 mls @ 15 mls/hr 07/09/24 15:51 IV .[id number] PRN Additional IVPB Infusion Sodium Chloride 250 mls @ 15 mls/hr 07/09/24 15:51 IV .[id number] PRN Saline Flush Daptomycin 400 mg/ Sodium 58 mls @ 116 mls/hr 07/11/24 16:00 Chloride IV MoWe@1600 [facility] Daptomycin 600 mg/ Sodium 62 mls @ 116 mls/hr 07/13/24 16:00 Chloride IV Fr@1600 [facility] Ertapenem 1 gm/ Sodium 60 mls @ 100 mls/hr 07/11/24 18:00 Chloride IV MoWeFr@1800 [facility] Insulin Human Lispro 0 unit 07/09/24 16:00 07/10/24 11:23 Insulin Lispro 100 Unit/Ml Insuln.Pen SC 4 units ACHS TAB Administration Protocol Labetalol HCl 10 - 20 mg 07/09/24 15:49 Labetalol (Prefilled) 20 Mg/4 Ml IV 07/10/24 15:49 Q10M PRN PRN maintain BP parameters with HR >/=60 Levothyroxine Sodium 25 mcg 07/10/24 10:00 07/10/24 09:11 Levothyroxine 25 Mcg Tablet PO 25 mcg 0600 [facility] Administration Lorazepam 0.5 mg 07/11/24 10:00 Lorazepam 0.5 Mg Tablet PO MoWeFr@1000 [facility] Nitroglycerin 0.4 mg 07/10/24 08:23 Nitroglycerin (Inpatient Use) 0.4 Mg Tab.Subl SL Q5M PRN CARDIAC/CHEST PAIN Ondansetron HCl 4 mg 07/09/24 15:49 Ondansetron 4 Mg/2 Ml Vial IV Q8H PRN PRN NAUSEA/VOMITING Oxycodone HCl 2.5 mg 07/10/24 08:03 Oxycodone 5 Mg Tablet PO Q8H PRN PAIN 1-10 Pantoprazole Sodium 40 mg 07/10/24 10:00 07/10/24 09:11 Pantoprazole Sodium 40 Mg Tablet PO 40 mg BIDCM TAB Administration Paroxetine HCl 20 mg 07/10/24 10:00 07/10/24 09:11 Paroxetine 20 Mg Tablet PO 20 mg DAILY TAB Administration Senna/Docusate Sodium 2 tablet 07/09/24 22:00 07/10/24 09:11 Senna/Docusate Sodium 1 Tablet PO 2 tablet BID TAB Administration Sodium Chloride 10 - 40 ml 07/09/24 15:51 0.9% Saline Lock 10 Ml Syringe IV UD PRN SALINE FLUSH Sucralfate 1 gm 07/10/24 11:00 07/10/24 11:24 Sucralfate 1 Gm Tablet PO 1 gm TID@0700,1100,1600 TAB Administration
[2024-07-10] MEDS: Calcium Acetate 667 MG Capsule PO (13:16)
--- NOTE | 2024-07-10 14:04 | TREXTCAR_ITS ---
Diet Diet Order/Speech Therapy: 07/09/24 15:49 Diet: Cardiac: Calorie-Controlled Food consistency:: Regular Liquid Consistency:: Regular/Thin How many daily calories?: 1800 calorie Wound(s) right lateral foot/ankle: Wound Type: Neuropathic/Diabetic Foot Ulcer Dressing Change: betadine gauze right plantar foot: Wound Type: Neuropathic/Diabetic Foot Ulcer Dressing Change: betadine gauze left plantar foot: Wound Type: Neuropathic/Diabetic Foot Ulcer Dressing Change: betadine gauze Problem/Diagnosis (1) ESRD (end stage renal disease) on dialysis: Status: Acute Code(s): N18.6 - End stage renal disease; Z99.2 - Dependence on renal dialysis Plan This is 59-year-old female came to ED in a unresponsive state after suspected seizure episode in [facility] dialysis center while getting IV daptomycin for MRSA infection in feet. She denies prior history of epilepsy 1. Suspected seizure episode complicated with unresponsiveness with abnormal CT finding of possible acute on chronic punctate infarct in right thalamus: Patient is being admitted in PCU. MRI of the brain is ordered as it is unclear whether it is acute or chronic punctate infarct. It is also unclear whether it was seizure episode or abnormal movement but she was unresponsive. Tele- neuroconsult ordered. Stroke alert was not called by ED physician. 07/10: MRI brain was negative for acute stroke. 2. Subacute ischemic CVA in December 2023: At that time patient had left-sided weakness with slurred speech. MRI brain showed moderate size of subacute nonhemorrhagic infarct in right hemisphere involving posterior on the right frontal, parietal lobe and extending to posterior insula. CTA head and neck showed calcified plaque at the origin of right ICA causing 50 to 69% stenosis less than 50% narrowing at origin of left ICA. HONG was negative for stroke. 2D echo showed no evidence of vegetation. 3. Chronic diabetic infection of right foot: Patient was discharged on 07/04 on daptomycin after she had debridement to the muscle level. No evidence of osteomyelitis at that time. Plan 6 weeks of daptomycin and ertapenem. Consult ID and podiatry 4. ESRD on hemodialysis: On hemodialysis. 5. Diabetes mellitus type 2: Glucose is 121. Fair control. Accu-Chek before meals and at bedtime with Humalog sliding scale coverage and hypoglycemia protocol. 6. Hypothyroidism: On levothyroxine. 7. GERD: PPI 8. DVT prophylaxis: High risk: On heparin 5000 units subcutaneous 3 times daily. Living will/advanced directive/end of life care: Patient does not have living will or advanced directive. After discussion of benefits/risks procedures involved with full code, DNR CC arrest and DNR CC, the patient opted for full code. Patient does want artificial life support including intubation, tube feed, ventilator and/chest compression, central venous catheter, vasopressor and DC shock if needed Total time spent in [id number] encounter in discussion of advanced directive 17 minutes. Laboratory Results 07/09/24 11:25: WBC 8.7, RBC 3.60 L, Hgb 10.1 L, Hct 33.8 L, MCV 93.9, MCH 28.1, MCHC 29.9 L, RDW Std Deviation 65.4 H, RDW Coeff of Fior 19.1 H, Plt Count 289, MPV 9.5, Immature Gran % (Auto) 1.500 H, Neut % (Auto) 70.3 H, Lymph % (Auto) 13.8 L, [place] % (Auto) 9.5, Eos % (Auto) 4.0, Baso % (Auto) 0.9, Absolute Neuts (auto) 6.1, Absolute Lymphs (auto) 1.20, Nucleated RBC % 0, Anisocytosis 2+, Sodium 140, Potassium 3.4 L, Chloride 100, Carbon Dioxide 30.0, Anion Gap 10, BUN 17, Creatinine 2.97 H, Estim Creat Clear Calc 19.28, Est GFR (MDRD) Af Amer 21 L, Est GFR (MDRD) Non-Af 17 L, BUN/Creatinine Ratio 5.7 L, Glucose 121 H, Calcium 9.4 Clinical Impression(s) from Imaging Studies Brain CT 07/09/24 11:30 IMPRESSION: Chronic involutional changes of the brain. Possible acute or chronic punctate infarct in the right thalamus. MRI may be useful. No acute intracranial hemorrhage. Allergies/Procedures Done in Hospital Allergies oxycodone (From OxyContin) Allergy (Verified 06/27/24 08:27) sob Penicillins Allergy (Verified 06/27/24 08:27) swelling in throat vancomycin Allergy (Verified 06/27/24 08:27) Itching metronidazole Adverse Reaction (Verified 06/27/24 08:27) Nausea Type of Care/Length of Stay Estimated LOS: Convalescent Care Less Than 30 days Type of Care Needed: Intermediate Rehab Potential: Good Prognosis: Good Additional Orders/Day of Discharge Day of Discharge: 07/10/24 Discharge Plan Admission Admit Date/Time: 07/09/24 12:48 Primary Reason for Your Visit: New onset seizure Attending Provider: Blas Vu Primary Care Provider: Raúl Eric Consulting Providers: Jocelin Monk; Carrol Betancur; Alexandr Rogers; Nano Watt; Analilia Gardner; Kike Tello; Angel Joel; Gustavo Julian; David Solorzano; Ary Hammond; Ella Mendosa; Olaf Caceres; Vanessa Arora; Vincenzo Glass; Shayne Schwarz; Landen Arthur; Nicole Ramirez; April Hardy; Stanley Smallwood; Wm Rocha; Sherman King; Maxine Mancilla; Daniela Carranza; Shonda Mcqueen; Justin Adame; Princess Thompson; AMANDA VERA; Jerod Vogel; Nette Valdes Discharge Orders/Prescriptions Prescriptions: New daptomycin 500 mg recon soln 400 mg IV .MWF 35 Days Rx Instructions: stop date 08/08/24. Dx: R foot osteo. Daptomycin dosed with HD - 400mg on Mon, 400mg on Tue, 600mg on Tuesday. Weekly bmp, cbc, LFT, CK, and esr. Fax to [phone]. ertapenem 1 gram recon soln 1 g IV .MWF 35 Days Qty: 15 0RF Rx Instructions: stop date 08/08/24. Dx: R foot osteo. Ertapenem dosed with HD - 1gm on Tue-Tue-Tue. Weekly bmp, cbc, LFT, CK, and esr. Fax to [phone]. levetiracetam 500 mg Tablet 500 mg PO BID 30 Days Qty: 60 2RF Continued paroxetine HCl 20 mg tablet 20 mg PO DAILY Patient Comments: TAKE 1 TABLET BY MOUTH EVERY DAY IN THE EVENING sennosides-docusate sodium [Stool Softener-Stimulant Laxat] 8.6-50 mg Tablet 2 tab PO BID PRN PRN (Reason: Constipation) Qty: 0 0RF ascorbic acid (vitamin C) [Vitamin C] 500 mg Tablet 500 mg PO BID pantoprazole 40 mg tablet,delayed release (DR/EC) 40 mg PO BIDCM ferrous sulfate 325 mg (65 mg iron) tablet 325 mg PO .three times a week Patient Comments: takes three times a week, on Tuesday, and Tuesday gabapentin 100 mg capsule 100 mg PO .COMPLEX PRN (Reason: pain) Rx Instructions: 100 mg orally 3 times a week Tuesday, Tuesday and Tuesday atorvastatin 40 mg tablet 40 mg PO DAILY carvedilol 25 mg tablet 25 mg PO BID melatonin 3 mg Tablet 3 mg PO QHS PRN PRN (Reason: Insomnia) Qty: 0 0RF hydralazine 50 mg Tablet 50 mg PO TID Qty: 0 0RF menthol-zinc oxide [Calmoseptine] 0.44-20.6 % Ointment 1 applic topical BID Qty: 0 0RF Protocol: *Topical Application Instructions APPLICATION INSTRUCTIONS: BUTTOCKS sucralfate 1 gram Tablet 1 g PO TID@0700,1100,1600 Qty: 0 0RF acetaminophen 325 mg Tablet 650 mg PO Q6H PRN (Reason: fever or pain) insulin lispro [Humalog KwikPen Insulin] 100 unit/mL Insulin Pen See Protocol subcut TIDAC Qty: 0 0RF Protocol: 4. Sliding Scale Insulin High-Med Dosing Condition: 150-199 mg/dl = 2 units Condition: 200-259 mg/dl = 4 units Condition: 260-324 mg/dl = 6 units Condition: 325-374 mg/dl = 8 units Condition: 375-409 mg/dl = 10 units Condition: 410-449 mg/dl = 11 units Condition: Greater than 449 call physician Protocol Text: Suggested for: - Patients on Total Daily Insulin Dose of 56-80 units - Patient who are known to be insulin resistant or septic HIGH MEDIUM DOSING ALGORITHM calcium acetate(phosphat bind) 667 mg capsule 676 mg PO TID Patient Comments: TAKE 1 CAPSULE BY MOUTH THREE TIMES A DAY WITH FOOD folic acid 800 mcg tablet 0.8 mg PO DAILY Patient Comments: TAKE 1 TABLET BY MOUTH EVERY DAY levothyroxine 25 mcg tablet 25 mcg PO DAILY Patient Comments: TAKE 1 TABLET BY MOUTH EVERY DAY BEFORE BREAKFAST amlodipine 5 mg tablet 5 mg PO DAILY calcitriol 0.5 mcg capsule 0.5 mcg PO .COMPLEX Rx Instructions: 0.5 mcg orally three times a week; nitroglycerin [Nitrostat] 0.4 mg tablet, sublingual 0.4 mg sublingual Q5M Rx Instructions: do not exceed 3 doses per episode aspirin 81 mg capsule 81 mg PO DAILY Qty: 30 1RF lorazepam 0.5 mg Tablet 0.5 mg PO MoWeFr@1000 Qty: 1 0RF oxycodone 5 mg tablet 2.5 mg PO Q8H PRN (Reason: pain) 3 Days Qty: 10 0RF Changed diphenhydramine HCl [Banophen] 25 mg Capsule 12.5 mg PO Q6H PRN PRN (Reason: Itching) Qty: 0 0RF Discontinued bupropion HCl 150 mg tablet extended release 24 hr 150 mg PO DAILY Patient Comments: TAKE 1 TABLET BY MOUTH EVERY DAY daptomycin 500 mg Recon Soln 400 mg IV Q48 40 Days Qty: 16 0RF Rx Instructions: stop date 08/08/24. Dx: R foot osteo. Daptomycin dosed with HD - 400mg on Tue, 400mg on Tue, 600mg on Tuesday. Weekly bmp, cbc, LFT, CK, and esr. Fax to [phone]. ertapenem 1 gram recon soln 1 g IV DAILY Qty: 16 0RF Rx Instructions: stop date 08/08/24. Dx: R foot osteo. Ertapenem dosed with HD - 1gm on Tue-Tue-Tue. Weekly bmp, cbc, LFT, CK, and esr. Fax to [phone]. Referrals / Follow Up: Gustavo Julian DPM [Med Staff - Active Staff] - (follow up 1 week at wound care center) Raúl Eric MD [Primary Care Provider] - Murray Garcia MD [Non-Staff] -
--- NOTE | 2024-07-10 14:13 | PCM.DC.SUM ---
Providers Date of Admission: 07/09/24 Date of Discharge: 07/10/24 Primary Care Physician: Dr. Raúl Eric MD Consultations 07/09/24 12:50 neuro [Consult: Tele-Neurology] Routine Consulting Provider: [facility] Reason for Consult: SEIZURE, ABNORMAL CT gead EMERGENT Consult: No Notified: Yes Date Notified: 07/09/24 Time Notified: 16:03 Method of Notification: Answering Service Nursing Unit Staff Notify [facility] of Tele-Neurology Consult: Yes 07/09/24 15:49 Consult: Infectious Disease Routine Consulting Provider: Kike Tello Reason for Consult: Right MRSA infection/diabetic foot EMERGENT Consult: No Notified: Yes Date Notified: 07/09/24 Time Notified: 14:05 Method of Notification: Text Consult: Nephrology Routine Consulting Provider: Angel Joel Reason for Consult: ESRD on M,W,F EMERGENT Consult: No Notified: Yes Date Notified: 07/09/24 Time Notified: 14:06 Method of Notification: Text Consult: Podiatry Routine Consulting Provider: Gustavo Julian Reason for Consult: right feet diabetic infection EMERGENT Consult: No Notified: Yes Date Notified: 07/09/24 Time Notified: 14:05 Method of Notification: Text 07/09/24 17:05 Consult: Onc/Wound/sole edge inker machine Routine Comment: Reason for Consult:: foot wounds Reason For Visit: TIA Diagnosis Discharge Diagnosis (1) ESRD (end stage renal disease) on dialysis: Status: Acute Code(s): N18.6 - End stage renal disease; Z99.2 - Dependence on renal dialysis Plan This is 59-year-old female came to ED in a unresponsive state after suspected seizure episode in [facility] dialysis center while getting IV daptomycin for MRSA infection in feet. She denies prior history of epilepsy 1. Acute epileptic seizure episode complicated with unresponsiveness: Patient had CT done in ED which reported possible acute or chronic punctate infarct in right thalamus: Patient is being admitted in PCU. MRI of the brain is ordered as it is unclear whether it is acute or chronic punctate infarct. It is also unclear whether it was seizure episode or abnormal movement but she was unresponsive. Tele-neuroconsult ordered. Stroke alert was not called by ED physician. 07/10: MRI brain was negative for acute or subacute stroke although it showed old cortical-based ischemic infarct with cystic encephalomalaci. Patient was seen by neurologist and impression was epileptic seizure most likely arising from area of prior stroke. Patient needs ertapenem therefore ertapenem continued although fluid mildly decreases seizure threshold. Bupropion discontinued. Patient started on 500 mg IV Keppra 1 dose now and then 500 mg twice daily to continue from the evening today. Patient discharged to SNF. EEG was done and as per neurology looked fine but not officially reported. The neurologist okayed the discharge 2. Subacute ischemic CVA in December 2023: At that time patient had left-sided weakness with slurred speech. MRI brain showed moderate size of subacute nonhemorrhagic infarct in right hemisphere involving posterior on the right frontal, parietal lobe and extending to posterior insula. CTA head and neck showed calcified plaque at the origin of right ICA causing 50 to 69% stenosis less than 50% narrowing at origin of left ICA. HONG was negative for stroke. 2D echo showed no evidence of vegetation. 3. Chronic diabetic infection of right foot: Patient was discharged on 07/04 on daptomycin after she had debridement to the muscle level. No evidence of osteomyelitis at that time. Plan 6 weeks of daptomycin and ertapenem. Consult ID and podiatry 4. ESRD on hemodialysis: On hemodialysis. 07/10: Patient was seen and evaluated being followed by Dr. Flynn. 5. Diabetes mellitus type 2: Glucose is 121. Fair control. Accu-Chek before meals and at bedtime with Humalog sliding scale coverage and hypoglycemia protocol. 6. Hypothyroidism: On levothyroxine. 7. GERD: PPI 8. DVT prophylaxis: High risk: On heparin 5000 units subcutaneous 3 times daily. Living will/advanced directive/end of life care: Patient does not have living will or advanced directive. After discussion of benefits/risks procedures involved with full code, DNR CC arrest and DNR CC, the patient opted for full code. Patient does want artificial life support including intubation, tube feed, ventilator and/chest compression, central venous catheter, vasopressor and DC shock if needed Total time spent in [id number] encounter in discussion of advanced directive 17 minutes. Laboratory Results 07/09/24 16:55: POC Glucose 95 07/09/24 21:39: POC Glucose 130 H 07/10/24 06:03: WBC 7.6, RBC 3.23 L, Hgb 9.2 L, Hct 30.8 L, MCV 95.4, MCH 28.5, MCHC 29.9 L, RDW Std Deviation 65.9 H, RDW Coeff of Fior 19.3 H, Plt Count 270, MPV 9.5, Immature Gran % (Auto) 1.200 H, Neut % (Auto) 66.8, Lymph % (Auto) 15.3 L, [place] % (Auto) 11.6 H, Eos % (Auto) 4.3, Baso % (Auto) 0.8, Absolute Neuts (auto) 5.1, Absolute Lymphs (auto) 1.17, Nucleated RBC % 0, Differential Comment SCANNED, Anisocytosis 2+, Sodium 137, Potassium 4.4, Chloride 103, Carbon Dioxide 29.0, Anion Gap 5, BUN 31 H, Creatinine 4.16 H, Estim Creat Clear Calc 13.49, Est GFR (MDRD) Af Amer 14 L, Est GFR (MDRD) Non-Af 12 L, BUN/Creatinine Ratio 7.5 L, Glucose 190 H, Hemoglobin A1c 5.0, Calcium 8.6, Phosphorus 3.3, Magnesium 1.8, Triglycerides 275 H, Cholesterol 164, LDL Cholesterol 67, VLDL Cholesterol 55 H, HDL Cholesterol 42, TSH 5.600 H 07/10/24 06:22: POC Glucose 180 H 07/10/24 11:22: POC Glucose 215 H Clinical Impression(s) from Imaging Studies Brain CT 07/09/24 11:30 IMPRESSION: Chronic involutional changes of the brain. Possible acute or chronic punctate infarct in the right thalamus. MRI may be useful. No acute intracranial hemorrhage. Medications at Discharge Home Medications paroxetine HCl 20 mg tablet 20 mg PO DAILY DEPRESSION 07/07/21 sennosides 8.6 mg-docusate sodium 50 mg tablet (Stool Softener-Stimulant Laxative) 2 tab PO BID PRN PRN Constipation #0 tabs 04/24/22 ascorbic acid (vitamin C) 500 mg tablet (Vitamin C) 500 mg PO BID supplement 05/05/22 ferrous sulfate 325 mg (65 mg iron) tablet 325 mg PO .three times a week anemia 07/19/22 pantoprazole 40 mg tablet,delayed release 40 mg PO BIDCM GERD 07/19/22 gabapentin 100 mg capsule 100 mg PO .COMPLEX PRN pain 11/26/23 amlodipine 5 mg tablet 5 mg PO DAILY bp 12/16/23 calcitriol 0.5 mcg capsule 0.5 mcg PO .COMPLEX on dialysis 12/16/23 calcium acetate(phosphat bind) 667 mg capsule 676 mg PO TID is on dialysis 12/16/23 folic acid 800 mcg tablet 0.8 mg PO DAILY supplement 12/16/23 levothyroxine 25 mcg tablet 25 mcg PO DAILY thyroid 12/16/23 nitroglycerin 0.4 mg sublingual tablet (Nitrostat) 0.4 mg sublingual Q5M chest pain 12/16/23 aspirin 81 mg capsule 81 mg PO DAILY blood thinner #30 caps 12/26/23 atorvastatin 40 mg tablet 40 mg PO DAILY cholesterol 03/18/24 carvedilol 25 mg tablet 25 mg PO BID blood pressure 03/18/24 hydralazine 50 mg tablet 50 mg PO TID bp #0 tabs 05/21/24 melatonin 3 mg tablet 3 mg PO QHS PRN PRN Insomnia #0 tabs 05/21/24 menthol 0.44 %-zinc oxide 20.6 % topical ointment (Calmoseptine) 1 applic topical BID skin care #0 grams 05/21/24 sucralfate 1 gram tablet 1 g PO TID@0700,1100,1600 indigestion #0 tabs 05/21/24 lorazepam 0.5 mg tablet 0.5 mg PO MoWeFr@1000 #1 TAB 07/02/24 oxycodone 5 mg tablet 2.5 mg (1/2 x 5 mg) PO Q8H PRN pain 3 days #10 tabs 07/02/24 acetaminophen 325 mg tablet 650 mg PO Q6H PRN fever or pain 07/09/24 daptomycin 500 mg intravenous solution 400 mg IV .MWF 35 days 07/10/24 diphenhydramine HCl 25 mg capsule (Banophen) 12.5 mg (1/2 x 25 mg) PO Q6H PRN PRN Itching #0 caps 07/10/24 ertapenem 1 gram solution for injection 1 g IV .MWF 35 days #15 ea 07/10/24 insulin lispro 100 unit/mL subcutaneous pen (Humalog KwikPen (U-100) Insulin) See Protocol subcut TIDAC blood sugar #0 mL 07/10/24 levetiracetam 500 mg tablet 500 mg PO BID 30 days #60 tabs 07/10/24 Physical Exam Narrative Seen and examined. No further seizure episode after admission from the ER. Patient is on baseline. Physical exam General: Alert, Oriented x3, Cooperative HEENT: Atraumatic, PERRLA, EOMI, Normocephalic Oral: Oral mucosa dry. No Gingival or Mucosal Lesions/ Ulcerations Neck: Supple, No JVD, Negative Carotid Bruits Chest wall/Lungs: Left upper chest dialysis catheter. Air entry diminished in bilateral lung bases. No crepitation/rhonchi Cardiovascular: Regular rate, Regular Rhythm, Normal S1, Normal S2, No M/G/R Abdomen: Bowel Sounds Present, Soft, Non Tender, Non-Distended : No dysuria. No renal angle tenderness. No suprapubic tenderness. Extremities: No edema, Capillary Refill Less than 3 Seconds Skin: Bilateral feet and ankle is wrapped. Musculoskeletal: Bilateral ankle charchot's joint. No Tenderness to Palpation of Joints or Extremities Neurological: Cranial nerves II-XII grossly intact, DTR 2+/4. No acute focal neurological deficit. Psych/Mental Status: Normal Affect, Appropriate. Weight / BMI Weight Weight: 150 lb 2.157 oz Body Mass Index (BMI) 26.6 ABG / Lab / Microbiology Data 07/10/24 06:03 07/10/24 06:03 Laboratory: Laboratory Results - last 24 hr 07/09/24 16:55: POC Glucose 95 07/09/24 21:39: POC Glucose 130 H 07/10/24 06:03: WBC 7.6, RBC 3.23 L, Hgb 9.2 L, Hct 30.8 L, MCV 95.4, MCH 28.5, MCHC 29.9 L, RDW Std Deviation 65.9 H, RDW Coeff of Fior 19.3 H, Plt Count 270, MPV 9.5, Immature Gran % (Auto) 1.200 H, Neut % (Auto) 66.8, Lymph % (Auto) 15.3 L, [place] % (Auto) 11.6 H, Eos % (Auto) 4.3, Baso % (Auto) 0.8, Absolute Neuts (auto) 5.1, Absolute Lymphs (auto) 1.17, Nucleated RBC % 0, Differential Comment SCANNED, Anisocytosis 2+, Sodium 137, Potassium 4.4, Chloride 103, Carbon Dioxide 29.0, Anion Gap 5, BUN 31 H, Creatinine 4.16 H, Estim Creat Clear Calc 13.49, Est GFR (MDRD) Af Amer 14 L, Est GFR (MDRD) Non-Af 12 L, BUN/Creatinine Ratio 7.5 L, Glucose 190 H, Hemoglobin A1c 5.0, Calcium 8.6, Phosphorus 3.3, Magnesium 1.8, Triglycerides 275 H, Cholesterol 164, LDL Cholesterol 67, VLDL Cholesterol 55 H, HDL Cholesterol 42, TSH 5.600 H 07/10/24 06:22: POC Glucose 180 H 07/10/24 11:22: POC Glucose 215 H Radiography Diagnostic Testing: Radiology Impression Brain MRI 07/09/24 13:32 IMPRESSION: 1. No MRI evidence of acute or subacute ischemic infarct. 2. Old cortical-based ischemic infarct with cystic encephalomalacia and atrophy and cortical laminar necrosis in the right inferior parietal lobule (supramarginal gyrus and angular gyrus) and old cortical-based ischemic infarct with cystic encephalomalacia and atrophy in the right posterior insular lobe. These were previously acute. 3. Old cortical-based ischemic infarct with cystic encephalomalacia and atrophy in the right lingual gyrus is unchanged. 4. Old lacunar infarct in the right thalamus is unchanged. Electronically Signed: Rik Ellis MD at 15:45 EDT , Meaningful Use Info Meaningful Use Meaningful Use Diagnoses (Choose all that apply): None applicable Ischemic Stroke Statin Dosing Therapy Reference: STATIN DOSE THERAPY REFERENCE: * Patients > 75 years receive moderate or high dose statin therapy. * Patients 75 years or YOUNGER should receive HIGH intensity statin dose unless contraindicated. You will be required to document reason for non-treatment if statin daily dose does not meet guidelines. HIGH DOSE STATIN THERAPY DAILY Atorvastatin > than or = to 40 mg Rosuvastatin > than or = to 20 mg Amlodipine + Atorvastatin > than or = to 2.5/40 mg Ezetimibe + Simvastatin 10/80 mg Simvastatin 80mg Discharge Plan Admission Admit Date/Time: 07/09/24 12:48 Primary Reason for Your Visit: New onset seizure Attending Provider: Blas Vu Primary Care Provider: Raúl Eric Consulting Providers: Jocelin Monk; Carrol Betancur; Alexandr Rogers; Nano Watt; Analilia Gardner; Kike Tello; Angel Joel; Gustavo Julian; David Solorzano; Ary Hammond; Ella Mendosa; Olaf Caceres; Vanessa Arora; Vincenzo Glass; Shayne Schwarz; Landen Arthur; Nicole Ramirez; April Hardy; Stanley Smallwood; Wm Rocha; Sherman King; Maxine Mancilla; Daniela Carranza; Shonda Mcqueen; Justin Adame; Princess Thompson; AMANDA VERA; Jerod Vogel; Nette Valdes Discharge Orders/Prescriptions Prescriptions: New daptomycin 500 mg recon soln 400 mg IV .MWF 35 Days Rx Instructions: stop date 08/08/24. Dx: R foot osteo. Daptomycin dosed with HD - 400mg on Tue, 400mg on Tue, 600mg on Tuesday. Weekly bmp, cbc, LFT, CK, and esr. Fax to [phone]. ertapenem 1 gram recon soln 1 g IV .MWF 35 Days Qty: 15 0RF Rx Instructions: stop date 08/08/24. Dx: R foot osteo. Ertapenem dosed with HD - 1gm on Tue-Tue-Tue. Weekly bmp, cbc, LFT, CK, and esr. Fax to [phone]. levetiracetam 500 mg Tablet 500 mg PO BID 30 Days Qty: 60 2RF Continued paroxetine HCl 20 mg tablet 20 mg PO DAILY Patient Comments: TAKE 1 TABLET BY MOUTH EVERY DAY IN THE EVENING sennosides-docusate sodium [Stool Softener-Stimulant Laxat] 8.6-50 mg Tablet 2 tab PO BID PRN PRN (Reason: Constipation) Qty: 0 0RF ascorbic acid (vitamin C) [Vitamin C] 500 mg Tablet 500 mg PO BID pantoprazole 40 mg tablet,delayed release (DR/EC) 40 mg PO BIDCM ferrous sulfate 325 mg (65 mg iron) tablet 325 mg PO .three times a week Patient Comments: takes three times a week, on Tuesday, and Tuesday gabapentin 100 mg capsule 100 mg PO .COMPLEX PRN (Reason: pain) Rx Instructions: 100 mg orally 3 times a week Tuesday, Tuesday and Tuesday atorvastatin 40 mg tablet 40 mg PO DAILY carvedilol 25 mg tablet 25 mg PO BID melatonin 3 mg Tablet 3 mg PO QHS PRN PRN (Reason: Insomnia) Qty: 0 0RF hydralazine 50 mg Tablet 50 mg PO TID Qty: 0 0RF menthol-zinc oxide [Calmoseptine] 0.44-20.6 % Ointment 1 applic topical BID Qty: 0 0RF Protocol: *Topical Application Instructions APPLICATION INSTRUCTIONS: BUTTOCKS sucralfate 1 gram Tablet 1 g PO TID@0700,1100,1600 Qty: 0 0RF acetaminophen 325 mg Tablet 650 mg PO Q6H PRN (Reason: fever or pain) insulin lispro [Humalog KwikPen Insulin] 100 unit/mL Insulin Pen See Protocol subcut TIDAC Qty: 0 0RF Protocol: 4. Sliding Scale Insulin High-Med Dosing Condition: 150-199 mg/dl = 2 units Condition: 200-259 mg/dl = 4 units Condition: 260-324 mg/dl = 6 units Condition: 325-374 mg/dl = 8 units Condition: 375-409 mg/dl = 10 units Condition: 410-449 mg/dl = 11 units Condition: Greater than 449 call physician Protocol Text: Suggested for: - Patients on Total Daily Insulin Dose of 56-80 units - Patient who are known to be insulin resistant or septic HIGH MEDIUM DOSING ALGORITHM calcium acetate(phosphat bind) 667 mg capsule 676 mg PO TID Patient Comments: TAKE 1 CAPSULE BY MOUTH THREE TIMES A DAY WITH FOOD folic acid 800 mcg tablet 0.8 mg PO DAILY Patient Comments: TAKE 1 TABLET BY MOUTH EVERY DAY levothyroxine 25 mcg tablet 25 mcg PO DAILY Patient Comments: TAKE 1 TABLET BY MOUTH EVERY DAY BEFORE BREAKFAST amlodipine 5 mg tablet 5 mg PO DAILY calcitriol 0.5 mcg capsule 0.5 mcg PO .COMPLEX Rx Instructions: 0.5 mcg orally three times a week; nitroglycerin [Nitrostat] 0.4 mg tablet, sublingual 0.4 mg sublingual Q5M Rx Instructions: do not exceed 3 doses per episode aspirin 81 mg capsule 81 mg PO DAILY Qty: 30 1RF lorazepam 0.5 mg Tablet 0.5 mg PO MoWeFr@1000 Qty: 1 0RF oxycodone 5 mg tablet 2.5 mg PO Q8H PRN (Reason: pain) 3 Days Qty: 10 0RF Changed diphenhydramine HCl [Banophen] 25 mg Capsule 12.5 mg PO Q6H PRN PRN (Reason: Itching) Qty: 0 0RF Discontinued bupropion HCl 150 mg tablet extended release 24 hr 150 mg PO DAILY Patient Comments: TAKE 1 TABLET BY MOUTH EVERY DAY daptomycin 500 mg Recon Soln 400 mg IV Q48 40 Days Qty: 16 0RF Rx Instructions: stop date 08/08/24. Dx: R foot osteo. Daptomycin dosed with HD - 400mg on Tue, 400mg on Tue, 600mg on Tuesday. Weekly bmp, cbc, LFT, CK, and esr. Fax to [phone]. ertapenem 1 gram recon soln 1 g IV DAILY Qty: 16 0RF Rx Instructions: stop date 08/08/24. Dx: R foot osteo. Ertapenem dosed with HD - 1gm on Tue-Tue-Tue. Weekly bmp, cbc, LFT, CK, and esr. Fax to [phone]. Referrals / Follow Up: Gustavo Julian DPM [Med Staff - Active Staff] - (follow up 1 week at wound care center) Raúl Eric MD [Primary Care Provider] - Murray Garcia MD [Non-Staff] - Disposition Disposition (needs filled in before D/C Order can be placed): Residential Facility Charges/Coding Addendum Addendum: Patient was admitted as inpatient but was discharged because of sooner recovery than expected at time of admission because acute stroke was ruled out and seizure was confirmed and the patient returned to baseline sooner than expected. Visit Charges Inpatient E&M: 21316 Disch Hosp >30min
--- NOTE | 2024-07-10 14:27 | CASEMGMT ---
Discharge Planning Discharge orders, signed med list, and transport time sent to [facility] via [facility]. Physicians will transport patient by wheelchair at 4:30p. Nursing and SW updated. Rekha Moore DC Planning Asst.
--- NOTE | 2024-07-10 14:36 | CASEMGMT ---
SW met with patient and she was aware she is returning to [facility] today. SW let patient know she will get picked up at 430. Plan: d/c back to [facility] under intermediate level of care. Physicians will transport patient via wheelchair van. Kamilla Tinsley JEWEL INSPECTOR FLEX
[2024-07-10 14:51] VITALS: BP 171/76; PULSE 82; RESP 18; TEMP 37.7; O2SAT 98
[2024-07-10] MEDS: levETIRAcetam IV 500 MG in 0.9% Normal Saline (100mL Bag) 100 ML 420 MG IV (14:52)
[2024-07-10 14:55] VITALS: PULSE 82
[2024-07-10] MEDS: hydrALAZINE 50 MG Tablet PO (14:55)
[2024-07-10] MEDS: oxyCODONE 5 MG Tablet 2.5 MG PO (14:58)
--- NOTE | 2024-07-10 15:43 | NURSING ---
Report called to [facility] to nurse Carolina
--- NOTE | 2024-07-10 16:02 | CHAPLAIN ---
Type of Pastoral Visit ___ Initial Visit ___ Follow-up Visit ___ On-call Visit ___ General Patient Visit ___ Spiritual Assessment ___ Family Conference ___ Bereavement ___ Rapid Response ___ Code Blue ___ Other (describe below) Pastoral Care Referral From ___ Patient ___ Family ___ Nurse ___ Physician ___ Child Care Counselor ___ Field Marketing Team Leader ___ Other (describe below) Sacrament/Intervention ___ Active listening ___ Anointing ___ Shinto ___ Bereavement ___ Communion ___ Stacey exploration ___ ___ Life review ___ Prayer ___ Reconciliation ___ Sacrament of Sick ___ Supportive presence ___ Wedding ___ Other (describe below) Pastoral Comments staff were working with the patient at first attempt; pt was sleeping on second and third attempts at visit
== END 2024-07-10 17:39 | disposition skilled nursing facility (03) | DRG 40 ==
LOC: ED 12:30 → PCU 13:20
PROVIDERS: Admitting Provider Internal Medicine; Emergency Provider Emergency Medicine; PCP Family Medicine; Visit Provider Internal Medicine
DX: I69.398 Other sequelae of cerebral infarction (principal); N18.6 End stage renal disease; I12.0 Hypertensive chronic kidney disease with stage 5 chronic kidney disease or end stage renal disease; L97.313 Non-pressure chronic ulcer of right ankle with necrosis of muscle; L97.422 Non-pressure chronic ulcer of left heel and midfoot with fat layer exposed; G40.409 Other generalized epilepsy and epileptic syndromes, not intractable, without status epilepticus; E11.22 Type 2 diabetes mellitus with diabetic chronic kidney disease; B95.62 Methicillin resistant Staphylococcus aureus infection as the cause of diseases classified elsewhere; I69.334 Monoplegia of upper limb following cerebral infarction affecting left non-dominant side; E03.9 Hypothyroidism, unspecified; L97.519 Non-pressure chronic ulcer of other part of right foot with unspecified severity; E11.42 Type 2 diabetes mellitus with diabetic polyneuropathy; E11.621 Type 2 diabetes mellitus with foot ulcer; E78.5 Hyperlipidemia, unspecified; Z79.4 Long term (current) use of insulin; K21.9 Gastro-esophageal reflux disease without esophagitis; E11.628 Type 2 diabetes mellitus with other skin complications; Z99.2 Dependence on renal dialysis; I25.10 Atherosclerotic heart disease of native coronary artery without angina pectoris; I25.5 Ischemic cardiomyopathy; G89.29 Other chronic pain; Z23 Encounter for immunization; Z79.82 Long term (current) use of aspirin; Z79.2 Long term (current) use of antibiotics; Z79.899 Other long term (current) drug therapy; Z95.5 Presence of coronary angioplasty implant and graft
CPT/HCPCS: 36415; 70450; 70551; 80048; 80061; 82962; 83036; 83735; 84100; 84443; 85025; 90656; 92610; 93005; 95819; 99285; J7030; J7050

== ENCOUNTER 2024-07-16 07:02 | Emergency (ER) | payer MEDICARE, MEDICAID, SELFPAY ==
[2018-09-21 13:23] VITALS: BMI 29.3
[2024-07-16 07:03] VITALS: BP 153/90; PULSE 72; RESP 20; TEMP 36.4; O2SAT 97; BMI 29.4
--- NOTE | 2024-07-16 07:09 | CT_ITS ---
EXAM: CT HEAD WITHOUT INTRAVENOUS CONTRAST CLINICAL INDICATION: TRAUMA TRAUMA. Status post fall from wheelchair hitting the right side of the head. TECHNIQUE: Multiple axial images were obtained of the head without intravenous contrast. This CT exam was performed using one or more of the following dose reduction techniques: automated exposure control, adjustment of the mA and/or kV according to patient size, and/or use of iterative reconstruction technique. RADIATION DOSE: CTDIvol = 44.99 mGy, DLP = 762.36 mGy-cm COMPARISON: CT scan brain 07/09/2024. FINDINGS: BRAIN AND EXTRA-AXIAL SPACES: There are regions of encephalomalacia in the right frontal, parietal, and occipital lobes, consistent with old infarctions. There are microvascular changes in supratentorial white matter. There is mild cerebral atrophy. No intra- or extra-axial hemorrhage. No intracranial mass or mass effect. Posterior fossa structures are unremarkable. No hydrocephalus. Basal cisterns are patent. BONES/JOINTS: Unremarkable. No discrete lytic or blastic abnormalities. VASCULATURE: There is atherosclerotic calcification of the cavernous carotid arteries. SINUSES: Unremarkable as visualized. Clear. MASTOID AIR CELLS: Unremarkable. Clear. ORBITS: There is evidence of previous cataract surgery. CT/Brain/Head without Contrast IMPRESSION: 1. Chronic involutional changes of the brain. 2. 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 3. No demonstrated acute intracranial process. Electronically Signed: Wai Cameron MD at 7:51 EDT Reading Location ID and State: [facility] / [place] , Service support ,
--- NOTE | 2024-07-16 07:09 | ED.VIS.FALL ---
HPI HPI - Fall History of Present Illness Chief Complaint: Fall Narrative Narrative: Chief complaint and HPI: Fall. 59-year-old female with history of DM, CKD on dialysis Tuesday, Tuesday, Tuesday presents for evaluation after a fall. Patient states she is supposed to receive dialysis today. She states that she was sitting outside of dialysis in her wheelchair when she fell asleep and fell out of her wheelchair. She endorses hitting the left side of her head. Denies LOC. Endorses chronic bilateral lower extremity pain. Denies any new extremity pain. Denies any fever, chills, shortness of breath, chest pain, abdominal pain, nausea, vomiting, dysuria. Review of systems: See HPI Medications: As listed on the chart Allergies: As listed on the chart PFSH: Per chart Vital signs: As listed on the chart. Reviewed. Physical exam: Gen: A&O x3, NAD Head: Normocephalic, small right frontal hematoma Eyes: No sclera icterus, conjunctiva clear, PERRL, EOMI ENT: TMs clear BL, moist mucous membranes, no swelling/lacerations/blood in the mouth or the nares, No nasal septal hematoma, no facial tenderness Neck: Trachea midline, No JVD, Nontender CV: RRR, no murmurs, no chest wall TTP Resp: Lungs CTA BL, no w/r/c GI: Abd soft, non-distended, non-tender, no r/r/g Musc: Moves all extremities, no deformity, no spinal TTP, no lukas step-offs Skin: Warm, dry, intact Neuro: Alert, oriented, grossly intact, sensation intact, GCS 15 Psych: Cooperative, appropriate mood and affect [facility] Medical History Non-pressure chronic ulcer of right ankle with necrosis of muscle Non-pressure chronic 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 layer exposed Non-pressure chronic ulcer of other part of left foot with fat layer exposed Non-pressure chronic ulcer of left ankle with necrosis of muscle Adverse effect of synthetic cannabinoids, initial encounter Avery coma scale score 13-15, at arrival to emergency department Acute alteration in mental status ESRD (end stage renal disease) on dialysis Short Achilles tendon (acquired), left ankle Short Achilles tendon (acquired), right ankle Acquired cavovarus deformity of left foot Acquired cavovarus deformity of right foot Type 2 diabetes mellitus with diabetic polyneuropathy Adult failure to thrive Debility Charcot's joint, right ankle and foot Charcot's joint, left ankle and foot Drowsiness Mental status, decreased Carotid artery stenosis MSSA bacteremia ESRD on hemodialysis Osteomyelitis Anemia in chronic illness Type 2 diabetes mellitus Foot osteomyelitis, left Chronic renal disease, stage 4, severely decreased glomerular filtration rate (GFR) between 15-29 mL/min/1.73 square meter Acute on chronic anemia Chronic ulcer of right foot with necrosis of bone Chronic kidney disease, stage 4 (severe) Diabetes mellitus with diabetic polyneuropathy Diabetic foot ulcers Chronic kidney disease, stage 3b Cellulitis Acute lumbar radiculopathy Essential hypertension Adult failure to thrive COVID-19 (08/28/21) Chronic ulcer of right leg with fat layer exposed Ulcer of left foot with fat layer exposed Chronic ulcer of right foot with fat layer exposed Hyperparathyroidism, secondary renal Iron deficiency anemia Bilateral edema of lower extremity Chronic foot pain Charcot's joint of right foot Diabetes Non-smoker Myocardial infarct Hypertension TIA (transient ischemic attack) Amputation foot, bilat 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 Ulcer of left foot with necrosis of muscle Ulcer of left foot with muscle involvement without evidence of necrosis Anxiety and depression Diabetic infection of left foot Delayed wound healing Non-compliance Diabetic polyneuropathy Ischemic cardiomyopathy Obesity (BMI 30.0-34.9) Acquired varus deformity of left foot Acquired varus deformity of right foot Atherosclerosis of [place] coronary artery of [place] heart without angina pectoris Hemoglobin A1c greater than 9.0% NSTEMI (non-ST elevated myocardial infarction) (09/20/18) GERD (gastroesophageal reflux disease) HLD (hyperlipidemia) Back pain, chronic RLS (restless legs syndrome) Home Medications ?Medication ?Instructions ?Recorded ?Last Taken ?Type paroxetine HCl 20 mg tablet 20 mg PO DAILY DEPRESSION 07/07/21 04/07/22 History sennosides 8.6 mg-docusate sodium 2 tab PO BID PRN PRN Constipation 04/24/22 Unknown Rx 50 mg tablet (Stool #0 tabs Softener-Stimulant Laxative) ascorbic acid (vitamin C) 500 mg 500 mg PO BID supplement 05/05/22 Unknown History tablet (Vitamin C) ferrous sulfate 325 mg (65 mg 325 mg PO .three times a week 07/19/22 Unknown History iron) tablet anemia pantoprazole 40 mg tablet,delayed 40 mg PO BIDCM GERD 07/19/22 Unknown History release gabapentin 100 mg capsule 100 mg PO .COMPLEX PRN pain 11/26/23 Unknown History amlodipine 5 mg tablet 5 mg PO DAILY bp 12/16/23 Unknown History calcitriol 0.5 mcg capsule 0.5 mcg PO .COMPLEX on dialysis 12/16/23 07/09/24 History calcium acetate(phosphat bind) 667 676 mg PO TID is on dialysis 12/16/23 Unknown History mg capsule folic acid 800 mcg tablet 0.8 mg PO DAILY supplement 12/16/23 Unknown History levothyroxine 25 mcg tablet 25 mcg PO DAILY thyroid 12/16/23 Unknown History nitroglycerin 0.4 mg sublingual 0.4 mg sublingual Q5M chest pain 12/16/23 Unknown History tablet (Nitrostat) aspirin 81 mg capsule 81 mg PO DAILY blood thinner #30 12/26/23 Unknown Rx caps atorvastatin 40 mg tablet 40 mg PO DAILY cholesterol 03/18/24 06/26/24 History carvedilol 25 mg tablet 25 mg PO BID blood pressure 03/18/24 Unknown History hydralazine 50 mg tablet 50 mg PO TID bp #0 tabs 05/21/24 Unknown Rx melatonin 3 mg tablet 3 mg PO QHS PRN PRN Insomnia #0 05/21/24 Unknown Rx tabs menthol 0.44 %-zinc oxide 20.6 % 1 applic topical BID skin care #0 05/21/24 Unknown Rx topical ointment (Calmoseptine) grams sucralfate 1 gram tablet 1 g PO TID@0700,1100,1600 05/21/24 Unknown Rx indigestion #0 tabs lorazepam 0.5 mg tablet 0.5 mg PO MoWeFr@1000 #1 TAB 07/02/24 Unknown Rx oxycodone 5 mg tablet 2.5 mg (1/2 x 5 mg) PO Q8H PRN 07/02/24 Unknown Rx pain 3 days #10 tabs acetaminophen 325 mg tablet 650 mg PO Q6H PRN fever or pain 07/09/24 Unknown History daptomycin 500 mg intravenous 400 mg IV .MWF 35 days 07/10/24 Unknown Rx solution diphenhydramine HCl 25 mg capsule 12.5 mg (1/2 x 25 mg) PO Q6H PRN 07/10/24 Unknown Rx (Banophen) PRN Itching #0 caps ertapenem 1 gram solution for 1 g IV .MWF 35 days #15 ea 07/10/24 Unknown Rx injection insulin lispro 100 unit/mL See Protocol subcut TIDAC blood 07/10/24 Unknown Rx subcutaneous pen (Humalog KwikPen sugar #0 mL (U-100) Insulin) levetiracetam 500 mg tablet 500 mg PO BID 30 days #60 tabs 07/10/24 Unknown Rx Allergy/AdvReac Type Severity Reaction Status Date / Time oxycodone (From OxyContin) Allergy sob Verified 06/27/24 08:27 Penicillins Allergy swelling Verified 06/27/24 08:27 in throat vancomycin Allergy Itching Verified 06/27/24 08:27 metronidazole AdvReac Nausea Verified 06/27/24 08:27 Family History Mother Diabetes CVA (cerebral vascular accident) Brother CAD (coronary artery disease) CABG X 3 Cancer testicular Diabetes Brother CAD (coronary artery disease) CABG X3 Diabetes Brother CAD (coronary artery disease) Stents Diabetes Sister CAD (coronary artery disease) CABG x 3 CVA (cerebral vascular accident) Diabetes Surgical History History of History of foot surgery History of bilateral carpal tunnel release History of rotator cuff surgery History of coronary artery stent placement (12/31/20) Social History household members: none number of children: 2 current occupational status: disabled Smoking Status: Never smoker alcohol intake: never substance use type: does not use caffeine: Yes Type: carbonated beverages Number of servings: 2 EXAM Physical Exam Const Vital Signs: 07/16/24 07:03 07/16/24 07:18 Temperature 97.6 F L Temperature Source Oral Pulse Rate 72 Respiratory Rate 20 H Respiratory Effort Normal Non-Labored Respiratory Depth Normal Respiratory Pattern Normal Blood Pressure 153/90 H Blood Pressure Mean 111 Pulse Ox 97 Oxygen Delivery Method Room Air Room Air MDM MDM MDM Narrative Medical decision making narrative: 59-year-old female presents for evaluation after a fall. Patient fell asleep in her wheelchair outside of dialysis. She did not receive dialysis yet today. Patient states this was purely a mechanical fall from falling asleep. Physical exam unremarkable except for a right frontal hematoma. GCS 15. No LOC. patient negative for Nexus C-spine rule. Differential diagnosis includes but is not limited to closed head injury, head contusion, intracranial bleed. Suspect less likely intracranial bleed. CT head ordered. Patient did not receive her morning oxycodone for her chronic bilateral lower extremity pain. Therefore this was ordered. CT head without any acute abnormality. Patient has chronic changes of the brain. 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 On reexamination, patient is still GCS 15. Patient is stable to discharge back to dialysis. Impression: 1. Right frontal hematoma 2. Mechanical fall Radiography Diagnostic Testing: Clinical Impression(s) from Imaging Studies Brain CT 07/16/24 07:09 IMPRESSION: 1. Chronic involutional changes of the brain. 2. 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 3. No demonstrated acute intracranial process. Electronically Signed: Wai Cameron MD at 7:51 EDT Reading Location ID and State: [facility] / [place] , Service support , Discharge Plan Triage Chief Complaint: Fall ED Provider: Juancarlos Garcia Dx/Rx/DC Orders Prescriptions: No Action paroxetine HCl 20 mg tablet 20 mg PO DAILY Patient Comments: TAKE 1 TABLET BY MOUTH EVERY DAY IN THE EVENING sennosides-docusate sodium [Stool Softener-Stimulant Laxat] 8.6-50 mg Tablet 2 tab PO BID PRN PRN (Reason: Constipation) Qty: 0 0RF ascorbic acid (vitamin C) [Vitamin C] 500 mg Tablet 500 mg PO BID pantoprazole 40 mg tablet,delayed release (DR/EC) 40 mg PO BIDCM ferrous sulfate 325 mg (65 mg iron) tablet 325 mg PO .three times a week Patient Comments: takes three times a week, on Tuesday, and Tuesday gabapentin 100 mg capsule 100 mg PO .COMPLEX PRN (Reason: pain) Rx Instructions: 100 mg orally 3 times a week Tuesday, Tuesday and Tuesday atorvastatin 40 mg tablet 40 mg PO DAILY carvedilol 25 mg tablet 25 mg PO BID melatonin 3 mg Tablet 3 mg PO QHS PRN PRN (Reason: Insomnia) Qty: 0 0RF hydralazine 50 mg Tablet 50 mg PO TID Qty: 0 0RF menthol-zinc oxide [Calmoseptine] 0.44-20.6 % Ointment 1 applic topical BID Qty: 0 0RF Protocol: *Topical Application Instructions APPLICATION INSTRUCTIONS: BUTTOCKS sucralfate 1 gram Tablet 1 g PO TID@0700,1100,1600 Qty: 0 0RF acetaminophen 325 mg Tablet 650 mg PO Q6H PRN (Reason: fever or pain) daptomycin 500 mg recon soln 400 mg IV .MWF 35 Days Rx Instructions: stop date 08/08/24. Dx: R foot osteo. Daptomycin dosed with HD - 400mg on Tue, 400mg on Tue, 600mg on Tuesday. Weekly bmp, cbc, LFT, CK, and esr. Fax to [phone]. ertapenem 1 gram recon soln 1 g IV .MW 35 Days Qty: 15 0RF Rx Instructions: stop date 08/08/24. Dx: R foot osteo. Ertapenem dosed with HD - 1gm on Tue-Tue-Tue. Weekly bmp, cbc, LFT, CK, and esr. Fax to [phone]. levetiracetam 500 mg Tablet 500 mg PO BID 30 Days Qty: 60 2RF diphenhydramine HCl [Banophen] 25 mg Capsule 12.5 mg PO Q6H PRN PRN (Reason: Itching) Qty: 0 0RF insulin lispro [Humalog KwikPen Insulin] 100 unit/mL Insulin Pen See Protocol subcut TIDAC Qty: 0 0RF Protocol: 4. Sliding Scale Insulin High-Med Dosing Condition: 150-199 mg/dl = 2 units Condition: 200-259 mg/dl = 4 units Condition: 260-324 mg/dl = 6 units Condition: 325-374 mg/dl = 8 units Condition: 375-409 mg/dl = 10 units Condition: 410-449 mg/dl = 11 units Condition: Greater than 449 call physician Protocol Text: Suggested for: - Patients on Total Daily Insulin Dose of 56-80 units - Patient who are known to be insulin resistant or septic HIGH MEDIUM DOSING ALGORITHM calcium acetate(phosphat bind) 667 mg capsule 676 mg PO TID Patient Comments: TAKE 1 CAPSULE BY MOUTH THREE TIMES A DAY WITH FOOD folic acid 800 mcg tablet 0.8 mg PO DAILY Patient Comments: TAKE 1 TABLET BY MOUTH EVERY DAY levothyroxine 25 mcg tablet 25 mcg PO DAILY Patient Comments: TAKE 1 TABLET BY MOUTH EVERY DAY BEFORE BREAKFAST amlodipine 5 mg tablet 5 mg PO DAILY calcitriol 0.5 mcg capsule 0.5 mcg PO .COMPLEX Rx Instructions: 0.5 mcg orally three times a week; nitroglycerin [Nitrostat] 0.4 mg tablet, sublingual 0.4 mg sublingual Q5M Rx Instructions: do not exceed 3 doses per episode aspirin 81 mg capsule 81 mg PO DAILY Qty: 30 1RF lorazepam 0.5 mg Tablet 0.5 mg PO MoWeFr@1000 Qty: 1 0RF oxycodone 5 mg tablet 2.5 mg PO Q8H PRN (Reason: pain) 3 Days Qty: 10 0RF Primary Care Provider: Raúl Eric Referrals: Raúl Eric MD [Primary Care Provider] - Print Language: Greenlandic
[2024-07-16] MEDS: oxyCODONE 5 MG Tablet PO (07:15)
[2024-07-16 09:02] VITALS: BP 146/79; PULSE 72; RESP 18; O2SAT 99
[2024-07-16 09:04] VITALS: BP 146/79; PULSE 72; RESP 18; TEMP 36.6; O2SAT 99
== END 2024-07-16 09:11 | disposition home or self-care (01) ==
PROVIDERS: Emergency Provider Surgery; PCP Family Medicine; Visit Provider Surgery
DX: S00.83XA Contusion of other part of head, initial encounter (principal); N18.6 End stage renal disease; I12.0 Hypertensive chronic kidney disease with stage 5 chronic kidney disease or end stage renal disease; E11.22 Type 2 diabetes mellitus with diabetic chronic kidney disease; E11.42 Type 2 diabetes mellitus with diabetic polyneuropathy; W05.0XXA Fall from non-moving wheelchair, initial encounter; Y93.84 Activity, sleeping; G89.29 Other chronic pain; M79.604 Pain in right leg; M79.605 Pain in left leg; E78.5 Hyperlipidemia, unspecified; I25.10 Atherosclerotic heart disease of native coronary artery without angina pectoris; I25.5 Ischemic cardiomyopathy; Z99.2 Dependence on renal dialysis; Z86.73 Personal history of transient ischemic attack (TIA), and cerebral infarction without residual deficits
CPT/HCPCS: 70450; 99282

== ENCOUNTER 2024-09-13 15:30 | Inpatient (IN) | payer MEDICARE, MEDICAID, SELFPAY ==
[2018-09-21 13:23] VITALS: BMI 29.3
[2024-09-13] VITALS (13 sets, daily range): BP systolic 125–144; BP diastolic 57–112; PULSE 69–74; RESP 12–18; TEMP 36.4–36.9; O2SAT 90–98; BMI 27.3
--- NOTE | 2024-09-13 15:41 | EKG12_ITS ---
Test Reason : Blood Pressure : */* mmHG Vent. Rate : 71 BPM Atrial Rate : 71 BPM P-R Int : 172 ms QRS Dur : 90 ms QT Int : 416 ms P-R-T Axes : 43 20 35 degrees QTcB Int : 452 ms Normal sinus rhythm Normal ECG Confirmed by Kayden Elaine ([id number]), editor in chief newspaper DAVID CARCAMO ([id number]) on 09/14/2024 1:43:32 PM Referred By: Confirmed By: Kayden Elaine
--- NOTE | 2024-09-13 16:05 | EDS_ITS ---
HPI History of Present Illness Chief Complaint: Abn Labs Narrative Narrative: Patient is a 59-year-old female with past medical history of chronic ulcer of the right ankle, CKD on dialysis Tuesday, type 2 diabetes, osteomyelitis of her foot, TIA who presented to the emergency department with a chief complaint of abnormal urine culture. According to EMS and staff the patient had a VRE positive urine culture and was sent here by her facility. Patient states that she has not had any burning with urination increased frequency of urinating she states that she makes very little urine as she is on dialysis 3 days a week. Patient states that she has had some abdominal pain going on for several weeks but this is unchanged. [facility] Medical History Non-pressure chronic ulcer of right ankle with necrosis of muscle Non-pressure chronic 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 layer exposed Non-pressure chronic ulcer of other part of left foot with fat layer exposed Non-pressure chronic ulcer of left ankle with necrosis of muscle Adverse effect of synthetic cannabinoids, initial encounter [place] coma scale score 13-15, at arrival to emergency department Acute alteration in mental status ESRD (end stage renal disease) on dialysis Short Achilles tendon (acquired), left ankle Short Achilles tendon (acquired), right ankle Acquired cavovarus deformity of left foot Acquired cavovarus deformity of right foot Type 2 diabetes mellitus with diabetic polyneuropathy Adult failure to thrive Debility Charcot's joint, right ankle and foot Charcot's joint, left ankle and foot Drowsiness Mental status, decreased Carotid artery stenosis MSSA bacteremia ESRD on hemodialysis Osteomyelitis Anemia in chronic illness Type 2 diabetes mellitus Foot osteomyelitis, left Chronic renal disease, stage 4, severely decreased glomerular filtration rate (GFR) between 15-29 mL/min/1.73 square meter Acute on chronic anemia Chronic ulcer of right foot with necrosis of bone Chronic kidney disease, stage 4 (severe) Diabetes mellitus with diabetic polyneuropathy Diabetic foot ulcers Chronic kidney disease, stage 3b Cellulitis Acute lumbar radiculopathy Essential hypertension Adult failure to thrive COVID-19 (08/28/21) Chronic ulcer of right leg with fat layer exposed Ulcer of left foot with fat layer exposed Chronic ulcer of right foot with fat layer exposed Hyperparathyroidism, secondary renal Iron deficiency anemia Bilateral edema of lower extremity Chronic foot pain Charcot's joint of right foot Diabetes Non-smoker Myocardial infarct Hypertension TIA (transient ischemic attack) Amputation foot, bilat 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 Ulcer of left foot with necrosis of muscle Ulcer of left foot with muscle involvement without evidence of necrosis Anxiety and depression Diabetic infection of left foot Delayed wound healing Non-compliance Diabetic polyneuropathy Ischemic cardiomyopathy Obesity (BMI 30.0-34.9) Acquired varus deformity of left foot Acquired varus deformity of right foot Atherosclerosis of [place] coronary artery of [place] heart without angina pectoris Hemoglobin A1c greater than 9.0% NSTEMI (non-ST elevated myocardial infarction) (09/20/18) GERD (gastroesophageal reflux disease) HLD (hyperlipidemia) Back pain, chronic RLS (restless legs syndrome) Home Medications ?Medication ?Instructions ?Recorded ?Last Taken ?Type paroxetine HCl 20 mg tablet 20 mg PO DAILY DEPRESSION 07/07/21 04/07/22 History sennosides 8.6 mg-docusate sodium 2 tab PO BID PRN PRN Constipation 04/24/22 Unknown Rx 50 mg tablet (Stool #0 tabs Softener-Stimulant Laxative) ascorbic acid (vitamin C) 500 mg 500 mg PO BID supplement 05/05/22 Unknown History tablet (Vitamin C) pantoprazole 40 mg tablet,delayed 40 mg PO BIDCM GERD 07/19/22 Unknown History release gabapentin 100 mg capsule 100 mg PO .COMPLEX PRN pain 11/26/23 Unknown History amlodipine 5 mg tablet 5 mg PO DAILY bp 12/16/23 Unknown History calcitriol 0.5 mcg capsule 0.5 mcg PO .COMPLEX on dialysis 12/16/23 07/09/24 History calcium acetate(phosphat bind) 667 676 mg PO TID is on dialysis 12/16/23 Unknown History mg capsule folic acid 800 mcg tablet 0.8 mg PO DAILY supplement 12/16/23 Unknown History levothyroxine 25 mcg tablet 25 mcg PO DAILY thyroid 12/16/23 Unknown History nitroglycerin 0.4 mg sublingual 0.4 mg sublingual Q5M chest pain 12/16/23 Unknown History tablet (Nitrostat) aspirin 81 mg capsule 81 mg PO DAILY blood thinner #30 12/26/23 Unknown Rx caps atorvastatin 40 mg tablet 40 mg PO DAILY cholesterol 03/18/24 06/26/24 History carvedilol 25 mg tablet 25 mg PO BID blood pressure 03/18/24 Unknown History hydralazine 50 mg tablet 50 mg PO TID bp #0 tabs 05/21/24 Unknown Rx melatonin 3 mg tablet 3 mg PO QHS PRN PRN Insomnia #0 05/21/24 Unknown Rx tabs menthol 0.44 %-zinc oxide 20.6 % 1 applic topical BID skin care #0 05/21/24 Unknown Rx topical ointment (Calmoseptine) grams sucralfate 1 gram tablet 1 g PO TID@0700,1100,1600 05/21/24 Unknown Rx indigestion #0 tabs oxycodone 5 mg tablet 2.5 mg (1/2 x 5 mg) PO Q8H PRN 07/02/24 Unknown Rx pain 3 days #10 tabs acetaminophen 325 mg tablet 650 mg PO Q6H PRN fever or pain 07/09/24 Unknown History diphenhydramine HCl 25 mg capsule 12.5 mg (1/2 x 25 mg) PO Q6H PRN 07/10/24 Unknown Rx (Banophen) PRN Itching #0 caps ertapenem 1 gram solution for 1 g IV .MWF 35 days #15 ea 07/10/24 Unknown Rx injection levetiracetam 500 mg tablet 500 mg PO BID 30 days #60 tabs 07/10/24 Unknown Rx insulin lispro 100 unit/mL 10 unit subcut TIDAC blood sugar 09/13/24 Unknown History subcutaneous pen (Humalog KwikPen (U-100) Insulin) ipratropium 0.5 mg-albuterol 3 mg 3 ml inhalation Q4H 09/13/24 Unknown History (2.5 mg base)/3 mL nebulization soln lorazepam 0.5 mg tablet 0.5 mg PO Q12H PRN anxiety 09/13/24 Unknown History ondansetron HCl 4 mg tablet 4 mg PO Q4H PRN PRN nausea and 09/13/24 Unknown History vomiting sevelamer carbonate 800 mg tablet 1,600 mg PO TID 09/13/24 Unknown History Allergy/AdvReac Type Severity Reaction Status Date / Time oxycodone (From OxyContin) Allergy sob Verified 09/13/24 15:36 Penicillins Allergy swelling Verified 09/13/24 15:36 in throat vancomycin Allergy Itching Verified 09/13/24 15:36 metronidazole AdvReac Nausea Verified 09/13/24 15:36 Family History Mother Diabetes CVA (cerebral vascular accident) Brother CAD (coronary artery disease) CABG X 3 Cancer testicular Diabetes Brother CAD (coronary artery disease) CABG X3 Diabetes Brother CAD (coronary artery disease) Stents Diabetes Sister CAD (coronary artery disease) CABG x 3 CVA (cerebral vascular accident) Diabetes Surgical History History of History of foot surgery History of bilateral carpal tunnel release History of rotator cuff surgery History of coronary artery stent placement (12/31/20) Social History household members: none number of children: 2 current occupational status: disabled Smoking Status: Never smoker alcohol intake: never substance use type: does not use caffeine: Yes Type: carbonated beverages Number of servings: 2 ROS ROS ED ROS Narrative Constitutional: Denies any fevers, chills, headaches, lightness, dizziness Eyes: As denies change in vision double vision blurry vision Cardiovascular: Denies chest pain or palpitations Respiratory: Denies cough or shortness of breath Abdomen: Complains of abdominal discomfort as noted above denies any nausea vomiting diarrhea : Denies any urinary symptoms Neurological: Denies any numbness, weakness, tingling Musculoskeletal: Denies back pain Skin: Denies any rashes or lesions states that she has chronic wound on her foot EXAM Physical Exam Narrative Exam Narrative: General: Patient lying in bed rest comfortably did not appear to be in acute distress Head: Atraumatic, normocephalic Eyes: PERRL bilateral, EOMI bladder, no conjunctival injection noted Neck: Soft, supple, trachea midline Cardiovascular: Regular rate and rhythm no murmurs gallops rubs noted Respiratory: Clear to auscultation bilaterally Abdomen: Soft, nondistended, mild tenderness palpation no rebound or guarding on exam, bowel sounds present x 4 she notes that her pain has remained unchanged after several weeks Extremities: +4/5 strength noted in the bilateral upper and lower extremities, DP pulses +2/4 in the bilateral lower extremities Neurological: Patient following commands knew that she was at [facility] year is 2023 Skin: Patient has chronic wound noted on the right lateral aspect of her foot no concern for active infection at this point time no purulent drainage noted no surrounding erythema Const Vital Signs: 09/13/24 15:31 09/13/24 15:34 09/13/24 15:35 Temperature 97.8 F 97.6 F L Temperature Source Oral Oral Pulse Rate 73 73 Respiratory Rate 18 18 Respiratory Effort Normal Non-Labored Respiratory Pattern Normal Blood Pressure 125/60 H 125/60 H Blood Pressure Mean 81 81 Pulse Ox 94 92 Oxygen Delivery Method Room Air Room Air Oxygen Flow Rate (L/min) 09/13/24 15:44 09/13/24 16:34 09/13/24 17:00 Temperature 97.5 F L 98.5 F Temperature Source Oral Oral Pulse Rate 72 74 Respiratory Rate 16 16 Respiratory Effort Respiratory Pattern Blood Pressure 127/112 H 125/72 H Blood Pressure Mean 117 89 Pulse Ox 94 91 90 Oxygen Delivery Method Room Air Room Air Room Air Oxygen Flow Rate (L/min) 09/13/24 17:57 09/13/24 19:00 Temperature 97.9 F 97.9 F Temperature Source Oral Oral Pulse Rate 74 70 Respiratory Rate 12 16 Respiratory Effort Respiratory Pattern Blood Pressure 139/78 H 138/75 H Blood Pressure Mean 98 96 Pulse Ox 98 95 Oxygen Delivery Method Nasal Cannula Nasal Cannula Oxygen Flow Rate (L/min) 2 2 MDM MDM MDM Narrative Medical decision making narrative: Patient is a 59-year-old female who presented to the emergency department with a chief complaint of positive urine culture. Patient will have a workup performed here on the differential diagnose includes but not limited to UTI, pyel onephritis. Once workup is obtained reviewed she will be reevaluated. I did review the patient's urine culture and she had 10,000-50,000 colony-forming units of VRE. Patient's CBC reviewed and showed no evidence leukocytosis white blood count normal 8.9, hemoglobin is 10.1, platelet count was noted be 458. Patient's INR normal 1.1, sodium of 135, potassium was 5.2, creatinine was 4.95 she is due for dialysis tomorrow, AST and ALT are 24 and 22 respectively. Patient's urinalysis showed 100 leukocyte esterase, greater than 100 white cells with 1+ bacteria given that she had a positive culture for VRE and multiple attempts at contacting infectious disease will treat the patient for now with daptomycin and admit her to the hospital will discuss case with hospitalist. Patient was given daptomycin. Patient is EKG reviewed and showed sinus rhythm with a rate of 71 bpm this was independently interpreted by myself. Did discuss case with hospitalist Dr. Rodriguez who accept patient for a dmission. Patient notified with all question concerns answered bedside. Lab Data Labs: Laboratory Results - last 24 hr 09/13/24 09/13/24 15:55 16:18 WBC 8.9 RBC 3.35 L Hgb 10.1 L Hct 33.3 L MCV 99.4 H MCH 30.1 MCHC 30.3 L RDW Std Deviation 62.4 H RDW Coeff of [place] 17.0 H Plt Count 458 H MPV 9.2 Immature Gran % (Auto) 0.400 Neut % (Auto) 74.8 H Lymph % (Auto) 12.7 L [place] % (Auto) 9.0 Eos % (Auto) 1.6 Baso % (Auto) 1.5 H Absolute Neuts (auto) 6.7 Absolute Lymphs (auto) 1.13 Nucleated RBC % 0 PT 14.6 INR 1.1 APTT 34.5 Sodium 135 L Potassium 5.2 H Chloride 100 Carbon Dioxide 30.0 Anion Gap 5 BUN 32 H Creatinine 4.95 H Estim Creat Clear Calc 12.02 Est GFR (MDRD) Af Amer 12 L Est GFR (MDRD) Non-Af 10 L BUN/Creatinine Ratio 6.5 L Glucose 143 H Lactic Acid 1.1 Calcium 9.2 Total Bilirubin 0.40 AST 24 ALT 22 Alkaline Phosphatase 251 H Total Protein 8.8 H Albumin 2.7 L Globulin 6.1 H Albumin/Globulin Ratio 0.4 L Urine Color Yellow Urine Clarity Clear Urine pH 8.0 Ur Specific [place] 1.010 Urine Protein 500 H Urine Glucose (UA) Normal Urine Ketones Negative Urine Occult Blood 10 H Urine Nitrite Negative Urine Bilirubin Negative Urine Urobilinogen Normal Ur Leukocyte Esterase 100 H Urine RBC 0 SEEN Urine WBC >100 SEEN Ur Squamous Epith Cells 5-10 SEEN Ur Transition Epith Cell 0-5 SEEN Urine Bacteria 1+ Hyaline Casts 0-5 SEEN Urine Mucus 0 SEEN Radiography Diagnostic Testing: Clinical Impression(s) from Imaging Studies Chest X-Ray 09/13/24 16:25 IMPRESSION: Significantly improved aeration in the left lung base prior study. Mild atelectasis or infiltrate with small pleural effusion in the left lung base, also present previously. Electronically Signed: Alexis Rosales MD at 17:26 EST , Discharge Plan Triage Chief Complaint: Abn Labs ED Provider: Dick Vaughn Dx/Rx/DC Orders Clinical Impression: VRE (vancomycin resistant enterococcus) culture positive, Urinary tract infection Prescriptions: No Action paroxetine HCl 20 mg tablet 20 mg PO DAILY Patient Comments: TAKE 1 TABLET BY MOUTH EVERY DAY IN THE EVENING sennosides-docusate sodium [Stool Softener-Stimulant Laxat] 8.6-50 mg Tablet 2 tab PO BID PRN PRN (Reason: Constipation) Qty: 0 0RF ascorbic acid (vitamin C) [Vitamin C] 500 mg Tablet 500 mg PO BID pantoprazole 40 mg tablet,delayed release (DR/EC) 40 mg PO BIDCM gabapentin 100 mg capsule 100 mg PO .COMPLEX PRN (Reason: pain) Rx Instructions: 100 mg orally 3 times a week Tuesday, Tuesday and Tuesday atorvastatin 40 mg tablet 40 mg PO DAILY carvedilol 25 mg tablet 25 mg PO BID melatonin 3 mg Tablet 3 mg PO QHS PRN PRN (Reason: Insomnia) Qty: 0 0RF hydralazine 50 mg Tablet 50 mg PO TID Qty: 0 0RF menthol-zinc oxide [Calmoseptine] 0.44-20.6 % Ointment 1 applic topical BID Qty: 0 0RF Protocol: *Topical Application Instructions APPLICATION INSTRUCTIONS: BUTTOCKS sucralfate 1 gram Tablet 1 g PO TID@0700,1100,1600 Qty: 0 0RF acetaminophen 325 mg Tablet 650 mg PO Q6H PRN (Reason: fever or pain) ertapenem 1 gram recon soln 1 g IV .MWF 35 Days Qty: 15 0RF Rx Instructions: stop date 08/08/24. Dx: R foot osteo. Ertapenem dosed with HD - 1gm on Tue-Tue-Tue. Weekly bmp, cbc, LFT, CK, and esr. Fax to [phone]. levetiracetam 500 mg Tablet 500 mg PO BID 30 Days Qty: 60 2RF diphenhydramine HCl [Banophen] 25 mg Capsule 12.5 mg PO Q6H PRN PRN (Reason: Itching) Qty: 0 0RF ipratropium-albuterol 0.5 mg-3 mg(2.5 mg base)/3 mL solution for nebulization 3 ml inhalation Q4H sevelamer carbonate 800 mg tablet 1,600 mg PO TID ondansetron HCl 4 mg tablet 4 mg PO Q4H PRN PRN (Reason: nausea and vomiting) lorazepam 0.5 mg Tablet 0.5 mg PO Q12H PRN (Reason: anxiety) insulin lispro [Humalog KwikPen Insulin] 100 unit/mL Insulin Pen 10 unit subcut TIDAC Protocol: 4. Sliding Scale Insulin High-Med Dosing Condition: 150-199 mg/dl = 2 units Condition: 200-259 mg/dl = 4 units Condition: 260-324 mg/dl = 6 units Condition: 325-374 mg/dl = 8 units Condition: 375-409 mg/dl = 10 units Condition: 410-449 mg/dl = 11 units Condition: Greater than 449 call physician Protocol Text: Suggested for: - Patients on Total Daily Insulin Dose of 56-80 units - Patient who are known to be insulin resistant or septic HIGH MEDIUM DOSING ALGORITHM calcium acetate(phosphat bind) 667 mg capsule 676 mg PO TID Patient Comments: TAKE 1 CAPSULE BY MOUTH THREE TIMES A DAY WITH FOOD folic acid 800 mcg tablet 0.8 mg PO DAILY Patient Comments: TAKE 1 TABLET BY MOUTH EVERY DAY levothyroxine 25 mcg tablet 25 mcg PO DAILY Patient Comments: TAKE 1 TABLET BY MOUTH EVERY DAY BEFORE BREAKFAST amlodipine 5 mg tablet 5 mg PO DAILY calcitriol 0.5 mcg capsule 0.5 mcg PO .COMPLEX Rx Instructions: 0.5 mcg orally three times a week; nitroglycerin [Nitrostat] 0.4 mg tablet, sublingual 0.4 mg sublingual Q5M Rx Instructions: do not exceed 3 doses per episode aspirin 81 mg capsule 81 mg PO DAILY Qty: 30 1RF oxycodone 5 mg tablet 2.5 mg PO Q8H PRN (Reason: pain) 3 Days Qty: 10 0RF Primary Care Provider: Raúl Eric Referrals: Raúl Eric MD [Primary Care Provider] - Print Language: French Disposition Disposition: Acute Care Hospital [facility]
[2024-09-13 16:06] LABS: Absolute Lymphocyte Count 1.13 X10^3/uL (0.83-4.51); Absolute Neutrophil Count 6.7 X10^3/uL (2.0-7.7); Basophil# 0.13 X10^3/uL; Basophil% 1.5 % (0-1); Eosinophil# 0.14 X10^3/uL; Eosinophils% 1.6 % (0-5); Hematocrit 33.3 % (37-47); Hemoglobin 10.1 g/dL (12.0-15.0); Lymphocyte # 1.13 X10^3/ul (0.83-4.51); Lymphocyte % 12.7 % (19-41); Mean Corp Hgb Conc 30.3 g/dL (32-36); Mean Corpuscular Hgb 30.1 pg (27.0-32.0); Mean Corpuscular Volume 99.4 fL (81-99); Mean Platelet Vol. 9.2 fl (6.2-12.0); NRBC Flagged by Analyzer 0 % (0-5); Neutrophil # 6.65 X10^3/uL (2.7-7.7); Neutrophil % 74.8 % (47-70); Platelet Count 458 K/mm3 (150-450); RBC Distribution Width SD 62.4 fl (35.1-43.9); Red Blood Count 3.35 M/mm3 (4.2-5.4); White Blood Count 8.9 K/mm3 (4.4-11.0)
[2024-09-13 16:16] LABS: International Normalized Ratio 1.1; Prothrombin Time (Protime)PT. 14.6 SECONDS (11.7-14.9)
[2024-09-13 16:17] LABS: Partial Thromboplast Time 34.5 Seconds (24.1-36.2)
--- NOTE | 2024-09-13 16:25 | RAD_ITS ---
STUDY: X-RAY CHEST REASON FOR EXAM: Female, 59 years old. positive cultures TECHNIQUE: Frontal and lateral views of the chest. COMPARISON: 06/29/2024. FINDINGS: Stable double-lumen dialysis catheter terminates in the right atrium. Mild atelectasis or infiltrate in the lower right lung possibly with small effusion. Significantly improved aeration in the left lung base. There is mild cardiac enlargement. Normal mediastinum and elvie. Normal visualized pulmonary arteries. Normal visualized aortic arch and descending thoracic aorta. Extensive postsurgical changes seen with fixation hardware of the lumbar spine Normal visualized ribs, clavicles, and shoulders. There is no demonstrated abnormality of the visualized soft tissue structures of the upper abdomen. RAD/Chest PA and Lateral IMPRESSION: Significantly improved aeration in the left lung base prior study. Mild atelectasis or infiltrate with small pleural effusion in the left lung base, also present previously. Electronically Signed: Alexis Rosales MD at 17:26 EST ,
[2024-09-13 16:30] LABS: ALB/GLOB Ratio 0.4 RATIO (0.9-2.4); AST(SGOT) 24 U/L (15-37); Alanine Aminotransfer ALT/SGPT 22 U/L (13-56); Albumin, Serum 2.7 g/dL (3.2-5.0); Alkaline Phosphatase 251 U/L (45-117); Anion Gap 5 (5-15); BUN 32 mg/dL (7-18); BUN/Creat Ratio 6.5 RATIO (10-20); Calcium,Total 9.2 mg/dL (8.5-10.1); Chloride 100 mmol/L (98-107); Creatinine, Serum 4.95 mg/dL (0.55-1.02); EST Glomerular Filtration Rate 10 mL/min (>60); Est Glom Filt Rate - Afr Amer 12 mL/min (>60); Estimated Creatinine Clearance 12.02 ml/min; Globulin 6.1 g/dL (2.2-4.2); Glucose 143 mg/dL (74-106); Potassium 5.2 mmol/L (3.5-5.1); Protein, Total 8.8 g/dL (6.4-8.2); Sodium Level 135 mmol/L (136-145)
[2024-09-13 16:30] LABS: Mucous, Urine 0 SEEN /hpf (<or=2+); Red Blood Cells-Urine 0 SEEN /hpf (0-5)
[2024-09-13 16:33] LABS: Lactic Acid 1.1 mmol/L (0.4-1.9)
[2024-09-13 17:16] LABS: Color, Urine Yellow (Yellow); Glucose, Dipstick Normal (Normal); Ketone-Dipstick Negative (Negative); Leukocyte Esterase-Dipstick 100 /ul (Negative); Nitrite-Dipstick Negative (Negative); Occult Blood-Urine 10 /ul (Negative); Protein-Dipstick 500 mg/dl (Negative); Urine Bilirubin Dipstick Negative (Negative); Urine Clarity Clear (Clear); Urine Urobilinogen Normal (Normal)
[2024-09-13] MEDS: DiphenhydrAMINE 50 MG/ML Syringe 25 MG IV (17:24)
[2024-09-13 17:48] LABS: Bacteria 1+ /hpf (None Seen); Hyaline Cast 0-5 SEEN /lpf (0-5); Squamous Epithelial Cells - UA 5-10 SEEN /hpf (5-10); Transitional Epithelial - Ur 0-5 SEEN /hpf (0-5); White Blood Cells >100 SEEN /hpf (0-5)
[2024-09-13] MEDS: oxyCODONE 5 MG Tablet 10 MG PO (17:55)
[2024-09-13] MEDS: Ondansetron ODT 4 MG Tablet PO (17:55)
--- NOTE | 2024-09-13 19:20 | PCM.HP.STD ---
[facility] - General General Date of Admission: 09/13/24 Date of Service: 09/13/24 Chief Complaint: VRE+ Urine Culture at ECF. HPI Narrative DIONY CARRILLO, is a 59 F with a past medical history of essential hypertension; on amlodipine, carvedilol and hydralazine, hyperlipidemia; on atorvastatin, hypothyroidism; on levothyroxine, obesity; with BMI of 30 this admission, ESRD on HD; (M-W-F), DM-2; of unknown control on lispro insulin 10 U TID AC, diabetic neuropathy; on gabapentin with Charcot deformity of both feet, history of DFU with osteomyelitis of the Right foot with necrosis of bone and history of DFU of the Left foot; with history of acquired cavovarus deformity of both feet with shortened Achilles tendons and subsequent bilateral amputations of multiple toes, history of MRSA bacteremia, CAD; s/p NSTEMI x 2 with stents x 3 in (2017) and (2020) on prn SL NTG, history of ischemic cardiomyopathy; with LVEF ~45%, history of TIA, history of seizure disorder ; on levetiracetam, history of carotid artery stenosis, history of COVID-19 (2020), listed allergy to PCN (throat swelling), listed allergy to vancomycin (itching), listed allergy to metronidazole (nausea), listed allergy to oxycodone (SOB), RLS, depression with anxiety; on paroxetine and prn lorazepam BID, GERD; on pantoprazole BID and sucralfate TID, history of bilateral CTS; s/p release, history of Right rotator cuff surgery, remote history of , OA; with history of lumbar radiculopathy and chronic pain or prn oxycodone, chronic anemia chronic debility with adult [id number] and history of medical noncompliance who presents to [facility] ER complaining of having a urine culture positive for VRE at her ECF resulting in her being sent in for further evaluation and treatment. Ms. Carrillo reports she has not has dysuria or frequent urination as she makes very little urine since she has been on HD. She admits to chronic, ongoing, [id number]-[id number] cramping abdominal pain for the past few weeks that is unchanged from previous. Patient was also noted to afebrile with normal vital signs and nontoxic appearance and no other significant complaints. Her latest urine culture revealed 10-50K CFU of VRE with a normal WBC of 8.9K present on admission with a UA revealing evidence of Acute Cystitis; without hematuria with ER physician reaching out to infectious disease clinical program consultant for further guidance with patient then started on IV Daptomycin and she was noted to have mild Hyperkalemia of 5.2 mmol/L present on admission with patient due for HD session in AM and she was then admitted to the general medical floor for ongoing care for a stay that is expected to extend beyond 2 midnights. [facility] Medical History Non-pressure chronic ulcer of right ankle with necrosis of muscle Non-pressure chronic 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 layer exposed Non-pressure chronic ulcer of other part of left foot with fat layer exposed Non-pressure chronic ulcer of left ankle with necrosis of muscle Adverse effect of synthetic cannabinoids, initial encounter Avery coma scale score 13-15, at arrival to emergency department Acute alteration in mental status ESRD (end stage renal disease) on dialysis Short Achilles tendon (acquired), left ankle Short Achilles tendon (acquired), right ankle Acquired cavovarus deformity of left foot Acquired cavovarus deformity of right foot Type 2 diabetes mellitus with diabetic polyneuropathy Adult failure to thrive Debility Charcot's joint, right ankle and foot Charcot's joint, left ankle and foot Drowsiness Mental status, decreased Carotid artery stenosis MSSA bacteremia ESRD on hemodialysis Osteomyelitis Anemia in chronic illness Type 2 diabetes mellitus Foot osteomyelitis, left Chronic renal disease, stage 4, severely decreased glomerular filtration rate (GFR) between 15-29 mL/min/1.73 square meter Acute on chronic anemia Chronic ulcer of right foot with necrosis of bone Chronic kidney disease, stage 4 (severe) Diabetes mellitus with diabetic polyneuropathy Diabetic foot ulcers Chronic kidney disease, stage 3b Cellulitis Acute lumbar radiculopathy Essential hypertension Adult failure to thrive COVID-19 (08/28/21) Chronic ulcer of right leg with fat layer exposed Ulcer of left foot with fat layer exposed Chronic ulcer of right foot with fat layer exposed Hyperparathyroidism, secondary renal Iron deficiency anemia Bilateral edema of lower extremity Chronic foot pain Charcot's joint of right foot Diabetes Non-smoker Myocardial infarct Hypertension TIA (transient ischemic attack) Amputation foot, bilat 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 Ulcer of left foot with necrosis of muscle Ulcer of left foot with muscle involvement without evidence of necrosis Anxiety and depression Diabetic infection of left foot Delayed wound healing Non-compliance Diabetic polyneuropathy Ischemic cardiomyopathy Obesity (BMI 30.0-34.9) Acquired varus deformity of left foot Acquired varus deformity of right foot Atherosclerosis of che[place] coronary artery of che[place] heart without angina pectoris Hemoglobin A1c greater than 9.0% NSTEMI (non-ST elevated myocardial infarction) (09/20/18) GERD (gastroesophageal reflux disease) HLD (hyperlipidemia) Back pain, chronic RLS (restless legs syndrome) Home Medications ?Medication ?Instructions ?Recorded ?Last Taken ?Type paroxetine HCl 20 mg tablet 20 mg PO DAILY DEPRESSION 07/07/21 04/07/22 History sennosides 8.6 mg-docusate sodium 2 tab PO BID PRN PRN Constipation 04/24/22 Unknown Rx 50 mg tablet (Stool #0 tabs Softener-Stimulant Laxative) ascorbic acid (vitamin C) 500 mg 500 mg PO BID supplement 05/05/22 Unknown History tablet (Vitamin C) pantoprazole 40 mg tablet,delayed 40 mg PO BIDCM GERD 07/19/22 Unknown History release gabapentin 100 mg capsule 100 mg PO .COMPLEX PRN pain 11/26/23 Unknown History amlodipine 5 mg tablet 5 mg PO DAILY bp 12/16/23 Unknown History calcitriol 0.5 mcg capsule 0.5 mcg PO .COMPLEX on dialysis 12/16/23 07/09/24 History calcium acetate(phosphat bind) 667 676 mg PO TID is on dialysis 12/16/23 Unknown History mg capsule folic acid 800 mcg tablet 0.8 mg PO DAILY supplement 12/16/23 Unknown History levothyroxine 25 mcg tablet 25 mcg PO DAILY thyroid 12/16/23 Unknown History nitroglycerin 0.4 mg sublingual 0.4 mg sublingual Q5M chest pain 12/16/23 Unknown History tablet (Nitrostat) aspirin 81 mg capsule 81 mg PO DAILY blood thinner #30 12/26/23 Unknown Rx caps atorvastatin 40 mg tablet 40 mg PO DAILY cholesterol 03/18/24 06/26/24 History carvedilol 25 mg tablet 25 mg PO BID blood pressure 03/18/24 Unknown History hydralazine 50 mg tablet 50 mg PO TID bp #0 tabs 05/21/24 Unknown Rx melatonin 3 mg tablet 3 mg PO QHS PRN PRN Insomnia #0 05/21/24 Unknown Rx tabs menthol 0.44 %-zinc oxide 20.6 % 1 applic topical BID skin care #0 05/21/24 Unknown Rx topical ointment (Calmoseptine) grams sucralfate 1 gram tablet 1 g PO TID@0700,1100,1600 05/21/24 Unknown Rx indigestion #0 tabs oxycodone 5 mg tablet 2.5 mg (1/2 x 5 mg) PO Q8H PRN 07/02/24 Unknown Rx pain 3 days #10 tabs acetaminophen 325 mg tablet 650 mg PO Q6H PRN fever or pain 07/09/24 Unknown History diphenhydramine HCl 25 mg capsule 12.5 mg (1/2 x 25 mg) PO Q6H PRN 07/10/24 Unknown Rx (Banophen) PRN Itching #0 caps ertapenem 1 gram solution for 1 g IV .MWF 35 days #15 ea 07/10/24 Unknown Rx injection levetiracetam 500 mg tablet 500 mg PO BID 30 days #60 tabs 07/10/24 Unknown Rx insulin lispro 100 unit/mL 10 unit subcut TIDAC blood sugar 09/13/24 Unknown History subcutaneous pen (Humalog KwikPen (U-100) Insulin) ipratropium 0.5 mg-albuterol 3 mg 3 ml inhalation Q4H 09/13/24 Unknown History (2.5 mg base)/3 mL nebulization soln lorazepam 0.5 mg tablet 0.5 mg PO Q12H PRN anxiety 09/13/24 Unknown History ondansetron HCl 4 mg tablet 4 mg PO Q4H PRN PRN nausea and 09/13/24 Unknown History vomiting sevelamer carbonate 800 mg tablet 1,600 mg PO TID 09/13/24 Unknown History Allergy/AdvReac Type Severity Reaction Status Date / Time oxycodone (From OxyContin) Allergy sob Verified 09/13/24 15:36 Penicillins Allergy swelling Verified 09/13/24 15:36 in throat vancomycin Allergy Itching Verified 09/13/24 15:36 metronidazole AdvReac Nausea Verified 09/13/24 15:36 Family History Mother Diabetes CVA (cerebral vascular accident) Brother CAD (coronary artery disease) CABG X 3 Cancer testicular Diabetes Brother CAD (coronary artery disease) CABG X3 Diabetes Brother CAD (coronary artery disease) Stents Diabetes Sister CAD (coronary artery disease) CABG x 3 CVA (cerebral vascular accident) Diabetes Surgical History History of History of foot surgery History of bilateral carpal tunnel release History of rotator cuff surgery History of coronary artery stent placement (12/31/20) Social History household members: none number of children: 2 current occupational status: disabled Smoking Status: Never smoker alcohol intake: never substance use type: does not use caffeine: Yes Type: carbonated beverages Number of servings: 2 ROS ROS Narrative Review of Systems: Constitutional: Patient denies fever or chills. Eyes: Patient denies changes in vision or discharge from eyes. ENT: Patient denies runny nose, sore throat or ear pain. Resp: Patient denies SOB or cough. CV: Patient denies chest pain, palpitations or heart racing. GI: Patient admits to generalized cramping abdominal pain that has been intermittent and unchanged for weeks as per HPI. : Patient admits to making very little urine since starting HD with no dysuria or hematuria noted as per HPI. MSK: Patient denies arthralgias or myalgias. Skin: Patient has chronic ankle wounds that do not appear to be acutely infected. Psych: Patient denies symptoms of uncontrolled depression or anxiety. Neuro: Patient denies headache, paresthesias or focal neurologic deficits. Allergy: Patient denies lip swelling, tongue swelling or urticaria. Hematology: Patient denies easy bleeding or easy bruisability. Endocrinology: Patient denies polyuria, polydipsia or polyphagia. 14 point ROS otherwise negative except for positives noted above in HPI. Vital Signs Vital Signs Vital Signs: 09/13/24 15:31 09/13/24 15:34 09/13/24 15:35 Temperature 97.8 F 97.6 F L Temperature Source Oral Oral Pulse Rate 73 73 Respiratory Rate 18 18 Respiratory Effort Normal Non-Labored Respiratory Pattern Normal Blood Pressure 125/60 H 125/60 H Blood Pressure Mean 81 81 Pulse Ox 94 92 Oxygen Delivery Method Room Air Room Air Oxygen Flow Rate (L/min) 09/13/24 15:44 09/13/24 16:34 09/13/24 17:00 Temperature 97.5 F L 98.5 F Temperature Source Oral Oral Pulse Rate 72 74 Respiratory Rate 16 16 Respiratory Effort Respiratory Pattern Blood Pressure 127/112 H 125/72 H Blood Pressure Mean 117 89 Pulse Ox 94 91 90 Oxygen Delivery Method Room Air Room Air Room Air Oxygen Flow Rate (L/min) 09/13/24 17:57 09/13/24 19:00 Temperature 97.9 F 97.9 F Temperature Source Oral Oral Pulse Rate 74 70 Respiratory Rate 12 16 Respiratory Effort Respiratory Pattern Blood Pressure 139/78 H 138/75 H Blood Pressure Mean 98 96 Pulse Ox 98 95 Oxygen Delivery Method Nasal Cannula Nasal Cannula Oxygen Flow Rate (L/min) 2 2 Weight Weight: 169 lb 8.568 oz Body Mass Index (BMI) 30.0 Physical Exam Const alert, oriented x3, no apparent distress and average body habitus General Appearance: cooperative HEENT normocephalic, head/scalp atraumatic, hearing grossly normal bilaterally and moist oral mucous membranes Eyes PERRL and EOMs intact bilaterally Neck no lymphadenopathy and supple Resp normal respiratory effort, no retractions, no use of accessory muscles and clear to auscultation bilaterally Cardio regular rate and regular rhythm GI normal to inspection, nondistended, normoactive bowel sounds, soft to palpation, non-tender and non-distended Extremity Extremity Narrative: Patient has chronic wounds over ankles with surrounding erythema or TTP. Skin Skin Narrative: Patient has chronic wounds over ankles with surrounding erythema or TTP. Neuro oriented x3, CN's II-XII intact bilaterally, moves all extremities and no focal motor deficits Sensorium / Orientation: awake, alert, oriented to person, oriented to place and oriented to time Speech: speech normal Psych affect normal Results Medical Records Data Attestation: I reviewed the patient's medical records Lab / Micro Data Attestation: I reviewed the patient's lab results. 09/13/24 15:55 09/13/24 15:55 Labs: Laboratory Results - last 24 hr 09/13/24 15:55: WBC 8.9, RBC 3.35 L, Hgb 10.1 L, Hct 33.3 L, MCV 99.4 H, MCH 30.1, MCHC 30.3 L, RDW Std Deviation 62.4 H, RDW Coeff of Fior 17.0 H, Plt Count 458 H, MPV 9.2, Immature Gran % (Auto) 0.400, Neut % (Auto) 74.8 H, Lymph % (Auto) 12.7 L, [place] % (Auto) 9.0, Eos % (Auto) 1.6, Baso % (Auto) 1.5 H, Absolute Neuts (auto) 6.7, Absolute Lymphs (auto) 1.13, Nucleated RBC % 0, PT 14.6, INR 1.1, APTT 34.5, Sodium 135 L, Potassium 5.2 H, Chloride 100, Carbon Dioxide 30.0, Anion Gap 5, BUN 32 H, Creatinine 4.95 H, Estim Creat Clear Calc 12.02, Est GFR (MDRD) Af Amer 12 L, Est GFR (MDRD) Non-Af 10 L, BUN/Creatinine Ratio 6.5 L, Glucose 143 H, Lactic Acid 1.1, Calcium 9.2, Total Bilirubin 0.40, AST 24, ALT 22, Alkaline Phosphatase 251 H, Total Protein 8.8 H, Albumin 2.7 L, Globulin 6.1 H, Albumin/Globulin Ratio 0.4 L 09/13/24 16:18: Urine Color Yellow, Urine Clarity Clear, Urine pH 8.0, Ur Specific [place] 1.010, Urine Protein 500 H, Urine Glucose (UA) Normal, Urine Ketones Negative, Urine Occult Blood 10 H, Urine Nitrite Negative, Urine Bilirubin Negative, Urine Urobilinogen Normal, Ur Leukocyte Esterase 100 H, Urine RBC 0 SEEN, Urine WBC >100 SEEN, Ur Squamous Epith Cells 5-10 SEEN, Ur Transition Epith Cell 0-5 SEEN, Urine Bacteria 1+, Hyaline Casts 0-5 SEEN, Urine Mucus 0 SEEN Imaging Radiology Impression Chest X-Ray 09/13/24 16:25 IMPRESSION: Significantly improved aeration in the left lung base prior study. Mild atelectasis or infiltrate with small pleural effusion in the left lung base, also present previously. Electronically Signed: Alexis Rosales MD at 17:26 EST , Assessment & Plan Assessment/Plan (1) Urinary tract infection: QUALIFIERS: Urinary tract infection type: acute cystitis Hematuria presence: without hematuria Qualified Code(s): N30.00 - Acute cystitis without hematuria (2) VRE (vancomycin resistant enterococcus) culture positive: (3) Hyperkalemia: (4) ESRD (end stage renal disease) on dialysis: (5) Abdominal pain: QUALIFIERS: Abdominal location: generalized Qualified Code(s): R10.84 - Generalized abdominal pain PLAN: Plan 1. Latest urine culture revealed 10-50K CFU of VRE with a normal WBC of 8.9K present on admission but with a UA revealing evidence of Acute Cystitis; without hematuria - Admit to general medical floor. Continue IV daptomycin begun in the ER at appropriate dose for ESRD and monitor for improvement. Give Tylenol prn for [id number] (level 1-5/10) pain or fever. Continue oxycodone prn for severe (level 6-10/10) pain. Give probiotic plus vitamin C, vitamin D3 and zinc to help boost immunity and promote wound healing. Finally, we will consult Dr. Tello of infectious disease to see this patient on-rounds in the AM for further recommendations with help appreciated in advance. 2. Hyperkalemia of 5.2 mmol/L present on admission in the setting of known ESRD on HD; (M-W-F) complicating #1 - Patient will be treated with IV insulin and D10 with repeat potassium level pending in the AM to ensure improvement. Finally, we will consult nephrology to see this patient on-rounds in the AM so she can resume HD with help appreciated in advance. 3. Awnd-ax-cddsyewq intermittent cramping abdominal pain for the past few weeks unchanged from previous compounding #1 & #2 - Check KUB with abdomen soft and nontender with no signs of acute pathologic changes. 4. Essential hypertension; on amlodipine, carvedilol and hydralazine - Maintain home regimen as previous. 5. Hyperlipidemia; on atorvastatin - Resume statin as before. 6. Hypothyroidism; on levothyroxine - Continue levothyroxine and check TSH this admission. 7. Obesity; with BMI of 30 this admission - Weight loss will be recommended. This complicates her case and may hamper recovery. 8. DM-2; of unknown control on lispro insulin 10 U TID AC plus diabetic neuropathy; on gabapentin with Charcot deformity of both feet, history of DFU with osteomyelitis of the Right foot with necrosis of bone and history of DFU of the Left foot; with history of acquired cavovarus deformity of both feet with shortened Achilles tendons and subsequent bilateral amputations of multiple toes on both feet - Resume current insulin regimen and check HgbA1c to objectively assess quality of diabetic control in light of #1. Restart gabapentin at same dose and schedule. Give ADA/renal diet. 9. History of MRSA bacteremia - Noted. 10. CAD; s/p NSTEMI x 2 with stents x 3 in (2017) and (2020) on prn SL NTG with history of ischemic cardiomyopathy; with LVEF ~45% - Stable with no active signs of active disease. Resume prn SL NTG should patient develop angina. 11. History of TIA - Noted. 12. History of seizure disorder ; on levetiracetam - Continue levetiracetam as before. 13. History of carotid artery stenosis - Noted. 14. History of COVID-19 (2020) - Noted. 15. Listed allergy to PCN (throat swelling) - Noted. 16. Listed allergy to vancomycin (itching) - Noted. 17. Listed allergy to metronidazole (nausea) - Noted. 18. Listed allergy to oxycodone (SOB) - Noted with patient currently on prn oxycodone with no adverse reaction noted. 19. RLS - Stable. 20. Depression with anxiety; on paroxetine and prn lorazepam BID - Maintain current regimen. 21. GERD; on pantoprazole BID and sucralfate TID - Continue as before. 22. History of bilateral CTS; s/p release - Noted. 23. History of Right rotator cuff surgery - Noted. 24. Remote history of - Noted for the sake of completeness. 25. OA; with history of lumbar radiculopathy and chronic pain or prn oxycodone - Current regimen to continue as previous. 26. Chronic anemia - Stable with hemoglobin of 10.1 g/dL present on admission (baseline hgb ~8-10 g/dL). 27. Chronic debility with adult [id number] and history of medical noncompliance - Noted. PT/OT and Case Management to consult and treat on-rounds in the AM with help appreciated in advance. 28. DVT prophylaxis - Heparin 5,000 U sq. BID plus SCD's. Total time: Approximately (but not less than) 55 minutes. Charges/Coding Visit Charges Inpatient E&M: 11870 Init Hosp L2
[2024-09-13] MEDS: DAPTOMYCIN IV (19:52)
[2024-09-13] MEDS: NORMAL SALINE 0.9% IV (19:52)
[2024-09-13] MEDS: levETIRAcetam 500 MG Tablet PO (23:34)
[2024-09-13] MEDS: Heparin Injection (Vial) 5,000 UNIT/ML VIAL 5000 UNIT SC (23:34)
[2024-09-13] MEDS: hydrALAZINE 50 MG Tablet PO (23:35)
[2024-09-13] MEDS: Ascorbic Acid 500 MG Tablet PO (23:35)
[2024-09-13] MEDS: Menthol/Lanolin/Calamine/Znox 113 GM Tube 1 APPLIC TOPICAL (23:35)
[2024-09-13] MEDS: Carvedilol 25 MG Tablet PO (23:35)
[2024-09-13] MEDS: Lactobacillis Acidophilus 1 CAP PO (23:35)
[2024-09-14] VITALS (16 sets, daily range): BP systolic 104–234; BP diastolic 45–94; PULSE 67–88; RESP 14–18; TEMP 36.6–37.1; O2SAT 94–98; BMI 27.2; BMI 26.5
--- NOTE | 2024-09-14 05:00 | RAD_ITS ---
EXAM: XR ABDOMEN, 1 VIEW CLINICAL INDICATION: Abdominal Pain. TECHNIQUE: Frontal supine view of the abdomen/pelvis. COMPARISON: No relevant prior studies available. FINDINGS: LOWER THORAX: No acute pathology. GASTROINTESTINAL TRACT: Moderate amount of stool in the colon. Non-obstructive. No bowel or stomach distention. ORGANS: Unremarkable as visualized. No organomegaly. No abnormal calcifications. BONES/JOINTS: Surgical fusion of the thoracolumbar spine. SOFT TISSUES: No acute pathology. RAD/Abdomen Single View (Portable) IMPRESSION: Moderate amount of stool in the colon. Electronically Signed: Dallas Thakur MD at 6:01 EST ,
[2024-09-14 06:30] LABS: Absolute Lymphocyte Count 1.17 X10^3/uL (0.83-4.51); Absolute Neutrophil Count 6.7 X10^3/uL (2.0-7.7); Basophil# 0.09 X10^3/uL; Eosinophil# 0.15 X10^3/uL; Eosinophils% 1.7 % (0-5); Hematocrit 28.9 % (37-47); Hemoglobin 8.8 g/dL (12.0-15.0); Lymphocyte # 1.17 X10^3/ul (0.83-4.51); Lymphocyte % 13.3 % (19-41); Mean Corp Hgb Conc 30.4 g/dL (32-36); Mean Corpuscular Hgb 30.7 pg (27.0-32.0); Mean Corpuscular Volume 100.7 fL (81-99); Mean Platelet Vol. 9.8 fl (6.2-12.0); Monocyte# 0.67 X10^3/uL; Monocyte% 7.6 % (0-10); NRBC Flagged by Analyzer 0 % (0-5); Neutrophil # 6.67 X10^3/uL (2.7-7.7); Neutrophil % 75.8 % (47-70); Platelet Count 427 K/mm3 (150-450); RBC Distribution Width CV 16.9 % (11.6-14.6); Red Blood Count 2.87 M/mm3 (4.2-5.4); White Blood Count 8.8 K/mm3 (4.4-11.0)
[2024-09-14] MEDS: Sucralfate 1 GM Tablet PO ×2 (06:31→12:20)
[2024-09-14] MEDS: Levothyroxine 25 MCG TABLET PO (06:31)
[2024-09-14 06:59] LABS: Bedside Glucose 151 mg/dL (74-106)
[2024-09-14 07:08] LABS: ALB/GLOB Ratio 0.4 RATIO (0.9-2.4); AST(SGOT) 20 U/L (15-37); Alanine Aminotransfer ALT/SGPT 14 U/L (13-56); Albumin, Serum 2.2 g/dL (3.2-5.0); Alkaline Phosphatase 202 U/L (45-117); Anion Gap 5 (5-15); BUN 38 mg/dL (7-18); BUN/Creat Ratio 6.9 RATIO (10-20); Calcium,Total 8.6 mg/dL (8.5-10.1); Chloride 102 mmol/L (98-107); Creatinine, Serum 5.47 mg/dL (0.55-1.02); EST Glomerular Filtration Rate 9 mL/min (>60); Est Glom Filt Rate - Afr Amer 10 mL/min (>60); Estimated Creatinine Clearance 11.59 ml/min; Glucose 146 mg/dL (74-106); Magnesium 1.8 mg/dL (1.6-2.6); Phosphorus 3.1 mg/dL (2.5-4.9); Potassium 5.3 mmol/L (3.5-5.1); Protein, Total 7.2 g/dL (6.4-8.2); Sodium Level 136 mmol/L (136-145)
--- NOTE | 2024-09-14 07:12 | PN.HOSP_ITS ---
Reason for Visit Reason for Visit: Diagnoses Hyperkalemia (09/13/24) End stage renal disease (09/13/24) Acute cystitis without hematuria (09/13/24) Urinary tract infection, site not specified (09/13/24) Generalized abdominal pain (09/13/24) Carrier of other specified bacterial diseases (09/13/24) Dependence on renal dialysis (09/13/24) Subjective Subjective Patient is a 59-year-old lady with multiple comorbidities sent from her ECF to the ED after urine cultures came back positive for VRE Objective Data Objective Data Vital Signs: Vital Signs Temp Pulse Resp BP Pulse Ox O2 Del Method O2 Flow Rate 98.4 F 72 15 113/45 L 95 Nasal Cannula 2 09/14/24 02:24 09/14/24 06:32 09/14/24 02:24 09/14/24 06:32 09/14/24 02:24 09/14/24 02:24 09/14/24 02:24 Oxygen Flow Rate (L/min) 2 Oxygen Delivery Method Nasal Cannula Weight: 76.839 kg Body Mass Index (BMI) 27.3 Intake & Output: Intake and Output for Last 24 Hours 09/12/24 09/13/24 09/14/24 23:59 23:59 23:59 Intake Total 59 / 59 200 / 200 Output Total 150 / 150 Balance 59 / 59 50 / 50 Lab / Micro Data 09/14/24 04:59 09/14/24 04:59 Labs: Laboratory Results - last 24 hr 09/13/24 15:55: WBC 8.9, RBC 3.35 L, Hgb 10.1 L, Hct 33.3 L, MCV 99.4 H, MCH 30.1, MCHC 30.3 L, RDW Std Deviation 62.4 H, RDW Coeff of Fior 17.0 H, Plt Count 458 H, MPV 9.2, Immature Gran % (Auto) 0.400, Neut % (Auto) 74.8 H, Lymph % (Auto) 12.7 L, Sunflower % (Auto) 9.0, Eos % (Auto) 1.6, Baso % (Auto) 1.5 H, Absolute Neuts (auto) 6.7, Absolute Lymphs (auto) 1.13, Nucleated RBC % 0, PT 14.6, INR 1.1, APTT 34.5, Sodium 135 L, Potassium 5.2 H, Chloride 100, Carbon Dioxide 30.0, Anion Gap 5, BUN 32 H, Creatinine 4.95 H, Estim Creat Clear Calc 12.02, Est GFR (MDRD) Af Amer 12 L, Est GFR (MDRD) Non-Af 10 L, BUN/Creatinine Ratio 6.5 L, Glucose 143 H, Lactic Acid 1.1, Calcium 9.2, Total Bilirubin 0.40, AST 24, ALT 22, Alkaline Phosphatase 251 H, Total Protein 8.8 H, Albumin 2.7 L, Globulin 6.1 H, Albumin/Globulin Ratio 0.4 L 09/13/24 16:18: Urine Color Yellow, Urine Clarity Clear, Urine pH 8.0, Ur Specific [place] 1.010, Urine Protein 500 H, Urine Glucose (UA) Normal, Urine Ketones Negative, Urine Occult Blood 10 H, Urine Nitrite Negative, Urine Bilirubin Negative, Urine Urobilinogen Normal, Ur Leukocyte Esterase 100 H, Urine RBC 0 SEEN, Urine WBC >100 SEEN, Ur Squamous Epith Cells 5-10 SEEN, Ur Transition Epith Cell 0-5 SEEN, Urine Bacteria 1+, Hyaline Casts 0-5 SEEN, Urine Mucus 0 SEEN 09/14/24 04:59: WBC 8.8, RBC 2.87 L, Hgb 8.8 L, Hct 28.9 L, MCV 100.7 H, MCH 30.7, MCHC 30.4 L, RDW Std Deviation 63.0 H, RDW Coeff of Fior 16.9 H, Plt Count 427, MPV 9.8, Immature Gran % (Auto) 0.600, Neut % (Auto) 75.8 H, Lymph % (Auto) 13.3 L, Sunflower % (Auto) 7.6, Eos % (Auto) 1.7, Baso % (Auto) 1.0, Absolute Neuts (auto) 6.7, Absolute Lymphs (auto) 1.17, Nucleated RBC % 0, Sodium 136, P otassium 5.3 H, Chloride 102, Carbon Dioxide 29.0, Anion Gap 5, BUN 38 H, C reatinine 5.47 H, Estim Creat Clear Calc 11.59, Est GFR (MDRD) Af Amer 10 L, Est GFR (MDRD) Non-Af 9 L, BUN/Creatinine Ratio 6.9 L, Glucose 146 H, Calcium 8.6, Phosphorus 3.1, Magnesium 1.8, Total Bilirubin 0.30, AST 20, ALT 14, Alkaline Phosphatase 202 H, Total Protein 7.2, Albumin 2.2 L, Globulin 5.0 H, A lbumin/Globulin Ratio 0.4 L, TSH 2.490 09/14/24 06:38: POC Glucose 151 H Radiography Diagnostic Testing: Radiology Impression Chest X-Ray 09/13/24 16:25 IMPRESSION: Significantly improved aeration in the left lung base prior study. Mild atelectasis or infiltrate with small pleural effusion in the left lung base, also present previously. Electronically Signed: Alexis Rosales MD at 17:26 EST , KUB X-Ray 09/14/24 05:00 IMPRESSION: Moderate amount of stool in the colon. Electronically Signed: Dallas Thakur MD at 6:01 EST , Physical Exam Narrative GENERAL: Patient is cooperative HEENT: Atraumatic; normocephalic EYES; Anicteric, Normal Conjunctiva NECK; supple, normal thyroid, RESPIRATORY: Diminished to auscultation CARDIOVASCULAR: Regular S1 S2, GI: soft, normoactive bowel sounds, : No Renal angle tenderness; EXTREMITIES: Right lower extremity mities in surgical dressing MUSCULOSKELETAL: no muscle wasting NEURO: Awake; no lateralizing signs. SKIN: No Rash PSYCH; Flat affect Assessment & Plan Assessment/Plan (1) Urinary tract infection: QUALIFIERS: Hematuria presence: without hematuria Urinary tract infection type: acute cystitis Qualified Code(s): N30.00 - Acute cystitis without hematuria (2) VRE (vancomycin resistant enterococcus) culture positive: (3) Hyperkalemia: (4) ESRD (end stage renal disease) on dialysis: (5) Abdominal pain: QUALIFIERS: Abdominal location: generalized Qualified Code(s): R 10.84 - Generalized abdominal pain PLAN: Plan Patient is a 59-year-old lady with multiple comorbidities sent from her ECF to the ED after urine cultures came back positive for VRE 1. Acute cystitis with VRE ?Patient had recently been discharged on daptomycin and ertapenem for diabetic foot infection. The daptomycin was continued on admission consultation placed to ID 2. End-stage renal disease ? On hemodialysis consult placed to nephrology patient dialysis days on Wednesdays and Fridays 3.? Anemia - Secondary to chronic disorder monitoring H&H and transfuse if patient becomes symptomatic or hemoglobin falls below? 7 4. Recurrent diabetic foot infection ? Patient was discharged on ertapenem as well as daptomycin has undergone previous corrective surgery for neuropathic ulcerations by podiatry 5.? Diabetes mellitus type II ?With complications including Charcot foot as well as diabetic foot ulcers.? Patient is on long acting insulin, Accu-Cheks a.c. and at bedtime and covered with sliding scale insulin 6.? CAD; s/p NSTEMI x 2 with stents x 3 in (2017) and (2020) on prn SL NTG with history of ischemic cardiomyopathy; with LVEF ~45% -plan is to continue with guideline directed medical therapy 7.? Dyslipidemia -Patient is on statin therapy, continued at home dose 8.? GERD ? On PPI 9.? Chronic back pain ?Patient is managed with outpatient epidural steroid injection 10. Hypothyroidism - Patient is on levothyroxine home dose continued 11.? Seizure disorder ? Patient is on Keppra 12 physical deconditioning - Requested for PT OT eval and transition social worker to assist with discharge planning 13. Depression with anxiety ? Did continue patient antidepressants 14. DVT prophylaxis - Heparin SC Time spent in the patient's overall evaluation,decision-making process, review of diagnostic data, adjustment of management, discussion with other providers, nursing nursing and ancillary staff involved in patient's care documentation, 50 minutes Advance planning; did discuss with the patient regarding advanced directives as well as CODE STATUS. Did explain the various scenarios involved ( FULL CODE, DNR CCA, DNR CCA with no intubation, and DNR CC and what each meant) patient elected to be full code with CPR intubation if needed. Order was placed. Time spent on discussion 16 minutes. Charges/Coding Multi Select Codes Visit Charges Visit Charges: 06560 Init Hosp L3 Hospitalists' Procedures Procedures: 27732 Advncd Care Plan 30 Min
--- NOTE | 2024-09-14 08:10 | WOUNDNOTE ---
wound photo: right lateral foot
--- NOTE | 2024-09-14 08:10 | WOUNDNOTE ---
wound photo: right foot
--- NOTE | 2024-09-14 08:11 | WOUNDNOTE ---
wound photo: left lower leg
[2024-09-14] MEDS: 0.9% Saline Lock 10 ML Syringe IV ×2 (08:34→12:03)
[2024-09-14] MEDS: PureFlow B 2K Dialysis Soln 1 BAG 6 BAG PF (08:34)
[2024-09-14] MEDS: 0.9% Normal Saline 1,000 ML IV.SOLN. 1000 ML OPERA.SITE (08:34)
[2024-09-14 10:08] LABS: M R Staph aureus DNA By PCR Negative (Negative); Probe Check PASS; Specimen Processing Control PASS; Staph aureus DNA By PCR NEGATIVE (Negative)
--- NOTE | 2024-09-14 10:28 | CASEMGMT ---
Received tc from Ella who is pt [facility] CM. She stated pt has had multiple ER admits, hospitalization, SNF stays and has many SDOH. States pt currently has no heat at home. Confirmed pt was in [facility] prior to coming into [facility] yesterday. She requests that pt dc summary be faxed to her at [phone]. She states her cell phone is [phone]. Updated SW.
--- NOTE | 2024-09-14 10:43 | CASEMGMT ---
Discharge Planning Updates sent to [facility] with note that pt may return over the weekend. Requested wknd phone/fax for report. Awaiting response. Rekha Moore DC Planning Asst.
[2024-09-14 12:01] LABS: Bedside Glucose 88 mg/dL (74-106)
[2024-09-14] MEDS: Heparin 10,000 UNITS/10 ML Vial IV (12:03)
[2024-09-14] MEDS: Ascorbic Acid 500 MG Tablet PO ×2 (12:19→23:08)
[2024-09-14] MEDS: Aspirin 81 MG TAB.CHEW PO (12:19)
[2024-09-14] MEDS: Zinc Sulfate 50 mg zinc (220 mg) ORAL capsule PO (12:19)
[2024-09-14] MEDS: Lactobacillis Acidophilus 1 CAP PO ×4 (12:19→23:08)
[2024-09-14] MEDS: Calcium Acetate 667 MG Capsule PO ×3 (12:19→16:55)
[2024-09-14] MEDS: SEVELAMER CARBONATE 800 MG TABLET 1600 MG PO ×2 (12:19→16:54)
[2024-09-14] MEDS: Folic Acid 1 MG Tablet PO (12:20)
[2024-09-14] MEDS: Heparin Injection (Vial) 5,000 UNIT/ML VIAL 5000 UNIT SC ×2 (12:20→23:07)
[2024-09-14] MEDS: amLODIPine 5 MG Tablet PO (12:20)
[2024-09-14] MEDS: Pantoprazole Sodium 40 MG Tablet PO ×2 (12:20→16:54)
[2024-09-14] MEDS: Calcitriol 0.25 MCG Capsule 0.5 MCG PO (12:21)
[2024-09-14] MEDS: Paroxetine 20 MG Tablet PO (12:21)
[2024-09-14] MEDS: Carvedilol 25 MG Tablet PO ×2 (12:22→16:54)
[2024-09-14] MEDS: levETIRAcetam 500 MG Tablet PO ×2 (12:26→23:08)
--- NOTE | 2024-09-14 12:38 | PCM.CONS.GEN ---
Assessment & Plan Assessment/Plan (1) ESRD (end stage renal disease) on dialysis: (2) VRE (vancomycin resistant enterococcus) culture positive: PLAN: Reviewed [facility] records. Recent admit with strep bacteremia, R ankle infection, and cdiff. On dapto for VRE in ucx, cxs here are pending. if develops diarrhea, would start po vanc. Will follow, thank you. HPI Consult Data Date of Consult: 09/14/24 HPI Narrative Reason for Consultation: uti HPI Narrative: DIONY ROCHA, is a 59 F with ESRD, recent admit to [facility] with R ankle infection complicated by GBS bacteremia and cdiff; discharged 09/04 with two more days oral vanc. Now admitted here 09/13 with severe days increased abd pain, dysuria, and recent ucx at [facility] with VRE. Admitted on dapto, not feeling that much better today. Full ROS performed and neg except as noted above. [facility] Medical History ESRD (end stage renal disease) on dialysis Non-pressure chronic ulcer of right ankle with necrosis of muscle Non-pressure chronic 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 layer exposed Non-pressure chronic ulcer of other part of left foot with fat layer exposed Non-pressure chronic ulcer of left ankle with necrosis of muscle Adverse effect of synthetic cannabinoids, initial encounter Avery coma scale score 13-15, at arrival to emergency department Acute alteration in mental status Short Achilles tendon (acquired), left ankle Short Achilles tendon (acquired), right ankle Acquired cavovarus deformity of left foot Acquired cavovarus deformity of right foot Type 2 diabetes mellitus with diabetic polyneuropathy Adult failure to thrive Debility Charcot's joint, right ankle and foot Charcot's joint, left ankle and foot Drowsiness Mental status, decreased Carotid artery stenosis MSSA bacteremia ESRD on hemodialysis Osteomyelitis Anemia in chronic illness Type 2 diabetes mellitus Foot osteomyelitis, left Chronic renal disease, stage 4, severely decreased glomerular filtration rate (GFR) between 15-29 mL/min/1.73 square meter Acute on chronic anemia Chronic ulcer of right foot with necrosis of bone Chronic kidney disease, stage 4 (severe) Diabetes mellitus with diabetic polyneuropathy Diabetic foot ulcers Chronic kidney disease, stage 3b Cellulitis Acute lumbar radiculopathy Essential hypertension Adult failure to thrive COVID-19 (08/28/21) Chronic ulcer of right leg with fat layer exposed Ulcer of left foot with fat layer exposed Chronic ulcer of right foot with fat layer exposed Hyperparathyroidism, secondary renal Iron deficiency anemia Bilateral edema of lower extremity Chronic foot pain Charcot's joint of right foot Diabetes Non-smoker Myocardial infarct Hypertension TIA (transient ischemic attack) Amputation foot, bilat 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 Ulcer of left foot with necrosis of muscle Ulcer of left foot with muscle involvement without evidence of necrosis Anxiety and depression Diabetic infection of left foot Delayed wound healing Non-compliance Diabetic polyneuropathy Ischemic cardiomyopathy Obesity (BMI 30.0-34.9) Acquired varus deformity of left foot Acquired varus deformity of right foot Atherosclerosis of [place] coronary artery of [place] heart without angina pectoris Hemoglobin A1c greater than 9.0% NSTEMI (non-ST elevated myocardial infarction) (09/20/18) GERD (gastroesophageal reflux disease) HLD (hyperlipidemia) Back pain, chronic RLS (restless legs syndrome) Home Medications ?Medication ?Instructions ?Recorded ?Last Taken ?Type paroxetine HCl 20 mg tablet 20 mg PO DAILY DEPRESSION 07/07/21 04/07/22 History sennosides 8.6 mg-docusate sodium 2 tab PO BID PRN PRN Constipation 04/24/22 Unknown Rx 50 mg tablet (Stool #0 tabs Softener-Stimulant Laxative) ascorbic acid (vitamin C) 500 mg 500 mg PO BID supplement 05/05/22 Unknown History tablet (Vitamin C) pantoprazole 40 mg tablet,delayed 40 mg PO BIDCM GERD 07/19/22 Unknown History release gabapentin 100 mg capsule 100 mg PO .COMPLEX PRN pain 11/26/23 Unknown History amlodipine 5 mg tablet 5 mg PO DAILY bp 12/16/23 Unknown History calcitriol 0.5 mcg capsule 0.5 mcg PO .COMPLEX on dialysis 12/16/23 07/09/24 History calcium acetate(phosphat bind) 667 676 mg PO TID is on dialysis 12/16/23 Unknown History mg capsule folic acid 800 mcg tablet 0.8 mg PO DAILY supplement 12/16/23 Unknown History levothyroxine 25 mcg tablet 25 mcg PO DAILY thyroid 12/16/23 Unknown History nitroglycerin 0.4 mg sublingual 0.4 mg sublingual Q5M chest pain 12/16/23 Unknown History tablet (Nitrostat) aspirin 81 mg capsule 81 mg PO DAILY blood thinner #30 03/18/24 Unknown Rx caps atorvastatin 40 mg tablet 40 mg PO DAILY cholesterol 03/18/24 06/26/24 History carvedilol 25 mg tablet 25 mg PO BID blood pressure 03/18/24 Unknown History hydralazine 50 mg tablet 50 mg PO TID bp #0 tabs 05/21/24 Unknown Rx melatonin 3 mg tablet 3 mg PO QHS PRN PRN Insomnia #0 05/21/24 Unknown Rx tabs menthol 0.44 %-zinc oxide 20.6 % 1 applic topical BID skin care #0 05/21/24 Unknown Rx topical ointment (Calmoseptine) grams sucralfate 1 gram tablet 1 g PO TID@0700,1100,1600 05/21/24 Unknown Rx indigestion #0 tabs oxycodone 5 mg tablet 2.5 mg (1/2 x 5 mg) PO Q8H PRN 07/02/24 Unknown Rx pain 3 days #10 tabs acetaminophen 325 mg tablet 650 mg PO Q6H PRN fever or pain 07/09/24 Unknown History diphenhydramine HCl 25 mg capsule 12.5 mg (1/2 x 25 mg) PO Q6H PRN 07/10/24 Unknown Rx (Banophen) PRN Itching #0 caps ertapenem 1 gram solution for 1 g IV .MWF 35 days #15 ea 07/10/24 Unknown Rx injection levetiracetam 500 mg tablet 500 mg PO BID 30 days #60 tabs 07/10/24 Unknown Rx insulin lispro 100 unit/mL 10 unit subcut TIDAC blood sugar 09/13/24 Unknown History subcutaneous pen (Humalog KwikPen (U-100) Insulin) ipratropium 0.5 mg-albuterol 3 mg 3 ml inhalation Q4H 09/13/24 Unknown History (2.5 mg base)/3 mL nebulization soln lorazepam 0.5 mg tablet 0.5 mg PO Q12H PRN anxiety 09/13/24 Unknown History ondansetron HCl 4 mg tablet 4 mg PO Q4H PRN PRN nausea and 09/13/24 Unknown History vomiting sevelamer carbonate 800 mg tablet 1,600 mg PO TID 09/13/24 Unknown History Allergy/AdvReac Type Severity Reaction Status Date / Time oxycodone (From OxyContin) Allergy sob Verified 09/13/24 15:36 Penicillins Allergy swelling Verified 09/13/24 15:36 in throat vancomycin Allergy Itching Verified 09/13/24 15:36 metronidazole AdvReac Nausea Verified 09/13/24 15:36 Family History Mother Diabetes CVA (cerebral vascular accident) Brother CAD (coronary artery disease) CABG X 3 Cancer testicular Diabetes Brother CAD (coronary artery disease) CABG X3 Diabetes Brother CAD (coronary artery disease) Stents Diabetes Sister CAD (coronary artery disease) CABG x 3 CVA (cerebral vascular accident) Diabetes Surgical History History of History of foot surgery History of bilateral carpal tunnel release History of rotator cuff surgery History of coronary artery stent placement (12/31/20) Social History household members: none number of children: 2 current occupational status: disabled Smoking Status: Never smoker alcohol intake: never substance use type: does not use caffeine: Yes Type: carbonated beverages Number of servings: 2 Physical Exam Const alert, oriented x3 and no apparent distress General Appearance: cooperative HEENT normocephalic and head/scalp atraumatic Eyes PERRL and EOMs intact bilaterally Neck supple and No nodes Resp normal air movement and clear to auscultation bilaterally Cardio regular rate and regular rhythm GI soft to palpation, non-tender and non-distended Extremity General Extremity: edema Skin Skin Narrative: R foot/ankle wrapped Neuro CN's II-XII intact bilaterally Lab / Micro Data Attestation: I reviewed the patient's lab results. 09/14/24 04:59 09/14/24 04:59 Labs: Laboratory Results - last 24 hr 09/13/24 15:55: WBC 8.9, RBC 3.35 L, Hgb 10.1 L, Hct 33.3 L, MCV 99.4 H, MCH 30.1, MCHC 30.3 L, RDW Std Deviation 62.4 H, RDW Coeff of Fior 17.0 H, Plt Count 458 H, MPV 9.2, Immature Gran % (Auto) 0.400, Neut % (Auto) 74.8 H, Lymph % (Auto) 12.7 L, [place] % (Auto) 9.0, Eos % (Auto) 1.6, Baso % (Auto) 1.5 H, Absolute Neuts (auto) 6.7, Absolute Lymphs (auto) 1.13, Nucleated RBC % 0, PT 14.6, INR 1.1, APTT 34.5, Sodium 135 L, Potassium 5.2 H, Chloride 100, Carbon Dioxide 30.0, Anion Gap 5, BUN 32 H, Creatinine 4.95 H, Estim Creat Clear Calc 12.02, Est GFR (MDRD) Af Amer 12 L, Est GFR (MDRD) Non-Af 10 L, BUN/Creatinine Ratio 6.5 L, Glucose 143 H, Lactic Acid 1.1, Calcium 9.2, Total Bilirubin 0.40, AST 24, ALT 22, Alkaline Phosphatase 251 H, Total Protein 8.8 H, Albumin 2.7 L, Globulin 6.1 H, Albumin/Globulin Ratio 0.4 L 09/13/24 16:18: Urine Color Yellow, Urine Clarity Clear, Urine pH 8.0, Ur Specific [place] 1.010, Urine Protein 500 H, Urine Glucose (UA) Normal, Urine Ketones Negative, Urine Occult Blood 10 H, Urine Nitrite Negative, Urine Bilirubin Negative, Urine Urobilinogen Normal, Ur Leukocyte Esterase 100 H, Urine RBC 0 SEEN, Urine WBC >100 SEEN, Ur Squamous Epith Cells 5-10 SEEN, Ur Transition Epith Cell 0-5 SEEN, Urine Bacteria 1+, Hyaline Casts 0-5 SEEN, Urine Mucus 0 SEEN 09/14/24 04:59: WBC 8.8, RBC 2.87 L, Hgb 8.8 L, Hct 28.9 L, MCV 100.7 H, MCH 30.7, MCHC 30.4 L, RDW Std Deviation 63.0 H, RDW Coeff of [place] 16.9 H, Plt Count 427, MPV 9.8, Immature Gran % (Auto) 0.600, Neut % (Auto) 75.8 H, Lymph % (Auto) 13.3 L, [place] % (Auto) 7.6, Eos % (Auto) 1.7, Baso % (Auto) 1.0, Absolute Neuts (auto) 6.7, Absolute Lymphs (auto) 1.17, Nucleated RBC % 0, Sodium 136, Potassium 5.3 H, Chloride 102, Carbon Dioxide 29.0, Anion Gap 5, BUN 38 H, Creatinine 5.47 H, Estim Creat Clear Calc 11.59, Est GFR (MDRD) Af Amer 10 L, Est GFR (MDRD) Non-Af 9 L, BUN/Creatinine Ratio 6.9 L, Glucose 146 H, Calcium 8.6, Phosphorus 3.1, Magnesium 1.8, Total Bilirubin 0.30, AST 20, ALT 14, Alkaline Phosphatase 202 H, Total Protein 7.2, Albumin 2.2 L, Globulin 5.0 H, Albumin/Globulin Ratio 0.4 L, TSH 2.490 09/14/24 06:38: POC Glucose 151 H 09/14/24 07:50: S.aureus Protein A PCR NEGATIVE, MRSA (PCR) Negative 09/14/24 11:43: POC Glucose 88 Micro: Microbiology 09/13/24 16:18 Urine, Clean Catch Urine Culture - Preliminary Culture exhibits no growth. Imaging Radiology Impression Chest X-Ray 09/13/24 16:25 IMPRESSION: Significantly improved aeration in the left lung base prior study. Mild atelectasis or infiltrate with small pleural effusion in the left lung base, also present previously. Electronically Signed: Alexis Rosales MD at 17:26 EST , KUB X-Ray 09/14/24 05:00 IMPRESSION: Moderate amount of stool in the colon. Electronically Signed: Dallas Thakur MD at 6:01 EST ,
--- NOTE | 2024-09-14 13:27 | CASEMGMT ---
Social Work Pt admitted from [facility]. SW met with pt who confirms plan to return at time of discharge. Pt to remain hospitalized through the weekend waiting on cultures and to determine antibiotics.? [facility] is able to accept pt back. If PO antibiotics, pt can return to [facility] care.? If IV antibiotics are needed, pt will need a precert to return at a skilled level of care. Plan: Return to [facility], level of care dependent on Antibiotic needs Zacarias KHAN
--- NOTE | 2024-09-14 13:40 | CASEMGMT ---
Social Work - Advance Directive Validation SW met with pt to discuss advance directives.? Pt confirms she has completed a health care POA naming her daughter Trisha Doulgass.? Pt states she has not completed a living will. Pt notified that documents are not on file at [facility]. Phone call to Trisha attempted to request document be brought in with no answer.? ERIN Masters
[2024-09-14] MEDS: hydrALAZINE 50 MG Tablet PO ×2 (14:34→23:08)
--- NOTE | 2024-09-14 14:36 | PCM.CONS.R ---
Assessment & Plan Assessment/Plan (1) ESRD (end stage renal disease) on dialysis: PLAN: End-stage renal disease secondary to diabetic nephropathy, hemodialysis dependent. Patient came over last night with VRE in the urine. She has been successfully dialyzed this morning with no issues. Will continue dialyzing her Tuesday schedule (2) Hyperkalemia: PLAN: Lab has been obtained prior to dialysis and that should have been corrected by the treatments she just had this morning. HPI Consult Data Date of Consult: 09/14/24 HPI Narrative Reason for Consultation: ESRD HPI Narrative: This is an 59-year-old female with past medical history significant for ESRD on hemodialysis Tuesday at [facility] [place] followed by Dr. Flynn, who came over last night after she was found to have VRE in her urine. Patient is asymptomatic. Patient has been dialyzed earlier this morning while in the hospital. For access she has got a left sided tunneled hemodialysis catheter. No issues with the catheter. She is on oxygen. No appetite. [facility] Medical History ESRD (end stage renal disease) on dialysis Non-pressure chronic ulcer of right ankle with necrosis of muscle Non-pressure chronic 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 layer exposed Non-pressure chronic ulcer of other part of left foot with fat layer exposed Non-pressure chronic ulcer of left ankle with necrosis of muscle Adverse effect of synthetic cannabinoids, initial encounter Avery coma scale score 13-15, at arrival to emergency department Acute alteration in mental status Short Achilles tendon (acquired), left ankle Short Achilles tendon (acquired), right ankle Acquired cavovarus deformity of left foot Acquired cavovarus deformity of right foot Type 2 diabetes mellitus with diabetic polyneuropathy Adult failure to thrive Debility Charcot's joint, right ankle and foot Charcot's joint, left ankle and foot Drowsiness Mental status, decreased Carotid artery stenosis MSSA bacteremia ESRD on hemodialysis Osteomyelitis Anemia in chronic illness Type 2 diabetes mellitus Foot osteomyelitis, left Chronic renal disease, stage 4, severely decreased glomerular filtration rate (GFR) between 15-29 mL/min/1.73 square meter Acute on chronic anemia Chronic ulcer of right foot with necrosis of bone Chronic kidney disease, stage 4 (severe) Diabetes mellitus with diabetic polyneuropathy Diabetic foot ulcers Chronic kidney disease, stage 3b Cellulitis Acute lumbar radiculopathy Essential hypertension Adult failure to thrive COVID-19 (08/28/21) Chronic ulcer of right leg with fat layer exposed Ulcer of left foot with fat layer exposed Chronic ulcer of right foot with fat layer exposed Hyperparathyroidism, secondary renal Iron deficiency anemia Bilateral edema of lower extremity Chronic foot pain Charcot's joint of right foot Diabetes Non-smoker Myocardial infarct Hypertension TIA (transient ischemic attack) Amputation foot, bilat 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 Ulcer of left foot with necrosis of muscle Ulcer of left foot with muscle involvement without evidence of necrosis Anxiety and depression Diabetic infection of left foot Delayed wound healing Non-compliance Diabetic polyneuropathy Ischemic cardiomyopathy Obesity (BMI 30.0-34.9) Acquired varus deformity of left foot Acquired varus deformity of right foot Atherosclerosis of [place] coronary artery of [place] heart without angina pectoris Hemoglobin A1c greater than 9.0% NSTEMI (non-ST elevated myocardial infarction) (09/20/18) GERD (gastroesophageal reflux disease) HLD (hyperlipidemia) Back pain, chronic RLS (restless legs syndrome) Home Medications ?Medication ?Instructions ?Recorded ?Last Taken ?Type paroxetine HCl 20 mg tablet 20 mg PO DAILY DEPRESSION 07/07/21 04/07/22 History sennosides 8.6 mg-docusate sodium 2 tab PO BID PRN PRN Constipation 04/24/22 Unknown Rx 50 mg tablet (Stool #0 tabs Softener-Stimulant Laxative) ascorbic acid (vitamin C) 500 mg 500 mg PO BID supplement 05/05/22 Unknown History tablet (Vitamin C) pantoprazole 40 mg tablet,delayed 40 mg PO BIDCM GERD 07/19/22 Unknown History release gabapentin 100 mg capsule 100 mg PO .COMPLEX PRN pain 11/26/23 Unknown History amlodipine 5 mg tablet 5 mg PO DAILY bp 12/16/23 Unknown History calcitriol 0.5 mcg capsule 0.5 mcg PO .COMPLEX on dialysis 12/16/23 07/09/24 History calcium acetate(phosphat bind) 667 676 mg PO TID is on dialysis 12/16/23 Unknown History mg capsule folic acid 800 mcg tablet 0.8 mg PO DAILY supplement 12/16/23 Unknown History levothyroxine 25 mcg tablet 25 mcg PO DAILY thyroid 12/16/23 Unknown History nitroglycerin 0.4 mg sublingual 0.4 mg sublingual Q5M chest pain 12/16/23 Unknown History tablet (Nitrostat) aspirin 81 mg capsule 81 mg PO DAILY blood thinner #30 12/26/23 Unknown Rx caps atorvastatin 40 mg tablet 40 mg PO DAILY cholesterol 03/18/24 06/26/24 History carvedilol 25 mg tablet 25 mg PO BID blood pressure 03/18/24 Unknown History hydralazine 50 mg tablet 50 mg PO TID bp #0 tabs 05/21/24 Unknown Rx melatonin 3 mg tablet 3 mg PO QHS PRN PRN Insomnia #0 05/21/24 Unknown Rx tabs menthol 0.44 %-zinc oxide 20.6 % 1 applic topical BID skin care #0 05/21/24 Unknown Rx topical ointment (Calmoseptine) grams sucralfate 1 gram tablet 1 g PO TID@0700,1100,1600 05/21/24 Unknown Rx indigestion #0 tabs oxycodone 5 mg tablet 2.5 mg (1/2 x 5 mg) PO Q8H PRN 07/02/24 Unknown Rx pain 3 days #10 tabs acetaminophen 325 mg tablet 650 mg PO Q6H PRN fever or pain 07/09/24 Unknown History diphenhydramine HCl 25 mg capsule 12.5 mg (1/2 x 25 mg) PO Q6H PRN 07/10/24 Unknown Rx (Banophen) PRN Itching #0 caps ertapenem 1 gram solution for 1 g IV .MWF 35 days #15 ea 07/10/24 Unknown Rx injection levetiracetam 500 mg tablet 500 mg PO BID 30 days #60 tabs 07/10/24 Unknown Rx insulin lispro 100 unit/mL 10 unit subcut TIDAC blood sugar 09/13/24 Unknown History subcutaneous pen (Humalog KwikPen (U-100) Insulin) ipratropium 0.5 mg-albuterol 3 mg 3 ml inhalation Q4H 09/13/24 Unknown History (2.5 mg base)/3 mL nebulization soln lorazepam 0.5 mg tablet 0.5 mg PO Q12H PRN anxiety 09/13/24 Unknown History ondansetron HCl 4 mg tablet 4 mg PO Q4H PRN PRN nausea and 09/13/24 Unknown History vomiting sevelamer carbonate 800 mg tablet 1,600 mg PO TID 09/13/24 Unknown History Allergy/AdvReac Type Severity Reaction Status Date / Time oxycodone (From OxyContin) Allergy sob Verified 09/13/24 15:36 Penicillins Allergy swelling Verified 09/13/24 15:36 in throat vancomycin Allergy Itching Verified 09/13/24 15:36 metronidazole AdvReac Nausea Verified 09/13/24 15:36 Family History Mother Diabetes CVA (cerebral vascular accident) Brother CAD (coronary artery disease) CABG X 3 Cancer testicular Diabetes Brother CAD (coronary artery disease) CABG X3 Diabetes Brother CAD (coronary artery disease) Stents Diabetes Sister CAD (coronary artery disease) CABG x 3 CVA (cerebral vascular accident) Diabetes Surgical History History of History of foot surgery History of bilateral carpal tunnel release History of rotator cuff surgery History of coronary artery stent placement (12/31/20) Social History household members: none number of children: 2 current occupational status: disabled Smoking Status: Never smoker alcohol intake: never substance use type: does not use caffeine: Yes Type: carbonated beverages Number of servings: 2 ROS Constitutional Constitutional: Reports malaise and weakness Eyes Eyes: Denies blindness, blurry vision, change in vision, discongugate gaze, double vision, dry eyes or loss of vision Cardiovascular Cardiovascular: Reports dyspnea on exertion Respiratory/Chest Respiratory/Chest: Reports shortness of breath at rest Gastrointestinal Gastrointestinal: Denies abdominal pain, anorexia, diarrhea, dry heaves, hematemesis, hematochezia, melena, nausea, rectal bleeding, vomiting or weight changes Genitourinary Genitourinary: Denies change in urinary stream, difficulty urinating, dribbling, dysuria, flank pain, hematuria, nocturia, oliguria, post void dribbling, urinary frequency, urinary hesitancy, urinary incontinence or urinary urgency Physical Exam Const alert, oriented x3 and no apparent distress General Appearance: well developed Orientation / Consciousness: oriented to person, oriented to place and oriented to time HEENT normocephalic Head and Scalp: atraumatic Neck no lymphadenopathy Resp no use of accessory muscles Auscultation: diminished lung sounds Cardio Cardio Narrative: distant GI Auscultation: normoactive bowel sounds Skin no rashes or lesions noted Neuro Sensorium / Orientation: awake and alert Lab / Micro Data Attestation: I reviewed the patient's lab results. 09/14/24 04:59 09/14/24 04:59 Labs: Laboratory Results - last 24 hr 09/13/24 15:55: WBC 8.9, RBC 3.35 L, Hgb 10.1 L, Hct 33.3 L, MCV 99.4 H, MCH 30.1, MCHC 30.3 L, RDW Std Deviation 62.4 H, RDW Coeff of Fior 17.0 H, Plt Count 458 H, MPV 9.2, Immature Gran % (Auto) 0.400, Neut % (Auto) 74.8 H, Lymph % (Auto) 12.7 L, [place] % (Auto) 9.0, Eos % (Auto) 1.6, Baso % (Auto) 1.5 H, Absolute Neuts (auto) 6.7, Absolute Lymphs (auto) 1.13, Nucleated RBC % 0, PT 14.6, INR 1.1, APTT 34.5, Sodium 135 L, Potassium 5.2 H, Chloride 100, Carbon Dioxide 30.0, Anion Gap 5, BUN 32 H, Creatinine 4.95 H, Estim Creat Clear Calc 12.02, Est GFR (MDRD) Af Amer 12 L, Est GFR (MDRD) Non-Af 10 L, BUN/Creatinine Ratio 6.5 L, Glucose 143 H, Lactic Acid 1.1, Calcium 9.2, Total Bilirubin 0.40, AST 24, ALT 22, Alkaline Phosphatase 251 H, Total Protein 8.8 H, Albumin 2.7 L, Globulin 6.1 H, Albumin/Globulin Ratio 0.4 L 09/13/24 16:18: Urine Color Yellow, Urine Clarity Clear, Urine pH 8.0, Ur Specific Fifty [place] 1.010, Urine Protein 500 H, Urine Glucose (UA) Normal, Urine Ketones Negative, Urine Occult Blood 10 H, Urine Nitrite Negative, Urine Bilirubin Negative, Urine Urobilinogen Normal, Ur Leukocyte Esterase 100 H, Urine RBC 0 SEEN, Urine WBC >100 SEEN, Ur Squamous Epith Cells 5-10 SEEN, Ur Transition Epith Cell 0-5 SEEN, Urine Bacteria 1+, Hyaline Casts 0-5 SEEN, Urine Mucus 0 SEEN 09/14/24 04:59: WBC 8.8, RBC 2.87 L, Hgb 8.8 L, Hct 28.9 L, MCV 100.7 H, MCH 30.7, MCHC 30.4 L, RDW Std Deviation 63.0 H, RDW Coeff of Fior 16.9 H, Plt Count 427, MPV 9.8, Immature Gran % (Auto) 0.600, Neut % (Auto) 75.8 H, Lymph % (Auto) 13.3 L, [place] % (Auto) 7.6, Eos % (Auto) 1.7, Baso % (Auto) 1.0, Absolute Neuts (auto) 6.7, Absolute Lymphs (auto) 1.17, Nucleated RBC % 0, Sodium 136, Potassium 5.3 H, Chloride 102, Carbon Dioxide 29.0, Anion Gap 5, BUN 38 H, Creatinine 5.47 H, Estim Creat Clear Calc 11.59, Est GFR (MDRD) Af Amer 10 L, Est GFR (MDRD) Non-Af 9 L, BUN/Creatinine Ratio 6.9 L, Glucose 146 H, Calcium 8.6, Phosphorus 3.1, Magnesium 1.8, Total Bilirubin 0.30, AST 20, ALT 14, Alkaline Phosphatase 202 H, Total Protein 7.2, Albumin 2.2 L, Globulin 5.0 H, Albumin/Globulin Ratio 0.4 L, TSH 2.490 09/14/24 06:38: POC Glucose 151 H 09/14/24 07:50: S.aureus Protein A PCR NEGATIVE, MRSA (PCR) Negative 09/14/24 11:43: POC Glucose 88 Micro: Microbiology 09/14/24 07:50 Wound - Right Foot Gram Stain - Final 09/13/24 16:18 Urine, Clean Catch Urine Culture - Preliminary Culture exhibits no growth. Imaging Radiology Impression Chest X-Ray 09/13/24 16:25 IMPRESSION: Significantly improved aeration in the left lung base prior study. Mild atelectasis or infiltrate with small pleural effusion in the left lung base, also present previously. Electronically Signed: Alexis Rosales MD at 17:26 EST , KUB X-Ray 09/14/24 05:00 IMPRESSION: Moderate amount of stool in the colon. Electronically Signed: Dallas Thakur MD at 6:01 EST ,
[2024-09-14] MEDS: oxyCODONE 5 MG Tablet 2.5 MG PO (16:07)
[2024-09-14 16:58] LABS: Bedside Glucose 113 mg/dL (74-106)
[2024-09-14] MEDS: Menthol/Lanolin/Calamine/Znox 113 GM Tube 1 APPLIC TOPICAL (23:09)
[2024-09-15] VITALS (7 sets, daily range): BP systolic 132–142; BP diastolic 56–82; PULSE 63–82; RESP 14–18; TEMP 36.6–37.2; O2SAT 93–94; BMI 26.5
[2024-09-15] MEDS: MELATONIN 3 MG TABLET PO ×2 (00:55→22:38)
[2024-09-15] MEDS: oxyCODONE 5 MG Tablet 2.5 MG PO ×3 (00:57→22:38)
[2024-09-15 04:50] LABS: Magnesium 1.7 mg/dL (1.6-2.6); Phosphorus 2.5 mg/dL (2.5-4.9)
[2024-09-15] MEDS: Sucralfate 1 GM Tablet PO ×3 (06:45→17:32)
[2024-09-15] MEDS: hydrALAZINE 50 MG Tablet PO ×3 (06:45→22:38)
[2024-09-15] MEDS: Levothyroxine 25 MCG TABLET PO (06:46)
[2024-09-15 07:52] LABS: Bedside Glucose 88 mg/dL (74-106)
[2024-09-15] MEDS: amLODIPine 5 MG Tablet PO (11:02)
[2024-09-15] MEDS: SEVELAMER CARBONATE 800 MG TABLET 1600 MG PO ×3 (11:02→17:39)
[2024-09-15] MEDS: levETIRAcetam 500 MG Tablet PO ×2 (11:03→22:38)
[2024-09-15] MEDS: Heparin Injection (Vial) 5,000 UNIT/ML VIAL 5000 UNIT SC ×2 (11:03→22:37)
[2024-09-15] MEDS: Menthol/Lanolin/Calamine/Znox 113 GM Tube 1 APPLIC TOPICAL ×2 (11:03→22:39)
[2024-09-15] MEDS: Pantoprazole Sodium 40 MG Tablet PO ×2 (11:03→17:39)
[2024-09-15] MEDS: Paroxetine 20 MG Tablet PO (11:03)
[2024-09-15] MEDS: Ascorbic Acid 500 MG Tablet PO ×2 (11:03→22:38)
[2024-09-15] MEDS: Aspirin 81 MG TAB.CHEW PO (11:04)
[2024-09-15] MEDS: Folic Acid 1 MG Tablet PO (11:04)
[2024-09-15] MEDS: Carvedilol 25 MG Tablet PO ×2 (11:04→17:39)
[2024-09-15] MEDS: Calcium Acetate 667 MG Capsule PO ×3 (11:04→17:33)
[2024-09-15] MEDS: Lactobacillis Acidophilus 1 CAP PO ×4 (11:05→22:38)
--- NOTE | 2024-09-15 11:35 | PCM.PN.HOSP ---
Reason for Visit Reason for Visit: Diagnoses Hyperkalemia (09/13/24) End stage renal disease (09/13/24) Acute cystitis without hematuria (09/13/24) Urinary tract infection, site not specified (09/13/24) Generalized abdominal pain (09/13/24) Carrier of other specified bacterial diseases (09/13/24) Dependence on renal dialysis (09/13/24) Subjective Subjective Saw patient at bedside this morning. Patient was sleeping on my arrival to the room and remained fairly sleepy throughout the encounter. Denied any acute pain or discomfort this morning. No other new concerns. Objective Data Objective Data Vital Signs: Vital Signs Temp Pulse Resp BP Pulse Ox O2 Del Method O2 Flow Rate 97.8 F 63 14 139/59 H 94 Nasal Cannula 2 09/15/24 11:21 09/15/24 11:21 09/15/24 11:21 09/15/24 11:21 09/15/24 11:21 09/15/24 11:21 09/15/24 11:21 Oxygen Flow Rate (L/min) 2 Oxygen Delivery Method Nasal Cannula Weight: 75 kg Body Mass Index (BMI) 26.5 Intake & Output: Intake and Output for Last 24 Hours 09/13/24 09/14/24 09/15/24 23:59 23:59 23:59 Intake Total 59 300 / 450 350 / 350 Output Total 1900 / 1900 0 / 0 Balance 59 / 59 -1600 / -1450 350 / 350 Lab / Micro Data 09/14/24 04:59 09/14/24 04:59 Labs: Laboratory Results - last 24 hr 09/14/24 11:43: POC Glucose 88 09/14/24 16:10: POC Glucose 113 H 09/15/24 04:11: Phosphorus 2.5, Magnesium 1.7 09/15/24 06:47: POC Glucose 88 Micro: Microbiology 09/14/24 07:50 Wound - Right Foot Gram Stain - Final 09/14/24 07:50 Wound - Right Foot Wound Culture - Preliminary 09/13/24 16:18 Urine, Clean Catch Urine Culture - Preliminary Culture exhibits no growth. Physical Exam Const alert, oriented x3, no apparent distress and average body habitus Constitutional Narrative: Elderly female, chronically ill-appearing, fatigued appearing, otherwise laying in bed comfortably, in no acute distress. General Appearance: cooperative and comfortable HEENT normocephalic, head/scalp atraumatic, hearing grossly normal bilaterally, nasal mucous membranes and turbinates normal and moist oral mucous membranes Eyes PERRL, EOMs intact bilaterally and conjunctivae normal Neck full ROM Chest inspection of chest normal Resp normal respiratory effort, normal air movement, no use of accessory muscles and clear to auscultation bilaterally Cardio regular rate, regular rhythm, no murmurs and peripheral pulses 2+ throughout GI normal to inspection, nondistended, normoactive bowel sounds, soft to palpation, non-tender and non-distended Back/Spine normal ROM Extremity normal to inspection, full ROM and no pedal edema Psych mental status grossly normal Psych Narrative: Flat affect. Assessment & Plan Assessment/Plan (1) VRE (vancomycin resistant enterococcus) culture positive: (2) Acute cystitis: PLAN: Plan Patient is a 59-year-old female who presented [facility] ED on 09/13/2024 from [facility] for urine culture positive for VRE. 1. Acute cystitis with VRE ? Infectious disease following. UA on admit with 100 leukocyte esterase, negative nitrites, 1+ bacteria. Urine culture at [facility] reportedly grew VRE. Urine culture from 09/13 here with prelim showing no growth. Blood cultures pending. Continue IV daptomycin for now. 2. Recent complicated admission at outside hospital with recurrent diabetic foot infection ? Noted to have recent complicated hospitalization at [facility] in [place]. Hospitalization was complicated by strep bacteremia, right ankle infection and C. difficile. Reportedly completed 8 days of p.o. vancomycin while there and completed the last 2 days of treatment at [facility]. Per ID, if patient does develop recurrent diarrhea would plan to treat with p.o. vancomycin but patient has not had any diarrhea since admission. Notably had wound cultures from right foot/ankle drawn that are negative to this point. 3. ESRD on HD ? Nephrology following. On HD Tuesday, last session on Friday 09/14. Continue HD on home schedule. 4. Acute on chronic debility ? PT/OT/case management following. Was recently discharged to [facility] after hospitalization at [facility]. Will plan to return there on this discharge. Chronic medical conditions: ? Chronic anemia: Hemoglobin stable at baseline around 8-9. ? Type 2 diabetes mellitus: Treating with sliding scale insulin with meals while inpatient. ? CAD with stenting, hypertension, hyperlipidemia: Continue home aspirin, statin, amlodipine, Coreg, hydralazine. ? Seizure disorder: Continue home Keppra. ? Hypothyroidism: Continue home Synthroid. ? Chronic back pain: Continue home oxycodone as needed. ? GERD: Continue home PPI and sucralfate. ? Depression with anxiety: Stable. Continue home Paxil and Ativan as needed. DVT prophylaxis: Heparin subcu CODE STATUS: Full code, verified Expected disposition: Back to [facility], [facility] Total clinical time spent by myself addressing the patient's medical issues, reviewing all the data, and collaborating with patient's care team: 35 minutes. Charges/Coding Visit Charges Inpatient E&M: 75112 Subs Hosp L2
[2024-09-15] MEDS: Glucerna Shake 120 ML LIQUID PO ×2 (14:28→17:42)
[2024-09-15 15:04] LABS: Bedside Glucose 83 mg/dL (74-106)
[2024-09-15] MEDS: LORazepam 0.5 MG Tablet PO (17:32)
[2024-09-15 18:16] LABS: Bedside Glucose 145 mg/dL (74-106)
[2024-09-15] MEDS: Acetaminophen 325 MG Tablet 650 MG PO (19:39)
[2024-09-15] MEDS: NORMAL SALINE 0.9% IV (22:30)
[2024-09-15] MEDS: DAPTOMYCIN IV (22:30)
[2024-09-15] MEDS: 0.9% Saline Lock 10 ML Syringe IV (22:36)
[2024-09-16] VITALS (8 sets, daily range): BP systolic 127–154; BP diastolic 58–88; PULSE 63–86; RESP 15–20; TEMP 36.8–37.2; O2SAT 93–97; BMI 26.5
[2024-09-16 01:02] LABS: Bedside Glucose 116 mg/dL (74-106)
[2024-09-16] MEDS: Sucralfate 1 GM Tablet PO ×3 (06:45→15:22)
[2024-09-16] MEDS: Levothyroxine 25 MCG TABLET PO (06:45)
[2024-09-16] MEDS: hydrALAZINE 50 MG Tablet PO ×3 (06:45→21:25)
[2024-09-16 07:14] LABS: Bedside Glucose 144 mg/dL (74-106)
[2024-09-16 08:16] LABS: Anion Gap 9 (5-15); BUN 39 mg/dL (7-18); BUN/Creat Ratio 7.2 RATIO (10-20); Calcium,Total 9.2 mg/dL (8.5-10.1); Chloride 101 mmol/L (98-107); Creatinine, Serum 5.45 mg/dL (0.55-1.02); EST Glomerular Filtration Rate 9 mL/min (>60); Est Glom Filt Rate - Afr Amer 10 mL/min (>60); Estimated Creatinine Clearance 11.51 ml/min; Glucose 141 mg/dL (74-106); Sodium Level 136 mmol/L (136-145)
[2024-09-16] MEDS: Aspirin 81 MG TAB.CHEW PO (10:11)
[2024-09-16] MEDS: Carvedilol 25 MG Tablet PO ×2 (10:11→17:02)
[2024-09-16] MEDS: levETIRAcetam 500 MG Tablet PO ×2 (10:12→21:26)
[2024-09-16] MEDS: amLODIPine 5 MG Tablet PO (10:12)
[2024-09-16] MEDS: Folic Acid 1 MG Tablet PO (10:12)
[2024-09-16] MEDS: Calcium Acetate 667 MG Capsule PO ×3 (10:12→16:58)
[2024-09-16] MEDS: Pantoprazole Sodium 40 MG Tablet PO ×2 (10:12→16:58)
[2024-09-16] MEDS: Ascorbic Acid 500 MG Tablet PO ×2 (10:13→21:26)
[2024-09-16] MEDS: Paroxetine 20 MG Tablet PO (10:13)
[2024-09-16] MEDS: SEVELAMER CARBONATE 800 MG TABLET 1600 MG PO ×3 (10:13→16:58)
[2024-09-16] MEDS: Heparin Injection (Vial) 5,000 UNIT/ML VIAL 5000 UNIT SC ×2 (10:13→21:27)
[2024-09-16] MEDS: Lactobacillis Acidophilus 1 CAP PO ×4 (10:13→21:25)
[2024-09-16] MEDS: Menthol/Lanolin/Calamine/Znox 113 GM Tube 1 APPLIC TOPICAL ×2 (10:14→22:00)
[2024-09-16] MEDS: oxyCODONE 5 MG Tablet 2.5 MG PO ×2 (10:15→20:15)
[2024-09-16] MEDS: Glucerna Shake 120 ML LIQUID PO ×2 (10:45→16:57)
--- NOTE | 2024-09-16 12:07 | PCM.PN.HOSP ---
Reason for Visit Reason for Visit: Diagnoses Hyperkalemia (09/13/24) End stage renal disease (09/13/24) Acute cystitis without hematuria (09/13/24) Urinary tract infection, site not specified (09/13/24) Generalized abdominal pain (09/13/24) Carrier of other specified bacterial diseases (09/13/24) Dependence on renal dialysis (09/13/24) Subjective Subjective Saw patient at bedside this morning. Patient was anxious appearing and tearful during my encounter with her. Stated that she was having ongoing chronic back pain that felt worse this morning. She otherwise denied any fevers or chills. Denied any UTI symptoms. No other new concerns today. Objective Data Objective Data Vital Signs: Vital Signs Temp Pulse Resp BP Pulse Ox O2 Del Method O2 Flow Rate 98.2 F 81 18 143/61 H 95 Nasal Cannula 3 09/16/24 10:50 09/16/24 10:50 09/16/24 10:50 09/16/24 10:50 09/16/24 10:50 09/16/24 10:58 09/16/24 10:50 Oxygen Flow Rate (L/min) 3 Oxygen Delivery Method Nasal Cannula Weight: 75 kg Body Mass Index (BMI) 26.5 Intake & Output: Intake and Output for Last 24 Hours 09/14/24 09/15/24 09/16/24 23:59 23:59 23:59 Intake Total 300 / 450 1306 / 1806 700 / 700 Output Total 1900 / 1900 0 / 10 Balance -1600 / -1450 1306 / 1796 690 / 690 Lab / Micro Data 09/14/24 04:59 09/16/24 06:39 Labs: Laboratory Results - last 24 hr 09/15/24 11:16: POC Glucose 83 09/15/24 17:41: POC Glucose 145 H 09/15/24 22:36: POC Glucose 116 H 09/16/24 06:39: Sodium 136, Potassium 5.0, Chloride 101, Carbon Dioxide 26.0, Anion Gap 9, BUN 39 H, Creatinine 5.45 H, Estim Creat Clear Calc 11.51, Est GFR (MDRD) Af Amer 10 L, Est GFR (MDRD) Non-Af 9 L, BUN/Creatinine Ratio 7.2 L, Glucose 141 H, Calcium 9.2 09/16/24 06:50: POC Glucose 144 H Micro: Microbiology 09/13/24 16:18 Urine, Clean Catch Urine Culture - Final Culture exhibits no growth. 09/14/24 07:50 Wound - Right Foot Gram Stain - Final 09/14/24 07:50 Wound - Right Foot Wound Culture - Preliminary Physical Exam Const alert, oriented x3, no apparent distress and average body habitus Constitutional Narrative: Elderly female, chronically ill-appearing, anxious appearing, otherwise sitting at edge of bed comfortably. General Appearance: cooperative HEENT normocephalic, head/scalp atraumatic, hearing grossly normal bilaterally, nasal mucous membranes and turbinates normal and moist oral mucous membranes Eyes PERRL, EOMs intact bilaterally and conjunctivae normal Neck full ROM Chest inspection of chest normal Resp normal respiratory effort, normal air movement, no use of accessory muscles and clear to auscultation bilaterally Cardio regular rate, regular rhythm, no murmurs and peripheral pulses 2+ throughout GI normal to inspection, nondistended, normoactive bowel sounds, soft to palpation, non-tender and non-distended Back/Spine normal ROM Extremity normal to inspection, full ROM and no pedal edema Psych mental status grossly normal Mood & Affect: anxious Assessment & Plan Assessment/Plan (1) VRE (vancomycin resistant enterococcus) culture positive: (2) Acute cystitis: PLAN: Plan Patient is a 59-year-old female who presented [facility] ED on 09/13/2024 from [facility] for urine culture positive for VRE. 1. Acute cystitis with VRE ? Infectious disease following. UA on admit with 100 leukocyte esterase, negative nitrites, 1+ bacteria. Urine culture at [facility] reportedly grew VRE. Urine culture from 09/13 here with prelim showing no growth. Blood cultures with no growth at 48 hours. Continue IV daptomycin for now and appreciate final ID recs tomorrow in preparation for discharge back to SNF tomorrow. 2. Recent complicated admission at outside hospital with recurrent diabetic foot infection ? Noted to have recent complicated hospitalization at [facility] in [place]. Hospitalization was complicated by strep bacteremia, right ankle infection and C. difficile. Reportedly completed 8 days of p.o. vancomycin while there and completed the last 2 days of treatment at [facility]. Per ID, if patient does develop recurrent diarrhea would plan to treat with p.o. vancomycin but patient has not had any diarrhea since admission. Notably had wound cultures from right foot/ankle drawn that are negative to this point. 3. ESRD on HD ? Nephrology following. On HD Tuesday, last session on Friday 09/14. Continue HD on home schedule. 4. Acute on chronic debility ? PT/OT/case management following. Was recently discharged to [facility] after hospitalization at [facility]. If patient needs IV antibiotics, would need pre-CERT to return to skilled level of care there. If not, can return to long-term care there. Chronic medical conditions: ? Chronic anemia: Hemoglobin stable at baseline around 8-9. ? Type 2 diabetes mellitus: Treating with sliding scale insulin with meals while inpatient. ? CAD with stenting, hypertension, hyperlipidemia: Continue home aspirin, statin, amlodipine, Coreg, hydralazine. ? Seizure disorder: Continue home Keppra. ? Hypothyroidism: Continue home Synthroid. ? Chronic back pain: Continue home oxycodone as needed. ? GERD: Continue home PPI and sucralfate. ? Depression with anxiety: Stable. Continue home Paxil and Ativan as needed. DVT prophylaxis: Heparin subcu CODE STATUS: Full code, verified Expected disposition: Back to [facility], 1 to 2 days Total clinical time spent by myself addressing the patient's medical issues, reviewing all the data, and collaborating with patient's care team: 35 minutes. Charges/Coding Visit Charges Inpatient E&M: 66661 Subs Hosp L2
[2024-09-16 13:14] LABS: Bedside Glucose 95 mg/dL (74-106)
[2024-09-16] MEDS: Insulin Lispro 100 UNIT/ML INSULN.PEN SC (16:56)
[2024-09-16] MEDS: Acetaminophen 325 MG Tablet 650 MG PO (20:16)
[2024-09-16] MEDS: MELATONIN 3 MG TABLET PO (21:26)
[2024-09-16 22:17] LABS: Bedside Glucose 149 mg/dL (74-106)
[2024-09-16] MEDS: LORazepam 0.5 MG Tablet PO (23:57)
[2024-09-17] VITALS (19 sets, daily range): BP systolic 122–250; BP diastolic 45–66; PULSE 62–79; RESP 14–18; TEMP 36.2–36.8; O2SAT 85–98; BMI 25.9; BMI 25.2
[2024-09-17 00:33] LABS: Bedside Glucose 176 mg/dL (74-106)
[2024-09-17] MEDS: oxyCODONE 5 MG Tablet 2.5 MG PO ×3 (04:14→21:27)
[2024-09-17 06:46] LABS: Anion Gap 7 (5-15); BUN 47 mg/dL (7-18); BUN/Creat Ratio 7.3 RATIO (10-20); Calcium,Total 9.2 mg/dL (8.5-10.1); Chloride 101 mmol/L (98-107); EST Glomerular Filtration Rate 7 mL/min (>60); Est Glom Filt Rate - Afr Amer 9 mL/min (>60); Estimated Creatinine Clearance 9.69 ml/min; Glucose 129 mg/dL (74-106); Potassium 5.3 mmol/L (3.5-5.1); Sodium Level 133 mmol/L (136-145)
[2024-09-17 07:01] LABS: Bedside Glucose 124 mg/dL (74-106)
--- NOTE | 2024-09-17 08:43 | PN.HOSP_ITS ---
Reason for Visit Reason for Visit: Diagnoses Hyperkalemia (09/13/24) End stage renal disease (09/13/24) Acute cystitis without hematuria (09/13/24) Urinary tract infection, site not specified (09/13/24) Generalized abdominal pain (09/13/24) Carrier of other specified bacterial diseases (09/13/24) Dependence on renal dialysis (09/13/24) Subjective Subjective No new events. Objective Data Objective Data Vital Signs: Vital Signs Temp Pulse Resp BP Pulse Ox O2 Del Method O2 Flow Rate 36.2 C L 67 15 122/46 H 93 Nasal Cannula 2 09/17/24 03:34 09/17/24 03:34 09/17/24 05:00 09/17/24 03:34 09/17/24 07:00 09/17/24 07:00 09/17/24 07:00 Oxygen Flow Rate (L/min) 2 Oxygen Delivery Method Nasal Cannula Weight: 73.1 kg Body Mass Index (BMI) 25.9 Intake & Output: Intake and Output for Last 24 Hours 09/15/24 09/16/24 09/17/24 23:59 23:59 23:59 Intake Total 1306 / 1806 1200 / 1350 300 / 300 Output Total 0 / 10 10 / 10 Balance 1306 / 1796 1190 / 1340 300 / 300 Lab / Micro Data 09/14/24 04:59 09/17/24 05:29 Labs: Laboratory Results - last 24 hr 09/16/24 12:53: POC Glucose 95 09/16/24 16:52: POC Glucose 176 H 09/16/24 21:11: POC Glucose 149 H 09/17/24 05:29: Sodium 133 L, Potassium 5.3 H, Chloride 101, Carbon Dioxide 25.0, Anion Gap 7, BUN 47 H, Creatinine 6.40 H, Estim Creat Clear Calc 9.69, Est GFR (MDRD) Af Amer 9 L, Est GFR (MDRD) Non-Af 7 L, BUN/Creatinine Ratio 7.3 L, G lucose 129 H, Calcium 9.2 09/17/24 06:42: POC Glucose 124 H Micro: Microbiology 09/13/24 16:05 Blood Culture (Wb) - Venous Blood Culture - Preliminary No growth in 48 hours. 09/13/24 15:55 Blood Culture (Wb) - Venous Blood Culture - Preliminary No growth in 48 hours. 09/13/24 16:58 Blood Culture (Wb)#3 - Anticubital Right Blood Culture - Preliminary No growth in 48 hours. 09/14/24 07:50 Wound - Right Foot Gram Stain - Final 09/14/24 07:50 Wound - Right Foot Wound Culture - Preliminary Staphylococcus species GPC Poss Enterococcus sp 09/13/24 16:18 Urine, Clean Catch Urine Culture - Final Culture exhibits no growth. Physical Exam Const alert and no apparent distress Constitutional Narrative: listless. alert. nontoxic. Seen on HD. HEENT head/scalp atraumatic and moist oral mucous membranes Resp normal respiratory effort, no retractions, no use of accessory muscles and clear to auscultation bilaterally Cardio regular rate, regular rhythm, S1 normal heart sound and S2 normal heart sound GI normal to inspection, nondistended, normoactive bowel sounds, soft to palpation, non-tender and non-distended Neuro Sensorium / Orientation: awake, alert and oriented to person Psych affect normal Assessment & Plan Assessment/Plan (1) VRE (vancomycin resistant enterococcus) culture positive: (2) Acute cystitis: PLAN: Plan Acute cystitis with VRE * Infectious disease following. UA on admit with 100 leukocyte esterase, negative nitrites, 1+ bacteria. Urine culture at [facility] reportedly grew VRE. Urine culture from 09/13 here with prelim showing Staph sp and GPC possible Enterococcus. Blood cultures with no growth at 48 hours. Continue IV daptomycin for now and appreciate final ID recs tomorrow in preparation for discharge back to SNF tomorrow. Recent complicated admission at outside hospital with recurrent diabetic foot infection * Noted to have recent complicated hospitalization at [facility] in [place]. Hospitalization was complicated by strep bacteremia, right ankle infection and C. difficile. Reportedly completed 8 days of p.o. vancomycin while there and completed the last 2 days of treatment at [facility]. Per ID, if patient does develop recurrent diarrhea would plan to treat with p.o. vancomycin but patient has not had any diarrhea since admission. Notably had wound cultures from right foot/ankle drawn that are negative to this point. * Podiatry consulted. ESRD on HD * Nephrology following. On HD Tuesday Acute on chronic debility * PT/OT/case management following. Was recently discharged to [facility] after hospitalization at [facility]. If patient needs IV antibiotics, would need pre-CERT to return to skilled level of care there. If not, can return to long-term care there. Chronic medical conditions: ? Chronic anemia: Hemoglobin stable at baseline around 8-9. ? Type 2 diabetes mellitus: Treating with sliding scale insulin with meals while inpatient. ? CAD with stenting, hypertension, hyperlipidemia: Continue home aspirin, statin, amlodipine, Coreg, hydralazine. ? Seizure disorder: Continue home Keppra. ? Hypothyroidism: Continue home Synthroid. ? Chronic back pain: Continue home oxycodone as needed. ? GERD: Continue home PPI and sucralfate. ? Depression with anxiety: Stable. Continue home Paxil and Ativan as needed. DVT prophylaxis: Heparin subcu CODE STATUS: Full code, verified Charges/Coding Visit Charges Inpatient E&M: 60925 Subs Hosp L2
[2024-09-17] MEDS: 0.9% Normal Saline 1,000 ML IV.SOLN. 1000 ML OPERA.SITE (08:52)
[2024-09-17] MEDS: PureFlow B 2K Dialysis Soln 1 BAG 6 BAG PF (08:52)
[2024-09-17] MEDS: Acetaminophen 325 MG Tablet 650 MG PO ×3 (09:06→23:53)
--- NOTE | 2024-09-17 11:21 | PCM.PN.REN ---
Subjective Subjective Following for ESRD. The patient is seen during hemodialysis treatment today. She denies chest pain, shortness of breath, or nausea. Patient complains of fatigue. Objective Data Objective Data Vital Signs: Vital Signs Temp Pulse Resp BP Pulse Ox O2 Del Method O2 Flow Rate 98.1 F 72 18 145/66 H 97 Nasal Cannula 3 09/17/24 09:07 09/17/24 10:45 09/17/24 09:07 09/17/24 10:45 09/17/24 09:07 09/17/24 09:07 09/17/24 09:07 Oxygen Flow Rate (L/min) 3 Oxygen Delivery Method Nasal Cannula Weight: 73.1 kg Body Mass Index (BMI) 25.9 Intake & Output: Intake and Output for Last 24 Hours 09/15/24 09/16/24 09/17/24 23:59 23:59 23:59 Intake Total 1306 / 1806 1200 / 1350 300 / 300 Output Total 0 / 10 Balance 1306 / 1796 1190 / 1340 300 / 300 Lab / Micro Data 09/18/24 07:44 09/17/24 05:29 Labs: Laboratory Results - last 24 hr 09/16/24 12:53: POC Glucose 95 09/16/24 16:52: POC Glucose 176 H 09/16/24 21:11: POC Glucose 149 H 09/17/24 05:29: Sodium 133 L, Potassium 5.3 H, Chloride 101, Carbon Dioxide 25.0, Anion Gap 7, BUN 47 H, Creatinine 6.40 H, Estim Creat Clear Calc 9.69, Est GFR (MDRD) Af Amer 9 L, Est GFR (MDRD) Non-Af 7 L, BUN/Creatinine Ratio 7.3 L, Glucose 129 H, Calcium 9.2 09/17/24 06:42: POC Glucose 124 H Micro: Microbiology 09/14/24 07:50 Wound - Right Foot Gram Stain - Final 09/14/24 07:50 Wound - Right Foot Wound Culture - Final Staphylococcus auricularis Enterococcus faecalis 09/13/24 16:05 Blood Culture (Wb) - Venous Blood Culture - Preliminary No growth in 48 hours. 09/13/24 15:55 Blood Culture (Wb) - Venous Blood Culture - Preliminary No growth in 48 hours. 09/13/24 16:58 Blood Culture (Wb)#3 - Anticubital Right Blood Culture - Preliminary No growth in 48 hours. 09/13/24 16:18 Urine, Clean Catch Urine Culture - Final Culture exhibits no growth. Physical Exam Narrative General appearance: Ill-appearing. NAD. HEENT: Normocephalic, atraumatic. PERRLA, EOMI. Mucous membrane moist. Cardiovascular: Normal S1, S2. No rubs or gallops. Lungs: Clear to auscultation anteriorly. Abdomen: Normal bowel sounds, soft, nontender, no guarding/rebound. Extremities: No clubbing, cyanosis, or edema. Assessment & Plan Assessment/Plan (1) ESRD (end stage renal disease) on dialysis: (2) Hyperkalemia: PLAN: Plan Impression/Plan: The patient is a 59-year-old female with past history of ESRD, type 2 diabetes mellitus, hypertension, CAD, seizure disorder, hypothyroidism, hyperlipidemia, GERD, major depressive disorder. The patient is admitted to the hospital on 09/13/2024 for treatment of VRE UTI. Nephrology is following for ESRD and dialysis management. ESRD. Patient dialyzes on MWF schedule at [facility]. Patient is followed at outpatient dialysis center by Dr. Anderson. We will continue dialysis on MWF schedule while patient is admitted to the hospital. The patient is seen during hemodialysis treatment today. She is tolerating dialysis well. We are using 2K dialysate. We are planning on ultrafiltration of 2.5 L. Next dialysis is planned for 09/19/2024. Hyperkalemia. The patient has mild hyperkalemia with potassium level of 5.3 mmol/L today on 09/17/2024. Hyperkalemia secondary to ESRD. We are using 2K dialysate with hemodialysis. Potassium level should improve with hemodialysis. Recheck potassium level tomorrow. Nephrology plan is discussed with Dr. Prado.
[2024-09-17] MEDS: 0.9% Saline Lock 10 ML Syringe IV (12:50)
[2024-09-17] MEDS: Heparin 10,000 UNITS/10 ML Vial IV (12:50)
[2024-09-17] MEDS: Gabapentin 100 MG Capsule PO (13:04)
[2024-09-17] MEDS: Calcitriol 0.25 MCG Capsule 0.5 MCG PO (13:05)
[2024-09-17] MEDS: Lactobacillis Acidophilus 1 CAP PO ×3 (13:06→22:39)
[2024-09-17] MEDS: SEVELAMER CARBONATE 800 MG TABLET 1600 MG PO ×2 (13:06→17:23)
[2024-09-17] MEDS: Menthol/Lanolin/Calamine/Znox 113 GM Tube 1 APPLIC TOPICAL ×2 (13:07→21:31)
[2024-09-17] MEDS: Aspirin 81 MG TAB.CHEW PO (13:07)
[2024-09-17] MEDS: Pantoprazole Sodium 40 MG Tablet PO ×2 (13:07→17:24)
[2024-09-17] MEDS: Folic Acid 1 MG Tablet PO (13:07)
[2024-09-17] MEDS: Paroxetine 20 MG Tablet PO (13:08)
--- NOTE | 2024-09-17 13:08 | CON.PCM_ITS ---
Assessment & Plan Assessment/Plan (1) Non-pressure chronic ulcer of other part of right foot with necrosis of muscle: PLAN: Exam performed. Patient has cavovarus deformity right lower extremity suggestive of loss of function of the peroneus brevis tendon transfer. Left lower extremity wounds are all healed at this time. Plantar right foot wound is healed. Residual lateral ankle ulceration noted with periwound erythema and edema suggestive of cellulitis. Patient missed multiple wound care appointments in the post operative outpatient setting. This was due to transportation issues [facility] with [facility]. The patient and I both discussed with SNF regarding importance of weekly follow-up. Patient was ultimately lost during that period with multiple canceled visits due to transportation issues. This is complicated care to right lower extremity. At this time we will plan for operative treatment right lower extremity, wound swab cultures were taken today of the right ankle wound Will plan for debridement right lateral ankle wound with application of graft with deep cultures. Will observe and likely plan for outpatient p.o. antibiotics. Patient may require [place] or patellar tendon bearing boot to right lower extremity versus reconstruction of cavovarus deformity pending resolution of infection and wound healing. Patient is high risk for below-knee amputation or even more proximal amputation or severe life-threatening infection due to diabetic status with end-stage renal disease and history of noncompliance and poor follow-up. (2) Cellulitis of right lower limb: HPI Consult Data Date of Consult: 09/17/24 HPI Narrative HPI Narrative: DIONY ROCHA, is a 59 F who presents with UTI. Patient's left lower extremity wounds have healed. Patient notes the right lower extremity wounds have not healed that her foot is turned in slightly. Patient denies any constitutional site current. Patient does report 8 out of 10 pain to her right ankle. Patient was lost to follow-up patient reports that SNF would not bring her to wound care visits. Patient did miss multiple wound care visits in the outpatient setting. The last time that I saw the patient was on 07/10/2024 approximately 2 months ago. No other complaints. [facility] Medical History ESRD (end stage renal disease) on dialysis Non-pressure chronic ulcer of right ankle with necrosis of muscle Non-pressure chronic 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 layer exposed Non-pressure chronic ulcer of other part of left foot with fat layer exposed Non-pressure chronic ulcer of left ankle with necrosis of muscle Adverse effect of synthetic cannabinoids, initial encounter Carson coma scale score 13-15, at arrival to emergency department Acute alteration in mental status Short Achilles tendon (acquired), left ankle Short Achilles tendon (acquired), right ankle Acquired cavovarus deformity of left foot Acquired cavovarus deformity of right foot Type 2 diabetes mellitus with diabetic polyneuropathy Adult failure to thrive Debility Charcot's joint, right ankle and foot Charcot's joint, left ankle and foot Drowsiness Mental status, decreased Carotid artery stenosis MSSA bacteremia ESRD on hemodialysis Osteomyelitis Anemia in chronic illness Type 2 diabetes mellitus Foot osteomyelitis, left Chronic renal disease, stage 4, severely decreased glomerular filtration rate (GFR) between 15-29 mL/min/1.73 square meter Acute on chronic anemia Chronic ulcer of right foot with necrosis of bone Chronic kidney disease, stage 4 (severe) Diabetes mellitus with diabetic polyneuropathy Diabetic foot ulcers Chronic kidney disease, stage 3b Cellulitis Acute lumbar radiculopathy Essential hypertension Adult failure to thrive COVID-19 (08/28/21) Chronic ulcer of right leg with fat layer exposed Ulcer of left foot with fat layer exposed Chronic ulcer of right foot with fat layer exposed Hyperparathyroidism, secondary renal Iron deficiency anemia Bilateral edema of lower extremity Chronic foot pain Charcot's joint of right foot Diabetes Non-smoker Myocardial infarct Hypertension TIA (transient ischemic attack) Amputation foot, bilat 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 Ulcer of left foot with necrosis of muscle Ulcer of left foot with muscle involvement without evidence of necrosis Anxiety and depression Diabetic infection of left foot Delayed wound healing Non-compliance Diabetic polyneuropathy Ischemic cardiomyopathy Obesity (BMI 30.0-34.9) Acquired varus deformity of left foot Acquired varus deformity of right foot Atherosclerosis of [place] coronary artery of [place] heart without angina pectoris Hemoglobin A1c greater than 9.0% NSTEMI (non-ST elevated myocardial infarction) (09/20/18) GERD (gastroesophageal reflux disease) HLD (hyperlipidemia) Back pain, chronic RLS (restless legs syndrome) Home Medications ?Medication ?Instructions ?Recorded ?Last Taken ?Type paroxetine HCl 20 mg tablet 20 mg PO DAILY DEPRESSION 07/07/21 04/07/22 History sennosides 8.6 mg-docusate sodium 2 tab PO BID PRN PRN Constipation 04/24/22 Unknown Rx 50 mg tablet (Stool #0 tabs Softener-Stimulant Laxative) ascorbic acid (vitamin C) 500 mg 500 mg PO BID supplement 05/05/22 Unknown History tablet (Vitamin C) pantoprazole 40 mg tablet,delayed 40 mg PO BIDCM GERD 07/19/22 Unknown History release gabapentin 100 mg capsule 100 mg PO .COMPLEX PRN pain 11/26/23 Unknown History amlodipine 5 mg tablet 5 mg PO DAILY bp 12/16/23 Unknown History calcitriol 0.5 mcg capsule 0.5 mcg PO .COMPLEX on dialysis 12/16/23 07/09/24 History calcium acetate(phosphat bind) 667 676 mg PO TID is on dialysis 12/16/23 Unknown History mg capsule folic acid 800 mcg tablet 0.8 mg PO DAILY supplement 12/16/23 Unknown History levothyroxine 25 mcg tablet 25 mcg PO DAILY thyroid 12/16/23 Unknown History nitroglycerin 0.4 mg sublingual 0.4 mg sublingual Q5M chest pain 12/16/23 Unknown History tablet (Nitrostat) aspirin 81 mg capsule 81 mg PO DAILY blood thinner #30 12/26/23 Unknown Rx caps atorvastatin 40 mg tablet 40 mg PO DAILY cholesterol 03/18/24 06/26/24 History carvedilol 25 mg tablet 25 mg PO BID blood pressure 03/18/24 Unknown History hydralazine 50 mg tablet 50 mg PO TID bp #0 tabs 05/21/24 Unknown Rx melatonin 3 mg tablet 3 mg PO QHS PRN PRN Insomnia #0 05/21/24 Unknown Rx tabs menthol 0.44 %-zinc oxide 20.6 % 1 applic topical BID skin care #0 05/21/24 Unknown Rx topical ointment (Calmoseptine) grams sucralfate 1 gram tablet 1 g PO TID@0700,1100,1600 05/21/24 Unknown Rx indigestion #0 tabs oxycodone 5 mg tablet 2.5 mg (1/2 x 5 mg) PO Q8H PRN 07/02/24 Unknown Rx pain 3 days #10 tabs acetaminophen 325 mg tablet 650 mg PO Q6H PRN fever or pain 07/09/24 Unknown History diphenhydramine HCl 25 mg capsule 12.5 mg (1/2 x 25 mg) PO Q6H PRN 07/10/24 Unknown Rx (Banophen) PRN Itching #0 caps ertapenem 1 gram solution for 1 g IV .MWF 35 days #15 ea 07/10/24 Unknown Rx injection levetiracetam 500 mg tablet 500 mg PO BID 30 days #60 tabs 07/10/24 Unknown Rx insulin lispro 100 unit/mL 10 unit subcut TIDAC blood sugar 09/13/24 Unknown History subcutaneous pen (Humalog KwikPen (U-100) Insulin) ipratropium 0.5 mg-albuterol 3 mg 3 ml inhalation Q4H 09/13/24 Unknown History (2.5 mg base)/3 mL nebulization soln lorazepam 0.5 mg tablet 0.5 mg PO Q12H PRN anxiety 09/13/24 Unknown History ondansetron HCl 4 mg tablet 4 mg PO Q4H PRN PRN nausea and 09/13/24 Unknown History vomiting sevelamer carbonate 800 mg tablet 1,600 mg PO TID 09/13/24 Unknown History Allergy/AdvReac Type Severity Reaction Status Date / Time oxycodone (From OxyContin) Allergy sob Verified 09/13/24 15:36 Penicillins Allergy swelling Verified 09/13/24 15:36 in throat vancomycin Allergy Itching Verified 09/13/24 15:36 metronidazole AdvReac Nausea Verified 09/13/24 15:36 Family History Mother Diabetes CVA (cerebral vascular accident) Brother CAD (coronary artery disease) CABG X 3 Cancer testicular Diabetes Brother CAD (coronary artery disease) CABG X3 Diabetes Brother CAD (coronary artery disease) Stents Diabetes Sister CAD (coronary artery disease) CABG x 3 CVA (cerebral vascular accident) Diabetes Surgical History History of History of foot surgery History of bilateral carpal tunnel release History of rotator cuff surgery History of coronary artery stent placement (12/31/20) Social History household members: none number of children: 2 current occupational status: disabled Smoking Status: Never smoker alcohol intake: never substance use type: does not use caffeine: Yes Type: carbonated beverages Number of servings: 2 ROS Constitutional Constitutional: Denies change in weight, chills or headache(s) Eyes Eyes: Denies acute decrease in peripheral vision, change in eye color or change in vision ENT HEENT: Denies bleeding gums, epistaxis or lip swelling Cardiovascular Cardiovascular: Denies abdominal edema, abdominal pain or chest pain at rest Respiratory/Chest Respiratory/Chest: Denies change in phlegm color, chest congestion or dyspnea Physical Exam Narrative Vascular: Dorsalis pedis posterior tibial pulses palpable 2 out of 4 to bilateral lower extremity. Skin atrophic noted bilaterally. Dermatologic: Full-thickness wound down the level of peroneal tendons on the lateral right ankle. Cavovarus deformity noted to the right lower extremity suggestive of loss of function of the peroneus brevis tendon transfer. Rectus alignment noted to left lower extremity with healed wounds. Neurologic: Light touch protective sensation absent to bilateral feet. Musculoskeletal: Rectus alignment left foot and ankle suggestive of successful peroneus brevis tendon transfer. Cavovarus right lower extremity suggestive of loss of function of peroneus brevis tendon transfer. No sign DVT bilaterally. Const alert and oriented x3 Lab / Micro Data 09/14/24 04:59 09/17/24 05:29 Labs: Laboratory Results - last 24 hr 09/16/24 12:53: POC Glucose 95 09/16/24 16:52: POC Glucose 176 H 09/16/24 21:11: POC Glucose 149 H 09/17/24 05:29: Sodium 133 L, Potassium 5.3 H, Chloride 101, Carbon Dioxide 25.0, Anion Gap 7, BUN 47 H, Creatinine 6.40 H, Estim Creat Clear Calc 9.69, Est GFR (MDRD) Af Amer 9 L, Est GFR (MDRD) Non-Af 7 L, BUN/Creatinine Ratio 7.3 L, G lucose 129 H, Calcium 9.2 09/17/24 06:42: POC Glucose 124 H Micro: Microbiology 09/14/24 07:50 Wound - Right Foot Gram Stain - Final 09/14/24 07:50 Wound - Right Foot Wound Culture - Final Staphylococcus auricularis Enterococcus faecalis 09/13/24 16:05 Blood Culture (Wb) - Venous Blood Culture - Preliminary No growth in 48 hours. 09/13/24 15:55 Blood Culture (Wb) - Venous Blood Culture - Preliminary No growth in 48 hours. 09/13/24 16:58 Blood Culture (Wb)#3 - Anticubital Right Blood Culture - Preliminary No growth in 48 hours.
[2024-09-17] MEDS: Calcium Acetate 667 MG Capsule PO ×2 (13:10→17:24)
[2024-09-17] MEDS: Ascorbic Acid 500 MG Tablet PO ×2 (13:12→21:32)
[2024-09-17] MEDS: hydrALAZINE 50 MG Tablet PO ×2 (13:18→21:29)
[2024-09-17] MEDS: levETIRAcetam 500 MG Tablet PO ×2 (13:22→21:29)
--- NOTE | 2024-09-17 13:25 | PCM.PN.ID ---
Physical Exam Narrative C/o increased pain in R foot, no fever Const alert; Negative for no apparent distress Resp normal air movement and clear to auscultation bilaterally Cardio regular rate and regular rhythm GI soft to palpation, non-tender and non-distended Skin Skin Narrative: reviewed wound photos ID ID: Route of nutrition/ use of supplements: [] Nutritional Intake: [] IV Site: [] Tirado Catheter: [] Assessment & Plan Assessment/Plan (1) ESRD (end stage renal disease) on dialysis: (2) VRE (vancomycin resistant enterococcus) culture positive: PLAN: Reviewed [facility] records. Recent admit with strep bacteremia, R ankle infection, and cdiff. On dapto for VRE in ucx. Wound cx with staph and enterococcus. Will consult podiatry for eval. Will follow
[2024-09-17] MEDS: Heparin Injection (Vial) 5,000 UNIT/ML VIAL 5000 UNIT SC ×2 (13:28→21:31)
[2024-09-17] MEDS: amLODIPine 5 MG Tablet PO (13:29)
--- NOTE | 2024-09-17 14:10 | RAD_ITS ---
STUDY: X-RAY - RIGHT ANKLE REASON FOR EXAM: Female, 59 years old. right ankle infection TECHNIQUE: 3 view(s) of the ankle. COMPARISON: 06/27/2024 FINDINGS: Normal visualized distal tibia and fibula. Chronic avulsion fracture of the lateral malleolus and fibula. Normal tibiotalar articulation and ankle mortise. Normal visualized talus and calcaneus. The visualized subtalar, talonavicular, calcaneocuboid and tarsal articulations are normal. The soft tissue structures are unremarkable. No bony destruction to suggest osteomyelitis. RAD/Ankle min 3 Views IMPRESSION: No radiographic evidence of osteomyelitis. Electronically Signed: Scot Penny MD at 8:54 EST ,
--- NOTE | 2024-09-17 15:19 | CHAPLAIN ---
Type of Pastoral Visit _x__ Initial Visit ___ Follow-up Visit ___ On-call Visit ___ General Patient Visit ___ Spiritual Assessment ___ Family Conference ___ Bereavement ___ Rapid Response ___ Code Blue ___ Other (describe below) Pastoral Care Referral From _x__ Patient ___ Family ___ Nurse ___ Physician ___ Metal Storage Worker ___ Radar Repairer ___ Other (describe below) Sacrament/Intervention _x__ Active listening ___ Anointing ___ Amish ___ Bereavement ___ Communion ___ Stacey exploration ___ _x__ Life review _x__ Prayer ___ Reconciliation ___ Sacrament of Sick _x__ Supportive presence ___ Wedding ___ Other (describe below) Pastoral Comments there was much activity going in the patient's room at this time with vitals, medications, and repositioning in bed, but when the patient was offered support she welcomed sitting beside you and offering time to talk and pray; pt has had many health issues and for some reason God is keeping me here and He is my greatest support and hope; pt expresses concern that her spouse is [place] of the country when I need him most; pt has been in a SNF and anticipates going back which she states is okay; pt wants prayer and that is given
--- NOTE | 2024-09-17 16:50 | CASEMGMT ---
Social Work- SW provided collaboration with ID and DCA regarding d/c planning. SW advised that podiatry consult with determine IV vs PO at d/c. SW will continue to provide updates to DCA to determine if precert is needed. ERIN Johnson
[2024-09-17] MEDS: Carvedilol 25 MG Tablet PO (17:23)
[2024-09-17] MEDS: Insulin Lispro 100 UNIT/ML INSULN.PEN SC (17:25)
[2024-09-17] MEDS: LORazepam 0.5 MG Tablet PO (17:32)
[2024-09-17 17:58] LABS: Bedside Glucose 162 mg/dL (74-106)
[2024-09-17 17:58] LABS: Bedside Glucose 102 mg/dL (74-106)
[2024-09-17] MEDS: MELATONIN 3 MG TABLET PO (21:27)
[2024-09-17 22:29] LABS: Bedside Glucose 158 mg/dL (74-106)
[2024-09-17] MEDS: NORMAL SALINE 0.9% IV (22:39)
[2024-09-17] MEDS: DiphenhydrAMINE 12.5 MG/5 ML UDC PO (22:39)
[2024-09-17] MEDS: DAPTOMYCIN IV (22:39)
[2024-09-18 05:41] VITALS: BMI 26.4
[2024-09-18 06:55] VITALS: PULSE 80
[2024-09-18] MEDS: Levothyroxine 25 MCG TABLET PO (06:55)
[2024-09-18] MEDS: hydrALAZINE 50 MG Tablet PO ×3 (06:55→21:37)
[2024-09-18] MEDS: Sucralfate 1 GM Tablet PO ×3 (06:55→17:44)
[2024-09-18] MEDS: oxyCODONE 5 MG Tablet 2.5 MG PO ×2 (07:03→17:53)
[2024-09-18 07:14] LABS: Bedside Glucose 112 mg/dL (74-106)
--- NOTE | 2024-09-18 07:50 | PN.HOSP_ITS ---
Reason for Visit Reason for Visit: Diagnoses Hyperkalemia (09/13/24) Cellulitis of right lower limb (09/13/24) Non-pressure chronic ulcer of other part of right foot with necrosis of muscle (09/13/24) End stage renal disease (09/13/24) Acute cystitis without hematuria (09/13/24) Urinary tract infection, site not specified (09/13/24) Generalized abdominal pain (09/13/24) Carrier of other specified bacterial diseases (09/13/24) Dependence on renal dialysis (09/13/24) Subjective Subjective Feeling well. No new complaints. Objective Data Objective Data Vital Signs: Vital Signs Temp Pulse Resp BP Pulse Ox O2 Del Method O2 Flow Rate 36.8 C 80 15 132/45 H 95 Nasal Cannula 2 09/17/24 16:00 09/18/24 06:55 09/17/24 22:00 09/17/24 21:29 09/17/24 16:00 09/18/24 04:00 09/18/24 04:00 Oxygen Flow Rate (L/min) 2 Oxygen Delivery Method Nasal Cannula Weight: 74.8 kg Body Mass Index (BMI) 26.4 Intake & Output: Intake and Output for Last 24 Hours 09/16/24 09/17/24 09/18/24 23:59 23:59 23:59 Intake Total 1200 / 1350 1116 / 1116 200 / 200 Output Total 2670 / 2670 Balance 1190 / 1340 -1554 / -1554 200 / 200 Lab / Micro Data 09/18/24 07:44 09/17/24 05:29 Labs: Laboratory Results - last 24 hr 09/17/24 13:23: POC Glucose 102 09/17/24 17:17: POC Glucose 162 H 09/17/24 21:39: POC Glucose 158 H 09/18/24 06:51: POC Glucose 112 H Micro: Microbiology 09/14/24 07:50 Wound - Right Foot Gram Stain - Final 09/14/24 07:50 Wound - Right Foot Wound Culture - Final Staphylococcus auricularis Enterococcus faecalis 09/13/24 16:05 Blood Culture (Wb) - Venous Blood Culture - Preliminary No growth in 48 hours. 09/13/24 15:55 Blood Culture (Wb) - Venous Blood Culture - Preliminary No growth in 48 hours. 09/13/24 16:58 Blood Culture (Wb)#3 - Anticubital Right Blood Culture - Preliminary No growth in 48 hours. 09/13/24 16:18 Urine, Clean Catch Urine Culture - Final Culture exhibits no growth. Physical Exam Const Constitutional Narrative: up at the side of her bed on her phone. HEENT head/scalp atraumatic and moist oral mucous membranes Resp normal respiratory effort, no retractions, no use of accessory muscles and clear to auscultation bilaterally Cardio regular rate, regular rhythm, S1 normal heart sound and S2 normal heart sound GI normal to inspection, nondistended, normoactive bowel sounds, soft to palpation and non-tender Assessment & Plan Assessment/Plan (1) VRE (vancomycin resistant enterococcus) culture positive: (2) Acute cystitis: PLAN: Plan Acute cystitis with VRE * Infectious disease following. UA on admit with 100 leukocyte esterase, negative nitrites, 1+ bacteria. Urine culture at [facility] reportedly grew VRE. Urine culture from 09/13 negative (not positive as mentioned in note on 09/17). * Blood cultures with no growth at 48 hours. * Continue IV daptomycin for now and appreciate final ID recs tomorrow in preparation for discharge back to SNF tomorrow. Recent complicated admission at outside hospital with recurrent diabetic foot infection * Noted to have recent complicated hospitalization at [facility] in [place]. Hospitalization was complicated by strep bacteremia, right ankle infection and C. difficile. Reportedly completed 8 days of p.o. vancomycin while there and completed the last 2 days of treatment at [facility]. Per ID, if patient does develop recurrent diarrhea would plan to treat with p.o. vancomycin but patient has not had any diarrhea since admission. * Wound cx showing Staph auricularis and E faecalis * Podiatry consulted. Plan for operative tmt RLE with debridement of ankle wound with application of graft with deep cultures on 09/19 ESRD on HD * Nephrology following. On HD Tuesday Acute on chronic debility * PT/OT/case management following. Was recently discharged to [facility] nursing facility after hospitalization at [facility]. If patient needs IV antibiotics, would need pre-CERT to return to skilled level of care there. If not, can return to long-term care there. Chronic medical conditions: * Chronic anemia: Hemoglobin stable at baseline around 8-9. * Type 2 diabetes mellitus: Treating with sliding scale insulin with meals while inpatient. stable. * CAD with stenting, hypertension, hyperlipidemia: Continue home aspirin, statin, amlodipine, Coreg, hydralazine. * Seizure disorder: Continue home Keppra. * Hypothyroidism: Continue home Synthroid. * Chronic back pain: Continue home oxycodone as needed. * GERD: Continue home PPI and sucralfate. * Depression with anxiety: Stable. Continue home Paxil and Ativan as needed. DVT prophylaxis: Heparin subcu CODE STATUS: Full code, verified Charges/Coding Visit Charges Inpatient E&M: 76292 Subs Hosp L2
[2024-09-18 07:55] LABS: Absolute Lymphocyte Count 0.96 X10^3/uL (0.83-4.51); Absolute Neutrophil Count 3.4 X10^3/uL (2.0-7.7); Basophil# 0.04 X10^3/uL; Basophil% 0.8 % (0-1); Eosinophil# 0.14 X10^3/uL; Eosinophils% 2.7 % (0-5); Hematocrit 29.6 % (37-47); Hemoglobin 9.1 g/dL (12.0-15.0); Lymphocyte # 0.96 X10^3/ul (0.83-4.51); Lymphocyte % 18.5 % (19-41); Mean Corp Hgb Conc 30.7 g/dL (32-36); Mean Corpuscular Volume 100.7 fL (81-99); Mean Platelet Vol. 9.4 fl (6.2-12.0); Monocyte# 0.64 X10^3/uL; Monocyte% 12.3 % (0-10); NRBC Flagged by Analyzer 0 % (0-5); Neutrophil # 3.38 X10^3/uL (2.7-7.7); Neutrophil % 64.9 % (47-70); Platelet Count 374 K/mm3 (150-450); RBC Distribution Width CV 17.2 % (11.6-14.6); RBC Distribution Width SD 62.3 fl (35.1-43.9); Red Blood Count 2.94 M/mm3 (4.2-5.4); White Blood Count 5.2 K/mm3 (4.4-11.0)
--- NOTE | 2024-09-18 09:25 | CASEMGMT ---
Discharge Planning Updates sent via [facility] to [facility]. Rekha Moore DC Planning Asst.
[2024-09-18] MEDS: Calcium Acetate 667 MG Capsule PO ×3 (09:27→17:48)
[2024-09-18] MEDS: Folic Acid 1 MG Tablet PO (09:27)
[2024-09-18] MEDS: Aspirin 81 MG TAB.CHEW PO (09:27)
[2024-09-18] MEDS: Glucerna Shake 120 ML LIQUID PO ×3 (09:27→17:45)
[2024-09-18] MEDS: Carvedilol 25 MG Tablet PO ×2 (09:27→17:45)
[2024-09-18] MEDS: Heparin Injection (Vial) 5,000 UNIT/ML VIAL 5000 UNIT SC ×2 (09:28→21:37)
[2024-09-18] MEDS: Pantoprazole Sodium 40 MG Tablet PO ×2 (09:28→17:46)
[2024-09-18] MEDS: Lactobacillis Acidophilus 1 CAP PO ×4 (09:28→21:37)
[2024-09-18] MEDS: SEVELAMER CARBONATE 800 MG TABLET 1600 MG PO ×3 (09:28→17:48)
[2024-09-18] MEDS: levETIRAcetam 500 MG Tablet PO ×2 (09:29→21:37)
[2024-09-18] MEDS: Menthol/Lanolin/Calamine/Znox 113 GM Tube 1 APPLIC TOPICAL ×2 (09:29→21:37)
[2024-09-18] MEDS: Ascorbic Acid 500 MG Tablet PO ×2 (09:30→21:37)
[2024-09-18] MEDS: amLODIPine 5 MG Tablet PO (09:30)
[2024-09-18] MEDS: Paroxetine 20 MG Tablet PO (09:30)
[2024-09-18] MEDS: LORazepam 0.5 MG Tablet PO ×2 (09:36→21:36)
[2024-09-18] MEDS: Gabapentin 100 MG Capsule PO (09:36)
--- NOTE | 2024-09-18 09:50 | WOUNDNOTE ---
wound photo: right lateral foot/ankle
[2024-09-18 10:00] VITALS: BP 138/65; PULSE 76; RESP 16; TEMP 36.8; O2SAT 96
--- NOTE | 2024-09-18 10:02 | PCM.PN.ID ---
Physical Exam Narrative Pain slightly improved, no fever Const alert and no apparent distress General Appearance: cooperative Resp normal air movement and clear to auscultation bilaterally Cardio regular rate and regular rhythm GI soft to palpation, non-tender and non-distended Skin Skin Narrative: R foot wrapped ID ID: Route of nutrition/ use of supplements: [] Nutritional Intake: [] IV Site: [] Tirado Catheter: [] Assessment & Plan Assessment/Plan (1) ESRD (end stage renal disease) on dialysis: (2) VRE (vancomycin resistant enterococcus) culture positive: PLAN: Reviewed [facility] records. Recent admit with strep bacteremia, R ankle infection, and cdiff. On dapto for VRE in ucx. Wound cx with staph and enterococcus. OR with Dr. Julian planned for tomorrow. Will follow
--- NOTE | 2024-09-18 10:52 | CASEMGMT ---
Social Work- SW received a call from Eliel Aguillon. Henna reports that pt has been reported by SNF SW to be very challenging at SNF; screaming, lying, berating nurses. Henna reports that she has been discussing AL with pt, as pt remains fixated on an end goal of returning home, however, due to physical and mental limitations, would be unsafe at this time to do so. Henna reports that she has been working with pt for two weeks. Henna requests a fax at d/c to: [phone]. Henna cell number is: [phone]. Henna reports that she shared with SNF that pt has transportation through insurance for appointments if SNF has a shortage of internal transportation options. SW remains available to follow. ERIN Johnson
[2024-09-18 12:25] LABS: Bedside Glucose 136 mg/dL (74-106)
[2024-09-18 12:29] VITALS: PULSE 78
[2024-09-18 16:00] VITALS: BP 105/49; PULSE 73; RESP 18; TEMP 36.7; O2SAT 95
--- NOTE | 2024-09-18 16:11 | PCM.PN.REN ---
Subjective Subjective Following for ESRD. Patient is sleepy. However, she denies chest pain or shortness of breath. There is no nausea. Objective Data Objective Data Vital Signs: Vital Signs Temp Pulse Resp BP Pulse Ox O2 Del Method O2 Flow Rate 98.3 F 78 15 132/45 H 95 Nasal Cannula 2 09/17/24 16:00 09/18/24 12:29 09/17/24 22:00 09/17/24 21:29 09/17/24 16:00 09/18/24 13:05 09/18/24 13:05 Oxygen Flow Rate (L/min) 2 Oxygen Delivery Method Nasal Cannula Weight: 74.8 kg Body Mass Index (BMI) 26.4 Intake & Output: Intake and Output for Last 24 Hours 09/16/24 09/17/24 09/18/24 23:59 23:59 23:59 Intake Total 1200 / 1350 1116 / 1116 200 / 200 Output Total 2670 / 2670 Balance 1190 / 1340 -1554 / -1554 200 / 200 Lab / Micro Data 09/18/24 07:44 09/17/24 05:29 Labs: Laboratory Results - last 24 hr 09/17/24 13:23: POC Glucose 102 09/17/24 17:17: POC Glucose 162 H 09/17/24 21:39: POC Glucose 158 H 09/18/24 06:51: POC Glucose 112 H 09/18/24 07:44: WBC 5.2, RBC 2.94 L, Hgb 9.1 L, Hct 29.6 L, MCV 100.7 H, MCH 31.0, MCHC 30.7 L, RDW Std Deviation 62.3 H, RDW Coeff of Fior 17.2 H, Plt Count 374, MPV 9.4, Immature Gran % (Auto) 0.800, Neut % (Auto) 64.9, Lymph % (Auto) 18.5 L, [place] % (Auto) 12.3 H, Eos % (Auto) 2.7, Baso % (Auto) 0.8, Absolute Neuts (auto) 3.4, Absolute Lymphs (auto) 0.96, Nucleated RBC % 0 09/18/24 11:28: POC Glucose 136 H Micro: Microbiology 09/17/24 Unknown Wound - Right Foot Gram Stain - Final 09/17/24 Unknown Wound - Right Foot Wound Culture - Preliminary No growth-Final to follow 09/14/24 07:50 Wound - Right Foot Gram Stain - Final 09/14/24 07:50 Wound - Right Foot Wound Culture - Final Staphylococcus auricularis Enterococcus faecalis 09/13/24 16:05 Blood Culture (Wb) - Venous Blood Culture - Preliminary No growth in 48 hours. 09/13/24 15:55 Blood Culture (Wb) - Venous Blood Culture - Preliminary No growth in 48 hours. 09/13/24 16:58 Blood Culture (Wb)#3 - Anticubital Right Blood Culture - Preliminary No growth in 48 hours. 09/13/24 16:18 Urine, Clean Catch Urine Culture - Final Culture exhibits no growth. Radiography Diagnostic Testing: Radiology Impression Ankle X-Ray 09/17/24 14:10 IMPRESSION: No radiographic evidence of osteomyelitis. Electronically Signed: Scot Penny MD at 8:54 EST , Physical Exam Narrative General appearance: Ill-appearing. NAD. HEENT: Normocephalic, atraumatic. PERRLA, EOMI. Mucous membrane moist. Cardiovascular: Normal S1, S2. No rubs or gallops. Lungs: Clear to auscultation anteriorly. Abdomen: Normal bowel sounds, soft, nontender, no guarding/rebound. Extremities: No clubbing, cyanosis, or edema. Const alert, oriented x3 and no apparent distress General Appearance: well developed Orientation / Consciousness: oriented to person, oriented to place and oriented to time HEENT normocephalic Neck no lymphadenopathy Resp no use of accessory muscles Auscultation: diminished lung sounds Cardio Cardio Narrative: distant GI Auscultation: normoactive bowel sounds Skin no rashes or lesions noted Neuro Sensorium / Orientation: awake and alert Assessment & Plan Assessment/Plan (1) ESRD (end stage renal disease) on dialysis: (2) Hyperkalemia: (3) Hypertension: (4) Secondary hyperparathyroidism: PLAN: Plan Impression/Plan: The patient is a 59-year-old female with past history of ESRD, type 2 diabetes mellitus, hypertension, CAD, seizure disorder, hypothyroidism, hyperlipidemia, GERD, major depressive disorder. The patient is admitted to the hospital on 09/13/2024 for treatment of VRE UTI. Patient is also being treated for recurrent diabetic foot infection. There is plan for right lateral ankle wound debridement with application of graft on 09/19/2024. Nephrology is following for ESRD and dialysis management. ESRD. Patient dialyzes on MWF schedule at [facility]. Patient is followed at outpatient dialysis center by Dr. Anderson. We will continue dialysis on MWF schedule while patient is admitted to the hospital. The patient tolerated dialysis well yesterday on 09/17/2024. There is no need for dialysis today. Next dialysis is planned for 09/19/2024. Hyperkalemia. The patient has mild hyperkalemia with potassium level of 5.3 mmol/L on 09/17/2024. Hyperkalemia secondary to ESRD. We used 2K dialysate with hemodialysis on 09/17/2024. Potassium level should improve with hemodialysis. Recheck potassium level tomorrow. Hypertension. BP is reasonably controlled. Continue current target weight with dialysis along with antihypertensives. Secondary hyperparathyroidism. Patient is on calcitriol on MWF. Continue sevelamer with meals. Will check calcium/phosphorus levels tomorrow. Nephrology plan is discussed with Dr. Prado.
[2024-09-18 18:25] LABS: Bedside Glucose 142 mg/dL (74-106)
[2024-09-18 20:23] VITALS: BP 155/75; PULSE 74; RESP 16; TEMP 36.8; O2SAT 94
[2024-09-18 21:37] VITALS: BP 155/75; PULSE 74
[2024-09-18] MEDS: Acetaminophen 325 MG Tablet 650 MG PO (21:37)
[2024-09-18 22:03] LABS: Bedside Glucose 128 mg/dL (74-106)
[2024-09-19] VITALS (22 sets, daily range): BP systolic 113–182; BP diastolic 45–88; PULSE 61–79; RESP 15–18; TEMP 36.6–37.3; O2SAT 92–98; BMI 26.4; BMI 25.6
[2024-09-19] MEDS: oxyCODONE 5 MG Tablet 2.5 MG PO ×3 (04:36→21:54)
[2024-09-19] MEDS: hydrALAZINE 50 MG Tablet PO ×2 (04:37→21:54)
[2024-09-19] MEDS: Sucralfate 1 GM Tablet PO ×2 (04:37→16:52)
[2024-09-19] MEDS: Levothyroxine 25 MCG TABLET PO (04:37)
[2024-09-19] MEDS: Acetaminophen 325 MG Tablet 650 MG PO ×2 (04:38→21:53)
[2024-09-19 06:25] LABS: Bedside Glucose 115 mg/dL (74-106)
[2024-09-19] MEDS: 0.9% Saline Lock 10 ML Syringe IV ×3 (06:31→11:46)
[2024-09-19] MEDS: Ondansetron 4 MG/2 ML Vial IV (06:31)
--- NOTE | 2024-09-19 07:13 | PN.HOSP_ITS ---
Reason for Visit Reason for Visit: Diagnoses Hyperkalemia (09/13/24) Essential (primary) hypertension (09/13/24) Cellulitis of right lower limb (09/13/24) Non-pressure chronic ulcer of other part of right foot with necrosis of muscle (09/13/24) End stage renal disease (09/13/24) Secondary hyperparathyroidism of renal origin (09/13/24) Acute cystitis without hematuria (09/13/24) Urinary tract infection, site not specified (09/13/24) Generalized abdominal pain (09/13/24) Carrier of other specified bacterial diseases (09/13/24) Dependence on renal dialysis (09/13/24) Subjective Subjective Feeling well. Objective Data Objective Data Vital Signs: Vital Signs Temp Pulse Resp BP Pulse Ox O2 Del Method O2 Flow Rate 36.6 C 74 16 116/88 H 96 Room Air 2 09/19/24 04:34 09/19/24 04:37 09/19/24 04:34 09/19/24 04:37 09/19/24 04:34 09/19/24 04:34 09/19/24 02:36 Oxygen Flow Rate (L/min) 2 Oxygen Delivery Method Room Air Weight: 74.8 kg Body Mass Index (BMI) 26.4 Intake & Output: Intake and Output for Last 24 Hours 09/17/24 09/18/24 09/19/24 23:59 23:59 23:59 Intake Total 1116 / 1116 200 / 200 Output Total 2670 / 2670 Balance -1554 / -1554 200 / 200 Lab / Micro Data 09/19/24 07:50 09/19/24 07:50 Labs: Laboratory Results - last 24 hr 09/18/24 06:51: POC Glucose 112 H 09/18/24 07:44: WBC 5.2, RBC 2.94 L, Hgb 9.1 L, Hct 29.6 L, MCV 100.7 H, MCH 31.0, MCHC 30.7 L, RDW Std Deviation 62.3 H, RDW Coeff of Fior 17.2 H, Plt Count 374, MPV 9.4, Immature Gran % (Auto) 0.800, Neut % (Auto) 64.9, Lymph % (Auto) 18.5 L, [place] % (Auto) 12.3 H, Eos % (Auto) 2.7, Baso % (Auto) 0.8, Absolute Neuts (auto) 3.4, Absolute Lymphs (auto) 0.96, Nucleated RBC % 0 09/18/24 11:28: POC Glucose 136 H 09/18/24 17:43: POC Glucose 142 H 09/18/24 21:36: POC Glucose 128 H 09/19/24 05:50: POC Glucose 115 H Micro: Microbiology 09/17/24 Unknown Wound - Right Foot Gram Stain - Final 09/17/24 Unknown Wound - Right Foot Wound Culture - Preliminary No growth-Final to follow 09/14/24 07:50 Wound - Right Foot Gram Stain - Final 09/14/24 07:50 Wound - Right Foot Wound Culture - Final Staphylococcus auricularis Enterococcus faecalis 09/13/24 16:05 Blood Culture (Wb) - Venous Blood Culture - Preliminary No growth in 48 hours. 09/13/24 15:55 Blood Culture (Wb) - Venous Blood Culture - Preliminary No growth in 48 hours. 09/13/24 16:58 Blood Culture (Wb)#3 - Anticubital Right Blood Culture - Preliminary No growth in 48 hours. 09/13/24 16:18 Urine, Clean Catch Urine Culture - Final Culture exhibits no growth. Radiography Diagnostic Testing: Radiology Impression Ankle X-Ray 09/17/24 14:10 IMPRESSION: No radiographic evidence of osteomyelitis. Electronically Signed: Scot Penny MD at 8:54 EST , Physical Exam Const Constitutional Narrative: sleepy. seen while on HD. HEENT head/scalp atraumatic and moist oral mucous membranes Assessment & Plan Assessment/Plan (1) VRE (vancomycin resistant enterococcus) culture positive: (2) Acute cystitis: PLAN: Plan Acute cystitis with VRE * Infectious disease following. UA on admit with 100 leukocyte esterase, negative nitrites, 1+ bacteria. Urine culture at [facility] reportedly grew VRE. Urine culture from 09/13 negative (not positive as mentioned in note on 09/17). * Blood cultures with no growth at 48 hours. * Continue IV daptomycin for now and appreciate final ID recs tomorrow in preparation for discharge back to SNF tomorrow. Recent complicated admission at outside hospital with recurrent diabetic foot infection * Noted to have recent complicated hospitalization at [facility] in [place]. Hospitalization was complicated by strep bacteremia, right ankle infection and C. difficile. Reportedly completed 8 days of p.o. vancomycin while there and completed the last 2 days of treatment at [facility]. Per ID, if patient does develop recurrent diarrhea would plan to treat with p.o. vancomycin but patient has not had any diarrhea since admission. * Wound cx showing Staph auricularis and E faecalis * Podiatry consulted. 09/19, pt underwent debridement down to and including level of muscle. ESRD on HD * Nephrology following. On HD Tuesday Acute on chronic debility * PT/OT/case management following. Was recently discharged to [facility] nursing [facility] after hospitalization at [facility]. If patient needs IV antibiotics, would need pre-CERT to return to skilled level of care there. If not, can return to long-term care there. Chronic medical conditions: * Chronic anemia: Hemoglobin stable at baseline around 8-9. * Type 2 diabetes mellitus: Treating with sliding scale insulin with meals while inpatient. stable. * CAD with stenting, hypertension, hyperlipidemia: Continue home aspirin, statin, amlodipine, Coreg, hydralazine. * Seizure disorder: Continue home Keppra. * Hypothyroidism: Continue home Synthroid. * Chronic back pain: Continue home oxycodone as needed. * GERD: Continue home PPI and sucralfate. * Depression with anxiety: Stable. Continue home Paxil and Ativan as needed. DVT prophylaxis: Heparin subcu CODE STATUS: Full code, verified Charges/Coding Visit Charges Inpatient E&M: 85023 Subs Hosp L1
--- NOTE | 2024-09-19 08:09 | WOUNDNOTE ---
Pt going to OR today. will leave dressing in place.
[2024-09-19] MEDS: 0.9% Normal Saline 1,000 ML IV.SOLN. 1000 ML OPERA.SITE (08:10)
[2024-09-19] MEDS: PureFlow B 2K Dialysis Soln 1 BAG 6 BAG PF (08:10)
[2024-09-19 08:25] LABS: Absolute Lymphocyte Count 0.91 X10^3/uL (0.83-4.51); Absolute Neutrophil Count 4.7 X10^3/uL (2.0-7.7); Basophil# 0.04 X10^3/uL; Basophil% 0.6 % (0-1); Hematocrit 25.5 % (37-47); Hemoglobin 7.8 g/dL (12.0-15.0); Lymphocyte # 0.91 X10^3/ul (0.83-4.51); Lymphocyte % 13.7 % (19-41); Mean Corp Hgb Conc 30.6 g/dL (32-36); Mean Corpuscular Hgb 30.6 pg (27.0-32.0); Mean Platelet Vol. 9.6 fl (6.2-12.0); Monocyte# 0.74 X10^3/uL; Monocyte% 11.1 % (0-10); NRBC Flagged by Analyzer 0 % (0-5); Neutrophil % 70.7 % (47-70); Platelet Count 425 K/mm3 (150-450); RBC Distribution Width CV 17.1 % (11.6-14.6); RBC Distribution Width SD 62.4 fl (35.1-43.9); Red Blood Count 2.55 M/mm3 (4.2-5.4); White Blood Count 6.7 K/mm3 (4.4-11.0)
[2024-09-19 08:44] LABS: Anion Gap 7 (5-15); BUN 42 mg/dL (7-18); BUN/Creat Ratio 7.4 RATIO (10-20); Chloride 103 mmol/L (98-107); Creatinine, Serum 5.66 mg/dL (0.55-1.02); EST Glomerular Filtration Rate 8 mL/min (>60); Est Glom Filt Rate - Afr Amer 10 mL/min (>60); Estimated Creatinine Clearance 11.07 ml/min; Glucose 99 mg/dL (74-106); Potassium 4.9 mmol/L (3.5-5.1); Sodium Level 135 mmol/L (136-145)
[2024-09-19 09:13] LABS: Phosphorus 2.1 mg/dL (2.5-4.9)
--- NOTE | 2024-09-19 10:56 | PCM.PN.REN ---
Subjective Subjective Following for ESRD. The patient is seen during hemodialysis treatment. She is sleepy but awakens to voice. She denies chest pain, shortness of breath, or nausea. Objective Data Objective Data Vital Signs: Vital Signs Temp Pulse Resp BP Pulse Ox O2 Del Method O2 Flow Rate 98.7 F 71 15 143/58 H 98 Nasal Cannula 2 09/19/24 07:46 09/19/24 10:46 09/19/24 10:46 09/19/24 10:46 09/19/24 09:46 09/19/24 10:46 09/19/24 10:46 Oxygen Flow Rate (L/min) 2 Oxygen Delivery Method Nasal Cannula Weight: 74.8 kg Body Mass Index (BMI) 26.4 Intake & Output: Intake and Output for Last 24 Hours 09/17/24 09/18/24 09/19/24 23:59 23:59 23:59 Intake Total 1116 / 1116 200 / 200 Output Total 2670 / 2670 Balance -1554 / -1554 200 / 200 Lab / Micro Data 09/19/24 07:50 09/19/24 07:50 Labs: Laboratory Results - last 24 hr 09/18/24 11:28: POC Glucose 136 H 09/18/24 17:43: POC Glucose 142 H 09/18/24 21:36: POC Glucose 128 H 09/19/24 05:50: POC Glucose 115 H 09/19/24 07:50: WBC 6.7, RBC 2.55 L, Hgb 7.8 L, Hct 25.5 L, MCV 100.0 H, MCH 30.6, MCHC 30.6 L, RDW Std Deviation 62.4 H, RDW Coeff of Fior 17.1 H, Plt Count 425, MPV 9.6, Immature Gran % (Auto) 0.900, Neut % (Auto) 70.7 H, Lymph % (Auto) 13.7 L, [place] % (Auto) 11.1 H, Eos % (Auto) 3.0, Baso % (Auto) 0.6, Absolute Neuts (auto) 4.7, Absolute Lymphs (auto) 0.91, Nucleated RBC % 0, Sodium 135 L, Potassium 4.9, Chloride 103, Carbon Dioxide 25.0, Anion Gap 7, BUN 42 H, Creatinine 5.66 H, Estim Creat Clear Calc 11.07, Est GFR (MDRD) Af Amer 10 L, Est GFR (MDRD) Non-Af 8 L, BUN/Creatinine Ratio 7.4 L, Glucose 99, Calcium 9.0, Phosphorus 2.1 L Micro: Microbiology 09/13/24 16:05 Blood Culture (Wb) - Venous Blood Culture - Final No growth in 5 days. 09/13/24 15:55 Blood Culture (Wb) - Venous Blood Culture - Final No growth in 5 days. 09/13/24 16:58 Blood Culture (Wb)#3 - Anticubital Right Blood Culture - Final No growth in 5 days. 09/17/24 Unknown Wound - Right Foot Gram Stain - Final 09/17/24 Unknown Wound - Right Foot Wound Culture - Preliminary No growth-Final to follow 09/14/24 07:50 Wound - Right Foot Gram Stain - Final 09/14/24 07:50 Wound - Right Foot Wound Culture - Final Staphylococcus auricularis Enterococcus faecalis 09/13/24 16:18 Urine, Clean Catch Urine Culture - Final Culture exhibits no growth. Physical Exam Narrative General appearance: Ill-appearing. NAD. HEENT: Normocephalic, atraumatic. PERRLA, EOMI. Mucous membrane moist. Cardiovascular: Normal S1, S2. No rubs or gallops. Lungs: Clear to auscultation anteriorly. Abdomen: Normal bowel sounds, soft, nontender, no guarding/rebound. Extremities: No clubbing, cyanosis, or edema. Const alert, oriented x3 and no apparent distress General Appearance: well developed Orientation / Consciousness: oriented to person, oriented to place and oriented to time HEENT normocephalic Neck no lymphadenopathy Resp no use of accessory muscles Auscultation: diminished lung sounds Cardio Cardio Narrative: distant GI Auscultation: normoactive bowel sounds Skin no rashes or lesions noted Neuro Sensorium / Orientation: awake and alert Assessment & Plan Assessment/Plan (1) ESRD (end stage renal disease) on dialysis: (2) Hyperkalemia: (3) Hypertension: (4) Secondary hyperparathyroidism: PLAN: Plan Impression/Plan: The patient is a 59-year-old female with past history of ESRD, type 2 diabetes mellitus, hypertension, CAD, seizure disorder, hypothyroidism, hyperlipidemia, GERD, major depressive disorder. The patient is admitted to the hospital on 09/13/2024 for treatment of VRE UTI. Patient is also being treated for recurrent diabetic foot infection. There is plan for right lateral ankle wound debridement with application of graft on 09/19/2024. Nephrology is following for ESRD and dialysis management. ESRD. Patient dialyzes on MWF schedule at [facility]. Patient is followed at outpatient dialysis center by Dr. Anderson. We will continue dialysis on MWF schedule while patient is admitted to the hospital. The patient is seen during hemodialysis treatment today. She is tolerating dialysis well. We are using 2K dialysate. We are planning on ultrafiltration of 2.0-2.5 L. Next dialysis is planned for 09/21/2024. Hyperkalemia. The patient has mild hyperkalemia with potassium level of 5.3 mmol/L on 09/17/2024. Hyperkalemia secondary to ESRD. We reducing 2K dialysate with hemodialysis. Potassium level has improved and should remain stable with consistent hemodialysis. Recheck potassium level tomorrow. Hypertension. BP is reasonably controlled. Continue current target weight with dialysis along with antihypertensives. Secondary hyperparathyroidism. Patient is on calcitriol on MWF. Phosphorus is only 2.1 mg/dL likely because of poor oral intake. Will stop sevelamer for now Will recheck calcium/phosphorus levels in a few days. Nephrology plan is discussed with Dr. Prado.
[2024-09-19] MEDS: Heparin 10,000 UNITS/10 ML Vial IV (11:47)
[2024-09-19] MEDS: Carvedilol 25 MG Tablet PO ×2 (12:13→16:57)
[2024-09-19] MEDS: levETIRAcetam 500 MG Tablet PO ×2 (12:14→21:55)
[2024-09-19] MEDS: amLODIPine 5 MG Tablet PO (12:14)
--- NOTE | 2024-09-19 12:30 | NURSING ---
Pt transported to surgery.
[2024-09-19] MEDS: Menthol/Lanolin/Calamine/Znox 113 GM Tube 1 APPLIC TOPICAL ×2 (12:42→21:56)
--- NOTE | 2024-09-19 13:05 | PCM.PRE.AN2 ---
ASA Classification* ASA Classification ASA Classification: 3 Assessment & Plan Anesthesia* Anesthesia Assessment Anesthesia Assessment: Discussed sedation and/or anesthesia options, risks, benefits, and alternatives with patient/parents/legal guardian/POA. Questions invited. The patient/parents/legal guardian/POA seems to understand and agrees to proceed with anesthesia plan. Reviewed the physical assessment, medical history, allergy history and patient home medications list prior to surgery/procedure/anesthetic and documented any changes. Performed airway and anesthesia risk assessments. Anesthesia Type Anesthesia Type: MAC (CADS, 2 stents per patient. only on O2 due to pain meds per patient) Anesthesia Focused Assessment* Temperature: 98.3 F Pulse Rate: 79 Blood Pressure: 147/61 Respiratory Rate: 15 Pulse Ox: 97 Airway Assessment Mouth opens: >3 cm Mallampati Score: II Focused Labs Anesthesia Preop lab: CBC WBC 6.7 K/mm3 (4.4-11.0) 09/19/24 07:50 RBC 2.55 M/mm3 (4.2-5.4) L 09/19/24 07:50 Hgb 7.8 g/dL (12.0-15.0) L 09/19/24 07:50 Hct 25.5 % (37-47) L 09/19/24 07:50 Plt Count 425 K/mm3 (150-450) 09/19/24 07:50 CHEMISTRY Potassium 4.9 mmol/L (3.5-5.1) 09/19/24 07:50 Sodium 135 mmol/L (136-145) L 09/19/24 07:50 Magnesium 1.7 mg/dL (1.6-2.6) 09/15/24 04:11 Phosphorus 2.1 mg/dL (2.5-4.9) L 09/19/24 07:50 BUN 42 mg/dL (7-18) H 09/19/24 07:50 Creatinine 5.66 mg/dL (0.55-1.02) H 09/19/24 07:50 Glucose 99 mg/dL (74-106) 09/19/24 07:50 POC Glucose 115 mg/dL (74-106) H 09/19/24 05:50 TSH 2.490 uIU/mL (0.358-3.740) 09/14/24 04:59 COAG PT 14.6 SECONDS (11.7-14.9) 09/13/24 15:55 Urine Test Negative Negative 11/08/18 19:40 Pre-Assessment Diagnosis/Proposed Procedure Planned Operative Procedure(s): I&D ankle wound Anesthesia History Anesthesia History - quality assurance qa lab analyst: Anesthesia History - quality assurance qa lab analyst Hx Hospitalization Yes 12/29/20 08:24 Any Problems With Anesthesia No 09/19/24 02:35 Cholinesterase deficiency No 09/19/24 02:35 You/Your Family Experience No 09/19/24 02:35 fever (hyperthermia) with Relationship Recent Exposure to Contagious No 09/19/24 02:35 Disease Does patient have nerve No 09/19/24 02:35 stimulator Patient instructed to have device shut off --Does patient have Pacemaker No 09/19/24 06:49 or ICD? When Was Last Pacemaker Check QUESTION #4 FULL TEXT: You/Your Family Experience fever (hyperthermia) with Anesthesia Last Oral Intake Last Oral intake: Last Oral Intake NPO since 00:00 09/19/24 06:49 Meds taken in AM with sips of Yes 09/19/24 06:49 water? Meds patient instructed to syntroid, oxyir, tylenol, 09/19/24 06:49 take am of surgery carafate and hydralazine PONV PONV - quality assurance qa lab analyst: PONV - quality assurance qa lab analyst Female HX of Motion Sickness HX of N/V After Surgery Non-Smoker Duration of Surgery greater than 60 minutes Number of Risk Factors PONV Score Height & Weight Height & Weight: Anesthesia: Height & Weight Height 5 ft 6 in 09/14/24 12:57 Weight: 72.4 kg 09/19/24 12:01 Body Mass Index (BMI) 25.6 09/19/24 12:01 Respiratory Assessment Respiratory Assessment - quality assurance qa lab analyst: Respiratory Tract Infection Hx - quality assurance qa lab analyst Hx Respiratory Tract Infection No 09/19/24 02:35 STOP Sleep Apnea STOP Sleep Apnea - quality assurance qa lab analyst: STOP Sleep Apnea - quality assurance qa lab analyst Hx Hypertension Yes 09/15/24 13:47 Hx Sleep Apnea No 09/13/24 21:29 CPAP No 09/13/24 21:29 BIPAP No 09/13/24 21:29 Do you snore loudly (louder No 09/13/24 21:29 than talking or can be heard Do you often feel tired/ No 09/13/24 21:29 fatigued/ sleepy during daytime? Has anyone observed you stop No 09/13/24 21:29 breathing during sleep? STOP Results Negative 09/13/24 21:29 QUESTION #5 FULL TEXT : Do you snore loudly (louder than talking or can be heard through closed doors)? 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 Specify any problems Hx of Preganancy in last 3 No 09/13/24 21:29 Months Nurse Filling Out Transfusion TMELLOR 09/13/24 21:29 & Questions: Date: 09/13/24 09/13/24 21:29 Time: 21:30 09/13/24 21:29 Patient unable to answer at this time (ie. confused, unrespo /Reproduction History /Reproductive History - quality assurance qa lab analyst: /Reproductive Hx- quality assurance qa lab analyst Hx Now Gestational Age (in weeks): EDC: Hx Hx Para Hx Section SAB No 09/19/24 02:35 Active Medications Active Medications: Current Medications Generic Name Dose Route Start Last Admin Trade Name Freq PRN Reason Stop Dose Admin Acetaminophen 650 mg 09/13/24 21:07 09/19/24 04:38 Acetaminophen 325 Mg Tablet PO 650 mg Q6H PRN PRN Administration Pain 1-5/10 or Fever Amlodipine Besylate 5 mg 09/14/24 10:00 09/19/24 12:14 Amlodipine 5 Mg Tablet PO 5 mg DAILY TAB Administration Protocol Ascorbic Acid 500 mg 09/13/24 22:00 09/19/24 12:43 Ascorbic Acid 500 Mg Tablet PO Not Given BID [facility] Aspirin 81 mg 09/14/24 08:00 09/19/24 12:42 Aspirin 81 Mg [facility]w [facility] Calamine/Phenol 1 applic 09/13/24 22:00 09/19/24 12:42 Menthol/Lanolin/Calamine/Znox 113 Gm Tube TOPICAL 1 applic BID [facility] Administration Protocol Calcitriol 0.5 mcg 09/14/24 10:00 09/19/24 12:43 Calcitriol 0.25 Mcg Capsule PO Not Given MoWeFr@1000 [facility] Calcium Acetate 667 mg 09/14/24 08:00 09/19/24 12:44 Calcium Acetate 667 Mg Capsule PO Not Given TIDCM [facility] Carvedilol 25 mg 09/13/24 22:00 09/19/24 12:13 Car[facility]ilol 25 Mg [facility] Administration Protocol Diphenhydramine HCl 12.5 mg 09/13/24 21:07 09/17/24 22:39 Diphenhydramine 12.5 Mg/5 Ml Udc PO 12.5 mg Q6H PRN PRN Administration Itching Folic Acid 1 mg 09/14/24 08:00 09/19/24 12:42 Folic Acid 1 Mg Tablet [facility] Gabapentin 100 mg 09/13/24 21:07 09/18/24 09:36 Gabapentin 100 Mg Capsule PO 100 mg MoWeFr PRN Administration Nerve pain 1-10 Glucagon 1 mg 09/15/24 15:23 Glucagon 1 Mg/Ml Syringe IM X1 PRN Hypoglycemia Protocol Hemodialysis Solution 6 bag 09/19/24 07:30 09/19/24 08:10 Pureflow B 2k Dialysis Soln 1 Bag PF 09/19/24 19:17 6 bag UD [facility] Administration Protocol Heparin Sodium (Porcine) 5,000 unit 09/13/24 22:00 09/19/24 09:32 Heparin Injection (Vial) 5,000 Unit/Ml Vial SC Not Given Q12 [facility] Heparin Sodium (Porcine) 1,000 - 3,000 units 09/19/24 07:15 09/19/24 11:47 Heparin 10,000 Units/10 Ml Vial IV 09/19/24 19:15 2,200 units X1 PRN Administration HD catheter closing Hydralazine HCl 50 mg 09/13/24 22:00 09/19/24 04:37 Hydralazine 50 Mg Tablet PO 50 mg TID [facility] Administration Protocol Daptomycin 300 mg/ Sodium 56 mls @ 100 mls/hr 09/15/24 22:00 09/17/24 23:27 Chloride IV Infused QODAY@2200 TAB Infusion Sodium Chloride 500 mls @ 15 mls/hr 09/13/24 21:35 IV .[id number] PRN Saline Flush Dextrose 250 mls @ 0 mls/hr 09/15/24 15:23 Dextrose 10%-Water IV .Q0M PRN HYPOGLYCEMIA Protocol As Directed Insulin Human Lispro 0 unit 09/15/24 16:00 09/19/24 12:44 Insulin Lispro 100 Unit/Ml Insuln.Pen SC Not Given ACHS [facility] Protocol Levetiracetam 500 mg 09/13/24 22:00 09/19/24 12:14 Levetiracetam 500 Mg Tablet PO 500 mg BID [facility] Administration Levothyroxine Sodium 25 mcg 09/14/24 06:00 09/19/24 04:37 Levothyroxine 25 Mcg Tablet PO 25 mcg 0600 [facility] Administration Lorazepam 0.5 mg 09/13/24 21:07 09/18/24 21:36 Lorazepam 0.5 Mg Tablet PO 0.5 mg Q12H PRN PRN Administration anxiety Melatonin 3 mg 09/13/24 21:07 09/17/24 21:27 Melatonin 3 Mg Tablet PO 3 mg QHS PRN PRN Administration Insomnia Nutritional Formula (Lactose Free) 120 ml 09/14/24 08:00 09/19/24 12:44 Glucerna Shake 120 Ml Liquid PO Not Given TIDCM [facility] Ondansetron HCl 4 mg 09/13/24 21:07 09/19/24 06:31 Ondansetron 4 Mg/2 Ml Vial IV 4 mg Q6H PRN PRN Administration NAUSEA/VOMITING Oxycodone HCl 2.5 mg 09/13/24 21:07 09/19/24 12:15 Oxycodone 5 Mg Tablet PO 2.5 mg Q8H PRN PRN Administration Pain Score 6-10 Pantoprazole Sodium 40 mg 09/14/24 08:00 09/19/24 12:42 Pantoprazole Sodium 40 Mg [facility] Paroxetine HCl 20 mg 09/14/24 10:00 09/19/24 12:43 Paroxetine 20 Mg Tablet PO Not Given DAILY [facility] Senna/Docusate Sodium 2 tablet 09/13/24 21:07 Senna/Docusate Sodium 1 Tablet PO BID PRN PRN Constipation Sodium Chloride 10 - 40 ml 09/13/24 21:35 09/19/24 11:46 0.9% Saline Lock 10 Ml Syringe IV 20 ml UD PRN Administration SALINE FLUSH Sodium Chloride 1,000 ml 09/19/24 07:15 09/19/24 08:10 0.9% Normal Saline 1,000 Ml Iv.Soln. OPERA.SITE 09/19/24 19:15 1,000 ml X1 TAB Administration Sodium Chloride 200 ml 09/19/24 07:15 0.9% Normal Saline 1,000 Ml Iv.Soln. IV 09/19/24 19:15 X1 PRN to maintain SBP >90mmHg during Dialysis Sucralfate 1 gm 09/14/24 07:00 09/19/24 12:43 Sucralfate 1 Gm Tablet PO Not Given TID@0700,1100,1600 [facility] Medical History Hypertension ESRD (end stage renal disease) on dialysis Non-pressure chronic ulcer of right ankle with necrosis of muscle Non-pressure chronic 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 layer exposed Non-pressure chronic ulcer of other part of left foot with fat layer exposed Non-pressure chronic ulcer of left ankle with necrosis of muscle Adverse effect of synthetic cannabinoids, initial encounter [place] coma scale score 13-15, at arrival to emergency department Acute alteration in mental status Short Achilles tendon (acquired), left ankle Short Achilles tendon (acquired), right ankle Acquired cavovarus deformity of left foot Acquired cavovarus deformity of right foot Type 2 diabetes mellitus with diabetic polyneuropathy Adult failure to thrive Debility Charcot's joint, right ankle and foot Charcot's joint, left ankle and foot Drowsiness Mental status, decreased Carotid artery stenosis MSSA bacteremia ESRD on hemodialysis Osteomyelitis Anemia in chronic illness Type 2 diabetes mellitus Foot osteomyelitis, left Chronic renal disease, stage 4, severely decreased glomerular filtration rate (GFR) between 15-29 mL/min/1.73 square meter Acute on chronic anemia Chronic ulcer of right foot with necrosis of bone Chronic kidney disease, stage 4 (severe) Diabetes mellitus with diabetic polyneuropathy Diabetic foot ulcers Chronic kidney disease, stage 3b Cellulitis Acute lumbar radiculopathy Essential hypertension Adult failure to thrive COVID-19 (08/28/21) Chronic ulcer of right leg with fat layer exposed Ulcer of left foot with fat layer exposed Chronic ulcer of right foot with fat layer exposed Hyperparathyroidism, secondary renal Iron deficiency anemia Bilateral edema of lower extremity Chronic foot pain Charcot's joint of right foot Diabetes Non-smoker Myocardial infarct TIA (transient ischemic attack) Amputation foot, bilat 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 Ulcer of left foot with necrosis of muscle Ulcer of left foot with muscle involvement without evidence of necrosis Anxiety and depression Diabetic infection of left foot Delayed wound healing Non-compliance Diabetic polyneuropathy Ischemic cardiomyopathy Obesity (BMI 30.0-34.9) Acquired varus deformity of left foot Acquired varus deformity of right foot Atherosclerosis of [place] coronary artery of [place] heart without angina pectoris Hemoglobin A1c greater than 9.0% NSTEMI (non-ST elevated myocardial infarction) (09/20/18) GERD (gastroesophageal reflux disease) HLD (hyperlipidemia) Back pain, chronic RLS (restless legs syndrome) Home Medications ?Medication ?Instructions ?Recorded ?Last Taken ?Type paroxetine HCl 20 mg tablet 20 mg PO DAILY DEPRESSION 07/07/21 04/07/22 History sennosides 8.6 mg-docusate sodium 2 tab PO BID PRN PRN Constipation 04/24/22 Unknown Rx 50 mg tablet (Stool #0 tabs Softener-Stimulant Laxative) ascorbic acid (vitamin C) 500 mg 500 mg PO BID supplement 05/05/22 Unknown History tablet (Vitamin C) pantoprazole 40 mg tablet,delayed 40 mg PO BIDCM GERD 07/19/22 Unknown History release gabapentin 100 mg capsule 100 mg PO .COMPLEX PRN pain 11/26/23 Unknown History amlodipine 5 mg tablet 5 mg PO DAILY bp 12/16/23 Unknown History calcitriol 0.5 mcg capsule 0.5 mcg PO .COMPLEX on dialysis 12/16/23 07/09/24 History calcium acetate(phosphat bind) 667 676 mg PO TID is on dialysis 12/16/23 Unknown History mg capsule folic acid 800 mcg tablet 0.8 mg PO DAILY supplement 12/16/23 Unknown History levothyroxine 25 mcg tablet 25 mcg PO DAILY thyroid 12/16/23 Unknown History nitroglycerin 0.4 mg sublingual 0.4 mg sublingual Q5M chest pain 12/16/23 Unknown History tablet (Nitrostat) aspirin 81 mg capsule 81 mg PO DAILY blood thinner #30 12/26/23 Unknown Rx caps atorvastatin 40 mg tablet 40 mg PO DAILY cholesterol 03/18/24 06/26/24 History carvedilol 25 mg tablet 25 mg PO BID blood pressure 03/18/24 Unknown History hydralazine 50 mg tablet 50 mg PO TID bp #0 tabs 05/21/24 Unknown Rx melatonin 3 mg tablet 3 mg PO QHS PRN PRN Insomnia #0 05/21/24 Unknown Rx tabs menthol 0.44 %-zinc oxide 20.6 % 1 applic topical BID skin care #0 05/21/24 Unknown Rx topical ointment (Calmoseptine) grams sucralfate 1 gram tablet 1 g PO TID@0700,1100,1600 05/21/24 Unknown Rx indigestion #0 tabs oxycodone 5 mg tablet 2.5 mg (1/2 x 5 mg) PO Q8H PRN 07/02/24 Unknown Rx pain 3 days #10 tabs acetaminophen 325 mg tablet 650 mg PO Q6H PRN fever or pain 07/09/24 Unknown History diphenhydramine HCl 25 mg capsule 12.5 mg (1/2 x 25 mg) PO Q6H PRN 07/10/24 Unknown Rx (Banophen) PRN Itching #0 caps ertapenem 1 gram solution for 1 g IV .MWF 35 days #15 ea 07/10/24 Unknown Rx injection levetiracetam 500 mg tablet 500 mg PO BID 30 days #60 tabs 07/10/24 Unknown Rx insulin lispro 100 unit/mL 10 unit subcut TIDAC blood sugar 09/13/24 Unknown History subcutaneous pen (Humalog KwikPen (U-100) Insulin) ipratropium 0.5 mg-albuterol 3 mg 3 ml inhalation Q4H 09/13/24 Unknown History (2.5 mg base)/3 mL nebulization soln lorazepam 0.5 mg tablet 0.5 mg PO Q12H PRN anxiety 09/13/24 Unknown History ondansetron HCl 4 mg tablet 4 mg PO Q4H PRN PRN nausea and 09/13/24 Unknown History vomiting sevelamer carbonate 800 mg tablet 1,600 mg PO TID 09/13/24 Unknown History Allergy/AdvReac Type Severity Reaction Status Date / Time oxycodone (From OxyContin) Allergy sob Verified 09/13/24 15:36 Penicillins Allergy swelling Verified 09/13/24 15:36 in throat vancomycin Allergy Itching Verified 09/13/24 15:36 metronidazole AdvReac Nausea Verified 09/13/24 15:36 Family History Mother Diabetes CVA (cerebral vascular accident) Brother CAD (coronary artery disease) CABG X 3 Cancer testicular Diabetes Brother CAD (coronary artery disease) CABG X3 Diabetes Brother CAD (coronary artery disease) Stents Diabetes Sister CAD (coronary artery disease) CABG x 3 CVA (cerebral vascular accident) Diabetes Surgical History History of History of foot surgery History of bilateral carpal tunnel release History of rotator cuff surgery History of coronary artery stent placement (12/31/20) Social History household members: none number of children: 2 current occupational status: disabled Smoking Status: Never smoker alcohol intake: never substance use type: does not use caffeine: Yes Type: carbonated beverages Number of servings: 2 Review of Systems (Anesthesia) ROS Narrative System reviewed and no additional complaints, except as documented.
--- NOTE | 2024-09-19 13:12 | PN_ITS ---
Subjective Subjective patient seen bedside, patient has pain to right lateral ankle wound, holding limb in dependency Objective Data Objective Data Vital Signs: Vital Signs Temp Pulse Resp BP Pulse Ox O2 Del Method O2 Flow Rate 98.3 F 79 15 147/61 H 97 Nasal Cannula 2 09/19/24 13:06 09/19/24 13:06 09/19/24 13:06 09/19/24 13:06 09/19/24 13:06 09/19/24 12:01 09/19/24 13:06 Oxygen Flow Rate (L/min) 2 Oxygen Delivery Method Nasal Cannula Weight: 72.4 kg Body Mass Index (BMI) 25.6 Intake & Output: Intake and Output for Last 24 Hours 09/17/24 09/18/24 09/19/24 23:59 23:59 23:59 Intake Total 1116 / 1116 200 / 200 90 / 90 Output Total 2670 / 2670 4800 / 4800 Balance -1554 / -1554 200 / 200 -4710 / -4710 Lab / Micro Data 09/19/24 07:50 09/19/24 07:50 Labs: Laboratory Results - last 24 hr 09/18/24 17:43: POC Glucose 142 H 09/18/24 21:36: POC Glucose 128 H 09/19/24 05:50: POC Glucose 115 H 09/19/24 07:50: WBC 6.7, RBC 2.55 L, Hgb 7.8 L, Hct 25.5 L, MCV 100.0 H, MCH 30.6, MCHC 30.6 L, RDW Std Deviation 62.4 H, RDW Coeff of Fior 17.1 H, Plt Count 425, MPV 9.6, Immature Gran % (Auto) 0.900, Neut % (Auto) 70.7 H, Lymph % (Auto) 13.7 L, [place] % (Auto) 11.1 H, Eos % (Auto) 3.0, Baso % (Auto) 0.6, Absolute Neuts (auto) 4.7, Absolute Lymphs (auto) 0.91, Nucleated RBC % 0, Sodium 135 L, Potassium 4.9, Chloride 103, Carbon Dioxide 25.0, Anion Gap 7, BUN 42 H, C reatinine 5.66 H, Estim Creat Clear Calc 11.07, Est GFR (MDRD) Af Amer 10 L, Est GFR (MDRD) Non-Af 8 L, BUN/Creatinine Ratio 7.4 L, Glucose 99, Calcium 9.0, P hosphorus 2.1 L Micro: Microbiology 09/17/24 Unknown Wound - Right Foot Gram Stain - Final 09/17/24 Unknown Wound - Right Foot Wound Culture - Preliminary No growth-Final to follow 09/17/24 Unknown Wound - Right Foot Anaerobic Culture - Preliminary No growth in 48 hours. 09/13/24 16:05 Blood Culture (Wb) - Venous Blood Culture - Final No growth in 5 days. 09/13/24 15:55 Blood Culture (Wb) - Venous Blood Culture - Final No growth in 5 days. 09/13/24 16:58 Blood Culture (Wb)#3 - Anticubital Right Blood Culture - Final No growth in 5 days. 09/14/24 07:50 Wound - Right Foot Gram Stain - Final 09/14/24 07:50 Wound - Right Foot Wound Culture - Final Staphylococcus auricularis Enterococcus faecalis 09/13/24 16:18 Urine, Clean Catch Urine Culture - Final Culture exhibits no growth. Physical Exam Narrative Vascular: Dorsalis pedis posterior tibial pulses palpable 2 out of 4 to bilateral lower extremity. Skin atrophic noted bilaterally. Dermatologic: Full-thickness wound down the level of peroneal tendons on the lateral right ankle. Cavovarus deformity noted to the right lower extremity suggestive of loss of function of the peroneus brevis tendon transfer. Rectus alignment noted to left lower extremity with healed wounds. Neurologic: Light touch protective sensation absent to bilateral feet. Musculoskeletal: Rectus alignment left foot and ankle suggestive of successful peroneus brevis tendon transfer. Cavovarus right lower extremity suggestive of loss of function of peroneus brevis tendon transfer. No sign DVT bilaterally. Const alert and oriented x3 Assessment & Plan Assessment/Plan (1) Non-pressure chronic ulcer of other part of right foot with necrosis of muscle: PLAN: Exam performed. Plan to continue with plan for surgical debridement right lateral ankle Long-term patient will require either bracing or reconstruction right lower extremity. Due to patient's poor health status likely will proceed with bracing. Surgical debridement today indicated due to right ankle cellulitis infection and nonhealing ulceration. (2) Cellulitis of right lower limb:
[2024-09-19] MEDS: 0.9% Normal Saline (1000mL) 1,000 ML 15 ML IV (13:15)
[2024-09-19 13:35] LABS: Bedside Glucose 92 mg/dL (74-106)
[2024-09-19] MEDS: Bupivacaine Mpf 0.5% 30 ML VIAL (13:56)
--- NOTE | 2024-09-19 14:02 | PCM.OPRPT ---
Problems Associated Problem List Diagnoses (1) Non-pressure chronic ulcer of right ankle with necrosis of muscle: Operative Report (Standard) Operative Information Date of Procedure: 09/19/24 Pre-Operative Diagnosis: 1) Right Lateral Ankle Ulceration down to peroneal tendons 2) Diabetic Neuropathy Post-Operative Diagnosis: same Surgery/Procedure Performed: Excisional debridement down to and including level of muscle director of education: No Type of Anesthesia: MAC RN Documented Start/Stop Times: Operation Date: 09/19/24 13:30 Case Time Into Pre-Op 09/19/24 12:43 Anesthesia Start 09/19/24 13:22 Into Room 09/19/24 13:22 Procedure Start 09/19/24 13:41 Procedure End 09/19/24 13:58 Procedure Start Time: 13:30 Procedure Stop Time: 14:00 Select all DRAINS/GRAFTS/IMPLANTS that apply: Graft Graft details: [employer] bioskin graft 4x4cm Special Medications: 10cc 0.5% marcaine plain Estimated Blood Loss: minimal Specimen collected: Yes Description of specimen(s) removed: right ankle tissue culture Description of surgery: Patient brought back the operating placed company in supine position on the operating room table. Patient induced under MAC anesthesia. Well-padded right thigh tourniquet was applied. Right lower extremity scrubbed prepped draped using typical aseptic fashion. Once cleared by anesthesia a local infiltration block was performed with 10 cc half percent Marcaine plain. The right lateral ankle wound was excisionally debrided down to including level of muscle and tendon. This was performed using a bone curette as well as bone rongeur's. Predebridement the wound demonstrated a fibrogranular base with periwound erythema approximately 50-50 measuring 6.9 x 3.9 x 0.4 cm. Postdebridement wound demonstrated a clean granular base but did have exposed peroneus brevis and longus tendons along the inferior aspect measuring 7.0 x 4.0 x 0.5 cm. Wound demonstrated healthy bleeding suggestive of good healing potential. Site was flushed with copious amounts normal sterile saline. Tissue cultures were obtained using sterile bone rongeurs passed the back table to be sent to micro biology for additional evaluation. Overlying graft was applied to the right lateral ankle 4 x 4 cm Bio[employer]kin from [employer]. This was stabilized with overlying Adaptic dry sterile dressing and [place] bandage. Patient was transported PACU vital signs stable vascular status intact all digits for further monitoring prior to transfer. Patient tolerated procedure well and will continue receiving IV antibiotics on the floor. Complications none Findings healthy bleeding wound base no evidence of deep purulence or deep infection at this time. Exposed peroneal tendons noted to the inferior aspect of the wound site. Surgical Findings: As dictated above as dictated above Complications Complications: No
--- NOTE | 2024-09-19 14:12 | PCM.POST.ANE ---
Anesthesia: Postop Eval I Current Vital Signs Temperature: 99 F Pulse Rate: 62 Blood Pressure: 113/55 Respiratory Rate: 16 Pulse Ox: 96 Oxygen Delivery Method: Room Air Assessment Airway patent: Yes Spontaneous unlabored respirations: Yes Mental status: Awake and Calm nausea: No Vomiting: No Anesthesia Complication: No Fluid Hydration Crystalloid volume administer (ml): 500 Total IV fluid infused: 500 Progress Note Anesthesia document: Postop Eval 1 completed: Yes
[2024-09-19 16:46] LABS: Bedside Glucose 89 mg/dL (74-106)
[2024-09-19] MEDS: Pantoprazole Sodium 40 MG Tablet PO (16:57)
[2024-09-19] MEDS: Lactobacillis Acidophilus 1 CAP PO ×2 (16:58→21:56)
[2024-09-19] MEDS: Juven (unflavored) Packet 1 PACKET PO (17:00)
[2024-09-19] MEDS: Calcium Acetate 667 MG Capsule PO (17:01)
--- NOTE | 2024-09-19 17:47 | POSTOPAN2_ITS ---
Anesthesia Postop Eval I Sum Postop Eval Completion status Anesthesia document: Postop Eval 1 completed: Yes Anesthesia Postop Eval I Summary Anesthesia Postop Eval I Summary: Anesthesia Postop Eval I: Assessment Summary Airway patent Yes 09/19/24 14:13 [email or web address] [email or web address] Spontaneous unlabored Yes 09/19/24 14:13 ROLL SHEETING [email or web address] respirations Mental status Awake,Calm 09/19/24 14:13 ROLL [email or web address] nausea No 09/19/24 14:13 ROLL SHEETING [email or web address] Vomiting No 09/19/24 14:13 ROLL SHEETING [email or web address] Anesthesia Postop Eval I: Fluid Summary Crystalloid volume administer 500 09/19/24 14:13 ROLL [email or web address] (ml) Colloids volume administered ( ml) Blood Product volume administered (ml) Total IV fluid infused 500 09/19/24 14:13 ROLL SHEETING [email or web address] Anesthesia Postop Eval I: Summary Notes Anesthesia Complication No 09/19/24 14:13 ROLL SHEETING [email or web address] Anesthesia Complication Comment: Post-operative progress note Anesthesia: Postop Eval II Evaluation Mental status: Awake and Calm Pain Level: 1 nausea: No Vomiting: No Complications Anesthesia Complication: No
--- NOTE | 2024-09-19 17:47 | PCM.POSTANE2 ---
Anesthesia Postop Eval I Sum Postop Eval Completion status Anesthesia document: Postop Eval 1 completed: Yes Anesthesia Postop Eval I Summary Anesthesia Postop Eval I Summary: Anesthesia Postop Eval I: Assessment Summary Airway patent Yes 09/19/24 14:13 FOOD [email or web address] [email or web address] Spontaneous unlabored Yes 09/19/24 14:13 FOOD SAFETY [email or web address] respirations Mental status Awake,Calm 09/19/24 14:13 FOOD [email or web address] [email or web address] nausea No 09/19/24 14:13 FOOD SAFETY [email or web address] Vomiting No 09/19/24 14:13 FOOD [email or web address] [email or web address] Anesthesia Postop Eval I: Fluid Summary Crystalloid volume administer 500 09/19/24 14:13 FOOD [email or web address] (ml) Colloids volume administered ( ml) Blood Product volume administered (ml) Total IV fluid infused 500 09/19/24 14:13 FOOD [email or web address] [email or web address] Anesthesia Postop Eval I: Summary Notes Anesthesia Complication No 09/19/24 14:13 FOOD [email or web address] [email or web address] Anesthesia Complication Comment: Post-operative progress note Anesthesia: Postop Eval II Evaluation Mental status: Awake and Calm Pain Level: 1 nausea: No Vomiting: No Complications Anesthesia Complication: No
[2024-09-19] MEDS: LORazepam 0.5 MG Tablet PO (21:53)
[2024-09-19] MEDS: MELATONIN 3 MG TABLET PO (21:53)
[2024-09-19] MEDS: Heparin Injection (Vial) 5,000 UNIT/ML VIAL 5000 UNIT SC (21:54)
[2024-09-19] MEDS: Ascorbic Acid 500 MG Tablet PO (22:17)
[2024-09-19 23:05] LABS: Bedside Glucose 114 mg/dL (74-106)
[2024-09-19] MEDS: DAPTOMYCIN IV (23:14)
[2024-09-19] MEDS: NORMAL SALINE 0.9% IV (23:14)
[2024-09-20] VITALS (12 sets, daily range): BP systolic 116–134; BP diastolic 52–61; PULSE 64–76; RESP 16–20; TEMP 36.2–36.8; O2SAT 80–97; BMI 25.6
[2024-09-20] MEDS: Acetaminophen 325 MG Tablet 650 MG PO ×3 (05:27→21:15)
[2024-09-20] MEDS: hydrALAZINE 50 MG Tablet PO ×3 (05:29→21:15)
[2024-09-20] MEDS: Levothyroxine 25 MCG TABLET PO (05:29)
[2024-09-20] MEDS: oxyCODONE 5 MG Tablet 2.5 MG PO ×3 (05:38→23:52)
[2024-09-20 06:18] LABS: Absolute Lymphocyte Count 1.07 X10^3/uL (0.83-4.51); Basophil# 0.06 X10^3/uL; Basophil% 1.2 % (0-1); Eosinophil# 0.22 X10^3/uL; Eosinophils% 4.4 % (0-5); Hematocrit 26.3 % (37-47); Lymphocyte # 1.07 X10^3/ul (0.83-4.51); Lymphocyte % 21.5 % (19-41); Mean Corp Hgb Conc 30.4 g/dL (32-36); Mean Corpuscular Hgb 30.5 pg (27.0-32.0); Mean Corpuscular Volume 100.4 fL (81-99); Mean Platelet Vol. 9.6 fl (6.2-12.0); Monocyte# 0.62 X10^3/uL; Monocyte% 12.4 % (0-10); NRBC Flagged by Analyzer 0 % (0-5); Neutrophil # 2.95 X10^3/uL (2.7-7.7); Neutrophil % 59.3 % (47-70); Platelet Count 417 K/mm3 (150-450); RBC Distribution Width SD 63.5 fl (35.1-43.9); Red Blood Count 2.62 M/mm3 (4.2-5.4)
[2024-09-20 06:42] LABS: Anion Gap 4 (5-15); BUN 32 mg/dL (7-18); BUN/Creat Ratio 7.5 RATIO (10-20); Chloride 102 mmol/L (98-107); Creatinine, Serum 4.29 mg/dL (0.55-1.02); EST Glomerular Filtration Rate 11 mL/min (>60); Est Glom Filt Rate - Afr Amer 14 mL/min (>60); Estimated Creatinine Clearance 14.38 ml/min; Glucose 140 mg/dL (74-106); Potassium 4.8 mmol/L (3.5-5.1); Sodium Level 134 mmol/L (136-145)
[2024-09-20] MEDS: Sucralfate 1 GM Tablet PO ×3 (06:43→14:54)
[2024-09-20 07:18] LABS: Bedside Glucose 118 mg/dL (74-106)
--- NOTE | 2024-09-20 07:21 | PCM.PN.HOSP ---
Reason for Visit Reason for Visit: Diagnoses Hyperkalemia (09/13/24) Essential (primary) hypertension (09/13/24) Cellulitis of right lower limb (09/13/24) Non-pressure chronic ulcer of right ankle with necrosis of muscle (09/13/24) Non-pressure chronic ulcer of other part of right foot with necrosis of muscle (09/13/24) End stage renal disease (09/13/24) Secondary hyperparathyroidism of renal origin (09/13/24) Acute cystitis without hematuria (09/13/24) Urinary tract infection, site not specified (09/13/24) Generalized abdominal pain (09/13/24) Carrier of other specified bacterial diseases (09/13/24) Dependence on renal dialysis (09/13/24) Subjective Subjective Sleeping. No new events. Objective Data Objective Data Vital Signs: Vital Signs Temp Pulse Resp BP Pulse Ox O2 Del Method O2 Flow Rate 36.2 C L 64 16 130/56 H 93 Nasal Cannula 3 09/20/24 05:20 09/20/24 06:58 09/20/24 06:58 09/20/24 06:58 09/20/24 06:58 09/20/24 06:58 09/20/24 06:58 Oxygen Flow Rate (L/min) 3 Oxygen Delivery Method Nasal Cannula Weight: 72.3 kg Body Mass Index (BMI) 25.6 Intake & Output: Intake and Output for Last 24 Hours 09/18/24 09/19/24 09/20/24 23:59 23:59 23:59 Intake Total 200 / 200 146 / 346 300 / 300 Output Total 4800 / 4800 Balance 200 / 200 -4654 / -4454 300 / 300 Lab / Micro Data 09/20/24 05:18 09/20/24 05:18 Labs: Laboratory Results - last 24 hr 09/19/24 07:50: WBC 6.7, RBC 2.55 L, Hgb 7.8 L, Hct 25.5 L, MCV 100.0 H, MCH 30.6, MCHC 30.6 L, RDW Std Deviation 62.4 H, RDW Coeff of Fior 17.1 H, Plt Count 425, MPV 9.6, Immature Gran % (Auto) 0.900, Neut % (Auto) 70.7 H, Lymph % (Auto) 13.7 L, Gonzales % (Auto) 11.1 H, Eos % (Auto) 3.0, Baso % (Auto) 0.6, Absolute Neuts (auto) 4.7, Absolute Lymphs (auto) 0.91, Nucleated RBC % 0, Sodium 135 L, Potassium 4.9, Chloride 103, Carbon Dioxide 25.0, Anion Gap 7, BUN 42 H, Creatinine 5.66 H, Estim Creat Clear Calc 11.07, Est GFR (MDRD) Af Amer 10 L, Est GFR (MDRD) Non-Af 8 L, BUN/Creatinine Ratio 7.4 L, Glucose 99, Calcium 9.0, Phosphorus 2.1 L 09/19/24 12:06: POC Glucose 92 09/19/24 16:28: POC Glucose 89 09/19/24 22:10: POC Glucose 114 H 09/20/24 05:18: WBC 5.0, RBC 2.62 L, Hgb 8.0 L, Hct 26.3 L, MCV 100.4 H, MCH 30.5, MCHC 30.4 L, RDW Std Deviation 63.5 H, RDW Coeff of Fior 17.0 H, Plt Count 417, MPV 9.6, Immature Gran % (Auto) 1.200 H, Neut % (Auto) 59.3, Lymph % (Auto) 21.5, Gonzales % (Auto) 12.4 H, Eos % (Auto) 4.4, Baso % (Auto) 1.2 H, Absolute Neuts (auto) 3.0, Absolute Lymphs (auto) 1.07, Nucleated RBC % 0, Sodium 134 L, Potassium 4.8, Chloride 102, Carbon Dioxide 28.0, Anion Gap 4 L, BUN 32 H, Creatinine 4.29 H, Estim Creat Clear Calc 14.38, Est GFR (MDRD) Af Amer 14 L, Est GFR (MDRD) Non-Af 11 L, BUN/Creatinine Ratio 7.5 L, Glucose 140 H, Calcium 9.0 09/20/24 06:44: POC Glucose 118 H Micro: Microbiology 09/19/24 14:17 Wound - Ankle Gram Stain - Final 09/17/24 Unknown Wound - Right Foot Gram Stain - Final 09/17/24 Unknown Wound - Right Foot Wound Culture - Preliminary No growth-Final to follow 09/17/24 Unknown Wound - Right Foot Anaerobic Culture - Preliminary No growth in 48 hours. 09/13/24 16:05 Blood Culture (Wb) - Venous Blood Culture - Final No growth in 5 days. 09/13/24 15:55 Blood Culture (Wb) - Venous Blood Culture - Final No growth in 5 days. 09/13/24 16:58 Blood Culture (Wb)#3 - Anticubital Right Blood Culture - Final No growth in 5 days. 09/14/24 07:50 Wound - Right Foot Gram Stain - Final 09/14/24 07:50 Wound - Right Foot Wound Culture - Final Staphylococcus auricularis Enterococcus faecalis 09/13/24 16:18 Urine, Clean Catch Urine Culture - Final Culture exhibits no growth. Physical Exam Const Constitutional Narrative: sleeping. did not awake to shoulder tap. HEENT head/scalp atraumatic and moist oral mucous membranes Resp normal respiratory effort, no retractions and no use of accessory muscles Cardio regular rate, regular rhythm, S1 normal heart sound and S2 normal heart sound GI normal to inspection, nondistended, normoactive bowel sounds, soft to palpation, non-tender and non-distended Extremity Extremity Narrative: right foot wrapped--did not remove. Assessment & Plan Assessment/Plan (1) VRE (vancomycin resistant enterococcus) culture positive: (2) Acute cystitis: PLAN: Plan Acute cystitis with VRE Infectious disease following. UA on admit with 100 leukocyte esterase, negative nitrites, 1+ bacteria. Urine culture at [facility] reportedly grew VRE. Urine culture from 09/13 negative (not positive as mentioned in note on 09/17). Blood cultures with no growth at 48 hours. Continue IV daptomycin for now and appreciate final ID recs tomorrow in preparation for discharge back to [facility] tomorrow. Recent complicated admission at outside hospital with recurrent diabetic foot infection Noted to have recent complicated hospitalization at [facility] in [place]. Hospitalization was complicated by strep bacteremia, right ankle infection and C. difficile. Reportedly completed 8 days of p.o. vancomycin while there and completed the last 2 days of treatment at [facility]. Per ID, if patient does develop recurrent diarrhea would plan to treat with p.o. vancomycin but patient has not had any diarrhea since admission. Wound cx showing Staph auricularis and E faecalis Podiatry consulted. 09/19, pt underwent debridement down to and including level of muscle. ESRD on HD Nephrology following. On HD Tuesday Acute on chronic debility PT/OT/case management following. Was recently discharged to [facility] nursing [facility] after hospitalization at [facility]. If patient needs IV antibiotics, would need pre-CERT to return to skilled level of care there. If not, can return to long-term care there. Chronic medical conditions: Chronic anemia: Hemoglobin stable at baseline around 8-9. Type 2 diabetes mellitus: Treating with sliding scale insulin with meals while inpatient. stable. CAD with stenting, hypertension, hyperlipidemia: Continue home aspirin, statin, amlodipine, Coreg, hydralazine. Seizure disorder: Continue home Keppra. Hypothyroidism: Continue home Synthroid. Chronic back pain: Continue home oxycodone as needed. GERD: Continue home PPI and sucralfate. Depression with anxiety: Stable. Continue home Paxil and Ativan as needed. DVT prophylaxis: Heparin subcu CODE STATUS: Full code, verified Charges/Coding Visit Charges Inpatient E&M: 50040 Subs Hosp L2
--- NOTE | 2024-09-20 07:33 | WOUNDNOTE ---
Dressing and MYLA wrap intact to the right ankle/foot. skin substitute was placed in OR yesterday so dressing will most likely be left in place today. will discuss with Dr Julian this am.
[2024-09-20] MEDS: Heparin Injection (Vial) 5,000 UNIT/ML VIAL 5000 UNIT SC ×2 (10:20→21:11)
[2024-09-20] MEDS: Paroxetine 20 MG Tablet PO (10:21)
[2024-09-20] MEDS: Menthol/Lanolin/Calamine/Znox 113 GM Tube 1 APPLIC TOPICAL ×2 (10:23→21:14)
[2024-09-20] MEDS: Calcium Acetate 667 MG Capsule PO ×2 (10:29→18:19)
[2024-09-20] MEDS: Folic Acid 1 MG Tablet PO (10:29)
[2024-09-20] MEDS: Carvedilol 25 MG Tablet PO ×2 (10:29→18:18)
[2024-09-20] MEDS: Pantoprazole Sodium 40 MG Tablet PO ×2 (10:29→18:18)
--- NOTE | 2024-09-20 10:29 | PCM.PN.REN ---
Subjective Subjective Following for ESRD. Patient denies chest pain, shortness of breath, or nausea today. She complains of fatigue. Objective Data Objective Data Vital Signs: Vital Signs Temp Pulse Resp BP Pulse Ox O2 Del Method O2 Flow Rate 97.2 F L 64 16 130/56 H 93 Nasal Cannula 3 09/20/24 05:20 09/20/24 06:58 09/20/24 06:58 09/20/24 06:58 09/20/24 07:01 09/20/24 07:01 09/20/24 07:01 Oxygen Flow Rate (L/min) 3 Oxygen Delivery Method Nasal Cannula Weight: 72.3 kg Body Mass Index (BMI) 25.6 Intake & Output: Intake and Output for Last 24 Hours 09/18/24 09/19/24 09/20/24 23:59 23:59 23:59 Intake Total 200 / 200 146 / 346 300 / 300 Output Total 4800 / 4800 Balance 200 / 200 -4654 / -4454 300 / 300 Lab / Micro Data 09/20/24 05:18 09/20/24 05:18 Labs: Laboratory Results - last 24 hr 09/19/24 12:06: POC Glucose 92 09/19/24 16:28: POC Glucose 89 09/19/24 22:10: POC Glucose 114 H 09/20/24 05:18: WBC 5.0, RBC 2.62 L, Hgb 8.0 L, Hct 26.3 L, MCV 100.4 H, MCH 30.5, MCHC 30.4 L, RDW Std Deviation 63.5 H, RDW Coeff of Fior 17.0 H, Plt Count 417, MPV 9.6, Immature Gran % (Auto) 1.200 H, Neut % (Auto) 59.3, Lymph % (Auto) 21.5, Steele % (Auto) 12.4 H, Eos % (Auto) 4.4, Baso % (Auto) 1.2 H, Absolute Neuts (auto) 3.0, Absolute Lymphs (auto) 1.07, Nucleated RBC % 0, Sodium 134 L, Potassium 4.8, Chloride 102, Carbon Dioxide 28.0, Anion Gap 4 L, BUN 32 H, Creatinine 4.29 H, Estim Creat Clear Calc 14.38, Est GFR (MDRD) Af Amer 14 L, Est GFR (MDRD) Non-Af 11 L, BUN/Creatinine Ratio 7.5 L, Glucose 140 H, Calcium 9.0 09/20/24 06:44: POC Glucose 118 H Micro: Microbiology 09/19/24 14:17 Wound - Ankle Gram Stain - Final 09/17/24 Unknown Wound - Right Foot Gram Stain - Final 09/17/24 Unknown Wound - Right Foot Wound Culture - Preliminary No growth-Final to follow 09/17/24 Unknown Wound - Right Foot Anaerobic Culture - Preliminary No growth in 48 hours. 09/13/24 16:05 Blood Culture (Wb) - Venous Blood Culture - Final No growth in 5 days. 09/13/24 15:55 Blood Culture (Wb) - Venous Blood Culture - Final No growth in 5 days. 09/13/24 16:58 Blood Culture (Wb)#3 - Anticubital Right Blood Culture - Final No growth in 5 days. 09/14/24 07:50 Wound - Right Foot Gram Stain - Final 09/14/24 07:50 Wound - Right Foot Wound Culture - Final Staphylococcus auricularis Enterococcus faecalis 09/13/24 16:18 Urine, Clean Catch Urine Culture - Final Culture exhibits no growth. Physical Exam Narrative General appearance: Ill-appearing. NAD. HEENT: Normocephalic, atraumatic. PERRLA, EOMI. Mucous membrane moist. Cardiovascular: Normal S1, S2. No rubs or gallops. Lungs: Clear to auscultation anteriorly. Abdomen: Normal bowel sounds, soft, nontender, no guarding/rebound. Extremities: No clubbing, cyanosis, or edema. Const alert, oriented x3 and no apparent distress General Appearance: well developed Orientation / Consciousness: oriented to person, oriented to place and oriented to time HEENT normocephalic Neck no lymphadenopathy Resp no use of accessory muscles Auscultation: diminished lung sounds Cardio Cardio Narrative: distant GI Auscultation: normoactive bowel sounds Skin no rashes or lesions noted Neuro Sensorium / Orientation: awake and alert Assessment & Plan Assessment/Plan (1) ESRD (end stage renal disease) on dialysis: (2) Hyperkalemia: (3) Hypertension: (4) Secondary hyperparathyroidism: PLAN: Plan Impression/Plan: The patient is a 59-year-old female with past history of ESRD, type 2 diabetes mellitus, hypertension, CAD, seizure disorder, hypothyroidism, hyperlipidemia, GERD, major depressive disorder. The patient is admitted to the hospital on 09/13/2024 for treatment of VRE UTI. Patient is also being treated for recurrent diabetic foot infection. There is plan for right lateral ankle wound debridement with application of graft on 09/19/2024. Nephrology is following for ESRD and dialysis management. ESRD. Patient dialyzes on MWF schedule at [facility]. Patient is followed at outpatient dialysis center by Dr. Anderson. We will continue dialysis on MWF schedule while patient is admitted to the hospital. The patient was dialyzed yesterday on 09/19/2024 and tolerated well. We used 2K dialysate. There is no need for dialysis today. Next dialysis is planned for tomorrow on 09/21/2024. Hyperkalemia. The patient had mild hyperkalemia with potassium level of 5.3 mmol/L on 09/17/2024. Hyperkalemia is secondary to ESRD. We are using 2K dialysate with hemodialysis. Potassium level has improved and should remain stable with consistent hemodialysis. Recheck potassium level tomorrow. Hypertension. BP is controlled. Continue current target weight with dialysis along with antihypertensives. Secondary hyperparathyroidism. Patient is on calcitriol on MWF. Phosphorus was only 2.1 mg/dL on 09/19/2024, likely because of poor oral intake. We are holding sevelamer for now Will recheck calcium/phosphorus level again tomorrow. Nephrology plan will be discussed with Dr. Prado.
[2024-09-20] MEDS: Senna/Docusate Sodium 1 Tablet 2 TABLET PO ×2 (10:32→21:22)
[2024-09-20] MEDS: amLODIPine 5 MG Tablet PO (10:33)
[2024-09-20] MEDS: levETIRAcetam 500 MG Tablet PO ×2 (10:33→21:15)
[2024-09-20] MEDS: Aspirin 81 MG TAB.CHEW PO (10:37)
[2024-09-20] MEDS: Lactobacillis Acidophilus 1 CAP PO ×4 (10:37→21:15)
[2024-09-20] MEDS: Ascorbic Acid 500 MG Tablet PO ×2 (10:38→21:15)
--- NOTE | 2024-09-20 10:42 | PN.ID_ITS ---
Physical Exam Narrative C/o pain in foot, no fever Const alert and no apparent distress General Appearance: cooperative Resp normal air movement and clear to auscultation bilaterally Cardio regular rate and regular rhythm GI soft to palpation, non-tender and non-distended Skin Skin Narrative: R foot wrapped ID ID: Route of nutrition/ use of supplements: [] Nutritional Intake: [] IV Site: [] Tirado Catheter: [] Assessment & Plan Assessment/Plan (1) ESRD (end stage renal disease) on dialysis: (2) VRE (vancomycin resistant enterococcus) culture positive: PLAN: Reviewed [facility] records. Recent admit with strep bacteremia, R ankle infection, and cdiff. On dapto for VRE in ucx. Wound cx with staph and entero coccus. OR with Dr. Julian 09/19/24 for I&D down to muscle/tendon. Will follow
[2024-09-20] MEDS: Juven (unflavored) Packet 1 PACKET PO ×2 (10:46→18:19)
[2024-09-20] MEDS: Glucerna Shake 120 ML LIQUID PO ×2 (10:56→18:15)
[2024-09-20 11:16] LABS: Bedside Glucose 85 mg/dL (74-106)
--- NOTE | 2024-09-20 12:03 | CASEMGMT ---
Discharge Planning Updates sent to [employer] for them to obtain skilled auth. Note sent that pt will return intermediate if medically ready before auth is rec'd (she is a lynne bedhold). Rekha Moore DC Planning Asst.
--- NOTE | 2024-09-20 14:32 | WOUNDNOTE ---
wound photo: right lateral ankle/foot
[2024-09-20 17:27] LABS: Bedside Glucose 146 mg/dL (74-106)
--- NOTE | 2024-09-20 20:06 | NURSING ---
patient doesn't have an IV and is refusing to have a new one inserted.
[2024-09-20] MEDS: Insulin Lispro 100 UNIT/ML INSULN.PEN SC (21:13)
[2024-09-20] MEDS: MELATONIN 3 MG TABLET PO (21:15)
[2024-09-20 21:49] LABS: Bedside Glucose 169 mg/dL (74-106)
[2024-09-21] VITALS (16 sets, daily range): BP systolic 113–210; BP diastolic 42–73; PULSE 64–77; RESP 16–18; TEMP 36.4–36.8; O2SAT 94–97; BMI 26.4; BMI 26.8
[2024-09-21] MEDS: hydrALAZINE 50 MG Tablet PO ×2 (05:12→14:09)
[2024-09-21] MEDS: Levothyroxine 25 MCG TABLET PO (05:13)
[2024-09-21] MEDS: Acetaminophen 325 MG Tablet 650 MG PO (05:13)
[2024-09-21] MEDS: Sucralfate 1 GM Tablet PO ×2 (05:13→16:55)
[2024-09-21 06:41] LABS: Bedside Glucose 98 mg/dL (74-106)
--- NOTE | 2024-09-21 07:19 | PN.HOSP_ITS ---
Reason for Visit Reason for Visit: Diagnoses Hyperkalemia (09/13/24) Essential (primary) hypertension (09/13/24) Cellulitis of right lower limb (09/13/24) Non-pressure chronic ulcer of right ankle with necrosis of muscle (09/13/24) Non-pressure chronic ulcer of other part of right foot with necrosis of muscle (09/13/24) End stage renal disease (09/13/24) Secondary hyperparathyroidism of renal origin (09/13/24) Acute cystitis without hematuria (09/13/24) Urinary tract infection, site not specified (09/13/24) Generalized abdominal pain (09/13/24) Carrier of other specified bacterial diseases (09/13/24) Dependence on renal dialysis (09/13/24) Subjective Subjective Seen on HD. Objective Data Objective Data Vital Signs: Vital Signs Temp Pulse Resp BP Pulse Ox O2 Del Method O2 Flow Rate 36.5 C L 69 18 132/65 H 97 Nasal Cannula 2 09/21/24 02:32 09/21/24 05:12 09/21/24 02:32 09/21/24 05:12 09/21/24 02:32 09/21/24 02:32 09/21/24 02:32 Oxygen Flow Rate (L/min) 2 Oxygen Delivery Method Nasal Cannula Weight: 74.5 kg Body Mass Index (BMI) 26.4 Intake & Output: Intake and Output for Last 24 Hours 09/19/24 09/20/24 09/21/24 23:59 23:59 23:59 Intake Total 146 / 346 980 / 980 300 / 300 Output Total 4800 / 4800 Balance -4654 / -4454 980 / 980 300 / 300 Lab / Micro Data 09/21/24 08:08 09/21/24 08:08 Labs: Laboratory Results - last 24 hr 09/20/24 10:52: POC Glucose 85 09/20/24 17:09: POC Glucose 146 H 09/20/24 21:09: POC Glucose 169 H 09/21/24 06:23: POC Glucose 98 Micro: Microbiology 09/17/24 Unknown Wound - Right Foot Gram Stain - Final 09/17/24 Unknown Wound - Right Foot Wound Culture - Final No growth aerobically. 09/17/24 Unknown Wound - Right Foot Anaerobic Culture - Preliminary No growth in 48 hours. 09/19/24 14:17 Wound - Ankle Gram Stain - Final 09/13/24 16:05 Blood Culture (Wb) - Venous Blood Culture - Final No growth in 5 days. 09/13/24 15:55 Blood Culture (Wb) - Venous Blood Culture - Final No growth in 5 days. 09/13/24 16:58 Blood Culture (Wb)#3 - Anticubital Right Blood Culture - Final No growth in 5 days. 09/14/24 07:50 Wound - Right Foot Gram Stain - Final 09/14/24 07:50 Wound - Right Foot Wound Culture - Final Staphylococcus auricularis Enterococcus faecalis 09/13/24 16:18 Urine, Clean Catch Urine Culture - Final Culture exhibits no growth. Physical Exam Const no apparent distress Constitutional Narrative: sleeping, did not awake to mild stimulation. On HD. HEENT head/scalp atraumatic and moist oral mucous membranes Resp normal respiratory effort, no retractions, no use of accessory muscles and clear to auscultation bilaterally Cardio regular rate, regular rhythm, S1 normal heart sound and S2 normal heart sound GI normal to inspection, nondistended, normoactive bowel sounds, soft to palpation, non-tender and non-distended Extremity normal to inspection Assessment & Plan Assessment/Plan (1) VRE (vancomycin resistant enterococcus) culture positive: (2) Acute cystitis: PLAN: Plan Acute cystitis with VRE * Infectious disease following. UA on admit with 100 leukocyte esterase, negative nitrites, 1+ bacteria. Urine culture at [facility] reportedly grew VRE. Urine culture from 09/13 negative (not positive as mentioned in note on 09/17). * On daptomycin recurrent diabetic foot infection * Noted to have recent complicated hospitalization at [facility] in [place]. Hospitalization was complicated by strep bacteremia, right ankle infection and C. difficile. Reportedly completed 8 days of p.o. vancomycin while there and completed the last 2 days of treatment at [facility]. Per ID, if patient does develop recurrent diarrhea would plan to treat with p.o. vancomycin but patient has not had any diarrhea since admission. * Wound cx showing Staph auricularis and E faecalis (VSE) * Podiatry consulted. 09/19, pt underwent debridement down to and including level of muscle. * on Daptomycin ESRD on HD * Nephrology following. On HD Tuesday Acute on chronic debility * PT/OT/case management following. Was recently discharged to [facility] nursing [facility] after hospitalization at [facility]. If patient needs IV antibiotics, would need pre-CERT to return to skilled level of care there. If not, can return to long-term care there. Chronic medical conditions: * Chronic anemia: Hemoglobin stable at baseline around 8-9. * Type 2 diabetes mellitus: Treating with sliding scale insulin with meals while inpatient. stable. * CAD with stenting, hypertension, hyperlipidemia: Continue home aspirin, statin, amlodipine, Coreg, hydralazine. * Seizure disorder: Continue home Keppra. * Hypothyroidism: Continue home Synthroid. * Chronic back pain: Continue home oxycodone as needed. * GERD: Continue home PPI and sucralfate. * Depression with anxiety: Stable. Continue home Paxil and Ativan as needed. DVT prophylaxis: Heparin subcu CODE STATUS: Full code, verified Charges/Coding Visit Charges Inpatient E&M: 94926 Subs Hosp L2
--- NOTE | 2024-09-21 08:18 | NURSING ---
biscuitware brusher at bedside doing dialysis with pt. RN Dannie said to wait to give morning medications until after dialysis is complete.
[2024-09-21 08:36] LABS: Absolute Lymphocyte Count 1.01 X10^3/uL (0.83-4.51); Absolute Neutrophil Count 3.5 X10^3/uL (2.0-7.7); Basophil# 0.05 X10^3/uL; Basophil% 0.9 % (0-1); Eosinophil# 0.28 X10^3/uL; Hematocrit 25.5 % (37-47); Hemoglobin 7.8 g/dL (12.0-15.0); Lymphocyte # 1.01 X10^3/ul (0.83-4.51); Mean Corp Hgb Conc 30.6 g/dL (32-36); Mean Corpuscular Hgb 30.2 pg (27.0-32.0); Mean Corpuscular Volume 98.8 fL (81-99); Mean Platelet Vol. 9.3 fl (6.2-12.0); Monocyte# 0.72 X10^3/uL; Monocyte% 12.9 % (0-10); NRBC Flagged by Analyzer 0 % (0-5); Neutrophil # 3.46 X10^3/uL (2.7-7.7); Neutrophil % 61.8 % (47-70); Platelet Count 395 K/mm3 (150-450); RBC Distribution Width CV 16.9 % (11.6-14.6); RBC Distribution Width SD 60.7 fl (35.1-43.9); Red Blood Count 2.58 M/mm3 (4.2-5.4); White Blood Count 5.6 K/mm3 (4.4-11.0)
[2024-09-21] MEDS: 0.9% Normal Saline 1,000 ML IV.SOLN. 1000 ML OPERA.SITE (08:46)
[2024-09-21] MEDS: Heparin 10,000 UNITS/10 ML Vial IV (08:47)
[2024-09-21 08:57] LABS: Anion Gap 4 (5-15); BUN 52 mg/dL (7-18); BUN/Creat Ratio 9.1 RATIO (10-20); Calcium,Total 9.2 mg/dL (8.5-10.1); Chloride 100 mmol/L (98-107); EST Glomerular Filtration Rate 8 mL/min (>60); Est Glom Filt Rate - Afr Amer 10 mL/min (>60); Estimated Creatinine Clearance 11.05 ml/min; Glucose 98 mg/dL (74-106); Phosphorus 2.1 mg/dL (2.5-4.9); Sodium Level 132 mmol/L (136-145)
--- NOTE | 2024-09-21 10:15 | CASEMGMT ---
Social Work- SW met with pt to update on discharge timeline. Pt was being dialyzed and tearfully reported needing pain meds/being in pain. Bedside nurse reports pt has meds on the way. SW offered support via verbal encouragement, distraction and co-regulating. Pt agreeable to discharge plans. SW remains available to follow. ERIN Johnson
[2024-09-21] MEDS: oxyCODONE 5 MG Tablet 2.5 MG PO (10:25)
--- NOTE | 2024-09-21 10:45 | PN.RENAL_ITS ---
Subjective Subjective Following for ESRD. The patient is seen during HD. She denies CP, SOB or nausea. Objective Data Objective Data Vital Signs: Vital Signs Temp Pulse Resp BP Pulse Ox O2 Del Method O2 Flow Rate 97.7 F L 67 18 134/61 H 95 Nasal Cannula 2 09/21/24 10:30 09/21/24 10:30 09/21/24 10:30 09/21/24 10:30 09/21/24 10:30 09/21/24 10:30 09/21/24 10:30 Oxygen Flow Rate (L/min) 2 Oxygen Delivery Method Nasal Cannula Weight: 75.7 kg Body Mass Index (BMI) 26.8 Intake & Output: Intake and Output for Last 24 Hours 09/19/24 09/20/24 09/21/24 23:59 23:59 23:59 Intake Total 146 / 346 980 / 980 300 / 300 Output Total 4800 / 4800 Balance -4654 / -4454 980 / 980 300 / 300 Lab / Micro Data 09/21/24 08:08 09/21/24 08:08 Labs: Laboratory Results - last 24 hr 09/20/24 10:52: POC Glucose 85 09/20/24 17:09: POC Glucose 146 H 09/20/24 21:09: POC Glucose 169 H 09/21/24 06:23: POC Glucose 98 09/21/24 08:08: WBC 5.6, RBC 2.58 L, Hgb 7.8 L, Hct 25.5 L, MCV 98.8, MCH 30.2, MCHC 30.6 L, RDW Std Deviation 60.7 H, RDW Coeff of Fior 16.9 H, Plt Count 395, MPV 9.3, Immature Gran % (Auto) 1.400 H, Neut % (Auto) 61.8, Lymph % (Auto) 18.0 L, Beaver % (Auto) 12.9 H, Eos % (Auto) 5.0, Baso % (Auto) 0.9, Absolute Neuts (auto) 3.5, Absolute Lymphs (auto) 1.01, Nucleated RBC % 0, Sodium 132 L, Potassium 5.0, Chloride 100, Carbon Dioxide 28.0, Anion Gap 4 L, BUN 52 H, C reatinine 5.70 H, Estim Creat Clear Calc 11.05, Est GFR (MDRD) Af Amer 10 L, Est GFR (MDRD) Non-Af 8 L, BUN/Creatinine Ratio 9.1 L, Glucose 98, Calcium 9.2, P hosphorus 2.1 L Micro: Microbiology 09/17/24 Unknown Wound - Right Foot Gram Stain - Final 09/17/24 Unknown Wound - Right Foot Wound Culture - Final No growth aerobically. 09/17/24 Unknown Wound - Right Foot Anaerobic Culture - Preliminary No growth in 48 hours. 09/19/24 14:17 Wound - Ankle Gram Stain - Final 09/13/24 16:05 Blood Culture (Wb) - Venous Blood Culture - Final No growth in 5 days. 09/13/24 15:55 Blood Culture (Wb) - Venous Blood Culture - Final No growth in 5 days. 09/13/24 16:58 Blood Culture (Wb)#3 - Anticubital Right Blood Culture - Final No growth in 5 days. 09/14/24 07:50 Wound - Right Foot Gram Stain - Final 09/14/24 07:50 Wound - Right Foot Wound Culture - Final Staphylococcus auricularis Enterococcus faecalis 09/13/24 16:18 Urine, Clean Catch Urine Culture - Final Culture exhibits no growth. Physical Exam Narrative General appearance: Ill-appearing. NAD. HEENT: Normocephalic, atraumatic. PERRLA, EOMI. Mucous membrane moist. Cardiovascular: Normal S1, S2. No rubs or gallops. Lungs: Clear to auscultation anteriorly. Abdomen: Normal bowel sounds, soft, nontender, no guarding/rebound. Extremities: No clubbing, cyanosis, or edema. Const alert, oriented x3 and no apparent distress General Appearance: well developed Orientation / Consciousness: oriented to person, oriented to place and oriented to time HEENT normocephalic Neck no lymphadenopathy Resp no use of accessory muscles Auscultation: diminished lung sounds Cardio Cardio Narrative: distant GI Auscultation: normoactive bowel sounds Skin no rashes or lesions noted Neuro Sensorium / Orientation: awake and alert Assessment & Plan Assessment/Plan (1) ESRD (end stage renal disease) on dialysis: (2) Hyperkalemia: (3) Hypertension: (4) Secondary hyperparathyroidism: PLAN: Plan Impression/Plan: The patient is a 59-year-old female with past history of ESRD, type 2 diabetes mellitus, hypertension, CAD, seizure disorder, hypothyroidism, hyperlipidemia, GERD, major depressive disorder. The patient is admitted to the hospital on 09/13/2024 for treatment of VRE UTI. Patient is also being treated for recurrent diabetic foot infection. There is plan for right lateral ankle wound debridement with application of graft on 09/19/2024. Nephrology is following for ESRD and dialysis management. ESRD. Patient dialyzes on MWF schedule at [facility]. Patient is followed at outpatient dialysis center by Dr. Anderson. We will continue dialysis on MWF schedule while patient is admitted to the hospital. The patient is seen on hemodialysis. I supervised the dialysis procedure. We are using 2K dialysate. Will aim for ultrafiltration Next dialysis is planned for tomorrow on 09/21/2024. Hyperkalemia. The patient had mild hyperkalemia with potassium level of 5.3 mmol/L on 09/17/2024. Hyperkalemia is secondary to ESRD. We are using 2K dialysate with hemodialysis. Potassium level has improved overall and should remain stable with consistent hemodialysis. Recheck potassium level tomorrow. Hypertension. BP is controlled. Continue current target weight with dialysis along with antihypertensives. Secondary hyperparathyroidism. Patient is on calcitriol on MWF. Phosphorus remains on the lower side of 2.1 mg/dL on 09/21/2024, likely because of poor oral intake. I held sevelamer on 09/19/2024. However, the patient is still on another phosphorus binder, calcium acetate. I will stop calcium acetate. Since phosphorus is just slightly low, there is no need to start phosphorus binder. Encourage oral intake. Will recheck calcium/phosphorus level again early next week. Nephrology plan will be discussed with Dr. Prado.
[2024-09-21 11:29] LABS: Bedside Glucose 90 mg/dL (74-106)
[2024-09-21] MEDS: PureFlow B 2K Dialysis Soln 1 BAG 6 BAG PF ×2 (13:38→13:39)
[2024-09-21] MEDS: Aspirin 81 MG TAB.CHEW PO (14:06)
[2024-09-21] MEDS: Folic Acid 1 MG Tablet PO (14:07)
[2024-09-21] MEDS: amLODIPine 5 MG Tablet PO (14:07)
[2024-09-21] MEDS: Calcitriol 0.25 MCG Capsule 0.5 MCG PO (14:08)
[2024-09-21] MEDS: Senna/Docusate Sodium 1 Tablet 2 TABLET PO (14:08)
[2024-09-21] MEDS: Paroxetine 20 MG Tablet PO (14:08)
[2024-09-21] MEDS: Lactobacillis Acidophilus 1 CAP PO ×2 (14:09→17:00)
[2024-09-21] MEDS: Ascorbic Acid 500 MG Tablet PO (14:09)
--- NOTE | 2024-09-21 14:15 | PCM.PN.ID ---
Physical Exam Narrative Sleeping this afternoon, no fever Const no apparent distress Resp normal air movement and clear to auscultation bilaterally Cardio regular rate and regular rhythm GI soft to palpation, non-tender and non-distended Skin Skin Narrative: foot wrapped ID ID: Route of nutrition/ use of supplements: [] Nutritional Intake: [] IV Site: [] Tirado Catheter: [] Assessment & Plan Assessment/Plan (1) ESRD (end stage renal disease) on dialysis: (2) VRE (vancomycin resistant enterococcus) culture positive: PLAN: [facility]. Recent admit with strep bacteremia, R ankle infection, and cdiff. On dapto for VRE in ucx. Wound cx with staph and enterococcus. OR with Dr. Julian 09/19/24 for I&D down to muscle/tendon. Ok for discharge on 2 weeks po linezolid 600mg bid. Will follow, d/w correctional casework specialist
--- NOTE | 2024-09-21 15:01 | TREXTCAR_ITS ---
Diet Diet Order/Speech Therapy: 09/19/24 15:18 Diet: Carbohydrate Controlled Dietary Modifications:: Consistent Carbohydrate Type of Dietary Supplement:: Nepro Diet Comments: 1/2 cup nepro tid w/ meals Routine Orders/Code Status Routine Lab Work: CBC and BMP Code Status: Full Code DC O2, CPAP, BIPAP needs Home O2 Instructions: 2 Additional Home O2 Discharge instructions: Yes Type of respiratory needs?: Oxygen Oxygen frequency: Continuous Continuous oxygen liters per minute: 2 Wound(s) LEFT TAVERAS: Wound Type: Abrasion Dressing Change: foam dressing LATERAL RIGHT FOOT/ANKLE: Wound Type: Neuropathic/Diabetic Foot Ulcer Dressing Change: Adaptic left foot: Wound Type: Skin Tear right ac: Wound Type: Puncture Therapies Weight Bearing: Non weight bearing Extremity Affected:: Right Lower Problem/Diagnosis (1) ESRD (end stage renal disease) on dialysis: Status: Acute Code(s): N18.6 - End stage renal disease; Z99.2 - Dependence on renal dialysis (2) VRE (vancomycin resistant enterococcus) culture positive: Status: Acute Code(s): Z22.39 - Carrier of other specified bacterial diseases Plan Acute cystitis with VRE * Infectious disease following. UA on admit with 100 leukocyte esterase, negative nitrites, 1+ bacteria. Urine culture at [facility] reportedly grew VRE. Urine culture from 09/13 negative (not positive as mentioned in note on 09/17). * On daptomycin recurrent diabetic foot infection * Noted to have recent complicated hospitalization at [facility] in [place]. Hospitalization was complicated by strep bacteremia, right ankle infection and C. difficile. Reportedly completed 8 days of p.o. vancomycin while there and completed the last 2 days of treatment at [facility]. Per ID, if patient does develop recurrent diarrhea would plan to treat with p.o. vancomycin but patient has not had any diarrhea since admission. * Wound cx showing Staph auricularis and E faecalis (VSE) * Podiatry consulted. 09/19, pt underwent debridement down to and including level of muscle. * on Daptomycin ESRD on HD * Nephrology following. On HD Tuesday Acute on chronic debility * PT/OT/case management following. Was recently discharged to [facility] after hospitalization at [facility]. If patient needs IV antibiotics, would need pre-CERT to return to skilled level of care there. If not, can return to long-term care there. Chronic medical conditions: * Chronic anemia: Hemoglobin stable at baseline around 8-9. * Type 2 diabetes mellitus: Treating with sliding scale insulin with meals while inpatient. stable. * CAD with stenting, hypertension, hyperlipidemia: Continue home aspirin, statin, amlodipine, Coreg, hydralazine. * Seizure disorder: Continue home Keppra. * Hypothyroidism: Continue home Synthroid. * Chronic back pain: Continue home oxycodone as needed. * GERD: Continue home PPI and sucralfate. * Depression with anxiety: Stable. Continue home Paxil and Ativan as needed. DVT prophylaxis: Heparin subcu CODE STATUS: Full code, verified Allergies/Procedures Done in Hospital Allergies oxycodone (From OxyContin) Allergy (Verified 09/13/24 15:36) sob Penicillins Allergy (Verified 09/13/24 15:36) swelling in throat vancomycin Allergy (Verified 09/13/24 15:36) Itching metronidazole Adverse Reaction (Verified 09/13/24 15:36) Nausea Procedures: - (Excisional debridement down to and including level of muscle) Type of Care/Length of Stay Estimated LOS: Convalescent Care Less Than 30 days Type of Care Needed: Skilled Rehab Potential: Fair Prognosis: Fair Additional Orders/Day of Discharge Day of Discharge: 09/21/24 Dietary and Speech Recommendations Dietitian Recommendations/Changes: Resume Renal General diet after procedure. Will continue 4 oz nepro carb steady w/ meals. Will add Ted BID w/ medpass. Discharge Plan Admission Admit Date/Time: 09/13/24 19:33 Primary Reason for Your Visit: diabetic foot wound. Attending Provider: Kali Prado Primary Care Provider: Raúl Eric Consulting Providers: Rodney Bridges; Rodney Yates; Neal Walton; Kike Tello; Angel Joel; Gustavo Julian Discharge Orders/Prescriptions Prescriptions: New linezolid 600 mg tablet 600 mg PO Q12H 14 Days Qty: 28 0RF L.acidoph,saliva-B.bif-S.therm 175 mg Capsule 1 cap PO 4X/DAY Qty: 0 0RF Glucerna 1.2 Howie 0.06-1.2 gram-kcal/mL Liquid 120 ml PO TIDCM Qty: 0 0RF Ted (with collagen) 7-7-1.5 gram Powder In Packet 1 packet PO BIDCM Qty: 0 0RF Continued paroxetine HCl 20 mg tablet 20 mg PO DAILY Patient Comments: TAKE 1 TABLET BY MOUTH EVERY DAY IN THE EVENING sennosides-docusate sodium [Stool Softener-Stimulant Laxat] 8.6-50 mg Tablet 2 tab PO BID PRN PRN (Reason: Constipation) Qty: 0 0RF ascorbic acid (vitamin C) [Vitamin C] 500 mg Tablet 500 mg PO BID pantoprazole 40 mg tablet,delayed release (DR/EC) 40 mg PO BIDCM gabapentin 100 mg capsule 100 mg PO .COMPLEX PRN (Reason: pain) Rx Instructions: 100 mg orally 3 times a week Tuesday, Tuesday and Tuesday atorvastatin 40 mg tablet 40 mg PO DAILY carvedilol 25 mg tablet 25 mg PO BID melatonin 3 mg Tablet 3 mg PO QHS PRN PRN (Reason: Insomnia) Qty: 0 0RF hydralazine 50 mg Tablet 50 mg PO TID Qty: 0 0RF menthol-zinc oxide [Calmoseptine] 0.44-20.6 % Ointment 1 applic topical BID Qty: 0 0RF Protocol: *Topical Application Instructions APPLICATION INSTRUCTIONS: BUTTOCKS sucralfate 1 gram Tablet 1 g PO TID@0700,1100,1600 Qty: 0 0RF acetaminophen 325 mg Tablet 650 mg PO Q6H PRN (Reason: fever or pain) levetiracetam 500 mg Tablet 500 mg PO BID 30 Days Qty: 60 2RF diphenhydramine HCl [Banophen] 25 mg Capsule 12.5 mg PO Q6H PRN PRN (Reason: Itching) Qty: 0 0RF ipratropium-albuterol 0.5 mg-3 mg(2.5 mg base)/3 mL solution for nebulization 3 ml inhalation Q4H sevelamer carbonate 800 mg tablet 1,600 mg PO TID ondansetron HCl 4 mg tablet 4 mg PO Q4H PRN PRN (Reason: nausea and vomiting) insulin lispro [Humalog KwikPen Insulin] 100 unit/mL Insulin Pen 10 unit subcut TIDAC Protocol: 4. Sliding Scale Insulin High-Med Dosing Condition: 150-199 mg/dl = 2 units Condition: 200-259 mg/dl = 4 units Condition: 260-324 mg/dl = 6 units Condition: 325-374 mg/dl = 8 units Condition: 375-409 mg/dl = 10 units Condition: 410-449 mg/dl = 11 units Condition: Greater than 449 call physician Protocol Text: Suggested for: - Patients on Total Daily Insulin Dose of 56-80 units - Patient who are known to be insulin resistant or septic HIGH MEDIUM DOSING ALGORITHM oxycodone 5 mg tablet 2.5 mg PO Q8H PRN (Reason: pain) 3 Days Qty: 10 0RF calcium acetate(phosphat bind) 667 mg capsule 676 mg PO TID Patient Comments: TAKE 1 CAPSULE BY MOUTH THREE TIMES A DAY WITH FOOD folic acid 800 mcg tablet 0.8 mg PO DAILY Patient Comments: TAKE 1 TABLET BY MOUTH EVERY DAY levothyroxine 25 mcg tablet 25 mcg PO DAILY Patient Comments: TAKE 1 TABLET BY MOUTH EVERY DAY BEFORE BREAKFAST amlodipine 5 mg tablet 5 mg PO DAILY calcitriol 0.5 mcg capsule 0.5 mcg PO .COMPLEX Rx Instructions: 0.5 mcg orally three times a week; aspirin 81 mg capsule 81 mg PO DAILY Qty: 30 1RF Changed lorazepam 0.5 mg Tablet 0.5 mg PO Q12H PRN (Reason: anxiety) Qty: 6 0RF Discontinued ertapenem 1 gram recon soln 1 g IV .MWF 35 Days Qty: 15 0RF Rx Instructions: stop date 08/08/24. Dx: R foot osteo. Ertapenem dosed with HD - 1gm on Mon-Wed-Fri. Weekly bmp, cbc, LFT, CK, and esr. Fax to [phone]. nitroglycerin [Nitrostat] 0.4 mg tablet, sublingual 0.4 mg sublingual Q5M Rx Instructions: do not exceed 3 doses per episode Referrals / Follow Up: Gustavo Julian DPM [Med Staff - Active Staff] - Within 1 Week Raúl Eric MD [Primary Care Provider] - Within 2 Weeks Disposition Disposition (needs filled in before D/C Order can be placed): Intermediate Facility
--- NOTE | 2024-09-21 15:11 | DS.PCM_ITS ---
Providers Date of Admission: 09/13/24 Primary Care Physician: Dr. Raúl Eric MD Consultations 09/13/24 21:07 Consult: Infectious Disease Routine Consulting Provider: Kike Tello Reason for Consult: VRE UTI. EMERGENT Consult: No MD Notified: Yes Date Notified: 09/13/24 Time Notified: 19:42 Method of Notification: Text Consult: Nephrology Routine Consulting Provider: Angel Joel Reason for Consult: ESRD on HD. EMERGENT Consult: No MD Notified: Yes Date Notified: 09/14/24 Time Notified: 07:46 Method of Notification: Answering Service 09/14/24 02:46 Consult: Onc/Wound/house decorator Routine Comment: Reason for Consult:: DIABETIC ANKLE/FOOT WOUND 09/17/24 07:46 Consult: Podiatry Routine Consulting Provider: Gustavo Julian Reason for Consult: R ankle infection EMERGENT Consult: No MD Notified: Yes Date Notified: 09/17/24 Time Notified: 09:40 Method of Notification: Text Reason For Visit: VRE UTI Diagnosis Discharge Diagnosis (1) ESRD (end stage renal disease) on dialysis: Status: Acute Code(s): N18.6 - End stage renal disease; Z99.2 - Dependence on renal dialysis (2) VRE (vancomycin resistant enterococcus) culture positive: Status: Acute Code(s): Z22.39 - Carrier of other specified bacterial diseases Plan Acute cystitis with VRE. * Infectious disease following. UA on admit with 100 leukocyte esterase, negative nitrites, 1+ bacteria. Urine culture at [facility] reportedly grew VRE. Urine culture from 09/13 negative (not positive as mentioned in note on 09/17). * On daptomycin recurrent diabetic foot infection * Noted to have recent complicated hospitalization at [facility] in [place]. Hospitalization was complicated by strep bacteremia, right ankle infection and C. difficile. Reportedly completed 8 days of p.o. vancomycin while there and completed the last 2 days of treatment at [facility]. Per ID, if patient does develop recurrent diarrhea would plan to treat with p.o. vancomycin but patient has not had any diarrhea since admission. * Wound cx showing Staph auricularis and E faecalis (VSE) * Podiatry consulted. 09/19, pt underwent debridement down to and including level of muscle. * on Daptomycin ESRD on HD * Nephrology following. On HD Tuesday Acute on chronic debility * PT/OT/case management following. Was recently discharged to [facility] nursing [facility] after hospitalization at [facility]. If patient needs IV antibiotics, would need pre-CERT to return to skilled level of care there. If not, can return to long-term care there. Chronic medical conditions: * Chronic anemia: Hemoglobin stable at baseline around 8-9. * Type 2 diabetes mellitus: Treating with sliding scale insulin with meals while inpatient. stable. * CAD with stenting, hypertension, hyperlipidemia: Continue home aspirin, statin, amlodipine, Coreg, hydralazine. * Seizure disorder: Continue home Keppra. * Hypothyroidism: Continue home Synthroid. * Chronic back pain: Continue home oxycodone as needed. * GERD: Continue home PPI and sucralfate. * Depression with anxiety: Stable. Continue home Paxil and Ativan as needed. CODE STATUS: Full code, verified Medications at Discharge Home Medications paroxetine HCl 20 mg tablet 20 mg PO DAILY DEPRESSION 07/07/21 sennosides 8.6 mg-docusate sodium 50 mg tablet (Stool Softener-Stimulant Laxative) 2 tab PO BID PRN PRN Constipation #0 tabs 04/24/22 ascorbic acid (vitamin C) 500 mg tablet (Vitamin C) 500 mg PO BID supplement 05/05/22 pantoprazole 40 mg tablet,delayed release 40 mg PO BIDCM GERD 07/19/22 gabapentin 100 mg capsule 100 mg PO .COMPLEX PRN pain 11/26/23 amlodipine 5 mg tablet 5 mg PO DAILY bp 12/16/23 calcitriol 0.5 mcg capsule 0.5 mcg PO .COMPLEX on dialysis 12/16/23 calcium acetate(phosphat bind) 667 mg capsule 676 mg PO TID is on dialysis 12/16/23 folic acid 800 mcg tablet 0.8 mg PO DAILY supplement 12/16/23 levothyroxine 25 mcg tablet 25 mcg PO DAILY thyroid 12/16/23 aspirin 81 mg capsule 81 mg PO DAILY blood thinner #30 caps 12/26/23 atorvastatin 40 mg tablet 40 mg PO DAILY cholesterol 03/18/24 carvedilol 25 mg tablet 25 mg PO BID blood pressure 03/18/24 hydralazine 50 mg tablet 50 mg PO TID bp #0 tabs 05/21/24 melatonin 3 mg tablet 3 mg PO QHS PRN PRN Insomnia #0 tabs 05/21/24 menthol 0.44 %-zinc oxide 20.6 % topical ointment (Calmoseptine) 1 applic topical BID skin care #0 grams 05/21/24 sucralfate 1 gram tablet 1 g PO TID@0700,1100,1600 indigestion #0 tabs 05/21/24 acetaminophen 325 mg tablet 650 mg PO Q6H PRN fever or pain 07/09/24 diphenhydramine HCl 25 mg capsule (Banophen) 12.5 mg (1/2 x 25 mg) PO Q6H PRN PRN Itching #0 caps 07/10/24 levetiracetam 500 mg tablet 500 mg PO BID 30 days #60 tabs 07/10/24 insulin lispro 100 unit/mL subcutaneous pen (Humalog KwikPen (U-100) Insulin) 10 unit subcut TIDAC blood sugar 09/13/24 ipratropium 0.5 mg-albuterol 3 mg (2.5 mg base)/3 mL nebulization soln 3 ml inhalation Q4H 09/13/24 ondansetron HCl 4 mg tablet 4 mg PO Q4H PRN PRN nausea and vomiting 09/13/24 sevelamer carbonate 800 mg tablet 1,600 mg PO TID 09/13/24 L.acidophil,salivari-Bifido bifidum-Strep thermoph 175 mg capsule 1 cap PO 4X/DAY #0 caps 09/21/24 arginine 7 gram-glutam 7 gram-CaHMB 1.5 tamx-itdlj-bc-min oral pwd pkt (Ted (with collagen)) 1 packet PO BIDCM #0 ea 09/21/24 linezolid 600 mg tablet 600 mg PO Q12H 14 days #28 tabs 09/21/24 lorazepam 0.5 mg tablet 0.5 mg PO Q12H PRN anxiety #6 tabs 09/21/24 nutrition tx glu intol,lac-free,soy-fiber 0.06 gram-1.2 kcal/mL liquid (Glucerna 1.2 Howie) 120 ml PO TIDCM #0 mL 09/21/24 oxycodone 5 mg tablet 2.5 mg (1/2 x 5 mg) PO Q8H PRN pain 3 days #10 tabs 09/21/24 Hospital Course Operations - (Excisional debridement down to and including level of muscle) Procedures Dialysis Summary of Care Provided Minutes Spent on Discharge: 35 Weight / BMI Weight Weight: 74.7 kg Body Mass Index (BMI) 26.4 ABG / Lab / Microbiology Data 09/21/24 08:08 09/21/24 08:08 Laboratory: Laboratory Results - last 24 hr 09/20/24 17:09: POC Glucose 146 H 09/20/24 21:09: POC Glucose 169 H 09/21/24 06:23: POC Glucose 98 09/21/24 08:08: WBC 5.6, RBC 2.58 L, Hgb 7.8 L, Hct 25.5 L, MCV 98.8, MCH 30.2, MCHC 30.6 L, RDW Std Deviation 60.7 H, RDW Coeff of Fior 16.9 H, Plt Count 395, MPV 9.3, Immature Gran % (Auto) 1.400 H, Neut % (Auto) 61.8, Lymph % (Auto) 18.0 L, Stephenson % (Auto) 12.9 H, Eos % (Auto) 5.0, Baso % (Auto) 0.9, Absolute Neuts (auto) 3.5, Absolute Lymphs (auto) 1.01, Nucleated RBC % 0, Sodium 132 L, Potassium 5.0, Chloride 100, Carbon Dioxide 28.0, Anion Gap 4 L, BUN 52 H, C reatinine 5.70 H, Estim Creat Clear Calc 11.05, Est GFR (MDRD) Af Amer 10 L, Est GFR (MDRD) Non-Af 8 L, BUN/Creatinine Ratio 9.1 L, Glucose 98, Calcium 9.2, P hosphorus 2.1 L 09/21/24 11:10: POC Glucose 90 Microbiology: Microbiology 09/17/24 Unknown Wound - Right Foot Gram Stain - Final 09/17/24 Unknown Wound - Right Foot Wound Culture - Final No growth aerobically. 09/17/24 Unknown Wound - Right Foot Anaerobic Culture - Preliminary No growth in 48 hours. 09/19/24 14:17 Wound - Ankle Gram Stain - Final 09/13/24 16:05 Blood Culture (Wb) - Venous Blood Culture - Final No growth in 5 days. 09/13/24 15:55 Blood Culture (Wb) - Venous Blood Culture - Final No growth in 5 days. 09/13/24 16:58 Blood Culture (Wb)#3 - Anticubital Right Blood Culture - Final No growth in 5 days. 09/14/24 07:50 Wound - Right Foot Gram Stain - Final 09/14/24 07:50 Wound - Right Foot Wound Culture - Final Staphylococcus auricularis Enterococcus faecalis 09/13/24 16:18 Urine, Clean Catch Urine Culture - Final Culture exhibits no growth. D/C Instructions DC O2, CPAP, BIPAP Needs Home Oxygen Instructions: Home O2 discharge Instructions Type of respiratory needs? Oxygen 09/21/24 15:03 DC Oxygen Instruction Oxygen frequency Continuous 09/21/24 15:03 Continuous oxygen liters per 2 09/21/24 15:03 minute Additional Home O2 Discharge instructions: No DC home with Oxygen: No Meaningful Use Info Meaningful Use Meaningful Use Diagnoses (Choose all that apply): None applicable Ischemic Stroke Statin Dosing Therapy Reference: STATIN DOSE THERAPY REFERENCE: * Patients > 75 years receive moderate or high dose statin therapy. * Patients 75 years or YOUNGER should receive HIGH intensity statin dose unless contraindicated. You will be required to document reason for non-treatment if statin daily dose does not meet guidelines. HIGH DOSE STATIN THERAPY DAILY Atorvastatin > than or = to 40 mg Rosuvastatin > than or = to 20 mg Amlodipine + Atorvastatin > than or = to 2.5/40 mg Ezetimibe + Simvastatin 10/80 mg Simvastatin 80mg Discharge Plan Admission Admit Date/Time: 09/13/24 19:33 Primary Reason for Your Visit: diabetic foot wound. Attending Provider: Kali Prado Primary Care Provider: Raúl Eric Consulting Providers: Rodney Bridges; Rodney Yates; Neal Walton; Kike Tello; Angel Joel; Gustavo Julian Discharge Orders/Prescriptions Prescriptions: New linezolid 600 mg tablet 600 mg PO Q12H 14 Days Qty: 28 0RF L.acidoph,saliva-B.bif-S.therm 175 mg Capsule 1 cap PO 4X/DAY Qty: 0 0RF Glucerna 1.2 Howie 0.06-1.2 gram-kcal/mL Liquid 120 ml PO TIDCM Qty: 0 0RF Ted (with collagen) 7-7-1.5 gram Powder In Packet 1 packet PO BIDCM Qty: 0 0RF Continued paroxetine HCl 20 mg tablet 20 mg PO DAILY Patient Comments: TAKE 1 TABLET BY MOUTH EVERY DAY IN THE EVENING sennosides-docusate sodium [Stool Softener-Stimulant Laxat] 8.6-50 mg Tablet 2 tab PO BID PRN PRN (Reason: Constipation) Qty: 0 0RF ascorbic acid (vitamin C) [Vitamin C] 500 mg Tablet 500 mg PO BID pantoprazole 40 mg tablet,delayed release (DR/EC) 40 mg PO BIDCM gabapentin 100 mg capsule 100 mg PO .COMPLEX PRN (Reason: pain) Rx Instructions: 100 mg orally 3 times a week Tuesday, Tuesday and Tuesday atorvastatin 40 mg tablet 40 mg PO DAILY carvedilol 25 mg tablet 25 mg PO BID melatonin 3 mg Tablet 3 mg PO QHS PRN PRN (Reason: Insomnia) Qty: 0 0RF hydralazine 50 mg Tablet 50 mg PO TID Qty: 0 0RF menthol-zinc oxide [Calmoseptine] 0.44-20.6 % Ointment 1 applic topical BID Qty: 0 0RF Protocol: *Topical Application Instructions APPLICATION INSTRUCTIONS: BUTTOCKS sucralfate 1 gram Tablet 1 g PO TID@0700,1100,1600 Qty: 0 0RF acetaminophen 325 mg Tablet 650 mg PO Q6H PRN (Reason: fever or pain) levetiracetam 500 mg Tablet 500 mg PO BID 30 Days Qty: 60 2RF diphenhydramine HCl [Banophen] 25 mg Capsule 12.5 mg PO Q6H PRN PRN (Reason: Itching) Qty: 0 0RF ipratropium-albuterol 0.5 mg-3 mg(2.5 mg base)/3 mL solution for nebulization 3 ml inhalation Q4H sevelamer carbonate 800 mg tablet 1,600 mg PO TID ondansetron HCl 4 mg tablet 4 mg PO Q4H PRN PRN (Reason: nausea and vomiting) insulin lispro [Humalog KwikPen Insulin] 100 unit/mL Insulin Pen 10 unit subcut TIDAC Protocol: 4. Sliding Scale Insulin High-Med Dosing Condition: 150-199 mg/dl = 2 units Condition: 200-259 mg/dl = 4 units Condition: 260-324 mg/dl = 6 units Condition: 325-374 mg/dl = 8 units Condition: 375-409 mg/dl = 10 units Condition: 410-449 mg/dl = 11 units Condition: Greater than 449 call physician Protocol Text: Suggested for: - Patients on Total Daily Insulin Dose of 56-80 units - Patient who are known to be insulin resistant or septic HIGH MEDIUM DOSING ALGORITHM oxycodone 5 mg tablet 2.5 mg PO Q8H PRN (Reason: pain) 3 Days Qty: 10 0RF calcium acetate(phosphat bind) 667 mg capsule 676 mg PO TID Patient Comments: TAKE 1 CAPSULE BY MOUTH THREE TIMES A DAY WITH FOOD folic acid 800 mcg tablet 0.8 mg PO DAILY Patient Comments: TAKE 1 TABLET BY MOUTH EVERY DAY levothyroxine 25 mcg tablet 25 mcg PO DAILY Patient Comments: TAKE 1 TABLET BY MOUTH EVERY DAY BEFORE BREAKFAST amlodipine 5 mg tablet 5 mg PO DAILY calcitriol 0.5 mcg capsule 0.5 mcg PO .COMPLEX Rx Instructions: 0.5 mcg orally three times a week; aspirin 81 mg capsule 81 mg PO DAILY Qty: 30 1RF Changed lorazepam 0.5 mg Tablet 0.5 mg PO Q12H PRN (Reason: anxiety) Qty: 6 0RF Discontinued ertapenem 1 gram recon soln 1 g IV .MWF 35 Days Qty: 15 0RF Rx Instructions: stop date 08/08/24. Dx: R foot osteo. Ertapenem dosed with HD - 1gm on Mon-Wed-Fri. Weekly bmp, cbc, LFT, CK, and esr. Fax to [phone]. nitroglycerin [Nitrostat] 0.4 mg tablet, sublingual 0.4 mg sublingual Q5M Rx Instructions: do not exceed 3 doses per episode Referrals / Follow Up: Gustavo Julian DPM [Med Staff - Active Staff] - Within 1 Week Raúl Eric MD [Primary Care Provider] - Within 2 Weeks Disposition Disposition (needs filled in before D/C Order can be placed): [facility] Facility Charges/Coding Visit Charges Inpatient E&M: 49479 Disch Hosp >30min
--- NOTE | 2024-09-21 15:37 | CASEMGMT ---
Discharge Planning Discharge orders, signed med list, and transport time sent to [facility]. Physicians will transport patient by cot at 6p. SW, nursing, pt, and her niece (Yamel) updated. Rekha Moore DC Planning Asst.
--- NOTE | 2024-09-21 16:07 | CASEMGMT ---
Social Work- Physician updated and pt is ready for discharge today.? SW met with pt and they are agreeable to discharge plan as stated above.? DCA and bedside nurse notified of discharge. ERIN Johnson
[2024-09-21] MEDS: LORazepam 0.5 MG Tablet PO (16:55)
[2024-09-21] MEDS: Pantoprazole Sodium 40 MG Tablet PO (16:58)
[2024-09-21] MEDS: Carvedilol 25 MG Tablet PO (16:58)
[2024-09-21 17:20] LABS: Bedside Glucose 130 mg/dL (74-106)
--- NOTE | 2024-09-21 18:05 | PN_ITS ---
Subjective Subjective Patient seen bedside 2 days postop right ankle wound debridement with application of graft. Patient denies constitutional symptoms. Denies any changes overnight. Pain controlled at current. Objective Data Objective Data Vital Signs: Vital Signs Temp Pulse Resp BP Pulse Ox O2 Del Method O2 Flow Rate 98.3 F 77 16 133/57 H 94 Nasal Cannula 2 09/21/24 16:41 09/21/24 16:41 09/21/24 16:41 09/21/24 16:41 09/21/24 16:41 09/21/24 16:46 09/21/24 16:46 Oxygen Flow Rate (L/min) 2 Oxygen Delivery Method Nasal Cannula Weight: 74.7 kg Body Mass Index (BMI) 26.4 Intake & Output: Intake and Output for Last 24 Hours 09/19/24 09/20/24 09/21/24 23:59 23:59 23:59 Intake Total 146 / 346 980 / 980 300 / 300 Output Total 4800 / 4800 1999 / 1999 Balance -4654 / -4454 980 / 980 -1700 / -1700 Lab / Micro Data 09/21/24 08:08 09/21/24 08:08 Labs: Laboratory Results - last 24 hr 09/20/24 21:09: POC Glucose 169 H 09/21/24 06:23: POC Glucose 98 09/21/24 08:08: WBC 5.6, RBC 2.58 L, Hgb 7.8 L, Hct 25.5 L, MCV 98.8, MCH 30.2, MCHC 30.6 L, RDW Std Deviation 60.7 H, RDW Coeff of Fior 16.9 H, Plt Count 395, MPV 9.3, Immature Gran % (Auto) 1.400 H, Neut % (Auto) 61.8, Lymph % (Auto) 18.0 L, [place] % (Auto) 12.9 H, Eos % (Auto) 5.0, Baso % (Auto) 0.9, Absolute Neuts (auto) 3.5, Absolute Lymphs (auto) 1.01, Nucleated RBC % 0, Sodium 132 L, Potassium 5.0, Chloride 100, Carbon Dioxide 28.0, Anion Gap 4 L, BUN 52 H, C reatinine 5.70 H, Estim Creat Clear Calc 11.05, Est GFR (MDRD) Af Amer 10 L, Est GFR (MDRD) Non-Af 8 L, BUN/Creatinine Ratio 9.1 L, Glucose 98, Calcium 9.2, P hosphorus 2.1 L 09/21/24 11:10: POC Glucose 90 09/21/24 16:45: POC Glucose 130 H Micro: Microbiology 09/19/24 14:17 Wound - Ankle Gram Stain - Final 09/19/24 14:17 Wound - Ankle Wound Culture - Preliminary Gram positive elinor 09/17/24 Unknown Wound - Right Foot Gram Stain - Final 09/17/24 Unknown Wound - Right Foot Wound Culture - Final No growth aerobically. 09/17/24 Unknown Wound - Right Foot Anaerobic Culture - Preliminary No growth in 48 hours. 09/13/24 16:05 Blood Culture (Wb) - Venous Blood Culture - Final No growth in 5 days. 09/13/24 15:55 Blood Culture (Wb) - Venous Blood Culture - Final No growth in 5 days. 09/13/24 16:58 Blood Culture (Wb)#3 - Anticubital Right Blood Culture - Final No growth in 5 days. 09/14/24 07:50 Wound - Right Foot Gram Stain - Final 09/14/24 07:50 Wound - Right Foot Wound Culture - Final Staphylococcus auricularis Enterococcus faecalis 09/13/24 16:18 Urine, Clean Catch Urine Culture - Final Culture exhibits no growth. Physical Exam Narrative Neurovascular status unchanged. Dressing intact to right lower extremity no signs DVT bilaterally. Const alert and oriented x3 Assessment & Plan Assessment/Plan (1) Non-pressure chronic ulcer of right ankle with necrosis of muscle: PLAN: Exam performed Patient discharging to SNF today Will continue nonweightbearing right lower extremity Follow-up in wound care center on Tuesday Dressing left intact due to graft Patient to take 600 mg twice daily linezolid per infectious disease for 2 weeks due to Enterococcus infection right lower extremity
== END 2024-09-21 20:30 | disposition skilled nursing facility (03) | DRG 981 ==
LOC: ED 20:22 → MS3 20:33
PROVIDERS: Hospitalist; Internal Medicine; Internal Medicine Nephrology; Podiatrist; Admitting Provider Internal Medicine; Emergency Provider Emergency Medicine; PCP Family Medicine
PROC: 0KBS0ZZ Excision of Right Lower Leg Muscle, Open Approach (ICD-10-PCS; principal; 2024-09-19 13:15)
DX: N30.00 Acute cystitis without hematuria (principal); N18.6 End stage renal disease; I12.0 Hypertensive chronic kidney disease with stage 5 chronic kidney disease or end stage renal disease; L97.313 Non-pressure chronic ulcer of right ankle with necrosis of muscle; N25.81 Secondary hyperparathyroidism of renal origin; L03.115 Cellulitis of right lower limb; Z16.22 Resistance to vancomycin related antibiotics; D63.8 Anemia in other chronic diseases classified elsewhere; B95.2 Enterococcus as the cause of diseases classified elsewhere; E11.22 Type 2 diabetes mellitus with diabetic chronic kidney disease; G40.909 Epilepsy, unspecified, not intractable, without status epilepticus; E03.9 Hypothyroidism, unspecified; F32.A Depression, unspecified; Z68.30 Body mass index [BMI] 30.0-30.9, adult; E11.42 Type 2 diabetes mellitus with diabetic polyneuropathy; K21.9 Gastro-esophageal reflux disease without esophagitis; Z99.2 Dependence on renal dialysis; E87.5 Hyperkalemia; E78.5 Hyperlipidemia, unspecified; I25.10 Atherosclerotic heart disease of native coronary artery without angina pectoris; F41.9 Anxiety disorder, unspecified; Z79.4 Long term (current) use of insulin; I25.5 Ischemic cardiomyopathy; E11.610 Type 2 diabetes mellitus with diabetic neuropathic arthropathy; E11.621 Type 2 diabetes mellitus with foot ulcer; I25.2 Old myocardial infarction; Z89.421 Acquired absence of other right toe(s); Z89.422 Acquired absence of other left toe(s); M54.9 Dorsalgia, unspecified; R10.84 Generalized abdominal pain; R62.7 Adult failure to thrive; E66.9 Obesity, unspecified; R53.81 Other malaise; G89.29 Other chronic pain; Z88.0 Allergy status to penicillin; Z79.82 Long term (current) use of aspirin; Z79.890 Hormone replacement therapy; Z79.891 Long term (current) use of opiate analgesic; Z87.39 Personal history of other diseases of the musculoskeletal system and connective tissue; Z95.5 Presence of coronary angioplasty implant and graft; B95.7 Other staphylococcus as the cause of diseases classified elsewhere
CPT/HCPCS: 36415; 71046; 73610; 74018; 80048; 80053; 81001; 82962; 83605; 83735; 84100; 84443; 85025; 85610; 85730; 87040; 87070; 87075; 87077; 87086; 87176; 87186; 87205; 87640; 90937; 93005; 94668; 97162; 97166; 97530; 97535; 97802; 97803; 99285; J0878; J7030; J7040; P9612; A4216; G0257; J2405; J3490

== ENCOUNTER 2024-09-25 08:38 | Outpatient (RCR) | payer MEDICARE, MEDICAID, SELFPAY ==
[2018-09-21 13:23] VITALS: BMI 29.3
[2024-07-10 00:30] VITALS: BP 152/75; PULSE 77; RESP 18; TEMP 36.6
--- NOTE | 2024-08-20 09:57 | WC ---
Tracy from [facility] called last week regarding Chandni not following up here because they have a wound nurse and she doing well with wound care. Also, they stated insurance won't cover both places for wound care. Spoke to Dr Julian regarding this and he stated he did surgery on the patient and the patient needs to follow up with him. It's more than wound care, he transferred tendons in her foot. She needs bracing which requires her to follow up. Spoke to Sofiya at [facility] and waiting for staff to get her scheduled.
--- NOTE | 2024-09-25 09:27 | PCM.WC.PN ---
History of Present Illness Date of Service: 09/25/24 Chief Complaint: right foot ulcer left foot ulcer History of Wound: Patient presents for follow-up on bilateral lateral ankle incisional dehiscence and plantar lateral foot wound. Patient has been followed by infectious disease and being treated with p.o. antibiotics specifically Bactrim double strength for 6 weeks per infectious disease. Patient had bilateral fifth metatarsal base resection due to infection and chronic plantar lateral wound formation. Patient additionally had peroneus brevis tendon transfer to limit or prevent equinovarus contracture. [facility] a [facility] facility and wounds are noted to be improving. Patient denies any constitutional symptoms today. Objective Data Objective Data Vital Signs: Vital Signs Temp Pulse Resp BP 97.9 F 77 18 152/75 H 07/10/24 00:30 07/10/24 00:30 07/10/24 00:30 07/10/24 00:30 Physical Exam Narrative Vascular: Dorsalis pedis posterior tibial pulses palpable 2 out of 4 to bilateral lower extremity compartments. Neurologic: Absent light touch protective sensation to bilateral lower extremity extending into proximal leg Dermatologic: Healed plantar right foot wound healed plantar left foot wound healed left lateral ankle wound. Residual wound to the lateral right ankle down to peroneal tendons. Fibrogranular base noted. Peroneal tendons along the inferior margin of the wound. Mild periwound erythema. Musculoskeletal: Cavovarus deformity right lower extremity. Debridement Note Debridement Note Post-Debridement Measurements and Additional Note: Post-Debridement Measurements/Treatment WC - Nurse 2 - General Ulcer CM Notes Start: 09/25/24 08:58 Freq: Status: Active Protocol: Activity Type Activity Date Activity User E-sign Co-sign Detail Recorded Client Recorded Date Recorded By Document 09/25/24 09:21 JF [id number] 09/25/24 09:27 JF 09/25/24 09:21 Wound Center Nurse 2 #25 Left Lateral ankle -Correct Patient No -Correct Side, Site, Position No -Correct Procedure No -Procedure Performed No -Post Debridement (cm) - Length 0 -Post Debridement (cm) - Width 0 -Post Debridement (cm) - Depth 0 -Total Square (Post) (cm) 0 -Area of Debridement (cm) - Length 0 -Area of Debridement (cm) - Width 0 -Total Square (Area) (cm) 0 -Wound/Ulcer Outcome Healed- Epithelialized #24 Left Plantar -Correct Patient No -Correct Side, Site, Position No -Correct Procedure No -Procedure Performed No -Post Debridement (cm) - Length 0 -Post Debridement (cm) - Width 0 -Post Debridement (cm) - Depth 0 -Total Square (Post) (cm) 0 -Area of Debridement (cm) - Length 0 -Area of Debridement (cm) - Width 0 -Total Square (Area) (cm) 0 -Wound/Ulcer Outcome Healed- Epithelialized 22-right plantar foot -Correct Patient No -Correct Side, Site, Position No -Correct Procedure No -Procedure Performed No -Post Debridement (cm) - Length 0 -Post Debridement (cm) - Width 0 -Post Debridement (cm) - Depth 0 -Total Square (Post) (cm) 0 -Area of Debridement (cm) - Length 0 -Area of Debridement (cm) - Width 0 -Total Square (Area) (cm) 0 -Wound/Ulcer Outcome Healed- Epithelialized #23 Right Lateral ankle -Time 09:23 -Correct Patient Yes -Correct Side, Site, Position Yes -Correct Procedure Yes -Procedure Performed Yes -Type of Procedure Debridement -Clinical Debridement Muscle / Fascia -Tissue Removed Muscle -Post Debridement (cm) - Length 6.5 -Post Debridement (cm) - Width 3.0 -Post Debridement (cm) - Depth 0.3 -Total Square (Post) (cm) 19.50 -Area of Debridement (cm) - Length 6.5 -Area of Debridement (cm) - Width 3.0 -Total Square (Area) (cm) 19.50 -Tunneling No -Undermining/Tunneling No -Circular Undermining No -Wound/Ulcer Outcome Not Healed -Ulcer Cleansing Rinsed/ Irrigated with Saline -Foul Odor after Cleansing No -Bioengineered Tissue No -Bleeding Controlled with Pressure -Treatment Response Procedure Tolerated Well -Offloading No -Debridement - Muscle / Fascia, 1st Yes 20sq cm Pain Scale: 0-10 Numeric Is Patient Pain Free? Yes Assessment/Plan Assessment/Plan (1) Non-pressure chronic ulcer of other part of right foot with necrosis of bone: CODE(S): L97.514 - Non-pressure chronic ulcer of other part of right foot with necrosis of bone PLAN: Exam performed. Patient missed multiple appointments due to [facility] facility transportation issues. This ultimately led to me not being able to see the patient for 2 months. Despite repeat scheduling of appointments facility failed to bring the patient in. This led to hospitalization with right lower extremity cellulitis patient's wound culture positive for Enterococcus faecalis. Patient is on 2 weeks of oral linezolid for treatment. Patient was debrided in the operating room at that time. She presents today for follow-up there is clear failure of the peroneus brevis tendon transfer to the right foot with intact peroneus brevis transfer to the left foot. This is led to instability for additional support patient will require ankle bracing to return to ambulation at this time she has an unstable wound to her lateral right ankle. The lateral right ankle wound was excisionally debrided down to including the level of tendon using a 7 mm dermal curette of all nonviable tissue. No anesthesia due to neuropathy. Hemostasis obtained with compression. Patient tolerated procedure well. Pre and postdebridement measurements documented nursing notes. Apply dressing with Dakin's daily and compression Continue nonweightbearing, patient on aspirin Follow-up weekly
[2024-09-25 09:54] VITALS: BP 115/72; PULSE 127; RESP 18; TEMP 36.1
--- NOTE | 2024-09-26 13:47 | WC ---
PHOTO 09/27/24 LEFT PLANTAR
--- NOTE | 2024-09-26 13:51 | WC ---
PHOTO 09/25/24 LEFT LATERAL ANKLE
--- NOTE | 2024-09-26 14:00 | WC ---
PHOTO 09/25/24 RIGHT LATERAL ANKLE
== END 2024-10-09 23:59 | disposition home or self-care (01) ==
LOC: WC 08:38
PROVIDERS: PCP Family Medicine; Referring Provider Podiatrist; Visit Provider Podiatrist
DX: L97.514 Non-pressure chronic ulcer of other part of right foot with necrosis of bone (principal); Z79.4 Long term (current) use of insulin; Z79.82 Long term (current) use of aspirin; Z79.890 Hormone replacement therapy; Z79.899 Other long term (current) drug therapy
CPT/HCPCS: 11043; 99214; G0463

== ENCOUNTER 2024-11-06 09:30 | Outpatient (RCR) | payer MEDICARE, MEDICAID, SELFPAY ==
[2018-09-21 13:23] VITALS: BMI 29.3
[2024-10-10 00:06] VITALS: BP 152/75; PULSE 77; RESP 18; TEMP 36.6
[2024-10-16 09:44] VITALS: BP 130/60; PULSE 75; RESP 18; TEMP 36.3
--- NOTE | 2024-10-16 11:53 | PN.PCM_ITS ---
History of Present Illness Date of Service: 10/16/24 Chief Complaint: right foot ulcer left foot ulcer History of Wound: Patient presents for follow-up on bilateral lateral ankle incisional dehiscence and plantar lateral foot wound. Patient has been followed by infectious disease and being treated with p.o. antibiotics specifically Bactrim double strength for 6 weeks per infectious disease. Patient had bilateral fifth metatarsal base resection due to infection and chronic plantar lateral wound formation. Patient additionally had peroneus brevis tendon transfer to limit or prevent equinovarus contracture. Patient has been nonweightbearing in a senior care facility and wounds are noted to be improving. Patient denies any constitutional symptoms today. Objective Data Objective Data Vital Signs: Vital Signs Temp Pulse Resp BP 97.3 F L 75 18 130/60 H 10/16/24 09:44 10/16/24 09:44 10/16/24 09:44 10/16/24 09:44 Physical Exam Narrative Vascular: Dorsalis pedis posterior tibial pulses palpable 2 out of 4 to bilateral lower extremity compartments. Neurologic: Absent light touch protective sensation to bilateral lower extremity extending into proximal leg Dermatologic: Healed plantar right foot wound healed plantar left foot wound healed left lateral ankle wound. Residual wound to the lateral right ankle down to peroneal tendons. Fibrogranular base noted. Peroneal tendons along the inferior margin of the wound. Mild periwound erythema. Musculoskeletal: Cavovarus deformity right lower extremity. Debridement Note Debridement Note Post-Debridement Measurements and Additional Note: Post-Debridement Measurements/Treatment - Nurse 1 - General Ulcer Assessment Start: 10/16/24 09:44 Freq: Status: Active Protocol: TENNILLE.HARMONY Activity Type Activity Date Activity User E-sign Co-sign Detail Recorded Client Recorded Date Recorded By Document 10/16/24 09:44 RB [id number] 10/16/24 09:47 RB 10/16/24 09:44 - Today's Visit Information Type of service Follow-up Visit (Physician/FINISH CARPENTER ) Arrival Mode Wheelchair Transfer Assistance None Patient Identification Verified (Name & Yes ) Patient Requires Transmission-Based No Precautions Vital Signs Temperature (97.8 F-99.1 F) 97.3 F L Temperature Source Temporal Pulse Rate (60-100) 75 Pulse Location Monitor Respiratory Rate (12-18) 18 Respiratory rate source Observation Blood Pressure (90/60-120/80) 130/60 H Blood Pressure Mean (mm Hg) 83 Source Monitor Position Semi-Fowlers Blood Pressure Location Left Arm History Since Last Visit- (Skip if this is Patient's initial visit) Have you changed medications since your No last visit? Any new allergies or adverse reactions No Had a fall/change in ADL's that may No increase risk of falls Signs or symptoms of abuse and/or No neglect since last visit Have you been in the hospital since your No last visit? Has dressing in place as prescribed Yes Has compression in place as prescribed No Has offloadiing in place as prescribed No Experienced any changes in pain level or No management Left Footwear Regular Shoe Right Footwear Other Footwear (Comment) Pain Scale: 0-10 Numeric Is Patient Pain Free? No rle -Description Aching -Intensity 10 -Duration (hours) Acute -Pain Behavior Withdrawal from Touch -Pain Aggravating Factors Exercise/ Activity -Alleviating Factors/Interventions Medication -Effectiveness of Alleviating Factor/ Moderately Intervention effective WC - Nurse 1 - General Ulcer Measurement Start: 10/16/24 09:44 Freq: Status: Active Protocol: Activity Type Activity Date Activity User E-sign Co-sign Detail Recorded Client Recorded Date Recorded By Document 10/16/24 09:44 RB [id number] 10/16/24 09:47 RB 10/16/24 09:44 Wound Center Nurse 1 #23 Right Lateral ankle -Combined with other wound No -Current Size (cm) - Length 5 -Current Size (cm) - Width 3.8 -Current Size (cm) - Depth 0.3 -Total Square Cm 19.0 -Photo Taken Yes -Tunneling No -Undermining/Tunneling No -Circular Undermining No -Exudate Amt Medium -Exudate Type Serosanguineous -Wound Margin Thickened & Rolled Under -Granulation Amt Medium (34-66%) -Granulation Quality [place] -Slough/Fibrin Yes -Necrosis Amt Medium (34-66%) -Necrotic Tissue Type Adherent Slough -Structure Exposed N/A -Texture (Natacha-wound Skin Appearance) Assessed, Scarring -Moisture (Natacha-wound Skin Appearance) Assessed -Color (Natacha-wound Skin Appearance) Assessed -Temperature (Natacha-wound Skin No Abnormality Appearance) (Pt Warm) -Tenderness on Palpation (Natacha-wound No Skin Appearance) -Ulcer Cleansing Wound Cleanser -Foul Odor after Cleansing No -Anesthetic Used 5% Lidocaine Gel TENNILLE - Nurse 2 - General Ulcer CM Notes Start: 10/16/24 09:44 Freq: Status: Active Protocol: Activity Type Activity Date Activity User E-sign Co-sign Detail Recorded Client Recorded Date Recorded By Document 10/16/24 09:53 JF [id number] 10/16/24 09:56 JF 10/16/24 09:53 Wound Center Nurse 2 -Time 09:53 -Correct Patient Yes -Correct Side, Site, Position Yes -Correct Procedure Yes -Procedure Performed Yes -Type of Procedure Debridement -Clinical Debridement Muscle / Fascia -Tissue Removed Muscle -Tunneling No -Undermining/Tunneling No -Circular Undermining No -Wound/Ulcer Outcome Not Healed -Ulcer Cleansing Rinsed/ Irrigated with Saline -Foul Odor after Cleansing No -Bioengineered Tissue No -Bleeding Controlled with Pressure -Treatment Response Procedure Tolerated Well -Offloading No -Debridement - Muscle / Fascia, 1st Yes 20sq cm #11 RIGHT LATERAL ANKLE -Correct Patient Yes -Correct Side, Site, Position Yes -Correct Procedure Yes -Procedure Performed Yes -Type of Procedure Debridement -Clinical Debridement Muscle / Fascia -Tissue Removed Muscle -Post Debridement (cm) - Length 6 -Post Debridement (cm) - Width 4 -Post Debridement (cm) - Depth 0.5 -Total Square (Post) (cm) 24 -Area of Debridement (cm) - Length 6 -Area of Debridement (cm) - Width 4 -Total Square (Area) (cm) 24 -Tunneling No -Undermining/Tunneling No -Circular Undermining No -Wound/Ulcer Outcome Not Healed -Ulcer Cleansing Rinsed/ Irrigated with Saline -Foul Odor after Cleansing No -Bioengineered Tissue No -Bleeding Controlled with Pressure -Treatment Response Procedure Tolerated Well -Offloading No -Debridement - Muscle / Fascia, 1st Yes 20sq cm -Debridement, Muscle/Fascia, ea addt'l 1 20sq cm or part thereof Pain Scale: 0-10 Numeric Is Patient Pain Free? Yes TENNILLE - Nurse 3 - General Ulcer D/C NN Start: 10/16/24 09:44 Freq: Status: Active Protocol: Activity Type Activity Date Activity User E-sign Co-sign Detail Recorded Client Recorded Date Recorded By Document 10/16/24 10:13 RB [id number] 10/16/24 10:14 RB 01/07/25 10:13 Wound Care Center Nurse 3 #23 Right Lateral ankle -Ulcer Cleansing Rinsed/ Irrigated with Saline -Other Dressing DAKINS MOISTENED GAUZE -Primary Dressing Covered/Secured with Dry Gauze & Roll Gauze, Secured with Tape -Other Covering ABD Right -Other MYLA Treatment Response Procedure Tolerated Well Pain Scale: 0-10 Numeric Is Patient Pain Free? Yes WC - Visit Discharge Discharge Condition Stable Ambulatory Status Wheelchair Transportation Private Auto Medication Reconcilliation completed & No provided to patient/care provider Clinical Summary of Care Provided Yes Assessment/Plan Assessment/Plan (1) Non-pressure chronic ulcer of other part of right foot with necrosis of bone: CODE(S): L97.514 - Non-pressure chronic ulcer of other part of right foot with necrosis of bone PLAN: Exam performed. Patient presents today for follow-up on right lateral ankle ulceration, is improved today. No acute infection noted. She presents today for follow-up there is clear failure of the peroneus brevis tendon transfer to the right foot with intact peroneus brevis transfer to the left foot. This is led to instability for additional support patient will require ankle bracing to return to ambulation at this time she has an unstable wound to her lateral right ankle. Left ankle wound healed and left ankle peroneus brevis tendon transfer site healed with foot and ankle held in rectus position The lateral right ankle wound was excisionally debrided down to including the level of tendon using a 7 mm dermal curette of all nonviable tissue. No anesthesia due to neuropathy. Hemostasis obtained with compression. Patient tolerated procedure well. Pre and postdebridement measurements documented nursing notes. Apply dressing with Dakin's daily and compression Continue nonweightbearing on right, patient on aspirin Plan for EpiFix grafting Follow-up weekly
--- NOTE | 2024-10-18 12:03 | WC ---
PHOTO 10/16/24 RIGHT LATERAL ANKLE
[2024-10-23 09:59] VITALS: BP 147/58; PULSE 66; RESP 18; TEMP 36.2
--- NOTE | 2024-10-23 10:11 | PCM.WC.PN ---
History of Present Illness Date of Service: 10/23/24 Chief Complaint: right foot ulcer left foot ulcer History of Wound: Patient presents for follow-up on bilateral lateral ankle incisional dehiscence and plantar lateral foot wound. Patient has been followed by infectious disease and being treated with p.o. antibiotics specifically Bactrim double strength for 6 weeks per infectious disease. Patient had bilateral fifth metatarsal base resection due to infection and chronic plantar lateral wound formation. Patient additionally had peroneus brevis tendon transfer to limit or prevent equinovarus contracture. Patient has been nonweightbearing in a senior living facility and wounds are noted to be improving. Patient denies any constitutional symptoms today. Objective Data Objective Data Vital Signs: Vital Signs Temp Pulse Resp BP 97.1 F L 66 18 147/58 H 10/23/24 09:59 10/23/24 09:59 10/23/24 09:59 10/23/24 09:59 Physical Exam Narrative Vascular: Dorsalis pedis posterior tibial pulses palpable 2 out of 4 to bilateral lower extremity compartments. Neurologic: Absent light touch protective sensation to bilateral lower extremity extending into proximal leg Dermatologic: Healed plantar right foot wound healed plantar left foot wound healed left lateral ankle wound. Residual wound to the lateral right ankle down to peroneal tendons. Fibrogranular base noted. Peroneal tendons along the inferior margin of the wound. Mild periwound erythema. Musculoskeletal: Cavovarus deformity right lower extremity. Debridement Note Debridement Note Post-Debridement Measurements and Additional Note: Post-Debridement Measurements/Treatment - Nurse 1 - General Ulcer Assessment Start: 10/16/24 09:44 Freq: Status: Active Protocol: TENNILLE.LOWEXT Activity Type Activity Date Activity User E-sign Co-sign Detail Recorded Client Recorded Date Recorded By Document 10/16/24 09:44 RB [id number] 10/16/24 09:47 RB Document 10/23/24 09:59 RB [id number] 10/23/24 10:01 RB 10/16/24 10/23/24 09:44 09:59 - Today's Visit Information Type of service Follow-up Visit Follow-up Visit (Physician/STAFF DEVELOPMENT NURSE (Physician/STAFF DEVELOPMENT NURSE ) ) Arrival Mode Wheelchair Wheelchair Transfer Assistance None Manual Patient Identification Verified (Name & Yes Yes ) Patient Requires Transmission-Based No No Precautions Finger Stick Blood Sugar(mg/dl) (if 96 indicated): Blood Sugar Stated by Patient Vital Signs Temperature (97.8 F-99.1 F) 97.3 F L 97.1 F L Temperature Source Temporal Temporal Pulse Rate (60-100) 75 66 Pulse Location Monitor Monitor Respiratory Rate (12-18) 18 18 Respiratory rate source Observation Observation Blood Pressure (90/60-120/80) 130/60 H 147/58 H Blood Pressure Mean (mm Hg) 83 87 Source Monitor Monitor Position Semi-Fowlers Sitting Blood Pressure Location Left Arm Left Arm History Since Last Visit- (Skip if this is Patient's initial visit) Have you changed medications since your No No last visit? Any new allergies or adverse reactions No No Had a fall/change in ADL's that may No No increase risk of falls Signs or symptoms of abuse and/or No No neglect since last visit Have you been in the hospital since your No No last visit? Has dressing in place as prescribed Yes Yes Has compression in place as prescribed No Yes Has offloadiing in place as prescribed No No Experienced any changes in pain level or No No management Left Footwear Regular Shoe No Footwear Right Footwear Other Footwear No Footwear (Comment) Pain Scale: 0-10 Numeric Is Patient Pain Free? No No rle -Description Aching Aching -Intensity 10 2 -Duration (hours) Acute Acute -Pain Behavior Withdrawal from Restlessness Touch -Pain Aggravating Factors Exercise/ Exercise/ Activity Activity -Alleviating Factors/Interventions Medication Medication -Effectiveness of Alleviating Factor/ Moderately Moderately Intervention effective effective WC - Nurse 1 - General Ulcer Measurement Start: 10/16/24 09:44 Freq: Status: Active Protocol: Activity Type Activity Date Activity User E-sign Co-sign Detail Recorded Client Recorded Date Recorded By Document 10/16/24 09:44 RB [id number] 10/16/24 09:47 RB Document 10/23/24 09:59 RB [id number] 10/23/24 10:01 RB 10/16/24 10/23/24 09:44 09:59 Wound Center Nurse 1 #23 Right Lateral ankle -Combined with other wound No No -Current Size (cm) - Length 5 5.5 -Current Size (cm) - Width 3.8 3.5 -Current Size (cm) - Depth 0.3 0.4 -Total Square Cm 19.0 19.25 -Photo Taken Yes Yes -Tunneling No No -Undermining/Tunneling No No -Circular Undermining No No -Exudate Amt Medium Medium -Exudate Type Serosanguineous Serosanguineous -Wound Margin Thickened & Distinct, Rolled Under Outline Attached -Granulation Amt Medium (34-66%) Medium (34-66%) -Granulation Quality [place] -Slough/Fibrin Yes Yes -Necrosis Amt Medium (34-66%) Medium (34-66%) -Necrotic Tissue Type Adherent Slough Adherent Slough -Structure Exposed N/A N/A -Texture (Natacha-wound Skin Appearance) Assessed, Assessed, Scarring Scarring -Moisture (Natacha-wound Skin Appearance) Assessed Assessed -Color (Natacha-wound Skin Appearance) Assessed Assessed -Temperature (Natacha-wound Skin No Abnormality No Abnormality Appearance) (Pt Warm) (Pt Warm) -Tenderness on Palpation (Natacha-wound No No Skin Appearance) -Ulcer Cleansing Wound Cleanser Wound Cleanser -Foul Odor after Cleansing No No -Anesthetic Used 5% Lidocaine 5% Lidocaine Gel Gel WC - Nurse 2 - General Ulcer CM Notes Start: 10/16/24 09:44 Freq: Status: Active Protocol: Activity Type Activity Date Activity User E-sign Co-sign Detail Recorded Client Recorded Date Recorded By Document 10/16/24 09:53 [id number] 10/16/24 09:56 10/16/24 09:53 Wound Center Nurse 2 #11 RIGHT LATERAL ANKLE -Correct Patient Yes -Correct Side, Site, Position Yes -Correct Procedure Yes -Procedure Performed Yes -Type of Procedure Debridement -Clinical Debridement Muscle / Fascia -Tissue Removed Muscle -Post Debridement (cm) - Length 6 -Post Debridement (cm) - Width 4 -Post Debridement (cm) - Depth 0.5 -Total Square (Post) (cm) 24 -Area of Debridement (cm) - Length 6 -Area of Debridement (cm) - Width 4 -Total Square (Area) (cm) 24 -Tunneling No -Undermining/Tunneling No -Circular Undermining No -Wound/Ulcer Outcome Not Healed -Ulcer Cleansing Rinsed/ Irrigated with Saline -Foul Odor after Cleansing No -Bioengineered Tissue No -Bleeding Controlled with Pressure -Treatment Response Procedure Tolerated Well -Offloading No -Debridement - Muscle / Fascia, 1st Yes 20sq cm -Debridement, Muscle/Fascia, ea addt'l 1 20sq cm or part thereof #23 Right Lateral ankle -Time 09:53 -Correct Patient Yes -Correct Side, Site, Position Yes -Correct Procedure Yes -Procedure Performed Yes -Type of Procedure Debridement -Clinical Debridement Muscle / Fascia -Tissue Removed Muscle -Tunneling No -Undermining/Tunneling No -Circular Undermining No -Wound/Ulcer Outcome Not Healed -Ulcer Cleansing Rinsed/ Irrigated with Saline -Foul Odor after Cleansing No -Bioengineered Tissue No -Bleeding Controlled with Pressure -Treatment Response Procedure Tolerated Well -Offloading No -Debridement - Muscle / Fascia, 1st Yes 20sq cm Pain Scale: 0-10 Numeric Is Patient Pain Free? Yes - Nurse 3 - General Ulcer D/C NN Start: 10/16/24 09:44 Freq: Status: Active Protocol: Activity Type Activity Date Activity User E-sign Co-sign Detail Recorded Client Recorded Date Recorded By Document 10/16/24 10:13 [id number] 10/16/24 10:14 ZIGGY 10/16/24 10:13 Wound Care Center Nurse 3 #23 Right Lateral ankle -Ulcer Cleansing Rinsed/ Irrigated with Saline -Other Dressing DAKINS MOISTENED GAUZE -Primary Dressing Covered/Secured with Dry Gauze & Roll Gauze, Secured with Tape -Other Covering ABD Right -Other MYLA Treatment Response Procedure Tolerated Well Pain Scale: 0-10 Numeric Is Patient Pain Free? Yes WC - Visit Discharge Discharge Condition Stable Ambulatory Status Wheelchair Transportation Private Auto Medication Reconcilliation completed & No provided to patient/care provider Clinical Summary of Care Provided Yes Assessment/Plan Assessment/Plan (1) Non-pressure chronic ulcer of other part of right foot with necrosis of bone: CODE(S): L97.514 - Non-pressure chronic ulcer of other part of right foot with necrosis of bone PLAN: Exam performed. Patient presents today for follow-up on right lateral ankle ulceration, is improved today. No acute infection noted. She presents today for follow-up there is clear failure of the peroneus brevis tendon transfer to the right foot with intact peroneus brevis transfer to the left foot. This is led to instability for additional support patient will require ankle bracing to return to ambulation at this time she has an unstable wound to her lateral right ankle. Left ankle wound healed and left ankle peroneus brevis tendon transfer site healed with foot and ankle held in rectus position The lateral right ankle wound was excisionally debrided down to including the level of tendon using a 7 mm dermal curette of all nonviable tissue. No anesthesia due to neuropathy. Hemostasis obtained with compression. Patient tolerated procedure well. Pre and postdebridement measurements documented nursing notes. Apply dressing with Dakin's daily and compression Continue nonweightbearing on right, patient on aspirin Plan for EpiFix grafting Follow-up weekly
--- NOTE | 2024-10-26 09:05 | WC ---
PHOTO 10/23/24 RIGHT LAT ANKLE
[2024-11-06 09:45] VITALS: BP 133/59; PULSE 64; RESP 18; TEMP 36.8
--- NOTE | 2024-11-06 10:18 | PCM.WC.PN ---
History of Present Illness Date of Service: 11/06/24 Chief Complaint: right foot ulcer left foot ulcer History of Wound: Patient presents for follow-up on bilateral lateral ankle incisional dehiscence and plantar lateral foot wound. Patient has been followed by infectious disease and being treated with p.o. antibiotics specifically Bactrim double strength for 6 weeks per infectious disease. Patient had bilateral fifth metatarsal base resection due to infection and chronic plantar lateral wound formation. Patient additionally had peroneus brevis tendon transfer to limit or prevent equinovarus contracture. Patient has been nonweightbearing in a shelter facility and wounds are noted to be improving. Patient denies any constitutional symptoms today. Objective Data Objective Data Vital Signs: Vital Signs Temp Pulse Resp BP O2 Del Method 98.3 F 64 18 133/59 H Room Air 11/06/24 09:45 11/06/24 09:45 11/06/24 09:45 11/06/24 09:45 11/06/24 09:45 Oxygen Delivery Method Room Air Physical Exam Narrative Vascular: Dorsalis pedis posterior tibial pulses palpable 2 out of 4 to bilateral lower extremity compartments. Neurologic: Absent light touch protective sensation to bilateral lower extremity extending into proximal leg Dermatologic: Healed plantar right foot wound healed plantar left foot wound healed left lateral ankle wound. Residual wound to the lateral right ankle down to peroneal tendons. Fibrogranular base noted. Peroneal tendons along the inferior margin of the wound. Mild periwound erythema. Musculoskeletal: Cavovarus deformity right lower extremity. Debridement Note Debridement Note Post-Debridement Measurements and Additional Note: Post-Debridement Measurements/Treatment - Nurse 1 - General Ulcer Assessment Start: 10/16/24 09:44 Freq: Status: Active Protocol: TENNILLE.BRODIEEXNory Activity Type Activity Date Activity User E-sign Co-sign Detail Recorded Client Recorded Date Recorded By Document 10/16/24 09:44 RB [id number] 10/16/24 09:47 RB Document 10/23/24 09:59 RB [id number] 10/23/24 10:01 RB Document 11/06/24 09:45 KW [id number] 11/06/24 09:46 KW 10/16/24 10/23/24 11/06/24 09:44 09:59 09:45 - Today's Visit Information Type of service Follow-up Visit Follow-up Visit Follow-up Visit (Physician/UNEMPLOYMENT CLAIMS ADJUDICATOR (Physician/UNEMPLOYMENT CLAIMS ADJUDICATOR (Physician/UNEMPLOYMENT CLAIMS ADJUDICATOR ) ) ) Arrival Mode Wheelchair Wheelchair Wheelchair Transfer Assistance None Manual Patient Identification Verified (Name & Yes Yes Yes ) Patient Requires Transmission-Based No No Precautions Finger Stick Blood Sugar(mg/dl) (if 96 indicated): Blood Sugar Stated by Patient Vital Signs Temperature (97.8 F-99.1 F) 97.3 F L 97.1 F L 98.3 F Temperature Source Temporal Temporal Temporal Pulse Rate (60-100) 75 66 64 Pulse Location Monitor Monitor Monitor Respiratory Rate (12-18) 18 18 18 Respiratory rate source Observation Observation Observation Oxygen Delivery Method Room Air Blood Pressure (90/60-120/80) 130/60 H 147/58 H 133/59 H Blood Pressure Mean (mm Hg) 83 87 83 Source Monitor Monitor Monitor Position Semi-Fowlers Sitting Sitting Blood Pressure Location Left Arm Left Arm Left Arm History Since Last Visit- (Skip if this is Patient's initial visit) Have you changed medications since your No No No last visit? Any new allergies or adverse reactions No No No Had a fall/change in ADL's that may No No No increase risk of falls Signs or symptoms of abuse and/or No No No neglect since last visit Have you been in the hospital since your No No No last visit? Has dressing in place as prescribed Yes Yes Yes Has compression in place as prescribed No Yes Yes Has offloadiing in place as prescribed No No N/A Experienced any changes in pain level or No No No management Left Footwear Regular Shoe No Footwear Slipper Right Footwear Other Footwear No Footwear Slipper (Comment) Pain Scale: 0-10 Numeric Is Patient Pain Free? No No Yes rle -Description Aching Aching -Intensity 10 2 -Duration (hours) Acute Acute -Pain Behavior Withdrawal from Restlessness Touch -Pain Aggravating Factors Exercise/ Exercise/ Activity Activity -Alleviating Factors/Interventions Medication Medication -Effectiveness of Alleviating Factor/ Moderately Moderately Intervention effective effective WC - Nurse 1 - General Ulcer Measurement Start: 10/16/24 09:44 Freq: Status: Active Protocol: Activity Type Activity Date Activity User E-sign Co-sign Detail Recorded Client Recorded Date Recorded By Document 10/16/24 09:44 RB [id number] 10/16/24 09:47 RB Document 10/23/24 09:59 RB [id number] 10/23/24 10:01 RB Document 11/06/24 09:45 KW [id number] 11/06/24 09:46 KW 10/16/24 10/23/24 11/06/24 09:44 09:59 09:45 Wound Center Nurse 1 #23 Right Lateral ankle -Combined with other wound No No -Current Size (cm) - Length 5 5.5 5 -Current Size (cm) - Width 3.8 3.5 3.6 -Current Size (cm) - Depth 0.3 0.4 0.2 -Total Square Cm 19.0 19.25 18.0 -Date of Last Picture (Recall this 11/06/24 field) -Photo Taken Yes Yes -Tunneling No No -Undermining/Tunneling No No -Circular Undermining No No -Exudate Amt Medium Medium Medium -Exudate Type Serosanguineous Serosanguineous Serosanguineous -Wound Margin Thickened & Distinct, Distinct, Rolled Under Outline Outline Attached Attached -Granulation Amt Medium (34-66%) Medium (34-66%) Medium (34-66%) -Granulation Quality [place] -Slough/Fibrin Yes Yes -Necrosis Amt Medium (34-66%) Medium (34-66%) Small (1-33%) -Necrotic Tissue Type Adherent Slough Adherent Slough Adherent Slough -Structure Exposed N/A N/A -Texture (Natacha-wound Skin Appearance) Assessed, Assessed, Assessed Scarring Scarring -Moisture (Natacha-wound Skin Appearance) Assessed Assessed Assessed -Color (Natacha-wound Skin Appearance) Assessed Assessed Assessed -Temperature (Natacha-wound Skin No Abnormality No Abnormality No Abnormality Appearance) (Pt Warm) (Pt Warm) (Pt Warm) -Tenderness on Palpation (Natacha-wound No No No Skin Appearance) -Ulcer Cleansing Wound Cleanser Wound Cleanser Soap and Water -Foul Odor after Cleansing No No No -Anesthetic Used 5% Lidocaine 5% Lidocaine 4% Lidocaine Gel Gel Solution WC - Nurse 2 - General Ulcer CM Notes Start: 10/16/24 09:44 Freq: Status: Active Protocol: Activity Type Activity Date Activity User E-sign Co-sign Detail Recorded Client Recorded Date Recorded By Document 10/16/24 09:53 JF [id number] 10/16/24 09:56 JF Edit Result 10/16/24 09:53 JF (1) [id number] 10/23/24 14:14 JF Document 10/23/24 10:09 KW [id number] 10/23/24 10:27 KW Edit Result 10/23/24 10:09 KW (2) [id number] 10/23/24 14:05 JF Document 11/06/24 10:01 JF [id number] 11/06/24 10:04 JF (1) #23 Right Lateral ankle - Post Debridement (cm) - Length => 6 - Post Debridement (cm) - Width => 4 - Post Debridement (cm) - Depth => 0.5 - Total Square (Post) (cm) => 24 - Area of Debridement (cm) - Length => 6 - Area of Debridement (cm) - Width => 4 - Total Square (Area) (cm) => 24 - Debridement, Muscle/Fascia, ea addt'l => 1 20sq cm or part thereof (2) #23 Right Lateral ankle - Debridement, Muscle/Fascia, ea addt'l => 1 20sq cm or part thereof 10/16/24 10/23/24 11/06/24 09:53 10:09 10:01 Wound Center Nurse 2 #11 RIGHT LATERAL ANKLE -Correct Patient Yes -Correct Side, Site, Position Yes -Correct Procedure Yes -Procedure Performed Yes -Type of Procedure Debridement -Clinical Debridement Muscle / Fascia -Tissue Removed Muscle -Post Debridement (cm) - Length 6 -Post Debridement (cm) - Width 4 -Post Debridement (cm) - Depth 0.5 -Total Square (Post) (cm) 24 -Area of Debridement (cm) - Length 6 -Area of Debridement (cm) - Width 4 -Total Square (Area) (cm) 24 -Tunneling No -Undermining/Tunneling No -Circular Undermining No -Wound/Ulcer Outcome Not Healed -Ulcer Cleansing Rinsed/ Irrigated with Saline -Foul Odor after Cleansing No -Bioengineered Tissue No -Bleeding Controlled with Pressure -Treatment Response Procedure Tolerated Well -Offloading No -Debridement - Muscle / Fascia, 1st Yes 20sq cm -Debridement, Muscle/Fascia, ea addt'l 1 20sq cm or part thereof #23 Right Lateral ankle -Time 09:53 10:10 10:01 -Correct Patient Yes Yes Yes -Correct Side, Site, Position Yes Yes Yes -Correct Procedure Yes Yes Yes -Procedure Performed Yes Yes Yes -Type of Procedure Debridement Debridement Debridement -Clinical Debridement Muscle / Fascia Muscle / Fascia Subcutaneous -Tissue Removed Muscle Muscle Subcutaneous -Post Debridement (cm) - Length 6 6.2 5.5 -Post Debridement (cm) - Width 4 3.5 3.5 -Post Debridement (cm) - Depth 0.5 0.5 0.2 -Total Square (Post) (cm) 24 21.70 19.25 -Area of Debridement (cm) - Length 6 5.5 -Area of Debridement (cm) - Width 4 3.5 -Total Square (Area) (cm) 24 19.25 -Tunneling No No -Undermining/Tunneling No No -Circular Undermining No No -Wound/Ulcer Outcome Not Healed Not Healed Not Healed -Ulcer Cleansing Rinsed/ Rinsed/ Rinsed/ Irrigated with Irrigated with Irrigated with Saline Saline Saline -Foul Odor after Cleansing No No No -Bioengineered Tissue No Yes -Type of Bioengineered Tissue Epifix Mesh -Expiration Date 04/09/29 -Product Lot Number [id number] -Percent Used 100 -Lot number of Saline Used [id number] -Bleeding Controlled with Pressure Pressure -Treatment Response Procedure Procedure Tolerated Well Tolerated Well -Offloading No No -Debridement - Subq, 1st 20sq cm No -Debridement - Muscle / Fascia, 1st Yes Yes 20sq cm -Debridement, Muscle/Fascia, ea addt'l 1 1 20sq cm or part thereof -Apply Skin Sub - 1st 25 sq cm - Legs 1 -Epifix Mesh (per sq cm) 11 Pain Scale: 0-10 Numeric Is Patient Pain Free? Yes Yes Yes WC - Nurse 3 - General Ulcer D/C NN Start: 10/16/24 09:44 Freq: Status: Active Protocol: Activity Type Activity Date Activity User E-sign Co-sign Detail Recorded Client Recorded Date Recorded By Document 10/16/24 10:13 RB [id number] 10/16/24 10:14 RB Document 10/23/24 10:09 KW [id number] 10/23/24 10:27 KW 10/16/24 10/23/24 10:13 10:09 Wound Care Center Nurse 3 #23 Right Lateral ankle -Ulcer Cleansing Rinsed/ Rinsed/ Irrigated with Irrigated with Saline Saline -Other Dressing DAKINS DAKINS SOAKED MOISTENED GAUZE GAUZE -Primary Dressing Covered/Secured with Dry Gauze & Dry Gauze & Roll Gauze, Roll Gauze, Secured with Secured with Tape Tape -Other Covering ABD Right -Compression Wrap [place] Wrap -Other [place] Treatment Response Procedure Tolerated Well Pain Scale: 0-10 Numeric Is Patient Pain Free? Yes Yes WC - Visit Discharge Discharge Condition Stable Stable Ambulatory Status Wheelchair Wheelchair Transportation Private Auto Medication Reconcilliation completed & No No provided to patient/care provider Clinical Summary of Care Provided Yes Yes Assessment/Plan Assessment/Plan (1) Non-pressure chronic ulcer of other part of right foot with necrosis of bone: CODE(S): L97.514 - Non-pressure chronic ulcer of other part of right foot with necrosis of bone PLAN: Exam performed. Patient presents today for follow-up on right lateral ankle ulceration, is improved today. No acute infection noted. She presents today for follow-up there is clear failure of the peroneus brevis tendon transfer to the right foot with intact peroneus brevis transfer to the left foot. This is led to instability for additional support patient will require ankle bracing to return to ambulation at this time she has an unstable wound to her lateral right ankle. Left ankle wound healed and left ankle peroneus brevis tendon transfer site healed with foot and ankle held in rectus position The lateral right ankle wound was excisionally debrided down to including the level of tendon using a 7 mm dermal curette of all nonviable tissue. No anesthesia due to neuropathy. Hemostasis obtained with compression. Patient tolerated procedure well. Pre and postdebridement measurements documented nursing notes. Apply dressing with Dakin's daily and compression Continue nonweightbearing on right, patient on aspirin Plan for EpiFix grafting Patient will require long-term bracing to right lower extremity due to cavovarus deformity secondary to the loss of function of peroneus brevis tendon Follow-up weekly
--- NOTE | 2024-11-07 08:56 | WC ---
PHOTO 11/06/24 RIGHT LATERAL ANKLE
--- NOTE | 2024-11-23 12:59 | PCM.WC.HP ---
History of Present Illness Date of Service: 11/20/24 Chief Complaint: Right foot ulceration History of Wound: This is a 59-year-old diabetic female with multiple pre-existing medical problems. She is a patient of [facility], Dr. Gustavo Julian, for whom I am seeing the patient today. The patient's pre-existing medical problems are listed elsewhere. She is being treated for an ulceration on the right lateral ankle. An EpiFix allograft was applied to the site [address] Julian. It has remained intact until her current visit. The patient is also on oral antibiotics, both doxycycline and ciprofloxacin. The patient has a severe varus deformity and suffers from peripheral neuropathy. The patient is considered a poor surgical candidate, and has recently been treated with by total contact casting. A noninvasive lower extremity arterial study was performed in April 2024, which revealed no evidence of significant arterial occlusive disease. An x-ray of her right foot in September 2024 revealed no evidence of osteomyelitis. 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 Secondary hyperparathyroidism Hypertension ESRD (end stage renal disease) on dialysis Non-pressure chronic ulcer of right ankle with necrosis of muscle Non-pressure chronic 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 layer exposed Non-pressure chronic ulcer of other part of left foot with fat layer exposed Non-pressure chronic ulcer of left ankle with necrosis of muscle Adverse effect of synthetic cannabinoids, initial encounter [place] coma scale score 13-15, at arrival to emergency department Acute alteration in mental status Short Achilles tendon (acquired), left ankle Short Achilles tendon (acquired), right ankle Acquired cavovarus deformity of left foot Acquired cavovarus deformity of right foot Adult failure to thrive Debility Charcot's joint, right ankle and foot Charcot's joint, left ankle and foot Drowsiness Mental status, decreased Carotid artery stenosis MSSA bacteremia ESRD on hemodialysis Osteomyelitis Anemia in chronic illness Type 2 diabetes mellitus Foot osteomyelitis, left Chronic renal disease, stage 4, severely decreased glomerular filtration rate (GFR) between 15-29 mL/min/1.73 square meter Acute on chronic anemia Chronic ulcer of right foot with necrosis of bone Chronic kidney disease, stage 4 (severe) Diabetes mellitus with diabetic polyneuropathy Diabetic foot ulcers Chronic kidney disease, stage 3b Cellulitis Acute lumbar radiculopathy Essential hypertension Adult failure to thrive COVID-19 (08/28/21) Chronic ulcer of right leg with fat layer exposed Ulcer of left foot with fat layer exposed Chronic ulcer of right foot with fat layer exposed Hyperparathyroidism, secondary renal Iron deficiency anemia Bilateral edema of lower extremity Chronic foot pain Charcot's joint of right foot Diabetes Non-smoker Myocardial infarct TIA (transient ischemic attack) Amputation foot, bilat 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 Ulcer of left foot with necrosis of muscle Ulcer of left foot with muscle involvement without evidence of necrosis Anxiety and depression Diabetic infection of left foot Delayed wound healing Non-compliance Diabetic polyneuropathy Ischemic cardiomyopathy Obesity (BMI 30.0-34.9) Acquired varus deformity of left foot Acquired varus deformity of right foot Atherosclerosis of [place] coronary artery of [place] heart without angina pectoris Hemoglobin A1c greater than 9.0% NSTEMI (non-ST elevated myocardial infarction) (09/20/18) GERD (gastroesophageal reflux disease) HLD (hyperlipidemia) Back pain, chronic RLS (restless legs syndrome) Home Medications ?Medication ?Instructions ?Recorded ?Last Taken ?Type paroxetine HCl 20 mg tablet 20 mg PO DAILY DEPRESSION 07/07/21 04/07/22 History sennosides 8.6 mg-docusate sodium 2 tab PO BID PRN PRN Constipation 04/24/22 Unknown Rx 50 mg tablet (Stool #0 tabs Softener-Stimulant Laxative) ascorbic acid (vitamin C) 500 mg 500 mg PO BID supplement 05/05/22 Unknown History tablet (Vitamin C) pantoprazole 40 mg tablet,delayed 40 mg PO BIDCM GERD 07/19/22 Unknown History release gabapentin 100 mg capsule 100 mg PO .COMPLEX PRN pain 11/26/23 Unknown History amlodipine 5 mg tablet 5 mg PO DAILY bp 12/16/23 Unknown History calcitriol 0.5 mcg capsule 0.5 mcg PO .COMPLEX on dialysis 12/16/23 07/09/24 History calcium acetate(phosphat bind) 667 676 mg PO TID is on dialysis 12/16/23 Unknown History mg capsule folic acid 800 mcg tablet 0.8 mg PO DAILY supplement 12/16/23 Unknown History levothyroxine 25 mcg tablet 25 mcg PO DAILY thyroid 12/16/23 Unknown History aspirin 81 mg capsule 81 mg PO DAILY blood thinner #30 12/26/23 Unknown Rx caps atorvastatin 40 mg tablet 40 mg PO DAILY cholesterol 03/18/24 06/26/24 History carvedilol 25 mg tablet 25 mg PO BID blood pressure 03/18/24 Unknown History hydralazine 50 mg tablet 50 mg PO TID bp #0 tabs 05/21/24 Unknown Rx melatonin 3 mg tablet 3 mg PO QHS PRN PRN Insomnia #0 05/21/24 Unknown Rx tabs menthol 0.44 %-zinc oxide 20.6 % 1 applic topical BID skin care #0 05/21/24 Unknown Rx topical ointment (Calmoseptine) grams sucralfate 1 gram tablet 1 g PO TID@0700,1100,1600 05/21/24 Unknown Rx indigestion #0 tabs acetaminophen 325 mg tablet 650 mg PO Q6H PRN fever or pain 07/09/24 Unknown History diphenhydramine HCl 25 mg capsule 12.5 mg (1/2 x 25 mg) PO Q6H PRN 07/10/24 Unknown Rx (Banophen) PRN Itching #0 caps levetiracetam 500 mg tablet 500 mg PO BID 30 days #60 tabs 07/10/24 Unknown Rx insulin lispro 100 unit/mL 10 unit subcut TIDAC blood sugar 09/13/24 Unknown History subcutaneous pen (Humalog KwikPen (U-100) Insulin) ipratropium 0.5 mg-albuterol 3 mg 3 ml inhalation Q4H 09/13/24 Unknown History (2.5 mg base)/3 mL nebulization soln ondansetron HCl 4 mg tablet 4 mg PO Q4H PRN PRN nausea and 09/13/24 Unknown History vomiting sevelamer carbonate 800 mg tablet 1,600 mg PO TID 09/13/24 Unknown History L.acidophil,salivari-Bifido 1 cap PO 4X/DAY #0 caps 09/21/24 Unknown Rx bifidum-Strep thermoph 175 mg capsule arginine 7 gram-glutam 7 1 packet PO BIDCM #0 ea 09/21/24 Unknown Rx gram-CaHMB 1.5 dwso-olica-du-min oral pwd pkt (Ted (with collagen)) linezolid 600 mg tablet 600 mg PO Q12H 14 days #28 tabs 09/21/24 Unknown Rx lorazepam 0.5 mg tablet 0.5 mg PO Q12H PRN anxiety #6 tabs 09/21/24 Unknown Rx nutrition tx glu 120 ml PO TIDCM #0 mL 09/21/24 Unknown Rx intol,lac-free,soy-fiber 0.06 gram-1.2 kcal/mL liquid (Glucerna 1.2 Howie) oxycodone 5 mg tablet 2.5 mg (1/2 x 5 mg) PO Q8H PRN 09/21/24 Unknown Rx pain 3 days #10 tabs Allergy/AdvReac Type Severity Reaction Status Date / Time oxycodone (From OxyContin) Allergy sob Verified 09/13/24 15:36 Penicillins Allergy swelling Verified 09/13/24 15:36 in throat vancomycin Allergy Itching Verified 09/13/24 15:36 metronidazole AdvReac Nausea Verified 09/13/24 15:36 Family History Mother Diabetes CVA (cerebral vascular accident) Brother CAD (coronary artery disease) CABG X 3 Cancer testicular Diabetes Brother CAD (coronary artery disease) CABG X3 Diabetes Brother CAD (coronary artery disease) Stents Diabetes Sister CAD (coronary artery disease) CABG x 3 CVA (cerebral vascular accident) Diabetes Surgical History History of History of foot surgery History of bilateral carpal tunnel release History of rotator cuff surgery History of coronary artery stent placement (12/31/20) Social History household members: none number of children: 2 current occupational status: disabled Smoking Status: Never smoker alcohol intake: never substance use type: does not use caffeine: Yes Type: carbonated beverages Number of servings: 2 Physical Exam Const alert, oriented x3 and no apparent distress Constitutional Narrative: The patient appears frail. General Appearance: cooperative and comfortable Orientation / Consciousness: awake, oriented to person, oriented to place and oriented to time Exam Limitations: no limitations HEENT normocephalic and head/scalp atraumatic Head and Scalp: normal to inspection, normocephalic and atraumatic Face and Sinus: normal facial exam Nose: external nose normal External Ear: external ears normal Eyes EOMs intact bilaterally General Eye: normal appearance of both eyes Resp normal respiratory effort, normal air movement, no retractions and no use of accessory muscles Effort and Inspection: able to speak in complete sentences Extremity no calf tenderness General Extremity: Negative for clubbing or cyanosis Skin Wound Narrative: An ulceration is noted on the right lateral ankle. It is a full-thickness ulceration, extending through all layers of the dermis and into the subcutaneous tissues. Dimensions are documented elsewhere. There is no evidence of infection or cellulitis. Ulcer margins are well beveled. There is no sign of undermining or tunneling. There is a small amount of bioburden. The base of the ulceration is generally pink and healthy in appearance, with active granulation tissue. Neuro oriented x3, CN's II-XII intact bilaterally, moves all extremities, no focal motor deficits and no sensory deficits noted Sensorium / Orientation: awake, alert, oriented to person, oriented to place and oriented to time Speech: speech normal Psych Appearance: grossly normal and appropriate Attitude: calm Activity / Motor Behavior: appropriate eye contact Speech: normal speech Mood & Affect: euthymic mood Thought Process: normal thought process Thought Content: normal thought content Attention / Concentration: attention grossly intact Debridement Note Debridement Note Wound debrided: Right lateral ankle ulceration Laterality: Right Type of Debridement: Excisional debridement Anesthesia Used: 5% Lidocaine Gel Depth: Down to and including healthy tissue and in the subcutaneous layer Percentage of wound debrided: 100 Instrument Used: 5mm curette Tissue Removed: Bioburden Severity: Fat Layer Exposed Amount of bleeding with debridement: Mild Bleeding Controlled with: Compression and gauze Patient tolerated procedure: Patient tolerated procedure well Debridement Free Text: Following an excisional debridement, which was well-tolerated, an EpiFix allograft was applied. A 4 cm x 4.5 cm EpiFix meshed allograft was selected. It was removed from its sterile packaging, and fashioned to the appropriate dimensions. It was applied in the appropriate orientation. 100% of the allograft was utilized. Once applied, Adaptic Touch was placed, and was secured using Steri-Strips. A dry gauze dressing was applied, and a total contact cast (TCC) was placed. This was the third allograft application. 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: CODE(S): L97.302 - Non-pressure chronic ulcer of unspecified ankle with fat layer exposed QUALIFIERS: Laterality: right Qualified Code(s): L97.312 - Non-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 (2) Varus deformity, not elsewhere classified, right ankle: CODE(S): M21.171 - Varus deformity, not elsewhere classified, right ankle (3) Type 2 diabetes mellitus with diabetic polyneuropathy: CODE(S): E11.42 - Type 2 diabetes mellitus with diabetic polyneuropathy QUALIFIERS: Diabetes mellitus fdc insulin use: with intermodal customer service use Qualified Code(s): E11.42 - Type 2 diabetes mellitus with diabetic polyneuropathy; Z79.4 - long term acute care registered nurse (current) use of insulin (4) Diabetes mellitus type 2 with complications: CODE(S): E11.8 - Type 2 diabetes mellitus with unspecified complications (5) Debility: CODE(S): R53.81 - Other malaise (6) Anemia: CODE(S): D64.9 - Anemia, unspecified QUALIFIERS: Anemia type: due to chronic kidney disease (7) History of myocardial infarction: CODE(S): I25.2 - Old myocardial infarction (8) History of TIA (transient ischemic attack): CODE(S): Z86.73 - Personal history of transient ischemic attack (TIA), and cerebral infarction without residual deficits PLAN: Plan This is a 49-year-old diabetic female with an ulceration on the right lateral ankle. She has been under the care of Dr. Gustavo Julian, [facility]. She suffers from multiple pre-existing medical problems in addition to her diabetes mellitus, which include stage IV chronic kidney disease, hypertension, hyperlipidemia, anemia, etc. She is scheduled to undergo an arterio-venous hemodialysis fistula in the near future. Because of her multiple pre-existing medical conditions, the patient is considered a poor surgical candidate. Optimization of the patient's nutritional intake has been discussed. She has also been advised to optimize her glycemic control. A swab culture of the patient's ulceration was performed 1 week ago, and was positive for very rare Klebsiella pneumonia. At this juncture, it appears likely that this is not clinically significant, as there is no evidence of infection or cellulitis at this time. Nonetheless, the patient is to continue her current courses of doxycycline and Cipro to completion. We are to monitor the ulcerated site on a serial basis, but antibiotics are not felt warranted at this time. An EpiFix allograft has been placed today, which is the third such allograft application. A total contact cast was also applied. An x-ray was previously ordered, and the results are awaited from the patient's [facility]. The patient is to return in 1 week for reevaluation.
== END 2024-11-09 23:59 | disposition home or self-care (01) ==
LOC: WC 09:30
PROVIDERS: PCP Family Medicine; Referring Provider Podiatrist; Visit Provider Podiatrist
DX: T81.31XA Disruption of external operation (surgical) wound, not elsewhere classified, initial encounter (principal); L97.514 Non-pressure chronic ulcer of other part of right foot with necrosis of bone; Y83.9 Surgical procedure, unspecified as the cause of abnormal reaction of the patient, or of later complication, without mention of misadventure at the time of the procedure; Q66.11 Congenital talipes calcaneovarus, right foot
CPT/HCPCS: 11043; 11046; 15271; 99212; Q4186; G0463

== ENCOUNTER 2024-12-04 09:30 | Outpatient (RCR) | payer MEDICARE, MEDICAID, SELFPAY ==
[2018-09-21 13:23] VITALS: BMI 29.3
[2024-11-10 01:42] VITALS: BP 133/59; PULSE 64; RESP 18; TEMP 36.8
[2024-11-13 09:04] VITALS: BP 159/83; PULSE 71; RESP 18; TEMP 36.3
--- NOTE | 2024-11-13 10:04 | PN.PCM_ITS ---
History of Present Illness Date of Service: 11/13/24 Chief Complaint: right foot ulcer left foot ulcer History of Wound: 59-year-old female with end-stage renal disease, poorly controlled type 2 diabetes history of bilateral nonhealing ulcerations requiring amputation presents for chronic right foot ulceration in setting of varus deformity and peripheral neuropathy. Patient denies constitutional symptoms. Patient notes some increased swelling today due to dressing bunching up. Patient denies pain to wound site. Patient has no other complaints. Objective Data Objective Data Vital Signs: Vital Signs Temp Pulse Resp BP 97.3 F L 71 18 159/83 H 11/13/24 09:04 11/13/24 09:04 11/13/24 09:04 11/13/24 09:04 Physical Exam Narrative Vascular: Dorsalis pedis posterior tibial pulses palpable 2 out of 4 to bilateral lower extremity compartments. Neurologic: Absent light touch protective sensation to bilateral lower extremity extending into proximal leg Dermatologic: Residual lateral ankle ulceration noted to the right ankle. This wound is down to level of subcutaneous tissue there is no evidence of deep probing or undermining. There is some fibrous tissue noted predebridement, postdebridement the wound demonstrates clean granular base. There is mild periwound erythema edema noted today. Pre and postdebridement measurements documented nursing notes. Musculoskeletal: Cavovarus deformity right lower extremity. Rectus alignment of left ankle and foot. 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 ) Arrival Mode Wheelchair Transfer Assistance Manual Patient Identification Verified (Name & Yes ) Patient Requires Transmission-Based No Precautions Finger Stick Blood Sugar(mg/dl) (if 213 indicated): Blood Sugar Stated by Patient Vital Signs Temperature (97.8 F-99.1 F) 97.3 F L Temperature Source Temporal Pulse Rate (60-100) 71 Pulse Location Monitor Respiratory Rate (12-18) 18 Respiratory rate source Observation Blood Pressure (90/60-120/80) 159/83 H Blood Pressure Mean (mm Hg) 108 Source Monitor Position Sitting Blood Pressure Location Left Arm History Since Last Visit- (Skip if this is Patient's initial visit) Have you changed medications since your No last visit? Any new allergies or adverse reactions No Had a fall/change in ADL's that may No increase risk of falls Signs or symptoms of abuse and/or No neglect since last visit Have you been in the hospital since your No last visit? Has dressing in place as prescribed Yes Has compression in place as prescribed Yes Has offloadiing in place as prescribed N/A Experienced any changes in pain level or No management Left Footwear Regular Shoe Right Footwear No Footwear Pain Scale: 0-10 Numeric Is Patient Pain Free? Yes - Nurse 1 - General Ulcer Measurement Start: 11/13/24 09:04 Freq: Status: Active Protocol: Activity Type Activity Date Activity User E-sign Co-sign Detail Recorded Client Recorded Date Recorded By Document 11/13/24 09:04 ZIGGY [id number] 11/13/24 09:06 ZIGGY 11/13/24 09:04 Wound Center Nurse 1 #23 Right Lateral ankle -Combined with other wound No -Current Size (cm) - Length 4.5 -Current Size (cm) - Width 3.6 -Current Size (cm) - Depth 0.3 -Total Square Cm 16.20 -Photo Taken Yes -Tunneling No -Undermining/Tunneling No -Circular Undermining No -Exudate Amt Medium -Exudate Type Serosanguineous -Wound Margin Thickened & Rolled Under -Granulation Amt Medium (34-66%) -Granulation Quality [place] -Slough/Fibrin Yes -Necrosis Amt Medium (34-66%) -Necrotic Tissue Type Adherent Slough -Structure Exposed N/A -Texture (Natacha-wound Skin Appearance) Scarring -Moisture (Natacha-wound Skin Appearance) Maceration -Color (Natacha-wound Skin Appearance) Assessed -Temperature (Natacha-wound Skin No Abnormality Appearance) (Pt Warm) -Tenderness on Palpation (Natacha-wound No Skin Appearance) -Ulcer Cleansing Wound Cleanser -Foul Odor after Cleansing No -Anesthetic Used 5% Lidocaine Gel Lower Limb Edema Present Yes Right Calf (cm) 32.5 Right Ankle (cm) 22 - Nurse 2 - General Ulcer CM Notes Start: 11/13/24 09:04 Freq: Status: Active Protocol: Activity Type Activity Date Activity User E-sign Co-sign Detail Recorded Client Recorded Date Recorded By Document 11/13/24 09:20 LISSY [id number] 11/13/24 09:23 LISSY 11/13/24 09:20 Wound Center Nurse 2 #23 Right Lateral ankle -Time 09:21 -Correct Patient Yes -Correct Side, Site, Position Yes -Correct Procedure Yes -Procedure Performed Yes -Type of Procedure Debridement -Clinical Debridement Subcutaneous -Tissue Removed Subcutaneous -Post Debridement (cm) - Length 5 -Post Debridement (cm) - Width 3.5 -Post Debridement (cm) - Depth 0.3 -Total Square (Post) (cm) 17.5 -Area of Debridement (cm) - Length 5 -Area of Debridement (cm) - Width 3.5 -Total Square (Area) (cm) 17.5 -Tunneling No -Undermining/Tunneling No -Circular Undermining No -Wound/Ulcer Outcome Not Healed -Ulcer Cleansing Rinsed/ Irrigated with Saline -Foul Odor after Cleansing No -Bioengineered Tissue Yes -Type of Bioengineered Tissue Epifix Mesh -Expiration Date 05/10/29 -Product Lot Number [id number] -Percent Used 100 -Lot number of Saline Used [id number] -Bleeding Controlled with Pressure -Treatment Response Procedure Tolerated Well -Offloading Yes -Type of Offloading Total Contact Cast (TCC) - Right ($) -Debridement - Subq, 1st 20sq cm No -Apply Skin Sub - 1st 25 sq cm - Legs 1 -Epifix Mesh (per sq cm) 11 Pain Scale: 0-10 Numeric Is Patient Pain Free? Yes - Nurse 3 - General Ulcer D/C NN Start: 11/13/24 09:04 Freq: Status: Active Protocol: Activity Type Activity Date Activity User E-sign Co-sign Detail Recorded Client Recorded Date Recorded By Document 11/13/24 09:38 ZIGGY [id number] 11/13/24 09:39 ZIGGY 11/13/24 09:38 Wound Care Center Nurse 3 #23 Right Lateral ankle -Primary Dressing Applied Optilok 6.5x10 -Other Dressing PRIMARY LAYER OF TCC APPLIED -Optilok 6.5x10 1 Treatment Response Procedure Tolerated Well Pain Scale: 0-10 Numeric Is Patient Pain Free? Yes - Visit Discharge Discharge Condition Stable Ambulatory Status Wheelchair Transportation Private Auto Medication Reconcilliation completed & No provided to patient/care provider Clinical Summary of Care Provided Yes Assessment/Plan Assessment/Plan (1) Non-pressure chronic ulcer of other part of right foot with necrosis of bone: CODE(S): L97.514 - Non-pressure chronic ulcer of other part of right foot with necrosis of bone PLAN: Exam performed. Patient is awaiting AV fistula, this is delayed due to nonhealing ulceration to right lateral ankle. Right lateral ankle slightly improved in size today. There is some concern for initial cellulitis development. Right lateral ankle wound was excisionally debrided down to including level of subcutaneous tissue of all nonviable tissue using a 5 mm dermal curette. Hemostasis obtained with light compression. Topical anesthesia used. Patient tolerated procedure well. Pre and postdebridement measurements documented nursing notes. Right ankle radiographs were ordered to evaluate for deep infection Right lateral ankle wound was flushed with saline and swab cultures were taken. Prescription for 10 days worth of doxycycline and ciprofloxacin were provided. Today a 4 x 4.5 cm EpiFix graft was applied to the right lateral ankle. This is 11 billing units. Entire graft used, no waste. This was stabilized with overlying wound veil and Steri-Strips. Additional dressing consisted of a bolstered dry sterile dressing was applied to the right lower extremity. Total contact cast was applied to the right lower extremity with the ankle and foot held in a rectus position relative to the leg. Patient only bears weight to transfer to wheelchair. She will continue this until a contact cast. Patient is a poor surgical candidate due to diabetic neuropathy, end-stage renal disease, noncompliance, poor nutritional status for right lower extremity reconstruction; therefore, upon wound healing plan will be for custom bracing of the right lower extremity due to severe varus deformity with loss of peroneus brevis tendon. If there is prolonged nonhealing or development of acute life/limb threatening infection patient may require below-knee amputation to right lower extremity. Patient is understanding of this. Patient will follow-up on a weekly basis. 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
--- NOTE | 2024-11-14 12:12 | WC ---
PHOTO 11/13/24 RIGHT LATERAL ANKLE
[2024-11-20 09:53] VITALS: BP 128/62; PULSE 67; RESP 18; TEMP 36.4
--- NOTE | 2024-11-21 15:13 | NURSING ---
PHOTO 11/20/24 RIGHT LAT ANKLE
[2024-12-04 10:49] VITALS: BP 159/98; PULSE 79; RESP 18; TEMP 36.8
--- NOTE | 2024-12-04 11:17 | PCM.WC.PN ---
History of Present Illness Date of Service: 12/04/24 Chief Complaint: right foot ulcer left foot ulcer History of Wound: 59-year-old female with end-stage renal disease, poorly controlled type 2 diabetes history of bilateral nonhealing ulcerations requiring amputation presents for chronic right foot ulceration in setting of varus deformity and peripheral neuropathy. Patient denies constitutional symptoms. Patient notes some increased swelling today due to dressing bunching up. Patient denies pain to wound site. Patient has no other complaints. Progress of Wound: Patient follow-up right lateral ankle wound. Patient was recently hospitalized for unspecified reason. Will request medical discharge. Patient denies fever chills nausea vomiting chest pain calf pain shortness of breath today. Patient notes improvement to right lateral ankle wound. Objective Data Objective Data Vital Signs: Vital Signs Temp Pulse Resp BP O2 Del Method 98.3 F 79 18 159/98 H Room Air 12/04/24 10:49 12/04/24 10:49 12/04/24 10:49 12/04/24 10:49 12/04/24 10:49 Oxygen Delivery Method Room Air Lab / Micro Data Micro: Microbiology 11/13/24 09:15 Ulcer, Decubitus - Right Foot Gram Stain - Final 11/13/24 09:15 Ulcer, Decubitus - Right Foot Wound Culture - Final ESBL Klebsiella pneumoniae pne 11/13/24 09:15 Ulcer, Decubitus - Right Foot Anaerobic Culture - Final No anaerobic bacteria isolated. Physical Exam Narrative Vascular: Dorsalis pedis posterior tibial pulses palpable 2 out of 4 to bilateral lower extremity compartments. Neurologic: Absent light touch protective sensation to bilateral lower extremity extending into proximal leg Dermatologic: Residual lateral ankle ulceration noted to the right ankle. This wound is down to level of subcutaneous tissue there is no evidence of deep probing or undermining. There is some fibrous tissue noted predebridement, postdebridement the wound demonstrates clean granular base. There is mild periwound erythema edema noted today. Pre and postdebridement measurements documented nursing notes. Musculoskeletal: Cavovarus deformity right lower extremity. Rectus alignment of left ankle and foot. Debridement Note Debridement Note Post-Debridement Measurements and Additional Note: Post-Debridement Measurements/Treatment [place] - Nurse 1 - General Ulcer Assessment Start: 11/13/24 09:04 Freq: Status: Active Protocol: SHANICE Activity Type Activity Date Activity User E-sign Co-sign Detail Recorded Client Recorded Date Recorded By Document 11/13/24 09:04 RB [id number] 11/13/24 09:06 RB Document 11/20/24 09:53 KW [id number] 11/20/24 10:03 KW Document 12/04/24 10:49 DS [id number] 12/04/24 10:50 DS Edit Result 12/04/24 10:49 DS (1) [id number] 12/04/24 10:59 DS (1) Blood Pressure (90/60-120/80) => 159/98 H Blood Pressure Mean (mm Hg) => 118 11/13/24 11/20/24 12/04/24 09:04 09:53 10:49 WC - Today's Visit Information Type of service Follow-up Visit Follow-up Visit Follow-up Visit (Physician/SUGAR PLANTATION MANAGER (Physician/SUGAR PLANTATION MANAGER (Physician/SUGAR PLANTATION MANAGER ) ) ) Arrival Mode Wheelchair Ambulatory Wheelchair Transfer Assistance Manual Patient Identification Verified (Name & Yes Yes Yes ) Patient Requires Transmission-Based No No Precautions Safety Precautions Fall Prevention Finger Stick Blood Sugar(mg/dl) (if 213 indicated): Blood Sugar Stated by Patient Vital Signs Temperature (97.8 F-99.1 F) 97.3 F L 97.5 F L 98.3 F Temperature Source Temporal Temporal Temporal Pulse Rate (60-100) 71 67 79 Pulse Location Monitor Monitor Monitor Respiratory Rate (12-18) 18 18 18 Respiratory rate source Observation Observation Observation Oxygen Delivery Method Room Air Room Air Blood Pressure (90/60-120/80) 159/83 H 128/62 H 159/98 H Blood Pressure Mean (mm Hg) 108 84 118 Source Monitor Monitor Position Sitting Semi-Fowlers Blood Pressure Location Left Arm Left Forearm History Since Last Visit- (Skip if this is Patient's initial visit) Have you changed medications since your No No No last visit? Any new allergies or adverse reactions No No No Had a fall/change in ADL's that may No No No increase risk of falls Signs or symptoms of abuse and/or No No No neglect since last visit Have you been in the hospital since your No No Yes last visit? Has dressing in place as prescribed Yes Yes No Has compression in place as prescribed Yes Yes No Has offloadiing in place as prescribed N/A Yes No Experienced any changes in pain level or No No No management Left Footwear Regular Shoe No Footwear No Footwear Right Footwear No Footwear Total Contact No Footwear Cast Pain Scale: 0-10 Numeric Is Patient Pain Free? Yes Yes Yes WC - Nurse 1 - General Ulcer Measurement Start: 11/13/24 09:04 Freq: Status: Active Protocol: Activity Type Activity Date Activity User E-sign Co-sign Detail Recorded Client Recorded Date Recorded By Document 11/13/24 09:04 RB [id number] 11/13/24 09:06 RB Document 11/20/24 09:53 KW [id number] 11/20/24 10:03 KW Document 12/04/24 10:50 DS [id number] 12/04/24 10:59 DS 11/13/24 11/20/24 12/04/24 09:04 09:53 10:50 Wound Center Nurse 1 #23 Right Lateral ankle -Combined with other wound No -Current Size (cm) - Length 4.5 4.5 4.0 -Current Size (cm) - Width 3.6 4 3.2 -Current Size (cm) - Depth 0.3 0 0.2 -Total Square Cm 16.20 18.0 12.80 -Date of Last Picture (Recall this 11/20/24 12/04/24 field) -Photo Taken Yes Yes -Epithelialization Medium 34-66% -Tunneling No No -Undermining/Tunneling No No -Circular Undermining No No -Exudate Amt Medium Large Small -Exudate Type Serosanguineous Serosanguineous Serosanguineous -Wound Margin Thickened & Distinct, Distinct, Rolled Under Outline Outline Attached Attached -Granulation Amt Medium (34-66%) Large (67-100%) Large (67-100%) -Granulation Quality [place] Hyper- granulation, [place] -Slough/Fibrin Yes -Necrosis Amt Medium (34-66%) Small (1-33%) -Necrotic Tissue Type Adherent Slough Adherent Slough -Structure Exposed N/A -Texture (Natacha-wound Skin Appearance) Scarring Assessed Assessed -Moisture (Natacha-wound Skin Appearance) Maceration Assessed Assessed -Color (Natacha-wound Skin Appearance) Assessed Assessed Assessed -Temperature (Natacha-wound Skin No Abnormality No Abnormality No Abnormality Appearance) (Pt Warm) (Pt Warm) (Pt Warm) -Tenderness on Palpation (Natacha-wound No No No Skin Appearance) -Ulcer Cleansing Wound Cleanser Soap and Water Soap and Water -Foul Odor after Cleansing No No No -Anesthetic Used 5% Lidocaine 5% Lidocaine 5% Lidocaine Gel Gel Gel Lower Limb Edema Present Yes Right Calf (cm) 32.5 Right Ankle (cm) 22 - Nurse 2 - General Ulcer CM Notes Start: 11/13/24 09:04 Freq: Status: Active Protocol: Activity Type Activity Date Activity User E-sign Co-sign Detail Recorded Client Recorded Date Recorded By Document 11/13/24 09:20 [id number] 11/13/24 09:23 Document 11/20/24 10:11 [id number] 11/20/24 10:23 Document 12/04/24 11:14 [id number] 12/04/24 11:16 11/13/24 11/20/24 12/04/24 09:20 10:11 11:14 Wound Center Nurse 2 #23 Right Lateral ankle -Time 09:21 10:21 11:14 -Correct Patient Yes Yes Yes -Correct Side, Site, Position Yes Yes Yes -Correct Procedure Yes Yes Yes -Procedure Performed Yes Yes Yes -Type of Procedure Debridement Debridement Debridement -Clinical Debridement Subcutaneous Subcutaneous Subcutaneous -Tissue Removed Subcutaneous Subcutaneous Subcutaneous -Post Debridement (cm) - Length 5 5.9 2.2 -Post Debridement (cm) - Width 3.5 3.7 2.5 -Post Debridement (cm) - Depth 0.3 0.2 0.2 -Total Square (Post) (cm) 17.5 21.83 5.50 -Area of Debridement (cm) - Length 5 5.9 2.2 -Area of Debridement (cm) - Width 3.5 3.7 2.5 -Total Square (Area) (cm) 17.5 21.83 5.50 -Tunneling No No No -Undermining/Tunneling No No No -Circular Undermining No No No -Wound/Ulcer Outcome Not Healed Not Healed Not Healed -Ulcer Cleansing Rinsed/ Rinsed/ Rinsed/ Irrigated with Irrigated with Irrigated with Saline Saline Saline -Foul Odor after Cleansing No No No -Bioengineered Tissue Yes Yes Yes -Type of Bioengineered Tissue Epifix Mesh Epifix Mesh Epifix Mesh -Expiration Date 05/10/29 05/10/29 05/10/29 -Product Lot Number [id number] -Percent Used 100 100 100 -Lot number of Saline Used [id number] -Bleeding Controlled with Pressure Pressure Pressure -Treatment Response Procedure Procedure Procedure Tolerated Well Tolerated Well Tolerated Well -Offloading Yes Yes Yes -Type of Offloading Total Contact Total Contact Total Contact Cast (TCC) - Cast (TCC) - Cast (TCC) - Right ($) Right ($) Right ($) -Debridement - Subq, 1st 20sq cm No No No -Apply Skin Sub - 1st 25 sq cm - Legs 1 1 1 -Epifix Mesh (per sq cm) 11 11 11 Pain Scale: 0-10 Numeric Is Patient Pain Free? Yes Yes Yes - Nurse 3 - General Ulcer D/C NN Start: 11/13/24 09:04 Freq: Status: Active Protocol: Activity Type Activity Date Activity User E-sign Co-sign Detail Recorded Client Recorded Date Recorded By Document 11/13/24 09:38 RB [id number] 11/13/24 09:39 RB Document 11/20/24 10:38 [id number] 11/20/24 10:38 11/13/24 11/20/24 09:38 10:38 Wound Care Center Nurse 3 #23 Right Lateral ankle -Primary Dressing Applied Optilok 6.5x10 Optilok 6.5x10 -Other Dressing PRIMARY LAYER OF TCC APPLIED -Primary Dressing Covered/Secured with Secured with Tape -Optilok 6.5x10 1 1 Treatment Response Procedure Tolerated Well Pain Scale: 0-10 Numeric Is Patient Pain Free? Yes Yes - Visit Discharge Discharge Condition Stable Stable Ambulatory Status Wheelchair Wheelchair Transportation Private Auto Medication Reconcilliation completed & No No provided to patient/care provider Clinical Summary of Care Provided Yes Yes Assessment/Plan Assessment/Plan (1) Non-pressure chronic ulcer of other part of right foot with necrosis of bone: CODE(S): L97.514 - Non-pressure chronic ulcer of other part of right foot with necrosis of bone PLAN: Exam performed. Patient is awaiting AV fistula, this is delayed due to nonhealing ulceration to right lateral ankle. Right lateral ankle slightly improved in size today. Resolved cellulitis right ankle. Right lateral ankle wound was excisionally debrided down to including level of subcutaneous tissue of all nonviable tissue using a 5 mm dermal curette. Hemostasis obtained with light compression. Topical anesthesia used. Patient tolerated procedure well. Pre and postdebridement measurements documented nursing notes. Right ankle radiographs reviewed, no evidence of osteomyelitis Today a 4 x 4.5 cm EpiFix graft was applied to the right lateral ankle. This is 11 billing units. Entire graft used, no waste. This was stabilized with overlying wound veil and Steri-Strips. Additional dressing consisted of a bolstered dry sterile dressing was applied to the right lower extremity. Total contact cast was applied to the right lower extremity with the ankle and foot held in a rectus position relative to the leg. Patient only bears weight to transfer to wheelchair. She will continue this until a contact cast. Patient is a poor surgical candidate due to diabetic neuropathy, end-stage renal disease, noncompliance, poor nutritional status for right lower extremity reconstruction; therefore, upon wound healing plan will be for custom bracing of the right lower extremity due to severe varus deformity with loss of peroneus brevis tendon. If there is prolonged nonhealing or development of acute life/limb threatening infection patient may require below-knee amputation to right lower extremity. Patient is understanding of this. Patient will follow-up on a weekly basis. (2) Type 2 diabetes mellitus with diabetic polyneuropathy: CODE(S): E11.42 - Type 2 diabetes mellitus with diabetic polyneuropathy QUALIFIERS: Diabetes mellitus termite renewal inspector insulin use: with assisted use Qualified Code(s): E11.42 - Type 2 diabetes mellitus with diabetic polyneuropathy; Z79.4 - director long term care (current) use of insulin (3) Varus deformity, not elsewhere classified, right ankle: CODE(S): M21.171 - Varus deformity, not elsewhere classified, right ankle
--- NOTE | 2024-12-05 08:20 | WC ---
PHOTO 12/04/24 RIGHT LATERAL ANKLE
== END 2024-12-07 23:59 | disposition home or self-care (01) ==
LOC: WC 09:30
PROVIDERS: PCP Family Medicine; Referring Provider Podiatrist; Visit Provider Podiatrist
DX: E11.622 Type 2 diabetes mellitus with other skin ulcer (principal); N18.6 End stage renal disease; L97.312 Non-pressure chronic ulcer of right ankle with fat layer exposed; E11.22 Type 2 diabetes mellitus with diabetic chronic kidney disease; E11.42 Type 2 diabetes mellitus with diabetic polyneuropathy; Z79.4 Long term (current) use of insulin; M21.171 Varus deformity, not elsewhere classified, right ankle; Z79.82 Long term (current) use of aspirin; Z79.890 Hormone replacement therapy; Z79.899 Other long term (current) drug therapy
CPT/HCPCS: 15271; 29445; 87070; 87075; 87077; 87186; 87205; Q4186

== ENCOUNTER 2025-01-01 09:30 | Outpatient (RCR) | payer MEDICARE, MEDICAID, SELFPAY ==
[2018-09-21 13:23] VITALS: BMI 29.3
[2024-12-08 01:06] VITALS: BP 159/98; PULSE 79; RESP 18; TEMP 36.8
[2024-12-11 10:06] VITALS: BP 179/84; PULSE 68; RESP 18; TEMP 35.7
--- NOTE | 2024-12-11 10:23 | PCM.WC.PN ---
History of Present Illness Date of Service: 12/11/24 Chief Complaint: right foot ulcer left foot ulcer History of Wound: 59-year-old female with end-stage renal disease, poorly controlled type 2 diabetes history of bilateral nonhealing ulcerations requiring amputation presents for chronic right foot ulceration in setting of varus deformity and peripheral neuropathy. Patient denies constitutional symptoms. Patient notes some increased swelling today due to dressing bunching up. Patient denies pain to wound site. Patient has no other complaints. Objective Data Objective Data Vital Signs: Vital Signs Temp Pulse Resp BP 96.3 F L 68 18 179/84 H 12/11/24 10:06 12/11/24 10:06 12/11/24 10:06 12/11/24 10:06 Physical Exam Narrative Vascular: Dorsalis pedis posterior tibial pulses palpable 2 out of 4 to bilateral lower extremity compartments. Neurologic: Absent light touch protective sensation to bilateral lower extremity extending into proximal leg Dermatologic: Residual lateral ankle ulceration noted to the right ankle. This wound is down to level of subcutaneous tissue there is no evidence of deep probing or undermining. There is some fibrous tissue noted predebridement, postdebridement the wound demonstrates clean granular base. There is mild periwound erythema edema noted today. Pre and postdebridement measurements documented nursing notes. Musculoskeletal: Cavovarus deformity right lower extremity. Rectus alignment of left ankle and foot. Const alert and oriented x3 Debridement Note Debridement Note Post-Debridement Measurements and Additional Note: Post-Debridement Measurements/Treatment - Nurse 1 - General Ulcer Assessment Start: 12/11/24 10:06 Freq: Status: Active Protocol: SHANICE Activity Type Activity Date Activity User E-sign Co-sign Detail Recorded Client Recorded Date Recorded By Document 12/11/24 10:06 ZIGGY [id number] 12/11/24 10:10 ZIGGY 12/11/24 10:06 - Today's Visit Information Type of service Follow-up Visit (Physician/SOAKER SODA WORKER ) Arrival Mode Wheelchair Transfer Assistance Manual Patient Identification Verified (Name & Yes ) Patient Requires Transmission-Based No Precautions Vital Signs Temperature (97.8 F-99.1 F) 96.3 F L Temperature Source Temporal Pulse Rate (60-100) 68 Pulse Location Monitor Respiratory Rate (12-18) 18 Respiratory rate source Observation Blood Pressure (90/60-120/80) 179/84 H Blood Pressure Mean (mm Hg) 115 Source Monitor Position Semi-Fowlers History Since Last Visit- (Skip if this is Patient's initial visit) Have you changed medications since your No last visit? Any new allergies or adverse reactions No Had a fall/change in ADL's that may No increase risk of falls Signs or symptoms of abuse and/or No neglect since last visit Have you been in the hospital since your No last visit? Has dressing in place as prescribed Yes Has compression in place as prescribed N/A Has offloadiing in place as prescribed Yes Experienced any changes in pain level or No management Left Footwear No Footwear Right Footwear Total Contact Cast Pain Scale: 0-10 Numeric Is Patient Pain Free? Yes - Nurse 1 - General Ulcer Measurement Start: 12/11/24 10:06 Freq: Status: Active Protocol: Activity Type Activity Date Activity User E-sign Co-sign Detail Recorded Client Recorded Date Recorded By Document 12/11/24 10:06 ZIGGY [id number] 12/11/24 10:10 ZIGGY 12/11/24 10:06 Wound Center Nurse 1 #23 Right Lateral ankle -Combined with other wound No -Current Size (cm) - Length 3.4 -Current Size (cm) - Width 2.7 -Current Size (cm) - Depth 0.1 -Total Square Cm 9.18 -Photo Taken Yes -Tunneling No -Undermining/Tunneling No -Circular Undermining No -Exudate Amt Large -Exudate Type Serosanguineous -Wound Margin Distinct, Outline Attached -Granulation Amt Large (67-100%) -Granulation Quality [place] -Slough/Fibrin Yes -Necrosis Amt Small (1-33%) -Necrotic Tissue Type Adherent Slough -Structure Exposed N/A -Texture (Natacha-wound Skin Appearance) Scarring -Moisture (Natacha-wound Skin Appearance) Assessed -Color (Natacha-wound Skin Appearance) Assessed -Temperature (Natacha-wound Skin No Abnormality Appearance) (Pt Warm) -Tenderness on Palpation (Natacha-wound No Skin Appearance) -Ulcer Cleansing Wound Cleanser -Foul Odor after Cleansing No -Anesthetic Used 5% Lidocaine Gel -Wound Comment(s) TCC removed skin abrasion on right lower posterior thigh knee bend of knee noted - Nurse 2 - General Ulcer CM Notes Start: 12/11/24 10:06 Freq: Status: Active Protocol: Activity Type Activity Date Activity User E-sign Co-sign Detail Recorded Client Recorded Date Recorded By Document 12/11/24 10:21 DS [id number] 12/11/24 10:23 DS 12/11/24 10:21 Wound Center Nurse 2 -Time 10:15 -Correct Patient Yes -Correct Side, Site, Position Yes -Correct Procedure Yes -Procedure Performed Yes -Type of Procedure Debridement -Clinical Debridement Subcutaneous -Tissue Removed Subcutaneous -Post Debridement (cm) - Length 2.0 -Post Debridement (cm) - Width 2.3 -Post Debridement (cm) - Depth 0.2 -Total Square (Post) (cm) 4.60 -Area of Debridement (cm) - Length 2.0 -Area of Debridement (cm) - Width 2.3 -Total Square (Area) (cm) 4.60 -Tunneling No -Undermining/Tunneling No -Circular Undermining No -Wound/Ulcer Outcome Not Healed -Ulcer Cleansing Rinsed/ Irrigated with Saline -Foul Odor after Cleansing No -Bioengineered Tissue Yes -Type of Bioengineered Tissue Epifix Mesh -Expiration Date 05/10/29 -Product Lot Number [id number] -Percent Used 100 -Lot number of Saline Used [id number] -Bleeding Controlled with Pressure -Treatment Response Procedure Tolerated Well -Debridement - Subq, 1st 20sq cm No -Apply Skin Sub - 1st 25 sq cm - Feet 1 -Epifix Mesh (per sq cm) 11 Pain Scale: 0-10 Numeric Is Patient Pain Free? Yes Assessment/Plan Assessment/Plan (1) Non-pressure chronic ulcer of other part of right foot with necrosis of bone: CODE(S): L97.514 - Non-pressure chronic ulcer of other part of right foot with necrosis of bone PLAN: Exam performed. Patient is awaiting AV fistula, this is delayed due to nonhealing ulceration to right lateral ankle. Right lateral ankle slightly improved in size today. Resolved cellulitis right ankle. Right lateral ankle wound was excisionally debrided down to including level of subcutaneous tissue of all nonviable tissue using a 5 mm dermal curette. Hemostasis obtained with light compression. Topical anesthesia used. Patient tolerated procedure well. Pre and postdebridement measurements documented nursing notes. Right ankle radiographs reviewed, no evidence of osteomyelitis Today a 4 x 4.5 cm EpiFix graft was applied to the right lateral ankle. This is 11 billing units. Entire graft used, no waste. This was stabilized with overlying wound veil and Steri-Strips. Additional dressing consisted of a bolstered dry sterile dressing was applied to the right lower extremity. Total contact cast was applied to the right lower extremity with the ankle and foot held in a rectus position relative to the leg. Patient only bears weight to transfer to wheelchair. She will continue this until a contact cast. Patient is a poor surgical candidate due to diabetic neuropathy, end-stage renal disease, noncompliance, poor nutritional status for right lower extremity reconstruction; therefore, upon wound healing plan will be for custom bracing of the right lower extremity due to severe varus deformity with loss of peroneus brevis tendon. If there is prolonged nonhealing or development of acute life/limb threatening infection patient may require below-knee amputation to right lower extremity. Patient is understanding of this. Patient will follow-up on a weekly basis. (2) Type 2 diabetes mellitus with diabetic polyneuropathy: CODE(S): E11.42 - Type 2 diabetes mellitus with diabetic polyneuropathy QUALIFIERS: Diabetes mellitus [facility] insulin use: with [facility] use Qualified Code(s): E11.42 - Type 2 diabetes mellitus with diabetic polyneuropathy; Z79.4 - skilled nursing (current) use of insulin (3) Varus deformity, not elsewhere classified, right ankle: CODE(S): M21.171 - Varus deformity, not elsewhere classified, right ankle
--- NOTE | 2024-12-12 14:04 | WC ---
PHOTO 12/11/24 RIGHT LATERAL ANKLE
[2024-12-14 11:11] VITALS: BP 168/84; PULSE 78; RESP 18; TEMP 36.1
[2024-12-18 09:48] VITALS: BP 200/66; PULSE 69; RESP 16; TEMP 35.9
--- NOTE | 2024-12-18 10:15 | PCM.WC.PN ---
History of Present Illness Date of Service: 12/18/24 Chief Complaint: right foot ulcer left foot ulcer History of Wound: 59-year-old female with end-stage renal disease, poorly controlled type 2 diabetes history of bilateral nonhealing ulcerations requiring amputation presents for chronic right foot ulceration in setting of varus deformity and peripheral neuropathy. Patient denies constitutional symptoms. Patient notes some increased swelling today due to dressing bunching up. Patient denies pain to wound site. Patient has no other complaints. Objective Data Objective Data Vital Signs: Vital Signs Temp Pulse Resp BP O2 Del Method 96.7 F L 69 16 200/66 H Room Air 12/18/24 09:48 12/18/24 09:48 12/18/24 09:48 12/18/24 09:48 12/18/24 09:48 Oxygen Delivery Method Room Air Physical Exam Narrative Vascular: Dorsalis pedis posterior tibial pulses palpable 2 out of 4 to bilateral lower extremity compartments. Neurologic: Absent light touch protective sensation to bilateral lower extremity extending into proximal leg Dermatologic: Residual lateral ankle ulceration noted to the right ankle. This wound is down to level of subcutaneous tissue there is no evidence of deep probing or undermining. There is some fibrous tissue noted predebridement, postdebridement the wound demonstrates clean granular base. There is mild periwound erythema edema noted today. Pre and postdebridement measurements documented nursing notes. Musculoskeletal: Cavovarus deformity right lower extremity. Rectus alignment of left ankle and foot. Const alert and oriented x3 Debridement Note Debridement Note Post-Debridement Measurements and Additional Note: Post-Debridement Measurements/Treatment WC - Nurse 1 - General Ulcer Assessment Start: 12/11/24 10:06 Freq: Status: Active Protocol: [email or web address] Activity Type Activity Date Activity User E-sign Co-sign Detail Recorded Client Recorded Date Recorded By Document 12/11/24 10:06 RB [id number] 12/11/24 10:10 RB Document 12/14/24 11:11 RB [id number] 12/14/24 11:13 RB Edit Result 12/14/24 11:11 RB (1) [id number] 12/14/24 11:14 RB Document 12/18/24 09:48 JF [id number] 12/18/24 09:49 JF (1) Blood Pressure (90/60-120/80) => 168/84 H Blood Pressure Mean (mm Hg) => 112 12/11/24 12/14/24 12/18/24 10:06 11:11 09:48 - Today's Visit Information Type of service Follow-up Visit Nurse-only Follow-up Visit (Physician/WEIGHTS AND MEASURES INSPECTOR Visit (Physician/WEIGHTS AND MEASURES INSPECTOR ) ) Arrival Mode Wheelchair Wheelchair Wheelchair Transfer Assistance Manual Manual Patient Identification Verified (Name & Yes Yes Yes ) Patient Requires Transmission-Based No No Precautions Vital Signs Temperature (97.8 F-99.1 F) 96.3 F L 97 F L 96.7 F L Temperature Source Temporal Temporal Temporal Pulse Rate (60-100) 68 78 69 Pulse Location Monitor Monitor Monitor Respiratory Rate (12-18) 18 18 16 Respiratory rate source Observation Observation Observation Oxygen Delivery Method Room Air Blood Pressure (90/60-120/80) 179/84 H 168/84 H 200/66 H Blood Pressure Mean (mm Hg) 115 112 110 Source Monitor Monitor Monitor Position Semi-Fowlers Sitting Sitting Blood Pressure Location Left Arm Left Arm History Since Last Visit- (Skip if this is Patient's initial visit) Have you changed medications since your No No No last visit? Any new allergies or adverse reactions No No No Had a fall/change in ADL's that may No No No increase risk of falls Signs or symptoms of abuse and/or No No No neglect since last visit Have you been in the hospital since your No No No last visit? Has dressing in place as prescribed Yes Yes Yes Has compression in place as prescribed N/A Yes Yes Has offloadiing in place as prescribed Yes N/A N/A Experienced any changes in pain level or No No No management Left Footwear No Footwear No Footwear No Footwear Right Footwear Total Contact No Footwear No Footwear Cast Pain Scale: 0-10 Numeric Is Patient Pain Free? Yes Yes Yes - Nurse 1 - General Ulcer Measurement Start: 12/11/24 10:06 Freq: Status: Active Protocol: Activity Type Activity Date Activity User E-sign Co-sign Detail Recorded Client Recorded Date Recorded By Document 12/11/24 10:06 RB [id number] 12/11/24 10:10 RB Document 12/14/24 11:11 RB [id number] 12/14/24 11:13 RB Document 12/18/24 09:48 JF [id number] 12/18/24 09:49 JF 12/11/24 12/14/24 12/18/24 10:06 11:11 09:48 Wound Center Nurse 1 #23 Right Lateral ankle -Combined with other wound No -Current Size (cm) - Length 3.4 3.5 -Current Size (cm) - Width 2.7 2.2 -Current Size (cm) - Depth 0.1 0.2 -Total Square Cm 9.18 7.70 -Date of Last Picture (Recall this 12/18/24 field) -Photo Taken Yes -Epithelialization Medium 34-66% -Tunneling No -Undermining/Tunneling No -Circular Undermining No -Exudate Amt Large Medium Small -Exudate Type Serosanguineous Serosanguineous Serosanguineous -Wound Margin Distinct, Distinct, Outline Outline Attached Attached -Granulation Amt Large (67-100%) Large (67-100%) -Granulation Quality [place] Red -Slough/Fibrin Yes -Necrosis Amt Small (1-33%) -Necrotic Tissue Type Adherent Slough -Structure Exposed N/A -Texture (Natacha-wound Skin Appearance) Scarring Assessed -Moisture (Natacha-wound Skin Appearance) Assessed Assessed -Color (Natacha-wound Skin Appearance) Assessed Assessed -Temperature (Natacha-wound Skin No Abnormality No Abnormality Appearance) (Pt Warm) (Pt Warm) -Tenderness on Palpation (Natacha-wound No No Skin Appearance) -Ulcer Cleansing Wound Cleanser Soap and Water -Foul Odor after Cleansing No No -Anesthetic Used 5% Lidocaine 4% Lidocaine Gel Solution -Wound Comment(s) TCC removed skin abrasion on right lower posterior thigh knee bend of knee noted Lower Limb Edema Present Yes Right Calf (cm) 28 Right Ankle (cm) 23.5 WC - Nurse 2 - General Ulcer CM Notes Start: 12/11/24 10:06 Freq: Status: Active Protocol: Activity Type Activity Date Activity User E-sign Co-sign Detail Recorded Client Recorded Date Recorded By Document 12/11/24 10:21 DS [id number] 12/11/24 10:23 DS 12/11/24 10:21 Wound Center Nurse 2 -Time 10:15 -Correct Patient Yes -Correct Side, Site, Position Yes -Correct Procedure Yes -Procedure Performed Yes -Type of Procedure Debridement -Clinical Debridement Subcutaneous -Tissue Removed Subcutaneous -Post Debridement (cm) - Length 2.0 -Post Debridement (cm) - Width 2.3 -Post Debridement (cm) - Depth 0.2 -Total Square (Post) (cm) 4.60 -Area of Debridement (cm) - Length 2.0 -Area of Debridement (cm) - Width 2.3 -Total Square (Area) (cm) 4.60 -Tunneling No -Undermining/Tunneling No -Circular Undermining No -Wound/Ulcer Outcome Not Healed -Ulcer Cleansing Rinsed/ Irrigated with Saline -Foul Odor after Cleansing No -Bioengineered Tissue Yes -Type of Bioengineered Tissue Epifix Mesh -Expiration Date 05/10/29 -Product Lot Number [id number] -Percent Used 100 -Lot number of Saline Used [id number] -Bleeding Controlled with Pressure -Treatment Response Procedure Tolerated Well -Debridement - Subq, 1st 20sq cm No -Apply Skin Sub - 1st 25 sq cm - Feet 1 -Epifix Mesh (per sq cm) 11 Pain Scale: 0-10 Numeric Is Patient Pain Free? Yes - Nurse 3 - General Ulcer D/C NN Start: 12/11/24 10:06 Freq: Status: Active Protocol: Activity Type Activity Date Activity User E-sign Co-sign Detail Recorded Client Recorded Date Recorded By Document 12/11/24 10:44 RB [id number] 12/11/24 10:48 RB Document 12/14/24 11:11 RB [id number] 12/14/24 11:13 RB 12/11/24 12/14/24 10:44 11:11 Wound Care Center Nurse 3 #23 Right Lateral ankle -Primary Dressing Applied Optilok 8x12, Optilok 6.5x10 Silicone Border Foam 4x4 -Optilok 6.5x10 1 -Optilok 8x12 1 -Silicone Border Foam 4x4 1 -Wound Comment(s) hydrogel foam mepilex to right posterior lower thigh RLE -Multi-Layered Wrap Application Multi-Layer Multi-Layer Comp - Right ($ Comp - Right ($ ) ) -Multi-Layer Compression Right (Qty 1 1 applied) Treatment Response Procedure Procedure Tolerated Well Tolerated Well Pain Scale: 0-10 Numeric Is Patient Pain Free? Yes Yes - Visit Discharge Discharge Condition Stable Stable Ambulatory Status Ambulatory Wheelchair Transportation NH transport IA Medication Reconcilliation completed & No No provided to patient/care provider Clinical Summary of Care Provided Yes Yes Assessment/Plan Assessment/Plan (1) Non-pressure chronic ulcer of other part of right foot with necrosis of bone: CODE(S): L97.514 - Non-pressure chronic ulcer of other part of right foot with necrosis of bone PLAN: Exam performed. Patient is awaiting AV fistula, this is delayed due to nonhealing ulceration to right lateral ankle. Right lateral ankle slightly improved in size today. Resolved cellulitis right ankle. Right lateral ankle wound was excisionally debrided down to including level of subcutaneous tissue of all nonviable tissue using a 5 mm dermal curette. Hemostasis obtained with light compression. Topical anesthesia used. Patient tolerated procedure well. Pre and postdebridement measurements documented nursing notes. Right ankle radiographs reviewed, no evidence of osteomyelitis Today a 4 x 4.5 cm EpiFix graft was applied to the right lateral ankle. This is 11 billing units. Entire graft used, no waste. This was stabilized with overlying wound veil and Steri-Strips. Additional dressing consisted of a bolstered dry sterile dressing was applied to the right lower extremity. Total contact cast was applied to the right lower extremity with the ankle and foot held in a rectus position relative to the leg. Patient only bears weight to transfer to wheelchair. She will continue this until a contact cast. Patient is a poor surgical candidate due to diabetic neuropathy, end-stage renal disease, noncompliance, poor nutritional status for right lower extremity reconstruction; therefore, upon wound healing plan will be for custom bracing of the right lower extremity due to severe varus deformity with loss of peroneus brevis tendon. If there is prolonged nonhealing or development of acute life/limb threatening infection patient may require below-knee amputation to right lower extremity. Patient is understanding of this. Patient will follow-up on a weekly basis. (2) Type 2 diabetes mellitus with diabetic polyneuropathy: CODE(S): E11.42 - Type 2 diabetes mellitus with diabetic polyneuropathy QUALIFIERS: Diabetes mellitus retirement insulin use: with middle or intermediate school principal use Qualified Code(s): E11.42 - Type 2 diabetes mellitus with diabetic polyneuropathy; Z79.4 - penitentiary (current) use of insulin (3) Varus deformity, not elsewhere classified, right ankle: CODE(S): M21.171 - Varus deformity, not elsewhere classified, right ankle
--- NOTE | 2024-12-20 09:39 | WC ---
PHOTO 12/18/24 RIGHT LATERAL ANKLE
[2025-01-01 09:45] VITALS: BP 168/85; PULSE 73; RESP 16; TEMP 36.2
--- NOTE | 2025-01-01 10:46 | PCM.WC.PN ---
History of Present Illness Date of Service: 01/01/25 Chief Complaint: right foot ulcer left foot ulcer History of Wound: 59-year-old female with end-stage renal disease, poorly controlled type 2 diabetes history of bilateral nonhealing ulcerations requiring amputation presents for chronic right foot ulceration in setting of varus deformity and peripheral neuropathy. Patient denies constitutional symptoms. Patient notes some increased swelling today due to dressing bunching up. Patient denies pain to wound site. Patient has no other complaints. Objective Data Objective Data Vital Signs: Vital Signs Temp Pulse Resp BP O2 Del Method 97.2 F L 73 16 168/85 H Room Air 01/01/25 09:45 01/01/25 09:45 01/01/25 09:45 01/01/25 09:45 12/18/24 09:48 Oxygen Delivery Method Room Air Physical Exam Narrative Vascular: Dorsalis pedis posterior tibial pulses palpable 2 out of 4 to bilateral lower extremity compartments. Neurologic: Absent light touch protective sensation to bilateral lower extremity extending into proximal leg Dermatologic: Residual lateral ankle ulceration noted to the right ankle. This wound is down to level of subcutaneous tissue there is no evidence of deep probing or undermining. There is some fibrous tissue noted predebridement, postdebridement the wound demonstrates clean granular base. There is mild periwound erythema edema noted today. Pre and postdebridement measurements documented nursing notes. Musculoskeletal: Cavovarus deformity right lower extremity. Rectus alignment of left ankle and foot. Const alert and oriented x3 Debridement Note Debridement Note Post-Debridement Measurements and Additional Note: Post-Debridement Measurements/Treatment WC - Nurse 1 - General Ulcer Assessment Start: 12/11/24 10:06 Freq: Status: Active Protocol: TENNILLE.HARMONY Activity Type Activity Date Activity User E-sign Co-sign Detail Recorded Client Recorded Date Recorded By Document 12/11/24 10:06 RB [id number] 12/11/24 10:10 RB Document 12/14/24 11:11 RB [id number] 12/14/24 11:13 RB Edit Result 12/14/24 11:11 RB (1) [id number] 12/14/24 11:14 RB Document 12/18/24 09:48 JF [id number] 12/18/24 09:49 JF Document 01/01/25 09:45 ML [id number] 01/01/25 09:49 ML (1) Blood Pressure (90/60-120/80) => 168/84 H Blood Pressure Mean (mm Hg) => 112 12/11/24 12/14/24 12/18/24 10:06 11:11 09:48 - Today's Visit Information Type of service Follow-up Visit Nurse-only Follow-up Visit (Physician/CLOTHES DRIER REPAIRER Visit (Physician/CLOTHES DRIER REPAIRER ) ) Arrival Mode Wheelchair Wheelchair Wheelchair Transfer Assistance Manual Manual Patient Identification Verified (Name & Yes Yes Yes ) Patient Requires Transmission-Based No No Precautions Vital Signs Temperature (97.8 F-99.1 F) 96.3 F L 97 F L 96.7 F L Temperature Source Temporal Temporal Temporal Pulse Rate (60-100) 68 78 69 Pulse Location Monitor Monitor Monitor Respiratory Rate (12-18) 18 18 16 Respiratory rate source Observation Observation Observation Oxygen Delivery Method Room Air Blood Pressure (90/60-120/80) 179/84 H 168/84 H 200/66 H Blood Pressure Mean (mm Hg) 115 112 110 Source Monitor Monitor Monitor Position Semi-Fowlers Sitting Sitting Blood Pressure Location Left Arm Left Arm History Since Last Visit- (Skip if this is Patient's initial visit) Have you changed medications since your No No No last visit? Any new allergies or adverse reactions No No No Had a fall/change in ADL's that may No No No increase risk of falls Signs or symptoms of abuse and/or No No No neglect since last visit Have you been in the hospital since your No No No last visit? Has dressing in place as prescribed Yes Yes Yes Has compression in place as prescribed N/A Yes Yes Has offloadiing in place as prescribed Yes N/A N/A Experienced any changes in pain level or No No No management Left Footwear No Footwear No Footwear No Footwear Right Footwear Total Contact No Footwear No Footwear Cast Pain Scale: 0-10 Numeric Is Patient Pain Free? Yes Yes Yes 01/01/25 09:45 - Today's Visit Information Type of service Follow-up Visit (Physician/CLOTHES DRIER REPAIRER ) Arrival Mode Wheelchair Transfer Assistance Patient Identification Verified (Name & Yes ) Patient Requires Transmission-Based No Precautions Vital Signs Temperature (97.8 F-99.1 F) 97.2 F L Temperature Source Temporal Pulse Rate (60-100) 73 Pulse Location Monitor Respiratory Rate (12-18) 16 Respiratory rate source Observation Oxygen Delivery Method Blood Pressure (90/60-120/80) 168/85 H Blood Pressure Mean (mm Hg) 112 Source Monitor Position Sitting Blood Pressure Location Left Arm History Since Last Visit- (Skip if this is Patient's initial visit) Have you changed medications since your No last visit? Any new allergies or adverse reactions No Had a fall/change in ADL's that may No increase risk of falls Signs or symptoms of abuse and/or No neglect since last visit Have you been in the hospital since your No last visit? Has dressing in place as prescribed Yes Has compression in place as prescribed N/A Has offloadiing in place as prescribed N/A Experienced any changes in pain level or No management Left Footwear Right Footwear Pain Scale: 0-10 Numeric Is Patient Pain Free? No WC - Nurse 1 - General Ulcer Measurement Start: 12/11/24 10:06 Freq: Status: Active Protocol: Activity Type Activity Date Activity User E-sign Co-sign Detail Recorded Client Recorded Date Recorded By Document 12/11/24 10:06 RB [id number] 12/11/24 10:10 RB Document 12/14/24 11:11 RB [id number] 12/14/24 11:13 RB Document 12/18/24 09:48 JF [id number] 12/18/24 09:49 JF Document 01/01/25 09:45 ML [id number] 01/01/25 09:49 ML 12/11/24 12/14/24 12/18/24 10:06 11:11 09:48 Wound Center Nurse 1 #23 Right Lateral ankle -Combined with other wound No -Current Size (cm) - Length 3.4 3.5 -Current Size (cm) - Width 2.7 2.2 -Current Size (cm) - Depth 0.1 0.2 -Total Square Cm 9.18 7.70 -Date of Last Picture (Recall this 12/18/24 field) -Photo Taken Yes -Epithelialization Medium 34-66% -Tunneling No -Undermining/Tunneling No -Circular Undermining No -Exudate Amt Large Medium Small -Exudate Type Serosanguineous Serosanguineous Serosanguineous -Wound Margin Distinct, Distinct, Outline Outline Attached Attached -Granulation Amt Large (67-100%) Large (67-100%) -Granulation Quality [place] Red -Slough/Fibrin Yes -Necrosis Amt Small (1-33%) -Necrotic Tissue Type Adherent Slough -Structure Exposed N/A -Texture (Natacha-wound Skin Appearance) Scarring Assessed -Moisture (Natacha-wound Skin Appearance) Assessed Assessed -Color (Natacha-wound Skin Appearance) Assessed Assessed -Temperature (Natacha-wound Skin No Abnormality No Abnormality Appearance) (Pt Warm) (Pt Warm) -Tenderness on Palpation (Natacha-wound No No Skin Appearance) -Ulcer Cleansing Wound Cleanser Soap and Water -Foul Odor after Cleansing No No -Anesthetic Used 5% Lidocaine 4% Lidocaine Gel Solution -Wound Comment(s) TCC removed skin abrasion on right lower posterior thigh knee bend of knee noted Lower Limb Edema Present Yes Right Calf (cm) 28 Right Ankle (cm) 23.5 01/01/25 09:45 Wound Center Nurse 1 #23 Right Lateral ankle -Combined with other wound -Current Size (cm) - Length 4 -Current Size (cm) - Width 2.5 -Current Size (cm) - Depth 0.1 -Total Square Cm 10.0 -Date of Last Picture (Recall this field) -Photo Taken -Epithelialization -Tunneling -Undermining/Tunneling -Circular Undermining -Exudate Amt Medium -Exudate Type Serosanguineous -Wound Margin -Granulation Amt Medium (34-66%) -Granulation Quality -Slough/Fibrin Yes -Necrosis Amt Medium (34-66%) -Necrotic Tissue Type Adherent Slough -Structure Exposed -Texture (Natacha-wound Skin Appearance) Assessed -Moisture (Natacha-wound Skin Appearance) Assessed -Color (Natacha-wound Skin Appearance) Assessed -Temperature (Natacha-wound Skin No Abnormality Appearance) (Pt Warm) -Tenderness on Palpation (Natacha-wound No Skin Appearance) -Ulcer Cleansing -Foul Odor after Cleansing No -Anesthetic Used 5% Lidocaine Gel -Wound Comment(s) Lower Limb Edema Present Right Calf (cm) Right Ankle (cm) WC - Nurse 2 - General Ulcer CM Notes Start: 12/11/24 10:06 Freq: Status: Active Protocol: Activity Type Activity Date Activity User E-sign Co-sign Detail Recorded Client Recorded Date Recorded By Document 12/11/24 10:21 DS [id number] 12/11/24 10:23 DS Document 12/18/24 10:17 LISSY [id number] 12/18/24 10:19 LISSY 12/11/24 12/18/24 10:21 10:17 Wound Center Nurse 2 #23 Right Lateral ankle -Time 10:15 10:17 -Correct Patient Yes Yes -Correct Side, Site, Position Yes Yes -Correct Procedure Yes Yes -Procedure Performed Yes Yes -Type of Procedure Debridement Debridement -Clinical Debridement Subcutaneous Subcutaneous -Tissue Removed Subcutaneous Subcutaneous -Post Debridement (cm) - Length 2.0 2.8 -Post Debridement (cm) - Width 2.3 1.8 -Post Debridement (cm) - Depth 0.2 0.2 -Total Square (Post) (cm) 4.60 5.04 -Area of Debridement (cm) - Length 2.0 2.8 -Area of Debridement (cm) - Width 2.3 1.8 -Total Square (Area) (cm) 4.60 5.04 -Tunneling No No -Undermining/Tunneling No No -Circular Undermining No No -Wound/Ulcer Outcome Not Healed Not Healed -Ulcer Cleansing Rinsed/ Rinsed/ Irrigated with Irrigated with Saline Saline -Foul Odor after Cleansing No No -Bioengineered Tissue Yes Yes -Type of Bioengineered Tissue Epifix Mesh Epifix Mesh -Expiration Date 05/10/29 06/10/29 -Product Lot Number [id number] -Percent Used 100 100 -Lot number of Saline Used [id number] -Bleeding Controlled with Pressure Pressure -Treatment Response Procedure Procedure Tolerated Well Tolerated Well -Offloading No -Debridement - Subq, 1st 20sq cm No No -Apply Skin Sub - 1st 25 sq cm - Legs 1 -Apply Skin Sub - 1st 25 sq cm - Feet 1 -Epifix Mesh (per sq cm) 11 11 Pain Scale: 0-10 Numeric Is Patient Pain Free? Yes Yes WC - Nurse 3 - General Ulcer D/C NN Start: 12/11/24 10:06 Freq: Status: Active Protocol: Activity Type Activity Date Activity User E-sign Co-sign Detail Recorded Client Recorded Date Recorded By Document 12/11/24 10:44 RB [id number] 12/11/24 10:48 RB Document 12/14/24 11:11 RB [id number] 12/14/24 11:13 RB Document 12/18/24 10:19 [id number] 12/18/24 10:20 LISSY 12/11/24 12/14/24 12/18/24 10:44 11:11 10:19 Wound Care Center Nurse 3 #23 Right Lateral ankle -Primary Dressing Applied Optilok 8x12, Optilok 6.5x10 Silicone Border Foam 4x4 -Primary Dressing Covered/Secured with Dry Gauze & Roll Gauze, Secured with Tape -Optilok 5x5 1/2 1 -Optilok 6.5x10 1 -Optilok 8x12 1 -Silicone Border Foam 4x4 1 -Wound Comment(s) hydrogel foam mepilex to right posterior lower thigh RLE -Multi-Layered Wrap Application Multi-Layer Multi-Layer Multi-Layer Comp - Right ($ Comp - Right ($ Comp - Right ($ ) ) ) -Multi-Layer Compression Right (Qty 1 1 1 applied) Treatment Response Procedure Procedure Tolerated Well Tolerated Well Pain Scale: 0-10 Numeric Is Patient Pain Free? Yes Yes Yes WC - Visit Discharge Discharge Condition Stable Stable Stable Ambulatory Status Ambulatory Wheelchair Wheelchair Transportation NH transport [place] Private Auto Accompanied by care home Medication Reconcilliation completed & No No provided to patient/care provider Clinical Summary of Care Provided Yes Yes Assessment/Plan Assessment/Plan (1) Non-pressure chronic ulcer of other part of right foot with necrosis of bone: CODE(S): L97.514 - Non-pressure chronic ulcer of other part of right foot with necrosis of bone PLAN: Exam performed. Patient is awaiting AV fistula, this is delayed due to nonhealing ulceration to right lateral ankle. Right lateral ankle slightly improved in size today. Resolved cellulitis right ankle. Right lateral ankle wound was excisionally debrided down to including level of subcutaneous tissue of all nonviable tissue using a 5 mm dermal curette. Hemostasis obtained with light compression. Topical anesthesia used. Patient tolerated procedure well. Pre and postdebridement measurements documented nursing notes. Right ankle radiographs reviewed, no evidence of osteomyelitis Today a 4 x 4.5 cm EpiFix graft was applied to the right lateral ankle. This is 11 billing units. Entire graft used, no waste. This was stabilized with overlying wound veil and Steri-Strips. Additional dressing consisted of a bolstered dry sterile dressing was applied to the right lower extremity. Total contact cast was applied to the right lower extremity with the ankle and foot held in a rectus position relative to the leg. Patient only bears weight to transfer to wheelchair. She will continue this until a contact cast. Patient is a poor surgical candidate due to diabetic neuropathy, end-stage renal disease, noncompliance, poor nutritional status for right lower extremity reconstruction; therefore, upon wound healing plan will be for custom bracing of the right lower extremity due to severe varus deformity with loss of peroneus brevis tendon. If there is prolonged nonhealing or development of acute life/limb threatening infection patient may require below-knee amputation to right lower extremity. Patient is understanding of this. Patient will follow-up on a weekly basis. (2) Type 2 diabetes mellitus with diabetic polyneuropathy: CODE(S): E11.42 - Type 2 diabetes mellitus with diabetic polyneuropathy QUALIFIERS: Diabetes mellitus nursing home insulin use: with waterfront director use Qualified Code(s): E11.42 - Type 2 diabetes mellitus with diabetic polyneuropathy; Z79.4 - halfway (current) use of insulin (3) Varus deformity, not elsewhere classified, right ankle: CODE(S): M21.171 - Varus deformity, not elsewhere classified, right ankle
--- NOTE | 2025-01-02 12:06 | WC ---
PHOTO 01/01/25 RIGHT LATERAL ANKLE
== END 2025-01-07 23:59 | disposition home or self-care (01) ==
LOC: WC 09:30
PROVIDERS: PCP Family Medicine; Referring Provider Podiatrist; Visit Provider Podiatrist
DX: E11.621 Type 2 diabetes mellitus with foot ulcer (principal); N18.6 End stage renal disease; L97.312 Non-pressure chronic ulcer of right ankle with fat layer exposed; E11.22 Type 2 diabetes mellitus with diabetic chronic kidney disease; E11.42 Type 2 diabetes mellitus with diabetic polyneuropathy; Z79.4 Long term (current) use of insulin; M21.171 Varus deformity, not elsewhere classified, right ankle; Z91.199 Patient's noncompliance with other medical treatment and regimen due to unspecified reason; Z79.82 Long term (current) use of aspirin; Z79.890 Hormone replacement therapy; Z79.899 Other long term (current) drug therapy
CPT/HCPCS: 15271; 15275; 29581; Q4186

== ENCOUNTER 2025-01-07 10:59 | Emergency (ER) | payer MEDICARE, MEDICAID, SELFPAY ==
[2018-09-21 13:23] VITALS: BMI 29.3
[2025-01-07 11:04] VITALS: BP 129/95; PULSE 84; RESP 12; TEMP 36.7; O2SAT 96; BMI 24.8
--- NOTE | 2025-01-07 11:20 | EKG12_ITS ---
Test Reason : Blood Pressure : */* mmHG Vent. Rate : 86 BPM Atrial Rate : 86 BPM P-R Int : 170 ms QRS Dur : 100 ms QT Int : 412 ms P-R-T Axes : 57 3 85 degrees QTcB Int : 493 ms Normal sinus rhythm Minimal voltage criteria for LVH, may be normal variant ( Dave product ) Prolonged QT Abnormal ECG Confirmed by OTTO DELVALLE, DOMINIQUE ([id number]), editor producer HARINI PHAM ([id number]) on 01/08/2025 8:37:33 AM Referred By: Shayne Castro Confirmed By: DOMINIQUE MENJIVAR MD
--- NOTE | 2025-01-07 11:20 | CT_ITS ---
PROCEDURE: BRAIN/HEAD WITHOUT CONTRAST 01/07/2025 REASON FOR EXAM: ALTERED LOC TECHNIQUE: Head CT without intravenous contrast. Coronal and Sagittal reconstruction series were provided. One or more dose reduction techniques were used (e.g., Automated exposure control, adjustment of the mA and/or kV according to patient size, use of iterative reconstruction technique. RADIATION DOSE SUMMARY: CTDlvol: 44.99 mGy DLP: 715.19 mGycm COMPARISON: Comparison is made with prior study dated July 16, 2024. 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 Linear calcification seen within the infarction in the posterior right parietal lobe. Stable lacunar infarct in the insular cortex of the right temporal lobe. CSF Spaces: Mild generalized cerebral atrophy Sinuses/Mastoids: Partial opacification of the ethmoid sinuses. CT/Brain/Head without Contrast IMPRESSION: CHRONIC CHANGES. NO ACUTE FINDINGS. Partial opacification of the ethmoid sinuses. [facility]
--- NOTE | 2025-01-07 11:20 | RAD_ITS ---
PROCEDURE: CHEST 1 VIEW (PORTABLE) 01/07/2025 REASON FOR EXAM: DECREASED LOC TECHNIQUE: Frontal view of the chest. COMPARISON: Comparison is made with prior study dated September 13, 2024. FINDINGS: Hardware: Medial left-sided double-lumen catheter is seen with the tip at the junction of the superior vena cava and right atrium. EKG electrodes are seen. Heart: Heart size is mildly enlarged. Lungs: There is evidence of vascular congestion mild degree of CHF. Bones: Prior fusion of the lower thoracic and upper lumbar vertebrae. Other: Osteoarthritis of both shoulder joints. RAD/Chest 1 View (Portable) IMPRESSION: Mild cardiomegaly and mild CHF. Reading Location: [facility]
--- NOTE | 2025-01-07 11:22 | EX.ED.DYSGE1 ---
HPI History of Present Illness Chief Complaint: Alt LOC Informant: patient and EMS Narrative Narrative: 59-year-old dialysis patient apparently was at dialysis getting her session and became lethargic to the point where her staff was not able to wake her up. They called EMS who noticed that she had pinpoint pupils, they gave her Narcan 2 mg, which woke her up and now she states that she feels cold. She denies any other complaints. She states she had nausea and couple episodes of vomiting over the weekend, today being Tuesday, she does not feel like that right now. She feels okay. She states she started methadone 3 times daily for chronic pain in her low back and her legs maybe a week ago and she took it this morning. She has a wrap on her right lower leg because of a chronic wound that is being cared for, she cannot remember how long she is added on. [facility] Medical History ESRD (end stage renal disease) on dialysis History of TIA (transient ischemic attack) History of myocardial infarction Diabetes mellitus type 2 with complications Non-pressure chronic ulcer of ankle with fat layer exposed Type 2 diabetes mellitus with diabetic polyneuropathy Secondary hyperparathyroidism Hypertension Non-pressure chronic ulcer of right ankle with necrosis of muscle Non-pressure chronic 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 layer exposed Non-pressure chronic ulcer of other part of left foot with fat layer exposed Non-pressure chronic ulcer of left ankle with necrosis of muscle Adverse effect of synthetic cannabinoids, initial encounter [place] coma scale score 13-15, at arrival to emergency department Acute alteration in mental status Short Achilles tendon (acquired), left ankle Short Achilles tendon (acquired), right ankle Acquired cavovarus deformity of left foot Acquired cavovarus deformity of right foot Adult failure to thrive Debility Charcot's joint, right ankle and foot Charcot's joint, left ankle and foot Drowsiness Mental status, decreased Carotid artery stenosis MSSA bacteremia ESRD on hemodialysis Osteomyelitis Anemia in chronic illness Type 2 diabetes mellitus Foot osteomyelitis, left Chronic renal disease, stage 4, severely decreased glomerular filtration rate (GFR) between 15-29 mL/min/1.73 square meter Acute on chronic anemia Chronic ulcer of right foot with necrosis of bone Chronic kidney disease, stage 4 (severe) Diabetes mellitus with diabetic polyneuropathy Diabetic foot ulcers Chronic kidney disease, stage 3b Cellulitis Acute lumbar radiculopathy Essential hypertension Adult failure to thrive COVID-19 (08/28/21) Chronic ulcer of right leg with fat layer exposed Ulcer of left foot with fat layer exposed Chronic ulcer of right foot with fat layer exposed Hyperparathyroidism, secondary renal Iron deficiency anemia Bilateral edema of lower extremity Chronic foot pain Charcot's joint of right foot Diabetes Non-smoker Myocardial infarct TIA (transient ischemic attack) Amputation foot, bilat 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 Ulcer of left foot with necrosis of muscle Ulcer of left foot with muscle involvement without evidence of necrosis Anxiety and depression Diabetic infection of left foot Delayed wound healing Non-compliance Diabetic polyneuropathy Ischemic cardiomyopathy Obesity (BMI 30.0-34.9) Acquired varus deformity of left foot Acquired varus deformity of right foot Atherosclerosis of [place] coronary artery of [place] heart without angina pectoris Hemoglobin A1c greater than 9.0% NSTEMI (non-ST elevated myocardial infarction) (09/20/18) GERD (gastroesophageal reflux disease) HLD (hyperlipidemia) Back pain, chronic RLS (restless legs syndrome) Home Medications ?Medication ?Instructions ?Recorded ?Last Taken ?Type paroxetine HCl 20 mg tablet 20 mg PO DAILY DEPRESSION 07/07/21 04/07/22 History sennosides 8.6 mg-docusate sodium 2 tab PO BID PRN PRN Constipation 04/24/22 Unknown Rx 50 mg tablet (Stool #0 tabs Softener-Stimulant Laxative) ascorbic acid (vitamin C) 500 mg 500 mg PO BID supplement 05/05/22 Unknown History tablet (Vitamin C) pantoprazole 40 mg tablet,delayed 40 mg PO BIDCM GERD 07/19/22 Unknown History release calcitriol 0.5 mcg capsule 0.5 mcg PO .COMPLEX on dialysis 12/16/23 07/09/24 History calcium acetate(phosphat bind) 667 676 mg PO TID is on dialysis 12/16/23 Unknown History mg capsule folic acid 800 mcg tablet 0.8 mg PO DAILY supplement 12/16/23 Unknown History levothyroxine 25 mcg tablet 25 mcg PO DAILY thyroid 12/16/23 Unknown History aspirin 81 mg capsule 81 mg PO DAILY blood thinner #30 12/26/23 Unknown Rx caps atorvastatin 40 mg tablet 40 mg PO DAILY cholesterol 03/18/24 06/26/24 History melatonin 3 mg tablet 3 mg PO QHS PRN PRN Insomnia #0 05/21/24 Unknown Rx tabs menthol 0.44 %-zinc oxide 20.6 % 1 applic topical BID skin care #0 05/21/24 Unknown Rx topical ointment (Calmoseptine) grams sucralfate 1 gram tablet 1 g PO TID@0700,1100,1600 05/21/24 Unknown Rx indigestion #0 tabs acetaminophen 325 mg tablet 650 mg PO Q6H PRN fever or pain 07/09/24 Unknown History insulin lispro 100 unit/mL 10 unit subcut TIDAC blood sugar 09/13/24 Unknown History subcutaneous pen (Humalog KwikPen (U-100) Insulin) ipratropium 0.5 mg-albuterol 3 mg 3 ml inhalation Q4H 09/13/24 Unknown History (2.5 mg base)/3 mL nebulization soln L.acidophil,salivari-Bifido 1 cap PO 4X/DAY #0 caps 09/21/24 Unknown Rx bifidum-Strep thermoph 175 mg capsule arginine 7 gram-glutam 7 1 packet PO BIDCM #0 ea 09/21/24 Unknown Rx gram-CaHMB 1.5 vtxk-dzuot-ib-min oral pwd pkt (Ted (with collagen)) lorazepam 0.5 mg tablet 0.5 mg PO Q12H PRN anxiety #6 tabs 09/21/24 Unknown Rx nutrition tx glu 120 ml PO TIDCM #0 mL 09/21/24 Unknown Rx intol,lac-free,soy-fiber 0.06 gram-1.2 kcal/mL liquid (Glucerna 1.2 Howie) oxycodone 5 mg tablet 2.5 mg (1/2 x 5 mg) PO Q8H PRN 09/21/24 Unknown Rx pain 3 days #10 tabs carvedilol 25 mg tablet 12.5 mg PO BID blood pressure 12/06/24 Unknown History ferrous sulfate 325 mg (65 mg 325 mg PO QDAY 12/06/24 Unknown History iron) tablet,delayed release gabapentin 100 mg capsule 100 mg PO TID pain 12/06/24 Unknown History hydralazine 50 mg tablet 50 mg PO TID bp 12/06/24 Unknown History levetiracetam 500 mg tablet 250 mg PO .qod 12/06/24 Unknown History levetiracetam 500 mg tablet 500 mg PO BID 12/06/24 Unknown History ropinirole 0.25 mg tablet 0.25 mg PO QHS 12/06/24 Unknown History Allergy/AdvReac Type Severity Reaction Status Date / Time oxycodone (From OxyContin) Allergy sob Verified 01/07/25 11:04 Penicillins Allergy swelling Verified 01/07/25 11:04 in throat vancomycin Allergy Itching Verified 01/07/25 11:04 metronidazole AdvReac Nausea Verified 01/07/25 11:04 Family History Mother Diabetes CVA (cerebral vascular accident) Brother CAD (coronary artery disease) CABG X 3 Cancer testicular Diabetes Brother CAD (coronary artery disease) CABG X3 Diabetes Brother CAD (coronary artery disease) Stents Diabetes Sister CAD (coronary artery disease) CABG x 3 CVA (cerebral vascular accident) Diabetes Surgical History History of History of foot surgery History of bilateral carpal tunnel release History of rotator cuff surgery History of coronary artery stent placement (12/31/20) Social History household members: none number of children: 2 current occupational status: disabled Smoking Status: Never smoker alcohol intake: never substance use type: does not use caffeine: Yes Type: carbonated beverages Number of servings: 2 ROS ROS ED Constitutional Constitutional ED: Denies chills or fever(s) Eyes Eyes: Denies change in vision or diplopia ENT ENT ED: Denies rhinorrhea or sore throat Cardiovascular Cardiovascular: Denies chest pain or palpitations Respiratory/Chest Respiratory/Chest: Denies cough or dyspnea Gastrointestinal Gastrointestinal: Reports nausea and vomiting; Denies abdominal pain or diarrhea Genitourinary Genitourinary ED: Denies dysuria or hematuria Musculoskeletal Musculoskeletal: Reports as per HPI, back pain and extremity pain; Denies neck pain Integumentary Denies abscess or rash Neurologic Neurologic: Denies headache(s), paresthesias or weakness EXAM Physical Exam Const Vital Signs: 01/07/25 11:04 01/07/25 13:01 Temperature 98.0 F Temperature Source Oral Pulse Rate 84 73 Respiratory Rate 12 10 L Blood Pressure 129/95 H 183/82 H Blood Pressure Mean 106 115 Pulse Ox 96 100 Oxygen Delivery Method Nasal Cannula Room Air Oxygen Flow Rate (L/min) 2 Positive well nourished and well developed Constitutional Narrative: Alerts easily to voice and answers questions appropriately. Frequently yawning. General Appearance ED: well developed and NAD HEENT Reports moist mucous membranes normocephalic and atraumatic Eyes PERRL and EOMs intact bilaterally Eyes Narrative: Pupils around 3 mm bilaterally and reactive. Neck full ROM and supple Chest Wall Chest Narrative: Left upper chest Port-A-Cath site benign Resp normal respiratory effort and clear to auscultation bilaterally Cardio regular rate, regular rhythm and no murmurs GI non-tender and non-distended Auscultation: normoactive bowel sounds Palpation: soft Back/Spine no CVA tenderness General Back: other FROM Extremity normal to inspection Extremity Narrative: Type postoperative wraps to right lower extremity from foot all the way up to the proximal ruiz. Patient does not want me to take them off. No tenderness throughout the area with that they are wrapped on. Intact distal pulses both feet. 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 Urinalysis negative for infection, this was a catheter specimen. Chronic renal failure noted, she states she did most of her dialysis treatment, she is not hyperkalemic. Chest x-ray two-view on my interpretation shows no pneumonia, CT head on my interpretation shows no acute hemorrhage, radiology in agreement of both of these. No sign of an acute cardiac injury on her EKG. She was observed for a total of about 4 hours. 1 point she started complaining to the nurse that her elbow hurt, I evaluated her, she was in tears and alert, she had some tenderness with normal inspection at the proximal ulna just distal to the olecranon process, hurt to move her elbow but she was able to fully, we treated with an ice pack topically and later I rechecked it and she said it was feeling better and she was moving it fine. She maintained good level of alertness throughout, did not require any more Narcan from us. I do think this might have been related to the methadone that she was taking in addition to maybe an empty stomach, needing dialysis, etc. I would recommend skipping her afternoon dose today at least, and possibly having the rest of her doses until she follows up. She is comfortable with that plan Lab Data Attestation: I reviewed the patient's lab results. Labs: Laboratory Results - last 24 hr 01/07/25 01/07/25 11:55 13:01 WBC 5.5 RBC 3.90 L Hgb 11.5 L Hct 36.9 L MCV 94.6 MCH 29.5 MCHC 31.2 L RDW Std Deviation 55.9 H RDW Coeff of Fior 16.4 H Plt Count 262 MPV 10.1 Immature Gran % (Auto) 1.300 H Neut % (Auto) 73.6 H Lymph % (Auto) 12.1 L [place] % (Auto) 8.8 Eos % (Auto) 3.7 Baso % (Auto) 0.5 Absolute Neuts (auto) 4.0 Absolute Lymphs (auto) 0.66 L Nucleated RBC % 0 Sodium 139 Potassium 4.3 Chloride 99 Carbon Dioxide 25.2 Anion Gap 15 BUN 27 H Creatinine 3.58 H Estim Creat Clear Calc 15.84 L Est GFR (MDRD) Non-Af 14 L BUN/Creatinine Ratio 7.5 L Glucose 97 Calcium 9.5 Urine Color Straw Urine Clarity Clear Urine pH 8.0 Ur Specific Rugby 1.010 Urine Protein 500 H Urine Glucose (UA) 50 H Urine Ketones Negative Urine Occult Blood 25 H Urine Nitrite Negative Urine Bilirubin Negative Urine Urobilinogen Normal Ur Leukocyte Esterase Negative Urine RBC 0-5 SEEN Urine WBC 0-5 SEEN Ur Squamous Epith Cells 0-5 SEEN Urine Bacteria 0 SEEN Urine Mucus 0 SEEN Radiography Diagnostic Testing: Clinical Impression(s) from Imaging Studies Brain CT 01/07/25 11:20 IMPRESSION: CHRONIC CHANGES. NO ACUTE FINDINGS. Partial opacification of the ethmoid sinuses. Reading Location: [place] [address] Chest X-Ray 01/07/25 11:20 IMPRESSION: Mild cardiomegaly and mild CHF. Reading Location: [place] [address] Rhythm Strip Rhythm Strip: Sinus Rhythm Rate: 85 Ectopy: None EKG Initial EKG: Attestation: I personally reviewed and interpreted this EKG as follows: Interpretation: Sinus Rhythm and No Acute Injury Pattern Comments: QT is a little on the long side, otherwise intervals are unremarkable. 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 Instructions: ED Overdose, Opiate Prescriptions: No Action paroxetine HCl 20 mg tablet 20 mg PO DAILY Patient Comments: TAKE 1 TABLET BY MOUTH EVERY DAY IN THE EVENING sennosides-docusate sodium [Stool Softener-Stimulant Laxat] 8.6-50 mg Tablet 2 tab PO BID PRN PRN (Reason: Constipation) Qty: 0 0RF ascorbic acid (vitamin C) [Vitamin C] 500 mg Tablet 500 mg PO BID pantoprazole 40 mg tablet,delayed release (DR/EC) 40 mg PO BIDCM atorvastatin 40 mg tablet 40 mg PO DAILY melatonin 3 mg Tablet 3 mg PO QHS PRN PRN (Reason: Insomnia) Qty: 0 0RF menthol-zinc oxide [Calmoseptine] 0.44-20.6 % Ointment 1 applic topical BID Qty: 0 0RF Protocol: *Topical Application Instructions APPLICATION INSTRUCTIONS: BUTTOCKS sucralfate 1 gram Tablet 1 g PO TID@0700,1100,1600 Qty: 0 0RF acetaminophen 325 mg Tablet 650 mg PO Q6H PRN (Reason: fever or pain) ipratropium-albuterol 0.5 mg-3 mg(2.5 mg base)/3 mL solution for nebulization 3 ml inhalation Q4H insulin lispro [Humalog KwikPen Insulin] 100 unit/mL Insulin Pen 10 unit subcut TIDAC Protocol: 4. Sliding Scale Insulin High-Med Dosing Condition: 150-199 mg/dl = 2 units Condition: 200-259 mg/dl = 4 units Condition: 260-324 mg/dl = 6 units Condition: 325-374 mg/dl = 8 units Condition: 375-409 mg/dl = 10 units Condition: 410-449 mg/dl = 11 units Condition: Greater than 449 call physician Protocol Text: Suggested for: - Patients on Total Daily Insulin Dose of 56-80 units - Patient who are known to be insulin resistant or septic HIGH MEDIUM DOSING ALGORITHM Aries,saliva-Alfredo-S.therm 175 mg Capsule 1 cap PO 4X/DAY Qty: 0 0RF Glucerna 1.2 Howie 0.06-1.2 gram-kcal/mL Liquid 120 ml PO TIDCM Qty: 0 0RF Ted (with collagen) 7-7-1.5 gram Powder In Packet 1 packet PO BIDCM Qty: 0 0RF lorazepam 0.5 mg Tablet 0.5 mg PO Q12H PRN (Reason: anxiety) Qty: 6 0RF oxycodone 5 mg tablet 2.5 mg PO Q8H PRN (Reason: pain) 3 Days Qty: 10 0RF calcium acetate(phosphat bind) 667 mg capsule 676 mg PO TID Patient Comments: TAKE 1 CAPSULE BY MOUTH THREE TIMES A DAY WITH FOOD folic acid 800 mcg tablet 0.8 mg PO DAILY Patient Comments: TAKE 1 TABLET BY MOUTH EVERY DAY levothyroxine 25 mcg tablet 25 mcg PO DAILY Patient Comments: TAKE 1 TABLET BY MOUTH EVERY DAY BEFORE BREAKFAST calcitriol 0.5 mcg capsule 0.5 mcg PO .COMPLEX Rx Instructions: 0.5 mcg orally three times a week; aspirin 81 mg capsule 81 mg PO DAILY Qty: 30 1RF Primary Care Provider: Raúl Eric Referrals: Raúl Eric MD [Primary Care Provider] - As soon as possible Activity Restrictions/Additional Instructions: If you are currently taking methadone 3 times daily, do not take your second dose today, and for the foreseeable future until you follow-up with your doctor, cut your future methadone doses all in half. Print Language: [place] Disposition Disposition: Home, Self Care
[2025-01-07 12:02] LABS: Absolute Lymphocyte Count 0.66 X10^3/uL (0.83-4.51); Basophil# 0.03 X10^3/uL; Basophil% 0.5 % (0-1); Eosinophils% 3.7 % (0-5); Hematocrit 36.9 % (37-47); Hemoglobin 11.5 g/dL (12.0-15.0); Lymphocyte # 0.66 X10^3/ul (0.83-4.51); Lymphocyte % 12.1 % (19-41); Mean Corp Hgb Conc 31.2 g/dL (32-36); Mean Corpuscular Hgb 29.5 pg (27.0-32.0); Mean Corpuscular Volume 94.6 fL (81-99); Mean Platelet Vol. 10.1 fl (6.2-12.0); Monocyte# 0.48 X10^3/uL; Monocyte% 8.8 % (0-10); NRBC Flagged by Analyzer 0 % (0-5); Neutrophil # 4.02 X10^3/uL (2.7-7.7); Neutrophil % 73.6 % (47-70); Platelet Count 262 K/mm3 (150-450); RBC Distribution Width CV 16.4 % (11.6-14.6); RBC Distribution Width SD 55.9 fl (35.1-43.9); White Blood Count 5.5 K/mm3 (4.4-11.0)
[2025-01-07 12:22] LABS: Anion Gap 15 (5-15); BUN 27 mg/dL (4-19); BUN/Creat Ratio 7.5 RATIO (10-20); Calcium,Total 9.5 mg/dL (7.6-11.0); Carbon Dioxide 25.2 mmol/L (21.0-32.0); Chloride 99 mmol/L (98-108); Creatinine, Serum 3.58 mg/dL (0.70-1.20); EST Glomerular Filtration Rate 14 (>60); Estimated Creatinine Clearance 15.84 ml/min (50-250); Glucose 97 mg/dL (70-99); Potassium 4.3 mmol/L (3.3-5.1); Sodium Level 139 mmol/L (133-145)
[2025-01-07 13:01] VITALS: BP 183/82; PULSE 73; RESP 10; O2SAT 100
[2025-01-07 13:06] LABS: Bacteria 0 SEEN /hpf (None Seen); Mucous, Urine 0 SEEN /hpf (<or=2+)
[2025-01-07 13:12] LABS: Color, Urine Straw (Yellow); Glucose, Dipstick 50 mg/dl (Normal); Ketone-Dipstick Negative (Negative); Leukocyte Esterase-Dipstick Negative /ul (Negative); Nitrite-Dipstick Negative (Negative); Occult Blood-Urine 25 /ul (Negative); Protein-Dipstick 500 mg/dl (Negative); Urine Bilirubin Dipstick Negative (Negative); Urine Clarity Clear (Clear); Urine Urobilinogen Normal (Normal)
[2025-01-07 13:30] LABS: Red Blood Cells-Urine 0-5 SEEN /hpf (0-5); Squamous Epithelial Cells - UA 0-5 SEEN /hpf (5-10); White Blood Cells 0-5 SEEN /hpf (0-5)
[2025-01-07 15:18] VITALS: BP 183/82; PULSE 73; RESP 10; TEMP 36.7; O2SAT 100
== END 2025-01-07 16:30 | disposition home or self-care (01) ==
PROVIDERS: Emergency Provider Emergency Medicine; PCP Family Medicine; Referring Provider Emergency Medicine; Visit Provider Emergency Medicine
DX: T40.3X1A Poisoning by methadone, accidental (unintentional), initial encounter (principal); I13.2 Hypertensive heart and chronic kidney disease with heart failure and with stage 5 chronic kidney disease, or end stage renal disease; N18.6 End stage renal disease; E11.22 Type 2 diabetes mellitus with diabetic chronic kidney disease; E11.42 Type 2 diabetes mellitus with diabetic polyneuropathy; Z79.4 Long term (current) use of insulin; R53.83 Other fatigue; M79.604 Pain in right leg; M79.605 Pain in left leg; I25.5 Ischemic cardiomyopathy; I25.10 Atherosclerotic heart disease of native coronary artery without angina pectoris; G89.29 Other chronic pain; E78.5 Hyperlipidemia, unspecified; I25.2 Old myocardial infarction; Z99.2 Dependence on renal dialysis; Z79.82 Long term (current) use of aspirin; Z79.890 Hormone replacement therapy; Z79.899 Other long term (current) drug therapy; Z86.73 Personal history of transient ischemic attack (TIA), and cerebral infarction without residual deficits
CPT/HCPCS: 70450; 71045; 80048; 81001; 85025; 93005; 99285; P9612; A4216

== ENCOUNTER 2025-01-15 09:30 | Outpatient (RCR) | payer MEDICARE, MEDICAID, SELFPAY ==
[2018-09-21 13:23] VITALS: BMI 29.3
[2025-01-08 00:19] VITALS: BP 168/85; PULSE 73; RESP 16; TEMP 36.2
[2025-01-08 09:48] VITALS: BP 158/61; PULSE 65; RESP 15; TEMP 36.6
--- NOTE | 2025-01-08 10:25 | PCM.WC.PN ---
History of Present Illness Date of Service: 01/08/25 Chief Complaint: right foot ulcer left foot ulcer History of Wound: 59-year-old female with end-stage renal disease, poorly controlled type 2 diabetes history of bilateral nonhealing ulcerations requiring amputation presents for chronic right foot ulceration in setting of varus deformity and peripheral neuropathy. Patient denies constitutional symptoms. Patient notes some increased swelling today due to dressing bunching up. Patient denies pain to wound site. Patient has no other complaints. Objective Data Objective Data Vital Signs: Vital Signs Temp Pulse Resp BP 97.8 F 65 15 158/61 H 01/08/25 09:48 01/08/25 09:48 01/08/25 09:48 01/08/25 09:48 Physical Exam Narrative Vascular: Dorsalis pedis posterior tibial pulses palpable 2 out of 4 to bilateral lower extremity compartments. Neurologic: Absent light touch protective sensation to bilateral lower extremity extending into proximal leg Dermatologic: Residual lateral ankle ulceration noted to the right ankle. This wound is down to level of subcutaneous tissue there is no evidence of deep probing or undermining. There is some fibrous tissue noted predebridement, postdebridement the wound demonstrates clean granular base. There is mild periwound erythema edema noted today. Pre and postdebridement measurements documented nursing notes. Musculoskeletal: Cavovarus deformity right lower extremity. Rectus alignment of left ankle and foot. Const alert and oriented x3 Debridement Note Debridement Note Post-Debridement Measurements and Additional Note: Post-Debridement Measurements/Treatment - Nurse 1 - General Ulcer Assessment Start: 01/08/25 09:48 Freq: Status: Active Protocol: [email or web address].[email or web address] Activity Type Activity Date Activity User E-sign Co-sign Detail Recorded Client Recorded Date Recorded By Document 01/08/25 09:48 KW [id number] 01/08/25 09:56 KW 01/08/25 09:48 - Today's Visit Information Type of service Follow-up Visit (Physician/BRAKE HOLDER ) Arrival Mode Wheelchair Transfer Assistance None Patient Identification Verified (Name & Yes ) Patient Requires Transmission-Based No Precautions Vital Signs Temperature (97.8 F-99.1 F) 97.8 F Temperature Source Temporal Pulse Rate (60-100) 65 Pulse Location Monitor Respiratory Rate (12-18) 15 Respiratory rate source Observation Blood Pressure (90/60-120/80) 158/61 H Blood Pressure Mean (mm Hg) 93 Source Monitor Position Sitting Blood Pressure Location Right Arm History Since Last Visit- (Skip if this is Patient's initial visit) Have you changed medications since your No last visit? Any new allergies or adverse reactions No Had a fall/change in ADL's that may No increase risk of falls Signs or symptoms of abuse and/or No neglect since last visit Have you been in the hospital since your No last visit? Has dressing in place as prescribed Yes Has compression in place as prescribed Yes Has offloadiing in place as prescribed N/A Experienced any changes in pain level or No management Pain Scale: 0-10 Numeric Is Patient Pain Free? Yes WC - Nurse 1 - General Ulcer Measurement Start: 01/08/25 09:48 Freq: Status: Active Protocol: Activity Type Activity Date Activity User E-sign Co-sign Detail Recorded Client Recorded Date Recorded By Document 01/08/25 09:48 KW [id number] 01/08/25 09:56 KW 01/08/25 09:48 Wound Center Nurse 1 #23 Right Lateral ankle -Current Size (cm) - Length 2.5 -Current Size (cm) - Width 1.5 -Current Size (cm) - Depth 0.2 -Total Square Cm 3.75 -Epithelialization Medium 34-66% -Exudate Amt Medium -Exudate Type Serosanguineous -Wound Margin Distinct, Outline Attached -Granulation Amt Medium (34-66%) -Granulation Quality Hyper- granulation -Slough/Fibrin Yes -Necrosis Amt Medium (34-66%) -Necrotic Tissue Type Adherent Slough -Texture (Natacha-wound Skin Appearance) Assessed -Moisture (Natacha-wound Skin Appearance) Assessed -Color (Natacha-wound Skin Appearance) Assessed -Temperature (Natacha-wound Skin No Abnormality Appearance) (Pt Warm) -Tenderness on Palpation (Natacha-wound No Skin Appearance) -Ulcer Cleansing Soap and Water -Foul Odor after Cleansing No -Anesthetic Used 5% Lidocaine Gel WC - Nurse 2 - General Ulcer CM Notes Start: 01/08/25 09:48 Freq: Status: Active Protocol: Activity Type Activity Date Activity User E-sign Co-sign Detail Recorded Client Recorded Date Recorded By Document 01/08/25 10:19 DS [id number] 01/08/25 10:22 DS 01/08/25 10:19 Wound Center Nurse 2 -Time 10:19 -Correct Patient Yes -Correct Side, Site, Position Yes -Correct Procedure Yes -Procedure Performed Yes -Type of Procedure Debridement -Clinical Debridement Subcutaneous -Tissue Removed Subcutaneous -Post Debridement (cm) - Length 1.7 -Post Debridement (cm) - Width 2.5 -Post Debridement (cm) - Depth 0.1 -Total Square (Post) (cm) 4.25 -Area of Debridement (cm) - Length 1.7 -Area of Debridement (cm) - Width 2.5 -Total Square (Area) (cm) 4.25 -Tunneling No -Undermining/Tunneling No -Circular Undermining No -Wound/Ulcer Outcome Not Healed -Ulcer Cleansing Rinsed/ Irrigated with Saline -Foul Odor after Cleansing No -Bioengineered Tissue Yes -Type of Bioengineered Tissue Epifix Mesh -Expiration Date 06/10/29 -Product Lot Number [id number] -Percent Used 100 -Lot number of Saline Used [id number] -Bleeding Controlled with Pressure -Treatment Response Procedure Tolerated Well -Debridement - Subq, 1st 20sq cm No -Apply Skin Sub - 1st 25 sq cm - Legs 1 -Epifix Mesh (per sq cm) 11 Pain Scale: 0-10 Numeric Is Patient Pain Free? Yes Assessment/Plan Assessment/Plan (1) Non-pressure chronic ulcer of other part of right foot with necrosis of bone: CODE(S): L97.514 - Non-pressure chronic ulcer of other part of right foot with necrosis of bone PLAN: Exam performed. Patient is awaiting AV fistula, this is delayed due to nonhealing ulceration to right lateral ankle. Right lateral ankle slightly improved in size today. Resolved cellulitis right ankle. Right lateral ankle wound was excisionally debrided down to including level of subcutaneous tissue of all nonviable tissue using a 5 mm dermal curette. Hemostasis obtained with light compression. Topical anesthesia used. Patient tolerated procedure well. Pre and postdebridement measurements documented nursing notes. Right ankle radiographs reviewed, no evidence of osteomyelitis Today a 4 x 4.5 cm EpiFix graft was applied to the right lateral ankle. This is 11 billing units. Entire graft used, no waste. This was stabilized with overlying wound veil and Steri-Strips. Additional dressing consisted of a bolstered dry sterile dressing was applied to the right lower extremity. Total contact cast was applied to the right lower extremity with the ankle and foot held in a rectus position relative to the leg. Patient only bears weight to transfer to wheelchair. She will continue this until a contact cast. Patient is a poor surgical candidate due to diabetic neuropathy, end-stage renal disease, noncompliance, poor nutritional status for right lower extremity reconstruction; therefore, upon wound healing plan will be for custom bracing of the right lower extremity due to severe varus deformity with loss of peroneus brevis tendon. If there is prolonged nonhealing or development of acute life/limb threatening infection patient may require below-knee amputation to right lower extremity. Patient is understanding of this. Patient will follow-up on a weekly basis. (2) Type 2 diabetes mellitus with diabetic polyneuropathy: CODE(S): E11.42 - Type 2 diabetes mellitus with diabetic polyneuropathy QUALIFIERS: Diabetes mellitus [facility] insulin use: with bed bug exterminator use Qualified Code(s): E11.42 - Type 2 diabetes mellitus with diabetic polyneuropathy; Z79.4 - terminal makeup operator (current) use of insulin (3) Varus deformity, not elsewhere classified, right ankle: CODE(S): M21.171 - Varus deformity, not elsewhere classified, right ankle
--- NOTE | 2025-01-09 12:04 | WC ---
PHOTO RIGHT LATERAL ANKLE 01/08/25
[2025-01-15 09:37] VITALS: BP 147/66; PULSE 67; RESP 18; TEMP 36.4
--- NOTE | 2025-01-15 10:19 | PN.PCM_ITS ---
History of Present Illness Date of Service: 01/15/25 Chief Complaint: right foot ulcer left foot ulcer History of Wound: 59-year-old female with end-stage renal disease, poorly controlled type 2 diabetes history of bilateral nonhealing ulcerations requiring amputation presents for chronic right foot ulceration in setting of varus deformity and peripheral neuropathy. Patient denies constitutional symptoms. Patient notes some increased swelling today due to dressing bunching up. Patient denies pain to wound site. Patient has no other complaints. Objective Data Objective Data Vital Signs: Vital Signs Temp Pulse Resp BP O2 Del Method 97.6 F L 67 18 147/66 H Room Air 01/15/25 09:37 01/15/25 09:37 01/15/25 09:37 01/15/25 09:37 01/15/25 09:37 Oxygen Delivery Method Room Air Physical Exam Narrative Vascular: Dorsalis pedis posterior tibial pulses palpable 2 out of 4 to bilateral lower extremity compartments. Neurologic: Absent light touch protective sensation to bilateral lower extremity extending into proximal leg Dermatologic: Residual lateral ankle ulceration noted to the right ankle. This wound is down to level of subcutaneous tissue there is no evidence of deep probing or undermining. There is some fibrous tissue noted predebridement, postdebridement the wound demonstrates clean granular base. There is mild periwound erythema edema noted today. Pre and postdebridement measurements documented nursing notes. Musculoskeletal: Cavovarus deformity right lower extremity. Rectus alignment of left ankle and foot. Const alert and oriented x3 Debridement Note Debridement Note Post-Debridement Measurements and Additional Note: Post-Debridement Measurements/Treatment - Nurse 1 - General Ulcer Assessment Start: 01/08/25 09:48 Freq: Status: Active Protocol: TENNILLE.LOWEXNory Activity Type Activity Date Activity User E-sign Co-sign Detail Recorded Client Recorded Date Recorded By Document 01/08/25 09:48 KW [id number] 01/08/25 09:56 KW Document 01/15/25 09:37 DS [id number] 01/15/25 09:39 DS 01/08/25 01/15/25 09:48 09:37 - Today's Visit Information Type of service Follow-up Visit Follow-up Visit (Physician/MARINE BIOLOGIST (Physician/MARINE BIOLOGIST ) ) Arrival Mode Wheelchair Wheelchair Transfer Assistance None Patient Identification Verified (Name & Yes Yes ) Patient Requires Transmission-Based No No Precautions Safety Precautions Fall Prevention Vital Signs Temperature (97.8 F-99.1 F) 97.8 F 97.6 F L Temperature Source Temporal Temporal Pulse Rate (60-100) 65 67 Pulse Location Monitor Monitor Respiratory Rate (12-18) 15 18 Respiratory rate source Observation Observation Oxygen Delivery Method Room Air Blood Pressure (90/60-120/80) 158/61 H 147/66 H Blood Pressure Mean (mm Hg) 93 93 Source Monitor Monitor Position Sitting Sitting Blood Pressure Location Right Arm Left Arm History Since Last Visit- (Skip if this is Patient's initial visit) Have you changed medications since your No No last visit? Any new allergies or adverse reactions No No Had a fall/change in ADL's that may No No increase risk of falls Signs or symptoms of abuse and/or No No neglect since last visit Have you been in the hospital since your No No last visit? Has dressing in place as prescribed Yes Yes Has compression in place as prescribed Yes Yes Has offloadiing in place as prescribed N/A Yes Experienced any changes in pain level or No No management Left Footwear No Footwear Right Footwear No Footwear Pain Scale: 0-10 Numeric Is Patient Pain Free? Yes Yes WC - Nurse 1 - General Ulcer Measurement Start: 01/08/25 09:48 Freq: Status: Active Protocol: Activity Type Activity Date Activity User E-sign Co-sign Detail Recorded Client Recorded Date Recorded By Document 01/08/25 09:48 KW [id number] 01/08/25 09:56 KW Document 01/15/25 09:39 DS [id number] 01/15/25 09:47 DS 01/08/25 01/15/25 09:48 09:39 Wound Center Nurse 1 #23 Right Lateral ankle -Current Size (cm) - Length 2.5 2.4 -Current Size (cm) - Width 1.5 1.4 -Current Size (cm) - Depth 0.2 0.2 -Total Square Cm 3.75 3.36 -Photo Taken No -Epithelialization Medium 34-66% -Tunneling No -Undermining/Tunneling No -Circular Undermining No -Exudate Amt Medium Medium -Exudate Type Serosanguineous Serosanguineous -Wound Margin Distinct, Distinct, Outline Outline Attached Attached -Granulation Amt Medium (34-66%) Large (67-100%) -Granulation Quality Hyper- [place]rey granulation -Slough/Fibrin Yes Yes -Necrosis Amt Medium (34-66%) Small (1-33%) -Necrotic Tissue Type Adherent Slough Adherent Slough -Texture (Natacha-wound Skin Appearance) Assessed Assessed -Moisture (Natacha-wound Skin Appearance) Assessed Assessed -Color (Natacha-wound Skin Appearance) Assessed Assessed -Temperature (Natacha-wound Skin No Abnormality No Abnormality Appearance) (Pt Warm) (Pt Warm) -Tenderness on Palpation (Natacha-wound No No Skin Appearance) -Ulcer Cleansing Soap and Water Soap and Water -Foul Odor after Cleansing No No -Anesthetic Used 5% Lidocaine 5% Lidocaine Gel Gel WC - Nurse 2 - General Ulcer CM Notes Start: 01/08/25 09:48 Freq: Status: Active Protocol: Activity Type Activity Date Activity User E-sign Co-sign Detail Recorded Client Recorded Date Recorded By Document 01/08/25 10:19 DS [id number] 01/08/25 10:22 DS Document 01/15/25 10:03 JF [id number] 01/15/25 10:07 JF 01/08/25 01/15/25 10:19 10:03 Wound Center Nurse 2 #23 Right Lateral ankle -Time 10:19 10:05 -Correct Patient Yes Yes -Correct Side, Site, Position Yes Yes -Correct Procedure Yes Yes -Procedure Performed Yes Yes -Type of Procedure Debridement Debridement -Clinical Debridement Subcutaneous Subcutaneous -Tissue Removed Subcutaneous Subcutaneous -Post Debridement (cm) - Length 1.7 2.5 -Post Debridement (cm) - Width 2.5 0.9 -Post Debridement (cm) - Depth 0.1 0.1 -Total Square (Post) (cm) 4.25 2.25 -Area of Debridement (cm) - Length 1.7 2.5 -Area of Debridement (cm) - Width 2.5 0.9 -Total Square (Area) (cm) 4.25 2.25 -Tunneling No No -Undermining/Tunneling No No -Circular Undermining No No -Wound/Ulcer Outcome Not Healed Not Healed -Ulcer Cleansing Rinsed/ Rinsed/ Irrigated with Irrigated with Saline Saline -Foul Odor after Cleansing No No -Bioengineered Tissue Yes Yes -Type of Bioengineered Tissue Epifix Mesh Epifix -Expiration Date 06/10/29 08/10/29 -Product Lot Number [id number] -Percent Used 100 100 -Lot number of Saline Used [id number] -Bleeding Controlled with Pressure Pressure -Treatment Response Procedure Procedure Tolerated Well Tolerated Well -Offloading No -Debridement - Subq, 1st 20sq cm No No -Apply Skin Sub - 1st 25 sq cm - Legs 1 1 -Epifix (per sq cm) 4 -Epifix Mesh (per sq cm) 11 Pain Scale: 0-10 Numeric Is Patient Pain Free? Yes Yes - Nurse 3 - General Ulcer D/C NN Start: 01/08/25 09:48 Freq: Status: Active Protocol: Activity Type Activity Date Activity User E-sign Co-sign Detail Recorded Client Recorded Date Recorded By Document 01/08/25 13:08 KW [id number] 01/08/25 13:09 KW Edit Result 01/08/25 13:08 KW (1) [id number] 01/08/25 13:10 KW (1) #23 Right Lateral ankle - Primary Dressing Applied Optilok 6.5x10, => Optilok 6.5x10 Silvercel => - Silvercel 1 => 0 01/08/25 13:08 Wound Care Center Nurse 3 #23 Right Lateral ankle -Ulcer Cleansing Rinsed/ Irrigated with Saline -Primary Dressing Applied Optilok 6.5x10 -Primary Dressing Covered/Secured with Dry Gauze & Roll Gauze, Secured with Tape -Optilok 6.5x10 1 -Silvercel 0 RLE -Multi-Layered Wrap Application Multi-Layer Comp - Right ($ ) -Multi-Layer Compression Right (Qty 1 applied) Pain Scale: 0-10 Numeric Is Patient Pain Free? Yes WC - Visit Discharge Discharge Condition Stable Ambulatory Status Wheelchair Medication Reconcilliation completed & No provided to patient/care provider Clinical Summary of Care Provided Yes Assessment/Plan Assessment/Plan (1) Non-pressure chronic ulcer of other part of right foot with necrosis of bone: CODE(S): L97.514 - Non-pressure chronic ulcer of other part of right foot with necrosis of bone PLAN: Exam performed. Patient is awaiting AV fistula, this is delayed due to nonhealing ulceration to right lateral ankle. Right lateral ankle slightly improved in size today. Resolved cellulitis right ankle. Right lateral ankle wound was excisionally debrided down to including level of subcutaneous tissue of all nonviable tissue using a 5 mm dermal curette. Hemostasis obtained with light compression. Topical anesthesia used. Patient tolerated procedure well. Pre and postdebridement measurements documented nursing notes. Right ankle radiographs reviewed, no evidence of osteomyelitis Today a 4 x 4.5 cm EpiFix graft was applied to the right lateral ankle. This is 11 billing units. Entire graft used, no waste. This was stabilized with overlying wound veil and Steri-Strips. Additional dressing consisted of a bolstered dry sterile dressing was applied to the right lower extremity. Total contact cast was applied to the right lower extremity with the ankle and foot held in a rectus position relative to the leg. Patient only bears weight to transfer to wheelchair. She will continue this until a contact cast. Patient is a poor surgical candidate due to diabetic neuropathy, end-stage renal disease, noncompliance, poor nutritional status for right lower extremity reconstruction; therefore, upon wound healing plan will be for custom bracing of the right lower extremity due to severe varus deformity with loss of peroneus brevis tendon. If there is prolonged nonhealing or development of acute life/limb threatening infection patient may require below-knee amputation to right lower extremity. Patient is understanding of this. Patient will follow-up on a weekly basis. (2) Type 2 diabetes mellitus with diabetic polyneuropathy: CODE(S): E11.42 - Type 2 diabetes mellitus with diabetic polyneuropathy QUALIFIERS: Diabetes mellitus regional intermodal truck driver insulin use: with regional intermodal truck driver use Qualified Code(s): E11.42 - Type 2 diabetes mellitus with diabetic polyneuropathy; Z79.4 - alf (current) use of insulin (3) Varus deformity, not elsewhere classified, right ankle: CODE(S): M21.171 - Varus deformity, not elsewhere classified, right ankle
== END 2025-02-06 23:59 | disposition home or self-care (01) ==
LOC: WC 09:30
PROVIDERS: PCP Family Medicine; Referring Provider Podiatrist; Visit Provider Podiatrist
DX: E11.622 Type 2 diabetes mellitus with other skin ulcer (principal); N18.6 End stage renal disease; L97.312 Non-pressure chronic ulcer of right ankle with fat layer exposed; E11.22 Type 2 diabetes mellitus with diabetic chronic kidney disease; E11.42 Type 2 diabetes mellitus with diabetic polyneuropathy; Z79.4 Long term (current) use of insulin; M21.171 Varus deformity, not elsewhere classified, right ankle; Z79.82 Long term (current) use of aspirin; Z79.899 Other long term (current) drug therapy
CPT/HCPCS: 15271; 29581; Q4186

== ENCOUNTER → 2025-01-25 | Outpatient (CLI) | payer MEDICARE, MEDICAID, SELFPAY ==
[2018-09-21 13:23] VITALS: BMI 29.3
--- NOTE | 2025-01-25 14:04 | VDUE_ITS ---
Reason For Study Reason For Study: Pre op planning Right Arm Left Arm Cephalic Vein at distal forearm measures 0.13 x 0.15 HX Failed Brachiocephalic AVF. cm. Proximal Basilic vein measures 0.33 x 0.32 cm. Cephalic Vein at mid forearm measures 0.13 x 0.13 cm. Mid Basilic vein measures 0.34 x 0.33 cm. Cephalic Vein proximal forearm measures 0.18 x 0.17 Distal Basilic vein measures 0.31 x 0.29 cm. cm. Brachial artery measures 0.45 x 0.43 cm with a [place] V is partailly compressible at prox forearm. velocity of 93.2 cm/sec. Cephalic Vein distal upper arm measures 0.13 x 0.14 cm. Cephalic Vein at mid upper arm measures 0.17 x 0.18 cm. Cephalic Vein at proximal upper arm measures 0.19 x 0.19 cm. Proximal Basilic vein measures 0.14 x 0.14 cm. Mid Basilic vein measures 0.14 x 0.16 cm. Distal Basilic vein measures 0.13 x 0.16 cm. Basilic V is partially compressible Brachial artery measures 0.42 x 0.41 cm with a velocity of 101.8 cm/sec. Radial artery measures 0.19 x 0.19 cm with a velocity of 63.8 cm/sec. Procedure This was a bilateral upper extremity venous doppler examination. Exam performed in department. VL/Dialysis Vein Map PRE-OP BILAT Interpretation Summary Bilateral upper extremity arteries patent with normal waveforms and measurement s above. Bilateral upper extremity veins patent with measurements above. Left forearm vessels not assessed. Ordering Physician: Ella Sandhu Referring Physician: MD Jeaneth Raúl Performed By: Erika Tubbs RVT ???
== END | disposition home or self-care (01) ==
PROVIDERS: PCP Family Medicine; Referring Provider Physician Assistant; Visit Provider Physician Assistant
DX: Z01.818 Encounter for other preprocedural examination (principal); N18.6 End stage renal disease; Z99.2 Dependence on renal dialysis
CPT/HCPCS: 93985

== ENCOUNTER 2025-02-01 18:28 | Outpatient (CLI) | payer MEDICARE, MEDICAID, SELFPAY ==
[2018-09-21 13:23] VITALS: BMI 29.3
[2025-02-01 19:21] LABS: Absolute Lymphocyte Count 1.05 X10^3/uL (0.83-4.51); Absolute Neutrophil Count 5.4 X10^3/uL (2.0-7.7); Basophil# 0.06 X10^3/uL; Basophil% 0.8 % (0-1); Eosinophil# 0.23 X10^3/uL; Eosinophils% 3.1 % (0-5); Hematocrit 43.6 % (37-47); Hemoglobin 13.6 g/dL (12.0-15.0); Lymphocyte # 1.05 X10^3/ul (0.83-4.51); Mean Corp Hgb Conc 31.2 g/dL (32-36); Mean Corpuscular Hgb 29.8 pg (27.0-32.0); Mean Corpuscular Volume 95.4 fL (81-99); Mean Platelet Vol. 11.3 fl (6.2-12.0); Monocyte# 0.69 X10^3/uL; Monocyte% 9.2 % (0-10); NRBC Flagged by Analyzer 0 % (0-5); Neutrophil # 5.41 X10^3/uL (2.7-7.7); Neutrophil % 72.2 % (47-70); Platelet Count 240 K/mm3 (150-450); RBC Distribution Width CV 16.7 % (11.6-14.6); RBC Distribution Width SD 57.2 fl (35.1-43.9); Red Blood Count 4.57 M/mm3 (4.2-5.4); White Blood Count 7.5 K/mm3 (4.4-11.0)
[2025-02-01 20:37] LABS: BUN 26 mg/dL (4-19)
[2025-02-01 21:16] LABS: BUN 70 mg/dL (4-19); Potassium 5.9 mmol/L (3.3-5.1)
== END 2025-02-01 23:59 | disposition home or self-care (01) ==
LOC: LABSPEC 18:28
PROVIDERS: PCP Family Medicine; Visit Provider Internal Medicine Nephrology
DX: N18.6 End stage renal disease (principal)
CPT/HCPCS: 84132; 84520; 85025

== ENCOUNTER 2025-02-26 09:45 | Outpatient (RCR) | payer MEDICARE, MEDICAID, SELFPAY ==
[2018-09-21 13:23] VITALS: BMI 29.3
[2025-02-07 00:09] VITALS: BP 147/66; PULSE 67; RESP 18; TEMP 36.4
[2025-02-12 10:08] VITALS: BP 179/99; PULSE 75; RESP 18; TEMP 35.8
--- NOTE | 2025-02-12 10:35 | PN.PCM_ITS ---
History of Present Illness Date of Service: 02/12/25 Chief Complaint: right foot ulcer left foot ulcer History of Wound: 59-year-old female with end-stage renal disease, poorly controlled type 2 diabetes history of bilateral nonhealing ulcerations requiring amputation presents for chronic right foot ulceration in setting of varus deformity and peripheral neuropathy. Patient denies constitutional symptoms. Patient notes some increased swelling today due to dressing bunching up. Patient denies pain to wound site. Patient has no other complaints. Objective Data Objective Data Vital Signs: Vital Signs Temp Pulse Resp BP O2 Del Method 96.5 F L 75 18 179/99 H Room Air 02/12/25 10:08 02/12/25 10:08 02/12/25 10:08 02/12/25 10:08 02/12/25 10:08 Oxygen Delivery Method Room Air Physical Exam Narrative Vascular: Dorsalis pedis posterior tibial pulses palpable 2 out of 4 to bilateral lower extremity compartments. Neurologic: Absent light touch protective sensation to bilateral lower extremity extending into proximal leg Dermatologic: Residual lateral ankle ulceration noted to the right ankle. This wound is down to level of subcutaneous tissue there is no evidence of deep probing or undermining. There is some fibrous tissue noted predebridement, postdebridement the wound demonstrates clean granular base. There is mild periwound erythema edema noted today. Pre and postdebridement measurements documented nursing notes. Musculoskeletal: Cavovarus deformity right lower extremity. Rectus alignment of left ankle and foot. Const alert and oriented x3 Debridement Note Debridement Note Post-Debridement Measurements and Additional Note: Post-Debridement Measurements/Treatment - Nurse 1 - General Ulcer Assessment Start: 02/12/25 10:08 Freq: Status: Active Protocol: LINDYEXNory Activity Type Activity Date Activity User E-sign Co-sign Detail Recorded Client Recorded Date Recorded By Document 02/12/25 10:08 AGUS [id number] 02/12/25 10:13 KW 02/12/25 10:08 - Today's Visit Information Type of service Follow-up Visit (Physician/CAB STARTER ) Arrival Mode Wheelchair Patient Identification Verified (Name & Yes ) Vital Signs Temperature (97.8 F-99.1 F) 96.5 F L Temperature Source Temporal Pulse Rate (60-100) 75 Pulse Location Monitor Respiratory Rate (12-18) 18 Respiratory rate source Observation Oxygen Delivery Method Room Air Blood Pressure (90/60-120/80) 179/99 H Blood Pressure Mean (mm Hg) 125 Source Monitor Position Semi-Fowlers Blood Pressure Location Right Arm History Since Last Visit- (Skip if this is Patient's initial visit) Have you changed medications since your No last visit? Any new allergies or adverse reactions No Had a fall/change in ADL's that may No increase risk of falls Signs or symptoms of abuse and/or No neglect since last visit Have you been in the hospital since your No last visit? Has dressing in place as prescribed Yes Has compression in place as prescribed No Has offloadiing in place as prescribed No Experienced any changes in pain level or No management Left Footwear No Footwear Right Footwear No Footwear Pain Scale: 0-10 Numeric Is Patient Pain Free? Yes WC - Nurse 1 - General Ulcer Measurement Start: 02/12/25 10:08 Freq: Status: Active Protocol: Activity Type Activity Date Activity User E-sign Co-sign Detail Recorded Client Recorded Date Recorded By Document 02/12/25 10:08 AGUS [id number] 02/12/25 10:13 AGUS 02/12/25 10:08 Wound Center Nurse 1 #23 Right Lateral ankle -Current Size (cm) - Length 3 -Current Size (cm) - Width 1 -Current Size (cm) - Depth 0.1 -Total Square Cm 3 -Date of Last Picture (Recall this 02/12/25 field) -Exudate Amt Small -Exudate Type Serosanguineous -Wound Margin Distinct, Outline Attached -Granulation Amt Large (67-100%) -Granulation Quality [place],Red -Necrosis Amt Medium (34-66%) -Necrotic Tissue Type Adherent Slough -Texture (Natacha-wound Skin Appearance) Assessed -Moisture (Natacha-wound Skin Appearance) Assessed -Color (Natacha-wound Skin Appearance) Assessed -Temperature (Natacha-wound Skin No Abnormality Appearance) (Pt Warm) -Tenderness on Palpation (Natacha-wound No Skin Appearance) -Ulcer Cleansing Rinsed/ Irrigated with Saline -Foul Odor after Cleansing No -Anesthetic Used 5% Lidocaine Gel TENNILLE - Nurse 2 - General Ulcer CM Notes Start: 02/12/25 10:08 Freq: Status: Active Protocol: Activity Type Activity Date Activity User E-sign Co-sign Detail Recorded Client Recorded Date Recorded By Document 02/12/25 10:22 LISSY [id number] 02/12/25 10:23 LISSY 02/12/25 10:22 Wound Center Nurse 2 -Time 10:22 -Correct Patient Yes -Correct Side, Site, Position Yes -Correct Procedure Yes -Procedure Performed Yes -Type of Procedure Debridement -Clinical Debridement Subcutaneous -Tissue Removed Subcutaneous -Post Debridement (cm) - Length 1.0 -Post Debridement (cm) - Width 2.5 -Post Debridement (cm) - Depth 0.1 -Total Square (Post) (cm) 2.50 -Area of Debridement (cm) - Length 1.0 -Area of Debridement (cm) - Width 2.5 -Total Square (Area) (cm) 2.50 -Tunneling No -Undermining/Tunneling No -Circular Undermining No -Wound/Ulcer Outcome Not Healed -Ulcer Cleansing Rinsed/ Irrigated with Saline -Foul Odor after Cleansing No -Bioengineered Tissue No -Bleeding Controlled with Pressure -Treatment Response Procedure Tolerated Well -Offloading No -Assistive Device(s) Wheelchair -Debridement - Subq, 1st 20sq cm Yes Pain Scale: 0-10 Numeric Is Patient Pain Free? Yes Assessment/Plan Assessment/Plan (1) Non-pressure chronic ulcer of other part of right foot with necrosis of bone: CODE(S): L97.514 - Non-pressure chronic ulcer of other part of right foot with necrosis of bone PLAN: Exam performed. Patient is awaiting AV fistula, this is delayed due to nonhealing ulceration to right lateral ankle. Right lateral ankle slightly improved in size today. Resolved cellulitis right ankle. Right lateral ankle wound was excisionally debrided down to including level of subcutaneous tissue of all nonviable tissue using a 5 mm dermal curette. Hemostasis obtained with light compression. Topical anesthesia used. Patient tolerated procedure well. Pre and postdebridement measurements documented nursing notes. Dressed with silver alginate 3m compression dressing, patient will follow-up in 1 week no dressing changes during that time. Patient is a poor surgical candidate due to diabetic neuropathy, end-stage renal disease, noncompliance, poor nutritional status for right lower extremity reconstruction; therefore, upon wound healing plan will be for custom bracing of the right lower extremity due to severe varus deformity with loss of peroneus brevis tendon. If there is prolonged nonhealing or development of acute life/limb threatening infection patient may require below-knee amputation to right lower extremity. Patient is understanding of this. Today I discussed long-term bracing via [place] boot versus Charcot reconstruction versus below-knee amputation right lower extremity. Since patient has poor wound healing potential patient is poor candidate for TTC fusion. Will plan for [place] boot upon wound healing. Next if that were to fail patient will require below-knee amputation. Patient will follow-up on a weekly basis. (2) Type 2 diabetes mellitus with diabetic polyneuropathy: CODE(S): E11.42 - Type 2 diabetes mellitus with diabetic polyneuropathy QUALIFIERS: Diabetes mellitus nursing home insulin use: with nursing home use Qualified Code(s): E11.42 - Type 2 diabetes mellitus with diabetic polyneuropathy; Z79.4 - intermodal dispatcher (current) use of insulin (3) Varus deformity, not elsewhere classified, right ankle: CODE(S): M21.171 - Varus deformity, not elsewhere classified, right ankle
--- NOTE | 2025-02-14 10:25 | WC ---
PHOTO 02/12/25 RIGHT LATERAL ANKLE
[2025-02-19 10:29] VITALS: BP 169/91; PULSE 72; RESP 18; TEMP 36.2
--- NOTE | 2025-02-19 10:48 | PCM.WC.PN ---
History of Present Illness Date of Service: 02/19/25 Chief Complaint: right foot ulcer left foot ulcer History of Wound: 59-year-old female with end-stage renal disease, poorly controlled type 2 diabetes history of bilateral nonhealing ulcerations requiring amputation presents for chronic right foot ulceration in setting of varus deformity and peripheral neuropathy. Patient denies constitutional symptoms. Patient notes some increased swelling today due to dressing bunching up. Patient denies pain to wound site. Patient has no other complaints. Objective Data Objective Data Vital Signs: Vital Signs Temp Pulse Resp BP O2 Del Method 97.1 F L 72 18 169/91 H Room Air 02/19/25 10:29 02/19/25 10:29 02/19/25 10:29 02/19/25 10:02/12/25 10:08 Oxygen Delivery Method Room Air Physical Exam Narrative Vascular: Dorsalis pedis posterior tibial pulses palpable 2 out of 4 to bilateral lower extremity compartments. Neurologic: Absent light touch protective sensation to bilateral lower extremity extending into proximal leg Dermatologic: Residual lateral ankle ulceration noted to the right ankle. This wound is down to level of subcutaneous tissue there is no evidence of deep probing or undermining. There is some fibrous tissue noted predebridement, postdebridement the wound demonstrates clean granular base. There is mild periwound erythema edema noted today. Pre and postdebridement measurements documented nursing notes. Musculoskeletal: Cavovarus deformity right lower extremity. Rectus alignment of left ankle and foot. Const alert and oriented x3 Debridement Note Debridement Note Post-Debridement Measurements and Additional Note: Post-Debridement Measurements/Treatment - Nurse 1 - General Ulcer Assessment Start: 02/12/25 10:08 Freq: Status: Active Protocol: [email or web address].HARMONY Activity Type Activity Date Activity User E-sign Co-sign Detail Recorded Client Recorded Date Recorded By Document 02/12/25 10:08 KW [id number] 02/12/25 10:13 KW Document 02/19/25 10:29 RB [id number] 02/19/25 10:31 RB 02/12/25 02/19/25 10:08 10:29 WC - Today's Visit Information Type of service Follow-up Visit Follow-up Visit (Physician/DELIVERY RN (Physician/DELIVERY RN ) ) Arrival Mode Wheelchair Wheelchair Transfer Assistance Manual Patient Identification Verified (Name & Yes Yes ) Patient Requires Transmission-Based No Precautions Vital Signs Temperature (97.8 F-99.1 F) 96.5 F L 97.1 F L Temperature Source Temporal Temporal Pulse Rate (60-100) 75 72 Pulse Location Monitor Monitor Respiratory Rate (12-18) 18 18 Respiratory rate source Observation Observation Oxygen Delivery Method Room Air Blood Pressure (90/60-120/80) 179/99 H 169/91 H Blood Pressure Mean (mm Hg) 125 117 Source Monitor Monitor Position Semi-Fowlers Semi-Fowlers Blood Pressure Location Right Arm Left Arm History Since Last Visit- (Skip if this is Patient's initial visit) Have you changed medications since your No No last visit? Any new allergies or adverse reactions No No Had a fall/change in ADL's that may No No increase risk of falls Signs or symptoms of abuse and/or No No neglect since last visit Have you been in the hospital since your No No last visit? Has dressing in place as prescribed Yes Yes Has compression in place as prescribed No Yes Has offloadiing in place as prescribed No N/A Experienced any changes in pain level or No No management Left Footwear No Footwear No Footwear Right Footwear No Footwear No Footwear Pain Scale: 0-10 Numeric Is Patient Pain Free? Yes No rle -Description Aching -Intensity 8 -Duration (hours) Acute -Pain Behavior Guarding, Irritability, Rubbing Site -Pain Aggravating Factors Exercise/ Activity, Debridement -Alleviating Factors/Interventions Medication -Effectiveness of Alleviating Factor/ Minimally Intervention effective WC - Nurse 1 - General Ulcer Measurement Start: 02/12/25 10:08 Freq: Status: Active Protocol: Activity Type Activity Date Activity User E-sign Co-sign Detail Recorded Client Recorded Date Recorded By Document 02/12/25 10:08 KW [id number] 02/12/25 10:13 KW Document 02/19/25 10:29 RB [id number] 02/19/25 10:31 RB 02/12/25 02/19/25 10:08 10:29 Wound Center Nurse 1 #23 Right Lateral ankle -Combined with other wound No -Current Size (cm) - Length 3 4 -Current Size (cm) - Width 1 1.2 -Current Size (cm) - Depth 0.1 0.1 -Total Square Cm 3 4.8 -Date of Last Picture (Recall this 02/12/25 field) -Photo Taken Yes -Tunneling No -Undermining/Tunneling No -Circular Undermining No -Exudate Amt Small Medium -Exudate Type Serosanguineous Serosanguineous -Wound Margin Distinct, Distinct, Outline Outline Attached Attached -Granulation Amt Large (67-100%) Medium (34-66%) -Granulation Quality [place],Red [place] -Slough/Fibrin Yes -Necrosis Amt Medium (34-66%) Small (1-33%) -Necrotic Tissue Type Adherent Slough Adherent Slough -Structure Exposed N/A -Texture (Natacha-wound Skin Appearance) Assessed Assessed, Scarring -Moisture (Natacha-wound Skin Appearance) Assessed Maceration -Color (Natacha-wound Skin Appearance) Assessed Assessed -Temperature (Natacha-wound Skin No Abnormality No Abnormality Appearance) (Pt Warm) (Pt Warm) -Tenderness on Palpation (Natacha-wound No No Skin Appearance) -Ulcer Cleansing Rinsed/ Wound Cleanser Irrigated with Saline -Foul Odor after Cleansing No No -Anesthetic Used 5% Lidocaine 5% Lidocaine Gel Gel Lower Limb Edema Present Yes Right Calf (cm) 28.5 Right Ankle (cm) 19.8 WC - Nurse 2 - General Ulcer CM Notes Start: 02/12/25 10:08 Freq: Status: Active Protocol: Activity Type Activity Date Activity User E-sign Co-sign Detail Recorded Client Recorded Date Recorded By Document 02/12/25 10:22 [id number] 02/12/25 10:23 Document 02/19/25 10:34 [id number] 02/19/25 10:37 02/12/25 02/19/25 10:22 10:34 Wound Center Nurse 2 #23 Right Lateral ankle -Time 10:22 10:35 -Correct Patient Yes Yes -Correct Side, Site, Position Yes Yes -Correct Procedure Yes Yes -Procedure Performed Yes Yes -Type of Procedure Debridement Debridement -Clinical Debridement Subcutaneous Subcutaneous -Tissue Removed Subcutaneous Subcutaneous -Post Debridement (cm) - Length 1.0 2.5 -Post Debridement (cm) - Width 2.5 0.8 -Post Debridement (cm) - Depth 0.1 0.2 -Total Square (Post) (cm) 2.50 2.00 -Area of Debridement (cm) - Length 1.0 2.5 -Area of Debridement (cm) - Width 2.5 0.8 -Total Square (Area) (cm) 2.50 2.00 -Tunneling No No -Undermining/Tunneling No No -Circular Undermining No No -Wound/Ulcer Outcome Not Healed Not Healed -Ulcer Cleansing Rinsed/ Rinsed/ Irrigated with Irrigated with Saline Saline -Foul Odor after Cleansing No No -Bioengineered Tissue No No -Bleeding Controlled with Pressure Pressure -Treatment Response Procedure Procedure Tolerated Well Tolerated Well -Offloading No No -Assistive Device(s) Wheelchair -Debridement - Subq, 1st 20sq cm Yes Yes Pain Scale: 0-10 Numeric Is Patient Pain Free? Yes Yes - Nurse 3 - General Ulcer D/C NN Start: 02/12/25 10:08 Freq: Status: Active Protocol: Activity Type Activity Date Activity User E-sign Co-sign Detail Recorded Client Recorded Date Recorded By Document 02/12/25 10:39 RB [id number] 02/12/25 10:40 RB Document 02/19/25 10:38 JF [id number] 02/19/25 10:40 02/12/25 02/19/25 10:39 10:38 Wound Care Center Nurse 3 #23 Right Lateral ankle -Ulcer Cleansing Rinsed/ Rinsed/ Irrigated with Irrigated with Saline Saline -Foul Odor after Cleansing No -Primary Dressing Applied Silvercel Aquacel AG 2x2 -Primary Dressing Covered/Secured with Dry Gauze & Dry Gauze Roll Gauze, Secured with Tape -Aquacel AG 2x2 1 -Silvercel 1 RLE -Lotion applied to leg before Yes compression wrap -Multi-Layered Wrap Application Multi-Layer Multi-Layer Comp - Right ($ Comp - Right ($ ) ) -Multi-Layer Compression Right (Qty 1 1 applied) Treatment Response Procedure Tolerated Well Pain Scale: 0-10 Numeric Is Patient Pain Free? Yes Yes - Visit Discharge Discharge Condition Stable Stable Ambulatory Status Wheelchair Ambulatory, Wheelchair Transportation [facility] Auto Medication Reconcilliation completed & No Yes provided to patient/care provider Clinical Summary of Care Provided Yes Yes Assessment/Plan Assessment/Plan (1) Non-pressure chronic ulcer of other part of right foot with necrosis of bone: CODE(S): L97.514 - Non-pressure chronic ulcer of other part of right foot with necrosis of bone PLAN: Exam performed. Patient is awaiting AV fistula, this is delayed due to nonhealing ulceration to right lateral ankle. [place] boot ordered for right today Right lateral ankle slightly improved in size today. Resolved cellulitis right ankle. Right lateral ankle wound was excisionally debrided down to including level of subcutaneous tissue of all nonviable tissue using a 5 mm dermal curette. Hemostasis obtained with light compression. Topical anesthesia used. Patient tolerated procedure well. Pre and postdebridement measurements documented nursing notes. Dressed with silver alginate 3m compression dressing, patient will follow-up in 1 week no dressing changes during that time. Patient is a poor surgical candidate due to diabetic neuropathy, end-stage renal disease, noncompliance, poor nutritional status for right lower extremity reconstruction; therefore, upon wound healing plan will be for custom bracing of the right lower extremity due to severe varus deformity with loss of peroneus brevis tendon. If there is prolonged nonhealing or development of acute life/limb threatening infection patient may require below-knee amputation to right lower extremity. Patient is understanding of this. Today I discussed long-term bracing via Cherokee boot versus Charcot reconstruction versus below-knee amputation right lower extremity. Since patient has poor wound healing potential patient is poor candidate for TTC fusion. Will plan for Cherokee boot upon wound healing. Next if that were to fail patient will require below-knee amputation. Patient will follow-up on a weekly basis. (2) Type 2 diabetes mellitus with diabetic polyneuropathy: CODE(S): E11.42 - Type 2 diabetes mellitus with diabetic polyneuropathy QUALIFIERS: Diabetes mellitus long-term insulin use: with intermediate project manager use Qualified Code(s): E11.42 - Type 2 diabetes mellitus with diabetic polyneuropathy; Z79.4 - assisted (current) use of insulin (3) Varus deformity, not elsewhere classified, right ankle: CODE(S): M21.171 - Varus deformity, not elsewhere classified, right ankle
--- NOTE | 2025-02-20 09:45 | WC ---
PHOTO 02/19/25 RIGHT LATERAL ANKLE
[2025-02-26 09:48] VITALS: BP 127/69; PULSE 66; RESP 16; TEMP 36.6
--- NOTE | 2025-02-26 10:37 | PCM.WC.PN ---
History of Present Illness Date of Service: 02/26/25 Chief Complaint: right foot ulcer left foot ulcer History of Wound: 59-year-old female with end-stage renal disease, poorly controlled type 2 diabetes history of bilateral nonhealing ulcerations requiring amputation presents for chronic right foot ulceration in setting of varus deformity and peripheral neuropathy. Patient denies constitutional symptoms. Patient notes some increased swelling today due to dressing bunching up. Patient denies pain to wound site. Patient has no other complaints. Objective Data Objective Data Vital Signs: Vital Signs Temp Pulse Resp BP O2 Del Method 97.8 F 66 16 127/69 H Room Air 02/26/25 09:48 02/26/25 09:48 02/26/25 09:48 02/26/25 09:48 02/26/25 09:48 Oxygen Delivery Method Room Air Physical Exam Narrative Vascular: Dorsalis pedis posterior tibial pulses palpable 2 out of 4 to bilateral lower extremity compartments. Neurologic: Absent light touch protective sensation to bilateral lower extremity extending into proximal leg Dermatologic: Residual lateral ankle ulceration noted to the right ankle. This wound is down to level of subcutaneous tissue there is no evidence of deep probing or undermining. There is some fibrous tissue noted predebridement, postdebridement the wound demonstrates clean granular base. There is mild periwound erythema edema noted today. Pre and postdebridement measurements documented nursing notes. Musculoskeletal: Cavovarus deformity right lower extremity. Rectus alignment of left ankle and foot. Const alert and oriented x3 Debridement Note Debridement Note Post-Debridement Measurements and Additional Note: Post-Debridement Measurements/Treatment - Nurse 1 - General Ulcer Assessment Start: 02/12/25 10:08 Freq: Status: Active Protocol: SHANICE Activity Type Activity Date Activity User E-sign Co-sign Detail Recorded Client Recorded Date Recorded By Document 02/12/25 10:08 KW [id number] 02/12/25 10:13 KW Document 02/19/25 10:29 RB [id number] 02/19/25 10:31 RB Document 02/26/25 09:48 KW [id number] 02/26/25 09:58 KW 02/12/25 02/19/25 02/26/25 10:08 10:29 09:48 - Today's Visit Information Type of service Follow-up Visit Follow-up Visit Follow-up Visit (Physician/ADMINISTRATIVE SUPPORT MANAGER (Physician/ADMINISTRATIVE SUPPORT MANAGER (Physician/ADMINISTRATIVE SUPPORT MANAGER ) ) ) Arrival Mode Wheelchair Wheelchair Wheelchair Transfer Assistance Manual Patient Identification Verified (Name & Yes Yes Yes ) Patient Requires Transmission-Based No Precautions Vital Signs Temperature (97.8 F-99.1 F) 96.5 F L 97.1 F L 97.8 F Temperature Source Temporal Temporal Temporal Pulse Rate (60-100) 75 72 66 Pulse Location Monitor Monitor Monitor Respiratory Rate (12-18) 18 18 16 Respiratory rate source Observation Observation Observation Oxygen Delivery Method Room Air Room Air Blood Pressure (90/60-120/80) 179/99 H 169/91 H 127/69 H Blood Pressure Mean (mm Hg) 125 117 88 Source Monitor Monitor Monitor Position Semi-Fowlers Semi-Fowlers Semi-Fowlers Blood Pressure Location Right Arm Left Arm Left Arm History Since Last Visit- (Skip if this is Patient's initial visit) Have you changed medications since your No No No last visit? Any new allergies or adverse reactions No No No Had a fall/change in ADL's that may No No No increase risk of falls Signs or symptoms of abuse and/or No No No neglect since last visit Have you been in the hospital since your No No No last visit? Has dressing in place as prescribed Yes Yes Yes Has compression in place as prescribed No Yes Yes Has offloadiing in place as prescribed No N/A N/A Experienced any changes in pain level or No No No management Left Footwear No Footwear No Footwear No Footwear Right Footwear No Footwear No Footwear No Footwear Pain Scale: 0-10 Numeric Is Patient Pain Free? Yes No Yes rle -Description Aching -Intensity 8 -Duration (hours) Acute -Pain Behavior Guarding, Irritability, Rubbing Site -Pain Aggravating Factors Exercise/ Activity, Debridement -Alleviating Factors/Interventions Medication -Effectiveness of Alleviating Factor/ Minimally Intervention effective WC - Nurse 1 - General Ulcer Measurement Start: 02/12/25 10:08 Freq: Status: Active Protocol: Activity Type Activity Date Activity User E-sign Co-sign Detail Recorded Client Recorded Date Recorded By Document 02/12/25 10:08 KW [id number] 02/12/25 10:13 KW Document 02/19/25 10:29 RB [id number] 02/19/25 10:31 RB Document 02/26/25 09:48 KW [id number] 02/26/25 09:58 KW 02/12/25 02/19/25 02/26/25 10:08 10:29 09:48 Wound Center Nurse 1 #23 Right Lateral ankle -Combined with other wound No -Current Size (cm) - Length 3 4 3 -Current Size (cm) - Width 1 1.2 1 -Current Size (cm) - Depth 0.1 0.1 0.1 -Total Square Cm 3 4.8 3 -Date of Last Picture (Recall this 02/12/25 02/26/25 field) -Photo Taken Yes -Tunneling No -Undermining/Tunneling No -Circular Undermining No -Exudate Amt Small Medium -Exudate Type Serosanguineous Serosanguineous -Wound Margin Distinct, Distinct, Distinct, Outline Outline Outline Attached Attached Attached -Granulation Amt Large (67-100%) Medium (34-66%) Large (67-100%) -Granulation Quality [place],Red [place],Red -Slough/Fibrin Yes -Necrosis Amt Medium (34-66%) Small (1-33%) Small (1-33%) -Necrotic Tissue Type Adherent Slough Adherent Slough Adherent Slough -Structure Exposed N/A -Texture (Natacha-wound Skin Appearance) Assessed Assessed, Assessed Scarring -Moisture (Natacha-wound Skin Appearance) Assessed Maceration Assessed -Color (Natacha-wound Skin Appearance) Assessed Assessed Assessed -Temperature (Natacha-wound Skin No Abnormality No Abnormality No Abnormality Appearance) (Pt Warm) (Pt Warm) (Pt Warm) -Tenderness on Palpation (Natacha-wound No No No Skin Appearance) -Ulcer Cleansing Rinsed/ Wound Cleanser Soap and Water Irrigated with Saline -Foul Odor after Cleansing No No No -Anesthetic Used 5% Lidocaine 5% Lidocaine 5% Lidocaine Gel Gel Gel Lower Limb Edema Present Yes Right Calf (cm) 28.5 Right Ankle (cm) 19.8 WC - Nurse 2 - General Ulcer CM Notes Start: 02/12/25 10:08 Freq: Status: Active Protocol: Activity Type Activity Date Activity User E-sign Co-sign Detail Recorded Client Recorded Date Recorded By Document 02/12/25 10:22 [id number] 02/12/25 10:23 Document 02/19/25 10:34 [id number] 02/19/25 10:37 JF Document 02/26/25 10:02 JF [id number] 02/26/25 10:04 JF 02/12/25 02/19/25 02/26/25 10:22 10:34 10:02 Wound Center Nurse 2 #23 Right Lateral ankle -Time 10:22 10:35 10:02 -Correct Patient Yes Yes Yes -Correct Side, Site, Position Yes Yes Yes -Correct Procedure Yes Yes Yes -Procedure Performed Yes Yes Yes -Type of Procedure Debridement Debridement Debridement -Clinical Debridement Subcutaneous Subcutaneous Subcutaneous -Tissue Removed Subcutaneous Subcutaneous Subcutaneous -Post Debridement (cm) - Length 1.0 2.5 1.5 -Post Debridement (cm) - Width 2.5 0.8 0.8 -Post Debridement (cm) - Depth 0.1 0.2 0.1 -Total Square (Post) (cm) 2.50 2.00 1.20 -Area of Debridement (cm) - Length 1.0 2.5 1.5 -Area of Debridement (cm) - Width 2.5 0.8 0.8 -Total Square (Area) (cm) 2.50 2.00 1.20 -Tunneling No No No -Undermining/Tunneling No No No -Circular Undermining No No No -Wound/Ulcer Outcome Not Healed Not Healed Not Healed -Ulcer Cleansing Rinsed/ Rinsed/ Rinsed/ Irrigated with Irrigated with Irrigated with Saline Saline Saline -Foul Odor after Cleansing No No No -Bioengineered Tissue No No No -Bleeding Controlled with Pressure Pressure Pressure -Treatment Response Procedure Procedure Procedure Tolerated Well Tolerated Well Tolerated Well -Offloading No No No -Assistive Device(s) Wheelchair -Debridement - Subq, 1st 20sq cm Yes Yes Yes Pain Scale: 0-10 Numeric Is Patient Pain Free? Yes Yes Yes - Nurse 3 - General Ulcer D/C NN Start: 02/12/25 10:08 Freq: Status: Active Protocol: Activity Type Activity Date Activity User E-sign Co-sign Detail Recorded Client Recorded Date Recorded By Document 02/12/25 10:39 RB [id number] 02/12/25 10:40 RB Document 02/19/25 10:38 JF [id number] 02/19/25 10:40 JF Document 02/26/25 10:21 RB [id number] 02/26/25 10:22 RB 02/12/25 02/19/25 02/26/25 10:39 10:38 10:21 Wound Care Center Nurse 3 #23 Right Lateral ankle -Ulcer Cleansing Rinsed/ Rinsed/ Rinsed/ Irrigated with Irrigated with Irrigated with Saline Saline Saline -Foul Odor after Cleansing No -Primary Dressing Applied Silvercel Aquacel AG 2x2 Aquacel AG 2x2 -Primary Dressing Covered/Secured with Dry Gauze & Dry Gauze Roll Gauze, Secured with Tape -Aquacel AG 2x2 1 1 -Silvercel 1 RLE -Lotion applied to leg before Yes Yes compression wrap -Multi-Layered Wrap Application Multi-Layer Multi-Layer Multi-Layer Comp - Right ($ Comp - Right ($ Comp - Right ($ ) ) ) -Multi-Layer Compression Right (Qty 1 1 1 applied) Treatment Response Procedure Procedure Tolerated Well Tolerated Well Pain Scale: 0-10 Numeric Is Patient Pain Free? Yes Yes Yes WC - Visit Discharge Discharge Condition Stable Stable Stable Ambulatory Status Wheelchair Ambulatory, Wheelchair Wheelchair Transportation [facility] Auto OR transport Medication Reconcilliation completed & No Yes No provided to patient/care provider Clinical Summary of Care Provided Yes Yes Yes Assessment/Plan Assessment/Plan (1) Non-pressure chronic ulcer of other part of right foot with necrosis of bone: CODE(S): L97.514 - Non-pressure chronic ulcer of other part of right foot with necrosis of bone PLAN: Exam performed. Patient is awaiting AV fistula, this is delayed due to nonhealing ulceration to right lateral ankle. [place]in[place] boot ordered for right today Right lateral ankle slightly improved in size today. Resolved cellulitis right ankle. Right lateral ankle wound was excisionally debrided down to including level of subcutaneous tissue of all nonviable tissue using a 5 mm dermal curette. Hemostasis obtained with light compression. Topical anesthesia used. Patient tolerated procedure well. Pre and postdebridement measurements documented nursing notes. Dressed with silver alginate 3m compression dressing, patient will follow-up in 1 week no dressing changes during that time. Patient is a poor surgical candidate due to diabetic neuropathy, end-stage renal disease, noncompliance, poor nutritional status for right lower extremity reconstruction; therefore, upon wound healing plan will be for custom bracing of the right lower extremity due to severe varus deformity with loss of peroneus brevis tendon. If there is prolonged nonhealing or development of acute life/limb threatening infection patient may require below-knee amputation to right lower extremity. Patient is understanding of this. Today I discussed long-term bracing via [place] boot versus Charcot reconstruction versus below-knee amputation right lower extremity. Since patient has poor wound healing potential patient is poor candidate for TTC fusion. Will plan for [place]in[place] boot upon wound healing. Next if that were to fail patient will require below-knee amputation. Patient will follow-up on a weekly basis. (2) Type 2 diabetes mellitus with diabetic polyneuropathy: CODE(S): E11.42 - Type 2 diabetes mellitus with diabetic polyneuropathy QUALIFIERS: Diabetes mellitus retirement insulin use: with retirement use Qualified Code(s): E11.42 - Type 2 diabetes mellitus with diabetic polyneuropathy; Z79.4 - remote computer terminal operator (current) use of insulin (3) Varus deformity, not elsewhere classified, right ankle: CODE(S): M21.171 - Varus deformity, not elsewhere classified, right ankle
--- NOTE | 2025-02-26 13:07 | WC ---
R LAT ANKLE 02/26/25
== END 2025-03-09 23:59 | disposition home or self-care (01) ==
LOC: WC 09:45
PROVIDERS: PCP Family Medicine; Referring Provider Podiatrist; Visit Provider Podiatrist
DX: E11.621 Type 2 diabetes mellitus with foot ulcer (principal); N18.6 End stage renal disease; L97.312 Non-pressure chronic ulcer of right ankle with fat layer exposed; E11.22 Type 2 diabetes mellitus with diabetic chronic kidney disease; E11.42 Type 2 diabetes mellitus with diabetic polyneuropathy; Z79.4 Long term (current) use of insulin; M21.171 Varus deformity, not elsewhere classified, right ankle; Z79.82 Long term (current) use of aspirin; Z79.890 Hormone replacement therapy; Z79.899 Other long term (current) drug therapy
CPT/HCPCS: 11042; 29581

== ENCOUNTER 2025-02-27 08:22 | Emergency (ER) | payer MEDICARE, MEDICAID, SELFPAY ==
[2018-09-21 13:23] VITALS: BMI 29.3
[2025-02-27 08:24] VITALS: BP 174/85; PULSE 67; RESP 14; TEMP 36.8; O2SAT 94; BMI 25.9
--- NOTE | 2025-02-27 08:37 | EX.ED.DYSGE1 ---
HPI History of Present Illness Chief Complaint: Alt LOC Narrative Narrative: 59-year-old female presents from dialysis via EMS with altered mental status. She states that she has had itching for over a week. At the halfway facility they are giving her medication for this. She states that she received a medication for itching at the halfway facility that had began with a 'V'. She was also on Suboxone. She was an hour into dialysis, and they thought maybe she was having an allergic reaction because she was complaining of itching. She received Benadryl. They noticed that she was fatigued and mildly confused as well. Patient denies any headache or other symptoms. It was learned that she had taken Suboxone and received Vistaril prior to dialysis. She denies any other complaints except for feeling itchy and a rash on her hand and right upper extremity that she has had. [facility] Medical History ESRD (end stage renal disease) on dialysis History of TIA (transient ischemic attack) History of myocardial infarction Diabetes mellitus type 2 with complications Non-pressure chronic ulcer of ankle with fat layer exposed Type 2 diabetes mellitus with diabetic polyneuropathy Secondary hyperparathyroidism Hypertension Non-pressure chronic ulcer of right ankle with necrosis of muscle Non-pressure chronic 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 layer exposed Non-pressure chronic ulcer of other part of left foot with fat layer exposed Non-pressure chronic ulcer of left ankle with necrosis of muscle Adverse effect of synthetic cannabinoids, initial encounter Avery coma scale score 13-15, at arrival to emergency department Acute alteration in mental status Short Achilles tendon (acquired), left ankle Short Achilles tendon (acquired), right ankle Acquired cavovarus deformity of left foot Acquired cavovarus deformity of right foot Adult failure to thrive Debility Charcot's joint, right ankle and foot Charcot's joint, left ankle and foot Drowsiness Mental status, decreased Carotid artery stenosis MSSA bacteremia ESRD on hemodialysis Osteomyelitis Anemia in chronic illness Type 2 diabetes mellitus Foot osteomyelitis, left Chronic renal disease, stage 4, severely decreased glomerular filtration rate (GFR) between 15-29 mL/min/1.73 square meter Acute on chronic anemia Chronic ulcer of right foot with necrosis of bone Chronic kidney disease, stage 4 (severe) Diabetes mellitus with diabetic polyneuropathy Diabetic foot ulcers Chronic kidney disease, stage 3b Cellulitis Acute lumbar radiculopathy Essential hypertension Adult failure to thrive COVID-19 (08/28/21) Chronic ulcer of right leg with fat layer exposed Ulcer of left foot with fat layer exposed Chronic ulcer of right foot with fat layer exposed Hyperparathyroidism, secondary renal Iron deficiency anemia Bilateral edema of lower extremity Chronic foot pain Charcot's joint of right foot Diabetes Non-smoker Myocardial infarct TIA (transient ischemic attack) Amputation foot, bilat 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 Ulcer of left foot with necrosis of muscle Ulcer of left foot with muscle involvement without evidence of necrosis Anxiety and depression Diabetic infection of left foot Delayed wound healing Non-compliance Diabetic polyneuropathy Ischemic cardiomyopathy Obesity (BMI 30.0-34.9) Acquired varus deformity of left foot Acquired varus deformity of right foot Atherosclerosis of [place] coronary artery of [place] heart without angina pectoris Hemoglobin A1c greater than 9.0% NSTEMI (non-ST elevated myocardial infarction) (09/20/18) GERD (gastroesophageal reflux disease) HLD (hyperlipidemia) Back pain, chronic RLS (restless legs syndrome) Home Medications ?Medication ?Instructions ?Recorded ?Last Taken ?Type paroxetine HCl 20 mg tablet 20 mg PO DAILY DEPRESSION 07/07/21 04/07/22 History sennosides 8.6 mg-docusate sodium 2 tab PO BID PRN PRN Constipation 04/24/22 Unknown Rx 50 mg tablet (Stool #0 tabs Softener-Stimulant Laxative) ascorbic acid (vitamin C) 500 mg 500 mg PO BID supplement 05/05/22 Unknown History tablet (Vitamin C) pantoprazole 40 mg tablet,delayed 40 mg PO BIDCM GERD 07/19/22 Unknown History release calcitriol 0.5 mcg capsule 0.5 mcg PO .COMPLEX on dialysis 12/16/23 07/09/24 History calcium acetate(phosphat bind) 667 676 mg PO TID is on dialysis 12/16/23 Unknown History mg capsule folic acid 800 mcg tablet 0.8 mg PO DAILY supplement 12/16/23 Unknown History levothyroxine 25 mcg tablet 25 mcg PO DAILY thyroid 12/16/23 Unknown History aspirin 81 mg capsule 81 mg PO DAILY blood thinner #30 12/26/23 Unknown Rx caps atorvastatin 40 mg tablet 40 mg PO DAILY cholesterol 03/18/24 06/26/24 History melatonin 3 mg tablet 3 mg PO QHS PRN PRN Insomnia #0 05/21/24 Unknown Rx tabs menthol 0.44 %-zinc oxide 20.6 % 1 applic topical BID skin care #0 05/21/24 Unknown Rx topical ointment (Calmoseptine) grams sucralfate 1 gram tablet 1 g PO TID@0700,1100,1600 05/21/24 Unknown Rx indigestion #0 tabs acetaminophen 325 mg tablet 650 mg PO Q6H PRN fever or pain 07/09/24 Unknown History insulin lispro 100 unit/mL 10 unit subcut TIDAC blood sugar 09/13/24 Unknown History subcutaneous pen (Humalog KwikPen (U-100) Insulin) ipratropium 0.5 mg-albuterol 3 mg 3 ml inhalation Q4H 09/13/24 Unknown History (2.5 mg base)/3 mL nebulization soln L.acidophil,salivari-Bifido 1 cap PO 4X/DAY #0 caps 09/21/24 Unknown Rx bifidum-Strep thermoph 175 mg capsule arginine 7 gram-glutam 7 1 packet PO BIDCM #0 ea 09/21/24 Unknown Rx gram-CaHMB 1.5 rikl-tcryy-rq-min oral pwd pkt (Ted (with collagen)) lorazepam 0.5 mg tablet 0.5 mg PO Q12H PRN anxiety #6 tabs 09/21/24 Unknown Rx nutrition tx glu 120 ml PO TIDCM #0 mL 09/21/24 Unknown Rx intol,lac-free,soy-fiber 0.06 gram-1.2 kcal/mL liquid (Glucerna 1.2 Howie) oxycodone 5 mg tablet 2.5 mg (1/2 x 5 mg) PO Q8H PRN 09/21/24 Unknown Rx pain 3 days #10 tabs carvedilol 25 mg tablet 12.5 mg PO BID blood pressure 12/06/24 Unknown History ferrous sulfate 325 mg (65 mg 325 mg PO QDAY 12/06/24 Unknown History iron) tablet,delayed release gabapentin 100 mg capsule 100 mg PO TID pain 12/06/24 Unknown History hydralazine 50 mg tablet 50 mg PO TID bp 12/06/24 Unknown History levetiracetam 500 mg tablet 250 mg PO .qod 12/06/24 Unknown History levetiracetam 500 mg tablet 500 mg PO BID 12/06/24 Unknown History ropinirole 0.25 mg tablet 0.25 mg PO QHS 12/06/24 Unknown History Allergy/AdvReac Type Severity Reaction Status Date / Time oxycodone (From OxyContin) Allergy sob Verified 02/27/25 08:24 Penicillins Allergy swelling Verified 02/27/25 08:24 in throat vancomycin Allergy Itching Verified 02/27/25 08:24 metronidazole AdvReac Nausea Verified 02/27/25 08:24 Family History Mother Diabetes CVA (cerebral vascular accident) Brother CAD (coronary artery disease) CABG X 3 Cancer testicular Diabetes Brother CAD (coronary artery disease) CABG X3 Diabetes Brother CAD (coronary artery disease) Stents Diabetes Sister CAD (coronary artery disease) CABG x 3 CVA (cerebral vascular accident) Diabetes Surgical History History of History of foot surgery History of bilateral carpal tunnel release History of rotator cuff surgery History of coronary artery stent placement (12/31/20) Social History household members: none number of children: 2 current occupational status: disabled Smoking Status: Never smoker alcohol intake: never substance use type: does not use caffeine: Yes Type: carbonated beverages Number of servings: 2 ROS ROS ED ROS Narrative Review of systems positive for itching and generalized pruritus with rash on dorsum of right hand and forearm. Denies fevers or chills, no nausea or vomiting, no shortness of breath or chest pain. EXAM Physical Exam Narrative Exam Narrative: Afebrile. Vital signs noted. Nontoxic-appearing. Mildly fatigued. Awake, alert, answering questions. Cardiovascular examination regular rate and rhythm. Lungs are clear to auscultation bilaterally. Abdomen is soft nontender with positive bowel sounds. Neurological examination is nonfocal and nonlateralizing. Skin examination does show areas of excoriation that are more linear on her right wrist, no surrounding erythema, no crepitance. Palpable radial pulse. Const Vital Signs: 02/27/25 08:24 02/27/25 09:23 02/27/25 10:00 Temperature 98.2 F 98.6 F Temperature Source Oral Oral Pulse Rate 67 78 68 Respiratory Rate 14 16 18 Blood Pressure 174/85 H 148/76 H 146/76 H Blood Pressure Mean 114 100 99 Pulse Ox 94 98 98 Oxygen Delivery Method Room Air Room Air Room Air MDM MDM MDM Narrative Medical decision making narrative: I reviewed the patient's prior records. No problem list she has history of transient ischemic attack as well as altered mental status and acute encephalopathy. I reviewed her prior ED notes as well. Differential diagnosis includes but not limited to electrolyte imbalance versus overmedication with antihistamines including Vistaril, and Benadryl. Regarding the itching and pruritus, I do not feel that she is having an anaphylactic reaction, and she has had the generalized pruritus for over a week. She is on gabapentin as well as lorazepam and reportedly on Suboxone. I reviewed her laboratory work and she has normal white count of 4.6 with hemoglobin 13.0, hematocrit 40.0, platelet count normal at 198. BMP is significant for chloride low at 96, with BUN of 47 and creatinine 4.47, consistent with her end-stage renal disease. Glucose elevated at 123 with normal anion gap of 15. Ammonia level is normal at 22.9. At this point in time, I do not feel she needs CT imaging of the brain, nor do I feel that she needs admission for her reported decreased mental status. I will discuss patient with the tank setter helper as RN attempted to return her to dialysis today, but they declined. Given her normal potassium, I do feel that she can probably be discharged back to the halfway facility and await dialysis for her usual day on Tuesday. Repeat examination shows her to be more awake, alert, and interactive, concerned about her weeklong of generalized pruritus. Disposition is discharged in stable condition. History & Record Review Discussion w/independent historian: Patient Lab Data Attestation: I reviewed the patient's lab results. Labs: Laboratory Results - last 24 hr 02/27/25 09:20 WBC 4.6 RBC 4.42 Hgb 13.0 Hct 40.0 MCV 90.5 MCH 29.4 MCHC 32.5 RDW Std Deviation 50.5 H RDW Coeff of Fior 15.2 H Plt Count 198 MPV 11.0 Immature Gran % (Auto) 0.200 Neut % (Auto) 68.2 Lymph % (Auto) 17.2 L Rogers % (Auto) 8.9 Eos % (Auto) 4.6 Baso % (Auto) 0.9 Absolute Neuts (auto) 3.1 Absolute Lymphs (auto) 0.79 L Nucleated RBC % 0 Sodium 136 Potassium 4.8 Chloride 96 L Carbon Dioxide 24.6 Anion Gap 15 BUN 47 H Creatinine 4.47 H Estim Creat Clear Calc 13.87 L Est GFR (MDRD) Non-Af 11 L BUN/Creatinine Ratio 10.4 Glucose 123 H Calcium 9.1 Ammonia 22.9 Management Discussion w/another healthcare provider: Winding Rack Operator (Dr. Joel, nephrology) Discharge Plan Triage Chief Complaint: Alt LOC ED Provider: Rik Guadalupe Dx/Rx/DC Orders Clinical Impression: Medication side effects, ESRD (end stage renal disease) on dialysis, Mental status, decreased, Pruritus Instructions: ED ALOC, ED Hemodialysis Prescriptions: No Action paroxetine HCl 20 mg tablet 20 mg PO DAILY Patient Comments: TAKE 1 TABLET BY MOUTH EVERY DAY IN THE EVENING sennosides-docusate sodium [Stool Softener-Stimulant Laxat] 8.6-50 mg Tablet 2 tab PO BID PRN PRN (Reason: Constipation) Qty: 0 0RF ascorbic acid (vitamin C) [Vitamin C] 500 mg Tablet 500 mg PO BID pantoprazole 40 mg tablet,delayed release (DR/EC) 40 mg PO BIDCM atorvastatin 40 mg tablet 40 mg PO DAILY melatonin 3 mg Tablet 3 mg PO QHS PRN PRN (Reason: Insomnia) Qty: 0 0RF menthol-zinc oxide [Calmoseptine] 0.44-20.6 % Ointment 1 applic topical BID Qty: 0 0RF Protocol: *Topical Application Instructions APPLICATION INSTRUCTIONS: BUTTOCKS sucralfate 1 gram Tablet 1 g PO TID@0700,1100,1600 Qty: 0 0RF acetaminophen 325 mg Tablet 650 mg PO Q6H PRN (Reason: fever or pain) ipratropium-albuterol 0.5 mg-3 mg(2.5 mg base)/3 mL solution for nebulization 3 ml inhalation Q4H insulin lispro [Humalog KwikPen Insulin] 100 unit/mL Insulin Pen 10 unit subcut TIDAC Protocol: 4. Sliding Scale Insulin High-Med Dosing Condition: 150-199 mg/dl = 2 units Condition: 200-259 mg/dl = 4 units Condition: 260-324 mg/dl = 6 units Condition: 325-374 mg/dl = 8 units Condition: 375-409 mg/dl = 10 units Condition: 410-449 mg/dl = 11 units Condition: Greater than 449 call physician Protocol Text: Suggested for: - Patients on Total Daily Insulin Dose of 56-80 units - Patient who are known to be insulin resistant or septic HIGH MEDIUM DOSING ALGORITHM L.acidoph,saliva-B.bif-S.therm 175 mg Capsule 1 cap PO 4X/DAY Qty: 0 0RF Glucerna 1.2 Howie 0.06-1.2 gram-kcal/mL Liquid 120 ml PO TIDCM Qty: 0 0RF Ted (with collagen) 7-7-1.5 gram Powder In Packet 1 packet PO BIDCM Qty: 0 0RF lorazepam 0.5 mg Tablet 0.5 mg PO Q12H PRN (Reason: anxiety) Qty: 6 0RF oxycodone 5 mg tablet 2.5 mg PO Q8H PRN (Reason: pain) 3 Days Qty: 10 0RF calcium acetate(phosphat bind) 667 mg capsule 676 mg PO TID Patient Comments: TAKE 1 CAPSULE BY MOUTH THREE TIMES A DAY WITH FOOD folic acid 800 mcg tablet 0.8 mg PO DAILY Patient Comments: TAKE 1 TABLET BY MOUTH EVERY DAY levothyroxine 25 mcg tablet 25 mcg PO DAILY Patient Comments: TAKE 1 TABLET BY MOUTH EVERY DAY BEFORE BREAKFAST calcitriol 0.5 mcg capsule 0.5 mcg PO .COMPLEX Rx Instructions: 0.5 mcg orally three times a week; aspirin 81 mg capsule 81 mg PO DAILY Qty: 30 1RF Primary Care Provider: Raúl Eric Referrals: Raúl Eric MD [Primary Care Provider] - Activity Restrictions/Additional Instructions: Do not combine multiple antihistamines including Vistaril and Benadryl along with some of your other medications. Follow-up with dialysis on Tuesday according to your tank setter helper. Return with new or worsening symptoms. Print Language: Surinamese Disposition Disposition: Home, Self Care
[2025-02-27 09:23] VITALS: BP 148/76; PULSE 78; RESP 16; O2SAT 98
[2025-02-27 09:27] LABS: Absolute Lymphocyte Count 0.79 X10^3/uL (0.83-4.51); Absolute Neutrophil Count 3.1 X10^3/uL (2.0-7.7); Basophil# 0.04 X10^3/uL; Basophil% 0.9 % (0-1); Eosinophil# 0.21 X10^3/uL; Eosinophils% 4.6 % (0-5); Lymphocyte # 0.79 X10^3/ul (0.83-4.51); Lymphocyte % 17.2 % (19-41); Mean Corp Hgb Conc 32.5 g/dL (32-36); Mean Corpuscular Hgb 29.4 pg (27.0-32.0); Mean Corpuscular Volume 90.5 fL (81-99); Monocyte# 0.41 X10^3/uL; Monocyte% 8.9 % (0-10); NRBC Flagged by Analyzer 0 % (0-5); Neutrophil # 3.13 X10^3/uL (2.7-7.7); Neutrophil % 68.2 % (47-70); Platelet Count 198 K/mm3 (150-450); RBC Distribution Width CV 15.2 % (11.6-14.6); RBC Distribution Width SD 50.5 fl (35.1-43.9); Red Blood Count 4.42 M/mm3 (4.2-5.4); White Blood Count 4.6 K/mm3 (4.4-11.0)
[2025-02-27 10:00] VITALS: BP 146/76; PULSE 68; RESP 18; TEMP 37; O2SAT 98
[2025-02-27 10:06] LABS: Anion Gap 15 (5-15); BUN 47 mg/dL (4-19); BUN/Creat Ratio 10.4 RATIO (10-20); Calcium,Total 9.1 mg/dL (7.6-11.0); Carbon Dioxide 24.6 mmol/L (21.0-32.0); Chloride 96 mmol/L (98-108); Creatinine, Serum 4.47 mg/dL (0.70-1.20); EST Glomerular Filtration Rate 11 (>60); Estimated Creatinine Clearance 13.87 ml/min (50-250); Glucose 123 mg/dL (70-99); Potassium 4.8 mmol/L (3.3-5.1); Sodium Level 136 mmol/L (133-145)
[2025-02-27 10:12] LABS: Ammonia 22.9 umol/L (11-51)
[2025-02-27 11:00] VITALS: BP 159/64; BP 176/76; PULSE 64; PULSE 78; RESP 16; RESP 18; TEMP 36.6; O2SAT 99
[2025-02-27 12:00] VITALS: BP 151/78; PULSE 78; RESP 16; O2SAT 98
== END 2025-02-27 12:29 | disposition home or self-care (01) ==
PROVIDERS: Emergency Provider Emergency Medicine; PCP Family Medicine; Visit Provider Emergency Medicine
DX: R41.82 Altered mental status, unspecified (principal); N18.6 End stage renal disease; I12.0 Hypertensive chronic kidney disease with stage 5 chronic kidney disease or end stage renal disease; E11.65 Type 2 diabetes mellitus with hyperglycemia; E11.22 Type 2 diabetes mellitus with diabetic chronic kidney disease; E11.42 Type 2 diabetes mellitus with diabetic polyneuropathy; Z79.4 Long term (current) use of insulin; T88.7XXA Unspecified adverse effect of drug or medicament, initial encounter; L29.9 Pruritus, unspecified; Z99.2 Dependence on renal dialysis; I25.10 Atherosclerotic heart disease of native coronary artery without angina pectoris; I25.5 Ischemic cardiomyopathy; E78.5 Hyperlipidemia, unspecified; Z79.82 Long term (current) use of aspirin; Z79.890 Hormone replacement therapy; Z79.899 Other long term (current) drug therapy; I25.2 Old myocardial infarction; Z86.73 Personal history of transient ischemic attack (TIA), and cerebral infarction without residual deficits; Z95.5 Presence of coronary angioplasty implant and graft
CPT/HCPCS: 80048; 82140; 85025; 99284

== ENCOUNTER 2025-04-01 08:59 | Day surgery (SDC) | payer MEDICARE, MEDICAID, SELFPAY ==
[2018-09-21 13:23] VITALS: BMI 29.3
--- NOTE | 2025-03-18 12:02 | PAT.ANESEVAL ---
Pre-Assessment Diagnosis/Proposed Procedure Planned Operative Procedure(s): LEFT ARM ARTERIOVENOUS FISTULA CREATION Anesthesia History Anesthesia History - city carrier assistant: Anesthesia History - city carrier assistant Hx Hospitalization Yes: MULTIPLE STAYS [facility] 03/18/25 11:27 Any Problems With Anesthesia No 03/18/25 11:27 Cholinesterase deficiency No 03/18/25 11:27 You/Your Family Experience No 03/18/25 11:27 fever (hyperthermia) with Relationship Recent Exposure to Contagious No 09/19/24 02:35 Disease Does patient have nerve No 03/18/25 11:27 stimulator Patient instructed to have device shut off --Does patient have Pacemaker or ICD? When Was Last Pacemaker Check QUESTION #4 FULL TEXT: You/Your Family Experience fever (hyperthermia) with Anesthesia Last Oral Intake Last Oral intake: Last Oral Intake NPO since Meds taken in AM with sips of water? Meds patient instructed to take am of surgery PONV PONV - city carrier assistant: PONV - city carrier assistant Female Yes 03/18/25 11:27 HX of Motion Sickness No 03/18/25 11:27 HX of N/V After Surgery No 03/18/25 11:27 Non-Smoker Yes 03/18/25 11:27 Duration of Surgery greater Yes 03/18/25 11:27 than 60 minutes Number of Risk Factors 3 03/18/25 11:27 PONV Score Moderate Risk 03/18/25 11:27 Height & Weight Height & Weight: Anesthesia: Height & Weight Height 5 ft 6 in 02/27/25 08:24 Respiratory Assessment Respiratory Assessment - city carrier assistant: Respiratory Tract Infection Hx - city carrier assistant Hx Respiratory Tract Infection No 03/18/25 11:27 STOP Sleep Apnea STOP Sleep Apnea - city carrier assistant: STOP Sleep Apnea - city carrier assistant Hx Hypertension Yes 03/18/25 11:27 Hx Sleep Apnea No 03/18/25 11:27 CPAP No 09/19/24 14:07 BIPAP No 09/13/24 21:29 Do you snore loudly (louder No 03/18/25 11:27 than talking or can be heard Do you often feel tired/ Yes 03/18/25 11:27 fatigued/ sleepy during daytime? Has anyone observed you stop No 03/18/25 11:27 breathing during sleep? STOP Results Positive 03/18/25 11:27 QUESTION #5 FULL TEXT : Do you snore loudly (louder than talking or can be heard through closed doors)? Tobacco Use History Tobacco Use History - city carrier assistant: Tobacco Use History - city carrier assistant Tobacco Use Non-smoker 07/10/24 09:21 Smoking Status Never smoker 03/18/25 11:27 Hx Tobacco Use No 03/18/25 11:27 Years Smoking Packs Smoked per Day Smoking Cessation Date was within the last 15 years Hx Smoking Cessation Date Hx Smoking Cessation Counseling Hematologic Medial History Hematologic Hx - city carrier assistant: Hematologic Medical Hx - jewelry consultant Hx of Blood Transfusion Hx of Transfusion in last 3 Months Date of Last Transfusion (if within last 3 months) Ever experience any problems with transfusion(s)? Specify any problems Hx of Preganancy in last 3 Months Nurse Filling Out Transfusion & Questions: Date: Time: Patient unable to answer at Yes 03/18/25 11:27 this time (ie. confused, unrespo /Reproduction History /Reproductive History - city carrier assistant: /Reproductive Hx- city carrier assistant Hx Now No 03/18/25 11:27 Gestational Age (in weeks): EDC: Hx Hx Para Hx Section SAB No 03/18/25 11:27 [facility] Medical History (Updated 03/18/25 @ 11:42 by Wesly Sarah) History of stress test History of echocardiogram History of transesophageal echocardiography (HONG) History of TIA (transient ischemic attack) History of myocardial infarction Diabetes mellitus type 2 with complications Non-pressure chronic ulcer of ankle with fat layer exposed Secondary hyperparathyroidism Non-pressure chronic ulcer of right ankle with necrosis of muscle Non-pressure chronic ulcer of left ankle with necrosis of muscle Adverse effect of synthetic cannabinoids, initial encounter [place] coma scale score 13-15, at arrival to emergency department Acute alteration in mental status Short Achilles tendon (acquired), left ankle Short Achilles tendon (acquired), right ankle Acquired cavovarus deformity of left foot Acquired cavovarus deformity of right foot Type 2 diabetes mellitus with diabetic polyneuropathy Adult failure to thrive ESRD (end stage renal disease) on dialysis Drowsiness Mental status, decreased Carotid artery stenosis MSSA bacteremia ESRD on hemodialysis Osteomyelitis Anemia in chronic illness Type 2 diabetes mellitus Foot osteomyelitis, left Chronic renal disease, stage 4, severely decreased glomerular filtration rate (GFR) between 15-29 mL/min/1.73 square meter Acute on chronic anemia Chronic ulcer of right foot with necrosis of bone Chronic kidney disease, stage 4 (severe) Diabetes mellitus with diabetic polyneuropathy Diabetic foot ulcers Chronic kidney disease, stage 3b Charcot's joint, right ankle and foot Charcot's joint, left ankle and foot Cellulitis Acute lumbar radiculopathy Essential hypertension Adult failure to thrive COVID-19 (08/28/21) Chronic ulcer of right leg with fat layer exposed Ulcer of left foot with fat layer exposed Chronic ulcer of right foot with fat layer exposed Hyperparathyroidism, secondary renal Iron deficiency anemia Bilateral edema of lower extremity Chronic foot pain Non-pressure chronic 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 layer exposed Debility Charcot's joint of right foot Diabetes Non-smoker Myocardial infarct Hypertension TIA (transient ischemic attack) Amputation foot, bilat Non-pressure chronic ulcer of other part of left foot with fat layer exposed 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 Ulcer of left foot with necrosis of muscle Ulcer of left foot with muscle involvement without evidence of necrosis Anxiety and depression Diabetic infection of left foot Delayed wound healing Non-compliance Diabetic polyneuropathy Ischemic cardiomyopathy Obesity (BMI 30.0-34.9) Acquired varus deformity of left foot Acquired varus deformity of right foot Atherosclerosis of cahto coronary artery of cahto heart without angina pectoris Hemoglobin A1c greater than 9.0% NSTEMI (non-ST elevated myocardial infarction) (09/20/18) GERD (gastroesophageal reflux disease) HLD (hyperlipidemia) Back pain, chronic RLS (restless legs syndrome) Home Medications ?Medication ?Instructions ?Recorded ?Last Taken ?Type paroxetine HCl 20 mg tablet 20 mg PO QHS DEPRESSION 07/07/21 04/07/22 History ascorbic acid (vitamin C) 500 mg 500 mg PO BID supplement 05/05/22 Unknown History tablet (Vitamin C) pantoprazole 40 mg tablet,delayed 40 mg PO BIDCM GERD 07/19/22 Unknown History release folic acid 800 mcg tablet 0.8 mg PO DAILY supplement 12/16/23 Unknown History levothyroxine 25 mcg tablet 25 mcg PO DAILY thyroid 12/16/23 Unknown History aspirin 81 mg capsule 81 mg PO DAILY blood thinner #30 12/26/23 Unknown Rx caps atorvastatin 40 mg tablet 40 mg PO DAILY cholesterol 03/18/24 06/26/24 History acetaminophen 325 mg tablet 650 mg PO Q6H PRN fever or pain 07/09/24 Unknown History insulin lispro 100 unit/mL See Protocol subcut TIDAC blood 09/13/24 Unknown History subcutaneous pen (Humalog KwikPen sugar (U-100) Insulin) L.acidophil,salivari-Bifido 1 cap PO 4X/DAY #0 caps 09/21/24 Unknown Rx bifidum-Strep thermoph 175 mg capsule nutrition tx glu 120 ml PO TIDCM #0 mL 09/21/24 Unknown Rx intol,lac-free,soy-fiber 0.06 gram-1.2 kcal/mL liquid (Glucerna 1.2 Howie) carvedilol 25 mg tablet 12.5 mg PO QHS blood pressure 12/06/24 Unknown History gabapentin 100 mg capsule 100 mg PO TID pain 12/06/24 Unknown History levetiracetam 500 mg tablet 250 mg PO MOWEFR 12/06/24 Unknown History levetiracetam 500 mg tablet 500 mg PO BID 12/06/24 Unknown History ropinirole 0.25 mg tablet 0.25 mg PO QHS 12/06/24 Unknown History artificial 1 drp ophthalmic (eye) QHS 02/28/25 Unknown History tears(kylzghr-trhhfjso-ptjijfh) 0.1 %-0.3 %-0.2 % eye drops (GenTeal Tears Moderate) hydrocortisone 1 % topical cream 1 applic topical BID PRN itching 02/28/25 Unknown History (Cortisone (hydrocortisone)) hydroxyzine HCl 25 mg tablet 25 mg PO TID PRN itching 02/28/25 Unknown History methadone 5 mg tablet 2.5 mg PO TID 02/28/25 Unknown History ondansetron HCl 4 mg tablet 4 mg PO Q8H 02/28/25 Unknown History carvedilol 12.5 mg tablet (Coreg) 12.5 mg PO .TUTHFRSASU 03/18/25 Unknown History hydralazine 100 mg tablet 100 mg PO BID 03/18/25 Unknown History lorazepam 0.5 mg tablet 0.5 mg PO DAILY anxiety 03/18/25 Unknown History melatonin 5 mg capsule 5 mg PO QHS 03/18/25 Unknown History sucralfate 1 gram tablet 1 g PO ACHS indigestion 03/18/25 Unknown History Allergy/AdvReac Type Severity Reaction Status Date / Time fentanyl Allergy Other Verified 03/18/25 11:10 oxycodone (From OxyContin) Allergy sob Verified 03/18/25 11:10 Penicillins Allergy swelling Verified 03/18/25 11:10 in throat vancomycin Allergy Itching Verified 03/18/25 11:10 metronidazole AdvReac Nausea Verified 03/18/25 11:10 Family History Mother Diabetes CVA (cerebral vascular accident) Brother CAD (coronary artery disease) CABG X 3 Cancer testicular Diabetes Brother CAD (coronary artery disease) CABG X3 Diabetes Brother CAD (coronary artery disease) Stents Diabetes Sister CAD (coronary artery disease) CABG x 3 CVA (cerebral vascular accident) Diabetes Surgical History (Updated 03/18/25 @ 11:42 by Wesly Sarah) History of cardiac catheterization History of History of foot surgery History of bilateral carpal tunnel release History of rotator cuff surgery History of coronary artery stent placement (12/31/20) Social History household members: none number of children: 2 current occupational status: disabled Smoking Status: Never smoker alcohol intake: never substance use type: does not use caffeine: Yes Type: carbonated beverages Number of servings: 2 Audit: Pertinent Findings Pertinent Findings EKG Perinent findings: 01/07/2025. Normal sinus rhythm 86 bpm. Prolonged QT. 412 ms. Stress test pertinent findings: 07/08/2021. Mildly abnormal perfusion stress test with mild anterior ischemia EF 35%. Echo (EF%) pertinent findings: 12/16/2023. EF 65%. Normal size function. Heart catheterization pertinent findings: 07/20/2022. Previously placed stent in LAD is patent. Disease in circumflex is unchanged. Consult pertinent findings: Cardiology 2020. Continued chest pain. Will proceed with stress test. Prior history of coronary artery stent placement. Mid LAD. DARA proximal LAD. Recommendation Anesthesia Recommendation Anesthesia recommendation: OPTIMIZED for anesthesia
[2025-04-01] VITALS (13 sets, daily range): BP systolic 97–195; BP diastolic 57–116; PULSE 57–75; RESP 16–18; TEMP 36.1–36.4; O2SAT 88–98; BMI 27.5
--- NOTE | 2025-04-01 10:02 | PCM.HP.STD ---
HPI - General HPI Narrative DIONY ROCHA, is a 59 F who presents with ESRD currently on dialysis via left IJ catheter. Mapping revealed adequate left basilic vein. [facility] Medical History (Updated 03/18/25 @ 11:42 by Wesly Sarah) History of stress test History of echocardiogram History of transesophageal echocardiography (HONG) History of TIA (transient ischemic attack) History of myocardial infarction Diabetes mellitus type 2 with complications Non-pressure chronic ulcer of ankle with fat layer exposed Secondary hyperparathyroidism Non-pressure chronic ulcer of right ankle with necrosis of muscle Non-pressure chronic ulcer of left ankle with necrosis of muscle Adverse effect of synthetic cannabinoids, initial encounter Avery coma scale score 13-15, at arrival to emergency department Acute alteration in mental status Short Achilles tendon (acquired), left ankle Short Achilles tendon (acquired), right ankle Acquired cavovarus deformity of left foot Acquired cavovarus deformity of right foot Type 2 diabetes mellitus with diabetic polyneuropathy Adult failure to thrive ESRD (end stage renal disease) on dialysis Drowsiness Mental status, decreased Carotid artery stenosis MSSA bacteremia ESRD on hemodialysis Osteomyelitis Anemia in chronic illness Type 2 diabetes mellitus Foot osteomyelitis, left Chronic renal disease, stage 4, severely decreased glomerular filtration rate (GFR) between 15-29 mL/min/1.73 square meter Acute on chronic anemia Chronic ulcer of right foot with necrosis of bone Chronic kidney disease, stage 4 (severe) Diabetes mellitus with diabetic polyneuropathy Diabetic foot ulcers Chronic kidney disease, stage 3b Charcot's joint, right ankle and foot Charcot's joint, left ankle and foot Cellulitis Acute lumbar radiculopathy Essential hypertension Adult failure to thrive COVID-19 (08/28/21) Chronic ulcer of right leg with fat layer exposed Ulcer of left foot with fat layer exposed Chronic ulcer of right foot with fat layer exposed Hyperparathyroidism, secondary renal Iron deficiency anemia Bilateral edema of lower extremity Chronic foot pain Non-pressure chronic 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 layer exposed Debility Charcot's joint of right foot Diabetes Non-smoker Myocardial infarct Hypertension TIA (transient ischemic attack) Amputation foot, bilat Non-pressure chronic ulcer of other part of left foot with fat layer exposed 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 Ulcer of left foot with necrosis of muscle Ulcer of left foot with muscle involvement without evidence of necrosis Anxiety and depression Diabetic infection of left foot Delayed wound healing Non-compliance Diabetic polyneuropathy Ischemic cardiomyopathy Obesity (BMI 30.0-34.9) Acquired varus deformity of left foot Acquired varus deformity of right foot Atherosclerosis of [place] coronary artery of [place] heart without angina pectoris Hemoglobin A1c greater than 9.0% NSTEMI (non-ST elevated myocardial infarction) (09/20/18) GERD (gastroesophageal reflux disease) HLD (hyperlipidemia) Back pain, chronic RLS (restless legs syndrome) Home Medications ?Medication ?Instructions ?Recorded ?Last Taken ?Type paroxetine HCl 20 mg tablet 20 mg PO QHS DEPRESSION 07/07/21 04/07/22 History ascorbic acid (vitamin C) 500 mg 500 mg PO BID supplement 05/05/22 Unknown History tablet (Vitamin C) pantoprazole 40 mg tablet,delayed 40 mg PO BIDCM GERD 07/19/22 Unknown History release folic acid 800 mcg tablet 0.8 mg PO DAILY supplement 12/16/23 Unknown History levothyroxine 25 mcg tablet 25 mcg PO DAILY thyroid 12/16/23 Unknown History aspirin 81 mg capsule 81 mg PO DAILY blood thinner #30 12/26/23 Unknown Rx caps atorvastatin 40 mg tablet 40 mg PO DAILY cholesterol 03/18/24 06/26/24 History acetaminophen 325 mg tablet 650 mg PO Q6H PRN fever or pain 07/09/24 Unknown History insulin lispro 100 unit/mL See Protocol subcut TIDAC blood 09/13/24 Unknown History subcutaneous pen (Humalog KwikPen sugar (U-100) Insulin) L.acidophil,salivari-Bifido 1 cap PO 4X/DAY #0 caps 09/21/24 Unknown Rx bifidum-Strep thermoph 175 mg capsule nutrition tx glu 120 ml PO TIDCM #0 mL 09/21/24 Unknown Rx intol,lac-free,soy-fiber 0.06 gram-1.2 kcal/mL liquid (Glucerna 1.2 Howie) carvedilol 25 mg tablet 12.5 mg PO QHS blood pressure 12/06/24 Unknown History gabapentin 100 mg capsule 100 mg PO TID pain 12/06/24 Unknown History levetiracetam 500 mg tablet 250 mg PO MOWEFR 12/06/24 Unknown History levetiracetam 500 mg tablet 500 mg PO BID 12/06/24 Unknown History ropinirole 0.25 mg tablet 0.25 mg PO QHS 12/06/24 Unknown History artificial 1 drp ophthalmic (eye) QHS 02/28/25 Unknown History tears(xfvpisy-najjiwya-ekucvme) 0.1 %-0.3 %-0.2 % eye drops (GenTeal Tears Moderate) hydrocortisone 1 % topical cream 1 applic topical BID PRN itching 02/28/25 Unknown History (Cortisone (hydrocortisone)) hydroxyzine HCl 25 mg tablet 25 mg PO TID PRN itching 02/28/25 Unknown History methadone 5 mg tablet 2.5 mg PO TID 02/28/25 Unknown History ondansetron HCl 4 mg tablet 4 mg PO Q8H 02/28/25 Unknown History carvedilol 12.5 mg tablet (Coreg) 12.5 mg PO .[id number] 03/18/25 Unknown History hydralazine 100 mg tablet 100 mg PO BID 03/18/25 Unknown History lorazepam 0.5 mg tablet 0.5 mg PO DAILY anxiety 03/18/25 Unknown History melatonin 5 mg capsule 5 mg PO QHS 03/18/25 Unknown History sucralfate 1 gram tablet 1 g PO ACHS indigestion 03/18/25 Unknown History Allergy/AdvReac Type Severity Reaction Status Date / Time fentanyl Allergy Other Verified 04/01/25 09:46 oxycodone (From OxyContin) Allergy sob Verified 04/01/25 09:46 Penicillins Allergy swelling Verified 04/01/25 09:46 in throat vancomycin Allergy Itching Verified 04/01/25 09:46 metronidazole AdvReac Nausea Verified 04/01/25 09:46 Family History Mother Diabetes CVA (cerebral vascular accident) Brother CAD (coronary artery disease) CABG X 3 Cancer testicular Diabetes Brother CAD (coronary artery disease) CABG X3 Diabetes Brother CAD (coronary artery disease) Stents Diabetes Sister CAD (coronary artery disease) CABG x 3 CVA (cerebral vascular accident) Diabetes Surgical History (Updated 03/18/25 @ 11:42 by Wesly Sarah) History of cardiac catheterization History of History of foot surgery History of bilateral carpal tunnel release History of rotator cuff surgery History of coronary artery stent placement (12/31/20) Social History household members: none number of children: 2 current occupational status: disabled Smoking Status: Never smoker alcohol intake: never substance use type: does not use caffeine: Yes Type: carbonated beverages Number of servings: 2 ROS Constitutional Constitutional: Denies chills, fever(s), frequent falls, lethargy or weakness Eyes Eyes: Denies blind spots, change in vision or loss of vision ENT HEENT: Denies bleeding gums, hoarseness or sore throat Cardiovascular Cardiovascular: Denies abdominal pain, bluish discoloration of hand/feet, chest pain with activity, claudication, cold extremities, cyanosis, dyspnea on exertion, erythema on extremities, irregular heart rhythm, leg edema, leg ulcers, numbness in extremities or weakness in extremities Respiratory/Chest Respiratory/Chest: Denies cough, excessive phlegm production, shortness of breath at rest, shortness of breath with exertion or wheezing Gastrointestinal Gastrointestinal: Denies anorexia, change in stool character, constipation, diarrhea, melena or rectal bleeding Genitourinary Genitourinary: Denies dysuria or hematuria Musculoskeletal Musculoskeletal: Denies abnormal gait Integumentary Integumentary: Reports other Details: ; Denies erythema, non-healing lesions or wounds Neurologic Neurologic: Denies abnormal speech, focal weakness, headache(s), loss of vision, numbness, paresthesias or sensory deficit Hematologic/Lymphatic Hematologic/Lymphatic: Denies easy bleeding, easy bruising or lymphadenopathy Physical Exam Const alert, oriented x3, no apparent distress and healthy appearing General Appearance: cooperative; Negative for combative or lethargic Orientation / Consciousness: awake Exam Limitations: no limitations HEENT Head and Scalp: normocephalic and atraumatic Eyes EOMs intact bilaterally General Eye: normal appearance of both eyes Neck full ROM General: trachea midline Resp normal respiratory effort and no use of accessory muscles Effort and Inspection: Negative for labored, stridor or audible wheezes Cardio regular rate and regular rhythm Peripheral Pulses: radial pulses present Back/Spine Cervical Spine: cervical ROM normal Extremity full ROM, normal capillary refill and no clubbing, cyanosis or edema Skin no rashes or lesions noted and no wounds Neuro oriented x3, CN's II-XII intact bilaterally, no focal motor deficits and no sensory deficits noted Psych thought process normal, cooperative, affect normal, speech normal and activity/motor behavior normal Assessment & Plan Assessment/Plan (1) ESRD (end stage renal disease) on dialysis: PLAN: -left stage I basilic fistula
[2025-04-01] MEDS: 0.9% Normal Saline (500mL Bag) 500 ML 15 ML IV (10:09)
--- NOTE | 2025-04-01 10:10 | PCM.PRE.AN2 ---
ASA Classification* ASA Classification ASA Classification: 4 Assessment & Plan Anesthesia* Anesthesia Assessment Anesthesia Assessment: Discussed sedation and/or anesthesia options, risks, benefits, and alternatives with patient/parents/legal guardian/POA. Questions invited. The patient/parents/legal guardian/POA seems to understand and agrees to proceed with anesthesia plan. Reviewed the physical assessment, medical history, allergy history and patient home medications list prior to surgery/procedure/anesthetic and documented any changes. Performed airway and anesthesia risk assessments. Anesthesia Type Anesthesia Type: General History Source History Obtained from:: Patient and Chart Anesthesia Focused Assessment* Temperature: 97.1 F Pulse Rate: 75 Blood Pressure: 195/97 Respiratory Rate: 16 Pulse Ox: 95 Oxygen Delivery Method: Room Air Airway Assessment Mouth opens: >3 cm Mallampati Score: III Teeth Condition: Missing Neck Range of motion (ROM): Full ROM Labs Anesthesia Preop lab: CBC WBC 4.6 K/mm3 (4.4-11.0) 02/27/25 09:20 02/27/25 RBC 4.42 M/mm3 (4.2-5.4) 02/27/25 09:20 02/27/25 Hgb 13.0 g/dL (12.0-15.0) 02/27/25 09:20 02/27/25 Hct 40.0 % (37-47) 02/27/25 09:20 02/27/25 Plt Count 198 K/mm3 (150-450) 02/27/25 09:20 02/27/25 CHEMISTRY Potassium 4.8 mmol/L (3.3-5.1) 02/27/25 09:20 02/27/25 Sodium 136 mmol/L (133-145) 02/27/25 09:20 02/27/25 Magnesium 1.7 mg/dL (1.6-2.6) 09/15/24 04:11 09/15/24 Phosphorus 2.1 mg/dL (2.5-4.9) L 09/21/24 08:08 09/21/24 BUN 47 mg/dL (4-19) H 02/27/25 09:20 02/27/25 Creatinine 4.47 mg/dL (0.70-1.20) H 02/27/25 09:20 02/27/25 Glucose 123 mg/dL (70-99) H 02/27/25 09:20 02/27/25 POC Glucose 130 mg/dL (74-106) H 09/21/24 16:45 09/21/24 TSH 2.490 uIU/mL (0.358-3.740) 09/14/24 04:59 09/14/24 COAG PT 14.6 SECONDS (11.7-14.9) 09/13/24 15:55 09/13/24 Urine Test Negative Negative 11/08/18 19:40 11/08/18 Pre-Assessment Diagnosis/Proposed Procedure Planned Operative Procedure(s): LEFT ARM ARTERIOVENOUS FISTULA CREATION Anesthesia History 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 When Was Last Pacemaker Check QUESTION #4 FULL TEXT: You/Your Family Experience fever (hyperthermia) with Anesthesia Last Oral Intake Last Oral intake: Last Oral Intake NPO since 04:00 04/01/25 09:58 Meds taken in AM with sips of Yes 04/01/25 09:58 water? Meds patient instructed to take am of surgery PONV PONV - uranium processing supervisor: PONV - uranium processing supervisor Female Yes 03/18/25 11:27 HX of Motion Sickness No 03/18/25 11:27 HX of N/V After Surgery No 03/18/25 11:27 Non-Smoker Yes 03/18/25 11:27 Duration of Surgery greater Yes 03/18/25 11:27 than 60 minutes Number of Risk Factors 3 03/18/25 11:27 PONV Score Moderate Risk 03/18/25 11:27 Height & Weight Height & Weight: Anesthesia: Height & Weight Height 5 ft 5 in 04/01/25 09:58 Weight: 75 kg 04/01/25 09:58 Body Mass Index (BMI) 27.5 04/01/25 09:58 Respiratory Assessment Respiratory Assessment - uranium processing supervisor: Respiratory Tract Infection Hx - uranium processing supervisor Hx Respiratory Tract Infection No 03/18/25 11:27 STOP Sleep Apnea STOP Sleep Apnea - uranium processing supervisor: STOP Sleep Apnea - uranium processing supervisor Hx Hypertension Yes 03/18/25 11:27 Hx Sleep Apnea No 03/18/25 11:27 CPAP No 09/19/24 14:07 BIPAP No 09/13/24 21:29 Do you snore loudly (louder No 03/18/25 11:27 than talking or can be heard Do you often feel tired/ Yes 03/18/25 11:27 fatigued/ sleepy during daytime? Has anyone observed you stop No 03/18/25 11:27 breathing during sleep? STOP Results Positive 03/18/25 11:27 QUESTION #5 FULL TEXT : Do you snore loudly (louder than talking or can be heard through closed doors)? 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 Specify any problems Hx of Preganancy in last 3 Months Nurse Filling Out Transfusion & Questions: Date: Time: Patient unable to answer at Yes 03/18/25 11:27 this time (ie. confused, unrespo /Reproduction History /Reproductive History - uranium processing supervisor: /Reproductive Hx- uranium processing supervisor Hx Now No 03/18/25 11:27 Gestational Age (in weeks): EDC: Hx Hx Para Hx Section SAB No 03/18/25 11:27 Active Medications Active Medications: Current Medications Generic Name Dose Route Start Last Admin Trade Name Freq PRN Reason Stop Dose Admin Clindamycin Phosphate 900 mg in 50 mls @ 75 mls/hr 04/01/25 11:00 Cleocin IV 04/01/25 11:39 INTRAOP ONE Sodium Chloride 500 mls @ 0 mls/hr 04/01/25 09:30 04/01/25 10:09 IV 15 mls/hr .Q0M TAB Administration [facility] Medical History (Updated 03/18/25 @ 11:42 by Wesly Sarah) History of stress test History of echocardiogram History of transesophageal echocardiography (HONG) History of TIA (transient ischemic attack) History of myocardial infarction Diabetes mellitus type 2 with complications Non-pressure chronic ulcer of ankle with fat layer exposed Secondary hyperparathyroidism Non-pressure chronic ulcer of right ankle with necrosis of muscle Non-pressure chronic ulcer of left ankle with necrosis of muscle Adverse effect of synthetic cannabinoids, initial encounter Avery coma scale score 13-15, at arrival to emergency department Acute alteration in mental status Short Achilles tendon (acquired), left ankle Short Achilles tendon (acquired), right ankle Acquired cavovarus deformity of left foot Acquired cavovarus deformity of right foot Type 2 diabetes mellitus with diabetic polyneuropathy Adult failure to thrive ESRD (end stage renal disease) on dialysis Drowsiness Mental status, decreased Carotid artery stenosis MSSA bacteremia ESRD on hemodialysis Osteomyelitis Anemia in chronic illness Type 2 diabetes mellitus Foot osteomyelitis, left Chronic renal disease, stage 4, severely decreased glomerular filtration rate (GFR) between 15-29 mL/min/1.73 square meter Acute on chronic anemia Chronic ulcer of right foot with necrosis of bone Chronic kidney disease, stage 4 (severe) Diabetes mellitus with diabetic polyneuropathy Diabetic foot ulcers Chronic kidney disease, stage 3b Charcot's joint, right ankle and foot Charcot's joint, left ankle and foot Cellulitis Acute lumbar radiculopathy Essential hypertension Adult failure to thrive COVID-19 (08/28/21) Chronic ulcer of right leg with fat layer exposed Ulcer of left foot with fat layer exposed Chronic ulcer of right foot with fat layer exposed Hyperparathyroidism, secondary renal Iron deficiency anemia Bilateral edema of lower extremity Chronic foot pain Non-pressure chronic 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 layer exposed Debility Charcot's joint of right foot Diabetes Non-smoker Myocardial infarct Hypertension TIA (transient ischemic attack) Amputation foot, bilat Non-pressure chronic ulcer of other part of left foot with fat layer exposed 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 Ulcer of left foot with necrosis of muscle Ulcer of left foot with muscle involvement without evidence of necrosis Anxiety and depression Diabetic infection of left foot Delayed wound healing Non-compliance Diabetic polyneuropathy Ischemic cardiomyopathy Obesity (BMI 30.0-34.9) Acquired varus deformity of left foot Acquired varus deformity of right foot Atherosclerosis of zuni coronary artery of zuni heart without angina pectoris Hemoglobin A1c greater than 9.0% NSTEMI (non-ST elevated myocardial infarction) (09/20/18) GERD (gastroesophageal reflux disease) HLD (hyperlipidemia) Back pain, chronic RLS (restless legs syndrome) Home Medications ?Medication ?Instructions ?Recorded ?Last Taken ?Type paroxetine HCl 20 mg tablet 20 mg PO QHS DEPRESSION 07/07/21 04/07/22 History ascorbic acid (vitamin C) 500 mg 500 mg PO BID supplement 05/05/22 Unknown History tablet (Vitamin C) pantoprazole 40 mg tablet,delayed 40 mg PO BIDCM GERD 07/19/22 Unknown History release folic acid 800 mcg tablet 0.8 mg PO DAILY supplement 12/16/23 Unknown History levothyroxine 25 mcg tablet 25 mcg PO DAILY thyroid 12/16/23 Unknown History aspirin 81 mg capsule 81 mg PO DAILY blood thinner #30 12/26/23 Unknown Rx caps atorvastatin 40 mg tablet 40 mg PO DAILY cholesterol 03/18/24 06/26/24 History acetaminophen 325 mg tablet 650 mg PO Q6H PRN fever or pain 07/09/24 Unknown History insulin lispro 100 unit/mL See Protocol subcut TIDAC blood 09/13/24 Unknown History subcutaneous pen (Humalog KwikPen sugar (U-100) Insulin) L.acidophil,salivari-Bifido 1 cap PO 4X/DAY #0 caps 09/21/24 Unknown Rx bifidum-Strep thermoph 175 mg capsule nutrition tx glu 120 ml PO TIDCM #0 mL 09/21/24 Unknown Rx intol,lac-free,soy-fiber 0.06 gram-1.2 kcal/mL liquid (Glucerna 1.2 Howie) carvedilol 25 mg tablet 12.5 mg PO QHS blood pressure 12/06/24 Unknown History gabapentin 100 mg capsule 100 mg PO TID pain 12/06/24 Unknown History levetiracetam 500 mg tablet 250 mg PO MOWEFR 12/06/24 Unknown History levetiracetam 500 mg tablet 500 mg PO BID 12/06/24 Unknown History ropinirole 0.25 mg tablet 0.25 mg PO QHS 12/06/24 Unknown History artificial 1 drp ophthalmic (eye) QHS 02/28/25 Unknown History tears(zlkkvkz-tjchyepw-bppznbb) 0.1 %-0.3 %-0.2 % eye drops (GenTeal Tears Moderate) hydrocortisone 1 % topical cream 1 applic topical BID PRN itching 02/28/25 Unknown History (Cortisone (hydrocortisone)) hydroxyzine HCl 25 mg tablet 25 mg PO TID PRN itching 02/28/25 Unknown History methadone 5 mg tablet 2.5 mg PO TID 02/28/25 Unknown History ondansetron HCl 4 mg tablet 4 mg PO Q8H 02/28/25 Unknown History carvedilol 12.5 mg tablet (Coreg) 12.5 mg PO .TUTHFRSASU 03/18/25 Unknown History hydralazine 100 mg tablet 100 mg PO BID 03/18/25 Unknown History lorazepam 0.5 mg tablet 0.5 mg PO DAILY anxiety 03/18/25 Unknown History melatonin 5 mg capsule 5 mg PO QHS 03/18/25 Unknown History sucralfate 1 gram tablet 1 g PO ACHS indigestion 03/18/25 Unknown History Allergy/AdvReac Type Severity Reaction Status Date / Time fentanyl Allergy Other Verified 04/01/25 09:46 oxycodone (From OxyContin) Allergy sob Verified 04/01/25 09:46 Penicillins Allergy swelling Verified 04/01/25 09:46 in throat vancomycin Allergy Itching Verified 04/01/25 09:46 metronidazole AdvReac Nausea Verified 04/01/25 09:46 Family History Mother Diabetes CVA (cerebral vascular accident) Brother CAD (coronary artery disease) CABG X 3 Cancer testicular Diabetes Brother CAD (coronary artery disease) CABG X3 Diabetes Brother CAD (coronary artery disease) Stents Diabetes Sister CAD (coronary artery disease) CABG x 3 CVA (cerebral vascular accident) Diabetes Surgical History (Updated 03/18/25 @ 11:42 by Wesly Sarah) History of cardiac catheterization History of History of foot surgery History of bilateral carpal tunnel release History of rotator cuff surgery History of coronary artery stent placement (12/31/20) Social History household members: none number of children: 2 current occupational status: disabled Smoking Status: Never smoker alcohol intake: never substance use type: does not use caffeine: Yes Type: carbonated beverages Number of servings: 2 Review of Systems (Anesthesia) ROS Narrative System reviewed and no additional complaints, except as documented.
[2025-04-01] MEDS: Clindamycin 900 MG/50 ML BAG 75 MG IV (10:50)
[2025-04-01 11:03] LABS: Potassium 5.3 mmol/L (3.3-5.1)
[2025-04-01] MEDS: Lidocaine 1% (20 ml mdv) 20 ML Vial (11:23)
[2025-04-01] MEDS: Bupivacaine 0.25% 30 ML Vial (11:24)
[2025-04-01 11:49] LABS: Bedside Glucose 111 mg/dL (74-106)
--- NOTE | 2025-04-01 12:26 | DCINST_ITS ---
Discharge Instructions Diet Discharge Diet: No restrictions Activity Lifting Restrictions: do not lift > 20 lbs with left arm for 3 weeks Additional Activity Instructions:: do not submerge incision for 3 weeks Dressing / Incision Call your doctor if your incision/area has: Sudden Increased Bleeding, Increased Pain/ Swelling, Increased Redness and Foul Smelling Discharge Call your doctor if you observe: Coldness, Increased Pain and Numbness or Tingling Remove Dressing in: 2 days Cleanse incision/area with: Soap & Water Follow Up Care Test Results: Test results from this visit will be discussed in further detail at your follow- up appointment, if applicable. Discharge Plan Admission Attending Provider: Kali Burciaga Primary Care Provider: Angel Sahu Instructions Print Language: Arabic Discharge Orders/Prescriptions Prescriptions: Continued levetiracetam 500 mg tablet 250 mg PO MOWEFR Rx Instructions: -- levetiracetam 500 mg tablet 500 mg PO BID ropinirole 0.25 mg tablet 0.25 mg PO QHS Rx Instructions: administer 1-3 hours before bedtime artificial tear(vkewr-baf-ovg) [GenTeal Tears Moderate] 0.1-0.3-0.2 % drops 1 drp ophthalmic (eye) QHS hydrocortisone [Cortisone (hydrocortisone)] 1 % cream 1 applic topical BID PRN (Reason: itching) hydroxyzine HCl 25 mg tablet 25 mg PO TID PRN (Reason: itching) methadone 5 mg tablet 2.5 mg PO TID ondansetron HCl 4 mg tablet 4 mg PO Q8H paroxetine HCl 20 mg tablet 20 mg PO QHS Patient Comments: TAKE 1 TABLET BY MOUTH EVERY DAY IN THE EVENING ascorbic acid (vitamin C) [Vitamin C] 500 mg Tablet 500 mg PO BID pantoprazole 40 mg tablet,delayed release (DR/EC) 40 mg PO BIDCM gabapentin 100 mg capsule 100 mg PO TID atorvastatin 40 mg tablet 40 mg PO DAILY carvedilol 25 mg tablet 12.5 mg PO QHS acetaminophen 325 mg Tablet 650 mg PO Q6H PRN (Reason: fever or pain) insulin lispro [Humalog KwikPen Insulin] 100 unit/mL Insulin Pen See Protocol subcut TIDAC Protocol: 4. Sliding Scale Insulin High-Med Dosing Condition: 150-199 mg/dl = 2 units Condition: 200-259 mg/dl = 4 units Condition: 260-324 mg/dl = 6 units Condition: 325-374 mg/dl = 8 units Condition: 375-409 mg/dl = 10 units Condition: 410-449 mg/dl = 11 units Condition: Greater than 449 call physician Protocol Text: Suggested for: - Patients on Total Daily Insulin Dose of 56-80 units - Patient who are known to be insulin resistant or septic HIGH MEDIUM DOSING ALGORITHM Ariessaliva-BJessicabif-S.therm 175 mg Capsule 1 cap PO 4X/DAY Qty: 0 0RF Glucerna 1.2 Howie 0.06-1.2 gram-kcal/mL Liquid 120 ml PO TIDCM Qty: 0 0RF folic acid 800 mcg tablet 0.8 mg PO DAILY Patient Comments: TAKE 1 TABLET BY MOUTH EVERY DAY levothyroxine 25 mcg tablet 25 mcg PO DAILY Patient Comments: TAKE 1 TABLET BY MOUTH EVERY DAY BEFORE BREAKFAST aspirin 81 mg capsule 81 mg PO DAILY Qty: 30 1RF melatonin 5 mg capsule 5 mg PO QHS carvedilol [Coreg] 12.5 mg tablet 12.5 mg PO .[facility] Rx Instructions: must administer with a meal/food 1 TAB DAILY , , FR SA, GRAY. DO NOT ADMINISTER BEFORE DIALYSIS hydralazine 100 mg tablet 100 mg PO BID sucralfate 1 gram Tablet 1 g PO ACHS lorazepam 0.5 mg Tablet 0.5 mg PO DAILY Referrals / Follow Up: Angel Sahu MD [Primary Care Provider] - Disposition Disposition (needs filled in before D/C Order can be placed): Home, Self Care
--- NOTE | 2025-04-01 12:58 | PCM.POST.ANE ---
Anesthesia: Postop Eval I Current Vital Signs Temperature: 97.5 F Pulse Rate: 59 Blood Pressure: 97/60 Respiratory Rate: 18 Pulse Ox: 93 Oxygen Delivery Method: Room Air Assessment Airway patent: Yes Spontaneous unlabored respirations: Yes Mental status: Calm and Asleep nausea: No Vomiting: No Anesthesia Complication: No Fluid Hydration Crystalloid volume administer (ml): 450 Total IV fluid infused: 450 Progress Note Anesthesia document: Postop Eval 1 completed: Yes
--- NOTE | 2025-04-01 13:32 | POSTOPAN2_ITS ---
Anesthesia Postop Eval I Sum Postop Eval Completion status Anesthesia document: Postop Eval 1 completed: Yes Anesthesia Postop Eval I Summary Anesthesia Postop Eval I Summary: Anesthesia Postop Eval I: Assessment Summary Airway patent Yes 04/01/25 12:58 WATCH [email or web address] CLOCK [email or web address] Spontaneous unlabored Yes 04/01/25 12:58 WATCH AND CLOCK [email or web address] respirations Mental status Calm,Asleep 04/01/25 12:58 WATCH AND CLOCK [email or web address] nausea No 04/01/25 12:58 WATCH AND CLOCK [email or web address] Vomiting No 04/01/25 12:58 WATCH AND CLOCK [email or web address] Anesthesia Postop Eval I: Fluid Summary Crystalloid volume administer 450 04/01/25 12:58 WATCH AND CLOCK [email or web address] (ml) Colloids volume administered ( ml) Blood Product volume administered (ml) Total IV fluid infused 450 04/01/25 12:58 WATCH AND CLOCK [email or web address] Anesthesia Postop Eval I: Summary Notes Anesthesia Complication No 04/01/25 12:58 WATCH AND CLOCK [email or web address] Anesthesia Complication Comment: Post-operative progress note Anesthesia: Postop Eval II Evaluation Mental status: Calm Pain Level: 0 nausea: No Vomiting: No Complications Anesthesia Complication: No
--- NOTE | 2025-04-01 13:32 | PCM.POSTANE2 ---
Anesthesia Postop Eval I Sum Postop Eval Completion status Anesthesia document: Postop Eval 1 completed: Yes Anesthesia Postop Eval I Summary Anesthesia Postop Eval I Summary: Anesthesia Postop Eval I: Assessment Summary Airway patent Yes 04/01/25 12:58 [email or web address] Spontaneous unlabored Yes 04/01/25 12:58 [email or web address] [email or web address] respirations Mental status Calm,Asleep 04/01/25 12:58 [email or web address] [email or web address] nausea No 04/01/25 12:58 [email or web address] [email or web address] Vomiting No 04/01/25 12:58 [email or web address] Anesthesia Postop Eval I: Fluid Summary Crystalloid volume administer 450 04/01/25 12:58 [email or web address] (ml) Colloids volume administered ( ml) Blood Product volume administered (ml) Total IV fluid infused 450 04/01/25 12:58 [email or web address] Anesthesia Postop Eval I: Summary Notes Anesthesia Complication No 04/01/25 12:58 [email or web address] Anesthesia Complication Comment: Post-operative progress note Anesthesia: Postop Eval II Evaluation Mental status: Calm Pain Level: 0 nausea: No Vomiting: No Complications Anesthesia Complication: No
[2025-04-01] MEDS: Heparin 10,000 UNITS/10 ML Vial 1000 UNITS IV (14:58)
--- NOTE | 2025-04-01 16:07 | PCM.OPRPT ---
Operative Report (Standard) Operative Information Date of Procedure: 04/01/25 Pre-Operative Diagnosis: End-stage renal disease on dialysis Post-Operative Diagnosis: Same Surgery/Procedure Performed: Left stage I basilic fistula creation embossing unit operator: Yes Almond Cutting Machine Tender: Donovan Wood Tasks completed by clinical assistant: Opening, Closing, Opening & closing, Hemostasis: Electrocautery and Retracting Type of Anesthesia: Local MAC, Local and MAC RN Documented Start/Stop Times: Operation Date: 04/01/25 11:00 Case Time Into Pre-Op 04/01/25 09:14 Out of Pre-Op 04/01/25 10:29 Anesthesia Start 04/01/25 10:35 Into Room 04/01/25 10:35 Procedure Start 04/01/25 11:11 Procedure End 04/01/25 12:39 Anesthesia End 04/01/25 12:47 Out of Room 04/01/25 12:47 Into Recovery 04/01/25 12:48 Into Phase II Recovery 04/01/25 13:59 Out of Recovery 04/01/25 13:59 Out of Phase II 04/01/25 15:40 Procedure Start Time: 11:10 Procedure Stop Time: 12:40 Select all DRAINS/GRAFTS/IMPLANTS that apply: None Estimated Blood Loss: 25 Specimen collected: No Description of surgery: HPI: Patient is a 59-year-old female with end-stage renal disease currently on dialysis via a left tunneled IJ catheter. She had a previous left brachiocephalic fistula created which failed to mature. She had vein mapping which revealed adequate left upper arm basilic vein so she presents now for stage I fistula creation. Description of procedure: Upon obtaining informed consent and verification correct patient procedure site the patient was taken to the operating where she was positioned prepped and draped in usual sterile fashion. Timeouts performed moderate sedation ministered by anesthesia. Ultrasound was used to evaluated the basilic vein which was of adequate caliber throughout the upper arm and in close proximity to the brachial artery just above the antecubital crease with no median cubital branch visualized. Skin overlying the vessels just cephalad to the antecubital crease was anesthetized 1% lidocaine half percent Marcaine and an oblique incision made with a 10 blade. Bovie was used to dissect down through subcutaneous tissue and self-retaining retractors put in position. Once the basilic vein was visualized sharp dissection used dissect free proximal distal was side branches ligated with silk ties and divided. We then turned attention to the brachial artery and as we dissected it was noted that we were close proximity to the prior anastomosis with some significant scar surrounding the brachial artery. Ultimately were able to dissect this free both proximal to and distal to the prior anastomosis. Given the location of the basilic vein and the length available the plan was to perform anastomosis distal to the prior anastomosis. A right angle was used to place vessel loop proximal and distal on the brachial artery and the patient heparinized and allowed to circulate for 3 minutes. The basilic vein was then ligated distally in the field and divided. It was then dilated serially up to 3-1/2 mm and flushed with heparinized saline. The brachial artery was then occluded with Vesseloops and longitudinal arteriotomy created with 11 blade extended with Saleh scissors. The vein was then beveled to match the arteriotomy and anastomosis performed using a 6-0 Prolene in a running fashion. Prior to completing suture line vessels were backbled after completing the suture line clamps were removed and satisfactory stasis was noted. There is a palpable thrill in the vein and palpable radial pulse in the wrist. Heparin was then versed with protamine and the incision inspected for hemostasis. The incision was then closed with 3-0 Vicryl followed by 4 Monocryl and Dermabond for the skin. The patient was then awake from anesthesia taken the recovery room with anticipated discharge to her facility. Surgical Findings: Positive radial pulse, positive thrill Complications Complications: No
== END 2025-04-01 15:40 | disposition skilled nursing facility (03) ==
LOC: SDC 09:05 → AC 09:06
PROVIDERS: Anesthesiology; PCP Family Medicine; Referring Provider Surgery Trauma Surgery; Visit Provider Surgery Trauma Surgery
PROC: (CPT 36819; principal; 2025-04-01 10:45)
DX: I12.0 Hypertensive chronic kidney disease with stage 5 chronic kidney disease or end stage renal disease (principal); N18.6 End stage renal disease; E11.22 Type 2 diabetes mellitus with diabetic chronic kidney disease; E11.42 Type 2 diabetes mellitus with diabetic polyneuropathy; Z79.4 Long term (current) use of insulin; D63.1 Anemia in chronic kidney disease; E78.5 Hyperlipidemia, unspecified; G89.29 Other chronic pain; Z99.2 Dependence on renal dialysis; I25.10 Atherosclerotic heart disease of native coronary artery without angina pectoris; I25.5 Ischemic cardiomyopathy; K21.9 Gastro-esophageal reflux disease without esophagitis; Z79.82 Long term (current) use of aspirin; Z79.890 Hormone replacement therapy; Z79.899 Other long term (current) drug therapy; Z95.5 Presence of coronary angioplasty implant and graft
CPT/HCPCS: 36819; 01844; 82962; 84132; A4648; A4216; J2405

== ENCOUNTER 2025-04-03 13:45 | Outpatient (RCR) | payer MEDICARE, MEDICAID, SELFPAY ==
[2018-09-21 13:23] VITALS: BMI 29.3
[2025-03-10 00:08] VITALS: BP 127/69; PULSE 66; RESP 16; TEMP 36.6
[2025-03-12 09:47] VITALS: BP 156/71; PULSE 68; RESP 18; TEMP 35.9
--- NOTE | 2025-03-12 10:13 | PN.PCM_ITS ---
History of Present Illness Date of Service: 03/12/25 Chief Complaint: right foot ulcer left foot ulcer History of Wound: 59-year-old female with end-stage renal disease, poorly controlled type 2 diabetes history of bilateral nonhealing ulcerations requiring amputation presents for chronic right foot ulceration in setting of varus deformity and peripheral neuropathy. Patient denies constitutional symptoms. Patient notes some increased swelling today due to dressing bunching up. Patient denies pain to wound site. Patient has no other complaints. Objective Data Objective Data Vital Signs: Vital Signs Temp Pulse Resp BP O2 Del Method 96.6 F L 68 18 156/71 H Room Air 03/12/25 09:47 03/12/25 09:47 03/12/25 09:47 03/12/25 09:47 03/12/25 09:47 Oxygen Delivery Method Room Air Physical Exam Narrative Vascular: Dorsalis pedis posterior tibial pulses palpable 2 out of 4 to bilateral lower extremity compartments. Neurologic: Absent light touch protective sensation to bilateral lower extremity extending into proximal leg Dermatologic: Residual lateral ankle ulceration noted to the right ankle. This wound is down to level of subcutaneous tissue there is no evidence of deep probing or undermining. There is some fibrous tissue noted predebridement, postdebridement the wound demonstrates clean granular base. There is mild periwound erythema edema noted today. Pre and postdebridement measurements documented nursing notes. Musculoskeletal: Cavovarus deformity right lower extremity. Rectus alignment of left ankle and foot. Const alert and oriented x3 Debridement Note Debridement Note Post-Debridement Measurements and Additional Note: Post-Debridement Measurements/Treatment - Nurse 1 - General Ulcer Assessment Start: 03/12/25 09:47 Freq: Status: Active Protocol: TENNILLE.HAMRONY Activity Type Activity Date Activity User E-sign Co-sign Detail Recorded Client Recorded Date Recorded By Document 03/12/25 09:47 KW [id number] 03/12/25 09:55 KW 03/12/25 09:47 - Today's Visit Information Type of service Follow-up Visit (Physician/SILK SCREEN CUTTER ) Arrival Mode Wheelchair Patient Identification Verified (Name & Yes ) Vital Signs Temperature (97.8 F-99.1 F) 96.6 F L Temperature Source Temporal Pulse Rate (60-100) 68 Pulse Location Monitor Respiratory Rate (12-18) 18 Respiratory rate source Monitor Oxygen Delivery Method Room Air Blood Pressure (90/60-120/80) 156/71 H Blood Pressure Mean (mm Hg) 99 Source Monitor Position Semi-Fowlers Blood Pressure Location Left Arm History Since Last Visit- (Skip if this is Patient's initial visit) Have you changed medications since your No last visit? Any new allergies or adverse reactions No Had a fall/change in ADL's that may No increase risk of falls Signs or symptoms of abuse and/or No neglect since last visit Have you been in the hospital since your No last visit? Has dressing in place as prescribed No Has compression in place as prescribed No Has offloadiing in place as prescribed N/A Experienced any changes in pain level or No management Left Footwear Slipper Right Footwear Slipper Pain Scale: 0-10 Numeric Is Patient Pain Free? Yes TENNILLE - Nurse 1 - General Ulcer Measurement Start: 03/12/25 09:47 Freq: Status: Active Protocol: Activity Type Activity Date Activity User E-sign Co-sign Detail Recorded Client Recorded Date Recorded By Document 03/12/25 09:47 [email or web address] [id number] 03/12/25 09:55 03/12/25 09:47 Wound Center Nurse 1 #23 Right Lateral ankle -Current Size (cm) - Length 0.5 -Current Size (cm) - Width 0.5 -Current Size (cm) - Depth 0.1 -Total Square Cm 0.25 -Date of Last Picture (Recall this 03/12/25 field) -Epithelialization Large 67-100% -Exudate Amt Small -Exudate Type Serous -Wound Margin Distinct, Outline Attached -Granulation Amt Large (67-100%) -Granulation Quality [place],Red -Texture (Natacha-wound Skin Appearance) Assessed -Moisture (Natacha-wound Skin Appearance) Assessed -Color (Natacha-wound Skin Appearance) Assessed -Temperature (Natacha-wound Skin No Abnormality Appearance) (Pt Warm) -Tenderness on Palpation (Natacha-wound No Skin Appearance) -Ulcer Cleansing Soap and Water -Foul Odor after Cleansing No -Anesthetic Used 5% Lidocaine Gel TENNILLE - Nurse 2 - General Ulcer CM Notes Start: 03/12/25 09:47 Freq: Status: Active Protocol: Activity Type Activity Date Activity User E-sign Co-sign Detail Recorded Client Recorded Date Recorded By Document 03/12/25 10:11 LISSY [id number] 03/12/25 10:12 LISSY 03/12/25 10:11 Wound Center Nurse 2 -Time 10:12 -Correct Patient Yes -Correct Side, Site, Position Yes -Correct Procedure Yes -Procedure Performed Yes -Type of Procedure Debridement -Clinical Debridement Subcutaneous -Tissue Removed Subcutaneous -Post Debridement (cm) - Length 0.3 -Post Debridement (cm) - Width 0.4 -Post Debridement (cm) - Depth 0.1 -Total Square (Post) (cm) 0.12 -Area of Debridement (cm) - Length 0.3 -Area of Debridement (cm) - Width 0.4 -Total Square (Area) (cm) 0.12 -Tunneling No -Undermining/Tunneling No -Circular Undermining No -Wound/Ulcer Outcome Not Healed -Ulcer Cleansing Rinsed/ Irrigated with Saline -Foul Odor after Cleansing No -Bioengineered Tissue No -Bleeding Controlled with Pressure -Treatment Response Procedure Tolerated Well -Offloading No -Debridement - Subq, 1st 20sq cm Yes Pain Scale: 0-10 Numeric Is Patient Pain Free? Yes Assessment/Plan Assessment/Plan (1) Non-pressure chronic ulcer of other part of right foot with necrosis of bone: CODE(S): L97.514 - Non-pressure chronic ulcer of other part of right foot with necrosis of bone PLAN: Exam performed. Patient is awaiting AV fistula, this is delayed due to nonhealing ulceration to right lateral ankle. [place] boot ordered for right today Right lateral ankle slightly improved in size today. Resolved cellulitis right ankle. Right lateral ankle wound was excisionally debrided down to including level of subcutaneous tissue of all nonviable tissue using a 5 mm dermal curette. Hemostasis obtained with light compression. Topical anesthesia used. Patient tolerated procedure well. Pre and postdebridement measurements documented nursing notes. Dressed with sbetadine, DSD/MYLA patient to be fitted for [place] boot today Patient is a poor surgical candidate due to diabetic neuropathy, end-stage renal disease, noncompliance, poor nutritional status for right lower extremity reconstruction; therefore, upon wound healing plan will be for custom bracing of the right lower extremity due to severe varus deformity with loss of peroneus brevis tendon. If there is prolonged nonhealing or development of acute life/limb threatening infection patient may require below-knee amputation to right lower extremity. Patient is understanding of this. Today I discussed long-term bracing via [place] boot versus Charcot reconstruction versus below-knee amputation right lower extremity. Since patient has poor wound healing potential patient is poor candidate for TTC fusion. Will plan for [place] boot upon wound healing. Next if that were to fail patient will require below-knee amputation. Patient will follow-up on a weekly basis. (2) Type 2 diabetes mellitus with diabetic polyneuropathy: CODE(S): E11.42 - Type 2 diabetes mellitus with diabetic polyneuropathy QUALIFIERS: Diabetes mellitus fdc insulin use: with fdc use Qualified Code(s): E11.42 - Type 2 diabetes mellitus with diabetic polyneuropathy; Z79.4 - intermediate teacher (current) use of insulin (3) Varus deformity, not elsewhere classified, right ankle: CODE(S): M21.171 - Varus deformity, not elsewhere classified, right ankle
--- NOTE | 2025-03-13 09:16 | WC ---
PHOTO 03/12/25 RIGHT LATERAL ANKLE
[2025-03-26 09:41] VITALS: BP 177/90; PULSE 67; RESP 16; TEMP 36.3
--- NOTE | 2025-03-26 10:03 | PCM.WC.PN ---
History of Present Illness Date of Service: 03/26/25 Chief Complaint: right foot ulcer left foot ulcer History of Wound: 59-year-old female with end-stage renal disease, poorly controlled type 2 diabetes history of bilateral nonhealing ulcerations requiring amputation presents for chronic right foot ulceration in setting of varus deformity and peripheral neuropathy. Patient denies constitutional symptoms. Patient notes some increased swelling today due to dressing bunching up. Patient denies pain to wound site. Patient has no other complaints. Objective Data Objective Data Vital Signs: Vital Signs Temp Pulse Resp BP O2 Del Method 97.3 F L 67 16 177/90 H Room Air 03/26/25 09:41 03/26/25 09:41 03/26/25 09:41 03/26/25 09:41 03/26/25 09:41 Oxygen Delivery Method Room Air Physical Exam Narrative Vascular: Dorsalis pedis posterior tibial pulses palpable 2 out of 4 to bilateral lower extremity compartments. Neurologic: Absent light touch protective sensation to bilateral lower extremity extending into proximal leg Dermatologic: Residual lateral ankle ulceration noted to the right ankle. This wound is down to level of subcutaneous tissue there is no evidence of deep probing or undermining. There is some fibrous tissue noted predebridement, postdebridement the wound demonstrates clean granular base. There is mild periwound erythema edema noted today. Pre and postdebridement measurements documented nursing notes. Musculoskeletal: Cavovarus deformity right lower extremity. Rectus alignment of left ankle and foot. Const alert and oriented x3 Debridement Note Debridement Note Post-Debridement Measurements and Additional Note: Post-Debridement Measurements/Treatment - Nurse 1 - General Ulcer Assessment Start: 03/12/25 09:47 Freq: Status: Active Protocol: TENNILLE.HARMONY Activity Type Activity Date Activity User E-sign Co-sign Detail Recorded Client Recorded Date Recorded By Document 03/12/25 09:47 KW [id number] 03/12/25 09:55 KW Document 03/26/25 09:41 KW [id number] 03/26/25 09:42 KW 03/12/25 03/26/25 09:47 09:41 - Today's Visit Information Type of service Follow-up Visit Follow-up Visit (Physician/AUTOMATIC CHIEF (Physician/AUTOMATIC CHIEF ) ) Arrival Mode Wheelchair Wheelchair Patient Identification Verified (Name & Yes Yes ) Vital Signs Temperature (97.8 F-99.1 F) 96.6 F L 97.3 F L Temperature Source Temporal Temporal Pulse Rate (60-100) 68 67 Pulse Location Monitor Monitor Respiratory Rate (12-18) 18 16 Respiratory rate source Monitor Observation Oxygen Delivery Method Room Air Room Air Blood Pressure (90/60-120/80) 156/71 H 177/90 H Blood Pressure Mean (mm Hg) 99 119 Source Monitor Monitor Position Semi-Fowlers Semi-Fowlers Blood Pressure Location Left Arm Right Arm History Since Last Visit- (Skip if this is Patient's initial visit) Have you changed medications since your No No last visit? Any new allergies or adverse reactions No No Had a fall/change in ADL's that may No No increase risk of falls Signs or symptoms of abuse and/or No No neglect since last visit Have you been in the hospital since your No No last visit? Has dressing in place as prescribed No Yes Has compression in place as prescribed No No Has offloadiing in place as prescribed N/A N/A Experienced any changes in pain level or No No management Left Footwear Slipper Slipper Right Footwear Slipper Slipper Pain Scale: 0-10 Numeric Is Patient Pain Free? Yes Yes WC - Nurse 1 - General Ulcer Measurement Start: 03/12/25 09:47 Freq: Status: Active Protocol: Activity Type Activity Date Activity User E-sign Co-sign Detail Recorded Client Recorded Date Recorded By Document 03/12/25 09:47 [id number] 03/12/25 09:55 KW Document 03/26/25 09:41 [id number] 03/26/25 09:42 KW 03/12/25 03/26/25 09:47 09:41 Wound Center Nurse 1 #23 Right Lateral ankle -Current Size (cm) - Length 0.5 0.1 -Current Size (cm) - Width 0.5 0.1 -Current Size (cm) - Depth 0.1 0 -Total Square Cm 0.25 0.01 -Date of Last Picture (Recall this 03/12/25 03/26/25 field) -Epithelialization Large 67-100% Large 67-100% -Exudate Amt Small None Present -Exudate Type Serous -Wound Margin Distinct, Indistinct, Non Outline -Visible Attached -Granulation Amt Large (67-100%) -Granulation Quality [place],Red -Texture (Natacha-wound Skin Appearance) Assessed Assessed -Moisture (Natacha-wound Skin Appearance) Assessed Assessed -Color (Natacha-wound Skin Appearance) Assessed Assessed -Temperature (Natacha-wound Skin No Abnormality No Abnormality Appearance) (Pt Warm) (Pt Warm) -Tenderness on Palpation (Natacha-wound No No Skin Appearance) -Ulcer Cleansing Soap and Water Rinsed/ Irrigated with Saline -Foul Odor after Cleansing No No -Anesthetic Used 5% Lidocaine 5% Lidocaine Gel Gel - Nurse 2 - General Ulcer CM Notes Start: 03/12/25 09:47 Freq: Status: Active Protocol: Activity Type Activity Date Activity User E-sign Co-sign Detail Recorded Client Recorded Date Recorded By Document 03/12/25 10:11 [id number] 03/12/25 10:12 Document 03/26/25 09:55 [id number] 03/26/25 09:56 03/12/25 03/26/25 10:11 09:55 Wound Center Nurse 2 #23 Right Lateral ankle -Time 10:12 09:56 -Correct Patient Yes Yes -Correct Side, Site, Position Yes Yes -Correct Procedure Yes Yes -Procedure Performed Yes Yes -Type of Procedure Debridement Debridement -Clinical Debridement Subcutaneous Subcutaneous -Tissue Removed Subcutaneous Subcutaneous -Post Debridement (cm) - Length 0.3 0.5 -Post Debridement (cm) - Width 0.4 0.5 -Post Debridement (cm) - Depth 0.1 0.1 -Total Square (Post) (cm) 0.12 0.25 -Area of Debridement (cm) - Length 0.3 0.5 -Area of Debridement (cm) - Width 0.4 0.5 -Total Square (Area) (cm) 0.12 0.25 -Tunneling No No -Undermining/Tunneling No No -Circular Undermining No No -Wound/Ulcer Outcome Not Healed Not Healed -Ulcer Cleansing Rinsed/ Rinsed/ Irrigated with Irrigated with Saline Saline -Foul Odor after Cleansing No No -Bioengineered Tissue No No -Bleeding Controlled with Pressure Pressure -Treatment Response Procedure Procedure Tolerated Well Tolerated Well -Offloading No No -Debridement - Subq, 1st 20sq cm Yes Yes Pain Scale: 0-10 Numeric Is Patient Pain Free? Yes Yes TENNILLE - Nurse 3 - General Ulcer D/C NN Start: 03/12/25 09:47 Freq: Status: Active Protocol: Activity Type Activity Date Activity User E-sign Co-sign Detail Recorded Client Recorded Date Recorded By Document 03/12/25 10:20 [facility] [id number] 03/12/25 10:20 [facility] 03/12/25 10:20 Wound Care Center Nurse 3 #23 Right Lateral ankle -Ulcer Cleansing Rinsed/ Irrigated with Saline -Foul Odor after Cleansing No -Primary Dressing Applied Silicone Border Foam 4x4 -Other Dressing betadine -Primary Dressing Covered/Secured with Dry Gauze -Silicone Border Foam 4x4 1 RLE -Tubular Bandage Single Layer -Size of Tubigrip Used Size D -Size D ($) 1 Treatment Response Procedure Tolerated Well Pain Scale: 0-10 Numeric Is Patient Pain Free? Yes WC - Visit Discharge Discharge Condition Stable Ambulatory Status Wheelchair Transportation [facility] Type Skilled Nursing Care Facility Assessment/Plan Assessment/Plan (1) Non-pressure chronic ulcer of other part of right foot with necrosis of bone: CODE(S): L97.514 - Non-pressure chronic ulcer of other part of right foot with necrosis of bone PLAN: Exam performed. Patient is awaiting AV fistula, this is delayed due to nonhealing ulceration to right lateral ankle. [place] boot ordered for right today Right lateral ankle slightly improved in size today. Resolved cellulitis right ankle. Right lateral ankle wound was excisionally debrided down to including level of subcutaneous tissue of all nonviable tissue using a 5 mm dermal curette. Hemostasis obtained with light compression. Topical anesthesia used. Patient tolerated procedure well. Pre and postdebridement measurements documented nursing notes. Dressed with sbetadine, DSD/MYLA patient to be fitted for [place] boot today Patient is a poor surgical candidate due to diabetic neuropathy, end-stage renal disease, noncompliance, poor nutritional status for right lower extremity reconstruction; therefore, upon wound healing plan will be for custom bracing of the right lower extremity due to severe varus deformity with loss of peroneus brevis tendon. If there is prolonged nonhealing or development of acute life/limb threatening infection patient may require below-knee amputation to right lower extremity. Patient is understanding of this. Today I discussed long-term bracing via [place] boot versus Charcot reconstruction versus below-knee amputation right lower extremity. Since patient has poor wound healing potential patient is poor candidate for TTC fusion. Will plan for [place] boot upon wound healing. Next if that were to fail patient will require below-knee amputation. Patient will follow-up on a weekly basis. (2) Type 2 diabetes mellitus with diabetic polyneuropathy: CODE(S): E11.42 - Type 2 diabetes mellitus with diabetic polyneuropathy QUALIFIERS: Diabetes mellitus longterm insulin use: with longterm use Qualified Code(s): E11.42 - Type 2 diabetes mellitus with diabetic polyneuropathy; Z79.4 - senior care (current) use of insulin (3) Varus deformity, not elsewhere classified, right ankle: CODE(S): M21.171 - Varus deformity, not elsewhere classified, right ankle
--- NOTE | 2025-03-26 10:04 | PCM.WC.PN ---
History of Present Illness Date of Service: 03/26/25 Chief Complaint: right foot ulcer left foot ulcer History of Wound: 59-year-old female with end-stage renal disease, poorly controlled type 2 diabetes history of bilateral nonhealing ulcerations requiring amputation presents for chronic right foot ulceration in setting of varus deformity and peripheral neuropathy. Patient denies constitutional symptoms. Patient notes some increased swelling today due to dressing bunching up. Patient denies pain to wound site. Patient has no other complaints. Objective Data Objective Data Vital Signs: Vital Signs Temp Pulse Resp BP O2 Del Method 97.3 F L 67 16 177/90 H Room Air 03/26/25 09:41 03/26/25 09:41 03/26/25 09:41 03/26/25 09:41 03/26/25 09:41 Oxygen Delivery Method Room Air Physical Exam Narrative Vascular: Dorsalis pedis posterior tibial pulses palpable 2 out of 4 to bilateral lower extremity compartments. Neurologic: Absent light touch protective sensation to bilateral lower extremity extending into proximal leg Dermatologic: Residual lateral ankle ulceration noted to the right ankle. This wound is down to level of subcutaneous tissue there is no evidence of deep probing or undermining. There is some fibrous tissue noted predebridement, postdebridement the wound demonstrates clean granular base. There is mild periwound erythema edema noted today. Pre and postdebridement measurements documented nursing notes. Musculoskeletal: Cavovarus deformity right lower extremity. Rectus alignment of left ankle and foot. Const alert and oriented x3 Debridement Note Debridement Note Post-Debridement Measurements and Additional Note: Post-Debridement Measurements/Treatment - Nurse 1 - General Ulcer Assessment Start: 03/12/25 09:47 Freq: Status: Active Protocol: TENNILLE.HARMONY Activity Type Activity Date Activity User E-sign Co-sign Detail Recorded Client Recorded Date Recorded By Document 03/12/25 09:47 KW [id number] 03/12/25 09:55 KW Document 03/26/25 09:41 KW [id number] 03/26/25 09:42 KW 03/12/25 03/26/25 09:47 09:41 - Today's Visit Information Type of service Follow-up Visit Follow-up Visit (Physician/LEAD IOS DEVELOPER (Physician/LEAD IOS DEVELOPER ) ) Arrival Mode Wheelchair Wheelchair Patient Identification Verified (Name & Yes Yes ) Vital Signs Temperature (97.8 F-99.1 F) 96.6 F L 97.3 F L Temperature Source Temporal Temporal Pulse Rate (60-100) 68 67 Pulse Location Monitor Monitor Respiratory Rate (12-18) 18 16 Respiratory rate source Monitor Observation Oxygen Delivery Method Room Air Room Air Blood Pressure (90/60-120/80) 156/71 H 177/90 H Blood Pressure Mean (mm Hg) 99 119 Source Monitor Monitor Position Semi-Fowlers Semi-Fowlers Blood Pressure Location Left Arm Right Arm History Since Last Visit- (Skip if this is Patient's initial visit) Have you changed medications since your No No last visit? Any new allergies or adverse reactions No No Had a fall/change in ADL's that may No No increase risk of falls Signs or symptoms of abuse and/or No No neglect since last visit Have you been in the hospital since your No No last visit? Has dressing in place as prescribed No Yes Has compression in place as prescribed No No Has offloadiing in place as prescribed N/A N/A Experienced any changes in pain level or No No management Left Footwear Slipper Slipper Right Footwear Slipper Slipper Pain Scale: 0-10 Numeric Is Patient Pain Free? Yes Yes WC - Nurse 1 - General Ulcer Measurement Start: 03/12/25 09:47 Freq: Status: Active Protocol: Activity Type Activity Date Activity User E-sign Co-sign Detail Recorded Client Recorded Date Recorded By Document 03/12/25 09:47 [id number] 03/12/25 09:55 KW Document 03/26/25 09:41 [id number] 03/26/25 09:42 KW 03/12/25 03/26/25 09:47 09:41 Wound Center Nurse 1 #23 Right Lateral ankle -Current Size (cm) - Length 0.5 0.1 -Current Size (cm) - Width 0.5 0.1 -Current Size (cm) - Depth 0.1 0 -Total Square Cm 0.25 0.01 -Date of Last Picture (Recall this 03/12/25 03/26/25 field) -Epithelialization Large 67-100% Large 67-100% -Exudate Amt Small None Present -Exudate Type Serous -Wound Margin Distinct, Indistinct, Non Outline -Visible Attached -Granulation Amt Large (67-100%) -Granulation Quality [place],Red -Texture (Natacha-wound Skin Appearance) Assessed Assessed -Moisture (Natacha-wound Skin Appearance) Assessed Assessed -Color (Natacha-wound Skin Appearance) Assessed Assessed -Temperature (Natacha-wound Skin No Abnormality No Abnormality Appearance) (Pt Warm) (Pt Warm) -Tenderness on Palpation (Natacha-wound No No Skin Appearance) -Ulcer Cleansing Soap and Water Rinsed/ Irrigated with Saline -Foul Odor after Cleansing No No -Anesthetic Used 5% Lidocaine 5% Lidocaine Gel Gel - Nurse 2 - General Ulcer CM Notes Start: 03/12/25 09:47 Freq: Status: Active Protocol: Activity Type Activity Date Activity User E-sign Co-sign Detail Recorded Client Recorded Date Recorded By Document 03/12/25 10:11 [id number] 03/12/25 10:12 Document 03/26/25 09:55 [id number] 03/26/25 09:56 03/12/25 03/26/25 10:11 09:55 Wound Center Nurse 2 #23 Right Lateral ankle -Time 10:12 09:56 -Correct Patient Yes Yes -Correct Side, Site, Position Yes Yes -Correct Procedure Yes Yes -Procedure Performed Yes Yes -Type of Procedure Debridement Debridement -Clinical Debridement Subcutaneous Subcutaneous -Tissue Removed Subcutaneous Subcutaneous -Post Debridement (cm) - Length 0.3 0.5 -Post Debridement (cm) - Width 0.4 0.5 -Post Debridement (cm) - Depth 0.1 0.1 -Total Square (Post) (cm) 0.12 0.25 -Area of Debridement (cm) - Length 0.3 0.5 -Area of Debridement (cm) - Width 0.4 0.5 -Total Square (Area) (cm) 0.12 0.25 -Tunneling No No -Undermining/Tunneling No No -Circular Undermining No No -Wound/Ulcer Outcome Not Healed Not Healed -Ulcer Cleansing Rinsed/ Rinsed/ Irrigated with Irrigated with Saline Saline -Foul Odor after Cleansing No No -Bioengineered Tissue No No -Bleeding Controlled with Pressure Pressure -Treatment Response Procedure Procedure Tolerated Well Tolerated Well -Offloading No No -Debridement - Subq, 1st 20sq cm Yes Yes Pain Scale: 0-10 Numeric Is Patient Pain Free? Yes Yes TENNILLE - Nurse 3 - General Ulcer D/C NN Start: 03/12/25 09:47 Freq: Status: Active Protocol: Activity Type Activity Date Activity User E-sign Co-sign Detail Recorded Client Recorded Date Recorded By Document 03/12/25 10:20 [facility] [id number] 03/12/25 10:20 [facility] 03/12/25 10:20 Wound Care Center Nurse 3 #23 Right Lateral ankle -Ulcer Cleansing Rinsed/ Irrigated with Saline -Foul Odor after Cleansing No -Primary Dressing Applied Silicone Border Foam 4x4 -Other Dressing betadine -Primary Dressing Covered/Secured with Dry Gauze -Silicone Border Foam 4x4 1 RLE -Tubular Bandage Single Layer -Size of Tubigrip Used Size D -Size D ($) 1 Treatment Response Procedure Tolerated Well Pain Scale: 0-10 Numeric Is Patient Pain Free? Yes WC - Visit Discharge Discharge Condition Stable Ambulatory Status Wheelchair Transportation [facility] Type Alf Care Facility Assessment/Plan Assessment/Plan (1) Non-pressure chronic ulcer of other part of right foot with necrosis of bone: CODE(S): L97.514 - Non-pressure chronic ulcer of other part of right foot with necrosis of bone PLAN: Exam performed. Patient is awaiting AV fistula, this is delayed due to nonhealing ulceration to right lateral ankle. [place] boot ordered for right today Right lateral ankle slightly improved in size today. Resolved cellulitis right ankle. Right lateral ankle wound was excisionally debrided down to including level of subcutaneous tissue of all nonviable tissue using a 5 mm dermal curette. Hemostasis obtained with light compression. Topical anesthesia used. Patient tolerated procedure well. Pre and postdebridement measurements documented nursing notes. Dressed with sbetadine, DSD/MYLA patient to be fitted for [place] boot today Patient is a poor surgical candidate due to diabetic neuropathy, end-stage renal disease, noncompliance, poor nutritional status for right lower extremity reconstruction; therefore, upon wound healing plan will be for custom bracing of the right lower extremity due to severe varus deformity with loss of peroneus brevis tendon. If there is prolonged nonhealing or development of acute life/limb threatening infection patient may require below-knee amputation to right lower extremity. Patient is understanding of this. Today I discussed long-term bracing via [place] boot versus Charcot reconstruction versus below-knee amputation right lower extremity. Since patient has poor wound healing potential patient is poor candidate for TTC fusion. Will plan for [place] boot upon wound healing. Next if that were to fail patient will require below-knee amputation. Patient will follow-up on a weekly basis. (2) Type 2 diabetes mellitus with diabetic polyneuropathy: CODE(S): E11.42 - Type 2 diabetes mellitus with diabetic polyneuropathy QUALIFIERS: Diabetes mellitus mcc insulin use: with mcc use Qualified Code(s): E11.42 - Type 2 diabetes mellitus with diabetic polyneuropathy; Z79.4 - [facility] (current) use of insulin (3) Varus deformity, not elsewhere classified, right ankle: CODE(S): M21.171 - Varus deformity, not elsewhere classified, right ankle
--- NOTE | 2025-03-27 08:38 | WC ---
PHOTO 03/26/25 RIGHT LATERAL ANKLE
[2025-04-03 13:50] VITALS: BP 177/87; PULSE 85; RESP 18; TEMP 526.1; TEMP 979
--- NOTE | 2025-04-03 15:29 | HP.PCM_ITS ---
History of Present Illness Date of Service: 04/03/25 Chief Complaint: right foot ulcer left foot ulcer History of Wound: 59-year-old female with end-stage renal disease, poorly controlled type 2 diabetes history of bilateral nonhealing ulcerations requiring amputation presents for chronic right foot ulceration in setting of varus deformity and peripheral neuropathy. Patient denies constitutional symptoms. Patient notes some increased swelling today due to dressing bunching up. Patient denies pain to wound site. Patient has no other complaints. Progress of Wound: Patient is a 59-year-old diabetic female with end-stage renal disease presenting to clinic today with a chief complaint of bilateral full-thickness wound secondary to trauma. Patient states that she was trying to leave her nursing facility in her wheelchair and got her feet left on the ground. She has multiple wounds to the lesser digits to the bilateral extremity as well as a left leg ruiz wound as well as a right lateral ankle wound. All wounds are stable. Her blood sugars well-controlled. She does have history of Charcot foot deformity to the right lower extremity. Denies constitutional symptoms. No other pedal complaints at this time. [facility] Medical History History of stress test History of echocardiogram History of transesophageal echocardiography (HONG) History of TIA (transient ischemic attack) History of myocardial infarction Diabetes mellitus type 2 with complications Non-pressure chronic ulcer of ankle with fat layer exposed Secondary hyperparathyroidism Non-pressure chronic ulcer of right ankle with necrosis of muscle Non-pressure chronic ulcer of left ankle with necrosis of muscle Adverse effect of synthetic cannabinoids, initial encounter [place] coma scale score 13-15, at arrival to emergency department Acute alteration in mental status Short Achilles tendon (acquired), left ankle Short Achilles tendon (acquired), right ankle Acquired cavovarus deformity of left foot Acquired cavovarus deformity of right foot Type 2 diabetes mellitus with diabetic polyneuropathy Adult failure to thrive ESRD (end stage renal disease) on dialysis Drowsiness Mental status, decreased Carotid artery stenosis MSSA bacteremia ESRD on hemodialysis Osteomyelitis Anemia in chronic illness Type 2 diabetes mellitus Foot osteomyelitis, left Chronic renal disease, stage 4, severely decreased glomerular filtration rate (GFR) between 15-29 mL/min/1.73 square meter Acute on chronic anemia Chronic ulcer of right foot with necrosis of bone Chronic kidney disease, stage 4 (severe) Diabetes mellitus with diabetic polyneuropathy Diabetic foot ulcers Chronic kidney disease, stage 3b Charcot's joint, right ankle and foot Charcot's joint, left ankle and foot Cellulitis Acute lumbar radiculopathy Essential hypertension Adult failure to thrive COVID-19 (08/28/21) Chronic ulcer of right leg with fat layer exposed Ulcer of left foot with fat layer exposed Chronic ulcer of right foot with fat layer exposed Hyperparathyroidism, secondary renal Iron deficiency anemia Bilateral edema of lower extremity Chronic foot pain Non-pressure chronic 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 layer exposed Debility Charcot's joint of right foot Diabetes Non-smoker Myocardial infarct Hypertension TIA (transient ischemic attack) Amputation foot, bilat Non-pressure chronic ulcer of other part of left foot with fat layer exposed 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 Ulcer of left foot with necrosis of muscle Ulcer of left foot with muscle involvement without evidence of necrosis Anxiety and depression Diabetic infection of left foot Delayed wound healing Non-compliance Diabetic polyneuropathy Ischemic cardiomyopathy Obesity (BMI 30.0-34.9) Acquired varus deformity of left foot Acquired varus deformity of right foot Atherosclerosis of [place] coronary artery of [place] heart without angina pectoris Hemoglobin A1c greater than 9.0% NSTEMI (non-ST elevated myocardial infarction) (09/20/18) GERD (gastroesophageal reflux disease) HLD (hyperlipidemia) Back pain, chronic RLS (restless legs syndrome) Home Medications ?Medication ?Instructions ?Recorded ?Last Taken ?Type paroxetine HCl 20 mg tablet 20 mg PO QHS DEPRESSION 04/07/22 History ascorbic acid (vitamin C) 500 mg 500 mg PO BID supplem ent 05/05/22 Unknown History tablet (Vitamin C) pantoprazole 40 mg tablet,delayed 40 mg PO BIDCM GERD 07/19/22 Unknown History release folic acid 800 mcg tablet 0.8 mg PO DAILY supplement 0 12/16/23 Unknown History levothyroxine 25 mcg tablet 25 mcg PO DAILY thyroid Unknown History aspirin 81 mg capsule 81 mg PO DAILY blood thinner #30 12/26/23 Unknown Rx caps atorvastatin 40 mg tablet 40 mg PO DAILY cholesterol 0 03/18/24 06/26/24 History acetaminophen 325 mg tablet 650 mg PO Q6H PRN fever or pain 07/09/24 Unknown History insulin lispro 100 unit/mL See Protocol subcut TIDAC b lood 09/13/24 Unknown History subcutaneous pen (Humalog KwikPen sugar (U-100) Insulin) L.acidophil,salivari-Bifido 1 cap PO 4X/DAY #0 caps Unknown Rx bifidum-Strep thermoph 175 mg capsule nutrition tx glu 120 ml PO TIDCM #0 mL Unknown Rx intol,lac-free,soy-fiber 0.06 gram-1.2 kcal/mL liquid (Glucerna 1.2 Howie) carvedilol 25 mg tablet 12.5 mg PO QHS blood pressur e 12/06/24 Unknown History gabapentin 100 mg capsule 100 mg PO TID pain 12/06/24 Unknown History levetiracetam 500 mg tablet 250 mg PO MOWEFR 12/06/24 Unknown History levetiracetam 500 mg tablet 500 mg PO BID 12/06/24 Unk nown History ropinirole 0.25 mg tablet 0.25 mg PO QHS 12/06/24 Unkn own History artificial 1 drp ophthalmic (eye) QHS 0 02/28/25 Unknown History tears(dancqmo-huissrht-gmxwvdk) 0.1 %-0.3 %-0.2 % eye drops (GenTeal Tears Moderate) hydrocortisone 1 % topical cream 1 applic topical BID PRN itching 02/28/25 Unknown History (Cortisone (hydrocortisone)) hydroxyzine HCl 25 mg tablet 25 mg PO TID PRN itching 02/28/25 Unknown History methadone 5 mg tablet 2.5 mg PO TID 02/28/25 Unkno wn History ondansetron HCl 4 mg tablet 4 mg PO Q8H 02/28/25 Unkno wn History carvedilol 12.5 mg tablet (Coreg) 12.5 mg PO .TUTHFRSA GRAY 03/18/25 Unknown History hydralazine 100 mg tablet 100 mg PO BID 03/18/25 Unkno wn History lorazepam 0.5 mg tablet 0.5 mg PO DAILY anxiety 07/04 Unknown History melatonin 5 mg capsule 5 mg PO QHS 03/18/25 Unknown History sucralfate 1 gram tablet 1 g PO ACHS indigestion 07/04 Unknown History Allergy/AdvReac Type Severity Reaction Status Date / Time fentanyl Allergy Other Verified 04/01/25 09:46 oxycodone (From OxyContin) Allergy sob Verified 04/01/25 09:46 Penicillins Allergy swelling Verified 04/01/25 09:46 in throat vancomycin Allergy Itching Verified 04/01/25 09:46 metronidazole AdvReac Nausea Verified 04/01/25 09:46 Family History Mother Diabetes CVA (cerebral vascular accident) Brother CAD (coronary artery disease) CABG X 3 Cancer testicular Diabetes Brother CAD (coronary artery disease) CABG X3 Diabetes Brother CAD (coronary artery disease) Stents Diabetes Sister CAD (coronary artery disease) CABG x 3 CVA (cerebral vascular accident) Diabetes Surgical History History of cardiac catheterization History of History of foot surgery History of bilateral carpal tunnel release History of rotator cuff surgery History of coronary artery stent placement (12/31/20) Social History household members: none number of children: 2 current occupational status: disabled Smoking Status: Never smoker alcohol intake: never substance use type: does not use caffeine: Yes Type: carbonated beverages Number of servings: 2 Vital Signs Vital Signs Vital Signs: 04/03/25 13:50 Temperature 979 F H Temperature Source Temporal Pulse Rate 85 Respiratory Rate 18 Blood Pressure 177/87 H Blood Pressure Mean 117 Blood Pressure Source Monitor Physical Exam Narrative Vascular: DP and PT pulses are faintly palpable to the bilateral lower extremity. CFT is brisk. Skin temperature gradient is warm to warm from proximal ankle to distal digit bilateral. No increase in erythema or warmth. Neurological: Light touch is intact. Protective station is absent. Dermatological: Evidence of full-thickness wound appreciated to the right ankle measuring 1.0 x 1.5 x 0.1 cm. Full-thickness wound to the right third digit measuring 1.0 x 1.0 x 0.1 cm. Full-thickness wound to the right fourth digit measuring 1.4 x 1.2 x 0.1 cm. All wound bases are granular in nature. No sign of infection. Evidence of full-thickness wound appreciated to the left lower leg measuring 2.2 x 1.0 x 0.1 cm. Full-thickness wound to the left third digit measuring 1.0 x 0.8 x 0.1 cm. Full-thickness wound to the left great toe measuring 0.7 x 0.6 x 0.1 cm. All wound bases are granular in nature. No sign of infection. Excisional debridement down to and including subcutaneous tissue of the right ankle full-thickness wound with a number 3 mm dermal curette done without incident. Predebridement measurement was 0.8 x 1.2 x 0.1 cm. Postdebridement measurement is 1.0 x 1.5 x 0.1 cm. Excisional debridement down to and including subcutaneous tissue with a number 3 mm dermal curette to the right third digit done without incident. Predebridement measurement was 0.8 x 0.8 x 0.1 cm. Postdebridement measurement is 1.0 x 1.0 x 0.1 cm. Excisional debridement down to and including subcutaneous tissue with a number 3 mm dermal curette to the right fourth digit done without incident. Predebridement measurement was 1.2 x 1.1 x 0.1 cm. Postdebridement measurement is 1.4 x 1.2 x 0.1 cm. Musculoskeletal: Evidence of varus contracture deformity to the right lower extremity. Evidence of rocker-bottom foot secondary to Charcot to foot deformity. No pain on palpation to multiple full-thickness wound to the bilateral extremity. Debridement Note Debridement Note Debridement Free Text: Excisional debridement down to and including subcutaneous tissue of the right ankle full-thickness wound with a number 3 mm dermal curette done without incident. Predebridement measurement was 0.8 x 1.2 x 0.1 cm. Postdebridement measurement is 1.0 x 1.5 x 0.1 cm. Excisional debridement down to and including subcutaneous tissue with a number 3 mm dermal curette to the right third digit done without incident. Predebridement measurement was 0.8 x 0.8 x 0.1 cm. Postdebridement measurement is 1.0 x 1.0 x 0.1 cm. Excisional debridement down to and including subcutaneous tissue with a number 3 mm dermal curette to the right fourth digit done without incident. Predebridement measurement was 1.2 x 1.1 x 0.1 cm. Postdebridement measurement is 1.4 x 1.2 x 0.1 cm. Post-Debridement Measurements and Additional Note: Post-Debridement Measurements/Treatment - Nurse 1 - General Ulcer Assessment Start: 03/12/25 09:47 Freq: Status: Active Protocol: SHANICE Activity Type Activity Date Activity User E-sign Co-sign Detail Recorded Client Recorded Date Recorded By Document 03/12/25 09:47 KW [id number] 03/12/25 09:55 KW Document 03/26/25 09:41 KW [id number] 03/26/25 09:42 KW Document 04/03/25 13:50 DL [id number] 04/03/25 14:03 DL 03/12/25 03/26/25 04/03/25 09:47 09:41 13:50 - Today's Visit Information Type of service Follow-up Visit Follow-up Visit Follow-up Visit (Physician/AUTOMOTIVE FLEET SUPERVISOR (Physician/AUTOMOTIVE FLEET SUPERVISOR (Physician/AUTOMOTIVE FLEET SUPERVISOR ) ) ) Arrival Mode Wheelchair Wheelchair Wheelchair Transfer Assistance None Patient Identification Verified (Name & Yes Yes Yes ) Patient Requires Transmission-Based No Precautions Safety Precautions Fall Prevention Vital Signs Temperature (97.8 F-99.1 F) 96.6 F L 97.3 F L 979 F H Temperature Source Temporal Temporal Temporal Pulse Rate (60-100) 68 67 85 Pulse Location Monitor Monitor Monitor Respiratory Rate (12-18) 18 16 18 Respiratory rate source Monitor Observation Oxygen Delivery Method Room Air Room Air Blood Pressure (90/60-120/80) 156/71 H 177/90 H 177/87 H Blood Pressure Mean (mm Hg) 99 119 117 Source Monitor Monitor Monitor Position Semi-Fowlers Semi-Fowlers Blood Pressure Location Left Arm Right Arm History Since Last Visit- (Skip if this is Patient's initial visit) Have you changed medications since your No No No last visit? Any new allergies or adverse reactions No No No Had a fall/change in ADL's that may No No No increase risk of falls Signs or symptoms of abuse and/or No No No neglect since last visit Have you been in the hospital since your No No No last visit? Has dressing in place as prescribed No Yes Yes Has compression in place as prescribed No No Yes Has offloadiing in place as prescribed N/A N/A Yes Experienced any changes in pain level or No No No management Left Footwear Slipper Slipper Right Footwear Slipper Slipper Pain Scale: 0-10 Numeric Is Patient Pain Free? Yes Yes No WC - Nurse 1 - General Ulcer Measurement Start: 03/12/25 09:47 Freq: Status: Active Protocol: Activity Type Activity Date Activity User E-sign Co-sign Detail Recorded Client Recorded Date Recorded By Document 03/12/25 09:47 KW [id number] 03/12/25 09:55 KW Document 03/26/25 09:41 KW [id number] 03/26/25 09:42 KW Document 04/03/25 13:50 DL [id number] 04/03/25 14:03 DL 03/12/25 03/26/25 04/03/25 09:47 09:41 13:50 Wound Center Nurse 1 #26 R 4th toe -Current Size (cm) - Length 2.5 -Current Size (cm) - Width 1.3 -Current Size (cm) - Depth 0.1 -Total Square Cm 3.25 -Photo Taken Yes -Exudate Type Serosanguineous -Wound Margin Distinct, Outline Attached -Granulation Amt Large (67-100%) -Granulation Quality Pale,[place] -Necrosis Amt None Present (0 %) -Structure Exposed N/A -Texture (Natacha-wound Skin Appearance) Localized Edema -Moisture (Natacha-wound Skin Appearance) Maceration -Color (Natacha-wound Skin Appearance) No Abnormality -Temperature (Natacha-wound Skin No Abnormality Appearance) (Pt Warm) -Tenderness on Palpation (Natacha-wound No Skin Appearance) -Ulcer Cleansing Soap and Water -Foul Odor after Cleansing No -Anesthetic Used 4% Lidocaine Solution # 25 R 3rd toe -Current Size (cm) - Length 1.8 -Current Size (cm) - Width 1 -Current Size (cm) - Depth 0.1 -Total Square Cm 1.8 -Photo Taken Yes -Exudate Amt Medium -Exudate Type Serosanguineous -Wound Margin Distinct, Outline Attached -Granulation Amt Large (67-100%) -Granulation Quality Pale,[place] -Necrosis Amt None Present (0 %) -Structure Exposed N/A -Texture (Natacha-wound Skin Appearance) Localized Edema ,Scarring -Moisture (Natacha-wound Skin Appearance) Maceration -Color (Natacha-wound Skin Appearance) No Abnormality -Temperature ([place]acha-wound Skin No Abnormality Appearance) (Pt Warm) -Tenderness on Palpation (Natacha-wound No Skin Appearance) -Ulcer Cleansing Soap and Water -Foul Odor after Cleansing No -Anesthetic Used 4% Lidocaine Solution #23 Right Lateral ankle -Current Size (cm) - Length 0.5 0.1 1 -Current Size (cm) - Width 0.5 0.1 1.2 -Current Size (cm) - Depth 0.1 0 0.1 -Total Square Cm 0.25 0.01 1.2 -Date of Last Picture (Recall this 03/12/25 03/26/25 field) -Epithelialization Large 67-100% Large 67-100% -Exudate Amt Small None Present Medium -Exudate Type Serous Serosanguineous -Wound Margin Distinct, Indistinct, Non Distinct, Outline -Visible Outline Attached Attached -Granulation Amt Large (67-100%) Large (67-100%) -Granulation Quality [place] -Necrosis Amt Small (1-33%) -Necrotic Tissue Type Adherent Slough -Structure Exposed N/A -Texture (Natacha-wound Skin Appearance) Assessed Assessed Localized Edema ,Scarring -Moisture (Natacha-wound Skin Appearance) Assessed Assessed No Abnormality -Color (Natacha-wound Skin Appearance) Assessed Assessed No Abnormality -Temperature (Natacha-wound Skin No Abnormality No Abnormality No Abnormality Appearance) (Pt Warm) (Pt Warm) (Pt Warm) -Tenderness on Palpation (Natacha-wound No No No Skin Appearance) -Ulcer Cleansing Soap and Water Rinsed/ Soap and Water Irrigated with Saline -Foul Odor after Cleansing No No No -Anesthetic Used 5% Lidocaine 5% Lidocaine 5% Lidocaine Gel Gel Gel WC - Nurse 2 - General Ulcer CM Notes Start: 03/12/25 09:47 Freq: Status: Active Protocol: Activity Type Activity Date Activity User E-sign Co-sign Detail Recorded Client Recorded Date Recorded By Document 03/12/25 10:11 [id number] 03/12/25 10:12 Document 03/26/25 09:55 JF [id number] 03/26/25 09:56 Document 04/03/25 14:31 DS [id number] 04/03/25 14:52 DS Edit Result 04/03/25 14:31 DS (1) [id number] 04/03/25 15:21 DS (1) #29 Left Lower Leg - Time => 14:32 - Correct Patient => Yes - Correct Side, Site, Position => Yes - Correct Procedure => Yes - Procedure Performed => Yes - Type of Procedure => Debridement - Clinical Debridement => Subcutaneous - Tissue Removed => Subcutaneous - Post Debridement (cm) - Length => 2.2 - Post Debridement (cm) - Width => 1.0 - Post Debridement (cm) - Depth => 0.1 - Total Square (Post) (cm) => 2.20 - Area of Debridement (cm) - Length => 2.2 - Area of Debridement (cm) - Width => 1.0 - Total Square (Area) (cm) => 2.20 - Tunneling => No - Undermining/Tunneling => No - Circular Undermining => No - Wound/Ulcer Outcome => Not Healed - Ulcer Cleansing => Rinsed/Irrigated => with Saline - Foul Odor after Cleansing => No - Bioengineered Tissue => No - Bleeding Controlled with => Pressure - Treatment Response => Procedure => Tolerated Well - Debridement - Subq, 1st 20sq cm => No #28 Left Great Toe - Time => 14:32 - Correct Patient => Yes - Correct Side, Site, Position => Yes - Correct Procedure => Yes - Procedure Performed => Yes - Type of Procedure => Debridement - Clinical Debridement => Subcutaneous - Tissue Removed => Subcutaneous - Post Debridement (cm) - Length => 0.7 - Post Debridement (cm) - Width => 0.6 - Post Debridement (cm) - Depth => 0.1 - Total Square (Post) (cm) => 0.42 - Area of Debridement (cm) - Length => 0.7 - Area of Debridement (cm) - Width => 0.6 - Total Square (Area) (cm) => 0.42 - Tunneling => No - Circular Undermining => No - Wound/Ulcer Outcome => Not Healed - Ulcer Cleansing => Rinsed/Irrigated => with Saline - Foul Odor after Cleansing => No - Bioengineered Tissue => No - Bleeding Controlled with => Pressure - Treatment Response => Procedure => Tolerated Well - Debridement - Subq, 1st 20sq cm => No #27 Left 3rd toe - Time => 14:32 - Correct Patient => Yes - Correct Side, Site, Position => Yes - Correct Procedure => Yes - Procedure Performed => Yes - Type of Procedure => Debridement - Clinical Debridement => Subcutaneous - Tissue Removed => Subcutaneous - Post Debridement (cm) - Length => 1.0 - Post Debridement (cm) - Width => 0.8 - Post Debridement (cm) - Depth => 0.1 - Total Square (Post) (cm) => 0.80 - Area of Debridement (cm) - Length => 1.0 - Area of Debridement (cm) - Width => 0.8 - Total Square (Area) (cm) => 0.80 - Tunneling => No - Undermining/Tunneling => No - Circular Undermining => No - Wound/Ulcer Outcome => Not Healed - Ulcer Cleansing => Rinsed/Irrigated => with Saline - Foul Odor after Cleansing => No - Bioengineered Tissue => No - Bleeding Controlled with => Pressure - Treatment Response => Procedure => Tolerated Well - Debridement - Subq, 1st 20sq cm => No # 25 R 3rd toe - Clinical Debridement => Subcutaneous - Tissue Removed => Subcutaneous - Bleeding Controlled with => Pressure - Treatment Response => Procedure => Tolerated Well - Debridement - Subq, 1st 20sq cm => No #23 Right Lateral ankle - Time => 14:32 - Correct Patient => Yes - Correct Side, Site, Position => Yes - Correct Procedure => Yes - Procedure Performed => Yes - Type of Procedure => Debridement - Clinical Debridement => Subcutaneous - Tissue Removed => Subcutaneous - Post Debridement (cm) - Length => 1.0 - Post Debridement (cm) - Width => 1.5 - Post Debridement (cm) - Depth => 0.1 - Total Square (Post) (cm) => 1.50 - Area of Debridement (cm) - Length => 1.0 - Area of Debridement (cm) - Width => 1.5 - Total Square (Area) (cm) => 1.50 - Tunneling => No - Undermining/Tunneling => No - Circular Undermining => No - Wound/Ulcer Outcome => Not Healed - Ulcer Cleansing => Rinsed/Irrigated => with Saline - Foul Odor after Cleansing => No - Bioengineered Tissue => No - Bleeding Controlled with => Pressure - Treatment Response => Procedure => Tolerated Well - Debridement - Subq, 20sq cm => No 03/12/25 03/26/25 04/03/25 10:11 09:55 14:31 Wound Center Nurse 2 #29 Left Lower Leg -Time 14:32 -Correct Patient Yes -Correct Side, Site, Position Yes -Correct Procedure Yes -Procedure Performed Yes -Type of Procedure Debridement -Clinical Debridement Subcutaneous -Tissue Removed Subcutaneous -Post Debridement (cm) - Length 2.2 -Post Debridement (cm) - Width 1.0 -Post Debridement (cm) - Depth 0.1 -Total Square (Post) (cm) 2.20 -Area of Debridement (cm) - Length 2.2 -Area of Debridement (cm) - Width 1.0 -Total Square (Area) (cm) 2.20 -Tunneling No -Undermining/Tunneling No -Circular Undermining No -Wound/Ulcer Outcome Not Healed -Ulcer Cleansing Rinsed/ Irrigated with Saline -Foul Odor after Cleansing No -Bioengineered Tissue No -Bleeding Controlled with Pressure -Treatment Response Procedure Tolerated Well -Debridement - Subq, 20sq cm No #28 Left Great Toe -Time 14:32 -Correct Patient Yes -Correct Side, Site, Position Yes -Correct Procedure Yes -Procedure Performed Yes -Type of Procedure Debridement -Clinical Debridement Subcutaneous -Tissue Removed Subcutaneous -Post Debridement (cm) - Length 0.7 -Post Debridement (cm) - Width 0.6 -Post Debridement (cm) - Depth 0.1 -Total Square (Post) (cm) 0.42 -Area of Debridement (cm) - Length 0.7 -Area of Debridement (cm) - Width 0.6 -Total Square (Area) (cm) 0.42 -Tunneling No -Circular Undermining No -Wound/Ulcer Outcome Not Healed -Ulcer Cleansing Rinsed/ Irrigated with Saline -Foul Odor after Cleansing No -Bioengineered Tissue No -Bleeding Controlled with Pressure -Treatment Response Procedure Tolerated Well -Debridement - Subq, 20sq cm No #27 Left 3rd toe -Time 14:32 -Correct Patient Yes -Correct Side, Site, Position Yes -Correct Procedure Yes -Procedure Performed Yes -Type of Procedure Debridement -Clinical Debridement Subcutaneous -Tissue Removed Subcutaneous -Post Debridement (cm) - Length 1.0 -Post Debridement (cm) - Width 0.8 -Post Debridement (cm) - Depth 0.1 -Total Square (Post) (cm) 0.80 -Area of Debridement (cm) - Length 1.0 -Area of Debridement (cm) - Width 0.8 -Total Square (Area) (cm) 0.80 -Tunneling No -Undermining/Tunneling No -Circular Undermining No -Wound/Ulcer Outcome Not Healed -Ulcer Cleansing Rinsed/ Irrigated with Saline -Foul Odor after Cleansing No -Bioengineered Tissue No -Bleeding Controlled with Pressure -Treatment Response Procedure Tolerated Well -Debridement - Subq, 1st 20sq cm No #26 R 4th toe -Time 14:31 -Correct Patient Yes -Correct Side, Site, Position Yes -Correct Procedure Yes -Procedure Performed Yes -Type of Procedure Debridement -Clinical Debridement Subcutaneous -Tissue Removed Subcutaneous -Post Debridement (cm) - Length 1.4 -Post Debridement (cm) - Width 1.2 -Post Debridement (cm) - Depth 0.1 -Total Square (Post) (cm) 1.68 -Area of Debridement (cm) - Length 1.4 -Area of Debridement (cm) - Width 1.2 -Total Square (Area) (cm) 1.68 -Tunneling No -Undermining/Tunneling No -Circular Undermining No -Wound/Ulcer Outcome Not Healed -Ulcer Cleansing Rinsed/ Irrigated with Saline -Foul Odor after Cleansing No -Bioengineered Tissue No -Bleeding Controlled with Pressure -Treatment Response Procedure Tolerated Well -Debridement - Subq, 1st 20sq cm Yes # 25 R 3rd toe -Time 14:32 -Correct Patient Yes -Correct Side, Site, Position Yes -Correct Procedure Yes -Procedure Performed Yes -Type of Procedure Debridement -Clinical Debridement Subcutaneous -Tissue Removed Subcutaneous -Post Debridement (cm) - Length 1.0 -Post Debridement (cm) - Width 1.0 -Post Debridement (cm) - Depth 0.1 -Total Square (Post) (cm) 1.00 -Area of Debridement (cm) - Length 1.0 -Area of Debridement (cm) - Width 1.0 -Total Square (Area) (cm) 1.00 -Tunneling No -Undermining/Tunneling No -Circular Undermining No -Wound/Ulcer Outcome Not Healed -Ulcer Cleansing Rinsed/ Irrigated with Saline -Foul Odor after Cleansing No -Bioengineered Tissue No -Bleeding Controlled with Pressure -Treatment Response Procedure Tolerated Well -Debridement - Subq, 1st 20sq cm No #23 Right Lateral ankle -Time 10:12 09:56 14:32 -Correct Patient Yes Yes Yes -Correct Side, Site, Position Yes Yes Yes -Correct Procedure Yes Yes Yes -Procedure Performed Yes Yes Yes -Type of Procedure Debridement Debridement Debridement -Clinical Debridement Subcutaneous Subcutaneous Subcutaneous -Tissue Removed Subcutaneous Subcutaneous Subcutaneous -Post Debridement (cm) - Length 0.3 0.5 1.0 -Post Debridement (cm) - Width 0.4 0.5 1.5 -Post Debridement (cm) - Depth 0.1 0.1 0.1 -Total Square (Post) (cm) 0.12 0.25 1.50 -Area of Debridement (cm) - Length 0.3 0.5 1.0 -Area of Debridement (cm) - Width 0.4 0.5 1.5 -Total Square (Area) (cm) 0.12 0.25 1.50 -Tunneling No No No -Undermining/Tunneling No No No -Circular Undermining No No No -Wound/Ulcer Outcome Not Healed Not Healed Not Healed -Ulcer Cleansing Rinsed/ Rinsed/ Rinsed/ Irrigated with Irrigated with Irrigated with Saline Saline Saline -Foul Odor after Cleansing No No No -Bioengineered Tissue No No No -Bleeding Controlled with Pressure Pressure Pressure -Treatment Response Procedure Procedure Procedure Tolerated Well Tolerated Well Tolerated Well -Offloading No No -Debridement - Subq, 1st 20sq cm Yes Yes No Pain Scale: 0-10 Numeric Is Patient Pain Free? Yes Yes Yes WC - Nurse 3 - General Ulcer D/C NN Start: 03/12/25 09:47 Freq: Status: Active Protocol: Activity Type Activity Date Activity User E-sign Co-sign Detail Recorded Client Recorded Date Recorded By Document 03/12/25 10:20 [facility] [id number] 03/12/25 10:20 [facility] Document 03/26/25 10:35 JF [id number] 03/26/25 10:36 JF Document 04/03/25 14:54 KW [id number] 04/03/25 14:55 KW 03/12/25 03/26/25 04/03/25 10:20 10:35 14:54 [facility] Nurse 3 #26 R 4th toe -Other Dressing betadine -Primary Dressing Covered/Secured with Dry Gauze & Roll Gauze, Secured with Tape # 25 R 3rd toe -Other Dressing betadine -Primary Dressing Covered/Secured with Dry Gauze & Roll Gauze, Secured with Tape #23 Right Lateral ankle -Ulcer Cleansing Rinsed/ Rinsed/ Irrigated with Irrigated with Saline Saline -Foul Odor after Cleansing No No -Primary Dressing Applied Silicone Border Aquacel AG 2x2 AMD Dressing Foam 4x4 4x4 -Other Dressing betadine hydrogel -Primary Dressing Covered/Secured with Dry Gauze Dry Gauze -AMD Dressing 4x4 1 -Aquacel AG 2x2 1 -Silicone Border Foam 4x4 1 RLE -Lotion applied to leg before Yes compression wrap -Multi-Layered Wrap Application Multi-Layer Multi-Layer Comp - Right ($ Comp - Right ($ ) ) -Tubular Bandage Single Layer -Size of Tubigrip Used Size D -Size D ($) 1 -Multi-Layer Compression Right (Qty 1 1 applied) Treatment Response Procedure Tolerated Well Pain Scale: 0-10 Numeric Is Patient Pain Free? Yes Yes Yes rle -Description Sharp,Throbbing -Intensity 10 -Alleviating Factors/Interventions Turning/ Repositioning WC - Visit Discharge Discharge Condition Stable Stable Stable Ambulatory Status Wheelchair Ambulatory, Wheelchair Wheelchair Transportation g[place]st Accompanied by ilcrest Medication Reconcilliation completed & Yes No provided to patient/care provider Clinical Summary of Care Provided Yes Yes Facility Type [facility] Assessment/Plan Assessment/Plan (1) Varus deformity, not elsewhere classified, right ankle: CODE(S): M21.171 - Varus deformity, not elsewhere classified, right ankle PLAN: Patient was examined and evaluated. All findings were discussed with the patient. All questions were answered to the patient's satisfaction. Excisional debridement down to and including subcutaneous tissue of the right ankle full-thickness wound with a number 3 mm dermal curette done without incident. Predebridement measurement was 0.8 x 1.2 x 0.1 cm. Postdebridement measurement is 1.0 x 1.5 x 0.1 cm. Excisional debridement down to and including subcutaneous tissue with a number 3 mm dermal curette to the right third digit done without incident. Predebridement measurement was 0.8 x 0.8 x 0.1 cm. Postdebridement measurement is 1.0 x 1.0 x 0.1 cm. Excisional debridement down to and including subcutaneous tissue with a number 3 mm dermal curette to the right fourth digit done without incident. Predebridement measurement was 1.2 x 1.1 x 0.1 cm. Postdebridement measurement is 1.4 x 1.2 x 0.1 cm. The bilateral extremity likely dependent dry. Betadine paint was applied to all digital full-thickness wounds and AMD pad were applied to the left leg and right ankle full-thickness wound. Dry sterile dressing was applied with 3M multilayer compression wraps. Patient will keep wraps clean dry and intact. We will move forward with ordering a CT scan of the patient's right lower extremity for possible surgical planning. Patient was given a order for labs to include HbA1c, CBC, BMP, CRP and ESR as well as for surgical planning. Follow-up at the wound care center with Dr. Kowalski in 1 week. (2) Non-pressure chronic 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 layer exposed: CODE(S): L97.512 - Non-pressure chronic 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 layer exposed (3) Non-pressure chronic ulcer of other part of right lower leg with fat layer exposed: CODE(S): L97.812 - Non-pressure chronic ulcer of other part of right lower leg with fat layer exposed (4) Non-pressure chronic ulcer of other part of left foot with fat layer exposed: CODE(S): L97.522 - Non-pressure chronic ulcer of other part of left foot with fat layer exposed (5) Non-pressure chronic ulcer of other part of left lower leg with fat layer exposed: CODE(S): L97.822 - Non-pressure chronic ulcer of other part of left lower leg with fat layer exposed (6) Acute painful diabetic polyneuropathy: CODE(S): E11.42 - Type 2 diabetes mellitus with diabetic polyneuropathy (7) Other specified peripheral vascular diseases: CODE(S): I73.89 - Other specified peripheral vascular diseases
== END 2025-04-08 23:59 | disposition home or self-care (01) ==
LOC: WC 13:45
PROVIDERS: PCP Family Medicine; Referring Provider Podiatrist; Visit Provider Podiatrist Foot & Ankle Surgery
DX: E11.621 Type 2 diabetes mellitus with foot ulcer (principal); I12.0 Hypertensive chronic kidney disease with stage 5 chronic kidney disease or end stage renal disease; N18.6 End stage renal disease; L97.312 Non-pressure chronic ulcer of right ankle with fat layer exposed; E11.22 Type 2 diabetes mellitus with diabetic chronic kidney disease; E11.42 Type 2 diabetes mellitus with diabetic polyneuropathy; Z79.4 Long term (current) use of insulin; M21.171 Varus deformity, not elsewhere classified, right ankle; M20.31 Hallux varus (acquired), right foot; I25.10 Atherosclerotic heart disease of native coronary artery without angina pectoris; I25.5 Ischemic cardiomyopathy; E78.5 Hyperlipidemia, unspecified; G89.29 Other chronic pain; K21.9 Gastro-esophageal reflux disease without esophagitis; I25.2 Old myocardial infarction; Z79.82 Long term (current) use of aspirin; Z79.890 Hormone replacement therapy; Z79.899 Other long term (current) drug therapy; Z86.73 Personal history of transient ischemic attack (TIA), and cerebral infarction without residual deficits
CPT/HCPCS: 11042; 29581

== ENCOUNTER 2025-04-11 10:51 | Inpatient (IN) | payer MEDICARE, MEDICAID, SELFPAY ==
[2018-09-21 13:23] VITALS: BMI 29.3
[2025-04-11] VITALS (20 sets, daily range): BP systolic 117–192; BP diastolic 59–133; PULSE 67–98; RESP 13–30; TEMP 32.7–37; O2SAT 93–100; BMI 29.4; BMI 26.6
--- NOTE | 2025-04-11 11:36 | EKG12_ITS ---
Test Reason : Blood Pressure : */* mmHG Vent. Rate : 84 BPM Atrial Rate : 84 BPM P-R Int : 158 ms QRS Dur : 94 ms QT Int : 426 ms P-R-T Axes : 69 -13 66 degrees QTcB Int : 503 ms Normal sinus rhythm Minimal voltage criteria for LVH, may be normal variant ( Valatie product ) Prolonged QT Abnormal ECG Confirmed by OTTO DELVALLE, DOMINIQUE ([id number]), make up editor HARINI PHAM ([id number]) on 04/15/2025 9:58:07 AM Referred By: Shayne Castro Confirmed By: DOMINIQUE MENJIVAR MD
--- NOTE | 2025-04-11 11:38 | EX.ED.DYSGE1 ---
HPI History of Present Illness Chief Complaint: Alt LOC Narrative Narrative: Patient sent from nursing facility for lethargy/decreased level of consciousness. custodial staff found her like this according to EMS. EMS states at 1 point she was sitting up and talking to them for them, but level of consciousness has been wavering. Apparently she took her usual methadone this morning. Limited history due to altered level of consciousness, but staff tells me that before my examination she told them that she had her last dialysis session yesterday and finished it. [facility] Medical History History of stress test History of echocardiogram History of transesophageal echocardiography (HONG) History of TIA (transient ischemic attack) History of myocardial infarction Diabetes mellitus type 2 with complications Non-pressure chronic ulcer of ankle with fat layer exposed Secondary hyperparathyroidism Non-pressure chronic ulcer of right ankle with necrosis of muscle Non-pressure chronic ulcer of left ankle with necrosis of muscle Adverse effect of synthetic cannabinoids, initial encounter [place] coma scale score 13-15, at arrival to emergency department Acute alteration in mental status Short Achilles tendon (acquired), left ankle Short Achilles tendon (acquired), right ankle Acquired cavovarus deformity of left foot Acquired cavovarus deformity of right foot Type 2 diabetes mellitus with diabetic polyneuropathy Adult failure to thrive ESRD (end stage renal disease) on dialysis Drowsiness Mental status, decreased Carotid artery stenosis MSSA bacteremia ESRD on hemodialysis Osteomyelitis Anemia in chronic illness Type 2 diabetes mellitus Foot osteomyelitis, left Chronic renal disease, stage 4, severely decreased glomerular filtration rate (GFR) between 15-29 mL/min/1.73 square meter Acute on chronic anemia Chronic ulcer of right foot with necrosis of bone Chronic kidney disease, stage 4 (severe) Diabetes mellitus with diabetic polyneuropathy Diabetic foot ulcers Chronic kidney disease, stage 3b Charcot's joint, right ankle and foot Charcot's joint, left ankle and foot Cellulitis Acute lumbar radiculopathy Essential hypertension Adult failure to thrive COVID-19 (08/28/21) Chronic ulcer of right leg with fat layer exposed Ulcer of left foot with fat layer exposed Chronic ulcer of right foot with fat layer exposed Hyperparathyroidism, secondary renal Iron deficiency anemia Bilateral edema of lower extremity Chronic foot pain Non-pressure chronic 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 layer exposed Debility Charcot's joint of right foot Diabetes Non-smoker Myocardial infarct Hypertension TIA (transient ischemic attack) Amputation foot, bilat Non-pressure chronic ulcer of other part of left foot with fat layer exposed 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 Ulcer of left foot with necrosis of muscle Ulcer of left foot with muscle involvement without evidence of necrosis Anxiety and depression Diabetic infection of left foot Delayed wound healing Non-compliance Diabetic polyneuropathy Ischemic cardiomyopathy Obesity (BMI 30.0-34.9) Acquired varus deformity of left foot Acquired varus deformity of right foot Atherosclerosis of [place] coronary artery of [place] heart without angina pectoris Hemoglobin A1c greater than 9.0% NSTEMI (non-ST elevated myocardial infarction) (09/20/18) GERD (gastroesophageal reflux disease) HLD (hyperlipidemia) Back pain, chronic RLS (restless legs syndrome) Home Medications ?Medication ?Instructions ?Recorded ?Last Taken ?Type paroxetine HCl 20 mg tablet 30 mg PO QHS DEPRESSION 07/07/21 04/07/22 History ascorbic acid (vitamin C) 500 mg 500 mg PO BID supplement 05/05/22 Unknown History tablet (Vitamin C) pantoprazole 40 mg tablet,delayed 40 mg PO BIDCM GERD 07/19/22 Unknown History release folic acid 800 mcg tablet 0.8 mg PO DAILY supplement 12/16/23 Unknown History levothyroxine 25 mcg tablet 25 mcg PO DAILY thyroid 12/16/23 Unknown History aspirin 81 mg capsule 81 mg PO DAILY blood thinner #30 12/26/23 Unknown Rx caps atorvastatin 40 mg tablet 40 mg PO QHS cholesterol 03/18/24 06/26/24 History acetaminophen 325 mg tablet 650 mg PO Q6H PRN fever or pain 07/09/24 Unknown History insulin lispro 100 unit/mL See Protocol subcut TIDAC blood 09/13/24 Unknown History subcutaneous pen (Humalog KwikPen sugar (U-100) Insulin) L.acidophil,salivari-Bifido 1 cap PO 4X/DAY #0 caps 09/21/24 Unknown Rx bifidum-Strep thermoph 175 mg capsule nutrition tx glu 120 ml PO TIDCM #0 mL 09/21/24 Unknown Rx intol,lac-free,soy-fiber 0.06 gram-1.2 kcal/mL liquid (Glucerna 1.2 Howie) carvedilol 25 mg tablet 12.5 mg PO QHS blood pressure 12/06/24 Unknown History gabapentin 100 mg capsule 100 mg PO TID pain 12/06/24 Unknown History levetiracetam 500 mg tablet 250 mg PO QHS 12/06/24 Unknown History levetiracetam 500 mg tablet 500 mg PO BID 12/06/24 Unknown History ropinirole 0.25 mg tablet 0.25 mg PO QHS 12/06/24 Unknown History artificial 1 drp ophthalmic (eye) QHS 02/28/25 Unknown History tears(oddazbk-gphjbthr-bdogbxo) 0.1 %-0.3 %-0.2 % eye drops (GenTeal Tears Moderate) hydrocortisone 1 % topical cream 1 applic topical BID PRN itching 02/28/25 Unknown History (Cortisone (hydrocortisone)) hydroxyzine HCl 25 mg tablet 25 mg PO TID PRN itching 02/28/25 Unknown History methadone 5 mg tablet 2.5 mg PO TID 02/28/25 Unknown History ondansetron HCl 4 mg tablet 4 mg PO Q8H 02/28/25 Unknown History carvedilol 12.5 mg tablet (Coreg) 12.5 mg PO SUTUTHSA 03/18/25 Unknown History hydralazine 100 mg tablet 100 mg PO BID 03/18/25 Unknown History lorazepam 0.5 mg tablet 0.5 mg PO DAILY anxiety 03/18/25 Unknown History melatonin 5 mg capsule 5 mg PO QHS 03/18/25 Unknown History sucralfate 1 gram tablet 1 g PO ACHS indigestion 03/18/25 Unknown History acetaminophen 500 mg capsule 1,000 mg PO QHS 04/11/25 Unknown History clobetasol-propionate 1 applic topical CONT PRN rash 04/11/25 Unknown History insulin lispro 100 unit/mL 5 unit subcut ACHS 04/11/25 Unknown History subcutaneous pen (Humalog KwikPen (U-100) Insulin) Allergy/AdvReac Type Severity Reaction Status Date / Time fentanyl Allergy Other Verified 04/11/25 10:57 oxycodone (From OxyContin) Allergy sob Verified 04/11/25 10:57 Penicillins Allergy swelling Verified 04/11/25 10:57 in throat vancomycin Allergy Itching Verified 04/11/25 10:57 metronidazole AdvReac Nausea Verified 04/11/25 10:57 Family History Mother Diabetes CVA (cerebral vascular accident) Brother CAD (coronary artery disease) CABG X 3 Cancer testicular Diabetes Brother CAD (coronary artery disease) CABG X3 Diabetes Brother CAD (coronary artery disease) Stents Diabetes Sister CAD (coronary artery disease) CABG x 3 CVA (cerebral vascular accident) Diabetes Surgical History History of cardiac catheterization History of History of foot surgery History of bilateral carpal tunnel release History of rotator cuff surgery History of coronary artery stent placement (12/31/20) Social History household members: none number of children: 2 current occupational status: disabled Smoking Status: Never smoker alcohol intake: never substance use type: does not use caffeine: Yes Type: carbonated beverages Number of servings: 2 ROS ROS ED Review of Systems ROS Unobtainable: due to mental status EXAM Physical Exam Const Vital Signs: 04/11/25 10:53 04/11/25 10:57 04/11/25 11:36 Temperature 97.6 F L 91 F L Temperature Source Temporal Core Pulse Rate 71 67 Respiratory Rate 16 13 Blood Pressure 150/61 H 152/68 H Blood Pressure Mean 90 96 Pulse Ox 100 93 97 Oxygen Delivery Method Room Air Room Air Room Air Oxygen Flow Rate (L/min) 04/11/25 11:52 04/11/25 11:57 04/11/25 12:00 Temperature 95.5 F L Temperature Source Core Pulse Rate 90 89 78 Respiratory Rate 16 16 18 Blood Pressure 129/84 H 129/84 H 117/69 Blood Pressure Mean 99 99 85 Pulse Ox 93 94 Oxygen Delivery Method Room Air Room Air Room Air Oxygen Flow Rate (L/min) 04/11/25 13:00 04/11/25 14:25 04/11/25 15:00 Temperature 97.5 F L 97.6 F L Temperature Source Core Core Pulse Rate 98 88 73 Respiratory Rate 19 H 20 H 16 Blood Pressure 127/74 H 167/74 H 183/78 H Blood Pressure Mean 91 99 113 Pulse Ox 94 100 Oxygen Delivery Method Nasal Cannula Nasal Cannula Oxygen Flow Rate (L/min) 3 04/11/25 16:00 04/11/25 17:00 Temperature Temperature Source Pulse Rate 72 71 Respiratory Rate 16 16 Blood Pressure 181/77 H 147/73 H Blood Pressure Mean 111 97 Pulse Ox 100 93 Oxygen Delivery Method Nasal Cannula Nasal Cannula Oxygen Flow Rate (L/min) 2 2 Positive well nourished, well developed and obese Constitutional Narrative: Extremely lethargic, moans in response to questions and commands. General Appearance ED: well developed Nutritional Appearance: obese HEENT Reports moist mucous membranes normocephalic and atraumatic Eyes PERRL and EOMs intact bilaterally Eyes Narrative: pinpoint pupils bilat Neck full ROM and supple Resp normal respiratory effort and clear to auscultation bilaterally Cardio regular rate, regular rhythm and no murmurs Rate: Negative for tachycardic GI non-tender and non-distended Auscultation: normoactive bowel sounds Palpation: soft Back/Spine Back/Spine Narrative: No signs of trauma Extremity normal to inspection General Extremety ED: Negative for edema, pulses abnormal or tenderness General Extremity: Negative for edema or pulses abnormal Neuro Neuro Narrative: GCS: 1/5/2 = 8 Sensorium / Orientation: stuporous Skin no rashes or lesions noted and no wounds MDM MDM MDM Narrative Medical decision making narrative: BGT 100. Given this, patient's vital signs are fairly normal and she has pinpoint pupils with severe lethargy. This is consistent with narcotic toxidrome so Narcan was given, which woke her up immediately, she was immediately crying, and very agitated, using her gums (edentulous) to gnaw on her forearm, unintentionally apparently trying to kick at staff and the bed rails, and screaming out. This continued for an hour or 2 until we gave her a dose of Ativan to try to settle her down and prevent her from flopping out of bed and hurting herself or someone else. She says she was not trying to she was very anxious about what was going on which I tried to explain to her. Her labs show mild hyperkalemia, she may have some peaked T waves but the EKG shows artifact due to the patient not staying still. Therefore give the patient a dose of Kayexalate. During all of this she had an episode which appeared to be ventricular tachycardia on the monitor versus a transient aberrancy, less likely to be artifact but that is in the differential as well. She does have a very loose right ankle with a varus deformity, moving it around does not cause the patient pain, I reviewed some old records that show as of 1 week ago that she has a chronic Charcot right foot and ankle with varus deformity and peripheral neuropathy, according to the description of that in the podiatry note, this appears stable and unchanged clinically. Patient's initial troponin 120, the second 1 went down a little bit at 116. Her run of wide-complex tachycardia was 10-20 seconds. I discussed all this with cardiology Dr. Rivera. He advises trying to admit the patient to the ICU for monitoring agrees with all of this, giving her Kayexalate to help bring her potassium down. I did repeat her potassium, it was the same as it was earlier 5.2. However, nursing had not giving her the Kayexalate that I ordered because of higher acuity in the department which I was unaware of at the time of getting her repeat potassium. Nursing to give the Kayexalate and discussed with hospitalist for admission History & Record Review Additional record(s) reviewed:: Prior outpatient record (Podiatry 1 week ago see above) Lab Data Attestation: I reviewed the patient's lab results. Labs: Laboratory Results - last 24 hr 04/11/25 04/11/25 04/11/25 11:03 12:53 14:01 WBC 8.0 RBC 3.66 L Hgb 11.0 L Hct 35.5 L MCV 97.0 MCH 30.1 MCHC 31.0 L RDW Std Deviation 60.2 H RDW Coeff of Fior 16.7 H Plt Count 205 MPV 10.8 Immature Gran % (Auto) 0.300 Neut % (Auto) 83.6 H Lymph % (Auto) 8.6 L Bath % (Auto) 6.0 Eos % (Auto) 1.0 Baso % (Auto) 0.5 Absolute Neuts (auto) 6.7 Absolute Lymphs (auto) 0.69 L Nucleated RBC % 0 Sodium 141 Potassium 5.2 H Chloride 100 Carbon Dioxide 24.9 Anion Gap 16 H BUN 48 H Creatinine 5.04 H Estim Creat Clear Calc 12.58 L Est GFR (MDRD) Non-Af 9 L BUN/Creatinine Ratio 9.4 L Glucose 122 H Calcium 9.4 Troponin T High Sens 120 H* Troponin T Hi Sens 2 Hr Urine Color Yellow Urine Clarity Clear Urine pH 8.0 Ur Specific [place] 1.010 Urine Protein 500 H Urine Glucose (UA) 100 H Urine Ketones Negative Urine Occult Blood 10 H Urine Nitrite Negative Urine Bilirubin Negative Urine Urobilinogen Normal Ur Leukocyte Esterase Negative Urine RBC 0-5 SEEN Urine WBC 0-5 SEEN Ur Squamous Epith Cells 0-5 SEEN Ur Transition Epith Cell 0-5 SEEN Urine Bacteria 0 SEEN Urine Mucus 0 SEEN POC Glucose 100 04/11/25 14:56 WBC RBC Hgb Hct MCV MCH MCHC RDW Std Deviation RDW Coeff of [place] Plt Count MPV Immature Gran % (Auto) Neut % (Auto) Lymph % (Auto) Bath % (Auto) Eos % (Auto) Baso % (Auto) Absolute Neuts (auto) Absolute Lymphs (auto) Nucleated RBC % Sodium Potassium 5.2 H Chloride Carbon Dioxide Anion Gap BUN Creatinine Estim Creat Clear Calc Est GFR (MDRD) Non-Af BUN/Creatinine Ratio Glucose Calcium Troponin T High Sens Troponin T Hi Sens 2 Hr 116 H* Urine Color Urine Clarity Urine pH Ur Specific [place] Urine Protein Urine Glucose (UA) Urine Ketones Urine Occult Blood Urine Nitrite Urine Bilirubin Urine Urobilinogen Ur Leukocyte Esterase Urine RBC Urine WBC Ur Squamous Epith Cells Ur Transition Epith Cell Urine Bacteria Urine Mucus POC Glucose Radiography Diagnostic Testing: Clinical Impression(s) from Imaging Studies Chest X-Ray 04/11/25 13:30 IMPRESSION: No acute pulmonary process Reading Location: [facility] Rhythm Strip Rhythm Strip: Sinus Rhythm Rate: 90 Ectopy: None EKG Initial EKG: Attestation: I personally reviewed and interpreted this EKG as follows: Interpretation: Sinus Rhythm and No Acute Injury Pattern Comments: Possibly peaked T waves. Artifact due to movement. Management Discussion w/another healthcare provider: Hospitalist and Business Writer (cardiology) Discharge Plan Dx/Rx/DC Orders Clinical Impression: Narcotic induced mental alteration, Hyperkalemia, diminished renal excretion, Chronic kidney disease on chronic dialysis, Wide-complex tachycardia, Psychomotor agitation Disposition Disposition: [facility]
[2025-04-11] MEDS: Naloxone 0.4 MG/ML Syringe IV (11:45)
[2025-04-11 13:05] LABS: Hematocrit 35.5 % (37-47); Hemoglobin 11.0 g/dL (12.0-15.0); Immature Granulocytes Count 0.020 X10^3/uL (0.0-0.0); Mean Corp Hgb Conc 31.0 g/dL (32-36); Mean Corpuscular Volume 97.0 fL (81-99); Mean Platelet Vol. 10.8 fl (6.2-12.0); NRBC Flagged by Analyzer 0 % (0-5); Platelet Count 205 K/mm3 (150-450); RBC Distribution Width CV 16.7 % (11.6-14.6); RBC Distribution Width SD 60.2 fl (35.1-43.9); Red Blood Count 3.66 M/mm3 (4.2-5.4); White Blood Count 8.0 K/mm3 (4.4-11.0)
--- NOTE | 2025-04-11 13:30 | RAD_ITS ---
PROCEDURE: CHEST 1 VIEW (PORTABLE) 04/11/2025 REASON FOR EXAM: ALTERED LOC TECHNIQUE: 3 AP views COMPARISON: 01/07/2025 FINDINGS: Stable appearance of a left subclavian catheter, and EKG leads. Lungs are expanded without evidence of a superimposed acute pulmonary process. Stable borderline cardiomegaly. Degenerative bony changes RAD/Chest 1 View (Portable) IMPRESSION: No acute pulmonary process Reading Location: [id number]
[2025-04-11 13:35] LABS: Anion Gap 16 (5-15); BUN 48 mg/dL (4-19); BUN/Creat Ratio 9.4 RATIO (10-20); Calcium,Total 9.4 mg/dL (7.6-11.0); Carbon Dioxide 24.9 mmol/L (21.0-32.0); Chloride 100 mmol/L (98-108); Estimated Creatinine Clearance 12.58 ml/min (50-250); Glucose 122 mg/dL (70-99); Potassium 5.2 mmol/L (3.3-5.1)
[2025-04-11 13:56] LABS: Troponin T High Sensitivity 120 ng/L (<=14)
[2025-04-11] MEDS: Lorazepam 2 MG/ML WCH Syringe 0.5 MG IV (14:02)
[2025-04-11 14:06] LABS: Mucous, Urine 0 SEEN /hpf (<or=2+)
[2025-04-11 14:23] LABS: Color, Urine Yellow (Yellow); Glucose, Dipstick 100 mg/dl (Normal); Ketone-Dipstick Negative (Negative); Leukocyte Esterase-Dipstick Negative /ul (Negative); Nitrite-Dipstick Negative (Negative); Occult Blood-Urine 10 /ul (Negative); Protein-Dipstick 500 mg/dl (Negative); Specific Gravity, Urine 1.010 (1.002-1.030); Urine Bilirubin Dipstick Negative (Negative)
[2025-04-11 15:00] LABS: Red Blood Cells-Urine 0-5 SEEN /hpf (0-5); Squamous Epithelial Cells - UA 0-5 SEEN /hpf (5-10); Transitional Epithelial - Ur 0-5 SEEN /hpf (0-5)
[2025-04-11 16:24] LABS: Troponin T High Sens 2 HR 116 ng/L (<=14)
[2025-04-11 16:32] LABS: Potassium 5.2 mmol/L (3.3-5.1)
--- NOTE | 2025-04-11 17:26 | PCM.HP.STD ---
HPI - General General Date of Admission: 04/11/25 Date of Service: 04/11/25 Chief Complaint: Altered mental status with lethargy HPI Narrative DIONY ROCHA, is a 59 F who presented to [facility] ED on 04/11/2025 with altered mental status and lethargy. Patient has been hospitalized here many times in the past. Last hospitalization here was in September 2024. Her medical history is significant for ESRD on HD, type 2 diabetes mellitus with recurrent diabetic foot infections, chronic right lower extremity deformity with debility living in alf, CAD with stenting, seizure disorder and chronic pain syndrome. She is currently on methadone 2.5 mg 3 times daily for chronic pain. Reviewed OARRS and it appears she was initiated on scheduled low-dose methadone by her PCP in late December for pain control. Today she was sent to the ED from her nursing facility for altered mentation with lethargy. She had taken her usual dose of methadone this morning. Her vital signs were normal but she was noted to have pinpoint pupils so she was given Narcan. This woke her up immediately and she was very agitated for about an hour or so. At that time she was given a dose of IV Ativan with improvement in her agitation. During the period of agitation, she had an episode that appeared to be wide-complex V. tach on the monitor for about 15 to 20 seconds. Last dialysis session was yesterday and potassium was 5.2. Case was discussed with Dr. Canela who recommended treating the hyperkalemia and admitting to the ICU for monitoring overnight. Hospitalist was then contacted for admission. I saw the patient at bedside in the ED. Patient was fairly lethargic presumed due to the Ativan. She was able to tell me that she was at [facility] and that it was April 2025. She did not remember what brought her into the hospital. She denied any acute pain or discomfort currently. Will admit for further management. [facility] Medical History History of stress test History of echocardiogram History of transesophageal echocardiography (HONG) History of TIA (transient ischemic attack) History of myocardial infarction Diabetes mellitus type 2 with complications Non-pressure chronic ulcer of ankle with fat layer exposed Secondary hyperparathyroidism Non-pressure chronic ulcer of right ankle with necrosis of muscle Non-pressure chronic ulcer of left ankle with necrosis of muscle Adverse effect of synthetic cannabinoids, initial encounter Avery coma scale score 13-15, at arrival to emergency department Acute alteration in mental status Short Achilles tendon (acquired), left ankle Short Achilles tendon (acquired), right ankle Acquired cavovarus deformity of left foot Acquired cavovarus deformity of right foot Type 2 diabetes mellitus with diabetic polyneuropathy Adult failure to thrive ESRD (end stage renal disease) on dialysis Drowsiness Mental status, decreased Carotid artery stenosis MSSA bacteremia ESRD on hemodialysis Osteomyelitis Anemia in chronic illness Type 2 diabetes mellitus Foot osteomyelitis, left Chronic renal disease, stage 4, severely decreased glomerular filtration rate (GFR) between 15-29 mL/min/1.73 square meter Acute on chronic anemia Chronic ulcer of right foot with necrosis of bone Chronic kidney disease, stage 4 (severe) Diabetes mellitus with diabetic polyneuropathy Diabetic foot ulcers Chronic kidney disease, stage 3b Charcot's joint, right ankle and foot Charcot's joint, left ankle and foot Cellulitis Acute lumbar radiculopathy Essential hypertension Adult failure to thrive COVID-19 (08/28/21) Chronic ulcer of right leg with fat layer exposed Ulcer of left foot with fat layer exposed Chronic ulcer of right foot with fat layer exposed Hyperparathyroidism, secondary renal Iron deficiency anemia Bilateral edema of lower extremity Chronic foot pain Non-pressure chronic 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 layer exposed Debility Charcot's joint of right foot Diabetes Non-smoker Myocardial infarct Hypertension TIA (transient ischemic attack) Amputation foot, bilat Non-pressure chronic ulcer of other part of left foot with fat layer exposed 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 Ulcer of left foot with necrosis of muscle Ulcer of left foot with muscle involvement without evidence of necrosis Anxiety and depression Diabetic infection of left foot Delayed wound healing Non-compliance Diabetic polyneuropathy Ischemic cardiomyopathy Obesity (BMI 30.0-34.9) Acquired varus deformity of left foot Acquired varus deformity of right foot Atherosclerosis of [place] coronary artery of [place] heart without angina pectoris Hemoglobin A1c greater than 9.0% NSTEMI (non-ST elevated myocardial infarction) (09/20/18) GERD (gastroesophageal reflux disease) HLD (hyperlipidemia) Back pain, chronic RLS (restless legs syndrome) Home Medications ?Medication ?Instructions ?Recorded ?Last Taken ?Type paroxetine HCl 20 mg tablet 30 mg PO QHS DEPRESSION 07/07/21 04/07/22 History ascorbic acid (vitamin C) 500 mg 500 mg PO BID supplement 05/05/22 Unknown History tablet (Vitamin C) pantoprazole 40 mg tablet,delayed 40 mg PO BIDCM GERD 07/19/22 Unknown History release folic acid 800 mcg tablet 0.8 mg PO DAILY supplement 12/16/23 Unknown History levothyroxine 25 mcg tablet 25 mcg PO DAILY thyroid 12/16/23 Unknown History aspirin 81 mg capsule 81 mg PO DAILY blood thinner #30 12/26/23 Unknown Rx caps atorvastatin 40 mg tablet 40 mg PO QHS cholesterol 03/18/24 06/26/24 History acetaminophen 325 mg tablet 650 mg PO Q6H PRN fever or pain 07/09/24 Unknown History insulin lispro 100 unit/mL See Protocol subcut TIDAC blood 09/13/24 Unknown History subcutaneous pen (Humalog KwikPen sugar (U-100) Insulin) L.acidophil,salivari-Bifido 1 cap PO 4X/DAY #0 caps 09/21/24 Unknown Rx bifidum-Strep thermoph 175 mg capsule nutrition tx glu 120 ml PO TIDCM #0 mL 09/21/24 Unknown Rx intol,lac-free,soy-fiber 0.06 gram-1.2 kcal/mL liquid (Glucerna 1.2 Howie) carvedilol 25 mg tablet 12.5 mg PO QHS blood pressure 12/06/24 Unknown History gabapentin 100 mg capsule 100 mg PO TID pain 12/06/24 Unknown History levetiracetam 500 mg tablet 250 mg PO QHS 12/06/24 Unknown History levetiracetam 500 mg tablet 500 mg PO BID 12/06/24 Unknown History ropinirole 0.25 mg tablet 0.25 mg PO QHS 12/06/24 Unknown History artificial 1 drp ophthalmic (eye) QHS 02/28/25 Unknown History tears(czfhtye-sbxldwja-zetwagc) 0.1 %-0.3 %-0.2 % eye drops (GenTeal Tears Moderate) hydrocortisone 1 % topical cream 1 applic topical BID PRN itching 02/28/25 Unknown History (Cortisone (hydrocortisone)) hydroxyzine HCl 25 mg tablet 25 mg PO TID PRN itching 02/28/25 Unknown History methadone 5 mg tablet 2.5 mg PO TID 02/28/25 Unknown History ondansetron HCl 4 mg tablet 4 mg PO Q8H 02/28/25 Unknown History carvedilol 12.5 mg tablet (Coreg) 12.5 mg PO SUTUTHSA 03/18/25 Unknown History hydralazine 100 mg tablet 100 mg PO BID 03/18/25 Unknown History lorazepam 0.5 mg tablet 0.5 mg PO DAILY anxiety 03/18/25 Unknown History melatonin 5 mg capsule 5 mg PO QHS 03/18/25 Unknown History sucralfate 1 gram tablet 1 g PO ACHS indigestion 03/18/25 Unknown History acetaminophen 500 mg capsule 1,000 mg PO QHS 04/11/25 Unknown History clobetasol-propionate 1 applic topical CONT PRN rash 04/11/25 Unknown History insulin lispro 100 unit/mL 5 unit subcut ACHS 04/11/25 Unknown History subcutaneous pen (Humalog KwikPen (U-100) Insulin) Allergy/AdvReac Type Severity Reaction Status Date / Time fentanyl Allergy Other Verified 04/11/25 10:57 oxycodone (From OxyContin) Allergy sob Verified 04/11/25 10:57 Penicillins Allergy swelling Verified 04/11/25 10:57 in throat vancomycin Allergy Itching Verified 04/11/25 10:57 metronidazole AdvReac Nausea Verified 04/11/25 10:57 Family History Mother Diabetes CVA (cerebral vascular accident) Brother CAD (coronary artery disease) CABG X 3 Cancer testicular Diabetes Brother CAD (coronary artery disease) CABG X3 Diabetes Brother CAD (coronary artery disease) Stents Diabetes Sister CAD (coronary artery disease) CABG x 3 CVA (cerebral vascular accident) Diabetes Surgical History History of cardiac catheterization History of History of foot surgery History of bilateral carpal tunnel release History of rotator cuff surgery History of coronary artery stent placement (12/31/20) Social History household members: none number of children: 2 current occupational status: disabled Smoking Status: Never smoker alcohol intake: never substance use type: does not use caffeine: Yes Type: carbonated beverages Number of servings: 2 ROS Review of Systems ROS Unobtainable: due to mental status Vital Signs Vital Signs Vital Signs: 04/11/25 10:53 04/11/25 10:57 04/11/25 11:36 Temperature 97.6 F L 91 F L Temperature Source Temporal Core Pulse Rate 71 67 Respiratory Rate 16 13 Blood Pressure 150/61 H 152/68 H Blood Pressure Mean 90 96 Pulse Ox 100 93 97 Oxygen Delivery Method Room Air Room Air Room Air Oxygen Flow Rate (L/min) 04/11/25 11:52 04/11/25 11:57 04/11/25 12:00 Temperature 95.5 F L Temperature Source Core Pulse Rate 90 89 78 Respiratory Rate 16 16 18 Blood Pressure 129/84 H 129/84 H 117/69 Blood Pressure Mean 99 99 85 Pulse Ox 93 94 Oxygen Delivery Method Room Air Room Air Room Air Oxygen Flow Rate (L/min) 04/11/25 13:00 04/11/25 14:25 04/11/25 15:00 Temperature 97.5 F L 97.6 F L Temperature Source Core Core Pulse Rate 98 88 73 Respiratory Rate 19 H 20 H 16 Blood Pressure 127/74 H 167/74 H 183/78 H Blood Pressure Mean 91 99 113 Pulse Ox 94 100 Oxygen Delivery Method Nasal Cannula Nasal Cannula Oxygen Flow Rate (L/min) 3 04/11/25 16:00 04/11/25 17:00 04/11/25 17:22 Temperature 98.5 F Temperature Source Pulse Rate 72 71 78 Respiratory Rate 16 16 16 Blood Pressure 181/77 H 147/73 H 180/75 H Blood Pressure Mean 111 97 110 Pulse Ox 100 93 99 Oxygen Delivery Method Nasal Cannula Nasal Cannula Oxygen Flow Rate (L/min) 2 2 Weight Weight: 80.2 kg Body Mass Index (BMI) 29.4 Physical Exam Const alert, oriented x3 and no apparent distress Constitutional Narrative: Middle-aged female, appears older than stated age, lethargic appearing but was alert and oriented x 3, answering some questions with short appropriate responses, otherwise laying back comfortably in bed and in no acute distress. General Appearance: cooperative and comfortable Orientation / Consciousness: lethargic HEENT normocephalic, head/scalp atraumatic, hearing grossly normal bilaterally, nasal mucous membranes and turbinates normal and moist oral mucous membranes Eyes PERRL, EOMs intact bilaterally and conjunctivae normal Neck full ROM Chest inspection of chest normal Resp normal respiratory effort, normal air movement, no use of accessory muscles and clear to auscultation bilaterally Cardio regular rate, regular rhythm, no murmurs and peripheral pulses 2+ throughout GI normal to inspection, nondistended, normoactive bowel sounds, soft to palpation, non-tender and non-distended Back/Spine normal ROM Extremity normal to inspection, full ROM and no pedal edema Skin no rashes or lesions noted Neuro moves all extremities and no focal motor deficits Results Lab / Micro Data 04/11/25 12:53 04/11/25 14:56 Labs: Laboratory Results - last 24 hr 04/11/25 11:03: POC Glucose 100 04/11/25 12:53: WBC 8.0, RBC 3.66 L, Hgb 11.0 L, Hct 35.5 L, MCV 97.0, MCH 30.1, MCHC 31.0 L, RDW Std Deviation 60.2 H, RDW Coeff of Fior 16.7 H, Plt Count 205, MPV 10.8, Immature Gran % (Auto) 0.300, Neut % (Auto) 83.6 H, Lymph % (Auto) 8.6 L, [place] % (Auto) 6.0, Eos % (Auto) 1.0, Baso % (Auto) 0.5, Absolute Neuts (auto) 6.7, Absolute Lymphs (auto) 0.69 L, Nucleated RBC % 0, Sodium 141, Potassium 5.2 H, Chloride 100, Carbon Dioxide 24.9, Anion Gap 16 H, BUN 48 H, Creatinine 5.04 H, Estim Creat Clear Calc 12.58 L, Est GFR (MDRD) Non-Af 9 L, BUN/Creatinine Ratio 9.4 L, Glucose 122 H, Calcium 9.4, Troponin T High Sens 120 H* 04/11/25 14:01: Urine Color Yellow, Urine Clarity Clear, Urine pH 8.0, Ur Specific [place] 1.010, Urine Protein 500 H, Urine Glucose (UA) 100 H, Urine Ketones Negative, Urine Occult Blood 10 H, Urine Nitrite Negative, Urine Bilirubin Negative, Urine Urobilinogen Normal, Ur Leukocyte Esterase Negative, Urine RBC 0-5 SEEN, Urine WBC 0-5 SEEN, Ur Squamous Epith Cells 0-5 SEEN, Ur Transition Epith Cell 0-5 SEEN, Urine Bacteria 0 SEEN, Urine Mucus 0 SEEN 04/11/25 14:56: Potassium 5.2 H, Troponin T Hi Sens 2 Hr 116 H* Rhythm Strip Rhythm Strip: Sinus Rhythm Rate: 90 Ectopy: None Imaging Radiology Impression Chest X-Ray 04/11/25 13:30 IMPRESSION: No acute pulmonary process Reading Location: [facility] Assessment & Plan Assessment/Plan (1) Wide-complex tachycardia: PLAN: Plan Patient is a 59-year-old female who presented to [facility] ED on 04/11/2025 with altered mental status and lethargy. She had an episode of wide-complex V. tach in the ED requiring admission for further monitoring. 1. Suspected episode of wide-complex V. tach; history of CAD with stenting, stage II diastolic dysfunction, hypertension, hyperlipidemia ? Admit under inpatient status to ICU. Cardiology consulted. Has history of CAD with stenting back in 2020. Last echo in 12/2023 showed EF 65%, stage II diastolic dysfunction, no other abnormalities noted. Had apparent run of wide-complex V. tach of about 15 to 20 seconds in the ED. This abated on its own. EKG prior to episode showed normal sinus rhythm with mildly prolonged QT of 503. Patient notably is on methadone as below. Unclear from rhythm strip if more consistent with wide-complex V. tach versus SVT with aberrancy. Cardiology recommended admission to the ICU on cardiac monitoring but not starting any antiarrhythmic medication at this time. Continue home Coreg, aspirin, statin, hydralazine. Appreciate cardiology recommendations. 2. Altered mental status with lethargy, improving ? Presumably due to home methadone. Patient is on methadone 2.5 mg 3 times daily. On review of OARRS, has been on this since late December. Presented with AMS and lethargy that improved drastically with Narcan leading to severe agitation. Given dose of IV Ativan for agitation with improvement. Unclear on why low-dose of methadone would cause this response or if more medication or an alternative opiate was taken as well. Will continue home methadone. Continue Ativan 0.5 mg daily as needed as well. Monitor. 3. Mild hyperkalemia in setting of ESRD on HD ? Nephrology consulted. Potassium 5.2 on admit. Is on HD Tuesday. Will treat hyperkalemia medically as needed but suspect patient will have dialysis run tomorrow. 4. Chronic debility with chronic right foot deformity and history of diabetic foot infections ? PT/OT/case management consulted. Patient currently resides in alf and suspect she will return there at discharge. Has been following with podiatry for chronic right foot ulcer with necrosis of the bone. Podiatry is noted that patient is a poor surgical candidate due to diabetic neuropathy, ESRD, noncompliance and poor nutritional status so right foot is being managed conservatively. Chronic medical conditions: ? Type 2 diabetes mellitus with diabetic neuropathy: Glucose 122 on admit. Will treat with sliding scale insulin with meals while inpatient, adjust as needed. ? Seizure disorder: Continue home Keppra. ? Hypothyroidism: Continue home Synthroid. ? Chronic pain syndrome: Continue home methadone as above. ? GERD: Continue home PPI and sucralfate. ? Anxiety/depression: Continue home paroxetine and Ativan daily as needed. ? Chronic anemia: Hemoglobin 11.0 on admit, at baseline. DVT prophylaxis: Heparin subcu CODE STATUS: Full code, unverified Expected disposition: Back to nursing facility, [facility] Total clinical time spent by myself addressing the patient's medical issues, reviewing all the data, and collaborating with patient's care team: 75 minutes. Charges/Coding Visit Charges Inpatient E&M: 48514 Init Hosp L3
[2025-04-11 18:23] LABS: Magnesium 2.3 mg/dL (1.5-2.2)
[2025-04-11] MEDS: Lactobacillis Acidophilus 1 CAP PO ×2 (18:46→21:17)
[2025-04-11] MEDS: Pramipexole Di-HCl 0.125 MG Tablet PO (21:17)
[2025-04-11] MEDS: Heparin Injection (Vial) 5,000 UNIT/ML VIAL 5000 UNIT SC (21:18)
[2025-04-11] MEDS: Glycerin/Hypromellose/PEG400 15 ml Bottle 1 DRP OPHTHALMIC (21:19)
[2025-04-11] MEDS: MELATONIN 10 MG TABLET 5 MG PO (21:20)
[2025-04-12] VITALS (34 sets, daily range): BP systolic 131–199; BP diastolic 55–118; PULSE 62–89; RESP 11–32; TEMP 35.7–37.2; O2SAT 90–100; BMI 26.8; BMI 27.5
[2025-04-12] MEDS: 0.9% Saline Lock 10 ML Syringe IV ×4 (02:11→21:44)
[2025-04-12] MEDS: Heparin Injection (Vial) 5,000 UNIT/ML VIAL 5000 UNIT SC ×2 (05:45→21:36)
[2025-04-12 06:02] LABS: Hematocrit 29.6 % (37-47); Hemoglobin 9.3 g/dL (12.0-15.0); Mean Corp Hgb Conc 31.4 g/dL (32-36); Mean Corpuscular Volume 96.4 fL (81-99); Mean Platelet Vol. 10.9 fl (6.2-12.0); Platelet Count 193 K/mm3 (150-450); RBC Distribution Width CV 16.5 % (11.6-14.6); RBC Distribution Width SD 57.8 fl (35.1-43.9); Red Blood Count 3.07 M/mm3 (4.2-5.4); White Blood Count 4.9 K/mm3 (4.4-11.0)
[2025-04-12 06:38] LABS: Anion Gap 12 (5-15); BUN 56 mg/dL (4-19); BUN/Creat Ratio 9.6 RATIO (10-20); Calcium,Total 8.3 mg/dL (7.6-11.0); Carbon Dioxide 28.0 mmol/L (21.0-32.0); Chloride 100 mmol/L (98-108); Estimated Creatinine Clearance 10.23 ml/min (50-250); Glucose 109 mg/dL (70-99); Potassium 5.0 mmol/L (3.3-5.1)
--- NOTE | 2025-04-12 07:03 | PN.HOSP_ITS ---
Reason for Visit Reason for Visit: Diagnoses Tachycardia, unspecified (04/11/25) Objective Data Objective Data Vital Signs: Vital Signs Temp Pulse Resp BP Pulse Ox O2 Del Method O2 Flow Rate 98.1 F 65 13 161/70 H 100 Nasal Cannula 2 04/12/25 07:00 04/12/25 07:00 04/12/25 07:00 04/12/25 07:00 04/12/25 07:00 04/12/25 07:00 04/12/25 07:00 Oxygen Flow Rate (L/min) 2 Oxygen Delivery Method Nasal Cannula Weight: 73 kg Body Mass Index (BMI) 26.8 Intake & Output: Intake and Output for Last 24 Hours 04/10/25 04/11/25 04/12/25 23:59 23:59 23:59 Intake Total 0 / 0 Output Total 150 / 150 Balance 0 / -40 -150 / -150 Lab / Micro Data 04/12/25 05:51 04/12/25 05:51 Labs: Laboratory Results - last 24 hr 04/11/25 11:03: POC Glucose 100 04/11/25 12:53: WBC 8.0, RBC 3.66 L, Hgb 11.0 L, Hct 35.5 L, MCV 97.0, MCH 30.1, MCHC 31.0 L, RDW Std Deviation 60.2 H, RDW Coeff of Fior 16.7 H, Plt Count 205, MPV 10.8, Immature Gran % (Auto) 0.300, Neut % (Auto) 83.6 H, Lymph % (Auto) 8.6 L, [place] % (Auto) 6.0, Eos % (Auto) 1.0, Baso % (Auto) 0.5, Absolute Neuts (auto) 6.7, Absolute Lymphs (auto) 0.69 L, Nucleated RBC % 0, Sodium 141, Potassium 5.2 H, Chloride 100, Carbon Dioxide 24.9, Anion Gap 16 H, BUN 48 H, Creatinine 5.04 H, Estim Creat Clear Calc 12.58 L, Est GFR (MDRD) Non-Af 9 L, BUN/Creatinine Ratio 9.4 L, Glucose 122 H, Calcium 9.4, Troponin T High Sens 120 H* 04/11/25 14:01: Urine Color Yellow, Urine Clarity Clear, Urine pH 8.0, Ur Specific [place] 1.010, Urine Protein 500 H, Urine Glucose (UA) 100 H, Urine Ketones Negative, Urine Occult Blood 10 H, Urine Nitrite Negative, Urine Bilirubin Negative, Urine Urobilinogen Normal, Ur Leukocyte Esterase Negative, Urine RBC 0-5 SEEN, Urine WBC 0-5 SEEN, Ur Squamous Epith Cells 0-5 SEEN, Ur Transition Epith Cell 0-5 SEEN, Urine Bacteria 0 SEEN, Urine Mucus 0 SEEN 04/11/25 14:56: Potassium 5.2 H, Phosphorus 3.7, Magnesium 2.3 H, Troponin T Hi Sens 2 Hr 116 H* 04/11/25 16:52: Troponin T Hi Sens 4Hr 114 H* 04/11/25 21:16: POC Glucose 123 H 04/12/25 05:51: WBC 4.9, RBC 3.07 L, Hgb 9.3 L, Hct 29.6 L, MCV 96.4, MCH 30.3, MCHC 31.4 L, RDW Std Deviation 57.8 H, RDW Coeff of Fior 16.5 H, Plt Count 193, MPV 10.9, Sodium 140, Potassium 5.0, Chloride 100, Carbon Dioxide 28.0, Anion Gap 12, BUN 56 H, Creatinine 5.80 H, Estim Creat Clear Calc 10.23 L, Est GFR (MDRD) Non-Af 8 L, BUN/Creatinine Ratio 9.6 L, Glucose 109 H, Calcium 8.3 Radiography Diagnostic Testing: Radiology Impression Chest X-Ray 04/11/25 13:30 IMPRESSION: No acute pulmonary process Reading Location: [id number] Rhythm Strip Rhythm Strip: Sinus Rhythm Rate: 90 Ectopy: None Charges/Coding Visit Charges Inpatient E&M: 35648 Subs Hosp L2
--- NOTE | 2025-04-12 07:46 | NURSING ---
Call placed to Dr. Bender's answering service for nephrology consult.
--- NOTE | 2025-04-12 08:06 | NURSING ---
austin Pandey, HD nurse, hold all am meds until after dialysis is complete.
[2025-04-12] MEDS: 0.9% Normal Saline 1,000 ML IV.SOLN. 1000 ML OPERA.SITE (11:13)
[2025-04-12] MEDS: PureFlow B 2K Dialysis Soln 1 BAG 6 BAG PF (12:51)
[2025-04-12] MEDS: Lactobacillis Acidophilus 1 CAP PO ×2 (12:52→21:36)
--- NOTE | 2025-04-12 13:15 | PCM.DC.SUM ---
Providers Date of Admission: 04/11/25 Date of Discharge: 04/12/25 Primary Care Physician: NOT DEFINED Consultations 04/11/25 18:04 Consult: Cardiology Routine Consulting Provider: Angel Rivera Reason for Consult: wide complex tachycardia EMERGENT Consult: No MD Notified: Yes Date Notified: 04/11/25 Time Notified: 17:31 Method of Notification: ED Physician Initiated Consult: Nephrology Routine Consulting Provider: Angel Joel Reason for Consult: ESRD on HD EMERGENT Consult: No MD Notified: No Date Notified: 04/11/25 Time Notified: 17:31 Reason For Visit: WIDE COMPLEX TACHYCARDIA Diagnosis Discharge Diagnosis (1) Wide-complex tachycardia: Status: Acute Code(s): R00.0 - Tachycardia, unspecified Medications at Discharge Home Medications paroxetine HCl 20 mg tablet 30 mg PO QHS DEPRESSION 07/07/21 ascorbic acid (vitamin C) 500 mg tablet (Vitamin C) 500 mg PO BID supplement 05/05/22 pantoprazole 40 mg tablet,delayed release 40 mg PO BIDCM GERD 07/19/22 folic acid 800 mcg tablet 0.8 mg PO DAILY supplement 12/16/23 levothyroxine 25 mcg tablet 25 mcg PO DAILY thyroid 12/16/23 aspirin 81 mg capsule 81 mg PO DAILY blood thinner #30 caps 12/26/23 atorvastatin 40 mg tablet 40 mg PO QHS cholesterol 03/18/24 acetaminophen 325 mg tablet 650 mg PO Q6H PRN fever or pain 07/09/24 insulin lispro 100 unit/mL subcutaneous pen (Humalog KwikPen (U-100) Insulin) See Protocol subcut TIDAC blood sugar 09/13/24 L.acidophil,salivari-Bifido bifidum-Strep thermoph 175 mg capsule 1 cap PO 4X/DAY #0 caps 09/21/24 nutrition tx glu intol,lac-free,soy-fiber 0.06 gram-1.2 kcal/mL liquid (Glucerna 1.2 Howie) 120 ml PO TIDCM #0 mL 09/21/24 carvedilol 25 mg tablet 12.5 mg PO QHS blood pressure 12/06/24 gabapentin 100 mg capsule 100 mg PO TID pain 12/06/24 levetiracetam 500 mg tablet 250 mg PO QHS 12/06/24 levetiracetam 500 mg tablet 500 mg PO BID 12/06/24 ropinirole 0.25 mg tablet 0.25 mg PO QHS 12/06/24 artificial tears(pchznaw-vxfmquaq-ezmmhek) 0.1 %-0.3 %-0.2 % eye drops (GenTeal Tears Moderate) 1 drp ophthalmic (eye) QHS 02/28/25 hydrocortisone 1 % topical cream (Cortisone (hydrocortisone)) 1 applic topical BID PRN itching 02/28/25 hydroxyzine HCl 25 mg tablet 25 mg PO TID PRN itching 02/28/25 ondansetron HCl 4 mg tablet 4 mg PO Q8H 02/28/25 carvedilol 12.5 mg tablet (Coreg) 12.5 mg PO SUTUTHSA 03/18/25 hydralazine 100 mg tablet 100 mg PO BID 03/18/25 lorazepam 0.5 mg tablet 0.5 mg PO DAILY anxiety 03/18/25 melatonin 5 mg capsule 5 mg PO QHS 03/18/25 sucralfate 1 gram tablet 1 g PO [facility] indigestion 03/18/25 acetaminophen 500 mg capsule 1,000 mg PO QHS 04/11/25 clobetasol-propionate 1 applic topical CONT PRN rash 04/11/25 insulin lispro 100 unit/mL subcutaneous pen (Humalog KwikPen (U-100) Insulin) 5 unit subcut [facility] 04/11/25 methadone 5 mg tablet 2.5 mg (1/2 x 5 mg) PO BID 30 days #30 tabs 04/12/25 Hospital Course Operations None Procedures None Summary of Care Provided Minutes Spent on Discharge: 25 Hospital Course: Ms Carrillo is a 59-year-old white female who presents emergency department at [facility] on 04/11/2025 due to altered mental status and lethargy. She has end-stage renal disease on dialysis and has chronic pain issues as well and takes chronic methadone 2.5 mg p.o. 3 times daily. She currently resides in assisted living and presented from assisted living to the emergency department for the above chief complaint. Per [facility] review she was initiated on scheduled low-dose methadone by her PCP in late December for pain control. Patient reported that she had taken her usual dose of methadone and on the day of presentation had not taken any extra tablets and had not missed any dialysis. On arrival she was noted to have pinpoint pupils and was given Narcan which woke her up immediately. She was severely agitated as expected for a chronic methadone user in the setting of Narcan and required some Ativan to control behavior. During that time of agitation she was noted to have a short episode of wide-complex tachycardia. Her electrolytes were not markedly abnormal. The case was discussed with cardiology who recommended observation and treating her hyperkalemia with dialysis. She was admitted to the ICU and monitored overnight. Dialysis was performed on 04/12/2025. Potassium on the day of dialysis was 5.0 with magnesium of 2.3. She was monitored on telemetry from the time of admission to the time of discharge and had no further events. I discussed the case extensively with cardiology. She had an echocardiogram within the last 6 months that demonstrated normal EF. Dr. Rivera felt that the arrhythmia was likely induced by narcotic reversal, Ativan, and metabolic abnormalities and given the fact that she had no further events he felt she was stable for discharge home with follow-up with in the outpatient setting with cardiology. Patient was intermittently tearful during her hospital course and we did question whether or not she took any extra medications. She adamantly denied this. She also denied any suicidal ideation or thoughts/ideas. She was anxious to get home from 12 April and see [facility]. Patient was able to be discharged home in stable condition on 04/12/2025. Will reduce her methadone dose from 2.53 times daily to 2.5 twice daily and have her follow-up with her primary care physician. She has wounds on her feet and already is followed up by podiatry for this. They show no signs of acute infection. She should follow-up with her primary care physician within the next week. Unfortunately, toxicology screen was not done at the time of admission to further assess. I do think she possibly took an extra dose of medication and that was the etiology of her altered mental status at the time of admission. Discharge diagnoses: Toxic/metabolic encephalopathy--> suspect narcotic induced Wide-complex tachycardia CAD Stage II diastolic dysfunction Hypertension Hyperlipidemia Hyperkalemia-resolved Chronic debility Charcot foot-right History of diabetic foot infections [id number] Seizure disorder Hypothyroidism Chronic pain syndrome GERD Anxiety Depression Chronic anemia Peripheral vascular disease Patient's conical status improved more quickly than anticipated the time of admission and she was able to be discharged in less than 2 midnights of her hospitalization Physical Exam Const alert, oriented x3, no apparent distress, average body habitus, no limitations and well nourished; Negative for healthy appearing Constitutional Narrative: Upper middle-aged, white female who appears much older stated age, lying in bed, on dialysis, appears comfortable, nontoxic General Appearance: cooperative, comfortable, well kempt and well developed Orientation / Consciousness: oriented to person, oriented to place and oriented to time Exam Limitations: no limitations HEENT normocephalic, head/scalp atraumatic and moist oral mucous membranes Neck supple Neck Narrative: Trachea midline Resp normal respiratory effort, no retractions, no use of accessory muscles and clear to auscultation bilaterally Auscultation: Negative for rales, rhonchi or wheezes Cardio regular rate, regular rhythm, S1 normal heart sound, S2 normal heart sound, no murmurs, no rub, no gallops and no clicks Skin No no wounds, no jaundice, no petechiae and no mottling Skin Narrative: Patient with multiple noninfected appearing wounds bilateral feet Neuro oriented x3, moves all extremities and no focal motor deficits Speech: speech normal Psych Psych Narrative: Intermittently tearful, mood is somewhat labile but patient makes good eye contact and interacts appropriately Weight / BMI Weight Weight: 73 kg Body Mass Index (BMI) 26.8 ABG / Lab / Microbiology Data 04/12/25 05:51 04/12/25 05:51 Laboratory: Laboratory Results - last 24 hr 04/11/25 12:53: Troponin T High Sens 120 H* 04/11/25 14:01: Urine Color Yellow, Urine Clarity Clear, Urine pH 8.0, Ur Specific Durbin 1.010, Urine Protein 500 H, Urine Glucose (UA) 100 H, Urine Ketones Negative, Urine Occult Blood 10 H, Urine Nitrite Negative, Urine Bilirubin Negative, Urine Urobilinogen Normal, Ur Leukocyte Esterase Negative, Urine RBC 0-5 SEEN, Urine WBC 0-5 SEEN, Ur Squamous Epith Cells 0-5 SEEN, Ur Transition Epith Cell 0-5 SEEN, Urine Bacteria 0 SEEN, Urine Mucus 0 SEEN 04/11/25 14:56: Potassium 5.2 H, Phosphorus 3.7, Magnesium 2.3 H, Troponin T Hi Sens 2 Hr 116 H* 04/11/25 16:52: Troponin T Hi Sens 4Hr 114 H* 04/11/25 21:16: POC Glucose 123 H 04/12/25 05:51: WBC 4.9, RBC 3.07 L, Hgb 9.3 L, Hct 29.6 L, MCV 96.4, MCH 30.3, MCHC 31.4 L, RDW Std Deviation 57.8 H, RDW Coeff of Fior 16.5 H, Plt Count 193, MPV 10.9, Sodium 140, Potassium 5.0, Chloride 100, Carbon Dioxide 28.0, Anion Gap 12, BUN 56 H, Creatinine 5.80 H, Estim Creat Clear Calc 10.23 L, Est GFR (MDRD) Non-Af 8 L, BUN/Creatinine Ratio 9.6 L, Glucose 109 H, Calcium 8.3 04/12/25 11:08: POC Glucose 96 Radiography Diagnostic Testing: Radiology Impression Chest X-Ray 04/11/25 13:30 IMPRESSION: No acute pulmonary process Reading Location: [facility] D/ Instructions Discharge Diet: Low fat / Low cholesterol and Renal Diet Discharge Activity: Return to Normal Activity DC O2, CPAP, BIPAP Needs Home O2 Discharge instructions: No Meaningful Use Info Meaningful Use Meaningful Use Diagnoses (Choose all that apply): None applicable Ischemic Stroke Statin Dosing Therapy Reference: STATIN DOSE THERAPY REFERENCE: * Patients > 75 years receive moderate or high dose statin therapy. * Patients 75 years or YOUNGER should receive HIGH intensity statin dose unless contraindicated. You will be required to document reason for non-treatment if statin daily dose does not meet guidelines. HIGH DOSE STATIN THERAPY DAILY Atorvastatin > than or = to 40 mg Rosuvastatin > than or = to 20 mg Amlodipine + Atorvastatin > than or = to 2.5/40 mg Ezetimibe + Simvastatin 10/80 mg Simvastatin 80mg Discharge Plan Admission Admit Date/Time: 04/11/25 17:26 Primary Reason for Your Visit: Altered mental status Attending Provider: Raquel Mancilla Primary Care Provider: NOT,DEFINED Consulting Providers: Angel Rivera; Neal Walton Discharge Orders/Prescriptions Prescriptions: Continued levetiracetam 500 mg tablet 250 mg PO QHS Rx Instructions: M-W-F 500mg levetiracetam 500 mg tablet 500 mg PO BID ropinirole 0.25 mg tablet 0.25 mg PO QHS Rx Instructions: administer 1-3 hours before bedtime artificial tear([id number]) [GenTeal Tears Moderate] 0.1-0.3-0.2 % drops 1 drp ophthalmic (eye) QHS hydrocortisone [Cortisone (hydrocortisone)] 1 % cream 1 applic topical BID PRN (Reason: itching) hydroxyzine HCl 25 mg tablet 25 mg PO TID PRN (Reason: itching) ondansetron HCl 4 mg tablet 4 mg PO Q8H paroxetine HCl 20 mg tablet 30 mg PO QHS Patient Comments: TAKE 1 TABLET BY MOUTH EVERY DAY IN THE EVENING ascorbic acid (vitamin C) [Vitamin C] 500 mg Tablet 500 mg PO BID pantoprazole 40 mg tablet,delayed release (DR/EC) 40 mg PO BIDCM gabapentin 100 mg capsule 100 mg PO TID atorvastatin 40 mg tablet 40 mg PO QHS carvedilol 25 mg tablet 12.5 mg PO QHS acetaminophen 325 mg Tablet 650 mg PO Q6H PRN (Reason: fever or pain) insulin lispro [Humalog KwikPen Insulin] 100 unit/mL Insulin Pen See Protocol subcut TIDAC Protocol: 4. Sliding Scale Insulin High-Med Dosing Condition: 150-199 mg/dl = 2 units Condition: 200-259 mg/dl = 4 units Condition: 260-324 mg/dl = 6 units Condition: 325-374 mg/dl = 8 units Condition: 375-409 mg/dl = 10 units Condition: 410-449 mg/dl = 11 units Condition: Greater than 449 call physician Protocol Text: Suggested for: - Patients on Total Daily Insulin Dose of 56-80 units - Patient who are known to be insulin resistant or septic HIGH MEDIUM DOSING ALGORITHM Aries,saliva-B.bif-S.therm 175 mg Capsule 1 cap PO 4X/DAY Qty: 0 0RF Glucerna 1.2 Howie 0.06-1.2 gram-kcal/mL Liquid 120 ml PO TIDCM Qty: 0 0RF folic acid 800 mcg tablet 0.8 mg PO DAILY Patient Comments: TAKE 1 TABLET BY MOUTH EVERY DAY levothyroxine 25 mcg tablet 25 mcg PO DAILY Patient Comments: TAKE 1 TABLET BY MOUTH EVERY DAY BEFORE BREAKFAST aspirin 81 mg capsule 81 mg PO DAILY Qty: 30 1RF melatonin 5 mg capsule 5 mg PO QHS carvedilol [Coreg] 12.5 mg tablet 12.5 mg PO SUTUTHSA Rx Instructions: must administer with a meal/food DO NOT ADMINISTER BEFORE DIALYSIS hydralazine 100 mg tablet 100 mg PO BID sucralfate 1 gram Tablet 1 g PO ACHS lorazepam 0.5 mg Tablet 0.5 mg PO DAILY acetaminophen 500 mg capsule 1,000 mg PO QHS clobetasol-propionate 1 applic topical CONT PRN (Reason: rash) insulin lispro [Humalog KwikPen Insulin] 100 unit/mL insulin pen 5 unit subcut ACHS Changed methadone 5 mg tablet 2.5 mg PO BID 30 Days Qty: 30 0RF Referrals / Follow Up: NOT,DEFINED [Primary Care Provider] - Zach Mitchell NP, [employer] [Med Staff - Adv Practice Prof] - See Referral Note (Call Tuesday to set up an appointment to be seen within the next 1 to 2 weeks) Disposition Disposition (needs filled in before D/C Order can be placed): Assisted Living Charges/Coding Visit Charges Inpatient E&M: 37398 Disch Hosp
--- NOTE | 2025-04-12 14:25 | PCM.CONS.C ---
Assessment & Plan Assessment/Plan (1) Chronic kidney disease on chronic dialysis: (2) Hyperkalemia, diminished renal excretion: (3) Acute painful diabetic polyneuropathy: (4) Psychomotor agitation: (5) Wide-complex tachycardia: PLAN: 59-year-old patient seen and evaluated at [facility] ED with altered mentation and lethargy She had a short run of wide-complex tachycardia while in the ED She was on methadone and given Narcan in ED she became very more agitated requiring Ativan IV. On cardiac consult requested to evaluate for the wide-complex tachycardia Noted serum potassium mildly elevated 5.2 Patient end-stage renal disease on hemodialysis Diabetes mellitus Has been on methadone. Has a recurrent admission to the hospital. With chronic debility and chronic right foot deformity and history of diabetic foot infection as seen previously by the vascular team. Patient was admitted over the night in ICU for athletic monitor she remains stable clinically. On review of previous record she had echocardiogram in December 2023 showed EF around 65 with stage II diastolic dysfunction no other abnormality noted in the echo. The wide-complex tachycardia was for a short. [id number] converted to sinus without starting on any antiarrhythmic. Cardiac care plan; Patient with known history of CAD prior stenting in 2020 No symptoms of chest pain. The mild elevation of high sensitive troponin is type II WA with demand myocardial ischemia in the setting of end-stage renal disease on hemodialysis. Noted patient has mild hyperkalemia with serum potassium around 5.2 in the setting of end-stage renal disease on hemodialysis. I reviewed all the current evaluation here in the hospital including the lab result with electrolytes magnesium and potassium. I recommend patient to follow-up with the mold stripper earlier An established mold stripper is Patient stable she will be discharged to [facility]/assisted living facility/usp. Angel Rivera MD,[facility] acid dumper HPI Consult Data Date of Consult: 04/12/25 HPI Narrative Reason for Consultation: Altered mental status/wide-complex tachycardia HPI Narrative: DIONY ROCHA, is a 59 F who presents [facility] Medical History History of stress test History of echocardiogram History of transesophageal echocardiography (HONG) History of TIA (transient ischemic attack) History of myocardial infarction Diabetes mellitus type 2 with complications Non-pressure chronic ulcer of ankle with fat layer exposed Secondary hyperparathyroidism Non-pressure chronic ulcer of right ankle with necrosis of muscle Non-pressure chronic ulcer of left ankle with necrosis of muscle Adverse effect of synthetic cannabinoids, initial encounter Avery coma scale score 13-15, at arrival to emergency department Acute alteration in mental status Short Achilles tendon (acquired), left ankle Short Achilles tendon (acquired), right ankle Acquired cavovarus deformity of left foot Acquired cavovarus deformity of right foot Type 2 diabetes mellitus with diabetic polyneuropathy Adult failure to thrive ESRD (end stage renal disease) on dialysis Drowsiness Mental status, decreased Carotid artery stenosis MSSA bacteremia ESRD on hemodialysis Osteomyelitis Anemia in chronic illness Type 2 diabetes mellitus Foot osteomyelitis, left Chronic renal disease, stage 4, severely decreased glomerular filtration rate (GFR) between 15-29 mL/min/1.73 square meter Acute on chronic anemia Chronic ulcer of right foot with necrosis of bone Chronic kidney disease, stage 4 (severe) Diabetes mellitus with diabetic polyneuropathy Diabetic foot ulcers Chronic kidney disease, stage 3b Charcot's joint, right ankle and foot Charcot's joint, left ankle and foot Cellulitis Acute lumbar radiculopathy Essential hypertension Adult failure to thrive COVID-19 (08/28/21) Chronic ulcer of right leg with fat layer exposed Ulcer of left foot with fat layer exposed Chronic ulcer of right foot with fat layer exposed Hyperparathyroidism, secondary renal Iron deficiency anemia Bilateral edema of lower extremity Chronic foot pain Non-pressure chronic 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 layer exposed Debility Charcot's joint of right foot Diabetes Non-smoker Myocardial infarct Hypertension TIA (transient ischemic attack) Amputation foot, bilat Non-pressure chronic ulcer of other part of left foot with fat layer exposed 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 Ulcer of left foot with necrosis of muscle Ulcer of left foot with muscle involvement without evidence of necrosis Anxiety and depression Diabetic infection of left foot Delayed wound healing Non-compliance Diabetic polyneuropathy Ischemic cardiomyopathy Obesity (BMI 30.0-34.9) Acquired varus deformity of left foot Acquired varus deformity of right foot Atherosclerosis of [place] coronary artery of [place] heart without angina pectoris Hemoglobin A1c greater than 9.0% NSTEMI (non-ST elevated myocardial infarction) (09/20/18) GERD (gastroesophageal reflux disease) HLD (hyperlipidemia) Back pain, chronic RLS (restless legs syndrome) Home Medications ?Medication ?Instructions ?Recorded ?Last Taken ?Type paroxetine HCl 20 mg tablet 30 mg PO QHS DEPRESSION 07/07/21 04/07/22 History ascorbic acid (vitamin C) 500 mg 500 mg PO BID supplement 05/05/22 Unknown History tablet (Vitamin C) pantoprazole 40 mg tablet,delayed 40 mg PO BIDCM GERD 07/19/22 Unknown History release folic acid 800 mcg tablet 0.8 mg PO DAILY supplement 12/16/23 Unknown History levothyroxine 25 mcg tablet 25 mcg PO DAILY thyroid 12/16/23 Unknown History aspirin 81 mg capsule 81 mg PO DAILY blood thinner #30 12/26/23 Unknown Rx caps atorvastatin 40 mg tablet 40 mg PO QHS cholesterol 03/18/24 06/26/24 History acetaminophen 325 mg tablet 650 mg PO Q6H PRN fever or pain 07/09/24 Unknown History insulin lispro 100 unit/mL See Protocol subcut TIDAC blood 09/13/24 Unknown History subcutaneous pen (Humalog KwikPen sugar (U-100) Insulin) L.acidophil,salivari-Bifido 1 cap PO 4X/DAY #0 caps 09/21/24 Unknown Rx bifidum-Strep thermoph 175 mg capsule nutrition tx glu 120 ml PO TIDCM #0 mL 09/21/24 Unknown Rx intol,lac-free,soy-fiber 0.06 gram-1.2 kcal/mL liquid (Glucerna 1.2 Howie) carvedilol 25 mg tablet 12.5 mg PO QHS blood pressure 12/06/24 Unknown History gabapentin 100 mg capsule 100 mg PO TID pain 12/06/24 Unknown History levetiracetam 500 mg tablet 250 mg PO QHS 12/06/24 Unknown History levetiracetam 500 mg tablet 500 mg PO BID 12/06/24 Unknown History ropinirole 0.25 mg tablet 0.25 mg PO QHS 12/06/24 Unknown History artificial 1 drp ophthalmic (eye) QHS 02/28/25 Unknown History tears(gdgmdtz-iivkszmy-urlnskz) 0.1 %-0.3 %-0.2 % eye drops (GenTeal Tears Moderate) hydrocortisone 1 % topical cream 1 applic topical BID PRN itching 02/28/25 Unknown History (Cortisone (hydrocortisone)) hydroxyzine HCl 25 mg tablet 25 mg PO TID PRN itching 02/28/25 Unknown History ondansetron HCl 4 mg tablet 4 mg PO Q8H 02/28/25 Unknown History carvedilol 12.5 mg tablet (Coreg) 12.5 mg PO SUTUTHSA 03/18/25 Unknown History hydralazine 100 mg tablet 100 mg PO BID 03/18/25 Unknown History lorazepam 0.5 mg tablet 0.5 mg PO DAILY anxiety 03/18/25 Unknown History melatonin 5 mg capsule 5 mg PO QHS 03/18/25 Unknown History sucralfate 1 gram tablet 1 g PO ACHS indigestion 03/18/25 Unknown History acetaminophen 500 mg capsule 1,000 mg PO QHS 04/11/25 Unknown History clobetasol-propionate 1 applic topical CONT PRN rash 04/11/25 Unknown History insulin lispro 100 unit/mL 5 unit subcut ACHS 04/11/25 Unknown History subcutaneous pen (Humalog KwikPen (U-100) Insulin) methadone 5 mg tablet 2.5 mg (1/2 x 5 mg) PO BID 30 days 04/12/25 Unknown Rx #30 tabs Allergy/AdvReac Type Severity Reaction Status Date / Time fentanyl Allergy Other Verified 04/11/25 10:57 oxycodone (From OxyContin) Allergy sob Verified 04/11/25 10:57 Penicillins Allergy swelling Verified 04/11/25 10:57 in throat vancomycin Allergy Itching Verified 04/11/25 10:57 metronidazole AdvReac Nausea Verified 04/11/25 10:57 Family History Mother Diabetes CVA (cerebral vascular accident) Brother CAD (coronary artery disease) CABG X 3 Cancer testicular Diabetes Brother CAD (coronary artery disease) CABG X3 Diabetes Brother CAD (coronary artery disease) Stents Diabetes Sister CAD (coronary artery disease) CABG x 3 CVA (cerebral vascular accident) Diabetes Surgical History History of cardiac catheterization History of History of foot surgery History of bilateral carpal tunnel release History of rotator cuff surgery History of coronary artery stent placement (12/31/20) Social History household members: none number of children: 2 current occupational status: disabled Smoking Status: Never smoker alcohol intake: never substance use type: does not use caffeine: Yes Type: carbonated beverages Number of servings: 2 Physical Exam Cardio Cardio Narrative: Patient seen and evaluated at bedside along with the nursing staff and discussed cardiac care plan Her athletic monitor showed normal sinus She is alert orientated not in acute distress Cardiac examination S1-S2 regular Chest examination clear to auscultation bilateral. Risk Stratification Risk Stratification Applicable: No Objective Data Vital Signs: Vital Signs Temp Pulse Resp BP Pulse Ox O2 Del Method O2 Flow Rate 96.7 F L 75 13 153/69 H 95 Room Air 2 04/12/25 12:00 04/12/25 12:51 04/12/25 12:00 04/12/25 12:51 04/12/25 12:00 04/12/25 12:00 04/12/25 10:45 Oxygen Flow Rate (L/min) 2 Oxygen Delivery Method Room Air Weight: 160 lb 14.999 oz Body Mass Index (BMI) 26.8 Intake & Output: Intake and Output for Last 24 Hours 04/10/25 04/11/25 04/12/25 23:59 23:59 23:59 Intake Total 0 / 0 600 / 600 Output Total 1974 / 1974 Balance 0 / -40 -1375 / -1375 Lab / Micro Data 04/12/25 05:51 04/12/25 05:51 Labs: Laboratory Results - last 24 hr 04/11/25 14:01: Urine Color Yellow, Urine Clarity Clear, Urine pH 8.0, Ur Specific [place] 1.010, Urine Protein 500 H, Urine Glucose (UA) 100 H, Urine Ketones Negative, Urine Occult Blood 10 H, Urine Nitrite Negative, Urine Bilirubin Negative, Urine Urobilinogen Normal, Ur Leukocyte Esterase Negative, Urine RBC 0-5 SEEN, Urine WBC 0-5 SEEN, Ur Squamous Epith Cells 0-5 SEEN, Ur Transition Epith Cell 0-5 SEEN, Urine Bacteria 0 SEEN, Urine Mucus 0 SEEN 04/11/25 14:56: Potassium 5.2 H, Phosphorus 3.7, Magnesium 2.3 H, Troponin T Hi Sens 2 Hr 116 H* 04/11/25 16:52: Troponin T Hi Sens 4Hr 114 H* 04/11/25 21:16: POC Glucose 123 H 04/12/25 05:51: WBC 4.9, RBC 3.07 L, Hgb 9.3 L, Hct 29.6 L, MCV 96.4, MCH 30.3, MCHC 31.4 L, RDW Std Deviation 57.8 H, RDW Coeff of Fior 16.5 H, Plt Count 193, MPV 10.9, Sodium 140, Potassium 5.0, Chloride 100, Carbon Dioxide 28.0, Anion Gap 12, BUN 56 H, Creatinine 5.80 H, Estim Creat Clear Calc 10.23 L, Est GFR (MDRD) Non-Af 8 L, BUN/Creatinine Ratio 9.6 L, Glucose 109 H, Calcium 8.3 04/12/25 11:08: POC Glucose 96 Rhythm Strip Rhythm Strip: Sinus Rhythm Rate: 90 Ectopy: None Cardiology Labs/Tests 04/11/25 14:01: Urine Color Yellow, Urine Clarity Clear, Urine pH 8.0, Ur Specific [place] 1.010, Urine Protein 500 H, Urine Glucose (UA) 100 H, Urine Ketones Negative, Urine Occult Blood 10 H, Urine Nitrite Negative, Urine Bilirubin Negative, Urine Urobilinogen Normal, Ur Leukocyte Esterase Negative, Urine RBC 0-5 SEEN, Urine WBC 0-5 SEEN 04/11/25 14:56: Potassium 5.2 H, Phosphorus 3.7, Magnesium 2.3 H 04/12/25 05:51: WBC 4.9, RBC 3.07 L, Hgb 9.3 L, Hct 29.6 L, MCV 96.4, MCH 30.3, MCHC 31.4 L, Plt Count 193, MPV 10.9, Sodium 140, Potassium 5.0, Chloride 100, Carbon Dioxide 28.0, Anion Gap 12, BUN 56 H, Creatinine 5.80 H, Est GFR (MDRD) Non-Af 8 L, BUN/Creatinine Ratio 9.6 L, Glucose 109 H, Calcium 8.3 Rhythm: EKG: ECHO: Stress Test: Cardiac Cath: PCI: CT Surgery: Holter monitor: EPS: PPM: CXR: Chest CT Scan:
--- NOTE | 2025-04-12 14:38 | NURSING ---
attempted twice to get [employer] [place], pt's POA, for a ride for discharge but voicemail is full and RN unable to leave a message. Got ahold of pt's cousin, Caren, but she is unable to drive due to recent foot surgery. Caren was going to make some phone calls and see if she could get [facility] [place] and call RN back.
--- NOTE | 2025-04-12 16:21 | NURSING ---
pt refusing any more vital signs be taken. changed into street clothes. Pt pacing around the room and very anxious. PRN ativan given. Awaiting on transportation for discharge.
--- NOTE | 2025-04-12 19:34 | NURSING ---
1899- informed by [facility] RN that patient was refusing use of hospital monitor and hourly vitals as patient was being discharged back to [facility]. [facility] arrived at 1924 for patient. Upon getting patient pt to stretcher for transport BP 201/97. EMT's gave patient a few minutes to sit and BP remained with SBP 190-200's. 1939- scouring pads supervisor, Joellen, contacted by this RN to ask for direction. Was advised to call night time hospitalist and ask what they would like to do. 1940- Dr. Camarena contacted via phone call and informed of situation. Dr. Camarena advised this RN that we need to bring her SBP down to 160 before she can leave and if transportation not willing to wait then she can stay admitted and we will discharge if appropriate tomorrow. He gave this RN a verbal order to give her 2200 hydralazine and coreg dose now and add on a x1 dose of 0.2mg clonidine now. This RN informed [facility], as they were unable to stay to wait if pt BP responsive to PO meds, that patient will be staying. Pt transferred back to hospital bed and hooked up to equipment monitor phototypesetting. Patient confused as to why she is not leaving. Educated patient that her BP was very high and that it was unsafe for her to leave at this time. Pt agreeable. IV restarted by this RN and meds given per verbal order.
[2025-04-12] MEDS: MELATONIN 10 MG TABLET 5 MG PO (21:36)
[2025-04-12] MEDS: Glycerin/Hypromellose/PEG400 15 ml Bottle 1 DRP OPHTHALMIC (21:36)
[2025-04-12] MEDS: Pramipexole Di-HCl 0.125 MG Tablet PO (21:37)
[2025-04-13] VITALS (11 sets, daily range): BP systolic 119–178; BP diastolic 56–75; PULSE 62–66; RESP 12–20; TEMP 36.7–37; O2SAT 93–100; BMI 26.9
[2025-04-13] MEDS: 0.9% Saline Lock 10 ML Syringe IV (00:53)
[2025-04-13 00:54] LABS: Troponin T High Sens 4 HR 114 ng/L (<=14)
[2025-04-13] MEDS: Heparin Injection (Vial) 5,000 UNIT/ML VIAL 5000 UNIT SC (05:58)
--- NOTE | 2025-04-13 07:08 | PCM.HOSP.N ---
Hospitalist Note Patient was deemed medically stable for discharge and refused her afternoon hypertensive medications. At the time [facility] came to pick her up to take her back to her assisted living environment blood pressure was about 200 systolic. They refused to transport her based on her blood pressure. Nursing tried to explain that she had refused her medication however they still refused to transport her with her blood pressure being high. Discharge was held. She then took her medications. Blood pressure this morning is over 140 systolic. Patient remains medically stable for discharge and will be discharged this morning.
--- NOTE | 2025-04-13 07:53 | NS ---
Per nsg, pt refusing anuja and doesn't want other ONS at this time. Will d/c. Encourage pt to order protein w/ all meals.
== END 2025-04-13 09:20 | disposition home or self-care (01) | DRG 308 ==
LOC: ED 16:54 → ICU 17:42
PROVIDERS: Admitting Provider Hospitalist; Emergency Provider Emergency Medicine; Referring Provider Emergency Medicine; Visit Provider Internal Medicine
DX: I47.20 Ventricular tachycardia, unspecified (principal); G92.8 Other toxic encephalopathy; N18.6 End stage renal disease; I12.0 Hypertensive chronic kidney disease with stage 5 chronic kidney disease or end stage renal disease; I24.89 Other forms of acute ischemic heart disease; L97.514 Non-pressure chronic ulcer of other part of right foot with necrosis of bone; G40.909 Epilepsy, unspecified, not intractable, without status epilepticus; E11.610 Type 2 diabetes mellitus with diabetic neuropathic arthropathy; E03.9 Hypothyroidism, unspecified; D64.9 Anemia, unspecified; F32.A Depression, unspecified; T40.3X1A Poisoning by methadone, accidental (unintentional), initial encounter; E11.621 Type 2 diabetes mellitus with foot ulcer; Z99.2 Dependence on renal dialysis; E87.5 Hyperkalemia; F41.9 Anxiety disorder, unspecified; E11.51 Type 2 diabetes mellitus with diabetic peripheral angiopathy without gangrene; K21.9 Gastro-esophageal reflux disease without esophagitis; E78.5 Hyperlipidemia, unspecified; E11.42 Type 2 diabetes mellitus with diabetic polyneuropathy; E11.22 Type 2 diabetes mellitus with diabetic chronic kidney disease; I25.5 Ischemic cardiomyopathy; M54.9 Dorsalgia, unspecified; I25.10 Atherosclerotic heart disease of native coronary artery without angina pectoris; Z79.4 Long term (current) use of insulin; I25.2 Old myocardial infarction; T50.7X5A Adverse effect of analeptics and opioid receptor antagonists, initial encounter; R45.1 Restlessness and agitation; G89.4 Chronic pain syndrome; R53.81 Other malaise; Z79.82 Long term (current) use of aspirin; Z79.890 Hormone replacement therapy; Z79.899 Other long term (current) drug therapy; Z95.5 Presence of coronary angioplasty implant and graft
CPT/HCPCS: 51702; 71045; 80048; 81001; 82962; 83735; 84100; 84132; 84484; 85025; 85027; 90937; 93005; 94668; 94762; 97802; 99285; A4216; G0257

== ENCOUNTER 2025-04-18 19:02 | Emergency (ER) | payer MEDICARE, MEDICAID, SELFPAY ==
[2018-09-21 13:23] VITALS: BMI 29.3
[2025-04-18 19:04] VITALS: BP 181/82; PULSE 82; RESP 16; TEMP 36.8; O2SAT 97; BMI 27.9
[2025-04-18 19:29] VITALS: PULSE 88; RESP 14
[2025-04-18 19:31] LABS: Hematocrit 31.2 % (37-47); Hemoglobin 9.9 g/dL (12.0-15.0); Immature Granulocytes Count 0.030 X10^3/uL (0.0-0.0); Mean Corp Hgb Conc 31.7 g/dL (32-36); Mean Corpuscular Volume 97.2 fL (81-99); Mean Platelet Vol. 10.6 fl (6.2-12.0); NRBC Flagged by Analyzer 0 % (0-5); Platelet Count 267 K/mm3 (150-450); RBC Distribution Width CV 16.6 % (11.6-14.6); RBC Distribution Width SD 58.2 fl (35.1-43.9); Red Blood Count 3.21 M/mm3 (4.2-5.4); White Blood Count 7.2 K/mm3 (4.4-11.0)
[2025-04-18 19:42] VITALS: PULSE 92; RESP 13
[2025-04-18 19:45] VITALS: PULSE 88; RESP 17
[2025-04-18 20:00] VITALS: PULSE 85; RESP 25
[2025-04-18 20:35] LABS: Anion Gap 16 (5-15); BUN 52 mg/dL (4-19); BUN/Creat Ratio 9.5 RATIO (10-20); Calcium,Total 9.0 mg/dL (7.6-11.0); Carbon Dioxide 25.7 mmol/L (21.0-32.0); Chloride 101 mmol/L (98-108); Estimated Creatinine Clearance 11.31 ml/min (50-250); Glucose 56 mg/dL (70-99); Potassium 4.3 mmol/L (3.3-5.1)
--- NOTE | 2025-04-18 20:49 | EX.ED.DYSGE1 ---
HPI History of Present Illness Chief Complaint: Syncope Detail of Chief Complaint: Syncope with diaphoresis and altered mental status Informant: patient Onset/Context/Timing Onset: Today and Hours Context: Sudden Onset Timing: Intermittent Quality: Syncope with diaphoresis nausea Location: Presents from nursing facility Current Severity: Mild Maximum Severity: Severe Worsened by: Unknown per patient Relieved by: Unknown Associated Symptoms Associated Symptoms: Vagal like symptoms Narrative Narrative: Patient is a 59-year-old female. She is on hemodialysis. She is dialyzed on Tuesday, Tuesday and Tuesday. She states she went to dialysis yesterday. She has numerous medical problems. She was sent in for evaluation because of probable syncopal episode and decreased level of consciousness. She reportedly began to sweat and felt like she was going to pass out and passed out. She denies fever, chills night sweats. Denies headache, visual, ocular auditory symptoms. She denies chest pain, pressure, tightness or heaviness. She denies shortness of breath or difficulty breathing. She denies abdominal pain, nausea, vomiting or diarrhea. She states she still makes urine. She denies dysuria, frequency, urgency or hematuria. Prior similar symptoms: Yes Recent Illness/Hospitalization: No [facility] Medical History History of stress test History of echocardiogram History of transesophageal echocardiography (HONG) History of TIA (transient ischemic attack) History of myocardial infarction Diabetes mellitus type 2 with complications Non-pressure chronic ulcer of ankle with fat layer exposed Secondary hyperparathyroidism Non-pressure chronic ulcer of right ankle with necrosis of muscle Non-pressure chronic ulcer of left ankle with necrosis of muscle Adverse effect of synthetic cannabinoids, initial encounter [place] coma scale score 13-15, at arrival to emergency department Acute alteration in mental status Short Achilles tendon (acquired), left ankle Short Achilles tendon (acquired), right ankle Acquired cavovarus deformity of left foot Acquired cavovarus deformity of right foot Type 2 diabetes mellitus with diabetic polyneuropathy Adult failure to thrive ESRD (end stage renal disease) on dialysis Drowsiness Mental status, decreased Carotid artery stenosis MSSA bacteremia ESRD on hemodialysis Osteomyelitis Anemia in chronic illness Type 2 diabetes mellitus Foot osteomyelitis, left Chronic renal disease, stage 4, severely decreased glomerular filtration rate (GFR) between 15-29 mL/min/1.73 square meter Acute on chronic anemia Chronic ulcer of right foot with necrosis of bone Chronic kidney disease, stage 4 (severe) Diabetes mellitus with diabetic polyneuropathy Diabetic foot ulcers Chronic kidney disease, stage 3b Charcot's joint, right ankle and foot Charcot's joint, left ankle and foot Cellulitis Acute lumbar radiculopathy Essential hypertension Adult failure to thrive COVID-19 (08/28/21) Chronic ulcer of right leg with fat layer exposed Ulcer of left foot with fat layer exposed Chronic ulcer of right foot with fat layer exposed Hyperparathyroidism, secondary renal Iron deficiency anemia Bilateral edema of lower extremity Chronic foot pain Non-pressure chronic 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 layer exposed Debility Charcot's joint of right foot Diabetes Non-smoker Myocardial infarct Hypertension TIA (transient ischemic attack) Amputation foot, bilat Non-pressure chronic ulcer of other part of left foot with fat layer exposed 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 Ulcer of left foot with necrosis of muscle Ulcer of left foot with muscle involvement without evidence of necrosis Anxiety and depression Diabetic infection of left foot Delayed wound healing Non-compliance Diabetic polyneuropathy Ischemic cardiomyopathy Obesity (BMI 30.0-34.9) Acquired varus deformity of left foot Acquired varus deformity of right foot Atherosclerosis of viejas coronary artery of viejas heart without angina pectoris Hemoglobin A1c greater than 9.0% NSTEMI (non-ST elevated myocardial infarction) (09/20/18) GERD (gastroesophageal reflux disease) HLD (hyperlipidemia) Back pain, chronic RLS (restless legs syndrome) Home Medications ?Medication ?Instructions ?Recorded ?Last Taken ?Type paroxetine HCl 20 mg tablet 30 mg PO QHS DEPRESSION 07/07/21 04/07/22 History ascorbic acid (vitamin C) 500 mg 500 mg PO BID supplement 05/05/22 Unknown History tablet (Vitamin C) pantoprazole 40 mg tablet,delayed 40 mg PO BIDCM GERD 07/19/22 Unknown History release folic acid 800 mcg tablet 0.8 mg PO DAILY supplement 12/16/23 Unknown History levothyroxine 25 mcg tablet 25 mcg PO DAILY thyroid 12/16/23 Unknown History aspirin 81 mg capsule 81 mg PO DAILY blood thinner #30 12/26/23 Unknown Rx caps atorvastatin 40 mg tablet 40 mg PO QHS cholesterol 03/18/24 06/26/24 History acetaminophen 325 mg tablet 650 mg PO Q6H PRN fever or pain 07/09/24 Unknown History insulin lispro 100 unit/mL See Protocol subcut TIDAC blood 09/13/24 Unknown History subcutaneous pen (Humalog KwikPen sugar (U-100) Insulin) L.acidophil,salivari-Bifido 1 cap PO 4X/DAY #0 caps 09/21/24 Unknown Rx bifidum-Strep thermoph 175 mg capsule nutrition tx glu 120 ml PO TIDCM #0 mL 09/21/24 Unknown Rx intol,lac-free,soy-fiber 0.06 gram-1.2 kcal/mL liquid (Glucerna 1.2 Howie) carvedilol 25 mg tablet 12.5 mg PO QHS blood pressure 12/06/24 Unknown History gabapentin 100 mg capsule 100 mg PO TID pain 12/06/24 Unknown History levetiracetam 500 mg tablet 250 mg PO QHS 12/06/24 Unknown History levetiracetam 500 mg tablet 500 mg PO BID 12/06/24 Unknown History ropinirole 0.25 mg tablet 0.25 mg PO QHS 12/06/24 Unknown History artificial 1 drp ophthalmic (eye) QHS 02/28/25 Unknown History tears(rdexwoz-xxgenejn-dvckulp) 0.1 %-0.3 %-0.2 % eye drops (GenTeal Tears Moderate) hydrocortisone 1 % topical cream 1 applic topical BID PRN itching 02/28/25 Unknown History (Cortisone (hydrocortisone)) hydroxyzine HCl 25 mg tablet 25 mg PO TID PRN itching 02/28/25 Unknown History ondansetron HCl 4 mg tablet 4 mg PO Q8H 02/28/25 Unknown History carvedilol 12.5 mg tablet (Coreg) 12.5 mg PO SUTUTHSA 03/18/25 Unknown History hydralazine 100 mg tablet 100 mg PO BID 03/18/25 Unknown History lorazepam 0.5 mg tablet 0.5 mg PO DAILY anxiety 03/18/25 Unknown History melatonin 5 mg capsule 5 mg PO QHS 03/18/25 Unknown History sucralfate 1 gram tablet 1 g PO ACHS indigestion 03/18/25 Unknown History acetaminophen 500 mg capsule 1,000 mg PO QHS 04/11/25 Unknown History clobetasol-propionate 1 applic topical CONT PRN rash 04/11/25 Unknown History insulin lispro 100 unit/mL 5 unit subcut ACHS 04/11/25 Unknown History subcutaneous pen (Humalog KwikPen (U-100) Insulin) methadone 5 mg tablet 2.5 mg (1/2 x 5 mg) PO BID 30 days 04/12/25 Unknown Rx #30 tabs Allergy/AdvReac Type Severity Reaction Status Date / Time fentanyl Allergy Other Verified 04/11/25 10:57 oxycodone (From OxyContin) Allergy sob Verified 04/11/25 10:57 Penicillins Allergy swelling Verified 04/11/25 10:57 in throat vancomycin Allergy Itching Verified 04/11/25 10:57 metronidazole AdvReac Nausea Verified 04/11/25 10:57 Family History Mother Diabetes CVA (cerebral vascular accident) Brother CAD (coronary artery disease) CABG X 3 Cancer testicular Diabetes Brother CAD (coronary artery disease) CABG X3 Diabetes Brother CAD (coronary artery disease) Stents Diabetes Sister CAD (coronary artery disease) CABG x 3 CVA (cerebral vascular accident) Diabetes Surgical History History of cardiac catheterization History of History of foot surgery History of bilateral carpal tunnel release History of rotator cuff surgery History of coronary artery stent placement (12/31/20) Social History household members: none number of children: 2 current occupational status: disabled Smoking Status: Never smoker alcohol intake: never substance use type: does not use caffeine: Yes Type: carbonated beverages Number of servings: 2 ROS ROS ED Constitutional Constitutional ED: Denies chills, fever(s), subjective, sweats or weight loss Eyes Eyes: Reports blurry vision bilateral (When patient passed out); Denies change in vision or diplopia ENT ENT ED: Denies ear pain, rhinorrhea or sore throat Cardiovascular Cardiovascular: Denies chest pain, palpitations or racing heartbeat Respiratory/Chest Respiratory/Chest: Denies cough, dyspnea or dyspnea on exertion Gastrointestinal Gastrointestinal: Reports nausea; Denies abdominal pain, diarrhea, melena or vomiting Genitourinary Genitourinary ED: Denies dysuria, hematuria or urinary frequency Musculoskeletal Musculoskeletal: Denies arthralgias, back pain, myalgias or neck pain Integumentary Denies rash Neurologic Neurologic: Denies headache(s) or paresthesias Psychiatric Psychiatric: Denies anxiety or depression Endocrine Endocrinology: Denies cold intolerance or heat intolerance Hematologic/Lymphatic Hematologic/Lymphatic: Reports systems reviewed and no addt'l complaints, except as documented EXAM Physical Exam Const Vital Signs: 04/18/25 19:04 04/18/25 19:29 04/18/25 19:42 Temperature 98.2 F Temperature Source Oral Pulse Rate 82 88 92 Respiratory Rate 16 14 13 Blood Pressure 181/82 H Blood Pressure Mean 115 Pulse Ox 97 Oxygen Delivery Method Room Air 04/18/25 19:45 04/18/25 20:00 Temperature Temperature Source Pulse Rate 88 85 Respiratory Rate 17 25 H Blood Pressure Blood Pressure Mean Pulse Ox Oxygen Delivery Method Positive well nourished and well developed Constitutional Narrative: Patient is not well-groomed. Vital signs are remarkable for an elevated blood pressure. She does have history of hypertension. General Appearance ED: well developed and pallor HEENT Reports moist mucous membranes HEENT Narrative: Head is atraumatic and normocephalic. Ears are normal. Nares patent. Posterior pharynx out erythema or exudate. Uvula midline. No deviation of the tongue with protrusion. Eyes PERRL and EOMs intact bilaterally General Eye ED: Yes pale conjunctiva; Negative for scleral icterus Neck no lymphadenopathy, supple and no JVD Chest Wall palpation of chest normal; Negative for inspection of chest normal Chest Narrative: Patient has a dialysis catheter. Left subclavian. Was recently changed. There is no erythema, warmth induration or fluctuance at the insertion site. Resp normal respiratory effort and clear to auscultation bilaterally Cardio regular rate, regular rhythm, S1 normal heart sound, S2 normal heart sound and no murmurs GI normal to inspection, nondistended, normoactive bowel sounds, non-tender, non-distended and no masses; Negative for hepatosplenomegaly Back/Spine no CVA tenderness Extremity Extremity Narrative: Patient has stigmata of PAD. Neuro oriented x3, CN's II-XII intact bilaterally and no sensory deficits noted Neuro Narrative: Patient is awake but not alert. Sensorium / Orientation: Negative for alert Psych Mood & Affect: depressed Skin no rashes or lesions noted and No skin turgor normal General Skin Exam: pallor; Negative for elasticity normal or jaundice MDM MDM MDM Narrative Medical decision making narrative: Patient is history is suggestive of vasovagal episode. Since she is a dialysis patient and has multiple medical problems will obtain CBC to assess H&H and white count. BMP to assess renal function and electrolytes and specifically potassium. EKG was obtained to assess for any dysrhythmia or acute ischemia. History & Record Review Additional record(s) reviewed:: Prior ED visit Lab Data Attestation: I reviewed the patient's lab results. Lab results narrative: CBC reveals mild anemia. CBC is otherwise unremarkable. ASIC metabolic panel is remarkable for BUN/creatinine of 52 and 5.47. This is not unexpected in a dialysis patient. Labs: Laboratory Results - last 24 hr 04/18/25 19:22 WBC 7.2 RBC 3.21 L Hgb 9.9 L Hct 31.2 L MCV 97.2 MCH 30.8 MCHC 31.7 L RDW Std Deviation 58.2 H RDW Coeff of Fior 16.6 H Plt Count 267 MPV 10.6 Immature Gran % (Auto) 0.400 Neut % (Auto) 70.1 H Lymph % (Auto) 15.2 L Lipscomb % (Auto) 10.8 H Eos % (Auto) 2.8 Baso % (Auto) 0.7 Absolute Neuts (auto) 5.1 Absolute Lymphs (auto) 1.10 Nucleated RBC % 0 Sodium 142 Potassium 4.3 Chloride 101 Carbon Dioxide 25.7 Anion Gap 16 H BUN 52 H Creatinine 5.47 H Estim Creat Clear Calc 11.31 L Est GFR (MDRD) Non-Af 8 L BUN/Creatinine Ratio 9.5 L Glucose 56 L Calcium 9.0 Rhythm Strip Rhythm Strip: Sinus Rhythm Rate: 83 Ectopy: None EKG Initial EKG: Attestation: I personally reviewed and interpreted this EKG as follows: Interpretation: Sinus Rhythm (Rate is 77. TX interval 252 ms. QRS duration 98 ms. QT duration 428 ms. [place] is normal. There is evidence of LVH. There is no ischemic changes noted.) Treatment and Re-Evaluation :: Patient was informed she had a vasovagal episode. She was discharged to home. Discharge Plan Triage Chief Complaint: Syncope ED Provider: Devin Lincoln Dx/Rx/DC Orders Clinical Impression: Vasovagal syncope, Type 2 diabetes mellitus with diabetic polyneuropathy, Anemia, Chronic kidney disease on chronic dialysis Instructions: ED Fainting, Vagal Reaction Prescriptions: No Action levetiracetam 500 mg tablet 250 mg PO QHS Rx Instructions: -W- 500mg levetiracetam 500 mg tablet 500 mg PO BID ropinirole 0.25 mg tablet 0.25 mg PO QHS Rx Instructions: administer 1-3 hours before bedtime artificial tear([id number]) [GenTeal Tears Moderate] 0.1-0.3-0.2 % drops 1 drp ophthalmic (eye) QHS hydrocortisone [Cortisone (hydrocortisone)] 1 % cream 1 applic topical BID PRN (Reason: itching) hydroxyzine HCl 25 mg tablet 25 mg PO TID PRN (Reason: itching) ondansetron HCl 4 mg tablet 4 mg PO Q8H paroxetine HCl 20 mg tablet 30 mg PO QHS Patient Comments: TAKE 1 TABLET BY MOUTH EVERY DAY IN THE EVENING ascorbic acid (vitamin C) [Vitamin C] 500 mg Tablet 500 mg PO BID pantoprazole 40 mg tablet,delayed release (DR/EC) 40 mg PO BIDCM gabapentin 100 mg capsule 100 mg PO TID atorvastatin 40 mg tablet 40 mg PO QHS carvedilol 25 mg tablet 12.5 mg PO QHS acetaminophen 325 mg Tablet 650 mg PO Q6H PRN (Reason: fever or pain) insulin lispro [Humalog KwikPen Insulin] 100 unit/mL Insulin Pen See Protocol subcut TIDAC Protocol: 4. Sliding Scale Insulin High-Med Dosing Condition: 150-199 mg/dl = 2 units Condition: 200-259 mg/dl = 4 units Condition: 260-324 mg/dl = 6 units Condition: 325-374 mg/dl = 8 units Condition: 375-409 mg/dl = 10 units Condition: 410-449 mg/dl = 11 units Condition: Greater than 449 call physician Protocol Text: Suggested for: - Patients on Total Daily Insulin Dose of 56-80 units - Patient who are known to be insulin resistant or septic HIGH MEDIUM DOSING ALGORITHM Aries,saliva-BJessicabif-S.therm 175 mg Capsule 1 cap PO 4X/DAY Qty: 0 0RF Glucerna 1.2 Howie 0.06-1.2 gram-kcal/mL Liquid 120 ml PO TIDCM Qty: 0 0RF folic acid 800 mcg tablet 0.8 mg PO DAILY Patient Comments: TAKE 1 TABLET BY MOUTH EVERY DAY levothyroxine 25 mcg tablet 25 mcg PO DAILY Patient Comments: TAKE 1 TABLET BY MOUTH EVERY DAY BEFORE BREAKFAST aspirin 81 mg capsule 81 mg PO DAILY Qty: 30 1RF melatonin 5 mg capsule 5 mg PO QHS carvedilol [Coreg] 12.5 mg tablet 12.5 mg PO SUTUTHSA Rx Instructions: must administer with a meal/food DO NOT ADMINISTER BEFORE DIALYSIS hydralazine 100 mg tablet 100 mg PO BID sucralfate 1 gram Tablet 1 g PO ACHS lorazepam 0.5 mg Tablet 0.5 mg PO DAILY acetaminophen 500 mg capsule 1,000 mg PO QHS clobetasol-propionate 1 applic topical CONT PRN (Reason: rash) insulin lispro [Humalog KwikPen Insulin] 100 unit/mL insulin pen 5 unit subcut ACHS methadone 5 mg tablet 2.5 mg PO BID 30 Days Qty: 30 0RF Primary Care Provider: NOT,DEFINED Referrals: NOT,DEFINED [Primary Care Provider] - Doctor,Your [Non-Staff] - As Needed Print Language: [place] Disposition Disposition: Home, Self Care
[2025-04-18 21:08] VITALS: BP 172/70; PULSE 82; RESP 18; TEMP 36.7; O2SAT 95
== END 2025-04-18 21:08 | disposition home or self-care (01) ==
PROVIDERS: Emergency Provider Emergency Medicine; Visit Provider Emergency Medicine
DX: R55 Syncope and collapse (principal); N18.6 End stage renal disease; I12.0 Hypertensive chronic kidney disease with stage 5 chronic kidney disease or end stage renal disease; E11.22 Type 2 diabetes mellitus with diabetic chronic kidney disease; E11.42 Type 2 diabetes mellitus with diabetic polyneuropathy; Z79.4 Long term (current) use of insulin; R41.82 Altered mental status, unspecified; E78.5 Hyperlipidemia, unspecified; Z99.2 Dependence on renal dialysis; I25.10 Atherosclerotic heart disease of native coronary artery without angina pectoris; D64.9 Anemia, unspecified; I25.5 Ischemic cardiomyopathy; I25.2 Old myocardial infarction; Z79.82 Long term (current) use of aspirin; Z79.890 Hormone replacement therapy; Z79.899 Other long term (current) drug therapy; Z86.73 Personal history of transient ischemic attack (TIA), and cerebral infarction without residual deficits
CPT/HCPCS: 80048; 85025; 93005; 99284; A4216

== ENCOUNTER 2025-04-20 20:20 | Emergency (ER) | payer MEDICARE, MEDICAID, SELFPAY ==
[2018-09-21 13:23] VITALS: BMI 29.3
[2025-04-20 20:22] VITALS: BP 158/75; PULSE 89; RESP 18; TEMP 36.8; O2SAT 96; BMI 29.7
--- NOTE | 2025-04-20 20:45 | EX.ED.DYSGE1 ---
HPI History of Present Illness Chief Complaint: Other, Pain/Inj Informant: patient and EMS Narrative Narrative: Sent in from [facility] for evaluation increasing pain. Patient recent discharge there. Dialysis Tuesday still makes urine follow-up with Dr. Joel. She did receive full dialysis yesterday. Feels her chronic back pain right ankle pain from a wound along with left leg pains. She states previous nursing facility where she was put on methadone 2.5 mg 3 times a day from the doctor there per patient. She chose this instead of increasing oxycodone to 10 mg. She states she was given her dose this evening. Still had pain therefore sent here. No trauma. No fever or chills. She was seeing wound care for her ankle however has not seen them recently. Per EMS blood glucose was 54. Per nursing she was slightly drowsy on arrival she was given a sandwich. Prior similar symptoms: Yes [facility] Medical History History of stress test History of echocardiogram History of transesophageal echocardiography (HONG) History of TIA (transient ischemic attack) History of myocardial infarction Diabetes mellitus type 2 with complications Non-pressure chronic ulcer of ankle with fat layer exposed Secondary hyperparathyroidism Non-pressure chronic ulcer of right ankle with necrosis of muscle Non-pressure chronic ulcer of left ankle with necrosis of muscle Adverse effect of synthetic cannabinoids, initial encounter Avery coma scale score 13-15, at arrival to emergency department Acute alteration in mental status Short Achilles tendon (acquired), left ankle Short Achilles tendon (acquired), right ankle Acquired cavovarus deformity of left foot Acquired cavovarus deformity of right foot Type 2 diabetes mellitus with diabetic polyneuropathy Adult failure to thrive ESRD (end stage renal disease) on dialysis Drowsiness Mental status, decreased Carotid artery stenosis MSSA bacteremia ESRD on hemodialysis Osteomyelitis Anemia in chronic illness Type 2 diabetes mellitus Foot osteomyelitis, left Chronic renal disease, stage 4, severely decreased glomerular filtration rate (GFR) between 15-29 mL/min/1.73 square meter Acute on chronic anemia Chronic ulcer of right foot with necrosis of bone Chronic kidney disease, stage 4 (severe) Diabetes mellitus with diabetic polyneuropathy Diabetic foot ulcers Chronic kidney disease, stage 3b Charcot's joint, right ankle and foot Charcot's joint, left ankle and foot Cellulitis Acute lumbar radiculopathy Essential hypertension Adult failure to thrive COVID-19 (08/28/21) Chronic ulcer of right leg with fat layer exposed Ulcer of left foot with fat layer exposed Chronic ulcer of right foot with fat layer exposed Hyperparathyroidism, secondary renal Iron deficiency anemia Bilateral edema of lower extremity Chronic foot pain Non-pressure chronic 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 layer exposed Debility Charcot's joint of right foot Diabetes Non-smoker Myocardial infarct Hypertension TIA (transient ischemic attack) Amputation foot, bilat Non-pressure chronic ulcer of other part of left foot with fat layer exposed 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 Ulcer of left foot with necrosis of muscle Ulcer of left foot with muscle involvement without evidence of necrosis Anxiety and depression Diabetic infection of left foot Delayed wound healing Non-compliance Diabetic polyneuropathy Ischemic cardiomyopathy Obesity (BMI 30.0-34.9) Acquired varus deformity of left foot Acquired varus deformity of right foot Atherosclerosis of [place] coronary artery of [place] heart without angina pectoris Hemoglobin A1c greater than 9.0% NSTEMI (non-ST elevated myocardial infarction) (09/20/18) GERD (gastroesophageal reflux disease) HLD (hyperlipidemia) Back pain, chronic RLS (restless legs syndrome) Home Medications ?Medication ?Instructions ?Recorded ?Last Taken ?Type paroxetine HCl 20 mg tablet 30 mg PO QHS DEPRESSION 07/07/21 04/07/22 History ascorbic acid (vitamin C) 500 mg 500 mg PO BID supplement 05/05/22 Unknown History tablet (Vitamin C) pantoprazole 40 mg tablet,delayed 40 mg PO BIDCM GERD 07/19/22 Unknown History release folic acid 800 mcg tablet 0.8 mg PO DAILY supplement 12/16/23 Unknown History levothyroxine 25 mcg tablet 25 mcg PO DAILY thyroid 12/16/23 Unknown History aspirin 81 mg capsule 81 mg PO DAILY blood thinner #30 12/26/23 Unknown Rx caps atorvastatin 40 mg tablet 40 mg PO QHS cholesterol 03/18/24 06/26/24 History acetaminophen 325 mg tablet 650 mg PO Q6H PRN fever or pain 07/09/24 Unknown History insulin lispro 100 unit/mL See Protocol subcut TIDAC blood 09/13/24 Unknown History subcutaneous pen (Humalog KwikPen sugar (U-100) Insulin) L.acidophil,salivari-Bifido 1 cap PO 4X/DAY #0 caps 09/21/24 Unknown Rx bifidum-Strep thermoph 175 mg capsule nutrition tx glu 120 ml PO TIDCM #0 mL 09/21/24 Unknown Rx intol,lac-free,soy-fiber 0.06 gram-1.2 kcal/mL liquid (Glucerna 1.2 Howie) carvedilol 25 mg tablet 12.5 mg PO QHS blood pressure 12/06/24 Unknown History gabapentin 100 mg capsule 100 mg PO TID pain 12/06/24 Unknown History levetiracetam 500 mg tablet 250 mg PO QHS 12/06/24 Unknown History levetiracetam 500 mg tablet 500 mg PO BID 12/06/24 Unknown History ropinirole 0.25 mg tablet 0.25 mg PO QHS 12/06/24 Unknown History artificial 1 drp ophthalmic (eye) QHS 02/28/25 Unknown History tears(drycpzx-zdzilbkt-xdmkcqc) 0.1 %-0.3 %-0.2 % eye drops (GenTeal Tears Moderate) hydrocortisone 1 % topical cream 1 applic topical BID PRN itching 02/28/25 Unknown History (Cortisone (hydrocortisone)) hydroxyzine HCl 25 mg tablet 25 mg PO TID PRN itching 02/28/25 Unknown History ondansetron HCl 4 mg tablet 4 mg PO Q8H 02/28/25 Unknown History carvedilol 12.5 mg tablet (Coreg) 12.5 mg PO SUTUTHSA 03/18/25 Unknown History hydralazine 100 mg tablet 100 mg PO BID 03/18/25 Unknown History lorazepam 0.5 mg tablet 0.5 mg PO DAILY anxiety 03/18/25 Unknown History melatonin 5 mg capsule 5 mg PO QHS 03/18/25 Unknown History sucralfate 1 gram tablet 1 g PO ACHS indigestion 03/18/25 Unknown History acetaminophen 500 mg capsule 1,000 mg PO QHS 04/11/25 Unknown History clobetasol-propionate 1 applic topical CONT PRN rash 04/11/25 Unknown History insulin lispro 100 unit/mL 5 unit subcut ACHS 04/11/25 Unknown History subcutaneous pen (Humalog KwikPen (U-100) Insulin) methadone 5 mg tablet 2.5 mg (1/2 x 5 mg) PO BID 30 days 04/12/25 Unknown Rx #30 tabs Allergy/AdvReac Type Severity Reaction Status Date / Time fentanyl Allergy Other Verified 04/20/25 20:21 Penicillins Allergy swelling Verified 04/20/25 20:21 in throat vancomycin Allergy Itching Verified 04/20/25 20:21 metronidazole AdvReac Nausea Verified 04/20/25 20:21 Family History Mother Diabetes CVA (cerebral vascular accident) Brother CAD (coronary artery disease) CABG X 3 Cancer testicular Diabetes Brother CAD (coronary artery disease) CABG X3 Diabetes Brother CAD (coronary artery disease) Stents Diabetes Sister CAD (coronary artery disease) CABG x 3 CVA (cerebral vascular accident) Diabetes Surgical History History of cardiac catheterization History of History of foot surgery History of bilateral carpal tunnel release History of rotator cuff surgery History of coronary artery stent placement (12/31/20) Social History household members: none number of children: 2 current occupational status: disabled Smoking Status: Never smoker alcohol intake: never substance use type: does not use caffeine: Yes Type: carbonated beverages Number of servings: 2 ROS ROS ED Constitutional Constitutional ED: Denies chills, fever(s) or sweats ENT ENT ED: Denies sore throat Cardiovascular Cardiovascular: Denies chest pain, leg edema, palpitations or racing heartbeat Respiratory/Chest Respiratory/Chest: Denies cough, dyspnea or dyspnea on exertion Gastrointestinal Gastrointestinal: Denies abdominal pain, diarrhea, nausea or vomiting Genitourinary Genitourinary ED: Denies dysuria, hematuria or urinary frequency Musculoskeletal Musculoskeletal: Reports back pain and extremity pain; Denies neck pain Integumentary Reports wounds; Denies rash Neurologic Neurologic: Denies headache(s), paresthesias or weakness EXAM Physical Exam Const Vital Signs: 04/20/25 20:22 04/20/25 22:30 Temperature 98.2 F Temperature Source Oral Pulse Rate 89 70 Respiratory Rate 18 16 Blood Pressure 158/75 H 137/70 H Blood Pressure Mean 102 92 Pulse Ox 96 Oxygen Delivery Method Room Air Positive well nourished and well developed Constitutional Narrative: Awake talking eating her sandwich. General Appearance ED: well developed and NAD HEENT Reports moist mucous membranes normocephalic and atraumatic Eyes General Eye ED: Yes normal appearance of both eyes Neck full ROM Chest Wall Chest: Negative for tenderness Resp normal respiratory effort and normal air movement Effort and Inspection: symmetric chest movement; Negative for respiratory distress Cardio regular rate, regular rhythm and no murmurs Peripheral Pulses: pulses 2+ throughout GI normal to inspection, nondistended, normoactive bowel sounds and non-tender Palpation: Negative for guarding or rebound tenderness present Extremity Extremity Narrative: Right lower extremity dressing around the ankle taken down, lateral ankle healing wound. No surrounding erythema there is clear drainage no exudates no streaking noted. Left lower leg: DuoDERM dressing distal anterior leg clean, dry, intact. Bilaterally no calf tenderness. Pulses are intact distally. General Extremety ED: Yes tenderness; Negative for edema General Extremity: Negative for edema Neuro oriented x3 and no sensory deficits noted Sensorium / Orientation: awake and alert Skin no rashes or lesions noted and no wounds MDM MDM MDM Narrative Medical decision making narrative: Interventions / MDM: Differential diagnosis: Chronic pain, chronic wounds, end-stage renal disease on dialysis, hypoglycemic event Diagnosis considered but do not suspect: N/A My EKG interpretation: N/A Imaging independently reviewed and interpreted by myself: N/A External documents reviewed: N/A Test considered but not ordered:N/A ED course: Patient with hypoglycemia had drowsiness on arrival now awake she is to eat her sandwich she is also given orange juice. Will check basic labs as she is a dialysis patient reporting full treatment yesterday. No infection of the ankle wound. [facility] report noted methadone 2.5 mg 3 times daily. Previously on oxycodone. Will dose her with oral oxycodone to help with pain control. Prior to receiving pain medicines, per nursing patient came more drowsy therefore this was held. She was not in any distress from her chronic pain. 2210: Lab work had glucose of 54, however after eating and taking orange juice it was 91. Stable anemia of 9.4. Creatinine 5.3 BUN 55 she is dialysis patient. Potassium is 4.5. 2300: Repeat glucose 101. Patient discharged back to facility to continue her methadone. She is referred back to wound care for her right ankle. Re-evaluation: stable Disposition discussed with patient/family/significant other: Patient Case discussed with consulting clinician: N/A This note was generated with Dragon dictation software. It may contain incorrect words, spelling, and punctuation that were not noted in checking the note before signing. Lab Data Attestation: I reviewed the patient's lab results. Labs: Laboratory Results - last 24 hr 04/20/25 04/20/25 04/20/25 20:45 22:02 22:58 WBC 7.6 RBC 3.06 L Hgb 9.4 L Hct 29.6 L MCV 96.7 MCH 30.7 MCHC 31.8 L RDW Std Deviation 59.7 H RDW Coeff of Fior 17.2 H Plt Count 291 MPV 10.6 Immature Gran % (Auto) 0.400 Neut % (Auto) 66.8 Lymph % (Auto) 17.5 L Nye % (Auto) 12.4 H Eos % (Auto) 2.2 Baso % (Auto) 0.7 Absolute Neuts (auto) 5.1 Absolute Lymphs (auto) 1.33 Nucleated RBC % 0 Sodium 141 Potassium 4.5 Chloride 99 Carbon Dioxide 25.3 Anion Gap 16 H BUN 55 H Creatinine 5.35 H Estim Creat Clear Calc 11.05 L Est GFR (MDRD) Non-Af 9 L BUN/Creatinine Ratio 10.2 Glucose 54 L Calcium 9.0 POC Glucose 91 100 Discharge Plan Triage Chief Complaint: Other, Pain/Inj ED Provider: Freddy Gloria Dx/Rx/DC Orders Clinical Impression: Hypoglycemia, Anemia, Chronic pain, Chronic wound, ESRD on hemodialysis Instructions: Hypoglycemia (Low Blood Sugar), ED Chronic Pain Prescriptions: No Action levetiracetam 500 mg tablet 250 mg PO QHS Rx Instructions: M-W-F 500mg levetiracetam 500 mg tablet 500 mg PO BID ropinirole 0.25 mg tablet 0.25 mg PO QHS Rx Instructions: administer 1-3 hours before bedtime artificial tear(aqzbi-gkx-fdn) [GenTeal Tears Moderate] 0.1-0.3-0.2 % drops 1 drp ophthalmic (eye) QHS hydrocortisone [Cortisone (hydrocortisone)] 1 % cream 1 applic topical BID PRN (Reason: itching) hydroxyzine HCl 25 mg tablet 25 mg PO TID PRN (Reason: itching) ondansetron HCl 4 mg tablet 4 mg PO Q8H paroxetine HCl 20 mg tablet 30 mg PO QHS Patient Comments: TAKE 1 TABLET BY MOUTH EVERY DAY IN THE EVENING ascorbic acid (vitamin C) [Vitamin C] 500 mg Tablet 500 mg PO BID pantoprazole 40 mg tablet,delayed release (DR/EC) 40 mg PO BIDCM gabapentin 100 mg capsule 100 mg PO TID atorvastatin 40 mg tablet 40 mg PO QHS carvedilol 25 mg tablet 12.5 mg PO QHS acetaminophen 325 mg Tablet 650 mg PO Q6H PRN (Reason: fever or pain) insulin lispro [Humalog KwikPen Insulin] 100 unit/mL Insulin Pen See Protocol subcut TIDAC Protocol: 4. Sliding Scale Insulin High-Med Dosing Condition: 150-199 mg/dl = 2 units Condition: 200-259 mg/dl = 4 units Condition: 260-324 mg/dl = 6 units Condition: 325-374 mg/dl = 8 units Condition: 375-409 mg/dl = 10 units Condition: 410-449 mg/dl = 11 units Condition: Greater than 449 call physician Protocol Text: Suggested for: - Patients on Total Daily Insulin Dose of 56-80 units - Patient who are known to be insulin resistant or septic HIGH MEDIUM DOSING ALGORITHM Lqamaroph,saliva-B.bif-S.therm 175 mg Capsule 1 cap PO 4X/DAY Qty: 0 0RF Glucerna 1.2 Howie 0.06-1.2 gram-kcal/mL Liquid 120 ml PO TIDCM Qty: 0 0RF folic acid 800 mcg tablet 0.8 mg PO DAILY Patient Comments: TAKE 1 TABLET BY MOUTH EVERY DAY levothyroxine 25 mcg tablet 25 mcg PO DAILY Patient Comments: TAKE 1 TABLET BY MOUTH EVERY DAY BEFORE BREAKFAST aspirin 81 mg capsule 81 mg PO DAILY Qty: 30 1RF melatonin 5 mg capsule 5 mg PO QHS carvedilol [Coreg] 12.5 mg tablet 12.5 mg PO SUTUTHSA Rx Instructions: must administer with a meal/food DO NOT ADMINISTER BEFORE DIALYSIS hydralazine 100 mg tablet 100 mg PO BID sucralfate 1 gram Tablet 1 g PO ACHS lorazepam 0.5 mg Tablet 0.5 mg PO DAILY acetaminophen 500 mg capsule 1,000 mg PO QHS clobetasol-propionate 1 applic topical CONT PRN (Reason: rash) insulin lispro [Humalog KwikPen Insulin] 100 unit/mL insulin pen 5 unit subcut ACHS methadone 5 mg tablet 2.5 mg PO BID 30 Days Qty: 30 0RF Primary Care Provider: Pat Hughes TECHNICAL SUPPORT DIRECTOR Referrals: NOT,DEFINED [Non-Staff] - [facility] [Non-Staff] - 3-5 Days Activity Restrictions/Additional Instructions: Hypoglycemia in the ED improved. Chronic wound to the right ankle, follow-up with wound care. Print Language: Italian Disposition Disposition: Home, Self Care
[2025-04-20 20:53] LABS: Hematocrit 29.6 % (37-47); Hemoglobin 9.4 g/dL (12.0-15.0); Immature Granulocytes Count 0.030 X10^3/uL (0.0-0.0); Mean Corp Hgb Conc 31.8 g/dL (32-36); Mean Corpuscular Volume 96.7 fL (81-99); Mean Platelet Vol. 10.6 fl (6.2-12.0); NRBC Flagged by Analyzer 0 % (0-5); Platelet Count 291 K/mm3 (150-450); RBC Distribution Width CV 17.2 % (11.6-14.6); RBC Distribution Width SD 59.7 fl (35.1-43.9); Red Blood Count 3.06 M/mm3 (4.2-5.4); White Blood Count 7.6 K/mm3 (4.4-11.0)
[2025-04-20 21:34] LABS: Anion Gap 16 (5-15); BUN 55 mg/dL (4-19); BUN/Creat Ratio 10.2 RATIO (10-20); Calcium,Total 9.0 mg/dL (7.6-11.0); Carbon Dioxide 25.3 mmol/L (21.0-32.0); Chloride 99 mmol/L (98-108); Estimated Creatinine Clearance 11.05 ml/min (50-250); Glucose 54 mg/dL (70-99); Potassium 4.5 mmol/L (3.3-5.1)
--- NOTE | 2025-04-20 22:13 | ED.RN ---
attempt to call [facility] dedrick nugent and unable to reach anyone--kept going to mail box .
[2025-04-20 22:30] VITALS: BP 137/70; PULSE 70; RESP 16
[2025-04-21 00:34] VITALS: BP 149/69; PULSE 71; RESP 18; TEMP 36.6; O2SAT 96
== END 2025-04-21 01:14 | disposition home or self-care (01) ==
PROVIDERS: Emergency Provider Emergency Medicine; PCP Nurse Practitioner Adult Health; Visit Provider Emergency Medicine
DX: E11.649 Type 2 diabetes mellitus with hypoglycemia without coma (principal); I12.0 Hypertensive chronic kidney disease with stage 5 chronic kidney disease or end stage renal disease; N18.6 End stage renal disease; E11.22 Type 2 diabetes mellitus with diabetic chronic kidney disease; E11.42 Type 2 diabetes mellitus with diabetic polyneuropathy; Z79.4 Long term (current) use of insulin; S91.009A Unspecified open wound, unspecified ankle, initial encounter; X58.XXXA Exposure to other specified factors, initial encounter; I25.10 Atherosclerotic heart disease of native coronary artery without angina pectoris; E78.5 Hyperlipidemia, unspecified; D64.9 Anemia, unspecified; M54.9 Dorsalgia, unspecified; G89.29 Other chronic pain; Z99.2 Dependence on renal dialysis; I25.5 Ischemic cardiomyopathy; I25.2 Old myocardial infarction; Z79.82 Long term (current) use of aspirin; Z79.890 Hormone replacement therapy; Z79.899 Other long term (current) drug therapy; Z86.73 Personal history of transient ischemic attack (TIA), and cerebral infarction without residual deficits; Z95.5 Presence of coronary angioplasty implant and graft
CPT/HCPCS: 80048; 82962; 85025; 99283; A4216

== ENCOUNTER 2025-04-25 22:35 | Emergency (ER) | payer MEDICARE, MEDICAID, SELFPAY ==
[2018-09-21 13:23] VITALS: BMI 29.3
[2025-04-25 22:36] VITALS: BP 162/69; PULSE 72; RESP 16; TEMP 36.5; O2SAT 95; BMI 29.5
[2025-04-25 23:18] LABS: Hematocrit 31.3 % (37-47); Hemoglobin 9.8 g/dL (12.0-15.0); Immature Granulocytes Count 0.020 X10^3/uL (0.0-0.0); Mean Corp Hgb Conc 31.3 g/dL (32-36); Mean Corpuscular Volume 97.5 fL (81-99); Mean Platelet Vol. 10.5 fl (6.2-12.0); NRBC Flagged by Analyzer 0 % (0-5); Platelet Count 256 K/mm3 (150-450); RBC Distribution Width CV 17.4 % (11.6-14.6); RBC Distribution Width SD 62.7 fl (35.1-43.9); Red Blood Count 3.21 M/mm3 (4.2-5.4); White Blood Count 5.6 K/mm3 (4.4-11.0)
[2025-04-25 23:35] VITALS: BP 141/68; PULSE 66; RESP 16; O2SAT 97
[2025-04-25 23:45] LABS: Anion Gap 16 (5-15); BUN 54 mg/dL (4-19); BUN/Creat Ratio 10.1 RATIO (10-20); Calcium,Total 9.2 mg/dL (7.6-11.0); Carbon Dioxide 25.0 mmol/L (21.0-32.0); Chloride 98 mmol/L (98-108); Estimated Creatinine Clearance 11.12 ml/min (50-250); Glucose 58 mg/dL (70-99); Potassium 5.0 mmol/L (3.3-5.1)
[2025-04-26] VITALS: BP 120/65
--- NOTE | 2025-04-26 00:46 | EX.ED.DYSGE1 ---
HPI History of Present Illness Chief Complaint: Hypoglycemia Informant: patient and EMS Narrative Narrative: Patient is a 59-year-old female with end-stage renal disease on dialysis and insulin-dependent diabetes. Reported this evening her mental status began to diminish and her blood sugar was checked and it was low. EMS states when they arrived she is altered but still protecting her airway. They confirmed her blood sugar was low. They gave her glucose tabs and glucagon and upon arrival her mental status has improved. The patient states she did not eat today. She states that she does not give herself her medication and she is unsure if she received her normal 5 units of insulin or potentially got 11 prior to the onset of her symptoms. Otherwise she states she feels at her baseline. [facility] Medical History History of stress test History of echocardiogram History of transesophageal echocardiography (HONG) History of TIA (transient ischemic attack) History of myocardial infarction Diabetes mellitus type 2 with complications Non-pressure chronic ulcer of ankle with fat layer exposed Secondary hyperparathyroidism Non-pressure chronic ulcer of right ankle with necrosis of muscle Non-pressure chronic ulcer of left ankle with necrosis of muscle Adverse effect of synthetic cannabinoids, initial encounter [place] coma scale score 13-15, at arrival to emergency department Acute alteration in mental status Short Achilles tendon (acquired), left ankle Short Achilles tendon (acquired), right ankle Acquired cavovarus deformity of left foot Acquired cavovarus deformity of right foot Type 2 diabetes mellitus with diabetic polyneuropathy Adult failure to thrive ESRD (end stage renal disease) on dialysis Drowsiness Mental status, decreased Carotid artery stenosis MSSA bacteremia ESRD on hemodialysis Osteomyelitis Anemia in chronic illness Type 2 diabetes mellitus Foot osteomyelitis, left Chronic renal disease, stage 4, severely decreased glomerular filtration rate (GFR) between 15-29 mL/min/1.73 square meter Acute on chronic anemia Chronic ulcer of right foot with necrosis of bone Chronic kidney disease, stage 4 (severe) Diabetes mellitus with diabetic polyneuropathy Diabetic foot ulcers Chronic kidney disease, stage 3b Charcot's joint, right ankle and foot Charcot's joint, left ankle and foot Cellulitis Acute lumbar radiculopathy Essential hypertension Adult failure to thrive COVID-19 (08/28/21) Chronic ulcer of right leg with fat layer exposed Ulcer of left foot with fat layer exposed Chronic ulcer of right foot with fat layer exposed Hyperparathyroidism, secondary renal Iron deficiency anemia Bilateral edema of lower extremity Chronic foot pain Non-pressure chronic 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 layer exposed Debility Charcot's joint of right foot Diabetes Non-smoker Myocardial infarct Hypertension TIA (transient ischemic attack) Amputation foot, bilat Non-pressure chronic ulcer of other part of left foot with fat layer exposed 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 Ulcer of left foot with necrosis of muscle Ulcer of left foot with muscle involvement without evidence of necrosis Anxiety and depression Diabetic infection of left foot Delayed wound healing Non-compliance Diabetic polyneuropathy Ischemic cardiomyopathy Obesity (BMI 30.0-34.9) Acquired varus deformity of left foot Acquired varus deformity of right foot Atherosclerosis of elem coronary artery of elem heart without angina pectoris Hemoglobin A1c greater than 9.0% NSTEMI (non-ST elevated myocardial infarction) (09/20/18) GERD (gastroesophageal reflux disease) HLD (hyperlipidemia) Back pain, chronic RLS (restless legs syndrome) Home Medications ?Medication ?Instructions ?Recorded ?Last Taken ?Type paroxetine HCl 20 mg tablet 30 mg PO QHS DEPRESSION 07/07/21 04/07/22 History ascorbic acid (vitamin C) 500 mg 500 mg PO BID supplement 05/05/22 Unknown History tablet (Vitamin C) pantoprazole 40 mg tablet,delayed 40 mg PO BIDCM GERD 07/19/22 Unknown History release folic acid 800 mcg tablet 0.8 mg PO DAILY supplement 12/16/23 Unknown History levothyroxine 25 mcg tablet 25 mcg PO DAILY thyroid 12/16/23 Unknown History aspirin 81 mg capsule 81 mg PO DAILY blood thinner #30 12/26/23 Unknown Rx caps atorvastatin 40 mg tablet 40 mg PO QHS cholesterol 03/18/24 06/26/24 History acetaminophen 325 mg tablet 650 mg PO Q6H PRN fever or pain 07/09/24 Unknown History insulin lispro 100 unit/mL See Protocol subcut TIDAC blood 09/13/24 Unknown History subcutaneous pen (Humalog KwikPen sugar (U-100) Insulin) L.acidophil,salivari-Bifido 1 cap PO 4X/DAY #0 caps 09/21/24 Unknown Rx bifidum-Strep thermoph 175 mg capsule nutrition tx glu 120 ml PO TIDCM #0 mL 09/21/24 Unknown Rx intol,lac-free,soy-fiber 0.06 gram-1.2 kcal/mL liquid (Glucerna 1.2 Howie) carvedilol 25 mg tablet 12.5 mg PO QHS blood pressure 12/06/24 Unknown History gabapentin 100 mg capsule 100 mg PO TID pain 12/06/24 Unknown History levetiracetam 500 mg tablet 250 mg PO QHS 12/06/24 Unknown History levetiracetam 500 mg tablet 500 mg PO BID 12/06/24 Unknown History ropinirole 0.25 mg tablet 0.25 mg PO QHS 12/06/24 Unknown History artificial 1 drp ophthalmic (eye) QHS 02/28/25 Unknown History tears(qjhtypj-qhjttzdg-erutqia) 0.1 %-0.3 %-0.2 % eye drops (GenTeal Tears Moderate) hydrocortisone 1 % topical cream 1 applic topical BID PRN itching 02/28/25 Unknown History (Cortisone (hydrocortisone)) hydroxyzine HCl 25 mg tablet 25 mg PO TID PRN itching 02/28/25 Unknown History ondansetron HCl 4 mg tablet 4 mg PO Q8H 02/28/25 Unknown History carvedilol 12.5 mg tablet (Coreg) 12.5 mg PO SUTUTHSA 03/18/25 Unknown History hydralazine 100 mg tablet 100 mg PO BID 03/18/25 Unknown History lorazepam 0.5 mg tablet 0.5 mg PO DAILY anxiety 03/18/25 Unknown History melatonin 5 mg capsule 5 mg PO QHS 03/18/25 Unknown History sucralfate 1 gram tablet 1 g PO ACHS indigestion 03/18/25 Unknown History acetaminophen 500 mg capsule 1,000 mg PO QHS 04/11/25 Unknown History clobetasol-propionate 1 applic topical CONT PRN rash 04/11/25 Unknown History insulin lispro 100 unit/mL 5 unit subcut ACHS 04/11/25 Unknown History subcutaneous pen (Humalog KwikPen (U-100) Insulin) methadone 5 mg tablet 2.5 mg (1/2 x 5 mg) PO BID 30 days 04/12/25 Unknown Rx #30 tabs Allergy/AdvReac Type Severity Reaction Status Date / Time fentanyl Allergy Other Verified 04/20/25 20:21 Penicillins Allergy swelling Verified 04/20/25 20:21 in throat vancomycin Allergy Itching Verified 04/20/25 20:21 metronidazole AdvReac Nausea Verified 04/20/25 20:21 Family History Mother Diabetes CVA (cerebral vascular accident) Brother CAD (coronary artery disease) CABG X 3 Cancer testicular Diabetes Brother CAD (coronary artery disease) CABG X3 Diabetes Brother CAD (coronary artery disease) Stents Diabetes Sister CAD (coronary artery disease) CABG x 3 CVA (cerebral vascular accident) Diabetes Surgical History History of cardiac catheterization History of History of foot surgery History of bilateral carpal tunnel release History of rotator cuff surgery History of coronary artery stent placement (12/31/20) Social History household members: none number of children: 2 current occupational status: disabled Smoking Status: Never smoker alcohol intake: never substance use type: does not use caffeine: Yes Type: carbonated beverages Number of servings: 2 ROS ROS ED Constitutional Constitutional ED: Denies chills or fever(s) ENT ENT ED: Denies sore throat Cardiovascular Cardiovascular: Denies chest pain Respiratory/Chest Respiratory/Chest: Denies cough or dyspnea Gastrointestinal Gastrointestinal: Denies abdominal pain, diarrhea, nausea or vomiting Musculoskeletal Musculoskeletal: Denies myalgias Integumentary Reports other Details: Positive chronic wounds Neurologic Neurologic: Denies headache(s) EXAM Physical Exam Const Vital Signs: 04/25/25 22:36 04/25/25 22:39 04/25/25 23:35 Temperature 97.7 F L Temperature Source Oral Pulse Rate 72 66 Respiratory Rate 16 16 Respiratory Pattern Normal Blood Pressure 162/69 H 141/68 H Blood Pressure Mean 100 92 Pulse Ox 95 97 Oxygen Delivery Method Room Air Room Air 04/26/25 00:00 Temperature Temperature Source Pulse Rate Respiratory Rate Respiratory Pattern Blood Pressure 120/65 Blood Pressure Mean 83 Pulse Ox Oxygen Delivery Method Positive well nourished and well developed General Appearance ED: well developed HEENT Reports dry mucous membranes HEENT Narrative: Normocephalic atraumatic No tongue or cheek biting to suggest seizure activity Mucous membranes are dry and tacky No tongue or lip swelling no oral lesions no airway edema or compromise; no secondary findings in the posterior pharynx to suggest infection Mouth ED: Yes dry mucous membranes Mouth: dry mucous membranes Eyes PERRL and EOMs intact bilaterally Neck supple Neck Narrative: No nuchal rigidity or meningeal signs Resp normal respiratory effort and clear to auscultation bilaterally Resp Narrative: Breath sounds are diminished throughout but overall clear to auscultation without signs of respiratory distress Cardio regular rate and regular rhythm GI normal to inspection, nondistended, normoactive bowel sounds, non-tender, non-distended and no masses Auscultation: normoactive bowel sounds Palpation: soft Extremity Extremity Narrative: Chronic wound to the right ankle/heel without secondary findings of infection Neuro oriented x3 and CN's II-XII intact bilaterally Sensorium / Orientation: alert Psych Psych Narrative: Patient has a flat affect Skin Skin Narrative: Chronic wound to the right heel/ankle without secondary findings of infection MDM MDM MDM Narrative Medical decision making narrative: Patient arrived to the ER with improvement of her mental status and this correlates with the fact EMS reported her blood sugar to be low and with administration of glucagon and glucose tabs sugar improved elevating/improving her mental status. She reported she did not eat today and received her insulin. She is on a fast acting insulin and therefore the mechanism of action will remain within the system for approximately 5 hours. She states that she was given the insulin around 8 PM which means we will need to watch her until 1 AM to ensure that she remains at a normal glucose. The patient was given juice and food while in the ER. She was able to eat these and had no bouts of nausea or vomiting. Her sugar continue to elevate as she ate and that roughly 5 hours after the reported insulin injection her sugar is now approximate 130. Her mental status remains normal. Labs show no sign of infection which correlates with her physical exam and her kidney function is elevated consistent with history of end-stage renal disease on dialysis without significant hyperkalemia. Therefore at this time as patient is maintaining her blood sugar and mental status there is no need for further evaluation in the hospital and she is otherwise safe for discharge. History & Record Review Discussion w/independent historian: EMS personnel and Patient Lab Data Attestation: I reviewed the patient's lab results. Labs: Laboratory Results - last 24 hr 04/25/25 04/25/25 04/25/25 23:04 23:15 23:50 WBC 5.6 RBC 3.21 L Hgb 9.8 L Hct 31.3 L MCV 97.5 MCH 30.5 MCHC 31.3 L RDW Std Deviation 62.7 H RDW Coeff of Fior 17.4 H Plt Count 256 MPV 10.5 Immature Gran % (Auto) 0.400 Neut % (Auto) 66.7 Lymph % (Auto) 17.3 L [place] % (Auto) 11.3 H Eos % (Auto) 3.6 Baso % (Auto) 0.7 Absolute Neuts (auto) 3.7 Absolute Lymphs (auto) 0.97 Nucleated RBC % 0 Sodium 139 Potassium 5.0 Chloride 98 Carbon Dioxide 25.0 Anion Gap 16 H BUN 54 H Creatinine 5.30 H Estim Creat Clear Calc 11.12 L Est GFR (MDRD) Non-Af 9 L BUN/Creatinine Ratio 10.1 Glucose 58 L Calcium 9.2 POC Glucose 88 93 Discharge Plan Triage Chief Complaint: Hypoglycemia ED Provider: Sergio Jonh Dx/Rx/DC Orders Clinical Impression: Hypoglycemia, Debility, ESRD on hemodialysis, Insulin dependent diabetes mellitus Instructions: Hypoglycemia (Low Blood Sugar) Prescriptions: No Action levetiracetam 500 mg tablet 250 mg PO QHS Rx Instructions: M-W-F 500mg levetiracetam 500 mg tablet 500 mg PO BID ropinirole 0.25 mg tablet 0.25 mg PO QHS Rx Instructions: administer 1-3 hours before bedtime artificial tear([id number]-fuw-thz) [GenTeal Tears Moderate] 0.1-0.3-0.2 % drops 1 drp ophthalmic (eye) QHS hydrocortisone [Cortisone (hydrocortisone)] 1 % cream 1 applic topical BID PRN (Reason: itching) hydroxyzine HCl 25 mg tablet 25 mg PO TID PRN (Reason: itching) ondansetron HCl 4 mg tablet 4 mg PO Q8H paroxetine HCl 20 mg tablet 30 mg PO QHS Patient Comments: TAKE 1 TABLET BY MOUTH EVERY DAY IN THE EVENING ascorbic acid (vitamin C) [Vitamin C] 500 mg Tablet 500 mg PO BID pantoprazole 40 mg tablet,delayed release (DR/EC) 40 mg PO BIDCM gabapentin 100 mg capsule 100 mg PO TID atorvastatin 40 mg tablet 40 mg PO QHS carvedilol 25 mg tablet 12.5 mg PO QHS acetaminophen 325 mg Tablet 650 mg PO Q6H PRN (Reason: fever or pain) insulin lispro [Humalog KwikPen Insulin] 100 unit/mL Insulin Pen See Protocol subcut TIDAC Protocol: 4. Sliding Scale Insulin High-Med Dosing Condition: 150-199 mg/dl = 2 units Condition: 200-259 mg/dl = 4 units Condition: 260-324 mg/dl = 6 units Condition: 325-374 mg/dl = 8 units Condition: 375-409 mg/dl = 10 units Condition: 410-449 mg/dl = 11 units Condition: Greater than 449 call physician Protocol Text: Suggested for: - Patients on Total Daily Insulin Dose of 56-80 units - Patient who are known to be insulin resistant or septic HIGH MEDIUM DOSING ALGORITHM Aries,saliva-B.bif-S.therm 175 mg Capsule 1 cap PO 4X/DAY Qty: 0 0RF Glucerna 1.2 Howie 0.06-1.2 gram-kcal/mL Liquid 120 ml PO TIDCM Qty: 0 0RF folic acid 800 mcg tablet 0.8 mg PO DAILY Patient Comments: TAKE 1 TABLET BY MOUTH EVERY DAY levothyroxine 25 mcg tablet 25 mcg PO DAILY Patient Comments: TAKE 1 TABLET BY MOUTH EVERY DAY BEFORE BREAKFAST aspirin 81 mg capsule 81 mg PO DAILY Qty: 30 1RF melatonin 5 mg capsule 5 mg PO QHS carvedilol [Coreg] 12.5 mg tablet 12.5 mg PO SUTUTHSA Rx Instructions: must administer with a meal/food DO NOT ADMINISTER BEFORE DIALYSIS hydralazine 100 mg tablet 100 mg PO BID sucralfate 1 gram Tablet 1 g PO ACHS lorazepam 0.5 mg Tablet 0.5 mg PO DAILY acetaminophen 500 mg capsule 1,000 mg PO QHS clobetasol-propionate 1 applic topical CONT PRN (Reason: rash) insulin lispro [Humalog KwikPen Insulin] 100 unit/mL insulin pen 5 unit subcut ACHS methadone 5 mg tablet 2.5 mg PO BID 30 Days Qty: 30 0RF Primary Care Provider: Pat Hughes TRANSITIONS RN CARE COORDINATOR Referrals: Pat Hughes TRANSITIONS RN CARE COORDINATOR, TRANSITIONS RN CARE COORDINATOR-C [Primary Care Provider] - Activity Restrictions/Additional Instructions: Your blood sugar was low which was the cause of your depressed mental status. This is most likely because you do not eat throughout the day and then still had your insulin this evening. At this time your blood sugar is normal and holding. The remainder of your labs reveal your chronic kidney disease but no signs of secondary infection. Continue all of your home medications as directed by your doctor and return to the ER should you have any further concerns Print Language: Czech Disposition Disposition: Home, Self Care
[2025-04-26 00:50] VITALS: BP 118/60; PULSE 65; RESP 16; TEMP 36.6; O2SAT 95
[2025-04-26 01:00] VITALS: BP 142/69; PULSE 68; RESP 19; O2SAT 91
[2025-04-26 02:00] VITALS: BP 149/68
== END 2025-04-26 04:54 | disposition home or self-care (01) ==
PROVIDERS: Emergency Provider Emergency Medicine; PCP Nurse Practitioner Adult Health; Visit Provider Emergency Medicine
DX: E11.649 Type 2 diabetes mellitus with hypoglycemia without coma (principal); I12.0 Hypertensive chronic kidney disease with stage 5 chronic kidney disease or end stage renal disease; N18.6 End stage renal disease; E11.22 Type 2 diabetes mellitus with diabetic chronic kidney disease; E11.42 Type 2 diabetes mellitus with diabetic polyneuropathy; Z79.4 Long term (current) use of insulin; S91.301A Unspecified open wound, right foot, initial encounter; S91.001A Unspecified open wound, right ankle, initial encounter; X58.XXXA Exposure to other specified factors, initial encounter; I25.5 Ischemic cardiomyopathy; I25.10 Atherosclerotic heart disease of native coronary artery without angina pectoris; E78.5 Hyperlipidemia, unspecified; R53.81 Other malaise; I25.2 Old myocardial infarction; Z99.2 Dependence on renal dialysis; Z79.82 Long term (current) use of aspirin; Z79.890 Hormone replacement therapy; Z79.899 Other long term (current) drug therapy; Z86.73 Personal history of transient ischemic attack (TIA), and cerebral infarction without residual deficits
CPT/HCPCS: 80048; 82962; 85025; 99284; A4216

== ENCOUNTER → 2025-04-25 | Outpatient (CLI) | payer MEDICARE, MEDICAID, SELFPAY ==
[2018-09-21 13:23] VITALS: BMI 29.3
--- NOTE | 2025-04-25 07:40 | CT_ITS ---
PROCEDURE: EXTREMITY LOWER WITHOUT CONTRA 04/25/2025 REASON FOR EXAM: RT CHARCOT FOOT TECHNIQUE: EXTREMITY LOWER WITHOUT CONTRA Coronal and Sagittal reconstruction series were provided. CONTRAST: None One or more dose reduction techniques were used (e.g., Automated exposure control, adjustment of the mA and/or kV according to patient size, use of iterative reconstruction technique). 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 There is loss of the plantar arch. There is a 0.8 cm developing osteochondral defect in the talar dome with subcortical cyst formation in the distal tibia. There is circumferential soft tissue edema with no visible organized or drainable collection. Vascular calcifications are visible. Soft Tissues: The distal Achilles shadow appears thickened which can indicate tendinopathy. The plantar fascia origin appears intact. The Lisfranc articulation is aligned. 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 There is loss of the plantar arch. There is a 0.8 cm developing osteochondral defect in the talar dome with subcor tical cyst formation in the distal tibia. There is circumferential soft tissue edema with no visible organized or drainab le collection. Reading Location: [facility]
== END | disposition home or self-care (01) ==
PROVIDERS: PCP Nurse Practitioner Adult Health; Referring Provider Podiatrist Foot & Ankle Surgery; Visit Provider Podiatrist Foot & Ankle Surgery
DX: M14.671 Charcot's joint, right ankle and foot (principal)
CPT/HCPCS: 73700

== ENCOUNTER 2025-04-27 00:47 | Emergency (ER) | payer MEDICARE, MEDICAID, SELFPAY ==
[2018-09-21 13:23] VITALS: BMI 29.3
[2025-04-27 00:53] VITALS: BP 134/52; PULSE 76; RESP 16; TEMP 37.1; O2SAT 98; BMI 26.6
[2025-04-27 00:55] VITALS: BP 134/52; PULSE 75; RESP 16; TEMP 37.1; O2SAT 98
--- NOTE | 2025-04-27 01:25 | EDS_ITS ---
HPI History of Present Illness Chief Complaint: Wound Check Narrative Narrative: Chief complaint and HPI: Bleeding right chronic ankle wound. 59-year-old female with end-stage renal disease on dialysis and insulin-dependent diabetes presents for evaluation of bleeding from her chronic right ankle wound. Patient states that her chronic right ankle wound occasionally bleeds. She resides at a assisted living facility who sent her in for the bleeding of the ankle. Patient states that she was told that she needed to come here by her aides. The right ankle is currently not bleeding. She has no complaints. Review of systems: See HPI Medications: As listed on the chart Allergies: As listed on the chart PFSH: Per chart Vital signs: As listed on the chart. Reviewed. Physical exam: Gen: A&O x3, NAD Head: Normocephalic, atraumatic Eyes: No sclera icterus, conjunctiva clear ENT: Moist mucous membranes CV: RRR, no murmurs Resp: Lungs CTA BL, no w/r/c Musc: Moves all extremity Skin: Chronic right lateral malleolus ankle wound without active bleeding or signs of infection Neuro: Alert, oriented, grossly intact, sensation intact Psych: Cooperative, appropriate mood and affect PFSH PFSH Medical History History of stress test History of echocardiogram History of transesophageal echocardiography (HONG) History of TIA (transient ischemic attack) History of myocardial infarction Diabetes mellitus type 2 with complications Non-pressure chronic ulcer of ankle with fat layer exposed Secondary hyperparathyroidism Non-pressure chronic ulcer of right ankle with necrosis of muscle Non-pressure chronic ulcer of left ankle with necrosis of muscle Adverse effect of synthetic cannabinoids, initial encounter Avery coma scale score 13-15, at arrival to emergency department Acute alteration in mental status Short Achilles tendon (acquired), left ankle Short Achilles tendon (acquired), right ankle Acquired cavovarus deformity of left foot Acquired cavovarus deformity of right foot Type 2 diabetes mellitus with diabetic polyneuropathy Adult failure to thrive ESRD (end stage renal disease) on dialysis Drowsiness Mental status, decreased Carotid artery stenosis MSSA bacteremia ESRD on hemodialysis Osteomyelitis Anemia in chronic illness Type 2 diabetes mellitus Foot osteomyelitis, left Chronic renal disease, stage 4, severely decreased glomerular filtration rate (GFR) between 15-29 mL/min/1.73 square meter Acute on chronic anemia Chronic ulcer of right foot with necrosis of bone Chronic kidney disease, stage 4 (severe) Diabetes mellitus with diabetic polyneuropathy Diabetic foot ulcers Chronic kidney disease, stage 3b Charcot's joint, right ankle and foot Charcot's joint, left ankle and foot Cellulitis Acute lumbar radiculopathy Essential hypertension Adult failure to thrive COVID-19 (08/28/21) Chronic ulcer of right leg with fat layer exposed Ulcer of left foot with fat layer exposed Chronic ulcer of right foot with fat layer exposed Hyperparathyroidism, secondary renal Iron deficiency anemia Bilateral edema of lower extremity Chronic foot pain Non-pressure chronic 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 layer exposed Debility Charcot's joint of right foot Diabetes Non-smoker Myocardial infarct Hypertension TIA (transient ischemic attack) Amputation foot, bilat Non-pressure chronic ulcer of other part of left foot with fat layer exposed 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 Ulcer of left foot with necrosis of muscle Ulcer of left foot with muscle involvement without evidence of necrosis Anxiety and depression Diabetic infection of left foot Delayed wound healing Non-compliance Diabetic polyneuropathy Ischemic cardiomyopathy Obesity (BMI 30.0-34.9) Acquired varus deformity of left foot Acquired varus deformity of right foot Atherosclerosis of [place] coronary artery of [place] heart without angina pectoris Hemoglobin A1c greater than 9.0% NSTEMI (non-ST elevated myocardial infarction) (09/20/18) GERD (gastroesophageal reflux disease) HLD (hyperlipidemia) Back pain, chronic RLS (restless legs syndrome) Home Medications ?Medication ?Instructions ?Recorded ?Last Taken ?Type paroxetine HCl 20 mg tablet 30 mg PO QHS DEPRESSION 04/07/22 History ascorbic acid (vitamin C) 500 mg 500 mg PO BID supplem ent 05/05/22 Unknown History tablet (Vitamin C) pantoprazole 40 mg tablet,delayed 40 mg PO BIDCM GERD 07/19/22 Unknown History release folic acid 800 mcg tablet 0.8 mg PO DAILY supplement 0 12/16/23 Unknown History levothyroxine 25 mcg tablet 25 mcg PO DAILY thyroid Unknown History aspirin 81 mg capsule 81 mg PO DAILY blood thinner #30 12/26/23 Unknown Rx caps atorvastatin 40 mg tablet 40 mg PO QHS cholesterol 07/0306/26/24 History acetaminophen 325 mg tablet 650 mg PO Q6H PRN fever or pain 07/09/24 Unknown History insulin lispro 100 unit/mL See Protocol subcut TIDAC b lood 09/13/24 Unknown History subcutaneous pen (Humalog KwikPen sugar (U-100) Insulin) L.acidophil,salivari-Bifido 1 cap PO 4X/DAY #0 caps Unknown Rx bifidum-Strep thermoph 175 mg capsule nutrition tx glu 120 ml PO TIDCM #0 mL Unknown Rx intol,lac-free,soy-fiber 0.06 gram-1.2 kcal/mL liquid (Glucerna 1.2 Howie) carvedilol 25 mg tablet 12.5 mg PO QHS blood pressur e 12/06/24 Unknown History gabapentin 100 mg capsule 100 mg PO TID pain 12/06/24 Unknown History levetiracetam 500 mg tablet 250 mg PO QHS 12/06/24 Unk nown History levetiracetam 500 mg tablet 500 mg PO BID 12/06/24 Unk nown History ropinirole 0.25 mg tablet 0.25 mg PO QHS 12/06/24 Unkn own History artificial 1 drp ophthalmic (eye) QHS 0 02/28/25 Unknown History tears(gjokpad-txvqtzsn-urkybqh) 0.1 %-0.3 %-0.2 % eye drops (GenTeal Tears Moderate) hydrocortisone 1 % topical cream 1 applic topical BID PRN itching 02/28/25 Unknown History (Cortisone (hydrocortisone)) hydroxyzine HCl 25 mg tablet 25 mg PO TID PRN itching 02/28/25 Unknown History ondansetron HCl 4 mg tablet 4 mg PO Q8H 02/28/25 Unkno wn History carvedilol 12.5 mg tablet (Coreg) 12.5 mg PO SUTUTHSA 03/18/25 Unknown History hydralazine 100 mg tablet 100 mg PO BID 03/18/25 Unkno wn History lorazepam 0.5 mg tablet 0.5 mg PO DAILY anxiety 07/04 Unknown History melatonin 5 mg capsule 5 mg PO QHS 03/18/25 Unknown History sucralfate 1 gram tablet 1 g PO ACHS indigestion 07/04 Unknown History acetaminophen 500 mg capsule 1,000 mg PO QHS 04/11/25 Unknown History clobetasol-propionate 1 applic topical CONT PRN ra sh 04/11/25 Unknown History insulin lispro 100 unit/mL 5 unit subcut ACHS 04/11/25 Unknown History subcutaneous pen (Humalog KwikPen (U-100) Insulin) methadone 5 mg tablet 2.5 mg (1/2 x 5 mg) PO BID 3 0 days 04/12/25 Unknown Rx #30 tabs Allergy/AdvReac Type Severity Reaction Status Date / Time fentanyl Allergy Other Verified 04/27/25 00:56 Penicillins Allergy swelling Verified 04/27/25 00:56 in throat vancomycin Allergy Itching Verified 04/27/25 00:56 metronidazole AdvReac Nausea Verified 04/27/25 00:56 Family History Mother Diabetes CVA (cerebral vascular accident) Brother CAD (coronary artery disease) CABG X 3 Cancer testicular Diabetes Brother CAD (coronary artery disease) CABG X3 Diabetes Brother CAD (coronary artery disease) Stents Diabetes Sister CAD (coronary artery disease) CABG x 3 CVA (cerebral vascular accident) Diabetes Surgical History History of cardiac catheterization History of History of foot surgery History of bilateral carpal tunnel release History of rotator cuff surgery History of coronary artery stent placement (12/31/20) Social History household members: none number of children: 2 current occupational status: disabled Smoking Status: Never smoker alcohol intake: never substance use type: does not use caffeine: Yes Type: carbonated beverages Number of servings: 2 EXAM Physical Exam Const Vital Signs: 04/27/25 00:53 04/27/25 00:55 Temperature 98.7 F 98.7 F Temperature Source Oral Oral Pulse Rate 76 75 Respiratory Rate 16 16 Blood Pressure 134/52 H 134/52 H Blood Pressure Mean 79 79 Pulse Ox 98 98 Oxygen Delivery Method Room Air Room Air MDM MDM MDM Narrative Medical decision making narrative: 59-year-old female with end-stage renal disease on dialysis and insulin- dependent diabetes presents for evaluation of bleeding from her chronic right ankle wound. Patient states that she has a chronic right ankle wound that occasionally bleeds. She follows with wound care. States that it started to bleed this evening and was told by her aides that she needed to come to the emergency department. Ankle is currently not bleeding. She has no complaints. States she did not want to come to the emergency department. See physical exam findings. Patient has a chronic right ankle wound to the lateral malleolus. No active bleeding. No signs of infection. Ankle wound will be dressed. Patient will be discharged back to her facility. I do not think any laboratory workup or imaging is needed at this time. Patient in agreement. Impression: 1. Chronic right ankle wound 2. Bleeding of chronic wound, resolved Discharge Plan Triage Chief Complaint: Wound Check ED Provider: Juancarlos Garcia Dx/Rx/DC Orders Clinical Impression: Ankle wound Instructions: ED Wound Check (No Infection) Prescriptions: No Action levetiracetam 500 mg tablet 250 mg PO QHS Rx Instructions: M-W-F 500mg levetiracetam 500 mg tablet 500 mg PO BID ropinirole 0.25 mg tablet 0.25 mg PO QHS Rx Instructions: administer 1-3 hours before bedtime artificial tear(edonl-lzw-[id number]) [GenTeal Tears Moderate] 0.1-0.3-0.2 % drops 1 drp ophthalmic (eye) QHS hydrocortisone [Cortisone (hydrocortisone)] 1 % cream 1 applic topical BID PRN (Reason: itching) hydroxyzine HCl 25 mg tablet 25 mg PO TID PRN (Reason: itching) ondansetron HCl 4 mg tablet 4 mg PO Q8H paroxetine HCl 20 mg tablet 30 mg PO QHS Patient Comments: TAKE 1 TABLET BY MOUTH EVERY DAY IN THE EVENING ascorbic acid (vitamin C) [Vitamin C] 500 mg Tablet 500 mg PO BID pantoprazole 40 mg tablet,delayed release (DR/EC) 40 mg PO BIDCM gabapentin 100 mg capsule 100 mg PO TID atorvastatin 40 mg tablet 40 mg PO QHS carvedilol 25 mg tablet 12.5 mg PO QHS acetaminophen 325 mg Tablet 650 mg PO Q6H PRN (Reason: fever or pain) insulin lispro [Humalog KwikPen Insulin] 100 unit/mL Insulin Pen See Protocol subcut TIDAC Protocol: 4. Sliding Scale Insulin High-Med Dosing Condition: 150-199 mg/dl = 2 units Condition: 200-259 mg/dl = 4 units Condition: 260-324 mg/dl = 6 units Condition: 325-374 mg/dl = 8 units Condition: 375-409 mg/dl = 10 units Condition: 410-449 mg/dl = 11 units Condition: Greater than 449 call physician Protocol Text: Suggested for: - Patients on Total Daily Insulin Dose of 56-80 units - Patient who are known to be insulin resistant or septic HIGH MEDIUM DOSING ALGORITHM Elliott Chrisbif-S.therm 175 mg Capsule 1 cap PO 4X/DAY Qty: 0 0RF Glucerna 1.2 Howie 0.06-1.2 gram-kcal/mL Liquid 120 ml PO TIDCM Qty: 0 0RF folic acid 800 mcg tablet 0.8 mg PO DAILY Patient Comments: TAKE 1 TABLET BY MOUTH EVERY DAY levothyroxine 25 mcg tablet 25 mcg PO DAILY Patient Comments: TAKE 1 TABLET BY MOUTH EVERY DAY BEFORE BREAKFAST aspirin 81 mg capsule 81 mg PO DAILY Qty: 30 1RF melatonin 5 mg capsule 5 mg PO QHS carvedilol [Coreg] 12.5 mg tablet 12.5 mg PO SUTUTHSA Rx Instructions: must administer with a meal/food DO NOT ADMINISTER BEFORE DIALYSIS hydralazine 100 mg tablet 100 mg PO BID sucralfate 1 gram Tablet 1 g PO ACHS lorazepam 0.5 mg Tablet 0.5 mg PO DAILY acetaminophen 500 mg capsule 1,000 mg PO QHS clobetasol-propionate 1 applic topical CONT PRN (Reason: rash) insulin lispro [Humalog KwikPen Insulin] 100 unit/mL insulin pen 5 unit subcut ACHS methadone 5 mg tablet 2.5 mg PO BID 30 Days Qty: 30 0RF Primary Care Provider: Pat Hughes [employer] HEALTH INSTRUCTOR Referrals: Pat Hughes ALLIED HEALTH INSTRUCTOR, [facility] HE[facility] INSTRUCTOR-C [Primary Care Provider] - 3-5 Days Activity Restrictions/Additional Instructions: Follow-up with primary care physician. If rebleeding occurs recommend pressure. Return back to ED if symptoms change or worsen. Print Language: Tajik Disposition Disposition: Home, Self Care
[2025-04-27 02:55] VITALS: BP 136/86; PULSE 66; PULSE 86; RESP 16; TEMP 36.6; O2SAT 98
--- NOTE | 2025-04-27 03:52 | ED.RN ---
Pt aware squad was pushed back an hour. pt wants us to try to call daughter or her cousin to come get her.
--- NOTE | 2025-04-27 03:55 | ED.RN ---
Pts daughter and cousin were called with no answer. Pt is aware.
--- NOTE | 2025-04-27 04:14 | ED.RN ---
Pt trying to wheel herself outside. Pt told she had to stay in her room to wait on the squad to take her home. Pt wanting methadone and was told that she can not get methadone while she is here. Pt saying that she is in pain and needs something for it. Pt stating that she will walk home and was advised that she is not able to walk that far. She said she would leave and walk as far as I can. Pt was advised that EMS would be called to pick her up wherever she stops and will bring her right back here. PT asked for oxycodone . Pt agreed to go back to the room if we asked the doctor for pain meds. Dr Inman doesn't want to give meds due to pt getting her methadone at 4am at the assisted living. Pt was advised of this with an agreement that if the squad does not show up at 435 we will get her something for pain. Pt is crying in the room.
--- NOTE | 2025-04-27 04:31 | ED.RN ---
Pt up in room, walking without assistive device. This nurse and security to room, attempting to assist to wheelchair. Pt then stops bearing weight purposefully and refuses to sit in the wheelchair. Pt sits on floor. Pt reminded that she has been asked several times by multiple nurses to remain in her wheelchair or in the bed, and asked not to be walking without assistance or supervision and pt has not been compliant. Nursing working supervisor Magali to room, pt is yelling at this nurse you're a fucking bitch and I fucking hate you, I am going to complain about you. Magali attempts to redirect pt, pt states she will get back in bed if this nurse leaves. This nurse leaves room, gives pt her name. Pt is in room with Magali, pt is heard yelling from the room, I don't understand why they won't give me oxycodone, they gave it to me last time I was here. Dr Inman orders scheduled methadone. Pt not given oxycodone due to narcotic seeking behavior per Dr Inman.
[2025-04-27 04:38] VITALS: BP 164/89; PULSE 86; RESP 18; O2SAT 100
== END 2025-04-27 05:10 | disposition home or self-care (01) ==
PROVIDERS: Emergency Provider Surgery; PCP Nurse Practitioner Adult Health; Visit Provider Surgery
DX: S91.001A Unspecified open wound, right ankle, initial encounter (principal); I12.0 Hypertensive chronic kidney disease with stage 5 chronic kidney disease or end stage renal disease; N18.6 End stage renal disease; E11.22 Type 2 diabetes mellitus with diabetic chronic kidney disease; E11.42 Type 2 diabetes mellitus with diabetic polyneuropathy; Z79.4 Long term (current) use of insulin; X58.XXXA Exposure to other specified factors, initial encounter; Z99.2 Dependence on renal dialysis; E78.5 Hyperlipidemia, unspecified; I25.5 Ischemic cardiomyopathy; I25.10 Atherosclerotic heart disease of native coronary artery without angina pectoris; I25.2 Old myocardial infarction; Z79.82 Long term (current) use of aspirin; Z79.890 Hormone replacement therapy; Z79.899 Other long term (current) drug therapy; Z86.73 Personal history of transient ischemic attack (TIA), and cerebral infarction without residual deficits; Z95.5 Presence of coronary angioplasty implant and graft
CPT/HCPCS: 99284

== ENCOUNTER 2025-05-01 23:52 | Emergency (ER) | payer MEDICARE, MEDICAID, SELFPAY ==
[2018-09-21 13:23] VITALS: BMI 29.3
[2025-05-01 23:54] VITALS: BP 152/88; PULSE 80; RESP 18; TEMP 37.1; O2SAT 100; BMI 27.6
--- NOTE | 2025-05-02 00:40 | EX.ED.DYSGE1 ---
HPI History of Present Illness Chief Complaint: Back Informant: patient, EMS and SNF Narrative Narrative: Patient is a 59 female from the skilled nursing with history of end-stage renal disease on dialysis insulin-dependent type 2 diabetes and chronic back pain. Nursing reports that they have been decreasing her methadone dose and attempts to provide treatment without narcotics. Patient states that there has been no recent trauma and she denies any recent back procedures such as surgery or injections. She states that the skilled nursing gave her her prescribed medication but it has not helped her pain and secondary to this she asked to be sent to the ER for evaluation. Patient denies any loss of bowel or bladder control or IV drug use [facility] Medical History History of stress test History of echocardiogram History of transesophageal echocardiography (HONG) History of TIA (transient ischemic attack) History of myocardial infarction Diabetes mellitus type 2 with complications Non-pressure chronic ulcer of ankle with fat layer exposed Secondary hyperparathyroidism Non-pressure chronic ulcer of right ankle with necrosis of muscle Non-pressure chronic ulcer of left ankle with necrosis of muscle Adverse effect of synthetic cannabinoids, initial encounter Avery coma scale score 13-15, at arrival to emergency department Acute alteration in mental status Short Achilles tendon (acquired), left ankle Short Achilles tendon (acquired), right ankle Acquired cavovarus deformity of left foot Acquired cavovarus deformity of right foot Type 2 diabetes mellitus with diabetic polyneuropathy Adult failure to thrive ESRD (end stage renal disease) on dialysis Drowsiness Mental status, decreased Carotid artery stenosis MSSA bacteremia ESRD on hemodialysis Osteomyelitis Anemia in chronic illness Type 2 diabetes mellitus Foot osteomyelitis, left Chronic renal disease, stage 4, severely decreased glomerular filtration rate (GFR) between 15-29 mL/min/1.73 square meter Acute on chronic anemia Chronic ulcer of right foot with necrosis of bone Chronic kidney disease, stage 4 (severe) Diabetes mellitus with diabetic polyneuropathy Diabetic foot ulcers Chronic kidney disease, stage 3b Charcot's joint, right ankle and foot Charcot's joint, left ankle and foot Cellulitis Acute lumbar radiculopathy Essential hypertension Adult failure to thrive COVID-19 (08/28/21) Chronic ulcer of right leg with fat layer exposed Ulcer of left foot with fat layer exposed Chronic ulcer of right foot with fat layer exposed Hyperparathyroidism, secondary renal Iron deficiency anemia Bilateral edema of lower extremity Chronic foot pain Non-pressure chronic 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 layer exposed Debility Charcot's joint of right foot Diabetes Non-smoker Myocardial infarct Hypertension TIA (transient ischemic attack) Amputation foot, bilat Non-pressure chronic ulcer of other part of left foot with fat layer exposed 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 Ulcer of left foot with necrosis of muscle Ulcer of left foot with muscle involvement without evidence of necrosis Anxiety and depression Diabetic infection of left foot Delayed wound healing Non-compliance Diabetic polyneuropathy Ischemic cardiomyopathy Obesity (BMI 30.0-34.9) Acquired varus deformity of left foot Acquired varus deformity of right foot Atherosclerosis of [place] coronary artery of [place] heart without angina pectoris Hemoglobin A1c greater than 9.0% NSTEMI (non-ST elevated myocardial infarction) (09/20/18) GERD (gastroesophageal reflux disease) HLD (hyperlipidemia) Back pain, chronic RLS (restless legs syndrome) Home Medications Medication Instructions Recorded Last Taken Type paroxetine HCl 20 mg tablet 30 mg PO QHS DEPRESSION 07/07/21 04/07/22 History ascorbic acid (vitamin C) 500 mg 500 mg PO BID supplement 05/05/22 Unknown History tablet (Vitamin C) pantoprazole 40 mg tablet,delayed 40 mg PO BIDCM GERD 07/19/22 Unknown History release folic acid 800 mcg tablet 0.8 mg PO DAILY supplement 12/16/23 Unknown History levothyroxine 25 mcg tablet 25 mcg PO DAILY thyroid 12/16/23 Unknown History aspirin 81 mg capsule 81 mg PO DAILY blood thinner #30 12/26/23 Unknown Rx caps atorvastatin 40 mg tablet 40 mg PO QHS cholesterol 03/18/24 06/26/24 History acetaminophen 325 mg tablet 650 mg PO Q6H PRN fever or pain 07/09/24 Unknown History insulin lispro 100 unit/mL See Protocol subcut TIDAC blood 09/13/24 Unknown History subcutaneous pen (Humalog KwikPen sugar (U-100) Insulin) L.acidophil,salivari-Bifido 1 cap PO 4X/DAY #0 caps 09/21/24 Unknown Rx bifidum-Strep thermoph 175 mg capsule nutrition tx glu 120 ml PO TIDCM #0 mL 09/21/24 Unknown Rx intol,lac-free,soy-fiber 0.06 gram-1.2 kcal/mL liquid (Glucerna 1.2 Howie) carvedilol 25 mg tablet 12.5 mg PO QHS blood pressure 12/06/24 Unknown History gabapentin 100 mg capsule 100 mg PO TID pain 12/06/24 Unknown History levetiracetam 500 mg tablet 250 mg PO QHS 12/06/24 Unknown History levetiracetam 500 mg tablet 500 mg PO BID 12/06/24 Unknown History ropinirole 0.25 mg tablet 0.25 mg PO QHS 12/06/24 Unknown History artificial 1 drp ophthalmic (eye) QHS 02/28/25 Unknown History tears(qegufib-xkwhkpmq-dqawttr) 0.1 %-0.3 %-0.2 % eye drops (GenTeal Tears Moderate) hydrocortisone 1 % topical cream 1 applic topical BID PRN itching 02/28/25 Unknown History (Cortisone (hydrocortisone)) hydroxyzine HCl 25 mg tablet 25 mg PO TID PRN itching 02/28/25 Unknown History ondansetron HCl 4 mg tablet 4 mg PO Q8H 02/28/25 Unknown History carvedilol 12.5 mg tablet (Coreg) 12.5 mg PO SUTUTHSA 03/18/25 Unknown History hydralazine 100 mg tablet 100 mg PO BID 03/18/25 Unknown History lorazepam 0.5 mg tablet 0.5 mg PO DAILY anxiety 03/18/25 Unknown History melatonin 5 mg capsule 5 mg PO QHS 03/18/25 Unknown History sucralfate 1 gram tablet 1 g PO ACHS indigestion 03/18/25 Unknown History acetaminophen 500 mg capsule 1,000 mg PO QHS 04/11/25 Unknown History clobetasol-propionate 1 applic topical CONT PRN rash 04/11/25 Unknown History insulin lispro 100 unit/mL 5 unit subcut ACHS 04/11/25 Unknown History subcutaneous pen (Humalog KwikPen (U-100) Insulin) methadone 5 mg tablet 2.5 mg (1/2 x 5 mg) PO BID 30 days 04/12/25 Unknown Rx #30 tabs diazepam 5 mg tablet (Valium) 5 mg PO TID PRN muscle spasm 5 05/02/25 Unknown Rx days #15 tabs gabapentin 300 mg capsule 300 mg PO TID 30 days #90 caps 05/02/25 Unknown Rx Allergy/AdvReac Type Severity Reaction Status Date / Time fentanyl Allergy Other Verified 05/01/25 23:53 Penicillins Allergy swelling Verified 05/01/25 23:53 in throat vancomycin Allergy Itching Verified 05/01/25 23:53 metronidazole AdvReac Nausea Verified 05/01/25 23:53 Family History Mother Diabetes CVA (cerebral vascular accident) Brother CAD (coronary artery disease) CABG X 3 Cancer testicular Diabetes Brother CAD (coronary artery disease) CABG X3 Diabetes Brother CAD (coronary artery disease) Stents Diabetes Sister CAD (coronary artery disease) CABG x 3 CVA (cerebral vascular accident) Diabetes Surgical History History of cardiac catheterization History of History of foot surgery History of bilateral carpal tunnel release History of rotator cuff surgery History of coronary artery stent placement (12/31/20) Social History household members: none number of children: 2 current occupational status: disabled Smoking Status: Never smoker alcohol intake: never substance use type: does not use caffeine: Yes Type: carbonated beverages Number of servings: 2 ROS ROS ED Constitutional Constitutional ED: Denies chills or fever(s) ENT ENT ED: Denies sore throat Cardiovascular Cardiovascular: Denies chest pain Respiratory/Chest Respiratory/Chest: Denies cough or dyspnea Gastrointestinal Gastrointestinal: Denies abdominal pain, diarrhea, nausea or vomiting Musculoskeletal Musculoskeletal: Reports back pain Integumentary Denies rash Neurologic Neurologic: Denies headache(s) EXAM Physical Exam Const Vital Signs: 05/01/25 23:54 05/02/25 00:45 Temperature 98.7 F 98.7 F Temperature Source Oral Pulse Rate 80 81 Respiratory Rate 18 18 Blood Pressure 152/88 H 141/95 H Blood Pressure Mean 109 110 Pulse Ox 100 96 Oxygen Delivery Method Room Air Positive well nourished and well developed General Appearance ED: well developed HEENT HEENT Narrative: Normocephalic atraumatic Eyes PERRL and EOMs intact bilaterally General Eye ED: Negative for scleral icterus Neck supple Resp normal respiratory effort and clear to auscultation bilaterally Cardio regular rate and regular rhythm Back/Spine Back/Spine Narrative: No bony deformity or step-off of the thoracic or lumbar spine no midline tenderness to palpation. There is bilateral paralumbar tension and spasm noted No overlying soft tissue changes to suggest trauma or infection Extremity Extremity Narrative: Patient has a chronic wound to the left ankle without secondary findings of infection There is trace to +1 pitting edema to the bilateral lower extremities that is equal and symmetric and chronic per patient; negative Homans' sign bilaterally Neuro oriented x3, CN's II-XII intact bilaterally and no sensory deficits noted Sensorium / Orientation: alert Motor Exam: strength 5/5 throughout Psych Attitude: agitated Mood & Affect: anxious Skin no rashes or lesions noted and no wounds MDM MDM MDM Narrative Medical decision making narrative: Patient arrived to the ER hypertensive but has a past medical history of this and otherwise with stable vitals. She denied any recent trauma and there is no midline pain going against compression fracture or spinal thesis as a cause of her worsening back pain. There is been no recent injections or surgical procedures going against discitis. She denies loss of bowel or bladder control or IV drug use going against cauda equina syndrome or epidural abscess. The the patient has had her methadone reduced and I feel this is the main cause for her breakthrough pain. Therefore there is no need for imaging or laboratory studies. I do not want to add narcotics as this would contradict the skilled nursing's approach to trying new medications with minimal opioids to control her symptoms. Therefore I will increase her gabapentin from 100 to 300 mg 3 times a day and place her on Valium to help with muscle tension and spasm. However as there is no obvious signs of infection or trauma and she is neurovascularly intact there is no need for further workup and she is otherwise safe for discharge History & Record Review Discussion w/independent historian: Patient Discharge Plan Triage Chief Complaint: Back ED Provider: Sergio John Dx/Rx/DC Orders Clinical Impression: Acute exacerbation of chronic low back pain, Spasm of back muscles, Debility, ESRD (end stage renal disease) on dialysis, Diabetes mellitus, type II, insulin dependent Instructions: ED Back Pain (Acute or Chronic), ED Back Spasm, No Trauma Prescriptions: New gabapentin 300 mg capsule 300 mg PO TID 30 Days Qty: 90 0RF diazepam [Valium] 5 mg tablet 5 mg PO TID PRN (Reason: muscle spasm) 5 Days Qty: 15 0RF No Action levetiracetam 500 mg tablet 250 mg PO QHS Rx Instructions: -- 500mg levetiracetam 500 mg tablet 500 mg PO BID ropinirole 0.25 mg tablet 0.25 mg PO QHS Rx Instructions: administer 1-3 hours before bedtime artificial tear([id number]) [GenTeal Tears Moderate] 0.1-0.3-0.2 % drops 1 drp ophthalmic (eye) QHS hydrocortisone [Cortisone (hydrocortisone)] 1 % cream 1 applic topical BID PRN (Reason: itching) hydroxyzine HCl 25 mg tablet 25 mg PO TID PRN (Reason: itching) ondansetron HCl 4 mg tablet 4 mg PO Q8H paroxetine HCl 20 mg tablet 30 mg PO QHS Patient Comments: TAKE 1 TABLET BY MOUTH EVERY DAY IN THE EVENING ascorbic acid (vitamin C) [Vitamin C] 500 mg Tablet 500 mg PO BID pantoprazole 40 mg tablet,delayed release (DR/EC) 40 mg PO BIDCM gabapentin 100 mg capsule 100 mg PO TID atorvastatin 40 mg tablet 40 mg PO QHS carvedilol 25 mg tablet 12.5 mg PO QHS acetaminophen 325 mg Tablet 650 mg PO Q6H PRN (Reason: fever or pain) insulin lispro [Humalog KwikPen Insulin] 100 unit/mL Insulin Pen See Protocol subcut TIDAC Protocol: 4. Sliding Scale Insulin High-Med Dosing Condition: 150-199 mg/dl = 2 units Condition: 200-259 mg/dl = 4 units Condition: 260-324 mg/dl = 6 units Condition: 325-374 mg/dl = 8 units Condition: 375-409 mg/dl = 10 units Condition: 410-449 mg/dl = 11 units Condition: Greater than 449 call physician Protocol Text: Suggested for: - Patients on Total Daily Insulin Dose of 56-80 units - Patient who are known to be insulin resistant or septic HIGH MEDIUM DOSING ALGORITHM Aries,saliva-B.bif-S.therm 175 mg Capsule 1 cap PO 4X/DAY Qty: 0 0RF Glucerna 1.2 Howie 0.06-1.2 gram-kcal/mL Liquid 120 ml PO TIDCM Qty: 0 0RF folic acid 800 mcg tablet 0.8 mg PO DAILY Patient Comments: TAKE 1 TABLET BY MOUTH EVERY DAY levothyroxine 25 mcg tablet 25 mcg PO DAILY Patient Comments: TAKE 1 TABLET BY MOUTH EVERY DAY BEFORE BREAKFAST aspirin 81 mg capsule 81 mg PO DAILY Qty: 30 1RF melatonin 5 mg capsule 5 mg PO QHS carvedilol [Coreg] 12.5 mg tablet 12.5 mg PO SUTUTHSA Rx Instructions: must administer with a meal/food DO NOT ADMINISTER BEFORE DIALYSIS hydralazine 100 mg tablet 100 mg PO BID sucralfate 1 gram Tablet 1 g PO ACHS lorazepam 0.5 mg Tablet 0.5 mg PO DAILY acetaminophen 500 mg capsule 1,000 mg PO QHS clobetasol-propionate 1 applic topical CONT PRN (Reason: rash) insulin lispro [Humalog KwikPen Insulin] 100 unit/mL insulin pen 5 unit subcut ACHS methadone 5 mg tablet 2.5 mg PO BID 30 Days Qty: 30 0RF Primary Care Provider: Pat Hughes COMPLIANCE VICE PRESIDENT Referrals: Pat Hughes COMPLIANCE VICE PRESIDENT, COMPLIANCE VICE PRESIDENT-C [Primary Care Provider] - Activity Restrictions/Additional Instructions: Your history and exam would indicate that your back pain is worsening secondary to the decreased in methadone dosing. In order to Print Language: Persian Disposition Disposition: Home, Self Care Discharge Date/Time: 05/02/25 02:20
[2025-05-02 00:45] VITALS: BP 141/95; PULSE 81; RESP 18; TEMP 37.1; O2SAT 96
== END 2025-05-02 02:20 | disposition home or self-care (01) ==
PROVIDERS: Emergency Provider Emergency Medicine; PCP Nurse Practitioner Adult Health; Visit Provider Emergency Medicine
DX: G89.29 Other chronic pain (principal); N18.6 End stage renal disease; I12.0 Hypertensive chronic kidney disease with stage 5 chronic kidney disease or end stage renal disease; E11.22 Type 2 diabetes mellitus with diabetic chronic kidney disease; E11.42 Type 2 diabetes mellitus with diabetic polyneuropathy; Z79.4 Long term (current) use of insulin; M54.50 Low back pain, unspecified; Z99.2 Dependence on renal dialysis; M62.830 Muscle spasm of back; I25.5 Ischemic cardiomyopathy; I25.10 Atherosclerotic heart disease of native coronary artery without angina pectoris; E78.5 Hyperlipidemia, unspecified; R53.81 Other malaise; Z79.890 Hormone replacement therapy; Z79.82 Long term (current) use of aspirin; Z79.899 Other long term (current) drug therapy; Z86.73 Personal history of transient ischemic attack (TIA), and cerebral infarction without residual deficits; I25.2 Old myocardial infarction
CPT/HCPCS: 99285

== ENCOUNTER 2025-05-13 01:36 | Emergency (ER) | payer MEDICARE, MEDICAID, SELFPAY ==
[2018-09-21 13:23] VITALS: BMI 29.3
[2025-05-13 01:37] VITALS: BP 120/78; PULSE 81; RESP 18; TEMP 36.8; O2SAT 95; BMI 27.7
--- NOTE | 2025-05-13 02:12 | ED.VIS.BACK ---
HPI History of Present Illness Chief Complaint: Back Informant: patient Narrative Narrative: Sent in from [facility] for evaluation. Chronic back pain history of lumbar fusions. Chronic leg pains. History of diabetes neuropathy. End-stage renal he is on dialysis still makes urine. Dialysis Fridays. She awakened with pains to her bilateral legs. She concerns of not. History of Charcot joint to the foot. Denies trauma. Pain to her back rating to her side similar to her chronic back pain. She states facility decrease her methadone 2.5 mg twice a day from 3 times a day. She had her gabapentin increased recently to 300 mg 3 times a day. She is on Valium 2 mg as needed. She took her gabapentin last night, she did not take her muscle relaxers. She states they are weaning her off due to needing her to see pain management to continue medications. She has seen Dr. Matute in the past reporting she was released from the office due missing appointments stating she ended up at a senior care at that time. [facility] Medical History History of stress test History of echocardiogram History of transesophageal echocardiography (HONG) History of TIA (transient ischemic attack) History of myocardial infarction Diabetes mellitus type 2 with complications Non-pressure chronic ulcer of ankle with fat layer exposed Secondary hyperparathyroidism Non-pressure chronic ulcer of right ankle with necrosis of muscle Non-pressure chronic ulcer of left ankle with necrosis of muscle Adverse effect of synthetic cannabinoids, initial encounter Avery coma scale score 13-15, at arrival to emergency department Acute alteration in mental status Short Achilles tendon (acquired), left ankle Short Achilles tendon (acquired), right ankle Acquired cavovarus deformity of left foot Acquired cavovarus deformity of right foot Type 2 diabetes mellitus with diabetic polyneuropathy Adult failure to thrive ESRD (end stage renal disease) on dialysis Drowsiness Mental status, decreased Carotid artery stenosis MSSA bacteremia ESRD on hemodialysis Osteomyelitis Anemia in chronic illness Type 2 diabetes mellitus Foot osteomyelitis, left Chronic renal disease, stage 4, severely decreased glomerular filtration rate (GFR) between 15-29 mL/min/1.73 square meter Acute on chronic anemia Chronic ulcer of right foot with necrosis of bone Chronic kidney disease, stage 4 (severe) Diabetes mellitus with diabetic polyneuropathy Diabetic foot ulcers Chronic kidney disease, stage 3b Charcot's joint, right ankle and foot Charcot's joint, left ankle and foot Cellulitis Acute lumbar radiculopathy Essential hypertension Adult failure to thrive COVID-19 (08/28/21) Chronic ulcer of right leg with fat layer exposed Ulcer of left foot with fat layer exposed Chronic ulcer of right foot with fat layer exposed Hyperparathyroidism, secondary renal Iron deficiency anemia Bilateral edema of lower extremity Chronic foot pain Non-pressure chronic 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 layer exposed Debility Charcot's joint of right foot Diabetes Non-smoker Myocardial infarct Hypertension TIA (transient ischemic attack) Amputation foot, bilat Non-pressure chronic ulcer of other part of left foot with fat layer exposed 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 Ulcer of left foot with necrosis of muscle Ulcer of left foot with muscle involvement without evidence of necrosis Anxiety and depression Diabetic infection of left foot Delayed wound healing Non-compliance Diabetic polyneuropathy Ischemic cardiomyopathy Obesity (BMI 30.0-34.9) Acquired varus deformity of left foot Acquired varus deformity of right foot Atherosclerosis of [place] coronary artery of [place] heart without angina pectoris Hemoglobin A1c greater than 9.0% NSTEMI (non-ST elevated myocardial infarction) (09/20/18) GERD (gastroesophageal reflux disease) HLD (hyperlipidemia) Back pain, chronic RLS (restless legs syndrome) Home Medications ?Medication ?Instructions ?Recorded ?Last Taken ?Type paroxetine HCl 20 mg tablet 30 mg PO QHS DEPRESSION 07/07/21 04/07/22 History ascorbic acid (vitamin C) 500 mg 500 mg PO BID supplement 05/05/22 Unknown History tablet (Vitamin C) pantoprazole 40 mg tablet,delayed 40 mg PO BIDCM GERD 07/19/22 Unknown History release folic acid 800 mcg tablet 0.8 mg PO DAILY supplement 12/16/23 Unknown History levothyroxine 25 mcg tablet 25 mcg PO DAILY thyroid 12/16/23 Unknown History aspirin 81 mg capsule 81 mg PO DAILY blood thinner #30 12/26/23 Unknown Rx caps atorvastatin 40 mg tablet 40 mg PO QHS cholesterol 03/18/24 06/26/24 History acetaminophen 325 mg tablet 650 mg PO Q6H PRN fever or pain 07/09/24 Unknown History insulin lispro 100 unit/mL See Protocol subcut TIDAC blood 09/13/24 Unknown History subcutaneous pen (Humalog KwikPen sugar (U-100) Insulin) L.acidophil,salivari-Bifido 1 cap PO 4X/DAY #0 caps 09/21/24 Unknown Rx bifidum-Strep thermoph 175 mg capsule nutrition tx glu 120 ml PO TIDCM #0 mL 09/21/24 Unknown Rx intol,lac-free,soy-fiber 0.06 gram-1.2 kcal/mL liquid (Glucerna 1.2 Howie) carvedilol 25 mg tablet 12.5 mg PO QHS blood pressure 12/06/24 Unknown History gabapentin 100 mg capsule 100 mg PO TID pain 12/06/24 Unknown History levetiracetam 500 mg tablet 250 mg PO QHS 12/06/24 Unknown History levetiracetam 500 mg tablet 500 mg PO BID 12/06/24 Unknown History ropinirole 0.25 mg tablet 0.25 mg PO QHS 12/06/24 Unknown History artificial 1 drp ophthalmic (eye) QHS 02/28/25 Unknown History tears(zeeprcu-dwhvfuue-cbppzgd) 0.1 %-0.3 %-0.2 % eye drops (GenTeal Tears Moderate) hydrocortisone 1 % topical cream 1 applic topical BID PRN itching 02/28/25 Unknown History (Cortisone (hydrocortisone)) hydroxyzine HCl 25 mg tablet 25 mg PO TID PRN itching 02/28/25 Unknown History ondansetron HCl 4 mg tablet 4 mg PO Q8H 02/28/25 Unknown History carvedilol 12.5 mg tablet (Coreg) 12.5 mg PO SUTUTHSA 03/18/25 Unknown History hydralazine 100 mg tablet 100 mg PO BID 03/18/25 Unknown History lorazepam 0.5 mg tablet 0.5 mg PO DAILY anxiety 03/18/25 Unknown History melatonin 5 mg capsule 5 mg PO QHS 03/18/25 Unknown History sucralfate 1 gram tablet 1 g PO ACHS indigestion 03/18/25 Unknown History acetaminophen 500 mg capsule 1,000 mg PO QHS 04/11/25 Unknown History clobetasol-propionate 1 applic topical CONT PRN rash 04/11/25 Unknown History insulin lispro 100 unit/mL 5 unit subcut ACHS 04/11/25 Unknown History subcutaneous pen (Humalog KwikPen (U-100) Insulin) methadone 5 mg tablet 2.5 mg (1/2 x 5 mg) PO BID 30 days 04/12/25 Unknown Rx #30 tabs diazepam 5 mg tablet (Valium) 5 mg PO TID PRN muscle spasm 5 05/02/25 Unknown Rx days #15 tabs gabapentin 300 mg capsule 300 mg PO TID 30 days #90 caps 05/02/25 Unknown Rx Allergy/AdvReac Type Severity Reaction Status Date / Time fentanyl Allergy Other Verified 05/13/25 01:39 Penicillins Allergy swelling Verified 05/13/25 01:39 in throat vancomycin Allergy Itching Verified 05/13/25 01:39 metronidazole AdvReac Nausea Verified 05/13/25 01:39 Family History Mother Diabetes CVA (cerebral vascular accident) Brother CAD (coronary artery disease) CABG X 3 Cancer testicular Diabetes Brother CAD (coronary artery disease) CABG X3 Diabetes Brother CAD (coronary artery disease) Stents Diabetes Sister CAD (coronary artery disease) CABG x 3 CVA (cerebral vascular accident) Diabetes Surgical History History of cardiac catheterization History of History of foot surgery History of bilateral carpal tunnel release History of rotator cuff surgery History of coronary artery stent placement (12/31/20) Social History household members: none number of children: 2 current occupational status: disabled Smoking Status: Never smoker alcohol intake: never substance use type: does not use caffeine: Yes Type: carbonated beverages Number of servings: 2 ROS ROS ED Constitutional Constitutional ED: Denies fever(s) Cardiovascular Cardiovascular: Denies chest pain Respiratory/Chest Respiratory/Chest: Denies cough Gastrointestinal Gastrointestinal: Denies diarrhea or vomiting Musculoskeletal Musculoskeletal: Reports none, back pain and other Details: Pain in legs Integumentary Denies rash or wounds Neurologic Neurologic: Denies weakness EXAM Physical Exam Const Vital Signs: 05/13/25 01:37 05/13/25 02:50 Temperature 98.3 F 98.0 F Temperature Source Oral Pulse Rate 81 80 Respiratory Rate 18 18 Blood Pressure 120/78 120/80 Blood Pressure Mean 92 93 Pulse Ox 95 97 Oxygen Delivery Method Room Air Positive well nourished and well developed Constitutional Narrative: Awake sitting nontoxic General Appearance ED: well developed HEENT Reports moist mucous membranes normocephalic and atraumatic Eyes General Eye ED: Yes normal appearance of both eyes Neck full ROM Chest Wall Chest: Negative for tenderness Resp normal respiratory effort and normal air movement Effort and Inspection: symmetric chest movement; Negative for respiratory distress Cardio regular rate, regular rhythm and no murmurs Peripheral Pulses: pulses 2+ throughout GI normal to inspection, nondistended, normoactive bowel sounds and non-tender Palpation: Negative for guarding or rebound tenderness present Back/Spine Back/Spine Narrative: Reproducible right paralumbar tenderness. Straight leg test negative. There is midline thoracic and lumbar scar noted. Extremity Extremity Narrative: Right lower extremity: Tenderness along the ruiz anteriorly where patient concerns of knots. She had varicose veins medially however nontender no palpable cords noted. No calf pain. Soft compartments. Pulses intact distally. Left lower extremity: No leg or ankle tenderness. Tender palpation along the plantar aspect, flat-footed, Charcot joint tenderness at the midfoot plantar aspect. Skin is intact. General Extremety ED: Yes tenderness; Negative for edema General Extremity: Negative for edema Neuro oriented x3 and no sensory deficits noted Sensorium / Orientation: awake and alert MDM MDM MDM Narrative Medical decision making narrative: Interventions / MDM: Differential diagnosis: Chronic back and leg pains. Charcot joint. End-stage renal is on hemodialysis. Diagnosis considered but do not suspect: No clinical compartment syndrome, no thrombophlebitis, no clinical DVT. My EKG interpretation: N/A Imaging independently reviewed and interpreted by myself: N/A External documents reviewed: N/A Test considered but not ordered:N/A ED course: Patient chronic pains neck and legs. Soft compartments. Pulses intact distally. From her reported history she is being weaned off methadone stating she needs to be referred to pain management. She was released from pain management [facility]-door. Discussed with her with her being weaned off I would not build to give opiates. She need to discuss with her providers at the facility. She does not take her muscle relaxer therefore given a shot of Norflex. She is on gabapentin 300 mg along with Valium from [facility] report filled a couple days ago. She will coordinate with her facility to be referred to pain management if needed to continue any pain doses. She will be discharged back to facility. Re-evaluation: stable Disposition discussed with patient/family/significant other: Patient Case discussed with consulting clinician: N/A This note was generated with Joyus dictation software. It may contain incorrect words, spelling, and punctuation that were not noted in checking the note before signing. Discharge Plan Triage Chief Complaint: Back ED Provider: Freddy Gloria Dx/Rx/DC Orders Clinical Impression: Chronic back pain, Diabetic neuropathy, Charcot joint of foot, ESRD (end stage renal disease) on dialysis Instructions: ED Chronic Pain Prescriptions: No Action levetiracetam 500 mg tablet 250 mg PO QHS Rx Instructions: M-W-F 500mg levetiracetam 500 mg tablet 500 mg PO BID ropinirole 0.25 mg tablet 0.25 mg PO QHS Rx Instructions: administer 1-3 hours before bedtime artificial tear([id number]) [GenTeal Tears Moderate] 0.1-0.3-0.2 % drops 1 drp ophthalmic (eye) QHS hydrocortisone [Cortisone (hydrocortisone)] 1 % cream 1 applic topical BID PRN (Reason: itching) hydroxyzine HCl 25 mg tablet 25 mg PO TID PRN (Reason: itching) ondansetron HCl 4 mg tablet 4 mg PO Q8H paroxetine HCl 20 mg tablet 30 mg PO QHS Patient Comments: TAKE 1 TABLET BY MOUTH EVERY DAY IN THE EVENING ascorbic acid (vitamin C) [Vitamin C] 500 mg Tablet 500 mg PO BID pantoprazole 40 mg tablet,delayed release (DR/EC) 40 mg PO BIDCM gabapentin 100 mg capsule 100 mg PO TID atorvastatin 40 mg tablet 40 mg PO QHS carvedilol 25 mg tablet 12.5 mg PO QHS acetaminophen 325 mg Tablet 650 mg PO Q6H PRN (Reason: fever or pain) insulin lispro [Humalog KwikPen Insulin] 100 unit/mL Insulin Pen See Protocol subcut TIDAC Protocol: 4. Sliding Scale Insulin High-Med Dosing Condition: 150-199 mg/dl = 2 units Condition: 200-259 mg/dl = 4 units Condition: 260-324 mg/dl = 6 units Condition: 325-374 mg/dl = 8 units Condition: 375-409 mg/dl = 10 units Condition: 410-449 mg/dl = 11 units Condition: Greater than 449 call physician Protocol Text: Suggested for: - Patients on Total Daily Insulin Dose of 56-80 units - Patient who are known to be insulin resistant or septic HIGH MEDIUM DOSING ALGORITHM L.darleneoph,saliva-B.bif-S.therm 175 mg Capsule 1 cap PO 4X/DAY Qty: 0 0RF Glucerna 1.2 Howie 0.06-1.2 gram-kcal/mL Liquid 120 ml PO TIDCM Qty: 0 0RF folic acid 800 mcg tablet 0.8 mg PO DAILY Patient Comments: TAKE 1 TABLET BY MOUTH EVERY DAY levothyroxine 25 mcg tablet 25 mcg PO DAILY Patient Comments: TAKE 1 TABLET BY MOUTH EVERY DAY BEFORE BREAKFAST aspirin 81 mg capsule 81 mg PO DAILY Qty: 30 1RF melatonin 5 mg capsule 5 mg PO QHS carvedilol [Coreg] 12.5 mg tablet 12.5 mg PO SUTUTHSA Rx Instructions: must administer with a meal/food DO NOT ADMINISTER BEFORE DIALYSIS hydralazine 100 mg tablet 100 mg PO BID sucralfate 1 gram Tablet 1 g PO ACHS lorazepam 0.5 mg Tablet 0.5 mg PO DAILY acetaminophen 500 mg capsule 1,000 mg PO QHS clobetasol-propionate 1 applic topical CONT PRN (Reason: rash) insulin lispro [Humalog KwikPen Insulin] 100 unit/mL insulin pen 5 unit subcut ACHS methadone 5 mg tablet 2.5 mg PO BID 30 Days Qty: 30 0RF gabapentin 300 mg capsule 300 mg PO TID 30 Days Qty: 90 0RF diazepam [Valium] 5 mg tablet 5 mg PO TID PRN (Reason: muscle spasm) 5 Days Qty: 15 0RF Primary Care Provider: Pat Hughes CARBURIZER Referrals: Pat Hughes CARBURIZER, CARBURIZER-C [Primary Care Provider] - 1 Day Activity Restrictions/Additional Instructions: You have filled prescriptions of gabapentin and Valium at your facility. You report you are being weaned off of methadone and need to be seen by pain management to continue. You need to discuss with your healthcare providers there to refer you to pain management as you reported you were released from pain management next-door. Print Language: Ukrainian Disposition Disposition: Home, Self Care Discharge Date/Time: 05/13/25 03:04
[2025-05-13] MEDS: Orphenadrine 60 MG/2 ML Ampul IM (02:13)
[2025-05-13 02:50] VITALS: BP 120/80; PULSE 80; RESP 18; TEMP 36.7; O2SAT 97
== END 2025-05-13 03:04 | disposition home or self-care (01) ==
PROVIDERS: Emergency Provider Emergency Medicine; PCP Nurse Practitioner Adult Health; Visit Provider Emergency Medicine
DX: M54.9 Dorsalgia, unspecified (principal); I12.0 Hypertensive chronic kidney disease with stage 5 chronic kidney disease or end stage renal disease; N18.6 End stage renal disease; E11.22 Type 2 diabetes mellitus with diabetic chronic kidney disease; E11.40 Type 2 diabetes mellitus with diabetic neuropathy, unspecified; G89.29 Other chronic pain; Z99.2 Dependence on renal dialysis; M79.605 Pain in left leg; E78.5 Hyperlipidemia, unspecified; I25.10 Atherosclerotic heart disease of native coronary artery without angina pectoris; K21.9 Gastro-esophageal reflux disease without esophagitis; M79.604 Pain in right leg
CPT/HCPCS: 96372; 99284

== ENCOUNTER 2025-05-23 14:19 | Emergency (ER) | payer MEDICARE, MEDICAID, SELFPAY ==
[2018-09-21 13:23] VITALS: BMI 29.3
[2025-05-23 14:21] VITALS: BP 166/133; PULSE 86; RESP 18; TEMP 36.8; O2SAT 98; BMI 29.3
--- NOTE | 2025-05-23 15:15 | EX.ED.DYSGE1 ---
HPI <LOY Avina - Last Filed: 05/23/25 17:22> History of Present Illness Chief Complaint: General Illness Narrative Narrative: 59-year-old female with PMH of ESRD on HD MWF, TIA, DM2 states she was at the creative services specialist this morning to address a right foot wound and was waiting for transport home when she developed allover body pain worse in both legs. No trauma. She also notes her left hand has been swollen for the last few days without an injury. She denies fever chills nausea or vomiting. She states the creative services specialist said her right ankle wound needs dressing changes daily and follow-up with wound care but is not infected and there is no need for antibiotics. She is supposed to be on methadone 2.5 mg but forgot to dose this morning. She lives in apartment/assisted living and has to go downstairs to get her medication PFS <LOY Avina - Last Filed: 05/23/25 17:22> [facility] Medical History History of stress test History of echocardiogram History of transesophageal echocardiography (HONG) History of TIA (transient ischemic attack) History of myocardial infarction Diabetes mellitus type 2 with complications Non-pressure chronic ulcer of ankle with fat layer exposed Secondary hyperparathyroidism Non-pressure chronic ulcer of right ankle with necrosis of muscle Non-pressure chronic ulcer of left ankle with necrosis of muscle Adverse effect of synthetic cannabinoids, initial encounter [place] coma scale score 13-15, at arrival to emergency department Acute alteration in mental status Short Achilles tendon (acquired), left ankle Short Achilles tendon (acquired), right ankle Acquired cavovarus deformity of left foot Acquired cavovarus deformity of right foot Type 2 diabetes mellitus with diabetic polyneuropathy Adult failure to thrive ESRD (end stage renal disease) on dialysis Drowsiness Mental status, decreased Carotid artery stenosis MSSA bacteremia ESRD on hemodialysis Osteomyelitis Anemia in chronic illness Type 2 diabetes mellitus Foot osteomyelitis, left Chronic renal disease, stage 4, severely decreased glomerular filtration rate (GFR) between 15-29 mL/min/1.73 square meter Acute on chronic anemia Chronic ulcer of right foot with necrosis of bone Chronic kidney disease, stage 4 (severe) Diabetes mellitus with diabetic polyneuropathy Diabetic foot ulcers Chronic kidney disease, stage 3b Charcot's joint, right ankle and foot Charcot's joint, left ankle and foot Cellulitis Acute lumbar radiculopathy Essential hypertension Adult failure to thrive COVID-19 (08/28/21) Chronic ulcer of right leg with fat layer exposed Ulcer of left foot with fat layer exposed Chronic ulcer of right foot with fat layer exposed Hyperparathyroidism, secondary renal Iron deficiency anemia Bilateral edema of lower extremity Chronic foot pain Non-pressure chronic 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 layer exposed Debility Charcot's joint of right foot Diabetes Non-smoker Myocardial infarct Hypertension TIA (transient ischemic attack) Amputation foot, bilat Non-pressure chronic ulcer of other part of left foot with fat layer exposed 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 Ulcer of left foot with necrosis of muscle Ulcer of left foot with muscle involvement without evidence of necrosis Anxiety and depression Diabetic infection of left foot Delayed wound healing Non-compliance Diabetic polyneuropathy Ischemic cardiomyopathy Obesity (BMI 30.0-34.9) Acquired varus deformity of left foot Acquired varus deformity of right foot Atherosclerosis of [place] coronary artery of [place] heart without angina pectoris Hemoglobin A1c greater than 9.0% NSTEMI (non-ST elevated myocardial infarction) (09/20/18) GERD (gastroesophageal reflux disease) HLD (hyperlipidemia) Back pain, chronic RLS (restless legs syndrome) Home Medications ?Medication ?Instructions ?Recorded ?Last Taken ?Type paroxetine HCl 20 mg tablet 30 mg PO QHS DEPRESSION 07/07/21 04/07/22 History ascorbic acid (vitamin C) 500 mg 500 mg PO BID supplement 05/05/22 Unknown History tablet (Vitamin C) pantoprazole 40 mg tablet,delayed 40 mg PO BIDCM GERD 07/19/22 Unknown History release folic acid 800 mcg tablet 0.8 mg PO DAILY supplement 12/16/23 Unknown History levothyroxine 25 mcg tablet 25 mcg PO DAILY thyroid 12/16/23 Unknown History aspirin 81 mg capsule 81 mg PO DAILY blood thinner #30 12/26/23 Unknown Rx caps atorvastatin 40 mg tablet 40 mg PO QHS cholesterol 03/18/24 06/26/24 History acetaminophen 325 mg tablet 650 mg PO Q6H PRN fever or pain 07/09/24 Unknown History insulin lispro 100 unit/mL See Protocol subcut TIDAC blood 09/13/24 Unknown History subcutaneous pen (Humalog KwikPen sugar (U-100) Insulin) L.acidophil,salivari-Bifido 1 cap PO 4X/DAY #0 caps 09/21/24 Unknown Rx bifidum-Strep thermoph 175 mg capsule nutrition tx glu 120 ml PO TIDCM #0 mL 09/21/24 Unknown Rx intol,lac-free,soy-fiber 0.06 gram-1.2 kcal/mL liquid (Glucerna 1.2 Howie) carvedilol 25 mg tablet 12.5 mg PO QHS blood pressure 12/06/24 Unknown History gabapentin 100 mg capsule 100 mg PO TID pain 12/06/24 Unknown History levetiracetam 500 mg tablet 250 mg PO QHS 12/06/24 Unknown History levetiracetam 500 mg tablet 500 mg PO BID 12/06/24 Unknown History ropinirole 0.25 mg tablet 0.25 mg PO QHS 12/06/24 Unknown History artificial 1 drp ophthalmic (eye) QHS 02/28/25 Unknown History tears(rzdjraj-teymfyzf-hqymqwl) 0.1 %-0.3 %-0.2 % eye drops (GenTeal Tears Moderate) hydrocortisone 1 % topical cream 1 applic topical BID PRN itching 02/28/25 Unknown History (Cortisone (hydrocortisone)) hydroxyzine HCl 25 mg tablet 25 mg PO TID PRN itching 02/28/25 Unknown History ondansetron HCl 4 mg tablet 4 mg PO Q8H 02/28/25 Unknown History carvedilol 12.5 mg tablet (Coreg) 12.5 mg PO SUTUTHSA 03/18/25 Unknown History hydralazine 100 mg tablet 100 mg PO BID 03/18/25 Unknown History lorazepam 0.5 mg tablet 0.5 mg PO DAILY anxiety 03/18/25 Unknown History melatonin 5 mg capsule 5 mg PO QHS 03/18/25 Unknown History sucralfate 1 gram tablet 1 g PO ACHS indigestion 03/18/25 Unknown History acetaminophen 500 mg capsule 1,000 mg PO QHS 04/11/25 Unknown History clobetasol-propionate 1 applic topical CONT PRN rash 04/11/25 Unknown History insulin lispro 100 unit/mL 5 unit subcut ACHS 04/11/25 Unknown History subcutaneous pen (Humalog KwikPen (U-100) Insulin) methadone 5 mg tablet 2.5 mg (1/2 x 5 mg) PO BID 30 days 04/12/25 Unknown Rx #30 tabs diazepam 5 mg tablet (Valium) 5 mg PO TID PRN muscle spasm 5 05/02/25 Unknown Rx days #15 tabs gabapentin 300 mg capsule 300 mg PO TID 30 days #90 caps 05/02/25 Unknown Rx Allergy/AdvReac Type Severity Reaction Status Date / Time fentanyl Allergy Other Verified 05/23/25 14:26 Penicillins Allergy swelling Verified 05/23/25 14:26 in throat vancomycin Allergy Itching Verified 05/23/25 14:26 metronidazole AdvReac Nausea Verified 05/23/25 14:26 Family History Mother Diabetes CVA (cerebral vascular accident) Brother CAD (coronary artery disease) CABG X 3 Cancer testicular Diabetes Brother CAD (coronary artery disease) CABG X3 Diabetes Brother CAD (coronary artery disease) Stents Diabetes Sister CAD (coronary artery disease) CABG x 3 CVA (cerebral vascular accident) Diabetes Surgical History History of cardiac catheterization History of History of foot surgery History of bilateral carpal tunnel release History of rotator cuff surgery History of coronary artery stent placement (12/31/20) Social History household members: none number of children: 2 current occupational status: disabled Smoking Status: Never smoker alcohol intake: never substance use type: does not use caffeine: Yes Type: carbonated beverages Number of servings: 2 ROS <LOY Avina - Last Filed: 05/23/25 17:22> ROS ED ROS Narrative Constitutional: Negative for fever, chills, malaise. CVS: Negative for chest pain. Respiratory: Negative for shortness of breath. GI: Negative for abdominal pain, nausea, vomiting. EXAM <LOY Avina - Last Filed: 05/23/25 17:22> Physical Exam Narrative Exam Narrative: CONST: Patient moving around in bed moving both lower extremities frequently. EYES: Normal inspection. NECK: Normal inspection. RESP: No respiratory distress, CTAB. CVS: Regular rate and rhythm, no murmur, no gallop. ABD: Soft and nontender, no guarding or rebound, nondistended. SKIN: Color normal, no rash, warm, dry, intact. EXTREMITIES: Left dorsal hand is swollen without erythema, warmth, or tenderness. 2+ radial pulse. Left upper extremity fistula site appears clean with no overlying skin changes. Both lower extremities appear normal, right ankle and foot have large gauze bandage from the podiatry office. 2+ left DP pulse. Moving both hips and knees to full range of motion, no swelling or skin changes noted. NEURO: Alert and answering questions appropriately. PSYCH: Normal affect. Const Vital Signs: 05/23/25 14:21 05/23/25 14:36 05/23/25 17:00 Temperature 98.3 F Temperature Source Oral Pulse Rate 86 92 Respiratory Rate 18 13 Respiratory Effort Normal Non-Labored Respiratory Pattern Normal Blood Pressure 166/133 H 143/100 H Blood Pressure Mean 144 114 Pulse Ox 98 93 Oxygen Delivery Method Room Air <Dr. Kamilla Taylor MD - Last Filed: 05/25/25 00:28> Physical Exam Const Vital Signs: 05/23/25 14:21 05/23/25 14:36 05/23/25 17:00 Temperature 98.3 F Temperature Source Oral Pulse Rate 86 92 Respiratory Rate 18 13 Respiratory Effort Normal Non-Labored Respiratory Pattern Normal Blood Pressure 166/133 H 143/100 H Blood Pressure Mean 144 114 Pulse Ox 98 93 Oxygen Delivery Method Room Air MDM <LOY Avina - Last Filed: 05/23/25 17:22> [facility] Narrative Medical decision making narrative: 59-year-old female presents for a few days of left hand swelling and bilateral leg pain that started a few hours ago. She has a history of ESRD on HD and states she completed dialysis yesterday through her chest port. She has a left arm fistula that has not been used yet. She complains of allover body pain especially in both legs and is moving them frequently. She did not take methadone this morning. She appears older than her stated age. She looks uncomfortable but not toxic. She is hypertensive with otherwise normal vital signs. Left dorsal hand is swollen but there is no redness, warmth or tenderness and the extremity is neurovascularly intact. Left upper extremity fistula has no abnormalities. Her left lower extremity appears normal and she is moving it frequently and distal pulses are intact. Her right foot has a large wrap bandage that was placed by the creative services specialist this morning and she states he does not think it is infected and recommended wound care so I did not remove this. She was given her home methadone dose of 2.5 mg. Labs show normal white count at 6.1, Hgb of 8.9 around baseline, hyperkalemia at 6.2 with baseline creatinine of 5.06. She states she completed dialysis yesterday. EKG shows sinus rhythm with no hyperkalemic changes. I ordered IV calcium gluconate, insulin, dextrose, and albuterol. Patient is feeling somewhat improved after methadone and is comfortable being discharged, was instructed to follow-up for her scheduled dialysis tomorrow, and see her primary care doctor. She was discharged in stable condition. Left upper extremity ultrasound was negative for DVT. I am not sure what is causing her hand swelling but there is no sign of cellulitis, abscess, she has no pain with movement and is neurovascularly intact so I am not concerned for septic joint. I recommended ice and elevation. Patient seen and evaluated with WILL. I personally interviewed and examined the patient. I was involved in all aspects of patient's orders, interpretation of results, and treatment. In brief patient is a 59-year-old female presenting to the emergency department for arm and leg pain. Patient has an extensive past medical history as below notable for CKD on dialysis. She states they were using her left upper chest port but she has a fistula in the left upper extremity that they are planning to use. She states that for the past 3 days she has had left hand swelling worse than normal. Reports that she was at a wound care visit today and was waiting for transport back when she developed allover body pain. She is on methadone and did not take her medication this morning. History & Record Review Discussion w/independent historian: Patient Additional record(s) reviewed:: Prior ED visit and Prior labs Lab Data Attestation: I reviewed the patient's lab results. Labs: Laboratory Results - last 24 hr 05/23/25 05/23/25 15:21 16:34 WBC 6.1 RBC 2.91 L Hgb 8.9 L Hct 28.8 L MCV 99.0 MCH 30.6 MCHC 30.9 L RDW Std Deviation 59.8 H RDW Coeff of Fior 16.5 H Plt Count 214 MPV 10.8 Immature Gran % (Auto) 0.700 Neut % (Auto) 79.2 H Lymph % (Auto) 9.9 L [place] % (Auto) 7.9 Eos % (Auto) 2.0 Baso % (Auto) 0.3 Absolute Neuts (auto) 4.8 Absolute Lymphs (auto) 0.60 L Nucleated RBC % 0.3 Sodium 134 Potassium 6.2 H* Chloride 95 L Carbon Dioxide 25.0 Anion Gap 15 BUN 51 H Creatinine 5.06 H Estim Creat Clear Calc 12.51 L Est GFR (MDRD) Non-Af 9 L BUN/Creatinine Ratio 10.0 Glucose 150 H Calcium 8.7 POC Glucose 138 H Radiography Diagnostic Testing: Clinical Impression(s) from Imaging Studies Venous Doppler Study 05/23/25 15:55 Interpretation Summary Deep veins of the left upper extremity are patent and compressible segmentally. There is no evidence of deep vein thrombosis. Superficial veins of the left upper extremity are patent and compressible segmentally. There is no evidence of superficial vein thrombosis. Left basilic fistula noted. Ordering Physician: Kamilla Taylor Referring Physician: Pat Hughes Performed By: Erika Tubbs RVT ??? EKG Initial EKG: Attestation: I personally reviewed and interpreted this EKG as follows: Interpretation: Sinus Rhythm and No Acute Injury Pattern Comments: Normal sinus rhythm 87 bpm Normal intervals, no acute ischemic changes No peaked T waves <Dr. Kamilla Taylor MD - Last Filed: 05/25/25 00:28> [facility] Narrative Medical decision making narrative: 59-year-old female presents for a few days of left hand swelling and bilateral leg pain that started a few hours ago. She has a history of ESRD on HD and states she completed dialysis yesterday through her chest port. She has a left arm fistula that has not been used yet. She complains of allover body pain especially in both legs and is moving them frequently. She did not take methadone this morning. She appears older than her stated age. She looks uncomfortable but not toxic. She is hypertensive with otherwise normal vital signs. Left dorsal hand is swollen but there is no redness, warmth or tenderness and the extremity is neurovascularly intact. Left upper extremity fistula has no abnormalities. Her left lower extremity appears normal and she is moving it frequently and distal pulses are intact. Her right foot has a large wrap bandage that was placed by the creative services specialist this morning and she states he does not think it is infected and recommended wound care so I did not remove this. She was given her home methadone dose of 2.5 mg. Labs show normal white count at 6.1, Hgb of 8.9 around baseline, hyperkalemia at 6.2 with baseline creatinine of 5.06. She states she completed dialysis yesterday. EKG shows sinus rhythm with no hyperkalemic changes. I ordered IV calcium gluconate, insulin, dextrose, and albuterol. Patient is feeling somewhat improved after methadone and is comfortable being discharged, was instructed to follow-up for her scheduled dialysis tomorrow, and see her primary care doctor. She was discharged in stable condition. Left upper extremity ultrasound was negative for DVT. I am not sure what is causing her hand swelling but there is no sign of cellulitis, abscess, she has no pain with movement and is neurovascularly intact so I am not concerned for septic joint. I recommended ice and elevation. Patient seen and evaluated with WILL. I personally interviewed and examined the patient. I was involved in all aspects of patient's orders, interpretation of results, and treatment. In brief patient is a 59-year-old female presenting to the emergency department for arm and leg pain. Patient has an extensive past medical history as below notable for CKD on dialysis. She states they were using her left upper chest port but she has a fistula in the left upper extremity that they are planning to use. She states that for the past 3 days she has had left hand swelling worse than normal. Reports that she was at a wound care visit today and was waiting for transport back when she developed allover body pain. She is on methadone and did not take her medication this morning. Ultrasound was ordered to rule out a DVT in her left upper extremity, this is negative for any clot. She was noted to be mildly hyperkalemic, medications were given including calcium, insulin, dextrose and albuterol. EKG has no hyperkalemic changes. Patient states that she is due for dialysis tomorrow and will go to this. She is appropriate for discharge given her symptoms improved after her methadone dose and she will be going to dialysis tomorrow which should help the hyperkalemia. Clinical impression Hyperkalemia Chronic anemia CKD Lab Data Labs: Laboratory Results - last 24 hr 05/23/25 05/23/25 15:21 16:34 WBC 6.1 RBC 2.91 L Hgb 8.9 L Hct 28.8 L MCV 99.0 MCH 30.6 MCHC 30.9 L RDW Std Deviation 59.8 H RDW Coeff of Fior 16.5 H Plt Count 214 MPV 10.8 Immature Gran % (Auto) 0.700 Neut % (Auto) 79.2 H Lymph % (Auto) 9.9 L [place] % (Auto) 7.9 Eos % (Auto) 2.0 Baso % (Auto) 0.3 Absolute Neuts (auto) 4.8 Absolute Lymphs (auto) 0.60 L Nucleated RBC % 0.3 Sodium 134 Potassium 6.2 H* Chloride 95 L Carbon Dioxide 25.0 Anion Gap 15 BUN 51 H Creatinine 5.06 H Estim Creat Clear Calc 12.51 L Est GFR (MDRD) Non-Af 9 L BUN/Creatinine Ratio 10.0 Glucose 150 H Calcium 8.7 POC Glucose 138 H Radiography Diagnostic Testing: Clinical Impression(s) from Imaging Studies Venous Doppler Study 05/23/25 15:55 Interpretation Summary Deep veins of the left upper extremity are patent and compressible segmentally. There is no evidence of deep vein thrombosis. Superficial veins of the left upper extremity are patent and compressible segmentally. There is no evidence of superficial vein thrombosis. Left basilic fistula noted. Ordering Physician: Kamilla Taylor Referring Physician: Pat Hughes Performed By: Erika Tubbs RVT ??? Discharge Plan Triage Chief Complaint: General Illness ED Midlevel Provider: Lexie Kovacs ED Provider: Kamilla Taylor Dx/Rx/DC Orders Clinical Impression: Acute hyperkalemia, ESRD on dialysis, Localized swelling on left hand, Bilateral leg pain Instructions: ED Hyperkalemia Prescriptions: No Action levetiracetam 500 mg tablet 250 mg PO QHS Rx Instructions: M-W-F 500mg levetiracetam 500 mg tablet 500 mg PO BID ropinirole 0.25 mg tablet 0.25 mg PO QHS Rx Instructions: administer 1-3 hours before bedtime artificial tear([id number]) [GenTeal Tears Moderate] 0.1-0.3-0.2 % drops 1 drp ophthalmic (eye) QHS hydrocortisone [Cortisone (hydrocortisone)] 1 % cream 1 applic topical BID PRN (Reason: itching) hydroxyzine HCl 25 mg tablet 25 mg PO TID PRN (Reason: itching) ondansetron HCl 4 mg tablet 4 mg PO Q8H paroxetine HCl 20 mg tablet 30 mg PO QHS Patient Comments: TAKE 1 TABLET BY MOUTH EVERY DAY IN THE EVENING ascorbic acid (vitamin C) [Vitamin C] 500 mg Tablet 500 mg PO BID pantoprazole 40 mg tablet,delayed release (DR/EC) 40 mg PO BIDCM gabapentin 100 mg capsule 100 mg PO TID atorvastatin 40 mg tablet 40 mg PO QHS carvedilol 25 mg tablet 12.5 mg PO QHS acetaminophen 325 mg Tablet 650 mg PO Q6H PRN (Reason: fever or pain) insulin lispro [Humalog KwikPen Insulin] 100 unit/mL Insulin Pen See Protocol subcut TIDAC Protocol: 4. Sliding Scale Insulin High-Med Dosing Condition: 150-199 mg/dl = 2 units Condition: 200-259 mg/dl = 4 units Condition: 260-324 mg/dl = 6 units Condition: 325-374 mg/dl = 8 units Condition: 375-409 mg/dl = 10 units Condition: 410-449 mg/dl = 11 units Condition: Greater than 449 call physician Protocol Text: Suggested for: - Patients on Total Daily Insulin Dose of 56-80 units - Patient who are known to be insulin resistant or septic HIGH MEDIUM DOSING ALGORITHM Ariessaliva-Carsonbif-S.therm 175 mg Capsule 1 cap PO 4X/DAY Qty: 0 0RF Glucerna 1.2 Howie 0.06-1.2 gram-kcal/mL Liquid 120 ml PO TIDCM Qty: 0 0RF folic acid 800 mcg tablet 0.8 mg PO DAILY Patient Comments: TAKE 1 TABLET BY MOUTH EVERY DAY levothyroxine 25 mcg tablet 25 mcg PO DAILY Patient Comments: TAKE 1 TABLET BY MOUTH EVERY DAY BEFORE BREAKFAST aspirin 81 mg capsule 81 mg PO DAILY Qty: 30 1RF melatonin 5 mg capsule 5 mg PO QHS carvedilol [Coreg] 12.5 mg tablet 12.5 mg PO [facility] Rx Instructions: must administer with a meal/food DO NOT ADMINISTER BEFORE DIALYSIS hydralazine 100 mg tablet 100 mg PO BID sucralfate 1 gram Tablet 1 g PO ACHS lorazepam 0.5 mg Tablet 0.5 mg PO DAILY acetaminophen 500 mg capsule 1,000 mg PO QHS clobetasol-propionate 1 applic topical CONT PRN (Reason: rash) insulin lispro [Humalog KwikPen Insulin] 100 unit/mL insulin pen 5 unit subcut ACHS methadone 5 mg tablet 2.5 mg PO BID 30 Days Qty: 30 0RF gabapentin 300 mg capsule 300 mg PO TID 30 Days Qty: 90 0RF diazepam [Valium] 5 mg tablet 5 mg PO TID PRN (Reason: muscle spasm) 5 Days Qty: 15 0RF Primary Care Provider: Pat Hughes FOURDRINIER MACHINE OPERATOR Referrals: Pat Hughes FOURDRINIER MACHINE OPERATOR, FOURDRINIER MACHINE OPERATOR-C [Primary Care Provider] - Activity Restrictions/Additional Instructions: Your potassium is high so you were given medications to bring it down but it is important you get dialysis done tomorrow. I am not sure what is causing your leg pains. I recommend you follow-up with your primary care doctor. Print Language: Khmer Disposition Disposition: Home, Self Care Discharge Date/Time: 05/23/25 17:27
--- NOTE | 2025-05-23 15:55 | VDUE_ITS ---
Reason For Study Reason For Study: Left arm swelling Left Proximal Left jugular vein is spontaneous, widely patent, phasic, with no intraluminal echogenicity noted. Left subclavian vein is spontaneous, widely patent, phasic, with no intraluminal echogenicity noted. Left Arm Left axillary vein is spontaneous, patent, phasic, competent, compressible and demonstrates augmentation. Left brachial vein is compressible. Left cephalic vein is compressible. Brachiocephalic fisula noted in the left arm. Basilic vein, 138.9/68.9 cm/sec. Basilic vein, 1692 ml/min. Left Lower Arm Left radial vein is compressible. Left ulnar vein is compressible. Procedure This was a unilateral left upper extremity venous doppler examination. Exam performed portable in ED. A preliminary report was called and/or faxed to Anjali IGLESIAS. VL/Venous Duplex US, Unilateral Interpretation Summary Deep veins of the left upper extremity are patent and compressible segmentally. There is no evidence of deep vein thrombosis. Superficial veins of the left upper extremity are patent and compressible segme ntally. There is no evidence of superficial vein thrombosis. Left basilic fistula noted. Ordering Physician: Kamilla Taylor Referring Physician: Pat Hughes Performed By: Erika Tubbs RVT ???
[2025-05-23 16:01] LABS: Anion Gap 15 (5-15); BUN 51 mg/dL (4-19); BUN/Creat Ratio 10.0 RATIO (10-20); Calcium,Total 8.7 mg/dL (7.6-11.0); Carbon Dioxide 25.0 mmol/L (21.0-32.0); Chloride 95 mmol/L (98-108); Estimated Creatinine Clearance 12.51 ml/min (50-250); Glucose 150 mg/dL (70-99); Potassium 6.2 mmol/L (3.3-5.1)
[2025-05-23 16:06] LABS: Hematocrit 28.8 % (37-47); Hemoglobin 8.9 g/dL (12.0-15.0); Immature Granulocytes Count 0.040 X10^3/uL (0.0-0.0); Mean Corp Hgb Conc 30.9 g/dL (32-36); Mean Corpuscular Volume 99.0 fL (81-99); Mean Platelet Vol. 10.8 fl (6.2-12.0); NRBC Flagged by Analyzer 0.3 % (0-5); POSITIVE DIFFERENTIAL YES; Platelet Count 214 K/mm3 (150-450); RBC Distribution Width CV 16.5 % (11.6-14.6); RBC Distribution Width SD 59.8 fl (35.1-43.9); Red Blood Count 2.91 M/mm3 (4.2-5.4); White Blood Count 6.1 K/mm3 (4.4-11.0)
--- NOTE | 2025-05-23 16:19 | ED.RN ---
this rn has asked pt mulitple times to keep ekg leads and bp cuff on, pt has removed moniotr muliple times
[2025-05-23] MEDS: Albuterol *CONC* 2.5mg/0.5mL VIAL.NEB. 10 MG INHALATION (16:24)
[2025-05-23] MEDS: Calcium Gluconate IV 3 GM in Syringe 1 EACH IV (16:38)
[2025-05-23] MEDS: Insulin Lispro 10 UNIT in Syringe 0 ML 6 UNIT IV (16:54)
[2025-05-23 17:00] VITALS: BP 143/100; PULSE 92; RESP 13; O2SAT 93
[2025-05-23 17:26] VITALS: BP 143/100; PULSE 92; RESP 13; TEMP 37.2; O2SAT 93
== END 2025-05-23 17:27 | disposition home or self-care (01) ==
PROVIDERS: Physician Assistant; Emergency Provider Student in an Organized Health Care Education/Training Program; PCP Nurse Practitioner Adult Health; Referring Provider Student in an Organized Health Care Education/Training Program; Visit Provider Student in an Organized Health Care Education/Training Program
DX: M79.89 Other specified soft tissue disorders (principal); N18.6 End stage renal disease; I12.0 Hypertensive chronic kidney disease with stage 5 chronic kidney disease or end stage renal disease; E11.22 Type 2 diabetes mellitus with diabetic chronic kidney disease; E11.42 Type 2 diabetes mellitus with diabetic polyneuropathy; Z79.4 Long term (current) use of insulin; E78.5 Hyperlipidemia, unspecified; Z79.891 Long term (current) use of opiate analgesic; Z99.2 Dependence on renal dialysis; D64.9 Anemia, unspecified; M79.605 Pain in left leg; M79.604 Pain in right leg; E87.5 Hyperkalemia; I25.10 Atherosclerotic heart disease of native coronary artery without angina pectoris; Z86.73 Personal history of transient ischemic attack (TIA), and cerebral infarction without residual deficits; I25.2 Old myocardial infarction; F41.8 Other specified anxiety disorders; Z79.899 Other long term (current) drug therapy; K21.9 Gastro-esophageal reflux disease without esophagitis; Z79.82 Long term (current) use of aspirin; G25.81 Restless legs syndrome; Z95.5 Presence of coronary angioplasty implant and graft
CPT/HCPCS: 80048; 82962; 85025; 93005; 93971; 94640; 96365; 96375; 99285; A4216; J0612

== ENCOUNTER 2025-05-28 17:49 | Observation (INO) | payer MEDICARE, MEDICAID, SELFPAY ==
[2018-09-21 13:23] VITALS: BMI 29.3
[2025-05-28 17:50] VITALS: BP 179/79; PULSE 77; RESP 18; TEMP 36.7; O2SAT 93; BMI 28.1
--- NOTE | 2025-05-28 17:56 | EKG12_ITS ---
Test Reason : PLACEMENT Blood Pressure : */* mmHG Vent. Rate : 79 BPM Atrial Rate : 79 BPM P-R Int : 174 ms QRS Dur : 92 ms QT Int : 410 ms P-R-T Axes : 55 22 33 degrees QTcB Int : 470 ms Normal sinus rhythm Normal ECG Confirmed by OTTO DELVALLE, DOMINIQUE ([id number]), subeditor DAVID CARCAMO ([id number]) on 05/29/2025 9:40:29 AM Referred By: Confirmed By: DOMINIQUE MENJIVAR MD
--- NOTE | 2025-05-28 18:19 | EX.ED.VIS.PS ---
HPI HPI - Psych History of Present Illness Chief Complaint: Suicidal Informant: patient and mental health staff Narrative Narrative: Patient is a 59-year-old female with significant past medical history including type 2 diabetes mellitus, chronic wound of the right ankle/heel, end-stage renal disease on hemodialysis (Tuesday and Tuesday), anemia of chronic illness, hypertension, TIA as well as anxiety depression worsening from the counseling center for concern of suicidal ideation with plan. Patient reports that she has thoughts of jumping off her fifth floor balcony. She is a resident of [facility]. She could not be safety plan and they could not move her room. There is no way of locking the doors to her Terrace. She has been more depressed and hopeless. She is sleeping about 2 hours at night. She does a lot of chronic pain (takes methadone and Robaxin for it). Apparently is also been having conflict with family. I was brought in by the counseling center for psychiatric placement. Her last hemodialysis was yesterday (Tuesday). She denies any acute physical complaints at this time. No report of any HI, auditory or visual hallucinations. [facility] Medical History History of stress test History of echocardiogram History of transesophageal echocardiography (HONG) History of TIA (transient ischemic attack) History of myocardial infarction Diabetes mellitus type 2 with complications Non-pressure chronic ulcer of ankle with fat layer exposed Secondary hyperparathyroidism Non-pressure chronic ulcer of right ankle with necrosis of muscle Non-pressure chronic ulcer of left ankle with necrosis of muscle Adverse effect of synthetic cannabinoids, initial encounter Avery coma scale score 13-15, at arrival to emergency department Acute alteration in mental status Short Achilles tendon (acquired), left ankle Short Achilles tendon (acquired), right ankle Acquired cavovarus deformity of left foot Acquired cavovarus deformity of right foot Type 2 diabetes mellitus with diabetic polyneuropathy Adult failure to thrive ESRD (end stage renal disease) on dialysis Drowsiness Mental status, decreased Carotid artery stenosis MSSA bacteremia ESRD on hemodialysis Osteomyelitis Anemia in chronic illness Type 2 diabetes mellitus Foot osteomyelitis, left Chronic renal disease, stage 4, severely decreased glomerular filtration rate (GFR) between 15-29 mL/min/1.73 square meter Acute on chronic anemia Chronic ulcer of right foot with necrosis of bone Chronic kidney disease, stage 4 (severe) Diabetes mellitus with diabetic polyneuropathy Diabetic foot ulcers Chronic kidney disease, stage 3b Charcot's joint, right ankle and foot Charcot's joint, left ankle and foot Cellulitis Acute lumbar radiculopathy Essential hypertension Adult failure to thrive COVID-19 (08/28/21) Chronic ulcer of right leg with fat layer exposed Ulcer of left foot with fat layer exposed Chronic ulcer of right foot with fat layer exposed Hyperparathyroidism, secondary renal Iron deficiency anemia Bilateral edema of lower extremity Chronic foot pain Non-pressure chronic 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 layer exposed Debility Charcot's joint of right foot Diabetes Non-smoker Myocardial infarct Hypertension TIA (transient ischemic attack) Amputation foot, bilat Non-pressure chronic ulcer of other part of left foot with fat layer exposed 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 Ulcer of left foot with necrosis of muscle Ulcer of left foot with muscle involvement without evidence of necrosis Anxiety and depression Diabetic infection of left foot Delayed wound healing Non-compliance Diabetic polyneuropathy Ischemic cardiomyopathy Obesity (BMI 30.0-34.9) Acquired varus deformity of left foot Acquired varus deformity of right foot Atherosclerosis of [place] coronary artery of [place] heart without angina pectoris Hemoglobin A1c greater than 9.0% NSTEMI (non-ST elevated myocardial infarction) (09/20/18) GERD (gastroesophageal reflux disease) HLD (hyperlipidemia) Back pain, chronic RLS (restless legs syndrome) Home Medications ?Medication ?Instructions ?Recorded ?Last Taken ?Type paroxetine HCl 20 mg tablet 30 mg PO QHS DEPRESSION 07/07/21 04/07/22 History pantoprazole 40 mg tablet,delayed 40 mg PO BIDCM GERD 07/19/22 Unknown History release levothyroxine 25 mcg tablet 25 mcg PO DAILY thyroid 12/16/23 Unknown History aspirin 81 mg capsule 81 mg PO DAILY blood thinner #30 12/26/23 Unknown Rx caps acetaminophen 325 mg tablet 650 mg PO Q6H PRN fever or pain 07/09/24 Unknown History insulin lispro 100 unit/mL See Protocol subcut TIDAC blood 09/13/24 Unknown History subcutaneous pen (Humalog KwikPen sugar (U-100) Insulin) L.acidophil,salivari-Bifido 1 cap PO 4X/DAY #0 caps 09/21/24 Unknown Rx bifidum-Strep thermoph 175 mg capsule carvedilol 25 mg tablet 12.5 mg PO QHS blood pressure 02/27/25 Unknown History levetiracetam 500 mg tablet 250 mg PO QHS 12/06/24 Unknown History levetiracetam 500 mg tablet 500 mg PO BID 12/06/24 Unknown History ondansetron HCl 4 mg tablet 4 mg PO Q8H 02/28/25 Unknown History carvedilol 12.5 mg tablet (Coreg) 12.5 mg PO SUTUTHSA 03/18/25 Unknown History hydralazine 100 mg tablet 100 mg PO SUTUTHSA 03/18/25 Unknown History melatonin 5 mg capsule 10 mg PO QHS 03/18/25 Unknown History sucralfate 1 gram tablet 1 g PO ACHS indigestion 03/18/25 Unknown History acetaminophen 500 mg capsule 1,000 mg PO QHS 04/11/25 Unknown History clobetasol-propionate 1 applic topical CONT PRN rash 04/11/25 Unknown History insulin lispro 100 unit/mL 5 unit subcut ACHS 04/11/25 Unknown History subcutaneous pen (Humalog KwikPen (U-100) Insulin) methadone 5 mg tablet 2.5 mg (1/2 x 5 mg) PO BID 30 days 04/12/25 Unknown Rx #30 tabs gabapentin 300 mg capsule 300 mg PO TID 30 days #90 caps 05/02/25 Unknown Rx diazepam 5 mg tablet (Valium) 5 mg PO QHS muscle spasm 05/28/25 Unknown History hydralazine 100 mg tablet 100 mg PO BID 05/28/25 Unknown History Allergy/AdvReac Type Severity Reaction Status Date / Time fentanyl Allergy Other Verified 05/28/25 17:59 Penicillins Allergy swelling Verified 05/28/25 17:59 in throat vancomycin Allergy Itching Verified 05/28/25 17:59 metronidazole AdvReac Nausea Verified 05/28/25 17:59 Family History Mother Diabetes CVA (cerebral vascular accident) Brother CAD (coronary artery disease) CABG X 3 Cancer testicular Diabetes Brother CAD (coronary artery disease) CABG X3 Diabetes Brother CAD (coronary artery disease) Stents Diabetes Sister CAD (coronary artery disease) CABG x 3 CVA (cerebral vascular accident) Diabetes Surgical History History of cardiac catheterization History of History of foot surgery History of bilateral carpal tunnel release History of rotator cuff surgery History of coronary artery stent placement (12/31/20) Social History household members: none number of children: 2 current occupational status: disabled Smoking Status: Never smoker alcohol intake: never substance use type: does not use caffeine: Yes Type: carbonated beverages Number of servings: 2 ROS ROS ED Constitutional Constitutional ED: Denies chills or fever(s) Cardiovascular Cardiovascular: Denies chest pain Respiratory/Chest Respiratory/Chest: Denies cough or dyspnea Gastrointestinal Gastrointestinal: Denies nausea or vomiting Musculoskeletal Musculoskeletal: Reports arthralgias and myalgias Integumentary Reports other Details: Chronic wound to the right foot Neurologic Neurologic: Reports weakness Psychiatric Psychiatric: Reports anxiety, depression, suicidal ideation and suicidal thoughts EXAM Physical Exam Const Vital Signs: 05/28/25 17:50 05/28/25 18:56 05/28/25 19:00 Temperature 98.0 F 97.9 F Temperature Source Oral Oral Pulse Rate 77 81 86 Respiratory Rate 18 20 H 18 Blood Pressure 179/79 H 168/88 H 168/88 H Blood Pressure Mean 112 114 114 Pulse Ox 93 91 92 Oxygen Delivery Method Room Air Room Air Room Air 05/28/25 20:00 05/28/25 21:00 05/29/25 00:11 Temperature 98.2 F 98.3 F Temperature Source Oral Temporal Pulse Rate 82 81 64 Respiratory Rate 18 18 14 Blood Pressure 145/73 H 153/76 H 124/55 H Blood Pressure Mean 97 101 78 Pulse Ox 100 100 95 Oxygen Delivery Method Room Air Room Air Room Air Positive well nourished and well developed Constitutional Narrative: Chronically ill-appearing General Appearance ED: well developed HEENT Reports moist mucous membranes normocephalic and atraumatic Eyes PERRL Neck supple and no JVD Chest Wall Chest Narrative: Tunneled dialysis catheter present in the left anterior chest wall Resp normal respiratory effort and clear to auscultation bilaterally Cardio no murmurs Cardio Narrative: AV fistula in the left upper arm with palpable thrill Rate: regular rate Rhythm: regular rhythm GI non-tender and non-distended Extremity normal to inspection General Extremety ED: Negative for edema General Extremity: Negative for edema Neuro oriented x3 Sensorium / Orientation: alert Motor Exam: muscle tone normal throughout Psych cooperative and affect normal Appearance: disheveled Attitude: calm Activity / Motor Behavior: appropriate eye contact Speech: normal speech Mood & Affect: depressed Thought Process: normal thought process Thought Content: suicidality, No homicidality, No delusion(s) and No hallucination(s) Memory / Cognition: memory grossly intact Insight: fair Judgement: fair Skin Skin Narrative: Chronic wound with granulation tissue over it on the right lateral proximal foot. No drainage appreciated. No surrounding cellulitic/erythematous changes. MDM MDM MDM Narrative Medical decision making narrative: Patient evaluated for concern of worsening depression with suicidal thoughts and a plan of jumping off the balcony of her building. Patient peers nontoxic no acute distress. She is cooperative in the emergency room. I discussed with counselor at the counseling center who relayed their concerns. Will obtain pink slip. They are not able to change her room at her facility to ensure that she does not have access to a balcony and safely contract for safety. Will medically clear the patient. Patient will need placement at a facility that has dialysis capabilities. She does not require emergent dialysis at this time. On repeat evaluation she is complaining of increased pain in her left lower extremity which is chronic for her associate with restless leg. Is given her baseline gabapentin and diazepam for this. Patient is medically cleared. Patient is given her normal medications in the emergency room. I am waiting on placement at this time. P slip is filed. Patient does become very agitated and tearful. Is given IM Haldol. Lab Data Attestation: I reviewed the patient's lab results. Labs: Laboratory Results - last 24 hr 05/28/25 05/28/25 05/28/25 18:07 18:20 22:36 WBC 4.5 RBC 3.01 L Hgb 9.3 L Hct 29.3 L MCV 97.3 MCH 30.9 MCHC 31.7 L RDW Std Deviation 55.1 H RDW Coeff of Fior 15.6 H Plt Count 181 MPV 10.6 Immature Gran % (Auto) 0.200 Neut % (Auto) 67.1 Lymph % (Auto) 15.9 L [place] % (Auto) 13.0 H Eos % (Auto) 2.9 Baso % (Auto) 0.9 Absolute Neuts (auto) 3.0 Absolute Lymphs (auto) 0.71 L Nucleated RBC % 0 Sodium 135 Potassium 5.8 H Chloride 95 L Carbon Dioxide 24.6 Anion Gap 15 BUN 54 H Creatinine 5.84 H Estim Creat Clear Calc 10.63 L Est GFR (MDRD) Non-Af 8 L BUN/Creatinine Ratio 9.3 L Glucose 178 H Calcium 8.1 Total Bilirubin 0.39 AST 20 ALT 19 Alkaline Phosphatase 280 H Total Protein 7.2 Albumin 4.0 Globulin 3.1 Albumin/Globulin Ratio 1.3 Urine Color Yellow Urine Clarity Clear Urine pH 8.0 Ur Specific [place] 1.010 Urine Protein 500 H Urine Glucose (UA) 100 H Urine Ketones Negative Urine Occult Blood 10 H Urine Nitrite Negative Urine Bilirubin Negative Urine Urobilinogen Normal Ur Leukocyte Esterase Negative Urine RBC 0-5 SEEN Urine WBC 0-5 SEEN Ur Squamous Epith Cells 10-25 SEEN Urine Bacteria 1+ Urine Mucus 0 SEEN Urine Opiates Screen NEGATIVE U Buprenorphine Qual NEGATIVE Ur Oxycodone Screen NEGATIVE Urine Methadone Screen NEGATIVE Urine Fentanyl Screen NEGATIVE Ur Barbiturates Screen NEGATIVE Ur Phencyclidine Scrn NEGATIVE Ur Amphetamines Screen NEGATIVE U Benzodiazepines Scrn PRESUMPTIVE POSITIVE Urine Cocaine Screen NEGATIVE U Cannabinoids Screen NEGATIVE Ethyl Alcohol < 10.1 POC Glucose 125 H Rhythm Strip Rhythm Strip: Sinus Rhythm Rate: 79 Ectopy: None EKG Initial EKG: Attestation: I personally reviewed and interpreted this EKG as follows: Interpretation: Sinus Rhythm Comments: Normal sinus rhythm rate of 79 bpm Normal axis with normal intervals Normal ST segments Management Discussion w/another healthcare provider: Behavioral health Discharge Plan Triage Chief Complaint: Suicidal ED Provider: Maria Eugenia Ann Dx/Rx/DC Orders Clinical Impression: Depression with suicidal ideation, ESRD (end stage renal disease) on dialysis, Chronic pain Prescriptions: No Action levetiracetam 500 mg tablet 250 mg PO QHS Rx Instructions: -- 500mg levetiracetam 500 mg tablet 500 mg PO BID ondansetron HCl 4 mg tablet 4 mg PO Q8H paroxetine HCl 20 mg tablet 30 mg PO QHS Patient Comments: TAKE 1 TABLET BY MOUTH EVERY DAY IN THE EVENING pantoprazole 40 mg tablet,delayed release (DR/EC) 40 mg PO BIDCM carvedilol 25 mg tablet 12.5 mg PO QHS acetaminophen 325 mg Tablet 650 mg PO Q6H PRN (Reason: fever or pain) insulin lispro [Humalog KwikPen Insulin] 100 unit/mL Insulin Pen See Protocol subcut TIDAC Protocol: 4. Sliding Scale Insulin High-Med Dosing Condition: 150-199 mg/dl = 2 units Condition: 200-259 mg/dl = 4 units Condition: 260-324 mg/dl = 6 units Condition: 325-374 mg/dl = 8 units Condition: 375-409 mg/dl = 10 units Condition: 410-449 mg/dl = 11 units Condition: Greater than 449 call physician Protocol Text: Suggested for: - Patients on Total Daily Insulin Dose of 56-80 units - Patient who are known to be insulin resistant or septic HIGH MEDIUM DOSING ALGORITHM jeff Chris-BJessicabif-S.therm 175 mg Capsule 1 cap PO 4X/DAY Qty: 0 0RF hydralazine 100 mg tablet 100 mg PO BID diazepam [Valium] 5 mg tablet 5 mg PO QHS levothyroxine 25 mcg tablet 25 mcg PO DAILY Patient Comments: TAKE 1 TABLET BY MOUTH EVERY DAY BEFORE BREAKFAST aspirin 81 mg capsule 81 mg PO DAILY Qty: 30 1RF melatonin 5 mg capsule 10 mg PO QHS carvedilol [Coreg] 12.5 mg tablet 12.5 mg PO SUTUTHSA Rx Instructions: must administer with a meal/food DO NOT ADMINISTER BEFORE DIALYSIS hydralazine 100 mg tablet 100 mg PO SUTUTHSA sucralfate 1 gram Tablet 1 g PO ACHS acetaminophen 500 mg capsule 1,000 mg PO QHS clobetasol-propionate 1 applic topical CONT PRN (Reason: rash) insulin lispro [Humalog KwikPen Insulin] 100 unit/mL insulin pen 5 unit subcut ACHS methadone 5 mg tablet 2.5 mg PO BID 30 Days Qty: 30 0RF gabapentin 300 mg capsule 300 mg PO TID 30 Days Qty: 90 0RF Primary Care Provider: Pat Huhges SIMULATION ANALYST Referrals: Pat Hughes SIMULATION ANALYST, SIMULATION ANALYST-C [Primary Care Provider] - Print Language: Armenian
[2025-05-28 18:36] LABS: Hematocrit 29.3 % (37-47); Hemoglobin 9.3 g/dL (12.0-15.0); Immature Granulocytes Count 0.010 X10^3/uL (0.0-0.0); Mean Corp Hgb Conc 31.7 g/dL (32-36); Mean Corpuscular Volume 97.3 fL (81-99); Mean Platelet Vol. 10.6 fl (6.2-12.0); NRBC Flagged by Analyzer 0 % (0-5); Platelet Count 181 K/mm3 (150-450); RBC Distribution Width CV 15.6 % (11.6-14.6); RBC Distribution Width SD 55.1 fl (35.1-43.9); Red Blood Count 3.01 M/mm3 (4.2-5.4); White Blood Count 4.5 K/mm3 (4.4-11.0)
[2025-05-28 18:42] LABS: Barbiturate Urine NEGATIVE (< 200 ng/mL); Benzodiazepine Urine PRESUMPTIVE POSITIVE (< 200 ng/mL); PCP Urine NEGATIVE (< 25 ng/mL); THC Urine NEGATIVE (< 50 ng/mL)
[2025-05-28 18:43] LABS: AST(SGOT) 20 U/L (<=31); Alanine Aminotransfer ALT/SGPT 19 U/L (<=34); Albumin, Serum 4.0 g/dL (3.5-5.0); Alkaline Phosphatase 280 U/L (35-104); Anion Gap 15 (5-15); BUN 54 mg/dL (4-19); BUN/Creat Ratio 9.3 RATIO (10-20); Calcium,Total 8.1 mg/dL (7.6-11.0); Carbon Dioxide 24.6 mmol/L (21.0-32.0); Chloride 95 mmol/L (98-108); Estimated Creatinine Clearance 10.63 ml/min (50-250); Globulin 3.1 g/dL (2.2-4.2); Glucose 178 mg/dL (70-99); Potassium 5.8 mmol/L (3.3-5.1)
[2025-05-28 18:56] VITALS: BP 168/88; PULSE 81; RESP 20; TEMP 36.6; O2SAT 91
[2025-05-28 19:00] VITALS: BP 168/88; PULSE 86; RESP 18; O2SAT 92
[2025-05-28 19:33] LABS: Alcohol, Blood (Medical)-Serum < 10.1 mg/dL (<=10.0)
[2025-05-28 20:00] VITALS: BP 145/73; PULSE 82; RESP 18; O2SAT 100
[2025-05-28 21:00] VITALS: BP 153/76; PULSE 81; RESP 18; TEMP 36.8; O2SAT 100
[2025-05-28] MEDS: MELATONIN 10 MG TABLET PO (22:37)
[2025-05-28 23:38] LABS: Mucous, Urine 0 SEEN /hpf (<or=2+)
[2025-05-28 23:40] LABS: Glucose, Dipstick 100 mg/dl (Normal); Ketone-Dipstick Negative (Negative); Leukocyte Esterase-Dipstick Negative /ul (Negative); Nitrite-Dipstick Negative (Negative); Occult Blood-Urine 10 /ul (Negative); Protein-Dipstick 500 mg/dl (Negative); Specific Gravity, Urine 1.010 (1.002-1.030); Urine Bilirubin Dipstick Negative (Negative)
[2025-05-29] VITALS (30 sets, daily range): BP systolic 124–174; BP diastolic 55–88; PULSE 60–75; RESP 14–19; TEMP 36.3–36.9; O2SAT 86–100; BMI 29.3; BMI 27.1
[2025-05-29 00:01] LABS: Color, Urine Yellow (Yellow)
[2025-05-29 00:04] LABS: Red Blood Cells-Urine 0-5 SEEN /hpf (0-5); Squamous Epithelial Cells - UA 10-25 SEEN /hpf (5-10)
--- NOTE | 2025-05-29 02:10 | PCM.HP.STD ---
HPI - General General Date of Admission: 05/29/25 Date of Service: 05/29/25 Chief Complaint: Suicidal ideation. HPI Narrative The patient is a 59 y/o F w/ PMHx: Seizure disorder, Anxiety and Depression, Diabetes mellitus type II with charcot foot and chronic polyneuropathy w/ Hx Diabetic foot ulcers s/p BL LE foot surgeries with Chronic Diabetic BL LE Wounds, HTN, HLD, Chronic anemia/AOCD, Hx TIA, CAD s/p PCI and Ischemic cardiomyopathy, ESRD on HD MWF, RLS who presents to the [facility] ED initially on 05/28/25 from her residence with significant worsening depression and suicidal ideation reporting a plan to jump off her fifth floor balcony noting extreme hopelessness sleeping only 2 hours at night with ongoing persistent chronic pain on methadone and Robaxin recently in conflict reportedly with her family brought initially to the ED by counseling center for psychiatric placement however despite attempts to place patient she has been declined and still no placement acceptance obtained with last dialysis Tuesday with ED physician requesting admission for HD consideration and planned upcoming repeat crisis evaluation at the 24 hours sathish (5 pm 05/29/25) to potentially contract for safety per crisis report. Workup in the ED included initially T98, heart rate 77, BP 179/79, respiratory rate 18, 93% on room air with most recent repeat vitals T98.3, heart rate 64, BP 124/55, respiratory rate 14, 95% room air, CBC with WC 4.5, hemoglobin 9.3, MCV 97.3, platelet 181 with lymphopenia, CMP with potassium 5.8, chloride 95, BUN/canaille 54/5.84, GFR 8, glucose 178, alk phos 280, urinalysis not marked appearing, UDS with presumptive benzos, ethyl alcohol less than 10.1. In the ED patient administered her home medications including Coreg, Valium, gabapentin, paroxetine, methadone, melatonin, levothyroxine, hydralazine, Keppra in addition to insulin sliding scale in addition to Haldol 2 mg IM x 1 when she became agitated and anxious. Crisis evaluation performed and placement attempted however patient placement declined as unfortunately she is limited given her dialysis status and from notes from ED physician unfortunately decline potentially secondary to her chronic pain syndrome. Given patient will need dialysis today 05/29/2025 ED/supervising nurse request for admission with plan for continued evaluation for placement versus contract for safety although given patient living situation ideally would need to be altered. [facility] Medical History History of stress test History of echocardiogram History of transesophageal echocardiography (HONG) History of TIA (transient ischemic attack) History of myocardial infarction Diabetes mellitus type 2 with complications Non-pressure chronic ulcer of ankle with fat layer exposed Secondary hyperparathyroidism Non-pressure chronic ulcer of right ankle with necrosis of muscle Non-pressure chronic ulcer of left ankle with necrosis of muscle Adverse effect of synthetic cannabinoids, initial encounter Avery coma scale score 13-15, at arrival to emergency department Acute alteration in mental status Short Achilles tendon (acquired), left ankle Short Achilles tendon (acquired), right ankle Acquired cavovarus deformity of left foot Acquired cavovarus deformity of right foot Type 2 diabetes mellitus with diabetic polyneuropathy Adult failure to thrive ESRD (end stage renal disease) on dialysis Drowsiness Mental status, decreased Carotid artery stenosis MSSA bacteremia ESRD on hemodialysis Osteomyelitis Anemia in chronic illness Type 2 diabetes mellitus Foot osteomyelitis, left Chronic renal disease, stage 4, severely decreased glomerular filtration rate (GFR) between 15-29 mL/min/1.73 square meter Acute on chronic anemia Chronic ulcer of right foot with necrosis of bone Chronic kidney disease, stage 4 (severe) Diabetes mellitus with diabetic polyneuropathy Diabetic foot ulcers Chronic kidney disease, stage 3b Charcot's joint, right ankle and foot Charcot's joint, left ankle and foot Cellulitis Acute lumbar radiculopathy Essential hypertension Adult failure to thrive COVID-19 (08/28/21) Chronic ulcer of right leg with fat layer exposed Ulcer of left foot with fat layer exposed Chronic ulcer of right foot with fat layer exposed Hyperparathyroidism, secondary renal Iron deficiency anemia Bilateral edema of lower extremity Chronic foot pain Non-pressure chronic 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 layer exposed Debility Charcot's joint of right foot Diabetes Non-smoker Myocardial infarct Hypertension TIA (transient ischemic attack) Amputation foot, bilat Non-pressure chronic ulcer of other part of left foot with fat layer exposed 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 Ulcer of left foot with necrosis of muscle Ulcer of left foot with muscle involvement without evidence of necrosis Anxiety and depression Diabetic infection of left foot Delayed wound healing Non-compliance Diabetic polyneuropathy Ischemic cardiomyopathy Obesity (BMI 30.0-34.9) Acquired varus deformity of left foot Acquired varus deformity of right foot Atherosclerosis of [place] coronary artery of [place] heart without angina pectoris Hemoglobin A1c greater than 9.0% NSTEMI (non-ST elevated myocardial infarction) (09/20/18) GERD (gastroesophageal reflux disease) HLD (hyperlipidemia) Back pain, chronic RLS (restless legs syndrome) Home Medications ?Medication ?Instructions ?Recorded ?Last Taken ?Type paroxetine HCl 20 mg tablet 30 mg PO QHS DEPRESSION 07/07/21 04/07/22 History pantoprazole 40 mg tablet,delayed 40 mg PO BIDCM GERD 07/19/22 Unknown History release levothyroxine 25 mcg tablet 25 mcg PO DAILY thyroid 12/16/23 Unknown History aspirin 81 mg capsule 81 mg PO DAILY blood thinner #30 12/26/23 Unknown Rx caps acetaminophen 325 mg tablet 650 mg PO Q6H PRN fever or pain 07/09/24 Unknown History insulin lispro 100 unit/mL See Protocol subcut TIDAC blood 09/13/24 Unknown History subcutaneous pen (Humalog KwikPen sugar (U-100) Insulin) L.acidophil,salivari-Bifido 1 cap PO 4X/DAY #0 caps 09/21/24 Unknown Rx bifidum-Strep thermoph 175 mg capsule carvedilol 25 mg tablet 12.5 mg PO QHS blood pressure 12/06/24 Unknown History levetiracetam 500 mg tablet 250 mg PO QHS 12/06/24 Unknown History levetiracetam 500 mg tablet 500 mg PO BID 12/06/24 Unknown History ondansetron HCl 4 mg tablet 4 mg PO Q8H 02/28/25 Unknown History carvedilol 12.5 mg tablet (Coreg) 12.5 mg PO SUTUTHSA 03/18/25 Unknown History hydralazine 100 mg tablet 100 mg PO SUTUTHSA 03/18/25 Unknown History melatonin 5 mg capsule 10 mg PO QHS 03/18/25 Unknown History sucralfate 1 gram tablet 1 g PO ACHS indigestion 03/18/25 Unknown History acetaminophen 500 mg capsule 1,000 mg PO QHS 04/11/25 Unknown History clobetasol-propionate 1 applic topical CONT PRN rash 04/11/25 Unknown History insulin lispro 100 unit/mL 5 unit subcut ACHS 04/11/25 Unknown History subcutaneous pen (Humalog KwikPen (U-100) Insulin) methadone 5 mg tablet 2.5 mg (1/2 x 5 mg) PO BID 30 days 04/12/25 Unknown Rx #30 tabs gabapentin 300 mg capsule 300 mg PO TID 30 days #90 caps 05/02/25 Unknown Rx diazepam 5 mg tablet (Valium) 5 mg PO QHS muscle spasm 05/28/25 Unknown History hydralazine 100 mg tablet 100 mg PO BID 05/28/25 Unknown History Allergy/AdvReac Type Severity Reaction Status Date / Time fentanyl Allergy Other Verified 05/28/25 17:59 Penicillins Allergy swelling Verified 05/28/25 17:59 in throat vancomycin Allergy Itching Verified 05/28/25 17:59 metronidazole AdvReac Nausea Verified 05/28/25 17:59 Family History Mother Diabetes CVA (cerebral vascular accident) Brother CAD (coronary artery disease) CABG X 3 Cancer testicular Diabetes Brother CAD (coronary artery disease) CABG X3 Diabetes Brother CAD (coronary artery disease) Stents Diabetes Sister CAD (coronary artery disease) CABG x 3 CVA (cerebral vascular accident) Diabetes Surgical History History of cardiac catheterization History of History of foot surgery History of bilateral carpal tunnel release History of rotator cuff surgery History of coronary artery stent placement (12/31/20) Social History household members: none number of children: 2 current occupational status: disabled Smoking Status: Never smoker alcohol intake: never substance use type: does not use caffeine: Yes Type: carbonated beverages Number of servings: 2 ROS ROS Narrative Recent sedation regimen in the ED, will awaken but not markedly coherent or following commands. Review of Systems ROS Unobtainable: due to encephalopathy Vital Signs Vital Signs Vital Signs: 05/28/25 17:50 05/28/25 18:56 05/28/25 19:00 Temperature 98.0 F 97.9 F Temperature Source Oral Oral Pulse Rate 77 81 86 Respiratory Rate 18 20 H 18 Blood Pressure 179/79 H 168/88 H 168/88 H Blood Pressure Mean 112 114 114 Pulse Ox 93 91 92 Oxygen Delivery Method Room Air Room Air Room Air 05/28/25 20:00 05/28/25 21:00 05/29/25 00:11 Temperature 98.2 F 98.3 F Temperature Source Oral Temporal Pulse Rate 82 81 64 Respiratory Rate 18 18 14 Blood Pressure 145/73 H 153/76 H 124/55 H Blood Pressure Mean 97 101 78 Pulse Ox 100 100 95 Oxygen Delivery Method Room Air Room Air Room Air Weight Weight: 169 lb 5.04 oz Body Mass Index (BMI) 28.1 Physical Exam Narrative Physical Examination: General: Awakens to stimuli but very fatigued, sedated regimen in the ED, irritable when awoken, falls back asleep quickly, not able to answer orientation questions or following commands, laying in the ED bed, snoring, no acute distress. Skin: Normal color, normal turgor, no icterus, no cyanosis except occasional stage ecchymoses, abrasions, chronic bilateral lower extremity diabetic foot ulceration/wounds. HEENT: AT/NC, EOM difficult to assess given not extremely interactive/recent sedated medication irritable when awoken, PERRLA, dry MM, no carotid bruits or JVD noted. Lungs: Diminished, greater bases, poor effort, no evidence of distress, no rales, ronchi or wheezing. Heart: Regular rate and rhythm; no gallop, rub audible. Abdomen: Soft, obese, no grimacing with palpation, no obvious distention, distant BS, no appreciated HSM. Extremities: No cyanosis, no clubbing, no marked distal pitting edema noted, bilateral lower extremity chronic diabetic foot ulcer/wounds. Neurological: Awakens to stimuli but very fatigued, sedated regimen in the ED, irritable when awoken, falls back asleep quickly, not able to answer orientation questions or following commands, laying in the ED bed, snoring, no acute distress, cognitive function not baseline intact; pupils equally reactive to light and accommodation, moving extremities spontaneously but as noted recent sedating regimen, lethargic, irritable when awoken, no obvious focal deficits, strength severely globally decreased. Psychiatric: Affect appears lethargic, recent sedated regimen, on suicide precautions for significant depression with suicidal ideations, also noted underlying anxiety history. Results Lab / Micro Data 05/28/25 18:20 05/28/25 18:20 Labs: Laboratory Results - last 24 hr 05/28/25 18:07: Urine Color Yellow, Urine Clarity Clear, Urine pH 8.0, Ur Specific [place] 1.010, Urine Protein 500 H, Urine Glucose (UA) 100 H, Urine Ketones Negative, Urine Occult Blood 10 H, Urine Nitrite Negative, Urine Bilirubin Negative, Urine Urobilinogen Normal, Ur Leukocyte Esterase Negative, Urine RBC 0-5 SEEN, Urine WBC 0-5 SEEN, Ur Squamous Epith Cells 10-25 SEEN, Urine Bacteria 1+, Urine Mucus 0 SEEN, Urine Opiates Screen NEGATIVE, U Buprenorphine Qual NEGATIVE, Ur Oxycodone Screen NEGATIVE, Urine Methadone Screen NEGATIVE, Urine Fentanyl Screen NEGATIVE, Ur Barbiturates Screen NEGATIVE, Ur Phencyclidine Scrn NEGATIVE, Ur Amphetamines Screen NEGATIVE, U Benzodiazepines Scrn PRESUMPTIVE POSITIVE, Urine Cocaine Screen NEGATIVE, U Cannabinoids Screen NEGATIVE 05/28/25 18:20: WBC 4.5, RBC 3.01 L, Hgb 9.3 L, Hct 29.3 L, MCV 97.3, MCH 30.9, MCHC 31.7 L, RDW Std Deviation 55.1 H, RDW Coeff of Fior 15.6 H, Plt Count 181, MPV 10.6, Immature Gran % (Auto) 0.200, Neut % (Auto) 67.1, Lymph % (Auto) 15.9 L, [place] % (Auto) 13.0 H, Eos % (Auto) 2.9, Baso % (Auto) 0.9, Absolute Neuts (auto) 3.0, Absolute Lymphs (auto) 0.71 L, Nucleated RBC % 0, Sodium 135, Potassium 5.8 H, Chloride 95 L, Carbon Dioxide 24.6, Anion Gap 15, BUN 54 H, Creatinine 5.84 H, Estim Creat Clear Calc 10.63 L, Est GFR (MDRD) Non-Af 8 L, BUN/Creatinine Ratio 9.3 L, Glucose 178 H, Calcium 8.1, Total Bilirubin 0.39, AST 20, ALT 19, Alkaline Phosphatase 280 H, Total Protein 7.2, Albumin 4.0, Globulin 3.1, Albumin/Globulin Ratio 1.3, Ethyl Alcohol < 10.1 05/28/25 22:36: POC Glucose 125 H Rhythm Strip Rhythm Strip: Sinus Rhythm Rate: 79 Ectopy: None Assessment & Plan Assessment/Plan (1) Depression with suicidal ideation: PLAN: Plan The patient is a 59 y/o F w/ PMHx: Seizure disorder, Anxiety and Depression, Diabetes mellitus type II with charcot foot and chronic polyneuropathy w/ Hx Diabetic foot ulcers s/p BL LE foot surgeries with Chronic Diabetic BL LE Wounds, HTN, HLD, Chronic anemia/AOCD, Hx TIA, CAD s/p PCI and Ischemic cardiomyopathy, ESRD on HD MWF, RLS who presents to the [facility] ED initially on 05/28/25 from her residence with significant worsening depression and suicidal ideation reporting a plan to jump off her fifth floor balconmaria luz noting extreme hopelessness sleeping only 2 hours at night with ongoing persistent chronic pain on methadone and Robaxin recently in conflict reportedly with her family brought initially to the ED by [facility] however despite attempts to place patient she has been declined and still no placement acceptance obtained with last dialysis Tuesday with ED physician requesting admission for HD consideration and planned upcoming repeat crisis evaluation at the 24 hours sathish (5 pm 05/29/25) to potentially contract for safety per crisis report. #1. Suicidal ideation with underlying anxiety depression, uncontrolled: Will admit to medical surgical floor, maintain on suicide precautions, continue sitter placement, continue ongoing crisis evaluation for consideration of allie with safety versus placement although given living situation would certainly be high risk of return to living on the fifth floor, will continue patient on paroxetine regimen, will continue chronic pain regimen as psychiatrist who declined patient placement had noted concerns for her chronic pain being in etiology but certainly could adjust as needed but currently controlled, will continue HD with planned dialysis today given this is the primary reason for admitting at this time. Case management consulted. #2. ESRD: Patient with ongoing dialysis Tuesday, last dialysis Tuesday, will consult nephrology for ongoing HD needs. #3. History of TIA: Will continue aspirin, not on statin per current list, will continue hypertensive regimen as noted, diabetic regimen with adjustments as noted. #4. CAD/ischemic cardiomyopathy: Status post PCI, will continue aspirin, not on statin per current list, continue Coreg, not on MYLA or/ARB potentially secondary to underlying renal disease. #5. Chronic pain syndrome: Patient's only received her chronic pain regimen in the ED, will continue including low-dose methadone, gabapentin, Valium. #6. Chronic normocytic anemia/anemia of chronic disease: Admission hemoglobin 9.3, MCV 97.3, baseline hemoglobin 8-9, stable, continue to trend. #7. Diabetes mellitus type II with with charcot foot and chronic polyneuropathy w/ Hx Diabetic foot ulcers s/p BL LE foot surgeries with Chronic Diabetic BL LE Wounds: Hold oral home regimen, continue home insulin regimen, ADA diet, accu checks w/ ISS, wound RN consulted, continue home chronic gabapentin regimen. #8. Seizure disorder: Will continue Keppra home regimen. #9. Hypertension: Continue home regimen including Coreg, hydralazine, PRN hydralazine. #10. Hyperlipidemia: Per current list not on regimen, no allergy listed, defer to outpatient. #11. Hypothyroidism: Will continue patient home levothyroxine regimen. #12. GERD: Will continue patient on PPI and sucralfate home regimen. #13. DVT prophylaxis: Heparin. #14. CODE STATUS: Full Code. Charges/Coding Visit Charges Inpatient E&M: 57127 Init Hosp L2
[2025-05-29 03:05] LABS: Magnesium 2.0 mg/dL (1.5-2.2)
--- NOTE | 2025-05-29 03:44 | NURSING ---
Pt denies feeling suicidal at this time
[2025-05-29 06:42] LABS: Hematocrit 27.0 % (37-47); Hemoglobin 8.5 g/dL (12.0-15.0); Immature Granulocytes Count 0.020 X10^3/uL (0.0-0.0); Mean Corp Hgb Conc 31.5 g/dL (32-36); Mean Corpuscular Volume 96.4 fL (81-99); Mean Platelet Vol. 10.6 fl (6.2-12.0); NRBC Flagged by Analyzer 0 % (0-5); Platelet Count 173 K/mm3 (150-450); RBC Distribution Width CV 15.4 % (11.6-14.6); RBC Distribution Width SD 54.9 fl (35.1-43.9); Red Blood Count 2.80 M/mm3 (4.2-5.4); White Blood Count 4.2 K/mm3 (4.4-11.0)
[2025-05-29 07:10] LABS: AST(SGOT) 25 U/L (<=31); Alanine Aminotransfer ALT/SGPT 20 U/L (<=34); Albumin, Serum 3.8 g/dL (3.5-5.0); Alkaline Phosphatase 247 U/L (35-104); Anion Gap 15 (5-15); BUN 63 mg/dL (4-19); BUN/Creat Ratio 10.1 RATIO (10-20); Calcium,Total 7.9 mg/dL (7.6-11.0); Carbon Dioxide 24.5 mmol/L (21.0-32.0); Chloride 95 mmol/L (98-108); Estimated Creatinine Clearance 10.18 ml/min (50-250); Globulin 2.7 g/dL (2.2-4.2); Glucose 99 mg/dL (70-99); Potassium 5.5 mmol/L (3.3-5.1)
--- NOTE | 2025-05-29 07:19 | NURSING ---
Jeanine from [facility] called with an update that they are looking into facilities for referrals that is [facility] and [facility]. She said she will call if she has more updates.
--- NOTE | 2025-05-29 07:36 | PN.HOSP_ITS ---
Reason for Visit Chief Complaint: Suicidal ideation. Subjective Subjective Patient is a 59-year-old lady with multiple comorbidities including diabetes mellitus type 2, end-stage renal disease on hemodialysis brought to the emergency department after suicidal ideation. She had apparently told the staff at apartment that she wanted to jump from her fifth floor balcony. Objective Data Objective Data Vital Signs: Vital Signs Temp Pulse Resp BP Pulse Ox O2 Del Method 97.3 F L 70 16 140/77 H 92 Room Air 05/29/25 05:32 05/29/25 05:32 05/29/25 05:32 05/29/25 05:32 05/29/25 05:32 05/29/25 05:32 Oxygen Delivery Method Room Air Weight: 80.1 kg Body Mass Index (BMI) 29.3 Intake & Output: Intake and Output for Last 24 Hours 05/27/25 05/28/25 05/29/25 23:59 23:59 23:59 Intake Total 200 / 200 Balance 200 / 200 Lab / Micro Data 05/29/25 05:30 05/29/25 05:30 Labs: Laboratory Results - last 24 hr 05/28/25 18:07: Urine Color Yellow, Urine Clarity Clear, Urine pH 8.0, Ur Specific [place] 1.010, Urine Protein 500 H, Urine Glucose (UA) 100 H, Urine Ketones Negative, Urine Occult Blood 10 H, Urine Nitrite Negative, Urine Bilirubin Negative, Urine Urobilinogen Normal, Ur Leukocyte Esterase Negative, Urine RBC 0-5 SEEN, Urine WBC 0-5 SEEN, Ur Squamous Epith Cells 10-25 SEEN, Urine Bacteria 1+, Urine Mucus 0 SEEN, Urine Opiates Screen NEGATIVE, U Buprenorphine Qual NEGATIVE, Ur Oxycodone Screen NEGATIVE, Urine Methadone Screen NEGATIVE, Urine Fentanyl Screen NEGATIVE, Ur Barbiturates Screen NEGATIVE, Ur Phencyclidine Scrn NEGATIVE, Ur Amphetamines Screen NEGATIVE, U Benzodiazepines Scrn PRESUMPTIVE POSITIVE, Urine Cocaine Screen NEGATIVE, U Cannabinoids Screen NEGATIVE 05/28/25 18:20: WBC 4.5, RBC 3.01 L, Hgb 9.3 L, Hct 29.3 L, MCV 97.3, MCH 30.9, MCHC 31.7 L, RDW Std Deviation 55.1 H, RDW Coeff of Fior 15.6 H, Plt Count 181, MPV 10.6, Immature Gran % (Auto) 0.200, Neut % (Auto) 67.1, Lymph % (Auto) 15.9 L, [place] % (Auto) 13.0 H, Eos % (Auto) 2.9, Baso % (Auto) 0.9, Absolute Neuts (auto) 3.0, Absolute Lymphs (auto) 0.71 L, Nucleated RBC % 0, Sodium 135, P otassium 5.8 H, Chloride 95 L, Carbon Dioxide 24.6, Anion Gap 15, BUN 54 H, C reatinine 5.84 H, Estim Creat Clear Calc 10.63 L, Est GFR (MDRD) Non-Af 8 L, B UN/Creatinine Ratio 9.3 L, Glucose 178 H, Calcium 8.1, Phosphorus 3.7, Magnesium 2.0, Total Bilirubin 0.39, AST 20, ALT 19, Alkaline Phosphatase 280 H, Total Protein 7.2, Albumin 4.0, Globulin 3.1, Albumin/Globulin Ratio 1.3, Ethyl Alcohol < 10.1 05/28/25 22:36: POC Glucose 125 H 05/29/25 03:30: POC Glucose 117 H 05/29/25 05:30: WBC 4.2 L, RBC 2.80 L, Hgb 8.5 L, Hct 27.0 L, MCV 96.4, MCH 30.4, MCHC 31.5 L, RDW Std Deviation 54.9 H, RDW Coeff of Fior 15.4 H, Plt Count 173, MPV 10.6, Immature Gran % (Auto) 0.500, Neut % (Auto) 67.3, Lymph % (Auto) 17.9 L, [place] % (Auto) 10.7 H, Eos % (Auto) 2.6, Baso % (Auto) 1.0, Absolute Neuts (auto) 2.8, Absolute Lymphs (auto) 0.75 L, Nucleated RBC % 0, Sodium 135, Potassium 5.5 H, Chloride 95 L, Carbon Dioxide 24.5, Anion Gap 15, BUN 63 H, C reatinine 6.22 H, Estim Creat Clear Calc 10.18 L, Est GFR (MDRD) Non-Af 7 L, BUN/Creatinine Ratio 10.1, Glucose 99, Calcium 7.9, Total Bilirubin 0.37, AST 25, ALT 20, Alkaline Phosphatase 247 H, Total Protein 6.4, Albumin 3.8, Globulin 2.7, Albumin/Globulin Ratio 1.4 05/29/25 06:28: POC Glucose 103 Rhythm Strip Rhythm Strip: Sinus Rhythm Rate: 79 Ectopy: None Physical Exam Narrative GENERAL: Patient resting comfortably HEENT: Atraumatic; normocephalic EYES; Anicteric, Normal Conjunctiva NECK; supple, normal thyroid, RESPIRATORY: Diminished to auscultation CARDIOVASCULAR: Regular S1 S2, GI: soft, normoactive bowel sounds, : No Renal angle tenderness; EXTREMITIES: Right lower extremity in surgical dressing, left upper extremity swelling MUSCULOSKELETAL: no muscle wasting NEURO: no lateralizing signs. SKIN: No Rash PSYCH; Flat affect Assessment & Plan Assessment/Plan (1) Depression with suicidal ideation: PLAN: Plan Patient is a 59-year-old lady with multiple comorbidities including diabetes mellitus type 2, end-stage renal disease on hemodialysis brought to the emergency department after suicidal ideation. She had apparently told the staff at apartment that she wanted to jump from her fifth floor balcony. 1. Suicidal ideation in a patient with severe depression and anxiety ? Patient has been admitted to regular nursing floor maintained on suicide precaution with sitter in her room. Consult placed to the crisis center for evaluation 2. End-stage renal disease ? On hemodialysis consult placed to nephrology patient dialysis days on Wednesdays and Fridays 3. Diabetes mellitus type II ?With complications including Charcot foot as well as diabetic foot ulcers.? Patient is on long acting insulin, Accu-Cheks a.c. and at bedtime and covered with sliding scale insulin 4.? CAD; s/p NSTEMI x 2 with stents x 3 in (2017) and (2020) on prn SL NTG with history of ischemic cardiomyopathy; with LVEF ~45% -plan is to continue with guideline directed medical therapy 5.? Dyslipidemia -Patient is on statin therapy, continued at home dose 6.? GERD ? On PPI 7.? Chronic back pain ? Complicating patient's clinical condition. Plan for patient to be referred to pain management as outpatient 8. Hypothyroidism - Patient is on levothyroxine home dose continued 9.? Seizure disorder ? Patient is on Keppra, continued 10.? Anemia - Secondary to chronic disorder monitoring H&H and transfuse if patient becomes symptomatic or hemoglobin falls below? 7 11. Recurrent diabetic foot infection ? Patient has a diabetic foot ulcer which is chronic wound care nurse consulted 12. Left arm swelling ? Patient has a fistula in place ordered ultrasound to rule out thrombosis of her fistula 13. DVT prophylaxis Subcu heparin. Time spent in the patient's overall evaluation,decision-making process, review of diagnostic data, adjustment of management, discussion with other providers, nursing nursing and ancillary staff involved in patient's care documentation, 35 Minutes Charges/Coding Visit Charges Inpatient E&M: 69798 PROLNG IP/OBS E/M EA 15 MIN Multi Select Codes Visit Charges Visit Charges: 98290 PROLNG IP/OBS E/M EA 15 MIN
--- NOTE | 2025-05-29 08:11 | WOUNDNOTE ---
wound photo: right lateral ankle
[2025-05-29] MEDS: PureFlow B 2K Dialysis Soln 1 BAG 6 BAG PF (08:46)
[2025-05-29] MEDS: 0.9% Normal Saline 1,000 ML IV.SOLN. 1000 ML OPERA.SITE (08:46)
--- NOTE | 2025-05-29 09:28 | AVDS_ITS ---
Reason For Study Reason For Study: Left AVF Left Velocities Left Brachiobasilic AVF Inflow, 268.4/87.3 cm/sec Inflow, 985.9 ml/min Prox anastamosis, 508.2/195.6 cm/sec Prox anastamosis, 1202 ml/min Prox graft, 160.5/60.3 cm/sec Prox graft, 740.7 ml/min Mid graft, 107.1/54.2 cm/sec Mid graft, 1019 ml/min Dist graft, 89.7/37.0 cm/sec Dist graft, 768.5 ml/min Outflow, 101.5/54.8 cm/sec Outflow, 932.3 ml/min. Procedure Exam performed portable in patient room. VL/AV Fistula/Dialysis Graft Scan Interpretation Summary Elevated velocities at the proximal anastomosis of the arterio-venous hemodialy sis graft suggest the presence of stenosis. Otherwise, flow rates within the hemodialysis graft appear normal. Ordering Physician: Rodney Yates Referring Physician: Pat Hughes NP Performed By: Stacey Sotomayor RVT
--- NOTE | 2025-05-29 10:50 | CASEMGMT ---
Social Work Pt admitted from [facility]. Pt lives at [facility]. Pt with suicidal ideation with plan to jump off 5th floor apartment [facility]. Crisis met with pt at [facility] and completed suicide assessment. Crisis [facility] until she is able to be placed as [facility] is unable to keep pt safe. LUCRETIA called [facility] and spoke with Jeanine. Jeanine states she has sent several referrals for psychiatric placement. However, due to pt need for dialysis treatment 3 times a week, finding placement is very difficult. Jeanine continues to work on this. Jeanine also states that she plans on calling [facility] to discuss ability to safety plan pt back to [facility] if placement is unable to be secured. LUCRETIA provided Jeanine with SW number and requested SW be updated when next steps have been determined. Nursing updated. ERIN Fallon
[2025-05-29] MEDS: 0.9% Saline Lock 10 ML Syringe IV (12:15)
[2025-05-29] MEDS: Heparin Injection (Vial) 5,000 UNIT/ML VIAL 5000 UNIT SC ×2 (12:32→21:34)
--- NOTE | 2025-05-29 15:11 | CASEMGMT ---
Social Work VM left with Pt Direction Turpentiner Yaneli Adorno ([phone]) and updated on hospital admission. SW to fax dc orders and destination when obtained. ERIN Fallon
--- NOTE | 2025-05-29 15:51 | CASEMGMT ---
Social Work Return call from Erika at Crisis. Placement has not yet been secured. There are still a few referrals out that determination has not been made on. Erika states she has left messages at [facility] with not return calls to discuss safety planning pt back to [facility]. Erika states she will come in tonight and reassess pt. Nursing notified. ERIN Fallon
--- NOTE | 2025-05-29 16:26 | CASEMGMT ---
LOPEZ Met with patient to complete LOPEZ form. LOPEZ form and its content were verbally explained and patient's questions were answered to the best of my ability.? Patient voiced understanding and signed LOPEZ form.? Patient provided a copy of signed LOPEZ form and original placed in patient's chart.? Patient had no further questions. Rekha Moore, Discharge Planning Asst
--- NOTE | 2025-05-29 18:10 | NURSING ---
Erika from Crisis in to speak and reevaluate patient. Erika states that she is better this evening than previously and that she has spoke with fabiana nugent- who is looking into securing current location for possible return. Patient agrees to safety plan at this time, copy received from Erika- will continue to look at returning to facility.
--- NOTE | 2025-05-29 18:36 | PCM.CONS.R ---
Assessment & Plan Assessment/Plan (1) ESRD on dialysis: PLAN: ESRD on hemodialysis. Dialysis arranged as per schedule. Hyperkalemia, dialysis on 2K bath. HPI Consult Data Date of Consult: 05/29/25 HPI Narrative Reason for Consultation: ESRD HPI Narrative: DIONY ROCHA, is a 59 F who presents To the hospital with suicidal ideations. Nephrology on consultation in view of ESRD. ESRD on hemodialysis Tuesday, Tuesday, Tuesday schedule. [facility] Medical History History of stress test History of echocardiogram History of transesophageal echocardiography (HONG) History of TIA (transient ischemic attack) History of myocardial infarction Diabetes mellitus type 2 with complications Non-pressure chronic ulcer of ankle with fat layer exposed Secondary hyperparathyroidism Non-pressure chronic ulcer of right ankle with necrosis of muscle Non-pressure chronic ulcer of left ankle with necrosis of muscle Adverse effect of synthetic cannabinoids, initial encounter [place] coma scale score 13-15, at arrival to emergency department Acute alteration in mental status Short Achilles tendon (acquired), left ankle Short Achilles tendon (acquired), right ankle Acquired cavovarus deformity of left foot Acquired cavovarus deformity of right foot Type 2 diabetes mellitus with diabetic polyneuropathy Adult failure to thrive ESRD (end stage renal disease) on dialysis Drowsiness Mental status, decreased Carotid artery stenosis MSSA bacteremia ESRD on hemodialysis Osteomyelitis Anemia in chronic illness Type 2 diabetes mellitus Foot osteomyelitis, left Chronic renal disease, stage 4, severely decreased glomerular filtration rate (GFR) between 15-29 mL/min/1.73 square meter Acute on chronic anemia Chronic ulcer of right foot with necrosis of bone Chronic kidney disease, stage 4 (severe) Diabetes mellitus with diabetic polyneuropathy Diabetic foot ulcers Chronic kidney disease, stage 3b Charcot's joint, right ankle and foot Charcot's joint, left ankle and foot Cellulitis Acute lumbar radiculopathy Essential hypertension Adult failure to thrive COVID-19 (08/28/21) Chronic ulcer of right leg with fat layer exposed Ulcer of left foot with fat layer exposed Chronic ulcer of right foot with fat layer exposed Hyperparathyroidism, secondary renal Iron deficiency anemia Bilateral edema of lower extremity Chronic foot pain Non-pressure chronic 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 layer exposed Debility Charcot's joint of right foot Diabetes Non-smoker Myocardial infarct Hypertension TIA (transient ischemic attack) Amputation foot, bilat Non-pressure chronic ulcer of other part of left foot with fat layer exposed 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 Ulcer of left foot with necrosis of muscle Ulcer of left foot with muscle involvement without evidence of necrosis Anxiety and depression Diabetic infection of left foot Delayed wound healing Non-compliance Diabetic polyneuropathy Ischemic cardiomyopathy Obesity (BMI 30.0-34.9) Acquired varus deformity of left foot Acquired varus deformity of right foot Atherosclerosis of [place] coronary artery of [place] heart without angina pectoris Hemoglobin A1c greater than 9.0% NSTEMI (non-ST elevated myocardial infarction) (09/20/18) GERD (gastroesophageal reflux disease) HLD (hyperlipidemia) Back pain, chronic RLS (restless legs syndrome) Home Medications ?Medication ?Instructions ?Recorded ?Last Taken ?Type paroxetine HCl 20 mg tablet 30 mg PO QHS DEPRESSION 07/07/21 04/07/22 History pantoprazole 40 mg tablet,delayed 40 mg PO BIDCM GERD 07/19/22 Unknown History release levothyroxine 25 mcg tablet 25 mcg PO DAILY thyroid 12/16/23 Unknown History aspirin 81 mg capsule 81 mg PO DAILY blood thinner #30 12/26/23 Unknown Rx caps acetaminophen 325 mg tablet 650 mg PO Q6H PRN fever or pain 07/09/24 Unknown History insulin lispro 100 unit/mL See Protocol subcut TIDAC blood 09/13/24 Unknown History subcutaneous pen (Humalog KwikPen sugar (U-100) Insulin) L.acidophil,salivari-Bifido 1 cap PO 4X/DAY probiotic #0 caps 09/21/24 Unknown Rx bifidum-Strep thermoph 175 mg capsule carvedilol 25 mg tablet 12.5 mg PO QHS blood pressure 12/06/24 Unknown History levetiracetam 500 mg tablet 250 mg PO QHS seizures 12/06/24 Unknown History levetiracetam 500 mg tablet 500 mg PO BID seizures 12/06/24 Unknown History ondansetron HCl 4 mg tablet 4 mg PO Q8H nausea 02/28/25 Unknown History carvedilol 12.5 mg tablet (Coreg) 12.5 mg PO SUTUTHSA 03/18/25 Unknown History hydralazine 100 mg tablet 100 mg PO SUTUTHSA bp 03/18/25 Unknown History melatonin 5 mg capsule 10 mg PO QHS sleep 03/18/25 Unknown History sucralfate 1 gram tablet 1 g PO ACHS indigestion 03/18/25 Unknown History acetaminophen 500 mg capsule 1,000 mg PO QHS pain 04/11/25 Unknown History clobetasol-propionate 1 applic topical CONT PRN rash 04/11/25 Unknown History insulin lispro 100 unit/mL 5 unit subcut ACHS blood sugar 04/11/25 Unknown History subcutaneous pen (Humalog KwikPen (U-100) Insulin) methadone 5 mg tablet 2.5 mg (1/2 x 5 mg) PO BID pain 30 04/12/25 Unknown Rx days #30 tabs gabapentin 300 mg capsule 300 mg PO TID pain 30 days #90 caps 05/02/25 Unknown Rx diazepam 5 mg tablet (Valium) 5 mg PO QHS muscle spasm 05/28/25 Unknown History hydralazine 100 mg tablet 100 mg PO BID bp 05/28/25 Unknown History Allergy/AdvReac Type Severity Reaction Status Date / Time fentanyl Allergy Other Verified 05/28/25 17:59 Penicillins Allergy swelling Verified 05/28/25 17:59 in throat vancomycin Allergy Itching Verified 05/28/25 17:59 metronidazole AdvReac Nausea Verified 05/28/25 17:59 Family History Mother Diabetes CVA (cerebral vascular accident) Brother CAD (coronary artery disease) CABG X 3 Cancer testicular Diabetes Brother CAD (coronary artery disease) CABG X3 Diabetes Brother CAD (coronary artery disease) Stents Diabetes Sister CAD (coronary artery disease) CABG x 3 CVA (cerebral vascular accident) Diabetes Surgical History History of cardiac catheterization History of History of foot surgery History of bilateral carpal tunnel release History of rotator cuff surgery History of coronary artery stent placement (12/31/20) Social History household members: none number of children: 2 current occupational status: disabled Smoking Status: Never smoker alcohol intake: never substance use type: does not use caffeine: Yes Type: carbonated beverages Number of servings: 2 ROS ROS Narrative negative except above Physical Exam Narrative Alert awake oriented x 3 no obvious distress no pallor no icterus no JVD s1s2 no murmurs lungs clear abdomen soft no organomegaly no edema Lab / Micro Data 05/29/25 05:30 05/29/25 05:30 Labs: Laboratory Results - last 24 hr 05/28/25 18:07: Urine Color Yellow, Urine Clarity Clear, Urine pH 8.0, Ur Specific [place] 1.010, Urine Protein 500 H, Urine Glucose (UA) 100 H, Urine Ketones Negative, Urine Occult Blood 10 H, Urine Nitrite Negative, Urine Bilirubin Negative, Urine Urobilinogen Normal, Ur Leukocyte Esterase Negative, Urine RBC 0-5 SEEN, Urine WBC 0-5 SEEN, Ur Squamous Epith Cells 10-25 SEEN, Urine Bacteria 1+, Urine Mucus 0 SEEN, Urine Opiates Screen NEGATIVE, U Buprenorphine Qual NEGATIVE, Ur Oxycodone Screen NEGATIVE, Urine Methadone Screen NEGATIVE, Urine Fentanyl Screen NEGATIVE, Ur Barbiturates Screen NEGATIVE, Ur Phencyclidine Scrn NEGATIVE, Ur Amphetamines Screen NEGATIVE, U Benzodiazepines Scrn PRESUMPTIVE POSITIVE, Urine Cocaine Screen NEGATIVE, U Cannabinoids Screen NEGATIVE 05/28/25 18:20: WBC 4.5, RBC 3.01 L, Hgb 9.3 L, Hct 29.3 L, MCV 97.3, MCH 30.9, MCHC 31.7 L, RDW Std Deviation 55.1 H, RDW Coeff of Fior 15.6 H, Plt Count 181, MPV 10.6, Immature Gran % (Auto) 0.200, Neut % (Auto) 67.1, Lymph % (Auto) 15.9 L, Wallace % (Auto) 13.0 H, Eos % (Auto) 2.9, Baso % (Auto) 0.9, Absolute Neuts (auto) 3.0, Absolute Lymphs (auto) 0.71 L, Nucleated RBC % 0, Sodium 135, Potassium 5.8 H, Chloride 95 L, Carbon Dioxide 24.6, Anion Gap 15, BUN 54 H, Creatinine 5.84 H, Estim Creat Clear Calc 10.63 L, Est GFR (MDRD) Non-Af 8 L, BUN/Creatinine Ratio 9.3 L, Glucose 178 H, Calcium 8.1, Phosphorus 3.7, Magnesium 2.0, Total Bilirubin 0.39, AST 20, ALT 19, Alkaline Phosphatase 280 H, Total Protein 7.2, Albumin 4.0, Globulin 3.1, Albumin/Globulin Ratio 1.3, Ethyl Alcohol < 10.1 05/28/25 22:36: POC Glucose 125 H 05/29/25 03:30: POC Glucose 117 H 05/29/25 05:30: WBC 4.2 L, RBC 2.80 L, Hgb 8.5 L, Hct 27.0 L, MCV 96.4, MCH 30.4, MCHC 31.5 L, RDW Std Deviation 54.9 H, RDW Coeff of Fior 15.4 H, Plt Count 173, MPV 10.6, Immature Gran % (Auto) 0.500, Neut % (Auto) 67.3, Lymph % (Auto) 17.9 L, Wallace % (Auto) 10.7 H, Eos % (Auto) 2.6, Baso % (Auto) 1.0, Absolute Neuts (auto) 2.8, Absolute Lymphs (auto) 0.75 L, Nucleated RBC % 0, Sodium 135, Potassium 5.5 H, Chloride 95 L, Carbon Dioxide 24.5, Anion Gap 15, BUN 63 H, Creatinine 6.22 H, Estim Creat Clear Calc 10.18 L, Est GFR (MDRD) Non-Af 7 L, BUN/Creatinine Ratio 10.1, Glucose 99, Calcium 7.9, Total Bilirubin 0.37, AST 25, ALT 20, Alkaline Phosphatase 247 H, Total Protein 6.4, Albumin 3.8, Globulin 2.7, Albumin/Globulin Ratio 1.4 05/29/25 06:28: POC Glucose 103 05/29/25 11:20: POC Glucose 113 H 05/29/25 16:38: POC Glucose 174 H Rhythm Strip Rhythm Strip: Sinus Rhythm Rate: 79 Ectopy: None
[2025-05-29] MEDS: MELATONIN 10 MG TABLET PO (21:34)
[2025-05-30 03:12] VITALS: BP 143/66; PULSE 79; RESP 18; TEMP 36.8; O2SAT 94
[2025-05-30 04:18] VITALS: BMI 27.1
[2025-05-30 05:58] LABS: Hematocrit 32.5 % (37-47); Hemoglobin 9.8 g/dL (12.0-15.0); Immature Granulocytes Count 0.010 X10^3/uL (0.0-0.0); Mean Corp Hgb Conc 30.2 g/dL (32-36); Mean Corpuscular Volume 100.9 fL (81-99); Mean Platelet Vol. 10.8 fl (6.2-12.0); NRBC Flagged by Analyzer 0 % (0-5); Platelet Count 213 K/mm3 (150-450); RBC Distribution Width CV 15.6 % (11.6-14.6); RBC Distribution Width SD 57.4 fl (35.1-43.9); Red Blood Count 3.22 M/mm3 (4.2-5.4); White Blood Count 4.3 K/mm3 (4.4-11.0)
[2025-05-30 06:18] LABS: Anion Gap 14 (5-15); BUN 46 mg/dL (4-19); BUN/Creat Ratio 9.5 RATIO (10-20); Calcium,Total 8.3 mg/dL (7.6-11.0); Carbon Dioxide 24.8 mmol/L (21.0-32.0); Chloride 99 mmol/L (98-108); Estimated Creatinine Clearance 12.48 ml/min (50-250); Glucose 104 mg/dL (70-99); Magnesium 2.2 mg/dL (1.5-2.2); Potassium 5.5 mmol/L (3.3-5.1)
[2025-05-30 06:45] VITALS: O2SAT 95
[2025-05-30 08:01] VITALS: BP 145/67; PULSE 66; RESP 18; TEMP 36.4; O2SAT 96
--- NOTE | 2025-05-30 09:14 | DS.PCM_ITS ---
Providers Date of Admission: 05/29/25 Date of Discharge: 05/30/25 Primary Care Physician: Pat Hughes, YAMILKA-Matt Consultations 05/29/25 03:01 Consult: Nephrology Routine Consulting Provider: Angel Joel Reason for Consult: ESRD on HD EMERGENT Consult: No MD Notified: Yes Date Notified: 05/29/25 Time Notified: 06:52 Method of Notification: Answering Service Consult: Onc/Wound/coal dumping equipment operator Routine Comment: Reason for Consult:: Diabetic chronic foot wounds Reason For Visit: SUICIDAL IDEATION Diagnosis Discharge Diagnosis (1) ESRD on dialysis: Status: Acute Code(s): N18.6 - End stage renal disease; Z99.2 - Dependence on renal dialysis Plan Patient is a 59-year-old lady with multiple comorbidities including diabetes mellitus type 2, end-stage renal disease on hemodialysis brought to the emergency department after suicidal ideation. She had apparently told the staff at [facility] that she wanted to jump from her fifth floor balcony. 1. Suicidal ideation in a patient with severe depression and anxiety ? Patient has been admitted to regular nursing floor maintained on suicide precaution with sitter in her room. Consult placed to the crisis center for evaluation ? Patient was seen in consultation by the crisis team safety plan was written for the patient. Patient was taken out of seizure precaution. 2. End-stage renal disease ? On hemodialysis consult placed to nephrology patient dialysis days on Wednesdays and Fridays 3. Diabetes mellitus type II ?With complications including Charcot foot as well as diabetic foot ulcers.? Patient is on long acting insulin, Accu-Cheks a.c. and at bedtime and covered with sliding scale insulin 4.? CAD; s/p NSTEMI x 2 with stents x 3 in (2017) and (2020) on prn SL NTG with history of ischemic cardiomyopathy; with LVEF ~45% -plan is to continue with guideline directed medical therapy 5.? Dyslipidemia -Patient is on statin therapy, continued at home dose 6.? GERD ? On PPI 7.? Chronic back pain ? Complicating patient's clinical condition. Plan for patient to be referred to pain management as outpatient 8. Hypothyroidism - Patient is on levothyroxine home dose continued 9.? Seizure disorder ? Patient is on Keppra, continued 10.? Anemia - Secondary to chronic disorder monitoring H&H and transfuse if patient becomes symptomatic or hemoglobin falls below? 7 11. Recurrent diabetic foot infection ? Patient has a diabetic foot ulcer which is chronic wound care nurse consulted 12. Left arm swelling ? Patient has a fistula in place ordered ultrasound to rule out thrombosis of her fistula ? 05/30/2025; patient had venous duplex performed on 05/23/2025 no thrombosis found 13. DVT prophylaxis Subcu heparin. Time spent in the patient's overall evaluation,decision-making process, review of diagnostic data, adjustment of management, discussion with other providers, nursing nursing and ancillary staff involved in patient's care documentation, 35 Minutes Medications at Discharge Home Medications paroxetine HCl 20 mg tablet 30 mg PO QHS DEPRESSION 07/07/21 pantoprazole 40 mg tablet,delayed release 40 mg PO BIDCM GERD 07/19/22 levothyroxine 25 mcg tablet 25 mcg PO DAILY thyroid 12/16/23 aspirin 81 mg capsule 81 mg PO DAILY blood thinner #30 caps 12/26/23 acetaminophen 325 mg tablet 650 mg PO Q6H PRN fever or pain 07/09/24 insulin lispro 100 unit/mL subcutaneous pen (Humalog KwikPen (U-100) Insulin) See Protocol subcut TIDAC blood sugar 09/13/24 L.acidophil,salivari-Bifido bifidum-Strep thermoph 175 mg capsule 1 cap PO 4X/DAY probiotic #0 caps 09/21/24 carvedilol 25 mg tablet 12.5 mg PO QHS blood pressure 12/06/24 levetiracetam 500 mg tablet 250 mg PO QHS seizures 12/06/24 levetiracetam 500 mg tablet 500 mg PO BID seizures 12/06/24 ondansetron HCl 4 mg tablet 4 mg PO Q8H nausea 02/28/25 carvedilol 12.5 mg tablet (Coreg) 12.5 mg PO SUTUTHSA 03/18/25 hydralazine 100 mg tablet 100 mg PO SUTUTHSA bp 03/18/25 melatonin 5 mg capsule 10 mg PO QHS sleep 03/18/25 sucralfate 1 gram tablet 1 g PO ACHS indigestion 03/18/25 acetaminophen 500 mg capsule 1,000 mg PO QHS pain 04/11/25 clobetasol-propionate 1 applic topical CONT PRN rash 04/11/25 insulin lispro 100 unit/mL subcutaneous pen (Humalog KwikPen (U-100) Insulin) 5 unit subcut ACHS blood sugar 04/11/25 methadone 5 mg tablet 2.5 mg (1/2 x 5 mg) PO BID pain 30 days #30 tabs 04/12/25 gabapentin 300 mg capsule 300 mg PO TID pain 30 days #90 caps 05/02/25 diazepam 5 mg tablet (Valium) 5 mg PO QHS muscle spasm 05/28/25 hydralazine 100 mg tablet 100 mg PO BID bp 05/28/25 Physical Exam Narrative GENERAL: Patient resting comfortably HEENT: Atraumatic; normocephalic EYES; Anicteric, Normal Conjunctiva NECK; supple, normal thyroid, RESPIRATORY: Diminished to auscultation CARDIOVASCULAR: Regular S1 S2, GI: soft, normoactive bowel sounds, : No Renal angle tenderness; EXTREMITIES: Right lower extremity in surgical dressing, left upper extremity swelling MUSCULOSKELETAL: no muscle wasting NEURO: no lateralizing signs. SKIN: No Rash PSYCH; Flat affect Weight / BMI Weight Weight: 74 kg Body Mass Index (BMI) 27.1 ABG / Lab / Microbiology Data 05/30/25 05:30 05/30/25 05:30 Laboratory: Laboratory Results - last 24 hr 05/29/25 11:20: POC Glucose 113 H 05/29/25 16:38: POC Glucose 174 H 05/29/25 21:30: POC Glucose 121 H 05/30/25 05:30: WBC 4.3 L, RBC 3.22 L, Hgb 9.8 L, Hct 32.5 L, MCV 100.9 H, MCH 30.4, MCHC 30.2 L, RDW Std Deviation 57.4 H, RDW Coeff of Fior 15.6 H, Plt Count 213, MPV 10.8, Immature Gran % (Auto) 0.200, Neut % (Auto) 64.3, Lymph % (Auto) 21.1, [place] % (Auto) 10.0, Eos % (Auto) 3.5, Baso % (Auto) 0.9, Absolute Neuts (auto) 2.8, Absolute Lymphs (auto) 0.91, Nucleated RBC % 0, Sodium 137, P otassium 5.5 H, Chloride 99, Carbon Dioxide 24.8, Anion Gap 14, BUN 46 H, C reatinine 4.89 H, Estim Creat Clear Calc 12.48 L, Est GFR (MDRD) Non-Af 10 L, B UN/Creatinine Ratio 9.5 L, Glucose 104 H, Calcium 8.3, Phosphorus 4.0, Magnesium 2.2 05/30/25 07:57: POC Glucose 175 H D/C Instructions Discharge Activity: Return to Normal Activity Call your doctor if you observe: Fever of 101 or Higher, Shortness of breath, Fainting spells and Chest pain DC O2, CPAP, BIPAP Needs Home O2 Discharge instructions: No Meaningful Use Info Meaningful Use Meaningful Use Diagnoses (Choose all that apply): None applicable Discharge Plan Admission Admit Date/Time: 05/29/25 02:11 Attending Provider: Rodney Yates Primary Care Provider: Pat Hughes UTILITY TRACTOR OPERATOR Consulting Providers: Angel Joel; Ashely Barakat Discharge Orders/Prescriptions Prescriptions: Continued levetiracetam 500 mg tablet 250 mg PO QHS Rx Instructions: -W- 500mg levetiracetam 500 mg tablet 500 mg PO BID ondansetron HCl 4 mg tablet 4 mg PO Q8H paroxetine HCl 20 mg tablet 30 mg PO QHS Patient Comments: TAKE 1 TABLET BY MOUTH EVERY DAY IN THE EVENING pantoprazole 40 mg tablet,delayed release (DR/EC) 40 mg PO BIDCM carvedilol 25 mg tablet 12.5 mg PO QHS acetaminophen 325 mg Tablet 650 mg PO Q6H PRN (Reason: fever or pain) insulin lispro [Humalog KwikPen Insulin] 100 unit/mL Insulin Pen See Protocol subcut TIDAC Protocol: 4. Sliding Scale Insulin High-Med Dosing Condition: 150-199 mg/dl = 2 units Condition: 200-259 mg/dl = 4 units Condition: 260-324 mg/dl = 6 units Condition: 325-374 mg/dl = 8 units Condition: 375-409 mg/dl = 10 units Condition: 410-449 mg/dl = 11 units Condition: Greater than 449 call physician Protocol Text: Suggested for: - Patients on Total Daily Insulin Dose of 56-80 units - Patient who are known to be insulin resistant or septic HIGH MEDIUM DOSING ALGORITHM L.acidoph,saliva-B.bif-S.therm 175 mg Capsule 1 cap PO 4X/DAY Qty: 0 0RF hydralazine 100 mg tablet 100 mg PO BID diazepam [Valium] 5 mg tablet 5 mg PO QHS levothyroxine 25 mcg tablet 25 mcg PO DAILY Patient Comments: TAKE 1 TABLET BY MOUTH EVERY DAY BEFORE BREAKFAST aspirin 81 mg capsule 81 mg PO DAILY Qty: 30 1RF melatonin 5 mg capsule 10 mg PO QHS carvedilol [Coreg] 12.5 mg tablet 12.5 mg PO SUTUTHSA Rx Instructions: must administer with a meal/food DO NOT ADMINISTER BEFORE DIALYSIS hydralazine 100 mg tablet 100 mg PO SUTUTHSA sucralfate 1 gram Tablet 1 g PO ACHS acetaminophen 500 mg capsule 1,000 mg PO QHS clobetasol-propionate 1 applic topical CONT PRN (Reason: rash) insulin lispro [Humalog KwikPen Insulin] 100 unit/mL insulin pen 5 unit subcut ACHS methadone 5 mg tablet 2.5 mg PO BID 30 Days Qty: 30 0RF gabapentin 300 mg capsule 300 mg PO TID 30 Days Qty: 90 0RF Referrals / Follow Up: Pat Hughes UTILITY TRACTOR OPERATOR, UTILITY TRACTOR OPERATOR-C [Primary Care Provider] - Disposition Disposition (needs filled in before D/C Order can be placed): Assisted Living Charges/Coding Visit Charges Inpatient E&M: 40057 Disch Hosp >30min
[2025-05-30] MEDS: Heparin Injection (Vial) 5,000 UNIT/ML VIAL 5000 UNIT SC (10:48)
--- NOTE | 2025-05-30 10:51 | CASEMGMT ---
KELSIE CM into pt room, pt states she does not know where her oxygen is from. Email to [employer] to see if pt is active.
[2025-05-30 10:56] VITALS: BP 98/46; PULSE 68
--- NOTE | 2025-05-30 11:00 | CASEMGMT ---
Social Work Updated by KELSIE Ly of provider intention to discharge patient and of safety plan in place for patient after crisis assessment last evening. Called [facility] Crisis Unit -([phone]) and spoke with Erika Viramontes regarding patient's assessment last evening. social worker school reports patient had noted improvement in mood, no longer endorsing feelings of hopelessness, no SI present, and no longer wanting to end life. Erika plans to call [facility] to review and ensure that the assisted living is able to accept back on a safety plan. Received call from Erika at [facility] who reports to have spoken with nursing shipyard supervisor today, Alyx, who reports patient is able to return. The Assisted living is working with [employer] to lock balcony from patient's apartment, as this was the identified method when patient was having SI. Erika faxed over updated assessment, which reflects improvement in symptomatology and plan for safety plan, which is also on the chart. Called Alyx at [facility] who confirms able to accept patient back today. Confirmed that a lock is being placed on door today so this cannot be used by the patient. Updated [facility] Discharge Mail Weigher who will arranging final discharge arrangements back to the Assisted Living. Plan: Return to [facility]. Safety plan in place as per Crisis at [facility]. Social Work will update Direction Human Resources Operations Specialist, Yaneli Adorno ([phone]) to discharge plan. -RACHAEL Salas
--- NOTE | 2025-05-30 11:11 | CASEMGMT ---
Discharge Planning Discharge summary, safety plan, crisis assessment, and transport time faxed to [facility], attn; Gianna. Fax confirmation rec'd. Physicians will transport pt by wheelchair at 1p. Nursing, SW, and pt updated. Attempted to update pts daughter (Oriana) but her vm is full. Rekha Moore DC Planning Asst.
--- NOTE | 2025-05-30 11:24 | CASEMGMT ---
Addendum entered by Aliyah Stubbs 05/30/25 13:00: KELSIE IRELAND into pt room to discuss oxygen. Pt states that she used to have oxygen but when she left the snf but does not have it at home. Confirmed with pt she does not wear oxygen, pt states she does sometimes at night. Asked again if pt has oxygen in the home, pt states no. Original Note: KELSIE IRELAND into pt room, pt lying in bed on RA. Pt states she does not know who her oxygen is through. DC physician assistant surgery placed call to [facility] who reported they were not aware pt was on oxygen. Email to [facility], they do not have pt as active. TC to [facility] [place], they do not have pt active with oxygen either. O2 testing placed.
--- NOTE | 2025-05-30 11:28 | PHA.DC.MR.R ---
Pharmacy MS Med Reconciliation Pharmacy Service has performed discharge medication reconciliation for this patient upon transfer to [place] facility The patient's discharge medication list was reviewed for discrepancies and discrepancies were resolved. Medications at Discharge Home Medications paroxetine HCl 20 mg tablet 30 mg PO QHS DEPRESSION 07/07/21 pantoprazole 40 mg tablet,delayed release 40 mg PO BIDCM GERD 07/19/22 levothyroxine 25 mcg tablet 25 mcg PO DAILY thyroid 12/16/23 aspirin 81 mg capsule 81 mg PO DAILY blood thinner #30 caps 12/26/23 acetaminophen 325 mg tablet 650 mg PO Q6H PRN fever or pain 07/09/24 insulin lispro 100 unit/mL subcutaneous pen (Humalog KwikPen (U-100) Insulin) See Protocol subcut TIDAC blood sugar 09/13/24 L.acidophil,salivari-Bifido bifidum-Strep thermoph 175 mg capsule 1 cap PO 4X/DAY probiotic #0 caps 09/21/24 carvedilol 25 mg tablet 12.5 mg PO QHS blood pressure 12/06/24 levetiracetam 500 mg tablet 250 mg PO QHS seizures 12/06/24 levetiracetam 500 mg tablet 500 mg PO BID seizures 12/06/24 ondansetron HCl 4 mg tablet 4 mg PO Q8H nausea 02/28/25 carvedilol 12.5 mg tablet (Coreg) 12.5 mg PO SUTUTHSA 03/18/25 hydralazine 100 mg tablet 100 mg PO SUTUTHSA bp 03/18/25 melatonin 5 mg capsule 10 mg PO QHS sleep 03/18/25 sucralfate 1 gram tablet 1 g PO ACHS indigestion 03/18/25 acetaminophen 500 mg capsule 1,000 mg PO QHS pain 04/11/25 clobetasol-propionate 1 applic topical CONT PRN rash 04/11/25 insulin lispro 100 unit/mL subcutaneous pen (Humalog KwikPen (U-100) Insulin) 5 unit subcut ACHS blood sugar 04/11/25 methadone 5 mg tablet 2.5 mg (1/2 x 5 mg) PO BID pain 30 days #30 tabs 04/12/25 gabapentin 300 mg capsule 300 mg PO TID pain 30 days #90 caps 05/02/25 diazepam 5 mg tablet (Valium) 5 mg PO QHS muscle spasm 05/28/25 hydralazine 100 mg tablet 100 mg PO BID bp 05/28/25
--- NOTE | 2025-05-30 12:18 | CASEMGMT ---
Social Work SW received call from Lisa at [facility]. LUCRETIA updated on plan for pt to return to [facility] today with safety plan in place. ERIN Fallon
--- NOTE | 2025-05-30 12:44 | CASEMGMT ---
[facility] [employer]irection [employer] Chain Procurement Manager - Yaneli Adorno [phone] Rekha Moore DC Planning Asst.
[2025-05-30 12:45] VITALS: BP 139/62; PULSE 74; RESP 16; TEMP 36.6; O2SAT 94
== END 2025-05-30 13:33 | disposition home or self-care (01) ==
LOC: ED 19:35 → MS3 05-29 02:31
PROVIDERS: Admitting Provider Family Medicine; Emergency Provider Emergency Medicine; PCP Nurse Practitioner Adult Health; Visit Provider Internal Medicine
DX: F32.9 Major depressive disorder, single episode, unspecified (principal); I12.0 Hypertensive chronic kidney disease with stage 5 chronic kidney disease or end stage renal disease; N18.6 End stage renal disease; E11.621 Type 2 diabetes mellitus with foot ulcer; L97.412 Non-pressure chronic ulcer of right heel and midfoot with fat layer exposed; G40.909 Epilepsy, unspecified, not intractable, without status epilepticus; E11.42 Type 2 diabetes mellitus with diabetic polyneuropathy; E11.22 Type 2 diabetes mellitus with diabetic chronic kidney disease; Z79.4 Long term (current) use of insulin; E11.610 Type 2 diabetes mellitus with diabetic neuropathic arthropathy; E78.5 Hyperlipidemia, unspecified; Z79.899 Other long term (current) drug therapy; G25.81 Restless legs syndrome; Z99.2 Dependence on renal dialysis; Z79.890 Hormone replacement therapy; I25.10 Atherosclerotic heart disease of native coronary artery without angina pectoris; F41.9 Anxiety disorder, unspecified; K21.9 Gastro-esophageal reflux disease without esophagitis; R45.851 Suicidal ideations; I25.5 Ischemic cardiomyopathy; Z79.82 Long term (current) use of aspirin; G89.29 Other chronic pain; D63.1 Anemia in chronic kidney disease; M79.89 Other specified soft tissue disorders
CPT/HCPCS: 36415; 80048; 80053; 80307; 81001; 82077; 82962; 83735; 84100; 85025; 90937; 93005; 93990; 96372; 96374; 97802; 99221; 99285; A4216; G0257; G0378

== ENCOUNTER 2025-06-04 02:27 | Observation (INO) | payer MEDICARE, MEDICAID, SELFPAY ==
[2018-09-21 13:23] VITALS: BMI 29.3
[2025-06-04] VITALS (23 sets, daily range): BP systolic 134–167; BP diastolic 55–135; PULSE 65–86; RESP 11–18; TEMP 36.4–37.1; O2SAT 91–100; BMI 29.0; BMI 27.3
--- NOTE | 2025-06-04 02:42 | EKG12_ITS ---
Test Reason : CP Blood Pressure : */* mmHG Vent. Rate : 68 BPM Atrial Rate : 68 BPM P-R Int : 186 ms QRS Dur : 94 ms QT Int : 430 ms P-R-T Axes : 29 18 38 degrees QTcB Int : 457 ms Normal sinus rhythm Normal ECG Confirmed by LISA HONEYCUTT ([id number]), online editor HARINI PHAM ([id number]) on 06/04/2025 1:04:28 PM Referred By: ANA LUISA Confirmed By: LISA HONEYCUTT
--- NOTE | 2025-06-04 02:46 | ED.VIS.DYS ---
HPI History of Present Illness Chief Complaint: Shortness of Breath Informant: patient and EMS Narrative Narrative: 59-year-old female very poor informant states she has had chest squeezing and dyspnea that woke her up from sleep within the past 1 or 2 hours. She presents around 2:30 AM. She states the chest discomfort is gone. She states it was nonradiating and she denies any other new symptoms. She is a dialysis patient, she had been compliant with dialysis, yesterday she had to interrupt her treatment because she had diarrhea with about an hour and a half left and did not finish. She has a chronic wound on her right lateral ankle that has been there for over a year she states it has been doing well and not hurting bothering her. She denies any fevers or chills. She has had a mild nonproductive cough lately. Denies orthopnea. No nausea or vomiting or diaphoresis or syncope. [facility] Medical History History of stress test History of echocardiogram History of transesophageal echocardiography (HONG) History of TIA (transient ischemic attack) History of myocardial infarction Diabetes mellitus type 2 with complications Non-pressure chronic ulcer of ankle with fat layer exposed Secondary hyperparathyroidism Non-pressure chronic ulcer of right ankle with necrosis of muscle Non-pressure chronic ulcer of left ankle with necrosis of muscle Adverse effect of synthetic cannabinoids, initial encounter [place] coma scale score 13-15, at arrival to emergency department Acute alteration in mental status Short Achilles tendon (acquired), left ankle Short Achilles tendon (acquired), right ankle Acquired cavovarus deformity of left foot Acquired cavovarus deformity of right foot Type 2 diabetes mellitus with diabetic polyneuropathy Adult failure to thrive ESRD (end stage renal disease) on dialysis Drowsiness Mental status, decreased Carotid artery stenosis MSSA bacteremia ESRD on hemodialysis Osteomyelitis Anemia in chronic illness Type 2 diabetes mellitus Foot osteomyelitis, left Chronic renal disease, stage 4, severely decreased glomerular filtration rate (GFR) between 15-29 mL/min/1.73 square meter Acute on chronic anemia Chronic ulcer of right foot with necrosis of bone Chronic kidney disease, stage 4 (severe) Diabetes mellitus with diabetic polyneuropathy Diabetic foot ulcers Chronic kidney disease, stage 3b Charcot's joint, right ankle and foot Charcot's joint, left ankle and foot Cellulitis Acute lumbar radiculopathy Essential hypertension Adult failure to thrive COVID-19 (08/28/21) Chronic ulcer of right leg with fat layer exposed Ulcer of left foot with fat layer exposed Chronic ulcer of right foot with fat layer exposed Hyperparathyroidism, secondary renal Iron deficiency anemia Bilateral edema of lower extremity Chronic foot pain Non-pressure chronic 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 layer exposed Debility Charcot's joint of right foot Diabetes Non-smoker Myocardial infarct Hypertension TIA (transient ischemic attack) Amputation foot, bilat Non-pressure chronic ulcer of other part of left foot with fat layer exposed 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 Ulcer of left foot with necrosis of muscle Ulcer of left foot with muscle involvement without evidence of necrosis Anxiety and depression Diabetic infection of left foot Delayed wound healing Non-compliance Diabetic polyneuropathy Ischemic cardiomyopathy Obesity (BMI 30.0-34.9) Acquired varus deformity of left foot Acquired varus deformity of right foot Atherosclerosis of [place] coronary artery of [place] heart without angina pectoris Hemoglobin A1c greater than 9.0% NSTEMI (non-ST elevated myocardial infarction) (09/20/18) GERD (gastroesophageal reflux disease) HLD (hyperlipidemia) Back pain, chronic RLS (restless legs syndrome) Home Medications ?Medication ?Instructions ?Recorded ?Last Taken ?Type paroxetine HCl 20 mg tablet 30 mg PO QHS DEPRESSION 07/07/21 04/07/22 History pantoprazole 40 mg tablet,delayed 40 mg PO BIDCM GERD 07/19/22 Unknown History release levothyroxine 25 mcg tablet 25 mcg PO DAILY thyroid 12/16/23 Unknown History aspirin 81 mg capsule 81 mg PO DAILY blood thinner #30 12/26/23 Unknown Rx caps acetaminophen 325 mg tablet 650 mg PO Q6H PRN fever or pain 07/09/24 Unknown History insulin lispro 100 unit/mL See Protocol subcut TIDAC blood 09/13/24 Unknown History subcutaneous pen (Humalog KwikPen sugar (U-100) Insulin) L.acidophil,salivari-Bifido 1 cap PO 4X/DAY probiotic #0 caps 09/21/24 Unknown Rx bifidum-Strep thermoph 175 mg capsule carvedilol 25 mg tablet 12.5 mg PO QHS blood pressure 12/06/24 Unknown History levetiracetam 500 mg tablet 250 mg PO QHS seizures 12/06/24 Unknown History levetiracetam 500 mg tablet 500 mg PO BID seizures 12/06/24 Unknown History ondansetron HCl 4 mg tablet 4 mg PO Q8H nausea 02/28/25 Unknown History carvedilol 12.5 mg tablet (Coreg) 12.5 mg PO SUTUTHSA 03/18/25 Unknown History hydralazine 100 mg tablet 100 mg PO SUTUTHSA bp 03/18/25 Unknown History melatonin 5 mg capsule 10 mg PO QHS sleep 03/18/25 Unknown History sucralfate 1 gram tablet 1 g PO ACHS indigestion 03/18/25 Unknown History acetaminophen 500 mg capsule 1,000 mg PO QHS pain 04/11/25 Unknown History clobetasol-propionate 1 applic topical CONT PRN rash 04/11/25 Unknown History insulin lispro 100 unit/mL 5 unit subcut ACHS blood sugar 04/11/25 Unknown History subcutaneous pen (Humalog KwikPen (U-100) Insulin) methadone 5 mg tablet 2.5 mg (1/2 x 5 mg) PO BID pain 30 04/12/25 Unknown Rx days #30 tabs gabapentin 300 mg capsule 300 mg PO TID pain 30 days #90 caps 05/02/25 Unknown Rx diazepam 5 mg tablet (Valium) 5 mg PO QHS muscle spasm 05/28/25 Unknown History hydralazine 100 mg tablet 100 mg PO BID bp 05/28/25 Unknown History Allergy/AdvReac Type Severity Reaction Status Date / Time fentanyl Allergy Other Verified 06/04/25 02:36 Penicillins Allergy swelling Verified 06/04/25 02:36 in throat vancomycin Allergy Itching Verified 06/04/25 02:36 metronidazole AdvReac Nausea Verified 06/04/25 02:36 Family History Mother Diabetes CVA (cerebral vascular accident) Brother CAD (coronary artery disease) CABG X 3 Cancer testicular Diabetes Brother CAD (coronary artery disease) CABG X3 Diabetes Brother CAD (coronary artery disease) Stents Diabetes Sister CAD (coronary artery disease) CABG x 3 CVA (cerebral vascular accident) Diabetes Surgical History History of cardiac catheterization History of History of foot surgery History of bilateral carpal tunnel release History of rotator cuff surgery History of coronary artery stent placement (12/31/20) Social History household members: none number of children: 2 current occupational status: disabled Smoking Status: Never smoker alcohol intake: never substance use type: does not use caffeine: Yes Type: carbonated beverages Number of servings: 2 ROS ROS ED Constitutional Constitutional ED: Denies chills or fever(s) Eyes Eyes: Denies change in vision ENT ENT ED: Denies rhinorrhea or sore throat Cardiovascular Cardiovascular: Reports chest pain; Denies palpitations, radiating jaw, neck or arm pain or syncope Respiratory/Chest Respiratory/Chest: Reports cough and dyspnea Gastrointestinal Gastrointestinal: Denies abdominal pain, diarrhea, nausea or vomiting Musculoskeletal Musculoskeletal: Denies back pain or neck pain Integumentary Denies abscess or rash Neurologic Neurologic: Denies headache(s), paresthesias or weakness EXAM Physical Exam Const Vital Signs: 06/04/25 02:29 06/04/25 02:36 06/04/25 02:38 Temperature 97.8 F Temperature Source Oral Pulse Rate 68 Respiratory Rate 11 L Respiratory Effort Normal Normal Respiratory Depth Normal Respiratory Pattern Normal Blood Pressure 167/80 H Blood Pressure Mean 109 Pulse Ox 95 Oxygen Delivery Method Room Air Room Air 06/04/25 02:48 06/04/25 02:55 06/04/25 03:28 Temperature Temperature Source Pulse Rate 68 65 Respiratory Rate 14 14 Respiratory Effort Respiratory Depth Respiratory Pattern Normal Blood Pressure 153/64 H Blood Pressure Mean 93 Pulse Ox 96 Oxygen Delivery Method Room Air Room Air 06/04/25 04:00 06/04/25 05:00 06/04/25 06:00 Temperature Temperature Source Pulse Rate 66 67 75 Respiratory Rate 12 12 14 Respiratory Effort Respiratory Depth Respiratory Pattern Blood Pressure 136/60 H 156/68 H 145/55 H Blood Pressure Mean 85 97 85 Pulse Ox 92 91 94 Oxygen Delivery Method Room Air Room Air Room Air Positive well nourished and well developed General Appearance ED: well developed and NAD HEENT Reports moist mucous membranes normocephalic and atraumatic Eyes PERRL and EOMs intact bilaterally Neck full ROM and supple Resp normal respiratory effort and clear to auscultation bilaterally Resp Narrative: Patient will not take deep inspiration when asked to, limiting exam to some degree but from what I can hear it sounds clear. Cardio regular rate, regular rhythm and no murmurs Rate: Negative for tachycardic GI non-tender and non-distended Auscultation: normoactive bowel sounds Palpation: soft Back/Spine no CVA tenderness General Back: other FROM Extremity normal to inspection General Extremety ED: Yes edema; Negative for pulses abnormal or tenderness General Extremity: edema bilateral lower extremity Details: mild; Negative for pulses abnormal Neuro oriented x3, CN's II-XII intact bilaterally and no sensory deficits noted Sensorium / Orientation: awake and alert Motor Exam: general weakness Psych Psych Narrative: Flat affect Skin no rashes or lesions noted Skin Narrative: Chronic wound on the lateral aspect of the right ankle, there is a slight amount of serous drainage on the ABD pad dressing, there is no tenderness or fluctuance or expressible discharge. Wound is superficial. MDM MDM MDM Narrative Medical decision making narrative: Cardiac, pulmonary workup obtained, considering pulmonary edema as well although her last echocardiogram showed diastolic dysfunction but normal systolic dysfunction last year. 1 view chest x-ray on my interpretation is fairly unremarkable showing no pulmonary edema or consolidation. Her EKG is essentially normal. Her potassium came back a little elevated at 6.6, I do not see any signs of hyperkalemia on the EKG. Her initial troponin is 91 likely related to her ESRD in context of her normal EKG and absence of chest discomfort, and she has had abnormal troponins in the past. In the meantime she was given an albuterol treatment and on reevaluation she states her dyspnea is resolved she feels much better, she had no recurrent chest discomfort, and she rested comfortably asymptomatic while waiting for delta troponin measurement and at the same time, I repeated her potassium. Her troponin was a little lower, consistent with nonspecific elevation due to ESRD, her potassium is a little higher. Ideally, the patient's potassium would have been redrawn longer after having had the Kayexalate, I repeated it out of convenience since we were repeating her troponin.. The patient is doing well, she has had no hypoxemia since she has been observed here on room air, the plan is to wait another hour or 2 and repeat her potassium. If it is lower at that point I would be comfortable with her being discharged home to discuss with her attendance clerk and/or sure repeat dialysis session later. Turned over to oncoming ED physician at shift change for repeat potassium level and final disposition. History & Record Review Additional record(s) reviewed:: Prior labs (Echo, renal function, potassium) Lab Data Attestation: I reviewed the patient's lab results. Labs: Laboratory Results - last 24 hr 06/04/25 06/04/25 03:12 05:10 WBC 6.0 RBC 3.05 L Hgb 9.4 L Hct 29.2 L MCV 95.7 D MCH 30.8 MCHC 32.2 D RDW Std Deviation 56.2 H RDW Coeff of Fior 16.2 H Plt Count 242 MPV 10.0 Immature Gran % (Auto) 0.500 Neut % (Auto) 69.5 Lymph % (Auto) 16.0 L [place] % (Auto) 9.8 Eos % (Auto) 3.5 Baso % (Auto) 0.7 Absolute Neuts (auto) 4.2 Absolute Lymphs (auto) 0.96 Nucleated RBC % 0 Sodium 132 L Potassium 6.6 H* 6.8 H* Chloride 94 L Carbon Dioxide 24.5 Anion Gap 14 BUN 61 H Creatinine 5.92 H Estim Creat Clear Calc 10.82 L Est GFR (MDRD) Non-Af 8 L BUN/Creatinine Ratio 10.3 Glucose 92 Calcium 8.8 Troponin T High Sens 91 H* D Troponin T Hi Sens 2 Hr 90 H* Radiography Diagnostic Testing: Clinical Impression(s) from Imaging Studies Chest X-Ray 06/04/25 03:20 IMPRESSION: Left internal jugular double-lumen central catheter is in good position with its tip in the superior vena cava. Mild decrease in central pulmonary venous congestion. Reading Location: [place] [address] Rhythm Strip Rhythm Strip: Sinus Rhythm Rate: 68 Ectopy: None EKG Initial EKG: Attestation: I personally reviewed and interpreted this EKG as follows: Interpretation: Sinus Rhythm and No Acute Injury Pattern Comments: Nml axis & intervals; nml EKG Discharge Plan Triage Chief Complaint: Shortness of Breath Other Complaint: Chest Pain ED Provider: Shayne Castro Dx/Rx/DC Orders Clinical Impression: Chest pain, unspecified, Acute dyspnea, ESRD (end stage renal disease) on dialysis, Acute hyperkalemia Instructions: ED Chest Pain, Uncertain Cause Prescriptions: No Action levetiracetam 500 mg tablet 250 mg PO QHS Rx Instructions: -- 500mg levetiracetam 500 mg tablet 500 mg PO BID ondansetron HCl 4 mg tablet 4 mg PO Q8H paroxetine HCl 20 mg tablet 30 mg PO QHS Patient Comments: TAKE 1 TABLET BY MOUTH EVERY DAY IN THE EVENING pantoprazole 40 mg tablet,delayed release (DR/EC) 40 mg PO BIDCM carvedilol 25 mg tablet 12.5 mg PO QHS acetaminophen 325 mg Tablet 650 mg PO Q6H PRN (Reason: fever or pain) insulin lispro [Humalog KwikPen Insulin] 100 unit/mL Insulin Pen See Protocol subcut TIDAC Protocol: 4. Sliding Scale Insulin High-Med Dosing Condition: 150-199 mg/dl = 2 units Condition: 200-259 mg/dl = 4 units Condition: 260-324 mg/dl = 6 units Condition: 325-374 mg/dl = 8 units Condition: 375-409 mg/dl = 10 units Condition: 410-449 mg/dl = 11 units Condition: Greater than 449 call physician Protocol Text: Suggested for: - Patients on Total Daily Insulin Dose of 56-80 units - Patient who are known to be insulin resistant or septic HIGH MEDIUM DOSING ALGORITHM jeff Chris-BJessicabif-S.therm 175 mg Capsule 1 cap PO 4X/DAY Qty: 0 0RF hydralazine 100 mg tablet 100 mg PO BID diazepam [Valium] 5 mg tablet 5 mg PO QHS levothyroxine 25 mcg tablet 25 mcg PO DAILY Patient Comments: TAKE 1 TABLET BY MOUTH EVERY DAY BEFORE BREAKFAST aspirin 81 mg capsule 81 mg PO DAILY Qty: 30 1RF melatonin 5 mg capsule 10 mg PO QHS carvedilol [Coreg] 12.5 mg tablet 12.5 mg PO SUTUTHSA Rx Instructions: must administer with a meal/food DO NOT ADMINISTER BEFORE DIALYSIS hydralazine 100 mg tablet 100 mg PO SUTUTHSA sucralfate 1 gram Tablet 1 g PO ACHS acetaminophen 500 mg capsule 1,000 mg PO QHS clobetasol-propionate 1 applic topical CONT PRN (Reason: rash) insulin lispro [Humalog KwikPen Insulin] 100 unit/mL insulin pen 5 unit subcut ACHS methadone 5 mg tablet 2.5 mg PO BID 30 Days Qty: 30 0RF gabapentin 300 mg capsule 300 mg PO TID 30 Days Qty: 90 0RF Primary Care Provider: Pat Hughes BUSINESS MACHINE OPERATOR Referrals: your attendance clerk [Other] (call today to see about a partial dialysis treatment for your high potassium) Pat Hughes BUSINESS MACHINE OPERATOR, BUSINESS MACHINE OPERATOR-C [Primary Care Provider] - As soon as possible Print Language: Portuguese Disposition Disposition: Home, Self Care
[2025-06-04] MEDS: Albuterol 2.5 MG/3 ML VIAL.NEB. INHALATION (02:48)
[2025-06-04 03:19] LABS: Hematocrit 29.2 % (37-47); Hemoglobin 9.4 g/dL (12.0-15.0); Immature Granulocytes Count 0.030 X10^3/uL (0.0-0.0); Mean Corp Hgb Conc 32.2 g/dL (32-36); Mean Corpuscular Volume 95.7 fL (81-99); Mean Platelet Vol. 10.0 fl (6.2-12.0); NRBC Flagged by Analyzer 0 % (0-5); Platelet Count 242 K/mm3 (150-450); RBC Distribution Width CV 16.2 % (11.6-14.6); RBC Distribution Width SD 56.2 fl (35.1-43.9); Red Blood Count 3.05 M/mm3 (4.2-5.4); White Blood Count 6.0 K/mm3 (4.4-11.0)
--- NOTE | 2025-06-04 03:20 | RAD_ITS ---
PROCEDURE: CHEST 1 VIEW (PORTABLE) 06/04/2025 REASON FOR EXAM: CP/SOB TECHNIQUE: Frontal view of the chest. COMPARISON: Radiograph on 04/11/2025. FINDINGS: Left internal jugular double-lumen central catheter is in good position with its tip in the superior vena cava. Mild decrease in central pulmonary venous congestion. Unremarkable spinal fusion metallic hardware. There is no demonstrated pleural abnormality. Enlarged cardiac silhouette. Normal mediastinum and elvie. Normal visualized pulmonary arteries. Atheromatous plaques of the visualized aortic arch and descending thoracic aorta. Diffuse spondylosis of the visualized thoracic spine. Normal visualized ribs, clavicles. Degenerative joint disease. There is no demonstrated abnormality of the visualized soft tissue structures of the upper abdomen. RAD/Chest 1 View (Portable) IMPRESSION: Left internal jugular double-lumen central catheter is in good position with it s tip in the superior vena cava. Mild decrease in central pulmonary venous congestion. Reading Location: [facility]
[2025-06-04 04:12] LABS: Anion Gap 14 (5-15); BUN 61 mg/dL (4-19); BUN/Creat Ratio 10.3 RATIO (10-20); Calcium,Total 8.8 mg/dL (7.6-11.0); Carbon Dioxide 24.5 mmol/L (21.0-32.0); Chloride 94 mmol/L (98-108); Estimated Creatinine Clearance 10.82 ml/min (50-250); Glucose 92 mg/dL (70-99); Potassium 6.6 mmol/L (3.3-5.1)
[2025-06-04 04:42] LABS: Troponin T High Sensitivity 91 ng/L (<=14)
[2025-06-04 05:50] LABS: Troponin T High Sens 2 HR 90 ng/L (<=14)
[2025-06-04 05:51] LABS: Potassium 6.8 mmol/L (3.3-5.1)
[2025-06-04 08:23] LABS: Potassium 6.8 mmol/L (3.3-5.1)
[2025-06-04 09:52] LABS: Troponin T High Sens 4 HR 90 ng/L (<=14)
[2025-06-04] MEDS: PureFlow B 2K Dialysis Soln 1 BAG 6 BAG PF (10:14)
[2025-06-04] MEDS: 0.9% Normal Saline 1,000 ML IV.SOLN. 1000 ML OPERA.SITE (10:14)
--- NOTE | 2025-06-04 13:55 | CASEMGMT ---
Social Work- SW received a call from Lisa, care source CM through [facility]. Lisa requests update at discharge. Lisa contact: [phone]. Lisa reports that pt is only receiving AL waiver; no other services at this time. ERIN Johnson
--- NOTE | 2025-06-04 14:15 | PCM.CONS.R ---
Assessment & Plan Assessment/Plan (1) ESRD on dialysis: PLAN: On hemodialysis. Seen on dialysis today, sleeping orders/flowsheets. Hyperkalemia. Did not respond to medical treatment. Will use 2K bath. Run slightly longer treatment to correct severe hyperkalemia. Discussed with staff at bedside HPI Consult Data Date of Consult: 06/04/25 HPI Narrative Reason for Consultation: ESRD HPI Narrative: DIONY ROCHA, is a 59 F who presents to the hospital with chest pain. Nephrology on consultation in view of ESRD. On hemodialysis, Tuesday, Tuesday, Tuesday schedule. Fairly noncompliant. She was recently admitted here with suicidal ideation. In ER she was found to have potassium of 6.8, did not respond to medical treatment. Admitted for for hyperkalemia resistant to medical treatment. asymptomatic [facility] Medical History History of stress test History of echocardiogram History of transesophageal echocardiography (HONG) History of TIA (transient ischemic attack) History of myocardial infarction Diabetes mellitus type 2 with complications Non-pressure chronic ulcer of ankle with fat layer exposed Secondary hyperparathyroidism Non-pressure chronic ulcer of right ankle with necrosis of muscle Non-pressure chronic ulcer of left ankle with necrosis of muscle Adverse effect of synthetic cannabinoids, initial encounter [place] coma scale score 13-15, at arrival to emergency department Acute alteration in mental status Short Achilles tendon (acquired), left ankle Short Achilles tendon (acquired), right ankle Acquired cavovarus deformity of left foot Acquired cavovarus deformity of right foot Type 2 diabetes mellitus with diabetic polyneuropathy Adult failure to thrive ESRD (end stage renal disease) on dialysis Drowsiness Mental status, decreased Carotid artery stenosis MSSA bacteremia ESRD on hemodialysis Osteomyelitis Anemia in chronic illness Type 2 diabetes mellitus Foot osteomyelitis, left Chronic renal disease, stage 4, severely decreased glomerular filtration rate (GFR) between 15-29 mL/min/1.73 square meter Acute on chronic anemia Chronic ulcer of right foot with necrosis of bone Chronic kidney disease, stage 4 (severe) Diabetes mellitus with diabetic polyneuropathy Diabetic foot ulcers Chronic kidney disease, stage 3b Charcot's joint, right ankle and foot Charcot's joint, left ankle and foot Cellulitis Acute lumbar radiculopathy Essential hypertension Adult failure to thrive COVID-19 (08/28/21) Chronic ulcer of right leg with fat layer exposed Ulcer of left foot with fat layer exposed Chronic ulcer of right foot with fat layer exposed Hyperparathyroidism, secondary renal Iron deficiency anemia Bilateral edema of lower extremity Chronic foot pain Non-pressure chronic 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 layer exposed Debility Charcot's joint of right foot Diabetes Non-smoker Myocardial infarct Hypertension TIA (transient ischemic attack) Amputation foot, bilat Non-pressure chronic ulcer of other part of left foot with fat layer exposed 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 Ulcer of left foot with necrosis of muscle Ulcer of left foot with muscle involvement without evidence of necrosis Anxiety and depression Diabetic infection of left foot Delayed wound healing Non-compliance Diabetic polyneuropathy Ischemic cardiomyopathy Obesity (BMI 30.0-34.9) Acquired varus deformity of left foot Acquired varus deformity of right foot Atherosclerosis of [place] coronary artery of [place] heart without angina pectoris Hemoglobin A1c greater than 9.0% NSTEMI (non-ST elevated myocardial infarction) (09/20/18) GERD (gastroesophageal reflux disease) HLD (hyperlipidemia) Back pain, chronic RLS (restless legs syndrome) Home Medications ?Medication ?Instructions ?Recorded ?Last Taken ?Type paroxetine HCl 20 mg tablet 30 mg PO QHS DEPRESSION 07/07/21 04/07/22 History pantoprazole 40 mg tablet,delayed 40 mg PO BIDCM GERD 07/19/22 Unknown History release levothyroxine 25 mcg tablet 25 mcg PO DAILY thyroid 12/16/23 Unknown History aspirin 81 mg capsule 81 mg PO DAILY blood thinner #30 12/26/23 Unknown Rx caps insulin lispro 100 unit/mL See Protocol subcut TIDAC blood 09/13/24 Unknown History subcutaneous pen (Humalog KwikPen sugar (U-100) Insulin) L.acidophil,salivari-Bifido 1 cap PO 4X/DAY probiotic #0 caps 09/21/24 Unknown Rx bifidum-Strep thermoph 175 mg capsule carvedilol 25 mg tablet 12.5 mg PO QHS blood pressure 12/06/24 Unknown History levetiracetam 500 mg tablet 250 mg PO QHS seizures 12/06/24 Unknown History levetiracetam 500 mg tablet 500 mg PO BID seizures 12/06/24 Unknown History ondansetron HCl 4 mg tablet 4 mg PO Q8H nausea 02/28/25 Unknown History carvedilol 12.5 mg tablet (Coreg) 12.5 mg PO [facility] 03/18/25 Unknown History hydralazine 100 mg tablet 100 mg PO SUTUTHSA bp 03/18/25 Unknown History melatonin 5 mg capsule 10 mg PO QHS sleep 03/18/25 Unknown History sucralfate 1 gram tablet 1 g PO ACHS indigestion 03/18/25 Unknown History acetaminophen 500 mg capsule 1,000 mg PO QHS PRN pain 04/11/25 Unknown History clobetasol-propionate 1 applic topical BID PRN rash 04/11/25 Unknown History insulin lispro 100 unit/mL 17 unit subcut ACHS blood sugar 04/11/25 Unknown History subcutaneous pen (Humalog KwikPen (U-100) Insulin) gabapentin 300 mg capsule 300 mg PO TID pain 30 days #90 caps 05/02/25 Unknown Rx diazepam 5 mg tablet (Valium) 2.5 mg PO QHS muscle spasm 05/28/25 Unknown History hydralazine 100 mg tablet 100 mg PO BID bp 05/28/25 Unknown History atorvastatin 40 mg tablet (Lipitor) 40 mg PO QHS cholesterol 06/04/25 Unknown History hydroxyzine HCl 25 mg tablet 25 mg PO DAILY 06/04/25 Unknown History methadone 5 mg tablet 2.5 mg PO TID pain 06/04/25 Unknown History Allergy/AdvReac Type Severity Reaction Status Date / Time fentanyl Allergy Other Verified 06/04/25 02:36 Penicillins Allergy swelling Verified 06/04/25 02:36 in throat vancomycin Allergy Itching Verified 06/04/25 02:36 metronidazole AdvReac Nausea Verified 06/04/25 02:36 Family History Mother Diabetes CVA (cerebral vascular accident) Brother CAD (coronary artery disease) CABG X 3 Cancer testicular Diabetes Brother CAD (coronary artery disease) CABG X3 Diabetes Brother CAD (coronary artery disease) Stents Diabetes Sister CAD (coronary artery disease) CABG x 3 CVA (cerebral vascular accident) Diabetes Surgical History History of cardiac catheterization History of History of foot surgery History of bilateral carpal tunnel release History of rotator cuff surgery History of coronary artery stent placement (12/31/20) Social History household members: none number of children: 2 current occupational status: disabled Smoking Status: Never smoker alcohol intake: never substance use type: does not use caffeine: Yes Type: carbonated beverages Number of servings: 2 ROS ROS Narrative Negative except above Physical Exam Narrative Alert awake oriented x 3 no obvious distress no pallor no icterus no JVD s1s2 no murmurs lungs clear abdomen soft no organomegaly no edema no cyanosis Lab / Micro Data 06/04/25 03:12 06/04/25 07:53 Labs: Laboratory Results - last 24 hr 06/04/25 03:12: WBC 6.0, RBC 3.05 L, Hgb 9.4 L, Hct 29.2 L, MCV 95.7 D, MCH 30.8, MCHC 32.2 D, RDW Std Deviation 56.2 H, RDW Coeff of [place] 16.2 H, Plt Count 242, MPV 10.0, Immature Gran % (Auto) 0.500, Neut % (Auto) 69.5, Lymph % (Auto) 16.0 L, [place] % (Auto) 9.8, Eos % (Auto) 3.5, Baso % (Auto) 0.7, Absolute Neuts (auto) 4.2, Absolute Lymphs (auto) 0.96, Nucleated RBC % 0, Sodium 132 L, Potassium 6.6 H*, Chloride 94 L, Carbon Dioxide 24.5, Anion Gap 14, BUN 61 H, Creatinine 5.92 H, Estim Creat Clear Calc 10.82 L, Est GFR (MDRD) Non-Af 8 L, BUN/Creatinine Ratio 10.3, Glucose 92, Calcium 8.8, Troponin T High Sens 91 H* D 06/04/25 05:10: Potassium 6.8 H*, Troponin T Hi Sens 2 Hr 90 H* 06/04/25 07:53: Potassium 6.8 H*, Troponin T Hi Sens 4Hr 90 H* Rhythm Strip Rhythm Strip: Sinus Rhythm Rate: 68 Ectopy: None Imaging Radiology Impression Chest X-Ray 06/04/25 03:20 IMPRESSION: Left internal jugular double-lumen central catheter is in good position with its tip in the superior vena cava. Mild decrease in central pulmonary venous congestion. Reading [facility]
--- NOTE | 2025-06-04 14:25 | PCM.HP.STD ---
HPI - General General Date of Admission: 06/04/25 HPI Narrative DIONY ROCHA, is a 59 F who presents to the hospital for shortness of breath. She is a dialysis patient on Tuesday and Tuesday however her Tuesday dialysis was cut short by about an hour to an hour and a half because of an episode of diarrhea. She is no longer complaining of diarrhea however she was having some shortness of breath though while in the ER she was maintained on room air. She did have an elevated troponin however this is insignificant in light of her end-stage renal disease and the lack of chest pain. Chest x-ray does actually demonstrated decrease in central pulmonary venous congestion however the main impetus for her admission to the hospital was hyperkalemia that did not improve with Kayexalate and so the ED physician discussed the case with nephrology who recommended admission for dialysis which she should receive today. [facility] Medical History History of stress test History of echocardiogram History of transesophageal echocardiography (HONG) History of TIA (transient ischemic attack) History of myocardial infarction Diabetes mellitus type 2 with complications Non-pressure chronic ulcer of ankle with fat layer exposed Secondary hyperparathyroidism Non-pressure chronic ulcer of right ankle with necrosis of muscle Non-pressure chronic ulcer of left ankle with necrosis of muscle Adverse effect of synthetic cannabinoids, initial encounter [place] coma scale score 13-15, at arrival to emergency department Acute alteration in mental status Short Achilles tendon (acquired), left ankle Short Achilles tendon (acquired), right ankle Acquired cavovarus deformity of left foot Acquired [place] deformity of right foot Type 2 diabetes mellitus with diabetic polyneuropathy Adult failure to thrive ESRD (end stage renal disease) on dialysis Drowsiness Mental status, decreased Carotid artery stenosis MSSA bacteremia ESRD on hemodialysis Osteomyelitis Anemia in chronic illness Type 2 diabetes mellitus Foot osteomyelitis, left Chronic renal disease, stage 4, severely decreased glomerular filtration rate (GFR) between 15-29 mL/min/1.73 square meter Acute on chronic anemia Chronic ulcer of right foot with necrosis of bone Chronic kidney disease, stage 4 (severe) Diabetes mellitus with diabetic polyneuropathy Diabetic foot ulcers Chronic kidney disease, stage 3b Charcot's joint, right ankle and foot Charcot's joint, left ankle and foot Cellulitis Acute lumbar radiculopathy Essential hypertension Adult failure to thrive COVID-19 (08/28/21) Chronic ulcer of right leg with fat layer exposed Ulcer of left foot with fat layer exposed Chronic ulcer of right foot with fat layer exposed Hyperparathyroidism, secondary renal Iron deficiency anemia Bilateral edema of lower extremity Chronic foot pain Non-pressure chronic 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 layer exposed Debility Charcot's joint of right foot Diabetes Non-smoker Myocardial infarct Hypertension TIA (transient ischemic attack) Amputation foot, bilat Non-pressure chronic ulcer of other part of left foot with fat layer exposed 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 Ulcer of left foot with necrosis of muscle Ulcer of left foot with muscle involvement without evidence of necrosis Anxiety and depression Diabetic infection of left foot Delayed wound healing Non-compliance Diabetic polyneuropathy Ischemic cardiomyopathy Obesity (BMI 30.0-34.9) Acquired varus deformity of left foot Acquired varus deformity of right foot Atherosclerosis of [place] coronary artery of [place] heart without angina pectoris Hemoglobin A1c greater than 9.0% NSTEMI (non-ST elevated myocardial infarction) (09/20/18) GERD (gastroesophageal reflux disease) HLD (hyperlipidemia) Back pain, chronic RLS (restless legs syndrome) Home Medications ?Medication ?Instructions ?Recorded ?Last Taken ?Type paroxetine HCl 20 mg tablet 30 mg PO QHS DEPRESSION 07/07/21 04/07/22 History pantoprazole 40 mg tablet,delayed 40 mg PO BIDCM GERD 07/19/22 Unknown History release levothyroxine 25 mcg tablet 25 mcg PO DAILY thyroid 12/16/23 Unknown History aspirin 81 mg capsule 81 mg PO DAILY blood thinner #30 12/26/23 Unknown Rx caps insulin lispro 100 unit/mL See Protocol subcut TIDAC blood 09/13/24 Unknown History subcutaneous pen (Humalog KwikPen sugar (U-100) Insulin) L.acidophil,salivari-Bifido 1 cap PO 4X/DAY probiotic #0 caps 09/21/24 Unknown Rx bifidum-Strep thermoph 175 mg capsule carvedilol 25 mg tablet 12.5 mg PO QHS blood pressure 12/06/24 Unknown History levetiracetam 500 mg tablet 250 mg PO QHS seizures 12/06/24 Unknown History levetiracetam 500 mg tablet 500 mg PO BID seizures 12/06/24 Unknown History ondansetron HCl 4 mg tablet 4 mg PO Q8H nausea 02/28/25 Unknown History carvedilol 12.5 mg tablet (Coreg) 12.5 mg PO SUTUTHSA 03/18/25 Unknown History hydralazine 100 mg tablet 100 mg PO SUTUTHSA bp 03/18/25 Unknown History melatonin 5 mg capsule 10 mg PO QHS sleep 03/18/25 Unknown History sucralfate 1 gram tablet 1 g PO ACHS indigestion 03/18/25 Unknown History acetaminophen 500 mg capsule 1,000 mg PO QHS PRN pain 04/11/25 Unknown History clobetasol-propionate 1 applic topical BID PRN rash 04/11/25 Unknown History insulin lispro 100 unit/mL 17 unit subcut ACHS blood sugar 04/11/25 Unknown History subcutaneous pen (Humalog KwikPen (U-100) Insulin) gabapentin 300 mg capsule 300 mg PO TID pain 30 days #90 caps 05/02/25 Unknown Rx diazepam 5 mg tablet (Valium) 2.5 mg PO QHS muscle spasm 05/28/25 Unknown History hydralazine 100 mg tablet 100 mg PO BID bp 05/28/25 Unknown History atorvastatin 40 mg tablet (Lipitor) 40 mg PO QHS cholesterol 06/04/25 Unknown History hydroxyzine HCl 25 mg tablet 25 mg PO DAILY 06/04/25 Unknown History methadone 5 mg tablet 2.5 mg PO TID pain 06/04/25 Unknown History Allergy/AdvReac Type Severity Reaction Status Date / Time fentanyl Allergy Other Verified 06/04/25 02:36 Penicillins Allergy swelling Verified 06/04/25 02:36 in throat vancomycin Allergy Itching Verified 06/04/25 02:36 metronidazole AdvReac Nausea Verified 06/04/25 02:36 Family History Mother Diabetes CVA (cerebral vascular accident) Brother CAD (coronary artery disease) CABG X 3 Cancer testicular Diabetes Brother CAD (coronary artery disease) CABG X3 Diabetes Brother CAD (coronary artery disease) Stents Diabetes Sister CAD (coronary artery disease) CABG x 3 CVA (cerebral vascular accident) Diabetes Surgical History History of cardiac catheterization History of History of foot surgery History of bilateral carpal tunnel release History of rotator cuff surgery History of coronary artery stent placement (12/31/20) Social History household members: none number of children: 2 current occupational status: disabled Smoking Status: Never smoker alcohol intake: never substance use type: does not use caffeine: Yes Type: carbonated beverages Number of servings: 2 ROS Constitutional Constitutional: Denies chills, fatigue, fever(s) or malaise Eyes Eyes: Denies blurry vision ENT HEENT: Denies headache(s) or nasal discharge Cardiovascular Cardiovascular: Denies chest pain, dyspnea on exertion or syncope Respiratory/Chest Respiratory/Chest: Reports shortness of breath at rest and shortness of breath with exertion; Denies cough Gastrointestinal Gastrointestinal: Denies constipation, diarrhea, nausea or vomiting Genitourinary Genitourinary: Denies dysuria Neurologic Neurologic: Denies focal weakness, numbness or tremor(s) Psychiatric Psychiatric: Denies anxiety or depression Vital Signs Vital Signs Vital Signs: 06/04/25 02:29 06/04/25 02:36 06/04/25 02:38 Temperature 97.8 F Temperature Source Oral Pulse Rate 68 Pulse Strength Respiratory Rate 11 L Respiratory Effort Normal Normal Respiratory Depth Normal Respiratory Pattern Normal Blood Pressure 167/80 H Blood Pressure Mean 109 Blood Pressure Source Blood Pressure Position Blood Pressure Location Pulse Ox 95 Oxygen Delivery Method Room Air Room Air 06/04/25 02:48 06/04/25 02:55 06/04/25 03:28 Temperature Temperature Source Pulse Rate 68 65 Pulse Strength Respiratory Rate 14 14 Respiratory Effort Respiratory Depth Respiratory Pattern Normal Blood Pressure 153/64 H Blood Pressure Mean 93 Blood Pressure Source Blood Pressure Position Blood Pressure Location Pulse Ox 96 Oxygen Delivery Method Room Air Room Air 06/04/25 04:00 06/04/25 05:00 06/04/25 06:00 Temperature Temperature Source Pulse Rate 66 67 75 Pulse Strength Respiratory Rate 12 12 14 Respiratory Effort Respiratory Depth Respiratory Pattern Blood Pressure 136/60 H 156/68 H 145/55 H Blood Pressure Mean 85 97 85 Blood Pressure Source Blood Pressure Position Blood Pressure Location Pulse Ox 92 91 94 Oxygen Delivery Method Room Air Room Air Room Air 06/04/25 07:00 06/04/25 08:00 06/04/25 08:42 Temperature 98.7 F 98.4 F Temperature Source Oral Pulse Rate 74 78 79 Pulse Strength Respiratory Rate 18 16 16 Respiratory Effort Respiratory Depth Respiratory Pattern Blood Pressure 156/72 H 148/64 H 159/80 H Blood Pressure Mean 100 92 106 Blood Pressure Source Blood Pressure Position Blood Pressure Location Pulse Ox 91 98 92 Oxygen Delivery Method Room Air Room Air 06/04/25 09:00 06/04/25 09:51 06/04/25 09:57 Temperature 98.3 F Temperature Source Oral Pulse Rate 72 70 Pulse Strength Normal (2+) Respiratory Rate 16 18 Respiratory Effort Normal Non-Labored Respiratory Depth Normal Respiratory Pattern Normal Blood Pressure 151/78 H 148/65 H Blood Pressure Mean 102 92 Blood Pressure Source Monitor Blood Pressure Position Sitting Blood Pressure Location Right Arm Pulse Ox 98 98 Oxygen Delivery Method Room Air Room Air 06/04/25 09:59 06/04/25 10:28 06/04/25 10:56 Temperature Temperature Source Pulse Rate 82 76 Pulse Strength Respiratory Rate 17 16 Respiratory Effort Normal Non-Labored Respiratory Depth Normal Respiratory Pattern Normal Blood Pressure 166/81 H 134/64 H Blood Pressure Mean 109 87 Blood Pressure Source Monitor Monitor Blood Pressure Position Sitting Left Lateral Blood Pressure Location Right Arm Right Arm Pulse Ox Oxygen Delivery Method Room Air Room Air Room Air 06/04/25 11:28 06/04/25 11:58 06/04/25 12:28 Temperature Temperature Source Pulse Rate 79 80 85 Pulse Strength Respiratory Rate 15 16 15 Respiratory Effort Respiratory Depth Respiratory Pattern Blood Pressure 144/70 H 153/73 H 158/89 H Blood Pressure Mean 94 99 112 Blood Pressure Source Monitor Monitor Monitor Blood Pressure Position Left Lateral Left Lateral Left Lateral Blood Pressure Location Right Arm Right Arm Right Arm Pulse Ox Oxygen Delivery Method Room Air Room Air Room Air 06/04/25 12:58 06/04/25 13:28 06/04/25 13:57 Temperature Temperature Source Pulse Rate 85 84 86 Pulse Strength Respiratory Rate 15 14 14 Respiratory Effort Respiratory Depth Respiratory Pattern Blood Pressure 161/72 H 149/67 H 153/91 H Blood Pressure Mean 101 94 111 Blood Pressure Source Monitor Monitor Monitor Blood Pressure Position Left Lateral Left Lateral Left Lateral Blood Pressure Location Right Arm Right Arm Right Arm Pulse Ox Oxygen Delivery Method Room Air Room Air Room Air Weight Weight: 174 lb 9.698 oz Body Mass Index (BMI) 29.0 Physical Exam Narrative General: Alert, Oriented x3, Cooperative, No apparent distress HEENT: Atraumatic, PERRLA, EOMI, Normocephalic Oral: Moist Mucosa Neck: Supple, No JVD Lungs: Diminished, Normal air movement, No rhonchi, No wheeze, No rales Cardiovascular: Regular rate, Regular Rhythm, Normal S1, Normal S2, No murmurs Abdomen: Soft, Non Tender, Non-Distended, No Hepato-splenomegaly Extremities: Edema, Capillary Refill Less than 3 Seconds Skin: Chronic lateral wound on her right ankle not infected Musculoskeletal: No Tenderness to Palpation of Joints or Extremities Neurological: No focal neurological deficits, moves all extremities Psych/Mental Status: Flat Results Lab / Micro Data 06/04/25 03:12 06/04/25 07:53 Labs: Laboratory Results - last 24 hr 06/04/25 03:12: WBC 6.0, RBC 3.05 L, Hgb 9.4 L, Hct 29.2 L, MCV 95.7 D, MCH 30.8, MCHC 32.2 D, RDW Std Deviation 56.2 H, RDW Coeff of [place] 16.2 H, Plt Count 242, MPV 10.0, Immature Gran % (Auto) 0.500, Neut % (Auto) 69.5, Lymph % (Auto) 16.0 L, [place] % (Auto) 9.8, Eos % (Auto) 3.5, Baso % (Auto) 0.7, Absolute Neuts (auto) 4.2, Absolute Lymphs (auto) 0.96, Nucleated RBC % 0, Sodium 132 L, Potassium 6.6 H*, Chloride 94 L, Carbon Dioxide 24.5, Anion Gap 14, BUN 61 H, Creatinine 5.92 H, Estim Creat Clear Calc 10.82 L, Est GFR (MDRD) Non-Af 8 L, BUN/Creatinine Ratio 10.3, Glucose 92, Calcium 8.8, Troponin T High Sens 91 H* D 06/04/25 05:10: Potassium 6.8 H*, Troponin T Hi Sens 2 Hr 90 H* 06/04/25 07:53: Potassium 6.8 H*, Troponin T Hi Sens 4Hr 90 H* Rhythm Strip Rhythm Strip: Sinus Rhythm Rate: 68 Ectopy: None Imaging Radiology Impression Chest X-Ray 06/04/25 03:20 IMPRESSION: Left internal jugular double-lumen central catheter is in good position with its tip in the superior vena cava. Mild decrease in central pulmonary venous congestion. Reading Location: [place] [id number] Assessment & Plan Assessment/Plan (1) Acute dyspnea: (2) Acute hyperkalemia: PLAN: Plan 1. Acute hyperkalemia with dyspnea ? She is about 4 pounds above her dry weight, will continue with dialysis ? Will also continue with dialysis for her hyperkalemia, she did receive albuterol and Kayexalate in the ER it did not improve ? Will recheck her potassium after dialysis and if it is significantly improved she could potentially discharge as she is not requiring any oxygen and does not have any signs of pneumonia and her lab work is otherwise unremarkable except for her potassium 2. CAD with ischemic cardiomyopathy/essential HTN/HLD ? Continue with her home cholesterol and blood pressure medications if she stays overnight ? Will monitor and make adjustments as necessary 3. Type 2 diabetes with end-stage renal disease ? Continue with dialysis ? Will place her on sliding scale insulin if she stays overnight 4. GERD ? Stable ? Continue with her home medications 5. Anxiety/depression ? Stable ? Continue with her home medications 6. Seizure disorder ? Stable ? Continue with her Keppra DVT SCDs Charges/Coding Visit Charges Inpatient E&M: 38217 Init Hosp L2
[2025-06-04 15:52] LABS: Anion Gap 15 (5-15); BUN 29 mg/dL (4-19); BUN/Creat Ratio 10.2 RATIO (10-20); Calcium,Total 9.5 mg/dL (7.6-11.0); Carbon Dioxide 23.9 mmol/L (21.0-32.0); Chloride 98 mmol/L (98-108); Estimated Creatinine Clearance 21.84 ml/min (50-250); Glucose 117 mg/dL (70-99); Potassium 4.2 mmol/L (3.3-5.1)
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
--- NOTE | 2025-06-04 16:14 | PHA.DC.MR.R ---
Pharmacy [place] Med Reconciliation Pharmacy Service has performed discharge medication reconciliation for this patient. The patient's discharge medication list was reviewed for discrepancies and discrepancies were resolved. Medications at Discharge Home Medications paroxetine HCl 20 mg tablet 30 mg PO QHS DEPRESSION 07/07/21 pantoprazole 40 mg tablet,delayed release 40 mg PO BIDCM GERD 07/19/22 levothyroxine 25 mcg tablet 25 mcg PO DAILY thyroid 12/16/23 aspirin 81 mg capsule 81 mg PO DAILY blood thinner #30 caps 12/26/23 insulin lispro 100 unit/mL subcutaneous pen (Humalog KwikPen (U-100) Insulin) See Protocol subcut TIDAC blood sugar 09/13/24 L.acidophil,salivari-Bifido bifidum-Strep thermoph 175 mg capsule 1 cap PO 4X/DAY probiotic #0 caps 09/21/24 carvedilol 25 mg tablet 12.5 mg PO QHS blood pressure 12/06/24 levetiracetam 500 mg tablet 250 mg PO QHS seizures 12/06/24 levetiracetam 500 mg tablet 500 mg PO BID seizures 12/06/24 ondansetron HCl 4 mg tablet 4 mg PO Q8H nausea 02/28/25 carvedilol 12.5 mg tablet (Coreg) 12.5 mg PO SUTUTHSA 03/18/25 hydralazine 100 mg tablet 100 mg PO SUTUTHSA bp 03/18/25 melatonin 5 mg capsule 10 mg PO QHS sleep 03/18/25 sucralfate 1 gram tablet 1 g PO ACHS indigestion 03/18/25 acetaminophen 500 mg capsule 1,000 mg PO QHS PRN pain 04/11/25 clobetasol-propionate 1 applic topical BID PRN rash 04/11/25 insulin lispro 100 unit/mL subcutaneous pen (Humalog KwikPen (U-100) Insulin) 17 unit subcut ACHS blood sugar 04/11/25 gabapentin 300 mg capsule 300 mg PO TID pain 30 days #90 caps 05/02/25 diazepam 5 mg tablet (Valium) 2.5 mg PO QHS muscle spasm 05/28/25 hydralazine 100 mg tablet 100 mg PO BID bp 05/28/25 atorvastatin 40 mg tablet (Lipitor) 40 mg PO QHS cholesterol 06/04/25 hydroxyzine HCl 25 mg tablet 25 mg PO DAILY 06/04/25 methadone 5 mg tablet 2.5 mg PO TID pain 06/04/25
--- NOTE | 2025-06-04 16:50 | CASEMGMT ---
Social Work- SW received notice from physician that pt is medically ready for discharge. SW met with pt to discuss discharge plans. Pt agreeable to SW calling pt contacts for transport. SW called pt contact Caren who reported that she is unable to transport pt this evening. SW attempted to call pt dtr; no answer. SW called [facility] transport ([phone]) and spoke with Hiro Hayes who share that pt will be picked up between 4:50-6:50. Transport provider will call PCU floor/air conditioning unit tester 15 prior to arrival. Confirmation #: [id number]. SW updated bedside nurse and air conditioning unit tester. Pt agreeable to discharge plan and reports no other needs at this time. LUCRETIA Called Eliel Gonzalez CM ([phone]) to update on discharge plans and left a voicemail. ERIN Johnson
--- NOTE | 2025-06-04 17:12 | NURSING ---
Returned call to Suzanna Suero, spoke to nurse Staples, updated on treatment at [facility] today and pt will return this evening.
== END 2025-06-04 19:09 | disposition home or self-care (01) ==
LOC: ED 05:45 → PCU 09:03
PROVIDERS: Admitting Provider Family Medicine; Emergency Provider Emergency Medicine; PCP Nurse Practitioner Adult Health; Visit Provider Family Medicine
DX: E87.5 Hyperkalemia (principal); N18.6 End stage renal disease; I12.0 Hypertensive chronic kidney disease with stage 5 chronic kidney disease or end stage renal disease; G40.909 Epilepsy, unspecified, not intractable, without status epilepticus; E11.22 Type 2 diabetes mellitus with diabetic chronic kidney disease; E11.42 Type 2 diabetes mellitus with diabetic polyneuropathy; Z79.4 Long term (current) use of insulin; Z99.2 Dependence on renal dialysis; I25.10 Atherosclerotic heart disease of native coronary artery without angina pectoris; G89.29 Other chronic pain; E78.5 Hyperlipidemia, unspecified; Z79.82 Long term (current) use of aspirin; Z79.899 Other long term (current) drug therapy; Z79.890 Hormone replacement therapy; K21.9 Gastro-esophageal reflux disease without esophagitis; I25.5 Ischemic cardiomyopathy; F41.9 Anxiety disorder, unspecified; F32.A Depression, unspecified
CPT/HCPCS: 71045; 80048; 84132; 84484; 85025; 90937; 93005; 94640; 96372; 99221; 99285; A4216; G0257; G0378

== ENCOUNTER 2025-06-24 16:18 | Emergency (ER) | payer MEDICARE, MEDICAID, SELFPAY ==
[2018-09-21 13:23] VITALS: BMI 29.3
[2025-06-24 16:19] VITALS: BP 153/62; PULSE 72; RESP 18; TEMP 36.7; O2SAT 97
--- NOTE | 2025-06-24 17:05 | EX.ED.DYSGE1 ---
HPI History of Present Illness Chief Complaint: Cellulitis Informant: patient and family Narrative Narrative: 60-year-old female states she has a tender swollen area on the dorsum of her left hand for 2-4 weeks she is not sure exactly has been very gradual. She states the swelling in her left hand started 2 months ago when she had an AV fistula placed in her left upper arm. Now she is seeing some black and blue discoloration of her finger downstream from the swollen area. She is at assisted living and nurses and/or nurses aides have been looking at it and apparently she has an ultrasound scheduled for later this week, but when they saw the black and blue today, she was told that it cannot wait and so she was sent to the ER. She states this is the first time provider has seen this. She denies there being an IV or anything else obvious in this area before including 2 months ago. [facility] Medical History ESRD on dialysis History of stress test History of echocardiogram History of transesophageal echocardiography (HONG) History of TIA (transient ischemic attack) History of myocardial infarction Diabetes mellitus type 2 with complications Non-pressure chronic ulcer of ankle with fat layer exposed Secondary hyperparathyroidism Non-pressure chronic ulcer of right ankle with necrosis of muscle Non-pressure chronic ulcer of left ankle with necrosis of muscle Adverse effect of synthetic cannabinoids, initial encounter Avery coma scale score 13-15, at arrival to emergency department Acute alteration in mental status Short Achilles tendon (acquired), left ankle Short Achilles tendon (acquired), right ankle Acquired cavovarus deformity of left foot Acquired cavovarus deformity of right foot Type 2 diabetes mellitus with diabetic polyneuropathy Adult failure to thrive ESRD (end stage renal disease) on dialysis Drowsiness Mental status, decreased Carotid artery stenosis MSSA bacteremia ESRD on hemodialysis Osteomyelitis Anemia in chronic illness Type 2 diabetes mellitus Foot osteomyelitis, left Chronic renal disease, stage 4, severely decreased glomerular filtration rate (GFR) between 15-29 mL/min/1.73 square meter Acute on chronic anemia Chronic ulcer of right foot with necrosis of bone Chronic kidney disease, stage 4 (severe) Diabetes mellitus with diabetic polyneuropathy Diabetic foot ulcers Chronic kidney disease, stage 3b Charcot's joint, right ankle and foot Charcot's joint, left ankle and foot Cellulitis Acute lumbar radiculopathy Essential hypertension Adult failure to thrive COVID-19 (11/19/21) Chronic ulcer of right leg with fat layer exposed Ulcer of left foot with fat layer exposed Chronic ulcer of right foot with fat layer exposed Hyperparathyroidism, secondary renal Iron deficiency anemia Bilateral edema of lower extremity Chronic foot pain Non-pressure chronic 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 layer exposed Debility Charcot's joint of right foot Diabetes Non-smoker Myocardial infarct Hypertension TIA (transient ischemic attack) Amputation foot, bilat Non-pressure chronic ulcer of other part of left foot with fat layer exposed 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 Ulcer of left foot with necrosis of muscle Ulcer of left foot with muscle involvement without evidence of necrosis Anxiety and depression Diabetic infection of left foot Delayed wound healing Non-compliance Diabetic polyneuropathy Ischemic cardiomyopathy Obesity (BMI 30.0-34.9) Acquired varus deformity of left foot Acquired varus deformity of right foot Atherosclerosis of [place] coronary artery of [place] heart without angina pectoris Hemoglobin A1c greater than 9.0% NSTEMI (non-ST elevated myocardial infarction) (09/20/18) GERD (gastroesophageal reflux disease) HLD (hyperlipidemia) Back pain, chronic RLS (restless legs syndrome) Home Medications ?Medication ?Instructions ?Recorded ?Last Taken ?Type paroxetine HCl 20 mg tablet 30 mg PO QHS DEPRESSION 07/07/21 04/07/22 History pantoprazole 40 mg tablet,delayed 40 mg PO BIDCM GERD 07/19/22 Unknown History release levothyroxine 25 mcg tablet 25 mcg PO DAILY thyroid 12/16/23 Unknown History aspirin 81 mg capsule 81 mg PO DAILY blood thinner #30 12/26/23 Unknown Rx caps insulin lispro 100 unit/mL See Protocol subcut TIDAC blood 09/13/24 Unknown History subcutaneous pen (Humalog KwikPen sugar (U-100) Insulin) L.acidophil,salivari-Bifido 1 cap PO 4X/DAY probiotic #0 caps 09/21/24 Unknown Rx bifidum-Strep thermoph 175 mg capsule carvedilol 25 mg tablet 12.5 mg PO QHS blood pressure 12/06/24 Unknown History levetiracetam 500 mg tablet 250 mg PO QHS seizures 12/06/24 Unknown History levetiracetam 500 mg tablet 500 mg PO BID seizures 12/06/24 Unknown History ondansetron HCl 4 mg tablet 4 mg PO Q8H nausea 02/28/25 Unknown History carvedilol 12.5 mg tablet (Coreg) 12.5 mg PO SUTUTHSA 03/18/25 Unknown History hydralazine 100 mg tablet 100 mg PO SUTUTHSA bp 03/18/25 Unknown History melatonin 5 mg capsule 10 mg PO QHS sleep 03/18/25 Unknown History sucralfate 1 gram tablet 1 g PO ACHS indigestion 03/18/25 Unknown History acetaminophen 500 mg capsule 1,000 mg PO QHS PRN pain 04/11/25 Unknown History clobetasol-propionate 1 applic topical BID PRN rash 04/11/25 Unknown History insulin lispro 100 unit/mL 17 unit subcut ACHS blood sugar 04/11/25 Unknown History subcutaneous pen (Humalog KwikPen (U-100) Insulin) gabapentin 300 mg capsule 300 mg PO TID pain 30 days #90 caps 05/02/25 Unknown Rx diazepam 5 mg tablet (Valium) 2.5 mg PO QHS muscle spasm 05/28/25 Unknown History hydralazine 100 mg tablet 100 mg PO BID bp 05/28/25 Unknown History atorvastatin 40 mg tablet (Lipitor) 40 mg PO QHS cholesterol 06/04/25 Unknown History hydroxyzine HCl 25 mg tablet 25 mg PO DAILY 06/04/25 Unknown History methadone 5 mg tablet 2.5 mg PO TID pain 06/04/25 Unknown History cephalexin 500 mg capsule 500 mg PO Q12 #14 CAPSULES 06/24/25 Unknown Rx Allergy/AdvReac Type Severity Reaction Status Date / Time fentanyl Allergy Other Verified 06/24/25 16:19 Penicillins Allergy swelling Verified 06/24/25 16:19 in throat vancomycin Allergy Itching Verified 06/24/25 16:19 metronidazole AdvReac Nausea Verified 06/24/25 16:19 Family History Mother Diabetes CVA (cerebral vascular accident) Brother CAD (coronary artery disease) CABG X 3 Cancer testicular Diabetes Brother CAD (coronary artery disease) CABG X3 Diabetes Brother CAD (coronary artery disease) Stents Diabetes Sister CAD (coronary artery disease) CABG x 3 CVA (cerebral vascular accident) Diabetes Surgical History History of cardiac catheterization History of History of foot surgery History of bilateral carpal tunnel release History of rotator cuff surgery History of coronary artery stent placement (12/31/20) Social History household members: none number of children: 2 current occupational status: disabled Smoking Status: Never smoker alcohol intake: never substance use type: does not use caffeine: Yes Type: carbonated beverages Number of servings: 2 ROS ROS ED Constitutional Constitutional ED: Denies chills or fever(s) Cardiovascular Cardiovascular: Denies chest pain Respiratory/Chest Respiratory/Chest: Denies dyspnea Gastrointestinal Gastrointestinal: Denies abdominal pain Musculoskeletal Musculoskeletal: Reports extremity pain; Denies neck pain Integumentary Reports other Details: poss abscess left hand dorsum ; Denies Abrasions Neurologic Neurologic: Denies paresthesias or weakness EXAM Physical Exam Const Vital Signs: 06/24/25 16:19 Temperature 98.1 F Temperature Source Oral Pulse Rate 72 Respiratory Rate 18 Blood Pressure 153/62 H Blood Pressure Mean 92 Pulse Ox 97 Oxygen Delivery Method Room Air Positive well nourished and well developed General Appearance ED: well developed and NAD Neck full ROM and supple Resp normal respiratory effort Back/Spine normal ROM and normal to inspection Extremity Extremity Narrative: Left distal upper arm AV fistula good thrill, skin is normal-appearing and well-healed there. The rest of the forearm is normal-appearing, all the compartments are soft and nondistended. On the dorsum of her left hand, there is a focal swollen area about 2-3 cm in diameter that would be consistent with an abscess, it is just proximal to the fourth MCPJ, and there is some ecchymosis in fingers 3 and 4, she can move them fine and they are nontender but a little swollen. She can move the hand and her wrist without limitation. The erythematous swollen area is tender mildly fluctuant. Neuro oriented x3, no focal motor deficits and no sensory deficits noted Sensorium / Orientation: alert Psych mental status grossly normal and thought process normal Skin no wounds Rashes: no rashes MDM MDM MDM Narrative Medical decision making narrative: Clinically this is consistent with a focal abscess of the hand and some surrounding cellulitis possibly. She wants to know why she has ecchymosis in this area not really sure and less some nearby capillaries burst and cause some minor bleeding there. She does not have any gross purpura. However the history of this going for weeks and months is not consistent with a focal abscess. I recommend obtaining an x-ray to rule out osteomyelitis and then incision and drainage with antibiotics. Three-view x-rays of the left hand interpretation show no bony involvement or abnormality. Performed incision and drainage, see the procedure note. This was done with needle aspiration, patient declining local analgesia for the procedure. Appear to be hematoma but I am sending the small amount of aspirated contents for culture anyhow and I will still empirically treat her with cephalexin due to what may be cellulitis surrounding the area. If this is hematoma then the ecchymosis around the correlates with that. Procedures Other Procedures Procedure(s): Simple incision and drainage left hand swollen area: After informed consent and a timeout performed, the area was prepped and draped in sterile fashion with chlorhexidine, and an 18-gauge needle was placed directly into the most swollen part of the area, he was redirected several times and only dark blood was able to be aspirated and a very scant amount of the less than 1 cc. Tolerated well from the patient no complications, minimal blood loss afterwards, dressing placed with bacitracin. Aspirated contents sent for culture. Discharge Plan Triage Chief Complaint: Cellulitis ED Provider: Shayne Castro Dx/Rx/DC Orders Clinical Impression: Hematoma of left hand, ESRD (end stage renal disease) on dialysis Prescriptions: New cephalexin 500 mg capsule 500 mg PO Q12 Qty: 14 0RF Rx Instructions: give after dialysis on HD days No Action levetiracetam 500 mg tablet 250 mg PO QHS Rx Instructions: -- 500mg levetiracetam 500 mg tablet 500 mg PO BID ondansetron HCl 4 mg tablet 4 mg PO Q8H paroxetine HCl 20 mg tablet 30 mg PO QHS Patient Comments: TAKE 1 TABLET BY MOUTH EVERY DAY IN THE EVENING pantoprazole 40 mg tablet,delayed release (DR/EC) 40 mg PO BIDCM carvedilol 25 mg tablet 12.5 mg PO QHS insulin lispro [Humalog KwikPen Insulin] 100 unit/mL Insulin Pen See Protocol subcut TIDAC Protocol: 4. Sliding Scale Insulin High-Med Dosing Condition: 150-199 mg/dl = 2 units Condition: 200-259 mg/dl = 4 units Condition: 260-324 mg/dl = 6 units Condition: 325-374 mg/dl = 8 units Condition: 375-409 mg/dl = 10 units Condition: 410-449 mg/dl = 11 units Condition: Greater than 449 call physician Protocol Text: Suggested for: - Patients on Total Daily Insulin Dose of 56-80 units - Patient who are known to be insulin resistant or septic HIGH MEDIUM DOSING ALGORITHM Bhavesh Chris.therm 175 mg Capsule 1 cap PO 4X/DAY Qty: 0 0RF hydralazine 100 mg tablet 100 mg PO BID diazepam [Valium] 5 mg tablet 2.5 mg PO QHS hydroxyzine HCl 25 mg tablet 25 mg PO DAILY Rx Instructions: in afternoon atorvastatin [Lipitor] 40 mg tablet 40 mg PO QHS methadone 5 mg tablet 2.5 mg PO TID levothyroxine 25 mcg tablet 25 mcg PO DAILY Patient Comments: TAKE 1 TABLET BY MOUTH EVERY DAY BEFORE BREAKFAST aspirin 81 mg capsule 81 mg PO DAILY Qty: 30 1RF melatonin 5 mg capsule 10 mg PO QHS carvedilol [Coreg] 12.5 mg tablet 12.5 mg PO SUTUTHSA Rx Instructions: must administer with a meal/food DO NOT ADMINISTER BEFORE DIALYSIS hydralazine 100 mg tablet 100 mg PO SUTUTHSA sucralfate 1 gram Tablet 1 g PO ACHS acetaminophen 500 mg capsule 1,000 mg PO QHS PRN (Reason: pain) clobetasol-propionate 1 applic topical BID PRN (Reason: rash) insulin lispro [Humalog KwikPen Insulin] 100 unit/mL insulin pen 17 unit subcut ACHS gabapentin 300 mg capsule 300 mg PO TID 30 Days Qty: 90 0RF Primary Care Provider: Pat Hughes TILE MECHANIC Referrals: Pat Hughes TILE MECHANIC, TILE MECHANIC-C [Primary Care Provider] - As soon as possible (for continued monitoring) Activity Restrictions/Additional Instructions: Scant amount of aspirated contents of the area consistent with hematoma as it is dark blood, and if this is hematoma the etiology is unknown but it explains the bruising in the finger downstream. Infections usually spread upwards but still treating with antibiotics just in case. Culture of the aspirated contents was sent and results should be available in a couple days. Print Language: Togolese Disposition Disposition: Home, Self Care
--- NOTE | 2025-06-24 17:15 | RAD_ITS ---
EXAM: XR Left Hand Complete, 3 or More Views CLINICAL INDICATION: PAIN/SWELLING TECHNIQUE: Frontal, lateral and oblique views of the left hand. COMPARISON: No relevant prior studies available. FINDINGS: BONES/JOINTS: Mild degenerative changes of the intercarpal joint. Moderate degenerative change of the 1st carpometacarpal joint. No acute fracture. No dislocation. SOFT TISSUES: Soft tissue swelling. RAD/Hand Min 3 Views IMPRESSION: Degenerative changes as above. Reading Location: [id number]
[2025-06-24] MEDS: Lidocaine 1% (20 ml mdv) 20 ML Vial INFILT (17:53)
[2025-06-24 18:26] VITALS: BP 156/73; PULSE 79; RESP 18; TEMP 36.6; O2SAT 100
== END 2025-06-24 18:29 | disposition home or self-care (01) ==
PROVIDERS: Emergency Provider Emergency Medicine; PCP Nurse Practitioner Adult Health; Visit Provider Emergency Medicine
DX: S60.222A Contusion of left hand, initial encounter (principal); I12.0 Hypertensive chronic kidney disease with stage 5 chronic kidney disease or end stage renal disease; N18.6 End stage renal disease; E11.22 Type 2 diabetes mellitus with diabetic chronic kidney disease; E11.42 Type 2 diabetes mellitus with diabetic polyneuropathy; Z79.4 Long term (current) use of insulin; I25.5 Ischemic cardiomyopathy; I25.10 Atherosclerotic heart disease of native coronary artery without angina pectoris; E78.5 Hyperlipidemia, unspecified; I25.2 Old myocardial infarction; Z79.82 Long term (current) use of aspirin; Z79.899 Other long term (current) drug therapy; Z86.73 Personal history of transient ischemic attack (TIA), and cerebral infarction without residual deficits; X58.XXXA Exposure to other specified factors, initial encounter; Z86.16 Personal history of COVID-19
CPT/HCPCS: 73130; 87070; 87205; 99282

== ENCOUNTER → 2025-06-26 | Outpatient (CLI) | payer MEDICARE, MEDICAID, SELFPAY ==
[2018-09-21 13:23] VITALS: BMI 29.3
--- NOTE | 2025-06-26 12:49 | AVDS_ITS ---
Reason For Study Reason For Study: Left AVF, edema LEFT Left Brachiobasilic AVF Inflow, 233.7/106.6 cm/sec Inflow, 1322 ml/min Prox anastamosis, 589.1/202.2 cm/sec Prox anastamosis, 1499 ml/min Prox graft, 68.8/30.4 cm/sec Prox graft, 769.8 ml/min Branch noted at prox graft, 392.4 cm/sec and 1104 ml/min. Mid graft, 66.8/21.2 cm/sec Mid graft, 567.9 ml/min Dist graft, 587.9/286.7 cm/sec Dist graft, 2842 ml/min Outflow, 72.4/30.4 cm/sec Outflow, 591.1 ml/min. VL/AV Fistula/Dialysis Graft Scan Interpretation Summary Elevated velocities at proximal anastomosis, unchanged from prior study. Elevated velocities at distal consistent with stenosis. Large branch mid fistula with significant flow volume. Adequate flow volume and caliber. Ordering Physician: Ella Sandhu Referring Physician: Pat Hughes Performed By: Erika Tubbs RVT
== END | disposition home or self-care (01) ==
LOC: CVS 12:48
PROVIDERS: PCP Nurse Practitioner Adult Health; Referring Provider Physician Assistant; Visit Provider Physician Assistant
DX: I77.0 Arteriovenous fistula, acquired (principal); R60.0 Localized edema
CPT/HCPCS: 93990

== ENCOUNTER 2025-07-03 13:36 | Outpatient (RCR) | payer MEDICARE, MEDICAID, SELFPAY ==
[2018-09-21 13:23] VITALS: BMI 29.3
[2025-07-03 13:38] VITALS: BP 164/87; PULSE 69; RESP 16; TEMP 36.5
--- NOTE | 2025-07-03 14:14 | PCM.WC.HP ---
History of Present Illness Date of Service: 07/03/25 Chief Complaint: right foot ulcer left foot ulcer History of Wound: 59-year-old female with end-stage renal disease, poorly controlled type 2 diabetes history of bilateral nonhealing ulcerations requiring amputation presents for chronic right foot ulceration in setting of varus deformity and peripheral neuropathy. Patient denies constitutional symptoms. Patient notes some increased swelling today due to dressing bunching up. Patient denies pain to wound site. Patient has no other complaints. Progress of Wound: Patient is a 60-year-old diabetic female presenting to wound care center today for evaluation of full-thickness wound to the right lateral ankle. Patient has been lost to follow-up and is represent today for chronic wound to the lateral aspect of the right ankle secondary to her Charcot foot deformity. Patient has been seen at [facility] for [place] boot and wearing diabetic shoe to the left foot. She also was seen by Dr. Guadarrama a few weeks ago where he said that she has not a surgical candidate due to her deformity of the right lower extremity. Patient was referred to the wound care center by the nurse practitioner at her assisted living location for expert wound care treatment to help get her wound to heal. She denies trauma. Denies constitutional symptoms. No other pedal complaints at this time. [facility] Medical History ESRD on dialysis History of stress test History of echocardiogram History of transesophageal echocardiography (HONG) History of TIA (transient ischemic attack) History of myocardial infarction Diabetes mellitus type 2 with complications Non-pressure chronic ulcer of ankle with fat layer exposed Secondary hyperparathyroidism Non-pressure chronic ulcer of right ankle with necrosis of muscle Non-pressure chronic ulcer of left ankle with necrosis of muscle Adverse effect of synthetic cannabinoids, initial encounter [place] coma scale score 13-15, at arrival to emergency department Acute alteration in mental status Short Achilles tendon (acquired), left ankle Short Achilles tendon (acquired), right ankle Acquired cavovarus deformity of left foot Acquired cavovarus deformity of right foot Type 2 diabetes mellitus with diabetic polyneuropathy Adult failure to thrive ESRD (end stage renal disease) on dialysis Drowsiness Mental status, decreased Carotid artery stenosis MSSA bacteremia ESRD on hemodialysis Osteomyelitis Anemia in chronic illness Type 2 diabetes mellitus Foot osteomyelitis, left Chronic renal disease, stage 4, severely decreased glomerular filtration rate (GFR) between 15-29 mL/min/1.73 square meter Acute on chronic anemia Chronic ulcer of right foot with necrosis of bone Chronic kidney disease, stage 4 (severe) Diabetes mellitus with diabetic polyneuropathy Diabetic foot ulcers Chronic kidney disease, stage 3b Charcot's joint, right ankle and foot Charcot's joint, left ankle and foot Cellulitis Acute lumbar radiculopathy Essential hypertension Adult failure to thrive COVID-19 (08/28/21) Chronic ulcer of right leg with fat layer exposed Ulcer of left foot with fat layer exposed Chronic ulcer of right foot with fat layer exposed Hyperparathyroidism, secondary renal Iron deficiency anemia Bilateral edema of lower extremity Chronic foot pain Non-pressure chronic 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 layer exposed Debility Charcot's joint of right foot Diabetes Non-smoker Myocardial infarct Hypertension TIA (transient ischemic attack) Amputation foot, bilat Non-pressure chronic ulcer of other part of left foot with fat layer exposed 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 Ulcer of left foot with necrosis of muscle Ulcer of left foot with muscle involvement without evidence of necrosis Anxiety and depression Diabetic infection of left foot Delayed wound healing Non-compliance Diabetic polyneuropathy Ischemic cardiomyopathy Obesity (BMI 30.0-34.9) Acquired varus deformity of left foot Acquired varus deformity of right foot Atherosclerosis of [place] coronary artery of [place] heart without angina pectoris Hemoglobin A1c greater than 9.0% NSTEMI (non-ST elevated myocardial infarction) (09/20/18) GERD (gastroesophageal reflux disease) HLD (hyperlipidemia) Back pain, chronic RLS (restless legs syndrome) Home Medications Medication Instructions Recorded Last Taken Type pantoprazole 40 mg tablet,delayed 40 mg PO BIDCM GERD 07/19/22 Unknown History release levothyroxine 25 mcg tablet 25 mcg PO DAILY thyroid 12/16/23 Unknown History aspirin 81 mg capsule 81 mg PO DAILY blood thinner #30 12/26/23 Unknown Rx caps insulin lispro 100 unit/mL See Protocol subcut ACHS blood 09/13/24 Unknown History subcutaneous pen (Humalog KwikPen sugar (U-100) Insulin) L.acidophil,salivari-Bifido 1 cap PO 4X/DAY probiotic #0 caps 09/21/24 Unknown Rx bifidum-Strep thermoph 175 mg capsule carvedilol 25 mg tablet 12.5 mg PO QHS blood pressure 12/06/24 Unknown History levetiracetam 500 mg tablet 500 mg PO BID seizures 12/06/24 Unknown History ondansetron HCl 4 mg tablet 4 mg PO Q8H PRN nausea and vomiting 02/28/25 Unknown History carvedilol 12.5 mg tablet (Coreg) 12.5 mg PO SUTUTHSA 03/18/25 Unknown History hydralazine 100 mg tablet 100 mg PO BID bp 03/18/25 Unknown History melatonin 5 mg capsule 5 mg PO QHS sleep 03/18/25 Unknown History sucralfate 1 gram tablet 1 g PO ACHS indigestion 03/18/25 Unknown History acetaminophen 500 mg capsule 1,000 mg PO QHS PRN pain 04/11/25 Unknown History clobetasol-propionate 1 applic topical BID PRN rash 04/11/25 Unknown History insulin lispro 100 unit/mL 5 unit subcut ACHS blood sugar 04/11/25 Unknown History subcutaneous pen (Humalog KwikPen (U-100) Insulin) gabapentin 300 mg capsule 300 mg PO TID pain 30 days #90 caps 05/02/25 Unknown Rx diazepam 5 mg tablet (Valium) 2.5 mg PO QHS muscle spasm 05/28/25 Unknown History hydralazine 100 mg tablet 100 mg PO SUTUTHSA bp 05/28/25 Unknown History atorvastatin 40 mg tablet (Lipitor) 40 mg PO QHS cholesterol 06/04/25 Unknown History hydroxyzine HCl 25 mg tablet 25 mg PO DAILY 06/04/25 Unknown History methadone 5 mg tablet 2.5 mg PO BID PRN pain 06/04/25 Unknown History aspirin 81 mg tablet,delayed 81 mg PO DAILY 06/24/25 Unknown History release (Enteric Coated Aspirin) cephalexin 500 mg capsule 500 mg PO Q12 #14 CAPSULES 06/24/25 Unknown Rx cholecalciferol (vitamin D3) 50 50 mcg PO DAILY 06/24/25 Unknown History mcg (2,000 unit) capsule dextran 70-hypromellose 0.1 %-0.3 1 drp EACH EYE QHS PRN dry eye(s) 06/24/25 Unknown History % eye drops (GenTeal Tears Mild) ekzeufww-ldozcuj-wxbtzre 24 24 g PO PER PKG DIR PRN blood sugar 06/24/25 Unknown History gram/31 gram oral gel (Insta-Glucose (with dextrin)) diazepam 2 mg tablet 2 mg PO QHS 06/24/25 Unknown History flash glucose sensor (FreeStyle 06/24/25 Unknown History Puneet 2 Sensor kit) folic acid 800 mcg tablet 0.8 mg PO DAILY 06/24/25 Unknown History levetiracetam 250 mg tablet 250 mg PO .COMPLEX 06/24/25 Unknown History melatonin 10 mg capsule 10 mg PO QHS 06/24/25 Unknown History paroxetine HCl 30 mg tablet 30 mg PO QHS 06/24/25 Unknown History Allergy/AdvReac Type Severity Reaction Status Date / Time fentanyl Allergy Other Verified 06/24/25 16:19 Penicillins Allergy swelling Verified 06/24/25 16:19 in throat vancomycin Allergy Itching Verified 06/24/25 16:19 metronidazole AdvReac Nausea Verified 06/24/25 16:19 Family History Mother Diabetes CVA (cerebral vascular accident) Brother CAD (coronary artery disease) CABG X 3 Cancer testicular Diabetes Brother CAD (coronary artery disease) CABG X3 Diabetes Brother CAD (coronary artery disease) Stents Diabetes Sister CAD (coronary artery disease) CABG x 3 CVA (cerebral vascular accident) Diabetes Surgical History History of cardiac catheterization History of History of foot surgery History of bilateral carpal tunnel release History of rotator cuff surgery History of coronary artery stent placement (12/31/20) Social History household members: none number of children: 2 current occupational status: disabled Smoking Status: Never smoker alcohol intake: never substance use type: does not use caffeine: Yes Type: carbonated beverages Number of servings: 2 Vital Signs Vital Signs Vital Signs: 07/03/25 13:38 Temperature 97.7 F L Temperature Source Temporal Pulse Rate 69 Respiratory Rate 16 Blood Pressure 164/87 H Blood Pressure Mean 112 Blood Pressure Source Monitor Blood Pressure Position Sitting Blood Pressure Location Right Arm Oxygen Delivery Method Room Air Physical Exam Narrative Vascular: DP and PT pulses are faintly palpable to right lower extremity. CFT is brisk. No erythema. Skin temperature gradient is warm to warm from proximal ankle to distal digits right lower extremity. Neurological: Light touch is intact. Protective station is absent. Dermatological: Full-thickness wound to the lateral right ankle measuring 4.0 x 1.5 x 0.1 cm. Wound base is granular with no sign of infection. No erythema or drainage. Excisional debridement down to and including subcutaneous tissue with a number 5 mm dermal curette to the full-thickness wound to the lateral right ankle done without incident. Predebridement measurement was 3.8 x 1.4 x 0.1 cm. Postdebridement measurement is 4.0 x 1.5 x 0.1 cm. Musculoskeletal: Charcot foot deformity appreciated to the level of the ankle of the right lower extremity. Varus deformity is also noted at the level of the ankle. No pain on palpation of the full-thickness wound to the right ankle. No pain with calf pressure. Debridement Note Debridement Note Debridement Free Text: Excisional debridement down to and including subcutaneous tissue with a number 5 mm dermal curette to the full-thickness wound to the lateral right ankle done without incident. Predebridement measurement was 3.8 x 1.4 x 0.1 cm. Postdebridement measurement is 4.0 x 1.5 x 0.1 cm. Post-Debridement Measurements and Additional Note: Post-Debridement Measurements/Treatment - Nurse 1 - General Ulcer Assessment Start: 07/03/25 13:38 Freq: Status: Active Protocol: SHAINCE Activity Type Activity Date Activity User E-sign Co-sign Detail Recorded Client Recorded Date Recorded By Document 07/03/25 13:38 [id number] 07/03/25 13:46 07/03/25 13:38 - Today's Visit Information Type of service Initial Visit Arrival Mode Wheelchair Transfer Assistance None Patient Identification Verified (Name & Yes ) Patient Requires Transmission-Based No Precautions Vital Signs Temperature (97.8 F-99.1 F) 97.7 F L Temperature Source Temporal Pulse Rate (60-100) 69 Pulse Location Monitor Respiratory Rate (12-18) 16 Respiratory rate source Observation Oxygen Delivery Method Room Air Blood Pressure (90/60-120/80) 164/87 H Blood Pressure Mean 112 Source Monitor Position Sitting Blood Pressure Location Right Arm History Since Last Visit- (Skip if this is Patient's initial visit) Left Footwear Regular Shoe Right Footwear No Footwear Pain Scale: 0-10 Numeric Is Patient Pain Free? Yes Culture/Protestant/Barrel Polisher Inside Cultural/Protestant Needs that may affect No Treatment Plan Would you allow our hospital [facility] philosophy professor to No meet you for the purpose of spiritual/ emotional support? Barrel Polisher Inside to contact place of [facility] No WC - Nurse 1 - General Ulcer Measurement Start: 07/03/25 13:38 Freq: Status: Active Protocol: Activity Type Activity Date Activity User E-sign Co-sign Detail Recorded Client Recorded Date Recorded By Document 07/03/25 13:38 [id number] 07/03/25 13:46 07/03/25 13:38 Wound Center Nurse 1 Right lateral plantar -Current Size (cm) - Length 0.1 -Current Size (cm) - Width 0.1 -Current Size (cm) - Depth 0.1 -Total Square Cm 0.01 -Photo Taken No -Exudate Amt None Present -Temperature (Natacha-wound Skin No Abnormality Appearance) (Pt Warm) -Tenderness on Palpation (Natacha-wound No Skin Appearance) -Ulcer Cleansing Soap and Water -Foul Odor after Cleansing No -Anesthetic Used 5% Lidocaine Gel -Wound Comment(s) scabbed over Right lateral ankle, inferior -Current Size (cm) - Length 1.3 -Current Size (cm) - Width 0.3 -Current Size (cm) - Depth 0.1 -Total Square Cm 0.39 -Date of Last Picture (Recall this 07/03/25 field) -Photo Taken Yes -Tunneling No -Undermining/Tunneling No -Circular Undermining No -Exudate Amt Medium -Exudate Type Serosanguineous -Wound Margin Distinct, Outline Attached -Granulation Amt Small (1-33%) -Slough/Fibrin Yes -Necrosis Amt Medium (34-66%) -Necrotic Tissue Type Adherent Slough -Texture (Natacha-wound Skin Appearance) Assessed -Moisture (Natacha-wound Skin Appearance) Assessed -Color (Natacha-wound Skin Appearance) Assessed -Temperature (Natacha-wound Skin No Abnormality Appearance) (Pt Warm) -Tenderness on Palpation (Natacha-wound No Skin Appearance) -Ulcer Cleansing Soap and Water -Foul Odor after Cleansing No -Anesthetic Used 5% Lidocaine Gel #30 Right Lateral Ankle -Combined with other wound No -Current Size (cm) - Length 1.4 -Current Size (cm) - Width 1.4 -Current Size (cm) - Depth 0.1 -Total Square Cm 1.96 -Date of Last Picture (Recall this 07/03/25 field) -Photo Taken Yes -Tunneling No -Undermining/Tunneling No -Circular Undermining No -Exudate Amt Medium -Exudate Type Serosanguineous -Wound Margin Distinct, Outline Attached -Granulation Amt None Present (0 %) -Slough/Fibrin Yes -Necrosis Amt Medium (34-66%) -Necrotic Tissue Type Adherent Slough -Texture (Natacha-wound Skin Appearance) Assessed -Moisture (Natacha-wound Skin Appearance) Assessed -Color (Natacha-wound Skin Appearance) Assessed -Temperature (Natacha-wound Skin No Abnormality Appearance) (Pt Warm) -Tenderness on Palpation (Natacha-wound No Skin Appearance) -Ulcer Cleansing Soap and Water -Foul Odor after Cleansing No -Anesthetic Used 5% Lidocaine Gel Lower Limb Edema Present No Right Calf (cm) 33 Right Ankle (cm) 22 WC - Nurse 2 - General Ulcer CM Notes Start: 07/03/25 13:38 Freq: Status: Active Protocol: Activity Type Activity Date Activity User E-sign Co-sign Detail Recorded Client Recorded Date Recorded By Document 07/03/25 14:04 [email or web address] [id number] 07/03/25 14:07 LISSY 07/03/25 14:04 Wound Center Nurse 2 #30 Right Lateral Ankle -Time 14:05 -Correct Patient Yes -Correct Side, Site, Position Yes -Correct Procedure Yes -Procedure Performed Yes -Type of Procedure Debridement -Clinical Debridement Subcutaneous -Tissue Removed Subcutaneous -Post Debridement (cm) - Length 4 -Post Debridement (cm) - Width 1.5 -Post Debridement (cm) - Depth 0.1 -Total Square (Post) (cm) 6.0 -Area of Debridement (cm) - Length 4 -Area of Debridement (cm) - Width 1.5 -Total Square (Area) (cm) 6.0 -Tunneling No -Undermining/Tunneling No -Circular Undermining No -Wound/Ulcer Outcome Not Healed -Ulcer Cleansing Rinsed/ Irrigated with Saline -Foul Odor after Cleansing No -Bioengineered Tissue No -Bleeding Controlled with Pressure -Treatment Response Procedure Tolerated Well -Offloading No -Debridement - Subq, 1st 20sq cm Yes Pain Scale: 0-10 Numeric Is Patient Pain Free? Yes Assessment/Plan Assessment/Plan (1) Non-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: CODE(S): L97.312 - Non-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 PLAN: Patient was examined and evaluated. All findings were discussed with the patient. All questions were answered to the patient's satisfaction. Excisional debridement down to and including subcutaneous tissue with a number 5 mm dermal curette to the full-thickness wound to the lateral right ankle done without incident. Predebridement measurement was 3.8 x 1.4 x 0.1 cm. Postdebridement measurement is 4.0 x 1.5 x 0.1 cm. The area was wiped clean and patted dry. AMD pad was applied followed by 3M multilayer compression bandage. She will leave clean dry and intact. Educated patient continue to be nonweightbearing with wheelchair unless she can get her [place] boot donned then she can be weightbearing as tolerated with assistance. Educated patient to bring in her [place] boot so I can evaluate it at her follow-up in 1 week. No plan for surgical intervention at this time as she still has open full-thickness wound to the lateral right ankle. Surgical correction of the right foot would need to be done once healed with intramedullary elinor and external fixator. But we will plan for this at a later date. Follow-up at the wound care center with Dr. Kowalski in 1 week. (2) Charcot joint of right foot: CODE(S): M14.671 - Charcot's joint, right ankle and foot (3) Other specified peripheral vascular diseases: CODE(S): I73.89 - Other specified peripheral vascular diseases
--- NOTE | 2025-07-05 09:00 | WC ---
PHOTO-RIGHT ANKLE 07/03/25
== END 2025-07-09 23:59 | disposition home or self-care (01) ==
LOC: WC 13:36
PROVIDERS: PCP Nurse Practitioner Adult Health; Referring Provider Podiatrist; Visit Provider Podiatrist Foot & Ankle Surgery
DX: E11.622 Type 2 diabetes mellitus with other skin ulcer (principal); L97.312 Non-pressure chronic ulcer of right ankle with fat layer exposed; E11.610 Type 2 diabetes mellitus with diabetic neuropathic arthropathy; E11.42 Type 2 diabetes mellitus with diabetic polyneuropathy; E11.51 Type 2 diabetes mellitus with diabetic peripheral angiopathy without gangrene
CPT/HCPCS: 11042; 29581; 99213; 99214; G0463

== ENCOUNTER 2025-07-10 03:29 | Emergency (ER) | payer MEDICARE, MEDICAID, SELFPAY ==
[2018-09-21 13:23] VITALS: BMI 29.3
[2025-07-10 03:30] VITALS: BP 157/72; PULSE 74; RESP 19; TEMP 36.6; O2SAT 93; BMI 29.3
[2025-07-10 03:35] VITALS: BP 157/72; PULSE 74; RESP 19; TEMP 36.6; O2SAT 91
[2025-07-10 04:35] VITALS: BP 156/70; PULSE 75; RESP 18; TEMP 36.6; O2SAT 91
[2025-07-10] MEDS: Lidocaine 2% /Epi 1:100 (20ml) 20 ML VIAL INFILT (04:38)
--- NOTE | 2025-07-10 05:06 | EDS_ITS ---
HPI History of Present Illness Chief Complaint: General Illness Informant: patient Narrative Narrative: Patient is a 60-year-old female with past medical history of end-stage renal disease on dialysis as well as insulin-dependent diabetes and chronic pain. She was seen recently secondary to a small nodule on her left hand. At that time there was needle aspiration and it appeared more bloody in nature consistent with hematoma. She was discharged back to the snf. She states there has been no trauma but she has noticed that the area has returned despite her taking antibiotics and secondary to this she presents for evaluation [facility] Medical History ESRD on dialysis History of stress test History of echocardiogram History of transesophageal echocardiography (HONG) History of TIA (transient ischemic attack) History of myocardial infarction Diabetes mellitus type 2 with complications Non-pressure chronic ulcer of ankle with fat layer exposed Secondary hyperparathyroidism Non-pressure chronic ulcer of right ankle with necrosis of muscle Non-pressure chronic ulcer of left ankle with necrosis of muscle Adverse effect of synthetic cannabinoids, initial encounter [place] coma scale score 13-15, at arrival to emergency department Acute alteration in mental status Short Achilles tendon (acquired), left ankle Short Achilles tendon (acquired), right ankle Acquired cavovarus deformity of left foot Acquired cavovarus deformity of right foot Type 2 diabetes mellitus with diabetic polyneuropathy Adult failure to thrive ESRD (end stage renal disease) on dialysis Drowsiness Mental status, decreased Carotid artery stenosis MSSA bacteremia ESRD on hemodialysis Osteomyelitis Anemia in chronic illness Type 2 diabetes mellitus Foot osteomyelitis, left Chronic renal disease, stage 4, severely decreased glomerular filtration rate (GFR) between 15-29 mL/min/1.73 square meter Acute on chronic anemia Chronic ulcer of right foot with necrosis of bone Chronic kidney disease, stage 4 (severe) Diabetes mellitus with diabetic polyneuropathy Diabetic foot ulcers Chronic kidney disease, stage 3b Charcot's joint, right ankle and foot Charcot's joint, left ankle and foot Cellulitis Acute lumbar radiculopathy Essential hypertension Adult failure to thrive COVID-19 (08/28/21) Chronic ulcer of right leg with fat layer exposed Ulcer of left foot with fat layer exposed Chronic ulcer of right foot with fat layer exposed Hyperparathyroidism, secondary renal Iron deficiency anemia Bilateral edema of lower extremity Chronic foot pain Non-pressure chronic 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 layer exposed Debility Charcot's joint of right foot Diabetes Non-smoker Myocardial infarct Hypertension TIA (transient ischemic attack) Amputation foot, bilat Non-pressure chronic ulcer of other part of left foot with fat layer exposed 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 Ulcer of left foot with necrosis of muscle Ulcer of left foot with muscle involvement without evidence of necrosis Anxiety and depression Diabetic infection of left foot Delayed wound healing Non-compliance Diabetic polyneuropathy Ischemic cardiomyopathy Obesity (BMI 30.0-34.9) Acquired varus deformity of left foot Acquired varus deformity of right foot Atherosclerosis of [place] coronary artery of [place] heart without angina pectoris Hemoglobin A1c greater than 9.0% NSTEMI (non-ST elevated myocardial infarction) (09/20/18) GERD (gastroesophageal reflux disease) HLD (hyperlipidemia) Back pain, chronic RLS (restless legs syndrome) Home Medications ?Medication ?Instructions ?Recorded ?Last Taken ?Type pantoprazole 40 mg tablet,delayed 40 mg PO BIDCM GERD 07/19/22 Unknown History release levothyroxine 25 mcg tablet 25 mcg PO DAILY thyroid Unknown History insulin lispro 100 unit/mL See Protocol subcut ACHS bl ood 09/13/24 Unknown History subcutaneous pen (Humalog KwikPen sugar (U-100) Insulin) L.acidophil,salivari-Bifido 1 cap PO 4X/DAY probiotic #0 caps 09/21/24 Unknown Rx bifidum-Strep thermoph 175 mg capsule carvedilol 25 mg tablet 12.5 mg PO QHS blood pressur e 12/06/24 Unknown History levetiracetam 500 mg tablet 500 mg PO BID seizures Unknown History ondansetron HCl 4 mg tablet 4 mg PO Q8H PRN nausea and vomiting 02/28/25 Unknown History carvedilol 12.5 mg tablet (Coreg) 12.5 mg PO SUTUTHSA 03/18/25 Unknown History hydralazine 100 mg tablet 100 mg PO BID bp 03/18/25 Un known History melatonin 5 mg capsule 5 mg PO QHS sleep 03/18/25 U nknown History sucralfate 1 gram tablet 1 g PO ACHS indigestion 07/04 Unknown History acetaminophen 500 mg capsule 1,000 mg PO QHS PRN pain 04/11/25 Unknown History clobetasol-propionate 1 applic topical BID PRN jerry h 04/11/25 Unknown History insulin lispro 100 unit/mL 5 unit subcut ACHS blood srinivasan gar 04/11/25 Unknown History subcutaneous pen (Humalog KwikPen (U-100) Insulin) gabapentin 300 mg capsule 300 mg PO TID pain 30 days # 90 caps 05/02/25 Unknown Rx hydralazine 100 mg tablet 100 mg PO SUTUTHSA bp Unknown History atorvastatin 40 mg tablet (Lipitor) 40 mg PO QHS jayashree sterol 06/04/25 Unknown History hydroxyzine HCl 25 mg tablet 25 mg PO DAILY 06/04/25 U nknown History methadone 5 mg tablet 2.5 mg PO BID PRN pain 06/04 Unknown History aspirin 81 mg tablet,delayed 81 mg PO DAILY 06/24/25 U nknown History release (Enteric Coated Aspirin) [id number] 24 24 g PO PER PKG DIR PRN bl ood sugar 06/24/25 Unknown History
--- NOTE | 2025-07-10 05:06 | EX.ED.DYSGE1 ---
HPI History of Present Illness Chief Complaint: General Illness Informant: patient Narrative Narrative: Patient is a 60-year-old female with past medical history of end-stage renal disease on dialysis as well as insulin-dependent diabetes and chronic pain. She was seen recently secondary to a small nodule on her left hand. At that time there was needle aspiration and it appeared more bloody in nature consistent with hematoma. [facility]. She states there has been no trauma but she has noticed that the area has returned despite her taking antibiotics and secondary to this she presents for evaluation [facility] Medical History ESRD on dialysis History of stress test History of echocardiogram History of transesophageal echocardiography (HONG) History of TIA (transient ischemic attack) History of myocardial infarction Diabetes mellitus type 2 with complications Non-pressure chronic ulcer of ankle with fat layer exposed Secondary hyperparathyroidism Non-pressure chronic ulcer of right ankle with necrosis of muscle Non-pressure chronic ulcer of left ankle with necrosis of muscle Adverse effect of synthetic cannabinoids, initial encounter [place] coma scale score 13-15, at arrival to emergency department Acute alteration in mental status Short Achilles tendon (acquired), left ankle Short Achilles tendon (acquired), right ankle Acquired cavovarus deformity of left foot Acquired cavovarus deformity of right foot Type 2 diabetes mellitus with diabetic polyneuropathy Adult failure to thrive ESRD (end stage renal disease) on dialysis Drowsiness Mental status, decreased Carotid artery stenosis MSSA bacteremia ESRD on hemodialysis Osteomyelitis Anemia in chronic illness Type 2 diabetes mellitus Foot osteomyelitis, left Chronic renal disease, stage 4, severely decreased glomerular filtration rate (GFR) between 15-29 mL/min/1.73 square meter Acute on chronic anemia Chronic ulcer of right foot with necrosis of bone Chronic kidney disease, stage 4 (severe) Diabetes mellitus with diabetic polyneuropathy Diabetic foot ulcers Chronic kidney disease, stage 3b Charcot's joint, right ankle and foot Charcot's joint, left ankle and foot Cellulitis Acute lumbar radiculopathy Essential hypertension Adult failure to thrive COVID-19 (08/28/21) Chronic ulcer of right leg with fat layer exposed Ulcer of left foot with fat layer exposed Chronic ulcer of right foot with fat layer exposed Hyperparathyroidism, secondary renal Iron deficiency anemia Bilateral edema of lower extremity Chronic foot pain Non-pressure chronic 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 layer exposed Debility Charcot's joint of right foot Diabetes Non-smoker Myocardial infarct Hypertension TIA (transient ischemic attack) Amputation foot, bilat Non-pressure chronic ulcer of other part of left foot with fat layer exposed 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 Ulcer of left foot with necrosis of muscle Ulcer of left foot with muscle involvement without evidence of necrosis Anxiety and depression Diabetic infection of left foot Delayed wound healing Non-compliance Diabetic polyneuropathy Ischemic cardiomyopathy Obesity (BMI 30.0-34.9) Acquired varus deformity of left foot Acquired varus deformity of right foot Atherosclerosis of [place] coronary artery of [place] heart without angina pectoris Hemoglobin A1c greater than 9.0% NSTEMI (non-ST elevated myocardial infarction) (09/20/18) GERD (gastroesophageal reflux disease) HLD (hyperlipidemia) Back pain, chronic RLS (restless legs syndrome) Home Medications ?Medication ?Instructions ?Recorded ?Last Taken ?Type pantoprazole 40 mg tablet,delayed 40 mg PO BIDCM GERD 07/19/22 Unknown History release levothyroxine 25 mcg tablet 25 mcg PO DAILY thyroid 12/16/23 Unknown History insulin lispro 100 unit/mL See Protocol subcut ACHS blood 09/13/24 Unknown History subcutaneous pen (Humalog KwikPen sugar (U-100) Insulin) L.acidophil,salivari-Bifido 1 cap PO 4X/DAY probiotic #0 caps 09/21/24 Unknown Rx bifidum-Strep thermoph 175 mg capsule carvedilol 25 mg tablet 12.5 mg PO QHS blood pressure 12/06/24 Unknown History levetiracetam 500 mg tablet 500 mg PO BID seizures 12/06/24 Unknown History ondansetron HCl 4 mg tablet 4 mg PO Q8H PRN nausea and vomiting 02/28/25 Unknown History carvedilol 12.5 mg tablet (Coreg) 12.5 mg PO SUTUTHSA 03/18/25 Unknown History hydralazine 100 mg tablet 100 mg PO BID bp 03/18/25 Unknown History melatonin 5 mg capsule 5 mg PO QHS sleep 03/18/25 Unknown History sucralfate 1 gram tablet 1 g PO ACHS indigestion 03/18/25 Unknown History acetaminophen 500 mg capsule 1,000 mg PO QHS PRN pain 04/11/25 Unknown History clobetasol-propionate 1 applic topical BID PRN rash 04/11/25 Unknown History insulin lispro 100 unit/mL 5 unit subcut ACHS blood sugar 04/11/25 Unknown History subcutaneous pen (Humalog KwikPen (U-100) Insulin) gabapentin 300 mg capsule 300 mg PO TID pain 30 days #90 caps 05/02/25 Unknown Rx hydralazine 100 mg tablet 100 mg PO SUTUTHSA bp 05/28/25 Unknown History atorvastatin 40 mg tablet (Lipitor) 40 mg PO QHS cholesterol 06/04/25 Unknown History hydroxyzine HCl 25 mg tablet 25 mg PO DAILY 06/04/25 Unknown History methadone 5 mg tablet 2.5 mg PO BID PRN pain 06/04/25 Unknown History aspirin 81 mg tablet,delayed 81 mg PO DAILY 06/24/25 Unknown History release (Enteric Coated Aspirin) rojehxhk-tohbpqf-vwmoizv 24 24 g PO PER PKG DIR PRN blood sugar 06/24/25 Unknown History gram/31 gram oral gel (Insta-Glucose (with dextrin)) diazepam 2 mg tablet 2 mg PO QHS 06/24/25 Unknown History flash glucose sensor (FreeStyle 06/24/25 Unknown History Puneet 2 Sensor kit) levetiracetam 250 mg tablet 250 mg PO .COMPLEX 06/24/25 Unknown History melatonin 10 mg capsule 10 mg PO QHS 06/24/25 Unknown History paroxetine HCl 30 mg tablet 30 mg PO QHS 06/24/25 Unknown History Allergy/AdvReac Type Severity Reaction Status Date / Time fentanyl Allergy Other Verified 07/10/25 23:12 Penicillins Allergy swelling Verified 07/10/25 23:12 in throat vancomycin Allergy Itching Verified 07/10/25 23:12 metronidazole AdvReac Nausea Verified 07/10/25 23:12 Family History Mother Diabetes CVA (cerebral vascular accident) Brother CAD (coronary artery disease) CABG X 3 Cancer testicular Diabetes Brother CAD (coronary artery disease) CABG X3 Diabetes Brother CAD (coronary artery disease) Stents Diabetes Sister CAD (coronary artery disease) CABG x 3 CVA (cerebral vascular accident) Diabetes Surgical History History of cardiac catheterization History of History of foot surgery History of bilateral carpal tunnel release History of rotator cuff surgery History of coronary artery stent placement (12/31/20) Social History household members: none number of children: 2 current occupational status: disabled Smoking Status: Never smoker alcohol intake: never substance use type: does not use caffeine: Yes Type: carbonated beverages Number of servings: 2 ROS ROS ED Constitutional Constitutional ED: Denies chills or fever(s) ENT ENT ED: Denies sore throat Cardiovascular Cardiovascular: Denies chest pain Respiratory/Chest Respiratory/Chest: Denies cough or dyspnea Gastrointestinal Gastrointestinal: Denies abdominal pain, diarrhea, nausea or vomiting Musculoskeletal Musculoskeletal: Reports other Details: Positive left hand pain and swelling Integumentary Reports other Details: Positive swelling left hand Neurologic Neurologic: Denies headache(s) Hematologic/Lymphatic Hematologic/Lymphatic: Denies easy bleeding or easy bruising EXAM Physical Exam Const Vital Signs: 07/10/25 03:30 07/10/25 03:30 07/10/25 03:35 Temperature 97.8 F 97.8 F Temperature Source Oral Oral Pulse Rate 74 74 Respiratory Rate 19 H 19 H Respiratory Effort Normal Non-Labored Respiratory Pattern Normal Blood Pressure 157/72 H 157/72 H Blood Pressure Mean 100 100 Pulse Ox 93 91 Oxygen Delivery Method Room Air Room Air 07/10/25 04:35 Temperature 97.8 F Temperature Source Oral Pulse Rate 75 Respiratory Rate 18 Respiratory Effort Respiratory Pattern Blood Pressure 156/70 H Blood Pressure Mean 98 Pulse Ox 91 Oxygen Delivery Method Room Air Positive well nourished and well developed General Appearance ED: well developed HEENT HEENT Narrative: Normocephalic atraumatic Eyes PERRL and EOMs intact bilaterally General Eye ED: Negative for scleral icterus Neck supple and no JVD Resp normal respiratory effort and clear to auscultation bilaterally Resp Narrative: Breath sounds are diminished throughout but overall clear to auscultation without signs of respiratory distress Cardio regular rate and regular rhythm Extremity Extremity Narrative: Left upper extremity has soft tissue swelling localized mainly to the dorsal aspect of the left hand with a 1 x 1 cm fluctuant area on the dorsal aspect near the 2nd and 3rd metacarpal. There is faint erythema at this site. No active discharge or lymphangitic streaking. There is a fistula in place in left upper extremity as well with palpable thrill and good bruit Neuro oriented x3 and CN's II-XII intact bilaterally Sensorium / Orientation: alert Psych mental status grossly normal Skin Skin Narrative: Soft tissue changes of the left hand as documented above MDM MDM MDM Narrative Medical decision making narrative: Patient arrived to the ER hypertensive but has a past medical history of this. She was recently seen for the same issue and at that time there was a needle aspiration and it was sent for culture. The culture results were reviewed and there was no growth which would correlate with the fact the fluid aspirated was bloody in nature and is more hematoma than infectious. Chart review also show she had outpatient fistula ultrasound which showed no acute findings. Therefore this time as she has had a recent culture showing no obvious infection and a recent ultrasound showing no acute findings in the left upper extremity did not feel the need for blood work or imaging studies as patient denied any recent trauma. I did attempt a incision and drainage as there was potential that there is now a secondary infection after the recent needle aspiration. This was performed as documented below. However only blood was expressed from the site which would correlate with hematoma and not a secondary infection. Therefore at this time as she has had a recent negative culture recent negative ultrasound and she is afebrile at this time and there is no pus expressed from the area along the left hand do not feel there is need for further intervention she can [facility] the [facility] and continue outpatient dialysis as well as her chronic medications History & Record Review Discussion w/independent historian: Patient Additional record(s) reviewed:: Prior outpatient record and Prior ED visit Discharge Plan Triage Chief Complaint: General Illness ED Provider: Sergio John Dx/Rx/DC Orders Clinical Impression: Hematoma of left hand, Debility, ESRD (end stage renal disease) on dialysis, Hypertension, Type 2 diabetes mellitus with diabetic polyneuropathy Prescriptions: No Action levetiracetam 500 mg tablet 500 mg PO BID ondansetron HCl 4 mg tablet 4 mg PO Q8H PRN (Reason: nausea and vomiting) pantoprazole 40 mg tablet,delayed release (DR/EC) 40 mg PO BIDCM carvedilol 25 mg tablet 12.5 mg PO QHS insulin lispro [Humalog KwikPen Insulin] 100 unit/mL Insulin Pen See Protocol subcut ACHS Protocol: 6. Sliding Scale Insulin Custom Condition: 150-200 Dose/Route: 2u Condition: 201-250 Dose/Route: 4u Condition: 251-300 Dose/Route: 6u Condition: 301-350 Dose/Route: 8u Condition: 351-400 Dose/Route: 10u Condition: 401-450 Dose/Route: 12u Condition: 451 or above Instruction: call physician Protocol Text: Custom Sliding Scale LJessicaacidoph,saliva-BJessicabif-S.therm 175 mg Capsule 1 cap PO 4X/DAY Qty: 0 0RF hydralazine 100 mg tablet 100 mg PO SUTUTHSA Rx Instructions: do not give on dialysis days hydroxyzine HCl 25 mg tablet 25 mg PO DAILY Rx Instructions: in afternoon atorvastatin [Lipitor] 40 mg tablet 40 mg PO QHS methadone 5 mg tablet 2.5 mg PO BID PRN (Reason: pain) aspirin [Enteric Coated Aspirin] 81 mg tablet,delayed release (DR/EC) 81 mg PO DAILY diazepam 2 mg tablet 2 mg PO QHS levetiracetam 250 mg tablet 250 mg PO .COMPLEX Rx Instructions: 250 mg orally mowefr hs with 500mg; melatonin 10 mg capsule 10 mg PO QHS Patient Comments: mar states pt taking both strengths paroxetine HCl 30 mg tablet 30 mg PO QHS (DME) FreeStyle Puneet 2 Sensor Kit MISCELLANEOUS Patient Comments: [NO ORIGINAL SIG] Insta-Glucose (with dextrin) 24 gram/31 gram gel 24 g PO PER PKG DIR PRN (Reason: blood sugar) Rx Instructions: swallow contents of entire tube; may swallow contents of another tube if no response after 10 minutes bs <60 levothyroxine 25 mcg tablet 25 mcg PO DAILY Patient Comments: TAKE 1 TABLET BY MOUTH EVERY DAY BEFORE BREAKFAST melatonin 5 mg capsule 5 mg PO QHS Patient Comments: mar states pt taking both strengths carvedilol [Coreg] 12.5 mg tablet 12.5 mg PO SUTUTHSA Rx Instructions: must administer with a meal/food DO NOT ADMINISTER BEFORE DIALYSIS hydralazine 100 mg tablet 100 mg PO BID sucralfate 1 gram Tablet 1 g PO ACHS acetaminophen 500 mg capsule 1,000 mg PO QHS PRN (Reason: pain) clobetasol-propionate 1 applic topical BID PRN (Reason: rash) insulin lispro [Humalog KwikPen Insulin] 100 unit/mL insulin pen 5 unit subcut ACHS gabapentin 300 mg capsule 300 mg PO TID 30 Days Qty: 90 0RF Primary Care Provider: Pat Hughes PATTERNMAKER Referrals: Pat Hughes PATTERNMAKER, PATTERNMAKER-C [Primary Care Provider, Medical] Activity Restrictions/Additional Instructions: Only blood was aspirated from the area of swelling on your left hand this is consistent with a collection of blood underneath the skin known as a hematoma. Your x-ray previously revealed no sign of bony injury or signs of infection. The previous fistula ultrasound revealed chronic findings without loss of blood flow. Please continue all your home medications as directed by your doctor and follow-up with her for repeat evaluation. Print Language: Amharic Disposition Disposition: Home, Self Care Discharge Date/Time: 07/10/25 06:47
[2025-07-10 05:25] VITALS: BP 146/83; PULSE 75; RESP 18; TEMP 36.7; O2SAT 91
[2025-07-10 05:30] VITALS: BP 169/75; RESP 16; O2SAT 91
== END 2025-07-10 06:47 | disposition home or self-care (01) ==
LOC: ED 05:12
PROVIDERS: Emergency Provider Emergency Medicine; PCP Nurse Practitioner Adult Health; Visit Provider Emergency Medicine
DX: S60.222A Contusion of left hand, initial encounter (principal); I12.0 Hypertensive chronic kidney disease with stage 5 chronic kidney disease or end stage renal disease; N18.6 End stage renal disease; E11.22 Type 2 diabetes mellitus with diabetic chronic kidney disease; E11.42 Type 2 diabetes mellitus with diabetic polyneuropathy; Z99.2 Dependence on renal dialysis; I25.10 Atherosclerotic heart disease of native coronary artery without angina pectoris; E78.5 Hyperlipidemia, unspecified; K21.9 Gastro-esophageal reflux disease without esophagitis; X58.XXXA Exposure to other specified factors, initial encounter
CPT/HCPCS: 10140; 99284

== ENCOUNTER 2025-07-10 13:35 | Outpatient (RCR) | payer MEDICARE, MEDICAID, SELFPAY ==
[2018-09-21 13:23] VITALS: BMI 29.3
[2025-07-10 13:35] VITALS: BP 137/77; PULSE 75; RESP 16; TEMP 36.3
--- NOTE | 2025-07-10 15:31 | PCM.WC.PN ---
History of Present Illness Date of Service: 07/10/25 Chief Complaint: Right foot ulcer History of Wound: 60-year-old female with end-stage renal disease, poorly controlled type 2 diabetes history of bilateral nonhealing ulcerations requiring amputation presents for chronic right foot ulceration in setting of varus deformity and peripheral neuropathy. Patient denies constitutional symptoms. Patient notes some increased swelling today due to dressing bunching up. Patient denies pain to wound site. Patient has no other complaints. Progress of Wound: Full-thickness wound right foot Subjective Subjective Patient is a 60-year-old diabetic female presenting to wound care center today for follow-up evaluation of full-thickness wound to the right foot. She has been compliant with dressing changes. Patient is presenting with her [place] walking boot today. She admits that her blood sugars well-controlled. She denies trauma. Denies constitutional symptoms. No other pedal complaints at this time. Objective Data Objective Data Vital Signs: Vital Signs Temp Pulse Resp BP O2 Del Method 97.4 F L 75 16 137/77 H Room Air 07/10/25 13:35 07/10/25 13:35 07/10/25 13:35 07/10/25 13:35 07/10/25 13:35 Oxygen Delivery Method Room Air Physical Exam Narrative Vascular: Dorsalis pedis posterior tibial pulses palpable 2 out of 4 to bilateral lower extremity compartments. Neurologic: Absent light touch protective sensation to bilateral lower extremity extending into proximal leg Dermatologic: Evidence of full-thickness wound appreciated to the right lateral foot. Wound measures 3.3 x 1.5 x 0.1 cm. Wound base is granular. No sign of infection. Excisional debridement down to and including subcutaneous tissue with a number 3 mm dermal curette to the right foot lateral full-thickness wound down without incident. Predebridement was 3.0 x 1.2 x 0.1 cm. Placement measurement is 3.3 x 1.5 x 0.1 cm. Musculoskeletal: Cavovarus deformity right lower extremity secondary to Charcot. No pain with calf pressure. Const alert and oriented x3 Debridement Note Debridement Note Debridement Free Text: Excisional debridement down to and including subcutaneous tissue with a number 3 mm dermal curette to the right foot lateral full-thickness wound down without incident. Predebridement was 3.0 x 1.2 x 0.1 cm. Placement measurement is 3.3 x 1.5 x 0.1 cm. Post-Debridement Measurements and Additional Note: Post-Debridement Measurements/Treatment - Nurse 1 - General Ulcer Assessment Start: 07/10/25 13:35 Freq: Status: Active Protocol: SHANICE Activity Type Activity Date Activity User E-sign Co-sign Detail Recorded Client Recorded Date Recorded By Document 07/10/25 13:35 [id number] 07/10/25 13:40 07/10/25 13:35 - Today's Visit Information Type of service Follow-up Visit (Physician/CERTIFIED ADAPTED PHYSICAL EDUCATOR ) Arrival Mode Ambulatory Transfer Assistance None Patient Identification Verified (Name & Yes ) Vital Signs Temperature (97.8 F-99.1 F) 97.4 F L Temperature Source Temporal Pulse Rate (60-100) 75 Pulse Location Monitor Respiratory Rate (12-18) 16 Respiratory rate source Observation Oxygen Delivery Method Room Air Blood Pressure (90/60-120/80) 137/77 H Blood Pressure Mean (mm Hg) 97 Source Monitor Position Sitting Blood Pressure Location Left Arm History Since Last Visit- (Skip if this is Patient's initial visit) Have you changed medications since your No last visit? Any new allergies or adverse reactions No Had a fall/change in ADL's that may No increase risk of falls Signs or symptoms of abuse and/or No neglect since last visit Have you been in the hospital since your No last visit? Has dressing in place as prescribed Yes Has compression in place as prescribed Yes Has offloadiing in place as prescribed Yes Experienced any changes in pain level or No management Left Footwear Regular Shoe Right Footwear Multipodus Splint/Boot Pain Scale: 0-10 Numeric Is Patient Pain Free? Yes Mavis Nurse 1 - General Ulcer Measurement Start: 07/10/25 13:35 Freq: Status: Active Protocol: Activity Type Activity Date Activity User E-sign Co-sign Detail Recorded Client Recorded Date Recorded By Document 07/10/25 13:35 [id number] 07/10/25 13:40 07/10/25 13:35 Wound Center Nurse 1 #23 Right Lateral ankle INFERIOR -Current Size (cm) - Length 3.0 -Current Size (cm) - Width 0.5 -Current Size (cm) - Depth 0.1 -Total Square Cm 1.50 -Photo Taken No -Epithelialization None Present -Tunneling No -Undermining/Tunneling No -Circular Undermining No -Exudate Amt Medium -Exudate Type Yellow/Green -Wound Margin Distinct, Outline Attached -Granulation Amt Medium (34-66%) -Granulation Quality [place] -Slough/Fibrin Yes -Necrosis Amt Small (1-33%) -Necrotic Tissue Type Adherent Slough -Texture (Natacha-wound Skin Appearance) Assessed -Moisture (Natacha-wound Skin Appearance) Assessed, Maceration -Color (Natacha-wound Skin Appearance) No Abnormality, Assessed -Temperature (Natacha-wound Skin No Abnormality Appearance) (Pt Warm) -Tenderness on Palpation (Natacha-wound Yes Skin Appearance) -Ulcer Cleansing Rinsed/ Irrigated with Saline -Foul Odor after Cleansing No -Anesthetic Used 5% Lidocaine Gel #30 Right Lateral Ankle CLUSTER -Current Size (cm) - Length 1.4 -Current Size (cm) - Width 1.4 -Current Size (cm) - Depth 0.1 -Total Square Cm 1.96 -Photo Taken No -Epithelialization Small 1-33% -Tunneling No -Undermining/Tunneling No -Circular Undermining No -Exudate Amt Medium -Exudate Type Yellow/Green -Wound Margin Distinct, Outline Attached -Granulation Amt Medium (34-66%) -Granulation Quality [place] -Slough/Fibrin No -Texture (Natacha-wound Skin Appearance) Assessed -Moisture (Natacha-wound Skin Appearance) Assessed, Maceration -Color (Natacha-wound Skin Appearance) Assessed -Temperature (Natacha-wound Skin No Abnormality Appearance) (Pt Warm) -Tenderness on Palpation (Natacha-wound No Skin Appearance) -Ulcer Cleansing Soap and Water -Foul Odor after Cleansing No -Anesthetic Used 5% Lidocaine Gel WC - Nurse 2 - General Ulcer CM Notes Start: 07/10/25 13:35 Freq: Status: Active Protocol: Activity Type Activity Date Activity User E-sign Co-sign Detail Recorded Client Recorded Date Recorded By Document 07/10/25 13:47 [email or web address] [id number] 07/10/25 13:50 [email or web address] 07/10/25 13:47 Wound Center Nurse 2 -Time 13:48 -Correct Patient Yes -Correct Side, Site, Position Yes -Correct Procedure Yes -Procedure Performed Yes -Type of Procedure Debridement -Clinical Debridement Subcutaneous -Tissue Removed Subcutaneous -Post Debridement (cm) - Length 3.3 -Post Debridement (cm) - Width 1.5 -Post Debridement (cm) - Depth 0.1 -Total Square (Post) (cm) 4.95 -Area of Debridement (cm) - Length 3.3 -Area of Debridement (cm) - Width 1.5 -Total Square (Area) (cm) 4.95 -Tunneling No -Undermining/Tunneling No -Circular Undermining No -Wound/Ulcer Outcome Not Healed -Ulcer Cleansing Rinsed/ Irrigated with Saline -Foul Odor after Cleansing No -Bioengineered Tissue No -Bleeding Controlled with Pressure -Treatment Response Procedure Tolerated Well -Offloading Yes -Type of Offloading Camwalker -Debridement - Subq, 1st 20sq cm Yes Pain Scale: 0-10 Numeric Is Patient Pain Free? Yes - Nurse 3 - General Ulcer D/C NN Start: 07/10/25 13:35 Freq: Status: Active Protocol: Activity Type Activity Date Activity User E-sign Co-sign Detail Recorded Client Recorded Date Recorded By Document 07/10/25 14:08 [id number] 07/10/25 14:09 [id number] 07/10/25 14:08 Wound Care Center Nurse 3 #30 Right Lateral Ankle CLUSTER -Primary Dressing Applied AMD Dressing 4x4 -Primary Dressing Covered/Secured with Dry Gauze & Roll Gauze, Secured with Tape -AMD Dressing 4x4 1 -Wound Comment(s) [place] BOOT R LEG Treatment Response Procedure Tolerated Well Pain Scale: 0-10 Numeric Is Patient Pain Free? Yes - Visit Discharge Discharge Condition Stable Ambulatory Status Wheelchair Transportation NHOME Medication Reconcilliation completed & No provided to patient/care provider Clinical Summary of Care Provided Yes Assessment/Plan Assessment/Plan (1) Non-pressure chronic 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 layer exposed: CODE(S): L97.512 - Non-pressure chronic 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 layer exposed PLAN: Patient was examined and evaluated. All findings were discussed with patient. All questions were answered to the patient satisfaction. Excisional debridement down to and including subcutaneous tissue with a number 3 mm dermal curette to the right foot lateral full-thickness wound down without incident. Predebridement was 3.0 x 1.2 x 0.1 cm. Placement measurement is 3.3 x 1.5 x 0.1 cm. The right foot was cleaned and patted dry. Betadine soaked gauze followed by dry sterile dressing and compression wrap was donned to the right lower extremity. Patient was instructed to don her [place] boot to the right lower extremity. At this time the patient is not a surgical candidate for reconstruction of the right lower extremity secondary Charcot foot deformity. Patient does have peripheral vascular disease, diabetes mellitus type 2 peripheral neuropathy as well as end-stage renal disease. Educated patient that it is a difficult and long-lasting procedure that will take approximately 1 year to recover from and due to the patient's poor health the likelihood of success is minimal. I educated the patient that she would benefit from a below-knee amputation if the delayed in wound healing or reoccurrence of infection occurs which she was not understanding of. We will continue to monitor the patient in the wound care center and perform conservative care with weekly debridements. 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
== END 2025-08-09 23:59 | disposition home or self-care (01) ==
LOC: WC 13:35
PROVIDERS: PCP Nurse Practitioner Adult Health; Referring Provider Podiatrist; Visit Provider Podiatrist Foot & Ankle Surgery
DX: E11.621 Type 2 diabetes mellitus with foot ulcer (principal); N18.6 End stage renal disease; L97.512 Non-pressure chronic 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 layer exposed; E11.22 Type 2 diabetes mellitus with diabetic chronic kidney disease; E11.42 Type 2 diabetes mellitus with diabetic polyneuropathy; M79.89 Other specified soft tissue disorders; M21.171 Varus deformity, not elsewhere classified, right ankle
CPT/HCPCS: 11042

== ENCOUNTER 2025-07-10 23:09 | Observation (INO) | payer MEDICARE, SELFPAY ==
[2018-09-21 13:23] VITALS: BMI 29.3
[2025-07-10 23:10] VITALS: BP 180/80; PULSE 74; RESP 20; TEMP 36.6; O2SAT 94
--- NOTE | 2025-07-10 23:53 | EX.ED.UPPERE ---
HPI History of Present Illness HPI Narrative: 60-year-old female history of diabetes end-stage renal disease on dialysis. Dialyzed Tuesday. States 2 weeks ago started getting pain and swelling the back of her left hand she was evaluated in the ER and had area aspirated they saw blood. Sent for culture there was no infection or growth. Was re-seen last night because more swelling and was I&D again just blood felt to be hematoma. Complaining of more pain and swelling today. Denies any fever or chills. She denies any trauma to the hand. Does not know why this started. Chief Complaint: Wound Informant: patient Onset/Context/Timing Onset: Weeks Context: Gradual Onset Timing: Continuous Quality of Pain: Sharp and Aching Current Severity: Moderate Maximum Severity: Moderate Narrative Narrative: 60-year-old female complaining of atraumatic pain and swelling dorsum of her left hand. Prior aspiration. Prior I&D. History of diabetes and end-stage renal disease. Denies any trauma. Prior similar symptoms: No Recent Illness/Hospitalization: No PFSH PFSH Medical History ESRD on dialysis History of stress test History of echocardiogram History of transesophageal echocardiography (HONG) History of TIA (transient ischemic attack) History of myocardial infarction Diabetes mellitus type 2 with complications Non-pressure chronic ulcer of ankle with fat layer exposed Secondary hyperparathyroidism Non-pressure chronic ulcer of right ankle with necrosis of muscle Non-pressure chronic ulcer of left ankle with necrosis of muscle Adverse effect of synthetic cannabinoids, initial encounter Avery coma scale score 13-15, at arrival to emergency department Acute alteration in mental status Short Achilles tendon (acquired), left ankle Short Achilles tendon (acquired), right ankle Acquired cavovarus deformity of left foot Acquired cavovarus deformity of right foot Type 2 diabetes mellitus with diabetic polyneuropathy Adult failure to thrive ESRD (end stage renal disease) on dialysis Drowsiness Mental status, decreased Carotid artery stenosis MSSA bacteremia ESRD on hemodialysis Osteomyelitis Anemia in chronic illness Type 2 diabetes mellitus Foot osteomyelitis, left Chronic renal disease, stage 4, severely decreased glomerular filtration rate (GFR) between 15-29 mL/min/1.73 square meter Acute on chronic anemia Chronic ulcer of right foot with necrosis of bone Chronic kidney disease, stage 4 (severe) Diabetes mellitus with diabetic polyneuropathy Diabetic foot ulcers Chronic kidney disease, stage 3b Charcot's joint, right ankle and foot Charcot's joint, left ankle and foot Cellulitis Acute lumbar radiculopathy Essential hypertension Adult failure to thrive COVID-19 (08/28/21) Chronic ulcer of right leg with fat layer exposed Ulcer of left foot with fat layer exposed Chronic ulcer of right foot with fat layer exposed Hyperparathyroidism, secondary renal Iron deficiency anemia Bilateral edema of lower extremity Chronic foot pain Non-pressure chronic 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 layer exposed Debility Charcot's joint of right foot Diabetes Non-smoker Myocardial infarct Hypertension TIA (transient ischemic attack) Amputation foot, bilat Non-pressure chronic ulcer of other part of left foot with fat layer exposed 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 Ulcer of left foot with necrosis of muscle Ulcer of left foot with muscle involvement without evidence of necrosis Anxiety and depression Diabetic infection of left foot Delayed wound healing Non-compliance Diabetic polyneuropathy Ischemic cardiomyopathy Obesity (BMI 30.0-34.9) Acquired varus deformity of left foot Acquired varus deformity of right foot Atherosclerosis of [place] coronary artery of [place] heart without angina pectoris Hemoglobin A1c greater than 9.0% NSTEMI (non-ST elevated myocardial infarction) (09/20/18) GERD (gastroesophageal reflux disease) HLD (hyperlipidemia) Back pain, chronic RLS (restless legs syndrome) Home Medications ?Medication ?Instructions ?Recorded ?Last Taken ?Type pantoprazole 40 mg tablet,delayed 40 mg PO BIDCM GERD 07/19/22 Unknown History release levothyroxine 25 mcg tablet 25 mcg PO DAILY thyroid 12/16/23 Unknown History insulin lispro 100 unit/mL See Protocol subcut ACHS blood 09/13/24 Unknown History subcutaneous pen (Humalog KwikPen sugar (U-100) Insulin) L.acidophil,salivari-Bifido 1 cap PO 4X/DAY probiotic #0 caps 09/21/24 Unknown Rx bifidum-Strep thermoph 175 mg capsule carvedilol 25 mg tablet 12.5 mg PO QHS blood pressure 12/06/24 Unknown History levetiracetam 500 mg tablet 500 mg PO BID seizures 12/06/24 Unknown History ondansetron HCl 4 mg tablet 4 mg PO Q8H PRN nausea and vomiting 02/28/25 Unknown History carvedilol 12.5 mg tablet (Coreg) 12.5 mg PO SUTUTHSA 03/18/25 Unknown History hydralazine 100 mg tablet 100 mg PO BID bp 03/18/25 Unknown History melatonin 5 mg capsule 5 mg PO QHS sleep 03/18/25 Unknown History sucralfate 1 gram tablet 1 g PO ACHS indigestion 03/18/25 Unknown History acetaminophen 500 mg capsule 1,000 mg PO QHS PRN pain 04/11/25 Unknown History clobetasol-propionate 1 applic topical BID PRN rash 04/11/25 Unknown History insulin lispro 100 unit/mL 5 unit subcut ACHS blood sugar 04/11/25 Unknown History subcutaneous pen (Humalog KwikPen (U-100) Insulin) gabapentin 300 mg capsule 300 mg PO TID pain 30 days #90 caps 05/02/25 Unknown Rx hydralazine 100 mg tablet 100 mg PO SUTUTHSA bp 05/28/25 Unknown History atorvastatin 40 mg tablet (Lipitor) 40 mg PO QHS cholesterol 06/04/25 Unknown History hydroxyzine HCl 25 mg tablet 25 mg PO DAILY 06/04/25 Unknown History methadone 5 mg tablet 2.5 mg PO BID PRN pain 06/04/25 Unknown History aspirin 81 mg tablet,delayed 81 mg PO DAILY 06/24/25 Unknown History release (Enteric Coated Aspirin) wndlttui-wqgvpvt-zalxshn 24 24 g PO PER PKG DIR PRN blood sugar 06/24/25 Unknown History gram/31 gram oral gel (Insta-Glucose (with dextrin)) diazepam 2 mg tablet 2 mg PO QHS 06/24/25 Unknown History flash glucose sensor (FreeStyle 06/24/25 Unknown History Puneet 2 Sensor kit) levetiracetam 250 mg tablet 250 mg PO .COMPLEX 06/24/25 Unknown History melatonin 10 mg capsule 10 mg PO QHS 06/24/25 Unknown History paroxetine HCl 30 mg tablet 30 mg PO QHS 06/24/25 Unknown History Allergy/AdvReac Type Severity Reaction Status Date / Time fentanyl Allergy Other Verified 07/10/25 23:12 Penicillins Allergy swelling Verified 07/10/25 23:12 in throat vancomycin Allergy Itching Verified 07/10/25 23:12 metronidazole AdvReac Nausea Verified 07/10/25 23:12 Family History Mother Diabetes CVA (cerebral vascular accident) Brother CAD (coronary artery disease) CABG X 3 Cancer testicular Diabetes Brother CAD (coronary artery disease) CABG X3 Diabetes Brother CAD (coronary artery disease) Stents Diabetes Sister CAD (coronary artery disease) CABG x 3 CVA (cerebral vascular accident) Diabetes Surgical History History of cardiac catheterization History of History of foot surgery History of bilateral carpal tunnel release History of rotator cuff surgery History of coronary artery stent placement (12/31/20) Social History household members: none number of children: 2 current occupational status: disabled Smoking Status: Never smoker alcohol intake: never substance use type: does not use caffeine: Yes Type: carbonated beverages Number of servings: 2 ROS ROS ED ROS Narrative Denies recent illness. Constitutional Constitutional ED: Denies chills or fever(s) Eyes Eyes: Denies blurry vision ENT ENT ED: Denies ear pain Cardiovascular Cardiovascular: Denies chest pain Respiratory/Chest Respiratory/Chest: Denies cough or dyspnea Gastrointestinal Gastrointestinal: Denies abdominal pain Genitourinary Genitourinary ED: Denies dysuria or hematuria Musculoskeletal Musculoskeletal: Denies back pain Integumentary Denies abscess Neurologic Neurologic: Denies headache(s) Psychiatric Psychiatric: Denies anxiety or depression Endocrine Endocrinology: Denies cold intolerance Hematologic/Lymphatic Hematologic/Lymphatic: Denies easy bleeding or easy bruising Allergic/Immunologic Allergic/Immunologic ED: Denies mouth swelling or tongue swelling EXAM Physical Exam Narrative Exam Narrative: 60-year-old female sitting upright in bed vital signs stable afebrile. H EENT exam pupils are react light. Moist mucous membranes. Lungs clear to auscultation. Heart regular rhythm rate about 70 no murmur. Abdomen soft and nontender. Moving all 4 extremities. Dorsal left hand swollen tender mildly warm to the touch. No lymphangitic streaking. No axillary lymphadenopathy. Able to open close the hand. No signs of tenosynovitis. No deformity. No bruising. No subcu air. Neurologically she is awake and alert. Answering questions following commands. Const Vital Signs: 07/10/25 23:10 Temperature 98 F Temperature Source Oral Pulse Rate 74 Respiratory Rate 20 H Blood Pressure 180/80 H Blood Pressure Mean 113 Pulse Ox 94 Oxygen Delivery Method Room Air MDM MDM MDM Narrative Medical decision making narrative: 60-year-old female atraumatic swelling back of her left hand. Initially had this aspirated 2 weeks ago which showed no signs of infection was cultured. I&D last night again would like a hematoma. Now more pain and swelling. It may be infected at this time. She will be started on IV clindamycin due to penicillin allergy and screening labs to be obtained in the x-ray. Repeat exam 2:30 a.m. no significant change clinically I do not think her hand is infected. She has had it evaluated twice both times is felt to be hematoma. However when I did her labs she is hyperkalemic and has recently missed dialysis. She will be treated for hyperkalemia with calcium gluconate IV, aerosol, insulin and bicarbonate. I will have the hospitalist on page for admission. History & Record Review Discussion w/independent historian: Patient Additional record(s) reviewed:: Prior inpatient record, Prior outpatient record, Prior ED visit and Prior labs Lab Data Attestation: I reviewed the patient's lab results. Lab results narrative: CBC shows a white count of 5. H&H of 10 and 33 which is her baseline anemia. Platelets 186. Electrolytes show potassium 7.3. Anion gap of 17. BUN and creatinine of 77 and 7.7. Rhythm Strip Rhythm Strip: Sinus Rhythm Rate: 68 Ectopy: None EKG Initial EKG: Attestation: I personally reviewed and interpreted this EKG as follows: Interpretation: Sinus Rhythm and No Acute Injury Pattern Comments: Normal sinus rhythm rate of 68 no acute signs of dysrhythmia. No significant signs of changes due to hyperkalemia. Discharge Plan Dx/Rx/DC Orders Clinical Impression: Acute hyperkalemia, End stage chronic kidney disease, Missed dialysis, History of diabetes mellitus, Swelling of left hand Disposition Disposition: [facility]
--- NOTE | 2025-07-10 23:59 | RAD_ITS ---
PROCEDURE: HAND MIN 3 VIEWS 07/11/2025 REASON FOR EXAM: SWELLING ATRAUMATIC TECHNIQUE: Procedure Code: ANJELICA Modality: DX Procedure: HAND MIN 3 VIEWS Laterality: Left. COMPARISON: 06/24/2025. FINDINGS: Unchanged diffuse soft tissue edema and swelling. Mild osteopenia of the visualized bones. Degenerative joint disease. No fracture or dislocation is seen. No lytic or blastic bone lesion is noted. RAD/Hand Min 3 Views IMPRESSION: Unchanged diffuse soft tissue edema and swelling. [facility]
[2025-07-11] VITALS (37 sets, daily range): BP systolic 103–166; BP diastolic 60–109; PULSE 56–95; RESP 10–20; TEMP 36.2–36.6; O2SAT 88–100; BMI 30.1; BMI 29.7; BMI 27.8
[2025-07-11 00:08] LABS: Hematocrit 33.7 % (37-47); Hemoglobin 10.6 g/dL (12.0-15.0); Immature Granulocytes Count 0.010 X10^3/uL (0.0-0.0); Mean Corp Hgb Conc 31.5 g/dL (32-36); Mean Corpuscular Volume 92.8 fL (81-99); Mean Platelet Vol. 11.3 fl (6.2-12.0); NRBC Flagged by Analyzer 0 % (0-5); Platelet Count 186 K/mm3 (150-450); RBC Distribution Width CV 16.2 % (11.6-14.6); RBC Distribution Width SD 55.2 fl (35.1-43.9); Red Blood Count 3.63 M/mm3 (4.2-5.4); White Blood Count 5.3 K/mm3 (4.4-11.0)
[2025-07-11] MEDS: Clindamycin 900 MG/50 ML BAG 75 MG IV (00:14)
[2025-07-11 01:10] LABS: Anion Gap 17 (5-15); BUN 77 mg/dL (4-19); BUN/Creat Ratio 9.9 RATIO (10-20); Calcium,Total 7.9 mg/dL (7.6-11.0); Carbon Dioxide 20.7 mmol/L (21.0-32.0); Chloride 98 mmol/L (98-108); Estimated Creatinine Clearance 8.17 ml/min (50-250); Glucose 175 mg/dL (70-99); Potassium 7.3 mmol/L (3.3-5.1)
--- NOTE | 2025-07-11 02:49 | PCM.HP.STD ---
HPI - General General Date of Admission: 07/11/25 Date of Service: 07/11/25 Chief Complaint: Missed HD, L hand swelling. 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 and chronic polyneuropathy w/ Hx Diabetic foot ulcers s/p BL LE foot surgeries with Chronic Diabetic BL LE Wounds, HTN, HLD, Chronic anemia/AOCD, Hx TIA, CAD s/p PCI and Ischemic cardiomyopathy, RLS, ESRD on HD MWF who presents to the [facility] ED on 07/11/2025 with history of 2 weeks prior notable pain and discomfort to the left hand evaluated in the ED at that time with an region of possible hematoma with unremarkable growth seen again the evening prior with repeat I&D performed again consistent with a hematoma unfortunately with reoccurrence on day of presentation with no fevers or chills and no recent history of trauma but given recurrence again prompted repeat evaluation with noted sharp and aching discomfort rated moderate, continuous primarily in the left dorsum of the hand. Patient has had this ongoing issue since intervention for AV fistula to the left upper extremity with occasional blue/black discoloration of the fingers downstream of the swollen area. She did report that she recently missed dialysis of note on Tuesday. Patient in the ED is only complaining of bilateral lower extremity discomfort and asking for pain medication. This is a chronic issue. Workup in the ED included T97.8, heart rate 74, BP 157/72, respiratory rate 19, 93% on room air with most recent repeat vitals T97.5, heart rate 68, BP 136/77, respiratory rate 16, 92% on room air, CBC with WC 5.3, hemoglobin 10.6, MCV 92.8, platelet 186 without marked shift, BMP with potassium 7.3 however hemolyzed, carbon oxide 20.7, anion gap 17, BUN/creatinine 77/7.75, GFR 6, glucose 175, plain film of the hand with no acute evidence of bony findings/erosion/osteomyelitis. In the ED patient ministered albuterol, calcium gluconate IV 3 g, insulin 10 unit IV x 1, sodium bicarb 150 mill equivalents IV to 50 mL/h, Zofran 4 mg IV x 1, morphine 6 mg IV x 1, clindamycin 900 mg IV x 1. Discussed with ED physician and he notes low suspicion for acute infection. [facility] Medical History ESRD on dialysis History of stress test History of echocardiogram History of transesophageal echocardiography (HONG) History of TIA (transient ischemic attack) History of myocardial infarction Diabetes mellitus type 2 with complications Non-pressure chronic ulcer of ankle with fat layer exposed Secondary hyperparathyroidism Non-pressure chronic ulcer of right ankle with necrosis of muscle Non-pressure chronic ulcer of left ankle with necrosis of muscle Adverse effect of synthetic cannabinoids, initial encounter Avery coma scale score 13-15, at arrival to emergency department Acute alteration in mental status Short Achilles tendon (acquired), left ankle Short Achilles tendon (acquired), right ankle Acquired cavovarus deformity of left foot Acquired cavovarus deformity of right foot Type 2 diabetes mellitus with diabetic polyneuropathy Adult failure to thrive ESRD (end stage renal disease) on dialysis Drowsiness Mental status, decreased Carotid artery stenosis MSSA bacteremia ESRD on hemodialysis Osteomyelitis Anemia in chronic illness Type 2 diabetes mellitus Foot osteomyelitis, left Chronic renal disease, stage 4, severely decreased glomerular filtration rate (GFR) between 15-29 mL/min/1.73 square meter Acute on chronic anemia Chronic ulcer of right foot with necrosis of bone Chronic kidney disease, stage 4 (severe) Diabetes mellitus with diabetic polyneuropathy Diabetic foot ulcers Chronic kidney disease, stage 3b Charcot's joint, right ankle and foot Charcot's joint, left ankle and foot Cellulitis Acute lumbar radiculopathy Essential hypertension Adult failure to thrive COVID-19 (08/28/21) Chronic ulcer of right leg with fat layer exposed Ulcer of left foot with fat layer exposed Chronic ulcer of right foot with fat layer exposed Hyperparathyroidism, secondary renal Iron deficiency anemia Bilateral edema of lower extremity Chronic foot pain Non-pressure chronic 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 layer exposed Debility Charcot's joint of right foot Diabetes Non-smoker Myocardial infarct Hypertension TIA (transient ischemic attack) Amputation foot, bilat Non-pressure chronic ulcer of other part of left foot with fat layer exposed 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 Ulcer of left foot with necrosis of muscle Ulcer of left foot with muscle involvement without evidence of necrosis Anxiety and depression Diabetic infection of left foot Delayed wound healing Non-compliance Diabetic polyneuropathy Ischemic cardiomyopathy Obesity (BMI 30.0-34.9) Acquired varus deformity of left foot Acquired varus deformity of right foot Atherosclerosis of wrangell coronary artery of wrangell heart without angina pectoris Hemoglobin A1c greater than 9.0% NSTEMI (non-ST elevated myocardial infarction) (09/20/18) GERD (gastroesophageal reflux disease) HLD (hyperlipidemia) Back pain, chronic RLS (restless legs syndrome) Home Medications ?Medication ?Instructions ?Recorded ?Last Taken ?Type pantoprazole 40 mg tablet,delayed 40 mg PO BIDCM GERD 07/19/22 Unknown History release levothyroxine 25 mcg tablet 25 mcg PO DAILY thyroid 12/16/23 Unknown History insulin lispro 100 unit/mL See Protocol subcut ACHS blood 09/13/24 Unknown History subcutaneous pen (Humalog KwikPen sugar (U-100) Insulin) L.acidophil,salivari-Bifido 1 cap PO 4X/DAY probiotic #0 caps 09/21/24 Unknown Rx bifidum-Strep thermoph 175 mg capsule carvedilol 25 mg tablet 12.5 mg PO QHS blood pressure 12/06/24 Unknown History levetiracetam 500 mg tablet 500 mg PO BID seizures 12/06/24 Unknown History ondansetron HCl 4 mg tablet 4 mg PO Q8H PRN nausea and vomiting 02/28/25 Unknown History carvedilol 12.5 mg tablet (Coreg) 12.5 mg PO SUTUTHSA 03/18/25 Unknown History hydralazine 100 mg tablet 100 mg PO BID bp 03/18/25 Unknown History melatonin 5 mg capsule 5 mg PO QHS sleep 03/18/25 Unknown History sucralfate 1 gram tablet 1 g PO ACHS indigestion 03/18/25 Unknown History acetaminophen 500 mg capsule 1,000 mg PO QHS PRN pain 04/11/25 Unknown History clobetasol-propionate 1 applic topical BID PRN rash 04/11/25 Unknown History insulin lispro 100 unit/mL 5 unit subcut ACHS blood sugar 04/11/25 Unknown History subcutaneous pen (Humalog KwikPen (U-100) Insulin) gabapentin 300 mg capsule 300 mg PO TID pain 30 days #90 caps 05/02/25 Unknown Rx hydralazine 100 mg tablet 100 mg PO SUTUTHSA bp 05/28/25 Unknown History atorvastatin 40 mg tablet (Lipitor) 40 mg PO QHS cholesterol 06/04/25 Unknown History hydroxyzine HCl 25 mg tablet 25 mg PO DAILY 06/04/25 Unknown History methadone 5 mg tablet 2.5 mg PO BID PRN pain 06/04/25 Unknown History aspirin 81 mg tablet,delayed 81 mg PO DAILY 06/24/25 Unknown History release (Enteric Coated Aspirin) jpuabdke-cleqrio-reoeqee 24 24 g PO PER PKG DIR PRN blood sugar 06/24/25 Unknown History gram/31 gram oral gel (Insta-Glucose (with dextrin)) diazepam 2 mg tablet 2 mg PO QHS 06/24/25 Unknown History flash glucose sensor (FreeStyle 06/24/25 Unknown History Puneet 2 Sensor kit) levetiracetam 250 mg tablet 250 mg PO .COMPLEX 06/24/25 Unknown History melatonin 10 mg capsule 10 mg PO QHS 06/24/25 Unknown History paroxetine HCl 30 mg tablet 30 mg PO QHS 06/24/25 Unknown History Allergy/AdvReac Type Severity Reaction Status Date / Time fentanyl Allergy Other Verified 07/10/25 23:12 Penicillins Allergy swelling Verified 07/10/25 23:12 in throat vancomycin Allergy Itching Verified 07/10/25 23:12 metronidazole AdvReac Nausea Verified 07/10/25 23:12 Family History Mother Diabetes CVA (cerebral vascular accident) Brother CAD (coronary artery disease) CABG X 3 Cancer testicular Diabetes Brother CAD (coronary artery disease) CABG X3 Diabetes Brother CAD (coronary artery disease) Stents Diabetes Sister CAD (coronary artery disease) CABG x 3 CVA (cerebral vascular accident) Diabetes Surgical History History of cardiac catheterization History of History of foot surgery History of bilateral carpal tunnel release History of rotator cuff surgery History of coronary artery stent placement (12/31/20) Social History household members: none number of children: 2 current occupational status: disabled Smoking Status: Never smoker alcohol intake: never substance use type: does not use caffeine: Yes Type: carbonated beverages Number of servings: 2 ROS ROS Narrative Admission Review of Systems: CONSTITUTIONAL: No weight loss, fever, chills, + weakness or fatigue. HEENT: Eyes: No visual loss, blurred vision, double vision or yellow sclerae. Ears, Nose, Throat: No hearing loss, sneezing, congestion, runny nose or sore throat. SKIN: + Chronic bilateral lower extremity diabetic wounds, more recently notably so chronic right foot ulcer, following podiatry, occasional stage ecchymoses, abrasion, recent left hand recurrent hematoma with no erythema, some edema associated. CARDIOVASCULAR: No chest pain, chest pressure or chest discomfort, palpitations, edema, orthopnea, syncopal events. RESPIRATORY: No shortness of breath, cough or sputum, wheezing, hemoptysis. GASTROINTESTINAL: No anorexia, nausea, vomiting or diarrhea, abdominal pain, melena, BRBPR. GENITOURINARY: No dysuria, frequency, urgency or retention. NEUROLOGICAL: No headache, dizziness, syncope, paralysis, ataxia, numbness or tingling in the extremities, focal weakness, change in bowel or bladder control, seizure. MUSCULOSKELETAL: + muscle, back pain, joint pain or stiffness. HEMATOLOGIC: + Chronic anemia, easy bleeding/bruising. LYMPHATICS: No enlarged nodes. No history of splenectomy. PSYCHIATRIC: + History of anxiety and depression. ENDOCRINOLOGIC: No reports of sweating, cold or heat intolerance. No polyuria or polydipsia. ALLERGIES: No history of asthma, hives, eczema or rhinitis. Vital Signs Vital Signs Vital Signs: 07/10/25 23:10 07/11/25 00:18 07/11/25 01:50 Temperature 98 F 98 F 97.5 F L Temperature Source Oral Oral Oral Pulse Rate 74 71 68 Respiratory Rate 20 H 18 16 Blood Pressure 180/80 H 143/63 H 136/77 H Blood Pressure Mean 113 89 96 Pulse Ox 94 91 92 Oxygen Delivery Method Room Air Room Air Room Air Weight Weight: 181 lb 3.52 oz Body Mass Index (BMI) 30.1 Physical Exam Narrative Physical Examination: General: Awake, alert, oriented x 3 and cooperative, seated upright in the ED bed, only complaint is bilateral lower extremity pain which is chronic. Skin: Normal color, normal turgor, no icterus, no cyanosis except occasional stage ecchymoses, occasional abrasion, left hand with mild dorsal swelling with no streaking with no significant ecchymotic change of note. HEENT: AT/NC, EOMI, PERRLA, MMM, no carotid bruits or JVD noted. Lungs: Diminished, greater bases, mildly increased respiratory rate but no distress, no appreciated rales, ronchi or wheezing. Heart: Regular rate and rhythm; no gallop, rub audible. Abdomen: Soft, obese, NTTP, ND, normal BS, no appreciated HSM. Extremities: No cyanosis, no clubbing, bilateral ankle chronic swelling, mild dorsal left hand swelling. Neurological: Patient awake, alert, oriented as noted cognitive function intact; pupils equally reactive to light and accommodation, cranial nerves grossly normal, moving all 4 extremities although currently complaining of bilateral lower extremity leg discomfort, frequently moving them, strength moderately globally decreased. Psychiatric: Affect appears fatigued, mildly uncomfortable, no acute evidence of depressive or anxiety feelings but does have underlying history. Results Lab / Micro Data 07/11/25 00:00 07/11/25 00:00 Labs: Laboratory Results - last 24 hr 07/11/25 00:00: WBC 5.3, RBC 3.63 L, Hgb 10.6 L, Hct 33.7 L, MCV 92.8, MCH 29.2, MCHC 31.5 L, RDW Std Deviation 55.2 H, RDW Coeff of Fior 16.2 H, Plt Count 186, MPV 11.3, Immature Gran % (Auto) 0.200, Neut % (Auto) 65.5, Lymph % (Auto) 20.7, [place] % (Auto) 9.4, Eos % (Auto) 3.6, Baso % (Auto) 0.6, Absolute Neuts (auto) 3.5, Absolute Lymphs (auto) 1.10, Nucleated RBC % 0, Sodium 136, Potassium 7.3 H*, Chloride 98, Carbon Dioxide 20.7 L, Anion Gap 17 H, BUN 77 H, Creatinine 7.75 H*, Estim Creat Clear Calc 8.17 L*, Est GFR (MDRD) Non-Af 6 L, BUN/Creatinine Ratio 9.9 L, Glucose 175 H, Calcium 7.9 Assessment & Plan Assessment/Plan (1) Acute hyperkalemia: (2) Missed dialysis: (3) Swelling of left hand: PLAN: Plan The patient is a 60 y/o F w/ PMHx: Seizure disorder, Anxiety and Depression, Diabetes mellitus type II with charcot foot and chronic polyneuropathy w/ Hx Diabetic foot ulcers s/p BL LE foot surgeries with Chronic Diabetic BL LE Wounds, HTN, HLD, Chronic anemia/AOCD, Hx TIA, CAD s/p PCI and Ischemic cardiomyopathy, RLS, ESRD on HD MWF who presents to the [facility] ED on 07/11/2025 with history of 2 weeks prior notable pain and discomfort to the left hand evaluated in the ED at that time with an region of possible hematoma with unremarkable growth seen again the evening prior with repeat I&D performed again consistent with a hematoma unfortunately with reoccurrence on day of presentation with no fevers or chills and no recent history of trauma but did note this onset following left upper extremity AV fistula creation, but given recurrent concern prompted repeat evaluation with noted sharp and aching discomfort rated moderate, continuous primarily in the left dorsum of the hand. #1. Acute hyperkalemia although component of hemolysis with unfortunately recently missed dialysis with ESRD on HD: Patient with normal HD sessions MWF, unfortunately missing secondary to recent issues with recurrent hematoma on the hand, will admit to the ICU given level per protocol, nephrology is consulted, clarified with nursing supervisor engines road availability for emergent dialysis today, will initiate in the interim hyperkalemic protocol and continue to serially obtain BMP in the interim to assure improving, will maintain on telemetry, mold filler will be consulted per protocol. #2. Left hand recurrent swelling, possible recent, suspected noninfectious, suspect more likely secondary to vascular flow status post recent AV left upper extremity: Unclear etiology for recurrent hematoma, has already been cultured previously with no growth, repeat presentation with similar findings, to be cautious we will continue to observe and monitor for any erythema development, encourage strongly elevation of the extremity, will place snug myla wrap however will assure there is no unsafe compression with continued sensorium and continued blood flow to help assist with preventing recurrence, will request repeat wound/wound MRSA PCR evaluation to be cautious. Will defer any antibiotics given no evidence of any recent fever or chills and no marked WC elevation or left shift and no evidence of any erythema and recent negative cultures. Given notable renal disease procalcitonin will be deferred. #3. Chronic right foot ulcer: Following with energy analyst Dr. Kowalski, most recent visit 07/10/2025, continue nonweightbearing status, offloading, usage of Cherokee boot with weightbearing as tolerated with assistance only, wound RN will be consulted. Encourage continued follow-up outpatient with podiatry as previously arranged. #4. History of TIA: Will continue aspirin, statin, will continue hypertensive regimen as noted, diabetic regimen with adjustments as noted. #5. CAD/ischemic cardiomyopathy: Status post PCI, will continue aspirin, statin, continue Coreg, not on MYLA or/ARB potentially secondary to underlying renal disease. #6. Chronic pain syndrome: Will continue including low-dose methadone, gabapentin, Valium to avoid withdrawal, hold for sedation. #7. Chronic normocytic anemia/anemia of chronic disease: Admission hemoglobin 9.3, MCV 97.3, baseline hemoglobin 8-9, stable, continue to trend. #8. Diabetes mellitus type II with with charcot foot and chronic polyneuropathy w/ Hx Diabetic foot ulcers s/p BL LE foot surgeries with Chronic Diabetic BL LE Wounds, see #3: Hold oral home regimen, continue home insulin regimen, ADA diet, accu checks w/ ISS, wound RN consulted, continue home chronic gabapentin regimen. #9. Seizure disorder: Will continue Keppra home regimen. #10. Hypertension: Continue home regimen including Coreg, hydralazine, PRN hydralazine. #11. Hyperlipidemia: Continue patient statin therapy. #12. Hypothyroidism: Will continue patient home levothyroxine regimen. #13. GERD: Will continue patient on PPI and sucralfate home regimen. #14. Anxiety and depression: Will continue patient on paroxetine regimen. #15. DVT prophylaxis: Given recent recurrent issues with L hand hematoma will defer chemoprophylaxis, SCDs. #16. CODE STATUS: Patient HCPOA and living will per discussion did not appear to be in place but patient is and significant would help make decisions as well as her daughter. Discussed CODE status at length including difference between FULL code, DNR-CCA and DNR-CC status. Following discussions about the differences in these status, requested Full Code status. Discussed notable underlying comorbidities and likelihood of a good outcome. Advanced Care Planning Face to Face Time: 16 minutes. Charges/Coding Visit Charges Inpatient E&M: 08732 Init Hosp L3 Procedures Hospitalists Procedures: 38409 Advncd Care Plan 30 Min
[2025-07-11] MEDS: Sodium Bicarbonate 150 MEQ in Dextrose 5%-Water (1000mL Bag) 1,000 ML 250 MEQ IV (02:57)
[2025-07-11] MEDS: Calcium Gluconate IV 3 GM in Syringe 1 EACH IV (02:58)
[2025-07-11] MEDS: Insulin Lispro 10 UNIT in Syringe 0 ML 6 UNIT IV (02:58)
[2025-07-11] MEDS: Albuterol *CONC* 2.5mg/0.5mL VIAL.NEB. 10 MG INHALATION (03:03)
[2025-07-11] MEDS: HYDROmorphone 0.5 MG/0.5 ML SYRINGE IV (03:19)
[2025-07-11 03:40] LABS: Magnesium 2.1 mg/dL (1.5-2.2)
[2025-07-11] MEDS: 0.9% Saline Lock 10 ML Syringe IV ×2 (05:44→08:39)
[2025-07-11 05:56] LABS: Hematocrit 29.2 % (37-47); Hemoglobin 9.3 g/dL (12.0-15.0); Immature Granulocytes Count 0.010 X10^3/uL (0.0-0.0); Mean Corp Hgb Conc 31.8 g/dL (32-36); Mean Corpuscular Volume 91.8 fL (81-99); Mean Platelet Vol. 10.8 fl (6.2-12.0); NRBC Flagged by Analyzer 0 % (0-5); Platelet Count 157 K/mm3 (150-450); RBC Distribution Width CV 16.1 % (11.6-14.6); RBC Distribution Width SD 54.9 fl (35.1-43.9); Red Blood Count 3.18 M/mm3 (4.2-5.4); White Blood Count 4.1 K/mm3 (4.4-11.0)
[2025-07-11 06:15] LABS: Anion Gap 16 (5-15); BUN 79 mg/dL (4-19); BUN/Creat Ratio 9.8 RATIO (10-20); Calcium,Total 8.4 mg/dL (7.6-11.0); Carbon Dioxide 24.4 mmol/L (21.0-32.0); Chloride 98 mmol/L (98-108); Estimated Creatinine Clearance 7.82 ml/min (50-250); Glucose 70 mg/dL (70-99); Potassium 5.9 mmol/L (3.3-5.1)
[2025-07-11] MEDS: PureFlow B 2K Dialysis Soln 1 BAG 6 BAG PF (08:38)
[2025-07-11] MEDS: 0.9% Normal Saline 1,000 ML IV.SOLN. 1000 ML OPERA.SITE (08:38)
[2025-07-11 09:01] LABS: Anion Gap 14 (5-15); BUN 78 mg/dL (4-19); BUN/Creat Ratio 10.0 RATIO (10-20); Calcium,Total 8.1 mg/dL (7.6-11.0); Carbon Dioxide 28.2 mmol/L (21.0-32.0); Chloride 95 mmol/L (98-108); Estimated Creatinine Clearance 8.13 ml/min (50-250); Glucose 114 mg/dL (70-99); Potassium 5.9 mmol/L (3.3-5.1)
--- NOTE | 2025-07-11 10:43 | CASEMGMT ---
Social Work Pt is admitted from [facility]. SW met with pt and introduced self and role of SW. Pt plans to return to [facility] [place] at discharge. Pt goes to dialysis at [facility] 6am chair time with Minnie maloney. RNCM updated. Phone call to [facility], and pt has a health care administrator through the [employer] Medicaid Waiver program: Winnie Echeverria (ph:[phone], fax: [phone]). SW to notify at time of discharge. Pt states she has completed AD and that a copy is on file at [facility]. SW updated pt that [facility] does not have a copy. LUCRETIA called pt dgt with no answer and voicemail full. DC assistant farm operations manager to send updates to [facility] and will inquire about Advance Directives. Plan: Return to [facility] at time of discharge. ERIN Fallon
--- NOTE | 2025-07-11 11:03 | CASEMGMT ---
Discharge Planning Per SW request, updates sent to T with request for copies of advanced directives. Nursing at [facility] states they have none in her chart but will check with the main office and fax them if available. SW updated. Rekha Moore DC Planning Asst.
--- NOTE | 2025-07-11 11:27 | PCM.CONS.R ---
Assessment & Plan Assessment/Plan (1) End stage chronic kidney disease: (2) Acute hyperkalemia: (3) Swelling of left hand: PLAN: Plan ESRD on hemodialysis Tuesday, patient did not dialyze yesterday therefore we will plan for dialysis today on 2K bath and attempt fluid removal as patient/blood pressure tolerates. Will plan for dialysis again tomorrow if patient is still in hospital. Patient will need to be seen by vascular for recurrent left arm and hand swelling. We will make contact with patient's outpatient hemodialysis center tomorrow when they are open. We will continue to use the tunneled hemodialysis catheter for dialysis while patient is in hospital. Further orders forthcoming as hospitalization evolves, thank you for allowing us to participate in the care of Ms. Carrillo. Assessment and plan reviewed with Dr. Joel. HPI Consult Data Date of Consult: 07/11/25 HPI Narrative HPI Narrative: DIONY CARRILLO, is a 60 F who presented to the emergency room yesterday with complaints of left hand swelling and missing dialysis. Patient has past medical history significant for end-stage renal disease currently dialyzes at [facility] Tuesday schedule followed by Dr. Flynn. Initial lab work in the emergency room last evening potassium 7.3, specimen hemolyzed. Patient did receive medication for hyperkalemia and admitted for further evaluation and treatment. Nephrology consulted in view of history of ESRD for dialysis management. Patient is currently undergoing hemodialysis. She denies any recent chest pain, shortness of breath, nausea vomiting or diarrhea. She does complain of swelling and pain to the left hand. Patient does have left upper arm AV fistula which has not been accessed for hemodialysis. Her current access for hemodialysis is a tunneled hemodialysis catheter. COUNTS INCLUDE 234 BEDS AT THE [facility] Medical History ESRD on dialysis History of stress test History of echocardiogram History of transesophageal echocardiography (HONG) History of TIA (transient ischemic attack) History of myocardial infarction Diabetes mellitus type 2 with complications Non-pressure chronic ulcer of ankle with fat layer exposed Secondary hyperparathyroidism Non-pressure chronic ulcer of right ankle with necrosis of muscle Non-pressure chronic ulcer of left ankle with necrosis of muscle Adverse effect of synthetic cannabinoids, initial encounter Avery coma scale score 13-15, at arrival to emergency department Acute alteration in mental status Short Achilles tendon (acquired), left ankle Short Achilles tendon (acquired), right ankle Acquired cavovarus deformity of left foot Acquired cavovarus deformity of right foot Type 2 diabetes mellitus with diabetic polyneuropathy Adult failure to thrive ESRD (end stage renal disease) on dialysis Drowsiness Mental status, decreased Carotid artery stenosis MSSA bacteremia ESRD on hemodialysis Osteomyelitis Anemia in chronic illness Type 2 diabetes mellitus Foot osteomyelitis, left Chronic renal disease, stage 4, severely decreased glomerular filtration rate (GFR) between 15-29 mL/min/1.73 square meter Acute on chronic anemia Chronic ulcer of right foot with necrosis of bone Chronic kidney disease, stage 4 (severe) Diabetes mellitus with diabetic polyneuropathy Diabetic foot ulcers Chronic kidney disease, stage 3b Charcot's joint, right ankle and foot Charcot's joint, left ankle and foot Cellulitis Acute lumbar radiculopathy Essential hypertension Adult failure to thrive COVID-19 (08/28/21) Chronic ulcer of right leg with fat layer exposed Ulcer of left foot with fat layer exposed Chronic ulcer of right foot with fat layer exposed Hyperparathyroidism, secondary renal Iron deficiency anemia Bilateral edema of lower extremity Chronic foot pain Non-pressure chronic 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 layer exposed Debility Charcot's joint of right foot Diabetes Non-smoker Myocardial infarct Hypertension TIA (transient ischemic attack) Amputation foot, bilat Non-pressure chronic ulcer of other part of left foot with fat layer exposed 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 Ulcer of left foot with necrosis of muscle Ulcer of left foot with muscle involvement without evidence of necrosis Anxiety and depression Diabetic infection of left foot Delayed wound healing Non-compliance Diabetic polyneuropathy Ischemic cardiomyopathy Obesity (BMI 30.0-34.9) Acquired varus deformity of left foot Acquired varus deformity of right foot Atherosclerosis of [place] coronary artery of [place] heart without angina pectoris Hemoglobin A1c greater than 9.0% NSTEMI (non-ST elevated myocardial infarction) (09/20/18) GERD (gastroesophageal reflux disease) HLD (hyperlipidemia) Back pain, chronic RLS (restless legs syndrome) Home Medications ?Medication ?Instructions ?Recorded ?Last Taken ?Type pantoprazole 40 mg tablet,delayed 40 mg PO BIDCM GERD 07/19/22 Unknown History release levothyroxine 25 mcg tablet 25 mcg PO DAILY thyroid 12/16/23 Unknown History insulin lispro 100 unit/mL See Protocol subcut ACHS blood 09/13/24 Unknown History subcutaneous pen (Humalog KwikPen sugar (U-100) Insulin) L.acidophil,salivari-Bifido 1 cap PO 4X/DAY probiotic #0 caps 09/21/24 Unknown Rx bifidum-Strep thermoph 175 mg capsule carvedilol 25 mg tablet 12.5 mg PO QHS blood pressure 12/06/24 Unknown History levetiracetam 500 mg tablet 500 mg PO BID seizures 12/06/24 Unknown History ondansetron HCl 4 mg tablet 4 mg PO Q8H PRN nausea and vomiting 02/28/25 Unknown History carvedilol 12.5 mg tablet (Coreg) 12.5 mg PO SUTUTHSA 03/18/25 Unknown History hydralazine 100 mg tablet 100 mg PO BID bp 03/18/25 Unknown History melatonin 5 mg capsule 5 mg PO QHS sleep 03/18/25 Unknown History sucralfate 1 gram tablet 1 g PO ACHS indigestion 03/18/25 Unknown History acetaminophen 500 mg capsule 1,000 mg PO QHS PRN pain 04/11/25 Unknown History clobetasol-propionate 1 applic topical BID PRN rash 04/11/25 Unknown History insulin lispro 100 unit/mL 5 unit subcut ACHS blood sugar 04/11/25 Unknown History subcutaneous pen (Humalog KwikPen (U-100) Insulin) gabapentin 300 mg capsule 300 mg PO TID pain 30 days #90 caps 05/02/25 Unknown Rx hydralazine 100 mg tablet 100 mg PO SUTUTHSA bp 05/28/25 Unknown History atorvastatin 40 mg tablet (Lipitor) 40 mg PO QHS cholesterol 06/04/25 Unknown History hydroxyzine HCl 25 mg tablet 25 mg PO DAILY 06/04/25 Unknown History methadone 5 mg tablet 2.5 mg PO BID PRN pain 06/04/25 Unknown History aspirin 81 mg tablet,delayed 81 mg PO DAILY 06/24/25 Unknown History release (Enteric Coated Aspirin) tivjvxxl-coaoqha-hfewxcs 24 24 g PO PER PKG DIR PRN blood sugar 06/24/25 Unknown History gram/31 gram oral gel (Insta-Glucose (with dextrin)) diazepam 2 mg tablet 2 mg PO QHS 06/24/25 Unknown History flash glucose sensor (FreeStyle 06/24/25 Unknown History Puneet 2 Sensor kit) levetiracetam 250 mg tablet 250 mg PO .COMPLEX 06/24/25 Unknown History melatonin 10 mg capsule 10 mg PO QHS 06/24/25 Unknown History paroxetine HCl 30 mg tablet 30 mg PO QHS 06/24/25 Unknown History Allergy/AdvReac Type Severity Reaction Status Date / Time fentanyl Allergy Other Verified 07/10/25 23:12 Penicillins Allergy swelling Verified 07/10/25 23:12 in throat vancomycin Allergy Itching Verified 07/10/25 23:12 metronidazole AdvReac Nausea Verified 07/10/25 23:12 Family History Mother Diabetes CVA (cerebral vascular accident) Brother CAD (coronary artery disease) CABG X 3 Cancer testicular Diabetes Brother CAD (coronary artery disease) CABG X3 Diabetes Brother CAD (coronary artery disease) Stents Diabetes Sister CAD (coronary artery disease) CABG x 3 CVA (cerebral vascular accident) Diabetes Surgical History History of cardiac catheterization History of History of foot surgery History of bilateral carpal tunnel release History of rotator cuff surgery History of coronary artery stent placement (12/31/20) Social History household members: none number of children: 2 current occupational status: disabled Smoking Status: Never smoker alcohol intake: never substance use type: does not use caffeine: Yes Type: carbonated beverages Number of servings: 2 ROS ROS Narrative As in HPI, otherwise negative Physical Exam Narrative Alert and oriented x 3, no apparent distress S1, S2, RRR Breath sounds clear Abdomen soft, nontender No pitting edema to legs; dressing to right foot Tunneled hemodialysis catheter accessed for dialysis Left upper arm AV fistula faint thrill and bruit. Edema noted to left arm and hand Lab / Micro Data 07/11/25 05:40 07/11/25 08:05 Labs: Laboratory Results - last 24 hr 07/11/25 00:00: WBC 5.3, RBC 3.63 L, Hgb 10.6 L, Hct 33.7 L, MCV 92.8, MCH 29.2, MCHC 31.5 L, RDW Std Deviation 55.2 H, RDW Coeff of Fior 16.2 H, Plt Count 186, MPV 11.3, Immature Gran % (Auto) 0.200, Neut % (Auto) 65.5, Lymph % (Auto) 20.7, Bay % (Auto) 9.4, Eos % (Auto) 3.6, Baso % (Auto) 0.6, Absolute Neuts (auto) 3.5, Absolute Lymphs (auto) 1.10, Nucleated RBC % 0, Sodium 136, Potassium 7.3 H*, Chloride 98, Carbon Dioxide 20.7 L, Anion Gap 17 H, BUN 77 H, Creatinine 7.75 H*, Estim Creat Clear Calc 8.17 L*, Est GFR (MDRD) Non-Af 6 L, BUN/Creatinine Ratio 9.9 L, Glucose 175 H, Calcium 7.9, Phosphorus 4.0, Magnesium 2.1 07/11/25 05:40: WBC 4.1 L, RBC 3.18 L, Hgb 9.3 L, Hct 29.2 L, MCV 91.8, MCH 29.2, MCHC 31.8 L, RDW Std Deviation 54.9 H, RDW Coeff of Fior 16.1 H, Plt Count 157, MPV 10.8, Immature Gran % (Auto) 0.200, Neut % (Auto) 59.0, Lymph % (Auto) 23.7, Bay % (Auto) 13.3 H, Eos % (Auto) 3.1, Baso % (Auto) 0.7, Absolute Neuts (auto) 2.4, Absolute Lymphs (auto) 0.98, Nucleated RBC % 0, Sodium 138, Potassium 5.9 H, Chloride 98, Carbon Dioxide 24.4, Anion Gap 16 H, BUN 79 H, Creatinine 8.04 H*, Estim Creat Clear Calc 7.82 L*, Est GFR (MDRD) Non-Af 5 L, BUN/Creatinine Ratio 9.8 L, Glucose 70, Calcium 8.4 07/11/25 06:53: POC Glucose 87 07/11/25 08:05: Sodium 137, Potassium 5.9 H, Chloride 95 L, Carbon Dioxide 28.2, Anion Gap 14, BUN 78 H, Creatinine 7.73 H*, Estim Creat Clear Calc 8.13 L*, Est GFR (MDRD) Non-Af 6 L, BUN/Creatinine Ratio 10.0, Glucose 114 H, Calcium 8.1 Micro: Microbiology 07/11/25 06:01 Wound - Right Foot Skin and Soft Tissue MRSA/MSSA (PCR - Final Rhythm Strip Rhythm Strip: Sinus Rhythm Rate: 68 Ectopy: None Imaging Radiology Impression Hand X-Ray 07/10/25 23:59 IMPRESSION: Unchanged diffuse soft tissue edema and swelling. Reading [facility] [address]
[2025-07-11 12:38] LABS: Anion Gap 13 (5-15); BUN 37 mg/dL (4-19); BUN/Creat Ratio 10.0 RATIO (10-20); Calcium,Total 9.3 mg/dL (7.6-11.0); Carbon Dioxide 25.9 mmol/L (21.0-32.0); Chloride 97 mmol/L (98-108); Estimated Creatinine Clearance 16.30 ml/min (50-250); Glucose 95 mg/dL (70-99); Potassium 4.2 mmol/L (3.3-5.1)
[2025-07-11] MEDS: Aspirin E.C. 81 MG Tablet PO (13:10)
[2025-07-11] MEDS: hydrOXYzine PAM 25 MG Capsule PO (13:10)
--- NOTE | 2025-07-11 15:55 | CASEMGMT ---
JOHN Met with patient to complete LOPEZ form. Despite several attempts, pt would not stay fully engaged in conversation. Patient provided a copy of LOPEZ form and original placed in patient's chart.? This narrative writer will attempt again tomorrow. Rekha Moore, Discharge Planning Asst
--- NOTE | 2025-07-11 16:49 | CASEMGMT ---
RN CM NOTE: Order received for overnight trending pulse ox from Dr Okeefe. Call placed to pulmonary and they were notified this is to be done tonight. Delta LEEN RN CM
--- NOTE | 2025-07-11 16:54 | CASEMGMT ---
Social Work Nurse inquiring if pt can return to [facility] this evening. Per nursing pt will need home oxygen for sleeping. SW informed nursing that pt cannot discharge. Will need an overnight trending pulse ox in order to qualify for home O2. RNCM updated and to place order for this. ERIN Fallon
--- NOTE | 2025-07-11 17:05 | PN_ITS ---
Subjective Subjective Patient seen and examined with her nurse by her bedside. She was having dialysis. She was admitted with a complaint of left upper extremity swelling. However this is chronic and has been going on since she had a left upper extremity fistula inserted and she is due to have a fistulogram done on July 25, 2025 by vascular surgery. However she has been to the ER multiple times because of this chronic swelling. She complains of some mild pain in the left upper extremity. She denies any shortness of breath or palpitations, dizziness, nausea or vomiting. Review of systems otherwise negative. Objective Data Objective Data Vital Signs: Vital Signs Temp Pulse Resp BP Pulse Ox O2 Del Method O2 Flow Rate 97.1 F L 61 14 129/61 H 95 Room Air 2 07/11/25 08:05 07/11/25 11:57 07/11/25 11:57 07/11/25 11:57 07/11/25 11:57 07/11/25 12:05 07/11/25 11:30 Oxygen Flow Rate (L/min) 2 Oxygen Delivery Method Room Air Weight: 167 lb 5.294 oz Body Mass Index (BMI) 27.8 Intake & Output: Intake and Output for Last 24 Hours 07/09/25 07/10/25 07/11/25 23:59 23:59 23:59 Intake Total 1330 / 1330 Output Total 9990 / 9990 Balance -8660 / -8660 Lab / Micro Data 07/11/25 05:40 07/11/25 11:55 Labs: Laboratory Results - last 24 hr 07/11/25 00:00: WBC 5.3, RBC 3.63 L, Hgb 10.6 L, Hct 33.7 L, MCV 92.8, MCH 29.2, MCHC 31.5 L, RDW Std Deviation 55.2 H, RDW Coeff of Fior 16.2 H, Plt Count 186, MPV 11.3, Immature Gran % (Auto) 0.200, Neut % (Auto) 65.5, Lymph % (Auto) 20.7, Payne % (Auto) 9.4, Eos % (Auto) 3.6, Baso % (Auto) 0.6, Absolute Neuts (auto) 3.5, Absolute Lymphs (auto) 1.10, Nucleated RBC % 0, Sodium 136, Potassium 7.3 H*, Chloride 98, Carbon Dioxide 20.7 L, Anion Gap 17 H, BUN 77 H, Creatinine 7.75 H*, Estim Creat Clear Calc 8.17 L*, Est GFR (MDRD) Non-Af 6 L, B UN/Creatinine Ratio 9.9 L, Glucose 175 H, Calcium 7.9, Phosphorus 4.0, Magnesium 2.1 07/11/25 05:40: WBC 4.1 L, RBC 3.18 L, Hgb 9.3 L, Hct 29.2 L, MCV 91.8, MCH 29.2, MCHC 31.8 L, RDW Std Deviation 54.9 H, RDW Coeff of Fior 16.1 H, Plt Count 157, MPV 10.8, Immature Gran % (Auto) 0.200, Neut % (Auto) 59.0, Lymph % (Auto) 23.7, Payne % (Auto) 13.3 H, Eos % (Auto) 3.1, Baso % (Auto) 0.7, Absolute Neuts (auto) 2.4, Absolute Lymphs (auto) 0.98, Nucleated RBC % 0, Sodium 138, P otassium 5.9 H, Chloride 98, Carbon Dioxide 24.4, Anion Gap 16 H, BUN 79 H, C reatinine 8.04 H*, Estim Creat Clear Calc 7.82 L*, Est GFR (MDRD) Non-Af 5 L, B UN/Creatinine Ratio 9.8 L, Glucose 70, Calcium 8.4 07/11/25 06:53: POC Glucose 87 07/11/25 08:05: Sodium 137, Potassium 5.9 H, Chloride 95 L, Carbon Dioxide 28.2, Anion Gap 14, BUN 78 H, Creatinine 7.73 H*, Estim Creat Clear Calc 8.13 L*, Est GFR (MDRD) Non-Af 6 L, BUN/Creatinine Ratio 10.0, Glucose 114 H, Calcium 8.1 07/11/25 11:37: POC Glucose 90 07/11/25 11:55: Sodium 136, Potassium 4.2, Chloride 97 L, Carbon Dioxide 25.9, Anion Gap 13, BUN 37 H, Creatinine 3.74 H, Estim Creat Clear Calc 16.30 L, Est GFR (MDRD) Non-Af 13 L, BUN/Creatinine Ratio 10.0, Glucose 95, Calcium 9.3 07/11/25 16:07: POC Glucose 143 H Micro: Microbiology 07/11/25 06:01 Wound - Right Foot Gram Stain - Final 07/11/25 06:01 Wound - Right Foot Skin and Soft Tissue MRSA/MSSA (PCR - Final Radiography Diagnostic Testing: Radiology Impression Hand X-Ray 07/10/25 23:59 IMPRESSION: Unchanged diffuse soft tissue edema and swelling. Reading Location: [place] [id number] Rhythm Strip Rhythm Strip: Sinus Rhythm Rate: 68 Ectopy: None Physical Exam Const alert and oriented x3 Constitutional Narrative: Patient is frail and weak HEENT normocephalic and oropharynx normal Mouth: dry mucous membranes Eyes EOMs intact bilaterally Neck supple and no JVD Lymph Lymphatic: no lymphedema noted Resp Resp Narrative: Mildly diminished breath sounds bibasilarly. No wheezes or crackles. On room air. Cardio regular rate, regular rhythm, S1 normal heart sound, S2 normal heart sound and no murmurs GI normal to inspection, nondistended, normoactive bowel sounds, soft to palpation and non-tender Extremity Extremity Narrative: fistula in LUE forearm has a weak thrill General Extremity: no tenderness to palpation of joints or extremities Skin General Skin Exam: no breakdown Neuro no focal motor deficits Motor Exam: general weakness Psych cooperative and affect normal Mood & Affect: flat affect Assessment & Plan Assessment/Plan (1) Swelling of left hand: (2) Missed dialysis: (3) End stage chronic kidney disease: PLAN: Plan #Hyperkalemia in the setting of ESRD with missed dialysis * Hyperkalemia has resolved. She had dialysis this morning and hyperkalemia resolved. #Left upper extremity swelling * Likely due to AV fistula. He has had recurrence of left hand and left arm swelling which was thought to be noninfectious and was thought to be due to hematoma. * She does have a weak thrill in the AV fistula. She is due to have a fistulogram done on July 25, 2025. I did speak to Dr. Burciaga about patient and he said he will try to get the patient in next week to move the fistulogram up. #Chronic right foot ulcer: Follows with podiatry on outpatient basis. Continue nonweightbearing status and use of [place] boot. Wound care on board. #History of TIA: On aspirin and statin. #CAD with ischemic cardiomyopathy: On aspirin and statin and Coreg. #History of chronic pain syndrome: On methadone and gabapentin. #Type 2 diabetes mellitus with neuropathy: Oral meds on hold. On Lantus. Insulin sliding scale. Accu-Cheks ACHS. #History of seizure disorder: On Keppra #Hypertension: On Coreg and hydralazine. IV hydralazine as needed #Hyperlipidemia: On statin #Thyroidism: On Synthroid #GERD: PPI #Anxiety and depression: On paroxetine DVT prophylaxis: SCDs. Not anticoagulated due to history of hematoma in the left upper extremity. Charges/Coding Visit Charges Inpatient E&M: 59795 Subs Hosp L2
[2025-07-11] MEDS: MELATONIN 10 MG TABLET PO (22:38)
[2025-07-12] VITALS (20 sets, daily range): BP systolic 135–178; BP diastolic 57–92; PULSE 62–72; RESP 14–18; TEMP 36.6–37; O2SAT 90–97; BMI 27.3; BMI 26.6
[2025-07-12 08:13] LABS: Hematocrit 34.9 % (37-47); Hemoglobin 11.0 g/dL (12.0-15.0); Immature Granulocytes Count 0.020 X10^3/uL (0.0-0.0); Mean Corp Hgb Conc 31.5 g/dL (32-36); Mean Corpuscular Volume 93.6 fL (81-99); Mean Platelet Vol. 10.8 fl (6.2-12.0); NRBC Flagged by Analyzer 0 % (0-5); Platelet Count 204 K/mm3 (150-450); RBC Distribution Width CV 16.2 % (11.6-14.6); RBC Distribution Width SD 55.8 fl (35.1-43.9); Red Blood Count 3.73 M/mm3 (4.2-5.4); White Blood Count 4.5 K/mm3 (4.4-11.0)
[2025-07-12 08:35] LABS: Anion Gap 13 (5-15); BUN 46 mg/dL (4-19); BUN/Creat Ratio 8.4 RATIO (10-20); Calcium,Total 8.3 mg/dL (7.6-11.0); Carbon Dioxide 24.9 mmol/L (21.0-32.0); Chloride 100 mmol/L (98-108); Estimated Creatinine Clearance 11.10 ml/min (50-250); Glucose 116 mg/dL (70-99); Potassium 5.4 mmol/L (3.3-5.1)
--- NOTE | 2025-07-12 09:45 | CASEMGMT ---
Addendum entered by Aliyah Stubbs 07/12/25 10:41: Spoke with hospitalist and gave overnight pox results during rounds. Addendum entered by Aliyah Stubbs 07/12/25 09:47: Spoke with respiratory and pt was below 88% 25% of time. RN CM to speak with hospitalist during rounds. Original Note: Noted overnight pox and confirmed with respiratory that pt passed and did not require oxygen.
[2025-07-12] MEDS: 0.9% Normal Saline 1,000 ML IV.SOLN. 1000 ML OPERA.SITE (11:06)
[2025-07-12] MEDS: PureFlow B 2K Dialysis Soln 1 BAG 6 BAG PF (11:06)
[2025-07-12] MEDS: 0.9% Saline Lock 10 ML Syringe IV ×2 (11:07)
--- NOTE | 2025-07-12 11:30 | CASEMGMT ---
RN CM into pt room, pt lying in bed with dialysis nurse present at bedside. Discussed with pt that she requires 2L of oxygen at per hospitalist. Provided pt with a verbal local in network list of DME providers, pt states she has no preference. Pt is aware of oxygen. Pt states she does not have a pox. She is aware of where she can obtain this. Pt denies any questions regarding oxygen. Asked her to notify [facility] once she arrives at [facility]. Spoke with pt nurse who states pt does not ambulate, therefore no ambulatory pox will be completed. Referral sent to [facility] via [facility] at this time.
[2025-07-12] MEDS: Aspirin E.C. 81 MG Tablet PO (11:40)
[2025-07-12] MEDS: hydrOXYzine PAM 25 MG Capsule PO (12:31)
--- NOTE | 2025-07-12 15:01 | TREXTCAR_ITS ---
Diet Diet Order/Speech Therapy: INPATIENT Hospital Diet / Speech Therapy Order(s) 07/11/25 14:56 Diet: Renal - General Food consistency:: Regular Liquid Consistency:: Regular/Thin Type of Dietary Supplement:: Ted Diet Comments: no pork; tde with breakfast and dinner Routine Orders/Code Status Enema Type: Fleetz Enema Frequency: Daily PRN Suppository Type: Dulcolax 10mg Suppository Frequency: Daily PRN DC O2, CPAP, BIPAP needs Home O2 Discharge instructions: Yes Type of respiratory needs?: Oxygen Oxygen frequency: With Sleeping Oxygen liters per minute when sleepin Wound(s) lt hand: Wound Type: wound, previous I&D R ankle: Wound Type: Neuropathic/Diabetic Foot Ulcer Therapies Weight Bearing: Weight bearing as tolerated Physical Therapy: Eval and Treat Occupational Therapy: Eval and Treat Problem/Diagnosis (1) Swelling of left hand: Status: Acute Code(s): M79.89 - Other specified soft tissue disorders (2) Missed dialysis: Status: Acute (3) End stage chronic kidney disease: Status: Chronic Code(s): N18.6 - End stage renal disease Plan #Hyperkalemia in the setting of ESRD with missed dialysis * Hyperkalemia has resolved. She had dialysis this morning and hyperkalemia resolved. #Left upper extremity swelling * Likely due to AV fistula. He has had recurrence of left hand and left arm swelling which was thought to be noninfectious and was thought to be due to hematoma. * She does have a weak thrill in the AV fistula. She is due to have a fistulogram done on July 25, 2025. I did speak to Dr. Burciaga about patient and he said he will try to get the patient in next week to move the fistulogram up. #Chronic right foot ulcer: Follows with podiatry on outpatient basis. Continue nonweightbearing status and use of [place] boot. Wound care on board. #History of TIA: On aspirin and statin. #CAD with ischemic cardiomyopathy: On aspirin and statin and Coreg. #History of chronic pain syndrome: On methadone and gabapentin. #Type 2 diabetes mellitus with neuropathy: Oral meds on hold. On Lantus. Insulin sliding scale. Accu-Cheks ACHS. #History of seizure disorder: On Keppra #Hypertension: On Coreg and hydralazine. IV hydralazine as needed #Hyperlipidemia: On statin #Thyroidism: On Synthroid #GERD: PPI #Anxiety and depression: On paroxetine DVT prophylaxis: SCDs. Not anticoagulated due to history of hematoma in the left upper extremity. Allergies/Procedures Done in Hospital Allergies fentanyl Allergy (Verified 07/10/25 23:12) Other Penicillins Allergy (Verified 07/10/25 23:12) swelling in throat vancomycin Allergy (Verified 07/10/25 23:12) Itching metronidazole Adverse Reaction (Verified 07/10/25 23:12) Nausea Procedures: None Type of Care/Length of Stay Estimated LOS: Convalescent Care Less Than 30 days Type of Care Needed: Skilled Rehab Potential: Fair Prognosis: Fair Additional Orders/Day of Discharge Day of Discharge: 07/12/25 Dietary and Speech Recommendations Dietitian Recommendations/Changes: Adjust to renal general diet to manage medical conditions. Will order ted BID with breakfast and dinner. Will monitor weight trends. At time of discharge recommend renal general diet/dialysis RDN recommendations based on future labs. Discharge Plan Admission Admit Date/Time: 07/11/25 02:52 Primary Reason for Your Visit: hyperkalemia, fluid overload due to missed dialysis Attending Provider: Rachel Okeefe Primary Care Provider: Pat Hughes CR[employer] UNION FIELD EXAMINER Consulting Providers: Ashely Barakat; Angel Joel Instructions Patient Instructions: Hyperkalemia Dc Discharge Orders/Prescriptions Prescriptions: Continued levetiracetam 500 mg tablet 500 mg PO BID ondansetron HCl 4 mg tablet 4 mg PO Q8H PRN (Reason: nausea and vomiting) pantoprazole 40 mg tablet,delayed release (DR/EC) 40 mg PO BIDCM carvedilol 25 mg tablet 12.5 mg PO QHS insulin lispro [Humalog KwikPen Insulin] 100 unit/mL Insulin Pen See Protocol subcut [facility] Protocol: 6. Sliding Scale Insulin Custom Condition: 150-200 Dose/Route: 2u Condition: 201-250 Dose/Route: 4u Condition: 251-300 Dose/Route: 6u Condition: 301-350 Dose/Route: 8u Condition: 351-400 Dose/Route: 10u Condition: 401-450 Dose/Route: 12u Condition: 451 or above Instruction: call physician Protocol Text: Custom Sliding Scale L.acidoph,saliva-B.bif-S.therm 175 mg Capsule 1 cap PO 4X/DAY Qty: 0 0RF hydralazine 100 mg tablet 100 mg PO SUTUTHSA Rx Instructions: do not give on dialysis days hydroxyzine HCl 25 mg tablet 25 mg PO DAILY Rx Instructions: in afternoon atorvastatin [Lipitor] 40 mg tablet 40 mg PO QHS methadone 5 mg tablet 2.5 mg PO BID PRN (Reason: pain) aspirin [Enteric Coated Aspirin] 81 mg tablet,delayed release (DR/EC) 81 mg PO DAILY diazepam 2 mg tablet 2 mg PO QHS levetiracetam 250 mg tablet 250 mg PO .COMPLEX Rx Instructions: 250 mg orally mowefr hs with 500mg; melatonin 10 mg capsule 10 mg PO QHS Patient Comments: mar states pt taking both strengths paroxetine HCl 30 mg tablet 30 mg PO QHS (DME) FreeStyle Puneet 2 Sensor Kit MISCELLANEOUS Patient Comments: [NO ORIGINAL SIG] Insta-Glucose (with dextrin) 24 gram/31 gram gel 24 g PO PER PKG DIR PRN (Reason: blood sugar) Rx Instructions: swallow contents of entire tube; may swallow contents of another tube if no response after 10 minutes bs <60 levothyroxine 25 mcg tablet 25 mcg PO DAILY Patient Comments: TAKE 1 TABLET BY MOUTH EVERY DAY BEFORE BREAKFAST melatonin 5 mg capsule 5 mg PO QHS Patient Comments: mar states pt taking both strengths carvedilol [Coreg] 12.5 mg tablet 12.5 mg PO SUTUTHSA Rx Instructions: must administer with a meal/food DO NOT ADMINISTER BEFORE DIALYSIS hydralazine 100 mg tablet 100 mg PO BID sucralfate 1 gram Tablet 1 g PO ACHS acetaminophen 500 mg capsule 1,000 mg PO QHS PRN (Reason: pain) clobetasol-propionate 1 applic topical BID PRN (Reason: rash) insulin lispro [Humalog KwikPen Insulin] 100 unit/mL insulin pen 5 unit subcut ACHS gabapentin 300 mg capsule 300 mg PO TID 30 Days Qty: 90 0RF Referrals / Follow Up: Valerio Alvarado DO [Med Staff - Active Staff, Pulmonary Medicine] - Within 2 Weeks Referral Note: see to establish care for probable sleep apnea Kali Burciaga MD [Med Staff - Active Staff, Vascular Surgery] - Within 1 Week Angel Joel MD [Med Staff - Consulting, Nephrology] - Within 1 Week Pat Hughes CREDIT UNION FIELD EXAMINER, CREDIT UNION FIELD EXAMINER-C [Primary Care Provider, Medical] - Within 1 Week Disposition Disposition (needs filled in before D/C Order can be placed): Care Home Facility
--- NOTE | 2025-07-12 15:03 | DS.PCM_ITS ---
Providers Date of Admission: 07/11/25 Date of Discharge: 07/12/25 Primary Care Physician: Pat Hughes, [employer]-C Consultations 07/11/25 03:59 Consult: Hot Knife Cutter / Pulmonary Medicine Routine Consulting Provider: Intensivists/Pulmonary Med Reason for Consult: Missed HD, Hyperkalemia > 7 EMERGENT Consult: No Notified: Yes Date Notified: 07/11/25 Time Notified: 06:07 Method of Notification: Text Consult: Nephrology Routine Consulting Provider: Angel Joel Reason for Consult: Missed HD, Hyperkalemia EMERGENT Consult: No Notified: Yes Date Notified: 07/11/25 Time Notified: 08:00 Method of Notification: Answering Service Consult: Onc/Wound/computerized table cutter Routine Comment: Reason for Consult:: Diabetic foot wound Reason For Visit: HYPERKALEMIA, MISSED HD, L HAND RECURRENT Diagnosis Discharge Diagnosis (1) Swelling of left hand: Status: Acute Code(s): M79.89 - Other specified soft tissue disorders (2) Missed dialysis: Status: Acute (3) End stage chronic kidney disease: Status: Chronic Code(s): N18.6 - End stage renal disease Plan #Hyperkalemia in the setting of ESRD with missed dialysis * Hyperkalemia has resolved. She had dialysis this morning and hyperkalemia resolved. #Left upper extremity swelling * Likely due to AV fistula. He has had recurrence of left hand and left arm swelling which was thought to be noninfectious and was thought to be due to hematoma. * She does have a weak thrill in the AV fistula. She is due to have a fistulogram done on July 25, 2025. I did speak to Dr. Burciaga about patient and he said he will try to get the patient in next week to move the fistulogram up. #Chronic right foot ulcer: Follows with podiatry on outpatient basis. Continue nonweightbearing status and use of [place] boot. Wound care on board. #History of TIA: On aspirin and statin. #CAD with ischemic cardiomyopathy: On aspirin and statin and Coreg. #History of chronic pain syndrome: On methadone and gabapentin. #Type 2 diabetes mellitus with neuropathy: Oral meds on hold. On Lantus. Insulin sliding scale. Accu-Cheks ACHS. #History of seizure disorder: On Keppra #Hypertension: On Coreg and hydralazine. IV hydralazine as needed #Hyperlipidemia: On statin #Thyroidism: On Synthroid #GERD: PPI #Anxiety and depression: On paroxetine DVT prophylaxis: SCDs. Not anticoagulated due to history of hematoma in the left upper extremity. Medications at Discharge Home Medications pantoprazole 40 mg tablet,delayed release 40 mg PO BIDCM GERD 07/19/22 levothyroxine 25 mcg tablet 25 mcg PO DAILY thyroid 12/16/23 insulin lispro 100 unit/mL subcutaneous pen (Humalog KwikPen (U-100) Insulin) See Protocol subcut ACHS blood sugar 09/13/24 L.acidophil,salivari-Bifido bifidum-Strep thermoph 175 mg capsule 1 cap PO 4X/DAY probiotic #0 caps 09/21/24 carvedilol 25 mg tablet 12.5 mg PO QHS blood pressure 12/06/24 levetiracetam 500 mg tablet 500 mg PO BID seizures 12/06/24 ondansetron HCl 4 mg tablet 4 mg PO Q8H PRN nausea and vomiting 02/28/25 carvedilol 12.5 mg tablet (Coreg) 12.5 mg PO SUTUTHSA 03/18/25 hydralazine 100 mg tablet 100 mg PO BID bp 03/18/25 melatonin 5 mg capsule 5 mg PO QHS sleep 03/18/25 sucralfate 1 gram tablet 1 g PO ACHS indigestion 03/18/25 acetaminophen 500 mg capsule 1,000 mg PO QHS PRN pain 04/11/25 clobetasol-propionate 1 applic topical BID PRN rash 04/11/25 insulin lispro 100 unit/mL subcutaneous pen (Humalog KwikPen (U-100) Insulin) 5 unit subcut ACHS blood sugar 04/11/25 gabapentin 300 mg capsule 300 mg PO TID pain 30 days #90 caps 05/02/25 hydralazine 100 mg tablet 100 mg PO SUTUTHSA bp 05/28/25 atorvastatin 40 mg tablet (Lipitor) 40 mg PO QHS cholesterol 06/04/25 hydroxyzine HCl 25 mg tablet 25 mg PO DAILY 06/04/25 methadone 5 mg tablet 2.5 mg PO BID PRN pain 06/04/25 aspirin 81 mg tablet,delayed release (Enteric Coated Aspirin) 81 mg PO DAILY 09/15/25 bocaqhsg-xadfdzx-maijrfc 24 gram/31 gram oral gel (Insta-Glucose (with dextrin)) 24 g PO PER PKG DIR PRN blood sugar 06/24/25 diazepam 2 mg tablet 2 mg PO QHS 06/24/25 flash glucose sensor (FreeStyle [place] 2 Sensor kit) 06/24/25 levetiracetam 250 mg tablet 250 mg PO .COMPLEX 06/24/25 melatonin 10 mg capsule 10 mg PO QHS 06/24/25 paroxetine HCl 30 mg tablet 30 mg PO QHS 06/24/25 Hospital Course Operations None Procedures Dialysis Summary of Care Provided Minutes Spent on Discharge: 45 Hospital Course: Patient is a 60-year-old female with a past medical history as outlined including ESRD on hemodialysis Mondays and Wednesdays and Fridays who was admitted through the ED on 07/11/2025 with a complaint of pain and discomfort in her left upper extremity for about 2 weeks prior to admission. She had been seen in the ED 2 weeks prior to admission and there was concern for possible hematoma with unremarkable growth. She had had an I&D done then. However she had the swelling again so she came into the ED. She had had this issue since she had an AV fistula placed in the left upper extremity. She missed dialysis on the day of admission. Plain x-ray of the hand showed no acute pathology. She was admitted to be managed for hyperkalemia as potassium was 7.3. However this was hemolyzed and this was thought to be due to her missed dialysis also. She was admitted to the ICU to be managed for fluid overload and hyperkalemia in the setting of missed dialysis as well as left upper extremity pain and swelling. Nephrology was consulted and she did have dialysis. Her hyperkalemia resolved with the dialysis as expected. I did discuss with vascular surgery about reviewing care as patient was scheduled for outpatient AV fistulogram on July 25, 2025. I spoke to vascular surgery who stated that they would move patient up to have the procedure the following week after she was discharged. Patient was therefore discharged back to her assisted living facility on 07/12/2025. She is follow-up with her primary care doctor within 1 to 2 weeks. Of note, apparently her facility had requested that she have an overnight pulse oximetry done. This was done and showed that patient was desaturating at least 25% of the time during the night. This was done without any oxygen. I discussed these findings with hardwood floor finisher Dr. Alvarado who recommended that patient should be discharged on 2 L of oxygen to be used at night and to follow- up with pulmonology on outpatient basis for further testing. Patient seen and examined prior to discharge. She had no active complaints. The pain in her left upper extremity had improved. Review of systems otherwise negative. Labs and vitals reviewed. Home medication reviewed and reconciled. Physical Exam Const alert and oriented x3 Constitutional Narrative: Patient is frail and weak General Appearance: cooperative HEENT normocephalic, head/scalp atraumatic, hearing grossly normal bilaterally and oropharynx normal Mouth: oral and palatal mucosa normal Eyes EOMs intact bilaterally and conjunctivae normal Neck supple and no JVD Lymph Lymphatic: no lymphedema noted Resp Resp Narrative: Mildly diminished breath sounds bibasilarly. No wheezes or crackles. On room air. Cardio regular rate, regular rhythm, S1 normal heart sound, S2 normal heart sound and no murmurs GI normal to inspection, nondistended, normoactive bowel sounds, soft to palpation and non-tender Extremity Extremity Narrative: fistula in LUE forearm has a weak thrill General Extremity: no tenderness to palpation of joints or extremities Skin General Skin Exam: no breakdown Neuro no focal motor deficits Motor Exam: general weakness Psych cooperative and affect normal Mood & Affect: flat affect Weight / BMI Weight Weight: 159 lb 9.835 oz Body Mass Index (BMI) 26.6 ABG / Lab / Microbiology Data 07/12/25 08:00 07/12/25 08:00 Laboratory: Laboratory Results - last 24 hr 07/11/25 22:34: POC Glucose 118 H 07/12/25 06:21: POC Glucose 157 H 07/12/25 08:00: WBC 4.5, RBC 3.73 L, Hgb 11.0 L, Hct 34.9 L, MCV 93.6, MCH 29.5, MCHC 31.5 L, RDW Std Deviation 55.8 H, RDW Coeff of Fior 16.2 H, Plt Count 204, MPV 10.8, Immature Gran % (Auto) 0.400, Neut % (Auto) 66.4, Lymph % (Auto) 17.9 L, [place] % (Auto) 10.1 H, Eos % (Auto) 4.5, Baso % (Auto) 0.7, Absolute Neuts (auto) 3.0, Absolute Lymphs (auto) 0.80 L, Nucleated RBC % 0, Sodium 138, P otassium 5.4 H, Chloride 100, Carbon Dioxide 24.9, Anion Gap 13, BUN 46 H, C reatinine 5.44 H, Estim Creat Clear Calc 11.10 L, Est GFR (MDRD) Non-Af 8 L, B UN/Creatinine Ratio 8.4 L, Glucose 116 H, Calcium 8.3 07/12/25 11:44: POC Glucose 101 Microbiology: Microbiology 07/11/25 06:01 Wound - Right Foot Gram Stain - Final 07/11/25 06:01 Wound - Right Foot Skin and Soft Tissue MRSA/MSSA (PCR - Final D/C Instructions Discharge Activity: Return to Normal Activity Weight Bearing Status: Weight bearing as tolerated Call your doctor if you observe: Fever of 101 or Higher, Shortness of breath, Dizziness, Swelling in the ankles and Chest pain DC O2, CPAP, BIPAP Needs Home O2 Discharge instructions: Yes Type of respiratory needs?: Oxygen Oxygen frequency: With Sleeping Oxygen liters per minute when sleepin DC home with Oxygen: Yes Home O2 MD Review: I have reviewed the oxygen testing, and the patient qualifies for home oxygen equipment and portability. The patient is mobile in the home and the community. Meaningful Use Info Meaningful Use Meaningful Use Diagnoses (Choose all that apply): None applicable Discharge Plan Admission Admit Date/Time: 07/11/25 02:52 Primary Reason for Your Visit: hyperkalemia, fluid overload due to missed dialysis Attending Provider: Rachel Okeefe Primary Care Provider: Pta Hughes [employer] DEAN Consulting Providers: Ashely Barakat; Angel Joel Instructions Patient Instructions: Hyperkalemia Dc Discharge Orders/Prescriptions Prescriptions: Continued levetiracetam 500 mg tablet 500 mg PO BID ondansetron HCl 4 mg tablet 4 mg PO Q8H PRN (Reason: nausea and vomiting) pantoprazole 40 mg tablet,delayed release (DR/EC) 40 mg PO BIDCM carvedilol 25 mg tablet 12.5 mg PO QHS insulin lispro [Humalog KwikPen Insulin] 100 unit/mL Insulin Pen See Protocol subcut ACHS Protocol: 6. Sliding Scale Insulin Custom Condition: 150-200 Dose/Route: 2u Condition: 201-250 Dose/Route: 4u Condition: 251-300 Dose/Route: 6u Condition: 301-350 Dose/Route: 8u Condition: 351-400 Dose/Route: 10u Condition: 401-450 Dose/Route: 12u Condition: 451 or above Instruction: call physician Protocol Text: Custom Sliding Scale L.acidoph,saliva-B.bif-S.therm 175 mg Capsule 1 cap PO 4X/DAY Qty: 0 0RF hydralazine 100 mg tablet 100 mg PO SUTUTHSA Rx Instructions: do not give on dialysis days hydroxyzine HCl 25 mg tablet 25 mg PO DAILY Rx Instructions: in afternoon atorvastatin [Lipitor] 40 mg tablet 40 mg PO QHS methadone 5 mg tablet 2.5 mg PO BID PRN (Reason: pain) aspirin [Enteric Coated Aspirin] 81 mg tablet,delayed release (DR/EC) 81 mg PO DAILY diazepam 2 mg tablet 2 mg PO QHS levetiracetam 250 mg tablet 250 mg PO .COMPLEX Rx Instructions: 250 mg orally mowefr hs with 500mg; melatonin 10 mg capsule 10 mg PO QHS Patient Comments: mar states pt taking both strengths paroxetine HCl 30 mg tablet 30 mg PO QHS (DME) FreeStyle Puneet 2 Sensor Kit MISCELLANEOUS Patient Comments: [NO ORIGINAL SIG] Insta-Glucose (with dextrin) 24 gram/31 gram gel 24 g PO PER PKG DIR PRN (Reason: blood sugar) Rx Instructions: swallow contents of entire tube; may swallow contents of another tube if no response after 10 minutes bs <60 levothyroxine 25 mcg tablet 25 mcg PO DAILY Patient Comments: TAKE 1 TABLET BY MOUTH EVERY DAY BEFORE BREAKFAST melatonin 5 mg capsule 5 mg PO QHS Patient Comments: mar states pt taking both strengths carvedilol [Coreg] 12.5 mg tablet 12.5 mg PO SUTUTHSA Rx Instructions: must administer with a meal/food DO NOT ADMINISTER BEFORE DIALYSIS hydralazine 100 mg tablet 100 mg PO BID sucralfate 1 gram Tablet 1 g PO ACHS acetaminophen 500 mg capsule 1,000 mg PO QHS PRN (Reason: pain) clobetasol-propionate 1 applic topical BID PRN (Reason: rash) insulin lispro [Humalog KwikPen Insulin] 100 unit/mL insulin pen 5 unit subcut ACHS gabapentin 300 mg capsule 300 mg PO TID 30 Days Qty: 90 0RF Referrals / Follow Up: Valerio Alvarado DO [Med Staff - Active Staff, Pulmonary Medicine] - Within 2 Weeks Referral Note: see to establish care for probable sleep apnea Kali Burciaga MD [Med Staff - Active Staff, Vascular Surgery] - Within 1 Week Angel Joel MD [Med Staff - Consulting, Nephrology] - Within 1 Week Pat Hughes [employer]UD[employer] DEAN, STUD[employer] DEAN-C [Primary Care Provider, Medical] - Within 1 Week Disposition Disposition (needs filled in before D/C Order can be placed): Assisted Living Charges/Coding Visit Charges Inpatient E&M: 99592 Disch Hosp >30min
--- NOTE | 2025-07-12 15:24 | PN.RENAL_ITS ---
Subjective Subjective no new events Objective Data Objective Data Vital Signs: Vital Signs Temp Pulse Resp BP Pulse Ox O2 Del Method O2 Flow Rate 98.4 F 68 14 135/72 H 94 Room Air 1 07/12/25 11:20 07/12/25 12:32 07/12/25 11:20 07/12/25 12:32 07/12/25 11:20 07/12/25 11:20 07/11/25 20:50 FiO2 21 07/12/25 07:25 Oxygen Flow Rate (L/min) 1 Oxygen Delivery Method Room Air Weight: 72.4 kg Body Mass Index (BMI) 26.6 Intake & Output: Intake and Output for Last 24 Hours 07/10/25 07/11/25 07/12/25 23:59 23:59 23:59 Intake Total 1330 / 1330 Output Total 9990 / 9990 2069 Balance -8660 / -8660 -2069 / -2069 Lab / Micro Data 07/12/25 08:00 07/12/25 08:00 Labs: Laboratory Results - last 24 hr 07/11/25 16:07: POC Glucose 143 H 07/11/25 22:34: POC Glucose 118 H 07/12/25 06:21: POC Glucose 157 H 07/12/25 08:00: WBC 4.5, RBC 3.73 L, Hgb 11.0 L, Hct 34.9 L, MCV 93.6, MCH 29.5, MCHC 31.5 L, RDW Std Deviation 55.8 H, RDW Coeff of Fior 16.2 H, Plt Count 204, MPV 10.8, Immature Gran % (Auto) 0.400, Neut % (Auto) 66.4, Lymph % (Auto) 17.9 L, [place] % (Auto) 10.1 H, Eos % (Auto) 4.5, Baso % (Auto) 0.7, Absolute Neuts (auto) 3.0, Absolute Lymphs (auto) 0.80 L, Nucleated RBC % 0, Sodium 138, P otassium 5.4 H, Chloride 100, Carbon Dioxide 24.9, Anion Gap 13, BUN 46 H, C reatinine 5.44 H, Estim Creat Clear Calc 11.10 L, Est GFR (MDRD) Non-Af 8 L, B UN/Creatinine Ratio 8.4 L, Glucose 116 H, Calcium 8.3 Micro: Microbiology 07/11/25 06:01 Wound - Right Foot Gram Stain - Final 07/11/25 06:01 Wound - Right Foot Skin and Soft Tissue MRSA/MSSA (PCR - Final Rhythm Strip Rhythm Strip: Sinus Rhythm Rate: 68 Ectopy: None Physical Exam Narrative Alert and oriented x 3, no apparent distress S1, S2, RRR Breath sounds clear Abdomen soft, nontender No pitting edema to legs; dressing to right foot Tunneled hemodialysis catheter accessed for dialysis Left upper arm AV fistula faint thrill and bruit. Edema noted to left arm and hand Assessment & Plan Assessment/Plan (1) End stage chronic kidney disease: (2) Acute hyperkalemia: (3) Swelling of left hand: PLAN: Plan ESRD on hemodialysis Tuesday, patient did not dialyze yesterday therefore we will plan for dialysis today on 2K bath and attempt fluid removal as patient/blood pressure tolerates. Will plan for dialysis again tomorrow if patient is still in hospital. Patient will need to be seen by vascular for recurrent left arm and hand swelling. We will make contact with patient's outpatient hemodialysis center tomorrow when they are open. We will continue to use the tunneled hemodialysis catheter for dialysis while patient is in hospital. Further orders forthcoming as hospitalization evolves, thank you for allowing us to participate in the care of Ms. Carrillo. Assessment and plan reviewed with Dr. Joel. 07/12/25. HD today. see orders
--- NOTE | 2025-07-12 15:25 | CASEMGMT ---
Addendum entered by Georgia Williamson 07/12/25 16:22: Pt to be picked up at 4:30PM by [facility] wheelchair transport per bedside nurse, who received return call. ERIN Johnson Original Note: Social Work- SW received notice of discharge. LUCRETIA updated pt. LUCRETIA called Suzanna Suero. LUCRETIA faxed d/c to [facility] and to [facility] CM. LUCRETIA called and left Latonia a voicemail. LUCRETIA called [facility] to request transport. [facility] will call the floor with transport time. Bedside nurse notified. Plan: Suzanna Suero [place] ERIN Johnson
--- NOTE | 2025-07-12 15:52 | PHA.DC.MR.R ---
Pharmacy [place] Med Reconciliation Pharmacy Service has performed discharge medication reconciliation for this patient. The patient's discharge medication list was reviewed for discrepancies and discrepancies were resolved. Medications at Discharge Home Medications pantoprazole 40 mg tablet,delayed release 40 mg PO BIDCM GERD 07/19/22 levothyroxine 25 mcg tablet 25 mcg PO DAILY thyroid 12/16/23 insulin lispro 100 unit/mL subcutaneous pen (Humalog KwikPen (U-100) Insulin) See Protocol subcut ACHS blood sugar 09/13/24 L.acidophil,salivari-Bifido bifidum-Strep thermoph 175 mg capsule 1 cap PO 4X/DAY probiotic #0 caps 09/21/24 carvedilol 25 mg tablet 12.5 mg PO QHS blood pressure 12/06/24 levetiracetam 500 mg tablet 500 mg PO BID seizures 12/06/24 ondansetron HCl 4 mg tablet 4 mg PO Q8H PRN nausea and vomiting 02/28/25 carvedilol 12.5 mg tablet (Coreg) 12.5 mg PO SUTUTHSA 03/18/25 hydralazine 100 mg tablet 100 mg PO BID bp 03/18/25 melatonin 5 mg capsule 5 mg PO QHS sleep 03/18/25 sucralfate 1 gram tablet 1 g PO ACHS indigestion 03/18/25 acetaminophen 500 mg capsule 1,000 mg PO QHS PRN pain 04/11/25 clobetasol-propionate 1 applic topical BID PRN rash 04/11/25 insulin lispro 100 unit/mL subcutaneous pen (Humalog KwikPen (U-100) Insulin) 5 unit subcut ACHS blood sugar 04/11/25 gabapentin 300 mg capsule 300 mg PO TID pain 30 days #90 caps 05/02/25 hydralazine 100 mg tablet 100 mg PO SUTUTHSA bp 05/28/25 atorvastatin 40 mg tablet (Lipitor) 40 mg PO QHS cholesterol 06/04/25 hydroxyzine HCl 25 mg tablet 25 mg PO DAILY 06/04/25 methadone 5 mg tablet 2.5 mg PO BID PRN pain 06/04/25 aspirin 81 mg tablet,delayed release (Enteric Coated Aspirin) 81 mg PO DAILY 06/24/25 bfhbxpfq-zswrnbj-iloodlv 24 gram/31 gram oral gel (Insta-Glucose (with dextrin)) 24 g PO PER PKG DIR PRN blood sugar 06/24/25 diazepam 2 mg tablet 2 mg PO QHS 06/24/25 flash glucose sensor (FreeStyle Puneet 2 Sensor kit) 06/24/25 levetiracetam 250 mg tablet 250 mg PO .COMPLEX 06/24/25 melatonin 10 mg capsule 10 mg PO QHS 06/24/25 paroxetine HCl 30 mg tablet 30 mg PO QHS 06/24/25
== END 2025-07-12 16:24 | disposition home or self-care (01) ==
LOC: ED 07-11 02:36 → ICU 07-11 07:12 → MS3 07-11 18:24
PROVIDERS: Admitting Provider Family Medicine; Emergency Provider Emergency Medicine; PCP Nurse Practitioner Adult Health; Visit Provider Student in an Organized Health Care Education/Training Program
DX: E87.5 Hyperkalemia (principal); L97.523 Non-pressure chronic ulcer of other part of left foot with necrosis of muscle; N18.6 End stage renal disease; I12.0 Hypertensive chronic kidney disease with stage 5 chronic kidney disease or end stage renal disease; E11.621 Type 2 diabetes mellitus with foot ulcer; E11.622 Type 2 diabetes mellitus with other skin ulcer; L97.312 Non-pressure chronic ulcer of right ankle with fat layer exposed; L97.929 Non-pressure chronic ulcer of unspecified part of left lower leg with unspecified severity; Z89.431 Acquired absence of right foot; Z89.432 Acquired absence of left foot; G40.909 Epilepsy, unspecified, not intractable, without status epilepticus; Z79.4 Long term (current) use of insulin; E11.610 Type 2 diabetes mellitus with diabetic neuropathic arthropathy; E11.22 Type 2 diabetes mellitus with diabetic chronic kidney disease; E11.42 Type 2 diabetes mellitus with diabetic polyneuropathy; E78.5 Hyperlipidemia, unspecified; M79.642 Pain in left hand; I25.10 Atherosclerotic heart disease of native coronary artery without angina pectoris; I25.5 Ischemic cardiomyopathy; F41.9 Anxiety disorder, unspecified; Z99.2 Dependence on renal dialysis; N25.81 Secondary hyperparathyroidism of renal origin; D63.8 Anemia in other chronic diseases classified elsewhere; K21.9 Gastro-esophageal reflux disease without esophagitis; Z79.899 Other long term (current) drug therapy; Z79.890 Hormone replacement therapy; Z79.82 Long term (current) use of aspirin; E03.9 Hypothyroidism, unspecified; G89.4 Chronic pain syndrome; M79.89 Other specified soft tissue disorders; S60.222A Contusion of left hand, initial encounter; X58.XXXA Exposure to other specified factors, initial encounter
CPT/HCPCS: 10140; 73130; 80048; 82962; 83735; 84100; 85025; 87070; 87186; 87205; 87640; 90937; 93005; 94640; 94762; 96365; 96366; 96367; 96375; 96376; 97802; 99221; 99283; 99284; A4216; G0257; G0378; J0612; J2405

== ENCOUNTER → 2025-07-16 | Outpatient (CLI) | payer MEDICARE, MEDICAID, SELFPAY ==
[2018-09-21 13:23] VITALS: BMI 29.3
[2025-07-16 17:22] LABS: Barbiturate Urine NEGATIVE (< 200 ng/mL); Benzodiazepine Urine PRESUMPTIVE POSITIVE (< 200 ng/mL); PCP Urine NEGATIVE (< 25 ng/mL); THC Urine NEGATIVE (< 50 ng/mL)
== END | disposition home or self-care (01) ==
LOC: LAB 15:58
PROVIDERS: PCP Nurse Practitioner Adult Health; Referring Provider Anesthesiology Pain Medicine; Visit Provider Anesthesiology Pain Medicine
DX: F11.20 Opioid dependence, uncomplicated (principal)
CPT/HCPCS: 80307

== ENCOUNTER 2025-07-17 00:37 | Emergency (ER) | payer MEDICARE, MEDICAID, SELFPAY ==
[2018-09-21 13:23] VITALS: BMI 29.3
[2025-07-17 00:39] VITALS: BP 187/87; PULSE 77; RESP 26; TEMP 36.8; O2SAT 94; BMI 30.1
--- NOTE | 2025-07-17 00:59 | CT_ITS ---
PROCEDURE: SPINE LUMBAR WITHOUT CONTRAST 07/17/2025 REASON FOR EXAM: FALL/PAIN TECHNIQUE: Procedure Code: CTSPL Modality: CT Procedure: SPINE LUMBAR WITHOUT CONTRAST Coronal and Sagittal reconstruction series were provided. One or more dose reduction techniques were used (e.g., Automated exposure control, adjustment of the mA and/or kV according to patient size, use of iterative reconstruction technique COMPARISON: CT scan on 12/01/2023. RADIATION DOSE SUMMARY: CTDlvol: 17.73 mGy DLP: 630 mGycm FINDINGS: Small right pleural effusion with right basilar atelectasis. Normal lumbar lordosis. There is no substantial scoliosis. The patient is status post interpedicular screw and elinor fixation in the lower thoracic and upper lumbar vertebrae. Prostatic metallic cages seen at the T12 and L1 vertebrae. There is fusion at that level. Limited assessment of the T12 vertebra due to the metallic artifact from the surgical procedure. L1-2: Intraventricular screw fixation. Metallic cages seen in the superior aspect of the L1 vertebrae. L2-3: Normal endplates. Normal disc height and morphology. Normal bilateral facet joints. Normal central canal and bilateral lateral recesses. Normal bilateral intervertebral neural foramina. L3-4: Facet joint osteoarthritis. Fbbe-dr-nllbgmff diffuse posterior disc bulge. L4-5: Moderate degree of facet joint osteoarthritis and hypertrophy. Diffuse posterior disc bulge. Moderate degree of bilateral neural foraminal stenosis. Central canal stenosis due to hypertrophy of the ligamenta flava as well as the facet joints and diffuse posterior disc bulge. L5-S1: Disc space narrowing. No significant stenosis is seen. Normal visualized paraspinous soft tissue structures. CT/Spine Lumbar without Contrast IMPRESSION: No CT evidence of an acute bone abnormality. Reading [facility] [id number]
--- NOTE | 2025-07-17 01:20 | RAD_ITS ---
PROCEDURE: HIP, UNI W/ PELVIS 2-3 VIEWS 07/17/2025 REASON FOR EXAM: PAIN TECHNIQUE: Procedure Code: [facility] Modality: DX Procedure: HIP, UNI W/ PELVIS 2-3 VIEWS Laterality: Bilateral COMPARISON: None. FINDINGS: Mild osteopenia of the visualized bones. Degenerative joint disease. No fracture or dislocation is seen. No lytic or blastic bone lesion is noted. RAD/HIP, UNI W/ Pelvis 2-3 Views IMPRESSION: No evidence for acute abnormality. Reading Location[facility]
--- NOTE | 2025-07-17 02:15 | EDS_ITS ---
HPI History of Present Illness Chief Complaint: Fall Informant: patient and EMS Narrative Narrative: Patient is a 60-year-old female from the [place] with past medical history of end-stage renal disease on dialysis as well as previous TIA on aspirin and chronic pain on methadone and gabapentin. Patient states that this evening she was up with her walker when she fell asleep. This caused her to fall and she states she awoke when she hit the ground. She states she landed directly on her buttocks and rolled backward. She denies striking her head or any loss of consciousness. She states she has had pain in her low back as well as bilateral hips since the fall. She also reports that she has been out of her methadone for the past 1 to 2 days. Therefore with the concern for underlying fracture from the fall and her increasing pain as she is out of her methadone EMS was called and she was brought in for evaluation [facility] Medical History Swelling of left hand History of diabetes mellitus Missed dialysis End stage chronic kidney disease ESRD on dialysis History of stress test History of echocardiogram History of transesophageal echocardiography (HONG) History of TIA (transient ischemic attack) History of myocardial infarction Diabetes mellitus type 2 with complications Non-pressure chronic ulcer of ankle with fat layer exposed Secondary hyperparathyroidism Non-pressure chronic ulcer of right ankle with necrosis of muscle Non-pressure chronic ulcer of left ankle with necrosis of muscle Adverse effect of synthetic cannabinoids, initial encounter Avery coma scale score 13-15, at arrival to emergency department Acute alteration in mental status Short Achilles tendon (acquired), left ankle Short Achilles tendon (acquired), right ankle Acquired cavovarus deformity of left foot Acquired cavovarus deformity of right foot Type 2 diabetes mellitus with diabetic polyneuropathy Adult failure to thrive ESRD (end stage renal disease) on dialysis Drowsiness Mental status, decreased Carotid artery stenosis MSSA bacteremia ESRD on hemodialysis Osteomyelitis Anemia in chronic illness Type 2 diabetes mellitus Foot osteomyelitis, left Chronic renal disease, stage 4, severely decreased glomerular filtration rate (GFR) between 15-29 mL/min/1.73 square meter Acute on chronic anemia Chronic ulcer of right foot with necrosis of bone Chronic kidney disease, stage 4 (severe) Diabetes mellitus with diabetic polyneuropathy Diabetic foot ulcers Chronic kidney disease, stage 3b Charcot's joint, right ankle and foot Charcot's joint, left ankle and foot Cellulitis Acute lumbar radiculopathy Essential hypertension Adult failure to thrive COVID-19 (08/28/21) Chronic ulcer of right leg with fat layer exposed Ulcer of left foot with fat layer exposed Chronic ulcer of right foot with fat layer exposed Hyperparathyroidism, secondary renal Iron deficiency anemia Bilateral edema of lower extremity Chronic foot pain Non-pressure chronic 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 layer exposed Debility Charcot's joint of right foot Diabetes Non-smoker Myocardial infarct Hypertension TIA (transient ischemic attack) Amputation foot, bilat Non-pressure chronic ulcer of other part of left foot with fat layer exposed 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 Ulcer of left foot with necrosis of muscle Ulcer of left foot with muscle involvement without evidence of necrosis Anxiety and depression Diabetic infection of left foot Delayed wound healing Non-compliance Diabetic polyneuropathy Ischemic cardiomyopathy Obesity (BMI 30.0-34.9) Acquired varus deformity of left foot Acquired varus deformity of right foot Atherosclerosis of [place] coronary artery of [place] heart without angina pectoris Hemoglobin A1c greater than 9.0% NSTEMI (non-ST elevated myocardial infarction) (09/20/18) GERD (gastroesophageal reflux disease) HLD (hyperlipidemia) Back pain, chronic RLS (restless legs syndrome) Home Medications ?Medication ?Instructions ?Recorded ?Last Taken ?Type pantoprazole 40 mg tablet,delayed 40 mg PO BIDCM GERD 07/19/22 Unknown History release levothyroxine 25 mcg tablet 25 mcg PO DAILY thyroid Unknown History insulin lispro 100 unit/mL See Protocol subcut ACHS bl ood 09/13/24 Unknown History subcutaneous pen (Humalog KwikPen sugar (U-100) Insulin) L.acidophil,salivari-Bifido 1 cap PO 4X/DAY probiotic #0 caps 09/21/24 Unknown Rx bifidum-Strep thermoph 175 mg capsule carvedilol 25 mg tablet 12.5 mg PO QHS blood pressur e 12/06/24 Unknown History levetiracetam 500 mg tablet 500 mg PO BID seizures Unknown History ondansetron HCl 4 mg tablet 4 mg PO Q8H PRN nausea and vomiting 02/28/25 Unknown History carvedilol 12.5 mg tablet (Coreg) 12.5 mg PO SUTUTHSA 03/18/25 Unknown History hydralazine 100 mg tablet 100 mg PO BID bp 03/18/25 Un known History melatonin 5 mg capsule 5 mg PO QHS sleep 03/18/25 U nknown History sucralfate 1 gram tablet 1 g PO ACHS indigestion 07/04 Unknown History acetaminophen 500 mg capsule 1,000 mg PO QHS PRN pain 04/11/25 Unknown History clobetasol-propionate 1 applic topical BID PRN jerry h 04/11/25 Unknown History insulin lispro 100 unit/mL 5 unit subcut ACHS blood srinivasan gar 04/11/25 Unknown History subcutaneous pen (Humalog KwikPen (U-100) Insulin) gabapentin 300 mg capsule 300 mg PO TID pain 30 days # 90 caps 05/02/25 Unknown Rx hydralazine 100 mg tablet 100 mg PO SUTUTHSA bp Unknown History atorvastatin 40 mg tablet (Lipitor) 40 mg PO QHS jayashree sterol 06/04/25 Unknown History hydroxyzine HCl 25 mg tablet 25 mg PO DAILY 06/04/25 U nknown History methadone 5 mg tablet 2.5 mg PO BID PRN pain 06/04 Unknown History aspirin 81 mg tablet,delayed 81 mg PO DAILY 06/24/25 U nknown History release (Enteric Coated Aspirin) iswybkzj-hkusmko-apdvrdr 24 24 g PO PER PKG DIR PRN bl ood sugar 06/24/25 Unknown History gram/31 gram oral gel (Insta-Glucose (with dextrin)) diazepam 2 mg tablet 2 mg PO QHS 06/24/25 Unknown History flash glucose sensor (FreeStyle 06/24/25 Unknown Hist ory Puneet 2 Sensor kit) levetiracetam 250 mg tablet 250 mg PO .COMPLEX 5 Unknown History melatonin 10 mg capsule 10 mg PO QHS 06/24/25 Unknow n History paroxetine HCl 30 mg tablet 30 mg PO QHS 06/24/25 Unkn own History Allergy/AdvReac Type Severity Reaction Status Date / Time fentanyl Allergy Other Verified 07/10/25 23:12 Penicillins Allergy swelling Verified 07/10/25 23:12 in throat vancomycin Allergy Itching Verified 07/10/25 23:12 metronidazole AdvReac Nausea Verified 07/10/25 23:12 Family History Mother Diabetes CVA (cerebral vascular accident) Brother CAD (coronary artery disease) CABG X 3 Cancer testicular Diabetes Brother CAD (coronary artery disease) CABG X3 Diabetes Brother CAD (coronary artery disease) Stents Diabetes Sister CAD (coronary artery disease) CABG x 3 CVA (cerebral vascular accident) Diabetes Surgical History History of cardiac catheterization History of History of foot surgery History of bilateral carpal tunnel release History of rotator cuff surgery History of coronary artery stent placement (12/31/20) Social History household members: none number of children: 2 current occupational status: disabled Smoking Status: Never smoker alcohol intake: never substance use type: does not use caffeine: Yes Type: carbonated beverages Number of servings: 2 ROS ROS ED Constitutional Constitutional ED: Denies chills or fever(s) Eyes Eyes: Denies blurry vision or change in vision ENT ENT ED: Denies sore throat Cardiovascular Cardiovascular: Reports other Details: Negative syncope ; Denies chest pain Respiratory/Chest Respiratory/Chest: Denies cough or dyspnea Gastrointestinal Gastrointestinal: Denies abdominal pain, diarrhea, nausea or vomiting Musculoskeletal Musculoskeletal: Reports back pain and other Details: Bilateral hip/leg pain Integumentary Reports other Details: Positive chronic wounds Neurologic Neurologic: Denies headache(s) Hematologic/Lymphatic Hematologic/Lymphatic: Denies easy bleeding or easy bruising EXAM Physical Exam Const Vital Signs: 07/17/25 00:39 07/17/25 00:43 Temperature 98.3 F Temperature Source Oral Pulse Rate 77 Respiratory Rate 26 H Respiratory Effort Normal Respiratory Depth Normal Respiratory Pattern Normal Blood Pressure 187/87 H Blood Pressure Mean 120 Pulse Ox 94 Oxygen Delivery Method Room Air Room Air Positive well nourished and well developed General Appearance ED: well developed HEENT HEENT Narrative: Normocephalic atraumatic No signs of depressed or basilar skull fracture Eyes PERRL and EOMs intact bilaterally Neck supple Neck Narrative: No bony deformity or step-off of the cervical spine No midline tenderness to palpation Chest Wall palpation of chest normal Chest Narrative: No bony deformity or crepitus noted Resp normal respiratory effort and clear to auscultation bilaterally Resp Narrative: Breath sounds are diminished throughout but overall clear to auscultation without nasal flaring retractions tachypnea or accessory muscle use Cardio regular rate and regular rhythm Back/Spine Back/Spine Narrative: No bony deformity or step-off of the thoracic or lumbar spine There is no midline pain with palpation over top of the thoracic spine however there is midline pain towards the upper midportion of the lumbar region Extremity Extremity Narrative: Pelvis is stable there is no shortening or external rotation of either lower extremity No obvious bony deformity or joint effusion No signs of long bone injury Compartments are soft and compressible going against compartment syndrome No physical exam findings to suggest patellar tendon rupture or ligamentous tear of the knee Fistula in place in the left upper extremity with palpable thrill and bruit. There is mild asymmetric swelling of the left arm/hand which has been chronic in nature. Neuro oriented x3 and CN's II-XII intact bilaterally Sensorium / Orientation: alert Psych Mood & Affect: anxious and tearful Skin Skin Narrative: Patient has chronic stasis changes and chronic wounds without acute laceration o r hematoma noted MDM MDM MDM Narrative Medical decision making narrative: Patient arrived to the ER hypertensive but has a past medical history of this and otherwise with stable vitals. She reported a mechanical fall as she was up with her walker and fell asleep leading her to fall backwards and land on her buttock. With compression to the spine occurring with this and her reporting low back pain there is concern for a lumbar compression fracture versus burst fracture versus spondylolisthesis. As she is also reporting pain in the bilateral hips there is concern for potential hip fracture. By physical exam she does not have findings of patellar tendon rupture or ligamentous injury of either knee. She is only on an aspirin not Coumadin Xarelto or Eliquis and she did not strike her head and there is no signs of head injury so I have low concern for traumatic subarachnoid or subdural hemorrhage and do not feel the need for head CT. Also as the fall was mechanical I do not feel the need for cardiac or syncope workup. She did not have pain on palpation across the cervical or thoracic spine and therefore I felt no need for imaging as concern for a cervical or thoracic compression fracture is low. The patient was given her 5 mg dose of methadone which she takes daily in order to help with pain and also prevent withdrawal symptoms as she states she has been out of the drug for approximately 48 hours. Imaging of her back and hips revealed the hardware in her low back to be intact and in place with degenerative changes but no acute fracture. There is also arthritic degenerative changes of her pelvis and hip but no acute fracture. Therefore at this time with no signs of acute trauma there is no need for further intervention and she is otherwise safe for discharge. History & Record Review Discussion w/independent historian: Patient Additional record(s) reviewed:: Prior inpatient record and Prior ED visit Radiography Diagnostic Testing: Clinical Impression(s) from Imaging Studies Lumbar Spine CT 07/17/25 00:59 IMPRESSION: No CT evidence of an acute bone abnormality. Reading Location: [place] [address] Hip/Pelvis X-Ray 07/17/25 01:20 IMPRESSION: No evidence for acute abnormality. Reading Location: [place] [address] 1 view pelvis x-ray with bilateral hips as interpreted by the emergency medicine physician reveals osteoarthritic and degenerative changes without acute fracture dislocation or joint effusion Discharge Plan Triage Chief Complaint: Fall ED Provider: Sergio John Dx/Rx/DC Orders Clinical Impression: Accidental fall, Lumbar contusion, Contusion of hip, Chronic pain, Debility, ESRD (end stage renal disease) on dialysis, Type 2 diabetes mellitus with diabetic polyneuropathy Instructions: ED Back Contusion, ED Fall Prevention Prescriptions: No Action levetiracetam 500 mg tablet 500 mg PO BID ondansetron HCl 4 mg tablet 4 mg PO Q8H PRN (Reason: nausea and vomiting) pantoprazole 40 mg tablet,delayed release (DR/EC) 40 mg PO BIDCM carvedilol 25 mg tablet 12.5 mg PO QHS insulin lispro [Humalog KwikPen Insulin] 100 unit/mL Insulin Pen See Protocol subcut ACHS Protocol: 6. Sliding Scale Insulin Custom Condition: 150-200 Dose/Route: 2u Condition: 201-250 Dose/Route: 4u Condition: 251-300 Dose/Route: 6u Condition: 301-350 Dose/Route: 8u Condition: 351-400 Dose/Route: 10u Condition: 401-450 Dose/Route: 12u Condition: 451 or above Instruction: call physician Protocol Text: Custom Sliding Scale L.acidoph,saliva-B.bif-S.therm 175 mg Capsule 1 cap PO 4X/DAY Qty: 0 0RF hydralazine 100 mg tablet 100 mg PO SUTUTHSA Rx Instructions: do not give on dialysis days hydroxyzine HCl 25 mg tablet 25 mg PO DAILY Rx Instructions: in afternoon atorvastatin [Lipitor] 40 mg tablet 40 mg PO QHS methadone 5 mg tablet 2.5 mg PO BID PRN (Reason: pain) aspirin [Enteric Coated Aspirin] 81 mg tablet,delayed release (DR/EC) 81 mg PO DAILY diazepam 2 mg tablet 2 mg PO QHS levetiracetam 250 mg tablet 250 mg PO .COMPLEX Rx Instructions: 250 mg orally mowefr hs with 500mg; melatonin 10 mg capsule 10 mg PO QHS Patient Comments: mar states pt taking both strengths paroxetine HCl 30 mg tablet 30 mg PO QHS (DME) FreeStyle Puneet 2 Sensor Kit MISCELLANEOUS Patient Comments: [NO ORIGINAL SIG] Insta-Glucose (with dextrin) 24 gram/31 gram gel 24 g PO PER PKG DIR PRN (Reason: blood sugar) Rx Instructions: swallow contents of entire tube; may swallow contents of another tube if no response after 10 minutes bs <60 levothyroxine 25 mcg tablet 25 mcg PO DAILY Patient Comments: TAKE 1 TABLET BY MOUTH EVERY DAY BEFORE BREAKFAST melatonin 5 mg capsule 5 mg PO QHS Patient Comments: mar states pt taking both strengths carvedilol [Coreg] 12.5 mg tablet 12.5 mg PO SUTUTHSA Rx Instructions: must administer with a meal/food DO NOT ADMINISTER BEFORE DIALYSIS hydralazine 100 mg tablet 100 mg PO BID sucralfate 1 gram Tablet 1 g PO ACHS acetaminophen 500 mg capsule 1,000 mg PO QHS PRN (Reason: pain) clobetasol-propionate 1 applic topical BID PRN (Reason: rash) insulin lispro [Humalog KwikPen Insulin] 100 unit/mL insulin pen 5 unit subcut ACHS gabapentin 300 mg capsule 300 mg PO TID 30 Days Qty: 90 0RF Primary Care Provider: Pat Hughes TIME STUDY ENGINEER Referrals: Pat Hughes TIME STUDY ENGINEER, TIME STUDY ENGINEER-C [Primary Care Provider, Medical] Activity Restrictions/Additional Instructions: Your imaging studies did not reveal any new fracture to the back or pelvis/hips or derangement to your previous surgery. Please continue all of your home medication as directed by your doctor and return to the ER should you have any further concerns Print Language: Occitan Disposition Disposition: Home, Self Care
[2025-07-17 02:38] VITALS: BP 176/82; BP 176/83; PULSE 86; RESP 16; RESP 18; TEMP 36.8; O2SAT 98
[2025-07-17 04:00] VITALS: BP 187/86; PULSE 70; RESP 16; O2SAT 96
== END 2025-07-17 04:43 | disposition home or self-care (01) ==
PROVIDERS: Emergency Provider Emergency Medicine; PCP Nurse Practitioner Adult Health; Visit Provider Emergency Medicine
DX: S30.0XXA Contusion of lower back and pelvis, initial encounter (principal); N18.6 End stage renal disease; I12.0 Hypertensive chronic kidney disease with stage 5 chronic kidney disease or end stage renal disease; E11.22 Type 2 diabetes mellitus with diabetic chronic kidney disease; E11.42 Type 2 diabetes mellitus with diabetic polyneuropathy; Z79.4 Long term (current) use of insulin; S70.02XA Contusion of left hip, initial encounter; S70.01XA Contusion of right hip, initial encounter; W18.30XA Fall on same level, unspecified, initial encounter; Z99.2 Dependence on renal dialysis; M16.0 Bilateral primary osteoarthritis of hip; I25.5 Ischemic cardiomyopathy; G89.29 Other chronic pain; I25.10 Atherosclerotic heart disease of native coronary artery without angina pectoris; E78.5 Hyperlipidemia, unspecified; R53.81 Other malaise; Z79.82 Long term (current) use of aspirin; Z79.891 Long term (current) use of opiate analgesic; Z79.890 Hormone replacement therapy; Z79.899 Other long term (current) drug therapy; Z86.73 Personal history of transient ischemic attack (TIA), and cerebral infarction without residual deficits; Z95.5 Presence of coronary angioplasty implant and graft
CPT/HCPCS: 72131; 73502; 99284

== ENCOUNTER 2025-07-18 12:30 | Outpatient (RCR) | payer MEDICARE, MEDICAID, SELFPAY ==
[2018-09-21 13:23] VITALS: BMI 29.3
--- NOTE | 2025-06-06 12:52 | HP.PTEVAL ---
Patient's Visit Information Visit Information Visit Information: DIONY ROCHA is a 59 year old F referred to Physical Therapy by Dr. Raquel Mancilla DO with a diagnosis of CHARCOT'S ,TIA. Date of Evaluation: 06/06/25 Physical Therapist: Shayne Reyes, PT, Cert MDT, OCS Visit Plan Frequency: 2x /Week Duration: 4 Weeks Plan: PT INTERVENTIONS BLE STRENGTHENING ,GAIT/BALANCE TRAINING ,ENDURANCE PROGRAM AND FUNCTIONAL STRENGTHENING Subjective Subjective: This 59 y/o female presents to physical therapy with falls and decrease balance. Also evaluation for PMD. Patient has multiple comorbities influences patient . Patient has had recent falls . Patient states last fall yesterday in bathroom . Patient lives [facility] assisted living. Assist with dressing ,bathing as needed. Patient sates right leg gives way. Patient has constant pain feet and legs from neuropathy and charcot. Patient has h/o lumbar fusion last year had CVA affects left side. Patient is unable to walk with walker safely and mainly uses manual w/c.Patient has paresthesia/tingling . Patient has kidney failure has dialysis 3 x week ,Patient will benefit from PMD SOCAIL: lives assisted living Pain Bilateral Back: Pain Intensity (Out of 10): 8 Pain Intensity Range: 10 Bilateral Lower Extremity: Pain Intensity (Out of 10): 8 Pain Intensity Range: 10 Objective Objective: POSTURE: rounded shoulder head forward reduce lordosis ,hips/knees flexed PALPATION: unremarkable OBSERVATION: poor hygiene SKIN: decubi ulcer right ankle TRANSFERS: mod I GAIT: ambulates 10 ft with CGA walks on right lateral foot unsteady unsafe with fww FLEXABILITY: hamstrings mod tight ,mod tight achilles MMT: quads/hamstrings /hip right 3+/5 ,left 4-/5 ,ankle 4-/5,calf 3/5 BALANCE: fait with fww Balance/Special Test Scores CATSIB Score (Max score 120 seconds): 5 Lower Extremity Functional Score: 19 Goals Goal 1:: Patient to be I with HEP Goal Time Frame: 4-6 Weeks Goal 2:: Patient to improve strength BLE quads/hams/hip to 4/5 to improve mobility Goal Time Frame: 4-6 Weeks Goal 3:: Patient to improve LFES score by 5 points to improve QOL and function. Goal Time Frame: 4-6 Weeks Goal 4:: Patient to ambulate safely with FWW to bathroom at facility w/o falls Goal Time Frame: 4-6 Weeks Goal 5:: Patient to demonstrate 40% improvement with improved function Goal Time Frame: 4-6 Weeks Rehabilitation Potential Physical Therapy Diagnosis: This patient has impairments with weakness BLE ,decrease balance,decrease gait thus benefit from skilled PT .Patient will benefit from PMD due to risk of falls ,weakness BLE ,poor balance ,h/o falls along with extensive comorbities to influences condition . Patient is unable to use walker safety due to falls . Patent has difficulty using manual W/C .PMD will significantly improve the patient to participate in MRDL'S and expressed willingness to use PMD in home . Patient ahs mental and physical capabilities to operate PMD Rehabilitation Potential: Fair Anticipated Interventions Patient/Client Instruction: Educate patient on: Condition and Plan of Care For the Purpose of:: To decrease pain, To improve muscle performance and motor function, To improve ability to perform ADL's, To increase tolerance to activity/condition/position, To improve ability of physical actions for home/community/work/leisure, To improve gait and locomotor functions, To improve endurance, To improve balance, To improve tolerance to ADL's and Other Other: PMD Therapeutic Exercise to Include: Strength training, Endurance training, Balance training and Gait and locomotor training Comment: BLE For the Purpose of:: To improve muscle performance and motor function, To improve ability to perform ADL's, To increase tolerance to activity/condition/position, To improve ability of physical actions for home/community/work/leisure, To improve gait and locomotor functions, To increase flexibility/ROM, To improve endurance, To improve balance, To improve tolerance to ADL's and Other Other: PMD Text: Thank you for the opportunity to evaluate your patient. For Medicare and Medicare HMO plans, please review the plan of care and approve it. It will need to be FAXED BACK to us at [phone] for Medicare purposes. For Medicare only, by signing this I certify the plan of care. Please let me know if there are questions or concerns regarding this plan of care. Physician Signature: Date:
== END 2025-07-18 19:00 | disposition home or self-care (01) ==
LOC: PT 12:30
PROVIDERS: PCP Nurse Practitioner Adult Health; Referring Provider Internal Medicine; Visit Provider Internal Medicine
DX: R26.9 Unspecified abnormalities of gait and mobility (principal)
CPT/HCPCS: 97110; 97162; 97530

== ENCOUNTER 2025-07-25 07:18 | Day surgery (SDC) | payer MEDICARE, MEDICAID, SELFPAY ==
[2018-09-21 13:23] VITALS: BMI 29.3
[2025-07-24 08:26] VITALS: BMI 26.4
--- NOTE | 2025-07-25 14:39 | PCM.OPRPT ---
Operative Report (Standard) Operative Information Date of Procedure: 07/25/25 Pre-Operative Diagnosis: Left upper extremity edema after arteriovenous fistula creation Post-Operative Diagnosis: Same, central venous stenosis which is occlusive around her tunneled dialysis catheter Surgery/Procedure Performed: Fistulogram left upper extremity contract serviceman: No Type of Anesthesia: Local and Sedation,Conscious Procedure Start Time: 08:20 Procedure Stop Time: 08:35 Select all DRAINS/GRAFTS/IMPLANTS that apply: None Estimated Blood Loss: 7 Specimen collected: No Description of surgery: HPI: Patient is a 60-year-old female who several months prior had a left stage I basilic fistula creation. She has been difficult to schedule for her follow-ups often times not showing or canceling and at some point since that creation she has developed left upper extremity edema though she is unclear as to the timing. She is taken now for fistulogram with possible intervention. Description procedure: Upon obtaining informed consent and verification of correct patient procedure site the patient was taken to the [facility] where she was positioned prepped and draped in usual sterile fashion. Timeout was performed Sedation administered Versed and morphine. Skin overlying the basilic vein near the antecubital crease was anesthetized with 1% lidocaine and the vessel accessed under ultrasound guidance with micropuncture needle wire. This then exchanged for micropuncture sheath through which injection subtraction fistulogram was performed from the arterial anastomosis to the atriocaval junction. This revealed an area of stenosis at the confluence of the basilic vein to the brachial vein with moderate mid upper arm collaterals. Egress of contrast through the brachial and axillary vein was significantly slowed and there were large collaterals about the chest wall and neck. More centrally in the innominate vein was occlusive around her left tunneled IJ catheter with no filling into the more central innominate vein or SVC directly. Large chest wall and neck collaterals where the only outflow contrast. Given the location of the the area of stenosis at her tunneled catheter it was felt that no immediate intervention was feasible. It was discussed with the patient that options were to ligate her fistula and attempt access in the contralateral extremity or make efforts to move her tunneled catheter, treat her central venous stenosis, and potentially salvage the fistula. Ethilon pursestring was placed at the skin and the catheter drawn followed by 5 minutes of minute pressure to hemostasis was observed. The patient was then taken the recovery area with plan discharge to home to consider her options. Surgical Findings: See above Complications Complications: No
== END 2025-07-25 12:25 | disposition home or self-care (01) ==
PROVIDERS: PCP Nurse Practitioner Adult Health; Referring Provider Surgery Trauma Surgery; Visit Provider Surgery Trauma Surgery
DX: T82.856A Stenosis of peripheral vascular stent, initial encounter (principal); N18.6 End stage renal disease; I12.0 Hypertensive chronic kidney disease with stage 5 chronic kidney disease or end stage renal disease; E11.22 Type 2 diabetes mellitus with diabetic chronic kidney disease; K21.9 Gastro-esophageal reflux disease without esophagitis; I25.10 Atherosclerotic heart disease of native coronary artery without angina pectoris; E78.5 Hyperlipidemia, unspecified; Z79.01 Long term (current) use of anticoagulants; R60.0 Localized edema; Y71.8 Miscellaneous cardiovascular devices associated with adverse incidents, not elsewhere classified
CPT/HCPCS: 36901; 76937; 99152; 99153; C1894; Q9967

== ENCOUNTER → 2025-07-30 | Outpatient (CLI) | payer MEDICARE, MEDICAID, SELFPAY ==
[2018-09-21 13:23] VITALS: BMI 29.3
--- NOTE | 2025-07-30 15:33 | BI_ITS ---
EXAM: SCRN MAMM (CAD)W/ZEFERINO BILAT DATE: 07/30/2025 CLINICAL HISTORY: F, Age 60 y/o , SCREENING No family history. TECHNIQUE: Procedure Code: [id number] Modality: MG Procedure: SCRN MAMM (CAD)W/ZEFERINO BILAT COMPARISON: Prior exam(s) dated outside examination July 26, 2023.. FINDINGS: TISSUE DENSITY: The breasts are heterogeneously dense, which may obscure small masses. Bilateral Breast Mammographic Findings: No significant masses, calcifications or other abnormalities are identified. A dialysis catheter seen in the left axillary region. No suspicious masses, areas of developing architectural distortion, or suspicious calcifications. There has been no significant interval change. BI/SCRN MAMM (CAD)W/ZEFERINO BILAT IMPRESSION: Stable bilateral screening mammogram. OVERALL FINAL ASSESSMENT BI-RADS 1: NEGATIVE. RECOMMENDATION: Routine annual follow-up in 1 Year Additional Recommendation none A letter with findings and recommendations will be mailed to the patient. Reading Location: [place] [id number]
== END | disposition home or self-care (01) ==
LOC: OPBI 15:31
PROVIDERS: PCP Nurse Practitioner Adult Health; Referring Provider Nurse Practitioner Adult Health; Visit Provider Nurse Practitioner Adult Health
DX: Z12.31 Encounter for screening mammogram for malignant neoplasm of breast (principal)
CPT/HCPCS: 77063; 77067

== ENCOUNTER 2025-08-23 11:04 | Emergency (ER) | payer MEDICARE, MEDICAID, SELFPAY ==
[2018-09-21 13:23] VITALS: BMI 29.3
[2025-08-23 11:05] VITALS: BP 125/50; PULSE 74; RESP 18; TEMP 36.6; O2SAT 94; BMI 29.4
[2025-08-23 11:11] VITALS: BP 125/50; PULSE 71; RESP 14; TEMP 36.6; O2SAT 93
--- NOTE | 2025-08-23 12:04 | EKG12_ITS ---
Test Reason : BACK PAIN Blood Pressure : */* mmHG Vent. Rate : 76 BPM Atrial Rate : 76 BPM P-R Int : 172 ms QRS Dur : 98 ms QT Int : 426 ms P-R-T Axes : 61 13 42 degrees QTcB Int : 479 ms Normal sinus rhythm Minimal voltage criteria for LVH, may be normal variant ( [place] product ) Borderline ECG Confirmed by MARIELENA DELVALLE, SINDY ([id number]), assignment editor DAVID CARCAMO ([id number]) on 08/26/2025 8:16:34 AM Referred By: MERCEDES Confirmed By: SINDY PEGUERO MD
[2025-08-23 12:15] VITALS: PULSE 79; RESP 16; O2SAT 95
--- NOTE | 2025-08-23 12:15 | EX.ED.DYSGE1 ---
HPI History of Present Illness Chief Complaint: Alt LOC Narrative Narrative: Chief complaint and HPI: 68-year-old female with past medical history of DM2, ESRD on HD Tuesday/Tuesday/Tuesday, HTN, HLD, chronic pain on methadone presents for evaluation of drowsiness. Patient received dialysis today. After dialysis, patient's assisted living facility felt that the patient appeared drowsy and sent her into the emergency department for evaluation. Patient is currently alert. She denies fatigue, fever, chills, shortness of breath, chest pain abdominal pain, nausea, vomiting diarrhea. Patient does make urine denies any dysuria. Does endorse chronic pain. States she does not know why they sent her to the emergency department as she has no complaints. Review of systems: See HPI Medications: As listed on the chart Allergies: As listed on the chart PFSH: Per chart Vital signs: As listed on the chart. Reviewed. Physical exam: Gen: A&O x3, NAD Head: Normocephalic, atraumatic Eyes: No sclera icterus, conjunctiva clear, PERRL ENT: Moist mucous membranes Neck: Trachea midline, full range of motion CV: RRR, no murmurs, HD catheter without cellulitis Resp: Lungs CTA BL, no w/r/c GI: Abd soft, non-distended, non-tender, no r/r/g Musc: Moves all extremities Skin: Warm, dry Neuro: Alert, oriented, grossly intact, sensation intact Psych: Cooperative, appropriate mood and affect [facility] Medical History Swelling of left hand History of diabetes mellitus Missed dialysis End stage chronic kidney disease ESRD on dialysis History of stress test History of echocardiogram History of transesophageal echocardiography (HONG) History of TIA (transient ischemic attack) History of myocardial infarction Diabetes mellitus type 2 with complications Non-pressure chronic ulcer of ankle with fat layer exposed Secondary hyperparathyroidism Non-pressure chronic ulcer of right ankle with necrosis of muscle Non-pressure chronic ulcer of left ankle with necrosis of muscle Adverse effect of synthetic cannabinoids, initial encounter Avery coma scale score 13-15, at arrival to emergency department Acute alteration in mental status Short Achilles tendon (acquired), left ankle Short Achilles tendon (acquired), right ankle Acquired cavovarus deformity of left foot Acquired cavovarus deformity of right foot Type 2 diabetes mellitus with diabetic polyneuropathy Adult failure to thrive ESRD (end stage renal disease) on dialysis Drowsiness Mental status, decreased Carotid artery stenosis MSSA bacteremia ESRD on hemodialysis Osteomyelitis Anemia in chronic illness Type 2 diabetes mellitus Foot osteomyelitis, left Chronic renal disease, stage 4, severely decreased glomerular filtration rate (GFR) between 15-29 mL/min/1.73 square meter Acute on chronic anemia Chronic ulcer of right foot with necrosis of bone Chronic kidney disease, stage 4 (severe) Diabetes mellitus with diabetic polyneuropathy Diabetic foot ulcers Chronic kidney disease, stage 3b Charcot's joint, right ankle and foot Charcot's joint, left ankle and foot Cellulitis Acute lumbar radiculopathy Essential hypertension Adult failure to thrive COVID-19 (08/28/21) Chronic ulcer of right leg with fat layer exposed Ulcer of left foot with fat layer exposed Chronic ulcer of right foot with fat layer exposed Hyperparathyroidism, secondary renal Iron deficiency anemia Bilateral edema of lower extremity Chronic foot pain Non-pressure chronic 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 layer exposed Debility Charcot's joint of right foot Diabetes Non-smoker Myocardial infarct Hypertension TIA (transient ischemic attack) Amputation foot, bilat Non-pressure chronic ulcer of other part of left foot with fat layer exposed 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 Ulcer of left foot with necrosis of muscle Ulcer of left foot with muscle involvement without evidence of necrosis Anxiety and depression Diabetic infection of left foot Delayed wound healing Non-compliance Diabetic polyneuropathy Ischemic cardiomyopathy Obesity (BMI 30.0-34.9) Acquired varus deformity of left foot Acquired varus deformity of right foot Atherosclerosis of [place] coronary artery of [place] heart without angina pectoris Hemoglobin A1c greater than 9.0% NSTEMI (non-ST elevated myocardial infarction) (09/20/18) GERD (gastroesophageal reflux disease) HLD (hyperlipidemia) Back pain, chronic RLS (restless legs syndrome) Home Medications Medication Instructions Recorded Last Taken Type pantoprazole 40 mg tablet,delayed 40 mg PO BIDCM GERD 07/19/22 Unknown History release levothyroxine 25 mcg tablet 25 mcg PO DAILY thyroid 12/16/23 Unknown History insulin lispro 100 unit/mL See Protocol subcut ACHS blood 09/13/24 Unknown History subcutaneous pen (Humalog KwikPen sugar (U-100) Insulin) L.acidophil,salivari-Bifido 1 cap PO 4X/DAY probiotic #0 caps 09/21/24 Unknown Rx bifidum-Strep thermoph 175 mg capsule carvedilol 25 mg tablet 12.5 mg PO QHS blood pressure 12/06/24 Unknown History levetiracetam 500 mg tablet 500 mg PO BID seizures 12/06/24 Unknown History ondansetron HCl 4 mg tablet 4 mg PO Q8H PRN nausea and vomiting 02/28/25 Unknown History carvedilol 12.5 mg tablet (Coreg) 12.5 mg PO SUTUTHSA 03/18/25 07/25/25 History hydralazine 100 mg tablet 100 mg PO BID bp 03/18/25 07/25/25 History melatonin 5 mg capsule 5 mg PO QHS sleep 03/18/25 Unknown History sucralfate 1 gram tablet 1 g PO ACHS indigestion 03/18/25 Unknown History acetaminophen 500 mg capsule 1,000 mg PO QHS PRN pain 04/11/25 Unknown History clobetasol-propionate 1 applic topical BID PRN rash 04/11/25 Unknown History insulin lispro 100 unit/mL 5 unit subcut ACHS blood sugar 04/11/25 Unknown History subcutaneous pen (Humalog KwikPen (U-100) Insulin) gabapentin 300 mg capsule 300 mg PO TID pain 30 days #90 caps 05/02/25 Unknown Rx hydralazine 100 mg tablet 100 mg PO [facility] bp 05/28/25 Unknown History atorvastatin 40 mg tablet (Lipitor) 40 mg PO QHS cholesterol 06/04/25 Unknown History hydroxyzine HCl 25 mg tablet 25 mg PO DAILY 06/04/25 Unknown History methadone 5 mg tablet 2.5 mg PO BID PRN pain 06/04/25 Unknown History aspirin 81 mg tablet,delayed 81 mg PO DAILY 06/24/25 Unknown History release (Enteric Coated Aspirin) lladkxbw-vqfxkqn-dnnzxjl 24 24 g PO PER PKG DIR PRN blood sugar 06/24/25 Unknown History gram/31 gram oral gel (Insta-Glucose (with dextrin)) diazepam 2 mg tablet 2 mg PO QHS 06/24/25 Unknown History flash glucose sensor (FreeStyle 06/24/25 Unknown History Puneet 2 Sensor kit) levetiracetam 250 mg tablet 250 mg PO .COMPLEX 06/24/25 Unknown History melatonin 10 mg capsule 10 mg PO QHS 06/24/25 Unknown History paroxetine HCl 30 mg tablet 30 mg PO QHS 06/24/25 Unknown History Allergy/AdvReac Type Severity Reaction Status Date / Time fentanyl Allergy Other Verified 07/10/25 23:12 Penicillins Allergy swelling Verified 07/10/25 23:12 in throat vancomycin Allergy Itching Verified 07/10/25 23:12 metronidazole AdvReac Nausea Verified 07/10/25 23:12 Family History Mother Diabetes CVA (cerebral vascular accident) Brother CAD (coronary artery disease) CABG X 3 Cancer testicular Diabetes Brother CAD (coronary artery disease) CABG X3 Diabetes Brother CAD (coronary artery disease) Stents Diabetes Sister CAD (coronary artery disease) CABG x 3 CVA (cerebral vascular accident) Diabetes Surgical History History of cardiac catheterization History of History of foot surgery History of bilateral carpal tunnel release History of rotator cuff surgery History of coronary artery stent placement (12/31/20) Social History household members: none number of children: 2 current occupational status: disabled Smoking Status: Never smoker alcohol intake: never substance use type: does not use caffeine: Yes Type: carbonated beverages Number of servings: 2 EXAM Physical Exam Const Vital Signs: 08/23/25 11:05 08/23/25 11:11 08/23/25 12:15 Temperature 97.9 F 97.9 F Temperature Source Oral Oral Pulse Rate 74 71 79 Respiratory Rate 18 14 16 Blood Pressure 125/50 H 125/50 H Blood Pressure Mean 75 75 Pulse Ox 94 93 95 Oxygen Delivery Method Room Air Room Air 08/23/25 12:27 Temperature 98.2 F Temperature Source Oral Pulse Rate 75 Respiratory Rate 16 Blood Pressure 164/71 H Blood Pressure Mean 102 Pulse Ox 94 Oxygen Delivery Method Room Air MDM MDM MDM Narrative Medical decision making narrative: 68-year-old female with past medical history of DM2, ESRD on HD Tuesday/Tuesday/Tuesday, HTN, HLD, chronic pain on methadone presents for evaluation of drowsiness. Patient received dialysis today. After dialysis, patient's assisted living facility felt that the patient appeared drowsy and sent her into the emergency department for evaluation. Patient is currently alert and oriented x 3. She denies any fatigue or symptoms other than her chronic pain. Vitals stable other than mild hypertension. Differential diagnosis includes but is not limited to fatigue secondary to HD, electrolyte abnormality, UTI. Will obtain basic labs with a urine. During workup patient endorses chronic pain. Tylenol ordered. Nursing did reach out to the facility, patient no longer on methadone instead [place]. She missed her dose this morning. This is likely the cause of her chronic pain. Patient received Tylenol therefore we will give oxycodone to treat her chronic pain. CBC without leukocytosis. Patient has baseline anemia. BMP without significant electrolyte abnormality. ESRD. UA negative for UTI. At this point in time, no clear etiology for patient's resolved fatigue. Suspect it was secondary to HD. Patient stable to discharge home. She confirmed understand the plan. EKG: Interpreted by me/EM physician: EKG shows normal sinus rhythm with LVH. No acute ischemic changes. Heart rate 76 Impression: 1. Fatigue, resolved 2. ESRD on HD 3. Chronic pain Lab Data Labs: Laboratory Results - last 24 hr 08/23/25 08/23/25 11:20 12:25 WBC 4.8 RBC 4.02 L Hgb 11.5 L Hct 37.7 MCV 93.8 MCH 28.6 MCHC 30.5 L RDW Std Deviation 55.5 H RDW Coeff of Fior 16.6 H Plt Count 227 MPV 11.1 Immature Gran % (Auto) 0.200 Neut % (Auto) 76.2 H Lymph % (Auto) 12.6 L [place] % (Auto) 8.1 Eos % (Auto) 2.3 Baso % (Auto) 0.6 Absolute Neuts (auto) 3.7 Absolute Lymphs (auto) 0.61 L Nucleated RBC % 0 Sodium 140 Potassium 3.7 Chloride 97 L Carbon Dioxide 30.7 Anion Gap 12 BUN 20 H Creatinine 2.86 H Estim Creat Clear Calc 21.89 L Est GFR (MDRD) Non-Af 18 L BUN/Creatinine Ratio 6.9 L Glucose 149 H Calcium 9.6 Urine Color Yellow Urine Clarity Clear Urine pH 8.0 Ur Specific [place] 1.010 Urine Protein 500 H Urine Glucose (UA) 250 H Urine Ketones Negative Urine Occult Blood Negative Urine Nitrite Negative Urine Bilirubin Negative Urine Urobilinogen Normal Ur Leukocyte Esterase Negative Urine RBC 0 SEEN Urine WBC 0 SEEN Ur Squamous Epith Cells 0 SEEN Urine Bacteria 0 SEEN Urine Mucus 0 SEEN Discharge Plan Triage Chief Complaint: Alt LOC ED Provider: Juancarlos Garcia Dx/Rx/DC Orders Clinical Impression: Fatigue, ESRD on dialysis Instructions: Coping With Kidney Failure Prescriptions: No Action levetiracetam 500 mg tablet 500 mg PO BID ondansetron HCl 4 mg tablet 4 mg PO Q8H PRN (Reason: nausea and vomiting) pantoprazole 40 mg tablet,delayed release (DR/EC) 40 mg PO BIDCM carvedilol 25 mg tablet 12.5 mg PO QHS insulin lispro [Humalog KwikPen Insulin] 100 unit/mL Insulin Pen See Protocol subcut ACHS Protocol: 6. Sliding Scale Insulin Custom Condition: 150-200 Dose/Route: 2u Condition: 201-250 Dose/Route: 4u Condition: 251-300 Dose/Route: 6u Condition: 301-350 Dose/Route: 8u Condition: 351-400 Dose/Route: 10u Condition: 401-450 Dose/Route: 12u Condition: 451 or above Instruction: call physician Protocol Text: Custom Sliding Scale L.acidoph,saliva-B.bif-S.therm 175 mg Capsule 1 cap PO 4X/DAY Qty: 0 0RF hydralazine 100 mg tablet 100 mg PO SUTUTHSA Rx Instructions: do not give on dialysis days hydroxyzine HCl 25 mg tablet 25 mg PO DAILY Rx Instructions: in afternoon atorvastatin [Lipitor] 40 mg tablet 40 mg PO QHS methadone 5 mg tablet 2.5 mg PO BID PRN (Reason: pain) aspirin [Enteric Coated Aspirin] 81 mg tablet,delayed release (DR/EC) 81 mg PO DAILY diazepam 2 mg tablet 2 mg PO QHS levetiracetam 250 mg tablet 250 mg PO .COMPLEX Rx Instructions: 250 mg orally mowefr hs with 500mg; melatonin 10 mg capsule 10 mg PO QHS Patient Comments: mar states pt taking both strengths paroxetine HCl 30 mg tablet 30 mg PO QHS (DME) FreeStyle Puneet 2 Sensor Kit MISCELLANEOUS Patient Comments: [NO ORIGINAL SIG] Insta-Glucose (with dextrin) 24 gram/31 gram gel 24 g PO PER PKG DIR PRN (Reason: blood sugar) Rx Instructions: swallow contents of entire tube; may swallow contents of another tube if no response after 10 minutes bs <60 levothyroxine 25 mcg tablet 25 mcg PO DAILY Patient Comments: TAKE 1 TABLET BY MOUTH EVERY DAY BEFORE BREAKFAST melatonin 5 mg capsule 5 mg PO QHS Patient Comments: mar states pt taking both strengths carvedilol [Coreg] 12.5 mg tablet 12.5 mg PO SUTUTHSA Rx Instructions: must administer with a meal/food DO NOT ADMINISTER BEFORE DIALYSIS hydralazine 100 mg tablet 100 mg PO BID sucralfate 1 gram Tablet 1 g PO ACHS acetaminophen 500 mg capsule 1,000 mg PO QHS PRN (Reason: pain) clobetasol-propionate 1 applic topical BID PRN (Reason: rash) insulin lispro [Humalog KwikPen Insulin] 100 unit/mL insulin pen 5 unit subcut ACHS gabapentin 300 mg capsule 300 mg PO TID 30 Days Qty: 90 0RF Primary Care Provider: Pat Hughes CONTACT CENTER CONSULTANT Referrals: Pat Hughes CONTACT CENTER CONSULTANT, CONTACT CENTER CONSULTANT-C [Primary Care Provider, Medical] - 3-5 Days Activity Restrictions/Additional Instructions: Follow-up with primary care physician. No clear reason for your fatigue. May have just been worn out from dialysis. Return back to ED if symptoms change or worsen Print Language: [place] Disposition Disposition: Home, Self Care
[2025-08-23 12:22] LABS: Hematocrit 37.7 % (37-47); Hemoglobin 11.5 g/dL (12.0-15.0); Immature Granulocytes Count 0.010 X10^3/uL (0.0-0.0); Mean Corp Hgb Conc 30.5 g/dL (32-36); Mean Corpuscular Volume 93.8 fL (81-99); Mean Platelet Vol. 11.1 fl (6.2-12.0); NRBC Flagged by Analyzer 0 % (0-5); Platelet Count 227 K/mm3 (150-450); RBC Distribution Width CV 16.6 % (11.6-14.6); RBC Distribution Width SD 55.5 fl (35.1-43.9); Red Blood Count 4.02 M/mm3 (4.2-5.4); White Blood Count 4.8 K/mm3 (4.4-11.0)
[2025-08-23 12:27] VITALS: BP 164/71; PULSE 75; RESP 16; TEMP 36.8; O2SAT 94
[2025-08-23 12:29] LABS: Mucous, Urine 0 SEEN /hpf (<or=2+); Red Blood Cells-Urine 0 SEEN /hpf (0-5); Squamous Epithelial Cells - UA 0 SEEN /hpf (5-10)
[2025-08-23 12:33] LABS: Color, Urine Yellow (Yellow); Glucose, Dipstick 250 mg/dl (Normal); Ketone-Dipstick Negative (Negative); Leukocyte Esterase-Dipstick Negative /ul (Negative); Nitrite-Dipstick Negative (Negative); Occult Blood-Urine Negative /ul (Negative); Protein-Dipstick 500 mg/dl (Negative); Specific Gravity, Urine 1.010 (1.002-1.030); Urine Bilirubin Dipstick Negative (Negative)
[2025-08-23 12:55] LABS: Anion Gap 12 (5-15); BUN 20 mg/dL (4-19); BUN/Creat Ratio 6.9 RATIO (10-20); Calcium,Total 9.6 mg/dL (7.6-11.0); Carbon Dioxide 30.7 mmol/L (21.0-32.0); Chloride 97 mmol/L (98-108); Estimated Creatinine Clearance 21.89 ml/min (50-250); Glucose 149 mg/dL (70-99); Potassium 3.7 mmol/L (3.3-5.1)
--- NOTE | 2025-08-23 13:09 | ED.RN ---
With pt permission, called Trisha (daughter/POA), daughter unable to give ride back home at this time.
--- NOTE | 2025-08-23 13:15 | ED.RN ---
Report called to Aysha Suero RN. Facility states pt is no longer on methadone, she is now taking hydrocodone/acetaminophen 5-[address] Inman notified.
[2025-08-23 13:35] VITALS: BP 164/71; PULSE 75; RESP 16; TEMP 36.8; O2SAT 94
== END 2025-08-23 13:57 | disposition home or self-care (01) ==
PROVIDERS: Emergency Provider Surgery; PCP Nurse Practitioner Adult Health; Visit Provider Surgery
DX: I12.0 Hypertensive chronic kidney disease with stage 5 chronic kidney disease or end stage renal disease (principal); N18.6 End stage renal disease; E11.22 Type 2 diabetes mellitus with diabetic chronic kidney disease; Z79.4 Long term (current) use of insulin; G89.29 Other chronic pain; R53.83 Other fatigue; Z99.2 Dependence on renal dialysis; Z79.899 Other long term (current) drug therapy
CPT/HCPCS: 80048; 81001; 85025; 93005; 99285; A4216

== ENCOUNTER 2025-09-16 15:48 | Emergency (ER) | payer MEDICARE, MEDICAID, SELFPAY ==
[2018-09-21 13:23] VITALS: BMI 29.3
[2025-09-16 15:51] VITALS: BP 183/86; PULSE 86; RESP 18; TEMP 36.8; O2SAT 97; BMI 30.1
--- NOTE | 2025-09-16 16:05 | ED.VIS.BACK ---
HPI History of Present Illness Chief Complaint: Back Narrative Narrative: Patient is a 60-year-old female presenting to the emergency department for back pain and abdominal pain for 2 days. Patient has an extensive past medical history of CKD on dialysis Tuesday (just went today), peripheral vascular disease, diabetic neuropathy, CVA, seizures, AK, type 2 diabetes, chronic pain on norco, methadone and gabapentin. Patient states that 2 days ago she ran out of her chronic pain medication, Paicines. States that she is at a nursing facility and she was supposed to go to her pain management appointment at Dr. Matute on but they did not set up a ride so she missed her appointment. She now has the appointment rescheduled for this . States that her chronic back pain is flaring up and she also has abdominal pain, mainly lower. Denies pain in her legs, states she has restless leg syndrome that is unchanged. Denies chest pain or shortness of breath. Denies any fever, chills, nausea, vomiting, dysuria or hematuria. Denies any red flag back pain signs including numbness or weakness in her legs, bowel or bladder retention or incontinence, saddle anesthesia, fevers, IV drug use. Patient asked that she be given 3 Paicines because this is how much she has missed today. [facility] Medical History Charcot's joint, right ankle and foot Swelling of left hand History of diabetes mellitus Missed dialysis End stage chronic kidney disease ESRD on dialysis History of stress test History of echocardiogram History of transesophageal echocardiography (HONG) History of TIA (transient ischemic attack) History of myocardial infarction Diabetes mellitus type 2 with complications Non-pressure chronic ulcer of ankle with fat layer exposed Secondary hyperparathyroidism Non-pressure chronic ulcer of right ankle with necrosis of muscle Non-pressure chronic ulcer of left ankle with necrosis of muscle Adverse effect of synthetic cannabinoids, initial encounter [place] coma scale score 13-15, at arrival to emergency department Acute alteration in mental status Short Achilles tendon (acquired), left ankle Short Achilles tendon (acquired), right ankle Acquired cavovarus deformity of left foot Acquired cavovarus deformity of right foot Type 2 diabetes mellitus with diabetic polyneuropathy Adult failure to thrive ESRD (end stage renal disease) on dialysis Drowsiness Mental status, decreased Carotid artery stenosis MSSA bacteremia ESRD on hemodialysis Osteomyelitis Anemia in chronic illness Type 2 diabetes mellitus Foot osteomyelitis, left Chronic renal disease, stage 4, severely decreased glomerular filtration rate (GFR) between 15-29 mL/min/1.73 square meter Acute on chronic anemia Chronic ulcer of right foot with necrosis of bone Chronic kidney disease, stage 4 (severe) Diabetes mellitus with diabetic polyneuropathy Diabetic foot ulcers Chronic kidney disease, stage 3b Charcot's joint, left ankle and foot Cellulitis Acute lumbar radiculopathy Essential hypertension Adult failure to thrive COVID-19 (08/28/21) Chronic ulcer of right leg with fat layer exposed Ulcer of left foot with fat layer exposed Chronic ulcer of right foot with fat layer exposed Hyperparathyroidism, secondary renal Iron deficiency anemia Bilateral edema of lower extremity Chronic foot pain Non-pressure chronic 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 layer exposed Debility Charcot's joint of right foot Diabetes Non-smoker Myocardial infarct Hypertension TIA (transient ischemic attack) Amputation foot, bilat Non-pressure chronic ulcer of other part of left foot with fat layer exposed 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 Ulcer of left foot with necrosis of muscle Ulcer of left foot with muscle involvement without evidence of necrosis Anxiety and depression Diabetic infection of left foot Delayed wound healing Non-compliance Diabetic polyneuropathy Ischemic cardiomyopathy Obesity (BMI 30.0-34.9) Acquired varus deformity of left foot Acquired varus deformity of right foot Atherosclerosis of [place] coronary artery of [place] heart without angina pectoris Hemoglobin A1c greater than 9.0% NSTEMI (non-ST elevated myocardial infarction) (09/20/18) GERD (gastroesophageal reflux disease) HLD (hyperlipidemia) Back pain, chronic RLS (restless legs syndrome) Home Medications ?Medication ?Instructions ?Recorded ?Last Taken ?Type pantoprazole 40 mg tablet,delayed 40 mg PO BIDCM GERD 07/19/22 Unknown History release levothyroxine 25 mcg tablet 25 mcg PO DAILY thyroid 12/16/23 Unknown History insulin lispro 100 unit/mL See Protocol subcut ACHS blood 09/13/24 Unknown History subcutaneous pen (Humalog KwikPen sugar (U-100) Insulin) carvedilol 25 mg tablet 12.5 mg PO QHS blood pressure 12/06/24 Unknown History levetiracetam 500 mg tablet 500 mg PO BID seizures 12/06/24 Unknown History ondansetron HCl 4 mg tablet 4 mg PO Q8H PRN nausea and vomiting 02/28/25 Unknown History carvedilol 12.5 mg tablet (Coreg) 12.5 mg PO SUTUTHSA 03/18/25 07/25/25 History hydralazine 100 mg tablet 100 mg PO BID bp 03/18/25 07/25/25 History melatonin 5 mg capsule 5 mg PO QHS sleep 03/18/25 Unknown History sucralfate 1 gram tablet 1 g PO ACHS indigestion 03/18/25 Unknown History acetaminophen 500 mg capsule 1,000 mg PO QHS PRN pain 04/11/25 Unknown History gabapentin 300 mg capsule 300 mg PO TID pain 30 days #90 caps 05/02/25 Unknown Rx hydralazine 100 mg tablet 100 mg PO SUTUTHSA bp 05/28/25 Unknown History atorvastatin 40 mg tablet (Lipitor) 40 mg PO QHS cholesterol 06/04/25 Unknown History hydroxyzine HCl 25 mg tablet 25 mg PO DAILY 06/04/25 Unknown History aspirin 81 mg tablet,delayed 81 mg PO DAILY 06/24/25 Unknown History release (Enteric Coated Aspirin) [id number] 24 24 g PO PER PKG DIR PRN blood sugar 06/24/25 Unknown History gram/31 gram oral gel (Insta-Glucose (with dextrin)) diazepam 2 mg tablet 2 mg PO QHS 06/24/25 Unknown History flash glucose sensor (FreeStyle 06/24/25 Unknown History Puneet 2 Sensor kit) levetiracetam 250 mg tablet 250 mg PO .COMPLEX 06/24/25 Unknown History melatonin 10 mg capsule 10 mg PO QHS 06/24/25 Unknown History paroxetine HCl 30 mg tablet 30 mg PO QHS 06/24/25 Unknown History cholecalciferol (vitamin D3) 50 50 mcg PO DAILY 09/16/25 Unknown History mcg (2,000 unit) capsule clobetasol 0.05 % topical cream 1 applic topical BID 09/16/25 Unknown History folic acid 800 mcg tablet 0.8 mg PO DAILY 09/16/25 Unknown History hydrocodone-acetaminophen 5-325mg 1 tab PO Q8H PRN pain 3 days #10 09/16/25 Unknown Rx 5mg-325mg tabs hydrocodone-acetaminophen 5-325mg 1 tab PO TID PRN PRN pain 09/16/25 Unknown History 5mg-325mg Allergy/AdvReac Type Severity Reaction Status Date / Time oxycodone Allergy Mild Shortness Verified 09/16/25 15:50 of breath fentanyl Allergy Other Verified 09/16/25 15:50 Penicillins Allergy swelling Verified 09/16/25 15:50 in throat vancomycin Allergy Itching Verified 09/16/25 15:50 metronidazole AdvReac Nausea Verified 09/16/25 15:50 Family History Mother Diabetes CVA (cerebral vascular accident) Brother CAD (coronary artery disease) CABG X 3 Cancer testicular Diabetes Brother CAD (coronary artery disease) CABG X3 Diabetes Brother CAD (coronary artery disease) Stents Diabetes Sister CAD (coronary artery disease) CABG x 3 CVA (cerebral vascular accident) Diabetes Surgical History History of cardiac catheterization History of History of foot surgery History of bilateral carpal tunnel release History of rotator cuff surgery History of coronary artery stent placement (12/31/20) Social History household members: none number of children: 2 current occupational status: disabled Smoking Status: Never smoker alcohol intake: never substance use type: does not use caffeine: Yes Type: carbonated beverages Number of servings: 2 ROS ROS ED ROS Narrative see HPI EXAM Physical Exam Narrative Exam Narrative: Vital signs: Reviewed General: Alert and oriented x 3. No acute distress. Chronically ill-appearing, no acute distress. HEENT: Head is normocephalic and atraumatic, sinuses nontender, pupils equal round and reactive. Nares are patent. Oropharynx and throat exams normal. Neck: Supple without lymphadenopathy nontender Cardiovascular: Regular rate and rhythm, no murmurs. No rubs or gallops. Normal S1 and S2 Respiratory: Clear to auscultation bilaterally. No wheezes, rales, rhonchi Abdominal: Soft and tender to palpation diffusely in the lower abdomen. Normal bowel sounds. No guarding or rebound. No CVA tenderness to palpation. Back: No midline cervical, thoracic or lumbar spinal tenderness to palpation. No step-offs or deformities. No rashes to the back. No erythema or swelling. There is a past healed surgical vertical scar. Extremities: 5/5 strength in bilateral lower extremities. Normal sensation in bilateral lower extremities. The rest of the physical exam is unremarkable Const Vital Signs: 09/16/25 15:51 09/16/25 19:48 09/16/25 20:40 Temperature 98.3 F 98.3 F Temperature Source Oral Pulse Rate 86 89 89 Respiratory Rate 18 18 Blood Pressure 183/86 H 169/92 H 160/95 H Blood Pressure Mean 118 117 116 Pulse Ox 97 97 Oxygen Delivery Method Room Air MDM MDM MDM Narrative Medical decision making narrative: Patient is a 60-year-old female presenting to the emergency department for abdominal pain and back pain. Patient was seen and examined. Vitals are stable. Patient resting bed comfortably no acute distress. Differential includes but is not limited to: Colitis, diverticulitis, UTI, pancreatitis, nephrolithiasis. Reviewed triage note, the patient denies any pain in her legs states that she has restless leg syndrome. She had no acute injury to her back, no red flag back pain signs. States that her back pain worsened 2 days ago and she stopped taking her narcotics. Do not think patient needs any imaging of her back/spine. Patient given a dose of norco here. CBC with no leukocytosis, normal hemoglobin. CMP with baseline to actually improved kidney dysfunction consistent with her receiving dialysis today. Hyperglycemia 272 with normal anion gap and bicarb not consistent with DKA. Baseline elevated alk phos of 165, normal AST, ALT and total bilirubin. Lipase within normal limits. Urinalysis no evidence of urinary tract infection. Notified by nursing staff that she is still having pain and requesting another dose of norco, this was given. She is on chronic pain management I suspect she has tolerance to these. CT of the abdomen pelvis shows circumferential bladder wall thickening suggestive of cystitis. No other acute intra-abdominal findings. Patient updated on the lab and imaging findings pain is much improved after the narcotics. I did speak with Dr. Matute about the patient, he asked that I confirm for last prescribed course of Paicines and make sure about it and that is up correctly. Recommended a short course of Paicines if needed to get her during her next appointment. This will be prescribed. Patient discharged from the Emergency Department. I do not feel that the patient's evaluation reveals any acute reason for admission at this time. I instructed them to either follow-up with their primary care physician or promptly return to the Emergency Department for reevaluation should symptoms worsen or new symptoms develop. I explained what symptoms would indicate the need to return to the emergency department. Shared decision making was used. The patient voiced understanding of the treatment plan and is agreeable with it. Clinical impression Abdominal pain Chronic back pain History & Record Review Discussion w/independent historian: Patient Additional record(s) reviewed:: Prior ED visit and Prior labs Lab Data Attestation: I reviewed the patient's lab results. Labs: Laboratory Results - last 24 hr 09/16/25 09/16/25 16:29 19:00 WBC 4.5 RBC 3.91 L Hgb 12.0 Hct 36.7 L MCV 93.9 MCH 30.7 MCHC 32.7 RDW Std Deviation 60.9 H RDW Coeff of Fior 17.6 H Plt Count 126 L MPV 11.6 Immature Gran % (Auto) 0.200 Neut % (Auto) 78.3 H Lymph % (Auto) 9.9 L [place] % (Auto) 9.7 Eos % (Auto) 1.5 Baso % (Auto) 0.4 Absolute Neuts (auto) 3.5 Absolute Lymphs (auto) 0.45 L Nucleated RBC % 0 Sodium 136 Potassium 5.1 Chloride 96 L Carbon Dioxide 26.5 Anion Gap 14 BUN 38 H Creatinine 4.51 H Estim Creat Clear Calc 14.05 L Est GFR (MDRD) Non-Af 11 L BUN/Creatinine Ratio 8.5 L Glucose 272 H Calcium 9.0 Total Bilirubin 0.41 AST 27 ALT 25 Alkaline Phosphatase 165 H Total Protein 7.2 Albumin 4.2 Globulin 3.0 Albumin/Globulin Ratio 1.4 Lipase 37 Urine Color Straw Urine Clarity Clear Urine pH 8.0 Ur Specific [place] 1.010 Urine Protein 500 H Urine Glucose (UA) 250 H Urine Ketones Negative Urine Occult Blood 25 H Urine Nitrite Negative Urine Bilirubin Negative Urine Urobilinogen Normal Ur Leukocyte Esterase Negative Urine RBC 0-5 SEEN Urine WBC 0-5 SEEN Ur Squamous Epith Cells 0-5 SEEN Urine Bacteria 0 SEEN Urine Mucus 0 SEEN Radiography Diagnostic Testing: Clinical Impression(s) from Imaging Studies Abdomen/Pelvis CT 09/16/25 17:45 IMPRESSION: Circumferential bladder wall thickening suggestive of cystitis. No other acute intra-abdominal findings. Few ancillary findings as noted. Reading Location: [facility] Discharge Plan Triage Chief Complaint: Back Other Complaint: Lower Extremity Injury ED Provider: Kamilla Taylor Dx/Rx/DC Orders Clinical Impression: Abdominal pain, Chronic pain Instructions: Abdominal Pain, ED Chronic Pain Prescriptions: New hydrocodone-acetaminophen 5-325 mg tablet 1 tab PO Q8H PRN (Reason: pain) 3 Days Qty: 10 0RF No Action levetiracetam 500 mg tablet 500 mg PO BID ondansetron HCl 4 mg tablet 4 mg PO Q8H PRN (Reason: nausea and vomiting) pantoprazole 40 mg tablet,delayed release (DR/EC) 40 mg PO BIDCM carvedilol 25 mg tablet 12.5 mg PO QHS insulin lispro [Humalog KwikPen Insulin] 100 unit/mL Insulin Pen See Protocol subcut ACHS Protocol: 6. Sliding Scale Insulin Custom Condition: 150-200 Dose/Route: 2u Condition: 201-250 Dose/Route: 4u Condition: 251-300 Dose/Route: 6u Condition: 301-350 Dose/Route: 8u Condition: 351-400 Dose/Route: 10u Condition: 401-450 Dose/Route: 12u Condition: 451 or above Instruction: call physician Protocol Text: Custom Sliding Scale hydralazine 100 mg tablet 100 mg PO [facility] Rx Instructions: do not give on dialysis days hydroxyzine HCl 25 mg tablet 25 mg PO DAILY Rx Instructions: in afternoon atorvastatin [Lipitor] 40 mg tablet 40 mg PO QHS aspirin [Enteric Coated Aspirin] 81 mg tablet,delayed release (DR/EC) 81 mg PO DAILY diazepam 2 mg tablet 2 mg PO QHS levetiracetam 250 mg tablet 250 mg PO .COMPLEX Rx Instructions: 250 mg orally mowefr hs with 500mg; melatonin 10 mg capsule 10 mg PO QHS Patient Comments: mar states pt taking both strengths paroxetine HCl 30 mg tablet 30 mg PO QHS (DME) FreeStyle Puneet 2 Sensor Kit MISCELLANEOUS Patient Comments: [NO ORIGINAL SIG] Insta-Glucose (with dextrin) 24 gram/31 gram gel 24 g PO PER PKG DIR PRN (Reason: blood sugar) Rx Instructions: swallow contents of entire tube; may swallow contents of another tube if no response after 10 minutes bs <60 hydrocodone-acetaminophen 5-325 mg tablet 1 tab PO TID PRN PRN (Reason: pain) folic acid 800 mcg tablet 0.8 mg PO DAILY cholecalciferol (vitamin D3) 50 mcg (2,000 unit) capsule 50 mcg PO DAILY clobetasol 0.05 % cream 1 applic topical BID levothyroxine 25 mcg tablet 25 mcg PO DAILY Patient Comments: TAKE 1 TABLET BY MOUTH EVERY DAY BEFORE BREAKFAST melatonin 5 mg capsule 5 mg PO QHS Patient Comments: mar states pt taking both strengths carvedilol [Coreg] 12.5 mg tablet 12.5 mg PO SUTUTHSA Rx Instructions: must administer with a meal/food DO NOT ADMINISTER BEFORE DIALYSIS hydralazine 100 mg tablet 100 mg PO BID sucralfate 1 gram Tablet 1 g PO ACHS acetaminophen 500 mg capsule 1,000 mg PO QHS PRN (Reason: pain) gabapentin 300 mg capsule 300 mg PO TID 30 Days Qty: 90 0RF Primary Care Provider: Pat Hughes NP Referrals: Leticia Matute MD [Med Staff - Active Staff, Pain Management] - As soon as possible Pat Hughes ECD, ECD-C [Primary Care Provider, Medical] Activity Restrictions/Additional Instructions: Please go to your pain management appointment on for further pain medication. You are prescribed enough to get you through until then. Your evaluation in the Emergency Department did not reveal any acute reason for admission. However, I want to emphasize that you may be early in the course of a disease process or illness even if it is not present. For this reason you should follow-up within 24 hours for reevaluation with either your primary care physician or if necessary back here in the Emergency Department. You should return to the Emergency Department immediately if your symptoms worsen or new symptoms develop. Print Language: Danish Disposition Disposition: Home, Self Care Discharge Date/Time: 09/16/25 21:19
[2025-09-16] MEDS: HYDROcodone Bitartrate/Apap 5/325 Tablet PO ×2 (16:48→18:41)
[2025-09-16 17:04] LABS: Hematocrit 36.7 % (37-47); Hemoglobin 12.0 g/dL (12.0-15.0); Immature Granulocytes Count 0.010 X10^3/uL (0.0-0.0); Mean Corp Hgb Conc 32.7 g/dL (32-36); Mean Corpuscular Volume 93.9 fL (81-99); Mean Platelet Vol. 11.6 fl (6.2-12.0); NRBC Flagged by Analyzer 0 % (0-5); POSITIVE DIFFERENTIAL YES; Platelet Count 126 K/mm3 (150-450); RBC Distribution Width CV 17.6 % (11.6-14.6); RBC Distribution Width SD 60.9 fl (35.1-43.9); Red Blood Count 3.91 M/mm3 (4.2-5.4); White Blood Count 4.5 K/mm3 (4.4-11.0)
[2025-09-16 17:21] LABS: AST(SGOT) 27 U/L (<=31); Alanine Aminotransfer ALT/SGPT 25 U/L (<=34); Albumin, Serum 4.2 g/dL (3.4-4.8); Alkaline Phosphatase 165 U/L (35-104); Anion Gap 14 (5-15); BUN 38 mg/dL (4-19); BUN/Creat Ratio 8.5 RATIO (10-20); Calcium,Total 9.0 mg/dL (7.6-11.0); Carbon Dioxide 26.5 mmol/L (21.0-32.0); Chloride 96 mmol/L (98-108); Estimated Creatinine Clearance 14.05 ml/min (50-250); Globulin 3.0 g/dL (2.2-4.2); Glucose 272 mg/dL (70-99); Lipase 37 U/L (13-75); Potassium 5.1 mmol/L (3.3-5.1)
--- NOTE | 2025-09-16 17:45 | CT_ITS ---
PROCEDURE: CT ABDOMEN/PELVIS W IV CONT ONLY 09/16/2025 REASON FOR EXAM: LOWER ABD PAIN TECHNIQUE: Procedure Code: [id number] Modality: CT Procedure: ABDOMEN/PELVIS W IV CONT ONLY Coronal and Sagittal reconstruction series were provided. CONTRAST: Isovue 370 VOLUME: 100 mL One or more dose reduction techniques were used (e.g., Automated exposure control, adjustment of the mA and/or kV according to patient size, use of iterative reconstruction technique. RADIATION DOSE SUMMARY: DLP: 1251.65 mGycm COMPARISON: None available. FINDINGS: Lung bases: Trace right basilar pleural effusion, with adjacent passive and rounded atelectasis. Mild left basilar dependent atelectasis. Mild cardiomegaly. Liver: No significant abnormality. Gallbladder: Grossly unremarkable. No biliary ductal dilatation. Spleen: Normal size and morphology. Pancreas: Within normal limits. Adrenals: Unremarkable. Kidneys: Unremarkable. No urolithiasis or hydronephrosis. Bladder: Underdistended, but appears to have circumferential wall thickening. Reproductive Organs: Unremarkable uterus and adnexae. Bowel: No evidence of obstruction or active inflammatory process. Normal appendix. Lymph nodes: No suspicious lymph node enlargement. Vasculature: Normal caliber abdominal aorta. Mild atherosclerotic disease. Peritoneum / Retroperitoneum: No ascites or free air. Bones: Small fat containing umbilical hernia. Multilevel degenerative changes of the spine. Postoperative changes of corpectomy from T11-L1 and with focal kyphoscoliosis, and posterior instrumented fusion from T10-L2. Stable alignment/appearance with no hardware complication appreciated. CT/Abdomen/Pelvis W IV Cont ONLY IMPRESSION: Circumferential bladder wall thickening suggestive of cystitis. No other acute intra-abdominal findings. Few ancillary findings as noted. Reading Location: [id number]
--- NOTE | 2025-09-16 19:08 | ED.RN ---
STraight cath completed and urine was sent to lab.
[2025-09-16 19:11] LABS: Mucous, Urine 0 SEEN /hpf (<or=2+)
[2025-09-16 19:48] VITALS: BP 169/92; PULSE 89
[2025-09-16 19:51] LABS: Color, Urine Straw (Yellow); Glucose, Dipstick 250 mg/dl (Normal); Ketone-Dipstick Negative (Negative); Leukocyte Esterase-Dipstick Negative /ul (Negative); Nitrite-Dipstick Negative (Negative); Occult Blood-Urine 25 /ul (Negative); Protein-Dipstick 500 mg/dl (Negative); Specific Gravity, Urine 1.010 (1.002-1.030); Urine Bilirubin Dipstick Negative (Negative)
[2025-09-16 20:26] LABS: Red Blood Cells-Urine 0-5 SEEN /hpf (0-5); Squamous Epithelial Cells - UA 0-5 SEEN /hpf (5-10)
[2025-09-16 20:40] VITALS: BP 160/95; PULSE 89; RESP 18; TEMP 36.8; O2SAT 97
--- NOTE | 2025-09-16 20:58 | ED.RN ---
Report called to [facility] jovanna.
== END 2025-09-16 21:19 | disposition home or self-care (01) ==
PROVIDERS: Emergency Provider Student in an Organized Health Care Education/Training Program; PCP Nurse Practitioner Adult Health; Visit Provider Student in an Organized Health Care Education/Training Program
DX: M54.9 Dorsalgia, unspecified (principal); N18.6 End stage renal disease; I12.0 Hypertensive chronic kidney disease with stage 5 chronic kidney disease or end stage renal disease; E11.22 Type 2 diabetes mellitus with diabetic chronic kidney disease; E11.65 Type 2 diabetes mellitus with hyperglycemia; E78.5 Hyperlipidemia, unspecified; I25.10 Atherosclerotic heart disease of native coronary artery without angina pectoris; R10.9 Unspecified abdominal pain; G89.29 Other chronic pain; Z99.2 Dependence on renal dialysis
CPT/HCPCS: 74177; 80053; 81001; 83690; 85025; 99285; Q9967; A4216

== ENCOUNTER → 2025-09-19 | Outpatient (CLI) | payer MEDICARE, MEDICAID, SELFPAY ==
[2018-09-21 13:23] VITALS: BMI 29.3
== END | disposition home or self-care (01) ==
PROVIDERS: PCP Nurse Practitioner Adult Health; Referring Provider Anesthesiology Pain Medicine; Visit Provider Anesthesiology Pain Medicine
DX: I10 Essential (primary) hypertension (principal)
CPT/HCPCS: 80307

== ENCOUNTER → 2025-09-20 | Outpatient (CLI) | payer MEDICARE, MEDICAID, SELFPAY ==
[2018-09-21 13:23] VITALS: BMI 29.3
== END | disposition home or self-care (01) ==
LOC: LAB.FUTURE 16:09
PROVIDERS: PCP Nurse Practitioner Adult Health; Visit Provider Anesthesiology Pain Medicine
DX: Z13.89 Encounter for screening for other disorder (principal)